=== PATIENT | female | born 1975 | race Caucasian/White ===

== ENCOUNTER 2023-03-01 11:47 | Emergency (ER) | payer BC, SELFPAY ==
[2023-03-01 11:58] VITALS: BP 153/94; PULSE 89; RESP 18; TEMP 36.8; O2SAT 94
--- NOTE | 2023-03-01 12:19 | PC.NURSE ---
pt arrived with aden catheter in place. pt states unknown when catheter was last changed. pt states she does not have home health and is unable to drive herself and has not been able to get to her appointments with her urologist. pt became upset when asked why she does not use home health pt donovanly states You guys are not listening to me, I cant drive myself to appointments . RN informed pt that home health will come directly to her home to help her with her care.
--- NOTE | 2023-03-01 12:22 | ED.ABDPAIN1 ---
HPI - Abdominal Pain General Chief Complaint: Urogenital-Female Stated Complaint: UTI SYMPTOMS Time Seen by Provider: 03/01/23 11:56 Source: patient Mode of arrival: Wheelchair Limitations: physical limitation History of Present Illness HPI narrative: this patient well known to us here for her ongoing problems and challenges with her urinary Alvares catheter system. She was told by her urologist to present to the emergency room for evaluation. She's undergone a number surgical procedures both at the [facility] in [place], [facility] ([facility]3] and since endoscopy and now she is under care of a urologist over in [facility]. She's not been running a fever, she's not had vomiting or diarrhea. From time to time her Alvares catheter falls out in the past, and to be replaced in the emergency room setting. Related Data Home Medications Medication Instructions Recorded Confirmed buprenorphine 8 mg-naloxone 2 mg 2.5 film sublingual Q24H 03/01/23 03/01/23 sublingual film bupropion HCl 150 mg 24 hr tablet, 150 mg PO DAILY 03/01/23 03/01/23 extended release cyclobenzaprine 10 mg tablet 10 mg PO Q8H 03/01/23 03/01/23 Allergies Allergy/AdvReac Type Severity Reaction Status Date / Time codeine Allergy Severe Verified 03/01/23 11:58 Penicillins Allergy Severe Anaphylaxis Verified 03/01/23 11:58 quetiapine [From Seroquel] Allergy Severe Seizure Verified 03/01/23 11:58 PFSH PFSH Social History Smoking status: Current every day smoker Exam Narrative Exam Narrative: awake alert good historian vital signs are normal. She looks very well does not appear ill or toxic or septic. This is a problem focused examination. Her abdominal area is not distended there is no guarding rebound or rigidity. Previous surgical incisions are noted. The nursing staff indicated that her arrival fully catheter was clogged did not appear to be in very good condition and was easily removed. We were able replace it with a nice new Alvares catheter and took a urine specimen from the new Alvares catheter for analysis. Screening lab work done because she says she feels thirsty. Her potassium was slightly low side but no other acute problems were noted on her lab Constitutional Vital Signs - 24 hr 03/01/23 11:58 Temperature 98.3 F Pulse Rate [Monitor] 89 Respiratory Rate 18 Blood Pressure [Left Arm] 153/94 H Pulse Oximetry 94 L Oxygen Delivery Method Room Air Course Vital Signs Vital signs: Vital Signs Temperature 98.3 F 03/01/23 11:58 Pulse Rate 89 03/01/23 11:58 Respiratory Rate 18 03/01/23 11:58 Blood Pressure 153/94 H 03/01/23 11:58 Pulse Oximetry 94 L 03/01/23 11:58 Oxygen Delivery Method Room Air 03/01/23 11:58 Temperature 98.3 F 03/01/23 11:58 Pulse Rate 89 03/01/23 11:58 Respiratory Rate 18 03/01/23 11:58 Blood Pressure 153/94 H 03/01/23 11:58 Pulse Oximetry 94 L 03/01/23 11:58 Oxygen Delivery Method Room Air 03/01/23 11:58 MDM - Abdominal Pain MDM Narrative Medical decision making narrative: patient here essentially for Alvares catheter change which is frequent for her. Her urine suggests early infection Maryanne will treat based on those findings and her history. Await urine cultures. Potassium will be given here in the Emergency Room. Lab Data Labs: Lab Results 03/01/23 03/01/23 03/01/23 Range/Units 12:11 12:29 12:33 WBC 11.2 H (4.0-11.0) 10^3/uL RBC 5.24 (4.20-5.40) 10^6/uL Hgb 15.8 (12.0-16.0) g/dL Hct 45.0 (36.0-48.0) % MCV 85.9 (81.0-99.0) fL MCH 30.2 (26.7-34.0) pg MCHC 35.1 (29.9-35.2) g/dL RDW 12.7 (11.0-15.0) % Plt Count 325 (150-450) 10^3/uL MPV 9.0 L (9.5-13.5) fL Neut % (Auto) 58.3 (43.0-75.0) % Lymph % (Auto) 33.0 (20.5-60.0) % [place] % (Auto) 4.9 (1.7-12.0) % Eos % (Auto) 2.8 (0.9-7.0) % Baso % (Auto) 0.7 (0.2-2.0) % Neut # (Auto) 6.5 (1.4-6.5) 10^3/uL Lymph # (Auto) 3.7 (1.2-3.8) 10^3/uL [place] # (Auto) 0.6 (0.3-0.8) 10^3/uL Eos # (Auto) 0.3 (0.0-0.7) 10^3/uL Baso # (Auto) 0.1 (0.0-0.1) 10^3/uL Abs Immat Gran (auto) 0.03 (0.00-0.03) 10^3/uL Imm/Tot Granulo (auto) 0.3 (0.0-0.5) % Sodium 136 (136-145) mmol/L Potassium 3.0 L (3.5-5.1) mmol/L Chloride 100 (98-107) mmol/L Carbon Dioxide 29.5 (21.0-32.0) mmol/L Anion Gap 9.5 BUN 8.0 (7.0-18.0) mg/dL Creatinine 0.80 (0.55-1.02) mg/dL Est GFR ( Amer) >60 (>=60) Est GFR (Non-Af Amer) >60 (>=60) BUN/Creatinine Ratio 10.0 Glucose 102 (74-106) mg/dL Calcium 9.0 (8.5-10.1) mg/dL Total Bilirubin 0.6 (0.2-1.0) mg/dL AST 15 (15-37) U/L ALT 27 (14-59) U/L Alkaline Phosphatase 213 H (46-116) U/L Total Protein 7.7 (6.4-8.2) g/dL Albumin 3.5 (3.4-5.0) g/dL Globulin 4.2 g/dL Albumin/Globulin Ratio 0.8 Urine Color Lt. yellow (YELLOW) Urine Clarity Clear (CLEAR) Urine pH 6.0 (5.0-9.0) Ur Specific [place] 1.010 (1.005-1.025) Urine Protein Negative (NEG/TRACE) mg/dL Urine Glucose (UA) Negative (NEGATIVE) mg/dL Urine Ketones Negative (NEGATIVE) mg/dL Urine Occult Blood Moderate A (NEGATIVE) Urine Nitrite Negative (NEGATIVE) Urine Bilirubin Negative (NEGATIVE) Urine Urobilinogen 1.0 (0.2-1.0) EU/dL Ur Leukocyte Esterase Moderate A (NEGATIVE) Urine RBC 5-10 A (0-2) #/HPF Urine WBC 20-50 A (NONE SEEN) #/HPF Ur Squamous Epith Cells Rare (NONE/RARE) #/LPF Urine Crystals None seen (None Seen) #/HPF Urine Bacteria Trace A (NONE SEEN) #/HPF Urine Casts None seen (NONE SEEN) #/LPF Urine Mucus None seen (NONE SEEN) Ur Culture Indicated? Yes Discharge Plan Discharge Chief Complaint: Urogenital-Female Clinical Impression: Urinary catheter (Alvares) change required Patient Disposition: Home, Self-Care Time of Disposition Decision: 13:07 Prescriptions / Home Meds: No Action bupropion HCl 150 mg tablet extended release 24 hr 150 mg PO DAILY buprenorphine-naloxone 8-2 mg film 2.5 film sublingual Q24H cyclobenzaprine 10 mg tablet 10 mg PO Q8H Instructions: Alvares Catheter Placement and Care (ED) Additional Instructions: relaxant Stand Alone Forms: Portal Instructions Referrals: Shaikh Obrien MD [Primary Care Provider] - 1 week
--- NOTE | 2023-03-01 12:28 | PC.NURSE ---
pt arrived to er with aden catheter in place. pt was unsure when aden was changed last. catheter tubing and drainage bag was full of sediment and pt was leaking urine around catheter. Aden catheter was changed on arrival and a urine sample was collected and sent to lab.
[2023-03-01 12:33] LABS: Bilirubin Urine NEGATIVE (NEGATIVE); Blood Urine MODERATE (NEGATIVE); Clarity Urine CLEAR (CLEAR); Color Urine LT. YELLOW (YELLOW); Glucose Urine UA NEGATIVE (NEGATIVE); Ketones Urine NEGATIVE (NEGATIVE); Leukocyte Esterase Urine MODERATE (NEGATIVE); Nitrite Urine NEGATIVE (NEGATIVE); Protein Urine NEGATIVE (NEG/TRACE); Urine Microscopic Indicated YES
[2023-03-01 12:34] LABS: WBC Urine 20-50 #/HPF (NONE SEEN)
[2023-03-01 12:35] LABS: Bacteria Urine TRACE #/HPF (NONE SEEN); Cast Seen? NONE SEEN #/LPF (NONE SEEN); Crystals Seen? None Seen #/HPF (None Seen); Mucus Urine NONE SEEN (NONE SEEN); Squamous Epithelial Cell Urine RARE #/LPF (NONE/RARE); Urine Culture Indicated YES
[2023-03-01 12:37] LABS: Basophils Absolute Auto 0.1 10^3/uL (0.0-0.1); Basophils Percent Auto 0.7 % (0.2-2.0); Eosinophils Absolute Auto 0.3 10^3/uL (0.0-0.7); Eosinophils Percent Auto 2.8 % (0.9-7.0); Hemoglobin 15.8 g/dL (12.0-16.0); Immature Granulocytes Abs Auto 0.03 10^3/uL (0.00-0.03); Immature Granulocytes Pct Auto 0.3 % (0.0-0.5); Lymphocytes Absolute Auto 3.7 10^3/uL (1.2-3.8); Mean Corpuscular HGB Conc 35.1 g/dL (29.9-35.2); Mean Corpuscular Hemoglobin 30.2 pg (26.7-34.0); Mean Corpuscular Volume 85.9 fL (81.0-99.0); Monocytes Absolute Auto 0.6 10^3/uL (0.3-0.8); Monocytes Percent Auto 4.9 % (1.7-12.0); Neutrophils Absolute Auto 6.5 10^3/uL (1.4-6.5); Neutrophils Percent Auto 58.3 % (43.0-75.0); Platelet Count 325 10^3/uL (150-450); Red Blood Count 5.24 10^6/uL (4.20-5.40); Red Cell Distribution Width 12.7 % (11.0-15.0); White Blood Count 11.2 10^3/uL (4.0-11.0)
[2023-03-01 12:55] LABS: Alanine Aminotransferase 27 U/L (14-59); Albumin Globulin Ratio 0.8; Albumin Level 3.5 g/dL (3.4-5.0); Alkaline Phosphatase 213 U/L (46-116); Anion Gap 9.5; Aspartate Amino Transferase 15 U/L (15-37); Bilirubin Total 0.6 mg/dL (0.2-1.0); Carbon Dioxide 29.5 mmol/L (21.0-32.0); Chloride 100 mmol/L (98-107); Estimated GFR (African America >60 (>=60); Estimated GFR (Non-African Ame >60 (>=60); Globulin 4.2 g/dL; Glucose 102 mg/dL (74-106); Sodium 136 mmol/L (136-145); Total Protein 7.7 g/dL (6.4-8.2)
[2023-03-01] MEDS: POTASSIUM CITRATE 10 MEQ ER TABLET 20 MEQ PO (13:38)
== END 2023-03-01 13:54 | disposition home or self-care (01) ==
PROVIDERS: Emergency Provider Emergency Medicine Emergency Medical Services; PCP Internal Medicine
DX: Z46.6 Encounter for fitting and adjustment of urinary device (principal); Z79.899 Other long term (current) drug therapy
CPT/HCPCS: 36415; 51702; 80053; 81003; 81015; 85025; 87086; 87150; 87186; 99284

== ENCOUNTER 2023-03-30 03:25 | Emergency (ER) | payer BC, SELFPAY ==
[2023-03-30 03:27] VITALS: BP 156/94; PULSE 97; RESP 16; TEMP 37.2; O2SAT 100; BMI 35.1
--- NOTE | 2023-03-30 03:53 | ED_ITS ---
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 Patient states she had a back surgery in 2008. Since then she has had urinary and bowel incontinence. She has an indwelling Alvares catheter which accidentally fell on this morning. She states in the last 3 days she has been thirsty and drinking a lot of fluids however her urinary output doesn't seem to be the same as usual. She was recently treated with Levaquin for a urinary tract infection. Culture demonstrates that it grew Levaquin sensitivity and pseudomonas. The mauricio ent denies any fever, or chills. She states she has generalized pain. She has chronic back pain has very poor dentition and she is having dental pain. She denies any throat pain, low edema or difficulty swallowing. She has bilateral pressure ulcers to her posterior thighs. Patient voices her frustration to the medical field states that she was hooked on opioids in the past and she is trying to the right now. She denies any suicide, homicide ideation. She denies any fall or trauma. She denies any chest pain, shortness of breath. She denies any nausea, vomiting, or diarrhea. She denies any abdominal pain. She denies any upper respiratory infection symptoms. Related Data Home Medications Medication Instructions Recorded Confirmed buprenorphine 8 mg-naloxone 2 mg 2.5 film sublingual Q24H 03/01/23 03/30/23 sublingual film bupropion HCl 150 mg 24 hr tablet, 150 mg PO DAILY 03/01/23 03/30/23 extended release cyclobenzaprine 10 mg tablet 10 mg PO Q8H 03/01/23 03/01/23 diazepam 5 mg tablet 5 mg PO Q8H PRN anxiety 03/30/23 03/30/23 furosemide 40 mg tablet 40 mg PO DAILY 03/30/23 03/30/23 gabapentin 800 mg tablet 800 mg PO TID 03/30/23 03/30/23 oxybutynin chloride 15 mg 15 mg PO DAILY 03/30/23 03/30/23 tablet,extended release 24 hr potassium bicarbonate-citric acid 20 meq PO BID 03/30/23 03/30/23 20 mEq effervescent tablet (Effer-K) promethazine 12.5 mg tablet 12.5 mg PO TID PRN nausea and 03/30/23 03/30/23 vomiting tizanidine 4 mg tablet 4 mg PO Q8H PRN muscle spasticity 03/30/23 03/30/23 zolpidem 12.5 mg tablet,extended 12.5 mg PO DAILY 03/30/23 03/30/23 release,multiphase Previous Rx's Medication Instructions Recorded levofloxacin 750 mg tablet 750 mg PO DAILY 7 days #7 tabs 03/30/23 Allergies Allergy/AdvReac Type Severity Reaction Status Date / Time codeine Allergy Severe Verified 03/30/23 03:34 Penicillins Allergy Severe Anaphylaxis Verified 03/30/23 03:34 quetiapine [From Seroquel] Allergy Severe Seizure Verified 03/30/23 03:34 Review of Systems ROS Status of ROS 10 or more systems reviewed and unremarkable except as noted in history and below [facility] Social History Smoking status: Current every day smoker Exam Narrative Exam Narrative: Nurses notes and vital signs reviewed and patient is not hypoxic. General: Nontoxic,chronic ill,and in no apparent distress. Skin: Warm, dry, mild pallor noted. Head: Normocephalic, atraumatic. Neck: Supple, non-tender. Eye: Pupils are equal, round and EOMI. No scleral icterus. Ears, Nose, Mouth, and Throat: TM clear, no posterior oropharynx erythema or nasal mucosal hypertrophy, uvula is mid-line Oral mucosa is dry, poor dentition Cardiovascular: Regular Rate and Rhythm without murmur, gallop or rub. Respiratory: No accessory muscle use or respiratory distress. Lungs are clear to auscultation, no wheezing, rales or rhonchi Chest Wall: no tenderness Back: No midline thoracic or lumbar vertebral tenderness. No CVA tenderness Musculoskeletal: Bilateral pressure sores to the posterior thighs. Small amount of erythema, no induration, or warmth. Bilateral lower extremity edema. Left lower extremity has pretibial erythema, and warmth. no calf or popliteal tenderness, +2 lower extremity edema/swelling GI: obese,Abdomen is soft, non-distended. Normal bowel sounds. No masses appreciated. No tenderness to palpation. No rebound, guarding, or rigidity noted. Neurological: A&O x4. No cranial nerve dysfunction observed. Psychiatric: Cooperative and interactive. tearful Constitutional Vital Signs, click to edit/add: Last Vital Signs Temp 98.9 F 03/30/23 06:28 Pulse 92 H 03/30/23 06:28 Resp 20 03/30/23 06:28 BP 138/70 H 03/30/23 06:28 Pulse Ox 99 03/30/23 06:28 O2 Del Method Room Air 03/30/23 06:28 Course Vital Signs Vital signs: Vital Signs Temperature 98.9 F 03/30/23 03:27 Pulse Rate 97 H 03/30/23 03:27 Respiratory Rate 16 03/30/23 03:27 Blood Pressure 156/94 H 03/30/23 03:27 Pulse Oximetry 100 03/30/23 03:27 Oxygen Delivery Method Room Air 03/30/23 03:27 Temperature 98.9 F 03/30/23 06:28 Pulse Rate 92 H 03/30/23 06:28 Respiratory Rate 20 03/30/23 06:28 Blood Pressure 138/70 H 03/30/23 06:28 Pulse Oximetry 99 03/30/23 06:28 Oxygen Delivery Method Room Air 03/30/23 06:28 MDM - Female Genitourinary MDM Narrative Medical decision making narrative: Patient given IV fluids and Levaquin. Alvares catheter was replaced with an 18 Sami. Patient was given morphine, and dental anesthesia. Labs studies were ordered and are pending. Patient will be signed out to Dr. david at the end of my shift awaiting labs, reevaluation, and disposition. Differential Diagnosis Differential diagnosis: Likely urinary tract infection Medical Records Attestation: I reviewed the patient's medical records. Lab Data Attestation: I reviewed the patient's lab results. Labs: Lab Results 03/30/23 03/30/23 Range/Units 04:45 05:10 WBC 13.8 H (4.0-11.0) 10^3/uL RBC 4.99 (4.20-5.40) 10^6/uL Hgb 15.0 (12.0-16.0) g/dL Hct 43.4 (36.0-48.0) % MCV 87.0 (81.0-99.0) fL MCH 30.1 (26.7-34.0) pg MCHC 34.6 (29.9-35.2) g/dL RDW 13.1 (11.0-15.0) % Plt Count 313 (150-450) 10^3/uL MPV 9.3 L (9.5-13.5) fL Neut % (Auto) 69.7 (43.0-75.0) % Lymph % (Auto) 22.2 (20.5-60.0) % [place] % (Auto) 5.3 (1.7-12.0) % Eos % (Auto) 2.0 (0.9-7.0) % Baso % (Auto) 0.5 (0.2-2.0) % Neut # (Auto) 9.6 H (1.4-6.5) 10^3/uL Lymph # (Auto) 3.1 (1.2-3.8) 10^3/uL [place] # (Auto) 0.7 (0.3-0.8) 10^3/uL Eos # (Auto) 0.3 (0.0-0.7) 10^3/uL Baso # (Auto) 0.1 (0.0-0.1) 10^3/uL Abs Immat Gran (auto) 0.04 H (0.00-0.03) 10^3/uL Imm/Tot Granulo (auto) 0.3 (0.0-0.5) % Sodium 139 (136-145) mmol/L Potassium 3.7 (3.5-5.1) mmol/L Chloride 102 (98-107) mmol/L Carbon Dioxide 28.0 (21.0-32.0) mmol/L Anion Gap 12.7 BUN 6.0 L (7.0-18.0) mg/dL Creatinine 0.72 (0.55-1.02) mg/dL Est GFR ( Amer) >60 (>=60) Est GFR (Non-Af Amer) >60 (>=60) BUN/Creatinine Ratio 8.3 Glucose 101 (74-106) mg/dL Calcium 8.8 (8.5-10.1) mg/dL Urine Color Lt. yellow (YELLOW) Urine Clarity Clear (CLEAR) Urine pH 6.0 (5.0-9.0) Ur Specific [place] 1.020 (1.005-1.025) Urine Protein 30 A (NEG/TRACE) mg/dL Urine Glucose (UA) Negative (NEGATIVE) mg/dL Urine Ketones Negative (NEGATIVE) mg/dL Urine Occult Blood Small A (NEGATIVE) Urine Nitrite Negative (NEGATIVE) Urine Bilirubin Negative (NEGATIVE) Urine Urobilinogen 1.0 (0.2-1.0) EU/dL Ur Leukocyte Esterase Large A (NEGATIVE) Urine RBC 0-2 (0-2) #/HPF Urine WBC 50-75 A (NONE SEEN) #/HPF Ur Squamous Epith Cells Moderate A (NONE/RARE) #/LPF Urine Crystals None seen (None Seen) #/HPF Urine Bacteria Large A (NONE SEEN) #/HPF Urine Casts None seen (NONE SEEN) #/LPF Urine Mucus None seen (NONE SEEN) Ur Culture Indicated? Yes Discharge Plan Discharge Chief Complaint: Urogenital-Female Clinical Impression: Urinary tract infection, Cellulitis, Urinary catheter (Alvares) change required Patient Disposition: Home, Self-Care Time of Disposition Decision: 07:15 Condition: Good Mode of Transportation: Private Vehicle Prescriptions / Home Meds: New levofloxacin 750 mg tablet 750 mg PO DAILY 7 Days Qty: 7 0RF No Action diazepam 5 mg tablet 5 mg PO Q8H PRN (Reason: anxiety) furosemide 40 mg tablet 40 mg PO DAILY gabapentin 800 mg tablet 800 mg PO TID oxybutynin chloride 15 mg tablet extended release 24hr 15 mg PO DAILY Effer-K 20 mEq tablet, effervescent 20 meq PO BID promethazine 12.5 mg tablet 12.5 mg PO TID PRN (Reason: nausea and vomiting) tizanidine 4 mg tablet 4 mg PO Q8H PRN (Reason: muscle spasticity) zolpidem 12.5 mg tablet,ext release multiphase 12.5 mg PO DAILY Rx Instructions: HS bupropion HCl 150 mg tablet extended release 24 hr 150 mg PO DAILY buprenorphine-naloxone 8-2 mg film 2.5 film sublingual Q24H cyclobenzaprine 10 mg tablet 10 mg PO Q8H Instructions: Alvares Catheter Placement and Care (ED), Catheter-associated Urinary Tract Infection (ED) Stand Alone Forms: Portal Instructions Referrals: Shaikh Obrien MD [Primary Care Provider] - 1 week Discharge Date/Time: 03/30/23 08:04
[2023-03-30 05:30] LABS: Bilirubin Urine NEGATIVE (NEGATIVE); Blood Urine SMALL (NEGATIVE); Clarity Urine CLEAR (CLEAR); Color Urine LT. YELLOW (YELLOW); Glucose Urine UA NEGATIVE (NEGATIVE); Ketones Urine NEGATIVE (NEGATIVE); Leukocyte Esterase Urine LARGE (NEGATIVE); Nitrite Urine NEGATIVE (NEGATIVE); Protein Urine 30 mg/dL (NEG/TRACE); Urine Microscopic Indicated YES
[2023-03-30 05:31] LABS: Basophils Absolute Auto 0.1 10^3/uL (0.0-0.1); Basophils Percent Auto 0.5 % (0.2-2.0); Eosinophils Absolute Auto 0.3 10^3/uL (0.0-0.7); Hematocrit 43.4 % (36.0-48.0); Immature Granulocytes Abs Auto 0.04 10^3/uL (0.00-0.03); Immature Granulocytes Pct Auto 0.3 % (0.0-0.5); Lymphocytes Absolute Auto 3.1 10^3/uL (1.2-3.8); Lymphocytes Percent Auto 22.2 % (20.5-60.0); Mean Corpuscular HGB Conc 34.6 g/dL (29.9-35.2); Mean Corpuscular Hemoglobin 30.1 pg (26.7-34.0); Mean Platelet Volume 9.3 fL (9.5-13.5); Monocytes Absolute Auto 0.7 10^3/uL (0.3-0.8); Monocytes Percent Auto 5.3 % (1.7-12.0); Neutrophils Absolute Auto 9.6 10^3/uL (1.4-6.5); Neutrophils Percent Auto 69.7 % (43.0-75.0); Platelet Count 313 10^3/uL (150-450); Red Blood Count 4.99 10^6/uL (4.20-5.40); Red Cell Distribution Width 13.1 % (11.0-15.0); White Blood Count 13.8 10^3/uL (4.0-11.0)
[2023-03-30 05:37] LABS: Anion Gap 12.7; BUN Creatinine Ratio 8.3; Calcium 8.8 mg/dL (8.5-10.1); Chloride 102 mmol/L (98-107); Estimated GFR (African America >60 (>=60); Estimated GFR (Non-African Ame >60 (>=60); Glucose 101 mg/dL (74-106); Potassium 3.7 mmol/L (3.5-5.1); Sodium 139 mmol/L (136-145)
[2023-03-30 05:38] LABS: Bacteria Urine LARGE #/HPF (NONE SEEN); Cast Seen? NONE SEEN #/LPF (NONE SEEN); Crystals Seen? None Seen #/HPF (None Seen); Mucus Urine NONE SEEN (NONE SEEN); RBC Urine 0-2 #/HPF (0-2); Squamous Epithelial Cell Urine MODERATE #/LPF (NONE/RARE); Urine Culture Indicated YES; WBC Urine 50-75 #/HPF (NONE SEEN)
[2023-03-30] MEDS: 0.9 % SODIUM CHLORIDE 1,000 ML 1000 ML IV (05:44)
[2023-03-30] MEDS: MORPHINE SULFATE 4 MG/ML VIAL IV (05:46)
[2023-03-30] MEDS: LEVOFLOXACIN IN DEXTROSE 5 % 750 MG/150 ML IV.SOLN 100 MG IV (05:46)
[2023-03-30 06:28] VITALS: BP 138/70; PULSE 92; RESP 20; TEMP 37.2; O2SAT 99
== END 2023-03-30 08:04 | disposition home or self-care (01) ==
PROVIDERS: Emergency Provider Emergency Medicine; PCP Internal Medicine
DX: T83.098A Other mechanical complication of other urinary catheter, initial encounter (principal); N39.0 Urinary tract infection, site not specified; L03.115 Cellulitis of right lower limb; L03.116 Cellulitis of left lower limb; Z79.899 Other long term (current) drug therapy; F17.210 Nicotine dependence, cigarettes, uncomplicated
CPT/HCPCS: 36415; 80048; 81003; 81015; 85025; 87040; 87086; 87150; 87186; 96374; 96375; 99284

== ENCOUNTER 2023-05-02 09:00 | Emergency (ER) | payer BC, SELFPAY ==
[2023-05-02 09:06] VITALS: BP 145/92; PULSE 86; RESP 16; TEMP 37.1; O2SAT 99; BMI 35.9
--- NOTE | 2023-05-02 09:09 | ED.FEMALEGU1 ---
HPI - Female Genitourinary General Chief complaint: Urogenital-Female Stated complaint: CATHETER CAME OUT Time Seen by Provider: 05/02/23 09:09 History of Present Illness HPI Narrative: Patient persist emergency department complaining of Alvares catheter coming out. Patient states this week she started noticing her urine cloudy and with the smell. She called her urologist to get the prescription for a urine sample and was told she had go to the office. The patient does not have an appointment on to May 12 in the meantime the catheter came off today so she came in for evaluation. Patient states she has 2 hips bed sores that she wants us to look at. Patient denies any fever, or chills. She denies any vomiting and states that she had nausea. She denies any abdominal pain. She states she has been working with her urologist to discuss his suprapubic catheter. Related Data Home Medications Medication Instructions Recorded Confirmed buprenorphine 8 mg-naloxone 2 mg 2.5 film sublingual Q24H 03/01/23 03/30/23 sublingual film bupropion HCl 150 mg 24 hr tablet, 150 mg PO DAILY 03/01/23 03/30/23 extended release cyclobenzaprine 10 mg tablet 10 mg PO Q8H 03/01/23 03/01/23 diazepam 5 mg tablet 5 mg PO Q8H PRN anxiety 03/30/23 03/30/23 furosemide 40 mg tablet 40 mg PO DAILY 03/30/23 03/30/23 gabapentin 800 mg tablet 800 mg PO TID 03/30/23 03/30/23 oxybutynin chloride 15 mg 15 mg PO DAILY 03/30/23 03/30/23 tablet,extended release 24 hr potassium bicarbonate-citric acid 20 meq PO BID 03/30/23 03/30/23 20 mEq effervescent tablet (Effer-K) promethazine 12.5 mg tablet 12.5 mg PO TID PRN nausea and 03/30/23 03/30/23 vomiting tizanidine 4 mg tablet 4 mg PO Q8H PRN muscle spasticity 03/30/23 03/30/23 zolpidem 12.5 mg tablet,extended 12.5 mg PO DAILY 03/30/23 03/30/23 release,multiphase Previous Rx's Medication Instructions Recorded levofloxacin 750 mg tablet 750 mg PO DAILY 7 days #7 tabs 03/30/23 Allergies Allergy/AdvReac Type Severity Reaction Status Date / Time codeine Allergy Severe Verified 05/02/23 09:16 Penicillins Allergy Severe Anaphylaxis Verified 05/02/23 09:16 quetiapine [From Seroquel] Allergy Severe Seizure Verified 05/02/23 09:16 Review of Systems ROS Status of ROS 10 or more systems reviewed and unremarkable except as noted in history and below [facility] Social History Smoking status: Current every day smoker Exam Narrative Exam Narrative: Nurses notes and vital signs reviewed and patient is not hypoxic. General: Nontoxic, Well-appearing and in no apparent distress. Skin: Warm, dry, no pallor noted. Quarter size ulcerations to bilateral dorsum of the hips. There is no exudate. No erythema noted. Head: Normocephalic, atraumatic. Neck: Supple, non-tender. Eye: Pupils are equal, round and EOMI. No scleral icterus. Ears, Nose, Mouth, and Throat: TM clear, no posterior oropharynx erythema or nasal mucosal hypertrophy, uvula is mid-line Oral mucosa is moist Cardiovascular: Regular Rate and Rhythm without murmur, gallop or rub. Respiratory: No accessory muscle use or respiratory distress. Lungs are clear to auscultation, no wheezing, rales or rhonchi Chest Wall: no tenderness Back: No midline thoracic or lumbar vertebral tenderness. No CVA tenderness Musculoskeletal: normal ROM, no calf or popliteal tenderness, no lower extremity edema/swelling GI: Abdomen is soft, non-distended. Normal bowel sounds. No tenderness to palpation. No rebound, guarding, or rigidity noted. Neurological: A&O x4. No cranial nerve dysfunction observed. wheelchair. Psychiatric: Cooperative and interactive. Normal mood and affect. Constitutional Vital Signs, click to edit/add: Last Vital Signs Temp 98.7 F 05/02/23 09:06 Pulse 86 05/02/23 09:06 Resp 16 05/02/23 09:06 BP 145/92 H 05/02/23 09:06 Pulse Ox 99 05/02/23 09:06 O2 Del Method Room Air 05/02/23 09:06 Course Vital Signs Vital signs: Vital Signs Temperature 98.7 F 05/02/23 09:06 Pulse Rate 86 05/02/23 09:06 Respiratory Rate 16 05/02/23 09:06 Blood Pressure 145/92 H 05/02/23 09:06 Pulse Oximetry 99 05/02/23 09:06 Oxygen Delivery Method Room Air 05/02/23 09:06 Temperature 98.7 F 05/02/23 09:06 Pulse Rate 86 05/02/23 09:06 Respiratory Rate 16 05/02/23 09:06 Blood Pressure 145/92 H 05/02/23 09:06 Pulse Oximetry 99 05/02/23 09:06 Oxygen Delivery Method Room Air 05/02/23 09:06 MDM - Female Genitourinary MDM Narrative Medical decision making narrative: Patient had a Alvares catheter reinserted. Patient has urinary incontinence chronically. It was no urine immediately returned with a Alvares catheter inserted. The patient stated she wanted to leave and would not wait for urinalysis results. Patient advised we will call her back with the results or we will call in an antibiotic if needed. Patient is not currently on any antibiotics. She is also advised to follow-up with wound care and primary care doctor. At this time the patient is without objective evidence of an acute process requiring hospitalization or inpatient management. The patient has remained hemodynamically stable. No additional indication for emergent studies at this time. I answered all questions. Discussed discharge instructions including standard anticipatory guidance and what should prompt a return to the emergency department, including if they get worse are not getting better or develops any new or concerning symptoms. I've given them specific time frame in which to follow-up, and who to follow-up with. The patient demonstrates understanding. Patient is nontoxic and stable for discharge with outpatient follow-up. This note was created with the assistance of a speech recognition program. Although the intention is to generate documents that actually reflects the content of the visit, no guarantees can be provided that every mistake has been identified and corrected by editing. Based on last month urinary culture the patient had Escherichia coli. We'll call if Bactrim D is to take twice a day ?10 days. Differential Diagnosis Differential diagnosis: Likely urinary tract infection and cystitis Medical Records Attestation: I reviewed the patient's medical records. Lab Data Attestation: I reviewed the patient's lab results. Labs: Lab Results 05/02/23 Range/Units 10:55 Urine Color Yellow (YELLOW) Urine Clarity Cloudy A (CLEAR) Urine pH 8.5 (5.0-9.0) Ur Specific [place] 1.020 (1.005-1.025) Urine Protein >=300 A (NEG/TRACE) mg/dL Urine Glucose (UA) Negative (NEGATIVE) mg/dL Urine Ketones Negative (NEGATIVE) mg/dL Urine Occult Blood Large A (NEGATIVE) Urine Nitrite Negative (NEGATIVE) Urine Bilirubin Negative (NEGATIVE) Urine Urobilinogen >=8.0 (0.2-1.0) EU/dL Ur Leukocyte Esterase Moderate A (NEGATIVE) Urine RBC 20-50 A (0-2) #/HPF Urine WBC 20-50 A (NONE SEEN) #/HPF Ur Squamous Epith Cells Few A (NONE/RARE) #/LPF Urine Crystals Not Reportable Urine Bacteria Small A (NONE SEEN) #/HPF Urine Casts Not Reportable Urine Mucus Moderate A (NONE SEEN) Ur Culture Indicated? Yes Discharge Plan Discharge Chief Complaint: Urogenital-Female Clinical Impression: Urinary catheter (Alvares) change required, Pressure ulcer Patient Disposition: Home, Self-Care Time of Disposition Decision: 10:49 Condition: Good Mode of Transportation: Private Vehicle Prescriptions / Home Meds: No Action diazepam 5 mg tablet 5 mg PO Q8H PRN (Reason: anxiety) furosemide 40 mg tablet 40 mg PO DAILY gabapentin 800 mg tablet 800 mg PO TID oxybutynin chloride 15 mg tablet extended release 24hr 15 mg PO DAILY Effer-K 20 mEq tablet, effervescent 20 meq PO BID promethazine 12.5 mg tablet 12.5 mg PO TID PRN (Reason: nausea and vomiting) tizanidine 4 mg tablet 4 mg PO Q8H PRN (Reason: muscle spasticity) zolpidem 12.5 mg tablet,ext release multiphase 12.5 mg PO DAILY Rx Instructions: HS levofloxacin 750 mg tablet 750 mg PO DAILY 7 Days Qty: 7 0RF bupropion HCl 150 mg tablet extended release 24 hr 150 mg PO DAILY buprenorphine-naloxone 8-2 mg film 2.5 film sublingual Q24H cyclobenzaprine 10 mg tablet 10 mg PO Q8H Instructions: Alvares Catheter Placement and Care (ED), Pressure Injury (ED) Stand Alone Forms: Portal Instructions Referrals: Shaikh Obrien MD [Primary Care Provider] - 1 week Discharge Date/Time: 05/02/23 11:20
[2023-05-02] MEDS: PROMETHAZINE HCL 25 MG TABLET PO (09:56)
--- NOTE | 2023-05-02 11:05 | PC.NURSE ---
Pt c/o chronic urinary catheter falling out this morning when she stood up. foul smelling urine. pt also has pressure wounds on her bilat buttock from chronic wheelchair use. no drainage noted. wound cx taken from site per dr chu
--- NOTE | 2023-05-02 11:09 | PC.NURSE ---
URINE COLLECTED AT THIS TIME
[2023-05-02 11:21] LABS: Bilirubin Urine NEGATIVE (NEGATIVE); Blood Urine LARGE (NEGATIVE); Color Urine YELLOW (YELLOW); Glucose Urine UA NEGATIVE (NEGATIVE); Ketones Urine NEGATIVE (NEGATIVE); Leukocyte Esterase Urine MODERATE (NEGATIVE); Nitrite Urine NEGATIVE (NEGATIVE); Protein Urine >=300 mg/dL (NEG/TRACE); Urobilinogen Urine >=8.0 EU/dL (0.2-1.0); pH Urine 8.5 (5.0-9.0)
[2023-05-02 11:37] LABS: Clarity Urine CLOUDY (CLEAR); Urine Microscopic Indicated YES
[2023-05-02 11:38] LABS: RBC Urine 20-50 #/HPF (0-2); WBC Urine 20-50 #/HPF (NONE SEEN)
[2023-05-02 11:39] LABS: Bacteria Urine SMALL #/HPF (NONE SEEN); Mucus Urine MODERATE (NONE SEEN); Squamous Epithelial Cell Urine FEW #/LPF (NONE/RARE)
[2023-05-02 11:40] LABS: Urine Culture Indicated YES
--- NOTE | 2023-05-02 14:03 | PC.NURSE ---
1200 - Bactrim DS prescription called into [facility] in [place] for patient -- verbal order by Dr Bray. Called pt to let her know to pick it up. Verbally understands.
== END 2023-05-02 11:20 | disposition home or self-care (01) ==
PROVIDERS: Emergency Provider Emergency Medicine; PCP Internal Medicine
DX: Z46.6 Encounter for fitting and adjustment of urinary device (principal); L89.229 Pressure ulcer of left hip, unspecified stage; L89.219 Pressure ulcer of right hip, unspecified stage; F17.210 Nicotine dependence, cigarettes, uncomplicated; Z79.899 Other long term (current) drug therapy
CPT/HCPCS: 81001; 87070; 87086; 87150; 87186; 99284

== ENCOUNTER 2023-05-27 23:28 | Emergency (ER) | payer BC, SELFPAY ==
[2023-05-27 23:30] VITALS: BP 105/62; PULSE 78; RESP 17; TEMP 36.7; O2SAT 98
--- NOTE | 2023-05-27 23:46 | XR_ITS ---
The [place] [id number] Patient Name: MORALES LEE MRN: [id number] date: 1975 Sex: F Assigned Patient Location: ER Current Patient Location: ED.MAIN Accession/Order Number: [id number] Exam Date: 05/27/2023 23:59 Report Date: 05/28/2023 00:42 At the request of: LALI BENITEZ Procedure: XR abdomen min 2V EXAMINATION: XR abdomen min 2V HISTORY: constipation COMPARISON: No relevant comparison available. FINDINGS: BOWEL GAS PATTERN: No abnormal dilation or deviation. No suspicious fluid levels. Moderate stool burden. CALCIFICATIONS: None suspicious. OTHER: Marked elevation of right hemidiaphragm, grossly stable. Mechanical fusion of thoracic and lumbar spine and sacroiliac joints. XR/XR abdomen min 2V IMPRESSION: 1. No acute or suspicious findings. Moderate stool burden. Electronically authenticated by: ENRIQUE LOWE Date: 05/28/2023 00:42
--- NOTE | 2023-05-27 23:47 | ED_ITS ---
HPI - Abdominal Pain General Chief Complaint: Abdominal Pain Stated Complaint: CONSTIPATION Time Seen by Provider: 05/27/23 23:43 Source: patient Mode of arrival: ambulance Limitations: no limitations History of Present Illness HPI narrative: patient state she had back surgery 2 years ago and since then she has loss control of her bowel and bladder. has lower extremity weakness which severely limits her walking. She has to wear depends. She feels like she has to have a BM but it is not coming out. No nausea or vomiting. Brought to the ER by [facility] Pertinent past history: Reports constipation Related Data Home Medications Medication Instructions Recorded Confirmed buprenorphine 8 mg-naloxone 2 mg 2.5 film sublingual Q24H 03/01/23 03/30/23 sublingual film bupropion HCl 150 mg 24 hr tablet, 150 mg PO DAILY 03/01/23 03/30/23 extended release cyclobenzaprine 10 mg tablet 10 mg PO Q8H 03/01/23 03/01/23 diazepam 5 mg tablet 5 mg PO Q8H PRN anxiety 03/30/23 03/30/23 furosemide 40 mg tablet 40 mg PO DAILY 03/30/23 03/30/23 gabapentin 800 mg tablet 800 mg PO TID 03/30/23 03/30/23 oxybutynin chloride 15 mg 15 mg PO DAILY 03/30/23 03/30/23 tablet,extended release 24 hr potassium bicarbonate-citric acid 20 meq PO BID 03/30/23 03/30/23 20 mEq effervescent tablet (Effer-K) promethazine 12.5 mg tablet 12.5 mg PO TID PRN nausea and 03/30/23 03/30/23 vomiting tizanidine 4 mg tablet 4 mg PO Q8H PRN muscle spasticity 03/30/23 03/30/23 zolpidem 12.5 mg tablet,extended 12.5 mg PO DAILY 03/30/23 03/30/23 release,multiphase Previous Rx's Medication Instructions Recorded levofloxacin 750 mg tablet 750 mg PO DAILY 7 days #7 tabs 03/30/23 Allergies Allergy/AdvReac Type Severity Reaction Status Date / Time codeine Allergy Severe Verified 05/02/23 09:16 Penicillins Allergy Severe Anaphylaxis Verified 05/02/23 09:16 quetiapine [From Seroquel] Allergy Severe Seizure Verified 05/02/23 09:16 Review of Systems ROS Status of ROS 10 or more systems reviewed and unremarkable except as noted in history and below [facility] Social History Smoking status: Current every day smoker Exam Constitutional Vital Signs, click to edit/add: Last Vital Signs Temp 98.0 F 05/27/23 23:30 Pulse 78 05/27/23 23:30 Resp 17 05/27/23 23:30 BP 105/62 05/27/23 23:30 Pulse Ox 98 05/27/23 23:30 O2 Del Method Room Air 05/27/23 23:30 Common normals: no apparent distress, oriented x3, no limitations and healthy appearing Eye Common normals: EOMs intact bilaterally and conjunctivae normal Chest Common normals: inspection of chest normal and palpation of chest normal Respiratory Common normals: normal respiratory effort Cardio Common normals: regular rate, regular rhythm, S1 normal heart sound and S2 normal heart sound GI Common normals: Normal to inspection, nondistended, normoactive bowel sounds present Extremity Common normals: normal to inspection and full ROM Neuro Common normals: oriented x3, CN's II-XII intact bilaterally, moves all extremities and no focal motor deficits Psych Appearance: grossly normal Course Vital Signs Vital signs: Vital Signs Temperature 98.0 F 05/27/23 23:30 Pulse Rate 78 05/27/23 23:30 Respiratory Rate 17 05/27/23 23:30 Blood Pressure 105/62 05/27/23 23:30 Pulse Oximetry 98 05/27/23 23:30 Oxygen Delivery Method Room Air 05/27/23 23:30 Temperature 98.0 F 05/27/23 23:30 Pulse Rate 78 05/27/23 23:30 Respiratory Rate 17 05/27/23 23:30 Blood Pressure 105/62 05/27/23 23:30 Pulse Oximetry 98 05/27/23 23:30 Oxygen Delivery Method Room Air 05/27/23 23:30 MDM - Abdominal Pain MDM Narrative Medical decision making narrative: patient presents with complaint of possible obstipation. Complaining of liquid stools. xray without findings of Obstipation and only moderate constipation. sigmoid on xray is empty. Patient informed there is no evidence she is obstipated. She then points to her left buttocks and states she feels boils or something there. I examined her buttocks with nursing present and no abnormalities. she then commented about left posterior rib cage pain. state she slid out of her wheelchair one week ago and injured this area. Exam finds her chest wall nontender. patient informed there are no acute findings at this time. she does have mod constipation per xray. Advised to follow up with her doctor next week for recheck Imaging Data Abdominal x-ray: Attestation: I have reviewed the pertinent imaging results. Radiologist's impression: the request of: LALI BENITEZ Procedure: XR abdomen min 2V EXAMINATION: XR abdomen min 2V HISTORY: constipation COMPARISON: No relevant comparison available. FINDINGS: BOWEL GAS PATTERN: No abnormal dilation or deviation. No suspicious fluid levels. Moderate stool burden. CALCIFICATIONS: None suspicious. OTHER: Marked elevation of right hemidiaphragm, grossly stable. Mechanical fusion of thoracic and lumbar spine and sacroiliac joints. IMPRESSION: 1. No acute or suspicious findings. Moderate stool burden. Electronically authenticated by: ENRIQUE LOWE Date: 05/28/2023 00:42 Discharge Plan Discharge Chief Complaint: Abdominal Pain Clinical Impression: Constipation Patient Disposition: Home, Self-Care Prescriptions / Home Meds: No Action diazepam 5 mg tablet 5 mg PO Q8H PRN (Reason: anxiety) furosemide 40 mg tablet 40 mg PO DAILY gabapentin 800 mg tablet 800 mg PO TID oxybutynin chloride 15 mg tablet extended release 24hr 15 mg PO DAILY Effer-K 20 mEq tablet, effervescent 20 meq PO BID promethazine 12.5 mg tablet 12.5 mg PO TID PRN (Reason: nausea and vomiting) tizanidine 4 mg tablet 4 mg PO Q8H PRN (Reason: muscle spasticity) zolpidem 12.5 mg tablet,ext release multiphase 12.5 mg PO DAILY Rx Instructions: HS levofloxacin 750 mg tablet 750 mg PO DAILY 7 Days Qty: 7 0RF bupropion HCl 150 mg tablet extended release 24 hr 150 mg PO DAILY buprenorphine-naloxone 8-2 mg film 2.5 film sublingual Q24H cyclobenzaprine 10 mg tablet 10 mg PO Q8H Instructions: Constipation (ED) Additional Instructions: follow up with Dr Obrien next week Stand Alone Forms: Portal Instructions Referrals: Shaikh Obrien MD [Primary Care Provider] - 1 week
== END 2023-05-28 01:51 | disposition home or self-care (01) ==
PROVIDERS: Emergency Provider Internal Medicine; PCP Internal Medicine
DX: K59.00 Constipation, unspecified (principal); Z79.899 Other long term (current) drug therapy; F17.210 Nicotine dependence, cigarettes, uncomplicated
CPT/HCPCS: 74019; 99283

== ENCOUNTER 2023-06-02 07:08 | Emergency (ER) | payer BC, SELFPAY ==
[2023-06-02 07:09] VITALS: BP 154/81; PULSE 82; RESP 16; TEMP 36.9; O2SAT 99; BMI 35.7
--- NOTE | 2023-06-02 07:24 | ED_ITS ---
HPI - Female Genitourinary General Chief complaint: Urogenital-Female Stated complaint: CATHETER FELL OUT Time Seen by Provider: 06/02/23 07:13 Source: patient Mode of arrival: ambulance Limitations: physical limitation History of Present Illness HPI Narrative: 48-year-old female presents because her Alvares catheter fell out. She has chronic indwelling Alvares catheter and this occurred just before coming into the [facility] merg[facility]. The balloon was still inflated and she didn't have any bleeding. She doesn't have much sensation in the perineum because of previous back surgery. No fever or vomiting. Related Data Home Medications Medication Instructions Recorded Confirmed buprenorphine 8 mg-naloxone 2 mg 2.5 film sublingual Q24H 03/01/23 03/30/23 sublingual film bupropion HCl 150 mg 24 hr tablet, 150 mg PO DAILY 03/01/23 03/30/23 extended release cyclobenzaprine 10 mg tablet 10 mg PO Q8H 03/01/23 03/01/23 diazepam 5 mg tablet 5 mg PO Q8H PRN anxiety 03/30/23 03/30/23 furosemide 40 mg tablet 40 mg PO DAILY 03/30/23 03/30/23 gabapentin 800 mg tablet 800 mg PO TID 03/30/23 03/30/23 oxybutynin chloride 15 mg 15 mg PO DAILY 03/30/23 03/30/23 tablet,extended release 24 hr potassium bicarbonate-citric acid 20 meq PO BID 03/30/23 03/30/23 20 mEq effervescent tablet (Effer-K) promethazine 12.5 mg tablet 12.5 mg PO TID PRN nausea and 03/30/23 03/30/23 vomiting tizanidine 4 mg tablet 4 mg PO Q8H PRN muscle spasticity 03/30/23 03/30/23 zolpidem 12.5 mg tablet,extended 12.5 mg PO DAILY 03/30/23 03/30/23 release,multiphase Previous Rx's Medication Instructions Recorded levofloxacin 750 mg tablet 750 mg PO DAILY 7 days #7 tabs 03/30/23 Allergies Allergy/AdvReac Type Severity Reaction Status Date / Time codeine Allergy Severe Verified 05/02/23 09:16 Penicillins Allergy Severe Anaphylaxis Verified 05/02/23 09:16 quetiapine [From Seroquel] Allergy Severe Seizure Verified 05/02/23 09:16 Review of Systems ROS Narrative A ten point review of systems is negative except as noted above. PFSH PFSH Social History Smoking status: Current every day smoker Exam Narrative Exam Narrative: Nurses note and vital signs reviewed and patient is not hypoxic. General: The patient appears well and in no apparent distress. Patient is resting comfortably on cart. Skin: Warm, dry, no pallor noted. There is no rash noted. Head: Normocephalic, atraumatic Eye: Normal conjunctiva, no drainage Ears, Nose, Mouth, and Throat: oral mucosa is moist. Nares patent. Cardiovascular: Regular Rate and Rhythm Respiratory: Patient is in no distress, no accessory muscle use Back: non-tender, no CVA tenderness bilaterally to percussion. GI: soft and nontender Musculoskeletal: The patient has no evidence of calf tenderness, no pitting edema, symmetrical pulses noted bilaterally Neurological: A&O, normal speech Psychiatric: Cooperative Constitutional Vital Signs, click to edit/add: Last Vital Signs Temp 98.4 F 06/02/23 07:09 Pulse 82 06/02/23 07:09 Resp 16 06/02/23 07:09 BP 154/81 H 06/02/23 07:09 Pulse Ox 99 06/02/23 07:09 O2 Del Method Room Air 06/02/23 07:09 Course Vital Signs Vital signs: Vital Signs Temperature 98.4 F 06/02/23 07:09 Pulse Rate 82 06/02/23 07:09 Respiratory Rate 16 06/02/23 07:09 Blood Pressure 154/81 H 06/02/23 07:09 Pulse Oximetry 99 06/02/23 07:09 Oxygen Delivery Method Room Air 06/02/23 07:09 Temperature 98.4 F 06/02/23 07:09 Pulse Rate 82 06/02/23 07:09 Respiratory Rate 16 06/02/23 07:09 Blood Pressure 154/81 H 06/02/23 07:09 Pulse Oximetry 99 06/02/23 07:09 Oxygen Delivery Method Room Air 06/02/23 07:09 MDM - Female Genitourinary MDM Narrative Medical decision making narrative: a new Alvares catheter is ordered and she'll be discharged. Discharge Plan Discharge Chief Complaint: Urogenital-Female Clinical Impression: Alvares catheter problem Patient Disposition: Home, Self-Care Time of Disposition Decision: 07:22 Condition: Good Mode of Transportation: Private Vehicle Prescriptions / Home Meds: No Action diazepam 5 mg tablet 5 mg PO Q8H PRN (Reason: anxiety) furosemide 40 mg tablet 40 mg PO DAILY gabapentin 800 mg tablet 800 mg PO TID oxybutynin chloride 15 mg tablet extended release 24hr 15 mg PO DAILY Effer-K 20 mEq tablet, effervescent 20 meq PO BID promethazine 12.5 mg tablet 12.5 mg PO TID PRN (Reason: nausea and vomiting) tizanidine 4 mg tablet 4 mg PO Q8H PRN (Reason: muscle spasticity) zolpidem 12.5 mg tablet,ext release multiphase 12.5 mg PO DAILY Rx Instructions: HS levofloxacin 750 mg tablet 750 mg PO DAILY 7 Days Qty: 7 0RF bupropion HCl 150 mg tablet extended release 24 hr 150 mg PO DAILY buprenorphine-naloxone 8-2 mg film 2.5 film sublingual Q24H cyclobenzaprine 10 mg tablet 10 mg PO Q8H Instructions: Alvares Catheter Placement and Care (ED), How to Change a Catheter Drainage Bag (DC) Stand Alone Forms: Portal Instructions Referrals: Shaikh Obrien MD [Primary Care Provider] - 1 week
--- NOTE | 2023-06-02 08:01 | PC.NURSE ---
pt states she got up to use restroom and catheter fell out. placed an 18fr aden at this time with 5ml of water in balloon. leg strap placed and linens changed.
== END 2023-06-02 08:20 | disposition home or self-care (01) ==
PROVIDERS: Emergency Provider Emergency Medicine; PCP Internal Medicine
DX: Z46.6 Encounter for fitting and adjustment of urinary device (principal); F17.210 Nicotine dependence, cigarettes, uncomplicated; Z79.899 Other long term (current) drug therapy
CPT/HCPCS: 99284

== ENCOUNTER 2023-06-08 03:23 | Emergency (ER) | payer BC, SELFPAY ==
[2023-06-08 03:27] VITALS: BP 152/89; PULSE 85; RESP 18; TEMP 36.9; O2SAT 96; BMI 37.4
--- NOTE | 2023-06-08 03:35 | CT_ITS ---
The [address] [address] Patient Name: MORALES LEE MRN: [id number] date: 1975 Sex: F Assigned Patient Location: ER Current Patient Location: ER Accession/Order Number: [id number] Exam Date: 06/08/2023 04:13 Report Date: 06/08/2023 05:10 At the request of: ROSANA COLUNGA Procedure: CT thoracic spine wo con EXAM: CT lumbar spine wo con, CT thoracic spine wo con, CT cervical spine wo con HISTORY: back pain COMPARISON: CT cervical spine 02/13/2019 CT abdomen pelvis 05/07/2022. TECHNIQUE: CT of the thoracic lumbar spine was acquired without IV contrast and submitted for interpretation. FINDINGS: Cervical spine: Mild straightening of the normal cervical lordotic curvature. Vertebral body heights are preserved. Postsurgical changes visualized secondary to ACDF at the C6-C7 level with solid osseous fusion along the disc spaces. Hardware appears intact without evidence for fracture or loosening. 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 The odontoid process is intact. No acute fractures are visualized. Posterior elements are intact. Prevertebral soft tissues appear unremarkable. Cervical spine alignment is maintained without significant spondylolisthesis. No CT evidence to suggest high-grade central canal narrowing within the cervical spine. Imaged lung ma are clear of consolidation/infiltrate. Thoracic spine: Extensive fusion hardware spanning the T5 level through the lumbosacral region. Hardware appears intact without evidence for fracture or loosening. Mild chronic appearing compression deformities of the T4, T5 and T6 superior endplates. The remainder of the vertebral body heights are preserved. No acute fractures are visualized. Posterior elements are intact. The thoracic spine alignment is maintained without significant spondylolisthesis. Multilevel degenerative disc disease visualized. Postsurgical changes visualized secondary to prior cholecystectomy. Lumbar spine: Extensive fusion hardware visualized throughout the lower thoracic and lumbosacral spine. The hardware appears intact without evidence for fracture or loosening. There is stable appearance of the multilevel chronic compression deformities visualized at the L1, L2, L3, L4 and L5 superior endplates. Mild compression deformity along the inferior endplate of T11. No acute fractures visualized. Lumbar spine alignment is maintained without significant spondylolisthesis. Slightly osteopenic bone density is visualized. Evaluation of the central canal is limited due to streak artifact from extensive hardware. CT/CT thoracic spine wo con IMPRESSION: 1. No acute fracture or traumatic malalignment of the cervical, thoracic and lumbar spine. 2. ACDF at the C6-C7 level without evidence for hardware complication. Extensive thoracolumbosacral fusion hardware spanning the T5-S1 levels without evidence for hardware complication. 3. Stable multilevel chronic compression deformities of the thoracic and lumbar spine. Electronically authenticated by: MADAN SAWYER Date: 06/08/2023 05:10
--- NOTE | 2023-06-08 03:35 | CT_ITS ---
The [address] [address] Patient Name: MORALES LEE MRN: [id number] date: 1975 Sex: F Assigned Patient Location: ER Current Patient Location: ER Accession/Order Number: [id number] Exam Date: 06/08/2023 04:13 Report Date: 06/08/2023 05:10 At the request of: ROSANA COLUNGA Procedure: CT lumbar spine wo con EXAM: CT lumbar spine wo con, CT thoracic spine wo con, CT cervical spine wo con HISTORY: back pain COMPARISON: CT cervical spine 02/13/2019 CT abdomen pelvis 05/07/2022. TECHNIQUE: CT of the thoracic lumbar spine was acquired without IV contrast and submitted for interpretation. FINDINGS: Cervical spine: Mild straightening of the normal cervical lordotic curvature. Vertebral body heights are preserved. Postsurgical changes visualized secondary to ACDF at the C6-C7 level with solid osseous fusion along the disc spaces. Hardware appears intact without evidence for fracture or loosening. 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 The odontoid process is intact. No acute fractures are visualized. Posterior elements are intact. Prevertebral soft tissues appear unremarkable. Cervical spine alignment is maintained without significant spondylolisthesis. No CT evidence to suggest high-grade central canal narrowing within the cervical spine. Imaged lung ma are clear of consolidation/infiltrate. Thoracic spine: Extensive fusion hardware spanning the T5 level through the lumbosacral region. Hardware appears intact without evidence for fracture or loosening. Mild chronic appearing compression deformities of the T4, T5 and T6 superior endplates. The remainder of the vertebral body heights are preserved. No acute fractures are visualized. Posterior elements are intact. The thoracic spine alignment is maintained without significant spondylolisthesis. Multilevel degenerative disc disease visualized. Postsurgical changes visualized secondary to prior cholecystectomy. Lumbar spine: Extensive fusion hardware visualized throughout the lower thoracic and lumbosacral spine. The hardware appears intact without evidence for fracture or loosening. There is stable appearance of the multilevel chronic compression deformities visualized at the L1, L2, L3, L4 and L5 superior endplates. Mild compression deformity along the inferior endplate of T11. No acute fractures visualized. Lumbar spine alignment is maintained without significant spondylolisthesis. Slightly osteopenic bone density is visualized. Evaluation of the central canal is limited due to streak artifact from extensive hardware. CT/CT lumbar spine wo con IMPRESSION: 1. No acute fracture or traumatic malalignment of the cervical, thoracic and lumbar spine. 2. ACDF at the C6-C7 level without evidence for hardware complication. Extensive thoracolumbosacral fusion hardware spanning the T5-S1 levels without evidence for hardware complication. 3. Stable multilevel chronic compression deformities of the thoracic and lumbar spine. Electronically authenticated by: MADAN SAWYER Date: 06/08/2023 05:10
--- NOTE | 2023-06-08 03:36 | CT_ITS ---
The [address] [address] Patient Name: MORALES LEE MRN: [id number] date: 1975 Sex: F Assigned Patient Location: ER Current Patient Location: ER Accession/Order Number: [id number] Exam Date: 06/08/2023 04:13 Report Date: 06/08/2023 05:10 At the request of: ROSANA COLUNGA Procedure: CT cervical spine wo con EXAM: CT lumbar spine wo con, CT thoracic spine wo con, CT cervical spine wo con HISTORY: back pain COMPARISON: CT cervical spine 02/13/2019 CT abdomen pelvis 05/07/2022. TECHNIQUE: CT of the thoracic lumbar spine was acquired without IV contrast and submitted for interpretation. FINDINGS: Cervical spine: Mild straightening of the normal cervical lordotic curvature. Vertebral body heights are preserved. Postsurgical changes visualized secondary to ACDF at the C6-C7 level with solid osseous fusion along the disc spaces. Hardware appears intact without evidence for fracture or loosening. 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 The odontoid process is intact. No acute fractures are visualized. Posterior elements are intact. Prevertebral soft tissues appear unremarkable. Cervical spine alignment is maintained without significant spondylolisthesis. No CT evidence to suggest high-grade central canal narrowing within the cervical spine. Imaged lung ma are clear of consolidation/infiltrate. Thoracic spine: Extensive fusion hardware spanning the T5 level through the lumbosacral region. Hardware appears intact without evidence for fracture or loosening. Mild chronic appearing compression deformities of the T4, T5 and T6 superior endplates. The remainder of the vertebral body heights are preserved. No acute fractures are visualized. Posterior elements are intact. The thoracic spine alignment is maintained without significant spondylolisthesis. Multilevel degenerative disc disease visualized. Postsurgical changes visualized secondary to prior cholecystectomy. Lumbar spine: Extensive fusion hardware visualized throughout the lower thoracic and lumbosacral spine. The hardware appears intact without evidence for fracture or loosening. There is stable appearance of the multilevel chronic compression deformities visualized at the L1, L2, L3, L4 and L5 superior endplates. Mild compression deformity along the inferior endplate of T11. No acute fractures visualized. Lumbar spine alignment is maintained without significant spondylolisthesis. Slightly osteopenic bone density is visualized. Evaluation of the central canal is limited due to streak artifact from extensive hardware. CT/CT cervical spine wo con IMPRESSION: 1. No acute fracture or traumatic malalignment of the cervical, thoracic and lumbar spine. 2. ACDF at the C6-C7 level without evidence for hardware complication. Extensive thoracolumbosacral fusion hardware spanning the T5-S1 levels without evidence for hardware complication. 3. Stable multilevel chronic compression deformities of the thoracic and lumbar spine. Electronically authenticated by: MADAN SAWYER Date: 06/08/2023 05:10
[2023-06-08] MEDS: ORPHENADRINE 60 MG/ 2 ML VIAL IM (03:52)
[2023-06-08] MEDS: KETOROLAC TROMETHAMINE 30 MG/ML VIAL IM (03:52)
--- NOTE | 2023-06-08 04:00 | PC.NURSE ---
Pt presents to ER via EMS for lower back pain Pt states she had a fall last week and has since been in a lot of pain Pt has chronic back pain and a chronic indwelling aden
--- NOTE | 2023-06-08 04:06 | ED.BACK1 ---
HPI - Back Pain/Injury General Chief Complaint: Back Pain/Injury Stated Complaint: BACK PAIN/FALL Time Seen by Provider: 06/08/23 03:27 Mode of arrival: ambulance Limitations: physical limitation History of Present Illness HPI Narrative: 48-year-old female well-known to this department with chronic back pain presents to the emergency department with chief complaint of back pain after a fall. She reports that she fell sometime a little over a week ago. She cannot recall the details of the fall. She has had pain in her upper and lower back ever since. She saw her primary care physician for this and was told to come to the emergency department if he gets any worse. Patient reports that the pain worsened tonight prompting her visit. She has baseline incontinence for which she has a Alvares catheter and baseline weakness and numbness in the lower extremities. These chronic deficits are from a surgery she reports she had in the past. She denies head injury. Patient reports that she is on Suboxone and used to have a little bit of a problem . Patient reports she didn't want to come to the emergency department tonight because I know how people treat me here . Related Data Home Medications Medication Instructions Recorded Confirmed buprenorphine 8 mg-naloxone 2 mg 2.5 film sublingual Q24H 03/01/23 03/30/23 sublingual film bupropion HCl 150 mg 24 hr tablet, 150 mg PO DAILY 03/01/23 03/30/23 extended release cyclobenzaprine 10 mg tablet 10 mg PO Q8H 03/01/23 03/01/23 diazepam 5 mg tablet 5 mg PO Q8H PRN anxiety 03/30/23 03/30/23 furosemide 40 mg tablet 40 mg PO DAILY 03/30/23 03/30/23 gabapentin 800 mg tablet 800 mg PO TID 03/30/23 03/30/23 oxybutynin chloride 15 mg 15 mg PO DAILY 03/30/23 03/30/23 tablet,extended release 24 hr potassium bicarbonate-citric acid 20 meq PO BID 03/30/23 03/30/23 20 mEq effervescent tablet (Effer-K) promethazine 12.5 mg tablet 12.5 mg PO TID PRN nausea and 03/30/23 03/30/23 vomiting tizanidine 4 mg tablet 4 mg PO Q8H PRN muscle spasticity 03/30/23 03/30/23 zolpidem 12.5 mg tablet,extended 12.5 mg PO DAILY 03/30/23 03/30/23 release,multiphase Previous Rx's Medication Instructions Recorded levofloxacin 750 mg tablet 750 mg PO DAILY 7 days #7 tabs 03/30/23 Allergies Allergy/AdvReac Type Severity Reaction Status Date / Time codeine Allergy Severe Verified 05/02/23 09:16 Penicillins Allergy Severe Anaphylaxis Verified 05/02/23 09:16 quetiapine [From Seroquel] Allergy Severe Seizure Verified 05/02/23 09:16 Review of Systems ROS Status of ROS 10 or more systems reviewed and unremarkable except as noted in history and below [facility] Social History Smoking status: Current some day smoker Exam Narrative Exam Narrative: VITALS: I have reviewed the triage vital signs. GENERAL: Unkempt-appearing adult female in no distress, emotionally labile. NEURO: Alert and oriented x3. Moves all extremities. Face is symmetric and expressive. 4/5 strength with hip flex/ext, knee flex/ext, plantar flexion/ dorsiflexion blt. Sensation is intact blt. EYES: PERRL. No scleral icterus or conjunctival injection. No discharge. HENT: Normocephalic, atraumatic. Hearing is grossly intact. Nares grossly patent and without discharge. Mucous membranes moist. NECK: No JVD. No midline cervical tenderness. Patient moves neck without restriction. CARDIO: Rhythm regular. Normal rate. No murmur, rub, or gallop. Pulses equal bilaterally in the upper and lower extremity. No lower extremity edema. PULM: Lungs clear to auscultation in all ma. No wheezes, rales, or rhonchi. No conversational dyspnea. No splinting, stridor, or accessory muscle use. GI/: Abdomen is soft and non-tender. Normoactive bowel sounds. Alvares cath in place. EXTREMITIES: Symmetric muscle bulk. No joint swelling. No clubbing, cyanosis, or deformity. SKIN: Warm and dry. Normal turgor. No rash or lesions appreciated. PSYCH: Emotionally labile, hostile. Constitutional Vital Signs, click to edit/add: Last Vital Signs Temp 98.5 F 06/08/23 03:27 Pulse 85 06/08/23 03:27 Resp 18 06/08/23 03:27 BP 152/89 H 06/08/23 03:27 Pulse Ox 96 06/08/23 03:27 O2 Del Method Room Air 06/08/23 03:27 Course Vital Signs Vital signs: Vital Signs Temperature 98.5 F 06/08/23 03:27 Pulse Rate 85 06/08/23 03:27 Respiratory Rate 18 06/08/23 03:27 Blood Pressure 152/89 H 06/08/23 03:27 Pulse Oximetry 96 06/08/23 03:27 Oxygen Delivery Method Room Air 06/08/23 03:27 Temperature 98.5 F 06/08/23 03:27 Pulse Rate 85 06/08/23 03:27 Respiratory Rate 18 06/08/23 03:27 Blood Pressure 152/89 H 06/08/23 03:27 Pulse Oximetry 96 06/08/23 03:27 Oxygen Delivery Method Room Air 06/08/23 03:27 MDM - Back Pain/Injury MDM Narrative Medical decision making narrative: 48-year-old female with chronic back pain well-known to this emergency Department to the emergency department with chief complaint back pain after a fall. Vital stable, the patient is afebrile. Her neurologic examination is at her stated baseline. CT head is cleared clinically. We'll obtain CT cervical, thoracic, lumbar spine given her continued pain. Norflex and Toradol ordered for her discomfort. Patient expressed dissatisfaction with my choice in medications for symptomatic relief. She did state to me that she has a history of narcotic abuse I do not believe that is appropriate to initiate narcotic therapy in this patient unless we find significant injury. CT imaging without acute findings. Patient appears to be at her baseline. She is well known to nursing staff who report this is her baseline. Discussed normal imaging with patient. I offered muscle relaxers, naproxen, Lidoderm patch. Patch declines stating those things don't work for her pain. Patient made several appeals to me to prescribe narcotic pain medications. I do not believe this is indicated for her chronic pain nor do I feel comfortable given her history of abuse. I discussed this with the patient and she was not pleased. She is persistent and manipulative. She did exhibit drug seeking behavior during today's encounter. Patient is referred back to her PCP and surgeon. Return precautions were discussed. Patient was discharged home. Medical Records Attestation: I reviewed the patient's medical records. Discharge Plan Discharge Chief Complaint: Back Pain/Injury Clinical Impression: Chronic back pain, Accidental fall, Drug-seeking behavior Patient Disposition: Home, Self-Care Time of Disposition Decision: 05:23 Condition: Good Mode of Transportation: Private Vehicle Prescriptions / Home Meds: No Action diazepam 5 mg tablet 5 mg PO Q8H PRN (Reason: anxiety) furosemide 40 mg tablet 40 mg PO DAILY gabapentin 800 mg tablet 800 mg PO TID oxybutynin chloride 15 mg tablet extended release 24hr 15 mg PO DAILY Effer-K 20 mEq tablet, effervescent 20 meq PO BID promethazine 12.5 mg tablet 12.5 mg PO TID PRN (Reason: nausea and vomiting) tizanidine 4 mg tablet 4 mg PO Q8H PRN (Reason: muscle spasticity) zolpidem 12.5 mg tablet,ext release multiphase 12.5 mg PO DAILY Rx Instructions: HS levofloxacin 750 mg tablet 750 mg PO DAILY 7 Days Qty: 7 0RF bupropion HCl 150 mg tablet extended release 24 hr 150 mg PO DAILY buprenorphine-naloxone 8-2 mg film 2.5 film sublingual Q24H cyclobenzaprine 10 mg tablet 10 mg PO Q8H Print Language: Yoruba Instructions: Chronic Back Pain (DC), Non-pharmacological Pain Management Therapies for Adults (ED) Stand Alone Forms: Portal Instructions Referrals: Shaikh Obrien MD [Primary Care Provider] - 1 week (Follows next week. Return to the Emergency Department with worsening of this. He should also call the office of her spine surgeon to discuss your pain. )
== END 2023-06-08 05:59 | disposition home or self-care (01) ==
PROVIDERS: Emergency Provider Student in an Organized Health Care Education/Training Program; PCP Internal Medicine
DX: M54.9 Dorsalgia, unspecified (principal); Z79.899 Other long term (current) drug therapy; F11.20 Opioid dependence, uncomplicated; F17.210 Nicotine dependence, cigarettes, uncomplicated; G89.29 Other chronic pain; Z76.5 Malingerer [conscious simulation]; S39.92XA Unspecified injury of lower back, initial encounter; W19.XXXA Unspecified fall, initial encounter; S29.9XXA Unspecified injury of thorax, initial encounter
CPT/HCPCS: 72125; 72128; 72131; 96372; 99285

== ENCOUNTER 2023-08-03 16:50 | Outpatient (REF) | payer BC, SELFPAY | END 2023-08-03 16:51 | disposition home or self-care (01) | LOC: LAB 16:50 | PROVIDERS: PCP Internal Medicine | DX: R32 Unspecified urinary incontinence (principal); R15.9 Full incontinence of feces | CPT/HCPCS: 87086; 87150; 87186 ==

== ENCOUNTER 2023-08-27 16:12 | Emergency (ER) | payer BC, SELFPAY ==
[2023-08-27 16:18] VITALS: PULSE 80; RESP 18; TEMP 36.6; O2SAT 95
--- OUTSIDE RECORDS SUMMARY | 2023-08-27 16:23 | XMS_ITS | CCD ---
Author Name Unknown Address [address] [place] [address] Organization [facility] Care Team Providers Care Corner Bead Operator Name Role Phone Required, No Pcp Unavailable Unavailable Lex Frederick Unavailable None, No PCP Unavailable Unavailable Unavailable Unavailable SHAIKH STEWARD Primary Care Physician Yony Aguirre Unavailable Unavailable Neurosurgery Unavailable Unavailable Dr. LEX FREDERICK Admitting Unava ilable Dr. LEX FREDERICK Attending Unava ilable Patient, Unavailable Referring Unavailable Dr. Yony Aguirre Attending Unavailable [facility]END[facility]A H Primary Care Unavailable PÉREZ PATINO Attending Unavailable PÉREZ PATINO Admitting Unavailable DR ABHINAV WEBB Attending Unavailabl e BIN, MENDOSA H Primary Care Unavailable DR ABHINAV WEBB Admitting UnavailDR ABHINAV Kc Consulting UnavailDR CLIF Cotton Admitting Unavailable DR CLIF HUTTON Consulting Unavailable [facility] Primary Care Unavailable DR CLIF HUTTON Attending Unavailable IVON AMARO Admitting Unavailable IVON AMARO Consulting Unavailable FAWWAD, MENDOSA H Primary Care Unavailable IVON AMARO Attending Unavailable LALI BENITEZ Admitting Unavailable LALI BENITEZ Consulting Unavailable FAWWAD, MENDOSA H Primary Care Unavailable LALI BENITEZ Attending Unavailable FAWWAD, MENDOSA H Primary Care Unavailable DANYA JENKINS Admitting Unavailable DANYA JENKINS Attending Unavailable FAWWAD, MENDOSA H Primary Care Unavailable LUE ., DANYA M Admitting Unavailable LUE ., DANYA M Consulting Unavailable LUE ., DANYA M Attending Unavailable REINECK, DR ABHINAV Livingston Attending Unavailabl e FA[facility], [facility] Primary Care Unavailable REINECK, DR ABHINAV Livingston Admitting Unavailabl e REINECK, DR ABHINAV Livingston Consulting Unavailabl e VETO ., IVON Admitting Unavailable VETO ., IVON Attending Unavailable [facility] Primary Care Unavailable DEBORAH NGUYEN Consulting Unavailable [facility] Primary Care Unavailable REINECK, DR ABHINAV Livingston Admitting Unavailabl e REINECK, DR ABHINAV Livingston Consulting Unavailabl e REINECK, DR ABHINAV Livingston Attending Unavailabl e HAY ., DR LOW Admitting Unavailable [facility] Primary Care Unavailable HAY ., DR LOW Attending Unavailable ZIEBER, DR ENRIQUE Santana Consulting Unavailable HAY ., DR LOW Consulting Unavailable LUE ., DANYA M Admitting Unavailable LUE ., DANYA M Attending Unavailable [facility] Primary Care Unavailable [facility] Primary Care Unavailable LUE ., DANYA M Admitting Unavailable LUE ., DANYA M Consulting Unavailable LUE ., DANYA M Attending Unavailable CANDICE MATTA Consulting Unava RACHEL Oconnor Consulting Unavailable DIAB ., KYRA Admitting Unavailable [facility] Primary Care Unavailable DIAB ., KYRA Attending Unavailable GRECHNY .BONITA Consulting Unavailabl e [facility] Primary Care Unavailable LUE ., DANYA M Admitting Unavailable LUE ., DANYA M Consulting Unavailable LUE ., DANYA M Attending Unavailable PAY ., DR RODRIGUEZ Admitting Unavailable PAY ., DR RODRIGUEZ Consulting Unavailable [facility] Primary Care Unavailable PAY ., DR RODRIGUEZ Attending Unavailable [facility] Primary Care Unavailable REINECK, DR ABHINAV Livingston Admitting Unavailabl e REINECK, DR ABHINAV Livingston Consulting Unavailabl e REINECK, DR ABHINAV Livingston Attending Unavailabl e KORIN STANLEY Consulting Unavailable [facility] Primary Care Unavailable Lue, Danya M. Attending Unavailable [facility] Primary Care Unavailable Lue, Danya M. Attending Unavailable FAWWAD, MENDOSA Primary Care Unavailable Lue, Danya M. Attending Unavailable [facility] Unavailable Danya Bingham Attending Unavailable [facility] Unavailable Danya Bingham Attending Unavailable [facility] Unavailable Danya Bingham Attending Unavailable [facility] Unavailable Danya Bingham Attending Unavailable Young [place]argrove Attending Unavailable [facility] Unavailable Dr. Lex Frederick Attending Unava ilable Allergies Allergy Classification Reported Allergen(s) Allergy Type Date of Onset Reaction(s) Facility Opioid Agonists (1 source) Codeine Drug Allergy Unknown [facility] Penicillins (antibiotic) (1 source) Penicillin Drug Allergy Unknown [facility] QUEtiapine (1 source) QUEtiapine Drug Allergy Unknown [facility] (20 sources) Codeine; Translations: [Codeine] Drug Allergy Hives, Unknown [facility] Work Phone: (20 sources) Penicillins; Translations: [Penicillins] Allergy to drug (finding) Hives, Unknown [facility] Work Phone: (8 sources) Promethazine; Translations: [promethazine] Drug Allergy [facility] (1 source) QUEtiapine Drug Allergy Seizures [facility] (2 sources) Codeine Drug Allergy 3 [facility] (3 sources) gabapentin; Translations: [Neurontin] Drug Allergy [facility] (1 source) Levamisole Drug Allergy [facility] (1 source) Morphine Drug Allergy 0 [facility] (2 sources) Penicillins Drug allergy (disorder) 3 [facility] (1 source) QUEtiapine Drug Allergy 3 [facility] Medications Current Medications Medication Drug Class(es) Dates Sig (Normalized) Sig (Original) acetaminophen 325 mg oral tablet (2 sources) Start: 01-01-2021 take 2 tablets by mouth every six hours acetaminophen 325 mg oral tablet ; 2 tab(s) orally every 6 hours, as needed while having post operative pain Quantity: 0 Refills: 0 Ordered: 01-Jan-2021 Ambrocio Izaguirre Start: 01-Jan-2021 Generic Substitution Allowed Ankle Foot Orthosis (1 source) Start: 09-23-2021 Ankle Foot Orthosis ; for foot drop Quantity: 2 Refills: 0 Ordered: 23-Sep-2021 Fidel Maciel Start: 23-Sep-2021 Status: Discontinued Generic Substitution Allowed Bilateral Prafos (1 source) Start: 09-24-2021 Bilateral Prafos ; - orthotics to fit- ICD 10: R26.0, M21.37, M62.81 Quantity: 1 Refills: 0 Ordered: 24-Sep-2021 Ambrocio Izaguirre Start: 24-Sep-2021 Generic Substitution Allowed calcium carbonate 1250 mg / cholecalciferol 200 unt oral tablet (2 sources) Vitamin D Start: 01-01-2021 take 1 tablet by mouth four times daily calcium-vitamin D 500 mg-200 intl units (5 mcg) oral tablet ; 1 tab(s) orally 4 times a day Quantity: 120 Refills: 0 Ordered: 01-Jan-2021 Ambrocio Izaguirre Start: 01-Jan-2021 Status: Discontinued Generic Substitution Allowed cephalexin 500 mg oral capsule (2 sources) Cephalosporin Antibacterial Start: 07-16-2022 take 1 capsule by mouth every twelve hours Keflex 500 mg Cap 500 mg = 1 cap(s), Oral, q12hr, # 2 cap(s), Refills(s) 0, [facility]acy: [facility][id number], 156, cm, 07/16/22 10:58:00 EST, Height/Length Dosing, 78, kg, 07/16/22 10:58:00 EST, Weight Dosing Start Date: 07/16/22 Status: Ordered ciprofloxacin 500 mg oral tablet (1 source) Quinolone Antimicrobial Start: 01-06-2022 End: 01-08-2022 take 1 tablet by mouth once daily Cipro 500 mg Tab 500 mg = 1 tab(s), Oral, Daily, Take 1 tab day prior to Cysto and 1 tab after Cysto completed, X 2 day(s), # 2 tab(s), Refills(s) 0, Pharmacy: [facility] [id number] [facility], 156, cm, 01/06/22 10:53:00 EDT, Height/Length Dosing, 78, kg, 01/06/22 10:53:00 EDT... Start Date: 01/06/22 Stop Date: 01/08/22 Status: Ordered diazePAM 5 mg oral tablet (20 sources) Benzodiazepine Start: 09-30-2021 take 1 tablet by mouth every eight hours as needed diazePAM 5 mg oral tablet ; 1 tab(s) orally every 8 hours, As needed, Anxiety Quantity: 0 Refills: 0 Ordered: 30-Sep-2021 Concetta Shi Start: 30-Sep-2021 Status: Discontinued Generic Substitution Allowed Start: 10-28-2020 Valium 10 MG O ral Tablet Quantity: 0 Refills: 0 Ordered: 28-Oct-2020 DO Start : 28-Oct-2020 Active Start: 01-05-2016 take 1 tablet by marlen th three times daily as needed for anxiety Valium 2 mg Tab 2 mg = 1 tab(s), Oral, TID, PRN for anxiety, Refills(s) 0 Start Date: 01/05/16 Status: Ordered Valium 10 mg ora l tablet ; 1 tab(s) oral Quantity: 0 Refills: 0 Ordered: 05-Dec-2020 Carole Mcdaniel Status: Discontinued Generic Substitution Allowed Valium ; 1 tab(s ) oral Quantity: 0 Refills: 0 Ordered: 05-Dec-2020 Carole Mcdaniel Status: Discontinued Generic Substitution Allowed diclofenac sodium 50 mg delayed release oral tablet (16 sources) Nonsteroidal Anti-inflammatory Drug Start: 01-01-2021 diclofenac sodium 50 mg oral delayed release tablet ; 1 tab(s) orally 3 times a day-DO NOT RESTART THIS MEDICATION UNTIL CLEARED BY DR. FREDERICK Quantity: 0 Refills: 0 Ordered: 01-Jan-2021 Ambrocio Izaguirre Start: 01-Jan-2021 Generic Substitution Allowed Start: 10-28-2020 Voltaren 1 % G EL Quantity: 0 Refills: 0 Ordered: 28-Oct-2020 DO Start : 28-Oct-2020 Active diclofenac topic al 1% topical gel ; 1 milena topical prn Quantity: 0 Refills: 0 Ordered: 12-Dec-2020 Carole Mcdaniel Status: Discontinued Generic Substitution Allowed Voltaren ; 1 tab (s) oral Quantity: 0 Refills: 0 Ordered: 05-Dec-2020 Carole Mcdaniel Status: Discontinued Generic Substitution Allowed docusate sodium 50 mg / sennosides, alf 8.6 mg oral tablet (2 sources) Start: 01-01-2021 take 2 tablets by mouth twice daily for pain sennosides-docusate 8.6 mg-50 mg oral tablet ; 2 tab(s) orally 2 times a day -Take while using oxycodone for post operative pain to prevent contipation Quantity: 30 Refills: 0 Ordered: 01-Jan-2021 Ambrocio Izaguirre Start: 01-Jan-2021 Generic Substitution Allowed Comments: Medication should be taken with plenty of water. Comment on above: Medication should be taken with plenty o f water. DULoxetine 30 mg delayed release oral capsule (2 sources) Serotonin and Norepinephrine Reuptake Inhibitor Start: 09-30-2021 take 1 capsule by mouth once daily DULoxetine 30 mg oral delayed release capsule ; 1 cap(s) orally once a day Quantity: 0 Refills: 0 Ordered: 30-Sep-2021 Concetta Shi Start: 30-Sep-2021 Status: Discontinued Generic Substitution Allowed furosemide 20 mg oral tablet (2 sources) Loop Diuretic take 2 tablets by mouth once daily as needed furosemide 20 mg oral tablet ; 2 tab(s) orally once a day, As Needed Quantity: 0 Refills: 0 Ordered: 15-Sep-2021 Enrique Egan Generic Substitution Allowed take 1 tablet by marlen once daily as needed furosemide 20 mg oral tablet ; 1 tab(s) orally once a day, As Needed Quantity: 0 Refills: 0 Ordered: 01-Jan-2021 Ambrocio Izaguirre Generic Substitution Allowed Geritol oral tablet (7 sources) Start: 10-30-2011 Geritol oral tablet 1 tab(s), Oral, Daily, 90 tab(s), Refill(s) 0 Start Date: 10/30/11 Status: Ordered hydroCHLOROthiazide 12.5 mg oral tablet (7 sources) Thiazide Diuretic Start: 01-05-2016 take 12.5 mg by mouth once daily hydrochlorothiazide 12.5 mg, Oral, Daily, Refills(s) 0 Start Date: 01/05/16 Status: Ordered LEFT AFO (1 source) Start: 09-23-2021 LEFT AFO ; -Orthotics to fitICD 10: M21.37 Quantity: 1 Refills: 0 Ordered: 23-Sep-2021 Ambrocio Izaguirre Start: 23-Sep-2021 Generic Substitution Allowed lidocaine 0.05 mg/mg medicated patch (15 sources) Antiarrhythmic, Amide Local Anesthetic Start: 01-01-2021 lidocaine 5% topical film ; Apply topically to affected area once a day, As Needed near surgical incision for incisional pain Quantity: 10 Refills: 0 Ordered: 01-Jan-2021 Ambrocio Izaguirre Start: 01-Jan-2021 Generic Substitution Allowed Start: 10-28-2020 Lipocaine 5 5 % External Cream Quantity: 0 Refills: 0 Ordered: 28-Oct-2020 DO Start : 28-Oct-2020 Active lidocaine cream ; 1 milena prn Quantity: 0 Refills: 0 Ordered: 05-Dec-2020 Carole Mcdaniel Status: Discontinued Generic Substitution Allowed 24 hr mirabegron 50 mg extended release oral tablet (4 sources) beta3-Adrenergic Agonist Start: 02-25-2022 take 1 tablet by mouth once daily mirabegron 50 mg oral tablet, extended release 50 mg = 1 tab(s), Oral, Daily, # 30 tab(s), Refills(s) 3, Pharmacy: [address], 156, cm, 02/04/22 15:47:00 EDT, Height/Length Dosing, 78, kg, 02/04/22 15:47:00 EDT, Weight Dosing Start Date: 02/25/22 Status: Ordered omeprazole 40 mg delayed release oral capsule (4 sources) Proton Pump Inhibitor Start: 01-06-2022 take 1 mg by mouth once daily omeprazole 40 mg Cap-DR mg cap(s), Oral, Daily, Refills(s) 0 Start Date: 01/06/22 Status: Ordered omeprazole 40 mg Cap-DR (3 sources) Start: 01-06-2022 take 1 mg by mouth once daily omeprazole 40 mg Cap-DR mg cap(s), Oral, Daily, Refills(s) 0 Start Date: 01/06/22 Status: Ordered 24 hr oxybutynin chloride 10 mg extended release oral tablet (4 sources) Cholinergic Muscarinic Antagonist Start: 10-04-2022 take 1 tablet by mouth once daily oxybutynin 10 mg ER Tab 10 mg = 1 tab(s), Oral, Daily, # 30 tab(s), Refills(s) 11, Pharmacy: [facility] #[id number], 156, cm, 07/16/22 10:58:00 EST, Height/Length Dosing, 78, kg, 07/16/22 10:58:00 EST, Weight Dosing Start Date: 10/04/22 Status: Ordered Start: 07-16-2022 take 1 tablet by marlen th once daily oxybutynin 10 mg ER Tab 10 mg = 1 tab(s), Oral, Daily, # 30 tab(s), Refills(s) 11, [facility]: [facility] #[id number], 156, cm, 07/16/22 10:58:00 EST, Height/Length Dosing, 78, kg, 07/16/22 10:58:00 EST, Weight Dosing Start Date: 07/16/22 Status: Ordered Start: 03-10-2022 take 1 tablet by marlen once daily oxybutynin 10 mg ER Tab 10 mg = 1 tab(s), Oral, Daily, # 30 tab(s), Refills(s) 3, [facility]: [facility] [facility], 156, cm, 02/04/22 15:47:00 EDT, Height/Length Dosing, 78, kg, 02/04/22 15:47:00 EDT, Weight Dosing Start Date: 03/10/22 Status: Ordered oxyCODONE hydrochloride 5 mg oral tablet (2 sources) Opioid Agonist Start: 01-01-2021 End: 01-07-2021 take 1 tablet by mouth every six hours as needed oxyCODONE 5 mg oral tablet ; 1 tab(s) orally every 6 hours, As Needed while having severe post operative painICD 10: G89.18PRN Reason: Pain - Mod (4-6) Quantity: 28 Refills: 0 Ordered: 01-Jan-2021 Ambrocio Izaguirre Start: 01-Jan-2021 End: 07-Jan-2021 Generic Substitution Allowed polyethylene glycol 3350 10088 mg powder for oral solution (2 sources) Osmotic Laxative Start: 09-30-2021 polyethylene glycol 3350 oral powder for reconstitution ; 17 gram(s) orally 3 times a day - available over the counter at any pharmacy Quantity: 0 Refills: 0 Ordered: 30-Sep-2021 Concetta Shi Start: 30-Sep-2021 Generic Substitution Allowed MiraLax oral pow marilu for reconstitution ; 1 orally once a day Quantity: 0 Refills: 0 Ordered: 15-Sep-2021 Enrique Egan Status: Discontinued Generic Substitution Allowed RIGHT AFO (1 source) Start: 09-23-2021 RIGHT AFO ; - Orthotics to fit- M21.37 Quantity: 1 Refills: 0 Ordered: 23-Sep-2021 Ambrocio Izaguirre Start: 23-Sep-2021 Generic Substitution Allowed tiZANidine 2 mg oral tablet (1 source) Central alpha-2 Adrenergic Agonist Start: 10-02-2021 take 1 tablet by mouth every eight hours tiZANidine 2 mg oral tablet ; 1 tab(s) orally every 8 hours, as needed for post operative muscle spasms Quantity: 30 Refills: 0 Ordered: 02-Oct-2021 Ambrocio Izaguirre Start: 02-Oct-2021 Generic Substitution Allowed 24 hr tolterodine tartrate 4 mg extended release oral capsule (1 source) Cholinergic Muscarinic Antagonist Start: 01-28-2022 take 1 capsule by mouth once daily tolterodine 4 mg Cap-ER 4 mg = 1 cap(s), Oral, Daily, # 30 cap(s), Refills(s) 0, Pharmacy: [address], 156, cm, 01/07/22 13:43:00 EDT, Height/Length Dosing, 78, kg, 01/06/22 10:53:00 EDT, Weight Dosing Start Date: 01/28/22 Status: Ordered zolpidem tartrate 10 mg oral tablet (20 sources) gamma-Aminobutyric Acid-ergic Agonist Start: 09-30-2021 take 1 tablet by mouth once at bedtime zolpidem 10 mg oral tablet ; 1 tab(s) orally once (at bedtime) Quantity: 0 Refills: 0 Ordered: 30-Sep-2021 Concetta Shi Start: 30-Sep-2021 Status: Discontinued Generic Substitution Allowed Start: 10-28-2020 Ambien CR 12.5 MG Oral Tablet Extended Release Quantity: 0 Refills: 0 Ordered: 28-Oct-2020 DO Start : 28-Oct-2020 Active Start: 01-05-2016 take 1 tablet by marlen th once daily at bedtime as needed for sleep Ambien CR 12.5 mg Tab-ER 12.5 mg = 1 tab(s), Oral, Once a day (at bedtime), PRN for sleep, Refills(s) 0 Start Date: 01/05/16 Status: Ordered Completed/Discontinued Medications Medication Drug Class(es) Dates Sig (Normalized) Sig (Original) betamethasone 1 mg/ml topical cream (13 sources) Corticosteroid Start: 10-28-2020 Betamethasone Valerate 0.1 % External Cream APPLY TO AFFECTED AREA TWICE DAILY NEEDED FOR ITCHING FOR NO MORETHAN 2 WEEKS CONSECUTIVELY Quantity: 1 Refills: 2 Ordered: 28-Oct-2020 DO Start : 28-Oct-2020 Active betamethasone to pical valerate 0.1% topical cream ; 1 milena topical prn Quantity: 0 Refills: 0 Ordered: 12-Dec-2020 Carole Mcdaniel Status: Discontinued Generic Substitution Allowed buprenorphine 8 mg / naloxone 2 mg sublingual film (17 sources) Partial Opioid Agonist, Opioid Antagonist Start: 10-28-2020 Suboxone 8-2 MG Sublingual Film Quantity: 0 Refills: 0 Ordered: 28-Oct-2020 DO Start : 28-Oct-2020 Active Start: 01-05-2016 Suboxone 8 mg- 2 mg sublingual film 2 EA, SubLingual, Daily, Refill(s) 0 Start Date: 01/05/16 Status: Ordered take 1 tablet under the tongue twice daily Suboxone 8 mg-2 mg sublingual tablet ; 1 tab(s) sublingual 2 times a day Quantity: 0 Refills: 0 Ordered: 30-Sep-2021 Concetta Shi Generic Substitution Allowed Suboxone 8 mg-2 mg sublingual tablet ; 1 tab(s) sublingual -Please discuss with prescriber about when to restart/transition back to this medication Quantity: 0 Refills: 0 Ordered: 01-Jan-2021 Ambrocio Izaguirre Generic Substitution Allowed chlorhexidine gluconate 40 mg/ml medicated liquid soap (11 sources) Start: 12-12-2020 Chlorhexidine Gluconate 4 % LIQD use as a preoperative shower Quantity: 1 Refills: 0 Ordered: 12-Dec-2020 Vanessa Khan Start : 12-Dec-2020 Active cyclobenzaprine hydrochloride 5 mg oral tablet (20 sources) Muscle Relaxant Start: 10-28-2020 Cyclobenzaprin e HCl - 5 MG Oral Tablet Quantity: 0 Refills: 0 Ordered: 28-Oct-2020 DO Start : 28-Oct-2020 Active Start: 01-05-2016 take 1 tablet by marlen th three times daily Flexeril 10 mg Tab 10 mg = 1 tab(s), Oral, TID, Refills(s) 0 Start Date: 01/05/16 Status: Ordered take 1 tablet by marlen once daily cyclobenzaprine 5 mg oral tablet ; 1 tab(s) oral once a day Quantity: 0 Refills: 0 Ordered: 05-Dec-2020 Carole Mcdaniel Status: Discontinued Generic Substitution Allowed gabapentin 800 mg oral tablet (20 sources) Anti-epileptic Agent Start: 10-02-2021 End: 10-31-2021 take 1 tablet by mouth three times daily for pain gabapentin 800 mg oral tablet ; 1 tab(s) oral 3 times a day-For post operative pain- 30 days supply- ICD 10: G89.19 Quantity: 90 Refills: 0 Ordered: 02-Oct-2021 Ambrocio Izaguirre Start: 02-Oct-2021 End: 31-Oct-2021 Generic Substitution Allowed Start: 10-28-2020 Gabapentin 800 MG Oral Tablet Quantity: 0 Refills: 0 Ordered: 28-Oct-2020 DO Start : 28-Oct-2020 Active Start: 01-05-2016 [facility] 2 capsules [facility] daily Neurontin 100 mg Cap 200 mg = 2 cap(s), Oral, TID, Refills(s) 0 Start Date: 01/05/16 Status: Ordered take 1 tablet by marlen three times daily gabapentin 800 mg oral tablet ; 1 tab(s) oral 3 times a day Quantity: 0 Refills: 0 Ordered: 12-Dec-2020 Carole Mcdaniel Generic Substitution Allowed lisinopril 20 mg oral tablet (20 sources) Angiotensin Converting Enzyme Inhibitor Start: 10-28-2020 Lisinopril 20 MG Ora l Tablet Quantity: 0 Refills: 0 Ordered: 28-Oct-2020 DO Start : 28-Oct-2020 Active Start: 01-05-2016 take 1 tablet by marlen th once daily lisinopril 10 mg Tab 10 mg = 1 tab(s), Oral, Daily, Refills(s) 0 Start Date: 01/05/16 Status: Ordered take 1 tablet by marlen th once daily lisinopril 20 mg oral tablet ; 1 tab(s) oral once a day Quantity: 0 Refills: 0 Ordered: 12-Dec-2020 Carole Mcdaniel Generic Substitution Allowed mupirocin 0.02 mg/mg topical ointment (11 sources) RNA Synthetase Inhibitor Antibacterial Start: 12-12-2020 Mupirocin 2 % External Ointment use intra nasally 3 days before surgery twice daily Quantity: 1 Refills: 0 Ordered: 12-Dec-2020 Vanessa Khan Start : 12-Dec-2020 Active 24 hr nicotine 0.583 mg/hr transdermal system (2 sources) Cholinergic Nicotinic Agonist Start: 01-01-2021 nicotine 14 mg/24 hr transdermal film, extended release ; 1 patch transdermally once a day Quantity: 30 Refills: 0 Ordered: 01-Jan-2021 Ambrocio Izaguirre Start: 01-Jan-2021 Status: Discontinued Generic Substitution Allowed Comments: Do not take this drug if you are .For external use only.It is very important that you take or use this exactly as directed. Do not skip doses or discontinue unless directed by your doctor.Remove old patch prior to applying a new patch. Comment on above: Do not take this love g if you are .For external use only.It is very important that you take or use this exactly as directed. Do not skip doses or discontinue unless directed by your doctor.Remove old patch prior to applying a new patch. nitrofurantoin, macrocrystals 25 mg / nitrofurantoin, monohydrate 75 mg oral capsule (1 source) Nitrofuran Antibacterial Start: 11-26-2022 Macrobid 100 mg Cap 100 mg = 1 cap(s), Oral, As Directed, Take 1 tab by mouth after catheter change then take second tab 12 hours later. Take with food., # 2 cap(s), Refills(s) 0, [facility]acy: [facility] #[id number], 156, cm, 11/26/22 8:15:00 EDT, Height/Length Dosing, 78, kg, ... Start Date: 11/26/22 Status: Ordered ondansetron 4 mg oral tablet (13 sources) Serotonin-3 Receptor Antagonist Start: 10-28-2020 Zofran 4 MG TABS Quantity: 0 Refills: 0 Ordered: 28-Oct-2020 DO Start : 28-Oct-2020 Active Zofran 4 mg oral tablet ; 1 tab(s) oral Quantity: 0 Refills: 0 Ordered: 05-Dec-2020 Carole Mcdaniel Status: Discontinued Generic Substitution Allowed polyethylene glycol 3350 507788 mg / potassium chloride 2970 mg / sodium bicarbonate 6740 mg / sodium chloride 5860 mg / sodium sulfate 83412 mg powder for oral solution (8 sources) Osmotic Laxative Start: 09-29-2021 PEG-3350/Elec trolytes 236 GM Oral Solution Reconstituted TAKE DIRECTED. Quantity: 1 Refills: 0 Ordered: 29-Sep-2021 Nasra Gautam MD Start : 29-Sep-2021 Active Prior to colonoscopy Problems Active Problems Problem Classification Problem Date Documented Da te Episodic/Chronic Allergic reactions (1 source) Allergy status to penicillin; Translations: [Allergy status to penicillin] Onset: 06-07-2022 Episodic Anxiety disorders (2 sources) Anxiety disorder, unspecified; Translations: [Post-traumatic stress disorder, unspecified] Onset: 10-02-2021 Chronic E Codes: Fall (1 source) Fall on same level, unspecified, initial encounter; Translations: [Fall on same level, unspecified, initial encounter] Onset: 06-07-2022 Episodic Esophageal disorders (1 source) Gastro-esophageal reflux disease without esophagitis; Translations: [Gastro-esophageal reflux disease without esophagitis] Onset: 10-02-2021 Chronic Essential hypertension (2 sources) Essential (primary) hypertension; Translations: [Essential (primary) hypertension] Onset: 06-07-2022 Chronic Gastroduodenal ulcer (except hemorrhage) (1 source) Peptic ulcer, site unspecified, unspecified as acute or chronic, without hemorrhage or perforation; Translations: [Peptic ulc, site unsp, unsp as ac or chr, w/o hemor or perf] Onset: 10-02-2021 Chronic Genitourinary symptoms and ill-defined conditions (20 sources) Unspecified urinary incontinence; Translations: [Incontinence without sensory awareness] Onset: 10-02-2021 Chronic Genitourinary symptoms and ill-defined conditions (20 sources) History of urinary tract infection; Translations: [Personal history of urinary (tract) infections] Onset: 01-06-2022 Episodic Joint disorders and dislocations; trauma-related (10 sources) Dislocation of lumbar facet joint; Translations: [Closed dislocation, lumbar vertebra] Episodic Mood disorders (8 sources) Depressive disorder; Translations: [Major depressive disorder, single episode, unspecified] Onset: 06-01-2022 02-21-2014 Chronic Mood disorders (2 sources) Mood disorders; Translations: [Depression, unspecified] Onset: 10-02-2021 Nausea and vomiting (3 sources) Nausea; Translations: [NAUSEA] Onset: 11-09-2022 Episodic Other acquired deformities (12 sources) Kyphosis of thoracic spine; Translations: [Kyphosis (acquired) (postural)] 12-27-2020 Chronic Other acquired deformities (20 sources) Acquired kyphosis; Translations: [Kyphosis (acquired) (postural)] Chronic Other acquired deformities (11 sources) Scoliosis of lumbar spine; Translations: [Scoliosis [and kyphoscoliosis], idiopathic] Chronic Other acquired deformities (10 sources) Kyphosis deformity of spine; Translations: [Kyphosis associated with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 ? You have back pain. ? Your catheter gets clogged. ? Your catheter starts to leak. ? Your urine looks cloudy. ? Your drainage bag or tubing looks dirty. ? You notice a bad smell when emptying your drainage bag. Get help right away if: ? You have a fever or chills. ? You have severe pain in your back or your lower abdomen. ? You have warmth, redness, swelling, or pain in the urethra area. ? You notice blood in your urine. ? Your catheter gets pulled out. Summary ? Do not pull on your catheter or try to remove it. ? Keep the drainage bag at or below the level of your bladder, but do not let the drainage bag or catheter tubing touch the floor. ? Wash your hands with soap and water before and after touching the catheter, tubing, or drainage bag. ? Contact your health care provider if you have a fever, chills, or any other signs of infection. This information is not intended to replace advice given to you by your health care provider. Make sure you discuss any questions you have with your health care provider. Document Released: 10/01/2017 Document Revised: 12/14/2019 Document Reviewed: 10/01/2017 Elsevier Patient Education ? 2019 Your.MD. [facility] Retail - Clinical Noteon Retail - Clinical Note [id number]:127 Normal [facility] Urology Office/Clinic Noteon 11-26-2022 Urology Office/Clinic Note Chief Complaint Cath change and discuss S/P tube placement HPI Staff Morales is a 47 y/o female here for a cath change and to discuss redoing her surgery. Previous DX: History of UTI, incontinence without sensory awareness. Dysuria: _at times Hematuria: _yes Abdominal pain: _denies Flank pain: _denies History of Present Illness Tests reviewed: op note. I have reviewed the previous health record information and history for this patient from Dr. Bingham. I have reviewed and verified the staff HPI to be accurate for this encounter. There have been no associated fever, chills, flank pain, or blood in the urine. Denies any urinary infections since last encounter. Review of Systems PHQ Score Initial Depression Screen Score: 0 ROS - Provider Constitutional: denies weight loss, denies hot flashes. Eyes: denies eye problems. Gastrointestinal: denies nausea, denies vomiting. Cardiovascular: denies chest pain or angina. Integumentary: no dryness Musculoskeletal: moderate musculoskeletal symptoms. ENMT: denies otolaryngeal symptoms. Respiratory: no shortness of breath. Heme/Lymph: denies easy bleeding tendency, denies easy bruising tendency. Psychiatric: no confusion, no anxiety. Genitourinary: See HPI. Physical Exam Vitals & Measurements HT: 61 in HT: 156 cm WT: 78 kg WT: 171.6 lb BMI: 32.05 General Appearance: alert , no acute distress, well nourished, well developed female. Disheveled. Wheelchair bound. Healing abd/lower extremity skin wounds. Poor dentition Genitourinary: bladder nonpalpable, no flank pain. 20Fr alvares to gravity with very concentrated yellow urine with debris. Calcified catheter tip. New 18 Vietnamese two-way Alvares catheter inserted without difficulty. 15cc in balloon. Widely patulous urethra with iatrogenic hypospadias. Leakage with irrigation. Assessment/Plan 1. Urinary incontinence without sensory awareness (N39.42: Incontinence without sensory awareness) -Pt states that she had worsening urinary incontinence since 2020 and complete urinary incontinence after back surgeries in September 2021. Discussed risks and benefits of suprapubic cath placement and that leakage would still occur given widely patent urethra secondary to traumatic alvares removals with balloon inflated. -Cysto/Uros 01/11/22 - Small bladder capacity and widely patent bladder neck with constant leakage throughout the evaluation. No pelvic floor contraction on physical exam. DLPP 28 cm H20 at volume 103 mL, no sensory awareness of leak. Patient unable to void. Detrusor pressure flat throughout filling and leaking phases with elevated abd pressures. Residual volumes 20 to 68 mL after leakage. -Cath exchanged 07/16/22 - 18 Fr, 15ml in balloon with return of clear yellow urine, strong odor. Prior alvares was calcified. -S/p cysto, SP aspiration, attempted SP tube placement 08/25/22. Due to concern of steep angle. potential position of catheter within bladder and potential for bowel injury, decision was made not to place the SP catheter. 18 Fr straight exchanged today without issue, 15ml in balloon with return of clear yellow urine, strong odor. The patient denies major complications since the last catheter change. There has been no blood in the urine and no evidence of fever, chills, or flank pain. The Alvares was changed in the office today with no difficulties, and flushes appropriately to ensure proper placement. Again, thorough conversation with patient regarding compliance (no show to prior cath exchanges and f/u appt), failure to manage bowels and inability to place SP tube previously. Again, discussed prior recommendations for referral to tertiary center given complex nature. She declined before. However today she is in agreement as I will not attempt to place SP tube again. Patient continues to have issues with bowels. Recommended referral to GI, but states her PCP is managing it. She has had difficulty for a long time. Follow up 1 month cath change or sooner if needed. Pt understands and agrees with plan. -Refer to [facility] for possible SP catheter placement and/or bladder neck closure, further mgmt of neurogenic, non compliant bladder with patent urethra -Order given for catheter drainage bags -Macrobid 100 mg x 2 tabs for cath exchange prophy today. Sent to [facility]. -Consider Bulkamid in future if still leaking after SPT, wants to avoid invasive procedures -Re-assess SNM in future if needed -High fluid intake to prevent catheter calcification 2. Intrinsic sphincter deficiency (ISD) (N36.42: Intrinsic sphincter deficiency (ISD)) Pelvic exam 07/16/22 - Widely patent bladder neck with constant leakage. -Consider Bulkamid in future if still leaking after SPT, wants to avoid invasive procedures 3. Incomplete bladder emptying (R33.9: Retention of urine, unspecified) Discussed SNM in the future, may not be candidate given scar tissue and hardware from back surgery to S1. -Re-assess SNM in future if needed -Cont alvares q4w exchange, SPT as ab (more content not included)... Normal [facility] Comment on above: Result Comment: Elec tronically Signed By: Zachery HARKINS, Danya Rhodes\.br\Date and Time Signed: 11/26/22 08:53 EDT\.br\Electronically Co-Signed By: Yari Barron\.br\Date and Time Co-Signed: 11/26/22 08:44 EDT ED Note-Physicianon 11-12-19 ED Note-Physician [id number]:127 Normal [facility] AMYLASEon 11-09-2022 Amylase [Catalytic activity/Vol] 14 U/L Critically low 25-115 [facility] Comment on above: Performed By: #### U MICRO, ERUR #### [facility] [address] [place] [address] Dr. Alfredo Lizama CBC AUTO DIFFon 11-09-2022 BASO # 0.1 103/ul Normal 0.0-0.1 [facility] Comment on above: Performed By: #### U MICRO, ERUR #### [facility] [address] [place] [address] Dr. Alfredo Lizama Basophils/100 WBC (Bld) 0.8 % Normal 0.2-2.0 [facility] Comment on above: Performed By: #### U MICRO, ERUR #### [facility] [address] [place] [address] Dr. Alfredo Lizama EO # 0.2 103/ul Normal 0.0-0.7 [facility] Comment on above: Performed By: #### U MICRO, ERUR #### [facility] [address] [place] [address] Dr. Alfredo Lizama Eosinophils/100 WBC (Bld) 2.5 % Normal 0.9-7.0 [facility] Comment on above: Performed By: #### U MICRO, ERUR #### [facility] [address] [place] [address] Dr. Alfredo Lizama Erythrocyte distribution width (RBC) [Ratio] 12.7 % Normal 11.0-15.0 [facility] Comment on above: Performed By: #### U MICRO, ERUR #### [facility] [address] [place] [address] Dr. Alfredo Lizama Hematocrit (Bld) [Volume fraction] 46.3 % Normal 36.0-48.0 [facility] Comment on above: Performed By: #### U MICRO, ERUR #### [facility] [address] [place] [address] Dr. Alfredo Lizama Hemoglobin (Bld) [Mass/Vol] 15.9 g/dL Normal 12.0-16.0 [facility] Comment on above: Performed By: #### U MICRO, ERUR #### [facility] [address] [place] [address] Dr. Alfredo Lizama IG # 0.02 10e3/ul Normal 0.00-0.03 [facility] Comment on above: Performed By: #### U MICRO, ERUR #### [facility] [address] [address] [address] Alfredo Lizama IG % 0.2 % Normal 0.0-0.5 [facility] Comment on above: Performed By: #### U MICRO, ERUR #### [facility] [address] [address] [address] Alfredo Lizama LYMPH # 2.6 103/ul Normal 1.2-3.8 [facility] Comment on above: Performed By: #### U MICRO, ERUR #### [facility] [address] [address] [address] Alfredo Lizama Lymphocytes/100 WBC (Bld) 31.3 % Normal 20.5-60.0 [facility] Comment on above: Performed By: #### U MICRO, ERUR #### [facility] [address] [place] [address] Dr. Alfredo Lizama MANUAL DIFF REQ NO Normal [facility] Comment on above: Performed By: #### U MICRO, ERUR #### [facility] [address] [place] [address] Dr. Alfredo Lizama MCH (RBC) [Entitic mass] 29.3 pg Normal 26.7-34.0 [facility] Comment on above: Performed By: #### U MICRO, ERUR #### [facility] [address] [place] [address] Dr. Alfredo Lizama MCHC (RBC) [Mass/Vol] 34.3 g/dL Normal 29.9-35.2 [facility] Comment on above: Performed By: #### U MICRO, ERUR #### [facility] [address] [address] [address] Alfredo Lizama MCV (RBC) [Entitic vol] 85.4 fL Normal 81.0-99.0 [facility] Comment on above: Performed By: #### U MICRO, ERUR #### [facility] [address] [address] [address] Alfredo Lizama MONO # 0.6 103/ul Normal 0.3-0.8 [facility] Comment on above: Performed By: #### U MICRO, ERUR #### [facility] [address] [address] [address] Alfredo Lizama Monocytes/100 WBC (Bld) 6.6 % Normal 1.7-12.0 [facility] Comment on above: Performed By: #### U MICRO, ERUR #### [facility] [address] [place] [address] Dr. Alfredo Lizama NEUT # 4.9 103/ul Normal 1.4-6.5 [facility] Comment on above: Performed By: #### U MICRO, ERUR #### [facility] [address] [place] [address] Dr. Alfredo Lizama Neutrophils/100 WBC (Bld) 58.6 % Normal 43.0-75.0 [facility] Comment on above: Performed By: #### U MICRO, ERUR #### [facility] [address] [place] [address] Dr. Alfredo Lizama Platelet mean volume (Bld) [Entitic vol] 9.5 fL Normal 9.5-13.5 [facility] Comment on above: Performed By: #### U MICRO, ERUR #### [facility] [address] [place] [address] Dr. Alfredo Lizama PLT 273 103/ul Normal 150-450 [facility] Comment on above: Performed By: #### U MICRO, ERUR #### [facility] [address] [place] [address] Dr. Alfredo Lizama RBC 5.42 106/ul Critically high 4.20-5.40 [facility] Comment on above: Performed By: #### U MICRO, ERUR #### [facility] [address] [place] [address] Dr. Alfredo Lizama WBC 8.4 103/ul Normal 4.0-11.0 [facility] Comment on above: Performed By: #### U MICRO, ERUR #### [facility] [address] [place] [address] Dr. Alfredo Lizama CULTURE URINEon 11-09-2022 CULTURE URINE Culture Observations : MODERATE GROWTH OF MIXED GENITAL ROSANNA. NO POTENTIAL PATHOGENS SEEN. Normal [facility] Comment on above: Performed By: #### U MICRO, ERUR #### [facility] [address] [address] [address] Alfredo SANDY URINE PROFILEon 3 Bilirubin Ql (U) Negative Normal NEGATIVE [facility] Comment on above: Performed By: #### U MICRO, ERUR #### [facility] [address] [address] [address] Alfredo Lizama Clarity (U) CLEAR Normal CLEAR [facility] Comment on above: Performed By: #### U MICRO, ERUR #### [facility] [address] [address] [address] Alfredo Lizama Color (U) LT. YELLOW Normal YELLOW [facility] Comment on above: Performed By: #### U MICRO, ERUR #### [facility] [address] [place] [address] Dr. Alfredo Lizama ERUAHD A micrscopic examina tion will be performed if indicated. Normal [facility] Comment on above: Performed By: #### U MICRO, ERUR #### [facility] [address] [place] [address] Dr. Alfredo Lizama Glucose Ql (U) Negative Normal NEGATIVE [facility] Comment on above: Performed By: #### U MICRO, ERUR #### [facility] [address] [address] [address] Alfredo Lizama Hemoglobin Ql (U) MODERATE Abnormal NEGATIVE [facility] Comment on above: Performed By: #### U MICRO, ERUR #### [facility] [address] [address] [address] Alfredo Lizama Ketones Ql (U) Negative Normal NEGATIVE [facility] Comment on above: Performed By: #### U MICRO, ERUR #### [facility] [address] [address] [address] Alfredo Lizama LEUKOCYTES LARGE Abnormal NEGATIVE [facility] Comment on above: Performed By: #### U MICRO, ERUR #### [facility] [address] [address] [address] Alfredo Lizama Nitrite Ql (U) Negative Normal NEGATIVE [facility] Comment on above: Performed By: #### U MICRO, ERUR #### [facility] [address] [place] [address] Dr. Alfredo Lizama pH (U) 7.0 [pH] Normal 5-9 [facility] Comment on above: Performed By: #### U MICRO, ERUR #### [facility] [address] [place] [address] Dr. Alfredo Lizama SPEC GRAVITY 1.015 Normal 1.005-<=1.0 25 [facility] Comment on above: Performed By: #### U MICRO, ERUR #### [facility] [address] [place] [address] Dr. Alfredo Lizama UA PROTEIN Negative Normal NEGATIVE/ TRACE [facility] Comment on above: Performed By: #### U MICRO, ERUR #### [facility] [address] [place] [address] Dr. Alfredo Lizama UR MICRO IND INDICATED Normal [facility] Comment on above: Performed By: #### U MICRO, ERUR #### [facility] [address] [place] [address] Dr. Alfredo Lizama Urobilinogen Qn (U) 0.2 {Tesha'U}/dL Normal 0.2 - 1. 0 [facility] Comment on above: Performed By: #### U MICRO, ERUR #### [facility] [address] [place] [address] Dr. Alfredo Lizama LIPASEon 11-09-2022 Lipase [Catalytic activity/Vol] 34.0 U/L Critically low 73.0-393.0 [facility] Comment on above: Performed By: #### U MICRO, ERUR #### [facility] [address] [place] [address] Dr. Alfredo Lizama PROF 14(COMP METB)on 023 Albumin [Mass/Vol] 4.0 g/dL Normal 3.4-5.0 [facility] Comment on above: Performed By: #### U MICRO, ERUR #### [facility] [address] [place] [address] Dr. Alfredo Lizama Albumin/Globulin [Mass ratio] 1.0 {ratio} Normal [facility] Comment on above: Performed By: #### U MICRO, ERUR #### [facility] [address] [address] [address] Alfredo Lizama ALP [Catalytic activity/Vol] 206 U/L Critically high 46-116 [facility] Comment on above: Performed By: #### U MICRO, ERUR #### [facility] [address] [address] [address] Alfredo Lizama ALT [Catalytic activity/Vol] 53 U/L Normal 14-59 [facility] Comment on above: Performed By: #### U MICRO, ERUR #### [facility] [address] [place] [address] Dr. Alfredo Lizama Anion gap [Moles/Vol] 14.5 mmol/L Normal [facility] Comment on above: Performed By: #### U MICRO, ERUR #### [facility] [address] [place] [address] Dr. Alfredo Lizama AST [Catalytic activity/Vol] 55 U/L Critically high 15-37 [facility] Comment on above: Performed By: #### U MICRO, ERUR #### [facility] [address] [place] [address] Dr. Alfredo Lizama Bilirubin [Mass/Vol] 0.7 mg/dL Normal 0.2-1.0 [facility] Comment on above: Performed By: #### U MICRO, ERUR #### [facility] [address] [place] [address] Dr. Alfredo Lizama Calcium [Mass/Vol] 9.0 mg/dL Normal 8.5-10.1 [facility] Comment on above: Performed By: #### U MICRO, ERUR #### [facility] [address] [place] [address] Dr. Alfredo Lizama Chloride [Moles/Vol] 100 mmol/L Normal 98-107 [facility] Comment on above: Performed By: #### U MICRO, ERUR #### [facility] [address] [place] [address] Dr. Alfredo Lizama CO2 [Moles/Vol] 28.3 mmol/L Normal 21.0-32.0 [facility] Comment on above: Performed By: #### U MICRO, ERUR #### [facility] [address] [address] [address] Alfredo Lizama Creatinine [Mass/Vol] 0.65 mg/dL Normal 0.55-1.02 [facility] Comment on above: Performed By: #### U MICRO, ERUR #### [facility] [address] [place] [address] Dr. Alfredo Lizama EGFR-AF [place] >60 Normal >=60 [facility] Comment on above: Performed By: #### U MICRO, ERUR #### [facility] [address] [place] [address] Dr. Alfredo Lizama EGFR-NON AF [place] >60 Normal >=60 [facility] Comment on above: Performed By: #### U MICRO, ERUR #### [facility] [address] [address] [address] Alfredo Lizama Globulin (S) [Mass/Vol] 3.9 g/dL Normal [facility] Comment on above: Performed By: #### U MICRO, ERUR #### [facility] [address] [address] [address] Alfredo Lizama Glucose [Mass/Vol] 134 mg/dL Critically high 74-106 [facility] Comment on above: Performed By: #### U MICRO, ERUR #### [facility] [address] [address] [address] Alfredo Lizama Potassium [Moles/Vol] 3.8 mmol/L Normal 3.5-5.1 [facility] Comment on above: Performed By: #### U MICRO, ERUR #### [facility] [address] [address] [address] Alfredo Lizama Protein [Mass/Vol] 7.9 g/dL Normal 6.4-8.2 [facility] Comment on above: Performed By: #### U MICRO, ERUR #### [facility] [address] [address] [address] Alfredo Lizama Sodium [Moles/Vol] 139 mmol/L Normal 136-145 [facility] Comment on above: Performed By: #### U MICRO, ERUR #### [facility] [address] [address] [address] Alfredo Lizama Urea nitrogen [Mass/Vol] 7.0 mg/dL Normal 7.0-18.0 [facility] Comment on above: Performed By: #### U MICRO, ERUR #### [facility] [address] [place] [address] Dr. Alfredo Lizama Urea nitrogen/Creatinine [Mass ratio] 10.7 mg/mg Normal [facility] Comment on above: Performed By: #### U MICRO, ERUR #### [facility] [address] [place] [address] Dr. Alfredo Lizama URINE MICROSCOPIC ONLYon BACTERIA TRACE Abnormal NONE SEEN [facility] Comment on above: Performed By: #### U MICRO, ERUR #### [facility] [address] [place] [address] Dr. Alfredo Lizama Bacteria identified Cx Nom (U) INDICATED Normal [facility] Comment on above: Performed By: #### U MICRO, ERUR #### [facility] [address] [place] [address] Dr. Alfredo Lizama CAST NONE SEEN Normal NONE SEEN [facility] Comment on above: Performed By: #### U MICRO, ERUR #### [facility] [address] [place] [address] Dr. Alfredo Lizama Crystals LM Nom (Urine sed) NONE SEEN Normal NONE SEEN [facility] Comment on above: Performed By: #### U MICRO, ERUR #### [facility] [address] [address] [address] Alfredo Lizama Epithelial cells LM Ql (Urine sed) FEW Abnormal NONE SEEN /RARE [facility] Comment on above: Performed By: #### U MICRO, ERUR #### [facility] [address] [place] [address] Dr. Alfredo Lizama MUCOUS NONE SEEN Normal NONE SEEN [facility] Comment on above: Performed By: #### U MICRO, ERUR #### [facility] [address] [place], [place] [address] Dr. Alfredo Lizama RBC 20-50 Abnormal 0-2 [facility] Comment on above: Performed By: #### U MICRO, ERUR #### [facility] [address] [place], [place] [address] Dr. Alfredo Lizama WBC 20-50 Abnormal NONE SEEN [facility] Comment on above: Performed By: #### U MICRO, ERUR #### [facility] [address] [address] [address] Alfredo Lizama XR ABD FLAT_UPon 11-09-2022 XR ABD FLAT_UP EXAMINATION: XR ABD FLAT_UP HISTORY: Nausea COMPARISON: No relevant comparison available. FINDINGS: BOWEL GAS PATTERN: Large amount of stool throughout the colon. No abnormal bowel dilation, suspicious fluid levels, or evidence of obstruction. FREE AIR: None. CALCIFICATIONS: None significant. BONES: Posterior mechanical fusion of the thoracic and lumbar spine. OTHER: Negative. IMPRESSION: 1. Large stool burden suggestive of constipation. No evidence of obstruction. Electronically authenticated by: ENRIQUE LOWE Date: 2022-11-09 11:06 Normal [facility] ED Note-Physicianon 11-06-19 ED Note-Physician [id number]:127 Normal [facility] Lab Reportson 11-05-2022 Lab Reports [id number]:127 Normal [facility] CULTURE URINEon 10-18-2022 CULTURE URINE Isolate 1 Staphylococcus aureus >100,000 cfu/mL of Isolate 2 Enterococcus faecalis >100,000 cfu/mL of ORGANISM 2 Enterococcus faecalis ANTIBIOTIC M.I.C RX STATUS Beta-Lactamase Neg NEG F Benzylpenicillin 1 S F Ampicillin <=2 S F Gentamicin High Level (synergy) SYN-S S F Streptomycin High Level (synergy) SYN-S S F Ciprofloxacin <=0.5 S F Levofloxacin 0.5 S F Quinupristin/Dalfopristin 2 R F Linezolid 2 S F Vancomycin <=0.5 S F Tetracycline >=16 R F Nitrofurantoin <=16 S F ORGANISM 1 Staphylococcus aureus ANTIBIOTIC M.I.C RX STATUS Beta-Lactamase Pos POS F Cefoxitin Screen Neg NEG F Benzylpenicillin >=0.5 R F Oxacillin <=0.25 S F Gentamicin <=0.5 S F Ciprofloxacin <=0.5 S F Levofloxacin 0.25 S F Moxifloxacin <=0.25 S F Inducible Clindamycin Resistance Neg NEG F Quinupristin/Dalfopristin <=0.25 S F Linezolid 2 S F Vancomycin 1 S F Tetracycline <=1 S F Nitrofurantoin <=16 S F Rifampicin <=0.5 S F Trimethoprim/Sulfamethoxazo le <=10 S F Normal [facility] Comment on above: Performed By: #### AUTUMN BREWER #### [facility] [address] [place] [address] Dr. Alfredo Lizama Retail - Clinical Noteon Retail - Clinical Note [id number]:127 Normal [facility] ER URINE PROFILEon 3 Bilirubin Ql (U) Negative Normal NEGATIVE [facility] Comment on above: Performed By: #### LINDA CHAVES #### [facility] [address] [place] [address] Dr. Alfredo Lizama Clarity (U) CLEAR Normal CLEAR [facility] Comment on above: Performed By: #### CHINMAY CHAVESRO #### [facility] [address] [place] [address] Dr. Alfredo Lizama Color (U) YELLOW Normal YELLOW [facility] Comment on above: Performed By: #### CHINMAY CHAVESRO #### [facility] [address] [place] [address] Dr. Alfredo RAYMUNDO A micrscopic examina tion will be performed if indicated. Normal [facility] Comment on above: Performed By: #### FER CHAVESICRO #### [facility] [address] [place] [address] Dr. Alfredo Lizama Glucose Ql (U) Negative Normal NEGATIVE [facility] Comment on above: Performed By: #### Jacque ESTRADA UMICRO #### [facility] [address] [place] [address] Dr. Alfredo Lizama Hemoglobin Ql (U) LARGE Abnormal NEGATIVE [facility] Comment on above: Performed By: #### Jacque ESTRADA UMICRO #### [facility] [address] [place] [address] Dr. Alfredo Lizama Ketones Ql (U) Negative Normal NEGATIVE [facility] Comment on above: Performed By: #### Jacque ESTRADA UMICRO #### [facility] [address] [place] [address] Dr. Alfredo Lizama LEUKOCYTES LARGE Abnormal NEGATIVE [facility] Comment on above: Performed By: #### Jacque ESTRADA UMICRO #### [facility] [address] [place] [address] Dr. Alfredo Lizama Nitrite Ql (U) Positive Abnormal NEGATIVE [facility] Comment on above: Performed By: #### Jacque ESTRADA UMICRO #### [facility] [address] [place] [address] Dr. Alfredo Lizama pH (U) 6.5 [pH] Normal 5-9 [facility] Comment on above: Performed By: #### Jacque ESTRADA UMICRO #### [facility] [address] [place] [address] Dr. Alfredo Lizama Protein (U) [Mass/Vol] 100 mg/dL Abnormal NEGATIVE/ TRACE [facility] Comment on above: Performed By: #### Jacque ESTRADA UMICRO #### [facility] [address] [place] [address] Dr. Alfredo Lizama SPEC GRAVITY 1.010 Normal 1.005-<=1.0 25 [facility] Comment on above: Performed By: #### FER CHAVESICRO #### [facility] [address] [place] [address] Dr. Alfredo Lizama UR MICRO IND INDICATED Normal [facility] Comment on above: Performed By: #### Jacque ESTRADA UMICRO #### [facility] [address] [place] [address] Dr. Alfredo Lizama Urobilinogen Qn (U) 1.0 {Tesha'U}/dL Normal 0.2 - 1. 0 [facility] Comment on above: Performed By: #### E RURLINDA #### [facility] [address] [place] [address] Dr. Alfredo Lizama URINE MICROSCOPIC ONLYon BACTERIA MODERATE Abnormal NONE SEEN [facility] Comment on above: Performed By: #### U MICRO, ERUR #### [facility] [address] [place] [address] Dr. Alfredo Lizama Bacteria identified Cx Nom (U) INDICATED Normal [facility] Comment on above: Performed By: #### U MICRO, ERUR #### [facility] [address] [place] [address] Dr. Alfredo Lizama CA OX CRYSTALS RARE Normal [facility] Comment on above: Performed By: #### U MICRO, ERUR #### [facility] [address] [place] [address] Dr. Alfredo Lizama CAST NONE SEEN Normal NONE SEEN [facility] Comment on above: Performed By: #### U MICRO, ERUR #### [facility] [address] [place] [address] Dr. Alfredo Lizama Crystals LM Nom (Urine sed) SEEN Abnormal NONE SEEN [facility] Comment on above: Performed By: #### U MICRO, ERUR #### [facility] [address] [place] [address] Dr. Alfredo Lizama Epithelial cells LM Ql (Urine sed) MODERATE Abnormal NONE SEEN /RARE [facility] Comment on above: Performed By: #### U MICRO, ERUR #### [facility] [address] [place] [address] Dr. Alfredo Lizama MUCOUS TRACE Abnormal NONE SEEN [facility] Comment on above: Performed By: #### U MICRO, ERUR #### [facility] [address] [place] [address] Dr. Alfredo Lizama RBC 20-50 Abnormal 0-2 [facility] Comment on above: Performed By: #### U MICRO, ERUR #### [facility] [address] [place], [place] [address] Dr. Alfredo Lizama WBC 50-75 Abnormal NONE SEEN [facility] Comment on above: Performed By: #### U MICRO, ERUR #### [facility] [address] [place], [place] [address] Dr. Alfredo Lizama Patient Educationon 09-23-19 Patient Education Urology Sacral Nerve Stimulator Implantation Sacral nerve stimulator implantation is a procedure to place a device under the skin. The device generates mild electrical impulses. It is placed permanently in the area of the upper buttocks. Wires are also inserted into the body so that electrical impulses generated by the device can be sent to the sacral nerves. The sacral nerves control several functions in the lower part of the body, including the passing of urine and stool. Sacral nerve stimulation can be used to treat disorders that make it hard to control urination and bowel movements. After the device is implanted, it can be used 24 hours a day. The stimulator will be programmed for you. Your health care provider will set how strong the pulses will be (intensity) and how often they occur (frequency). Before putting in the implant, a trial test will be done to make sure that the treatment will work. Tell a health care provider about: ? Any allergies you have. ? All medicines you are taking, including vitamins, herbs, eye drops, creams, and dnza-apw-wcbsmty medicines. ? Any problems you or family members have had with anesthetic medicines. ? Any blood disorders you have. ? Any surgeries you have had. ? Any medical conditions you have or have had. ? Whether you are or may be . What are the risks? Generally, this is a safe procedure. However, problems may occur, including: ? Infection. ? Bleeding. ? Uncomfortable sensations, such as a jolting or shocking feeling. ? Movement of the electrode away from the place where it was inserted (migration). ? Failure of the stimulator. ? Damage to other structures or organs, such as nerves near the spine. ? Allergic reactions to medicines or the device. What happens before the procedure? Staying hydrated Follow instructions from your health care provider about hydration, which may include: ? Up to 2 hours before the procedure ? you may continue to drink clear liquids, such as water, clear fruit juice, black coffee, and plain tea. Eating and drinking restrictions Follow instructions from your health care provider about eating and drinking, which may include: ? 8 hours before the procedure ? stop eating heavy meals or foods, such as meat, fried foods, or fatty foods. ? 6 hours before the procedure ? stop eating light meals or foods, such as toast or cereal. ? 6 hours before the procedure ? stop drinking milk or drinks that contain milk. ? 2 hours before the procedure ? stop drinking clear liquids. Medicines Ask your health care provider about: ? Changing or stopping your regular medicines. This is especially important if you are taking diabetes medicines or blood thinners. ? Taking medicines such as aspirin and ibuprofen. These medicines can thin your blood. Do not take these medicines unless your health care provider tells you to take them. ? Taking qvqz-zee-plcuegu medicines, vitamins, herbs, and supplements. General instructions ? Plan to have someone take you home from the hospital or clinic. ? If you will be going home right after the procedure, plan to have someone with you for 24 hours. ? Ask your health care provider what steps will be taken to help prevent infection. These may include: ? Removing hair at the surgery site. ? Washing skin with a germ-killing soap. ? Taking antibiotic medicine. What happens during the procedure? ? An IV will be inserted into one of your veins. ? You will be given one or more of the following: ? A medicine to help you relax (sedative). ? A medicine to numb the area (local anesthetic). ? A medicine to make you fall asleep (general anesthetic). ? Long needles will be inserted into your lower back. Your health care provider will use a type of X-ray (fluoroscopy) to guide the needles to the right spot. The needles will be guided to the place where the nerves exit the backbone. ? The position of the needles will be tested. If they are in the right spot, your toes or feet may move. You may feel a tingling in your legs. ? The electrodes will be inserted through the needles and into your body. ? The electrodes will be anchored in place close to your sacral nerves. ? Small incisions will be made under the skin in your upper buttocks. The sacral nerve stimulator device will be placed in this area. ? The ends of the electrodes that attach to the stimulator will be guided under your skin. They will extend from your sacral nerves, where they are anchored, to the stimulator device. They will then be attached to the device. ? Your health care provider will program the rate at which the nerve stimulator will deliver the electronic pulses. ? The incisions will be closed with stitches (sutures) or danya. ? A bandage (dressing) will be placed over the incision area. The procedure may vary among health care providers and hospitals. What happens (more content not included)... Normal [facility] Provider Letteron 09-09-2022 Provider Letter (Inserted Image. Shelly ble to display) September 09, 2022 MORALES LEE [address] [place] [address] MORALES LEE 1975 Dear Morales Lee , We have been trying to reach you with no success. It is important that you return our call upon receiving this letter. Also, at the time of your call, please provide us with your current information. Thank you for your prompt attention to this matter. Sincerely, [facility] [address] [address] [facility] Operative Reporton Operative Report [id number]:127 [facility] Lab Reportson 08-26-2022 Lab Reports [id number]:127 [facility] Covid-19 PCR (CVDTB)on 08-06 SARS-CoV-2 (COVID-19) RNA ADRIÁN+probe Ql (Unsp spec) Not detected Normal NOT DETECTED [facility] Comment on above: Result Comment: When diagnostic testing is negative, the possibility of a false negative should be considered in the context of a patient's recent exposures and the presence of clinical signs and symptoms consistent with SARS-CoV-2. This test is not yet approved or cleared by the [place] FDA. When there are no FDA-approved or cleared tests available, and other criteria are met, FDA can make tests available under an emergency access mechanism called an Emergency Use Authorization (EUA). The EUA for this test is supported by the Animal Behaviorist of Health and Human Service's declaration that circumstances exist to justify the emergency use of in vitro diagnostics for the detection and/or diagnosis of the virus that causes COVID-19. This EUA will remain in effect for the duration of the COVID-19 declaration justifying emergency of IVDs, unless it is terminated or revoked by the FDA (after which the test may no longer be used). Performed By: #### U MICRO, ERUR #### [facility] [address] [place] [address] Dr. Alfredo Lizama CBC AUTO DIFFon 08-24-2022 BASO # 0.1 103/ul Normal 0.0-0.1 [facility] Comment on above: Performed By: #### C BC #### [facility] [address] [place] [address] Dr. Alfredo Lizama Basophils/100 WBC (Bld) 0.8 % Normal 0.2-2.0 [facility] Comment on above: Performed By: #### C BC #### [facility] [address] [place] [address] Dr. Alfredo Lizama EO # 0.3 103/ul Normal 0.0-0.7 [facility] Comment on above: Performed By: #### C BC #### [facility] [address] [place] [address] Dr. Alfredo Lizama Eosinophils/100 WBC (Bld) 3.1 % Normal 0.9-7.0 [facility] Comment on above: Performed By: #### C BC #### [facility] [address] [place] [address] Dr. Alfredo Lizama Erythrocyte distribution width (RBC) [Ratio] 13.4 % Normal 11.0-15.0 [facility] Comment on above: Performed By: #### C BC #### [facility] [address] [place] [address] Dr. Alfredo Lizama Hematocrit (Bld) [Volume fraction] 47.2 % Normal 36.0-48.0 [facility] Comment on above: Performed By: #### C BC #### [facility] [address] [place] [address] Dr. Alfredo Lizama Hemoglobin (Bld) [Mass/Vol] 15.6 g/dL Normal 12.0-16.0 [facility] Comment on above: Performed By: #### C BC #### [facility] [address] [place] [address] Dr. Alfredo Lizama IG # 0.02 10e3/ul Normal 0.00-0.03 [facility] Comment on above: Performed By: #### C BC #### [facility] [address] [place] [address] Dr. Alfredo Lizama IG % 0.2 % Normal 0.0-0.5 [facility] Comment on above: Performed By: #### C BC #### [facility] [address] [place] [address] Dr. Alfredo Lizama LYMPH # 4.4 103/ul Critically high 1.2-3.8 [facility] Comment on above: Performed By: #### C BC #### [facility] [address] [place] [address] Dr. Alfredo Lizama Lymphocytes/100 WBC (Bld) 42.3 % Normal 20.5-60.0 [facility] Comment on above: Performed By: #### C BC #### [facility] [address] [place] [address] Dr. Alfredo Lizama MANUAL DIFF REQ NO Normal [facility] Comment on above: Performed By: #### C BC #### [facility] [address] [place] [address] Dr. Alfredo Lizama MCH (RBC) [Entitic mass] 28.8 pg Normal 26.7-34.0 [facility] Comment on above: Performed By: #### C BC #### [facility] [address] [place] [address] Dr. Alfredo Lizama MCHC (RBC) [Mass/Vol] 33.1 g/dL Normal 29.9-35.2 [facility] Comment on above: Performed By: #### C BC #### [facility] [address] [place], [place] [address] Dr. Alfredo Lizama MCV (RBC) [Entitic vol] 87.2 fL Normal 81.0-99.0 [facility] Comment on above: Performed By: #### C BC #### [facility] [address] [place] [address] Dr. Alfredo Lizama MONO # 0.6 103/ul Normal 0.3-0.8 [facility] Comment on above: Performed By: #### C BC #### [facility] [address] [place] [address] Dr. Alfredo Lizama Monocytes/100 WBC (Bld) 5.3 % Normal 1.7-12.0 [facility] Comment on above: Performed By: #### C BC #### [facility] [address] [place] [address] Dr. Alfredo Lizama NEUT # 5.0 103/ul Normal 1.4-6.5 [facility] Comment on above: Performed By: #### C BC #### [facility] [address] [place] [address] Dr. Alfredo Lizama Neutrophils/100 WBC (Bld) 48.3 % Normal 43.0-75.0 [facility] Comment on above: Performed By: #### C BC #### [facility] [address] [place] [address] Dr. Alfredo Lizama Platelet mean volume (Bld) [Entitic vol] 9.9 fL Normal 9.5-13.5 [facility] Comment on above: Performed By: #### C BC #### [facility] [address] [place] [address] Dr. Alfredo Lizama PLT 298 103/ul Normal 150-450 [facility] Comment on above: Performed By: #### C BC #### [facility] [address] [place] [address] Dr. Alfredo Lizama RBC 5.41 106/ul Critically high 4.20-5.40 [facility] Comment on above: Performed By: #### C BC #### [facility] [address] [place] [address] Dr. Alfredo Lizama WBC 10.3 103/ul Normal 4.0-11.0 [facility] Comment on above: Performed By: #### C BC #### [facility] [address] [place] [address] Dr. Alfredo Lizama PROF CHEM 8 (BAS METB)on Anion gap [Moles/Vol] 14.3 mmol/L Normal [facility] Comment on above: Performed By: #### U MICRO, ERUR #### [facility] [address] [place] [address] Dr. Alfredo Lizama Calcium [Mass/Vol] 9.1 mg/dL Normal 8.5-10.1 [facility] Comment on above: Performed By: #### U MICRO, ERUR #### [facility] [address] [place] [address] Dr. Alfredo Lizama Chloride [Moles/Vol] 99 mmol/L Normal 98-107 [facility] Comment on above: Performed By: #### U MICRO, ERUR #### [facility] [address] [place] [address] Dr. Alfredo Lizama CO2 [Moles/Vol] 29.0 mmol/L Normal 21.0-32.0 [facility] Comment on above: Performed By: #### U MICRO, ERUR #### [facility] [address] [place] [address] Dr. Alfredo Lizama Creatinine [Mass/Vol] 0.70 mg/dL Normal 0.55-1.02 [facility] Comment on above: Performed By: #### U MICRO, ERUR #### [facility] [address] [place] [address] Dr. Alfredo Lizama EGFR-AF [place] >60 Normal >=60 [facility] Comment on above: Performed By: #### U MICRO, ERUR #### [facility] [address] [place] [address] Dr. Alfredo Lizama EGFR-NON AF [place] >60 Normal >=60 [facility] Comment on above: Performed By: #### U MICRO, ERUR #### [facility] [address] [place] [address] Dr. Alfredo Lizama Glucose [Mass/Vol] 121 mg/dL Critically high 74-106 [facility] Comment on above: Performed By: #### U MICRO, ERUR #### [facility] [address] [address] [address] Alfredo Lizama Potassium [Moles/Vol] 3.3 mmol/L Critically low 3.5-5.1 [facility] Comment on above: Performed By: #### U MICRO, ERUR #### [facility] [address] [address] [address] Alfredo Lizama Sodium [Moles/Vol] 139 mmol/L Normal 136-145 [facility] Comment on above: Performed By: #### U MICRO, ERUR #### [facility] [address] [place] [address] Dr. Alfredo Lizama Urea nitrogen [Mass/Vol] 5.0 mg/dL Critically low 7.0-18.0 [facility] Comment on above: Performed By: #### U MICRO, ERUR #### [facility] [address] [place] [address] Dr. Alfredo Lizama Urea nitrogen/Creatinine [Mass ratio] 7.1 mg/mg Normal [facility] Comment on above: Performed By: #### U MICRO, ERUR #### [facility] [address] [place] [address] Dr. Alfredo Lizama PROTIMEon 08-24-2022 INR Coag (PPP) [Relative time] 0.99 {INR} Normal [facility] Comment on above: Performed By: #### P T, PTT #### [facility] [address] [place] [address] Dr. Alfredo Lizama INR GUIDELINES SEE BELOW Normal [facility] Comment on above: Result Comment: MARY JO RED INR: 2.0 - 3.0 CONDITIONS NOT LISTED BELOW 2.5 - 3.5 FOR PROSTHETIC HEART VALVE REPLACEMENT 2.5 - 3.5 RECURRENT THROMBOSIS Performed By: #### P T, PTT #### [facility] [address] [place] [address] Dr. Alfredo Lizama PT Coag (PPP) [Time] 10.7 s Normal 9.0-11.6 [facility] Comment on above: Performed By: #### P T, PTT #### [facility] [id number] Alfredo Lizama PTTon 08-24-2022 aPTT Coag (Bld) [Time] 31.7 s Normal 22.3-36.2 [facility] Comment on above: Performed By: #### P T, PTT #### [facility] [id number] Alfredo Lizama Physician Orderon 08-24-2022 Physician Order [id number]:127 Normal [facility] Retail - Clinical Noteon Retail - Clinical Note [id number]:127 Normal [facility] Patient Educationon 07-16-20 Patient Education Urology Urinary Incontinence Urinary incontinence refers to a condition in which a person is unable to control where and when to pass urine. A person with this condition will urinate when he or she does not mean to (involuntarily). What are the causes? This condition may be caused by: ? Medicines. ? Infections. ? Constipation. ? Overactive bladder muscles. ? Weak bladder muscles. ? Weak pelvic floor muscles. These muscles provide support for the bladder, intestine, and, in women, the uterus. ? Enlarged prostate in men. The prostate is a gland near the bladder. When it gets too big, it can pinch the urethra. With the urethra blocked, the bladder can weaken and lose the ability to empty properly. ? Surgery. ? Emotional factors, such as anxiety, stress, or post-traumatic stress disorder (PTSD). ? Pelvic organ prolapse. This happens in women when organs shift out of place and into the vagina. This shift can prevent the bladder and urethra from working properly. What increases the risk? The following factors may make you more likely to develop this condition: ? Older age. ? Obesity and physical inactivity. ? and childbirth. ? Menopause. ? Diseases that affect the nerves or spinal cord (neurological diseases). ? Long-term (chronic) coughing. This can increase pressure on the bladder and pelvic floor muscles. What are the signs or symptoms? Symptoms may vary depending on the type of urinary incontinence you have. They include: ? A sudden urge to urinate, but passing urine involuntarily before you can get to a bathroom (urge incontinence). ? Suddenly passing urine with any activity that forces urine to pass, such as coughing, laughing, exercise, or sneezing (stress incontinence). ? Needing to urinate often, but urinating only a small amount, or constantly dribbling urine (overflow incontinence). ? Urinating because you cannot get to the bathroom in time due to a physical disability, such as arthritis or injury, or communication and thinking problems, such as Alzheimer disease (functional incontinence). How is this diagnosed? This condition may be diagnosed based on: ? Your medical history. ? A physical exam. ? Tests, such as: ? Urine tests. ? X-rays of your kidney and bladder. ? Ultrasound. ? CT scan. ? Cystoscopy. In this procedure, a health care provider inserts a tube with a light and camera (cystoscope) through the urethra and into the bladder in order to check for problems. ? Urodynamic testing. These tests assess how well the bladder, urethra, and sphincter can store and release urine. There are different types of urodynamic tests, and they vary depending on what the test is measuring. To help diagnose your condition, your health care provider may recommend that you keep a log of when you urinate and how much you urinate. How is this treated? Treatment for this condition depends on the type of incontinence that you have and its cause. Treatment may include: ? Lifestyle changes, such as: ? Quitting smoking. ? Maintaining a healthy weight. ? Staying active. Try to get 150 minutes of moderate-intensity exercise every week. Ask your health care provider which activities are safe for you. ? Eating a healthy diet. ? Avoid high-fat foods, like fried foods. ? Avoid refined carbohydrates like white bread and white rice. ? Limit how much alcohol and caffeine you drink. ? Increase your fiber intake. Foods such as fresh fruits, vegetables, beans, and whole grains are healthy sources of fiber. ? Pelvic floor muscle exercises. ? Bladder training, such as lengthening the amount of time between bathroom breaks, or using the bathroom at regular intervals. ? Using techniques to suppress bladder urges. This can include distraction techniques or controlled breathing exercises. ? Medicines to relax the bladder muscles and prevent bladder spasms. ? Medicines to help slow or prevent the growth of a man's prostate. ? Botox injections. These can help relax the bladder muscles. ? Using pulses of electricity to help change bladder reflexes (electrical nerve stimulation). ? For women, using a certified medical transcriptionist to prevent urine leaks. This is a small, tampon-like, disposable device that is inserted into the urethra. ? Injecting collagen or carbon beads (bulking agents) into the urinary sphincter. These can help thicken tissue and close the bladder opening. ? Surgery. Follow these instructions at home: Lifestyle ? Limit alcohol and caffeine. These can fill your bladder quickly and irritate it. ? Keep yourself clean to help prevent odors and skin damage. Ask your doctor about special skin creams and cleansers that can protect the skin from urine. ? Consider wearing pads or adult diapers. Make sure to change them regularly, and always change them right after experiencing incontinence. General instructions ? Take ddkh-kqf-bebttzi and prescription medicines only as (more content not included)... Normal [facility] Pre-Certification Formon Pre-Certification Form [id number]:127 Normal [facility] Urology Office/Clinic Noteon 07-16-2022 Urology Office/Clinic Note Chief Complaint Pt is here to consult for S/P tube placement HPI Staff Morales is a 47 y/o female here to discuss S/P tube placement. Pt has not had her alvares cath replaced sine May. Dysuria: _denies Hematuria: _denies Abdominal pain: _denies Flank pain: _denies History of Present Illness Tests reviewed: ER records. I have reviewed the previous health record information and history for this patient from Dr. Bingham. I have reviewed and verified the staff HPI to be accurate for this encounter. There have been no associated fever, chills, flank pain, or blood in the urine. Denies any urinary infections since last encounter. Review of Systems ROS - Provider Constitutional: denies weight loss, denies hot flashes. Eyes: denies eye problems. Gastrointestinal: denies nausea, denies vomiting. Cardiovascular: denies chest pain or angina. Integumentary: no dryness Musculoskeletal: moderate musculoskeletal symptoms ENMT: denies otolaryngeal symptoms. Respiratory: no shortness of breath. Heme/Lymph: denies easy bleeding tendency, denies easy bruising tendency. Psychiatric: no confusion, no anxiety. Genitourinary: See HPI. Physical Exam Vitals & Measurements HT: 61 in HT: 156 cm WT: 78 kg WT: 171.6 lb BMI: 32.05 General Appearance: alert , no acute distress, well nourished, well developed female. Wheelchair bound but able to transfer self to exam table Genitourinary: bladder nonpalpable, no flank pain. Low transverse scar. Scattered skin ulcers on abd. Vaginal examination: Vaginal mucosa: There is no vaginal atrophy The urethra is widely patent, orthotopic. There are no masses or lesions. Excess vaginal tissue around urethra There is no urethral hypermobility and ELEAZAR is seen. She is able to correctly identify her pelvic muscles with coaching, weak recruitment but much improved from prior Stage 2 anterior prolapse with valsava (-1), No significant posterior/apical prolapse 18Fr [address] catheter in place without bag Assessment/Plan Pt is here with her . 1. Urinary incontinence without sensory awareness (N39.42: Incontinence without sensory awareness) Pt states that she had worsening urinary incontinence since 2020 and complete urinary incontinence after back surgeries in September 2021. Discussed risks and benefits of suprapubic cath placement and that leakage would still occur given widely patent urethra secondary to traumatic alvares removals with balloon inflated. Cystoscopy and urodynamics on 01/11/2022: Small bladder capacity and widely patent bladder neck with constant leakage throughout the evaluation. No pelvic floor contraction on physical exam. DLPP 28 cm H20 at volume 103 mL, no sensory awareness of leak. Patient unable to void. Detrusor pressure flat throughout filling and leaking phases with elevated abd pressures. Residual volumes 20 to 68 mL after leakage. Discussed and explained urodynamics results from 01/11/22 again. Pt has not had her alvares cath replaced since May. -18Fr exchanged today without issue, 15ml in balloon with return of clear yellow urine, strong odor. prior alvares was calcified Discussed risks and benefits of sacral neuromodulation, Bulkamid and SPT - understanding she will still leak with SPT given patent bladder neck, hoping this will heal. Consider Bulkamid in future if still leaking, wants to avoid invasive procedures Pt and 's wish is for her sxs to become resolved enough for her to be able to do PT. -Will proceed with suprapubic catheter placement under anesthesia. Risks/benefits discussed including bowel injury, bleeding, pain, infection, anesthesia risks. Window seen on CT AP -There has been no blood in the urine and no evidence of fever, chills, or flank pain. The Alvares was changed in the office today with no difficulties, and flushes appropriately to ensure proper placement. 18 Fr catheter placed with large leg bag and cath lock. -Refill for Oxybutynin sent to pharmacy. -Rx for prophylaxis Keflex 500mg q12hrs x 2 sent to pharmacy. -Pt reports having a bowel movement every 3-5 days. Pt takes Miralax and fiber. Recommended pt. to increase fluid intake for urinary calcification around catheter Ordered: Insertion of temp indwelling bladder cath (alvares) simple 64232 2. Intrinsic sphincter deficiency (ISD) (N36.42: Intrinsic sphincter deficiency (ISD)) Widely patent bladder neck with constant leakage, on exam today. Consider Bulkamid in future if still leaking after SPT, wants to avoid invasive procedures 3. Incomplete bladder emptying (R33.9: Retention of urine, unspecified) Discussed SNM in the future, may not be candidate given scar tissue and hardware from back surgery to S1. Will re-assess if needed in the future. Cont alvares q4w exchange SPT as above Orders: cephalexin, 500 mg = 1 cap(s), Oral, q12hr, # 2 cap(s), Refills(s) 0, [facility]acy: [facility] #[id number], 156, cm, 07/16/22 10:58:00 EST, Height/Length Dosing, 78, kg, 07/16/22 10:58:00 (more content not included)... Normal [facility] Comment on above: Result Comment: Elec tronically Signed By: Danya Bingham MD\.br\Date and Time Signed: 07/16/22 13:13 EST\.br\Electronically Co-Signed By: Yari Barron\.br\Date and Time Co-Signed: 07/16/22 12:16 EST Reminderson 07-06-2022 Reminders - From: Sandra Kessler To: EU - Recallnedra Bingham; Sandra Kessler; Sent: 03/26/2022 11:47:40 EDT Show up: 04/16/2022 11:47:00 EDT Subject: 4 week cath change Reminder/Recall schedule 4 week cath change at [facility]. alvares cath was changed at [facility] ER on 03/30/22, pt will be due 04/30/22 for next alvares cath change alvares was replaced on 04-08-22 at ER From: Nicole Kuo MA (EU - Recalls Zachery) To: EU - Clinical; Sent: 04/28/2022 15:01:31 EDT Show up: 04/28/2022 15:00:00 EDT Subject: RE: 4 week cath change Hey can you guys call her and get her scheduled for a cath change with [facility]? her catheter changes need to be done at [facility] because she needs lift/assistance. will schedule this faxed order/form to [facility] to be scheduled week of 05/10/22 per Jose at [facility] they have tried calling patient to schedule, no response. I tried calling patient today, no answer, unable to leave VM- phone just kept ringing. Patient had her catheter changed at [facility] on 05/07/22, due in 4 weeks unless s/p tube gets placed before then Order faxed to [facility] for patients cath change to be scheduled at [facility]. will track. From: Sandra Kessler To: EU - Vijay Bingham; Sent: 06/08/2022 08:26:14 EDT Show up: 06/08/2022 08:26:00 EDT Subject: RE: 4 week cath change other message in patient has upcoming appt 07-16-[address] Bingham, she still has not scheduled her cath change Normal [facility] Formson 06-08-2022 Forms [id number]:127 Normal [facility] Physician Orderon 06-08-2022 Physician Order [id number]:127 Normal [facility] BN SACRUM/COCCYX, MIN 2 VIEW Son 06-07-2022 BN SACRUM/COCCYX, MIN 2 VIEWS Patient Name: MORALES LEE STUDY: SPINE, LUMBOSACRAL; 2 OR 3 VIEWS; SACRUM/COCCYX, MIN 2 VIEWS; SPINE, THORACIC, 3 VIEWS; 06/07/2022 1:34 am INDICATION: history of fusion surgery with fall 1 month ago and worsening radicular pain and weakness . Radiographs requested to evaluate for hardware integrity. COMPARISON: Correlation with CT thoracolumbar spine 06/06/[address] lumbar spine 09/18/2021. Correlation with MRI thoracolumbar spine 09/20/2019. Thoracolumbar spine radiographs 09/08/2021. ACCESSION NUMBER(S): [id number]; [id number]; [id number] ORDERING CLINICIAN: CANDICE PEREZ FINDINGS: Three views of the thoracic spine, three views of the lumbosacral spine, and three views of the sacrum/coccyx were provided for interpretation, 9 images total. Partially visualized postsurgical changes are noted from posterior thoracic and lumbosacral spinal fusion of the visualized lumbar spine spanning from T5-S2. Postsurgical changes are seen from anterior spinal fusion of C6-7. Minimal amount of perihardware lucency is noted in an L3 pedicular screw on the cross-table lateral view, likely positional due to motion given only visualized in one view. No evidence of hardware fracture. Wedge-shaped compression deformities of L1 through L5, better characterized on prior CTs dating back to 09/18/2021. Surgical clips are noted projecting over the right upper quadrant. IMPRESSION: 1. Postsurgical changes from fusion of the thoracolumbosacral spine without definitive evidence of hardware failure. Minimal perihardware lucency noted of L3 pedicular screw is likely artifactual/positional given the finding is only visualized in one view and not visualized on most recent prior CT 06/06/2022. 2. Wedge-shaped compression deformities of L1 through L5, better characterized on prior CTs dating back to 09/18/2021. I personally reviewed the images/study and I agree with the findings as stated. Electronically signed by: GOMEZ JAMA MD Normal [facility] BN SPINE, LUMBOSACRAL; 2 OR 3 VIEWSon 06-07-2022 BN SPINE, LUMBOSACRAL; 2 OR 3 VIEWS Patient Name: MORALES LEE STUDY: SPINE, LUMBOSACRAL; 2 OR 3 VIEWS; SACRUM/COCCYX, MIN 2 VIEWS; SPINE, THORACIC, 3 VIEWS; 06/07/2022 1:34 am INDICATION: history of fusion surgery with fall 1 month ago and worsening radicular pain and weakness . Radiographs requested to evaluate for hardware integrity. COMPARISON: Correlation with CT thoracolumbar spine 06/06/[address] lumbar spine 09/18/2021. Correlation with MRI thoracolumbar spine 09/20/2019. Thoracolumbar spine radiographs 09/08/2021. ACCESSION NUMBER(S): [id number]; [id number]; [id number] ORDERING CLINICIAN: CANDICE PEREZ FINDINGS: Three views of the thoracic spine, three views of the lumbosacral spine, and three views of the sacrum/coccyx were provided for interpretation, 9 images total. Partially visualized postsurgical changes are noted from posterior thoracic and lumbosacral spinal fusion of the visualized lumbar spine spanning from T5-S2. Postsurgical changes are seen from anterior spinal fusion of C6-7. Minimal amount of perihardware lucency is noted in an L3 pedicular screw on the cross-table lateral view, likely positional due to motion given only visualized in one view. No evidence of hardware fracture. Wedge-shaped compression deformities of L1 through L5, better characterized on prior CTs dating back to 09/18/2021. Surgical clips are noted projecting over the right upper quadrant. IMPRESSION: 1. Postsurgical changes from fusion of the thoracolumbosacral spine without definitive evidence of hardware failure. Minimal perihardware lucency noted of L3 pedicular screw is likely artifactual/positional given the finding is only visualized in one view and not visualized on most recent prior CT 06/06/2022. 2. Wedge-shaped compression deformities of L1 through L5, better characterized on prior CTs dating back to 09/18/2021. I personally reviewed the images/study and I agree with the findings as stated. Electronically signed by: GOMEZ JAMA MD Normal [facility] BN SPINE, THORACIC, 3 VIEWSo n 06-07-2022 BN SPINE, THORACIC, 3 VIEWS Patient Name: MORALES LEE STUDY: SPINE, LUMBOSACRAL; 2 OR 3 VIEWS; SACRUM/COCCYX, MIN 2 VIEWS; SPINE, THORACIC, 3 VIEWS; 06/07/2022 1:34 am INDICATION: history of fusion surgery with fall 1 month ago and worsening radicular pain and weakness . Radiographs requested to evaluate for hardware integrity. COMPARISON: Correlation with CT thoracolumbar spine 06/06/[address] lumbar spine 09/18/2021. Correlation with MRI thoracolumbar spine 09/20/2019. Thoracolumbar spine radiographs 09/08/2021. ACCESSION NUMBER(S): [id number]; [id number]; [id number] ORDERING CLINICIAN: CANDICE PEREZ FINDINGS: Three views of the thoracic spine, three views of the lumbosacral spine, and three views of the sacrum/coccyx were provided for interpretation, 9 images total. Partially visualized postsurgical changes are noted from posterior thoracic and lumbosacral spinal fusion of the visualized lumbar spine spanning from T5-S2. Postsurgical changes are seen from anterior spinal fusion of C6-7. Minimal amount of perihardware lucency is noted in an L3 pedicular screw on the cross-table lateral view, likely positional due to motion given only visualized in one view. No evidence of hardware fracture. Wedge-shaped compression deformities of L1 through L5, better characterized on prior CTs dating back to 09/18/2021. Surgical clips are noted projecting over the right upper quadrant. IMPRESSION: 1. Postsurgical changes from fusion of the thoracolumbosacral spine without definitive evidence of hardware failure. Minimal perihardware lucency noted of L3 pedicular screw is likely artifactual/positional given the finding is only visualized in one view and not visualized on most recent prior CT 06/06/2022. 2. Wedge-shaped compression deformities of L1 through L5, better characterized on prior CTs dating back to 09/18/2021. I personally reviewed the images/study and I agree with the findings as stated. Electronically signed by: GOMEZ JAMA MD Normal [facility] CBC AND DIFFERENTIALon 06-07 % AUTOMATED IMMATURE GRAN 0.2 % Normal 0.0 - 0.9 [facility] Comment on above: Result Comment: Jaleesa ture Granulocyte Count (IG) includes promyelocytes, myelocytes and metamyelocytes but does not include bands. Percent differential counts (%) should be interpreted in the context of the absolute cell counts (cells/L). Performed By: #### R ENAL #### [facility] [address] [place] [address] Basophils (Bld) [#/Vol] 0.09 10*3/uL Normal 0.00 - 0.10 [facility] Comment on above: Performed By: #### R ENAL #### [facility] [address] [place] [address] Basophils/100 WBC (Bld) 1.0 % Normal 0.0 - 2.0 [facility] Comment on above: Performed By: #### R ENAL #### [facility] [address] [place] [address] Eosinophils (Bld) [#/Vol] 0.24 10*3/uL Normal 0.00 - 0.70 [facility] Comment on above: Performed By: #### R ENAL #### [facility] [address] [place] [address] Eosinophils/100 WBC (Bld) 2.6 % Normal 0.0 - 6.0 [facility] Comment on above: Performed By: #### R ENAL #### [facility] [address] [place] [address] Erythrocyte distribution width (RBC) [Ratio] 12.9 % Normal 11.5 - 14.5 [facility] Comment on above: Performed By: #### R ENAL #### [facility] [address] [place] [address] Hematocrit (Bld) [Volume fraction] 48.4 % High 36.0 - 46.0 [facility] Comment on above: Performed By: #### R ENAL #### [facility] [address] [place] [address] Hemoglobin (Bld) [Mass/Vol] 17.1 g/dL High 12.0 - 16.0 [facility] Comment on above: Performed By: #### R ENAL #### [facility] [address] [place] [address] Lymphocytes (Bld) [#/Vol] 2.93 10*3/uL Normal 1.20 - 4.80 [facility] Comment on above: Performed By: #### R ENAL #### [facility] [address] [place] [address] Lymphocytes/100 WBC (Bld) 31.9 % Normal 13.0 - 44.0 [facility] Comment on above: Performed By: #### R ENAL #### [facility] [address] [place] [address] MCHC (RBC) [Mass/Vol] 35.3 g/dL Normal 32.0 - 36.0 [facility] Comment on above: Performed By: #### R ENAL #### [facility] [address] [place] [address] MCV (RBC) [Entitic vol] 85 fL Normal 80 - 100 [facility] Comment on above: Performed By: #### R ENAL #### [facility] [address] [place] [address] Monocytes (Bld) [#/Vol] 0.36 10*3/uL Normal 0.10 - 1.00 [facility] Comment on above: Performed By: #### R ENAL #### [facility] [address] [place] [address] Monocytes/100 WBC (Bld) 3.9 % Normal 2.0 - 10.0 [facility] Comment on above: Performed By: #### R ENAL #### [facility] [address] [place] [address] Neutrophils (Bld) [#/Vol] 5.54 10*3/uL Normal 1.20 - 7.70 [facility] Comment on above: Performed By: #### R ENAL #### [facility] [address] [place] [address] Neutrophils/100 WBC (Bld) 60.4 % Normal 40.0 - 80.0 [facility] Comment on above: Performed By: #### R ENAL #### [facility] [address] [place] [address] NUCLEATED RBC 0.0 /100 WBC Normal 0.0-0.0 [facility] Comment on above: Performed By: #### R ENAL #### [facility] [address] [place] [address] Platelets (Bld) [#/Vol] 365 10*3/uL Normal 150 - 450 [facility] Comment on above: Performed By: #### R ENAL #### [facility] [address] [place] [address] RBC 5.69 x10E12/L High 4.00 - 5.20 [facility] Comment on above: Performed By: #### R ENAL #### [facility] [address] [place] [address] WBC (Bld) [#/Vol] 9.2 10*3/uL Normal 4.4 - 11.3 [facility] Comment on above: Performed By: #### R ENAL #### [facility] [address] [place] [address] COMPREHENSIVE PANELon 2021 Albumin [Mass/Vol] 4.6 g/dL Normal 3.4 - 5.0 [facility] Comment on above: Performed By: #### R ENAL #### [facility] [address] [place] [address] ALP [Catalytic activity/Vol] 192 U/L High 33 - 110 [facility] Comment on above: Performed By: #### R ENAL #### [facility] [address] [place] [address] ALT [Catalytic activity/Vol] 33 U/L Normal 7 - 45 [facility] Comment on above: Result Comment: Melly ents treated with Sulfasalazine may generate falsely decreased results for ALT. Performed By: #### R ENAL #### [facility] [address] [place] [address] Anion gap [Moles/Vol] 16 mmol/L Normal 10 - 20 [facility] Comment on above: Performed By: #### R ENAL #### [facility] [address] [place] [address] AST [Catalytic activity/Vol] 51 U/L High 9 - 39 [facility] Comment on above: Performed By: #### R ENAL #### [facility] [address] [place] [address] Bilirubin [Mass/Vol] 0.5 mg/dL Normal 0.0 - 1.2 [facility] Comment on above: Performed By: #### R ENAL #### [facility] [address] [place] [address] Calcium [Mass/Vol] 10.3 mg/dL Normal 8.6 - 10.6 [facility] Comment on above: Performed By: #### R ENAL #### [facility] [address] [place] [address] Chloride [Moles/Vol] 101 mmol/L Normal 98 - 107 [facility] Comment on above: Performed By: #### R ENAL #### [facility] [address] [place] [address] Creatinine [Mass/Vol] 0.61 mg/dL Normal 0.50 - 1.05 [facility] Comment on above: Performed By: #### R ENAL #### [facility] [address] [place] [address] eGFR FEMALE >90 Normal >90 [facility] Comment on above: Result Comment: CALC ULATIONS OF ESTIMATED GFR ARE PERFORMED USING THE 2020 CKD-EPI STUDY REFIT EQUATION WITHOUT THE RACE VARIABLE FOR THE IDMS-TRACEABLE CREATININE METHODS. https://jasn.asnjournals.org/content/early//ASN.4726491 988 Performed By: #### R ENAL #### [facility] [address] [place] [address] Glucose [Mass/Vol] 100 mg/dL High 74 - 99 [facility] Comment on above: Performed By: #### R ENAL #### [facility] [address] [place] [address] HCO3 (Bld) [Moles/Vol] 27 mmol/L Normal 21 - 32 [facility] Comment on above: Performed By: #### R ENAL #### [facility] [address] [place] [address] Potassium [Moles/Vol] 3.8 mmol/L Normal 3.5 - 5.3 [facility] Comment on above: Performed By: #### R ENAL #### [facility] [address] [place] [address] Protein [Mass/Vol] 8.2 g/dL Normal 6.4 - 8.2 [facility] Comment on above: Performed By: #### R ENAL #### [facility] [address] [place] [address] Sodium [Moles/Vol] 140 mmol/L Normal 136 - 145 [facility] Comment on above: Performed By: #### R ENAL #### [facility] [address] [place] [address] Urea nitrogen [Mass/Vol] 5 mg/dL Low 6 - 23 [facility] Comment on above: Performed By: #### R ENAL #### [facility] [address] [place] [address] Consult - Neuro-Surgeryon Consult - Neuro-Surgery Service: Service: Service: Surgery Consult: Consult requested by (Attending Name): ED Reason: radicular leg pain History of Present Illness: History Present Illness: HPI: Pt is a 47 yo F w/ h/o HTN, C6-7 ACDFF, T1 comp fx s/p T11-12 lami c/b worseing kyphosis 12/2020 s/p L1 transpedic decompression/SPOs/T5-L4 fusion, b/l ulnar neuorpathies p/w thoracic kyphosis, 09/16 BLE DVT US neg, 09/18 s/p extension of instrumentation to L5 to pelvis w/reduction of L4-5 dislocation, post op w/no dorsiflexion or toe wiggle, CT LS hardware in correct position, MRI TS/LS L4 stenosis, 09/21 s/p L4/5 lami, accessory kwame placement, 06/07 p/w 2mo radicular leg pain after fall. The patient's radiographic findings were personally reviewed and the following significant findings were identified: CT T/L spine: no acute fractures, hardware in posn T/L uprights: no hardware failure PMHx: as above PSHx: as above SHx: denies tobacco, etoh, prior opiate use FHx: non contributory ROS: 10 point ROS NEGATIVE other than per above HPI. Allergies: Seroquel: Seizure codeine: Unknown penicillin: Unknown Objective: Physical Exam by System: Constitutional: in no acute distress Eyes: OU 3R Head/Neck: atraumatic, normocephalic Respiratory/Thorax: airway intact, good chest expansion Cardiovascular: normal rate, regular rhythm Gastrointestinal: non-tender Neurological: NAD, A&Ox3 Cranial Nerves II-XII: PERRL, EOMI, Face symmetric, Facial SILT, Palate/Tongue midline and symmetric, shoulder shrugs symmetric, hearing intact to finger rubs bilaterally Motor: RUE D5, B5, T5, HG5, IO5 LUE D5, B5, T5, HG5, IO5 RLE HF 4+, KE4+, PF4-, DF3 LLE HF 4+, KE4+, PF3, DF4- Sensation: SILT throughout all extremities Psychological: mood appropriate Skin: Well perfused Assessment/Recommendations: Assessment: Pt is a 47 yo F w/ h/o HTN, C6-7 ACDFF, T1 comp fx s/p T11-12 lami c/b worseing kyphosis 12/2020 s/p L1 transpedic decompression/SPOs/T5-L4 fusion, b/l ulnar neuorpathies p/w thoracic kyphosis, 09/16 BLE DVT US neg, 09/18 s/p extension of instrumentation to L5 to pelvis w/reduction of L4-5 dislocation, post op w/no dorsiflexion or toe wiggle, CT LS hardware in correct position, MRI TS/LS L4 stenosis, 09/21 s/p L4/5 lami, accessory kwame placement, 06/07 p/w 2mo radicular leg pain after fall. Recs: CT T/L spine and uprights are reviewed and stable with no sign of hardware failure No additional imaging is needed. Dispo per ED Attestation: Note Completion: I am a: Resident/Fellow Attending AttestationI reviewed the resident/fellows documentation and discussed the patient with the resident/fellow. I agree with the resident/fellows medical decision making as documented in the note. Electronic Signatures: Fidel Maciel (Resident)) (Signed 07-Jun-2022 10:27) Authored: Service, History of Present Illness, Allergies, Objective, Assessment/Recommendations, Note Completion Perez Carlisle) (Signed 07-Jun-2022 11:22) Authored: Note Completion Co-Signer: Service, History of Present Illness, Allergies, Objective, Assessment/Recommendations, Note Completion Last Updated: 07-Jun-2022 11:22 by Perez Carlisle) Normal [facility] NR CT L-SPINE WO CONTRASTon 06-07-[address] L-SPINE WO CONTRAST Patient Name: MORALES LEE STUDY: CT T-SPINE WO CONTRAST; CT L-SPINE WO CONTRAST 06/06/2022 11:03 pm INDICATION: ok, Lie Flat: Yes COMPARISON: 09/20/2021 MRI and 09/18/2021 CT ACCESSION NUMBER(S): [id number]; [id number] ORDERING CLINICIAN: CANDICE PEREZ TECHNIQUE: Axial CT images of the thoracic and lumbar spine are obtained. Axial, coronal and sagittal reconstructions are provided for review. FINDINGS: Cervical Spine: Status prominent cervical lymph nodes, possibly reactive. No acute paraspinal soft tissue abnormality. Anterior cervical discectomy and fusion at C6-C7. Osseous spinal canal or neural foraminal stenosis. Minimal endplate osteophyte formation. Minimal disc height loss at C5-C6. Thoracic spine: Alignment: Thoracic alignment is within normal limits. Vertebrae/Disc Spaces: Status post anterior spinal fusion from the T5-lumbosacral posterior spinal fusion and laminectomy. The laminectomy postsurgical changes are below T7. There is minimal superior endplate height loss of T5 with associated sclerosis which appears similar to 12/24/2020 (allowing for differences in comparison between MRI and CT). There is slight lucency about the T5 pedicle screws suggesting a component of motion (coronal image 62 of 117). There is chronic T11 inferior endplate irregularity which is unchanged from 09/18/2021. There is no critical spinal canal stenosis. There is moderate left T11-T12 neural foraminal stenosis secondary to bulky fused facet joints and posterior disc osteophyte complex. The visualized thoracic posterior spinal fusion hardware is intact. Soft tissues: No acute soft tissue abnormality. There is dorsal paraspinal postsurgical scarring. Other findings: 0.3 cm pulmonary nodule at the medial right lung apex. Cholecystectomy. Small hiatal hernia. Lumbar spine: Beam hardening artifact related to spinal fusion hardware limits evaluation of the lumbar spine. Alignment: There is mild grade 1 anterolisthesis of T12 on L1. Slight focal kyphosis at T12-L1. slight spinal dextrocurvature is unchanged. Vertebrae/Disc Spaces: Chronic compression deformity of the L1 vertebral body with approximately 50% loss of anterior height. There are chronic superior endplate compression deformities of L1-L5 which are unchanged from 09/18/2021. Postsurgical changes related to thoracic-lumbosacral posterior spinal fusion extending from T5 through S2 and through the bilateral iliac bones. With pedicle screws and several vertical rods. Laminectomy postsurgical change at the lower thoracic spine extending to L2, and L4-L5. Minimal disc space narrowing. T12-L1: No spinal canal stenosis. There is spurring about the left T12-L1 neural foramen, likely contributing to moderate neural foraminal stenosis. L1-2: There is no significant central canal or neural foraminal stenosis. L2-3: There is no significant central canal or neural foraminal stenosis. L3-4: There is no significant central canal or neural foraminal stenosis. L4-5: There is no significant central canal or neural foraminal stenosis. L5-S1: No central canal stenosis. There is mild bilateral neural foraminal stenosis secondary to facet arthropathy and disc bulge. Prevertebral/Paraspinal Soft Tissues: Postsurgical change within the posterior paraspinal soft tissues. Other findings: The liver and spleen appear borderline enlarged, however are not completely included in the field of view. IMPRESSION: 1. No definite acute osseous abnormality. No high-grade osseous spinal canal or neural foraminal stenosis. Cmaa-ea-ealkuijm spinal canal and neural foraminal narrowing described in detail above. 2. Postsurgical changes related to T5-lumbosacral spinal fusion with intact visualized hardware. Metallic artifact obscures evaluation of the adjacent structures, particularly in the lumbar spine. Consider radiographic evaluation of the thoracic and lumbar spine to more completely evaluate hardware integrity. 3. Slight lucency about the T5 pedicle screws, likely secondary to motion. 4. Unchanged chronic collapse of L1 with approximately 50% loss of height. Unchanged superior endplate compression deformities of L2-L5. Unchanged chronic inferior endplate deformities of T11. Similar mild superior endplate deformities of T5. 5. The liver and spleen appear borderline enlarged, however are not completely included in the field of view. Electronically signed by: CELI MCNEIL, DO Normal [facility] NR CT T-SPINE WO CONTRASTon 06-07-[address] T-SPINE WO CONTRAST Patient Name: MORALES LEE STUDY: CT T-SPINE WO CONTRAST; CT L-SPINE WO CONTRAST 06/06/2022 11:03 pm INDICATION: ok, Lie Flat: Yes COMPARISON: 09/20/2021 MRI and 09/18/2021 CT ACCESSION NUMBER(S): [id number]; [id number] ORDERING CLINICIAN: CANDICE PEREZ TECHNIQUE: Axial CT images of the thoracic and lumbar spine are obtained. Axial, coronal and sagittal reconstructions are provided for review. FINDINGS: Cervical Spine: Status prominent cervical lymph nodes, possibly reactive. No acute paraspinal soft tissue abnormality. Anterior cervical discectomy and fusion at C6-C7. Osseous spinal canal or neural foraminal stenosis. Minimal endplate osteophyte formation. Minimal disc height loss at C5-C6. Thoracic spine: Alignment: Thoracic alignment is within normal limits. Vertebrae/Disc Spaces: Status post anterior spinal fusion from the T5-lumbosacral posterior spinal fusion and laminectomy. The laminectomy postsurgical changes are below T7. There is minimal superior endplate height loss of T5 with associated sclerosis which appears similar to 12/24/2020 (allowing for differences in comparison between MRI and CT). There is slight lucency about the T5 pedicle screws suggesting a component of motion (coronal image 62 of 117). There is chronic T11 inferior endplate irregularity which is unchanged from 09/18/2021. There is no critical spinal canal stenosis. There is moderate left T11-T12 neural foraminal stenosis secondary to bulky fused facet joints and posterior disc osteophyte complex. The visualized thoracic posterior spinal fusion hardware is intact. Soft tissues: No acute soft tissue abnormality. There is dorsal paraspinal postsurgical scarring. Other findings: 0.3 cm pulmonary nodule at the medial right lung apex. Cholecystectomy. Small hiatal hernia. Lumbar spine: Beam hardening artifact related to spinal fusion hardware limits evaluation of the lumbar spine. Alignment: There is mild grade 1 anterolisthesis of T12 on L1. Slight focal kyphosis at T12-L1. slight spinal dextrocurvature is unchanged. Vertebrae/Disc Spaces: Chronic compression deformity of the L1 vertebral body with approximately 50% loss of anterior height. There are chronic superior endplate compression deformities of L1-L5 which are unchanged from 09/18/2021. Postsurgical changes related to thoracic-lumbosacral posterior spinal fusion extending from T5 through S2 and through the bilateral iliac bones. With pedicle screws and several vertical rods. Laminectomy postsurgical change at the lower thoracic spine extending to L2, and L4-L5. Minimal disc space narrowing. T12-L1: No spinal canal stenosis. There is spurring about the left T12-L1 neural foramen, likely contributing to moderate neural foraminal stenosis. L1-2: There is no significant central canal or neural foraminal stenosis. L2-3: There is no significant central canal or neural foraminal stenosis. L3-4: There is no significant central canal or neural foraminal stenosis. L4-5: There is no significant central canal or neural foraminal stenosis. L5-S1: No central canal stenosis. There is mild bilateral neural foraminal stenosis secondary to facet arthropathy and disc bulge. Prevertebral/Paraspinal Soft Tissues: Postsurgical change within the posterior paraspinal soft tissues. Other findings: The liver and spleen appear borderline enlarged, however are not completely included in the field of view. IMPRESSION: 1. No definite acute osseous abnormality. No high-grade osseous spinal canal or neural foraminal stenosis. [id number] spinal canal and neural foraminal narrowing described in detail above. 2. Postsurgical changes related to T5-lumbosacral spinal fusion with intact visualized hardware. Metallic artifact obscures evaluation of the adjacent structures, particularly in the lumbar spine. Consider radiographic evaluation of the thoracic and lumbar spine to more completely evaluate hardware integrity. 3. Slight lucency about the T5 pedicle screws, likely secondary to motion. 4. Unchanged chronic collapse of L1 with approximately 50% loss of height. Unchanged superior endplate compression deformities of L2-L5. Unchanged chronic inferior endplate deformities of T11. Similar mild superior endplate deformities of T5. 5. The liver and spleen appear borderline enlarged, however are not completely included in the field of view. Electronically signed by: DO Andrei TOURE [facility] Provider Note - ED Care Diaz sitionon 06-07-2022 Provider Note - ED Care Transition ED Care Transition: Chart Review: ED NOTES ED NOTES: Received this patient in signout at 0700. Please see previous provider's note for detailed H&P. Briefly, this is a 47-year-old female being evaluated emergency department for back pain. Plan at the time of signout was to obtain MRI for worsening back pain and follow-up on neurosurgical recommendations Under my care neurosurgery determined that MRI was not needed at this time. Plan was for outpatient follow-up. Patient's pain was controlled and she was discharged from the emergency department in stable condition. Discussed with attending physician Arie Buchanan PGY-2 Emergency Medicine CLINICAL IMPRESSION Diagnosis/Annotation: ED Dx Name:Chronic back pain Code:M54.9 Disposition: discharged ATTESTATION Attestation: I saw and evaluated the patient. I personally obtained the schofield and critical portions of the history and physical exam or was physically present for schofield and critical portions performed by the resident/fellow. I reviewed the resident/fellows documentation and discussed the patient with the resident/fellow. I agree with the resident/fellows medical decision making as documented in the residents note CRITICAL CARE TIME Is this a critically ill patient: no Electronic Signatures: Arie Buchanan (Resident)) (Signed 09-Jun-2022 00:04) Authored: ED Notes, Clinical Impression, Attestation, Chart Review, Scores Yony Aguirre () (Signed 21-Jun-2022 06:18) Authored: Attestation, Chart Review Co-Signer: ED Notes, Clinical Impression, Attestation, Chart Review, Scores Last Updated: 21-Jun-2022 06:18 by Yony Aguirre () Normal [facility] Provider Note - ED v3on 10-0 Provider Note - ED v3 Provider Note: Chart Review: ED NOTES ED NOTES: The patient is a 47-year-old female past medical history of multiple back surgeries including lumbar spinal fusion who presented to the emergency department with acute on chronic worsening of her back pain. Since her surgeries in September the patient states that her back pain has been severe. She has been unable to ambulate during this time. She has also endorsing incontinence that is longstanding. She states that she has not been back to the hospital since her surgeries. She denies any fevers, chills, or saddle anesthesia. She has not had any recent instrumentation of the spine. The patient notes that her pain and immobility worsened after a ground-level fall approximately 1 month ago. Full 10 point review of systems is reviewed with the patient and is negative unless stated in HPI. Physical Exam: Appearance: Alert, oriented , cooperative, in no acute distress. Well nourished & well hydrated. Skin: Intact, dry skin, no lesions, rash, petechiae or purpura. Eyes: PERRLA, EOMs intact, Conjunctiva pink with no redness or exudates. Cornea & anterior chamber are clear, Eyelids without lesions. No scleral icterus. ENT: Hearing grossly intact. External auditory canals patent, tympanic membranes intact with visible landmarks. Nares patent, mucus membranes moist. Dentition without lesions. Pharynx clear, uvula midline. Neck: Supple, without meningismus. Thyroid not palpable. Trachea at midline. No lymphadenopathy. Pulmonary: Clear bilaterally with good chest wall excursion. No rales, rhonchi or wheezing. No accessory muscle use or stridor. Cardiac: Normal S1, S2 without murmur, rub, gallop or extrasystole. No JVD, Carotids without bruits. Abdomen: Soft, nontender, active bowel sounds. No palpable organomegaly. No rebound or guarding. No CVA tenderness. Genitourinary: Exam deferred. Musculoskeletal: There was midline T and L-spine tenderness to palpation without any deformities. Paraspinal muscle tenderness to palpation of the lumbar and thoracic spine as well. Positive straight leg raise test on the right. Neurological: Cranial nerves II through XII are grossly intact, finger-nose touch is normal, normal sensation, no weakness, no focal findings identified. Psychiatric: Appropriate mood and affect. MDM/ED course: The patient is a 47-year-old female past medical history of multiple back surgeries including lumbar and thoracic spinal fusion who presented with an acute on chronic worsening of low back pain and function after ground-level fall approximately 1 month ago. Her vital signs show mild hypertension otherwise normal. Her exam was remarkable for positive straight leg test on the right and some midline thoracic and lumbar tenderness to palpation without any noted deformities. Her pain was controlled and CTs of the lumbar and thoracic spine were ordered. This did not show any fractures or spinal cord compression. The hardware is not well visualized with CTs and so radiology advised plain films as well these were ordered and showed no abnormality with the hardware either. Neurosurgery was consulted who advised we order MRIs of the lumbar and thoracic spine which was ordered. These were still pending at the time my signout. She was signed out to incoming team providers in stable condition. This patient was discussed with Dr. Fritz who agrees with the clinical decision making Will MD [facility], PGY2 HISTORY OF PRESENTING ILLNESS MORALES is a 47 year old Female and was seen by me at 06-Jun-2022 19:43. Triage Information: Most recent Vital Sign Value Date Temp (F): 98.2 06-06-2022 19:04 Temp (C): 36.8 06-06-2022 19:04 Heart Rate (beats/min): 87 06-06-2022 19:04 Respirations (breaths/min): 18 06-06-2022 19:04 SpO2 (%): 97 06-06-2022 19:04 BP Systolic (mm Hg): 142 06-06-2022 19:04 BP Diastolic (mm Hg): 78 06-06-2022 19:04 PAST MEDICAL HISTORY ALLERGIES/INTOLERANCES: Allergy Allergen: Seroquel Type: Drug Reaction: Seizure Allergen: codeine Type: Drug Reaction: Unknown Allergen: penicillin Type: Drug Reaction: Unknown HEALTH HISTORY: No documented data. OUTPATIENT MEDICATIONS: Home Medications Review Status for Reconciliation: N/A Med Status: Patient Currently Takes Medications Drug Name: lisinopril 20 mg oral tablet Instructions: 1 tab(s) oral once a day Drug Name: acetaminophen 325 mg oral tablet Instructions: 2 tab(s) orally every 6 hours, as needed while having post operative pain Drug Name: furosemide 20 mg oral tablet Instructions: 2 tab(s) orally once a day, As Needed Drug Name: Valium 5 mg oral tablet Instructions: 1 tab(s) orally every 8 hours, As Needed Drug Name: LEFT AFO Instructions: -Orthotics to fit ICD 10: M21.37 Drug Name: RIGHT AFO Instructions: - Orthotics to fit - M21.37 (more content not included)... Normal [facility] Triage - EDon 06-06-2022 Triage - ED Quick Triage: Are You no Have You Given In The Last 6 Weeksno Are You Currently Breastfeedingno Chart Review: ARRIVAL INFORMATION Mode of Arrival: pedestrian CHIEF COMPLAINT MORALES LEE is a Female patient with a chief complaint of back pain. Other Complaints: patient has had recent falls over the past month post back surgery. has been having worsening numbness and tinging down her bilateral legs along with back pain Triage Date/Time: 06-Jun-2022 19:04 VIKRAM: 3 Vital Signs: Temperature: 98.2F ( 36.8C) Blood Pressure: 142/78 Mean: Heart Rate: 87 Respiratory Rate: 18 Pulse Oximetry: 97% on room air, no respiratory support. Height: 5 feet 2.00 inches. 157.4 CM Weight: 190.0 pounds. Calculated 86.2 kg. (stated) Calculated BMI (kg/m2): 34.793 Calculated BSA (m2) 1.94 [place] Coma Scale: Best Eye Response: (E4) spontaneous Best Motor Response: (M6) obeys commands Best Verbal Response: (V5) oriented Chris Score: 15 Mask applied: yes Patient has homicidal thoughts: no Risk Screens Suicide Risk Screen In the Past Month: Have you wished you were or wished you could go to sleep and not wake up no In the Past Month: Have you had any actual thoughts of killing yourself no In Your Lifetime: Have you ever done anything, started to do anything, or prepared to do anything to end your life no Gu Fall Scale Screening Has the patient fallen before (or is the patient in the ED as a result of a fall) has had a fall Does the patient have an impaired gait has impaired gait Is the patient cognitively impaired not cognitively impaired Gu Fall Scale History of falling (immediate or previous) yes (25) Secondary Diagnosis yes (15) Intravenous Therapy/ Heparin/Saline Lock no (0) Gait/Transferring weak (10) Ambulatory Aids crutches/walker/cane (15) Mental Status oriented to own ability (0) Gu Fall Risk Score: 65 Interventions: Gu Fall Interventions: HIGH INTERVENTIONS *Low and Moderate Interventions Plus: * supervised toileting at all times TRAVEL HISTORY Travel History Coronavirus Screening: no exposure or symptoms Travel Exposure History: NO travel to International locations in the past 30 days PAIN Pain Scale Used: MARCIAL Past Medical History: Past Medical History Reviewedyes Electronic Signatures: Meghan Chavez (EVARISTO) (Signed 06-Jun-2022 19:07) Entered: Risk Screens, Pain, Travel History, Chart Review, Scores, Past Medical History Authored: Quick Triage, Risk Screens, Pain, Travel History, Chart Review, Scores, Past Medical History Last Updated: 06-Jun-2022 19:07 by Meghan Chavez) Normal [facility] Physician Orderon 05-17-2022 Physician Order [id number]:127 Normal [facility] ED Note-Physicianon 05-11-20 ED Note-Physician [id number]#[id number]:127 Normal [facility] Lab Reportson 05-11-2022 Lab Reports [id number]:127 Normal [facility] RAD - CT Reporton 05-11-2022 RAD - CT Report [id number]:127 Normal [facility] CULTURE URINEon 05-10-2022 CULTURE URINE Isolate 1 Escherichia coli >100,000 cfu/mL of ORGANISM 1 Escherichia coli ANTIBIOTIC M.I.C RX STATUS Ampicillin <=2 S F Ampicillin/Sulbactam <=2 S F Piperacillin/Tazobactam <=4 S F Cefazolin <=4 S F Ceftazidime <=1 S F Ceftriaxone <=1 S F Ertapenem <=0.5 S F Imipenem <=0.25 S F Amikacin <=2 S F Gentamicin <=1 S F Tobramycin <=1 S F Ciprofloxacin >=4 R F Levofloxacin >=8 R F Nitrofurantoin <=16 S F Trimethoprim/Sulfamethoxazo le <=20 S F Normal [facility] Comment on above: Performed By: #### U MICRO, ERUR #### [facility] [address] [place] [address] Dr. Alfredo Lizama CBC AUTO DIFFon 05-07-2022 BASO # 0.1 103/ul Normal 0.0-0.1 [facility] Comment on above: Performed By: #### U MICRO, ERUR #### [facility] [address] [place] [address] Dr. Alfredo Lizama Basophils/100 WBC (Bld) 0.5 % Normal 0.2-2.0 [facility] Comment on above: Performed By: #### U MICRO, ERUR #### [facility] [address] [place] [address] Dr. Alfredo Lizama EO # 0.4 103/ul Normal 0.0-0.7 [facility] Comment on above: Performed By: #### U MICRO, ERUR #### [facility] [address] [place] [address] Dr. Alfredo Lizama Eosinophils/100 WBC (Bld) 3.5 % Normal 0.9-7.0 [facility] Comment on above: Performed By: #### U MICRO, ERUR #### [facility] [address] [place] [address] Dr. Alfredo Lizama Erythrocyte distribution width (RBC) [Ratio] 13.2 % Normal 11.0-15.0 [facility] Comment on above: Performed By: #### U MICRO, ERUR #### [facility] [address] [place] [address] Dr. Alfredo Lizama Hematocrit (Bld) [Volume fraction] 44.0 % Normal 36.0-48.0 [facility] Comment on above: Performed By: #### U MICRO, ERUR #### [facility] [address] [place] [address] Dr. Alfredo Lizama Hemoglobin (Bld) [Mass/Vol] 14.8 g/dL Normal 12.0-16.0 [facility] Comment on above: Performed By: #### U MICRO, ERUR #### [facility] [address] [place] [address] Dr. Alfredo Lizama IG # 0.03 10e3/ul Normal 0.00-0.03 [facility] Comment on above: Performed By: #### U MICRO, ERUR #### [facility] [address] [address] [address] Alfredo Lizama IG % 0.2 % Normal 0.0-0.5 [facility] Comment on above: Performed By: #### U MICRO, ERUR #### [facility] [address] [address] [address] Alfredo Lizama LYMPH # 3.8 103/ul Normal 1.2-3.8 [facility] Comment on above: Performed By: #### U MICRO, ERUR #### [facility] [address] [address] [address] Alfredo Lizama Lymphocytes/100 WBC (Bld) 31.3 % Normal 20.5-60.0 [facility] Comment on above: Performed By: #### U MICRO, ERUR #### [facility] [address] [address] [address] Alfredo Lizama MANUAL DIFF REQ NO Normal [facility] Comment on above: Performed By: #### U MICRO, ERUR #### [facility] [address] [address] [address] Alfredo Lizama MCH (RBC) [Entitic mass] 28.8 pg Normal 26.7-34.0 [facility] Comment on above: Performed By: #### U MICRO, ERUR #### [facility] [address] [address] [address] Alfredo Lizama MCHC (RBC) [Mass/Vol] 33.6 g/dL Normal 29.9-35.2 [facility] Comment on above: Performed By: #### U MICRO, ERUR #### [facility] [address] [address] [address] Alfredo Lizama MCV (RBC) [Entitic vol] 85.8 fL Normal 81.0-99.0 [facility] Comment on above: Performed By: #### U MICRO, ERUR #### [facility] [address] [address] [address] Alfredo Lizama MONO # 0.7 103/ul Normal 0.3-0.8 [facility] Comment on above: Performed By: #### U MICRO, ERUR #### [facility] [address] [address] [address] Alfredo Lizama Monocytes/100 WBC (Bld) 5.8 % Normal 1.7-12.0 [facility] Comment on above: Performed By: #### U MICRO, ERUR #### [facility] [address] [place] [address] Dr. Alfredo Lizama NEUT # 7.1 103/ul Critically high 1.4-6.5 [facility] Comment on above: Performed By: #### U MICRO, ERUR #### [facility] [address] [place] [address] Dr. Alfredo Lizama Neutrophils/100 WBC (Bld) 58.7 % Normal 43.0-75.0 [facility] Comment on above: Performed By: #### U MICRO, ERUR #### [facility] [address] [place] [address] Dr. Alfredo Lizama Platelet mean volume (Bld) [Entitic vol] 9.6 fL Normal 9.5-13.5 [facility] Comment on above: Performed By: #### U MICRO, ERUR #### [facility] [address] [place] [address] Dr. Alfredo Lizama PLT 269 103/ul Normal 150-450 [facility] Comment on above: Performed By: #### U MICRO, ERUR #### [facility] [address] [place] [address] Dr. Alfredo Lizama RBC 5.13 106/ul Normal 4.20-5.40 [facility] Comment on above: Performed By: #### U MICRO, ERUR #### [facility] [address] [place] [address] Dr. Alfredo Lizama WBC 12.2 103/ul Critically high 4.0-11.0 [facility] Comment on above: Performed By: #### U MICRO, ERUR #### [facility] [address] [place] [address] ABD/PELV W Paul 09-02-[address] ABD/PELV W CON EXAMINATION: CT ABD/ PELV W CON, 05/07/2022 12:31 PM EDT HISTORY: UNSPECIFIED ABDOMINAL PAIN COMPARISON: CT abdomen pelvis 11/30/2017 TECHNIQUE: CT of the abdomen, and pelvis was performed following administration of IV contrast. Delayed post contrasted sequences were also obtained through the pelvis. Oral contrast was not administered prior to the examination. Dose reduction techniques were achieved by using automated exposure control and/or adjustment of mA and/or kV according to patient size and/or use of iterative reconstruction technique. FINDINGS: Lung Bases: Elevation of the right hemidiaphragm. Liver: Normal. Biliary tree: Unchanged mild prominence of the central intrahepatic bile ducts and common bile duct at least in part relating to cholecystectomy status, grossly unchanged since 11/22/2017; there is unchanged abrupt although smooth tapering of the distal common bile duct at the papilla. Gallbladder: Cholecystectomy Spleen: Upper limits of normal in size, unchanged. Pancreas: Normal. Adrenal glands: Normal. Kidneys and ureters: Normal. Bladder: There is a Alvares catheter in place within the urinary bladder, the catheter tip appears to penetrate the posterolateral bladder wall on the right (image 64 series 6) with associated rather marked asymmetric bladder wall thickening in this region, and with perivesicular stranding, suggesting cystitis; there are few foci of intraluminal gas likely relating to catheterization. There are no findings of bladder leak on the delayed sequences. Reproductive organs: Hysterectomy. No suspicious adnexal mass. Gastrointestinal tract: Nondilated. No findings of acute appendicitis. Moderate colonic stool. Small hiatal hernia. Peritoneum/retroperitoneum: Trace free fluid in the pelvis with perivesicular inflammatory changes above. Vasculature: Patent. No abdominal aortic aneurysm. Lymph nodes: Normal. Abdominal wall: Procedure change about the anterior abdominal wall. Musculoskeletal: Degenerative change of the spine, with unchanged multilevel chronic compression deformities. Redemonstrated laminectomy changes and posterior fusion of the visualized thoracic through sacral spine. IMPRESSION: 1. Alvares catheter within the urinary bladder, the catheter tip appears to penetrate into the the posterolateral bladder wall on the right, with associated asymmetric bladder wall thickening and perivesicular stranding in this region suggesting cystitis. No bladder leak on the delayed sequences. 2. Unchanged prominence of the central intrahepatic bile ducts and common bile duct at least in part relating to cholecystectomy status, ampullary narrowing/stricture is not technically excluded; findings are stable since 11/22/2017. Electronically authenticated by: KORIN STANLEY Date: 2022-05-07 14:00 Normal [facility] ER URINE PROFILEon 2 Bilirubin Ql (U) Negative Normal NEGATIVE [facility] Comment on above: Performed By: #### U MICRO, ERUR #### [facility] [address] [address] [address] Alfredo Lizama Clarity (U) CLOUDY Abnormal CLEAR [facility] Comment on above: Performed By: #### U MICRO, ERUR #### [facility] [address] [address] [address] Alfredo Lizama Color (U) LT. YELLOW Normal YELLOW [facility] Comment on above: Performed By: #### U MICRO, ERUR #### [facility] [address] [place] [address] Dr. Alfredo Lizama ERUAHD A micrscopic examina tion will be performed if indicated. Normal [facility] Comment on above: Performed By: #### U MICRO, ERUR #### [facility] [address] [address] [address] Alfredo Lizama Glucose Ql (U) Negative Normal NEGATIVE [facility] Comment on above: Performed By: #### U MICRO, ERUR #### [facility] [address] [address] [address] Alfredo Lizama Hemoglobin Ql (U) LARGE Abnormal NEGATIVE [facility] Comment on above: Performed By: #### U MICRO, ERUR #### [facility] [address] [address] [address] Alfredo Lizama Ketones Ql (U) Negative Normal NEGATIVE [facility] Comment on above: Performed By: #### U MICRO, ERUR #### [facility] [address] [address] [address] Alfredo Lizama LEUKOCYTES MODERATE Abnormal NEGATIVE [facility] Comment on above: Performed By: #### U MICRO, ERUR #### [facility] [address] [place] [address] Dr. Alfredo Lizama Nitrite Ql (U) Positive Abnormal NEGATIVE [facility] Comment on above: Performed By: #### U MICRO, ERUR #### [facility] [address] [place] [address] Dr. Alfredo Lizama pH (U) 8.5 [pH] Normal 5-9 [facility] Comment on above: Performed By: #### U MICRO, ERUR #### [facility] [address] [place] [address] Dr. Alfredo Lizama Protein (U) [Mass/Vol] 100 mg/dL Abnormal NEGATIVE/ TRACE [facility] Comment on above: Performed By: #### U MICRO, ERUR #### [facility] [address] [place] [address] Dr. Alfredo Lizama SPEC GRAVITY 1.015 Normal 1.005-<=1.0 25 [facility] Comment on above: Performed By: #### U MICRO, ERUR #### [facility] [address] [place] [address] Dr. Alfredo Lizama UR MICRO IND INDICATED Normal [facility] Comment on above: Performed By: #### U MICRO, ERUR #### [facility] [address] [place] [address] Dr. Alfredo Lizama Urobilinogen Qn (U) 1.0 {Tesha'U}/dL Normal 0.2 - 1. 0 [facility] Comment on above: Performed By: #### U MICRO, ERUR #### [facility] [address] [place] [address] Dr. Alfredo Lizama PROF CHEM 8 (BAS METB)on Anion gap [Moles/Vol] 12.0 mmol/L Normal [facility] Comment on above: Performed By: #### U MICRO, ERUR #### [facility] [address] [place] [address] Dr. Alfredo Lizama Calcium [Mass/Vol] 8.6 mg/dL Normal 8.5-10.1 [facility] Comment on above: Performed By: #### U MICRO, ERUR #### [facility] [address] [place] [address] Dr. Alfredo Lizama Chloride [Moles/Vol] 101 mmol/L Normal 98-107 [facility] Comment on above: Performed By: #### U MICRO, ERUR #### [facility] [address] [address] [address] Alfredo Lizama CO2 [Moles/Vol] 28.0 mmol/L Normal 21.0-32.0 [facility] Comment on above: Performed By: #### U MICRO, ERUR #### [facility] [address] [address] [address] Alfredo Lizama Creatinine [Mass/Vol] 0.77 mg/dL Normal 0.55-1.02 [facility] Comment on above: Performed By: #### U MICRO, ERUR #### [facility] [address] [place] [address] Dr. Alfredo Lizama EGFR-AF [place] >60 Normal >=60 [facility] Comment on above: Performed By: #### U MICRO, ERUR #### [facility] [address] [place] [address] Dr. Alfredo Lizama EGFR-NON AF [place] >60 Normal >=60 [facility] Comment on above: Performed By: #### U MICRO, ERUR #### [facility] [address] [place] [address] Dr. Alfredo Lizama Glucose [Mass/Vol] 96 mg/dL Normal 74-106 [facility] Comment on above: Performed By: #### U MICRO, ERUR #### [facility] [address] [place] [address] Dr. Alfredo Lizama Potassium [Moles/Vol] 4.0 mmol/L Normal 3.5-5.1 [facility] Comment on above: Performed By: #### U MICRO, ERUR #### [facility] [address] [place] [address] Dr. Alfredo Lizama Sodium [Moles/Vol] 137 mmol/L Normal 136-145 [facility] Comment on above: Performed By: #### U MICRO, ERUR #### [facility] [address] [place] [address] Dr. Alfredo Lizama Urea nitrogen [Mass/Vol] 7.0 mg/dL Normal 7.0-18.0 [facility] Comment on above: Performed By: #### U MICRO, ERUR #### [facility] [address] [place] [address] Dr. Alfredo Lizama Urea nitrogen/Creatinine [Mass ratio] 9.1 mg/mg Normal [facility] Comment on above: Performed By: #### U MICRO, ERUR #### [facility] [address] [place] [address] Dr. Alfredo Lizama URINE MICROSCOPIC ONLYon BACTERIA MODERATE Abnormal NONE SEEN [facility] Comment on above: Performed By: #### U MICRO, ERUR #### [facility] [address] [place] [address] Dr. Alfredo Lizama Bacteria identified Cx Nom (U) INDICATED Normal [facility] Comment on above: Performed By: #### U MICRO, ERUR #### [facility] [address] [place] [address] Dr. Alfredo Lizama CAST NONE SEEN Normal NONE SEEN [facility] Comment on above: Performed By: #### U MICRO, ERUR #### [facility] [address] [place] [address] Dr. Alfredo Lizama Crystals LM Nom (Urine sed) NONE SEEN Normal NONE SEEN [facility] Comment on above: Performed By: #### U MICRO, ERUR #### [facility] [address] [place] [address] Dr. Alfredo Lizama Epithelial cells LM Ql (Urine sed) FEW Abnormal NONE SEEN /RARE [facility] Comment on above: Performed By: #### U MICRO, ERUR #### [facility] [address] [place] [address] Dr. Alfredo Lizama MUCOUS NONE SEEN Normal NONE SEEN [facility] Comment on above: Performed By: #### U MICRO, ERUR #### [facility] [address] [place] [address] Dr. Alfredo Lizama RBC 2-5 Abnormal 0-2 [facility] Comment on above: Performed By: #### U MICRO, ERUR #### [facility] [address] [place] [address] Dr. Alfredo Lizama WBC - Abnormal NONE SEEN [facility] Comment on above: Performed By: #### U MICRO, ERUR #### [facility] [address] [place], [place] [id number] Dr. Alfredo Lizama Formson 04-29-2022 Forms [id number]:127 Normal [facility] ED Note-Physicianon 04-14-20 22 ED Note-Physician [id number]:127 Normal [facility] CULTURE URINEon 04-10-2022 CULTURE URINE Isolate 1 Proteus mirabilis >100,000 cfu/mL of Isolate 2 Escherichia coli >100,000 cfu/mL of ORGANISM 1 Proteus mirabilis ANTIBIOTIC M.I.C RX STATUS Ampicillin <=2 S F Ampicillin/Sulbactam <=2 S F Piperacillin/Tazobactam <=4 S F Cefazolin <=4 S F Ceftazidime <=1 S F Ceftriaxone <=1 S F Ertapenem <=0.5 S F Imipenem 0.5 S F Amikacin <=2 S F Gentamicin <=1 S F Tobramycin <=1 S F Ciprofloxacin <=0.25 S F Levofloxacin <=0.12 S F Nitrofurantoin 64 R F Trimethoprim/Sulfamethoxazo le <=20 S F ORGANISM 2 Escherichia coli ANTIBIOTIC M.I.C RX STATUS Ampicillin <=2 S F Ampicillin/Sulbactam <=2 S F Piperacillin/Tazobactam <=4 S F Cefazolin <=4 S F Ceftazidime <=1 S F Ceftriaxone <=1 S F Ertapenem <=0.5 S F Imipenem <=0.25 S F Amikacin <=2 S F Gentamicin <=1 S F Tobramycin <=1 S F Ciprofloxacin <=0.25 S F Levofloxacin <=0.12 S F Nitrofurantoin <=16 S F Trimethoprim/Sulfamethoxazo le <=20 S F Normal [facility] Comment on above: Performed By: #### U MICRO, ERUR #### [facility] [address] [address] [address] Alfredo Lizama ER URINE PROFILEon 2 Bilirubin Ql (U) Negative Normal NEGATIVE [facility] Comment on above: Performed By: #### U MICRO, ERUR #### [facility] [address] [place] [address] Dr. Alfredo Lizama Clarity (U) CLOUDY Abnormal CLEAR [facility] Comment on above: Performed By: #### U MICRO, ERUR #### [facility] [address] [address] [address] Alfredo Lizama Color (U) YELLOW Normal YELLOW [facility] Comment on above: Performed By: #### U MICRO, ERUR #### [facility] [address] [place] [address] Dr. Alfredo Lizama ERUAHD A micrscopic examina tion will be performed if indicated. Normal [facility] Comment on above: Performed By: #### U MICRO, ERUR #### [facility] [address] [place] [address] Dr. Alfredo Lizama Glucose Ql (U) Negative Normal NEGATIVE [facility] Comment on above: Performed By: #### U MICRO, ERUR #### [facility] [address] [place] [address] Dr. Alfredo Lizama Hemoglobin Ql (U) SMALL Abnormal NEGATIVE [facility] Comment on above: Performed By: #### U MICRO, ERUR #### [facility] [address] [address] [address] Alfredo Lizama Ketones Ql (U) Negative Normal NEGATIVE [facility] Comment on above: Performed By: #### U MICRO, ERUR #### [facility] [address] [address] [address] Alfredo Lizama LEUKOCYTES LARGE Abnormal NEGATIVE [facility] Comment on above: Performed By: #### U MICRO, ERUR #### [facility] [address] [place] [address] Dr. Alfredo Lizama Nitrite Ql (U) Negative Normal NEGATIVE [facility] Comment on above: Performed By: #### U MICRO, ERUR #### [facility] [address] [place] [address] Dr. Alfredo Lizama pH (U) 7.0 [pH] Normal 5-9 [facility] Comment on above: Performed By: #### U MICRO, ERUR #### [facility] [address] [place] [address] Dr. Alfredo Lizama SPEC GRAVITY <=1.005 Abnormal 1.005-<=1.0 25 [facility] Comment on above: Performed By: #### U MICRO, ERUR #### [facility] [address] [place] [address] Dr. Alfredo Lizama UA PROTEIN Negative Normal NEGATIVE/ TRACE [facility] Comment on above: Performed By: #### U MICRO, ERUR #### [facility] [address] [place] [address] Dr. Alfredo Lizama UR MICRO IND INDICATED Normal [facility] Comment on above: Performed By: #### U MICRO, ERUR #### [facility] [address] [place] [address] Dr. Alfredo Lizama Urobilinogen Qn (U) 0.2 {Tesha'U}/dL Normal 0.2 - 1. 0 [facility] Comment on above: Performed By: #### U MICRO, ERUR #### [facility] [address] [place] [address] Dr. Alfredo Lizama URINE MICROSCOPIC ONLYon BACTERIA MODERATE Abnormal NONE SEEN [facility] Comment on above: Performed By: #### U MICRO, ERUR #### [facility] [address] [place] [address] Dr. Alfredo Lizama Bacteria identified Cx Nom (U) INDICATED Normal [facility] Comment on above: Performed By: #### U MICRO, ERUR #### [facility] [address] [place] [address] Dr. Alfredo Lizama CAST NONE SEEN Normal NONE SEEN [facility] Comment on above: Performed By: #### U MICRO, ERUR #### [facility] [address] [place] [address] Dr. Alfredo Lizama Crystals LM Nom (Urine sed) NONE SEEN Normal NONE SEEN [facility] Comment on above: Performed By: #### U MICRO, ERUR #### [facility] [address] [address] [address] Alfredo Lizama Epithelial cells LM Ql (Urine sed) FEW Abnormal NONE SEEN /RARE [facility] Comment on above: Performed By: #### U MICRO, ERUR #### [facility] [address] [address] [address] Alfredo Lizama MUCOUS NONE SEEN Normal NONE SEEN [facility] Comment on above: Performed By: #### U MICRO, ERUR #### [facility] [address] [address] Dr. Alfredo Lizama RBC 5-10 Abnormal 0-2 [facility] Comment on above: Performed By: #### U MICRO, ERUR #### [facility] [address] [place] [address] Dr. Alfredo Lizama WBC (U) [#/Vol] /uL Abnormal NONE SEEN [facility] Comment on above: Performed By: #### U MICRO, ERUR #### [facility] [address] [place] [address] Dr. Alfredo Lizama ED Note-Physicianon 04-05-20 ED Note-Physician [id number]:127 Normal [facility] Formson 03-26-2022 Forms [id number]:127 Normal [facility] Basic Metabolic Panelon 11-03 Calcium [Mass/Vol] 8.9 mg/dL Normal 8.2-10.[address] [facility] Comment on above: Performed By: #### C BC, CMP, PAB #### [facility] [address] [place] [address] [place] Chloride [Moles/Vol] 101 mmol/L Normal 95-114 [facility] Comment on above: Performed By: #### C BC, CMP, PAB #### [facility] [address] CO2 [Moles/Vol] 29.0 mmol/L Normal 22.0-30.0 [facility] Comment on above: Performed By: #### C DARIUS PATEL, PAB #### [address] Creatinine [Mass/Vol] 0.48 mg/dL Normal 0.44-1.03 [facility] Comment on above: Performed By: #### C DARIUS PATEL, PAB #### [address] Creatinine Clr Calc Pharmacy 150.29 [facility] Comment on above: Result Comment: PERF ORMED BY: [place] [address] PATHOLOGIST CLIENT ACCOUNT MANAGER HUY COX M.D. Performed By: #### C DARIUS PATEL, PAB #### [address] Estimated GFR ( July > 60 [facility] Comment on above: Result Comment: GFR estimated reference range: According to KDOQI guidelines, <60 ml/min/1.73m2 is sufficient to diagnose a patient with chronic kidney disease. Performed By: #### C DARIUS PATEL, PAB #### [address] Estimated GFR (Non- Am > 60 [facility] Comment on above: Performed By: #### C DARIUS PATEL, PAB #### [address] Glucose [Mass/Vol] 111 mg/dL High 70-[address] [facility] Comment on above: Result Comment: Nitro om Glucose Reference Range is dependent on time and content of last meal. Glucose of more than 200 mg/dL in a nonstressed, ambulatory subject supports the diagnosis of Diabetes Mellitus. ADA recommended reference range Performed By: #### C DARIUS PATEL, PAB #### [address] Potassium [Moles/Vol] 3.6 mmol/L Normal 3.5-5.1 [facility] Comment on above: Performed By: #### C BC, CMP, PAB #### [facility] [address] Sodium [Moles/Vol] 138 mmol/L Normal 136-[address] [facility] Comment on above: Performed By: #### C BC, CMP, PAB #### [facility] [address] Urea nitrogen [Mass/Vol] 10 mg/dL Normal 9-23 [facility] Comment on above: Performed By: #### C BC, CMP, PAB #### [facility] [address] Complete Blood Count Auto Di ffon 11-19-2021 Basophils (Bld) [#/Vol] 0.1 10*3/uL Normal 0.0-0.2 [facility] Comment on above: Result Comment: PERF ORMED BY: [place] [address] PATHOLOGIST CLIENT ACCOUNT MANAGER HUY COX M.D. Performed By: #### C BC, CMP, PAB #### [facility] [address] Basophils/100 WBC (Bld) 0.8 % Normal . [facility] Comment on above: Performed By: #### C BC, CMP, PAB #### [facility] [address] Eosinophils (Bld) [#/Vol] 0.4 10*3/uL Normal 0.0-0.45 [facility] Comment on above: Performed By: #### C BC, CMP, PAB #### [facility] [address] [place] [address] [place] Eosinophils/100 WBC (Bld) 5.8 % Normal . [facility] Comment on above: Performed By: #### C BC, CMP, PAB #### [facility] [address] Erythrocyte distribution width (RBC) [Ratio] 14.3 % Normal 11.9-15.3 [facility] Comment on above: Performed By: #### C BC, CMP, PAB #### [address] Hematocrit (Bld) [Volume fraction] 36.0 % Normal 34.0-46.4 [facility] Comment on above: Performed By: #### C BC, CMP, PAB #### [address] Hemoglobin (Bld) [Mass/Vol] 11.9 g/dL Normal 11.8-15.4 [facility] Comment on above: Performed By: #### C BC, CMP, PAB #### [address] Lymphocytes (Bld) [#/Vol] 2.7 10*3/uL Normal 1.00-4.8 [facility] Comment on above: Performed By: #### C BC, CMP, PAB #### [address] Lymphocytes/100 WBC (Bld) 37.6 % Normal . [facility] Comment on above: Performed By: #### C BC, CMP, PAB #### [address] MCH (RBC) [Entitic mass] 28.1 pg Normal 24.7-34.3 [facility] Comment on above: Performed By: #### C BC, CMP, PAB #### [address] MCV (RBC) [Entitic vol] 85.3 fL Normal 80-100 [facility] Comment on above: Performed By: #### C BC, CMP, PAB #### [address] Mean Corpuscular HGB Conc 32.9 g/dL Normal 32.0-35.0 [facility] Comment on above: Performed By: #### C BC, CMP, PAB #### [address] Monocytes (Bld) [#/Vol] 0.4 10*3/uL Normal 0.0-0.8 [facility] Comment on above: Performed By: #### C BC, CMP, PAB #### [facility] [address] [place] [address] [place] Monocytes/100 WBC (Bld) 5.2 % Normal . [facility] Comment on above: Performed By: #### C BC, CMP, PAB #### [facility] [address] [place] [address] [place] Neutrophils (Bld) [#/Vol] 3.7 10*3/uL Normal 1.8-7.7 [facility] Comment on above: Performed By: #### C BC, CMP, PAB #### [facility] [address] [place] [address] [place] Neutrophils/100 WBC (Bld) 50.6 % Normal . [facility] Comment on above: Performed By: #### C BC, CMP, PAB #### [facility] [address] [place] [address] [place] Nucleated RBC/100 WBC (Bld) [Ratio] 0.0 % Normal 0-0.5 [facility] Comment on above: Performed By: #### C BC, CMP, PAB #### [facility] [address] [place] [address] [place] Platelet mean volume (Bld) [Entitic vol] 7.6 fL Normal 6.3-10.7 [facility] Comment on above: Performed By: #### C BC, CMP, PAB #### [facility] [address] [place] [address] [place] Platelets (Bld) [#/Vol] 252 10*3/uL Normal 150-450 [facility] Comment on above: Performed By: #### C BC, CMP, PAB #### [facility] [address] [place] [address] [place] RBC (Bld) [#/Vol] 4.22 10*6/uL Normal 3.60-5.00 [facility] Comment on above: Performed By: #### C BC, CMP, PAB #### [facility] [address] [place] [address] [place] WBC (Bld) [#/Vol] 7.2 10*3/uL Normal 4.5-11.[address] [facility] Comment on above: Performed By: #### C BC, CMP, PAB #### [address] Ammoniaon 11-11-2021 Ammonia (P) [Moles/Vol] 26 umol/L Normal 11-35 [facility] Comment on above: Result Comment: PERF ORMED BY: [place] [address] PATHOLOGIST CLIENT ACCOUNT MANAGER HUY COX M.D. Performed By: #### C BC, CMP, PAB #### [address] Hepatic Panelon 11-11-2021 Albumin [Mass/Vol] 3.0 g/dL Low 3.2-5.[address] [facility] Comment on above: Performed By: #### C BC, CMP, PAB #### [address] Albumin/Globulin [Mass ratio] 1.0 {ratio} Normal [facility] Comment on above: Performed By: #### C BC, CMP, PAB #### [address] ALP [Catalytic activity/Vol] 187 U/L High 32-92 [facility] Comment on above: Result Comment: PERF ORMED BY: [place] [address] PATHOLOGIST CLIENT ACCOUNT MANAGER HUY COX M.D. Performed By: #### C BC, CMP, PAB #### [facility] [address] [place] [address] ALT [Catalytic activity/Vol] 54 U/L Normal 10-60 [facility] Comment on above: Performed By: #### C BC, CMP, PAB #### [address] AST [Catalytic activity/Vol] 39 U/L Normal 10-42 [facility] Comment on above: Performed By: #### C BC, CMP, PAB #### [address] Bilirubin [Mass/Vol] 0.3 mg/dL Normal 0.3-1.2 [facility] Comment on above: Performed By: #### C BC, CMP, PAB #### [address] Bilirubin,Indirect Not performed Normal [facility] Comment on above: Performed By: #### C BC, CMP, PAB #### [address] Bilirubin.indirect [Mass/Vol] mg/dL Normal 0.0-0.4 [facility] Comment on above: Performed By: #### C BC, CMP, PAB #### [address] Globulin (S) [Mass/Vol] 3.0 g/dL Normal [facility] Comment on above: Performed By: #### C BC, CMP, PAB #### [address] Protein [Mass/Vol] 6.0 g/dL Low 6.1-7.[address] [facility] Comment on above: Performed By: #### C BC, CMP, PAB #### [address] Hepatitis Acute Panelon 03-0 HBsAg Screen Negative Normal Negative [facility] Comment on above: Performed By: #### C BC, CMP, PAB #### [address] Hepatitis A Antibody IgM Negative Normal Negative [facility] Comment on above: Performed By: #### C BC, CMP, PAB #### [address] Hepatitis B Core Antibody IgM Negative Normal Negative [facility] Comment on above: Performed By: #### C BC, CMP, PAB #### [address] Hepatitis C Virus Antibody 0.2 Normal 0.0-0.9 [facility] Comment on above: Performed By: #### C JORGE, CMP, PAB #### [facility] [address] [place] [address] Interpretation Hepatitis C Normal . [facility] Comment on above: Result Comment: Nega tive Not infected with HCV, unless recent infection is suspected or other evidence exists to indicate HCV infection. Performed at: - [facility] [id number] Machine Cloth Examiner: Pedro Luis José PhD, Phone: [phone] PERFORMED BY: [place] [address] PATHOLOGIST CLIENT ACCOUNT MANAGER HUY COX M.D. Performed By: #### C JORGE, DARIUS, PAB #### [address] US liveron 11-11-2021 liver [facility] [place] [address] [place] [address] Ultrasound Report Signed Patient: Morales Lee MR#: [id number] : 1975 Acct:[id number] Age/Sex: 46 / F ADM Date: 10/29/21 Loc: Room: 2Q1520-1 Type: ADM IN Attending Dr: Richard Acevedo MD Ordering Provider: LIZBETH Arteaga Date of Service: 11/11/21 US/US liver: elevated LFTs Copies to: LIZBETH Arteaga MD Liver ultrasound HISTORY: Elevated LFTs. Prior cholecystectomy. COMPARISON:None Common duct measures 12mm. Prominence of the common bile duct likely secondary to cholecystectomy. Normal echogenicity of the liver parenchyma identified. No hepatic mass identified. No intrahepatic biliary ductal dilatation identified. No gallstones or gallbladder sludge identified. No gallbladder wall thickening is seen. No pericholecystic fluid is identified. Visualized portion of the pancreatic head and neck unremarkable. No visible mass or ductal dilatation of pancreas identified. Normal blood flow of the main portal vein is identified. The liver has a length of15.4 cm. No RIGHT hydronephrosis identified. US/US liver IMPRESSION: Prominence of the common bile duct likely secondary to cholecystectomy. No intrahepatic biliary ductal dilatation. No discrete hepatic mass. Impression dictated by: Alexandru Pond M.D.11/11/2021 10:23 AM Dictation Location: [place] [address] Tech: Ermelinda Diaz Transcribed By: [facility] 11/11/21 1023 Dictated By: Alexandru Pond DO 11/11/21 1018 Signed By: 11/11/21 1023 Normal [facility] Complete Blood Count Auto Di ffon 11-10-2021 Basophils (Bld) [#/Vol] 0.1 10*3/uL Normal 0.0-0.2 [facility] Comment on above: Result Comment: PERF ORMED BY: [place] [address] PATHOLOGIST CLIENT ACCOUNT MANAGER HUY COX M.D. Performed By: #### C BC #### [address] Basophils/100 WBC (Bld) 1.2 % Normal . [facility] Comment on above: Performed By: #### C BC #### [address] Eosinophils (Bld) [#/Vol] 0.3 10*3/uL Normal 0.0-0.45 [facility] Comment on above: Performed By: #### C BC #### [address] Eosinophils/100 WBC (Bld) 5.9 % Normal . [facility] Comment on above: Performed By: #### C BC #### [address] Erythrocyte distribution width (RBC) [Ratio] 14.2 % Normal 11.9-15.3 [facility] Comment on above: Performed By: #### C BC #### [address] Hematocrit (Bld) [Volume fraction] 37.1 % Normal 34.0-46.4 [facility] Comment on above: Performed By: #### C BC #### [address] Hemoglobin (Bld) [Mass/Vol] 12.3 g/dL Normal 11.8-15.4 [facility] Comment on above: Performed By: #### C BC #### [address] Lymphocytes (Bld) [#/Vol] 2.0 10*3/uL Normal 1.00-4.8 [facility] Comment on above: Performed By: #### C BC #### [address] Lymphocytes/100 WBC (Bld) 36.5 % Normal . [facility] Comment on above: Performed By: #### C BC #### [address] MCH (RBC) [Entitic mass] 28.6 pg Normal 24.7-34.3 [facility] Comment on above: Performed By: #### C BC #### [address] MCV (RBC) [Entitic vol] 86.5 fL Normal 80-100 [facility] Comment on above: Performed By: #### C BC #### [address] Mean Corpuscular HGB Conc 33.1 g/dL Normal 32.0-35.0 [facility] Comment on above: Performed By: #### C BC #### [address] Monocytes (Bld) [#/Vol] 0.3 10*3/uL Normal 0.0-0.8 [facility] Comment on above: Performed By: #### C BC #### [place] [address] [place] Monocytes/100 WBC (Bld) 5.3 % Normal . [facility] Comment on above: Performed By: #### C BC #### [place] [address] [place] Neutrophils (Bld) [#/Vol] 2.8 10*3/uL Normal 1.8-7.7 [facility] Comment on above: Performed By: #### C BC #### [facility] [address] [place] [address] [place] Neutrophils/100 WBC (Bld) 51.1 % Normal . [facility] Comment on above: Performed By: #### C BC #### [facility] [address] Nucleated RBC/100 WBC (Bld) [Ratio] 0.1 % Normal 0-0.5 [facility] Comment on above: Performed By: #### C BC #### [address] Platelet mean volume (Bld) [Entitic vol] 7.8 fL Normal 6.3-10.7 [facility] Comment on above: Performed By: #### C BC #### [address] Platelets (Bld) [#/Vol] 214 10*3/uL Normal 150-450 [facility] Comment on above: Performed By: #### C BC #### [address] RBC (Bld) [#/Vol] 4.28 10*6/uL Normal 3.60-5.00 [facility] Comment on above: Performed By: #### C BC #### [address] WBC (Bld) [#/Vol] 5.4 10*3/uL Normal 4.5-11.[address] [facility] Comment on above: Performed By: #### C BC #### [address] Comprehensive Metabolic Pane shree 11-10-2021 Albumin [Mass/Vol] 2.9 g/dL Low 3.2-5.[address] [facility] Comment on above: Performed By: #### C BC, CMP, PAB #### [address] [place] [address] [place] Albumin/Globulin [Mass ratio] 0.9 {ratio} Normal [facility] Comment on above: Performed By: #### C BC, CMP, PAB #### [address] ALP [Catalytic activity/Vol] 201 U/L High 32-92 [facility] Comment on above: Performed By: #### C BC, CMP, PAB #### [address] ALT [Catalytic activity/Vol] 67 U/L High 10-60 [facility] Comment on above: Performed By: #### C BC, CMP, PAB #### [address] AST [Catalytic activity/Vol] 66 U/L High 10-42 [facility] Comment on above: Performed By: #### C BC, CMP, PAB #### [address] Bilirubin [Mass/Vol] 0.4 mg/dL Normal 0.3-1.2 [facility] Comment on above: Performed By: #### C BC, CMP, PAB #### [address] Calcium [Mass/Vol] 8.7 mg/dL Normal 8.2-10.[address] [facility] Comment on above: Performed By: #### C BC, CMP, PAB #### [place] [address] [place] Chloride [Moles/Vol] 100 mmol/L Normal 95-114 [facility] Comment on above: Performed By: #### C BC, CMP, PAB #### [facility] [address] [place] [address] CO2 [Moles/Vol] 26.4 mmol/L Normal 22.0-30.0 [facility] Comment on above: Performed By: #### C BC, CMP, PAB #### [facility] [address] [place] [address] Creatinine [Mass/Vol] 0.50 mg/dL Normal 0.44-1.03 [facility] Comment on above: Performed By: #### C BC, CMP, PAB #### [facility] [address] Creatinine Clr Calc Pharmacy 142.11 [facility] Comment on above: Result Comment: PERF ORMED BY: [place] [address] PATHOLOGIST CLIENT ACCOUNT MANAGER HUY COX M.D. Performed By: #### C BC, CMP, PAB #### [address] Estimated GFR ( July > 60 [facility] Comment on above: Result Comment: GFR estimated reference range: According to KDOQI guidelines, <60 ml/min/1.73m2 is sufficient to diagnose a patient with chronic kidney disease. Performed By: #### C BC CMP, PAB #### [address] Estimated GFR (Non- Am > 60 [facility] Comment on above: Performed By: #### C BC, CMP, PAB #### [address] Globulin (S) [Mass/Vol] 3.1 g/dL [facility] Comment on above: Performed By: #### C BC CMP, PAB #### [address] Glucose [Mass/Vol] 110 mg/dL High 70-[address] [facility] Comment on above: Result Comment: Nitro Glucose Reference Range is dependent on time and content of last meal. Glucose of more than 200 mg/dL in a nonstressed, ambulatory subject supports the diagnosis of Diabetes Mellitus. ADA recommended reference range Performed By: #### C BC, CMP, PAB #### [address] Potassium [Moles/Vol] 4.0 mmol/L Normal 3.5-5.1 [facility] Comment on above: Performed By: #### C BC, CMP, PAB #### [facility] [address] [place] [id number] [place] Protein [Mass/Vol] 6.0 g/dL Low 6.1-7.[address] [facility] Comment on above: Performed By: #### C BC, CMP, PAB #### [facility] [address] [place] [address] [place] Sodium [Moles/Vol] 136 mmol/L Normal 136-[address] [facility] Comment on above: Performed By: #### C BC, CMP, PAB #### [facility] [address] [place] [address] [place] Urea nitrogen [Mass/Vol] 8 mg/dL Low 9-23 [facility] Comment on above: Performed By: #### C BC, CMP, PAB #### [facility] [address] [place] [address] [place] Dipstick and Microscopicon 0 11-10-2021 Appearance (U) Turbid Critically abnormal Clear [facility] Comment on above: Order Comment: Name Collection Type:: Alvares Catheter Performed By: #### C BC, CMP, PAB #### [facility] [address] [place] [address] [place] Bacteria,Urine 3+ High None Seen [facility] Comment on above: Order Comment: Name Collection Type:: Alvares Catheter Performed By: #### C BC, CMP, PAB #### [facility] [address] [place] [address] [place] Bilirubin,Urine Negative Normal Negative [facility] Comment on above: Order Comment: Name Collection Type:: Alvares Catheter Performed By: #### C BC, CMP, PAB #### [facility] [address] [place] [address] [place] Color (U) Yellow Normal Yellow [facility] Comment on above: Order Comment: Name Collection Type:: Alvares Catheter Performed By: #### C BC, CMP, PAB #### [facility] [address] [place] [address] [place] Glucose Ql (U) Normal Normal Normal [facility] Comment on above: Order Comment: Name Collection Type:: Alvares Catheter Performed By: #### C BC, CMP, PAB #### [facility] [address] [place] [address] [place] Hyaline Casts,Urine None Seen Normal 0-1 [facility] Comment on above: Order Comment: Name Collection Type:: Alvares Catheter Performed By: #### C BC, CMP, PAB #### [facility] [address] Ketones Ql (U) Negative Normal Negative [facility] Comment on above: Order Comment: Name Collection Type:: Alvares Catheter Performed By: #### C BC, CMP, PAB #### [address] Leukocyte esterase Test strip Ql (U) 3+ High Negative [facility] Comment on above: Order Comment: Name Collection Type:: Alvares Catheter Performed By: #### C BC, CMP, PAB #### [address] Nitrite,Urine Positive High Negative [facility] Comment on above: Order Comment: Name Collection Type:: Alvares Catheter Performed By: #### C BC, CMP, PAB #### [place] [address] [place] Occult Blood,Urine 2+ High Negative [facility] Comment on above: Order Comment: Name Collection Type:: Alvares Catheter Result Comment: PERF ORMED BY: [place] [address] PATHOLOGIST CLIENT ACCOUNT MANAGER HUY COX M.D. Performed By: #### C BC, CMP, PAB #### [facility] [address] [place] [address] Other Casts,Urine None Seen Normal None Seen [facility] Comment on above: Order Comment: Name Collection Type:: Alvares Catheter Result Comment: PERF ORMED BY: [place] [address] PATHOLOGIST CLIENT ACCOUNT MANAGER HUY COX M.D. Performed By: #### C BC, CMP, PAB #### [facility] [address] [place] [address] [place] pH (U) 8.5 [pH] Normal 5.0-9.0 [facility] Comment on above: Order Comment: Name Collection Type:: Alvares Catheter Performed By: #### C BC, CMP, PAB #### [address] Protein,Urine Negative Normal Negative [facility] Comment on above: Order Comment: Name Collection Type:: Alvares Catheter Performed By: #### C BC, CMP, PAB #### [place] [address] [place] RBC,Urine 1-2 Normal 0-4 [facility] Comment on above: Order Comment: Name Collection Type:: Alvares Catheter Performed By: #### C BC, CMP, PAB #### [address] Specificy Clyo,Urine 1.006 Normal 1.001-1.030 [facility] Comment on above: Order Comment: Name Collection Type:: Alvares Catheter Performed By: #### C BC, CMP, PAB #### [place] [address] [place] Squamous Epithelial Cell,Urine 3-4 High 0-2 [facility] Comment on above: Order Comment: Name Collection Type:: Alvares Catheter Performed By: #### C BC, CMP, PAB #### [address] Triple Phosphate Crystal,Urine 2+ Normal [facility] Comment on above: Order Comment: Name Collection Type:: Alvares Catheter Performed By: #### C BC, CMP, PAB #### [place] [address] [place] Urobilinogen,Urine Normal Normal Normal [facility] Comment on above: Order Comment: Name Collection Type:: Alvares Catheter Performed By: #### C BC, CMP, PAB #### [place] [address] [place] WBC,Urine 20-49 High 0-4 [facility] Comment on above: Order Comment: Name Collection Type:: Alvares Catheter Performed By: #### C BC, CMP, PAB #### [facility] [address] [place] [address] Urine Cultureon 11-10-2021 Bacteria identified Cx Nom (U) ORGANISM: Providencia rettgeri (O:PRORET) [place] Count >100,000 Aerobic JOSE Charge (NUC86) SUSCEPTIBILITY ORGANISM: O:PRORET ANTIBIOTIC INTERPRETATION JOSE Amikacin S <16 Ampicillin R >16 Ampicillin/Sulbactam R >16/8 Aztreonam IB <4 Cefazolin R >16 Cefepime S <2 Ceftazidime IB <1 Ceftazidime/Avibactam S <8 Ceftriaxone IB <1 Ciprofloxacin S <1 Ertapenem S <0.5 Gentamicin S <4 Levofloxacin S <2 Meropenem S <1 Nitrofurantoin R >64 Piperacillin/Tazobactam IB <16 Tetracycline S <4 Tigecycline S <2 Tobramycin S <4 Trimethoprim/Sulfamethoxazo le R >2/38 S = SUSCEPTIBLE I = INTERMEDIATE R = RESISTANT BLANK = DATA NOT AVAILABLE, OR DRUG NOT ADVISABLE OR TESTED R* = RESISTANCE DUE TO EXTENDED SPECTRUM BETA-LACTAMASES ESBL = EXTENDED SPECTRUM BETA-LACTAMASE TFG = THYMIDINE-DEPENDENT STRAIN ARETHA = BETA-LACTAMASE POSITIVE IB = INDUCIBLE BETA-LACTAMASE. APPEARS IN PLACE OF 'S' WITH SPECIES KNOWN TO POSSESS INDUCIBLE BETA-LACTAMASES. POTENTIALLY THEY MAY BECOME RESISTANT TO ALL B-LACTAM DRUGS. PERFORMED BY: [place] [address] PATHOLOGIST CLIENT ACCOUNT MANAGER HUY COX M.D. Normal [facility] Comment on above: Performed By: #### C BC, CMP, PAB #### [facility] [address] [place] [address] Basic Metabolic Panelon 03-0 Calcium [Mass/Vol] 8.7 mg/dL Normal 8.2-10.[address] [facility] Comment on above: Performed By: #### B MP, CBC #### [address] Chloride [Moles/Vol] 102 mmol/L Normal 95-114 [facility] Comment on above: Performed By: #### B MP, CBC #### [address] CO2 [Moles/Vol] 25.5 mmol/L Normal 22.0-30.0 [facility] Comment on above: Performed By: #### B MP, CBC #### [facility] [address] Creatinine [Mass/Vol] 0.71 mg/dL Normal 0.44-1.03 [facility] Comment on above: Performed By: #### B MP, CBC #### [address] Creatinine Clr Calc Pharmacy 100.08 [facility] Comment on above: Result Comment: PERF ORMED BY: [place] [address] PATHOLOGIST CLIENT ACCOUNT MANAGER HUY COX M.D. Performed By: #### B MP, CBC #### [address] Estimated GFR ( July > 60 [facility] Comment on above: Result Comment: GFR estimated reference range: According to KDOQI guidelines, <60 ml/min/1.73m2 is sufficient to diagnose a patient with chronic kidney disease. Performed By: #### B MP, CBC #### [facility] [address] [place] [address] Estimated GFR (Non- Am > 60 [facility] Comment on above: Performed By: #### B MP, CBC #### [facility] [address] [place] [address] [place] Glucose [Mass/Vol] 104 mg/dL High 70-[address] [facility] Comment on above: Result Comment: Nitro Glucose Reference Range is dependent on time and content of last meal. Glucose of more than 200 mg/dL in a nonstressed, ambulatory subject supports the diagnosis of Diabetes Mellitus. ADA recommended reference range Performed By: #### B MP, CBC #### [address] Potassium [Moles/Vol] 4.1 mmol/L Normal 3.5-5.1 [facility] Comment on above: Performed By: #### B MP, CBC #### [address] Sodium [Moles/Vol] 137 mmol/L Normal 136-[address] [facility] Comment on above: Performed By: #### B MP, CBC #### [address] Urea nitrogen [Mass/Vol] 10 mg/dL Normal 9-23 [facility] Comment on above: Performed By: #### B MP, CBC #### [address] Complete Blood Count Auto Di ffon 11-06-2021 Basophils (Bld) [#/Vol] 0.1 10*3/uL Normal 0.0-0.2 [facility] Comment on above: Result Comment: PERF ORMED BY: [place] [address] PATHOLOGIST CLIENT ACCOUNT MANAGER HUY COX M.D. Performed By: #### B MP, CBC #### [address] Basophils/100 WBC (Bld) 0.8 % Normal . [facility] Comment on above: Performed By: #### B MP, CBC #### [address] Eosinophils (Bld) [#/Vol] 0.4 10*3/uL Normal 0.0-0.45 [facility] Comment on above: Performed By: #### B MP, CBC #### [address] Eosinophils/100 WBC (Bld) 5.5 % Normal . [facility] Comment on above: Performed By: #### B MP, CBC #### [address] Erythrocyte distribution width (RBC) [Ratio] 14.2 % Normal 11.9-15.3 [facility] Comment on above: Performed By: #### B MP, CBC #### [address] Hematocrit (Bld) [Volume fraction] 36.0 % Normal 34.0-46.4 [facility] Comment on above: Performed By: #### B MP, CBC #### [address] Hemoglobin (Bld) [Mass/Vol] 12.0 g/dL Normal 11.8-15.4 [facility] Comment on above: Performed By: #### B MP, CBC #### [address] Lymphocytes (Bld) [#/Vol] 2.4 10*3/uL Normal 1.00-4.8 [facility] Comment on above: Performed By: #### B MP, CBC #### [address] Lymphocytes/100 WBC (Bld) 35.2 % Normal . [facility] Comment on above: Performed By: #### B MP, CBC #### [address] MCH (RBC) [Entitic mass] 28.9 pg Normal 24.7-34.3 [facility] Comment on above: Performed By: #### B MP, CBC #### [address] MCV (RBC) [Entitic vol] 86.4 fL Normal 80-100 [facility] Comment on above: Performed By: #### B MP, CBC #### [address] Mean Corpuscular HGB Conc 33.4 g/dL Normal 32.0-35.0 [facility] Comment on above: Performed By: #### B MP, CBC #### [address] Monocytes (Bld) [#/Vol] 0.3 10*3/uL Normal 0.0-0.8 [facility] Comment on above: Performed By: #### B MP, CBC #### [facility] [address] [place] [address] [place] Monocytes/100 WBC (Bld) 4.8 % Normal . [facility] Comment on above: Performed By: #### B MP, CBC #### [facility] [address] [place] [address] [place] Neutrophils (Bld) [#/Vol] 3.7 10*3/uL Normal 1.8-7.7 [facility] Comment on above: Performed By: #### B MP, CBC #### [facility] [address] Neutrophils/100 WBC (Bld) 53.7 % Normal . [facility] Comment on above: Performed By: #### B MP, CBC #### [facility] [address] [place] [address] [place] Nucleated RBC/100 WBC (Bld) [Ratio] 0.0 % Normal 0-0.5 [facility] Comment on above: Performed By: #### B MP, CBC #### [facility] [address] [place] [address] [place] Platelet mean volume (Bld) [Entitic vol] 8.2 fL Normal 6.3-10.7 [facility] Comment on above: Performed By: #### B MP, CBC #### [facility] [address] [place] [address] [place] Platelets (Bld) [#/Vol] 235 10*3/uL Normal 150-450 [facility] Comment on above: Performed By: #### B MP, CBC #### [facility] [address] [place] [address] [place] RBC (Bld) [#/Vol] 4.17 10*6/uL Normal 3.60-5.00 [facility] Comment on above: Performed By: #### B MP, CBC #### [facility] [address] [place] [address] [place] WBC (Bld) [#/Vol] 6.9 10*3/uL Normal 4.5-11.[address] [facility] Comment on above: Performed By: #### B MP, CBC #### [address] US venous duplex LE BIon US venous duplex LE BI [facility] [place] [address] [place] [address] Ultrasound Report Signed Patient: Morales Lee MR#: [id number] : 1975 Acct:[id number] Age/Sex: 46 / F ADM Date: 10/29/21 Loc: Room: [address] [place] [address] Type: ADM IN Attending Dr: Richard Acevedo MD Ordering Provider: Richard Acevedo MD Date of Service: 11/03/21 US/US venous duplex LE BI: SCI, c/o pain in BLE/calves feel tight Copies to: Richard Acevedo MD BILATERAL LOWER EXTREMITY VENOUS DUPLEX INDICATION: Bilateral lower extremity edema, pain and tenderness PROCEDURE: Color-flow duplex scanning is used to interrogate the deep venous system of the right and left lower extremities. The common femoral vein, femoral vein and popliteal vein show good compressibility with normal proximal and distal augmentation. The calf veins are compressible. US/US venous duplex LE BI IMPRESSION: NO EVIDENCE FOR DEEP VEIN THROMBOSIS OR PROXIMAL SUPERFICIAL THROMBOPHLEBITIS IN THE RIGHT OR LEFT LOWER EXTREMITY. Impression dictated by: Juan Carlos Neal MD11/04/2021 11:36 AM Dictation Location: [place] [address] Tech: Natalia Rivas Transcribed By: CORTNEY 11/04/21 1136 Dictated By: Juan Carlos Neal MD 11/04/21 1135 Signed By: 11/04/21 1136 Normal [facility] Complete Blood Count Auto Di ffon 10-30-2021 Basophils (Bld) [#/Vol] 0.0 10*3/uL Normal 0.0-0.2 [facility] Comment on above: Result Comment: PERF ORMED BY: [place] [address] PATHOLOGIST CLIENT ACCOUNT MANAGER JIANLAN SUN M.D. Performed By: #### C BC, CMP, PAB #### [facility] [address] [place] [id number] [place] Basophils/100 WBC (Bld) 0.6 % Normal . [facility] Comment on above: Performed By: #### C BC, CMP, PAB #### [facility] [address] [place] [address] [place] Eosinophils (Bld) [#/Vol] 0.4 10*3/uL Normal 0.0-0.45 [facility] Comment on above: Performed By: #### C BC, CMP, PAB #### [facility] [address] [place] [address] [place] Eosinophils/100 WBC (Bld) 4.9 % Normal . [facility] Comment on above: Performed By: #### C BC, CMP, PAB #### [facility] [address] [place] [address] [place] Erythrocyte distribution width (RBC) [Ratio] 14.3 % Normal 11.9-15.3 [facility] Comment on above: Performed By: #### C BC, CMP, PAB #### [facility] [address] [place] [address] [place] Hematocrit (Bld) [Volume fraction] 36.1 % Normal 34.0-46.4 [facility] Comment on above: Performed By: #### C BC, CMP, PAB #### [facility] [address] [place] [address] [place] Hemoglobin (Bld) [Mass/Vol] 12.1 g/dL Normal 11.8-15.4 [facility] Comment on above: Performed By: #### C BC, CMP, PAB #### [facility] [address] [place] [address] [place] Lymphocytes (Bld) [#/Vol] 2.8 10*3/uL Normal 1.00-4.8 [facility] Comment on above: Performed By: #### C BC, CMP, PAB #### [facility] [address] [place] [phone] [place] Lymphocytes/100 WBC (Bld) 39.0 % Normal . [facility] Comment on above: Performed By: #### C BC, CMP, PAB #### [facility] [address] MCH (RBC) [Entitic mass] 28.7 pg Normal 24.7-34.3 [facility] Comment on above: Performed By: #### C BC, CMP, PAB #### [facility] [address] MCV (RBC) [Entitic vol] 85.7 fL Normal 80-100 [facility] Comment on above: Performed By: #### C BC, CMP, PAB #### [facility] [address] Mean Corpuscular HGB Conc 33.4 g/dL Normal 32.0-35.0 [facility] Comment on above: Performed By: #### C BC, CMP, PAB #### [facility] [address] Monocytes (Bld) [#/Vol] 0.4 10*3/uL Normal 0.0-0.8 [facility] Comment on above: Performed By: #### C BC, CMP, PAB #### [address] Monocytes/100 WBC (Bld) 5.2 % Normal . [facility] Comment on above: Performed By: #### C BC, CMP, PAB #### [facility] [address] [place] [address] [place] Neutrophils (Bld) [#/Vol] 3.6 10*3/uL Normal 1.8-7.7 [facility] Comment on above: Performed By: #### C BC, CMP, PAB #### [place] [address] [place] Neutrophils/100 WBC (Bld) 50.3 % Normal . [facility] Comment on above: Performed By: #### C BC, CMP, PAB #### [address] Nucleated RBC/100 WBC (Bld) [Ratio] 0.0 % Normal 0-0.5 [facility] Comment on above: Performed By: #### C BC, CMP, PAB #### [facility] [address] Platelet mean volume (Bld) [Entitic vol] 8.1 fL Normal 6.3-10.7 [facility] Comment on above: Performed By: #### C BC, CMP, PAB #### [facility] [address] Platelets (Bld) [#/Vol] 261 10*3/uL Normal 150-450 [facility] Comment on above: Performed By: #### C BC, CMP, PAB #### [address] RBC (Bld) [#/Vol] 4.22 10*6/uL Normal 3.60-5.00 [facility] Comment on above: Performed By: #### C BC, CMP, PAB #### [address] WBC (Bld) [#/Vol] 7.2 10*3/uL Normal 4.5-11.[address] [facility] Comment on above: Performed By: #### C BC, CMP, PAB #### [address] Comprehensive Metabolic Pane shree 10-30-2021 Albumin [Mass/Vol] 2.8 g/dL Low 3.2-5.[address] [facility] Comment on above: Performed By: #### C BC, CMP, PAB #### [address] Albumin/Globulin [Mass ratio] 1.0 {ratio} Normal [facility] Comment on above: Performed By: #### C BC, CMP, PAB #### [address] ALP [Catalytic activity/Vol] 116 U/L High 32-92 [facility] Comment on above: Performed By: #### C BC, CMP, PAB #### [address] ALT [Catalytic activity/Vol] 20 U/L Normal 10-60 [facility] Comment on above: Performed By: #### C BC, CMP, PAB #### [facility] [address] AST [Catalytic activity/Vol] 22 U/L Normal 10-42 [facility] Comment on above: Performed By: #### C BC, CMP, PAB #### [facility] [address] Bilirubin [Mass/Vol] 0.5 mg/dL Normal 0.3-1.2 [facility] Comment on above: Performed By: #### C BC, CMP, PAB #### [facility] [address] Calcium [Mass/Vol] 8.7 mg/dL Normal 8.2-10.[address] [facility] Comment on above: Performed By: #### C BC, CMP, PAB #### [address] Chloride [Moles/Vol] 105 mmol/L Normal 95-114 [facility] Comment on above: Performed By: #### C BC, CMP, PAB #### [facility] [address] CO2 [Moles/Vol] 26.8 mmol/L Normal 22.0-30.0 [facility] Comment on above: Performed By: #### C BC, CMP, PAB #### [facility] [address] Creatinine [Mass/Vol] 0.51 mg/dL Normal 0.44-1.03 [facility] Comment on above: Performed By: #### C BC, CMP, PAB #### [facility] [address] [place] [address] [place] Creatinine Clr Calc Pharmacy 123.73 [facility] Comment on above: Performed By: #### C BC, CMP, PAB #### [facility] [address] [place] [address] [place] Estimated GFR ( July > 60 [facility] Comment on above: Result Comment: GFR estimated reference range: According to KDOQI guidelines, <60 ml/min/1.73m2 is sufficient to diagnose a patient with chronic kidney disease. Performed By: #### C DARIUS PATEL, PAB #### [address] Estimated GFR (Non- Am > 60 Normal [facility] Comment on above: Performed By: #### C DARIUS PATEL, PAB #### [address] Globulin (S) [Mass/Vol] 2.8 g/dL Normal [facility] Comment on above: Performed By: #### C DARIUS PATEL, PAB #### [address] Glucose [Mass/Vol] 115 mg/dL High 70-[address] [facility] Comment on above: Result Comment: Nitro om Glucose Reference Range is dependent on time and content of last meal. Glucose of more than 200 mg/dL in a nonstressed, ambulatory subject supports the diagnosis of Diabetes Mellitus. ADA recommended reference range Performed By: #### C DARIUS PATEL, PAB #### [address] Potassium [Moles/Vol] 3.7 mmol/L Normal 3.5-5.1 [facility] Comment on above: Performed By: #### C DARIUS PATEL, PAB #### [address] Protein [Mass/Vol] 5.6 g/dL Low 6.1-7.[address] [facility] Comment on above: Performed By: #### C DARIUS PATEL, PAB #### [address] Sodium [Moles/Vol] 140 mmol/L Normal 136-[address] [facility] Comment on above: Performed By: #### C JORGE CMP, PAB #### [facility] [address] Urea nitrogen [Mass/Vol] 7 mg/dL Low 9-23 [facility] Comment on above: Performed By: #### C BC, CMP, PAB #### [facility] [address] [place] [address] [place] Dipstick and Microscopicon 0 10-30-2021 Appearance (U) Clear Normal Clear [facility] Comment on above: Order Comment: Name Collection Type:: Voided Performed By: #### A DDONUAPLUS, CUU #### [place] [address] [place] Bacteria,Urine 4+ High None Seen [facility] Comment on above: Order Comment: Name Collection Type:: Voided Performed By: #### A DDONUAPLUS, CUU #### [place] [address] [place] Bilirubin,Urine Negative Normal Negative [facility] Comment on above: Order Comment: Name Collection Type:: Voided Performed By: #### A DDONUAPLUS, CUU #### [place] [address] [place] Color (U) Yellow Normal Yellow [facility] Comment on above: Order Comment: Name Collection Type:: Voided Performed By: #### A DDONUAPLUS, CUU #### [place] [address] [place] Glucose Ql (U) Normal Normal Normal [facility] Comment on above: Order Comment: Name Collection Type:: Voided Performed By: #### A DDONUAPLUS, CUU #### [place] [address] [place] Hyaline Casts,Urine 0-8 Normal 0-8 [facility] Comment on above: Order Comment: Name Collection Type:: Voided Result Comment: PERF ORMED BY: [place] [address] PATHOLOGIST CLIENT ACCOUNT MANAGER HUY COX M.D. Performed By: #### A DDONUAPLUS, CUU #### [place] [address] [place] Ketones Ql (U) Negative Normal Negative [facility] Comment on above: Order Comment: Name Collection Type:: Voided Performed By: #### A DDONUAPLUS, CUU #### [facility] [address] [place] [address] Leukocyte esterase Test strip Ql (U) 3+ High Negative [facility] Comment on above: Order Comment: Name Collection Type:: Voided Performed By: #### A DDONUAPLUS, CUU #### [place] [address] [place] Nitrite,Urine Positive High Negative [facility] Comment on above: Order Comment: Name Collection Type:: Voided Performed By: #### A DDONUAPLUS, CUU #### [address] Occult Blood,Urine Negative Normal Negative [facility] Comment on above: Order Comment: Name Collection Type:: Voided Result Comment: PERF ORMED BY: [place] [address] PATHOLOGIST CLIENT ACCOUNT MANAGER HUY COX M.D. Performed By: #### A DDONUAPLUS, CUU #### [address] pH (U) 5.5 [pH] Normal 5.0-9.0 [facility] Comment on above: Order Comment: Name Collection Type:: Voided Performed By: #### A DDONUAPLUS, CUU #### [place] [address] [place] Protein,Urine Negative Normal Negative [facility] Comment on above: Order Comment: Name Collection Type:: Voided Performed By: #### A DDONUAPLUS, CUU #### [place] [address] [place] RBC LM.HPF (Urine sed) [#/Area] 0 /[HPF] Normal 0-4 [facility] Comment on above: Order Comment: Name Collection Type:: Voided Performed By: #### A DDONUAPLUS, CUU #### [place] [address] [place] Specificy Clyo,Urine 1.012 Normal 1.001-1.030 [facility] Comment on above: Order Comment: Name Collection Type:: Voided Performed By: #### A DDONUAPLUS, CUU #### [address] Squamous Epithelial Cell,Urine 0-1 Normal 0-2 [facility] Comment on above: Order Comment: Name Collection Type:: Voided Performed By: #### A DDONUAPLUS, CUU #### [address] Urobilinogen,Urine Normal Normal Normal [facility] Comment on above: Order Comment: Name Collection Type:: Voided Performed By: #### A DDONUAPLUS, CUU #### [address] WBC,Urine 20-49 High 0-4 [facility] Comment on above: Order Comment: Name Collection Type:: Voided Performed By: #### A DDONUAPLUS, CUU #### [address] Prealbuminon 10-30-2021 Prealbumin [Mass/Vol] 13.1 mg/dL Low 18.0-38.0 [facility] Comment on above: Result Comment: PERF ORMED BY: [place] [address] PATHOLOGIST CLIENT ACCOUNT MANAGER HUY COX M.D. Performed By: #### C BC, CMP, PAB #### [address] Urine Cultureon 10-30-2021 Bacteria identified Cx Nom (U) ORGANISM: Escherichia coli (O:ESCCOL) [place] Count >100,000 Aerobic JOSE Charge (NUC86) SUSCEPTIBILITY ORGANISM: O:ESCCOL ANTIBIOTIC INTERPRETATION JOSE Amikacin S <16 Ampicillin S <8 Ampicillin/Sulbactam S <8/4 Aztreonam S <4 Cefazolin S <2 Cefepime S <2 Ceftazidime S <1 Ceftazidime/Avibactam S <8 Ceftriaxone S <1 Ciprofloxacin R >2 Ertapenem S <0.5 Gentamicin S <4 Levofloxacin R >4 Meropenem S <1 Nitrofurantoin S <32 Piperacillin/Tazobactam S <16 Tetracycline S <4 Tigecycline S <2 Tobramycin S <4 Trimethoprim/Sulfamethoxazo le S <38 S = SUSCEPTIBLE I = INTERMEDIATE R = RESISTANT BLANK = DATA NOT AVAILABLE, OR DRUG NOT ADVISABLE OR TESTED R* = RESISTANCE DUE TO EXTENDED SPECTRUM BETA-LACTAMASES ESBL = EXTENDED SPECTRUM BETA-LACTAMASE TFG = THYMIDINE-DEPENDENT STRAIN ARETHA = BETA-LACTAMASE POSITIVE IB = INDUCIBLE BETA-LACTAMASE. APPEARS IN PLACE OF 'S' WITH SPECIES KNOWN TO POSSESS INDUCIBLE BETA-LACTAMASES. POTENTIALLY THEY MAY BECOME RESISTANT TO ALL B-LACTAM DRUGS. PERFORMED BY: [place] [address] PATHOLOGIST CLIENT ACCOUNT MANAGER HUY COX M.D. Normal [facility] Comment on above: Performed By: #### A DDONUAPLUS, [facility] #### [address] [facility] SARS-CoV-2 (COVID-19) RNA ADRIÁN+probe Ql (Unsp spec) Negative Normal Negative [facility] Comment on above: Order Comment: Healt hcare Worker?: N Result Comment: Testing for SARS-CoV-2 by RT-PCR This test was developed and its performance characteristics determined by [employer]) and validated at the [facility]. This test has not been FDA cleared or approved. This test has been authorized by FDA under an Emergency Use Authorization (EUA). This test has been validated in accordance with the FDA's Guidance Document (Policy for Diagnostics Testing in Laboratories Certified to Perform High Complexity Testing under CLIA prior to Emergency Use Authorization for Coronavirus Disease-2019 during the Public Health Emergency) issued on December 06, 2019. This test is only authorized for the duration of time the declaration that circumstances exist justifying the authorization of the emergency use of in vitro diagnostic tests for detection of SARS-CoV-2 virus and/or diagnosis of COVID-19 infection under section 564(b)(1) of the Act, 21 U.S.C. 360bbb-3(b)(1), unless the authorization is terminated or revoked sooner. PERFORMED BY: [facility] [address] [place] [address] PATHOLOGIST CLIENT ACCOUNT MANAGER HUY COX M.D. Performed By: #### C OVID 19 [facility] #### [facility] [address] Clinical Event Note-Need for Hospital Bedon 10-02-2021 Clinical Event Note-Need for Hospital Bed Clinical Event: Clinical Event Note: TopicNeed for Hospital Bed Details Patient has medical condition that requires hospital bed in the post op period for frequent changes in body positioning not feasible in a standard bed to alleviate pain secondary to patients inability to lie flat from thoracic kyphosis, spinal stenosis of the lumbar region. Provider/Team Contact Info-Pager [phone] Electronic Signatures: Sharmin Guaman (ASSISTANT PROGRAM MANAGER-BROOM MAN) (Signed 02-Oct-2021 15:19) Authored: Clinical Event Note Last Updated: 02-Oct-2021 15:19 by Sharmin Guaman (ASSISTANT PROGRAM MANAGER-BROOM MAN) Normal [facility] Clinical Event Note-Need for wheel Chairon 10-02-2021 Clinical Event Note-Need for wheel Chair Clinical Event: Clinical Event Note: TopicNeed for wheel Chair Details Patient has need for wheel chair due to mobility limitation that impairs their ability to complete one or more mobility related ADL's. Cannot sufficiently use cane or walker. Can and will use wheel chair regularly within home, can self propel or has a career portals teacher to provide assistance. Provider/Team Contact Info-Pager [phone] Electronic Signatures: Sharmin Guaman (ASSISTANT PROGRAM MANAGER-BROOM MAN) (Signed 02-Oct-2021 15:27) Authored: Clinical Event Note Last Updated: 02-Oct-2021 15:27 by Sharmin Guaman (ASSISTANT PROGRAM MANAGER-BROOM MAN) Normal [facility] Daily Progress Note-Neurosur geryon 10-02-2021 Daily Progress Note-Neurosurgery Service: Neurosurgery Subjective Data: MORALES LEE is a 46 year old Female who is Hospital Day # 18 and POD #11 for posterior L4-L5 decompression;posterior L4-L5 arthrodesis. Objective Data: Objective Information: T PRBPSpO2 [id number]% Date/Time10/02 1: 1: 1: 1: 1:28 Range(36.2C - 37.6C ) (76 - 88 ) (14 - 18 ) (104 - 138 )/ (68 - 83 ) (93% - 97% ) Highest temp of 37.6 C was recorded at 10/01 16:06 Pain reported at 10/01 16:06: 0 = None ---- Intake and Output ----- Mn/Dy/Year TimeIntakeOutputNet Oct 02, 2021 6:00 am000 Oct 01, 2021 10:00 pm000 Oct 01, 2021 2:00 [id number] The Intake and Output Totals for the last 24 hours are: IntakeOutputNet [id number] Physical Exam by System: Neurological: A&Ox3 RUE D5, B5, T5, HG5, IO5 LUE D4+, B4+, T4+, HG4+, IO5 RLE HF 3, KE4-, PF1, DF0 LLE HF 4-, KE4-, PF2, DF1 incision c/d/i Recent Lab Results: Results: RFP: 09/27/2021 14:14 NA+ Cl- BUN / 137 98 6 / ----- Glucose 91 K+ HCO3- Creat \ 4.1 26 0.44 L \ Calcium : 8.5 LAnion Gap : 17 Albumin : 3.3 L Phos : 4.0 Assessment and Plan: Code Status: Code StatusFull Code Assessment: Pt is a 46 yo F w/ h/o HTN, C6-7 ACDFF, T1 comp fx s/p T11-12 lami c/b worseing kyphosis s/p 12/2020 L1 transpedic decompression/SPOs/T5-L4 fusion, b/l ulnar neuorpathies p/w thoracic kyphosis. 09/16 BLE DVT US negative 09/18 s/p extension of instrumentation to L5 to pelvis w/reduction of L4-5 dislocation, post op w/no dorsiflexion or toe wiggle, CT LS hardware in correct position 09/20 hypotensive w/ pt Hgb drop s/p 1u pRBC, incr to MRI TS/LS L4 stenosis 09/21 s/p L4/5 lami, accessory kwame placement 09/28 Prevena/drain dc'd 09/30 patient unable to be tolerate transfers to go home Plan: tele AFO Chronic pain recs COWS psych recs SCDs, SQH dispo home w/ HC when able Attestation: Note Completion: I am a: Resident/Fellow Attending AttestationI saw and evaluated the patient. I personally obtained the schofield and critical portions of the history and physical exam or was physically present for schofield and critical portions performed by the resident/fellow. I reviewed the resident/fellows documentation and discussed the patient with the resident/fellow. I agree with the resident/fellows medical decision making as documented in the note. I personally evaluated the patient [id number] Electronic Signatures: Kenneth Philippe (Resident)) (Signed 02-Oct-2021 06:52) Authored: Service, Subjective Data, Objective Data, Assessment and Plan, Note Completion Lex Frederick) (Signed 02-Oct-2021 15:16) Authored: Note Completion Co-Signer: Service, Subjective Data, Objective Data, Assessment and Plan, Note Completion Last Updated: 02-Oct-2021 15:16 by Lex Frederick) [facility] Clinical Event Note-Discharg e discussionon 10-01-2021 Clinical Event Note-Discharge discussion Clinical Event: Clinical Event Note: TopicDischarge discussion Details Extensive conversation held at bedside with Dr. Frederick (via the phone), patient and patient's , [place]. Patient given options to pursue Acute Rehab placement vs. Home with Home Health Care. Concerns regarding patient's mobility and PT/OT recommendations discussed. When given the options, decision made to pursue home health care. Both patient and express they feel patient will be safe at home and able to function in her home environment with [facility]. Ultimately, patient's allowed patient to make final decision regarding discharge. Will ensure HHC orders placed and hospital bed ordered. Will discuss with discharge team organizing transportation home given patient's post op pain and duration of trip. Electronic Signatures: Ambrocio Izaguirre (ASSISTANT PROGRAM MANAGER-BROOM MAN) (Signed 01-Oct-2021 17:11) Authored: Clinical Event Note Last Updated: 01-Oct-2021 17:11 by Ambrocio Izaguirre (ASSISTANT PROGRAM MANAGER-BROOM MAN) [facility] Clinical Event Note-Need for hospital bedon 10-01-2021 Clinical Event Note-Need for hospital bed Clinical Event: Clinical Event Note: TopicNeed for hospital bed Details Patient in need of hospital bed in the post op period secondary to pain impairing ability to lie flat from thoracic kyphosis, spinal stenosis of the lumbar region and post operative pain. Pain worsened when lying flat. Electronic Signatures: Ambrocio Izaguirre (ASSISTANT PROGRAM MANAGER-BROOM MAN) (Signed 01-Oct-2021 14:48) Authored: Clinical Event Note Last Updated: 01-Oct-2021 14:48 by Ambrocio Izaguirre (ASSISTANT PROGRAM MANAGER-BROOM MAN) [facility] Daily Progress Note-Neurosjudy leonidasgaurang 10-01-2021 Daily Progress Note-Neurosurgery Service: Neurosurgery Subjective Data: MORALES LEE is a 46 year old Female who is Hospital Day # 17 and POD #10 for posterior L4-L5 decompression;posterior L4-L5 arthrodesis. Objective Data: Objective Information: T PRBPSpO2 [id number]/7194% Date/Time10/01 0: 0: 0: 0:381 0:38 Range(35.6C - 36.8C ) (64 - 96 ) (16 - 19 ) (94 - 138 )/ (59 - 83 ) (92% - 94% ) Pain reported at 09/30 9:00: 2 = Mild ---- Intake and Output ----- Mn/Dy/Year TimeIntakeOutputNet Sep 29, 2021 10:00 [id number] Sep 29, 2021 2:00 [id number] Sep 29, 2021 6:00 am000 The Intake and Output Totals for the last 24 hours are: IntakeOutputNet 360nullnull Physical Exam by System: Neurological: A&Ox3 RUE D5, B5, T5, HG5, IO5 LUE D4+, B4+, T4+, HG4+, IO5 RLE HF 3, KE4-, PF1, DF0 LLE HF 4-, KE4-, PF2, DF1 increased sensation soles of feet Recent Lab Results: Results: RFP: 09/27/2021 14:14 NA+ Cl- BUN / 137 98 6 / ----- Glucose 91 K+ HCO3- Creat \ 4.1 26 0.44 L \ Calcium : 8.5 LAnion Gap : 17 Albumin : 3.3 L Phos : 4.0 Assessment and Plan: Code Status: Code StatusFull Code Assessment: Pt is a 46 yo F w/ h/o HTN, C6-7 ACDFF, T1 comp fx s/p T11-12 lami c/b worseing kyphosis s/p 12/2020 L1 transpedic decompression/SPOs/T5-L4 fusion, b/l ulnar neuorpathies p/w thoracic kyphosis. 09/16 BLE DVT US negative 09/18 s/p extension of instrumentation to L5 to pelvis w/reduction of L4-5 dislocation, post op w/no dorsiflexion or toe wiggle, CT LS hardware in correct position 09/20 hypotensive w/ pt Hgb drop s/p 1u pRBC, incr to MRI TS/LS L4 stenosis 09/21 s/p L4/5 lami, accessory kwame placement 09/28 Prevena/drain dc'd 09/30 patient unable to be tolerate transfers to go home Plan: tele AFO Chronic pain recs COWS psych recs SCDs, SQH PTOT re-eval this AM Attestation: Note Completion: I am a: Resident/Fellow Attending AttestationI reviewed the resident/fellows documentation and discussed the patient with the resident/fellow. I agree with the resident/fellows medical decision making as documented in the note. Electronic Signatures: Lex Frederick) (Signed 01-Oct-2021 10:29) Authored: Note Completion Co-Signer: Service, Subjective Data, Objective Data, Assessment and Plan, Note Completion Jaya Mosquera (Resident)) (Signed 01-Oct-2021 01:35) Authored: Service, Subjective Data, Objective Data, Assessment and Plan, Note Completion Last Updated: 01-Oct-2021 10:29 by Lex Frederick) [facility] Daily Progress Note-Neurosurgery This report has been cancelled. [facility] Daily Progress Note-Neurosur leonidasyon 09-30-2021 Daily Progress Note-Neurosurgery Service: Neurosurgery Subjective Data: MORALES LEE is a 46 year old Female who is Hospital Day # 15 and POD #8 for posterior L4-L5 decompression;posterior L4-L5 arthrodesis. Objective Data: Objective Information: T PRBPSpO2 [id number]/7393% Date/Time09/29 16: 16: 16: 16: 16:00 Range(36C - 36.7C ) (67 - 86 ) (17 - 20 ) (94 - 153 )/ (15 - 113 ) (93% - 98% ) Pain reported at 09/29 9:56: 5 = Moderate ---- Intake and Output ----- Mn/Dy/Year TimeIntakeOutputNet Sep 29, 2021 2:00 [id number] Sep 29, 2021 6:00 am000 Sep 28, 2021 10:00 [id number] The Intake and Output Totals for the last 24 hours are: IntakeOutputNet 360nullnull Physical Exam by System: Neurological: A&Ox3 RUE D5, B5, T5, HG5, IO5 LUE D4+, B4+, T4+, HG4+, IO5 RLE HF 3, KE4-, PF1, DF0 LLE HF 4-, KE4-, PF2, DF1 increased sensation soles of feet Recent Lab Results: Results: RFP: 09/27/2021 14:14 NA+ Cl- BUN / 137 98 6 / ----- Glucose 91 K+ HCO3- Creat \ 4.1 26 0.44 L \ Calcium : 8.5 LAnion Gap : 17 Albumin : 3.3 L Phos : 4.0 Assessment and Plan: Code Status: Code StatusFull Code Assessment: Pt is a 46 yo F w/ h/o HTN, C6-7 ACDFF, T1 comp fx s/p T11-12 lami c/b worseing kyphosis s/p 12/2020 L1 transpedic decompression/SPOs/T5-L4 fusion, b/l ulnar neuorpathies p/w thoracic kyphosis. 09/16 BLE DVT US negative 09/18 s/p extension of instrumentation to L5 to pelvis w/reduction of L4-5 dislocation, post op w/no dorsiflexion or toe wiggle, CT LS hardware in correct position 09/20 hypotensive w/ pt Hgb drop s/p 1u pRBC, incr to MRI TS/LS L4 stenosis 09/21 s/p L4/5 lami, accessory kwame placement 09/28 Prevena/drain dc'd Plan: tele AFO Chronic pain recs COWS psych recs SCDs, SQH PTOT-rehab Attestation: Note Completion: I am a: Resident/Fellow Attending AttestationI saw and evaluated the patient. I personally obtained the schofield and critical portions of the history and physical exam or was physically present for schofield and critical portions performed by the resident/fellow. I reviewed the resident/fellows documentation and discussed the patient with the resident/fellow. I agree with the resident/fellows medical decision making as documented in the note. I personally evaluated the patient [id number] Electronic Signatures: Lex Frederick) (Signed 30-Sep-2021 11:18) Authored: Note Completion Co-Signer: Service, Subjective Data, Objective Data, Assessment and Plan, Note Completion Jaya Mosquera (Resident)) (Signed 30-Sep-2021 03:18) Authored: Service, Subjective Data, Objective Data, Assessment and Plan, Note Completion Last Updated: 30-Sep-2021 11:18 by Lex Frederick) [facility] Ahek-zk-rlhbfixzl - co -tx /c OT to address multidiscipon 09-30-2021 Rehab Bdmu-el-bkpbsapcr - co-tx /c OT to address multidiscip Rehab: Info: Disciplinephysical physical therapy supervisor Mode of Treatmentphysical therapy; co-treatment; co-tx /c OT to address multidisciplinary functional needs and maximize pt's safety. Time IN12:15 Time OUT12:55 Total Treatment [id number] Patient in ... at end of sessionbed, 3 railings up; alarm off; not on at start of visit Communicated with ... at end of sessionbedside nurse Patient Effortgood Symptoms Noted During/After Treatmentfatigue Treatment Considerations/CommentsExte nsive discussion /c amongst WEB DEVELOPMENT MANAGER, OT, and pt regarding her current physical status and our recommendations. At this time, pt does express I just want to go home but mostly out of frustration /c d/c planning, and feeling that she is denied Rehab 2* PT/OT documentation stating pt had 1 refusal. OT and I were able to explain to pt that this was only a reflection of 1 day and not a full picture of her progress /c us, and it was likely the timing of when our documentation was sent to her insurance. We stated that all other PT/OT documentation reflect her participation and we have continuously recommended high-intensity PT post d/c daily. Pt states understanding of this. Patient Response to TreatmentPt expresses frustrations about the past few days but was apologetic and later emotional about events that lead up to her current status. Pt willing to participate /c therapy today, performing ADLs and transfers. Mobility/Tone: Bed Mobility Assessment/Interventionssup ine to sit; sit to supine; rolling right; rolling left; scooting/bridging Roll Left [place] (Bed Mobility)moderate assist (50% patient effort); 1 person assist; nonverbal cues (demo/gesture); verbal cues Roll Right [place] (Bed Mobility)moderate assist (50% patient effort); 1 person assist; nonverbal cues (demo/gesture); verbal cues Scoot/Bridge [place] (Bed Mobility)maximum assist (25% patient effort); 2 person assist; nonverbal cues (demo/gesture); verbal cues Rvtmav-df-Gma [place] (Bed Mobility)maximum assist (25% patient effort); 2 person assist; nonverbal cues (demo/gesture); verbal cues Oiq-wi-Vwumah [place] (Bed Mobility)maximum assist (25% patient effort); 2 person assist; nonverbal cues (demo/gesture); verbal cues Assistive Device (Bed Mobility)bed rails; draw sheet Comment, Bed MobilityPt showing improvement in her ability to roll, performing 50% of AROM to achieve full rolling position. Transfer Assessment/Interventionssit to stand transfer; stand to sit transfer Comment, TransfersToday's session, OT and I utilized Dinora Stand device to assist pt into full standing positions. Pt able to complete 2 rounds of standing: the first round for 5 minutes, the second round for ~10-12 minutes. While in standing, pt was able to achieve occasional clearance of bilateral knees from kneepads on the device and utilize bilateral quad muscles to assist in bilateral weight-bearing. Pt initially had diminished sensation in both of her feet during the first round, pt was able to find secure footing through most of the second round. Pt also attempted Knee flexion while secured in the device. Pt was only able to flex L knee x5 with assist/assistance and soon fatigued. Pt continued to maintain standing position but then unable to fully extend her hips and soon fatigued from standing altogether. Pt repositioned back to sitting EOB. Sit-Stand [place] (Transfers)dependent (less than 25% patient effort) Sit-Stand Assistive Device (Transfers)mechanical lift/aid Stand-Sit [place] (Transfers)dependent (less than 25% patient effort) Stand-Sit Assistive Device (Transfers)mechanical lift/aid Impairments Impacting Function (Mobility)endurance/activit y tolerance; strength; balance; coordination; postural/trunk control Outcomes Tools: Turning from your back to your side while in a flat bed without using bedrails a lot Moving from lying on your back to sitting on the side of a flat bed without using bedrailsa lot Moving to and from bed to chair (including a wheelchair)total Standing up from a chair using your arms (e.g. wheelchair or bedside chair) total To walk in hospital roomtotal Climbing 3-5 steps with railingtotal AM-PAC (PT) Total Score8 Short Term Goals: Bed Mobility: Date [id number] Bed Mobility: [place] Level Goalminimum assist (75% patients effort) Bed Mobility: Physical Assist Level Goal1-person assist, verbal cues Bed Mobility: Time Frame for Goal2 wks Transfer: Established [id number] Transfer: Transfer Type Ogjjoft-au-bcxxn/chair-to-b ed; aqe-mz-yrsne/uanud-id-icx Transfer: [place] Level Goalmoderate assist (50% patients effort) Transfer: Physical Assist Level Goal1-person assist; verbal cues Transfer: Assistive Device Goalrolling walker Transfer: Time Frame for Goal2 wks Gait: Established [id number] Gait: [place] Level Goalmoderate assist (50% patients (more content not included)... [facility] Rehab Note-occupational health nurse supervisor apy - co-tx with PT to maximizeon 09-30-2021 Rehab Note-occupational therapy - co-tx with PT to maximize Rehab: Info: Disciplineoccupational therapist Mode of Treatmentoccupational therapy; co-tx with PT to maximize pt's mobility and safety. Time IN12:15 Time OUT12:55 Total Treatment [id number] Patient in ... at end of sessionbed, 3 railings up; alarm off; not on at start of visit Communicated with ... at end of sessionbedside nurse Patient Effortgood Symptoms Noted During/After Treatmentfatigue Patient Response to TreatmentPt supine upon approach and agreeable to OT with encouragement. Pt cooperative and labile with tearfulness at times. Pt offered opportunities for OOB mobility and ADL engagement, was agreeable to bed mobility and toileting. Patient/Family/Caregiver Comments/ObservationsPt reported frustration with current functional status and misunderstanding of d/c and placement process. Pt stated she wants to go home due to frustration with misunderstandings. Following extensive education, encouragement, and reassurance pt stated understanding of importance of rehabilitation placement, need, and benefit. Line and TubesIV; purewick Mobility/Tone: Bed Mobility Assessment/Interventionsrol ling right; rolling left; scooting/bridging Roll Left [place] (Bed Mobility)moderate assist (50% patient effort); 1 person assist; nonverbal cues (demo/gesture); verbal cues Roll Right [place] (Bed Mobility)moderate assist (50% patient effort); 1 person assist; nonverbal cues (demo/gesture); verbal cues Scoot/Bridge [place] (Bed Mobility)maximum assist (25% patient effort); 2 person assist; nonverbal cues (demo/gesture); verbal cues; boost HOB via Trendelenburg position Assistive Device (Bed Mobility)bed rails; draw sheet Comment, Bed MobilityPt demonstrated improved ability to complete rolling in bed to facilitate toilet hygiene with increased trunk control and assist ot progress BLEs. Safety Issues Impacting Function (Mobility)insight into deficits/self awareness; awareness of need for assistance; judgment; problem solving; safety precaution awareness Impairments Impacting Function (Mobility)endurance/activit y tolerance; strength; balance; coordination; postural/trunk control; pain ADL: BADL Assessment/Interventiontoil eting; feeding; grooming; lower body dressing; upper body dressing; bathing [place] Level (Bathing)set up; verbal cues; moderate assist (50% patient effort); 1 person assist Comment (Bathing)anticipated due to impaired balance, strength, and pain. [place] Level (Upper Body Dressing)set up; verbal cues; moderate assist (50% patient effort) Comment (Upper Body Dressing)anticipated due to impaired balance, strength, and pain. [place] Level (Lower Body Dressing)don; socks; dependent (less than 25% patient effort) Position (Lower Body Dressing)supine [place] Level (Grooming)modified independence Comment (Grooming)Pt observed applying Orajel to gums, able to manage packaging, cap un/screwing, and application. [place] Level (Feeding)modified independence Comment (Feeding)Pt able to retrieve OJ cup from tray table at R side, bring to mouth, and drink appropriately. [place] Level (Toileting)dependent (less than 25% patient effort); purewick Comment (Toileting)Pt required Total A for toilet hygiene following urinary incontinence with rolling R/L in bed. Impairments, BADL Safety/Performancebalance; cognition; endurance/activity tolerance; strength; trunk/postural control Cognitive Impairments, BADL Safety/Performanceawareness , need for assistance; insight into deficits/self awareness; judgment; problem solving/reasoning Sensory: Comment, Pre/Post Treatment PainPt with facial and tooth pain, did not rate. Health: Observed Emotional Statecooperative Plan of Care Reviewed Withpatient Outcomes Tools: Putting on and taking off regular lower body clothinga lot Bathing (including washing, rinsing, drying)a lot Toileting, which includes using toilet, bedpan or urinaltotal Putting on and taking off regular upper body clothinga lot Taking care of personal grooming such as brushing teethnone Eating Mealsnone AM-PAC (OT) Total Score15 Short Term Goals: Bed Mobility: Date [id number] Bed Mobility: [place] Level Goalcontact guard Bed Mobility: Physical Assist Level Goalset-up, verbal cues Bed Mobility: Time Frame for Goal2 wks Transfer: Established Transfer: Transfer Type Muagwaa-pq-feuvq/chair-to-b ed; ozm-rf-rxgwy/tvppp-iy-olx; toilet Transfer: [place] Level Goalminimum assist (75% patients effort) Transfer: Physical Assist Level Goalset-up; verbal cues; 1-person assist Transfer: Assistive Device GoalLRD Transfer: Time Frame for Goal2 wks Balance: Established [id number] Balance: Goal DetailsPt will perform ADL while reaching outside MADDIE and returning self to midline >8 minutes with set-up assist, SBA, and minimal verbal cues for safety. Enrique (more content not included)... [facility] Daily Progress Note-Nuha stearns 09-29-2021 Daily Progress Note-Neurosurgery Service: Neurosurgery Subjective Data: MORALES LEE is a 46 year old Female who is Hospital Day # 14 and POD #7 for posterior L4-L5 decompression;posterior L4-L5 arthrodesis. Objective Data: Objective Information: T PRBPSpO2 [id number]/6993% Date/Time09/28 4: 8: 8: 8: 8:00 Range(36C - 36.6C ) (73 - 87 ) (15 - 22 ) (92 - 128 )/ (48 - 74 ) (92% - 99% ) As of 28-Sep-2021 08:00:00, patient is on 2 L/min of oxygen via nasal cannula. Pain reported at 09/28 8:00: 0 = None ---- Intake and Output ----- Mn/Dy/Year TimeIntakeOutputNet Sep 28, 2021 6:00 am000 Sep 27, 2021 10:00 [id number] Sep 27, 2021 2:00 [id number] The Intake and Output Totals for the last 24 hours are: IntakeOutputNet [id number] Physical Exam by System: Neurological: A&Ox3 RUE D5, B5, T5, HG5, IO5 LUE D4+, B4+, T4+, HG4+, IO5 RLE HF 3, KE4-, PF1, DF0 LLE HF 4-, KE4-, PF2, DF1 Recent Lab Results: Results: RFP: 09/27/2021 14:14 NA+ Cl- BUN / 137 98 6 / ----- Glucose 91 K+ HCO3- Creat \ 4.1 26 0.44 L \ Calcium : 8.5 LAnion Gap : 17 Albumin : 3.3 L Phos : 4.0 Assessment and Plan: Code Status: Code StatusFull Code Assessment: Pt is a 46 yo F w/ h/o HTN, C6-7 ACDFF, T1 comp fx s/p T11-12 lami c/b worseing kyphosis s/p 12/2020 L1 transpedic decompression/SPOs/T5-L4 fusion, b/l ulnar neuorpathies p/w thoracic kyphosis. 09/16 BLE DVT US negative 09/18 s/p extension of instrumentation to L5 to pelvis w/reduction of L4-5 dislocation, post op w/no dorsiflexion or toe wiggle, CT LS hardware in correct position 09/20 hypotensive w/ pt Hgb drop s/p 1u pRBC, incr to MRI TS/LS L4 stenosis 09/21 s/p L4/5 lami, accessory kwame placement 09/28 Prevena/drain dc'd Plan: tele AFO Chronic pain recs COWS psych recs alvares for retention SCDs, SQH PTOT-rehab Attestation: Note Completion: I am a: Resident/Fellow Attending AttestationI saw and evaluated the patient. I personally obtained the schofield and critical portions of the history and physical exam or was physically present for schofield and critical portions performed by the resident/fellow. I reviewed the resident/fellows documentation and discussed the patient with the resident/fellow. I agree with the resident/fellows medical decision making as documented in the note. I personally evaluated the patient [id number] Electronic Signatures: Lex Frederick) (Signed 29-Sep-2021 09:23) Authored: Note Completion Co-Signer: Service, Subjective Data, Objective Data, Assessment and Plan, Note Completion Jaya Mosquera (Resident)) (Signed 29-Sep-2021 03:01) Authored: Service, Subjective Data, Objective Data, Assessment and Plan, Note Completion Last Updated: 29-Sep-2021 09:23 by Lex Frederick) [facility] Ovie-tf-tfjtamzkk - co -tx /c OT to address multidiscipon 09-29-2021 Rehab Utdt-yz-yqvxylfzl - co-tx /c OT to address multidiscip Rehab: Info: Disciplinephysical physical therapy supervisor Mode of Treatmentphysical therapy; co-treatment; co-tx /c OT to address multidisciplinary functional needs and maximize pt's safety. Time IN14:30 Time OUT15:40 Total Treatment [id number] Patient in ... at end of sessionbed, 3 railings up; alarm off; not on at start of visit Communicated with ... at end of sessionbedside nurse Patient Effortexcellent Symptoms Noted During/After Treatmentfatigue Patient Response to TreatmentPt in good spirits today. Willing to participate and stating motivation to improve her function. She recounts the events that have gotten her to this point and ultimately states that she doesn't want to be like this , she wants to move again. Today, she still have various sensations /c (B)LE swelling and discomfort in her knees, but she was pleased /c the progress we made today. Mobility/Tone: Bed Mobility Assessment/Interventionsrol ling right; rolling left; scooting/bridging; supine to sit; sit to supine Roll Left [place] (Bed Mobility)maximum assist (25% patient effort); 2 person assist; verbal cues; nonverbal cues (demo/gesture) Roll Right [place] (Bed Mobility)maximum assist (25% patient effort); 2 person assist; verbal cues; nonverbal cues (demo/gesture) Scoot/Bridge [place] (Bed Mobility)maximum assist (25% patient effort); 2 person assist; nonverbal cues (demo/gesture); verbal cues Puyrtg-qp-Mfk [place] (Bed Mobility)maximum assist (25% patient effort); 2 person assist; nonverbal cues (demo/gesture); verbal cues Yod-kn-Uvwnnq [place] (Bed Mobility)verbal cues; nonverbal cues (demo/gesture); maximum assist (25% patient effort); 2 person assist Assistive Device (Bed Mobility)draw sheet; bed rails Comment, Bed MobilityOT and PT utilized series of rolling to don harness for Dinora Stand device. Transfer Assessment/Interventionssit to stand transfer; stand to sit transfer Comment, TransfersToday's session, OT and I utilized Dinora Stand device to assist pt into full standing positions. Pt able to complete 2 rounds of standing: the first round for 5 minutes, the second round for ~10-12 minutes. While in standing, pt was able to achieve occasional clearance of bilateral knees from kneepads on the device and utilize bilateral quad muscles to assist in bilateral weight-bearing. Pt initially had diminished sensation in both of her feet during the first round, pt was able to find secure footing through most of the second round. Pt also attempted Knee flexion while secured in the device. Pt was only able to flex L knee x5 with assist/assistance and soon fatigued. Pt continued to maintain standing position but then unable to fully extend her hips and soon fatigued from standing altogether. Pt repositioned back to sitting EOB. Sit-Stand [place] (Transfers)dependent (less than 25% patient effort) Sit-Stand Assistive Device (Transfers)mechanical lift/aid Stand-Sit [place] (Transfers)dependent (less than 25% patient effort) Stand-Sit Assistive Device (Transfers)mechanical lift/aid Impairments Impacting Function (Mobility)endurance/activit y tolerance; strength; balance; coordination; postural/trunk control Outcomes Tools: Turning from your back to your side while in a flat bed without using bedrails a lot Moving from lying on your back to sitting on the side of a flat bed without using bedrailsa lot Moving to and from bed to chair (including a wheelchair)total Standing up from a chair using your arms (e.g. wheelchair or bedside chair) total To walk in hospital roomtotal Climbing 3-5 steps with railingtotal AM-PAC (PT) Total Score8 Short Term Goals: Bed Mobility: Date [id number] Bed Mobility: [place] Level Goalminimum assist (75% patients effort) Bed Mobility: Physical Assist Level Goal1-person assist, verbal cues Bed Mobility: Time Frame for Goal2 wks Transfer: Established [id number] Transfer: Transfer Type Rsvdsih-us-ugfmb/chair-to-b ed; lmr-xx-aaulv/vhzuc-tu-xiz Transfer: [place] Level Goalmoderate assist (50% patients effort) Transfer: Physical Assist Level Goal1-person assist; verbal cues Transfer: Assistive Device Goalrolling walker Transfer: Time Frame for Goal2 wks Gait: Established [id number] Gait: [place] Level Goalmoderate assist (50% patients effort) Gait: Physical Assist Level1-person assist; verbal cues Gait: Assistive Device Goalrolling walker Gait: Distance Goal15 feet Gait: Time Frame for Goal2 wks Balance: Established [id number] Balance: Goal DetailsSitting EOB 20 minutes with 0-1 UE support, SBA for static sitting, CGA for dynamic. Standing 1 minute with FWW and CGA Education: Learnerpatient Topicrehab plan of care; discharge recommendations including destination and/or equipment Outcome Summary: Progress: Physical Therapyprogress towards functional goals is fair Outcome (more content not included)... [facility] Rehab Note-occupational health nurse supervisor apy - co-tx with PT to maximizeon 09-29-2021 Rehab Note-occupational therapy - co-tx with PT to maximize Rehab: Info: Disciplineoccupational therapist Mode of Treatmentoccupational therapy; co-tx with PT to maximize pt's mobility and safety. Time IN14:30 Time OUT15:40 Total Treatment [id number] Patient in ... at end of sessionbed, 3 railings up; alarm off; not on at start of visit Communicated with ... at end of sessionbedside nurse Patient Effortexcellent Symptoms Noted During/After Treatmentfatigue Patient Response to TreatmentPt supine upon approach and agreeable to OT. Pt cooperative and pleasant. Pt tolerated increased activity with bed mobility, EOB sitting, STS transfers and static standing with Faye Plus lift. Patient/Family/Caregiver Comments/ObservationsPt stated she was very happy that she could feel the sensation of her feet on the floor. Pt reported she was pleased with standing today. Line and TubesIV; telemetry; purewick Vision/Cognition: Affect/Mental Status (Cognitive)WFL Orientation Status (Cognition)oriented x 3 Cognitive Function (Cognitive)safety deficit; executive function deficit Executive Function Deficit (Cognition)moderate deficit; insight/awareness of deficits; self-monitoring/self-correc tion; problem solving/reasoning Safety Deficit (Cognitive)moderate deficit; decreased awareness; impaired insight into deficits; self-awareness impairment; need for assistance Cognitive Interventions (Cognitive)external compensatory strategy training; internal compensatory strategy training; environmental modifications; occupation/activity based interventions; process/task specific training; process modification; reasoning/problem solving interventions; sensory stimulation Able to Follow Commands (Receptive)follows multi-step commands; over 90% accuracy; repetition of directions required; verbal cues/prompting required Mobility/Tone: Bed Mobility Assessment/Interventionsrol ling right; rolling left; scooting/bridging; supine to sit; sit to supine Roll Left [place] (Bed Mobility)maximum assist (25% patient effort); 2 person assist; verbal cues; nonverbal cues (demo/gesture); multiple rolls to adjust harness Roll Right [place] (Bed Mobility)maximum assist (25% patient effort); 2 person assist; verbal cues; nonverbal cues (demo/gesture); multiple rolls to adjust harness Scoot/Bridge [place] (Bed Mobility)maximum assist (25% patient effort); 2 person assist; nonverbal cues (demo/gesture); verbal cues; boost HOB Xysyzl-gh-Nry [place] (Bed Mobility)maximum assist (25% patient effort); 2 person assist; nonverbal cues (demo/gesture); verbal cues Vpr-sn-Dxyksf [place] (Bed Mobility)verbal cues; nonverbal cues (demo/gesture); maximum assist (25% patient effort); 2 person assist Assistive Device (Bed Mobility)draw sheet; bed rails Transfer Assessment/Interventionssit to stand transfer; stand to sit transfer Sit-Stand [place] (Transfers)dependent (less than 25% patient effort) Sit-Stand Assistive Device (Transfers)mechanical lift/aid; Faye Plus Stand-Sit [place] (Transfers)dependent (less than 25% patient effort) Stand-Sit Assistive Device (Transfers)mechanical lift/aid; Faye Plus Safety Issues Impacting Function (Mobility)awareness of need for assistance; insight into deficits/self awareness Impairments Impacting Function (Mobility)endurance/activit y tolerance; strength; balance; coordination; postural/trunk control ADL: BADL Assessment/Interventiontoil eting; feeding; grooming; lower body dressing; upper body dressing; bathing [place] Level (Bathing)set up; verbal cues; moderate assist (50% patient effort); 1 person assist Comment (Bathing)anticipated due to impaired balance, strength, and pain. [place] Level (Upper Body Dressing)set up; verbal cues; moderate assist (50% patient effort) Comment (Upper Body Dressing)anticipated due to impaired balance, strength, and pain. [place] Level (Lower Body Dressing)don; socks; dependent (less than 25% patient effort) Position (Lower Body Dressing)supine [place] Level (Grooming)set up; contact guard Comment (Grooming)anticipated due to impaired balance, strength, and pain. [place] Level (Feeding)set up; modified independence Comment (Feeding)anticipated [place] Level (Toileting)dependent (less than 25% patient effort); purewick Impairments, BADL Safety/Performancebalance; cognition; endurance/activity tolerance; strength; trunk/postural control Cognitive Impairments, BADL Safety/Performanceawareness , need for assistance; insight into deficits/self awareness; judgment; problem solving/reasoning Motor: Sitting, Static (Balance)good balance SBA Sitting, Dynamic (Balance)fair balance CGA Pub-ic-Urccz (Balance)poor balance Total A via Faye Plus lift Standing, Static (Balance)poor balance Max A x1 - via Faye Plus Standing, Dynamic (Balance)unable to balance Balance ActivitiesPt sat EOB ~20 minutes throughout session primarily with SB (more content not included)... [facility] Clinical Event Note-Medical Assessmenton 09-28-2021 Clinical Event Note-Medical Assessment Clinical Event: Clinical Event Note: TopicMedical Assessment Details Patient with acute on chronic constipation; PE: Gen: A&Ox3 HEENT: Normocephalic, atraumatic, PERRL; CVS: RR, S1 S2; Pulm: CTAB, no wheeze; Abd: Soft, NT/ND, +BS; Ext: Trace edema x 4, no calf tenderness; Neurological: A&Ox3 RUE D5, B5, T5, HG5, IO5 LUE D4+, B4+, T4+, HG4+, IO5 RLE HF 3, KE4-, PF1, DF1 LLE HF 4-, KE4-, PF1, DF1 Integ: Warm, dry, incision intact, drain with serosang. fluid; Psych: Mood appropriate; 46 year old female, medical history of HTN, substance use on Suboxone therapy, chronic back pain s/p T5-L4 fusion and C6-7 ACDF, T1 compression fracture s/p T11-12 lami c/b worsening kyphosis s/p L1 transpedicular decompression/SPOs/T5-L4 fusion (12/2020), and b/l ulnar neuropathies presented 09/15/21 with worsening thoracic kyphosis. Patient reported she had a ground level fall 2-3 months after surgery then began experiencing left sided radicular pain that gradually worsened since fall. Patient was taken to the OR on 09/18/21 for an extension of instrumentation to L6 to pelvis with reduction of L4-6 dislocation. MRI on 09/20/21 showed interval development of L4 stenosis and patient was taken to the OR on 09/21/21 for a L4/5 laminectomy with accessory kwame placement. Constipation - Patient with 1 bm this am; - KUB improved from yesterday - GI following - Cont. Miralax PO TID scheduled - Cont. docusate/senna #2 tabs PO BID - Mineral oil enema alternating with tap water enema L4Dbail - Bisacodyl suppository QHS Daily - Monitor Urinary Retention - Resolved; patient voiding on own; Post-operative Pain - POD 7 from L4/5 laminectomy with accessory kwame placement and POD 10 from a extension of instrumentation from L6 to pelvis with reduction of L4-6 dislocation; Patient on Suboxone therapy that was held prior to admission and surgery. Patient followed outpatient by Dr. Matthias Stallings; Chronic pain consulted and followed; - Surgical drain discontinued today; - Patient resumed home Suboxone therapy 8/2 mg SL Q12H - Cont. acetaminophen 650 mg PO Q6H scheduled - Discontinue scheduled and PRN Oxycodone - Cont. Gabapentin 800 mg PO TID - Cont. Tizanidine 2 mg PO Q8H - Cont. lidoderm patch topical daily - Patient followed outpatient by Dr. Stallings, Chronic pain - Cont. Oscal with Vitamin D PO BID x 3 months - No NSAIDs x 3 months - F/U for wound check 10[facility]07[facility]21 [facility] 10[facility]15 [facility] - F/U with Dr. Frederick 11/03/21 at 1400, [place] - Patient fitted for PRAFO boots by orthotics Hx HTN - VS still mild hypotension - Cont. HOLD home Lisinopril 20 mg PO Daily - Cont. HOLD home Furosemide 20 mg 1-2 tablets PO PRN LE edema Hx Current Smoker - Patient advised on smoking cessation - Nicotine patch 14 mg Topical Daily DVT Prophylaxis - BLE Duplex on 09/16/21 negative for DVTs - Cont. Heparin 5000 units SC Q8H Disposition - PT/OT evaluated and recommended acute rehabilitation; - Discharge team following - Patient medically ready for discharge - GF updated Time spent on the assessment of patient, gathering and interpreting data, review of medical record/patient history, personally reviewing radiographic imaging and formulation of this note 45 minutes; Electronic Signatures: Concetta Shi (ASSISTANT PROGRAM MANAGER-BROOM MAN) (Signed 28-Sep-2021 14:31) Authored: Clinical Event Note Last Updated: 28-Sep-2021 14:31 by Concetta Shi (ASSISTANT PROGRAM MANAGER-BROOM MAN) [facility] Daily Progress Note-Gastroen terologyon 09-28-2021 Daily Progress Note-Gastroenterolog y Service: Gastroenterology Subjective Data: MORALES LEE is a 46 year old Female who is Hospital Day # 14 and POD #7 for posterior L4-L5 decompression;posterior L4-L5 arthrodesis. No events overnight. Had one bowel movement this am. Otherwise no complaints. Objective Data: Objective Information: T PRBPSpO2 [id number]% Date/Time09/28 4:001 8: 8:001 8:001 8:00 Range(36C - 36.6C ) (73 - 87 ) (15 - 22 ) (92 - 136 )/ (48 - 74 ) (92% - 99% ) As of 28-Sep-2021 08:00:00, patient is on 2 L/min of oxygen via nasal cannula. Pain reported at 09/27 22:00: 0 = None ---- Intake and Output ----- Mn/Dy/Year TimeIntakeOutputNet Sep 28, 2021 6:00 am000 Sep 27, 2021 10:00 [id number] Sep 27, 2021 2:00 [id number] The Intake and Output Totals for the last 24 hours are: IntakeOutputNet [id number] Physical Exam by System: Constitutional: Constitutional: A&Ox3, no acute distress Eyes: PERRL, EOMI, clear sclera Respiratory/Thorax: decreased BS bilat Cardiovascular: RRR Gastrointestinal: abd mildly distended, soft, non tender Psychological: Appropriate mood and behavior Skin: Warm and dry, no lesions, no rashes Medication: Medications: Continuous Medications ----- 1. Sodium Chloride 0.9% Infusion: 1000 mL IntraVenous Scheduled Medications ----- 1. Acetaminophen: 650 mg Oral Every 6 Hours 2. Bisacodyl Rectal: 10 mg Rectal Every Night 3. Buprenorphine 8 mg - Naloxone 2 mg SubLingual: 1 tablet(s) SubLingual Every 12 Hours 4. Calcium 500 mg - Vitamin D 200 Units: 1 tablet(s) Oral 2 Times a Day 5. Docusate 50 mg - Senna 8.6 m tablet(s) Oral 2 Times a Day 6. DULoxetine: 30 mg Oral Daily 7. Gabapentin: 800 mg Oral 3 Times a Day 8. Heparin SubCutaneous: 5000 unit(s) SubCutaneous Every 8 Hours 9. Lidocaine 5% TransDermal: 1 patch TransDermal Every 24 Hours 10. Nicotine 14 mg/ 24 hour TransDermal: 1 patch TransDermal Every 24 Hours 11. oxyCODONE Immediate Release: 5 mg Oral Every 6 Hours 12. Pantoprazole Injectable: 40 mg IntraVenous Push Every 24 Hours 13. Polyethylene Glycol: 17 gram(s) Oral 3 Times a Day 14. tiZANidine: 2 mg Oral Every 8 Hours 15. Zolpidem: 10 mg Oral At Bedtime PRN Medications ----- 1. Bisacodyl Rectal: 10 mg Rectal Daily 2. diazePAM (VALIUM): 5 mg Oral Every 8 Hours 3. Fleet Adult (Sodium Phosphate) Rectal: 1 enema Rectal Daily 4. Naloxone Injectable: 0.2 mg IntraVenous Push Once 5. Ondansetron Injectable: 4 mg IntraVenous Push Every 6 Hours 6. oxyCODONE Immediate Release: 10 mg Oral Every 4 Hours 7. oxyCODONE Immediate Release: 5 mg Oral Every 4 Hours 8. Promethazine IV Piggy Back: 25 mg IntraVenous Piggyback Every 6 Hours 9. Simethicone: 80 mg Oral 4 Times a Day After Meals Currently Suspended Medications ----- 1. Lisinopril: 20 mg Oral Daily Recent Lab Results: Results: RFP: 09/27/2021 14:14 NA+ Cl- BUN / 137 98 6 / ----- Glucose 91 K+ HCO3- Creat \ 4.1 26 0.44 L \ Calcium : 8.5 LAnion Gap : 17 Albumin : 3.3 L Phos : 4.0 Assessment and Plan: Code Status: Code StatusFull Code Assessment: 46 year old Female with hx of C6-7 ACDFF, T1 comp fx s/p T11-12 lami c/b worseing kyphosis s/p 12/2020 L1 transpedic decompression/SPOs/T5-L4 fusion, b/l ulnar neuorpathies p/w thoracic kyphosis now s/p extension of instrumentation to L5 to pelvis w/reduction of L4-5 dislocation on 09/18 and s/p L4/5 lami, accessory kwame placement n 09/21. GI is consulted for constipation. She does have clinical and radiographic signs of severe constipation, and has known chronic constipation based on history. Not showing signs of clinical obstruction given passing flatus. At this time, her constipation/ileus is likely multifactorial in setting of recent major surgery, chronic suboxone/post-op opioid needs, and immobilization. There are no alarm symptoms such as GI bleeding warranting urgent endoscopy at this time. Would benefit from conservative treatment with aggressive bowel regimen and ileus management. Recs: -continue scheduled miralax TID and doc/senna BID (please ensure patient taking as has refused dose previously) -recommend enema PRN (can alternate with tap water and mineral oil) and bisacodyl suppository Qpm (can switch to PRN enemas when patient is having regular bowel movements). -continue anti-emetics as needed (consider scheduling anti-emetics if needed) -avoid opioids/anti-cholinergics/C CB's -monitor electrolytes (especially K and Mg) and replete as needed -encourage ambulation as tolerated (if non-ambulatory, please turn in bed Q2-3 hours for mobilization) -if no BM's with above regimen, can consider Relistor injection given chronic opioid history, however recommend tr (more content not included)... [facility] Daily Progress Note-Neurosjudy stearns 09-28-2021 Daily Progress Note-Neurosurgery Service: Neurosurgery Subjective Data: MORALES LEE is a 46 year old Female who is Hospital Day # 14 and POD #7 for posterior L4-L5 decompression;posterior L4-L5 arthrodesis. Objective Data: Objective Information: T PRBPSpO2 [id number]% Date/Time09/28 4: 4: 4: 4: 4:00 Range(36C - 36.6C ) (72 - 87 ) (15 - 22 ) (92 - 153 )/ (48 - 113 ) (92% - 99% ) As of 27-Sep-2021 22:00:00, patient is on 2 L/min of oxygen via nasal cannula. Pain reported at 09/27 22:00: 0 = None ---- Intake and Output ----- Mn/Dy/Year TimeIntakeOutputNet Sep 26, 2021 10:00 [id number] Sep 26, 2021 2:00 [id number] The Intake and Output Totals for the last 24 hours are: IntakeOutputNet [id number] Physical Exam by System: Neurological: A&Ox3 RUE D5, B5, T5, HG5, IO5 LUE D4+, B4+, T4+, HG4+, IO5 RLE HF 3, KE4-, PF1, DF0 LLE HF 4-, KE4-, PF2, DF1 Recent Lab Results: Results: RFP: 09/27/2021 14:14 NA+ Cl- BUN / 137 98 6 / ----- Glucose 91 K+ HCO3- Creat \ 4.1 26 0.44 L \ Calcium : 8.5 LAnion Gap : 17 Albumin : 3.3 L Phos : 4.0 Assessment and Plan: Code Status: Code StatusFull Code Assessment: Pt is a 46 yo F w/ h/o HTN, C6-7 ACDFF, T1 comp fx s/p T11-12 lami c/b worseing kyphosis s/p 12/2020 L1 transpedic decompression/SPOs/T5-L4 fusion, b/l ulnar neuorpathies p/w thoracic kyphosis. 09/16 BLE DVT US negative 09/18 s/p extension of instrumentation to L5 to pelvis w/reduction of L4-5 dislocation, post op w/no dorsiflexion or toe wiggle, CT LS hardware in correct position 09/20 hypotensive w/ pt Hgb drop s/p 1u pRBC, incr to MRI TS/LS L4 stenosis 09/21 s/p L4/5 lami, accessory kwame placement 09/28 Prevena/drain dc'd Plan: tele AFO Chronic pain recs COWS psych recs alvares for retention SCDs, SQH PTOT-rehab Attestation: Note Completion: I am a: Resident/Fellow Attending AttestationI saw and evaluated the patient. I personally obtained the schofield and critical portions of the history and physical exam or was physically present for schofield and critical portions performed by the resident/fellow. I reviewed the resident/fellows documentation and discussed the patient with the resident/fellow. I agree with the resident/fellows medical decision making as documented in the note. I personally evaluated the patient [id number] Electronic Signatures: Fidel Maciel (Resident)) (Signed 28-Sep-2021 05:47) Authored: Service, Subjective Data, Objective Data, Assessment and Plan, Note Completion Lex Frederick) (Signed 28-Sep-2021 07:32) Authored: Note Completion Co-Signer: Service, Subjective Data, Objective Data, Assessment and Plan, Note Completion Last Updated: 28-Sep-2021 07:32 by Lex Frederick) [facility] RENAL FUNCTION PANELon 09-28 Albumin [Mass/Vol] 3.1 g/dL Low 3.4 - 5.0 [facility] Comment on above: Performed By: #### R ENAL ####[id number] [place] [address] Anion gap [Moles/Vol] 17 mmol/L Normal 10 - 20 [facility] Comment on above: Performed By: #### R ENAL ####[id number] [place] [address] Calcium [Mass/Vol] 8.4 mg/dL Low 8.6 - 10.6 [facility] Comment on above: Performed By: #### R ENAL ####[id number] [place] [address] Chloride [Moles/Vol] 102 mmol/L Normal 98 - 107 [facility] Comment on above: Performed By: #### R ENAL ####[id number] [place] [address] Creatinine [Mass/Vol] 0.47 mg/dL Low 0.50 - 1.05 [facility] Comment on above: Performed By: #### R ENAL ####[id number] [place] [address] eGFR FEMALE >90 Normal >90 [facility] Comment on above: Result Comment: CALC ULATIONS OF ESTIMATED GFR ARE PERFORMED USING THE 2020 CKD-EPI STUDY REFIT EQUATION WITHOUT THE RACE VARIABLE FOR THE IDMS-TRACEABLE CREATININE METHODS. https://jasn.asnjournals.org/content/early//ASN.8473798 988 Performed By: #### R ENAL ####[id number] [place] [address] Glucose [Mass/Vol] 74 mg/dL Normal 74 - 99 [facility] Comment on above: Performed By: #### R ENAL ####[id number] [place] [address] HCO3 (Bld) [Moles/Vol] 27 mmol/L Normal 21 - 32 [facility] Comment on above: Performed By: #### R ENAL ####[id number] [place] [address] Phosphate [Mass/Vol] 3.4 mg/dL Normal 2.5 - 4.9 [facility] Comment on above: Result Comment: The performance characteristics of phosphorus testing in heparinized plasma have been validated by the individual laboratory site where testing is performed. Testing on heparinized plasma is not approved by the FDA; however, such approval is not necessary. Performed By: #### R ENAL ####[id number] [place] [address] Potassium [Moles/Vol] 3.7 mmol/L Normal 3.5 - 5.3 [facility] Comment on above: Performed By: #### R ENAL ####[id number] [place] [address] Sodium [Moles/Vol] 142 mmol/L Normal 136 - 145 [facility] Comment on above: Performed By: #### R ENAL ####[id number] [place] [address] Urea nitrogen [Mass/Vol] 6 mg/dL Normal 6 - 23 [facility] Comment on above: Performed By: #### R ENAL ####[id number] [place] [address] Radiologyon 09-28-2021 XR Abdomen AP Normal [facility]-Gastroen terology-[place] [facility] Work Phone: Rehab Note-attemptedon 09-28 Rehab Note-attempted Rehab: Info: Disciplinephysical physical therapy supervisor Mode of Treatmentattempted Time IN15:30 Reason Treatment Not Performedpatient/family declined treatment, not feeling well Treatment Considerations/CommentsPt declined therapy at this time 2* increased fatigue, nausea. Pt stated NO! NO! NO! upon therapists arrival, even /c increased encouragement. Will reattempt as schedule allows. Short Term Goals: Bed Mobility: Date [id number] Bed Mobility: [place] Level Goalminimum assist (75% patients effort) Bed Mobility: Physical Assist Level Goal1-person assist, verbal cues Bed Mobility: Time Frame for Goal2 wks Transfer: Established [id number] Transfer: Transfer Type Jcklghw-tx-wxgyf/chair-to-b ed; akp-ve-pjhwy/jzbiv-yk-nqq Transfer: [place] Level Goalmoderate assist (50% patients effort) Transfer: Physical Assist Level Goal1-person assist; verbal cues Transfer: Assistive Device Goalrolling walker Transfer: Time Frame for Goal2 wks Gait: Established [id number] Gait: [place] Level Goalmoderate assist (50% patients effort) Gait: Physical Assist Level1-person assist; verbal cues Gait: Assistive Device Goalrolling walker Gait: Distance Goal15 feet Gait: Time Frame for Goal2 wks Balance: Established [id number] Balance: Goal DetailsSitting EOB 20 minutes with 0-1 UE support, SBA for static sitting, CGA for dynamic. Standing 1 minute with FWW and CGA Electronic Signatures: Yosi Campbell (WEB DEVELOPMENT MANAGER) (Signed 28-Sep-2021 15:32) Entered: Short Term Goals, Info Authored: Info, Short Term Goals Boone Broussard (PT) (Signed 01-Oct-2021 09:01) Co-Signer: Short Term Goals, Info Last Updated: 01-Oct-2021 09:01 by Boone Broussard (PT) [facility] Rehab Note-attempted Rehab: Info: Mode of Treatmentattempted Time IN15:00 Reason Treatment Not Performedpatient/family declined treatment; Pt labile upon approach, observed immediately forcefully closing eyes and shaking head stating no, no, no, no! Pt stated she had a hellacious weekend undergoing withdrawal. Pt stated she was extremely fatigued and sick. Pt continuously refused to participate in therapy despite encouragement and education. Electronic Signatures: Silvana Marshall (OT) (Signed 28-Sep-2021 15:28) Authored: Info Last Updated: 28-Sep-2021 15:28 by Silvana Marshall (OT) Normal [facility] Renal Function Panelon 09-28 Albumin BCP dye [Mass/Vol] 3.1 g/dL below low threshold 3.4 - 5.0 [facility] [facility] Work Phone: Anion gap [Moles/Vol] 17 mmol/L 10 - 20 [facility] [facility] Work Phone: Calcium [Mass/Vol] 8.4 mg/dL below low threshold 8.6 - 10.6 [facility] [facility] Work Phone: Chloride [Moles/Vol] 102 mmol/L 98 - 107 [facility] [facility] Work Phone: CO2 [Moles/Vol] 27 mmol/L 21 - 32 [facility] [facility] Work Phone: Creatinine [Mass/Vol] 0.47 mg/dL below low threshold See Below [facility] [facility] Work Phone: Comment on above: Reference Range: 0.5 0 - 1.05 Glucose [Mass/Vol] 74 mg/dL 74 - 99 [facility] [facility] Work Phone: Phosphate [Mass/Vol] 3.4 mg/dL 2.5 - 4.9 [facility] [facility] Work Phone: Comment on above: The performance arsalan acteristics of phosphorus testing in heparinized plasma have been validated by the individual laboratory site where testing is performed. Testing on heparinized plasma is not approved by the FDA; however, such approval is not necessary. Potassium [Moles/Vol] 3.7 mmol/L 3.5 - 5.3 [facility] [facility] Work Phone: Sodium [Moles/Vol] 142 mmol/L 136 - 145 [facility] [facility] Work Phone: Urea nitrogen [Mass/Vol] 6 mg/dL 6 - 23 [facility] [facility] Work Phone: Renal Function Panel >90 >90 [facility] [facility] Work Phone: Comment on above: CALCULATIONS OF IVY MATED GFR ARE PERFORMED USING THE 2020 CKD-EPI STUDY REFIT EQUATION WITHOUT THE RACE VARIABLE FOR THE IDMS-TRACEABLE CREATININE METHODS.https://jasn.asnjournals.org/content/early/ASN .0894410785 TH ABDOMEN AP VIEWon 022 ABDOMEN AP VIEW Patient Name: MORALES LEE STUDY: ABDOMEN AP VIEW; 09/28/2021 1:22 pm INDICATION: Abd. dist. . COMPARISON: 09/27/2021 abdominal radiograph. ACCESSION NUMBER(S): [id number] ORDERING CLINICIAN: CONCETTA SHI FINDINGS: Two AP supine views of the abdomen were provided. Midline danya overlie the abdomen. Nonobstructive bowel gas pattern with slightly improved gaseous prominence of the large bowel. Stomach appears less distended. Persistent fecal loading of the colon. Limited evaluation of pneumoperitoneum on supine imaging, however no gross evidence of free air is noted. Visualized lungs demonstrate bibasilar opacification with blunting of the right CP angle. Osseous structures demonstrate no acute bony changes. Redemonstration of posterolateral pedicle screw and kwame fixation of the thoracolumbar spine with screw fixation of the bilateral iliac bones. IMPRESSION: 1. Nonobstructive bowel gas pattern. Persistent moderate to severe colonic stool burden. 2. Postsurgical changes as above. 3. Partially visualized bibasilar opacities suggestive of atelectasis, with a suspected small right pleural effusion. I personally reviewed the images/study and I agree with the findings as stated. This study was interpreted at [facility], [place], [place]. Electronically signed by: TANIKA SUTTON MD [facility] Consult-Gastroenterologyon 0 09-27-2021 Consult-Gastroentero logy Service: Service: Gastroenterology Consult: Consult requested by (Attending Name): Dr. Ortega Reason: constipation History of Present Illness: HPI: MORALES LEE is a 46 year old Female with hx of C6-7 ACDFF, T1 comp fx s/p T11-12 lami c/b worseing kyphosis s/p 12/2020 L1 transpedic decompression/SPOs/T5-L4 fusion, b/l ulnar neuorpathies p/w thoracic kyphosis now s/p extension of instrumentation to L5 to pelvis w/reduction of L4-5 dislocation on 09/18 and s/p L4/5 lami, accessory kwame placement n 09/21. GI is consulted for constipation. Patient reports that her last BM was about 10 days ago before admission and her surgeries, and she has a known hx of chronic constipation going once every 7-10 days at home. She is on suboxone at home which she says is why her bowel habits are very altered. She does take miralax few times daily at home however still has very infrequent BM's at home. She denies any melena or hematochezia. Since admission, she has not had a BM either however is passing flatus. She does report feeling some abdominal distention and intermittent nausea and few episodes of bilious vomiting, and due to the n/v she has not been eating. KUB was done this morning showing no obstruction but large colonic stool burden. Of note, she has been on narcotics since admission for post-op pain including a dilaudid CORRESPONDENT. Has been on scheduled bowel regimen with miralax and doc/senna however per chart review patient has refused some doses. She does state she had a colonoscopy 10+ years ago at an OSH however does not remember the results. Also had an EGD at an OSH 10+ years ago and was found to have PUD and takes a PPI at home. Denies any family hx of colorectal cancer. PMH: as stated above PSH: as stated above Meds: reviewed in chart Allergies: reviewed in chart 12 point ROS negative except per above. Allergies: Seroquel: Seizure codeine: Unknown penicillin: Unknown Objective: Objective Information: T PRBPSpO2 [id number]% Date/Time09/27 4: 4: 4: 4:00 Range (76 - 82 ) (19 - 22 ) (119 - 162 )/ (65 - 101 ) (90% - 95% ) Physical Exam by System: Constitutional: A&Ox3, no acute distress Eyes: PERRL, EOMI, clear sclera Respiratory/Thorax: decreased BS bilat Cardiovascular: RRR Gastrointestinal: abd mildly distended, soft, non tender Psychological: Appropriate mood and behavior Skin: Warm and dry, no lesions, no rashes Medications: Medications: Continuous Medications ----- 1. Sodium Chloride 0.9% Infusion: 1000 mL IntraVenous Scheduled Medications ----- 1. Acetaminophen: 650 mg Oral Every 6 Hours 2. Buprenorphine 8 mg - Naloxone 2 mg SubLingual: 1 tablet(s) SubLingual Every 12 Hours 3. Calcium 500 mg - Vitamin D 200 Units: 1 tablet(s) Oral 2 Times a Day 4. Docusate 50 mg - Senna 8.6 m tablet(s) Oral 2 Times a Day 5. DULoxetine: 30 mg Oral Daily 6. Gabapentin: 800 mg Oral 3 Times a Day 7. Heparin SubCutaneous: 5000 unit(s) SubCutaneous Every 8 Hours 8. Lidocaine 5% TransDermal: 1 patch TransDermal Every 24 Hours 9. Magnesium Citrate Oral Liquid: 300 mL Oral Once 10. Nicotine 14 mg/ 24 hour TransDermal: 1 patch TransDermal Every 24 Hours 11. oxyCODONE Immediate Release: 5 mg Oral Every 6 Hours 12. Polyethylene Glycol: 17 gram(s) Oral 3 Times a Day 13. tiZANidine: 2 mg Oral Every 8 Hours 14. Zolpidem: 10 mg Oral At Bedtime PRN Medications ----- 1. Bisacodyl Rectal: 10 mg Rectal Daily 2. diazePAM (VALIUM): 5 mg Oral Every 8 Hours 3. Fleet Adult (Sodium Phosphate) Rectal: 1 enema Rectal Daily 4. Naloxone Injectable: 0.2 mg IntraVenous Push Once 5. Ondansetron Injectable: 4 mg IntraVenous Push Every 6 Hours 6. oxyCODONE Immediate Release: 10 mg Oral Every 4 Hours 7. oxyCODONE Immediate Release: 5 mg Oral Every 4 Hours 8. Promethazine IV Piggy Back: 25 mg IntraVenous Piggyback Every 6 Hours 9. Simethicone: 80 mg Oral 4 Times a Day After Meals Currently Suspended Medications ----- 1. Lisinopril: 20 mg Oral Daily Recent Lab Results: Results: I have reviewed these laboratory results: Renal Function Panel 24-Sep-2021 06:20:00 ResultValue Glucose, Serum 92 NA 143 K 3.9 CL 108 H Bicarbonate, Serum 29 Anion Gap, Serum 10 BUN 5 L CREAT 0.39 L GFR Female >90 Calcium, Serum 7.7 L Phosphorus, Serum 3.3 ALB 2.6 L Magnesium, Serum 24-Sep-2021 06:20:00 ResultValue Magnesium, Serum 1.71 Radiology Results: Results: Impression: 1. Nonobstructive bowel gas pattern with gaseous prominence of the stomach and large bowel. There is a large colonic stool burden, consistent with history of constipation. Xray Abdomen AP View [Sep 27 2021 7:43AM] Assessment: 46 year old Female with hx of C6-7 ACDFF, (more content not included)... Normal [facility] Daily Progress Note-Neurosur jinny 09-27-2021 Daily Progress Note-Neurosurgery Service: Neurosurgery Subjective Data: MORALES ELE is a 46 year old Female who is Hospital Day # 13 and POD #6 for posterior L4-L5 decompression;posterior L4-L5 arthrodesis. Objective Data: Objective Information: T PRBPSpO2 [id number]% Date/Time09/26 11:0809/27 4: 4: 4: 4:00 Range(37C - 37C ) (76 - 82 ) (19 - 24 ) (115 - 162 )/ (65 - 101 ) (90% - 95% ) As of 26-Sep-2021 11:08:00, patient is on 2 L/min of oxygen via nasal cannula. Highest temp of 37 C was recorded at 09/26 11:08 Pain reported at 09/26 21:00: 8 = Severe ---- Intake and Output ----- Mn/Dy/Year TimeIntakeOutputNet Sep 27, 2021 6:00 am000 Sep 26, 2021 10:00 [id number] Sep 26, 2021 2:00 [id number] The Intake and Output Totals for the last 24 hours are: IntakeOutputNet [id number] Physical Exam by System: Neurological: A&Ox3 RUE D5, B5, T5, HG5, IO5 LUE D4+, B4+, T4+, HG4+, IO5 RLE HF 3, KE4-, PF1, DF1 LLE HF 4-, KE4-, PF1, DF0 Recent Lab Results: Results: RFP: 09/24/2021 06:20 NA+ Cl- BUN / 143 108 H 5 L / ----- Glucose 92 K+ HCO3- Creat \ 3.9 29 0.39 L \ Calcium : 7.7 LAnion Gap : 10 Albumin : 2.6 L Phos : 3.3 Assessment and Plan: Code Status: Code StatusFull Code Assessment: Pt is a 46 yo F w/ h/o HTN, C6-7 ACDFF, T1 comp fx s/p T11-12 lami c/b worseing kyphosis s/p 12/2020 L1 transpedic decompression/SPOs/T5-L4 fusion, b/l ulnar neuorpathies p/w thoracic kyphosis. 09/16 BLE DVT US negative 09/18 s/p extension of instrumentation to L5 to pelvis w/reduction of L4-5 dislocation, post op w/no dorsiflexion or toe wiggle, CT LS hardware in correct position 09/20 hypotensive w/ pt Hgb drop s/p 1u pRBC, incr to MRI TS/LS L4 stenosis 09/21 s/p L4/5 lami, accessory kwame placement Plan: tele Drain/Prevena AFO Chronic pain recs COWS psych recs alvares for retention SCDs, SQH PTOT-rehab Attestation: Note Completion: I am a: Resident/Fellow Attending AttestationI saw and evaluated the patient. I personally obtained the schofield and critical portions of the history and physical exam or was physically present for schofield and critical portions performed by the resident/fellow. I reviewed the resident/fellows documentation and discussed the patient with the resident/fellow. I agree with the resident/fellows medical decision making as documented in the note. I personally evaluated the patient [id number] Electronic Signatures: Chaparro Umana (Resident)) (Signed 27-Sep-2021 06:11) Authored: Service, Subjective Data, Objective Data, Assessment and Plan, Note Completion Natalia Palacios) (Signed 08-Oct-2021 14:31) Authored: Note Completion Co-Signer: Service, Subjective Data, Objective Data, Assessment and Plan, Note Completion Last Updated: 08-Oct-2021 14:31 by Natalia Palacios) Normal [facility] MAGNESIUMon 09-27-2021 Magnesium [Mass/Vol] 1.80 mg/dL Normal 1.60 - 2.40 [facility] Comment on above: Performed By: #### C BC #### [facility] [address] [place] [address] Magnesium, Serumon Magnesium [Mass/Vol] 1.80 mg/dL See Below [facility] [facility] Work Phone: Comment on above: Reference Range: 1.6 0 - 2.40 RENAL FUNCTION PANELon 09-27 Albumin [Mass/Vol] 3.3 g/dL Low 3.4 - 5.0 [facility] Comment on above: Performed By: #### R ENAL #### [facility] [address] [place] [address] Anion gap [Moles/Vol] 17 mmol/L Normal 10 - 20 [facility] Comment on above: Performed By: #### R ENAL #### [facility] [address] [place] [address] Calcium [Mass/Vol] 8.5 mg/dL Low 8.6 - 10.6 [facility] Comment on above: Performed By: #### R ENAL #### [facility] [address] [place] [address] Chloride [Moles/Vol] 98 mmol/L Normal 98 - 107 [facility] Comment on above: Performed By: #### R ENAL #### [facility] [address] [place] [address] Creatinine [Mass/Vol] 0.44 mg/dL Low 0.50 - 1.05 [facility] Comment on above: Performed By: #### R ENAL #### [facility] [address] [place] [address] eGFR FEMALE >90 Normal >90 [facility] Comment on above: Result Comment: CALC ULATIONS OF ESTIMATED GFR ARE PERFORMED USING THE 2020 CKD-EPI STUDY REFIT EQUATION WITHOUT THE RACE VARIABLE FOR THE IDMS-TRACEABLE CREATININE METHODS. https://jasn.asnjournals.org/content/early/ASN.9019520 988 Performed By: #### R ENAL #### [facility] [address] [place] [address] Glucose [Mass/Vol] 91 mg/dL Normal 74 - 99 [facility] Comment on above: Performed By: #### R ENAL #### [facility] [address] [place] [address] HCO3 (Bld) [Moles/Vol] 26 mmol/L Normal 21 - 32 [facility] Comment on above: Performed By: #### R ENAL #### [facility] [address] [place] [address] Phosphate [Mass/Vol] 4.0 mg/dL Normal 2.5 - 4.9 [facility] Comment on above: Result Comment: The performance characteristics of phosphorus testing in heparinized plasma have been validated by the individual laboratory site where testing is performed. Testing on heparinized plasma is not approved by the FDA; however, such approval is not necessary. Performed By: #### R ENAL #### [facility] [address] [place] [address] Potassium [Moles/Vol] 4.1 mmol/L Normal 3.5 - 5.3 [facility] Comment on above: Performed By: #### R ENAL #### [facility] [address] [place] [address] Sodium [Moles/Vol] 137 mmol/L Normal 136 - 145 [facility] Comment on above: Performed By: #### R ENAL #### [facility] [address] [place] [address] Urea nitrogen [Mass/Vol] 6 mg/dL Normal - [facility] Comment on above: Performed By: #### R ENAL #### [facility] [address] [place] [address] Radiologyon 09-27-2021 XR Abdomen AP Normal [facility] [facility] Work Phone: Renal Function Panelon 09-27 Albumin BCP dye [Mass/Vol] 3.3 g/dL below low threshold 3.4 - 5.0 [facility] [facility] Work Phone: Anion gap [Moles/Vol] 17 mmol/L 10 - 20 [facility] [facility] [facility] Work Phone: Calcium [Mass/Vol] 8.5 mg/dL below low threshold 8.6 - 10.6 [facility] [facility] [facility] Work Phone: Chloride [Moles/Vol] 98 mmol/L 98 - 107 [facility] [facility] Work Phone: CO2 [Moles/Vol] 26 mmol/L 21 - 32 [facility] [facility] [facility] Work Phone: Creatinine [Mass/Vol] 0.44 mg/dL below low threshold See Below [facility] [facility] Work Phone: Comment on above: Reference Range: 0.5 0 - 1.05 Glucose [Mass/Vol] 91 mg/dL 74 - 99 [facility] [facility] Work Phone: Phosphate [Mass/Vol] 4.0 mg/dL 2.5 - 4.9 [facility] [facility] Work Phone: Comment on above: The performance arsalan acteristics of phosphorus testing in heparinized plasma have been validated by the individual laboratory site where testing is performed. Testing on heparinized plasma is not approved by the FDA; however, such approval is not necessary. Potassium [Moles/Vol] 4.1 mmol/L 3.5 - 5.3 [facility] [facility] [facility] Work Phone: Sodium [Moles/Vol] 137 mmol/L 136 - 145 [facility] [facility] Work Phone: Urea nitrogen [Mass/Vol] 6 mg/dL 6 - 23 [facility] [facility] Work Phone: Renal Function Panel >90 >90 [facility] [facility] Work Phone: Comment on above: CALCULATIONS OF IVY MATED GFR ARE PERFORMED USING THE 2020 CKD-EPI STUDY REFIT EQUATION WITHOUT THE RACE VARIABLE FOR THE IDMS-TRACEABLE CREATININE METHODS.https://jasn.asnjournals.org/content//ASN .1629111834 ABDOMEN AP VIEWon 022 ABDOMEN AP VIEW Patient Name: MORALES LEE STUDY: ABDOMEN AP VIEW; 09/27/2021 2:33 am INDICATION: vomiting, constipation . COMPARISON: None. ACCESSION NUMBER(S): [id number] ORDERING CLINICIAN: FIDEL MACIEL FINDINGS: 2 AP views of the abdomen and pelvis. There are midline skin danya acting over the abdomen. Nonobstructive bowel gas pattern. There is gaseous distension of the stomach and the ascending colon measuring up to 5.4 cm. There is a large colonic stool burden. Limited evaluation of pneumoperitoneum on supine imaging, however no gross evidence of free air is noted. Visualized lungs are clear. Osseous structures demonstrate no acute bony changes. There is posterolateral pedicle screw and kwame fixation of the thoracolumbar spine, with screw fixation of the bilateral sacral and iliac bones.. IMPRESSION: 1. Nonobstructive bowel gas pattern with gaseous prominence of the stomach and large bowel. There is a large colonic stool burden, consistent with history of constipation. I personally reviewed the images/study and I agree with the findings as stated. This study was interpreted at [place], [place]. Electronically signed by: DWIGHT MOY MD [facility] Daily Progress Note-Neurosur jinny 09-26-2021 Daily Progress Note-Neurosurgery Service: Neurosurgery Subjective Data: MORALES LEE is a 46 year old Female who is Hospital Day # 12 and POD #5 for posterior L4-L5 decompression;posterior L4-L5 arthrodesis. Objective Data: Objective Information: T PRBPSpO2 [id number]% Date/Time09/25 17: 12: 17: 17:08 Range (68 - 98 ) (21 - 23 ) (118 - 136 )/ (69 - 82 ) (92% - 99% ) Pain reported at 09/26 3:00: sleeping ---- Intake and Output ----- Mn/Dy/Year TimeIntakeOutputNet Sep 24, 2021 10:00 [id number] Sep 24, 2021 2:00 [id number] Sep 24, 2021 6:00 [id number] The Intake and Output Totals for the last 24 hours are: IntakeOutputNet [id number] Physical Exam by System: Neurological: A&Ox3 RUE D5, B5, T5, HG5, IO5 LUE D4+, B4+, T4+, HG4+, IO5 RLE HF 3, KE4-, PF1, DF1 LLE HF 4-, KE4-, PF1, DF0 Recent Lab Results: Results: RFP: 09/24/2021 06:20 NA+ Cl- BUN / 143 108 H 5 L / ----- Glucose 92 K+ HCO3- Creat \ 3.9 29 0.39 L \ Calcium : 7.7 LAnion Gap : 10 Albumin : 2.6 L Phos : 3.3 Assessment and Plan: Code Status: Code StatusFull Code Assessment: Pt is a 46 yo F w/ h/o HTN, C6-7 ACDFF, T1 comp fx s/p T11-12 lami c/b worseing kyphosis s/p 12/2020 L1 transpedic decompression/SPOs/T5-L4 fusion, b/l ulnar neuorpathies p/w thoracic kyphosis. 09/16 BLE DVT US negative 09/18 s/p extension of instrumentation to L5 to pelvis w/reduction of L4-5 dislocation, post op w/no dorsiflexion or toe wiggle, CT LS hardware in correct position 09/20 hypotensive w/ pt Hgb drop s/p 1u pRBC, incr to MRI TS/LS L4 stenosis 09/21 s/p L4/5 lami, accessory kwame placement Plan: tele Drain/Prevena AFO Chronic pain recs COWS psych recs alvares for retention SCDs, SQH PTOT-rehab Attestation: Note Completion: I am a: Resident/Fellow Attending AttestationI saw and evaluated the patient. I personally obtained the schofield and critical portions of the history and physical exam or was physically present for schofield and critical portions performed by the resident/fellow. I reviewed the resident/fellows documentation and discussed the patient with the resident/fellow. I agree with the resident/fellows medical decision making as documented in the note. I personally evaluated the patient [id number] Electronic Signatures: Jaya Mosquera (Resident)) (Signed 26-Sep-2021 07:08) Authored: Service, Subjective Data, Objective Data, Assessment and Plan, Note Completion Natalia Palacios) (Signed 08-Oct-2021 14:10) Authored: Note Completion Co-Signer: Service, Subjective Data, Objective Data, Assessment and Plan, Note Completion Last Updated: 08-Oct-2021 14:10 by Natalia Palacios) Normal [facility] Clinical Event Note-POD 4 / Abdominal assessmenton 09-25-2021 Clinical Event Note-POD 4 / Abdominal assessment Clinical Event: Clinical Event Note: TopicPOD 4 / Abdominal assessment Details Patient is POD 4 from a L4/5 laminectomy with accessory kwame placement and POD 7 from a extension of instrumentation from L6 to pelvis with reduction of L4-6 dislocation; PE: Gen: A&Ox3 HEENT: Normocephalic, atraumatic, PERRL; CVS: RR, S1 S2; Pulm: CTAB, no wheeze; Abd: Soft, NT/ND, +BS; Ext: Trace edema x 4, no calf tenderness; Neurological: A&Ox3 RUE D5, B5, T5, HG5, IO5 LUE D4+, B4+, T4+, HG4+, IO5 RLE HF 3, KE4-, PF1, DF1 LLE HF 4-, KE4-, PF1, DF1 Integ: Warm, dry, incision intact, drain with serosang. fluid; Psych: Mood appropriate; 46 year old female, medical history of HTN, substance use on Suboxone therapy, chronic back pain s/p T5-L4 fusion and C6-7 ACDF, T1 compression fracture s/p T11-12 lami c/b worsening kyphosis s/p L1 transpedicular decompression/SPOs/T5-L4 fusion (12/2020), and b/l ulnar neuropathies presented 09/15/21 with worsening thoracic kyphosis. Patient reported she had a ground level fall 2-3 months after surgery then began experiencing left sided radicular pain that gradually worsened since fall. Patient was taken to the OR on 09/18/21 for an extension of instrumentation to L6 to pelvis with reduction of L4-6 dislocation. MRI on 09/20/21 showed interval development of L4 stenosis and patient was taken to the OR on 09/21/21 for a L4/5 laminectomy with accessory kwame placement. Constipation - no bm noted in EMR for many days. Patient states since she is on Suboxone therapy at home she experiences chronic constipation and uses Miralax multiple times daily; - Abdominal exam benign, +BS, abdomen soft, NT/ND; - Start Miralax PO TID scheduled - Cont. docusate/senna #2 tabs PO BID - Monitor Urinary Retention - Patient straight cath. x 1 for 850 mL last evening - Bladder scan - Treat constipation Post-operative Pain - POD 4 from L4/5 laminectomy with accessory kwame placement and POD 7 from a extension of instrumentation from L6 to pelvis with reduction of L4-6 dislocation; Patient on Suboxone therapy that was held prior to admission and surgery. Patient followed outpatient by Dr. Matthias Stallings; Chronic pain consulted and followed; - Surgical drain with 160 mL / 10 mL output past 24H/8 hours -> discontinue prior to d/c - Cont. acetaminophen 650 mg PO Q6H scheduled - Cont. Oxycodone 5 mg PO Q6H scheduled - Cont. Oxycodone 5, 10 mg PO Q4H PRN Moderate to Severe Pain - Cont. Gabapentin 800 mg PO TID - Cont. Tizanidine 2 mg PO Q8H - Cont. lidoderm patch topical daily - Patient will follow up with Dr. Stallings to resume Suboxone therapy as an outpatient - Cont. Oscal with Vitamin D PO BID x 3 months - No NSAIDs x 3 months - F/U for wound check 10/07/21 at 10:15 am, [facility] 5th floor - F/U with Dr. Frederick 11/03/21 at 1400, [facility] - Patient fitted for PRAFO boots by orthotics Hx HTN - BP 122/69, HR 80 - Cont. HOLD home Lisinopril 20 mg PO Daily - Cont. HOLD home Furosemide 20 mg 1-2 tablets PO PRN LE edema Hx Current Smoker - Patient advised on smoking cessation - Nicotine patch 14 mg Topical Daily DVT Prophylaxis - BLE Duplex on 09/16/21 negative for DVTs - Cont. Heparin 5000 units SC Q8H Disposition - PT/OT evaluated and recommended acute rehabilitation; - Discharge team following - Patient medically ready for discharge - GF updated Time spent on the assessment of patient, gathering and interpreting data, review of medical record/patient history, personally reviewing radiographic imaging and formulation of this note 60 minutes of which 50% of time was at bedside educating and counseling patient's family as to diagnosis, plan of care. Electronic Signatures: Concetta Shi (ASSISTANT PROGRAM MANAGER-[employer]OOM [employer]) (Signed 25-Sep-2021 13:30) Authored: Clinical Event Note Last Updated: 25-Sep-2021 13:30 by Concetta Shi (ASSISTANT PROGRAM MANAGER-BROOM MAN) [facility] Daily Progress Note-Neurosjudy stearns 09-25-2021 Daily Progress Note-Neurosurgery Service: Neurosurgery Subjective Data: MORALES LEE is a 46 year old Female who is Hospital Day # 11 and POD #4 for posterior L4-L5 decompression;posterior L4-L5 arthrodesis. Objective Data: Objective Information: T PRBPSpO2 [id number]/6799% Date/Time09/24 16: 16: 16: 16:00 Range (68 - 78 ) (18 - 19 ) (102 - 117 )/ (57 - 73 ) (95% - 99% ) As of 24-Sep-2021 21:40:00, patient is on 2 L/min of oxygen via nasal cannula. Pain reported at 09/24 21:40: 8 = Severe ---- Intake and Output ----- Mn/Dy/Year TimeIntakeOutputNet Sep 23, 2021 10:00 [id number] Sep 23, 2021 6:00 [id number] The Intake and Output Totals for the last 24 hours are: IntakeOutputNet [id number] Physical Exam by System: Neurological: A&Ox3 RUE D5, B5, T5, HG5, IO5 LUE D4+, B4+, T4+, HG4+, IO5 RLE HF 3, KE4-, PF1, DF1 LLE HF 4-, KE4-, PF1, DF0 Recent Lab Results: Results: RFP: 09/24/2021 06:20 NA+ Cl- BUN / 143 108 H 5 L / ----- Glucose 92 K+ HCO3- Creat \ 3.9 29 0.39 L \ Calcium : 7.7 LAnion Gap : 10 Albumin : 2.6 L Phos : 3.3 Assessment and Plan: Code Status: Code StatusFull Code Assessment: Pt is a 46 yo F w/ h/o HTN, C6-7 ACDFF, T1 comp fx s/p T11-12 lami c/b worseing kyphosis s/p 12/2020 L1 transpedic decompression/SPOs/T5-L4 fusion, b/l ulnar neuorpathies p/w thoracic kyphosis. 09/16 BLE DVT US negative 09/18 s/p extension of instrumentation to L5 to pelvis w/reduction of L4-5 dislocation, post op w/no dorsiflexion or toe wiggle, CT LS hardware in correct position 09/20 hypotensive w/ pt Hgb drop s/p 1u pRBC, incr to MRI TS/LS L4 stenosis 09/21 s/p L4/5 lami, accessory kwame placement Plan: tele Drain/Prevena AFO Chronic pain recs COWS psych recs alvares for retention SCDs, SQH PTOT-rehab Attestation: Note Completion: I am a: Resident/Fellow Attending AttestationI saw and evaluated the patient. I personally obtained the schofield and critical portions of the history and physical exam or was physically present for schofield and critical portions performed by the resident/fellow. I reviewed the resident/fellows documentation and discussed the patient with the resident/fellow. I agree with the resident/fellows medical decision making as documented in the note. I personally evaluated the patient [id number] Electronic Signatures: Lex Frederick) (Signed 25-Sep-2021 11:57) Authored: Note Completion Co-Signer: Service, Subjective Data, Objective Data, Assessment and Plan, Note Completion Alfredo Hendrickson (Resident)) (Signed 25-Sep-2021 05:56) Authored: Service, Subjective Data, Objective Data, Assessment and Plan, Note Completion Last Updated: 25-Sep-2021 11:57 by Lex Frederick) [facility] Nnvt-oo-iphcpfenx - co -tx /c OT to address multidiscipon 09-25-2021 Rehab Jbdq-cc-yuywilafj - co-tx /c OT to address multidiscip Rehab: Info: Disciplinephysical physical therapy supervisor Mode of Treatmentphysical therapy; co-treatment; co-tx /c OT to address multidisciplinary functional needs and maximize pt's safety. Time IN15:05 Time OUT15:59 Total Treatment [id number] Patient in ... at end of sessionbed, 3 railings up; alarm off; not on at start of visit Communicated with ... at end of sessionbedside nurse Patient Effortexcellent Patient Response to TreatmentPt is very motivated and wanted to try to get to a chair today. She was able to get to standing /c therapy the other day. Today, pt felt she was more swollen particularly in her hands and her abdomen. She became tearful at the end of the session 2* inability to get to full standing after numerous attempts this date. Pt needed increased positive reinforcement this date, but was very appreciative of effort. Line and TubesIV; telemetry; Purewick catheter Mobility/Tone: Bed Mobility Assessment/Interventionssup ine to sit; sit to supine; scooting/bridging; rolling right; rolling left Roll Left [place] (Bed Mobility)maximum assist (25% patient effort); 2 person assist; verbal cues; nonverbal cues (demo/gesture) Roll Right [place] (Bed Mobility)maximum assist (25% patient effort); 2 person assist; verbal cues; nonverbal cues (demo/gesture) Scoot/Bridge [place] (Bed Mobility)maximum assist (25% patient effort); 2 person assist; nonverbal cues (demo/gesture); verbal cues Faelmw-hf-Wuz [place] (Bed Mobility)maximum assist (25% patient effort); 2 person assist; verbal cues; nonverbal cues (demo/gesture) Wna-ki-Wdwbpn [place] (Bed Mobility)maximum assist (25% patient effort); 2 person assist; nonverbal cues (demo/gesture); verbal cues Transfer Assessment/Interventionssit to stand transfer; stand to sit transfer Comment, Transfers3-4 attempts at standing. Each attempt, the pt was unable to get to full standing position and had little to 0 strength in (B)LEs to push down. On the final attempt, pt required 3 person assist but still was unable to get to full standing. Sit-Stand [place] (Transfers)maximum assist (25% patient effort); verbal cues; nonverbal cues (demo/gesture); 2-3 persona assist Sit-Stand Assistive Device (Transfers)walker, front-wheeled Stand-Sit [place] (Transfers)maximum assist (25% patient effort); nonverbal cues (demo/gesture); verbal cues; 2-3 persona assist Stand-Sit Assistive Device (Transfers)walker, front-wheeled Impairments Impacting Function (Mobility)strength; endurance/activity tolerance; coordination Sensory: Comment, Pre/Post Treatment PainPt notes pain in her buttocks and low back /c certain positions. No number given, but likely 10/10 TherEx: Therapeutic ExercisePt was able to maintain good sitting balance along EOB for ~30 minutes of the duration of therapy session today. She had good trunk stability and occasionally used (B)UEs on EOB to recenter to COG. Outcomes Tools: Turning from your back to your side while in a flat bed without using bedrails a lot Moving from lying on your back to sitting on the side of a flat bed without using bedrailsa lot Moving to and from bed to chair (including a wheelchair)total Standing up from a chair using your arms (e.g. wheelchair or bedside chair) total To walk in hospital roomtotal Climbing 3-5 steps with railingtotal AM-PAC (PT) Total Score8 Short Term Goals: Bed Mobility: Date [id number] Bed Mobility: [place] Level Goalminimum assist (75% patients effort) Bed Mobility: Physical Assist Level Goal1-person assist, verbal cues Bed Mobility: Time Frame for Goal2 wks Transfer: Established Transfer: Transfer Type Sonqbtq-tc-dlpzh/chair-to-b ed; mxp-kl-rbvqc/mvyfd-kx-kxu Transfer: [place] Level Goalmoderate assist (50% patients effort) Transfer: Physical Assist Level Goal1-person assist; verbal cues Transfer: Assistive Device Goalrolling walker Transfer: Time Frame for Goal2 wks Gait: Established Gait: [place] Level Goalmoderate assist (50% patients effort) Gait: Physical Assist Level1-person assist; verbal cues Gait: Assistive Device Goalrolling walker Gait: Distance Goal15 feet Gait: Time Frame for Goal2 wks Balance: Established Balance: Goal DetailsSitting EOB 20 minutes with 0-1 UE support, SBA for static sitting, CGA for dynamic. Standing 1 minute with FWW and CGA Outcome Summary: Progress: Physical Therapyprogress toward functional goals is gradual Electronic Signatures: Yosi Campbell (WEB DEVELOPMENT MANAGER) (Signed 25-Sep-2021 16:59) Entered: Outcome Summary, Short Term Goals, Sensory, TherEx, Outcomes Tools, Info, Mobility/Tone Authored: Short Term Goals, Outcome Summary, TherEx, Outcomes Tools, Info, Mobility/Tone, Sensory Boone Broussard (PT) (Signed 01-Oct-2021 09:01) Co-Signer: Outcome Summary, Short Term Goals, Sensory, TherEx (more content not included)... [facility] Rehab Note-occupational health nurse supervisor apy - Partial co-tx with PT to tue09-25-2021 Rehab Note-occupational therapy - Partial co-tx with PT to Rehab: Info: Disciplineoccupational therapist Mode of Treatmentoccupational therapy; Partial co-tx with PT to maximize pt's mobility and safety. Time IN15:03 Time OUT15:56 Total Treatment [id number] Patient in ... at end of sessionbed, 3 railings up; alarm on Communicated with ... at end of sessionbedside nurse Patient Effortadequate Symptoms Noted During/After Treatmentfatigue; increased pain Treatment Considerations/Commentsspin al precautions, log roll Patient Response to TreatmentPt supine upon approach and agreeable to OT. Pt cooperative and pleasant. Pt motivated this date attempt STS transfers to chair however unable to achieve. Line and TubesIV; telemetry; wound vac, DAVOL drain, external catheter Vision/Cognition: Affect/Mental Status (Cognitive)anxious Orientation Status (Cognition)oriented x 3 Cognitive Function (Cognitive)safety deficit; executive function deficit Executive Function Deficit (Cognition)moderate deficit; insight/awareness of deficits; self-monitoring/self-correc tion; problem solving/reasoning Safety Deficit (Cognitive)moderate deficit; decreased awareness; impaired insight into deficits; self-awareness impairment; need for assistance Cognitive Interventions (Cognitive)external compensatory strategy training; internal compensatory strategy training; environmental modifications; occupation/activity based interventions; process/task specific training; process modification; reasoning/problem solving interventions; sensory stimulation Able to Follow Commands (Receptive)follows multi-step commands; over 90% accuracy; verbal cues/prompting required; repetition of directions required; physical/tactile prompts required Mobility/Tone: Bed Mobility Assessment/Interventionsrol ling left; scooting/bridging; supine to sit; sit to supine; rolling right Roll Left [place] (Bed Mobility)Pt required assist to bend BLE at knees and to initiate turn at shoulders and hips, verbal cues for grasp on bed rail, technique, direction follow, and encouragement.; set up; verbal cues; maximum assist (25% patient effort); 2 person assist Roll Right [place] (Bed Mobility)Pt required assist to bend BLE at knees and to initiate turn at shoulders and hips, verbal cues for grasp on bed rail, technique, direction follow, and encouragement.; set up; verbal cues; maximum assist (25% patient effort); 2 person assist Scoot/Bridge [place] (Bed Mobility)boost HOB; set up; verbal cues; maximum assist (25% patient effort); 2 person assist Nrdwaq-gp-Szj [place] (Bed Mobility)HOB elevated; set up; verbal cues; maximum assist (25% patient effort); 2 person assist Yhp-zm-Tweafm [place] (Bed Mobility)HOB elevated; set up; verbal cues; maximum assist (25% patient effort); 2 person assist Assistive Device (Bed Mobility)bed rails; draw sheet Transfer Assessment/Interventionssit to stand transfer Sit-Stand [place] (Transfers)set up; verbal cues; maximum assist (25% patient effort); x 2-3 assist Safety Issues Impacting Function (Mobility)ability to follow commands; awareness of need for assistance; insight into deficits/self awareness; judgment; problem solving Impairments Impacting Function (Mobility)balance; cognition; endurance/activity tolerance; pain; strength; postural/trunk control ADL: BADL Assessment/Interventiontoil eting; feeding; grooming; lower body dressing; upper body dressing; bathing [place] Level (Bathing)set up; verbal cues; moderate assist (50% patient effort); 1 person assist Comment (Bathing)anticipated due to impaired balance, strength, and pain. [place] Level (Upper Body Dressing)set up; verbal cues; moderate assist (50% patient effort) Comment (Upper Body Dressing)anticipated due to impaired balance, strength, and pain. [place] Level (Lower Body Dressing)don; socks; dependent (less than 25% patient effort) Position (Lower Body Dressing)supine [place] Level (Grooming)set up; contact guard Comment (Grooming)anticipated due to impaired balance, strength, and pain. [place] Level (Feeding)set up; modified independence Comment (Feeding)anticipated [place] Level (Toileting)dependent (less than 25% patient effort); purewick Impairments, BADL Safety/Performancebalance; cognition; endurance/activity tolerance; strength; trunk/postural control Cognitive Impairments, BADL Safety/Performanceawareness , need for assistance; insight into deficits/self awareness; judgment; problem solving/reasoning Motor: Sitting, Static (Balance)good balance SBA Sitting, Dynamic (Balance)fair balance CGA Gca-ph-Tzfsh (Balance)poor balance Max A x 2-3 - attempted Standing, Static (Balance)unable to balance Standing, Dynamic (Balance)unable to balance Balance ActivitiesPt sat EOB ~30 minutes with SBA/CGA for safety. Pt demonstrated good sitting balance and trunk control. Pt attempted STS transfers 3x with (more content not included)... [facility] Daily Progress Note-Nuha stearns 09-24-2021 Daily Progress Note-Neurosurgery Service: Neurosurgery Subjective Data: MORALES LEE is a 46 year old Female who is Hospital Day # 10 and POD #3 for posterior L4-L5 decompression;posterior L4-L5 arthrodesis. Objective Data: Objective Information: T PRBPSpO2 [id number]/5499% Date/Time09/23 20:4809/23 20:4809/23 20:4809/23 20:4809/23 20:48 Range(35.5C - 36.1C ) (66 - 75 ) (16 - 19 ) (90 - 118 )/ (54 - 75 ) (98% - 99% ) As of 23-Sep-2021 22:43:00, patient is on 2 L/min of oxygen via nasal cannula. ---- Intake and Output ----- Mn/Dy/Year TimeIntakeOutputNet Sep 22, 2021 10:00 [id number] Sep 22, 2021 2:00 [id number] Sep 22, 2021 6:00 [id number] The Intake and Output Totals for the last 24 hours are: IntakeOutputNet [id number] Physical Exam by System: Neurological: A&Ox3 RUE D5, B5, T5, HG5, IO5 LUE D4+, B4+, T4+, HG4+, IO5 RLE HF 3, KE4-, PF1, DF0 LLE HF 4-, KE4-, PF1, DF0 Recent Lab Results: Results: CBC: 09/23/2021 12:45 \ Hgb / \ 10.4 L / WBC Plt 7.6 228 / Hct \ / 30.9 L \ RBC: 3.39 L MCV: 91 Neutrophil %: 57.2 RFP: 09/23/2021 05:13 NA+ Cl- BUN / 143 108 H 9 / ----- Glucose 87 K+ HCO3- Creat \ 3.6 29 0.39 L \ Calcium : 7.9 LAnion Gap : 10 Albumin : 2.7 L Phos : 2.7 Assessment and Plan: Code Status: Code StatusFull Code Assessment: Pt is a 46 yo F w/ h/o HTN, C6-7 ACDFF, T1 comp fx s/p T11- lami c/b worseing kyphosis s/p 12/2020 L1 transpedic decompression/SPOs/T5-L4 fusion, b/l ulnar neuorpathies p/w thoracic kyphosis. 09/16 BLE DVT US negative 09/18 s/p extension of instrumentation to L5 to pelvis w/reduction of L4-5 dislocation, post op w/no dorsiflexion or toe wiggle, CT LS hardware in correct position 09/20 hypotensive w/ pt Hgb drop s/p 1u pRBC, incr to MRI TS/LS L4 stenosis 09/21 s/p L4/5 lami, accessory kwame placement Plan: tele Drain/Prevena AFO script in chart; needs to talk to orthotics in AM Chronic pain recs- intra-op ketamine, meloxicam post-op, Suboxone as OP COWS psych recs alvares for retention SCD's, SQH PTOT- rehab Attestation: Note Completion: I am a: Resident/Fellow Attending AttestationI saw and evaluated the patient. I personally obtained the schofield and critical portions of the history and physical exam or was physically present for schofield and critical portions performed by the resident/fellow. I reviewed the resident/fellows documentation and discussed the patient with the resident/fellow. I agree with the resident/fellows medical decision making as documented in the note. I personally evaluated the patient [id number] Comments/ Additional Findings Doing well. Kyphotic posture and Back Pain from instability and traumatic chance fracture significantly improved as compared to preop. She developed weakness involving ankle PF/DF following yazidi of alignment from buckling of hypertrophic ligamentum flavum that required return to OR for L4/5 laminectomy and decompression but she still continues to weak in ankle PF/DF but reports improvement in sensation and have good strength elsewhere involving all muscle groups with 4 to 4+/5 strength in Hip F/E and Knee F/E. Discussed with her that she would likely need aggressive PT for her ankle weakness that may gradually improve with time considering that he stenosis was adequately decompressed and she has preserved sensation but would benefit from an AFO for ambulation and PT for now and watermaster if the weakness fails to improve over time. At this point she does not require any further surgical intervention. Regardless, she should be able to ambulate. She mentioned that she has not been able to stand upright despite an excellent correction of the previous thoracic kyphosis that she underwent last year in December with us due to likely significant bending at the hips and more so over the past several more so ever since she sustained distal L4 5 chance fracture with the instability. She essentially has been significantly limited in her activity of daily living and ambulation over the past several months and has been utilizing wheelchair often and ambulating minimally within her home using a cane and walker with a significantly bent forward posture and not being able to stand up straight whatsoever especially after the fall a few months back. She endorse that she has not been able to ambulate without assistance Of a a wheelchair or a walker and that too only for few steps whatsoever over the past several months especially after the fall or even more than a year. She did not followed up with me after the fall despite the fact that she was so symptomatic due to personal reasons. I reassured her that overall due to the improvement in the alignment and improvement in her excruciating back pain following the recent surgery, she should be ambulate to the (more content not included)... [facility] MAGNESIUMon 09-24-2021 Magnesium [Mass/Vol] 1.71 mg/dL Normal 1.60 - 2.40 [facility] Comment on above: Performed By: #### A FPA3 #### [facility] [id number] [place] [address] Magnesium, Serumon Magnesium [Mass/Vol] 1.71 mg/dL See Below [facility] astroen terology-[facility] 6 [facility] Work Phone: Comment on above: Reference Range: 1.6 0 - 2.40 RENAL FUNCTION PANELon 09-24 Albumin [Mass/Vol] 2.6 g/dL Low 3.4 - 5.0 [facility] Comment on above: Performed By: #### R ENAL ####[id number] [place] [address] Anion gap [Moles/Vol] 10 mmol/L Normal 10 - 20 [facility] Comment on above: Performed By: #### R ENAL ####[id number] [place] [address] Calcium [Mass/Vol] 7.7 mg/dL Low 8.6 - 10.6 [facility] Comment on above: Performed By: #### R ENAL ####[id number] [place] [address] Chloride [Moles/Vol] 108 mmol/L High 98 - 107 [facility] Comment on above: Performed By: #### R ENAL ####[id number] [place] [address] Creatinine [Mass/Vol] 0.39 mg/dL Low 0.50 - 1.05 [facility] Comment on above: Performed By: #### R ENAL ####[id number] [place] [address] eGFR FEMALE >90 Normal >90 [facility] Comment on above: Result Comment: CALC ULATIONS OF ESTIMATED GFR ARE PERFORMED USING THE 2020 CKD-EPI STUDY REFIT EQUATION WITHOUT THE RACE VARIABLE FOR THE IDMS-TRACEABLE CREATININE METHODS. https://jasn.asnjournals.org/content/early//ASN.1719382 988 Performed By: #### R ENAL ####[id number] [place] [address] Glucose [Mass/Vol] 92 mg/dL Normal 74 - 99 [facility] Comment on above: Performed By: #### R ENAL ####[id number] [place] [address] HCO3 (Bld) [Moles/Vol] 29 mmol/L Normal 21 - 32 [facility] Comment on above: Performed By: #### R ENAL ####[id number] [place] [address] Phosphate [Mass/Vol] 3.3 mg/dL Normal 2.5 - 4.9 [facility] Comment on above: Result Comment: The performance characteristics of phosphorus testing in heparinized plasma have been validated by the individual laboratory site where testing is performed. Testing on heparinized plasma is not approved by the FDA; however, such approval is not necessary. Performed By: #### R ENAL ####[id number] [place] [address] Potassium [Moles/Vol] 3.9 mmol/L Normal 3.5 - 5.3 [facility] Comment on above: Performed By: #### R ENAL ####[id number] [place] [address] Sodium [Moles/Vol] 143 mmol/L Normal 136 - 145 [facility] Comment on above: Performed By: #### R ENAL ####[id number] [place] [address] Urea nitrogen [Mass/Vol] 5 mg/dL Low 6 - 23 [facility] Comment on above: Performed By: #### R ENAL ####[id number] [place] [address] Rehab Note-attemptedon 09-24 Rehab Note-attempted Rehab: Info: Mode of Treatmentattempted Time IN15:00 Reason Treatment Not Performedpatient/family declined treatment; Pt declined participation in OT treatment stating she was on a very important call that she needed to take. Electronic Signatures: Silvana Marshall (OT) (Signed 24-Sep-2021 15:29) Authored: Info Last Updated: 24-Sep-2021 15:29 by Silvana Marshall (OT) [facility] Rehab Note-physical therapyo n 09-24-2021 Rehab Note-physical therapy Rehab: Info: Disciplinephysical therapist Mode of Treatmentattempted; physical therapy Time IN11:55 Reason Treatment Not Performedpatient/family declined treatment, not feeling well Patient Response to Treatment2 attempts. 11:55 Pt reporting not getting any rest and needing to sleep. Willing to have therapy try again later. 13:05 Pt reporting on important phone call and needs to stay on it. Electronic Signatures: Boone Broussard (PT) (Signed 24-Sep-2021 15:07) Authored: Info Last Updated: 24-Sep-2021 15:07 by Boone Broussard (PT) [facility] Renal Function Panelon 09-24 Albumin BCP dye [Mass/Vol] 2.6 g/dL below low threshold 3.4 - 5.0 [facility]astroen [facility]ology-[place] [facility] Work Phone: Anion gap [Moles/Vol] 10 mmol/L 10 - 20 [facility] [facility] Work Phone: Calcium [Mass/Vol] 7.7 mg/dL below low threshold 8.6 - 10.6 [facility] [facility] [facility] Work Phone: Chloride [Moles/Vol] 108 mmol/L above high threshold 98 - 107 [facility]-[place] [facility] [facility] Work Phone: CO2 [Moles/Vol] 29 mmol/L 21 - 32 [facility] en [facility]ology-[place] [facility] 6 I Work Phone: Creatinine [Mass/Vol] 0.39 mg/dL below low threshold See Below [facility]ology-[place] [facility] I Work Phone: Comment on above: Reference Range: 0.5 0 - 1.05 Glucose [Mass/Vol] 92 mg/dL 74 - 99 [facility]-Gas troen terology-[place] 6 I Work Phone: Phosphate [Mass/Vol] 3.3 mg/dL 2.5 - 4.9 [facility] astroen terology-[place] 6 I Work Phone: Comment on above: The performance arsalan acteristics of phosphorus testing in heparinized plasma have been validated by the individual laboratory site where testing is performed. Testing on heparinized plasma is not approved by the FDA; however, such approval is not necessary. Potassium [Moles/Vol] 3.9 mmol/L 3.5 - 5.3 [facility] [facility] [facility] Work Phone: Sodium [Moles/Vol] 143 mmol/L 136 - 145 [facility]ology-[place] [facility] [facility] I Work Phone: Urea nitrogen [Mass/Vol] 5 mg/dL below low threshold 6 - 23 [facility] [facility] [facility] I Work Phone: Renal Function Panel >90 >90 [facility] astroen terology-[place] [facility] [facility] I Work Phone: Comment on above: CALCULATIONS OF IVY MATED GFR ARE PERFORMED USING THE 2020 CKD-EPI STUDY REFIT EQUATION WITHOUT THE RACE VARIABLE FOR THE IDMS-TRACEABLE CREATININE METHODS.https://jasn.asnjournals.org/content//ASN .6667377577 CBCon 09-23-2021 Erythrocyte distribution width (RBC) [Ratio] 13.1 % Normal 11.5 - 14.5 [facility] Comment on above: Performed By: #### C BC ####[id number] [place] [address] Hematocrit (Bld) [Volume fraction] 30.5 % Low 36.0 - 46.0 [facility] Comment on above: Performed By: #### C BC ####[id number] [place] [address] Hemoglobin (Bld) [Mass/Vol] 9.9 g/dL Low 12.0 - 16.0 [facility] Center Comment on above: Performed By: #### C BC ####[id number] [place] [address] MCHC (RBC) [Mass/Vol] 32.5 g/dL Normal 32.0 - 36.0 [facility] Comment on above: Performed By: #### C BC ####[id number] [place] [address] MCV (RBC) [Entitic vol] 92 fL Normal 80 - 100 [facility] Comment on above: Performed By: #### C BC ####[id number] [place] [address] NUCLEATED RBC 0.0 /100 WBC Normal 0.0-0.0 [facility] Comment on above: Performed By: #### C BC ####[id number] [place] [address] Platelets (Bld) [#/Vol] 244 10*3/uL Normal 150 - 450 [facility] Comment on above: Performed By: #### C BC ####[id number] [place] [address] RBC 3.33 x10E12/L Low 4.00 - 5.20 [facility] Comment on above: Performed By: #### C BC ####[id number] [place] [address] WBC (Bld) [#/Vol] 8.6 10*3/uL Normal 4.4 - 11.3 [facility] Comment on above: Performed By: #### C BC ####[id number] [place] [address] CBC AND DIFFERENTIALon 09-23 % AUTOMATED IMMATURE GRAN 0.4 % Normal 0.0 - 0.9 [facility] Comment on above: Result Comment: Jaleesa ture Granulocyte Count (IG) includes promyelocytes, myelocytes and metamyelocytes but does not include bands. Percent differential counts (%) should be interpreted in the context of the absolute cell counts (cells/L). Performed By: #### C BC #### [facility] [id number] [place] [address] Basophils (Bld) [#/Vol] 0.03 10*3/uL Normal 0.00 - 0.10 [facility] Comment on above: Performed By: #### C BC #### [facility] [address] [place] [address] Basophils/100 WBC (Bld) 0.4 % Normal 0.0 - 2.0 [facility] Comment on above: Performed By: #### C BC #### [facility] [address] [place] [address] Eosinophils (Bld) [#/Vol] 0.27 10*3/uL Normal 0.00 - 0.70 [facility] Comment on above: Performed By: #### C BC #### [facility] [address] [place] [address] Eosinophils/100 WBC (Bld) 3.6 % Normal 0.0 - 6.0 [facility] Comment on above: Performed By: #### C BC #### [facility] [address] [place] [address] Erythrocyte distribution width (RBC) [Ratio] 13.2 % Normal 11.5 - 14.5 [facility] Comment on above: Performed By: #### C BC #### [facility] [address] [place] [address] Hematocrit (Bld) [Volume fraction] 30.9 % Low 36.0 - 46.0 [facility] Comment on above: Performed By: #### C BC #### [facility] [address] [place] [address] Hemoglobin (Bld) [Mass/Vol] 10.4 g/dL Low 12.0 - 16.0 [facility] Comment on above: Performed By: #### C BC #### [facility] [address] [place] [address] Lymphocytes (Bld) [#/Vol] 2.41 10*3/uL Normal 1.20 - 4.80 [facility] Comment on above: Performed By: #### C BC #### [facility] [address] [place] [address] Lymphocytes/100 WBC (Bld) 31.9 % Normal 13.0 - 44.0 [facility] Comment on above: Performed By: #### C BC #### [facility] [address] [place] [address] MCHC (RBC) [Mass/Vol] 33.7 g/dL Normal 32.0 - 36.0 [facility] Comment on above: Performed By: #### C BC #### [facility] [address] [place] [address] MCV (RBC) [Entitic vol] 91 fL Normal 80 - 100 [facility] Comment on above: Performed By: #### C BC #### [facility] [address] [place] [address] Monocytes (Bld) [#/Vol] 0.49 10*3/uL Normal 0.10 - 1.00 [facility] Comment on above: Performed By: #### C BC #### [facility] [address] [place] [address] Monocytes/100 WBC (Bld) 6.5 % Normal 2.0 - 10.0 [facility] Comment on above: Performed By: #### C BC #### [facility] [address] [place] [address] Neutrophils (Bld) [#/Vol] 4.32 10*3/uL Normal 1.20 - 7.70 [facility] Comment on above: Performed By: #### C BC #### [facility] [address] [place] [address] Neutrophils/100 WBC (Bld) 57.2 % Normal 40.0 - 80.0 [facility] Comment on above: Performed By: #### C BC #### [facility] [address] [place] [address] NUCLEATED RBC 0.0 /100 WBC Normal 0.0-0.0 [facility] Comment on above: Performed By: #### C BC #### [facility] [address] [place] [address] Platelets (Bld) [#/Vol] 228 10*3/uL Normal 150 - 450 [facility] Comment on above: Performed By: #### C BC #### [facility] [address] [place] [address] RBC 3.39 x10E12/L Low 4.00 - 5.20 [facility] Comment on above: Performed By: #### C BC #### [facility] [address] [place] [address] WBC (Bld) [#/Vol] 7.6 10*3/uL Normal 4.4 - 11.3 [facility] Comment on above: Performed By: #### C BC #### [facility] [address] [place] [address] Complete Blood Count + Diffe rentialon 01-19-2022 Basophils/100 WBC (Bld) 0.4 % 0.0 - 2.0 [facility] Work Phone: Erythrocyte distribution width (RBC) [Ratio] 13.2 % See Below [facility] Work Phone: Comment on above: Reference Range: 11. 5 - 14.5 Hematocrit (Bld) [Volume fraction] 30.9 % below low threshold See Below [facility] Work Phone: Comment on above: Reference Range: 36. 0 - 46.0 Hemoglobin (Bld) [Mass/Vol] 10.4 g/dL below low threshold See Below [facility] Work Phone: Comment on above: Reference Range: 12. 0 - 16.0 Lymphocytes/100 WBC (Bld) 31.9 % See Below [facility] Work Phone: Comment on above: Reference Range: 13. 0 - 44.0 MCHC (RBC) [Mass/Vol] 33.7 g/dL See Below [facility] Work Phone: Comment on above: Reference Range: 32. 0 - 36.0 MCV (RBC) [Entitic vol] 91 fL 80 - 100 [facility] Work Phone: Monocytes/100 WBC (Bld) 6.5 % 2.0 - 10.0 [facility] Work Phone: Neutrophils/100 WBC (Bld) 57.2 % See Below [facility] Work Phone: Comment on above: Reference Range: 40. 0 - 80.0 Platelets (Bld) [#/Vol] 228 10*3/uL 150 - 450 [facility] Work Phone: RBC (Bld) [#/Vol] 3.39 {x10E12/L} below low threshold See Below [facility] Work Phone: Comment on above: Reference Range: 4.0 0 - 5.20 WBC (Bld) [#/Vol] 7.6 10*3/uL 4.4 - 11.3 [facility] Work Phone: Complete Blood Count + Differential 0.03 {x10E9/L} See Below [facility] Work Phone: Comment on above: Reference Range: 0.0 0 - 0.10 Complete Blood Count + Differential 0.27 {x10E9/L} See Below [facility] Work Phone: Comment on above: Reference Range: 0.0 0 - 0.70 Complete Blood Count + Differential 0.49 {x10E9/L} See Below [facility] Work Phone: Comment on above: Reference Range: 0.1 0 - 1.00 Complete Blood Count + Differential 2.41 {x10E9/L} See Below [facility] Work Phone: Comment on above: Reference Range: 1.2 0 - 4.80 Complete Blood Count + Differential 4.32 {x10E9/L} See Below [facility] Work Phone: Comment on above: Reference Range: 1.2 0 - 7.70 Complete Blood Count + Differential 3.6 % 0.0 - 6.0 [facility] Work Phone: Complete Blood Count + Differential 0.4 % 0.0 - 0.9 [facility] Work Phone: Comment on above: Immature Granulocyte Count (IG) includes promyelocytes, myelocytes and metamyelocytes but does not include bands. Percent differential counts (%) should be interpreted in the context of the absolute cell counts (cells/L). Complete Blood Count + Differential 0.0 {/100_WBC} 0.0-0.0 [facility] Work Phone: Laboratory - Hematology and Cell countson 09-23-2021 Erythrocyte distribution width (RBC) [Ratio] 13.1 % See Below [facility] Work Phone: Comment on above: Reference Range: 11. 5 - 14.5 Hematocrit (Bld) [Volume fraction] 30.5 % below low threshold See Below [facility] Work Phone: Comment on above: Reference Range: 36. 0 - 46.0 Hemoglobin (Bld) [Mass/Vol] 9.9 g/dL below low threshold See Below [facility] Work Phone: Comment on above: Reference Range: 12. 0 - 16.0 MCHC (RBC) [Mass/Vol] 32.5 g/dL See Below [facility] Work Phone: Comment on above: Reference Range: 32. 0 - 36.0 MCV (RBC) [Entitic vol] 92 fL 80 - 100 [facility] Work Phone: Platelets (Bld) [#/Vol] 244 10*3/uL 150 - 450 [facility] Work Phone: RBC (Bld) [#/Vol] 3.33 {x10E12/L} below low threshold See Below [facility] Work Phone: Comment on above: Reference Range: 4.0 0 - 5.20 WBC (Bld) [#/Vol] 8.6 10*3/uL 4.4 - 11.3 [facility] Work Phone: MAGNESIUMon 09-23-2021 Magnesium [Mass/Vol] 1.68 mg/dL Normal 1.60 - 2.40 [facility] Comment on above: Performed By: #### C BC #### [facility] [address] [place] [address] Magnesium, Serumon Magnesium [Mass/Vol] 1.68 mg/dL See Below [facility] Work Phone: Comment on above: Reference Range: 1.6 0 - 2.40 No Panel Informationon 09-23 0.0 {/100_WBC} 0.0-0.0 [facility] Work Phone: Order Reconciliationon 09-23 Order Reconciliation Page 1 Discharge Reconciliation Document Reconciliation Type: Discharge requested on behalf of Ambrocio Izaguirre (Advanced Practice Nurse) done by Ambrocio Izaguirre ([facility]) Discharge - Partial Reconciliation: 23-Sep-2021 13:21 by: Ambrocio Izaguirre ([facility]) Discharge - Partial Reconciliation: 24-Sep-2021 10:12 by: Ambrocio Izaguirre ([facility]) Discharge - Partial Reconciliation: 30-Sep-2021 14:12 by: Concetta Shi ([facility]) Discharge - Partial Reconciliation: 30-Sep-2021 14:14 by: Concetta Shi ([facility]) Discharge - Reconciliation: 30-Sep-2021 14:24 by: Concetta Shi ([facility]) Discharge - Reset to Incomplete: 02-Oct-2021 15:36 by: Ambrocio Izaguirre ([facility]) Discharge - Reconciliation: 02-Oct-2021 15:40 by: Ambrocio Izaguirre ([facility]) Discharge - Reset to Incomplete: 02-Oct-2021 15:57 by: Ambrocio Izaguirre ([facility]) Discharge - Reconciliation: 02-Oct-2021 15:58 by: Ambrocio Izaguirre ([facility]) Home Medications EnteredHOME MEDICATIONS AT DISCHARGE DateReconciliation Comment/ Additional Information acetaminophen 325 mg oral tablet 2 tab(s) orally every 6 hours, as needed while having post operative pain 01-Jan-2021 11:35 acetaminophen 325 mg oral tablet 2 tab(s) orally every 6 hours, as needed while having post operative pain 01-Jan-2021 11:35 acetaminophen 325 mg oral tablet is continued as acetaminophen 325 mg oral tablet Ambien CR 12.5 mg oral tablet, extended release 1 tab(s) oral prn 12-Dec-2020 09:55 Ambien CR 12.5 mg oral tablet, extended release 1 tab(s) orally once a day (at bedtime), As Needed Discontinued; Copy/Discontinue Ambien CR 12.5 mg oral tablet, extended release is continued and modified Ankle Foot Orthosis for foot drop 23-Sep-2021 19:36 Discontinued; Discontinue from ORM Ankle Foot Orthosis is not required calcium-vitamin D 500 mg-200 intl units (5 mcg) oral tablet 1 tab(s) orally 4 times a day 01-Jan-2021 11:58 Discontinued; Discontinue from ORM calcium-vitamin D 500 mg-200 intl units (5 mcg) oral tablet is not required cyclobenzaprine 10 mg oral tablet 1 tab(s) oral 3 times a day, as needed for muscle spasms 01-Jan-2021 11:58 Discontinued; Discontinue from ORM cyclobenzaprine 10 mg oral tablet is not required cyclobenzaprine 10 mg oral tablet 1 tab(s) orally 3 times a day, As Needed 30-Sep-2021 14:19 EnteredInError diclofenac topical 1% topical gel 1 milena topical prn 12-Dec-2020 09:55 Discontinued; Discontinue from ORM diclofenac topical 1% topical gel is not required DULoxetine 30 mg oral delayed release capsule 1 cap(s) orally once a day 30-Sep-2021 14:19 DULoxetine 30 mg oral delayed release capsule 1 cap(s) orally once a day 30-Sep-2021 14:19 DULoxetine 30 mg oral delayed release capsule is continued as DULoxetine 30 mg oral delayed release capsule furosemide 20 mg oral tablet 2 tab(s) orally once a day, As Needed 15-Sep-2021 21:43 furosemide 20 mg oral tablet 2 tab(s) orally once a day, As Needed 15-Sep-2021 21:43 furosemide 20 mg oral tablet is continued as furosemide 20 mg oral tablet gabapentin 800 mg oral tablet 1 tab(s) oral 3 times a day 12-Dec-2020 09:55 gabapentin 800 mg oral tablet 1 tab(s) oral 3 times a day, -For post operative pain, - 30 days supply, - ICD 10: G89.19 02-Oct-2021 15:57 Discontinued; Copy/Discontinue Prescription is created for gabapentin 800 mg oral tablet lisinopril 20 mg oral tablet 1 tab(s) oral once a day 12-Dec-2020 09:55 lisinopril 20 mg oral tablet 1 tab(s) oral once a day 12-Dec-2020 09:55 lisinopril 20 mg oral tablet is continued as lisinopril 20 mg oral tablet MiraLax oral powder for reconstitution 1 orally once a day 15-Sep-2021 21:50 Discontinued; Discontinue from ORM MiraLax oral powder for reconstitution is not required nicotine 14 mg/24 hr transdermal film, extended release 1 patch transdermally once a day 01-Jan-2021 11:58 Discontinued; Discontinue from ORM nicotine 14 mg/24 hr transdermal film, extended release is not required Suboxone 8 mg-2 mg sublingual tablet 1 tab(s) sublingual , -Please discuss with prescriber about when to restart/transition back to this medication 01-Jan-2021 11:43 Suboxone 8 mg-2 mg sublingual tablet 1 tab(s) sublingual 2 times a day Discontinued; Copy/Discontinue Suboxone 8 mg-2 mg sublingual tablet is continued and modified Valium 5 mg oral tablet 1 tab(s) orally every 8 hours, As Needed 15-Sep-2021 21:46 Valium 5 mg oral tablet 1 tab(s) orally every 8 hours, As Needed 15-Sep-2021 21:46 Valium 5 mg oral tablet is continued as Valium 5 mg oral tablet Current OrdersDateHOME MEDICATIONS AT DISCHARGE DateReconciliation Comment/ Additional Information Acetaminophen Tablet (TYLENOL)DOSE = 650 mg Oral Every 6 Hours 21-Sep-2021 15:40 Acetaminophen is not required Benzocaine 20% Mucous Membrane Gel (ANBESOL, ORAJEL)DOSE = 1 application(s) Mucous Membrane 3 Times a Day 29-Sep-2021 10:56 Benzocaine 20% Mucous Membrane Gel is not required (more content not included)... Normal [facility] PATH REVIEW-IMMUNOHEMATOLOGY on 09-23-2021 PATH REV-IMMUNOHEMOTOL PETARNohemi Normal [facility] Comment on above: Result Comment: By h er/his signature above, the Pathologist listed as making the final interpretation certifies that she/he has personally reviewed this case. ANTIBODY DETECTION SCREEN IS POSITIVE. ANTIBODY IDENTIFICATION PANEL WAS PERFORMED. THE AUTOCONTROL IS NEGATIVE. ANTI-E(BIG E)IS IDENTIFIED. THE PATIENT'S RBC PHENOTYPE IS E(BIG E)-ANTIGEN NEGATIVE. THESE FINDINGS ARE CONSISTENT WITH A NEWLY IDENTIFIED ALLOANTIBODY ANTI-E. ALL OTHER COMMON CLINICALLY SIGNIFICANT ALLOANTIBODIES HAVE BEEN RULED OUT. FULL CROSSMATCHED E-ANTIGEN NEGATIVE DONOR RBC UNITS SHOULD BE SELECTED FOR TRANSFUSION FOR THIS PATIENT. Performed By: #### A FPA3 #### [facility] [address] [place] [address] RENAL FUNCTION PANELon 09-23 Albumin [Mass/Vol] 2.7 g/dL Low 3.4 - 5.0 [facility] Comment on above: Performed By: #### V FPA3 #### [facility] [address] [place] [address] Anion gap [Moles/Vol] 10 mmol/L Normal 10 - 20 [facility] Comment on above: Performed By: #### V FPA3 #### [facility] [address] [place] [address] Calcium [Mass/Vol] 7.9 mg/dL Low 8.6 - 10.6 [facility] Comment on above: Performed By: #### V FPA3 #### [facility] [address] [place] [address] Chloride [Moles/Vol] 108 mmol/L High 98 - 107 [facility] Comment on above: Performed By: #### V FPA3 #### [facility] [address] [place] [address] Creatinine [Mass/Vol] 0.39 mg/dL Low 0.50 - 1.05 [facility] Comment on above: Performed By: #### V FPA3 #### [facility] [address] [place] [address] eGFR FEMALE >90 Normal >90 [facility] Comment on above: Result Comment: CALC ULATIONS OF ESTIMATED GFR ARE PERFORMED USING THE 2020 CKD-EPI STUDY REFIT EQUATION WITHOUT THE RACE VARIABLE FOR THE IDMS-TRACEABLE CREATININE METHODS. https://jasn.asnjournals.org/content/early//ASN.7664726 988 Performed By: #### V FPA3 #### [place] [address] [place] [address] Glucose [Mass/Vol] 87 mg/dL Normal 74 - 99 [facility] Comment on above: Performed By: #### V FPA3 #### [facility] [address] [place] [address] HCO3 (Bld) [Moles/Vol] 29 mmol/L Normal 21 - 32 [facility] Comment on above: Performed By: #### V FPA3 #### [place] [address] [place] [address] Phosphate [Mass/Vol] 2.7 mg/dL Normal 2.5 - 4.9 [facility] Comment on above: Result Comment: The performance characteristics of phosphorus testing in heparinized plasma have been validated by the individual laboratory site where testing is performed. Testing on heparinized plasma is not approved by the FDA; however, such approval is not necessary. Performed By: #### V FPA3 #### [facility] [address] [place] [address] Potassium [Moles/Vol] 3.6 mmol/L Normal 3.5 - 5.3 [facility] Comment on above: Performed By: #### V FPA3 #### [facility] [address] [place] [address] Sodium [Moles/Vol] 143 mmol/L Normal 136 - 145 [facility] Comment on above: Performed By: #### V FPA3 #### [facility] [address] [place] [address] Urea nitrogen [Mass/Vol] 9 mg/dL Normal 6 - 23 [facility] Comment on above: Performed By: #### V FPA3 #### [facility] [address] [place] [address] Rehab Note-individual therap yon 09-23-2021 Rehab Note-individual therapy Rehab: Info: Disciplinephysical therapist Mode of Treatmentphysical therapy; individual therapy Time IN14:50 Time OUT15:29 Total Treatment [id number] Patient in ... at end of sessionbed, 3 railings up; alarm on Communicated with ... at end of sessionbedside nurse Patient Effortgood Symptoms Noted During/After Treatmentfatigue; increased pain Patient Response to TreatmentSupine. Pt labile and talking to RN about conversation with MD. Pt however, pleasant, cooperative, agreeable to PT. Able to progress today to full standing. Pt reporting burning sensation when LEs touched, but otherwise tolerated transfers and therapeutic activity well without fatigue, SOB nor dizziness. Line and TubesIV; triple lumen; telemetry; urethral catheter indwelling; DAVOL drain, wound vac O2 Deliverynasal cannula; 4L Vision/Cognition: Affect/Mental Status (Cognitive)sad/depressed affect Orientation Status (Cognition)oriented x 3 Able to Follow Commands (Receptive)follows multi-step commands; over 90% accuracy; verbal cues/prompting required Mobility/Tone: Bed Mobility Assessment/Interventionsrol ling left; scooting/bridging; supine to sit; sit to supine; rolling right Roll Left [place] (Bed Mobility)verbal cues; maximum assist (25% patient effort); 1 person assist Roll Right [place] (Bed Mobility)maximum assist (25% patient effort); verbal cues; 1 person assist Scoot/Bridge [place] (Bed Mobility)verbal cues; maximum assist (25% patient effort); 2 person assist; boost HOB Yukraq-ib-Hqc [place] (Bed Mobility)verbal cues; maximum assist (25% patient effort); 1 person assist Czq-pk-Oqroei [place] (Bed Mobility)set up; verbal cues; maximum assist (25% patient effort); 1 person assist Assistive Device (Bed Mobility)bed rails; draw sheet Transfer Assessment/Interventionssit to stand transfer; stand to sit transfer Sit-Stand [place] (Transfers)2 person assist; moderate assist (50% patient effort) Sit-Stand Assistive Device (Transfers)B arm-in-arm assist Stand-Sit [place] (Transfers)2 person assist; moderate assist (50% patient effort) Stand-Sit Assistive Device (Transfers)B arm-in-arm assist Impairments Impacting Function (Mobility)balance; cognition; endurance/activity tolerance; pain; strength; postural/trunk control; motor control Motor: Balance ActivitiesSitting EOB 15 minutes. Pt CGA for static sitting with 1 UE support, able to progress to SBA with 0 UE support for static sitting. Sensory: Pre-Treatment Pain Rating6/10 Post-Treatment Pain Rating6/10 Comment, Pre/Post Treatment PainBack. Pt appeared to still tolerate mobility well. RN aware and pt is on scheduled pain meds Health: Plan of Care Reviewed Withpatient TherEx: Therapeutic ExerciseSupine: AP, HS x10 AAROM, SAQ x10 Ind. Sitting EOB: LAQ x5 Outcomes Tools: Turning from your back to your side while in a flat bed without using bedrails a lot Moving from lying on your back to sitting on the side of a flat bed without using bedrailsa lot Moving to and from bed to chair (including a wheelchair)total Standing up from a chair using your arms (e.g. wheelchair or bedside chair)a lot To walk in hospital roomtotal Climbing 3-5 steps with railingtotal AM-PAC (PT) Total Score9 Education: Learnerpatient Barriers to Learningacuteness of illness barrier Methodverbal Outcome Evaluation1=partially meets; needs review Topicrehab plan of care; precautions; discharge recommendations including destination and/or equipment; fall prevention; positioning to decrease pain; activity modification to decrease pain Electronic Signatures: Boone Broussard (PT) (Signed 23-Sep-2021 15:50) Authored: Info, Vision/Cognition, Mobility/Tone, Motor, Sensory, Health, TherEx, Outcomes Tools, Education Last Updated: 23-Sep-2021 15:50 by Boone Broussard (PT) Normal [facility] Renal Function Panelon 09-23 Albumin BCP dye [Mass/Vol] 2.7 g/dL below low threshold 3.4 - 5.0 [facility] Work Phone: Anion gap [Moles/Vol] 10 mmol/L 10 - 20 [facility] Work Phone: Calcium [Mass/Vol] 7.9 mg/dL below low threshold 8.6 - 10.6 [facility] Work Phone: Chloride [Moles/Vol] 108 mmol/L above high threshold 98 - 107 [facility] Work Phone: CO2 [Moles/Vol] 29 mmol/L 21 - 32 [facility] Work Phone: Creatinine [Mass/Vol] 0.39 mg/dL below low threshold See Below [facility] Work Phone: Comment on above: Reference Range: 0.5 0 - 1.05 Glucose [Mass/Vol] 87 mg/dL 74 - 99 [facility] Work Phone: Phosphate [Mass/Vol] 2.7 mg/dL 2.5 - 4.9 [facility] Work Phone: Comment on above: The performance arsalan acteristics of phosphorus testing in heparinized plasma have been validated by the individual laboratory site where testing is performed. Testing on heparinized plasma is not approved by the FDA; however, such approval is not necessary. Potassium [Moles/Vol] 3.6 mmol/L 3.5 - 5.3 [facility] Work Phone: Sodium [Moles/Vol] 143 mmol/L 136 - 145 [facility] [facility] Work Phone: Urea nitrogen [Mass/Vol] 9 mg/dL 6 - 23 [facility] Work Phone: Renal Function Panel >90 >90 [facility] Work Phone: Comment on above: CALCULATIONS OF IVY MATED GFR ARE PERFORMED USING THE 2020 CKD-EPI STUDY REFIT EQUATION WITHOUT THE RACE VARIABLE FOR THE IDMS-TRACEABLE CREATININE METHODS.https://jasn.asnjournals.org/content/early//ASN .7053413461 ANTIBODY IDENT.on 09-22-2021 ANTIBODY IDENT. Anti-E Normal [facility] Comment on above: Performed By: #### V FPA3 #### [facility] [id number] [place] [address] CBCon 09-22-2021 Erythrocyte distribution width (RBC) [Ratio] 13.2 % Normal 11.5 - 14.5 [facility] Comment on above: Performed By: #### V FPA3 #### [facility] [address] [place] [address] Hematocrit (Bld) [Volume fraction] 30.6 % Low 36.0 - 46.0 [facility] Comment on above: Performed By: #### V FPA3 #### [facility] [id number] [place] [address] Hemoglobin (Bld) [Mass/Vol] 10.2 g/dL Low 12.0 - 16.0 [facility] Comment on above: Performed By: #### V FPA3 #### [facility] [address] [place] [address] MCHC (RBC) [Mass/Vol] 33.3 g/dL Normal 32.0 - 36.0 [facility] Comment on above: Performed By: #### V FPA3 #### [facility] [address] [place] [address] MCV (RBC) [Entitic vol] 91 fL Normal 80 - 100 [facility] Comment on above: Performed By: #### V FPA3 #### [facility] [address] [place] [address] NUCLEATED RBC 0.0 /100 WBC Normal 0.0-0.0 [facility] Comment on above: Performed By: #### V FPA3 #### [facility] [address] [place] [address] Platelets (Bld) [#/Vol] 215 10*3/uL Normal 150 - 450 [facility] Comment on above: Performed By: #### V FPA3 #### [facility] [address] [place] [address] RBC 3.37 x10E12/L Low 4.00 - 5.20 [facility] Comment on above: Performed By: #### V FPA3 #### [facility] [address] [place] [address] WBC (Bld) [#/Vol] 9.6 10*3/uL Normal 4.4 - 11.3 [facility] Comment on above: Performed By: #### V FPA3 #### [facility] [address] [place] [address] CBC AND DIFFERENTIALon 09-22 % AUTOMATED IMMATURE GRAN 0.4 % Normal 0.0 - 0.9 [facility] Comment on above: Result Comment: Jaleesa ture Granulocyte Count (IG) includes promyelocytes, myelocytes and metamyelocytes but does not include bands. Percent differential counts (%) should be interpreted in the context of the absolute cell counts (cells/L). Performed By: #### C BCDF ####[id number] [place] [address] Basophils (Bld) [#/Vol] 0.02 10*3/uL Normal 0.00 - 0.10 [facility] Comment on above: Performed By: #### C BCDF ####[id number] [place] [address] Basophils/100 WBC (Bld) 0.2 % Normal 0.0 - 2.0 [facility] Comment on above: Performed By: #### C BCDF ####[id number] [place] [address] Eosinophils (Bld) [#/Vol] 0.04 10*3/uL Normal 0.00 - 0.70 [facility] Comment on above: Performed By: #### C BCDF ####[id number] [place] [address] Eosinophils/100 WBC (Bld) 0.4 % Normal 0.0 - 6.0 [facility] Comment on above: Performed By: #### C BCDF ####[id number] [place] [address] Erythrocyte distribution width (RBC) [Ratio] 13.2 % Normal 11.5 - 14.5 [facility] Comment on above: Performed By: #### C BCDF ####[id number] [place] [address] Hematocrit (Bld) [Volume fraction] 30.6 % Low 36.0 - 46.0 [facility] Comment on above: Performed By: #### C BCDF ####[id number] [place] [address] Hemoglobin (Bld) [Mass/Vol] 10.3 g/dL Low 12.0 - 16.0 [facility] Comment on above: Performed By: #### C BCDF ####[id number] [place] [address] Lymphocytes (Bld) [#/Vol] 2.19 10*3/uL Normal 1.20 - 4.80 [facility] Comment on above: Performed By: #### C BCDF ####[id number] [place] [address] Lymphocytes/100 WBC (Bld) 19.9 % Normal 13.0 - 44.0 [facility] Comment on above: Performed By: #### C BCDF ####[id number] [place] [address] MCHC (RBC) [Mass/Vol] 33.7 g/dL Normal 32.0 - 36.0 [facility] Comment on above: Performed By: #### C BCDF ####[id number] [place] [address] MCV (RBC) [Entitic vol] 90 fL Normal 80 - 100 [facility] Comment on above: Performed By: #### C BCDF ####[id number] [place] [address] Monocytes (Bld) [#/Vol] 0.71 10*3/uL Normal 0.10 - 1.00 [facility] Comment on above: Performed By: #### C BCDF ####[id number] [place] [address] Monocytes/100 WBC (Bld) 6.5 % Normal 2.0 - 10.0 [facility] Comment on above: Performed By: #### C BCDF ####[id number] [place] [address] Neutrophils (Bld) [#/Vol] 7.98 10*3/uL High 1.20 - 7.70 [facility] Comment on above: Performed By: #### C BCDF ####[id number] [place] [address] Neutrophils/100 WBC (Bld) 72.6 % Normal 40.0 - 80.0 [facility] Comment on above: Performed By: #### C BCDF ####[id number] [place] [address] NUCLEATED RBC 0.0 /100 WBC Normal 0.0-0.0 [facility] Comment on above: Performed By: #### C BCDF ####[id number] [place] [address] Platelets (Bld) [#/Vol] 242 10*3/uL Normal 150 - 450 [facility] Comment on above: Performed By: #### C BCDF ####[id number] [place] [address] RBC 3.39 x10E12/L Low 4.00 - 5.20 [facility] Comment on above: Performed By: #### C BCDF ####[id number] [place] [address] WBC (Bld) [#/Vol] 11.0 10*3/uL Normal 4.4 - 11.3 [facility] Comment on above: Performed By: #### C BCDF ####[id number] [place] [address] Complete Blood Count + Diffe vidya 09-22-2021 Basophils/100 WBC (Bld) 0.2 % 0.0 - 2.0 [facility] Work Phone: Erythrocyte distribution width (RBC) [Ratio] 13.2 % See Below [facility] Work Phone: Comment on above: Reference Range: 11. 5 - 14.5 Hematocrit (Bld) [Volume fraction] 30.6 % below low threshold See Below [facility] Work Phone: Comment on above: Reference Range: 36. 0 - 46.0 Hemoglobin (Bld) [Mass/Vol] 10.3 g/dL below low threshold See Below [facility] Work Phone: Comment on above: Reference Range: 12. 0 - 16.0 Lymphocytes/100 WBC (Bld) 19.9 % See Below [facility] Work Phone: Comment on above: Reference Range: 13. 0 - 44.0 MCHC (RBC) [Mass/Vol] 33.7 g/dL See Below [facility] Work Phone: Comment on above: Reference Range: 32. 0 - 36.0 MCV (RBC) [Entitic vol] 90 fL 80 - 100 [facility] Work Phone: Monocytes/100 WBC (Bld) 6.5 % 2.0 - 10.0 [facility] Work Phone: Neutrophils/100 WBC (Bld) 72.6 % See Below [facility] Work Phone: Comment on above: Reference Range: 40. 0 - 80.0 Platelets (Bld) [#/Vol] 242 10*3/uL 150 - 450 [facility] Work Phone: RBC (Bld) [#/Vol] 3.39 {x10E12/L} below low threshold See Below [facility] Work Phone: Comment on above: Reference Range: 4.0 0 - 5.20 WBC (Bld) [#/Vol] 11.0 10*3/uL 4.4 - 11.3 [facility] Work Phone: Complete Blood Count + Differential 0.4 % 0.0 - 0.9 [facility] Work Phone: Comment on above: Immature Granulocyte Count (IG) includes promyelocytes, myelocytes and metamyelocytes but does not include bands. Percent differential counts (%) should be interpreted in the context of the absolute cell counts (cells/L). Complete Blood Count + Differential 0.0 {/100_WBC} 0.0-0.0 [facility] Work Phone: Complete Blood Count + Differential 0.02 {x10E9/L} See Below [facility] Work Phone: Comment on above: Reference Range: 0.0 0 - 0.10 Complete Blood Count + Differential 0.04 {x10E9/L} See Below [facility] Work Phone: Comment on above: Reference Range: 0.0 0 - 0.70 Complete Blood Count + Differential 0.71 {x10E9/L} See Below [facility] Work Phone: Comment on above: Reference Range: 0.1 0 - 1.00 Complete Blood Count + Differential 2.19 {x10E9/L} See Below [facility] Work Phone: Comment on above: Reference Range: 1.2 0 - 4.80 Complete Blood Count + Differential 7.98 {x10E9/L} above high threshold See Below [facility] Work Phone: Comment on above: Reference Range: 1.2 0 - 7.70 Cult, Urineon 09-22-2021 Bacteria identified Cx Nom (U) [facility] Work Phone: Daily Progress Note - Psychi atryon 09-22-2021 Daily Progress Note - Psychiatry Subjective Data: MORALES LEE is a 46 year old Female who is Hospital Day # 8. Pt seen lying in bed this morning, with at bedside. She is currently on CORRESPONDENT for pain, and reports being tired this morning following her surgery and being on the sedating medications. Report her mood is okay today, helped by her being here with her, though reports anxiety over the weekend regarding her procedures. Feels her medications are doing a good job of controlling her pain, and reports no issues with restarting Cymbalta after our last visit. States she is hoping to go to an inpatient rehab on discharge, as she felt home rehab did not sufficiently help after her surgery last year. Reports no other acute psychiatric concerns at this time. Objective: Objective Information: T PRBPSpO2 [id number]/5792% Date/Time09/22 0:001/ 8:001 8:001/18 8:001/18 8:00 Range(36.3C - 36.8C ) (63 - 83 ) (12 - 20 ) (69 - 93 )/ (41 - 58 ) (92% - 96% ) As of 21-Sep-2021 17:00:00, patient is on 4 L/min of oxygen via nasal cannula. Mental Status Exam: General: Awake, lying in bed, appropriately groomed and dressed in hospital gown. Appearance: Female, appears older than stated age. Attitude: Calm, somnolent. Behavior: Minimal eye contact, kept eyes closed for most of interview. Motor Activity: No psychomotor agitation or retardation noted. Does not appear restless. Gait not assessed. Speech: Quiet, but appropriate rate. Mood: Okay Affect: Mood congruent. Thought Process: Linear, organized, goal-directed. Thought Content: Does not endorse suicidal or homicidal ideation, no delusions elicited. Thought Perception: Does not endorse auditory or visual hallucinations, does not appear to be responding to hallucinatory stimuli. Cognition: Alert, oriented x3. No deficits noted. Adequate fund of knowledge. No deficit in recent and remote memory. No deficits in attention, concentration or language. Insight: Fair Judgment: Fair. Medications: Continuous Medications ----- 1. HYDROmorphone CORRESPONDENT 25 mg/ NaCL 0.9% 50 mL: 2.6 mg/hr IV CORRESPONDENT 2. Sodium Chloride 0.9% Infusion: 1000 mL IntraVenous Scheduled Medications ----- 1. Acetaminophen: 650 mg Oral Every 6 Hours 2. Calcium 500 mg - Vitamin D 200 Units: 1 tablet(s) Oral 4 Times a Day 3. ceFAZolin 2 gram/ D5W 100 mL Premix IVPB: 100 mL IntraVenous Piggyback Every 8 Hours 4. Docusate: 100 mg Oral 2 Times a Day 5. DULoxetine: 30 mg Oral Daily 6. Gabapentin: 800 mg Oral 3 Times a Day 7. Heparin SubCutaneous: 5000 unit(s) SubCutaneous Every 8 Hours 8. Lidocaine 5% TransDermal: 1 patch TransDermal Every 24 Hours 9. Nicotine 14 mg/ 24 hour TransDermal: 1 patch TransDermal Every 24 Hours 10. Nitrofurantoin Extended Release: 100 mg Oral Every 12 Hours 11. Sennosides: 2 tablet(s) Oral Daily 12. tiZANidine: 2 mg Oral Every 8 Hours 13. Zolpidem: 10 mg Oral At Bedtime PRN Medications ----- 1. Bisacodyl Rectal: 10 mg Rectal Daily 2. diazePAM (VALIUM): 5 mg Oral Every 8 Hours 3. Fleet Adult (Sodium Phosphate) Rectal: 1 enema Rectal Daily 4. Naloxone Injectable: 0.2 mg IntraVenous Push Once 5. Polyethylene Glycol: 17 gram(s) Oral Daily Currently Suspended Medications ----- 1. Lisinopril: 20 mg Oral Daily Recent Lab Results: Results: I have reviewed these laboratory results in Care: Complete Blood Count + Differential 22-Sep-2021 05:01:00 ResultValue White Blood Cell Count 11.0 Nucleated Erythrocyte Count 0.0 Red Blood Cell Count 3.39 L HGB 10.3 L HCT 30.6 L MCV 90 MCHC 33.7 PLT 242 RDW-CV 13.2 Neutrophil % 72.6 Immature Granulocytes % 0.4 Lymphocyte % 19.9 Monocyte % 6.5 Eosinophil % 0.4 Basophil % 0.2 Neutrophil Count 7.98 H Lymphocyte Count 2.19 Monocyte Count 0.71 Eosinophil Count 0.04 Basophil Count 0.02 Renal Function Panel 22-Sep-2021 05:01:00 ResultValue Glucose, Serum 93 NA 140 K 4.3 CL 105 Bicarbonate, Serum 29 Anion Gap, Serum 10 BUN 9 CREAT 0.49 L GFR Female >90 Calcium, Serum 7.8 L Phosphorus, Serum 2.4 L ALB 2.7 L Lactate, Level 22-Sep-2021 05:01:00 ResultValue Lactate, Level 0.8 . Assessment and Plan: Risk Assessment: Acute Risk of Harm to Self is Considered: low Acute Risk of Harm to Others is Considered: low Assessment: Patient is a 46 year old female with psychiatric history of depression, anxiety and opiate use disorder currently on suboxone (prescription) with medical hx HTN, C6-7 ACDF, T1 comp fracture s/p T11-12 lami c/b worsening kyphosis s/p 12/2020 L1 transpedic decompression/SPOs/T5-L4 fusion, b/l ulnar neuorpathies, chronic pain, thoracic kyphosis presents as direct admission for spinal surgery scheduled 09/18/21. Psychiatry consulted for concern for withdrawal from Suboxone (more content not included)... Normal [facility] Daily Progress Note-Nuha stearns 09-22-2021 Daily Progress Note-Neurosurgery Service: Neurosurgery Subjective Data: MORALES LEE Elena is a 46 year old Female who is Hospital Day # 8 and POD #1 for posterior L4-L5 decompression;posterior L4-L5 arthrodesis. Objective Data: Objective Information: T PRBPSpO2 [id number]/5895% Date/Time09/22 0:001 0:001 0:001 0:001 0:00 Range(36.2C - 36.8C ) (82 - 109 ) (12 - 20 ) (85 - 132 )/ (49 - 89 ) (94% - 100% ) As of 21-Sep-2021 17:00:00, patient is on 4 L/min of oxygen via nasal cannula. Pain reported at 09/21 16:33: 5 = Moderate ---- Intake and Output ----- Mn/Dy/Year TimeIntakeOutputNet Sep 20, 2021 10:00 [id number] Sep 20, 2021 6:00 [id number] The Intake and Output Totals for the last 24 hours are: IntakeOutputNet [id number] Physical Exam by System: Neurological: A&Ox3 RUE D5, B5, T5, HG5, IO5 LUE D4+, B4+, T4+, HG4+, IO5 RLE HF 3, KE4-, PF1, DF0 LLE HF 4-, KE4-, PF1, DF0 Recent Lab Results: Results: CBC: 09/21/2021 09:54 \ Hgb / \ 11.4 L / WBC Plt 14.6 H 269 / Hct \ / 34.5 L \ RBC: 3.81 L MCV: 91 Assessment and Plan: Code Status: Code StatusFull Code Assessment: Pt is a 46 yo F w/ h/o HTN, C6-7 ACDFF, T1 comp fx s/p T11-12 lami c/b worseing kyphosis s/p 12/2020 L1 transpedic decompression/SPOs/T5-L4 fusion, b/l ulnar neuorpathies p/w thoracic kyphosis. 09/16 BLE DVT US negative 09/18 s/p extension of instrumentation to L5 to pelvis w/reduction of L4-5 dislocation, post op w/no dorsiflexion or toe wiggle, CT LS hardware in correct position 09/20 hypotensive w/ pt Hgb drop s/p 1u pRBC, incr to MRI TS/LS L4 stenosis 09/21 s/p L4/5 lami, accessory kwame placement Plan: tele Chronic pain recs- intra-op ketamine, meloxicam post-op, CORRESPONDENT until good PT eval, Suboxone as OP COWS psych recs alvares for retention SCD's, SQH Attestation: Note Completion: I am a: Resident/Fellow Attending AttestationI saw and evaluated the patient. I personally obtained the schofield and critical portions of the history and physical exam or was physically present for schofield and critical portions performed by the resident/fellow. I reviewed the resident/fellows documentation and discussed the patient with the resident/fellow. I agree with the resident/fellows medical decision making as documented in the note. I personally evaluated the patient [id number] Electronic Signatures: Fidel Maciel (Resident)) (Signed 22-Sep-2021 00:35) Authored: Service, Subjective Data, Objective Data, Assessment and Plan, Note Completion Lex Frederick) (Signed 22-Sep-2021 10:31) Authored: Note Completion Co-Signer: Service, Subjective Data, Objective Data, Assessment and Plan, Note Completion Last Updated: 22-Sep-2021 10:31 by Lex Frederick) Normal [facility] Discharge [id number] 01-18-2 022 Discharge Profile2 Discharge Orders: Anticipated Discharge Date: Anticipated Discharge [id number] Problem List: Additional Dx: Spinal stenosis of lumbar region: Catalog Name: Spinal stenosis, lumbar region without neurogenic claudication Dislocation of lumbar facet joint: Catalog Name: Dislocation of unspecified lumbar vertebra, initial encounter Prelim Disch Dx: Thoracic kyphosis: Catalog Name: Unspecified kyphosis, thoracic region Significant Events: Surgical Procedure: Clinical Events This Visit, 21-Sep-2021, posterior L4-L5 decompression;posterior L4-L5 arthrodesis Surgical Procedure: Clinical Events This Visit, 18-Sep-2021, 1. Exploration of spinal fusion;2. Reduction of L4/5 dislocation;2. L5-pelvis instrumented fusion with posterolateral arthrodesis;4. Extension of instrumentation with multiple kwame construct and side connectors Hypertension (HTN): Past Medical History Hospital Providers: Provider RoleProvider Name Lex Min Vasu DNAR: Code Status at Discharge: Full Code Activity: activity as tolerated. May shower. May not drive. No pushing, pulling, or lifting objects greater than 10 pounds until follow-up visit. Weight-bearing Instructions: weight-bearing as tolerated. Diet: Dietregular Additional Orders: Additional Instructions -Do not take any over the counter or prescription NSAID medications for at least three months or until cleared by your Neurosurgeon. These medications include: Motrin, Ibuprofen, Advil, Aleve, Naproxen, Mobic etc.. This will allow for proper and adequate bone fusion. Please call your Neurosurgeon's office (Dr. Frederick [phone]) if you have any questions. -If you smoke or use products containing nicotine your are advised to stop. Nicotine may interfere with your bone fusion and hinder wound healing. - After discharge, please call your PCP to arrange staple removal. Removal of danya ok per Dr. Frederick after 10/07/2021 Neurosurgery: Patient Instructions: - Call 911 or go directly to the Emergency Room if you have ANY of the following symptoms: 1. Sudden weakness or numbness of the face, arm or leg, especially on one side of the body 2. Sudden difficulty speaking or understanding 3. Sudden trouble seeing in one or both eyes 4. Sudden trouble walking, dizziness, loss of balance or lack of coordination 5. Persistent one-sided headache 6. Loss of conscious or decreased conscious, fainting or seizures. - Always carry a current medication list with you and bring it to ALL healthcare Provider visits. - If you currently smoke or have smoked within the past 12 months, you are advised to stop smoking. Activity: Activity as tolerated. Slowly increase your activity level. You may feel fine but your body is still recovering and needs a balance of sleep and rest. It may take a month or two before you regain the energy you had before surgery. Pain or discomfort is a guide to cut back on your activity. No heavy lifting (more than 10 pounds), pulling or pushing activity until cleared by MD at follow-up appointment. You may shower immediately after discharge. DO NOT allow direct water spray on your incision. No tub soaking. DO NOT drive a car or RIDE a bicycle or motorcycle until cleared by MD at follow-up appointment. Driving or operating heavy machinery, lawnmowers or power tools while taking opiod/narcotic pain medications may impair your judgement. You may ride in a car with your seat belt on. May NOT return to school/work. Returning to work is judged on an individual basis. You may be off work from 2-8 weeks and this will be evaluated by the MD at the follow-up appointment.. Do NOT bend at waist or twist. Instead, bend at knees to grape picker objects. Wound Care: Inspect your incision daily for signs of infection: redness, swelling, drainage and foul discharge. Keep surgical incision open to air. DO NOT soak in a tub or swim until incision is completely healed. This may take approximately 4 weeks. DO NOT scrub or rub the incision. You may gently pat the incision. DO NOT pick off scabs, or old blood from the incision site. The incision should heal naturally on its own. No Lotions, creams, gels or powders. No hair products, conditioner, rubbing alcohol, hydrogen peroxide or ointments on or around your incision. There may be some tenderness, bruising and a small amount of swelling along the incision line. This will gradually go away over the next several weeks. Medication Instructions: If you were taking medications prior to your surgery and they are not listed on your discharge homegoing instructions medications list, consult your MD before you resume these medications. DO NOT resume taking blood thinning medications like Coumadin/Warfarin, Ibuprofen and Aspirin until cleared by your Neurosurgeon. Remember when taking Acetamin (more content not included)... Normal [facility] LACTATEon 09-22-2021 Lactate [Moles/Vol] 0.8 mmol/L Normal 0.4 - 2.0 [facility] Comment on above: Result Comment: Trina puncture immediately after or during the administration of Metamizole may lead to falsely low results. Testing should be performed immediately prior to Metamizole dosing. Performed By: #### C BC #### [facility] [id number] [place] [address] Laboratory - Hematology and Cell countson 09-22-2021 Erythrocyte distribution width (RBC) [Ratio] 13.2 % See Below [facility] Work Phone: Comment on above: Reference Range: 11. 5 - 14.5 Hematocrit (Bld) [Volume fraction] 30.6 % below low threshold See Below [facility] Work Phone: Comment on above: Reference Range: 36. 0 - 46.0 Hemoglobin (Bld) [Mass/Vol] 10.2 g/dL below low threshold See Below [facility] Work Phone: Comment on above: Reference Range: 12. 0 - 16.0 MCHC (RBC) [Mass/Vol] 33.3 g/dL See Below [facility] Work Phone: Comment on above: Reference Range: 32. 0 - 36.0 MCV (RBC) [Entitic vol] 91 fL 80 - 100 [facility] Work Phone: Platelets (Bld) [#/Vol] 215 10*3/uL 150 - 450 [facility] Work Phone: RBC (Bld) [#/Vol] 3.37 {x10E12/L} below low threshold See Below [facility] Work Phone: Comment on above: Reference Range: 4.0 0 - 5.20 WBC (Bld) [#/Vol] 9.6 10*3/uL 4.4 - 11.3 [facility] Work Phone: Lactate, Levelon 09-22-2021 Lactate [Moles/Vol] 0.8 mmol/L 0.4 - 2.0 [facility] Work Phone: Comment on above: Venipuncture immedia tely after or during the administration of Metamizole may lead to falsely low results. Testing should be performed immediately prior to Metamizole dosing. No Panel Informationon 09-22 0.0 {/100_WBC} 0.0-0.0 [facility] Work Phone: OT Evaluation v2-occupationa l therapy - co-eval with PT to mon 09-22-2021 OT Evaluation v2-occupational therapy - co-eval with PT to Rehab: Info: Mode of Treatmentoccupational therapy; co-eval with PT to maximize pt's mobility and safety. Time IN10:50 Time OUT11:40 Total Treatment [id number] Patient in ... at end of sessionbed, 3 railings up; alarm on Communicated with ... at end of sessionbedside nurse Patient Effortgood Symptoms Noted During/After Treatmentfatigue; increased pain Patient Profile Reviewedyes Onset of Illness/Injury or Date of [id number] Reason for Referral-09/18/21: s/p exploration of spinal fusion, reduction of L4/5 dislocation, L5-pelvis instrumented fusion with L4-pelvis posterolateral arthrodesis, extension of prior T6-L4 instrumentation with multiple kwame construct and side connectors. -09/21/21: s/p posterior L4-L5 decompression, posterior L4-L5 arthrodesis. Patient/Family/Caregiver Comments/ObservationsPt's spouse present throughout. Pt and spouse demonstrated some contention as spouse stated he wanted pt to attend skilled placement for rehab and pt wanted to be near spouse. General Observations of PatientPt supine upon approach and agreeable to OT with encouragement. Pt cooperative with depressed affect. Poor historian. Pt tolerated increased activity with bed mobility and EOB sitting. Pertinent History of Current Functional Caozsiw5 y/o with hx of HTN, C6-7 ACDF, T1 comp fracture s/p T11-12 lami c/b worsening kyphosis s/p 12/2020 L1 transpedic decompression/SPOs/T5-L4 fusion, b/l ulnar neuropathies, chronic pain, thoracic kyphosis. Hand Dominanceright Hearing Precautions/LimitationsWNL Precautions/Limitationsfall precautions; spinal precautions; log roll Developmental Statusindependent, age appropriate Ambulation Skills - Previous Level of FunctionPt reported utilizing walker at times. Per chart: pt IND at baseline. ADL Skills - Previous Level of Functionneeds assist; Pt reported she has decreased assist at home and goes several days without completing self-care tasks, stated she requires significant assist. Work/Leisure Activity - Previous Level of Functionneeds assist; Per chart: + drives occasionally, does not works, spouse is primary for IADLs. Living Arrangementshouse; ranch-style Lives Withspouse; Pt often babysits grandson. Home Accessibilitytub/shower is not walk in; first floor set up available Type of Equipment Currently In the Homerolling walker; shower chair Line and TubesIV; triple lumen; telemetry; urethral catheter indwelling; CORRESPONDENT pump, DAVOL drain, wound vac O2 Deliverynasal cannula; 4L Pre Treatment Patient Positionsupine Pre Treatment Blood Pressure Xcblyzjm75 mmHg Pre Treatment Diastolic (mm Hg)46 mmHg Pre Treatment Heart Rate (beats/min)67 Pre Treatment Respiratory Rate (breaths/min)19 Pre Treatment SpO2 (%)96 % Pre Treatment Oxygen Deliverysupplemental O2 Pre Treatment CommentsMAP 56 During Treatment Patient Positionsitting During Treatment Blood Pressure Qlhjkkyc09 mmHg During Treatment Diastolic (mm Hg)77 mmHg During Treatment Oxygen Deliverysupplemental O2 During Treatment CommentsMAP 84 Post Treatment Patient Positionsupine Post Treatment Blood Pressure SystolicImage has been removed. 72 Post Treatment Diastolic (mm Hg)36 mmHg Post Treatment Heart Rate (beats/min)104 Post Treatment Respiratory Rate (breaths/min)24 Post Treatment SpO2 (%)95 % Post Treatment Oxygen Deliverysupplemental O2 Post Treatment CommentsMAP 49 Vision/Cognition: Visual Impairment/LimitationsWFL Affect/Mental Status (Cognitive)sad/depressed affect Orientation Status (Cognition)oriented x 3 Cognitive Function (Cognitive)safety deficit; executive function deficit Executive Function Deficit (Cognition)moderate deficit; insight/awareness of deficits; self-monitoring/self-correc tion; problem solving/reasoning Safety Deficit (Cognitive)moderate deficit; decreased awareness; impaired insight into deficits; self-awareness impairment; need for assistance Cognitive Interventions (Cognitive)external compensatory strategy training; internal compensatory strategy training; environmental modifications; occupation/activity based interventions; process/task specific training; process modification; reasoning/problem solving interventions; sensory stimulation Able to Follow Commands (Receptive)follows multi-step commands; over 90% accuracy; verbal cues/prompting required; repetition of directions required; physical/tactile prompts required ROM: Upper Extremity: Range of Motionleft upper extremity ROM WFL; right upper extremity ROM WFL; stiffness noted at end range of shoulder flexion BUE. MMT: Upper Extremity: Manual Muscle Testing (MMT)BUE grossly >3/5 as observed through ROM screen and functional transfers/mobility. Mobility/Tone: Bed Mobility Assessment/Interventionsrol ling left; scooting/bridging; supine to sit; sit to supine Roll Left [place] (Bed Mobility)set up; verbal cues; 2 person assist; Pt required assist to bend BLE at (more content not included)... Normal [facility] PATH REVIEW-IMMUNOHEMATOLOGY on 09-22-2021 PATH REV-IMMUNOHEMOTOL ZURDO Normal [facility] Comment on above: Result Comment: By h er/his signature above, the Pathologist listed as making the final interpretation certifies that she/he has personally reviewed this case. ANTIBODY DETECTION SCREEN IS POSITIVE. ANTIBODY IDENTIFICATION PANEL WAS PERFORMED. THE AUTOCONTROL IS NEGATIVE. PREVIOUSLY IDENTIFIED ALLOANTIBODY ANTI-E (BIG E)IS REACTING. ALL OTHER COMMON CLINICALLY SIGNIFICANT ALLOANTIBODIES HAVE BEEN RULED OUT. FULL CROSSMATCHED E (BIG E)-ANTIGEN NEGATIVE DONOR RBC UNITS SHOULD BE SELECTED FOR TRANSFUSION FOR THIS PATIENT. Performed By: #### C #### [facility] [id number] [place] [address] PT Evaluation [id number] t - co-treatment with OT to maxion 09-22-2021 PT Evaluation [id number]-ma-elsqrbupf - co-treatment with OT to maxi Rehab: Info: Mode of Treatmentphysical therapy; co-treatment; co-treatment with OT to maximize safety, mobility and ADL participation Time IN10:50 Time OUT11:40 Total Treatment Hennzxt00 Patient in ... at end of sessionbed, 3 railings up; alarm on Communicated with ... at end of sessionbedside nurse Patient Effortgood Symptoms Noted During/After Treatmentfatigue; increased pain Patient Profile Reviewedyes Onset of Illness/Injury or Date of [id number] Reason for Referral-09/18/21: s/p exploration of spinal fusion, reduction of L4/5 dislocation, L5-pelvis instrumented fusion with L4-pelvis posterolateral arthrodesis, extension of prior T6-L4 instrumentation with multiple kwame construct and side connectors. -09/21/21: s/p posterior L4-L5 decompression, posterior L4-L5 arthrodesis. Patient/Family/Caregiver Comments/ObservationsDiscus sed low BPs with RN. Pt asymptomatic. RN ok with sitting pt EOB and closely monitoring BP and symptoms General Observations of PatientSupine. Flat affect and occasionally labile, but pleasant, cooperative, agreeable to PT. Able to sit EOB today and demonstrating good static sitting balance. Pertinent History of Current Functional ProblemHTN, C6-7 ACDF, T1 comp fracture s/p T11-12 lami c/b worsening kyphosis s/p 12/2020 L1 transpedic decompression/SPOs/T5-L4 fusion, b/l ulnar neuropathies, chronic pain, thoracic kyphosis. Precautions/Limitationsfall precautions; spinal precautions; log roll Ambulation Skills - Previous Level of Functionindependent needs device home ambulator Transfer Skills - Previous Level of Functionindependent; needs device ADL Skills - Previous Level of Functionneeds assist; Pt reports needing family assist secondary to pain Living Arrangementshouse; ranch-style Lives Withspouse Home Accessibilitytub/shower is not walk in; first floor set up available; 0 CIELO Type of Equipment Currently In the Homerolling walker; shower chair Line and TubesIV; triple lumen; telemetry; urethral catheter indwelling; CORRESPONDENT pump, DAVOL drain, wound vac O2 Deliverynasal cannula; 4L Pre Treatment Patient Positionsupine Pre Treatment Blood Pressure Nfpdarzo62 mmHg Pre Treatment Diastolic (mm Hg)46 mmHg Pre Treatment Heart Rate (beats/min)67 Pre Treatment SpO2 (%)96 % Pre Treatment Oxygen Deliverysupplemental O2 During Treatment Patient Positionsitting During Treatment Blood Pressure Nxvubtak86 mmHg During Treatment Diastolic (mm Hg)77 mmHg During Treatment Oxygen Deliverysupplemental O2 During Treatment CommentsPt denying dizziness Post Treatment Patient Positionsupine Post Treatment Blood Pressure SystolicImage has been removed. 72 Post Treatment Diastolic (mm Hg)36 mmHg Post Treatment Heart Rate (beats/min)104 Post Treatment Respiratory Rate (breaths/min)24 Post Treatment SpO2 (%)95 % Post Treatment Oxygen Deliverysupplemental O2 Vision/Cognition: Affect/Mental Status (Cognitive)sad/depressed affect Orientation Status (Cognition)oriented x 3 Able to Follow Commands (Receptive)follows multi-step commands; over 90% accuracy; verbal cues/prompting required; repetition of directions required; physical/tactile prompts required ROM: Lower Extremity: Range of Motionright lower extremity ROM WFL; left lower extremity ROM WFL MMT: Lower Extremity: Manual Muscle Testing (MMT)B hip 2/5, knee 3+/5, DF 1/5, PF 2/5 Mobility/Tone: Bed Mobility Assessment/Interventionsrol ling left; scooting/bridging; supine to sit; sit to supine; rolling right Roll Left [place] (Bed Mobility)verbal cues; 2 person assist; Pt required assist to bend BLE at knees and to initiate turn at shoulders and hips, verbal cues for grasp on bed rail, technique, direction follow, and encouragement.; maximum assist (25% patient effort) Roll Right [place] (Bed Mobility)2 person assist; maximum assist (25% patient effort); verbal cues Scoot/Bridge [place] (Bed Mobility)verbal cues; maximum assist (25% patient effort); 2 person assist; boost HOB Hprgwg-br-Ahn [place] (Bed Mobility)verbal cues; maximum assist (25% patient effort); 1 person assist Gkf-nr-Jpfind [place] (Bed Mobility)set up; verbal cues; maximum assist (25% patient effort); 1 person assist Assistive Device (Bed Mobility)bed rails; draw sheet Impairments Impacting Function (Mobility)balance; cognition; endurance/activity tolerance; pain; strength; postural/trunk control; motor control Motor: Sitting, Static (Balance)SBA Sitting, Dynamic (Balance)CGA Bqd-hu-Ffrcq (Balance)MADELIN this visit. Pt hypotensive Sensory: Pre-Treatment Pain Rating7/10 Post-Treatment Pain Rating7/10 Comment, Pre/Post Treatment PainPt reported pain throughout buttocks and back, utilized CORRESPONDENT pump as needed. Pain LimitationFunctional mobility limited due pain; ADLs/IADLs limited due to pain; Participation limited by pain; RN or team was notified of limitations due to p (more content not included)... Normal [facility] RENAL FUNCTION PANELon 09-22 Albumin [Mass/Vol] 2.7 g/dL Low 3.4 - 5.0 [facility] Comment on above: Performed By: #### C #### [facility] [address] [place] [address] Anion gap [Moles/Vol] 10 mmol/L Normal 10 - 20 [facility] Comment on above: Performed By: #### C BC #### [facility] [address] [place] [address] Calcium [Mass/Vol] 7.8 mg/dL Low 8.6 - 10.6 [facility] Comment on above: Performed By: #### C BC #### [facility] [address] [place] [address] Chloride [Moles/Vol] 105 mmol/L Normal 98 - 107 [facility] Comment on above: Performed By: #### C BC #### [facility] [address] [place] [address] Creatinine [Mass/Vol] 0.49 mg/dL Low 0.50 - 1.05 [facility] Comment on above: Performed By: #### C BC #### [facility] [address] [place] [address] eGFR FEMALE >90 Normal >90 [facility] Comment on above: Result Comment: CALC ULATIONS OF ESTIMATED GFR ARE PERFORMED USING THE 2020 CKD-EPI STUDY REFIT EQUATION WITHOUT THE RACE VARIABLE FOR THE IDMS-TRACEABLE CREATININE METHODS. https://jasn.asnjournals.org/content//ASN.1039578 988 Performed By: #### C BC #### [facility] [address] [place] [address] Glucose [Mass/Vol] 93 mg/dL Normal 74 - 99 [facility] Comment on above: Performed By: #### C BC #### [facility] [address] [place] [address] HCO3 (Bld) [Moles/Vol] 29 mmol/L Normal 21 - 32 [facility] Comment on above: Performed By: #### C BC #### [facility] [address] [place] [address] Phosphate [Mass/Vol] 2.4 mg/dL Low 2.5 - 4.9 [facility] Comment on above: Result Comment: The performance characteristics of phosphorus testing in heparinized plasma have been validated by the individual laboratory site where testing is performed. Testing on heparinized plasma is not approved by the FDA; however, such approval is not necessary. Performed By: #### C BC #### [facility] [address] [place] [address] Potassium [Moles/Vol] 4.3 mmol/L Normal 3.5 - 5.3 [facility] Comment on above: Performed By: #### C BC #### [facility] [address] [place] [address] Sodium [Moles/Vol] 140 mmol/L Normal 136 - 145 [facility] Comment on above: Performed By: #### C BC #### [facility] [address] [place] [address] Urea nitrogen [Mass/Vol] 9 mg/dL Normal 6 - 23 [facility] Comment on above: Performed By: #### C BC #### [facility] [address] [place] [address] Renal Function Panelon 09-22 Albumin BCP dye [Mass/Vol] 2.7 g/dL below low threshold 3.4 - 5.0 [facility] Work Phone: Anion gap [Moles/Vol] 10 mmol/L 10 - 20 [facility] Work Phone: Calcium [Mass/Vol] 7.8 mg/dL below low threshold 8.6 - 10.6 [facility] Work Phone: Chloride [Moles/Vol] 105 mmol/L 98 - 107 [facility] Work Phone: CO2 [Moles/Vol] 29 mmol/L 21 - 32 [facility] Work Phone: Creatinine [Mass/Vol] 0.49 mg/dL below low threshold See Below [facility] Work Phone: Comment on above: Reference Range: 0.5 0 - 1.05 Glucose [Mass/Vol] 93 mg/dL 74 - 99 [facility] Work Phone: Phosphate [Mass/Vol] 2.4 mg/dL below low threshold 2.5 - 4.9 [facility] Work Phone: Comment on above: The performance arsalan acteristics of phosphorus testing in heparinized plasma have been validated by the individual laboratory site where testing is performed. Testing on heparinized plasma is not approved by the FDA; however, such approval is not necessary. Potassium [Moles/Vol] 4.3 mmol/L 3.5 - 5.3 [facility] Work Phone: Sodium [Moles/Vol] 140 mmol/L 136 - 145 [facility] Work Phone: Urea nitrogen [Mass/Vol] 9 mg/dL 6 - 23 [facility] Work Phone: Renal Function Panel >90 >90 [facility] Work Phone: Comment on above: CALCULATIONS OF IVY MATED GFR ARE PERFORMED USING THE 2020 CKD-EPI STUDY REFIT EQUATION WITHOUT THE RACE VARIABLE FOR THE IDMS-TRACEABLE CREATININE METHODS.https://jasn.asnjournals.org/content/early//ASN .3513603943 UA MICROSCOPICon 09-22-2021 RBC 6 /HPF Abnormal 0-5 [facility] Comment on above: Performed By: #### C BC #### [facility] [address] [place] [address] SQUAMOUS EPITH. CELLS 1 /HPF Normal [facility] Comment on above: Performed By: #### C BC #### [facility] [address] [place] [address] WBC 8 /HPF Abnormal 0-5 [facility] Comment on above: Performed By: #### C BC #### [facility] [address] [place] [address] URINALYSIS WITH CULTURE IF I NDICATEDon 09-22-2021 Appearance (U) CLEAR Normal CLEAR [facility] Comment on above: Performed By: #### U ARFX ####[id number] [place] [address] Bilirubin Ql (U) Negative Normal NEGATIVE [facility] Comment on above: Performed By: #### U ARFX ####[id number] [place] [address] Color (U) SANDRA Normal STRAW,YELLO W [facility] Comment on above: Performed By: #### U ARFX ####[id number] [place] [address] Glucose Ql (U) Negative Normal NEGATIVE [facility] Comment on above: Performed By: #### U ARFX ####[id number] [place] [address] Hemoglobin Ql (U) Negative Normal NEGATIVE [facility] Comment on above: Performed By: #### U ARFX ####[id number] [place] [address] Ketones Ql (U) 20 (1+) Abnormal NEGATIVE [facility] Comment on above: Performed By: #### U ARFX ####[id number] [place] [address] Leukocyte esterase Test strip Ql (U) Negative Normal NEGATIVE [facility] Comment on above: Performed By: #### U ARFX ####[id number] [place] [address] Nitrite Ql (U) Negative Normal NEGATIVE [facility] Comment on above: Performed By: #### U ARFX ####[id number] [place] [address] pH (U) 5.0 [pH] Normal 5.0 - 8.0 [facility] Comment on above: Performed By: #### U ARFX ####[id number] [place] [address] Protein Ql (U) 30 (1+) Abnormal NEGATIVE [facility] Comment on above: Performed By: #### U ARFX ####[id number] [id number] Specific gravity (U) [Rel density] 1.040 High 1.005 - 1.035 [facility] Comment on above: Performed By: #### U ARFX ####[id number] [id number] Urobilinogen (U) [Mass/Vol] 2.0 mg/dL High 0.0 - 1.9 [facility] Comment on above: Result Comment: Due to a manufacturing issue, low positive urobilinogen results may be falsely positive. Correlate with urine bilirubin and additional clinical/laboratory findings to assess the risk of hemolytic anemia or liver disease. If clinically indicated, repeat testing with an alternate method is available by contacting the laboratory within 24 hours. . Some pigments and medications may cause a false positive urobilinogen. Performed By: #### U ARFX ####[id number] [id number] Lab Specimen Source Normal [facility] Comment on above: Performed By: #### U ARFX ####[id number] [id number] Performed By: #### C BC #### [facility] [address] [place] [id number] Color (U) SANDRA See Below [facility] Work Phone: Comment on above: SOURCE: Reference Ra nge: STRAW,YELLOW Glucose Ql (U) Negative NEGATIVE [facility] Work Phone: Ketones Ql (U) 20 (1+) Abnormal NEGATIVE [facility] Work Phone: Leukocyte esterase Test strip Ql (U) Negative NEGATIVE [facility] Work Phone: pH (U) 5.0 [pH] 5.0 - 8.0 [facility] Work Phone: Protein (U) [Mass/Vol] 30 (1+) Abnormal NEGATIVE [facility] Work Phone: RBC (U) [#/Vol] Negative NEGATIVE [facility] Work Phone: Specific gravity (U) [Rel density] 1.040 1 above high threshold See Below [facility] Work Phone: Comment on above: Reference Range: 1.0 05 - 1.035 URINALYSIS WITH CULTURE IF INDICATED 2.0 mg/dL above high threshold 0.0 - 1.9 [facility] Work Phone: Comment on above: Due to a manufacturi ng issue, low positive urobilinogen results may be falsely positive. Correlate with urine bilirubin and additional clinical/laboratory findings to assess the risk of hemolytic anemia or liver disease. If clinically indicated, repeat testing with an alternate method is available by contacting the laboratory within 24 hours..Some pigments and medications may cause a false positive urobilinogen. URINALYSIS WITH CULTURE IF INDICATED Negative NEGATIVE [facility] Work Phone: URINALYSIS WITH CULTURE IF INDICATED CLEAR CLEAR [facility] Work Phone: URINE CULTURE,BACTERIALon URINE CULTURE,BACTERIAL PATIENT: MORALES LEE LOCATION: [place] [id number] BILL#: [id number] : 71 AGE: SEX: F ORDERED BY: AMBROCIO IZAGUIRRE SOURCE: URINE COLLECTED: 09/22/21 12:59 ANTIBIOTICS AT [facility].: RECEIVED : 09/22/21 14:59 SITE: R E S U L T S URINE CULTURE,BACTERIAL FINAL 09/23/21 09:04 NO SIGNIFICANT GROWTH. Normal [facility] Comment on above: Performed By: #### C BC #### [facility] [address] [place] [address] Urinalysis, Microscopicon Urinalysis, Microscopic 1 {/HPF} [facility] Work Phone: Urinalysis, Microscopic 6 {/HPF} Abnormal 0-5 [facility] Work Phone: Urinalysis, Microscopic 8 {/HPF} Abnormal 0-5 [facility] Work Phone: Comment on above: SOURCE: CBCon 09-21-2021 Erythrocyte distribution width (RBC) [Ratio] 13.1 % Normal 11.5 - 14.5 [facility] Comment on above: Performed By: #### R ENAL #### [facility] [address] [place] [address] Hematocrit (Bld) [Volume fraction] 34.5 % Low 36.0 - 46.0 [facility] Comment on above: Performed By: #### R ENAL #### [facility] [address] [place] [address] Hemoglobin (Bld) [Mass/Vol] 11.4 g/dL Low 12.0 - 16.0 [facility] Comment on above: Performed By: #### R ENAL #### [facility] [address] [place] [address] MCHC (RBC) [Mass/Vol] 33.0 g/dL Normal 32.0 - 36.0 [facility] Comment on above: Performed By: #### R ENAL #### [facility] [address] [place] [address] MCV (RBC) [Entitic vol] 91 fL Normal 80 - 100 [facility] Comment on above: Performed By: #### R ENAL #### [facility] [address] [place] [address] NUCLEATED RBC 0.0 /100 WBC Normal 0.0-0.0 [facility] Comment on above: Performed By: #### R ENAL #### [facility] [address] [place] [address] Platelets (Bld) [#/Vol] 269 10*3/uL Normal 150 - 450 [facility] Comment on above: Performed By: #### R ENAL #### [facility] [address] [place] [address] RBC 3.81 x10E12/L Low 4.00 - 5.20 [facility] Comment on above: Performed By: #### R ENAL #### [facility] [address] [place] [address] WBC (Bld) [#/Vol] 14.6 10*3/uL High 4.4 - 11.3 [facility] Comment on above: Performed By: #### R ENAL #### [facility] [address] [place] [address] Erythrocyte distribution width (RBC) [Ratio] 13.2 % Normal 11.5 - 14.5 [facility] Comment on above: Performed By: #### R ENAL #### [facility] [address] [place] [address] Hematocrit (Bld) [Volume fraction] 35.8 % Low 36.0 - 46.0 [facility] Comment on above: Performed By: #### R ENAL #### [facility] [address] [place] [address] Hemoglobin (Bld) [Mass/Vol] 11.9 g/dL Low 12.0 - 16.0 [facility] Comment on above: Performed By: #### R ENAL #### [facility] [address] [place] [address] MCHC (RBC) [Mass/Vol] 33.2 g/dL Normal 32.0 - 36.0 [facility] Comment on above: Performed By: #### R ENAL #### [facility] [address] [place] [address] MCV (RBC) [Entitic vol] 91 fL Normal 80 - 100 [facility] Comment on above: Performed By: #### R ENAL #### [facility] [address] [place] [address] NUCLEATED RBC 0.0 /100 WBC Normal 0.0-0.0 [facility] Comment on above: Performed By: #### R ENAL #### [facility] [address] [place] [address] Platelets (Bld) [#/Vol] 215 10*3/uL Normal 150 - 450 [facility] Comment on above: Performed By: #### R ENAL #### [facility] [address] [place] [address] RBC 3.93 x10E12/L Low 4.00 - 5.20 [facility] Comment on above: Performed By: #### R ENAL #### [facility] [address] [place] [address] WBC (Bld) [#/Vol] 14.8 10*3/uL High 4.4 - 11.3 [facility] Comment on above: Performed By: #### R ENAL #### [facility] [address] [place] [address] Daily Progress Note-Nuha stearns 09-21-2021 Daily Progress Note-Neurosurgery Service: Neurosurgery Subjective Data: MORALES LEE is a 46 year old Female who is Hospital Day # 7 and POD #3 for 1. Exploration of spinal fusion;2. Reduction of L4/5 dislocation;2. L5-pelvis instrumented fusion with posterolateral arthrodesis;4. Extension of instrumentation with multiple kwame construct and side connectors. Objective Data: Objective Information: T PRBPSpO2 [id number]/8495% Date/Time09/20 15: 4: 4: 4: 4:00 Range(36.9C - 37.2C ) (82 - 109 ) (12 - 14 ) (80 - 132 )/ (51 - 84 ) (92% - 97% ) As of 20-Sep-2021 09:31:00, patient is on 2 L/min of oxygen via nasal cannula. Highest temp of 37.2 C was recorded at 09/20 15:00 Pain reported at 09/20 23:26: sleeping ---- Intake and Output ----- [facility] Sep 19, 2021 10:00 [id number] Sep 19, 2021 6:00 [id number] The Intake and Output Totals for the last 24 hours are: [facility] [id number] Physical Exam by System: Neurological: A&Ox3 RUE D5, B5, T5, HG5, IO5 LUE D4+, B4+, T4+, HG4+, IO5 RLE HF 3, KE4-, PF0, DF0 LLE HF 4-, KE4-, PF0, DF0 Recent Lab Results: Results: CBC: 09/21/2021 01:39 \ Hgb / \ 11.9 L / WBC Plt 14.8 H 215 / Hct \ / 35.8 L \ RBC: 3.93 L MCV: 91 Assessment and Plan: Code Status: Code StatusFull Code Assessment: Pt is a 46 yo F w/ h/o HTN, C6-7 ACDFF, T1 comp fx s/p T11-12 lami c/b worseing kyphosis s/p 12/2020 L1 transpedic decompression/SPOs/T5-L4 fusion, b/l ulnar neuorpathies p/w thoracic kyphosis. 09/16 BLE DVT US negative 09/18 s/p extension of instrumentation to L5 to pelvis w/reduction of L4-5 dislocation, post op w/no dorsiflexion or toe wiggle, CT LS hardware in correct position 09/20 hypotensive w/ pt Hgb drop s/p 1u pRBC, incr to MRI TS/LS L4 stenosis Plan: tele NPO after midnight OR today for L4-5 laminectomy Chronic pain recs- intra-op ketamine, meloxicam post-op, CORRESPONDENT until good PT eval, Suboxone as OP COWS psych recs alvares for retention SCD's, SQH Attestation: Note Completion: I am a: Resident/Fellow Attending AttestationI saw and evaluated the patient. I personally obtained the schofield and critical portions of the history and physical exam or was physically present for schofield and critical portions performed by the resident/fellow. I reviewed the resident/fellows documentation and discussed the patient with the resident/fellow. I agree with the resident/fellows medical decision making as documented in their note with the exception/addition of the following: I personally evaluated the patient [id number] Comments/ Additional Findings The patient has been having extreme difficulty obtaining an MRI and considering distal weakness that she developed with no obvious abnormality of the CT scan both before and after surgery and MRI under anesthesia had to be performed that was just completed this past midnight because of various hemodynamic issues the patient had throughout the day. I reviewed the MRI of the thoracolumbar spine that was done last midnight that showed presence of moderate to severe stenosis at L4-5 level secondary to inward buckling of the ligamentum flavum/chronic fibrosed tissue from the focal severe lumbar kyphosis that she had from facet dislocation. Her motor strength in the lower extremity seems to be about 4- to 4/5 bilaterally hip and knee extension with minimal flickering involving ankle plantarflexion and dorsiflexion and even though her proximal motor strength has improved over the past 2 days along with the distal sensation, she continues to be weak distally and in view of the presence of significant lumbar stenosis now secondary to inborn buckling of the ligamentum flavum from yazidi of for significant kyphotic malalignment spine I believe you she would benefit from lumbar decompression. There is no stenosis elsewhere of the lumbar spine and in the annulus of the thoracic spine that could be visualized though the evaluation of the thoracic spine was significantly limited secondary to artifact from the metallic implants. She may eventually require a CT myelogram for assessment of her spinal canal if you develop any signs or symptoms of thoracic myelopathy that at this point of time she does not seems to have any. 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 However I clearly mentioned to the patient that I cannot guarantee that her lower extremity strength would improve after surgery and she understands that and agreed to proceed with surgery. I mentioned that at this point of time we would only perform the L4-5 laminectomy without removing (more content not included)... Normal [facility] Laboratory - Blood bankon ABO group Nom (Bld) O [facility] [facility] Work Phone: Blood group antibody investigation (P/RBC) [Interp] Anti-E [facility] Work Phone: Blood group antibody screen Ql Positive [facility] Work Phone: Rh immune globulin screen (Bld) [Interp] Positive [facility] Work Phone: ABO group Nom (Bld) Canceled [facility] Work Phone: Comment on above: CALLED EVARISTO SPEARS, 09/21/2021 05:08 Blood group antibody screen Ql Canceled [facility] Work Phone: Comment on above: CALLED EVARISTO SPEARS, 09/21/2021 05:08 Rh immune globulin screen (Bld) [Interp] Canceled [facility] Work Phone: Comment on above: CALLED EVARISTO SPEARS, 09/21/2021 05:08 Laboratory - Hematology and Cell countson 09-21-2021 Erythrocyte distribution width (RBC) [Ratio] 13.1 % See Below [facility] Work Phone: Comment on above: Reference Range: 11. 5 - 14.5 Hematocrit (Bld) [Volume fraction] 34.5 % below low threshold See Below [facility] Work Phone: Comment on above: Reference Range: 36. 0 - 46.0 Hemoglobin (Bld) [Mass/Vol] 11.4 g/dL below low threshold See Below [facility] Work Phone: Comment on above: Reference Range: 12. 0 - 16.0 MCHC (RBC) [Mass/Vol] 33.0 g/dL See Below [facility] Work Phone: Comment on above: Reference Range: 32. 0 - 36.0 MCV (RBC) [Entitic vol] 91 fL 80 - 100 [facility] Work Phone: Platelets (Bld) [#/Vol] 269 10*3/uL 150 - 450 [facility] Work Phone: RBC (Bld) [#/Vol] 3.81 {x10E12/L} below low threshold See Below [facility] Work Phone: Comment on above: Reference Range: 4.0 0 - 5.20 WBC (Bld) [#/Vol] 14.6 10*3/uL above high threshold 4.4 - 11.3 [facility] Work Phone: Erythrocyte distribution width (RBC) [Ratio] 13.2 % See Below [facility] [facility] Work Phone: Comment on above: Reference Range: 11. 5 - 14.5 Hematocrit (Bld) [Volume fraction] 35.8 % below low threshold See Below [facility] Work Phone: Comment on above: Reference Range: 36. 0 - 46.0 Hemoglobin (Bld) [Mass/Vol] 11.9 g/dL below low threshold See Below [facility] [facility] Work Phone: Comment on above: Reference Range: 12. 0 - 16.0 MCHC (RBC) [Mass/Vol] 33.2 g/dL See Below [facility] [facility] Work Phone: Comment on above: Reference Range: 32. 0 - 36.0 MCV (RBC) [Entitic vol] 91 fL 80 - 100 [facility] Work Phone: Platelets (Bld) [#/Vol] 215 10*3/uL 150 - 450 [facility] [facility] Work Phone: RBC (Bld) [#/Vol] 3.93 {x10E12/L} below low threshold See Below [facility] Work Phone: Comment on above: Reference Range: 4.0 0 - 5.20 WBC (Bld) [#/Vol] 14.8 10*3/uL above high threshold 4.4 - 11.3 [facility] Work Phone: NR MRI L-SPINE WOon 09-21-19 22 NR MRI L-SPINE WO Patient Name: MORALES LEE STUDY: MRI T-SPINE WO; MRI L-SPINE WO; 09/20/2021 10:40 pm; 09/20/2021 10:42 pm INDICATION: postop foot weakness, Lie Flat: Yes, Pre Med: No . COMPARISON: MRI December 24, [address] of the lumbar spine September 18, 2021 ACCESSION NUMBER(S): [id number]; [id number] ORDERING CLINICIAN: DEVANTE STARKS TECHNIQUE: Sagittal axial T2 weighted images of the thoracic and lumbar spine were obtained. FINDINGS: There is marked artifact associated with the orthopedic hardware and the images are essentially nondiagnostic. Compared with December 11, 2020, there has been interval improvement of the alignment of the thoracolumbar spine. There is extensive artifact from orthopedic hardware extending from T5 through the sacrum. Evaluation of the cord and spinal canal is essentially nondiagnostic throughout the majority of the thoracic and lumbar spine. There is subtle disc bulging at T3-4. There is degenerative facet arthropathy and ligamentum flavum hypertrophy at L4-5 and L5-S1. There is also likely diffuse disc bulging or broad-based protrusion at L4-5 contributing to narrowing of the lateral recesses and marked mass effect on the thecal sac with severe central canal stenosis and crowding of nerve roots of the cauda equina. There are multi focal areas of consolidative change in the visualized aspects of the lungs. There is extensive soft tissue edema and fluid throughout the posterior paraspinous soft tissues of the thoracic and lumbar spine. Signal abnormalities IMPRESSION: Markedly limited evaluation of the thoracic and lumbar spine due to extensive artifact from orthopedic hardware extending from T5 through the sacrum. There does appear to be severe central canal stenosis at L4-5 due to facet and ligamentum flavum hypertrophy and probable disc protrusion. Please note S1 appears to be partially lumbarized and there is a diminutive disc space at S1-2. Electronically signed by: NATALIA WALL, DO Normal [facility] NR MRI T-SPINE WOon 09-21-19 NR MRI T-SPINE WO Patient Name: MORALES LEE STUDY: MRI T-SPINE WO; MRI L-SPINE WO; 09/20/2021 10:40 pm; 09/20/2021 10:42 pm INDICATION: postop foot weakness, Lie Flat: Yes, Pre Med: No . COMPARISON: MRI December 24, [address] of the lumbar spine September 18, 2021 ACCESSION NUMBER(S): [id number]; [id number] ORDERING CLINICIAN: DEVANTE STARKS TECHNIQUE: Sagittal axial T2 weighted images of the thoracic and lumbar spine were obtained. FINDINGS: There is marked artifact associated with the orthopedic hardware and the images are essentially nondiagnostic. Compared with December 11, 2020, there has been interval improvement of the alignment of the thoracolumbar spine. There is extensive artifact from orthopedic hardware extending from T5 through the sacrum. Evaluation of the cord and spinal canal is essentially nondiagnostic throughout the majority of the thoracic and lumbar spine. There is subtle disc bulging at T3-4. There is degenerative facet arthropathy and ligamentum flavum hypertrophy at L4-5 and L5-S1. There is also likely diffuse disc bulging or broad-based protrusion at L4-5 contributing to narrowing of the lateral recesses and marked mass effect on the thecal sac with severe central canal stenosis and crowding of nerve roots of the cauda equina. There are multi focal areas of consolidative change in the visualized aspects of the lungs. There is extensive soft tissue edema and fluid throughout the posterior paraspinous soft tissues of the thoracic and lumbar spine. Signal abnormalities IMPRESSION: Markedly limited evaluation of the thoracic and lumbar spine due to extensive artifact from orthopedic hardware extending from T5 through the sacrum. There does appear to be severe central canal stenosis at L4-5 due to facet and ligamentum flavum hypertrophy and probable disc protrusion. Please note S1 appears to be partially lumbarized and there is a diminutive disc space at S1-2. Electronically signed by: NATALIA WALL, Normal [facility] No Panel Informationon 09-21 0.0 {/100_WBC} 0.0-0.0 [facility] Work Phone: ORDER RECD [facility] Work Phone: 0.0 {/100_WBC} 0.0-0.0 [facility] Work Phone: Please click on the link to view the study images Normal [facility] Work Phone: Path Review Immunohematology on 09-21-2021 Path Review Immunohematology ZURDO [facility] Work Phone: Comment on above: By her/his signature above, the Pathologist listed as making the final interpretation certifies that she/he has personally reviewed this case. ANTIBODY DETECTION SCREEN IS POSITIVE.ANTIBODY IDENTIFICATION PANEL WAS PERFORMED.THE AUTOCONTROL IS NEGATIVE.PREVIOUSLY IDENTIFIED ALLOANTIBODYANTI-E (BIG E)IS REACTING.ALL OTHER COMMON CLINICALLY SIGNIFICANTALLOANTIBODIES HAVE BEEN RULED OUT.FULL CROSSMATCHED E (BIG E)-ANTIGEN NEGATIVE DONOR RBC UNITSSHOULD BE SELECTED FOR TRANSFUSION FOR THIS PATIENT. Preop Checkliston 09-21-2021 Preop Checklist Preop Checklist: Preop Checklist: Arrival [id number] Arrival Time11:00 Procedure Typere-exploration of spine Temperature C36.2 degrees C Temperature F97.1 degrees F Heart Rate91 beats per minute Respiratory Rate18 breath per minute Blood Pressure Pylwhvoj435 mm/Hg Blood Pressure Jsxdyacov14 mm/Hg COVID 19 Results in Last 7 daysNot Detected NPOyes ID Band On Patientpatient ID (name), allergy Consent Signedpending H&P Completeyes Anesthesia Assessment Completedpending EKG Performednot ordered Chest X-Ray Performednot ordered Preop Antibioticsnot ordered Type and Screen Resultedyes HCG Urine TestComplete SCD's Appliedsent to OR Denturesnot applicable Prostheticsnot applicable Hearing Aidsnot applicable Valuables Securednot applicable Skin Assessment: Skin Site(s) with Current Compromisenone Preop Education: Surgical Site Infection Preventionyes Language / Communication: Language / CommunicationEnglish Electronic Signatures: Linh Buchanan (RN) (Signed 21-Sep-2021 11:17) Authored: Preop Checklist Last Updated: 21-Sep-2021 11:17 by Linh Buchanan (RN) Normal [facility] REQUEST-LEUKOREDUCED RED ANJU LSon 09-21-2021 REQUEST-LEUKOREDUCED RED CELLS ORDER RECD Normal [facility] Comment on above: Performed By: #### A FPA3 #### [facility] [id number] [place] [id number] TYPE + SCREENon 09-21-2021 ABO TYPE O Normal [facility] Comment on above: Performed By: #### A FPA3 #### [facility] [address] [place] [id number] RH TYPE Positive Normal [facility] Comment on above: Performed By: #### A FPA3 #### [facility] [address] [place] [id number] ABO TYPE Canceled Normal [facility] Comment on above: Order Comment: VENECIA ESPINO, 09/21/2021 05:08TEST TYPE + SCREEN WAS CANCELLED, 09/21/2021 05:06 NO PHLEB ID ON TUBE. Result Comment: EULA ESPINO, 09/21/2021 05:08 Performed By: #### A FPA3 #### [facility] [address] [place] [id number] RH TYPE Canceled Normal [facility] Comment on above: Order Comment: VENECIA ESPINO, 09/21/2021 05:08TEST TYPE + SCREEN WAS CANCELLED, 09/21/2021 05:06 NO PHLEB ID ON TUBE. Result Comment: CALL ED RN AFSANEH ESPINO, 09/21/2021 05:08 Performed By: #### A FPA3 #### [facility] [address] [place] [address] CBCon 09-20-2021 Erythrocyte distribution width (RBC) [Ratio] 13.2 % Normal 11.5 - 14.5 [facility] Comment on above: Performed By: #### C BC #### [facility] [address] [place] [address] Hematocrit (Bld) [Volume fraction] 30.8 % Low 36.0 - 46.0 [facility] Comment on above: Performed By: #### C BC #### [facility] [address] [place] [address] Hemoglobin (Bld) [Mass/Vol] 9.8 g/dL Low 12.0 - 16.0 [facility] Comment on above: Performed By: #### C BC #### [facility] [address] [place] [address] MCHC (RBC) [Mass/Vol] 31.8 g/dL Low 32.0 - 36.0 [facility] Comment on above: Performed By: #### C BC #### [facility] [address] [place] [address] MCV (RBC) [Entitic vol] 93 fL Normal 80 - 100 [facility] Comment on above: Performed By: #### C BC #### [facility] [address] [place] [address] NUCLEATED RBC 0.0 /100 WBC Normal 0.0-0.0 [facility] Comment on above: Performed By: #### C BC #### [facility] [address] [place] [address] Platelets (Bld) [#/Vol] 224 10*3/uL Normal 150 - 450 [facility] Comment on above: Performed By: #### C BC #### [facility] [address] [place] [address] RBC 3.32 x10E12/L Low 4.00 - 5.20 [facility] Comment on above: Performed By: #### C BC #### [facility] [address] [place] [address] WBC (Bld) [#/Vol] 12.1 10*3/uL High 4.4 - 11.3 [facility] Comment on above: Performed By: #### C BC #### [facility] [address] [place] [address] Daily Progress Note-Neurosur leonidasyon 09-20-2021 Daily Progress Note-Neurosurgery Service: Neurosurgery Subjective Data: MORALES LEE is a 46 year old Female who is Hospital Day # 6 and POD #2 for 1. Exploration of spinal fusion;2. Reduction of L4/5 dislocation;2. L5-pelvis instrumented fusion with posterolateral arthrodesis;4. Extension of instrumentation with multiple kwame construct and side connectors. Objective Data: Objective Information: T PRBPSpO2 Value36.9778213/5095% Date/Time09/19 16: 1:341 16: 1:341 1:34 Range(36.7C - 36.7C ) (84 - 110 ) (18 - 18 ) (82 - 118 )/ (50 - 97 ) (94% - 97% ) As of 19-Sep-2021 08:00:00, patient is on 2 L/min of oxygen via nasal cannula. ---- Intake and Output ----- Mn/Dy/Year TimeIntakeOutputCount Includes [facility] Sep 18, 2021 10:00 [id number] The Intake and Output Totals for the last 24 hours are: IntakeOutputNet 1240nullnull Physical Exam by System: Neurological: A&Ox3 RUE D5, B5, T5, HG5, IO5 LUE D4+, B4+, T4+, HG4+, IO5 RLE HF 4+, KE4+, PF5, DF5 (pain limited) LLE HF 4-, KE4-, PF4, DF5 Recent Lab Results: Results: CBC: 09/19/2021 06:59 \ Hgb / \ 12.7 / WBC Plt 21.5 H 401 / Hct \ / 38.3 \ RBC: 4.28 MCV: 89 Neutrophil %: 80.1 RFP: 09/19/2021 06:59 NA+ Cl- BUN / 139 100 9 / ----- Glucose 82 K+ HCO3- Creat \ 4.5 26 0.60 \ Calcium : 8.3 LAnion Gap : 18 Albumin : 3.4 Phos : 2.8 Coagulation: 09/19/2021 06:59 PT / 11.5 / -------< INR < 1.0 PTT\ 29 \ Assessment and Plan: Code Status: Code StatusFull Code Assessment: Pt is a 46 yo F w/ h/o HTN, C6-7 ACDFF, T1 comp fx s/p T11-12 lami c/b worseing kyphosis s/p 12/2020 L1 transpedic decompression/SPOs/T5-L4 fusion, b/l ulnar neuorpathies p/w thoracic kyphosis. 09/16 BLE DVT US negative 09/18 s/p extension of instrumentation to L5 to pelvis w/reduction of L4-5 dislocation, post op w/no dorsiflexion or toe wiggle, CT LS hardware in correct position Plan: tele MRI L-spine w/ OOR anesthesia NPO since midnight chronic pain recs- intra-op ketamine, meloxicam post-op, CORRESPONDENT until good PT eval, Suboxone as OP COWS psych recs alvares for retention SCD's, SQH Attestation: Note Completion: I am a: Resident/Fellow Attending AttestationI reviewed the resident/fellows documentation and discussed the patient with the resident/fellow. I agree with the resident/fellows medical decision making as documented in the note. Electronic Signatures: Fidel Maciel (Resident)) (Signed 20-Sep-2021 02:09) Authored: Service, Subjective Data, Objective Data, Assessment and Plan, Note Completion Perez Carlisle) (Signed 21-Sep-2021 11:28) Authored: Note Completion Co-Signer: Service, Subjective Data, Objective Data, Assessment and Plan, Note Completion Last Updated: 21-Sep-2021 11:28 by Perez Carlisle) Normal [facility] Laboratory - Hematology and Cell countson 09-20-2021 Erythrocyte distribution width (RBC) [Ratio] 13.2 % See Below [facility] Work Phone: Comment on above: Reference Range: 11. 5 - 14.5 Hematocrit (Bld) [Volume fraction] 30.8 % below low threshold See Below [facility] [facility] [facility] Work Phone: Comment on above: Reference Range: 36. 0 - 46.0 Hemoglobin (Bld) [Mass/Vol] 9.8 g/dL below low threshold See Below [facility] [facility] Work Phone: Comment on above: Reference Range: 12. 0 - 16.0 MCHC (RBC) [Mass/Vol] 31.8 g/dL below low threshold See Below [facility] [facility] Work Phone: Comment on above: Reference Range: 32. 0 - 36.0 MCV (RBC) [Entitic vol] 93 fL 80 - 100 [facility] Work Phone: Platelets (Bld) [#/Vol] 224 10*3/uL 150 - 450 [facility] Work Phone: RBC (Bld) [#/Vol] 3.32 {x10E12/L} below low threshold See Below [facility] Work Phone: Comment on above: Reference Range: 4.0 0 - 5.20 WBC (Bld) [#/Vol] 12.1 10*3/uL above high threshold 4.4 - 11.3 [facility] Work Phone: MRI L Spine without Contrast on 09-20-2021 MR Lumbar spine WO contrast Normal [facility] Work Phone: MRI T Spine without Contrast on 09-20-2021 MR Thoracic spine WO contrast Normal [facility] Work Phone: No Panel Informationon 09-20 ORDER RECD [facility] Work Phone: 0.0 {/100_WBC} 0.0-0.0 [facility] [facility] Work Phone: OT Evaluation v2-occupationa l therapyon 09-20-2021 OT Evaluation v2-occupational therapy Rehab: Info: Mode of Treatmentoccupational therapy; attempted Time IN12:24 Evaluation Not PerformedOT orders received and chart reviewed. Patient hypotensive this date, significant drop in H/H. Per RN, patient to receive blood. RN asking therapy to hold this date. Electronic Signatures: Carole Carlos (OT) (Signed 20-Sep-2021 12:25) Authored: Info Last Updated: 20-Sep-2021 12:25 by Carole Carlos (OT) Normal [facility] PT Evaluation v2-attemptedon 09-20-2021 PT Evaluation v2-attempted Rehab: Info: Mode of Treatmentattempted Time IN12:00 Evaluation Not PerformedPer RN pt not appropriate for therapy, pt continues to have low BP and plan to receive blood, will hold and reattempt as appropriate Electronic Signatures: Kaykay Yoo (PT) (Signed 20-Sep-2021 12:42) Authored: Info Last Updated: 20-Sep-2021 12:42 by Kaykay Yoo (PT) Normal [facility] REQUEST-LEUKOREDUCED RED ANJU LSon 09-20-2021 REQUEST-LEUKOREDUCED RED CELLS ORDER RECD Normal [facility] Comment on above: Performed By: #### R ENAL #### [facility] [address] [place] [address] CBCon 09-19-2021 Erythrocyte distribution width (RBC) [Ratio] 12.4 % Normal 11.5 - 14.5 [facility] Comment on above: Performed By: #### R ENAL #### [facility] [address] [place] [address] Hematocrit (Bld) [Volume fraction] 38.3 % Normal 36.0 - 46.0 [facility] Comment on above: Performed By: #### R ENAL #### [facility] [address] [place] [address] Hemoglobin (Bld) [Mass/Vol] 13.4 g/dL Normal 12.0 - 16.0 [facility] [facility] Comment on above: Performed By: #### R ENAL #### [facility] [address] [place] [address] MCHC (RBC) [Mass/Vol] 35.0 g/dL Normal 32.0 - 36.0 [facility] Comment on above: Performed By: #### R ENAL #### [facility] [address] [place] [address] MCV (RBC) [Entitic vol] 85 fL Normal 80 - 100 [facility] Comment on above: Performed By: #### R ENAL #### [facility] [address] [place] [address] NUCLEATED RBC 0.0 /100 WBC Normal 0.0-0.0 [facility] Comment on above: Performed By: #### R ENAL #### [place] [id number] [place] [address] Platelets (Bld) [#/Vol] 326 10*3/uL Normal 150 - 450 [facility] Comment on above: Performed By: #### R ENAL #### [facility] [address] [place] [address] RBC 4.51 x10E12/L Normal 4.00 - 5.20 [facility] Comment on above: Performed By: #### R ENAL #### [facility] [address] [place] [address] WBC (Bld) [#/Vol] 20.5 10*3/uL High 4.4 - 11.3 [facility] Comment on above: Performed By: #### R ENAL #### [facility] [address] [place] [address] CBC AND DIFFERENTIALon 09-19 % AUTOMATED IMMATURE GRAN 0.6 % Normal 0.0 - 0.9 [facility] Comment on above: Result Comment: Jaleesa ture Granulocyte Count (IG) includes promyelocytes, myelocytes and metamyelocytes but does not include bands. Percent differential counts (%) should be interpreted in the context of the absolute cell counts (cells/L). Performed By: #### V FPA3 #### [facility] [address] [place] [address] Basophils (Bld) [#/Vol] 0.03 10*3/uL Normal 0.00 - 0.10 [facility] Comment on above: Performed By: #### V FPA3 #### [facility] [address] [place] [address] Basophils/100 WBC (Bld) 0.1 % Normal 0.0 - 2.0 [facility] Comment on above: Performed By: #### V FPA3 #### [facility] [address] [place] [address] Eosinophils (Bld) [#/Vol] 0.01 10*3/uL Normal 0.00 - 0.70 [facility] Comment on above: Performed By: #### V FPA3 #### [facility] [address] [place] [address] Eosinophils/100 WBC (Bld) 0.0 % Normal 0.0 - 6.0 [facility] Comment on above: Performed By: #### V FPA3 #### [facility] [address] [place] [address] Erythrocyte distribution width (RBC) [Ratio] 12.9 % Normal 11.5 - 14.5 [facility] Comment on above: Performed By: #### V FPA3 #### [facility] [address] [place] [address] Hematocrit (Bld) [Volume fraction] 38.3 % Normal 36.0 - 46.0 [facility] Comment on above: Performed By: #### V FPA3 #### [facility] [address] [place] [address] Hemoglobin (Bld) [Mass/Vol] 12.7 g/dL Normal 12.0 - 16.0 [facility] Comment on above: Performed By: #### V FPA3 #### [facility] [address] [place] [address] Lymphocytes (Bld) [#/Vol] 2.89 10*3/uL Normal 1.20 - 4.80 [facility] Comment on above: Performed By: #### V FPA3 #### [facility] [address] [place] [address] Lymphocytes/100 WBC (Bld) 13.5 % Normal 13.0 - 44.0 [facility] Comment on above: Performed By: #### V FPA3 #### [facility] [address] [place] [address] MCHC (RBC) [Mass/Vol] 33.2 g/dL Normal 32.0 - 36.0 [facility] Comment on above: Performed By: #### V FPA3 #### [facility] [address] [place] [address] MCV (RBC) [Entitic vol] 89 fL Normal 80 - 100 [facility] Comment on above: Performed By: #### V FPA3 #### [facility] [address] [place] [address] Monocytes (Bld) [#/Vol] 1.23 10*3/uL High 0.10 - 1.00 [facility] Comment on above: Performed By: #### V FPA3 #### [facility] [address] [place] [address] Monocytes/100 WBC (Bld) 5.7 % Normal 2.0 - 10.0 [facility] Comment on above: Performed By: #### V FPA3 #### [facility] [address] [place] [address] Neutrophils (Bld) [#/Vol] 17.16 10*3/uL High 1.20 - 7.70 [facility] Comment on above: Performed By: #### V FPA3 #### [facility] [address] [place] [address] Neutrophils/100 WBC (Bld) 80.1 % Normal 40.0 - 80.0 [facility] Comment on above: Performed By: #### V FPA3 #### [facility] [address] [place] [address] NUCLEATED RBC 0.0 /100 WBC Normal 0.0-0.0 [facility] Comment on above: Performed By: #### V FPA3 #### [facility] [address] [place] [address] Platelets (Bld) [#/Vol] 401 10*3/uL Normal 150 - 450 [facility] Comment on above: Performed By: #### V FPA3 #### [facility] [address] [place] [address] RBC 4.28 x10E12/L Normal 4.00 - 5.20 [facility] Comment on above: Performed By: #### V FPA3 #### [facility] [address] [place] [address] WBC (Bld) [#/Vol] 21.5 10*3/uL High 4.4 - 11.3 [facility] Comment on above: Performed By: #### V FPA3 #### [facility] [address] [place] [address] COAGULATION SCREENon 022 aPTT Coag (Bld) [Time] 29 s Normal 26 - 39 [facility] Comment on above: Result Comment: Note new reference range as of 08/04/2021 at 10:00am. Performed By: #### R ENAL #### [facility] [address] [place] [address] PT Coag (PPP) [Time] 11.5 s Normal 9.8 - 13.4 [facility] Comment on above: Result Comment: Note new reference range as of 08/04/2021 at 10:00am. Performed By: #### R ENAL #### [facility] [address] [place] [address] PT, INR 1.0 Normal 0.9 - 1.1 [facility] Comment on above: Performed By: #### R RASHAD #### [facility] [address] [place] [address] Complete Blood Count + Diffe vidya 09-19-2021 Basophils/100 WBC (Bld) 0.1 % 0.0 - 2.0 [facility] Work Phone: Erythrocyte distribution width (RBC) [Ratio] 12.9 % See Below [facility] Work Phone: Comment on above: Reference Range: 11. 5 - 14.5 Hematocrit (Bld) [Volume fraction] 38.3 % See Below [facility] Work Phone: Comment on above: Reference Range: 36. 0 - 46.0 Hemoglobin (Bld) [Mass/Vol] 12.7 g/dL See Below [facility] Work Phone: Comment on above: Reference Range: 12. 0 - 16.0 Lymphocytes/100 WBC (Bld) 13.5 % See Below [facility] Work Phone: Comment on above: Reference Range: 13. 0 - 44.0 MCHC (RBC) [Mass/Vol] 33.2 g/dL See Below [facility] Work Phone: Comment on above: Reference Range: 32. 0 - 36.0 MCV (RBC) [Entitic vol] 89 fL 80 - 100 [facility] Work Phone: Monocytes/100 WBC (Bld) 5.7 % 2.0 - 10.0 [facility] Work Phone: Neutrophils/100 WBC (Bld) 80.1 % See Below [facility] Work Phone: Comment on above: Reference Range: 40. 0 - 80.0 Platelets (Bld) [#/Vol] 401 10*3/uL 150 - 450 [facility] Work Phone: RBC (Bld) [#/Vol] 4.28 {x10E12/L} See Below [facility] Work Phone: Comment on above: Reference Range: 4.0 0 - 5.20 WBC (Bld) [#/Vol] 21.5 10*3/uL above high threshold 4.4 - 11.3 [facility] Work Phone: Complete Blood Count + Differential 0.0 % 0.0 - 6.0 [facility] Work Phone: Complete Blood Count + Differential 0.6 % 0.0 - 0.9 [facility] Work Phone: Comment on above: Immature Granulocyte Count (IG) includes promyelocytes, myelocytes and metamyelocytes but does not include bands. Percent differential counts (%) should be interpreted in the context of the absolute cell counts (cells/L). Complete Blood Count + Differential 0.0 {/100_WBC} 0.0-0.0 [facility] Work Phone: Complete Blood Count + Differential 0.03 {x10E9/L} See Below [facility] Work Phone: Comment on above: Reference Range: 0.0 0 - 0.10 Complete Blood Count + Differential 0.01 {x10E9/L} See Below [facility] Work Phone: Comment on above: Reference Range: 0.0 0 - 0.70 Complete Blood Count + Differential 1.23 {x10E9/L} above high threshold See Below [facility] Work Phone: Comment on above: Reference Range: 0.1 0 - 1.00 Complete Blood Count + Differential 2.89 {x10E9/L} See Below [facility] Work Phone: Comment on above: Reference Range: 1.2 0 - 4.80 Complete Blood Count + Differential 17.16 {x10E9/L} above high threshold See Below [facility] Work Phone: Comment on above: Reference Range: 1.2 0 - 7.70 Daily Progress Note-Nuha stearns 09-19-2021 Daily Progress Note-Neurosurgery Service: Neurosurgery Subjective Data: MORALES LEE is a 46 year old Female who is Hospital Day # 4 and POD #0 for 1. Exploration of spinal fusion;2. Reduction of L4/5 dislocation;2. L5-pelvis instrumented fusion with posterolateral arthrodesis;4. Extension of instrumentation with multiple kwame construct and side connectors. Objective Data: Objective Information: T PRBPSpO2 [id number]/8596% Date/Time09/18 17: 17: 17: 17: 17:40 Range(36.4C - 37C ) (71 - 85 ) (11 - 17 ) (84 - 117 )/ (43 - 85 ) (90% - 100% ) As of 18-Sep-2021 17:40:00, patient is on 4 L/min of oxygen via nasal cannula. Highest temp of 37 C was recorded at 09/18 0:00 Pain reported at 09/18 17:40: unable to assess; pt ad eisenberg when asked about pain ---- Intake and Output ----- Mn/Dy/Year TimeIntakeOutputNet Sep 17, 2021 10:00 [id number] The Intake and Output Totals for the last 24 hours are: IntakeOutputNet 1240nullnull Physical Exam by System: Neurological: A&Ox3 RUE D5, B5, T5, HG5, IO5 LUE D4+, B4+, T4+, HG4+, IO5 RLE HF 4+, KE4+, PF5, DF5 (pain limited) LLE HF 4-, KE4-, PF4, DF5 Recent Lab Results: Results: Recent Arterial Blood Gas Results 09/18/2021 11:48 [id number] 24 h range: ( 219 - 224 ) pH7.44 24 h range: ( 7.44 - 7.45 ) fNZ039 24 h range: ( 37 - 40 ) [id number] 24 h range: ( 100 - 100 ) Base Excess2.8 24 h range: ( 1.8 - 2.8 ) Tpltbyayjdn40.2 24 h range: ( 25.7 - 27.2 ) Assessment and Plan: Code Status: Code StatusFull Code Assessment: Pt is a 46 yo F w/ h/o HTN, C6-7 ACDFF, T1 comp fx s/p T11-12 lami c/b worseing kyphosis s/p 12/2020 L1 transpedic decompression/SPOs/T5-L4 fusion, b/l ulnar neuorpathies p/w thoracic kyphosis. 09/16 BLE DVT US negative 09/18 s/p extension of instrumentation to L5 to pelvis w/reduction of L4-5 dislocation, post op w/no dorsiflexion or toe wiggle, CT LS hardware in correct position Plan: tele chronic pain recs- intra-op ketamine, meloxicam post-op, Suboxone as OP COWS psych recs SCD's Attestation: Note Completion: I am a: Resident/Fellow Attending AttestationI saw and evaluated the patient. I personally obtained the schofield and critical portions of the history and physical exam or was physically present for schofeild and critical portions performed by the resident/fellow. I reviewed the resident/fellows documentation and discussed the patient with the resident/fellow. I agree with the resident/fellows medical decision making as documented in the note. I personally evaluated the patient [id number] Comments/ Additional Findings Patients postoperative CT scan looked a within normal limits with no evidence of any abnormal implants resulting in any foraminal or central canal compromised. Patient has been having weakness involving ankle plantar and Dorsiflexion with patchy numbness involving the foot and sole bilaterally in a non dermatomal distribution. She denied any obvious radicular pain in the LE and does not have any saddle anesthesia. She already has baseline urinary incontinence. She mentions her numbness has been improving after surgery . I discussed with her the various possible etiologies of her ankle DF/PF weakness, both surgical and non-surgical. She seems to be interested in waitful watching as she feels her sensory symptoms are improving. Unfortunately she has not been able to obtain any sort of advanced imaging in the form of CT scan or MRI right before the surgery that was ordered to rule out any underlying neural compression. At this point of time considering the fact that the post operative CT scan does not shows any obvious misplaced implants and no obvious bony canal occlusion with the she been continuing to be weak in her ankle planter and dorsiflexion primarily that cannot be explained by any other obvious etiology, we have been we have ordered an MRI but the patient has been not able to obtain that because of pain and does not wants to proceed with CT myelogram as an alternative MRI despite being told the necessity of it to rule out any nerve compression as a possibility of her weakness despite the fact that the spine is extremely well aligned as compared to before the surgery. We would try to obtain an MRI under anesthesia this point to rule out any stenosis involving the thoracic spine and lumbar spine to rule out any obvious stenosis that could be addressed by any further surgical intervention. I spoke with the patients in person regarding her clinical status and the further work up to decide if we can continue to watch her or she would require any surgical intervention. Electronic Signatures: Fidel Maciel (Resident)) (Signed 19-Sep-2021 02:50) Authored: Service, Subjective Data, Objective Data, Assessment and Plan, Note Completion Lex Frederick) (Signed 20-Sep-2021 11:58) Authored: Assessment an (more content not included)... Normal [facility] Laboratory - Coagulationon 0 09-19-2021 aPTT Coag (PPP) [Time] 29 s 26 - 39 [facility] Work Phone: Comment on above: Note new reference esther quiñones as of 08/04/2021 at 10:00am. INR Coag (PPP) [Relative time] 1.0 {INR} 0.9 - 1.1 [facility] Work Phone: PT Coag (PPP) [Time] 11.5 s 9.8 - 13.4 [facility] Work Phone: Comment on above: Note new reference r ishmael as of 08/04/2021 at 10:00am. MAGNESIUMon 09-19-2021 Magnesium [Mass/Vol] 1.59 mg/dL Low 1.60 - 2.40 [facility] Comment on above: Performed By: #### R ENAL #### [facility] [address] [place] [address] PT Evaluation v2-attemptedon 09-19-2021 PT Evaluation v2-attempted Rehab: Info: Mode of Treatmentattempted Time IN11:37 Time OUT11:50 Total Treatment [id number] Evaluation Not PerformedHistory obtained, BP assessed in supine 79/54mmHg, RN notified and redone with 71/51mmHg, will hold PT eval at this time and reattempt as medically appropriate Electronic Signatures: Kaykay Yoo (PT) (Signed 19-Sep-2021 12:14) Authored: Info Last Updated: 19-Sep-2021 12:14 by Kaykay Yoo (PT) Normal [facility] RENAL FUNCTION PANELon 09-19 Albumin [Mass/Vol] 3.4 g/dL Normal 3.4 - 5.0 [facility] Comment on above: Performed By: #### A FPA3 #### [facility] [address] [place] [address] Anion gap [Moles/Vol] 18 mmol/L Normal 10 - 20 [facility] Comment on above: Performed By: #### A FPA3 #### [facility] [address] [place] [address] Calcium [Mass/Vol] 8.3 mg/dL Low 8.6 - 10.6 [facility] Comment on above: Performed By: #### A FPA3 #### [facility] [address] [place] [address] Chloride [Moles/Vol] 100 mmol/L Normal 98 - 107 [facility] Comment on above: Performed By: #### A FPA3 #### [facility] [address] [place] [address] Creatinine [Mass/Vol] 0.60 mg/dL Normal 0.50 - 1.05 [facility] Comment on above: Performed By: #### A FPA3 #### [facility] [address] [place] [address] eGFR FEMALE >90 Normal >90 [facility] Comment on above: Result Comment: CALC ULATIONS OF ESTIMATED GFR ARE PERFORMED USING THE 2020 CKD-EPI STUDY REFIT EQUATION WITHOUT THE RACE VARIABLE FOR THE IDMS-TRACEABLE CREATININE METHODS. https://jasn.asnjournals.org/content/early/ASN.9622990 988 Performed By: #### A FPA3 #### [facility] [address] [place] [address] Glucose [Mass/Vol] 82 mg/dL Normal 74 - 99 [facility] Comment on above: Performed By: #### A FPA3 #### [facility] [address] [place] [address] HCO3 (Bld) [Moles/Vol] 26 mmol/L Normal 21 - 32 [facility] Comment on above: Performed By: #### A FPA3 #### [facility] [address] [place] [address] Phosphate [Mass/Vol] 2.8 mg/dL Normal 2.5 - 4.9 [facility] Comment on above: Result Comment: The performance characteristics of phosphorus testing in heparinized plasma have been validated by the individual laboratory site where testing is performed. Testing on heparinized plasma is not approved by the FDA; however, such approval is not necessary. Performed By: #### A FPA3 #### [facility] [address] [place] [address] Potassium [Moles/Vol] 4.5 mmol/L Normal 3.5 - 5.3 [facility] Comment on above: Performed By: #### A FPA3 #### [facility] [address] [place] [address] Sodium [Moles/Vol] 139 mmol/L Normal 136 - 145 [facility] Comment on above: Performed By: #### A FPA3 #### [facility] [address] [place] [address] Urea nitrogen [Mass/Vol] 9 mg/dL Normal 6 - 23 [facility] Comment on above: Performed By: #### A FPA3 #### [facility] [address] [place] [address] Albumin [Mass/Vol] 3.6 g/dL Normal 3.4 - 5.0 [facility] Comment on above: Performed By: #### R ENAL #### [facility] [address] [place] [address] Anion gap [Moles/Vol] 13 mmol/L Normal 10 - 20 [facility] Comment on above: Performed By: #### R ENAL #### [facility] [address] [place] [address] Calcium [Mass/Vol] 8.9 mg/dL Normal 8.6 - 10.6 [facility] Comment on above: Performed By: #### R ENAL #### [facility] [address] [place] [address] Chloride [Moles/Vol] 100 mmol/L Normal 98 - 107 [facility] Comment on above: Performed By: #### R ENAL #### [facility] [address] [place] [address] Creatinine [Mass/Vol] 0.51 mg/dL Normal 0.50 - 1.05 [facility] Comment on above: Performed By: #### R ENAL #### [facility] [address] [place] [address] eGFR FEMALE >90 Normal >90 [facility] Comment on above: Result Comment: CALC ULATIONS OF ESTIMATED GFR ARE PERFORMED USING THE 2020 CKD-EPI STUDY REFIT EQUATION WITHOUT THE RACE VARIABLE FOR THE IDMS-TRACEABLE CREATININE METHODS. https://jasn.asnjournals.org/content//ASN.5997942 988 Performed By: #### R ENAL #### [facility] [address] [place] [address] Glucose [Mass/Vol] 123 mg/dL High 74 - 99 [facility] Comment on above: Performed By: #### R ENAL #### [facility] [address] [place] [address] HCO3 (Bld) [Moles/Vol] 28 mmol/L Normal 21 - 32 [facility] Comment on above: Performed By: #### R ENAL #### [facility] [address] [place] [address] Phosphate [Mass/Vol] 2.8 mg/dL Normal 2.5 - 4.9 [facility] Comment on above: Result Comment: The performance characteristics of phosphorus testing in heparinized plasma have been validated by the individual laboratory site where testing is performed. Testing on heparinized plasma is not approved by the FDA; however, such approval is not necessary. Performed By: #### R ENAL #### [facility] [address] [place] [address] Potassium [Moles/Vol] 4.3 mmol/L Normal 3.5 - 5.3 [facility] Comment on above: Performed By: #### R ENAL #### [facility] [address] [place] [address] Sodium [Moles/Vol] 137 mmol/L Normal 136 - 145 [facility] Comment on above: Performed By: #### R ENAL #### [facility] [address] [place] [address] Urea nitrogen [Mass/Vol] 8 mg/dL Normal 6 - 23 [facility] Comment on above: Performed By: #### R ENAL #### [facility] [address] [place] [address] Renal Function Panelon 09-19 Albumin BCP dye [Mass/Vol] 3.4 g/dL 3.4 - 5.0 [facility] Work Phone: Anion gap [Moles/Vol] 18 mmol/L 10 - 20 [facility] Work Phone: Calcium [Mass/Vol] 8.3 mg/dL below low threshold 8.6 - 10.6 [facility] Work Phone: Chloride [Moles/Vol] 100 mmol/L 98 - 107 [facility] Work Phone: CO2 [Moles/Vol] 26 mmol/L 21 - 32 [facility] Work Phone: Creatinine [Mass/Vol] 0.60 mg/dL See Below [facility] Work Phone: Comment on above: Reference Range: 0.5 0 - 1.05 Glucose [Mass/Vol] 82 mg/dL 74 - 99 [facility] Work Phone: Phosphate [Mass/Vol] 2.8 mg/dL 2.5 - 4.9 [facility] Work Phone: Comment on above: The performance arsalan acteristics of phosphorus testing in heparinized plasma have been validated by the individual laboratory site where testing is performed. Testing on heparinized plasma is not approved by the FDA; however, such approval is not necessary. Potassium [Moles/Vol] 4.5 mmol/L 3.5 - 5.3 [facility] Work Phone: Sodium [Moles/Vol] 139 mmol/L 136 - 145 [facility] Work Phone: Urea nitrogen [Mass/Vol] 9 mg/dL 6 - 23 [facility] Work Phone: Renal Function Panel >90 >90 [facility] Work Phone: Comment on above: CALCULATIONS OF IVY MATED GFR ARE PERFORMED USING THE 2020 CKD-EPI STUDY REFIT EQUATION WITHOUT THE RACE VARIABLE FOR THE IDMS-TRACEABLE CREATININE METHODS.https://jasn.asnjournals.org/content/early/ASN .7339742630 ANTIBODY IDENT.on 09-18-2021 ANTIBODY IDENT. Anti-E Normal [facility] Comment on above: Performed By: #### A FPA3 #### [facility] [address] [place] [address] ARTERIAL FULL PANELon 2021 Anion gap [Moles/Vol] 5 mmol/L Low 10 - 25 [facility] Comment on above: Performed By: #### A FPA3 ####[id number] [place] [address] BASE EXCESS-BLOOD 2.8 mmol/L Normal -2.0 - 3.0 [facility] Comment on above: Performed By: #### A FPA3 ####[id number] [place] [address] BICARB, CALCULATED 27.2 mmol/L High 22.0 - 26.0 [facility] Comment on above: Performed By: #### A FPA3 ####[id number] [place] [address] CALCIUM,IONIZED 1.20 mmol/L Normal 1.10 - 1.33 [facility] Comment on above: Performed By: #### A FPA3 ####[id number] [place] [address] Chloride [Moles/Vol] 106 mmol/L Normal 98 - 107 [facility] Comment on above: Performed By: #### A FPA3 ####[id number] [place] [address] Glucose [Mass/Vol] 149 mg/dL High 74 - 99 [facility] Center Comment on above: Performed By: #### A FPA3 ####[id number] [place] [address] Hematocrit (Bld) [Volume fraction] 38.0 % Normal 36.0 - 46.0 [facility] Comment on above: Performed By: #### A FPA3 ####[id number] [place] [address] HGB,CALCULATED 12.9 g/dL Normal 12.0 - 16.0 [facility] Comment on above: Performed By: #### A FPA3 ####[id number] [place] [address] Lactate [Moles/Vol] 0.9 mmol/L Normal 0.4 - 2.0 [facility] Comment on above: Performed By: #### A FPA3 ####[id number] [place] [address] Oxygen (Bld) [Partial pressure] 219 mm[Hg] High 85 - 95 [facility] Comment on above: Performed By: #### A FPA3 ####[id number] [place] [address] PATIENT TEMPERATURE 37.0 degrees C Normal [facility] Comment on above: Result Comment: NOTE : PATIENT RESULTS ARE NOT CORRECTED FOR TEMPERATURE. Performed By: #### A FPA3 ####[id number] [place] [address] PCO2 40 mmHg Normal 38 - 42 [facility] Comment on above: Performed By: #### A FPA3 ####[id number] [place] [address] pH (Bld) 7.44 [pH] High 7.38 - 7.42 [facility] Comment on above: Performed By: #### A FPA3 ####[id number] [place] [address] Potassium [Moles/Vol] 4.4 mmol/L Normal 3.5 - 5.3 [facility] Comment on above: Performed By: #### A FPA3 ####[id number] [place] [address] SO2 100 % Normal 94 - 100 [facility] Comment on above: Performed By: #### A FPA3 ####[id number] [place] [address] Sodium [Moles/Vol] 134 mmol/L Low 136 - 145 [facility] Comment on above: Performed By: #### A FPA3 ####[id number] [place] [address] Anion gap [Moles/Vol] 7 mmol/L Low 10 - 25 [facility] Comment on above: Performed By: #### A FPA3 #### [facility] [address] [place] [address] BASE EXCESS-BLOOD 1.8 mmol/L Normal -2.0 - 3.0 [facility] Comment on above: Performed By: #### A FPA3 #### [facility] [address] [place] [address] BICARB, CALCULATED 25.7 mmol/L Normal 22.0 - 26.0 [facility] Comment on above: Performed By: #### A FPA3 #### [facility] [address] [place] [address] CALCIUM,IONIZED 1.20 mmol/L Normal 1.10 - 1.33 [facility] Comment on above: Performed By: #### A FPA3 #### [facility] [address] [place] [address] Chloride [Moles/Vol] 105 mmol/L Normal 98 - 107 [facility] Comment on above: Performed By: #### A FPA3 #### [facility] [address] [place] [address] Glucose [Mass/Vol] 174 mg/dL High 74 - 99 [facility] Comment on above: Performed By: #### A FPA3 #### [facility] [address] [place] [address] Hematocrit (Bld) [Volume fraction] 37.0 % Normal 36.0 - 46.0 [facility] Comment on above: Performed By: #### A FPA3 #### [facility] [address] [place] [address] HGB,CALCULATED 12.6 g/dL Normal 12.0 - 16.0 [facility] Comment on above: Performed By: #### A FPA3 #### [facility] [address] [place] [address] Lactate [Moles/Vol] 1.1 mmol/L Normal 0.4 - 2.0 [facility] Comment on above: Performed By: #### A FPA3 #### [facility] [address] [place] [address] Oxygen (Bld) [Partial pressure] 224 mm[Hg] High 85 - 95 [facility] Comment on above: Performed By: #### A FPA3 #### [facility] [address] [place] [address] PATIENT TEMPERATURE 37.0 degrees C Normal [facility] Comment on above: Result Comment: NOTE : PATIENT RESULTS ARE NOT CORRECTED FOR TEMPERATURE. Performed By: #### A FPA3 #### [facility] [address] [place] [address] PCO2 37 mmHg Low 38 - 42 [facility] Comment on above: Performed By: #### A FPA3 #### [facility] [address] [place] [address] pH (Bld) 7.45 [pH] High 7.38 - 7.42 [facility] Comment on above: Performed By: #### A FPA3 #### [facility] [address] [place] [address] Potassium [Moles/Vol] 3.9 mmol/L Normal 3.5 - 5.3 [facility] Comment on above: Performed By: #### A FPA3 #### [facility] [address] [place] [address] SO2 100 % Normal 94 - 100 [facility] Comment on above: Performed By: #### A FPA3 #### [facility] [address] [place] [address] Sodium [Moles/Vol] 134 mmol/L Low 136 - 145 [facility] Comment on above: Performed By: #### A FPA3 #### [facility] [address] [place] [address] CT L Spine without Contrasto n 09-18-2021 CT Lumbar spine limited WO contrast Normal [facility] Work Phone: Daily Progress Note-Anesthes iologyon 09-18-2021 Daily Progress Note-Anesthesiology Service: Anesthesiology Subjective Data: MORALES LEE is a 46 year old Female who is Hospital Day # 4 and POD #0 for 1. Exploration of spinal fusion;2. Reduction of L4/5 dislocation;2. L5-pelvis instrumented fusion with posterolateral arthrodesis;4. Extension of instrumentation with multiple kwame construct and side connectors. Objective Data: Objective Information: T PRBPSpO2 [id number]% Date/Time09/18 6:041 5: 5: 5: 5:56 Range(37C - 37C ) (71 - 85 ) (11 - 18 ) (80 - 99 )/ (43 - 58 ) (90% - 100% ) Highest temp of 37 C was recorded at 09/17 16:00 Pain reported at 09/18 7:10: 7 = Severe No sign of pneumothorax on CXR after central line placement. Catheter tip appropriately near RA in SVC. Recent Lab Results: Results: Recent Arterial Blood Gas Results 09/18/2021 11:48 [id number] 24 h range: ( 219 - 224 ) pH7.44 24 h range: ( 7.44 - 7.45 ) vVX974 24 h range: ( 37 - 40 ) [id number] 24 h range: ( 100 - 100 ) Base Excess2.8 24 h range: ( 1.8 - 2.8 ) Aptzluvmbgb44.2 24 h range: ( 25.7 - 27.2 ) Assessment and Plan: Code Status: Code StatusFull Code Electronic Signatures: Bryan Mora) (Signed 18-Sep-2021 14:47) Authored: Service, Subjective Data, Objective Data, Assessment and Plan, Note Completion Last Updated: 18-Sep-2021 14:47 by Bryan Mora) Normal [facility] Daily Progress Note-Neurosur jinny 09-18-2021 Daily Progress Note-Neurosurgery Service: Neurosurgery Subjective Data: MORALES LEE is a 46 year old Female who is Hospital Day # 4. Objective Data: Objective Information: T PRBPSpO2 [id number]/4391% Date/Time09/18 6: 5: 5: 5: 5:56 Range(36.6C - 37C ) (71 - 89 ) (11 - 19 ) (80 - 108 )/ (41 - 90 ) (90% - 100% ) As of 17-Sep-2021 12:00:00, patient is on 2 L/min of oxygen via nasal cannula. Highest temp of 37 C was recorded at 09/17 16:00 Pain reported at 09/17 22:05: 8 = Severe ---- Intake and Output ----- Mn/Dy/Year TimeIntakeOutputNet Sep 17, 2021 10:00 [id number] Sep 17, 2021 2:00 [id number] The Intake and Output Totals for the last 24 hours are: IntakeOutputNet [id number] Physical Exam by System: Neurological: A&Ox3 RUE D5, B5, T5, HG5, IO5 LUE D4+, B4+, T4+, HG4+, IO5 RLE HF 4+, KE4+, PF5, DF5 (pain limited) LLE HF 4-, KE4-, PF4, DF5 Recent Lab Results: Results: CBC: 09/16/2021 07:54 \ Hgb / \ 14.1 / WBC Plt 8.5 278 / Hct \ / 42.7 \ RBC: 4.70 MCV: 91 Neutrophil %: 53.3 RFP: 09/16/2021 07:54 NA+ Cl- BUN / 140 101 10 / ----- Glucose 88 K+ HCO3- Creat \ 3.7 29 0.63 \ Calcium : 8.9Anion Gap : 14 Albumin : 3.5 Phos : 3.4 Coagulation: 09/16/2021 07:54 PT / 11.6 / -------< INR < 1.0 PTT\ 31 \ Assessment and Plan: Code Status: Code StatusFull Code Assessment: Pt is a 46 yo F w/ h/o HTN, C6-7 ACDFF, T1 comp fx s/p T11-12 lami c/b worseing kyphosis s/p 12/2020 L1 transpedic decompression/SPOs/T5-L4 fusion, b/l ulnar neuorpathies p/w thoracic kyphosis. Plan: tele OR 09/19 MRI L spine w/o medicine recs- Ok to proceed chronic pain recs- intra-op ketamine, meloxicam post-op, Suboxone as OP COWS psych recs SCD's Attestation: Note Completion: I am a: Resident/Fellow Attending AttestationI saw and evaluated the patient. I personally obtained the schofield and critical portions of the history and physical exam or was physically present for schofield and critical portions performed by the resident/fellow. I reviewed the resident/fellows documentation and discussed the patient with the resident/fellow. I agree with the resident/fellows medical decision making as documented in the note. I personally evaluated the patient [id number] Electronic Signatures: Fidel Maciel (Resident)) (Signed 18-Sep-2021 06:55) Authored: Service, Subjective Data, Objective Data, Assessment and Plan, Note Completion Lex Frederick) (Signed 19-Sep-2021 10:18) Authored: Note Completion Co-Signer: Service, Subjective Data, Objective Data, Assessment and Plan, Note Completion Last Updated: 19-Sep-2021 10:18 by Lex Frederick) Normal [facility] Laboratory - Chemistry and C hemistry - challengeon 09-18-2021 Anion gap (Bld) [Moles/Vol] 5 mmol/L below low threshold 10 - 25 [facility] Work Phone: Calcium.ionized (Bld) [Moles/Vol] 1.20 mmol/L See Below [facility] Work Phone: Comment on above: Reference Range: 1.1 0 - 1.33 Chloride [Moles/Vol] 106 mmol/L 98 - 107 [facility] Work Phone: CO2 (Bld) [Partial pressure] 40 mm[Hg] 38 - 42 [facility] Work Phone: Glucose [Mass/Vol] 149 mg/dL above high threshold 74 - 99 [facility] Work Phone: HCO3 (Bld) [Moles/Vol] 27.2 mmol/L above high threshold See Below [facility] Work Phone: Comment on above: Reference Range: 22. 0 - 26.0 Lactate [Moles/Vol] 0.9 mmol/L 0.4 - 2.0 [facility] I Work Phone: Oxygen (Bld) [Partial pressure] 219 mm[Hg] above high threshold 85 - 95 [facility] Work Phone: pH (Bld) 7.44 [pH] above high threshold See Below [facility] Work Phone: Comment on above: Reference Range: 7.3 8 - 7.42 Potassium [Moles/Vol] 4.4 mmol/L 3.5 - 5.3 [facility] Work Phone: Sodium [Moles/Vol] 134 mmol/L below low threshold 136 - 145 [facility] Work Phone: Anion gap (Bld) [Moles/Vol] 7 mmol/L below low threshold 10 - 25 [facility] Work Phone: Calcium.ionized (Bld) [Moles/Vol] 1.20 mmol/L See Below [facility] Work Phone: Comment on above: Reference Range: 1.1 0 - 1.33 Chloride [Moles/Vol] 105 mmol/L 98 - 107 [facility] I Work Phone: CO2 (Bld) [Partial pressure] 37 mm[Hg] below low threshold 38 - 42 [facility] Work Phone: Glucose [Mass/Vol] 174 mg/dL above high threshold 74 - 99 [facility] Work Phone: HCO3 (Bld) [Moles/Vol] 25.7 mmol/L See Below [facility] Work Phone: Comment on above: Reference Range: 22. 0 - 26.0 Lactate [Moles/Vol] 1.1 mmol/L 0.4 - 2.0 [facility] Work Phone: Oxygen (Bld) [Partial pressure] 224 mm[Hg] above high threshold 85 - 95 [facility] Work Phone: pH (Bld) 7.45 [pH] above high threshold See Below [facility] Work Phone: Comment on above: Reference Range: 7.3 8 - 7.42 Potassium [Moles/Vol] 3.9 mmol/L 3.5 - 5.3 [facility] Work Phone: Sodium [Moles/Vol] 134 mmol/L below low threshold 136 - 145 [facility] Work Phone: Anion gap (Bld) [Moles/Vol] 6 mmol/L below low threshold 10 - 25 [facility] Work Phone: Calcium.ionized (Bld) [Moles/Vol] 1.17 mmol/L See Below [facility] Work Phone: Comment on above: Reference Range: 1.1 0 - 1.33 Chloride [Moles/Vol] 103 mmol/L 98 - 107 [facility] Work Phone: CO2 (BldV) [Partial pressure] 42 mm[Hg] 41 - 51 [facility] Work Phone: Glucose [Mass/Vol] 188 mg/dL above high threshold 74 - 99 [facility] Work Phone: HCO3 (Bld) [Moles/Vol] 28.5 mmol/L above high threshold See Below [facility] Work Phone: Comment on above: Reference Range: 22. 0 - 26.0 Lactate [Moles/Vol] 1.2 mmol/L 0.4 - 2.0 [facility] Work Phone: Oxygen (BldV) [Partial pressure] 56 mm[Hg] above high threshold 35 - 45 [facility] Work Phone: pH (BldV) 7.44 [pH] above high threshold See Below [facility] Work Phone: Comment on above: Reference Range: 7.3 3 - 7.43 Potassium [Moles/Vol] 4.1 mmol/L 3.5 - 5.3 [facility] Work Phone: Sodium [Moles/Vol] 133 mmol/L below low threshold 136 - 145 [facility] Work Phone: Laboratory - Hematology and Cell countson 09-18-2021 Erythrocyte distribution width (RBC) [Ratio] 12.4 % See Below [facility] Work Phone: Comment on above: Reference Range: 11. 5 - 14.5 Hematocrit (Bld) [Volume fraction] 38.3 % See Below [facility] Work Phone: Comment on above: Reference Range: 36. 0 - 46.0 Hemoglobin (Bld) [Mass/Vol] 13.4 g/dL See Below [facility] Work Phone: Comment on above: Reference Range: 12. 0 - 16.0 MCHC (RBC) [Mass/Vol] 35.0 g/dL See Below [facility] Work Phone: Comment on above: Reference Range: 32. 0 - 36.0 MCV (RBC) [Entitic vol] 85 fL 80 - 100 [facility] Work Phone: Platelets (Bld) [#/Vol] 326 10*3/uL 150 - 450 [facility] Work Phone: RBC (Bld) [#/Vol] 4.51 {x10E12/L} See Below [facility] Work Phone: Comment on above: Reference Range: 4.0 0 - 5.20 WBC (Bld) [#/Vol] 20.5 10*3/uL above high threshold 4.4 - 11.3 [facility] Work Phone: Hematocrit (Bld) [Volume fraction] 38.0 % See Below [facility] Work Phone: Comment on above: Reference Range: 36. 0 - 46.0 Hemoglobin (Bld) [Mass/Vol] 12.9 g/dL See Below [facility] Work Phone: Comment on above: Reference Range: 12. 0 - 16.0 Hematocrit (Bld) [Volume fraction] 37.0 % See Below [facility] Work Phone: Comment on above: Reference Range: 36. 0 - 46.0 Hemoglobin (Bld) [Mass/Vol] 12.6 g/dL See Below [facility] Work Phone: Comment on above: Reference Range: 12. 0 - 16.0 Hematocrit (Bld) [Volume fraction] 39.0 % See Below [facility] Work Phone: Comment on above: Reference Range: 36. 0 - 46.0 Hemoglobin (Bld) [Mass/Vol] 13.3 g/dL See Below [facility] Work Phone: Comment on above: Reference Range: 12. 0 - 16.0 Magnesium, Serumon 2 Magnesium [Mass/Vol] 1.59 mg/dL below low threshold See Below [facility] Work Phone: Comment on above: Reference Range: 1.6 0 - 2.[address] L-SPINE WO CONTRASTon 09-18-[address] L-SPINE WO CONTRAST Patient Name: MORALES LEE STUDY: CT L-SPINE WO CONTRAST 09/18/2021 7:32 pm INDICATION: difficulty dorsiflex bilaterally, Lie Flat: Yes COMPARISON: CT of the lumbar spine dated 10/07/2020. MRI dated 12/11/2020 ACCESSION NUMBER(S): [id number] ORDERING CLINICIAN: ANGELO JUAREZ TECHNIQUE: Thin cut axial CT images through the lumbar spine were obtained and reconstructed in the coronal and sagittal planes. FINDINGS: There are posterior laminectomies extending from the L1 level cranially through the visualized T10 level. There is new posterior-lateral orthopedic fixation hardware and pedicle screws extending from the S2 level cranially through the lumbar and visualized lower thoracic region be on the field of view at the T10 level. Caudally, orthopedic screws are identified extending into the posterolateral iliac bones bilaterally. There is scattered foci of air and intermediate attenuation scattered within the posterior paraspinal soft tissues surrounding the posterior-lateral orthopedic fixation hardware. The orthopedic hardware appears intact. There is again evidence of chronic collapse anterior wedging of the L1 vertebral body with mild retropulsion of the superior/posterior margin of the collapsed L1 vertebral body. There is additional more mild collapse of the superior endplates of the L2, L3, L4, and L5 vertebrae as well as a component of collapse and anterior wedging of the T11 and T12 vertebrae. The coronal reconstructed images demonstrate a mild dextrocurvature of the lumbar spine. There is again evidence of multilevel spondylosis within the lumbar and visualized lower thoracic region. Metallic artifact from the patient's orthopedic hardware limits evaluation of the soft tissues of the spinal canal. IMPRESSION: There are posterior laminectomies extending from the L1 level cranially through the visualized T10 level. There is new posterior-lateral orthopedic fixation hardware and pedicle screws extending from the S2 level cranially through the lumbar and visualized lower thoracic region be on the field of view at the T10 level. Caudally, orthopedic screws are identified extending into the posterolateral iliac bones bilaterally. There is scattered foci of air and intermediate attenuation scattered within the posterior paraspinal soft tissues surrounding the posterior-lateral orthopedic fixation hardware. The orthopedic hardware appears intact. There is again evidence of chronic collapse anterior wedging of the L1 vertebral body with mild retropulsion of the superior/posterior margin of the collapsed L1 vertebral body. There is additional more mild collapse of the superior endplates of the L2, L3, L4, and L5 vertebrae as well as a component of collapse and anterior wedging of the T11 and T12 vertebrae. The coronal reconstructed images demonstrate a mild dextrocurvature of the lumbar spine. There is again evidence of multilevel spondylosis within the lumbar and visualized lower thoracic region. Metallic artifact from the patient's orthopedic hardware limits evaluation of the soft tissues of the spinal canal. I personally reviewed the image(s) / study and the interpretation of Dr. Isai Bey MD. I agree with the findings as stated. This study was interpreted at [facility], [place], [place]. Electronically signed by: BOONE LAO MD Normal [facility] No Panel Informationon 09-18 0.0 {/100_WBC} 0.0-0.0 [facility] Work Phone: Please click on the link to view the study images Normal [facility] Work Phone: 2.8 mmol/L -2.0 - 3.0 [facility] Work Phone: 100 % 94 - 100 [facility] Work Phone: 37.0 {degrees_C} [facility] Work Phone: Comment on above: NOTE: PATIENT RESULT S ARE NOT CORRECTED FOR TEMPERATURE. 1.8 mmol/L -2.0 - 3.0 [facility] Work Phone: 100 % 94 - 100 [facility] Work Phone: 37.0 {degrees_C} [facility] Work Phone: Comment on above: NOTE: PATIENT RESULT S ARE NOT CORRECTED FOR TEMPERATURE. 3.9 mmol/L above high threshold -2.0 - 3.0 [facility] Work Phone: 91 % above high threshold 45 - 75 [facility] Work Phone: 37.0 {degrees_C} [facility] Work Phone: Comment on above: NOTE: PATIENT RESULT S ARE NOT CORRECTED FOR TEMPERATURE. Please click on the link to view the study images Normal [facility] Work Phone: Preop Checkliston 09-18-2021 Preop Checklist Preop Checklist: Preop Checklist: Temperature C37 degrees C Temperature F98.6 degrees F Heart Rate75 beats per minute Respiratory Rate15 breath per minute Blood Pressure Hbpdrilh68 mm/Hg Blood Pressure Nuroalcnv45 mm/Hg COVID 19 Results in Last 7 daysNot Detected NPOyes Type and Screen Resultedyes SCD's Appliedno Valuables Securedleft in patient room Respiratory Assessment: Respirationsregular Air Exchangeequal Neurological Assessment: Level of Consciousnessalert, oriented Able to Express Selfyes Age Appropriateyes Emotional Statuscalm Language / Communication: Language / CommunicationEnglish Electronic Signatures: Lian Zuleta (SANAZ) (Signed 18-Sep-2021 06:59) Authored: Preop Checklist Last Updated: 18-Sep-2021 06:59 by Lian Zuleta (SANAZ) Normal [facility] Radiologyon 09-18-2021 XR Chest Single view Normal [facility] Work Phone: Renal Function Panelon 09-18 Albumin BCP dye [Mass/Vol] 3.6 g/dL 3.4 - 5.0 [facility] Work Phone: Anion gap [Moles/Vol] 13 mmol/L 10 - 20 [facility] Work Phone: Calcium [Mass/Vol] 8.9 mg/dL 8.6 - 10.6 [facility] Work Phone: Chloride [Moles/Vol] 100 mmol/L 98 - 107 [facility] Work Phone: CO2 [Moles/Vol] 28 mmol/L 21 - 32 [facility] Work Phone: Creatinine [Mass/Vol] 0.51 mg/dL See Below [facility] Work Phone: Comment on above: Reference Range: 0.5 0 - 1.05 Glucose [Mass/Vol] 123 mg/dL above high threshold 74 - 99 [facility] Work Phone: Phosphate [Mass/Vol] 2.8 mg/dL 2.5 - 4.9 [facility] Work Phone: Comment on above: The performance arsalan acteristics of phosphorus testing in heparinized plasma have been validated by the individual laboratory site where testing is performed. Testing on heparinized plasma is not approved by the FDA; however, such approval is not necessary. Potassium [Moles/Vol] 4.3 mmol/L 3.5 - 5.3 [facility] Work Phone: Sodium [Moles/Vol] 137 mmol/L 136 - 145 [facility] Work Phone: Urea nitrogen [Mass/Vol] 8 mg/dL 6 - 23 [facility] Work Phone: Renal Function Panel >90 >90 [facility] Work Phone: Comment on above: CALCULATIONS OF IVY MATED GFR ARE PERFORMED USING THE 2020 CKD-EPI STUDY REFIT EQUATION WITHOUT THE RACE VARIABLE FOR THE IDMS-TRACEABLE CREATININE METHODS.https://jasn.asnjournals.org/content/early//ASN .9403087853 TH CHEST; 1 VIEWon 2 TH CHEST; 1 VIEW Patient Name: MORALES LEE STUDY: CHEST; 1 VIEW; 09/18/2021 2:38 pm INDICATION: s/p central line placement (right IJ double lumen) . COMPARISON: Radiograph dated 09/15/2021 ACCESSION NUMBER(S): [id number] ORDERING CLINICIAN: BRYAN MORA FINDINGS: Right IJ central venous catheter is projecting over mid to distal SV C. The cardiac silhouette size is unchanged. Unchanged elevated right hemidiaphragm. Mild bibasilar atelectasis. No sizable pleural effusion, marlo edema or pneumothorax. No acute osseous abnormality. Postsurgical changes status post posterior fusion of the thoracic and of the lumbar spine, partially imaged. There is also postsurgical changes in the cervical spine. IMPRESSION: 1. Medical appliances and postsurgical changes as described above. 2. Mild bibasilar atelectasis with no focal infiltrate, pleural effusion or pneumothorax. 3. Unchanged elevated right hemidiaphragm. Electronically signed by: LORELEI JOHNSTON MD Normal [facility] VENOUS FULL PANELon 09-18-19 22 Anion gap [Moles/Vol] 6 mmol/L Low 10 - 25 [facility] Comment on above: Performed By: #### V FPA3 #### [facility] [id number] [place] [address] BASE EXCESS-BLOOD 3.9 mmol/L High -2.0 - 3.0 [facility] Comment on above: Performed By: #### V FPA3 #### [facility] [address] [place] [address] BICARB, CALCULATED 28.5 mmol/L High 22.0 - 26.0 [facility] Comment on above: Performed By: #### V FPA3 #### [facility] [address] [place] [address] CALCIUM,IONIZED 1.17 mmol/L Normal 1.10 - 1.33 [facility] Comment on above: Performed By: #### V FPA3 #### [facility] [address] [place] [address] Chloride [Moles/Vol] 103 mmol/L Normal 98 - 107 [facility] Comment on above: Performed By: #### V FPA3 #### [facility] [address] [place] [address] Glucose [Mass/Vol] 188 mg/dL High 74 - 99 [facility] Comment on above: Performed By: #### V FPA3 #### [facility] [address] [place] [address] Hematocrit (Bld) [Volume fraction] 39.0 % Normal 36.0 - 46.0 [facility] Comment on above: Performed By: #### V FPA3 #### [facility] [address] [place] [address] HGB,CALCULATED 13.3 g/dL Normal 12.0 - 16.0 [facility] Comment on above: Performed By: #### V FPA3 #### [facility] [address] [place] [address] Lactate [Moles/Vol] 1.2 mmol/L Normal 0.4 - 2.0 [facility] Comment on above: Performed By: #### V FPA3 #### [facility] [address] [place] [address] Oxygen (Bld) [Partial pressure] 56 mm[Hg] High 35 - 45 [facility] Comment on above: Performed By: #### V FPA3 #### [facility] [address] [place] [address] PATIENT TEMPERATURE 37.0 degrees C Normal [facility] Comment on above: Result Comment: NOTE : PATIENT RESULTS ARE NOT CORRECTED FOR TEMPERATURE. Performed By: #### V FPA3 #### [facility] [address] [place] [address] PCO2 42 mmHg Normal 41 - 51 [facility] Comment on above: Performed By: #### V FPA3 #### [facility] [address] [place] [address] pH (Bld) 7.44 [pH] High 7.33 - 7.43 [facility] Comment on above: Performed By: #### V FPA3 #### [facility] [address] [place] [address] Potassium [Moles/Vol] 4.1 mmol/L Normal 3.5 - 5.3 [facility] Comment on above: Performed By: #### V FPA3 #### [facility] [address] [place] [address] SO2 91 % High 45 - 75 [facility] Comment on above: Performed By: #### V FPA3 #### [facility] [address] [place] [address] Sodium [Moles/Vol] 133 mmol/L Low 136 - 145 [facility] Comment on above: Performed By: #### V FPA3 #### [facility] [address] [place] [address] CORONAVIRUS 2019, SCREEN ASY MPTOMATICon 09-17-2021 SARS-CoV-2 (COVID-19) RNA ADRIÁN+probe Ql (Unsp spec) Not detected Normal Not Detected [facility] Comment on above: Result Comment: . This test has received FDA Emergency Use Authorization (EUA) and has been verified by [facility] ([facility]). This test is only authorized for the duration of time that circumstances exist to justify the authorization of the emergency use of in vitro diagnostic tests for the detection of SARS-CoV-2 virus and/or diagnosis of COVID-19 infection under section 564(b)(1) of the Act, 21 U.S.C. 360bbb-3(b)(1), unless the authorization is terminated or revoked sooner. [facility] is certified under CLIA-88 as qualified to perform high complexity testing. Testing is performed in the [facility] located at [address] [place] [address]. SARS-CoV-2/Flu/RSV Multiplex Test: Fact sheet for providers: https://www.fda.gov/media/903479/download Fact sheet for patients: https://www.fda.gov/media/609998/download Performed By: #### C OVSC ####[id number] [place] [address] Lab Specimen Source Nasal, Nasopharyngeal Normal [facility] Comment on above: Performed By: #### C OVSC ####[id number] [place] [address] Coronavirus 2019 RNA by PCR, Screening Asymptomticon 09-17-2021 Coronavirus 2019 RNA by PCR, Screening Asymptomtic Not detected Normal See Below [facility] Work Phone: Comment on above: SOURCE: Nasal, Nasop haryngealReference Range: Not Detected.This test has received FDA Emergency Use Authorization (EUA) and has been verified by [facility] ([facility]). This test is only authorized for the duration of time that circumstances exist to justify the authorization of the emergency use of in vitro diagnostic tests for the detection of SARS-CoV-2 virus and/or diagnosis of COVID-19 infection under section 564(b)(1) of the Act, 21 U.S.C. 360bbb-3(b)(1), unless the authorization is terminated or revoked sooner. [facility] is certified under CLIA-88 as qualified to perform high complexity testing. Testing is performed in the [facility] located at [address] [place] [address].SARS-CoV-2/Flu/RSV Multiplex Test: Fact sheet for providers: https://www.fda.gov/media/636333/downloadFact sheet for patients: https://www.fda.gov/media/758821/download Covid 19 Resultson 2 SARS-CoV-2 (COVID-19) RNA ADRIÁN+probe Ql (Unsp spec) NEGATIVE COVID-19 Test Coronaviruses are common world-wide and are the cause of many common colds. SARS-COV2 is a new coronavirus that began circulating worldwide in 2019 so we are calling it COVID-19. It has been estimated that four out of five patients with COVID-19 will recover at home without the need for medical attention. Symptoms of COVID-19 may include cough, fever, shortness of breath, loss of taste or smell and other flu-like symptoms including chills, sore muscles, sore throat, and headache. Severe illness is more common in older people and people with other health problems such as high blood pressure, obesity, and immune system problems. If the test is positive, you have COVID-19. You will be contacted by the ordering physicians office and instructed to remain on home isolation, in accordance with CDC guidelines. You may also be contacted by the [facility] to see if any of your close contacts may have been exposed to the virus and need to quarantine. If the test is negative, you likely do not have COVID-19 at this time, but you still may have a different illness that can spread to other people (like Influenza, or the Flu) and could still be at risk for getting COVID-19. We recommend that you stay away from other people to limit the spread of illness until your symptoms are improving and you are fever-free for 24 hours without the use of fever lowering medications such as acetaminophen or ibuprofen. No test is 100% accurate so if you are still concerned you may have COVID-19, talk to your doctor about the need to continue to stay away from others. Medicines Unless your provider told you not to use the following: Acetaminophen (Tylenol and others) is generally safe. Anti-inflammatory medications, such as Ibuprofen (Advil or Motrin) or Naproxen (Aleve) can also be used. Ufae-uhb-bvmkwef cough and cold medicines can be used according to the instructions on the package. Some qvxr-cqg-iyoifxw medicines also contain acetaminophen. Make sure you are not taking more than your recommended dose. For those not hospitalized, there is no specific treatment available for this illness. Antibiotics do not treat Coronaviruses. Follow-Up Follow up with your doctor by scheduling a virtual visit or consider follow-up at one of our urgent care fever clinics. If you are having difficulty breathing, or are very weak and having difficulty standing, this is a medical emergency. Call 911 or have someone take you to the nearest emergency room immediately. If possible, wear a facemask. Additional guidance from the CDC for patients who tested POSITIVE for COVID-19 How to isolate: Isolate yourself in a specific room at home and limit your contact with others. Use a separate bathroom from other members of the household, when possible. Leave home only to get essential medical care. Do not go to work, school or public areas. Avoid using public transportation, ride-sharing, or taxis. Restrict contact with pets and other animals. If you must care for your pet or be around animals while you are sick, wash your hands before and after your interaction and wear a facemask. Make sure that shared spaces in the home have good airflow, such as by an air conditioner or an opened window, weather permitting. Personal Hygiene Procedures: Wear a face mask when in the same room as other people or pets. If a face mask interferes with your breathing, others should wear a mask when sharing space with you. Frequent hand-washing: wash your hands with soap and water for at least 20 seconds. If soap and water are not available, use alcohol-based hand slab stripper. Avoid touching your eyes, nose, and mouth with unwashed hands. Household Hygiene Procedures: Avoid sharing personal household items such as dishes, glassware, cups, eating utensils, towels or bedding with other people or pets in your home. After use, these items should be washed with soap and hot water. Disinfect all high-touch surfaces every day with antibacterial cleaning solutions such as Lysol wipes, bleach, cleansers, etc. High-touch surfaces include tabletops, doorknobs, bathroom fixtures, toilets, phones, keyboards, tablets and bedside tables. Immediately clean any surfaces that may have blood, poop or body fluids on them, using antibacterial cleaning solutions such as Lysol wipes, bleach, cleansers, etc. If clothing or bedding come into contact with blood, poop or body fluids, they should be washed immediately. Follow the directions on the laundry detergent and clothing labels but hot water is recommended when possible. Stopping home isolation precautions: If possible, consult your doctor before stopping home isolation precautions. According to the CDC, you can discontinue home isolation precautions when you have met both of these criteria: Your fever and respiratory symptoms have been gone for 24 mariella (more content not included)... Normal [facility] Daily Progress Note - Psychi atryon 09-17-2021 Daily Progress Note - Psychiatry Subjective Data: MORALES LEE is a 46 year old Female who is Hospital Day # 3. Patient found lying in bed dressed in her hospital gown, with tray of food at bedside. Reports that she is feeling okay, anticipating her surgery tomorrow and wanting it over with. Endorses nausea and yawning, but denies vomiting and any other new complaints at this time. 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 She feels self-conscious about the appearance of her teeth, as people have associated this with illicit drug use in the past (which she denies ever using). Patient also expresses some disappointment at how much she believes staff have been fixating on her suboxone use, given that she has been on suboxone for 6 years and feels like it shouldn't be this big of a deal. Regarding her surgery tomorrow, patient is eager to review the plan with her anesthesiologist. Overall she states she has always been pleased with her care here, but she is nervous about post-op pain. She recalls her last surgery in December 2020, in which she was miserable due to pain but found it well-controlled on Dilaudid CORRESPONDENT and 5/10 mg oxycodone. Pt is interested in speaking to her anesthesia team further about her intra- and stuart-op pain management. During the interview, patient grows tearful as she recalls her history of opioid use and her grief surrounding the deaths of her mother, grandmother, and aunt. She recalls that her mother shortly after she first was prescribed Vicodin, and her pain escalated at that time, as did her use of pain medication. She felt that the cause of her pain was not being addressed, while she was receiving opioids like candy from her provider, which affected her mental state and prevented her from fully grieving her mother until she began her recovery process. She states her relationship with her grandmother (who raised her as a child) was also negatively affected, and she felt a tremendous amount of guilt when her grandmother passed, and when her aunt passed a few months afterward. Notably, her mother's birthday and her grandmother's date of are both in early September. Patient's is now her primary source of support. She has not been able to see him since her admission, as he has been working (cardoza at a [employer]), but she looks forward to his arrival tomorrow morning and his support during/after surgery. She also derives comfort from her spirituality and still considers herself blessed. Patient notes that her old PCP moved and she is satisfied with her new PCP, who has been managing her Cymbalta; she has a different provider and uses a different pharmacy for her suboxone. Objective: Objective Information: T PRBPSpO2 [id number]/9095% Date/Time09/17 4: 10: 10: 10: 10:00 Range(35.7C - 36.6C ) (81 - 89 ) (10 - 23 ) (73 - 117 )/ (43 - 90 ) (91% - 96% ) As of 17-Sep-2021 08:00:00, patient is on 3 L/min of oxygen via nasal cannula. Pain reported at 09/17 8:00: 8 = Severe ---- Intake and Output ----- Mn/Dy/Year TimeIntakeOutchristus st. [facility] Sep 17, 2021 6:00 [id number] Sep 16, 2021 2:00 [id number] The Intake and Output Totals for the last 24 hours are: IntakeOutputNet [id number] Mental Status Exam: General: Awake, lying in bed, appropriately groomed and dressed in hospital gown. Appearance: Female, appears older than stated age. Attitude: Calm, communicative, forthright. Behavior: Appropriate eye contact, intermittently tearful and yawning. Motor Activity: No psychomotor agitation or retardation noted. Does not appear restless. Gait not assessed. Speech: Regular rate, rhythm, volume and tone, spontaneous, fluent. Mood: Okay Affect: Full range, somewhat labile. Thought Process: Generally organized, linear, goal directed, however becomes tangential when describing her history. Associations are logical. Thought Content: Does not endorse suicidal or homicidal ideation, no delusions elicited. Thought Perception: Does not endorse auditory or visual hallucinations, does not appear to be responding to hallucinatory stimuli. Cognition: Alert, oriented x3. No deficits noted. Adequate fund of knowledge. No deficit in recent and remote memory. No deficits in attention, concentration or language. Insight: Fair Judgment: Fair. Medications: Continuous Medications ----- No continuous medications are active Scheduled Medications ----- 1. Acetaminophen: 650 mg Oral Every 6 Hours 2. Calcium 500 mg - Vitamin D 200 Units: 1 tablet(s) Oral 4 Times a Day 3. cefTRIAXone 1 gram/ Dextrose 5% IVPB Premixed Soln 50 mL: 50 mL IntraVenous Piggyback Every 24 Hours 4. Docusate: 100 mg Oral 2 Times a Day 5. Gabapentin: 800 mg Oral 3 Times a Da (more content not included)... Normal [facility] Daily Progress Note-Neurosur jinny 09-17-2021 Daily Progress Note-Neurosurgery Service: Neurosurgery Subjective Data: MORALES LEE is a 46 year old Female who is Hospital Day # 3. Objective Data: Objective Information: T PRBPSpO2 [id number]/4393% Date/Time09/16 18: 18:5409/16 18:5409/16 18: 18:54 Range(35.7C - 36.4C ) (81 - 91 ) (15 - 24 ) (87 - 118 )/ (43 - 84 ) (91% - 96% ) As of 16-Sep-2021 18:54:00, patient is on 2 L/min of oxygen via nasal cannula. Pain reported at 09/16 16:34: 10 = Severe ---- Intake and Output ----- Mn[facility]Dy/[facility]Out[facility] Sep 16, 2021 2:00 [id number] Physical Exam by System: Neurological: A&Ox3 RUE D5, B5, T5, HG5, IO5 LUE D4+, B4+, T4+, HG4+, IO5 RLE HF 4+, KE4+, PF5, DF5 (pain limited) LLE HF 4-, KE4-, PF4, DF5 Recent Lab Results: Results: CBC: 09/16/2021 07:54 \ Hgb / \ 14.1 / WBC Plt 8.5 278 / Hct \ / 42.7 \ RBC: 4.70 MCV: 91 Neutrophil %: 53.3 RFP: 09/16/2021 07:54 NA+ Cl- BUN / 140 101 10 / ----- Glucose 88 K+ HCO3- Creat \ 3.7 29 0.63 \ Calcium : 8.9Anion Gap : 14 Albumin : 3.5 Phos : 3.4 Coagulation: 09/16/2021 07:54 PT / 11.6 / -------< INR < 1.0 PTT\ 31 \ Assessment and Plan: Code Status: Code StatusFull Code Assessment: Pt is a 46 yo F w/ h/o HTN, C6-7 ACDFF, T1 comp fx s/p T11-12 lami c/b worseing kyphosis s/p 12/2020 L1 transpedic decompression/SPOs/T5-L4 fusion, b/l ulnar neuorpathies p/w thoracic kyphosis. Plan: OR 09/19 MRI L spine w/o medicine recs- Ok to proceed chronic pain recs- intra-op ketamine, meloxicam post-op, Suboxone as OP COWS psych recs SCD's, SQH Attestation: Note Completion: I am a: Resident/Fellow Attending AttestationI saw and evaluated the patient. I personally obtained the schofield and critical portions of the history and physical exam or was physically present for schofield and critical portions performed by the resident/fellow. I reviewed the resident/fellows documentation and discussed the patient with the resident/fellow. I agree with the resident/fellows medical decision making as documented in the note. I personally evaluated the patient [id number] Comments/ Additional Findings I again explained to the patient the necessity of surgery which is primarily to stabilize the spine to the presence of instability below the prior fusion due to the presence of a Type B2 AO type injury secondary to the fall. Strongly recommended appropriate weight reduction and smoking cessation. I have explained the surgical procedure in detail with expected duration and extent of recovery along risks of surgery that include, but is not limited to bleeding, infection, blood vessel injury or damage, loss of sensation, loss of bladder, bowel or sexual function, nerve injury/damage resulting in weakness/paralysis, malunion, nonunion, CSF leak, brachial plexus injury, peripheral vision blindness, injury to the abdominal contents, failure of implants/fusion, failure to relieve symptoms, recurrent disease, adjacent segment disease, need to reoperate for any reason and general anesthesia reaction such as stroke, coma, heart attack, delirium, confusion, as well as worsening of preexisted medical conditions and any other unforeseen event related or unrelated to the surgery. Electronic Signatures: Fidel Maciel (Resident)) (Signed 17-Sep-2021 02:05) Authored: Service, Subjective Data, Objective Data, Assessment and Plan, Note Completion Lex Frederick) (Signed 19-Sep-2021 10:16) Authored: Note Completion Co-Signer: Service, Subjective Data, Objective Data, Assessment and Plan, Note Completion Last Updated: 19-Sep-2021 10:16 by Lex Frederick) Normal [facility] HCG,URINEon 09-17-2021 Beta HCG ( test) Ql (U) Negative Normal Negative [facility] Comment on above: Performed By: #### A FPA3 #### [facility] [address] [place] [address] Laboratory - Blood bankon ABO group Nom (Bld) O [facility] Work Phone: Blood group antibody investigation (P/RBC) [Interp] Anti-E [facility] Work Phone: Blood group antibody screen Ql Positive [facility] Work Phone: Rh immune globulin screen (Bld) [Interp] Positive [facility] Work Phone: No Panel Informationon 09-17 ORDER RECD [facility] Work Phone: Path Review Immunohematology on 09-17-2021 Path Review Immunohematology LETA [facility] Work Phone: Comment on above: By her/his signature above, the Pathologist listed as making the final interpretation certifies that she/he has personally reviewed this case. ANTIBODY DETECTION SCREEN IS POSITIVE.ANTIBODY IDENTIFICATION PANEL WAS PERFORMED.THE AUTOCONTROL IS NEGATIVE.ANTI-E(BIG E)IS IDENTIFIED.THE PATIENT'S RBC PHENOTYPE IS E(BIG E)-ANTIGEN NEGATIVE.THESE FINDINGS ARE CONSISTENT WITH A NEWLY IDENTIFIEDALLOANTIBODY ANTI-E.ALL OTHER COMMON CLINICALLY SIGNIFICANTALLOANTIBODIES HAVE BEEN RULED OUT.FULL CROSSMATCHED E-ANTIGEN NEGATIVE DONOR RBC UNITSSHOULD BE SELECTED FOR TRANSFUSION FOR THIS PATIENT. REQUEST-LEUKOREDUCED RED ANJU LSon 09-17-2021 REQUEST-LEUKOREDUCED RED CELLS ORDER RECD Normal [facility] Comment on above: Performed By: #### O CUPROUS CHLORIDE HELPER #### [facility] [address] [place] [address] TYPE + SCREENon 09-17-2021 ABO TYPE O Normal [facility] Comment on above: Performed By: #### T +S #### [facility] [address] [place] [address] RH TYPE Positive Normal [facility] Comment on above: Performed By: #### T +S #### [facility] [address] [place] [address] Urine Teston 09-17 HCG ( test) Ql (U) Negative Negative [facility] Work Phone: BNPon 09-16-2021 Natriuretic peptide B (Bld) [Mass/Vol] 37 pg/mL Normal 0 - 99 [facility] Comment on above: Result Comment: . <1 00 pg/mL - Heart failure unlikely 100-299 pg/mL - Intermediate probability of acute heart . failure exacerbation. Correlate with clinical . context and patient history. >=300 pg/mL - Heart Failure likely. Correlate with clinical . context and patient history. Biotin interference may cause falsely decreased results. Patients taking a Biotin dose of up to 5 mg/day should refrain from taking Biotin for 24 hours before sample collection. Providers may contact their local laboratory for further information. Performed By: #### A FPA3 #### [facility] [address] [place] [address] CBC AND DIFFERENTIALon 09-16 % AUTOMATED IMMATURE GRAN 0.5 % Normal 0.0 - 0.9 [facility] Comment on above: Result Comment: Jaleesa ture Granulocyte Count (IG) includes promyelocytes, myelocytes and metamyelocytes but does not include bands. Percent differential counts (%) should be interpreted in the context of the absolute cell counts (cells/L). Performed By: #### C BCDF ####[id number] [place] [address] Basophils (Bld) [#/Vol] 0.04 10*3/uL Normal 0.00 - 0.10 [facility] Comment on above: Performed By: #### C BCDF ####[id number] [place] [address] Basophils/100 WBC (Bld) 0.5 % Normal 0.0 - 2.0 [facility] Comment on above: Performed By: #### C BCDF ####[id number] [place] [address] Eosinophils (Bld) [#/Vol] 0.26 10*3/uL Normal 0.00 - 0.70 [facility] Comment on above: Performed By: #### C BCDF ####[id number] [place] [address] Eosinophils/100 WBC (Bld) 3.0 % Normal 0.0 - 6.0 [facility] Comment on above: Performed By: #### C BCDF ####[id number] [place] [address] Erythrocyte distribution width (RBC) [Ratio] 13.0 % Normal 11.5 - 14.5 [facility] Comment on above: Performed By: #### C BCDF ####[id number] [place] [address] Hematocrit (Bld) [Volume fraction] 42.7 % Normal 36.0 - 46.0 [facility] Comment on above: Performed By: #### C BCDF ####[id number] [place] [address] Hemoglobin (Bld) [Mass/Vol] 14.1 g/dL Normal 12.0 - 16.0 [facility] Comment on above: Performed By: #### C BCDF ####[id number] [place] [address] Lymphocytes (Bld) [#/Vol] 3.17 10*3/uL Normal 1.20 - 4.80 [facility] Comment on above: Performed By: #### C BCDF ####[id number] [place] [address] Lymphocytes/100 WBC (Bld) 37.2 % Normal 13.0 - 44.0 [facility] Comment on above: Performed By: #### C BCDF ####[id number] [place] [address] MCHC (RBC) [Mass/Vol] 33.0 g/dL Normal 32.0 - 36.0 [facility] Comment on above: Performed By: #### C BCDF ####[id number] [place] [address] MCV (RBC) [Entitic vol] 91 fL Normal 80 - 100 [facility] Comment on above: Performed By: #### C BCDF ####[id number] [place] [address] Monocytes (Bld) [#/Vol] 0.47 10*3/uL Normal 0.10 - 1.00 [facility] Comment on above: Performed By: #### C BCDF ####[id number] [place] [address] Monocytes/100 WBC (Bld) 5.5 % Normal 2.0 - 10.0 [facility] Comment on above: Performed By: #### C BCDF ####[id number] [place] [address] Neutrophils (Bld) [#/Vol] 4.55 10*3/uL Normal 1.20 - 7.70 [facility] Comment on above: Performed By: #### C BCDF ####[id number] [place] [address] Neutrophils/100 WBC (Bld) 53.3 % Normal 40.0 - 80.0 [facility] Comment on above: Performed By: #### C BCDF ####[id number] [place] [address] NUCLEATED RBC 0.0 /100 WBC Normal 0.0-0.0 [facility] Comment on above: Performed By: #### C BCDF ####[id number] [place] [address] Platelets (Bld) [#/Vol] 278 10*3/uL Normal 150 - 450 [facility] Comment on above: Performed By: #### C BCDF ####[id number] [place] [address] RBC 4.70 x10E12/L Normal 4.00 - 5.20 [facility] Comment on above: Performed By: #### C BCDF ####[id number] [place] [address] WBC (Bld) [#/Vol] 8.5 10*3/uL Normal 4.4 - 11.3 [facility] Comment on above: Performed By: #### C BCDF ####[id number] [place] [address] COAGULATION SCREENon 022 aPTT Coag (Bld) [Time] 31 s Normal 26 - 39 [facility] Comment on above: Result Comment: Note new reference range as of 08/04/2021 at 10:00am. Performed By: #### V FPA3 #### [facility] [id number] [place] [address] PT Coag (PPP) [Time] 11.6 s Normal 9.8 - 13.4 [facility] Comment on above: Result Comment: Note new reference range as of 08/04/2021 at 10:00am. Performed By: #### V FPA3 #### [facility] [address] [place] [address] PT, INR 1.0 Normal 0.9 - 1.1 [facility] Comment on above: Performed By: #### V FPA3 #### [facility] [address] [place] [address] Clinical Event Note-ADMISSIO N CLARIFICATIONon 09-16-2021 Clinical Event Note-ADMISSION CLARIFICATION Clinical Event: Clinical Event Note: TopicADMISSION CLARIFICATION Details 47 yo female with Hx of depression, anxiety, chronic pain, opiate use disorder currently on suboxone (prescription), s/p C6-7 ACDF, T1 comp fracture s/p T11-12 lami c/b worseneing kyphosis s/p 12/2020 L1 transpedic decompression/SPOs/T5-L4 fusion who presented on 09/14 for scheduled surgery on 09/18 for worsening thoracic kyphosis. Needs medical clearance, Pain consult for stuart-operative and postop pain, Suboxone management and monitoring for withdrawal. Provider/Team Contact Info-Pager [phone] Electronic Signatures: Sharmin Guaman (ASSISTANT PROGRAM MANAGER-[employer]OOM [employer]) (Signed 16-Sep-2021 12:07) Authored: Clinical Event Note Last Updated: 16-Sep-2021 12:07 by Sharmin Guaman (ASSISTANT PROGRAM MANAGER-BROOM MAN) Normal [facility] Complete Blood Count + Diffe rentialon 09-16-2021 Basophils/100 WBC (Bld) 0.5 % 0.0 - 2.0 [facility] Work Phone: Erythrocyte distribution width (RBC) [Ratio] 13.0 % See Below [facility] Work Phone: Comment on above: Reference Range: 11. 5 - 14.5 Hematocrit (Bld) [Volume fraction] 42.7 % See Below [facility] Work Phone: Comment on above: Reference Range: 36. 0 - 46.0 Hemoglobin (Bld) [Mass/Vol] 14.1 g/dL See Below [facility] Work Phone: Comment on above: Reference Range: 12. 0 - 16.0 Lymphocytes/100 WBC (Bld) 37.2 % See Below [facility] Work Phone: Comment on above: Reference Range: 13. 0 - 44.0 MCHC (RBC) [Mass/Vol] 33.0 g/dL See Below [facility] Work Phone: Comment on above: Reference Range: 32. 0 - 36.0 MCV (RBC) [Entitic vol] 91 fL 80 - 100 [facility] Work Phone: Monocytes/100 WBC (Bld) 5.5 % 2.0 - 10.0 [facility] Work Phone: Neutrophils/100 WBC (Bld) 53.3 % See Below [facility] Work Phone: Comment on above: Reference Range: 40. 0 - 80.0 Platelets (Bld) [#/Vol] 278 10*3/uL 150 - 450 [facility] Work Phone: RBC (Bld) [#/Vol] 4.70 {x10E12/L} See Below [facility] Work Phone: Comment on above: Reference Range: 4.0 0 - 5.20 WBC (Bld) [#/Vol] 8.5 10*3/uL 4.4 - 11.3 [facility] Work Phone: Complete Blood Count + Differential 0.04 {x10E9/L} See Below [facility] Work Phone: Comment on above: Reference Range: 0.0 0 - 0.10 Complete Blood Count + Differential 0.26 {x10E9/L} See Below [facility] Work Phone: Comment on above: Reference Range: 0.0 0 - 0.70 Complete Blood Count + Differential 0.47 {x10E9/L} See Below [facility] Work Phone: Comment on above: Reference Range: 0.1 0 - 1.00 Complete Blood Count + Differential 3.17 {x10E9/L} See Below [facility] Work Phone: Comment on above: Reference Range: 1.2 0 - 4.80 Complete Blood Count + Differential 4.55 {x10E9/L} See Below [facility] Work Phone: Comment on above: Reference Range: 1.2 0 - 7.70 Complete Blood Count + Differential 3.0 % 0.0 - 6.0 [facility] Work Phone: Complete Blood Count + Differential 0.5 % 0.0 - 0.9 [facility] Work Phone: Comment on above: Immature Granulocyte Count (IG) includes promyelocytes, myelocytes and metamyelocytes but does not include bands. Percent differential counts (%) should be interpreted in the context of the absolute cell counts (cells/L). Complete Blood Count + Differential 0.0 {/100_WBC} 0.0-0.0 [facility] Work Phone: Consult-Painon 09-16-2021 Consult-Pain Service: Service: Pain Consult: Consult requested by (Attending Name): Dr. Frederick Reason: Perioperative Pain Management History of Present Illness: Admission Reason: Spine surgery HPI: Morales Lee is a 46-year-old female with a h/o C6-7 ACDF, T1 comp fx s/p T11-12 lami c/b worsening kyphosis s/p 12/2020 L1 transpedic decompression/SPOs/T5-L4 fusion, b/l ulnar neuropathies with chronic pain on Suboxone now with significant kyphotic deformity at the lumbosacral junction causing significant pain. She reports that she had a ground-level fall 2 to 3 months after surgery and has been experiencing left-sided back pain that radiates to the thigh foot. She is scheduled to undergo surgery on Tuesday and reports taking 8 mg of Suboxone twice daily. In addition to their Suboxone for chronic pain she also takes Flexeril 10 mg 3 times daily and gabapentin 800 3 times daily for the moderate leaf of her pain. We have been consulted for perioperative management of the patient's Suboxone prior to surgery as well as a perioperative pain management plan. Review Family/Social History and ROS: Social History: Alcohol Use: denies(1) Drug Use: opioid pain medications (1) Drug 2 Use: history of abuse marijuana (1) Constitutional: NEGATIVE: Fever Eyes: NEGATIVE: Blurry Vision ENMT: NEGATIVE: Nasal Discharge Respiratory: NEGATIVE: Dry Cough Cardiac: NEGATIVE: Chest Pain Gastrointestinal: NEGATIVE: Nausea Genitourinary: NEGATIVE: Discharge Musculoskeletal: POSITIVE: Pain, Stiffness; NEGATIVE: Weakness Neurological: NEGATIVE: Dizziness Skin: NEGATIVE: Mass Allergies: codeine: Unknown penicillin: Unknown Seroquel: Unknown Objective: Physical Exam by System: Constitutional: Pleasant, resting comfortably Eyes: EOMI Head/Neck: Normocephalic Respiratory/Thorax: No increased work of breathing Cardiovascular: NAD Gastrointestinal: nondistended, no guarding Musculoskeletal: Moving all extremities spontaneously TTP thoracic and lumbar midline, and lumbar paraspinal Negative straight leg bilaterally Extremities: No peripheral edema Neurological: Awake. Alert. Oriented Psychological: Appropriate mood and behavior Skin: Warm and dry Assessment: Morales Lee is a 46-year-old female with a h/o C6-7 ACDF, T1 comp fx s/p T11-12 lami c/b worsening kyphosis s/p 12/2020 L1 transpedic decompression/SPOs/T5-L4 fusion, b/l ulnar neuropathies chronic pain on suboxone, now with significant kyphotic deformity at the lumbosacral junction causing significant pain. She is scheduled to undergo surgery on Tuesday and we have been consulted for perioperative management of the patient's Suboxone prior to surgery as well as a perioperative pain management plan. She reports taking 8 mg of Suboxone twice daily, though has not been taking during her inpatient stay. In addition to their Suboxone for chronic pain she also takes Flexeril 10 mg 3 times daily and gabapentin 800 3 times daily for the moderate relief of her pain. Recommendations: - Change acetaminophen from PRN to 650mg q6h - Discontinue cyclobenzaprine - Start tizanidine 2mg TID - Continue oxycodone and gabapentin as currently prescribed - Communicate with anesthesia for day of surgery ketamine infusion itraoperatively - Start Celebrex 200mg BID postoperatively for no more than 10-14 days, switch to 100mg BID either on discharge or after 10-14 days. - Hold suboxone and coordinate with outpatient prescriber of suboxone to reinitiate therapy Attestation: Note Completion: I am a: Resident/Fellow Attending AttestationI saw and evaluated the patient. I personally obtained the schofield and critical portions of the history and physical exam or was physically present for schofield and critical portions performed by the resident/fellow. I reviewed the resident/fellows documentation and discussed the patient with the resident/fellow. I agree with the resident/fellows medical decision making as documented in the note. I personally evaluated the patient [id number] Electronic Signatures: Chidi Lamar (Fellow)) (Signed 16-Sep-2021 08:54) Authored: History of Present Illness, Review Family/Social History and ROS, Allergies Aaron Fernandes (Resident)) (Signed 16-Sep-2021 15:24) Authored: Service, History of Present Illness, Review Family/Social History and ROS, Objective, Assessment/Recommendations, Note Completion Chidi Dobbs () (Signed 16-Sep-2021 18:21) Authored: Assessment/Recommendations, Note Completion Co-Signer: Assessment/Recommendations, Note Completion Last Updated: 16-Sep-2021 18:21 by Chidi Dobbs () References: 1. Data Referenced From Consult - Psychiatry 15-Sep-2021 20:42 Normal [facility] Consult-Perioperative Medici neon 09-16-2021 Consult-Perioperativ e Medicine Service: Service: Perioperative Medicine Consult: Consult requested by (Attending Name): Lex Frederick Reason: preoperative risk stratification History of Present Illness: Admission Reason: pre-admit for planned neurosurgical intervention HPI: MORALES LEE is a 46 year old Female h/o HTN, C6-7 ACDF, T1 comp fx s/p T11-12 lami c/b worseneing kyphosis s/p L1 transpedic decompression/SPOs/T5-L4 fusion. Other history includes b/l ulnar neuorpathies & chronic pain on suboxone p/w thoracic kyphosis. Reports a ground level fall 2-3 month after her surgery. She has been experiencing left sided radicular pain radiating from her back over her anterolateral thigh to the bottom of her foot. She reports these symptoms have gradually worsened since the fall. She also has weakness on her left leg. She was seen by neurology in the outpatient setting who recommended she be admitted to the hospital for surgical evaluation. Perioperative medicine team was consulted for pre-op optimization/risk stratification. Full spine X-Ray (09/08/20): There is marked angulation with focal kyphosis and distraction at L4-L5 disc space concerning for instability PMH: -HTN -Chronic back pain s/p T5-L4 fusion and C6-C7 ACDF -Anxiety -Depression -Previous substance use disorder (on suboxone therapy) PSH: as above Allergies: reviewed and as listed in electronic health record Social history: + tobacco & marijuana, denies alcohol use, history of opiate use on Suboxone Family history: Not pertinent to current presentation Home Medications: Acetaminophen 325 mg as needed Ambien 12.5 mg ER Cyclobenzaprine 10 mg Furosemide 20 mg (takes 1-2 pills per day depending on swelling states she takes 2 pills 3-4x per week) Gabapentin 800 mg 3x daily Lisinopril 20 mg Suboxone 8mg-2mg sublingual Valium 5 mg prn Review Family/Social History and ROS: Social History: Alcohol Use: denies(1) Drug Use: opioid pain medications (1) Drug 2 Use: history of abuse marijuana (1) Constitutional: NEGATIVE: Fever, Chills, Weight Loss Eyes: NEGATIVE: Blurry Vision, Diploplia, Vision Loss/ Change ENMT: NEGATIVE: Nasal Congestion, Ear Pain, Throat Pain Respiratory: NEGATIVE: Dry Cough, Wheezing, Shortness of Breath Cardiac: POSITIVE: Palpitations; NEGATIVE: Chest Pain, Dyspnea on Exertion; COMMENTS: only with anxiety Gastrointestinal: NEGATIVE: Nausea, Vomiting, Abdominal Pain; COMMENTS: +fecal incontinence Genitourinary: POSITIVE: Frequency; NEGATIVE: Flank Pain, Hematuria; COMMENTS: + urinary incontinence Musculoskeletal: POSITIVE: Decreased ROM, Pain, Swelling, Stiffness, Weakness Neurological: NEGATIVE: Confusion, Headache, Seizures Psychiatric: POSITIVE: Anxiety; NEGATIVE: Sleep Changes, Suicidal Ideas Skin: NEGATIVE: Mass, Pruritus, Rash Endocrine: NEGATIVE: Sweat, Polyuria, Thirst Hematologic/Lymph: NEGATIVE: Anemia, Bruising, Petechiae Allergies: Seroquel: Unknown codeine: Unknown penicillin: Unknown Objective: Objective Information: T PRBPSpO2 [id number]/8491% Date/Time09/16 11:13112 12:4909/16 12:4909/16 12:4909/16 12:49 Range(36.3C - 36.4C ) (81 - 91 ) (15 - 24 ) (93 - 118 )/ (66 - 84 ) (91% - 96% ) As of 16-Sep-2021 12:49:00, patient is on 2 L/min of oxygen via nasal cannula. Pain reported at 09/16 11:26: 10 = Severe Physical Exam by System: Constitutional: No acute distress. Cooperative on exam. Overweight. Eyes: EOMI, clear sclera ENMT: dry mucous membranes; poor dentition Head/Neck: Neck supple, no apparent injury, thyroid without mass or tenderness, No JVD, trachea midline, no bruits Respiratory/Thorax: CTA b/l in upper lung ma. Diminished breath sounds in lower lung ma (R>L) Cardiovascular: RRR; no murmurs, rubs, or gallops. Normal S1 & S2. Gastrointestinal: Obese abdomen; nondistended; nontender to palpation x4 quadrants. + bowel sounds Musculoskeletal: Thoracic kyphosis. Decreased ROM of the thoracic and lumbar spine. 4/5 motor strength of the LLE (5/5 in all other extremities). Extremities: 1-2+ LE edema. Peripheral pulses intact and 2+ Neurological: No focal deficits. A&Ox3. Lymphatic: No significant lymphadenopathy Psychological: Anxious Skin: Warm and dry, no lesions, no rashes Medications: Medications: Continuous Medications ----- No continuous medications are active Scheduled Medications ----- 1. Calcium 500 mg - Vitamin D 200 Units: 1 tablet(s) Oral 4 Times a Day 2. Cyclobenzaprine: 10 mg Oral 3 Times a Day 3. Docusate: 100 mg Oral 2 Times a Day 4. Gabapentin: 800 mg Oral 3 Times a Day 5. Heparin SubCutaneous: 5000 unit(s) SubCutaneous Every 8 Hours 6. Lisinopril: 20 mg Oral Daily 7. Nicotine 14 mg/ 24 hour TransDermal: 1 patch TransDermal Every 24 Hours 8. Nitrofurantoin Extended Release: 100 mg (more content not included)... Normal [facility] Cult, Urineon 09-16-2021 Bacteria identified Cx Nom (U) Abnormal [facility] Work Phone: Daily Progress Note-Nuha stearns 09-16-2021 Daily Progress Note-Neurosurgery Service: Neurosurgery Subjective Data: MORALES LEE is a 46 year old Female who is Hospital Day # 3. Objective Data: Objective Information: T PRBPSpO2 [id number]/6693% Date/Time09/16 1: 4: 4: 4: 4:00 Range(36.3C - 36.3C ) (82 - 91 ) (15 - 24 ) (93 - 102 )/ (66 - 68 ) (93% - 93% ) Pain reported at 09/16 2:38: 10 = Severe Physical Exam by System: Neurological: A&Ox3 RUE D5, B5, T5, HG5, IO5 LUE D4+, B4+, T4+, HG4+, IO5 RLE HF 4+, KE4+, PF5, DF5 (pain limited) LLE HF 4-, KE4-, PF4, DF5 Assessment and Plan: Code Status: Code StatusFull Code Assessment: Pt is a 46 yo F w/ h/o HTN, C6-7 ACDFF, T1 comp fx s/p T11-12 lami c/b worseing kyphosis s/p 12/2020 L1 transpedic decompression/SPOs/T5-L4 fusion, b/l ulnar neuorpathies p/w thoracic kyphosis. Plan: OR 09/19 MRI L spine w/o medicine consult in AM chronic pain consult (suboxone) in AM COWS psych recs SCD's, [facility] Attestation: Note Completion: I am a: Resident/Fellow Attending AttestationI saw and evaluated the patient. I personally obtained the schofield and critical portions of the history and physical exam or was physically present for schofield and critical portions performed by the resident/fellow. I reviewed the resident/fellows documentation and discussed the patient with the resident/fellow. I agree with the resident/fellows medical decision making as documented in the note. I personally evaluated the patient [id number] Comments/ Additional Findings TO OR this Tuesday if medically optimized for T12 - Pelvis fusion and Instrumentation. Pain consult for management regrading Suboxone and pain control in the perioperative period. US LE MRI of the lumbar spine., Lex K Kasliwal, MD, [facility], FAANS Director - Minimally Invasive Spine Surgery [facility] [employer] of Neurological Surgery [facility] [employer] [place], [place] Electronic Signatures: Fidel Maciel (Resident)) (Signed 16-Sep-2021 04:33) Authored: Service, Subjective Data, Objective Data, Assessment and Plan, Note Completion Lex Frederick) (Signed 16-Sep-2021 10:22) Authored: Note Completion Co-Signer: Service, Subjective Data, Objective Data, Assessment and Plan, Note Completion Last Updated: 16-Sep-2021 10:22 by Lex Frederick) Normal [facility] EMR ADDONon 09-16-2021 ADDON CONFIRMATION REQUEST REC'D Normal [facility] Comment on above: Performed By: #### E MRAD ####NO LOCATION NEEDED Laboratory - Coagulationon 0 09-16-2021 aPTT Coag (PPP) [Time] 31 s 26 - 39 [facility] Work Phone: Comment on above: Note new reference r ishmael as of 08/04/2021 at 10:00am. INR Coag (PPP) [Relative time] 1.0 {INR} 0.9 - 1.1 [facility] Work Phone: PT Coag (PPP) [Time] 11.6 s 9.8 - 13.4 [facility] Work Phone: Comment on above: Note new reference r ishmael as of 08/04/2021 at 10:00am. No Panel Informationon 09-16 37 pg/mL 0 - 99 [facility] Work Phone: Comment on above: . <100 pg/mL - Heart failure -470 pg/mL - Intermediate probability of acute heart. failure exacerbation. Correlate with clinical. context and patient history. >=300 pg/mL - Heart Failure likely. Correlate with clinical. context and patient history. Biotin interference may cause falsely decreased results. Patients taking a Biotin dose of up to 5 mg/day should refrain from taking Biotin for 24 hours before sample collection. Providers may contact their local laboratory for further information. RENAL FUNCTION PANELon 09-16 Albumin [Mass/Vol] 3.5 g/dL Normal 3.4 - 5.0 [facility] Comment on above: Performed By: #### R ENAL #### [facility] [address] [place] [address] Anion gap [Moles/Vol] 14 mmol/L Normal 10 - 20 [facility] Comment on above: Performed By: #### R ENAL #### [facility] [address] [place] [address] Calcium [Mass/Vol] 8.9 mg/dL Normal 8.6 - 10.6 [facility] Comment on above: Performed By: #### R ENAL #### [facility] [address] [place] [address] Chloride [Moles/Vol] 101 mmol/L Normal 98 - 107 [facility] Comment on above: Performed By: #### R ENAL #### [facility] [address] [place] [address] Creatinine [Mass/Vol] 0.63 mg/dL Normal 0.50 - 1.05 [facility] Comment on above: Performed By: #### R ENAL #### [facility] [address] [place] [address] eGFR FEMALE >90 Normal >90 [facility] Comment on above: Result Comment: CALC ULATIONS OF ESTIMATED GFR ARE PERFORMED USING THE 2020 CKD-EPI STUDY REFIT EQUATION WITHOUT THE RACE VARIABLE FOR THE IDMS-TRACEABLE CREATININE METHODS. https://jasn.asnjournals.org/content//ASN.9476186 988 Performed By: #### R ENAL #### [facility] [address] [place] [address] Glucose [Mass/Vol] 88 mg/dL Normal 74 - 99 [facility] Comment on above: Performed By: #### R ENAL #### [facility] [address] [place] [address] HCO3 (Bld) [Moles/Vol] 29 mmol/L Normal 21 - 32 [facility] Comment on above: Performed By: #### R ENAL #### [facility] [address] [place] [address] Phosphate [Mass/Vol] 3.4 mg/dL Normal 2.5 - 4.9 [facility] Comment on above: Result Comment: The performance characteristics of phosphorus testing in heparinized plasma have been validated by the individual laboratory site where testing is performed. Testing on heparinized plasma is not approved by the FDA; however, such approval is not necessary. Performed By: #### R ENAL #### [facility] [address] [place] [address] Potassium [Moles/Vol] 3.7 mmol/L Normal 3.5 - 5.3 [facility] Comment on above: Performed By: #### R ENAL #### [facility] [address] [place] [address] Sodium [Moles/Vol] 140 mmol/L Normal 136 - 145 [facility] Comment on above: Performed By: #### R ENAL #### [facility] [address] [place] [address] Urea nitrogen [Mass/Vol] 10 mg/dL Normal 6 - 23 [facility] Comment on above: Performed By: #### R ENAL #### [facility] [address] [place] [address] Renal Function Panelon 09-16 Albumin BCP dye [Mass/Vol] 3.5 g/dL 3.4 - 5.0 [facility] Work Phone: Anion gap [Moles/Vol] 14 mmol/L 10 - 20 [facility] Work Phone: Calcium [Mass/Vol] 8.9 mg/dL 8.6 - 10.6 [facility] Work Phone: Chloride [Moles/Vol] 101 mmol/L 98 - 107 [facility] Work Phone: CO2 [Moles/Vol] 29 mmol/L 21 - 32 [facility] Work Phone: Creatinine [Mass/Vol] 0.63 mg/dL See Below [facility] Work Phone: Comment on above: Reference Range: 0.5 0 - 1.05 Glucose [Mass/Vol] 88 mg/dL 74 - 99 [facility] Work Phone: Phosphate [Mass/Vol] 3.4 mg/dL 2.5 - 4.9 [facility] Work Phone: Comment on above: The performance arsalan acteristics of phosphorus testing in heparinized plasma have been validated by the individual laboratory site where testing is performed. Testing on heparinized plasma is not approved by the FDA; however, such approval is not necessary. Potassium [Moles/Vol] 3.7 mmol/L 3.5 - 5.3 [facility] Work Phone: Sodium [Moles/Vol] 140 mmol/L 136 - 145 [facility] Work Phone: Urea nitrogen [Mass/Vol] 10 mg/dL 6 - 23 [facility] Work Phone: Renal Function Panel >90 >90 [facility] Work Phone: Comment on above: CALCULATIONS OF IVY MATED GFR ARE PERFORMED USING THE 2020 CKD-EPI STUDY REFIT EQUATION WITHOUT THE RACE VARIABLE FOR THE IDMS-TRACEABLE CREATININE METHODS.https://jasn.asnjournals.org/content//ASN .6298121127 UA MICROSCOPICon 09-16-2021 BACTERIA 2+ /HPF Abnormal [facility] Comment on above: Performed By: #### U AMIC ####[id number] [place] [address] Mucus Ql (Urine sed) 1+ /LPF Normal [facility] [facility] Comment on above: Performed By: #### U AMIC ####[id number] [place] [address] RBC 3 /HPF Normal 0-5 [facility] Comment on above: Performed By: #### U AMIC ####[id number] [place] [address] SQUAMOUS EPITH. CELLS 2 /HPF Normal [facility] Comment on above: Performed By: #### U AMIC ####[id number] [place] [address] WBC 115 /HPF Abnormal 0-5 [facility] Comment on above: Performed By: #### U AMIC ####[id number] [place] [address] URINALYSISon 09-16-2021 Appearance (U) HAZY Normal CLEAR [facility] Comment on above: Performed By: #### U A ####[id number] [place] [address] Bilirubin Ql (U) Negative Normal NEGATIVE [facility] Comment on above: Performed By: #### U A ####[id number] [place] [address] Color (U) YELLOW Normal STRAW,YELLO W [facility] Comment on above: Performed By: #### U A ####[id number] [place] [address] Glucose Ql (U) Negative Normal NEGATIVE [facility] Comment on above: Performed By: #### U A ####[id number] [place] [address] Hemoglobin Ql (U) Negative Normal NEGATIVE [facility] Comment on above: Performed By: #### U A ####[id number] [place] [address] Ketones Ql (U) Negative Normal NEGATIVE [facility] Comment on above: Performed By: #### U A ####[id number] [place] [address] Leukocyte esterase Test strip Ql (U) LARGE (3+) Abnormal NEGATIVE [facility] Comment on above: Performed By: #### U A ####[id number] [place] [address] Nitrite Ql (U) Positive Abnormal NEGATIVE [facility] Comment on above: Performed By: #### U A ####[id number] [place] [address] pH (U) 6.0 [pH] Normal 5.0 - 8.0 [facility] Comment on above: Performed By: #### U A ####[id number] [place] [address] Protein Ql (U) Negative Normal NEGATIVE [facility] Comment on above: Performed By: #### U A ####[id number] [place] [address] Specific gravity (U) [Rel density] 1.011 Normal 1.005 - 1.035 [facility] Comment on above: Performed By: #### U A ####[id number] [place] [address] Urobilinogen (U) [Mass/Vol] 2.0 mg/dL High 0.0 - 1.9 [facility] Comment on above: Result Comment: Due to a manufacturing issue, low positive urobilinogen results may be falsely positive. Correlate with urine bilirubin and additional clinical/laboratory findings to assess the risk of hemolytic anemia or liver disease. If clinically indicated, repeat testing with an alternate method is available by contacting the laboratory within 24 hours. . Some pigments and medications may cause a false positive urobilinogen. Performed By: #### U A ####[id number] [place] [address] URINE CULTURE,BACTERIALon URINE CULTURE,BACTERIAL PATIENT: MORALES LEE LOCATION: [facility]#: [id number] : 71 AGE: SEX: F ORDERED BY: TOSHA BORJA SOURCE: URINE COLLECTED: 09/16/21 08:42 ANTIBIOTICS AT [facility].: RECEIVED : 09/16/21 17:08 SITE: Esther Kerr U L T S URINE CULTURE,BACTERIAL FINAL 09/18/21 09:19 ISOLATE1 : Escherichia coli >100,000 CFU/ML Organism E coli Antibiotic BP INTRP Ampicillin S Ceftriaxone S Cefazolin S Ciprofloxacin R Nitrofurantoin S Gentamicin S Levofloxacin R Piperc/Tazobact S Trimeth/Sulfa S S=SUSCEPTIBLE I=INTERMEDIATE R=RESISTANT SDD=SUSCEPTIBLE DOSE DEPENDENT NS=NONSUSCEPTIBLE X=REPORTED IN ERROR Normal [facility] Comment on above: Performed By: #### A FPA3 #### [facility] [id number] [place] [address] Urinalysison 09-16-2021 Color (U) YELLOW See Below [facility] Work Phone: Comment on above: Reference Range: STR AW,YELLOW Glucose Ql (U) Negative NEGATIVE [facility] Work Phone: Ketones Ql (U) Negative NEGATIVE [facility] 6 I Work Phone: Leukocyte esterase Test strip Ql (U) LARGE (3+) Abnormal NEGATIVE [facility] Work Phone: pH (U) 6.0 [pH] 5.0 - 8.0 [facility] Work Phone: Protein (U) [Mass/Vol] Negative NEGATIVE [facility] I Work Phone: RBC (U) [#/Vol] Negative NEGATIVE [facility] en [facility] 6 I Work Phone: Specific gravity (U) [Rel density] 1.011 1 See Below [facility] 6 [facility] Work Phone: Comment on above: Reference Range: 1.0 05 - 1.035 Urinalysis Positive Abnormal NEGATIVE [facility] Work Phone: Urinalysis 2.0 mg/dL above high threshold 0.0 - 1.9 [facility] 6 I Work Phone: Comment on above: Due to a manufacturi ng issue, low positive urobilinogen results may be falsely positive. Correlate with urine bilirubin and additional clinical/laboratory findings to assess the risk of hemolytic anemia or liver disease. If clinically indicated, repeat testing with an alternate method is available by contacting the laboratory within 24 hours..Some pigments and medications may cause a false positive urobilinogen. Urinalysis Negative NEGATIVE [facility] 6 [facility] Work Phone: Urinalysis HAZY CLEAR [facility] 6 I Work Phone: Urinalysis, Microscopicon Urinalysis, Microscopic 1+ [facility] 6 I Work Phone: Urinalysis, Microscopic 2+ Abnormal [facility] Work Phone: Urinalysis, Microscopic 2 {/HPF} [facility] Work Phone: Urinalysis, Microscopic 3 {/HPF} 0-5 [facility] Work Phone: Urinalysis, Microscopic 115 {/HPF} Abnormal 0-5 [facility] Work Phone: VASC LAB Venous Duplex Ultra sound DVTon 09-16-2021 VAS LAB Venous Duplex Ultrasound DVT [place] [address] and Vascular Lab Report Lower Venous Duplex Ultrasound Patient Name: MORALES LEE Reading Physician: [id number] Arjun Romero MD, RPVI Study Date: 09/16/2021 Referring Physician: [id number] RAGSDALE MRN/PID: [id number] PCP: Accession/Order#: [id number] CC Report to: Date of : 1975 Technologist: Isai Burleson RVT Gender: F Technologist 2: Admission Status: Outpatient Location Performed: [facility] Diagnosis/ICD: M79.89-Left leg swelling; M79.89-Right leg swelling Procedure/CPT: 93667 Peripheral venous duplex scan for DVT complete-73858 CONCLUSIONS: Right Lower Venous: No evidence of acute deep vein thrombus visualized in the right lower extremity. Left Lower Venous: Negative for acute thrombus in the visulaized vessels. Posterior tibial and peroneal veins were visualized in segments due to swelling, therefore, can not rule out acute thrombus. Additional Findings: Imaging \EANDE\ Doppler Findings: Right Compressible Thrombus Flow Iliac Yes None Spontaneous/Phasic CFV Yes None Spontaneous/Phasic PFV Yes None FV Proximal Yes None Spontaneous/Phasic FV Mid Yes None FV Distal Yes None Popliteal Yes None Spontaneous/Phasic Peroneal Yes None PTV Yes None Left Compress Thrombus Flow Iliac Yes None Spontaneous/Phasic CFV Yes None Spontaneous/Phasic PFV Yes None FV Proximal Yes None Spontaneous/Phasic FV Mid Yes None FV Distal Yes None Popliteal Yes None Spontaneous/Phasic Peroneal Yes None PTV Yes None [id number] Arjun Romero MD, YOLIE Final Normal [facility] VAS LAB Venous Duplex Ultra sound for DVTon 09-16-2021 [facility] Venous Duplex Ultrasound for DVT [facility] Work Phone: No Panel Informationon 09-15 [email or web address]?Ret rieveTestByDateTime?Patient XY=[id number]&Date= 2&Time=19%3a14%3a23%3a00&Te stType=ECG&Site=1&OutputTyp e=PDF&Ext=PDF [facility] Work Phone: Normal sinus rhythm [facility] stro[facility] 6 I Work Phone: Abnormal [facility] Work Phone: [phone] [facility] Work Phone: [phone] [facility] Work Phone: [phone] [facility] Work Phone: [phone] [facility] Work Phone: [phone] [facility] Work Phone: 14 1 [facility] Work Phone: [phone] [facility] Work Phone: 40 1 [facility] Work Phone: [phone] 1 [facility] Work Phone: 396 1 [facility] Work Phone: 82 [phone] [facility] Work Phone: 150 1 [facility] Work Phone: 87 1 [facility] I Work Phone: [email or web address]?Ret [email or web address]?Patient YP=[id number]&Date= 2&Time=19%3a14%3a42%3a00&Te stType=ECG&Site=1&OutputTyp e=PDF&Ext=PDF [facility] Work Phone: [phone] [facility] Work Phone: [phone] [facility] Work Phone: [phone] [facility] Work Phone: 147 1 [facility] Work Phone: 222 1 [facility] Work Phone: 27 1 [facility] Work Phone: 31 1 [facility] Work Phone: 46 1 [facility] Work Phone: [phone] 1 [facility] Work Phone: [phone] [facility] Work Phone: Order Reconciliationon 09-15 Order Reconciliation Page 1 Admission Reconciliation Document Reconciliation Type: Admission requested on behalf of Concetta Shi (Advanced Practice Nurse) done by Concetta Shi ([facility]) Admission - Reconciliation: 15-Sep-2021 19:03 by: Fidel Maciel (Resident)) Admission - Reset to Incomplete: 15-Sep-2021 21:47 by: Fidel Maciel ( (Resident)) Admission - Reconciliation: 15-Sep-2021 21:49 by: Fidel Maciel ( (Resident)) Admission - Reset to Incomplete: 16-Sep-2021 00:41 by: Fidel Maciel ( (Resident)) Admission - Reconciliation: 16-Sep-2021 00:42 by: Fidel Maciel ( (Resident)) Admission - Reset to Incomplete: 30-Sep-2021 14:18 by: Concetta Shi ([facility]) Admission - Reconciliation: 30-Sep-2021 14:20 by: Concetta Shi ([facility]) Home MedicationsEnteredLast Dose TakenReconciled with current Order Reconciliation Comment/ Additional Information acetaminophen 325 mg oral tablet 2 tab(s) orally every 6 hours, as needed while having post operative [id number] Reviewed and Held Ambien CR 12.5 mg oral tablet, extended release 1 tab(s) oral [id number] Zolpidem Tablet (AMBIEN)DOSE = 10 mg Oral At BedtimeNotes from Pharmacy: Substitution For Zolpidem (Ambien CR) 12.5 mg at Bedtime Ambien CR 12.5 mg oral tablet, extended release continued as the inpatient order Zolpidem Ankle Foot Orthosis for foot [id number] Reviewed and Held betamethasone topical valerate 0.1% topical cream 1 milena topical prn 15-Sep-2021 EnteredInError Reviewed and Held Bilateral Prafos - orthotics to fit, - ICD 10: R26.0, M21.37, M62.81 30-Sep-2021 Reviewed and Held calcium-vitamin D 500 mg-200 intl units (5 mcg) oral tablet 1 tab(s) orally 4 times a [id number] Calcium 500 mg - Vitamin D 200 Units Tablet (OSCAL with D)DOSE = 1 tablet(s) Oral 4 Times a DayClinician Notes: Equivalent to Calcium 500 mg - Vitamin D 5 mcg calcium-vitamin D 500 mg-200 intl units (5 mcg) oral tablet continued as the inpatient order Calcium 500 mg - Vitamin D 200 Units cyclobenzaprine 10 mg oral tablet 1 tab(s) oral 3 times a day, as needed for muscle -[id number] Cyclobenzaprine Tablet (FLEXERIL)DOSE = 10 mg Oral 3 Times a Day cyclobenzaprine 10 mg oral tablet continued as the inpatient order Cyclobenzaprine cyclobenzaprine 10 mg oral tablet 1 tab(s) orally 3 times a day, As Needed 30-Sep-2021 Reviewed and Held diazePAM 5 mg oral tablet 1 tab(s) orally every 8 hours, As needed, Anxiety 30-Sep-2021 Reviewed and Held diclofenac sodium 50 mg oral delayed release tablet 1 tab(s) orally 3 times a day, -DO NOT RESTART THIS MEDICATION UNTIL CLEARED BY DR. FREDERICK 15-Sep-2021 EnteredInError Reviewed and Held diclofenac topical 1% topical gel 1 milena topical [id number] Reviewed and Held DULoxetine 30 mg oral delayed release capsule 1 cap(s) orally once a day 30-Sep-2021 Reviewed and Held DULoxetine 30 mg oral delayed release capsule 1 cap(s) orally once a day 30-Sep-2021 Reviewed and Held furosemide 20 mg oral tablet 1 tab(s) orally once a day, As Needed 15-Sep-2021 Discontinued; Copy / Discontinue Reviewed and Held furosemide 20 mg oral tablet 2 tab(s) orally once a day, As [id number] Reviewed and Held gabapentin 800 mg oral tablet 1 tab(s) oral 3 times a [id number] Gabapentin Capsule (NEURONTIN)DOSE = 800 mg Oral 3 Times a Day gabapentin 800 mg oral tablet continued as the inpatient order Gabapentin LEFT AFO -Orthotics to fit, ICD 10: M21.0993-Rts-6478 Reviewed and Held lidocaine 5% topical film Apply topically to affected area once a day, As Needed near surgical incision for incisional pain 15-Sep-2021 EnteredInError Reviewed and Held lisinopril 20 mg oral tablet 1 tab(s) oral once a [id number] Lisinopril Tablet (PRINIVIL, ZESTRIL)DOSE = 20 mg Oral Daily lisinopril 20 mg oral tablet continued as the inpatient order Lisinopril MiraLax oral powder for reconstitution 1 orally once a day 16-Sep-2021 Discontinued; Discontinue from ORM Reviewed and Held nicotine 14 mg/24 hr transdermal film, extended release 1 patch transdermally once a day 15-Sep-2021 Nicotine 14 mg/ 24 hour TransDermal Film, Extended Release (NICODERM)DOSE = 1 patch TransDermal Every 24 HoursNotes from Pharmacy: [facility] nicotine 14 mg/24 hr transdermal film, extended release continued as the inpatient order Nicotine 14 mg/ 24 hour TransDermal oxyCODONE 5 mg oral tablet 1 tab(s) orally every 6 hours, As Needed while having severe post operative pain, ICD 10: G89.18 15-Sep-2021 EnteredInError Reviewed and Held polyethylene glycol 3350 oral powder for reconstitution 17 gram(s) orally 3 times a day - available over the counter at any -[id number]-7787 Reviewed and Held RIGHT AFO - Orthotics to fit, - M21.5242-Csb-1177 Reviewed and Held sennosides-docusate 8.6 mg-50 mg oral tablet 2 tab(s) orally 2 times a day , -Take while using oxycodone for post operative pain to prevent contipation 15-Sep-19 (more content not included)... Normal [facility] Radiologyon 09-15-2021 XR Chest Single view Normal [facility] astroen [facility]ology[facility] 6 [facility] Work Phone: TH CHEST 1 VIEWon 09-15-2021 TH CHEST 1 VIEW Patient Name: MORALES LEE STUDY: CHEST 1 VIEW; 09/15/2021 7:21 pm INDICATION: pre-op . COMPARISON: 12/26/2020. ACCESSION NUMBER(S): [id number] ORDERING CLINICIAN: TOSHA ELDER FINDINGS: CARDIOMEDIASTINAL SILHOUETTE: Cardiomediastinal silhouette is normal in size and configuration. LUNGS: Lungs are clear of focal airspace disease or edema. No pneumothorax ABDOMEN: Elevation right hemidiaphragm again noted. BONES: Patient status post cervical spine fusion. IMPRESSION: 1. No active airspace disease. Elevation of the right hemidiaphragm and correlate with any concern for diaphragmatic dysfunction. 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 Raghav villarreal in the Neurosurgery Spine Clinic at the [facility]. She is a very pleasant 46-year-old female, who recently underwent a L1 Vertbrectomy and T6-L4 Fusion with me on 12/26/2020 and is status post 8 Months out from her surgery. Patient failure to follow-up after her danya were removed for personal reasons and is seeing us today finally about 8 months from her surgery and has significant her lower back pain and difficulty standing upright along with numbness involving the left lower extremity. She mentions that she fell few times and majority of the symptoms that she has now started following the same. She underwent a CT scan in April at an outside hospital and I recommended her to see me in person to obtain full spine films and clinical evaluation 2 following that but she could not follow-up right after that for personal and covid related reasons 2 At this point of time she cannot walk at all secondary to excruciating pain in her back that she has been having since she fell. 2 She continues to have urinary incontinence that she had even before the surgery and has been a chronic symptoms of hers. Constitutional: No fever or chills Respiratory: No shortness of breath or wheezing Musculoskeletal: see HPI above Neurologic: See HPI above GENERAL: no apparent distress EYES: No icterus; extraocular movements intact NEURO: Neurologically patient is awake alert and oriented X 3 No obvious cranial nerve deficit. Strength is 5/5 throughout all motor groups tested. No pronator drift Deep tendon reflexes are symmetric throughout. Gait : Patient cannot even stand upright for even few minutes secondary to significant pain and have a bent forward posture. Sensory examination is intact to touch and painful stimuli. AP and lateral x-rays in the sitting position due to difficulty doing an upright x-rays where evaluated personally and shows evidence of a prior T5-L4 instrumented fusion with no evidence of any instrumentation failure within the construct but there is evidence of focal kyphosis at L4-5 level right below the construct secondary to likely posterior ligamentous injury and jumped facet at that level suggestive of obvious instability. CT scan of the pelvis and lumbar spine done at an outside hospital on 04/24/2021 was also reviewed and shows well aligned spine with no evidence of any instrumentation failure. There is evidence of a slight perching of the facets at L4-5 level.but not as obvious as seen on the X rays done today. 2 Ms. LEE is a really nice 46-year-old lady who has had significant thoracic hyperkyphosis for which she underwent a multilevel osteotomies and a thoracolumbar instrumented fusion with me in December 2020. She did very well with upright films demonstrating remarkable correction of her thoracic kyphosis after the surgery. She did not followed up with surgery after staple removal and mentioned that she fell few times and when the last time I was able to talk to her she was recommended to follow-up and see me in person to determine the etiology of her fall and rule out any underlying pathology from that but for various personal reasons she was not able to follow-up with me. She comes today with severe pain and difficulty walking upright and left lower extremity numbness on top of her symptoms of urinary incontinence that is baseline. I reviewed the x-rays that were done today that shows the presence of obvious instability with focal L4-5 kyphosis likely due to disruption of posterior tension band and ligaments at L4-5 level possibly due to the falls that she sustained which was not very obvious on the CT scan that she underwent in April 2021. She has left lower extremity numbness but her motor strength is well preserved but due to the pain and instability she cannot walk and I did recommend her to avoid ambulating much and clearly avoid any further wall due to risk of a complete motor weakness in the bilateral lower extremities due to the instability at L4-5 level below the thoracolumbar construct that she has especially following a fall that can lead to worsening of her instability. 2 There is no obvious bony fracture and it looks like the majority of it is a soft tissue ligamentous injury with jumped facet at L4-5 level secondary to the trauma. I discussed with the patient and her the imaging findings and the various symptoms that she has and the various medical issues that she has including the fact that she has been on Suboxone but recommended surgery due to presence of obvious instability (more content not included)... Normal [facility] No Panel Informationon 09-08 Normal [facility] Work Phone: Please click on the link to view the study images Normal [facility] Work Phone: SPINE, ENTIRE THORACIC/LUMBA R, INCLUDE SKULL, CERVICAL ANSD SACRAL SPINE WHEN PERFORMED 2 OR 3 VIEWon 09-08-2021 SPINE, ENTIRE THORACIC/LUMBAR, INCLUDE SKULL, CERVICAL ANSD SACRAL SPINE WHEN PERFORMED 2 OR 3 VIEW Patient Name: MORALES LEE STUDY: SPINE, ENTIRE THORACIC/LUMBAR, INCLUDE SKULL, CERVICAL ANSD SACRAL SPINE WHEN PERFORMED 2 OR 3 VIEW INDICATION: L1 Vertbrectomy and T6-L4 Fusion. COMPARISON: None. ACCESSION NUMBER(S): [id number] ORDERING CLINICIAN: LEX FREDERICK FINDINGS: Fused PA and lateral images of spine were obtained utilizing individual PA and lateral images of the whole spine. Lungs are noted to be markedly hypoinflated with atelectatic changes in the bilateral lung bases. Status post L1 vertebrectomy and T6-L4 fusion. Hardware is intact without perihardware fractures or lucencies. There is advanced kyphosis of the thoracolumbar junction. There is chronic compression fracture of the L1 vertebral body with similar degree moderate anterior height loss. There is marked angulation and distraction at L4-5 disc space with focal kyphosis concerning for instability. Severe kyphosis noted of the thoracic spine. Multiple chronic compression fractures again noted. IMPRESSION: Marked angulation with focal kyphosis and distraction at L4-5 disc space concerning for instability. A yellow level alert message is sent to the referring provider at the time of interpretation. T6-L4 fusion without hardware complication. Advanced kyphosis of the thoracolumbar junction, although with interval improvement when compared with the preoperative radiographs. Chronic L1 vertebral body compression fracture with similar appearance. Electronically signed by: JOSEPH SALAZAR MD Normal [facility] Tobacco Screening.on Fall risk assessment b) One or more fall s in the last year -Nuha Doyle Work Phone: Tobacco use status [facility] a) Yes [employer]-Nuha Doyle Work Phone: Established Visit (Neurosurg ariana)on 05-05-2021 Established Visit (Neurosurgery) History of Present Illness I just had the pleasure of seeing Mrs. Raghav villarreal in the Neurosurgery Spine Clinic at the [facility]. She is a very pleasant 45 -year-old female, who recently underwent a L1 Vertbrectomy and T6-L4 Fusion with me on 12/26/2020 and is status post 4 Months out from her surgery. Today's visit was a virtual visit with the patient at her home and myself at [facility]. She mentions that overall she is doing okay as far as neurological status is concerned but she still continues to have back pain along with difficulty standing upright which was her primary complaint. She mentioned that she had fallen likely times or so and 1 of time where she fall off the bed. She underwent a CT scan of the lumbar spine recently and wanted to discuss the findings and update is about her clinical status. I reviewed the CT scans and mentioned her that overall does not shows any obvious evidence of instrumentation failure with a very tiny endplate fracture at the L4 vertebral level likely secondary to the fall. At this point of time I mention her that if she feels that she is not able to stand upright I may have to evaluate her clinically with full spine x-rays it may be possible that because of the falls that she had she might have injured her spine and I cannot rule out the possibility of instrumentation failure or bony fracture higher up in the thoracic spine where there is no recent imaging available that could be the cause of her continued kyphotic posture or if everything else is normal it could very well be related to the continued muscle weakness that she has due to chronic kyphotic deformity for which she underwent surgery. I emphasized to her that at this point of time she should schedule appointment to see me in person for me to comment further on her neurological status and overall posture and whether she would require any further surgical intervention or not or whether she would benefit from continued nonoperative treatment with physical therapy. She expressed understanding and would be scheduled to see me in the next few days or weeks. It was a pleasure to participate in Ms. LEE care. Lex Frederick MD, [facility], FAANS Director - Minimally Invasive Spine Surgery [facility] [employer] Opener of Neurological Surgery [facility] [employer] [place], [place] Some of this note was completed using [employer] voice recognition technology and sometimes the software misinterprets words. This may include unintended errors with respect to translation of words, typographical errors or grammar errors which may not have been identified prior to finalization of the chart note. Please take this into account when reading this note. Active Problems Problems At risk for obstructive sleep apnea (V49.89) (Z91.89) Compression fracture of L1 vertebra, sequela (905.1) (S32.010S) Gait disturbance (781.2) (R26.9) Lumbar pain (724.2) (M54.5) Preoperative clearance (V72.84) (Z01.818) Scoliosis of lumbar spine, unspecified scoliosis type (737.30) (M41.9) Spinal cord compression (336.9) (G95.20) Spinal deformity (756.10) (Q76.49) Spinal stenosis of thoracolumbar region (724.01) (M48.05) Thoracic kyphosis (737.10) (M40.204) Thoracic myelopathy (721.41) (M47.14) Thoracolumbar kyphosis (737.10) (M40.205) Past Medical History Problems History of drug abuse (305.93) (F19.11) History of neuromuscular disorder (V12.49) (Z86.69) Family History Mother Family history of Medical history unknown Father Family history of Medical history unknown Sibling Family history of Medical history unknown Social History Problems Current smoker (305.1) (F17.200) History of drug use (305.93) (Z87.898) Allergies Medication Codeine Hives;; Recorded By: Lucero Lowry; 10/28/2020 12:18:23 PM Penicillins Hives;; Recorded By: Lucero Lowry; 10/28/2020 12:18:23 PM Current Meds Medication NameInstruction Ambien CR 12.5 MG Oral Tablet Extended Release Betamethasone Valerate 0.1 % External CreamAPPLY TO AFFECTED AREA TWICE DAILY NEEDED FOR ITCHING FOR NO MORETHAN 2 WEEKS CONSECUTIVELY Chlorhexidine Gluconate 4 % LIQDuse as a preoperative shower Cyclobenzaprine HCl - 5 MG Oral Tablet Gabapentin 800 MG Oral Tablet Lipocaine 5 5 % External Cream Lisinopril 20 MG Oral Tablet Mupirocin 2 % External Ointmentuse intra nasally 3 days before surgery twice daily Suboxone 8-2 MG Sublingual Film Valium 10 MG Oral Tablet Voltaren 1 % External Gel Zofran 4 MG Oral Tablet Signatures Electronically signed by : Lex Frederick MD; May 05 2021 9:18PM EST (Author) Normal [employer] Established Visit (Neurosurg ariana)on 01-08-2021 Established Visit (Neurosurgery) Orders Spinal deformity Xray Spine, entire thoracic/lumbar, include skull, cervical and sacral spine when performed, 2 or 3 view; Status:Hold For - Scheduling,Retrospective By Protocol Authorization; Requested for:05Feb2021; Radiologist to Determine Optimal Study : Y What are the patient's signs and symptoms? : L1 Vertbrectomy and T6-L4 Fusion Chief Complaint POV History of Present Illness I just had the pleasure of seeing Mrs. Lee back in the Neurosurgery Spine Clinic at the [facility]. She is a very pleasant 45 -year-old female, who recently underwent a L1 Vertbrectomy and T6-L4 Fusion with ia on 12/26/2020 and is status post 2 weeks out from her surgery. Ms. LEE is doing well from her surgery. Her incision has been healing well. The danya were removed today. Alert and oriented No new neurological deficits. Motor strength baseline. There are no concerning neurological issues at this point.She has been back on suboxone that is being prescribed by her pain management physician who has been doing that for her even before the surgery. Overall she feels that she is able to stand up straighter and much better as compared to before the surgery though she continues to be in significant back pain which is not unexpected considering the major deformity surgery that she underwent and she is barely 2 weeks out from her surgery. At his point of time, we will see her back in clinic in 4 weeks from now for the 6 weeks follow up visit with an AP and lateral long cassette SCOLIOSIS FILMS. It was a pleasure to participate in Ms. LEE care. All questions were answered to the patients satisfaction and she explained understanding of the further treatment plan. Lex Frederick MD, [facility], FAANS Director - Minimally Invasive Spine Surgery [facility] [employer] Clamp Operator of Neurological Surgery [facility] [employer] [place], [place] Some of this note was completed using [employer] voice recognition technology and sometimes the software misinterprets words. This may include unintended errors with respect to translation of words, typographical errors or grammar errors which may not have been identified prior to finalization of the chart note. Please take this into account when reading this note. Active Problems Problems At risk for obstructive sleep apnea (V49.89) (Z91.89) Compression fracture of L1 vertebra, sequela (905.1) (S32.010S) Gait disturbance (781.2)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 is an acute change (in the absence of imaging). She started to yell at me that she is not asking for opioids. I again apologized and explained that I have made my recommendations and asked what more she is expecting of my services. The patient asked me to leave. She is now leaving [facility]. 3. Will sign off SUBJECTIVE CHIEF COMPLAINT: worsening of chronic neck and LUE pain HPI: Morales Lee a 44 year old female; pertinent PMH: fibromyalgia, major depressive disorder, chronic neck and back pain, opiate addiction; admitted 06/20/2019 for worsening of chronic neck pain and radiculopathy. I have been asked to evaluate her for acute on chronic neck pain; on suboxone. No imaging completed. Home Pain Medications: - Opioids: buprenorphine-naloxone 8-2mg 1 tab bid - Muscle Relaxants: tizanidine 4mg q8hr prn - Membrane Stabilizers: gabapentin 600mg tid Adverse Effects to Medications: allergy listed to codeine Aberrancy: h/o opioid abuse/addiction, now on suboxone PDMP website checked and validated. All prescriptions have been APPROPRIATELY filled. No suspicious activity was identified. 06/20/2019 by Evelyn Resendez APRN.BROOM MAN PAST MEDICAL HISTORY Diagnosis Date - Degenerative disc disease cervical AND lumbar - Fibromyalgia - major depressive disorder PAST SURGICAL HISTORY Procedure Laterality Date - APPENDECTOMY 1987 - CHOLECYSTECTOMY 2005 - LX REPAIR RECURRENT VENTRAL HERNIA 2006 with mesh - PAST SURGICAL HISTORY OF 2016 Cervivcal fusion - PAST SURGICAL HISTORY OF 2017 Thoracic surgery - PAST SURGICAL HISTORY OF Right ear construction - plastic surgery rejected - TOTAL ABDOM HYSTERECTOMY 2000 with BSO for endometriosis + abnormal eggs FAMILY HISTORY Problem Relation Age of Onset - Ischemic Heart Disease Mother 50 - other (narcotic addiction) Mother - Ischemic Heart Disease Maternal Grandmother - Ischemic Heart Disease Maternal Aunt - Heart disease Maternal Aunt - Diabetes Maternal Grandfather - Heart disease Maternal Aunt Social History Socioeconomic History Marital status: Spouse name: Not on file Number of children: Not on file Years of education: Not on file Highest education level: Not on file Occupational History Not on file Social Needs Financial resource strain: Not on file Food insecurity: Worry: Not on file Inability: Not on file Transportation needs: Medical: Not on file Non-medical: Not on file Tobacco Use Smoking status: Current Every Day Smoker Packs/day: 1.50 Years: 20.00 Pack years: 30 Smokeless tobacco: Never Used Substance and Sexual Activity Alcohol use: No Drug use: Not Currently Comment: Narcotics: methadone, oxycodone, vicodin. Currently vicodin, 10-15 pills per day. Sexual activity: Not on file Lifestyle Physical activity: Days per week: Not on file Minutes per session: Not on file Stress: Not on file Relationships Social connections: Talks on phone: Not on file Gets together: Not on file Attends faith service: Not on file Active member of club or organization: Not on file Attends meetings of clubs or organizations: Not on file Relationship status: Not on file Intimate partner violence: Fear of current or ex partner: Not on file Emotionally abused: Not on file Physically abused: Not on file Forced sexual activity: Not on file Other Topics Concerns: Not on file Social History Narrative Not on file Current Facility-Administered Medications Medication Dose Route Frequency - lisinopril 20 mg tab(s) (ZESTRIL, PRINIVIL) 20 mg ORAL DAILY - diazePAM 5 mg tab(s) (VALIUM) 5 mg ORAL TID PRN - gabapentin 600 mg cap(s) (NEURONTIN) 600 mg ORAL TID - furosemide 40 mg tab(s) (LASIX) 40 mg ORAL DAILY - zolpidem 5 mg tab(s) (AMBIEN) 5 mg ORAL HS PRN - tiZANidine 4 mg tab(s) (ZANAFLEX) 4 mg ORAL TID PRN - NaCl 0.9% 3-5 mL 3-5 mL INTRAVENOUS q 12 H - acetaminophen 650 mg tab(s) (TYLENOL) 650 mg ORAL q 6 H PRN - nicotine 21 mg/24 hr 1 Patch (NICODERM) 1 Patch TRANSDERMAL DAILY And - [START ON 06/21/2019] nicotine -- REMOVE patch OTHER DAILY And - nicotine - verify patch OTHER q 8 H - hydroCHLOROthiazide 12.5 mg tab(s) (HYDRODIURIL, ESIDRIX) 12.5 mg ORAL DAILY - ketorolac 15 mg injection (TORADOL) 15 mg INTRAVENOUS q 6 H PRN - lidocaine 5 % 1 Patch (LIDODERM) 1 Patch TRANSDERMAL DAILY And - lidocaine patch - REMOVE OTHER AT BEDTIME And - lidocaine - VERIFY PATCH OTHER q 8 H - methylPREDNISolone 4-8 mg tab(s) (MEDROL DOSE-PACK) 4-8 mg ORAL QID - [START ON 06/21/2019] methylPREDNISolone (MEDROL) tablet(s) 4-8 mg 4-8 mg ORAL QID - [START ON 06/22/2019] methylPREDNISolone (MEDROL) tablet(s) 4 mg 4 mg ORAL QID - [START ON 06/23/2019] methylPREDNISolone (MEDROL) tablet(s) 4 mg 4 mg ORAL TID w MEALS - [START ON 06/24/2019] methylPREDNISolone (MEDROL) tablet(s) 4 mg 4 mg ORAL BID w MEALS - [START ON 06/25/2019] methylPREDNISolone (MEDROL) tablet(s) 4 mg 4 mg ORAL DAILY WITH BREAKFAST - buprenorphine-nalOXone SL 8-2 mg 1 tablet (SUBOXONE) 1 tablet SUBLINGUAL BID ALLERGIES Allergen Reactions - Codeine Swelling - Penicillins Swelling - Phenergan [Prometha* Swelling REVIEW OF SYSTEMS: See admission HANDP OBJECTIVE: PHYSICAL EXAMINATION: BP 93/60 Pulse 71 Temp (Src) 97.6 (Oral) Resp 16 SpO2 91% O2 Therapy: Room Air General appearance: well appearing, alert and in no acute distress Neuro: sleeping, arouses to voice, oriented x 3 Musculoskeletal: severe cervical paraspinal muscle spasm and tenderness with palpation bilaterally, tenderness bilaterally to trapezius muscles, tenderness with palpation of left shoulder, increased pain with ROM of LUE; noted tenderness with palpation of thoracic and lumbar spine as well as bilateral paraspinal muscles throughout CV: RRR, S1/2 Pulm: CTAB; even, non-labored respirations GI/: soft, +BS Skin/Extremities: Edema- No LABS: CBC, Coags, BMP, Mg, Phos Recent Labs 06/20/19 0539 06/19/198 WBC 10.85 13.18* HB 16.8* 18.0* HCT 48.7* 52.6* PLT 334 370 NA -- 139 K -- 3.7 CHLOR -- 96* CO2 -- 29 BUN -- 7 CREAT -- 0.59 GLUC -- 114* CA -- 10.3* MG -- 2.0 IMAGING: XR scoliosis (06/12/2019) - Again seen is moderate L1 and mild T11, T12/L2 vertebral compression deformities. Mild superior endplate compression at L3. ?There is accentuation of thoracolumbar kyphosis. ?Postoperative changes noted at C6-C7 level with anterior fusion. ?Mild degenerative changes at multiple levels particularly in the lower cervical and upper lumbar spine.. ?No other significant abnormality. I would like to thank you for allowing [facility] to participate in the Morales Parker Raghav's care. SIGNATURE: Evelyn Resendez APRN.BROOM MAN PATIENT NAME: Morales Lee DATE: June 20, 2019 TIME: 8:24 AM PAGER/CONTACT #: [phone] ([id number] [id number]) [facility] CT BRAIN WO IVCONon 06-20-[address] BRAIN WO IVCON * * *Final Report* * * DATE OF EXAM: Jun 20 2019 1:31AM [facility] 0504 - CT BRAIN WO IVCON / PROCEDURE REASON: Numbness or tingling, paresthesia * * * * Physician Interpretation * * * * EXAMINATION: CT BRAIN WO IVCON CLINICAL HISTORY: Numbness or tingling, paresthesia TECHNIQUE: Serial axial images without IV contrast were obtained from the vertex to the foramen magnum. MQ: CTBWO_3 CT Dose-Length Product (DLP): 778 mGy*cm CT Dose Reduction Employed: No dose reduction techniques were required COMPARISON: None. RESULT: Post-operative change: None. Acute change: No evidence of an acute infarct or other acute parenchymal process. Hemorrhage: No evidence of acute intracranial hemorrhage. Mass Lesion / Mass Effect: There is no evidence of an intracranial mass or extraaxial fluid collection. No significant mass effect. Chronic change: None apparent. Parenchyma: There is no significant volume loss. The brain parenchyma is otherwise within normal limits for age. Ventricles: The ventricles are within normal limits of size and configuration for age. Paranasal sinuses and skull base: The visualized paranasal sinuses are grossly clear. The skull base and imaged soft tissues are unremarkable. IMPRESSION: No large cortical infarct or acute hemorrhage. Livestock Nutritionist: ADITYA Transcribe Date/Time: Jun 20 2019 1:33A Dictated by : DAVONTE MOY MD This examination was interpreted and the report reviewed and electronically signed by: DAVONTE MOY MD on Jun 20 2019 1:35AM EST [id number] [facility] ECG COMPLETEon 06-20-2019 ECG COMPLETE NAME : MORALES LEE PID : [id number] : 1975 Gender : Female Race : ORD : [id number] Procedure Date : Jun 19 2019 23:57:03 Edit Date : Jun 20 2019 07:51:18 Diagnosis:Sinus rhythm Normal ECG no STEMI 1200a Confirmed by MD ARREDONDO LISA ([id number]), deputy editor in chief FOREST WALTON ([id number]) on 06/20/2019 7:51:18 AM Ventricular Rate : 85 BPM Atrial Rate : 85 BPM P-R Interval : 137 ms QRS Duration : 91 ms Q-T Interval : 365 ms QTC Calculation(Bazett) : 434 ms [address] [employer] : 51 degrees [address] [employer] : -13 degrees T [employer] : 61 degrees Test Reason : Chest Pain Location : 302 : ED AVED-1 Overread By : MD CORBY,TRACY Edited By : FOREST WALTON Referred By : , Acquired by : [id number], [facility] ED NOTEon 06-20-2019 ED NOTE HNO ID: [id number] Author: Yuki Mckenzie) EVARISTO Cruz Service: ? Author Type: Registered Nurse Type: ED Notes Filed: 06/20/2019 1:40 AM Note Text: Patient got CT, it is still pending and Jessie BONITA said ok to transfer to [place] with out results pending. Patient agreeing and understanding of transfer. updated on POC and transfer via telephone. DM here to take patient at this time. Pain is not improved at time of transfer. [facility] ED NOTE HNO ID: [id number] Author: Yuki Cruz RN Service: ? Author Type: Registered Nurse Type: ED Notes Filed: 06/20/2019 1:15 AM Note Text: Clean catch urine specimen obtained and sent. [facility] ED NOTE HNO ID: [id number] Author: Yuki Cruz RN Service: ? Author Type: Registered Nurse Type: ED Notes Filed: 06/20/2019 1:58 AM Note Text: Heidi MESA at bed side. Patient continues to be very upset and is wanting to leave AMA. She feels that she has been here for an extended period of time with nothing accomplished. She had asked for pain relief and something for nausea for an extended period of time. She was requesting her Ceboxon and was told twice by Heidi and Dr. Arredondo we are unable to proscribe that in ED. Heidi at bed side explaining the POC and process at this time with getting transferred to another facility. [facility] ED NOTE HNO ID: [id number] Author: Yuki Cruz RN Service: ? Author Type: Registered Nurse Type: ED Notes Filed: 06/20/2019 3:28 AM Note Text: Patient stated Valium did not help. She continues to be in pain and upset. She wanted to speak with someone in charge and update on POC. Normal [facility] HISTORY PHYSICALon 9 HISTORY PHYSICAL HNO ID: [id number] Author: Talita Wesley RN Service: General Internal Medicine Author Type: Nurse Practitioner Type: HANDP Filed: 06/20/2019 5:01 AM Note Text: RAPID OBSERVATION UNIT HISTORY AND PHYSICAL EXAMINATION SERVICE DATE: 06/20/2019 SERVICE TIME: 2:58 AM PRIMARY CARE PHYSICIAN: No primary care provider on file. Subjective CHIEF COMPLAINT: Neck pain HPI: This is a 44 year old female with PMH of chronic neck pain with radiculopathy s/p cervical fusion 2016, depression, fibromyalgia, who presents with worsening neck pain and worsening radiculopathy s/s. Patient states her neck pain began in 2003. Was placed on methadone and vicodin at the time. When asked if she tried any alternative treatment or medication she stated no, my doctor just went straight to methadone and vicodin and told me I would never get addicted. Patient states she got addicted and required rehab. She states MRI at the time showed slight herniation in C6 and she was told she was not a surgical candidate. It wasn't until 2015 that she got a second opinion and she received a C6 cervical fusion d/t worsening BERGERON, radiculopathy, and pain at the time. She denies physical therapy in the past. Today she presents with worsening neck pain and worsening radiculopathy into left arm. Neck pain described as constant throbbing 7/10. She states numbness/tingling has worsened in intensity into left hand stating now its all of her fingers. 5 months ago it was only her 4th and 5th finger on her left hand. She states 5 months ago she experienced a fall and hit her head at this time. Patient also reports worsening left arm pain. Denies any new injury or recent fall. Pain in left arm described as rubber bands around my arm and feelings of tightness that is constant. Notices a decreased relief manager strength and weakness in left hand. She states her left palm sometimes changes colors to reddish purple with change in temperature to cold which is new. Denies change in RUE strength. When asked about RUE radiculopathy, she states she always has had numbness into right 4th and 5th finger for a few years now but lately I notice it more. Patient unable to identify if RUE radiculopathy has worsened. For pain patient takes Suboxone daily. Last dose taken this morning. Patient has also tried muscle relaxants and states Zanaflex works better. When asked what pain medicine has worked best in the past for her, patient states Dilaudid. Patient reports she takes Valium for anxiety but she has been out of this medication for 5 days. She has an appointment on for evaluation and refill of this medication. Current 1 / PPD for about 20 years. Denies history of stroke. History of seizures in 2009 from withdrawal. Seratonin levels were high in my brain. Currently not taking anti-seizure medications. Last seizure >5 years. Denies chest pain or SOB or palpitations. Denies history of blood clots. Denies recent change in hearing or vision. Denies dizziness.Denies recent change in vision or hearing. FUNCTIONAL STATUS: Independent PAST MEDICAL HISTORY Diagnosis Date - Degenerative disc disease cervical AND lumbar - Fibromyalgia - major depressive disorder PAST SURGICAL HISTORY Procedure Laterality Date - APPENDECTOMY 1987 - CHOLECYSTECTOMY 2005 - LX REPAIR RECURRENT VENTRAL HERNIA 2006 with mesh - PAST SURGICAL HISTORY OF 2016 Cervivcal fusion - PAST SURGICAL HISTORY OF 2017 Thoracic surgery - PAST SURGICAL HISTORY OF Right ear construction - plastic surgery rejected - TOTAL ABDOM HYSTERECTOMY 2000 with BSO for endometriosis + abnormal eggs FAMILY HISTORY Problem Relation Age of Onset - Ischemic Heart Disease Mother 50 - other (narcotic addiction) Mother - Ischemic Heart Disease Maternal Grandmother - Ischemic Heart Disease Maternal Aunt - Heart disease Maternal Aunt - Diabetes Maternal Grandfather - Heart disease Maternal Aunt Social History Tobacco Use - Smoking status: Current Every Day Smoker Packs/day: 1.50 Years: 20.00 Pack years: 30.00 - Smokeless tobacco: Never Used Substance Use Topics - Alcohol use: No - Drug use: Not Currently Comment: Narcotics: methadone, oxycodone, vicodin. Currently vicodin, 10-15 pills per day. Medications Prior to Admission: lisinopril-hydrochlorothiaz geraldine (PRINZIDE,ZESTORETIC) 20-12.5 mg per tablet Take 1 tablet by mouth once daily. Disp: Rfl: 3 06/19/2019 at Unknown time Zolpidem (AMBIEN CR) 12.5 mg CR tablet Take 12.5 mg by mouth. Disp: Rfl: 06/19/2019 at Unknown time diazePAM (VALIUM) 5 mg tablet Take 5 mg by mouth three times daily as needed. Disp: Rfl: 0 Unknown at Unknown time tiZANidine (ZANAFLEX) 4 mg tablet TAKE 1 TABLET BY MOUTH EVERY 8 HOURS NEEDED (not to exceed 3 (THREE) doses in 24 HOURS) Disp: Rfl: 0 06/19/2019 at Unknown time furosemide (LASIX) 40 mg tablet Take 40 mg by mouth once daily. Disp: Rfl: 2 06/19/2019 at Unknown time gabapentin (NEURONTIN) 600 mg tablet Take 600 mg by mouth three times daily. Disp: Rfl: 0 06/19/2019 at 0900 polyethylene glycol 3350 (MIRALAX, GLYCOLAX) 17 gram/dose powder mix 17 grams in EIGHT OUNCE of beverage and drink every 2 (TWO) days Disp: Rfl: 0 06/19/2019 at Unknown time ondansetron (ZOFRAN) 4 mg tablet Take 4 mg by mouth twice daily as needed. Disp: Rfl: 0 Unknown at Unknown time Buprenorphine-Naloxone (SUBOXONE) 8-2 mg SUBLINGUAL Film Dissolve under the tongue twice daily. Disp: Rfl: 0 06/19/2019 at 0900 cyclobenzaprine (FLEXERIL) 10 mg ORAL tablet Take 1 tablet by mouth every 8 hours as needed. FOR PAIN OR SPASMS Disp: Rfl: 0 Unknown at Unknown time omeprazole (PRILOSEC) 20 mg ORAL capsule Take 20 mg by mouth once daily. Daily prn Disp: Rfl: 0 Unknown at Unknown time Diclofenac Sodium 3 % gel Apply 1 application to affected area three times daily as needed. Disp: Rfl: Taking ALLERGIES Allergen Reactions - Codeine Swelling - Penicillins Swelling - Phenergan [Prometha* Swelling COMPLETE REVIEW OF SYSTEMS: GENERAL: Denies malaise, fevers, chills HEENT: Denies frequent or significant headaches, changes in hearing or vision. NECK: Denies pain and significant neck swelling RESPIRATORY: Denies cough, hemoptysis, wheezing or shortness of breath. Denies recent URI or sinus congestion. Current Smoker. CARDIOVASCULAR: Denies chest pain, pressure, palpitations, leg swelling. Denies hx of AL. GI: Denies nausea, vomiting, diarrhea, abdominal pain, epigastric pain + incontinence (chronic) : Denies dysuria, hematuria, odor, incontinence + frequency (chronic) MUSCULOSKELETAL: See HPI PSYCH: + anxiety HEMATOLOGY/LYMPHOLOGY: Denies prolonged bleeding, bruising easily. Negative for hx of CA. Denies anti-coagulant use. ENDOCRINE: Denies hx of DM NEURO: + headaches + numbness (chronic) +weakness in LUE, + hx seizures >5years ago Denies syncope, paralysis,Denies blurred vision or double vision. Denies tinnitus. Denies hx of CVA Objective PHYSICAL EXAM: Physical Exam Performed: GENERAL: Alert, cooperative +anxiety and mildly distress SKIN: Skin color, texture, turgor grossly normal. HEAD/SINUSES: No significant findings, face is symmetric. EYES: PERRLA, EOMI. Anicteric sclera EARS: External ears normal NOSE: Nares normal. No abnormal discharge. OROPHARYNX: Lips, mucosa, and tongue normal. NECK: No jugulovenous distention, Supple. BACK: Back symmetric, Normal curvature, No CVAT. LUNGS: Normal respiratory rate and rhythm, chest symmetric, no chest deformities noted, diaphragmatic excursion normal and lungs clear to auscultation. Negative for cough. CARDIAC: Normal S1 and S2; no rubs, murmurs, or gallops. ABDOMEN: Abdomen soft, non-tender, non-distended, BS normal. EXTREMITIES: No edema. No calf tenderness. MUSCULOSKELETAL: Cervical ROM flexion 40/50% Extension 30/60% Left rotation 40/80% < right rotation 40/80% Decreased left C5-C7 sensation. Left relief manager strength 2/5. Right relief manager strength 5/5. UE DTR intact and equal. NEURO: Cranial nerves II-XII intact, alert and oriented x 3. Negative for facial droop, arm drift, or abnormal speech. Muscle strength even b/l LE. LE DTR equal. PULSES: 2+ radial, 2+ dorsalis pedis BP 113/71 Pulse 81 Temp (Src) 97.4 (Oral) Resp 18 SpO2 93% O2 Therapy: Room Air DATA: Diagnostic tests reviewed for today's visit: Most recent labs and imaging results. Most recent EKG Assessment/Plan Active Problems: Neck Pain with Radiculopathy Assessment: -Acute on chronic -H/o C6 fusion 2016 -Left arm pain, numbness/tingling, and strength progressively after fall 5 months ago hitting head -Today pain feels worse described as tightness into left arm, weak left hand relief manager strength, and worsening severity of numbness/tingling -Afebrile with mild leukocytosis (13.18) without signs of infection and slightly elevated H/H Plan: -monitor in CDU with tele -routine V/S -resumed Zanaflex -Added tylenol and toradol for pain- holding narcotics at this time d/t patient history. Will re-evaluate. -lidoderm patch -regular diet -medrol dose pack -consider physical therapy outpatient -Pain management consult- does not have established at home -neurosurgery consult for further imaging recommendations, EMG testing, and management -repeat CBC monitor leukocytosis Opiate Addiction Assessment AND Plan: Was originally placed on vicodin and methadone for neck pain 2003. Has been to rehab 3 times. Patient okay with taking opioids. Patient states she takes Suboxone 8-2mg SL BID. Last dose yesterday morning. Verified dose with [facility]. Last fill 05/27 for 27 day supply. Needs confirmed with patient pharmacy. Patient uses [facility] in [place], [place]. Patient provided #[phone]. Will call in am to confirm dose. Nicotine Abuse Assessment AND Plan: Smokes 1 1/2 PPD for 20 years. Smoking cessation advised. Nicotine patch ordered. Medication and Non-Pharmacologic VTE Prophylaxis/Anticoagulants VTE Prophylaxis: VTE prophylaxis appropriate SIGNATURE: Talita Wesley APRN.CNP PATIENT NAME: Morales Lee DATE: June 20, 2019 TIME: 2:58 AM PAGER/CONTACT #: [facility] # [phone] [facility] NURSING PROGon 06-20-2019 NURSING PROG HNO ID: [id number] Author: Austyn (Rn) EVARISTO Berumen Service: Nursing Author Type: Registered Nurse Type: Nursing Progress Note Filed: 06/20/2019 3:10 PM Note Text: Nursing Progress Note Patient Name: Morales Lee Patient Location: [id number] 2 Daily Note:06/20/2019 -pt is upset regarding the care she is receiving and no one is taking care of her pain. She feels her history of addiction is causing the providers to not treat her pain. The patient is tearful during this conversation with this RN, replied with HEART. Sat next to patient and let her state her concerns. RN spoke with who is at bedside. -RN spoke with Dr. Martin regarding pt having concerns about her care and also that her pain is not being treated. He will talk with the patient as soon as possible. -after speaking with pain management pt would like to leave AMA. This note was completed by: AUSTYN BERUMEN RN [facility] NURSING PROG HNO ID: [id number] Author: Austyn Mckenzie) EVARISTO Berumen Service: Nursing Author Type: Registered Nurse Type: Nursing Progress Note Filed: 06/20/2019 8:10 AM Note Text: Nursing Progress Note Patient Name: Morales Lee Patient Location: [id number] 2 Daily Note:06/20/2019 -assumed care of patient, pt is requesting her suboxone. We have to call to verify dosage. -EVARISTO Acosta called pharmacy provided by night CHORAL DIRECTOR and the pharmacy does not open until 9am. We will call back to verify dose later. -Dr. Kwon called to speak with this RN, he will be in to see the patient later today. This note was completed by: AUSTYN BERUMEN RN [facility] NURSING PROG HNO ID: [id number] Author: Guadalupe Mckenzie) EVARISTO Herbert Service: ? Author Type: Registered Nurse Type: Nursing Progress Note Filed: 06/20/2019 4:33 AM Note Text: Nursing Progress Note Patient Name: Morales Lee Patient Location: [id number] 2 Daily Note:AANDO x 3. C/O left hand pain. States pain is a burning And describes a wilting feeling. Left hand sensitive to cold. States she wears a mitten at times. C/O numbness to left hand. Chronic numbness to 4th and 5th fingers. Also C/O neck and back pain. Safety maintained at this time, call light and personal belongings in reach, bed locked and lowered. Safety plan updated with pt. PT states no other needs at this time. This note was completed by: Guadalupe Herbert RN [facility] PROGRESSon 06-20-2019 PROGRESS HNO ID: [id number] Author: Sedrick Martin Service: General Internal Medicine Author Type: Physician Type: Progress Notes Filed: 06/20/2019 11:04 AM Note Text: INPATIENT PROGRESS NOTE SERVICE DATE: 06/20/2019 SERVICE TIME: 10:41 AM PRIMARY SERVICE: OSORIO Subjective CHIEF COMPLAINT: neck pain INTERVAL HPI: Continues to c/o severe neck pain; awaiting NS evaluation. Pt. Rx. Appropriately with analgesics and anti-inflammatory Rx., however continuing to ask for more opioid based Rx. For relief of her constant neck/lt. Arm pain. Discussed at length the current options and pending NS consults with pt. And , who understand and agree to wait for upcoming assessment. Current Facility-Administered Medications Medication Dose Route Frequency - lisinopril 20 mg tab(s) (ZESTRIL, PRINIVIL) 20 mg ORAL DAILY - diazePAM 5 mg tab(s) (VALIUM) 5 mg ORAL TID PRN - gabapentin 600 mg cap(s) (NEURONTIN) 600 mg ORAL TID - furosemide 40 mg tab(s) (LASIX) 40 mg ORAL DAILY - zolpidem 5 mg tab(s) (AMBIEN) 5 mg ORAL HS PRN - tiZANidine 4 mg tab(s) (ZANAFLEX) 4 mg ORAL TID PRN - NaCl 0.9% 3-5 mL 3-5 mL INTRAVENOUS q 12 H - acetaminophen 650 mg tab(s) (TYLENOL) 650 mg ORAL q 6 H PRN -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 06-07-2022 12:48-0400 SaO2% (BldA) [Mass fraction] 96 % No Pcp Required [facility] 06-07-2022 12:48-0400 Systolic blood pressure 148 mm[Hg] No Pcp Required [facility] 01-06-2022 10:51-0400 Blood Pressure Location NATALIA MANNING [facility] 01-06-2022 10:51-0400 Diastolic blood pressure 86 mm[Hg] NATALIA MANNING [facility] 01-06-2022 10:51-0400 Heart rate 86 /min NATALIA MANNING [facility] 01-06-2022 10:51-0400 Respiratory rate 16 /min NATALIA MANNING [facility] 01-06-2022 10:51-0400 Systolic blood pressure 132 mm[Hg] NATALIA MANNING [facility] 09-08-2021 14:15-0500 Body height 149.86 cm No PCP None [facility] Work Phone: 09-08-2021 14:15-0500 Body mass index (BMI) [Ratio] 36.96 kg/m2 No PCP None OK-Ntxqpeccxmky-[facility] Work Phone: 09-08-2021 14:15-0500 Body surface area Derived from formula 1.78 m2 No PCP None CK-Atgkbgumzecy-Ok [facility] Work Phone: 09-08-2021 14:15-0500 Body weight 83.01 kg No PCP None [facility] Work Phone: 09-08-2021 14:15-0500 Diastolic blood pressure 68 mm[Hg] No PCP None YR-Yxcjxtounyzc-Ie uja Work Phone: 09-08-2021 14:15-0500 Heart rate 96 /min No PCP None [facility] Work Phone: 09-08-2021 14:15-0500 Respiratory rate 16 /min No PCP None [facility] Work Phone: 09-08-2021 14:15-0500 Systolic blood pressure 115 mm[Hg] No PCP None YU-Cznvzlqndwes-Qq uja Work Phone: 09-08-2021 14:15-0500 0 1 No PCP None [facility] Work Phone: Comment on above: [facility] 01-01-2021 16:46-0400 Heart rate 111 /min No Pcp Required [facility] 01-01-2021 16:46-0400 SaO2% (BldA) [Mass fraction] 95 % No Pcp Required [facility] 01-01-2021 14:00-0400 Body temperature 96.8 [degF] No Pcp Required [facility] 01-01-2021 14:00-0400 Diastolic blood pressure 77 mm[Hg] No Pcp Required [facility] 01-01-2021 14:00-0400 Respiratory rate 18 /min No Pcp Required [facility] 01-01-2021 14:00-0400 Systolic blood pressure 114 mm[Hg] No Pcp Required [facility] Encounters Encounter Date Encounter Type Care Provider Facility Start: 06-02-[address] Lex Frederick Facility:[id number] Start: 01-15-2023 End: 01-15-2023 ambulatory LALI BENITEZ Facility:H1 Start: 01-13-2023 End: 01-13-2023 ambulatory IVON Rojas Facility:H1 Start: 12-31-2022 ambulatory SHAIKH BIN Facility: [facility] Start: 12-22-2022 End: 12-22-2022 ambulatory SHAIKH Shirley STEWARD Facility: Start: 12-08-2022 AUDIT No PCP None [facility] [facility] [address] [place] Work Phone: Start: 12-08-2022 Chart Update No PCP None [facility] [address] [place] Work Phone: Start: 11-26-2022 End: 11-27-2022 ambulatory MENDOSA FAWWAD Facility:[facility] Start: 11-26-2022 End: 11-26-2022 Patient encounter procedure Danya Bingham [facility] Start: 11-22-2022 ambulatory MENDOSA H FAWWAD Facilit y:H1 Start: 11-09-2022 End: 11-09-[address] DEVANTE ELIZONDO . Facility:H1 Start: 10-22-2022 ambulatory Young Hargrove Faci lity:[facility] Start: 10-15-2022 End: 10-15-2022 ambulatory KYRA DIAB . Facility:H1 Start: 09-24-2022 End: 09-25-2022 ambulatory MENDOSA FAWWAD Facility:[facility] Start: 09-24-2022 End: 09-24-2022 Patient encounter procedure Danya Bingham [facility] Start: 09-01-2022 Encounter for preprocedural laboratory examination DANYA BINGHAM . [facility] Start: 08-25-2022 End: 08-26-2022 ambulatory MENDOSA H FAWWAD Facility:H1 Start: 08-24-2022 End: 08-25-2022 ambulatory MENDOSA H FAWWAD Facility:H1 Start: 08-24-2022 End: 08-25-2022 Encounter for preprocedural laboratory examination MENDOSA H FAWWAD Facility:H1 Start: 08-21-2022 ambulatory MENDOSA H FAWWAD Facilit y:H1 Start: 07-28-2022 ambulatory MENDOSA FAWWAD Facility: CD:[id number] Start: 07-16-2022 End: 07-17-2022 ambulatory MENDOSA FAWWAD Facility:[facility] Start: 07-16-2022 End: 07-16-2022 Patient encounter procedure Danya Bingham [facility] Start: 06-06-2022 End: 06-07-2022 Emergency department patient visit Yony Aguirre [facility] Adult ED Blue 45 Start: 05-31-2022 End: 05-31-[address] ALEXANDRU SORIA . Facility:H1 Start: 05-19-2022 End: 05-20-2022 ambulatory SHAIKH BIN Facility:[facility] Start: 05-19-2022 End: 05-19-2022 Off-Site [facility] Start: 05-07-2022 End: 05-07-2022 ambulatory SHAIKH Shirley STEWARD Facility:H1 Start: 04-08-2022 End: 04-08-[address] ABHINAV WEBB Facility:H1 Start: 03-30-2022 End: 03-31-[address] CLIF HUTTON Facility:H1 Start: 03-07-2022 End: 03-07-[address] ABHINAV WEBB Facility:H1 Start: 03-06-2022 End: 03-06-2022 ambulatory SHAIKH Shirley STEWARD Facility:H1 Start: 02-21-2022 End: 02-21-2022 ambulatory IVON LAWS . Facility:H1 Start: 02-10-2022 ambulatory DANYA Rojas Facility: H1 Start: 02-04-2022 End: 02-04-2022 Off-Site Danya Bingham [facility] Start: 01-11-2022 Chart Update No PCP None [facility] [employer] [place] Work Phone: Start: 01-11-2022 End: 01-11-2022 Patient encounter procedure Danya Bingham [facility] Start: 01-07-2022 AUDIT No PCP None [facility] [place] [address] Work Phone: Start: 01-06-2022 End: 01-06-2022 Patient encounter procedure NATALIA MANNING [facility] [place] Start: 10-13-2021 AUDIT No PCP None [facility] Work Phone: Start: 09-29-2021 AUDIT No PCP None [facility]Gastroe [facility]terology-[facility] [facility] Work Phone: Start: 09-15-2021 End: 10-02-2021 Evaluation and management of inpatient Dr. LEX FREDERICK Facility:[facility] Start: 09-09-2021 AUDIT No PCP None [facility] Work Phone: Start: 09-08-2021 Office outpatient vi sit 40 minutes No PCP None ZB-Yzzjkwerqvtr-Gnwrw Work Phone: Start: 05-05-2021 Postop follow up vis it related to original px No PCP None [place]-Hohlakhctjms-[facility]WLG[facility] Work Phone: Start: 12-26-2020 End: 01-01-2021 Evaluation and management of inpatient Lex Frederick [facility] [id number] [id number] 01 Preoperative state No PCP None [facility] Work Phone: Procedures Date Procedure Procedure Detail Performing Clinician Start: 09-21-[address] EFRAIN FREDERICK Comment on above: Performed By: #### A FPA3 #### [facility] [address] [place] [address] Start: 09-21-[address] EFRAIN FREDERICK Comment on above: Order Comment: VENECIA ESPINO, 09/21/2021 05:08TEST TYPE + SCREEN WAS CANCELLED, 09/21/2021 05:06 NO PHLEB ID ON TUBE. Result Comment: CALL ED RN AFSANEH ESPINO, 09/21/2021 05:08 Performed By: #### A FPA3 #### [facility] [address] [place] [address] Start: 09-17-[address] EFRAIN FREDERICK Comment on above: Performed By: #### T +S #### [facility] [address] [place] [address] Start: 12-27-2020 End: 12-28-2020 Release Blood Product-Packed Red Blood Cells Devante Defta Start: 12-26-2020 Renal function 2000 panel - Serum or Plasma Nabil Awan Appendectomy NATALIA MANNING Cholecystectomy NATALIAYOVANY CHAMBERS Hernia NATALIA MANNING Hysterectomy NATALIA MANNING mylogr NATALIA MANNING Plan of Treatment Date Care Activity Detail Author Start: 11-03-2021 POV, Provider: Lex Frederick, Status: Pen, Time: 2:00 PM POV, Provider: Lex Frederick, Status: Pen, Time: 2:00 PM YQ-Vgfwhilauovcxekn-Ly l[place] 6 I Work Phone: Start: 10-07-2021 Admission to same day surgery center RNSTEPHANIEIT, Provider: NURSE VISIT ASHLEY 5TH,MGNEUROSURGERY, Status: Pen, Time: 10:15 AM BK-Rlxtuihkdhshpioe-Iw l[place] 6 I Work Phone: Start: [facility]-18-20[facility]: Lex [facility], Status: Pen, Time: 8:00 AM [facility]: Lex Frederick, Status: Pen, Time: 8:00 AM EP-Rwbpsqitufdv-Smetv Work Phone: Start: 01-08-2021 Patient encounter procedure Neurosurgery Miguel Start: 12-31-2020 End: 01-01-2022 [facility] Comment on above: please place at beds geraldine for drain removal Start: 12-26-2020 End: 12-27-2021 Naloxone Injectable 0.4 mg IntraVenous Push Once ; (NARCAN)DOSE = 0.2 mg IntraVenous Push Once, PRN patient is unarousable, and respiratory rate lessClinician Notes: HOLD CORRESPONDENT Infusion and notify H.O. immediately Start: 26-Dec-2020 End: 26-Dec-2021 Ordered: 26-Dec-2020 Nabil Awan Intent Comments: HOLD CORRESPONDENT Infusion and notify H.O. immediately [facility] Comment on above: HOLD CORRESPONDENT Infusion an d notify H.O. immediately Immunizations Immunization Date Immunization Notes Care Provider Delfino chu 02-22-2020 tetanus toxoid, redu luis diphtheria toxoid, and acellular pertussis vaccine, adsorbed Danya Sisijacque [facility] 12-05-2018 hepatitis A vaccine, adult dosage Danya Zachery [facility] Payers Date Payer Category Payer Unknown 1973 Unknown [id number] 2.16. [id number] 1973 Unknown [id number] .. [id number] 1973 Unknown [id number] 2.16.84 0.1.488485.3.579.2.593 1973 Unknown [id number] 2.16.84 0.1.177612.3.579.2.593 1973 Unknown [id number] 2.16.84 0.1.419904.3.579.2.593 1973 Unknown [id number] 2.16.84 0.1.089409.3.579.2.593 1973 Unknown [id number] 2.16.84 0.1.069666.3.579.2.593 1973 Unknown [id number] 2.16.84 0.1.492552.3.579.2.593 1973 Unknown [id number] 2.16.84 0.1.895594.3.579.2.593 1973 Unknown [id number] 2.16.84 0.1.231951.3.579.2.593 1973 Unknown [id number] 2.16.84 0.1.053822.3.579.2.593 1973 Unknown [id number] 2.16.84 0.1.357390.3.579.2.593 1973 Unknown [id number] 2.16.84 0.1.464127.3.579.2.593 1973 Unknown [id number] 2.16.84 0.1.849532.3.579.2.593 1973 Unknown [id number] 2.16.84 0.1.101338.3.579.2.593 1973 Unknown [id number] 2.16.84 0.1.089036.3.579.2.593 1973 Unknown [id number] 2.16.84 0.1.709855.3.579.2.593 1973 Unknown [id number] 2.16.84 0.1.076609.3.579.2.593 1973 Unknown [id number] 2.16.84 0.1.147843.3.579.2.593 1973 Unknown [id number] 2.16.8 40.1.423467.3.579.2.727 1973 Unknown [id number] 2.16.8 40.1.430818.3.579.2.727 1973 Unknown [id number] 2.16.8 40.1.121177.3.579.2.727 1973 Unknown [id number] 2.16.8 40.1.857486.3.579.2.727 1973 Unknown [id number] 2.16.8 40.1.582860.3.579.2.727 1973 Unknown [id number] 2.16.8 40.1.958759.3.579.2.727 1973 Unknown [id number] 2.16.8 40.1.964848.3.579.2.727 1973 Unknown [id number] 2.16.8 40.1.313879.3.579.2.1046 1959 Unknown [id number] Social History Date Type Detail Facility [facility] [place] Tobacco smoking consumption unknown [facility] History of drug use History of drug use M T-Rkxyljqdqxtc-BHAWP Work Phone: Start: 01-05-2016 Tobacco smoking status Smokes tobacco daily (finding) [facility] Comment on above: 1ppd 1ppd Sex Assigned At Female [facility] Medical Equipment Procedure Code Equipment Code Equipment Origin al Text Equipment Identifier Dates 2 EA, SubLingual , Daily, Refill(s) 0 Start: 01-05-2016 2 EA, SubLingual , Daily, Refill(s) 0 Start: 01-05-2016 2 EA, SubLingual , Daily, Refill(s) 0 Start: 01-05-2016 Functional Status Date Assessment Result Facility 11-26-2022 Functional Status N/A [facility] 07-16-2022 Functional Status N/A [facility] Functional observable [facility] Mental Status Date Assessment Result Facility 12-29-2020 Cognitive functi ons [id number] [facility] Clinical Notes 12-26-2020 to 11-26-2022 Note Date & Type Note Facility 11-26-2022 Hospital Discharg e instructions Patient Education 11/26/2022 08:43:35 Indwelling Urinary Catheter Insertion, Care After Indwelling Urinary Catheter Insertion, Care After This sheet gives you information about how to care for yourself after your procedure. Your health care provider may also give you more specific instructions. If you have problems or questions, contact your health care provider. What can I expect after the procedure? After the procedure, it is common to have: Slight discomfort around your urethra where the catheter enters your body. Follow these instructions at home: Keep the drainage bag at or below the level of your bladder. Doing this ensures that urine can only drain out, not back into your body. Secure the catheter tubing and drainage bag to your leg or thigh to keep it from moving. Check the catheter tubing regularly to make sure there are no kinks or blockages. Take showers daily to keep the catheter clean. Do not take a bath. Do not pull on your catheter or try to remove it. Disconnect the tubing and drainage bag as little as possible. Empty the drainage bag every 2 4 hours, or more often if needed. Do not let the bag get completely full. Wash your hands with soap and water before and after touching the catheter, tubing, or drainage bag. Do not let the drainage bag or catheter tubing touch the floor. Drink enough fluids to keep your urine clear or pale yellow, or as told by your health care provider. Contact a health care provider if: Urine stops flowing into the drainage bag. You feel pain or pressure in the bladder area. You have back pain. Your catheter gets clogged. Your catheter starts to leak. Your urine looks cloudy. Your drainage bag or tubing looks dirty. You notice a bad smell when emptying your drainage bag. Get help right away if: You have a fever or chills. You have severe pain in your back or your lower abdomen. You have warmth, redness, swelling, or pain in the urethra area. You notice blood in your urine. Your catheter gets pulled out. Summary Do not pull on your catheter or try to remove it. Keep the drainage bag at or below the level of your bladder, but do not let the drainage bag or catheter tubing touch the floor. Wash your hands with soap and water before and after touching the catheter, tubing, or drainage bag. Contact your health care provider if you have a fever, chills, or any other signs of infection. This information is not intended to replace advice given to you by your health care provider. Make sure you discuss any questions you have with your health care provider. Document Released: 10/01/2017 Document Revised: 12/14/2019 Document Reviewed: 10/01/2017 Elsevier Patient Education 2019 Your.MD. Follow Up Care 10/14/2022 11:11:52 With:Danya Bingham MD, URL, URO Address: When: Unknown [facility] 09-23-2022 Hospital Discharg e instructions Patient Education 09/23/2022 13:13:56 Sacral Nerve Stimulator Implantation Sacral Nerve Stimulator Implantation Sacral nerve stimulator implantation is a procedure to place a device under the skin. The device generates mild electrical impulses. It is placed permanently in the area of the upper buttocks. Wires are also inserted into the body so that electrical impulses generated by the device can be sent to the sacral nerves. The sacral nerves control several functions in the lower part of the body, including the passing of urine and stool. Sacral nerve stimulation can be used to treat disorders that make it hard to control urination and bowel movements. After the device is implanted, it can be used 24 hours a day. The stimulator will be programmed for you. Your health care provider will set how strong the pulses will be (intensity) and how often they occur (frequency). Before putting in the implant, a trial test will be done to make sure that the treatment will work. Tell a health care provider about: Any allergies you have. All medicines you are taking, including vitamins, herbs, eye drops, creams, and hfvz-ksq-rvcbgeb medicines. Any problems you or family members have had with anesthetic medicines. Any blood disorders you have. Any surgeries you have had. Any medical conditions you have or have had. Whether you are or may be . What are the risks? Generally, this is a safe procedure. However, problems may occur, including: Infection. Bleeding. Uncomfortable sensations, such as a jolting or shocking feeling. Movement of the electrode away from the place where it was inserted (migration). Failure of the stimulator. Damage to other structures or organs, such as nerves near the spine. Allergic reactions to medicines or the device. What happens before the procedure? Staying hydrated Follow instructions from your health care provider about hydration, which may include: Up to 2 hours before the procedure you may continue to drink clear liquids, such as water, clear fruit juice, black coffee, and plain tea. Eating and drinking restrictions Follow instructions from your health care provider about eating and drinking, which may include: 8 hours before the procedure stop eating heavy meals or foods, such as meat, fried foods, or fatty foods. 6 hours before the procedure stop eating light meals or foods, such as toast or cereal. 6 hours before the procedure stop drinking milk or drinks that contain milk. 2 hours before the procedure stop drinking clear liquids. Medicines Ask your health care provider about: Changing or stopping your regular medicines. This is especially important if you are taking diabetes medicines or blood thinners. Taking medicines such as aspirin and ibuprofen. These medicines can thin your blood. Do not take these medicines unless your health care provider tells you to take them. Taking wtvp-fwv-zvwrqxb medicines, vitamins, herbs, and supplements. General instructions Plan to have someone take you home from the hospital or clinic. If you will be going home right after the procedure, plan to have someone with you for 24 hours. Ask your health care provider what steps will be taken to help prevent infection. These may include: ?Removing hair at the surgery site. ?Washing skin with a germ-killing soap. ?Taking antibiotic medicine. What happens during the procedure? An IV will be inserted into one of your veins. You will be given one or more of the following: ?A medicine to help you relax (sedative). ?A medicine to numb the area (local anesthetic). ?A medicine to make you fall asleep (general anesthetic). Long needles will be inserted into your lower back. Your health care provider will use a type of X-ray (fluoroscopy) to guide the needles to the right spot. The needles will be guided to the place where the nerves exit the backbone. The position of the needles will be tested. If they are in the right spot, your toes or feet may move. You may feel a tingling in your legs. The electrodes will be inserted through the needles and into your body. The electrodes will be anchored in place close to your sacral nerves. Small incisions will be made under the skin in your upper buttocks. The sacral nerve stimulator device will be placed in this area. The ends of the electrodes that attach to the stimulator will be guided under your skin. They will extend from your sacral nerves, where they are anchored, to the stimulator device. They will then be attached to the device. Your health care provider will program the rate at which the nerve stimulator will deliver the electronic pulses. The incisions will be closed with stitches (sutures) or danya. A bandage (dressing) will be placed over the incision area. The procedure may vary among health care providers and hospitals. What happens after the procedure? Your blood pressure, heart rate, breathing rate, and blood oxygen level will be monitored until you leave the hospital or clinic. You may be given pain and antibiotic medicine as needed. You will be taught how to use and care for the device. Do not drive for 24 hours if you were given a sedative during your procedure. Summary Sacral nerve stimulator implantation is a procedure to implant a device under your skin that will generate mild electrical impulses. Wires are also inserted into your body so that electrical impulses generated by the device can be sent to the sacral nerves. The sacral nerves control several functions in the lower part of the body, including bladder and bowel functions. If you will be going home right after the procedure, plan to have someone with you for 24 hours. You will be taught how to use and care for the device. Do not drive for 24 hours if you were given a sedative during your procedure. This information is not intended to replace advice given to you by your health care provider. Make sure you discuss any questions you have with your health care provider. Document Released: 08/08/2013 Document Revised: 10/08/2019 Document Reviewed: 10/08/2019 [employer] Patient Education 2020 [employer] Follow Up Care 08/31/2022 10:49:10 With:Zachery HARKINS, CAROLEE Anderson, URO Address: When: Unknown [facility] 07-16-2022 Hospital Discharg e instructions Patient Education 07/16/2022 11:35:59 Urinary Incontinence Urinary Incontinence Urinary incontinence refers to a condition in which a person is unable to control where and when to pass urine. A person with this condition will urinate when he or she does not mean to (involuntarily). What are the causes? This condition may be caused by: Medicines. Infections. Constipation. Overactive bladder muscles. Weak bladder muscles. Weak pelvic floor muscles. These muscles provide support for the bladder, intestine, and, in women, the uterus. Enlarged prostate in men. The prostate is a gland near the bladder. When it gets too big, it can pinch the urethra. With the urethra blocked, the bladder can weaken and lose the ability to empty properly. Surgery. Emotional factors, such as anxiety, stress, or post-traumatic stress disorder (PTSD). Pelvic organ prolapse. This happens in women when organs shift out of place and into the vagina. This shift can prevent the bladder and urethra from working properly. What increases the risk? The following factors may make you more likely to develop this condition: Older age. Obesity and physical inactivity. and childbirth. Menopause. Diseases that affect the nerves or spinal cord (neurological diseases). Long-term (chronic) coughing. This can increase pressure on the bladder and pelvic floor muscles. What are the signs or symptoms? Symptoms may vary depending on the type of urinary incontinence you have. They include: A sudden urge to urinate, but passing urine involuntarily before you can get to a bathroom (urge incontinence). Suddenly passing urine with any activity that forces urine to pass, such as coughing, laughing, exercise, or sneezing (stress incontinence). Needing to urinate often, but urinating only a small amount, or constantly dribbling urine (overflow incontinence). Urinating because you cannot get to the bathroom in time due to a physical disability, such as arthritis or injury, or communication and thinking problems, such as Alzheimer disease (functional incontinence). How is this diagnosed? This condition may be diagnosed based on: Your medical history. A physical exam. Tests, such as: ?Urine tests. ?X-rays of your kidney and bladder. ?Ultrasound. ?CT scan. ?Cystoscopy. In this procedure, a health care provider inserts a tube with a light and camera (cystoscope) through the urethra and into the bladder in order to check for problems. ?Urodynamic testing. These tests assess how well the bladder, urethra, and sphincter can store and release urine. There are different types of urodynamic tests, and they vary depending on what the test is measuring. To help diagnose your condition, your health care provider may recommend that you keep a log of when you urinate and how much you urinate. How is this treated? Treatment for this condition depends on the type of incontinence that you have and its cause. Treatment may include: Lifestyle changes, such as: ?Quitting smoking. ?Maintaining a healthy weight. ?Staying active. Try to get 150 minutes of moderate-intensity exercise every week. Ask your health care provider which activities are safe for you. ?Eating a healthy diet. ?Avoid high-fat foods, like fried foods. ?Avoid refined carbohydrates like white bread and white rice. ?Limit how much alcohol and caffeine you drink. ?Increase your fiber intake. Foods such as fresh fruits, vegetables, beans, and whole grains are healthy sources of fiber. Pelvic floor muscle exercises. Bladder training, such as lengthening the amount of time between bathroom breaks, or using the bathroom at regular intervals. Using techniques to suppress bladder urges. This can include distraction techniques or controlled breathing exercises. Medicines to relax the bladder muscles and prevent bladder spasms. Medicines to help slow or prevent the growth of a man's prostate. Botox injections. These can help relax the bladder muscles. Using pulses of electricity to help change bladder reflexes (electrical nerve stimulation). For women, using a certified medical transcriptionist to prevent urine leaks. This is a small, tampon-like, disposable device that is inserted into the urethra. Injecting collagen or carbon beads (bulking agents) into the urinary sphincter. These can help thicken tissue and close the bladder opening. Surgery. Follow these instructions at home: Lifestyle Limit alcohol and caffeine. These can fill your bladder quickly and irritate it. Keep yourself clean to help prevent odors and skin damage. Ask your doctor about special skin creams and cleansers that can protect the skin from urine. Consider wearing pads or adult diapers. Make sure to change them regularly, and always change them right after experiencing incontinence. General instructions Take tmuj-xqp-pvnkthe and prescription medicines only as told by your health care provider. Use the bathroom about every 3 4 hours, even if you do not feel the need to urinate. Try to empty your bladder completely every time. After urinating, wait a minute. Then try to urinate again. Make sure you are in a relaxed position while urinating. If your incontinence is caused by nerve problems, keep a log of the medicines you take and the times you go to the bathroom. Keep all follow-up visits as told by your health care provider. This is important. Contact a health care provider if: You have pain that gets worse. Your incontinence gets worse. Get help right away if: You have a fever or chills. You are unable to urinate. You have redness in your groin area or down your legs. Summary Urinary incontinence refers to a condition in which a person is unable to control where and when to pass urine. This condition may be caused by medicines, infection, weak bladder muscles, weak pelvic floor muscles, enlargement of the prostate (in men), or surgery. The following factors increase your risk for developing this condition: older age, obesity, and childbirth, menopause, neurological diseases, and chronic coughing. There are several types of urinary incontinence. They include urge incontinence, stress incontinence, overflow incontinence, and functional incontinence. This condition is usually treated first with lifestyle and behavioral changes, such as quitting smoking, eating a healthier diet, and doing regular pelvic floor exercises. Other treatment options include medicines, bulking agents, medical devices, electrical nerve stimulation, or surgery. This information is not intended to replace advice given to you by your health care provider. Make sure you discuss any questions you have with your health care provider. Document Released: 09/29/2005 Document Revised: 09/01/2018 Document Reviewed: 12/01/2017 [employer] Patient Education 2020 [employer] Follow Up Care 06/15/2022 11:30:52 With:Zachery HARKINS, CAROLEE Anderson, URO Address: When: Unknown [facility] 02-04-2022 Hospital Discharg e instructions Patient Education 02/04/2022 16:23:14 Urinary Incontinence Urinary Incontinence Urinary incontinence refers to a condition in which a person is unable to control where and when to pass urine. A person with this condition will urinate when he or she does not mean to (involuntarily). What are the causes? This condition may be caused by: Medicines. Infections. Constipation. Overactive bladder muscles. Weak bladder muscles. Weak pelvic floor muscles. These muscles provide support for the bladder, intestine, and, in women, the uterus. Enlarged prostate in men. The prostate is a gland near the bladder. When it gets too big, it can pinch the urethra. With the urethra blocked, the bladder can weaken and lose the ability to empty properly. Surgery. Emotional factors, such as anxiety, stress, or post-traumatic stress disorder (PTSD). Pelvic organ prolapse. This happens in women when organs shift out of place and into the vagina. This shift can prevent the bladder and urethra from working properly. What increases the risk? The following factors may make you more likely to develop this condition: Older age. Obesity and physical inactivity. and childbirth. Menopause. Diseases that affect the nerves or spinal cord (neurological diseases). Long-term (chronic) coughing. This can increase pressure on the bladder and pelvic floor muscles. What are the signs or symptoms? Symptoms may vary depending on the type of urinary incontinence you have. They include: A sudden urge to urinate, but passing urine involuntarily before you can get to a bathroom (urge incontinence). Suddenly passing urine with any activity that forces urine to pass, such as coughing, laughing, exercise, or sneezing (stress incontinence). Needing to urinate often, but urinating only a small amount, or constantly dribbling urine (overflow incontinence). Urinating because you cannot get to the bathroom in time due to a physical disability, such as arthritis or injury, or communication and thinking problems, such as Alzheimer disease (functional incontinence). How is this diagnosed? This condition may be diagnosed based on: Your medical history. A physical exam. Tests, such as: ?Urine tests. ?X-rays of your kidney and bladder. ?Ultrasound. ?CT scan. ?Cystoscopy. In this procedure, a health care provider inserts a tube with a light and camera (cystoscope) through the urethra and into the bladder in order to check for problems. ?Urodynamic testing. These tests assess how well the bladder, urethra, and sphincter can store and release urine. There are different types of urodynamic tests, and they vary depending on what the test is measuring. To help diagnose your condition, your health care provider may recommend that you keep a log of when you urinate and how much you urinate. How is this treated? Treatment for this condition depends on the type of incontinence that you have and its cause. Treatment may include: Lifestyle changes, such as: ?Quitting smoking. ?Maintaining a healthy weight. ?Staying active. Try to get 150 minutes of moderate-intensity exercise every week. Ask your health care provider which activities are safe for you. ?Eating a healthy diet. ?Avoid high-fat foods, like fried foods. ?Avoid refined carbohydrates like white bread and white rice. ?Limit how much alcohol and caffeine you drink. ?Increase your fiber intake. Foods such as fresh fruits, vegetables, beans, and whole grains are healthy sources of fiber. Pelvic floor muscle exercises. Bladder training, such as lengthening the amount of time between bathroom breaks, or using the bathroom at regular intervals. Using techniques to suppress bladder urges. This can include distraction techniques or controlled breathing exercises. Medicines to relax the bladder muscles and prevent bladder spasms. Medicines to help slow or prevent the growth of a man's prostate. Botox injections. These can help relax the bladder muscles. Using pulses of electricity to help change bladder reflexes (electrical nerve stimulation). For women, using a certified medical transcriptionist to prevent urine leaks. This is a small, tampon-like, disposable device that is inserted into the urethra. Injecting collagen or carbon beads (bulking agents) into the urinary sphincter. These can help thicken tissue and close the bladder opening. Surgery. Follow these instructions at home: Lifestyle Limit alcohol and caffeine. These can fill your bladder quickly and irritate it. Keep yourself clean to help prevent odors and skin damage. Ask your doctor about special skin creams and cleansers that can protect the skin from urine. Consider wearing pads or adult diapers. Make sure to change them regularly, and always change them right after experiencing incontinence. General instructions Take znpt-ydc-kasqjjj and prescription medicines only as told by your health care provider. Use the bathroom about every 3 4 hours, even if you do not feel the need to urinate. Try to empty your bladder completely every time. After urinating, wait a minute. Then try to urinate again. Make sure you are in a relaxed position while urinating. If your incontinence is caused by nerve problems, keep a log of the medicines you take and the times you go to the bathroom. Keep all follow-up visits as told by your health care provider. This is important. Contact a health care provider if: You have pain that gets worse. Your incontinence gets worse. Get help right away if: You have a fever or chills. You are unable to urinate. You have redness in your groin area or down your legs. Summary Urinary incontinence refers to a condition in which a person is unable to control where and when to pass urine. This condition may be caused by medicines, infection, weak bladder muscles, weak pelvic floor muscles, enlargement of the prostate (in men), or surgery. The following factors increase your risk for developing this condition: older age, obesity, and childbirth, menopause, neurological diseases, and chronic coughing. There are several types of urinary incontinence. They include urge incontinence, stress incontinence, overflow incontinence, and functional incontinence. This condition is usually treated first with lifestyle and behavioral changes, such as quitting smoking, eating a healthier diet, and doing regular pelvic floor exercises. Other treatment options include medicines, bulking agents, medical devices, electrical nerve stimulation, or surgery. This information is not intended to replace advice given to you by your health care provider. Make sure you discuss any questions you have with your health care provider. Document Released: 09/29/2005 Document Revised: 09/01/2018 Document Reviewed: 12/01/2017 [employer] Patient Education 2020 [employer]. 02/04/2022 16:23:10 Calorie Counting for Weight Loss Calorie Counting for Weight Loss Calories are units of energy. Your body needs a certain amount of calories from food to keep you going throughout the day. When you eat more calories than your body needs, your body stores the extra calories as fat. When you eat fewer calories than your body needs, your body [place] fat to get the energy it needs. Calorie counting means keeping track of how many calories you eat and drink each day. Calorie counting can be helpful if you need to lose weight. If you make sure to eat fewer calories than your body needs, you should lose weight. Ask your health care provider what a healthy weight is for you. For calorie counting to work, you will need to eat the right number of calories in a day in order to lose a healthy amount of weight per week. A dietitian can help you determine how many calories you need in a day and will give you suggestions on how to reach your calorie goal. A healthy amount of weight to lose per week is usually 1 2 lb (0.5 0.9 kg). This usually means that your daily calorie intake should be reduced by 500 750 calories. Eating 1,200 1,500 calories per day can help most women lose weight. Eating 1,500 1,800 calories per day can help most men lose weight. What is my plan? My goal is to have calories per day. If I have this many calories per day, I should lose around pounds per week. What do I need to know about calorie counting? In order to meet your daily calorie goal, you will need to: Find out how many calories are in each food you would like to eat. Try to do this before you eat. Decide how much of the food you plan to eat. Write down what you ate and how many calories it had. Doing this is called keeping a food log. To successfully lose weight, it is important to balance calorie counting with a healthy lifestyle that includes regular activity. Aim for 150 minutes of moderate exercise (such as walking) or 75 minutes of vigorous exercise (such as running) each week. Where do I find calorie information? The number of calories in a food can be found on a Nutrition Facts label. If a food does not have a Nutrition Facts label, try to look up the calories online or ask your dietitian for help. Remember that calories are listed per serving. If you choose to have more than one serving of a food, you will have to multiply the calories per serving by the amount of servings you plan to eat. For example, the label on a package of bread might say that a serving size is 1 slice and that there are 90 calories in a serving. If you eat 1 slice, you will have eaten 90 calories. If you eat 2 slices, you will have eaten 180 calories. How do I keep a food log? Immediately after each meal, record the following information in your food log: What you ate. Don't forget to include toppings, sauces, and other extras on the food. How much you ate. This can be measured in cups, ounces, or number of items. How many calories each food and drink had. The total number of calories in the meal. Keep your food log near you, such as in a small notebook in your pocket, or use a mobile milena or website. Some programs will calculate calories for you and show you how many calories you have left for the day to meet your goal. What are some calorie counting tips? Use your calories on foods and drinks that will fill you up and not leave you hungry: ?Some examples of foods that fill you up are nuts and nut butters, vegetables, lean proteins, and high-fiber foods like whole grains. High-fiber foods are foods with more than 5 g fiber per serving. ?Drinks such as sodas, specialty coffee drinks, alcohol, and juices have a lot of calories, yet do not fill you up. Eat nutritious foods and avoid empty calories. Empty calories are calories you get from foods or beverages that do not have many vitamins or protein, such as candy, sweets, and soda. It is better to have a nutritious high-calorie food (such as an avocado) than a food with few nutrients (such as a bag of chips). Know how many calories are in the foods you eat most often. This will help you calculate calorie counts faster. Pay attention to calories in drinks. Low-calorie drinks include water and unsweetened drinks. Pay attention to nutrition labels for low fat or fat free foods. These foods sometimes have the same amount of calories or more calories than the full fat versions. They also often have added sugar, starch, or salt, to make up for flavor that was removed with the fat. Find a way of tracking calories that works for you. Get creative. Try different apps or programs if writing down calories does not work for you. What are some portion control tips? Know how many calories are in a serving. This will help you know how many servings of a certain food you can have. Use a measuring cup to measure serving sizes. You could also try weighing out portions on a kitchen scale. With time, you will be able to estimate serving sizes for some foods. Take some time to put servings of different foods on your favorite plates, bowls, and cups so you know what a serving looks like. Try not to eat straight from a bag or box. Doing this can lead to overeating. Put the amount you would like to eat in a cup or on a plate to make sure you are eating the right portion. Use smaller plates, glasses, and bowls to prevent overeating. Try not to multitask (for example, watch TV or use your computer) while eating. If it is time to eat, sit down at a table and enjoy your food. This will help you to know when you are full. It will also help you to be aware of what you are eating and how much you are eating. What are tips for following this plan? Reading food labels Check the calorie count compared to the serving size. The serving size may be smaller than what you are used to eating. Check the source of the calories. Make sure the food you are eating is high in vitamins and protein and low in saturated and trans fats. Shopping Read nutrition labels while you shop. This will help you make healthy decisions before you decide to purchase your food. Make a grocery list and stick to it. Cooking Try to cook your favorite foods in a healthier way. For example, try baking instead of frying. Use low-fat dairy products. Meal planning Use more fruits and vegetables. Half of your plate should be fruits and vegetables. Include lean proteins like poultry and fish. How do I count calories when eating out? Ask for smaller portion sizes. Consider sharing an entree and sides instead of getting your own entree. If you get your own entree, eat only half. Ask for a box at the beginning of your meal and put the rest of your entree in it so you are not tempted to eat it. If calories are listed on the menu, choose the lower calorie options. Choose dishes that include vegetables, fruits, whole grains, low-fat dairy products, and lean protein. Choose items that are boiled, broiled, grilled, or steamed. Stay away from items that are buttered, battered, fried, or served with cream sauce. Items labeled crispy are usually fried, unless stated otherwise. Choose water, low-fat milk, unsweetened iced tea, or other drinks without added sugar. If you want an alcoholic beverage, choose a lower calorie option such as a glass of wine or light beer. Ask for dressings, sauces, and syrups on the side. These are usually high in calories, so you should limit the amount you eat. If you want a salad, choose a garden salad and ask for grilled meats. Avoid extra toppings like maravilla, cheese, or fried items. Ask for the dressing on the side, or ask for olive oil and vinegar or lemon to use as dressing. Estimate how many servings of a food you are given. For example, a serving of cooked rice is cup or about the size of half a baseball. Knowing serving sizes will help you be aware of how much food you are eating at restaurants. The list below tells you how big or small some common portion sizes are based on everyday objects: ?1 oz 4 stacked dice. ?3 oz 1 deck of cards. ?1 tsp 1 . ?1 Tbsp a ping-pong ball. ?2 Tbsp 1 ping-pong ball. ? cup baseball. ?1 cup 1 baseball. Summary Calorie counting means keeping track of how many calories you eat and drink each day. If you eat fewer calories than your body needs, you should lose weight. A healthy amount of weight to lose per week is usually 1 2 lb (0.5 0.9 kg). This usually means reducing your daily calorie intake by 500 750 calories. The number of calories in a food can be found on a Nutrition Facts label. If a food does not have a Nutrition Facts label, try to look up the calories online or ask your dietitian for help. Use your calories on foods and drinks that will fill you up, and not on foods and drinks that will leave you hungry. Use smaller plates, glasses, and bowls to prevent overeating. This information is not intended to replace advice given to you by your health care provider. Make sure you discuss any questions you have with your health care provider. Document Released: 08/22/2006 Document Revised: 05/11/2019 Document Reviewed: 07/22/2017 [employer] Patient Education [employer]. Follow Up Care 02/04/2022 13:28:46 With:Danya Bingham MD, URL, URO Address: When: Unknown [facility] 01-11-2022 Evaluation + Plan note Extrac alexander from: Title:Urodynamic Evaluation * Author:Sonja Bingham MD Date:01/11/22 Patient: MORALES LEE Age: 46 years Sex: Female : 1975 Associated Diagnoses: None Author: Danya Bingham MD Procedure Urodynamic Evaluation procedure General results: Today's results 01/11/2022 9:49 EDT SN - CTm - Patient In Room Time 01/11/2022 9:48 01/11/2022 8:09 EDT SN - Proc - Anesthesia Type Local 01/11/2022 7:57 EDT Consent for Treatment Consent for Treatment . Urodynamic Evaluation findings Findings: post-void residual 68 ml, Detrusor leak point pressure 28 cm H2O, Unable to void. PVR 20 mL on straight cath Leaked throughout filling phase without awareness. Unable to start/stop voiding First filling: Leaked at 103 mL, at Pves 28 cmH20 (no sensory awareness of leak) EMG activity during leak. PDet flat during filling and leaking phases Second trial filling: Leaked 156 mL with a max flow rate of 6 mL/s, PDet max 0 Diagnosis: Intrinsic sphincter deficiency Acontractile detrusor . Impression and Plan Diagnosis Bowel and bladder incontinence ([id number] R32, Billing Diagnosis, Medical). Incontinence without sensory awareness (FCH23-NZ N39.42, Working, Medical). Diagnosis Bowel and bladder incontinence ([id number] R32, Billing Diagnosis, Medical). Incontinence without sensory awareness ([id number]-AF N39.42, Working, Medical). Addendum by Danya Bingham MD on January 11, 2022 10:23 EDT Post procedure diagnosis: Intrinsic sphincter deficiency, acontractile detrusor [facility]05-09-2022 Hospital Discharge instructions Patient Education 01/11/2022 10:22:42 EU - Cystoscopy Discharge Instructions (CUSTOM) Cystoscopy Voiding after the procedure: there may be some pain, burning, urgency, frequency and blood tinged urine following the procedure. These symptoms usually resolve within 2-5 days. Drink the amount of fluid it takes to keep the urine pink to yellow or clear in color. Drinking enough water and fluids will help to ease any discomfort after your procedure. If you are having problems that seem out of the ordinary, please call. If unable to contact your physician and you feel it is an emergency, go to the nearest emergency room or call 911 Diet you may resume your normal diet. Activity you may resume your normal activities Call if you have a fever over 100 degrees. Follow Up Care 01/06/2022 11:41:34 With:Danya Bingham Address: [facility] [address] [phone]- [phone] Business (1) When: Unknown Comments:Call for followup appointment in 2-3 weeks With:Danya Bingham Address:Unknown When: Unknown [facility]05-04-2022 Hospital Discharge instructions Patient Education 01/06/2022 10:27:52 Preventing Cervical Cancer Preventing Cervical Cancer Cervical cancer is cancer that grows on the cervix. The cervix is at the bottom of the uterus. It connects the uterus to the vagina. The uterus is where a baby develops during . Cancer occurs when cells become abnormal and start to grow out of control. Cervical cancer grows slowly and may not cause any symptoms at first. Over time, the cancer can grow deep into the cervix tissue and spread to other areas. If it is found early, cervical cancer can be treated effectively. You can also take steps to prevent this type of cancer. Most cases of cervical cancer are caused by an STI (sexually transmitted infection) called human papillomavirus (HPV). One way to reduce your risk of cervical cancer is to avoid infection with the HPV virus. You can do this by practicing safe sex and by getting the HPV vaccine. Getting regular Pap tests is also important because this can help identify changes in cells that could lead to cancer. Your chances of getting this disease can also be reduced by making certain lifestyle changes. How can I protect myself from cervical cancer? Preventing HPV infection Ask your health care provider about getting the HPV vaccine. If you are 26 years old or younger, you may need to get this vaccine, which is given in three doses over 6 months. This vaccine protects against the types of HPV that could cause cancer. Limit the number of people you have sex with. Also avoid having sex with people who have had many sex partners. Use a latex condom during sex. Getting Pap tests Get Pap tests regularly, starting at age 21. Talk with your health care provider about how often you need these tests. ?Most women who are 21?29 years of age should have a Pap test every 3 years. ?Most women who are 30?65 years of age should have a Pap test in combination with an HPV test every5 years. ?Women with a higher risk of cervical cancer, such as those with a weakened immune system or those who have been exposed to the drug diethylstilbestrol (KIMBERLEE), may need more frequent testing. Making other lifestyle changes Do not use any products that contain nicotine or tobacco, such as cigarettes and e-cigarettes. If you need help quitting, ask your health care provider. Eat at least 5 servings of fruits and vegetables every day. Lose weight if you are overweight. Why are these changes important? These changes and screening tests are designed to address the factors that are known to increase the risk of cervical cancer. Taking these steps is the best way to reduce your risk. Having regular Pap tests will help identify changes in cells that could lead to cancer. Steps can then be taken to prevent cancer from developing. These changes will also help find cervical cancer early. This type of cancer can be treated effectively if it is found early. It can be more dangerous and difficult to treat if cancer has grown deep into your cervix or has spread. In addition to making you less likely to get cervical cancer, these changes will also provide otherhealth benefits, such as the following: ?Practicing safe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 Female, appearing as stated age, dressed in hospital attire, disheveled, long graying hair. Patient had made attempts to eat dinner. Attitude: Calm, communicative, forthright. Behavior: Appropriate eye contact. Motor Activity: No psychomotor agitation or retardation noted. Patient not restless. Gait not assessed. Speech: Regular rate, rhythm, volume and tone, spontaneous, fluent. Mood: Euthymic Affect: Appropriate with full range. Thought Process: Organized, linear, goal directed. Associations are logical. Thought Content: Does not endorse suicidal or homicidal ideation, no delusions elicited. Thought Perception: Does not endorse auditory or visual hallucinations, does not appear to be responding to hallucinatory stimuli. Cognition: Alert, oriented x3. No deficits noted. Adequate fund of knowledge. No deficit in recent and remote memory. No deficits in attention, concentration or language. Insight: Good, as patient recognizes symptoms of illness and need for recommended treatments. Judgment: Fair to limited with respect to decisions regarding suboxone. Appears to generally be able to m (more content not included)...[facility]01-11-2022 NoteHistory of Present Illness: /Lactating: Are You no Are You Currently Breastfeedingno Service: Service: Surgery History Present Illness: HPI: The patient's medical chart was personally reviewed for portions of the history. HPI h/o HTN, C6-7 ACDF, T1 comp fx s/p T11-12 lami c/b worseneing kyphosis s/p 12/2020 L1 transpedic decompression/SPOs/T5-L4 fusion, b/l ulnar neuorpathies, chronic pain on suboxone p/w thoracic kyphosis Reports a ground level fall 2-3 month after her surgery. She has been experiencing left sided radicular pain radiating from her back over her anterolateral thigh to the bottom of her foot. She also has weakness on her left leg. Reports similar but less frequent radicular pain in her right leg. Denies taking any anti-platelet or anticoag meds. Imaging was personally reviewed and demonstrates the following: Lumbar xrays T5-L4 fusion w/ sig kyphotic deformity at lumbosacral junction Past medical history: as above Past surgical history: as above Home medications: reviewed and as listed in electronic health record Allergies: reviewed and as listed in electronic health record Social history: + tobacco, denies alcohol use, history of opiate use on Suboxone Family history: Not pertinent to current presentation 14 point ROS reviewed and negative except as per HPI. Allergies: codeine: Unknown penicillin: Unknown Seroquel: Unknown Medications Prior to Admission: Outpatient Meds have not been reviewed. Physical Exam by System: Constitutional: Obese habitat in no acute distress Eyes: [id number] Head/Neck: atraumatic, normocephalic Respiratory/Thorax: Airway intact, good chest expansion Cardiovascular: normal rate, regular rhythm, peripheral pulses 2+ Gastrointestinal: Non-tender Extremities: No peripheral edema Neurological: NAD, A&Ox3 Cranial Nerves II-XII: PERRL, EOMI, Face symmetric, Facial SILT, Palate/Tongue midline and symmetric, shoulder shrugs symmetric, hearing intact to finger rubs bilaterally Motor: RUE D5, B5, T5, HG5, IO5 LUE D4+, B4+, T4+, HG4+, IO5 RLE HF 4+, KE4+, PF5, DF5 (pain limited) LLE HF 4-, KE4-, PF4, DF5 no dysmetria on finger to nose, no pronator drift Sensation: SILT throughout all extremities DTRS: 1+ Throughout, No Hoffmans or Clonus Psychological: Mood appropriate Skin: Well perfused Assessment and Plan: Assessment: 46 year old with h/o HTN, C6-7 ACDFF, T1 comp fx s/p T11-12 lami c/b worseneing kyphosis s/p 12/2020 L1 transpedic decompression/SPOs/T5-L4 fusion, b/l ulnar neuorpathies p/w thoracic kyphosis Plan T4 floor plan for OR Tuesday med c/s in AM for preop clearance chronic pain c/s in AM for stuart-opeartive suboxone management psych consult COWS regular diet SCD's Attestation: Note Completion: I am a: Resident/Fellow Attending AttestationI saw and evaluated the patient. I personally obtained the schofield and critical portions of the history and physical exam or was physically present for schofield and critical portions performed by the resident/fellow. I reviewed the resident/fellows documentation and discussed the patient with the resident/fellow. I agree with the resident/fellows medical decision making as documented in the note. I personally evaluated the patient [id number] Electronic Signatures: Fidel Maciel (Resident)) (Signed 15-Sep-2021 22:53) Entered: History of Present Illness, Objective, Assessment and Plan, Note Completion Authored: History of Present Illness, Comorbidities, Allergies, Medications Prior to Admission, Objective, Assessment and Plan, Note Completion Lex Frederick) (Signed 16-Sep-2021 10:20) Authored: Note Completion Co-Signer: History of Present Illness, Comorbidities, Allergies, Medications Prior to Admission, Objective, Assessment and Plan, Note Completion Kermit Bashir (Resident)) (Signed 15-Sep-2021 19:24) Authored: History of Present Illness, Comorbidities, Allergies, Medications Prior to Admission, Objective, Assessment and Plan Last Updated: 16-Sep-2021 10:20 by Lex Frederick)[facility]04-23-2021 History of Present illness Narrative* I just had the pleasure of seeing Mrs. Raghav villarreal in the Neurosurgery Spine Clinic at the [facility]. She is a very pleasant 46-year-old female, who recently underwent a L1 Vertbrectomy and T6-L4 Fusion with me on 12/26/2020 and is status post 8 Months out from her surgery. * Patient failure to follow-up after her danya were removed for personal reasons and is seeing us today finally about 8 months from her surgery and has significant her lower back pain and difficulty standing upright along with numbness involving the left lower extremity. She mentions that she fell few times and majority of the symptoms that she has now started following the same. She underwent a CT scan in April at an outside hospital and I recommended her to see me following that but she could not follow-up right after that. * At this point of time she cannot walk at all secondary to excruciating pain in her back. * She continues to have urinary incontinence that she had even before the surgery and has been a chronic symptoms of hers. * Constitutional: No fever or chills * Respiratory: No shortness of breath or wheezing * Musculoskeletal: see HPI above * Neurologic: See HPI above * GENERAL: no apparent distress * EYES: No icterus; extraocular movements intact * NEURO: Neurologically patient is awake alert and oriented X 3 * No obvious cranial nerve deficit. * Strength is 5/5 throughout all motor groups tested. * No pronator drift * Deep tendon reflexes are symmetric throughout. * Gait : Patient cannot even stand upright for even few minutes secondary to significant pain and have a bent forward posture. * Sensory examination is intact to touch and painful stimuli. * AP and lateral x-rays in the sitting position due to difficulty doing an upright x-rays where evaluated personally and shows evidence of a prior T5-L4 instrumented fusion with no evidence of any instrumentation failure within the construct but there is evidence of focal kyphosis at L4-5 level rightbelow the construct secondary to likely posterior ligamentous injury and jumped facet at that levelsuggestive of obvious instability. * CT scan of the pelvis and lumbar spine done at an outside hospital on 04/24/2021 was also reviewed and shows well aligned spine with no evidence of any instrumentation failure. There is evidence of a slight perching of the facets at L4-5 level. * Ms. LEE is a really nice 46-year-old lady who has had significant thoracic hyperkyphosis for whichshe underwent a multilevel osteotomies and a thoracolumbar instrumented fusion with me in December 2020. She did very well with upright films demonstrating remarkable correction of her thoracic kyphosisafter the surgery. She did not followed up with surgery after staple removal and mentioned that shefell few times and when the last time I was able to talk to her she was recommended to follow-up and see me in person to determine the etiology of her fall and rule out any underlying pathology from that but for various personal reasons she was not able to follow-up with me. * She comes today with severe pain and difficulty walking upright and left lower extremity numbness on top of her symptoms of urinary incontinence that is baseline. * I reviewed the x-rays that were done today that shows the presence of obvious instability with focal L4-5 kyphosis likely due to disruption of posterior tension band and ligaments at L4-5 level possibly due to the falls that she sustained which was not very obvious on the CT scan that she underwentin April 2021. * She has left lower extremity numbness but her motor strength is well preserved but due to the pain and instability she cannot walk and I did recommend her to avoid ambulating much and clearly avoid any further wall due to risk of a complete motor weakness in the bilateral lower extremities due to the instability at L4-5 level below the thoracolumbar construct that she has. * There is no obvious bony fracture and it looks like the majority of it is a soft tissue ligamentousinjury with jumped facet at L4-5 level secondary to the trauma. * I discussed with the patient and her the imaging findings and the various symptoms that shehas and the various medical issues that she has including the fact that she has been on Suboxone but recommended surgery due to presence of obvious instability and the risk of complete weakness or par alysis if left untreated. Give him the option of admitting her right away through the ED for possible surgical intervention and stabilization but the patient mentioned that she would want some time to go over all the treatment options and the further course of treatment that I discussed with her before she would proceed with surgery even though she clearly mentioned that she would want to go ahead but but does not want to do it right away. I clearly discussed with her the risk and benefits of that as she would be at risk of motor deficits if there is unstable condition is treated conservatively even though this has been present for few months as she mentions that she has been having symptoms for a while now especially when she fell. * I mentioned that the surgery would consist of extending the fusion distally all the way up to the pelvis to correct the instability involving the spine due to the distal junctional failure secondary to ligamentous injury and jumped facet at L4-5. * I recommended revision surgery with T12-S1 instrumentation with fusion using cellular allograft andpelvic fixation. * I have explained the surgical procedure in detail with expected duration and extent of recovery along risks of surgery that include, but is not limited to bleeding, infection, blood vessel injury or damage,loss of sensation, loss of bladder, bowel or sexual function, nerve injury/damage resulting in weakness/paralysis, malunion, nonunion, CSF leak, brachial plexus injury, peripheral vision blindness, injury to the abdominal contents, failure of implants/fusion, failure to relieve symptoms, recurrent disease, adjacent segment disease, need to reoperate for any reason and general anesthesia reac tion such as stroke, coma, heart attack, delirium, confusion, as well as worsening of preexisted medical conditions and any other unforeseen complication related to unrelated to the spinal procedure per se. * A Shared decision was made to proceed with surgery after involving the patient and her family in the treatment decision-making process. They clearly expressed understanding of possible risks and benefits of surgery and the realistic expectations of surgery along with the fact that the goal of the burch rgery is to improve her overall functioning and quality of life and possible improvement or preventprogression of preexisting neurological deficits and not necessarily 100 % pain relief. The option of continued non-operative management was very clearly discussed as well with the associated risks and benefits and the patient but I clearly recommended against any continued nonoperative intervention due to presence of obvious unstable spinal condition with risk of complete paralysis involving thelower extremities. * The patient agreed to proceed for surgery but she did not want to proceed right away. We would schedule her for surgery in the next few days or so. Considering the various medical conditions that shehas and the urgency of requiring the preoperative clearance and the limitation to do that before adm ission due to the presence of unstable injury and she not being able to walk we will have to admit the patient few days before the surgery to complete her medical work-up including further imaging asnecessary. She would also have to be on Suboxone for about 3 to 5 days before the surgery and I mention her that she should discuss that with her pain management physician provide surgery prescription for the same. * It was a pleasure to participate in Ms. LEE care. * Lex Frederick MD, [facility], [facility] * Director - Minimally Invasive Spine Surgery * [facility] * Silk Opener of Neurological Surgery * [facility] [employer] * [place], [place] * Some of this note was completed using [place] [employer] voice recognition technology and sometimes the software misinterprets words. This may include unintended errors with respect to translation of words, typographical errors or grammar errors which may not have been identified prior to finalization of the chart note. Please take this into account when reading this note. AL-[id number]-[id number] Work Phone: [phone] Reason for referral (narrative)* Reason for Referral: Patient s/p posterior bilateral L1 transpedicular decompression, posterior T7-T8, T8-T9, T9-T10, T0-T11, T11-T12, T12-L1 hutton hernandez osteotomies, Posterior T5-L4 instrumentation and [facility] on 12/26 [facility] Future App[facility]ments Appointment Date:01/07/2022 11:00:00 AM Scheduled Provider: Location:[facility] Appointment Type:Urology CALL PAT FT Appointment Date:01/11/2022 08:00:00 AM Scheduled Provider: Location:[facility] Appointment Type:Urology FT Appointment Date:01/11/2022 09:00:00 AM Scheduled Provider: Location:[facility] Appointment Type:Urology FT [facility] evaluation + [facility]* Neurological: [id number] 5/5 except hg/io4+ble 5/5incision cdiHead/Neck: Ox3, awake, alertBUE 5 prox, HG/IO4+BLE HF/KE/DF/PF/EHL 5 [facility]* Constitutional: in no acute distressSkin: Well perfusedEyes: OU 3RHead/Neck: atraumatic, normocephal icRespiratory/Thorax: airway intact, good chest expansionCardiovascular: normal rate, regular rhythmGastrointestinal: non-tenderNeurological: NAD, [id number] Nerves II-XII: PERRL, EOMI, Face symmetric, Facial SILT, Palate/Tongue midline and symmetric, shoulder shrugs symmetric, hearing intact to finger rubs bilaterallyMotor: RUE D5, B5, T5, HG5, IO5LUE D5, B5, T5, HG5, IO5RLE HF 4+, KE4+, PF4-, DF3LLE HF 4+, KE4+, PF3, DF4-Sensation: SILT throughout all extremitiesPsychological: mood appropriate [facility] Narrative No data available for this section [facility] Discharge instructions* Activity:activity as tolerated. May shower. May not return to school/work until follow-up visit with Dr Frederick Instructions:. May not drive until follow-up visit. No pushing, pulling, or lifting objects greater than 10 pounds until follow-up visit. Weight-bearing Instructions: full weight bearing. * Additional Orders:Additional Instructions: -Do not take any over the counter or prescription NSAID medications for at least three months or until cleared by your Neurosurgeon. These medications include: Motrin, Ibuprofen, Advil, Aleve, Naproxen, Mobic etc.. This will allow for proper and adequate bone fusion. Please call your Neurosurgeon's office if you have any questions. -If you smoke or use products containing nicotine your are advised to stop. Nicotine may interfere with your bone fusion and hinder wound healing. * Call Provider If:Breathing faster than normal. Fever of 100.4 F (38 C) or higher. Chills. Drinking less than normal. Urinating less than normal, over 1 day. Acting very sleepy and difficult to awaken. Vomiting (throwing up) and not able to eat or drink for 12 hours. 3 or more loose, watery bowel movements in 24 hours (diarrhea). Any new concerning symptoms. * Home Care Face to Face Certification:Home Care Services Needed: yesSkilled Disciplines Ordered: RN/DEVELOPMENT COORDINATOR, PT, OTFace to Face Encounter Completed: yesDate of Encounter: [id number] Necessity for Homecare (based on clinical findings): Short term RN needed to monitor for s/s of patient decompensation post discharge, for education regarding changes to medication regimen, and for post operative wound check. PT/OT services needed for evaluation and treatment, establishment of home exercise regimen, and to provide adaptive devices as necessary. Homebound Status: homeboundHomebound Due to: Patient homebound related to exertional fatigue and pain impairing mobility in the postoperative period. Face to Face Completed and Home Care Orders Reviewed: I certify that this patient is under my care. I have reviewed the information included in the face to face and certify that the home care servicesordered are medically necessary for this patient. * - -Patient Instructions:- Call 911 or go directly to the Emergency Room if you have ANY of the following symptoms: 1. Sudden weakness or numbness of the face, arm or leg, especially on one side of the body 2. Sudden difficulty speaking or understanding 3. Sudden trouble seeing in one or both eyes 4. Sudden trouble walking, dizziness, loss of balance or lack of coordination 5. Persistent one-sidedheadache 6. Loss of conscious or decreased conscious, fainting or seizures. * Activity:Activity as tolerated. Increase your activity slowly. Walking is good exercise activity after surgery. Gradually increase the time and distance you walk each day. You may walk as much as is comfortable for you. Pain or discomfort is a guide to cut back on your activity. You may shower immediately after discharge. DO NOT allow direct water spray on your incision. You may ride in a car with your seat belt on. DO NOT participate in contact sports, yard work, or housework that requires bending or twisting at the waist. This includes: laundry, gardening, mowing lawns, vacuuming, ironing, washing dishes, & loading the dryer or disability coordinator until cleared by MD. * Wound Care:Inspect your incision daily for signs of infection: redness, swelling, drainage and fouldischarge. Keep surgical incision open to air. DO NOT soak in a tub or swim until incision is completely healed. This may take approximately 4 weeks. DO NOT scrub or rub the incision. You may gently pat the incision. DO NOT pick off scabs, or old blood from the incision site. The incision should heal naturally on its own. No Lotions, creams, gels or powders. No hair products, conditioner, rubbingalcohol, hydrogen peroxide or ointments on or around your incision. * Medication Instructions:If you were taking medications prior to your surgery and they are not listed on your discharge homegoing instructions medications list, consult your MD before you resume thesemedications. Remember when taking Acetaminophen to NOT exceed 1000 mg per dose or 4000 mg per day. Taking too much Acetaminophen at one time can damage your liver. Call MD if you have any questions about your medications. If you are taking a narcotic pain medication, check to make sure it does NOT contain acetaminophen before taking additional acetaminophen. To prevent constipation while taking narcotic pain medications, ensure that you drink plenty of water, eat fiber rich foods (a good sourceis fruit) and increase activity progressively. * Call Physician If:Call your Neurosurgeon immediately for any questions or concerns regarding the surgical incision. Call your MD or seek immediate medical attention if you experience any of the following symptoms: 1. Fever of 101.5 (38.5 C) or greater 2. Seizures 3. Nausea with vomiting 4. Double, b lurry or loss of vision 5. Confusion 6. Severe headaches that make you nauseous and vomit 7. Drainage or swelling around your incision 8. Trouble speaking 9. Loss of movement or weakness in your armsor legs 10. Trouble controlling your bowels or bladder 11. Fainting or passing out 12. Separation of the incision, or tearing of the incision line 13. Large fluid collection under or around the incision 14. Difficultly swallowing for Cervical patients 15. Swelling, pain, heat or redness in your legs and/or calves. * Follow-Up - Neurosurgeon:Physician/Dept/Service: PopeyeurgeDr Jake davilauled Date/Time: 08-Jan-2021 10:40Location: [facility], [address] [place], [place] Number: [phone]: 2 week postop/wound check visit; Bring Insurance Card and Photo ID [facility] No data available for this section [facility] progress note No data available for this section [facility] reason for referral (narrative) , urinary incontinence, neurogenic bladder, open bladder neck, possible SP tube placement Referred by: Zachery HARKINS, Danya Rhodes [facility] Summary Purpose Family History No Family History Records FoundUnknown Family Member Name Dates Details Medical history unknown: Mot her, Father, Sibling Status:Active Unknown Family Member Name Dates Details Medical history unknown: Mot her, Father, Sibling Status:Active Unknown Family Member Name Dates Details Medical history unknown: Mot her, Father, Sibling Status:Active Unknown Family Member Name Dates Details Medical history unknown: Mot her, Father, Sibling Status:Active Unknown Family Member Name Dates Details Medical history unknown: Mot her, Father, Sibling Status:Active Unknown Family Member Name Dates Details Medical history unknown: Mot her, Father, Sibling Status:Active Unknown Family Member Name Dates Details Medical history unknown: Mot her, Father, Sibling Status:Active Unknown Family Member Name Dates Details Medical history unknown: Mot her, Father, Sibling Status:Active Unknown Family Member Name Dates Details Medical history unknown: Mot her, Father, Sibling Status:Active Unknown Family Member Name Dates Details Medical history unknown: Mot her, Father, Sibling Status:Active Advance Directives No Advanced Directives Records FoundNo Advanced Directives Records FoundNo Advanced Directives Records FoundNo Advanced Directives Records FoundNo Advanced Directives Records FoundNo Advanced Directives Records FoundNo Advanced Directives Records FoundNo Advanced Directives Records FoundNo Advanced Directives Records FoundNo Advanced Directives Records FoundNo Advanced Directives Records Found Chief Complaint FUV Additional Source Comments INFORMATION SOURCE (unrecogn ized section and content) DATE CREATED AUTHOR 06/20/2019 [facility] DATE CREATED AUTHOR AUTHOR'S ORGANIZ ATION 06/20/2019 [facility] DATE CREATED AUTHOR AUTHOR'S ORGANIZ ATION 07/26/2019 [facility] DATE CREATED AUTHOR AUTHOR'S ORGANIZ ATION 12/29/2020 [facility] DATE CREATED AUTHOR AUTHOR'S ORGANIZ ATION 09/16/2021 [facility] DATE CREATED AUTHOR AUTHOR'S ORGANIZ ATION 11/25/2021 [facility] DATE CREATED AUTHOR AUTHOR'S ORGANIZ ATION 12/10/2021 [facility] DATE CREATED AUTHOR AUTHOR'S ORGANIZ ATION 08/06/2022 [facility] DATE CREATED AUTHOR AUTHOR'S ORGANIZ ATION 01/17/2023 [facility] DATE CREATED AUTHOR AUTHOR'S ORGANIZ ATION 03/13/2023 [facility] DATE CREATED AUTHOR AUTHOR'S ORGANIZ ATION 06/09/2023 [facility] <item><item> Privacy Markings (unrecogniz ed section and content) Section Author: Sharmin Eagle PROHIBITION ON REDISCLOSURE OF CONFIDENTIAL INFORMATION This notice accompanies a disclosure of information concerning a client made to you with the consent of such client. Section Author: Sharmin Eagle PROHIBITION ON REDISCLOSURE OF CONFIDENTIAL INFORMATION This notice accompanies a disclosure of information concerning a client made to you with the consent of such client. Care Team (unrecognized sect ion and content) Personnel Name: JATINDER STEWARDIKH Address: [address] [place] [address] Personnel Name: SHAIKH STEWARD Address: Address: [address] [place], [place] [address]HERSON Brynn [address] Personnel Name: SHAIKH STEWARD Address: Address: [address] [place], [place] [address] [address] Personnel Name: SHAIKH STEWARD Address: Address: [address] [place] [address] FOR RECORDS PERTAINING TO PATIENTS WHO ARE OR HAVE BEEN ENROLLED IN A CHEMICAL DEPENDENCY/SUBSTANCEABUSE PROGRAM, SOME INFORMATION MAY BE OMITTED. This clinical summary was aggregated from multiple sources. Caution should be exercised in using it in the provision of clinical care. This summary normalizes information from multiple sources, and as a consequence, information in this document may materially change the coding, format and clinical context of patient data. In addition, data may be omitted in some cases. CLINICAL DECISIONS SHOULD BE BASED ON THE PRIMARY CLINICAL RECORDS. [facility] [facility]. provides no warranty or guarantee of the accuracy or completeness of information in this document.
--- NOTE | 2023-08-27 16:26 | ED_ITS ---
HPI - Female Genitourinary General Chief complaint: Urogenital-Female Stated complaint: citlaly came out Time Seen by Provider: 08/27/23 16:16 Source: patient Mode of arrival: Wheelchair Limitations: no limitations History of Present Illness HPI Narrative: 48-year-old female presents because her Alvares catheter fell out and she needs a new one. Fell out late last night or early this morning. She doesn't have a spec [facility] physical complaints. No fever or vomiting. Related Data Home Medications Medication Instructions Recorded Confirmed buprenorphine 8 mg-naloxone 2 mg 2.5 film sublingual Q24H 03/01/23 03/30/23 sublingual film bupropion HCl 150 mg 24 hr tablet, 150 mg PO DAILY 03/01/23 03/30/23 extended release cyclobenzaprine 10 mg tablet 10 mg PO Q8H 03/01/23 03/01/23 diazepam 5 mg tablet 5 mg PO Q8H PRN anxiety 03/30/23 03/30/23 furosemide 40 mg tablet 40 mg PO DAILY 03/30/23 03/30/23 gabapentin 800 mg tablet 800 mg PO TID 03/30/23 03/30/23 oxybutynin chloride 15 mg 15 mg PO DAILY 03/30/23 03/30/23 tablet,extended release 24 hr potassium bicarbonate-citric acid 20 meq PO BID 03/30/23 03/30/23 20 mEq effervescent tablet (Effer-K) promethazine 12.5 mg tablet 12.5 mg PO TID PRN nausea and 03/30/23 03/30/23 vomiting tizanidine 4 mg tablet 4 mg PO Q8H PRN muscle spasticity 03/30/23 03/30/23 zolpidem 12.5 mg tablet,extended 12.5 mg PO DAILY 03/30/23 03/30/23 release,multiphase Previous Rx's Medication Instructions Recorded levofloxacin 750 mg tablet 750 mg PO DAILY 7 days #7 tabs 03/30/23 Allergies Allergy/AdvReac Type Severity Reaction Status Date / Time codeine Allergy Severe Verified 08/27/23 16:17 Penicillins Allergy Severe Anaphylaxis Verified 08/27/23 16:17 quetiapine [From Seroquel] Allergy Severe Seizure Verified 08/27/23 16:17 Review of Systems ROS Narrative A ten point review of systems is negative except as noted above. PFSH PFSH Social History Smoking status: Current some day smoker Exam Narrative Exam Narrative: Nurses note and vital signs reviewed and patient is not hypoxic. General: The patient appears well and in no apparent distress. Patient is resting comfortably on cart. Skin: Warm, dry, no pallor noted. There is no rash noted. the skin of her feet is dry and flaky. No drainage. Head: Normocephalic, atraumatic Eye: Normal conjunctiva, no drainage Ears, Nose, Mouth, and Throat: oral mucosa is moist. Nares patent. Cardiovascular: Regular Rate and Rhythm Respiratory: Patient is in no distress, no accessory muscle use, lungs are cl ear to auscultation, no wheezing, rales or rhonchi Back: non-tender GI: soft and nontender Musculoskeletal: The patient has no evidence of calf tenderness, no pitting edema, symmetrical pulses noted bilaterally Neurological: A&O, normal speech Psychiatric: Cooperative Constitutional Vital Signs, click to edit/add: Last Vital Signs Temp 98 F 08/27/23 16:18 Pulse 80 08/27/23 16:18 Resp 18 08/27/23 16:18 Pulse Ox 95 08/27/23 16:18 O2 Del Method Room Air 08/27/23 16:18 Course Vital Signs Vital signs: Vital Signs Temperature 98 F 08/27/23 16:18 Pulse Rate 80 08/27/23 16:18 Respiratory Rate 18 08/27/23 16:18 Pulse Oximetry 95 08/27/23 16:18 Oxygen Delivery Method Room Air 08/27/23 16:18 Temperature 98 F 08/27/23 16:18 Pulse Rate 80 08/27/23 16:18 Respiratory Rate 18 08/27/23 16:18 Pulse Oximetry 95 08/27/23 16:18 Oxygen Delivery Method Room Air 08/27/23 16:18 MDM - Female Genitourinary MDM Narrative Medical decision making narrative: Alvares catheter placed. She is able to be released. Differential Diagnosis Differential diagnosis: Likely other (Alvares catheter dislodgment) Discharge Plan Discharge Chief Complaint: Urogenital-Female Clinical Impression: Urinary catheter (Alvares) change required Patient Disposition: Home, Self-Care Time of Disposition Decision: 16:25 Condition: Good Mode of Transportation: Private Vehicle Prescriptions / Home Meds: No Action diazepam 5 mg tablet 5 mg PO Q8H PRN (Reason: anxiety) furosemide 40 mg tablet 40 mg PO DAILY gabapentin 800 mg tablet 800 mg PO TID oxybutynin chloride 15 mg tablet extended release 24hr 15 mg PO DAILY Effer-K 20 mEq tablet, effervescent 20 meq PO BID promethazine 12.5 mg tablet 12.5 mg PO TID PRN (Reason: nausea and vomiting) tizanidine 4 mg tablet 4 mg PO Q8H PRN (Reason: muscle spasticity) zolpidem 12.5 mg tablet,ext release multiphase 12.5 mg PO DAILY Rx Instructions: HS levofloxacin 750 mg tablet 750 mg PO DAILY 7 Days Qty: 7 0RF bupropion HCl 150 mg tablet extended release 24 hr 150 mg PO DAILY buprenorphine-naloxone 8-2 mg film 2.5 film sublingual Q24H cyclobenzaprine 10 mg tablet 10 mg PO Q8H Instructions: Alvares Catheter Placement and Care (ED) Stand Alone Forms: Portal Instructions Referrals: Shaikh Obrien MD [Primary Care Provider] - 1 week
== END 2023-08-27 17:16 | disposition home or self-care (01) ==
PROVIDERS: Emergency Provider Emergency Medicine; PCP Internal Medicine
DX: Z46.6 Encounter for fitting and adjustment of urinary device (principal); Z79.899 Other long term (current) drug therapy; F17.210 Nicotine dependence, cigarettes, uncomplicated
CPT/HCPCS: 51702; 99284

== ENCOUNTER 2023-09-05 22:10 | Emergency (ER) | payer BC, SELFPAY ==
--- OUTSIDE RECORDS SUMMARY | 2023-09-05 22:19 | XMS_ITS | CCD ---
Author Name Unknown Address [address] [place] [address] Organization [facility] Care Team Providers Care Foot Doctor Name Role Phone Required, No Pcp Unavailable Unavailable Lex Frederick Unavailable None, No PCP Unavailable Unavailable Unavailable Unavailable SHAIKH STEWARD Primary Care Physician Yony Aguirre Unavailable Unavailable Neurosurgery Unavailable Unavailable Dr. LEX FREDERICK Admitting Unava ilable Dr. LEX FREDERICK Attending Unava ilable Patient, Unavailable Referring Unavailable Dr. Yony Aguirre Attending [facility] Primary Care Unavailable PÉREZ PATINO Attending Unavailable PÉREZ PATINO Admitting Unavailable DR ABHINAV WEBB Attending Unavailabl e BIN, MENDOSA H Primary Care Unavailable DR ABHINAV WEBB Admitting UnavailDR ABHINAV Kc Consulting UnavailDR CLIF Cotton Admitting Unavailable DR CLIF HUTTON Consulting [facility] Primary Care Unavailable DR CLIF HUTTON Attending Unavailable IOVN AMARO Admitting Unavailable IVON AMARO Consulting Unavailable [...] DR ABHINAV Livingston Attending Unavailabl e [facility], [facility] Primary Care Unavailable REINECK, DR ABHINAV Livingston Admitting Unavailabl e REINECK, DR ABHINAV Livingston Consulting Unavailabl e VETO ., IVON Admitting Unavailable VETO ., IVON Attending Unavailable [facility] Primary Care Unavailable DEBORAH NGUYEN Consulting Unavailable [facility] Primary Care Unavailable REINECK, DR ABHINAV Livingston Admitting Unavailabl e REINECK, DR ABHINAV Livingston Consulting Unavailabl e REINECK, DR ABHINAV Livingston Attending Unavailabl e HAY ., DR LOW Admitting Unavailable [facility] Primary Care Unavailable HAY ., DR LOW Attending Unavailable ZIEBER, DR ENRIQUE Santana Consulting Unavailable HAY ., DR LOW Consulting Unavailable LUE ., DANYA M Admitting Unavailable LUE ., DANYA M Attending Unavailable [facility] Primary Care Unavailable [facility] Primary Care Unavailable LUE ., DANYA M Admitting Unavailable LUE ., DANYA M Consulting Unavailable LUE ., DANYA M Attending Unavailable CANDICE MATTA Consulting Unava RACHEL Oconnor Consulting Unavailable DIAB ., KYRA Admitting Unavailable [facility] Primary Care Unavailable DIAB ., KYRA Attending Unavailable GRECHNY .BONITA Consulting Unavailabl e [facility] Unavailable LUE ., DANYA M Admitting Unavailable LUE ., DANYA M Consulting Unavailable LUE ., DANYA M Attending Unavailable PAY ., DR RODRIGUEZ Admitting Unavailable PAY ., DR RODRIGUEZ Consulting Unavailable [facility] Primary Care Unavailable PAY ., DR RODRIGUEZ Attending Unavailable [facility] Primary Care Unavailable REINECK, DR ABHINAV Livingston Admitting Unavailabl e REINECK, DR ABHINAV Livingston Consulting Unavailabl e REINECK, DR ABHINAV Livingston Attending Unavailabl e KORIN STANLEY Consulting Unavailable [facility] Primary Care Unavailable Lue, Danya M. Attending Unavailable [facility] Primary Care Unavailable Lue, Danya M. Attending Unavailable [facility], MENDOSA Primary Care Unavailable Lue, Danya M. Attending Unavailable [facility] Unavailable Danya Bingham Attending Unavailable [facility] Unavailable Danya Bingham Attending Unavailable [facility] Unavailable Danya Bingham Attending Unavailable [facility] Unavailable Danya Bingham Attending Unavailable Young Hargrove Attending Unavailable [facility] Unavailable Dr. Lex Frederick Attending Unava ilable Allergies Allergy Classification Reported Allergen(s) Allergy Type Date of Onset Reaction(s) Facility Opioid Agonists (1 source) Codeine Drug Allergy Unknown [facility] Penicillins (antibiotic) (1 source) Penicillin Drug Allergy Unknown [facility] QUEtiapine (1 source) QUEtiapine Drug Allergy Unknown [facility] (20 sources) Codeine; Translations: [Codeine] Drug Allergy Hives, Unknown [facility] Work Phone: (20 sources) Penicillins; Translations: [Penicillins] Allergy to drug (finding) Hives, Unknown [facility] Work Phone: (8 sources) Promethazine; Translations: [promethazine] Drug Allergy [facility] (1 source) QUEtiapine Drug Allergy Seizures [facility] (2 sources) Codeine Drug Allergy 3 [facility] (3 sources) gabapentin; Translations: [Neurontin] Drug Allergy [facility] (1 source) Levamisole Drug Allergy [facility] (1 source) Morphine Drug Allergy 0 [facility] (2 sources) Penicillins Drug allergy (disorder) 3 [facility] (1 source) QUEtiapine Drug Allergy 3 [facility] Medications Current Medications Medication Drug Class(es) [...] 2 cap(s), Refills(s) 0, [facility]: [facility] #[id number], 156, cm, 07/16/22 10:58:00 EST, Height/Length Dosing, [...] day(s), # 2 tab(s), Refills(s) 0, Pharmacy: [place] [address] [facility], 156, cm, 01/06/22 10:53:00 EDT, Height/Length Dosing, [...] Allowed docusate sodium 50 mg / sennosides, half-way 8.6 mg oral tablet (2 sources) Start: [...] Daily, # 30 tab(s), Refills(s) 3, Pharmacy: [address], 156, cm, 02/04/22 15:47:00 EDT, Height/Length [...] Daily, # 30 tab(s), Refills(s) 11, [facility]: [facility] #[id number], 156, cm, 07/16/22 10:58:00 EST, Height/Length Dosing, 78, kg, 07/16/22 10:58:00 EST, Weight Dosing Start Date: 10/04/22 Status: Ordered Start: 07-16-2022 take 1 tablet by marlen th once daily oxybutynin 10 mg ER Tab 10 mg = 1 tab(s), Oral, Daily, # 30 tab(s), Refills(s) 11, [facility]: [facility] #[id number], 156, cm, 07/16/22 10:58:00 EST, Height/Length Dosing, 78, kg, 07/16/22 10:58:00 EST, Weight Dosing Start Date: 07/16/22 Status: Ordered Start: 03-10-2022 take 1 tablet by marlen once daily oxybutynin 10 mg ER Tab 10 mg = 1 tab(s), Oral, Daily, # 30 tab(s), Refills(s) 3, [facility]: [facility] [facility], 156, cm, 02/04/22 15:47:00 EDT, Height/Length Dosing, [...] 07-Jan-2021 Generic Substitution Allowed polyethylene glycol 3350 46076 mg powder for oral solution (2 sources) [...] Daily, # 30 cap(s), Refills(s) 0, Pharmacy: [address], 156, cm, 01/07/22 13:43:00 EDT, Height/Length [...] Active Start: 01-05-2016 take 2 capsules by [facility] three times daily Neurontin 100 mg Cap [...] # 2 cap(s), Refills(s) 0, [facility]: [facility] #[id number], 156, cm, 11/26/22 8:15:00 EDT, Height/Length Dosing, [...] Discontinued Generic Substitution Allowed polyethylene glycol 3350 244806 mg / potassium chloride 2970 mg / sodium bicarbonate 6740 mg / sodium chloride 5860 mg / sodium sulfate 98755 mg powder for oral solution (8 sources) [...] spine] Episodic Other aftercare (2 sources) Other fdc (current) drug therapy; Translations: [Other fdc (current) drug therapy] Onset: 06-07-2022 Episodic Other [...] Range Facility ED Note-Physicianon 03-14-20 ED Note-Physician [id number]#1.00CD:127 [facility] ED Note-Physicianon 01-23-20 ED Note-Physician [id number]#1.00CD:127 [facility] ED Note-Physician [id number]#1.00CD:127 Normal [facility] Lab Reportson 01-22-2023 Lab Reports [id number]#1.00CD:127 Normal [facility] Patient Correspondenceon Patient Correspondence [id number]#[id number]:127 Normal [facility] CULTURE URINEon 01-16-2023 CULTURE URINE Isolate 1 [...] F Nitrofurantoin <=16 S F Normal [facility] Comment on above: Performed By: #### U MICRO, ERUR #### [facility] [address] [place] [address] Dr. Alfredo Lizama CBC AUTO DIFFon 01-13-2023 BASO # 0.1 103/ul Normal 0.0-0.1 [facility] Comment on above: Performed By: #### U MICRO, ERUR #### [facility] [address] [address] [address] Alfredo Lizama Basophils/100 WBC (Bld) 0.7 % Normal 0.2-2.0 [facility] Comment on above: Performed By: #### U MICRO, ERUR #### [facility] [address] [address] [address] Alfredo Lizama EO # 0.3 103/ul Normal 0.0-0.7 [facility] Comment on above: Performed By: #### U MICRO, ERUR #### [facility] [address] [address] [address] Alfredo Lizama Eosinophils/100 WBC (Bld) 3.2 % Normal 0.9-7.0 [facility] Comment on above: Performed By: #### U MICRO, ERUR #### [facility] [address] [place] [address] Dr. Alfredo Lizama Erythrocyte distribution width (RBC) [Ratio] 13.0 % Normal 11.0-15.0 [facility] Comment on above: Performed By: #### U MICRO, ERUR #### [facility] [address] [place] [address] Dr. Alfredo Lizama Hematocrit (Bld) [Volume fraction] 43.2 % Normal 36.0-48.0 [facility] Comment on above: Performed By: #### U MICRO, ERUR #### [facility] [address] [place] [address] Dr. Alfredo Lizama Hemoglobin (Bld) [Mass/Vol] 14.1 g/dL Normal 12.0-16.0 [facility] Comment on above: Performed By: #### U MICRO, ERUR #### [facility] [address] [place] [address] Dr. Alfredo Lizama IG # 0.02 10e3/ul Normal 0.00-0.03 [facility] Comment on above: Performed By: #### U MICRO, ERUR #### [facility] [address] [place] [address] Dr. Alfredo Lizama IG % 0.2 % Normal 0.0-0.5 [facility] Comment on above: Performed By: #### U MICRO, ERUR #### [facility] [address] [place] [address] Dr. Alfredo Lizama LYMPH # 3.0 103/ul Normal 1.2-3.8 [facility] Comment on above: Performed By: #### U MICRO, ERUR #### [facility] [address] [place] [address] Dr. Alfredo Lizama Lymphocytes/100 WBC (Bld) 35.6 % Normal 20.5-60.0 [facility] Comment on above: Performed By: #### U MICRO, ERUR #### [facility] [address] [place] [address] Dr. Alfredo Lizama MANUAL DIFF REQ NO Normal [facility] Comment on above: Performed By: #### U MICRO, ERUR #### [facility] [address] [place] [address] Dr. Alfredo Lizama MCH (RBC) [Entitic mass] 29.4 pg Normal 26.7-34.0 [facility] Comment on above: Performed By: #### U MICRO, ERUR #### [facility] [address] [place] [address] Dr. Alfredo Lizama MCHC (RBC) [Mass/Vol] 32.6 g/dL Normal 29.9-35.2 [facility] Comment on above: Performed By: #### U MICRO, ERUR #### [facility] [address] [place] [address] Dr. Alfredo Lizama MCV (RBC) [Entitic vol] 90.0 fL Normal 81.0-99.0 [facility] Comment on above: Performed By: #### U MICRO, ERUR #### [facility] [address] [place] [address] Dr. Alfredo Lizama MONO # 0.4 103/ul Normal 0.3-0.8 [facility] Comment on above: Performed By: #### U MICRO, ERUR #### [facility] [address] [place] [address] Dr. Alfredo Lizama Monocytes/100 WBC (Bld) 4.8 % Normal 1.7-12.0 [facility] Comment on above: Performed By: #### U MICRO, ERUR #### [facility] [address] [place] [address] Dr. Alfredo Lizama NEUT # 4.7 103/ul Normal 1.4-6.5 [facility] Comment on above: Performed By: #### U MICRO, ERUR #### [facility] [address] [place] [address] Dr. Alfredo Lizama Neutrophils/100 WBC (Bld) 55.5 % Normal 43.0-75.0 [facility] Comment on above: Performed By: #### U MICRO, ERUR #### [facility] [address] [place] [address] Dr. Alfredo Lizama Platelet mean volume (Bld) [Entitic vol] 9.5 fL Normal 9.5-13.5 [facility] Comment on above: Performed By: #### U MICRO, ERUR #### [facility] [address] [place] [address] Dr. Aflredo Lizama PLT 267 103/ul Normal 150-450 [facility] Comment on above: Performed By: #### U MICRO, ERUR #### [facility] [address] [place] [address] Dr. Alfredo Lizama RBC 4.80 106/ul Normal 4.20-5.40 [facility] Comment on above: Performed By: #### U MICRO, ERUR #### [facility] [address] [place] [address] Dr. Alfredo Lizama WBC 8.5 103/ul Normal 4.0-11.0 [facility] Comment on above: Performed By: #### U MARCY, ERUR #### [facility] [address] [place] [address] Dr. Alfredo Lizama ER URINE PROFILEon 3 Bilirubin Ql (U) Negative Normal NEGATIVE [facility] Comment on above: Performed By: #### FER CHAVESICRO #### [facility] [address] [place] [address] Dr. Alfredo Lizama Clarity (U) CLOUDY Abnormal CLEAR [facility] Comment on above: Performed By: #### CHINMAY CHAVESRO #### [facility] [address] [place] [address] Dr. Alfredo Lizama Color (U) YELLOW Normal YELLOW [facility] Comment on above: Performed By: #### CHINMAY CHAVESRO #### [facility] [address] [place] [address] Dr. Alfredo LÓPEZD A micrscopic examina tion will be performed if indicated. Normal [facility] Comment on above: Performed By: #### FER CHAVESICRO #### [facility] [address] [place] [address] Dr. Alfredo Lizama Glucose Ql (U) Negative Normal NEGATIVE [facility] Comment on above: Performed By: #### Jacque ESTRADA UMICRO #### [facility] [address] [place] [address] Dr. Alfredo Lizama Hemoglobin Ql (U) MODERATE Abnormal NEGATIVE [facility] Comment on above: Performed By: #### E SEAN, UMICRO #### [facility] [address] [place] [address] Dr. Alfredo Lizama Ketones Ql (U) TRACE Abnormal NEGATIVE [facility] Comment on above: Performed By: #### Jacque ESTRADA UMICRO #### [facility] [address] [place] [address] Dr. Alfredo Lizama LEUKOCYTES SMALL Abnormal NEGATIVE [facility] Comment on above: Performed By: #### Jacque ESTRADA UMICRO #### [facility] [address] [place] [address] Dr. Alfredo Lizama Nitrite Ql (U) Negative Normal NEGATIVE [facility] Comment on above: Performed By: #### Jacque ESTRADA UMICRO #### [facility] [address] [place] [address] Dr. Alfredo Lizama pH (U) 8.0 [pH] Normal 5-9 [facility] Comment on above: Performed By: #### Jacque ESTRADA UMICRO #### [facility] [address] [place] [address] Dr. Alfredo Lizama Protein (U) [Mass/Vol] 100 mg/dL Abnormal NEGATIVE/ TRACE [facility] Comment on above: Performed By: #### Jacque ESTRADA UMICRO #### [facility] [address] [place] [address] Dr. Alfredo Lizama SPEC GRAVITY 1.015 Normal 1.005-<=1.0 25 [facility] Comment on above: Performed By: #### Jacque ESTRADA UMICRO #### [facility] [address] [place] [address] Dr. Alfredo Lizama UR MICRO IND INDICATED Normal [facility] Comment on above: Performed By: #### Jacque ESTRADA UMICRO #### [facility] [address] [place] [address] Dr. Alfredo Lizama Urobilinogen Qn (U) 1.0 {Tesha'U}/dL Normal 0.2 - 1. 0 [facility] Comment on above: Performed By: #### E RURFERICRO #### [facility] [address] [place] [address] Dr. Alfredo Lizama PROF CHEM 8 (BAS METB)on Anion gap [Moles/Vol] 8.4 mmol/L Normal [facility] Comment on above: Performed By: #### U MICRO, ERUR #### [facility] [address] [place] [address] Dr. Alfredo Lizama Calcium [Mass/Vol] 8.7 mg/dL Normal 8.5-10.1 [facility] Comment on above: Performed By: #### U MICRO, ERUR #### [facility] [address] [place] [address] Dr. Alfredo Lizama Chloride [Moles/Vol] 107 mmol/L Normal 98-107 [facility] Comment on above: Performed By: #### U MICRO, ERUR #### [facility] [address] [place] [address] Dr. Alfredo Lizama CO2 [Moles/Vol] 28.3 mmol/L Normal 21.0-32.0 [facility] Comment on above: Performed By: #### U MICRO, ERUR #### [facility] [address] [place] [address] Dr. Alfredo Lizama Creatinine [Mass/Vol] 0.70 mg/dL Normal 0.55-1.02 [facility] Comment on above: Performed By: #### U MICRO, ERUR #### [facility] [address] [place] [address] Dr. Alfredo Lizama EGFR-AF SAMOAN >60 Normal >=60 [facility] Comment on above: Performed By: #### U MICRO, ERUR #### [facility] [address] [place] [address] Dr. Alfredo Lizama EGFR-NON AF SAMOAN >60 Normal >=60 [facility] Comment on above: Performed By: #### U MICRO, ERUR #### [facility] [address] [place] [address] Dr. Alfredo Lizama Glucose [Mass/Vol] 97 mg/dL Normal 74-106 [facility] Comment on above: Performed By: #### U MICRO, ERUR #### [facility] [address] [place] [address] Dr. Alfredo Lizama Potassium [Moles/Vol] 3.7 mmol/L Normal 3.5-5.1 [facility] Comment on above: Performed By: #### U MICRO, ERUR #### [facility] [address] [place] [address] Dr. Alfredo Lizama Sodium [Moles/Vol] 140 mmol/L Normal 136-145 [facility] Comment on above: Performed By: #### U MICRO, ERUR #### [facility] [address] [place] [address] Dr. Alfredo Lizama Urea nitrogen [Mass/Vol] 7.0 mg/dL Normal 7.0-18.0 [facility] Comment on above: Performed By: #### U MICRO, ERUR #### [facility] [address] [place] [address] Dr. Alfredo Lizama Urea nitrogen/Creatinine [Mass ratio] 10.0 mg/mg Normal [facility] Comment on above: Performed By: #### U MICRO, ERUR #### [facility] [address] [place] [address] Dr. Alfredo Lizama URINE MICROSCOPIC ONLYon AMORPHOUS CRYSTALS FEW Normal [facility] Comment on above: Performed By: #### CHINMAY CHAVESRO #### [facility] [address] [place] [address] Dr. Alfredo Lizama BACTERIA LARGE Abnormal NONE SEEN [facility] Comment on above: Performed By: #### E SEAN UMICRO #### [facility] [address] [place] [address] Dr. Alfredo Lizama Bacteria identified Cx Nom (U) INDICATED Normal [facility] Comment on above: Performed By: #### Jacque ESTRADA UMICRO #### [facility] [address] [place] [address] Dr. Alfredo Lizama CAST NONE SEEN Normal NONE SEEN [facility] Comment on above: Performed By: #### Jacque ESTRADA UMICRO #### [facility] [address] [place] [address] Dr. Alfredo Lizama Crystals LM Nom (Urine sed) SEEN Abnormal NONE SEEN [facility] Comment on above: Performed By: #### Jacque ESTRADA UMICRO #### [facility] [address] [place] [address] Dr. Alfredo Lizama Epithelial cells LM Ql (Urine sed) RARE Normal NONE SEEN /RARE [facility] Comment on above: Performed By: #### Jacque ESTRADA UMICRO #### [facility] [address] [place] [address] Dr. Alfredo Lizama MUCOUS NONE SEEN Normal NONE SEEN [facility] Comment on above: Performed By: #### Jacque ESTRADA UMICRO #### [facility] [address] [place] [address] Dr. Alfredo Lizama RBC 2-5 Abnormal 0-2 [facility] Comment on above: Performed By: #### Jacque ESTRADA UMICRO #### [facility] [address] [place] [address] Dr. Alfredo Lizama TRIPLE PHOS CRYSTALS FEW Normal [facility] Comment on above: Performed By: #### Jacque ESTRADA UMICRO #### [facility] [address] [place] [address] Dr. Alfredo Lizama WBC 75-100 Abnormal NONE SEEN [facility] Comment on above: Performed By: #### Jacque ESTRADA UMICRO #### [facility] [address] [place] [address] Dr. Alfredo Lizama [facility] (Inserted Image. Shelly ble to display) January 10, 2023 MORALES LEE [address] [place] [address] MORALES LEE 1975 Dear Morales, I am corresponding with you by certified mail because of repeat non compliance. You missed your catheter exchange appointment on 12/31/22. It is recommended your Alvares catheter be exchanged every 4 weeks to prevent encrustation and infection. Also you were referred to Dr Zhang at [facility] for further evaluation regarding your [...] [facility] [address], [place] [address] Normal [facility] Lab Reportson 12-29-2022 Lab Reports [id number]#[id number]:127 Normal [facility] Lab Reports [id number]:127 Normal [facility] Lab Reports [id number]#1.00CD:127 Normal [facility] CULTURE URINEon 12-25-2022 CULTURE URINE Isolate 1 [...] Trimethoprim/Sulfamethoxazo le <=20 S F Normal [facility] Comment on above: Performed By: #### U MICRO, ERUR #### [facility] [address] [place] [address] Dr. Alfredo Lizama Retail - Clinical Noteon Retail - Clinical Note [id number]#[id number]:127 Normal [facility] Patient Educationon 11-27-19 23 Patient Education [...] Reviewed: 10/01/2017 Else[employer] Patient Education ? 2019 [place] [facility] Retail - Clinical Noteon Retail - Clinical Note [id number]:127 Normal [facility] Urology Office/Clinic Noteon 11-26-2022 Urology Office/Clinic Note [...] with debris. Calcified catheter tip. New 18 Trin[place] two-way Alvares catheter inserted without difficulty. 15cc [...] understands and agrees with plan. -Refer to [place] for possible SP catheter placement and/or bladder [...] as ab (more content not included)... Normal [facility] Comment on above: Result Comment: Elec tronically Signed By: Zachery HARKINS, Danya Rhodes\.br\Date and Time Signed: 11/26/22 08:53 EDT\.br\Electronically Co-Signed By: Yari Barron\.br\Date and Time Co-Signed: 11/26/22 08:44 EDT ED Note-Physicianon 11-12-19 ED Note-Physician [id number]:127 Normal [facility] AMYLASEon 11-09-2022 Amylase [Catalytic activity/Vol] 14 U/L Critically low 25-115 [facility] Comment on above: Performed By: #### U MICRO, ERUR #### [facility] [place] [facility] [address] [place] [address] Dr. Alfredo Lizama CBC AUTO DIFFon 11-09-2022 BASO # 0.1 103/ul Normal 0.0-0.1 [facility] Comment on above: Performed By: #### U MICRO, ERUR #### [facility] [place] [facility] [address] [place] [address] Dr. Alfredo Lizama Basophils/100 WBC (Bld) 0.8 % Normal 0.2-2.0 [facility] Comment on above: Performed By: #### U MICRO, ERUR #### [facility] [place] [facility] [address] [place] [address] Dr. Alfredo Lizama EO # 0.2 103/ul Normal 0.0-0.7 [facility] [place] [facility] Comment on above: Performed By: #### U MICRO, ERUR #### [facility] [place] [facility] [address] [place] [address] Dr. Alfredo Lizama Eosinophils/100 WBC (Bld) 2.5 % Normal 0.9-7.0 [facility] Comment on above: Performed By: #### U MICRO, ERUR #### [facility] [place] [facility] [address] [place] [address] Dr. Alfredo Lizama Erythrocyte distribution width (RBC) [Ratio] 12.7 % Normal 11.0-15.0 [facility] Comment on above: Performed By: #### U MICRO, ERUR #### [facility] [place] [facility] [address] [place] [address] Dr. Alfredo Lizama Hematocrit (Bld) [Volume fraction] 46.3 % Normal 36.0-48.0 [facility] Comment on above: Performed By: #### U MICRO, ERUR #### [facility] [place] [facility] [address] [place] [address] Dr. Alfredo Lizama Hemoglobin (Bld) [Mass/Vol] 15.9 g/dL Normal 12.0-16.0 [facility] [place] [facility] Comment on above: Performed By: #### U MICRO, ERUR #### [facility] [place] [facility] [address] [place] [address] Dr. Alfredo Lizama IG # 0.02 10e3/ul Normal 0.00-0.03 [facility] [place] [facility] Comment on above: Performed By: #### U MICRO, ERUR #### [facility] [place] [facility] [address] [address] [address] Alfredo Lizama IG % 0.2 % Normal 0.0-0.5 [facility] [place] [facility] Comment on above: Performed By: #### U MICRO, ERUR #### [facility] [place] [facility] [address] [address] [address] Alfredo Lizama LYMPH # 2.6 103/ul Normal 1.2-3.8 [facility] [place] [facility] Comment on above: Performed By: #### U MICRO, ERUR #### [facility] [place] [facility] [address] [address] [address] Alfredo Lizama Lymphocytes/100 WBC (Bld) 31.3 % Normal 20.5-60.0 [facility] Comment on above: Performed By: #### U MICRO, ERUR #### [facility] [place] [facility] [address] [place] [address] Dr. Alfredo Lizama MANUAL DIFF REQ NO Normal [facility] Comment on above: Performed By: #### U MICRO, ERUR #### [facility] [place] [facility] [address] [place] [address] Dr. Alfredo Lizama MCH (RBC) [Entitic mass] 29.3 pg Normal 26.7-34.0 [facility] Comment on above: Performed By: #### U MICRO, ERUR #### [facility] [place] [facility] [address] [place] [address] Dr. Alfredo Lizama MCHC (RBC) [Mass/Vol] 34.3 g/dL Normal 29.9-35.2 [facility] [place] [facility] Comment on above: Performed By: #### U MICRO, ERUR #### [facility] [place] [facility] [address] [address] [address] Alfredo Lizama MCV (RBC) [Entitic vol] 85.4 fL Normal 81.0-99.0 [facility] Comment on above: Performed By: #### U MICRO, ERUR #### [facility] [place] [facility] [address] [address] [address] Alfredo Lizama MONO # 0.6 103/ul Normal 0.3-0.8 [facility] Comment on above: Performed By: #### U MICRO, ERUR #### [facility] [place] [facility] [address] [address] [address] Alfredo Lizama Monocytes/100 WBC (Bld) 6.6 % Normal 1.7-12.0 [facility] Comment on above: Performed By: #### U MICRO, ERUR #### [facility] [place] [facility] [address] [place] [address] Dr. Alfredo Lizama NEUT # 4.9 103/ul Normal 1.4-6.5 [facility] Comment on above: Performed By: #### U MICRO, ERUR #### [facility] [place] [facility] [address] [place] [address] Dr. Alfredo Lizama Neutrophils/100 WBC (Bld) 58.6 % Normal 43.0-75.0 [facility] Comment on above: Performed By: #### U MICRO, ERUR #### [facility] [place] [facility] [address] [place] [address] Dr. Alfredo Lizama Platelet mean volume (Bld) [Entitic vol] 9.5 fL Normal 9.5-13.5 [facility] Comment on above: Performed By: #### U MICRO, ERUR #### [facility] [place] [facility] [address] [place] [address] Dr. Alfrdeo Lizama PLT 273 103/ul Normal 150-450 [facility] [place] [facility] Comment on above: Performed By: #### U MICRO, ERUR #### [facility] [place] [facility] [address] [place] [address] Dr. Alfredo Lizama RBC 5.42 106/ul Critically high 4.20-5.40 [facility] [place] [facility] Comment on above: Performed By: #### U MICRO, ERUR #### [facility] [place] [facility] [address] [place] [address] Dr. Alfredo Lizama WBC 8.4 103/ul Normal 4.0-11.0 [facility] [place] [facility] Comment on above: Performed By: #### U MICRO, ERUR #### [facility] [place] [facility] [address] [place] [address] Dr. Alfredo Lizama CULTURE URINEon 11-09-2022 CULTURE URINE Culture Observations : MODERATE GROWTH OF MIXED GENITAL ROSANNA. NO POTENTIAL PATHOGENS SEEN. Normal [facility] [place] [facility] Comment on above: Performed By: #### U MICRO, ERUR #### [facility] [place] [facility] [address] [address] [address] Alfredo SANDY URINE PROFILEon 3 Bilirubin Ql (U) Negative Normal NEGATIVE [facility] [place] [facility] Comment on above: Performed By: #### U MICRO, ERUR #### [facility] [place] [facility] [address] [address] [address] Alfredo Lizama Clarity (U) CLEAR Normal CLEAR [facility] [place] [facility] Comment on above: Performed By: #### U MICRO, ERUR #### [facility] [place] [facility] [address] [address] [address] Alfredo Lizama Color (U) LT. YELLOW Normal YELLOW [facility] [place] [facility] Comment on above: Performed By: #### U MICRO, ERUR #### [facility] [place] [facility] [address] [place] [address] Dr. Alfredo Lizama ERUAHD A micrscopic examina tion will be performed if indicated. Normal [facility] [place] [facility] Comment on above: Performed By: #### U MICRO, ERUR #### [facility] [place] [facility] [address] [place] [address] Dr. Alfredo Lizama Glucose Ql (U) Negative Normal NEGATIVE [facility] [place] [facility] Comment on above: Performed By: #### U MICRO, ERUR #### [facility] [place] [facility] [address] [address] [address] Alfredo Lizama Hemoglobin Ql (U) MODERATE Abnormal NEGATIVE [facility] [place] [facility] Comment on above: Performed By: #### U MICRO, ERUR #### [facility] [place] [facility] [address] [address] [address] Alfredo Lizama Ketones Ql (U) Negative Normal NEGATIVE [facility] Comment on above: Performed By: #### U MICRO, ERUR #### [facility] [place] [facility] [address] [address] [address] Alfredo Lizama LEUKOCYTES LARGE Abnormal NEGATIVE [facility] [place] [facility] Comment on above: Performed By: #### U MICRO, ERUR #### [facility] [place] [facility] [address] [address] [address] Alfredo Lizama Nitrite Ql (U) Negative Normal NEGATIVE [facility] Comment on above: Performed By: #### U MICRO, ERUR #### [facility] [place] [facility] [address] [place] [address] Dr. Alfrdeo Lizama pH (U) 7.0 [pH] Normal 5-9 [facility] Comment on above: Performed By: #### U MICRO, ERUR #### [facility] [place] [facility] [address] [place] [address] Dr. Alfredo Lizama SPEC GRAVITY 1.015 Normal 1.005-<=1.0 25 [facility] Comment on above: Performed By: #### U MICRO, ERUR #### [facility] [place] [facility] [address] [place] [address] Dr. Alfredo Lizama UA PROTEIN Negative Normal NEGATIVE/ TRACE [facility] Comment on above: Performed By: #### U MICRO, ERUR #### [facility] [place] [facility] [address] [place] [address] Dr. Alfredo Lizama UR MICRO IND INDICATED Normal [facility] Comment on above: Performed By: #### U MICRO, ERUR #### [facility] [place] [facility] [address] [place] [address] Dr. Alfredo Lizama Urobilinogen Qn (U) 0.2 {Tesha'U}/dL Normal 0.2 - 1. 0 [facility] Comment on above: Performed By: #### U MICRO, ERUR #### [facility] [place] [facility] [address] [place] [address] Dr. Alfredo Lizama LIPASEon 11-09-2022 Lipase [Catalytic activity/Vol] 34.0 U/L Critically low 73.0-393.0 [facility] Comment on above: Performed By: #### U MICRO, ERUR #### [facility] [place] [facility] [address] [place] [address] Dr. Alfredo Lizama PROF 14(COMP METB)on 023 Albumin [Mass/Vol] 4.0 g/dL Normal 3.4-5.0 [facility] Comment on above: Performed By: #### U MICRO, ERUR #### [facility] [place] [facility] [address] [place] [address] Dr. Alfredo Lizama Albumin/Globulin [Mass ratio] 1.0 {ratio} Normal [facility] Comment on above: Performed By: #### U MICRO, ERUR #### [facility] [place] [facility] [address] [address] [address] Alfredo Lizama ALP [Catalytic activity/Vol] 206 U/L Critically high 46-116 [facility] Comment on above: Performed By: #### U MICRO, ERUR #### [facility] [place] [facility] [address] [address] [address] Alfreod Lizama ALT [Catalytic activity/Vol] 53 U/L Normal 14-59 [facility] [place] [facility] Comment on above: Performed By: #### U MICRO, ERUR #### [facility] [place] [facility] [address] [place] [address] Dr. Alfredo Lizama Anion gap [Moles/Vol] 14.5 mmol/L Normal [facility] Comment on above: Performed By: #### U MICRO, ERUR #### [facility] [place] [facility] [address] [place] [address] Dr. Alfredo Lizama AST [Catalytic activity/Vol] 55 U/L Critically high 15-37 [facility] Comment on above: Performed By: #### U MICRO, ERUR #### [facility] [place] [facility] [address] [place] [address] Dr. Alfredo Lizama Bilirubin [Mass/Vol] 0.7 mg/dL Normal 0.2-1.0 [facility] Comment on above: Performed By: #### U MICRO, ERUR #### [facility] [place] [facility] [address] [place] [address] Dr. Alfredo Lizama Calcium [Mass/Vol] 9.0 mg/dL Normal 8.5-10.1 [facility] [place] [facility] Comment on above: Performed By: #### U MICRO, ERUR #### [facility] [place] [facility] [address] [place] [address] Dr. Alfredo Lizama Chloride [Moles/Vol] 100 mmol/L Normal 98-107 [facility] [place] [facility] Comment on above: Performed By: #### U MICRO, ERUR #### [facility] [place] [facility] [address] [place] [address] Dr. Alfredo Lizama CO2 [Moles/Vol] 28.3 mmol/L Normal 21.0-32.0 [facility] Comment on above: Performed By: #### U MICRO, ERUR #### [facility] [place] [facility] [address] [address] [address] Alfredo Lizama Creatinine [Mass/Vol] 0.65 mg/dL Normal 0.55-1.02 [facility] Comment on above: Performed By: #### U MICRO, ERUR #### [facility] [place] [facility] [address] [place] [address] Dr. Alfredo Lizama EGFR-AF SAMOAN >60 Normal >=60 [facility] Comment on above: Performed By: #### U MICRO, ERUR #### [facility] [place] [facility] [address] [place] [address] Dr. Alfredo Lizama EGFR-NON AF SAMOAN >60 Normal >=60 [facility] Comment on above: Performed By: #### U MICRO, ERUR #### [facility] [place] [facility] [address] [address] [address] Alfredo Lizama Globulin (S) [Mass/Vol] 3.9 g/dL Normal [facility] Comment on above: Performed By: #### U MICRO, ERUR #### [facility] [place] [facility] [address] [address] [address] Alfredo Lizama Glucose [Mass/Vol] 134 mg/dL Critically high 74-106 [facility] Comment on above: Performed By: #### U MICRO, ERUR #### [facility] [place] [facility] [address] [address] [address] Alfredo Lizama Potassium [Moles/Vol] 3.8 mmol/L Normal 3.5-5.1 [facility] Comment on above: Performed By: #### U MICRO, ERUR #### [facility] [place] [facility] [address] [address] [address] Alfredo Lizama Protein [Mass/Vol] 7.9 g/dL Normal 6.4-8.2 [facility] [place] [facility] Comment on above: Performed By: #### U MICRO, ERUR #### [facility] [place] [facility] [address] [address] [address] Alfredo Lizama Sodium [Moles/Vol] 139 mmol/L Normal 136-145 [facility] [place] [facility] Comment on above: Performed By: #### U MICRO, ERUR #### [facility] [place] [facility] [address] [address] [address] Alfredo Lizama Urea nitrogen [Mass/Vol] 7.0 mg/dL Normal 7.0-18.0 [facility] [place] [facility] Comment on above: Performed By: #### U MICRO, ERUR #### [facility] [place] [facility] [address] [place] [address] Dr. Alfredo Lizama Urea nitrogen/Creatinine [Mass ratio] 10.7 mg/mg Normal [facility] [place] [facility] Comment on above: Performed By: #### U MICRO, ERUR #### [facility] [place] [facility] [address] [place] [address] Dr. Alfredo Lizama URINE MICROSCOPIC ONLYon BACTERIA TRACE Abnormal NONE SEEN [facility] [place] [facility] Comment on above: Performed By: #### U MICRO, ERUR #### [facility] [place] [facility] [address] [place] [address] Dr. Alfredo Lizama Bacteria identified Cx Nom (U) INDICATED Normal [facility] [place] [facility] Comment on above: Performed By: #### U MICRO, ERUR #### [facility] [place] [facility] [address] [place] [address] Dr. Alfredo Lizama CAST NONE SEEN Normal NONE SEEN [facility] [place] [facility] Comment on above: Performed By: #### U MICRO, ERUR #### [facility] [place] [facility] [address] [place] [address] Dr. Alfredo Lizama Crystals LM Nom (Urine sed) NONE SEEN Normal NONE SEEN [facility] [place] [facility] Comment on above: Performed By: #### U MICRO, ERUR #### [facility] [place] [facility] [address] [address] [address] Alfredo Lizama Epithelial cells LM Ql (Urine sed) FEW Abnormal NONE SEEN /RARE [facility] [place] [facility] Comment on above: Performed By: #### U MICRO, ERUR #### [facility] [place] [facility] [address] [place] [address] Dr. Alfredo Lizama MUCOUS NONE SEEN Normal NONE SEEN [facility] Comment on above: Performed By: #### U MICRO, ERUR #### [facility] [place] [facility] [address], [place] [address] Dr. Alfredo Lizama RBC 20-50 Abnormal 0-2 [facility] [place] [facility] Comment on above: Performed By: #### U MICRO, ERUR #### [facility] [place] [facility] [address], [place] [address] Dr. Alfredo Lizama WBC 20-50 Abnormal NONE SEEN [facility] [place] [facility] Comment on above: Performed By: #### U MICRO, ERUR #### [facility] [place] [facility] [address] [address] [address] Alfredo Lizama XR ABD FLAT_UPon 11-09-2022 [...] ENRIQUE LOWE Date: 2022-11-09 11:06 Normal [facility] ED Note-Physicianon 11-06-19 ED Note-Physician [id number]:127 Normal [facility] Lab Reportson 11-05-2022 Lab Reports [id number]#[id number]:127 Normal [facility] CULTURE URINEon 10-18-2022 CULTURE URINE Isolate 1 [...] Trimethoprim/Sulfamethoxazo le <=10 S F Normal [facility] Comment on above: Performed By: #### AUTUMN BREWER #### [facility] [place] [facility] [address] [place] [address] Dr. Alfredo Lizama Retail - Clinical Noteon Retail - Clinical Note [id number]:127 Normal [facility] ER URINE PROFILEon 3 Bilirubin Ql (U) Negative Normal NEGATIVE [facility] Comment on above: Performed By: #### LINDA CHAVES #### [facility] [place] [facility] [address] [place] [address] Dr. Alfredo Lizama Clarity (U) CLEAR Normal CLEAR [facility] Comment on above: Performed By: #### CHINMAY CHAVESRO #### [facility] [place] [facility] [address] [place] [address] Dr. Alfredo Lizama Color (U) YELLOW Normal YELLOW [facility] Comment on above: Performed By: #### CHINMAY CHAVESRO #### [facility] [place] [facility] [address] [place] [address] Dr. Alfredo RAYMUNDO A micrscopic examina tion will be performed if indicated. Normal [facility] Comment on above: Performed By: #### FER CHAVESICRO #### [facility] [place] [facility] [address] [place] [address] Dr. Alfredo Lizama Glucose Ql (U) Negative Normal NEGATIVE [facility] Comment on above: Performed By: #### Jacque ESTRADA UMICRO #### [facility] [place] [facility] [address] [place] [address] Dr. Alfredo Lizama Hemoglobin Ql (U) LARGE Abnormal NEGATIVE [facility] Comment on above: Performed By: #### Jacque ESTRADA UMICRO #### [facility] [place] [facility] [address] [place] [address] Dr. Alfredo Lizama Ketones Ql (U) Negative Normal NEGATIVE [facility] Comment on above: Performed By: #### Jacque ESTRADA UMICRO #### [facility] [place] [facility] [address] [place] [address] Dr. Alfredo Lizama LEUKOCYTES LARGE Abnormal NEGATIVE [facility] Comment on above: Performed By: #### Jacque ESTRADA UMICRO #### [facility] [place] [facility] [address] [place] [address] Dr. Alfredo Lizama Nitrite Ql (U) Positive Abnormal NEGATIVE [facility] Comment on above: Performed By: #### Jacque ESTRADA UMICRO #### [facility] [place] [facility] [address] [place] [address] Dr. Alfredo Lizama pH (U) 6.5 [pH] Normal 5-9 [facility] [place] [facility] Comment on above: Performed By: #### Jacque ESTRADA UMICRO #### [facility] [place] [facility] [address] [place] [address] Dr. Alfredo Lizama Protein (U) [Mass/Vol] 100 mg/dL Abnormal NEGATIVE/ TRACE [facility] [place] [facility] Comment on above: Performed By: #### Jacque ESTRADA UMICRO #### [facility] [place] [facility] [address] [place] [address] Dr. Alfredo Lizama SPEC GRAVITY 1.010 Normal 1.005-<=1.0 25 [facility] Comment on above: Performed By: #### FER CHAVESICRO #### [facility] [place] [facility] [address] [place] [address] Dr. Alfredo Lizama UR MICRO IND INDICATED Normal [facility] [place] [facility] Comment on above: Performed By: #### Jacque ESTRADA UMICRO #### [facility] [place] [facility] [address] [place] [address] Dr. Alfredo Lizama Urobilinogen Qn (U) 1.0 {Tesha'U}/dL Normal 0.2 - 1. 0 [facility] [place] [facility] Comment on above: Performed By: #### E RURLINDA #### [facility] [place] [facility] [address] [place] [address] Dr. Alfredo Lizama URINE MICROSCOPIC ONLYon BACTERIA MODERATE Abnormal NONE SEEN [facility] [place] [facility] Comment on above: Performed By: #### U MICRO, ERUR #### [facility] [place] [facility] [address] [place] [address] Dr. Alfredo Lizama Bacteria identified Cx Nom (U) INDICATED Normal [facility] [place] [facility] Comment on above: Performed By: #### U MICRO, ERUR #### [facility] [place] [facility] [address] [place] [address] Dr. Alfredo Lizama CA OX CRYSTALS RARE Normal [facility] [place] [facility] Comment on above: Performed By: #### U MICRO, ERUR #### [facility] [place] [facility] [address] [place] [address] Dr. Alfredo Lizama CAST NONE SEEN Normal NONE SEEN [facility] [place] [facility] Comment on above: Performed By: #### U MICRO, ERUR #### [facility] [place] [facility] [address] [place] [address] Dr. Alfredo Lizama Crystals LM Nom (Urine sed) SEEN Abnormal NONE SEEN [facility] [place] [facility] Comment on above: Performed By: #### U MICRO, ERUR #### [facility] [place] [facility] [address] [place] [address] Dr. Alfredo Lizama Epithelial cells LM Ql (Urine sed) MODERATE Abnormal NONE SEEN /RARE [facility] [place] [facility] Comment on above: Performed By: #### U MICRO, ERUR #### [facility] [place] [facility] [address] [place] [address] Dr. Alfredo Lizama MUCOUS TRACE Abnormal NONE SEEN [facility] [place] [facility] Comment on above: Performed By: #### U MICRO, ERUR #### [facility] [place] [facility] [address] [place] [address] Dr. Alfredo Lizama RBC 20-50 Abnormal 0-2 [facility] [place] [facility] Comment on above: Performed By: #### U MICRO, ERUR #### [facility] [place] [facility] [address], [place] [address] Dr. Alfredo Lizama WBC 50-75 Abnormal NONE SEEN [facility] [place] [facility] Comment on above: Performed By: #### U MICRO, ERUR #### [facility] [place] [facility] [address], [place] [address] Dr. Alfredo Lizama Patient Educationon 09-23-19 Patient [...] including vitamins, herbs, eye drops, creams, and cybi-rmh-rrqnblb medicines. ? Any problems you or family [...] tells you to take them. ? Taking cipx-wuf-jdltpmf medicines, vitamins, herbs, and supplements. General instructions [...] What happens (more content not included)... Normal [facility] Provider Letteron 09-09-2022 Provider Letter (Inserted Image. Shelly ble to display) September 09, 2022 MORALES LEE [address] [place] [address] MORALES LEE 1975 Dear Morales Lee , We have been trying to reach you with no success. It is important that you return our call upon receiving this letter. Also, at the time of your call, please provide us with your current information. Thank you for your prompt attention to this matter. Sincerely, [facility] [address] [place] [address] [facility] Operative Reporton Operative Report [id number]:127 [facility] Lab Reportson 08-26-2022 Lab Reports [id number]:127 [facility] Covid-19 PCR (CVDTB)on 08-06 SARS-CoV-2 (COVID-19) RNA ADRIÁN+probe Ql (Unsp spec) Not detected Normal NOT DETECTED [facility] [place] [facility] Comment on above: Result Comment: When diagnostic [...] for this test is supported by the [employer] and Human Service's declaration that [...] Performed By: #### U MICRO, ERUR #### [facility] [place] [facility] [address] [place] [address] Dr. Alfredo Lizama CBC AUTO DIFFon 08-24-2022 BASO # 0.1 103/ul Normal 0.0-0.1 [facility] Comment on above: Performed By: #### C BC #### [facility] [place] [facility] [address] [place] [address] Dr. Alfredo Lizama Basophils/100 WBC (Bld) 0.8 % Normal 0.2-2.0 [facility] Comment on above: Performed By: #### C BC #### [facility] [address] [place] [address] Dr. Alfredo Lizama EO # 0.3 103/ul Normal 0.0-0.7 [facility] Comment on above: Performed By: #### C BC #### [facility] [address] [place] [address] Dr. Alfredo Lizama Eosinophils/100 WBC (Bld) 3.1 % Normal 0.9-7.0 [facility] Comment on above: Performed By: #### C BC #### [facility] [address] [place] [address] Dr. Alfredo Lizama Erythrocyte distribution width (RBC) [Ratio] 13.4 % Normal 11.0-15.0 [facility] Comment on above: Performed By: #### C BC #### [facility] [address] [place] [address] Dr. Alfredo Lizama Hematocrit (Bld) [Volume fraction] 47.2 % Normal 36.0-48.0 [facility] Comment on above: Performed By: #### C BC #### [facility] [address] [place] [address] Dr. Alfredo Lizama Hemoglobin (Bld) [Mass/Vol] 15.6 g/dL Normal 12.0-16.0 [facility] Comment on above: Performed By: #### C BC #### [facility] [address] [place] [address] Dr. Alfredo Lizama IG # 0.02 10e3/ul Normal 0.00-0.03 [facility] Comment on above: Performed By: #### C BC #### [facility] [address] [place] [address] Dr. Alfredo Lizama IG % 0.2 % Normal 0.0-0.5 [facility] Comment on above: Performed By: #### C BC #### [facility] [address] [place] [address] Dr. Alfredo Lizama LYMPH # 4.4 103/ul Critically high 1.2-3.8 [facility] Comment on above: Performed By: #### C BC #### [facility] [address] [place] [address] Dr. Alfredo Lizama Lymphocytes/100 WBC (Bld) 42.3 % Normal 20.5-60.0 [facility] Comment on above: Performed By: #### C BC #### [facility] [address] [place] [address] Dr. Alfredo Lizama MANUAL DIFF REQ NO Normal [facility] Comment on above: Performed By: #### C BC #### [facility] [address] [place] [address] Dr. Alfredo Lizama MCH (RBC) [Entitic mass] 28.8 pg Normal 26.7-34.0 [facility] Comment on above: Performed By: #### C BC #### [facility] [address] [place] [address] Dr. Alfredo Lizama MCHC (RBC) [Mass/Vol] 33.1 g/dL Normal 29.9-35.2 [facility] Comment on above: Performed By: #### C BC #### [facility] [address] [place], [place] [id number] Dr. Alfredo Lizama MCV (RBC) [Entitic vol] 87.2 fL Normal 81.0-99.0 [facility] Comment on above: Performed By: #### C BC #### [facility] [address] [place] [address] Dr. Alfredo Lizama MONO # 0.6 103/ul Normal 0.3-0.8 [facility] Comment on above: Performed By: #### C BC #### [facility] [address] [place] [address] Dr. Alfredo Lizama Monocytes/100 WBC (Bld) 5.3 % Normal 1.7-12.0 [facility] Comment on above: Performed By: #### C BC #### [facility] [address] [place] [address] Dr. Alfredo Lizama NEUT # 5.0 103/ul Normal 1.4-6.5 [facility] Comment on above: Performed By: #### C BC #### [facility] [address] [place] [address] Dr. Alfredo Lizama Neutrophils/100 WBC (Bld) 48.3 % Normal 43.0-75.0 [facility] Comment on above: Performed By: #### C BC #### [facility] [address] [place] [address] Dr. Alfredo Lizama Platelet mean volume (Bld) [Entitic vol] 9.9 fL Normal 9.5-13.5 [facility] Comment on above: Performed By: #### C BC #### [facility] [address] [place] [address] Dr. Alfredo Lizama PLT 298 103/ul Normal 150-450 [facility] Comment on above: Performed By: #### C BC #### [facility] [address] [place] [address] Dr. Alfredo Lizama RBC 5.41 106/ul Critically high 4.20-5.40 [facility] Comment on above: Performed By: #### C BC #### [facility] [address] [place] [address] Dr. Alfredo Lizama WBC 10.3 103/ul Normal 4.0-11.0 [facility] Comment on above: Performed By: #### C BC #### [facility] [address] [place] [address] Dr. Alfredo Lizama PROF CHEM 8 (BAS METB)on Anion gap [Moles/Vol] 14.3 mmol/L Normal [facility] Comment on above: Performed By: #### U MICRO, ERUR #### [facility] [address] [place] [address] Dr. Alfredo Lizama Calcium [Mass/Vol] 9.1 mg/dL Normal 8.5-10.1 [facility] Comment on above: Performed By: #### U MICRO, ERUR #### [facility] [address] [place] [address] Dr. Alfredo Lizama Chloride [Moles/Vol] 99 mmol/L Normal 98-107 [facility] Comment on above: Performed By: #### U MICRO, ERUR #### [facility] [address] [place] [address] Dr. Alfredo Lizama CO2 [Moles/Vol] 29.0 mmol/L Normal 21.0-32.0 [facility] Comment on above: Performed By: #### U MICRO, ERUR #### [facility] [address] [place] [address] Dr. Alfredo Lizama Creatinine [Mass/Vol] 0.70 mg/dL Normal 0.55-1.02 [facility] Comment on above: Performed By: #### U MICRO, ERUR #### [facility] [address] [place] [address] Dr. Alfredo Lizama EGFR-AF SAMOAN >60 Normal >=60 [facility] Comment on above: Performed By: #### U MICRO, ERUR #### [facility] [address] [place] [address] Dr. Alfredo Lizama EGFR-NON AF SAMOAN >60 Normal >=60 [facility] Comment on above: Performed By: #### U MICRO, ERUR #### [facility] [address] [place] [address] Dr. Alfredo Lizama Glucose [Mass/Vol] 121 mg/dL Critically high 74-106 [facility] Comment on above: Performed By: #### U MICRO, ERUR #### [facility] [address] [address] [address] Alfredo Lizama Potassium [Moles/Vol] 3.3 mmol/L Critically low 3.5-5.1 [facility] Comment on above: Performed By: #### U MICRO, ERUR #### [facility] [address] [address] [address] Alfredo Lizama Sodium [Moles/Vol] 139 mmol/L Normal 136-145 [facility] Comment on above: Performed By: #### U MICRO, ERUR #### [facility] [address] [place] [address] Dr. Alfredo Lizama Urea nitrogen [Mass/Vol] 5.0 mg/dL Critically low 7.0-18.0 [facility] Comment on above: Performed By: #### U MICRO, ERUR #### [facility] [address] [place] [address] Dr. Alfredo Lizama Urea nitrogen/Creatinine [Mass ratio] 7.1 mg/mg Normal [facility] Comment on above: Performed By: #### U MICRO, ERUR #### [facility] [address] [place] [address] Dr. Alfredo Lizama PROTIMEon 08-24-2022 INR Coag (PPP) [Relative time] 0.99 {INR} Normal [facility] Comment on above: Performed By: #### P T, PTT #### [facility] [address] [place] [address] Dr. Alfredo Lizama INR GUIDELINES SEE BELOW Normal [facility] Comment on above: Result Comment: MARY JO RED INR: 2.0 - 3.0 CONDITIONS NOT LISTED BELOW 2.5 - 3.5 FOR PROSTHETIC HEART VALVE REPLACEMENT 2.5 - 3.5 RECURRENT THROMBOSIS Performed By: #### P T, PTT #### [facility] [address] [place] [address] Dr. Alfredo Lizama PT Coag (PPP) [Time] 10.7 s Normal 9.0-11.6 [facility] Comment on above: Performed By: #### P T, PTT #### [facility] [id number] Alfredo Lizama PTTon 08-24-2022 aPTT Coag (Bld) [Time] 31.7 s Normal 22.3-36.2 [facility] Comment on above: Performed By: #### P T, PTT #### [facility] [id number] Alfredo Lizama Physician Orderon 08-24-2022 Physician Order [id number]#1.00CD:127 Normal [facility] Retail - Clinical Noteon Retail - Clinical Note [id number]#1.00CD:127 Normal [facility] Patient Educationon 07-16-20 Patient Education Urology Urinary [...] nerve stimulation). ? For women, using a medical device sales consultant to prevent urine leaks. This is a [...] after experiencing incontinence. General instructions ? Take ycwm-vrg-grkbmgz and prescription medicines only as (more content not included)... Normal [facility] Pre-Certification Formon Pre-Certification Form [id number]#1.00CD:127 Normal [facility] Urology Office/Clinic Noteon 07-16-2022 Urology Office/Clinic Note [...] of temp indwelling bladder cath (alvares) simple 49814 2. 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 Normal [facility] Comment on above: Result Comment: Elec tronically Signed By: Danya Bingham MD\.br\Date and Time Signed: 07/16/22 13:13 EST\.br\Electronically Co-Signed By: Yari Barron\.br\Date and Time Co-Signed: 07/16/22 12:16 EST Reminderson 07-06-2022 Reminders - From: Sandra Kessler To: EU - Recallnedra Bingham; Sandra Kessler; Sent: 03/26/2022 11:47:40 EDT Show up: 04/16/2022 11:47:00 EDT Subject: 4 week cath change Reminder/Recall schedule 4 week cath change at [facility]. alvares cath was changed at [facility] ER on 03/30/22, pt will be [...] catheter changes need to be done at [facility] because she needs lift/assistance. will schedule this faxed order/form to [facility] to be scheduled week of 05/10/22 per Jose at [facility] they have tried calling patient to schedule, no response. I tried calling patient today, no answer, unable to leave VM- phone just kept ringing. Patient had her catheter changed at [facility] on 05/07/22, due in 4 weeks unless s/p tube gets placed before then Order faxed to [facility] for patients cath change to be scheduled at [facility]. will track. From: Sandra Kessler To: EU - Vijay Bingham; Sent: 06/08/2022 08:26:14 EDT Show up: 06/08/2022 08:26:00 EDT Subject: RE: 4 week cath change other message in patient has upcoming appt 07-16-[address] Bingham, she still has not scheduled her cath change Normal [facility] Formson 06-08-2022 Forms [id number]#1.00CD:127 Normal [facility] Physician Orderon 06-08-2022 Physician Order [id number]#1.00CD:127 Normal [facility] BN SACRUM/COCCYX, MIN 2 VIEW Son 06-07-2022 [...] 09/20/2019. Thoracolumbar spine radiographs 09/08/2021. ACCESSION NUMBER(S): [id number]; [id number]; [id number] ORDERING CLINICIAN: CANDICE PEREZ FINDINGS: Three views [...] Electronically signed by: GOMEZ JAMA MD Normal [facility] BN SPINE, LUMBOSACRAL; 2 OR 3 VIEWSon [...] 09/20/2019. Thoracolumbar spine radiographs 09/08/2021. ACCESSION NUMBER(S): [id number]; [id number]; [id number] ORDERING CLINICIAN: CANDICE PEREZ FINDINGS: Three views [...] Electronically signed by: GOMEZ JAMA MD Normal [facility] BN SPINE, THORACIC, 3 VIEWSo n 06-07-2022 [...] 09/20/2019. Thoracolumbar spine radiographs 09/08/2021. ACCESSION NUMBER(S): [id number]; [id number]; [id number] ORDERING CLINICIAN: CANDICE PEREZ FINDINGS: Three views [...] Electronically signed by: GOMEZ JAMA MD Normal [facility] CBC AND DIFFERENTIALon 06-07 % AUTOMATED IMMATURE GRAN 0.2 % Normal 0.0 - 0.9 [facility] Comment on above: Result Comment: Jaleesa ture Granulocyte Count (IG) includes promyelocytes, myelocytes and metamyelocytes but does not include bands. Percent differential counts (%) should be interpreted in the context of the absolute cell counts (cells/L). Performed By: #### R ENAL #### [facility] [address] [place] [address] Basophils (Bld) [#/Vol] 0.09 10*3/uL Normal 0.00 - 0.10 [facility] Comment on above: Performed By: #### R ENAL #### [facility] [address] [place] [address] Basophils/100 WBC (Bld) 1.0 % Normal 0.0 - 2.0 [facility] Comment on above: Performed By: #### R ENAL #### [facility] [address] [place] [address] Eosinophils (Bld) [#/Vol] 0.24 10*3/uL Normal 0.00 - 0.70 [facility] Comment on above: Performed By: #### R ENAL #### [facility] [address] [place] [address] Eosinophils/100 WBC (Bld) 2.6 % Normal 0.0 - 6.0 [facility] Comment on above: Performed By: #### R ENAL #### [facility] [address] [place] [address] Erythrocyte distribution width (RBC) [Ratio] 12.9 % Normal 11.5 - 14.5 [facility] Comment on above: Performed By: #### R ENAL #### [facility] [address] [place] [address] Hematocrit (Bld) [Volume fraction] 48.4 % High 36.0 - 46.0 [facility] Comment on above: Performed By: #### R ENAL #### [facility] [address] [place] [address] Hemoglobin (Bld) [Mass/Vol] 17.1 g/dL High 12.0 - 16.0 [facility] Comment on above: Performed By: #### R ENAL #### [facility] [address] [place] [address] Lymphocytes (Bld) [#/Vol] 2.93 10*3/uL Normal 1.20 - 4.80 [facility] Comment on above: Performed By: #### R ENAL #### [facility] [address] [place] [address] Lymphocytes/100 WBC (Bld) 31.9 % Normal 13.0 - 44.0 [facility] Comment on above: Performed By: #### R ENAL #### [facility] [address] [place] [address] MCHC (RBC) [Mass/Vol] 35.3 g/dL Normal 32.0 - 36.0 [facility] Comment on above: Performed By: #### R ENAL #### [facility] [address] [place] [address] MCV (RBC) [Entitic vol] 85 fL Normal 80 - 100 [facility] Comment on above: Performed By: #### R ENAL #### [facility] [address] [place] [address] Monocytes (Bld) [#/Vol] 0.36 10*3/uL Normal 0.10 - 1.00 [facility] Comment on above: Performed By: #### R ENAL #### [facility] [address] [place] [address] Monocytes/100 WBC (Bld) 3.9 % Normal 2.0 - 10.0 [facility] Comment on above: Performed By: #### R ENAL #### [facility] [address] [place] [address] Neutrophils (Bld) [#/Vol] 5.54 10*3/uL Normal 1.20 - 7.70 [facility] Comment on above: Performed By: #### R ENAL #### [facility] [address] [place] [address] Neutrophils/100 WBC (Bld) 60.4 % Normal 40.0 - 80.0 [facility] Comment on above: Performed By: #### R ENAL #### [facility] [address] [place] [address] NUCLEATED RBC 0.0 /100 WBC Normal 0.0-0.0 [facility] Comment on above: Performed By: #### R ENAL #### [facility] [address] [place] [address] Platelets (Bld) [#/Vol] 365 10*3/uL Normal 150 - 450 [facility] Comment on above: Performed By: #### R ENAL #### [facility] [address] [place] [address] RBC 5.69 x10E12/L High 4.00 - 5.20 [facility] Comment on above: Performed By: #### R ENAL #### [facility] [address] [place] [address] WBC (Bld) [#/Vol] 9.2 10*3/uL Normal 4.4 - 11.3 [facility] Comment on above: Performed By: #### R ENAL #### [facility] [address] [place] [address] COMPREHENSIVE PANELon 2021 Albumin [Mass/Vol] 4.6 g/dL Normal 3.4 - 5.0 [facility] Comment on above: Performed By: #### R ENAL #### [facility] [address] [place] [address] ALP [Catalytic activity/Vol] 192 U/L High 33 - 110 [facility] Comment on above: Performed By: #### R ENAL #### [facility] [address] [place] [address] ALT [Catalytic activity/Vol] 33 U/L Normal 7 - 45 [facility] Comment on above: Result Comment: Melly ents treated with Sulfasalazine may generate falsely decreased results for ALT. Performed By: #### R ENAL #### [facility] [address] [place] [address] Anion gap [Moles/Vol] 16 mmol/L Normal 10 - 20 [facility] Comment on above: Performed By: #### R ENAL #### [facility] [address] [place] [address] AST [Catalytic activity/Vol] 51 U/L High 9 - 39 [facility] Comment on above: Performed By: #### R ENAL #### [facility] [address] [place] [address] Bilirubin [Mass/Vol] 0.5 mg/dL Normal 0.0 - 1.2 [facility] Comment on above: Performed By: #### R ENAL #### [facility] [address] [place] [address] Calcium [Mass/Vol] 10.3 mg/dL Normal 8.6 - 10.6 [facility] Comment on above: Performed By: #### R ENAL #### [facility] [address] [place] [address] Chloride [Moles/Vol] 101 mmol/L Normal 98 - 107 [facility] Comment on above: Performed By: #### R ENAL #### [facility] [address] [place] [address] Creatinine [Mass/Vol] 0.61 mg/dL Normal 0.50 - 1.05 [facility] Comment on above: Performed By: #### R ENAL #### [facility] [address] [place] [address] eGFR FEMALE >90 Normal >90 [facility] Comment on above: Result Comment: CALC ULATIONS OF ESTIMATED GFR ARE PERFORMED USING THE 2020 CKD-EPI STUDY REFIT EQUATION WITHOUT THE RACE VARIABLE FOR THE IDMS-TRACEABLE CREATININE METHODS. https://jasn.asnjournals.org/content/early//ASN.3540523 988 Performed By: #### R ENAL #### [facility] [address] [place] [address] Glucose [Mass/Vol] 100 mg/dL High 74 - 99 [facility] Comment on above: Performed By: #### R ENAL #### [facility] [address] [place] [address] HCO3 (Bld) [Moles/Vol] 27 mmol/L Normal 21 - 32 [facility] Comment on above: Performed By: #### R ENAL #### [facility] [address] [place] [address] Potassium [Moles/Vol] 3.8 mmol/L Normal 3.5 - 5.3 [facility] Comment on above: Performed By: #### R ENAL #### [facility] [address] [place] [address] Protein [Mass/Vol] 8.2 g/dL Normal 6.4 - 8.2 [facility] Comment on above: Performed By: #### R ENAL #### [facility] [address] [place] [address] Sodium [Moles/Vol] 140 mmol/L Normal 136 - 145 [facility] Comment on above: Performed By: #### R ENAL #### [facility] [address] [place] [address] Urea nitrogen [Mass/Vol] 5 mg/dL Low 6 - 23 [facility] Comment on above: Performed By: #### R ENAL #### [facility] [address] [place] [address] Consult - Neuro-Surgeryon Consult - Neuro-Surgery Service: [...] Updated: 07-Jun-2022 11:22 by Perez Carlisle) Normal [facility] NR CT L-SPINE WO CONTRASTon 06-07-[address] L-SPINE WO CONTRAST Patient Name: MORALES LEE STUDY: CT T-SPINE WO CONTRAST; CT L-SPINE WO CONTRAST 06/06/2022 11:03 pm INDICATION: ok, Lie Flat: Yes COMPARISON: 09/20/2021 MRI and 09/18/2021 CT ACCESSION NUMBER(S): [id number]; [id number] ORDERING CLINICIAN: CANDICE PEREZ TECHNIQUE: Axial CT [...] osseous spinal canal or neural foraminal stenosis. Ijtj-pu-tyigjsrz spinal canal and neural foraminal narrowing described [...] Electronically signed by: CELI MCNEIL, DO Normal [facility] NR CT T-SPINE WO CONTRASTon 06-07-[address] T-SPINE WO CONTRAST Patient Name: MORALES LEE STUDY: CT T-SPINE WO CONTRAST; CT L-SPINE WO CONTRAST 06/06/2022 11:03 pm INDICATION: ok, Lie Flat: Yes COMPARISON: 09/20/2021 MRI and 09/18/2021 CT ACCESSION NUMBER(S): [id number]; [id number] ORDERING CLINICIAN: CANDICE PEREZ TECHNIQUE: Axial CT [...] osseous spinal canal or neural foraminal stenosis. Papv-lb-fyrgqaym spinal canal and neural foraminal narrowing described [...] view. Electronically signed by: DO Andrei TOURE [facility] Provider Note - ED Care Diaz sitionon [...] 21-Jun-2022 06:18 by Yony Aguirre () Normal [facility] Provider Note - ED v3on 10-0 Provider [...] BMI (kg/m2): 34.793 Calculated BSA (m2) 1.94 Sigel Coma Scale: Best Eye Response: (E4) spontaneous [...] Updated: 06-Jun-2022 19:07 by Meghan Chavez) Normal [facility] Physician Orderon 05-17-2022 Physician Order [id number]#1.00CD:127 Normal [facility] ED Note-Physicianon 05-11-20 ED Note-Physician [id number]#1.00CD:127 Normal [facility] Lab Reportson 05-11-2022 Lab Reports [id number]#1.00CD:127 Normal [facility] RAD - CT Reporton 05-11-2022 RAD - CT Report [id number]#1.00CD:127 Normal [facility] CULTURE URINEon 05-10-2022 CULTURE URINE Isolate 1 [...] Trimethoprim/Sulfamethoxazo le <=20 S F Normal [facility] Comment on above: Performed By: #### U MICRO, ERUR #### [facility] [address] [place] [address] Dr. Alfredo Lizama CBC AUTO DIFFon 05-07-2022 BASO # 0.1 103/ul Normal 0.0-0.1 [facility] Comment on above: Performed By: #### U MICRO, ERUR #### [facility] [address] [place] [address] Dr. Alfredo Lizama Basophils/100 WBC (Bld) 0.5 % Normal 0.2-2.0 [facility] Comment on above: Performed By: #### U MICRO, ERUR #### [facility] [address] [place] [address] Dr. Alfredo Lizama EO # 0.4 103/ul Normal 0.0-0.7 [facility] Comment on above: Performed By: #### U MICRO, ERUR #### [facility] [address] [place] [address] Dr. Alfredo Lizama Eosinophils/100 WBC (Bld) 3.5 % Normal 0.9-7.0 [facility] Comment on above: Performed By: #### U MICRO, ERUR #### [facility] [address] [place] [address] Dr. Alfredo Lizama Erythrocyte distribution width (RBC) [Ratio] 13.2 % Normal 11.0-15.0 [facility] Comment on above: Performed By: #### U MICRO, ERUR #### [facility] [address] [place] [address] Dr. Alfredo Lizmaa Hematocrit (Bld) [Volume fraction] 44.0 % Normal 36.0-48.0 [facility] Comment on above: Performed By: #### U MICRO, ERUR #### [facility] [address] [place] [address] Dr. Alfredo Lizama Hemoglobin (Bld) [Mass/Vol] 14.8 g/dL Normal 12.0-16.0 [facility] Comment on above: Performed By: #### U MICRO, ERUR #### [facility] [address] [place] [address] Dr. Alfredo Lizama IG # 0.03 10e3/ul Normal 0.00-0.03 [facility] Comment on above: Performed By: #### U MICRO, ERUR #### [facility] [address] [address] [address] Alfredo Lizama IG % 0.2 % Normal 0.0-0.5 [facility] Comment on above: Performed By: #### U MICRO, ERUR #### [facility] [address] [address] [address] Alfredo Lizama LYMPH # 3.8 103/ul Normal 1.2-3.8 [facility] Comment on above: Performed By: #### U MICRO, ERUR #### [facility] [address] [address] [address] Alfredo Lizama Lymphocytes/100 WBC (Bld) 31.3 % Normal 20.5-60.0 [facility] Comment on above: Performed By: #### U MICRO, ERUR #### [facility] [address] [address] [address] Alfredo Lizama MANUAL DIFF REQ NO Normal [facility] Comment on above: Performed By: #### U MICRO, ERUR #### [facility] [address] [address] [address] Alfredo Lizama MCH (RBC) [Entitic mass] 28.8 pg Normal 26.7-34.0 [facility] Comment on above: Performed By: #### U MICRO, ERUR #### [facility] [address] [address] [address] Alfredo Lizama MCHC (RBC) [Mass/Vol] 33.6 g/dL Normal 29.9-35.2 [facility] Comment on above: Performed By: #### U MICRO, ERUR #### [facility] [address] [address] [address] Alfredo Lizama MCV (RBC) [Entitic vol] 85.8 fL Normal 81.0-99.0 [facility] Comment on above: Performed By: #### U MICRO, ERUR #### [facility] [address] [address] [address] Alfredo Lizama MONO # 0.7 103/ul Normal 0.3-0.8 [facility] Comment on above: Performed By: #### U MICRO, ERUR #### [facility] [address] [address] [address] Alfredo Lizama Monocytes/100 WBC (Bld) 5.8 % Normal 1.7-12.0 [facility] Comment on above: Performed By: #### U MICRO, ERUR #### [facility] [address] [place] [address] Dr. Alfredo Lizama NEUT # 7.1 103/ul Critically high 1.4-6.5 [facility] Comment on above: Performed By: #### U MICRO, ERUR #### [facility] [address] [place] [address] Dr. Alfredo Lizama Neutrophils/100 WBC (Bld) 58.7 % Normal 43.0-75.0 [facility] Comment on above: Performed By: #### U MICRO, ERUR #### [facility] [address] [place] [address] Dr. Alfredo Lizama Platelet mean volume (Bld) [Entitic vol] 9.6 fL Normal 9.5-13.5 [facility] Comment on above: Performed By: #### U MICRO, ERUR #### [facility] [address] [place] [address] Dr. Alfredo Lizama PLT 269 103/ul Normal 150-450 [facility] Comment on above: Performed By: #### U MICRO, ERUR #### [facility] [address] [place] [address] Dr. Alfredo Lizama RBC 5.13 106/ul Normal 4.20-5.40 [facility] Comment on above: Performed By: #### U MICRO, ERUR #### [facility] [address] [place] [address] Dr. Alfredo Lizama WBC 12.2 103/ul Critically high 4.0-11.0 [facility] Comment on above: Performed By: #### U MICRO, ERUR #### [facility] [address] [place] [address] ABD/PELV W Paul [...] KORIN STANLEY Date: 2022-05-07 14:00 Normal [facility] ER URINE PROFILEon 2 Bilirubin Ql (U) Negative Normal NEGATIVE [facility] Comment on above: Performed By: #### U MICRO, ERUR #### [facility] [address] [address] [address] Alfredo Lizama Clarity (U) CLOUDY Abnormal CLEAR [facility] Comment on above: Performed By: #### U MICRO, ERUR #### [facility] [address] [address] [address] Alfredo Lizama Color (U) LT. YELLOW Normal YELLOW [facility] Comment on above: Performed By: #### U MICRO, ERUR #### [facility] [address] [place] [address] Dr. Alfredo Lizama ERUAHD A micrscopic examina tion will be performed if indicated. Normal [facility] Comment on above: Performed By: #### U MICRO, ERUR #### [facility] [address] [address] [address] Alfredo Lizaam Glucose Ql (U) Negative Normal NEGATIVE [facility] Comment on above: Performed By: #### U MICRO, ERUR #### [facility] [address] [address] [address] Alfredo Lizama Hemoglobin Ql (U) LARGE Abnormal NEGATIVE [facility] Comment on above: Performed By: #### U MICRO, ERUR #### [facility] [address] [address] [address] Alfredo Lizama Ketones Ql (U) Negative Normal NEGATIVE [facility] Comment on above: Performed By: #### U MICRO, ERUR #### [facility] [address] [address] [address] Alfredo Lizama LEUKOCYTES MODERATE Abnormal NEGATIVE [facility] Comment on above: Performed By: #### U MICRO, ERUR #### [facility] [address] [place] [address] Dr. Alfredo Lizama Nitrite Ql (U) Positive Abnormal NEGATIVE [facility] Comment on above: Performed By: #### U MICRO, ERUR #### [facility] [address] [place] [address] Dr. Alfredo Lizama pH (U) 8.5 [pH] Normal 5-9 [facility] Comment on above: Performed By: #### U MICRO, ERUR #### [facility] [address] [place] [address] Dr. Alfredo Lizama Protein (U) [Mass/Vol] 100 mg/dL Abnormal NEGATIVE/ TRACE [facility] Comment on above: Performed By: #### U MICRO, ERUR #### [facility] [address] [place] [address] Dr. Alfredo Lizama SPEC GRAVITY 1.015 Normal 1.005-<=1.0 25 [facility] Comment on above: Performed By: #### U MICRO, ERUR #### [facility] [address] [place] [address] Dr. Alfredo Lizama UR MICRO IND INDICATED Normal [facility] Comment on above: Performed By: #### U MICRO, ERUR #### [facility] [address] [place] [address] Dr. Alfredo Lizama Urobilinogen Qn (U) 1.0 {Tesha'U}/dL Normal 0.2 - 1. 0 [facility] Comment on above: Performed By: #### U MICRO, ERUR #### [facility] [address] [place] [address] Dr. Alfredo Lizama PROF CHEM 8 (BAS METB)on Anion gap [Moles/Vol] 12.0 mmol/L Normal [facility] Comment on above: Performed By: #### U MICRO, ERUR #### [facility] [address] [place] [address] Dr. Alfredo Lizama Calcium [Mass/Vol] 8.6 mg/dL Normal 8.5-10.1 [facility] Comment on above: Performed By: #### U MICRO, ERUR #### [facility] [address] [place] [address] Dr. Alfredo Lizama Chloride [Moles/Vol] 101 mmol/L Normal 98-107 [facility] Comment on above: Performed By: #### U MICRO, ERUR #### [facility] [address] [address] [address] Alfredo Lizama CO2 [Moles/Vol] 28.0 mmol/L Normal 21.0-32.0 [facility] Comment on above: Performed By: #### U MICRO, ERUR #### [facility] [address] [address] [address] Alfredo Lizama Creatinine [Mass/Vol] 0.77 mg/dL Normal 0.55-1.02 [facility] Comment on above: Performed By: #### U MICRO, ERUR #### [facility] [address] [place] [address] Dr. Alfredo Lizama EGFR-AF SAMOAN >60 Normal >=60 [facility] Comment on above: Performed By: #### U MICRO, ERUR #### [facility] [address] [place] [address] Dr. Alfredo Lizama EGFR-NON AF SAMOAN >60 Normal >=60 [facility] Comment on above: Performed By: #### U MICRO, ERUR #### [facility] [address] [place] [address] Dr. Alfredo Lizama Glucose [Mass/Vol] 96 mg/dL Normal 74-106 [facility] Comment on above: Performed By: #### U MICRO, ERUR #### [facility] [address] [place] [address] Dr. Alfredo Lizama Potassium [Moles/Vol] 4.0 mmol/L Normal 3.5-5.1 [facility] Comment on above: Performed By: #### U MICRO, ERUR #### [facility] [address] [place] [address] Dr. Alfredo Lizama Sodium [Moles/Vol] 137 mmol/L Normal 136-145 [facility] Comment on above: Performed By: #### U MICRO, ERUR #### [facility] [address] [place] [address] Dr. Alfredo Lizama Urea nitrogen [Mass/Vol] 7.0 mg/dL Normal 7.0-18.0 [facility] Comment on above: Performed By: #### U MICRO, ERUR #### [facility] [address] [place] [address] Dr. Alfredo Lizama Urea nitrogen/Creatinine [Mass ratio] 9.1 mg/mg Normal [facility] Comment on above: Performed By: #### U MICRO, ERUR #### [facility] [address] [place] [address] Dr. Alfredo Lizama URINE MICROSCOPIC ONLYon BACTERIA MODERATE Abnormal NONE SEEN [facility] Comment on above: Performed By: #### U MICRO, ERUR #### [facility] [address] [place] [address] Dr. Alfredo Lizama Bacteria identified Cx Nom (U) INDICATED Normal [facility] Comment on above: Performed By: #### U MICRO, ERUR #### [facility] [address] [place] [address] Dr. Alfredo Lizama CAST NONE SEEN Normal NONE SEEN [facility] Comment on above: Performed By: #### U MICRO, ERUR #### [facility] [address] [place] [address] Dr. Alfredo Lizama Crystals LM Nom (Urine sed) NONE SEEN Normal NONE SEEN [facility] Comment on above: Performed By: #### U MICRO, ERUR #### [facility] [address] [place] [address] Dr. Alfredo Lizama Epithelial cells LM Ql (Urine sed) FEW Abnormal NONE SEEN /RARE [facility] Comment on above: Performed By: #### U MICRO, ERUR #### [facility] [address] [place] [address] Dr. Alfredo Lizama MUCOUS NONE SEEN Normal NONE SEEN [facility] Comment on above: Performed By: #### U MICRO, ERUR #### [facility] [address] [place] [address] Dr. Alfredo Lizama RBC 2-5 Abnormal 0-2 [facility] Comment on above: Performed By: #### U MICRO, ERUR #### [facility] [address] [place] [address] Dr. Alfredo Lizama WBC - Abnormal NONE SEEN [facility] Comment on above: Performed By: #### U MICRO, ERUR #### [facility] [address] [place], [place] [address] Dr. Alfredo Lizama Formson 04-29-2022 Forms [id number]:127 Normal [facility] ED Note-Physicianon 04-14-20 22 ED Note-Physician [id number]#[id number]:127 Normal [facility] CULTURE URINEon 04-10-2022 CULTURE URINE Isolate 1 [...] Trimethoprim/Sulfamethoxazo le <=20 S F Normal [facility] Comment on above: Performed By: #### U MICRO, ERUR #### [facility] [address] [address] [address] Alfredo Lizama ER URINE PROFILEon 2 Bilirubin Ql (U) Negative Normal NEGATIVE [facility] Comment on above: Performed By: #### U MICRO, ERUR #### [facility] [address] [place] [address] Dr. Alfredo Lizama Clarity (U) CLOUDY Abnormal CLEAR [facility] Comment on above: Performed By: #### U MICRO, ERUR #### [facility] [address] [address] [address] Alfredo Lizama Color (U) YELLOW Normal YELLOW [facility] Comment on above: Performed By: #### U MICRO, ERUR #### [facility] [address] [place] [address] Dr. Alfredo Lizama ERUAHD A micrscopic examina tion will be performed if indicated. Normal [facility] Comment on above: Performed By: #### U MICRO, ERUR #### [facility] [address] [place] [address] Dr. Alfredo Lizama Glucose Ql (U) Negative Normal NEGATIVE [facility] Comment on above: Performed By: #### U MICRO, ERUR #### [facility] [address] [place] [address] Dr. Alfredo Lizama Hemoglobin Ql (U) SMALL Abnormal NEGATIVE [facility] Comment on above: Performed By: #### U MICRO, ERUR #### [facility] [address] [address] [address] Alfredo Lizama Ketones Ql (U) Negative Normal NEGATIVE [facility] Comment on above: Performed By: #### U MICRO, ERUR #### [facility] [address] [address] [address] Alfredo Lizama LEUKOCYTES LARGE Abnormal NEGATIVE [facility] Comment on above: Performed By: #### U MICRO, ERUR #### [facility] [address] [place] [address] Dr. Alfredo Lizama Nitrite Ql (U) Negative Normal NEGATIVE [facility] Comment on above: Performed By: #### U MICRO, ERUR #### [facility] [address] [place] [address] Dr. Alfredo Lizama pH (U) 7.0 [pH] Normal 5-9 [facility] Comment on above: Performed By: #### U MICRO, ERUR #### [facility] [address] [place] [address] Dr. Alfredo Lizama SPEC GRAVITY <=1.005 Abnormal 1.005-<=1.0 25 [facility] Comment on above: Performed By: #### U MICRO, ERUR #### [facility] [address] [place] [address] Dr. Alfredo Lizama UA PROTEIN Negative Normal NEGATIVE/ TRACE [facility] Comment on above: Performed By: #### U MICRO, ERUR #### [facility] [address] [place] [address] Dr. Alfredo Lizama UR MICRO IND INDICATED Normal [facility] Comment on above: Performed By: #### U MICRO, ERUR #### [facility] [address] [place] [address] Dr. lAfredo Lizama Urobilinogen Qn (U) 0.2 {Tesha'U}/dL Normal 0.2 - 1. 0 [facility] Comment on above: Performed By: #### U MICRO, ERUR #### [facility] [address] [place] [address] Dr. Alfredo Lizama URINE MICROSCOPIC ONLYon BACTERIA MODERATE Abnormal NONE SEEN [facility] Comment on above: Performed By: #### U MICRO, ERUR #### [facility] [address] [place] [address] Dr. Alfredo Lizama Bacteria identified Cx Nom (U) INDICATED Normal [facility] Comment on above: Performed By: #### U MICRO, ERUR #### [facility] [address] [place] [address] Dr. Alfredo Lizama CAST NONE SEEN Normal NONE SEEN [facility] Comment on above: Performed By: #### U MICRO, ERUR #### [facility] [address] [place] [address] Dr. Alfredo Lizama Crystals LM Nom (Urine sed) NONE SEEN Normal NONE SEEN [facility] Comment on above: Performed By: #### U MICRO, ERUR #### [facility] [address] [address] [address] Alfredo Lizama Epithelial cells LM Ql (Urine sed) FEW Abnormal NONE SEEN /RARE [facility] Comment on above: Performed By: #### U MICRO, ERUR #### [facility] [address] [address] [address] Alfredo Lizama MUCOUS NONE SEEN Normal NONE SEEN [facility] Comment on above: Performed By: #### U MICRO, ERUR #### [facility] [address] [address] [address] Alfredo Lizama RBC 5-10 Abnormal 0-2 [facility] Comment on above: Performed By: #### U MICRO, ERUR #### [facility] [address] [place] [address] Dr. Alfredo Lizama WBC (U) [#/Vol] /uL Abnormal NONE SEEN [facility] Comment on above: Performed By: #### U MICRO, ERUR #### [facility] [address] [place] [address] Dr. Alfredo Lizama ED Note-Physicianon 04-05-20 ED Note-Physician [id number]:127 Normal [facility] Formson 03-26-2022 Forms [id number]#[id number]:127 Normal [facility] Basic Metabolic Panelon 11-03 Calcium [Mass/Vol] 8.9 mg/dL Normal 8.2-10.2 [facility] Comment on above: Performed By: #### C BC, CMP, PAB #### [facility] [address] [place] [address] [place] Chloride [Moles/Vol] 101 mmol/L Normal 95-114 [facility] Comment on above: Performed By: #### C BC, CMP, PAB #### [facility] [address] CO2 [Moles/Vol] 29.0 mmol/L Normal 22.0-30.0 [facility] Comment on above: Performed By: #### C DARIUS PATEL, PAB #### [address] Creatinine [Mass/Vol] 0.48 mg/dL Normal 0.44-1.03 [facility] Comment on above: Performed By: #### C DARIUS PATEL, PAB #### [address] Creatinine Clr Calc Pharmacy 150.29 [facility] Comment on above: Result Comment: PERF ORMED BY: [place] [address] PATHOLOGIST APPOINTMENT SPECIALIST HUY COX M.D. Performed By: #### C DARIUS PATEL, PAB #### [address] Estimated GFR ( July > 60 [facility] Comment on above: Result Comment: GFR estimated reference range: According to KDOQI guidelines, <60 ml/min/1.73m2 is sufficient to diagnose a patient with chronic kidney disease. Performed By: #### C DARIUS PATEL, PAB #### [address] Estimated GFR (Non- Am > 60 [facility] Comment on above: Performed By: #### C DARIUS PATEL, PAB #### [address] Glucose [Mass/Vol] 111 mg/dL High 70-100 [facility] Comment on above: Result Comment: [place] om Glucose Reference Range is dependent on time and content of last meal. Glucose of more than 200 mg/dL in a nonstressed, ambulatory subject supports the diagnosis of Diabetes Mellitus. ADA recommended reference range Performed By: #### C DARIUS PATEL, PAB #### [address] Potassium [Moles/Vol] 3.6 mmol/L Normal 3.5-5.1 [facility] Comment on above: Performed By: #### C BC, CMP, PAB #### [facility] [address] Sodium [Moles/Vol] 138 mmol/L Normal 136-146 [facility] Comment on above: Performed By: #### C BC, CMP, PAB #### [facility] [address] Urea nitrogen [Mass/Vol] 10 mg/dL Normal 9-23 [facility] Comment on above: Performed By: #### C BC, CMP, PAB #### [facility] [address] Complete Blood Count Auto Di ffon 11-19-2021 Basophils (Bld) [#/Vol] 0.1 10*3/uL Normal 0.0-0.2 [facility] Comment on above: Result Comment: PERF ORMED BY: [place] [address] PATHOLOGIST APPOINTMENT SPECIALIST HUY COX M.D. Performed By: #### C BC, CMP, PAB #### [facility] [address] Basophils/100 WBC (Bld) 0.8 % Normal . [facility] Comment on above: Performed By: #### C BC, CMP, PAB #### [facility] [address] Eosinophils (Bld) [#/Vol] 0.4 10*3/uL Normal 0.0-0.45 [facility] Comment on above: Performed By: #### C BC, CMP, PAB #### [facility] [address] [place] [address] [place] Eosinophils/100 WBC (Bld) 5.8 % Normal . [facility] Comment on above: Performed By: #### C BC, CMP, PAB #### [facility] [address] Erythrocyte distribution width (RBC) [Ratio] 14.3 % Normal 11.9-15.3 [facility] Comment on above: Performed By: #### C BC, CMP, PAB #### [address] Hematocrit (Bld) [Volume fraction] 36.0 % Normal 34.0-46.4 [facility] Comment on above: Performed By: #### C BC, CMP, PAB #### [address] Hemoglobin (Bld) [Mass/Vol] 11.9 g/dL Normal 11.8-15.4 [facility] Comment on above: Performed By: #### C BC, CMP, PAB #### [address] Lymphocytes (Bld) [#/Vol] 2.7 10*3/uL Normal 1.00-4.8 [facility] Comment on above: Performed By: #### C BC, CMP, PAB #### [address] Lymphocytes/100 WBC (Bld) 37.6 % Normal . [facility] Comment on above: Performed By: #### C BC, CMP, PAB #### [address] MCH (RBC) [Entitic mass] 28.1 pg Normal 24.7-34.3 [facility] Comment on above: Performed By: #### C BC, CMP, PAB #### [address] MCV (RBC) [Entitic vol] 85.3 fL Normal 80-100 [facility] Comment on above: Performed By: #### C BC, CMP, PAB #### [address] Mean Corpuscular HGB Conc 32.9 g/dL Normal 32.0-35.0 [facility] Comment on above: Performed By: #### C BC, CMP, PAB #### [address] Monocytes (Bld) [#/Vol] 0.4 10*3/uL Normal 0.0-0.8 [facility] Comment on above: Performed By: #### C BC, CMP, PAB #### [facility] [address] [place] [address] [place] Monocytes/100 WBC (Bld) 5.2 % Normal . [facility] Comment on above: Performed By: #### C BC, CMP, PAB #### [facility] [address] [place] [address] [place] Neutrophils (Bld) [#/Vol] 3.7 10*3/uL Normal 1.8-7.7 [facility] Comment on above: Performed By: #### C BC, CMP, PAB #### [facility] [address] [place] [address] [place] Neutrophils/100 WBC (Bld) 50.6 % Normal . [facility] Comment on above: Performed By: #### C BC, CMP, PAB #### [facility] [address] [place] [address] [place] Nucleated RBC/100 WBC (Bld) [Ratio] 0.0 % Normal 0-0.5 [facility] Comment on above: Performed By: #### C BC, CMP, PAB #### [facility] [address] [place] [address] [place] Platelet mean volume (Bld) [Entitic vol] 7.6 fL Normal 6.3-10.7 [facility] Comment on above: Performed By: #### C BC, CMP, PAB #### [facility] [address] [place] [address] [place] Platelets (Bld) [#/Vol] 252 10*3/uL Normal 150-450 [facility] Comment on above: Performed By: #### C BC, CMP, PAB #### [facility] [address] [place] [address] [place] RBC (Bld) [#/Vol] 4.22 10*6/uL Normal 3.60-5.00 [facility] Comment on above: Performed By: #### C BC, CMP, PAB #### [facility] [address] [place] [address] [place] WBC (Bld) [#/Vol] 7.2 10*3/uL Normal 4.5-11.0 [facility] Comment on above: Performed By: #### C BC, CMP, PAB #### [address] [place] 11-11-2021 Ammonia (P) [Moles/Vol] 26 umol/L Normal 11-35 [facility] Comment on above: Result Comment: PERF ORMED BY: [place] [address] PATHOLOGIST APPOINTMENT SPECIALIST HUY COX M.D. Performed By: #### C BC, CMP, PAB #### [address] Hepatic Panelon 11-11-2021 Albumin [Mass/Vol] 3.0 g/dL Low 3.2-5.5 [facility] Comment on above: Performed By: #### C BC, CMP, PAB #### [address] Albumin/Globulin [Mass ratio] 1.0 {ratio} Normal [facility] Comment on above: Performed By: #### C BC, CMP, PAB #### [address] ALP [Catalytic activity/Vol] 187 U/L High 32-92 [facility] Comment on above: Result Comment: PERF ORMED BY: [place] [address] PATHOLOGIST APPOINTMENT SPECIALIST HUY COX M.D. Performed By: #### C BC, CMP, PAB #### [facility] [address] [place] [address] ALT [Catalytic activity/Vol] 54 U/L Normal 10-60 [facility] Comment on above: Performed By: #### C BC, CMP, PAB #### [address] AST [Catalytic activity/Vol] 39 U/L Normal 10-42 [facility] Comment on above: Performed By: #### C BC, CMP, PAB #### [address] Bilirubin [Mass/Vol] 0.3 mg/dL Normal 0.3-1.2 [facility] Comment on above: Performed By: #### C BC, CMP, PAB #### [address] Bilirubin,Indirect Not performed Normal [facility] Comment on above: Performed By: #### C BC, CMP, PAB #### [address] Bilirubin.indirect [Mass/Vol] mg/dL Normal 0.0-0.4 [facility] Comment on above: Performed By: #### C BC, CMP, PAB #### [address] Globulin (S) [Mass/Vol] 3.0 g/dL Normal [facility] Comment on above: Performed By: #### C BC, CMP, PAB #### [address] Protein [Mass/Vol] 6.0 g/dL Low 6.1-7.9 [facility] Comment on above: Performed By: #### C BC, CMP, PAB #### [address] Hepatitis Acute Panelon 03-0 HBsAg Screen Negative Normal Negative [facility] Comment on above: Performed By: #### C BC, CMP, PAB #### [address] Hepatitis A Antibody IgM Negative Normal Negative [facility] Comment on above: Performed By: #### C BC, CMP, PAB #### [address] Hepatitis B Core Antibody IgM Negative Normal Negative [facility] Comment on above: Performed By: #### C BC, CMP, PAB #### [address] Hepatitis C Virus Antibody 0.2 Normal 0.0-0.9 [facility] Comment on above: Performed By: #### C JORGE, CMP, PAB #### [facility] [address] [place] [address] Interpretation Hepatitis C Normal . [facility] Comment on above: Result Comment: Nega tive Not infected with HCV, unless recent infection is suspected or other evidence exists to indicate HCV infection. Performed at: - [facility] [id number] Truck Mechanic: Pedro Luis José PhD, Phone: [phone] PERFORMED BY: [place] [address] PATHOLOGIST APPOINTMENT SPECIALIST HUY COX M.D. Performed By: #### C JORGE, DARIUS, PAB #### [address] US liveron 11-11-2021 liver [facility] [place] [address] [place] [address] Ultrasound Report Signed Patient: Morales Lee MR#: [id number] : 1975 Acct:[id number] Age/Sex: 46 / F ADM Date: 10/29/21 Loc: Room: 7W2461-8 Type: ADM IN Attending Dr: Richard Acevedo [...] Alexandru Pond M.D.11/11/2021 10:23 AM Dictation Location: [place] [address] Tech: Ermelinda Diaz Transcribed By: [facility] 11/11/21 1023 Dictated By: Alexandru Pond DO 11/11/21 1018 Signed By: 11/11/21 1023 Normal [facility] Complete Blood Count Auto Di ffon 11-10-2021 Basophils (Bld) [#/Vol] 0.1 10*3/uL Normal 0.0-0.2 [facility] Comment on above: Result Comment: PERF ORMED BY: [place] [address] PATHOLOGIST APPOINTMENT SPECIALIST HUY COX M.D. Performed By: #### C BC #### [address] Basophils/100 WBC (Bld) 1.2 % Normal . [facility] Comment on above: Performed By: #### C BC #### [address] Eosinophils (Bld) [#/Vol] 0.3 10*3/uL Normal 0.0-0.45 [facility] Comment on above: Performed By: #### C BC #### [address] Eosinophils/100 WBC (Bld) 5.9 % Normal . [facility] Comment on above: Performed By: #### C BC #### [address] Erythrocyte distribution width (RBC) [Ratio] 14.2 % Normal 11.9-15.3 [facility] Comment on above: Performed By: #### C BC #### [address] Hematocrit (Bld) [Volume fraction] 37.1 % Normal 34.0-46.4 [facility] Comment on above: Performed By: #### C BC #### [address] Hemoglobin (Bld) [Mass/Vol] 12.3 g/dL Normal 11.8-15.4 [facility] Comment on above: Performed By: #### C BC #### [address] Lymphocytes (Bld) [#/Vol] 2.0 10*3/uL Normal 1.00-4.8 [facility] Comment on above: Performed By: #### C BC #### [address] Lymphocytes/100 WBC (Bld) 36.5 % Normal . [facility] Comment on above: Performed By: #### C BC #### [address] MCH (RBC) [Entitic mass] 28.6 pg Normal 24.7-34.3 [facility] Comment on above: Performed By: #### C BC #### [address] MCV (RBC) [Entitic vol] 86.5 fL Normal 80-100 [facility] Comment on above: Performed By: #### C BC #### [address] Mean Corpuscular HGB Conc 33.1 g/dL Normal 32.0-35.0 [facility] Comment on above: Performed By: #### C BC #### [address] Monocytes (Bld) [#/Vol] 0.3 10*3/uL Normal 0.0-0.8 [facility] Comment on above: Performed By: #### C BC #### [place] [address] [place] Monocytes/100 WBC (Bld) 5.3 % Normal . [facility] Comment on above: Performed By: #### C BC #### [place] [address] [place] Neutrophils (Bld) [#/Vol] 2.8 10*3/uL Normal 1.8-7.7 [facility] Comment on above: Performed By: #### C BC #### [facility] [address] [place] [address] [place] Neutrophils/100 WBC (Bld) 51.1 % Normal . [facility] Comment on above: Performed By: #### C BC #### [facility] [address] Nucleated RBC/100 WBC (Bld) [Ratio] 0.1 % Normal 0-0.5 [facility] Comment on above: Performed By: #### C BC #### [address] Platelet mean volume (Bld) [Entitic vol] 7.8 fL Normal 6.3-10.7 [facility] Comment on above: Performed By: #### C BC #### [address] Platelets (Bld) [#/Vol] 214 10*3/uL Normal 150-450 [facility] Comment on above: Performed By: #### C BC #### [address] RBC (Bld) [#/Vol] 4.28 10*6/uL Normal 3.60-5.00 [facility] Comment on above: Performed By: #### C BC #### [address] WBC (Bld) [#/Vol] 5.4 10*3/uL Normal 4.5-11.0 [facility] Comment on above: Performed By: #### C BC #### [address] Comprehensive Metabolic Pane shree 11-10-2021 Albumin [Mass/Vol] 2.9 g/dL Low 3.2-5.5 [facility] Comment on above: Performed By: #### C BC, CMP, PAB #### [address] [place] [address] [place] Albumin/Globulin [Mass ratio] 0.9 {ratio} Normal [facility] Comment on above: Performed By: #### C BC, CMP, PAB #### [address] ALP [Catalytic activity/Vol] 201 U/L High 32-92 [facility] Comment on above: Performed By: #### C BC, CMP, PAB #### [address] ALT [Catalytic activity/Vol] 67 U/L High 10-60 [facility] Comment on above: Performed By: #### C BC, CMP, PAB #### [address] AST [Catalytic activity/Vol] 66 U/L High 10-42 [facility] Comment on above: Performed By: #### C BC, CMP, PAB #### [address] Bilirubin [Mass/Vol] 0.4 mg/dL Normal 0.3-1.2 [facility] Comment on above: Performed By: #### C BC, CMP, PAB #### [address] Calcium [Mass/Vol] 8.7 mg/dL Normal 8.2-10.2 [facility] Comment on above: Performed By: #### C BC, CMP, PAB #### [place] [address] [place] Chloride [Moles/Vol] 100 mmol/L Normal 95-114 [facility] Comment on above: Performed By: #### C BC, CMP, PAB #### [facility] [address] [place] [address] CO2 [Moles/Vol] 26.4 mmol/L Normal 22.0-30.0 [facility] Comment on above: Performed By: #### C BC, CMP, PAB #### [facility] [address] [place] [address] Creatinine [Mass/Vol] 0.50 mg/dL Normal 0.44-1.03 [facility] Comment on above: Performed By: #### C BC, CMP, PAB #### [facility] [address] Creatinine Clr Calc Pharmacy 142.11 [facility] Comment on above: Result Comment: PERF ORMED BY: [place] [address] PATHOLOGIST APPOINTMENT SPECIALIST HUY COX M.D. Performed By: #### C BC, CMP, PAB #### [address] Estimated GFR ( July > 60 [facility] Comment on above: Result Comment: GFR estimated reference range: According to KDOQI guidelines, <60 ml/min/1.73m2 is sufficient to diagnose a patient with chronic kidney disease. Performed By: #### C BC CMP, PAB #### [address] Estimated GFR (Non- Am > 60 [facility] Comment on above: Performed By: #### C BC, CMP, PAB #### [address] Globulin (S) [Mass/Vol] 3.1 g/dL [facility] Comment on above: Performed By: #### C BC CMP, PAB #### [address] Glucose [Mass/Vol] 110 mg/dL High 70-100 [facility] Comment on above: Result Comment: [place] Glucose Reference Range is dependent on time and content of last meal. Glucose of more than 200 mg/dL in a nonstressed, ambulatory subject supports the diagnosis of Diabetes Mellitus. ADA recommended reference range Performed By: #### C BC, CMP, PAB #### [address] Potassium [Moles/Vol] 4.0 mmol/L Normal 3.5-5.1 [facility] Comment on above: Performed By: #### C BC, CMP, PAB #### [facility] [address] [place] [id number] [place] Protein [Mass/Vol] 6.0 g/dL Low 6.1-7.9 [facility] Comment on above: Performed By: #### C BC, CMP, PAB #### [facility] [address] [place] [address] [place] Sodium [Moles/Vol] 136 mmol/L Normal 136-146 [facility] Comment on above: Performed By: #### C BC, CMP, PAB #### [facility] [address] [place] [address] [place] Urea nitrogen [Mass/Vol] 8 mg/dL Low 9-23 [facility] Comment on above: Performed By: #### C BC, CMP, PAB #### [facility] [address] [place] [address] [place] Dipstick and Microscopicon 0 11-10-2021 Appearance (U) Turbid Critically abnormal Clear [facility] Comment on above: Order Comment: Name Collection Type:: Alvares Catheter Performed By: #### C BC, CMP, PAB #### [facility] [address] [place] [address] [place] Bacteria,Urine 3+ High None Seen [facility] Comment on above: Order Comment: Name Collection Type:: Alvares Catheter Performed By: #### C BC, CMP, PAB #### [facility] [address] [place] [address] [place] Bilirubin,Urine Negative Normal Negative [facility] Comment on above: Order Comment: Name Collection Type:: Alvares Catheter Performed By: #### C BC, CMP, PAB #### [facility] [address] [place] [address] [place] Color (U) Yellow Normal Yellow [facility] Comment on above: Order Comment: Name Collection Type:: Alvares Catheter Performed By: #### C BC, CMP, PAB #### [facility] [address] [place] [address] [place] Glucose Ql (U) Normal Normal Normal [facility] Comment on above: Order Comment: Name Collection Type:: Alvares Catheter Performed By: #### C BC, CMP, PAB #### [facility] [address] [place] [address] [place] Hyaline Casts,Urine None Seen Normal 0-1 [facility] Comment on above: Order Comment: Name Collection Type:: Alvares Catheter Performed By: #### C BC, CMP, PAB #### [facility] [address] Ketones Ql (U) Negative Normal Negative [facility] Comment on above: Order Comment: Name Collection Type:: Alvares Catheter Performed By: #### C BC, CMP, PAB #### [address] Leukocyte esterase Test strip Ql (U) 3+ High Negative [facility] Comment on above: Order Comment: Name Collection Type:: Alvares Catheter Performed By: #### C BC, CMP, PAB #### [address] Nitrite,Urine Positive High Negative [facility] Comment on above: Order Comment: Name Collection Type:: Alvares Catheter Performed By: #### C BC, CMP, PAB #### [place] [address] [place] Occult Blood,Urine 2+ High Negative [facility] Comment on above: Order Comment: Name Collection Type:: Alvares Catheter Result Comment: PERF ORMED BY: [place] [address] PATHOLOGIST APPOINTMENT SPECIALIST HUY COX M.D. Performed By: #### C BC, CMP, PAB #### [facility] [address] [place] [address] Other Casts,Urine None Seen Normal None Seen [facility] Comment on above: Order Comment: Name Collection Type:: Alvares Catheter Result Comment: PERF ORMED BY: [place] [address] PATHOLOGIST APPOINTMENT SPECIALIST HUY COX M.D. Performed By: #### C BC, CMP, PAB #### [facility] [address] [place] [address] [place] pH (U) 8.5 [pH] Normal 5.0-9.0 [facility] Comment on above: Order Comment: Name Collection Type:: Alvares Catheter Performed By: #### C BC, CMP, PAB #### [address] Protein,Urine Negative Normal Negative [facility] Comment on above: Order Comment: Name Collection Type:: Alvares Catheter Performed By: #### C BC, CMP, PAB #### [place] [address] [place] RBC,Urine 1-2 Normal 0-4 [facility] Comment on above: Order Comment: Name Collection Type:: Alvares Catheter Performed By: #### C BC, CMP, PAB #### [address] Specificy [place],Urine 1.006 Normal 1.001-1.030 [facility] Comment on above: Order Comment: Name Collection Type:: Alvares Catheter Performed By: #### C BC, CMP, PAB #### [place] [address] [place] Squamous Epithelial Cell,Urine 3-4 High 0-2 [facility] Comment on above: Order Comment: Name Collection Type:: Alvares Catheter Performed By: #### C BC, CMP, PAB #### [address] Triple Phosphate Crystal,Urine 2+ Normal [facility] Comment on above: Order Comment: Name Collection Type:: Alvares Catheter Performed By: #### C BC, CMP, PAB #### [place] [address] [place] Urobilinogen,Urine Normal Normal Normal [facility] Comment on above: Order Comment: Name Collection Type:: Alvares Catheter Performed By: #### C BC, CMP, PAB #### [place] [address] [place] WBC,Urine 20-49 High 0-4 [facility] Comment on above: Order Comment: Name Collection Type:: Alvares Catheter Performed By: #### C BC, CMP, PAB #### [facility] [address] [place] [address] Urine Cultureon 11-10-2021 Bacteria identified Cx Nom (U) ORGANISM: Providencia rettgeri (O:PRORET) [place] Count >100,000 Aerobic JOSE Charge (NUC86) SUSCEPTIBILITY [...] RESISTANT TO ALL B-LACTAM DRUGS. PERFORMED BY: [place] [address] PATHOLOGIST APPOINTMENT SPECIALIST HUY COX M.D. Normal [facility] Comment on above: Performed By: #### C BC, CMP, PAB #### [facility] [address] [place] [address] Basic Metabolic Panelon 03-0 Calcium [Mass/Vol] 8.7 mg/dL Normal 8.2-10.2 [facility] Comment on above: Performed By: #### B MP, CBC #### [address] Chloride [Moles/Vol] 102 mmol/L Normal 95-114 [facility] Comment on above: Performed By: #### B MP, CBC #### [address] CO2 [Moles/Vol] 25.5 mmol/L Normal 22.0-30.0 [facility] Comment on above: Performed By: #### B MP, CBC #### [facility] [address] Creatinine [Mass/Vol] 0.71 mg/dL Normal 0.44-1.03 [facility] Comment on above: Performed By: #### B MP, CBC #### [address] Creatinine Clr Calc Pharmacy 100.08 [facility] Comment on above: Result Comment: PERF ORMED BY: [place] [address] PATHOLOGIST APPOINTMENT SPECIALIST HUY COX M.D. Performed By: #### B MP, CBC #### [address] Estimated GFR ( July > 60 [facility] Comment on above: Result Comment: GFR estimated reference range: According to KDOQI guidelines, <60 ml/min/1.73m2 is sufficient to diagnose a patient with chronic kidney disease. Performed By: #### B MP, CBC #### [facility] [address] [place] [address] Estimated GFR (Non- Am > 60 [facility] Comment on above: Performed By: #### B MP, CBC #### [facility] [address] [place] [address] [place] Glucose [Mass/Vol] 104 mg/dL High 70-100 [facility] Comment on above: Result Comment: [place] Glucose Reference Range is dependent on time and content of last meal. Glucose of more than 200 mg/dL in a nonstressed, ambulatory subject supports the diagnosis of Diabetes Mellitus. ADA recommended reference range Performed By: #### B MP, CBC #### [address] Potassium [Moles/Vol] 4.1 mmol/L Normal 3.5-5.1 [facility] Comment on above: Performed By: #### B MP, CBC #### [address] Sodium [Moles/Vol] 137 mmol/L Normal 136-146 [facility] Comment on above: Performed By: #### B MP, CBC #### [address] Urea nitrogen [Mass/Vol] 10 mg/dL Normal 9-23 [facility] Comment on above: Performed By: #### B MP, CBC #### [address] Complete Blood Count Auto Di ffon 11-06-2021 Basophils (Bld) [#/Vol] 0.1 10*3/uL Normal 0.0-0.2 [facility] Comment on above: Result Comment: PERF ORMED BY: [place] [address] PATHOLOGIST APPOINTMENT SPECIALIST HUY COX M.D. Performed By: #### B MP, CBC #### [address] Basophils/100 WBC (Bld) 0.8 % Normal . [facility] Comment on above: Performed By: #### B MP, CBC #### [address] Eosinophils (Bld) [#/Vol] 0.4 10*3/uL Normal 0.0-0.45 [facility] Comment on above: Performed By: #### B MP, CBC #### [address] Eosinophils/100 WBC (Bld) 5.5 % Normal . [facility] Comment on above: Performed By: #### B MP, CBC #### [address] Erythrocyte distribution width (RBC) [Ratio] 14.2 % Normal 11.9-15.3 [facility] Comment on above: Performed By: #### B MP, CBC #### [address] Hematocrit (Bld) [Volume fraction] 36.0 % Normal 34.0-46.4 [facility] Comment on above: Performed By: #### B MP, CBC #### [address] Hemoglobin (Bld) [Mass/Vol] 12.0 g/dL Normal 11.8-15.4 [facility] Comment on above: Performed By: #### B MP, CBC #### [address] Lymphocytes (Bld) [#/Vol] 2.4 10*3/uL Normal 1.00-4.8 [facility] Comment on above: Performed By: #### B MP, CBC #### [address] Lymphocytes/100 WBC (Bld) 35.2 % Normal . [facility] Comment on above: Performed By: #### B MP, CBC #### [address] MCH (RBC) [Entitic mass] 28.9 pg Normal 24.7-34.3 [facility] Comment on above: Performed By: #### B MP, CBC #### [address] MCV (RBC) [Entitic vol] 86.4 fL Normal 80-100 [facility] Comment on above: Performed By: #### B MP, CBC #### [address] Mean Corpuscular HGB Conc 33.4 g/dL Normal 32.0-35.0 [facility] Comment on above: Performed By: #### B MP, CBC #### [address] Monocytes (Bld) [#/Vol] 0.3 10*3/uL Normal 0.0-0.8 [facility] Comment on above: Performed By: #### B MP, CBC #### [facility] [address] [place] [address] [place] Monocytes/100 WBC (Bld) 4.8 % Normal . [facility] Comment on above: Performed By: #### B MP, CBC #### [facility] [address] [place] [address] [place] Neutrophils (Bld) [#/Vol] 3.7 10*3/uL Normal 1.8-7.7 [facility] Comment on above: Performed By: #### B MP, CBC #### [facility] [address] Neutrophils/100 WBC (Bld) 53.7 % Normal . [facility] Comment on above: Performed By: #### B MP, CBC #### [facility] [address] [place] [address] [place] Nucleated RBC/100 WBC (Bld) [Ratio] 0.0 % Normal 0-0.5 [facility] Comment on above: Performed By: #### B MP, CBC #### [facility] [address] [place] [address] [place] Platelet mean volume (Bld) [Entitic vol] 8.2 fL Normal 6.3-10.7 [facility] Comment on above: Performed By: #### B MP, CBC #### [facility] [address] [place] [address] [place] Platelets (Bld) [#/Vol] 235 10*3/uL Normal 150-450 [facility] Comment on above: Performed By: #### B MP, CBC #### [facility] [address] [place] [address] [place] RBC (Bld) [#/Vol] 4.17 10*6/uL Normal 3.60-5.00 [facility] Comment on above: Performed By: #### B MP, CBC #### [facility] [address] [place] [address] [place] WBC (Bld) [#/Vol] 6.9 10*3/uL Normal 4.5-11.0 [facility] Comment on above: Performed By: #### B MP, CBC #### [address] US venous duplex LE BIon US venous duplex LE BI [facility] [place] [address] [place] [address] Ultrasound Report Signed Patient: Morales Lee MR#: [id number] : 1975 Acct:[id number] Age/Sex: 46 / F ADM Date: 10/29/21 Loc: Room: [address] [place] [address] Type: ADM IN Attending Dr: Richard Acevedo [...] Carlos Neal MD11/04/2021 11:36 AM Dictation Location: [place] [address] Tech: Natalia Rivas Transcribed By: CORTNEY 11/04/21 1136 Dictated By: Juan Carlos Neal MD 11/04/21 1135 Signed By: 11/04/21 1136 Normal [facility] Complete Blood Count Auto Di ffon 10-30-2021 Basophils (Bld) [#/Vol] 0.0 10*3/uL Normal 0.0-0.2 [facility] Comment on above: Result Comment: PERF ORMED BY: [place] [address] PATHOLOGIST APPOINTMENT SPECIALIST JIANLAN SUN M.D. Performed By: #### C BC, CMP, PAB #### [facility] [address] [place] [id number] [place] Basophils/100 WBC (Bld) 0.6 % Normal . [facility] Comment on above: Performed By: #### C BC, CMP, PAB #### [facility] [address] [place] [address] [place] Eosinophils (Bld) [#/Vol] 0.4 10*3/uL Normal 0.0-0.45 [facility] Comment on above: Performed By: #### C BC, CMP, PAB #### [facility] [address] [place] [address] [place] Eosinophils/100 WBC (Bld) 4.9 % Normal . [facility] Comment on above: Performed By: #### C BC, CMP, PAB #### [facility] [address] [place] [address] [place] Erythrocyte distribution width (RBC) [Ratio] 14.3 % Normal 11.9-15.3 [facility] Comment on above: Performed By: #### C BC, CMP, PAB #### [facility] [address] [place] [address] [place] Hematocrit (Bld) [Volume fraction] 36.1 % Normal 34.0-46.4 [facility] Comment on above: Performed By: #### C BC, CMP, PAB #### [facility] [address] [place] [address] [place] Hemoglobin (Bld) [Mass/Vol] 12.1 g/dL Normal 11.8-15.4 [facility] Comment on above: Performed By: #### C BC, CMP, PAB #### [facility] [address] [place] [address] [place] Lymphocytes (Bld) [#/Vol] 2.8 10*3/uL Normal 1.00-4.8 [facility] Comment on above: Performed By: #### C BC, CMP, PAB #### [facility] [address] [place] [id number] [place] Lymphocytes/100 WBC (Bld) 39.0 % Normal . [facility] Comment on above: Performed By: #### C BC, CMP, PAB #### [facility] [address] MCH (RBC) [Entitic mass] 28.7 pg Normal 24.7-34.3 [facility] Comment on above: Performed By: #### C BC, CMP, PAB #### [facility] [address] MCV (RBC) [Entitic vol] 85.7 fL Normal 80-100 [facility] Comment on above: Performed By: #### C BC, CMP, PAB #### [facility] [address] Mean Corpuscular HGB Conc 33.4 g/dL Normal 32.0-35.0 [facility] Comment on above: Performed By: #### C BC, CMP, PAB #### [facility] [address] Monocytes (Bld) [#/Vol] 0.4 10*3/uL Normal 0.0-0.8 [facility] Comment on above: Performed By: #### C BC, CMP, PAB #### [address] Monocytes/100 WBC (Bld) 5.2 % Normal . [facility] Comment on above: Performed By: #### C BC, CMP, PAB #### [facility] [address] [place] [address] [place] Neutrophils (Bld) [#/Vol] 3.6 10*3/uL Normal 1.8-7.7 [facility] Comment on above: Performed By: #### C BC, CMP, PAB #### [place] [address] [place] Neutrophils/100 WBC (Bld) 50.3 % Normal . [facility] Comment on above: Performed By: #### C BC, CMP, PAB #### [address] Nucleated RBC/100 WBC (Bld) [Ratio] 0.0 % Normal 0-0.5 [facility] Comment on above: Performed By: #### C BC, CMP, PAB #### [facility] [address] Platelet mean volume (Bld) [Entitic vol] 8.1 fL Normal 6.3-10.7 [facility] Comment on above: Performed By: #### C BC, CMP, PAB #### [facility] [address] Platelets (Bld) [#/Vol] 261 10*3/uL Normal 150-450 [facility] Comment on above: Performed By: #### C BC, CMP, PAB #### [address] RBC (Bld) [#/Vol] 4.22 10*6/uL Normal 3.60-5.00 [facility] Comment on above: Performed By: #### C BC, CMP, PAB #### [address] WBC (Bld) [#/Vol] 7.2 10*3/uL Normal 4.5-11.0 [facility] Comment on above: Performed By: #### C BC, CMP, PAB #### [address] Comprehensive Metabolic Pane shree 10-30-2021 Albumin [Mass/Vol] 2.8 g/dL Low 3.2-5.5 [facility] Comment on above: Performed By: #### C BC, CMP, PAB #### [address] Albumin/Globulin [Mass ratio] 1.0 {ratio} Normal [facility] Comment on above: Performed By: #### C BC, CMP, PAB #### [address] ALP [Catalytic activity/Vol] 116 U/L High 32-92 [facility] Comment on above: Performed By: #### C BC, CMP, PAB #### [address] ALT [Catalytic activity/Vol] 20 U/L Normal 10-60 [facility] Comment on above: Performed By: #### C BC, CMP, PAB #### [facility] [address] AST [Catalytic activity/Vol] 22 U/L Normal 10-42 [facility] Comment on above: Performed By: #### C BC, CMP, PAB #### [facility] [address] Bilirubin [Mass/Vol] 0.5 mg/dL Normal 0.3-1.2 [facility] Comment on above: Performed By: #### C BC, CMP, PAB #### [facility] [address] Calcium [Mass/Vol] 8.7 mg/dL Normal 8.2-10.2 [facility] Comment on above: Performed By: #### C BC, CMP, PAB #### [address] Chloride [Moles/Vol] 105 mmol/L Normal 95-114 [facility] Comment on above: Performed By: #### C BC, CMP, PAB #### [facility] [address] CO2 [Moles/Vol] 26.8 mmol/L Normal 22.0-30.0 [facility] Comment on above: Performed By: #### C BC, CMP, PAB #### [facility] [address] Creatinine [Mass/Vol] 0.51 mg/dL Normal 0.44-1.03 [facility] Comment on above: Performed By: #### C BC, CMP, PAB #### [facility] [address] [place] [address] [place] Creatinine Clr Calc Pharmacy 123.73 [facility] Comment on above: Performed By: #### C BC, CMP, PAB #### [facility] [address] [place] [address] [place] Estimated GFR ( July > 60 [facility] Comment on above: Result Comment: GFR estimated reference range: According to KDOQI guidelines, <60 ml/min/1.73m2 is sufficient to diagnose a patient with chronic kidney disease. Performed By: #### C DARIUS PATEL, PAB #### [address] Estimated GFR (Non- Am > 60 Normal [facility] Comment on above: Performed By: #### C DARIUS PATEL, PAB #### [address] Globulin (S) [Mass/Vol] 2.8 g/dL Normal [facility] Comment on above: Performed By: #### C DARIUS PATEL, PAB #### [address] Glucose [Mass/Vol] 115 mg/dL High 70-100 [facility] Comment on above: Result Comment: [place] om Glucose Reference Range is dependent on time and content of last meal. Glucose of more than 200 mg/dL in a nonstressed, ambulatory subject supports the diagnosis of Diabetes Mellitus. ADA recommended reference range Performed By: #### C DARIUS PATEL, PAB #### [address] Potassium [Moles/Vol] 3.7 mmol/L Normal 3.5-5.1 [facility] Comment on above: Performed By: #### C DARIUS PATEL, PAB #### [address] Protein [Mass/Vol] 5.6 g/dL Low 6.1-7.9 [facility] Comment on above: Performed By: #### C DARIUS PATEL, PAB #### [address] Sodium [Moles/Vol] 140 mmol/L Normal 136-146 [facility] Comment on above: Performed By: #### C JORGE CMP, PAB #### [facility] [address] Urea nitrogen [Mass/Vol] 7 mg/dL Low 9-23 [facility] Comment on above: Performed By: #### C BC, CMP, PAB #### [facility] [address] [place] [address] [place] Dipstick and Microscopicon 0 10-30-2021 Appearance (U) Clear Normal Clear [facility] Comment on above: Order Comment: Name Collection Type:: Voided Performed By: #### A DDONUAPLUS, CUU #### [place] [address] [place] Bacteria,Urine 4+ High None Seen [facility] Comment on above: Order Comment: Name Collection Type:: Voided Performed By: #### A DDONUAPLUS, CUU #### [place] [address] [place] Bilirubin,Urine Negative Normal Negative [facility] Comment on above: Order Comment: Name Collection Type:: Voided Performed By: #### A DDONUAPLUS, CUU #### [place] [address] [place] Color (U) Yellow Normal Yellow [facility] Comment on above: Order Comment: Name Collection Type:: Voided Performed By: #### A DDONUAPLUS, CUU #### [place] [address] [place] Glucose Ql (U) Normal Normal Normal [facility] Comment on above: Order Comment: Name Collection Type:: Voided Performed By: #### A DDONUAPLUS, CUU #### [place] [address] [place] Hyaline Casts,Urine 0-8 Normal 0-8 [facility] Comment on above: Order Comment: Name Collection Type:: Voided Result Comment: PERF ORMED BY: [place] [address] PATHOLOGIST APPOINTMENT SPECIALIST HUY COX M.D. Performed By: #### A DDONUAPLUS, CUU #### [place] [address] [place] Ketones Ql (U) Negative Normal Negative [facility] Comment on above: Order Comment: Name Collection Type:: Voided Performed By: #### A DDONUAPLUS, CUU #### [facility] [address] [place] [address] Leukocyte esterase Test strip Ql (U) 3+ High Negative [facility] Comment on above: Order Comment: Name Collection Type:: Voided Performed By: #### A DDONUAPLUS, CUU #### [place] [address] [place] Nitrite,Urine Positive High Negative [facility] Comment on above: Order Comment: Name Collection Type:: Voided Performed By: #### A DDONUAPLUS, CUU #### [address] Occult Blood,Urine Negative Normal Negative [facility] Comment on above: Order Comment: Name Collection Type:: Voided Result Comment: PERF ORMED BY: [place] [address] PATHOLOGIST APPOINTMENT SPECIALIST HUY COX M.D. Performed By: #### A DDONUAPLUS, CUU #### [address] pH (U) 5.5 [pH] Normal 5.0-9.0 [facility] Comment on above: Order Comment: Name Collection Type:: Voided Performed By: #### A DDONUAPLUS, CUU #### [place] [address] [place] Protein,Urine Negative Normal Negative [facility] Comment on above: Order Comment: Name Collection Type:: Voided Performed By: #### A DDONUAPLUS, CUU #### [place] [address] [place] RBC LM.HPF (Urine sed) [#/Area] 0 /[HPF] Normal 0-4 [facility] Comment on above: Order Comment: Name Collection Type:: Voided Performed By: #### A DDONUAPLUS, CUU #### [place] [address] [place] Specificy [place],Urine 1.012 Normal 1.001-1.030 [facility] Comment on above: Order Comment: Name Collection Type:: Voided Performed By: #### A DDONUAPLUS, CUU #### [address] Squamous Epithelial Cell,Urine 0-1 Normal 0-2 [facility] Comment on above: Order Comment: Name Collection Type:: Voided Performed By: #### A DDONUAPLUS, CUU #### [address] Urobilinogen,Urine Normal Normal Normal [facility] Comment on above: Order Comment: Name Collection Type:: Voided Performed By: #### A DDONUAPLUS, CUU #### [address] WBC,Urine 20-49 High 0-4 [facility] Comment on above: Order Comment: Name Collection Type:: Voided Performed By: #### A DDONUAPLUS, CUU #### [address] Prealbuminon 10-30-2021 Prealbumin [Mass/Vol] 13.1 mg/dL Low 18.0-38.0 [facility] Comment on above: Result Comment: PERF ORMED BY: [place] [address] PATHOLOGIST APPOINTMENT SPECIALIST HUY COX M.D. Performed By: #### C BC, CMP, PAB #### [address] Urine Cultureon 10-30-2021 Bacteria identified Cx Nom (U) ORGANISM: Escherichia coli (O:ESCCOL) [place] Count >100,000 Aerobic JOSE Charge (NUC86) SUSCEPTIBILITY [...] RESISTANT TO ALL B-LACTAM DRUGS. PERFORMED BY: [place] [address] PATHOLOGIST APPOINTMENT SPECIALIST HUY COX M.D. Normal [facility] Comment on above: Performed By: #### A DDONUAPLUS, [facility] #### [address] [facility] SARS-CoV-2 (COVID-19) RNA ADRIÁN+probe Ql (Unsp spec) Negative Normal Negative [facility] Comment on above: Order Comment: Healt hcare Worker?: N Result Comment: Testing for SARS-CoV-2 by RT-PCR This test was developed and its performance characteristics determined by [employer] and validated at the [facility]. This test has not been FDA cleared [...] is terminated or revoked sooner. PERFORMED BY: [facility] [address] [place] [address] PATHOLOGIST APPOINTMENT SPECIALIST HUY COX M.D. Performed By: #### C OVID 19 [facility] #### [facility] [address] Clinical Event Note-Need for Hospital Bedon [...] of the lumbar region. Provider/Team Contact Info-Pager [id number] Electronic Signatures: Sharmin Guaman (ALUMINUM CAN COLLECTOR-GEODESIST) (Signed 02-Oct-2021 15:19) Authored: Clinical Event Note Last Updated: 02-Oct-2021 15:19 by Sharmin Guaman (ALUMINUM CAN COLLECTOR-GEODESIST) Normal [facility] Clinical Event Note-Need for wheel Chairon 10-02-2021 [...] home, can self propel or has a caregiver services home to provide assistance. Provider/Team Contact Info-Pager [phone] Electronic Signatures: Sharmin Guaman (ALUMINUM CAN COLLECTOR-GEODESIST) (Signed 02-Oct-2021 15:27) Authored: Clinical Event Note Last Updated: 02-Oct-2021 15:27 by Sharmin Guaman (ALUMINUM CAN COLLECTOR-GEODESIST) Normal [facility] Daily Progress Note-Neurosur geryon 10-02-2021 Daily Progress Note-Neurosurgery Service: Neurosurgery Subjective Data: MORALES LEE is a 46 year old Female who is Hospital Day # 18 and POD #11 for posterior L4-L5 decompression;posterior L4-L5 arthrodesis. Objective Data: Objective Information: T PRBPSpO2 [id number]/8397% Date/Time10/02 1: 1: 1: 1: 1:28 Range(36.2C [...] 2021 10:00 pm000 Oct 01, 2021 2:00 [id number] The Intake and Output Totals for the [...] the note. I personally evaluated the patient [id number] Electronic Signatures: Kenneth Philippe (Resident)) (Signed 02-Oct-2021 06:52) Authored: Service, Subjective Data, Objective Data, Assessment and Plan, Note Completion Lex Frederick) (Signed 02-Oct-2021 15:16) Authored: Note Completion Co-Signer: Service, Subjective Data, Objective Data, Assessment and Plan, Note Completion Last Updated: 02-Oct-2021 15:16 by Lex Frederick) [facility] Clinical Event Note-Discharg e discussionon 10-01-2021 [...] to function in her home environment with [facility]. Ultimately, patient's allowed patient to make final decision regarding discharge. Will ensure HHC orders placed and hospital bed ordered. Will discuss with discharge team organizing transportation home given patient's post op pain and duration of trip. Electronic Signatures: Ambrocio Izaguirre (ALUMINUM CAN COLLECTOR-GEODESIST) (Signed 01-Oct-2021 17:11) Authored: Clinical Event Note Last Updated: 01-Oct-2021 17:11 by Ambrocio Izaguirre (ALUMINUM CAN COLLECTOR-GEODESIST) Normal [facility] Clinical Event Note-Need for hospital bedon 10-01-2021 [...] when lying flat. Electronic Signatures: Ambrocio Izaguirre (ALUMINUM CAN COLLECTOR-GEODESIST) (Signed 01-Oct-2021 14:48) Authored: Clinical Event Note Last Updated: 01-Oct-2021 14:48 by Ambrocio Izaguirre (ALUMINUM CAN COLLECTOR-GEODESIST) Normal [facility] Daily Progress Note-Neurosjudy leonidasgaurang 10-01-2021 Daily Progress Note-Neurosurgery Service: Neurosurgery Subjective Data: MORALES LEE is a 46 year old Female who is Hospital Day # 17 and POD #10 for posterior L4-L5 decompression;posterior L4-L5 arthrodesis. Objective Data: Objective Information: T PRBPSpO2 [id number]/7194% Date/Time10/01 0: 0: 0: 0:381 0:38 Range(35.6C - 36.8C ) (64 - 96 ) (16 - 19 ) (94 - 138 )/ (59 - 83 ) (92% - 94% ) Pain reported at 09/30 9:00: 2 = Mild ---- Intake and Output ----- Mn/Dy/Year TimeIntakeOutputNet Sep 29, 2021 10:00 [id number] Sep 29, 2021 2:00 [id number] Sep 29, 2021 6:00 am000 The Intake [...] Updated: 01-Oct-2021 10:29 by Lex Frederick) Normal [facility] Daily Progress Note-Neurosurgery This report has been cancelled. Normal [facility] Daily Progress Note-Neurosur leonidasyon 09-30-2021 Daily Progress Note-Neurosurgery Service: Neurosurgery Subjective Data: MORALES LEE is a 46 year old Female who is Hospital Day # 15 and POD #8 for posterior L4-L5 decompression;posterior L4-L5 arthrodesis. Objective Data: Objective Information: T PRBPSpO2 [id number]/7393% Date/Time09/29 16: 16: 16: 16: 16:00 Range(36C - 36.7C ) (67 - 86 ) (17 - 20 ) (94 - 153 )/ (15 - 113 ) (93% - 98% ) Pain reported at 09/29 9:56: 5 = Moderate ---- Intake and Output ----- Mn/Dy/Year TimeIntakeOutputNet Sep 29, 2021 2:00 [id number] Sep 29, 2021 6:00 am000 Sep 28, 2021 10:00 [id number] The Intake and Output Totals for the [...] the note. I personally evaluated the patient [id number] Electronic Signatures: Lex Frederick) (Signed 30-Sep-2021 11:18) Authored: Note Completion Co-Signer: Service, Subjective Data, Objective Data, Assessment and Plan, Note Completion Jaya Mosquera (Resident)) (Signed 30-Sep-2021 03:18) Authored: Service, Subjective Data, Objective Data, Assessment and Plan, Note Completion Last Updated: 30-Sep-2021 11:18 by Lex Frederick) [facility] Rehab Tpfy-ny-ietibokuo - co -tx /c OT to address multidiscipon 09-30-2021 Rehab Iaca-yo-xsbjezpdb - co-tx /c OT to address multidiscip Rehab: Info: Disciplinephysical physical therapy technician Mode of Treatmentphysical therapy; co-treatment; co-tx /c OT to address multidisciplinary functional needs and maximize pt's safety. Time IN12:15 Time OUT12:55 Total Treatment [id number] Patient in ... at end of sessionbed, 3 railings up; alarm off; not on at start of visit Communicated with ... at end of sessionbedside nurse Patient Effortgood Symptoms Noted During/After Treatmentfatigue Treatment Considerations/CommentsExte nsive discussion /c amongst TELEPHONER, OT, and pt regarding her current physical [...] rolling right; rolling left; scooting/bridging Roll Left [place] (Bed Mobility)moderate assist (50% patient effort); 1 person assist; nonverbal cues (demo/gesture); verbal cues Roll Right [place] (Bed Mobility)moderate assist (50% patient effort); 1 person assist; nonverbal cues (demo/gesture); verbal cues Scoot/Bridge [place] (Bed Mobility)maximum assist (25% patient effort); 2 person assist; nonverbal cues (demo/gesture); verbal cues Ydfnoq-we-Yfg [place] (Bed Mobility)maximum assist (25% patient effort); 2 person assist; nonverbal cues (demo/gesture); verbal cues Fgx-cf-Qajldp [place] (Bed Mobility)maximum assist (25% patient effort); 2 [...] Pt repositioned back to sitting EOB. Sit-Stand [place] (Transfers)dependent (less than 25% patient effort) Sit-Stand Assistive Device (Transfers)mechanical lift/aid Stand-Sit [place] (Transfers)dependent (less than 25% patient effort) Stand-Sit [...] Score8 Short Term Goals: Bed Mobility: Date [id number] Bed Mobility: [place] Level Goalminimum assist (75% patients effort) Bed Mobility: Physical Assist Level Goal1-person assist, verbal cues Bed Mobility: Time Frame for Goal2 wks Transfer: Established [id number] Transfer: Transfer Type Pyppkks-mq-lebmj/chair-to-b ed; sgs-gg-agove/wulrb-wx-rtk Transfer: [place] Level Goalmoderate assist (50% patients effort) Transfer: Physical Assist Level Goal1-person assist; verbal cues Transfer: Assistive Device Goalrolling walker Transfer: Time Frame for Goal2 wks Gait: Established [id number] Gait: [place] Level Goalmoderate assist (50% patients (more content not included)... Normal [facility] Rehab Note-leather fitter apy - co-tx with PT to maximizeon 09-30-2021 Rehab Note-occupational therapy - co-tx with PT to maximize Rehab: Info: Disciplineoccupational therapist Mode of Treatmentoccupational therapy; co-tx with PT to maximize pt's mobility and safety. Time IN12:15 Time OUT12:55 Total Treatment [id number] Patient in ... at end of sessionbed, [...] ling right; rolling left; scooting/bridging Roll Left [place] (Bed Mobility)moderate assist (50% patient effort); 1 person assist; nonverbal cues (demo/gesture); verbal cues Roll Right [place] (Bed Mobility)moderate assist (50% patient effort); 1 person assist; nonverbal cues (demo/gesture); verbal cues Scoot/Bridge [place] (Bed Mobility)maximum assist (25% patient effort); 2 [...] lower body dressing; upper body dressing; bathing [place] Level (Bathing)set up; verbal cues; moderate assist (50% patient effort); 1 person assist Comment (Bathing)anticipated due to impaired balance, strength, and pain. [place] Level (Upper Body Dressing)set up; verbal cues; moderate assist (50% patient effort) Comment (Upper Body Dressing)anticipated due to impaired balance, strength, and pain. [place] Level (Lower Body Dressing)don; socks; dependent (less than 25% patient effort) Position (Lower Body Dressing)supine [place] Level (Grooming)modified independence Comment (Grooming)Pt observed applying Orajel to gums, able to manage packaging, cap un/screwing, and application. [place] Level (Feeding)modified independence Comment (Feeding)Pt able to retrieve OJ cup from tray table at R side, bring to mouth, and drink appropriately. [place] Level (Toileting)dependent (less than 25% patient effort); [...] Score15 Short Term Goals: Bed Mobility: Date [id number] Bed Mobility: [place] Level Goalcontact guard Bed Mobility: Physical Assist Level Goalset-up, verbal cues Bed Mobility: Time Frame for Goal2 wks Transfer: Established Transfer: Transfer Type Rnhdgaf-it-cdgtw/chair-to-b ed; wus-ec-vtmme/aumff-my-fnn; toilet Transfer: [place] Level Goalminimum assist (75% patients effort) Transfer: Physical Assist Level Goalset-up; verbal cues; 1-person assist Transfer: Assistive Device GoalLRD Transfer: Time Frame for Goal2 wks Balance: Established [id number] Balance: Goal DetailsPt will perform ADL while reaching outside MADDIE and returning self to midline >8 minutes with set-up assist, SBA, and minimal verbal cues for safety. Enrique (more content not included)... Normal [facility] Daily Progress Note-Nuha stearns 09-29-2021 Daily Progress Note-Neurosurgery Service: Neurosurgery Subjective Data: MORALES LEE is a 46 year old Female who is Hospital Day # 14 and POD #7 for posterior L4-L5 decompression;posterior L4-L5 arthrodesis. Objective Data: Objective Information: T PRBPSpO2 [id number]/[id number]% Date/Time09/28 4: 8: 8: 8: 8:00 Range(36C [...] 2021 6:00 am000 Sep 27, 2021 10:00 [id number] Sep 27, 2021 2:00 [id number] The Intake and Output Totals for the last 24 hours are: IntakeOutputNet [id number] Physical Exam by System: Neurological: A&Ox3 RUE [...] the note. I personally evaluated the patient [id number] Electronic Signatures: Lex Frederick) (Signed 29-Sep-2021 09:23) Authored: Note Completion Co-Signer: Service, Subjective Data, Objective Data, Assessment and Plan, Note Completion Jaya Mosquera (Resident)) (Signed 29-Sep-2021 03:01) Authored: Service, Subjective Data, Objective Data, Assessment and Plan, Note Completion Last Updated: 29-Sep-2021 09:23 by Lex Frederick) [facility] Rehab Dcww-cl-rvowlklbu - co -tx /c OT to address multidiscipon 09-29-2021 Rehab Vonb-qe-vfxheaccc - co-tx /c OT to address multidiscip Rehab: Info: Disciplinephysical physical therapy technician Mode of Treatmentphysical therapy; co-treatment; co-tx /c OT to address multidisciplinary functional needs and maximize pt's safety. Time IN14:30 Time OUT15:40 Total Treatment [id number] Patient in ... at end of sessionbed, [...] to sit; sit to supine Roll Left [place] (Bed Mobility)maximum assist (25% patient effort); 2 person assist; verbal cues; nonverbal cues (demo/gesture) Roll Right [place] (Bed Mobility)maximum assist (25% patient effort); 2 person assist; verbal cues; nonverbal cues (demo/gesture) Scoot/Bridge [place] (Bed Mobility)maximum assist (25% patient effort); 2 person assist; nonverbal cues (demo/gesture); verbal cues Mntblt-zu-Mog [place] (Bed Mobility)maximum assist (25% patient effort); 2 person assist; nonverbal cues (demo/gesture); verbal cues Ulq-sv-Wvhqbv [place] (Bed Mobility)verbal cues; nonverbal cues (demo/gesture); maximum [...] Pt repositioned back to sitting EOB. Sit-Stand [place] (Transfers)dependent (less than 25% patient effort) Sit-Stand Assistive Device (Transfers)mechanical lift/aid Stand-Sit [place] (Transfers)dependent (less than 25% patient effort) Stand-Sit [...] Score8 Short Term Goals: Bed Mobility: Date [id number] Bed Mobility: [place] Level Goalminimum assist (75% patients effort) Bed Mobility: Physical Assist Level Goal1-person assist, verbal cues Bed Mobility: Time Frame for Goal2 wks Transfer: Established [id number] Transfer: Transfer Type Jbqnogn-dy-vftfp/chair-to-b ed; fuq-dm-tyimk/ypgup-yc-zzg Transfer: [place] Level Goalmoderate assist (50% patients effort) Transfer: Physical Assist Level Goal1-person assist; verbal cues Transfer: Assistive Device Goalrolling walker Transfer: Time Frame for Goal2 wks Gait: Established [id number] Gait: [place] Level Goalmoderate assist (50% patients effort) Gait: Physical Assist Level1-person assist; verbal cues Gait: Assistive Device Goalrolling walker Gait: Distance Goal15 feet Gait: Time Frame for Goal2 wks Balance: Established [id number] Balance: Goal DetailsSitting EOB 20 minutes with 0-1 UE support, SBA for static sitting, CGA for dynamic. Standing 1 minute with FWW and CGA Education: Learnerpatient Topicrehab plan of care; discharge recommendations including destination and/or equipment Outcome Summary: Progress: Physical Therapyprogress towards functional goals is fair Outcome (more content not included)... Normal [facility] Rehab Note-leather fitter apy - co-tx with PT to maximizeon 09-29-2021 Rehab Note-occupational therapy - co-tx with PT to maximize Rehab: Info: Disciplineoccupational therapist Mode of Treatmentoccupational therapy; co-tx with PT to maximize pt's mobility and safety. Time IN14:30 Time OUT15:40 Total Treatment [id number] Patient in ... at end of sessionbed, [...] to sit; sit to supine Roll Left [place] (Bed Mobility)maximum assist (25% patient effort); 2 person assist; verbal cues; nonverbal cues (demo/gesture); multiple rolls to adjust harness Roll Right [place] (Bed Mobility)maximum assist (25% patient effort); 2 person assist; verbal cues; nonverbal cues (demo/gesture); multiple rolls to adjust harness Scoot/Bridge [place] (Bed Mobility)maximum assist (25% patient effort); 2 person assist; nonverbal cues (demo/gesture); verbal cues; boost HOB Vkufwc-sv-Syz [place] (Bed Mobility)maximum assist (25% patient effort); 2 person assist; nonverbal cues (demo/gesture); verbal cues Roq-ph-Rpaplz [place] (Bed Mobility)verbal cues; nonverbal cues (demo/gesture); maximum assist (25% patient effort); 2 person assist Assistive Device (Bed Mobility)draw sheet; bed rails Transfer Assessment/Interventionssit to stand transfer; stand to sit transfer Sit-Stand [place] (Transfers)dependent (less than 25% patient effort) Sit-Stand Assistive Device (Transfers)mechanical lift/aid; Faye Plus Stand-Sit [place] (Transfers)dependent (less than 25% patient effort) Stand-Sit Assistive Device (Transfers)mechanical lift/aid; Faye Plus Safety Issues Impacting Function (Mobility)awareness of need for assistance; insight into deficits/self awareness Impairments Impacting Function (Mobility)endurance/activit y tolerance; strength; balance; coordination; postural/trunk control ADL: BADL Assessment/Interventiontoil eting; feeding; grooming; lower body dressing; upper body dressing; bathing Seneca Level (Bathing)set up; verbal cues; moderate assist (50% patient effort); 1 person assist Comment (Bathing)anticipated due to impaired balance, strength, and pain. [place] Level (Upper Body Dressing)set up; verbal cues; moderate assist (50% patient effort) Comment (Upper Body Dressing)anticipated due to impaired balance, strength, and pain. [place] Level (Lower Body Dressing)don; socks; dependent (less than 25% patient effort) Position (Lower Body Dressing)supine Seneca Level (Grooming)set up; contact guard Comment (Grooming)anticipated due to impaired balance, strength, and pain. [place] Level (Feeding)set up; modified independence Comment (Feeding)anticipated Seneca Level (Toileting)dependent (less than 25% patient effort); purewick Impairments, BADL Safety/Performancebalance; cognition; endurance/activity tolerance; strength; trunk/postural control Cognitive Impairments, BADL Safety/Performanceawareness , need for assistance; insight into deficits/self awareness; judgment; problem solving/reasoning Motor: Sitting, Static (Balance)good balance SBA Sitting, Dynamic (Balance)fair balance CGA Abn-jz-Repov (Balance)poor balance Total A via Faye Plus lift Standing, Static (Balance)poor balance Max A x1 - via Faye Plus Standing, Dynamic (Balance)unable to balance Balance ActivitiesPt sat EOB ~20 minutes throughout session primarily with SB (more content not included)... Normal [facility] Clinical Event Note-Medical Assessmenton 09-28-2021 Clinical Event [...] oil enema alternating with tap water enema N9Lutmm - Bisacodyl suppository QHS Daily - Monitor [...] for wound check 10/07/21 at 10:15 am, [facility] 5[facility] - F/U with Dr. Frederick [...] this note 45 minutes; Electronic Signatures: Concetta Sih (ALUMINUM CAN COLLECTOR-GEODESIST) (Signed 28-Sep-2021 14:31) Authored: Clinical Event Note Last Updated: 28-Sep-2021 14:31 by Concetta Shi (ALUMINUM CAN COLLECTOR-GEODESIST) Normal [facility] Daily Progress Note-Gastroen terologyon 09-28-2021 Daily Progress Note-Gastroenterolog y Service: Gastroenterology Subjective Data: MORALES LEE is a 46 year old Female who is Hospital Day # 14 and POD #7 for posterior L4-L5 decompression;posterior L4-L5 arthrodesis. No events overnight. Had one bowel movement this am. Otherwise no complaints. Objective Data: Objective Information: T PRBPSpO2 [id number]/6993% Date/Time09/28 4:001 8: 8:001 8:001 8:00 Range(36C [...] 2021 6:00 am000 Sep 27, 2021 10:00 [id number] Sep 27, 2021 2:00 [id number] The Intake and Output Totals for the last 24 hours are: IntakeOutputNet [id number] Physical Exam by System: Constitutional: Constitutional: A&Ox3, [...] recommend tr (more content not included)... Normal [facility] Daily Progress Note-Neurosjudy stearns 09-28-2021 Daily Progress Note-Neurosurgery Service: Neurosurgery Subjective Data: MORALES LEE is a 46 year old Female who is Hospital Day # 14 and POD #7 for posterior L4-L5 decompression;posterior L4-L5 arthrodesis. Objective Data: Objective Information: T PRBPSpO2 [id number]/4893% Date/Time09/28 4: 4: 4: 4: 4:00 Range(36C - 36.6C ) (72 - 87 ) (15 - 22 ) (92 - 153 )/ (48 - 113 ) (92% - 99% ) As of 27-Sep-2021 22:00:00, patient is on 2 L/min of oxygen via nasal cannula. Pain reported at 09/27 22:00: 0 = None ---- Intake and Output ----- Mn/Dy/Year TimeIntakeOutputNet Sep 26, 2021 10:00 [id number] Sep 26, 2021 2:00 [id number] The Intake and Output Totals for the last 24 hours are: IntakeOutputNet [id number] Physical Exam by System: Neurological: A&Ox3 RUE [...] the note. I personally evaluated the patient [id number] Electronic Signatures: Fidel Maciel (Resident)) (Signed 28-Sep-2021 05:47) Authored: Service, Subjective Data, Objective Data, Assessment and Plan, Note Completion Lex Frederick) (Signed 28-Sep-2021 07:32) Authored: Note Completion Co-Signer: Service, Subjective Data, Objective Data, Assessment and Plan, Note Completion Last Updated: 28-Sep-2021 07:32 by Lex Frederick) Normal [facility] RENAL FUNCTION PANELon 09-28 Albumin [Mass/Vol] 3.1 g/dL Low 3.4 - 5.0 [facility] Comment on above: Performed By: #### R ENAL ####[id number] [place] [address] Anion gap [Moles/Vol] 17 mmol/L Normal 10 - 20 [facility] Comment on above: Performed By: #### R ENAL ####[id number] [place] [address] Calcium [Mass/Vol] 8.4 mg/dL Low 8.6 - 10.6 [facility] Comment on above: Performed By: #### R ENAL ####[id number] [place] [address] Chloride [Moles/Vol] 102 mmol/L Normal 98 - 107 [facility] Comment on above: Performed By: #### R ENAL ####[id number] [place] [address] Creatinine [Mass/Vol] 0.47 mg/dL Low 0.50 - 1.05 [facility] Comment on above: Performed By: #### R ENAL ####[id number] [place] [address] eGFR FEMALE >90 Normal >90 [facility] Comment on above: Result Comment: CALC ULATIONS OF ESTIMATED GFR ARE PERFORMED USING THE 2020 CKD-EPI STUDY REFIT EQUATION WITHOUT THE RACE VARIABLE FOR THE IDMS-TRACEABLE CREATININE METHODS. https://jasn.asnjournals.org/content/early//ASN.4415600 988 Performed By: #### R ENAL ####[id number] [place] [address] Glucose [Mass/Vol] 74 mg/dL Normal 74 - 99 [facility] Comment on above: Performed By: #### R ENAL ####[id number] [place] [address] HCO3 (Bld) [Moles/Vol] 27 mmol/L Normal 21 - 32 [facility] Comment on above: Performed By: #### R ENAL ####[id number] [place] [address] Phosphate [Mass/Vol] 3.4 mg/dL Normal 2.5 - 4.9 [facility] Comment on above: Result Comment: The performance characteristics of phosphorus testing in heparinized plasma have been validated by the individual laboratory site where testing is performed. Testing on heparinized plasma is not approved by the FDA; however, such approval is not necessary. Performed By: #### R ENAL ####[id number] [place] [address] Potassium [Moles/Vol] 3.7 mmol/L Normal 3.5 - 5.3 [facility] Comment on above: Performed By: #### R ENAL ####[id number] [place] [address] Sodium [Moles/Vol] 142 mmol/L Normal 136 - 145 [facility] Comment on above: Performed By: #### R ENAL ####[id number] [place] [address] Urea nitrogen [Mass/Vol] 6 mg/dL Normal 6 - 23 [facility] Comment on above: Performed By: #### R ENAL ####[id number] [place] [address] Radiologyon 09-28-2021 XR Abdomen AP Normal [facility] [facility] Work Phone: Rehab Note-attemptedon 09-28 Rehab Note-attempted Rehab: Info: Disciplinephysical physical therapy technician Mode of Treatmentattempted Time IN15:30 Reason Treatment Not Performedpatient/family declined treatment, not feeling well Treatment Considerations/CommentsPt declined therapy at this time 2* increased fatigue, nausea. Pt stated NO! NO! NO! upon therapists arrival, even /c increased encouragement. Will reattempt as schedule allows. Short Term Goals: Bed Mobility: Date [id number] Bed Mobility: [place] Level Goalminimum assist (75% patients effort) Bed Mobility: Physical Assist Level Goal1-person assist, verbal cues Bed Mobility: Time Frame for Goal2 wks Transfer: Established [id number]-2102 Transfer: Transfer Type Ewuytcu-pq-seois/chair-to-b ed; mxb-lw-gmhha/wbsxg-hf-jpe Transfer: [place] Level Goalmoderate assist (50% patients effort) Transfer: Physical Assist Level Goal1-person assist; verbal cues Transfer: Assistive Device Goalrolling walker Transfer: Time Frame for Goal2 wks Gait: Established [id number] Gait: [place] Level Goalmoderate assist (50% patients effort) Gait: Physical Assist Level1-person assist; verbal cues Gait: Assistive Device Goalrolling walker Gait: Distance Goal15 feet Gait: Time Frame for Goal2 wks Balance: Established [id number]-2160 Balance: Goal DetailsSitting EOB 20 minutes with 0-1 UE support, SBA for static sitting, CGA for dynamic. Standing 1 minute with FWW and CGA Electronic Signatures: Yosi aCmpbell (TELEPHONER) (Signed 28-Sep-2021 15:32) Entered: Short Term Goals, Info Authored: Info, Short Term Goals Boone Broussard (PT) (Signed 01-Oct-2021 09:01) Co-Signer: Short Term Goals, Info Last Updated: 01-Oct-2021 09:01 by Boone Broussard (PT) Normal [facility] Rehab Note-attempted Rehab: Info: Mode of Treatmentattempted [...] 28-Sep-2021 15:28 by Silvana Marshall (OT) Normal [facility] Renal Function Panelon 09-28 Albumin BCP dye [...] RACE VARIABLE FOR THE IDMS-TRACEABLE CREATININE METHODS.https://jasn.asnjournals.org/content/early/ASN .5885712071 TH ABDOMEN AP VIEWon 022 ABDOMEN AP VIEW Patient Name: MORALES LEE STUDY: ABDOMEN AP VIEW; 09/28/2021 1:22 pm INDICATION: Abd. dist. . COMPARISON: 09/27/2021 abdominal radiograph. ACCESSION NUMBER(S): [id number] ORDERING CLINICIAN: CONCETTA SHI FINDINGS: Two AP [...] as stated. This study was interpreted at [facility], [place], [place]. 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 Has been on scheduled bowel regimen with [...] penicillin: Unknown Objective: Objective Information: T PRBPSpO2 [id number]/76000% Date/Time09/27 4: 4: 4: 4:00 Range (76 [...] C6-7 ACDFF, (more content not included)... Normal [facility] Daily Progress Note-Neurosur jinny 09-27-2021 Daily Progress Note-Neurosurgery Service: Neurosurgery Subjective Data: MORALES LEE is a 46 year old Female who is Hospital Day # 13 and POD #6 for posterior L4-L5 decompression;posterior L4-L5 arthrodesis. Objective Data: Objective Information: T PRBPSpO2 [id number]/98258% Date/Time09/26 11:0809/27 4: 4: 4: 4:00 Range(37C [...] 2021 6:00 am000 Sep 26, 2021 10:00 [id number] Sep 26, 2021 2:00 [id number] The Intake and Output Totals for the last 24 hours are: IntakeOutputNet [id number] Physical Exam by System: Neurological: A&Ox3 RUE [...] the note. I personally evaluated the patient [id number] Electronic Signatures: Chaparro Umana (Resident)) (Signed 27-Sep-2021 06:11) Authored: Service, Subjective Data, Objective Data, Assessment and Plan, Note Completion Natalia Palacios) (Signed 08-Oct-2021 14:31) Authored: Note Completion Co-Signer: Service, Subjective Data, Objective Data, Assessment and Plan, Note Completion Last Updated: 08-Oct-2021 14:31 by Natalia Palacios) Normal [facility] MAGNESIUMon 09-27-2021 Magnesium [Mass/Vol] 1.80 mg/dL Normal 1.60 - 2.40 [facility] Comment on above: Performed By: #### C BC #### [facility] [id number] [place] [address] Magnesium, Serumon Magnesium [Mass/Vol] 1.80 mg/dL See Below [facility]-G astroen terology-[place] [facility] Work Phone: Comment on above: Reference Range: 1.6 0 - 2.40 RENAL FUNCTION PANELon 09-27 Albumin [Mass/Vol] 3.3 g/dL Low 3.4 - 5.0 [facility] Comment on above: Performed By: #### R ENAL #### [facility] [address] [place] [address] Anion gap [Moles/Vol] 17 mmol/L Normal 10 - 20 [facility] Comment on above: Performed By: #### R ENAL #### [facility] [address] [place] [address] Calcium [Mass/Vol] 8.5 mg/dL Low 8.6 - 10.6 [facility] Comment on above: Performed By: #### R ENAL #### [facility] [address] [place] [address] Chloride [Moles/Vol] 98 mmol/L Normal 98 - 107 [facility] Comment on above: Performed By: #### R ENAL #### [facility] [address] [place] [address] Creatinine [Mass/Vol] 0.44 mg/dL Low 0.50 - 1.05 [facility] Comment on above: Performed By: #### R ENAL #### [facility] [address] [place] [address] eGFR FEMALE >90 Normal >90 [facility] Comment on above: Result Comment: CALC ULATIONS OF ESTIMATED GFR ARE PERFORMED USING THE 2020 CKD-EPI STUDY REFIT EQUATION WITHOUT THE RACE VARIABLE FOR THE IDMS-TRACEABLE CREATININE METHODS. https://jasn.asnjournals.org/content/early/ASN.2993207 988 Performed By: #### R ENAL #### [facility] [address] [place] [address] Glucose [Mass/Vol] 91 mg/dL Normal 74 - 99 [facility] Comment on above: Performed By: #### R ENAL #### [facility] [address] [place] [address] HCO3 (Bld) [Moles/Vol] 26 mmol/L Normal 21 - 32 [facility] Comment on above: Performed By: #### R ENAL #### [facility] [address] [place] [address] Phosphate [Mass/Vol] 4.0 mg/dL Normal 2.5 - 4.9 [facility] Comment on above: Result Comment: The performance characteristics of phosphorus testing in heparinized plasma have been validated by the individual laboratory site where testing is performed. Testing on heparinized plasma is not approved by the FDA; however, such approval is not necessary. Performed By: #### R ENAL #### [facility] [address] [place] [address] Potassium [Moles/Vol] 4.1 mmol/L Normal 3.5 - 5.3 [facility] Comment on above: Performed By: #### R ENAL #### [facility] [address] [place] [address] Sodium [Moles/Vol] 137 mmol/L Normal 136 - 145 [facility] Comment on above: Performed By: #### R ENAL #### [facility] [address] [place] [address] Urea nitrogen [Mass/Vol] 6 mg/dL Normal - [facility] Comment on above: Performed By: #### R ENAL #### [facility] [address] [place] [address] Radiologyon 09-27-2021 XR Abdomen AP Normal MG-Gastroen [...] 137 mmol/L 136 - 145 [facility]-Gas troen terology-[place] [facility] [facility] Work Phone: Urea nitrogen [Mass/Vol] 6 mg/dL 6 - 23 [facility]en [facility]ology[facility] [facility] [facility] Work Phone: Renal Function Panel >90 >90 [facility]-G astroen terology-[place] [facility] I Work Phone: Comment on above: CALCULATIONS OF IVY MATED GFR ARE PERFORMED USING THE 2020 CKD-EPI STUDY REFIT EQUATION WITHOUT THE RACE VARIABLE FOR THE IDMS-TRACEABLE CREATININE METHODS.https://jasn.asnjournals.org/content//ASN .0418853792 ABDOMEN AP VIEWon 022 ABDOMEN AP VIEW Patient Name: MORALES LEE STUDY: ABDOMEN AP VIEW; 09/27/2021 2:33 am INDICATION: vomiting, constipation . COMPARISON: None. ACCESSION NUMBER(S): [id number] ORDERING CLINICIAN: FIDEL MACIEL FINDINGS: 2 AP [...] as stated. This study was interpreted at [place], [place]. Electronically signed by: DWIGHT MOY MD [facility] Daily Progress Note-Neurosur jinny 09-26-2021 Daily Progress Note-Neurosurgery Service: Neurosurgery Subjective Data: MORALES LEE is a 46 year old Female who is Hospital Day # 12 and POD #5 for posterior L4-L5 decompression;posterior L4-L5 arthrodesis. Objective Data: Objective Information: T PRBPSpO2 [id number]/8299% Date/Time09/25 17: 12: 17: 17:08 Range (68 - 98 ) (21 - 23 ) (118 - 136 )/ (69 - 82 ) (92% - 99% ) Pain reported at 09/26 3:00: sleeping ---- Intake and Output ----- Mn/Dy/Year TimeIntakeOutputNet Sep 24, 2021 10:00 [id number] Sep 24, 2021 2:00 [id number] Sep 24, 2021 6:00 [id number] The Intake and Output Totals for the last 24 hours are: IntakeOutputNet [id number] Physical Exam by System: Neurological: A&Ox3 RUE [...] the note. I personally evaluated the patient [id number] Electronic Signatures: Jaya Mosquera (Resident)) (Signed 26-Sep-2021 07:08) Authored: Service, Subjective Data, Objective Data, Assessment and Plan, Note Completion Natalia Palacios) (Signed 08-Oct-2021 14:10) Authored: Note Completion Co-Signer: Service, Subjective Data, Objective Data, Assessment and Plan, Note Completion Last Updated: 08-Oct-2021 14:10 by Natalia Palacios) Normal [facility] Clinical Event Note-POD 4 / Abdominal assessmenton [...] for wound check 10/07/21 at 10:15 am, [facility] 5th floor - F/U with Dr. Frederick 11/03/21 at 1400, [facility] - Patient fitted for PRAFO boots by [...] plan of care. Electronic Signatures: Concetta Shi (ALUMINUM CAN COLLECTOR-GEODESIST) (Signed 25-Sep-2021 13:30) Authored: Clinical Event Note Last Updated: 25-Sep-2021 13:30 by Concetta Shi (ALUMINUM CAN COLLECTOR-GEODESIST) Normal [facility] Daily Progress Note-Neurosjudy stearns 09-25-2021 Daily Progress Note-Neurosurgery Service: Neurosurgery Subjective Data: MORALES LEE is a 46 year old Female who is Hospital Day # 11 and POD #4 for posterior L4-L5 decompression;posterior L4-L5 arthrodesis. Objective Data: Objective Information: T PRBPSpO2 [id number]/6799% Date/Time09/24 16: 16: 16: 16:00 Range (68 - 78 ) (18 - 19 ) (102 - 117 )/ (57 - 73 ) (95% - 99% ) As of 24-Sep-2021 21:40:00, patient is on 2 L/min of oxygen via nasal cannula. Pain reported at 09/24 21:40: 8 = Severe ---- Intake and Output ----- Mn/Dy/Year TimeIntakeOutputNet Sep 23, 2021 10:00 [id number] Sep 23, 2021 6:00 [id number] The Intake and Output Totals for the last 24 hours are: IntakeOutputNet [id number] Physical Exam by System: Neurological: A&Ox3 RUE [...] the note. I personally evaluated the patient [id number] Electronic Signatures: Lex Frederick) (Signed 25-Sep-2021 11:57) Authored: Note Completion Co-Signer: Service, Subjective Data, Objective Data, Assessment and Plan, Note Completion Alfredo Hendrickson (Resident)) (Signed 25-Sep-2021 05:56) Authored: Service, Subjective Data, Objective Data, Assessment and Plan, Note Completion Last Updated: 25-Sep-2021 11:57 by Lex Frederick) [facility] Rehab Xmjn-ba-zvfezgfgc - co -tx /c OT to address multidiscipon 09-25-2021 Rehab Prhs-fp-gidikjkiq - co-tx /c OT to address multidiscip Rehab: Info: Disciplinephysical physical therapy technician Mode of Treatmentphysical therapy; co-treatment; co-tx /c OT to address multidisciplinary functional needs and maximize pt's safety. Time IN15:05 Time OUT15:59 Total Treatment [id number] Patient in ... at end of sessionbed, [...] scooting/bridging; rolling right; rolling left Roll Left [place] (Bed Mobility)maximum assist (25% patient effort); 2 person assist; verbal cues; nonverbal cues (demo/gesture) Roll Right [place] (Bed Mobility)maximum assist (25% patient effort); 2 person assist; verbal cues; nonverbal cues (demo/gesture) Scoot/Bridge [place] (Bed Mobility)maximum assist (25% patient effort); 2 person assist; nonverbal cues (demo/gesture); verbal cues Gyvuzf-vr-Fuy [place] (Bed Mobility)maximum assist (25% patient effort); 2 person assist; verbal cues; nonverbal cues (demo/gesture) Qjc-hu-Scbzqo [place] (Bed Mobility)maximum assist (25% patient effort); 2 [...] unable to get to full standing. Sit-Stand [place] (Transfers)maximum assist (25% patient effort); verbal cues; nonverbal cues (demo/gesture); 2-3 persona assist Sit-Stand Assistive Device (Transfers)walker, front-wheeled Stand-Sit [place] (Transfers)maximum assist (25% patient effort); nonverbal cues [...] Score8 Short Term Goals: Bed Mobility: Date [id number]-[id number] Bed Mobility: [place] Level Goalminimum assist (75% patients effort) Bed Mobility: Physical Assist Level Goal1-person assist, verbal cues Bed Mobility: Time Frame for Goal2 wks Transfer: Established Transfer: Transfer Type Jjnogdt-xp-nczwp/chair-to-b ed; thc-cv-xthbj/dctit-ed-yoo Transfer: [place] Level Goalmoderate assist (50% patients effort) Transfer: Physical Assist Level Goal1-person assist; verbal cues Transfer: Assistive Device Goalrolling walker Transfer: Time Frame for Goal2 wks Gait: Established Gait: [place]eca Level Goalmoderate assist (50% patients effort) Gait: [...] goals is gradual Electronic Signatures: Yosi Campbell (TELEPHONER) (Signed 25-Sep-2021 16:59) Entered: Outcome Summary, Short Term Goals, Sensory, TherEx, Outcomes Tools, Info, Mobility/Tone Authored: Short Term Goals, Outcome Summary, TherEx, Outcomes Tools, Info, Mobility/Tone, Sensory Boone Broussard (PT) (Signed 01-Oct-2021 09:01) Co-Signer: Outcome Summary, Short Term Goals, Sensory, TherEx (more content not included)... Normal [facility] Rehab Note-leather fitter apy - Partial co-tx with PT to tue09-25-2021 Rehab Note-occupational therapy - Partial co-tx with PT to Rehab: Info: Disciplineoccupational therapist Mode of Treatmentoccupational therapy; Partial co-tx with PT to maximize pt's mobility and safety. Time IN15:03 Time OUT15:56 Total Treatment [id number] Patient in ... at end of sessionbed, [...] sit to supine; rolling right Roll Left [place] (Bed Mobility)Pt required assist to bend BLE at knees and to initiate turn at shoulders and hips, verbal cues for grasp on bed rail, technique, direction follow, and encouragement.; set up; verbal cues; maximum assist (25% patient effort); 2 person assist Roll Right [place] (Bed Mobility)Pt required assist to bend BLE at knees and to initiate turn at shoulders and hips, verbal cues for grasp on bed rail, technique, direction follow, and encouragement.; set up; verbal cues; maximum assist (25% patient effort); 2 person assist Scoot/Bridge [place] (Bed Mobility)boost HOB; set up; verbal cues; maximum assist (25% patient effort); 2 person assist Fsfbaw-ny-Yzs [place] (Bed Mobility)HOB elevated; set up; verbal cues; maximum assist (25% patient effort); 2 person assist Lmf-kl-Cglozn [place] (Bed Mobility)HOB elevated; set up; verbal cues; maximum assist (25% patient effort); 2 person assist Assistive Device (Bed Mobility)bed rails; draw sheet Transfer Assessment/Interventionssit to stand transfer Sit-Stand [place] (Transfers)set up; verbal cues; maximum assist (25% patient effort); x 2-3 assist Safety Issues Impacting Function (Mobility)ability to follow commands; awareness of need for assistance; insight into deficits/self awareness; judgment; problem solving Impairments Impacting Function (Mobility)balance; cognition; endurance/activity tolerance; pain; strength; postural/trunk control ADL: BADL Assessment/Interventiontoil eting; feeding; grooming; lower body dressing; upper body dressing; bathing Seneca Level (Bathing)set up; verbal cues; moderate assist (50% patient effort); 1 person assist Comment (Bathing)anticipated due to impaired balance, strength, and pain. [place] Level (Upper Body Dressing)set up; verbal cues; moderate assist (50% patient effort) Comment (Upper Body Dressing)anticipated due to impaired balance, strength, and pain. [place] Level (Lower Body Dressing)don; socks; dependent (less than 25% patient effort) Position (Lower Body Dressing)supine [place] Level (Grooming)set up; contact guard Comment (Grooming)anticipated due to impaired balance, strength, and pain. [place] Level (Feeding)set up; modified independence Comment (Feeding)anticipated [place] Level (Toileting)dependent (less than 25% patient effort); purewick Impairments, BADL Safety/Performancebalance; cognition; endurance/activity tolerance; strength; trunk/postural control Cognitive Impairments, BADL Safety/Performanceawareness , need for assistance; insight into deficits/self awareness; judgment; problem solving/reasoning Motor: Sitting, Static (Balance)good balance SBA Sitting, Dynamic (Balance)fair balance CGA Icx-hp-Gnuqj (Balance)poor balance Max A x 2-3 - attempted Standing, Static (Balance)unable to balance Standing, Dynamic (Balance)unable to balance Balance ActivitiesPt sat EOB ~30 minutes with SBA/CGA for safety. Pt demonstrated good sitting balance and trunk control. Pt attempted STS transfers 3x with (more content not included)... Normal [facility] Daily Progress Note-Nuha stearns 09-24-2021 Daily Progress Note-Neurosurgery Service: Neurosurgery Subjective Data: MORALES LEE is a 46 year old Female who is Hospital Day # 10 and POD #3 for posterior L4-L5 decompression;posterior L4-L5 arthrodesis. Objective Data: Objective Information: T PRBPSpO2 [id number]% Date/Time09/23 20:4809/23 20:4809/23 20:4809/23 20:4809/23 20:48 Range(35.5C - 36.1C ) (66 - 75 ) (16 - 19 ) (90 - 118 )/ (54 - 75 ) (98% - 99% ) As of 23-Sep-2021 22:43:00, patient is on 2 L/min of oxygen via nasal cannula. ---- Intake and Output ----- Mn/Dy/Year TimeIntakeOutputNet Sep 22, 2021 10:00 [id number] Sep 22, 2021 2:00 [id number] Sep 22, 2021 6:00 [id number] The Intake and Output Totals for the last 24 hours are: IntakeOutputNet [id number] Physical Exam by System: Neurological: A&Ox3 RUE [...] the note. I personally evaluated the patient [id number] Comments/ Additional Findings Doing well. Kyphotic posture and Back Pain from instability and traumatic chance fracture significantly improved as compared to preop. 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 Normal [facility] MAGNESIUMon 09-24-2021 Magnesium [Mass/Vol] 1.71 mg/dL Normal 1.60 - 2.40 [facility] Comment on above: Performed By: #### A FPA3 #### [facility] [address] [place] [address] Magnesium, Serumon Magnesium [Mass/Vol] 1.71 mg/dL See Below MG-G astroen terology-Rosendo moura 6 [facility] Work Phone: Comment on above: Reference Range: 1.6 0 - 2.40 RENAL FUNCTION PANELon 09-24 Albumin [Mass/Vol] 2.6 g/dL Low 3.4 - 5.0 [facility] Comment on above: Performed By: #### R ENAL ####[id number] [place] [address] Anion gap [Moles/Vol] 10 mmol/L Normal 10 - 20 [facility] Comment on above: Performed By: #### R ENAL ####[id number] [place] [address] Calcium [Mass/Vol] 7.7 mg/dL Low 8.6 - 10.6 [facility] Comment on above: Performed By: #### R ENAL ####[id number] [place] [address] Chloride [Moles/Vol] 108 mmol/L High 98 - 107 [facility] Comment on above: Performed By: #### R ENAL ####[id number] [place] [address] Creatinine [Mass/Vol] 0.39 mg/dL Low 0.50 - 1.05 [facility] Comment on above: Performed By: #### R ENAL ####[id number] [place] [address] eGFR FEMALE >90 Normal >90 [facility] Comment on above: Result Comment: CALC ULATIONS OF ESTIMATED GFR ARE PERFORMED USING THE 2020 CKD-EPI STUDY REFIT EQUATION WITHOUT THE RACE VARIABLE FOR THE IDMS-TRACEABLE CREATININE METHODS. https://jasn.asnjournals.org/content/early//ASN.5626389 988 Performed By: #### R ENAL ####[id number] [place] [address] Glucose [Mass/Vol] 92 mg/dL Normal 74 - 99 [facility] Comment on above: Performed By: #### R ENAL ####[id number] [place] [address] HCO3 (Bld) [Moles/Vol] 29 mmol/L Normal 21 - 32 [facility] Comment on above: Performed By: #### R ENAL ####[id number] [place] [address] Phosphate [Mass/Vol] 3.3 mg/dL Normal 2.5 - 4.9 [facility] Comment on above: Result Comment: The performance characteristics of phosphorus testing in heparinized plasma have been validated by the individual laboratory site where testing is performed. Testing on heparinized plasma is not approved by the FDA; however, such approval is not necessary. Performed By: #### R ENAL ####[id number] [place] [address] Potassium [Moles/Vol] 3.9 mmol/L Normal 3.5 - 5.3 [facility] Comment on above: Performed By: #### R ENAL ####[id number] [place] [address] Sodium [Moles/Vol] 143 mmol/L Normal 136 - 145 [facility] Comment on above: Performed By: #### R ENAL ####[id number] [place] [address] Urea nitrogen [Mass/Vol] 5 mg/dL Low 6 - 23 [facility] Comment on above: Performed By: #### R ENAL ####[id number] [place] [address] Rehab Note-attemptedon 09-24 Rehab Note-attempted Rehab: Info: Mode of Treatmentattempted Time IN15:00 Reason Treatment Not Performedpatient/family declined treatment; Pt declined participation in OT treatment stating she was on a very important call that she needed to take. Electronic Signatures: Silvana Marshall (OT) (Signed 24-Sep-2021 15:29) Authored: Info Last Updated: 24-Sep-2021 15:29 by Silvana Marshall (OT) Normal [facility] Rehab Note-physical therapyo n 09-24-2021 Rehab Note-physical [...] 24-Sep-2021 15:07 by Boone Broussard (PT) Normal [facility] Renal Function Panelon 09-24 Albumin BCP dye [...] RACE VARIABLE FOR THE IDMS-TRACEABLE CREATININE METHODS.https://jasn.asnjournals.org/content//ASN .7757377848 CBCon 09-23-2021 Erythrocyte distribution width (RBC) [Ratio] 13.1 % Normal 11.5 - 14.5 [facility] Comment on above: Performed By: #### C BC ####[id number] [place] [address] Hematocrit (Bld) [Volume fraction] 30.5 % Low 36.0 - 46.0 [facility] Comment on above: Performed By: #### C BC ####[id number] [place] [address] Hemoglobin (Bld) [Mass/Vol] 9.9 g/dL Low 12.0 - 16.0 [facility] Comment on above: Performed By: #### C BC ####[id number] [place] [address] MCHC (RBC) [Mass/Vol] 32.5 g/dL Normal 32.0 - 36.0 [facility] Comment on above: Performed By: #### C BC ####[id number] [place] [address] MCV (RBC) [Entitic vol] 92 fL Normal 80 - 100 [facility] Comment on above: Performed By: #### C BC ####[id number] [place] [address] NUCLEATED RBC 0.0 /100 WBC Normal 0.0-0.0 [facility] Comment on above: Performed By: #### C BC ####[id number] [place] [address] Platelets (Bld) [#/Vol] 244 10*3/uL Normal 150 - 450 [facility] Comment on above: Performed By: #### C BC ####[id number] [place] [address] RBC 3.33 x10E12/L Low 4.00 - 5.20 [facility] Comment on above: Performed By: #### C BC ####[id number] [place] [address] WBC (Bld) [#/Vol] 8.6 10*3/uL Normal 4.4 - 11.3 [facility] Comment on above: Performed By: #### C BC ####[id number] [place] [address] CBC AND DIFFERENTIALon 09-23 % AUTOMATED IMMATURE GRAN 0.4 % Normal 0.0 - 0.9 [facility] Comment on above: Result Comment: Jaleesa ture Granulocyte Count (IG) includes promyelocytes, myelocytes and metamyelocytes but does not include bands. Percent differential counts (%) should be interpreted in the context of the absolute cell counts (cells/L). Performed By: #### C BC #### [facility] [address] [place] [address] Basophils (Bld) [#/Vol] 0.03 10*3/uL Normal 0.00 - 0.10 [facility] Comment on above: Performed By: #### C BC #### [facility] [address] [place] [address] Basophils/100 WBC (Bld) 0.4 % Normal 0.0 - 2.0 [facility] Comment on above: Performed By: #### C BC #### [facility] [address] [place] [address] Eosinophils (Bld) [#/Vol] 0.27 10*3/uL Normal 0.00 - 0.70 [facility] Comment on above: Performed By: #### C BC #### [facility] [address] [place] [address] Eosinophils/100 WBC (Bld) 3.6 % Normal 0.0 - 6.0 [facility] Comment on above: Performed By: #### C BC #### [facility] [address] [place] [address] Erythrocyte distribution width (RBC) [Ratio] 13.2 % Normal 11.5 - 14.5 [facility] Comment on above: Performed By: #### C BC #### [facility] [address] [place] [address] Hematocrit (Bld) [Volume fraction] 30.9 % Low 36.0 - 46.0 [facility] Comment on above: Performed By: #### C BC #### [facility] [address] [place] [address] Hemoglobin (Bld) [Mass/Vol] 10.4 g/dL Low 12.0 - 16.0 [facility] Comment on above: Performed By: #### C BC #### [facility] [address] [place] [address] Lymphocytes (Bld) [#/Vol] 2.41 10*3/uL Normal 1.20 - 4.80 [facility] Comment on above: Performed By: #### C BC #### [facility] [address] [place] [address] Lymphocytes/100 WBC (Bld) 31.9 % Normal 13.0 - 44.0 [facility] Comment on above: Performed By: #### C BC #### [facility] [address] [place] [address] MCHC (RBC) [Mass/Vol] 33.7 g/dL Normal 32.0 - 36.0 [facility] Comment on above: Performed By: #### C BC #### [facility] [address] [place] [address] MCV (RBC) [Entitic vol] 91 fL Normal 80 - 100 [facility] Comment on above: Performed By: #### C BC #### [facility] [address] [place] [address] Monocytes (Bld) [#/Vol] 0.49 10*3/uL Normal 0.10 - 1.00 [facility] Comment on above: Performed By: #### C BC #### [facility] [address] [place] [address] Monocytes/100 WBC (Bld) 6.5 % Normal 2.0 - 10.0 [facility] Comment on above: Performed By: #### C BC #### [facility] [address] [place] [address] Neutrophils (Bld) [#/Vol] 4.32 10*3/uL Normal 1.20 - 7.70 [facility] Comment on above: Performed By: #### C BC #### [facility] [address] [place] [address] Neutrophils/100 WBC (Bld) 57.2 % Normal 40.0 - 80.0 [facility] Comment on above: Performed By: #### C BC #### [facility] [address] [place] [address] NUCLEATED RBC 0.0 /100 WBC Normal 0.0-0.0 [facility] Comment on above: Performed By: #### C BC #### [facility] [address] [place] [address] Platelets (Bld) [#/Vol] 228 10*3/uL Normal 150 - 450 [facility] Comment on above: Performed By: #### C BC #### [facility] [address] [place] [address] RBC 3.39 x10E12/L Low 4.00 - 5.20 [facility] Comment on above: Performed By: #### C BC #### [facility] [address] [place] [address] WBC (Bld) [#/Vol] 7.6 10*3/uL Normal 4.4 - 11.3 [facility] Comment on above: Performed By: #### C BC #### [facility] [address] [place] [address] Complete Blood Count + Diffe rentialon 01-19-2022 [...] % below low threshold See Below MG-Gastroen terology-Rosedno lwell 6 I Work Phone: Comment on [...] [Mass/Vol] 1.68 mg/dL Normal 1.60 - 2.40 [facility] Comment on above: Performed By: #### C BC #### [facility] [address] [place] [address] Magnesium, Serumon Magnesium [Mass/Vol] 1.68 mg/dL See [...] (Advanced Practice Nurse) done by Ambrocio Izaguirre ([facility]) Discharge - Partial Reconciliation: 23-Sep-2021 13:21 by: Ambrocio Izaguirre ([facility]) Discharge - Partial Reconciliation: 24-Sep-2021 10:12 by: Ambrocio Izaguirre ([facility]) Discharge - Partial Reconciliation: 30-Sep-2021 14:12 by: Concetta Shi ([facility]) Discharge - Partial Reconciliation: 30-Sep-2021 14:14 by: Concetta Shi ([facility]) Discharge - Reconciliation: 30-Sep-2021 14:24 by: Concetta Shi ([facility]) Discharge - Reset to Incomplete: 02-Oct-2021 15:36 by: Ambrocio Izaguirre ([facility]) Discharge - Reconciliation: 02-Oct-2021 15:40 by: Ambrocio Izaguirre ([facility]) Discharge - Reset to Incomplete: 02-Oct-2021 15:57 by: Ambrocio Izaguirre ([facility]) Discharge - Reconciliation: 02-Oct-2021 15:58 by: Ambrocio Izaguirre ([facility]) Home Medications EnteredHOME MEDICATIONS AT DISCHARGE DateReconciliation [...] not required (more content not included)... Normal [facility] PATH REVIEW-IMMUNOHEMATOLOGY on 09-23-2021 PATH REV-IMMUNOHEMOTOL PETARNohemi Normal [facility] Comment on above: Result Comment: By h [...] PATIENT. Performed By: #### A FPA3 #### [facility] [address] [place] [address] RENAL FUNCTION PANELon 09-23 Albumin [Mass/Vol] 2.7 g/dL Low 3.4 - 5.0 [facility] Comment on above: Performed By: #### V FPA3 #### [facility] [address] [place] [address] Anion gap [Moles/Vol] 10 mmol/L Normal 10 - 20 [facility] Comment on above: Performed By: #### V FPA3 #### [facility] [address] [place] [address] Calcium [Mass/Vol] 7.9 mg/dL Low 8.6 - 10.6 [facility] Comment on above: Performed By: #### V FPA3 #### [facility] [address] [place] [address] Chloride [Moles/Vol] 108 mmol/L High 98 - 107 [facility] Comment on above: Performed By: #### V FPA3 #### [facility] [address] [place] [address] Creatinine [Mass/Vol] 0.39 mg/dL Low 0.50 - 1.05 [facility] Comment on above: Performed By: #### V FPA3 #### [facility] [address] [place] [address] eGFR FEMALE >90 Normal >90 [facility] Comment on above: Result Comment: CALC ULATIONS OF ESTIMATED GFR ARE PERFORMED USING THE 2020 CKD-EPI STUDY REFIT EQUATION WITHOUT THE RACE VARIABLE FOR THE IDMS-TRACEABLE CREATININE METHODS. https://jasn.asnjournals.org/content/early//ASN.9006209 988 Performed By: #### V FPA3 #### [facility] [address] [place] [address] Glucose [Mass/Vol] 87 mg/dL Normal 74 - 99 [facility] Comment on above: Performed By: #### V FPA3 #### [facility] [address] [place] [address] HCO3 (Bld) [Moles/Vol] 29 mmol/L Normal 21 - 32 [facility] Comment on above: Performed By: #### V FPA3 #### [facility] [address] [place] [address] Phosphate [Mass/Vol] 2.7 mg/dL Normal 2.5 - 4.9 [facility] Comment on above: Result Comment: The performance characteristics of phosphorus testing in heparinized plasma have been validated by the individual laboratory site where testing is performed. Testing on heparinized plasma is not approved by the FDA; however, such approval is not necessary. Performed By: #### V FPA3 #### [facility] [address] [place] [address] Potassium [Moles/Vol] 3.6 mmol/L Normal 3.5 - 5.3 [facility] Comment on above: Performed By: #### V FPA3 #### [facility] [address] [place] [address] Sodium [Moles/Vol] 143 mmol/L Normal 136 - 145 [facility] Comment on above: Performed By: #### V FPA3 #### [facility] [address] [place] [address] Urea nitrogen [Mass/Vol] 9 mg/dL Normal 6 - 23 [facility] Comment on above: Performed By: #### V FPA3 #### [facility] [address] [place] [address] Rehab Note-individual therap yon 09-23-2021 Rehab Note-individual therapy Rehab: Info: Disciplinephysical therapist Mode of Treatmentphysical therapy; individual therapy Time IN14:50 Time OUT15:29 Total Treatment [id number] Patient in ... at end of sessionbed, [...] sit to supine; rolling right Roll Left [place] (Bed Mobility)verbal cues; maximum assist (25% patient effort); 1 person assist Roll Right [place] (Bed Mobility)maximum assist (25% patient effort); verbal cues; 1 person assist Scoot/Bridge [place] (Bed Mobility)verbal cues; maximum assist (25% patient effort); 2 person assist; boost HOB Ccdijm-wm-Tjv [place] (Bed Mobility)verbal cues; maximum assist (25% patient effort); 1 person assist Air-ae-Kukbfr [place] (Bed Mobility)set up; verbal cues; maximum assist (25% patient effort); 1 person assist Assistive Device (Bed Mobility)bed rails; draw sheet Transfer Assessment/Interventionssit to stand transfer; stand to sit transfer Sit-Stand [place] (Transfers)2 person assist; moderate assist (50% patient effort) Sit-Stand Assistive Device (Transfers)B arm-in-arm assist Stand-Sit [place] (Transfers)2 person assist; moderate assist (50% patient [...] 23-Sep-2021 15:50 by Boone Broussard (PT) Normal [facility] Renal Function Panelon 09-23 Albumin BCP dye [...] above high threshold 98 - 107 MG-Gastroen terology-Rosnedo lwell 6 I Work Phone: CO2 [Moles/Vol] [...] RACE VARIABLE FOR THE IDMS-TRACEABLE CREATININE METHODS.https://jasn.asnjournals.org/content/early//ASN .[id number] ANTIBODY IDENT.on 09-22-2021 ANTIBODY IDENT. Anti-E Normal [facility] Comment on above: Performed By: #### V FPA3 #### [facility] [address] [place] [address] CBCon 09-22-2021 Erythrocyte distribution width (RBC) [Ratio] 13.2 % Normal 11.5 - 14.5 [facility] Comment on above: Performed By: #### V FPA3 #### [facility] [address] [place] [address] Hematocrit (Bld) [Volume fraction] 30.6 % Low 36.0 - 46.0 [facility] Comment on above: Performed By: #### V FPA3 #### [facility] [address] [place] [address] Hemoglobin (Bld) [Mass/Vol] 10.2 g/dL Low 12.0 - 16.0 [facility] Comment on above: Performed By: #### V FPA3 #### [facility] [address] [place] [address] MCHC (RBC) [Mass/Vol] 33.3 g/dL Normal 32.0 - 36.0 [facility] Comment on above: Performed By: #### V FPA3 #### [facility] [address] [place] [address] MCV (RBC) [Entitic vol] 91 fL Normal 80 - 100 [facility] Comment on above: Performed By: #### V FPA3 #### [facility] [address] [place] [address] NUCLEATED RBC 0.0 /100 WBC Normal 0.0-0.0 [facility] Comment on above: Performed By: #### V FPA3 #### [facility] [address] [place] [address] Platelets (Bld) [#/Vol] 215 10*3/uL Normal 150 - 450 [facility] Comment on above: Performed By: #### V FPA3 #### [facility] [address] [place] [address] RBC 3.37 x10E12/L Low 4.00 - 5.20 [facility] Comment on above: Performed By: #### V FPA3 #### [facility] [address] [place] [address] WBC (Bld) [#/Vol] 9.6 10*3/uL Normal 4.4 - 11.3 [facility] Comment on above: Performed By: #### V FPA3 #### [facility] [address] [place] [address] CBC AND DIFFERENTIALon 09-22 % AUTOMATED IMMATURE GRAN 0.4 % Normal 0.0 - 0.9 [facility] Comment on above: Result Comment: Jaleesa ture Granulocyte Count (IG) includes promyelocytes, myelocytes and metamyelocytes but does not include bands. Percent differential counts (%) should be interpreted in the context of the absolute cell counts (cells/L). Performed By: #### C BCDF ####[id number] [place] [address] Basophils (Bld) [#/Vol] 0.02 10*3/uL Normal 0.00 - 0.10 [facility] Comment on above: Performed By: #### C BCDF ####[id number] [place] [address] Basophils/100 WBC (Bld) 0.2 % Normal 0.0 - 2.0 [facility] Comment on above: Performed By: #### C BCDF ####[id number] [place] [address] Eosinophils (Bld) [#/Vol] 0.04 10*3/uL Normal 0.00 - 0.70 [facility] Comment on above: Performed By: #### C BCDF ####[id number] [place] [address] Eosinophils/100 WBC (Bld) 0.4 % Normal 0.0 - 6.0 [facility] Comment on above: Performed By: #### C BCDF ####[id number] [place] [address] Erythrocyte distribution width (RBC) [Ratio] 13.2 % Normal 11.5 - 14.5 [facility] Comment on above: Performed By: #### C BCDF ####[id number] [place] [address] Hematocrit (Bld) [Volume fraction] 30.6 % Low 36.0 - 46.0 [facility] Comment on above: Performed By: #### C BCDF ####[id number] [place] [address] Hemoglobin (Bld) [Mass/Vol] 10.3 g/dL Low 12.0 - 16.0 [facility] Comment on above: Performed By: #### C BCDF ####[id number] [place] [address] Lymphocytes (Bld) [#/Vol] 2.19 10*3/uL Normal 1.20 - 4.80 [facility] Comment on above: Performed By: #### C BCDF ####[id number] [place] [address] Lymphocytes/100 WBC (Bld) 19.9 % Normal 13.0 - 44.0 [facility] Comment on above: Performed By: #### C BCDF ####[id number] [place] [address] MCHC (RBC) [Mass/Vol] 33.7 g/dL Normal 32.0 - 36.0 [facility] Comment on above: Performed By: #### C BCDF ####[id number] [place] [address] MCV (RBC) [Entitic vol] 90 fL Normal 80 - 100 [facility] Comment on above: Performed By: #### C BCDF ####[id number] [place] [address] Monocytes (Bld) [#/Vol] 0.71 10*3/uL Normal 0.10 - 1.00 [facility] Comment on above: Performed By: #### C BCDF ####[id number] [place] [address] Monocytes/100 WBC (Bld) 6.5 % Normal 2.0 - 10.0 [facility] Comment on above: Performed By: #### C BCDF ####[id number] [place] [address] Neutrophils (Bld) [#/Vol] 7.98 10*3/uL High 1.20 - 7.70 [facility] Comment on above: Performed By: #### C BCDF ####[id number] [place] [address] Neutrophils/100 WBC (Bld) 72.6 % Normal 40.0 - 80.0 [facility] Comment on above: Performed By: #### C BCDF ####[id number] [place] [address] NUCLEATED RBC 0.0 /100 WBC Normal 0.0-0.0 [facility] Comment on above: Performed By: #### C BCDF ####[id number] [place] [address] Platelets (Bld) [#/Vol] 242 10*3/uL Normal 150 - 450 [facility] Comment on above: Performed By: #### C BCDF ####[id number] [place] [address] RBC 3.39 x10E12/L Low 4.00 - 5.20 [facility] Comment on above: Performed By: #### C BCDF ####[id number] [place] [address] WBC (Bld) [#/Vol] 11.0 10*3/uL Normal 4.4 - 11.3 [facility] Comment on above: Performed By: #### C BCDF ####[id number] [place] [address] Complete Blood Count + Diffe vidya 09-22-2021 [...] with at bedside. 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 Objective: Objective Information: T PRBPSpO2 [id number]/5792% Date/Time09/22 0:001/ 8:001 8:001/18 8:001/18 8:00 Range(36.3C [...] Fair. Medications: Continuous Medications ----- 1. HYDROmorphone DRONE SOFTWARE DEVELOPMENT ENGINEER 25 mg/ NaCL 0.9% 50 mL: 2.6 mg/hr IV DRONE SOFTWARE DEVELOPMENT ENGINEER 2. Sodium Chloride 0.9% Infusion: 1000 mL [...] from Suboxone (more content not included)... Normal [facility] Daily Progress Note-Nuha stearns 09-22-2021 Daily Progress Note-Neurosurgery Service: Neurosurgery Subjective Data: MORALES LEE Elena is a 46 year old Female who is Hospital Day # 8 and POD #1 for posterior L4-L5 decompression;posterior L4-L5 arthrodesis. Objective Data: Objective Information: T PRBPSpO2 [id number]/5895% Date/Time09/22 0:001 0:001 0:001 0:001 0:00 Range(36.2C - 36.8C ) (82 - 109 ) (12 - 20 ) (85 - 132 )/ (49 - 89 ) (94% - 100% ) As of 21-Sep-2021 17:00:00, patient is on 4 L/min of oxygen via nasal cannula. Pain reported at 09/21 16:33: 5 = Moderate ---- Intake and Output ----- Mn/Dy/Year TimeIntakeOutputNet Sep 20, 2021 10:00 [id number] Sep 20, 2021 6:00 [id number] The Intake and Output Totals for the last 24 hours are: IntakeOutputNet [id number] Physical Exam by System: Neurological: A&Ox3 RUE [...] Chronic pain recs- intra-op ketamine, meloxicam post-op, DRONE SOFTWARE DEVELOPMENT ENGINEER until good PT eval, Suboxone as OP [...] the note. I personally evaluated the patient [id number] Electronic Signatures: Fidel Maciel (Resident)) (Signed 22-Sep-2021 00:35) Authored: Service, Subjective Data, Objective Data, Assessment and Plan, Note Completion Lex Frederick) (Signed 22-Sep-2021 10:31) Authored: Note Completion Co-Signer: Service, Subjective Data, Objective Data, Assessment and Plan, Note Completion Last Updated: 22-Sep-2021 10:31 by Lex Frederick) Normal [facility] Discharge Gizxetd8qb 01-18-2 022 Discharge Profile2 Discharge Orders: Anticipated Discharge Date: Anticipated Discharge [id number] Problem List: Additional Dx: Spinal stenosis of [...] Please call your Neurosurgeon's office (Dr. Frederick [phone]) if you have any questions. -If you [...] or twist. Instead, bend at knees to product picker objects. Wound Care: Inspect your incision [...] taking Acetamin (more content not included)... Normal [facility] LACTATEon 09-22-2021 Lactate [Moles/Vol] 0.8 mmol/L Normal 0.4 - 2.0 [facility] Comment on above: Result Comment: Trina puncture immediately after or during the administration of Metamizole may lead to falsely low results. Testing should be performed immediately prior to Metamizole dosing. Performed By: #### C BC #### [facility] [address] [place] [address] Laboratory - Hematology and Cell countson 09-22-2021 [...] {/100_WBC} 0.0-0.0 [facility]-Gastroe n terology-Rosendo moura 6 [facility] Work Phone: OT Evaluation v2-occupationa l therapy - co-eval with PT to mon 09-22-2021 OT Evaluation v2-occupational therapy - co-eval with PT to Rehab: Info: Mode of Treatmentoccupational therapy; co-eval with PT to maximize pt's mobility and safety. Time IN10:50 Time OUT11:40 Total Treatment Njzmidg23 Patient in ... at end of sessionbed, 3 railings up; alarm on Communicated with ... at end of sessionbedside nurse Patient Effortgood Symptoms Noted During/After Treatmentfatigue; increased pain Patient Profile Reviewedyes Onset of Illness/Injury or Date of [id number] Reason for Referral-09/18/21: s/p exploration of spinal [...] EOB sitting. Pertinent History of Current Functional Ocjgmsm24 y/o with hx of HTN, C6-7 ACDF, [...] TubesIV; triple lumen; telemetry; urethral catheter indwelling; DRONE SOFTWARE DEVELOPMENT ENGINEER pump, DAVOL drain, wound vac O2 Deliverynasal cannula; 4L Pre Treatment Patient Positionsupine Pre Treatment Blood Pressure Pkbfalez77 mmHg Pre Treatment Diastolic (mm Hg)46 mmHg Pre Treatment Heart Rate (beats/min)67 Pre Treatment Respiratory Rate (breaths/min)19 Pre Treatment SpO2 (%)96 % Pre Treatment Oxygen Deliverysupplemental O2 Pre Treatment CommentsMAP 56 During Treatment Patient Positionsitting During Treatment Blood Pressure Irxqtzar72 mmHg During Treatment Diastolic (mm Hg)77 mmHg [...] to sit; sit to supine Roll Left [place] (Bed Mobility)set up; verbal cues; 2 person assist; Pt required assist to bend BLE at (more content not included)... Normal [facility] PATH REVIEW-IMMUNOHEMATOLOGY on 09-22-2021 PATH REV-IMMUNOHEMOTOL ZURDO Normal [facility] Comment on above: Result Comment: By h [...] THIS PATIENT. Performed By: #### C #### [facility] [address] [place] [address] PT Evaluation q0-jv-kzilqvpz t - co-treatment with OT to maxion 09-22-2021 PT Evaluation h6-pp-rysbynxol - co-treatment with OT to maxi Rehab: Info: Mode of Treatmentphysical therapy; co-treatment; co-treatment with OT to maximize safety, mobility and ADL participation Time IN10:50 Time OUT11:40 Total Treatment Aciukzb12 Patient in ... at end of sessionbed, 3 railings up; alarm on Communicated with ... at end of sessionbedside nurse Patient Effortgood Symptoms Noted During/After Treatmentfatigue; increased pain Patient Profile Reviewedyes Onset of Illness/Injury or Date of [id number]-Wha-3801 Reason for Referral-09/18/21: s/p exploration of spinal [...] TubesIV; triple lumen; telemetry; urethral catheter indwelling; DRONE SOFTWARE DEVELOPMENT ENGINEER pump, DAVOL drain, wound vac O2 Deliverynasal cannula; 4L Pre Treatment Patient Positionsupine Pre Treatment Blood Pressure Bgpfdnqk71 mmHg Pre Treatment Diastolic (mm Hg)46 mmHg Pre Treatment Heart Rate (beats/min)67 Pre Treatment SpO2 (%)96 % Pre Treatment Oxygen Deliverysupplemental O2 During Treatment Patient Positionsitting During Treatment Blood Pressure Nfkxkdqk86 mmHg During Treatment Diastolic (mm Hg)77 mmHg [...] sit to supine; rolling right Roll Left Seneca (Bed Mobility)verbal cues; 2 person assist; Pt required assist to bend BLE at knees and to initiate turn at shoulders and hips, verbal cues for grasp on bed rail, technique, direction follow, and encouragement.; maximum assist (25% patient effort) Roll Right Seneca (Bed Mobility)2 person assist; maximum assist (25% patient effort); verbal cues Scoot/Bridge Seneca (Bed Mobility)verbal cues; maximum assist (25% patient effort); 2 person assist; boost HOB Eayhzd-we-Pzw [place] (Bed Mobility)verbal cues; maximum assist (25% patient effort); 1 person assist Xgl-vb-Adxoje [place] (Bed Mobility)set up; verbal cues; maximum assist (25% patient effort); 1 person assist Assistive Device (Bed Mobility)bed rails; draw sheet Impairments Impacting Function (Mobility)balance; cognition; endurance/activity tolerance; pain; strength; postural/trunk control; motor control Motor: Sitting, Static (Balance)SBA Sitting, Dynamic (Balance)CGA Mnm-wa-Rsncd (Balance)MADELIN this visit. 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 Pain LimitationFunctional mobility limited due pain; ADLs/IADLs limited due to pain; Participation limited by pain; RN or team was notified of limitations due to p (more content not included)... Normal [facility] RENAL FUNCTION PANELon 09-22 Albumin [Mass/Vol] 2.7 g/dL Low 3.4 - 5.0 [facility] Comment on above: Performed By: #### C #### [facility] [address] [place] [address] Anion gap [Moles/Vol] 10 mmol/L Normal 10 - 20 [facility] Comment on above: Performed By: #### C BC #### [facility] [address] [place] [address] Calcium [Mass/Vol] 7.8 mg/dL Low 8.6 - 10.6 [facility] Comment on above: Performed By: #### C BC #### [facility] [address] [place] [address] Chloride [Moles/Vol] 105 mmol/L Normal 98 - 107 [facility] Comment on above: Performed By: #### C BC #### [facility] [address] [place] [address] Creatinine [Mass/Vol] 0.49 mg/dL Low 0.50 - 1.05 [facility] Comment on above: Performed By: #### C BC #### [facility] [address] [place] [address] eGFR FEMALE >90 Normal >90 [facility] Comment on above: Result Comment: CALC ULATIONS OF ESTIMATED GFR ARE PERFORMED USING THE 2020 CKD-EPI STUDY REFIT EQUATION WITHOUT THE RACE VARIABLE FOR THE IDMS-TRACEABLE CREATININE METHODS. https://jasn.asnjournals.org/content//ASN.4187209 988 Performed By: #### C BC #### [facility] [address] [place] [address] Glucose [Mass/Vol] 93 mg/dL Normal 74 - 99 [facility] Comment on above: Performed By: #### C BC #### [facility] [address] [place] [address] HCO3 (Bld) [Moles/Vol] 29 mmol/L Normal 21 - 32 [facility] Comment on above: Performed By: #### C BC #### [facility] [address] [place] [address] Phosphate [Mass/Vol] 2.4 mg/dL Low 2.5 - 4.9 [facility] Comment on above: Result Comment: The performance characteristics of phosphorus testing in heparinized plasma have been validated by the individual laboratory site where testing is performed. Testing on heparinized plasma is not approved by the FDA; however, such approval is not necessary. Performed By: #### C BC #### [facility] [address] [place] [address] Potassium [Moles/Vol] 4.3 mmol/L Normal 3.5 - 5.3 [facility] Comment on above: Performed By: #### C BC #### [facility] [address] [place] [address] Sodium [Moles/Vol] 140 mmol/L Normal 136 - 145 [facility] Comment on above: Performed By: #### C BC #### [facility] [address] [place] [address] Urea nitrogen [Mass/Vol] 9 mg/dL Normal 6 - 23 [facility] Comment on above: Performed By: #### C BC #### [facility] [address] [place] [address] Renal Function Panelon 09-22 Albumin BCP dye [...] 3.5 - 5.3 [facility]-Gastroen terology-Rosendo lwell 6 [facility] Work Phone: Sodium [Moles/Vol] 140 mmol/L 136 - 145 [facility]-Gas troen terology-Rosendo lwell 6 I Work Phone: Urea nitrogen [Mass/Vol] 9 mg/dL 6 - 23 [facility]astroen terology-Rosendo lwell 6 I Work Phone: Renal Function Panel >90 >90 [facility]-G astroen terology-Rosendo lwell 6 [facility] Work Phone: Comment on above: CALCULATIONS OF IVY MATED GFR ARE PERFORMED USING THE 2020 CKD-EPI STUDY REFIT EQUATION WITHOUT THE RACE VARIABLE FOR THE IDMS-TRACEABLE CREATININE METHODS.https://jasn.asnjournals.org/content/early//ASN .9612305112 UA MICROSCOPICon 09-22-2021 RBC 6 /HPF Abnormal 0-5 [facility] Comment on above: Performed By: #### C BC #### [facility] [address] [place] [address] SQUAMOUS EPITH. CELLS 1 /HPF Normal [facility] Comment on above: Performed By: #### C BC #### [facility] [address] [place] [address] WBC 8 /HPF Abnormal 0-5 [facility] Comment on above: Performed By: #### C BC #### [facility] [address] [place] [address] URINALYSIS WITH CULTURE IF I NDICATEDon 09-22-2021 Appearance (U) CLEAR Normal CLEAR [facility] Comment on above: Performed By: #### U ARFX ####[id number] [place] [address] Bilirubin Ql (U) Negative Normal NEGATIVE [facility] Comment on above: Performed By: #### U ARFX ####[id number] [place] [address] Color (U) SANDRA Normal STRAW,YELLO W [facility] Comment on above: Performed By: #### U ARFX ####[id number] [place] [address] Glucose Ql (U) Negative Normal NEGATIVE [facility] Comment on above: Performed By: #### U ARFX ####[id number] [place] [address] Hemoglobin Ql (U) Negative Normal NEGATIVE [facility] Comment on above: Performed By: #### U ARFX ####[id number] [place] [address] Ketones Ql (U) 20 (1+) Abnormal NEGATIVE [facility] Comment on above: Performed By: #### U ARFX ####[id number] [place] [address] Leukocyte esterase Test strip Ql (U) Negative Normal NEGATIVE [facility] Comment on above: Performed By: #### U ARFX ####[id number] [place] [address] Nitrite Ql (U) Negative Normal NEGATIVE [facility] Comment on above: Performed By: #### U ARFX ####[id number] [place] [address] pH (U) 5.0 [pH] Normal 5.0 - 8.0 [facility] Comment on above: Performed By: #### U ARFX ####[id number] [place] [address] Protein Ql (U) 30 (1+) Abnormal NEGATIVE [facility] Comment on above: Performed By: #### U ARFX ####[id number] [id number] Specific gravity (U) [Rel density] 1.040 High 1.005 - 1.035 [facility] Comment on above: Performed By: #### U ARFX ####[id number] [id number] Urobilinogen (U) [Mass/Vol] 2.0 mg/dL High 0.0 - 1.9 [facility] Comment on above: Result Comment: Due to [...] positive urobilinogen. Performed By: #### U ARFX ####[id number] [id number] Lab Specimen Source Normal [facility] Comment on above: Performed By: #### U ARFX ####[id number] [id number] Performed By: #### C BC #### [facility] [address] [place] [id number] Color (U) SANDRA See Below [facility]-Gastroen terology-Rosendo [...] CULTURE,BACTERIALon URINE CULTURE,BACTERIAL PATIENT: MORALES LEE LOCATION: [place] [id number] BILL#: [id number] : 71 AGE: SEX: F ORDERED BY: AMBROCIO IZAGUIRRE SOURCE: URINE COLLECTED: 09/22/21 12:59 ANTIBIOTICS AT [facility].: RECEIVED : 09/22/21 14:59 SITE: R E S U L T S URINE CULTURE,BACTERIAL FINAL 09/23/21 09:04 NO SIGNIFICANT GROWTH. Normal [facility] Comment on above: Performed By: #### C BC #### [facility] [address] [place] [address] Urinalysis, Microscopicon Urinalysis, Microscopic 1 {/HPF} [facility]-Gastroen terology-Rosendo lwell 6 [facility] Work Phone: Urinalysis, Microscopic 6 {/HPF} Abnormal 0-5 [facility]-Gastroen terology-Rosendo lwell 6 [facility] Work Phone: Urinalysis, Microscopic 8 {/HPF} Abnormal 0-5 [facility]-Gastroen terology-Rosendo lwell 6 [facility] Work Phone: Comment on above: SOURCE: CBCon 09-21-2021 Erythrocyte distribution width (RBC) [Ratio] 13.1 % Normal 11.5 - 14.5 [facility] Comment on above: Performed By: #### R ENAL #### [facility] [address] [place] [address] Hematocrit (Bld) [Volume fraction] 34.5 % Low 36.0 - 46.0 [facility] Comment on above: Performed By: #### R ENAL #### [facility] [address] [place] [address] Hemoglobin (Bld) [Mass/Vol] 11.4 g/dL Low 12.0 - 16.0 [facility] Comment on above: Performed By: #### R ENAL #### [facility] [address] [place] [address] MCHC (RBC) [Mass/Vol] 33.0 g/dL Normal 32.0 - 36.0 [facility] Comment on above: Performed By: #### R ENAL #### [facility] [address] [place] [address] MCV (RBC) [Entitic vol] 91 fL Normal 80 - 100 [facility] Comment on above: Performed By: #### R ENAL #### [facility] [address] [place] [address] NUCLEATED RBC 0.0 /100 WBC Normal 0.0-0.0 [facility] Comment on above: Performed By: #### R ENAL #### [facility] [address] [place] [address] Platelets (Bld) [#/Vol] 269 10*3/uL Normal 150 - 450 [facility] Comment on above: Performed By: #### R ENAL #### [facility] [address] [place] [address] RBC 3.81 x10E12/L Low 4.00 - 5.20 [facility] Comment on above: Performed By: #### R ENAL #### [facility] [address] [place] [address] WBC (Bld) [#/Vol] 14.6 10*3/uL High 4.4 - 11.3 [facility] Comment on above: Performed By: #### R ENAL #### [facility] [address] [place] [address] Erythrocyte distribution width (RBC) [Ratio] 13.2 % Normal 11.5 - 14.5 [facility] Comment on above: Performed By: #### R ENAL #### [facility] [address] [place] [address] Hematocrit (Bld) [Volume fraction] 35.8 % Low 36.0 - 46.0 [facility] Comment on above: Performed By: #### R ENAL #### [facility] [address] [place] [address] Hemoglobin (Bld) [Mass/Vol] 11.9 g/dL Low 12.0 - 16.0 [facility] Comment on above: Performed By: #### R ENAL #### [facility] [address] [place] [address] MCHC (RBC) [Mass/Vol] 33.2 g/dL Normal 32.0 - 36.0 [facility] Comment on above: Performed By: #### R ENAL #### [facility] [address] [place] [address] MCV (RBC) [Entitic vol] 91 fL Normal 80 - 100 [facility] Comment on above: Performed By: #### R ENAL #### [facility] [address] [place] [address] NUCLEATED RBC 0.0 /100 WBC Normal 0.0-0.0 [facility] Comment on above: Performed By: #### R ENAL #### [facility] [address] [place] [address] Platelets (Bld) [#/Vol] 215 10*3/uL Normal 150 - 450 [facility] Comment on above: Performed By: #### R ENAL #### [facility] [address] [place] [address] RBC 3.93 x10E12/L Low 4.00 - 5.20 [facility] Comment on above: Performed By: #### R ENAL #### [facility] [address] [place] [address] WBC (Bld) [#/Vol] 14.8 10*3/uL High 4.4 - 11.3 [facility] Comment on above: Performed By: #### R ENAL #### [facility] [address] [place] [address] Daily Progress Note-Nuha stearns 09-21-2021 Daily Progress Note-Neurosurgery Service: Neurosurgery Subjective Data: MORALES LEE is a 46 year old Female who is Hospital Day # 7 and POD #3 for 1. Exploration of spinal fusion;2. Reduction of L4/5 dislocation;2. L5-pelvis instrumented fusion with posterolateral arthrodesis;4. Extension of instrumentation with multiple kwame construct and side connectors. Objective Data: Objective Information: T PRBPSpO2 [id number]/8495% Date/Time09/20 15: 4: 4: 4: 4:00 Range(36.9C [...] sleeping ---- Intake and Output ----- Mn/Dy/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 Normal [facility] Laboratory - Blood bankon ABO group Nom [...] lumbar spine September 18, 2021 ACCESSION NUMBER(S): [id number]; [id number] ORDERING CLINICIAN: DEVANTE STARKS TECHNIQUE: Sagittal axial [...] Electronically signed by: NATALIA WALL, DO Normal [facility] NR MRI T-SPINE WOon 09-21-19 NR MRI T-SPINE WO Patient Name: MORALES LEE STUDY: MRI T-SPINE WO; MRI L-SPINE WO; 09/20/2021 10:40 pm; 09/20/2021 10:42 pm INDICATION: postop foot weakness, Lie Flat: Yes, Pre Med: No . COMPARISON: MRI December 24, [address] of the lumbar spine September 18, 2021 ACCESSION NUMBER(S): [id number]; [id number] ORDERING CLINICIAN: DEVANTE STARKS TECHNIQUE: Sagittal axial [...] S1-2. Electronically signed by: NATALIA WALL, Normal [facility] No Panel Informationon 09-21 0.0 {/100_WBC} 0.0-0.0 [...] Preop Checklist Preop Checklist: Preop Checklist: Arrival [id number] Arrival Time11:00 Procedure Typere-exploration of spine Temperature C36.2 degrees C Temperature F97.1 degrees F Heart Rate91 beats per minute Respiratory Rate18 breath per minute Blood Pressure Bgpzmkxx931 mm/Hg Blood Pressure Xfuuynflj55 mm/Hg COVID 19 Results in Last 7 [...] 21-Sep-2021 11:17 by Linh Buchanan (RN) Normal [facility] REQUEST-LEUKOREDUCED RED ANJU LSon 09-21-2021 REQUEST-LEUKOREDUCED RED CELLS ORDER RECD Normal [facility] Comment on above: Performed By: #### A FPA3 #### [facility] [address] [place] [id number] TYPE + SCREENon 09-21-2021 ABO TYPE O Normal [facility] Comment on above: Performed By: #### A FPA3 #### [facility] [address] [place] [id number] RH TYPE Positive Normal [facility] Comment on above: Performed By: #### A FPA3 #### [facility] [address] [place] [id number] ABO TYPE Canceled Normal [facility] Comment on above: Order Comment: VENECIA ESPINO, 09/21/2021 05:08TEST TYPE + SCREEN WAS CANCELLED, 09/21/2021 05:06 NO PHLEB ID ON TUBE. Result Comment: EULA ESPINO, 09/21/2021 05:08 Performed By: #### A FPA3 #### [facility] [address] [place] [id number] RH TYPE Canceled Normal [facility] Comment on above: Order Comment: VENECIA ESPINO, 09/21/2021 05:08TEST TYPE + SCREEN WAS CANCELLED, 09/21/2021 05:06 NO PHLEB ID ON TUBE. Result Comment: CALL ED RN AFSANEH ESPINO, 09/21/2021 05:08 Performed By: #### A FPA3 #### [facility] [address] [place] [address] CBCon 09-20-2021 Erythrocyte distribution width (RBC) [Ratio] 13.2 % Normal 11.5 - 14.5 [facility] Comment on above: Performed By: #### C BC #### [facility] [address] [place] [address] Hematocrit (Bld) [Volume fraction] 30.8 % Low 36.0 - 46.0 [facility] Comment on above: Performed By: #### C BC #### [facility] [address] [place] [address] Hemoglobin (Bld) [Mass/Vol] 9.8 g/dL Low 12.0 - 16.0 [facility] Comment on above: Performed By: #### C BC #### [facility] [address] [place] [address] MCHC (RBC) [Mass/Vol] 31.8 g/dL Low 32.0 - 36.0 [facility] Comment on above: Performed By: #### C BC #### [facility] [address] [place] [address] MCV (RBC) [Entitic vol] 93 fL Normal 80 - 100 [facility] Comment on above: Performed By: #### C BC #### [facility] [address] [place] [address] NUCLEATED RBC 0.0 /100 WBC Normal 0.0-0.0 [facility] Comment on above: Performed By: #### C BC #### [facility] [address] [place] [address] Platelets (Bld) [#/Vol] 224 10*3/uL Normal 150 - 450 [facility] Comment on above: Performed By: #### C BC #### [facility] [address] [place] [address] RBC 3.32 x10E12/L Low 4.00 - 5.20 [facility] Comment on above: Performed By: #### C BC #### [facility] [address] [place] [address] WBC (Bld) [#/Vol] 12.1 10*3/uL High 4.4 - 11.3 [facility] Comment on above: Performed By: #### C BC #### [facility] [address] [place] [address] Daily Progress Note-Neurosur leonidasyon 09-20-2021 Daily Progress Note-Neurosurgery Service: Neurosurgery Subjective Data: MORALES LEE is a 46 year old Female who is Hospital Day # 6 and POD #2 for 1. Exploration of spinal fusion;2. Reduction of L4/5 dislocation;2. L5-pelvis instrumented fusion with posterolateral arthrodesis;4. Extension of instrumentation with multiple kwame construct and side connectors. Objective Data: Objective Information: T PRBPSpO2 [id number]/5095% Date/Time09/19 16: 1:341 16: 1:341 1:34 Range(36.7C - 36.7C ) (84 - 110 ) (18 - 18 ) (82 - 118 )/ (50 - 97 ) (94% - 97% ) As of 19-Sep-2021 08:00:00, patient is on 2 L/min of oxygen via nasal cannula. 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, Suboxone as OP [...] Updated: 21-Sep-2021 11:28 by Perez Carlisle) Normal [facility] Laboratory - Hematology and Cell countson 09-20-2021 [...] 20-Sep-2021 12:25 by Carole Carlos (OT) Normal [facility] PT Evaluation v2-attemptedon 09-20-2021 PT Evaluation v2-attempted Rehab: Info: Mode of Treatmentattempted Time IN12:00 Evaluation Not PerformedPer RN pt not appropriate for therapy, pt continues to have low BP and plan to receive blood, will hold and reattempt as appropriate Electronic Signatures: Kaykay Yoo (PT) (Signed 20-Sep-2021 12:42) Authored: Info Last Updated: 20-Sep-2021 12:42 by Kaykay Yoo (PT) Normal [facility] REQUEST-LEUKOREDUCED RED ANJU LSon 09-20-2021 REQUEST-LEUKOREDUCED RED CELLS ORDER RECD Normal [facility] Comment on above: Performed By: #### R ENAL #### [facility] [address] [place] [address] CBCon 09-19-2021 Erythrocyte distribution width (RBC) [Ratio] 12.4 % Normal 11.5 - 14.5 [facility] Comment on above: Performed By: #### R ENAL #### [facility] [address] [place] [address] Hematocrit (Bld) [Volume fraction] 38.3 % Normal 36.0 - 46.0 [facility] Comment on above: Performed By: #### R ENAL #### [facility] [address] [place] [address] Hemoglobin (Bld) [Mass/Vol] 13.4 g/dL Normal 12.0 - 16.0 [facility] Comment on above: Performed By: #### R ENAL #### [facility] [address] [place] [address] MCHC (RBC) [Mass/Vol] 35.0 g/dL Normal 32.0 - 36.0 [facility] Comment on above: Performed By: #### R ENAL #### [facility] [address] [place] [address] MCV (RBC) [Entitic vol] 85 fL Normal 80 - 100 [facility] Comment on above: Performed By: #### R ENAL #### [facility] [address] [place] [address] NUCLEATED RBC 0.0 /100 WBC Normal 0.0-0.0 [facility] Comment on above: Performed By: #### R ENAL #### [place] [id number] [place] [address] Platelets (Bld) [#/Vol] 326 10*3/uL Normal 150 - 450 [facility] Comment on above: Performed By: #### R ENAL #### [facility] [address] [place] [address] RBC 4.51 x10E12/L Normal 4.00 - 5.20 [facility] Comment on above: Performed By: #### R ENAL #### [facility] [address] [place] [address] WBC (Bld) [#/Vol] 20.5 10*3/uL High 4.4 - 11.3 [facility] Comment on above: Performed By: #### R ENAL #### [facility] [address] [place] [address] CBC AND DIFFERENTIALon 09-19 % AUTOMATED IMMATURE GRAN 0.6 % Normal 0.0 - 0.9 [facility] Comment on above: Result Comment: Jaleesa ture Granulocyte Count (IG) includes promyelocytes, myelocytes and metamyelocytes but does not include bands. Percent differential counts (%) should be interpreted in the context of the absolute cell counts (cells/L). Performed By: #### V FPA3 #### [facility] [address] [place] [address] Basophils (Bld) [#/Vol] 0.03 10*3/uL Normal 0.00 - 0.10 [facility] Comment on above: Performed By: #### V FPA3 #### [facility] [address] [place] [address] Basophils/100 WBC (Bld) 0.1 % Normal 0.0 - 2.0 [facility] Comment on above: Performed By: #### V FPA3 #### [facility] [address] [place] [address] Eosinophils (Bld) [#/Vol] 0.01 10*3/uL Normal 0.00 - 0.70 [facility] Comment on above: Performed By: #### V FPA3 #### [facility] [address] [place] [address] Eosinophils/100 WBC (Bld) 0.0 % Normal 0.0 - 6.0 [facility] Comment on above: Performed By: #### V FPA3 #### [facility] [address] [place] [address] Erythrocyte distribution width (RBC) [Ratio] 12.9 % Normal 11.5 - 14.5 [facility] Comment on above: Performed By: #### V FPA3 #### [facility] [address] [place] [address] Hematocrit (Bld) [Volume fraction] 38.3 % Normal 36.0 - 46.0 [facility] Comment on above: Performed By: #### V FPA3 #### [facility] [address] [place] [address] Hemoglobin (Bld) [Mass/Vol] 12.7 g/dL Normal 12.0 - 16.0 [facility] Comment on above: Performed By: #### V FPA3 #### [facility] [address] [place] [address] Lymphocytes (Bld) [#/Vol] 2.89 10*3/uL Normal 1.20 - 4.80 [facility] Comment on above: Performed By: #### V FPA3 #### [facility] [address] [place] [address] Lymphocytes/100 WBC (Bld) 13.5 % Normal 13.0 - 44.0 [facility] Comment on above: Performed By: #### V FPA3 #### [facility] [address] [place] [address] MCHC (RBC) [Mass/Vol] 33.2 g/dL Normal 32.0 - 36.0 [facility] Comment on above: Performed By: #### V FPA3 #### [facility] [address] [place] [address] MCV (RBC) [Entitic vol] 89 fL Normal 80 - 100 [facility] Comment on above: Performed By: #### V FPA3 #### [facility] [address] [place] [address] Monocytes (Bld) [#/Vol] 1.23 10*3/uL High 0.10 - 1.00 [facility] Comment on above: Performed By: #### V FPA3 #### [facility] [address] [place] [address] Monocytes/100 WBC (Bld) 5.7 % Normal 2.0 - 10.0 [facility] Comment on above: Performed By: #### V FPA3 #### [facility] [address] [place] [address] Neutrophils (Bld) [#/Vol] 17.16 10*3/uL High 1.20 - 7.70 [facility] Comment on above: Performed By: #### V FPA3 #### [facility] [address] [place] [address] Neutrophils/100 WBC (Bld) 80.1 % Normal 40.0 - 80.0 [facility] Comment on above: Performed By: #### V FPA3 #### [facility] [address] [place] [address] NUCLEATED RBC 0.0 /100 WBC Normal 0.0-0.0 [facility] Comment on above: Performed By: #### V FPA3 #### [facility] [address] [place] [address] Platelets (Bld) [#/Vol] 401 10*3/uL Normal 150 - 450 [facility] Comment on above: Performed By: #### V FPA3 #### [facility] [address] [place] [address] RBC 4.28 x10E12/L Normal 4.00 - 5.20 [facility] Comment on above: Performed By: #### V FPA3 #### [facility] [address] [place] [address] WBC (Bld) [#/Vol] 21.5 10*3/uL High 4.4 - 11.3 [facility] Comment on above: Performed By: #### V FPA3 #### [facility] [address] [place] [address] COAGULATION SCREENon 022 aPTT Coag (Bld) [Time] 29 s Normal 26 - 39 [facility] Comment on above: Result Comment: Note new reference range as of 08/04/2021 at 10:00am. Performed By: #### R ENAL #### [facility] [address] [place] [address] PT Coag (PPP) [Time] 11.5 s Normal 9.8 - 13.4 [facility] Comment on above: Result Comment: Note new reference range as of 08/04/2021 at 10:00am. Performed By: #### R ENAL #### [facility] [address] [place] [address] PT, INR 1.0 Normal 0.9 - 1.1 [facility] Comment on above: Performed By: #### R RASHAD #### [facility] [address] [place] [address] Complete Blood Count + Diffe vidya 09-19-2021 [...] 0.6 % 0.0 - 0.9 [facility]-Gastroen [facility]ology-[facility] I Work Phone: Comment on above: [...] connectors. Objective Data: Objective Information: T PRBPSpO2 [id number]/8596% Date/Time09/18 17: 17: 17: 17: 17:40 Range(36.4C [...] ----- Mn/Dy/Year TimeIntakeOutputNet Sep 17, 2021 10:00 [id number] The Intake and Output Totals for the last 24 hours are: IntakeOutputNet [id number] Physical Exam by System: Neurological: A&Ox3 RUE D5, B5, T5, HG5, IO5 LUE D4+, B4+, T4+, HG4+, IO5 RLE HF 4+, KE4+, PF5, DF5 (pain limited) LLE HF 4-, KE4-, PF4, DF5 Recent Lab Results: Results: Recent Arterial Blood Gas Results 09/18/2021 11:48 [id number] 24 h range: ( 219 - 224 ) pH7.44 24 h range: ( 7.44 - 7.45 ) kWB917 24 h range: ( 37 - 40 ) BA2346 24 h range: ( 100 - 100 ) Base Excess2.8 24 h range: ( 1.8 - 2.8 ) Vuojzpxkxww52.2 24 h range: ( 25.7 - 27.2 [...] the note. I personally evaluated the patient [id number] Comments/ Additional Findings Patients postoperative CT scan [...] Assessment an (more content not included)... Normal [facility] Laboratory - Coagulationon 0 09-19-2021 aPTT Coag [...] [Mass/Vol] 1.59 mg/dL Low 1.60 - 2.40 [facility] Comment on above: Performed By: #### R ENAL #### [facility] [address] [place] [address] PT Evaluation v2-attemptedon 09-19-2021 PT Evaluation v2-attempted Rehab: Info: Mode of Treatmentattempted Time IN11:37 Time OUT11:50 Total Treatment [id number] Evaluation Not PerformedHistory obtained, BP assessed in supine 79/54mmHg, RN notified and redone with 71/51mmHg, will hold PT eval at this time and reattempt as medically appropriate Electronic Signatures: Kaykay Yoo (PT) (Signed 19-Sep-2021 12:14) Authored: Info Last Updated: 19-Sep-2021 12:14 by Kaykay Yoo (PT) Normal [facility] RENAL FUNCTION PANELon 09-19 Albumin [Mass/Vol] 3.4 g/dL Normal 3.4 - 5.0 [facility] Comment on above: Performed By: #### A FPA3 #### [facility] [address] [place] [address] Anion gap [Moles/Vol] 18 mmol/L Normal 10 - 20 [facility] Comment on above: Performed By: #### A FPA3 #### [facility] [address] [place] [address] Calcium [Mass/Vol] 8.3 mg/dL Low 8.6 - 10.6 [facility] Comment on above: Performed By: #### A FPA3 #### [facility] [address] [place] [address] Chloride [Moles/Vol] 100 mmol/L Normal 98 - 107 [facility] Comment on above: Performed By: #### A FPA3 #### [facility] [address] [place] [address] Creatinine [Mass/Vol] 0.60 mg/dL Normal 0.50 - 1.05 [facility] Comment on above: Performed By: #### A FPA3 #### [facility] [address] [place] [address] eGFR FEMALE >90 Normal >90 [facility] Comment on above: Result Comment: CALC ULATIONS OF ESTIMATED GFR ARE PERFORMED USING THE 2020 CKD-EPI STUDY REFIT EQUATION WITHOUT THE RACE VARIABLE FOR THE IDMS-TRACEABLE CREATININE METHODS. https://jasn.asnjournals.org/content/early/ASN.5240599 988 Performed By: #### A FPA3 #### [facility] [address] [place] [address] Glucose [Mass/Vol] 82 mg/dL Normal 74 - 99 [facility] Comment on above: Performed By: #### A FPA3 #### [facility] [address] [place] [address] HCO3 (Bld) [Moles/Vol] 26 mmol/L Normal 21 - 32 [facility] Comment on above: Performed By: #### A FPA3 #### [facility] [address] [place] [address] Phosphate [Mass/Vol] 2.8 mg/dL Normal 2.5 - 4.9 [facility] Comment on above: Result Comment: The performance characteristics of phosphorus testing in heparinized plasma have been validated by the individual laboratory site where testing is performed. Testing on heparinized plasma is not approved by the FDA; however, such approval is not necessary. Performed By: #### A FPA3 #### [facility] [address] [place] [address] Potassium [Moles/Vol] 4.5 mmol/L Normal 3.5 - 5.3 [facility] Comment on above: Performed By: #### A FPA3 #### [facility] [address] [place] [address] Sodium [Moles/Vol] 139 mmol/L Normal 136 - 145 [facility] Comment on above: Performed By: #### A FPA3 #### [facility] [address] [place] [address] Urea nitrogen [Mass/Vol] 9 mg/dL Normal 6 - 23 [facility] Comment on above: Performed By: #### A FPA3 #### [facility] [address] [place] [address] Albumin [Mass/Vol] 3.6 g/dL Normal 3.4 - 5.0 [facility] Comment on above: Performed By: #### R ENAL #### [facility] [address] [place] [address] Anion gap [Moles/Vol] 13 mmol/L Normal 10 - 20 [facility] Comment on above: Performed By: #### R ENAL #### [facility] [address] [place] [address] Calcium [Mass/Vol] 8.9 mg/dL Normal 8.6 - 10.6 [facility] Comment on above: Performed By: #### R ENAL #### [facility] [address] [place] [address] Chloride [Moles/Vol] 100 mmol/L Normal 98 - 107 [facility] Comment on above: Performed By: #### R ENAL #### [facility] [address] [place] [address] Creatinine [Mass/Vol] 0.51 mg/dL Normal 0.50 - 1.05 [facility] Comment on above: Performed By: #### R ENAL #### [facility] [address] [place] [address] eGFR FEMALE >90 Normal >90 [facility] Comment on above: Result Comment: CALC ULATIONS OF ESTIMATED GFR ARE PERFORMED USING THE 2020 CKD-EPI STUDY REFIT EQUATION WITHOUT THE RACE VARIABLE FOR THE IDMS-TRACEABLE CREATININE METHODS. https://jasn.asnjournals.org/content//ASN.4757314 988 Performed By: #### R ENAL #### [facility] [address] [place] [address] Glucose [Mass/Vol] 123 mg/dL High 74 - 99 [facility] Comment on above: Performed By: #### R ENAL #### [facility] [address] [place] [address] HCO3 (Bld) [Moles/Vol] 28 mmol/L Normal 21 - 32 [facility] Comment on above: Performed By: #### R ENAL #### [facility] [address] [place] [address] Phosphate [Mass/Vol] 2.8 mg/dL Normal 2.5 - 4.9 [facility] Comment on above: Result Comment: The performance characteristics of phosphorus testing in heparinized plasma have been validated by the individual laboratory site where testing is performed. Testing on heparinized plasma is not approved by the FDA; however, such approval is not necessary. Performed By: #### R ENAL #### [facility] [address] [place] [address] Potassium [Moles/Vol] 4.3 mmol/L Normal 3.5 - 5.3 [facility] Comment on above: Performed By: #### R ENAL #### [facility] [address] [place] [address] Sodium [Moles/Vol] 137 mmol/L Normal 136 - 145 [facility] Comment on above: Performed By: #### R ENAL #### [facility] [address] [place] [address] Urea nitrogen [Mass/Vol] 8 mg/dL Normal 6 - 23 [facility] Comment on above: Performed By: #### R ENAL #### [facility] [address] [place] [address] Renal Function Panelon 09-19 Albumin BCP dye [...] RACE VARIABLE FOR THE IDMS-TRACEABLE CREATININE METHODS.https://jasn.asnjournals.org/content/early/ASN .1651765404 ANTIBODY IDENT.on 09-18-2021 ANTIBODY IDENT. Anti-E Normal [facility] Comment on above: Performed By: #### A FPA3 #### [facility] [address] [place] [address] ARTERIAL FULL PANELon 2021 Anion gap [Moles/Vol] 5 mmol/L Low 10 - 25 [facility] Comment on above: Performed By: #### A FPA3 ####[id number] [place] [address] BASE EXCESS-BLOOD 2.8 mmol/L Normal -2.0 - 3.0 [facility] Comment on above: Performed By: #### A FPA3 ####[id number] [place] [address] BICARB, CALCULATED 27.2 mmol/L High 22.0 - 26.0 [facility] Comment on above: Performed By: #### A FPA3 ####[id number] [place] [address] CALCIUM,IONIZED 1.20 mmol/L Normal 1.10 - 1.33 [facility] Comment on above: Performed By: #### A FPA3 ####[id number] [place] [address] Chloride [Moles/Vol] 106 mmol/L Normal 98 - 107 [facility] Comment on above: Performed By: #### A FPA3 ####[id number] [place] [address] Glucose [Mass/Vol] 149 mg/dL High 74 - 99 [facility] Comment on above: Performed By: #### A FPA3 ####[id number] [place] [address] Hematocrit (Bld) [Volume fraction] 38.0 % Normal 36.0 - 46.0 [facility] Comment on above: Performed By: #### A FPA3 ####[id number] [place] [address] HGB,CALCULATED 12.9 g/dL Normal 12.0 - 16.0 [facility] Comment on above: Performed By: #### A FPA3 ####[id number] [place] [address] Lactate [Moles/Vol] 0.9 mmol/L Normal 0.4 - 2.0 [facility] Comment on above: Performed By: #### A FPA3 ####[id number] [place] [address] Oxygen (Bld) [Partial pressure] 219 mm[Hg] High 85 - 95 [facility] Comment on above: Performed By: #### A FPA3 ####[id number] [place] [address] PATIENT TEMPERATURE 37.0 degrees C Normal [facility] Comment on above: Result Comment: NOTE : PATIENT RESULTS ARE NOT CORRECTED FOR TEMPERATURE. Performed By: #### A FPA3 ####[id number] [place] [address] PCO2 40 mmHg Normal 38 - 42 [facility] Comment on above: Performed By: #### A FPA3 ####[id number] [place] [address] pH (Bld) 7.44 [pH] High 7.38 - 7.42 [facility] Comment on above: Performed By: #### A FPA3 ####[id number] [place] [address] Potassium [Moles/Vol] 4.4 mmol/L Normal 3.5 - 5.3 [facility] Comment on above: Performed By: #### A FPA3 ####[id number] [place] [address] SO2 100 % Normal 94 - 100 [facility] Comment on above: Performed By: #### A FPA3 ####[id number] [place] [address] Sodium [Moles/Vol] 134 mmol/L Low 136 - 145 [facility] Comment on above: Performed By: #### A FPA3 ####[id number] [place] [address] Anion gap [Moles/Vol] 7 mmol/L Low 10 - 25 [facility] Comment on above: Performed By: #### A FPA3 #### [facility] [address] [place] [address] BASE EXCESS-BLOOD 1.8 mmol/L Normal -2.0 - 3.0 [facility] Comment on above: Performed By: #### A FPA3 #### [facility] [address] [place] [address] BICARB, CALCULATED 25.7 mmol/L Normal 22.0 - 26.0 [facility] Comment on above: Performed By: #### A FPA3 #### [facility] [address] [place] [address] CALCIUM,IONIZED 1.20 mmol/L Normal 1.10 - 1.33 [facility] Comment on above: Performed By: #### A FPA3 #### [facility] [address] [place] [address] Chloride [Moles/Vol] 105 mmol/L Normal 98 - 107 [facility] Comment on above: Performed By: #### A FPA3 #### [facility] [address] [place] [address] Glucose [Mass/Vol] 174 mg/dL High 74 - 99 [facility] Comment on above: Performed By: #### A FPA3 #### [facility] [address] [place] [address] Hematocrit (Bld) [Volume fraction] 37.0 % Normal 36.0 - 46.0 [facility] Comment on above: Performed By: #### A FPA3 #### [facility] [address] [place] [address] HGB,CALCULATED 12.6 g/dL Normal 12.0 - 16.0 [facility] Comment on above: Performed By: #### A FPA3 #### [facility] [address] [place] [address] Lactate [Moles/Vol] 1.1 mmol/L Normal 0.4 - 2.0 [facility] Comment on above: Performed By: #### A FPA3 #### [facility] [address] [place] [address] Oxygen (Bld) [Partial pressure] 224 mm[Hg] High 85 - 95 [facility] Comment on above: Performed By: #### A FPA3 #### [facility] [address] [place] [address] PATIENT TEMPERATURE 37.0 degrees C Normal [facility] Comment on above: Result Comment: NOTE : PATIENT RESULTS ARE NOT CORRECTED FOR TEMPERATURE. Performed By: #### A FPA3 #### [facility] [address] [place] [address] PCO2 37 mmHg Low 38 - 42 [facility] Comment on above: Performed By: #### A FPA3 #### [facility] [address] [place] [address] pH (Bld) 7.45 [pH] High 7.38 - 7.42 [facility] Comment on above: Performed By: #### A FPA3 #### [facility] [address] [place] [address] Potassium [Moles/Vol] 3.9 mmol/L Normal 3.5 - 5.3 [facility] Comment on above: Performed By: #### A FPA3 #### [facility] [address] [place] [address] SO2 100 % Normal 94 - 100 [facility] Comment on above: Performed By: #### A FPA3 #### [facility] [address] [place] [address] Sodium [Moles/Vol] 134 mmol/L Low 136 - 145 [facility] Comment on above: Performed By: #### A FPA3 #### [facility] [address] [place] [address] CT L Spine without Contrasto n 09-18-2021 [...] connectors. Objective Data: Objective Information: T PRBPSpO2 [id number]/4391% Date/Time09/18 6:041 5: 5: 5: 5:56 Range(37C [...] Recent Arterial Blood Gas Results 09/18/2021 11:48 [id number] 24 h range: ( 219 - 224 ) pH7.44 24 h range: ( 7.44 - 7.45 ) dOS998 24 h range: ( 37 - 40 ) LG9959 24 h range: ( 100 - 100 ) Base Excess2.8 24 h range: ( 1.8 - 2.8 ) Lmlhjrqpqxr87.2 24 h range: ( 25.7 - 27.2 ) Assessment and Plan: Code Status: Code StatusFull Code Electronic Signatures: Bryan Mora) (Signed 18-Sep-2021 14:47) Authored: Service, Subjective Data, Objective Data, Assessment and Plan, Note Completion Last Updated: 18-Sep-2021 14:47 by Bryan Mora) Normal [facility] Daily Progress Note-Neurosur jinny 09-18-2021 Daily Progress Note-Neurosurgery Service: Neurosurgery Subjective Data: MORALES LEE is a 46 year old Female who is Hospital Day # 4. Objective Data: Objective Information: T PRBPSpO2 [id number]/4391% Date/Time09/18 6: 5: 5: 5: 5:56 Range(36.6C [...] ----- Mn/Dy/Year TimeIntakeOutputNet Sep 17, 2021 10:00 [id number] Sep 17, 2021 2:00 [id number] The Intake and Output Totals for the [...] the note. I personally evaluated the patient [id number] Electronic Signatures: Fidel Maciel (Resident)) (Signed 18-Sep-2021 06:55) Authored: Service, Subjective Data, Objective Data, Assessment and Plan, Note Completion Lex Frederick) (Signed 19-Sep-2021 10:18) Authored: Note Completion Co-Signer: Service, Subjective Data, Objective Data, Assessment and Plan, Note Completion Last Updated: 19-Sep-2021 10:18 by Lex Frederick) Normal [facility] Laboratory - Chemistry and C hemistry - [...] [Moles/Vol] 4.4 mmol/L 3.5 - 5.3 [facility]-Gastroen terology-Roesndo lwell 6 I Work Phone: Sodium [Moles/Vol] [...] dated 10/07/2020. MRI dated 12/11/2020 ACCESSION NUMBER(S): [id number] ORDERING CLINICIAN: ANGELO JUAREZ TECHNIQUE: Thin cut [...] as stated. This study was interpreted at [facility], [place], [place]. Electronically signed by: BOONE LAO MD Normal [facility] No Panel Informationon 09-18 0.0 {/100_WBC} 0.0-0.0 [...] Respiratory Rate15 breath per minute Blood Pressure Nbkzpler11 mm/Hg Blood Pressure Ozjqhnjbm26 mm/Hg COVID 19 Results in Last 7 [...] 18-Sep-2021 06:59 by Lian Zuleta (SANAZ) Normal [facility] Radiologyon 09-18-2021 XR Chest Single view Normal [...] >90 >90 [facility]-G astroen terology-Rosendo lwell 6 [facility] Work Phone: Comment on above: CALCULATIONS OF IVY MATED GFR ARE PERFORMED USING THE 2020 CKD-EPI STUDY REFIT EQUATION WITHOUT THE RACE VARIABLE FOR THE IDMS-TRACEABLE CREATININE METHODS.https://jasn.asnjournals.org/content/early//ASN .8382344696 TH CHEST; 1 VIEWon 2 TH CHEST; 1 VIEW Patient Name: MORALES LEE STUDY: CHEST; 1 VIEW; 09/18/2021 2:38 pm INDICATION: s/p central line placement (right IJ double lumen) . COMPARISON: Radiograph dated 09/15/2021 ACCESSION NUMBER(S): [id number] ORDERING CLINICIAN: BRYAN MORA FINDINGS: Right IJ [...] Electronically signed by: LORELEI JOHNSTON MD Normal [facility] VENOUS FULL PANELon 09-18-19 22 Anion gap [Moles/Vol] 6 mmol/L Low 10 - 25 [facility] Comment on above: Performed By: #### V FPA3 #### [facility] [address] [place] [address] BASE EXCESS-BLOOD 3.9 mmol/L High -2.0 - 3.0 [facility] Comment on above: Performed By: #### V FPA3 #### [facility] [address] [place] [address] BICARB, CALCULATED 28.5 mmol/L High 22.0 - 26.0 [facility] Comment on above: Performed By: #### V FPA3 #### [facility] [address] [place] [address] CALCIUM,IONIZED 1.17 mmol/L Normal 1.10 - 1.33 [facility] Comment on above: Performed By: #### V FPA3 #### [facility] [address] [place] [address] Chloride [Moles/Vol] 103 mmol/L Normal 98 - 107 [facility] Comment on above: Performed By: #### V FPA3 #### [facility] [address] [place] [address] Glucose [Mass/Vol] 188 mg/dL High 74 - 99 [facility] Comment on above: Performed By: #### V FPA3 #### [facility] [address] [place] [address] Hematocrit (Bld) [Volume fraction] 39.0 % Normal 36.0 - 46.0 [facility] Comment on above: Performed By: #### V FPA3 #### [facility] [address] [place] [address] HGB,CALCULATED 13.3 g/dL Normal 12.0 - 16.0 [facility] Comment on above: Performed By: #### V FPA3 #### [facility] [address] [place] [address] Lactate [Moles/Vol] 1.2 mmol/L Normal 0.4 - 2.0 [facility] Comment on above: Performed By: #### V FPA3 #### [facility] [address] [place] [address] Oxygen (Bld) [Partial pressure] 56 mm[Hg] High 35 - 45 [facility] Comment on above: Performed By: #### V FPA3 #### [facility] [address] [place] [address] PATIENT TEMPERATURE 37.0 degrees C Normal [facility] Comment on above: Result Comment: NOTE : PATIENT RESULTS ARE NOT CORRECTED FOR TEMPERATURE. Performed By: #### V FPA3 #### [facility] [address] [place] [address] PCO2 42 mmHg Normal 41 - 51 [facility] Comment on above: Performed By: #### V FPA3 #### [facility] [address] [place] [address] pH (Bld) 7.44 [pH] High 7.33 - 7.43 [facility] Comment on above: Performed By: #### V FPA3 #### [facility] [address] [place] [address] Potassium [Moles/Vol] 4.1 mmol/L Normal 3.5 - 5.3 [facility] Comment on above: Performed By: #### V FPA3 #### [facility] [address] [place] [address] SO2 91 % High 45 - 75 [facility] Comment on above: Performed By: #### V FPA3 #### [facility] [address] [place] [address] Sodium [Moles/Vol] 133 mmol/L Low 136 - 145 [facility] Comment on above: Performed By: #### V FPA3 #### [facility] [address] [place] [address] CORONAVIRUS 2019, SCREEN ASY MPTOMATICon 09-17-2021 SARS-CoV-2 (COVID-19) RNA ADRIÁN+probe Ql (Unsp spec) Not detected Normal Not Detected [facility] Comment on above: Result Comment: . This test has received FDA Emergency Use Authorization (EUA) and has been verified by [facility] ([facility]). This test is only authorized for the duration of time that circumstances exist to justify the authorization of the emergency use of in vitro diagnostic tests for the detection of SARS-CoV-2 virus and/or diagnosis of COVID-19 infection under section 564(b)(1) of the Act, 21 U.S.C. 360bbb-3(b)(1), unless the authorization is terminated or revoked sooner. [facility] is certified under CLIA-88 as qualified to perform high complexity testing. Testing is performed in the [facility] located at [address] [place] [address]. SARS-CoV-2/Flu/RSV Multiplex Test: Fact sheet for providers: https://www.fda.gov/media/678083/download Fact sheet for patients: https://www.fda.gov/media/949260/download Performed By: #### C OVSC ####[id number] [place] [address] Lab Specimen Source Nasal, Nasopharyngeal Normal [facility] Comment on above: Performed By: #### C OVSC ####[id number] [place] [address] Coronavirus 2019 RNA by PCR, Screening Asymptomticon 09-17-2021 Coronavirus 2019 RNA by PCR, Screening Asymptomtic Not detected Normal See Below [facility]astroen [facility]ology-[facility]endo lwell 6 [facility] Work Phone: Comment on above: SOURCE: Nasal, Nasop haryngealReference Range: Not Detected.This test has received FDA Emergency Use Authorization (EUA) and has been verified by [facility] ([facility]). This test is only authorized for the duration of time that circumstances exist to justify the authorization of the emergency use of in vitro diagnostic tests for the detection of SARS-CoV-2 virus and/or diagnosis of COVID-19 infection under section 564(b)(1) of the Act, 21 U.S.C. 360bbb-3(b)(1), unless the authorization is terminated or revoked sooner. [facility] is certified under CLIA-88 as qualified to perform high complexity testing. Testing is performed in the [facility] located at [address] [place] [address].SARS-CoV-2/Flu/RSV Multiplex Test: Fact sheet for providers: https://www.fda.gov/media/903849/downloadFact sheet for patients: https://www.fda.gov/media/720286/download Covid 19 Resultson 2 SARS-CoV-2 (COVID-19) RNA [...] You may also be contacted by the [facility] to see if any of your close [...] or Naproxen (Aleve) can also be used. Kglq-bst-yuzodbt cough and cold medicines can be used according to the instructions on the package. Some ghhp-fdv-rdileut medicines also contain acetaminophen. Make sure you [...] water are not available, use alcohol-based hand chemical engineering technician. Avoid touching your eyes, nose, and mouth [...] 24 mariella (more content not included)... 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 Pt is interested [...] he has been working (cardoza at a [employer]), but she looks forward to his arrival [...] her suboxone. Objective: Objective Information: T PRBPSpO2 Value36.72707467/9095% Date/Time09/17 4: 10: 10: 10: 10:00 Range(35.7C - 36.6C ) (81 - 89 ) (10 - 23 ) (73 - 117 )/ (43 - 90 ) (91% - 96% ) As of 17-Sep-2021 08:00:00, patient is on 3 L/min of oxygen via nasal cannula. Pain reported at 09/17 8:00: 8 = Severe ---- Intake and Output ----- Mn/Dy/Year TimeIntakeOutgila regional medical centerNet Sep 17, 2021 6:00 [id number] Sep 16, 2021 2:00 [id number] The Intake and Output Totals for the last 24 hours are: IntakeOutputNet [id number] Mental Status Exam: General: Awake, lying in [...] a Da (more content not included)... Normal [facility] Daily Progress Note-Neurosur jinny 09-17-2021 Daily Progress Note-Neurosurgery Service: Neurosurgery Subjective Data: MORALES LEE is a 46 year old Female who is Hospital Day # 3. Objective Data: Objective Information: T PRBPSpO2 Value35.6531128/4393% Date/Time09/16 18: 18:5409/16 18:5409/16 18: 18:54 Range(35.7C - 36.4C ) (81 - 91 ) (15 - 24 ) (87 - 118 )/ (43 - 84 ) (91% - 96% ) As of 16-Sep-2021 18:54:00, patient is on 2 L/min of oxygen via nasal cannula. Pain reported at 09/16 16:34: 10 = Severe ---- Intake and Output ----- Mn/Dy/Year TimeIntakeOutAtrium Health Sep 16, 2021 2:00 [id number] Physical Exam by System: Neurological: A&Ox3 RUE [...] the note. I personally evaluated the patient [id number] Comments/ Additional Findings I again explained to [...] Updated: 19-Sep-2021 10:16 by Lex Frederick) Normal [facility] HCG,URINEon 09-17-2021 Beta HCG ( test) Ql (U) Negative Normal Negative [facility] Comment on above: Performed By: #### A FPA3 #### [facility] [address] [place] [address] Laboratory - Blood bankon ABO group Nom [...] 09-17-2021 REQUEST-LEUKOREDUCED RED CELLS ORDER RECD Normal [facility] Comment on above: Performed By: #### O BUILDING INSULATION INSTALLER #### [facility] [address] [place] [address] TYPE + SCREENon 09-17-2021 ABO TYPE O Normal [facility] Comment on above: Performed By: #### T +S #### [facility] [address] [place] [address] RH TYPE Positive Normal [facility] Comment on above: Performed By: #### T +S #### [facility] [address] [place] [address] Urine Teston 09-17 HCG ( test) Ql (U) Negative Negative [facility]-Gastroen terology-[facility] lwell 6 I Work Phone: BNPon 09-16-2021 Natriuretic peptide B (Bld) [Mass/Vol] 37 pg/mL Normal 0 - 99 [facility] Comment on above: Result Comment: . <1 [...] information. Performed By: #### A FPA3 #### [facility] [address] [place] [address] CBC AND DIFFERENTIALon 09-16 % AUTOMATED IMMATURE GRAN 0.5 % Normal 0.0 - 0.9 [facility] Comment on above: Result Comment: Jaleesa ture Granulocyte Count (IG) includes promyelocytes, myelocytes and metamyelocytes but does not include bands. Percent differential counts (%) should be interpreted in the context of the absolute cell counts (cells/L). Performed By: #### C BCDF ####[id number] [place] [address] Basophils (Bld) [#/Vol] 0.04 10*3/uL Normal 0.00 - 0.10 [facility] Comment on above: Performed By: #### C BCDF ####[id number] [place] [address] Basophils/100 WBC (Bld) 0.5 % Normal 0.0 - 2.0 [facility] Comment on above: Performed By: #### C BCDF ####[id number] [place] [address] Eosinophils (Bld) [#/Vol] 0.26 10*3/uL Normal 0.00 - 0.70 [facility] Comment on above: Performed By: #### C BCDF ####[id number] [place] [address] Eosinophils/100 WBC (Bld) 3.0 % Normal 0.0 - 6.0 [facility] Comment on above: Performed By: #### C BCDF ####[id number] [place] [address] Erythrocyte distribution width (RBC) [Ratio] 13.0 % Normal 11.5 - 14.5 [facility] Comment on above: Performed By: #### C BCDF ####[id number] [place] [address] Hematocrit (Bld) [Volume fraction] 42.7 % Normal 36.0 - 46.0 [facility] Comment on above: Performed By: #### C BCDF ####[id number] [place] [address] Hemoglobin (Bld) [Mass/Vol] 14.1 g/dL Normal 12.0 - 16.0 [facility] Comment on above: Performed By: #### C BCDF ####[id number] [place] [address] Lymphocytes (Bld) [#/Vol] 3.17 10*3/uL Normal 1.20 - 4.80 [facility] Comment on above: Performed By: #### C BCDF ####[id number] [place] [address] Lymphocytes/100 WBC (Bld) 37.2 % Normal 13.0 - 44.0 [facility] Comment on above: Performed By: #### C BCDF ####[id number] [place] [address] MCHC (RBC) [Mass/Vol] 33.0 g/dL Normal 32.0 - 36.0 [facility] Comment on above: Performed By: #### C BCDF ####[id number] [place] [address] MCV (RBC) [Entitic vol] 91 fL Normal 80 - 100 [facility] Comment on above: Performed By: #### C BCDF ####[id number] [place] [address] Monocytes (Bld) [#/Vol] 0.47 10*3/uL Normal 0.10 - 1.00 [facility] Comment on above: Performed By: #### C BCDF ####[id number] [place] [address] Monocytes/100 WBC (Bld) 5.5 % Normal 2.0 - 10.0 [facility] Comment on above: Performed By: #### C BCDF ####[id number] [place] [address] Neutrophils (Bld) [#/Vol] 4.55 10*3/uL Normal 1.20 - 7.70 [facility] Comment on above: Performed By: #### C BCDF ####[id number] [place] [address] Neutrophils/100 WBC (Bld) 53.3 % Normal 40.0 - 80.0 [facility] Comment on above: Performed By: #### C BCDF ####[id number] [place] [address] NUCLEATED RBC 0.0 /100 WBC Normal 0.0-0.0 [facility] Comment on above: Performed By: #### C BCDF ####[id number] [place] [address] Platelets (Bld) [#/Vol] 278 10*3/uL Normal 150 - 450 [facility] Comment on above: Performed By: #### C BCDF ####[id number] [place] [address] RBC 4.70 x10E12/L Normal 4.00 - 5.20 [facility] Comment on above: Performed By: #### C BCDF ####[id number] [place] [address] WBC (Bld) [#/Vol] 8.5 10*3/uL Normal 4.4 - 11.3 [facility] Comment on above: Performed By: #### C BCDF ####[id number] [place] [address] COAGULATION SCREENon 022 aPTT Coag (Bld) [Time] 31 s Normal 26 - 39 [facility] Comment on above: Result Comment: Note new reference range as of 08/04/2021 at 10:00am. Performed By: #### V FPA3 #### [facility] [address] [place] [address] PT Coag (PPP) [Time] 11.6 s Normal 9.8 - 13.4 [facility] Comment on above: Result Comment: Note new reference range as of 08/04/2021 at 10:00am. Performed By: #### V FPA3 #### [facility] [address] [place] [address] PT, INR 1.0 Normal 0.9 - 1.1 [facility] Comment on above: Performed By: #### V FPA3 #### [facility] [address] [place] [address] Clinical Event Note-ADMISSIO N CLARIFICATIONon 09-16-2021 Clinical [...] and monitoring for withdrawal. Provider/Team Contact Info-Pager [phone] Electronic Signatures: Sharmin Guaman (ALUMINUM CAN COLLECTOR-GEODESIST) (Signed 16-Sep-2021 12:07) Authored: Clinical Event Note Last Updated: 16-Sep-2021 12:07 by Sharmin Guaman (ALUMINUM CAN COLLECTOR-GEODESIST) Normal [facility] Complete Blood Count + Diffe rentialon 09-16-2021 [...] the note. I personally evaluated the patient [id number] Electronic Signatures: Chidi Lamar (Fellow)) (Signed 16-Sep-2021 [...] From Consult - Psychiatry 15-Sep-2021 20:42 Normal [facility] Consult-Perioperative Medici neon 09-16-2021 Consult-Perioperativ e Medicine [...] penicillin: Unknown Objective: Objective Information: T PRBPSpO2 Value36.65336726/8491% Date/Time09/16 11:13112 12:4909/16 12:4909/16 12:4909/16 12:49 Range(36.3C [...] 100 mg (more content not included)... Normal [facility] Cult, Urineon 09-16-2021 Bacteria identified Cx Nom (U) Abnormal [facility]-Gastroen terology-Rosendo zeny 6 [facility] Work Phone: Daily Progress Note-Nuha stearns 09-16-2021 Daily Progress Note-Neurosurgery Service: Neurosurgery Subjective Data: MORALES LEE is a 46 year old Female who is Hospital Day # 3. Objective Data: Objective Information: T PRBPSpO2 Value36.7660119/6693% Date/Time09/16 1: 4: 4: 4: 4:00 Range(36.3C [...] (suboxone) in AM COWS psych recs SCD's, [facility] Attestation: Note Completion: I am a: Resident/Fellow [...] the note. I personally evaluated the patient [id number] Comments/ Additional Findings TO OR this Tuesday if medically optimized for T12 - Pelvis fusion and Instrumentation. Pain consult for management regrading Suboxone and pain control in the perioperative period. US LE MRI of the lumbar spine., Lex K Kasliwal, MD, [facility], FAANS Director - Minimally Invasive Spine Surgery [facility] Information Tech of Neurological Surgery [employer] [place], [place] Electronic Signatures: Fidel Maciel (Resident)) (Signed 16-Sep-2021 04:33) Authored: Service, Subjective Data, Objective Data, Assessment and Plan, Note Completion Lex Frederick) (Signed 16-Sep-2021 10:22) Authored: Note Completion Co-Signer: Service, Subjective Data, Objective Data, Assessment and Plan, Note Completion Last Updated: 16-Sep-2021 10:22 by Lex Frederick) Normal [facility] EMR ADDONon 09-16-2021 ADDON CONFIRMATION REQUEST REC'D Normal [facility] Comment on above: Performed By: #### [...] above: . <100 pg/mL - Heart failure [id number] pg/mL - Intermediate probability of acute heart. [...] [Mass/Vol] 3.5 g/dL Normal 3.4 - 5.0 [facility] Comment on above: Performed By: #### R ENAL #### [facility] [address] [place] [address] Anion gap [Moles/Vol] 14 mmol/L Normal 10 - 20 [facility] Comment on above: Performed By: #### R ENAL #### [facility] [address] [place] [address] Calcium [Mass/Vol] 8.9 mg/dL Normal 8.6 - 10.6 [facility] Comment on above: Performed By: #### R ENAL #### [facility] [address] [place] [address] Chloride [Moles/Vol] 101 mmol/L Normal 98 - 107 [facility] Comment on above: Performed By: #### R ENAL #### [facility] [address] [place] [address] Creatinine [Mass/Vol] 0.63 mg/dL Normal 0.50 - 1.05 [facility] Comment on above: Performed By: #### R ENAL #### [facility] [address] [place] [address] eGFR FEMALE >90 Normal >90 [facility] Comment on above: Result Comment: CALC ULATIONS OF ESTIMATED GFR ARE PERFORMED USING THE 2020 CKD-EPI STUDY REFIT EQUATION WITHOUT THE RACE VARIABLE FOR THE IDMS-TRACEABLE CREATININE METHODS. https://jasn.asnjournals.org/content//ASN.8110083 988 Performed By: #### R ENAL #### [facility] [address] [place] [address] Glucose [Mass/Vol] 88 mg/dL Normal 74 - 99 [facility] Comment on above: Performed By: #### R ENAL #### [facility] [address] [place] [address] HCO3 (Bld) [Moles/Vol] 29 mmol/L Normal 21 - 32 [facility] Comment on above: Performed By: #### R ENAL #### [facility] [address] [place] [address] Phosphate [Mass/Vol] 3.4 mg/dL Normal 2.5 - 4.9 [facility] Comment on above: Result Comment: The performance characteristics of phosphorus testing in heparinized plasma have been validated by the individual laboratory site where testing is performed. Testing on heparinized plasma is not approved by the FDA; however, such approval is not necessary. Performed By: #### R ENAL #### [facility] [address] [place] [address] Potassium [Moles/Vol] 3.7 mmol/L Normal 3.5 - 5.3 [facility] Comment on above: Performed By: #### R ENAL #### [facility] [address] [place] [address] Sodium [Moles/Vol] 140 mmol/L Normal 136 - 145 [facility] Comment on above: Performed By: #### R ENAL #### [facility] [address] [place] [address] Urea nitrogen [Mass/Vol] 10 mg/dL Normal 6 - 23 [facility] Comment on above: Performed By: #### R ENAL #### [facility] [address] [place] [address] Renal Function Panelon 09-16 Albumin BCP dye [...] RACE VARIABLE FOR THE IDMS-TRACEABLE CREATININE METHODS.[email or web address]//[email or web address] .[email or web address] UA MICROSCOPICon 09-16-2021 BACTERIA 2+ /HPF Abnormal [facility] Comment on above: Performed By: #### U AMIC ####[id number] [place] [address] Mucus Ql (Urine sed) 1+ /LPF Normal [facility] Comment on above: Performed By: #### U AMIC ####[id number] [place] [address] RBC 3 /HPF Normal 0-5 [facility] Comment on above: Performed By: #### U AMIC ####[id number] [place] [address] SQUAMOUS EPITH. CELLS 2 /HPF Normal [facility] Comment on above: Performed By: #### U AMIC ####[id number] [place] [address] WBC 115 /HPF Abnormal 0-5 [facility] Comment on above: Performed By: #### U AMIC ####[id number] [place] [address] URINALYSISon 09-16-2021 Appearance (U) HAZY Normal CLEAR [facility] Comment on above: Performed By: #### U A ####[id number] [place] [address] Bilirubin Ql (U) Negative Normal NEGATIVE [facility] Comment on above: Performed By: #### U A ####[id number] [place] [address] Color (U) YELLOW Normal STRAW,YELLO W [facility] Comment on above: Performed By: #### U A ####[id number] [place] [address] Glucose Ql (U) Negative Normal NEGATIVE [facility] Comment on above: Performed By: #### U A ####[id number] [place] [address] Hemoglobin Ql (U) Negative Normal NEGATIVE [facility] Comment on above: Performed By: #### U A ####[id number] [place] [address] Ketones Ql (U) Negative Normal NEGATIVE [facility] Comment on above: Performed By: #### U A ####[id number] [place] [address] Leukocyte esterase Test strip Ql (U) LARGE (3+) Abnormal NEGATIVE [facility] Comment on above: Performed By: #### U A ####[id number] [place] [address] Nitrite Ql (U) Positive Abnormal NEGATIVE [facility] Comment on above: Performed By: #### U A ####[id number] [place] [address] pH (U) 6.0 [pH] Normal 5.0 - 8.0 [facility] Comment on above: Performed By: #### U A ####[id number] [place] [address] Protein Ql (U) Negative Normal NEGATIVE [facility] Comment on above: Performed By: #### U A ####[id number] [place] [address] Specific gravity (U) [Rel density] 1.011 Normal 1.005 - 1.035 [facility] Comment on above: Performed By: #### U A ####[id number] [place] [address] Urobilinogen (U) [Mass/Vol] 2.0 mg/dL High 0.0 - 1.9 [facility] Comment on above: Result Comment: Due to [...] positive urobilinogen. Performed By: #### U A ####[id number] [place] [address] URINE CULTURE,BACTERIALon URINE CULTURE,BACTERIAL PATIENT: MORALES LEE LOCATION: [facility]#: [id number] : 71 AGE: SEX: F ORDERED BY: [...] DOSE DEPENDENT NS=NONSUSCEPTIBLE X=REPORTED IN ERROR Normal [facility] Comment on above: Performed By: #### A FPA3 #### [facility] [address] [place] [address] Urinalysison 09-16-2021 Color (U) YELLOW See Below [facility] Work Phone: Comment on above: Reference Range: STR AW,YELLOW Glucose Ql (U) Negative NEGATIVE [facility] Work Phone: Ketones Ql (U) Negative NEGATIVE [facility] I Work Phone: Leukocyte esterase Test strip Ql (U) LARGE (3+) Abnormal NEGATIVE [facility] Work Phone: pH (U) 6.0 [pH] 5.0 - 8.0 [facility] Work Phone: Protein (U) [Mass/Vol] Negative NEGATIVE [facility] Work Phone: RBC (U) [#/Vol] Negative NEGATIVE [facility] I Work Phone: Specific gravity (U) [Rel density] 1.011 1 See Below [facility] Work Phone: Comment on above: Reference Range: 1.0 05 - 1.035 Urinalysis Positive Abnormal NEGATIVE [facility] Work Phone: Urinalysis 2.0 mg/dL above high threshold 0.0 - 1.9 [facility] I Work Phone: Comment on above: [...] Urinalysis Negative NEGATIVE [facility] Work Phone: Urinalysis HAZY CLEAR [facility]en [...] 09-16-2021 VAS LAB Venous Duplex Ultrasound DVT [place] [address] and Vascular Lab Report Lower Venous Duplex Ultrasound Patient Name: MORALES LEE Reading Physician: [id number] Arjun Romero MD, RPVI Study Date: 09/16/2021 Referring Physician: [id number] RAGSDALE MRN/PID: [id number] PCP: Accession/Order#: [id number] CC Report to: Date of : 1975 Technologist: Isai Burleson RVT Gender: F Technologist 2: Admission Status: Outpatient Location Performed: [facility] Diagnosis/ICD: M79.89-Left leg swelling; M79.89-Right leg swelling Procedure/CPT: 78260 Peripheral venous duplex scan for DVT complete-94029 CONCLUSIONS: Right Lower Venous: No evidence of [...] Spontaneous/Phasic Peroneal Yes None PTV Yes None [id number] Arjun Romero MD, YOLIE Final Normal [facility] VAS LAB Venous Duplex Ultra sound for DVTon 09-16-2021 [facility] Venous Duplex Ultrasound for DVT [facility] Work Phone: No Panel Informationon 09-15 [email or web address]?Ret rieveTestByDateTime?Patient SQ=[id number]&Date= 2&Time=19%3a14%3a23%3a00&Te stType=ECG&Site=1&OutputTyp e=PDF&Ext=PDF [facility] Work Phone: Normal sinus rhythm [facility] I Work Phone: Abnormal [facility] Work Phone: [phone] [facility] Work Phone: [phone] [facility] Work Phone: [phone] [facility] Work Phone: [phone] [facility] Work Phone: [phone] [facility] Work Phone: 14 1 [facility] Work Phone: [phone] [facility] [...] I Work Phone: [email or web address]?Ret rieveTestByDateTime?Patient US=[id number]&Date= 2&Time=19%3a14%3a42%3a00&Te stType=ECG&Site=1&OutputTyp e=PDF&Ext=PDF [facility] [...] Phone: [phone] [facility] Work Phone: Order Reconciliationon 09-15 Order Reconciliation Page 1 Admission Reconciliation Document Reconciliation Type: Admission requested on behalf of Concetta Shi (Advanced Practice Nurse) done by Concetta Shi ([facility]) Admission - Reconciliation: 15-Sep-2021 19:03 by: Fidel Maciel (Resident)) Admission - Reset to Incomplete: 15-Sep-2021 21:47 by: Fidel Maciel ( (Resident)) Admission - Reconciliation: 15-Sep-2021 21:49 by: Fidel Maciel ( (Resident)) Admission - Reset to Incomplete: 16-Sep-2021 00:41 by: Fidel Maciel ( (Resident)) Admission - Reconciliation: 16-Sep-2021 00:42 by: Fidel Maciel ( (Resident)) Admission - Reset to Incomplete: 30-Sep-2021 14:18 by: Concetta Shi ([facility]) Admission - Reconciliation: 30-Sep-2021 14:20 by: Concetta Shi ([facility]) Home MedicationsEnteredLast Dose TakenReconciled with current Order Reconciliation Comment/ Additional Information acetaminophen 325 mg oral tablet 2 tab(s) orally every 6 hours, as needed while having post operative onqo89-Kjy-2462 Reviewed and Held Ambien CR 12.5 mg oral tablet, extended release 1 tab(s) oral kgl57-Iry-7786 Zolpidem Tablet (AMBIEN)DOSE = 10 mg Oral At BedtimeNotes from Pharmacy: Substitution For Zolpidem (Ambien CR) 12.5 mg at Bedtime Ambien CR 12.5 mg oral tablet, extended release continued as the inpatient order Zolpidem Ankle Foot Orthosis for foot darp84-Qte-9213 Reviewed and Held betamethasone topical valerate 0.1% topical cream 1 milena topical prn 15-Sep-2021 EnteredInError Reviewed and Held Bilateral Prafos - orthotics to fit, - ICD 10: R26.0, M21.37, M62.81 30-Sep-2021 Reviewed and Held calcium-vitamin D 500 mg-200 intl units (5 mcg) oral tablet 1 tab(s) orally 4 times a gzs12-Xsn-0014 Calcium 500 mg - Vitamin D 200 [...] times a day, as needed for muscle -Ewn-0328 Cyclobenzaprine Tablet (FLEXERIL)DOSE = 10 mg Oral [...] topical 1% topical gel 1 milena topical psp30-Faz-2057 Reviewed and Held DULoxetine 30 mg oral [...] 2 tab(s) orally once a day, As Lfyhrq97-Swv-5985 Reviewed and Held gabapentin 800 mg oral tablet 1 tab(s) oral 3 times a azt07-Hid-0691 Gabapentin Capsule (NEURONTIN)DOSE = 800 mg Oral 3 Times a Day gabapentin 800 mg oral tablet continued as the inpatient order Gabapentin LEFT AFO -Orthotics to fit, ICD 10: M21.7658-Hbu-8048 Reviewed and Held lidocaine 5% topical film Apply topically to affected area once a day, As Needed near surgical incision for incisional pain 15-Sep-2021 EnteredInError Reviewed and Held lisinopril 20 mg oral tablet 1 tab(s) oral once a gjv18-Xfa-9180 Lisinopril Tablet (PRINIVIL, ZESTRIL)DOSE = 20 mg [...] patch TransDermal Every 24 HoursNotes from Pharmacy: [facility] nicotine 14 mg/24 hr transdermal [...] - available over the counter at any mjewbxnm72-Zsw-5767 Reviewed and Held RIGHT AFO - Orthotics to fit, - M21.1666-Ncu-2752 Reviewed and Held sennosides-docusate 8.6 mg-50 mg oral tablet 2 tab(s) orally 2 times a day , -Take while using oxycodone for post operative pain to prevent contipation 15-Sep-19 (more content not included)... Normal [facility] Radiologyon 09-15-2021 XR Chest Single view Normal [facility] Work Phone: TH CHEST 1 VIEWon 09-15-2021 TH CHEST 1 VIEW Patient Name: MORALES LEE STUDY: CHEST 1 VIEW; 09/15/2021 7:21 pm INDICATION: pre-op . COMPARISON: 12/26/2020. ACCESSION NUMBER(S): [id number] ORDERING CLINICIAN: TOSHA ELDER FINDINGS: CARDIOMEDIASTINAL SILHOUETTE: [...] dysfunction. Electronically signed by: Esther PEDERSON MD [facility] Established Visit (Neurosurg ariana)on 09-08-2021 Established [...] in the Neurosurgery Spine Clinic at the [facility]. She is a very pleasant 46-year-old female, [...] obvious instability (more content not included)... Normal [employer] No Panel Informationon 09-08 Normal [facility]Neurosur samson-Miguel [...] and T6-L4 Fusion. COMPARISON: None. ACCESSION NUMBER(S): [id number] ORDERING CLINICIAN: LEX FREDERICK FINDINGS: Fused PA [...] Electronically signed by: JOSEPH SALAZAR MD Normal [facility] Tobacco Screening.on Fall risk assessment b) One or more fall s in the last year -Nuha Doyle Work Phone: Tobacco use status CPHS a) Yes [employer]-Nuha Doyle Work Phone: Established Visit (Neurosurg ariana)on 05-05-2021 Established Visit (Neurosurgery) History of Present Illness I just had the pleasure of seeing Mrs. Raghav villarreal in the Neurosurgery Spine Clinic at the [facility]. She is a very pleasant 45 -year-old female, who recently underwent a L1 Vertbrectomy and T6-L4 Fusion with me on 12/26/2020 and is status post 4 Months out from her surgery. Today's visit was a virtual visit with the patient at her home and myself at [facility]. She mentions that overall she is doing [...] in Ms. LEE care. Lex Frederick MD, [facility], FAANS Director - Minimally Invasive Spine Surgery [facility] Information Tech of Neurological Surgery [employer] [place], [place] Some of this note was completed using [employer] voice recognition technology and sometimes the software [...] May 05 2021 9:18PM EST (Author) Normal [facility] Established Visit (Neurosurg ariana)on 01-08-2021 Established Visit [...] in the Neurosurgery Spine Clinic at the [facility]. She is a very pleasant 45 -year-old female, who recently underwent a L1 Vertbrectomy and T6-L4 Fusion with nd on 12/26/2020 and is status post 2 [...] the further treatment plan. Lex Frederick MD, [facility], FAANS Director - Minimally Invasive Spine Surgery [facility] Ornamental Metal Worker Apprentice of Neurological Surgery [employer] [place], [place] Some of this note was completed using [employer] voice recognition technology and sometimes the software [...] Unspecified cord compression. COMPARISON: None. ACCESSION NUMBER(S): [id number] ORDERING CLINICIAN: LEX FREDERICK TECHNIQUE: Multiplanar and [...] spine. Electronically signed by: LENNY HAGER MD [facility] NR MRI L-SPINE WOon 12-12-19 21 NR MRI L-SPINE WO Patient Name: MORALES LEE STUDY: MRI L-SPINE WO; ; 12/11/2020 1:38 pm INDICATION: Lumbar Pain Scoliosis, unspecified Low back pain. COMPARISON: CT lumbar spine from 10/07/2020. MRI lumbar spine from 03/11/2016. ACCESSION NUMBER(S): [id number] ORDERING CLINICIAN: LEX FREDERICK TECHNIQUE: MRI of [...] multiple levels. This study was interpreted at [facility]. Electronically signed by: WESLEY CARBAJAL MD [facility] Initial Visit (Neurosurgery) on 10-28-2020 Initial Visit [...] Status:Resulted - Preliminary,Retrospective By Protocol Authorization; Done: [id number] 12:00AM Reason: Unspecified for Xray Spine, entire thoracic/lumbar, include skull, cervical and sacral spine when performed, 2 or 3 view Radiologist to Determine Optimal Study : Y What are the patient's signs and symptoms? : Lumbar Pain SocHx: Current smoker Tobacco Use Screening; Status:Complete; Done: [id number] Patient Discussion/Summary It was a pleasure to see Ms. LEE at the Neurosurgery Spine Clinic at [facility]. Ms. 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 She now has been having severe symptoms [...] evaluated by another spine surgeon at the [facility] who recommended urgent surgery for her on [...] even walk (more content not included)... Normal [facility] CNPNon 07-10-2019 CNPN Telephone (SPNMMN) MORALES LEE ([id number]) 1975 F Date Time Provider Department 07/10/19 DIXIE TEE [facility] During your visit today, we recorded [...] Order(s):CONSULT TO ORTHOPAEDIC SURGERY [19991006] Order #: [id number]: 1 Prescriptions as of 07/10/2019 Sig: LISINOPRIL [...] Status:Closed by DIXIE TEE MD on 07/10/19 [facility] CNOVon 07-09-2019 CNOV Office Visit (SPNSMN ) MORALES LEE ([id number]) 1975 F Date Time Provider Department 07/09/19 9:30 AM STEVENSON QUAN SPNSMN During your visit today, we recorded the following information about you: Pulse Respiration Blood pressure Weight 89/minute 18/minute 124/74 95.8 kg Height 1.499 m Stevenson Quan MD 07/09/2019 2:56 PM Signed SPINE SURGERY OUTPATIENT CONSULT SERVICE DATE: 07/09/2019 PCP: No primary care provider on file. REFERRING PROVIDER: Dixie Tee MD [address] [facility] [address] Consult requested for an opinion regarding the [...] file Gets together: Not on file Attends worship service: Not on file Active member of [...] with the patient or the patient?s personal dealer compliance representative. 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] Other Visit Diagnosis:Spinal stenosis of thoracic region [M48.04] Order(s):CT THORACIC SPINE WO IVCON [9863485] Order #: [id number] FUTURE Prescriptions as of 07/09/2019 Sig: LISINOPRIL [...] Status:Closed by STEVENSON QUAN MD on 07/09/19 [facility] OBSOLETEon 07-09-2019 OBSOLETE Procedure (EMGMN) MORALES LEE ([id number]) 1975 F Date Time Provider Department 07/09/19 [...] upper limb [G56.21] Order(s):EMG(NEURO/NI) [20101204] Order #: [id number]: 1 Prescriptions as of 07/09/2019 Sig: LISINOPRIL [...] by JHON EASON MD on 07/09/19 Normal [facility] PROGRESSon 07-09-2019 PROGRESS HNO ID: [id number] Author: Stevenson uQan Service: ? Author Type: Physician Type: Progress Notes Filed: 07/09/2019 2:56 PM Note Text: SPINE SURGERY OUTPATIENT CONSULT SERVICE DATE: 07/09/2019 PCP: No primary care provider on file. REFERRING PROVIDER: Dixie Tee MD [address] [facility] [address] Consult requested for an opinion regarding the [...] file Gets together: Not on file Attends worship service: Not on file Active member of [...] with the patient or the patient?s personal dealer compliance representative. The patient has elected to schedule [...] 09, 2019 TIME: 10:24 AM PAGER: Normal [facility] OT-XR DEXA BONE DENSITY IMPO RTon 07-06-2019 OT-XR DEXA BONE DENSITY IMPORT Images were obtained outside of [facility] [id number] Normal [facility] CASE MGT INIT [facility] 2018 CASE MGT INIT [facility] HNO ID: [id number] Author: Kimberly WilksRn) EVARISTO Dunaway Service: ? Author Type: Registered Nurse Type: Care Mgt Initial Assessment Filed: 06/20/2019 12:25 PM Note Text: CARE MANAGEMENT: ASSESSMENT AND DISCHARGE PLAN SERVICE DATE: 06/20/2019 SERVICE TIME: 12:21 PM PRIMARY CARE PHYSICIAN: No primary care provider on file. 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 No Advance Directive: Current Advance Directive: None Patient Service Associate Attempted to Assist with AD Completion: Yes [...] None Has the Patient Been in a Jail Facility in the Past 30 days? N/A SOCIAL: Living Arrangement: Home Lives With: Spouse Financial Resources: Disabled Primary Contact: Extended Emergency Contact Information Primary Emergency Contact: Lars Lee Address: [address] [place] [address] [facility] Mobile Relation: Spouse Supportive: Yes Other Important [...] 0 I feel financially burdened by my rct-un-uoyfij expenses for my prescription medication: Disagree completely [...] 20, 2019 TIME: 12:21 PM PAGER/CONTACT #: [phone] Normal [facility] CBCon 06-20-2019 Erythrocyte distribution width (RBC) [Ratio] 12.6 % Normal 11.5-15.0 [facility] Comment on above: Performed By: #### C BC #### [place] [phone] Hematocrit (Bld) [Volume fraction] 48.7 % High 36.0-46.0 [facility] Comment on above: Performed By: #### C BC #### [place] [phone] Hemoglobin (Bld) [Mass/Vol] 16.8 g/dL High 11.5-15.5 [facility] Comment on above: Performed By: #### C BC #### [place] [phone] MCH (RBC) [Entitic mass] 31.1 pG Normal 26.0-34.0 [facility] Comment on above: Performed By: #### C BC #### [place] [phone] MCHC (RBC) [Mass/Vol] 34.5 g/dL Normal 30.5-36.0 [facility] Comment on above: Performed By: #### C BC #### [place] [phone] MCV (RBC) [Entitic vol] 90.0 fL Normal 80.0-100.0 [facility] Comment on above: Performed By: #### C BC #### [place] [phone] Platelet mean volume (Bld) [Entitic vol] 10.6 fL Normal 9.0-12.7 [facility] Comment on above: Performed By: #### C BC #### [facility] [address] [place] [address] Platelets (Bld) [#/Vol] 334 10*3/uL Normal 150-400 [facility] Comment on above: Performed By: #### C BC #### [place] [address] RBC (Bld) [#/Vol] 5.41 10*6/uL High 3.90-5.20 [facility] Comment on above: Performed By: #### C BC #### [place] [address] WBC (Bld) [#/Vol] 10.85 10*3/uL Normal 3.70-11.00 [facility] Comment on above: Performed By: #### C BC #### [place] [address] CONSULTon 06-20-2019 CONSULT HNO ID: [id number] Author: Evelyn Resendez Service: Pain Management Author [...] [facility] Of note, pt has followed once in [...] me to leave. She is now leaving [place]. 3. Will sign off SUBJECTIVE CHIEF COMPLAINT: [...] activity was identified. 06/20/2019 by Evelyn Resendez APRN.GEODESIST PAST MEDICAL HISTORY Diagnosis Date - Degenerative [...] file Gets together: Not on file Attends worship service: Not on file Active member of [...] Morales Parker Raghav's care. SIGNATURE: Evelyn Resendez APRN.GEODESIST PATIENT NAME: Morales Lee DATE: June 20, 2019 TIME: 8:24 AM PAGER/CONTACT #: [phone] (M-F 8-5) [facility] BRAIN WO IVCONon 06-20-[address] BRAIN WO IVCON * * *Final Report* * * DATE OF EXAM: Jun 20 2019 1:31AM [facility] 0504 - CT BRAIN WO IVCON [...] No large cortical infarct or acute hemorrhage. Face Worker: ADITYA Transcribe Date/Time: Jun 20 2019 1:33A Dictated by : DAVONTE MOY MD This examination was interpreted and the report reviewed and electronically signed by: DAVONTE MOY MD on Jun 20 2019 1:35AM EST [id number] [facility] ECG COMPLETEon 06-20-2019 ECG COMPLETE NAME : MORALES LEE PID : [id number] : 1975 Gender : Female Race : ORD : [id number] Procedure Date : Jun 19 2019 23:57:03 Edit Date : Jun 20 2019 07:51:18 Diagnosis:Sinus rhythm Normal ECG no STEMI 1200a Confirmed by MD ARREDONDO LISA ([id number]), editorial specialist FOREST WALTON ([id number]) on 06/20/2019 7:51:18 AM Ventricular Rate : 85 BPM Atrial Rate : 85 BPM P-R Interval : 137 ms QRS Duration : 91 ms Q-T Interval : 365 ms QTC Calculation(Bazett) : 434 ms P Natoma : 51 degrees R Natoma : -13 degrees T Natoma : 61 degrees Test Reason : Chest Pain Location : 302 : ED AVED-1 Overread By : MD CORBY,TRACY Edited By : FOREST WALTON Referred By : , Acquired by : [id number], [facility] ED NOTEon 06-20-2019 ED NOTE HNO ID: [id number] Author: Yuki Mckenzie) EVARISTO Cruz Service: ? Author Type: Registered Nurse Type: ED Notes Filed: 06/20/2019 1:40 AM Note Text: Patient got CT, it is still pending and Jessie BONITA said ok to transfer to [place] with out results pending. Patient agreeing and understanding of transfer. updated on POC and transfer via telephone. DM here to take patient at this time. Pain is not improved at time of transfer. [facility] ED NOTE HNO ID: [id number] Author: Yuki Cruz RN Service: ? Author Type: Registered Nurse Type: ED Notes Filed: 06/20/2019 1:15 AM Note Text: Clean catch urine specimen obtained and sent. [facility] ED NOTE HNO ID: [id number] Author: Yuki Cruz RN Service: ? Author [...] time with getting transferred to another facility. [facility] ED NOTE HNO ID: [id number] Author: Yuki Cruz RN Service: ? Author Type: Registered Nurse Type: ED Notes Filed: 06/20/2019 3:28 AM Note Text: Patient stated Valium did not help. She continues to be in pain and upset. She wanted to speak with someone in charge and update on POC. Normal [facility] HISTORY PHYSICALon 9 HISTORY PHYSICAL HNO ID: [id number] Author: Talita Wesley RN Service: General Internal [...] tightness that is constant. Notices a decreased healthcare network consultant strength and weakness in left hand. She [...] pressure, palpitations, leg swelling. Denies hx of IN. GI: Denies nausea, vomiting, diarrhea, abdominal pain, [...] rotation 40/80% Decreased left C5-C7 sensation. Left healthcare network consultant strength 2/5. Right healthcare network consultant strength 5/5. UE DTR intact and equal. [...] tightness into left arm, weak left hand healthcare network consultant strength, and worsening severity of numbness/tingling -Afebrile [...] Needs confirmed with patient pharmacy. Patient uses [facility] in [place], [place]. Patient provided #[phone]. Will call in am to confirm dose. Nicotine Abuse Assessment AND Plan: Smokes 1 1/2 PPD for 20 years. Smoking cessation advised. Nicotine patch ordered. Medication and Non-Pharmacologic VTE Prophylaxis/Anticoagulants VTE Prophylaxis: VTE prophylaxis appropriate SIGNATURE: Talita Wesley APRN.CNP PATIENT NAME: Morales Lee DATE: June 20, 2019 TIME: 2:58 AM PAGER/CONTACT #: [facility] # [phone] [facility] NURSING PROGon 06-20-2019 NURSING PROG HNO ID: [id number] Author: Austyn (Rn) EVARISTO Berumen Service: Nursing Author Type: Registered Nurse Type: Nursing Progress Note Filed: 06/20/2019 3:10 PM Note Text: Nursing Progress Note Patient Name: Morales Lee Patient Location: [id number] 2 Daily Note:06/20/2019 -pt is upset regarding [...] note was completed by: AUSTYN BERUMEN RN [facility] NURSING PROG HNO ID: [id number] Author: Austyn Mckenzie) EVARISTO Berumen Service: Nursing Author Type: Registered Nurse Type: Nursing Progress Note Filed: 06/20/2019 8:10 AM Note Text: Nursing Progress Note Patient Name: Morales Lee Patient Location: [id number] 2 Daily Note:06/20/2019 -assumed care of patient, pt is requesting her suboxone. We have to call to verify dosage. -EVARISTO Acosta called pharmacy provided by night DIRECTOR DIGITAL and the pharmacy does not open until 9am. We will call back to verify dose later. -Dr. Kwon called to speak with this RN, he will be in to see the patient later today. This note was completed by: AUSTYN BERUMEN RN [facility] NURSING PROG HNO ID: [id number] Author: Guadalupe Mckenzie) EVARISTO Herbert Service: ? Author Type: Registered Nurse Type: Nursing Progress Note Filed: 06/20/2019 4:33 AM Note Text: Nursing Progress Note Patient Name: Morales Lee Patient Location: [id number] 2 Daily Note:AANDO x 3. C/O left [...] note was completed by: Guadalupe Herbert RN [facility] PROGRESSon 06-20-2019 PROGRESS HNO ID: [id number] Author: Sedrick Martin Service: General Internal Medicine [...] rales. Cor:RSR, no murmurs. 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 DATA: Diagnostic tests [...] Non-Pharmacologic VTE Prophylaxis/Anticoagulants 06/20/19399 pneumatic compression stockings (az,wy) 06/20/19399 activity - mobilize patient ([place]) VTE Prophylaxis: appropriate SIGNATURE: Sedrick Martin MD PATIENT NAME: Morales Lee DATE: June 20, 2019 TIME: 10:41 AM PAGER: Normal [facility] PROGRESS HNO ID: [id number] Author: Sedrick Martin Service: General Internal Medicine Author Type: Physician Type: Progress Notes Filed: 06/20/2019 8:25 AM Note Text: As per Pain Management Consult still pending, I was notified by Pain Management to resume the pt.' s home Suboxone dosage until pt. Seen later today. Normal [facility] Troponin Ton 06-20-2019 Troponin T.cardiac [Mass/Vol] ug/L Normal 0.000-0.029 [facility] Comment on above: Performed By: #### T NT #### [place] [id number] [place] [phone] Troponin T.cardiac [Mass/Vol] ug/L Normal 0.000-0.029 [facility] Comment on above: Performed By: #### T NT #### [place] [phone] Basic Metabolic Panlon 06-19 Anion gap [Moles/Vol] 14 mmol/L Normal 9-18 [facility] Calcium [Mass/Vol] 10.3 mg/dL High 8.5-10.2 [facility] Chloride [Moles/Vol] 96 mmol/L Low 97-105 [facility] CO2 [Moles/Vol] 29 mmol/L Normal 22-30 [facility] Creatinine [Mass/Vol] 0.59 mg/dL Normal 0.58-0.96 [facility] eGFR- Amer. >60 Normal [facility] GFR/1.73 sq M predicted among non-blacks MDRD (S/P/Bld) [Vol rate/Area] mL/min/{1.73_m2} Normal [facility] Comment on above: Result Comment: eGFR (Estimated [...] GFR. Glucose [Mass/Vol] 114 mg/dL High 74-99 [facility] Comment on above: Result Comment: The [place] Diabetes [employer] (ADA) provides guidance for cutoff [...] Standards of Medical Care in Diabetes 2016, [place] [employer]. Diabetes Care. 2016.39(Suppl 1). Potassium [Moles/Vol] 3.7 mmol/L Normal 3.7-5.1 [facility] Sodium [Moles/Vol] 139 mmol/L Normal 136-144 [facility] Urea nitrogen [Mass/Vol] 7 mg/dL Normal 7-21 [facility] CBC and Differentialon 06-19 Abs Baso 0.09 k/uL Normal <0.11 [facility] Abs [place] 0.61 k/uL Normal <0.87 [facility] Abs Neut 7.56 k/uL High 1.45-7.50 [facility] Absolute nRBC <0.01 Normal <0.01 [facility] Basophils/100 WBC (Bld) 0.7 % Normal [facility] DTYPE Auto Diff Normal [facility] Eosinophils (Bld) [#/Vol] 0.25 10*3/uL Normal <0.46 [facility] Eosinophils/100 WBC (Bld) 1.9 % Normal [facility] Erythrocyte distribution width (RBC) [Ratio] 12.0 % Normal 11.5-15.0 [facility] Hematocrit (Bld) [Volume fraction] 52.6 % High 36.0-46.0 [facility] Hemoglobin (Bld) [Mass/Vol] 18.0 g/dL High 11.5-15.5 [facility] Lymphocytes (Bld) [#/Vol] 4.67 10*3/uL High 1.00-4.00 [facility] Lymphocytes/100 WBC (Bld) 35.4 % Normal [facility] MCH (RBC) [Entitic mass] 30.0 pG Normal 26.0-34.0 [facility] MCHC (RBC) [Mass/Vol] 34.2 g/dL Normal 30.5-36.0 [facility] MCV (RBC) [Entitic vol] 87.7 fL Normal 80.0-100.0 [facility] Monocytes/100 WBC (Bld) 4.6 % Normal [facility] Neutrophils/100 WBC (Bld) 57.4 % Normal [facility] NRBCs 0.0 /100 WBC Normal 0 [facility] Platelet mean volume (Bld) [Entitic vol] 10.1 fL Normal 9.0-12.7 [facility] Platelets (Bld) [#/Vol] 370 10*3/uL Normal 150-400 [facility] RBC (Bld) [#/Vol] 6.00 10*6/uL High 3.90-5.20 [facility] WBC (Bld) [#/Vol] 13.18 10*3/uL High 3.70-11.00 [facility] ED NOTEon 06-19-2019 ED NOTE HNO ID: [id number] Author: Yuki (Evaristo) EVARISTO Cruz Service: ? Author Type: Registered Nurse Type: ED Notes Filed: 06/20/2019 3:27 AM Note Text: Patient has requested valium, she says that she takes it at home. Biago updated. Normal [facility] ED NOTE HNO ID: [id number] Author: Yuki Mckenzie) EVARISTO Cruz Service: ? Author Type: Registered Nurse Type: ED Notes Filed: 06/20/2019 3:27 AM Note Text: Patient is complaining of nausea. She is requesting her saboxon as well and Biago was updated on request. [facility] ED NOTE HNO ID: [id number] Author: Yuki WilksRn) EVARISTO Cruz Service: ? Author Type: Registered Nurse Type: ED Notes Filed: 06/19/2019 7:54 PM Note Text: Said that after her surgery in 2016 her left pinky and ring finger are numb but she said lately her other fingers on that hand have been getting numb as well. [facility] ED NOTE HNO ID: [id number] Author: Vanessa WilksRn) EVARISTO Ruiz Service: ? Author Type: Registered Nurse Type: ED Notes Filed: 06/19/2019 6:48 PM Note Text: Patient has chronic neck pain for three years. Saw spine doctor 06/12/2019 for the same had x rays. Denies any new injury. States pain goes into left arm. Arrived via wheelchair [facility] ED PROV NOTEon 06-19-2019 ED PROV NOTE HNO ID: [id number] Author: Tracy Arredondo Service: Emergency Medicine Author [...] light touch over bilateral lower extremities. 3/5 healthcare network consultant, bicep, tricep strength over LUE. Decreased sensation to light touch over left upper extremity in median, radial, and ulnar nerve distribution. 5/5 healthcare network consultant, bicep, tricep strength of R UE. Skin: [...] neurosurgical consult as previous notes from her principal bioinformatics specialist recommend obtaining EMG and possible further [...] a neurosurgical consult she warrants transfer to [facility] for further management of her condition. We have low suspicion for stroke at this time as pain appears to be radicular in nature and she has had worsening progression of her symptoms with documented notes from spine (Dr. Álvarez) suggesting this worsening pain and numbness. The GEODESIST, Talita, at [facility] recommended we obtain a CT brain and she must rule out any acute intercranial abnormality that may be contributing to the patient's symptoms. Therefore, this study was ordered and will be followed up by the night team especially if there is any acute intracranial abnormality. As long as there is no acute intracranial abnormality she will be transferred to [facility] for further evaluation and management of her condition. Patient voiced understanding was in agreement with the above plan. This patient's case was discussed with Dr. Arredondo who personally evaluated the patient supervised her care. The patient was TRANSFERRED to: [facility] Condition at time of disposition: stable SIGNATURE: NORMA Montgomery (Pa) 06/20/19 0026 Attending Note I have personally performed a face to face assessment of the patient and have reviewed the PA/TALENT PARTNER note. My schofield findings include: History is [...] of 5 strength left upper extremities in healthcare network consultant strength as well as biceps and triceps [...] worsening neck pain we will place her [facility] observation for cardiac rule out as well [...] and requested by the observation provider at [facility] as they were concerned about stroke. However I doubt this and did not feel this was necessary however it is currently pending and patient will be transferred to [facility] if this is unremarkable. Signature: Tracy Arredondo DO Date: 06/20/2019 Time: 12:26 AM Tracy Arredondo 06/20/19 0033 Normal [facility] Magnesiumon 06-19-2019 Magnesium [Mass/Vol] 2.0 mg/dL Normal 1.7-2.3 [facility] Troponin Ton 06-19-2019 Troponin T.cardiac [Mass/Vol] ug/L Normal 0.000-0.029 [facility] CNOVon 06-12-2019 CNOV Office Visit (SPNMMN ) MORALES LEE ([id number]) 1975 F Date Time Provider Department 06/12/19 [...] file Gets together: Not on file Attends worship service: Not on file Active member of [...] [Z98.890] Order(s):PATIENT PLACED ON SPINE CARE PATH [9137127] Order #: [id number]: 1 XR SCOLIOSIS PA STAND/LAT 2V [[id number]] Order #: [id number] FUTURE EMG(NEURO/NI) [[id number]] Order #: [id number]: 1 FUTURE CONSULT TO SPINE SURGERY [[id number]] Order #: [id number]: 1 FUTURE Prescriptions as of 06/12/2019 Sig: [...] encounter FLUOXETINE 20 MG CAPSULE >> Talita Raay Ma 06/12/2019 8:07 AM >> TALITA RAYA [...] Status:Closed by DIXIE TEE MD on 06/12/19 [facility] PROGRESSon 06-12-2019 PROGRESS HNO ID: [id number] Author: Zoey Aponte (RtRobert Montiel Service: Radiology Author Type: Laboratory Animal Care Veterinarian Type: Progress Notes Filed: 06/12/2019 10:10 AM [...] RT Daxa June 12, 2019 10:09 AM [facility] PROGRESS HNO ID: [id number] Author: Dixie Tee Service: ? Author Type: [...] file Gets together: Not on file Attends worship service: Not on file Active member of [...] healed incisions. Chest: symmetric expansion Data Review: [facility] records reviewed Care everywhere Lumbar CT scan-02/2019-report [...] June 12, 2019 TIME: 8:12 AM Normal [facility] XR SCOLIOSIS 2V PA STAND/LAT on 06-12-2019 [...] changes and multilevel compression deformities as described. Face Worker: PSCB Transcribe Date/Time: Jun 12 2019 4:36P Dictated by : CAROLINA MOJICA MD This examination was interpreted and the report reviewed and electronically signed by: CAROLINA MOJICA MD on Jun 12 2019 4:39PM EST [id number] Normal [facility] PROGRESSon 05-14-2019 PROGRESS HNO ID: [id number] Author: Laury Levin Service: ? Author Type: Physician Buildings And Grounds Superintendent Type: Progress Notes Filed: 05/14/2019 1:26 PM [...] to rule out cubital tunnel syndrome. Normal [facility] PROGRESSon 05-09-2019 PROGRESS HNO ID: [id number] Author: Kathia Kelly Service: ? Author Type: ? Type: Progress Notes Filed: 05/14/2019 1:26 PM Note Text: Patient name: Morales Lee Are you being referred by a [facility] Provider or Pain Management Provider at [facility]? No If answer is YES please schedule directly with surgeon, triage does not need to be completed. Is this a self-referral No If not, who is the Referring Provider: Dr. Hendricks/ [facility] MRI/CT/myelogram within 12 months: Yes If No , please refer to medical spine or PCP to complete above imaging, triage does not need to be completed Imaging viewable in Epic: No If not, please provide [phone] to fax in imaging reports for review. [...] will fax imaging report and op notes. [phone] Normal [facility] CT-CT C-SPINE WO CON IMPORTo n 02-13-2019 CT-CT C-SPINE WO CON IMPORT Images were obtained outside of [facility] [id number] Normal [facility] CT-CT L-SPINE WO CON IMPORTo n 02-13-2019 CT-CT L-SPINE WO CON IMPORT Images were obtained outside of [facility] [id number] Normal [facility] Vital Signs Date Time Vital Sign Value Performing Clinician Facility 06-07-2022 12:48-0400 Diastolic blood pressure 83 mm[Hg] No Pcp Required [facility] 06-07-2022 12:48-0400 Heart rate 67 /min No Pcp Required [facility] 06-07-2022 12:48-0400 Respiratory rate 16 /min No Pcp Required [facility] 06-07-2022 12:48-0400 SaO2% (BldA) [Mass fraction] 96 % No Pcp Required [facility] 06-07-2022 12:48-0400 Systolic blood pressure 148 mm[Hg] No Pcp Required [facility] 01-06-2022 10:51-0400 Blood Pressure Location NATALIA MANNING [facility] 01-06-2022 10:51-0400 Diastolic blood pressure 86 mm[Hg] NATALIA MANNING [facility] 01-06-2022 10:51-0400 Heart rate 86 /min NATALIA MANNING [facility] 01-06-2022 10:51-0400 Respiratory rate 16 /min NATALIA MANNING [facility] 01-06-2022 10:51-0400 Systolic blood pressure 132 mm[Hg] NATALIA MANNING [facility] 09-08-2021 14:15-0500 Body height 149.86 cm No PCP None [facility]-Neurosurgery- Ah uja Work Phone: 09-08-2021 14:15-0500 Body mass index (BMI) [Ratio] 36.96 kg/m2 No PCP None HJ-Fmzkrheerjtw-Uy uja Work Phone: 09-08-2021 14:15-0500 Body surface area Derived from formula 1.78 m2 No PCP None EN-Jlchevhbxcju-Jl uja Work Phone: 09-08-2021 14:15-0500 Body weight 83.01 kg No PCP None [facility]- [facility] Work Phone: 09-08-2021 14:15-0500 Diastolic blood pressure 68 mm[Hg] No PCP None QL-Sfygdeoabzss-Ig uja Work Phone: 09-08-2021 14:15-0500 Heart rate 96 /min No PCP None [facility]- [facility] Work Phone: 09-08-2021 14:15-0500 Respiratory rate 16 /min No PCP None [facility]Neurosurgery -Ah uja Work Phone: 09-08-2021 14:15-0500 Systolic blood pressure 115 mm[Hg] No PCP None JP-Farbhwxriuvl-Fs uja Work Phone: 09-08-2021 14:15-0500 0 1 No PCP None [facility]- Ah uja Work Phone: Comment on above: [facility] 01-01-2021 16:46-0400 Heart rate 111 /min No Pcp Required [facility] 01-01-2021 16:46-0400 SaO2% (BldA) [Mass fraction] 95 % No Pcp Required [facility] 01-01-2021 14:00-0400 Body temperature 96.8 [degF] No Pcp Required [facility] 01-01-2021 14:00-0400 Diastolic blood pressure 77 mm[Hg] No Pcp Required [facility] 01-01-2021 14:00-0400 Respiratory rate 18 /min No Pcp Required [facility] 01-01-2021 14:00-0400 Systolic blood pressure 114 mm[Hg] No Pcp Required [facility] Encounters Encounter Date Encounter Type Care Provider [...] encounter procedure Danya Bingham [facility] Start: 11-22-2022 ambulatory MENDOSA H FAWWAD Facilit y:[facility]1 Start: 11-09-2022 End: 11-09-[address] DEVANTE ELIZONDO . Facility:[facility] Start: 10-22-2022 ambulatory Young Hargrove Faci lity:SHAHZAD [place] Start: 10-15-2022 End: 10-15-2022 ambulatory KYRA DIAB . Facility:[facility] Start: 09-24-2022 End: 09-25-2022 ambulatory MENDOSA FAWWAD Facility:[facility] [place] Start: 09-24-2022 End: 09-24-2022 Patient encounter procedure Danya Bingham [facility] Start: 09-01-2022 Encounter for preprocedural laboratory examination DANYA BINGHAM . [facility] Start: 08-25-2022 End: 08-26-2022 ambulatory MENDOSA H FAWWAD Facility:[facility] Start: 08-24-2022 End: 08-25-2022 ambulatory MENDOSA H FAWWAD Facility:[facility] Start: 08-24-2022 End: 08-25-2022 Encounter for preprocedural laboratory examination MENDOSA H FAWWAD Facility:[facility] Start: 08-21-2022 ambulatory MENDOSA H FAWWAD Facilit y:H1 Start: 07-28-2022 ambulatory MENDOSA FAWWAD Facility: [id number] Start: 07-16-2022 End: 07-17-2022 ambulatory MENDOSA FAWWAD Facility:SHAHZ[facility] [place] Start: 07-16-2022 End: 07-16-2022 Patient encounter procedure Danya Bingham [facility] Start: 06-06-2022 End: 06-07-2022 Emergency department patient visit Yony Aguirre [facility] Adult ED Blue 45 Start: 05-31-2022 End: 05-31-[address] ALEXANDRU SORIA . Facility:[facility]1 Start: 05-19-2022 End: 05-20-2022 ambulatory SHAIKH BIN Facility:[facility] Start: 05-19-2022 End: 05-19-2022 [facility] Start: 05-07-2022 End: 05-07-2022 ambulatory SHAIKH Shirley [...] 02-04-2022 Off-Site Danya Bingham [facility] [place] Start: 01-11-2022 Chart Update No PCP None MG-Neurosu [facility] [place] Work Phone: Start: 01-11-2022 End: 01-11-2022 Patient encounter procedure Danya Bingham [facility] Start: 01-07-2022 AUDIT No PCP None MG-Neurosu rgery-[facility] [place] [address] Work Phone: Start: 01-06-2022 End: 01-06-2022 Patient encounter procedure NATALIA MANNING [facility] [place] Start: 10-13-2021 AUDIT No PCP None MG-Neurosu rgery-[facility] Work Phone: Start: 09-29-2021 AUDIT No PCP None MG-Gastroe nterology-[facility] [place] 6 [facility] Work Phone: Start: 09-15-2021 End: 10-02-2021 Evaluation and management of inpatient Dr. LEX FREDERICK Facility:[facility] Start: 09-09-2021 AUDIT No PCP None MG-Neurosu rgery-[facility]iguel Work Phone: Start: 09-08-2021 Office outpatient vi sit 40 minutes No PCP None EI-Gsrwmtvymhbr-Zxzgj Work Phone: Start: 05-05-2021 Postop follow up vis it related to original px No PCP None LX-Jzdftgbecezl-SQSGB Work Phone: Start: 12-26-2020 End: 01-01-2021 Evaluation and management of inpatient Lex Frederick [facility] [id number] Preoperative state No PCP None MG-Neuros urgery-[facility] Work Phone: Procedures Date Procedure Procedure Detail Performing Clinician Start: 09-21-[address] EFRAIN FREDERICK Comment on above: Performed By: #### A FPA3 #### [facility] [address] [place] [address] Start: 09-21-[address] EFRAIN FREDERICK Comment on above: Order Comment: VENECIA ESPINO, 09/21/2021 05:08TEST TYPE + SCREEN WAS CANCELLED, 09/21/2021 05:06 NO PHLEB ID ON TUBE. Result Comment: CALL ED RN AFSANEH ESPINO, 09/21/2021 05:08 Performed By: #### A FPA3 #### [facility] [address] [place] [address] Start: 09-17-[address] EFRAIN FREDERICK Comment on above: Performed By: #### T +S #### [facility] [address] [place] [address] Start: 12-27-2020 End: 12-28-2020 Release Blood Product-Packed [...] Lex Frederick, Status: Pen, Time: 2:00 PM NL-Joyowkaclmkwrgib-Xm lwell 6 I Work Phone: Start: 10-07-2021 Admission to [facility] RNSTEPHANIEIT, Provider: NURSE VISIT ASHLEY 5TH,MGNEUROSURGERY, Status: Pen, Time: 10:15 AM KH-Laxcbghmepblhnti-Kc lwell 6 I Work Phone: Start: 09-18-2021 [facility], Provider: Lex Frederick, Status: Pen, Time: 8:00 AM [facility], Provider: Lex Frederick, Status: Pen, Time: 8:00 AM TY-Enjbadfbknft-Eitsm Work Phone: Start: 01-08-2021 Patient encounter procedure Neurosurgery Miguel Start: 12-31-2020 End: 01-01-2022 [facility] Comment on above: please place at beds geraldine for drain removal Start: 12-26-2020 End: 12-27-2021 Naloxone Injectable 0.4 mg IntraVenous Push Once ; (NARCAN)DOSE = 0.2 mg IntraVenous Push Once, PRN patient is unarousable, and respiratory rate lessClinician Notes: 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 immediately Immunizations Immunization Date Immunization Notes Care Provider Delfino chu 02-22-2020 tetanus toxoid, redu luis diphtheria toxoid, and acellular pertussis vaccine, adsorbed Danya Sisijacque [facility] 12-05-2018 hepatitis A vaccine, adult dosage Danya Zachery [facility] Payers Date Payer Category Payer Unknown 1975 Unknown [id number] 2.16. [id number] 1975 Unknown [id number] .. [id number] 1975 Unknown [id number] 2.16.84 0.1.121127.3.579.2.593 1975 Unknown [id number] 2.16.84 0.1.839412.3.579.2.593 1975 Unknown [id number] 2.16.84 0.1.834808.3.579.2.593 1975 Unknown [id number] 2.16.84 0.1.174470.3.579.2.593 1975 Unknown [id number] 2.16.84 0.1.604535.3.579.2.593 1975 Unknown [id number] 2.16.84 0.1.849977.3.579.2.593 1975 Unknown [id number] 2.16.84 0.1.963103.3.579.2.593 1975 Unknown [id number] 2.16.84 0.1.270305.3.579.2.593 1975 Unknown [id number] 2.16.84 0.1.538274.3.579.2.593 1975 Unknown [id number] 2.16.84 0.1.728453.3.579.2.593 1975 Unknown [id number] 2.16.84 0.1.121830.3.579.2.593 1975 Unknown [id number] 2.16.84 0.1.264040.3.579.2.593 1975 Unknown [id number] 2.16.84 0.1.119635.3.579.2.593 1975 Unknown [id number] 2.16.84 0.1.033238.3.579.2.593 1975 Unknown [id number] 2.16.84 0.1.759473.3.579.2.593 1975 Unknown [id number] 2.16.84 0.1.037416.3.579.2.593 1975 Unknown [id number] 2.16.84 0.1.759328.3.579.2.593 1975 Unknown [id number] 2.16.8 40.1.281809.3.579.2.727 1975 Unknown [id number] 2.16.8 40.1.817713.3.579.2.727 1975 Unknown [id number] 2.16.8 40.1.391498.3.579.2.727 1975 Unknown [id number] 2.16.8 40.1.693774.3.579.2.727 1975 Unknown [id number] 2.16.8 40.1.214819.3.579.2.727 1975 Unknown [id number] 2.16.8 40.1.905567.3.579.2.727 1975 Unknown [id number] 2.16.8 40.1.661003.3.579.2.727 1975 Unknown [id number] 2.16.8 40.1.379287.3.579.2.1046 1959 Unknown [id number] Social History Date Type Detail Facility [facility] Tobacco smoking consumption unknown [facility] History of drug use History of drug use M K-Gfptyehrnqmw-MVKJG Work Phone: Start: 01-05-2016 Tobacco smoking status Smokes tobacco daily (finding) [facility] Comment on above: 1ppd 1ppd Sex Assigned At Female [facility] Medical Equipment Procedure Code Equipment Code Equipment Origin al Text Equipment Identifier Dates 2 EA, SubLingual , Daily, Refill(s) 0 Start: 01-05-2016 2 EA, SubLingual , Daily, Refill(s) 0 Start: 01-05-2016 2 EA, SubLingual , Daily, Refill(s) 0 Start: 01-05-2016 Functional Status Date Assessment Result Facility 11-26-2022 Functional Status N/A [facility] 07-16-2022 Functional Status N/A [facility] Functional observable [facility] Mental Status Date Assessment Result Facility 12-29-2020 Cognitive functi ons [id number] [facility] Clinical Notes 12-26-2020 to 11-26-2022 Note Date [...] Document Reviewed: 10/01/2017 Elsevier Patient Education 2019 [employer]. Follow Up Care 10/14/2022 11:11:52 With:Danya Bingham MD, URL, URO Address: When: Unknown [facility] 09-23-2022 Hospital Discharg e instructions [...] including vitamins, herbs, eye drops, creams, and hrlq-iok-azkwrao medicines. Any problems you or family members [...] provider tells you to take them. Taking mtcq-yff-ofrrqti medicines, vitamins, herbs, and supplements. General instructions [...] Document Reviewed: 10/08/2019 Elsevier Patient Education 2020 [employer] Follow Up Care 08/31/2022 10:49:10 With:Zachery HARKINS, CAROLEE [place], URO Address: When: Unknown [facility] 07-16-2022 Hospital Discharg e instructions Patient Education [...] (electrical nerve stimulation). For women, using a medical device sales consultant to prevent urine leaks. This is a [...] right after experiencing incontinence. General instructions Take aivp-qur-tieoezc and prescription medicines only as told by [...] 09/29/2005 Document Revised: 09/01/2018 Document Reviewed: 12/01/2017 [employer] Patient Education 2020 [employer] Follow Up Care 06/15/2022 11:30:52 With:Zachery HARKINS, CAROLEE [place], URO Address: When: Unknown [facility] 02-04-2022 Hospital Discharg e instructions Patient Education [...] (electrical nerve stimulation). For women, using a medical device sales consultant to prevent urine leaks. This is a [...] right after experiencing incontinence. General instructions Take mwtw-ifj-mctxbyb and prescription medicines only as told by [...] 09/29/2005 Document Revised: 09/01/2018 Document Reviewed: 12/01/2017 [employer] Patient Education 2020 [employer]. 02/04/2022 16:23:10 Calorie Counting for Weight Loss [...] 08/22/2006 Document Revised: 05/11/2019 Document Reviewed: 07/22/2017 [employer] Patient Education [employer]. Follow Up Care 02/04/2022 13:28:46 With:Danya Bingham MD, URL, URO Address: When: Unknown [facility] 01-11-2022 Evaluation + Plan note Extrac alexander [...] and Plan Diagnosis Bowel and bladder incontinence (AYR63-AJ R32, Billing Diagnosis, Medical). Incontinence without sensory awareness (EYP83-XY N39.42, Working, Medical). Diagnosis Bowel and bladder incontinence (LJI53-UE R32, Billing Diagnosis, Medical). Incontinence without sensory awareness (YHP16-VZ N39.42, Working, Medical). Addendum by Danya Bingham MD on January 11, 2022 10:23 EDT Post procedure diagnosis: Intrinsic sphincter deficiency, acontractile detrusor [facility]05-09-2022 Hospital Discharge instructions Patient Education 01/11/2022 [...] Up Care 01/06/2022 11:41:34 With:Danya Bingham Address: [facility] [address] [phone] Business (1) When: Unknown Comments:Call for followup appointment in 2-3 weeks With:Danya Bingham Address:Unknown When: Unknown [facility]05-04-2022 Hospital Discharge instructions Patient Education 01/06/2022 [...] clinics. Check with your local health department. [facility], where you would pay only what you can afford. To find one near you, check this website: [email or web address]/ [facility]. These are part of a [...] information Learn more about cervical cancer from: [place] [employer]: www.acog.org/Patients/FAQs/Cervical-Cancer [place] [employer]: www.cancer.org/cancer/cervicalcancer/ U.S. Centers for Disease [...] 09/05/2016 Document Revised: 09/23/2018 Document Reviewed: 04/19/2017 [employer] Patient Education 2020 [employer]. Follow Up Care 11/20/2021 10:16:51 With:NIGEL GREEN, NATALIA Santillan, URL Address: [address] 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 Instead, bend at knees to product picker objects (more content not included)...[facility]01-26-2022 NoteThis report has been cancelled.[facility]01-17-2022 NotePROCEDURE DETAILS Postoperative Diagnosis: lumbar stenosis Surgeon: Dr. Lex Frederick Resident/Fellow/Other Buildings And Grounds Superintendent: Chery Awan Procedure: posterior L4-L5 decompression posterior [...] Completion Last Updated: 22-Sep-2021 10:54 by Lex Frederick)[facility]01-17-2022 NoteHistory & Physical Reviewed: /Lactating: Are You [...] the note. I personally evaluated the patient [id number] Electronic Signatures: Lex Frederick) (Signed 21-Sep-2021 11:50) Authored: Note Completion Co-Signer: History & Physical Reviewed, ERAS, Consent, Note Completion Jaya Mosquera (Resident)) (Signed 21-Sep-2021 02:51) Authored: History & Physical Reviewed, ERAS, Consent, Note Completion Last Updated: 21-Sep-2021 11:50 by Lex Frederick) References: 1. Data Referenced From MRI Safety Screen v2 19-Sep-2021 19:00[facility]01-15-2022 NoteRehab: Info: Mode of Treatmentoccupational therapy; attempted; OT evaluation initiated with home set-up obtained (1st floor set up/ 0 step entry, lives with , tub shower with chair); Pt with low BP upon arrival 79/54. Second BP reading taken at 71/51. RN notified, further evaluation deferred at this time. OT to reattempt when pt medically appropriate. 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 Exploration of spinal [...] performed and the images transferred to the [employer] system for use in intraoperative image-guided computer-assisted [...] using the torque dri (more content not included)...[facility]01-14-2022 NoteThis report has been cancelled.[facility]01-14-2022 NoteHistory & Physical Reviewed: /Lactating: Are You [...] the note. I personally evaluated the patient [id number] Electronic Signatures: Fidel Maciel (Resident)) (Signed 17-Sep-2021 22:49) Authored: History & Physical Reviewed, ERAS, Consent, Note Completion Lex Frederick) (Signed 19-Sep-2021 10:17) Authored: Note Completion Co-Signer: History & Physical Reviewed, ERAS, Consent, Note Completion Last Updated: 19-Sep-2021 10:17 by Lex Frederick) References: 1. Data Referenced From MRI Safety Screen v2 17-Sep-2021 11:28[facility]01-11-2022 NoteReferral Information: Consult requested by (Attending Name): [...] be able to m (more content not included)...[facility]01-11-2022 NoteHistory of Present Illness: /Lactating: Are You [...] the note. I personally evaluated the patient [id number] Electronic Signatures: Fidel Maciel (Resident)) (Signed 15-Sep-2021 [...] Plan Last Updated: 16-Sep-2021 10:20 by Lex Frederick)[facility]04-23-2021 History of Present illness Narrative* I just had the pleasure of seeing Mrs. Raghav villarreal in the Neurosurgery Spine Clinic at the [facility]. She is a very pleasant 46-year-old female, [...] Ms. LEE care. * Lex Frederick MD, [facility], FAANS * Director - Minimally Invasive Spine Surgery * [facility] * Information Tech of Neurological Surgery * [employer] * [place], [place] * Some of this note was completed using [employer] voice recognition technology and sometimes the software misinterprets words. This may include unintended errors with respect to translation of words, typographical errors or grammar errors which may not have been identified prior to finalization of the chart note. Please take this into account when reading this note. [facility] Work Phone: [phone]) 639-519404-23-2021 Reason for referral (narrative)* Reason for Referral: Patient s/p posterior bilateral L1 transpedicular decompression, posterior T7-T8, T8-T9, T9-T10, T0-T11, T11-T12, T12-L1 hutton hernandez osteotomies, Posterior T5-L4 instrumentation and fusion on 12/26 [facility] Future Appointments Appointment Date:01/07/2022 11:00:00 AM Scheduled Provider: Location:[facility] Appointment Type:Urology CALL PAT FT Appointment Date:01/11/2022 08:00:00 AM Scheduled Provider: Location:[facility] Appointment Type:Urology FT Appointment Date:01/11/2022 09:00:00 AM Scheduled Provider: Location:[facility] Appointment Type:Urology FT [facility] + [facility]* Neurological: rzolxpl5lzw 5/5 except hg/io4+ble 5/5incision cdiHead/Neck: Ox3, awake, alertBUE 5 prox, HG/IO4+BLE HF/KE/DF/PF/EHL 5 [facility]* Constitutional: in no acute distressSkin: Well perfusedEyes: OU 3RHead/Neck: atraumatic, normocephal icRespiratory/Thorax: airway intact, good chest expansionCardiovascular: normal rate, regular rhythmGastrointestinal: non-tenderNeurological: NAD, A&Ut2Cxvalmf Nerves II-XII: PERRL, EOMI, Face symmetric, Facial SILT, Palate/Tongue midline and symmetric, shoulder shrugs symmetric, hearing intact to finger rubs bilaterallyMotor: RUE D5, B5, T5, HG5, IO5LUE D5, B5, T5, HG5, IO5RLE HF 4+, KE4+, PF4-, DF3LLE HF 4+, KE4+, PF3, DF4-Sensation: SILT throughout all extremitiesPsychological: mood appropriate [facility] Narrative No data available for this section [facility] Discharge instructions* Activity:activity as [...] Certification:Home Care Services Needed: yesSkilled Disciplines Ordered: RN/FIRE PROTECTION ENGINEER, PT, OTFace to Face Encounter Completed: yesDate of Encounter: [id number] Necessity for Homecare (based on clinical findings): [...] washing dishes, & loading the dryer or pulp grinder until cleared by MD. * Wound Care:Inspect [...] Neurosurgeon:Physician/Dept/Service: PopeyeurgeDr Jake davilauled Date/Time: 08-Jan-2021 10:40Location: [facility], [address] [place], [place] Number: [phone]: 2 week postop/wound check visit; Bring Insurance Card and Photo ID [facility] No data available for this section [facility] progress note No data available for this section [facility] reason for referral (narrative) , urinary incontinence, neurogenic bladder, open bladder neck, possible SP tube placement Referred by: Zachery HARKINS, Danya Rhodes [facility] Summary Purpose Family History No Family History [...] section and content) DATE CREATED AUTHOR 06/20/2019 [facility] DATE CREATED AUTHOR AUTHOR'S ORGANIZ ATION 06/20/2019 [facility] DATE CREATED AUTHOR AUTHOR'S ORGANIZ ATION 07/26/2019 [facility] DATE CREATED AUTHOR AUTHOR'S ORGANIZ ATION 12/29/2020 [facility] DATE CREATED AUTHOR AUTHOR'S ORGANIZ ATION 09/16/2021 [facility] DATE CREATED AUTHOR AUTHOR'S ORGANIZ ATION 11/25/2021 [facility] DATE CREATED AUTHOR AUTHOR'S ORGANIZ ATION 12/10/[address] [facility] DATE CREATED AUTHOR AUTHOR'S ORGANIZ ATION 08/06/2022 [facility] DATE CREATED AUTHOR AUTHOR'S ORGANIZ ATION 01/17/2023 [facility] DATE CREATED AUTHOR AUTHOR'S ORGANIZ ATION 03/13/2023 [facility] DATE CREATED AUTHOR AUTHOR'S ORGANIZ ATION 06/09/2023 [facility] <item><item> Privacy Markings (unrecogniz ed section and [...] and content) Personnel Name: JATINDER STEWARDIKH Address: [address] [place] [address] Personnel Name: SHAIKH STEWARD Address: Address: [address] [place], [place] [address]HERSON Brynn [address] Personnel Name: SHAIKH STEWARD Address: Address: [address] [place], [place] [address]nn [address] Personnel Name: SHAIKH STEWARD Address: Address: [address] [place] [address] FOR RECORDS PERTAINING TO PATIENTS WHO ARE [...] BE BASED ON THE PRIMARY CLINICAL RECORDS. [facility] provides no warranty or guarantee of the accuracy or completeness of information in this document.
[2023-09-05 22:25] VITALS: BP 138/86; PULSE 56; RESP 18; TEMP 37; O2SAT 96
--- NOTE | 2023-09-06 00:19 | ED.FEMALEGU1 ---
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 She also complained that she has a lump on her vaginal area near the buttocks. . Related Data Home Medications Medication Instructions Recorded Confirmed buprenorphine 8 mg-naloxone 2 mg 2.5 film sublingual Q24H 03/01/23 03/30/23 sublingual film bupropion HCl 150 mg 24 hr tablet, 150 mg PO DAILY 03/01/23 03/30/23 extended release cyclobenzaprine 10 mg tablet 10 mg PO Q8H 03/01/23 03/01/23 diazepam 5 mg tablet 5 mg PO Q8H PRN anxiety 03/30/23 03/30/23 furosemide 40 mg tablet 40 mg PO DAILY 03/30/23 03/30/23 gabapentin 800 mg tablet 800 mg PO TID 03/30/23 03/30/23 oxybutynin chloride 15 mg 15 mg PO DAILY 03/30/23 03/30/23 tablet,extended release 24 hr potassium bicarbonate-citric acid 20 meq PO BID 03/30/23 03/30/23 20 mEq effervescent tablet (Effer-K) promethazine 12.5 mg tablet 12.5 mg PO TID PRN nausea and 03/30/23 03/30/23 vomiting tizanidine 4 mg tablet 4 mg PO Q8H PRN muscle spasticity 03/30/23 03/30/23 zolpidem 12.5 mg tablet,extended 12.5 mg PO DAILY 03/30/23 03/30/23 release,multiphase Previous Rx's Medication Instructions Recorded levofloxacin 750 mg tablet 750 mg PO DAILY 7 days #7 tabs 03/30/23 Allergies Allergy/AdvReac Type Severity Reaction Status Date / Time codeine Allergy Severe Verified 09/05/23 22:33 Penicillins Allergy Severe Anaphylaxis Verified 09/05/23 22:33 quetiapine [From Seroquel] Allergy Severe Seizure Verified 09/05/23 22:33 PFSH PFSH Social History Smoking status: Current every day smoker Exam Narrative Exam Narrative: Nurses notes and vital signs reviewed and patient is not hypoxic. afebrile General: Well-appearing and in no apparent distress. Skin: Warm, dry, no pallor noted. Eye: Pupils are equal, round and EOMI. No scleral icterus. Cardiovascular: normal peripheral perfusion. Respiratory: No accessory muscle use or respiratory distress. Genital/buttocks: exam proctored by ED nurse Rosie - where the patient localizes the lump - bear the union of the right thigh and the right buttock - there is no abscess, ulcer or other lesion. Aden in place and draining urine. GI: Abdomen is soft, non-distended. Normal bowel sounds. No tenderness to palpation. No rebound, guarding, or rigidity noted. Neurological: A&O x4. No cranial nerve dysfunction observed. No truncal ataxia. Moves all extremities. Sensation intact. Psychiatric: Cooperative and interactive. Normal mood and affect. Constitutional Vital Signs, click to edit/add: Last Vital Signs Temp 98.6 F 09/05/23 22:25 Pulse 56 L 09/05/23 22:25 Resp 18 09/05/23 22:25 BP 138/86 09/05/23 22:25 Pulse Ox 96 09/05/23 22:25 O2 Del Method Room Air 09/05/23 22:25 Course Vital Signs Vital signs: Vital Signs Temperature 98.6 F 09/05/23 22:25 Pulse Rate 56 L 09/05/23 22:25 Respiratory Rate 18 09/05/23 22:25 Blood Pressure 138/86 09/05/23 22:25 Pulse Oximetry 96 09/05/23 22:25 Oxygen Delivery Method Room Air 09/05/23 22:25 Temperature 98.6 F 09/05/23 22:25 Pulse Rate 56 L 09/05/23 22:25 Respiratory Rate 18 09/05/23 22:25 Blood Pressure 138/86 09/05/23 22:25 Pulse Oximetry 96 09/05/23 22:25 Oxygen Delivery Method Room Air 09/05/23 22:25 MDM - Female Genitourinary MDM Narrative Medical decision making narrative: The ED nurse placed a new aden catheter - draining urine normally after placement. I then went and examined the patient with ED nurse Rosie assisting - no ulcer, abscess or other skin finding in the area in which the patient localizes the lump . She was instructed to have her caregivers continue to clean her daily - especially the pelvic/genital area which was particularly foul smelling. She can see Dr Obrien in follow up for any concerns. Discharge Plan Discharge Chief Complaint: Urogenital-Female Clinical Impression: Urinary catheter (Aden) change required Patient Disposition: Home, Self-Care Time of Disposition Decision: 00:30 Prescriptions / Home Meds: No Action diazepam 5 mg tablet 5 mg PO Q8H PRN (Reason: anxiety) furosemide 40 mg tablet 40 mg PO DAILY gabapentin 800 mg tablet 800 mg PO TID oxybutynin chloride 15 mg tablet extended release 24hr 15 mg PO DAILY Effer-K 20 mEq tablet, effervescent 20 meq PO BID promethazine 12.5 mg tablet 12.5 mg PO TID PRN (Reason: nausea and vomiting) tizanidine 4 mg tablet 4 mg PO Q8H PRN (Reason: muscle spasticity) zolpidem 12.5 mg tablet,ext release multiphase 12.5 mg PO DAILY Rx Instructions: HS levofloxacin 750 mg tablet 750 mg PO DAILY 7 Days Qty: 7 0RF bupropion HCl 150 mg tablet extended release 24 hr 150 mg PO DAILY buprenorphine-naloxone 8-2 mg film 2.5 film sublingual Q24H cyclobenzaprine 10 mg tablet 10 mg PO Q8H Instructions: Aden Catheter Placement and Care (ED) Stand Alone Forms: Portal Instructions Referrals: Shaikh Obrien MD [Primary Care Provider] - 1 week
[2023-09-06 00:51] VITALS: BP 99/62; PULSE 56; O2SAT 97
== END 2023-09-06 01:00 | disposition home or self-care (01) ==
PROVIDERS: Emergency Provider Emergency Medicine; PCP Internal Medicine
DX: Z46.6 Encounter for fitting and adjustment of urinary device (principal); Z79.899 Other long term (current) drug therapy; F17.210 Nicotine dependence, cigarettes, uncomplicated
CPT/HCPCS: 51702; 99284

== ENCOUNTER 2023-09-08 11:15 | Emergency (ER) | payer BC, SELFPAY ==
[2023-09-08 11:20] VITALS: BP 172/89; PULSE 91; RESP 16; TEMP 36.8; O2SAT 97; BMI 37.8
--- OUTSIDE RECORDS SUMMARY | 2023-09-08 11:24 | XMS_ITS | CCD ---
Author Name Unknown Address [address] [place] [address] Organization [facility] Care Team Providers Care Enterprise Systems Engineer Name Role Phone Required, No Pcp Unavailable Unavailable Lex Frederick Unavailable None, No PCP Unavailable Unavailable Unavailable Unavailable SHAIKH STEWARD Primary Care Physician [phone] Yony Aguirre Unavailable Unavailable Neurosurgery Unavailable Unavailable Dr. LEX FREDERICK Admitting Unava ilable Dr. LEX FREDERICK Attending Unava ilable Patient, Unavailable Referring Unavailable Dr. Yony Aguirre Attending Unavailable [facility] MENDOSA H Primary Care Unavailable PÉREZ PATINO Attending Unavailable PÉREZ PATINO Admitting Unavailable DR ABHINAV WEBB Attending Unavailabl e BIN, MENDOSA H Primary Care Unavailable DR ABHINAV WEBB Admitting UnavailDR ABHINAV Kc Consulting UnavailDR CLIF Cotton Admitting Unavailable DR CLIF HUTTON Consulting Unavailable [facility] MENDOSA H Primary Care Unavailable DR [...] DR ABHINAV Livingston Attending Unavailabl e [facility], [facility] Primary Care Unavailable REINECK, DR ABHINAV Livingston Admitting Unavailabl e REINECK, DR ABHINAV Livingston Consulting Unavailabl e VETO ., IVON Admitting Unavailable VETO ., IVON Attending Unavailable [facility] Primary Care Unavailable DEBORAH NGUYEN Consulting Unavailable [facility] Primary Care Unavailable REINECK, DR ABHINAV Livingston Admitting Unavailabl e REINECK, DR ABHINAV Livingston Consulting Unavailabl e REINECK, DR ABHINAV Livingston Attending Unavailabl e HAY ., DR LOW Admitting Unavailable [facility] Primary Care Unavailable HAY ., DR LOW Attending Unavailable ZIEBER, DR ENRIQUE Santana Consulting Unavailable HAY ., DR LOW Consulting Unavailable LUE ., DANYA M Admitting Unavailable LUE ., DANYA M Attending Unavailable [facility] Primary Care Unavailable [facility] Primary Care Unavailable LUE ., DANYA M Admitting Unavailable LUE ., DANYA M Consulting Unavailable LUE ., DANYA M Attending Unavailable CANDICE MATTA Consulting Unava RACHEL Oconnor Consulting Unavailable DIAB ., KYRA Admitting Unavailable [facility] Primary Care Unavailable DIAB ., KYRA Attending Unavailable GRECHNY .BONITA Consulting Unavailabl e [facility] Primary Care Unavailable LUE ., DANYA M Admitting Unavailable LUE ., DANYA M Consulting Unavailable LUE ., DANYA M Attending Unavailable PAY ., DR RODIRGUEZ Admitting Unavailable PAY ., DR RODRIGUEZ Consulting Unavailable [facility] Primary Care Unavailable PAY ., DR RODRIGUEZ Attending Unavailable [facility] Primary Care Unavailable REINECK, DR ABHINAV Livingston Admitting Unavailabl e REINECK, DR ABHINAV Livingston Consulting Unavailabl e REINECK, DR ABHINAV Livingston Attending Unavailabl e KORIN STANLEY Consulting Unavailable [facility] Primary Care Unavailable Lue, Danya M. Attending Unavailable [facility] Primary Care Unavailable Lue, Danya M. Attending Unavailable [facility], MENDOSA Primary Care Unavailable Lue, Danya M. Attending Unavailable [facility] Unavailable Danya Bingham Attending Unavailable [facility] Unavailable Danya Bingham Attending Unavailable [facility] Unavailable Danya Bingham Attending Unavailable [facility] Unavailable Danya Bingham Attending Unavailable Young Hargrove Attending Unavailable [facility] Unavailable Dr. Lex Frederick Attending Unava ilable Allergies Allergy Classification Reported Allergen(s) Allergy Type Date of Onset Reaction(s) Facility Opioid Agonists (1 source) Codeine Drug Allergy Unknown [facility] Penicillins (antibiotic) (1 source) Penicillin Drug Allergy Unknown [facility] QUEtiapine (1 source) QUEtiapine Drug Allergy Unknown [facility] (20 sources) Codeine; Translations: [Codeine] Drug Allergy Hives, Unknown MG-Neurosurger [facility] Work Phone: (20 sources) Penicillins; Translations: [Penicillins] Allergy to drug (finding) Hives, Unknown MG-Neurosurger [facility] Work Phone: (8 sources) Promethazine; Translations: [promethazine] Drug Allergy [facility] (1 source) QUEtiapine Drug Allergy Seizures [facility] (2 sources) Codeine Drug Allergy 3 [facility] (3 sources) gabapentin; Translations: [Neurontin] Drug Allergy [facility] (1 source) Levamisole Drug Allergy [facility] (1 source) Morphine Drug Allergy 0 [facility] (2 sources) Penicillins Drug allergy (disorder) 3 [facility] (1 source) QUEtiapine Drug Allergy 3 [facility] Medications Current Medications Medication Drug Class(es) [...] 2 cap(s), Refills(s) 0, [facility]: [id number], 156, cm, 07/16/22 10:58:00 EST, Height/Length Dosing, [...] day(s), # 2 tab(s), Refills(s) 0, Pharmacy: [place] [id number] [address] [facility], 156, cm, 01/06/22 10:53:00 EDT, Height/Length Dosing, 78, kg, 01/06/22 10:53:00 EDT... Start Date: 01/06/22 Stop Date: 01/08/22 Status: Ordered diazePAM 5 mg oral tablet (20 sources) Benzodiazepine Start: 09-30-2021 take 1 tablet by mouth every eight hours as needed diazePAM 5 mg oral tablet ; 1 tab(s) orally every 8 hours, As needed, Anxiety Quantity: 0 Refills: 0 Ordered: 30-Sep-2021 Concetat Shi Start: 30-Sep-2021 Status: Discontinued Generic Substitution [...] Allowed docusate sodium 50 mg / sennosides, penitentiary 8.6 mg oral tablet (2 sources) Start: [...] Daily, # 30 tab(s), Refills(s) 3, Pharmacy: [address], 156, cm, 02/04/22 15:47:00 EDT, Height/Length [...] Daily, # 30 tab(s), Refills(s) 11, [facility]: [facility] #[id number], 156, cm, 07/16/22 10:58:00 EST, Height/Length Dosing, 78, kg, 07/16/22 10:58:00 EST, Weight Dosing Start Date: 10/04/22 Status: Ordered Start: 07-16-2022 take 1 tablet by marlen th once daily oxybutynin 10 mg ER Tab 10 mg = 1 tab(s), Oral, Daily, # 30 tab(s), Refills(s) 11, [facility]: [facility] #[id number], 156, cm, 07/16/22 10:58:00 EST, Height/Length Dosing, 78, kg, 07/16/22 10:58:00 EST, Weight Dosing Start Date: 07/16/22 Status: Ordered Start: 03-10-2022 take 1 tablet by marlen once daily oxybutynin 10 mg ER Tab 10 mg = 1 tab(s), Oral, Daily, # 30 tab(s), Refills(s) 3, [facility]: [facility] [facility], 156, cm, 02/04/22 15:47:00 EDT, [...] 07-Jan-2021 Generic Substitution Allowed polyethylene glycol 3350 10737 mg powder for oral solution (2 sources) [...] Daily, # 30 cap(s), Refills(s) 0, Pharmacy: [address], 156, cm, 01/07/22 13:43:00 EDT, Height/Length [...] Active Start: 01-05-2016 take 2 capsules by [facility] three times daily Neurontin 100 mg Cap 200 mg = 2 cap(s), Oral, TID, Refills(s) 0 Start Date: 01/05/16 Status: Ordered take 1 tablet by marlen three times daily gabapentin 800 mg oral tablet ; 1 tab(s) oral 3 times a day Quantity: 0 Refills: 0 Ordered: 12-Dec-2020 Caorle Mcdaniel Generic Substitution Allowed lisinopril 20 mg [...] # 2 cap(s), Refills(s) 0, [facility]: [facility] #[id number], 156, cm, 11/26/22 8:15:00 EDT, Height/Length Dosing, [...] Discontinued Generic Substitution Allowed polyethylene glycol 3350 788462 mg / potassium chloride 2970 mg / sodium bicarbonate 6740 mg / sodium chloride 5860 mg / sodium sulfate 54783 mg powder for oral solution (8 sources) [...] Range Facility ED Note-Physicianon 03-14-20 ED Note-Physician [id number]#1.00CD:127 [facility] ED Note-Physicianon 01-23-20 ED Note-Physician [id number]#1.00CD:127 [facility] ED Note-Physician [id number]#1.00CD:127 Normal [facility] Lab Reportson 01-22-2023 Lab Reports [id number]#1.00CD:127 Normal [facility] Patient Correspondenceon Patient Correspondence [id number]#1.00CD:127 Normal [facility] CULTURE URINEon 01-16-2023 CULTURE URINE Isolate 1 [...] R F Nitrofurantoin <=16 S F Normal [facility] Comment on above: Performed By: #### U MICRO, ERUR #### [facility] [address] [place] [address] Dr. Alfredo Lizama CBC AUTO DIFFon 01-13-2023 BASO # 0.1 103/ul Normal 0.0-0.1 [facility] Comment on above: Performed By: #### U MICRO, ERUR #### [facility] [address] [address] [address] Alfredo Lizama Basophils/100 WBC (Bld) 0.7 % Normal 0.2-2.0 [facility] Comment on above: Performed By: #### U MICRO, ERUR #### [facility] [address] [address] [address] Alfredo Lizama EO # 0.3 103/ul Normal 0.0-0.7 [facility] Comment on above: Performed By: #### U MICRO, ERUR #### [facility] [address] [address] [address] Alfredo Lizama Eosinophils/100 WBC (Bld) 3.2 % Normal 0.9-7.0 [facility] Comment on above: Performed By: #### U MICRO, ERUR #### [facility] [address] [place] [address] Dr. Alfredo Lizama Erythrocyte distribution width (RBC) [Ratio] 13.0 % Normal 11.0-15.0 [facility] Comment on above: Performed By: #### U MICRO, ERUR #### [facility] [address] [place] [address] Dr. Alfredo Lizama Hematocrit (Bld) [Volume fraction] 43.2 % Normal 36.0-48.0 [facility] Comment on above: Performed By: #### U MICRO, ERUR #### [facility] [address] [place] [address] Dr. Alfredo Lizama Hemoglobin (Bld) [Mass/Vol] 14.1 g/dL Normal 12.0-16.0 [facility] Comment on above: Performed By: #### U MICRO, ERUR #### [facility] [address] [place] [address] Dr. Alfredo Lizama IG # 0.02 10e3/ul Normal 0.00-0.03 [facility] Comment on above: Performed By: #### U MICRO, ERUR #### [facility] [address] [place] [address] Dr. Alfredo Lizama IG % 0.2 % Normal 0.0-0.5 [facility] Comment on above: Performed By: #### U MICRO, ERUR #### [facility] [address] [place] [address] Dr. Alfredo Lizama LYMPH # 3.0 103/ul Normal 1.2-3.8 [facility] Comment on above: Performed By: #### U MICRO, ERUR #### [facility] [address] [place] [address] Dr. Alfredo Lizama Lymphocytes/100 WBC (Bld) 35.6 % Normal 20.5-60.0 [facility] Comment on above: Performed By: #### U MICRO, ERUR #### [facility] [address] [place] [address] Dr. Alfredo Lizama MANUAL DIFF REQ NO Normal [facility] Comment on above: Performed By: #### U MICRO, ERUR #### [facility] [address] [place] [address] Dr. Alfredo Lizama MCH (RBC) [Entitic mass] 29.4 pg Normal 26.7-34.0 [facility] Comment on above: Performed By: #### U MICRO, ERUR #### [facility] [address] [place] [address] Dr. Alfredo Lizama MCHC (RBC) [Mass/Vol] 32.6 g/dL Normal 29.9-35.2 [facility] Comment on above: Performed By: #### U MICRO, ERUR #### [facility] [address] [place] [address] Dr. Alfredo Lizama MCV (RBC) [Entitic vol] 90.0 fL Normal 81.0-99.0 [facility] Comment on above: Performed By: #### U MICRO, ERUR #### [facility] [address] [place] [address] Dr. Alfredo Lizama MONO # 0.4 103/ul Normal 0.3-0.8 [facility] Comment on above: Performed By: #### U MICRO, ERUR #### [facility] [address] [place] [address] Dr. Alfredo Lizama Monocytes/100 WBC (Bld) 4.8 % Normal 1.7-12.0 [facility] Comment on above: Performed By: #### U MICRO, ERUR #### [facility] [address] [place] [address] Dr. Alfredo Lizama NEUT # 4.7 103/ul Normal 1.4-6.5 [facility] Comment on above: Performed By: #### U MICRO, ERUR #### [facility] [address] [place] [address] Dr. Alfredo Lizama Neutrophils/100 WBC (Bld) 55.5 % Normal 43.0-75.0 [facility] Comment on above: Performed By: #### U MICRO, ERUR #### [facility] [address] [place] [address] Dr. Alfredo Lizama Platelet mean volume (Bld) [Entitic vol] 9.5 fL Normal 9.5-13.5 [facility] Comment on above: Performed By: #### U MICRO, ERUR #### [facility] [address] [place] [address] Dr. Alfredo Lizama PLT 267 103/ul Normal 150-450 [facility] Comment on above: Performed By: #### U MICRO, ERUR #### [facility] [address] [place] [address] Dr. Alfredo Lizama RBC 4.80 106/ul Normal 4.20-5.40 [facility] Comment on above: Performed By: #### U MICRO, ERUR #### [facility] [address] [place] [address] Dr. Alfredo Lizama WBC 8.5 103/ul Normal 4.0-11.0 [facility] Comment on above: Performed By: #### U MARCY, ERUR #### [facility] [address] [place] [address] Dr. Alfredo Lizama ER URINE PROFILEon 3 Bilirubin Ql (U) Negative Normal NEGATIVE [facility] Comment on above: Performed By: #### FER CHAVESICRO #### [facility] [address] [place] [address] Dr. Alfredo Lizama Clarity (U) CLOUDY Abnormal CLEAR [facility] Comment on above: Performed By: #### CHINMAY CHAVESRO #### [facility] [address] [place] [address] Dr. Alfredo Lizama Color (U) YELLOW Normal YELLOW [facility] Comment on above: Performed By: #### CHINMAY CHAVESRO #### [facility] [address] [place] [address] Dr. Alfredo LÓPEZD A micrscopic examina tion will be performed if indicated. Normal [facility] Comment on above: Performed By: #### FER CHAVESICRO #### [facility] [address] [place] [address] Dr. Alfredo Lizama Glucose Ql (U) Negative Normal NEGATIVE [facility] Comment on above: Performed By: #### Jacque ESTRADA UMICRO #### [facility] [address] [place] [address] Dr. Alfredo Lizama Hemoglobin Ql (U) MODERATE Abnormal NEGATIVE [facility] Comment on above: Performed By: #### E SEAN, UMICRO #### [facility] [address] [place] [address] Dr. Alfredo Lizama Ketones Ql (U) TRACE Abnormal NEGATIVE [facility] Comment on above: Performed By: #### Jacque ESTRADA UMICRO #### [facility] [address] [place] [address] Dr. Alfredo Lizama LEUKOCYTES SMALL Abnormal NEGATIVE [facility] Comment on above: Performed By: #### Jacque ESTRADA UMICRO #### [facility] [address] [place] [address] Dr. Alfredo Lizama Nitrite Ql (U) Negative Normal NEGATIVE [facility] Comment on above: Performed By: #### Jacque ESTRADA UMICRO #### [facility] [address] [place] [address] Dr. Alfredo Lizama pH (U) 8.0 [pH] Normal 5-9 [facility] Comment on above: Performed By: #### Jacque ESTRADA UMICRO #### [facility] [address] [place] [address] Dr. Alfredo Lizama Protein (U) [Mass/Vol] 100 mg/dL Abnormal NEGATIVE/ TRACE [facility] Comment on above: Performed By: #### Jacque ESTRADA UMICRO #### [facility] [address] [place] [address] Dr. Alfredo Lizama SPEC GRAVITY 1.015 Normal 1.005-<=1.0 25 [facility] Comment on above: Performed By: #### Jacque ESTRADA UMICRO #### [facility] [address] [place] [address] Dr. Alfredo Lizama UR MICRO IND INDICATED Normal [facility] Comment on above: Performed By: #### Jacque ESTRADA UMICRO #### [facility] [address] [place] [address] Dr. Alfredo Lizama Urobilinogen Qn (U) 1.0 {Tesha'U}/dL Normal 0.2 - 1. 0 [facility] Comment on above: Performed By: #### E RURFERICRO #### [facility] [address] [place] [address] Dr. Alfredo Lizama PROF CHEM 8 (BAS METB)on Anion gap [Moles/Vol] 8.4 mmol/L Normal [facility] Comment on above: Performed By: #### U MICRO, ERUR #### [facility] [address] [place] [address] Dr. Alfredo Lizama Calcium [Mass/Vol] 8.7 mg/dL Normal 8.5-10.1 [facility] Comment on above: Performed By: #### U MICRO, ERUR #### [facility] [address] [place] [address] Dr. Alfredo Lizama Chloride [Moles/Vol] 107 mmol/L Normal 98-107 [facility] Comment on above: Performed By: #### U MICRO, ERUR #### [facility] [address] [place] [address] Dr. Alfredo Lizama CO2 [Moles/Vol] 28.3 mmol/L Normal 21.0-32.0 [facility] Comment on above: Performed By: #### U MICRO, ERUR #### [facility] [address] [place] [address] Dr. Alfredo Lizama Creatinine [Mass/Vol] 0.70 mg/dL Normal 0.55-1.02 [facility] Comment on above: Performed By: #### U MICRO, ERUR #### [facility] [address] [place] [address] Dr. Alfredo Lizama EGFR-AF BOLIVIAN >60 Normal >=60 [facility] Comment on above: Performed By: #### U MICRO, ERUR #### [facility] [address] [place] [address] Dr. Alfredo Lizama EGFR-NON AF BOLIVIAN >60 Normal >=60 [facility] Comment on above: Performed By: #### U MICRO, ERUR #### [facility] [address] [place] [address] Dr. Alfredo Lizama Glucose [Mass/Vol] 97 mg/dL Normal 74-106 [facility] Comment on above: Performed By: #### U MICRO, ERUR #### [facility] [address] [place] [address] Dr. Alfredo Lizama Potassium [Moles/Vol] 3.7 mmol/L Normal 3.5-5.1 [facility] Comment on above: Performed By: #### U MICRO, ERUR #### [facility] [address] [place] [address] Dr. Alfredo Lizama Sodium [Moles/Vol] 140 mmol/L Normal 136-145 [facility] Comment on above: Performed By: #### U MICRO, ERUR #### [facility] [address] [place] [address] Dr. Alfredo Lizama Urea nitrogen [Mass/Vol] 7.0 mg/dL Normal 7.0-18.0 [facility] Comment on above: Performed By: #### U MICRO, ERUR #### [facility] [address] [place] [address] Dr. Alfredo Lizama Urea nitrogen/Creatinine [Mass ratio] 10.0 mg/mg Normal [facility] Comment on above: Performed By: #### U MICRO, ERUR #### [facility] [address] [place] [address] Dr. Alfredo Lizama URINE MICROSCOPIC ONLYon AMORPHOUS CRYSTALS FEW Normal [facility] Comment on above: Performed By: #### CHINMAY CHAVESRO #### [facility] [address] [place] [address] Dr. Alfredo Lizama BACTERIA LARGE Abnormal NONE SEEN [facility] Comment on above: Performed By: #### E SEAN UMICRO #### [facility] [address] [place] [address] Dr. Alfredo Lizama Bacteria identified Cx Nom (U) INDICATED Normal [facility] Comment on above: Performed By: #### Jacque ESTRADA UMICRO #### [facility] [address] [place] [address] Dr. Alfredo Lizama CAST NONE SEEN Normal NONE SEEN [facility] Comment on above: Performed By: #### Jacque ESTRADA UMICRO #### [facility] [address] [place] [address] Dr. Alfredo Lizama Crystals LM Nom (Urine sed) SEEN Abnormal NONE SEEN [facility] Comment on above: Performed By: #### Jacque ESTRADA UMICRO #### [facility] [address] [place] [address] Dr. Alfredo Lizama Epithelial cells LM Ql (Urine sed) RARE Normal NONE SEEN /RARE [facility] Comment on above: Performed By: #### Jacque ESTRADA UMICRO #### [facility] [address] [place] [address] Dr. Alfredo Lizama MUCOUS NONE SEEN Normal NONE SEEN [facility] Comment on above: Performed By: #### Jacque ESTRADA UMICRO #### [facility] [address] [place] [address] Dr. Alfredo Lizama RBC 2-5 Abnormal 0-2 [facility] Comment on above: Performed By: #### Jacque ESTRADA UMICRO #### [facility] [address] [place] [address] Dr. Alfredo Lizama TRIPLE PHOS CRYSTALS FEW Normal [facility] Comment on above: Performed By: #### Jacque ESTRADA UMICRO #### [facility] [address] [place] [address] Dr. Alfredo Lizama WBC 75-100 Abnormal NONE SEEN [facility] Comment on above: Performed By: #### Jacque ESTRADA UMICRO #### [facility] [address] [place] [address] Dr. Alfredo Lizama [facility] [place] [facility] (Inserted Image. Shelly ble to display) January 10, 2023 MORALES LEE [address] [place] [address] MORALES LEE 1975 Dear Morales, I am corresponding with you by certified mail because of repeat non compliance. You missed your catheter exchange appointment on 12/31/22. It is recommended your Alvares catheter be exchanged every 4 weeks to prevent encrustation and infection. Also you were referred to Dr Zhang at [facility] for further evaluation regarding your condition of [...] [facility] [address], [place] [address] Normal [facility] Lab Reportson 12-29-2022 Lab Reports [id number]#1.00CD:127 Normal [facility] Lab Reports [id number]#1.00CD:127 Normal [facility] Lab Reports [id number]#1.00CD:127 Normal [facility] CULTURE URINEon 12-25-2022 CULTURE URINE Isolate 1 [...] Trimethoprim/Sulfamethoxazo le <=20 S F Normal [facility] Comment on above: Performed By: #### U MICRO, ERUR #### [facility] [address] [place] [address] Dr. Alfredo Lizama Retail - Clinical Noteon Retail - Clinical Note [id number]#[id number]:127 Normal [facility] Patient Educationon 11-27-19 23 Patient [...] Reviewed: 10/01/2017 Elsevier Patient Education ? 2019 [employer]. [facility] Retail - Clinical Noteon Retail - Clinical Note [id number]:127 Normal [facility] Office/Clinic Noteon 11-26-2022 Urology Office/Clinic Note [...] with debris. Calcified catheter tip. New 18 Stateless two-way Alvares catheter inserted without difficulty. 15cc [...] understands and agrees with plan. -Refer to ID for possible SP catheter placement and/or bladder [...] as ab (more content not included)... Normal [facility] Comment on above: Result Comment: Elec tronically Signed By: Zachery HRAKINS, Danya Rhodes\.br\Date and Time Signed: 11/26/22 08:53 EDT\.br\Electronically Co-Signed By: Yari Barron\.br\Date and Time Co-Signed: 11/26/22 08:44 EDT ED Note-Physicianon 11-12-19 ED Note-Physician [id number]:127 Normal [facility] AMYLASEon 11-09-2022 Amylase [Catalytic activity/Vol] 14 U/L Critically low 25-115 [facility] Comment on above: Performed By: #### U MICRO, ERUR #### [facility] [address] [place] [address] Dr. Alfredo Lizama CBC AUTO DIFFon 11-09-2022 BASO # 0.1 103/ul Normal 0.0-0.1 [facility] Comment on above: Performed By: #### U MICRO, ERUR #### [facility] [address] [place] [address] Dr. Alfredo Lizama Basophils/100 WBC (Bld) 0.8 % Normal 0.2-2.0 [facility] Comment on above: Performed By: #### U MICRO, ERUR #### [facility] [address] [place] [address] Dr. Alfredo Lizama EO # 0.2 103/ul Normal 0.0-0.7 [facility] Comment on above: Performed By: #### U MICRO, ERUR #### [facility] [address] [place] [address] Dr. Alfredo Lizama Eosinophils/100 WBC (Bld) 2.5 % Normal 0.9-7.0 [facility] Comment on above: Performed By: #### U MICRO, ERUR #### [facility] [address] [place] [address] Dr. Alfredo Lizama Erythrocyte distribution width (RBC) [Ratio] 12.7 % Normal 11.0-15.0 [facility] Comment on above: Performed By: #### U MICRO, ERUR #### [facility] [address] [place] [address] Dr. Alfredo Lizama Hematocrit (Bld) [Volume fraction] 46.3 % Normal 36.0-48.0 [facility] Comment on above: Performed By: #### U MICRO, ERUR #### [facility] [address] [place] [address] Dr. Alfredo Lizama Hemoglobin (Bld) [Mass/Vol] 15.9 g/dL Normal 12.0-16.0 [facility] Comment on above: Performed By: #### U MICRO, ERUR #### [facility] [address] [place] [address] Dr. Alfredo Lizama IG # 0.02 10e3/ul Normal 0.00-0.03 [facility] Comment on above: Performed By: #### U MICRO, ERUR #### [facility] [address] [address] [address] Alfredo Lizama IG % 0.2 % Normal 0.0-0.5 [facility] Comment on above: Performed By: #### U MICRO, ERUR #### [facility] [address] [address] [address] Alfredo Lizama LYMPH # 2.6 103/ul Normal 1.2-3.8 [facility] Comment on above: Performed By: #### U MICRO, ERUR #### [facility] [address] [address] [address] Alfredo Lizama Lymphocytes/100 WBC (Bld) 31.3 % Normal 20.5-60.0 [facility] Comment on above: Performed By: #### U MICRO, ERUR #### [facility] [address] [place] [address] Dr. Alfredo Lizama MANUAL DIFF REQ NO Normal [facility] Comment on above: Performed By: #### U MICRO, ERUR #### [facility] [address] [place] [address] Dr. Alfredo Lizama MCH (RBC) [Entitic mass] 29.3 pg Normal 26.7-34.0 [facility] Comment on above: Performed By: #### U MICRO, ERUR #### [facility] [address] [place] [address] Dr. Alfredo Lizama MCHC (RBC) [Mass/Vol] 34.3 g/dL Normal 29.9-35.2 [facility] Comment on above: Performed By: #### U MICRO, ERUR #### [facility] [address] [address] [address] Alfredo Lizama MCV (RBC) [Entitic vol] 85.4 fL Normal 81.0-99.0 [facility] Comment on above: Performed By: #### U MICRO, ERUR #### [facility] [address] [address] [address] Alfredo Lizama MONO # 0.6 103/ul Normal 0.3-0.8 [facility] Comment on above: Performed By: #### U MICRO, ERUR #### [facility] [address] [address] [address] Alfredo Lizama Monocytes/100 WBC (Bld) 6.6 % Normal 1.7-12.0 [facility] Comment on above: Performed By: #### U MICRO, ERUR #### [facility] [address] [place] [address] Dr. Alfredo Lizama NEUT # 4.9 103/ul Normal 1.4-6.5 [facility] Comment on above: Performed By: #### U MICRO, ERUR #### [facility] [address] [place] [address] Dr. Alfredo Lizama Neutrophils/100 WBC (Bld) 58.6 % Normal 43.0-75.0 [facility] Comment on above: Performed By: #### U MICRO, ERUR #### [facility] [address] [place] [address] Dr. Alfredo Lizama Platelet mean volume (Bld) [Entitic vol] 9.5 fL Normal 9.5-13.5 [facility] Comment on above: Performed By: #### U MICRO, ERUR #### [facility] [address] [place] [address] Dr. Alfredo Lizama PLT 273 103/ul Normal 150-450 [facility] Comment on above: Performed By: #### U MICRO, ERUR #### [facility] [address] [place] [address] Dr. Alfredo Lizama RBC 5.42 106/ul Critically high 4.20-5.40 [facility] Comment on above: Performed By: #### U MICRO, ERUR #### [facility] [address] [place] [address] Dr. Alfredo Lizama WBC 8.4 103/ul Normal 4.0-11.0 [facility] Comment on above: Performed By: #### U MICRO, ERUR #### [facility] [address] [place] [address] Dr. Alfredo Lizama CULTURE URINEon 11-09-2022 CULTURE URINE Culture Observations : MODERATE GROWTH OF MIXED GENITAL ROSANNA. NO POTENTIAL PATHOGENS SEEN. Normal [facility] Comment on above: Performed By: #### U MICRO, ERUR #### [facility] [address] [address] [address] Alfredo SANDY URINE PROFILEon 3 Bilirubin Ql (U) Negative Normal NEGATIVE [facility] Comment on above: Performed By: #### U MICRO, ERUR #### [facility] [address] [address] [address] Alfredo Lizama Clarity (U) CLEAR Normal CLEAR [facility] Comment on above: Performed By: #### U MICRO, ERUR #### [facility] [address] [address] [address] Alfredo Lizama Color (U) LT. YELLOW Normal YELLOW [facility] Comment on above: Performed By: #### U MICRO, ERUR #### [facility] [address] [place] [address] Dr. Alfredo Lizama ERUAHD A micrscopic examina tion will be performed if indicated. Normal [facility] Comment on above: Performed By: #### U MICRO, ERUR #### [facility] [address] [place] [address] Dr. Alfredo Lizama Glucose Ql (U) Negative Normal NEGATIVE [facility] Comment on above: Performed By: #### U MICRO, ERUR #### [facility] [address] [address] [address] Alfredo Lizama Hemoglobin Ql (U) MODERATE Abnormal NEGATIVE [facility] Comment on above: Performed By: #### U MICRO, ERUR #### [facility] [address] [address] [address] Alfredo Lizama Ketones Ql (U) Negative Normal NEGATIVE [facility] Comment on above: Performed By: #### U MICRO, ERUR #### [facility] [address] [address] [address] Alfredo Lizama LEUKOCYTES LARGE Abnormal NEGATIVE [facility] Comment on above: Performed By: #### U MICRO, ERUR #### [facility] [address] [address] [address] Alfredo Lizama Nitrite Ql (U) Negative Normal NEGATIVE [facility] Comment on above: Performed By: #### U MICRO, ERUR #### [facility] [address] [place] [address] Dr. Alfredo Lizama pH (U) 7.0 [pH] Normal 5-9 [facility] Comment on above: Performed By: #### U MICRO, ERUR #### [facility] [address] [place] [address] Dr. Alfredo Lizama SPEC GRAVITY 1.015 Normal 1.005-<=1.0 25 [facility] Comment on above: Performed By: #### U MICRO, ERUR #### [facility] [address] [place] [address] Dr. Alfredo Lizama UA PROTEIN Negative Normal NEGATIVE/ TRACE [facility] Comment on above: Performed By: #### U MICRO, ERUR #### [facility] [address] [place] [address] Dr. Alfredo Lizama UR MICRO IND INDICATED Normal [facility] Comment on above: Performed By: #### U MICRO, ERUR #### [facility] [address] [place] [address] Dr. Alfredo Lizama Urobilinogen Qn (U) 0.2 {Tesha'U}/dL Normal 0.2 - 1. 0 [facility] Comment on above: Performed By: #### U MICRO, ERUR #### [facility] [address] [place] [address] Dr. Alfredo Lizama LIPASEon 11-09-2022 Lipase [Catalytic activity/Vol] 34.0 U/L Critically low 73.0-393.0 [facility] Comment on above: Performed By: #### U MICRO, ERUR #### [facility] [address] [place] [address] Dr. Alfredo Lizama PROF 14(COMP METB)on 023 Albumin [Mass/Vol] 4.0 g/dL Normal 3.4-5.0 [facility] Comment on above: Performed By: #### U MICRO, ERUR #### [facility] [address] [place] [address] Dr. Alfredo Lizama Albumin/Globulin [Mass ratio] 1.0 {ratio} Normal [facility] Comment on above: Performed By: #### U MICRO, ERUR #### [facility] [address] [address] [address] Alfredo Lizama ALP [Catalytic activity/Vol] 206 U/L Critically high 46-116 [facility] Comment on above: Performed By: #### U MICRO, ERUR #### [facility] [address] [address] [address] Alfredo Lizama ALT [Catalytic activity/Vol] 53 U/L Normal 14-59 [facility] Comment on above: Performed By: #### U MICRO, ERUR #### [facility] [address] [place] [address] Dr. Alfredo Lizama Anion gap [Moles/Vol] 14.5 mmol/L Normal [facility] Comment on above: Performed By: #### U MICRO, ERUR #### [facility] [address] [place] [address] Dr. Alfredo Lizama AST [Catalytic activity/Vol] 55 U/L Critically high 15-37 [facility] Comment on above: Performed By: #### U MICRO, ERUR #### [facility] [address] [place] [address] Dr. Alfredo Lizama Bilirubin [Mass/Vol] 0.7 mg/dL Normal 0.2-1.0 [facility] Comment on above: Performed By: #### U MICRO, ERUR #### [facility] [address] [place] [address] Dr. Alfredo Lizama Calcium [Mass/Vol] 9.0 mg/dL Normal 8.5-10.1 [facility] Comment on above: Performed By: #### U MICRO, ERUR #### [facility] [address] [place] [address] Dr. Alfredo Lizama Chloride [Moles/Vol] 100 mmol/L Normal 98-107 [facility] Comment on above: Performed By: #### U MICRO, ERUR #### [facility] [address] [place] [address] Dr. Alfredo Lizama CO2 [Moles/Vol] 28.3 mmol/L Normal 21.0-32.0 [facility] Comment on above: Performed By: #### U MICRO, ERUR #### [facility] [address] [address] [address] Alfredo Lizama Creatinine [Mass/Vol] 0.65 mg/dL Normal 0.55-1.02 [facility] Comment on above: Performed By: #### U MICRO, ERUR #### [facility] [address] [place] [address] Dr. Alfredo Lizama EGFR-AF BOLIVIAN >60 Normal >=60 [facility] Comment on above: Performed By: #### U MICRO, ERUR #### [facility] [address] [place] [address] Dr. Alfredo Lizama EGFR-NON AF BOLIVIAN >60 Normal >=60 [facility] Comment on above: Performed By: #### U MICRO, ERUR #### [facility] [address] [address] [address] Alfredo Lizama Globulin (S) [Mass/Vol] 3.9 g/dL Normal [facility] Comment on above: Performed By: #### U MICRO, ERUR #### [facility] [address] [address] [address] Alfredo Lizama Glucose [Mass/Vol] 134 mg/dL Critically high 74-106 [facility] Comment on above: Performed By: #### U MICRO, ERUR #### [facility] [address] [address] [address] Alfredo Lizama Potassium [Moles/Vol] 3.8 mmol/L Normal 3.5-5.1 [facility] Comment on above: Performed By: #### U MICRO, ERUR #### [facility] [address] [address] [address] Alfredo Lizama Protein [Mass/Vol] 7.9 g/dL Normal 6.4-8.2 [facility] Comment on above: Performed By: #### U MICRO, ERUR #### [facility] [address] [address] [address] Alfredo Lizama Sodium [Moles/Vol] 139 mmol/L Normal 136-145 [facility] Comment on above: Performed By: #### U MICRO, ERUR #### [facility] [address] [address] [address] Alfredo Lizama Urea nitrogen [Mass/Vol] 7.0 mg/dL Normal 7.0-18.0 [facility] Comment on above: Performed By: #### U MICRO, ERUR #### [facility] [address] [place] [address] Dr. Alfredo Lizama Urea nitrogen/Creatinine [Mass ratio] 10.7 mg/mg Normal [facility] Comment on above: Performed By: #### U MICRO, ERUR #### [facility] [address] [place] [address] Dr. Alfredo Lizama URINE MICROSCOPIC ONLYon BACTERIA TRACE Abnormal NONE SEEN [facility] Comment on above: Performed By: #### U MICRO, ERUR #### [facility] [address] [place] [address] Dr. Alfredo Lizama Bacteria identified Cx Nom (U) INDICATED Normal [facility] Comment on above: Performed By: #### U MICRO, ERUR #### [facility] [address] [place] [address] Dr. Alfredo Lizama CAST NONE SEEN Normal NONE SEEN [facility] Comment on above: Performed By: #### U MICRO, ERUR #### [facility] [address] [place] [address] Dr. Alfredo Lizama Crystals LM Nom (Urine sed) NONE SEEN Normal NONE SEEN [facility] Comment on above: Performed By: #### U MICRO, ERUR #### [facility] [address] [address] [address] Alfredo Lizama Epithelial cells LM Ql (Urine sed) FEW Abnormal NONE SEEN /RARE [facility] Comment on above: Performed By: #### U MICRO, ERUR #### [facility] [address] [place] [address] Dr. Alfredo Lizama MUCOUS NONE SEEN Normal NONE SEEN [facility] Comment on above: Performed By: #### U MICRO, ERUR #### [facility] [address] [place], [place] [address] Dr. Alfredo Lizama RBC 20-50 Abnormal 0-2 [facility] Comment on above: Performed By: #### U MICRO, ERUR #### [facility] [address] [place], [place] [address] Dr. Alfredo Lizama WBC 20-50 Abnormal NONE SEEN [facility] Comment on above: Performed By: #### U MICRO, ERUR #### [facility] [address] [address] [address] Alfredo Lizama XR ABD FLAT_UPon 11-09-2022 [...] by: ENRIQUE LOWE Date: 2022-11-09 11:06 Normal [facility] ED Note-Physicianon 11-06-19 ED Note-Physician [id number]:127 Normal [facility] Lab Reportson 11-05-2022 Lab Reports [id number]:127 Normal [facility] CULTURE URINEon 10-18-2022 CULTURE URINE Isolate 1 [...] F Trimethoprim/Sulfamethoxazo le <=10 S F Normal [facility] Comment on above: Performed By: #### AUTUMN BREWER #### [facility] [address] [place] [address] Dr. Alfredo Lizama Retail - Clinical Noteon Retail - Clinical Note [id number]:127 Normal [facility] ER URINE PROFILEon 3 Bilirubin Ql (U) Negative Normal NEGATIVE [facility] Comment on above: Performed By: #### LINDA CHAVES #### [facility] [address] [place] [address] Dr. Alfredo Lizama Clarity (U) CLEAR Normal CLEAR [facility] Comment on above: Performed By: #### CHINMAY CHAVESRO #### [facility] [address] [place] [address] Dr. Alfredo Lizama Color (U) YELLOW Normal YELLOW [facility] Comment on above: Performed By: #### CHINMAY CHAVESRO #### [facility] [address] [place] [address] Dr. Alfredo RAYMUNDO A micrscopic examina tion will be performed if indicated. Normal [facility] Comment on above: Performed By: #### FER CHAVESICRO #### [facility] [address] [place] [address] Dr. Alfredo Lizama Glucose Ql (U) Negative Normal NEGATIVE [facility] Comment on above: Performed By: #### Jacque ESTRADA UMICRO #### [facility] [address] [place] [address] Dr. Alfredo Lizama Hemoglobin Ql (U) LARGE Abnormal NEGATIVE [facility] Comment on above: Performed By: #### Jacque ESTRADA UMICRO #### [facility] [address] [place] [address] Dr. Alfredo Lizama Ketones Ql (U) Negative Normal NEGATIVE [facility] Comment on above: Performed By: #### Jacque ESTRADA UMICRO #### [facility] [address] [place] [address] Dr. Alfredo Lizama LEUKOCYTES LARGE Abnormal NEGATIVE [facility] Comment on above: Performed By: #### Jacque ESTRADA UMICRO #### [facility] [address] [place] [address] Dr. Alfredo Lizama Nitrite Ql (U) Positive Abnormal NEGATIVE [facility] Comment on above: Performed By: #### Jacque ESTRADA UMICRO #### [facility] [address] [place] [address] Dr. Alfredo Lizama pH (U) 6.5 [pH] Normal 5-9 [facility] Comment on above: Performed By: #### Jacque ESTRADA UMICRO #### [facility] [address] [place] [address] Dr. Alfredo Lizama Protein (U) [Mass/Vol] 100 mg/dL Abnormal NEGATIVE/ TRACE [facility] Comment on above: Performed By: #### Jacque ESTRADA UMICRO #### [facility] [address] [place] [address] Dr. Alfredo Lizama SPEC GRAVITY 1.010 Normal 1.005-<=1.0 25 [facility] Comment on above: Performed By: #### FER CHAVESICRO #### [facility] [address] [place] [address] Dr. Alfredo Lizama UR MICRO IND INDICATED Normal [facility] Comment on above: Performed By: #### Jacque ESTRADA UMICRO #### [facility] [address] [place] [address] Dr. Alfredo Lizama Urobilinogen Qn (U) 1.0 {Tesha'U}/dL Normal 0.2 - 1. 0 [facility] Comment on above: Performed By: #### E RURLINDA #### [facility] [address] [place] [address] Dr. Alfredo Lizama URINE MICROSCOPIC ONLYon BACTERIA MODERATE Abnormal NONE SEEN [facility] Comment on above: Performed By: #### U MICRO, ERUR #### [facility] [address] [place] [address] Dr. Alfredo Lizama Bacteria identified Cx Nom (U) INDICATED Normal [facility] Comment on above: Performed By: #### U MICRO, ERUR #### [facility] [address] [place] [address] Dr. Alfredo Lizama CA OX CRYSTALS RARE Normal [facility] Comment on above: Performed By: #### U MICRO, ERUR #### [facility] [address] [place] [address] Dr. Alfredo Lizama CAST NONE SEEN Normal NONE SEEN [facility] Comment on above: Performed By: #### U MICRO, ERUR #### [facility] [address] [place] [address] Dr. Alfredo Lizama Crystals LM Nom (Urine sed) SEEN Abnormal NONE SEEN [facility] Comment on above: Performed By: #### U MICRO, ERUR #### [facility] [address] [place] [address] Dr. Alfredo Lizama Epithelial cells LM Ql (Urine sed) MODERATE Abnormal NONE SEEN /RARE [facility] Comment on above: Performed By: #### U MICRO, ERUR #### [facility] [address] [place] [address] Dr. Alfredo Lizama MUCOUS TRACE Abnormal NONE SEEN [facility] Comment on above: Performed By: #### U MICRO, ERUR #### [facility] [address] [place] [address] Dr. Alfredo Lizama RBC 20-50 Abnormal 0-2 [facility] Comment on above: Performed By: #### U MICRO, ERUR #### [facility] [address] [place], [place] [address] Dr. Alfredo Lizama WBC 50-75 Abnormal NONE SEEN [facility] Comment on above: Performed By: #### U MICRO, ERUR #### [facility] [address] [place], [place] [address] Dr. Alfredo Lizama Patient Educationon 09-23-19 Patient [...] including vitamins, herbs, eye drops, creams, and hklo-pfz-dgdpfug medicines. ? Any problems you or family [...] tells you to take them. ? Taking pswd-cdh-vhbcgyn medicines, vitamins, herbs, and supplements. General instructions [...] What happens (more content not included)... Normal [facility] Provider Letteron 09-09-2022 Provider Letter (Inserted Image. Shelly ble to display) September 09, 2022 MORALES LEE [address] [place] [address] MORALES LEE 1975 Dear Morales Lee , We have been trying to reach you with no success. It is important that you return our call upon receiving this letter. Also, at the time of your call, please provide us with your current information. Thank you for your prompt attention to this matter. Sincerely, [facility] [address] [place] [address] [facility] Operative Reporton Operative Report [id number]:127 [facility] Lab Reportson 08-26-2022 Lab Reports [id number]:127 [facility] Covid-19 PCR (CVDTB)on 08-06 SARS-CoV-2 (COVID-19) RNA ADRIÁN+probe Ql (Unsp spec) Not detected Normal NOT DETECTED [facility] Comment on above: Result Comment: When diagnostic [...] for this test is supported by the [employer] Att[employer] of Health and Human Service's declaration that [...] Performed By: #### U MICRO, ERUR #### [facility] [address] [place] [address] Dr. Alfredo Lizama CBC AUTO DIFFon 08-24-2022 BASO # 0.1 103/ul Normal 0.0-0.1 [facility] Comment on above: Performed By: #### C BC #### [facility] [address] [place] [address] Dr. Alfredo Lizama Basophils/100 WBC (Bld) 0.8 % Normal 0.2-2.0 [facility] Comment on above: Performed By: #### C BC #### [facility] [address] [place] [address] Dr. Alfredo Lizama EO # 0.3 103/ul Normal 0.0-0.7 [facility] Comment on above: Performed By: #### C BC #### [facility] [address] [place] [address] Dr. Alfredo Lizama Eosinophils/100 WBC (Bld) 3.1 % Normal 0.9-7.0 [facility] Comment on above: Performed By: #### C BC #### [facility] [address] [place] [address] Dr. Alfredo Lizama Erythrocyte distribution width (RBC) [Ratio] 13.4 % Normal 11.0-15.0 [facility] Comment on above: Performed By: #### C BC #### [facility] [address] [place] [address] Dr. Alfredo Lizama Hematocrit (Bld) [Volume fraction] 47.2 % Normal 36.0-48.0 [facility] Comment on above: Performed By: #### C BC #### [facility] [address] [place] [address] Dr. Alfredo Lizama Hemoglobin (Bld) [Mass/Vol] 15.6 g/dL Normal 12.0-16.0 [facility] Comment on above: Performed By: #### C BC #### [facility] [address] [place] [address] Dr. Alfredo Lizama IG # 0.02 10e3/ul Normal 0.00-0.03 [facility] Comment on above: Performed By: #### C BC #### [facility] [address] [place] [address] Dr. Alfredo Lizama IG % 0.2 % Normal 0.0-0.5 [facility] Comment on above: Performed By: #### C BC #### [facility] [address] [place] [address] Dr. Alfredo Lizama LYMPH # 4.4 103/ul Critically high 1.2-3.8 [facility] Comment on above: Performed By: #### C BC #### [facility] [address] [place] [address] Dr. Alfreod Lizama Lymphocytes/100 WBC (Bld) 42.3 % Normal 20.5-60.0 [facility] Comment on above: Performed By: #### C BC #### [facility] [address] [place] [address] Dr. Alfredo Lizama MANUAL DIFF REQ NO Normal [facility] Comment on above: Performed By: #### C BC #### [facility] [address] [place] [address] Dr. Alfredo Lizama MCH (RBC) [Entitic mass] 28.8 pg Normal 26.7-34.0 [facility] Comment on above: Performed By: #### C BC #### [facility] [address] [place] [address] Dr. Alfredo Lizama MCHC (RBC) [Mass/Vol] 33.1 g/dL Normal 29.9-35.2 [facility] Comment on above: Performed By: #### C BC #### [facility] [address] [place], [place] [id number] Dr. Alfredo Lizama MCV (RBC) [Entitic vol] 87.2 fL Normal 81.0-99.0 [facility] Comment on above: Performed By: #### C BC #### [facility] [address] [place] [address] Dr. Alfredo Lizama MONO # 0.6 103/ul Normal 0.3-0.8 [facility] Comment on above: Performed By: #### C BC #### [facility] [address] [place] [address] Dr. Alfredo Lizama Monocytes/100 WBC (Bld) 5.3 % Normal 1.7-12.0 [facility] Comment on above: Performed By: #### C BC #### [facility] [address] [place] [address] Dr. Alfredo Lizama NEUT # 5.0 103/ul Normal 1.4-6.5 [facility] Comment on above: Performed By: #### C BC #### [facility] [address] [place] [address] Dr. Alfredo Lizama Neutrophils/100 WBC (Bld) 48.3 % Normal 43.0-75.0 [facility] Comment on above: Performed By: #### C BC #### [facility] [address] [place] [address] Dr. Alfredo Lizama Platelet mean volume (Bld) [Entitic vol] 9.9 fL Normal 9.5-13.5 [facility] Comment on above: Performed By: #### C BC #### [facility] [address] [place] [address] Dr. Alfredo Lizama PLT 298 103/ul Normal 150-450 [facility] Comment on above: Performed By: #### C BC #### [facility] [address] [place] [address] Dr. Alfredo Lizama RBC 5.41 106/ul Critically high 4.20-5.40 [facility] Comment on above: Performed By: #### C BC #### [facility] [address] [place] [address] Dr. Alfredo Lizama WBC 10.3 103/ul Normal 4.0-11.0 [facility] Comment on above: Performed By: #### C BC #### [facility] [address] [place] [address] Dr. Alfredo Lizama PROF CHEM 8 (BAS METB)on Anion gap [Moles/Vol] 14.3 mmol/L Normal [facility] Comment on above: Performed By: #### U MICRO, ERUR #### [facility] [address] [place] [address] Dr. Alfredo Lizama Calcium [Mass/Vol] 9.1 mg/dL Normal 8.5-10.1 [facility] Comment on above: Performed By: #### U MICRO, ERUR #### [facility] [address] [place] [address] Dr. Alfredo Lizama Chloride [Moles/Vol] 99 mmol/L Normal 98-107 [facility] Comment on above: Performed By: #### U MICRO, ERUR #### [facility] [address] [place] [address] Dr. Alfredo Lizama CO2 [Moles/Vol] 29.0 mmol/L Normal 21.0-32.0 [facility] Comment on above: Performed By: #### U MICRO, ERUR #### [facility] [address] [place] [address] Dr. Alfredo Lizama Creatinine [Mass/Vol] 0.70 mg/dL Normal 0.55-1.02 [facility] Comment on above: Performed By: #### U MICRO, ERUR #### [facility] [address] [place] [address] Dr. Alfredo Lizama EGFR-AF BOLIVIAN >60 Normal >=60 [facility] Comment on above: Performed By: #### U MICRO, ERUR #### [facility] [address] [place] [address] Dr. Alfredo Lizama EGFR-NON AF BOLIVIAN >60 Normal >=60 [facility] Comment on above: Performed By: #### U MICRO, ERUR #### [facility] [address] [place] [address] Dr. Alfredo Lizama Glucose [Mass/Vol] 121 mg/dL Critically high 74-106 [facility] Comment on above: Performed By: #### U MICRO, ERUR #### [facility] [address] [address] [address] Alfredo Lizama Potassium [Moles/Vol] 3.3 mmol/L Critically low 3.5-5.1 [facility] Comment on above: Performed By: #### U MICRO, ERUR #### [facility] [address] [address] [address] Alfredo Lizama Sodium [Moles/Vol] 139 mmol/L Normal 136-145 [facility] Comment on above: Performed By: #### U MICRO, ERUR #### [facility] [address] [place] [address] Dr. Alfredo Lizama Urea nitrogen [Mass/Vol] 5.0 mg/dL Critically low 7.0-18.0 [facility] Comment on above: Performed By: #### U MICRO, ERUR #### [facility] [address] [place] [address] Dr. Alfredo Lizama Urea nitrogen/Creatinine [Mass ratio] 7.1 mg/mg Normal [facility] Comment on above: Performed By: #### U MICRO, ERUR #### [facility] [address] [place] [address] Dr. Alfredo Lizama PROTIMEon 08-24-2022 INR Coag (PPP) [Relative time] 0.99 {INR} Normal [facility] Comment on above: Performed By: #### P T, PTT #### [facility] [address] [place] [address] Dr. Alfredo Lizama INR GUIDELINES SEE BELOW Normal [facility] Comment on above: Result Comment: MARY JO RED INR: 2.0 - 3.0 CONDITIONS NOT LISTED BELOW 2.5 - 3.5 FOR PROSTHETIC HEART VALVE REPLACEMENT 2.5 - 3.5 RECURRENT THROMBOSIS Performed By: #### P T, PTT #### [facility] [address] [place] [address] Dr. Alfredo Lizama PT Coag (PPP) [Time] 10.7 s Normal 9.0-11.6 [facility] Comment on above: Performed By: #### P T, PTT #### [facility] [id number] Alfredo Lizama PTTon 08-24-2022 aPTT Coag (Bld) [Time] 31.7 s Normal 22.3-36.2 [facility] Comment on above: Performed By: #### P T, PTT #### [facility] [id number] Alfredo Lizama Physician Orderon 08-24-2022 Physician Order [id number]#1.00CD:127 Normal [facility] - Clinical Noteon Retail - Clinical Note [id number]#1.00CD:127 Normal [facility] Patient Educationon 07-16-20 Patient Education Urology Urinary [...] stimulation). ? For women, using a medical artist to prevent urine leaks. This is a [...] after experiencing incontinence. General instructions ? Take fjdf-smj-fytjcgu and prescription medicines only as (more content not included)... Normal [facility] Pre-Certification Formon Pre-Certification Form [id number]#1.00CD:127 Normal [facility] Urology Office/Clinic Noteon 07-16-2022 Urology Office/Clinic Note [...] of temp indwelling bladder cath (alvares) simple 72282 2. 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 Normal [facility] Comment on above: Result Comment: Elec tronically Signed By: Danya Bingham MD\.br\Date and Time Signed: 07/16/22 13:13 EST\.br\Electronically Co-Signed By: Yari Barron\.br\Date and Time Co-Signed: 07/16/22 12:16 EST Reminderson 07-06-2022 Reminders - From: Sandra Kessler To: EU - Recallnedra Bingham; Sandra Kessler; Sent: 03/26/2022 11:47:40 EDT Show up: 04/16/2022 11:47:00 EDT Subject: 4 week cath change Reminder/Recall schedule 4 week cath change at [facility]. alvares cath was changed at [facility] ER on 03/30/22, pt will be [...] catheter changes need to be done at [facility] because she needs lift/assistance. will schedule this faxed order/form to [facility] to be scheduled week of 05/10/22 per Jose at [facility] they have tried calling patient to schedule, no response. I tried calling patient today, no answer, unable to leave VM- phone just kept ringing. Patient had her catheter changed at [facility] on 05/07/22, due in 4 weeks unless s/p tube gets placed before then Order faxed to [facility] for patients cath change to be scheduled at [facility]. will track. From: Sandra Kessler To: EU - Vijay Bingham; Sent: 06/08/2022 08:26:14 EDT Show up: 06/08/2022 08:26:00 EDT Subject: RE: 4 week cath change other message in patient has upcoming appt 07-16-[address] Bingham, she still has not scheduled her cath change Normal [facility] Formson 06-08-2022 Forms [id number]#1.00CD:127 Normal [facility] Physician Orderon 06-08-2022 Physician Order [id number]#1.00CD:127 Normal [facility] BN SACRUM/COCCYX, MIN 2 VIEW Son 06-07-2022 [...] 09/20/2019. Thoracolumbar spine radiographs 09/08/2021. ACCESSION NUMBER(S): [id number]; [id number]; [id number] ORDERING CLINICIAN: CANDICE PEREZ FINDINGS: Three views [...] Electronically signed by: GOMEZ JAMA MD Normal [facility] BN SPINE, LUMBOSACRAL; 2 OR 3 VIEWSon [...] 09/20/2019. Thoracolumbar spine radiographs 09/08/2021. ACCESSION NUMBER(S): [id number]; [id number]; [id number] ORDERING CLINICIAN: CANDICE PEREZ FINDINGS: Three views [...] Electronically signed by: GOMEZ JAMA MD Normal [facility] BN SPINE, THORACIC, 3 VIEWSo n 06-07-2022 [...] 09/20/2019. Thoracolumbar spine radiographs 09/08/2021. ACCESSION NUMBER(S): [id number]; [id number]; [id number] ORDERING CLINICIAN: CANDICE PEREZ FINDINGS: Three views [...] Electronically signed by: GOMEZ JAMA MD Normal [facility] CBC AND DIFFERENTIALon 06-07 % AUTOMATED IMMATURE GRAN 0.2 % Normal 0.0 - 0.9 [facility] Comment on above: Result Comment: Jaleesa ture Granulocyte Count (IG) includes promyelocytes, myelocytes and metamyelocytes but does not include bands. Percent differential counts (%) should be interpreted in the context of the absolute cell counts (cells/L). Performed By: #### R ENAL #### [facility] [address] [place] [address] Basophils (Bld) [#/Vol] 0.09 10*3/uL Normal 0.00 - 0.10 [facility] Comment on above: Performed By: #### R ENAL #### [facility] [address] [place] [address] Basophils/100 WBC (Bld) 1.0 % Normal 0.0 - 2.0 [facility] Comment on above: Performed By: #### R ENAL #### [facility] [address] [place] [address] Eosinophils (Bld) [#/Vol] 0.24 10*3/uL Normal 0.00 - 0.70 [facility] Comment on above: Performed By: #### R ENAL #### [facility] [address] [place] [address] Eosinophils/100 WBC (Bld) 2.6 % Normal 0.0 - 6.0 [facility] Comment on above: Performed By: #### R ENAL #### [facility] [address] [place] [address] Erythrocyte distribution width (RBC) [Ratio] 12.9 % Normal 11.5 - 14.5 [facility] Comment on above: Performed By: #### R ENAL #### [facility] [address] [place] [address] Hematocrit (Bld) [Volume fraction] 48.4 % High 36.0 - 46.0 [facility] Comment on above: Performed By: #### R ENAL #### [facility] [address] [place] [address] Hemoglobin (Bld) [Mass/Vol] 17.1 g/dL High 12.0 - 16.0 [facility] Comment on above: Performed By: #### R ENAL #### [facility] [address] [place] [address] Lymphocytes (Bld) [#/Vol] 2.93 10*3/uL Normal 1.20 - 4.80 [facility] Comment on above: Performed By: #### R ENAL #### [facility] [address] [place] [address] Lymphocytes/100 WBC (Bld) 31.9 % Normal 13.0 - 44.0 [facility] Comment on above: Performed By: #### R ENAL #### [facility] [address] [place] [address] MCHC (RBC) [Mass/Vol] 35.3 g/dL Normal 32.0 - 36.0 [facility] Comment on above: Performed By: #### R ENAL #### [facility] [address] [place] [address] MCV (RBC) [Entitic vol] 85 fL Normal 80 - 100 [facility] Comment on above: Performed By: #### R ENAL #### [facility] [address] [place] [address] Monocytes (Bld) [#/Vol] 0.36 10*3/uL Normal 0.10 - 1.00 [facility] Comment on above: Performed By: #### R ENAL #### [facility] [address] [place] [address] Monocytes/100 WBC (Bld) 3.9 % Normal 2.0 - 10.0 [facility] Comment on above: Performed By: #### R ENAL #### [facility] [address] [place] [address] Neutrophils (Bld) [#/Vol] 5.54 10*3/uL Normal 1.20 - 7.70 [facility] Comment on above: Performed By: #### R ENAL #### [facility] [address] [place] [address] Neutrophils/100 WBC (Bld) 60.4 % Normal 40.0 - 80.0 [facility] Comment on above: Performed By: #### R ENAL #### [facility] [address] [place] [address] NUCLEATED RBC 0.0 /100 WBC Normal 0.0-0.0 [facility] Comment on above: Performed By: #### R ENAL #### [facility] [address] [place] [address] Platelets (Bld) [#/Vol] 365 10*3/uL Normal 150 - 450 [facility] Comment on above: Performed By: #### R ENAL #### [facility] [address] [place] [address] RBC 5.69 x10E12/L High 4.00 - 5.20 [facility] Comment on above: Performed By: #### R ENAL #### [facility] [address] [place] [address] WBC (Bld) [#/Vol] 9.2 10*3/uL Normal 4.4 - 11.3 [facility] Comment on above: Performed By: #### R ENAL #### [facility] [address] [place] [address] COMPREHENSIVE PANELon 2021 Albumin [Mass/Vol] 4.6 g/dL Normal 3.4 - 5.0 [facility] Comment on above: Performed By: #### R ENAL #### [facility] [address] [place] [address] ALP [Catalytic activity/Vol] 192 U/L High 33 - 110 [facility] Comment on above: Performed By: #### R ENAL #### [facility] [address] [place] [address] ALT [Catalytic activity/Vol] 33 U/L Normal 7 - 45 [facility] Comment on above: Result Comment: Melly ents treated with Sulfasalazine may generate falsely decreased results for ALT. Performed By: #### R ENAL #### [facility] [address] [place] [address] Anion gap [Moles/Vol] 16 mmol/L Normal 10 - 20 [facility] Comment on above: Performed By: #### R ENAL #### [facility] [address] [place] [address] AST [Catalytic activity/Vol] 51 U/L High 9 - 39 [facility] Comment on above: Performed By: #### R ENAL #### [facility] [address] [place] [address] Bilirubin [Mass/Vol] 0.5 mg/dL Normal 0.0 - 1.2 [facility] Comment on above: Performed By: #### R ENAL #### [facility] [address] [place] [address] Calcium [Mass/Vol] 10.3 mg/dL Normal 8.6 - 10.6 [facility] Comment on above: Performed By: #### R ENAL #### [facility] [address] [place] [address] Chloride [Moles/Vol] 101 mmol/L Normal 98 - 107 [facility] Comment on above: Performed By: #### R ENAL #### [facility] [address] [place] [address] Creatinine [Mass/Vol] 0.61 mg/dL Normal 0.50 - 1.05 [facility] Comment on above: Performed By: #### R ENAL #### [facility] [address] [place] [address] eGFR FEMALE >90 Normal >90 [facility] Comment on above: Result Comment: CALC ULATIONS OF ESTIMATED GFR ARE PERFORMED USING THE 2020 CKD-EPI STUDY REFIT EQUATION WITHOUT THE RACE VARIABLE FOR THE IDMS-TRACEABLE CREATININE METHODS. https://jasn.asnjournals.org/content/early//ASN.4834936 988 Performed By: #### R ENAL #### [facility] [address] [place] [address] Glucose [Mass/Vol] 100 mg/dL High 74 - 99 [facility] Comment on above: Performed By: #### R ENAL #### [facility] [address] [place] [address] HCO3 (Bld) [Moles/Vol] 27 mmol/L Normal 21 - 32 [facility] Comment on above: Performed By: #### R ENAL #### [facility] [address] [place] [address] Potassium [Moles/Vol] 3.8 mmol/L Normal 3.5 - 5.3 [facility] Comment on above: Performed By: #### R ENAL #### [facility] [address] [place] [address] Protein [Mass/Vol] 8.2 g/dL Normal 6.4 - 8.2 [facility] Comment on above: Performed By: #### R ENAL #### [facility] [address] [place] [address] Sodium [Moles/Vol] 140 mmol/L Normal 136 - 145 [facility] Comment on above: Performed By: #### R ENAL #### [facility] [address] [place] [address] Urea nitrogen [Mass/Vol] 5 mg/dL Low 6 - 23 [facility] Comment on above: Performed By: #### R ENAL #### [facility] [address] [place] [address] Consult - Neuro-Surgeryon Consult - Neuro-Surgery Service: [...] Updated: 07-Jun-2022 11:22 by Perez Carlisle) Normal [facility] NR CT L-SPINE WO CONTRASTon 06-07-[address] L-SPINE WO CONTRAST Patient Name: MORALES LEE STUDY: CT T-SPINE WO CONTRAST; CT L-SPINE WO CONTRAST 06/06/2022 11:03 pm INDICATION: ok, Lie Flat: Yes COMPARISON: 09/20/2021 MRI and 09/18/2021 CT ACCESSION NUMBER(S): [id number]; [id number] ORDERING CLINICIAN: CANDICE PEREZ TECHNIQUE: Axial CT [...] osseous spinal canal or neural foraminal stenosis. Vehx-ue-grfyvkze spinal canal and neural foraminal narrowing described [...] Electronically signed by: CELI MCNEIL, DO Normal [facility] NR CT T-SPINE WO CONTRASTon 06-07-[address] T-SPINE WO CONTRAST Patient Name: MORALES LEE STUDY: CT T-SPINE WO CONTRAST; CT L-SPINE WO CONTRAST 06/06/2022 11:03 pm INDICATION: ok, Lie Flat: Yes COMPARISON: 09/20/2021 MRI and 09/18/2021 CT ACCESSION NUMBER(S): [id number]; [id number] ORDERING CLINICIAN: CANDICE PEREZ TECHNIQUE: Axial CT [...] osseous spinal canal or neural foraminal stenosis. Sznh-lt-rksadlhs spinal canal and neural foraminal narrowing described [...] view. Electronically signed by: DO Andrei TOURE [facility] Provider Note - ED Care Diaz sitionon [...] 21-Jun-2022 06:18 by Yony Aguirre () Normal [facility] Provider Note - ED v3on 10-0 Provider [...] BMI (kg/m2): 34.793 Calculated BSA (m2) 1.94 [place] Coma Scale: Best Eye Response: (E4) spontaneous [...] Updated: 06-Jun-2022 19:07 by Meghan Chavez) Normal [facility] Physician Orderon 05-17-2022 Physician Order [id number]#1.00CD:127 Normal [facility] ED Note-Physicianon 05-11-20 ED Note-Physician [id number]#1.00CD:127 Normal [facility] Lab Reportson 05-11-2022 Lab Reports [id number]#1.00CD:127 Normal [facility] RAD - CT Reporton 05-11-2022 RAD - CT Report [id number]#1.00CD:127 Normal [facility] CULTURE URINEon 05-10-2022 CULTURE URINE Isolate 1 [...] Trimethoprim/Sulfamethoxazo le <=20 S F Normal [facility] Comment on above: Performed By: #### U MICRO, ERUR #### [facility] [address] [place] [address] Dr. Alfredo Lizama CBC AUTO DIFFon 05-07-2022 BASO # 0.1 103/ul Normal 0.0-0.1 [facility] Comment on above: Performed By: #### U MICRO, ERUR #### [facility] [address] [place] [address] Dr. Alfredo Lizama Basophils/100 WBC (Bld) 0.5 % Normal 0.2-2.0 [facility] Comment on above: Performed By: #### U MICRO, ERUR #### [facility] [address] [place] [address] Dr. Alfredo Lizama EO # 0.4 103/ul Normal 0.0-0.7 [facility] Comment on above: Performed By: #### U MICRO, ERUR #### [facility] [address] [place] [address] Dr. Alfredo Lizama Eosinophils/100 WBC (Bld) 3.5 % Normal 0.9-7.0 [facility] Comment on above: Performed By: #### U MICRO, ERUR #### [facility] [address] [place] [address] Dr. Alfredo Lizama Erythrocyte distribution width (RBC) [Ratio] 13.2 % Normal 11.0-15.0 [facility] Comment on above: Performed By: #### U MICRO, ERUR #### [facility] [address] [place] [address] Dr. Alfredo Lizama Hematocrit (Bld) [Volume fraction] 44.0 % Normal 36.0-48.0 [facility] Comment on above: Performed By: #### U MICRO, ERUR #### [facility] [address] [place] [address] Dr. Alfredo Lizama Hemoglobin (Bld) [Mass/Vol] 14.8 g/dL Normal 12.0-16.0 [facility] Comment on above: Performed By: #### U MICRO, ERUR #### [facility] [address] [place] [address] Dr. Alfredo Lizama IG # 0.03 10e3/ul Normal 0.00-0.03 [facility] Comment on above: Performed By: #### U MICRO, ERUR #### [facility] [address] [address] [address] Alfredo Lizama IG % 0.2 % Normal 0.0-0.5 [facility] Comment on above: Performed By: #### U MICRO, ERUR #### [facility] [address] [address] [address] Alfredo Lizama LYMPH # 3.8 103/ul Normal 1.2-3.8 [facility] Comment on above: Performed By: #### U MICRO, ERUR #### [facility] [address] [address] [address] Alfredo Lizama Lymphocytes/100 WBC (Bld) 31.3 % Normal 20.5-60.0 [facility] Comment on above: Performed By: #### U MICRO, ERUR #### [facility] [address] [address] [address] Alfredo Lizama MANUAL DIFF REQ NO Normal [facility] Comment on above: Performed By: #### U MICRO, ERUR #### [facility] [address] [address] [address] Alfredo Lizama MCH (RBC) [Entitic mass] 28.8 pg Normal 26.7-34.0 [facility] Comment on above: Performed By: #### U MICRO, ERUR #### [facility] [address] [address] [address] Alfredo Lizama MCHC (RBC) [Mass/Vol] 33.6 g/dL Normal 29.9-35.2 [facility] Comment on above: Performed By: #### U MICRO, ERUR #### [facility] [address] [address] [address] Alfredo Lizama MCV (RBC) [Entitic vol] 85.8 fL Normal 81.0-99.0 [facility] Comment on above: Performed By: #### U MICRO, ERUR #### [facility] [address] [address] [address] Alfredo Lizama MONO # 0.7 103/ul Normal 0.3-0.8 [facility] Comment on above: Performed By: #### U MICRO, ERUR #### [facility] [address] [address] [address] Alfredo Lizama Monocytes/100 WBC (Bld) 5.8 % Normal 1.7-12.0 [facility] Comment on above: Performed By: #### U MICRO, ERUR #### [facility] [address] [place] [address] Dr. Alfredo Lizama NEUT # 7.1 103/ul Critically high 1.4-6.5 [facility] Comment on above: Performed By: #### U MICRO, ERUR #### [facility] [address] [place] [address] Dr. Alfredo Lizama Neutrophils/100 WBC (Bld) 58.7 % Normal 43.0-75.0 [facility] Comment on above: Performed By: #### U MICRO, ERUR #### [facility] [address] [place] [address] Dr. Alfredo Lizama Platelet mean volume (Bld) [Entitic vol] 9.6 fL Normal 9.5-13.5 [facility] Comment on above: Performed By: #### U MICRO, ERUR #### [facility] [address] [place] [address] Dr. Alfredo Lizama PLT 269 103/ul Normal 150-450 [facility] Comment on above: Performed By: #### U MICRO, ERUR #### [facility] [address] [place] [address] Dr. Alfredo Lizama RBC 5.13 106/ul Normal 4.20-5.40 [facility] Comment on above: Performed By: #### U MICRO, ERUR #### [facility] [address] [place] [address] Dr. Alfredo Lizama WBC 12.2 103/ul Critically high 4.0-11.0 [facility] Comment on above: Performed By: #### U MICRO, ERUR #### [facility] [address] [place] [address] ABD/PELV W Paul [...] KORIN STANLEY Date: 2022-05-07 14:00 Normal [facility] ER URINE PROFILEon 2 Bilirubin Ql (U) Negative Normal NEGATIVE [facility] Comment on above: Performed By: #### U MICRO, ERUR #### [facility] [address] [address] [address] Alfredo Lizama Clarity (U) CLOUDY Abnormal CLEAR [facility] Comment on above: Performed By: #### U MICRO, ERUR #### [facility] [address] [address] [address] lAfredo Lizama Color (U) LT. YELLOW Normal YELLOW [facility] Comment on above: Performed By: #### U MICRO, ERUR #### [facility] [address] [place] [address] Dr. Alfredo Lizama ERUAHD A micrscopic examina tion will be performed if indicated. Normal [facility] Comment on above: Performed By: #### U MICRO, ERUR #### [facility] [address] [address] [address] Alfredo Lizama Glucose Ql (U) Negative Normal NEGATIVE [facility] Comment on above: Performed By: #### U MICRO, ERUR #### [facility] [address] [address] [address] Alfredo Lizama Hemoglobin Ql (U) LARGE Abnormal NEGATIVE [facility] Comment on above: Performed By: #### U MICRO, ERUR #### [facility] [address] [address] [address] Alfredo Lizama Ketones Ql (U) Negative Normal NEGATIVE [facility] Comment on above: Performed By: #### U MICRO, ERUR #### [facility] [address] [address] [address] Alfredo Lizama LEUKOCYTES MODERATE Abnormal NEGATIVE [facility] Comment on above: Performed By: #### U MICRO, ERUR #### [facility] [address] [place] [address] Dr. Alfredo Lizama Nitrite Ql (U) Positive Abnormal NEGATIVE [facility] Comment on above: Performed By: #### U MICRO, ERUR #### [facility] [address] [place] [address] Dr. Alfredo Lizama pH (U) 8.5 [pH] Normal 5-9 [facility] Comment on above: Performed By: #### U MICRO, ERUR #### [facility] [address] [place] [address] Dr. Alfredo Lizama Protein (U) [Mass/Vol] 100 mg/dL Abnormal NEGATIVE/ TRACE [facility] Comment on above: Performed By: #### U MICRO, ERUR #### [facility] [address] [place] [address] Dr. Alfredo Lizama SPEC GRAVITY 1.015 Normal 1.005-<=1.0 25 [facility] Comment on above: Performed By: #### U MICRO, ERUR #### [facility] [address] [place] [address] Dr. Alfredo Lizama UR MICRO IND INDICATED Normal [facility] Comment on above: Performed By: #### U MICRO, ERUR #### [facility] [address] [place] [address] Dr. Alfredo Lizama Urobilinogen Qn (U) 1.0 {Tesha'U}/dL Normal 0.2 - 1. 0 [facility] Comment on above: Performed By: #### U MICRO, ERUR #### [facility] [address] [place] [address] Dr. Alfredo Lizama PROF CHEM 8 (BAS METB)on Anion gap [Moles/Vol] 12.0 mmol/L Normal [facility] Comment on above: Performed By: #### U MICRO, ERUR #### [facility] [address] [place] [address] Dr. Alfredo Lizama Calcium [Mass/Vol] 8.6 mg/dL Normal 8.5-10.1 [facility] Comment on above: Performed By: #### U MICRO, ERUR #### [facility] [address] [place] [address] Dr. Alfredo Lizama Chloride [Moles/Vol] 101 mmol/L Normal 98-107 [facility] Comment on above: Performed By: #### U MICRO, ERUR #### [facility] [address] [address] [address] Alfredo Lizama CO2 [Moles/Vol] 28.0 mmol/L Normal 21.0-32.0 [facility] Comment on above: Performed By: #### U MICRO, ERUR #### [facility] [address] [address] [address] Alfredo Lizama Creatinine [Mass/Vol] 0.77 mg/dL Normal 0.55-1.02 [facility] Comment on above: Performed By: #### U MICRO, ERUR #### [facility] [address] [place] [address] Dr. Alfredo Lizama EGFR-AF BOLIVIAN >60 Normal >=60 [facility] Comment on above: Performed By: #### U MICRO, ERUR #### [facility] [address] [place] [address] Dr. Alfredo Lizama EGFR-NON AF BOLIVIAN >60 Normal >=60 [facility] Comment on above: Performed By: #### U MICRO, ERUR #### [facility] [address] [place] [address] Dr. Alfredo Lizama Glucose [Mass/Vol] 96 mg/dL Normal 74-106 [facility] Comment on above: Performed By: #### U MICRO, ERUR #### [facility] [address] [place] [address] Dr. Alfredo Lizama Potassium [Moles/Vol] 4.0 mmol/L Normal 3.5-5.1 [facility] Comment on above: Performed By: #### U MICRO, ERUR #### [facility] [address] [place] [address] Dr. Alfredo Lizama Sodium [Moles/Vol] 137 mmol/L Normal 136-145 [facility] Comment on above: Performed By: #### U MICRO, ERUR #### [facility] [address] [place] [address] Dr. Alfredo Lizama Urea nitrogen [Mass/Vol] 7.0 mg/dL Normal 7.0-18.0 [facility] Comment on above: Performed By: #### U MICRO, ERUR #### [facility] [address] [place] [address] Dr. Alfredo Lizama Urea nitrogen/Creatinine [Mass ratio] 9.1 mg/mg Normal [facility] Comment on above: Performed By: #### U MICRO, ERUR #### [facility] [address] [place] [address] Dr. Alfredo Lizama URINE MICROSCOPIC ONLYon BACTERIA MODERATE Abnormal NONE SEEN [facility] Comment on above: Performed By: #### U MICRO, ERUR #### [facility] [address] [place] [address] Dr. Alfredo Lizama Bacteria identified Cx Nom (U) INDICATED Normal [facility] Comment on above: Performed By: #### U MICRO, ERUR #### [facility] [address] [place] [address] Dr. Alfredo Lizama CAST NONE SEEN Normal NONE SEEN [facility] Comment on above: Performed By: #### U MICRO, ERUR #### [facility] [address] [place] [address] Dr. Alfredo Lizama Crystals LM Nom (Urine sed) NONE SEEN Normal NONE SEEN [facility] Comment on above: Performed By: #### U MICRO, ERUR #### [facility] [address] [place] [address] Dr. Alfredo Lizama Epithelial cells LM Ql (Urine sed) FEW Abnormal NONE SEEN /RARE [facility] Comment on above: Performed By: #### U MICRO, ERUR #### [facility] [address] [place] [address] Dr. Alfredo Lizama MUCOUS NONE SEEN Normal NONE SEEN [facility] Comment on above: Performed By: #### U MICRO, ERUR #### [facility] [address] [place] [address] Dr. Alfredo Lizama RBC 2-5 Abnormal 0-2 [facility] Comment on above: Performed By: #### U MICRO, ERUR #### [facility] [address] [place] [address] Dr. Alfredo Lizama WBC - Abnormal NONE SEEN [facility] Comment on above: Performed By: #### U MICRO, ERUR #### [facility] [address] [place], [place] [id number] Dr. Alfredo Lizama Formson 04-29-2022 Forms [id number]:127 Normal [facility] ED Note-Physicianon 04-14-20 22 ED Note-Physician [id number]:127 Normal [facility] CULTURE URINEon 04-10-2022 CULTURE URINE Isolate 1 [...] Trimethoprim/Sulfamethoxazo le <=20 S F Normal [facility] Comment on above: Performed By: #### U MICRO, ERUR #### [facility] [address] [address] [address] Alfredo Lizama ER URINE PROFILEon 2 Bilirubin Ql (U) Negative Normal NEGATIVE [facility] Comment on above: Performed By: #### U MICRO, ERUR #### [facility] [address] [place] [address] Dr. Alfredo Lizama Clarity (U) CLOUDY Abnormal CLEAR [facility] Comment on above: Performed By: #### U MICRO, ERUR #### [facility] [address] [address] [address] Alfredo Lizama Color (U) YELLOW Normal YELLOW [facility] Comment on above: Performed By: #### U MICRO, ERUR #### [facility] [address] [place] [address] Dr. Alfredo Lizama ERUAHD A micrscopic examina tion will be performed if indicated. Normal [facility] Comment on above: Performed By: #### U MICRO, ERUR #### [facility] [address] [place] [address] Dr. Alfredo Lizama Glucose Ql (U) Negative Normal NEGATIVE [facility] Comment on above: Performed By: #### U MICRO, ERUR #### [facility] [address] [place] [address] Dr. Alfredo Lizama Hemoglobin Ql (U) SMALL Abnormal NEGATIVE [facility] Comment on above: Performed By: #### U MICRO, ERUR #### [facility] [address] [address] [address] Alfredo Lizama Ketones Ql (U) Negative Normal NEGATIVE [facility] Comment on above: Performed By: #### U MICRO, ERUR #### [facility] [address] [address] [address] Alfredo Lizama LEUKOCYTES LARGE Abnormal NEGATIVE [facility] Comment on above: Performed By: #### U MICRO, ERUR #### [facility] [address] [place] [address] Dr. Alfredo Lizama Nitrite Ql (U) Negative Normal NEGATIVE [facility] Comment on above: Performed By: #### U MICRO, ERUR #### [facility] [address] [place] [address] Dr. Alfredo Lizama pH (U) 7.0 [pH] Normal 5-9 [facility] Comment on above: Performed By: #### U MICRO, ERUR #### [facility] [address] [place] [address] Dr. Alfredo Lizama SPEC GRAVITY <=1.005 Abnormal 1.005-<=1.0 25 [facility] Comment on above: Performed By: #### U MICRO, ERUR #### [facility] [address] [place] [address] Dr. Alfredo Lizama UA PROTEIN Negative Normal NEGATIVE/ TRACE [facility] Comment on above: Performed By: #### U MICRO, ERUR #### [facility] [address] [place] [address] Dr. Alfredo Lizama UR MICRO IND INDICATED Normal [facility] Comment on above: Performed By: #### U MICRO, ERUR #### [facility] [address] [place] [address] Dr. Alfredo Lizama Urobilinogen Qn (U) 0.2 {Tesha'U}/dL Normal 0.2 - 1. 0 [facility] Comment on above: Performed By: #### U MICRO, ERUR #### [facility] [address] [place] [address] Dr. Alfredo Lizama URINE MICROSCOPIC ONLYon BACTERIA MODERATE Abnormal NONE SEEN [facility] Comment on above: Performed By: #### U MICRO, ERUR #### [facility] [address] [place] [address] Dr. Alfredo Lizama Bacteria identified Cx Nom (U) INDICATED Normal [facility] Comment on above: Performed By: #### U MICRO, ERUR #### [facility] [address] [place] [address] Dr. Alfredo Lizama CAST NONE SEEN Normal NONE SEEN [facility] Comment on above: Performed By: #### U MICRO, ERUR #### [facility] [address] [place] [address] Dr. Alfredo Lizama Crystals LM Nom (Urine sed) NONE SEEN Normal NONE SEEN [facility] Comment on above: Performed By: #### U MICRO, ERUR #### [facility] [address] [address] [address] Alfredo Lizama Epithelial cells LM Ql (Urine sed) FEW Abnormal NONE SEEN /RARE [facility] Comment on above: Performed By: #### U MICRO, ERUR #### [facility] [address] [address] [address] Alfredo Lizama MUCOUS NONE SEEN Normal NONE SEEN [facility] Comment on above: Performed By: #### U MICRO, ERUR #### [facility] [address] [address] [address] Alfredo Lizama RBC 5-10 Abnormal 0-2 [facility] Comment on above: Performed By: #### U MICRO, ERUR #### [facility] [address] [place] [address] Dr. Alfredo Lizama WBC (U) [#/Vol] /uL Abnormal NONE SEEN [facility] Comment on above: Performed By: #### U MICRO, ERUR #### [facility] [address] [place] [address] Dr. Alfredo Lizama ED Note-Physicianon 04-05-20 ED Note-Physician [id number]:127 Normal [facility] Formson 03-26-2022 Forms [id number]:127 Normal [facility] Basic Metabolic Panelon 11-03 Calcium [Mass/Vol] 8.9 mg/dL Normal 8.2-10.2 [facility] Comment on above: Performed By: #### C BC, CMP, PAB #### [facility] [address] [place] [address] [place] Chloride [Moles/Vol] 101 mmol/L Normal 95-114 [facility] Comment on above: Performed By: #### C BC, CMP, PAB #### [facility] [address] CO2 [Moles/Vol] 29.0 mmol/L Normal 22.0-30.0 [facility] Comment on above: Performed By: #### C DARIUS PATEL, PAB #### [address] Creatinine [Mass/Vol] 0.48 mg/dL Normal 0.44-1.03 [facility] Comment on above: Performed By: #### C DARIUS PATEL, PAB #### [address] Creatinine Clr Calc Pharmacy 150.29 [facility] Comment on above: Result Comment: PERF ORMED BY: [place] [address] PATHOLOGIST CROWN PERFORATOR OPERATOR HUY COX M.D. Performed By: #### C DARIUS PATEL, PAB #### [address] Estimated GFR ( July > 60 [facility] Comment on above: Result Comment: GFR estimated reference range: According to KDOQI guidelines, <60 ml/min/1.73m2 is sufficient to diagnose a patient with chronic kidney disease. Performed By: #### C DARIUS PATEL, PAB #### [address] Estimated GFR (Non- Am > 60 [facility] Comment on above: Performed By: #### C DARIUS PATEL, PAB #### [address] Glucose [Mass/Vol] 111 mg/dL High 70-100 [facility] Comment on above: Result Comment: [place] om Glucose Reference Range is dependent on time and content of last meal. Glucose of more than 200 mg/dL in a nonstressed, ambulatory subject supports the diagnosis of Diabetes Mellitus. ADA recommended reference range Performed By: #### C DARIUS PATEL, PAB #### [address] Potassium [Moles/Vol] 3.6 mmol/L Normal 3.5-5.1 [facility] Comment on above: Performed By: #### C BC, CMP, PAB #### [facility] [address] Sodium [Moles/Vol] 138 mmol/L Normal 136-146 [facility] Comment on above: Performed By: #### C BC, CMP, PAB #### [facility] [address] Urea nitrogen [Mass/Vol] 10 mg/dL Normal 9-23 [facility] Comment on above: Performed By: #### C BC, CMP, PAB #### [facility] [address] Complete Blood Count Auto Di ffon 11-19-2021 Basophils (Bld) [#/Vol] 0.1 10*3/uL Normal 0.0-0.2 [facility] Comment on above: Result Comment: PERF ORMED BY: [place] [address] PATHOLOGIST CROWN PERFORATOR OPERATOR HUY COX M.D. Performed By: #### C BC, CMP, PAB #### [facility] [address] Basophils/100 WBC (Bld) 0.8 % Normal . [facility] Comment on above: Performed By: #### C BC, CMP, PAB #### [facility] [address] Eosinophils (Bld) [#/Vol] 0.4 10*3/uL Normal 0.0-0.45 [facility] Comment on above: Performed By: #### C BC, CMP, PAB #### [facility] [address] [place] [address] [place] Eosinophils/100 WBC (Bld) 5.8 % Normal . [facility] Comment on above: Performed By: #### C BC, CMP, PAB #### [facility] [address] Erythrocyte distribution width (RBC) [Ratio] 14.3 % Normal 11.9-15.3 [facility] Comment on above: Performed By: #### C BC, CMP, PAB #### [address] Hematocrit (Bld) [Volume fraction] 36.0 % Normal 34.0-46.4 [facility] Comment on above: Performed By: #### C BC, CMP, PAB #### [address] Hemoglobin (Bld) [Mass/Vol] 11.9 g/dL Normal 11.8-15.4 [facility] Comment on above: Performed By: #### C BC, CMP, PAB #### [address] Lymphocytes (Bld) [#/Vol] 2.7 10*3/uL Normal 1.00-4.8 [facility] Comment on above: Performed By: #### C BC, CMP, PAB #### [address] Lymphocytes/100 WBC (Bld) 37.6 % Normal . [facility] Comment on above: Performed By: #### C BC, CMP, PAB #### [address] MCH (RBC) [Entitic mass] 28.1 pg Normal 24.7-34.3 [facility] Comment on above: Performed By: #### C BC, CMP, PAB #### [address] MCV (RBC) [Entitic vol] 85.3 fL Normal 80-100 [facility] Comment on above: Performed By: #### C BC, CMP, PAB #### [address] Mean Corpuscular HGB Conc 32.9 g/dL Normal 32.0-35.0 [facility] Comment on above: Performed By: #### C BC, CMP, PAB #### [address] Monocytes (Bld) [#/Vol] 0.4 10*3/uL Normal 0.0-0.8 [facility] Comment on above: Performed By: #### C BC, CMP, PAB #### [facility] [address] [place] [address] [place] Monocytes/100 WBC (Bld) 5.2 % Normal . [facility] Comment on above: Performed By: #### C BC, CMP, PAB #### [facility] [address] [place] [address] [place] Neutrophils (Bld) [#/Vol] 3.7 10*3/uL Normal 1.8-7.7 [facility] Comment on above: Performed By: #### C BC, CMP, PAB #### [facility] [address] [place] [address] [place] Neutrophils/100 WBC (Bld) 50.6 % Normal . [facility] Comment on above: Performed By: #### C BC, CMP, PAB #### [facility] [address] [place] [address] [place] Nucleated RBC/100 WBC (Bld) [Ratio] 0.0 % Normal 0-0.5 [facility] Comment on above: Performed By: #### C BC, CMP, PAB #### [facility] [address] [place] [address] [place] Platelet mean volume (Bld) [Entitic vol] 7.6 fL Normal 6.3-10.7 [facility] Comment on above: Performed By: #### C BC, CMP, PAB #### [facility] [address] [place], [place] [address] [place] Platelets (Bld) [#/Vol] 252 10*3/uL Normal 150-450 [facility] Comment on above: Performed By: #### C BC, CMP, PAB #### [facility] [address] [place] [address] [place] RBC (Bld) [#/Vol] 4.22 10*6/uL Normal 3.60-5.00 [facility] Comment on above: Performed By: #### C BC, CMP, PAB #### [facility] [address] [place] [address] [place] WBC (Bld) [#/Vol] 7.2 10*3/uL Normal 4.5-11.0 [facility] Comment on above: Performed By: #### C BC, CMP, PAB #### [address] Ammoniaon 11-11-2021 Ammonia (P) [Moles/Vol] 26 umol/L Normal 11-35 [facility] Comment on above: Result Comment: PERF ORMED BY: [place] [address] PATHOLOGIST CROWN PERFORATOR OPERATOR HUY COX M.D. Performed By: #### C BC, CMP, PAB #### [address] Hepatic Panelon 11-11-2021 Albumin [Mass/Vol] 3.0 g/dL Low 3.2-5.5 [facility] Comment on above: Performed By: #### C BC, CMP, PAB #### [address] Albumin/Globulin [Mass ratio] 1.0 {ratio} Normal [facility] Comment on above: Performed By: #### C BC, CMP, PAB #### [address] ALP [Catalytic activity/Vol] 187 U/L High 32-92 [facility] Comment on above: Result Comment: PERF ORMED BY: [place] [address] PATHOLOGIST CROWN PERFORATOR OPERATOR HUY COX M.D. Performed By: #### C BC, CMP, PAB #### [facility] [address] [place] [address] ALT [Catalytic activity/Vol] 54 U/L Normal 10-60 [facility] Comment on above: Performed By: #### C BC, CMP, PAB #### [address] AST [Catalytic activity/Vol] 39 U/L Normal 10-42 [facility] Comment on above: Performed By: #### C BC, CMP, PAB #### [address] Bilirubin [Mass/Vol] 0.3 mg/dL Normal 0.3-1.2 [facility] Comment on above: Performed By: #### C BC, CMP, PAB #### [address] Bilirubin,Indirect Not performed Normal [facility] Comment on above: Performed By: #### C BC, CMP, PAB #### [address] Bilirubin.indirect [Mass/Vol] mg/dL Normal 0.0-0.4 [facility] Comment on above: Performed By: #### C BC, CMP, PAB #### [address] Globulin (S) [Mass/Vol] 3.0 g/dL Normal [facility] Comment on above: Performed By: #### C BC, CMP, PAB #### [address] Protein [Mass/Vol] 6.0 g/dL Low 6.1-7.9 [facility] Comment on above: Performed By: #### C BC, CMP, PAB #### [address] Hepatitis Acute Panelon 03-0 HBsAg Screen Negative Normal Negative [facility] Comment on above: Performed By: #### C BC, CMP, PAB #### [address] Hepatitis A Antibody IgM Negative Normal Negative [facility] Comment on above: Performed By: #### C BC, CMP, PAB #### [address] Hepatitis B Core Antibody IgM Negative Normal Negative [facility] Comment on above: Performed By: #### C BC, CMP, PAB #### [address] Hepatitis C Virus Antibody 0.2 Normal 0.0-0.9 [facility] Comment on above: Performed By: #### C JORGE, CMP, PAB #### [facility] [address] [place] [address] Interpretation Hepatitis C Normal . [facility] Comment on above: Result Comment: Nega tive Not infected with HCV, unless recent infection is suspected or other evidence exists to indicate HCV infection. Performed at: - [facility] [id number] Professional Development Director: Pedro Luis José PhD, Phone: [phone] PERFORMED BY: [place] [address] PATHOLOGIST CROWN PERFORATOR OPERATOR HUY COX M.D. Performed By: #### C JORGE, DARIUS, PAB #### [address] US liveron 11-11-2021 liver [facility] [place] [address] [place] [address] Ultrasound Report Signed Patient: Morales Lee MR#: [id number] : 1975 Acct:[id number] Age/Sex: 46 / F ADM Date: 10/29/21 Loc: Room: 6L7597-4 Type: ADM IN Attending Dr: Richard Acevedo [...] Alexandru Pond M.D.11/11/2021 10:23 AM Dictation Location: [place] [address] Tech: Ermelinda Diaz Transcribed By: [facility] 11/11/21 1023 Dictated By: Alexandru Pond DO 11/11/21 1018 Signed By: 11/11/21 1023 Normal [facility] Complete Blood Count Auto Di ffon 11-10-2021 Basophils (Bld) [#/Vol] 0.1 10*3/uL Normal 0.0-0.2 [facility] Comment on above: Result Comment: PERF ORMED BY: [place] [address] PATHOLOGIST CROWN PERFORATOR OPERATOR HUY COX M.D. Performed By: #### C BC #### [address] Basophils/100 WBC (Bld) 1.2 % Normal . [facility] Comment on above: Performed By: #### C BC #### [address] Eosinophils (Bld) [#/Vol] 0.3 10*3/uL Normal 0.0-0.45 [facility] Comment on above: Performed By: #### C BC #### [address] Eosinophils/100 WBC (Bld) 5.9 % Normal . [facility] Comment on above: Performed By: #### C BC #### [address] Erythrocyte distribution width (RBC) [Ratio] 14.2 % Normal 11.9-15.3 [facility] Comment on above: Performed By: #### C BC #### [address] Hematocrit (Bld) [Volume fraction] 37.1 % Normal 34.0-46.4 [facility] Comment on above: Performed By: #### C BC #### [address] Hemoglobin (Bld) [Mass/Vol] 12.3 g/dL Normal 11.8-15.4 [facility] Comment on above: Performed By: #### C BC #### [address] Lymphocytes (Bld) [#/Vol] 2.0 10*3/uL Normal 1.00-4.8 [facility] Comment on above: Performed By: #### C BC #### [address] Lymphocytes/100 WBC (Bld) 36.5 % Normal . [facility] Comment on above: Performed By: #### C BC #### [address] MCH (RBC) [Entitic mass] 28.6 pg Normal 24.7-34.3 [facility] Comment on above: Performed By: #### C BC #### [address] MCV (RBC) [Entitic vol] 86.5 fL Normal 80-100 [facility] Comment on above: Performed By: #### C BC #### [address] Mean Corpuscular HGB Conc 33.1 g/dL Normal 32.0-35.0 [facility] Comment on above: Performed By: #### C BC #### [address] Monocytes (Bld) [#/Vol] 0.3 10*3/uL Normal 0.0-0.8 [facility] Comment on above: Performed By: #### C BC #### [place] [address] [place] Monocytes/100 WBC (Bld) 5.3 % Normal . [facility] Comment on above: Performed By: #### C BC #### [place] [address] [place] Neutrophils (Bld) [#/Vol] 2.8 10*3/uL Normal 1.8-7.7 [facility] Comment on above: Performed By: #### C BC #### [facility] [address] [place] [address] [place] Neutrophils/100 WBC (Bld) 51.1 % Normal . [facility] Comment on above: Performed By: #### C BC #### [facility] [address] Nucleated RBC/100 WBC (Bld) [Ratio] 0.1 % Normal 0-0.5 [facility] Comment on above: Performed By: #### C BC #### [address] Platelet mean volume (Bld) [Entitic vol] 7.8 fL Normal 6.3-10.7 [facility] Comment on above: Performed By: #### C BC #### [address] Platelets (Bld) [#/Vol] 214 10*3/uL Normal 150-450 [facility] Comment on above: Performed By: #### C BC #### [address] RBC (Bld) [#/Vol] 4.28 10*6/uL Normal 3.60-5.00 [facility] Comment on above: Performed By: #### C BC #### [address] WBC (Bld) [#/Vol] 5.4 10*3/uL Normal 4.5-11.0 [facility] Comment on above: Performed By: #### C BC #### [address] Comprehensive Metabolic Pane shree 11-10-2021 Albumin [Mass/Vol] 2.9 g/dL Low 3.2-5.5 [facility] Comment on above: Performed By: #### C BC, CMP, PAB #### [address] [place] [address] [place] Albumin/Globulin [Mass ratio] 0.9 {ratio} Normal [facility] Comment on above: Performed By: #### C BC, CMP, PAB #### [address] ALP [Catalytic activity/Vol] 201 U/L High 32-92 [facility] Comment on above: Performed By: #### C BC, CMP, PAB #### [address] ALT [Catalytic activity/Vol] 67 U/L High 10-60 [facility] Comment on above: Performed By: #### C BC, CMP, PAB #### [address] AST [Catalytic activity/Vol] 66 U/L High 10-42 [facility] Comment on above: Performed By: #### C BC, CMP, PAB #### [address] Bilirubin [Mass/Vol] 0.4 mg/dL Normal 0.3-1.2 [facility] Comment on above: Performed By: #### C BC, CMP, PAB #### [address] Calcium [Mass/Vol] 8.7 mg/dL Normal 8.2-10.2 [facility] Comment on above: Performed By: #### C BC, CMP, PAB #### [place] [address] [place] Chloride [Moles/Vol] 100 mmol/L Normal 95-114 [facility] Comment on above: Performed By: #### C BC, CMP, PAB #### [facility] [address] [place] [address] CO2 [Moles/Vol] 26.4 mmol/L Normal 22.0-30.0 [facility] Comment on above: Performed By: #### C BC, CMP, PAB #### [facility] [address] [place] [address] Creatinine [Mass/Vol] 0.50 mg/dL Normal 0.44-1.03 [facility] Comment on above: Performed By: #### C BC, CMP, PAB #### [facility] [address] Creatinine Clr Calc Pharmacy 142.11 [facility] Comment on above: Result Comment: PERF ORMED BY: [place] [address] PATHOLOGIST CROWN PERFORATOR OPERATOR HUY COX M.D. Performed By: #### C BC, CMP, PAB #### [address] Estimated GFR ( July > 60 [facility] Comment on above: Result Comment: GFR estimated reference range: According to KDOQI guidelines, <60 ml/min/1.73m2 is sufficient to diagnose a patient with chronic kidney disease. Performed By: #### C BC CMP, PAB #### [address] Estimated GFR (Non- Am > 60 [facility] Comment on above: Performed By: #### C BC, CMP, PAB #### [address] Globulin (S) [Mass/Vol] 3.1 g/dL [facility] Comment on above: Performed By: #### C BC CMP, PAB #### [address] Glucose [Mass/Vol] 110 mg/dL High 70-100 [facility] Comment on above: Result Comment: [place] Glucose Reference Range is dependent on time and content of last meal. Glucose of more than 200 mg/dL in a nonstressed, ambulatory subject supports the diagnosis of Diabetes Mellitus. ADA recommended reference range Performed By: #### C BC, CMP, PAB #### [address] Potassium [Moles/Vol] 4.0 mmol/L Normal 3.5-5.1 [facility] Comment on above: Performed By: #### C BC, CMP, PAB #### [facility] [address] [place] [id number] [place] Protein [Mass/Vol] 6.0 g/dL Low 6.1-7.9 [facility] Comment on above: Performed By: #### C BC, CMP, PAB #### [facility] [address] [place] [address] [place] Sodium [Moles/Vol] 136 mmol/L Normal 136-146 [facility] Comment on above: Performed By: #### C BC, CMP, PAB #### [facility] [address] [place] [address] [place] Urea nitrogen [Mass/Vol] 8 mg/dL Low 9-23 [facility] Comment on above: Performed By: #### C BC, CMP, PAB #### [facility] [address] [place] [address] [place] Dipstick and Microscopicon 0 11-10-2021 Appearance (U) Turbid Critically abnormal Clear [facility] Comment on above: Order Comment: Name Collection Type:: Alvares Catheter Performed By: #### C BC, CMP, PAB #### [facility] [address] [place] [address] [place] Bacteria,Urine 3+ High None Seen [facility] Comment on above: Order Comment: Name Collection Type:: Alvares Catheter Performed By: #### C BC, CMP, PAB #### [facility] [address] [place] [address] [place] Bilirubin,Urine Negative Normal Negative [facility] Comment on above: Order Comment: Name Collection Type:: Alvares Catheter Performed By: #### C BC, CMP, PAB #### [facility] [address] [place] [address] [place] Color (U) Yellow Normal Yellow [facility] Comment on above: Order Comment: Name Collection Type:: Alvares Catheter Performed By: #### C BC, CMP, PAB #### [facility] [address] [place] [address] [place] Glucose Ql (U) Normal Normal Normal [facility] Comment on above: Order Comment: Name Collection Type:: Alvares Catheter Performed By: #### C BC, CMP, PAB #### [facility] [address] [place] [address] [place] Hyaline Casts,Urine None Seen Normal 0-1 [facility] Comment on above: Order Comment: Name Collection Type:: Alvares Catheter Performed By: #### C BC, CMP, PAB #### [facility] [address] Ketones Ql (U) Negative Normal Negative [facility] Comment on above: Order Comment: Name Collection Type:: Alvares Catheter Performed By: #### C BC, CMP, PAB #### [address] Leukocyte esterase Test strip Ql (U) 3+ High Negative [facility] Comment on above: Order Comment: Name Collection Type:: Alvares Catheter Performed By: #### C BC, CMP, PAB #### [address] Nitrite,Urine Positive High Negative [facility] Comment on above: Order Comment: Name Collection Type:: Alvares Catheter Performed By: #### C BC, CMP, PAB #### [place] [address] [place] Occult Blood,Urine 2+ High Negative [facility] Comment on above: Order Comment: Name Collection Type:: Alvares Catheter Result Comment: PERF ORMED BY: [place] [address] PATHOLOGIST CROWN PERFORATOR OPERATOR HUY COX M.D. Performed By: #### C BC, CMP, PAB #### [facility] [address] [place] [address] Other Casts,Urine None Seen Normal None Seen [facility] Comment on above: Order Comment: Name Collection Type:: Alvares Catheter Result Comment: PERF ORMED BY: [place] [address] PATHOLOGIST CROWN PERFORATOR OPERATOR HUY COX M.D. Performed By: #### C BC, CMP, PAB #### [facility] [address] [place] [address] [place] pH (U) 8.5 [pH] Normal 5.0-9.0 [facility] Comment on above: Order Comment: Name Collection Type:: Alvares Catheter Performed By: #### C BC, CMP, PAB #### [address] Protein,Urine Negative Normal Negative [facility] Comment on above: Order Comment: Name Collection Type:: Alvares Catheter Performed By: #### C BC, CMP, PAB #### [place] [address] [place] RBC,Urine 1-2 Normal 0-4 [facility] Comment on above: Order Comment: Name Collection Type:: Alvares Catheter Performed By: #### C BC, CMP, PAB #### [address] Specificy [place],Urine 1.006 Normal 1.001-1.030 [facility] Comment on above: Order Comment: Name Collection Type:: Alvares Catheter Performed By: #### C BC, CMP, PAB #### [place] [address] [place] Squamous Epithelial Cell,Urine 3-4 High 0-2 [facility] Comment on above: Order Comment: Name Collection Type:: Alvares Catheter Performed By: #### C BC, CMP, PAB #### [address] Triple Phosphate Crystal,Urine 2+ Normal [facility] Comment on above: Order Comment: Name Collection Type:: Alvares Catheter Performed By: #### C BC, CMP, PAB #### [place] [address] [place] Urobilinogen,Urine Normal Normal Normal [facility] Comment on above: Order Comment: Name Collection Type:: Alvares Catheter Performed By: #### C BC, CMP, PAB #### [place] [address] [place] WBC,Urine 20-49 High 0-4 [facility] Comment on above: Order Comment: Name Collection Type:: Alvares Catheter Performed By: #### C BC, CMP, PAB #### [facility] [address] [place] [address] Urine Cultureon 11-10-2021 Bacteria identified Cx Nom (U) ORGANISM: Providencia rettgeri (O:PRORET) [place] Count >100,000 Aerobic JOSE Charge (NUC86) SUSCEPTIBILITY [...] RESISTANT TO ALL B-LACTAM DRUGS. PERFORMED BY: [place] [address] PATHOLOGIST CROWN PERFORATOR OPERATOR HUY COX M.D. Normal [facility] Comment on above: Performed By: #### C BC, CMP, PAB #### [facility] [address] [place] [address] Basic Metabolic Panelon 03-0 Calcium [Mass/Vol] 8.7 mg/dL Normal 8.2-10.2 [facility] Comment on above: Performed By: #### B MP, CBC #### [address] Chloride [Moles/Vol] 102 mmol/L Normal 95-114 [facility] Comment on above: Performed By: #### B MP, CBC #### [address] CO2 [Moles/Vol] 25.5 mmol/L Normal 22.0-30.0 [facility] Comment on above: Performed By: #### B MP, CBC #### [facility] [address] Creatinine [Mass/Vol] 0.71 mg/dL Normal 0.44-1.03 [facility] Comment on above: Performed By: #### B MP, CBC #### [address] Creatinine Clr Calc Pharmacy 100.08 [facility] Comment on above: Result Comment: PERF ORMED BY: [place] [address] PATHOLOGIST CROWN PERFORATOR OPERATOR HUY COX M.D. Performed By: #### B MP, CBC #### [address] Estimated GFR ( July > 60 [facility] Comment on above: Result Comment: GFR estimated reference range: According to KDOQI guidelines, <60 ml/min/1.73m2 is sufficient to diagnose a patient with chronic kidney disease. Performed By: #### B MP, CBC #### [facility] [address] [place] [address] Estimated GFR (Non- Am > 60 [facility] Comment on above: Performed By: #### B MP, CBC #### [facility] [address] [place] [address] [place] Glucose [Mass/Vol] 104 mg/dL High 70-100 [facility] Comment on above: Result Comment: [place] Glucose Reference Range is dependent on time and content of last meal. Glucose of more than 200 mg/dL in a nonstressed, ambulatory subject supports the diagnosis of Diabetes Mellitus. ADA recommended reference range Performed By: #### B MP, CBC #### [address] Potassium [Moles/Vol] 4.1 mmol/L Normal 3.5-5.1 [facility] Comment on above: Performed By: #### B MP, CBC #### [address] Sodium [Moles/Vol] 137 mmol/L Normal 136-146 [facility] Comment on above: Performed By: #### B MP, CBC #### [address] Urea nitrogen [Mass/Vol] 10 mg/dL Normal 9-23 [facility] Comment on above: Performed By: #### B MP, CBC #### [address] Complete Blood Count Auto Di ffon 11-06-2021 Basophils (Bld) [#/Vol] 0.1 10*3/uL Normal 0.0-0.2 [facility] Comment on above: Result Comment: PERF ORMED BY: [place] [address] PATHOLOGIST CROWN PERFORATOR OPERATOR HUY COX M.D. Performed By: #### B MP, CBC #### [address] Basophils/100 WBC (Bld) 0.8 % Normal . [facility] Comment on above: Performed By: #### B MP, CBC #### [address] Eosinophils (Bld) [#/Vol] 0.4 10*3/uL Normal 0.0-0.45 [facility] Comment on above: Performed By: #### B MP, CBC #### [address] Eosinophils/100 WBC (Bld) 5.5 % Normal . [facility] Comment on above: Performed By: #### B MP, CBC #### [address] Erythrocyte distribution width (RBC) [Ratio] 14.2 % Normal 11.9-15.3 [facility] Comment on above: Performed By: #### B MP, CBC #### [address] Hematocrit (Bld) [Volume fraction] 36.0 % Normal 34.0-46.4 [facility] Comment on above: Performed By: #### B MP, CBC #### [address] Hemoglobin (Bld) [Mass/Vol] 12.0 g/dL Normal 11.8-15.4 [facility] Comment on above: Performed By: #### B MP, CBC #### [address] Lymphocytes (Bld) [#/Vol] 2.4 10*3/uL Normal 1.00-4.8 [facility] Comment on above: Performed By: #### B MP, CBC #### [address] Lymphocytes/100 WBC (Bld) 35.2 % Normal . [facility] Comment on above: Performed By: #### B MP, CBC #### [address] MCH (RBC) [Entitic mass] 28.9 pg Normal 24.7-34.3 [facility] Comment on above: Performed By: #### B MP, CBC #### [address] MCV (RBC) [Entitic vol] 86.4 fL Normal 80-100 [facility] Comment on above: Performed By: #### B MP, CBC #### [address] Mean Corpuscular HGB Conc 33.4 g/dL Normal 32.0-35.0 [facility] Comment on above: Performed By: #### B MP, CBC #### [address] Monocytes (Bld) [#/Vol] 0.3 10*3/uL Normal 0.0-0.8 [facility] Comment on above: Performed By: #### B MP, CBC #### [facility] [address] [place] [address] [place] Monocytes/100 WBC (Bld) 4.8 % Normal . [facility] Comment on above: Performed By: #### B MP, CBC #### [facility] [address] [place] [address] [place] Neutrophils (Bld) [#/Vol] 3.7 10*3/uL Normal 1.8-7.7 [facility] Comment on above: Performed By: #### B MP, CBC #### [facility] [address] Neutrophils/100 WBC (Bld) 53.7 % Normal . [facility] Comment on above: Performed By: #### B MP, CBC #### [facility] [address] [place] [address] [place] Nucleated RBC/100 WBC (Bld) [Ratio] 0.0 % Normal 0-0.5 [facility] Comment on above: Performed By: #### B MP, CBC #### [facility] [address] [place] [address] [place] Platelet mean volume (Bld) [Entitic vol] 8.2 fL Normal 6.3-10.7 [facility] Comment on above: Performed By: #### B MP, CBC #### [facility] [address] [place] [address] [place] Platelets (Bld) [#/Vol] 235 10*3/uL Normal 150-450 [facility] Comment on above: Performed By: #### B MP, CBC #### [facility] [address] [place] [address] [place] RBC (Bld) [#/Vol] 4.17 10*6/uL Normal 3.60-5.00 [facility] Comment on above: Performed By: #### B MP, CBC #### [facility] [address] [place] [address] [place] WBC (Bld) [#/Vol] 6.9 10*3/uL Normal 4.5-11.0 [facility] Comment on above: Performed By: #### B MP, CBC #### [address] US venous duplex LE BIon US venous duplex LE BI [facility] [place] [address] [place] [address] Ultrasound Report Signed Patient: Morales Lee MR#: [id number] : 1975 Acct:[id number] Age/Sex: 46 / F ADM Date: 10/29/21 Loc: Room: [address] [place] [address] Type: ADM IN Attending Dr: Richard Acevedo [...] Carlos Neal MD11/04/2021 11:36 AM Dictation Location: [place] [address] Tech: Natalia Rivas Transcribed By: CORTNEY 11/04/21 1136 Dictated By: Juan Carlos Neal MD 11/04/21 1135 Signed By: 11/04/21 1136 Normal [facility] Complete Blood Count Auto Di ffon 10-30-2021 Basophils (Bld) [#/Vol] 0.0 10*3/uL Normal 0.0-0.2 [facility] Comment on above: Result Comment: PERF ORMED BY: [place] [address] PATHOLOGIST CROWN PERFORATOR OPERATOR JIANLAN SUN M.D. Performed By: #### C BC, CMP, PAB #### [facility] [address] [place] [id number] [place] Basophils/100 WBC (Bld) 0.6 % Normal . [facility] Comment on above: Performed By: #### C BC, CMP, PAB #### [facility] [address] [place] [address] [place] Eosinophils (Bld) [#/Vol] 0.4 10*3/uL Normal 0.0-0.45 [facility] Comment on above: Performed By: #### C BC, CMP, PAB #### [facility] [address] [place] [address] [place] Eosinophils/100 WBC (Bld) 4.9 % Normal . [facility] [facility] Comment on above: Performed By: #### C BC, CMP, PAB #### [facility] [address] [place] [address] [place] Erythrocyte distribution width (RBC) [Ratio] 14.3 % Normal 11.9-15.3 [facility] Comment on above: Performed By: #### C BC, CMP, PAB #### [facility] [address] [place] [address] [place] Hematocrit (Bld) [Volume fraction] 36.1 % Normal 34.0-46.4 [facility] Comment on above: Performed By: #### C BC, CMP, PAB #### [facility] [address] [place] [address] [place] Hemoglobin (Bld) [Mass/Vol] 12.1 g/dL Normal 11.8-15.4 [facility] Comment on above: Performed By: #### C BC, CMP, PAB #### [facility] [address] [place] [address] [place] Lymphocytes (Bld) [#/Vol] 2.8 10*3/uL Normal 1.00-4.8 [facility] Comment on above: Performed By: #### C BC, CMP, PAB #### [facility] [address] [place] [id number] [place] Lymphocytes/100 WBC (Bld) 39.0 % Normal . [facility] Comment on above: Performed By: #### C BC, CMP, PAB #### [facility] [address] MCH (RBC) [Entitic mass] 28.7 pg Normal 24.7-34.3 [facility] Comment on above: Performed By: #### C BC, CMP, PAB #### [facility] [address] MCV (RBC) [Entitic vol] 85.7 fL Normal 80-100 [facility] Comment on above: Performed By: #### C BC, CMP, PAB #### [facility] [address] Mean Corpuscular HGB Conc 33.4 g/dL Normal 32.0-35.0 [facility] Comment on above: Performed By: #### C BC, CMP, PAB #### [facility] [address] Monocytes (Bld) [#/Vol] 0.4 10*3/uL Normal 0.0-0.8 [facility] Comment on above: Performed By: #### C BC, CMP, PAB #### [address] Monocytes/100 WBC (Bld) 5.2 % Normal . [facility] Comment on above: Performed By: #### C BC, CMP, PAB #### [facility] [address] [place] [address] [place] Neutrophils (Bld) [#/Vol] 3.6 10*3/uL Normal 1.8-7.7 [facility] Comment on above: Performed By: #### C BC, CMP, PAB #### [place] [address] [place] Neutrophils/100 WBC (Bld) 50.3 % Normal . [facility] Comment on above: Performed By: #### C BC, CMP, PAB #### [address] Nucleated RBC/100 WBC (Bld) [Ratio] 0.0 % Normal 0-0.5 [facility] Comment on above: Performed By: #### C BC, CMP, PAB #### [facility] [address] Platelet mean volume (Bld) [Entitic vol] 8.1 fL Normal 6.3-10.7 [facility] Comment on above: Performed By: #### C BC, CMP, PAB #### [facility] [address] Platelets (Bld) [#/Vol] 261 10*3/uL Normal 150-450 [facility] Comment on above: Performed By: #### C BC, CMP, PAB #### [address] RBC (Bld) [#/Vol] 4.22 10*6/uL Normal 3.60-5.00 [facility] Comment on above: Performed By: #### C BC, CMP, PAB #### [address] WBC (Bld) [#/Vol] 7.2 10*3/uL Normal 4.5-11.0 [facility] Comment on above: Performed By: #### C BC, CMP, PAB #### [address] Comprehensive Metabolic Pane shree 10-30-2021 Albumin [Mass/Vol] 2.8 g/dL Low 3.2-5.5 [facility] Comment on above: Performed By: #### C BC, CMP, PAB #### [address] Albumin/Globulin [Mass ratio] 1.0 {ratio} Normal [facility] Comment on above: Performed By: #### C BC, CMP, PAB #### [address] ALP [Catalytic activity/Vol] 116 U/L High 32-92 [facility] Comment on above: Performed By: #### C BC, CMP, PAB #### [address] ALT [Catalytic activity/Vol] 20 U/L Normal 10-60 [facility] Comment on above: Performed By: #### C BC, CMP, PAB #### [facility] [address] AST [Catalytic activity/Vol] 22 U/L Normal 10-42 [facility] Comment on above: Performed By: #### C BC, CMP, PAB #### [facility] [address] Bilirubin [Mass/Vol] 0.5 mg/dL Normal 0.3-1.2 [facility] Comment on above: Performed By: #### C BC, CMP, PAB #### [facility] [address] Calcium [Mass/Vol] 8.7 mg/dL Normal 8.2-10.2 [facility] Comment on above: Performed By: #### C BC, CMP, PAB #### [address] Chloride [Moles/Vol] 105 mmol/L Normal 95-114 [facility] Comment on above: Performed By: #### C BC, CMP, PAB #### [facility] [address] CO2 [Moles/Vol] 26.8 mmol/L Normal 22.0-30.0 [facility] Comment on above: Performed By: #### C BC, CMP, PAB #### [facility] [address] Creatinine [Mass/Vol] 0.51 mg/dL Normal 0.44-1.03 [facility] Comment on above: Performed By: #### C BC, CMP, PAB #### [facility] [address] [place] [address] [place] Creatinine Clr Calc Pharmacy 123.73 [facility] Comment on above: Performed By: #### C BC, CMP, PAB #### [facility] [address] [place] [address] [place] Estimated GFR ( July > 60 [facility] Comment on above: Result Comment: GFR estimated reference range: According to KDOQI guidelines, <60 ml/min/1.73m2 is sufficient to diagnose a patient with chronic kidney disease. Performed By: #### C DARIUS PATEL, PAB #### [address] Estimated GFR (Non- Am > 60 Normal [facility] Comment on above: Performed By: #### C DARIUS PATEL, PAB #### [address] Globulin (S) [Mass/Vol] 2.8 g/dL Normal [facility] Comment on above: Performed By: #### C DARIUS PATEL, PAB #### [address] Glucose [Mass/Vol] 115 mg/dL High 70-100 [facility] Comment on above: Result Comment: [place] om Glucose Reference Range is dependent on time and content of last meal. Glucose of more than 200 mg/dL in a nonstressed, ambulatory subject supports the diagnosis of Diabetes Mellitus. ADA recommended reference range Performed By: #### C DARIUS PATEL, PAB #### [address] Potassium [Moles/Vol] 3.7 mmol/L Normal 3.5-5.1 [facility] Comment on above: Performed By: #### C DARIUS PATEL, PAB #### [address] Protein [Mass/Vol] 5.6 g/dL Low 6.1-7.9 [facility] Comment on above: Performed By: #### C DARIUS PATEL, PAB #### [address] Sodium [Moles/Vol] 140 mmol/L Normal 136-146 [facility] Comment on above: Performed By: #### C JORGE CMP, PAB #### [facility] [address] Urea nitrogen [Mass/Vol] 7 mg/dL Low 9-23 [facility] Comment on above: Performed By: #### C BC, CMP, PAB #### [facility] [address] [place] [address] [place] Dipstick and Microscopicon 0 10-30-2021 Appearance (U) Clear Normal Clear [facility] Comment on above: Order Comment: Name Collection Type:: Voided Performed By: #### A DDONUAPLUS, CUU #### [place] [address] [place] Bacteria,Urine 4+ High None Seen [facility] Comment on above: Order Comment: Name Collection Type:: Voided Performed By: #### A DDONUAPLUS, CUU #### [place] [address] [place] Bilirubin,Urine Negative Normal Negative [facility] Comment on above: Order Comment: Name Collection Type:: Voided Performed By: #### A DDONUAPLUS, CUU #### [place] [address] [place] Color (U) Yellow Normal Yellow [facility] Comment on above: Order Comment: Name Collection Type:: Voided Performed By: #### A DDONUAPLUS, CUU #### [place] [address] [place] Glucose Ql (U) Normal Normal Normal [facility] Comment on above: Order Comment: Name Collection Type:: Voided Performed By: #### A DDONUAPLUS, CUU #### [place] [address] [place] Hyaline Casts,Urine 0-8 Normal 0-8 [facility] Comment on above: Order Comment: Name Collection Type:: Voided Result Comment: PERF ORMED BY: [place] [address] PATHOLOGIST CROWN PERFORATOR OPERATOR HUY COX M.D. Performed By: #### A DDONUAPLUS, CUU #### [place] [address] [place] Ketones Ql (U) Negative Normal Negative [facility] Comment on above: Order Comment: Name Collection Type:: Voided Performed By: #### A DDONUAPLUS, CUU #### [facility] [address] [place] [address] Leukocyte esterase Test strip Ql (U) 3+ High Negative [facility] Comment on above: Order Comment: Name Collection Type:: Voided Performed By: #### A DDONUAPLUS, CUU #### [place] [address] [place] Nitrite,Urine Positive High Negative [facility] Comment on above: Order Comment: Name Collection Type:: Voided Performed By: #### A DDONUAPLUS, CUU #### [address] Occult Blood,Urine Negative Normal Negative [facility] Comment on above: Order Comment: Name Collection Type:: Voided Result Comment: PERF ORMED BY: [place] [address] PATHOLOGIST CROWN PERFORATOR OPERATOR HUY COX M.D. Performed By: #### A DDONUAPLUS, CUU #### [address] pH (U) 5.5 [pH] Normal 5.0-9.0 [facility] Comment on above: Order Comment: Name Collection Type:: Voided Performed By: #### A DDONUAPLUS, CUU #### [place] [address] [place] Protein,Urine Negative Normal Negative [facility] Comment on above: Order Comment: Name Collection Type:: Voided Performed By: #### A DDONUAPLUS, CUU #### [place] [address] [place] RBC LM.HPF (Urine sed) [#/Area] 0 /[HPF] Normal 0-4 [facility] Comment on above: Order Comment: Name Collection Type:: Voided Performed By: #### A DDONUAPLUS, CUU #### [place] [address] [place] Specificy [place],Urine 1.012 Normal 1.001-1.030 [facility] Comment on above: Order Comment: Name Collection Type:: Voided Performed By: #### A DDONUAPLUS, CUU #### [address] Squamous Epithelial Cell,Urine 0-1 Normal 0-2 [facility] Comment on above: Order Comment: Name Collection Type:: Voided Performed By: #### A DDONUAPLUS, CUU #### [address] Urobilinogen,Urine Normal Normal Normal [facility] Comment on above: Order Comment: Name Collection Type:: Voided Performed By: #### A DDONUAPLUS, CUU #### [address] WBC,Urine 20-49 High 0-4 [facility] Comment on above: Order Comment: Name Collection Type:: Voided Performed By: #### A DDONUAPLUS, CUU #### [address] Prealbuminon 10-30-2021 Prealbumin [Mass/Vol] 13.1 mg/dL Low 18.0-38.0 [facility] Comment on above: Result Comment: PERF ORMED BY: [place] [address] PATHOLOGIST CROWN PERFORATOR OPERATOR HUY COX M.D. Performed By: #### C BC, CMP, PAB #### [address] Urine Cultureon 10-30-2021 Bacteria identified Cx Nom (U) ORGANISM: Escherichia coli (O:ESCCOL) [place] Count >100,000 Aerobic JOSE Charge (NUC86) SUSCEPTIBILITY [...] RESISTANT TO ALL B-LACTAM DRUGS. PERFORMED BY: [place] [address] PATHOLOGIST CROWN PERFORATOR OPERATOR HUY COX M.D. Normal [facility] Comment on above: Performed By: #### A DDONUAPLUS, [facility] #### [address] [facility] SARS-CoV-2 (COVID-19) RNA ADRIÁN+probe Ql (Unsp spec) Negative Normal Negative [facility] Comment on above: Order Comment: Healt hcare Worker?: N Result Comment: Testing for SARS-CoV-2 by RT-PCR This test was developed and its performance characteristics determined by [employer] and validated at the [facility]. This test has not been FDA [...] is terminated or revoked sooner. PERFORMED BY: [facility] [address] [place] [address] PATHOLOGIST CROWN PERFORATOR OPERATOR HUY COX M.D. Performed By: #### C OVID 19 [facility] #### [facility] [address] Clinical Event Note-Need for Hospital Bedon [...] of the lumbar region. Provider/Team Contact Info-Pager [phone] Electronic Signatures: Sharmin Guaman (TRASH COLLECTOR SUPERVISOR-SENIOR COST ANALYST) (Signed 02-Oct-2021 15:19) Authored: Clinical Event Note Last Updated: 02-Oct-2021 15:19 by Sharmin Guaman (TRASH COLLECTOR SUPERVISOR-SENIOR COST ANALYST) Normal [facility] Clinical Event Note-Need for wheel Chairon 10-02-2021 [...] home, can self propel or has a reservoir caretaker to provide assistance. Provider/Team Contact Info-Pager [phone] Electronic Signatures: Sharmin Guaman (TRASH COLLECTOR SUPERVISOR-SENIOR COST ANALYST) (Signed 02-Oct-2021 15:27) Authored: Clinical Event Note Last Updated: 02-Oct-2021 15:27 by Sharmin Guaman (TRASH COLLECTOR SUPERVISOR-SENIOR COST ANALYST) Normal [facility] Daily Progress Note-Neurosur geryon 10-02-2021 Daily Progress Note-Neurosurgery Service: Neurosurgery Subjective Data: MORALES LEE is a 46 year old Female who is Hospital Day # 18 and POD #11 for posterior L4-L5 decompression;posterior L4-L5 arthrodesis. Objective Data: Objective Information: T PRBPSpO2 [id number]/8397% Date/Time10/02 1: 1: 1: 1: 1:28 Range(36.2C [...] 2021 10:00 pm000 Oct 01, 2021 2:00 [id number] The Intake and Output Totals for the [...] the note. I personally evaluated the patient [id number] Electronic Signatures: Kenneth Philippe (Resident)) (Signed 02-Oct-2021 06:52) Authored: Service, Subjective Data, Objective Data, Assessment and Plan, Note Completion Lex Frederick) (Signed 02-Oct-2021 15:16) Authored: Note Completion Co-Signer: Service, Subjective Data, Objective Data, Assessment and Plan, Note Completion Last Updated: 02-Oct-2021 15:16 by Lex Frederick) [facility] Clinical Event Note-Discharg e discussionon 10-01-2021 Clinical Event Note-Discharge discussion Clinical Event: Clinical Event Note: TopicDischarge discussion Details Extensive conversation held at bedside with Dr. Fredercik (via the phone), patient and patient's , [place]. Patient given options to pursue Acute Rehab placement vs. Home with Home Health Care. Concerns regarding patient's mobility and PT/OT recommendations discussed. When given the options, decision made to pursue home health care. Both patient and express they feel patient will be safe at home and able to function in her home environment with [facility]. Ultimately, patient's allowed patient to make final decision regarding discharge. Will ensure HHC orders placed and hospital bed ordered. Will discuss with discharge team organizing transportation home given patient's post op pain and duration of trip. Electronic Signatures: Ambrocio Izaguirre (TRASH COLLECTOR SUPERVISOR-SENIOR COST ANALYST) (Signed 01-Oct-2021 17:11) Authored: Clinical Event Note Last Updated: 01-Oct-2021 17:11 by Ambrocio Izaguirre (TRASH COLLECTOR SUPERVISOR-SENIOR COST ANALYST) Normal [facility] Clinical Event Note-Need for hospital bedon 10-01-2021 [...] when lying flat. Electronic Signatures: Ambrocio Izaguirre (TRASH COLLECTOR SUPERVISOR-SENIOR COST ANALYST) (Signed 01-Oct-2021 14:48) Authored: Clinical Event Note Last Updated: 01-Oct-2021 14:48 by Ambrocio Izaguirre (TRASH COLLECTOR SUPERVISOR-SENIOR COST ANALYST) Normal [facility] Daily Progress Note-Neurosjudy leonidasgaurang 10-01-2021 Daily Progress Note-Neurosurgery Service: Neurosurgery Subjective Data: MORALES LEE is a 46 year old Female who is Hospital Day # 17 and POD #10 for posterior L4-L5 decompression;posterior L4-L5 arthrodesis. Objective Data: Objective Information: T PRBPSpO2 [id number]/7194% Date/Time10/01 0: 0: 0: 0:381 0:38 Range(35.6C - 36.8C ) (64 - 96 ) (16 - 19 ) (94 - 138 )/ (59 - 83 ) (92% - 94% ) Pain reported at 09/30 9:00: 2 = Mild ---- Intake and Output ----- Mn/Dy/Year TimeIntakeOutputNet Sep 29, 2021 10:00 [id number] Sep 29, 2021 2:00 [id number] Sep 29, 2021 6:00 am000 The Intake [...] Updated: 01-Oct-2021 10:29 by Lex Frederick) Normal [facility] Daily Progress Note-Neurosurgery This report has been cancelled. Normal [facility] Daily Progress Note-Neurosur leonidasyon 09-30-2021 Daily Progress Note-Neurosurgery Service: Neurosurgery Subjective Data: MORALES LEE is a 46 year old Female who is Hospital Day # 15 and POD #8 for posterior L4-L5 decompression;posterior L4-L5 arthrodesis. Objective Data: Objective Information: T PRBPSpO2 [id number]/7393% Date/Time09/29 16: 16: 16: 16: 16:00 Range(36C - 36.7C ) (67 - 86 ) (17 - 20 ) (94 - 153 )/ (15 - 113 ) (93% - 98% ) Pain reported at 09/29 9:56: 5 = Moderate ---- Intake and Output ----- Mn/Dy/Year TimeIntakeOutputNet Sep 29, 2021 2:00 [id number] Sep 29, 2021 6:00 am000 Sep 28, 2021 10:00 [id number] The Intake and Output Totals for the [...] the note. I personally evaluated the patient [id number] Electronic Signatures: Lex Frederick) (Signed 30-Sep-2021 11:18) Authored: Note Completion Co-Signer: Service, Subjective Data, Objective Data, Assessment and Plan, Note Completion Jaya Mosquera (Resident)) (Signed 30-Sep-2021 03:18) Authored: Service, Subjective Data, Objective Data, Assessment and Plan, Note Completion Last Updated: 30-Sep-2021 11:18 by Lex Frederick) [facility] Vjza-ao-yfxqrvpvy - co -tx /c OT to address multidiscipon 09-30-2021 Rehab Buur-be-uhpjevpip - co-tx /c OT to address multidiscip Rehab: Info: Disciplinephysical art therapy specialist Mode of Treatmentphysical therapy; co-treatment; co-tx /c OT to address multidisciplinary functional needs and maximize pt's safety. Time IN12:15 Time OUT12:55 Total Treatment [id number] Patient in ... at end of sessionbed, 3 railings up; alarm off; not on at start of visit Communicated with ... at end of sessionbedside nurse Patient Effortgood Symptoms Noted During/After Treatmentfatigue Treatment Considerations/CommentsExte nsive discussion /c amongst ANIMATION DIRECTOR, OT, and pt regarding her current physical [...] rolling right; rolling left; scooting/bridging Roll Left Randall (Bed Mobility)moderate assist (50% patient effort); 1 person assist; nonverbal cues (demo/gesture); verbal cues Roll Right Randall (Bed Mobility)moderate assist (50% patient effort); 1 person assist; nonverbal cues (demo/gesture); verbal cues Scoot/Bridge Randall (Bed Mobility)maximum assist (25% patient effort); 2 person assist; nonverbal cues (demo/gesture); verbal cues Ewsilb-od-Dnk Randall (Bed Mobility)maximum assist (25% patient effort); 2 person assist; nonverbal cues (demo/gesture); verbal cues Rmh-yt-Vaaqzn Randall (Bed Mobility)maximum assist (25% patient effort); 2 [...] Pt repositioned back to sitting EOB. Sit-Stand Randall (Transfers)dependent (less than 25% patient effort) Sit-Stand Assistive Device (Transfers)mechanical lift/aid Stand-Sit Randall (Transfers)dependent (less than 25% patient effort) Stand-Sit [...] Score8 Short Term Goals: Bed Mobility: Date [id number] Bed Mobility: Randall Level Goalminimum assist (75% patients effort) Bed Mobility: Physical Assist Level Goal1-person assist, verbal cues Bed Mobility: Time Frame for Goal2 wks Transfer: Established [id number] Transfer: Transfer Type Dxywzlk-az-yqpaz/chair-to-b ed; jqh-pj-htkap/gszra-gh-cnk Transfer: Randall Level Goalmoderate assist (50% patients effort) Transfer: Physical Assist Level Goal1-person assist; verbal cues Transfer: Assistive Device Goalrolling walker Transfer: Time Frame for Goal2 wks Gait: Established [id number] Gait: Randall Level Goalmoderate assist (50% patients (more content not included)... Normal [facility] Rehab Note-occupational therapist rehab manager apy - co-tx with PT to maximizeon 09-30-2021 Rehab Note-occupational therapy - co-tx with PT to maximize Rehab: Info: Disciplineoccupational therapist Mode of Treatmentoccupational therapy; co-tx with PT to maximize pt's mobility and safety. Time IN12:15 Time OUT12:55 Total Treatment [id number] Patient in ... at end of sessionbed, [...] ling right; rolling left; scooting/bridging Roll Left Randall (Bed Mobility)moderate assist (50% patient effort); 1 person assist; nonverbal cues (demo/gesture); verbal cues Roll Right Randall (Bed Mobility)moderate assist (50% patient effort); 1 person assist; nonverbal cues (demo/gesture); verbal cues Scoot/Bridge Randall (Bed Mobility)maximum assist (25% patient effort); 2 [...] lower body dressing; upper body dressing; bathing Randall Level (Bathing)set up; verbal cues; moderate assist (50% patient effort); 1 person assist Comment (Bathing)anticipated due to impaired balance, strength, and pain. Randall Level (Upper Body Dressing)set up; verbal cues; moderate assist (50% patient effort) Comment (Upper Body Dressing)anticipated due to impaired balance, strength, and pain. [place] Level (Lower Body Dressing)don; socks; dependent (less than 25% patient effort) Position (Lower Body Dressing)supine Randall Level (Grooming)modified independence Comment (Grooming)Pt observed applying Orajel to gums, able to manage packaging, cap un/screwing, and application. Randall Level (Feeding)modified independence Comment (Feeding)Pt able to retrieve OJ cup from tray table at R side, bring to mouth, and drink appropriately. Randall Level (Toileting)dependent (less than 25% patient effort); [...] Score15 Short Term Goals: Bed Mobility: Date [id number] Bed Mobility: Randall Level Goalcontact guard Bed Mobility: Physical Assist Level Goalset-up, verbal cues Bed Mobility: Time Frame for Goal2 wks Transfer: Established Transfer: Transfer Type Oyogckm-cx-ymuun/chair-to-b ed; qmi-mo-ptkfa/dnbjv-wa-vvm; toilet Transfer: Randall Level Goalminimum assist (75% patients effort) Transfer: Physical Assist Level Goalset-up; verbal cues; 1-person assist Transfer: Assistive Device GoalLRD Transfer: Time Frame for Goal2 wks Balance: Established [id number] Balance: Goal DetailsPt will perform ADL while reaching outside MADDIE and returning self to midline >8 minutes with set-up assist, SBA, and minimal verbal cues for safety. Enrique (more content not included)... Normal [facility] Daily Progress Note-Nuha stearns 09-29-2021 Daily Progress Note-Neurosurgery Service: Neurosurgery Subjective Data: MORALES LEE is a 46 year old Female who is Hospital Day # 14 and POD #7 for posterior L4-L5 decompression;posterior L4-L5 arthrodesis. Objective Data: Objective Information: T PRBPSpO2 [id number]/[id number]% Date/Time09/28 4: 8: 8: 8: 8:00 Range(36C [...] 2021 6:00 am000 Sep 27, 2021 10:00 [id number] Sep 27, 2021 2:00 [id number] The Intake and Output Totals for the last 24 hours are: IntakeOutputNet [id number] Physical Exam by System: Neurological: A&Ox3 RUE [...] the note. I personally evaluated the patient [id number] Electronic Signatures: Lex Frederick) (Signed 29-Sep-2021 09:23) Authored: Note Completion Co-Signer: Service, Subjective Data, Objective Data, Assessment and Plan, Note Completion Jaya Mosquera (Resident)) (Signed 29-Sep-2021 03:01) Authored: Service, Subjective Data, Objective Data, Assessment and Plan, Note Completion Last Updated: 29-Sep-2021 09:23 by Lex Frederick) [facility] Pusm-lz-qgkdyikru - co -tx /c OT to address multidiscipon 09-29-2021 Rehab Ueot-pi-ujddgooxc - co-tx /c OT to address multidiscip Rehab: Info: Disciplinephysical art therapy specialist Mode of Treatmentphysical therapy; co-treatment; co-tx /c OT to address multidisciplinary functional needs and maximize pt's safety. Time IN14:30 Time OUT15:40 Total Treatment [id number] Patient in ... at end of sessionbed, [...] to sit; sit to supine Roll Left Randall (Bed Mobility)maximum assist (25% patient effort); 2 person assist; verbal cues; nonverbal cues (demo/gesture) Roll Right Randall (Bed Mobility)maximum assist (25% patient effort); 2 person assist; verbal cues; nonverbal cues (demo/gesture) Scoot/Bridge Randall (Bed Mobility)maximum assist (25% patient effort); 2 person assist; nonverbal cues (demo/gesture); verbal cues Stolbm-uv-Skv Randall (Bed Mobility)maximum assist (25% patient effort); 2 person assist; nonverbal cues (demo/gesture); verbal cues Ipn-km-Plhgce Randall (Bed Mobility)verbal cues; nonverbal cues (demo/gesture); maximum [...] Pt repositioned back to sitting EOB. Sit-Stand Randall (Transfers)dependent (less than 25% patient effort) Sit-Stand Assistive Device (Transfers)mechanical lift/aid Stand-Sit Randall (Transfers)dependent (less than 25% patient effort) Stand-Sit [...] Score8 Short Term Goals: Bed Mobility: Date [id number] Bed Mobility: Randall Level Goalminimum assist (75% patients effort) Bed Mobility: Physical Assist Level Goal1-person assist, verbal cues Bed Mobility: Time Frame for Goal2 wks Transfer: Established Iycj77-Ozs-6755 Transfer: Transfer Type Orpftte-tj-yblwk/chair-to-b ed; ewc-vm-cfaga/xwvkw-bg-jgl Transfer: Randall Level Goalmoderate assist (50% patients effort) Transfer: Physical Assist Level Goal1-person assist; verbal cues Transfer: Assistive Device Goalrolling walker Transfer: Time Frame for Goal2 wks Gait: Established [id number] Gait: Randall Level Goalmoderate assist (50% patients effort) Gait: Physical Assist Level1-person assist; verbal cues Gait: Assistive Device Goalrolling walker Gait: Distance Goal15 feet Gait: Time Frame for Goal2 wks Balance: Established Wajt72-Jga-4589 Balance: Goal DetailsSitting EOB 20 minutes with 0-1 UE support, SBA for static sitting, CGA for dynamic. Standing 1 minute with FWW and CGA Education: Learnerpatient Topicrehab plan of care; discharge recommendations including destination and/or equipment Outcome Summary: Progress: Physical Therapyprogress towards functional goals is fair Outcome (more content not included)... Normal [facility] Rehab Note-occupational therapist rehab manager apy - co-tx with PT to maximizeon 09-29-2021 Rehab Note-occupational therapy - co-tx with PT to maximize Rehab: Info: Disciplineoccupational therapist Mode of Treatmentoccupational therapy; co-tx with PT to maximize pt's mobility and safety. Time IN14:30 Time OUT15:40 Total Treatment [id number] Patient in ... at end of sessionbed, [...] to sit; sit to supine Roll Left Randall (Bed Mobility)maximum assist (25% patient effort); 2 person assist; verbal cues; nonverbal cues (demo/gesture); multiple rolls to adjust harness Roll Right Randall (Bed Mobility)maximum assist (25% patient effort); 2 person assist; verbal cues; nonverbal cues (demo/gesture); multiple rolls to adjust harness Scoot/Bridge Randall (Bed Mobility)maximum assist (25% patient effort); 2 person assist; nonverbal cues (demo/gesture); verbal cues; boost HOB Oxyutc-fa-Wkr Randall (Bed Mobility)maximum assist (25% patient effort); 2 person assist; nonverbal cues (demo/gesture); verbal cues Qlr-rc-Hlrgax Randall (Bed Mobility)verbal cues; nonverbal cues (demo/gesture); maximum assist (25% patient effort); 2 person assist Assistive Device (Bed Mobility)draw sheet; bed rails Transfer Assessment/Interventionssit to stand transfer; stand to sit transfer Sit-Stand Randall (Transfers)dependent (less than 25% patient effort) Sit-Stand Assistive Device (Transfers)mechanical lift/aid; Faye Plus Stand-Sit Randall (Transfers)dependent (less than 25% patient effort) Stand-Sit Assistive Device (Transfers)mechanical lift/aid; Faye Plus Safety Issues Impacting Function (Mobility)awareness of need for assistance; insight into deficits/self awareness Impairments Impacting Function (Mobility)endurance/activit y tolerance; strength; balance; coordination; postural/trunk control ADL: BADL Assessment/Interventiontoil eting; feeding; grooming; lower body dressing; upper body dressing; bathing Randall Level (Bathing)set up; verbal cues; moderate assist (50% patient effort); 1 person assist Comment (Bathing)anticipated due to impaired balance, strength, and pain. Randall Level (Upper Body Dressing)set up; verbal cues; moderate assist (50% patient effort) Comment (Upper Body Dressing)anticipated due to impaired balance, strength, and pain. Randall Level (Lower Body Dressing)don; socks; dependent (less than 25% patient effort) Position (Lower Body Dressing)supine Randall Level (Grooming)set up; contact guard Comment (Grooming)anticipated due to impaired balance, strength, and pain. Randall Level (Feeding)set up; modified independence Comment (Feeding)anticipated Randall Level (Toileting)dependent (less than 25% patient effort); purewick Impairments, BADL Safety/Performancebalance; cognition; endurance/activity tolerance; strength; trunk/postural control Cognitive Impairments, BADL Safety/Performanceawareness , need for assistance; insight into deficits/self awareness; judgment; problem solving/reasoning Motor: Sitting, Static (Balance)good balance SBA Sitting, Dynamic (Balance)fair balance CGA Cbb-jr-Vlqbn (Balance)poor balance Total A via Faye Plus lift Standing, Static (Balance)poor balance Max A x1 - via Faye Plus Standing, Dynamic (Balance)unable to balance Balance ActivitiesPt sat EOB ~20 minutes throughout session primarily with SB (more content not included)... Normal [facility] Clinical Event Note-Medical Assessmenton 09-28-2021 Clinical Event [...] oil enema alternating with tap water enema [id number] - Bisacodyl suppository QHS Daily - Monitor [...] for wound check 10/07/21 at 10:15 am[facility] - F/U with Dr. [...] note 45 minutes; Electronic Signatures: Concetta Shi (TRASH COLLECTOR SUPERVISOR-SENIOR COST ANALYST) (Signed 28-Sep-2021 14:31) Authored: Clinical Event Note Last Updated: 28-Sep-2021 14:31 by Concetta Shi (TRASH COLLECTOR SUPERVISOR-SENIOR COST ANALYST) Normal [facility] Daily Progress Note-Gastroen terologyon 09-28-2021 Daily Progress Note-Gastroenterolog y Service: Gastroenterology Subjective Data: MORALES LEE is a 46 year old Female who is Hospital Day # 14 and POD #7 for posterior L4-L5 decompression;posterior L4-L5 arthrodesis. No events overnight. Had one bowel movement this am. Otherwise no complaints. Objective Data: Objective Information: T PRBPSpO2 [id number]/6993% Date/Time09/28 4:001 8: 8:001 8:001 8:00 Range(36C [...] 2021 6:00 am000 Sep 27, 2021 10:00 [id number] Sep 27, 2021 2:00 [id number] The Intake and Output Totals for the last 24 hours are: IntakeOutputNet [id number] Physical Exam by System: Constitutional: Constitutional: A&Ox3, [...] recommend tr (more content not included)... Normal [facility] Daily Progress Note-Neurosjudy stearns 09-28-2021 Daily Progress Note-Neurosurgery Service: Neurosurgery Subjective Data: MORALES LEE is a 46 year old Female who is Hospital Day # 14 and POD #7 for posterior L4-L5 decompression;posterior L4-L5 arthrodesis. Objective Data: Objective Information: T PRBPSpO2 [id number]/4893% Date/Time09/28 4: 4: 4: 4: 4:00 Range(36C - 36.6C ) (72 - 87 ) (15 - 22 ) (92 - 153 )/ (48 - 113 ) (92% - 99% ) As of 27-Sep-2021 22:00:00, patient is on 2 L/min of oxygen via nasal cannula. Pain reported at 09/27 22:00: 0 = None ---- Intake and Output ----- Mn/Dy/Year TimeIntakeOutputNet Sep 26, 2021 10:00 [id number] Sep 26, 2021 2:00 [id number] The Intake and Output Totals for the last 24 hours are: IntakeOutputNet [id number] Physical Exam by System: Neurological: A&Ox3 RUE [...] the note. I personally evaluated the patient [id number] Electronic Signatures: Fidel Maciel (Resident)) (Signed 28-Sep-2021 05:47) Authored: Service, Subjective Data, Objective Data, Assessment and Plan, Note Completion Lex Frederick) (Signed 28-Sep-2021 07:32) Authored: Note Completion Co-Signer: Service, Subjective Data, Objective Data, Assessment and Plan, Note Completion Last Updated: 28-Sep-2021 07:32 by Lex Frederick) Normal [facility] RENAL FUNCTION PANELon 09-28 Albumin [Mass/Vol] 3.1 g/dL Low 3.4 - 5.0 [facility] Comment on above: Performed By: #### R ENAL ####[id number] [place] [address] Anion gap [Moles/Vol] 17 mmol/L Normal 10 - 20 [facility] Comment on above: Performed By: #### R ENAL ####[id number] [place] [address] Calcium [Mass/Vol] 8.4 mg/dL Low 8.6 - 10.6 [facility] Comment on above: Performed By: #### R ENAL ####[id number] [place] [address] Chloride [Moles/Vol] 102 mmol/L Normal 98 - 107 [facility] Comment on above: Performed By: #### R ENAL ####[id number] [place] [address] Creatinine [Mass/Vol] 0.47 mg/dL Low 0.50 - 1.05 [facility] Comment on above: Performed By: #### R ENAL ####[id number] [place] [address] eGFR FEMALE >90 Normal >90 [facility] Comment on above: Result Comment: CALC ULATIONS OF ESTIMATED GFR ARE PERFORMED USING THE 2020 CKD-EPI STUDY REFIT EQUATION WITHOUT THE RACE VARIABLE FOR THE IDMS-TRACEABLE CREATININE METHODS. https://jasn.asnjournals.org/content/early//ASN.0160144 988 Performed By: #### R ENAL ####[id number] [place] [address] Glucose [Mass/Vol] 74 mg/dL Normal 74 - 99 [facility] Comment on above: Performed By: #### R ENAL ####[id number] [place] [address] HCO3 (Bld) [Moles/Vol] 27 mmol/L Normal 21 - 32 [facility] Comment on above: Performed By: #### R ENAL ####[id number] [place] [address] Phosphate [Mass/Vol] 3.4 mg/dL Normal 2.5 - 4.9 [facility] Comment on above: Result Comment: The performance characteristics of phosphorus testing in heparinized plasma have been validated by the individual laboratory site where testing is performed. Testing on heparinized plasma is not approved by the FDA; however, such approval is not necessary. Performed By: #### R ENAL ####[id number] [place] [address] Potassium [Moles/Vol] 3.7 mmol/L Normal 3.5 - 5.3 [facility] Comment on above: Performed By: #### R ENAL ####[id number] [place] [address] Sodium [Moles/Vol] 142 mmol/L Normal 136 - 145 [facility] Comment on above: Performed By: #### R ENAL ####[id number] [place] [address] Urea nitrogen [Mass/Vol] 6 mg/dL Normal 6 - 23 [facility] Comment on above: Performed By: #### R ENAL ####[id number] [place] [address] Radiologyon 09-28-2021 XR Abdomen AP Normal [facility]astroen [facility]ology-[place] [facility] Work Phone: Rehab Note-attemptedon 09-28 Rehab Note-attempted Rehab: Info: Disciplinephysical art therapy specialist Mode of Treatmentattempted Time IN15:30 Reason Treatment Not Performedpatient/family declined treatment, not feeling well Treatment Considerations/CommentsPt declined therapy at this time 2* increased fatigue, nausea. Pt stated NO! NO! NO! upon therapists arrival, even /c increased encouragement. Will reattempt as schedule allows. Short Term Goals: Bed Mobility: Date [id number]-[id number] Bed Mobility: Randall Level Goalminimum assist (75% patients effort) Bed Mobility: Physical Assist Level Goal1-person assist, verbal cues Bed Mobility: Time Frame for Goal2 wks Transfer: Established [id number]-Ubg-7212 Transfer: Transfer Type Cynqskg-ig-ipvmd/chair-to-b ed; ajl-es-dkqzz/kwkvn-je-ddy Transfer: Randall Level Goalmoderate assist (50% patients effort) Transfer: Physical Assist Level Goal1-person assist; verbal cues Transfer: Assistive Device Goalrolling walker Transfer: Time Frame for Goal2 wks Gait: Established [id number]-[id number]-7070 Gait: Randall Level Goalmoderate assist (50% patients effort) Gait: Physical Assist Level1-person assist; verbal cues Gait: Assistive Device Goalrolling walker Gait: Distance Goal15 feet Gait: Time Frame for Goal2 wks Balance: Established Sjur93-Fys-7885 Balance: Goal DetailsSitting EOB 20 minutes with 0-1 UE support, SBA for static sitting, CGA for dynamic. Standing 1 minute with FWW and CGA Electronic Signatures: Yosi Campbell (ANIMATION DIRECTOR) (Signed 28-Sep-2021 15:32) Entered: Short Term Goals, Info Authored: Info, Short Term Goals Boone Broussard (PT) (Signed 01-Oct-2021 09:01) Co-Signer: Short Term Goals, Info Last Updated: 01-Oct-2021 09:01 by Boone Broussard (PT) Normal [facility] Rehab Note-attempted Rehab: Info: Mode of Treatmentattempted [...] 28-Sep-2021 15:28 by Silvana Marshall (OT) Normal [facility] Renal Function Panelon 09-28 Albumin BCP dye [...] RACE VARIABLE FOR THE IDMS-TRACEABLE CREATININE METHODS.https://jasn.asnjournals.org/content/early/ASN .4278776433 TH ABDOMEN AP VIEWon 022 ABDOMEN AP VIEW Patient Name: MORALES LEE STUDY: ABDOMEN AP VIEW; 09/28/2021 1:22 pm INDICATION: Abd. dist. . COMPARISON: 09/27/2021 abdominal radiograph. ACCESSION NUMBER(S): [id number] ORDERING CLINICIAN: CONCETTA SHI FINDINGS: Two AP [...] as stated. This study was interpreted at [facility], [place], [place]. 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 Has been on scheduled bowel regimen with [...] penicillin: Unknown Objective: Objective Information: T PRBPSpO2 [id number]/93787% Date/Time09/27 4: 4: 4: 4:00 Range (76 [...] C6-7 ACDFF, (more content not included)... Normal [facility] Daily Progress Note-Neurosur jinny 09-27-2021 Daily Progress Note-Neurosurgery Service: Neurosurgery Subjective Data: MORALES LEE is a 46 year old Female who is Hospital Day # 13 and POD #6 for posterior L4-L5 decompression;posterior L4-L5 arthrodesis. Objective Data: Objective Information: T PRBPSpO2 [id number]/41856% Date/Time09/26 11:0809/27 4: 4: 4: 4:00 Range(37C [...] 2021 6:00 am000 Sep 26, 2021 10:00 [id number] Sep 26, 2021 2:00 [id number] The Intake and Output Totals for the last 24 hours are: IntakeOutputNet [id number] Physical Exam by System: Neurological: A&Ox3 RUE [...] the note. I personally evaluated the patient [id number] Electronic Signatures: Chaparro Umana (Resident)) (Signed 27-Sep-2021 06:11) Authored: Service, Subjective Data, Objective Data, Assessment and Plan, Note Completion Natalia Palacios) (Signed 08-Oct-2021 14:31) Authored: Note Completion Co-Signer: Service, Subjective Data, Objective Data, Assessment and Plan, Note Completion Last Updated: 08-Oct-2021 14:31 by Natalia Palacios) Normal [facility] MAGNESIUMon 09-27-2021 Magnesium [Mass/Vol] 1.80 mg/dL Normal 1.60 - 2.40 [facility] Comment on above: Performed By: #### C BC #### [facility] [id number] [place] [address] Magnesium, Serumon Magnesium [Mass/Vol] 1.80 mg/dL See Below MG-G astroen terology-[place] [facility] Work Phone: Comment on above: Reference Range: 1.6 0 - 2.40 RENAL FUNCTION PANELon 09-27 Albumin [Mass/Vol] 3.3 g/dL Low 3.4 - 5.0 [facility] Comment on above: Performed By: #### R ENAL #### [facility] [address] [place] [address] Anion gap [Moles/Vol] 17 mmol/L Normal 10 - 20 [facility] Comment on above: Performed By: #### R ENAL #### [facility] [address] [place] [address] Calcium [Mass/Vol] 8.5 mg/dL Low 8.6 - 10.6 [facility] Comment on above: Performed By: #### R ENAL #### [facility] [address] [place] [address] Chloride [Moles/Vol] 98 mmol/L Normal 98 - 107 [facility] Comment on above: Performed By: #### R ENAL #### [facility] [address] [place] [address] Creatinine [Mass/Vol] 0.44 mg/dL Low 0.50 - 1.05 [facility] Comment on above: Performed By: #### R ENAL #### [facility] [address] [place] [address] eGFR FEMALE >90 Normal >90 [facility] Comment on above: Result Comment: CALC ULATIONS OF ESTIMATED GFR ARE PERFORMED USING THE 2020 CKD-EPI STUDY REFIT EQUATION WITHOUT THE RACE VARIABLE FOR THE IDMS-TRACEABLE CREATININE METHODS. https://jasn.asnjournals.org/content/early/ASN.6012802 988 Performed By: #### R ENAL #### [facility] [address] [place] [address] Glucose [Mass/Vol] 91 mg/dL Normal 74 - 99 [facility] Comment on above: Performed By: #### R ENAL #### [facility] [address] [place] [address] HCO3 (Bld) [Moles/Vol] 26 mmol/L Normal 21 - 32 [facility] Comment on above: Performed By: #### R ENAL #### [facility] [address] [place] [address] Phosphate [Mass/Vol] 4.0 mg/dL Normal 2.5 - 4.9 [facility] Comment on above: Result Comment: The performance characteristics of phosphorus testing in heparinized plasma have been validated by the individual laboratory site where testing is performed. Testing on heparinized plasma is not approved by the FDA; however, such approval is not necessary. Performed By: #### R ENAL #### [facility] [address] [place] [address] Potassium [Moles/Vol] 4.1 mmol/L Normal 3.5 - 5.3 [facility] Comment on above: Performed By: #### R ENAL #### [facility] [address] [place] [address] Sodium [Moles/Vol] 137 mmol/L Normal 136 - 145 [facility] Comment on above: Performed By: #### R ENAL #### [facility] [address] [place] [address] Urea nitrogen [Mass/Vol] 6 mg/dL Normal - [facility] Comment on above: Performed By: #### R ENAL #### [facility] [address] [place] [address] Radiologyon 09-27-2021 XR Abdomen AP Normal MG-Gastroen [...] RACE VARIABLE FOR THE IDMS-TRACEABLE CREATININE METHODS.https://jasn.asnjournals.org/content//ASN .1792769348 ABDOMEN AP VIEWon 022 ABDOMEN AP VIEW Patient Name: MORALES LEE STUDY: ABDOMEN AP VIEW; 09/27/2021 2:33 am INDICATION: vomiting, constipation . COMPARISON: None. ACCESSION NUMBER(S): [id number] ORDERING CLINICIAN: FIDEL MACIEL FINDINGS: 2 AP [...] as stated. This study was interpreted at [place], [place]. Electronically signed by: DWIGHT MOY MD [facility] Daily Progress Note-Neurosur jinny 09-26-2021 Daily Progress Note-Neurosurgery Service: Neurosurgery Subjective Data: MORALES LEE is a 46 year old Female who is Hospital Day # 12 and POD #5 for posterior L4-L5 decompression;posterior L4-L5 arthrodesis. Objective Data: Objective Information: T PRBPSpO2 [id number]/8299% Date/Time09/25 17: 12: 17: 17:08 Range (68 - 98 ) (21 - 23 ) (118 - 136 )/ (69 - 82 ) (92% - 99% ) Pain reported at 09/26 3:00: sleeping ---- Intake and Output ----- Mn/Dy/Year TimeIntakeOutputNet Sep 24, 2021 10:00 [id number] Sep 24, 2021 2:00 [id number] Sep 24, 2021 6:00 [id number] The Intake and Output Totals for the last 24 hours are: IntakeOutputNet [id number] Physical Exam by System: Neurological: A&Ox3 RUE [...] the note. I personally evaluated the patient [id number] Electronic Signatures: Jaya Mosquera (Resident)) (Signed 26-Sep-2021 07:08) Authored: Service, Subjective Data, Objective Data, Assessment and Plan, Note Completion Natalia Palacios) (Signed 08-Oct-2021 14:10) Authored: Note Completion Co-Signer: Service, Subjective Data, Objective Data, Assessment and Plan, Note Completion Last Updated: 08-Oct-2021 14:10 by Natalia Palacios) Normal [facility] Clinical Event Note-POD 4 / Abdominal assessmenton [...] for wound check 10/07/21 at 10:15 am, [facility] 5th floor - F/U with Dr. Frederick 11/03/21 at 1400, [facility] - Patient fitted for PRAFO boots by [...] plan of care. Electronic Signatures: Concetta Shi (TRASH COLLECTOR SUPERVISOR-SENIOR COST ANALYST) (Signed 25-Sep-2021 13:30) Authored: Clinical Event Note Last Updated: 25-Sep-2021 13:30 by Concetta Shi (TRASH COLLECTOR SUPERVISOR-SENIOR COST ANALYST) Normal [facility] Daily Progress Note-Neurosjudy stearns 09-25-2021 Daily Progress Note-Neurosurgery Service: Neurosurgery Subjective Data: MORALES LEE is a 46 year old Female who is Hospital Day # 11 and POD #4 for posterior L4-L5 decompression;posterior L4-L5 arthrodesis. Objective Data: Objective Information: T PRBPSpO2 [id number]/6799% Date/Time09/24 16: 16: 16: 16:00 Range (68 - 78 ) (18 - 19 ) (102 - 117 )/ (57 - 73 ) (95% - 99% ) As of 24-Sep-2021 21:40:00, patient is on 2 L/min of oxygen via nasal cannula. Pain reported at 09/24 21:40: 8 = Severe ---- Intake and Output ----- Mn/Dy/Year TimeIntakeOutputNet Sep 23, 2021 10:00 [id number] Sep 23, 2021 6:00 [id number] The Intake and Output Totals for the last 24 hours are: IntakeOutputNet [id number] Physical Exam by System: Neurological: A&Ox3 RUE [...] the note. I personally evaluated the patient [id number] Electronic Signatures: Lex Frederick) (Signed 25-Sep-2021 11:57) Authored: Note Completion Co-Signer: Service, Subjective Data, Objective Data, Assessment and Plan, Note Completion Alfredo Hendrickson (Resident)) (Signed 25-Sep-2021 05:56) Authored: Service, Subjective Data, Objective Data, Assessment and Plan, Note Completion Last Updated: 25-Sep-2021 11:57 by Lex Frederick) [facility] Vrez-dx-izcbrehyc - co -tx /c OT to address multidiscipon 09-25-2021 Rehab Ucsr-ou-uiilsnxnw - co-tx /c OT to address multidiscip Rehab: Info: Disciplinephysical art therapy specialist Mode of Treatmentphysical therapy; co-treatment; co-tx /c OT to address multidisciplinary functional needs and maximize pt's safety. Time IN15:05 Time OUT15:59 Total Treatment [id number] Patient in ... at end of sessionbed, [...] scooting/bridging; rolling right; rolling left Roll Left Randall (Bed Mobility)maximum assist (25% patient effort); 2 person assist; verbal cues; nonverbal cues (demo/gesture) Roll Right Randall (Bed Mobility)maximum assist (25% patient effort); 2 person assist; verbal cues; nonverbal cues (demo/gesture) Scoot/Bridge Randall (Bed Mobility)maximum assist (25% patient effort); 2 person assist; nonverbal cues (demo/gesture); verbal cues Noffdy-nr-Uaw Randall (Bed Mobility)maximum assist (25% patient effort); 2 person assist; verbal cues; nonverbal cues (demo/gesture) Tpn-kw-Ldrply Randall (Bed Mobility)maximum assist (25% patient effort); 2 [...] unable to get to full standing. Sit-Stand Randall (Transfers)maximum assist (25% patient effort); verbal cues; nonverbal cues (demo/gesture); 2-3 persona assist Sit-Stand Assistive Device (Transfers)walker, front-wheeled Stand-Sit Randall (Transfers)maximum assist (25% patient effort); nonverbal cues [...] Score8 Short Term Goals: Bed Mobility: Date Aqfjmbncpbx49-Kve-1182 Bed Mobility: Randall Level Goalminimum assist (75% patients effort) Bed Mobility: Physical Assist Level Goal1-person assist, verbal cues Bed Mobility: Time Frame for Goal2 wks Transfer: Established Transfer: Transfer Type Kostykv-jj-vacrc/chair-to-b ed; mvy-ko-urxvc/ieofv-zv-ltt Transfer: Randall Level Goalmoderate assist (50% patients effort) Transfer: Physical Assist Level Goal1-person assist; verbal cues Transfer: Assistive Device Goalrolling walker Transfer: Time Frame for Goal2 wks Gait: Established Gait: Randall Level Goalmoderate assist (50% patients effort) Gait: [...] goals is gradual Electronic Signatures: Yosi Campbell (ANIMATION DIRECTOR) (Signed 25-Sep-2021 16:59) Entered: Outcome Summary, Short Term Goals, Sensory, TherEx, Outcomes Tools, Info, Mobility/Tone Authored: Short Term Goals, Outcome Summary, TherEx, Outcomes Tools, Info, Mobility/Tone, Sensory Boone Broussard (PT) (Signed 01-Oct-2021 09:01) Co-Signer: Outcome Summary, Short Term Goals, Sensory, TherEx (more content not included)... Normal [facility] Rehab Note-occupational therapist rehab manager apy - Partial co-tx with PT to tue09-25-2021 Rehab Note-occupational therapy - Partial co-tx with PT to Rehab: Info: Disciplineoccupational therapist Mode of Treatmentoccupational therapy; Partial co-tx with PT to maximize pt's mobility and safety. Time IN15:03 Time OUT15:56 Total Treatment [id number] Patient in ... at end of sessionbed, [...] sit to supine; rolling right Roll Left Randall (Bed Mobility)Pt required assist to bend BLE at knees and to initiate turn at shoulders and hips, verbal cues for grasp on bed rail, technique, direction follow, and encouragement.; set up; verbal cues; maximum assist (25% patient effort); 2 person assist Roll Right Randall (Bed Mobility)Pt required assist to bend BLE at knees and to initiate turn at shoulders and hips, verbal cues for grasp on bed rail, technique, direction follow, and encouragement.; set up; verbal cues; maximum assist (25% patient effort); 2 person assist Scoot/Bridge Randall (Bed Mobility)boost HOB; set up; verbal cues; maximum assist (25% patient effort); 2 person assist Zahzaa-zh-Lbt Randall (Bed Mobility)HOB elevated; set up; verbal cues; maximum assist (25% patient effort); 2 person assist Btd-vf-Kxldqj Randall (Bed Mobility)HOB elevated; set up; verbal cues; maximum assist (25% patient effort); 2 person assist Assistive Device (Bed Mobility)bed rails; draw sheet Transfer Assessment/Interventionssit to stand transfer Sit-Stand Randall (Transfers)set up; verbal cues; maximum assist (25% patient effort); x 2-3 assist Safety Issues Impacting Function (Mobility)ability to follow commands; awareness of need for assistance; insight into deficits/self awareness; judgment; problem solving Impairments Impacting Function (Mobility)balance; cognition; endurance/activity tolerance; pain; strength; postural/trunk control ADL: BADL Assessment/Interventiontoil eting; feeding; grooming; lower body dressing; upper body dressing; bathing Randall Level (Bathing)set up; verbal cues; moderate assist (50% patient effort); 1 person assist Comment (Bathing)anticipated due to impaired balance, strength, and pain. Randall Level (Upper Body Dressing)set up; verbal cues; moderate assist (50% patient effort) Comment (Upper Body Dressing)anticipated due to impaired balance, strength, and pain. Randall Level (Lower Body Dressing)don; socks; dependent (less than 25% patient effort) Position (Lower Body Dressing)supine Randall Level (Grooming)set up; contact guard Comment (Grooming)anticipated due to impaired balance, strength, and pain. Randall Level (Feeding)set up; modified independence Comment (Feeding)anticipated Randall Level (Toileting)dependent (less than 25% patient effort); purewick Impairments, BADL Safety/Performancebalance; cognition; endurance/activity tolerance; strength; trunk/postural control Cognitive Impairments, BADL Safety/Performanceawareness , need for assistance; insight into deficits/self awareness; judgment; problem solving/reasoning Motor: Sitting, Static (Balance)good balance SBA Sitting, Dynamic (Balance)fair balance CGA Cpr-uv-Ezfkk (Balance)poor balance Max A x 2-3 - attempted Standing, Static (Balance)unable to balance Standing, Dynamic (Balance)unable to balance Balance ActivitiesPt sat EOB ~30 minutes with SBA/CGA for safety. Pt demonstrated good sitting balance and trunk control. Pt attempted STS transfers 3x with (more content not included)... Normal [facility] Daily Progress Note-Nuha stearns 09-24-2021 Daily Progress Note-Neurosurgery Service: Neurosurgery Subjective Data: MORALES LEE is a 46 year old Female who is Hospital Day # 10 and POD #3 for posterior L4-L5 decompression;posterior L4-L5 arthrodesis. Objective Data: Objective Information: T PRBPSpO2 [id number]% Date/Time09/23 20:4809/23 20:4809/23 20:4809/23 20:4809/23 20:48 Range(35.5C - 36.1C ) (66 - 75 ) (16 - 19 ) (90 - 118 )/ (54 - 75 ) (98% - 99% ) As of 23-Sep-2021 22:43:00, patient is on 2 L/min of oxygen via nasal cannula. ---- Intake and Output ----- Mn/Dy/Year TimeIntakeOutputNet Sep 22, 2021 10:00 [id number] Sep 22, 2021 2:00 [id number] Sep 22, 2021 6:00 [id number] The Intake and Output Totals for the last 24 hours are: IntakeOutputNet [id number] Physical Exam by System: Neurological: A&Ox3 RUE [...] the note. I personally evaluated the patient [id number] Comments/ Additional Findings Doing well. Kyphotic posture and Back Pain from instability and traumatic chance fracture significantly improved as compared to preop. 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 Normal [facility] MAGNESIUMon 09-24-2021 Magnesium [Mass/Vol] 1.71 mg/dL Normal 1.60 - 2.40 [facility] Comment on above: Performed By: #### A FPA3 #### [facility] [address] [place] [address] Magnesium, Serumon Magnesium [Mass/Vol] 1.71 mg/dL See Below MG-G astroen terology-Rosendo moura 6 [facility] Work Phone: Comment on above: Reference Range: 1.6 0 - 2.40 RENAL FUNCTION PANELon 09-24 Albumin [Mass/Vol] 2.6 g/dL Low 3.4 - 5.0 [facility] Comment on above: Performed By: #### R ENAL ####[id number] [place] [address] Anion gap [Moles/Vol] 10 mmol/L Normal 10 - 20 [facility] Comment on above: Performed By: #### R ENAL ####[id number] [place] [address] Calcium [Mass/Vol] 7.7 mg/dL Low 8.6 - 10.6 [facility] Comment on above: Performed By: #### R ENAL ####[id number] [place] [address] Chloride [Moles/Vol] 108 mmol/L High 98 - 107 [facility] Comment on above: Performed By: #### R ENAL ####[id number] [place] [address] Creatinine [Mass/Vol] 0.39 mg/dL Low 0.50 - 1.05 [facility] Comment on above: Performed By: #### R ENAL ####[id number] [place] [address] eGFR FEMALE >90 Normal >90 [facility] Comment on above: Result Comment: CALC ULATIONS OF ESTIMATED GFR ARE PERFORMED USING THE 2020 CKD-EPI STUDY REFIT EQUATION WITHOUT THE RACE VARIABLE FOR THE IDMS-TRACEABLE CREATININE METHODS. https://jasn.asnjournals.org/content/early//ASN.9552740 988 Performed By: #### R ENAL ####[id number] [place] [address] Glucose [Mass/Vol] 92 mg/dL Normal 74 - 99 [facility] Comment on above: Performed By: #### R ENAL ####[id number] [place] [address] HCO3 (Bld) [Moles/Vol] 29 mmol/L Normal 21 - 32 [facility] Comment on above: Performed By: #### R ENAL ####[id number] [place] [address] Phosphate [Mass/Vol] 3.3 mg/dL Normal 2.5 - 4.9 [facility] Comment on above: Result Comment: The performance characteristics of phosphorus testing in heparinized plasma have been validated by the individual laboratory site where testing is performed. Testing on heparinized plasma is not approved by the FDA; however, such approval is not necessary. Performed By: #### R ENAL ####[id number] [place] [address] Potassium [Moles/Vol] 3.9 mmol/L Normal 3.5 - 5.3 [facility] Comment on above: Performed By: #### R ENAL ####[id number] [place] [address] Sodium [Moles/Vol] 143 mmol/L Normal 136 - 145 [facility] Comment on above: Performed By: #### R ENAL ####[id number] [place] [address] Urea nitrogen [Mass/Vol] 5 mg/dL Low 6 - 23 [facility] Comment on above: Performed By: #### R ENAL ####[id number] [place] [address] Rehab Note-attemptedon 09-24 Rehab Note-attempted Rehab: Info: Mode of Treatmentattempted Time IN15:00 Reason Treatment Not Performedpatient/family declined treatment; Pt declined participation in OT treatment stating she was on a very important call that she needed to take. Electronic Signatures: Silvana Marshall (OT) (Signed 24-Sep-2021 15:29) Authored: Info Last Updated: 24-Sep-2021 15:29 by Silvana Marshall (OT) Normal [facility] Rehab Note-physical therapyo n 09-24-2021 Rehab Note-physical [...] 24-Sep-2021 15:07 by Boone Broussard (PT) Normal [facility] Renal Function Panelon 09-24 Albumin BCP dye [...] RACE VARIABLE FOR THE IDMS-TRACEABLE CREATININE METHODS.https://jasn.asnjournals.org/content//ASN .7227376361 CBCon 09-23-2021 Erythrocyte distribution width (RBC) [Ratio] 13.1 % Normal 11.5 - 14.5 [facility] Comment on above: Performed By: #### C BC ####[id number] [place] [address] Hematocrit (Bld) [Volume fraction] 30.5 % Low 36.0 - 46.0 [facility] Comment on above: Performed By: #### C BC ####[id number] [place] [address] Hemoglobin (Bld) [Mass/Vol] 9.9 g/dL Low 12.0 - 16.0 [facility] Comment on above: Performed By: #### C BC ####[id number] [place] [address] MCHC (RBC) [Mass/Vol] 32.5 g/dL Normal 32.0 - 36.0 [facility] Comment on above: Performed By: #### C BC ####[id number] [place] [address] MCV (RBC) [Entitic vol] 92 fL Normal 80 - 100 [facility] Comment on above: Performed By: #### C BC ####[id number] [place] [address] NUCLEATED RBC 0.0 /100 WBC Normal 0.0-0.0 [facility] Comment on above: Performed By: #### C BC ####[id number] [place] [address] Platelets (Bld) [#/Vol] 244 10*3/uL Normal 150 - 450 [facility] Comment on above: Performed By: #### C BC ####[id number] [place] [address] RBC 3.33 x10E12/L Low 4.00 - 5.20 [facility] Comment on above: Performed By: #### C BC ####[id number] [place] [address] WBC (Bld) [#/Vol] 8.6 10*3/uL Normal 4.4 - 11.3 [facility] Comment on above: Performed By: #### C BC ####[id number] [place] [address] CBC AND DIFFERENTIALon 09-23 % AUTOMATED IMMATURE GRAN 0.4 % Normal 0.0 - 0.9 [facility] Comment on above: Result Comment: Jaleesa ture Granulocyte Count (IG) includes promyelocytes, myelocytes and metamyelocytes but does not include bands. Percent differential counts (%) should be interpreted in the context of the absolute cell counts (cells/L). Performed By: #### C BC #### [facility] [address] [place] [address] Basophils (Bld) [#/Vol] 0.03 10*3/uL Normal 0.00 - 0.10 [facility] Comment on above: Performed By: #### C BC #### [facility] [address] [place] [address] Basophils/100 WBC (Bld) 0.4 % Normal 0.0 - 2.0 [facility] Comment on above: Performed By: #### C BC #### [facility] [address] [place] [address] Eosinophils (Bld) [#/Vol] 0.27 10*3/uL Normal 0.00 - 0.70 [facility] Comment on above: Performed By: #### C BC #### [facility] [address] [place] [address] Eosinophils/100 WBC (Bld) 3.6 % Normal 0.0 - 6.0 [facility] Comment on above: Performed By: #### C BC #### [facility] [address] [place] [address] Erythrocyte distribution width (RBC) [Ratio] 13.2 % Normal 11.5 - 14.5 [facility] Comment on above: Performed By: #### C BC #### [facility] [address] [place] [address] Hematocrit (Bld) [Volume fraction] 30.9 % Low 36.0 - 46.0 [facility] Comment on above: Performed By: #### C BC #### [facility] [address] [place] [address] Hemoglobin (Bld) [Mass/Vol] 10.4 g/dL Low 12.0 - 16.0 [facility] Comment on above: Performed By: #### C BC #### [facility] [address] [place] [address] Lymphocytes (Bld) [#/Vol] 2.41 10*3/uL Normal 1.20 - 4.80 [facility] Comment on above: Performed By: #### C BC #### [facility] [address] [place] [address] Lymphocytes/100 WBC (Bld) 31.9 % Normal 13.0 - 44.0 [facility] Comment on above: Performed By: #### C BC #### [facility] [address] [place] [address] MCHC (RBC) [Mass/Vol] 33.7 g/dL Normal 32.0 - 36.0 [facility] Comment on above: Performed By: #### C BC #### [facility] [address] [place] [address] MCV (RBC) [Entitic vol] 91 fL Normal 80 - 100 [facility] Comment on above: Performed By: #### C BC #### [facility] [address] [place] [address] Monocytes (Bld) [#/Vol] 0.49 10*3/uL Normal 0.10 - 1.00 [facility] Comment on above: Performed By: #### C BC #### [facility] [address] [place] [address] Monocytes/100 WBC (Bld) 6.5 % Normal 2.0 - 10.0 [facility] Comment on above: Performed By: #### C BC #### [facility] [address] [place] [address] Neutrophils (Bld) [#/Vol] 4.32 10*3/uL Normal 1.20 - 7.70 [facility] Comment on above: Performed By: #### C BC #### [facility] [address] [place] [address] Neutrophils/100 WBC (Bld) 57.2 % Normal 40.0 - 80.0 [facility] Comment on above: Performed By: #### C BC #### [facility] [address] [place] [address] NUCLEATED RBC 0.0 /100 WBC Normal 0.0-0.0 [facility] Comment on above: Performed By: #### C BC #### [facility] [address] [place] [address] Platelets (Bld) [#/Vol] 228 10*3/uL Normal 150 - 450 [facility] Comment on above: Performed By: #### C BC #### [facility] [address] [place] [address] RBC 3.39 x10E12/L Low 4.00 - 5.20 [facility] Comment on above: Performed By: #### C BC #### [facility] [address] [place] [address] WBC (Bld) [#/Vol] 7.6 10*3/uL Normal 4.4 - 11.3 [facility] Comment on above: Performed By: #### C BC #### [facility] [address] [place] [address] Complete Blood Count + Diffe rentialon 01-19-2022 [...] [Mass/Vol] 1.68 mg/dL Normal 1.60 - 2.40 [facility] Comment on above: Performed By: #### C BC #### [facility] [address] [place] [address] Magnesium, Serumon Magnesium [Mass/Vol] 1.68 mg/dL See [...] (Advanced Practice Nurse) done by Ambrocio Izaguirre ([facility]) Discharge - Partial Reconciliation: 23-Sep-2021 13:21 by: Ambrocio Izaguirre ([facility]) Discharge - Partial Reconciliation: 24-Sep-2021 10:12 by: Ambrocio Izaguirre ([facility]) Discharge - Partial Reconciliation: 30-Sep-2021 14:12 by: Concetta Shi ([facility]) Discharge - Partial Reconciliation: 30-Sep-2021 14:14 by: Concetta Shi ([facility]) Discharge - Reconciliation: 30-Sep-2021 14:24 by: Concetta Shi ([facility]) Discharge - Reset to Incomplete: 02-Oct-2021 15:36 by: Ambrocio Izaguirre ([facility]) Discharge - Reconciliation: 02-Oct-2021 15:40 by: Ambrocio Izaguirre ([facility]) Discharge - Reset to Incomplete: 02-Oct-2021 15:57 by: Ambrocio Izaguirre ([facility]) Discharge - Reconciliation: 02-Oct-2021 15:58 by: Ambrocio Izaguirre ([facility]) Home Medications EnteredHOME MEDICATIONS AT DISCHARGE DateReconciliation [...] not required (more content not included)... Normal [facility] PATH REVIEW-IMMUNOHEMATOLOGY on 09-23-2021 PATH REV-IMMUNOHEMOTOL PETARNohemi Normal [facility] Comment on above: Result Comment: By h [...] PATIENT. Performed By: #### A FPA3 #### [facility] [address] [place] [address] RENAL FUNCTION PANELon 09-23 Albumin [Mass/Vol] 2.7 g/dL Low 3.4 - 5.0 [facility] Comment on above: Performed By: #### V FPA3 #### [facility] [address] [place] [address] Anion gap [Moles/Vol] 10 mmol/L Normal 10 - 20 [facility] Comment on above: Performed By: #### V FPA3 #### [facility] [address] [place] [address] Calcium [Mass/Vol] 7.9 mg/dL Low 8.6 - 10.6 [facility] Comment on above: Performed By: #### V FPA3 #### [facility] [address] [place] [address] Chloride [Moles/Vol] 108 mmol/L High 98 - 107 [facility] Comment on above: Performed By: #### V FPA3 #### [facility] [address] [place] [address] Creatinine [Mass/Vol] 0.39 mg/dL Low 0.50 - 1.05 [facility] Comment on above: Performed By: #### V FPA3 #### [facility] [address] [place] [address] eGFR FEMALE >90 Normal >90 [facility] Comment on above: Result Comment: CALC ULATIONS OF ESTIMATED GFR ARE PERFORMED USING THE 2020 CKD-EPI STUDY REFIT EQUATION WITHOUT THE RACE VARIABLE FOR THE IDMS-TRACEABLE CREATININE METHODS. https://jasn.asnjournals.org/content/early//ASN.3186163 988 Performed By: #### V FPA3 #### [facility] [address] [place] [address] Glucose [Mass/Vol] 87 mg/dL Normal 74 - 99 [facility] Comment on above: Performed By: #### V FPA3 #### [facility] [address] [place] [address] HCO3 (Bld) [Moles/Vol] 29 mmol/L Normal 21 - 32 [facility] Comment on above: Performed By: #### V FPA3 #### [facility] [address] [place] [address] Phosphate [Mass/Vol] 2.7 mg/dL Normal 2.5 - 4.9 [facility] Comment on above: Result Comment: The performance characteristics of phosphorus testing in heparinized plasma have been validated by the individual laboratory site where testing is performed. Testing on heparinized plasma is not approved by the FDA; however, such approval is not necessary. Performed By: #### V FPA3 #### [facility] [address] [place] [address] Potassium [Moles/Vol] 3.6 mmol/L Normal 3.5 - 5.3 [facility] Comment on above: Performed By: #### V FPA3 #### [facility] [address] [place] [address] Sodium [Moles/Vol] 143 mmol/L Normal 136 - 145 [facility] Comment on above: Performed By: #### V FPA3 #### [facility] [address] [place] [address] Urea nitrogen [Mass/Vol] 9 mg/dL Normal 6 - 23 [facility] Comment on above: Performed By: #### V FPA3 #### [facility] [address] [place] [address] Rehab Note-individual therap yon 09-23-2021 Rehab Note-individual therapy Rehab: Info: Disciplinephysical therapist Mode of Treatmentphysical therapy; individual therapy Time IN14:50 Time OUT15:29 Total Treatment [id number] Patient in ... at end of sessionbed, [...] sit to supine; rolling right Roll Left Randall (Bed Mobility)verbal cues; maximum assist (25% patient effort); 1 person assist Roll Right Randall (Bed Mobility)maximum assist (25% patient effort); verbal cues; 1 person assist Scoot/Bridge Randall (Bed Mobility)verbal cues; maximum assist (25% patient effort); 2 person assist; boost HOB Bmblnr-eq-Ahb Randall (Bed Mobility)verbal cues; maximum assist (25% patient effort); 1 person assist Rgq-lf-Uktgun Randall (Bed Mobility)set up; verbal cues; maximum assist (25% patient effort); 1 person assist Assistive Device (Bed Mobility)bed rails; draw sheet Transfer Assessment/Interventionssit to stand transfer; stand to sit transfer Sit-Stand Randall (Transfers)2 person assist; moderate assist (50% patient effort) Sit-Stand Assistive Device (Transfers)B arm-in-arm assist Stand-Sit Randall (Transfers)2 person assist; moderate assist (50% patient [...] 23-Sep-2021 15:50 by Boone Broussard (PT) Normal [facility] Renal Function Panelon 09-23 Albumin BCP dye [...] RACE VARIABLE FOR THE IDMS-TRACEABLE CREATININE METHODS.https://jasn.asnjournals.org/content/early//ASN .0986485162 ANTIBODY IDENT.on 09-22-2021 ANTIBODY IDENT. Anti-E Normal [facility] Comment on above: Performed By: #### V FPA3 #### [facility] [address] [place] [address] CBCon 09-22-2021 Erythrocyte distribution width (RBC) [Ratio] 13.2 % Normal 11.5 - 14.5 [facility] Comment on above: Performed By: #### V FPA3 #### [facility] [address] [place] [address] Hematocrit (Bld) [Volume fraction] 30.6 % Low 36.0 - 46.0 [facility] Comment on above: Performed By: #### V FPA3 #### [facility] [address] [place] [address] Hemoglobin (Bld) [Mass/Vol] 10.2 g/dL Low 12.0 - 16.0 [facility] Comment on above: Performed By: #### V FPA3 #### [facility] [address] [place] [address] MCHC (RBC) [Mass/Vol] 33.3 g/dL Normal 32.0 - 36.0 [facility] Comment on above: Performed By: #### V FPA3 #### [facility] [address] [place] [address] MCV (RBC) [Entitic vol] 91 fL Normal 80 - 100 [facility] Comment on above: Performed By: #### V FPA3 #### [facility] [address] [place] [address] NUCLEATED RBC 0.0 /100 WBC Normal 0.0-0.0 [facility] Comment on above: Performed By: #### V FPA3 #### [facility] [address] [place] [address] Platelets (Bld) [#/Vol] 215 10*3/uL Normal 150 - 450 [facility] Comment on above: Performed By: #### V FPA3 #### [facility] [address] [place] [address] RBC 3.37 x10E12/L Low 4.00 - 5.20 [facility] Comment on above: Performed By: #### V FPA3 #### [facility] [address] [place] [address] WBC (Bld) [#/Vol] 9.6 10*3/uL Normal 4.4 - 11.3 [facility] Comment on above: Performed By: #### V FPA3 #### [facility] [address] [place] [address] CBC AND DIFFERENTIALon 09-22 % AUTOMATED IMMATURE GRAN 0.4 % Normal 0.0 - 0.9 [facility] Comment on above: Result Comment: Jaleesa ture Granulocyte Count (IG) includes promyelocytes, myelocytes and metamyelocytes but does not include bands. Percent differential counts (%) should be interpreted in the context of the absolute cell counts (cells/L). Performed By: #### C BCDF ####[id number] [place] [address] Basophils (Bld) [#/Vol] 0.02 10*3/uL Normal 0.00 - 0.10 [facility] Comment on above: Performed By: #### C BCDF ####[id number] [place] [address] Basophils/100 WBC (Bld) 0.2 % Normal 0.0 - 2.0 [facility] Comment on above: Performed By: #### C BCDF ####[id number] [place] [address] Eosinophils (Bld) [#/Vol] 0.04 10*3/uL Normal 0.00 - 0.70 [facility] Comment on above: Performed By: #### C BCDF ####[id number] [place] [address] Eosinophils/100 WBC (Bld) 0.4 % Normal 0.0 - 6.0 [facility] Comment on above: Performed By: #### C BCDF ####[id number] [place] [address] Erythrocyte distribution width (RBC) [Ratio] 13.2 % Normal 11.5 - 14.5 [facility] Comment on above: Performed By: #### C BCDF ####[id number] [place] [address] Hematocrit (Bld) [Volume fraction] 30.6 % Low 36.0 - 46.0 [facility] Comment on above: Performed By: #### C BCDF ####[id number] [place] [address] Hemoglobin (Bld) [Mass/Vol] 10.3 g/dL Low 12.0 - 16.0 [facility] Comment on above: Performed By: #### C BCDF ####[id number] [place] [address] Lymphocytes (Bld) [#/Vol] 2.19 10*3/uL Normal 1.20 - 4.80 [facility] Comment on above: Performed By: #### C BCDF ####[id number] [place] [address] Lymphocytes/100 WBC (Bld) 19.9 % Normal 13.0 - 44.0 [facility] Comment on above: Performed By: #### C BCDF ####[id number] [place] [address] MCHC (RBC) [Mass/Vol] 33.7 g/dL Normal 32.0 - 36.0 [facility] Comment on above: Performed By: #### C BCDF ####[id number] [place] [address] MCV (RBC) [Entitic vol] 90 fL Normal 80 - 100 [facility] Comment on above: Performed By: #### C BCDF ####[id number] [place] [address] Monocytes (Bld) [#/Vol] 0.71 10*3/uL Normal 0.10 - 1.00 [facility] Comment on above: Performed By: #### C BCDF ####[id number] [place] [address] Monocytes/100 WBC (Bld) 6.5 % Normal 2.0 - 10.0 [facility] Comment on above: Performed By: #### C BCDF ####[id number] [place] [address] Neutrophils (Bld) [#/Vol] 7.98 10*3/uL High 1.20 - 7.70 [facility] Comment on above: Performed By: #### C BCDF ####[id number] [place] [address] Neutrophils/100 WBC (Bld) 72.6 % Normal 40.0 - 80.0 [facility] Comment on above: Performed By: #### C BCDF ####[id number] [place] [address] NUCLEATED RBC 0.0 /100 WBC Normal 0.0-0.0 [facility] Comment on above: Performed By: #### C BCDF ####[id number] [place] [address] Platelets (Bld) [#/Vol] 242 10*3/uL Normal 150 - 450 [facility] Comment on above: Performed By: #### C BCDF ####[id number] [place] [address] RBC 3.39 x10E12/L Low 4.00 - 5.20 [facility] Comment on above: Performed By: #### C BCDF ####[id number] [place] [address] WBC (Bld) [#/Vol] 11.0 10*3/uL Normal 4.4 - 11.3 [facility] Comment on above: Performed By: #### C BCDF ####[id number] [place] [address] Complete Blood Count + Diffe vidya 09-22-2021 [...] with at bedside. She is currently on ACCOUNT CLERK for pain, and reports being tired this [...] this time. Objective: Objective Information: T PRBPSpO2 [id number]/5792% Date/Time09/22 0:001/ 8:001 8:001/18 8:001/18 8:00 Range(36.3C [...] Fair. Medications: Continuous Medications ----- 1. HYDROmorphone ACCOUNT CLERK 25 mg/ NaCL 0.9% 50 mL: 2.6 mg/hr IV ACCOUNT CLERK 2. Sodium Chloride 0.9% Infusion: 1000 mL [...] from Suboxone (more content not included)... Normal [facility] Daily Progress Note-Nuha stearns 09-22-2021 Daily Progress Note-Neurosurgery Service: Neurosurgery Subjective Data: MORALES LEE Elena is a 46 year old Female who is Hospital Day # 8 and POD #1 for posterior L4-L5 decompression;posterior L4-L5 arthrodesis. Objective Data: Objective Information: T PRBPSpO2 [id number]/5895% Date/Time09/22 0:001 0:001 0:001 0:001 0:00 Range(36.2C - 36.8C ) (82 - 109 ) (12 - 20 ) (85 - 132 )/ (49 - 89 ) (94% - 100% ) As of 21-Sep-2021 17:00:00, patient is on 4 L/min of oxygen via nasal cannula. Pain reported at 09/21 16:33: 5 = Moderate ---- Intake and Output ----- Mn/Dy/Year TimeIntakeOutputNet Sep 20, 2021 10:00 [id number] Sep 20, 2021 6:00 [id number] The Intake and Output Totals for the last 24 hours are: IntakeOutputNet [id number] Physical Exam by System: Neurological: A&Ox3 RUE [...] Chronic pain recs- intra-op ketamine, meloxicam post-op, ACCOUNT CLERK until good PT eval, Suboxone as OP [...] the note. I personally evaluated the patient [id number] Electronic Signatures: Fidel Maciel (Resident)) (Signed 22-Sep-2021 00:35) Authored: Service, Subjective Data, Objective Data, Assessment and Plan, Note Completion Lex Frederick) (Signed 22-Sep-2021 10:31) Authored: Note Completion Co-Signer: Service, Subjective Data, Objective Data, Assessment and Plan, Note Completion Last Updated: 22-Sep-2021 10:31 by Lex Frederick) Normal [facility] Discharge [id number] 01-18-2 022 Discharge Profile2 Discharge Orders: Anticipated Discharge Date: Anticipated Discharge [id number] Problem List: Additional Dx: Spinal stenosis of [...] Please call your Neurosurgeon's office (Dr. Frederick [phone]) if you have any questions. -If you [...] or twist. Instead, bend at knees to machine pecan picker objects. Wound Care: Inspect your incision [...] taking Acetamin (more content not included)... Normal [facility] LACTATEon 09-22-2021 Lactate [Moles/Vol] 0.8 mmol/L Normal 0.4 - 2.0 [facility] Comment on above: Result Comment: Trina puncture immediately after or during the administration of Metamizole may lead to falsely low results. Testing should be performed immediately prior to Metamizole dosing. Performed By: #### C BC #### [facility] [address] [place] [address] Laboratory - Hematology and Cell countson 09-22-2021 [...] safety. Time IN10:50 Time OUT11:40 Total Treatment [id number] Patient in ... at end of sessionbed, 3 railings up; alarm on Communicated with ... at end of sessionbedside nurse Patient Effortgood Symptoms Noted During/After Treatmentfatigue; increased pain Patient Profile Reviewedyes Onset of Illness/Injury or Date of [id number] Reason for Referral-09/18/21: s/p exploration of spinal [...] EOB sitting. Pertinent History of Current Functional [age]hhvyzf25 y/o with hx of HTN, C6-7 ACDF, [...] TubesIV; triple lumen; telemetry; urethral catheter indwelling; ACCOUNT CLERK pump, DAVOL drain, wound vac O2 Deliverynasal cannula; 4L Pre Treatment Patient Positionsupine Pre Treatment Blood Pressure Plcxrixo74 mmHg Pre Treatment Diastolic (mm Hg)46 mmHg Pre Treatment Heart Rate (beats/min)67 Pre Treatment Respiratory Rate (breaths/min)19 Pre Treatment SpO2 (%)96 % Pre Treatment Oxygen Deliverysupplemental O2 Pre Treatment CommentsMAP 56 During Treatment Patient Positionsitting During Treatment Blood Pressure Wpmlmxto89 mmHg During Treatment Diastolic (mm Hg)77 mmHg [...] to sit; sit to supine Roll Left Randall (Bed Mobility)set up; verbal cues; 2 person assist; Pt required assist to bend BLE at (more content not included)... Normal [facility] PATH REVIEW-IMMUNOHEMATOLOGY on 09-22-2021 PATH REV-IMMUNOHEMOTOL ZURDO Normal [facility] Comment on above: Result Comment: By h [...] THIS PATIENT. Performed By: #### C #### [facility] [address] [place] [address] PT Evaluation [id number] t - co-treatment with OT to maxion 09-22-2021 PT Evaluation [id number]-[id number] - co-treatment with OT to maxi Rehab: Info: Mode of Treatmentphysical therapy; co-treatment; co-treatment with OT to maximize safety, mobility and ADL participation Time IN10:50 Time OUT11:40 Total Treatment [id number] Patient in ... at end of sessionbed, 3 railings up; alarm on Communicated with ... at end of sessionbedside nurse Patient Effortgood Symptoms Noted During/After Treatmentfatigue; increased pain Patient Profile Reviewedyes Onset of Illness/Injury or Date of [id number] Reason for Referral-09/18/21: s/p exploration of spinal [...] TubesIV; triple lumen; telemetry; urethral catheter indwelling; ACCOUNT CLERK pump, DAVOL drain, wound vac O2 Deliverynasal cannula; 4L Pre Treatment Patient Positionsupine Pre Treatment Blood Pressure Khgnljlh98 mmHg Pre Treatment Diastolic (mm Hg)46 mmHg Pre Treatment Heart Rate (beats/min)67 Pre Treatment SpO2 (%)96 % Pre Treatment Oxygen Deliverysupplemental O2 During Treatment Patient Positionsitting During Treatment Blood Pressure Qhhypdlr17 mmHg During Treatment Diastolic (mm Hg)77 mmHg [...] sit to supine; rolling right Roll Left Randall (Bed Mobility)verbal cues; 2 person assist; Pt required assist to bend BLE at knees and to initiate turn at shoulders and hips, verbal cues for grasp on bed rail, technique, direction follow, and encouragement.; maximum assist (25% patient effort) Roll Right Randall (Bed Mobility)2 person assist; maximum assist (25% patient effort); verbal cues Scoot/Bridge Randall (Bed Mobility)verbal cues; maximum assist (25% patient effort); 2 person assist; boost HOB Rgxrhc-jc-Qil Randall (Bed Mobility)verbal cues; maximum assist (25% patient effort); 1 person assist Out-wd-Pxmuye Randall (Bed Mobility)set up; verbal cues; maximum assist (25% patient effort); 1 person assist Assistive Device (Bed Mobility)bed rails; draw sheet Impairments Impacting Function (Mobility)balance; cognition; endurance/activity tolerance; pain; strength; postural/trunk control; motor control Motor: Sitting, Static (Balance)SBA Sitting, Dynamic (Balance)CGA Rlu-gt-Rszoo (Balance)MADELIN this visit. Pt hypotensive Sensory: Pre-Treatment Pain Rating7/10 Post-Treatment Pain Rating7/10 Comment, Pre/Post Treatment PainPt reported pain throughout buttocks and back, utilized ACCOUNT CLERK pump as needed. Pain LimitationFunctional mobility limited due pain; ADLs/IADLs limited due to pain; Participation limited by pain; RN or team was notified of limitations due to p (more content not included)... Normal [facility] RENAL FUNCTION PANELon 09-22 Albumin [Mass/Vol] 2.7 g/dL Low 3.4 - 5.0 [facility] Comment on above: Performed By: #### C #### [facility] [address] [place] [address] Anion gap [Moles/Vol] 10 mmol/L Normal 10 - 20 [facility] Comment on above: Performed By: #### C BC #### [facility] [address] [place] [address] Calcium [Mass/Vol] 7.8 mg/dL Low 8.6 - 10.6 [facility] Comment on above: Performed By: #### C BC #### [facility] [address] [place] [address] Chloride [Moles/Vol] 105 mmol/L Normal 98 - 107 [facility] Comment on above: Performed By: #### C BC #### [facility] [address] [place] [address] Creatinine [Mass/Vol] 0.49 mg/dL Low 0.50 - 1.05 [facility] Comment on above: Performed By: #### C BC #### [facility] [address] [place] [address] eGFR FEMALE >90 Normal >90 [facility] Comment on above: Result Comment: CALC ULATIONS OF ESTIMATED GFR ARE PERFORMED USING THE 2020 CKD-EPI STUDY REFIT EQUATION WITHOUT THE RACE VARIABLE FOR THE IDMS-TRACEABLE CREATININE METHODS. https://jasn.asnjournals.org/content//ASN.3114042 988 Performed By: #### C BC #### [facility] [address] [place] [address] Glucose [Mass/Vol] 93 mg/dL Normal 74 - 99 [facility] Comment on above: Performed By: #### C BC #### [facility] [address] [place] [address] HCO3 (Bld) [Moles/Vol] 29 mmol/L Normal 21 - 32 [facility] Comment on above: Performed By: #### C BC #### [facility] [address] [place] [address] Phosphate [Mass/Vol] 2.4 mg/dL Low 2.5 - 4.9 [facility] Comment on above: Result Comment: The performance characteristics of phosphorus testing in heparinized plasma have been validated by the individual laboratory site where testing is performed. Testing on heparinized plasma is not approved by the FDA; however, such approval is not necessary. Performed By: #### C BC #### [facility] [address] [place] [address] Potassium [Moles/Vol] 4.3 mmol/L Normal 3.5 - 5.3 [facility] Comment on above: Performed By: #### C BC #### [facility] [address] [place] [address] Sodium [Moles/Vol] 140 mmol/L Normal 136 - 145 [facility] Comment on above: Performed By: #### C BC #### [facility] [address] [place] [address] Urea nitrogen [Mass/Vol] 9 mg/dL Normal 6 - 23 [facility] Comment on above: Performed By: #### C BC #### [facility] [address] [place] [address] Renal Function Panelon 09-22 Albumin BCP dye [...] RACE VARIABLE FOR THE IDMS-TRACEABLE CREATININE METHODS.https://jasn.asnjournals.org/content/early//ASN .8712557412 UA MICROSCOPICon 09-22-2021 RBC 6 /HPF Abnormal 0-5 [facility] Comment on above: Performed By: #### C BC #### [facility] [address] [place] [address] SQUAMOUS EPITH. CELLS 1 /HPF Normal [facility] Comment on above: Performed By: #### C BC #### [facility] [address] [place] [address] WBC 8 /HPF Abnormal 0-5 [facility] Comment on above: Performed By: #### C BC #### [facility] [address] [place] [address] URINALYSIS WITH CULTURE IF I NDICATEDon 09-22-2021 Appearance (U) CLEAR Normal CLEAR [facility] Comment on above: Performed By: #### U ARFX ####[id number] [place] [address] Bilirubin Ql (U) Negative Normal NEGATIVE [facility] Comment on above: Performed By: #### U ARFX ####[id number] [place] [address] Color (U) SANDRA Normal STRAW,YELLO W [facility] Comment on above: Performed By: #### U ARFX ####[id number] [place] [address] Glucose Ql (U) Negative Normal NEGATIVE [facility] Comment on above: Performed By: #### U ARFX ####[id number] [place] [address] Hemoglobin Ql (U) Negative Normal NEGATIVE [facility] Comment on above: Performed By: #### U ARFX ####[id number] [place] [address] Ketones Ql (U) 20 (1+) Abnormal NEGATIVE [facility] Comment on above: Performed By: #### U ARFX ####[id number] [place] [address] Leukocyte esterase Test strip Ql (U) Negative Normal NEGATIVE [facility] Comment on above: Performed By: #### U ARFX ####[id number] [place] [address] Nitrite Ql (U) Negative Normal NEGATIVE [facility] Comment on above: Performed By: #### U ARFX ####[id number] [place] [address] pH (U) 5.0 [pH] Normal 5.0 - 8.0 [facility] Comment on above: Performed By: #### U ARFX ####[id number] [place] [address] Protein Ql (U) 30 (1+) Abnormal NEGATIVE [facility] Comment on above: Performed By: #### U ARFX ####[id number] [id number] Specific gravity (U) [Rel density] 1.040 High 1.005 - 1.035 [facility] Comment on above: Performed By: #### U ARFX ####[id number] [id number] Urobilinogen (U) [Mass/Vol] 2.0 mg/dL High 0.0 - 1.9 [facility] Comment on above: Result Comment: Due to [...] positive urobilinogen. Performed By: #### U ARFX ####[id number] [id number] Lab Specimen Source Normal [facility] Comment on above: Performed By: #### U ARFX ####[id number] [id number] Performed By: #### C BC #### [facility] [address] [place] [id number] Color (U) SANDRA See Below MG-Gastroen terology-Rosendo [...] CULTURE,BACTERIALon URINE CULTURE,BACTERIAL PATIENT: MORALES LEE LOCATION: [place] [id number] BILL#: [id number] : 71 AGE: SEX: F ORDERED BY: AMBROCIO IZAGUIRRE SOURCE: URINE COLLECTED: 09/22/21 12:59 ANTIBIOTICS AT [facility].: RECEIVED : 09/22/21 14:59 SITE: R E S U L T S URINE CULTURE,BACTERIAL FINAL 09/23/21 09:04 NO SIGNIFICANT GROWTH. Normal [facility] Comment on above: Performed By: #### C BC #### [facility] [address] [place] [address] Urinalysis, Microscopicon Urinalysis, Microscopic 1 {/HPF} MG-Gastroen terology-Rosendo lwell 6 [facility] Work Phone: Urinalysis, Microscopic 6 {/HPF} Abnormal 0-5 MG-Gastroen terology-[facility]endo [facility] 6 [facility] Work Phone: Urinalysis, Microscopic 8 {/HPF} Abnormal 0-5 MG-Gastroen terology-[facility]endo [facility] 6 [facility] Work Phone: Comment on above: SOURCE: CBCon 09-21-2021 Erythrocyte distribution width (RBC) [Ratio] 13.1 % Normal 11.5 - 14.5 [facility] Comment on above: Performed By: #### R ENAL #### [facility] [address] [place] [address] Hematocrit (Bld) [Volume fraction] 34.5 % Low 36.0 - 46.0 [facility] Comment on above: Performed By: #### R ENAL #### [facility] [address] [place] [address] Hemoglobin (Bld) [Mass/Vol] 11.4 g/dL Low 12.0 - 16.0 [facility] Comment on above: Performed By: #### R ENAL #### [facility] [address] [place] [address] MCHC (RBC) [Mass/Vol] 33.0 g/dL Normal 32.0 - 36.0 [facility] Comment on above: Performed By: #### R ENAL #### [facility] [address] [place] [address] MCV (RBC) [Entitic vol] 91 fL Normal 80 - 100 [facility] Comment on above: Performed By: #### R ENAL #### [facility] [address] [place] [address] NUCLEATED RBC 0.0 /100 WBC Normal 0.0-0.0 [facility] Comment on above: Performed By: #### R ENAL #### [facility] [address] [place] [address] Platelets (Bld) [#/Vol] 269 10*3/uL Normal 150 - 450 [facility] Comment on above: Performed By: #### R ENAL #### [facility] [address] [place] [address] RBC 3.81 x10E12/L Low 4.00 - 5.20 [facility] Comment on above: Performed By: #### R ENAL #### [facility] [address] [place] [address] WBC (Bld) [#/Vol] 14.6 10*3/uL High 4.4 - 11.3 [facility] Comment on above: Performed By: #### R ENAL #### [facility] [address] [place] [address] Erythrocyte distribution width (RBC) [Ratio] 13.2 % Normal 11.5 - 14.5 [facility] Comment on above: Performed By: #### R ENAL #### [facility] [address] [place] [address] Hematocrit (Bld) [Volume fraction] 35.8 % Low 36.0 - 46.0 [facility] Comment on above: Performed By: #### R ENAL #### [facility] [address] [place] [address] Hemoglobin (Bld) [Mass/Vol] 11.9 g/dL Low 12.0 - 16.0 [facility] Comment on above: Performed By: #### R ENAL #### [facility] [address] [place] [address] MCHC (RBC) [Mass/Vol] 33.2 g/dL Normal 32.0 - 36.0 [facility] Comment on above: Performed By: #### R ENAL #### [facility] [address] [place] [address] MCV (RBC) [Entitic vol] 91 fL Normal 80 - 100 [facility] Comment on above: Performed By: #### R ENAL #### [facility] [address] [place] [address] NUCLEATED RBC 0.0 /100 WBC Normal 0.0-0.0 [facility] Comment on above: Performed By: #### R ENAL #### [facility] [address] [place] [address] Platelets (Bld) [#/Vol] 215 10*3/uL Normal 150 - 450 [facility] Comment on above: Performed By: #### R ENAL #### [facility] [address] [place] [address] RBC 3.93 x10E12/L Low 4.00 - 5.20 [facility] Comment on above: Performed By: #### R ENAL #### [facility] [address] [place] [address] WBC (Bld) [#/Vol] 14.8 10*3/uL High 4.4 - 11.3 [facility] Comment on above: Performed By: #### R ENAL #### [facility] [address] [place] [address] Daily Progress Note-Nuha stearns 09-21-2021 Daily Progress Note-Neurosurgery Service: Neurosurgery Subjective Data: MORALES LEE is a 46 year old Female who is Hospital Day # 7 and POD #3 for 1. Exploration of spinal fusion;2. Reduction of L4/5 dislocation;2. L5-pelvis instrumented fusion with posterolateral arthrodesis;4. Extension of instrumentation with multiple kwame construct and side connectors. Objective Data: Objective Information: T PRBPSpO2 [id number]/8495% Date/Time09/20 15: 4: 4: 4: 4:00 Range(36.9C [...] sleeping ---- Intake and Output ----- Mn/Dy/[facility] Sep 19, 2021 10:00 [id number] Sep 19, 2021 6:00 [id number] The Intake and Output Totals for the last 24 hours are: [facility] [id number] Physical Exam by System: Neurological: A&Ox3 RUE [...] Chronic pain recs- intra-op ketamine, meloxicam post-op, ACCOUNT CLERK until good PT eval, Suboxone as OP [...] the following: I personally evaluated the patient [id number] Comments/ Additional Findings The patient has been [...] 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 Normal [facility] Laboratory - Blood bankon ABO group Nom [...] lumbar spine September 18, 2021 ACCESSION NUMBER(S): [id number]; [id number] ORDERING CLINICIAN: DEVANTE STARKS TECHNIQUE: Sagittal axial [...] Electronically signed by: NATALIA WALL, DO Normal [facility] NR MRI T-SPINE WOon 09-21-19 NR MRI T-SPINE WO Patient Name: MORALES LEE STUDY: MRI T-SPINE WO; MRI L-SPINE WO; 09/20/2021 10:40 pm; 09/20/2021 10:42 pm INDICATION: postop foot weakness, Lie Flat: Yes, Pre Med: No . COMPARISON: MRI December 24, [address] of the lumbar spine September 18, 2021 ACCESSION NUMBER(S): [id number]; [id number] ORDERING CLINICIAN: DEVANTE STARKS TECHNIQUE: Sagittal axial [...] S1-2. Electronically signed by: NATALIA WALL, Normal [facility] No Panel Informationon 09-21 0.0 {/100_WBC} 0.0-0.0 [...] Preop Checklist Preop Checklist: Preop Checklist: Arrival [id number] Arrival Time11:00 Procedure Typere-exploration of spine Temperature C36.2 degrees C Temperature F97.1 degrees F Heart Rate91 beats per minute Respiratory Rate18 breath per minute Blood Pressure Jfrcqnku348 mm/Hg Blood Pressure Xymreapco64 mm/Hg COVID 19 Results in Last 7 [...] 21-Sep-2021 11:17 by Linh Buchanan (RN) Normal [facility] REQUEST-LEUKOREDUCED RED ANJU LSon 09-21-2021 REQUEST-LEUKOREDUCED RED CELLS ORDER RECD Normal [facility] Comment on above: Performed By: #### A FPA3 #### [facility] [address] [place] [id number] TYPE + SCREENon 09-21-2021 ABO TYPE O Normal [facility] Comment on above: Performed By: #### A FPA3 #### [facility] [address] [place] [id number] RH TYPE Positive Normal [facility] Comment on above: Performed By: #### A FPA3 #### [facility] [address] [place] [id number] ABO TYPE Canceled Normal [facility] Comment on above: Order Comment: VENECIA ESPINO, 09/21/2021 05:08TEST TYPE + SCREEN WAS CANCELLED, 09/21/2021 05:06 NO PHLEB ID ON TUBE. Result Comment: EULA ESPINO, 09/21/2021 05:08 Performed By: #### A FPA3 #### [facility] [address] [place] [id number] RH TYPE Canceled Normal [facility] Comment on above: Order Comment: VENECIA ESPINO, 09/21/2021 05:08TEST TYPE + SCREEN WAS CANCELLED, 09/21/2021 05:06 NO PHLEB ID ON TUBE. Result Comment: CALL ED RN AFSANEH ESPINO, 09/21/2021 05:08 Performed By: #### A FPA3 #### [facility] [address] [place] [address] CBCon 09-20-2021 Erythrocyte distribution width (RBC) [Ratio] 13.2 % Normal 11.5 - 14.5 [facility] Comment on above: Performed By: #### C BC #### [facility] [address] [place] [address] Hematocrit (Bld) [Volume fraction] 30.8 % Low 36.0 - 46.0 [facility] Comment on above: Performed By: #### C BC #### [facility] [address] [place] [address] Hemoglobin (Bld) [Mass/Vol] 9.8 g/dL Low 12.0 - 16.0 [facility] Comment on above: Performed By: #### C BC #### [facility] [address] [place] [address] MCHC (RBC) [Mass/Vol] 31.8 g/dL Low 32.0 - 36.0 [facility] Comment on above: Performed By: #### C BC #### [facility] [address] [place] [address] MCV (RBC) [Entitic vol] 93 fL Normal 80 - 100 [facility] Comment on above: Performed By: #### C BC #### [facility] [address] [place] [address] NUCLEATED RBC 0.0 /100 WBC Normal 0.0-0.0 [facility] Comment on above: Performed By: #### C BC #### [facility] [address] [place] [address] Platelets (Bld) [#/Vol] 224 10*3/uL Normal 150 - 450 [facility] Comment on above: Performed By: #### C BC #### [facility] [address] [place] [address] RBC 3.32 x10E12/L Low 4.00 - 5.20 [facility] Comment on above: Performed By: #### C BC #### [facility] [address] [place] [address] WBC (Bld) [#/Vol] 12.1 10*3/uL High 4.4 - 11.3 [facility] Comment on above: Performed By: #### C BC #### [facility] [address] [place] [address] Daily Progress Note-Neurosur leonidasyon 09-20-2021 Daily Progress Note-Neurosurgery Service: Neurosurgery Subjective Data: MORALES LEE is a 46 year old Female who is Hospital Day # 6 and POD #2 for 1. Exploration of spinal fusion;2. Reduction of L4/5 dislocation;2. L5-pelvis instrumented fusion with posterolateral arthrodesis;4. Extension of instrumentation with multiple kwame construct and side connectors. Objective Data: Objective Information: T PRBPSpO2 Value36.2121447/5095% Date/Time09/19 16: 1:341 16: 1:341 1:34 Range(36.7C - 36.7C ) (84 - 110 ) (18 - 18 ) (82 - 118 )/ (50 - 97 ) (94% - 97% ) As of 19-Sep-2021 08:00:00, patient is on 2 L/min of oxygen via nasal cannula. ---- Intake and Output ----- Mn/Dy/Year TimeIntakeOutputCaromont Health Sep 18, 2021 10:00 [id number] The Intake and Output Totals for the [...] chronic pain recs- intra-op ketamine, meloxicam post-op, ACCOUNT CLERK until good PT eval, Suboxone as OP [...] Updated: 21-Sep-2021 11:28 by Perez Carlisle) Normal [facility] Laboratory - Hematology and Cell countson 09-20-2021 [...] 20-Sep-2021 12:25 by Carole Carlos (OT) Normal [facility] PT Evaluation v2-attemptedon 09-20-2021 PT Evaluation v2-attempted Rehab: Info: Mode of Treatmentattempted Time IN12:00 Evaluation Not PerformedPer RN pt not appropriate for therapy, pt continues to have low BP and plan to receive blood, will hold and reattempt as appropriate Electronic Signatures: Kaykay Yoo (PT) (Signed 20-Sep-2021 12:42) Authored: Info Last Updated: 20-Sep-2021 12:42 by Kaykay Yoo (PT) Normal [facility] REQUEST-LEUKOREDUCED RED ANJU LSon 09-20-2021 REQUEST-LEUKOREDUCED RED CELLS ORDER RECD Normal [facility] Comment on above: Performed By: #### R ENAL #### [facility] [address] [place] [address] CBCon 09-19-2021 Erythrocyte distribution width (RBC) [Ratio] 12.4 % Normal 11.5 - 14.5 [facility] Comment on above: Performed By: #### R ENAL #### [facility] [address] [place] [address] Hematocrit (Bld) [Volume fraction] 38.3 % Normal 36.0 - 46.0 [facility] Comment on above: Performed By: #### R ENAL #### [facility] [address] [place] [address] Hemoglobin (Bld) [Mass/Vol] 13.4 g/dL Normal 12.0 - 16.0 [facility] Comment on above: Performed By: #### R ENAL #### [facility] [address] [place] [address] MCHC (RBC) [Mass/Vol] 35.0 g/dL Normal 32.0 - 36.0 [facility] Comment on above: Performed By: #### R ENAL #### [facility] [address] [place] [address] MCV (RBC) [Entitic vol] 85 fL Normal 80 - 100 [facility] Comment on above: Performed By: #### R ENAL #### [facility] [address] [place] [address] NUCLEATED RBC 0.0 /100 WBC Normal 0.0-0.0 [facility] Comment on above: Performed By: #### R ENAL #### [place] [id number] [place] [address] Platelets (Bld) [#/Vol] 326 10*3/uL Normal 150 - 450 [facility] Comment on above: Performed By: #### R ENAL #### [facility] [address] [place] [address] RBC 4.51 x10E12/L Normal 4.00 - 5.20 [facility] Comment on above: Performed By: #### R ENAL #### [facility] [address] [place] [address] WBC (Bld) [#/Vol] 20.5 10*3/uL High 4.4 - 11.3 [facility] Comment on above: Performed By: #### R ENAL #### [facility] [address] [place] [address] CBC AND DIFFERENTIALon 09-19 % AUTOMATED IMMATURE GRAN 0.6 % Normal 0.0 - 0.9 [facility] Comment on above: Result Comment: Jaleesa ture Granulocyte Count (IG) includes promyelocytes, myelocytes and metamyelocytes but does not include bands. Percent differential counts (%) should be interpreted in the context of the absolute cell counts (cells/L). Performed By: #### V FPA3 #### [facility] [address] [place] [address] Basophils (Bld) [#/Vol] 0.03 10*3/uL Normal 0.00 - 0.10 [facility] Comment on above: Performed By: #### V FPA3 #### [facility] [address] [place] [address] Basophils/100 WBC (Bld) 0.1 % Normal 0.0 - 2.0 [facility] Comment on above: Performed By: #### V FPA3 #### [facility] [address] [place] [address] Eosinophils (Bld) [#/Vol] 0.01 10*3/uL Normal 0.00 - 0.70 [facility] Comment on above: Performed By: #### V FPA3 #### [facility] [address] [place] [address] Eosinophils/100 WBC (Bld) 0.0 % Normal 0.0 - 6.0 [facility] Comment on above: Performed By: #### V FPA3 #### [facility] [address] [place] [address] Erythrocyte distribution width (RBC) [Ratio] 12.9 % Normal 11.5 - 14.5 [facility] Comment on above: Performed By: #### V FPA3 #### [facility] [address] [place] [address] Hematocrit (Bld) [Volume fraction] 38.3 % Normal 36.0 - 46.0 [facility] Comment on above: Performed By: #### V FPA3 #### [facility] [address] [place] [address] Hemoglobin (Bld) [Mass/Vol] 12.7 g/dL Normal 12.0 - 16.0 [facility] Comment on above: Performed By: #### V FPA3 #### [facility] [address] [place] [address] Lymphocytes (Bld) [#/Vol] 2.89 10*3/uL Normal 1.20 - 4.80 [facility] Comment on above: Performed By: #### V FPA3 #### [facility] [address] [place] [address] Lymphocytes/100 WBC (Bld) 13.5 % Normal 13.0 - 44.0 [facility] Comment on above: Performed By: #### V FPA3 #### [facility] [address] [place] [address] MCHC (RBC) [Mass/Vol] 33.2 g/dL Normal 32.0 - 36.0 [facility] Comment on above: Performed By: #### V FPA3 #### [facility] [address] [place] [address] MCV (RBC) [Entitic vol] 89 fL Normal 80 - 100 [facility] Comment on above: Performed By: #### V FPA3 #### [facility] [address] [place] [address] Monocytes (Bld) [#/Vol] 1.23 10*3/uL High 0.10 - 1.00 [facility] Comment on above: Performed By: #### V FPA3 #### [facility] [address] [place] [address] Monocytes/100 WBC (Bld) 5.7 % Normal 2.0 - 10.0 [facility] Comment on above: Performed By: #### V FPA3 #### [facility] [address] [place] [address] Neutrophils (Bld) [#/Vol] 17.16 10*3/uL High 1.20 - 7.70 [facility] Comment on above: Performed By: #### V FPA3 #### [facility] [address] [place] [address] Neutrophils/100 WBC (Bld) 80.1 % Normal 40.0 - 80.0 [facility] Comment on above: Performed By: #### V FPA3 #### [facility] [address] [place] [address] NUCLEATED RBC 0.0 /100 WBC Normal 0.0-0.0 [facility] Comment on above: Performed By: #### V FPA3 #### [facility] [address] [place] [address] Platelets (Bld) [#/Vol] 401 10*3/uL Normal 150 - 450 [facility] Comment on above: Performed By: #### V FPA3 #### [facility] [address] [place] [address] RBC 4.28 x10E12/L Normal 4.00 - 5.20 [facility] Comment on above: Performed By: #### V FPA3 #### [facility] [address] [place] [address] WBC (Bld) [#/Vol] 21.5 10*3/uL High 4.4 - 11.3 [facility] Comment on above: Performed By: #### V FPA3 #### [facility] [address] [place] [address] COAGULATION SCREENon 022 aPTT Coag (Bld) [Time] 29 s Normal 26 - 39 [facility] Comment on above: Result Comment: Note new reference range as of 08/04/2021 at 10:00am. Performed By: #### R ENAL #### [facility] [address] [place] [address] PT Coag (PPP) [Time] 11.5 s Normal 9.8 - 13.4 [facility] Comment on above: Result Comment: Note new reference range as of 08/04/2021 at 10:00am. Performed By: #### R ENAL #### [facility] [address] [place] [address] PT, INR 1.0 Normal 0.9 - 1.1 [facility] Comment on above: Performed By: #### R RASHAD #### [facility] [address] [place] [address] Complete Blood Count + Diffe vidya 09-19-2021 [...] 0.6 % 0.0 - 0.9 MG-Gastroen terology-[facility] I Work Phone: Comment on above: [...] connectors. Objective Data: Objective Information: T PRBPSpO2 Value36.25992766/8596% Date/Time09/18 17: 17: 17: 17: 17:40 Range(36.4C [...] ----- Mn/Dy/Year TimeIntakeOutputNet Sep 17, 2021 10:00 [id number] The Intake and Output Totals for the last 24 hours are: IntakeOutputNet [id number] Physical Exam by System: Neurological: A&Ox3 RUE D5, B5, T5, HG5, IO5 LUE D4+, B4+, T4+, HG4+, IO5 RLE HF 4+, KE4+, PF5, DF5 (pain limited) LLE HF 4-, KE4-, PF4, DF5 Recent Lab Results: Results: Recent Arterial Blood Gas Results 09/18/2021 11:48 [id number] 24 h range: ( 219 - 224 ) pH7.44 24 h range: ( 7.44 - 7.45 ) [id number] 24 h range: ( 37 - 40 ) WT8079 24 h range: ( 100 - 100 ) Base Excess2.8 24 h range: ( 1.8 - 2.8 ) Ppsvfhdvdwr38.2 24 h range: ( 25.7 - 27.2 [...] the note. I personally evaluated the patient [id number] Comments/ Additional Findings Patients postoperative CT scan [...] Assessment an (more content not included)... Normal [facility] Laboratory - Coagulationon 0 09-19-2021 aPTT Coag [...] [Mass/Vol] 1.59 mg/dL Low 1.60 - 2.40 [facility] Comment on above: Performed By: #### R ENAL #### [facility] [address] [place] [address] PT Evaluation v2-attemptedon 09-19-2021 PT Evaluation v2-attempted Rehab: Info: Mode of Treatmentattempted Time IN11:37 Time OUT11:50 Total Treatment [id number] Evaluation Not PerformedHistory obtained, BP assessed in supine 79/54mmHg, RN notified and redone with 71/51mmHg, will hold PT eval at this time and reattempt as medically appropriate Electronic Signatures: Kaykay Yoo (PT) (Signed 19-Sep-2021 12:14) Authored: Info Last Updated: 19-Sep-2021 12:14 by Kaykay Yoo (PT) Normal [facility] RENAL FUNCTION PANELon 09-19 Albumin [Mass/Vol] 3.4 g/dL Normal 3.4 - 5.0 [facility] Comment on above: Performed By: #### A FPA3 #### [facility] [address] [place] [address] Anion gap [Moles/Vol] 18 mmol/L Normal 10 - 20 [facility] Comment on above: Performed By: #### A FPA3 #### [facility] [address] [place] [address] Calcium [Mass/Vol] 8.3 mg/dL Low 8.6 - 10.6 [facility] Comment on above: Performed By: #### A FPA3 #### [facility] [address] [place] [address] Chloride [Moles/Vol] 100 mmol/L Normal 98 - 107 [facility] Comment on above: Performed By: #### A FPA3 #### [facility] [address] [place] [address] Creatinine [Mass/Vol] 0.60 mg/dL Normal 0.50 - 1.05 [facility] Comment on above: Performed By: #### A FPA3 #### [facility] [address] [place] [address] eGFR FEMALE >90 Normal >90 [facility] Comment on above: Result Comment: CALC ULATIONS OF ESTIMATED GFR ARE PERFORMED USING THE 2020 CKD-EPI STUDY REFIT EQUATION WITHOUT THE RACE VARIABLE FOR THE IDMS-TRACEABLE CREATININE METHODS. https://jasn.asnjournals.org/content/early/ASN.5614249 988 Performed By: #### A FPA3 #### [facility] [address] [place] [address] Glucose [Mass/Vol] 82 mg/dL Normal 74 - 99 [facility] Comment on above: Performed By: #### A FPA3 #### [facility] [address] [place] [address] HCO3 (Bld) [Moles/Vol] 26 mmol/L Normal 21 - 32 [facility] Comment on above: Performed By: #### A FPA3 #### [facility] [address] [place] [address] Phosphate [Mass/Vol] 2.8 mg/dL Normal 2.5 - 4.9 [facility] Comment on above: Result Comment: The performance characteristics of phosphorus testing in heparinized plasma have been validated by the individual laboratory site where testing is performed. Testing on heparinized plasma is not approved by the FDA; however, such approval is not necessary. Performed By: #### A FPA3 #### [facility] [address] [place] [address] Potassium [Moles/Vol] 4.5 mmol/L Normal 3.5 - 5.3 [facility] Comment on above: Performed By: #### A FPA3 #### [facility] [address] [place] [address] Sodium [Moles/Vol] 139 mmol/L Normal 136 - 145 [facility] Comment on above: Performed By: #### A FPA3 #### [facility] [address] [place] [address] Urea nitrogen [Mass/Vol] 9 mg/dL Normal 6 - 23 [facility] Comment on above: Performed By: #### A FPA3 #### [facility] [address] [place] [address] Albumin [Mass/Vol] 3.6 g/dL Normal 3.4 - 5.0 [facility] Comment on above: Performed By: #### R ENAL #### [facility] [address] [place] [address] Anion gap [Moles/Vol] 13 mmol/L Normal 10 - 20 [facility] Comment on above: Performed By: #### R ENAL #### [facility] [address] [place] [address] Calcium [Mass/Vol] 8.9 mg/dL Normal 8.6 - 10.6 [facility] Comment on above: Performed By: #### R ENAL #### [facility] [address] [place] [address] Chloride [Moles/Vol] 100 mmol/L Normal 98 - 107 [facility] Comment on above: Performed By: #### R ENAL #### [facility] [address] [place] [address] Creatinine [Mass/Vol] 0.51 mg/dL Normal 0.50 - 1.05 [facility] Comment on above: Performed By: #### R ENAL #### [facility] [address] [place] [address] eGFR FEMALE >90 Normal >90 [facility] Comment on above: Result Comment: CALC ULATIONS OF ESTIMATED GFR ARE PERFORMED USING THE 2020 CKD-EPI STUDY REFIT EQUATION WITHOUT THE RACE VARIABLE FOR THE IDMS-TRACEABLE CREATININE METHODS. https://jasn.asnjournals.org/content//ASN.5536850 988 Performed By: #### R ENAL #### [facility] [address] [place] [address] Glucose [Mass/Vol] 123 mg/dL High 74 - 99 [facility] Comment on above: Performed By: #### R ENAL #### [facility] [address] [place] [address] HCO3 (Bld) [Moles/Vol] 28 mmol/L Normal 21 - 32 [facility] Comment on above: Performed By: #### R ENAL #### [facility] [address] [place] [address] Phosphate [Mass/Vol] 2.8 mg/dL Normal 2.5 - 4.9 [facility] Comment on above: Result Comment: The performance characteristics of phosphorus testing in heparinized plasma have been validated by the individual laboratory site where testing is performed. Testing on heparinized plasma is not approved by the FDA; however, such approval is not necessary. Performed By: #### R ENAL #### [facility] [address] [place] [address] Potassium [Moles/Vol] 4.3 mmol/L Normal 3.5 - 5.3 [facility] Comment on above: Performed By: #### R ENAL #### [facility] [address] [place] [address] Sodium [Moles/Vol] 137 mmol/L Normal 136 - 145 [facility] Comment on above: Performed By: #### R ENAL #### [facility] [address] [place] [address] Urea nitrogen [Mass/Vol] 8 mg/dL Normal 6 - 23 [facility] Comment on above: Performed By: #### R ENAL #### [facility] [address] [place] [address] Renal Function Panelon 09-19 Albumin BCP dye [...] RACE VARIABLE FOR THE IDMS-TRACEABLE CREATININE METHODS.https://jasn.asnjournals.org/content/early/ASN .[id number] ANTIBODY IDENT.on 09-18-2021 ANTIBODY IDENT. Anti-E Normal [facility] Comment on above: Performed By: #### A FPA3 #### [facility] [address] [place] [address] ARTERIAL FULL PANELon 2021 Anion gap [Moles/Vol] 5 mmol/L Low 10 - 25 [facility] Comment on above: Performed By: #### A FPA3 ####[id number] [place] [address] BASE EXCESS-BLOOD 2.8 mmol/L Normal -2.0 - 3.0 [facility] Comment on above: Performed By: #### A FPA3 ####[id number] [place] [address] BICARB, CALCULATED 27.2 mmol/L High 22.0 - 26.0 [facility] Comment on above: Performed By: #### A FPA3 ####[id number] [place] [address] CALCIUM,IONIZED 1.20 mmol/L Normal 1.10 - 1.33 [facility] Comment on above: Performed By: #### A FPA3 ####[id number] [place] [address] Chloride [Moles/Vol] 106 mmol/L Normal 98 - 107 [facility] Comment on above: Performed By: #### A FPA3 ####[id number] [place] [address] Glucose [Mass/Vol] 149 mg/dL High 74 - 99 [facility] Comment on above: Performed By: #### A FPA3 ####[id number] [place] [address] Hematocrit (Bld) [Volume fraction] 38.0 % Normal 36.0 - 46.0 [facility] Comment on above: Performed By: #### A FPA3 ####[id number] [place] [address] HGB,CALCULATED 12.9 g/dL Normal 12.0 - 16.0 [facility] Comment on above: Performed By: #### A FPA3 ####[id number] [place] [address] Lactate [Moles/Vol] 0.9 mmol/L Normal 0.4 - 2.0 [facility] Comment on above: Performed By: #### A FPA3 ####[id number] [place] [address] Oxygen (Bld) [Partial pressure] 219 mm[Hg] High 85 - 95 [facility] Comment on above: Performed By: #### A FPA3 ####[id number] [place] [address] PATIENT TEMPERATURE 37.0 degrees C Normal [facility] Comment on above: Result Comment: NOTE : PATIENT RESULTS ARE NOT CORRECTED FOR TEMPERATURE. Performed By: #### A FPA3 ####[id number] [place] [address] PCO2 40 mmHg Normal 38 - 42 [facility] Comment on above: Performed By: #### A FPA3 ####[id number] [place] [address] pH (Bld) 7.44 [pH] High 7.38 - 7.42 [facility] Comment on above: Performed By: #### A FPA3 ####[id number] [place] [address] Potassium [Moles/Vol] 4.4 mmol/L Normal 3.5 - 5.3 [facility] Comment on above: Performed By: #### A FPA3 ####[id number] [place] [address] SO2 100 % Normal 94 - 100 [facility] Comment on above: Performed By: #### A FPA3 ####[id number] [place] [address] Sodium [Moles/Vol] 134 mmol/L Low 136 - 145 [facility] Comment on above: Performed By: #### A FPA3 ####[id number] [place] [address] Anion gap [Moles/Vol] 7 mmol/L Low 10 - 25 [facility] Comment on above: Performed By: #### A FPA3 #### [facility] [address] [place] [address] BASE EXCESS-BLOOD 1.8 mmol/L Normal -2.0 - 3.0 [facility] Comment on above: Performed By: #### A FPA3 #### [facility] [address] [place] [address] BICARB, CALCULATED 25.7 mmol/L Normal 22.0 - 26.0 [facility] Comment on above: Performed By: #### A FPA3 #### [facility] [address] [place] [address] CALCIUM,IONIZED 1.20 mmol/L Normal 1.10 - 1.33 [facility] Comment on above: Performed By: #### A FPA3 #### [facility] [address] [place] [address] Chloride [Moles/Vol] 105 mmol/L Normal 98 - 107 [facility] Comment on above: Performed By: #### A FPA3 #### [facility] [address] [place] [address] Glucose [Mass/Vol] 174 mg/dL High 74 - 99 [facility] Comment on above: Performed By: #### A FPA3 #### [facility] [address] [place] [address] Hematocrit (Bld) [Volume fraction] 37.0 % Normal 36.0 - 46.0 [facility] Comment on above: Performed By: #### A FPA3 #### [facility] [address] [place] [address] HGB,CALCULATED 12.6 g/dL Normal 12.0 - 16.0 [facility] Comment on above: Performed By: #### A FPA3 #### [facility] [address] [place] [address] Lactate [Moles/Vol] 1.1 mmol/L Normal 0.4 - 2.0 [facility] Comment on above: Performed By: #### A FPA3 #### [facility] [address] [place] [address] Oxygen (Bld) [Partial pressure] 224 mm[Hg] High 85 - 95 [facility] Comment on above: Performed By: #### A FPA3 #### [facility] [address] [place] [address] PATIENT TEMPERATURE 37.0 degrees C Normal [facility] Comment on above: Result Comment: NOTE : PATIENT RESULTS ARE NOT CORRECTED FOR TEMPERATURE. Performed By: #### A FPA3 #### [facility] [address] [place] [address] PCO2 37 mmHg Low 38 - 42 [facility] Comment on above: Performed By: #### A FPA3 #### [facility] [address] [place] [address] pH (Bld) 7.45 [pH] High 7.38 - 7.42 [facility] Comment on above: Performed By: #### A FPA3 #### [facility] [address] [place] [address] Potassium [Moles/Vol] 3.9 mmol/L Normal 3.5 - 5.3 [facility] Comment on above: Performed By: #### A FPA3 #### [facility] [address] [place] [address] SO2 100 % Normal 94 - 100 [facility] Comment on above: Performed By: #### A FPA3 #### [facility] [address] [place] [address] Sodium [Moles/Vol] 134 mmol/L Low 136 - 145 [facility] Comment on above: Performed By: #### A FPA3 #### [facility] [address] [place] [address] CT L Spine without Contrasto n 09-18-2021 [...] connectors. Objective Data: Objective Information: T PRBPSpO2 [id number]/4391% Date/Time09/18 6:041 5: 5: 5: 5:56 Range(37C [...] Recent Arterial Blood Gas Results 09/18/2021 11:48 [id number] 24 h range: ( 219 - 224 ) pH7.44 24 h range: ( 7.44 - 7.45 ) bTN738 24 h range: ( 37 - 40 ) [id number] 24 h range: ( 100 - 100 ) Base Excess2.8 24 h range: ( 1.8 - 2.8 ) Nhqpboblogl39.2 24 h range: ( 25.7 - 27.2 ) Assessment and Plan: Code Status: Code StatusFull Code Electronic Signatures: Bryan Mora) (Signed 18-Sep-2021 14:47) Authored: Service, Subjective Data, Objective Data, Assessment and Plan, Note Completion Last Updated: 18-Sep-2021 14:47 by Bryan Mora) Normal [facility] Daily Progress Note-Neurosur jinny 09-18-2021 Daily Progress Note-Neurosurgery Service: Neurosurgery Subjective Data: MORALES LEE is a 46 year old Female who is Hospital Day # 4. Objective Data: Objective Information: T PRBPSpO2 [id number]/4391% Date/Time09/18 6: 5: 5: 5: 5:56 Range(36.6C [...] ----- Mn/Dy/Year TimeIntakeOutputNet Sep 17, 2021 10:00 [id number] Sep 17, 2021 2:00 [id number] The Intake and Output Totals for the [...] the note. I personally evaluated the patient [id number] Electronic Signatures: Fidel Maciel (Resident)) (Signed 18-Sep-2021 06:55) Authored: Service, Subjective Data, Objective Data, Assessment and Plan, Note Completion Lex Frederick) (Signed 19-Sep-2021 10:18) Authored: Note Completion Co-Signer: Service, Subjective Data, Objective Data, Assessment and Plan, Note Completion Last Updated: 19-Sep-2021 10:18 by Lex Frederick) Normal [facility] Laboratory - Chemistry and C hemistry - [...] dated 10/07/2020. MRI dated 12/11/2020 ACCESSION NUMBER(S): [id number] ORDERING CLINICIAN: ANGELO JUAREZ TECHNIQUE: Thin cut [...] as stated. This study was interpreted at [facility], [place], [place]. Electronically signed by: BOONE LAO MD Normal [facility] No Panel Informationon 09-18 0.0 {/100_WBC} 0.0-0.0 [...] Respiratory Rate15 breath per minute Blood Pressure Rxbksqhx81 mm/Hg Blood Pressure Hlbbluedg10 mm/Hg COVID 19 Results in Last 7 [...] 18-Sep-2021 06:59 by Lian Zuleta (SANAZ) Normal [facility] Radiologyon 09-18-2021 XR Chest Single view Normal [...] RACE VARIABLE FOR THE IDMS-TRACEABLE CREATININE METHODS.https://jasn.asnjournals.org/content/early//ASN .[id number] TH CHEST; 1 VIEWon 2 TH CHEST; 1 VIEW Patient Name: MORALES LEE STUDY: CHEST; 1 VIEW; 09/18/2021 2:38 pm INDICATION: s/p central line placement (right IJ double lumen) . COMPARISON: Radiograph dated 09/15/2021 ACCESSION NUMBER(S): [id number] ORDERING CLINICIAN: BRYAN MORA FINDINGS: Right IJ [...] Electronically signed by: LORELEI JOHNSTON MD Normal [facility] VENOUS FULL PANELon 09-18-19 22 Anion gap [Moles/Vol] 6 mmol/L Low 10 - 25 [facility] Comment on above: Performed By: #### V FPA3 #### [facility] [address] [place] [address] BASE EXCESS-BLOOD 3.9 mmol/L High -2.0 - 3.0 [facility] Comment on above: Performed By: #### V FPA3 #### [facility] [address] [place] [address] BICARB, CALCULATED 28.5 mmol/L High 22.0 - 26.0 [facility] Comment on above: Performed By: #### V FPA3 #### [facility] [address] [place] [address] CALCIUM,IONIZED 1.17 mmol/L Normal 1.10 - 1.33 [facility] Comment on above: Performed By: #### V FPA3 #### [facility] [address] [place] [address] Chloride [Moles/Vol] 103 mmol/L Normal 98 - 107 [facility] Comment on above: Performed By: #### V FPA3 #### [facility] [address] [place] [address] Glucose [Mass/Vol] 188 mg/dL High 74 - 99 [facility] Comment on above: Performed By: #### V FPA3 #### [facility] [address] [place] [address] Hematocrit (Bld) [Volume fraction] 39.0 % Normal 36.0 - 46.0 [facility] Comment on above: Performed By: #### V FPA3 #### [facility] [address] [place] [address] HGB,CALCULATED 13.3 g/dL Normal 12.0 - 16.0 [facility] Comment on above: Performed By: #### V FPA3 #### [facility] [address] [place] [address] Lactate [Moles/Vol] 1.2 mmol/L Normal 0.4 - 2.0 [facility] Comment on above: Performed By: #### V FPA3 #### [facility] [address] [place] [address] Oxygen (Bld) [Partial pressure] 56 mm[Hg] High 35 - 45 [facility] Comment on above: Performed By: #### V FPA3 #### [facility] [address] [place] [address] PATIENT TEMPERATURE 37.0 degrees C Normal [facility] Comment on above: Result Comment: NOTE : PATIENT RESULTS ARE NOT CORRECTED FOR TEMPERATURE. Performed By: #### V FPA3 #### [facility] [address] [place] [address] PCO2 42 mmHg Normal 41 - 51 [facility] Comment on above: Performed By: #### V FPA3 #### [facility] [address] [place] [address] pH (Bld) 7.44 [pH] High 7.33 - 7.43 [facility] Comment on above: Performed By: #### V FPA3 #### [facility] [address] [place] [address] Potassium [Moles/Vol] 4.1 mmol/L Normal 3.5 - 5.3 [facility] Comment on above: Performed By: #### V FPA3 #### [facility] [address] [place] [address] SO2 91 % High 45 - 75 [facility] Comment on above: Performed By: #### V FPA3 #### [facility] [address] [place] [address] Sodium [Moles/Vol] 133 mmol/L Low 136 - 145 [facility] Comment on above: Performed By: #### V FPA3 #### [facility] [address] [place] [address] CORONAVIRUS 2019, SCREEN ASY MPTOMATICon 09-17-2021 SARS-CoV-2 (COVID-19) RNA ADRIÁN+probe Ql (Unsp spec) Not detected Normal Not Detected [facility] Comment on above: Result Comment: . This test has received FDA Emergency Use Authorization (EUA) and has been verified by [facility] ([facility]). This test is only authorized for the duration of time that circumstances exist to justify the authorization of the emergency use of in vitro diagnostic tests for the detection of SARS-CoV-2 virus and/or diagnosis of COVID-19 infection under section 564(b)(1) of the Act, 21 U.S.C. 360bbb-3(b)(1), unless the authorization is terminated or revoked sooner. [facility] is certified under CLIA-88 as qualified to perform high complexity testing. Testing is performed in the [facility] located at [address] [place] [address]. SARS-CoV-2/Flu/RSV Multiplex Test: Fact sheet for providers: https://www.fda.gov/media/915688/download Fact sheet for patients: https://www.fda.gov/media/995145/download Performed By: #### C OVSC ####[id number] [place] [address] Lab Specimen Source Nasal, Nasopharyngeal Normal [facility] Comment on above: Performed By: #### C OVSC ####[id number] [place] [address] Coronavirus 2019 RNA by PCR, Screening Asymptomticon 09-17-2021 Coronavirus 2019 RNA by PCR, Screening Asymptomtic Not detected Normal See Below [facility]-Gastroen terology-[facility] Work Phone: Comment on above: SOURCE: Nasal, Nasop haryngealReference Range: Not Detected.This test has received FDA Emergency Use Authorization (EUA) and has been verified by [facility] ([facility]). This test is only authorized for the duration of time that circumstances exist to justify the authorization of the emergency use of in vitro diagnostic tests for the detection of SARS-CoV-2 virus and/or diagnosis of COVID-19 infection under section 564(b)(1) of the Act, 21 U.S.C. 360bbb-3(b)(1), unless the authorization is terminated or revoked sooner. [facility] is certified under CLIA-88 as qualified to perform high complexity testing. Testing is performed in the [facility] located at [address] [place] [address].SARS-CoV-2/Flu/RSV Multiplex Test: Fact sheet for providers: https://www.fda.gov/media/050469/downloadFact sheet for patients: https://www.fda.gov/media/759092/download Covid 19 Resultson 2 SARS-CoV-2 (COVID-19) RNA [...] You may also be contacted by the [facility] to see if any of your close [...] or Naproxen (Aleve) can also be used. Jaea-laf-lzhzwfo cough and cold medicines can be used according to the instructions on the package. Some vfbh-cie-cllzffs medicines also contain acetaminophen. 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 Avoid touching your eyes, nose, and mouth [...] 24 mariella (more content not included)... Normal [facility] Daily Progress Note - Psychi atryon 09-17-2021 [...] pain but found it well-controlled on Dilaudid ACCOUNT CLERK and 5/10 mg oxycodone. Pt is interested [...] he has been working (cardoza at a [employer]), but she looks forward to his arrival [...] her suboxone. Objective: Objective Information: T PRBPSpO2 Value36.65154256/9095% Date/Time09/17 4: 10: 10: 10: 10:00 Range(35.7C - 36.6C ) (81 - 89 ) (10 - 23 ) (73 - 117 )/ (43 - 90 ) (91% - 96% ) As of 17-Sep-2021 08:00:00, patient is on 3 L/min of oxygen via nasal cannula. Pain reported at 09/17 8:00: 8 = Severe ---- Intake and Output ----- Mn/Dy/Year TimeIntakeOutunm [facility] Sep 17, 2021 6:00 [id number] Sep 16, 2021 2:00 [id number] The Intake and Output Totals for the last 24 hours are: IntakeOutputNet [id number] Mental Status Exam: General: Awake, lying in [...] a Da (more content not included)... Normal [facility] Daily Progress Note-Neurosur jinny 09-17-2021 Daily Progress Note-Neurosurgery Service: Neurosurgery Subjective Data: MORALES LEE is a 46 year old Female who is Hospital Day # 3. Objective Data: Objective Information: T PRBPSpO2 Value35.6804077/4393% Date/Time09/16 18: 18:5409/16 18:5409/16 18: 18:54 Range(35.7C - 36.4C ) (81 - 91 ) (15 - 24 ) (87 - 118 )/ (43 - 84 ) (91% - 96% ) As of 16-Sep-2021 18:54:00, patient is on 2 L/min of oxygen via nasal cannula. Pain reported at 09/16 16:34: 10 = Severe ---- Intake and Output ----- Mn/Dy/[facility] Sep 16, 2021 2:00 [id number] Physical Exam by System: Neurological: A&Ox3 RUE [...] the note. I personally evaluated the patient [id number] Comments/ Additional Findings I again explained to [...] Updated: 19-Sep-2021 10:16 by Lex Frederick) Normal [facility] HCG,URINEon 09-17-2021 Beta HCG ( test) Ql (U) Negative Normal Negative [facility] Comment on above: Performed By: #### A FPA3 #### [facility] [address] [place] [address] Laboratory - Blood bankon ABO group Nom [...] 09-17-2021 REQUEST-LEUKOREDUCED RED CELLS ORDER RECD Normal [facility] Comment on above: Performed By: #### O GROUP LEADER SEMICONDUCTOR PROCESSING #### [facility] [address] [place] [address] TYPE + SCREENon 09-17-2021 ABO TYPE O Normal [facility] Comment on above: Performed By: #### T +S #### [facility] [address] [place] [address] RH TYPE Positive Normal [facility] Comment on above: Performed By: #### T +S #### [facility] [address] [place] [address] Urine Teston 09-17 HCG ( test) Ql (U) Negative Negative [facility] 6 I Work Phone: BNPon 09-16-2021 Natriuretic peptide B (Bld) [Mass/Vol] 37 pg/mL Normal 0 - 99 [facility] Comment on above: Result Comment: . <1 [...] information. Performed By: #### A FPA3 #### [facility] [address] [place] [address] CBC AND DIFFERENTIALon 09-16 % AUTOMATED IMMATURE GRAN 0.5 % Normal 0.0 - 0.9 [facility] Comment on above: Result Comment: Jaleesa ture Granulocyte Count (IG) includes promyelocytes, myelocytes and metamyelocytes but does not include bands. Percent differential counts (%) should be interpreted in the context of the absolute cell counts (cells/L). Performed By: #### C BCDF ####[id number] [place] [address] Basophils (Bld) [#/Vol] 0.04 10*3/uL Normal 0.00 - 0.10 [facility] Comment on above: Performed By: #### C BCDF ####[id number] [place] [address] Basophils/100 WBC (Bld) 0.5 % Normal 0.0 - 2.0 [facility] Comment on above: Performed By: #### C BCDF ####[id number] [place] [address] Eosinophils (Bld) [#/Vol] 0.26 10*3/uL Normal 0.00 - 0.70 [facility] Comment on above: Performed By: #### C BCDF ####[id number] [place] [address] Eosinophils/100 WBC (Bld) 3.0 % Normal 0.0 - 6.0 [facility] Comment on above: Performed By: #### C BCDF ####[id number] [place] [address] Erythrocyte distribution width (RBC) [Ratio] 13.0 % Normal 11.5 - 14.5 [facility] Comment on above: Performed By: #### C BCDF ####[id number] [place] [address] Hematocrit (Bld) [Volume fraction] 42.7 % Normal 36.0 - 46.0 [facility] Comment on above: Performed By: #### C BCDF ####[id number] [place] [address] Hemoglobin (Bld) [Mass/Vol] 14.1 g/dL Normal 12.0 - 16.0 [facility] Comment on above: Performed By: #### C BCDF ####[id number] [place] [address] Lymphocytes (Bld) [#/Vol] 3.17 10*3/uL Normal 1.20 - 4.80 [facility] Comment on above: Performed By: #### C BCDF ####[id number] [place] [address] Lymphocytes/100 WBC (Bld) 37.2 % Normal 13.0 - 44.0 [facility] Comment on above: Performed By: #### C BCDF ####[id number] [place] [address] MCHC (RBC) [Mass/Vol] 33.0 g/dL Normal 32.0 - 36.0 [facility] Comment on above: Performed By: #### C BCDF ####[id number] [place] [address] MCV (RBC) [Entitic vol] 91 fL Normal 80 - 100 [facility] Comment on above: Performed By: #### C BCDF ####[id number] [place] [address] Monocytes (Bld) [#/Vol] 0.47 10*3/uL Normal 0.10 - 1.00 [facility] Comment on above: Performed By: #### C BCDF ####[id number] [place] [address] Monocytes/100 WBC (Bld) 5.5 % Normal 2.0 - 10.0 [facility] Comment on above: Performed By: #### C BCDF ####[id number] [place] [address] Neutrophils (Bld) [#/Vol] 4.55 10*3/uL Normal 1.20 - 7.70 [facility] Comment on above: Performed By: #### C BCDF ####[id number] [place] [address] Neutrophils/100 WBC (Bld) 53.3 % Normal 40.0 - 80.0 [facility] Comment on above: Performed By: #### C BCDF ####[id number] [place] [address] NUCLEATED RBC 0.0 /100 WBC Normal 0.0-0.0 [facility] Comment on above: Performed By: #### C BCDF ####[id number] [place] [address] Platelets (Bld) [#/Vol] 278 10*3/uL Normal 150 - 450 [facility] Comment on above: Performed By: #### C BCDF ####[id number] [place] [address] RBC 4.70 x10E12/L Normal 4.00 - 5.20 [facility] Comment on above: Performed By: #### C BCDF ####[id number] [place] [address] WBC (Bld) [#/Vol] 8.5 10*3/uL Normal 4.4 - 11.3 [facility] Comment on above: Performed By: #### C BCDF ####[id number] [place] [address] COAGULATION SCREENon 022 aPTT Coag (Bld) [Time] 31 s Normal 26 - 39 [facility] Comment on above: Result Comment: Note new reference range as of 08/04/2021 at 10:00am. Performed By: #### V FPA3 #### [facility] [address] [place] [address] PT Coag (PPP) [Time] 11.6 s Normal 9.8 - 13.4 [facility] Comment on above: Result Comment: Note new reference range as of 08/04/2021 at 10:00am. Performed By: #### V FPA3 #### [facility] [address] [place] [address] PT, INR 1.0 Normal 0.9 - 1.1 [facility] Comment on above: Performed By: #### V FPA3 #### [facility] [address] [place] [address] Clinical Event Note-ADMISSIO N CLARIFICATIONon 09-16-2021 Clinical [...] and monitoring for withdrawal. Provider/Team Contact Info-Pager [phone] Electronic Signatures: Sharmin Guaman (TRASH COLLECTOR SUPERVISOR-SENIOR COST ANALYST) (Signed 16-Sep-2021 12:07) Authored: Clinical Event Note Last Updated: 16-Sep-2021 12:07 by Sharmin Guaman (TRASH COLLECTOR SUPERVISOR-SENIOR COST ANALYST) Normal [facility] Complete Blood Count + Diffe rentialon 09-16-2021 [...] the note. I personally evaluated the patient [id number] Electronic Signatures: Chidi Lamar (Fellow)) (Signed 16-Sep-2021 [...] From Consult - Psychiatry 15-Sep-2021 20:42 Normal [facility] Consult-Perioperative Medici neon 09-16-2021 Consult-Perioperativ e Medicine [...] penicillin: Unknown Objective: Objective Information: T PRBPSpO2 Value36.42399300/8491% Date/Time09/16 11:13112 12:4909/16 12:4909/16 12:4909/16 12:49 Range(36.3C [...] 100 mg (more content not included)... Normal [facility] Cult, Urineon 09-16-2021 Bacteria identified Cx Nom (U) Abnormal [facility]-Gastroen terology-Rosendo zeny 6 [facility] Work Phone: Daily Progress Note-Nuha stearns 09-16-2021 Daily Progress Note-Neurosurgery Service: Neurosurgery Subjective Data: MORALES LEE is a 46 year old Female who is Hospital Day # 3. Objective Data: Objective Information: T PRBPSpO2 Value36.6215069/6693% Date/Time09/16 1: 4: 4: 4: 4:00 Range(36.3C [...] (suboxone) in AM COWS psych recs SCD's, [facility] Attestation: Note Completion: I [...] the note. I personally evaluated the patient [id number] Comments/ Additional Findings TO OR this Tuesday if medically optimized for T12 - Pelvis fusion and Instrumentation. Pain consult for management regrading Suboxone and pain control in the perioperative period. US LE MRI of the lumbar spine., Lex K Kasliwal, MD, [facility], FAANS Director - Minimally Invasive Spine Surgery [facility] Charge Loader of Neurological Surgery [facility] [employer] [place], [place] Electronic Signatures: Fidel Maciel (Resident)) (Signed 16-Sep-2021 04:33) Authored: Service, Subjective Data, Objective Data, Assessment and Plan, Note Completion Lex Frederick) (Signed 16-Sep-2021 10:22) Authored: Note Completion Co-Signer: Service, Subjective Data, Objective Data, Assessment and Plan, Note Completion Last Updated: 16-Sep-2021 10:22 by Lex Frederick) Normal [facility] EMR ADDONon 09-16-2021 ADDON CONFIRMATION REQUEST REC'D Normal [facility] Comment on above: Performed By: #### E [...] above: . <100 pg/mL - Heart failure [id number] pg/mL - Intermediate probability of acute heart. [...] [Mass/Vol] 3.5 g/dL Normal 3.4 - 5.0 [facility] Comment on above: Performed By: #### R ENAL #### [facility] [address] [place] [address] Anion gap [Moles/Vol] 14 mmol/L Normal 10 - 20 [facility] Comment on above: Performed By: #### R ENAL #### [facility] [address] [place] [address] Calcium [Mass/Vol] 8.9 mg/dL Normal 8.6 - 10.6 [facility] Comment on above: Performed By: #### R ENAL #### [facility] [address] [place] [address] Chloride [Moles/Vol] 101 mmol/L Normal 98 - 107 [facility] Comment on above: Performed By: #### R ENAL #### [facility] [address] [place] [address] Creatinine [Mass/Vol] 0.63 mg/dL Normal 0.50 - 1.05 [facility] Comment on above: Performed By: #### R ENAL #### [facility] [address] [place] [address] eGFR FEMALE >90 Normal >90 [facility] Comment on above: Result Comment: CALC ULATIONS OF ESTIMATED GFR ARE PERFORMED USING THE 2020 CKD-EPI STUDY REFIT EQUATION WITHOUT THE RACE VARIABLE FOR THE IDMS-TRACEABLE CREATININE METHODS. https://jasn.asnjournals.org/content//ASN.8890775 988 Performed By: #### R ENAL #### [facility] [address] [place] [address] Glucose [Mass/Vol] 88 mg/dL Normal 74 - 99 [facility] Comment on above: Performed By: #### R ENAL #### [facility] [address] [place] [address] HCO3 (Bld) [Moles/Vol] 29 mmol/L Normal 21 - 32 [facility] Comment on above: Performed By: #### R ENAL #### [facility] [address] [place] [address] Phosphate [Mass/Vol] 3.4 mg/dL Normal 2.5 - 4.9 [facility] Comment on above: Result Comment: The performance characteristics of phosphorus testing in heparinized plasma have been validated by the individual laboratory site where testing is performed. Testing on heparinized plasma is not approved by the FDA; however, such approval is not necessary. Performed By: #### R ENAL #### [facility] [address] [place] [address] Potassium [Moles/Vol] 3.7 mmol/L Normal 3.5 - 5.3 [facility] Comment on above: Performed By: #### R ENAL #### [facility] [address] [place] [address] Sodium [Moles/Vol] 140 mmol/L Normal 136 - 145 [facility] Comment on above: Performed By: #### R ENAL #### [facility] [address] [place] [address] Urea nitrogen [Mass/Vol] 10 mg/dL Normal 6 - 23 [facility] Comment on above: Performed By: #### R ENAL #### [facility] [address] [place] [address] Renal Function Panelon 09-16 Albumin BCP dye [...] 88 mg/dL 74 - 99 MG-Gas troen terology-Rosedno lwell 6 I Work Phone: Phosphate [Mass/Vol] [...] RACE VARIABLE FOR THE IDMS-TRACEABLE CREATININE METHODS.https://jasn.asnjournals.org/content//ASN .4066558059 UA MICROSCOPICon 09-16-2021 BACTERIA 2+ /HPF Abnormal [facility] Comment on above: Performed By: #### U AMIC ####[id number] [place] [address] Mucus Ql (Urine sed) 1+ /LPF Normal [facility] Comment on above: Performed By: #### U AMIC ####[id number] [place] [address] RBC 3 /HPF Normal 0-5 [facility] Comment on above: Performed By: #### U AMIC ####[id number] [place] [address] SQUAMOUS EPITH. CELLS 2 /HPF Normal [facility] Comment on above: Performed By: #### U AMIC ####[id number] [place] [address] WBC 115 /HPF Abnormal 0-5 [facility] Comment on above: Performed By: #### U AMIC ####[id number] [place] [address] URINALYSISon 09-16-2021 Appearance (U) HAZY Normal CLEAR [facility] Comment on above: Performed By: #### U A ####[id number] [place] [address] Bilirubin Ql (U) Negative Normal NEGATIVE [facility] Comment on above: Performed By: #### U A ####[id number] [place] [address] Color (U) YELLOW Normal STRAW,YELLO W [facility] Comment on above: Performed By: #### U A ####[id number] [place] [address] Glucose Ql (U) Negative Normal NEGATIVE [facility] Comment on above: Performed By: #### U A ####[id number] [place] [address] Hemoglobin Ql (U) Negative Normal NEGATIVE [facility] Comment on above: Performed By: #### U A ####[id number] [place] [address] Ketones Ql (U) Negative Normal NEGATIVE [facility] Comment on above: Performed By: #### U A ####[id number] [place] [address] Leukocyte esterase Test strip Ql (U) LARGE (3+) Abnormal NEGATIVE [facility] Comment on above: Performed By: #### U A ####[id number] [place] [address] Nitrite Ql (U) Positive Abnormal NEGATIVE [facility] Comment on above: Performed By: #### U A ####[id number] [place] [address] pH (U) 6.0 [pH] Normal 5.0 - 8.0 [facility] Comment on above: Performed By: #### U A ####[id number] [place] [address] Protein Ql (U) Negative Normal NEGATIVE [facility] Comment on above: Performed By: #### U A ####[id number] [place] [address] Specific gravity (U) [Rel density] 1.011 Normal 1.005 - 1.035 [facility] Comment on above: Performed By: #### U A ####[id number] [place] [address] Urobilinogen (U) [Mass/Vol] 2.0 mg/dL High 0.0 - 1.9 [facility] Comment on above: Result Comment: Due to [...] positive urobilinogen. Performed By: #### U A ####[id number] [place] [address] URINE CULTURE,BACTERIALon URINE CULTURE,BACTERIAL PATIENT: MORALES LEE LOCATION: [facility]#: [id number] : 71 AGE: SEX: F ORDERED BY: [...] DOSE DEPENDENT NS=NONSUSCEPTIBLE X=REPORTED IN ERROR Normal [facility] Comment on above: Performed By: #### A FPA3 #### [facility] [address] [place] [address] Urinalysison 09-16-2021 Color (U) YELLOW See Below MG-Gastroen terology-Rosendo [employer] [facility] Work Phone: Comment on above: Reference Range: STR AW,YELLOW Glucose Ql (U) Negative NEGATIVE MG-Gastroe n terology-Ros[facility] lwell 6 [facility] Work Phone: Ketones Ql (U) Negative NEGATIVE MG-Gastroe n terology-Rosendo [facility] 6 I Work Phone: Leukocyte esterase Test strip Ql (U) LARGE (3+) Abnormal NEGATIVE MG-Gastroen terology-Rosendo ell 6 I Work Phone: pH (U) 6.0 [pH] 5.0 - 8.0 MG-Gastroen terology-Rosendo lwell 6 I Work Phone: Protein (U) [Mass/Vol] Negative NEGATIVE MG-Gastroen terology-Rosendo ell 6 I Work Phone: RBC (U) [#/Vol] Negative NEGATIVE MG-Gastro en terology-Rosendo [facility] 6 I Work Phone: Specific gravity (U) [Rel density] 1.011 1 See Below MG-Gastroen terology-Rosendo [facility] 6 [facility] Work Phone: Comment on above: Reference Range: 1.0 05 - 1.035 Urinalysis Positive Abnormal NEGATIVE MG-Gastroen terology-Rosendo [facility] Work Phone: Urinalysis 2.0 mg/dL above high threshold 0.0 - 1.9 MG-Gastroen terology-Rosendo [facility] 6 I Work Phone: Comment on above: [...] 09-16-2021 VAS LAB Venous Duplex Ultrasound DVT [place] [address] and Vascular Lab Report Lower Venous Duplex Ultrasound Patient Name: MORALES LEE Reading Physician: [id number] Arjun Romero MD, RPVI Study Date: 09/16/2021 Referring Physician: [id number] RAGSDALE MRN/PID: [id number] PCP: Accession/Order#: [id number] CC Report to: Date of : 1975 Technologist: Isai Burleson RVT Gender: F Technologist 2: Admission Status: Outpatient Location Performed: [facility] Diagnosis/ICD: M79.89-Left leg swelling; M79.89-Right leg swelling Procedure/CPT: 42105 Peripheral venous duplex scan for DVT complete-10108 CONCLUSIONS: Right Lower Venous: No evidence of [...] Spontaneous/Phasic Peroneal Yes None PTV Yes None [id number] Arjun Romero MD, YOLIE Final Normal [facility] VAS LAB Venous Duplex Ultra sound for DVTon 09-16-2021 [facility] Venous Duplex Ultrasound for DVT MG-Gastroen terology-Rosendo lwell 6 I Work Phone: No Panel Informationon 09-15 [email or web address]?Ret rieveTestByDateTime?Patient XK=[id number]&Date= 2&Time=19%3a14%3a23%3a00&Te stType=ECG&Site=1&OutputTyp e=PDF&Ext=PDF MG-Gastroen terology-[facility] lwell 6 I Work Phone: Normal sinus rhythm MG-Ga stroen terology-Rosendo lwell 6 I Work Phone: Abnormal MG-Gastroen terology-Rosendo lwell 6 I Work Phone: [phone] MG-Gastroen terology-Rosendo lwell 6 I Work Phone: [phone] MG-Gastroen terology-Rosendo lwell 6 [facility] Work Phone: [phone] MG-Gastroen terology-Rosendo lwell 6 [facility] Work Phone: [phone] MG-Gastroen terology-Rosendo lwell 6 [facility] Work Phone: [phone] MG-Gastroen terology-Rosendo lwell 6 [facility] Work Phone: 14 1 MG-Gastroen terology-Rosendo lwell 6 [facility] Work Phone: [phone] MG-Gastroen terology-Rosendo lwell 6 [...] I Work Phone: [email or web address]?Ret rieveTestByDateTime?Patient AF=[id number]&Date= 2&Time=19%3a14%3a42%3a00&Te stType=ECG&Site=1&OutputTyp e=PDF&Ext=PDF MG-Gastroen terology-Rosendo lwell 6 [...] (Advanced Practice Nurse) done by Concetta Shi ([facility]) Admission - Reconciliation: 15-Sep-2021 19:03 by: Fidel Maciel (Resident)) Admission - Reset to Incomplete: 15-Sep-2021 21:47 by: Fidel Maciel ( (Resident)) Admission - Reconciliation: 15-Sep-2021 21:49 by: Fidel Maciel ( (Resident)) Admission - Reset to Incomplete: 16-Sep-2021 00:41 by: Fidel Maciel ( (Resident)) Admission - Reconciliation: 16-Sep-2021 00:42 by: Fidel Maciel ( (Resident)) Admission - Reset to Incomplete: 30-Sep-2021 14:18 by: Concetta Shi ([facility]) Admission - Reconciliation: 30-Sep-2021 14:20 by: Concetta Shi ([facility]) Home MedicationsEnteredLast Dose TakenReconciled with current Order Reconciliation Comment/ Additional Information acetaminophen 325 mg oral tablet 2 tab(s) orally every 6 hours, as needed while having post operative asin81-Emp-8486 Reviewed and Held Ambien CR 12.5 mg oral tablet, extended release 1 tab(s) oral lzs38-Use-1475 Zolpidem Tablet (AMBIEN)DOSE = 10 mg Oral At BedtimeNotes from Pharmacy: Substitution For Zolpidem (Ambien CR) 12.5 mg at Bedtime Ambien CR 12.5 mg oral tablet, extended release continued as the inpatient order Zolpidem Ankle Foot Orthosis for foot cmrb45-Zss-8359 Reviewed and Held betamethasone topical valerate 0.1% topical cream 1 milena topical prn 15-Sep-2021 EnteredInError Reviewed and Held Bilateral Prafos - orthotics to fit, - ICD 10: R26.0, M21.37, M62.81 30-Sep-2021 Reviewed and Held calcium-vitamin D 500 mg-200 intl units (5 mcg) oral tablet 1 tab(s) orally 4 times a bmt35-Ebm-4088 Calcium 500 mg - Vitamin D 200 [...] times a day, as needed for muscle puuwtq89-Fry-9917 Cyclobenzaprine Tablet (FLEXERIL)DOSE = 10 mg Oral [...] topical 1% topical gel 1 milena topical pbk73-Okz-7715 Reviewed and Held DULoxetine 30 mg oral [...] 2 tab(s) orally once a day, As Fqdlwe22-Pbn-1090 Reviewed and Held gabapentin 800 mg oral tablet 1 tab(s) oral 3 times a xqq55-Vdm-4464 Gabapentin Capsule (NEURONTIN)DOSE = 800 mg Oral 3 Times a Day gabapentin 800 mg oral tablet continued as the inpatient order Gabapentin LEFT AFO -Orthotics to fit, ICD 10: M21.3007-Zow-8203 Reviewed and Held lidocaine 5% topical film Apply topically to affected area once a day, As Needed near surgical incision for incisional pain 15-Sep-2021 EnteredInError Reviewed and Held lisinopril 20 mg oral tablet 1 tab(s) oral once a oqg55-Vxt-9258 Lisinopril Tablet (PRINIVIL, ZESTRIL)DOSE = 20 mg [...] patch TransDermal Every 24 HoursNotes from Pharmacy: [facility] nicotine 14 mg/24 hr transdermal film, [...] - available over the counter at any miszxtrr23-Ihg-0358 Reviewed and Held RIGHT AFO - Orthotics to fit, - M21.0792-Obg-6810 Reviewed and Held sennosides-docusate 8.6 mg-50 mg oral tablet 2 tab(s) orally 2 times a day , -Take while using oxycodone for post operative pain to prevent contipation 15-Sep-19 (more content not included)... Normal [facility] Radiologyon 09-15-2021 XR Chest Single view Normal MG-G astroen terology-Rosendo moura 6 [facility] Work Phone: TH CHEST 1 VIEWon 09-15-2021 TH CHEST 1 VIEW Patient Name: MORALES LEE STUDY: CHEST 1 VIEW; 09/15/2021 7:21 pm INDICATION: pre-op . COMPARISON: 12/26/2020. ACCESSION NUMBER(S): [id number] ORDERING CLINICIAN: TOSHA ELDER FINDINGS: CARDIOMEDIASTINAL SILHOUETTE: [...] dysfunction. Electronically signed by: Esther PEDERSON MD [facility] Established Visit (Neurosurg ariana)on 09-08-2021 Established Visit [...] in the Neurosurgery Spine Clinic at the [facility]. She is a very pleasant 46-year-old [...] obvious instability (more content not included)... Normal [employer] No Panel Informationon 09-08 Normal MG-Neurosur samson-Miguel [...] and T6-L4 Fusion. COMPARISON: None. ACCESSION NUMBER(S): [id number] ORDERING CLINICIAN: LEX FREDERICK FINDINGS: Fused PA [...] Electronically signed by: JOSEPH SALAZAR MD Normal [facility] Tobacco Screening.on Fall risk assessment b) One or more fall s in the last year -Nuha Doyle Work Phone: Tobacco use status CPHS a) Yes [employer]-Nuha Doyle Work Phone: Established Visit (Neurosurg ariana)on 05-05-2021 Established Visit (Neurosurgery) History of Present Illness I just had the pleasure of seeing Mrs. Raghav villarreal in the Neurosurgery Spine Clinic at the [facility]. She is a very pleasant 45 -year-old female, who recently underwent a L1 Vertbrectomy and T6-L4 Fusion with me on 12/26/2020 and is status post 4 Months out from her surgery. Today's visit was a virtual visit with the patient at her home and myself at [facility]. She mentions that overall she is [...] in Ms. LEE care. Lex Frederick MD, [facility], FAANS Director - Minimally Invasive Spine Surgery [facility] Charge Loader of Neurological Surgery [facility] [employer] [place], [place] Some of this note was completed using Sportistic voice recognition technology and sometimes the software [...] May 05 2021 9:18PM EST (Author) Normal [facility] Established Visit (Neurosurg ariana)on 01-08-2021 Established Visit [...] in the Neurosurgery Spine Clinic at the [facility]. She is a very pleasant 45 -year-old female, who recently underwent a L1 Vertbrectomy and T6-L4 Fusion with wy on 12/26/2020 and is status post 2 [...] the further treatment plan. Lex Frederick MD, [facility], FAANS Director - Minimally Invasive Spine Surgery [facility] Water Mechanic of Neurological Surgery [facility] [employer] [place], [place] Some of this note was completed using Sportistic voice recognition technology and sometimes the software [...] Unspecified cord compression. COMPARISON: None. ACCESSION NUMBER(S): [id number] ORDERING CLINICIAN: LEX FREDERICK TECHNIQUE: Multiplanar and [...] MRI lumbar spine from 03/11/2016. ACCESSION NUMBER(S): [id number] ORDERING CLINICIAN: LEX FREDERICK TECHNIQUE: MRI of [...] multiple levels. This study was interpreted at [facility]. Electronically signed by: WESLEY CARBAJAL MD [place] [...] Status:Resulted - Preliminary,Retrospective By Protocol Authorization; Done: [id number] 12:00AM Reason: Unspecified for Xray Spine, entire thoracic/lumbar, include skull, cervical and sacral spine when performed, 2 or 3 view Radiologist to Determine Optimal Study : Y What are the patient's signs and symptoms? : Lumbar Pain SocHx: Current smoker Tobacco Use Screening; Status:Complete; Done: [id number] Patient Discussion/Summary It was a pleasure to see Ms. LEE at the Neurosurgery Spine Clinic at [facility]. Ms. 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 She now has been having severe symptoms [...] evaluated by another spine surgeon at the [facility] who recommended urgent surgery for her [...] even walk (more content not included)... Normal Erydel CNPNon 07-10-2019 CNPN Telephone (SPNMMN) MORALES LEE ([id number]) 1975 F Date Time Provider Department 07/10/19 DIXIE TEE [facility] During your visit today, we recorded the [...] Order(s):CONSULT TO ORTHOPAEDIC SURGERY [[id number]] Order #: [id number]: 1 Prescriptions as of 07/10/2019 Sig: LISINOPRIL [...] Status:Closed by DIXIE TEE MD on 07/10/19 [facility] CNOVon 07-09-2019 CNOV Office Visit (SPNSMN ) MORALES LEE ([id number]) 1975 F Date Time Provider Department 07/09/19 9:30 AM STEVENSON QUAN SPNSMN During your visit today, we recorded the following information about you: Pulse Respiration Blood pressure Weight 89/minute 18/minute 124/74 95.8 kg Height 1.499 m Stevenson uQan MD 07/09/2019 2:56 PM Signed SPINE SURGERY OUTPATIENT CONSULT SERVICE DATE: 07/09/2019 PCP: No primary care provider on file. REFERRING PROVIDER: Dixie Tee MD [address] [facility] [address] Consult requested for an opinion regarding the [...] file Gets together: Not on file Attends hindu service: Not on file Active member of [...] with the patient or the patient?s personal off premise service representative. 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] Other Visit Diagnosis:Spinal stenosis of thoracic region [M48.04] Order(s):CT THORACIC SPINE WO IVCON [[id number]] Order #: [id number] FUTURE Prescriptions as of 07/09/2019 Sig: LISINOPRIL [...] Status:Closed by STEVENSON QUAN MD on 07/09/19 [facility] OBSOLETEon 07-09-2019 OBSOLETE Procedure (EMGMN) MORALES LEE ([id number]) 1975 F Date Time Provider Department 07/09/19 [...] upper limb [G56.21] Order(s):EMG(NEURO/NI) [[id number]] Order #: [id number]: 1 Prescriptions as of 07/09/2019 Sig: LISINOPRIL [...] by JHON EASON MD on 07/09/19 Normal [facility] PROGRESSon 07-09-2019 PROGRESS HNO ID: [id number] Author: Stevenson Quan Service: ? Author Type: Physician Type: Progress Notes Filed: 07/09/2019 2:56 PM Note Text: SPINE SURGERY OUTPATIENT CONSULT SERVICE DATE: 07/09/2019 PCP: No primary care provider on file. REFERRING PROVIDER: Dixie Tee MD [address] [facility] [address] Consult requested for an opinion regarding the [...] file Gets together: Not on file Attends hindu service: Not on file Active member of [...] with the patient or the patient?s personal off premise service representative. The patient has elected to schedule [...] 09, 2019 TIME: 10:24 AM PAGER: Normal [facility] OT-XR DEXA BONE DENSITY IMPO RTon 07-06-2019 OT-XR DEXA BONE DENSITY IMPORT Images were obtained outside of [facility] [id number] Normal [facility] CASE MGT INIT [facility] 2018 CASE MGT INIT [facility] HNO ID: [id number] Author: Kimberly WilksRn) EVARISTO Dunaway Service: ? Author Type: Registered Nurse Type: Care Mgt Initial Assessment Filed: 06/20/2019 12:25 PM Note Text: CARE MANAGEMENT: ASSESSMENT AND DISCHARGE PLAN SERVICE DATE: 06/20/2019 SERVICE TIME: 12:21 PM PRIMARY CARE PHYSICIAN: No primary care provider on file. 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 N/A SOCIAL: Living Arrangement: Home Lives With: Spouse Financial Resources: Disabled Primary Contact: Extended Emergency Contact Information Primary Emergency Contact: Lars Lee Address: [address] [place] [address] [facility] Mobile Relation: Spouse Supportive: Yes [...] 0 I feel financially burdened by my pdo-cg-rewrwx expenses for my prescription medication: Disagree completely [...] 20, 2019 TIME: 12:21 PM PAGER/CONTACT #: [phone] Normal [facility] CBCon 06-20-2019 Erythrocyte distribution width (RBC) [Ratio] 12.6 % Normal 11.5-15.0 [facility] Comment on above: Performed By: #### C BC #### [place] [phone] Hematocrit (Bld) [Volume fraction] 48.7 % High 36.0-46.0 [facility] Comment on above: Performed By: #### C BC #### [place] [phone] Hemoglobin (Bld) [Mass/Vol] 16.8 g/dL High 11.5-15.5 [facility] Comment on above: Performed By: #### C BC #### [place] [phone] MCH (RBC) [Entitic mass] 31.1 pG Normal 26.0-34.0 [facility] Comment on above: Performed By: #### C BC #### [place] [phone] MCHC (RBC) [Mass/Vol] 34.5 g/dL Normal 30.5-36.0 [facility] Comment on above: Performed By: #### C BC #### [place] [phone] MCV (RBC) [Entitic vol] 90.0 fL Normal 80.0-100.0 [facility] Comment on above: Performed By: #### C BC #### [place] [phone] Platelet mean volume (Bld) [Entitic vol] 10.6 fL Normal 9.0-12.7 [facility] Comment on above: Performed By: #### C BC #### [facility] [address] [place] [address] Platelets (Bld) [#/Vol] 334 10*3/uL Normal 150-400 [facility] Comment on above: Performed By: #### C BC #### [place] [id number] RBC (Bld) [#/Vol] 5.41 10*6/uL High 3.90-5.20 [facility] Comment on above: Performed By: #### C BC #### [place] [id number] WBC (Bld) [#/Vol] 10.85 10*3/uL Normal 3.70-11.00 [facility] Comment on above: Performed By: #### C BC #### [place] [id number] CONSULTon 06-20-2019 CONSULT HNO ID: [id number] Author: Evelyn Resendez Service: Pain Management Author [...] substances - including suboxone - from [facility]. Of note, pt has followed [...] me to leave. She is now leaving [place]. 3. Will sign off SUBJECTIVE CHIEF COMPLAINT: [...] activity was identified. 06/20/2019 by Evelyn Resendez APRN.SENIOR COST ANALYST PAST MEDICAL HISTORY Diagnosis Date - Degenerative [...] file Gets together: Not on file Attends hindu service: Not on file Active member of [...] Morales Parker Raghav's care. SIGNATURE: Evelyn Resendez APRN.SENIOR COST ANALYST PATIENT NAME: Morales Lee DATE: June 20, 2019 TIME: 8:24 AM PAGER/CONTACT #: [phone] (M-F [id number]) [facility] CT BRAIN WO IVCONon 06-20-[address] BRAIN WO IVCON * * *Final Report* * * DATE OF EXAM: Jun 20 2019 1:31AM [facility] 0504 - CT BRAIN WO IVCON / [...] No large cortical infarct or acute hemorrhage. Hire Car Driver: ADITYA Transcribe Date/Time: Jun 20 2019 1:33A Dictated by : DAVONTE MOY MD This examination was interpreted and the report reviewed and electronically signed by: DAVONTE MOY MD on Jun 20 2019 1:35AM EST [id number] [facility] ECG COMPLETEon 06-20-2019 ECG COMPLETE NAME : MORALES LEE PID : [id number] : 1975 Gender : Female Race : ORD : [id number] Procedure Date : Jun 19 2019 23:57:03 Edit Date : Jun 20 2019 07:51:18 Diagnosis:Sinus rhythm Normal ECG no STEMI 1200a Confirmed by MD ARREDONDO LISA ([id number]), greeting card editor FOREST WALTON ([id number]) on 06/20/2019 7:51:18 AM Ventricular Rate : 85 BPM Atrial Rate : 85 BPM P-R Interval : 137 ms QRS Duration : 91 ms Q-T Interval : 365 ms QTC Calculation(Bazett) : 434 ms P Henrietta : 51 degrees R Henrietta : -13 degrees T Henrietta : 61 degrees Test Reason : Chest Pain Location : 302 : ED AVED-1 Overread By : MD CORBY,TRACY Edited By : FOREST WALTON Referred By : , Acquired by : [id number], [facility] ED NOTEon 06-20-2019 ED NOTE HNO ID: [id number] Author: Yuki Mckenzie) EVARISTO Cruz Service: ? Author Type: Registered Nurse Type: ED Notes Filed: 06/20/2019 1:40 AM Note Text: Patient got CT, it is still pending and Jessie BONITA said ok to transfer to [facility] with out results pending. Patient agreeing and understanding of transfer. updated on POC and transfer via telephone. DM here to take patient at this time. Pain is not improved at time of transfer. [facility] ED NOTE HNO ID: [id number] Author: Yuki Cruz RN Service: ? Author Type: Registered Nurse Type: ED Notes Filed: 06/20/2019 1:15 AM Note Text: Clean catch urine specimen obtained and sent. [facility] ED NOTE HNO ID: [id number] Author: Yuki Cruz RN Service: ? Author [...] time with getting transferred to another facility. [facility] ED NOTE HNO ID: [id number] Author: Yuki Cruz RN Service: ? Author Type: Registered Nurse Type: ED Notes Filed: 06/20/2019 3:28 AM Note Text: Patient stated Valium did not help. She continues to be in pain and upset. She wanted to speak with someone in charge and update on POC. Normal [facility] HISTORY PHYSICALon 9 HISTORY PHYSICAL HNO ID: [id number] Author: Talita Wesley RN Service: General Internal [...] tightness that is constant. Notices a decreased education associate strength and weakness in left hand. She [...] pressure, palpitations, leg swelling. Denies hx of LA. GI: Denies nausea, vomiting, diarrhea, abdominal pain, [...] rotation 40/80% Decreased left C5-C7 sensation. Left education associate strength 2/5. Right education associate strength 5/5. UE DTR intact and equal. [...] tightness into left arm, weak left hand education associate strength, and worsening severity of numbness/tingling -Afebrile [...] Needs confirmed with patient pharmacy. Patient uses [facility] in [place], [place]. Patient provided #[phone]. Will call in am to confirm dose. Nicotine Abuse Assessment AND Plan: Smokes 1 1/2 PPD for 20 years. Smoking cessation advised. Nicotine patch ordered. Medication and Non-Pharmacologic VTE Prophylaxis/Anticoagulants VTE Prophylaxis: VTE prophylaxis appropriate SIGNATURE: Talita Wesley APRN.CNP PATIENT NAME: Morales Lee DATE: June 20, 2019 TIME: 2:58 AM PAGER/CONTACT #: [facility] # [phone] [facility] NURSING PROGon 06-20-2019 NURSING PROG HNO ID: [id number] Author: Austyn (Rn) EVARISTO Berumen Service: Nursing Author Type: Registered Nurse Type: Nursing Progress Note Filed: 06/20/2019 3:10 PM Note Text: Nursing Progress Note Patient Name: Morales Lee Patient Location: [id number] 2 Daily Note:06/20/2019 -pt is upset regarding [...] note was completed by: AUSTYN BERUMEN RN [facility] NURSING PROG HNO ID: [id number] Author: Austyn Mckenzie) EVARISTO Berumen Service: Nursing Author Type: Registered Nurse Type: Nursing Progress Note Filed: 06/20/2019 8:10 AM Note Text: Nursing Progress Note Patient Name: Morales Lee Patient Location: [id number] 2 Daily Note:06/20/2019 -assumed care of patient, pt is requesting her suboxone. We have to call to verify dosage. -EVARISTO Acosta called pharmacy provided by night INSULATION INSTALLER and the pharmacy does not open until 9am. We will call back to verify dose later. -Dr. Kwon called to speak with this RN, he will be in to see the patient later today. This note was completed by: AUSTYN BERUMEN RN [facility] NURSING PROG HNO ID: [id number] Author: Guadalupe Mckenzie) EVARISTO Herbert Service: ? Author Type: Registered Nurse Type: Nursing Progress Note Filed: 06/20/2019 4:33 AM Note Text: Nursing Progress Note Patient Name: Morales Lee Patient Location: [id number] 2 Daily Note:AANDO x 3. C/O left [...] note was completed by: Guadalupe Herbert RN [facility] PROGRESSon 06-20-2019 PROGRESS HNO ID: [id number] Author: Sedrick Martin Service: General Internal Medicine [...] Cor:RSR, no murmurs. 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 DATA: Diagnostic tests [...] Non-Pharmacologic VTE Prophylaxis/Anticoagulants 06/20/19399 pneumatic compression stockings ([place]) 06/20/19399 activity - mobilize patient ([place], [place]) VTE Prophylaxis: appropriate SIGNATURE: Sedrick Martin MD PATIENT NAME: Morales Lee DATE: June 20, 2019 TIME: 10:41 AM PAGER: Normal [facility] PROGRESS HNO ID: [id number] Author: Sedrick Martin Service: General Internal Medicine Author Type: Physician Type: Progress Notes Filed: 06/20/2019 8:25 AM Note Text: As per Pain Management Consult still pending, I was notified by Pain Management to resume the pt.' s home Suboxone dosage until pt. Seen later today. Normal [facility] Troponin Ton 06-20-2019 Troponin T.cardiac [Mass/Vol] ug/L Normal 0.000-0.029 [facility] Comment on above: Performed By: #### T NT #### [place] [phone] [place] [phone] Troponin T.cardiac [Mass/Vol] ug/L Normal 0.000-0.029 [facility] Comment on above: Performed By: #### T NT #### [place] [phone] Basic Metabolic Panlon 06-19 Anion gap [Moles/Vol] 14 mmol/L Normal 9-18 [facility] Calcium [Mass/Vol] 10.3 mg/dL High 8.5-10.2 [facility] Chloride [Moles/Vol] 96 mmol/L Low 97-105 [facility] CO2 [Moles/Vol] 29 mmol/L Normal 22-30 [facility] Creatinine [Mass/Vol] 0.59 mg/dL Normal 0.58-0.96 [facility] eGFR- Amer. >60 Normal [facility] GFR/1.73 sq M predicted among non-blacks MDRD (S/P/Bld) [Vol rate/Area] mL/min/{1.73_m2} Normal [facility] Comment on above: Result Comment: eGFR (Estimated [...] GFR. Glucose [Mass/Vol] 114 mg/dL High 74-99 [facility] Comment on above: Result Comment: The [place] [employer] (ADA) provides guidance for cutoff [...] Standards of Medical Care in Diabetes 2016, [place] [employer]. Diabetes Care. 2016.39(Suppl 1). Potassium [Moles/Vol] 3.7 mmol/L Normal 3.7-5.1 [facility] Sodium [Moles/Vol] 139 mmol/L Normal 136-144 [facility] Urea nitrogen [Mass/Vol] 7 mg/dL Normal 7-21 [facility] CBC and Differentialon 06-19 Abs Baso 0.09 k/uL Normal <0.11 [facility] Abs Oceana 0.61 k/uL Normal <0.87 [facility] Abs Neut 7.56 k/uL High 1.45-7.50 [facility] Absolute nRBC <0.01 Normal <0.01 [facility] Basophils/100 WBC (Bld) 0.7 % Normal [facility] DTYPE Auto Diff Normal [facility] Eosinophils (Bld) [#/Vol] 0.25 10*3/uL Normal <0.46 [facility] Eosinophils/100 WBC (Bld) 1.9 % Normal [facility] Erythrocyte distribution width (RBC) [Ratio] 12.0 % Normal 11.5-15.0 [facility] Hematocrit (Bld) [Volume fraction] 52.6 % High 36.0-46.0 [facility] Hemoglobin (Bld) [Mass/Vol] 18.0 g/dL High 11.5-15.5 [facility] Lymphocytes (Bld) [#/Vol] 4.67 10*3/uL High 1.00-4.00 [facility] Lymphocytes/100 WBC (Bld) 35.4 % Normal [facility] MCH (RBC) [Entitic mass] 30.0 pG Normal 26.0-34.0 [facility] MCHC (RBC) [Mass/Vol] 34.2 g/dL Normal 30.5-36.0 [facility] MCV (RBC) [Entitic vol] 87.7 fL Normal 80.0-100.0 [facility] Monocytes/100 WBC (Bld) 4.6 % Normal [facility] Neutrophils/100 WBC (Bld) 57.4 % Normal [facility] NRBCs 0.0 /100 WBC Normal 0 [facility] Platelet mean volume (Bld) [Entitic vol] 10.1 fL Normal 9.0-12.7 [facility] Platelets (Bld) [#/Vol] 370 10*3/uL Normal 150-400 [facility] RBC (Bld) [#/Vol] 6.00 10*6/uL High 3.90-5.20 [facility] WBC (Bld) [#/Vol] 13.18 10*3/uL High 3.70-11.00 [facility] ED NOTEon 06-19-2019 ED NOTE HNO ID: [id number] Author: Yuki (Evaristo) EVARISTO Cruz Service: ? Author Type: Registered Nurse Type: ED Notes Filed: 06/20/2019 3:27 AM Note Text: Patient has requested valium, she says that she takes it at home. Biago updated. Normal [facility] ED NOTE HNO ID: [id number] Author: Yuki Mckenzie) EVARISTO Cruz Service: ? Author Type: Registered Nurse Type: ED Notes Filed: 06/20/2019 3:27 AM Note Text: Patient is complaining of nausea. She is requesting her saboxon as well and Biago was updated on request. [facility] ED NOTE HNO ID: [id number] Author: Yuki WilksRn) EVARISTO Cruz Service: ? Author Type: Registered Nurse Type: ED Notes Filed: 06/19/2019 7:54 PM Note Text: Said that after her surgery in 2016 her left pinky and ring finger are numb but she said lately her other fingers on that hand have been getting numb as well. [facility] ED NOTE HNO ID: [id number] Author: Vanessa WilksRn) EVARISTO Ruiz Service: ? Author Type: Registered Nurse Type: ED Notes Filed: 06/19/2019 6:48 PM Note Text: Patient has chronic neck pain for three years. Saw spine doctor 06/12/2019 for the same had x rays. Denies any new injury. States pain goes into left arm. Arrived via wheelchair [facility] ED PROV NOTEon 06-19-2019 ED PROV NOTE HNO ID: [id number] Author: Tracy Arredondo Service: Emergency Medicine Author [...] light touch over bilateral lower extremities. 3/5 education associate, bicep, tricep strength over LUE. Decreased sensation to light touch over left upper extremity in median, radial, and ulnar nerve distribution. 5/5 education associate, bicep, tricep strength of R UE. Skin: [...] neurosurgical consult as previous notes from her extension specialist recommend obtaining EMG and possible further [...] a neurosurgical consult she warrants transfer to [facility] for further management of her condition. We have low suspicion for stroke at this time as pain appears to be radicular in nature and she has had worsening progression of her symptoms with documented notes from spine (Dr. Álvarez) suggesting this worsening pain and numbness. The SENIOR COST ANALYST, Talita, at [facility] recommended we obtain a CT brain and she must rule out any acute intercranial abnormality that may be contributing to the patient's symptoms. Therefore, this study was ordered and will be followed up by the night team especially if there is any acute intracranial abnormality. As long as there is no acute intracranial abnormality she will be transferred to [facility] for further evaluation and management of her condition. Patient voiced understanding was in agreement with the above plan. This patient's case was discussed with Dr. Arredondo who personally evaluated the patient supervised her care. The patient was TRANSFERRED to: [facility] Condition at time of disposition: stable SIGNATURE: NORMA Montgomery (Pa) 06/20/19 0026 Attending Note I have personally performed a face to face assessment of the patient and have reviewed the PA/SERVICENOW ADMINISTRATOR note. My schofield findings include: History is [...] of 5 strength left upper extremities in education associate strength as well as biceps and triceps [...] worsening neck pain we will place her [facility] observation for cardiac rule out as well [...] and requested by the observation provider at [facility] as they were concerned about stroke. However I doubt this and did not feel this was necessary however it is currently pending and patient will be transferred to [facility] if this is unremarkable. Signature: Tracy Arredondo DO Date: 06/20/2019 Time: 12:26 AM Tracy Arredondo 06/20/19 0033 Normal [facility] Magnesiumon 06-19-2019 Magnesium [Mass/Vol] 2.0 mg/dL Normal 1.7-2.3 [facility] Troponin Ton 06-19-2019 Troponin T.cardiac [Mass/Vol] ug/L Normal 0.000-0.029 [facility] CNOVon 06-12-2019 CNOV Office Visit (SPNMMN ) MORALES LEE ([id number]) 1975 F Date Time Provider Department 06/12/19 [...] file Gets together: Not on file Attends hindu service: Not on file Active member of [...] [Z98.890] Order(s):PATIENT PLACED ON SPINE CARE PATH [8100344] Order #: [id number]: 1 XR SCOLIOSIS PA STAND/LAT 2V [[id number]] Order #: [id number] FUTURE EMG(NEURO/NI) [[id number]] Order #: [id number]: 1 FUTURE CONSULT TO SPINE SURGERY [[id number]] Order #: [id number]: 1 FUTURE Prescriptions as of 06/12/2019 Sig: [...] Status:Closed by DIXIE TEE MD on 06/12/19 [facility] PROGRESSon 06-12-2019 PROGRESS HNO ID: [id number] Author: Zoey Aponte (RtRobert Montiel Service: Radiology Author Type: Long Goods Drier Type: Progress Notes Filed: 06/12/2019 10:10 AM [...] RT Daxa June 12, 2019 10:09 AM [facility] PROGRESS HNO ID: [id number] Author: Dixie Tee Service: ? Author Type: [...] file Gets together: Not on file Attends hindu service: Not on file Active member of [...] healed incisions. Chest: symmetric expansion Data Review: [facility] records reviewed Care everywhere Lumbar CT [...] call to confirm receipt and for results. Dxiie Tee MD The above plan and management options were discussed at length with patient. Patient is in agreement with the above and verbalized understanding. Patient instructed to call/seek urgent medical care with worsening of symptoms or change of neurological status. Patient provided with office contact. SIGNATURE: Dixie Tee MD PATIENT NAME: Morales Lee DATE: June 12, 2019 TIME: 8:12 AM Normal [facility] XR SCOLIOSIS 2V PA STAND/LAT on [...] changes and multilevel compression deformities as described. Hire Car Driver: PSCB Transcribe Date/Time: Jun 12 2019 4:36P Dictated by : CAROLINA MOJICA MD This examination was interpreted and the report reviewed and electronically signed by: CAROLINA MOJICA MD on Jun 12 2019 4:39PM EST [id number] Normal [facility] PROGRESSon 05-14-2019 PROGRESS HNO ID: [id number] Author: Laury Levin Service: ? Author Type: Physician It Project Manager Type: Progress Notes Filed: 05/14/2019 1:26 PM [...] to rule out cubital tunnel syndrome. Normal [facility] PROGRESSon 05-09-2019 PROGRESS HNO ID: [id number] Author: Kathia Kelly Service: ? Author Type: ? Type: Progress Notes Filed: 05/14/2019 1:26 PM Note Text: Patient name: Morales Lee Are you being referred by a [facility] Provider or Pain Management Provider at [facility]? No If answer is YES please schedule directly with surgeon, triage does not need to be completed. Is this a self-referral No If not, who is the Referring Provider: Dr. Hendricks/ [facility] MRI/CT/myelogram within 12 months: Yes If No , please refer to medical spine or PCP to complete above imaging, triage does not need to be completed Imaging viewable in Epic: No If not, please provide [phone] to fax in imaging reports for review. [...] will fax imaging report and op notes. [phone] Normal [facility] CT-CT C-SPINE WO CON IMPORTo n 02-13-2019 CT-CT C-SPINE WO CON IMPORT Images were obtained outside of [facility] [id number] Normal [facility] CT-CT L-SPINE WO CON IMPORTo n 02-13-2019 CT-CT L-SPINE WO CON IMPORT Images were obtained outside of [facility] [id number] Normal [facility] Vital Signs Date Time Vital Sign Value Performing Clinician Facility 06-07-2022 12:48-0400 Diastolic blood pressure 83 mm[Hg] No Pcp Required [facility] 06-07-2022 12:48-0400 Heart rate 67 /min No Pcp Required [facility] 06-07-2022 12:48-0400 Respiratory rate 16 /min No Pcp Required [facility] 06-07-2022 12:48-0400 SaO2% (BldA) [Mass fraction] 96 % No Pcp Required [facility] 06-07-2022 12:48-0400 Systolic blood pressure 148 mm[Hg] No Pcp Required [facility] 01-06-2022 10:51-0400 Blood Pressure Location NATALIA MANNING [facility] 01-06-2022 10:51-0400 Diastolic blood pressure 86 mm[Hg] NATALIA MANNING [facility] 01-06-2022 10:51-0400 Heart rate 86 /min NATALIA MANNING [facility] 01-06-2022 10:51-0400 Respiratory rate 16 /min NATALAI MANNING [facility] 01-06-2022 10:51-0400 Systolic blood pressure 132 mm[Hg] NATALIA MANNING [facility] 09-08-2021 14:15-0500 Body height 149.86 cm No PCP None [facility] Work Phone: 09-08-2021 14:15-0500 Body mass index (BMI) [Ratio] 36.96 kg/m2 No PCP None [facility]Cqiuledzintp[facility]Qf [facility] Work Phone: 09-08-2021 14:15-0500 Body surface area Derived from formula 1.78 m2 No PCP None JW[facility]Ruuazjyxelyx[facility]Ba [facility] Work Phone: 09-08-2021 14:15-0500 Body weight 83.01 kg No PCP None [facility] Work Phone: 09-08-2021 14:15-0500 Diastolic blood pressure 68 mm[Hg] No PCP None IM-Huhjoxspogvv-Xq [facility] Work Phone: 09-08-2021 14:15-0500 Heart rate 96 /min No PCP None [facility] Work Phone: 09-08-2021 14:15-0500 Respiratory rate 16 /min No PCP None [facility] Work Phone: 09-08-2021 14:15-0500 Systolic blood pressure 115 mm[Hg] No PCP None RT-Viatcysvtwnd-Rl uja Work Phone: 09-08-2021 14:15-0500 0 1 No PCP None [facility] Work Phone: Comment on above: [facility] 01-01-2021 16:46-0400 Heart rate 111 /min No Pcp Required [facility] 01-01-2021 16:46-0400 SaO2% (BldA) [Mass fraction] 95 % No Pcp Required [facility] 01-01-2021 14:00-0400 Body temperature 96.8 [degF] No Pcp Required [facility] 01-01-2021 14:00-0400 Diastolic blood pressure 77 mm[Hg] No Pcp Required [facility] 01-01-2021 14:00-0400 Respiratory rate 18 /min No Pcp Required [facility] 01-01-2021 14:00-0400 Systolic blood pressure 114 mm[Hg] No Pcp Required [facility] Encounters Encounter Date Encounter Type Care Provider [...] encounter procedure Danya Bingham [facility] Start: 11-22-2022 ambulatory MENDOSA H FAWWAD Facilit y:[facility] Start: 11-09-2022 End: 11-09-[address] DEVANTE ELIZONDO . Facility:[facility] Start: 10-22-2022 ambulatory Young Hargrove Faci lity:SHAHZAD Hurtado Start: 10-15-2022 End: 10-15-2022 ambulatory KYRA DIAB . Facility:[facility] Start: 09-24-2022 End: 09-25-2022 ambulatory MENDOSA FAWWAD Facility:[facility] Start: 09-24-2022 End: 09-24-2022 Patient encounter procedure Danya B[facility] [facility] Start: 09-01-2022 Encounter for preprocedural laboratory examination DANYA BINGHAM . [facility] Start: 08-25-2022 End: 08-26-2022 ambulatory MENDOSA H FAWWAD Facility:H1 Start: 08-24-2022 End: 08-25-2022 ambulatory MENDOSA H FAWWAD Facility:H1 Start: 08-24-2022 End: 08-25-2022 Encounter for preprocedural laboratory examination MENDOSA H FAWWAD Facility:H1 Start: 08-21-2022 ambulatory MENDOSA H FAWWAD Facilit y:H1 Start: 07-28-2022 ambulatory MENDOSA FAWWAD Facility: CD:[id number] Start: 07-16-2022 End: 07-17-2022 ambulatory MENDOSA FAWWAD Facility:SHAHZAD [facility] Start: 07-16-2022 End: 07-16-2022 Patient encounter procedure Danya Bingham [facility] Start: 06-06-2022 End: 06-07-2022 Emergency department patient visit Yony Aguirre [facility] Adult ED Blue 45 Start: 05-31-2022 End: 05-31-[address] ALEXANDRU SORIA . Facility:H1 Start: 05-19-2022 End: 05-20-2022 ambulatory SHAIKH BIN Facility:[facility] Start: 05-19-2022 End: 05-19-2022 [facility]-Site [facility] Start: 05-07-2022 End: 05-07-2022 ambulatory SHAIKH [...] 02-04-2022 Off-Site Danya Bingham [facility] Start: 01-11-2022 Chart Update No PCP None [facility] [place] Work Phone: Start: 01-11-2022 End: 01-11-2022 Patient encounter procedure Danya Bingham [facility] Start: 01-07-2022 AUDIT No PCP None MG-Neurosu rgery-[facility] [place] [address] Work Phone: Start: 01-06-2022 End: 01-06-2022 Patient encounter procedure NATALIA MANNING [facility] [place] Start: 10-13-2021 AUDIT No PCP None MG-Neurosu rgery-Miguel Work Phone: Start: 09-29-2021 AUDIT No PCP None MG-Gastroe nterology-B ol[facility] 6 [facility] Work Phone: Start: 09-15-2021 End: 10-02-2021 Evaluation and management of inpatient Dr. LEX FREDERICK Facility:[facility] Start: 09-09-2021 AUDIT No PCP None MG-Neurosu rgery-Miguel Work Phone: Start: 09-08-2021 Office outpatient vi sit 40 minutes No PCP None YH-Eqxtfuemlpxw-Cjqzj Work Phone: Start: 05-05-2021 Postop follow up vis it related to original px No PCP None TY-Dpjmgetvprab-ZNLXP Work Phone: Start: 12-26-2020 End: 01-01-2021 Evaluation and management of inpatient Lex Frederick [facility] [id number] Preoperative state No PCP None MG-Neuros urgery-[facility] Work Phone: Procedures Date Procedure Procedure Detail Performing Clinician Start: 09-21-[address] EFRAIN FREDERICK Comment on above: Performed By: #### A FPA3 #### [facility] [address] [place] [address] Start: 09-21-[address] EFRAIN FREDERICK Comment on above: Order Comment: VENECIA ESPINO, 09/21/2021 05:08TEST TYPE + SCREEN WAS CANCELLED, 09/21/2021 05:06 NO PHLEB ID ON TUBE. Result Comment: CALL ED RN AFSANEH ESPINO, 09/21/2021 05:08 Performed By: #### A FPA3 #### [facility] [address] [place] [address] Start: 09-17-[address] EFRAIN FREDERICK Comment on above: Performed By: #### T +S #### [facility] [address] [place] [address] Start: 12-27-2020 End: 12-28-2020 Release Blood Product-Packed [...] Lex Frederick, Status: Pen, Time: 2:00 PM QC-Qdqdnnswabgmgwjy-Ls lwell 6 I Work Phone: Start: 10-07-2021 Admission to [facility] RNSTEPHANIEIT, Provider: NURSE VISIT ASHLEY 5TH,MGNEUROSURGERY, Status: Pen, Time: 10:15 AM CV-Bqevqpwtfjbdhyct-Lq lwell 6 I Work Phone: Start: 09-18-2021 [facility], Provider: Lex Frederick, Status: Pen, Time: 8:00 AM [facility], Provider: Lex Frederick, Status: Pen, Time: 8:00 AM BK-Esalauduuegc-Tijni Work Phone: Start: 01-08-2021 Patient encounter procedure Neurosurgery Miguel Start: 12-31-2020 End: 01-01-2022 [facility] Comment on above: please place at beds geraldine for drain removal Start: 12-26-2020 End: 12-27-2021 Naloxone Injectable 0.4 mg IntraVenous Push Once ; (NARCAN)DOSE = 0.2 mg IntraVenous Push Once, PRN patient is unarousable, and respiratory rate lessClinician Notes: HOLD ACCOUNT CLERK Infusion and notify H.O. immediately Start: 26-Dec-2020 End: 26-Dec-2021 Ordered: 26-Dec-2020 Nabil Awan Intent Comments: HOLD ACCOUNT CLERK Infusion and notify H.O. immediately [facility] Comment on above: HOLD ACCOUNT CLERK Infusion an d notify H.O. immediately Immunizations Immunization Date Immunization Notes Care Provider Delfino chu 02-22-2020 tetanus toxoid, redu luis diphtheria toxoid, and acellular pertussis vaccine, adsorbed Danya Sisijacque [facility] 12-05-2018 hepatitis A vaccine, adult dosage Danya Zachery [facility] Payers Date Payer Category Payer Unknown 1973 Unknown [id number] 2.16. [id number] 1973 Unknown [id number] .. [id number] 1973 Unknown [id number] 2.16.84 0.1.935057.3.579.2.593 1973 Unknown [id number] 2.16.84 0.1.682499.3.579.2.593 1973 Unknown [id number] 2.16.84 0.1.569435.3.579.2.593 1973 Unknown [id number] 2.16.84 0.1.358094.3.579.2.593 1973 Unknown [id number] 2.16.84 0.1.024545.3.579.2.593 1973 Unknown [id number] 2.16.84 0.1.016594.3.579.2.593 1973 Unknown [id number] 2.16.84 0.1.146497.3.579.2.593 1973 Unknown [id number] 2.16.84 0.1.245458.3.579.2.593 1973 Unknown [id number] 2.16.84 0.1.746880.3.579.2.593 1973 Unknown [id number] 2.16.84 0.1.427884.3.579.2.593 1973 Unknown [id number] 2.16.84 0.1.128480.3.579.2.593 1973 Unknown [id number] 2.16.84 0.1.709527.3.579.2.593 1973 Unknown [id number] 2.16.84 0.1.114793.3.579.2.593 1973 Unknown [id number] 2.16.84 0.1.943256.3.579.2.593 1973 Unknown [id number] 2.16.84 0.1.576959.3.579.2.593 1973 Unknown [id number] 2.16.84 0.1.009093.3.579.2.593 1973 Unknown [id number] 2.16.84 0.1.645039.3.579.2.593 1973 Unknown [id number] 2.16.8 40.1.515288.3.579.2.727 1973 Unknown [id number] 2.16.8 40.1.314847.3.579.2.727 1973 Unknown [id number] 2.16.8 40.1.991760.3.579.2.727 1973 Unknown [id number] 2.16.8 40.1.303644.3.579.2.727 1973 Unknown [id number] 2.16.8 40.1.403130.3.579.2.727 1973 Unknown [id number] 2.16.8 40.1.346140.3.579.2.727 1973 Unknown [id number] 2.16.8 40.1.794260.3.579.2.727 1973 Unknown [id number] 2.16.8 40.1.617130.3.579.2.1046 1959 Unknown [id number] Social History Date Type Detail Facility [facility] Tobacco smoking consumption unknown [facility] History of drug use History of drug use M F-Mofktrmmqlul-BVIMY Work Phone: Start: 01-05-2016 Tobacco smoking status Smokes tobacco daily (finding) [facility] Comment on above: 1ppd 1ppd Sex Assigned At Female [facility] Medical Equipment Procedure Code Equipment Code Equipment Origin al Text Equipment Identifier Dates 2 EA, SubLingual , Daily, Refill(s) 0 Start: 01-05-2016 2 EA, SubLingual , Daily, Refill(s) 0 Start: 01-05-2016 2 EA, SubLingual , Daily, Refill(s) 0 Start: 01-05-2016 Functional Status Date Assessment Result Facility 11-26-2022 Functional Status N/A [facility] 07-16-2022 Functional Status N/A [facility] Functional observable [facility] Mental Status Date Assessment Result Facility 12-29-2020 Cognitive functi ons [id number] [facility] Clinical Notes 12-26-2020 to 11-26-2022 Note Date [...] Document Reviewed: 10/01/2017 Elsevier Patient Education 2019 [employer]. Follow Up Care 10/14/2022 11:11:52 With:Danya Bingham MD, URL, URO Address: When: Unknown [facility] 09-23-2022 Hospital Discharg e instructions [...] including vitamins, herbs, eye drops, creams, and yous-guq-wggolht medicines. Any problems you or family members [...] provider tells you to take them. Taking ogub-zaz-rajajig medicines, vitamins, herbs, and supplements. General instructions [...] Document Reviewed: 10/08/2019 Elsevier Patient Education 2020 [employer] Follow Up Care 08/31/2022 10:49:10 With:Zachery HARKINS, CAROLEE Anderson, URO Address: When: Unknown [facility] 07-16-2022 Hospital Discharg e instructions Patient [...] nerve stimulation). For women, using a medical artist to prevent urine leaks. This is a [...] right after experiencing incontinence. General instructions Take ovoh-tzd-xcrveyp and prescription medicines only as told by [...] 09/29/2005 Document Revised: 09/01/2018 Document Reviewed: 12/01/2017 [employer] Patient Education 2020 [employer] Follow Up Care 06/15/2022 11:30:52 With:Zachery HARKINS, CAROLEE Anderson, URO Address: When: Unknown [facility] 02-04-2022 Hospital Discharg e instructions Patient [...] nerve stimulation). For women, using a medical artist to prevent urine leaks. This is a [...] right after experiencing incontinence. General instructions Take ertq-fej-hnabpbj and prescription medicines only as told by [...] 09/29/2005 Document Revised: 09/01/2018 Document Reviewed: 12/01/2017 [employer] Patient Education 2020 [employer]. 02/04/2022 16:23:10 Calorie Counting for Weight Loss [...] 08/22/2006 Document Revised: 05/11/2019 Document Reviewed: 07/22/2017 [employer] Patient Education [employer]. Follow Up Care 02/04/2022 13:28:46 With:Danya Bingham MD, URL, URO Address: When: Unknown [facility] 01-11-2022 Evaluation + Plan note Extrac [...] and Plan Diagnosis Bowel and bladder incontinence (HLX80-JB R32, Billing Diagnosis, Medical). Incontinence without sensory awareness (HIG58-JT N39.42, Working, Medical). Diagnosis Bowel and bladder incontinence (XFT95-DB R32, Billing Diagnosis, Medical). Incontinence without sensory awareness (UPJ45-WL N39.42, Working, Medical). Addendum by Danya Bingham MD on January 11, 2022 10:23 EDT Post procedure diagnosis: Intrinsic sphincter deficiency, acontractile detrusor [facility]05-09-2022 Hospital Discharge instructions Patient Education 01/11/2022 [...] Up Care 01/06/2022 11:41:34 With:Danya Bingham Address: [facility] [address] [address]- [phone] Business (1) When: Unknown Comments:Call for followup appointment in 2-3 weeks With:Danya Bingham Address:Unknown When: Unknown [facility]05-04-2022 Hospital Discharge instructions Patient Education 01/06/2022 [...] clinics. Check with your local health department. [facility], where you would pay only what you can afford. To find one near you, check this website: [email or web address] [facility]. These are part of [...] information Learn more about cervical cancer from: [employer]: www.acog.org/Patients/FAQs/Cervical-Cancer [employer]: www.cancer.org/cancer/cervicalcancer/ U.S. Centers for Disease [...] 09/05/2016 Document Revised: 09/23/2018 Document Reviewed: 04/19/2017 [employer] Patient Education 2020 [employer]. Follow Up Care 11/20/2021 10:16:51 With:NIGEL GREEN, NATALIA Santillan, URL Address: 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 Instead, bend at knees to machine pecan picker objects (more content not included)...[facility]01-26-2022 NoteThis report has been cancelled.[facility]01-17-2022 NotePROCEDURE DETAILS Postoperative Diagnosis: lumbar stenosis Surgeon: Dr. Lex Frederick Resident/Fellow/Other It Project Manager: Chery Awan Procedure: posterior L4-L5 decompression posterior [...] Completion Last Updated: 22-Sep-2021 10:54 by Lex Frederick)[facility]01-17-2022 NoteHistory & Physical Reviewed: /Lactating: Are You [...] the note. I personally evaluated the patient [id number] Electronic Signatures: Lex Frederick) (Signed 21-Sep-2021 11:50) Authored: Note Completion Co-Signer: History & Physical Reviewed, ERAS, Consent, Note Completion Jaya Mosquera (Resident)) (Signed 21-Sep-2021 02:51) Authored: History & Physical Reviewed, ERAS, Consent, Note Completion Last Updated: 21-Sep-2021 11:50 by Lex Frederick) References: 1. Data Referenced From MRI Safety Screen v2 19-Sep-2021 19:00[facility]01-15-2022 NoteRehab: Info: Mode of Treatmentoccupational therapy; attempted; OT evaluation initiated with home set-up obtained (1st floor set up/ 0 step entry, lives with , tub shower with chair); Pt with low BP upon arrival 79/54. Second BP reading taken at 71/51. RN notified, further evaluation deferred at this time. OT to reattempt when pt medically appropriate. 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 Exploration of spinal [...] performed and the images transferred to the Gainspeed system for use in intraoperative image-guided computer-assisted [...] using the torque dri (more content not included)...[facility]01-14-2022 NoteThis report has been cancelled.[facility]01-14-2022 NoteHistory & Physical Reviewed: /Lactating: Are You [...] the note. I personally evaluated the patient [id number] Electronic Signatures: Fidel Maciel (Resident)) (Signed 17-Sep-2021 22:49) Authored: History & Physical Reviewed, ERAS, Consent, Note Completion Lex Frederick) (Signed 19-Sep-2021 10:17) Authored: Note Completion Co-Signer: History & Physical Reviewed, ERAS, Consent, Note Completion Last Updated: 19-Sep-2021 10:17 by Lex Frederick) References: 1. Data Referenced From MRI Safety Screen v2 17-Sep-2021 11:28[facility]01-11-2022 NoteReferral Information: Consult requested by (Attending Name): [...] be able to m (more content not included)...[facility]01-11-2022 NoteHistory of Present Illness: /Lactating: Are You [...] the note. I personally evaluated the patient [id number] Electronic Signatures: Fidel Maciel (Resident)) (Signed 15-Sep-2021 [...] Plan Last Updated: 16-Sep-2021 10:20 by Lex Frederick)[facility]04-23-2021 History of Present illness Narrative* I just had the pleasure of seeing Mrs. Raghav villarreal in the Neurosurgery Spine Clinic at the [facility]. She is a very pleasant 46-year-old [...] Ms. LEE care. * Lex Frederick MD, [facility], [facility] * Director - Minimally Invasive Spine Surgery * [facility] * Charge Loader of Neurological Surgery * [facility] [employer] * [place], [place] * Some of this note was completed using [employer]istic voice recognition technology and sometimes the software misinterprets words. This may include unintended errors with respect to translation of words, typographical errors or grammar errors which may not have been identified prior to finalization of the chart note. Please take this into account when reading this note. BU-Cjjjxhfwvxpn-Hmtwj Work Phone: [phone] Reason for referral (narrative)* Reason for Referral: Patient s/p posterior bilateral L1 transpedicular decompression, posterior T7-T8, T8-T9, T9-T10, T0-T11, T11-T12, T12-L1 hutton hernandez osteotomies, Posterior T5-L4 instrumentation and fusion on 12/26 [facility] Future Appointments Appointment Date:01/07/2022 11:00:00 AM Scheduled Provider: Location:[facility] Appointment Type:Urology CALL PAT FT Appointment Date:01/11/2022 08:00:00 AM Scheduled Provider: Location:[facility] Appointment Type:Urology FT Appointment Date:01/11/2022 09:00:00 AM Scheduled Provider: Location:[facility] Appointment Type:Urology FT [facility] evaluation + Plan [facility] Evaluation note* Neurological: mlayscx4htt 5/5 except hg/io4+ble 5/5incision cdiHead/Neck: Ox3, awake, alertBUE 5 prox, HG/IO4+BLE HF/KE/DF/PF/EHL 5 [facility]* Constitutional: in no acute distressSkin: Well perfusedEyes: OU 3RHead/Neck: atraumatic, normocephal icRespiratory/Thorax: airway intact, good chest expansionCardiovascular: normal rate, regular rhythmGastrointestinal: non-tenderNeurological: NAD, A&Ni9Kngbxor Nerves II-XII: PERRL, EOMI, Face symmetric, Facial SILT, Palate/Tongue midline and symmetric, shoulder shrugs symmetric, hearing intact to finger rubs bilaterallyMotor: RUE D5, B5, T5, HG5, IO5LUE D5, B5, T5, HG5, IO5RLE HF 4+, KE4+, PF4-, DF3LLE HF 4+, KE4+, PF3, DF4-Sensation: SILT throughout all extremitiesPsychological: mood appropriate [facility] Narrative No data available for this section [facility] Discharge instructions* Activity:activity as [...] Certification:Home Care Services Needed: yesSkilled Disciplines Ordered: RN/SURGICAL BRACE MAKER, PT, OTFace to Face Encounter Completed: yesDate of Encounter: [id number] Necessity for Homecare (based on clinical findings): [...] washing dishes, & loading the dryer or base cloth inspector until cleared by MD. * Wound Care:Inspect [...] Neurosurgeon:Physician/Dept/Service: PopeyeurgeDr Jake davilauled Date/Time: 08-Jan-2021 10:40Location[facility] [address] [place], [place]: [phone]: 2 week postop/wound check visit; Bring Insurance Card and Photo ID [facility] Dis[facility] instructions No data available for this section [facility] progress note No data available for this section [facility] reason for referral (narrative) , urinary incontinence, neurogenic bladder, open bladder neck, possible SP tube placement Referred by: Zachery HARKINS, Danya Rhodes [facility] Summary Purpose Family History No Family [...] section and content) DATE CREATED AUTHOR 06/20/2019 [facility] DATE CREATED AUTHOR AUTHOR'S ORGANIZ ATION 06/20/2019 [facility] DATE CREATED AUTHOR AUTHOR'S ORGANIZ ATION 07/26/2019 [facility] DATE CREATED AUTHOR AUTHOR'S ORGANIZ ATION 12/29/2020 [facility] DATE CREATED AUTHOR AUTHOR'S ORGANIZ ATION 09/16/2021 [employer] DATE CREATED AUTHOR AUTHOR'S ORGANIZ ATION 11/25/2021 [facility] DATE CREATED AUTHOR AUTHOR'S ORGANIZ ATION 12/10/2021 [facility] DATE CREATED AUTHOR AUTHOR'S ORGANIZ ATION 08/06/2022 [facility] DATE CREATED AUTHOR AUTHOR'S ORGANIZ ATION 01/17/2023 [facility] DATE CREATED AUTHOR AUTHOR'S ORGANIZ ATION 03/13/2023 [facility] DATE CREATED AUTHOR AUTHOR'S ORGANIZ ATION 06/09/2023 [facility] <item><item> Privacy Markings (unrecogniz ed section and [...] and content) Personnel Name: JATINDER STEWARDIKH Address: [address] [place] [address] Personnel Name: SHAIKH STEWARD Address: Address: [address] [place], [place] [address]HERSON Brynn [address] Personnel Name: SHAIKH STEWARD Address: Address: [address] [place], [place] [address] [address] Personnel Name: SHAIKH STEWARD Address: Address: [address] [place] [address] FOR RECORDS PERTAINING TO PATIENTS WHO ARE [...] BE BASED ON THE PRIMARY CLINICAL RECORDS. [facility] [employer] [facility]. provides no warranty or guarantee of the accuracy or completeness of information in this document.
--- NOTE | 2023-09-08 11:42 | ED_ITS ---
HPI - Female Genitourinary General Chief complaint: Urogenital-Female Stated complaint: UROGENITAL-FEMALE Time Seen by Provider: 09/08/23 11:19 Source: patient Mode of arrival: Wheelchair Limitations: no limitations History of Present Illness HPI Narrative: 48-year-old female presents because her Alvares catheter fell out. She does not happen but it happens frequently. She's had a catheter for about two years and s ees a urologist. She's also had a strong ammonia smell to her urine as well. No fever or vomiting. The catheter fell out today. Related Data Home Medications Medication Instructions Recorded Confirmed buprenorphine 8 mg-naloxone 2 mg 2.5 film sublingual Q24H 03/01/23 03/30/23 sublingual film bupropion HCl 150 mg 24 hr tablet, 150 mg PO DAILY 03/01/23 03/30/23 extended release cyclobenzaprine 10 mg tablet 10 mg PO Q8H 03/01/23 03/01/23 diazepam 5 mg tablet 5 mg PO Q8H PRN anxiety 03/30/23 03/30/23 furosemide 40 mg tablet 40 mg PO DAILY 03/30/23 03/30/23 gabapentin 800 mg tablet 800 mg PO TID 03/30/23 03/30/23 oxybutynin chloride 15 mg 15 mg PO DAILY 03/30/23 03/30/23 tablet,extended release 24 hr potassium bicarbonate-citric acid 20 meq PO BID 03/30/23 03/30/23 20 mEq effervescent tablet (Effer-K) promethazine 12.5 mg tablet 12.5 mg PO TID PRN nausea and 03/30/23 03/30/23 vomiting tizanidine 4 mg tablet 4 mg PO Q8H PRN muscle spasticity 03/30/23 03/30/23 zolpidem 12.5 mg tablet,extended 12.5 mg PO DAILY 03/30/23 03/30/23 release,multiphase Previous Rx's Medication Instructions Recorded levofloxacin 750 mg tablet 750 mg PO DAILY 7 days #7 tabs 03/30/23 cephalexin 500 mg capsule 500 mg PO QID 10 days #40 caps 09/08/23 Allergies Allergy/AdvReac Type Severity Reaction Status Date / Time codeine Allergy Severe Verified 09/08/23 11:22 Penicillins Allergy Severe Anaphylaxis Verified 09/08/23 11:22 quetiapine [From Seroquel] Allergy Severe Seizure Verified 09/08/23 11:22 Review of Systems ROS Narrative A ten point review of systems is negative except as noted above. PFSH PFSH Social History Smoking status: Current every day smoker Exam Narrative Exam Narrative: Nurses note and vital signs reviewed and patient is not hypoxic. General: The patient appears well and in no apparent distress. Patient is tearful at times. Skin: Warm, dry, no pallor noted. There is no rash noted. Head: Normocephalic, atraumatic Eye: Normal conjunctiva, no drainage Ears, Nose, Mouth, and Throat: oral mucosa is moist. Nares patent. Cardiovascular: Regular Rate and Rhythm Respiratory: Patient is in no distress, no accessory muscle use GI: nontender Musculoskeletal: The patient has no evidence of calf tenderness, no pitting edema, symmetrical pulses noted bilaterally Neurological: A&O x4, normal speech Psychiatric: Cooperative Constitutional Vital Signs, click to edit/add: Last Vital Signs Temp 98.2 F 09/08/23 11:20 Pulse 91 H 09/08/23 11:20 Resp 16 09/08/23 11:20 BP 172/89 H 09/08/23 11:20 Pulse Ox 97 09/08/23 11:20 O2 Del Method Room Air 09/08/23 11:20 Course Vital Signs Vital signs: Vital Signs Temperature 98.2 F 09/08/23 11:20 Pulse Rate 91 H 09/08/23 11:20 Respiratory Rate 16 09/08/23 11:20 Blood Pressure 172/89 H 09/08/23 11:20 Pulse Oximetry 97 09/08/23 11:20 Oxygen Delivery Method Room Air 09/08/23 11:20 Temperature 98.2 F 09/08/23 11:20 Pulse Rate 91 H 09/08/23 11:20 Respiratory Rate 16 09/08/23 11:20 Blood Pressure 172/89 H 09/08/23 11:20 Pulse Oximetry 97 09/08/23 11:20 Oxygen Delivery Method Room Air 09/08/23 11:20 MDM - Female Genitourinary MDM Narrative Medical decision making narrative: catheter is replaced. Urine culture ordered and she was prescribed Keflex. Findings are discussed with the patient. Differential Diagnosis Differential diagnosis: Likely urinary tract infection and other (Alvares catheter problem) Discharge Plan Discharge Chief Complaint: Urogenital-Female Clinical Impression: Urinary catheter (Alvares) change required Patient Disposition: Home, Self-Care Time of Disposition Decision: 11:41 Condition: Good Mode of Transportation: Private Vehicle Prescriptions / Home Meds: New cephalexin 500 mg capsule 500 mg PO QID 10 Days Qty: 40 0RF No Action diazepam 5 mg tablet 5 mg PO Q8H PRN (Reason: anxiety) furosemide 40 mg tablet 40 mg PO DAILY gabapentin 800 mg tablet 800 mg PO TID oxybutynin chloride 15 mg tablet extended release 24hr 15 mg PO DAILY Effer-K 20 mEq tablet, effervescent 20 meq PO BID promethazine 12.5 mg tablet 12.5 mg PO TID PRN (Reason: nausea and vomiting) tizanidine 4 mg tablet 4 mg PO Q8H PRN (Reason: muscle spasticity) zolpidem 12.5 mg tablet,ext release multiphase 12.5 mg PO DAILY Rx Instructions: HS levofloxacin 750 mg tablet 750 mg PO DAILY 7 Days Qty: 7 0RF bupropion HCl 150 mg tablet extended release 24 hr 150 mg PO DAILY buprenorphine-naloxone 8-2 mg film 2.5 film sublingual Q24H cyclobenzaprine 10 mg tablet 10 mg PO Q8H Stand Alone Forms: Portal Instructions Referrals: Shaikh Obrien MD [Primary Care Provider] - 1 week
--- NOTE | 2023-09-11 15:25 | PC.NURSE ---
09/11/23 1525 called pt updated on ua c+s explaining if continues with s/sx follow up with pcp for possible iv atb. per Fay [facility], pt upset and hung up phone on functional tester typewriters. Cirilo Grider RN
== END 2023-09-08 12:20 | disposition home or self-care (01) ==
PROVIDERS: Emergency Provider Emergency Medicine; PCP Internal Medicine
DX: Z46.6 Encounter for fitting and adjustment of urinary device (principal); R82.90 Unspecified abnormal findings in urine; Z79.899 Other long term (current) drug therapy; F17.210 Nicotine dependence, cigarettes, uncomplicated
CPT/HCPCS: 51702; 87086; 87150; 87186; 99284

== ENCOUNTER 2023-10-19 17:58 | Emergency (ER) | payer BC, SELFPAY ==
[2023-10-19 18:05] VITALS: BP 134/87; PULSE 79; RESP 14; TEMP 36.7; O2SAT 96; BMI 37.5
--- NOTE | 2023-10-19 18:07 | ED.FEMALEGU1 ---
HPI - Female Genitourinary General Chief complaint: Urogenital-Female Stated complaint: [employer] Problems Time Seen by Provider: 10/19/23 18:04 History of Present Illness HPI Narrative: 48-year-old female who has a chronic indwelling Alvares catheter presents because that catheter fell out. She states the balloon was still inflated. This is a frequent occurrence for this patient. No bleeding. This happened just before coming in to the emergency department. Related Data Home Medications Medication Instructions Recorded Confirmed buprenorphine 8 mg-naloxone 2 mg 2.5 film sublingual Q24H 03/01/23 03/30/23 sublingual film bupropion HCl 150 mg 24 hr tablet, 150 mg PO DAILY 03/01/23 03/30/23 extended release cyclobenzaprine 10 mg tablet 10 mg PO Q8H 03/01/23 03/01/23 diazepam 5 mg tablet 5 mg PO Q8H PRN anxiety 03/30/23 03/30/23 furosemide 40 mg tablet 40 mg PO DAILY 03/30/23 03/30/23 gabapentin 800 mg tablet 800 mg PO TID 03/30/23 03/30/23 oxybutynin chloride 15 mg 15 mg PO DAILY 03/30/23 03/30/23 tablet,extended release 24 hr potassium bicarbonate-citric acid 20 meq PO BID 03/30/23 03/30/23 20 mEq effervescent tablet (Effer-K) promethazine 12.5 mg tablet 12.5 mg PO TID PRN nausea and 03/30/23 03/30/23 vomiting tizanidine 4 mg tablet 4 mg PO Q8H PRN muscle spasticity 03/30/23 03/30/23 zolpidem 12.5 mg tablet,extended 12.5 mg PO DAILY 03/30/23 03/30/23 release,multiphase Previous Rx's Medication Instructions Recorded levofloxacin 750 mg tablet 750 mg PO DAILY 7 days #7 tabs 03/30/23 cephalexin 500 mg capsule 500 mg PO QID 10 days #40 caps 09/08/23 Allergies Allergy/AdvReac Type Severity Reaction Status Date / Time codeine Allergy Severe Verified 09/08/23 11:22 Penicillins Allergy Severe Anaphylaxis Verified 09/08/23 11:22 quetiapine [From Seroquel] Allergy Severe Seizure Verified 09/08/23 11:22 Review of Systems ROS Narrative A ten point review of systems is negative except as noted above. PFSH PFSH Social History Smoking status: Current every day smoker Exam Narrative Exam Narrative: Nurses note and vital signs reviewed and patient is not hypoxic. General: The patient appears well and in no apparent distress. Patient is resting comfortably on cart. Skin: Warm, dry, no pallor noted. There is no rash noted. Head: Normocephalic, atraumatic Eye: Normal conjunctiva, no drainage Ears, Nose, Mouth, and Throat: oral mucosa is moist. Nares patent. Cardiovascular: Regular Rate and Rhythm Respiratory: Patient is in no distress, no accessory muscle use GI: Soft and nontender Musculoskeletal: The patient has no evidence of calf tenderness, no pitting edema, symmetrical pulses noted bilaterally Neurological: A&O, normal speech Psychiatric: Cooperative Constitutional Vital Signs, click to edit/add: Last Vital Signs Temp 98.0 F 10/19/23 18:05 Pulse 79 10/19/23 18:05 Resp 14 10/19/23 18:05 BP 134/87 10/19/23 18:05 Pulse Ox 96 10/19/23 18:05 O2 Del Method Room Air 10/19/23 18:05 Course Vital Signs Vital signs: Vital Signs Temperature 98.0 F 10/19/23 18:05 Pulse Rate 79 10/19/23 18:05 Respiratory Rate 14 10/19/23 18:05 Blood Pressure 134/87 10/19/23 18:05 Pulse Oximetry 96 10/19/23 18:05 Oxygen Delivery Method Room Air 10/19/23 18:05 Temperature 98.0 F 10/19/23 18:05 Pulse Rate 79 10/19/23 18:05 Respiratory Rate 14 10/19/23 18:05 Blood Pressure 134/87 10/19/23 18:05 Pulse Oximetry 96 10/19/23 18:05 Oxygen Delivery Method Room Air 10/19/23 18:05 MDM - Female Genitourinary MDM Narrative Medical decision making narrative: Alvares catheter is placed by nursing staff and is functioning and she is able to be discharged. Differential Diagnosis Differential diagnosis: Likely other (Alvares catheter problem) Discharge Plan Discharge Chief Complaint: Urogenital-Female Clinical Impression: Urinary catheter (Alvares) change required Patient Disposition: Home, Self-Care Time of Disposition Decision: 18:07 Condition: Good Mode of Transportation: Private Vehicle Prescriptions / Home Meds: No Action diazepam 5 mg tablet 5 mg PO Q8H PRN (Reason: anxiety) furosemide 40 mg tablet 40 mg PO DAILY gabapentin 800 mg tablet 800 mg PO TID oxybutynin chloride 15 mg tablet extended release 24hr 15 mg PO DAILY Effer-K 20 mEq tablet, effervescent 20 meq PO BID promethazine 12.5 mg tablet 12.5 mg PO TID PRN (Reason: nausea and vomiting) tizanidine 4 mg tablet 4 mg PO Q8H PRN (Reason: muscle spasticity) zolpidem 12.5 mg tablet,ext release multiphase 12.5 mg PO DAILY Rx Instructions: HS levofloxacin 750 mg tablet 750 mg PO DAILY 7 Days Qty: 7 0RF bupropion HCl 150 mg tablet extended release 24 hr 150 mg PO DAILY buprenorphine-naloxone 8-2 mg film 2.5 film sublingual Q24H cyclobenzaprine 10 mg tablet 10 mg PO Q8H cephalexin 500 mg capsule 500 mg PO QID 10 Days Qty: 40 0RF Instructions: Alvares Catheter Placement and Care (ED) Stand Alone Forms: Portal Instructions Referrals: Shaikh Obrien MD [Primary Care Provider] - 1 week
--- OUTSIDE RECORDS SUMMARY | 2023-10-19 18:09 | XMS_ITS | CCD ---
Author Name Unknown Address [address] [place] [address] Organization [facility] Care Team Providers Care Rigger Supervisor Name Role Phone Required, No Pcp Unavailable Unavailable Lex Frederick Unavailable None, No PCP Unavailable Unavailable Unavailable Unavailable SHAIKH OBRIEN Primary Care Physician Yony Aguirre Unavailable Unavailable Neurosurgery Unavailable Unavailable Dr. LEX FREDERICK Admitting Unava ilable Dr. LEX FREDERICK Attending Unava ilable Patient, Unavailable Referring Unavailable Dr. Yony Aguirre Attending Unavailable FAWWAD, MENDOSA H Primary Care Unavailable PÉREZ PATINO Attending Unavailable PÉREZ PATINO Admitting Unavailable JON, DR ABHINAV Livignston Attending Unavailabl e FAWWAD, MENDOSA H Primary Care Unavailable JON, DR ABHINAV Livingston Admitting Unavailabl jacque WEBB, DR ABHINAV Livingston Consulting UnavailDR CLIF Cotton Admitting Unavailable DR CLIF HUTTON Consulting Unavailable FAWWAD, MENDOSA H Primary Care Unavailable URIAH, DR CLIF Santana Attending Unavailable IVON AMARO Admitting Unavailable IVON AMARO Consulting Unavailable FAWWAD, MENDOSA H Primary Care Unavailable IVON AMARO Attending Unavailable LALI BENITEZ Admitting Unavailable LALI BENITEZ Consulting Unavailable FAWWAD, MENDOSA H Primary Care Unavailable LALI BENITEZ Attending Unavailable FAWWAD, MENDOSA H Primary Care Unavailable LUE . DANYA M Admitting Unavailable LUE . DANYA M Attending Unavailable FAWWAD, MENDOSA H Primary Care Unavailable LUE ., DANYA M Admitting Unavailable LUE ., DANYA M Consulting Unavailable LUE ., DANYA M Attending Unavailable JON, DR ABHINAV Livingston Attending [facility]availabl e [facility] Unavailable REINECK, DR ABHINAV Livingston Admitting Unavailabl e REINECK, DR ABHINAV [place] Consulting Unavailabl e VETO ., IVON Admitting Unavailable VETO ., IVON Attending Unavailable [facility] Primary Care Unavailable PATRICK, DEBORAH Aponte Consulting Unavailable [facility] Primary Care Unavailable REINMAXINE, DR ABHINAV Livingston Admitting Unavailabl e REINECK, DR ABHINAV [place] Consulting Unavailabl e REINECK, DR ABHINAV [place] Attending Unavailabl e HAY ., DR LOW Admitting Unavailable [facility] Primary Care Unavailable HAY ., DR LOW Attending Unavailable ZIEBER, DR ENRIQUE Santana Consulting Unavailable HAY ., DR LOW Consulting Unavailable LUE ., DANYA M Admitting Unavailable LUE ., DANYA M Attending Unavailable [facility] Primary Care Unavailable [facility] Primary Care Unavailable LUE ., DANYA M Admitting Unavailable LUE ., DANYA M Consulting Unavailable LUE ., DANYA M Attending Unavailable CANDICE MATTA Consulting Unava ilable RACHEL CORREA Consulting Unavailable DIAB ., KYRA Admitting Unavailable [facility] Primary Care Unavailable DIAB ., KYRA Attending Unavailable GRECHNY ., BONITA HULL Consulting Unavailabl e [facility] Unavailable LUE ., DANYA M Admitting Unavailable LUE ., DANYA M Consulting Unavailable LUE ., DANYA M Attending Unavailable PAY ., DR RODRIGUEZ Admitting Unavailable PAY ., DR RODRIGUEZ Consulting Unavailable [facility] Primary Care Unavailable PAY ., DR RODRIGUEZ Attending Unavailable [facility] Primary Care Unavailable JON, DR ABHINAV Livingston Admitting Unavailabl e JON, DR ABHINAV [place] Consulting Unavailabl e JON, DR ABHINAV [place] Attending Unavailabl e KORIN STANLEY Consulting Unavailable [facility] Primary Care Unavailable Lue, Danya M. Attending Unavailable [facility] Primary Care Unavailable Lue, Danya M. Attending Unavailable [facility] Primary Care Unavailable Lue, Danya M. Attending Unavailable [facility] Care Unavailable Danya Bingham Attending Unavailable MICAH [facility] Unavailable Danya Bingham Attending Unavailable MICAH [facility] Unavailable Danya Bingham Attending Unavailable MICAH [facility] Unavailable Danya Bingham Attending Unavailable Young Hargrove Attending Unavailable MICAH [facility] Primary [facility] Unavailable Dr. Lex Frederick Attending [facility] Allergies Allergy Classification Reported Allergen(s) Allergy Type Date of Onset Reaction(s) Facility Opioid Agonists (1 source) Codeine Drug Allergy Unknown [facility] Penicillins (antibiotic) (1 source) Penicillin Drug Allergy Unknown [facility] QUEtiapine (1 source) QUEtiapine Drug Allergy Unknown [facility] (20 sources) Codeine; Translations: [Codeine] Drug Allergy 3 Hives [facility]: (20 sources) Penicillins; Translations: [Penicillins] Allergy to drug (finding) Hives, Unknown MG-Neurosurger [facility] Work Phone: (8 sources) Promethazine; Translations: [promethazine] Drug Allergy [facility] (1 source) QUEtiapine Drug Allergy Seizures [facility] (2 sources) Codeine Drug Allergy 3 The [...] [facility] (1 source) Penicillins Drug Allergy 3 Hives, GI intolerance [facility] (1 source) QUEtiapine Drug Allergy 3 Unknown [facility] Medications Current Medications Medication Drug Class(es) Dates [...] Ambrocio Izaguirre Start: 24-Sep-2021 Generic Substitution Allowed 24 hr buPROPion hydrochloride 150 mg extended release oral tablet (1 source) Aminoketone take 1 tablet by mouth every twenty-four hours in the morning buPROPion XL (Wellbutrin XL) 150 MG 24 hr tablet Take 1 tablet by mouth in the morning. Do not crush, chew, or split. . 0 Active calcium carbonate 1250 mg / cholecalciferol 200 [...] q12hr, # 2 cap(s), Refills(s) 0, [facility]: [id number], 156, cm, 07/16/22 10:58:00 EST, Height/Length Dosing, [...] day(s), # 2 tab(s), Refills(s) 0, Pharmacy: [address], 156, cm, 01/06/22 10:53:00 EDT, Height/Length Dosing, 78, kg, 01/06/22 10:53:00 EDT... Start Date: 01/06/22 Stop Date: 01/08/22 Status: Ordered diazePAM 5 mg oral tablet (20 sources) Benzodiazepine Start: 10-10-2023 End: 12-09-2023 take 1 tablet by mouth in the morning for pain, then take 1 tablet by mouth in the evening for pain, then take 1 tablet by mouth at bedtime for pain diazePAM (Valium) 5 MG tablet Indications: Chronic low back pain, unspecified back pain laterality, unspecified whether sciatica present Take 1 tablet (5 mg) by mouth in the morning and 1 tablet (5 mg) in the evening and 1 tablet (5 mg) before bedtime. For back pain/muscle spasm. 90 tablet 1 10/10/2023 12/09/2023 Active Start: 09-30-2021 End: 10-10-2023 take 1 tablet by mouth every eight [...] Start: 01-05-2016 take 1 tablet by marlen three times daily as needed for anxiety [...] sodium 50 mg delayed release oral tablet (17 sources) Nonsteroidal Anti-inflammatory Drug Start: 01-01-2021 diclofenac sodium 50 mg oral delayed release tablet ; 1 tab(s) orally 3 times a day-DO NOT RESTART THIS MEDICATION UNTIL CLEARED BY DR. FREDERICK Quantity: 0 Refills: 0 Ordered: 01-Jan-2021 Ambrocio Izaguirre Start: 01-Jan-2021 Generic Substitution Allowed Start: 10-28-2020 Voltaren 1 % G EL Quantity: 0 Refills: 0 Ordered: 28-Oct-2020 DO Start : 28-Oct-2020 Active diclofenac sodiu m (Voltaren Arthritis Pain) 1 % gel Apply 2 g topically in the morning and 2 g in the evening and 2 g before bedtime. externally. 0 Active diclofenac topic al 1% topical gel ; 1 milena topical prn Quantity: 0 Refills: 0 Ordered: 12-Dec-2020 Carole Mcdaniel Status: Discontinued Generic Substitution Allowed Voltaren ; 1 tab (s) oral Quantity: 0 Refills: 0 Ordered: 05-Dec-2020 Carole Mcdaniel Status: Discontinued Generic Substitution Allowed docusate sodium 50 mg / sennosides, prison 8.6 mg oral tablet (2 sources) Start: [...] taken with plenty o f water. DULoxetine 60 mg delayed release oral capsule (3 sources) Serotonin and Norepinephrine Reuptake Inhibitor Start: 07-20-2023 take 1 capsule by mouth in the morning DULoxetine (Cymbalta) [address] capsule Take 1 capsule by mouth in the morning. 0 07/20/2023 Active Start: 09-30-2021 take 1 capsule by mo [facility] once daily DULoxetine 30 mg oral delayed release capsule ; 1 cap(s) orally once a day Quantity: 0 Refills: 0 Ordered: 30-Sep-2021 Concetta Shi Start: 30-Sep-2021 Status: Discontinued Generic Substitution Allowed FLUoxetine 20 mg oral capsule (1 source) Serotonin Reuptake Inhibitor Start: 11-07-2022 take 1 capsule by mouth in the morning FLUoxetine (PROzac) 20 MG capsule Take 1 capsule by mouth in the morning. 0 11/07/2022 Active furosemide 40 mg oral tablet (3 sources) Loop Diuretic take 1 tablet by mouth every twenty-four hours as needed Lasix 40 MG tablet Take 1 tablet by mouth Daily as needed Leg edema 0 Active take 2 tablets by mo [facility] once daily as needed furosemide 20 mg oral tablet ; 2 tab(s) orally once a day, As Needed Quantity: 0 Refills: 0 Ordered: 15-Sep-2021 Enrique Egan Generic Substitution Allowed take 1 tablet by [facility] once daily as needed furosemide 20 mg oral tablet ; 1 tab(s) orally once a day, As Needed Quantity: 0 Refills: 0 Ordered: 01-Jan-2021 Ambrocio Izaguirre Generic Substitution Allowed gabapentin 800 mg oral tablet (20 sources) Anti-epileptic Agent Start: 09-22-2023 End: 12-21-2023 take 1 tablet by mouth in the morning, then take 1 tablet by mouth in the evening, then take 1 tablet by mouth at bedtime gabapentin (Neurontin) 800 MG tablet Indications: Chronic bilateral low back pain without sciatica Take 1 tablet (800 mg) by mouth in the morning and 1 tablet (800 mg) in the evening and 1 tablet (800 mg) before bedtime. 90 tablet 2 09/22/2023 12/21/2023 Active Start: 10-02-2021 End: 10-31-2021 take 1 tablet [...] Active Start: 01-05-2016 take 2 capsules by m out three times daily Neurontin 100 mg Cap 200 mg = 2 cap(s), Oral, TID, Refills(s) 0 Start Date: 01/05/16 Status: Ordered take 1 tablet by marlen three times daily gabapentin 800 mg oral tablet ; 1 tab(s) oral 3 times a day Quantity: 0 Refills: 0 Ordered: 12-Dec-2020 Carole Mcdaniel Generic Substitution Allowed Geritol oral tablet (7 [...] tab(s), Refills(s) 3, [facility]: [facility] [facility], 156, cm, 02/04/22 15:47:00 EDT, Height/Length Dosing, 78, kg, 02/04/22 15:47:00 EDT, Weight Dosing Start Date: 02/25/22 Status: Ordered nystatin 100 unt/mg topical powder (1 source) Polyene Antifungal Start: 03-07-2023 Nyamyc 020742 UNIT/GM powder Apply 1 application topically in the morning and 1 application in the evening and 1 application before bedtime. To affected area. 0 03/07/2023 Active omeprazole 40 mg delayed release oral capsule [...] # 30 tab(s), Refills(s) 11, [facility]: [facility] #[id number], 156, cm, 07/16/22 10:58:00 EST, Height/Length Dosing, 78, kg, 07/16/22 10:58:00 EST, Weight Dosing Start Date: 10/04/22 Status: Ordered Start: 07-16-2022 take 1 tablet by marlen once daily oxybutynin 10 mg ER Tab 10 mg = 1 tab(s), Oral, Daily, # 30 tab(s), Refills(s) 11, Pharmacy: [facility] #[id number], 156, cm, 07/16/22 10:58:00 EST, Height/Length Dosing, 78, kg, 07/16/22 10:58:00 EST, Weight Dosing Start Date: 07/16/22 Status: Ordered Start: 03-10-2022 take 1 tablet by [facility] once daily oxybutynin 10 mg ER Tab 10 mg = 1 tab(s), Oral, Daily, # 30 tab(s), Refills(s) 3, [facility]: [facility] [facility], 156, cm, 02/04/22 15:47:00 EDT, Height/Length [...] 07-Jan-2021 Generic Substitution Allowed polyethylene glycol 3350 54244 mg powder for oral solution (2 sources) [...] Enrique Egan Status: Discontinued Generic Substitution Allowed promethazine hydrochloride 12.5 mg oral tablet (2 sources) Phenothiazine Start: 06-27-2023 End: 10-12-2023 take 1 tablet by mouth every eight hours as needed for nausea and vomiting and nausea and nausea promethazine (Phenergan) 12.5 MG tablet Indications: Nausea in adult Take 1 tablet (12.5 mg) by mouth every 8 (eight) hours if needed for nausea or vomiting 30 tablet 1 10/12/2023 Active psyllium 3400 mg powder for oral suspension (1 source) psyllium (Metamucil) 28 % packet Take 1 packet by mouth in the morning. Mix and drink with at least 8 ounces of water or juice.. 0 Active RIGHT AFO (1 source) Start: 09-23-2021 RIGHT AFO ; - Orthotics to fit- M21.37 Quantity: 1 Refills: 0 Ordered: 23-Sep-2021 Ambrocio Izaguirre Start: 23-Sep-2021 Generic Substitution Allowed tiZANidine 4 mg oral tablet (2 sources) Central alpha-2 Adrenergic Agonist Start: 09-22-2023 End: 12-21-2023 take 1 tablet by mouth every eight hours for muscle spasms tiZANidine (Zanaflex) 4 MG tablet Indications: Chronic bilateral low back pain without sciatica Take 1 tablet (4 mg) by mouth every 8 (eight) hours if needed for muscle spasms 270 tablet 0 09/22/2023 12/21/2023 Active Start: 10-02-2021 take 1 tablet by marlen th every eight hours tiZANidine 2 mg oral [...] Daily, # 30 cap(s), Refills(s) 0, [facility] [address], 156, cm, 01/07/22 13:43:00 EDT, Height/Length Dosing, 78, kg, 01/06/22 10:53:00 EDT, Weight Dosing Start Date: 01/28/22 Status: Ordered zolpidem tartrate 12.5 mg extended release oral tablet (20 sources) gamma-Aminobutyri c Acid-ergic Agonist Start: 08-12-2023 End: 11-10-2023 take 1 tablet by mouth at bedtime zolpidem CR (Ambien CR) 12.5 MG ER tablet Indications: Psychophysiological insomnia Take 1 tablet (12.5 mg) by mouth at bedtime 30 tablet 2 08/12/2023 11/10/2023 Active Start: 09-30-2021 take 1 tablet by marlen th once at bedtime zolpidem 10 mg oral [...] 1 tablet by marlen th once daily cyclobenzaprine 5 mg oral tablet ; 1 tab(s) oral once a day Quantity: 0 Refills: 0 Ordered: 05-Dec-2020 Carole Mcdaniel Status: Discontinued Generic Substitution Allowed lisinopril 20 mg oral [...] take 1 tablet by marlen once daily lisinopril 20 mg oral tablet [...] food., # 2 cap(s), Refills(s) 0, Pharmacy: [facility] #[id number], 156, cm, 11/26/22 8:15:00 EDT, Height/Length Dosing, [...] Discontinued Generic Substitution Allowed polyethylene glycol 3350 308071 mg / potassium chloride 2970 mg / sodium bicarbonate 6740 mg / sodium chloride 5860 mg / sodium sulfate 78866 mg powder for oral solution (8 sources) [...] [Depression, unspecified] Onset: 10-02-2021 Nausea and vomiting (4 sources) Nausea; Translations: [Nausea] Onset: 11-09-2022 Episodic Other acquired deformities (12 [...] spine] Episodic Other aftercare (2 sources) Other m[facility]p (current) drug therapy; Translations: [Other m[facility]p (current) drug therapy] Onset: 06-07-2022 Episodic Other [...] Range Facility ED Note-Physicianon 03-14-20 ED Note-Physician [id number]#1.00CD:127 [facility] ED Note-Physicianon 01-23-20 ED Note-Physician [id number]#1.00CD:127 [facility] ED Note-Physician [id number]#1.00CD:127 [facility] Lab Reportson 01-22-2023 Lab Reports [id number]#[id number]:127 Normal [facility] Patient Correspondenceon Patient Correspondence [id number]#[id number]:127 Normal [facility] CULTURE URINEon 01-16-2023 CULTURE URINE Isolate 1 [...] R F Nitrofurantoin <=16 S F Normal [facility] Comment on above: Performed By: #### U MICRO, ERUR #### [facility] [address] [place] [address] Dr. Alfredo Lizama CBC AUTO DIFFon 01-13-2023 BASO # 0.1 103/ul Normal 0.0-0.1 [facility] Comment on above: Performed By: #### U MICRO, ERUR #### [facility] [address] [address] [address] Alfredo Lizama Basophils/100 WBC (Bld) 0.7 % Normal 0.2-2.0 [facility] Comment on above: Performed By: #### U MICRO, ERUR #### [facility] [address] [address] [address] Alfredo Lizama EO # 0.3 103/ul Normal 0.0-0.7 [facility] Comment on above: Performed By: #### U MICRO, ERUR #### [facility] [address] [place] [address] Dr. Alfredo Lizama Eosinophils/100 WBC (Bld) 3.2 % Normal 0.9-7.0 [facility] Comment on above: Performed By: #### U MICRO, ERUR #### [facility] [address] [place] [address] Dr. Alfredo Lizama Erythrocyte distribution width (RBC) [Ratio] 13.0 % Normal 11.0-15.0 [facility] Comment on above: Performed By: #### U MICRO, ERUR #### [facility] [address] [place] [address] Dr. Alfredo Lizama Hematocrit (Bld) [Volume fraction] 43.2 % Normal 36.0-48.0 [facility] Comment on above: Performed By: #### U MICRO, ERUR #### [facility] [address] [place] [address] Dr. Alfredo Lizama Hemoglobin (Bld) [Mass/Vol] 14.1 g/dL Normal 12.0-16.0 [facility] Comment on above: Performed By: #### U MICRO, ERUR #### [facility] [address] [place] [address] Dr. Alfredo Lizama IG # 0.02 10e3/ul Normal 0.00-0.03 [facility] Comment on above: Performed By: #### U MICRO, ERUR #### [facility] [address] [place] [address] Dr. Alfredo Lizama IG % 0.2 % Normal 0.0-0.5 [facility] Comment on above: Performed By: #### U MICRO, ERUR #### [facility] [address] [place] [address] Dr. Alfredo Lizama LYMPH # 3.0 103/ul Normal 1.2-3.8 [facility] Comment on above: Performed By: #### U MICRO, ERUR #### [facility] [address] [place] [address] Dr. Alfredo Lizama Lymphocytes/100 WBC (Bld) 35.6 % Normal 20.5-60.0 [facility] Comment on above: Performed By: #### U MICRO, ERUR #### [facility] [address] [place] [address] Dr. Alfredo Lizama MANUAL DIFF REQ NO Normal [facility] Comment on above: Performed By: #### U MICRO, ERUR #### [facility] [address] [place] [address] Dr. Alfredo Lizama MCH (RBC) [Entitic mass] 29.4 pg Normal 26.7-34.0 [facility] Comment on above: Performed By: #### U MICRO, ERUR #### [facility] [address] [place] [address] Dr. Alfredo Lizama MCHC (RBC) [Mass/Vol] 32.6 g/dL Normal 29.9-35.2 [facility] Comment on above: Performed By: #### U MICRO, ERUR #### [facility] [address] [place] [address] Dr. Alfredo Lizama MCV (RBC) [Entitic vol] 90.0 fL Normal 81.0-99.0 [facility] Comment on above: Performed By: #### U MICRO, ERUR #### [facility] [address] [place] [address] Dr. Alfredo Lizama MONO # 0.4 103/ul Normal 0.3-0.8 [facility] Comment on above: Performed By: #### U MICRO, ERUR #### [facility] [address] [place] [address] Dr. Alfredo Lizama Monocytes/100 WBC (Bld) 4.8 % Normal 1.7-12.0 [facility] Comment on above: Performed By: #### U MICRO, ERUR #### [facility] [address] [place] [address] Dr. Alfredo Lizama NEUT # 4.7 103/ul Normal 1.4-6.5 [facility] Comment on above: Performed By: #### U MICRO, ERUR #### [facility] [address] [place] [address] Dr. Alfredo Lizama Neutrophils/100 WBC (Bld) 55.5 % Normal 43.0-75.0 [facility] Comment on above: Performed By: #### U MICRO, ERUR #### [facility] [address] [place] [address] Dr. Alfredo Lizama Platelet mean volume (Bld) [Entitic vol] 9.5 fL Normal 9.5-13.5 [facility] Comment on above: Performed By: #### U MICRO, ERUR #### [facility] [address] [place] [address] Dr. Alfredo Lizama PLT 267 103/ul Normal 150-450 [facility] Comment on above: Performed By: #### U MICRO, ERUR #### [facility] [address] [place] [address] Dr. Alfredo Lizama RBC 4.80 106/ul Normal 4.20-5.40 [facility] Comment on above: Performed By: #### U MICRO, ERUR #### [facility] [address] [place] [address] Dr. Alfredo Lizama WBC 8.5 103/ul Normal 4.0-11.0 [facility] Comment on above: Performed By: #### U MICRO, ERUR #### [facility] [address] [place] [address] Dr. Alfredo Lizama ER URINE PROFILEon 3 Bilirubin Ql (U) Negative Normal NEGATIVE [facility] Comment on above: Performed By: #### Jacque ESTRADA UMICRO #### [facility] [address] [place] [address] Dr. Alfredo Lizama Clarity (U) CLOUDY Abnormal CLEAR [facility] Comment on above: Performed By: #### Jacque ESTRADA UMICRO #### [facility] [address] [place] [address] Dr. Alfredo Lizama Color (U) YELLOW Normal YELLOW [facility] Comment on above: Performed By: #### Jacque ESTRADA UMICRO #### [facility] [address] [place] [address] Dr. Alfredo LÓPEZD A micrscopic examina tion will be performed if indicated. Normal [facility] Comment on above: Performed By: #### Jacque ESTRADA UMICRO #### [facility] [address] [place] [address] Dr. Alferdo Lizama Glucose Ql (U) Negative Normal NEGATIVE [facility] Comment on above: Performed By: #### Jacque ESTRADA UMICRO #### [facility] [address] [place] [address] Dr. Alfredo Lizama Hemoglobin Ql (U) MODERATE Abnormal NEGATIVE [facility] Comment on above: Performed By: #### E RUR, UMICRO #### [facility] [address] [place] [address] Dr. Alfredo Lizama Ketones Ql (U) TRACE Abnormal NEGATIVE [facility] Comment on above: Performed By: #### E RUR, UMICRO #### [facility] [address] [place] [address] Dr. Alfredo Lizama LEUKOCYTES SMALL Abnormal NEGATIVE [facility] Comment on above: Performed By: #### E LONAR, UMICRO #### [facility] [address] [place] [address] Dr. Alfredo Lizama Nitrite Ql (U) Negative Normal NEGATIVE [facility] Comment on above: Performed By: #### E SEAN, UMICRO #### [facility] [address] [place] [address] Dr. Alfredo Lizmaa pH (U) 8.0 [pH] Normal 5-9 [facility] Comment on above: Performed By: #### Jacque ESTRADA, UMICRO #### [facility] [address] [place] [address] Dr. Alfredo Lizama Protein (U) [Mass/Vol] 100 mg/dL Abnormal NEGATIVE/ TRACE [facility] Comment on above: Performed By: #### Jacque ESTRADA, UMICRO #### [facility] [address] [place] [address] Dr. Alfredo Lizama SPEC GRAVITY 1.015 Normal 1.005-<=1.0 25 [facility] [facility] Comment on above: Performed By: #### E SEAN, UMICRO #### [facility] [address] [place] [address] Dr. Alfredo Lizama UR MICRO IND INDICATED Normal [facility] Comment on above: Performed By: #### E SEAN, UMICRO #### [facility] [address] [place] [address] Dr. Alfredo Lizama Urobilinogen Qn (U) 1.0 {Tesha'U}/dL Normal 0.2 - 1. 0 [facility] Comment on above: Performed By: #### E RURLINDA #### [facility] [address] [address] [address] Alfredo Lizama PROF CHEM 8 (BAS METB)on Anion gap [Moles/Vol] 8.4 mmol/L Normal [facility] Comment on above: Performed By: #### U MICRO, ERUR #### [facility] [address] [place] [address] Dr. Alfredo Lizama Calcium [Mass/Vol] 8.7 mg/dL Normal 8.5-10.1 [facility] Comment on above: Performed By: #### U MICRO, ERUR #### [facility] [address] [place] [address] Dr. Alfredo Lizama Chloride [Moles/Vol] 107 mmol/L Normal 98-107 [facility] Comment on above: Performed By: #### U MICRO, ERUR #### [facility] [address] [place] [address] Dr. Alfredo Lizama CO2 [Moles/Vol] 28.3 mmol/L Normal 21.0-32.0 [facility] Comment on above: Performed By: #### U MICRO, ERUR #### [facility] [address] [address] [address] Alfredo Lizama Creatinine [Mass/Vol] 0.70 mg/dL Normal 0.55-1.02 [facility] Comment on above: Performed By: #### U MICRO, ERUR #### [facility] [address] [address] [address] Alfredo Lizama EGFR-AF VINCENTIAN >60 Normal >=60 [facility] Comment on above: Performed By: #### U MICRO, ERUR #### [facility] [address] [place] [address] Dr. Alfredo Lizama EGFR-NON AF VINCENTIAN >60 Normal >=60 [facility] Comment on above: Performed By: #### U MICRO, ERUR #### [facility] [address] [place] [address] Dr. Alfredo Lizama Glucose [Mass/Vol] 97 mg/dL Normal 74-106 [facility] Comment on above: Performed By: #### U MICRO, ERUR #### [facility] [address] [place] [address] Dr. Alfredo Lizama Potassium [Moles/Vol] 3.7 mmol/L Normal 3.5-5.1 [facility] Comment on above: Performed By: #### U MICRO, ERUR #### [facility] [address] [place] [address] Dr. Alfredo Lizama Sodium [Moles/Vol] 140 mmol/L Normal 136-145 [facility] Comment on above: Performed By: #### U MICRO, ERUR #### [facility] [address] [place] [address] Dr. Alfredo Lizama Urea nitrogen [Mass/Vol] 7.0 mg/dL Normal 7.0-18.0 [facility] Comment on above: Performed By: #### U MICRO, ERUR #### [facility] [address] [place] [address] Dr. Alfredo Lizama Urea nitrogen/Creatinine [Mass ratio] 10.0 mg/mg Normal [facility] Comment on above: Performed By: #### U MICRO, ERUR #### [facility] [address] [place] [address] Dr. Alfredo Lizama URINE MICROSCOPIC ONLYon AMORPHOUS CRYSTALS FEW Normal [facility] Comment on above: Performed By: #### Jacque ESTRADA UMICRO #### [facility] [address] [place] [address] Dr. Alfredo Lizama BACTERIA LARGE Abnormal NONE SEEN [facility] Comment on above: Performed By: #### E RUR UMICRO #### [facility] [address] [place] [address] Dr. Alfredo Lizama Bacteria identified Cx Nom (U) INDICATED Normal [facility] Comment on above: Performed By: #### E RUR UMICRO #### [facility] [address] [place] [address] Dr. Alfredo Lizama CAST NONE SEEN Normal NONE SEEN [facility] Comment on above: Performed By: #### E SEAN UMICRO #### [facility] [address] [address] [address] Alfredo Lizama Crystals LM Nom (Urine sed) SEEN Abnormal NONE SEEN [facility] Comment on above: Performed By: #### E RUR, UMICRO #### [facility] [address] [address] [address] Alfredo Lizama Epithelial cells LM Ql (Urine sed) RARE Normal NONE SEEN /RARE [facility] Comment on above: Performed By: #### E RUR, UMICRO #### [facility] [address] [address] [address] Alfredo Lizama MUCOUS NONE SEEN Normal NONE SEEN [facility] Comment on above: Performed By: #### E RUR, UMICRO #### [facility] [address] [place] [address] Dr. Alfredo Lizama RBC 2-5 Abnormal 0-2 [facility] Comment on above: Performed By: #### E SEAN, UMICRO #### [facility] [address] [place] [address] Dr. Alfredo Lizama TRIPLE PHOS CRYSTALS FEW Normal [facility] Comment on above: Performed By: #### E LONAR, UMICRO #### [facility] [address] [place] [address] Dr. Alfredo Lizama WBC 75-100 Abnormal NONE SEEN [facility] Comment on above: Performed By: #### E SEAN, UMICRO #### [facility] [address] [place] [address] Dr. Alfredo Lizama [facility] (Inserted Image. Shelly ble to display) January 10, 2023 MORALES LEE [address] [place] [address] MORALES LEE 1975 Dear Morales, I am corresponding with you by certified mail because of repeat non compliance. You missed your catheter exchange appointment on 12/31/22. It is recommended your Alvares catheter be exchanged every 4 weeks to prevent encrustation and infection. Also you were referred to Dr Zhang at [facility] for further evaluation regarding your condition [...] Dr. Danya Bingham MD [facility] [address], [place] [address] Normal [facility] Lab Reportson 12-29-2022 Lab Reports [id number]:127 Normal [facility] Lab Reports [id number]:127 Normal [facility] Lab Reports [id number]:127 Normal [facility] CULTURE URINEon 12-25-2022 CULTURE URINE Isolate 1 [...] ERUR #### [facility] [address] [place] [address] Dr. Alfredo Lizama Retail - Clinical Noteon Retail - Clinical Note [id number]:127 Normal [facility] Patient Educationon 11-27-19 23 Patient Education Urology [...] Reviewed: 10/01/2017 Else[employer] Patient Education ? 2019 [employer]. Normal [facility] Retail - Clinical Noteon Retail - Clinical Note [id number]:127 Normal [facility] Urology Office/Clinic Noteon 11-26-2022 Urology Office/Clinic Note [...] with debris. Calcified catheter tip. New 18 Swedish two-way Alvares catheter inserted without difficulty. 15cc [...] understands and agrees with plan. -Refer to NH for possible SP catheter placement and/or bladder [...] as ab (more content not included)... Normal [facility] Comment on above: Result Comment: Elec tronically Signed By: Zachery HARKINS, Danya Rhodes\.br\Date and Time Signed: 11/26/22 08:53 EDT\.br\Electronically Co-Signed By: Yari Barron\.br\Date and Time Co-Signed: 11/26/22 08:44 EDT ED Note-Physicianon 11-12-19 ED Note-Physician [id number]#1.00CD:127 Normal [facility] AMYLASEon 11-09-2022 Amylase [Catalytic activity/Vol] 14 U/L Critically low 25-115 [facility] Comment on above: Performed By: #### U MICRO, ERUR #### [facility] [address] [address] [address] Alfredo Lizama CBC AUTO DIFFon 11-09-2022 BASO # 0.1 103/ul Normal 0.0-0.1 [facility] Comment on above: Performed By: #### U MICRO, ERUR #### [facility] [address] [address] [address] Alferdo Lizama Basophils/100 WBC (Bld) 0.8 % Normal 0.2-2.0 [facility] Comment on above: Performed By: #### U MICRO, ERUR #### [facility] [address] [place] [address] Dr. Alfredo Lizama EO # 0.2 103/ul Normal 0.0-0.7 [facility] Comment on above: Performed By: #### U MICRO, ERUR #### [facility] [address] [place] [address] Dr. Alfredo Lizama Eosinophils/100 WBC (Bld) 2.5 % Normal 0.9-7.0 [facility] Comment on above: Performed By: #### U MICRO, ERUR #### [facility] [address] [place] [address] Dr. Alfredo Lizama Erythrocyte distribution width (RBC) [Ratio] 12.7 % Normal 11.0-15.0 [facility] Comment on above: Performed By: #### U MICRO, ERUR #### [facility] [address] [place] [address] Dr. Alfredo Lizama Hematocrit (Bld) [Volume fraction] 46.3 % Normal 36.0-48.0 [facility] Comment on above: Performed By: #### U MICRO, ERUR #### [facility] [address] [place] [address] Dr. Alfredo Lizama Hemoglobin (Bld) [Mass/Vol] 15.9 g/dL Normal 12.0-16.0 [facility] Comment on above: Performed By: #### U MICRO, ERUR #### [facility] [address] [place] [address] Dr. Alfredo Lizama IG # 0.02 10e3/ul Normal 0.00-0.03 [facility] Comment on above: Performed By: #### U MICRO, ERUR #### [facility] [address] [place] [address] Dr. Alfredo Lizama IG % 0.2 % Normal 0.0-0.5 [facility] Comment on above: Performed By: #### U MICRO, ERUR #### [facility] [address] [address] [address] Alfredo Lizama LYMPH # 2.6 103/ul Normal 1.2-3.8 [facility] Comment on above: Performed By: #### U MICRO, ERUR #### [facility] [address] [address] [address] Alfredo Lizama Lymphocytes/100 WBC (Bld) 31.3 % Normal 20.5-60.0 [facility] Comment on above: Performed By: #### U MICRO, ERUR #### [facility] [address] [address] [address] Alfredo Lizama MANUAL DIFF REQ NO Normal [facility] Comment on above: Performed By: #### U MICRO, ERUR #### [facility] [address] [place] [address] Dr. Alfredo Lizama MCH (RBC) [Entitic mass] 29.3 pg Normal 26.7-34.0 [facility] Comment on above: Performed By: #### U MICRO, ERUR #### [facility] [address] [place] [address] Dr. Alfredo Lizama MCHC (RBC) [Mass/Vol] 34.3 g/dL Normal 29.9-35.2 [facility] Comment on above: Performed By: #### U MICRO, ERUR #### [facility] [address] [place] [address] Dr. Alfredo Lizama MCV (RBC) [Entitic vol] 85.4 fL Normal 81.0-99.0 [facility] Comment on above: Performed By: #### U MICRO, ERUR #### [facility] [address] [place] [address] Dr. Alfredo Lizama MONO # 0.6 103/ul Normal 0.3-0.8 [facility] Comment on above: Performed By: #### U MICRO, ERUR #### [facility] [address] [place] [address] Dr. Alfredo Lizama Monocytes/100 WBC (Bld) 6.6 % Normal 1.7-12.0 [facility] Comment on above: Performed By: #### U MICRO, ERUR #### [facility] [address] [address] [address] Alfredo Lizama NEUT # 4.9 103/ul Normal 1.4-6.5 [facility] Comment on above: Performed By: #### U MICRO, ERUR #### [facility] [address] [address] [address] Alfredo Lizama Neutrophils/100 WBC (Bld) 58.6 % Normal 43.0-75.0 [facility] Comment on above: Performed By: #### U MICRO, ERUR #### [facility] [address] [address] [address] Alfredo Lizama Platelet mean volume (Bld) [Entitic vol] 9.5 fL Normal 9.5-13.5 [facility] Comment on above: Performed By: #### U MICRO, ERUR #### [facility] [address] [place] [address] Dr. Alfredo Lizama PLT 273 103/ul Normal 150-450 [facility] Comment on above: Performed By: #### U MICRO, ERUR #### [facility] [address] [address] [address] Alfredo Lizama RBC 5.42 106/ul Critically high 4.20-5.40 [facility] Comment on above: Performed By: #### U MICRO, ERUR #### [facility] [address] [address] [address] Alfredo Lizama WBC 8.4 103/ul Normal 4.0-11.0 [facility] Comment on above: Performed By: #### U MICRO, ERUR #### [facility] [address] [address] [address] Alfredo Lizama CULTURE URINEon 11-09-2022 CULTURE URINE Culture Observations : MODERATE GROWTH OF MIXED GENITAL ROSANNA. NO POTENTIAL PATHOGENS SEEN. Normal [facility] Comment on above: Performed By: #### U MICRO, ERUR #### [facility] [address] [address] [address] Alfredo Lizama ER URINE PROFILEon 3 Bilirubin Ql (U) Negative Normal NEGATIVE [facility] Comment on above: Performed By: #### U MICRO, ERUR #### [facility] [address] [address] [address] Alfredo Lizama Clarity (U) CLEAR Normal CLEAR [facility] Comment on above: Performed By: #### U MICRO, ERUR #### [facility] [address] [address] [address] Alfredo Lizama Color (U) LT. YELLOW Normal YELLOW [facility] Comment on above: Performed By: #### U MICRO, ERUR #### [facility] [address] [address] [address] Alfredo Lizama ERUAHD A micrscopic examina tion will be performed if indicated. Normal [facility] Comment on above: Performed By: #### U MICRO, ERUR #### [facility] [address] [place] [address] Dr. Alfredo Lizama Glucose Ql (U) Negative Normal NEGATIVE [facility] Comment on above: Performed By: #### U MICRO, ERUR #### [facility] [address] [address] [address] Alfredo Lizama Hemoglobin Ql (U) MODERATE Abnormal NEGATIVE [facility] Comment on above: Performed By: #### U MICRO, ERUR #### [facility] [address] [place] [address] Dr. Alfredo Lizama Ketones Ql (U) Negative Normal NEGATIVE [facility] Comment on above: Performed By: #### U MICRO, ERUR #### [facility] [address] [address] [address] Alfredo Lizama LEUKOCYTES LARGE Abnormal NEGATIVE [facility] Comment on above: Performed By: #### U MICRO, ERUR #### [facility] [address] [address] [address] Alfredo Lizama Nitrite Ql (U) Negative Normal NEGATIVE [facility] Comment on above: Performed By: #### U MICRO, ERUR #### [facility] [address] [place] [address] Dr. Alfredo Lizama pH (U) 7.0 [pH] Normal 5-9 [facility] Comment on above: Performed By: #### U MICRO, ERUR #### [facility] [address] [place] [address] Dr. Alfredo Lizama SPEC GRAVITY 1.015 Normal 1.005-<=1.0 25 [facility] Comment on above: Performed By: #### U MICRO, ERUR #### [facility] [address] [place] [address] Dr. Alfredo Lizama UA PROTEIN Negative Normal NEGATIVE/ TRACE [facility] Comment on above: Performed By: #### U MICRO, ERUR #### [facility] [address] [place] [address] Dr. Alfredo Lizama UR MICRO IND INDICATED Normal [facility] Comment on above: Performed By: #### U MICRO, ERUR #### [facility] [address] [place] [address] Dr. Alfredo Lizama Urobilinogen Qn (U) 0.2 {Tesha'U}/dL Normal 0.2 - 1. 0 [facility] Comment on above: Performed By: #### U MICRO, ERUR #### [facility] [address] [place] [address] Dr. Alfredo Lizama LIPASEon 11-09-2022 Lipase [Catalytic activity/Vol] 34.0 U/L Critically low 73.0-393.0 [facility] Comment on above: Performed By: #### U MICRO, ERUR #### [facility] [address] [place] [address] Dr. Alfredo Lizama PROF 14(COMP METB)on 023 Albumin [Mass/Vol] 4.0 g/dL Normal 3.4-5.0 [facility] Comment on above: Performed By: #### U MICRO, ERUR #### [facility] [address] [place] [address] Dr. Alfredo Lizama Albumin/Globulin [Mass ratio] 1.0 {ratio} Normal [facility] Comment on above: Performed By: #### U MICRO, ERUR #### [facility] [address] [place] [address] Dr. Alfredo Lizama ALP [Catalytic activity/Vol] 206 U/L Critically high 46-116 [facility] Comment on above: Performed By: #### U MICRO, ERUR #### [facility] [address] [address] [address] Alfredo Lizama ALT [Catalytic activity/Vol] 53 U/L Normal 14-59 [facility] Comment on above: Performed By: #### U MICRO, ERUR #### [facility] [address] [address] [address] Alfredo Lizama Anion gap [Moles/Vol] 14.5 mmol/L Normal [facility] Comment on above: Performed By: #### U MICRO, ERUR #### [facility] [address] [address] [address] Alfredo Lizama AST [Catalytic activity/Vol] 55 U/L Critically high 15-37 [facility] Comment on above: Performed By: #### U MICRO, ERUR #### [facility] [address] [address] [address] Alfredo Lizama Bilirubin [Mass/Vol] 0.7 mg/dL Normal 0.2-1.0 [facility] Comment on above: Performed By: #### U MICRO, ERUR #### [facility] [address] [place] [address] Dr. Alfredo Lizama Calcium [Mass/Vol] 9.0 mg/dL Normal 8.5-10.1 [facility] Comment on above: Performed By: #### U MICRO, ERUR #### [facility] [address] [address] [address] Alfredo Lizama Chloride [Moles/Vol] 100 mmol/L Normal 98-107 [facility] Comment on above: Performed By: #### U MICRO, ERUR #### [facility] [address] [address] [address] Alfredo Lizama CO2 [Moles/Vol] 28.3 mmol/L Normal 21.0-32.0 [facility] Comment on above: Performed By: #### U MICRO, ERUR #### [facility] [address] [place] [address] Dr. Alfredo Lizama Creatinine [Mass/Vol] 0.65 mg/dL Normal 0.55-1.02 [facility] Comment on above: Performed By: #### U MICRO, ERUR #### [facility] [address] [place] [address] Dr. Alfredo Lizama EGFR-AF VINCENTIAN >60 Normal >=60 [facility] Comment on above: Performed By: #### U MICRO, ERUR #### [facility] [address] [address] [address] Alfredo Lizama EGFR-NON AF VINCENTIAN >60 Normal >=60 [facility] Comment on above: Performed By: #### U MICRO, ERUR #### [facility] [address] [place] [address] Dr. Alfredo Lizama Globulin (S) [Mass/Vol] 3.9 g/dL Normal [facility] Comment on above: Performed By: #### U MICRO, ERUR #### [facility] [address] [place] [address] Dr. Alfredo Lizama Glucose [Mass/Vol] 134 mg/dL Critically high 74-[address] [facility] Comment on above: Performed By: #### U MICRO, ERUR #### [facility] [address] [place] [address] Dr. Alfredo Lizama Potassium [Moles/Vol] 3.8 mmol/L Normal 3.5-5.1 [facility] Comment on above: Performed By: #### U MICRO, ERUR #### [facility] [address] [place] [address] Dr. Alfredo Lizama Protein [Mass/Vol] 7.9 g/dL Normal 6.4-8.2 [facility] Comment on above: Performed By: #### U MICRO, ERUR #### [facility] [address] [place] [address] Dr. Alfreod Lizama Sodium [Moles/Vol] 139 mmol/L Normal 136-145 [facility] Comment on above: Performed By: #### U MICRO, ERUR #### [facility] [address] [place] [address] Dr. Alfredo Lizama Urea nitrogen [Mass/Vol] 7.0 mg/dL Normal 7.0-18.0 [facility] Comment on above: Performed By: #### U MICRO, ERUR #### [facility] [address] [place] [address] Dr. Alfredo Lizama Urea nitrogen/Creatinine [Mass ratio] 10.7 mg/mg Normal [facility] Comment on above: Performed By: #### U MICRO, ERUR #### [facility] [address] [address] [address] Alfredo Lizama URINE MICROSCOPIC ONLYon BACTERIA TRACE Abnormal NONE SEEN [facility] Comment on above: Performed By: #### U MICRO, ERUR #### [facility] [address] [place] [address] Dr. Alfredo Lizama Bacteria identified Cx Nom (U) INDICATED Normal [facility] Comment on above: Performed By: #### U MICRO, ERUR #### [facility] [address] [place] [address] Dr. Alfredo Lizama CAST NONE SEEN Normal NONE SEEN [facility] Comment on above: Performed By: #### U MICRO, ERUR #### [facility] [address] [place] [address] Dr. Alfredo Lizama Crystals LM Nom (Urine sed) NONE SEEN Normal NONE SEEN [facility] Comment on above: Performed By: #### U MICRO, ERUR #### [facility] [address] [place] [address] Dr. Alfredo Lizama Epithelial cells LM Ql (Urine sed) FEW Abnormal NONE SEEN /RARE [facility] Comment on above: Performed By: #### U MICRO, ERUR #### [facility] [address] [place] [address] Dr. Alfredo Lizama MUCOUS NONE SEEN Normal NONE SEEN [facility] Comment on above: Performed By: #### U MICRO, ERUR #### [facility] [address] [place] [address] Dr. Alfredo Lizama RBC 20-50 Abnormal 0-2 [facility] Comment on above: Performed By: #### U MICRO, ERUR #### [facility] [address] [place], [place] [address] Dr. Alfredo Lizama WBC 20-50 Abnormal NONE SEEN [facility] [facility] Comment on above: Performed By: #### U MICRO, ERUR #### [facility] [id number] Alfredo Lizama XR ABD FLAT_UPon 11-09-2022 [...] by: ENRIQUE LOWE Date: 2022-11-09 11:06 Normal [facility] ED Note-Physicianon 11-06-19 ED Note-Physician [id number]:127 Normal [facility] Lab Reportson 11-05-2022 Lab Reports [id number]:127 Normal [facility] CULTURE URINEon 10-18-2022 CULTURE URINE Isolate 1 [...] F Trimethoprim/Sulfamethoxazo le <=10 S F Normal [facility] Comment on above: Performed By: #### U MICRO ERUR #### [facility] [address] [place] [address] Dr. Alfredo Lizama Retail - Clinical Noteon Retail - Clinical Note [id number]:127 Normal [facility] ER URINE PROFILEon 3 Bilirubin Ql (U) Negative Normal NEGATIVE [facility] Comment on above: Performed By: #### Jacque ESTRADA UMICRO #### [facility] [address] [place] [address] Dr. Alfredo Lizama Clarity (U) CLEAR Normal CLEAR [facility] Comment on above: Performed By: #### Jacque ESTRADA UMICRO #### [facility] [address] [place] [address] Dr. Alfredo Lizama Color (U) YELLOW Normal YELLOW [facility] Comment on above: Performed By: #### Jacque ESTRADA UMICRO #### [facility] [address] [place] [address] Dr. Alfredo BESTAHDane A micrscopic examina tion will be performed if indicated. Normal [facility] Comment on above: Performed By: #### Jacque ESTRADA UMICRO #### [facility] [address] [place] [address] Dr. Alfredo Lizama Glucose Ql (U) Negative Normal NEGATIVE [facility] Comment on above: Performed By: #### Jacque ESTRADA UMICRO #### [facility] [address] [place] [address] Dr. Alfredo Lizama Hemoglobin Ql (U) LARGE Abnormal NEGATIVE [facility] Comment on above: Performed By: #### FER CHAVESICRO #### [facility] [address] [place] [address] Dr. Alfredo Lizama Ketones Ql (U) Negative Normal NEGATIVE [facility] Comment on above: Performed By: #### Jacque ESTRADA UMICRO #### [facility] [address] [place] [address] Dr. Alfredo Lizama LEUKOCYTES LARGE Abnormal NEGATIVE [facility] Comment on above: Performed By: #### Jacque ESTRADA UMICRO #### [facility] [address] [place] [address] Dr. Alfredo Lizama Nitrite Ql (U) Positive Abnormal NEGATIVE [facility] Comment on above: Performed By: #### CHINMAY HCAVESRO #### [facility] [address] [place] [address] Dr. Alfredo Lizama pH (U) 6.5 [pH] Normal 5-9 [facility] Comment on above: Performed By: #### CHINMAY CHAVESRO #### [facility] [address] [place] [address] Dr. Alfredo Lizama Protein (U) [Mass/Vol] 100 mg/dL Abnormal NEGATIVE/ TRACE [facility] Comment on above: Performed By: #### CHINMAY CHAVESRO #### [facility] [address] [place] [address] Dr. Alfredo Lizama SPEC GRAVITY 1.010 Normal 1.005-<=1.[address] [place] [address] Comment on above: Performed By: #### Jacque ESTRADA UMICRO #### [facility] [address] [place] [address] Dr. Alfredo Lizama UR MICRO IND INDICATED Normal [facility] Comment on above: Performed By: #### FER CHAVESICRO #### [facility] [address] [place] [address] Dr. Alfredo Lizama Urobilinogen Qn (U) 1.0 {Tesha'U}/dL Normal 0.2 - 1. 0 [facility] Comment on above: Performed By: #### LINDA CHAVES #### [facility] [address] [address] [address] Alfredo Lizama URINE MICROSCOPIC ONLYon BACTERIA MODERATE Abnormal NONE SEEN [facility] Comment on above: Performed By: #### U MICRO, ERUR #### [facility] [address] [address] [address] Alfredo Lizama Bacteria identified Cx Nom (U) INDICATED Normal [facility] Comment on above: Performed By: #### U MICRO, ERUR #### [facility] [address] [place] [address] Dr. Alfredo Lizama CA OX CRYSTALS RARE Normal [facility] Comment on above: Performed By: #### U MICRO, ERUR #### [facility] [address] [place] [address] Dr. Alfredo Lizama CAST NONE SEEN Normal NONE SEEN [facility] Comment on above: Performed By: #### U MICRO, ERUR #### [facility] [address] [address] [address] Alfredo Lizama Crystals LM Nom (Urine sed) SEEN Abnormal NONE SEEN [facility] Comment on above: Performed By: #### U MICRO, ERUR #### [facility] [address] [place] [address] Dr. Alfredo Lizama Epithelial cells LM Ql (Urine sed) MODERATE Abnormal NONE SEEN /RARE [facility] Comment on above: Performed By: #### U MICRO, ERUR #### [facility] [address] [place] [address] Dr. Alfredo Lizama MUCOUS TRACE Abnormal NONE SEEN [facility] Comment on above: Performed By: #### U MICRO, ERUR #### [facility] [address] [address] [address] Alfredo Lizama RBC 20-50 Abnormal 0-2 [facility] Comment on above: Performed By: #### U MICRO, ERUR #### [facility] [address] [place] [address] Dr. Alfredo Lizama WBC 50-75 Abnormal NONE SEEN [facility] Comment on above: Performed By: #### U MICRO, ERUR #### [facility] [address] [address] [address] Alfredo Lizama Patient Educationon 09-23-19 Patient [...] including vitamins, herbs, eye drops, creams, and urit-vez-tacubsn medicines. ? Any problems you or family [...] tells you to take them. ? Taking zvjd-qkk-tuhqtud medicines, vitamins, herbs, and supplements. General instructions [...] What happens (more content not included)... Normal [facility] Provider Letteron 09-09-2022 Provider Letter (Inserted Image. Shelly ble to display) September 09, 2022 MORALES LEE [address] [place] [address] MORALES LEE 1975 Dear Morales Lee , We have been trying to reach you with no success. It is important that you return our call upon receiving this letter. Also, at the time of your call, please provide us with your current information. Thank you for your prompt attention to this matter. Sincerely, [facility] [address] [address] [facility] Operative Reporton Operative Report [id number]:127 Normal [facility] Lab Reportson 08-26-2022 Lab Reports [id number]#1.00CD:127 [facility]-06 SARS-CoV-2 (COVID-19) RNA ADRIÁN+probe Ql (Unsp [...] for this test is supported by the [place] of Health and Human Service's declaration that [...] ERUR #### [facility] [address] [place] [address] Dr. Alfredo Lizama CBC AUTO DIFFon 08-24-2022 BASO # 0.1 103/ul Normal 0.0-0.1 [facility] Comment on above: Performed By: #### C BC #### [facility] [address] [place] [address] Dr. Alfredo Lizama Basophils/100 WBC (Bld) 0.8 % Normal 0.2-2.0 [facility] Comment on above: Performed By: #### C BC #### [facility] [address] [place] [address] Dr. Alfredo Lizama EO # 0.3 103/ul Normal 0.0-0.7 [facility] Comment on above: Performed By: #### C BC #### [facility] [address] [place] [address] Dr. Alfredo Lizama Eosinophils/100 WBC (Bld) 3.1 % Normal 0.9-7.0 [facility] Comment on above: Performed By: #### C BC #### [facility] [address] [place] [address] Dr. Alfredo Lizama Erythrocyte distribution width (RBC) [Ratio] 13.4 % Normal 11.0-15.0 [facility] Comment on above: Performed By: #### C BC #### [facility] [address] [place] [address] Dr. Alfredo Lizama Hematocrit (Bld) [Volume fraction] 47.2 % Normal 36.0-48.0 [facility] Comment on above: Performed By: #### C BC #### [facility] [address] [place] [address] Dr. Alfredo Lizama Hemoglobin (Bld) [Mass/Vol] 15.6 g/dL Normal 12.0-16.0 [facility] Comment on above: Performed By: #### C BC #### [facility] [address] [place] [address] Dr. Alfredo Lizama IG # 0.02 10e3/ul Normal 0.00-0.03 [facility] Comment on above: Performed By: #### C BC #### [facility] [address] [place] [address] Dr. Alfredo Lizama IG % 0.2 % Normal 0.0-0.5 [facility] Comment on above: Performed By: #### C BC #### [facility] [address] [place] [address] Dr. Alfredo Lizama LYMPH # 4.4 103/ul Critically high 1.2-3.8 [facility] Comment on above: Performed By: #### C BC #### [facility] [address] [place] [address] Dr. Alfredo Lizama Lymphocytes/100 WBC (Bld) 42.3 % Normal 20.5-60.0 [facility] Comment on above: Performed By: #### C BC #### [facility] [address] [place] [address] Dr. Alfredo Lizama MANUAL DIFF REQ NO Normal [facility] Comment on above: Performed By: #### C BC #### [facility] [address] [place] [address] Dr. Alfredo Lizama MCH (RBC) [Entitic mass] 28.8 pg Normal 26.7-34.0 [facility] Comment on above: Performed By: #### C BC #### [facility] [address] [place] [address] Dr. Alfredo Lizama MCHC (RBC) [Mass/Vol] 33.1 g/dL Normal 29.9-35.2 [facility] Comment on above: Performed By: #### C BC #### [facility] [address] [place] [address] Dr. Alfredo Lizama MCV (RBC) [Entitic vol] 87.2 fL Normal 81.0-99.0 [facility] Comment on above: Performed By: #### C BC #### [facility] [address] [place] [address] Dr. Alfredo Lizama MONO # 0.6 103/ul Normal 0.3-0.8 [facility] Comment on above: Performed By: #### C BC #### [facility] [address] [place] [address] Dr. Alfredo Lizama Monocytes/100 WBC (Bld) 5.3 % Normal 1.7-12.0 [facility] Comment on above: Performed By: #### C BC #### [facility] [address] [place] [address] Dr. Alfredo Lizama NEUT # 5.0 103/ul Normal 1.4-6.5 [facility] Comment on above: Performed By: #### C BC #### [facility] [address] [place] [address] Dr. Alfredo Lizama Neutrophils/100 WBC (Bld) 48.3 % Normal 43.0-75.0 [facility] Comment on above: Performed By: #### C BC #### [facility] [address] [place] [address] Dr. Alfredo Lizama Platelet mean volume (Bld) [Entitic vol] 9.9 fL Normal 9.5-13.5 [facility] Comment on above: Performed By: #### C BC #### [facility] [address] [place] [address] Dr. Alfredo Lizama PLT 298 103/ul Normal 150-450 [facility] Comment on above: Performed By: #### C BC #### [facility] [address] [place] [address] Dr. Alfredo Lizama RBC 5.41 106/ul Critically high 4.20-5.40 [facility] Comment on above: Performed By: #### C BC #### [facility] [address] [place] [address] Dr. Alfredo Lizama WBC 10.3 103/ul Normal 4.0-11.0 [facility] Comment on above: Performed By: #### C BC #### [facility] [address] [place] [address] Dr. Alfredo Lizama PROF CHEM 8 (BAS METB)on Anion gap [Moles/Vol] 14.3 mmol/L Normal [facility] Comment on above: Performed By: #### U MICRO, ERUR #### [facility] [address] [place] [address] Dr. Alfredo Lizama Calcium [Mass/Vol] 9.1 mg/dL Normal 8.5-10.1 [facility] Comment on above: Performed By: #### U MICRO, ERUR #### [facility] [address] [place] [address] Dr. Alfredo Lizama Chloride [Moles/Vol] 99 mmol/L Normal 98-107 [facility] Comment on above: Performed By: #### U MICRO, ERUR #### [facility] [address] [place] [address] Dr. Alfredo Lizama CO2 [Moles/Vol] 29.0 mmol/L Normal 21.0-32.0 [facility] Comment on above: Performed By: #### U MICRO, ERUR #### [facility] [address] [place] [address] Dr. Alfredo Lizama Creatinine [Mass/Vol] 0.70 mg/dL Normal 0.55-1.02 [facility] Comment on above: Performed By: #### U MICRO, ERUR #### [facility] [address] [place] [address] Dr. Alfredo Lizama EGFR-AF VINCENTIAN >60 Normal >=60 [facility] Comment on above: Performed By: #### U MICRO, ERUR #### [facility] [address] [place] [address] Dr. Alfredo Lizama EGFR-NON AF VINCENTIAN >60 Normal >=60 [facility] Comment on above: Performed By: #### U MICRO, ERUR #### [facility] [address] [place] [address] Dr. Alfredo Lizama Glucose [Mass/Vol] 121 mg/dL Critically high 74-[address] [facility] Comment on above: Performed By: #### U MICRO, ERUR #### [facility] [address] [place] [address] Dr. Alfredo Lizama Potassium [Moles/Vol] 3.3 mmol/L Critically low 3.5-5.1 [facility] Comment on above: Performed By: #### U MICRO, ERUR #### [facility] [address] [place] [address] Dr. Alfredo Lizama Sodium [Moles/Vol] 139 mmol/L Normal 136-145 [facility] Comment on above: Performed By: #### U MICRO, ERUR #### [facility] [address] [place] [address] Dr. Alfredo Lizama Urea nitrogen [Mass/Vol] 5.0 mg/dL Critically low 7.0-18.0 [facility] Comment on above: Performed By: #### U MICRO, ERUR #### [facility] [address] [place] [address] Dr. Alfredo Lizama Urea nitrogen/Creatinine [Mass ratio] 7.1 mg/mg Normal [facility] Comment on above: Performed By: #### U MICRO, ERUR #### [facility] [address] [place] [address] Dr. Alfredo Lizama PROTIMEon 08-24-2022 INR Coag (PPP) [Relative time] 0.99 {INR} Normal [facility] Comment on above: Performed By: #### P T, PTT #### [facility] [address] [place] [address] Dr. Alfredo Lizama INR GUIDELINES SEE BELOW Normal [facility] Comment on above: Result Comment: MARY JO RED INR: 2.0 - 3.0 CONDITIONS NOT LISTED BELOW 2.5 - 3.5 FOR PROSTHETIC HEART VALVE REPLACEMENT 2.5 - 3.5 RECURRENT THROMBOSIS Performed By: #### P T, PTT #### [facility] [address] [place] [address] Dr. Alfredo Lizama PT Coag (PPP) [Time] 10.7 s Normal 9.0-11.6 [facility] Comment on above: Performed By: #### P T, PTT #### [facility] [address] [place] [address] Dr. Alfredo Lizama PTTon 08-24-2022 aPTT Coag (Bld) [Time] 31.7 s Normal 22.3-36.2 [facility] Comment on above: Performed By: #### P T, PTT #### [facility] [address] [place] [address] Alfredo Lizama Physician Orderon 08-24-2022 Physician Order [id number]#1.00CD:127 Normal [facility] Retail - Clinical Noteon Retail - Clinical Note [id number]#1.00CD:127 Normal [facility] Patient Educationon 07-16-20 Patient Education Urology Urinary [...] stimulation). ? For women, using a medical interpreter to prevent urine leaks. This is a [...] after experiencing incontinence. General instructions ? Take baqy-brd-azcmuyj and prescription medicines only as (more content not included)... Normal [facility] Pre-Certification Formon Pre-Certification Form [id number]#[id number]:127 Normal [facility] Urology Office/Clinic Noteon 07-16-2022 Urology Office/Clinic Note [...] of temp indwelling bladder cath (alvares) simple 66988 2. 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 Normal [facility] Comment on above: Result Comment: Elec tronically Signed By: Danya Bingham MD\.br\Date and Time Signed: 07/16/22 13:13 EST\.br\Electronically Co-Signed By: Yari Barron\.br\Date and Time Co-Signed: 07/16/22 12:16 EST Reminderson 07-06-2022 Reminders - From: Sandra Kessler To: EU - Recalls Zachery; Sandra Kessler; Sent: 03/26/2022 11:47:40 EDT Show up: 04/16/2022 11:47:00 EDT Subject: 4 week cath change Reminder/Recall schedule 4 week cath change at [facility]. alvares cath was changed at [facility] ER on 03/30/22, pt will be due 04/30/22 for next alvares cath change alvares was replaced on 04-08-22 at ER From: Nicole Kuo MA (SHAHZAD - Vijay Bingham) To: EU - Clinical; Sent: 04/28/2022 15:01:31 EDT Show up: 04/28/2022 15:00:00 EDT Subject: RE: 4 week cath change Hey can you guys call her and get her scheduled for a cath change with [facility] or [facility]? her catheter changes need to be done at [facility] because she needs lift/assistance. will schedule this faxed order/form to [facility] to be scheduled week of 05/10/22 per Jose at [facility] they have tried calling patient to schedule, no response. I tried calling patient today, no answer, unable to leave VM- phone just kept ringing. Patient had her catheter changed at [facility] ER on 05/07/22, due in 4 weeks unless s/p tube gets placed before then Order faxed to [facility] for patients cath change to be scheduled at [facility]. will track. From: Sandra Kesslre To: SHAHZAD Bingham; Sent: 06/08/2022 08:26:14 EDT Show up: 06/08/2022 08:26:00 EDT Subject: RE: 4 week cath change other message in patient has upcoming appt 07-16-[address] Bingham, she still has not scheduled her cath change Normal [facility] Formson 06-08-2022 Forms [id number]#[id number]:127 Normal [facility] Physician Orderon 06-08-2022 Physician Order [id number]#1.00CD:127 Normal [facility] BN SACRUM/COCCYX, MIN 2 VIEW Son 06-07-2022 [...] 09/20/2019. Thoracolumbar spine radiographs 09/08/2021. ACCESSION NUMBER(S): [id number]; [id number]; [id number] ORDERING CLINICIAN: CANDICE PEREZ FINDINGS: Three views [...] Electronically signed by: GOMEZ JAMA MD Normal [facility] BN SPINE, LUMBOSACRAL; 2 OR 3 VIEWSon [...] 09/20/2019. Thoracolumbar spine radiographs 09/08/2021. ACCESSION NUMBER(S): [id number]; [id number]; [id number] ORDERING CLINICIAN: CANDICE PEREZ FINDINGS: Three views [...] stated. Electronically signed by: GOMEZ JAMA MD [facility] BN SPINE, THORACIC, 3 VIEWSo n [...] 09/20/2019. Thoracolumbar spine radiographs 09/08/2021. ACCESSION NUMBER(S): [id number]; [id number]; [id number] ORDERING CLINICIAN: CANDICE PEREZ FINDINGS: Three views [...] Electronically signed by: GOMEZ JAMA MD Normal [facility] CBC AND DIFFERENTIALon 06-07 % AUTOMATED IMMATURE GRAN 0.2 % Normal 0.0 - 0.9 [facility] Comment on above: Result Comment: Jaleesa ture Granulocyte Count (IG) includes promyelocytes, myelocytes and metamyelocytes but does not include bands. Percent differential counts (%) should be interpreted in the context of the absolute cell counts (cells/L). Performed By: #### R ENAL #### [facility] [address] [place] [address] Basophils (Bld) [#/Vol] 0.09 10*3/uL Normal 0.00 - 0.10 [facility] Comment on above: Performed By: #### R ENAL #### [facility] [address] [place] [address] Basophils/100 WBC (Bld) 1.0 % Normal 0.0 - 2.0 [facility] Comment on above: Performed By: #### R ENAL #### [facility] [address] [place] [address] Eosinophils (Bld) [#/Vol] 0.24 10*3/uL Normal 0.00 - 0.70 [facility] Comment on above: Performed By: #### R ENAL #### [facility] [address] [place] [address] Eosinophils/100 WBC (Bld) 2.6 % Normal 0.0 - 6.0 [facility] Comment on above: Performed By: #### R ENAL #### [facility] [address] [place] [address] Erythrocyte distribution width (RBC) [Ratio] 12.9 % Normal 11.5 - 14.5 [facility] Comment on above: Performed By: #### R ENAL #### [facility] [address] [place] [address] Hematocrit (Bld) [Volume fraction] 48.4 % High 36.0 - 46.0 [facility] Comment on above: Performed By: #### R ENAL #### [facility] [address] [place] [address] Hemoglobin (Bld) [Mass/Vol] 17.1 g/dL High 12.0 - 16.0 [facility] Comment on above: Performed By: #### R ENAL #### [facility] [address] [place] [address] Lymphocytes (Bld) [#/Vol] 2.93 10*3/uL Normal 1.20 - 4.80 [facility] Comment on above: Performed By: #### R ENAL #### [facility] [address] [place] [address] Lymphocytes/100 WBC (Bld) 31.9 % Normal 13.0 - 44.0 [facility] Comment on above: Performed By: #### R ENAL #### [facility] [address] [place] [address] MCHC (RBC) [Mass/Vol] 35.3 g/dL Normal 32.0 - 36.0 [facility] Comment on above: Performed By: #### R ENAL #### [facility] [address] [place] [address] MCV (RBC) [Entitic vol] 85 fL Normal 80 - 100 [facility] Comment on above: Performed By: #### R ENAL #### [facility] [address] [place] [address] Monocytes (Bld) [#/Vol] 0.36 10*3/uL Normal 0.10 - 1.00 [facility] Comment on above: Performed By: #### R ENAL #### [facility] [address] [place] [address] Monocytes/100 WBC (Bld) 3.9 % Normal 2.0 - 10.0 [facility] Comment on above: Performed By: #### R ENAL #### [facility] [address] [place] [address] Neutrophils (Bld) [#/Vol] 5.54 10*3/uL Normal 1.20 - 7.70 [facility] Comment on above: Performed By: #### R ENAL #### [facility] [address] [place] [address] Neutrophils/100 WBC (Bld) 60.4 % Normal 40.0 - 80.0 [facility] Comment on above: Performed By: #### R ENAL #### [facility] [address] [place] [address] NUCLEATED RBC 0.0 /100 WBC Normal 0.0-0.0 [facility] Comment on above: Performed By: #### R ENAL #### [facility] [address] [place] [address] Platelets (Bld) [#/Vol] 365 10*3/uL Normal 150 - 450 [facility] Comment on above: Performed By: #### R ENAL #### [facility] [address] [place] [address] RBC 5.69 x10E12/L High 4.00 - 5.20 [facility] Comment on above: Performed By: #### R ENAL #### [facility] [address] [place] [address] WBC (Bld) [#/Vol] 9.2 10*3/uL Normal 4.4 - 11.3 [facility] Comment on above: Performed By: #### R ENAL #### [facility] [address] [place] [address] COMPREHENSIVE PANELon 2021 Albumin [Mass/Vol] 4.6 g/dL Normal 3.4 - 5.0 [facility] Comment on above: Performed By: #### R ENAL #### [facility] [address] [place] [address] ALP [Catalytic activity/Vol] 192 U/L High 33 - 110 [facility] Comment on above: Performed By: #### R ENAL #### [facility] [address] [place] [address] ALT [Catalytic activity/Vol] 33 U/L Normal 7 - 45 [facility] Comment on above: Result Comment: Melly ents treated with Sulfasalazine may generate falsely decreased results for ALT. Performed By: #### R ENAL #### [facility] [address] [place] [address] Anion gap [Moles/Vol] 16 mmol/L Normal 10 - 20 [facility] Comment on above: Performed By: #### R ENAL #### [facility] [address] [place] [address] AST [Catalytic activity/Vol] 51 U/L High 9 - 39 [facility] Comment on above: Performed By: #### R ENAL #### [facility] [address] [place] [address] Bilirubin [Mass/Vol] 0.5 mg/dL Normal 0.0 - 1.2 [facility] Comment on above: Performed By: #### R ENAL #### [place] [address] [place] [address] Calcium [Mass/Vol] 10.3 mg/dL Normal 8.6 - 10.6 [facility] Comment on above: Performed By: #### R ENAL #### [place] [address] [place] [address] Chloride [Moles/Vol] 101 mmol/L Normal 98 - 107 [facility] Comment on above: Performed By: #### R ENAL #### [place] [address] [place] [address] Creatinine [Mass/Vol] 0.61 mg/dL Normal 0.50 - 1.05 [facility] Comment on above: Performed By: #### R ENAL #### [facility] [address] [place] [address] eGFR FEMALE >90 Normal >90 [facility] Comment on above: Result Comment: CALC ULATIONS OF ESTIMATED GFR ARE PERFORMED USING THE 2020 CKD-EPI STUDY REFIT EQUATION WITHOUT THE RACE VARIABLE FOR THE IDMS-TRACEABLE CREATININE METHODS. https://jasn.asnjournals.org/content//ASN.8270283 988 Performed By: #### R ENAL #### [facility] [address] [place] [address] Glucose [Mass/Vol] 100 mg/dL High 74 - 99 [facility] Comment on above: Performed By: #### R ENAL #### [facility] [address] [place] [address] HCO3 (Bld) [Moles/Vol] 27 mmol/L Normal 21 - 32 [facility] Comment on above: Performed By: #### R ENAL #### [facility] [address] [place] [address] Potassium [Moles/Vol] 3.8 mmol/L Normal 3.5 - 5.3 [facility] Comment on above: Performed By: #### R ENAL #### [facility] [address] [place] [address] Protein [Mass/Vol] 8.2 g/dL Normal 6.4 - 8.2 [facility] Comment on above: Performed By: #### R ENAL #### [place] [address] [place] [address] Sodium [Moles/Vol] 140 mmol/L Normal 136 - 145 [facility] Comment on above: Performed By: #### R ENAL #### [facility] [address] [place] [address] Urea nitrogen [Mass/Vol] 5 mg/dL Low 6 - 23 [facility] Comment on above: Performed By: #### R ENAL #### [facility] [address] [place] [address] Consult - Neuro-Surgeryon Consult - Neuro-Surgery Service: [...] Updated: 07-Jun-2022 11:22 by Perez Carlisle) Normal [facility] NR CT L-SPINE WO CONTRASTon 06-07-[address] L-SPINE WO CONTRAST Patient Name: MORALES LEE STUDY: CT T-SPINE WO CONTRAST; CT L-SPINE WO CONTRAST 06/06/2022 11:03 pm INDICATION: ok, Lie Flat: Yes COMPARISON: 09/20/2021 MRI and 09/18/2021 CT ACCESSION NUMBER(S): [id number]; [id number] ORDERING CLINICIAN: CANDICE PEREZ TECHNIQUE: Axial CT [...] osseous spinal canal or neural foraminal stenosis. [id number] spinal canal and neural foraminal narrowing described [...] Electronically signed by: CELI MCNEIL, DO Normal [facility] NR CT T-SPINE WO CONTRASTon 06-07-[address] T-SPINE WO CONTRAST Patient Name: MORALES LEE STUDY: CT T-SPINE WO CONTRAST; CT L-SPINE WO CONTRAST 06/06/2022 11:03 pm INDICATION: ok, Lie Flat: Yes COMPARISON: 09/20/2021 MRI and 09/18/2021 CT ACCESSION NUMBER(S): [id number]; [id number] ORDERING CLINICIAN: CANDICE PEREZ TECHNIQUE: Axial CT [...] osseous spinal canal or neural foraminal stenosis. [id number] spinal canal and neural foraminal narrowing described [...] view. Electronically signed by: DO Andrei TOURE [facility] Provider Note - ED Care Diaz cassiegiovanni 06-07-2022 Provider Note - ED Care Transition [...] ill patient: no Electronic Signatures: Arie Buchanan ( (Resident)) (Signed 09-Jun-2022 00:04) Authored: ED Notes, Clinical Impression, Attestation, Chart Review, Scores Yony Aguirre () (Signed 21-Jun-2022 06:18) Authored: Attestation, Chart Review Co-Signer: ED Notes, Clinical Impression, Attestation, Chart Review, Scores Last Updated: 21-Jun-2022 06:18 by Yony Aguirre () [facility] Provider Note - ED v3on 10-0 [...] - M21.37 (more content not included)... Normal [facility] Triage - EDon 06-06-2022 Triage - ED [...] BMI (kg/m2): 34.793 Calculated BSA (m2) 1.94 Chris Coma Scale: Best Eye Response: (E4) spontaneous Best Motor Response: (M6) obeys commands Best Verbal Response: (V5) oriented [place] Score: 15 Mask applied: yes Patient has [...] Past Medical History Reviewedyes Electronic Signatures: Meghan Chavez) (Signed 06-Jun-2022 19:07) Entered: Risk Screens, Pain, Travel History, Chart Review, Scores, Past Medical History Authored: Quick Triage, Risk Screens, Pain, Travel History, Chart Review, Scores, Past Medical History Last Updated: 06-Jun-2022 19:07 by Meghan ChavezRN) Normal [facility] Physician Orderon 05-17-2022 Physician Order [id number]:127 Normal [facility] ED Note-Physicianon 05-11-20 ED Note-Physician [id number]#1.00CD:127 Normal [facility] Lab Reportson 05-11-2022 Lab Reports [id number]#[id number]:127 Normal [facility] RAD - CT Reporton 05-11-2022 RAD - CT Report [id number]:127 Normal [facility] CULTURE URINEon 05-10-2022 CULTURE URINE Isolate 1 [...] F Trimethoprim/Sulfamethoxazo le <=20 S F Normal [facility] Comment on above: Performed By: #### U MICRO, ERUR #### [facility] [place] [facility] [address] [place], [place] [address] Dr. Alfredo Lizama CBC AUTO DIFFon 05-07-2022 BASO # 0.1 103/ul Normal 0.0-0.1 [facility] Comment on above: Performed By: #### U MICRO, ERUR #### [facility] [place] [facility] [address] [place] [address] Dr. Alfredo Lizama Basophils/100 WBC (Bld) 0.5 % Normal 0.2-2.0 [facility] [place] [facility] Comment on above: Performed By: #### U MICRO, ERUR #### [facility] [place] [facility] [address] [place] [address] Dr. Alfredo Lizama EO # 0.4 103/ul Normal 0.0-0.7 [facility] [place] [facility] Comment on above: Performed By: #### U MICRO, ERUR #### [facility] [place] [facility] [address] [place] [address] Dr. Alfredo Lizama Eosinophils/100 WBC (Bld) 3.5 % Normal 0.9-7.0 [facility] [place] [facility] Comment on above: Performed By: #### U MICRO, ERUR #### [facility] [place] [facility] [address] [place] [address] Dr. Alfredo Lizama Erythrocyte distribution width (RBC) [Ratio] 13.2 % Normal 11.0-15.0 [facility] [place] [facility] Comment on above: Performed By: #### U MICRO, ERUR #### [facility] [place] [facility] [address] [place] [address] Dr. Alfredo Lizama Hematocrit (Bld) [Volume fraction] 44.0 % Normal 36.0-48.0 [facility] Comment on above: Performed By: #### U MICRO, ERUR #### [facility] [place] [facility] [address] [place] [address] Dr. Alfredo Lizama Hemoglobin (Bld) [Mass/Vol] 14.8 g/dL Normal 12.0-16.0 [facility] [place] [facility] Comment on above: Performed By: #### U MICRO, ERUR #### [facility] [place] [facility] [address] [place] [address] Dr. Alfredo Lizama IG # 0.03 10e3/ul Normal 0.00-0.03 [facility] [place] [facility] Comment on above: Performed By: #### U MICRO, ERUR #### [facility] [place] [facility] [address] [place] [address] Dr. Alfredo Lizama IG % 0.2 % Normal 0.0-0.5 [facility] [place] [facility] Comment on above: Performed By: #### U MICRO, ERUR #### [facility] [place] [facility] [address] [place] [address] [address] Alfredo Lizama LYMPH # 3.8 103/ul Normal 1.2-3.8 [facility] Comment on above: Performed By: #### U MICRO, ERUR #### [facility] [place] [facility] [address] [place] [address] Dr. Alfredo Lizama Lymphocytes/100 WBC (Bld) 31.3 % Normal 20.5-60.0 [facility] Comment on above: Performed By: #### U MICRO, ERUR #### [facility] [place] [facility] [address] [place] [address] Dr. Alfredo Lizama MANUAL DIFF REQ NO Normal [facility] Comment on above: Performed By: #### U MICRO, ERUR #### [facility] [place] [facility] [address] [place] [address] Dr. Alfredo Lizama MCH (RBC) [Entitic mass] 28.8 pg Normal 26.7-34.0 [facility] Comment on above: Performed By: #### U MICRO, ERUR #### [facility] [place] [facility] [address] [place] [address] Dr. Alfredo Lizama MCHC (RBC) [Mass/Vol] 33.6 g/dL Normal 29.9-35.2 [facility] Comment on above: Performed By: #### U MICRO, ERUR #### [facility] [place] [facility] [address] [place] [address] Dr. Alfredo Lizama MCV (RBC) [Entitic vol] 85.8 fL Normal 81.0-99.0 [facility] Comment on above: Performed By: #### U MICRO, ERUR #### [facility] [place] [facility] [address] [place] [address] Dr. Alfredo Lizama MONO # 0.7 103/ul Normal 0.3-0.8 [facility] [place] [facility] Comment on above: Performed By: #### U MICRO, ERUR #### [facility] [place] [facility] [address] [place] [address] Dr. Alfredo Lizama Monocytes/100 WBC (Bld) 5.8 % Normal 1.7-12.0 [facility] Comment on above: Performed By: #### U MICRO, ERUR #### [facility] [place] [facility] [address] [address] [address] Alfredo Lizama NEUT # 7.1 103/ul Critically high 1.4-6.5 [facility] Comment on above: Performed By: #### U MICRO, ERUR #### [facility] [place] [facility] [address] [place] [address] Dr. Alfredo Lizama Neutrophils/100 WBC (Bld) 58.7 % Normal 43.0-75.0 [facility] Comment on above: Performed By: #### U MICRO, ERUR #### [facility] [place] [facility] [address] [place] [address] Dr. Alfredo Lizama Platelet mean volume (Bld) [Entitic vol] 9.6 fL Normal 9.5-13.5 [facility] Comment on above: Performed By: #### U MICRO, ERUR #### [facility] [place] [facility] [address] [place] [address] Dr. Alfredo Lizama PLT 269 103/ul Normal 150-450 [facility] [place] [facility] Comment on above: Performed By: #### U MICRO, ERUR #### [facility] [place] [facility] [address] [place] [address] Dr. Alfredo Lizama RBC 5.13 106/ul Normal 4.20-5.40 [facility] Comment on above: Performed By: #### U MICRO, ERUR #### [facility] [place] [facility] [address] [place] [address] Dr. Alfredo Lizama WBC 12.2 103/ul Critically high 4.0-11.0 [facility] Comment on above: Performed By: #### U MICRO, ERUR #### [facility] [place] [facility] [address] [place] [address] ABD/PELV W CONon 05-07-20 CT ABD/PELV W CON EXAMINATION: CT ABD/ [...] 2 Bilirubin Ql (U) Negative Normal NEGATIVE [facility] Comment on above: Performed By: #### U MICRO, ERUR #### [facility] [place] [facility] [address] [address] [address] Alfredo Lizama Clarity (U) CLOUDY Abnormal CLEAR [facility] [place] [facility] Comment on above: Performed By: #### U MICRO, ERUR #### [facility] [place] [facility] [address] [address] [address] lAfredo Lizama Color (U) LT. YELLOW Normal YELLOW [facility] Comment on above: Performed By: #### U MICRO, ERUR #### [facility] [place] [facility] [address] [address] [address] Alfredo Lizama ERUAHD A micrscopic examina tion will be performed if indicated. Normal [facility] [place] [facility] Comment on above: Performed By: #### U MICRO, ERUR #### [facility] [place] [facility] [address] [place] [address] Dr. Alfredo Lizama Glucose Ql (U) Negative Normal NEGATIVE [facility] Comment on above: Performed By: #### U MICRO, ERUR #### [facility] [place] [facility] [address] [address] [address] Alfredo Lizama Hemoglobin Ql (U) LARGE Abnormal NEGATIVE [facility] Comment on above: Performed By: #### U MICRO, ERUR #### [facility] [place] [facility] [address] [address] [address] Alfredo Lizama Ketones Ql (U) Negative Normal NEGATIVE [facility] Comment on above: Performed By: #### U MICRO, ERUR #### [facility] [place] [facility] [address] [address] [address] Alfredo Lizama LEUKOCYTES MODERATE Abnormal NEGATIVE [facility] [place] [facility] Comment on above: Performed By: #### U MICRO, ERUR #### [facility] [place] [facility] [address] [address] [address] Alfredo Lizama Nitrite Ql (U) Positive Abnormal NEGATIVE [facility] Comment on above: Performed By: #### U MICRO, ERUR #### [facility] [place] [facility] [address] [address] [address] Alfredo Lizama pH (U) 8.5 [pH] Normal 5-9 [facility] [place] [facility] Comment on above: Performed By: #### U MICRO, ERUR #### [facility] [place] [facility] [address] [address] [address] Alfredo Lizama Protein (U) [Mass/Vol] 100 mg/dL Abnormal NEGATIVE/ TRACE [facility] Comment on above: Performed By: #### U MICRO, ERUR #### [facility] [place] [facility] [address] [place] [address] Dr. Alfredo Lizama SPEC GRAVITY 1.015 Normal 1.005-<=1.0 25 [facility] Comment on above: Performed By: #### U MICRO, ERUR #### [facility] [place] [facility] [address] [address] [address] Alfredo Lizama UR MICRO IND INDICATED Normal [facility] Comment on above: Performed By: #### U MICRO, ERUR #### [facility] [place] [facility] [address] [place] [address] Dr. Alfredo Lizama Urobilinogen Qn (U) 1.0 {Tesha'U}/dL Normal 0.2 - 1. 0 [facility] Comment on above: Performed By: #### U MICRO, ERUR #### [facility] [place] [facility] [address] [place] [address] Dr. Alfredo Lizama PROF CHEM 8 (BAS METB)on Anion gap [Moles/Vol] 12.0 mmol/L Normal [facility] Comment on above: Performed By: #### U MICRO, ERUR #### [facility] [place] [facility] [address] [place] [address] Dr. Alfredo Lizama Calcium [Mass/Vol] 8.6 mg/dL Normal 8.5-10.1 [facility] [place] [facility] Comment on above: Performed By: #### U MICRO, ERUR #### [facility] [place] [facility] [address] [place] [address] Dr. Alfredo Lizama Chloride [Moles/Vol] 101 mmol/L Normal 98-107 [facility] [place] [facility] Comment on above: Performed By: #### U MICRO, ERUR #### [facility] [place] [facility] [address] [place] [address] Dr. Alfredo Lizama CO2 [Moles/Vol] 28.0 mmol/L Normal 21.0-32.0 [facility] Comment on above: Performed By: #### U MICRO, ERUR #### [facility] [place] [facility] [address] [place] [address] Dr. Alfredo Lizama Creatinine [Mass/Vol] 0.77 mg/dL Normal 0.55-1.02 [facility] [place] [facility] Comment on above: Performed By: #### U MICRO, ERUR #### [facility] [place] [facility] [address] [address] [address] Alfredo Lizama EGFR-AF VINCENTIAN >60 Normal >=60 [facility] [place] [facility] Comment on above: Performed By: #### U MICRO, ERUR #### [facility] [place] [facility] [address] [place] [address] Dr. Alfredo Lizama EGFR-NON AF VINCENTIAN >60 Normal >=60 [facility] Comment on above: Performed By: #### U MICRO, ERUR #### [facility] [place] [facility] [address] [place] [address] Dr. Alfredo Lizama Glucose [Mass/Vol] 96 mg/dL Normal 74-106 [facility] [place] [facility] Comment on above: Performed By: #### U MICRO, ERUR #### [facility] [place] [facility] [address] [place] [address] Dr. Alfredo Lizama Potassium [Moles/Vol] 4.0 mmol/L Normal 3.5-5.1 [facility] [place] [facility] Comment on above: Performed By: #### U MICRO, ERUR #### [facility] [place] [facility] [address] [place] [address] Dr. Alfredo Lizama Sodium [Moles/Vol] 137 mmol/L Normal 136-145 [facility] [place] [facility] Comment on above: Performed By: #### U MICRO, ERUR #### [facility] [place] [facility] [address] [place] [address] Dr. Alfreod Lizama Urea nitrogen [Mass/Vol] 7.0 mg/dL Normal 7.0-18.0 [facility] Comment on above: Performed By: #### U MICRO, ERUR #### [facility] [place] [facility] [address] [place] [address] Dr. Alfredo Lizama Urea nitrogen/Creatinine [Mass ratio] 9.1 mg/mg Normal [facility] [place] [facility] Comment on above: Performed By: #### U MICRO, ERUR #### [facility] [place] [facility] [address] [address] [address] Alfredo Lizama URINE MICROSCOPIC ONLYon BACTERIA MODERATE Abnormal NONE SEEN [facility] [place] [facility] Comment on above: Performed By: #### U MICRO, ERUR #### [facility] [place] [facility] [address] [place] [address] Dr. Alfredo Lizama Bacteria identified Cx Nom (U) INDICATED Normal [facility] [place] [facility] Comment on above: Performed By: #### U MICRO, ERUR #### [facility] [place] [facility] [address] [place] [address] Dr. Alfredo Lizama CAST NONE SEEN Normal NONE SEEN [facility] [place] [facility] Comment on above: Performed By: #### U MICRO, ERUR #### [facility] [place] [facility] [address] [place] [address] Dr. Alfredo Lizama Crystals LM Nom (Urine sed) NONE SEEN Normal NONE SEEN [facility] [place] [facility] Comment on above: Performed By: #### U MICRO, ERUR #### [facility] [place] [facility] [address] [place] [address] Dr. Alfredo Lizama Epithelial cells LM Ql (Urine sed) FEW Abnormal NONE SEEN /RARE [facility] [place] [facility] Comment on above: Performed By: #### U MICRO, ERUR #### [facility] [place] [facility] [address] [place] [address] Dr. Alfredo Lizama MUCOUS NONE SEEN Normal NONE SEEN [facility] [place] [facility] Comment on above: Performed By: #### U MICRO, ERUR #### [facility] [place] [facility] [address] [place] [address] Dr. Alfredo Lizama RBC 2-5 Abnormal 0-2 [facility] [place] [facility] Comment on above: Performed By: #### U MICRO, ERUR #### [facility] [place] [facility] [address] [place] [address] Dr. Alfredo Lizama WBC 10-20 Abnormal NONE SEEN [facility] [place] [facility] Comment on above: Performed By: #### U MICRO, ERUR #### [facility] [place] [facility] [address] [place] [address] Dr. Alfredo Lizama Formson 04-29-2022 Forms [id number]:127 Normal [facility] ED Note-Physicianon 04-14-20 ED Note-Physician [id number]:127 Normal [facility] CULTURE URINEon 04-10-2022 CULTURE URINE Isolate 1 [...] ERUR #### [facility] [place] [facility] [address] [place] [address] Dr. Alfredo Lizama ER URINE PROFILEon 2 Bilirubin Ql (U) Negative Normal NEGATIVE [facility] Comment on above: Performed By: #### U MICRO, ERUR #### [facility] [place] [facility] [address] [address] [address] Alfredo Lizama Clarity (U) CLOUDY Abnormal CLEAR [facility] [place] [facility] Comment on above: Performed By: #### U MICRO, ERUR #### [facility] [place] [facility] [address] [address] [address] Alfredo Lizama Color (U) YELLOW Normal YELLOW [facility] [place] [facility] Comment on above: Performed By: #### U MICRO, ERUR #### [facility] [place] [facility] [address] [address] [address] Alfredo Lizama ERUAHD A micrscopic examina tion will be performed if indicated. Normal [facility] [place] [facility] Comment on above: Performed By: #### U MICRO, ERUR #### [facility] [place] [facility] [address] [place] [address] Dr. Alfredo Lizama Glucose Ql (U) Negative Normal NEGATIVE [facility] [place] [facility] Comment on above: Performed By: #### U MICRO, ERUR #### [facility] [place] [facility] [address] [address] [address] Alfredo Lizama Hemoglobin Ql (U) SMALL Abnormal NEGATIVE [facility] Comment on above: Performed By: #### U MICRO, ERUR #### [facility] [place] [facility] [address] [place] [address] Dr. Alfredo Lizama Ketones Ql (U) Negative Normal NEGATIVE [facility] Comment on above: Performed By: #### U MICRO, ERUR #### [facility] [address] [address] [address] Alfredo Lizama LEUKOCYTES LARGE Abnormal NEGATIVE [facility] Comment on above: Performed By: #### U MICRO, ERUR #### [facility] [address] [address] [address] Alfredo Lizama Nitrite Ql (U) Negative Normal NEGATIVE [facility] Comment on above: Performed By: #### U MICRO, ERUR #### [facility] [address] [place] [address] Dr. Alfredo Lizama pH (U) 7.0 [pH] Normal 5-9 [facility] Comment on above: Performed By: #### U MICRO, ERUR #### [facility] [address] [place] [address] Dr. Alfredo Lizama SPEC GRAVITY <=1.005 Abnormal 1.005-<=1.0 25 [facility] Comment on above: Performed By: #### U MICRO, ERUR #### [facility] [address] [place] [address] Dr. Alfredo Lizama UA PROTEIN Negative Normal NEGATIVE/ TRACE [facility] Comment on above: Performed By: #### U MICRO, ERUR #### [facility] [address] [place] [address] Dr. Alfredo Lizama UR MICRO IND INDICATED Normal [facility] Comment on above: Performed By: #### U MICRO, ERUR #### [facility] [address] [place] [address] Dr. Alfredo Lizama Urobilinogen Qn (U) 0.2 {Tesha'U}/dL Normal 0.2 - 1. 0 [facility] Comment on above: Performed By: #### U MICRO, ERUR #### [facility] [address] [place] [address] Dr. Alfredo Lizama URINE MICROSCOPIC ONLYon BACTERIA MODERATE Abnormal NONE SEEN [facility] Comment on above: Performed By: #### U MICRO, ERUR #### [facility] [address] [place] [address] Dr. Alfredo Lizama Bacteria identified Cx Nom (U) INDICATED Normal [facility] Comment on above: Performed By: #### U MICRO, ERUR #### [facility] [address] [place] [address] Dr. Alfredo Lizama CAST NONE SEEN Normal NONE SEEN [facility] Comment on above: Performed By: #### U MICRO, ERUR #### [facility] [address] [place] [address] Dr. Alfredo Lizama Crystals LM Nom (Urine sed) NONE SEEN Normal NONE SEEN [facility] Comment on above: Performed By: #### U MICRO, ERUR #### [facility] [address] [place] [address] Dr. Alfredo Lizama Epithelial cells LM Ql (Urine sed) FEW Abnormal NONE SEEN /RARE [facility] Comment on above: Performed By: #### U MICRO, ERUR #### [facility] [address] [address] [address] Alfredo Lizama MUCOUS NONE SEEN Normal NONE SEEN [facility] Comment on above: Performed By: #### U MICRO, ERUR #### [facility] [address] [address] [address] Alfredo Lizama RBC 5-10 Abnormal 0-2 [facility] Comment on above: Performed By: #### U MICRO, ERUR #### [facility] [address] [address] [address] Alfredo Lizama WBC (U) [#/Vol] /uL Abnormal NONE SEEN [facility] Comment on above: Performed By: #### U MICRO, ERUR #### [facility] [address] [address] [address] Alfredo Lizama ED Note-Physicianon 04-05-20 ED Note-Physician [id number]:127 Normal [facility] Formson 03-26-2022 Forms [id number]:127 Normal [facility] Basic Metabolic Panelon 11-03 Calcium [Mass/Vol] 8.9 mg/dL Normal 8.2-10.2 [facility] Comment on above: Performed By: #### C BC, CMP, PAB #### [facility] [address] [place] [address] [place] Chloride [Moles/Vol] 101 mmol/L Normal 95-114 [facility] Comment on above: Performed By: #### C BC, CMP, PAB #### [facility] [address] [place] [address] [place] CO2 [Moles/Vol] 29.0 mmol/L Normal 22.0-30.0 [facility] Comment on above: Performed By: #### C BC, CMP, PAB #### [facility] [address] Creatinine [Mass/Vol] 0.48 mg/dL Normal 0.44-1.03 [facility] Comment on above: Performed By: #### C DARIUS PATEL, PAB #### [address] Creatinine Clr Calc Pharmacy 150.29 Normal [facility] Comment on above: Result Comment: PERF ORMED BY: [place] [address] PATHOLOGIST LIVESTOCK INSPECTOR HUY COX M.D. Performed By: #### C DARIUS PATEL, PAB #### [address] Estimated GFR ( July > 60 [facility] Comment on above: Result Comment: GFR estimated reference range: According to KDOQI guidelines, <60 ml/min/1.73m2 is sufficient to diagnose a patient with chronic kidney disease. Performed By: #### C DARIUS PATEL, PAB #### [address] Estimated GFR (Non- Am > 60 Normal [facility] Comment on above: Performed By: #### C DARIUS PATEL, PAB #### [address] Glucose [Mass/Vol] 111 mg/dL High 70-100 [facility] Comment on above: Result Comment: [facility] Glucose Reference Range is dependent on time and content of last meal. Glucose of more than 200 mg/dL in a nonstressed, ambulatory subject supports the diagnosis of Diabetes Mellitus. ADA recommended reference range Performed By: #### C DARIUS PATEL, PAB #### [address] Potassium [Moles/Vol] 3.6 mmol/L Normal 3.5-5.1 [facility] Comment on above: Performed By: #### C DARIUS PATEL, PAB #### [address] Sodium [Moles/Vol] 138 mmol/L Normal 136-146 [facility] Comment on above: Performed By: #### C BC, CMP, PAB #### [facility] [address] Urea nitrogen [Mass/Vol] 10 mg/dL Normal 9- [facility] Comment on above: Performed By: #### C BC, CMP, PAB #### [facility] [address] Complete Blood Count Auto Di ffon 11-19-2021 Basophils (Bld) [#/Vol] 0.1 10*3/uL Normal 0.0-0.2 [facility] Comment on above: Result Comment: PERF ORMED BY: [place] [address] PATHOLOGIST LIVESTOCK INSPECTOR HUY COX M.D. Performed By: #### C BC, CMP, PAB #### [address] Basophils/100 WBC (Bld) 0.8 % Normal . [facility] Comment on above: Performed By: #### C BC, CMP, PAB #### [facility] [address] [place] [address] [place] Eosinophils (Bld) [#/Vol] 0.4 10*3/uL Normal 0.0-0.45 [facility] Comment on above: Performed By: #### C BC, CMP, PAB #### [place] [address] [place] Eosinophils/100 WBC (Bld) 5.8 % Normal . [facility] Comment on above: Performed By: #### C BC, CMP, PAB #### [facility] [address] Erythrocyte distribution width (RBC) [Ratio] 14.3 % Normal 11.9-15.3 [facility] Comment on above: Performed By: #### C BC, CMP, PAB #### [facility] [address] Hematocrit (Bld) [Volume fraction] 36.0 % Normal 34.0-46.4 [facility] Comment on above: Performed By: #### C BC, CMP, PAB #### [facility] [address] [place] [address] [place] Hemoglobin (Bld) [Mass/Vol] 11.9 g/dL Normal 11.8-15.4 [facility] Comment on above: Performed By: #### C BC, CMP, PAB #### [facility] [address] Lymphocytes (Bld) [#/Vol] 2.7 10*3/uL Normal 1.00-4.8 [facility] Comment on above: Performed By: #### C BC, CMP, PAB #### [facility] [address] Lymphocytes/100 WBC (Bld) 37.6 % Normal . [facility] Comment on above: Performed By: #### C BC, CMP, PAB #### [facility] [address] MCH (RBC) [Entitic mass] 28.1 pg Normal 24.7-34.3 [facility] Comment on above: Performed By: #### C BC, CMP, PAB #### [facility] [address] [place] [address] [place] MCV (RBC) [Entitic vol] 85.3 fL Normal 80-100 [facility] Comment on above: Performed By: #### C BC, CMP, PAB #### [facility] [address] Mean Corpuscular HGB Conc 32.9 g/dL Normal 32.0-35.0 [facility] Comment on above: Performed By: #### C BC, CMP, PAB #### [facility] [address] [place] [address] [place] Monocytes (Bld) [#/Vol] 0.4 10*3/uL Normal 0.0-0.8 [facility] Comment on above: Performed By: #### C BC, CMP, PAB #### [facility] [address] [place] [address] [place] Monocytes/100 WBC (Bld) 5.2 % Normal . [facility] Comment on above: Performed By: #### C BC, CMP, PAB #### [facility] [address] [place] [address] [place] Neutrophils (Bld) [#/Vol] 3.7 10*3/uL Normal 1.8-7.7 [facility] Comment on above: Performed By: #### C BC, CMP, PAB #### [facility] [address] Neutrophils/100 WBC (Bld) 50.6 % Normal . [facility] Comment on above: Performed By: #### C BC, CMP, PAB #### [facility] [address] Nucleated RBC/100 WBC (Bld) [Ratio] 0.0 % Normal 0-0.5 [facility] Comment on above: Performed By: #### C BC, CMP, PAB #### [facility] [address] Platelet mean volume (Bld) [Entitic vol] 7.6 fL Normal 6.3-10.7 [facility] Comment on above: Performed By: #### C BC, CMP, PAB #### [facility] [address] [place] [address] [place] Platelets (Bld) [#/Vol] 252 10*3/uL Normal 150-450 [facility] Comment on above: Performed By: #### C BC, CMP, PAB #### [facility] [address] [place] [address] [place] RBC (Bld) [#/Vol] 4.22 10*6/uL Normal 3.60-5.00 [facility] Comment on above: Performed By: #### C BC, CMP, PAB #### [facility] [address] [place] [address] [place] WBC (Bld) [#/Vol] 7.2 10*3/uL Normal 4.5-11.0 [facility] Comment on above: Performed By: #### C BC, CMP, PAB #### [place] [address] [place] Ammoniaon 11-11-2021 Ammonia (P) [Moles/Vol] 26 umol/L Normal 11-35 [facility] Comment on above: Result Comment: PERF ORMED BY: [place] [address] PATHOLOGIST LIVESTOCK INSPECTOR HUY COX M.D. Performed By: #### C BC, CMP, PAB #### [facility] [address] [place] [address] Hepatic Panelon 11-11-2021 Albumin [Mass/Vol] 3.0 g/dL Low 3.2-5.5 [facility] Comment on above: Performed By: #### C BC, CMP, PAB #### [address] Albumin/Globulin [Mass ratio] 1.0 {ratio} Normal [facility] Comment on above: Performed By: #### C BC, CMP, PAB #### [address] ALP [Catalytic activity/Vol] 187 U/L High 32-92 [facility] Comment on above: Result Comment: PERF ORMED BY: [place] [address] PATHOLOGIST LIVESTOCK INSPECTOR HUY COX M.D. Performed By: #### C BC, CMP, PAB #### [address] ALT [Catalytic activity/Vol] 54 U/L Normal 10-60 [facility] Comment on above: Performed By: #### C BC, CMP, PAB #### [address] AST [Catalytic activity/Vol] 39 U/L Normal 10-42 [facility] Comment on above: Performed By: #### C BC, CMP, PAB #### [address] Bilirubin [Mass/Vol] 0.3 mg/dL Normal 0.3-1.2 [facility] Comment on above: Performed By: #### C BC, CMP, PAB #### [facility] [address] Bilirubin,Indirect Not performed Normal [facility] Comment on above: Performed By: #### C BC, CMP, PAB #### [facility] [address] Bilirubin.indirect [Mass/Vol] mg/dL Normal 0.0-0.4 [facility] Comment on above: Performed By: #### C BC, CMP, PAB #### [facility] [address] [place] [address] Globulin (S) [Mass/Vol] 3.0 g/dL Normal [facility] Comment on above: Performed By: #### C BC, CMP, PAB #### [address] Protein [Mass/Vol] 6.0 g/dL Low 6.1-7.9 [facility] Comment on above: Performed By: #### C BC, CMP, PAB #### [address] Hepatitis Acute Panelon 03-0 HBsAg Screen Negative Normal Negative [facility] Comment on above: Performed By: #### C BC, CMP, PAB #### [address] Hepatitis A Antibody IgM Negative Normal Negative [facility] Comment on above: Performed By: #### C BC, CMP, PAB #### [facility] [address] [place] [address] Hepatitis B Core Antibody IgM Negative Normal Negative [facility] Comment on above: Performed By: #### C BC, CMP, PAB #### [facility] [address] [place] [address] Hepatitis C Virus Antibody 0.2 Normal 0.0-0.9 [facility] Comment on above: Performed By: #### C BC, CMP, PAB #### [facility] [address] [place] [address] Interpretation Hepatitis C Normal . [facility] Comment on above: Result Comment: Nega tive Not infected with HCV, unless recent infection is suspected or other evidence exists to indicate HCV infection. Performed at: - [facility] [address] [id number] [employer] Salesperson: Pedro Luis José PhD, Phone: [phone] PERFORMED BY: [place] [address] PATHOLOGIST LIVESTOCK INSPECTOR HUY COX M.D. Performed By: #### C BC, CMP, PAB #### [address] [place] liveron 11-11-2021 liver [facility] [place] [address] [place] [address] Ultrasound Report Signed Patient: Morales Lee MR#: [id number] : 1975 Acct:[id number] Age/Sex: 46 / F ADM Date: 10/29/21 Loc: Room: [address] [place] [address] Type: ADM IN Attending Dr: Richard Acevedo [...] Alexandru Pond M.D.11/11/2021 10:23 AM Dictation Location: [address] [address] Tech: Ermelinda Diaz Transcribed By: PWS 11/11/21 1023 Dictated By: Alexandru Pond DO 11/11/21 1018 Signed By: 11/11/21 1023 Normal [facility] Complete Blood Count Auto Di ffon 11-10-2021 Basophils (Bld) [#/Vol] 0.1 10*3/uL Normal 0.0-0.2 [facility] Comment on above: Result Comment: PERF ORMED BY: [place] [address] PATHOLOGIST LIVESTOCK INSPECTOR HUY COX M.D. Performed By: #### C BC #### [address] Basophils/100 WBC (Bld) 1.2 % Normal . [facility] Comment on above: Performed By: #### C BC #### [address] Eosinophils (Bld) [#/Vol] 0.3 10*3/uL Normal 0.0-0.45 [facility] Comment on above: Performed By: #### C BC #### [address] Eosinophils/100 WBC (Bld) 5.9 % Normal . [facility] Comment on above: Performed By: #### C BC #### [address] Erythrocyte distribution width (RBC) [Ratio] 14.2 % Normal 11.9-15.3 [facility] Comment on above: Performed By: #### C BC #### [address] Hematocrit (Bld) [Volume fraction] 37.1 % Normal 34.0-46.4 [facility] Comment on above: Performed By: #### C BC #### [address] Hemoglobin (Bld) [Mass/Vol] 12.3 g/dL Normal 11.8-15.4 [facility] Comment on above: Performed By: #### C BC #### [address] Lymphocytes (Bld) [#/Vol] 2.0 10*3/uL Normal 1.00-4.8 [facility] Comment on above: Performed By: #### C BC #### [address] Lymphocytes/100 WBC (Bld) 36.5 % Normal . [facility] Comment on above: Performed By: #### C BC #### [address] MCH (RBC) [Entitic mass] 28.6 pg Normal 24.7-34.3 [facility] Comment on above: Performed By: #### C BC #### [address] MCV (RBC) [Entitic vol] 86.5 fL Normal 80-100 [facility] Comment on above: Performed By: #### C BC #### [address] Mean Corpuscular HGB Conc 33.1 g/dL Normal 32.0-35.0 [facility] Comment on above: Performed By: #### C BC #### [address] Monocytes (Bld) [#/Vol] 0.3 10*3/uL Normal 0.0-0.8 [facility] Comment on above: Performed By: #### C BC #### [address] Monocytes/100 WBC (Bld) 5.3 % Normal . [facility] Comment on above: Performed By: #### C BC #### [place] [address] [place] Neutrophils (Bld) [#/Vol] 2.8 10*3/uL Normal 1.8-7.7 [facility] Comment on above: Performed By: #### C BC #### [place] [address] [place] Neutrophils/100 WBC (Bld) 51.1 % Normal . [facility] Comment on above: Performed By: #### C BC #### [address] Nucleated RBC/100 WBC (Bld) [Ratio] 0.1 % Normal 0-0.5 [facility] Comment on above: Performed By: #### C BC #### [address] Platelet mean volume (Bld) [Entitic vol] 7.8 fL Normal 6.3-10.7 [facility] Comment on above: Performed By: #### C BC #### [address] Platelets (Bld) [#/Vol] 214 10*3/uL Normal 150-450 [facility] Comment on above: Performed By: #### C BC #### [address] RBC (Bld) [#/Vol] 4.28 10*6/uL Normal 3.60-5.00 [facility] Comment on above: Performed By: #### C BC #### [address] WBC (Bld) [#/Vol] 5.4 10*3/uL Normal 4.5-11.0 [facility] Comment on above: Performed By: #### C BC #### [address] Comprehensive Metabolic Pane shree 11-10-2021 Albumin [Mass/Vol] 2.9 g/dL Low 3.2-5.5 [facility] Comment on above: Performed By: #### C BC, CMP, PAB #### [address] Albumin/Globulin [Mass ratio] 0.9 {ratio} Normal [facility] Comment on above: Performed By: #### C BC, CMP, PAB #### [address] ALP [Catalytic activity/Vol] 201 U/L High 32-92 [facility] Comment on above: Performed By: #### C BC, CMP, PAB #### [facility] [address] [id number] [facility] ALT [Catalytic activity/Vol] 67 U/L High 10-60 [facility] Comment on above: Performed By: #### C BC, CMP, PAB #### [facility] [address] [id number] [facility] AST [Catalytic activity/Vol] 66 U/L High 10-42 [facility] Comment on above: Performed By: #### C BC, CMP, PAB #### [facility] [address] [id number] [facility] Bilirubin [Mass/Vol] 0.4 mg/dL Normal 0.3-1.2 [facility] Comment on above: Performed By: #### C BC, CMP, PAB #### [facility] [address] Calcium [Mass/Vol] 8.7 mg/dL Normal 8.2-10.2 [facility] Comment on above: Performed By: #### C BC, CMP, PAB #### [facility] [address] [place] [address] [place] Chloride [Moles/Vol] 100 mmol/L Normal 95-114 [facility] Comment on above: Performed By: #### C BC, CMP, PAB #### [facility] [address] [place] [address] [place] CO2 [Moles/Vol] 26.4 mmol/L Normal 22.0-30.0 [facility] Comment on above: Performed By: #### C BC, CMP, PAB #### [facility] [address] [id number] [place] Creatinine [Mass/Vol] 0.50 mg/dL Normal 0.44-1.03 [facility] Comment on above: Performed By: #### C BC, CMP, PAB #### [facility] [address] [id number] [place] Creatinine Clr Calc Pharmacy 142.11 Normal [facility] Comment on above: Result Comment: PERF ORMED BY: [place] [address] PATHOLOGIST LIVESTOCK INSPECTOR HUY COX M.D. Performed By: #### C BC, CMP, PAB #### [facility] [address] Estimated GFR ( July > 60 [facility] Comment on above: Result Comment: GFR estimated reference range: According to KDOQI guidelines, <60 ml/min/1.73m2 is sufficient to diagnose a patient with chronic kidney disease. Performed By: #### C BC, CMP, PAB #### [facility] [address] Estimated GFR (Non- Am > 60 [facility] Comment on above: Performed By: #### C BC, CMP, PAB #### [address] Globulin (S) [Mass/Vol] 3.1 g/dL [facility] Comment on above: Performed By: #### C BC, CMP, PAB #### [facility] [address] Glucose [Mass/Vol] 110 mg/dL High 70-100 [facility] Comment on above: Result Comment: [facility] Glucose Reference Range is dependent on time and content of last meal. Glucose of more than 200 mg/dL in a nonstressed, ambulatory subject supports the diagnosis of Diabetes Mellitus. ADA recommended reference range Performed By: #### C BC, CMP, PAB #### [address] Potassium [Moles/Vol] 4.0 mmol/L Normal 3.5-5.1 [facility] Comment on above: Performed By: #### C BC, CMP, PAB #### [facility] [address] Protein [Mass/Vol] 6.0 g/dL Low 6.1-7.9 [facility] Comment on above: Performed By: #### C BC, CMP, PAB #### [facility] [address] [id number] [place] Sodium [Moles/Vol] 136 mmol/L Normal 136-146 [facility] Comment on above: Performed By: #### C BC, CMP, PAB #### [facility] [address] [id number] [place] Urea nitrogen [Mass/Vol] 8 mg/dL Low 9-23 [facility] Comment on above: Performed By: #### C BC, CMP, PAB #### [facility] [address] [place] [address] [place] Dipstick and Microscopicon 0 11-10-2021 Appearance (U) Turbid Critically abnormal Clear [facility] Comment on above: Order Comment: Name Collection Type:: Alvares Catheter Performed By: #### C BC, CMP, PAB #### [facility] [address] [place] [address] [place] Bacteria,Urine 3+ High None Seen [facility] Comment on above: Order Comment: Name Collection Type:: Alvares Catheter Performed By: #### C BC, CMP, PAB #### [facility] [address] [place] [address] [place] Bilirubin,Urine Negative Normal Negative [facility] Comment on above: Order Comment: Name Collection Type:: Alvares Catheter Performed By: #### C BC, CMP, PAB #### [facility] [address] [place] [id number] [place] Color (U) Yellow Normal Yellow [facility] Comment on above: Order Comment: Name Collection Type:: Alvares Catheter Performed By: #### C BC, CMP, PAB #### [facility] [address] [place] [id number] [place] Glucose Ql (U) Normal Normal Normal [facility] Comment on above: Order Comment: Name Collection Type:: Alvares Catheter Performed By: #### C BC, CMP, PAB #### [facility] [address] [place] [address] [place] Hyaline Casts,Urine None Seen Normal 0-1 [facility] Comment on above: Order Comment: Name Collection Type:: Alvares Catheter Performed By: #### C BC, CMP, PAB #### [facility] [address] [place] [address] [place] Ketones Ql (U) Negative Normal Negative [facility] Comment on above: Order Comment: Name Collection Type:: Alvares Catheter Performed By: #### C BC, CMP, PAB #### [facility] [address] Leukocyte esterase Test strip Ql (U) 3+ High Negative [facility] Comment on above: Order Comment: Name Collection Type:: Alvares Catheter Performed By: #### C BC, CMP, PAB #### [address] Nitrite,Urine Positive High Negative [facility] Comment on above: Order Comment: Name Collection Type:: Alvares Catheter Performed By: #### C BC, CMP, PAB #### [address] Occult Blood,Urine 2+ High Negative [facility] Comment on above: Order Comment: Name Collection Type:: Alvares Catheter Result Comment: PERF ORMED BY: [place] [address] PATHOLOGIST LIVESTOCK INSPECTOR HUY COX M.D. Performed By: #### C BC, CMP, PAB #### [address] Other Casts,Urine None Seen Normal None Seen [facility] Comment on above: Order Comment: Name Collection Type:: Alvares Catheter Result Comment: PERF ORMED BY: [place] [address] PATHOLOGIST LIVESTOCK INSPECTOR HUY COX M.D. Performed By: #### C BC, CMP, PAB #### [facility] [address] [place] [address] [place] pH (U) 8.5 [pH] Normal 5.0-9.0 [facility] Comment on above: Order Comment: Name Collection Type:: Alvares Catheter Performed By: #### C BC, CMP, PAB #### [facility] [address] [place] [address] [place] Protein,Urine Negative Normal Negative [facility] Comment on above: Order Comment: Name Collection Type:: Alvares Catheter Performed By: #### C BC, CMP, PAB #### [facility] [address] [place] [address] RBC,Urine 1-2 Normal 0-4 [facility] Comment on above: Order Comment: Name Collection Type:: Alvares Catheter Performed By: #### C BC, CMP, PAB #### [address] Specificy [place],Urine 1.006 Normal 1.001-1.030 [facility] Comment on above: Order Comment: Name Collection Type:: Alvares Catheter Performed By: #### C BC, CMP, PAB #### [address] Squamous Epithelial Cell,Urine 3-4 High 0-2 [facility] Comment on above: Order Comment: Name Collection Type:: Alvares Catheter Performed By: #### C BC, CMP, PAB #### [address] Triple Phosphate Crystal,Urine 2+ Normal [facility] Comment on above: Order Comment: Name Collection Type:: Alvares Catheter Performed By: #### C BC, CMP, PAB #### [address] Urobilinogen,Urine Normal Normal Normal [facility] Comment on above: Order Comment: Name Collection Type:: Alvares Catheter Performed By: #### C BC, CMP, PAB #### [facility] [address] [place] [address] [place] WBC,Urine 20-49 High 0-4 [facility] Comment on above: Order Comment: Name Collection Type:: Alvares Catheter Performed By: #### C BC, CMP, PAB #### [facility] [address] [place] [address] Urine Cultureon 11-10-2021 Bacteria identified Cx Nom (U) ORGANISM: Providencia rettgeri (O:PRORET) [place] Count >100,000 Aerobic JOSE Charge (NUC86) SUSCEPTIBILITY [...] <2 Tobramycin S <4 Trimethoprim/Sulfamethoxazo le R >38 S = SUSCEPTIBLE I = INTERMEDIATE R [...] RESISTANT TO ALL B-LACTAM DRUGS. PERFORMED BY: [place] [address] PATHOLOGIST LIVESTOCK INSPECTOR HUY COX M.D. [facility] Comment on above: Performed By: #### C BC, CMP, PAB #### [address] Basic Metabolic Panelon 03-0 Calcium [Mass/Vol] 8.7 mg/dL Normal 8.2-10.2 [facility] Comment on above: Performed By: #### B MP, CBC #### [place] [address] [place] Chloride [Moles/Vol] 102 mmol/L Normal 95-114 [facility] Comment on above: Performed By: #### B MP, CBC #### [place] [address] [place] CO2 [Moles/Vol] 25.5 mmol/L Normal 22.0-30.0 [facility] Comment on above: Performed By: #### B MP, CBC #### [address] Creatinine [Mass/Vol] 0.71 mg/dL Normal 0.44-1.03 [facility] Comment on above: Performed By: #### B MP, CBC #### [address] Creatinine Clr Calc Pharmacy 100.08 [facility] Comment on above: Result Comment: PERF ORMED BY: [place] [address] PATHOLOGIST LIVESTOCK INSPECTOR HUY COX M.D. Performed By: #### B MP, CBC #### [address] Estimated GFR ( July > 60 [facility] Comment on above: Result Comment: GFR estimated reference range: According to KDOQI guidelines, <60 ml/min/1.73m2 is sufficient to diagnose a patient with chronic kidney disease. Performed By: #### B MP, CBC #### [address] Estimated GFR (Non- Am > 60 [facility] Comment on above: Performed By: #### B MP, CBC #### [address] Glucose [Mass/Vol] 104 mg/dL High 70-100 [facility] Comment on above: Result Comment: [facility] Glucose Reference Range is dependent on time and content of last meal. Glucose of more than 200 mg/dL in a nonstressed, ambulatory subject supports the diagnosis of Diabetes Mellitus. ADA recommended reference range Performed By: #### B MP, CBC #### [address] Potassium [Moles/Vol] 4.1 mmol/L Normal 3.5-5.1 [facility] Comment on above: Performed By: #### B MP, CBC #### [address] Sodium [Moles/Vol] 137 mmol/L Normal 136-146 [facility] Comment on above: Performed By: #### B MP, CBC #### [address] Urea nitrogen [Mass/Vol] 10 mg/dL Normal 9-23 [facility] Comment on above: Performed By: #### B MP, CBC #### [address] Complete Blood Count Auto Di ffon 11-06-2021 Basophils (Bld) [#/Vol] 0.1 10*3/uL Normal 0.0-0.2 [facility] Comment on above: Result Comment: PERF ORMED BY: [place] [address] PATHOLOGIST LIVESTOCK INSPECTOR HUY COX M.D. Performed By: #### B MP, CBC #### [address] Basophils/100 WBC (Bld) 0.8 % Normal . [facility] Comment on above: Performed By: #### B MP, CBC #### [address] Eosinophils (Bld) [#/Vol] 0.4 10*3/uL Normal 0.0-0.45 [facility] Comment on above: Performed By: #### B MP, CBC #### [address] Eosinophils/100 WBC (Bld) 5.5 % Normal . [facility] Comment on above: Performed By: #### B MP, CBC #### [address] Erythrocyte distribution width (RBC) [Ratio] 14.2 % Normal 11.9-15.3 [facility] Comment on above: Performed By: #### B MP, CBC #### [address] Hematocrit (Bld) [Volume fraction] 36.0 % Normal 34.0-46.4 [facility] Comment on above: Performed By: #### B MP, CBC #### [facility] [address] Hemoglobin (Bld) [Mass/Vol] 12.0 g/dL Normal 11.8-15.4 [facility] Comment on above: Performed By: #### B MP, CBC #### [facility] [address] Lymphocytes (Bld) [#/Vol] 2.4 10*3/uL Normal 1.00-4.8 [facility] Comment on above: Performed By: #### B MP, CBC #### [address] Lymphocytes/100 WBC (Bld) 35.2 % Normal . [facility] Comment on above: Performed By: #### B MP, CBC #### [address] MCH (RBC) [Entitic mass] 28.9 pg Normal 24.7-34.3 [facility] Comment on above: Performed By: #### B MP, CBC #### [address] MCV (RBC) [Entitic vol] 86.4 fL Normal 80-100 [facility] Comment on above: Performed By: #### B MP, CBC #### [address] Mean Corpuscular HGB Conc 33.4 g/dL Normal 32.0-35.0 [facility] Comment on above: Performed By: #### B MP, CBC #### [place] [address] [place] Monocytes (Bld) [#/Vol] 0.3 10*3/uL Normal 0.0-0.8 [facility] Comment on above: Performed By: #### B MP, CBC #### [place] [address] [place] Monocytes/100 WBC (Bld) 4.8 % Normal . [facility] Comment on above: Performed By: #### B MP, CBC #### [facility] [address] [place] [address] [place] Neutrophils (Bld) [#/Vol] 3.7 10*3/uL Normal 1.8-7.7 [facility] Comment on above: Performed By: #### B MP, CBC #### [facility] [address] [place] [address] [place] Neutrophils/100 WBC (Bld) 53.7 % Normal . [facility] Comment on above: Performed By: #### B MP, CBC #### [facility] [address] [place] [address] [place] Nucleated RBC/100 WBC (Bld) [Ratio] 0.0 % Normal 0-0.5 [facility] Comment on above: Performed By: #### B MP, CBC #### [facility] [address] [place] [address] [place] Platelet mean volume (Bld) [Entitic vol] 8.2 fL Normal 6.3-10.7 [facility] Comment on above: Performed By: #### B MP, CBC #### [facility] [address] [place] [address] [place] Platelets (Bld) [#/Vol] 235 10*3/uL Normal 150-450 [facility] Comment on above: Performed By: #### B MP, CBC #### [facility] [address] [place] [address] [place] RBC (Bld) [#/Vol] 4.17 10*6/uL Normal 3.60-5.00 [facility] Comment on above: Performed By: #### B MP, CBC #### [facility] [address] [place] [address] [place] WBC (Bld) [#/Vol] 6.9 10*3/uL Normal 4.5-11.0 [facility] Comment on above: Performed By: #### B MP, CBC #### [facility] [address] [place] [address] [place] US venous duplex LE BIon US venous duplex LE BI [facility] [address] [place] [address] Ultrasound Report Signed Patient: Morales Lee MR#: [id number] : 1975 Acct:[id number] Age/Sex: 46 / F ADM Date: 10/29/21 Loc: Room: [address] [place] [address] Type: ADM IN Attending Dr: Richard Acevedo [...] Carlos Neal MD11/04/2021 11:36 AM Dictation Location: [place] [address] Tech: Natalia Rivas Transcribed By: CORTNEY 11/04/21 1136 Dictated By: Juan Carlos Neal MD 11/04/21 1135 Signed By: 11/04/21 1136 Normal [facility] Complete Blood Count Auto Di ffon 10-30-2021 Basophils (Bld) [#/Vol] 0.0 10*3/uL Normal 0.0-0.2 [facility] Comment on above: Result Comment: PERF ORMED BY: [place] [address] PATHOLOGIST LIVESTOCK INSPECTOR HUY COX M.D. Performed By: #### C DARIUS PATEL, PAB #### [address] Basophils/100 WBC (Bld) 0.6 % Normal . [facility] Comment on above: Performed By: #### C JORGE, CMP, PAB #### [facility] [address] [place] [address] [place] Eosinophils (Bld) [#/Vol] 0.4 10*3/uL Normal 0.0-0.45 [facility] Comment on above: Performed By: #### C BC, CMP, PAB #### [facility] [address] Eosinophils/100 WBC (Bld) 4.9 % Normal . [facility] Comment on above: Performed By: #### C BC, CMP, PAB #### [address] Erythrocyte distribution width (RBC) [Ratio] 14.3 % Normal 11.9-15.3 [facility] Comment on above: Performed By: #### C BC, CMP, PAB #### [address] Hematocrit (Bld) [Volume fraction] 36.1 % Normal 34.0-46.4 [facility] Comment on above: Performed By: #### C BC, CMP, PAB #### [address] Hemoglobin (Bld) [Mass/Vol] 12.1 g/dL Normal 11.8-15.4 [facility] Comment on above: Performed By: #### C BC, CMP, PAB #### [place] [address] [place] Lymphocytes (Bld) [#/Vol] 2.8 10*3/uL Normal 1.00-4.8 [facility] Comment on above: Performed By: #### C BC, CMP, PAB #### [place] [address] [place] Lymphocytes/100 WBC (Bld) 39.0 % Normal . [facility] Comment on above: Performed By: #### C BC, CMP, PAB #### [address] MCH (RBC) [Entitic mass] 28.7 pg Normal 24.7-34.3 [facility] Comment on above: Performed By: #### C BC, CMP, PAB #### [facility] [address] MCV (RBC) [Entitic vol] 85.7 fL Normal 80-100 [facility] Comment on above: Performed By: #### C BC, CMP, PAB #### [facility] [address] Mean Corpuscular HGB Conc 33.4 g/dL Normal 32.0-35.0 [facility] Comment on above: Performed By: #### C BC, CMP, PAB #### [facility] [address] Monocytes (Bld) [#/Vol] 0.4 10*3/uL Normal 0.0-0.8 [facility] Comment on above: Performed By: #### C BC, CMP, PAB #### [facility] [address] Monocytes/100 WBC (Bld) 5.2 % Normal . [facility] Comment on above: Performed By: #### C BC, CMP, PAB #### [facility] [address] [place] [address] [place] Neutrophils (Bld) [#/Vol] 3.6 10*3/uL Normal 1.8-7.7 [facility] Comment on above: Performed By: #### C BC, CMP, PAB #### [facility] [address] [place] [address] [place] Neutrophils/100 WBC (Bld) 50.3 % Normal . [facility] Comment on above: Performed By: #### C BC, CMP, PAB #### [facility] [address] [place] [address] [place] Nucleated RBC/100 WBC (Bld) [Ratio] 0.0 % Normal 0-0.5 [facility] Comment on above: Performed By: #### C BC, CMP, PAB #### [facility] [address] Platelet mean volume (Bld) [Entitic vol] 8.1 fL Normal 6.3-10.7 [facility] Comment on above: Performed By: #### C BC, CMP, PAB #### [facility] [address] Platelets (Bld) [#/Vol] 261 10*3/uL Normal 150-450 [facility] Comment on above: Performed By: #### C BC, CMP, PAB #### [address] RBC (Bld) [#/Vol] 4.22 10*6/uL Normal 3.60-5.00 [facility] Comment on above: Performed By: #### C BC, CMP, PAB #### [address] WBC (Bld) [#/Vol] 7.2 10*3/uL Normal 4.5-11.0 [facility] Comment on above: Performed By: #### C BC, CMP, PAB #### [address] Comprehensive Metabolic Pane shree 10-30-2021 Albumin [Mass/Vol] 2.8 g/dL Low 3.2-5.5 [facility] Comment on above: Performed By: #### C BC, CMP, PAB #### [address] Albumin/Globulin [Mass ratio] 1.0 {ratio} Normal [facility] Comment on above: Performed By: #### C BC, CMP, PAB #### [address] ALP [Catalytic activity/Vol] 116 U/L High 32-92 [facility] Comment on above: Performed By: #### C BC, CMP, PAB #### [address] ALT [Catalytic activity/Vol] 20 U/L Normal 10-60 [facility] Comment on above: Performed By: #### C BC, CMP, PAB #### [address] AST [Catalytic activity/Vol] 22 U/L Normal 10-42 [facility] Comment on above: Performed By: #### C BC, CMP, PAB #### [facility] [address] Bilirubin [Mass/Vol] 0.5 mg/dL Normal 0.3-1.2 [facility] Comment on above: Performed By: #### C BC, CMP, PAB #### [facility] [address] Calcium [Mass/Vol] 8.7 mg/dL Normal 8.2-10.2 [facility] Comment on above: Performed By: #### C BC, CMP, PAB #### [address] Chloride [Moles/Vol] 105 mmol/L Normal 95-114 [facility] Comment on above: Performed By: #### C BC, CMP, PAB #### [address] CO2 [Moles/Vol] 26.8 mmol/L Normal 22.0-30.0 [facility] Comment on above: Performed By: #### C BC, CMP, PAB #### [address] Creatinine [Mass/Vol] 0.51 mg/dL Normal 0.44-1.03 [facility] Comment on above: Performed By: #### C BC, CMP, PAB #### [facility] [address] [place] [address] [place] Creatinine Clr Calc Pharmacy 123.73 [facility] Comment on above: Performed By: #### C BC, CMP, PAB #### [address] Estimated GFR ( July > 60 [facility] Comment on above: Result Comment: GFR estimated reference range: According to KDOQI guidelines, <60 ml/min/1.73m2 is sufficient to diagnose a patient with chronic kidney disease. Performed By: #### C BC, CMP, PAB #### [place] [id number] [place] Estimated GFR (Non- Am > 60 Normal [facility] Comment on above: Performed By: #### C BC, CMP, PAB #### [facility] [address] Globulin (S) [Mass/Vol] 2.8 g/dL Normal [facility] Comment on above: Performed By: #### C BC, CMP, PAB #### [address] Glucose [Mass/Vol] 115 mg/dL High 70-100 [facility] Comment on above: Result Comment: [facility] Glucose Reference Range is dependent on time and content of last meal. Glucose of more than 200 mg/dL in a nonstressed, ambulatory subject supports the diagnosis of Diabetes Mellitus. ADA recommended reference range Performed By: #### C BC, CMP, PAB #### [address] Potassium [Moles/Vol] 3.7 mmol/L Normal 3.5-5.1 [facility] Comment on above: Performed By: #### C BC, CMP, PAB #### [address] Protein [Mass/Vol] 5.6 g/dL Low 6.1-7.9 [facility] Comment on above: Performed By: #### C BC, CMP, PAB #### [address] Sodium [Moles/Vol] 140 mmol/L Normal 136-146 [facility] Comment on above: Performed By: #### C BC, CMP, PAB #### [facility] [address] [place] [address] Urea nitrogen [Mass/Vol] 7 mg/dL Low 9-23 [facility] Comment on above: Performed By: #### C BC, CMP, PAB #### [place] [address] [place] Dipstick and Microscopicon 0 10-30-2021 Appearance (U) Clear Normal Clear [facility] Comment on above: Order Comment: Name Collection Type:: Voided Performed By: #### A DDONUAPLUS, CUU #### [facility] [address] [place] [address] [place] Bacteria,Urine 4+ High None Seen [facility] Comment on above: Order Comment: Name Collection Type:: Voided Performed By: #### A DDONUAPLUS, CUU #### [facility] [address] [place] [address] [place] Bilirubin,Urine Negative Normal Negative [facility] Comment on above: Order Comment: Name Collection Type:: Voided Performed By: #### A DDONUAPLUS, CUU #### [place] [address] [place] Color (U) Yellow Normal Yellow [facility] Comment on above: Order Comment: Name Collection Type:: Voided Performed By: #### A DDONUAPLUS, CUU #### [facility] [address] [place] [address] [place] Glucose Ql (U) Normal Normal Normal [facility] Comment on above: Order Comment: Name Collection Type:: Voided Performed By: #### A DDONUAPLUS, CUU #### [place] [address] [place] Hyaline Casts,Urine 0-8 Normal 0-8 [facility] Comment on above: Order Comment: Name Collection Type:: Voided Result Comment: PERF ORMED BY: [place] [address] PATHOLOGIST LIVESTOCK INSPECTOR HUY COX M.D. Performed By: #### A DDONUAPLUS, CUU #### [facility] [address] [place] [address] [place] Ketones Ql (U) Negative Normal Negative [facility] Comment on above: Order Comment: Name Collection Type:: Voided Performed By: #### A DDONUAPLUS, CUU #### [facility] [address] [place] [address] [place] Leukocyte esterase Test strip Ql (U) 3+ High Negative [facility] Comment on above: Order Comment: Name Collection Type:: Voided Performed By: #### A DDONUAPLUS, CUU #### [place] [address] [place] Nitrite,Urine Positive High Negative [facility] Comment on above: Order Comment: Name Collection Type:: Voided Performed By: #### A DDONUAPLUS, CUU #### [place] [address] [place] Occult Blood,Urine Negative Normal Negative [facility] Comment on above: Order Comment: Name Collection Type:: Voided Result Comment: PERF ORMED BY: [place] [address] PATHOLOGIST LIVESTOCK INSPECTOR HUY COX M.D. Performed By: #### A DDONUAPLUS, CUU #### [address] pH (U) 5.5 [pH] Normal 5.0-9.0 [facility] Comment on above: Order Comment: Name Collection Type:: Voided Performed By: #### A DDONUAPLUS, CUU #### [place] [address] [place] Protein,Urine Negative Normal Negative [facility] Comment on above: Order Comment: Name Collection Type:: Voided Performed By: #### A DDONUAPLUS, CUU #### [place] [address] [place] RBC LM.HPF (Urine sed) [#/Area] 0 /[HPF] Normal 0-4 [facility] Comment on above: Order Comment: Name Collection Type:: Voided Performed By: #### A DDONUAPLUS, CUU #### [place] [address] [place] Specificy [place],Urine 1.012 Normal 1.001-1.030 [facility] Comment on above: Order Comment: Name Collection Type:: Voided Performed By: #### A DDONUAPLUS, CUU #### [place] [address] [place] Squamous Epithelial Cell,Urine 0-1 Normal 0-2 [facility] Comment on above: Order Comment: Name Collection Type:: Voided Performed By: #### A DDONUAPLUS, CUU #### [facility] [address] [place] [address] Urobilinogen,Urine Normal Normal Normal [facility] Comment on above: Order Comment: Name Collection Type:: Voided Performed By: #### A DDONUAPLUS, CUU #### [address] WBC,Urine 20-49 High 0-4 [facility] Comment on above: Order Comment: Name Collection Type:: Voided Performed By: #### A DDONUAPLUS, CUU #### [address] Prealbuminon 10-30-2021 Prealbumin [Mass/Vol] 13.1 mg/dL Low 18.0-38.0 [facility] Comment on above: Result Comment: PERF ORMED BY: [place] [address] PATHOLOGIST LIVESTOCK INSPECTOR HUY COX M.D. Performed By: #### C BC, CMP, PAB #### [address] Urine Cultureon 10-30-2021 Bacteria identified Cx Nom (U) ORGANISM: Escherichia coli (O:ESCCOL) [place] Count >100,000 Aerobic JOSE Charge (NUC86) SUSCEPTIBILITY [...] <2 Tobramycin S <4 Trimethoprim/Sulfamethoxazo le S </38 S = SUSCEPTIBLE I = INTERMEDIATE R [...] RESISTANT TO ALL B-LACTAM DRUGS. PERFORMED BY: [place] [address] PATHOLOGIST LIVESTOCK INSPECTOR HUY COX M.D. Normal [facility] Comment on above: Performed By: #### A FLAVIO, RUBIU #### [address] COVID-19 FRon 10-29-2021 SARS-CoV-2 (COVID-19) RNA ADRIÁN+probe Ql (Unsp spec) Negative Normal Negative [facility] Comment on above: Order Comment: Healt hcare Worker?: N Result Comment: Testing for SARS-CoV-2 by RT-PCR This test was developed and its performance characteristics determined by [employer] and validated at the [facility]. This test has not been [...] is terminated or revoked sooner. PERFORMED BY: [address] [place] [address] PATHOLOGIST LIVESTOCK INSPECTOR HUY COX M.D. Performed By: #### C OVID 19 [facility] #### [place] [id number] [facility] Clinical Event Note-Need for Hospital Bedon 10-02-2021 [...] of the lumbar region. Provider/Team Contact Info-Pager [phone] Electronic Signatures: Sharmin Guaman (AUTOMATED MANUFACTURING INSTRUCTOR-SHELLFISH DREDGE OPERATOR) (Signed 02-Oct-2021 15:19) Authored: Clinical Event Note Last Updated: 02-Oct-2021 15:19 by Sharmin Guaman (AUTOMATED MANUFACTURING INSTRUCTOR-SHELLFISH DREDGE OPERATOR) Normal [facility] Clinical Event Note-Need for wheel Chairon 10-02-2021 [...] home, can self propel or has a managed care specialist to provide assistance. Provider/Team Contact Info-Pager [phone] Electronic Signatures: Sharmin Guaman (AUTOMATED MANUFACTURING INSTRUCTOR-SHELLFISH DREDGE OPERATOR) (Signed 02-Oct-2021 15:27) Authored: Clinical Event Note Last Updated: 02-Oct-2021 15:27 by Sharmin Guaman (AUTOMATED MANUFACTURING INSTRUCTOR-SHELLFISH DREDGE OPERATOR) Normal [facility] Daily Progress Note-Neurosur geryon 10-02-2021 Daily Progress Note-Neurosurgery Service: Neurosurgery Subjective Data: MORALES LEE is a 46 year old Female who is Hospital Day # 18 and POD #11 for posterior L4-L5 decompression;posterior L4-L5 arthrodesis. Objective Data: Objective Information: T PRBPSpO2 [id number]% Date/Time10/02 1: 1: 1: 1:281/28 1:28 Range(36.2C - 37.6C ) (76 - [...] 2021 10:00 pm000 Oct 01, 2021 2:00 [id number] The Intake and Output Totals for the [...] the note. I personally evaluated the patient [id number] Electronic Signatures: Kenneth Philippe (Resident)) (Signed 02-Oct-2021 06:52) Authored: Service, Subjective Data, Objective Data, Assessment and Plan, Note Completion Lex Frederick) (Signed 02-Oct-2021 15:16) Authored: Note Completion Co-Signer: Service, Subjective Data, Objective Data, Assessment and Plan, Note Completion Last Updated: 02-Oct-2021 15:16 by Lex Frederick) [facility] Clinical Event Note-Discharg e discussionon 10-01-2021 [...] to function in her home environment with HHC. Ultimately, patient's allowed patient to make final decision regarding discharge. Will ensure HHC orders placed and hospital bed ordered. Will discuss with discharge team organizing transportation home given patient's post op pain and duration of trip. Electronic Signatures: Ambrocio Izaguirre (AUTOMATED MANUFACTURING INSTRUCTOR-SHELLFISH DREDGE OPERATOR) (Signed 01-Oct-2021 17:11) Authored: Clinical Event Note Last Updated: 01-Oct-2021 17:11 by Ambrocio Izaguirre (AUTOMATED MANUFACTURING INSTRUCTOR-SHELLFISH DREDGE OPERATOR) [facility] Clinical Event Note-Need for hospital bedon 10-01-2021 [...] when lying flat. Electronic Signatures: Ambrocio Izaguirre (AUTOMATED MANUFACTURING INSTRUCTOR-SHELLFISH DREDGE OPERATOR) (Signed 01-Oct-2021 14:48) Authored: Clinical Event Note Last Updated: 01-Oct-2021 14:48 by Ambrocio Izaguirre (AUTOMATED MANUFACTURING INSTRUCTOR-SHELLFISH DREDGE OPERATOR) Normal [facility] Daily Progress Note-Neurosjudy leonidasgaurang 10-01-2021 Daily Progress Note-Neurosurgery Service: Neurosurgery Subjective Data: MORALES LEE is a 46 year old Female who is Hospital Day # 17 and POD #10 for posterior L4-L5 decompression;posterior L4-L5 arthrodesis. Objective Data: Objective Information: T PRBPSpO2 [id number]/7194% Date/Time10/01 0:381 0:381 0:381 0:381 0:38 Range(35.6C - 36.8C ) (64 - 96 ) (16 - 19 ) (94 - 138 )/ (59 - 83 ) (92% - 94% ) Pain reported at 09/30 9:00: 2 = Mild ---- Intake and Output ----- Mn/Dy/Year TimeIntakeOutputNet Sep 29, 2021 10:00 [id number] Sep 29, 2021 2:00 [id number] Sep 29, 2021 6:00 am000 The Intake [...] Updated: 01-Oct-2021 10:29 by Lex Frederick) Normal [facility] Daily Progress Note-Neurosurgery This report has been cancelled. [facility] Daily Progress Note-Neurosjudy stearns 09-30-2021 Daily Progress Note-Neurosurgery Service: Neurosurgery Subjective Data: MORALES LEE is a 46 year old Female who is Hospital Day # 15 and POD #8 for posterior L4-L5 decompression;posterior L4-L5 arthrodesis. Objective Data: Objective Information: T PRBPSpO2 [id number]/7393% Date/Time09/29 16: 16: 16: 16: 16:00 Range(36C - 36.7C ) (67 - 86 ) (17 - 20 ) (94 - 153 )/ (15 - 113 ) (93% - 98% ) Pain reported at 09/29 9:56: 5 = Moderate ---- Intake and Output ----- Mn/Dy/Year TimeIntakeOutputNet Sep 29, 2021 2:00 [id number] Sep 29, 2021 6:00 am000 Sep 28, 2021 10:00 [id number] The Intake and Output Totals for the [...] the note. I personally evaluated the patient [id number] Electronic Signatures: Lex Frederick) (Signed 30-Sep-2021 11:18) Authored: Note Completion Co-Signer: Service, Subjective Data, Objective Data, Assessment and Plan, Note Completion Jaya Mosquera (Resident)) (Signed 30-Sep-2021 03:18) Authored: Service, Subjective Data, Objective Data, Assessment and Plan, Note Completion Last Updated: 30-Sep-2021 11:18 by Lex Frederick) [facility] Rehab Shhe-qk-guwerxyvs - co -tx /c OT to address multidiscipon 09-30-2021 Rehab Gdsh-pk-dkvfawfea - co-tx /c OT to address multidiscip Rehab: Info: Disciplinephysical occupational therapy assist Mode of Treatmentphysical therapy; co-treatment; co-tx /c OT to address multidisciplinary functional needs and maximize pt's safety. Time IN12:15 Time OUT12:55 Total Treatment [id number] Patient in ... at end of sessionbed, 3 railings up; alarm off; not on at start of visit Communicated with ... at end of sessionbedside nurse Patient Effortgood Symptoms Noted During/After Treatmentfatigue Treatment Considerations/CommentsExte nsive discussion /c amongst OUTSIDE DELIVERER, OT, and pt regarding her current physical [...] rolling right; rolling left; scooting/bridging Roll Left [place] (Bed Mobility)moderate assist (50% patient effort); 1 person assist; nonverbal cues (demo/gesture); verbal cues Roll Right [place] (Bed Mobility)moderate assist (50% patient effort); 1 person assist; nonverbal cues (demo/gesture); verbal cues Scoot/Bridge [place] (Bed Mobility)maximum assist (25% patient effort); 2 person assist; nonverbal cues (demo/gesture); verbal cues Namigx-qu-Lld [place] (Bed Mobility)maximum assist (25% patient effort); 2 person assist; nonverbal cues (demo/gesture); verbal cues Ycz-fn-Rqsogp [place] (Bed Mobility)maximum assist (25% patient effort); 2 person assist; nonverbal cues (demo/gesture); verbal cues Assistive Device (Bed Mobility)bed rails; draw sheet Comment, Bed MobilityPt showing improvement in her ability to roll, performing 50% of AROM to achieve full rolling position. Transfer Assessment/Interventionssit to stand transfer; stand to sit transfer Comment, TransfersToday's session, OT and I utilized [place] Stand device to assist pt into full [...] Pt repositioned back to sitting EOB. Sit-Stand [place] (Transfers)dependent (less than 25% patient effort) Sit-Stand Assistive Device (Transfers)mechanical lift/aid Stand-Sit [place] (Transfers)dependent (less than 25% patient effort) Stand-Sit [...] Score8 Short Term Goals: Bed Mobility: Date Mldnhotcpab71-Ika-7602 Bed Mobility: [place] Level Goalminimum assist (75% patients effort) Bed Mobility: Physical Assist Level Goal1-person assist, verbal cues Bed Mobility: Time Frame for Goal2 wks Transfer: Established [id number]-Ary-1746 Transfer: Transfer Type Asujkmd-gb-sspvq/chair-to-b ed; ehb-ah-tokxv/mnnaw-lw-nal Transfer: [place] Level Goalmoderate assist (50% patients effort) Transfer: Physical Assist Level Goal1-person assist; verbal cues Transfer: Assistive Device Goalrolling walker Transfer: Time Frame for Goal2 wks Gait: Established [id number]-2087 Gait: [place] Level Goalmoderate assist (50% patients (more content not included)... [facility] Rehab Note-occupational medicine officer apy - co-tx with PT to maximizeon 09-30-2021 Rehab Note-occupational therapy - co-tx with PT to maximize Rehab: Info: Disciplineoccupational therapist Mode of Treatmentoccupational therapy; co-tx with PT to maximize pt's mobility and safety. Time IN12:15 Time OUT12:55 Total Treatment [id number] Patient in ... at end of sessionbed, [...] ling right; rolling left; scooting/bridging Roll Left [place] (Bed Mobility)moderate assist (50% patient effort); 1 person assist; nonverbal cues (demo/gesture); verbal cues Roll Right [place] (Bed Mobility)moderate assist (50% patient effort); 1 person assist; nonverbal cues (demo/gesture); verbal cues Scoot/Bridge [place] (Bed Mobility)maximum assist (25% patient effort); 2 [...] lower body dressing; upper body dressing; bathing [place] Level (Bathing)set up; verbal cues; moderate assist (50% patient effort); 1 person assist Comment (Bathing)anticipated due to impaired balance, strength, and pain. [place] Level (Upper Body Dressing)set up; verbal cues; moderate assist (50% patient effort) Comment (Upper Body Dressing)anticipated due to impaired balance, strength, and pain. [place] Level (Lower Body Dressing)don; socks; dependent (less than 25% patient effort) Position (Lower Body Dressing)supine [place] Level (Grooming)modified independence Comment (Grooming)Pt observed applying Orajel to gums, able to manage packaging, cap un/screwing, and application. [place] Level (Feeding)modified independence Comment (Feeding)Pt able to retrieve OJ cup from tray table at R side, bring to mouth, and drink appropriately. [place] Level (Toileting)dependent (less than 25% patient effort); [...] Score15 Short Term Goals: Bed Mobility: Date Fyhkfdbezti00-Iso-8938 Bed Mobility: [place] Level Goalcontact guard Bed Mobility: Physical Assist Level Goalset-up, verbal cues Bed Mobility: Time Frame for Goal2 wks Transfer: Established [id number]-Zyl-3888 Transfer: Transfer Type Wvukrjr-xh-smejp/chair-to-b ed; ybw-kl-kflan/eoihd-tj-dvi; toilet Transfer: [place] Level Goalminimum assist (75% patients effort) Transfer: Physical Assist Level Goalset-up; verbal cues; 1-person assist Transfer: Assistive Device GoalLRD Transfer: Time Frame for Goal2 wks Balance: Established [id number]-Ucx-4835 Balance: Goal DetailsPt will perform ADL while reaching outside MADDIE and returning self to midline >8 minutes with set-up assist, SBA, and minimal verbal cues for safety. Enrique (more content not included)... [facility] Daily Progress Note-Neurosur leonidasyon 09-29-2021 Daily Progress Note-Neurosurgery Service: Neurosurgery Subjective Data: MORALES LEE is a 46 year old Female who is Hospital Day # 14 and POD #7 for posterior L4-L5 decompression;posterior L4-L5 arthrodesis. Objective Data: Objective Information: T PRBPSpO2 [id number]/6993% Date/Time09/28 4: 8: 8: 8: 8:00 Range(36C [...] 2021 6:00 am000 Sep 27, 2021 10:00 [id number] Sep 27, 2021 2:00 [id number] The Intake and Output Totals for the last 24 hours are: IntakeOutputNet [id number] Physical Exam by System: Neurological: A&Ox3 RUE [...] the note. I personally evaluated the patient [id number] Electronic Signatures: Lex Frederick) (Signed 29-Sep-2021 09:23) Authored: Note Completion Co-Signer: Service, Subjective Data, Objective Data, Assessment and Plan, Note Completion Jaya Mosquera (Resident)) (Signed 29-Sep-2021 03:01) Authored: Service, Subjective Data, Objective Data, Assessment and Plan, Note Completion Last Updated: 29-Sep-2021 09:23 by Lex Frederick) [facility] Rehab Ksiq-ht-dlcgupdfy - co -tx /c OT to address multidiscipon 09-29-2021 Rehab Bpvu-ee-wlgdazpck - co-tx /c OT to address multidiscip Rehab: Info: Disciplinephysical occupational therapy assist Mode of Treatmentphysical therapy; co-treatment; co-tx /c OT to address multidisciplinary functional needs and maximize pt's safety. Time IN14:30 Time OUT15:40 Total Treatment [id number] Patient in ... at end of sessionbed, [...] to sit; sit to supine Roll Left [place] (Bed Mobility)maximum assist (25% patient effort); 2 person assist; verbal cues; nonverbal cues (demo/gesture) Roll Right [place] (Bed Mobility)maximum assist (25% patient effort); 2 person assist; verbal cues; nonverbal cues (demo/gesture) Scoot/Bridge [place] (Bed Mobility)maximum assist (25% patient effort); 2 person assist; nonverbal cues (demo/gesture); verbal cues Nveckn-yg-Mcm [place] (Bed Mobility)maximum assist (25% patient effort); 2 person assist; nonverbal cues (demo/gesture); verbal cues Iny-oi-Emvite [place] (Bed Mobility)verbal cues; nonverbal cues (demo/gesture); maximum [...] Pt repositioned back to sitting EOB. Sit-Stand [place] (Transfers)dependent (less than 25% patient effort) Sit-Stand Assistive Device (Transfers)mechanical lift/aid Stand-Sit [place] (Transfers)dependent (less than 25% patient effort) Stand-Sit [...] Score8 Short Term Goals: Bed Mobility: Date Wpkpaxihxkv84-Dnl-0254 Bed Mobility: [place] Level Goalminimum assist (75% patients effort) Bed Mobility: Physical Assist Level Goal1-person assist, verbal cues Bed Mobility: Time Frame for Goal2 wks Transfer: Established Ciqw09-Lio-1873 Transfer: Transfer Type Sycgkom-uo-zluwq/chair-to-b ed; wur-xf-cjads/janga-xv-plo Transfer: [place] Level Goalmoderate assist (50% patients effort) Transfer: Physical Assist Level Goal1-person assist; verbal cues Transfer: Assistive Device Goalrolling walker Transfer: Time Frame for Goal2 wks Gait: Established Wzxt77-Usy-4744 Gait: [place] Level Goalmoderate assist (50% patients effort) Gait: Physical Assist Level1-person assist; verbal cues Gait: Assistive Device Goalrolling walker Gait: Distance Goal15 feet Gait: Time Frame for Goal2 wks Balance: Established Atcp42-Bie-7911 Balance: Goal DetailsSitting EOB 20 minutes with 0-1 UE support, SBA for static sitting, CGA for dynamic. Standing 1 minute with FWW and CGA Education: Learnerpatient Topicrehab plan of care; discharge recommendations including destination and/or equipment Outcome Summary: Progress: Physical Therapyprogress towards functional goals is fair Outcome (more content not included)... [facility] Rehab Note-occupational medicine officer apy - co-tx with PT to maximizeon 09-29-2021 Rehab Note-occupational therapy - co-tx with PT to maximize Rehab: Info: Disciplineoccupational therapist Mode of Treatmentoccupational therapy; co-tx with PT to maximize pt's mobility and safety. Time IN14:30 Time OUT15:40 Total Treatment [id number] Patient in ... at end of sessionbed, [...] to sit; sit to supine Roll Left [place] (Bed Mobility)maximum assist (25% patient effort); 2 person assist; verbal cues; nonverbal cues (demo/gesture); multiple rolls to adjust harness Roll Right [place] (Bed Mobility)maximum assist (25% patient effort); 2 person assist; verbal cues; nonverbal cues (demo/gesture); multiple rolls to adjust harness Scoot/Bridge [place] (Bed Mobility)maximum assist (25% patient effort); 2 person assist; nonverbal cues (demo/gesture); verbal cues; boost HOB Ccfocy-ey-Pgx [place] (Bed Mobility)maximum assist (25% patient effort); 2 person assist; nonverbal cues (demo/gesture); verbal cues Jxm-tn-Lcufky [place] (Bed Mobility)verbal cues; nonverbal cues (demo/gesture); maximum assist (25% patient effort); 2 person assist Assistive Device (Bed Mobility)draw sheet; bed rails Transfer Assessment/Interventionssit to stand transfer; stand to sit transfer Sit-Stand [place] (Transfers)dependent (less than 25% patient effort) Sit-Stand Assistive Device (Transfers)mechanical lift/aid; Faye Plus Stand-Sit [place] (Transfers)dependent (less than 25% patient effort) Stand-Sit Assistive Device (Transfers)mechanical lift/aid; [place] Plus Safety Issues Impacting Function (Mobility)awareness of need for assistance; insight into deficits/self awareness Impairments Impacting Function (Mobility)endurance/activit y tolerance; strength; balance; coordination; postural/trunk control ADL: BADL Assessment/Interventiontoil eting; feeding; grooming; lower body dressing; upper body dressing; bathing [place] Level (Bathing)set up; verbal cues; moderate assist (50% patient effort); 1 person assist Comment (Bathing)anticipated due to impaired balance, strength, and pain. [place] Level (Upper Body Dressing)set up; verbal cues; moderate assist (50% patient effort) Comment (Upper Body Dressing)anticipated due to impaired balance, strength, and pain. [place] Level (Lower Body Dressing)don; socks; dependent (less than 25% patient effort) Position (Lower Body Dressing)supine [place] Level (Grooming)set up; contact guard Comment (Grooming)anticipated due to impaired balance, strength, and pain. [place] Level (Feeding)set up; modified independence Comment (Feeding)anticipated [place] Level (Toileting)dependent (less than 25% patient effort); purewick Impairments, BADL Safety/Performancebalance; cognition; endurance/activity tolerance; strength; trunk/postural control Cognitive Impairments, BADL Safety/Performanceawareness , need for assistance; insight into deficits/self awareness; judgment; problem solving/reasoning Motor: Sitting, Static (Balance)good balance SBA Sitting, Dynamic (Balance)fair balance CGA Dmx-gk-Ipyqb (Balance)poor balance Total A via F[place] Plus lift Standing, Static (Balance)poor balance Max A x1 - via [place] Plus Standing, Dynamic (Balance)unable to balance Balance ActivitiesPt sat EOB ~20 minutes throughout session primarily with SB (more content not included)... Normal [facility] Clinical Event Note-Medical Assessmenton 09-28-2021 Clinical Event [...] oil enema alternating with tap water enema [id number] - Bisacodyl suppository QHS Daily - Monitor [...] for wound check 10/07/21 at 10:15 am, [facility] 5th floor - F/U [...] note 45 minutes; Electronic Signatures: Concetta Shi (AUTOMATED MANUFACTURING INSTRUCTOR-SHELLFISH DREDGE OPERATOR) (Signed 28-Sep-2021 14:31) Authored: Clinical Event Note Last Updated: 28-Sep-2021 14:31 by Concetta Shi (AUTOMATED MANUFACTURING INSTRUCTOR-SHELLFISH DREDGE OPERATOR) [facility] Daily Progress Note-Gastroen terologyon 09-28-2021 Daily Progress Note-Gastroenterolog y Service: Gastroenterology Subjective Data: MORALES LEE is a 46 year old Female who is Hospital Day # 14 and POD #7 for posterior L4-L5 decompression;posterior L4-L5 arthrodesis. No events overnight. Had one bowel movement this am. Otherwise no complaints. Objective Data: Objective Information: T PRBPSpO2 [id number]/6993% Date/Time09/28 4:001 8:001 8:001 8:001 8:00 Range(36C - 36.6C ) [...] 2021 6:00 am000 Sep 27, 2021 10:00 [id number] Sep 27, 2021 2:00 [id number] The Intake and Output Totals for the last 24 hours are: IntakeOutputNet [id number] Physical Exam by System: Constitutional: Constitutional: A&Ox3, [...] recommend tr (more content not included)... [facility] Daily Progress Note-Nuha leonidasguarang 09-28-2021 Daily Progress Note-Neurosurgery Service: Neurosurgery Subjective Data: MORALES LEE is a 46 year old Female who is Hospital Day # 14 and POD #7 for posterior L4-L5 decompression;posterior L4-L5 arthrodesis. Objective Data: Objective Information: T PRBPSpO2 [id number]/4893% Date/Time09/28 4: 4: 4: 4: 4:00 Range(36C - 36.6C ) (72 - 87 ) (15 - 22 ) (92 - 153 )/ (48 - 113 ) (92% - 99% ) As of 27-Sep-2021 22:00:00, patient is on 2 L/min of oxygen via nasal cannula. Pain reported at 09/27 22:00: 0 = None ---- Intake and Output ----- Mn/Dy/Year TimeIntakeOutputNet Sep 26, 2021 10:00 [id number] Sep 26, 2021 2:00 [id number] The Intake and Output Totals for the last 24 hours are: IntakeOutputNet [id number] Physical Exam by System: Neurological: A&Ox3 RUE [...] the note. I personally evaluated the patient [id number] Electronic Signatures: Fidel Maciel (Resident)) (Signed 28-Sep-2021 05:47) Authored: Service, Subjective Data, Objective Data, Assessment and Plan, Note Completion Lex Frederick) (Signed 28-Sep-2021 07:32) Authored: Note Completion Co-Signer: Service, Subjective Data, Objective Data, Assessment and Plan, Note Completion Last Updated: 28-Sep-2021 07:32 by Lex Frederick) [facility] RENAL FUNCTION PANELon 09-28 Albumin [Mass/Vol] 3.1 g/dL Low 3.4 - 5.0 [facility] Comment on above: Performed By: #### R ENAL ####[id number] [place] [address] Anion gap [Moles/Vol] 17 mmol/L Normal 10 - 20 [facility] Comment on above: Performed By: #### R ENAL ####[id number] [place] [address] Calcium [Mass/Vol] 8.4 mg/dL Low 8.6 - 10.6 [facility] Comment on above: Performed By: #### R ENAL ####[id number] [place] [address] Chloride [Moles/Vol] 102 mmol/L Normal 98 - 107 [facility] Comment on above: Performed By: #### R ENAL ####[id number] [place] [address] Creatinine [Mass/Vol] 0.47 mg/dL Low 0.50 - 1.05 [facility] Comment on above: Performed By: #### R ENAL ####[id number] [place] [address] eGFR FEMALE >90 Normal >90 [facility] Comment on above: Result Comment: CALC ULATIONS OF ESTIMATED GFR ARE PERFORMED USING THE 2020 CKD-EPI STUDY REFIT EQUATION WITHOUT THE RACE VARIABLE FOR THE IDMS-TRACEABLE CREATININE METHODS. https://jasn.asnjournals.org/content/early//ASN.3551776 988 Performed By: #### R ENAL ####[id number] [place] [address] Glucose [Mass/Vol] 74 mg/dL Normal 74 - 99 [facility] Comment on above: Performed By: #### R ENAL ####[id number] [place] [address] HCO3 (Bld) [Moles/Vol] 27 mmol/L Normal 21 - 32 [facility] Comment on above: Performed By: #### R ENAL ####[id number] [place] [address] Phosphate [Mass/Vol] 3.4 mg/dL Normal 2.5 - 4.9 [facility] Comment on above: Result Comment: The performance characteristics of phosphorus testing in heparinized plasma have been validated by the individual laboratory site where testing is performed. Testing on heparinized plasma is not approved by the FDA; however, such approval is not necessary. Performed By: #### R ENAL ####[id number] [place] [address] Potassium [Moles/Vol] 3.7 mmol/L Normal 3.5 - 5.3 [facility] Comment on above: Performed By: #### R ENAL ####[id number] [place] [address] Sodium [Moles/Vol] 142 mmol/L Normal 136 - 145 [facility] Comment on above: Performed By: #### R ENAL ####[id number] [place] [address] Urea nitrogen [Mass/Vol] 6 mg/dL Normal 6 - 23 [facility] Comment on above: Performed By: #### R ENAL ####[id number] [place] [address] Radiologyon 09-28-2021 XR Abdomen AP Normal [facility] [facility] I Work Phone: Rehab Note-attemptedon 09-28 Rehab Note-attempted Rehab: Info: Disciplinephysical occupational therapy assist Mode of Treatmentattempted Time IN15:30 Reason Treatment Not Performedpatient/family declined treatment, not feeling well Treatment Considerations/CommentsPt declined therapy at this time 2* increased fatigue, nausea. Pt stated NO! NO! NO! upon therapists arrival, even /c increased encouragement. Will reattempt as schedule allows. Short Term Goals: Bed Mobility: Date [id number]-Zbs-7163 Bed Mobility: [place] Level Goalminimum assist (75% patients effort) Bed Mobility: Physical Assist Level Goal1-person assist, verbal cues Bed Mobility: Time Frame for Goal2 wks Transfer: Established [id number]-Gki-9325 Transfer: Transfer Type Eciowgo-ti-goxjn/chair-to-b ed; iez-it-vtjhe/srfun-dj-uee Transfer: [place] Level Goalmoderate assist (50% patients effort) Transfer: Physical Assist Level Goal1-person assist; verbal cues Transfer: Assistive Device Goalrolling walker Transfer: Time Frame for Goal2 wks Gait: Established [id number]-Kcb-6386 Gait: [place] Level Goalmoderate assist (50% patients effort) Gait: Physical Assist Level1-person assist; verbal cues Gait: Assistive Device Goalrolling walker Gait: Distance Goal15 feet Gait: Time Frame for Goal2 wks Balance: Established [id number]-Pgw-9218 Balance: Goal DetailsSitting EOB 20 minutes with 0-1 UE support, SBA for static sitting, CGA for dynamic. Standing 1 minute with FWW and CGA Electronic Signatures: Yosi Campbell (OUTSIDE DELIVERER) (Signed 28-Sep-2021 15:32) Entered: Short Term Goals, Info Authored: Info, Short Term Goals Boone Broussard (PT) (Signed 01-Oct-2021 09:01) Co-Signer: Short Term Goals, Info Last Updated: 01-Oct-2021 09:01 by Boone Broussard (PT) Normal [facility] Rehab Note-attempted Rehab: Info: Mode of Treatmentattempted [...] 28-Sep-2021 15:28 by Silvana Marshall (OT) Normal [facility] Renal Function Panelon 09-28 Albumin BCP dye [Mass/Vol] 3.1 g/dL below low threshold 3.4 - 5.0 [facility] [facility] Work Phone: Anion gap [Moles/Vol] 17 mmol/L 10 - 20 [facility] [facility] Work Phone: Calcium [Mass/Vol] 8.4 mg/dL below low threshold 8.6 - 10.6 [facility] [facility] I Work Phone: Chloride [Moles/Vol] 102 mmol/L 98 [...] lwell 6 I Work Phone: Sodium [Moles/Vol] 142 mmol/L 136 - 145 [facility]-Gas troen terology-[place] [facility] I Work Phone: Urea nitrogen [Mass/Vol] 6 mg/dL 6 - 23 [facility] [facility] I Work Phone: Renal Function Panel >90 >90 [facility] astroen terology-[place] [facility] Work Phone: Comment on above: CALCULATIONS OF IVY MATED GFR ARE PERFORMED USING THE 2020 CKD-EPI STUDY REFIT EQUATION WITHOUT THE RACE VARIABLE FOR THE IDMS-TRACEABLE CREATININE METHODS.https://jasn.asnjournals.org/content/early/ASN .0002103814 TH ABDOMEN AP VIEWon 022 TH ABDOMEN AP VIEW Patient Name: MORALES LEE STUDY: ABDOMEN AP VIEW; 09/28/2021 1:22 pm INDICATION: Abd. dist. . COMPARISON: 09/27/2021 abdominal radiograph. ACCESSION NUMBER(S): [id number] ORDERING CLINICIAN: CONCETTA SHI FINDINGS: Two AP [...] as stated. This study was interpreted at [facility], [place], [place]. Electronically signed by: TANIKA SUTTON MD [facility] Consult-Gastroenterologyon 0 09-27-2021 Consult-Gastroentero logy Service: [...] admission for post-op pain including a dilaudid OIL AND GAS RECRUITER. Has been on scheduled bowel regimen with [...] penicillin: Unknown Objective: Objective Information: T PRBPSpO2 [id number]% Date/Time09/27 4: 4: 4: 4:00 Range (76 [...] C6-7 ACDFF, (more content not included)... Normal [facility] Daily Progress Note-Neurosur geryon 09-27-2021 Daily Progress Note-Neurosurgery Service: Neurosurgery Subjective Data: MORALES LEE is a 46 year old Female who is Hospital Day # 13 and POD #6 for posterior L4-L5 decompression;posterior L4-L5 arthrodesis. Objective Data: Objective Information: T PRBPSpO2 [id number]/43374% Date/Time09/26 11:0809/27 4: 4: 4: 4:00 Range(37C [...] 2021 6:00 am000 Sep 26, 2021 10:00 [id number] Sep 26, 2021 2:00 [id number] The Intake and Output Totals for the last 24 hours are: IntakeOutputNet [id number] Physical Exam by System: Neurological: A&Ox3 RUE [...] the note. I personally evaluated the patient [id number] Electronic Signatures: Chaparro Umana (Resident)) (Signed 27-Sep-2021 06:11) Authored: Service, Subjective Data, Objective Data, Assessment and Plan, Note Completion Natalia Palacios) (Signed 08-Oct-2021 14:31) Authored: Note Completion Co-Signer: Service, Subjective Data, Objective Data, Assessment and Plan, Note Completion Last Updated: 08-Oct-2021 14:31 by Natalia Palacios) Normal [facility] MAGNESIUMon 09-27-2021 Magnesium [Mass/Vol] 1.80 mg/dL Normal 1.60 - 2.40 [facility] Comment on above: Performed By: #### C BC #### [facility] [address] [place] [address] Magnesium, Serumon 2 Magnesium [Mass/Vol] 1.80 mg/dL See Below MG-G astroen terology-Rosendo gretaell 6 [facility] Work Phone: Comment on above: Reference Range: 1.6 0 - 2.40 RENAL FUNCTION PANELon 09-27 Albumin [Mass/Vol] 3.3 g/dL Low 3.4 - 5.0 [facility] Comment on above: Performed By: #### R ENAL #### [facility] [address] [place] [address] Anion gap [Moles/Vol] 17 mmol/L Normal 10 - 20 [facility] Comment on above: Performed By: #### R ENAL #### [facility] [address] [place] [address] Calcium [Mass/Vol] 8.5 mg/dL Low 8.6 - 10.6 [facility] Comment on above: Performed By: #### R ENAL #### [facility] [address] [place] [address] Chloride [Moles/Vol] 98 mmol/L Normal 98 - 107 [facility] Comment on above: Performed By: #### R ENAL #### [facility] [address] [place] [address] Creatinine [Mass/Vol] 0.44 mg/dL Low 0.50 - 1.05 [facility] Comment on above: Performed By: #### R ENAL #### [facility] [address] [place] [address] eGFR FEMALE >90 Normal >90 [facility] Comment on above: Result Comment: CALC ULATIONS OF ESTIMATED GFR ARE PERFORMED USING THE 2020 CKD-EPI STUDY REFIT EQUATION WITHOUT THE RACE VARIABLE FOR THE IDMS-TRACEABLE CREATININE METHODS. https://jasn.asnjournals.org/content/early/ASN.6005730 988 Performed By: #### R ENAL #### [facility] [address] [place] [address] Glucose [Mass/Vol] 91 mg/dL Normal 74 - 99 [facility] Comment on above: Performed By: #### R ENAL #### [facility] [address] [place] [address] HCO3 (Bld) [Moles/Vol] 26 mmol/L Normal 21 - 32 [facility] Comment on above: Performed By: #### R ENAL #### [facility] [address] [place] [address] Phosphate [Mass/Vol] 4.0 mg/dL Normal 2.5 - 4.9 [facility] Comment on above: Result Comment: The performance characteristics of phosphorus testing in heparinized plasma have been validated by the individual laboratory site where testing is performed. Testing on heparinized plasma is not approved by the FDA; however, such approval is not necessary. Performed By: #### R ENAL #### [facility] [address] [place] [address] Potassium [Moles/Vol] 4.1 mmol/L Normal 3.5 - 5.3 [facility] Comment on above: Performed By: #### R ENAL #### [facility] [address] [place] [address] Sodium [Moles/Vol] 137 mmol/L Normal 136 - 145 [facility] Comment on above: Performed By: #### R ENAL #### [facility] [address] [place] [address] Urea nitrogen [Mass/Vol] 6 mg/dL Normal 6 - 23 [facility] Comment on above: Performed By: #### R ENAL #### [facility] [address] [place] [address] Radiologyon 01-23-2022 XR Abdomen AP Normal [facility]-Gastroen terology-Rosendo lwell [...] RACE VARIABLE FOR THE IDMS-TRACEABLE CREATININE METHODS.https://jasn.asnjournals.org/content/early//ASN .4671801036 ABDOMEN AP VIEWon 022 ABDOMEN AP VIEW Patient Name: MORALES LEE STUDY: ABDOMEN AP VIEW; 09/27/2021 2:33 am INDICATION: vomiting, constipation . COMPARISON: None. ACCESSION NUMBER(S): [id number] ORDERING CLINICIAN: FIDEL MACIEL FINDINGS: 2 AP [...] as stated. This study was interpreted at [facility], [place], [place]. Electronically signed by: DWIGHT MOY MD [facility] Daily Progress Note-Nuha stearns 09-26-2021 Daily Progress Note-Neurosurgery Service: Neurosurgery Subjective Data: MORALES LEE is a 46 year old Female who is Hospital Day # 12 and POD #5 for posterior L4-L5 decompression;posterior L4-L5 arthrodesis. Objective Data: Objective Information: T PRBPSpO2 [id number]/8299% Date/Time09/25 17: 12:001 17: 17:08 Range (68 - 98 ) (21 - 23 ) (118 - 136 )/ (69 - 82 ) (92% - 99% ) Pain reported at 09/26 3:00: sleeping ---- Intake and Output ----- Mn/Dy/Year TimeIntakeOutputNet Sep 24, 2021 10:00 [id number] Sep 24, 2021 2:00 [id number] Sep 24, 2021 6:00 [id number] The Intake and Output Totals for the last 24 hours are: IntakeOutputNet [id number] Physical Exam by System: Neurological: A&Ox3 RUE [...] the note. I personally evaluated the patient [id number] Electronic Signatures: Jaya Mosquera (Resident)) (Signed 26-Sep-2021 07:08) Authored: Service, Subjective Data, Objective Data, Assessment and Plan, Note Completion Natalia Palacios) (Signed 08-Oct-2021 14:10) Authored: Note Completion Co-Signer: Service, Subjective Data, Objective Data, Assessment and Plan, Note Completion Last Updated: 08-Oct-2021 14:10 by Natalia Palacios) Normal [facility] Clinical Event Note-POD 4 / Abdominal assessmenton [...] for wound check 10/07/21 at 10:15 am, [facility] 5th floor - F/U [...] plan of care. Electronic Signatures: Concetta Shi (AUTOMATED MANUFACTURING INSTRUCTOR-SHELLFISH DREDGE OPERATOR) (Signed 25-Sep-2021 13:30) Authored: Clinical Event Note Last Updated: 25-Sep-2021 13:30 by Concetta Shi (AUTOMATED MANUFACTURING INSTRUCTOR-SHELLFISH DREDGE OPERATOR) Normal [facility] Daily Progress Note-Nuha stearns 09-25-2021 Daily Progress Note-Neurosurgery Service: Neurosurgery Subjective Data: MORALES LEE is a 46 year old Female who is Hospital Day # 11 and POD #4 for posterior L4-L5 decompression;posterior L4-L5 arthrodesis. Objective Data: Objective Information: T PRBPSpO2 [id number]/6799% Date/Time09/24 16: 16: 16: 16:00 Range (68 - 78 ) (18 - 19 ) (102 - 117 )/ (57 - 73 ) (95% - 99% ) As of 24-Sep-2021 21:40:00, patient is on 2 L/min of oxygen via nasal cannula. Pain reported at 09/24 21:40: 8 = Severe ---- Intake and Output ----- Mn/Dy/Year TimeIntakeOutputNet Sep 23, 2021 10:00 [id number] Sep 23, 2021 6:00 [id number] The Intake and Output Totals for the last 24 hours are: [facility] [id number] Physical Exam by System: Neurological: A&Ox3 RUE [...] the note. I personally evaluated the patient [id number] Electronic Signatures: Lex Frederick) (Signed 25-Sep-2021 11:57) Authored: Note Completion Co-Signer: Service, Subjective Data, Objective Data, Assessment and Plan, Note Completion Alfredo Hendrickson (Resident)) (Signed 25-Sep-2021 05:56) Authored: Service, Subjective Data, Objective Data, Assessment and Plan, Note Completion Last Updated: 25-Sep-2021 11:57 by Lex Frederick) [facility] Rehab Boaz-ms-pavijuuql - co -tx /c OT to address multidiscipon 09-25-2021 Rehab Ygzp-tw-lapdqjkqy - co-tx /c OT to address multidiscip Rehab: Info: Disciplinephysical occupational therapy assist Mode of Treatmentphysical therapy; co-treatment; co-tx /c OT to address multidisciplinary functional needs and maximize pt's safety. Time IN15:05 Time OUT15:59 Total Treatment [id number] Patient in ... at end of sessionbed, [...] scooting/bridging; rolling right; rolling left Roll Left [place] (Bed Mobility)maximum assist (25% patient effort); 2 person assist; verbal cues; nonverbal cues (demo/gesture) Roll Right [place] (Bed Mobility)maximum assist (25% patient effort); 2 person assist; verbal cues; nonverbal cues (demo/gesture) Scoot/Bridge [place] (Bed Mobility)maximum assist (25% patient effort); 2 person assist; nonverbal cues (demo/gesture); verbal cues Zdxovt-qq-Lex [place] (Bed Mobility)maximum assist (25% patient effort); 2 person assist; verbal cues; nonverbal cues (demo/gesture) Jvr-yd-Bjtcjg [place] (Bed Mobility)maximum assist (25% patient effort); 2 [...] unable to get to full standing. Sit-Stand [place] (Transfers)maximum assist (25% patient effort); verbal cues; nonverbal cues (demo/gesture); 2-3 persona assist Sit-Stand Assistive Device (Transfers)walker, front-wheeled Stand-Sit [place] (Transfers)maximum assist (25% patient effort); nonverbal cues [...] Score8 Short Term Goals: Bed Mobility: Date [id number] Bed Mobility: [place] Level Goalminimum assist (75% patients effort) Bed Mobility: Physical Assist Level Goal1-person assist, verbal cues Bed Mobility: Time Frame for Goal2 wks Transfer: Established Transfer: Transfer Type Nlnrobk-ii-wovay/chair-to-b ed; eqh-lc-qrxgr/wzoxc-lq-yyi Transfer: [place] Level Goalmoderate assist (50% patients effort) Transfer: Physical Assist Level Goal1-person assist; verbal cues Transfer: Assistive Device Goalrolling walker Transfer: Time Frame for Goal2 wks Gait: Established [id number] Gait: [place] Level Goalmoderate assist (50% patients effort) Gait: [...] goals is gradual Electronic Signatures: Yosi Campbell (OUTSIDE DELIVERER) (Signed 25-Sep-2021 16:59) Entered: Outcome Summary, Short Term Goals, Sensory, TherEx, Outcomes Tools, Info, Mobility/Tone Authored: Short Term Goals, Outcome Summary, TherEx, Outcomes Tools, Info, Mobility/Tone, Sensory Boone Broussard (PT) (Signed 01-Oct-2021 09:01) Co-Signer: Outcome Summary, Short Term Goals, Sensory, TherEx (more content not included)... Normal [facility] Rehab Note-occupational medicine officer apy - Partial co-tx with PT to tue09-25-2021 Rehab Note-occupational therapy - Partial co-tx with PT to Rehab: Info: Disciplineoccupational therapist Mode of Treatmentoccupational therapy; Partial co-tx with PT to maximize pt's mobility and safety. Time IN15:03 Time OUT15:56 Total Treatment [id number] Patient in ... at end of sessionbed, [...] sit to supine; rolling right Roll Left [place] (Bed Mobility)Pt required assist to bend BLE at knees and to initiate turn at shoulders and hips, verbal cues for grasp on bed rail, technique, direction follow, and encouragement.; set up; verbal cues; maximum assist (25% patient effort); 2 person assist Roll Right [place] (Bed Mobility)Pt required assist to bend BLE at knees and to initiate turn at shoulders and hips, verbal cues for grasp on bed rail, technique, direction follow, and encouragement.; set up; verbal cues; maximum assist (25% patient effort); 2 person assist Scoot/Bridge [place] (Bed Mobility)boost HOB; set up; verbal cues; maximum assist (25% patient effort); 2 person assist Gcgzri-dt-Lly [place] (Bed Mobility)HOB elevated; set up; verbal cues; maximum assist (25% patient effort); 2 person assist Kpc-ek-Qijfpt [place] (Bed Mobility)HOB elevated; set up; verbal cues; maximum assist (25% patient effort); 2 person assist Assistive Device (Bed Mobility)bed rails; draw sheet Transfer Assessment/Interventionssit to stand transfer Sit-Stand [place] (Transfers)set up; verbal cues; maximum assist (25% patient effort); x 2-3 assist Safety Issues Impacting Function (Mobility)ability to follow commands; awareness of need for assistance; insight into deficits/self awareness; judgment; problem solving Impairments Impacting Function (Mobility)balance; cognition; endurance/activity tolerance; pain; strength; postural/trunk control ADL: BADL Assessment/Interventiontoil eting; feeding; grooming; lower body dressing; upper body dressing; bathing [place] Level (Bathing)set up; verbal cues; moderate assist (50% patient effort); 1 person assist Comment (Bathing)anticipated due to impaired balance, strength, and pain. [place] Level (Upper Body Dressing)set up; verbal cues; moderate assist (50% patient effort) Comment (Upper Body Dressing)anticipated due to impaired balance, strength, and pain. [place] Level (Lower Body Dressing)don; socks; dependent (less than 25% patient effort) Position (Lower Body Dressing)supine [place] Level (Grooming)set up; contact guard Comment (Grooming)anticipated due to impaired balance, strength, and pain. [place] Level (Feeding)set up; modified independence Comment (Feeding)anticipated [place] Level (Toileting)dependent (less than 25% patient effort); purewick Impairments, BADL Safety/Performancebalance; cognition; endurance/activity tolerance; strength; trunk/postural control Cognitive Impairments, BADL Safety/Performanceawareness , need for assistance; insight into deficits/self awareness; judgment; problem solving/reasoning Motor: Sitting, Static (Balance)good balance SBA Sitting, Dynamic (Balance)fair balance CGA [place]hy[place] (Balance)poor balance Max A x 2-3 - attempted Standing, Static (Balance)unable to balance Standing, Dynamic (Balance)unable to balance Balance ActivitiesPt sat EOB ~30 minutes with SBA/CGA for safety. Pt demonstrated good sitting balance and trunk control. Pt attempted STS transfers 3x with (more content not included)... Normal [facility] Daily Progress Note-Nuha stearns 09-24-2021 Daily Progress Note-Neurosurgery Service: Neurosurgery Subjective Data: MORALES LEE is a 46 year old Female who is Hospital Day # 10 and POD #3 for posterior L4-L5 decompression;posterior L4-L5 arthrodesis. Objective Data: Objective Information: T PRBPSpO2 [id number]/5499% Date/Time09/23 20:4809/23 20:4809/23 20:4809/23 20:4809/23 20:48 Range(35.5C - 36.1C ) (66 - 75 ) (16 - 19 ) (90 - 118 )/ (54 - 75 ) (98% - 99% ) As of 23-Sep-2021 22:43:00, patient is on 2 L/min of oxygen via nasal cannula. ---- Intake and Output ----- Mn/Dy/[facility] Sep 22, 2021 10:00 [id number] Sep 22, 2021 2:00 [id number] Sep 22, 2021 6:00 [id number] The Intake and Output Totals for the last 24 hours are: [facility]Out[facility] [id number] Physical Exam by System: Neurological: A&Ox3 RUE [...] the note. I personally evaluated the patient [id number] Comments/ Additional Findings Doing well. Kyphotic posture and Back Pain from instability and traumatic chance fracture significantly improved as compared to preop. She developed weakness involving ankle PF/DF following voodoo of alignment from buckling of hypertrophic ligamentum [...] for ambulation and PT for now and financial retirement plan specialist if the weakness fails to improve over [...] to the (more content not included)... Normal [facility] MAGNESIUMon 09-24-2021 Magnesium [Mass/Vol] 1.71 mg/dL Normal 1.60 - 2.40 [facility] Comment on above: Performed By: #### A FPA3 #### [facility] [address] [place] [address] Magnesium, Serumon Magnesium [Mass/Vol] 1.71 mg/dL See Below MG-G astroen terology-Rosendo moura 6 [facility] Work Phone: Comment on above: Reference Range: 1.6 0 - 2.40 RENAL FUNCTION PANELon 09-24 Albumin [Mass/Vol] 2.6 g/dL Low 3.4 - 5.0 [facility] Comment on above: Performed By: #### R ENAL ####[id number] [place] [address] Anion gap [Moles/Vol] 10 mmol/L Normal 10 - 20 [facility] Comment on above: Performed By: #### R ENAL ####[id number] [place] [address] Calcium [Mass/Vol] 7.7 mg/dL Low 8.6 - 10.6 [facility] Comment on above: Performed By: #### R ENAL ####[id number] [place] [address] Chloride [Moles/Vol] 108 mmol/L High 98 - 107 [facility] Comment on above: Performed By: #### R ENAL ####[id number] [place] [address] Creatinine [Mass/Vol] 0.39 mg/dL Low 0.50 - 1.05 [facility] Comment on above: Performed By: #### R ENAL ####[id number] [place] [address] eGFR FEMALE >90 Normal >90 [facility] Comment on above: Result Comment: CALC ULATIONS OF ESTIMATED GFR ARE PERFORMED USING THE 2020 CKD-EPI STUDY REFIT EQUATION WITHOUT THE RACE VARIABLE FOR THE IDMS-TRACEABLE CREATININE METHODS. https://jasn.asnjournals.org/content/early/ASN.9583966 988 Performed By: #### R ENAL ####[id number] [place] [address] Glucose [Mass/Vol] 92 mg/dL Normal 74 - 99 [facility] Comment on above: Performed By: #### R ENAL ####[id number] [place] [address] HCO3 (Bld) [Moles/Vol] 29 mmol/L Normal 21 - 32 [facility] Comment on above: Performed By: #### R ENAL ####[id number] [place] [address] Phosphate [Mass/Vol] 3.3 mg/dL Normal 2.5 - 4.9 [facility] Comment on above: Result Comment: The performance characteristics of phosphorus testing in heparinized plasma have been validated by the individual laboratory site where testing is performed. Testing on heparinized plasma is not approved by the FDA; however, such approval is not necessary. Performed By: #### R ENAL ####[id number] [place] [address] Potassium [Moles/Vol] 3.9 mmol/L Normal 3.5 - 5.3 [facility] Comment on above: Performed By: #### R ENAL ####[id number] [place] [address] Sodium [Moles/Vol] 143 mmol/L Normal 136 - 145 [facility] Comment on above: Performed By: #### R ENAL ####[id number] [place] [address] Urea nitrogen [Mass/Vol] 5 mg/dL Low 6 - 23 [facility] Comment on above: Performed By: #### R ENAL ####[id number] [place] [address] Rehab Note-attemptedon 09-24 Rehab Note-attempted Rehab: Info: Mode of Treatmentattempted Time IN15:00 Reason Treatment Not Performedpatient/family declined treatment; Pt declined participation in OT treatment stating she was on a very important call that she needed to take. Electronic Signatures: Silvana Marshall (OT) (Signed 24-Sep-2021 15:29) Authored: Info Last Updated: 24-Sep-2021 15:29 by Silvana Marshall (OT) Normal [facility] Rehab Note-physical therapyo n 09-24-2021 Rehab Note-physical [...] 24-Sep-2021 15:07 by Boone Broussard (PT) Normal [facility] Renal Function Panelon 09-24 Albumin BCP dye [Mass/Vol] 2.6 g/dL below low threshold 3.4 - 5.0 MG-Gastroen terology-Rosendo lwell 6 I Work Phone: Anion gap [Moles/Vol] 10 mmol/L 10 - 20 [facility]-Gastroen terology-Rosendo lwell 6 I Work Phone: Calcium [Mass/Vol] 7.7 mg/dL below [...] Phone: Renal Function Panel >90 >90 MG-G tiffany carcamo-Rosendo moura 6 [facility] Work Phone: Comment on above: CALCULATIONS OF IVY MATED GFR ARE PERFORMED USING THE 2020 CKD-EPI STUDY REFIT EQUATION WITHOUT THE RACE VARIABLE FOR THE IDMS-TRACEABLE CREATININE METHODS.https://jasn.asnjournals.org/content//ASN .4308464122 CBCon 09-23-2021 Erythrocyte distribution width (RBC) [Ratio] 13.1 % Normal 11.5 - 14.5 [facility] Comment on above: Performed By: #### C BC ####[id number] [place] [address] Hematocrit (Bld) [Volume fraction] 30.5 % Low 36.0 - 46.0 [facility] Comment on above: Performed By: #### C BC ####[id number] [place] [address] Hemoglobin (Bld) [Mass/Vol] 9.9 g/dL Low 12.0 - 16.0 [facility] Comment on above: Performed By: #### C BC ####[id number] [place] [address] MCHC (RBC) [Mass/Vol] 32.5 g/dL Normal 32.0 - 36.0 [facility] Comment on above: Performed By: #### C BC ####[id number] [place] [address] MCV (RBC) [Entitic vol] 92 fL Normal 80 - 100 [facility] Comment on above: Performed By: #### C BC ####[id number] [place] [address] NUCLEATED RBC 0.0 /100 WBC Normal 0.0-0.0 [facility] Comment on above: Performed By: #### C BC ####[id number] [place] [address] Platelets (Bld) [#/Vol] 244 10*3/uL Normal 150 - 450 [facility] Comment on above: Performed By: #### C BC ####[id number] [place] [address] RBC 3.33 x10E12/L Low 4.00 - 5.20 [facility] Comment on above: Performed By: #### C BC ####[id number] [place] [address] WBC (Bld) [#/Vol] 8.6 10*3/uL Normal 4.4 - 11.3 [facility] Comment on above: Performed By: #### C BC ####[id number] [place] [address] CBC AND DIFFERENTIALon 09-23 % AUTOMATED IMMATURE GRAN 0.4 % Normal 0.0 - 0.9 [facility] Comment on above: Result Comment: Jaleesa ture Granulocyte Count (IG) includes promyelocytes, myelocytes and metamyelocytes but does not include bands. Percent differential counts (%) should be interpreted in the context of the absolute cell counts (cells/L). Performed By: #### C BC #### [facility] [address] [place] [address] Basophils (Bld) [#/Vol] 0.03 10*3/uL Normal 0.00 - 0.10 [facility] Comment on above: Performed By: #### C BC #### [facility] [address] [place] [address] Basophils/100 WBC (Bld) 0.4 % Normal 0.0 - 2.0 [facility] Comment on above: Performed By: #### C BC #### [facility] [address] [place] [address] Eosinophils (Bld) [#/Vol] 0.27 10*3/uL Normal 0.00 - 0.70 [facility] Comment on above: Performed By: #### C BC #### [facility] [address] [place] [address] Eosinophils/100 WBC (Bld) 3.6 % Normal 0.0 - 6.0 [facility] Comment on above: Performed By: #### C BC #### [facility] [address] [place] [address] Erythrocyte distribution width (RBC) [Ratio] 13.2 % Normal 11.5 - 14.5 [facility] Comment on above: Performed By: #### C BC #### [facility] [address] [place] [address] Hematocrit (Bld) [Volume fraction] 30.9 % Low 36.0 - 46.0 [facility] Comment on above: Performed By: #### C BC #### [facility] [address] [place] [address] Hemoglobin (Bld) [Mass/Vol] 10.4 g/dL Low 12.0 - 16.0 [facility] Comment on above: Performed By: #### C BC #### [facility] [address] [place] [address] Lymphocytes (Bld) [#/Vol] 2.41 10*3/uL Normal 1.20 - 4.80 [facility] Comment on above: Performed By: #### C BC #### [facility] [address] [place] [address] Lymphocytes/100 WBC (Bld) 31.9 % Normal 13.0 - 44.0 [facility] Comment on above: Performed By: #### C BC #### [facility] [address] [place] [address] MCHC (RBC) [Mass/Vol] 33.7 g/dL Normal 32.0 - 36.0 [facility] Comment on above: Performed By: #### C BC #### [facility] [address] [place] [address] MCV (RBC) [Entitic vol] 91 fL Normal 80 - 100 [facility] Comment on above: Performed By: #### C BC #### [facility] [address] [place] [address] Monocytes (Bld) [#/Vol] 0.49 10*3/uL Normal 0.10 - 1.00 [facility] Comment on above: Performed By: #### C BC #### [facility] [address] [place] [address] Monocytes/100 WBC (Bld) 6.5 % Normal 2.0 - 10.0 [facility] Comment on above: Performed By: #### C BC #### [facility] [address] [place] [address] Neutrophils (Bld) [#/Vol] 4.32 10*3/uL Normal 1.20 - 7.70 [facility] Comment on above: Performed By: #### C BC #### [facility] [address] [place] [address] Neutrophils/100 WBC (Bld) 57.2 % Normal 40.0 - 80.0 [facility] Comment on above: Performed By: #### C BC #### [facility] [address] [place] [address] NUCLEATED RBC 0.0 /100 WBC Normal 0.0-0.0 [facility] Comment on above: Performed By: #### C BC #### [facility] [address] [place] [address] Platelets (Bld) [#/Vol] 228 10*3/uL Normal 150 - 450 [facility] Comment on above: Performed By: #### C BC #### [facility] [address] [place] [address] RBC 3.39 x10E12/L Low 4.00 - 5.20 [facility] Comment on above: Performed By: #### C BC #### [facility] [address] [place] [address] WBC (Bld) [#/Vol] 7.6 10*3/uL Normal 4.4 - 11.3 [facility] Comment on above: Performed By: #### C BC #### [facility] [address] [place] [address] Complete Blood Count + Diffe vidya 09-23-2021 Basophils/100 WBC (Bld) 0.4 % 0.0 - 2.0 [facility] I Work Phone: Erythrocyte distribution width (RBC) [Ratio] 13.2 % See Below [facility] 6 I [...] 10*3/uL 4.4 - 11.3 [facility] 6 [facility] Work Phone: Complete Blood Count + Differential 0.03 {x10E9/L} See Below [facility] gretaell 6 [facility] Work Phone: Comment on above: Reference Range: 0.0 0 - 0.10 Complete Blood Count + Differential 0.27 {x10E9/L} See Below [facility] ell 6 [facility] Work Phone: Comment on above: Reference Range: 0.0 0 - 0.70 Complete Blood Count + Differential 0.49 {x10E9/L} See Below [facility]ology-[facility] 6 [facility] Work Phone: Comment on above: Reference Range: 0.1 0 - 1.00 Complete Blood Count + Differential 2.41 {x10E9/L} See Below [facility] 6 [facility] Work Phone: Comment on above: Reference Range: 1.2 0 - 4.80 Complete Blood Count + Differential 4.32 {x10E9/L} See Below [facility] ell 6 [facility] Work Phone: Comment on above: Reference Range: 1.2 0 - 7.70 Complete Blood Count + Differential 3.6 % 0.0 - 6.0 [facility] 6 [facility] Work Phone: Complete Blood Count + Differential 0.4 % 0.0 - 0.9 [facility] 6 [facility] Work Phone: Comment on above: Immature Granulocyte [...] 10*3/uL 4.4 - 11.3 [facility] tro[facility] ell 6 I Work Phone: MAGNESIUMon 09-23-2021 Magnesium [Mass/Vol] 1.68 mg/dL Normal 1.60 - 2.40 [facility] Comment on above: Performed By: #### C #### [facility] [address] [place] [address] Magnesium, Serumon Magnesium [Mass/Vol] 1.68 mg/dL See Below [facility]G astroen terology-[facility] 6 [facility] Work Phone: Comment on above: Reference Range: 1.6 0 - 2.40 No Panel Informationon 09-23 0.0 {/100_WBC} 0.0-0.0 [facility]astroe n [facility] 6 [facility] Work Phone: Order Reconciliationon 09-23 Order Reconciliation Page 1 Discharge Reconciliation Document Reconciliation Type: Discharge requested on behalf of Ambrocio Izaguirre (Advanced Practice Nurse) done by Ambrocio Izaguirre ([facility]) Discharge - Partial Reconciliation: 23-Sep-2021 13:21 by: Ambrocio Izaguirre ([facility]) Discharge - Partial Reconciliation: 24-Sep-2021 10:12 by: Ambrocio Izaguirre ([facility]) Discharge - Partial Reconciliation: 30-Sep-2021 14:12 by: Concetta Shi ([facility]) Discharge - Partial Reconciliation: 30-Sep-2021 14:14 by: Concetta Shi ([facility]) Discharge - Reconciliation: 30-Sep-2021 14:24 by: Concetta Shi ([facility]) Discharge - Reset to Incomplete: 02-Oct-2021 15:36 by: Ambrocio Izaguirre ([facility]) Discharge - Reconciliation: 02-Oct-2021 15:40 by: Ambrocio Izaguirre ([facility]) Discharge - Reset to Incomplete: 02-Oct-2021 15:57 by: Ambrocio Izaguirre ([facility]) Discharge - Reconciliation: 02-Oct-2021 15:58 by: Ambrocio Izaguirre ([facility]) Home Medications EnteredHOME MEDICATIONS AT DISCHARGE DateReconciliation [...] not required (more content not included)... Normal [facility] PATH REVIEW-IMMUNOHEMATOLOGY on 09-23-2021 PATH REV-IMMUNOHEMOTOL LTEA Normal [facility] Comment on above: Result Comment: By h [...] PATIENT. Performed By: #### A FPA3 #### [facility] [address] [place] [address] RENAL FUNCTION PANELon 09-23 Albumin [Mass/Vol] 2.7 g/dL Low 3.4 - 5.0 [facility] Comment on above: Performed By: #### V FPA3 #### [facility] [address] [place] [address] Anion gap [Moles/Vol] 10 mmol/L Normal 10 - 20 [facility] Comment on above: Performed By: #### V FPA3 #### [facility] [address] [place] [address] Calcium [Mass/Vol] 7.9 mg/dL Low 8.6 - 10.6 [facility] Comment on above: Performed By: #### V FPA3 #### [facility] [address] [place] [address] Chloride [Moles/Vol] 108 mmol/L High 98 - 107 [facility] Comment on above: Performed By: #### V FPA3 #### [facility] [address] [place] [address] Creatinine [Mass/Vol] 0.39 mg/dL Low 0.50 - 1.05 [facility] Comment on above: Performed By: #### V FPA3 #### [facility] [address] [place] [address] eGFR FEMALE >90 Normal >90 [facility] Comment on above: Result Comment: CALC ULATIONS OF ESTIMATED GFR ARE PERFORMED USING THE 2020 CKD-EPI STUDY REFIT EQUATION WITHOUT THE RACE VARIABLE FOR THE IDMS-TRACEABLE CREATININE METHODS. https://jasn.asnjournals.org/content/early//ASN.3569409 988 Performed By: #### V FPA3 #### [facility] [address] [place] [address] Glucose [Mass/Vol] 87 mg/dL Normal 74 - 99 [facility] Comment on above: Performed By: #### V FPA3 #### [place] [address] [place] [address] HCO3 (Bld) [Moles/Vol] 29 mmol/L Normal 21 - 32 [facility] Comment on above: Performed By: #### V FPA3 #### [facility] [address] [place] [address] Phosphate [Mass/Vol] 2.7 mg/dL Normal 2.5 - 4.9 [facility] Comment on above: Result Comment: The performance characteristics of phosphorus testing in heparinized plasma have been validated by the individual laboratory site where testing is performed. Testing on heparinized plasma is not approved by the FDA; however, such approval is not necessary. Performed By: #### V FPA3 #### [facility] [address] [place] [address] Potassium [Moles/Vol] 3.6 mmol/L Normal 3.5 - 5.3 [facility] Comment on above: Performed By: #### V FPA3 #### [facility] [address] [place] [address] Sodium [Moles/Vol] 143 mmol/L Normal 136 - 145 [facility] Comment on above: Performed By: #### V FPA3 #### [facility] [address] [place] [address] Urea nitrogen [Mass/Vol] 9 mg/dL Normal 6 - 23 [facility] Comment on above: Performed By: #### V FPA3 #### [facility] [address] [place] [address] Rehab Note-individual therap yon 09-23-2021 Rehab Note-individual therapy Rehab: Info: Disciplinephysical therapist Mode of Treatmentphysical therapy; individual therapy Time IN14:50 Time OUT15:29 Total Treatment [id number] Patient in ... at end of sessionbed, [...] sit to supine; rolling right Roll Left [place] (Bed Mobility)verbal cues; maximum assist (25% patient effort); 1 person assist Roll Right [place] (Bed Mobility)maximum assist (25% patient effort); verbal cues; 1 person assist Scoot/Bridge [place] (Bed Mobility)verbal cues; maximum assist (25% patient effort); 2 person assist; boost HOB Iimmbw-lg-Txy [place] (Bed Mobility)verbal cues; maximum assist (25% patient effort); 1 person assist Sel-ys-Psjasb [place] (Bed Mobility)set up; verbal cues; maximum assist (25% patient effort); 1 person assist Assistive Device (Bed Mobility)bed rails; draw sheet Transfer Assessment/Interventionssit to stand transfer; stand to sit transfer Sit-Stand [place] (Transfers)2 person assist; moderate assist (50% patient effort) Sit-Stand Assistive Device (Transfers)B arm-in-arm assist Stand-Sit [place] (Transfers)2 person assist; moderate assist (50% patient [...] 23-Sep-2021 15:50 by Boone Broussard (PT) Normal [facility] Renal Function Panelon 09-23 Albumin BCP dye [...] RACE VARIABLE FOR THE IDMS-TRACEABLE CREATININE METHODS.https://jasn.asnjournals.org/content/early/ASN .5070869318 ANTIBODY IDENT.on 09-22-2021 ANTIBODY IDENT. Anti-E Normal [facility] Comment on above: Performed By: #### V FPA3 #### [facility] [address] [place] [address] CBCon 09-22-2021 Erythrocyte distribution width (RBC) [Ratio] 13.2 % Normal 11.5 - 14.5 [facility] Comment on above: Performed By: #### V FPA3 #### [facility] [address] [place] [address] Hematocrit (Bld) [Volume fraction] 30.6 % Low 36.0 - 46.0 [facility] Comment on above: Performed By: #### V FPA3 #### [facility] [address] [place] [address] Hemoglobin (Bld) [Mass/Vol] 10.2 g/dL Low 12.0 - 16.0 [facility] Comment on above: Performed By: #### V FPA3 #### [facility] [address] [place] [address] MCHC (RBC) [Mass/Vol] 33.3 g/dL Normal 32.0 - 36.0 [facility] Comment on above: Performed By: #### V FPA3 #### [facility] [address] [place] [address] MCV (RBC) [Entitic vol] 91 fL Normal 80 - 100 [facility] Comment on above: Performed By: #### V FPA3 #### [facility] [address] [place] [address] NUCLEATED RBC 0.0 /100 WBC Normal 0.0-0.0 [facility] Comment on above: Performed By: #### V FPA3 #### [facility] [address] [place] [address] Platelets (Bld) [#/Vol] 215 10*3/uL Normal 150 - 450 [facility] Comment on above: Performed By: #### V FPA3 #### [facility] [address] [place] [address] RBC 3.37 x10E12/L Low 4.00 - 5.20 [facility] Comment on above: Performed By: #### V FPA3 #### [facility] [address] [place] [address] WBC (Bld) [#/Vol] 9.6 10*3/uL Normal 4.4 - 11.3 [facility] Comment on above: Performed By: #### V FPA3 #### [facility] [address] [place] [address] CBC AND DIFFERENTIALon 09-22 % AUTOMATED IMMATURE GRAN 0.4 % Normal 0.0 - 0.9 [facility] Comment on above: Result Comment: Jaleesa ture Granulocyte Count (IG) includes promyelocytes, myelocytes and metamyelocytes but does not include bands. Percent differential counts (%) should be interpreted in the context of the absolute cell counts (cells/L). Performed By: #### C BCDF ####[id number] [place] [address] Basophils (Bld) [#/Vol] 0.02 10*3/uL Normal 0.00 - 0.10 [facility] Comment on above: Performed By: #### C BCDF ####[id number] [place] [address] Basophils/100 WBC (Bld) 0.2 % Normal 0.0 - 2.0 [facility] Comment on above: Performed By: #### C BCDF ####[id number] [place] [address] Eosinophils (Bld) [#/Vol] 0.04 10*3/uL Normal 0.00 - 0.70 [facility] Comment on above: Performed By: #### C BCDF ####[id number] [place] [address] Eosinophils/100 WBC (Bld) 0.4 % Normal 0.0 - 6.0 [facility] Comment on above: Performed By: #### C BCDF ####[id number] [place] [address] Erythrocyte distribution width (RBC) [Ratio] 13.2 % Normal 11.5 - 14.5 [facility] Comment on above: Performed By: #### C BCDF ####[id number] [place] [address] Hematocrit (Bld) [Volume fraction] 30.6 % Low 36.0 - 46.0 [facility] Comment on above: Performed By: #### C BCDF ####[id number] [place] [address] Hemoglobin (Bld) [Mass/Vol] 10.3 g/dL Low 12.0 - 16.0 [facility] Comment on above: Performed By: #### C BCDF ####[id number] [place] [address] Lymphocytes (Bld) [#/Vol] 2.19 10*3/uL Normal 1.20 - 4.80 [facility] Comment on above: Performed By: #### C BCDF ####[id number] [place] [address] Lymphocytes/100 WBC (Bld) 19.9 % Normal 13.0 - 44.0 [facility] Comment on above: Performed By: #### C BCDF ####[id number] [place] [address] MCHC (RBC) [Mass/Vol] 33.7 g/dL Normal 32.0 - 36.0 [facility] Comment on above: Performed By: #### C BCDF ####[id number] [place] [address] MCV (RBC) [Entitic vol] 90 fL Normal 80 - 100 [facility] Comment on above: Performed By: #### C BCDF ####[id number] [place] [address] Monocytes (Bld) [#/Vol] 0.71 10*3/uL Normal 0.10 - 1.00 [facility] Comment on above: Performed By: #### C BCDF ####[id number] [place] [address] Monocytes/100 WBC (Bld) 6.5 % Normal 2.0 - 10.0 [facility] Comment on above: Performed By: #### C BCDF ####[id number] [place] [address] Neutrophils (Bld) [#/Vol] 7.98 10*3/uL High 1.20 - 7.70 [facility] Comment on above: Performed By: #### C BCDF ####[id number] [place] [address] Neutrophils/100 WBC (Bld) 72.6 % Normal 40.0 - 80.0 [facility] Comment on above: Performed By: #### C BCDF ####[id number] [place] [address] NUCLEATED RBC 0.0 /100 WBC Normal 0.0-0.0 [facility] Comment on above: Performed By: #### C BCDF ####[id number] [place] [address] Platelets (Bld) [#/Vol] 242 10*3/uL Normal 150 - 450 [facility] Comment on above: Performed By: #### C BCDF ####[id number] [place] [address] RBC 3.39 x10E12/L Low 4.00 - 5.20 [facility] Comment on above: Performed By: #### C BCDF ####[id number] [place] [address] WBC (Bld) [#/Vol] 11.0 10*3/uL Normal 4.4 - 11.3 [facility] Comment on above: Performed By: #### C BCDF ####[id number] [place] [address] Complete Blood Count + Diffe rentialon 09-22-2021 Basophils/100 WBC (Bld) 0.2 % 0.0 [...] 6 I Work Phone: Neutrophils/100 WBC (Bld) 72.6 % See Below [facility] I Work Phone: Comment on above: Reference Range: 40. 0 - 80.0 Platelets (Bld) [#/Vol] 242 10*3/uL 150 - 450 [facility] 6 I Work Phone: RBC (Bld) [#/Vol] 3.39 {x10E12/L} below low threshold See Below [facility] 6 I Work Phone: Comment on above: Reference Range: 4.0 0 - 5.20 WBC (Bld) [#/Vol] 11.0 10*3/uL 4.4 - 11.3 [facility] stroen [facility] 6 I Work Phone: Complete [...] 0.0 {/100_WBC} 0.0-0.0 [facility] 6 [facility] Work Phone: Complete Blood Count + Differential 0.02 {x10E9/L} See Below [facility] 6 [facility] Work Phone: Comment on above: Reference Range: 0.0 0 - 0.10 Complete Blood Count + Differential 0.04 {x10E9/L} See Below [facility] 6 [facility] Work Phone: Comment on above: Reference Range: 0.0 0 - 0.70 Complete Blood Count + Differential 0.71 {x10E9/L} See Below [facility] 6 [...] Cx Nom (U) [facility] Work Phone: Daily Progress Note - Psychi atryon 09-22-2021 Daily Progress Note - Psychiatry Subjective Data: MORALES LEE is a 46 year old Female who is Hospital Day # 8. Pt seen lying in bed this morning, with at bedside. She is currently on OIL AND GAS RECRUITER for pain, and reports being tired this [...] this time. Objective: Objective Information: T PRBPSpO2 [id number]/5792% Date/Time09/22 0:001/18 8: 8:001 8:001/18 8:00 Range(36.3C - 36.8C ) (63 [...] Fair. Medications: Continuous Medications ----- 1. HYDROmorphone OIL AND GAS RECRUITER 25 mg/ NaCL 0.9% 50 mL: 2.6 mg/hr IV OIL AND GAS RECRUITER 2. Sodium Chloride 0.9% Infusion: 1000 mL [...] from Suboxone (more content not included)... Normal [facility] Daily Progress Note-Nuha stearns 09-22-2021 Daily Progress Note-Neurosurgery Service: Neurosurgery Subjective Data: MORALES LEE is a 46 year old Female who is Hospital Day # 8 and POD #1 for posterior L4-L5 decompression;posterior L4-L5 arthrodesis. Objective Data: Objective Information: T PRBPSpO2 [id number]/5895% Date/Time09/22 0:001 0:001/18 0:001/18 0:001/18 0:00 Range(36.2C - 36.8C ) (82 - 109 ) (12 - 20 ) (85 - 132 )/ (49 - 89 ) (94% - 100% ) As of 21-Sep-2021 17:00:00, patient is on 4 L/min of oxygen via nasal cannula. Pain reported at 09/21 16:33: 5 = Moderate ---- Intake and Output ----- Mn/Dy/Year TimeIntakeOutputNet Sep 20, 2021 10:00 [id number] Sep 20, 2021 6:00 [id number] The Intake and Output Totals for the last 24 hours are: IntakeOutputNet [id number] Physical Exam by System: Neurological: A&Ox3 RUE [...] Chronic pain recs- intra-op ketamine, meloxicam post-op, OIL AND GAS RECRUITER until good PT eval, Suboxone as OP COWS psych recs alvares for retention SCD's, SQH Attestation: Note Completion: I am a: Resident/Fellow Attending AttestationI saw and evaluated the patient. I personally obtained the schofield and critical portions of the history and physical exam or was physically present for cshofield and critical portions performed by the resident/fellow. I reviewed the resident/fellows documentation and discussed the patient with the resident/fellow. I agree with the resident/fellows medical decision making as documented in the note. I personally evaluated the patient [id number] Electronic Signatures: Fidel Maciel (Resident)) (Signed 22-Sep-2021 00:35) Authored: Service, Subjective Data, Objective Data, Assessment and Plan, Note Completion Lex Frederick) (Signed 22-Sep-2021 10:31) Authored: Note Completion Co-Signer: Service, Subjective Data, Objective Data, Assessment and Plan, Note Completion Last Updated: 22-Sep-2021 10:31 by Lex Frederick) Normal [facility] Discharge [id number] -18-2 022 Discharge Profile2 Discharge Orders: Anticipated Discharge Date: Anticipated Discharge [id number] Problem List: Additional Dx: Spinal stenosis of [...] Please call your Neurosurgeon's office (Dr. Frederick [phone]) if you have any questions. -If you [...] or twist. Instead, bend at knees to cloth picker objects. Wound Care: Inspect your incision [...] taking Acetamin (more content not included)... Normal [facility] LACTATEon 09-22-2021 Lactate [Moles/Vol] 0.8 mmol/L Normal 0.4 - 2.0 [facility] Comment on above: Result Comment: Trina puncture immediately after or during the administration of Metamizole may lead to falsely low results. Testing should be performed immediately prior to Metamizole dosing. Performed By: #### C BC #### [facility] [address] [place] [address] Laboratory - Hematology and Cell countson 09-22-2021 Erythrocyte distribution width (RBC) [Ratio] 13.2 % See Below [facility] [employer] Work Phone: Comment on above: Reference Range: 11. 5 - 14.5 Hematocrit (Bld) [Volume fraction] 30.6 % below low threshold See Below [facility] Work Phone: Comment on above: Reference Range: [...] 09-22 0.0 {/100_WBC} 0.0-0.0 [facility]roe n [facility]-[place] 6 I Work Phone: OT Evaluation v2-occupationa l therapy - co-eval with PT to mon 09-22-2021 OT Evaluation v2-occupational therapy - co-eval with PT to Rehab: Info: Mode of Treatmentoccupational therapy; co-eval with PT to maximize pt's mobility and safety. Time IN10:50 Time OUT11:40 Total Treatment [id number] Patient in ... at end of sessionbed, 3 railings up; alarm on Communicated with ... at end of sessionbedside nurse Patient Effortgood Symptoms Noted During/After Treatmentfatigue; increased pain Patient Profile Reviewedyes Onset of Illness/Injury or Date of [id number] Reason for Referral-09/18/21: s/p exploration of spinal [...] EOB sitting. Pertinent History of Current Functional Plskjww22 y/o with hx of HTN, C6-7 ACDF, [...] TubesIV; triple lumen; telemetry; urethral catheter indwelling; OIL AND GAS RECRUITER pump, DAVOL drain, wound vac O2 Deliverynasal cannula; 4L Pre Treatment Patient Positionsupine Pre Treatment Blood Pressure Lxtmamae52 mmHg Pre Treatment Diastolic (mm Hg)46 mmHg Pre Treatment Heart Rate (beats/min)67 Pre Treatment Respiratory Rate (breaths/min)19 Pre Treatment SpO2 (%)96 % Pre Treatment Oxygen Deliverysupplemental O2 Pre Treatment CommentsMAP 56 During Treatment Patient Positionsitting During Treatment Blood Pressure Udbzrjiy82 mmHg During Treatment Diastolic (mm Hg)77 mmHg [...] to sit; sit to supine Roll Left [place] (Bed Mobility)set up; verbal cues; 2 person assist; Pt required assist to bend BLE at (more content not included)... Normal [facility] PATH REVIEW-IMMUNOHEMATOLOGY on 09-22-2021 PATH REV-IMMUNOHEMOTOL ZURDO Normal [facility] Comment on above: Result Comment: By h [...] THIS PATIENT. Performed By: #### C #### [facility] [address] [place] [address] PT Evaluation f9-vs-prbnurvu t - co-treatment with OT to maxion 09-22-2021 PT Evaluation [id number] - co-treatment with OT to maxi Rehab: Info: Mode of Treatmentphysical therapy; co-treatment; co-treatment with OT to maximize safety, mobility and ADL participation Time IN10:50 Time OUT11:40 Total Treatment [id number] Patient in ... at end of sessionbed, 3 railings up; alarm on Communicated with ... at end of sessionbedside nurse Patient Effortgood Symptoms Noted During/After Treatmentfatigue; increased pain Patient Profile Reviewedyes Onset of Illness/Injury or Date of [id number] Reason for Referral-09/18/21: s/p exploration of spinal [...] TubesIV; triple lumen; telemetry; urethral catheter indwelling; OIL AND GAS RECRUITER pump, DAVOL drain, wound vac O2 Deliverynasal cannula; 4L Pre Treatment Patient Positionsupine Pre Treatment Blood Pressure Nfjzwsbq97 mmHg Pre Treatment Diastolic (mm Hg)46 mmHg Pre Treatment Heart Rate (beats/min)67 Pre Treatment SpO2 (%)96 % Pre Treatment Oxygen Deliverysupplemental O2 During Treatment Patient Positionsitting During Treatment Blood Pressure Snaphlpr58 mmHg During Treatment Diastolic (mm Hg)77 mmHg [...] sit to supine; rolling right Roll Left [place] (Bed Mobility)verbal cues; 2 person assist; Pt required assist to bend BLE at knees and to initiate turn at shoulders and hips, verbal cues for grasp on bed rail, technique, direction follow, and encouragement.; maximum assist (25% patient effort) Roll Right [place] (Bed Mobility)2 person assist; maximum assist (25% patient effort); verbal cues Scoot/Bridge [place] (Bed Mobility)verbal cues; maximum assist (25% patient effort); 2 person assist; boost HOB Mqhahg-pa-Ddm [place] (Bed Mobility)verbal cues; maximum assist (25% patient effort); 1 person assist Bnq-hl-Jnujby [place] (Bed Mobility)set up; verbal cues; maximum assist (25% patient effort); 1 person assist Assistive Device (Bed Mobility)bed rails; draw sheet Impairments Impacting Function (Mobility)balance; cognition; endurance/activity tolerance; pain; strength; postural/trunk control; motor control Motor: Sitting, Static (Balance)SBA Sitting, Dynamic (Balance)CGA Nla-hi-Uxuak (Balance)MADELIN this visit. Pt hypotensive Sensory: Pre-Treatment Pain Rating7/10 Post-Treatment Pain Rating7/10 Comment, Pre/Post Treatment PainPt reported pain throughout buttocks and back, utilized OIL AND GAS RECRUITER pump as needed. Pain LimitationFunctional mobility limited due pain; ADLs/IADLs limited due to pain; Participation limited by pain; RN or team was notified of limitations due to p (more content not included)... Normal [facility] RENAL FUNCTION PANELon 09-22 Albumin [Mass/Vol] 2.7 g/dL Low 3.4 - 5.0 [facility] Comment on above: Performed By: #### C BC #### [facility] [address] [place] [address] Anion gap [Moles/Vol] 10 mmol/L Normal 10 - 20 [facility] Comment on above: Performed By: #### C BC #### [facility] [address] [place] [address] Calcium [Mass/Vol] 7.8 mg/dL Low 8.6 - 10.6 [facility] Comment on above: Performed By: #### C BC #### [facility] [address] [place] [address] Chloride [Moles/Vol] 105 mmol/L Normal 98 - 107 [facility] Comment on above: Performed By: #### C BC #### [facility] [address] [place] [address] Creatinine [Mass/Vol] 0.49 mg/dL Low 0.50 - 1.05 [facility] Comment on above: Performed By: #### C BC #### [facility] [address] [place] [address] eGFR FEMALE >90 Normal >90 [facility] Comment on above: Result Comment: CALC ULATIONS OF ESTIMATED GFR ARE PERFORMED USING THE 2020 CKD-EPI STUDY REFIT EQUATION WITHOUT THE RACE VARIABLE FOR THE IDMS-TRACEABLE CREATININE METHODS. https://jasn.asnjournals.org/content/early//ASN.8466316 988 Performed By: #### C BC #### [facility] [address] [place] [address] Glucose [Mass/Vol] 93 mg/dL Normal 74 - 99 [facility] Comment on above: Performed By: #### C BC #### [facility] [address] [place] [address] HCO3 (Bld) [Moles/Vol] 29 mmol/L Normal 21 - 32 [facility] Comment on above: Performed By: #### C BC #### [facility] [address] [place] [address] Phosphate [Mass/Vol] 2.4 mg/dL Low 2.5 - 4.9 [facility] Comment on above: Result Comment: The performance characteristics of phosphorus testing in heparinized plasma have been validated by the individual laboratory site where testing is performed. Testing on heparinized plasma is not approved by the FDA; however, such approval is not necessary. Performed By: #### C BC #### [facility] [address] [place] [address] Potassium [Moles/Vol] 4.3 mmol/L Normal 3.5 - 5.3 [facility] Comment on above: Performed By: #### C BC #### [facility] [address] [place] [address] Sodium [Moles/Vol] 140 mmol/L Normal 136 - 145 [facility] Comment on above: Performed By: #### C BC #### [facility] [address] [place] [address] Urea nitrogen [Mass/Vol] 9 mg/dL Normal 6 - 23 [facility] Comment on above: Performed By: #### C BC #### [facility] [address] [place] [address] Renal Function Panelon 09-22 Albumin BCP dye [...] >90 >90 [facility]-G astroen terology-[place] 6 [facility] Work Phone: Comment on above: CALCULATIONS OF IVY MATED GFR ARE PERFORMED USING THE 2020 CKD-EPI STUDY REFIT EQUATION WITHOUT THE RACE VARIABLE FOR THE IDMS-TRACEABLE CREATININE METHODS.https://jasn.asnjournals.org/content/early/ASN .0375460167 UA MICROSCOPICon 09-22-2021 RBC 6 /HPF Abnormal 0-5 [facility] Comment on above: Performed By: #### C BC #### [facility] [address] [place] [address] SQUAMOUS EPITH. CELLS 1 /HPF Normal [facility] Comment on above: Performed By: #### C BC #### [facility] [address] [place] [address] WBC 8 /HPF Abnormal 0-5 [facility] Comment on above: Performed By: #### C BC #### [facility] [address] [place] [address] URINALYSIS WITH CULTURE IF I NDICATEDon 01-18-2022 Appearance (U) CLEAR Normal CLEAR [facility] Comment on above: Performed By: #### U ARFX ####[id number] [place] [address] Bilirubin Ql (U) Negative Normal NEGATIVE [facility] Comment on above: Performed By: #### U ARFX ####[id number] [place] [address] Color (U) SANDRA Normal STRAW,YELLO W [facility] Comment on above: Performed By: #### U ARFX ####[id number] [place] [address] Glucose Ql (U) Negative Normal NEGATIVE [facility] Comment on above: Performed By: #### U ARFX ####[id number] [place] [address] Hemoglobin Ql (U) Negative Normal NEGATIVE [facility] Comment on above: Performed By: #### U ARFX ####[id number] [place] [address] Ketones Ql (U) 20 (1+) Abnormal NEGATIVE [facility] Comment on above: Performed By: #### U ARFX ####[id number] [place] [address] Leukocyte esterase Test strip Ql (U) Negative Normal NEGATIVE [facility] Comment on above: Performed By: #### U ARFX ####[id number] [place] [address] Nitrite Ql (U) Negative Normal NEGATIVE [facility] Comment on above: Performed By: #### U ARFX ####[id number] [place] [address] pH (U) 5.0 [pH] Normal 5.0 - 8.0 [facility] Comment on above: Performed By: #### U ARFX ####[id number] [place] [address] Protein Ql (U) 30 (1+) Abnormal NEGATIVE [facility] Comment on above: Performed By: #### U ARFX ####[id number] [place] [address] Specific gravity (U) [Rel density] 1.040 High 1.005 - 1.035 [facility] Comment on above: Performed By: #### U ARFX ####[id number] [id number] Urobilinogen (U) [Mass/Vol] 2.0 mg/dL High 0.0 - 1.9 [facility] Comment on above: Result Comment: Due to [...] positive urobilinogen. Performed By: #### U ARFX ####[id number] [place] [address] Lab Specimen Source Normal [facility] Comment on above: Performed By: #### U ARFX ####[id number] [place] [address] Performed By: #### C BC #### [facility] [address] [place] [address] Color (U) SANDRA See Below MG-Gastroen terology-Rosendo [...] 6 I Work Phone: Protein (U) [Mass/Vol] 30 (1+) Abnormal NEGATIVE [facility] 6 I Work Phone: RBC (U) [#/Vol] Negative NEGATIVE MG-Gastro en terology-[place] 6 [facility] Work Phone: Specific gravity (U) [Rel density] 1.040 1 above high threshold See Below [facility]-Gastroen terology-[place] 6 [facility] Work Phone: Comment on above: Reference Range: 1.0 05 - 1.035 URINALYSIS WITH CULTURE IF INDICATED 2.0 mg/dL above high threshold 0.0 - 1.9 [facility]ology[facility] [facility] [facility] Work Phone: Comment on above: Due to [...] CULTURE,BACTERIALon URINE CULTURE,BACTERIAL PATIENT: MORALES LEE LOCATION: [place] [address] BILL#: [id number] : 71 AGE: SEX: F ORDERED BY: AMBROCIO IZAGUIRRE SOURCE: URINE COLLECTED: 09/22/21 12:59 ANTIBIOTICS AT [facility].: RECEIVED : 09/22/21 14:59 SITE: R E S U L T S URINE CULTURE,BACTERIAL FINAL 09/23/21 09:04 NO SIGNIFICANT GROWTH. Normal [facility] Comment on above: Performed By: #### C BC #### [facility] [address] [place] [address] Urinalysis, Microscopicon Urinalysis, Microscopic 1 {/HPF} [facility]-Gastroen terology-[place] 6 [facility] Work Phone: Urinalysis, Microscopic 6 {/HPF} Abnormal 0-5 [facility]astroen [facility]ology-[place] [facility] 6 [facility] Work Phone: Urinalysis, Microscopic 8 {/HPF} Abnormal 0-5 [facility]astroen [facility]ology-[place] [facility] 6 I Work Phone: Comment on above: SOURCE: CBCon 09-21-2021 Erythrocyte distribution width (RBC) [Ratio] 13.1 % Normal 11.5 - 14.5 [facility] Comment on above: Performed By: #### R ENAL #### [facility] [address] [place] [address] Hematocrit (Bld) [Volume fraction] 34.5 % Low 36.0 - 46.0 [facility] Comment on above: Performed By: #### R ENAL #### [facility] [address] [place] [address] Hemoglobin (Bld) [Mass/Vol] 11.4 g/dL Low 12.0 - 16.0 [facility] Comment on above: Performed By: #### R ENAL #### [facility] [address] [place] [address] MCHC (RBC) [Mass/Vol] 33.0 g/dL Normal 32.0 - 36.0 [facility] Comment on above: Performed By: #### R ENAL #### [facility] [address] [place] [address] MCV (RBC) [Entitic vol] 91 fL Normal 80 - 100 [facility] Comment on above: Performed By: #### R ENAL #### [facility] [address] [place] [address] NUCLEATED RBC 0.0 /100 WBC Normal 0.0-0.0 [facility] Comment on above: Performed By: #### R ENAL #### [facility] [address] [place] [address] Platelets (Bld) [#/Vol] 269 10*3/uL Normal 150 - 450 [facility] Comment on above: Performed By: #### R ENAL #### [facility] [address] [place] [address] RBC 3.81 x10E12/L Low 4.00 - 5.20 [facility] Comment on above: Performed By: #### R ENAL #### [facility] [address] [place] [address] WBC (Bld) [#/Vol] 14.6 10*3/uL High 4.4 - 11.3 [facility] Comment on above: Performed By: #### R ENAL #### [facility] [address] [place] [address] Erythrocyte distribution width (RBC) [Ratio] 13.2 % Normal 11.5 - 14.5 [facility] Comment on above: Performed By: #### R ENAL #### [facility] [address] [place] [address] Hematocrit (Bld) [Volume fraction] 35.8 % Low 36.0 - 46.0 [facility] Comment on above: Performed By: #### R ENAL #### [facility] [address] [place] [address] Hemoglobin (Bld) [Mass/Vol] 11.9 g/dL Low 12.0 - 16.0 [facility] Comment on above: Performed By: #### R ENAL #### [facility] [address] [place] [address] MCHC (RBC) [Mass/Vol] 33.2 g/dL Normal 32.0 - 36.0 [facility] Comment on above: Performed By: #### R ENAL #### [facility] [address] [place] [address] MCV (RBC) [Entitic vol] 91 fL Normal 80 - 100 [facility] Comment on above: Performed By: #### R ENAL #### [facility] [address] [place] [address] NUCLEATED RBC 0.0 /100 WBC Normal 0.0-0.0 [facility] Comment on above: Performed By: #### R ENAL #### [facility] [address] [place] [address] Platelets (Bld) [#/Vol] 215 10*3/uL Normal 150 - 450 [facility] Comment on above: Performed By: #### R ENAL #### [facility] [address] [place] [address] RBC 3.93 x10E12/L Low 4.00 - 5.20 [facility] Comment on above: Performed By: #### R ENAL #### [facility] [address] [place] [address] WBC (Bld) [#/Vol] 14.8 10*3/uL High 4.4 - 11.3 [facility] Comment on above: Performed By: #### R ENAL #### [facility] [address] [place] [address] Daily Progress Note-Nuha stearns 09-21-2021 Daily Progress Note-Neurosurgery Service: Neurosurgery Subjective Data: MORALES LEE is a 46 year old Female who is Hospital Day # 7 and POD #3 for 1. Exploration of spinal fusion;2. Reduction of L4/5 dislocation;2. L5-pelvis instrumented fusion with posterolateral arthrodesis;4. Extension of instrumentation with multiple kwame construct and side connectors. Objective Data: Objective Information: T PRBPSpO2 [id number]/8495% Date/Time09/20 15: 4: 4: 4: 4:00 Range(36.9C [...] Intake and Output ----- Mn/Dy/Year TimeIntakeOutputNet Sep 19, 2021 10:00 [id number] Sep 19, 2021 6:00 [id number] The Intake and Output Totals for the last 24 hours are: IntakeOutputNet [id number] Physical Exam by System: Neurological: A&Ox3 RUE [...] Chronic pain recs- intra-op ketamine, meloxicam post-op, OIL AND GAS RECRUITER until good PT eval, Suboxone as OP [...] the following: I personally evaluated the patient [id number] Comments/ Additional Findings The patient has been [...] 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 Normal [facility] Laboratory - Blood bankon ABO group Nom (Bld) O MG-Ga stroen Headroom 6 [facility] Work Phone: Blood group antibody investigation (P/RBC) [Interp] Anti-E [facility] Work Phone: Blood group antibody screen Ql Positive [facility]-Gastroen terology-[place] 6 [facility] Work Phone: Rh immune globulin screen (Bld) [Interp] Positive [facility]astroen terology-[place] 6 [facility] Work Phone: ABO group Nom (Bld) Canceled MG-Ga stroen terology-[place] 6 [facility] Work Phone: Comment on above: CALLED MERA SPEARS, 09/21/2021 05:08 Blood group antibody screen Ql Canceled [facility]astroen [facility]ology-[place] 6 [facility] Work Phone: Comment on above: CALLED MERA SPEARS, 09/21/2021 05:08 Rh immune globulin screen (Bld) [Interp] Canceled [facility]astroen terology-[place] [facility] 6 [facility] Work Phone: Comment on above: CALLED MERA SPEARS, 09/21/2021 05:08 Laboratory - Hematology and [...] [facility]-Gastroen terology-[place] 6 [facility] Work Phone: Platelets (Bld) [#/Vol] 269 10*3/uL 150 - 450 [facility]astroen [facility]ology-[place] [facility] 6 [facility] Work Phone: RBC (Bld) [#/Vol] 3.81 {x10E12/L} [...] [facility]-Gastroen terology-[place] [facility] 6 [facility] Work Phone: Platelets (Bld) [#/Vol] 215 10*3/uL 150 - 450 [facility]astroen terology-[place] [facility] 6 [facility] Work Phone: RBC (Bld) [#/Vol] 3.93 {x10E12/L} below low threshold See Below [facility]-Gastroen terology-[place] 6 [facility] Work Phone: Comment on above: Reference Range: 4.0 0 - 5.20 WBC (Bld) [#/Vol] 14.8 10*3/uL above high threshold 4.4 - 11.3 [facility]astroen terology-[place] [facility] 6 I Work Phone: NR MRI L-SPINE WOon 09-21-19 22 NR MRI L-SPINE WO Patient Name: MORALES LEE STUDY: MRI T-SPINE WO; MRI L-SPINE WO; 09/20/2021 10:40 pm; 09/20/2021 10:42 pm INDICATION: postop foot weakness, Lie Flat: Yes, Pre Med: No . COMPARISON: MRI December 24, [address] of the lumbar spine September 18, 2021 ACCESSION NUMBER(S): [id number]; [id number] ORDERING CLINICIAN: DEVANTE STARKS TECHNIQUE: Sagittal axial [...] Electronically signed by: NATALIA WALL, DO Normal [facility] NR MRI T-SPINE WOon 09-21-19 22 NR MRI T-SPINE WO Patient Name: MORALES LEE STUDY: MRI T-SPINE WO; MRI L-SPINE WO; 09/20/2021 10:40 pm; 09/20/2021 10:42 pm INDICATION: postop foot weakness, Lie Flat: Yes, Pre Med: No . COMPARISON: MRI December 24, [address] of the lumbar spine September 18, 2021 ACCESSION NUMBER(S): [id number]; [id number] ORDERING CLINICIAN: DEVANTE STARKS TECHNIQUE: Sagittal axial [...] space at S1-2. Electronically signed by: NATALIA WALL DO Normal [facility] No Panel Informationon 09-21 0.0 {/100_WBC} 0.0-0.0 MG-Gastroe n terology-[place] 6 I Work Phone: ORDER RECD [facility]-Gastroen terology-[place] 6 [facility] Work Phone: 0.0 {/100_WBC} 0.0-0.0 MG-Gastroe n terology-[place] 6 I Work Phone: Please click on the link to view the study images Normal [facility] 6 I Work Phone: Path Review Immunohematology on 09-21-2021 Path Review Immunohematology ZURDO [facility]-Gastroen terology-[place] 6 I Work Phone: Comment on above: By her/his [...] Preop Checklist Preop Checklist: Preop Checklist: Arrival [id number] Arrival Time11:00 Procedure Typere-exploration of spine Temperature C36.2 degrees C Temperature F97.1 degrees F Heart Rate91 beats per minute Respiratory Rate18 breath per minute Blood Pressure Pggxcsic221 mm/Hg Blood Pressure Gcjgphynm70 mm/Hg COVID 19 Results in Last 7 [...] 21-Sep-2021 11:17 by Linh Buchanan (RN) Normal [facility] REQUEST-LEUKOREDUCED RED ANJU LSon 09-21-2021 REQUEST-LEUKOREDUCED RED CELLS ORDER RECD Normal [facility] Comment on above: Performed By: #### A FPA3 #### [facility] [address] [place] [address] TYPE + SCREENon 09-21-2021 ABO TYPE O Normal [facility] Comment on above: Performed By: #### A FPA3 #### [facility] [address] [place] [address] RH TYPE Positive Normal [facility] Comment on above: Performed By: #### A FPA3 #### [facility] [address] [place] [address] ABO TYPE Canceled Normal [facility] Comment on above: Order Comment: VENECIA ESPINO, 09/21/2021 05:08TEST TYPE + SCREEN WAS CANCELLED, 09/21/2021 05:06 NO PHLEB ID ON TUBE. Result Comment: CALL ED MERA ESPINO, 09/21/2021 05:08 Performed By: #### A FPA3 #### [facility] [address] [place] [id number] RH TYPE Canceled Normal [facility] Comment on above: Order Comment: VENECIA ESPINO, 09/21/2021 05:08TEST TYPE + SCREEN WAS CANCELLED, 09/21/2021 05:06 NO PHLEB ID ON TUBE. Result Comment: CALL NERY ESPINO, 09/21/2021 05:08 Performed By: #### A FPA3 #### [facility] [address] [place] [id number] CBCon 09-20-2021 Erythrocyte distribution width (RBC) [Ratio] 13.2 % Normal 11.5 - 14.5 [facility] Comment on above: Performed By: #### C BC #### [facility] [address] [place] [address] Hematocrit (Bld) [Volume fraction] 30.8 % Low 36.0 - 46.0 [facility] Comment on above: Performed By: #### C BC #### [facility] [address] [place] [address] Hemoglobin (Bld) [Mass/Vol] 9.8 g/dL Low 12.0 - 16.0 [facility] Comment on above: Performed By: #### C BC #### [facility] [address] [place] [address] MCHC (RBC) [Mass/Vol] 31.8 g/dL Low 32.0 - 36.0 [facility] Comment on above: Performed By: #### C BC #### [facility] [address] [place] [address] MCV (RBC) [Entitic vol] 93 fL Normal 80 - 100 [facility] Comment on above: Performed By: #### C BC #### [facility] [address] [place] [address] NUCLEATED RBC 0.0 /100 WBC Normal 0.0-0.0 [facility] Comment on above: Performed By: #### C BC #### [facility] [address] [place] [address] Platelets (Bld) [#/Vol] 224 10*3/uL Normal 150 - 450 [facility] Comment on above: Performed By: #### C BC #### [facility] [address] [place] [address] RBC 3.32 x10E12/L Low 4.00 - 5.20 [facility] Comment on above: Performed By: #### C BC #### [facility] [address] [place] [address] WBC (Bld) [#/Vol] 12.1 10*3/uL High 4.4 - 11.3 [facility] Comment on above: Performed By: #### C #### [facility] [address] [place] [address] Daily Progress Note-Neurosjudy leonidasgaurang 09-20-2021 Daily Progress Note-Neurosurgery Service: Neurosurgery Subjective Data: MORALES LEE is a 46 year old Female who is Hospital Day # 6 and POD #2 for 1. Exploration of spinal fusion;2. Reduction of L4/5 dislocation;2. L5-pelvis instrumented fusion with posterolateral arthrodesis;4. Extension of instrumentation with multiple kwame construct and side connectors. Objective Data: Objective Information: T PRBPSpO2 [id number]/5095% Date/Time09/19 16: 1: 16: 1: 1:34 Range(36.7C - 36.7C ) (84 - 110 ) (18 - 18 ) (82 - 118 )/ (50 - 97 ) (94% - 97% ) As of 19-Sep-2021 08:00:00, patient is on 2 L/min of oxygen via nasal cannula. ---- Intake and Output ----- Mn/Dy/Year TimeIntakeOutputNet Sep 18, 2021 10:00 [id number] The Intake and Output Totals for the [...] chronic pain recs- intra-op ketamine, meloxicam post-op, OIL AND GAS RECRUITER until good PT eval, Suboxone as OP [...] Updated: 21-Sep-2021 11:28 by Perez Carlisle) Normal [facility] Laboratory - Hematology and Cell countson 09-20-2021 [...] terology-[place] [facility] 6 I Work Phone: MRI T Spine without Contrast on 09-20-2021 MR Thoracic spine WO contrast Normal [facility]astroen terology-[place] [facility] 6 I Work Phone: No Panel Informationon 09-20 ORDER RECD [facility]-Gastroen terology-[place] [facility] 6 [facility] Work Phone: 0.0 {/100_WBC} 0.0-0.0 MG-Gastroe n terology-[place] [facility] 6 [facility] Work Phone: OT Evaluation v2-occupationa l therapyon [...] 20-Sep-2021 12:25 by Carole Carlos (OT) Normal [facility] PT Evaluation v2-attemptedon 09-20-2021 PT Evaluation v2-attempted Rehab: Info: Mode of Treatmentattempted Time IN12:00 Evaluation Not PerformedPer RN pt not appropriate for therapy, pt continues to have low BP and plan to receive blood, will hold and reattempt as appropriate Electronic Signatures: Kaykay Yoo (PT) (Signed 20-Sep-2021 12:42) Authored: Info Last Updated: 20-Sep-2021 12:42 by Kaykay Yoo (PT) Normal [facility] REQUEST-LEUKOREDUCED RED ANJU LSon 09-20-2021 REQUEST-LEUKOREDUCED RED CELLS ORDER RECD Normal [facility] Comment on above: Performed By: #### R ENAL #### [facility] [address] [place] [address] CBCon 09-19-2021 Erythrocyte distribution width (RBC) [Ratio] 12.4 % Normal 11.5 - 14.5 [facility] Comment on above: Performed By: #### R ENAL #### [facility] [address] [place] [address] Hematocrit (Bld) [Volume fraction] 38.3 % Normal 36.0 - 46.0 [facility] Comment on above: Performed By: #### R ENAL #### [facility] [address] [place] [address] Hemoglobin (Bld) [Mass/Vol] 13.4 g/dL Normal 12.0 - 16.0 [facility] Comment on above: Performed By: #### R ENAL #### [facility] [address] [place] [address] MCHC (RBC) [Mass/Vol] 35.0 g/dL Normal 32.0 - 36.0 [facility] Comment on above: Performed By: #### R ENAL #### [facility] [address] [place] [address] MCV (RBC) [Entitic vol] 85 fL Normal 80 - 100 [facility] Comment on above: Performed By: #### R ENAL #### [facility] [address] [place] [address] NUCLEATED RBC 0.0 /100 WBC Normal 0.0-0.0 [facility] Comment on above: Performed By: #### R ENAL #### [facility] [address] [place] [address] Platelets (Bld) [#/Vol] 326 10*3/uL Normal 150 - 450 [facility] Comment on above: Performed By: #### R ENAL #### [facility] [address] [place] [address] RBC 4.51 x10E12/L Normal 4.00 - 5.20 [facility] Comment on above: Performed By: #### R ENAL #### [facility] [address] [place] [address] WBC (Bld) [#/Vol] 20.5 10*3/uL High 4.4 - 11.3 [facility] Comment on above: Performed By: #### R ENAL #### [facility] [address] [place] [address] CBC AND DIFFERENTIALon 09-19 % AUTOMATED IMMATURE GRAN 0.6 % Normal 0.0 - 0.9 [facility] Comment on above: Result Comment: Jaleesa ture Granulocyte Count (IG) includes promyelocytes, myelocytes and metamyelocytes but does not include bands. Percent differential counts (%) should be interpreted in the context of the absolute cell counts (cells/L). Performed By: #### V FPA3 #### [facility] [address] [place] [address] Basophils (Bld) [#/Vol] 0.03 10*3/uL Normal 0.00 - 0.10 [facility] Comment on above: Performed By: #### V FPA3 #### [facility] [address] [place] [address] Basophils/100 WBC (Bld) 0.1 % Normal 0.0 - 2.0 [facility] Comment on above: Performed By: #### V FPA3 #### [facility] [address] [place] [address] Eosinophils (Bld) [#/Vol] 0.01 10*3/uL Normal 0.00 - 0.70 [facility] Comment on above: Performed By: #### V FPA3 #### [facility] [address] [place] [address] Eosinophils/100 WBC (Bld) 0.0 % Normal 0.0 - 6.0 [facility] Comment on above: Performed By: #### V FPA3 #### [facility] [address] [place] [address] Erythrocyte distribution width (RBC) [Ratio] 12.9 % Normal 11.5 - 14.5 [facility] Comment on above: Performed By: #### V FPA3 #### [facility] [address] [place] [address] Hematocrit (Bld) [Volume fraction] 38.3 % Normal 36.0 - 46.0 [facility] Comment on above: Performed By: #### V FPA3 #### [facility] [address] [place] [address] Hemoglobin (Bld) [Mass/Vol] 12.7 g/dL Normal 12.0 - 16.0 [facility] Comment on above: Performed By: #### V FPA3 #### [facility] [address] [place] [address] Lymphocytes (Bld) [#/Vol] 2.89 10*3/uL Normal 1.20 - 4.80 [facility] Comment on above: Performed By: #### V FPA3 #### [facility] [address] [place] [address] Lymphocytes/100 WBC (Bld) 13.5 % Normal 13.0 - 44.0 [facility] Comment on above: Performed By: #### V FPA3 #### [facility] [address] [place] [address] MCHC (RBC) [Mass/Vol] 33.2 g/dL Normal 32.0 - 36.0 [facility] Comment on above: Performed By: #### V FPA3 #### [facility] [address] [place] [address] MCV (RBC) [Entitic vol] 89 fL Normal 80 - 100 [facility] Comment on above: Performed By: #### V FPA3 #### [facility] [address] [place] [address] Monocytes (Bld) [#/Vol] 1.23 10*3/uL High 0.10 - 1.00 [facility] Comment on above: Performed By: #### V FPA3 #### [facility] [address] [place] [address] Monocytes/100 WBC (Bld) 5.7 % Normal 2.0 - 10.0 [facility] Comment on above: Performed By: #### V FPA3 #### [facility] [address] [place] [address] Neutrophils (Bld) [#/Vol] 17.16 10*3/uL High 1.20 - 7.70 [facility] Comment on above: Performed By: #### V FPA3 #### [facility] [address] [place] [address] Neutrophils/100 WBC (Bld) 80.1 % Normal 40.0 - 80.0 [facility] Comment on above: Performed By: #### V FPA3 #### [facility] [address] [place] [address] NUCLEATED RBC 0.0 /100 WBC Normal 0.0-0.0 [facility] Comment on above: Performed By: #### V FPA3 #### [facility] [address] [place] [address] Platelets (Bld) [#/Vol] 401 10*3/uL Normal 150 - 450 [facility] Comment on above: Performed By: #### V FPA3 #### [facility] [address] [place] [address] RBC 4.28 x10E12/L Normal 4.00 - 5.20 [facility] Comment on above: Performed By: #### V FPA3 #### [facility] [address] [place] [address] WBC (Bld) [#/Vol] 21.5 10*3/uL High 4.4 - 11.3 [facility] Comment on above: Performed By: #### V FPA3 #### [facility] [address] [place] [address] COAGULATION SCREENon 022 aPTT Coag (Bld) [Time] 29 s Normal 26 - 39 [facility] Comment on above: Result Comment: Note new reference range as of 08/04/2021 at 10:00am. Performed By: #### R ENAL #### [facility] [address] [place] [address] PT Coag (PPP) [Time] 11.5 s Normal 9.8 - 13.4 [facility] Comment on above: Result Comment: Note new reference range as of 08/04/2021 at 10:00am. Performed By: #### R ENAL #### [facility] [address] [place] [address] PT, INR 1.0 Normal 0.9 - 1.1 [facility] Comment on above: Performed By: #### R ENAL #### [facility] [address] [place] [address] Complete Blood Count + Diffjacque dasilva 09-19-2021 Basophils/100 WBC (Bld) 0.1 % 0.0 [...] (Bld) 80.1 % See Below [facility] [...] 0.6 % 0.0 - 0.9 [facility] I Work Phone: Comment on above: Immature Granulocyte Count (IG) includes promyelocytes, myelocytes and metamyelocytes but does not include bands. Percent differential counts (%) should be interpreted in the context of the absolute cell counts (cells/L). Complete Blood Count + Differential 0.0 {/100_WBC} 0.0-0.0 [facility] 6 [facility] Work Phone: Complete Blood Count + Differential 0.03 {x10E9/L} See Below [facility] I Work Phone: Comment on above: Reference Range: 0.0 0 - 0.10 Complete Blood Count + Differential 0.01 {x10E9/L} See Below [facility] I Work Phone: Comment on above: Reference Range: 0.0 0 - 0.70 Complete Blood Count + Differential 1.23 {x10E9/L} above high threshold See Below [facility] I [...] Range: 1.2 0 - 7.70 Daily Progress Note-Neurosur geryon 09-19-2021 Daily Progress Note-Neurosurgery Service: Neurosurgery Subjective Data: MORALES LEE is a 46 year old Female who is Hospital Day # 4 and POD #0 for 1. Exploration of spinal fusion;2. Reduction of L4/5 dislocation;2. L5-pelvis instrumented fusion with posterolateral arthrodesis;4. Extension of instrumentation with multiple kwame construct and side connectors. Objective Data: Objective Information: T PRBPSpO2 [id number]/8596% Date/Time09/18 17: 17: 17: 17: 17:40 Range(36.4C [...] ----- Mn/Dy/Year TimeIntakeOutputNet Sep 17, 2021 10:00 [id number] The Intake and Output Totals for the last 24 hours are: IntakeOutputNet [id number] Physical Exam by System: Neurological: A&Ox3 RUE D5, B5, T5, HG5, IO5 LUE D4+, B4+, T4+, HG4+, IO5 RLE HF 4+, KE4+, PF5, DF5 (pain limited) LLE HF 4-, KE4-, PF4, DF5 Recent Lab Results: Results: Recent Arterial Blood Gas Results 09/18/2021 11:48 [id number] 24 h range: ( 219 - 224 ) pH7.44 24 h range: ( 7.44 - 7.45 ) iMC483 24 h range: ( 37 - 40 ) KP6412 24 h range: ( 100 - 100 ) Base Excess2.8 24 h range: ( 1.8 - 2.8 ) Zeucniohtny64.2 24 h range: ( 25.7 - 27.2 [...] the note. I personally evaluated the patient [id number] Comments/ Additional Findings Patients postoperative CT scan [...] Assessment an (more content not included)... Normal [facility] Laboratory - Coagulationon 0 09-19-2021 aPTT Coag [...] - 13.4 [facility] 6 [facility] Work Phone: Comment on above: Note new reference r ishmael as of 08/04/2021 at 10:00am. MAGNESIUMon 09-19-2021 Magnesium [Mass/Vol] 1.59 mg/dL Low 1.60 - 2.40 [facility] Comment on above: Performed By: #### R ENAL #### [facility] [address] [place] [address] PT Evaluation v2-attemptedon 09-19-2021 PT Evaluation v2-attempted Rehab: Info: Mode of Treatmentattempted Time IN11:37 Time OUT11:50 Total Treatment [id number] Evaluation Not PerformedHistory obtained, BP assessed in supine 79/54mmHg, RN notified and redone with 71/51mmHg, will hold PT eval at this time and reattempt as medically appropriate Electronic Signatures: Kaykay Yoo (PT) (Signed 19-Sep-2021 12:14) Authored: Info Last Updated: 19-Sep-2021 12:14 by Kaykay Yoo (PT) Normal [facility] RENAL FUNCTION PANELon 09-19 Albumin [Mass/Vol] 3.4 g/dL Normal 3.4 - 5.0 [facility] Comment on above: Performed By: #### A FPA3 #### [facility] [address] [place] [address] Anion gap [Moles/Vol] 18 mmol/L Normal 10 - 20 [facility] Comment on above: Performed By: #### A FPA3 #### [facility] [address] [place] [address] Calcium [Mass/Vol] 8.3 mg/dL Low 8.6 - 10.6 [facility] Comment on above: Performed By: #### A FPA3 #### [facility] [address] [place] [address] Chloride [Moles/Vol] 100 mmol/L Normal 98 - 107 [facility] Comment on above: Performed By: #### A FPA3 #### [facility] [address] [place] [address] Creatinine [Mass/Vol] 0.60 mg/dL Normal 0.50 - 1.05 [facility] Comment on above: Performed By: #### A FPA3 #### [facility] [address] [place] [address] eGFR FEMALE >90 Normal >90 [facility] Comment on above: Result Comment: CALC ULATIONS OF ESTIMATED GFR ARE PERFORMED USING THE 2020 CKD-EPI STUDY REFIT EQUATION WITHOUT THE RACE VARIABLE FOR THE IDMS-TRACEABLE CREATININE METHODS. https://jasn.asnjournals.org/content/early//ASN.5793096 988 Performed By: #### A FPA3 #### [facility] [address] [place] [address] Glucose [Mass/Vol] 82 mg/dL Normal 74 - 99 [facility] Comment on above: Performed By: #### A FPA3 #### [facility] [address] [place] [address] HCO3 (Bld) [Moles/Vol] 26 mmol/L Normal 21 - 32 [facility] Comment on above: Performed By: #### A FPA3 #### [facility] [address] [place] [address] Phosphate [Mass/Vol] 2.8 mg/dL Normal 2.5 - 4.9 [facility] Comment on above: Result Comment: The performance characteristics of phosphorus testing in heparinized plasma have been validated by the individual laboratory site where testing is performed. Testing on heparinized plasma is not approved by the FDA; however, such approval is not necessary. Performed By: #### A FPA3 #### [facility] [address] [place] [address] Potassium [Moles/Vol] 4.5 mmol/L Normal 3.5 - 5.3 [facility] Comment on above: Performed By: #### A FPA3 #### [facility] [address] [place] [address] Sodium [Moles/Vol] 139 mmol/L Normal 136 - 145 [facility] Comment on above: Performed By: #### A FPA3 #### [facility] [address] [place] [address] Urea nitrogen [Mass/Vol] 9 mg/dL Normal 6 - 23 [facility] Comment on above: Performed By: #### A FPA3 #### [facility] [address] [place] [address] Albumin [Mass/Vol] 3.6 g/dL Normal 3.4 - 5.0 [facility] Comment on above: Performed By: #### R ENAL #### [facility] [address] [place] [address] Anion gap [Moles/Vol] 13 mmol/L Normal 10 - 20 [facility] Comment on above: Performed By: #### R ENAL #### [facility] [address] [place] [address] Calcium [Mass/Vol] 8.9 mg/dL Normal 8.6 - 10.6 [facility] Comment on above: Performed By: #### R ENAL #### [facility] [address] [place] [address] Chloride [Moles/Vol] 100 mmol/L Normal 98 - 107 [facility] Comment on above: Performed By: #### R ENAL #### [facility] [address] [place] [address] Creatinine [Mass/Vol] 0.51 mg/dL Normal 0.50 - 1.05 [facility] Comment on above: Performed By: #### R ENAL #### [facility] [address] [place] [address] eGFR FEMALE >90 Normal >90 [facility] Comment on above: Result Comment: CALC ULATIONS OF ESTIMATED GFR ARE PERFORMED USING THE 2020 CKD-EPI STUDY REFIT EQUATION WITHOUT THE RACE VARIABLE FOR THE IDMS-TRACEABLE CREATININE METHODS. https://jasn.asnjournals.org/content/early/ASN.4190771 988 Performed By: #### R ENAL #### [facility] [address] [place] [address] Glucose [Mass/Vol] 123 mg/dL High 74 - 99 [facility] Comment on above: Performed By: #### R ENAL #### [facility] [address] [place] [address] HCO3 (Bld) [Moles/Vol] 28 mmol/L Normal 21 - 32 [facility] Comment on above: Performed By: #### R ENAL #### [facility] [address] [place] [address] Phosphate [Mass/Vol] 2.8 mg/dL Normal 2.5 - 4.9 [facility] Comment on above: Result Comment: The performance characteristics of phosphorus testing in heparinized plasma have been validated by the individual laboratory site where testing is performed. Testing on heparinized plasma is not approved by the FDA; however, such approval is not necessary. Performed By: #### R ENAL #### [facility] [address] [place] [address] Potassium [Moles/Vol] 4.3 mmol/L Normal 3.5 - 5.3 [facility] Comment on above: Performed By: #### R ENAL #### [facility] [address] [place] [address] Sodium [Moles/Vol] 137 mmol/L Normal 136 - 145 [facility] Comment on above: Performed By: #### R ENAL #### [facility] [address] [place] [address] Urea nitrogen [Mass/Vol] 8 mg/dL Normal 6 - 23 [facility] Comment on above: Performed By: #### R ENAL #### [facility] [address] [place] [address] Renal Function Panelon 09-19 Albumin BCP dye [Mass/Vol] 3.4 g/dL 3.4 - 5.0 [facility] I Work Phone: Anion gap [Moles/Vol] 18 mmol/L 10 - 20 [facility] I Work Phone: Calcium [Mass/Vol] 8.3 mg/dL below [...] - 4.9 [facility] [facility] 6 [facility] Work Phone: Comment on above: The performance arsalan acteristics of phosphorus testing in heparinized plasma have been validated by the individual laboratory site where testing is performed. Testing on heparinized plasma is not approved by the FDA; however, such approval is not necessary. Potassium [Moles/Vol] 4.5 mmol/L 3.5 - 5.3 [facility] 6 [facility] Work Phone: Sodium [Moles/Vol] 139 mmol/L 136 - 145 [facility] troen terology[facility] [facility] 6 [facility] Work Phone: Urea nitrogen [Mass/Vol] 9 mg/dL 6 - 23 [facility] I Work Phone: Renal Function Panel >90 >90 [facility] 6 [facility] Work Phone: Comment on above: CALCULATIONS OF IVY MATED GFR ARE PERFORMED USING THE 2020 CKD-EPI STUDY REFIT EQUATION WITHOUT THE RACE VARIABLE FOR THE IDMS-TRACEABLE CREATININE METHODS.https://jasn.asnjournals.org/content//ASN .8060169855 ANTIBODY IDENT.on 09-18-2021 ANTIBODY IDENT. Anti-E Normal [facility] Comment on above: Performed By: #### A FPA3 #### [facility] [address] [place] [address] ARTERIAL FULL PANELon 2021 Anion gap [Moles/Vol] 5 mmol/L Low 10 - 25 [facility] Comment on above: Performed By: #### A FPA3 ####[id number] [place] [address] BASE EXCESS-BLOOD 2.8 mmol/L Normal -2.0 - 3.0 [facility] Comment on above: Performed By: #### A FPA3 ####[id number] [place] [address] BICARB, CALCULATED 27.2 mmol/L High 22.0 - 26.0 [facility] Comment on above: Performed By: #### A FPA3 ####[id number] [place] [address] CALCIUM,IONIZED 1.20 mmol/L Normal 1.10 - 1.33 [facility] Comment on above: Performed By: #### A FPA3 ####[id number] [place] [address] Chloride [Moles/Vol] 106 mmol/L Normal 98 - 107 [facility] Comment on above: Performed By: #### A FPA3 ####[id number] [place] [address] Glucose [Mass/Vol] 149 mg/dL High 74 - 99 [facility] Comment on above: Performed By: #### A FPA3 ####[id number] [place] [address] Hematocrit (Bld) [Volume fraction] 38.0 % Normal 36.0 - 46.0 [facility] Comment on above: Performed By: #### A FPA3 ####[id number] [place] [address] HGB,CALCULATED 12.9 g/dL Normal 12.0 - 16.0 [facility] Comment on above: Performed By: #### A FPA3 ####[id number] [place] [address] Lactate [Moles/Vol] 0.9 mmol/L Normal 0.4 - 2.0 [facility] Comment on above: Performed By: #### A FPA3 ####[id number] [place] [address] Oxygen (Bld) [Partial pressure] 219 mm[Hg] High 85 - 95 [facility] Comment on above: Performed By: #### A FPA3 ####[id number] [place] [address] PATIENT TEMPERATURE 37.0 degrees C Normal [facility] Comment on above: Result Comment: NOTE : PATIENT RESULTS ARE NOT CORRECTED FOR TEMPERATURE. Performed By: #### A FPA3 ####[id number] [place] [address] PCO2 40 mmHg Normal 38 - 42 [facility] Comment on above: Performed By: #### A FPA3 ####[id number] [place] [address] pH (Bld) 7.44 [pH] High 7.38 - 7.42 [facility] Comment on above: Performed By: #### A FPA3 ####[id number] [place] [address] Potassium [Moles/Vol] 4.4 mmol/L Normal 3.5 - 5.3 [facility] Comment on above: Performed By: #### A FPA3 ####[id number] [place] [address] SO2 100 % Normal 94 - 100 [facility] Comment on above: Performed By: #### A FPA3 ####[id number] [place] [address] Sodium [Moles/Vol] 134 mmol/L Low 136 - 145 [facility] Comment on above: Performed By: #### A FPA3 ####[id number] [place] [address] Anion gap [Moles/Vol] 7 mmol/L Low 10 - 25 [facility] Comment on above: Performed By: #### A FPA3 #### [facility] [address] [place] [address] BASE EXCESS-BLOOD 1.8 mmol/L Normal -2.0 - 3.0 [facility] Comment on above: Performed By: #### A FPA3 #### [facility] [address] [place] [address] BICARB, CALCULATED 25.7 mmol/L Normal 22.0 - 26.0 [facility] Comment on above: Performed By: #### A FPA3 #### [facility] [address] [place] [address] CALCIUM,IONIZED 1.20 mmol/L Normal 1.10 - 1.33 [facility] Comment on above: Performed By: #### A FPA3 #### [facility] [address] [place] [address] Chloride [Moles/Vol] 105 mmol/L Normal 98 - 107 [facility] Comment on above: Performed By: #### A FPA3 #### [facility] [address] [place] [address] Glucose [Mass/Vol] 174 mg/dL High 74 - 99 [facility] Comment on above: Performed By: #### A FPA3 #### [facility] [address] [place] [address] Hematocrit (Bld) [Volume fraction] 37.0 % Normal 36.0 - 46.0 [facility] Comment on above: Performed By: #### A FPA3 #### [facility] [address] [place] [address] HGB,CALCULATED 12.6 g/dL Normal 12.0 - 16.0 [facility] Comment on above: Performed By: #### A FPA3 #### [facility] [address] [place] [address] Lactate [Moles/Vol] 1.1 mmol/L Normal 0.4 - 2.0 [facility] Comment on above: Performed By: #### A FPA3 #### [facility] [address] [place] [address] Oxygen (Bld) [Partial pressure] 224 mm[Hg] High 85 - 95 [facility] Comment on above: Performed By: #### A FPA3 #### [facility] [address] [place] [address] PATIENT TEMPERATURE 37.0 degrees C Normal [facility] Comment on above: Result Comment: NOTE : PATIENT RESULTS ARE NOT CORRECTED FOR TEMPERATURE. Performed By: #### A FPA3 #### [facility] [address] [place] [address] PCO2 37 mmHg Low 38 - 42 [facility] Comment on above: Performed By: #### A FPA3 #### [facility] [address] [place] [address] pH (Bld) 7.45 [pH] High 7.38 - 7.42 [facility] Comment on above: Performed By: #### A FPA3 #### [facility] [address] [place] [address] Potassium [Moles/Vol] 3.9 mmol/L Normal 3.5 - 5.3 [facility] Comment on above: Performed By: #### A FPA3 #### [facility] [address] [place] [address] SO2 100 % Normal 94 - 100 [facility] Comment on above: Performed By: #### A FPA3 #### [facility] [address] [place] [address] Sodium [Moles/Vol] 134 mmol/L Low 136 - 145 [facility] Comment on above: Performed By: #### A FPA3 #### [facility] [address] [place] [address] CT L Spine without Contrasto n 09-18-2021 CT Lumbar spine limited WO contrast Normal [facility] I Work Phone: Daily Progress Note-Anesthes [...] connectors. Objective Data: Objective Information: T PRBPSpO2 [id number]/4391% Date/Time09/18 6: 5: 5: 5: 5:56 Range(37C - 37C [...] Recent Arterial Blood Gas Results 09/18/2021 11:48 [id number] 24 h range: ( 219 - 224 ) pH7.44 24 h range: ( 7.44 - 7.45 ) bND723 24 h range: ( 37 - 40 ) DN0262 24 h range: ( 100 - 100 ) Base Excess2.8 24 h range: ( 1.8 - 2.8 ) Staigyjvqay16.2 24 h range: ( 25.7 - 27.2 ) Assessment and Plan: Code Status: Code StatusFull Code Electronic Signatures: Bryan Mora) (Signed 18-Sep-2021 14:47) Authored: Service, Subjective Data, Objective Data, Assessment and Plan, Note Completion Last Updated: 18-Sep-2021 14:47 by Bryan Mora) [facility] Daily Progress Note-Neurosjudy stearns 09-18-2021 Daily Progress Note-Neurosurgery Service: Neurosurgery Subjective Data: MORALES LEE is a 46 year old Female who is Hospital Day # 4. Objective Data: Objective Information: T PRBPSpO2 [id number]/4391% Date/Time09/18 6: 5: 5: 5: 5:56 Range(36.6C [...] Severe ---- Intake and Output ----- Mn/Dy/[facility]Out[facility] Sep 17, 2021 10:00 [id number] Sep 17, 2021 2:00 [id number] The Intake and Output Totals for the [...] the note. I personally evaluated the patient [id number] Electronic Signatures: Fidel Maciel (Resident)) (Signed 18-Sep-2021 06:55) Authored: Service, Subjective Data, Objective Data, Assessment and Plan, Note Completion Lex Frederick) (Signed 19-Sep-2021 10:18) Authored: Note Completion Co-Signer: Service, Subjective Data, Objective Data, Assessment and Plan, Note Completion Last Updated: 19-Sep-2021 10:18 by Lex Frederick) Normal [facility] Laboratory - Chemistry and C hemistry - [...] terology-[place] [facility] Work Phone: CO2 (Bld) [Partial pressure] 40 mm[Hg] 38 - 42 [facility]-Gastroen terology-[place] [facility] Work Phone: Glucose [Mass/Vol] 149 mg/dL above [...] 6 I Work Phone: HCO3 (Bld) [Moles/Vol] 25.7 mmol/L [...] I Work Phone: Anion gap (Bld) [Moles/Vol] 6 mmol/L below low threshold 10 - 25 [facility]-Gastroen terology-[place] 6 I Work Phone: Calcium.ionized (Bld) [Moles/Vol] 1.17 mmol/L See Below [facility]-Gastroen terology-[place] 6 I Work Phone: Comment on above: Reference Range: 1.1 0 - 1.33 Chloride [Moles/Vol] 103 mmol/L 98 - 107 MG-G astroen terology-[place] [facility] Work Phone: CO2 (BldV) [Partial pressure] 42 mm[Hg] 41 - 51 [facility]-Gastroen terology-[place] [facility] Work Phone: Glucose [Mass/Vol] 188 mg/dL above high threshold 74 - 99 [facility]-Gastroen terology-[place] [facility] Work Phone: HCO3 (Bld) [Moles/Vol] 28.5 mmol/L [...] Range: 12. 0 - 16.0 Magnesium, Serumon Magnesium [Mass/Vol] 1.59 mg/dL below low threshold [...] dated 10/07/2020. MRI dated 12/11/2020 ACCESSION NUMBER(S): [id number] ORDERING CLINICIAN: ANGELO JUAREZ TECHNIQUE: Thin cut [...] as stated. This study was interpreted at [place], [place]. Electronically signed by: BOONE LAO MD Normal [facility] No Panel Informationon 09-18 0.0 {/100_WBC} 0.0-0.0 [...] Respiratory Rate15 breath per minute Blood Pressure [id number] mm/Hg Blood Pressure [id number] mm/Hg COVID 19 Results in Last 7 [...] 18-Sep-2021 06:59 by Lian Zuleta (SANAZ) Normal [facility] Radiologyon 09-18-2021 XR Chest Single view Normal [facility] astroen terology-[place] [facility] Work Phone: Renal Function Panelon 09-18 Albumin BCP dye [Mass/Vol] 3.6 g/dL 3.4 - 5.0 [facility]-Gastroen terology-[place] [facility] Work Phone: Anion gap [Moles/Vol] 13 mmol/L 10 - 20 [facility]-Gastroen terology-[place] 6 [facility] Work Phone: Calcium [Mass/Vol] 8.9 mg/dL 8.6 - 10.6 MG-Gas troen terology-[place] 6 [facility] Work Phone: Chloride [Moles/Vol] 100 mmol/L 98 - 107 MG-G astroen terology-[place] 6 [facility] Work Phone: CO2 [Moles/Vol] 28 mmol/L 21 - 32 MG-Gastro en terology-[place] 6 [facility] Work Phone: Creatinine [Mass/Vol] 0.51 mg/dL See Below [facility]-Gastroen terology-[place] [facility] Work Phone: Comment on above: Reference Range: 0.5 0 - 1.05 Glucose [Mass/Vol] 123 mg/dL above high threshold 74 - 99 [facility]astroen [facility]ology[facility] [facility] Work Phone: Phosphate [Mass/Vol] 2.8 mg/dL 2.5 - 4.9 MG-G astroen terology-[place] [facility] Work Phone: Comment on above: The performance [...] RACE VARIABLE FOR THE IDMS-TRACEABLE CREATININE METHODS.https://jasn.asnjournals.org/content/early//ASN .3634323380 TH CHEST; 1 VIEWon 2 TH CHEST; 1 VIEW Patient Name: MORALES LEE STUDY: CHEST; 1 VIEW; 09/18/2021 2:38 pm INDICATION: s/p central line placement (right IJ double lumen) . COMPARISON: Radiograph dated 09/15/2021 ACCESSION NUMBER(S): [id number] ORDERING CLINICIAN: BRYAN MORA FINDINGS: Right IJ [...] Electronically signed by: LORELEI JOHNSTON MD Normal [facility] VENOUS FULL PANELon 09-18-19 Anion gap [Moles/Vol] 6 mmol/L Low 10 - 25 [facility] Comment on above: Performed By: #### V FPA3 #### [facility] [address] [place] [address] BASE EXCESS-BLOOD 3.9 mmol/L High -2.0 - 3.0 [facility] Comment on above: Performed By: #### V FPA3 #### [facility] [address] [place] [address] BICARB, CALCULATED 28.5 mmol/L High 22.0 - 26.0 [facility] Comment on above: Performed By: #### V FPA3 #### [facility] [address] [place] [address] CALCIUM,IONIZED 1.17 mmol/L Normal 1.10 - 1.33 [facility] Comment on above: Performed By: #### V FPA3 #### [facility] [address] [place] [address] Chloride [Moles/Vol] 103 mmol/L Normal 98 - 107 [facility] Comment on above: Performed By: #### V FPA3 #### [facility] [address] [place] [address] Glucose [Mass/Vol] 188 mg/dL High 74 - 99 [facility] Comment on above: Performed By: #### V FPA3 #### [facility] [address] [place] [address] Hematocrit (Bld) [Volume fraction] 39.0 % Normal 36.0 - 46.0 [facility] Comment on above: Performed By: #### V FPA3 #### [facility] [address] [place] [address] HGB,CALCULATED 13.3 g/dL Normal 12.0 - 16.0 [facility] Comment on above: Performed By: #### V FPA3 #### [facility] [address] [place] [address] Lactate [Moles/Vol] 1.2 mmol/L Normal 0.4 - 2.0 [facility] Comment on above: Performed By: #### V FPA3 #### [facility] [address] [place] [address] Oxygen (Bld) [Partial pressure] 56 mm[Hg] High 35 - 45 [facility] Comment on above: Performed By: #### V FPA3 #### [facility] [address] [place] [address] PATIENT TEMPERATURE 37.0 degrees C Normal [facility] Comment on above: Result Comment: NOTE : PATIENT RESULTS ARE NOT CORRECTED FOR TEMPERATURE. Performed By: #### V FPA3 #### [facility] [address] [place] [address] PCO2 42 mmHg Normal 41 - 51 [facility] Comment on above: Performed By: #### V FPA3 #### [facility] [address] [place] [address] pH (Bld) 7.44 [pH] High 7.33 - 7.43 [facility] Comment on above: Performed By: #### V FPA3 #### [facility] [address] [place] [address] Potassium [Moles/Vol] 4.1 mmol/L Normal 3.5 - 5.3 [facility] Comment on above: Performed By: #### V FPA3 #### [facility] [address] [place] [address] SO2 91 % High 45 - 75 [facility] Comment on above: Performed By: #### V FPA3 #### [facility] [address] [place] [address] Sodium [Moles/Vol] 133 mmol/L Low 136 - 145 [facility] Comment on above: Performed By: #### V FPA3 #### [facility] [address] [place] [address] CORONAVIRUS 2019, SCREEN ASY MPTOMATICon 09-17-2021 SARS-CoV-2 (COVID-19) RNA ADRIÁN+probe Ql (Unsp spec) Not detected Normal Not Detected [facility] Comment on above: Result Comment: . This test has received FDA Emergency Use Authorization (EUA) and has been verified by [facility] ([facility]). This test is only authorized for the duration of time that circumstances exist to justify the authorization of the emergency use of in vitro diagnostic tests for the detection of SARS-CoV-2 virus and/or diagnosis of COVID-19 infection under section 564(b)(1) of the Act, 21 U.S.C. 360bbb-3(b)(1), unless the authorization is terminated or revoked sooner. [facility] is certified under CLIA-88 as qualified to perform high complexity testing. Testing is performed in the [facility] located at [address] [place] [address]. SARS-CoV-2/Flu/RSV Multiplex Test: Fact sheet for providers: https://www.fda.gov/media/154603/download Fact sheet for patients: https://www.fda.gov/media/090710/download Performed By: #### C OVSC ####[id number] [place] [address] Lab Specimen Source Nasal, Nasopharyngeal Normal [facility] Comment on above: Performed By: #### C OVSC ####[id number] [place] [address] Coronavirus 2019 RNA by PCR, Screening Asymptomticon 09-17-2021 Coronavirus 2019 RNA by PCR, Screening Asymptomtic Not detected Normal See Below -Gastroen terology-[place] 6 [facility] Work Phone: Comment on above: SOURCE: Nasal, Nasop haryngealReference Range: Not Detected.This test has received FDA Emergency Use Authorization (EUA) and has been verified by [facility] ([facility]). This test is only authorized for the duration of time that circumstances exist to justify the authorization of the emergency use of in vitro diagnostic tests for the detection of SARS-CoV-2 virus and/or diagnosis of COVID-19 infection under section 564(b)(1) of the Act, 21 U.S.C. 360bbb-3(b)(1), unless the authorization is terminated or revoked sooner. [facility] is certified under CLIA-88 as qualified to perform high complexity testing. Testing is performed in the [facility] located at [address] [place] [address].SARS-CoV-2/Flu/RSV Multiplex Test: Fact sheet for providers: https://www.fda.gov/media/459335/downloadFact sheet for patients: https://www.fda.gov/media/285797/download Covid 19 Resultson 2 SARS-CoV-2 (COVID-19) RNA [...] You may also be contacted by the [place] Department of Health to see if any of your close [...] or Naproxen (Aleve) can also be used. Npuj-wmf-umeddav cough and cold medicines can be used according to the instructions on the package. Some kxlm-wvm-efclgil medicines also contain acetaminophen. Make sure you [...] water are not available, use alcohol-based hand latexer. Avoid touching your eyes, nose, and mouth [...] 24 mariella (more content not included)... Normal [facility] Daily Progress Note - Psychi atryon 09-17-2021 [...] pain but found it well-controlled on Dilaudid OIL AND GAS RECRUITER and 5/10 mg oxycodone. Pt is interested [...] he has been working (cardoza at a [employer]), but she looks forward to his arrival [...] her suboxone. Objective: Objective Information: T PRBPSpO2 Value36.72009810/9095% Date/Time09/17 4: 10: 10: 10: 10:00 Range(35.7C - 36.6C ) (81 - 89 ) (10 - 23 ) (73 - 117 )/ (43 - 90 ) (91% - 96% ) As of 17-Sep-2021 08:00:00, patient is on 3 L/min of oxygen via nasal cannula. Pain reported at 09/17 8:00: 8 = Severe ---- Intake and Output ----- Mn/Dy/Year TimeIntakeOutputNet Sep 17, 2021 6:00 [id number] Sep 16, 2021 2:00 [id number] The Intake and Output Totals for the last 24 hours are: IntakeOutputNet [id number] Mental Status Exam: General: Awake, lying in [...] a Da (more content not included)... Normal [facility] Daily Progress Note-Neurosur jinny 09-17-2021 Daily Progress Note-Neurosurgery Service: Neurosurgery Subjective Data: MORALES LEE is a 46 year old Female who is Hospital Day # 3. Objective Data: Objective Information: T PRBPSpO2 Value35.7347189/4393% Date/Time09/16 18:5409/16 18:5409/16 18:5409/16 18:5409/16 18:54 Range(35.7C - 36.4C ) (81 - 91 ) (15 - 24 ) (87 - 118 )/ (43 - 84 ) (91% - 96% ) As of 16-Sep-2021 18:54:00, patient is on 2 L/min of oxygen via nasal cannula. Pain reported at 09/16 16:34: 10 = Severe ---- Intake and Output ----- Mn/Dy/Year TimeIntakeOutputNet Sep 16, 2021 2:00 [id number] Physical Exam by System: Neurological: A&Ox3 RUE [...] the note. I personally evaluated the patient [id number] Comments/ Additional Findings I again explained to [...] Updated: 19-Sep-2021 10:16 by Lex Frederick) Normal [facility] HCG,URINEon 09-17-2021 Beta HCG ( test) Ql (U) Negative Normal Negative [facility] Comment on above: Performed By: #### A FPA3 #### [facility] [address] [place] [address] Laboratory - Blood bankon ABO group Nom (Bld) O MG-Ga stroen terology-[place] 6 I Work Phone: Blood group antibody investigation (P/RBC) [Interp] Anti-E [facility]-Gastroen terology-[place] 6 I Work Phone: Blood group antibody screen Ql Positive [facility]-Gastroen terology-[place] 6 I Work Phone: Rh immune globulin screen (Bld) [Interp] Positive [facility]ology-[place] 6 I Work Phone: No Panel Informationon 09-17 ORDER RECD [facility]-Gastroen terology-[place] 6 I Work Phone: Path Review Immunohematology on 09-17-2021 Path Review Immunohematology LETA [facility]astroen terology-[place] 6 I Work Phone: Comment on above: By her/his [...] 09-17-2021 REQUEST-LEUKOREDUCED RED CELLS ORDER RECD Normal [facility] Comment on above: Performed By: #### O TAXATION ECONOMIST #### [facility] [address] [place] [address] TYPE + SCREENon 09-17-2021 ABO TYPE O Normal [facility] Comment on above: Performed By: #### T +S #### [facility] [address] [place] [address] RH TYPE Positive Normal [facility] Comment on above: Performed By: #### T +S #### [facility] [address] [place] [address] Urine Teston 09-17 HCG ( test) Ql (U) Negative Negative [facility]-Gastroen terology-[place] 6 [facility] Work Phone: BNPon 09-16-2021 Natriuretic peptide B (Bld) [Mass/Vol] 37 pg/mL Normal 0 - 99 [facility] Comment on above: Result Comment: . <1 [...] information. Performed By: #### A FPA3 #### [facility] [address] [place] [address] CBC AND DIFFERENTIALon 09-16 % AUTOMATED IMMATURE GRAN 0.5 % Normal 0.0 - 0.9 [facility] Comment on above: Result Comment: Jaleesa ture Granulocyte Count (IG) includes promyelocytes, myelocytes and metamyelocytes but does not include bands. Percent differential counts (%) should be interpreted in the context of the absolute cell counts (cells/L). Performed By: #### C BCDF ####[id number] [place] [address] Basophils (Bld) [#/Vol] 0.04 10*3/uL Normal 0.00 - 0.10 [facility] Comment on above: Performed By: #### C BCDF ####[id number] [place] [address] Basophils/100 WBC (Bld) 0.5 % Normal 0.0 - 2.0 [facility] Comment on above: Performed By: #### C BCDF ####[id number] [place] [address] Eosinophils (Bld) [#/Vol] 0.26 10*3/uL Normal 0.00 - 0.70 [facility] Comment on above: Performed By: #### C BCDF ####[id number] [place] [address] Eosinophils/100 WBC (Bld) 3.0 % Normal 0.0 - 6.0 [facility] Comment on above: Performed By: #### C BCDF ####[id number] [place] [address] Erythrocyte distribution width (RBC) [Ratio] 13.0 % Normal 11.5 - 14.5 [facility] Comment on above: Performed By: #### C BCDF ####[id number] [place] [address] Hematocrit (Bld) [Volume fraction] 42.7 % Normal 36.0 - 46.0 [facility] Comment on above: Performed By: #### C BCDF ####[id number] [place] [address] Hemoglobin (Bld) [Mass/Vol] 14.1 g/dL Normal 12.0 - 16.0 [facility] Comment on above: Performed By: #### C BCDF ####[id number] [place] [address] Lymphocytes (Bld) [#/Vol] 3.17 10*3/uL Normal 1.20 - 4.80 [facility] Comment on above: Performed By: #### C BCDF ####[id number] [place] [address] Lymphocytes/100 WBC (Bld) 37.2 % Normal 13.0 - 44.0 [facility] Comment on above: Performed By: #### C BCDF ####[id number] [place] [address] MCHC (RBC) [Mass/Vol] 33.0 g/dL Normal 32.0 - 36.0 [facility] Comment on above: Performed By: #### C BCDF ####[id number] [place] [address] MCV (RBC) [Entitic vol] 91 fL Normal 80 - 100 [facility] Comment on above: Performed By: #### C BCDF ####[id number] [place] [address] Monocytes (Bld) [#/Vol] 0.47 10*3/uL Normal 0.10 - 1.00 [facility] Comment on above: Performed By: #### C BCDF ####[id number] [place] [address] Monocytes/100 WBC (Bld) 5.5 % Normal 2.0 - 10.0 [facility] Comment on above: Performed By: #### C BCDF ####[id number] [place] [address] Neutrophils (Bld) [#/Vol] 4.55 10*3/uL Normal 1.20 - 7.70 [facility] Comment on above: Performed By: #### C BCDF ####[id number] [place] [address] Neutrophils/100 WBC (Bld) 53.3 % Normal 40.0 - 80.0 [facility] Comment on above: Performed By: #### C BCDF ####[id number] [place] [address] NUCLEATED RBC 0.0 /100 WBC Normal 0.0-0.0 [facility] Comment on above: Performed By: #### C BCDF ####[id number] [place] [address] Platelets (Bld) [#/Vol] 278 10*3/uL Normal 150 - 450 [facility] Comment on above: Performed By: #### C BCDF ####[id number] [place] [address] RBC 4.70 x10E12/L Normal 4.00 - 5.20 [facility] Comment on above: Performed By: #### C BCDF ####[id number] [place] [address] WBC (Bld) [#/Vol] 8.5 10*3/uL Normal 4.4 - 11.3 [facility] Comment on above: Performed By: #### C BCDF ####[id number] [place] [address] COAGULATION SCREENon 022 aPTT Coag (Bld) [Time] 31 s Normal 26 - 39 [facility] Comment on above: Result Comment: Note new reference range as of 08/04/2021 at 10:00am. Performed By: #### V FPA3 #### [facility] [address] [place] [address] PT Coag (PPP) [Time] 11.6 s Normal 9.8 - 13.4 [facility] Comment on above: Result Comment: Note new reference range as of 08/04/2021 at 10:00am. Performed By: #### V FPA3 #### [facility] [address] [place] [address] PT, INR 1.0 Normal 0.9 - 1.1 [facility] Comment on above: Performed By: #### V FPA3 #### [facility] [address] [place] [address] Clinical Event Note-ADMISSIO N CLARIFICATIONon 09-16-2021 Clinical [...] and monitoring for withdrawal. Provider/Team Contact Info-Pager [phone] Electronic Signatures: Doerfler, Sharmin (AUTOMATED MANUFACTURING INSTRUCTOR-SHELLFISH DREDGE OPERATOR) (Signed 16-Sep-2021 12:07) Authored: Clinical Event Note Last Updated: 16-Sep-2021 12:07 by Sharmin Guaman (AUTOMATED MANUFACTURING INSTRUCTOR-SHELLFISH DREDGE OPERATOR) Normal [facility] Complete Blood Count + Diffe dedetialon 09-16-2021 Basophils/100 WBC (Bld) 0.5 % 0.0 - 2.0 [facility]astroen [facility]ology[facility] [facility] Work Phone: Erythrocyte distribution width (RBC) [Ratio] [...] 6 [facility] Work Phone: Monocytes/100 WBC (Bld) 5.5 % 2.0 - 10.0 [facility]-Gastroen terology-[place] 6 [facility] Work Phone: Neutrophils/100 WBC (Bld) 53.3 % [...] - 11.3 MG-Gas troen terology-[place] 6 [facility] Work Phone: Complete Blood Count + Differential 0.04 {x10E9/L} See Below MG-Gastroen terology-[place] 6 I Work Phone: Comment on above: Reference Range: 0.0 0 - 0.10 Complete Blood Count + Differential 0.26 {x10E9/L} See Below MG-Gastroen terology-[place] ell 6 [...] 0.0 - 0.9 [facility]-Gastroen terology-[place] 6 [facility] Work Phone: Comment on above: Immature Granulocyte Count (IG) includes promyelocytes, myelocytes and metamyelocytes but does not include bands. Percent differential counts (%) should be interpreted in the context of the absolute cell counts (cells/L). Complete Blood Count + Differential 0.0 {/100_WBC} 0.0-0.0 [facility]-Gastroen terology-[place] 6 I Work Phone: Consult-Painon 09-16-2021 Consult-Pain [...] the note. I personally evaluated the patient [id number] Electronic Signatures: Chidi Lamar (Fellow)) (Signed 16-Sep-2021 08:54) Authored: History of Present Illness, Review Family/Social History and ROS, Allergies Aaron Fernandes (Resident)) (Signed 16-Sep-2021 15:24) Authored: Service, History of Present Illness, Review Family/Social History and ROS, Objective, Assessment/Recommendations, Note Completion Chidi Dobbs) (Signed 16-Sep-2021 18:21) Authored: Assessment/Recommendations, Note Completion Co-Signer: Assessment/Recommendations, Note Completion Last Updated: 16-Sep-2021 18:21 by Chidi Dobbs () References: 1. Data Referenced From Consult - Psychiatry 15-Sep-2021 20:42 Normal [facility] Consult-Perioperative Medici neon 09-16-2021 Consult-Perioperativ e Medicine [...] penicillin: Unknown Objective: Objective Information: T PRBPSpO2 Value36.51068939/8491% Date/Time09/16 11:13112 12:4909/16 12:4909/16 12:4909/16 12:49 Range(36.3C [...] 100 mg (more content not included)... Normal [facility] Cult, Urineon 09-16-2021 Bacteria identified Cx Nom (U) Abnormal MG-Gastroen terology-[facility] moura 6 [facility] Work Phone: Daily Progress Note-Neurosur jinny 09-16-2021 Daily Progress Note-Neurosurgery Service: Neurosurgery Subjective Data: MORALES LEE is a 46 year old Female who is Hospital Day # 3. Objective Data: Objective Information: T PRBPSpO2 Value36.1824467/6693% Date/Time09/16 1:411 4: 4: 4: 4:00 Range(36.3C - 36.3C [...] (suboxone) in AM COWS psych recs SCD's, SQH Attestation: Note [...] the note. I personally evaluated the patient [id number] Comments/ Additional Findings TO OR this Tuesday if medically optimized for T12 - Pelvis fusion and Instrumentation. Pain consult for management regrading Suboxone and pain control in the perioperative period. US LE MRI of the lumbar spine., Lex Frederick MD, [facility], FAANS Director - Minimally Invasive Spine Surgery [facility] Switch Operator of Neurological Surgery [facility] [employer] [place], [place] Electronic Signatures: Fidel Maciel (Resident)) (Signed 16-Sep-2021 04:33) Authored: Service, Subjective Data, Objective Data, Assessment and Plan, Note Completion Lex Frederick) (Signed 16-Sep-2021 10:22) Authored: Note Completion Co-Signer: Service, Subjective Data, Objective Data, Assessment and Plan, Note Completion Last Updated: 16-Sep-2021 10:22 by Lex Frederick) Normal [facility] EMR ADDONon 09-16-2021 ADDON CONFIRMATION REQUEST REC'D Normal [facility] Comment on above: Performed By: #### E MRAD ####NO LOCATION NEEDED Laboratory - Coagulationon 0 09-16-2021 aPTT Coag (PPP) [Time] 31 s 26 - 39 [facility] [facility] I Work Phone: Comment on above: Note new reference r ishmael as of 08/04/2021 at 10:00am. INR Coag (PPP) [Relative time] 1.0 {INR} 0.9 - 1.1 [facility] [facility] 6 I Work Phone: PT Coag (PPP) [Time] 11.6 s 9.8 - 13.4 MG-G astroen terology-[place] 6 I Work Phone: Comment on above: Note new reference r ishmael as of 08/04/2021 at 10:00am. No Panel Informationon 09-16 37 pg/mL 0 - 99 [facility]astro[facility]ology[facility] [facility] 6 I Work Phone: Comment on above: . <100 pg/mL - Heart failure [id number] pg/mL - Intermediate probability of acute heart. [...] [Mass/Vol] 3.5 g/dL Normal 3.4 - 5.0 [facility] Comment on above: Performed By: #### R ENAL #### [facility] [address] [place] [address] Anion gap [Moles/Vol] 14 mmol/L Normal 10 - 20 [facility] Comment on above: Performed By: #### R ENAL #### [facility] [address] [place] [address] Calcium [Mass/Vol] 8.9 mg/dL Normal 8.6 - 10.6 [facility] Comment on above: Performed By: #### R ENAL #### [facility] [address] [place] [address] Chloride [Moles/Vol] 101 mmol/L Normal 98 - 107 [facility] Comment on above: Performed By: #### R ENAL #### [facility] [address] [place] [address] Creatinine [Mass/Vol] 0.63 mg/dL Normal 0.50 - 1.05 [facility] Comment on above: Performed By: #### R ENAL #### [facility] [facility] [address] [place] [address] eGFR FEMALE >90 Normal >90 [facility] Comment on above: Result Comment: CALC ULATIONS OF ESTIMATED GFR ARE PERFORMED USING THE 2020 CKD-EPI STUDY REFIT EQUATION WITHOUT THE RACE VARIABLE FOR THE IDMS-TRACEABLE CREATININE METHODS. https://jasn.asnjournals.org/content//ASN.5979448 988 Performed By: #### R ENAL #### [facility] [address] [place] [address] Glucose [Mass/Vol] 88 mg/dL Normal 74 - 99 [facility] Comment on above: Performed By: #### R ENAL #### [facility] [address] [place] [address] HCO3 (Bld) [Moles/Vol] 29 mmol/L Normal 21 - 32 [facility] Comment on above: Performed By: #### R ENAL #### [facility] [address] [place] [address] Phosphate [Mass/Vol] 3.4 mg/dL Normal 2.5 - 4.9 [facility] Comment on above: Result Comment: The performance characteristics of phosphorus testing in heparinized plasma have been validated by the individual laboratory site where testing is performed. Testing on heparinized plasma is not approved by the FDA; however, such approval is not necessary. Performed By: #### R ENAL #### [facility] [address] [place] [address] Potassium [Moles/Vol] 3.7 mmol/L Normal 3.5 - 5.3 [facility] Comment on above: Performed By: #### R ENAL #### [facility] [address] [place] [address] Sodium [Moles/Vol] 140 mmol/L Normal 136 - 145 [facility] Comment on above: Performed By: #### R ENAL #### [facility] [address] [place] [address] Urea nitrogen [Mass/Vol] 10 mg/dL Normal 6 - 23 [facility] Comment on above: Performed By: #### R ENAL #### [facility] [address] [place] [address] Renal Function Panelon 09-16 Albumin BCP dye [...] RACE VARIABLE FOR THE IDMS-TRACEABLE CREATININE METHODS.https://jasn.asnjournals.org/content/early/ASN .0190476966 UA MICROSCOPICon 09-16-2021 BACTERIA 2+ /HPF Abnormal [facility] Comment on above: Performed By: #### U AMIC ####[id number] [place] [address] Mucus Ql (Urine sed) 1+ /LPF Normal [facility] Comment on above: Performed By: #### U AMIC ####[id number] [place] [address] RBC 3 /HPF Normal 0-5 [facility] Comment on above: Performed By: #### U AMIC ####[id number] [place] [address] SQUAMOUS EPITH. CELLS 2 /HPF Normal [facility] Comment on above: Performed By: #### U AMIC ####[id number] [place] [address] WBC 115 /HPF Abnormal 0-5 [facility] Comment on above: Performed By: #### U AMIC ####[id number] [place] [address] URINALYSISon 09-16-2021 Appearance (U) HAZY Normal CLEAR [facility] Comment on above: Performed By: #### U A ####[id number] [place] [address] Bilirubin Ql (U) Negative Normal NEGATIVE [facility] Comment on above: Performed By: #### U A ####[id number] [place] [address] Color (U) YELLOW Normal STRAW,YELLO W [facility] Comment on above: Performed By: #### U A ####[id number] [place] [address] Glucose Ql (U) Negative Normal NEGATIVE [facility] Comment on above: Performed By: #### U A ####[id number] [place] [address] Hemoglobin Ql (U) Negative Normal NEGATIVE [facility] Comment on above: Performed By: #### U A ####[id number] [place] [address] Ketones Ql (U) Negative Normal NEGATIVE [facility] Comment on above: Performed By: #### U A ####[id number] [place] [address] Leukocyte esterase Test strip Ql (U) LARGE (3+) Abnormal NEGATIVE [facility] Comment on above: Performed By: #### U A ####[id number] [place] [address] Nitrite Ql (U) Positive Abnormal NEGATIVE [facility] Comment on above: Performed By: #### U A ####[id number] [place] [address] pH (U) 6.0 [pH] Normal 5.0 - 8.0 [facility] Comment on above: Performed By: #### U A ####[id number] [place] [address] Protein Ql (U) Negative Normal NEGATIVE [facility] Comment on above: Performed By: #### U A ####[id number] [place] [address] Specific gravity (U) [Rel density] 1.011 Normal 1.005 - 1.035 [facility] Comment on above: Performed By: #### U A ####[id number] [place] [address] Urobilinogen (U) [Mass/Vol] 2.0 mg/dL High 0.0 - 1.9 [facility] Comment on above: Result Comment: Due to [...] positive urobilinogen. Performed By: #### U A ####[id number] [place] [address] URINE CULTURE,BACTERIALon URINE CULTURE,BACTERIAL PATIENT: MORALES LEE LOCATION: [facility]#: [id number] : 71 AGE: SEX: F ORDERED BY: TOSHA BORJA SOURCE: URINE COLLECTED: 09/16/21 08:42 ANTIBIOTICS AT [facility].: RECEIVED : 09/16/21 17:08 SITE: R E S U L T S URINE CULTURE,BACTERIAL FINAL 09/18/21 09:19 ISOLATE1 : Escherichia coli >100,000 CFU/ML Organism E coli Antibiotic BP INTRP Ampicillin S Ceftriaxone S Cefazolin S Ciprofloxacin R Nitrofurantoin S Gentamicin S Levofloxacin R Piperc/Tazobact S Trimeth/Sulfa S S=SUSCEPTIBLE I=INTERMEDIATE R=RESISTANT SDD=SUSCEPTIBLE DOSE DEPENDENT NS=NONSUSCEPTIBLE X=REPORTED IN ERROR Normal [facility] Comment on above: Performed By: #### A FPA3 #### [facility] [address] [place] [address] Urinalysison 09-16-2021 Color (U) YELLOW See Below [facility] Work Phone: Comment on above: Reference Range: STR AW,YELLOW Glucose Ql (U) Negative NEGATIVE [facility] Work Phone: Ketones Ql (U) Negative NEGATIVE [facility] Work Phone: Leukocyte esterase Test strip Ql (U) LARGE (3+) Abnormal NEGATIVE [facility] Work Phone: pH (U) 6.0 [pH] 5.0 - 8.0 [facility] Work Phone: Protein (U) [Mass/Vol] Negative NEGATIVE [facility] Work Phone: RBC (U) [#/Vol] Negative NEGATIVE [facility] Work Phone: Specific gravity (U) [Rel density] 1.011 1 See Below [facility] Work Phone: Comment on above: Reference Range: 1.0 05 - 1.035 Urinalysis Positive Abnormal NEGATIVE [facility] Work Phone: Urinalysis 2.0 mg/dL above high threshold 0.0 - 1.9 [facility] [address] Work Phone: Comment on above: Due to [...] Urinalysis Negative NEGATIVE [facility] Work Phone: Urinalysis HAZY CLEAR [facility] I Work Phone: Urinalysis, Microscopicon Urinalysis, Microscopic 1+ [facility] Work Phone: Urinalysis, Microscopic 2+ Abnormal [facility] Work Phone: Urinalysis, Microscopic 2 {/HPF} [facility] Work Phone: Urinalysis, Microscopic 3 {/HPF} 0-5 [facility] Work Phone: Urinalysis, Microscopic 115 {/HPF} Abnormal 0-5 [facility] Work Phone: VASC LAB Venous Duplex Ultra sound DVTon 09-16-2021 VASC LAB Venous Duplex Ultrasound DVT [place] [address] and Vascular Lab Report Lower Venous Duplex Ultrasound Patient Name: MORALES LEE Reading Physician: [id number] YOLIE Clements MD Study Date: 09/16/2021 Referring Physician: [id number] RAGSDALE MRN/PID: [id number] PCP: Accession/Order#: [id number] CC Report to: Date of : 1975 Technologist: Isai Burleson RVT Gender: F Technologist 2: Admission Status: Outpatient Location Performed: [facility] Diagnosis/ICD: M79.89-Left leg swelling; M79.89-Right leg swelling Procedure/CPT: 15412 Peripheral venous duplex scan for DVT complete-40087 CONCLUSIONS: Right Lower Venous: No evidence of [...] Spontaneous/Phasic Peroneal Yes None PTV Yes None [id number] YOLIE Clements MD Final Normal [facility] VAS LAB Venous Duplex Ultra sound for DVTon 09-16-2021 [facility] Venous Duplex Ultrasound for DVT [facility] Work Phone: No Panel Informationon 09-15 [email or web address]?Ret rieveTestByDateTime?Patient RC=[id number]&Date= 2&Time=19%3a14%3a23%3a00&Te stType=ECG&Site=1&OutputTyp e=PDF&Ext=PDF [facility] Work Phone: Normal sinus rhythm [facility] Work Phone: Abnormal [facility] Work Phone: 448 1 [facility] Work Phone: 422 1 [facility] Work Phone: 186 1 [facility] Work Phone: 149 1 [facility] Work Phone: 224 1 [facility] Work Phone: 14 1 [facility] Work Phone: 26 1 [facility] [...] lwell 6 I Work Phone: [email or web address]?Ret rieveTestByDateTime?Patient IW=[id number]&Date= 2&Time=19%3a14%3a42%3a00&Te stType=ECG&Site=1&OutputTyp e=PDF&Ext=PDF [facility] Work Phone: 446 1 [facility] Work Phone: 420 1 [facility] Work Phone: 189 1 [facility] Work Phone: 147 1 [facility] Work Phone: 222 1 [facility] Work Phone: 27 1 [facility] Work Phone: 31 1 [facility] Work Phone: 46 1 [facility] Work Phone: 473 1 [facility] Work Phone: 86 1 [facility] Work Phone: Order Reconciliationon 09-15 Order Reconciliation Page 1 Admission Reconciliation Document Reconciliation Type: Admission requested on behalf of Concetta Shi (Advanced Practice Nurse) done by Concetta Shi ([facility]) Admission - Reconciliation: 15-Sep-2021 19:03 by: Fidel Maciel ( (Resident)) Admission - Reset to Incomplete: 15-Sep-2021 21:47 by: Fidel Maciel ( (Resident)) Admission - Reconciliation: 15-Sep-2021 21:49 by: Fidel Maciel ( (Resident)) Admission - Reset to Incomplete: 16-Sep-2021 00:41 by: Fidel Maciel ( (Resident)) Admission - Reconciliation: 16-Sep-2021 00:42 by: Fidel Maciel ( (Resident)) Admission - Reset to Incomplete: 30-Sep-2021 14:18 by: Concetta Shi ([facility]) Admission - Reconciliation: 30-Sep-2021 14:20 by: Concetta Shi ([facility]) Home MedicationsEnteredLast Dose TakenReconciled with current Order Reconciliation Comment/ Additional Information acetaminophen 325 mg oral tablet 2 tab(s) orally every 6 hours, as needed while having post operative [id number] Reviewed and Held Ambien CR 12.5 mg oral tablet, extended release 1 tab(s) oral yyh28-Piy-4285 Zolpidem Tablet (AMBIEN)DOSE = 10 mg Oral At BedtimeNotes from Pharmacy: Substitution For Zolpidem (Ambien CR) 12.5 mg at Bedtime Ambien CR 12.5 mg oral tablet, extended release continued as the inpatient order Zolpidem Ankle Foot Orthosis for foot oyqs69-Oin-7436 Reviewed and Held betamethasone topical valerate 0.1% topical cream 1 milena topical prn 15-Sep-2021 EnteredInError Reviewed and Held Bilateral Prafos - orthotics to fit, - ICD 10: R26.0, M21.37, M62.81 30-Sep-2021 Reviewed and Held calcium-vitamin D 500 mg-200 intl units (5 mcg) oral tablet 1 tab(s) orally 4 times a kek29-Eqt-4389 Calcium 500 mg - Vitamin D 200 [...] times a day, as needed for muscle atgbyl40-Lfa-7843 Cyclobenzaprine Tablet (FLEXERIL)DOSE = 10 mg Oral [...] topical 1% topical gel 1 milena topical fay04-Clo-2408 Reviewed and Held DULoxetine 30 mg oral [...] 2 tab(s) orally once a day, As Nlnbik06-Pfp-2463 Reviewed and Held gabapentin 800 mg oral tablet 1 tab(s) oral 3 times a vkk48-Hef-1492 Gabapentin Capsule (NEURONTIN)DOSE = 800 mg Oral 3 Times a Day gabapentin 800 mg oral tablet continued as the inpatient order Gabapentin LEFT AFO -Orthotics to fit, ICD 10: M21.1065-Pyd-3798 Reviewed and Held lidocaine 5% topical film Apply topically to affected area once a day, As Needed near surgical incision for incisional pain 15-Sep-2021 EnteredInError Reviewed and Held lisinopril 20 mg oral tablet 1 tab(s) oral once a bsq53-Nse-6643 Lisinopril Tablet (PRINIVIL, ZESTRIL)DOSE = 20 mg [...] patch TransDermal Every 24 HoursNotes from Pharmacy: RA nicotine 14 mg/24 hr transdermal film, extended [...] - available over the counter at any rgjosjbm56-Tbz-8418 Reviewed and Held RIGHT AFO - Orthotics to fit, - M21.4545-Brm-5498 Reviewed and Held sennosides-docusate 8.6 mg-50 mg oral tablet 2 tab(s) orally 2 times a day , -Take while using oxycodone for post operative pain to prevent contipation 15-Sep-19 (more content not included)... Normal [facility] Radiologyon 09-15-2021 XR Chest Single view Normal [facility] Work Phone: TH CHEST 1 VIEWon 09-15-2021 TH CHEST 1 VIEW Patient Name: MORALES LEE STUDY: CHEST 1 VIEW; 09/15/2021 7:21 pm INDICATION: pre-op . COMPARISON: 12/26/2020. ACCESSION NUMBER(S): [id number] ORDERING CLINICIAN: TOSHA BORJA FINDINGS: CARDIOMEDIASTINAL SILHOUETTE: Cardiomediastinal silhouette is normal in size and configuration. LUNGS: Lungs are clear of focal airspace disease or edema. No pneumothorax ABDOMEN: Elevation right hemidiaphragm again noted. BONES: Patient status post cervical spine fusion. IMPRESSION: 1. No active airspace disease. Elevation of the right hemidiaphragm and correlate with any concern for diaphragmatic dysfunction. 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 Jesus villarreal in the Neurosurgery Spine Clinic at the [facility]. She is a very pleasant 46-year-old [...] obvious instability (more content not included)... Normal [facility] No Panel Informationon 09-08 Normal [facility] Work Phone: Please click on the link to view the study images Normal [facility] Work Phone: SPINE, ENTIRE THORACIC/LUMBA R, INCLUDE [...] and T6-L4 Fusion. COMPARISON: None. ACCESSION NUMBER(S): [id number] ORDERING CLINICIAN: LEX FREDERICK FINDINGS: Fused PA [...] Electronically signed by: JOSEPH SALAZAR MD Normal [facility] Tobacco Screening.on 022 Fall risk assessment b) One or more fall s in the last year -Nuha Doyle Work Phone: Tobacco use status CPHS a) Yes -Nuha Doyle Work Phone: Established Visit (Neurosurg ariana)on 05-05-2021 Established Visit (Neurosurgery) History of Present Illness I just had the pleasure of seeing Mrs. Jesus villarreal in the Neurosurgery Spine Clinic at the [facility]. She is a very pleasant 45 -year-old female, who recently underwent a L1 Vertbrectomy and T6-L4 Fusion with me on 12/26/2020 and is status post 4 Months out from her surgery. Today's visit was a virtual visit with the patient at her home and myself at [facility]. She mentions that overall she [...] was a pleasure to participate in Ms. JESUS hollis. Lex Frederick MD, [facility], FAANS Director - Minimally Invasive Spine Surgery [facility] Tower Switch Operator of Neurological Surgery [facility] [employer] [place], [place] Some of this note was completed using [employer] voice recognition technology and sometimes the software [...] May 05 2021 9:18PM EST (Author) Normal [facility] Established Visit (Neurosurg ariana)on 01-08-2021 Established Visit [...] in the Neurosurgery Spine Clinic at the [facility]. She is a very pleasant 45 -year-old female, who recently underwent a L1 Vertbrectomy and T6-L4 Fusion with ga on 12/26/2020 and is status post 2 [...] the further treatment plan. Lex Frederick MD, [facility], FAANS Director - Minimally Invasive Spine Surgery [facility] Greeter Guest Services of Neurological Surgery [facility] [employer] [place], [place] Some of this note was completed using NLP Log[employer] voice recognition technology and sometimes the software [...] 10/28/2020 12:18:23 PM Penicillins Hives;; Recorded By: Lcuero Lowry; 10/28/2020 12:18:23 PM Current Meds Medication [...] Unspecified cord compression. COMPARISON: None. ACCESSION NUMBER(S): [id number] ORDERING CLINICIAN: LEX FREDERICK TECHNIQUE: Multiplanar and [...] spine. Electronically signed by: LENNY HAGER MD [facility] NR MRI L-SPINE WOon 12-12-19 NR MRI L-SPINE WO Patient Name: MORALES LEE STUDY: MRI L-SPINE WO; ; 12/11/2020 1:38 pm INDICATION: Lumbar Pain Scoliosis, unspecified Low back pain. COMPARISON: CT lumbar spine from 10/07/2020. MRI lumbar spine from 03/11/2016. ACCESSION NUMBER(S): [id number] ORDERING CLINICIAN: LEX FREDERICK TECHNIQUE: MRI of [...] multiple levels. This study was interpreted at [facility]. Electronically signed by: WESLEY CARBAJAL MD [facility] Initial Visit (Neurosurgery) on 10-28-2020 Initial Visit [...] Status:Resulted - Preliminary,Retrospective By Protocol Authorization; Done: [id number] 12:00AM Reason: Unspecified for Xray Spine, entire thoracic/lumbar, include skull, cervical and sacral spine when performed, 2 or 3 view Radiologist to Determine Optimal Study : Y What are the patient's signs and symptoms? : Lumbar Pain SocHx: Current smoker Tobacco Use Screening; Status:Complete; Done: 28Oct2020 Patient Discussion/Summary It was a pleasure to see Ms. LEE at the Neurosurgery Spine Clinic at [facility]. Ms. LEE is a really [...] and thoracic kyphosis few years back in [place]. She now has been having severe symptoms [...] evaluated by another spine surgeon at the [facility] who recommended urgent surgery for her [...] even walk (more content not included)... Normal Patient Engagement Systems Mary Kate 07-10-2019 [place] Telephone (SPNMMN) MORALES LEE ([id number]) 1975 F Date Time Provider Department 07/10/19 DIXIE TEE SPNMMN During your visit today, [...] Order(s):CONSULT TO ORTHOPAEDIC SURGERY [[id number]] Order #: [id number]: 1 Prescriptions as of 07/10/2019 Sig: LISINOPRIL [...] Status:Closed by DIXIE TEE MD on 07/10/[address] [facility] CNOVgiovanni 07-09-2019 CNOV Office Visit (SPNSMN ) MORALES [id number]) 1975 F Date Time Provider Department 07/09/19 9:30 AM STEVENSON QUAN SPNSMN During your visit today, we recorded the following information about you: Pulse Respiration Blood pressure Weight 89/minute 18/minute 124/74 95.8 kg Height 1.499 m Stevenson Quan MD 07/09/2019 2:56 PM Signed SPINE SURGERY OUTPATIENT CONSULT SERVICE DATE: 07/09/2019 PCP: No primary care provider on file. REFERRING PROVIDER: Dixie Tee MD [address] [facility] [address] Consult requested for an opinion regarding the [...] file Gets together: Not on file Attends episcopalian service: Not on file Active member of [...] with the patient or the patient?s personal product representative. The patient has elected to schedule [...] 10:24 AM PAGER: Referring Provider: DIXIE TEE [[id number]] Allergies As of Date: 07/09/2019 Noted Allergy Reaction CODEINE 10/24/2010 7 - Swelling PENICILLINS 10/24/2010 7 - Swelling PHENERGAN (PROMETHAZINE HCL) 10/24/2010 7 - Swelling Date Reviewed: 07/09/2019 Reviewed by: Kirstin Yang) VIDYA Godoy - Fully Assessed Reason for Visit: New Patient [172] Primary Visit Diagnosis:Sagittal plane imbalance [M43.8X9] Other Visit Diagnosis:Spinal stenosis of thoracic region [M48.04] Order(s):CT THORACIC SPINE WO IVCON [[id number]] Order #: [id number] FUTURE Prescriptions as of 07/09/2019 Sig: LISINOPRIL [...] Status:Closed by STEVENSON QUAN MD on 07/09/[address] [facility] OBSOLETEon 07-09-2019 OBSOLETE Procedure (EMGMN) MORALES LEE ([id number]) 1975 F Date Time Provider Department 07/09/19 7:45 AM EMG 1 NEUR MAIN EMGMN During your visit today, we recorded the following information about you: Referring Provider: DIXIE TEE [[id number]] Allergies As of Date: 07/09/2019 Noted Allergy Reaction CODEINE 10/24/2010 7 - Swelling PENICILLINS 10/24/2010 7 - Swelling PHENERGAN (PROMETHAZINE HCL) 10/24/2010 7 - Swelling Date Reviewed: 06/20/2019 Reviewed by: Austyn Mckenzie) MERA Berumen - Fully Assessed Reason for Visit: EMG [2012] Visit Diagnoses:Scoliosis (and kyphoscoliosis), idiopathic [M41.20] Compression fracture of thoracic vertebra, initial encounter, unspecified thoracic vertebral level (HCC) [S22.000A] H/O cervical spine surgery [Z98.890] Lesion of ulnar nerve, left upper limb [G56.22] Lesion of ulnar nerve, right upper limb [G56.21] Order(s):EMG(NEURO/NI) [[id number]] Order #: [id number]: 1 Prescriptions as of 07/09/2019 Sig: LISINOPRIL [...] Status:Closed by JHON EASON MD on 07/09/[address] [facility] PROGRESSon 07-09-2019 PROGRESS HNO ID: [id number] Author: Stevenson Quan Service: ? Author Type: Physician Type: Progress Notes Filed: 07/09/2019 2:56 PM Note Text: SPINE SURGERY OUTPATIENT CONSULT SERVICE DATE: 07/09/2019 PCP: No primary care provider on file. REFERRING PROVIDER: Dixie Tee MD [address] [facility] [address] Consult requested for an opinion regarding the [...] PREVIOUS SPINAL SURGERY: SURGERY #1: C5-C6 fusion 2015 Pre-Op: Headaches and LUE pain Post-Op: Resolved. [...] file Gets together: Not on file Attends episcopalian service: Not on file Active member of [...] with the patient or the patient?s personal product representative. The patient has elected to schedule [...] 09, 2019 TIME: 10:24 AM PAGER: Normal [facility] OT-XR DEXA BONE DENSITY IMPO RTon 07-06-2019 OT-XR DEXA BONE DENSITY IMPORT Images were obtained outside of [facility] [id number] Normal [facility] CASE MGT INIT ASSESon [address] [facility] HNO ID: [id number] Author: Kimberly (Rn) MERA Dunaway Service: ? Author Type: Registered Nurse Type: Care Mgt Initial Assessment Filed: 06/20/2019 12:25 PM Note Text: CARE MANAGEMENT: ASSESSMENT AND DISCHARGE PLAN SERVICE DATE: 06/20/2019 SERVICE TIME: 12:21 PM PRIMARY CARE PHYSICIAN: No primary care provider on file. Phone: None ADMISSION STATUS: Observation Needs Prior to Discharge: To Be Determined MEDICAL: Patient/Section Weaver Stated Goals: To have reduction in pain To have reduction in symptoms Health Insurance: BLUE CARD PPO Health Issues Impacting Discharge Plan: Chronic neck pain Last Discharge Date: 06/20/19 Is this Within the Past 30 days? No Advance Directive: Current Advance Directive: None Regional Account Executive Attempted to Assist with AD Completion: Yes [...] None Has the Patient Been in a Custodial Facility in the Past 30 days? N/A SOCIAL: Living Arrangement: Home Lives With: Spouse Financial Resources: Disabled Primary Contact: Extended Emergency Contact Information Primary Emergency Contact: JesusLars [address] [place] [address] [facility] Mobile Relation: Spouse Supportive: Yes Other [...] 0 I feel financially burdened by my [id number] expenses for my prescription medication: Disagree completely [...] with . Does not utilize any DME, mcfp or community resources. Has d/c transportation via . Anticipate transitional care plan of home, no skilled needs identified at this time. TCC will remain available to assist as needed with transition planning. SIGNATURE: Kimberly Dunaway RN PATIENT NAME: Mroales Lee DATE: June 20, 2019 TIME: 12:21 PM PAGER/CONTACT #: [phone] Normal [facility] CBCon 06-20-2019 Erythrocyte distribution width (RBC) [Ratio] 12.6 % Normal 11.5-15.0 [facility] Comment on above: Performed By: #### C BC #### [place] [phone] Hematocrit (Bld) [Volume fraction] 48.7 % High 36.0-46.0 [facility] Comment on above: Performed By: #### C BC #### [place] [phone] Hemoglobin (Bld) [Mass/Vol] 16.8 g/dL High 11.5-15.5 [facility] Comment on above: Performed By: #### C BC #### [place] [phone] MCH (RBC) [Entitic mass] 31.1 pG Normal 26.0-34.0 [facility] Comment on above: Performed By: #### C BC #### [place] [phone] MCHC (RBC) [Mass/Vol] 34.5 g/dL Normal 30.5-36.0 [facility] Comment on above: Performed By: #### C BC #### [place] [phone] MCV (RBC) [Entitic vol] 90.0 fL Normal 80.0-100.0 [facility] Comment on above: Performed By: #### C BC #### [place] [phone] Platelet mean volume (Bld) [Entitic vol] 10.6 fL Normal 9.0-12.7 [facility] Comment on above: Performed By: #### C BC #### [place] [phone] Platelets (Bld) [#/Vol] 334 10*3/uL Normal 150-400 [facility] Comment on above: Performed By: #### C BC #### [facility] [address] [place] [address] RBC (Bld) [#/Vol] 5.41 10*6/uL High 3.90-5.20 [facility] Comment on above: Performed By: #### C BC #### [facility] [address] [place] [phone] WBC (Bld) [#/Vol] 10.85 10*3/uL Normal 3.70-11.00 [facility] Comment on above: Performed By: #### C BC #### [place] [id number] [place] [address] CONSULTon 06-20-2019 CONSULT HNO ID: [id number] Author: Evelyn Resendez Service: Pain Management Author [...] controlled substances - including suboxone - from [facility]. Of note, pt has followed once in [...] me to leave. She is now leaving [place]. 3. Will sign off SUBJECTIVE CHIEF COMPLAINT: worsening of chronic neck and LUE pain HPI: Morales Parker Jesus a 44 year old female; pertinent PMH: [...] activity was identified. 06/20/2019 by Evelyn Resendez APRN.SHELLFISH DREDGE OPERATOR PAST MEDICAL HISTORY Diagnosis Date - Degenerative [...] file Gets together: Not on file Attends episcopalian service: Not on file Active member of [...] BMP, Mg, Phos Recent Labs 06/20/19 0539 06/19/192037 WBC 10.85 13.18* HB 16.8* 18.0* HCT [...] Management Center to participate in the Morales Lee's care. SIGNATURE: Evelyn Resendez APRN.ROSENDO PATIENT NAME: Morales Lee DATE: June 20, 2019 TIME: 8:24 AM PAGER/CONTACT #: [phone] (M-F [id number]) Normal [facility] CT BRAIN WO IVCONon 06-20-[address] BRAIN WO IVCON * * *Final Report* * * DATE OF EXAM: Jun 20 2019 1:31AM [facility] 0504 - CT BRAIN WO IVCON [...] No large cortical infarct or acute hemorrhage. Manual Training Teacher: PSCB Transcribe Date/Time: Jun 20 2019 1:33A Dictated by : DAVONTE MOY MD This examination was interpreted and the report reviewed and electronically signed by: DAVONTE MOY MD on Jun 20 2019 1:35AM EST [id number] Normal [facility] ECG COMPLETEon 06-20-2019 ECG COMPLETE NAME : MORALSE LEE PID : [id number] : 1975 Gender : Female Race : ORD : [id number] Procedure Date : Jun 19 2019 23:57:03 Edit Date : Jun 20 2019 07:51:18 Diagnosis:Sinus rhythm Normal ECG no STEMI 1200a Confirmed by MD ARREDONDO LISA ([id number]), communications editor FOREST WALTON ([id number]) on 06/20/2019 7:51:18 AM Ventricular Rate : 85 BPM Atrial Rate : 85 BPM P-R Interval : 137 ms QRS Duration : 91 ms Q-T Interval : 365 ms QTC Calculation(Bazett) : 434 ms P [place] : 51 degrees R [place] : -13 degrees T [place] : 61 degrees Test Reason : Chest Pain Location : 302 : ED AVED-1 Overread By : MD ARREDONDO LISA Edited By : FOREST WALTON Referred By : , Acquired by : [id number], [facility] ED NOTEon 06-20-2019 ED NOTE HNO ID: [id number] Author: Yuki Mckenzie) MERA Cruz Service: ? Author Type: Registered Nurse Type: ED Notes Filed: 06/20/2019 1:40 AM Note Text: Patient got CT, it is still pending and Jessie BONITA said ok to transfer to [place] with out results pending. Patient agreeing and understanding of transfer. updated on POC and transfer via telephone. DM here to take patient at this time. Pain is not improved at time of transfer. [facility] ED NOTE HNO ID: [id number] Author: Yuki Mckenzie) MERA Cruz Service: ? Author Type: Registered Nurse Type: ED Notes Filed: 06/20/2019 1:15 AM Note Text: Clean catch urine specimen obtained and sent. [facility] ED NOTE HNO ID: [id number] Author: Yuki Mckenzie) MERA Cruz Service: ? Author Type: Registered Nurse [...] time with getting transferred to another facility. [facility] ED NOTE HNO ID: [id number] Author: Yuki Mckenzie) MERA Cruz Service: ? Author Type: Registered Nurse Type: ED Notes Filed: 06/20/2019 3:28 AM Note Text: Patient stated Valium did not help. She continues to be in pain and upset. She wanted to speak with someone in charge and update on POC. [facility] HISTORY PHYSICALon HISTORY PHYSICAL HNO ID: [id number] Author: Talita Wesley RN Service: General Internal [...] tightness that is constant. 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 She [...] and refill of this medication. Current 1 /2 PPD for about 20 years. Denies history [...] pressure, palpitations, leg swelling. Denies hx of PR. GI: Denies nausea, vomiting, diarrhea, abdominal pain, [...] rotation 40/80% Decreased left C5-C7 sensation. Left arson and bomb investigator strength 2/5. Right arson and bomb investigator strength 5/5. UE DTR intact and equal. [...] Assessment: -Acute on chronic -H/o C6 fusion 2015 -Left arm pain, numbness/tingling, and strength progressively after fall 5 months ago hitting head -Today pain feels worse described as tightness into left arm, weak left hand arson and bomb investigator strength, and worsening severity of numbness/tingling -Afebrile [...] Needs confirmed with patient pharmacy. Patient uses [facility] in [place], [place]. Patient provided #[phone]. Will call in am to confirm dose. Nicotine Abuse Assessment AND Plan: Smokes 1 1/2 PPD for 20 years. Smoking cessation advised. Nicotine patch ordered. Medication and Non-Pharmacologic VTE Prophylaxis/Anticoagulants VTE Prophylaxis: VTE prophylaxis appropriate SIGNATURE: Talita Wesley APRN.CNP PATIENT NAME: Morales Lee DATE: June 20, 2019 TIME: 2:58 AM PAGER/CONTACT #: [facility] # [phone] [facility] NURSING PROGon 06-20-2019 NURSING PROG HNO ID: [id number] Author: Austyn WilksRn) MERA Berumen Service: Nursing Author Type: Registered Nurse Type: Nursing Progress Note Filed: 06/20/2019 3:10 PM Note Text: Nursing Progress Note Patient Name: Morales Lee Patient Location: [id number] 2 Daily Note:06/20/2019 -pt is upset regarding [...] note was completed by: AUSTYN BERUMEN RN [facility] NURSING PROG HNO ID: [id number] Author: Austyn WilksRn) MERA Berumen Service: Nursing Author Type: Registered Nurse Type: Nursing Progress Note Filed: 06/20/2019 8:10 AM Note Text: Nursing Progress Note Patient Name: Morales Lee Patient Location: [id number] 2 Daily Note:06/20/2019 -assumed care of patient, pt is requesting her suboxone. We have to call to verify dosage. -MERA Acosta called pharmacy provided by night RECORDING STUDIO INTERN and the pharmacy does not open until 9am. We will call back to verify dose later. -Dr. Kwon called to speak with this RN, he will be in to see the patient later today. This note was completed by: AUSTYN BERUMEN RN [facility] NURSING PROG HNO ID: [id number] Author: Guadalupe WilksRn) MERA Herbert Service: ? Author Type: Registered Nurse Type: Nursing Progress Note Filed: 06/20/2019 4:33 AM Note Text: Nursing Progress Note Patient Name: Morales Lee Patient Location: [id number] 2 Daily Note:DACIAO x 3. C/O left hand pain. States [...] note was completed by: Guadalupe Herbert RN [facility] PROGRESSon 06-20-2019 PROGRESS HNO ID: [id number] Author: Sedrick Martin Service: General Internal Medicine [...] rales. Cor:RSR, no murmurs. 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 DATA: Diagnostic tests [...] problems. * Medication and Non-Pharmacologic VTE Prophylaxis/Anticoagulants 06/20/19 0400 pneumatic compression stockings (fl,oh) 06/20/19 0400 activity - mobilize patient ([place], [place]) VTE Prophylaxis: appropriate SIGNATURE: Sedrick Martin MD PATIENT NAME: Morales Lee DATE: June 20, 2019 TIME: 10:41 AM PAGER: [facility] PROGRESS HNO ID: [id number] Author: Sedrick Martin Service: General Internal Medicine Author Type: Physician Type: Progress Notes Filed: 06/20/2019 8:25 AM Note Text: As per Pain Management Consult still pending, I was notified by Pain Management to resume the pt.' s home Suboxone dosage until pt. Seen later today. Normal [facility] Troponin Ton 06-20-2019 Troponin T.cardiac [Mass/Vol] ug/L Normal 0.000-0.029 [facility] Comment on above: Performed By: #### T NT #### [facility] [address] [place] [address] Troponin T.cardiac [Mass/Vol] ug/L Normal 0.000-0.029 [facility] Comment on above: Performed By: #### T NT #### [place] [id number] [place] [address] Basic Metabolic Panlon 06-19 Anion gap [Moles/Vol] 14 mmol/L Normal 9-18 [facility] Calcium [Mass/Vol] 10.3 mg/dL High 8.5-10.2 [facility] Chloride [Moles/Vol] 96 mmol/L Low 97-105 [facility] CO2 [Moles/Vol] 29 mmol/L Normal 22-30 [facility] Creatinine [Mass/Vol] 0.59 mg/dL Normal 0.58-0.96 [facility] eGFR- Amer. >60 Normal [facility] GFR/1.73 sq M predicted among non-blacks MDRD (S/P/Bld) [Vol rate/Area] mL/min/{1.73_m2} Normal [facility] Comment on above: Result Comment: eGFR [...] GFR. Glucose [Mass/Vol] 114 mg/dL High 74-99 [facility] Comment on above: Result Comment: The [place] Diabetes Association (ADA) provides guidance for cutoff [...] Standards of Medical Care in Diabetes 2016, [place] [employer] Association. Diabetes Care. 2016.39(Suppl 1). Potassium [Moles/Vol] 3.7 mmol/L Normal 3.7-5.1 [facility] Sodium [Moles/Vol] 139 mmol/L Normal 136-144 [facility] Urea nitrogen [Mass/Vol] 7 mg/dL Normal 7-21 [facility] CBC and Differentialon 06-19 Abs Baso 0.09 k/uL Normal <0.11 [facility] Abs Evangeline 0.61 k/uL Normal <0.87 [facility] Abs Neut 7.56 k/uL High 1.45-7.50 [facility] Absolute nRBC <0.01 Normal <0.01 [facility] Basophils/100 WBC (Bld) 0.7 % Normal [facility] DTYPE Auto Diff Normal [facility] Eosinophils (Bld) [#/Vol] 0.25 10*3/uL Normal <0.46 [facility] Eosinophils/100 WBC (Bld) 1.9 % Normal [facility] Erythrocyte distribution width (RBC) [Ratio] 12.0 % Normal 11.5-15.0 [facility] Hematocrit (Bld) [Volume fraction] 52.6 % High 36.0-46.0 [facility] Hemoglobin (Bld) [Mass/Vol] 18.0 g/dL High 11.5-15.5 [facility] Lymphocytes (Bld) [#/Vol] 4.67 10*3/uL High 1.00-4.00 [facility] Lymphocytes/100 WBC (Bld) 35.4 % Normal [facility] MCH (RBC) [Entitic mass] 30.0 pG Normal 26.0-34.0 [facility] MCHC (RBC) [Mass/Vol] 34.2 g/dL Normal 30.5-36.0 [facility] MCV (RBC) [Entitic vol] 87.7 fL Normal 80.0-100.0 [facility] Monocytes/100 WBC (Bld) 4.6 % Normal [facility] Neutrophils/100 WBC (Bld) 57.4 % Normal [facility] NRBCs 0.0 /100 WBC Normal 0 [facility] Platelet mean volume (Bld) [Entitic vol] 10.1 fL Normal 9.0-12.7 [facility] Platelets (Bld) [#/Vol] 370 10*3/uL Normal 150-400 [facility] RBC (Bld) [#/Vol] 6.00 10*6/uL High 3.90-5.20 [facility] WBC (Bld) [#/Vol] 13.18 10*3/uL High 3.70-11.00 [facility] ED NOTEon 06-19-2019 ED NOTE HNO ID: [id number] Author: Yuki Mckenzie) MERA Cruz Service: ? Author Type: Registered Nurse Type: ED Notes Filed: 06/20/2019 3:27 AM Note Text: Patient has requested valium, she says that she takes it at home. Biago updated. [facility] ED NOTE HNO ID: [id number] Author: Yuki Mckenzie) MERA Cruz Service: ? Author Type: Registered Nurse Type: ED Notes Filed: 06/20/2019 3:27 AM Note Text: Patient is complaining of nausea. She is requesting her saboxon as well and Biago was updated on request. [facility] ED NOTE HNO ID: [id number] Author: Yuki Mckenzie) MERA Cruz Service: ? Author Type: Registered Nurse Type: ED Notes Filed: 06/19/2019 7:54 PM Note Text: Said that after her surgery in 2016 her left pinky and ring finger are numb but she said lately her other fingers on that hand have been getting numb as well. [facility] ED NOTE HNO ID: [id number] Author: Vanessa (Rn) MERA Ruiz Service: ? Author Type: Registered Nurse Type: ED Notes Filed: 06/19/2019 6:48 PM Note Text: Patient has chronic neck pain for three years. Saw spine doctor 06/12/2019 for the same had x rays. Denies any new injury. States pain goes into left arm. Arrived via wheelchair [facility] ED PROV NOTEon 06-19-2019 ED PROV NOTE HNO ID: [id number] Author: Tracy Arredondo Service: Emergency Medicine Author [...] light touch over bilateral lower extremities. 3/5 arson and bomb investigator, bicep, tricep strength over LUE. Decreased sensation to light touch over left upper extremity in median, radial, and ulnar nerve distribution. 5/5 arson and bomb investigator, bicep, tricep strength of R UE. Skin: [...] consult as previous notes from her oncology specialist recommend obtaining EMG and possible further [...] a neurosurgical consult she warrants transfer to [facility] for further management of her condition. We have low suspicion for stroke at this time as pain appears to be radicular in nature and she has had worsening progression of her symptoms with documented notes from spine (Dr. Álvarez) suggesting this worsening pain and numbness. The SHELLFISH DREDGE OPERATOR, Talita, at [facility] recommended we obtain a CT brain and she must rule out any acute intercranial abnormality that may be contributing to the patient's symptoms. Therefore, this study was ordered and will be followed up by the night team especially if there is any acute intracranial abnormality. As long as there is no acute intracranial abnormality she will be transferred to [facility] for further evaluation and management of her condition. Patient voiced understanding was in agreement with the above plan. This patient's case was discussed with Dr. Arredondo who personally evaluated the patient supervised her care. The patient was TRANSFERRED to: [facility] Condition at time of disposition: stable SIGNATURE: NORMA Montgomery (Pa) 06/20/19 0026 Attending Note I have personally performed a face to face assessment of the patient and have reviewed the PA/PHONE OPERATOR note. My schofield findings include: History [...] of 5 strength left upper extremities in arson and bomb investigator strength as well as biceps and triceps [...] worsening neck pain we will place her [place] observation for cardiac rule out as well [...] and requested by the observation provider at [place] as they were concerned about stroke. However I doubt this and did not feel this was necessary however it is currently pending and patient will be transferred to [place] if this is unremarkable. Signature: Tracy Arredondo DO Date: 06/20/2019 Time: 12:26 AM Tracy Arredondo 06/20/19 0033 Normal [facility] Magnesiumon 06-19-2019 Magnesium [Mass/Vol] 2.0 mg/dL Normal 1.7-2.3 [facility] Troponin Ton 06-19-2019 Troponin T.cardiac [Mass/Vol] ug/L Normal 0.000-0.029 [facility] CNOVon 06-12-2019 CNOV Office Visit (SPNMMN ) MORALES LEE ([id number]) 1975 F Date Time Provider Department 06/12/19 8:00 AM DIXIE TEE SPKSMN During your visit today, we recorded the [...] file Gets together: Not on file Attends episcopalian service: Not on file Active member of [...] healed incisions. Chest: symmetric expansion Data Review: CC records reviewed Care everywhere Lumbar CT scan-02/2019-report [...] [Z98.890] Order(s):PATIENT PLACED ON SPINE CARE PATH [5310250] Order #: [id number]: 1 XR SCOLIOSIS PA STAND/LAT 2V [0240351] Order #: [id number] FUTURE EMG(NEURO/NI) [[id number]] Order #: [id number]: 1 FUTURE CONSULT TO SPINE SURGERY [[id number]] Order #: [id number]: 1 FUTURE Prescriptions as of 06/12/2019 Sig: [...] Talita Raya Ma 06/12/2019 8:08 AM >> TALITA RAYA MA Jun 12, 2019 8:08 AM Not taking [...] Status:Closed by DIXIE TEE MD on 06/12/[address] [facility] PROGRESSon 06-12-2019 PROGRESS HNO ID: [id number] Author: Zoey Aponte (Rt) Robert Trejo Service: Radiology Author Type: Acquisitions Librarian Type: Progress Notes Filed: 06/12/2019 10:10 AM [...] RT Daxa June 12, 2019 10:[address] [facility] PROGRESS HNO ID: [id number] Author: Dixie Tee Service: ? Author Type: Physician Type: Progress Notes Filed: 06/12/2019 9:41 AM Note Text: Spine Care Path: Initial Exam CC: scoliosis, diffuse spine pain SUBJECTIVE HISTORY OF PRESENT ILLNESS: Morales Lee is a 44 year old female who presents with a chief complaint of diffuse pain and scoliosis and is seen at her request. Patient notes developed neck pain 2004-was on vicodin and then methadone. Notes developed [...] file Gets together: Not on file Attends episcopalian service: Not on file Active member of [...] foraminal or central canal stenosis. Lumbar MRI 2015-per report-no images-in care everywhere: 'There are compression [...] June 12, 2019 TIME: 8:12 AM Normal [facility] XR SCOLIOSIS 2V PA STAND/LAT on [...] changes and multilevel compression deformities as described. Manual Training Teacher: ADITYA Transcribe Date/Time: Jun 12 2019 4:36P Dictated by : CAROLINA MOJICA MD This examination was interpreted and the report reviewed and electronically signed by: CAROLINA MOJICA MD on Jun 12 2019 4:39PM EST [id number] Normal [facility] PROGRESSon 05-14-2019 PROGRESS HNO ID: [id number] Author: Laury Levin Service: ? Author Type: Physician Geographic Information Systems Director Type: Progress Notes Filed: 05/14/2019 1:26 PM [...] to rule out cubital tunnel syndrome. Normal [facility] PROGRESSon 05-09-2019 PROGRESS HNO ID: [id number] Author: Kathia Kelly Service: ? Author Type: ? Type: Progress Notes Filed: 05/14/2019 1:26 PM Note Text: Patient name: Morales Lee Are you being referred by a [facility] Provider or Pain Management Provider at [facility]? No If answer is YES please schedule directly with surgeon, triage does not need to be completed. Is this a self-referral No If not, who is the Referring Provider: Dr. Hendricks/ [facility] MRI/CT/myelogram within 12 months: Yes If No , please refer to medical spine or PCP to complete above imaging, triage does not need to be completed Imaging viewable in Epic: No If not, please provide [phone] to fax in imaging reports for review. [...] will fax imaging report and op notes. [phone] Normal [facility] CT-CT C-SPINE WO CON IMPORTo n 02-13-2019 CT-CT C-SPINE WO CON IMPORT Images were obtained outside of [facility] [id number] Normal [facility] CT-CT L-SPINE WO CON IMPORTo n 02-13-2019 CT-CT L-SPINE WO CON IMPORT Images were obtained outside of [facility] [id number] Normal [facility] Vital Signs Date Time Vital Sign Value Performing Clinician Facility 06-07-2022 12:48-0400 Diastolic blood pressure 83 mm[Hg] No Pcp Required [facility] 06-07-2022 12:48-0400 Heart rate 67 /min No Pcp Required [facility] 06-07-2022 12:48-0400 Respiratory rate 16 /min No Pcp Required [facility] 06-07-2022 12:48-0400 SaO2% (BldA) [Mass fraction] 96 % No Pcp Required [facility] 06-07-2022 12:48-0400 Systolic blood pressure 148 mm[Hg] No Pcp Required [facility] 01-06-2022 10:51-0400 Blood Pressure Location NATALIA MANNING [facility] 01-06-2022 10:51-0400 Diastolic blood pressure 86 mm[Hg] NATALIA MANNING [facility] 01-06-2022 10:51-0400 Heart rate 86 /min NATALIA MANNING [facility] 01-06-2022 10:51-0400 Respiratory rate 16 /min NATALIA MANNING [facility] 01-06-2022 10:51-0400 Systolic blood pressure 132 mm[Hg] NATALIA MANNING [facility] 09-08-2021 14:15-0500 Body height 149.86 cm No PCP None [facility] Work Phone: 09-08-2021 14:15-0500 Body mass index (BMI) [Ratio] 36.96 kg/m2 No PCP None [facility] Work Phone: 09-08-2021 14:15-0500 Body surface area Derived from formula 1.78 m2 No PCP None [facility]em[facility]c [facility] Work Phone: 09-08-2021 14:15-0500 Body weight 83.01 kg No PCP None [facility] Work Phone: 09-08-2021 14:15-0500 Diastolic blood pressure 68 mm[Hg] No PCP None [facility]Gfq[facility]idmi[facility]Td [facility] Work Phone: 09-08-2021 14:15-0500 Heart rate 96 /min No PCP None [facility] Work Phone: 09-08-2021 14:15-0500 Respiratory rate 16 /min No PCP None [facility] Work Phone: 09-08-2021 14:15-0500 Systolic blood pressure 115 mm[Hg] No PCP None IP-Pzwdratvfohs-Px [facility] Work Phone: 09-08-2021 14:15-0500 0 1 No PCP None [facility] Work Phone: Comment on above: [facility] 01-01-2021 16:46-0400 Heart rate 111 /min No Pcp Required [facility] 01-01-2021 16:46-0400 SaO2% (BldA) [Mass fraction] 95 % No Pcp Required [facility] 01-01-2021 14:00-0400 Body temperature 96.8 [degF] No Pcp Required [facility] 01-01-2021 14:00-0400 Diastolic blood pressure 77 mm[Hg] No Pcp Required [facility] 01-01-2021 14:00-0400 Respiratory rate 18 /min No Pcp Required [facility] 01-01-2021 14:00-0400 Systolic blood pressure 114 mm[Hg] No Pcp Required [facility] Encounters Encounter Date Encounter Type Care Provider Facility Start: 10-10-2023 Orders Only Shaikh Micah HARKINS Work Phone: [facility] Comment on above: Chronic low back hina n, unspecified back pain laterality, unspecified whether sciatica present (Primary Dx); Nausea in adult Start: 06-02-[address] Lex Frederick Facility:[id number] Start: 01-15-2023 End: 01-15-2023 ambulatory LALI BENITEZ Facility:[facility] Start: 01-13-2023 End: 01-13-2023 ambulatory IVON LAWS . Facility:[facility] Start: 12-31-2022 ambulatory SHAIKH MICAH Facility: [facility] Start: 12-22-2022 End: 12-22-2022 ambulatory SHAIKH Shirley OBRIEN Facility: Start: 12-08-2022 AUDIT No PCP None [facility] [address] [place] Work Phone: Start: 12-08-2022 Chart Update No PCP None [facility] [address] [place] Work Phone: Start: 11-26-2022 End: 11-27-2022 ambulatory MENODSA FAWWAD Facility:[facility] Start: 11-26-2022 End: 11-26-2022 Patient encounter procedure Danya Bingham [facility] Start: 11-22-2022 ambulatory MENDOSA H FAWWAD Facilit y:[facility]1 Start: 11-09-2022 End: 11-09-[address] DEVANTE ELIZONDO . Facility:[facility] Start: 10-22-2022 ambulatory Young Hargrove Faci lity:[facility] Start: 10-15-2022 End: 10-15-2022 ambulatory KYRA DIAB . Facility:[facility] Start: 09-24-2022 End: 09-25-2022 ambulatory MENDOSA FAWWAD [place] Start: 09-24-2022 End: 09-24-2022 Patient encounter procedure Danya Bingham [facility] Start: 09-01-2022 Encounter for preprocedural laboratory examination DANYA BINGHAM . [facility] Start: 08-25-2022 End: 08-26-2022 ambulatory MENDOSA H FAWWAD Facility:H1 Start: 08-24-2022 End: 08-25-2022 ambulatory MENDOSA H FAWWAD Facility:[facility]1 Start: 08-24-2022 End: 08-25-2022 Encounter for preprocedural laboratory examination MENDOSA H FAWWAD Facility:[facility]1 Start: 08-21-2022 ambulatory MENDOSA H FAWWAD Facilit y:H1 Start: 07-28-2022 ambulatory MENDOSA FAWWAD Facility: CD:[id number] Start: 07-16-2022 End: 07-17-2022 ambulatory MENDOSA FAWWAD Facility[place] Start: 07-16-2022 End: 07-16-2022 Patient encounter procedure Danya Bingham [facility] [place] Start: 06-06-2022 End: 06-07-2022 Emergency department patient visit Yony Aguirre [facility] Adult ED Blue 45 Start: 05-31-2022 End: 05-31-[address] ALEXANDRU SORIA . Facility:[facility]1 Start: 05-19-2022 End: 05-20-2022 ambulatory SHAIKH MICAH Facility:[facility] Start: 05-19-2022 End: 05-19-2022 Off-Site [facility] Start: 05-07-2022 End: 05-07-2022 ambulatory SHAIKH Shirley OBRIEN Facility:[facility]1 Start: 04-08-2022 End: 04-08-[address] ABHINAV WEBB Facility:[facility]1 Start: 03-30-2022 End: 03-31-[address] CLIF HUTTON Facility:[facility]1 Start: 03-07-2022 End: 03-07-[address] ABHINAV WEBB Facility:[facility]1 Start: 03-06-2022 End: 03-06-2022 ambulatory SHAIKH Shirley OBRIEN Facility:[facility]1 Start: 02-21-2022 End: 02-21-2022 ambulatory IVON LAWS . Facility:[facility]1 Start: 02-10-2022 ambulatory DANYA Rojas Facility: [facility] Start: 02-04-2022 End: 02-04-2022 Off-Site Danya Bingham [facility] [place] Start: 01-11-2022 Chart Update No PCP None MG-Neurosu [facility] [place] Work Phone: Start: 01-11-2022 End: 01-11-2022 Patient encounter procedure Danya Bingham [facility] Start: 01-07-2022 AUDIT No PCP None MG-Neurosu rgery-[facility] [place] [address] Work Phone: Start: 01-06-2022 End: 01-06-2022 Patient encounter procedure NATALIA MANNING [facility] [place] Start: 10-13-2021 AUDIT No PCP None MG-Neurosu rgery-Miguel Work Phone: Start: 09-29-2021 AUDIT No PCP None MG-Gastroe nterology-B [facility] 6 [facility] Work Phone: Start: 09-15-2021 End: 10-02-2021 Evaluation and management of inpatient Dr. LEX FREDERICK Facility:[facility] Start: 09-09-2021 AUDIT No PCP None MG-Neurosu rgery-Miguel Work Phone: Start: 09-08-2021 Office outpatient vi sit 40 minutes No PCP None UG-Fwapmazjwyyt-Tvjkc Work Phone: Start: 05-05-2021 Postop follow up vis it related to original px No PCP None DH-Pklcgfmtdzus-DNJMW Work Phone: Start: 12-26-2020 End: 01-01-2021 Evaluation and management of inpatient Lex Frederick [facility] [id number] Rm [id number] Preoperative state No PCP None MG-Neuros urgery-[facility] Work Phone: Procedures Date Procedure Procedure Detail Performing Clinician Start: 09-21-[address] EFRAIN FREDERICK Comment on above: Performed By: #### A FPA3 #### [facility] [address] [place] [address] Start: 09-21-[address] EFRAIN FREDERICK Comment on above: Order Comment: VENECIA ESPINO, 09/21/2021 05:08TEST TYPE + SCREEN WAS CANCELLED, 09/21/2021 05:06 NO PHLEB ID ON TUBE. Result Comment: CALL ED RN AFSANEH ESPINO, 09/21/2021 05:08 Performed By: #### A FPA3 #### [facility] [address] [place] [address] Start: 09-17-[address] EFRAIN FREDERICK Comment on above: Performed By: #### T +S #### [facility] [address] [place] [address] Start: 12-27-2020 End: 12-28-2020 Release Blood Product-Packed Red Blood Cells Devante Defta Start: 12-26-2020 Renal function 2000 panel - Serum or Plasma Nabil Awan Appendectomy NATALIAYOVANY MANNING Cholecystectomy NATALIA PER TRISH Hernia NATALIA NIGEL Hysterectomy NATALIAYOVANY MANNING mylogr NATALIA NIGEL Plan of Treatment Date Care Activity Detail Author Start: 10-17-2023 End: 10-17-2023 Patient encounter procedure 10/17/2023 6:30 PM EST Office Visit [facility] [address] [place] [id number] Shaikh Obrien MD [address] [place] [address] [facility] Start: 05-06-2023 Influenza vaccination Influenza Vacc ine (#1) [facility] Start: 11-03-2021 POV, Provider: Lex Frederick, Status: Pen, Time: 2:00 PM POV, Provider: Lex Frederick, Status: Pen, Time: 2:00 PM QX-Vlanuneclafeyqxx-Zo lwell 6 [facility] Work Phone: Start: 10-07-2021 Admission to [facility] RNSTEPHANIEIT, Provider: NURSE VISIT [facility] 5[facility],MGNEUROSURGERY, Status: Pen, Time: 10:15 AM AP-Cgrvmkvdwhkvknfw-Pq lwell 6 [facility] Work Phone: Start: 09-18-2021 [facility]: Lex Frederick, Status: Pen, Time: 8:00 AM [facility] Provider: Lex Frederick, Status: Pen, Time: 8:00 AM FP-Ckymnwkubhpi-Lmfyn Work Phone: Start: 01-08-2021 Patient encounter procedure Neurosurgery Miguel Start: 12-31-2020 End: 01-01-2022 [facility] Comment on above: please place at beds geraldine for drain removal Start: 12-26-2020 End: 12-27-2021 Naloxone Injectable 0.4 mg IntraVenous Push Once ; (NARCAN)DOSE = 0.2 mg IntraVenous Push Once, PRN patient is unarousable, and respiratory rate lessClinician Notes: HOLD OIL AND GAS RECRUITER Infusion and notify H.O. immediately Start: 26-Dec-2020 End: 26-Dec-2021 Ordered: 26-Dec-2020 Nabil Awan Intent Comments: HOLD OIL AND GAS RECRUITER Infusion and notify H.O. immediately [facility] Comment on above: HOLD OIL AND GAS RECRUITER Infusion an d notify H.O. immediately Start: 2013 Screening for malignant neoplasm of breast Mammogram [facility] Start: 2003 Screening for malignant neoplasm of cervix [facility] Start: 1994 Screening for malignant neoplasm of cervix Pap Smear [facility] Start: 1973 Screening for malignant neoplasm of colon [facility] Immunizations Immunization Date Immunization Notes Care Provider Delfino chu 02-22-2020 tetanus toxoid, redu luis diphtheria toxoid, and acellular pertussis vaccine, adsorbed Danya Bingham [facility] 12-05-2018 hepatitis A vaccine, adult dosage Danya Bingham [facility] Payers Date Payer Category Payer Unknown 1973 Unknown [id number] 2.16. [id number] 1973 Unknown [id number] 2.16. 840.1.931356.3.579.2.356 1973 Unknown [id number] 2.16.84 0.1.441338.3.579.2.593 1973 Unknown [id number] 2.16.84 0.1.618151.3.579.2.593 1973 Unknown [id number] 2.16.84 0.1.418367.3.579.2.593 1973 Unknown [id number] 2.16.84 0.1.010120.3.579.2.593 1973 Unknown [id number] 2.16.84 0.1.651275.3.579.2.593 1973 Unknown [id number] 2.16.84 0.1.571691.3.579.2.593 1973 Unknown [id number] 2.16.84 0.1.951216.3.579.2.593 1973 Unknown [id number] 2.16.84 0.1.406040.3.579.2.593 1973 Unknown [id number] 2.16.84 0.1.259224.3.579.2.593 1973 Unknown [id number] 2.16.84 0.1.414546.3.579.2.593 1973 Unknown [id number] 2.16.84 0.1.255392.3.579.2.593 1973 Unknown [id number] 2.16.84 0.1.266067.3.579.2.593 1973 Unknown [id number] 2.16.84 0.1.567786.3.579.2.593 1973 Unknown [id number] 2.16.84 0.1.452793.3.579.2.593 1973 Unknown [id number] 2.16.84 0.1.481571.3.579.2.593 1973 Unknown [id number] 2.16.84 0.1.020312.3.579.2.593 1973 Unknown [id number] 2.16.84 0.1.311670.3.579.2.593 1973 Unknown [id number] 2.16.8 40.1.157610.3.579.2.727 1973 Unknown [id number] 2.16.8 40.1.238919.3.579.2.727 1973 Unknown [id number] 2.16.8 40.1.837140.3.579.2.727 1973 Unknown [id number] 2.16.8 40.1.180549.3.579.2.727 1973 Unknown [id number] 2.16.8 40.1.363563.3.579.2.727 1973 Unknown [id number] 2.16.8 40.1.516757.3.579.2.727 1973 Unknown [id number] 2.16.8 40.1.264337.3.579.2.727 1973 Unknown [id number] 2.16.8 40.1.065010.3.579.2.1046 1959 Unknown [id number] Social History Date Type Detail Facility [facility] Tobacco smoking consumption unknown [facility] Start: 08-01-2023 End: 08-08-2023 History of drug use History of drug use JY-Arijnzrrniur-OYJY C Work Phone: Start: 01-05-2016 End: 08-01-2023 Tobacco smoking status Smokes tobacco daily (finding) [facility] Comment on above: 1ppd 1ppd Start: 08-08-2023 Sex Assigned At Female [facility] History of tobacco use Cigarette Smoker [facility] Start: 08-08-2023 Alcohol intake Lifetime non-d prasanna (finding) [facility] Start: 1975 Sex Assigned At Not on file N [facility] Medical Equipment Procedure Code Equipment Code Equipment Origin al Text Equipment Identifier Dates 2 EA, SubLingual , Daily, Refill(s) 0 Start: 01-05-2016 2 EA, SubLingual , Daily, Refill(s) 0 Start: 01-05-2016 2 EA, SubLingual , Daily, Refill(s) 0 Start: 01-05-2016 Functional Status Date Assessment Result Facility 11-26-2022 Functional Status N/A [facility] 07-16-2022 Functional Status N/A [facility] Functional observable [facility] Mental Status Date Assessment Result Facility 12-29-2020 Cognitive functi ons [id number] [facility] Clinical Notes 12-26-2020 to 11-26-2022 Note Date [...] 12/14/2019 Document Reviewed: 10/01/2017 Elsevier Patient Education 2020 [employer] Follow Up Care 10/14/2022 11:11:52 With:Zachery HARKINS, CAROLEE Anderson, URO Address: When: Unknown [facility] 09-23-2022 Hospital Discharg e instructions Patient Education [...] including vitamins, herbs, eye drops, creams, and wuje-zxt-ktgzgsz medicines. Any problems you or family members [...] provider tells you to take them. Taking itnt-iul-pbqdtck medicines, vitamins, herbs, and supplements. General instructions [...] 08/08/2013 Document Revised: 10/08/2019 Document Reviewed: 10/08/2019 [employer] Patient Education 2019 [employer]. Follow Up Care 08/31/2022 10:49:10 With:Zachery HARKINS, CAROLEE Anderson, URO Address: When: Unknown [facility] [place] 07-16-2022 Hospital Discharg e instructions Patient Education [...] nerve stimulation). For women, using a medical interpreter to prevent urine leaks. This is a [...] right after experiencing incontinence. General instructions Take aeli-ztl-skovzww and prescription medicines only as told by [...] 09/29/2005 Document Revised: 09/01/2018 Document Reviewed: 12/01/2017 [employer] Patient Education 2019 [employer]. Follow Up Care 06/15/2022 11:30:52 With:Danya Bingham MD, URL, URO Address: When: Unknown [facility] [place] 02-04-2022 Hospital Discharg e instructions Patient Education [...] nerve stimulation). For women, using a medical interpreter to prevent urine leaks. This is a [...] right after experiencing incontinence. General instructions Take csgs-ixo-uqeohwp and prescription medicines only as told by [...] 09/29/2005 Document Revised: 09/01/2018 Document Reviewed: 12/01/2017 [employer] Patient Education 2020 [employer]. 02/04/2022 16:23:10 Calorie Counting for Weight Loss [...] 08/22/2006 Document Revised: 05/11/2019 Document Reviewed: 07/22/2017 [employer] Patient Education 2019 [employer]. Follow Up Care 02/04/2022 13:28:46 With:Danya Bingham MD, URL, URO Address: When: Unknown [facility] 01-11-2022 Evaluation + Plan note Extrac alexander [...] and Plan Diagnosis Bowel and bladder incontinence (BBB60-SM R32, Billing Diagnosis, Medical). Incontinence without sensory awareness (RIE14-SU N39.42, Working, Medical). Diagnosis Bowel and bladder incontinence (ODM90-OO R32, Billing Diagnosis, Medical). Incontinence without sensory awareness (SOR97-PC N39.42, Working, Medical). Addendum by Danya Bingham MD on January 11, 2022 10:23 EDT Post procedure diagnosis: Intrinsic sphincter deficiency, acontractile detrusor [facility]05-09-2022 Hospital Discharge instructions Patient Education 01/11/2022 [...] Up Care 01/06/2022 11:41:34 With:Danya Bingham Address: [address] [phone] Business (1) When: Unknown Comments:Call for followup appointment in 2-3 weeks With:Danya Bingham Address:Unknown When: Unknown [facility]05-04-2022 Hospital Discharge instructions Patient Education 01/06/2022 [...] program. Other places that provide vaccinations include: [facility] health clinics. Check with your local health department. [facility], where you would pay only what you can afford. To find one near you, check this website: [email or web address]/gsof-[email or web address]-[email or web address]/ [facility]. These are part of a program for [...] information Learn more about cervical cancer from: [employer]: www.acog.org/Patients/FAQs/Cervical-Cancer [employer]: www.cancer.org/cancer/cervicalcancer/ U.S. Centers for Disease [...] 09/05/2016 Document Revised: 09/23/2018 Document Reviewed: 04/19/2017 [employer] Patient Education 2020 [employer] Follow Up Care 11/20/2021 10:16:51 With:NATALIA MANNING PA-C, URL Address: [address] [place] [address] When:01/13/2022 [facility] 01-28-2022 NoteSend Summary: Discharge Summary Providers: Provider RoleProvider Name AttendingLex Frederick Note Recipients: Lex Frederick MD Discharge: Summary: [...] Care - New Vital Signs: T PRBPSpO2 [id number]/6394% Date/Time10/02 8: 8: 8: 8: 8:00 Range(36.1C [...] placement 09/23 Patient transitioned from post op OIL AND GAS RECRUITER to oral pain regimen 09/24 Fitted for [...] discharge; ok for danya to be removed 2/2. PT/OT evaluated. Patient was discharged to home [...] or twist. Instead, bend at knees to cloth picker objects (more content not included)...[facility]01-26-2022 NoteThis report has been cancelled.[facility]01-17-2022 NotePROCEDURE DETAILS Postoperative Diagnosis: lumbar stenosis Surgeon: Dr. Lex Frederick Resident/Fellow/Other Geographic Information Systems Director: Chery Awan Procedure: posterior L4-L5 decompression posterior [...] Completion Last Updated: 22-Sep-2021 10:54 by Lex Frederick)[facility]01-17-2022 NoteHistory & Physical Reviewed: /Lactating: Are You [...] the note. I personally evaluated the patient [id number] Electronic Signatures: Lex Frederick) (Signed 21-Sep-2021 11:50) Authored: Note Completion Co-Signer: History & Physical Reviewed, ERAS, Consent, Note Completion Jaya Mosquera (Resident)) (Signed 21-Sep-2021 02:51) Authored: History & Physical Reviewed, ERAS, Consent, Note Completion Last Updated: 21-Sep-2021 11:50 by Lex Frederick) References: 1. Data Referenced From MRI Safety Screen v2 19-Sep-2021 19:00[facility]01-15-2022 NoteRehab: Info: Mode of Treatmentoccupational therapy; attempted; OT evaluation initiated with home set-up obtained (1st floor set up/ 0 step entry, lives with , tub shower with chair); Pt with low BP upon arrival 79/54. Second BP reading taken at 71/51. RN notified, further evaluation deferred at this time. OT to reattempt when pt medically appropriate. 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 Exploration of spinal [...] performed and the images transferred to the [employer] system for use in intraoperative image-guided computer-assisted [...] using the torque dri (more content not included)...[facility]01-14-2022 NoteThis report has been cancelled.[facility]01-14-2022 NoteHistory & Physical Reviewed: /Lactating: Are You [...] the note. I personally evaluated the patient [id number] Electronic Signatures: Fidel Maciel (Resident)) (Signed 17-Sep-2021 22:49) Authored: History & Physical Reviewed, ERAS, Consent, Note Completion Lex Frederick) (Signed 19-Sep-2021 10:17) Authored: Note Completion Co-Signer: History & Physical Reviewed, ERAS, Consent, Note Completion Last Updated: 19-Sep-2021 10:17 by Lex Frederick) References: 1. Data Referenced From MRI Safety Screen v2 17-Sep-2021 11:28[facility]01-11-2022 NoteReferral Information: Consult requested by (Attending Name): [...] be able to m (more content not included)...[facility]01-11-2022 NoteHistory of Present Illness: /Lactating: Are You [...] the note. I personally evaluated the patient [id number] Electronic Signatures: Fidel Maciel (Resident)) (Signed 15-Sep-2021 [...] Plan Last Updated: 16-Sep-2021 10:20 by Lex Frederick)[facility]04-23-2021 History of Present illness Narrative* I just had the pleasure of seeing Mrs. Jesus villarreal in the Neurosurgery Spine Clinic at the [facility]. She is a very pleasant 46-year-old [...] was a pleasure to participate in Ms. JESUS hollis. * Lex Frederick MD, [facility], [facility] * Director - Minimally Invasive Spine Surgery * [facility] * Tower Switch Operator of Neurological Surgery * [facility] [employer] * [place], [place] * Some of this note was completed using [employer] voice recognition technology and sometimes the software misinterprets words. This may include unintended errors with respect to translation of words, typographical errors or grammar errors which may not have been identified prior to finalization of the chart note. Please take this into account when reading this note. BZ-Vvpusjfkdcwn-Ouxie Work Phone: [phone]) 173-264304-23-2021 Reason for referral (narrative)* Reason for Referral: Patient s/p posterior bilateral L1 transpedicular decompression, posterior T7-T8, T8-T9, T9-T10, T0-T11, T11-T12, T12-L1 hutton hernandez osteotomies, Posterior T5-L4 instrumentation and fusion on 12/26 [facility] Future Appointments Appointment Date:01/07/2022 11:00:00 AM Scheduled Provider: Location:[facility] Appointment Type:Urology CALL PAT FT Appointment Date:01/11/2022 08:00:00 AM Scheduled Provider: Location:[facility] Appointment Type:Urology FT Appointment Date:01/11/2022 09:00:00 AM Scheduled Provider: Location:[facility] Appointment Type:Urology FT [facility] evaluation + [facility] note* Neurological: ooelvjh4uwq 5/5 except hg/io4+ble 5/5incision cdiHead/Neck: Ox3, awake, alertBUE 5 prox, HG/IO4+BLE HF/KE/DF/PF/EHL 5 [facility]* Constitutional: in no acute distressSkin: Well perfusedEyes: OU 3RHead/Neck: atraumatic, normocephal icRespiratory/Thorax: airway intact, good chest expansionCardiovascular: normal rate, regular rhythmGastrointestinal: non-tenderNeurological: NAD, A&Xn1Flyimak Nerves II-XII: PERRL, EOMI, Face symmetric, Facial SILT, Palate/Tongue midline and symmetric, shoulder shrugs symmetric, hearing intact to finger rubs bilaterallyMotor: RUE D5, B5, T5, HG5, IO5LUE D5, B5, T5, HG5, IO5RLE HF 4+, KE4+, PF4-, DF3LLE HF 4+, KE4+, PF3, DF4-Sensation: SILT throughout all extremitiesPsychological: mood appropriate [facility]* Diagnosis Chronic low back pain, unspecified back pain laterality, unspecified whether sciatica present- Primary Nausea in adult documented in [facility] N[facility]ative No data available for this section [facility] [place] [facility] Discharge instructions* Activity:activity as tolerated. May [...] Certification:Home Care Services Needed: yesSkilled Disciplines Ordered: RN/STRUCTURAL STEEL ENGINEER, PT, OTFace to Face Encounter Completed: yesDate of Encounter: [id number] Necessity for Homecare (based on clinical findings): [...] washing dishes, & loading the dryer or broth setter until cleared by MD. * Wound Care:Inspect [...] legs and/or calves. * Follow-Up - Neurosurgeon:Physician/Dept/Service: NeurosurgeonDr Josephuled Date/Time: 08-Jan-2021 10:40Location: [facility], [facility] [address] [place], [place] Number: [phone]: 2 week postop/wound check visit; Bring Insurance Card and Photo ID [facility] No data available for this section [facility] progress note No data available for this section [facility] reason for referral (narrative) , urinary incontinence, neurogenic bladder, open bladder neck, possible SP tube placement Referred by: Zachery HARKINS, Danya Rhodes [facility] Summary Purpose Family History Unknown Family Member Name Dates Details Medical [...] section and content) DATE CREATED AUTHOR 06/20/2019 [facility] DATE CREATED AUTHOR AUTHOR'S ORGANIZ ATION 06/20/2019 [facility] DATE CREATED AUTHOR AUTHOR'S ORGANIZ ATION 07/26/2019 [facility] DATE CREATED AUTHOR AUTHOR'S ORGANIZ ATION 12/29/2020 [facility] DATE CREATED AUTHOR AUTHOR'S ORGANIZ ATION 09/16/2021 [employer] DATE CREATED AUTHOR AUTHOR'S ORGANIZ ATION 11/25/2021 [facility] DATE CREATED AUTHOR AUTHOR'S ORGANIZ ATION 12/10/2021 [facility] DATE CREATED AUTHOR AUTHOR'S ORGANIZ ATION 08/06/2022 [facility] DATE CREATED AUTHOR AUTHOR'S ORGANIZ ATION 01/17/2023 [facility] DATE CREATED AUTHOR AUTHOR'S ORGANIZ ATION 03/13/2023 Eugenio Martinez [facility] DATE CREATED AUTHOR AUTHOR'S ORGANIZ ATION 06/09/2023 [facility] <item><item> Privacy Markings (unrecogniz ed section and [...] Care Team (unrecognized sect ion and content) Rigger Supervisor Relationship Specialty Start Date End Date Shaikh Obrien MD PCP - General Internal Medicine 08/05/23 FOR RECORDS PERTAINING TO PATIENTS WHO ARE [...] BE BASED ON THE PRIMARY CLINICAL RECORDS. [employer] provides no warranty or guarantee of the accuracy or completeness of information in this document.
--- NOTE | 2023-10-19 18:41 | PC.NURSE ---
Pt here as catheter has fell out. Catheter replaced with a 18 f catheter . 20 mls placed in balloon as instructed. Pt tolerated procedure well. Catheter draining clear yellow urine.
== END 2023-10-19 18:50 | disposition home or self-care (01) ==
PROVIDERS: Emergency Provider Emergency Medicine; PCP Internal Medicine
DX: Z46.6 Encounter for fitting and adjustment of urinary device (principal); Z79.899 Other long term (current) drug therapy; F17.210 Nicotine dependence, cigarettes, uncomplicated
CPT/HCPCS: 51702; 99284

== ENCOUNTER 2023-11-21 08:39 | Emergency (ER) | payer BC, SELFPAY ==
[2023-11-21] VITALS (38 sets, daily range): BP systolic 127–210; BP diastolic 75–139; PULSE 81–96; RESP 18–118; TEMP 36.5; O2SAT 87–99; BMI 29.5
--- OUTSIDE RECORDS SUMMARY | 2023-11-21 09:15 | XMS_ITS | CCD ---
Author Name Unknown Address [address] [place] [address] Organization [facility] Care Team Providers Care Engineer Technical Staff Name Role Phone Required, No Pcp Unavailable Unavailable Lex Frederick Unavailable None, No PCP Unavailable Unavailable Unavailable Unavailable SHAIKH OBRIEN Primary Care Physician [phone] Yony Aguirre Unavailable Unavailable Neurosurgery Unavailable Unavailable Dr. LEX FREDERICK Admitting Unava ilable Dr. LEX FREDERICK Attending Unava ilable Patient, Unavailable Referring Unavailable Dr. Yony Aguirre Attending Unavailable FAWWAD, MENDOSA H Primary Care Unavailable PÉREZ PATINO Attending Unavailable PÉREZ PATINO Admitting Unavailable JON, DR ABHINAV Livingston Attending Unavailabl e FAWWAD, MENDOSA H Primary [...] JON, DR ABHINAV Livingston Attending [facility] Unavailable REINECK, DR ABHINAV Livingston Admitting Unavailabl e REINECK, DR ABHINAV Livingston Consulting Unavailabl e VETO ., IVON Admitting Unavailable VETO ., IVON Attending Unavailable [facility] Primary Care Unavailable PATRICK, DEBORAH Aponte Consulting Unavailable [facility] Primary Care Unavailable REINMAXINE, DR ABHINAV Livingston Admitting Unavailabl e REINECK, DR ABHINAV Livingston Consulting Unavailabl e REINECK, DR ABHINAV Livingston Attending Unavailabl e HAY ., DR LOW Admitting Unavailable [facility] Primary Care Unavailable HAY ., DR LOW Attending Unavailable ZIEBER, DR ENRIQUE Santana Consulting Unavailable HAY ., DR LOW Consulting Unavailable LUE ., DANYA M Admitting Unavailable LUE ., DANYA M Attending Unavailable [facility] Primary Care Unavailable [facility] Primary Care Unavailable LUE ., DANYA M Admitting Unavailable LUE ., DANYA M Consulting Unavailable LUE ., DANYA M Attending Unavailable CANDICE MATTA Consulting Unava ilable RACHEL CORREA Consulting Unavailable DIAB ., KYRA Admitting Unavailable [facility] Primary Care Unavailable DIAB ., KYRA Attending Unavailable GRECHNY ., BONITA HULL Consulting Unavailabl e [facility] Primary Care Unavailable LUE ., DANYA M Admitting Unavailable LUE ., DANYA M Consulting Unavailable LUE ., DANYA M Attending Unavailable PAY ., DR RODRIGUEZ Admitting Unavailable PAY ., DR RODRIGUEZ Consulting Unavailable [facility] Primary Care Unavailable PAY ., DR RODRIGUEZ Attending Unavailable [facility] Primary Care Unavailable JON, DR ABHINAV Livingston Admitting Unavailabl e JON, DR ABHINAV Livingston Consulting Unavailabl e JON, DR ABHINAV Livingston Attending Unavailabl e KORIN STANLEY Consulting Unavailable [facility] Primary Care Unavailable Lue, Danya M. Attending Unavailable [facility] Primary Care Unavailable Lue, Danya M. Attending Unavailable [facility] Primary Care Unavailable Lue, Danya M. Attending Unavailable [facility] Care Unavailable Danya Bingham Attending Unavailable MICAH [facility] Unavailable Danya Bingham Attending Unavailable MICAH [facility] Unavailable Danya Bingham Attending Unavailable MICAH [facility] Unavailable Danya Bingham Attending Unavailable Young Hargrove Attending Unavailable MICAH [facility] Primary [facility] Unavailable Dr. Lex Frederick Attending [facility] Provider Allergies Allergy Classification Reported Allergen(s) Allergy Type Date of Onset Reaction(s) Facility Opioid Agonists (1 source) Codeine Drug Allergy Unknown [facility] Penicillins (antibiotic) (1 source) Penicillin Drug Allergy Unknown [facility] QUEtiapine (1 source) QUEtiapine Drug Allergy Unknown [facility] (20 sources) Codeine; Translations: [Codeine] Drug Allergy 3 [facility] (20 sources) Penicillins; Translations: [Penicillins] Allergy to drug (finding) Hives, Unknown [facility] Work Phone: (8 sources) Promethazine; Translations: [promethazine] Drug Allergy [facility] (1 source) QUEtiapine Drug Allergy Seizures [facility] (2 sources) Codeine Drug Allergy 3 [facility] Repository (3 sources) gabapentin; Translations: [Neurontin] Drug Allergy [facility] (1 source) Levamisole Drug Allergy [facility] (1 source) Morphine Drug Allergy 0 [facility] (2 sources) Penicillins Drug allergy (disorder) 3 [facility] (1 source) QUEtiapine Drug Allergy 3 [facility] (1 source) Penicillins Drug Allergy 3 Hives, GI intolerance [facility] (1 source) QUEtiapine Drug Allergy 3 Unknown [...] q12hr, # 2 cap(s), Refills(s) 0, [id number], 156, cm, 07/16/22 10:58:00 EST, Height/Length Dosing, [...] day(s), # 2 tab(s), Refills(s) 0, Pharmacy: [address], 156, cm, 01/06/22 10:53:00 EDT, Height/Length [...] oral Quantity: 0 Refills: 0 Ordered: 05-Dec-2020 Caorle Mcdaniel Status: Discontinued Generic Substitution Allowed docusate sodium 50 mg / sennosides, [facility] living 8.6 mg oral tablet (2 sources) Start: [...] 09-30-2021 take 1 capsule by mo [facility] once daily DULoxetine 30 mg oral delayed [...] Active take 2 tablets by mo [facility] once daily as needed furosemide 20 mg oral tablet ; 2 tab(s) orally once a day, As Needed Quantity: 0 Refills: 0 Ordered: 15-Sep-2021 Enrique Egan Generic Substitution Allowed take 1 tablet by [facility] once daily as needed furosemide 20 mg [...] prn Quantity: 0 Refills: 0 Ordered: 05-Dec-2020 aCrole Mcdaniel Status: Discontinued Generic Substitution Allowed 24 hr mirabegron 50 mg extended release oral tablet (4 sources) beta3-Adrenergic Agonist Start: 02-25-2022 take 1 tablet by mouth once daily mirabegron 50 mg oral tablet, extended release 50 mg = 1 tab(s), Oral, Daily, # 30 tab(s), Refills(s) 3, [facility]: [facility] [facility], 156, cm, 02/04/22 15:47:00 EDT, Height/Length Dosing, 78, kg, 02/04/22 15:47:00 EDT, Weight Dosing Start Date: 02/25/22 Status: Ordered nystatin 100 unt/mg topical powder (1 source) Polyene Antifungal Start: 03-07-2023 Nyamyc 119373 UNIT/GM powder Apply 1 application topically in [...] 30 tab(s), Refills(s) 11, [facility]: [facility] #[id number], 156, cm, 07/16/22 10:58:00 EST, Height/Length Dosing, 78, kg, 07/16/22 10:58:00 EST, Weight Dosing Start Date: 10/04/22 Status: Ordered Start: 07-16-2022 take 1 tablet by marlen once daily oxybutynin 10 mg ER Tab 10 mg = 1 tab(s), Oral, Daily, # 30 tab(s), Refills(s) 11, [facility]acy: [facility] #[id number], 156, cm, 07/16/22 10:58:00 EST, Height/Length Dosing, 78, kg, 07/16/22 10:58:00 EST, Weight Dosing Start Date: 07/16/22 Status: Ordered Start: 03-10-2022 take 1 tablet by [facility] once daily oxybutynin 10 mg ER Tab 10 mg = 1 tab(s), Oral, Daily, # 30 tab(s), Refills(s) 3, [facility] [facility], 156, cm, 02/04/22 15:47:00 EDT, [...] 07-Jan-2021 Generic Substitution Allowed polyethylene glycol 3350 13405 mg powder for oral solution (2 sources) [...] Daily, # 30 cap(s), Refills(s) 0, [facility] [address], 156, cm, 01/07/22 13:43:00 EDT, Height/Length [...] food., # 2 cap(s), Refills(s) 0, Pharmacy: [facility] #[id number], 156, cm, 11/26/22 8:15:00 EDT, Height/Length Dosing, [...] Discontinued Generic Substitution Allowed polyethylene glycol 3350 886274 mg / potassium chloride 2970 mg / sodium bicarbonate 6740 mg / sodium chloride 5860 mg / sodium sulfate 18560 mg powder for oral solution (8 sources) [...] spine] Episodic Other aftercare (2 sources) Other terminal operator (current) drug therapy; Translations: [Other terminal operator (current) drug therapy] Onset: 06-07-2022 Episodic Other [...] Range Facility ED Note-Physicianon 03-14-20 ED Note-Physician [id number]#[id number]:127 [facility] ED Note-Physicianon 01-23-20 ED Note-Physician [id number]#1.00CD:127 [facility] ED Note-Physician [id number]#1.00CD:127 [facility] Lab Reportson 01-22-2023 Lab Reports [id number]#1.00CD:[address] [facility] Patient Correspondenceon Patient Correspondence [id number]#[id number]:[address] [facility] CULTURE URINEon 01-16-2023 CULTURE URINE Isolate 1 [...] R F Nitrofurantoin <=16 S F Normal [facility] Comment on above: Performed By: #### U MICRO, ERUR #### [facility] [address] [place] [address] Dr. Alfredo Lizama CBC AUTO DIFFon 01-13-2023 BASO # 0.1 103/ul Normal 0.0-0.1 [facility] Comment on above: Performed By: #### U MICRO, ERUR #### [facility] [address] [address] [address] Alfredo Lizama Basophils/100 WBC (Bld) 0.7 % Normal 0.2-2.0 [facility] Comment on above: Performed By: #### U MICRO, ERUR #### [facility] [address] [address] [address] Alfredo Lizama EO # 0.3 103/ul Normal 0.0-0.7 [facility] Comment on above: Performed By: #### U MICRO, ERUR #### [facility] [address] [place] [address] Dr. Alfredo Lizama Eosinophils/100 WBC (Bld) 3.2 % Normal 0.9-7.0 [facility] Comment on above: Performed By: #### U MICRO, ERUR #### [facility] [address] [place] [address] Dr. Alfredo Lizama Erythrocyte distribution width (RBC) [Ratio] 13.0 % Normal 11.0-15.0 [facility] Comment on above: Performed By: #### U MICRO, ERUR #### [facility] [address] [place] [address] Dr. Alfredo Lizama Hematocrit (Bld) [Volume fraction] 43.2 % Normal 36.0-48.0 [facility] Comment on above: Performed By: #### U MICRO, ERUR #### [facility] [address] [place] [address] Dr. Alfredo Lizama Hemoglobin (Bld) [Mass/Vol] 14.1 g/dL Normal 12.0-16.0 [facility] Comment on above: Performed By: #### U MICRO, ERUR #### [facility] [address] [place] [address] Dr. Alfredo Lizama IG # 0.02 10e3/ul Normal 0.00-0.03 [facility] Comment on above: Performed By: #### U MICRO, ERUR #### [facility] [address] [place] [address] Dr. Alfredo Lizama IG % 0.2 % Normal 0.0-0.5 [facility] Comment on above: Performed By: #### U MICRO, ERUR #### [facility] [address] [place] [address] Dr. Alfredo Lizama LYMPH # 3.0 103/ul Normal 1.2-3.8 [facility] Comment on above: Performed By: #### U MICRO, ERUR #### [facility] [address] [place] [address] Dr. Alfredo Lizama Lymphocytes/100 WBC (Bld) 35.6 % Normal 20.5-60.0 [facility] Comment on above: Performed By: #### U MICRO, ERUR #### [facility] [address] [place] [address] Dr. Alfredo Lizama MANUAL DIFF REQ NO Normal [facility] Comment on above: Performed By: #### U MICRO, ERUR #### [facility] [address] [place] [address] Dr. Alfredo Lizama MCH (RBC) [Entitic mass] 29.4 pg Normal 26.7-34.0 [facility] Comment on above: Performed By: #### U MICRO, ERUR #### [facility] [address] [place] [address] Dr. Alfredo Lizama MCHC (RBC) [Mass/Vol] 32.6 g/dL Normal 29.9-35.2 [facility] Comment on above: Performed By: #### U MICRO, ERUR #### [facility] [address] [place] [address] Dr. Alfredo Lizama MCV (RBC) [Entitic vol] 90.0 fL Normal 81.0-99.0 [facility] Comment on above: Performed By: #### U MICRO, ERUR #### [facility] [address] [place] [address] Dr. Alfredo Lizama MONO # 0.4 103/ul Normal 0.3-0.8 [facility] Comment on above: Performed By: #### U MICRO, ERUR #### [facility] [address] [place] [address] Dr. Alfredo Lizama Monocytes/100 WBC (Bld) 4.8 % Normal 1.7-12.0 [facility] Comment on above: Performed By: #### U MICRO, ERUR #### [facility] [address] [place] [address] Dr. Alfredo Lizama NEUT # 4.7 103/ul Normal 1.4-6.5 [facility] Comment on above: Performed By: #### U MICRO, ERUR #### [facility] [address] [place] [address] Dr. Alfredo Lizama Neutrophils/100 WBC (Bld) 55.5 % Normal 43.0-75.0 [facility] Comment on above: Performed By: #### U MICRO, ERUR #### [facility] [address] [place] [address] Dr. Alfredo Lizama Platelet mean volume (Bld) [Entitic vol] 9.5 fL Normal 9.5-13.5 [facility] Comment on above: Performed By: #### U MICRO, ERUR #### [facility] [address] [place] [address] Dr. Alfredo Lizama PLT 267 103/ul Normal 150-450 [facility] Comment on above: Performed By: #### U MICRO, ERUR #### [facility] [address] [place] [address] Dr. Alfredo Lizama RBC 4.80 106/ul Normal 4.20-5.40 [facility] Comment on above: Performed By: #### U MICRO, ERUR #### [facility] [address] [place] [address] Dr. Alfredo Lizama WBC 8.5 103/ul Normal 4.0-11.0 [facility] Comment on above: Performed By: #### U MICRO, ERUR #### [facility] [address] [place] [address] Dr. Alfredo Lizama ER URINE PROFILEon 3 Bilirubin Ql (U) Negative Normal NEGATIVE [facility] Comment on above: Performed By: #### Jacque ESTRADA UMICRO #### [facility] [address] [place] [address] Dr. Alfredo Lizama Clarity (U) CLOUDY Abnormal CLEAR [facility] Comment on above: Performed By: #### Jacque ESTRADA UMICRO #### [facility] [address] [place] [address] Dr. Alfredo Lizama Color (U) YELLOW Normal YELLOW [facility] Comment on above: Performed By: #### Jacque ESTRADA UMICRO #### [facility] [address] [place] [address] Dr. Alfredo LÓPEZD A micrscopic examina tion will be performed if indicated. Normal [facility] Comment on above: Performed By: #### Jacque ESTRADA UMICRO #### [facility] [address] [place] [address] Dr. Alfredo Lizama Glucose Ql (U) Negative Normal NEGATIVE [facility] Comment on above: Performed By: #### Jacque ESTRADA UMICRO #### [facility] [address] [place] [address] Dr. Alfredo Lizama Hemoglobin Ql (U) MODERATE Abnormal NEGATIVE [facility] Comment on above: Performed By: #### E RUR, UMICRO #### [facility] [address] [place] [address] Dr. Alfredo Lizama Ketones Ql (U) TRACE Abnormal NEGATIVE [facility] Comment on above: Performed By: #### E RUR, UMICRO #### [facility] [address] [place] [address] Dr. Alfredo Lizama LEUKOCYTES SMALL Abnormal NEGATIVE [facility] Comment on above: Performed By: #### E LONAR, UMICRO #### [facility] [address] [place] [address] Dr. Alfredo Lizama Nitrite Ql (U) Negative Normal NEGATIVE [facility] Comment on above: Performed By: #### E SEAN, UMICRO #### [facility] [address] [place] [address] Dr. Alfredo Lizama pH (U) 8.0 [pH] Normal 5-9 [facility] Comment on above: Performed By: #### Jacque ESTRADA, UMICRO #### [facility] [address] [place] [address] Dr. Alfredo Lizama Protein (U) [Mass/Vol] 100 mg/dL Abnormal NEGATIVE/ TRACE [facility] Comment on above: Performed By: #### Jacque ESTRADA, UMICRO #### [facility] [address] [place] [address] Dr. Alfredo Lizama SPEC GRAVITY 1.015 Normal 1.005-<=1.0 25 [facility] Comment on above: Performed By: #### E SEAN, UMICRO #### [facility] [address] [place] [address] Dr. Alfredo Lizama UR MICRO IND INDICATED Normal [facility] Comment on above: Performed By: #### E SEAN, UMICRO #### [facility] [address] [place] [address] Dr. Alfredo Lizama Urobilinogen Qn (U) 1.0 {Tesha'U}/dL Normal 0.2 - 1. 0 [facility] Comment on above: Performed By: #### E RURLINDA #### [facility] [address] [address] [address] Alfredo Lizama PROF CHEM 8 (BAS METB)on Anion gap [Moles/Vol] 8.4 mmol/L Normal [facility] Comment on above: Performed By: #### U MICRO, ERUR #### [facility] [address] [place] [address] Dr. Alfredo Lizama Calcium [Mass/Vol] 8.7 mg/dL Normal 8.5-10.1 [facility] Comment on above: Performed By: #### U MICRO, ERUR #### [facility] [address] [place] [address] Dr. Alfredo Lizama Chloride [Moles/Vol] 107 mmol/L Normal 98-107 [facility] Comment on above: Performed By: #### U MICRO, ERUR #### [facility] [address] [place] [address] Dr. Alfredo Lizama CO2 [Moles/Vol] 28.3 mmol/L Normal 21.0-32.0 [facility] Comment on above: Performed By: #### U MICRO, ERUR #### [facility] [address] [address] [address] Alfredo Lizama Creatinine [Mass/Vol] 0.70 mg/dL Normal 0.55-1.02 [facility] Comment on above: Performed By: #### U MICRO, ERUR #### [facility] [address] [address] [address] Alfredo Lizama EGFR-AF STATELESS >60 Normal >=60 [facility] Comment on above: Performed By: #### U MICRO, ERUR #### [facility] [address] [place] [address] Dr. Alfredo Lizama EGFR-NON AF STATELESS >60 Normal >=60 [facility] Comment on above: Performed By: #### U MICRO, ERUR #### [facility] [address] [place] [address] Dr. Alfredo Lizama Glucose [Mass/Vol] 97 mg/dL Normal 74-106 [facility] Comment on above: Performed By: #### U MICRO, ERUR #### [facility] [address] [place] [address] Dr. Alfredo Lizama Potassium [Moles/Vol] 3.7 mmol/L Normal 3.5-5.1 [facility] Comment on above: Performed By: #### U MICRO, ERUR #### [facility] [address] [place] [address] Dr. Alfredo Lizama Sodium [Moles/Vol] 140 mmol/L Normal 136-145 [facility] Comment on above: Performed By: #### U MICRO, ERUR #### [facility] [address] [place] [address] Dr. Alfredo Lizama Urea nitrogen [Mass/Vol] 7.0 mg/dL Normal 7.0-18.0 [facility] Comment on above: Performed By: #### U MICRO, ERUR #### [facility] [address] [place] [address] Dr. Alfredo Lizama Urea nitrogen/Creatinine [Mass ratio] 10.0 mg/mg Normal [facility] Comment on above: Performed By: #### U MICRO, ERUR #### [facility] [address] [place] [address] Dr. Alfredo Lizama URINE MICROSCOPIC ONLYon AMORPHOUS CRYSTALS FEW Normal [facility] Comment on above: Performed By: #### Jacque ESTRADA UMICRO #### [facility] [address] [place] [address] Dr. Alfredo Lizama BACTERIA LARGE Abnormal NONE SEEN [facility] Comment on above: Performed By: #### E RUR UMICRO #### [facility] [address] [place] [address] Dr. Alfredo Lizama Bacteria identified Cx Nom (U) INDICATED Normal [facility] Comment on above: Performed By: #### E RUR UMICRO #### [facility] [address] [place] [address] Dr. Alfredo Lizama CAST NONE SEEN Normal NONE SEEN [facility] Comment on above: Performed By: #### E SEAN UMICRO #### [facility] [address] [address] [address] Alfredo Lizama Crystals LM Nom (Urine sed) SEEN Abnormal NONE SEEN [facility] Comment on above: Performed By: #### E RUR, UMICRO #### [facility] [address] [address] [address] Alfredo Lizama Epithelial cells LM Ql (Urine sed) RARE Normal NONE SEEN /RARE [facility] Comment on above: Performed By: #### E RUR, UMICRO #### [facility] [address] [address] [address] Alfredo Lizama MUCOUS NONE SEEN Normal NONE SEEN [facility] Comment on above: Performed By: #### E RUR, UMICRO #### [facility] [address] [place] [address] Dr. Alfredo Lizama RBC 2-5 Abnormal 0-2 [facility] Comment on above: Performed By: #### E SEAN, UMICRO #### [facility] [address] [place] [address] Dr. Alfredo Lizama TRIPLE PHOS CRYSTALS FEW Normal [facility] Comment on above: Performed By: #### E LONAR, UMICRO #### [facility] [address] [place] [address] Dr. Alfredo Lizama WBC 75-100 Abnormal NONE SEEN [facility] Comment on above: Performed By: #### E SEAN, UMICRO #### [facility] [address] [place] [address] Dr. Alfredo Lizama [facility] [place] [facility]Inserted Image. Shelly ble to display) January 10, 2023 MORALES LEE [address] [place] [address] MORALES LEE 1975 Dear Morales, I am corresponding with you by certified mail because of repeat non compliance. You missed your catheter exchange appointment on 12/31/22. It is recommended your Alvares catheter be exchanged every 4 weeks to prevent encrustation and infection. Also you were referred to Dr Zhang at [facility] for further evaluation regarding your condition [...] Dr. Danya Bingham MD [facility] [address], [place] [address] [facility] Lab Reportson 12-29-2022 Lab Reports [id number]#[id number]:[address] [facility] Lab Reports [id number]#[id number]:[address] [facility] Lab Reports [id number]#[id number]:[address] [facility] CULTURE URINEon 12-25-2022 CULTURE URINE Isolate 1 [...] Trimethoprim/Sulfamethoxazo le <=20 S F Normal [facility] Comment on above: Performed By: #### U MICRO, ERUR #### [facility] [address] [place] [address] Dr. Alfredo Lizama Retail - Clinical Noteon Retail - Clinical Note [id number]#[id number]:[address] [facility] Patient Educationon 11-27-19 23 Patient Education Urology [...] Reviewed: 10/01/2017 Elsevier Patient Education ? [address] [facility] Retail - Clinical Noteon Retail - Clinical Note [id number]:[address] [facility] Urology Office/Clinic Noteon 11-26-2022 Urology Office/Clinic Note [...] with debris. Calcified catheter tip. New 18 Welsh two-way Alvares catheter inserted without difficulty. 15cc [...] understands and agrees with plan. -Refer to [place] for possible SP catheter placement and/or bladder [...] as ab (more content not included)... Normal [facility] Comment on above: Result Comment: Elec tronically Signed By: Zachery HARKINS, Danya Rhodes\.br\Date and Time Signed: 11/26/22 08:53 EDT\.br\Electronically Co-Signed By: Yari Barron\.br\Date and Time Co-Signed: 11/26/22 08:44 EDT ED Note-Physicianon 11-12-19 ED Note-Physician [id number]:[address] [facility] AMYLASEon 11-09-2022 Amylase [Catalytic activity/Vol] 14 U/L Critically low 25-115 [facility] Comment on above: Performed By: #### U MICRO, ERUR #### [facility] [address] [address] [address] Alfredo Lizama CBC AUTO DIFFon 11-09-2022 BASO # 0.1 103/ul Normal 0.0-0.1 [facility] Comment on above: Performed By: #### U MICRO, ERUR #### [facility] [address] [address] [address] Alfredo Lizama Basophils/100 WBC (Bld) 0.8 % Normal 0.2-2.0 [facility] Comment on above: Performed By: #### U MICRO, ERUR #### [facility] [address] [place] [address] Dr. Alfredo Lizama EO # 0.2 103/ul Normal 0.0-0.7 [facility] Comment on above: Performed By: #### U MICRO, ERUR #### [facility] [address] [place] [address] Dr. Alfredo Lizama Eosinophils/100 WBC (Bld) 2.5 % Normal 0.9-7.0 [facility] Comment on above: Performed By: #### U MICRO, ERUR #### [facility] [address] [place] [address] Dr. Alfredo Lizama Erythrocyte distribution width (RBC) [Ratio] 12.7 % Normal 11.0-15.0 [facility] Comment on above: Performed By: #### U MICRO, ERUR #### [facility] [address] [place] [address] Dr. Alfredo Lizama Hematocrit (Bld) [Volume fraction] 46.3 % Normal 36.0-48.0 [facility] Comment on above: Performed By: #### U MICRO, ERUR #### [facility] [address] [place] [address] Dr. Alfredo Lizama Hemoglobin (Bld) [Mass/Vol] 15.9 g/dL Normal 12.0-16.0 [facility] Comment on above: Performed By: #### U MICRO, ERUR #### [facility] [address] [place] [address] Dr. Alfredo Lizama IG # 0.02 10e3/ul Normal 0.00-0.03 [facility] Comment on above: Performed By: #### U MICRO, ERUR #### [facility] [address] [place] [address] Dr. Alfredo Lizama IG % 0.2 % Normal 0.0-0.5 [facility] Comment on above: Performed By: #### U MICRO, ERUR #### [facility] [address] [address] [address] Alfredo Lizama LYMPH # 2.6 103/ul Normal 1.2-3.8 [facility] Comment on above: Performed By: #### U MICRO, ERUR #### [facility] [address] [address] [address] Alfredo Lizama Lymphocytes/100 WBC (Bld) 31.3 % Normal 20.5-60.0 [facility] Comment on above: Performed By: #### U MICRO, ERUR #### [facility] [address] [address] [address] Alfredo Lizama MANUAL DIFF REQ NO Normal [facility] Comment on above: Performed By: #### U MICRO, ERUR #### [facility] [address] [place] [address] Dr. Alfredo Lizama MCH (RBC) [Entitic mass] 29.3 pg Normal 26.7-34.0 [facility] Comment on above: Performed By: #### U MICRO, ERUR #### [facility] [address] [place] [address] Dr. Alfredo Lizama MCHC (RBC) [Mass/Vol] 34.3 g/dL Normal 29.9-35.2 [facility] Comment on above: Performed By: #### U MICRO, ERUR #### [facility] [address] [place] [address] Dr. Alfredo Lizama MCV (RBC) [Entitic vol] 85.4 fL Normal 81.0-99.0 [facility] Comment on above: Performed By: #### U MICRO, ERUR #### [facility] [address] [place] [address] Dr. Alfredo Lizama MONO # 0.6 103/ul Normal 0.3-0.8 [facility] Comment on above: Performed By: #### U MICRO, ERUR #### [facility] [address] [place] [address] Dr. Alfredo Lizama Monocytes/100 WBC (Bld) 6.6 % Normal 1.7-12.0 [facility] Comment on above: Performed By: #### U MICRO, ERUR #### [facility] [address] [address] [address] Alfredo Lizama NEUT # 4.9 103/ul Normal 1.4-6.5 [facility] Comment on above: Performed By: #### U MICRO, ERUR #### [facility] [address] [address] [address] Alfredo Lizama Neutrophils/100 WBC (Bld) 58.6 % Normal 43.0-75.0 [facility] Comment on above: Performed By: #### U MICRO, ERUR #### [facility] [address] [address] [address] Alfredo Lizama Platelet mean volume (Bld) [Entitic vol] 9.5 fL Normal 9.5-13.5 [facility] Comment on above: Performed By: #### U MICRO, ERUR #### [facility] [address] [place] [address] Dr. Alfredo Lizama PLT 273 103/ul Normal 150-450 [facility] Comment on above: Performed By: #### U MICRO, ERUR #### [facility] [address] [address] [address] Alfredo Lizama RBC 5.42 106/ul Critically high 4.20-5.40 [facility] Comment on above: Performed By: #### U MICRO, ERUR #### [facility] [address] [address] [address] Alfredo Lizama WBC 8.4 103/ul Normal 4.0-11.0 [facility] Comment on above: Performed By: #### U MICRO, ERUR #### [facility] [address] [address] [address] Alfredo Lizama CULTURE URINEon 11-09-2022 CULTURE URINE Culture Observations : MODERATE GROWTH OF MIXED GENITAL ROSANNA. NO POTENTIAL PATHOGENS SEEN. Normal [facility] Comment on above: Performed By: #### U MICRO, ERUR #### [facility] [address] [address] [address] Alfredo Lizama ER URINE PROFILEon 3 Bilirubin Ql (U) Negative Normal NEGATIVE [facility] Comment on above: Performed By: #### U MICRO, ERUR #### [facility] [address] [address] [address] Alfredo Lizama Clarity (U) CLEAR Normal CLEAR [facility] Comment on above: Performed By: #### U MICRO, ERUR #### [facility] [address] [address] [address] Alfredo Lizama Color (U) LT. YELLOW Normal YELLOW [facility] Comment on above: Performed By: #### U MICRO, ERUR #### [facility] [address] [address] [address] Alfredo Lizama ERUAHD A micrscopic examina tion will be performed if indicated. Normal [facility] Comment on above: Performed By: #### U MICRO, ERUR #### [facility] [address] [place] [address] Dr. Alfredo Lizama Glucose Ql (U) Negative Normal NEGATIVE [facility] Comment on above: Performed By: #### U MICRO, ERUR #### [facility] [address] [address] [address] Alfredo Lizama Hemoglobin Ql (U) MODERATE Abnormal NEGATIVE [facility] Comment on above: Performed By: #### U MICRO, ERUR #### [facility] [address] [place] [address] Dr. Alfredo Lizama Ketones Ql (U) Negative Normal NEGATIVE [facility] Comment on above: Performed By: #### U MICRO, ERUR #### [facility] [address] [address] [address] Alfredo Lizama LEUKOCYTES LARGE Abnormal NEGATIVE [facility] Comment on above: Performed By: #### U MICRO, ERUR #### [facility] [address] [address] [address] Alfredo Lizama Nitrite Ql (U) Negative Normal NEGATIVE [facility] Comment on above: Performed By: #### U MICRO, ERUR #### [facility] [address] [place] [address] Dr. Alfredo Lizama pH (U) 7.0 [pH] Normal 5-9 [facility] Comment on above: Performed By: #### U MICRO, ERUR #### [facility] [address] [place] [address] Dr. Alfredo Lizama SPEC GRAVITY 1.015 Normal 1.005-<=1.0 25 [facility] Comment on above: Performed By: #### U MICRO, ERUR #### [facility] [address] [place] [address] Dr. Alfredo Lizama UA PROTEIN Negative Normal NEGATIVE/ TRACE [facility] Comment on above: Performed By: #### U MICRO, ERUR #### [facility] [address] [place] [address] Dr. Alfredo Lizama UR MICRO IND INDICATED Normal [facility] Comment on above: Performed By: #### U MICRO, ERUR #### [facility] [address] [place] [address] Dr. Alfredo Lizama Urobilinogen Qn (U) 0.2 {Tesha'U}/dL Normal 0.2 - 1. 0 [facility] Comment on above: Performed By: #### U MICRO, ERUR #### [facility] [address] [place] [address] Dr. Alfredo Lizama LIPASEon 11-09-2022 Lipase [Catalytic activity/Vol] 34.0 U/L Critically low 73.0-393.0 [facility] Comment on above: Performed By: #### U MICRO, ERUR #### [facility] [address] [place] [address] Dr. Alfredo Lizama PROF 14(COMP METB)on 023 Albumin [Mass/Vol] 4.0 g/dL Normal 3.4-5.0 [facility] Comment on above: Performed By: #### U MICRO, ERUR #### [facility] [address] [place] [address] Dr. Alfredo Lizama Albumin/Globulin [Mass ratio] 1.0 {ratio} Normal [facility] Comment on above: Performed By: #### U MICRO, ERUR #### [facility] [address] [place] [address] Dr. Alfredo Lizama ALP [Catalytic activity/Vol] 206 U/L Critically high 46-116 [facility] Comment on above: Performed By: #### U MICRO, ERUR #### [facility] [address] [address] [address] Alfredo Lizama ALT [Catalytic activity/Vol] 53 U/L Normal 14-59 [facility] Comment on above: Performed By: #### U MICRO, ERUR #### [facility] [address] [address] [address] Alfredo Lizama Anion gap [Moles/Vol] 14.5 mmol/L Normal [facility] Comment on above: Performed By: #### U MICRO, ERUR #### [facility] [address] [address] [address] Alfredo Lizama AST [Catalytic activity/Vol] 55 U/L Critically high 15-37 [facility] Comment on above: Performed By: #### U MICRO, ERUR #### [facility] [address] [address] [address] Alfredo Lizama Bilirubin [Mass/Vol] 0.7 mg/dL Normal 0.2-1.0 [facility] Comment on above: Performed By: #### U MICRO, ERUR #### [facility] [address] [place] [address] Dr. Alfredo Lizama Calcium [Mass/Vol] 9.0 mg/dL Normal 8.5-10.1 [facility] Comment on above: Performed By: #### U MICRO, ERUR #### [facility] [address] [address] [address] Alfredo Lizama Chloride [Moles/Vol] 100 mmol/L Normal 98-107 [facility] Comment on above: Performed By: #### U MICRO, ERUR #### [facility] [address] [address] [address] Alfredo Lizama CO2 [Moles/Vol] 28.3 mmol/L Normal 21.0-32.0 [facility] Comment on above: Performed By: #### U MICRO, ERUR #### [facility] [address] [place] [address] Dr. Alfredo Lizama Creatinine [Mass/Vol] 0.65 mg/dL Normal 0.55-1.02 [facility] Comment on above: Performed By: #### U MICRO, ERUR #### [facility] [address] [place] [address] Dr. Alfredo Lizama EGFR-AF STATELESS >60 Normal >=60 [facility] Comment on above: Performed By: #### U MICRO, ERUR #### [facility] [address] [address] [address] Alfredo Lizama EGFR-NON AF STATELESS >60 Normal >=60 [facility] Comment on above: Performed By: #### U MICRO, ERUR #### [facility] [address] [place] [address] Dr. Alfredo Lizama Globulin (S) [Mass/Vol] 3.9 g/dL Normal [facility] Comment on above: Performed By: #### U MICRO, ERUR #### [facility] [address] [place] [address] Dr. Alfredo Lizama Glucose [Mass/Vol] 134 mg/dL Critically high 74-106 [facility] Comment on above: Performed By: #### U MICRO, ERUR #### [facility] [address] [place] [address] Dr. Alfredo Lizama Potassium [Moles/Vol] 3.8 mmol/L Normal 3.5-5.1 [facility] Comment on above: Performed By: #### U MICRO, ERUR #### [facility] [address] [place] [address] Dr. Alfredo Lizama Protein [Mass/Vol] 7.9 g/dL Normal 6.4-8.2 [facility] Comment on above: Performed By: #### U MICRO, ERUR #### [facility] [address] [place] [address] Dr. Alfredo Lizama Sodium [Moles/Vol] 139 mmol/L Normal 136-145 [facility] Comment on above: Performed By: #### U MICRO, ERUR #### [facility] [address] [place] [address] Dr. Alfredo Lizama Urea nitrogen [Mass/Vol] 7.0 mg/dL Normal 7.0-18.0 [facility] Comment on above: Performed By: #### U MICRO, ERUR #### [facility] [address] [place] [address] Dr. Alfredo Lizama Urea nitrogen/Creatinine [Mass ratio] 10.7 mg/mg Normal [facility] Comment on above: Performed By: #### U MICRO, ERUR #### [facility] [address] [address] [address] Alfredo Lizama URINE MICROSCOPIC ONLYon BACTERIA TRACE Abnormal NONE SEEN [facility] Comment on above: Performed By: #### U MICRO, ERUR #### [facility] [address] [place] [address] Dr. Alfredo Lizama Bacteria identified Cx Nom (U) INDICATED Normal [facility] Comment on above: Performed By: #### U MICRO, ERUR #### [facility] [address] [place] [address] Dr. Alfredo Lizama CAST NONE SEEN Normal NONE SEEN [facility] Comment on above: Performed By: #### U MICRO, ERUR #### [facility] [address] [place] [address] Dr. Alfredo Lizama Crystals LM Nom (Urine sed) NONE SEEN Normal NONE SEEN [facility] Comment on above: Performed By: #### U MICRO, ERUR #### [facility] [address] [place] [address] Dr. Alfredo Lizama Epithelial cells LM Ql (Urine sed) FEW Abnormal NONE SEEN /RARE [facility] Comment on above: Performed By: #### U MICRO, ERUR #### [facility] [address] [place] [address] Dr. Alfredo Lizama MUCOUS NONE SEEN Normal NONE SEEN [facility] Comment on above: Performed By: #### U MICRO, ERUR #### [facility] [address] [place] [address] Dr. Alfredo Lizama RBC 20-50 Abnormal 0-2 [facility] Comment on above: Performed By: #### U MICRO, ERUR #### [facility] [address] [place], [place] [address] Dr. Alfredo Lizama WBC 20-50 Abnormal NONE SEEN [facility] Comment on above: Performed By: #### U MICRO, ERUR #### [facility] [id number] Alfredo Lizama XR ABD FLAT_UPon 11-09-2022 [...] ENRIQUE LOWE Date: 2022-11-09 11:06 Normal [facility] ED Note-Physicianon 11-06-19 ED Note-Physician [id number]:[address] [facility] Lab Reportson 11-05-2022 Lab Reports [id number]:[address] [facility] CULTURE URINEon 10-18-2022 CULTURE URINE Isolate 1 [...] Trimethoprim/Sulfamethoxazo le <=10 S F Normal [facility] Comment on above: Performed By: #### U MICRO ERUR #### [facility] [address] [place] [address] Dr. Alfredo Lizama Retail - Clinical Noteon Retail - Clinical Note [id number]:[address] [facility] ER URINE PROFILEon 3 Bilirubin Ql (U) Negative Normal NEGATIVE [facility] Comment on above: Performed By: #### Jacque ESTRADA UMICRO #### [facility] [address] [place] [address] Dr. Alfredo Lizama Clarity (U) CLEAR Normal CLEAR [facility] Comment on above: Performed By: #### Jacque ESTRADA UMICRO #### [facility] [address] [place] [address] Dr. Alfredo Lizama Color (U) YELLOW Normal YELLOW [facility] Comment on above: Performed By: #### Jacque ESTRADA UMICRO #### [facility] [address] [place] [address] Dr. Alfredo BESTAHDane A micrscopic examina tion will be performed if indicated. Normal [facility] Comment on above: Performed By: #### Jacque ESTRADA UMICRO #### [facility] [address] [place] [address] Dr. Alfredo Lizama Glucose Ql (U) Negative Normal NEGATIVE [facility] Comment on above: Performed By: #### Jacque ESTRADA UMICRO #### [facility] [address] [place] [address] Dr. Alfredo Lizama Hemoglobin Ql (U) LARGE Abnormal NEGATIVE [facility] Comment on above: Performed By: #### FER CHAVESICRO #### [facility] [address] [place] [address] Dr. Alfredo Lizama Ketones Ql (U) Negative Normal NEGATIVE [facility] Comment on above: Performed By: #### Jacque ESTRADA UMICRO #### [facility] [address] [place] [address] Dr. Alfredo Lizama LEUKOCYTES LARGE Abnormal NEGATIVE [facility] Comment on above: Performed By: #### Jacque ESTRADA UMICRO #### [facility] [address] [place] [address] Dr. Alfredo Lizama Nitrite Ql (U) Positive Abnormal NEGATIVE [facility] Comment on above: Performed By: #### CHINMAY CHAVESRO #### [facility] [address] [place] [address] Dr. Alfredo Lizama pH (U) 6.5 [pH] Normal 5-9 [facility] Comment on above: Performed By: #### CHINMAY CHAVESRO #### [facility] [address] [place] [address] Dr. Alfredo Lizama Protein (U) [Mass/Vol] 100 mg/dL Abnormal NEGATIVE/ TRACE [facility] Comment on above: Performed By: #### CHINMAY CHAVESRO #### [facility] [address] [place] [address] Dr. Alfredo Lizama SPEC GRAVITY 1.010 Normal 1.005-<=1.[address] [place] [address] Comment on above: Performed By: #### Jacque ESTRADA UMICRO #### [facility] [address] [place] [address] Dr. Alfredo Lizama UR MICRO IND INDICATED Normal [facility] Comment on above: Performed By: #### FER CHAVESICRO #### [facility] [address] [place] [address] Dr. Alfredo Lizama Urobilinogen Qn (U) 1.0 {Tesha'U}/dL Normal 0.2 - 1. 0 [facility] Comment on above: Performed By: #### LINDA CHAVES #### [facility] [address] [address] [address] Alfredo Lizama URINE MICROSCOPIC ONLYon BACTERIA MODERATE Abnormal NONE SEEN [facility] Comment on above: Performed By: #### U MICRO, ERUR #### [facility] [address] [address] [address] Alfredo Lizama Bacteria identified Cx Nom (U) INDICATED Normal [facility] Comment on above: Performed By: #### U MICRO, ERUR #### [facility] [address] [place] [address] Dr. Alfredo Lizama CA OX CRYSTALS RARE Normal [facility] Comment on above: Performed By: #### U MICRO, ERUR #### [facility] [address] [place] [address] Dr. Alfredo Lizama CAST NONE SEEN Normal NONE SEEN [facility] Comment on above: Performed By: #### U MICRO, ERUR #### [facility] [address] [address] [address] Alfredo Lizama Crystals LM Nom (Urine sed) SEEN Abnormal NONE SEEN [facility] Comment on above: Performed By: #### U MICRO, ERUR #### [facility] [address] [place] [address] Dr. Alfredo Lizama Epithelial cells LM Ql (Urine sed) MODERATE Abnormal NONE SEEN /RARE [facility] Comment on above: Performed By: #### U MICRO, ERUR #### [facility] [address] [place] [address] Dr. Alfredo Lizama MUCOUS TRACE Abnormal NONE SEEN [facility] Comment on above: Performed By: #### U MICRO, ERUR #### [facility] [address] [address] [address] Alfredo Lizama RBC 20-50 Abnormal 0-2 [facility] Comment on above: Performed By: #### U MICRO, ERUR #### [facility] [address] [place] [address] Dr. Alfredo Lizama WBC 50-75 Abnormal NONE SEEN [facility] Comment on above: Performed By: #### U MICRO, ERUR #### [facility] [address] [address] [address] Alfredo Lizama Patient Educationon 09-23-19 Patient [...] including vitamins, herbs, eye drops, creams, and kbgm-byx-[id number] medicines. ? Any problems you or family [...] tells you to take them. ? Taking llrh-tmk-svzrcan medicines, vitamins, herbs, and supplements. General instructions [...] What happens (more content not included)... Normal [facility] Provider Letteron 09-09-2022 Provider Letter (Inserted Image. Shelly ble to display) September 09, 2022 MORALES LEE [address] [place] [address] MORALES LEE 1975 Dear Morales Lee , We have been trying to reach you with no success. It is important that you return our call upon receiving this letter. Also, at the time of your call, please provide us with your current information. Thank you for your prompt attention to this matter. Sincerely, [facility] [address] [place] [address] [facility] Operative Reporton Operative Report [id number]:[address] [facility] Lab Reportson 08-26-2022 Lab Reports [id number]:127 [facility] Covid-19 PCR ([facility]on 08-06 SARS-CoV-2 (COVID-19) RNA ADRIÁN+probe Ql (Unsp spec) Not detected Normal NOT DETECTED [facility] Comment on above: Result Comment: When [...] for this test is supported by the [employer] of Health and Human Service's declaration that [...] Performed By: #### U MICRO, ERUR #### [facility] [address] [place] [address] Dr. Alfredo Lizama CBC AUTO DIFFon 08-24-2022 BASO # 0.1 103/ul Normal 0.0-0.1 [facility] Comment on above: Performed By: #### C BC #### [facility] [address] [place] [address] Dr. Alfredo Lizama Basophils/100 WBC (Bld) 0.8 % Normal 0.2-2.0 [facility] [facility] Comment on above: Performed By: #### C BC #### [facility] [address] [place] [address] Dr. Alfredo Lizama EO # 0.3 103/ul Normal 0.0-0.7 [facility] Comment on above: Performed By: #### C BC #### [facility] [address] [place] [address] Dr. Alfredo Lizama Eosinophils/100 WBC (Bld) 3.1 % Normal 0.9-7.0 [facility] Comment on above: Performed By: #### C BC #### [facility] [address] [place] [address] Dr. Alfredo Lizama Erythrocyte distribution width (RBC) [Ratio] 13.4 % Normal 11.0-15.0 [facility] Comment on above: Performed By: #### C BC #### [facility] [address] [place] [address] Dr. Alfredo Lizama Hematocrit (Bld) [Volume fraction] 47.2 % Normal 36.0-48.0 [facility] Comment on above: Performed By: #### C BC #### [facility] [address] [place] [address] Dr. Alfredo Lizama Hemoglobin (Bld) [Mass/Vol] 15.6 g/dL Normal 12.0-16.0 [facility] Comment on above: Performed By: #### C BC #### [facility] [address] [place] [address] Dr. Alfredo Lizama IG # 0.02 10e3/ul Normal 0.00-0.03 [facility] Comment on above: Performed By: #### C BC #### [facility] [address] [place] [address] Dr. Alfredo Lizama IG % 0.2 % Normal 0.0-0.5 [facility] Comment on above: Performed By: #### C BC #### [facility] [address] [place] [address] Dr. Alfredo Lizama LYMPH # 4.4 103/ul Critically high 1.2-3.8 [facility] Comment on above: Performed By: #### C BC #### [facility] [address] [place] [address] Dr. Alfredo Lizama Lymphocytes/100 WBC (Bld) 42.3 % Normal 20.5-60.0 [facility] Comment on above: Performed By: #### C BC #### [facility] [address] [place] [address] Dr. Alfredo Lizama MANUAL DIFF REQ NO Normal [facility] Comment on above: Performed By: #### C BC #### [facility] [address] [place] [address] Dr. Alfredo Lizama MCH (RBC) [Entitic mass] 28.8 pg Normal 26.7-34.0 [facility] Comment on above: Performed By: #### C BC #### [facility] [address] [place] [address] Dr. Alfredo Lizama MCHC (RBC) [Mass/Vol] 33.1 g/dL Normal 29.9-35.2 [facility] Comment on above: Performed By: #### C BC #### [facility] [address] [place] [address] Dr. Alfredo Lizama MCV (RBC) [Entitic vol] 87.2 fL Normal 81.0-99.0 [facility] Comment on above: Performed By: #### C BC #### [facility] [address] [place] [address] Dr. Alfredo Lizama MONO # 0.6 103/ul Normal 0.3-0.8 [facility] Comment on above: Performed By: #### C BC #### [facility] [address] [place] [address] Dr. Alfredo Lizama Monocytes/100 WBC (Bld) 5.3 % Normal 1.7-12.0 [facility] Comment on above: Performed By: #### C BC #### [facility] [address] [place] [address] Dr. Alfredo Lizama NEUT # 5.0 103/ul Normal 1.4-6.5 [facility] Comment on above: Performed By: #### C BC #### [facility] [address] [place] [address] Dr. Alfredo Lizama Neutrophils/100 WBC (Bld) 48.3 % Normal 43.0-75.0 [facility] Comment on above: Performed By: #### C BC #### [facility] [address] [place] [address] Dr. Alfredo Lizama Platelet mean volume (Bld) [Entitic vol] 9.9 fL Normal 9.5-13.5 [facility] Comment on above: Performed By: #### C BC #### [facility] [address] [place] [address] Dr. Alfredo Lizama PLT 298 103/ul Normal 150-450 [facility] Comment on above: Performed By: #### C BC #### [facility] [address] [place] [address] Dr. Alfredo Lizama RBC 5.41 106/ul Critically high 4.20-5.40 [facility] Comment on above: Performed By: #### C BC #### [facility] [address] [place] [address] Dr. Alfredo Lizama WBC 10.3 103/ul Normal 4.0-11.0 [facility] Comment on above: Performed By: #### C BC #### [facility] [address] [place] [address] Dr. Alfredo Lizama PROF CHEM 8 (BAS METB)on Anion gap [Moles/Vol] 14.3 mmol/L Normal [facility] Comment on above: Performed By: #### U MICRO, ERUR #### [facility] [address] [place] [address] Dr. Alfredo Lizama Calcium [Mass/Vol] 9.1 mg/dL Normal 8.5-10.1 [facility] Comment on above: Performed By: #### U MICRO, ERUR #### [facility] [address] [place] [address] Dr. Alfredo Lizama Chloride [Moles/Vol] 99 mmol/L Normal 98-107 [facility] Comment on above: Performed By: #### U MICRO, ERUR #### [facility] [address] [place] [address] Dr. Alfredo Lizama CO2 [Moles/Vol] 29.0 mmol/L Normal 21.0-32.0 [facility] Comment on above: Performed By: #### U MICRO, ERUR #### [facility] [address] [place] [address] Dr. Alfredo Lizama Creatinine [Mass/Vol] 0.70 mg/dL Normal 0.55-1.02 [facility] Comment on above: Performed By: #### U MICRO, ERUR #### [facility] [address] [place] [address] Dr. Alfredo Lizama EGFR-AF STATELESS >60 Normal >=60 [facility] Comment on above: Performed By: #### U MICRO, ERUR #### [facility] [address] [place] [address] Dr. Alfredo Lizama EGFR-NON AF STATELESS >60 Normal >=60 [facility] Comment on above: Performed By: #### U MICRO, ERUR #### [facility] [address] [place] [address] Dr. Alfredo Lizama Glucose [Mass/Vol] 121 mg/dL Critically high 74-106 T [facility] Comment on above: Performed By: #### U MICRO, ERUR #### [facility] [address] [place] [address] Dr. Alfredo Lizama Potassium [Moles/Vol] 3.3 mmol/L Critically low 3.5-5.1 [facility] Comment on above: Performed By: #### U MICRO, ERUR #### [facility] [address] [place] [address] Dr. Alfredo Lizama Sodium [Moles/Vol] 139 mmol/L Normal 136-145 [facility] Comment on above: Performed By: #### U MICRO, ERUR #### [facility] [address] [place] [address] Dr. Alfredo Lizama Urea nitrogen [Mass/Vol] 5.0 mg/dL Critically low 7.0-18.0 [facility] Comment on above: Performed By: #### U MICRO, ERUR #### [facility] [address] [place] [address] Dr. Alfredo Lizama Urea nitrogen/Creatinine [Mass ratio] 7.1 mg/mg Normal [facility] Comment on above: Performed By: #### U MICRO, ERUR #### [facility] [address] [place] [address] Dr. Alfredo Lizama PROTIMEon 08-24-2022 INR Coag (PPP) [Relative time] 0.99 {INR} Normal [facility] Comment on above: Performed By: #### P T, PTT #### [facility] [address] [place] [address] Dr. Alfredo Lizama INR GUIDELINES SEE BELOW Normal [facility] Comment on above: Result Comment: MARY JO RED INR: 2.0 - 3.0 CONDITIONS NOT LISTED BELOW 2.5 - 3.5 FOR PROSTHETIC HEART VALVE REPLACEMENT 2.5 - 3.5 RECURRENT THROMBOSIS Performed By: #### P T, PTT #### [facility] [address] [place] [address] Dr. Alfredo Lizama PT Coag (PPP) [Time] 10.7 s Normal 9.0-11.6 [facility] Comment on above: Performed By: #### P T, PTT #### [facility] [address] [place] [address] Dr. Alfredo Lizama PTTon 08-24-2022 aPTT Coag (Bld) [Time] 31.7 s Normal 22.3-36.2 [facility] Comment on above: Performed By: #### P T, PTT #### [facility] [address] [place] [address] [address] Alfredo Lizama Physician Orderon 08-24-2022 Physician Order [id number]#1.00CD:[address] [facility] Retail - Clinical Noteon Retail - Clinical Note [id number]#1.00CD:[address] [facility] Patient Educationon 07-16-20 Patient Education Urology Urinary [...] nerve stimulation). ? For women, using a regional medical director to prevent urine leaks. This is a [...] after experiencing incontinence. General instructions ? Take snia-ftx-cnumpfb and prescription medicines only as (more content not included)... Normal [facility] Pre-Certification Formon Pre-Certification Form [id number]#1.00CD:[address] [facility] Urology Office/Clinic Noteon 07-16-2022 Urology Office/Clinic Note [...] of temp indwelling bladder cath (alvares) simple 49081 2. 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 Normal [facility] Comment on above: Result Comment: Elec tronically Signed By: Danya Bingham MD\.br\Date and Time Signed: 07/16/22 13:13 EST\.br\Electronically Co-Signed By: Yari Barron\.br\Date and Time Co-Signed: 07/16/22 12:16 EST Reminderson 07-06-2022 Reminders - From: Sandra Kessler To: EU - Recalls Zachery; Sandra Kessler; Sent: 03/26/2022 11:47:40 EDT Show up: 04/16/2022 11:47:00 EDT Subject: 4 week cath change Reminder/Recall schedule 4 week cath change at [facility]. alvares cath was changed at [facility] on 03/30/22, pt will be [...] catheter changes need to be done at [facility] [address] because she needs lift/assistance. will schedule this faxed order/form to [facility] [address] to be scheduled week of 05/10/22 per Jose at [facility] they have tried calling patient to schedule, no response. I tried calling patient today, no answer, unable to leave VM- phone just kept ringing. Patient had her catheter changed at [facility] on 05/07/22, due in 4 weeks unless s/p tube gets placed before then Order faxed to [facility] for patients cath change to be scheduled at [facility]. will track. From: Sandra Kessler To: SHAHZAD Bingham; Sent: 06/08/2022 08:26:14 EDT Show up: 06/08/2022 08:26:00 EDT Subject: RE: 4 week cath change other message in patient has upcoming appt 07-16-[address] Bingham, she still has not scheduled her cath change Normal [facility] Formson 06-08-2022 Forms [id number]#1.00CD:[address] [facility] Physician Orderon 06-08-2022 Physician Order [id number]#1.00CD:[address] [facility] BN SACRUM/COCCYX, MIN 2 VIEW Son 06-07-2022 [...] 09/20/2019. Thoracolumbar spine radiographs 09/08/2021. ACCESSION NUMBER(S): [id number]; [id number]; [id number] ORDERING CLINICIAN: CANDICE PEREZ FINDINGS: Three views [...] Electronically signed by: GOMEZ JAMA MD Normal [facility] BN SPINE, LUMBOSACRAL; 2 OR 3 [...] 09/20/2019. Thoracolumbar spine radiographs 09/08/2021. ACCESSION NUMBER(S): [id number]; [id number]; [id number] ORDERING CLINICIAN: CANDICE PEREZ FINDINGS: Three views [...] stated. Electronically signed by: GOMEZ JAMA MD [facility] BN SPINE, THORACIC, 3 VIEWSo n 06-07-2022 [...] 09/20/2019. Thoracolumbar spine radiographs 09/08/2021. ACCESSION NUMBER(S): [id number]; [id number]; [id number] ORDERING CLINICIAN: CANDICE PEREZ FINDINGS: Three views [...] Electronically signed by: GOMEZ JAMA MD Normal [facility] CBC AND DIFFERENTIALon 06-07 % AUTOMATED IMMATURE GRAN 0.2 % Normal 0.0 - 0.9 [facility] Comment on above: Result Comment: Jaleesa ture Granulocyte Count (IG) includes promyelocytes, myelocytes and metamyelocytes but does not include bands. Percent differential counts (%) should be interpreted in the context of the absolute cell counts (cells/L). Performed By: #### R ENAL #### [facility] [address] [place] [address] Basophils (Bld) [#/Vol] 0.09 10*3/uL Normal 0.00 - 0.10 [facility] Comment on above: Performed By: #### R ENAL #### [facility] [address] [place] [address] Basophils/100 WBC (Bld) 1.0 % Normal 0.0 - 2.0 [facility] Comment on above: Performed By: #### R ENAL #### [facility] [address] [place] [address] Eosinophils (Bld) [#/Vol] 0.24 10*3/uL Normal 0.00 - 0.70 [facility] Comment on above: Performed By: #### R ENAL #### [facility] [address] [place] [address] Eosinophils/100 WBC (Bld) 2.6 % Normal 0.0 - 6.0 [facility] Comment on above: Performed By: #### R ENAL #### [facility] [address] [place] [address] Erythrocyte distribution width (RBC) [Ratio] 12.9 % Normal 11.5 - 14.5 [facility] Comment on above: Performed By: #### R ENAL #### [facility] [address] [place] [address] Hematocrit (Bld) [Volume fraction] 48.4 % High 36.0 - 46.0 [facility] Comment on above: Performed By: #### R ENAL #### [facility] [address] [place] [address] Hemoglobin (Bld) [Mass/Vol] 17.1 g/dL High 12.0 - 16.0 [facility] Comment on above: Performed By: #### R ENAL #### [facility] [address] [place] [address] Lymphocytes (Bld) [#/Vol] 2.93 10*3/uL Normal 1.20 - 4.80 [facility] Comment on above: Performed By: #### R ENAL #### [facility] [address] [place] [address] Lymphocytes/100 WBC (Bld) 31.9 % Normal 13.0 - 44.0 [facility] Comment on above: Performed By: #### R ENAL #### [facility] [address] [place] [address] MCHC (RBC) [Mass/Vol] 35.3 g/dL Normal 32.0 - 36.0 [facility] Comment on above: Performed By: #### R ENAL #### [facility] [address] [place] [address] MCV (RBC) [Entitic vol] 85 fL Normal 80 - 100 [facility] Comment on above: Performed By: #### R ENAL #### [facility] [address] [place] [address] Monocytes (Bld) [#/Vol] 0.36 10*3/uL Normal 0.10 - 1.00 [facility] Comment on above: Performed By: #### R ENAL #### [facility] [address] [place] [address] Monocytes/100 WBC (Bld) 3.9 % Normal 2.0 - 10.0 [facility] Comment on above: Performed By: #### R ENAL #### [facility] [address] [place] [address] Neutrophils (Bld) [#/Vol] 5.54 10*3/uL Normal 1.20 - 7.70 [facility] Comment on above: Performed By: #### R ENAL #### [facility] [address] [place] [address] Neutrophils/100 WBC (Bld) 60.4 % Normal 40.0 - 80.0 [facility] Comment on above: Performed By: #### R ENAL #### [facility] [address] [place] [address] NUCLEATED RBC 0.0 /100 WBC Normal 0.0-0.0 [facility] Comment on above: Performed By: #### R ENAL #### [facility] [address] [place] [address] Platelets (Bld) [#/Vol] 365 10*3/uL Normal 150 - 450 [facility] Comment on above: Performed By: #### R ENAL #### [facility] [address] [place] [address] RBC 5.69 x10E12/L High 4.00 - 5.20 [facility] Comment on above: Performed By: #### R ENAL #### [facility] [address] [place] [address] WBC (Bld) [#/Vol] 9.2 10*3/uL Normal 4.4 - 11.3 [facility] Comment on above: Performed By: #### R ENAL #### [facility] [address] [place] [address] COMPREHENSIVE PANELon 2021 Albumin [Mass/Vol] 4.6 g/dL Normal 3.4 - 5.0 [facility] Comment on above: Performed By: #### R ENAL #### [facility] [address] [place] [address] ALP [Catalytic activity/Vol] 192 U/L High 33 - 110 [facility] Comment on above: Performed By: #### R ENAL #### [facility] [address] [place] [address] ALT [Catalytic activity/Vol] 33 U/L Normal 7 - 45 [facility] Comment on above: Result Comment: Melly ents treated with Sulfasalazine may generate falsely decreased results for ALT. Performed By: #### R ENAL #### [facility] [address] [place] [address] Anion gap [Moles/Vol] 16 mmol/L Normal 10 - 20 [facility] Comment on above: Performed By: #### R ENAL #### [facility] [address] [place] [address] AST [Catalytic activity/Vol] 51 U/L High 9 - 39 [facility] Comment on above: Performed By: #### R ENAL #### [facility] [address] [place] [address] Bilirubin [Mass/Vol] 0.5 mg/dL Normal 0.0 - 1.2 [facility] Comment on above: Performed By: #### R ENAL #### [place] [address] [place] [address] Calcium [Mass/Vol] 10.3 mg/dL Normal 8.6 - 10.6 [facility] Comment on above: Performed By: #### R ENAL #### [place] [address] [place] [address] Chloride [Moles/Vol] 101 mmol/L Normal 98 - 107 [facility] Comment on above: Performed By: #### R ENAL #### [place] [address] [place] [address] Creatinine [Mass/Vol] 0.61 mg/dL Normal 0.50 - 1.05 [facility] Comment on above: Performed By: #### R ENAL #### [facility] [address] [place] [address] eGFR FEMALE >90 Normal >90 [facility] Comment on above: Result Comment: CALC ULATIONS OF ESTIMATED GFR ARE PERFORMED USING THE 2020 CKD-EPI STUDY REFIT EQUATION WITHOUT THE RACE VARIABLE FOR THE IDMS-TRACEABLE CREATININE METHODS. https://jasn.asnjournals.org/content//ASN.7799017 988 Performed By: #### R ENAL #### [facility] [address] [place] [address] Glucose [Mass/Vol] 100 mg/dL High 74 - 99 [facility] Comment on above: Performed By: #### R ENAL #### [facility] [address] [place] [address] HCO3 (Bld) [Moles/Vol] 27 mmol/L Normal 21 - 32 [facility] Comment on above: Performed By: #### R ENAL #### [facility] [address] [place] [address] Potassium [Moles/Vol] 3.8 mmol/L Normal 3.5 - 5.3 [facility] Comment on above: Performed By: #### R ENAL #### [facility] [address] [place] [address] Protein [Mass/Vol] 8.2 g/dL Normal 6.4 - 8.2 [facility] Comment on above: Performed By: #### R ENAL #### [place] [address] [place] [address] Sodium [Moles/Vol] 140 mmol/L Normal 136 - 145 [facility] Comment on above: Performed By: #### R ENAL #### [facility] [address] [place] [address] Urea nitrogen [Mass/Vol] 5 mg/dL Low 6 - 23 [facility] Comment on above: Performed By: #### R ENAL #### [facility] [address] [place] [address] Consult - Neuro-Surgeryon Consult - Neuro-Surgery Service: [...] Updated: 07-Jun-2022 11:22 by Perez Carlisle) Normal [facility] NR CT L-SPINE WO CONTRASTon 06-07-[address] L-SPINE WO CONTRAST Patient Name: MORALES LEE STUDY: CT T-SPINE WO CONTRAST; CT L-SPINE WO CONTRAST 06/06/2022 11:03 pm INDICATION: ok, Lie Flat: Yes COMPARISON: 09/20/2021 MRI and 09/18/2021 CT ACCESSION NUMBER(S): [id number]; [id number] ORDERING CLINICIAN: CANDICE PEREZ TECHNIQUE: Axial CT [...] osseous spinal canal or neural foraminal stenosis. Mdhg-aq-kgxvagiw spinal canal and neural foraminal narrowing described [...] Electronically signed by: CELI MCNEIL, DO Normal [facility] NR CT T-SPINE WO CONTRASTon 06-07-[address] T-SPINE WO CONTRAST Patient Name: MORALES LEE STUDY: CT T-SPINE WO CONTRAST; CT L-SPINE WO CONTRAST 06/06/2022 11:03 pm INDICATION: ok, Lie Flat: Yes COMPARISON: 09/20/2021 MRI and 09/18/2021 CT ACCESSION NUMBER(S): [id number]; [id number] ORDERING CLINICIAN: CANDICE PEREZ TECHNIQUE: Axial CT [...] osseous spinal canal or neural foraminal stenosis. Sopr-gn-gaiskupj spinal canal and neural foraminal narrowing described [...] view. Electronically signed by: DO Andrei TOURE [facility] Provider Note - ED Care Diaz cassiegiovanni [...] Updated: 21-Jun-2022 06:18 by Yony Aguirre () [facility] Provider Note - ED v3on 10-0 Provider [...] - M21.37 (more content not included)... Normal [facility] Triage - EDon 06-06-2022 Triage - ED [...] Updated: 06-Jun-2022 19:07 by Meghan ChavezRN) Normal [facility] Physician Orderon 05-17-2022 Physician Order [id number]#1.00CD:[address] [facility] ED Note-Physicianon 05-11-20 ED Note-Physician [id number]#1.00CD:[address] [facility] Lab Reportson 05-11-2022 Lab Reports [id number]#1.00CD:[address] [facility] RAD - CT Reporton 05-11-2022 RAD - CT Report [id number]#1.00CD:[address] [facility] CULTURE URINEon 05-10-2022 CULTURE URINE Isolate 1 [...] F Trimethoprim/Sulfamethoxazo le <=20 S F Normal [facility] Comment on above: Performed By: #### U MICRO, ERUR #### [facility] [address] [place], [place] [address] Dr. Alfredo Lizama CBC AUTO DIFFon 05-07-2022 BASO # 0.1 103/ul Normal 0.0-0.1 [facility] Comment on above: Performed By: #### U MICRO, ERUR #### [facility] [address] [place] [address] Dr. Alfredo Lizama Basophils/100 WBC (Bld) 0.5 % Normal 0.2-2.0 [facility] Comment on above: Performed By: #### U MICRO, ERUR #### [facility] [address] [place] [address] Dr. Alfredo Lizama EO # 0.4 103/ul Normal 0.0-0.7 [facility] Comment on above: Performed By: #### U MICRO, ERUR #### [facility] [address] [place] [address] Dr. Alfredo Lizama Eosinophils/100 WBC (Bld) 3.5 % Normal 0.9-7.0 [facility] Comment on above: Performed By: #### U MICRO, ERUR #### [facility] [address] [place] [address] Dr. Alfredo Lizama Erythrocyte distribution width (RBC) [Ratio] 13.2 % Normal 11.0-15.0 [facility] Comment on above: Performed By: #### U MICRO, ERUR #### [facility] [address] [place] [address] Dr. Alfredo Lizama Hematocrit (Bld) [Volume fraction] 44.0 % Normal 36.0-48.0 [facility] Comment on above: Performed By: #### U MICRO, ERUR #### [facility] [address] [place] [address] Dr. Alfredo Lizama Hemoglobin (Bld) [Mass/Vol] 14.8 g/dL Normal 12.0-16.0 [facility] Comment on above: Performed By: #### U MICRO, ERUR #### [facility] [address] [place] [address] Dr. Alfredo Lizama IG # 0.03 10e3/ul Normal 0.00-0.03 [facility] Comment on above: Performed By: #### U MICRO, ERUR #### [facility] [address] [place] [address] Dr. Alfredo Lizama IG % 0.2 % Normal 0.0-0.5 [facility] Comment on above: Performed By: #### U MICRO, ERUR #### [facility] [address] [address] [address] Alfredo Lizama LYMPH # 3.8 103/ul Normal 1.2-3.8 [facility] Comment on above: Performed By: #### U MICRO, ERUR #### [facility] [address] [place] [address] Dr. Alfredo Lizama Lymphocytes/100 WBC (Bld) 31.3 % Normal 20.5-60.0 [facility] Comment on above: Performed By: #### U MICRO, ERUR #### [facility] [address] [place] [address] Dr. Alfredo Lizama MANUAL DIFF REQ NO Normal [facility] Comment on above: Performed By: #### U MICRO, ERUR #### [facility] [address] [place] [address] Dr. Alfredo Lizama MCH (RBC) [Entitic mass] 28.8 pg Normal 26.7-34.0 [facility] Comment on above: Performed By: #### U MICRO, ERUR #### [facility] [address] [place] [address] Dr. Alfredo Lizama MCHC (RBC) [Mass/Vol] 33.6 g/dL Normal 29.9-35.2 [facility] Comment on above: Performed By: #### U MICRO, ERUR #### [facility] [address] [place] [address] Dr. Alfredo Lizama MCV (RBC) [Entitic vol] 85.8 fL Normal 81.0-99.0 [facility] Comment on above: Performed By: #### U MICRO, ERUR #### [facility] [address] [place] [address] Dr. Alfredo Lizama MONO # 0.7 103/ul Normal 0.3-0.8 [facility] Comment on above: Performed By: #### U MICRO, ERUR #### [facility] [address] [place] [address] Dr. Alfredo Lizama Monocytes/100 WBC (Bld) 5.8 % Normal 1.7-12.0 [facility] Comment on above: Performed By: #### U MICRO, ERUR #### [facility] [address] [address] [address] Alfredo Lizama NEUT # 7.1 103/ul Critically high 1.4-6.5 [facility] Comment on above: Performed By: #### U MICRO, ERUR #### [facility] [address] [place] [address] Dr. Alfredo Lizama Neutrophils/100 WBC (Bld) 58.7 % Normal 43.0-75.0 [facility] Comment on above: Performed By: #### U MICRO, ERUR #### [facility] [address] [place] [address] Dr. Alfredo Lizama Platelet mean volume (Bld) [Entitic vol] 9.6 fL Normal 9.5-13.5 [facility] Comment on above: Performed By: #### U MICRO, ERUR #### [facility] [address] [place] [address] Dr. Alfredo Lizama PLT 269 103/ul Normal 150-450 [facility] Comment on above: Performed By: #### U MICRO, ERUR #### [facility] [address] [place] [address] Dr. Alfredo Lizama RBC 5.13 106/ul Normal 4.20-5.40 [facility] Comment on above: Performed By: #### U MICRO, ERUR #### [facility] [address] [place] [address] Dr. Alfredo Lizama WBC 12.2 103/ul Critically high 4.0-11.0 [facility] Comment on above: Performed By: #### U MICRO, ERUR #### [facility] [address] [place] [address] ABD/PELV W CONon [...] KORIN STANLEY Date: 2022-05-07 14:00 Normal [facility] ER URINE PROFILEon 2 Bilirubin Ql (U) Negative Normal NEGATIVE [facility] Comment on above: Performed By: #### U MICRO, ERUR #### [facility] [address] [address] [address] Alfredo Lizama Clarity (U) CLOUDY Abnormal CLEAR [facility] Comment on above: Performed By: #### U MICRO, ERUR #### [facility] [address] [address] [address] Alfredo Lizama Color (U) LT. YELLOW Normal YELLOW [facility] Comment on above: Performed By: #### U MICRO, ERUR #### [facility] [address] [address] [address] Alfredo Lizama ERUAHD A micrscopic examina tion will be performed if indicated. Normal [facility] Comment on above: Performed By: #### U MICRO, ERUR #### [facility] [address] [place] [address] Dr. Alfredo Lizama Glucose Ql (U) Negative Normal NEGATIVE [facility] Comment on above: Performed By: #### U MICRO, ERUR #### [facility] [address] [address] [address] Alfredo Lizama Hemoglobin Ql (U) LARGE Abnormal NEGATIVE [facility] Comment on above: Performed By: #### U MICRO, ERUR #### [facility] [address] [address] [address] Alfredo Lizama Ketones Ql (U) Negative Normal NEGATIVE [facility] Comment on above: Performed By: #### U MICRO, ERUR #### [facility] [address] [address] [address] Alfredo Lizama LEUKOCYTES MODERATE Abnormal NEGATIVE [facility] Comment on above: Performed By: #### U MICRO, ERUR #### [facility] [address] [address] [address] Alfredo Lizama Nitrite Ql (U) Positive Abnormal NEGATIVE [facility] Comment on above: Performed By: #### U MICRO, ERUR #### [facility] [address] [address] [address] Alfredo Lizama pH (U) 8.5 [pH] Normal 5-9 [facility] Comment on above: Performed By: #### U MICRO, ERUR #### [facility] [address] [address] [address] Alfredo Lizama Protein (U) [Mass/Vol] 100 mg/dL Abnormal NEGATIVE/ TRACE [facility] Comment on above: Performed By: #### U MICRO, ERUR #### [facility] [address] [place] [address] Dr. Alfredo Lizama SPEC GRAVITY 1.015 Normal 1.005-<=1.0 25 [facility] Comment on above: Performed By: #### U MICRO, ERUR #### [facility] [address] [address] [address] Alfredo Lizama UR MICRO IND INDICATED Normal [facility] Comment on above: Performed By: #### U MICRO, ERUR #### [facility] [address] [place] [address] Dr. Alfredo Lizama Urobilinogen Qn (U) 1.0 {Tesha'U}/dL Normal 0.2 - 1. 0 [facility] Comment on above: Performed By: #### U MICRO, ERUR #### [facility] [address] [place] [address] Dr. Alfredo Lizama PROF CHEM 8 (BAS METB)on Anion gap [Moles/Vol] 12.0 mmol/L Normal [facility] Comment on above: Performed By: #### U MICRO, ERUR #### [facility] [address] [place] [address] Dr. Alfredo Lizama Calcium [Mass/Vol] 8.6 mg/dL Normal 8.5-10.1 [facility] Comment on above: Performed By: #### U MICRO, ERUR #### [facility] [address] [place] [address] Dr. Alfredo Lizama Chloride [Moles/Vol] 101 mmol/L Normal 98-107 [facility] Comment on above: Performed By: #### U MICRO, ERUR #### [facility] [address] [place] [address] Dr. Alfredo Lizama CO2 [Moles/Vol] 28.0 mmol/L Normal 21.0-32.0 [facility] Comment on above: Performed By: #### U MICRO, ERUR #### [facility] [address] [place] [address] Dr. Alfredo Lizama Creatinine [Mass/Vol] 0.77 mg/dL Normal 0.55-1.02 [facility] Comment on above: Performed By: #### U MICRO, ERUR #### [facility] [address] [address] [address] Alfredo Lizama EGFR-AF STATELESS >60 Normal >=60 [facility] Comment on above: Performed By: #### U MICRO, ERUR #### [facility] [address] [place] [address] Dr. Alfredo Lizama EGFR-NON AF STATELESS >60 Normal >=60 [facility] Comment on above: Performed By: #### U MICRO, ERUR #### [facility] [address] [place] [address] Dr. Alfredo Lizama Glucose [Mass/Vol] 96 mg/dL Normal 74-106 [facility] Comment on above: Performed By: #### U MICRO, ERUR #### [facility] [address] [place] [address] Dr. Alfredo Lizama Potassium [Moles/Vol] 4.0 mmol/L Normal 3.5-5.1 [facility] Comment on above: Performed By: #### U MICRO, ERUR #### [facility] [address] [place] [address] Dr. Alfredo Lizama Sodium [Moles/Vol] 137 mmol/L Normal 136-145 [facility] Comment on above: Performed By: #### U MICRO, ERUR #### [facility] [address] [place] [address] Dr. Alfredo Lizama Urea nitrogen [Mass/Vol] 7.0 mg/dL Normal 7.0-18.0 [facility] Comment on above: Performed By: #### U MICRO, ERUR #### [facility] [address] [place] [address] Dr. Alfredo Lizama Urea nitrogen/Creatinine [Mass ratio] 9.1 mg/mg Normal [facility] Comment on above: Performed By: #### U MICRO, ERUR #### [facility] [address] [address] [address] Alfredo Lizama URINE MICROSCOPIC ONLYon BACTERIA MODERATE Abnormal NONE SEEN [facility] Comment on above: Performed By: #### U MICRO, ERUR #### [facility] [address] [place] [address] Dr. Alfredo Lizama Bacteria identified Cx Nom (U) INDICATED Normal [facility] Comment on above: Performed By: #### U MICRO, ERUR #### [facility] [address] [place] [address] Dr. Alfredo Lizama CAST NONE SEEN Normal NONE SEEN [facility] Comment on above: Performed By: #### U MICRO, ERUR #### [facility] [address] [place] [address] Dr. Alfredo Lizama Crystals LM Nom (Urine sed) NONE SEEN Normal NONE SEEN [facility] Comment on above: Performed By: #### U MICRO, ERUR #### [facility] [address] [place] [address] Dr. Alfredo Lizama Epithelial cells LM Ql (Urine sed) FEW Abnormal NONE SEEN /RARE [facility] Comment on above: Performed By: #### U MICRO, ERUR #### [facility] [address] [place] [address] Dr. Alfredo Lizama MUCOUS NONE SEEN Normal NONE SEEN [facility] Comment on above: Performed By: #### U MICRO, ERUR #### [facility] [address] [place] [address] Dr. Alfredo Lizama RBC 2-5 Abnormal 0-2 [facility] Comment on above: Performed By: #### U MICRO, ERUR #### [facility] [address] [place] [address] Dr. Alfredo Lizama WBC 10-20 Abnormal NONE SEEN [facility] Comment on above: Performed By: #### U MICRO, ERUR #### [facility] [address] [place] [address] Dr. Alfredo Lizama Formson 04-29-2022 Forms [id number]:[address] [facility] ED Note-Physicianon 04-14-20 ED Note-Physician [id number]:[address] [facility] CULTURE URINEon 04-10-2022 CULTURE URINE Isolate 1 [...] Trimethoprim/Sulfamethoxazo le <=20 S F Normal [facility] Comment on above: Performed By: #### U MICRO, ERUR #### [facility] [address] [place] [address] Dr. Alfredo Lizama ER URINE PROFILEon 2 Bilirubin Ql (U) Negative Normal NEGATIVE [facility] Comment on above: Performed By: #### U MICRO, ERUR #### [facility] [address] [address] [address] Alfredo Lizama Clarity (U) CLOUDY Abnormal CLEAR [facility] Comment on above: Performed By: #### U MICRO, ERUR #### [facility] [address] [address] [address] Alfredo Lizama Color (U) YELLOW Normal YELLOW [facility] Comment on above: Performed By: #### U MICRO, ERUR #### [facility] [address] [address] [address] Alfredo Lizama ERUAHD A micrscopic examina tion will be performed if indicated. Normal [facility] Comment on above: Performed By: #### U MICRO, ERUR #### [facility] [address] [place] [address] Dr. Alfredo Lizama Glucose Ql (U) Negative Normal NEGATIVE [facility] Comment on above: Performed By: #### U MICRO, ERUR #### [facility] [address] [address] [address] Alfredo Lizama Hemoglobin Ql (U) SMALL Abnormal NEGATIVE [facility] Comment on above: Performed By: #### U MICRO, ERUR #### [facility] [address] [place] [address] Dr. Alfredo Lizama Ketones Ql (U) Negative Normal NEGATIVE [facility] Comment on above: Performed By: #### U MICRO, ERUR #### [facility] [address] [address] [address] Alfredo Lizama LEUKOCYTES LARGE Abnormal NEGATIVE [facility] Comment on above: Performed By: #### U MICRO, ERUR #### [facility] [address] [address] [address] Alfredo Lizama Nitrite Ql (U) Negative Normal NEGATIVE [facility] Comment on above: Performed By: #### U MICRO, ERUR #### [facility] [address] [place] [address] Dr. Alfredo Lizama pH (U) 7.0 [pH] Normal 5-9 [facility] Comment on above: Performed By: #### U MICRO, ERUR #### [facility] [address] [place] [address] Dr. Alfredo Lizama SPEC GRAVITY <=1.005 Abnormal 1.005-<=1.0 25 [facility] Comment on above: Performed By: #### U MICRO, ERUR #### [facility] [address] [place] [address] Dr. Alfredo Lizama UA PROTEIN Negative Normal NEGATIVE/ TRACE [facility] Comment on above: Performed By: #### U MICRO, ERUR #### [facility] [address] [place] [address] Dr. Alfredo Lizama UR MICRO IND INDICATED Normal [facility] Comment on above: Performed By: #### U MICRO, ERUR #### [facility] [address] [place] [address] Dr. Alfredo Lizama Urobilinogen Qn (U) 0.2 {Tesha'U}/dL Normal 0.2 - 1. 0 [facility] Comment on above: Performed By: #### U MICRO, ERUR #### [facility] [address] [place] [address] Dr. Alfredo Lizama URINE MICROSCOPIC ONLYon BACTERIA MODERATE Abnormal NONE SEEN [facility] Comment on above: Performed By: #### U MICRO, ERUR #### [facility] [address] [place] [address] Dr. Alfredo Lizama Bacteria identified Cx Nom (U) INDICATED Normal [facility] Comment on above: Performed By: #### U MICRO, ERUR #### [facility] [address] [place] [address] Dr. Alfredo Lizama CAST NONE SEEN Normal NONE SEEN [facility] Comment on above: Performed By: #### U MICRO, ERUR #### [facility] [address] [place] [address] Dr. Alfredo Lizama Crystals LM Nom (Urine sed) NONE SEEN Normal NONE SEEN [facility] Comment on above: Performed By: #### U MICRO, ERUR #### [facility] [address] [place] [address] Dr. Alfredo Lizama Epithelial cells LM Ql (Urine sed) FEW Abnormal NONE SEEN /RARE [facility] Comment on above: Performed By: #### U MICRO, ERUR #### [facility] [address] [address] [address] Alfredo Lizama MUCOUS NONE SEEN Normal NONE SEEN [facility] Comment on above: Performed By: #### U MICRO, ERUR #### [facility] [address] [address] [address] Alfredo Lizama RBC 5-10 Abnormal 0-2 [facility] Comment on above: Performed By: #### U MICRO, ERUR #### [facility] [address] [address] [address] Alfredo Lizama WBC (U) [#/Vol] /uL Abnormal NONE SEEN [facility] Comment on above: Performed By: #### U MICRO, ERUR #### [facility] [address] [address] [address] Alfredo Lizama ED Note-Physicianon 04-05-20 ED Note-Physician [id number]:[address] [facility] Formson 03-26-2022 Forms [id number]:[address] [facility] Basic Metabolic Panelon 11-03 Calcium [Mass/Vol] 8.9 mg/dL Normal 8.2-10.2 [facility] Comment on above: Performed By: #### C BC, CMP, PAB #### [facility] [address] [place] [address] [place] Chloride [Moles/Vol] 101 mmol/L Normal 95-114 [facility] Comment on above: Performed By: #### C BC, CMP, PAB #### [facility] [address] [place] [address] [place] CO2 [Moles/Vol] 29.0 mmol/L Normal 22.0-30.0 [facility] Comment on above: Performed By: #### C BC, CMP, PAB #### [facility] [address] Creatinine [Mass/Vol] 0.48 mg/dL Normal 0.44-1.03 [facility] Comment on above: Performed By: #### C DARIUS PATEL, PAB #### [address] Creatinine Clr Calc Pharmacy 150.29 Normal [facility] Comment on above: Result Comment: PERF ORMED BY: [place] [address] PATHOLOGIST [employer]GER HUY COX M.D. Performed By: #### C DARIUS PATEL, PAB #### [address] Estimated GFR ( July > 60 [facility] Comment on above: Result Comment: GFR estimated reference range: According to KDOQI guidelines, <60 ml/min/1.73m2 is sufficient to diagnose a patient with chronic kidney disease. Performed By: #### C DARIUS PATEL, PAB #### [address] Estimated GFR (Non- Am > 60 Normal [facility] Comment on above: Performed By: #### C DARIUS PATEL, PAB #### [address] Glucose [Mass/Vol] 111 mg/dL High 70-100 [facility] Comment on above: Result Comment: [place] Glucose Reference Range is dependent on time and content of last meal. Glucose of more than 200 mg/dL in a nonstressed, ambulatory subject supports the diagnosis of Diabetes Mellitus. ADA recommended reference range Performed By: #### C DARIUS PATEL, PAB #### [address] Potassium [Moles/Vol] 3.6 mmol/L Normal 3.5-5.1 [facility] Comment on above: Performed By: #### C DARIUS PATEL, PAB #### [address] Sodium [Moles/Vol] 138 mmol/L Normal 136-146 [facility] Comment on above: Performed By: #### C BC, CMP, PAB #### [facility] [address] Urea nitrogen [Mass/Vol] 10 mg/dL Normal 9- [facility] Comment on above: Performed By: #### C BC, CMP, PAB #### [facility] [address] Complete Blood Count Auto Di ffon 11-19-2021 Basophils (Bld) [#/Vol] 0.1 10*3/uL Normal 0.0-0.2 [facility] Comment on above: Result Comment: PERF ORMED BY: [place] [address] PATHOLOGIST [employer] MANAGER HUY COX M.D. Performed By: #### C BC, CMP, PAB #### [address] Basophils/100 WBC (Bld) 0.8 % Normal . [facility] Comment on above: Performed By: #### C BC, CMP, PAB #### [facility] [address] [place] [address] [place] Eosinophils (Bld) [#/Vol] 0.4 10*3/uL Normal 0.0-0.45 [facility] Comment on above: Performed By: #### C BC, CMP, PAB #### [place] [address] [place] Eosinophils/100 WBC (Bld) 5.8 % Normal . [facility] Comment on above: Performed By: #### C BC, CMP, PAB #### [facility] [address] Erythrocyte distribution width (RBC) [Ratio] 14.3 % Normal 11.9-15.3 [facility] Comment on above: Performed By: #### C BC, CMP, PAB #### [facility] [address] Hematocrit (Bld) [Volume fraction] 36.0 % Normal 34.0-46.4 [facility] Comment on above: Performed By: #### C BC, CMP, PAB #### [facility] [address] [place] [address] [place] Hemoglobin (Bld) [Mass/Vol] 11.9 g/dL Normal 11.8-15.4 [facility] Comment on above: Performed By: #### C BC, CMP, PAB #### [facility] [address] Lymphocytes (Bld) [#/Vol] 2.7 10*3/uL Normal 1.00-4.8 [facility] Comment on above: Performed By: #### C BC, CMP, PAB #### [facility] [address] Lymphocytes/100 WBC (Bld) 37.6 % Normal . [facility] Comment on above: Performed By: #### C BC, CMP, PAB #### [facility] [address] MCH (RBC) [Entitic mass] 28.1 pg Normal 24.7-34.3 [facility] Comment on above: Performed By: #### C BC, CMP, PAB #### [facility] [address] [place] [address] [place] MCV (RBC) [Entitic vol] 85.3 fL Normal 80-100 [facility] Comment on above: Performed By: #### C BC, CMP, PAB #### [facility] [address] Mean Corpuscular HGB Conc 32.9 g/dL Normal 32.0-35.0 [facility] Comment on above: Performed By: #### C BC, CMP, PAB #### [facility] [address] [place] [address] [place] Monocytes (Bld) [#/Vol] 0.4 10*3/uL Normal 0.0-0.8 [facility] Comment on above: Performed By: #### C BC, CMP, PAB #### [facility] [address] [place] [address] [place] Monocytes/100 WBC (Bld) 5.2 % Normal . [facility] Comment on above: Performed By: #### C BC, CMP, PAB #### [facility] [address] [place] [address] [place] Neutrophils (Bld) [#/Vol] 3.7 10*3/uL Normal 1.8-7.7 [facility] Comment on above: Performed By: #### C BC, CMP, PAB #### [facility] [address] Neutrophils/100 WBC (Bld) 50.6 % Normal . [facility] Comment on above: Performed By: #### C BC, CMP, PAB #### [facility] [address] Nucleated RBC/100 WBC (Bld) [Ratio] 0.0 % Normal 0-0.5 [facility] Comment on above: Performed By: #### C BC, CMP, PAB #### [facility] [address] Platelet mean volume (Bld) [Entitic vol] 7.6 fL Normal 6.3-10.7 [facility] Comment on above: Performed By: #### C BC, CMP, PAB #### [facility] [address] [place] [address] [place] Platelets (Bld) [#/Vol] 252 10*3/uL Normal 150-450 [facility] Comment on above: Performed By: #### C BC, CMP, PAB #### [facility] [address] [place] [address] [place] RBC (Bld) [#/Vol] 4.22 10*6/uL Normal 3.60-5.00 [facility] Comment on above: Performed By: #### C BC, CMP, PAB #### [facility] [address] [place] [address] [place] WBC (Bld) [#/Vol] 7.2 10*3/uL Normal 4.5-11.0 [facility] Comment on above: Performed By: #### C BC, CMP, PAB #### [place] [address] [place] Ammoniaon 11-11-2021 Ammonia (P) [Moles/Vol] 26 umol/L Normal 11-35 [facility] Comment on above: Result Comment: PERF ORMED BY: [place] [address] PATHOLOGIST [employer]GER HUY COX M.D. Performed By: #### C BC, CMP, PAB #### [facility] [address] [place] [address] Hepatic Panelon 11-11-2021 Albumin [Mass/Vol] 3.0 g/dL Low 3.2-5.5 [facility] Comment on above: Performed By: #### C BC, CMP, PAB #### [address] Albumin/Globulin [Mass ratio] 1.0 {ratio} Normal [facility] Comment on above: Performed By: #### C BC, CMP, PAB #### [address] ALP [Catalytic activity/Vol] 187 U/L High 32-92 [facility] Comment on above: Result Comment: PERF ORMED BY: [place] [address] PATHOLOGIST [employer]IOR FINANCE MANAGER HUY COX M.D. Performed By: #### C BC, CMP, PAB #### [address] ALT [Catalytic activity/Vol] 54 U/L Normal 10-60 [facility] Comment on above: Performed By: #### C BC, CMP, PAB #### [address] AST [Catalytic activity/Vol] 39 U/L Normal 10-42 [facility] Comment on above: Performed By: #### C BC, CMP, PAB #### [address] Bilirubin [Mass/Vol] 0.3 mg/dL Normal 0.3-1.2 [facility] Comment on above: Performed By: #### C BC, CMP, PAB #### [facility] [address] Bilirubin,Indirect Not performed Normal [facility] Comment on above: Performed By: #### C BC, CMP, PAB #### [facility] [address] Bilirubin.indirect [Mass/Vol] mg/dL Normal 0.0-0.4 [facility] Comment on above: Performed By: #### C BC, CMP, PAB #### [facility] [address] [place] [address] Globulin (S) [Mass/Vol] 3.0 g/dL Normal [facility] Comment on above: Performed By: #### C BC, CMP, PAB #### [address] Protein [Mass/Vol] 6.0 g/dL Low 6.1-7.9 [facility] Comment on above: Performed By: #### C BC, CMP, PAB #### [address] Hepatitis Acute Panelon 03-0 HBsAg Screen Negative Normal Negative [facility] Comment on above: Performed By: #### C BC, CMP, PAB #### [address] Hepatitis A Antibody IgM Negative Normal Negative [facility] Comment on above: Performed By: #### C BC, CMP, PAB #### [facility] [address] [place] [address] Hepatitis B Core Antibody IgM Negative Normal Negative [facility] Comment on above: Performed By: #### C BC, CMP, PAB #### [facility] [address] [place] [address] Hepatitis C Virus Antibody 0.2 Normal 0.0-0.9 [facility] Comment on above: Performed By: #### C BC, CMP, PAB #### [facility] [address] [place] [address] Interpretation Hepatitis C Normal . [facility] Comment on above: Result Comment: Nega tive Not infected with HCV, unless recent infection is suspected or other evidence exists to indicate HCV infection. Performed at: - [facility] [address] [id number] Barrel Assembler: Pedro Luis José PhD, Phone: [phone] PERFORMED BY: [place] [address] PATHOLOGIST SENIOR FINANCE MANAGER HUY COX M.D. Performed By: #### C BC, CMP, PAB #### [address] US liveron 11-11-2021 liver [facility] Main [place] [address] [place] [address] Ultrasound Report Signed Patient: Morales Lee MR#: [id number] : 1975 Acct:[id number] Age/Sex: 46 / F ADM Date: 10/29/21 Loc: Room: [address] [place] [address] Type: ADM IN Attending Dr: Richard Acevedo [...] Alexandru Pond M.D.11/11/2021 10:23 AM Dictation Location: [place] [address] Tech: Ermelinda Diaz Transcribed By: PWS 11/11/21 1023 Dictated By: Alexandru Pond DO 11/11/21 1018 Signed By: 11/11/21 1023 Normal [facility] Complete Blood Count Auto Di ffon 11-10-2021 Basophils (Bld) [#/Vol] 0.1 10*3/uL Normal 0.0-0.2 [facility] Comment on above: Result Comment: PERF ORMED BY: [place] [address] PATHOLOGIST SENIOR FINANCE MANAGER HUY COX M.D. Performed By: #### C BC #### [address] Basophils/100 WBC (Bld) 1.2 % Normal . [facility] Comment on above: Performed By: #### C BC #### [address] Eosinophils (Bld) [#/Vol] 0.3 10*3/uL Normal 0.0-0.45 [facility] Comment on above: Performed By: #### C BC #### [address] Eosinophils/100 WBC (Bld) 5.9 % Normal . [facility] Comment on above: Performed By: #### C BC #### [address] Erythrocyte distribution width (RBC) [Ratio] 14.2 % Normal 11.9-15.3 [facility] Comment on above: Performed By: #### C BC #### [address] Hematocrit (Bld) [Volume fraction] 37.1 % Normal 34.0-46.4 [facility] Comment on above: Performed By: #### C BC #### [address] Hemoglobin (Bld) [Mass/Vol] 12.3 g/dL Normal 11.8-15.4 [facility] Comment on above: Performed By: #### C BC #### [address] Lymphocytes (Bld) [#/Vol] 2.0 10*3/uL Normal 1.00-4.8 [facility] Comment on above: Performed By: #### C BC #### [address] Lymphocytes/100 WBC (Bld) 36.5 % Normal . [facility] Comment on above: Performed By: #### C BC #### [address] MCH (RBC) [Entitic mass] 28.6 pg Normal 24.7-34.3 [facility] Comment on above: Performed By: #### C BC #### [address] MCV (RBC) [Entitic vol] 86.5 fL Normal 80-100 [facility] Comment on above: Performed By: #### C BC #### [address] Mean Corpuscular HGB Conc 33.1 g/dL Normal 32.0-35.0 [facility] Comment on above: Performed By: #### C BC #### [address] Monocytes (Bld) [#/Vol] 0.3 10*3/uL Normal 0.0-0.8 [facility] Comment on above: Performed By: #### C BC #### [address] Monocytes/100 WBC (Bld) 5.3 % Normal . [facility] Comment on above: Performed By: #### C BC #### [place] [address] [place] Neutrophils (Bld) [#/Vol] 2.8 10*3/uL Normal 1.8-7.7 [facility] Comment on above: Performed By: #### C BC #### [place] [address] [place] Neutrophils/100 WBC (Bld) 51.1 % Normal . [facility] Comment on above: Performed By: #### C BC #### [address] Nucleated RBC/100 WBC (Bld) [Ratio] 0.1 % Normal 0-0.5 [facility] Comment on above: Performed By: #### C BC #### [address] Platelet mean volume (Bld) [Entitic vol] 7.8 fL Normal 6.3-10.7 [facility] Comment on above: Performed By: #### C BC #### [address] Platelets (Bld) [#/Vol] 214 10*3/uL Normal 150-450 [facility] Comment on above: Performed By: #### C BC #### [address] RBC (Bld) [#/Vol] 4.28 10*6/uL Normal 3.60-5.00 [facility] Comment on above: Performed By: #### C BC #### [address] WBC (Bld) [#/Vol] 5.4 10*3/uL Normal 4.5-11.0 [facility] Comment on above: Performed By: #### C BC #### [address] Comprehensive Metabolic Pane shree 11-10-2021 Albumin [Mass/Vol] 2.9 g/dL Low 3.2-5.5 [facility] Comment on above: Performed By: #### C BC, CMP, PAB #### [address] Albumin/Globulin [Mass ratio] 0.9 {ratio} Normal [facility] Comment on above: Performed By: #### C BC, CMP, PAB #### [address] ALP [Catalytic activity/Vol] 201 U/L High 32-92 [facility] Comment on above: Performed By: #### C BC, CMP, PAB #### [facility] [address] [place] [id number] [facility] ALT [Catalytic activity/Vol] 67 U/L High 10-60 [facility] Comment on above: Performed By: #### C BC, CMP, PAB #### [facility] [address] [place] [phone] [facility] AST [Catalytic activity/Vol] 66 U/L High 10-42 [facility] Comment on above: Performed By: #### C BC, CMP, PAB #### [facility] [address] [place] [phone] [facility] Bilirubin [Mass/Vol] 0.4 mg/dL Normal 0.3-1.2 [facility] Comment on above: Performed By: #### C BC, CMP, PAB #### [facility] [address] Calcium [Mass/Vol] 8.7 mg/dL Normal 8.2-10.2 [facility] Comment on above: Performed By: #### C BC, CMP, PAB #### [facility] [address] [place] [address] [place] Chloride [Moles/Vol] 100 mmol/L Normal 95-114 [facility] Comment on above: Performed By: #### C BC, CMP, PAB #### [facility] [address] [place] [address] [place] CO2 [Moles/Vol] 26.4 mmol/L Normal 22.0-30.0 [facility] Comment on above: Performed By: #### C BC, CMP, PAB #### [facility] [address] [place] [phone] [place] Creatinine [Mass/Vol] 0.50 mg/dL Normal 0.44-1.03 [facility] Comment on above: Performed By: #### C BC, CMP, PAB #### [facility] [address] [place] [phone] [place] Creatinine Clr Calc Pharmacy 142.11 Normal [facility] Comment on above: Result Comment: PERF ORMED BY: [place] [address] PATHOLOGIST SENIOR FINANCE MANAGER HUY COX M.D. Performed By: #### C BC, CMP, PAB #### [facility] [address] Estimated GFR ( July > 60 [facility] Comment on above: Result Comment: GFR estimated reference range: According to KDOQI guidelines, <60 ml/min/1.73m2 is sufficient to diagnose a patient with chronic kidney disease. Performed By: #### C BC, CMP, PAB #### [facility] [address] Estimated GFR (Non- Am > 60 [facility] Comment on above: Performed By: #### C BC, CMP, PAB #### [address] Globulin (S) [Mass/Vol] 3.1 g/dL [facility] Comment on above: Performed By: #### C BC, CMP, PAB #### [facility] [address] Glucose [Mass/Vol] 110 mg/dL High 70-100 [facility] Comment on above: Result Comment: [place] Glucose Reference Range is dependent on time and content of last meal. Glucose of more than 200 mg/dL in a nonstressed, ambulatory subject supports the diagnosis of Diabetes Mellitus. ADA recommended reference range Performed By: #### C BC, CMP, PAB #### [address] Potassium [Moles/Vol] 4.0 mmol/L Normal 3.5-5.1 [facility] Comment on above: Performed By: #### C BC, CMP, PAB #### [facility] [address] Protein [Mass/Vol] 6.0 g/dL Low 6.1-7.9 [facility] Comment on above: Performed By: #### C BC, CMP, PAB #### [facility] [address] [place] [phone] [place] Sodium [Moles/Vol] 136 mmol/L Normal 136-146 [facility] Comment on above: Performed By: #### C BC, CMP, PAB #### [facility] [address] [place] [phone] [place] Urea nitrogen [Mass/Vol] 8 mg/dL Low 9-23 [facility] Comment on above: Performed By: #### C BC, CMP, PAB #### [facility] [address] [place] [address] [place] Dipstick and Microscopicon 0 11-10-2021 Appearance (U) Turbid Critically abnormal Clear [facility] Comment on above: Order Comment: Name Collection Type:: Alvares Catheter Performed By: #### C BC, CMP, PAB #### [facility] [address] [place] [address] [place] Bacteria,Urine 3+ High None Seen [facility] Comment on above: Order Comment: Name Collection Type:: Alvares Catheter Performed By: #### C BC, CMP, PAB #### [facility] [address] [place] [address] [place] Bilirubin,Urine Negative Normal Negative [facility] Comment on above: Order Comment: Name Collection Type:: Alvares Catheter Performed By: #### C BC, CMP, PAB #### [facility] [address] [place] [phone] [place] Color (U) Yellow Normal Yellow [facility] Comment on above: Order Comment: Name Collection Type:: Alvares Catheter Performed By: #### C BC, CMP, PAB #### [facility] [address] [place] [phone] [place] Glucose Ql (U) Normal Normal Normal [facility] Comment on above: Order Comment: Name Collection Type:: Alvares Catheter Performed By: #### C BC, CMP, PAB #### [facility] [address] [place] [address] [place] Hyaline Casts,Urine None Seen Normal 0-1 [facility] Comment on above: Order Comment: Name Collection Type:: Alvares Catheter Performed By: #### C BC, CMP, PAB #### [facility] [address] [place] [address] [place] Ketones Ql (U) Negative Normal Negative [facility] Comment on above: Order Comment: Name Collection Type:: Alvares Catheter Performed By: #### C BC, CMP, PAB #### [facility] [address] Leukocyte esterase Test strip Ql (U) 3+ High Negative [facility] Comment on above: Order Comment: Name Collection Type:: Alvares Catheter Performed By: #### C BC, CMP, PAB #### [address] Nitrite,Urine Positive High Negative [facility] Comment on above: Order Comment: Name Collection Type:: Alvares Catheter Performed By: #### C BC, CMP, PAB #### [address] Occult Blood,Urine 2+ High Negative [facility] Comment on above: Order Comment: Name Collection Type:: Alvares Catheter Result Comment: PERF ORMED BY: [place] [address] PATHOLOGIST SENIOR FINANCE MANAGER HUY COX M.D. Performed By: #### C BC, CMP, PAB #### [address] Other Casts,Urine None Seen Normal None Seen [facility] Comment on above: Order Comment: Name Collection Type:: Alvares Catheter Result Comment: PERF ORMED BY: [place] [address] PATHOLOGIST SENIOR FINANCE MANAGER HUY COX M.D. Performed By: #### C BC, CMP, PAB #### [facility] [address] [place] [address] [place] pH (U) 8.5 [pH] Normal 5.0-9.0 [facility] Comment on above: Order Comment: Name Collection Type:: Alvares Catheter Performed By: #### C BC, CMP, PAB #### [facility] [address] [place] [address] [place] Protein,Urine Negative Normal Negative [facility] Comment on above: Order Comment: Name Collection Type:: Alvares Catheter Performed By: #### C BC, CMP, PAB #### [facility] [address] [place] [address] RBC,Urine 1-2 Normal 0-4 [facility] Comment on above: Order Comment: Name Collection Type:: Alvares Catheter Performed By: #### C BC, CMP, PAB #### [address] Specificy [place],Urine 1.006 Normal 1.001-1.030 [facility] Comment on above: Order Comment: Name Collection Type:: Alvares Catheter Performed By: #### C BC, CMP, PAB #### [address] Squamous Epithelial Cell,Urine 3-4 High 0-2 [facility] Comment on above: Order Comment: Name Collection Type:: Alvares Catheter Performed By: #### C BC, CMP, PAB #### [address] Triple Phosphate Crystal,Urine 2+ Normal [facility] Comment on above: Order Comment: Name Collection Type:: Alvares Catheter Performed By: #### C BC, CMP, PAB #### [address] Urobilinogen,Urine Normal Normal Normal [facility] Comment on above: Order Comment: Name Collection Type:: Alvares Catheter Performed By: #### C BC, CMP, PAB #### [facility] [address] [place] [address] [place] WBC,Urine 20-49 High 0-4 [facility] Comment on above: Order Comment: Name Collection Type:: Alavres Catheter Performed By: #### C BC, CMP, PAB #### [facility] [address] [place] [address] Urine Cultureon 11-10-2021 Bacteria identified Cx Nom (U) ORGANISM: Providencia rettgeri (O:PRORET) [place] Count >100,000 Aerobic JOSE Charge (NUC86) SUSCEPTIBILITY [...] RESISTANT TO ALL B-LACTAM DRUGS. PERFORMED BY: [place] [address] PATHOLOGIST SENIOR FINANCE MANAGER HUY COX M.D. [facility] Comment on above: Performed By: #### C BC, CMP, PAB #### [address] Basic Metabolic Panelon 03-0 Calcium [Mass/Vol] 8.7 mg/dL Normal 8.2-10.2 [facility] Comment on above: Performed By: #### B MP, CBC #### [place] [address] [place] Chloride [Moles/Vol] 102 mmol/L Normal 95-114 [facility] Comment on above: Performed By: #### B MP, CBC #### [place] [address] [place] CO2 [Moles/Vol] 25.5 mmol/L Normal 22.0-30.0 [facility] Comment on above: Performed By: #### B MP, CBC #### [address] Creatinine [Mass/Vol] 0.71 mg/dL Normal 0.44-1.03 [facility] Comment on above: Performed By: #### B MP, CBC #### [address] Creatinine Clr Calc Pharmacy 100.08 [facility] Comment on above: Result Comment: PERF ORMED BY: [place] [address] PATHOLOGIST SENIOR FINANCE MANAGER HUY COX M.D. Performed By: #### B MP, CBC #### [address] Estimated GFR ( July > 60 [facility] Comment on above: Result Comment: GFR estimated reference range: According to KDOQI guidelines, <60 ml/min/1.73m2 is sufficient to diagnose a patient with chronic kidney disease. Performed By: #### B MP, CBC #### [address] Estimated GFR (Non- Am > 60 [facility] Comment on above: Performed By: #### B MP, CBC #### [address] Glucose [Mass/Vol] 104 mg/dL High 70-100 [facility] Comment on above: Result Comment: [place] Glucose Reference Range is dependent on time and content of last meal. Glucose of more than 200 mg/dL in a nonstressed, ambulatory subject supports the diagnosis of Diabetes Mellitus. ADA recommended reference range Performed By: #### B MP, CBC #### [address] Potassium [Moles/Vol] 4.1 mmol/L Normal 3.5-5.1 [facility] Comment on above: Performed By: #### B MP, CBC #### [address] Sodium [Moles/Vol] 137 mmol/L Normal 136-146 [facility] Comment on above: Performed By: #### B MP, CBC #### [address] Urea nitrogen [Mass/Vol] 10 mg/dL Normal 9-23 [facility] Comment on above: Performed By: #### B MP, CBC #### [address] Complete Blood Count Auto Di ffon 11-06-2021 Basophils (Bld) [#/Vol] 0.1 10*3/uL Normal 0.0-0.2 [facility] Comment on above: Result Comment: PERF ORMED BY: [place] [address] PATHOLOGIST SENIOR FINANCE MANAGER HUY COX M.D. Performed By: #### B MP, CBC #### [address] Basophils/100 WBC (Bld) 0.8 % Normal . [facility] Comment on above: Performed By: #### B MP, CBC #### [address] Eosinophils (Bld) [#/Vol] 0.4 10*3/uL Normal 0.0-0.45 [facility] Comment on above: Performed By: #### B MP, CBC #### [address] Eosinophils/100 WBC (Bld) 5.5 % Normal . [facility] Comment on above: Performed By: #### B MP, CBC #### [address] Erythrocyte distribution width (RBC) [Ratio] 14.2 % Normal 11.9-15.3 [facility] Comment on above: Performed By: #### B MP, CBC #### [address] Hematocrit (Bld) [Volume fraction] 36.0 % Normal 34.0-46.4 [facility] Comment on above: Performed By: #### B MP, CBC #### [facility] [address] Hemoglobin (Bld) [Mass/Vol] 12.0 g/dL Normal 11.8-15.4 [facility] Comment on above: Performed By: #### B MP, CBC #### [facility] [address] Lymphocytes (Bld) [#/Vol] 2.4 10*3/uL Normal 1.00-4.8 [facility] Comment on above: Performed By: #### B MP, CBC #### [address] Lymphocytes/100 WBC (Bld) 35.2 % Normal . [facility] Comment on above: Performed By: #### B MP, CBC #### [address] MCH (RBC) [Entitic mass] 28.9 pg Normal 24.7-34.3 [facility] Comment on above: Performed By: #### B MP, CBC #### [address] MCV (RBC) [Entitic vol] 86.4 fL Normal 80-100 [facility] Comment on above: Performed By: #### B MP, CBC #### [address] Mean Corpuscular HGB Conc 33.4 g/dL Normal 32.0-35.0 [facility] Comment on above: Performed By: #### B MP, CBC #### [place] [address] [place] Monocytes (Bld) [#/Vol] 0.3 10*3/uL Normal 0.0-0.8 [facility] Comment on above: Performed By: #### B MP, CBC #### [place] [address] [place] Monocytes/100 WBC (Bld) 4.8 % Normal . [facility] Comment on above: Performed By: #### B MP, CBC #### [facility] [address] [place] [address] [place] Neutrophils (Bld) [#/Vol] 3.7 10*3/uL Normal 1.8-7.7 [facility] Comment on above: Performed By: #### B MP, CBC #### [facility] [address] [place] [address] [place] Neutrophils/100 WBC (Bld) 53.7 % Normal . [facility] Comment on above: Performed By: #### B MP, CBC #### [facility] [address] [place] [address] [place] Nucleated RBC/100 WBC (Bld) [Ratio] 0.0 % Normal 0-0.5 [facility] Comment on above: Performed By: #### B MP, CBC #### [facility] [address] [place] [address] [place] Platelet mean volume (Bld) [Entitic vol] 8.2 fL Normal 6.3-10.7 [facility] Comment on above: Performed By: #### B MP, CBC #### [facility] [address] [place] [address] [place] Platelets (Bld) [#/Vol] 235 10*3/uL Normal 150-450 [facility] Comment on above: Performed By: #### B MP, CBC #### [facility] [address] [place] [address] [place] RBC (Bld) [#/Vol] 4.17 10*6/uL Normal 3.60-5.00 [facility] Comment on above: Performed By: #### B MP, CBC #### [facility] [address] [place] [address] [place] WBC (Bld) [#/Vol] 6.9 10*3/uL Normal 4.5-11.0 [facility] Comment on above: Performed By: #### B MP, CBC #### [facility] [address] [place] [address] [place] US venous duplex LE BIon US venous duplex LE BI [facility] Main [place] [address] [place] [address] Ultrasound Report Signed Patient: Morales Lee MR#: [id number] : 1975 Acct:[id number] Age/Sex: 46 / F ADM Date: 10/29/21 Loc: Room: [address] [place] [address] Type: ADM IN Attending Dr: Richard Acevedo [...] Carlos Neal MD11/04/2021 11:36 AM Dictation Location: [place] [address] Tech: Natalia Rivas Transcribed By: CORTNEY 11/04/21 1136 Dictated By: Juan Carlos Neal MD 11/04/21 1135 Signed By: 11/04/21 1136 Normal [facility] Complete Blood Count Auto Di ffon 10-30-2021 Basophils (Bld) [#/Vol] 0.0 10*3/uL Normal 0.0-0.2 [facility] Comment on above: Result Comment: PERF ORMED BY: [place] [address] PATHOLOGIST SENIOR FINANCE MANAGER HUY COX M.D. Performed By: #### C DARIUS PATEL, PAB #### [address] Basophils/100 WBC (Bld) 0.6 % Normal . [facility] Comment on above: Performed By: #### C JORGE, CMP, PAB #### [facility] [address] [place] [address] [place] Eosinophils (Bld) [#/Vol] 0.4 10*3/uL Normal 0.0-0.45 [facility] Comment on above: Performed By: #### C BC, CMP, PAB #### [facility] [address] Eosinophils/100 WBC (Bld) 4.9 % Normal . [facility] Comment on above: Performed By: #### C BC, CMP, PAB #### [address] Erythrocyte distribution width (RBC) [Ratio] 14.3 % Normal 11.9-15.3 [facility] Comment on above: Performed By: #### C BC, CMP, PAB #### [address] Hematocrit (Bld) [Volume fraction] 36.1 % Normal 34.0-46.4 [facility] Comment on above: Performed By: #### C BC, CMP, PAB #### [address] Hemoglobin (Bld) [Mass/Vol] 12.1 g/dL Normal 11.8-15.4 [facility] Comment on above: Performed By: #### C BC, CMP, PAB #### [place] [address] [place] Lymphocytes (Bld) [#/Vol] 2.8 10*3/uL Normal 1.00-4.8 [facility] Comment on above: Performed By: #### C BC, CMP, PAB #### [place] [address] [place] Lymphocytes/100 WBC (Bld) 39.0 % Normal . [facility] Comment on above: Performed By: #### C BC, CMP, PAB #### [address] MCH (RBC) [Entitic mass] 28.7 pg Normal 24.7-34.3 [facility] Comment on above: Performed By: #### C BC, CMP, PAB #### [facility] [address] MCV (RBC) [Entitic vol] 85.7 fL Normal 80-100 [facility] Comment on above: Performed By: #### C BC, CMP, PAB #### [facility] [address] Mean Corpuscular HGB Conc 33.4 g/dL Normal 32.0-35.0 [facility] Comment on above: Performed By: #### C BC, CMP, PAB #### [facility] [address] Monocytes (Bld) [#/Vol] 0.4 10*3/uL Normal 0.0-0.8 [facility] Comment on above: Performed By: #### C BC, CMP, PAB #### [facility] [address] Monocytes/100 WBC (Bld) 5.2 % Normal . [facility] Comment on above: Performed By: #### C BC, CMP, PAB #### [facility] [address] [place] [address] [place] Neutrophils (Bld) [#/Vol] 3.6 10*3/uL Normal 1.8-7.7 [facility] Comment on above: Performed By: #### C BC, CMP, PAB #### [facility] [address] [place] [address] [place] Neutrophils/100 WBC (Bld) 50.3 % Normal . [facility] Comment on above: Performed By: #### C BC, CMP, PAB #### [facility] [address] [place] [address] [place] Nucleated RBC/100 WBC (Bld) [Ratio] 0.0 % Normal 0-0.5 [facility] Comment on above: Performed By: #### C BC, CMP, PAB #### [facility] [address] Platelet mean volume (Bld) [Entitic vol] 8.1 fL Normal 6.3-10.7 [facility] Comment on above: Performed By: #### C BC, CMP, PAB #### [facility] [address] Platelets (Bld) [#/Vol] 261 10*3/uL Normal 150-450 [facility] Comment on above: Performed By: #### C BC, CMP, PAB #### [address] RBC (Bld) [#/Vol] 4.22 10*6/uL Normal 3.60-5.00 [facility] Comment on above: Performed By: #### C BC, CMP, PAB #### [address] WBC (Bld) [#/Vol] 7.2 10*3/uL Normal 4.5-11.0 [facility] Comment on above: Performed By: #### C BC, CMP, PAB #### [address] Comprehensive Metabolic Pane shree 10-30-2021 Albumin [Mass/Vol] 2.8 g/dL Low 3.2-5.5 [facility] Comment on above: Performed By: #### C BC, CMP, PAB #### [address] Albumin/Globulin [Mass ratio] 1.0 {ratio} Normal [facility] Comment on above: Performed By: #### C BC, CMP, PAB #### [address] ALP [Catalytic activity/Vol] 116 U/L High 32-92 [facility] Comment on above: Performed By: #### C BC, CMP, PAB #### [address] ALT [Catalytic activity/Vol] 20 U/L Normal 10-60 [facility] Comment on above: Performed By: #### C BC, CMP, PAB #### [address] AST [Catalytic activity/Vol] 22 U/L Normal 10-42 [facility] Comment on above: Performed By: #### C BC, CMP, PAB #### [facility] [address] Bilirubin [Mass/Vol] 0.5 mg/dL Normal 0.3-1.2 [facility] Comment on above: Performed By: #### C BC, CMP, PAB #### [facility] [address] Calcium [Mass/Vol] 8.7 mg/dL Normal 8.2-10.2 [facility] Comment on above: Performed By: #### C BC, CMP, PAB #### [address] Chloride [Moles/Vol] 105 mmol/L Normal 95-114 [facility] Comment on above: Performed By: #### C BC, CMP, PAB #### [address] CO2 [Moles/Vol] 26.8 mmol/L Normal 22.0-30.0 [facility] Comment on above: Performed By: #### C BC, CMP, PAB #### [address] Creatinine [Mass/Vol] 0.51 mg/dL Normal 0.44-1.03 [facility] Comment on above: Performed By: #### C BC, CMP, PAB #### [facility] [address] [place] [address] [place] Creatinine Clr Calc Pharmacy 123.73 [facility] Comment on above: Performed By: #### C BC, CMP, PAB #### [address] Estimated GFR ( Juyl > 60 [facility] Comment on above: Result Comment: GFR estimated reference range: According to KDOQI guidelines, <60 ml/min/1.73m2 is sufficient to diagnose a patient with chronic kidney disease. Performed By: #### C BC, CMP, PAB #### [place] [id number] [place] Estimated GFR (Non- Am > 60 Normal [facility] Comment on above: Performed By: #### C BC, CMP, PAB #### [facility] [address] Globulin (S) [Mass/Vol] 2.8 g/dL Normal [facility] Comment on above: Performed By: #### C BC, CMP, PAB #### [address] Glucose [Mass/Vol] 115 mg/dL High 70-100 [facility] Comment on above: Result Comment: [facility] Glucose Reference Range is dependent on time and content of last meal. Glucose of more than 200 mg/dL in a nonstressed, ambulatory subject supports the diagnosis of Diabetes Mellitus. ADA recommended reference range Performed By: #### C BC, CMP, PAB #### [address] Potassium [Moles/Vol] 3.7 mmol/L Normal 3.5-5.1 [facility] Comment on above: Performed By: #### C BC, CMP, PAB #### [address] Protein [Mass/Vol] 5.6 g/dL Low 6.1-7.9 [facility] Comment on above: Performed By: #### C BC, CMP, PAB #### [address] Sodium [Moles/Vol] 140 mmol/L Normal 136-146 [facility] Comment on above: Performed By: #### C BC, CMP, PAB #### [facility] [address] [place] [address] Urea nitrogen [Mass/Vol] 7 mg/dL Low 9-23 [facility] Comment on above: Performed By: #### C BC, CMP, PAB #### [place] [address] [place] Dipstick and Microscopicon 0 10-30-2021 Appearance (U) Clear Normal Clear [facility] Comment on above: Order Comment: Name Collection Type:: Voided Performed By: #### A DDONUAPLUS, CUU #### [facility] [address] [place] [address] [place] Bacteria,Urine 4+ High None Seen [facility] Comment on above: Order Comment: Name Collection Type:: Voided Performed By: #### A DDONUAPLUS, CUU #### [facility] [address] [place] [address] [place] Bilirubin,Urine Negative Normal Negative [facility] Comment on above: Order Comment: Name Collection Type:: Voided Performed By: #### A DDONUAPLUS, CUU #### [place] [address] [place] Color (U) Yellow Normal Yellow [facility] Comment on above: Order Comment: Name Collection Type:: Voided Performed By: #### A DDONUAPLUS, CUU #### [facility] [address] [place] [address] [place] Glucose Ql (U) Normal Normal Normal [facility] Comment on above: Order Comment: Name Collection Type:: Voided Performed By: #### A DDONUAPLUS, CUU #### [place] [address] [place] Hyaline Casts,Urine 0-8 Normal 0-8 [facility] Comment on above: Order Comment: Name Collection Type:: Voided Result Comment: PERF ORMED BY: [place] [address] PATHOLOGIST SENIOR FINANCE MANAGER HUY COX M.D. Performed By: #### A DDONUAPLUS, CUU #### [facility] [address] [place] [address] [place] Ketones Ql (U) Negative Normal Negative [facility] Comment on above: Order Comment: Name Collection Type:: Voided Performed By: #### A DDONUAPLUS, CUU #### [facility] [address] [place] [address] [place] Leukocyte esterase Test strip Ql (U) 3+ High Negative [facility] Comment on above: Order Comment: Name Collection Type:: Voided Performed By: #### A DDONUAPLUS, CUU #### [place] [address] [place] Nitrite,Urine Positive High Negative [facility] Comment on above: Order Comment: Name Collection Type:: Voided Performed By: #### A DDONUAPLUS, CUU #### [place] [address] [place] Occult Blood,Urine Negative Normal Negative [facility] Comment on above: Order Comment: Name Collection Type:: Voided Result Comment: PERF ORMED BY: [place] [address] PATHOLOGIST SENIOR FINANCE MANAGER HUY COX M.D. Performed By: #### A DDONUAPLUS, CUU #### [address] pH (U) 5.5 [pH] Normal 5.0-9.0 [facility] Comment on above: Order Comment: Name Collection Type:: Voided Performed By: #### A DDONUAPLUS, CUU #### [place] [address] [place] Protein,Urine Negative Normal Negative [facility] Comment on above: Order Comment: Name Collection Type:: Voided Performed By: #### A DDONUAPLUS, CUU #### [place] [address] [place] RBC LM.HPF (Urine sed) [#/Area] 0 /[HPF] Normal 0-4 [facility] Comment on above: Order Comment: Name Collection Type:: Voided Performed By: #### A DDONUAPLUS, CUU #### [place] [address] [place] Specificy [place],Urine 1.012 Normal 1.001-1.030 [facility] Comment on above: Order Comment: Name Collection Type:: Voided Performed By: #### A DDONUAPLUS, CUU #### [place] [address] [place] Squamous Epithelial Cell,Urine 0-1 Normal 0-2 [facility] Comment on above: Order Comment: Name Collection Type:: Voided Performed By: #### A DDONUAPLUS, CUU #### [facility] [address] [place] [address] Urobilinogen,Urine Normal Normal Normal [facility] Comment on above: Order Comment: Name Collection Type:: Voided Performed By: #### A DDONUAPLUS, CUU #### [address] WBC,Urine 20-49 High 0-4 [facility] Comment on above: Order Comment: Name Collection Type:: Voided Performed By: #### A DDONUAPLUS, CUU #### [address] Prealbuminon 10-30-2021 Prealbumin [Mass/Vol] 13.1 mg/dL Low 18.0-38.0 [facility] Comment on above: Result Comment: PERF ORMED BY: [place] [address] PATHOLOGIST SENIOR FINANCE MANAGER HUY COX M.D. Performed By: #### C BC, CMP, PAB #### [address] Urine Cultureon 10-30-2021 Bacteria identified Cx Nom (U) ORGANISM: Escherichia coli (O:ESCCOL) [place] Count >100,000 Aerobic JOSE Charge (NUC86) SUSCEPTIBILITY [...] RESISTANT TO ALL B-LACTAM DRUGS. PERFORMED BY: [place] [address] PATHOLOGIST SENIOR FINANCE MANAGER HUY COX M.D. Normal [facility] Comment on above: Performed By: #### A FLAVIO, RUBIU #### [address] COVID-19 FRon 10-29-2021 SARS-CoV-2 (COVID-19) RNA ADRIÁN+probe Ql (Unsp spec) Negative Normal Negative [facility] Comment on above: Order Comment: Healt hcare Worker?: N Result Comment: Testing for SARS-CoV-2 by RT-PCR This test was developed and its performance characteristics determined by [employer] and validated at the [facility]. This test has not been [...] is terminated or revoked sooner. PERFORMED BY: [address] [place] [address] PATHOLOGIST SENIOR FINANCE MANAGER HUY COX M.D. Performed By: #### C OVID 19 [facility] #### [place] [id number] [facility] Clinical Event Note-Need for Hospital Bedon 10-02-2021 [...] of the lumbar region. Provider/Team Contact Info-Pager [phone] Electronic Signatures: Sharmin Guaman (MAINFRAME DEVELOPER-TALENT ACQUISITION CONSULTANT) (Signed 02-Oct-2021 15:19) Authored: Clinical Event Note Last Updated: 02-Oct-2021 15:19 by Sharmin Guaman (MAINFRAME DEVELOPER-TALENT ACQUISITION CONSULTANT) Normal [facility] Clinical Event Note-Need for wheel Chairon [...] home, can self propel or has a urgent care physician assistant to provide assistance. Provider/Team Contact Info-Pager [phone] Electronic Signatures: Sharmin Guaman (MAINFRAME DEVELOPER-TALENT ACQUISITION CONSULTANT) (Signed 02-Oct-2021 15:27) Authored: Clinical Event Note Last Updated: 02-Oct-2021 15:27 by Sharmin Guaman (MAINFRAME DEVELOPER-TALENT ACQUISITION CONSULTANT) Normal [facility] Daily Progress Note-Neurosur geryon 10-02-2021 Daily Progress Note-Neurosurgery Service: Neurosurgery Subjective Data: MORALES LEE is a 46 year old Female who is Hospital Day # 18 and POD #11 for posterior L4-L5 decompression;posterior L4-L5 arthrodesis. Objective Data: Objective Information: T PRBPSpO2 [id number]/8397% Date/Time10/02 1: 1: 1: 1:281/28 1:28 Range(36.2C [...] 2021 10:00 pm000 Oct 01, 2021 2:00 [id number] The Intake and Output Totals for the [...] the note. I personally evaluated the patient [id number] Electronic Signatures: Kenneth Philippe (Resident)) (Signed 02-Oct-2021 06:52) Authored: Service, Subjective Data, Objective Data, Assessment and Plan, Note Completion Lex Frederick) (Signed 02-Oct-2021 15:16) Authored: Note Completion Co-Signer: Service, Subjective Data, Objective Data, Assessment and Plan, Note Completion Last Updated: 02-Oct-2021 15:16 by Lex Frederick) [facility] Clinical Event Note-Discharg e discussionon 10-01-2021 Clinical [...] duration of trip. Electronic Signatures: Ambrocio Izaguirre (MAINFRAME DEVELOPER-TALENT ACQUISITION CONSULTANT) (Signed 01-Oct-2021 17:11) Authored: Clinical Event Note Last Updated: 01-Oct-2021 17:11 by Ambrocio Izaguirre (MAINFRAME DEVELOPER-TALENT ACQUISITION CONSULTANT) Normal [facility] Clinical Event Note-Need for hospital bedon [...] when lying flat. Electronic Signatures: Ambrocio Izaguirre (MAINFRAME DEVELOPER-TALENT ACQUISITION CONSULTANT) (Signed 01-Oct-2021 14:48) Authored: Clinical Event Note Last Updated: 01-Oct-2021 14:48 by Ambrocio Izaguirre (MAINFRAME DEVELOPER-TALENT ACQUISITION CONSULTANT) Normal [facility] Daily Progress Note-Neurosjudy leonidasgaurang 10-01-2021 Daily Progress Note-Neurosurgery Service: Neurosurgery Subjective Data: MORALES LEE is a 46 year old Female who is Hospital Day # 17 and POD #10 for posterior L4-L5 decompression;posterior L4-L5 arthrodesis. Objective Data: Objective Information: T PRBPSpO2 [id number]/7194% Date/Time10/01 0:381 0:381 0:381 0:381 0:38 Range(35.6C - 36.8C ) (64 - 96 ) (16 - 19 ) (94 - 138 )/ (59 - 83 ) (92% - 94% ) Pain reported at 09/30 9:00: 2 = Mild ---- Intake and Output ----- Mn/Dy/Year TimeIntakeOutputNet Sep 29, 2021 10:00 [id number] Sep 29, 2021 2:00 [id number] Sep 29, 2021 6:00 am000 The Intake [...] Updated: 01-Oct-2021 10:29 by Lex Frederick) Normal [facility] Daily Progress Note-Neurosurgery This report has been cancelled. Normal [facility] Daily Progress Note-Neurosjudy stearns 09-30-2021 Daily Progress Note-Neurosurgery Service: Neurosurgery Subjective Data: MORALES LEE is a 46 year old Female who is Hospital Day # 15 and POD #8 for posterior L4-L5 decompression;posterior L4-L5 arthrodesis. Objective Data: Objective Information: T PRBPSpO2 [id number]/7393% Date/Time09/29 16: 16: 16: 16: 16:00 Range(36C - 36.7C ) (67 - 86 ) (17 - 20 ) (94 - 153 )/ (15 - 113 ) (93% - 98% ) Pain reported at 09/29 9:56: 5 = Moderate ---- Intake and Output ----- Mn/Dy/Year TimeIntakeOutputNet Sep 29, 2021 2:00 [id number] Sep 29, 2021 6:00 am000 Sep 28, 2021 10:00 [id number] The Intake and Output Totals for the [...] the note. I personally evaluated the patient [id number] Electronic Signatures: Lex Frederick) (Signed 30-Sep-2021 11:18) Authored: Note Completion Co-Signer: Service, Subjective Data, Objective Data, Assessment and Plan, Note Completion Jaya Mosquera (Resident)) (Signed 30-Sep-2021 03:18) Authored: Service, Subjective Data, Objective Data, Assessment and Plan, Note Completion Last Updated: 30-Sep-2021 11:18 by Lex Frederick) [facility] Rehab Ocri-ov-exqkgknxi - co -tx /c OT to address multidiscipon 09-30-2021 Rehab Zrfx-wk-nwrbispia - co-tx /c OT to address multidiscip Rehab: Info: Disciplinephysical occupational therapy teacher Mode of Treatmentphysical therapy; co-treatment; co-tx /c OT to address multidisciplinary functional needs and maximize pt's safety. Time IN12:15 Time OUT12:55 Total Treatment [id number] Patient in ... at end of sessionbed, 3 railings up; alarm off; not on at start of visit Communicated with ... at end of sessionbedside nurse Patient Effortgood Symptoms Noted During/After Treatmentfatigue Treatment Considerations/CommentsExte nsive discussion /c amongst FITNESS AND WELLNESS DIRECTOR, OT, and pt regarding her current [...] rolling right; rolling left; scooting/bridging Roll Left Robertson (Bed Mobility)moderate assist (50% patient effort); 1 person assist; nonverbal cues (demo/gesture); verbal cues Roll Right Robertson (Bed Mobility)moderate assist (50% patient effort); 1 person assist; nonverbal cues (demo/gesture); verbal cues Scoot/Bridge Robertson (Bed Mobility)maximum assist (25% patient effort); 2 person assist; nonverbal cues (demo/gesture); verbal cues Bjizpu-ej-Nno Robertson (Bed Mobility)maximum assist (25% patient effort); 2 person assist; nonverbal cues (demo/gesture); verbal cues Mow-td-Ruiqjy Robertson (Bed Mobility)maximum assist (25% patient effort); 2 person assist; nonverbal cues (demo/gesture); verbal cues Assistive Device (Bed Mobility)bed rails; draw sheet Comment, Bed MobilityPt showing improvement in her ability to roll, performing 50% of AROM to achieve full rolling position. Transfer Assessment/Interventionssit to stand transfer; stand to sit transfer Comment, TransfersToday's session, OT and I utilized [employer] Stand device to assist pt into full [...] Pt repositioned back to sitting EOB. Sit-Stand Robertson (Transfers)dependent (less than 25% patient effort) Sit-Stand Assistive Device (Transfers)mechanical lift/aid Stand-Sit [place] (Transfers)dependent (less than 25% patient effort) Stand-Sit [...] Score8 Short Term Goals: Bed Mobility: Date [id number] Bed Mobility: Robertson Level Goalminimum assist (75% patients effort) Bed Mobility: Physical Assist Level Goal1-person assist, verbal cues Bed Mobility: Time Frame for Goal2 wks Transfer: Established [id number] Transfer: Transfer Type Kdblyxl-yc-xnsiq/chair-to-b ed; dfh-ts-sgomf/gwull-li-ans Transfer: Robertson Level Goalmoderate assist (50% patients effort) Transfer: Physical Assist Level Goal1-person assist; verbal cues Transfer: Assistive Device Goalrolling walker Transfer: Time Frame for Goal2 wks Gait: Established [id number] Gait: Robertson Level Goalmoderate assist (50% patients (more content not included)... [facility] Rehab Note-occupational therapy teacher apy - co-tx with PT to maximizeon 09-30-2021 Rehab Note-occupational therapy - co-tx with PT to maximize Rehab: Info: Disciplineoccupational therapist Mode of Treatmentoccupational therapy; co-tx with PT to maximize pt's mobility and safety. Time IN12:15 Time OUT12:55 Total Treatment [id number] Patient in ... at end of sessionbed, [...] ling right; rolling left; scooting/bridging Roll Left [place] (Bed Mobility)moderate assist (50% patient effort); 1 person assist; nonverbal cues (demo/gesture); verbal cues Roll Right [place] (Bed Mobility)moderate assist (50% patient effort); 1 person assist; nonverbal cues (demo/gesture); verbal cues Scoot/Bridge [place] (Bed Mobility)maximum assist (25% patient effort); 2 [...] lower body dressing; upper body dressing; bathing Robertson Level (Bathing)set up; verbal cues; moderate assist (50% patient effort); 1 person assist Comment (Bathing)anticipated due to impaired balance, strength, and pain. Robertson Level (Upper Body Dressing)set up; verbal cues; moderate assist (50% patient effort) Comment (Upper Body Dressing)anticipated due to impaired balance, strength, and pain. [place] Level (Lower Body Dressing)don; socks; dependent (less than 25% patient effort) Position (Lower Body Dressing)supine Robertson Level (Grooming)modified independence Comment (Grooming)Pt observed applying Orajel to gums, able to manage packaging, cap un/screwing, and application. Robertson Level (Feeding)modified independence Comment (Feeding)Pt able to retrieve OJ cup from tray table at R side, bring to mouth, and drink appropriately. [place] Level (Toileting)dependent (less than 25% patient effort); [...] Score15 Short Term Goals: Bed Mobility: Date [id number] Bed Mobility: [place] Level Goalcontact guard Bed Mobility: Physical Assist Level Goalset-up, verbal cues Bed Mobility: Time Frame for Goal2 wks Transfer: Established [id number] Transfer: Transfer Type Iblifrc-wl-suqvs/chair-to-b ed; bpy-wp-bcstg/jnzcg-cx-rjx; toilet Transfer: [place] Level Goalminimum assist (75% patients effort) Transfer: Physical Assist Level Goalset-up; verbal cues; 1-person assist Transfer: Assistive Device GoalLRD Transfer: Time Frame for Goal2 wks Balance: Established [id number] Balance: Goal DetailsPt will perform ADL while reaching outside MADDIE and returning self to midline >8 minutes with set-up assist, SBA, and minimal verbal cues for safety. Enrique (more content not included)... [facility] Daily Progress Note-Neurosur leonidasyon 09-29-2021 Daily Progress Note-Neurosurgery Service: Neurosurgery Subjective Data: MORALES LEE is a 46 year old Female who is Hospital Day # 14 and POD #7 for posterior L4-L5 decompression;posterior L4-L5 arthrodesis. Objective Data: Objective Information: T PRBPSpO2 [id number]% Date/Time09/28 4: 8: 8: 8: 8:00 Range(36C [...] 2021 6:00 am000 Sep 27, 2021 10:00 [id number] Sep 27, 2021 2:00 [id number] The Intake and Output Totals for the last 24 hours are: IntakeOutputNet [id number] Physical Exam by System: Neurological: A&Ox3 RUE [...] the note. I personally evaluated the patient [id number] Electronic Signatures: Lex Frederick) (Signed 29-Sep-2021 09:23) Authored: Note Completion Co-Signer: Service, Subjective Data, Objective Data, Assessment and Plan, Note Completion Jaya Mosquera (Resident)) (Signed 29-Sep-2021 03:01) Authored: Service, Subjective Data, Objective Data, Assessment and Plan, Note Completion Last Updated: 29-Sep-2021 09:23 by Lex Frederick) [facility] Rehab Nwdi-zr-zzzatjkfl - co -tx /c OT to address multidiscipon 09-29-2021 Rehab Brhc-cv-rdoqcsztr - co-tx /c OT to address multidiscip Rehab: Info: Disciplinephysical occupational therapy teacher Mode of Treatmentphysical therapy; co-treatment; co-tx /c OT to address multidisciplinary functional needs and maximize pt's safety. Time IN14:30 Time OUT15:40 Total Treatment [id number] Patient in ... at end of sessionbed, [...] to sit; sit to supine Roll Left Robertson (Bed Mobility)maximum assist (25% patient effort); 2 person assist; verbal cues; nonverbal cues (demo/gesture) Roll Right Robertson (Bed Mobility)maximum assist (25% patient effort); 2 person assist; verbal cues; nonverbal cues (demo/gesture) Scoot/Bridge Robertson (Bed Mobility)maximum assist (25% patient effort); 2 person assist; nonverbal cues (demo/gesture); verbal cues Fmgicf-nu-Ysp Robertson (Bed Mobility)maximum assist (25% patient effort); 2 person assist; nonverbal cues (demo/gesture); verbal cues Ctl-mx-Msjvry Robertson (Bed Mobility)verbal cues; nonverbal cues (demo/gesture); maximum [...] Pt repositioned back to sitting EOB. Sit-Stand [place] (Transfers)dependent (less than 25% patient effort) Sit-Stand Assistive Device (Transfers)mechanical lift/aid Stand-Sit [place] (Transfers)dependent (less than 25% patient effort) Stand-Sit [...] Score8 Short Term Goals: Bed Mobility: Date [id number] Bed Mobility: Robertson Level Goalminimum assist (75% patients effort) Bed Mobility: Physical Assist Level Goal1-person assist, verbal cues Bed Mobility: Time Frame for Goal2 wks Transfer: Established [id number] Transfer: Transfer Type Fwmiylu-kd-ezyvc/chair-to-b ed; gir-wd-nihuh/qzykw-ot-ewk Transfer: Robertson Level Goalmoderate assist (50% patients effort) Transfer: Physical Assist Level Goal1-person assist; verbal cues Transfer: Assistive Device Goalrolling walker Transfer: Time Frame for Goal2 wks Gait: Established [id number] Gait: Robertson Level Goalmoderate assist (50% patients effort) Gait: Physical Assist Level1-person assist; verbal cues Gait: Assistive Device Goalrolling walker Gait: Distance Goal15 feet Gait: Time Frame for Goal2 wks Balance: Established [id number] Balance: Goal DetailsSitting EOB 20 minutes with 0-1 UE support, SBA for static sitting, CGA for dynamic. Standing 1 minute with FWW and CGA Education: Learnerpatient Topicrehab plan of care; discharge recommendations including destination and/or equipment Outcome Summary: Progress: Physical Therapyprogress towards functional goals is fair Outcome (more content not included)... [facility] Rehab Note-occupational therapy teacher apy - co-tx with PT to maximizeon 09-29-2021 Rehab Note-occupational therapy - co-tx with PT to maximize Rehab: Info: Disciplineoccupational therapist Mode of Treatmentoccupational therapy; co-tx with PT to maximize pt's mobility and safety. Time IN14:30 Time OUT15:40 Total Treatment [id number] Patient in ... at end of sessionbed, [...] to sit; sit to supine Roll Left [place] (Bed Mobility)maximum assist (25% patient effort); 2 person assist; verbal cues; nonverbal cues (demo/gesture); multiple rolls to adjust harness Roll Right Robertson (Bed Mobility)maximum assist (25% patient effort); 2 person assist; verbal cues; nonverbal cues (demo/gesture); multiple rolls to adjust harness Scoot/Bridge Robertson (Bed Mobility)maximum assist (25% patient effort); 2 person assist; nonverbal cues (demo/gesture); verbal cues; boost HOB Jpfnuc-bh-Itz Robertson (Bed Mobility)maximum assist (25% patient effort); 2 person assist; nonverbal cues (demo/gesture); verbal cues Mwm-qh-Rkdcld Robertson (Bed Mobility)verbal cues; nonverbal cues (demo/gesture); maximum assist (25% patient effort); 2 person assist Assistive Device (Bed Mobility)draw sheet; bed rails Transfer Assessment/Interventionssit to stand transfer; stand to sit transfer Sit-Stand Robertson (Transfers)dependent (less than 25% patient effort) Sit-Stand Assistive Device (Transfers)mechanical lift/aid; Faye Plus Stand-Sit Robertson (Transfers)dependent (less than 25% patient effort) Stand-Sit Assistive Device (Transfers)mechanical lift/aid; Faye Plus Safety Issues Impacting Function (Mobility)awareness of need for assistance; insight into deficits/self awareness Impairments Impacting Function (Mobility)endurance/activit y tolerance; strength; balance; coordination; postural/trunk control ADL: BADL Assessment/Interventiontoil eting; feeding; grooming; lower body dressing; upper body dressing; bathing Robertson Level (Bathing)set up; verbal cues; moderate assist (50% patient effort); 1 person assist Comment (Bathing)anticipated due to impaired balance, strength, and pain. Robertson Level (Upper Body Dressing)set up; verbal cues; moderate assist (50% patient effort) Comment (Upper Body Dressing)anticipated due to impaired balance, strength, and pain. Robertson Level (Lower Body Dressing)don; socks; dependent (less than 25% patient effort) Position (Lower Body Dressing)supine Robertson Level (Grooming)set up; contact guard Comment (Grooming)anticipated due to impaired balance, strength, and pain. Robertson Level (Feeding)set up; modified independence Comment (Feeding)anticipated Robertson Level (Toileting)dependent (less than 25% patient effort); purewick Impairments, BADL Safety/Performancebalance; cognition; endurance/activity tolerance; strength; trunk/postural control Cognitive Impairments, BADL Safety/Performanceawareness , need for assistance; insight into deficits/self awareness; judgment; problem solving/reasoning Motor: Sitting, Static (Balance)good balance SBA Sitting, Dynamic (Balance)fair balance CGA Idz-dh-Sozmf (Balance)poor balance Total A via Faye Plus lift Standing, Static (Balance)poor balance Max A x1 - via Faye Plus Standing, Dynamic (Balance)unable to balance Balance ActivitiesPt sat EOB ~20 minutes throughout session primarily with SB (more content not included)... Normal [facility] Clinical Event Note-Medical Assessmenton 09-28-2021 Clinical [...] oil enema alternating with tap water enema S2Lmgxy - Bisacodyl suppository QHS Daily - Monitor [...] note 45 minutes; Electronic Signatures: Concetta Shi (MAINFRAME DEVELOPER-TALENT ACQUISITION CONSULTANT) (Signed 28-Sep-2021 14:31) Authored: Clinical Event Note Last Updated: 28-Sep-2021 14:31 by Concetta Shi (MAINFRAME DEVELOPER-TALENT ACQUISITION CONSULTANT) Normal [facility] Daily Progress Note-Gastroen terologyon 09-28-2021 Daily Progress Note-Gastroenterolog y Service: Gastroenterology Subjective Data: MORALES LEE is a 46 year old Female who is Hospital Day # 14 and POD #7 for posterior L4-L5 decompression;posterior L4-L5 arthrodesis. No events overnight. Had one bowel movement this am. Otherwise no complaints. Objective Data: Objective Information: T PRBPSpO2 [id number]/6993% Date/Time09/28 4:001 8:001 8:001 8:001 8:00 Range(36C [...] 2021 6:00 am000 Sep 27, 2021 10:00 [id number] Sep 27, 2021 2:00 [id number] The Intake and Output Totals for the last 24 hours are: IntakeOutputNet [id number] Physical Exam by System: Constitutional: Constitutional: A&Ox3, [...] recommend tr (more content not included)... Normal [facility] Daily Progress Note-Nuha leonidasgaurang 09-28-2021 Daily Progress Note-Neurosurgery Service: Neurosurgery Subjective Data: MORALES LEE is a 46 year old Female who is Hospital Day # 14 and POD #7 for posterior L4-L5 decompression;posterior L4-L5 arthrodesis. Objective Data: Objective Information: T PRBPSpO2 [id number]/4893% Date/Time09/28 4: 4: 4: 4: 4:00 Range(36C - 36.6C ) (72 - 87 ) (15 - 22 ) (92 - 153 )/ (48 - 113 ) (92% - 99% ) As of 27-Sep-2021 22:00:00, patient is on 2 L/min of oxygen via nasal cannula. Pain reported at 09/27 22:00: 0 = None ---- Intake and Output ----- Mn/Dy/Year TimeIntakeOutputNet Sep 26, 2021 10:00 [id number] Sep 26, 2021 2:00 [id number] The Intake and Output Totals for the last 24 hours are: IntakeOutputNet [id number] Physical Exam by System: Neurological: A&Ox3 RUE [...] the note. I personally evaluated the patient [id number] Electronic Signatures: Fidel Maciel (Resident)) (Signed 28-Sep-2021 05:47) Authored: Service, Subjective Data, Objective Data, Assessment and Plan, Note Completion Lex Frederick) (Signed 28-Sep-2021 07:32) Authored: Note Completion Co-Signer: Service, Subjective Data, Objective Data, Assessment and Plan, Note Completion Last Updated: 28-Sep-2021 07:32 by Lex Frederick) Normal [facility] RENAL FUNCTION PANELon 09-28 Albumin [Mass/Vol] 3.1 g/dL Low 3.4 - 5.0 [facility] Comment on above: Performed By: #### R ENAL ####[id number] [place] [address] Anion gap [Moles/Vol] 17 mmol/L Normal 10 - 20 [facility] Comment on above: Performed By: #### R ENAL ####[id number] [place] [address] Calcium [Mass/Vol] 8.4 mg/dL Low 8.6 - 10.6 [facility] Comment on above: Performed By: #### R ENAL ####[id number] [place] [address] Chloride [Moles/Vol] 102 mmol/L Normal 98 - 107 [facility] Comment on above: Performed By: #### R ENAL ####[id number] [place] [address] Creatinine [Mass/Vol] 0.47 mg/dL Low 0.50 - 1.05 [facility] Comment on above: Performed By: #### R ENAL ####[id number] [place] [address] eGFR FEMALE >90 Normal >90 [facility] Comment on above: Result Comment: CALC ULATIONS OF ESTIMATED GFR ARE PERFORMED USING THE 2020 CKD-EPI STUDY REFIT EQUATION WITHOUT THE RACE VARIABLE FOR THE IDMS-TRACEABLE CREATININE METHODS. https://jasn.asnjournals.org/content/early//ASN.3208979 988 Performed By: #### R ENAL ####[id number] [place] [address] Glucose [Mass/Vol] 74 mg/dL Normal 74 - 99 [facility] Comment on above: Performed By: #### R ENAL ####[id number] [place] [address] HCO3 (Bld) [Moles/Vol] 27 mmol/L Normal 21 - 32 [facility] Comment on above: Performed By: #### R ENAL ####[id number] [place] [address] Phosphate [Mass/Vol] 3.4 mg/dL Normal 2.5 - 4.9 [facility] Comment on above: Result Comment: The performance characteristics of phosphorus testing in heparinized plasma have been validated by the individual laboratory site where testing is performed. Testing on heparinized plasma is not approved by the FDA; however, such approval is not necessary. Performed By: #### R ENAL ####[id number] [place] [address] Potassium [Moles/Vol] 3.7 mmol/L Normal 3.5 - 5.3 [facility] Comment on above: Performed By: #### R ENAL ####[id number] [place] [address] Sodium [Moles/Vol] 142 mmol/L Normal 136 - 145 [facility] Comment on above: Performed By: #### R ENAL ####[id number] [place] [address] Urea nitrogen [Mass/Vol] 6 mg/dL Normal 6 - 23 [facility] Comment on above: Performed By: #### R ENAL ####[id number] [place] [address] Radiologyon 09-28-2021 XR Abdomen AP Normal [facility]-Gastroen terology-[place] 6 I Work Phone: Rehab Note-attemptedon 09-28 Rehab Note-attempted Rehab: 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 Pt stated NO! NO! NO! upon therapists arrival, even /c increased encouragement. Will reattempt as schedule allows. Short Term Goals: Bed Mobility: Date [id number] Bed Mobility: Robertson Level Goalminimum assist (75% patients effort) Bed Mobility: Physical Assist Level Goal1-person assist, verbal cues Bed Mobility: Time Frame for Goal2 wks Transfer: Established [id number]-2816 Transfer: Transfer Type Qjjvgvq-eu-ahppt/chair-to-b ed; vlq-we-vqlxo/exlss-yo-jtk Transfer: Robertson Level Goalmoderate assist (50% patients effort) Transfer: Physical Assist Level Goal1-person assist; verbal cues Transfer: Assistive Device Goalrolling walker Transfer: Time Frame for Goal2 wks Gait: Established [id number] Gait: Robertson Level Goalmoderate assist (50% patients effort) Gait: Physical Assist Level1-person assist; verbal cues Gait: Assistive Device Goalrolling walker Gait: Distance Goal15 feet Gait: Time Frame for Goal2 wks Balance: Established [id number] Balance: Goal DetailsSitting EOB 20 minutes with 0-1 UE support, SBA for static sitting, CGA for dynamic. Standing 1 minute with FWW and CGA Electronic Signatures: Yosi Campbell (FITNESS AND WELLNESS DIRECTOR) (Signed 28-Sep-2021 15:32) Entered: Short Term Goals, Info Authored: Info, Short Term Goals Boone Broussard (PT) (Signed 01-Oct-2021 09:01) Co-Signer: Short Term Goals, Info Last Updated: 01-Oct-2021 09:01 by Boone Broussard (PT) Normal [facility] Rehab Note-attempted Rehab: Info: Mode of [...] 28-Sep-2021 15:28 by Silvana Marshall (OT) Normal [facility] Renal Function Panelon 09-28 Albumin BCP [...] >90 >90 MG-G astroen terology-[place] [facility] Work Phone: Comment on above: CALCULATIONS OF IVY MATED GFR ARE PERFORMED USING THE 2020 CKD-EPI STUDY REFIT EQUATION WITHOUT THE RACE VARIABLE FOR THE IDMS-TRACEABLE CREATININE METHODS.https://jasn.asnjournals.org/content/early/ASN .0895965814 TH ABDOMEN AP VIEWon 022 TH ABDOMEN AP VIEW Patient Name: MORALES LEE STUDY: ABDOMEN AP VIEW; 09/28/2021 1:22 pm INDICATION: Abd. dist. . COMPARISON: 09/27/2021 abdominal radiograph. ACCESSION NUMBER(S): [id number] ORDERING CLINICIAN: CONCETTA SHI FINDINGS: Two AP [...] as stated. This study was interpreted at [facility], [place], [place]. 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 Has been on scheduled bowel regimen with [...] penicillin: Unknown Objective: Objective Information: T PRBPSpO2 [id number]% Date/Time09/27 4: 4: 4: 4:00 Range (76 [...] C6-7 ACDFF, (more content not included)... Normal [facility] Daily Progress Note-Neurosur geryon 09-27-2021 Daily Progress Note-Neurosurgery Service: Neurosurgery Subjective Data: MORALES LEE is a 46 year old Female who is Hospital Day # 13 and POD #6 for posterior L4-L5 decompression;posterior L4-L5 arthrodesis. Objective Data: Objective Information: T PRBPSpO2 [id number]/73038% Date/Time09/26 11:0809/27 4: 4: 4: 4:00 Range(37C [...] 2021 6:00 am000 Sep 26, 2021 10:00 [id number] Sep 26, 2021 2:00 [id number] The Intake and Output Totals for the last 24 hours are: IntakeOutputNet [id number] Physical Exam by System: Neurological: A&Ox3 RUE [...] the note. I personally evaluated the patient [id number] Electronic Signatures: Chaparro Umana (Resident)) (Signed 27-Sep-2021 06:11) Authored: Service, Subjective Data, Objective Data, Assessment and Plan, Note Completion Natalia Palacios) (Signed 08-Oct-2021 14:31) Authored: Note Completion Co-Signer: Service, Subjective Data, Objective Data, Assessment and Plan, Note Completion Last Updated: 08-Oct-2021 14:31 by Natalia Palacios) Normal [facility] MAGNESIUMon 09-27-2021 Magnesium [Mass/Vol] 1.80 mg/dL Normal 1.60 - 2.40 [facility] Comment on above: Performed By: #### C BC #### [facility] [id number] [place] [address] Magnesium, Serumon 2 Magnesium [Mass/Vol] 1.80 mg/dL See Below MG-G astroen terology-[facility] 6 [facility] Work Phone: Comment on above: Reference Range: 1.6 0 - 2.40 RENAL FUNCTION PANELon 09-27 Albumin [Mass/Vol] 3.3 g/dL Low 3.4 - 5.0 [facility] Comment on above: Performed By: #### R ENAL #### [facility] [address] [place] [address] Anion gap [Moles/Vol] 17 mmol/L Normal 10 - 20 [facility] Comment on above: Performed By: #### R ENAL #### [facility] [id number] [place] [address] Calcium [Mass/Vol] 8.5 mg/dL Low 8.6 - 10.6 [facility] Comment on above: Performed By: #### R ENAL #### [facility] [address] [place] [address] Chloride [Moles/Vol] 98 mmol/L Normal 98 - 107 [facility] Comment on above: Performed By: #### R ENAL #### [facility] [address] [place] [address] Creatinine [Mass/Vol] 0.44 mg/dL Low 0.50 - 1.05 [facility] Comment on above: Performed By: #### R ENAL #### [facility] [address] [place] [address] eGFR FEMALE >90 Normal >90 [facility] Comment on above: Result Comment: CALC ULATIONS OF ESTIMATED GFR ARE PERFORMED USING THE 2020 CKD-EPI STUDY REFIT EQUATION WITHOUT THE RACE VARIABLE FOR THE IDMS-TRACEABLE CREATININE METHODS. https://jasn.asnjournals.org/content/early/ASN.5480384 988 Performed By: #### R ENAL #### [facility] [address] [place] [address] Glucose [Mass/Vol] 91 mg/dL Normal 74 - 99 [facility] Comment on above: Performed By: #### R ENAL #### [facility] [address] [place] [address] HCO3 (Bld) [Moles/Vol] 26 mmol/L Normal 21 - 32 [facility] Comment on above: Performed By: #### R ENAL #### [facility] [address] [place] [address] Phosphate [Mass/Vol] 4.0 mg/dL Normal 2.5 - 4.9 [facility] Comment on above: Result Comment: The performance characteristics of phosphorus testing in heparinized plasma have been validated by the individual laboratory site where testing is performed. Testing on heparinized plasma is not approved by the FDA; however, such approval is not necessary. Performed By: #### R ENAL #### [facility] [address] [place] [address] Potassium [Moles/Vol] 4.1 mmol/L Normal 3.5 - 5.3 [facility] Comment on above: Performed By: #### R ENAL #### [facility] [address] [place] [address] Sodium [Moles/Vol] 137 mmol/L Normal 136 - 145 [facility] Comment on above: Performed By: #### R ENAL #### [facility] [address] [place] [address] Urea nitrogen [Mass/Vol] 6 mg/dL Normal 6 - 23 [facility] Comment on above: Performed By: #### R ENAL #### [facility] [address] [place] [address] Radiologyon 01-23-2022 XR Abdomen AP Normal MG-Gastroen [...] RACE VARIABLE FOR THE IDMS-TRACEABLE CREATININE METHODS.https://jasn.asnjournals.org/content/early//ASN .4435406926 ABDOMEN AP VIEWon 022 ABDOMEN AP VIEW Patient Name: MORALES LEE STUDY: ABDOMEN AP VIEW; 09/27/2021 2:33 am INDICATION: vomiting, constipation . COMPARISON: None. ACCESSION NUMBER(S): [id number] ORDERING CLINICIAN: FIDEL MACIEL FINDINGS: 2 AP [...] as stated. This study was interpreted at [facility], [place], [place]. Electronically signed by: DWIGHT MOY MD [facility] Daily Progress Note-Nuha stearns 09-26-2021 Daily Progress Note-Neurosurgery Service: Neurosurgery Subjective Data: MORALES LEE is a 46 year old Female who is Hospital Day # 12 and POD #5 for posterior L4-L5 decompression;posterior L4-L5 arthrodesis. Objective Data: Objective Information: T PRBPSpO2 [id number]/8299% Date/Time09/25 17: 12:001 17: 17:08 Range (68 - 98 ) (21 - 23 ) (118 - 136 )/ (69 - 82 ) (92% - 99% ) Pain reported at 09/26 3:00: sleeping ---- Intake and Output ----- Mn/Dy/Year TimeIntakeOutputNet Sep 24, 2021 10:00 [id number] Sep 24, 2021 2:00 [id number] Sep 24, 2021 6:00 [id number] The Intake and Output Totals for the last 24 hours are: IntakeOutputNet [id number] Physical Exam by System: Neurological: A&Ox3 RUE [...] the note. I personally evaluated the patient [id number] Electronic Signatures: Jaya Mosquera (Resident)) (Signed 26-Sep-2021 07:08) Authored: Service, Subjective Data, Objective Data, Assessment and Plan, Note Completion Natalia Palacios) (Signed 08-Oct-2021 14:10) Authored: Note Completion Co-Signer: Service, Subjective Data, Objective Data, Assessment and Plan, Note Completion Last Updated: 08-Oct-2021 14:10 by Natalia Palacios) Normal [facility] Clinical Event Note-POD 4 / Abdominal [...] plan of care. Electronic Signatures: Concetta Shi (MAINFRAME DEVELOPER-TALENT ACQUISITION CONSULTANT) (Signed 25-Sep-2021 13:30) Authored: Clinical Event Note Last Updated: 25-Sep-2021 13:30 by Concetta Shi (MAINFRAME DEVELOPER-TALENT ACQUISITION CONSULTANT) Normal [facility] Daily Progress Note-Nuha stearns 09-25-2021 Daily Progress Note-Neurosurgery Service: Neurosurgery Subjective Data: MORALES LEE is a 46 year old Female who is Hospital Day # 11 and POD #4 for posterior L4-L5 decompression;posterior L4-L5 arthrodesis. Objective Data: Objective Information: T PRBPSpO2 [id number]/6799% Date/Time09/24 16: 16: 16: 16:00 Range (68 - 78 ) (18 - 19 ) (102 - 117 )/ (57 - 73 ) (95% - 99% ) As of 24-Sep-2021 21:40:00, patient is on 2 L/min of oxygen via nasal cannula. Pain reported at 09/24 21:40: 8 = Severe ---- Intake and Output ----- Mn/Dy/Year TimeIntakeOutputNet Sep 23, 2021 10:00 [id number] Sep 23, 2021 6:00 [id number] The Intake and Output Totals for the last 24 hours are: [id number] Physical Exam by System: Neurological: A&Ox3 RUE [...] the note. I personally evaluated the patient [id number] Electronic Signatures: Lex Frederick) (Signed 25-Sep-2021 11:57) Authored: Note Completion Co-Signer: Service, Subjective Data, Objective Data, Assessment and Plan, Note Completion Alfredo Hendrickson (Resident)) (Signed 25-Sep-2021 05:56) Authored: Service, Subjective Data, Objective Data, Assessment and Plan, Note Completion Last Updated: 25-Sep-2021 11:57 by Lex Frederick) [facility] Rehab Hocl-ah-ijyvwzvqu - co -tx /c OT to address multidiscipon 09-25-2021 Rehab Zbob-mr-byzeislee - co-tx /c OT to address multidiscip Rehab: Info: Disciplinephysical occupational therapy teacher Mode of Treatmentphysical therapy; co-treatment; co-tx /c OT to address multidisciplinary functional needs and maximize pt's safety. Time IN15:05 Time OUT15:59 Total Treatment [id number] Patient in ... at end of sessionbed, [...] scooting/bridging; rolling right; rolling left Roll Left Robertson (Bed Mobility)maximum assist (25% patient effort); 2 person assist; verbal cues; nonverbal cues (demo/gesture) Roll Right Robertson (Bed Mobility)maximum assist (25% patient effort); 2 person assist; verbal cues; nonverbal cues (demo/gesture) Scoot/Bridge Robertson (Bed Mobility)maximum assist (25% patient effort); 2 person assist; nonverbal cues (demo/gesture); verbal cues Wxmlxl-pz-Gsb Robertson (Bed Mobility)maximum assist (25% patient effort); 2 person assist; verbal cues; nonverbal cues (demo/gesture) Itp-gb-Ljtyfx Robertson (Bed Mobility)maximum assist (25% patient effort); 2 [...] unable to get to full standing. Sit-Stand Robertson (Transfers)maximum assist (25% patient effort); verbal cues; nonverbal cues (demo/gesture); 2-3 persona assist Sit-Stand Assistive Device (Transfers)walker, front-wheeled Stand-Sit Robertson (Transfers)maximum assist (25% patient effort); nonverbal cues [...] Score8 Short Term Goals: Bed Mobility: Date [id number]-7198 Bed Mobility: Robertson Level Goalminimum assist (75% patients effort) Bed Mobility: Physical Assist Level Goal1-person assist, verbal cues Bed Mobility: Time Frame for Goal2 wks Transfer: Established Transfer: Transfer Type Vjsvmkz-ly-mdfwj/chair-to-b ed; xmk-qc-viyqd/yfupq-eo-die Transfer: Robertson Level Goalmoderate assist (50% patients effort) Transfer: Physical Assist Level Goal1-person assist; verbal cues Transfer: Assistive Device Goalrolling walker Transfer: Time Frame for Goal2 wks Gait: Established [id number] Gait: Robertson Level Goalmoderate assist (50% patients effort) Gait: [...] goals is gradual Electronic Signatures: Yosi Campbell (FITNESS AND WELLNESS DIRECTOR) (Signed 25-Sep-2021 16:59) Entered: Outcome Summary, Short Term Goals, Sensory, TherEx, Outcomes Tools, Info, Mobility/Tone Authored: Short Term Goals, Outcome Summary, TherEx, Outcomes Tools, Info, Mobility/Tone, Sensory Boone Broussard (PT) (Signed 01-Oct-2021 09:01) Co-Signer: Outcome Summary, Short Term Goals, Sensory, TherEx (more content not included)... Normal [facility] Rehab Note-occupational therapy teacher apy - Partial co-tx with PT to tue09-25-2021 Rehab Note-occupational therapy - Partial co-tx with PT to Rehab: Info: Disciplineoccupational therapist Mode of Treatmentoccupational therapy; Partial co-tx with PT to maximize pt's mobility and safety. Time IN15:03 Time OUT15:56 Total Treatment [id number] Patient in ... at end of sessionbed, [...] sit to supine; rolling right Roll Left Robertson (Bed Mobility)Pt required assist to bend BLE at knees and to initiate turn at shoulders and hips, verbal cues for grasp on bed rail, technique, direction follow, and encouragement.; set up; verbal cues; maximum assist (25% patient effort); 2 person assist Roll Right Robertson (Bed Mobility)Pt required assist to bend BLE at knees and to initiate turn at shoulders and hips, verbal cues for grasp on bed rail, technique, direction follow, and encouragement.; set up; verbal cues; maximum assist (25% patient effort); 2 person assist Scoot/Bridge Robertson (Bed Mobility)boost HOB; set up; verbal cues; maximum assist (25% patient effort); 2 person assist Sabrwx-mr-Rgh Robertson (Bed Mobility)HOB elevated; set up; verbal cues; maximum assist (25% patient effort); 2 person assist Kgd-ch-Kzhfof Robertson (Bed Mobility)HOB elevated; set up; verbal cues; maximum assist (25% patient effort); 2 person assist Assistive Device (Bed Mobility)bed rails; draw sheet Transfer Assessment/Interventionssit to stand transfer Sit-Stand Robertson (Transfers)set up; verbal cues; maximum assist (25% patient effort); x 2-3 assist Safety Issues Impacting Function (Mobility)ability to follow commands; awareness of need for assistance; insight into deficits/self awareness; judgment; problem solving Impairments Impacting Function (Mobility)balance; cognition; endurance/activity tolerance; pain; strength; postural/trunk control ADL: BADL Assessment/Interventiontoil eting; feeding; grooming; lower body dressing; upper body dressing; bathing Robertson Level (Bathing)set up; verbal cues; moderate assist (50% patient effort); 1 person assist Comment (Bathing)anticipated due to impaired balance, strength, and pain. Robertson Level (Upper Body Dressing)set up; verbal cues; moderate assist (50% patient effort) Comment (Upper Body Dressing)anticipated due to impaired balance, strength, and pain. Robertson Level (Lower Body Dressing)don; socks; dependent (less than 25% patient effort) Position (Lower Body Dressing)supine Robertson Level (Grooming)set up; contact guard Comment (Grooming)anticipated due to impaired balance, strength, and pain. Robertson Level (Feeding)set up; modified independence Comment (Feeding)anticipated Robertson Level (Toileting)dependent (less than 25% patient effort); purewick Impairments, BADL Safety/Performancebalance; cognition; endurance/activity tolerance; strength; trunk/postural control Cognitive Impairments, BADL Safety/Performanceawareness , need for assistance; insight into deficits/self awareness; judgment; problem solving/reasoning Motor: Sitting, Static (Balance)good balance SBA Sitting, Dynamic (Balance)fair balance CGA Fdp-nz-Qomeh (Balance)poor balance Max A x 2-3 - attempted Standing, Static (Balance)unable to balance Standing, Dynamic (Balance)unable to balance Balance ActivitiesPt sat EOB ~30 minutes with SBA/CGA for safety. Pt demonstrated good sitting balance and trunk control. Pt attempted STS transfers 3x with (more content not included)... Normal [facility] Daily Progress Note-Nuha stearns 09-24-2021 Daily Progress Note-Neurosurgery Service: Neurosurgery Subjective Data: MORALES LEE is a 46 year old Female who is Hospital Day # 10 and POD #3 for posterior L4-L5 decompression;posterior L4-L5 arthrodesis. Objective Data: Objective Information: T PRBPSpO2 [id number]% Date/Time09/23 20:4809/23 20:4809/23 20:4809/23 20:4809/23 20:48 Range(35.5C - 36.1C ) (66 - 75 ) (16 - 19 ) (90 - 118 )/ (54 - 75 ) (98% - 99% ) As of 23-Sep-2021 22:43:00, patient is on 2 L/min of oxygen via nasal cannula. ---- Intake and Output ----- [facility], 2021 10:00 [id number] Sep 22, 2021 2:00 [id number] Sep 22, 2021 6:00 [id number] The Intake and Output Totals for the last 24 hours are: [facility] [id number] Physical Exam by System: Neurological: A&Ox3 RUE [...] the note. I personally evaluated the patient [id number] Comments/ Additional Findings Doing well. Kyphotic posture and Back Pain from instability and traumatic chance fracture significantly improved as compared to preop. She developed weakness involving ankle PF/DF following mu-ism of alignment from buckling of hypertrophic ligamentum [...] for ambulation and PT for now and skilled nursing if the weakness fails to improve over [...] to the (more content not included)... Normal [facility] MAGNESIUMon 09-24-2021 Magnesium [Mass/Vol] 1.71 mg/dL Normal 1.60 - 2.40 [facility] Comment on above: Performed By: #### A FPA3 #### [facility] [id number] [place] [address] Magnesium, Serumon Magnesium [Mass/Vol] 1.71 mg/dL See Below MG-G astroen terology-Rosendo moura 6 [facility] Work Phone: Comment on above: Reference Range: 1.6 0 - 2.40 RENAL FUNCTION PANELon 09-24 Albumin [Mass/Vol] 2.6 g/dL Low 3.4 - 5.0 [facility] Comment on above: Performed By: #### R ENAL ####[id number] [place] [address] Anion gap [Moles/Vol] 10 mmol/L Normal 10 - 20 [facility] Comment on above: Performed By: #### R ENAL ####[id number] [place] [address] Calcium [Mass/Vol] 7.7 mg/dL Low 8.6 - 10.6 [facility] Comment on above: Performed By: #### R ENAL ####[id number] [place] [address] Chloride [Moles/Vol] 108 mmol/L High 98 - 107 [facility] Comment on above: Performed By: #### R ENAL ####[id number] [place] [address] Creatinine [Mass/Vol] 0.39 mg/dL Low 0.50 - 1.05 [facility] Comment on above: Performed By: #### R ENAL ####[id number] [place] [address] eGFR FEMALE >90 Normal >90 [facility] Comment on above: Result Comment: CALC ULATIONS OF ESTIMATED GFR ARE PERFORMED USING THE 2020 CKD-EPI STUDY REFIT EQUATION WITHOUT THE RACE VARIABLE FOR THE IDMS-TRACEABLE CREATININE METHODS. https://jasn.asnjournals.org/content/early/ASN.1795925 988 Performed By: #### R ENAL ####[id number] [place] [address] Glucose [Mass/Vol] 92 mg/dL Normal 74 - 99 [facility] Comment on above: Performed By: #### R ENAL ####[id number] [place] [address] HCO3 (Bld) [Moles/Vol] 29 mmol/L Normal 21 - 32 [facility] Comment on above: Performed By: #### R ENAL ####[id number] [place] [address] Phosphate [Mass/Vol] 3.3 mg/dL Normal 2.5 - 4.9 [facility] Comment on above: Result Comment: The performance characteristics of phosphorus testing in heparinized plasma have been validated by the individual laboratory site where testing is performed. Testing on heparinized plasma is not approved by the FDA; however, such approval is not necessary. Performed By: #### R ENAL ####[id number] [place] [address] Potassium [Moles/Vol] 3.9 mmol/L Normal 3.5 - 5.3 [facility] Comment on above: Performed By: #### R ENAL ####[id number] [place] [address] Sodium [Moles/Vol] 143 mmol/L Normal 136 - 145 [facility] Comment on above: Performed By: #### R ENAL ####[id number] [place] [address] Urea nitrogen [Mass/Vol] 5 mg/dL Low 6 - 23 [facility] Comment on above: Performed By: #### R ENAL ####[id number] [place] [address] Rehab Note-attemptedon 09-24 Rehab Note-attempted Rehab: Info: Mode of Treatmentattempted Time IN15:00 Reason Treatment Not Performedpatient/family declined treatment; Pt declined participation in OT treatment stating she was on a very important call that she needed to take. Electronic Signatures: Silvana Marshall (OT) (Signed 24-Sep-2021 15:29) Authored: Info Last Updated: 24-Sep-2021 15:29 by Silvana Marshall (OT) Normal [facility] Rehab Note-physical therapyo n 09-24-2021 Rehab [...] 24-Sep-2021 15:07 by Boone Broussard (PT) Normal [facility] Renal Function Panelon 09-24 Albumin BCP [...] >90 >90 MG-G tiffany carcamo-Rosendo moura 6 [facility] Work Phone: Comment on above: CALCULATIONS OF IVY MATED GFR ARE PERFORMED USING THE 2020 CKD-EPI STUDY REFIT EQUATION WITHOUT THE RACE VARIABLE FOR THE IDMS-TRACEABLE CREATININE METHODS.https://jasn.asnjournals.org/content//ASN .4100056869 CBCon 09-23-2021 Erythrocyte distribution width (RBC) [Ratio] 13.1 % Normal 11.5 - 14.5 [facility] Comment on above: Performed By: #### C BC ####[id number] [place] [address] Hematocrit (Bld) [Volume fraction] 30.5 % Low 36.0 - 46.0 [facility] Comment on above: Performed By: #### C BC ####[id number] [place] [address] Hemoglobin (Bld) [Mass/Vol] 9.9 g/dL Low 12.0 - 16.0 [facility] Comment on above: Performed By: #### C BC ####[id number] [place] [address] MCHC (RBC) [Mass/Vol] 32.5 g/dL Normal 32.0 - 36.0 [facility] Comment on above: Performed By: #### C BC ####[id number] [place] [address] MCV (RBC) [Entitic vol] 92 fL Normal 80 - 100 [facility] Comment on above: Performed By: #### C BC ####[id number] [place] [address] NUCLEATED RBC 0.0 /100 WBC Normal 0.0-0.0 [facility] Comment on above: Performed By: #### C BC ####[id number] [place] [address] Platelets (Bld) [#/Vol] 244 10*3/uL Normal 150 - 450 [facility] Comment on above: Performed By: #### C BC ####[id number] [place] [address] RBC 3.33 x10E12/L Low 4.00 - 5.20 [facility] Comment on above: Performed By: #### C BC ####[id number] [place] [address] WBC (Bld) [#/Vol] 8.6 10*3/uL Normal 4.4 - 11.3 [facility] Comment on above: Performed By: #### C BC ####[id number] [place] [address] CBC AND DIFFERENTIALon 09-23 % AUTOMATED IMMATURE GRAN 0.4 % Normal 0.0 - 0.9 [facility] Comment on above: Result Comment: Jaleesa ture Granulocyte Count (IG) includes promyelocytes, myelocytes and metamyelocytes but does not include bands. Percent differential counts (%) should be interpreted in the context of the absolute cell counts (cells/L). Performed By: #### C BC #### [facility] [address] [place] [address] Basophils (Bld) [#/Vol] 0.03 10*3/uL Normal 0.00 - 0.10 [facility] Comment on above: Performed By: #### C BC #### [facility] [address] [place] [address] Basophils/100 WBC (Bld) 0.4 % Normal 0.0 - 2.0 [facility] Comment on above: Performed By: #### C BC #### [facility] [address] [place] [address] Eosinophils (Bld) [#/Vol] 0.27 10*3/uL Normal 0.00 - 0.70 [facility] Comment on above: Performed By: #### C BC #### [facility] [address] [place] [address] Eosinophils/100 WBC (Bld) 3.6 % Normal 0.0 - 6.0 [facility] Comment on above: Performed By: #### C BC #### [facility] [address] [place] [address] Erythrocyte distribution width (RBC) [Ratio] 13.2 % Normal 11.5 - 14.5 [facility] Comment on above: Performed By: #### C BC #### [facility] [address] [place] [address] Hematocrit (Bld) [Volume fraction] 30.9 % Low 36.0 - 46.0 [facility] Comment on above: Performed By: #### C BC #### [facility] [address] [place] [address] Hemoglobin (Bld) [Mass/Vol] 10.4 g/dL Low 12.0 - 16.0 [facility] Comment on above: Performed By: #### C BC #### [facility] [address] [place] [address] Lymphocytes (Bld) [#/Vol] 2.41 10*3/uL Normal 1.20 - 4.80 [facility] Comment on above: Performed By: #### C BC #### [facility] [address] [place] [address] Lymphocytes/100 WBC (Bld) 31.9 % Normal 13.0 - 44.0 [facility] Comment on above: Performed By: #### C BC #### [facility] [address] [place] [address] MCHC (RBC) [Mass/Vol] 33.7 g/dL Normal 32.0 - 36.0 [facility] Comment on above: Performed By: #### C BC #### [facility] [address] [place] [address] MCV (RBC) [Entitic vol] 91 fL Normal 80 - 100 [facility] Comment on above: Performed By: #### C BC #### [facility] [address] [place] [address] Monocytes (Bld) [#/Vol] 0.49 10*3/uL Normal 0.10 - 1.00 [facility] Comment on above: Performed By: #### C BC #### [facility] [address] [place] [address] Monocytes/100 WBC (Bld) 6.5 % Normal 2.0 - 10.0 [facility] Comment on above: Performed By: #### C BC #### [facility] [address] [place] [address] Neutrophils (Bld) [#/Vol] 4.32 10*3/uL Normal 1.20 - 7.70 [facility] Comment on above: Performed By: #### C BC #### [facility] [address] [place] [address] Neutrophils/100 WBC (Bld) 57.2 % Normal 40.0 - 80.0 [facility] Comment on above: Performed By: #### C BC #### [facility] [address] [place] [address] NUCLEATED RBC 0.0 /100 WBC Normal 0.0-0.0 [facility] Comment on above: Performed By: #### C BC #### [facility] [address] [place] [address] Platelets (Bld) [#/Vol] 228 10*3/uL Normal 150 - 450 [facility] Comment on above: Performed By: #### C BC #### [facility] [address] [place] [address] RBC 3.39 x10E12/L Low 4.00 - 5.20 [facility] Comment on above: Performed By: #### C BC #### [facility] [address] [place] [address] WBC (Bld) [#/Vol] 7.6 10*3/uL Normal 4.4 - 11.3 [facility] Comment on above: Performed By: #### C BC #### [facility] [address] [place] [address] Complete Blood Count + Diffe vidya 09-23-2021 [...] - 11.3 MG-Gas troen terology-Rosendo ell 6 [facility] Work Phone: Complete Blood Count + Differential 0.03 {x10E9/L} See Below MG-Gastroen terology-Rosendo gretaell 6 [facility] Work Phone: Comment on above: Reference Range: 0.0 0 - 0.10 Complete Blood Count + Differential 0.27 {x10E9/L} See Below MG-Gastroen terology-Rosendo ell 6 [facility] Work Phone: Comment on above: Reference Range: 0.0 0 - 0.70 Complete Blood Count + Differential 0.49 {x10E9/L} See Below MG-Gastroen terology-Rosendo [facility] 6 [facility] Work Phone: Comment on above: Reference Range: 0.1 0 - 1.00 Complete Blood Count + Differential 2.41 {x10E9/L} See Below MG-Gastroen terology-Rosendo [facility] 6 [facility] Work Phone: Comment on above: Reference Range: 1.2 0 - 4.80 Complete Blood Count + Differential 4.32 {x10E9/L} See Below MG-Gastroen terology-Rosendo ell 6 [facility] Work Phone: Comment on above: Reference Range: 1.2 0 - 7.70 Complete Blood Count + Differential 3.6 % 0.0 - 6.0 MG-Gastroen terology-Rosendo lwell 6 [facility] Work Phone: Complete Blood Count + Differential 0.4 % 0.0 - 0.9 MG-Gastroen terology-Rosendo lwell 6 [facility] Work Phone: Comment on above: Immature [...] on above: Performed By: #### C #### [facility] [address] [place] [address] Magnesium, Serumon Magnesium [Mass/Vol] 1.68 mg/dL See [...] (Advanced Practice Nurse) done by Ambrocio Izaguirre ([facility]) Discharge - Partial Reconciliation: 23-Sep-2021 13:21 by: Ambrocio Izaguirre ([facility]) Discharge - Partial Reconciliation: 24-Sep-2021 10:12 by: Ambrocio Izaguirre ([facility]) Discharge - Partial Reconciliation: 30-Sep-2021 14:12 by: Concetta Shi ([facility]) Discharge - Partial Reconciliation: 30-Sep-2021 14:14 by: Concetta Shi ([facility]) Discharge - Reconciliation: 30-Sep-2021 14:24 by: Concetta Shi ([facility]) Discharge - Reset to Incomplete: 02-Oct-2021 15:36 by: Ambrocio Izaguirre ([facility]) Discharge - Reconciliation: 02-Oct-2021 15:40 by: Ambrocio Izaguirre ([facility]) Discharge - Reset to Incomplete: 02-Oct-2021 15:57 by: Ambrocio Izaguirre ([facility]) Discharge - Reconciliation: 02-Oct-2021 15:58 by: Ambrocio Izaguirre ([facility]) Home Medications EnteredHOME MEDICATIONS AT DISCHARGE DateReconciliation [...] not required (more content not included)... Normal [facility] PATH REVIEW-IMMUNOHEMATOLOGY on 09-23-2021 PATH REV-IMMUNOHEMOTOL LETA Normal [facility] Comment on above: Result Comment: By [...] PATIENT. Performed By: #### A FPA3 #### [facility] [address] [place] [address] RENAL FUNCTION PANELon 09-23 Albumin [Mass/Vol] 2.7 g/dL Low 3.4 - 5.0 [facility] Comment on above: Performed By: #### V FPA3 #### [facility] [address] [place] [address] Anion gap [Moles/Vol] 10 mmol/L Normal 10 - 20 [facility] Comment on above: Performed By: #### V FPA3 #### [facility] [address] [place] [address] Calcium [Mass/Vol] 7.9 mg/dL Low 8.6 - 10.6 [facility] Comment on above: Performed By: #### V FPA3 #### [facility] [address] [place] [address] Chloride [Moles/Vol] 108 mmol/L High 98 - 107 [facility] Comment on above: Performed By: #### V FPA3 #### [facility] [address] [place] [address] Creatinine [Mass/Vol] 0.39 mg/dL Low 0.50 - 1.05 [facility] Comment on above: Performed By: #### V FPA3 #### [facility] [address] [place] [address] eGFR FEMALE >90 Normal >90 [facility] Comment on above: Result Comment: CALC ULATIONS OF ESTIMATED GFR ARE PERFORMED USING THE 2020 CKD-EPI STUDY REFIT EQUATION WITHOUT THE RACE VARIABLE FOR THE IDMS-TRACEABLE CREATININE METHODS. https://jasn.asnjournals.org/content/early//ASN.7827228 988 Performed By: #### V FPA3 #### [facility] [address] [place] [address] Glucose [Mass/Vol] 87 mg/dL Normal 74 - 99 [facility] Comment on above: Performed By: #### V FPA3 #### [place] [address] [place] [address] HCO3 (Bld) [Moles/Vol] 29 mmol/L Normal 21 - 32 [facility] Comment on above: Performed By: #### V FPA3 #### [facility] [address] [place] [address] Phosphate [Mass/Vol] 2.7 mg/dL Normal 2.5 - 4.9 [facility] Comment on above: Result Comment: The performance characteristics of phosphorus testing in heparinized plasma have been validated by the individual laboratory site where testing is performed. Testing on heparinized plasma is not approved by the FDA; however, such approval is not necessary. Performed By: #### V FPA3 #### [facility] [address] [place] [address] Potassium [Moles/Vol] 3.6 mmol/L Normal 3.5 - 5.3 [facility] Comment on above: Performed By: #### V FPA3 #### [facility] [address] [place] [address] Sodium [Moles/Vol] 143 mmol/L Normal 136 - 145 [facility] Comment on above: Performed By: #### V FPA3 #### [facility] [address] [place] [address] Urea nitrogen [Mass/Vol] 9 mg/dL Normal 6 - 23 [facility] Comment on above: Performed By: #### V FPA3 #### [facility] [address] [place] [address] Rehab Note-individual therap yon 09-23-2021 Rehab Note-individual therapy Rehab: Info: Disciplinephysical therapist Mode of Treatmentphysical therapy; individual therapy Time IN14:50 Time OUT15:29 Total Treatment [id number] Patient in ... at end of sessionbed, [...] sit to supine; rolling right Roll Left Robertson (Bed Mobility)verbal cues; maximum assist (25% patient effort); 1 person assist Roll Right Robertson (Bed Mobility)maximum assist (25% patient effort); verbal cues; 1 person assist Scoot/Bridge Robertson (Bed Mobility)verbal cues; maximum assist (25% patient effort); 2 person assist; boost HOB Zyfbvw-ku-Ver Robertson (Bed Mobility)verbal cues; maximum assist (25% patient effort); 1 person assist Wfq-cl-Jtrlmr Robertson (Bed Mobility)set up; verbal cues; maximum assist (25% patient effort); 1 person assist Assistive Device (Bed Mobility)bed rails; draw sheet Transfer Assessment/Interventionssit to stand transfer; stand to sit transfer Sit-Stand Robertson (Transfers)2 person assist; moderate assist (50% patient effort) Sit-Stand Assistive Device (Transfers)B arm-in-arm assist Stand-Sit Robertson (Transfers)2 person assist; moderate assist (50% patient [...] 23-Sep-2021 15:50 by Boone Broussard (PT) Normal [facility] Renal Function Panelon 09-23 Albumin BCP [...] RACE VARIABLE FOR THE IDMS-TRACEABLE CREATININE METHODS.https://jasn.asnjournals.org/content/early/ASN .3903412753 ANTIBODY IDENT.on 09-22-2021 ANTIBODY IDENT. Anti-E Normal [facility] Comment on above: Performed By: #### V FPA3 #### [facility] [address] [place] [address] CBCon 09-22-2021 Erythrocyte distribution width (RBC) [Ratio] 13.2 % Normal 11.5 - 14.5 [facility] Comment on above: Performed By: #### V FPA3 #### [facility] [address] [place] [address] Hematocrit (Bld) [Volume fraction] 30.6 % Low 36.0 - 46.0 [facility] Comment on above: Performed By: #### V FPA3 #### [facility] [address] [place] [address] Hemoglobin (Bld) [Mass/Vol] 10.2 g/dL Low 12.0 - 16.0 [facility] Comment on above: Performed By: #### V FPA3 #### [facility] [address] [place] [address] MCHC (RBC) [Mass/Vol] 33.3 g/dL Normal 32.0 - 36.0 [facility] Comment on above: Performed By: #### V FPA3 #### [facility] [address] [place] [address] MCV (RBC) [Entitic vol] 91 fL Normal 80 - 100 [facility] Comment on above: Performed By: #### V FPA3 #### [facility] [address] [place] [address] NUCLEATED RBC 0.0 /100 WBC Normal 0.0-0.0 [facility] Comment on above: Performed By: #### V FPA3 #### [facility] [address] [place] [address] Platelets (Bld) [#/Vol] 215 10*3/uL Normal 150 - 450 [facility] Comment on above: Performed By: #### V FPA3 #### [facility] [address] [place] [address] RBC 3.37 x10E12/L Low 4.00 - 5.20 [facility] Comment on above: Performed By: #### V FPA3 #### [facility] [address] [place] [address] WBC (Bld) [#/Vol] 9.6 10*3/uL Normal 4.4 - 11.3 [facility] Comment on above: Performed By: #### V FPA3 #### [facility] [address] [place] [address] CBC AND DIFFERENTIALon 09-22 % AUTOMATED IMMATURE GRAN 0.4 % Normal 0.0 - 0.9 [facility] Comment on above: Result Comment: Jaleesa ture Granulocyte Count (IG) includes promyelocytes, myelocytes and metamyelocytes but does not include bands. Percent differential counts (%) should be interpreted in the context of the absolute cell counts (cells/L). Performed By: #### C BCDF ####[id number] [place] [address] Basophils (Bld) [#/Vol] 0.02 10*3/uL Normal 0.00 - 0.10 [facility] Comment on above: Performed By: #### C BCDF ####[id number] [place] [address] Basophils/100 WBC (Bld) 0.2 % Normal 0.0 - 2.0 [facility] Comment on above: Performed By: #### C BCDF ####[id number] [place] [address] Eosinophils (Bld) [#/Vol] 0.04 10*3/uL Normal 0.00 - 0.70 [facility] Comment on above: Performed By: #### C BCDF ####[id number] [place] [address] Eosinophils/100 WBC (Bld) 0.4 % Normal 0.0 - 6.0 [facility] Comment on above: Performed By: #### C BCDF ####[id number] [place] [address] Erythrocyte distribution width (RBC) [Ratio] 13.2 % Normal 11.5 - 14.5 [facility] Comment on above: Performed By: #### C BCDF ####[id number] [place] [address] Hematocrit (Bld) [Volume fraction] 30.6 % Low 36.0 - 46.0 [facility] Comment on above: Performed By: #### C BCDF ####[id number] [place] [address] Hemoglobin (Bld) [Mass/Vol] 10.3 g/dL Low 12.0 - 16.0 [facility] Comment on above: Performed By: #### C BCDF ####[id number] [place] [address] Lymphocytes (Bld) [#/Vol] 2.19 10*3/uL Normal 1.20 - 4.80 [facility] Comment on above: Performed By: #### C BCDF ####[id number] [place] [address] Lymphocytes/100 WBC (Bld) 19.9 % Normal 13.0 - 44.0 [facility] Comment on above: Performed By: #### C BCDF ####[id number] [place] [address] MCHC (RBC) [Mass/Vol] 33.7 g/dL Normal 32.0 - 36.0 [facility] Comment on above: Performed By: #### C BCDF ####[id number] [place] [address] MCV (RBC) [Entitic vol] 90 fL Normal 80 - 100 [facility] Comment on above: Performed By: #### C BCDF ####[id number] [place] [address] Monocytes (Bld) [#/Vol] 0.71 10*3/uL Normal 0.10 - 1.00 [facility] Comment on above: Performed By: #### C BCDF ####[id number] [place] [address] Monocytes/100 WBC (Bld) 6.5 % Normal 2.0 - 10.0 [facility] Comment on above: Performed By: #### C BCDF ####[id number] [place] [address] Neutrophils (Bld) [#/Vol] 7.98 10*3/uL High 1.20 - 7.70 [facility] Comment on above: Performed By: #### C BCDF ####[id number] [place] [address] Neutrophils/100 WBC (Bld) 72.6 % Normal 40.0 - 80.0 [facility] Comment on above: Performed By: #### C BCDF ####[id number] [place] [address] NUCLEATED RBC 0.0 /100 WBC Normal 0.0-0.0 [facility] Comment on above: Performed By: #### C BCDF ####[id number] [place] [address] Platelets (Bld) [#/Vol] 242 10*3/uL Normal 150 - 450 [facility] Comment on above: Performed By: #### C BCDF ####[id number] [place] [address] RBC 3.39 x10E12/L Low 4.00 - 5.20 [facility] Comment on above: Performed By: #### C BCDF ####[id number] [place] [address] WBC (Bld) [#/Vol] 11.0 10*3/uL Normal 4.4 - 11.3 [facility] Comment on above: Performed By: #### C BCDF ####[id number] [place] [address] Complete Blood Count + Diffe rentialon 09-22-2021 [...] 0.0 {/100_WBC} 0.0-0.0 [facility]-Gastroen terology-[facility] [place] 6 [facility] Work Phone: Complete Blood Count + Differential 0.02 {x10E9/L} See Below MG-Gastroen terology-[facility] 6 [facility] Work Phone: Comment on above: Reference Range: 0.0 0 - 0.10 Complete Blood Count + Differential 0.04 {x10E9/L} See Below MG-Gastroen terology-[facility] 6 [facility] Work Phone: Comment on above: Reference [...] with at bedside. She is currently on PARTY HOST for pain, and reports being tired this [...] this time. Objective: Objective Information: T PRBPSpO2 [id number]/5792% Date/Time09/22 0:001/18 8: 8:001 8:001/18 8:00 Range(36.3C [...] Fair. Medications: Continuous Medications ----- 1. HYDROmorphone PARTY HOST 25 mg/ NaCL 0.9% 50 mL: 2.6 mg/hr IV PARTY HOST 2. Sodium Chloride 0.9% Infusion: 1000 mL [...] from Suboxone (more content not included)... Normal [facility] Daily Progress Note-Nuha stearns 09-22-2021 Daily Progress Note-Neurosurgery Service: Neurosurgery Subjective Data: MORALES LEE is a 46 year old Female who is Hospital Day # 8 and POD #1 for posterior L4-L5 decompression;posterior L4-L5 arthrodesis. Objective Data: Objective Information: T PRBPSpO2 [id number]/5895% Date/Time09/22 0:001 0:001/18 0:001/18 0:001/18 0:00 Range(36.2C - 36.8C ) (82 - 109 ) (12 - 20 ) (85 - 132 )/ (49 - 89 ) (94% - 100% ) As of 21-Sep-2021 17:00:00, patient is on 4 L/min of oxygen via nasal cannula. Pain reported at 09/21 16:33: 5 = Moderate ---- Intake and Output ----- Mn/Dy/Year TimeIntakeOutputNet Sep 20, 2021 10:00 [id number] Sep 20, 2021 6:00 [id number] The Intake and Output Totals for the last 24 hours are: IntakeOutputNet [id number] Physical Exam by System: Neurological: A&Ox3 RUE [...] Chronic pain recs- intra-op ketamine, meloxicam post-op, PARTY HOST until good PT eval, Suboxone as OP [...] the note. I personally evaluated the patient [id number] Electronic Signatures: Fidel Maciel (Resident)) (Signed 22-Sep-2021 00:35) Authored: Service, Subjective Data, Objective Data, Assessment and Plan, Note Completion Lex Frederick) (Signed 22-Sep-2021 10:31) Authored: Note Completion Co-Signer: Service, Subjective Data, Objective Data, Assessment and Plan, Note Completion Last Updated: 22-Sep-2021 10:31 by Lex Frederick) Normal [facility] Discharge [id number] -18-2 022 Discharge Profile2 Discharge Orders: Anticipated Discharge Date: Anticipated Discharge [id number] Problem List: Additional Dx: Spinal stenosis of [...] Please call your Neurosurgeon's office (Dr. Frederick [phone]) if you have any questions. -If you [...] or twist. Instead, bend at knees to pickle cutter objects. Wound Care: Inspect your incision daily [...] taking Acetamin (more content not included)... Normal [facility] LACTATEon 09-22-2021 Lactate [Moles/Vol] 0.8 mmol/L Normal 0.4 - 2.0 [facility] Comment on above: Result Comment: Trina puncture immediately after or during the administration of Metamizole may lead to falsely low results. Testing should be performed immediately prior to Metamizole dosing. Performed By: #### C BC #### [facility] [address] [place] [address] Laboratory - Hematology and Cell countson 09-22-2021 Erythrocyte distribution width (RBC) [Ratio] 13.2 % See Below MG-Gastroen terology-Rosendo [employer] Work Phone: Comment on above: Reference Range: 11. 5 - 14.5 Hematocrit (Bld) [Volume fraction] 30.6 % below low threshold See Below MG-Gastroen terology-Rosendo [email or web address] Work Phone: Comment on above: Reference Range: [...] safety. Time IN10:50 Time OUT11:40 Total Treatment [id number] Patient in ... at end of sessionbed, 3 railings up; alarm on Communicated with ... at end of sessionbedside nurse Patient Effortgood Symptoms Noted During/After Treatmentfatigue; increased pain Patient Profile Reviewedyes Onset of Illness/Injury or Date of [id number]-Jph-0653 Reason for Referral-09/18/21: s/p exploration of spinal [...] EOB sitting. Pertinent History of Current Functional Qtspdat62 y/o with hx of HTN, C6-7 ACDF, [...] TubesIV; triple lumen; telemetry; urethral catheter indwelling; PARTY HOST pump, DAVOL drain, wound vac O2 Deliverynasal cannula; 4L Pre Treatment Patient Positionsupine Pre Treatment Blood Pressure Siwzzwdk85 mmHg Pre Treatment Diastolic (mm Hg)46 mmHg Pre Treatment Heart Rate (beats/min)67 Pre Treatment Respiratory Rate (breaths/min)19 Pre Treatment SpO2 (%)96 % Pre Treatment Oxygen Deliverysupplemental O2 Pre Treatment CommentsMAP 56 During Treatment Patient Positionsitting During Treatment Blood Pressure Keygpmxx10 mmHg During Treatment Diastolic (mm Hg)77 mmHg [...] to sit; sit to supine Roll Left Robertson (Bed Mobility)set up; verbal cues; 2 person assist; Pt required assist to bend BLE at (more content not included)... Normal [facility] PATH REVIEW-IMMUNOHEMATOLOGY on 09-22-2021 PATH REV-IMMUNOHEMOTOL ZURDO Normal [facility] Comment on above: Result Comment: By [...] THIS PATIENT. Performed By: #### C #### [facility] [address] [place] [address] PT Evaluation v6-cd-qdltcsyc t - co-treatment with OT to maxion 09-22-2021 PT Evaluation k4-qe-gjpjakbte - co-treatment with OT to maxi Rehab: Info: Mode of Treatmentphysical therapy; co-treatment; co-treatment with OT to maximize safety, mobility and ADL participation Time IN10:50 Time OUT11:40 Total Treatment Lrprfed89 Patient in ... at end of sessionbed, 3 railings up; alarm on Communicated with ... at end of sessionbedside nurse Patient Effortgood Symptoms Noted During/After Treatmentfatigue; increased pain Patient Profile Reviewedyes Onset of Illness/Injury or Date of Rjfxsgs31-Hqb-0654 Reason for Referral-09/18/21: s/p exploration of spinal [...] TubesIV; triple lumen; telemetry; urethral catheter indwelling; PARTY HOST pump, DAVOL drain, wound vac O2 Deliverynasal cannula; 4L Pre Treatment Patient Positionsupine Pre Treatment Blood Pressure Hgqymjti25 mmHg Pre Treatment Diastolic (mm Hg)46 mmHg Pre Treatment Heart Rate (beats/min)67 Pre Treatment SpO2 (%)96 % Pre Treatment Oxygen Deliverysupplemental O2 During Treatment Patient Positionsitting During Treatment Blood Pressure Qjrsqazb80 mmHg During Treatment Diastolic (mm Hg)77 mmHg [...] sit to supine; rolling right Roll Left Robertson (Bed Mobility)verbal cues; 2 person assist; Pt required assist to bend BLE at knees and to initiate turn at shoulders and hips, verbal cues for grasp on bed rail, technique, direction follow, and encouragement.; maximum assist (25% patient effort) Roll Right Robertson (Bed Mobility)2 person assist; maximum assist (25% patient effort); verbal cues Scoot/Bridge Robertson (Bed Mobility)verbal cues; maximum assist (25% patient effort); 2 person assist; boost HOB Wjnedb-tw-Emp Robertson (Bed Mobility)verbal cues; maximum assist (25% patient effort); 1 person assist Pjn-wc-Jdltac Robertson (Bed Mobility)set up; verbal cues; maximum assist (25% patient effort); 1 person assist Assistive Device (Bed Mobility)bed rails; draw sheet Impairments Impacting Function (Mobility)balance; cognition; endurance/activity tolerance; pain; strength; postural/trunk control; motor control Motor: Sitting, Static (Balance)SBA Sitting, Dynamic (Balance)CGA Rap-za-Csrus (Balance)MADELIN this visit. Pt hypotensive Sensory: Pre-Treatment Pain Rating7/10 Post-Treatment Pain Rating7/10 Comment, Pre/Post Treatment PainPt reported pain throughout buttocks and back, utilized PARTY HOST pump as needed. Pain LimitationFunctional mobility limited due pain; ADLs/IADLs limited due to pain; Participation limited by pain; RN or team was notified of limitations due to p (more content not included)... Normal [facility] RENAL FUNCTION PANELon 09-22 Albumin [Mass/Vol] 2.7 g/dL Low 3.4 - 5.0 [facility] Comment on above: Performed By: #### C BC #### [facility] [address] [place] [address] Anion gap [Moles/Vol] 10 mmol/L Normal 10 - 20 [facility] Comment on above: Performed By: #### C BC #### [facility] [address] [place] [address] Calcium [Mass/Vol] 7.8 mg/dL Low 8.6 - 10.6 [facility] Comment on above: Performed By: #### C BC #### [facility] [address] [place] [address] Chloride [Moles/Vol] 105 mmol/L Normal 98 - 107 [facility] Comment on above: Performed By: #### C BC #### [facility] [address] [place] [address] Creatinine [Mass/Vol] 0.49 mg/dL Low 0.50 - 1.05 [facility] Comment on above: Performed By: #### C BC #### [facility] [address] [place] [address] eGFR FEMALE >90 Normal >90 [facility] Comment on above: Result Comment: CALC ULATIONS OF ESTIMATED GFR ARE PERFORMED USING THE 2020 CKD-EPI STUDY REFIT EQUATION WITHOUT THE RACE VARIABLE FOR THE IDMS-TRACEABLE CREATININE METHODS. https://jasn.asnjournals.org/content/early//ASN.6825627 988 Performed By: #### C BC #### [facility] [address] [place] [address] Glucose [Mass/Vol] 93 mg/dL Normal 74 - 99 [facility] Comment on above: Performed By: #### C BC #### [facility] [address] [place] [address] HCO3 (Bld) [Moles/Vol] 29 mmol/L Normal 21 - 32 [facility] Comment on above: Performed By: #### C BC #### [facility] [address] [place] [address] Phosphate [Mass/Vol] 2.4 mg/dL Low 2.5 - 4.9 [facility] Comment on above: Result Comment: The performance characteristics of phosphorus testing in heparinized plasma have been validated by the individual laboratory site where testing is performed. Testing on heparinized plasma is not approved by the FDA; however, such approval is not necessary. Performed By: #### C BC #### [facility] [address] [place] [address] Potassium [Moles/Vol] 4.3 mmol/L Normal 3.5 - 5.3 [facility] Comment on above: Performed By: #### C BC #### [facility] [address] [place] [address] Sodium [Moles/Vol] 140 mmol/L Normal 136 - 145 [facility] Comment on above: Performed By: #### C BC #### [facility] [address] [place] [address] Urea nitrogen [Mass/Vol] 9 mg/dL Normal 6 - 23 [facility] Comment on above: Performed By: #### C BC #### [facility] [address] [place] [address] Renal Function Panelon 09-22 Albumin BCP dye [...] >90 >90 MG-G astroen terology-Rosendo [place]well 6 [facility] Work Phone: Comment on above: CALCULATIONS OF IVY MATED GFR ARE PERFORMED USING THE 2020 CKD-EPI STUDY REFIT EQUATION WITHOUT THE RACE VARIABLE FOR THE IDMS-TRACEABLE CREATININE METHODS.https://jasn.asnjournals.org/content/early/ASN .3291346418 UA MICROSCOPICon 09-22-2021 RBC 6 /HPF Abnormal 0-5 [facility] Comment on above: Performed By: #### C BC #### [facility] [address] [place] [address] SQUAMOUS EPITH. CELLS 1 /HPF Normal [facility] Comment on above: Performed By: #### C BC #### [facility] [address] [place] [address] WBC 8 /HPF Abnormal 0-5 [facility] Comment on above: Performed By: #### C BC #### [facility] [address] [place] [address] URINALYSIS WITH CULTURE IF I NDICATEDon 01-18-2022 Appearance (U) CLEAR Normal CLEAR [facility] Comment on above: Performed By: #### U ARFX ####[id number] [place] [address] Bilirubin Ql (U) Negative Normal NEGATIVE [facility] Comment on above: Performed By: #### U ARFX ####[id number] [place] [address] Color (U) SANDRA Normal STRAW,YELLO W [facility] Comment on above: Performed By: #### U ARFX ####[id number] [place] [address] Glucose Ql (U) Negative Normal NEGATIVE [facility] Comment on above: Performed By: #### U ARFX ####[id number] [place] [address] Hemoglobin Ql (U) Negative Normal NEGATIVE [facility] Comment on above: Performed By: #### U ARFX ####[id number] [place] [address] Ketones Ql (U) 20 (1+) Abnormal NEGATIVE [facility] Comment on above: Performed By: #### U ARFX ####[id number] [place] [address] Leukocyte esterase Test strip Ql (U) Negative Normal NEGATIVE [facility] Comment on above: Performed By: #### U ARFX ####[id number] [place] [address] Nitrite Ql (U) Negative Normal NEGATIVE [facility] Comment on above: Performed By: #### U ARFX ####[id number] [place] [address] pH (U) 5.0 [pH] Normal 5.0 - 8.0 [facility] Comment on above: Performed By: #### U ARFX ####[id number] [place] [address] Protein Ql (U) 30 (1+) Abnormal NEGATIVE [facility] Comment on above: Performed By: #### U ARFX ####[id number] [place] [address] Specific gravity (U) [Rel density] 1.040 High 1.005 - 1.035 [facility] Comment on above: Performed By: #### U ARFX ####[id number] [address] Urobilinogen (U) [Mass/Vol] 2.0 mg/dL High 0.0 - 1.9 [facility] Comment on above: Result Comment: Due [...] positive urobilinogen. Performed By: #### U ARFX ####[id number] [place] [address] Lab Specimen Source Normal [facility] Comment on above: Performed By: #### U ARFX ####[id number] [place] [address] Performed By: #### C BC #### [facility] [address] [place] [address] Color (U) SANDRA See Below MG-Gastroen terology-Rosendo [...] CULTURE,BACTERIALon URINE CULTURE,BACTERIAL PATIENT: MORALES LEE LOCATION: [place] [address] BILL#: [id number] : 71 AGE: SEX: F ORDERED BY: AMBROCIO IZAGUIRRE SOURCE: URINE COLLECTED: 09/22/21 12:59 ANTIBIOTICS AT [facility].: RECEIVED : 09/22/21 14:59 SITE: R E S U L T S URINE CULTURE,BACTERIAL FINAL 09/23/21 09:04 NO SIGNIFICANT GROWTH. Normal [facility] Comment on above: Performed By: #### C BC #### [facility] [address] [place] [address] Urinalysis, Microscopicon Urinalysis, Microscopic 1 {/HPF} MG-Gastroen terology-Rosendo [facility]well 6 [facility] Work Phone: Urinalysis, Microscopic 6 {/HPF} Abnormal 0-5 MG-Gastroen terology-[facility]endo [facility]well 6 [facility] Work Phone: Urinalysis, Microscopic 8 {/HPF} Abnormal 0-5 MG-Gastroen terology-[facility]endo [facility]well 6 I Work Phone: Comment on above: SOURCE: CBCon 09-21-2021 Erythrocyte distribution width (RBC) [Ratio] 13.1 % Normal 11.5 - 14.5 [facility] Comment on above: Performed By: #### R ENAL #### [facility] [address] [place] [address] Hematocrit (Bld) [Volume fraction] 34.5 % Low 36.0 - 46.0 [facility] Comment on above: Performed By: #### R ENAL #### [facility] [address] [place] [address] Hemoglobin (Bld) [Mass/Vol] 11.4 g/dL Low 12.0 - 16.0 [facility] Comment on above: Performed By: #### R ENAL #### [facility] [address] [place] [address] MCHC (RBC) [Mass/Vol] 33.0 g/dL Normal 32.0 - 36.0 [facility] Comment on above: Performed By: #### R ENAL #### [facility] [address] [place] [address] MCV (RBC) [Entitic vol] 91 fL Normal 80 - 100 [facility] Comment on above: Performed By: #### R ENAL #### [facility] [address] [place] [address] NUCLEATED RBC 0.0 /100 WBC Normal 0.0-0.0 [facility] Comment on above: Performed By: #### R ENAL #### [facility] [address] [place] [address] Platelets (Bld) [#/Vol] 269 10*3/uL Normal 150 - 450 [facility] Comment on above: Performed By: #### R ENAL #### [facility] [address] [place] [address] RBC 3.81 x10E12/L Low 4.00 - 5.20 [facility] Comment on above: Performed By: #### R ENAL #### [facility] [address] [place] [address] WBC (Bld) [#/Vol] 14.6 10*3/uL High 4.4 - 11.3 [facility] Comment on above: Performed By: #### R ENAL #### [facility] [address] [place] [address] Erythrocyte distribution width (RBC) [Ratio] 13.2 % Normal 11.5 - 14.5 [facility] Comment on above: Performed By: #### R ENAL #### [facility] [address] [place] [address] Hematocrit (Bld) [Volume fraction] 35.8 % Low 36.0 - 46.0 [facility] Comment on above: Performed By: #### R ENAL #### [facility] [address] [place] [address] Hemoglobin (Bld) [Mass/Vol] 11.9 g/dL Low 12.0 - 16.0 [facility] Comment on above: Performed By: #### R ENAL #### [facility] [address] [place] [address] MCHC (RBC) [Mass/Vol] 33.2 g/dL Normal 32.0 - 36.0 [facility] Comment on above: Performed By: #### R ENAL #### [facility] [address] [place] [address] MCV (RBC) [Entitic vol] 91 fL Normal 80 - 100 [facility] Comment on above: Performed By: #### R ENAL #### [facility] [address] [place] [address] NUCLEATED RBC 0.0 /100 WBC Normal 0.0-0.0 [facility] Comment on above: Performed By: #### R ENAL #### [facility] [address] [place] [address] Platelets (Bld) [#/Vol] 215 10*3/uL Normal 150 - 450 [facility] Comment on above: Performed By: #### R ENAL #### [facility] [address] [place] [address] RBC 3.93 x10E12/L Low 4.00 - 5.20 [facility] Comment on above: Performed By: #### R ENAL #### [facility] [address] [place] [address] WBC (Bld) [#/Vol] 14.8 10*3/uL High 4.4 - 11.3 [facility] Comment on above: Performed By: #### R ENAL #### [facility] [address] [place] [address] Daily Progress Note-Nuha stearns 09-21-2021 Daily Progress Note-Neurosurgery Service: Neurosurgery Subjective Data: MORALES LEE is a 46 year old Female who is Hospital Day # 7 and POD #3 for 1. Exploration of spinal fusion;2. Reduction of L4/5 dislocation;2. L5-pelvis instrumented fusion with posterolateral arthrodesis;4. Extension of instrumentation with multiple kwame construct and side connectors. Objective Data: Objective Information: T PRBPSpO2 Value37.210838420/8495% Date/Time09/20 15: 4: 4: 4: 4:00 Range(36.9C [...] ----- Mn/Dy/Year TimeIntakeOutputNet Sep 19, 2021 10:00 [id number] Sep 19, 2021 6:00 [id number] The Intake and Output Totals for the last 24 hours are: IntakeOutputNet [id number] Physical Exam by System: Neurological: A&Ox3 RUE [...] Chronic pain recs- intra-op ketamine, meloxicam post-op, PARTY HOST until good PT eval, Suboxone as OP [...] the following: I personally evaluated the patient [id number] Comments/ Additional Findings The patient has been [...] inborn buckling of the ligamentum flavum from mu-ism of for significant kyphotic malalignment spine I [...] MRI was performed and with the patient septic cleaner the medical necessity of considering lumbar laminectomy [...] without removing (more content not included)... Normal [facility] Laboratory - Blood bankon ABO group Nom (Bld) O MG-Ga stroen [employer] 6 [facility] Work Phone: Blood group antibody investigation (P/RBC) [Interp] Anti-E [facility] Work Phone: Blood group [...] g/dL below low threshold See Below MG-Gastroen terology-Orsendo [facility]well 6 [facility] Work Phone: Comment on [...] threshold See Below MG-Gastroen terology-Rosendo [place]well 6 [employer] Work Phone: Comment on above: Reference Range: [...] lumbar spine September 18, 2021 ACCESSION NUMBER(S): [id number]; [id number] ORDERING CLINICIAN: DEVANTE STARKS TECHNIQUE: Sagittal axial [...] Electronically signed by: NATALIA WALL, DO Normal [facility] NR MRI T-SPINE WOon 09-21-19 22 NR MRI T-SPINE WO Patient Name: MORALES LEE STUDY: MRI T-SPINE WO; MRI L-SPINE WO; 09/20/2021 10:40 pm; 09/20/2021 10:42 pm INDICATION: postop foot weakness, Lie Flat: Yes, Pre Med: No . COMPARISON: MRI December 24, [address] of the lumbar spine September 18, 2021 ACCESSION NUMBER(S): [id number]; [id number] ORDERING CLINICIAN: DEVANTE STARKS TECHNIQUE: Sagittal axial [...] Electronically signed by: NATALIA WALL DO Normal [facility] No Panel Informationon 09-21 0.0 {/100_WBC} [...] Preop Checklist Preop Checklist: Preop Checklist: Arrival [id number] Arrival Time11:00 Procedure Typere-exploration of spine Temperature C36.2 degrees C Temperature F97.1 degrees F Heart Rate91 beats per minute Respiratory Rate18 breath per minute Blood Pressure Mqchsgzt726 mm/Hg Blood Pressure Oliuiqlej52 mm/Hg COVID 19 Results in Last 7 [...] 21-Sep-2021 11:17 by Linh Buchanan (RN) Normal [facility] REQUEST-LEUKOREDUCED RED ANJU LSon 09-21-2021 REQUEST-LEUKOREDUCED RED CELLS ORDER RECD Normal [facility] Comment on above: Performed By: #### A FPA3 #### [facility] [address] [place] [address] TYPE + SCREENon 09-21-2021 ABO TYPE O Normal [facility] Comment on above: Performed By: #### A FPA3 #### [facility] [address] [place] [address] RH TYPE Positive Normal [facility] Comment on above: Performed By: #### A FPA3 #### [facility] [address] [place] [address] ABO TYPE Canceled Normal [facility] Comment on above: Order Comment: VENECIA ESPINO, 09/21/2021 05:08TEST TYPE + SCREEN WAS CANCELLED, 09/21/2021 05:06 NO PHLEB ID ON TUBE. Result Comment: CALL ED MERA ESPINO, 09/21/2021 05:08 Performed By: #### A FPA3 #### [facility] [address] [place] [id number] RH TYPE Canceled Normal [facility] Comment on above: Order Comment: VENECIA ESPINO, 09/21/2021 05:08TEST TYPE + SCREEN WAS CANCELLED, 09/21/2021 05:06 NO PHLEB ID ON TUBE. Result Comment: CALL NERY ESPINO, 09/21/2021 05:08 Performed By: #### A FPA3 #### [facility] [address] [place] [id number] CBCon 09-20-2021 Erythrocyte distribution width (RBC) [Ratio] 13.2 % Normal 11.5 - 14.5 [facility] Comment on above: Performed By: #### C BC #### [facility] [address] [place] [address] Hematocrit (Bld) [Volume fraction] 30.8 % Low 36.0 - 46.0 [facility] Comment on above: Performed By: #### C BC #### [facility] [address] [place] [address] Hemoglobin (Bld) [Mass/Vol] 9.8 g/dL Low 12.0 - 16.0 [facility] Comment on above: Performed By: #### C BC #### [facility] [address] [place] [address] MCHC (RBC) [Mass/Vol] 31.8 g/dL Low 32.0 - 36.0 [facility] Comment on above: Performed By: #### C BC #### [facility] [address] [place] [address] MCV (RBC) [Entitic vol] 93 fL Normal 80 - 100 [facility] Comment on above: Performed By: #### C BC #### [facility] [address] [place] [address] NUCLEATED RBC 0.0 /100 WBC Normal 0.0-0.0 [facility] Comment on above: Performed By: #### C BC #### [facility] [address] [place] [address] Platelets (Bld) [#/Vol] 224 10*3/uL Normal 150 - 450 [facility] Comment on above: Performed By: #### C BC #### [facility] [address] [place] [address] RBC 3.32 x10E12/L Low 4.00 - 5.20 [facility] Comment on above: Performed By: #### C BC #### [facility] [address] [place] [address] WBC (Bld) [#/Vol] 12.1 10*3/uL High 4.4 - 11.3 [facility] Comment on above: Performed By: #### C #### [facility] [address] [place] [address] Daily Progress Note-Neurosjudy leonidasgaurang 09-20-2021 Daily Progress Note-Neurosurgery Service: Neurosurgery Subjective Data: MORALES LEE is a 46 year old Female who is Hospital Day # 6 and POD #2 for 1. Exploration of spinal fusion;2. Reduction of L4/5 dislocation;2. L5-pelvis instrumented fusion with posterolateral arthrodesis;4. Extension of instrumentation with multiple kwame construct and side connectors. Objective Data: Objective Information: T PRBPSpO2 [id number]/5095% Date/Time09/19 16: 1: 16: 1: 1:34 Range(36.7C - 36.7C ) (84 - 110 ) (18 - 18 ) (82 - 118 )/ (50 - 97 ) (94% - 97% ) As of 19-Sep-2021 08:00:00, patient is on 2 L/min of oxygen via nasal cannula. ---- Intake and Output ----- Mn/Dy/Year TimeIntakeOutputNet Sep 18, 2021 10:00 [id number] The Intake and Output Totals for the [...] chronic pain recs- intra-op ketamine, meloxicam post-op, PARTY HOST until good PT eval, Suboxone as OP [...] Updated: 21-Sep-2021 11:28 by Perez Carlisle) Normal [facility] Laboratory - Hematology and Cell countson [...] 20-Sep-2021 12:25 by Carole Carlos (OT) Normal [facility] PT Evaluation v2-attemptedon 09-20-2021 PT Evaluation v2-attempted Rehab: Info: Mode of Treatmentattempted Time IN12:00 Evaluation Not PerformedPer RN pt not appropriate for therapy, pt continues to have low BP and plan to receive blood, will hold and reattempt as appropriate Electronic Signatures: Kaykay Yoo (PT) (Signed 20-Sep-2021 12:42) Authored: Info Last Updated: 20-Sep-2021 12:42 by Kaykay Yoo (PT) Normal [facility] REQUEST-LEUKOREDUCED RED ANJU LSon 09-20-2021 REQUEST-LEUKOREDUCED RED CELLS ORDER RECD Normal [facility] Comment on above: Performed By: #### R ENAL #### [facility] [address] [place] [address] CBCon 09-19-2021 Erythrocyte distribution width (RBC) [Ratio] 12.4 % Normal 11.5 - 14.5 [facility] Comment on above: Performed By: #### R ENAL #### [facility] [address] [place] [address] Hematocrit (Bld) [Volume fraction] 38.3 % Normal 36.0 - 46.0 [facility] Comment on above: Performed By: #### R ENAL #### [facility] [address] [place] [address] Hemoglobin (Bld) [Mass/Vol] 13.4 g/dL Normal 12.0 - 16.0 [facility] Comment on above: Performed By: #### R ENAL #### [facility] [address] [place] [address] MCHC (RBC) [Mass/Vol] 35.0 g/dL Normal 32.0 - 36.0 [facility] Comment on above: Performed By: #### R ENAL #### [facility] [address] [place] [address] MCV (RBC) [Entitic vol] 85 fL Normal 80 - 100 [facility] Comment on above: Performed By: #### R ENAL #### [facility] [address] [place] [address] NUCLEATED RBC 0.0 /100 WBC Normal 0.0-0.0 [facility] Comment on above: Performed By: #### R ENAL #### [facility] [address] [place] [address] Platelets (Bld) [#/Vol] 326 10*3/uL Normal 150 - 450 [facility] Comment on above: Performed By: #### R ENAL #### [facility] [address] [place] [address] RBC 4.51 x10E12/L Normal 4.00 - 5.20 [facility] Comment on above: Performed By: #### R ENAL #### [facility] [address] [place] [address] WBC (Bld) [#/Vol] 20.5 10*3/uL High 4.4 - 11.3 [facility] Comment on above: Performed By: #### R ENAL #### [facility] [address] [place] [address] CBC AND DIFFERENTIALon 09-19 % AUTOMATED IMMATURE GRAN 0.6 % Normal 0.0 - 0.9 [facility] Comment on above: Result Comment: Jaleesa ture Granulocyte Count (IG) includes promyelocytes, myelocytes and metamyelocytes but does not include bands. Percent differential counts (%) should be interpreted in the context of the absolute cell counts (cells/L). Performed By: #### V FPA3 #### [facility] [address] [place] [address] Basophils (Bld) [#/Vol] 0.03 10*3/uL Normal 0.00 - 0.10 [facility] Comment on above: Performed By: #### V FPA3 #### [facility] [address] [place] [address] Basophils/100 WBC (Bld) 0.1 % Normal 0.0 - 2.0 [facility] Comment on above: Performed By: #### V FPA3 #### [facility] [address] [place] [address] Eosinophils (Bld) [#/Vol] 0.01 10*3/uL Normal 0.00 - 0.70 [facility] Comment on above: Performed By: #### V FPA3 #### [facility] [address] [place] [address] Eosinophils/100 WBC (Bld) 0.0 % Normal 0.0 - 6.0 [facility] Comment on above: Performed By: #### V FPA3 #### [facility] [address] [place] [address] Erythrocyte distribution width (RBC) [Ratio] 12.9 % Normal 11.5 - 14.5 [facility] Comment on above: Performed By: #### V FPA3 #### [facility] [address] [place] [address] Hematocrit (Bld) [Volume fraction] 38.3 % Normal 36.0 - 46.0 [facility] Comment on above: Performed By: #### V FPA3 #### [facility] [address] [place] [address] Hemoglobin (Bld) [Mass/Vol] 12.7 g/dL Normal 12.0 - 16.0 [facility] Comment on above: Performed By: #### V FPA3 #### [facility] [address] [place] [address] Lymphocytes (Bld) [#/Vol] 2.89 10*3/uL Normal 1.20 - 4.80 [facility] Comment on above: Performed By: #### V FPA3 #### [facility] [address] [place] [address] Lymphocytes/100 WBC (Bld) 13.5 % Normal 13.0 - 44.0 [facility] Comment on above: Performed By: #### V FPA3 #### [facility] [address] [place] [address] MCHC (RBC) [Mass/Vol] 33.2 g/dL Normal 32.0 - 36.0 [facility] Comment on above: Performed By: #### V FPA3 #### [facility] [address] [place] [address] MCV (RBC) [Entitic vol] 89 fL Normal 80 - 100 [facility] Comment on above: Performed By: #### V FPA3 #### [facility] [address] [place] [address] Monocytes (Bld) [#/Vol] 1.23 10*3/uL High 0.10 - 1.00 [facility] Comment on above: Performed By: #### V FPA3 #### [facility] [address] [place] [address] Monocytes/100 WBC (Bld) 5.7 % Normal 2.0 - 10.0 [facility] Comment on above: Performed By: #### V FPA3 #### [facility] [address] [place] [address] Neutrophils (Bld) [#/Vol] 17.16 10*3/uL High 1.20 - 7.70 [facility] Comment on above: Performed By: #### V FPA3 #### [facility] [address] [place] [address] Neutrophils/100 WBC (Bld) 80.1 % Normal 40.0 - 80.0 [facility] Comment on above: Performed By: #### V FPA3 #### [facility] [address] [place] [address] NUCLEATED RBC 0.0 /100 WBC Normal 0.0-0.0 [facility] Comment on above: Performed By: #### V FPA3 #### [facility] [address] [place] [address] Platelets (Bld) [#/Vol] 401 10*3/uL Normal 150 - 450 [facility] Comment on above: Performed By: #### V FPA3 #### [facility] [address] [place] [address] RBC 4.28 x10E12/L Normal 4.00 - 5.20 [facility] Comment on above: Performed By: #### V FPA3 #### [facility] [address] [place] [address] WBC (Bld) [#/Vol] 21.5 10*3/uL High 4.4 - 11.3 [facility] Comment on above: Performed By: #### V FPA3 #### [facility] [address] [place] [address] COAGULATION SCREENon 022 aPTT Coag (Bld) [Time] 29 s Normal 26 - 39 [facility] Comment on above: Result Comment: Note new reference range as of 08/04/2021 at 10:00am. Performed By: #### R ENAL #### [facility] [address] [place] [address] PT Coag (PPP) [Time] 11.5 s Normal 9.8 - 13.4 [facility] Comment on above: Result Comment: Note new reference range as of 08/04/2021 at 10:00am. Performed By: #### R ENAL #### [facility] [address] [place] [address] PT, INR 1.0 Normal 0.9 - 1.1 [facility] Comment on above: Performed By: #### R ENAL #### [facility] [address] [place] [address] Complete Blood Count + Diffjacque dasilva 09-19-2021 [...] 0.0 {/100_WBC} 0.0-0.0 MG-Gastroen terology-Rosendo [place] 6 [facility] Work Phone: Complete Blood Count + [...] connectors. Objective Data: Objective Information: T PRBPSpO2 [id number]/8596% Date/Time09/18 17: 17: 17: 17: 17:40 Range(36.4C [...] ----- Mn/Dy/Year TimeIntakeOutputNet Sep 17, 2021 10:00 [id number] The Intake and Output Totals for the last 24 hours are: IntakeOutputNet [id number] Physical Exam by System: Neurological: A&Ox3 RUE D5, B5, T5, HG5, IO5 LUE D4+, B4+, T4+, HG4+, IO5 RLE HF 4+, KE4+, PF5, DF5 (pain limited) LLE HF 4-, KE4-, PF4, DF5 Recent Lab Results: Results: Recent Arterial Blood Gas Results 09/18/2021 11:48 [id number] 24 h range: ( 219 - 224 ) pH7.44 24 h range: ( 7.44 - 7.45 ) jID030 24 h range: ( 37 - 40 ) [id number] 24 h range: ( 100 - 100 ) Base Excess2.8 24 h range: ( 1.8 - 2.8 ) Mxzwriddbst51.2 24 h range: ( 25.7 - 27.2 [...] the note. I personally evaluated the patient [id number] Comments/ Additional Findings Patients postoperative CT scan [...] Assessment an (more content not included)... Normal [facility] - Coagulationon 0 09-19-2021 aPTT [...] - 13.4 MG-G astroen terology-Rosendo lwell 6 [facility] Work Phone: Comment on above: Note new reference r ishmael as of 08/04/2021 at 10:00am. MAGNESIUMon 09-19-2021 Magnesium [Mass/Vol] 1.59 mg/dL Low 1.60 - 2.40 [facility] Comment on above: Performed By: #### R ENAL #### [facility] [address] [place] [address] PT Evaluation v2-attemptedon 09-19-2021 PT Evaluation v2-attempted Rehab: Info: Mode of Treatmentattempted Time IN11:37 Time OUT11:50 Total Treatment [id number] Evaluation Not PerformedHistory obtained, BP assessed in supine 79/54mmHg, RN notified and redone with 71/51mmHg, will hold PT eval at this time and reattempt as medically appropriate Electronic Signatures: Kaykay Yoo (PT) (Signed 19-Sep-2021 12:14) Authored: Info Last Updated: 19-Sep-2021 12:14 by Kaykay Yoo (PT) Normal [facility] RENAL FUNCTION PANELon 09-19 Albumin [Mass/Vol] 3.4 g/dL Normal 3.4 - 5.0 [facility] Comment on above: Performed By: #### A FPA3 #### [facility] [address] [place] [address] Anion gap [Moles/Vol] 18 mmol/L Normal 10 - 20 [facility] Comment on above: Performed By: #### A FPA3 #### [facility] [address] [place] [address] Calcium [Mass/Vol] 8.3 mg/dL Low 8.6 - 10.6 [facility] Comment on above: Performed By: #### A FPA3 #### [facility] [address] [place] [address] Chloride [Moles/Vol] 100 mmol/L Normal 98 - 107 [facility] Comment on above: Performed By: #### A FPA3 #### [facility] [address] [place] [address] Creatinine [Mass/Vol] 0.60 mg/dL Normal 0.50 - 1.05 [facility] Comment on above: Performed By: #### A FPA3 #### [facility] [address] [place] [address] eGFR FEMALE >90 Normal >90 [facility] Comment on above: Result Comment: CALC ULATIONS OF ESTIMATED GFR ARE PERFORMED USING THE 2020 CKD-EPI STUDY REFIT EQUATION WITHOUT THE RACE VARIABLE FOR THE IDMS-TRACEABLE CREATININE METHODS. https://jasn.asnjournals.org/content/early//ASN.5977915 988 Performed By: #### A FPA3 #### [facility] [address] [place] [address] Glucose [Mass/Vol] 82 mg/dL Normal 74 - 99 [facility] Comment on above: Performed By: #### A FPA3 #### [place] [address] [place] [address] HCO3 (Bld) [Moles/Vol] 26 mmol/L Normal 21 - 32 [facility] Comment on above: Performed By: #### A FPA3 #### [facility] [address] [place] [address] Phosphate [Mass/Vol] 2.8 mg/dL Normal 2.5 - 4.9 [facility] Comment on above: Result Comment: The performance characteristics of phosphorus testing in heparinized plasma have been validated by the individual laboratory site where testing is performed. Testing on heparinized plasma is not approved by the FDA; however, such approval is not necessary. Performed By: #### A FPA3 #### [facility] [address] [place] [address] Potassium [Moles/Vol] 4.5 mmol/L Normal 3.5 - 5.3 [facility] Comment on above: Performed By: #### A FPA3 #### [facility] [address] [place] [address] Sodium [Moles/Vol] 139 mmol/L Normal 136 - 145 [facility] Comment on above: Performed By: #### A FPA3 #### [facility] [address] [place] [address] Urea nitrogen [Mass/Vol] 9 mg/dL Normal 6 - 23 [facility] Comment on above: Performed By: #### A FPA3 #### [facility] [address] [place] [address] Albumin [Mass/Vol] 3.6 g/dL Normal 3.4 - 5.0 [facility] Comment on above: Performed By: #### R ENAL #### [facility] [address] [place] [address] Anion gap [Moles/Vol] 13 mmol/L Normal 10 - 20 [facility] Comment on above: Performed By: #### R ENAL #### [facility] [address] [place] [address] Calcium [Mass/Vol] 8.9 mg/dL Normal 8.6 - 10.6 [facility] Comment on above: Performed By: #### R ENAL #### [facility] [address] [place] [address] Chloride [Moles/Vol] 100 mmol/L Normal 98 - 107 [facility] Comment on above: Performed By: #### R ENAL #### [facility] [address] [place] [address] Creatinine [Mass/Vol] 0.51 mg/dL Normal 0.50 - 1.05 [facility] Comment on above: Performed By: #### R ENAL #### [facility] [address] [place] [address] eGFR FEMALE >90 Normal >90 [facility] Comment on above: Result Comment: CALC ULATIONS OF ESTIMATED GFR ARE PERFORMED USING THE 2020 CKD-EPI STUDY REFIT EQUATION WITHOUT THE RACE VARIABLE FOR THE IDMS-TRACEABLE CREATININE METHODS. https://jasn.asnjournals.org/content/early/ASN.7696596 988 Performed By: #### R ENAL #### [facility] [address] [place] [address] Glucose [Mass/Vol] 123 mg/dL High 74 - 99 [facility] Comment on above: Performed By: #### R ENAL #### [facility] [address] [place] [address] HCO3 (Bld) [Moles/Vol] 28 mmol/L Normal 21 - 32 [facility] Comment on above: Performed By: #### R ENAL #### [facility] [address] [place] [address] Phosphate [Mass/Vol] 2.8 mg/dL Normal 2.5 - 4.9 [facility] Comment on above: Result Comment: The performance characteristics of phosphorus testing in heparinized plasma have been validated by the individual laboratory site where testing is performed. Testing on heparinized plasma is not approved by the FDA; however, such approval is not necessary. Performed By: #### R ENAL #### [facility] [address] [place] [address] Potassium [Moles/Vol] 4.3 mmol/L Normal 3.5 - 5.3 [facility] Comment on above: Performed By: #### R ENAL #### [facility] [address] [place] [address] Sodium [Moles/Vol] 137 mmol/L Normal 136 - 145 [facility] Comment on above: Performed By: #### R ENAL #### [facility] [address] [place] [address] Urea nitrogen [Mass/Vol] 8 mg/dL Normal 6 - 23 [facility] Comment on above: Performed By: #### R ENAL #### [facility] [address] [place] [address] Renal Function Panelon 09-19 Albumin BCP dye [...] - 4.9 MG-G astroen terology-[place]well 6 [facility] Work Phone: Comment on above: The performance arsalan acteristics of phosphorus testing in heparinized plasma have been validated by the individual laboratory site where testing is performed. Testing on heparinized plasma is not approved by the FDA; however, such approval is not necessary. Potassium [Moles/Vol] 4.5 mmol/L 3.5 - 5.3 MG-Gastroen terology-[place]endo [place]well 6 [facility] Work Phone: Sodium [Moles/Vol] 139 mmol/L 136 - 145 MG-Gas troen terology-[place]endo [place]well 6 [facility] Work Phone: Urea nitrogen [Mass/Vol] 9 mg/dL 6 - 23 MG-Gastroen terology-[place] 6 I Work Phone: Renal Function Panel >90 >90 MG-G astroen terology-[place] 6 [facility] Work Phone: Comment on above: CALCULATIONS OF IVY MATED GFR ARE PERFORMED USING THE 2020 CKD-EPI STUDY REFIT EQUATION WITHOUT THE RACE VARIABLE FOR THE IDMS-TRACEABLE CREATININE METHODS.https://jasn.asnjournals.org/content//ASN .6235636416 ANTIBODY IDENT.on 09-18-2021 ANTIBODY IDENT. Anti-E Normal [facility] Comment on above: Performed By: #### A FPA3 #### [facility] [address] [place] [address] ARTERIAL FULL PANELon 2021 Anion gap [Moles/Vol] 5 mmol/L Low 10 - 25 [facility] Comment on above: Performed By: #### A FPA3 ####[id number] [place] [address] BASE EXCESS-BLOOD 2.8 mmol/L Normal -2.0 - 3.0 [facility] Comment on above: Performed By: #### A FPA3 ####[id number] [place] [address] BICARB, CALCULATED 27.2 mmol/L High 22.0 - 26.0 [facility] Comment on above: Performed By: #### A FPA3 ####[id number] [place] [address] CALCIUM,IONIZED 1.20 mmol/L Normal 1.10 - 1.33 [facility] Comment on above: Performed By: #### A FPA3 ####[id number] [place] [address] Chloride [Moles/Vol] 106 mmol/L Normal 98 - 107 [facility] Comment on above: Performed By: #### A FPA3 ####[id number] [place] [address] Glucose [Mass/Vol] 149 mg/dL High 74 - 99 [facility] Comment on above: Performed By: #### A FPA3 ####[id number] [place] [address] Hematocrit (Bld) [Volume fraction] 38.0 % Normal 36.0 - 46.0 [facility] Comment on above: Performed By: #### A FPA3 ####[id number] [place] [address] HGB,CALCULATED 12.9 g/dL Normal 12.0 - 16.0 [facility] Comment on above: Performed By: #### A FPA3 ####[id number] [place] [address] Lactate [Moles/Vol] 0.9 mmol/L Normal 0.4 - 2.0 [facility] Comment on above: Performed By: #### A FPA3 ####[id number] [place] [address] Oxygen (Bld) [Partial pressure] 219 mm[Hg] High 85 - 95 [facility] Comment on above: Performed By: #### A FPA3 ####[id number] [place] [address] PATIENT TEMPERATURE 37.0 degrees C Normal [facility] Comment on above: Result Comment: NOTE : PATIENT RESULTS ARE NOT CORRECTED FOR TEMPERATURE. Performed By: #### A FPA3 ####[id number] [place] [address] PCO2 40 mmHg Normal 38 - 42 [facility] Comment on above: Performed By: #### A FPA3 ####[id number] [place] [address] pH (Bld) 7.44 [pH] High 7.38 - 7.42 [facility] Comment on above: Performed By: #### A FPA3 ####[id number] [place] [address] Potassium [Moles/Vol] 4.4 mmol/L Normal 3.5 - 5.3 [facility] Comment on above: Performed By: #### A FPA3 ####[id number] [place] [address] SO2 100 % Normal 94 - 100 [facility] Comment on above: Performed By: #### A FPA3 ####[id number] [place] [address] Sodium [Moles/Vol] 134 mmol/L Low 136 - 145 [facility] Comment on above: Performed By: #### A FPA3 ####[id number] [place] [address] Anion gap [Moles/Vol] 7 mmol/L Low 10 - 25 [facility] Comment on above: Performed By: #### A FPA3 #### [facility] [address] [place] [address] BASE EXCESS-BLOOD 1.8 mmol/L Normal -2.0 - 3.0 [facility] Comment on above: Performed By: #### A FPA3 #### [facility] [address] [place] [address] BICARB, CALCULATED 25.7 mmol/L Normal 22.0 - 26.0 [facility] Comment on above: Performed By: #### A FPA3 #### [facility] [id number] [place] [address] CALCIUM,IONIZED 1.20 mmol/L Normal 1.10 - 1.33 [facility] Comment on above: Performed By: #### A FPA3 #### [facility] [address] [place] [address] Chloride [Moles/Vol] 105 mmol/L Normal 98 - 107 [facility] Comment on above: Performed By: #### A FPA3 #### [facility] [address] [place] [address] Glucose [Mass/Vol] 174 mg/dL High 74 - 99 [facility] Comment on above: Performed By: #### A FPA3 #### [facility] [address] [place] [address] Hematocrit (Bld) [Volume fraction] 37.0 % Normal 36.0 - 46.0 [facility] Comment on above: Performed By: #### A FPA3 #### [facility] [facility] [address] [place] [address] HGB,CALCULATED 12.6 g/dL Normal 12.0 - 16.0 [facility] Comment on above: Performed By: #### A FPA3 #### [facility] [address] [place] [address] Lactate [Moles/Vol] 1.1 mmol/L Normal 0.4 - 2.0 [facility] Comment on above: Performed By: #### A FPA3 #### [facility] [address] [place] [address] Oxygen (Bld) [Partial pressure] 224 mm[Hg] High 85 - 95 [facility] Comment on above: Performed By: #### A FPA3 #### [facility] [address] [place] [address] PATIENT TEMPERATURE 37.0 degrees C Normal [facility] Comment on above: Result Comment: NOTE : PATIENT RESULTS ARE NOT CORRECTED FOR TEMPERATURE. Performed By: #### A FPA3 #### [facility] [address] [place] [address] PCO2 37 mmHg Low 38 - 42 [facility] Comment on above: Performed By: #### A FPA3 #### [facility] [address] [place] [address] pH (Bld) 7.45 [pH] High 7.38 - 7.42 [facility] Comment on above: Performed By: #### A FPA3 #### [facility] [address] [place] [address] Potassium [Moles/Vol] 3.9 mmol/L Normal 3.5 - 5.3 [facility] Comment on above: Performed By: #### A FPA3 #### [facility] [address] [place] [address] SO2 100 % Normal 94 - 100 [facility] Comment on above: Performed By: #### A FPA3 #### [facility] [address] [place] [address] Sodium [Moles/Vol] 134 mmol/L Low 136 - 145 [facility] Comment on above: Performed By: #### A FPA3 #### [facility] [address] [place] [address] CT L Spine without Contrasto n 09-18-2021 [...] connectors. Objective Data: Objective Information: T PRBPSpO2 [id number]/4391% Date/Time09/18 6: 5: 5: 5: 5:56 Range(37C [...] Recent Arterial Blood Gas Results 09/18/2021 11:48 [id number] 24 h range: ( 219 - 224 ) pH7.44 24 h range: ( 7.44 - 7.45 ) pJG595 24 h range: ( 37 - 40 ) RJ0305 24 h range: ( 100 - 100 ) Base Excess2.8 24 h range: ( 1.8 - 2.8 ) Lbxoxrghxqu23.2 24 h range: ( 25.7 - 27.2 ) Assessment and Plan: Code Status: Code StatusFull Code Electronic Signatures: Bryan Mora) (Signed 18-Sep-2021 14:47) Authored: Service, Subjective Data, Objective Data, Assessment and Plan, Note Completion Last Updated: 18-Sep-2021 14:47 by Bryan Mora) [facility] Daily Progress Note-Neurosjudy stearns 09-18-2021 Daily Progress Note-Neurosurgery Service: Neurosurgery Subjective Data: MORALES LEE is a 46 year old Female who is Hospital Day # 4. Objective Data: Objective Information: T PRBPSpO2 [id number]/4391% Date/Time09/18 6: 5: 5: 5: 5:56 Range(36.6C [...] Severe ---- Intake and Output ----- Mn/Dy[facility] Sep 17, 2021 10:00 [id number] Sep 17, 2021 2:00 [id number] The Intake and Output Totals for the [...] the note. I personally evaluated the patient [id number] Electronic Signatures: Fidel Maciel (Resident)) (Signed 18-Sep-2021 06:55) Authored: Service, Subjective Data, Objective Data, Assessment and Plan, Note Completion Lex Frederick) (Signed 19-Sep-2021 10:18) Authored: Note Completion Co-Signer: Service, Subjective Data, Objective Data, Assessment and Plan, Note Completion Last Updated: 19-Sep-2021 10:18 by Lex Frederick) Normal [facility] Laboratory - Chemistry and C hemistry [...] dated 10/07/2020. MRI dated 12/11/2020 ACCESSION NUMBER(S): [id number] ORDERING CLINICIAN: ANGELO JUAREZ TECHNIQUE: Thin cut [...] as stated. This study was interpreted at [place], [place]. Electronically signed by: BOONE LAO MD Normal [facility] No Panel Informationon 09-18 0.0 {/100_WBC} [...] Respiratory Rate15 breath per minute Blood Pressure Nbzuwwel63 mm/Hg Blood Pressure Ifjhfqhuf93 mm/Hg COVID 19 Results in Last 7 [...] 18-Sep-2021 06:59 by Lian Zuleta (SANAZ) Normal [facility] Radiologyon 09-18-2021 XR Chest Single view [...] RACE VARIABLE FOR THE IDMS-TRACEABLE CREATININE METHODS.https://jasn.asnjournals.org/content/early//ASN .9493326997 TH CHEST; 1 VIEWon 2 TH CHEST; 1 VIEW Patient Name: MORALES LEE STUDY: CHEST; 1 VIEW; 09/18/2021 2:38 pm INDICATION: s/p central line placement (right IJ double lumen) . COMPARISON: Radiograph dated 09/15/2021 ACCESSION NUMBER(S): [id number] ORDERING CLINICIAN: BRYAN MORA FINDINGS: Right IJ [...] Electronically signed by: LORELEI JOHNSTON MD Normal [facility] VENOUS FULL PANELon 09-18-19 Anion gap [Moles/Vol] 6 mmol/L Low 10 - 25 [facility] Comment on above: Performed By: #### V FPA3 #### [facility] [address] [place] [address] BASE EXCESS-BLOOD 3.9 mmol/L High -2.0 - 3.0 [facility] Comment on above: Performed By: #### V FPA3 #### [facility] [address] [place] [address] BICARB, CALCULATED 28.5 mmol/L High 22.0 - 26.0 [facility] Comment on above: Performed By: #### V FPA3 #### [facility] [address] [place] [address] CALCIUM,IONIZED 1.17 mmol/L Normal 1.10 - 1.33 [facility] Comment on above: Performed By: #### V FPA3 #### [facility] [address] [place] [address] Chloride [Moles/Vol] 103 mmol/L Normal 98 - 107 [facility] Comment on above: Performed By: #### V FPA3 #### [facility] [address] [place] [address] Glucose [Mass/Vol] 188 mg/dL High 74 - 99 [facility] Comment on above: Performed By: #### V FPA3 #### [facility] [address] [place] [address] Hematocrit (Bld) [Volume fraction] 39.0 % Normal 36.0 - 46.0 [facility] Comment on above: Performed By: #### V FPA3 #### [facility] [address] [place] [address] HGB,CALCULATED 13.3 g/dL Normal 12.0 - 16.0 [facility] Comment on above: Performed By: #### V FPA3 #### [facility] [address] [place] [address] Lactate [Moles/Vol] 1.2 mmol/L Normal 0.4 - 2.0 [facility] Comment on above: Performed By: #### V FPA3 #### [facility] [address] [place] [address] Oxygen (Bld) [Partial pressure] 56 mm[Hg] High 35 - 45 [facility] Comment on above: Performed By: #### V FPA3 #### [facility] [address] [place] [address] PATIENT TEMPERATURE 37.0 degrees C Normal [facility] Comment on above: Result Comment: NOTE : PATIENT RESULTS ARE NOT CORRECTED FOR TEMPERATURE. Performed By: #### V FPA3 #### [facility] [address] [place] [address] PCO2 42 mmHg Normal 41 - 51 [facility] Comment on above: Performed By: #### V FPA3 #### [facility] [address] [place] [address] pH (Bld) 7.44 [pH] High 7.33 - 7.43 [facility] Comment on above: Performed By: #### V FPA3 #### [facility] [address] [place] [address] Potassium [Moles/Vol] 4.1 mmol/L Normal 3.5 - 5.3 [facility] Comment on above: Performed By: #### V FPA3 #### [facility] [address] [place] [address] SO2 91 % High 45 - 75 [facility] Comment on above: Performed By: #### V FPA3 #### [facility] [address] [place] [address] Sodium [Moles/Vol] 133 mmol/L Low 136 - 145 [facility] Comment on above: Performed By: #### V FPA3 #### [facility] [address] [place] [address] CORONAVIRUS 2019, SCREEN ASY MPTOMATICon 09-17-2021 SARS-CoV-2 (COVID-19) RNA ADRIÁN+probe Ql (Unsp spec) Not detected Normal Not Detected [facility] Comment on above: Result Comment: . This test has received FDA Emergency Use Authorization (EUA) and has been verified by [facility] ([facility]). This test is only authorized for the duration of time that circumstances exist to justify the authorization of the emergency use of in vitro diagnostic tests for the detection of SARS-CoV-2 virus and/or diagnosis of COVID-19 infection under section 564(b)(1) of the Act, 21 U.S.C. 360bbb-3(b)(1), unless the authorization is terminated or revoked sooner. [facility] is certified under CLIA-88 as qualified to perform high complexity testing. Testing is performed in the [facility] located at [address] [place] [address]. SARS-CoV-2/Flu/RSV Multiplex Test: Fact sheet for providers: https://www.fda.gov/media/877277/download Fact sheet for patients: https://www.fda.gov/media/566740/download Performed By: #### C OVSC ####[id number] [place] [address] Lab Specimen Source Nasal, Nasopharyngeal Normal [facility] Comment on above: Performed By: #### C OVSC ####[id number] [place] [address] Coronavirus 2019 RNA by PCR, Screening Asymptomticon 09-17-2021 Coronavirus 2019 RNA by PCR, Screening Asymptomtic Not detected Normal See Below -Gastroen terology-Rosendo gretaell 6 [facility] Work Phone: Comment on above: SOURCE: Nasal, Nasop haryngealReference Range: Not Detected.This test has received FDA Emergency Use Authorization (EUA) and has been verified by [facility] ([facility]). This test is only authorized for the duration of time that circumstances exist to justify the authorization of the emergency use of in vitro diagnostic tests for the detection of SARS-CoV-2 virus and/or diagnosis of COVID-19 infection under section 564(b)(1) of the Act, 21 U.S.C. 360bbb-3(b)(1), unless the authorization is terminated or revoked sooner. [facility] is certified under CLIA-88 as qualified to perform high complexity testing. Testing is performed in the [facility] located at [address] [place] [address].SARS-CoV-2/Flu/RSV Multiplex Test: Fact sheet for providers: https://www.fda.gov/media/935856/downloadFact sheet for patients: https://www.fda.gov/media/962521/download Covid 19 Resultson 2 SARS-CoV-2 (COVID-19) RNA [...] You may also be contacted by the [place] Department of Health to see if any [...] or Naproxen (Aleve) can also be used. Qwlh-mzl-qgoridf cough and cold medicines can be used according to the instructions on the package. Some eoqn-mbi-kccmkgt medicines also contain acetaminophen. Make sure you [...] water are not available, use alcohol-based hand inside sales. Avoid touching your eyes, nose, and mouth [...] 24 mariella (more content not included)... Normal [facility] Daily Progress Note - Psychi atryon [...] pain but found it well-controlled on Dilaudid PARTY HOST and 5/10 mg oxycodone. Pt is interested [...] he has been working (cardoza at a [employer]), but she looks forward to his arrival [...] her suboxone. Objective: Objective Information: T PRBPSpO2 Value36.44517522/9095% Date/Time09/17 4: 10: 10: 10: 10:00 Range(35.7C - 36.6C ) (81 - 89 ) (10 - 23 ) (73 - 117 )/ (43 - 90 ) (91% - 96% ) As of 17-Sep-2021 08:00:00, patient is on 3 L/min of oxygen via nasal cannula. Pain reported at 09/17 8:00: 8 = Severe ---- Intake and Output ----- Mn/Dy/Year TimeIntakeOutputNet Sep 17, 2021 6:00 [id number] Sep 16, 2021 2:00 [id number] The Intake and Output Totals for the last 24 hours are: IntakeOutputNet [id number] Mental Status Exam: General: Awake, lying in [...] a Da (more content not included)... Normal [facility] Daily Progress Note-Neurosur jinny 09-17-2021 Daily Progress Note-Neurosurgery Service: Neurosurgery Subjective Data: MORALES LEE is a 46 year old Female who is Hospital Day # 3. Objective Data: Objective Information: T PRBPSpO2 Value35.2066892/4393% Date/Time09/16 18:5409/16 18:5409/16 18:5409/16 18:5409/16 18:54 Range(35.7C - 36.4C ) (81 - 91 ) (15 - 24 ) (87 - 118 )/ (43 - 84 ) (91% - 96% ) As of 16-Sep-2021 18:54:00, patient is on 2 L/min of oxygen via nasal cannula. Pain reported at 09/16 16:34: 10 = Severe ---- Intake and Output ----- Mn/Dy/Year TimeIntakeOutputNet Sep 16, 2021 2:00 [id number] Physical Exam by System: Neurological: A&Ox3 RUE [...] the note. I personally evaluated the patient [id number] Comments/ Additional Findings I again explained to [...] Updated: 19-Sep-2021 10:16 by Lex Frederick) Normal [facility] HCG,URINEon 09-17-2021 Beta HCG ( test) Ql (U) Negative Normal Negative [facility] Comment on above: Performed By: #### A FPA3 #### [facility] [address] [place] [address] Laboratory - Blood bankon ABO group Nom [...] 09-17-2021 REQUEST-LEUKOREDUCED RED CELLS ORDER RECD Normal [facility] Comment on above: Performed By: #### O SERVICE COUNSELOR #### [facility] [address] [place] [address] TYPE + SCREENon 09-17-2021 ABO TYPE O Normal [facility] Comment on above: Performed By: #### T +S #### [facility] [address] [place] [address] RH TYPE Positive Normal [facility] Comment on above: Performed By: #### T +S #### [facility] [address] [place] [address] Urine Teston 09-17 HCG ( test) Ql (U) Negative Negative MG-Gastroen terology-Rosendo lwell 6 [facility] Work Phone: BNPon 09-16-2021 Natriuretic peptide B (Bld) [Mass/Vol] 37 pg/mL Normal 0 - 99 [facility] Comment on above: Result Comment: . [...] information. Performed By: #### A FPA3 #### [facility] [address] [place] [address] CBC AND DIFFERENTIALon 09-16 % AUTOMATED IMMATURE GRAN 0.5 % Normal 0.0 - 0.9 [facility] Comment on above: Result Comment: Jaleesa ture Granulocyte Count (IG) includes promyelocytes, myelocytes and metamyelocytes but does not include bands. Percent differential counts (%) should be interpreted in the context of the absolute cell counts (cells/L). Performed By: #### C BCDF ####[id number] [place] [address] Basophils (Bld) [#/Vol] 0.04 10*3/uL Normal 0.00 - 0.10 [facility] Comment on above: Performed By: #### C BCDF ####[id number] [place] [address] Basophils/100 WBC (Bld) 0.5 % Normal 0.0 - 2.0 [facility] Comment on above: Performed By: #### C BCDF ####[id number] [place] [address] Eosinophils (Bld) [#/Vol] 0.26 10*3/uL Normal 0.00 - 0.70 [facility] Comment on above: Performed By: #### C BCDF ####[id number] [place] [address] Eosinophils/100 WBC (Bld) 3.0 % Normal 0.0 - 6.0 [facility] Comment on above: Performed By: #### C BCDF ####[id number] [place] [address] Erythrocyte distribution width (RBC) [Ratio] 13.0 % Normal 11.5 - 14.5 [facility] Comment on above: Performed By: #### C BCDF ####[id number] [place] [address] Hematocrit (Bld) [Volume fraction] 42.7 % Normal 36.0 - 46.0 [facility] Comment on above: Performed By: #### C BCDF ####[id number] [place] [address] Hemoglobin (Bld) [Mass/Vol] 14.1 g/dL Normal 12.0 - 16.0 [facility] Comment on above: Performed By: #### C BCDF ####[id number] [place] [address] Lymphocytes (Bld) [#/Vol] 3.17 10*3/uL Normal 1.20 - 4.80 [facility] Comment on above: Performed By: #### C BCDF ####[id number] [place] [address] Lymphocytes/100 WBC (Bld) 37.2 % Normal 13.0 - 44.0 [facility] Comment on above: Performed By: #### C BCDF ####[id number] [place] [address] MCHC (RBC) [Mass/Vol] 33.0 g/dL Normal 32.0 - 36.0 [facility] Comment on above: Performed By: #### C BCDF ####[id number] [place] [address] MCV (RBC) [Entitic vol] 91 fL Normal 80 - 100 [facility] Comment on above: Performed By: #### C BCDF ####[id number] [place] [address] Monocytes (Bld) [#/Vol] 0.47 10*3/uL Normal 0.10 - 1.00 [facility] Comment on above: Performed By: #### C BCDF ####[id number] [place] [address] Monocytes/100 WBC (Bld) 5.5 % Normal 2.0 - 10.0 [facility] Comment on above: Performed By: #### C BCDF ####[id number] [place] [address] Neutrophils (Bld) [#/Vol] 4.55 10*3/uL Normal 1.20 - 7.70 [facility] Comment on above: Performed By: #### C BCDF ####[id number] [place] [address] Neutrophils/100 WBC (Bld) 53.3 % Normal 40.0 - 80.0 [facility] Comment on above: Performed By: #### C BCDF ####[id number] [place] [address] NUCLEATED RBC 0.0 /100 WBC Normal 0.0-0.0 [facility] Comment on above: Performed By: #### C BCDF ####[id number] [place] [address] Platelets (Bld) [#/Vol] 278 10*3/uL Normal 150 - 450 [facility] Comment on above: Performed By: #### C BCDF ####[id number] [place] [address] RBC 4.70 x10E12/L Normal 4.00 - 5.20 [facility] Comment on above: Performed By: #### C BCDF ####[id number] [place] [address] WBC (Bld) [#/Vol] 8.5 10*3/uL Normal 4.4 - 11.3 [facility] Comment on above: Performed By: #### C BCDF ####[id number] [place] [address] COAGULATION SCREENon 022 aPTT Coag (Bld) [Time] 31 s Normal 26 - 39 [facility] Comment on above: Result Comment: Note new reference range as of 08/04/2021 at 10:00am. Performed By: #### V FPA3 #### [facility] [address] [place] [address] PT Coag (PPP) [Time] 11.6 s Normal 9.8 - 13.4 [facility] Comment on above: Result Comment: Note new reference range as of 08/04/2021 at 10:00am. Performed By: #### V FPA3 #### [facility] [address] [place] [address] PT, INR 1.0 Normal 0.9 - 1.1 [facility] Comment on above: Performed By: #### V FPA3 #### [facility] [address] [place] [address] Clinical Event Note-ADMISSIO N CLARIFICATIONon 09-16-2021 Clinical [...] and monitoring for withdrawal. Provider/Team Contact Info-Pager [phone] Electronic Signatures: Doerfler, Sharmin (MAINFRAME DEVELOPER-TALENT ACQUISITION CONSULTANT) (Signed 16-Sep-2021 12:07) Authored: Clinical Event Note Last Updated: 16-Sep-2021 12:07 by Sharmin Guaman (MAINFRAME DEVELOPER-TALENT ACQUISITION CONSULTANT) Normal [facility] Complete Blood Count + Diffe dedetialon 09-16-2021 [...] - 11.3 MG-Gas troen terology-Rosendo lwell 6 [facility] Work Phone: Complete Blood Count + [...] the note. I personally evaluated the patient [id number] Electronic Signatures: Chidi Lamar (Fellow)) (Signed 16-Sep-2021 [...] From Consult - Psychiatry 15-Sep-2021 20:42 Normal [facility] Consult-Perioperative Medici neon 09-16-2021 Consult-Perioperativ e [...] penicillin: Unknown Objective: Objective Information: T PRBPSpO2 Value36.04747338/8491% Date/Time09/16 11:13112 12:4909/16 12:4909/16 12:4909/16 12:49 Range(36.3C [...] 100 mg (more content not included)... Normal [facility] Cult, Urineon 09-16-2021 Bacteria identified Cx Nom (U) Abnormal MG-Gastroen terology-Rosendo moura 6 [facility] Work Phone: Daily Progress Note-Neurosur jinny 09-16-2021 Daily Progress Note-Neurosurgery Service: Neurosurgery Subjective Data: MORALES LEE is a 46 year old Female who is Hospital Day # 3. Objective Data: Objective Information: T PRBPSpO2 Value36.4626765/6693% Date/Time09/16 1:411 4: 4: 4: 4:00 Range(36.3C [...] the note. I personally evaluated the patient [id number] Comments/ Additional Findings TO OR this Tuesday if medically optimized for T12 - Pelvis fusion and Instrumentation. Pain consult for management regrading Suboxone and pain control in the perioperative period. US LE MRI of the lumbar spine., Lex Frederick MD, [facility], FAANS Director - Minimally Invasive Spine Surgery [facility] Java Security Engineer of Neurological Surgery [facility] [employer] [place], [place] Electronic Signatures: Fidel Maciel (Resident)) (Signed 16-Sep-2021 04:33) Authored: Service, Subjective Data, Objective Data, Assessment and Plan, Note Completion Lex Frederick) (Signed 16-Sep-2021 10:22) Authored: Note Completion Co-Signer: Service, Subjective Data, Objective Data, Assessment and Plan, Note Completion Last Updated: 16-Sep-2021 10:22 by Lex Frederick) Normal [facility] EMR ADDONon 09-16-2021 ADDON CONFIRMATION REQUEST REC'D Normal [facility] Comment on above: Performed By: #### [...] above: . <100 pg/mL - Heart failure [id number] pg/mL - Intermediate probability of acute heart. [...] [Mass/Vol] 3.5 g/dL Normal 3.4 - 5.0 [facility] Comment on above: Performed By: #### R ENAL #### [facility] [address] [place] [address] Anion gap [Moles/Vol] 14 mmol/L Normal 10 - 20 [facility] Comment on above: Performed By: #### R ENAL #### [facility] [address] [place] [address] Calcium [Mass/Vol] 8.9 mg/dL Normal 8.6 - 10.6 [facility] Comment on above: Performed By: #### R ENAL #### [facility] [address] [place] [address] Chloride [Moles/Vol] 101 mmol/L Normal 98 - 107 [facility] Comment on above: Performed By: #### R ENAL #### [facility] [address] [place] [address] Creatinine [Mass/Vol] 0.63 mg/dL Normal 0.50 - 1.05 [facility] Comment on above: Performed By: #### R ENAL #### [facility] [address] [place] [address] eGFR FEMALE >90 Normal >90 [facility] Comment on above: Result Comment: CALC ULATIONS OF ESTIMATED GFR ARE PERFORMED USING THE 2020 CKD-EPI STUDY REFIT EQUATION WITHOUT THE RACE VARIABLE FOR THE IDMS-TRACEABLE CREATININE METHODS. https://jasn.asnjournals.org/content//ASN.6562938 988 Performed By: #### R ENAL #### [facility] [address] [place] [address] Glucose [Mass/Vol] 88 mg/dL Normal 74 - 99 [facility] Comment on above: Performed By: #### R ENAL #### [facility] [address] [place] [address] HCO3 (Bld) [Moles/Vol] 29 mmol/L Normal 21 - 32 [facility] Comment on above: Performed By: #### R ENAL #### [facility] [address] [place] [address] Phosphate [Mass/Vol] 3.4 mg/dL Normal 2.5 - 4.9 [facility] Comment on above: Result Comment: The performance characteristics of phosphorus testing in heparinized plasma have been validated by the individual laboratory site where testing is performed. Testing on heparinized plasma is not approved by the FDA; however, such approval is not necessary. Performed By: #### R ENAL #### [facility] [address] [place] [address] Potassium [Moles/Vol] 3.7 mmol/L Normal 3.5 - 5.3 [facility] Comment on above: Performed By: #### R ENAL #### [facility] [address] [place] [address] Sodium [Moles/Vol] 140 mmol/L Normal 136 - 145 [facility] Comment on above: Performed By: #### R ENAL #### [facility] [address] [place] [address] Urea nitrogen [Mass/Vol] 10 mg/dL Normal 6 - 23 [facility] Comment on above: Performed By: #### R ENAL #### [facility] [address] [place] [address] Renal Function Panelon 09-16 Albumin BCP dye [...] RACE VARIABLE FOR THE IDMS-TRACEABLE CREATININE METHODS.https://jasn.asnjournals.org/content/early/ASN .8270696201 UA MICROSCOPICon 09-16-2021 BACTERIA 2+ /HPF Abnormal [facility] Comment on above: Performed By: #### U AMIC ####[id number] [place] [address] Mucus Ql (Urine sed) 1+ /LPF Normal [facility] Comment on above: Performed By: #### U AMIC ####[id number] [place] [address] RBC 3 /HPF Normal 0-5 [facility] Comment on above: Performed By: #### U AMIC ####[id number] [place] [address] SQUAMOUS EPITH. CELLS 2 /HPF Normal [facility] Comment on above: Performed By: #### U AMIC ####[id number] [place] [address] WBC 115 /HPF Abnormal 0-5 [facility] Comment on above: Performed By: #### U AMIC ####[id number] [place] [address] URINALYSISon 09-16-2021 Appearance (U) HAZY Normal CLEAR [facility] Comment on above: Performed By: #### U A ####[id number] [place] [address] Bilirubin Ql (U) Negative Normal NEGATIVE [facility] Comment on above: Performed By: #### U A ####[id number] [place] [address] Color (U) YELLOW Normal STRAW,YELLO W [facility] Comment on above: Performed By: #### U A ####[id number] [place] [address] Glucose Ql (U) Negative Normal NEGATIVE [facility] Comment on above: Performed By: #### U A ####[id number] [place] [address] Hemoglobin Ql (U) Negative Normal NEGATIVE [facility] Comment on above: Performed By: #### U A ####[id number] [place] [address] Ketones Ql (U) Negative Normal NEGATIVE [facility] Comment on above: Performed By: #### U A ####[id number] [place] [address] Leukocyte esterase Test strip Ql (U) LARGE (3+) Abnormal NEGATIVE [facility] Comment on above: Performed By: #### U A ####[id number] [place] [address] Nitrite Ql (U) Positive Abnormal NEGATIVE [facility] Comment on above: Performed By: #### U A ####[id number] [place] [address] pH (U) 6.0 [pH] Normal 5.0 - 8.0 [facility] Comment on above: Performed By: #### U A ####[id number] [place] [address] Protein Ql (U) Negative Normal NEGATIVE [facility] Comment on above: Performed By: #### U A ####[id number] [place] [address] Specific gravity (U) [Rel density] 1.011 Normal 1.005 - 1.035 [facility] Comment on above: Performed By: #### U A ####[id number] [place] [address] Urobilinogen (U) [Mass/Vol] 2.0 mg/dL High 0.0 - 1.9 [facility] Comment on above: Result Comment: Due [...] positive urobilinogen. Performed By: #### U A ####[id number] [place] [address] URINE CULTURE,BACTERIALon URINE CULTURE,BACTERIAL PATIENT: MORALES LEE LOCATION: [facility]#: [id number] : 71 AGE: SEX: F ORDERED BY: [...] DOSE DEPENDENT NS=NONSUSCEPTIBLE X=REPORTED IN ERROR Normal [facility] Comment on above: Performed By: #### A FPA3 #### [facility] [address] [place] [address] Urinalysison 09-16-2021 Color (U) YELLOW See Below [...] terology-[facility] Work Phone: Urinalysis 2.0 mg/dL above high threshold 0.0 - 1.9 [facility]astro[facility]ology-[facility] [address] Work Phone: Comment on above: Due [...] Urinalysis, Microscopic 1+ [facility]astro[facility]ology-[place] 6 [facility] Work Phone: Urinalysis, Microscopic 2+ Abnormal [facility]ology[facility] Work Phone: Urinalysis, Microscopic 2 {/HPF} [facility]astroen [facility]ology-[facility] [address] 6 [facility] Work Phone: Urinalysis, Microscopic 3 {/HPF} 0-5 [facility]astroen terology-[place] 6 [facility] Work Phone: Urinalysis, Microscopic 115 {/HPF} Abnormal 0-5 [facility]astroen terology-[facility] [place] 6 [facility] Work Phone: VASC LAB Venous Duplex Ultra sound DVTon 09-16-2021 VASC LAB Venous Duplex Ultrasound DVT [place] [address] and Vascular Lab Report Lower Venous Duplex Ultrasound Patient Name: MORALES LEE Reading Physician: [id number] YOLIE Clements MD Study Date: 09/16/2021 Referring Physician: [id number] RAGSDALE MRN/PID: [id number] PCP: Accession/Order#: [id number] CC Report to: Date of : 1975 Technologist: Isai Burleson RVT Gender: F Technologist 2: Admission Status: Outpatient Location Performed: [facility] Diagnosis/ICD: M79.89-Left leg swelling; M79.89-Right leg swelling Procedure/CPT: 69200 Peripheral venous duplex scan for DVT complete-89115 CONCLUSIONS: Right Lower Venous: No evidence of [...] Spontaneous/Phasic Peroneal Yes None PTV Yes None [id number] YOLIE Clements MD Final Normal [facility] VAS LAB Venous Duplex Ultra sound for DVTon 09-16-2021 [facility] LAB Venous Duplex Ultrasound for DVT [facility]astroen terology-[place] [facility] Work Phone: No Panel Informationon 09-15 [email or web address]?Ret rieveTestByDateTime?Patient DS=[id number]&Date= 2&Time=19%3a14%3a23%3a00&Te stType=ECG&Site=1&OutputTyp e=PDF&Ext=PDF [facility]astroen terology-[facility] [place] 6 [...] I Work Phone: [email or web address]?Ret rieveTestByDateTime?Patient LU=[id number]&Date= 2&Time=19%3a14%3a42%3a00&Te stType=ECG&Site=1&OutputTyp e=PDF&Ext=PDF [facility]astroen terology-[place] 6 [facility] Work Phone: [phone] [facility]astroen terology-[facility] [...] (Advanced Practice Nurse) done by Concetta Shi ([facility]) Admission - Reconciliation: 15-Sep-2021 19:03 by: Fidel [...] to Incomplete: 30-Sep-2021 14:18 by: Concetta Shi ([facility]) Admission - Reconciliation: 30-Sep-2021 14:20 by: Concetta Shi ([facility]) Home MedicationsEnteredLast Dose TakenReconciled with current Order Reconciliation Comment/ Additional Information acetaminophen 325 mg oral tablet 2 tab(s) orally every 6 hours, as needed while having post operative mgni33-Ctm-3368 Reviewed and Held Ambien CR 12.5 mg oral tablet, extended release 1 tab(s) oral hud97-Dvk-3625 Zolpidem Tablet (AMBIEN)DOSE = 10 mg Oral At BedtimeNotes from Pharmacy: Substitution For Zolpidem (Ambien CR) 12.5 mg at Bedtime Ambien CR 12.5 mg oral tablet, extended release continued as the inpatient order Zolpidem Ankle Foot Orthosis for foot gqpm34-Ral-6923 Reviewed and Held betamethasone topical valerate 0.1% topical cream 1 milena topical prn 15-Sep-2021 EnteredInError Reviewed and Held Bilateral Prafos - orthotics to fit, - ICD 10: R26.0, M21.37, M62.81 30-Sep-2021 Reviewed and Held calcium-vitamin D 500 mg-200 intl units (5 mcg) oral tablet 1 tab(s) orally 4 times a cxu83-Vvf-6828 Calcium 500 mg - Vitamin D 200 [...] times a day, as needed for muscle -Shs-9578 Cyclobenzaprine Tablet (FLEXERIL)DOSE = 10 mg Oral [...] topical 1% topical gel 1 milena topical ghy16-Trj-6291 Reviewed and Held DULoxetine 30 mg oral [...] 2 tab(s) orally once a day, As Nlhmfx57-Smq-2600 Reviewed and Held gabapentin 800 mg oral tablet 1 tab(s) oral 3 times a rzo07-Pin-3942 Gabapentin Capsule (NEURONTIN)DOSE = 800 mg Oral 3 Times a Day gabapentin 800 mg oral tablet continued as the inpatient order Gabapentin LEFT AFO -Orthotics to fit, ICD 10: M21.5150-Clr-9640 Reviewed and Held lidocaine 5% topical film Apply topically to affected area once a day, As Needed near surgical incision for incisional pain 15-Sep-2021 EnteredInError Reviewed and Held lisinopril 20 mg oral tablet 1 tab(s) oral once a dpz28-Fhr-6539 Lisinopril Tablet (PRINIVIL, ZESTRIL)DOSE = 20 mg [...] - available over the counter at any dtnsjodc47-Ole-0199 Reviewed and Held RIGHT AFO - Orthotics to fit, - M21.1024-Cqt-8438 Reviewed and Held sennosides-docusate 8.6 mg-50 mg oral tablet 2 tab(s) orally 2 times a day , -Take while using oxycodone for post operative pain to prevent contipation 15-Sep-19 (more content not included)... Normal [facility] Radiologyon 09-15-2021 XR Chest Single view Normal [facility]-G astroen terology-[facility] moura 6 [facility] Work Phone: TH CHEST 1 VIEWon 09-15-2021 TH CHEST 1 VIEW Patient Name: MORALES LEE STUDY: CHEST 1 VIEW; 09/15/2021 7:21 pm INDICATION: pre-op . COMPARISON: 12/26/2020. ACCESSION NUMBER(S): [id number] ORDERING CLINICIAN: TOSHA BORJA FINDINGS: CARDIOMEDIASTINAL SILHOUETTE: [...] dysfunction. Electronically signed by: Esther PEDERSON MD [facility] Established Visit (Neurosurg ariana)on 09-08-2021 Established Visit [...] in the Neurosurgery Spine Clinic at the [facility]. She is a very pleasant 46-year-old [...] and T6-L4 Fusion. COMPARISON: None. ACCESSION NUMBER(S): [id number] ORDERING CLINICIAN: LEX FREDERICK FINDINGS: Fused PA [...] signed by: JOSEPH SALAZAR MD Normal [facility] Tobacco Screening.on 022 Fall risk assessment b) One or more fall s in the last year -Nuha Doyle Work Phone: Tobacco use status [facility]PHS a) Yes -Nuha Doyle Work Phone: Established Visit (Neurosurg ariana)on 05-05-2021 Established Visit (Neurosurgery) History of Present Illness I just had the pleasure of seeing Mrs. Jesus villarreal in the Neurosurgery Spine Clinic at the [facility]. She is a very pleasant 45 -year-old female, who recently underwent a L1 Vertbrectomy and T6-L4 Fusion with me on 12/26/2020 and is status post 4 Months out from her surgery. Today's visit was a virtual visit with the patient at her home and myself at [facility]. She mentions that overall she is [...] in Ms. JESUS hollis. Lex Frederick MD, [facility], FAANS Director - Minimally Invasive Spine Surgery [facility] Java Security Engineer of Neurological Surgery [facility] [employer] [place], [place] Some of this note was completed using iCrossing voice recognition technology and sometimes the software [...] in the Neurosurgery Spine Clinic at the [facility]. She is a very pleasant 45 -year-old female, who recently underwent a L1 Vertbrectomy and T6-L4 Fusion with ar on 12/26/2020 and is status post 2 [...] the further treatment plan. Lex Frederick MD, [facility], FAANS Director - Minimally Invasive Spine Surgery [facility] Manager Banquet of Neurological Surgery [facility] [employer] [place], [place] Some of this note was completed using iCrossing voice recognition technology and sometimes the software [...] Unspecified cord compression. COMPARISON: None. ACCESSION NUMBER(S): [id number] ORDERING CLINICIAN: LEX FREDERICK TECHNIQUE: Multiplanar and [...] spine. Electronically signed by: LENNY HAGER MD [facility] NR MRI L-SPINE WOon 12-12-19 NR MRI L-SPINE WO Patient Name: MORALES LEE STUDY: MRI L-SPINE WO; ; 12/11/2020 1:38 pm INDICATION: Lumbar Pain Scoliosis, unspecified Low back pain. COMPARISON: CT lumbar spine from 10/07/2020. MRI lumbar spine from 03/11/2016. ACCESSION NUMBER(S): [id number] ORDERING CLINICIAN: LEX FREDERICK TECHNIQUE: MRI of [...] multiple levels. This study was interpreted at [facility]. Electronically signed by: WESLEY CARBAJAL MD [facility] Initial Visit (Neurosurgery) on 10-28-2020 Initial [...] Status:Resulted - Preliminary,Retrospective By Protocol Authorization; Done: [id number] 12:00AM Reason: Unspecified for Xray Spine, entire thoracic/lumbar, include skull, cervical and sacral spine when performed, 2 or 3 view Radiologist to Determine Optimal Study : Y What are the patient's signs and symptoms? : Lumbar Pain SocHx: Current smoker Tobacco Use Screening; Status:Complete; Done: 28Oct2020 Patient Discussion/Summary It was a pleasure to see Ms. LEE at the Neurosurgery Spine Clinic at [facility]. Ms. 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 She now has been having severe symptoms [...] evaluated by another spine surgeon at the [facility] who recommended urgent surgery for her [...] even walk (more content not included)... Normal [facility] 07-10-2019 [place] Telephone (SPNMMN) MORALES LEE ([id number]) 1975 F Date Time Provider Department 07/10/19 [...] Order(s):CONSULT TO ORTHOPAEDIC SURGERY [[id number]] Order #: [id number]: 1 Prescriptions as of 07/10/2019 Sig: LISINOPRIL [...] Status:Closed by DIXIE TEE MD on 07/10/19 [facility] CNOVgiovanni 07-09-2019 CNOV Office Visit (SPNSMN ) MORALES [id number]) 1975 F Date Time Provider Department 07/09/19 9:30 AM STEVENSON QUAN SPNSMN During your visit today, we recorded the following information about you: Pulse Respiration Blood pressure Weight 89/minute 18/minute 124/74 95.8 kg Height 1.499 m Stevenson Quan MD 07/09/2019 2:56 PM Signed SPINE SURGERY OUTPATIENT CONSULT SERVICE DATE: 07/09/2019 PCP: No primary care provider on file. REFERRING PROVIDER: Dixie Tee MD [address] [facility] [address] Consult requested for an opinion regarding the [...] file Gets together: Not on file Attends yazidism service: Not on file Active member of [...] with the patient or the patient?s personal contact representative. 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] Other Visit Diagnosis:Spinal stenosis of thoracic region [M48.04] Order(s):CT THORACIC SPINE WO IVCON [[id number]] Order #: [id number] FUTURE Prescriptions as of 07/09/2019 Sig: LISINOPRIL [...] Status:Closed by STEVENSON QUAN MD on 07/09/19 [facility] OBSOLETEon 07-09-2019 OBSOLETE Procedure (EMGMN) MORALES LEE ([id number]) 1975 F Date Time Provider Department 07/09/19 [...] upper limb [G56.21] Order(s):EMG(NEURO/NI) [[id number]] Order #: [id number]: 1 Prescriptions as of 07/09/2019 Sig: LISINOPRIL [...] Status:Closed by JHON EASON MD on 07/09/19 [facility] PROGRESSon 07-09-2019 PROGRESS HNO ID: [id number] Author: Stevenson Quan Service: ? Author Type: Physician Type: Progress Notes Filed: 07/09/2019 2:56 PM Note Text: SPINE SURGERY OUTPATIENT CONSULT SERVICE DATE: 07/09/2019 PCP: No primary care provider on file. REFERRING PROVIDER: Dixie Tee MD [address] [facility] [address] Consult requested for an opinion regarding the [...] file Gets together: Not on file Attends yazidism service: Not on file Active member of [...] with the patient or the patient?s personal contact representative. The patient has elected to schedule [...] 09, 2019 TIME: 10:24 AM PAGER: Normal [facility] OT-XR DEXA BONE DENSITY IMPO RTon 07-06-2019 OT-XR DEXA BONE DENSITY IMPORT Images were obtained outside of [facility] [id number] Normal [facility] CASE MGT INIT ASSESon 2018 CASE MGT INIT [facility] HNO ID: [id number] Author: Kimberly (Rn) MERA Dunaway Service: ? Author Type: Registered Nurse Type: Care Mgt Initial Assessment Filed: 06/20/2019 12:25 PM Note Text: CARE MANAGEMENT: ASSESSMENT AND DISCHARGE PLAN SERVICE DATE: 06/20/2019 SERVICE TIME: 12:21 PM PRIMARY CARE PHYSICIAN: No primary care provider on file. Phone: None ADMISSION STATUS: Observation Needs Prior to Discharge: To Be Determined MEDICAL: Patient/Hat Block Bench Hand Stated Goals: To have reduction in pain To have reduction in symptoms Health Insurance: BLUE CARD PPO Health Issues Impacting Discharge Plan: Chronic neck pain Last Discharge Date: 06/20/19 Is this Within the Past 30 days? No Advance Directive: Current Advance Directive: None Racecourse Barrier Attendant Attempted to Assist with AD Completion: Yes [...] None Has the Patient Been in a Usp Facility in the Past 30 days? N/A SOCIAL: Living Arrangement: Home Lives With: Spouse Financial Resources: Disabled Primary Contact: Extended Emergency Contact Information Primary Emergency Contact: JesusLars Address: [address] [place] [address] [facility] Mobile Relation: Spouse Supportive: Yes Other Important [...] 0 I feel financially burdened by my ytl-pm-xfnknp expenses for my prescription medication: Disagree completely [...] with . Does not utilize any DME, senior living or community resources. Has d/c transportation via . Anticipate transitional care plan of home, no skilled needs identified at this time. TCC will remain available to assist as needed with transition planning. SIGNATURE: Kimberly Dunaway RN PATIENT NAME: Morales Lee DATE: June 20, 2019 TIME: 12:21 PM PAGER/CONTACT #: [phone] Normal [facility] CBCon 06-20-2019 Erythrocyte distribution width (RBC) [Ratio] 12.6 % Normal 11.5-15.0 [facility] Comment on above: Performed By: #### C BC #### [place] [phone] Hematocrit (Bld) [Volume fraction] 48.7 % High 36.0-46.0 [facility] Comment on above: Performed By: #### C BC #### [place] [phone] Hemoglobin (Bld) [Mass/Vol] 16.8 g/dL High 11.5-15.5 [facility] Comment on above: Performed By: #### C BC #### [place] [phone] MCH (RBC) [Entitic mass] 31.1 pG Normal 26.0-34.0 [facility] Comment on above: Performed By: #### C BC #### [place] [phone] MCHC (RBC) [Mass/Vol] 34.5 g/dL Normal 30.5-36.0 [facility] Comment on above: Performed By: #### C BC #### [place] [phone] MCV (RBC) [Entitic vol] 90.0 fL Normal 80.0-100.0 [facility] Comment on above: Performed By: #### C BC #### [place] [phone] Platelet mean volume (Bld) [Entitic vol] 10.6 fL Normal 9.0-12.7 [facility] Comment on above: Performed By: #### C BC #### [place] [phone] Platelets (Bld) [#/Vol] 334 10*3/uL Normal 150-400 [facility] Comment on above: Performed By: #### C BC #### [facility] [address] [place] [address] RBC (Bld) [#/Vol] 5.41 10*6/uL High 3.90-5.20 [facility] Comment on above: Performed By: #### C BC #### [facility] [address] [place] [phone] WBC (Bld) [#/Vol] 10.85 10*3/uL Normal 3.70-11.00 [facility] Comment on above: Performed By: #### C BC #### [place] [id number] [place] [address] CONSULTon 06-20-2019 CONSULT HNO ID: [id number] Author: Evelyn Resendez Service: Pain Management Author [...] controlled substances - including suboxone - from [facility]. Of note, pt has followed once in [...] me to leave. She is now leaving [place]. 3. Will sign off SUBJECTIVE CHIEF COMPLAINT: [...] activity was identified. 06/20/2019 by Evelyn Resendez APRN.TALENT ACQUISITION CONSULTANT PAST MEDICAL HISTORY Diagnosis Date - Degenerative [...] file Gets together: Not on file Attends yazidism service: Not on file Active member of [...] Pain Management Center to participate in the oMrales Lee's care. SIGNATURE: Evelyn Resendez APRN.ROSENDO PATIENT NAME: Morales Lee DATE: June 20, 2019 TIME: 8:24 AM PAGER/CONTACT #: [phone] (M-F 8-5) Normal [facility] CT BRAIN WO IVCONon 06-20-[address] BRAIN WO IVCON * * *Final Report* * * DATE OF EXAM: Jun 20 2019 1:31AM [facility] 0504 - CT BRAIN WO IVCON / [...] No large cortical infarct or acute hemorrhage. Dietary Server: PSCB Transcribe Date/Time: Jun 20 2019 1:33A Dictated by : DAVONTE MOY MD This examination was interpreted and the report reviewed and electronically signed by: DAVONTE MOY MD on Jun 20 2019 1:35AM EST [id number] Normal [facility] ECG COMPLETEon 06-20-2019 ECG COMPLETE NAME : MORALES LEE PID : [id number] : 1975 Gender : Female Race : ORD : [id number] Procedure Date : Jun 19 2019 23:57:03 [...] ms QTC Calculation(Bazett) : [address] : [address] : -[address] : 61 degrees Test Reason : Chest Pain Location : 302 : ED AVED-1 Overread By : MD ARREDONDO LISA Edited By : FOREST WALTON Referred By : , Acquired by : [id number], [facility] ED NOTEon 06-20-2019 ED NOTE HNO ID: [id number] Author: Yuki Mckenzie) MERA Cruz Service: ? Author Type: Registered Nurse Type: ED Notes Filed: 06/20/2019 1:40 AM Note Text: Patient got CT, it is still pending and Jessie BONITA said ok to transfer to [facility] with out results pending. Patient agreeing and understanding of transfer. updated on POC and transfer via telephone. DM here to take patient at this time. Pain is not improved at time of transfer. [facility] ED NOTE HNO ID: [id number] Author: Yuki Mckenzie) MERA Cruz Service: ? Author Type: Registered Nurse Type: ED Notes Filed: 06/20/2019 1:15 AM Note Text: Clean catch urine specimen obtained and sent. [facility] ED NOTE HNO ID: [id number] Author: Yuki Mckenzie) MERA Cruz Service: ? [...] time with getting transferred to another facility. [facility] ED NOTE HNO ID: [id number] Author: Yuki Mckenzie) MERA Cruz Service: ? Author Type: Registered Nurse Type: ED Notes Filed: 06/20/2019 3:28 AM Note Text: Patient stated Valium did not help. She continues to be in pain and upset. She wanted to speak with someone in charge and update on POC. [facility] HISTORY PHYSICALon HISTORY PHYSICAL HNO ID: [id number] Author: Talita Wesley RN Service: General Internal [...] tightness that is constant. Notices a decreased server software engineer strength and weakness in left hand. She [...] rotation 40/80% Decreased left C5-C7 sensation. Left server software engineer strength 2/5. Right server software engineer strength 5/5. UE DTR intact and equal. [...] tightness into left arm, weak left hand server software engineer strength, and worsening severity of numbness/tingling -Afebrile [...] confirmed with patient pharmacy. Patient uses [facility] in [place], [place]. Patient provided #[phone]. Will call in am to confirm dose. Nicotine Abuse Assessment AND Plan: Smokes 1 1/2 PPD for 20 years. Smoking cessation advised. Nicotine patch ordered. Medication and Non-Pharmacologic VTE Prophylaxis/Anticoagulants VTE Prophylaxis: VTE prophylaxis appropriate SIGNATURE: Talita Wesley APRN.CNP PATIENT NAME: Morales Lee DATE: June 20, 2019 TIME: 2:58 AM PAGER/CONTACT #: [facility] # [phone] [facility] NURSING PROGon 06-20-2019 NURSING PROG HNO ID: [id number] Author: Austyn WilksRn) MERA Berumen Service: Nursing Author Type: Registered Nurse Type: Nursing Progress Note Filed: 06/20/2019 3:10 PM Note Text: Nursing Progress Note Patient Name: Morales Lee Patient Location: [id number]-[id number] 2 Daily Note:06/20/2019 -pt is upset regarding [...] note was completed by: AUSTYN BERUMEN RN [facility] NURSING PROG HNO ID: [id number] Author: Austyn WilksRn) MERA Berumen Service: Nursing Author Type: Registered Nurse Type: Nursing Progress Note Filed: 06/20/2019 8:10 AM Note Text: Nursing Progress Note Patient Name: Morales Lee Patient Location: [id number]/[id number] 2 Daily Note:06/20/2019 -assumed care of patient, pt is requesting her suboxone. We have to call to verify dosage. -MERA Acosta called pharmacy provided by night PROFESSIONAL FEE CODER and the pharmacy does not open until 9am. We will call back to verify dose later. -Dr. Kwon called to speak with this RN, he will be in to see the patient later today. This note was completed by: AUSTYN BERUMEN RN [facility] NURSING PROG HNO ID: [id number] Author: Guadalupe WilksRn) MERA Herbert Service: ? Author Type: Registered Nurse Type: Nursing Progress Note Filed: 06/20/2019 4:33 AM Note Text: Nursing Progress Note Patient Name: Morales Lee Patient Location: [id number] 2 Daily Note:DACIAO x 3. C/O left [...] note was completed by: Guadalupe Herbert RN [facility] PROGRESSon 06-20-2019 PROGRESS HNO ID: [id number] Author: Sedrick Martin Service: General Internal Medicine [...] rales. Cor:RSR, no murmurs. 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 DATA: Diagnostic tests [...] (fl,oh) 06/20/19 0400 activity - mobilize patient ([place]) VTE Prophylaxis: appropriate SIGNATURE: Sedrick Martin MD PATIENT NAME: Morales Lee DATE: June 20, 2019 TIME: 10:41 AM PAGER: [facility] PROGRESS HNO ID: [id number] Author: Sedrick Martin Service: General Internal Medicine Author Type: Physician Type: Progress Notes Filed: 06/20/2019 8:25 AM Note Text: As per Pain Management Consult still pending, I was notified by Pain Management to resume the pt.' s home Suboxone dosage until pt. Seen later today. Normal [facility] Troponin Ton 06-20-2019 Troponin T.cardiac [Mass/Vol] ug/L Normal 0.000-0.029 [facility] Comment on above: Performed By: #### T NT #### [facility] [address] [place] [address] Troponin T.cardiac [Mass/Vol] ug/L Normal 0.000-0.029 [facility] Comment on above: Performed By: #### T NT #### [id number] [place] [address] Basic Metabolic Panlon 06-19 Anion gap [Moles/Vol] 14 mmol/L Normal 9-18 [facility] Calcium [Mass/Vol] 10.3 mg/dL High 8.5-10.2 [facility] Chloride [Moles/Vol] 96 mmol/L Low 97-105 [facility] CO2 [Moles/Vol] 29 mmol/L Normal 22-30 [facility] Creatinine [Mass/Vol] 0.59 mg/dL Normal 0.58-0.96 [facility] eGFR- Amer. >[address] [facility] GFR/1.73 sq M predicted among non-blacks MDRD (S/P/Bld) [Vol rate/Area] mL/min/{1.73_m2} Normal [facility] Comment on above: Result Comment: eGFR [...] GFR. Glucose [Mass/Vol] 114 mg/dL High 74-99 [facility] Comment on above: Result Comment: The [place] Diabetes Association (ADA) provides guidance for cutoff [...] Standards of Medical Care in Diabetes 2016, [place] Diabetes Association. Diabetes Care. 2016.39(Suppl 1). Potassium [Moles/Vol] 3.7 mmol/L Normal 3.7-5.1 [facility] Sodium [Moles/Vol] 139 mmol/L Normal 136-144 [facility] Urea nitrogen [Mass/Vol] 7 mg/dL Normal 7-21 [facility] CBC and Differentialon 06-19 Abs Baso 0.09 k/uL Normal <0.11 [facility] Abs [place] 0.61 k/uL Normal <0.87 [facility] Abs Neut 7.56 k/uL High 1.45-7.50 [facility] Absolute nRBC <0.01 Normal <0.01 [facility] Basophils/100 WBC (Bld) 0.7 % Normal [facility] DTYPE Auto Diff Normal [facility] Eosinophils (Bld) [#/Vol] 0.25 10*3/uL Normal <0.46 [facility] Eosinophils/100 WBC (Bld) 1.9 % Normal [facility] Erythrocyte distribution width (RBC) [Ratio] 12.0 % Normal 11.5-15.0 [facility] Hematocrit (Bld) [Volume fraction] 52.6 % High 36.0-46.0 [facility] Hemoglobin (Bld) [Mass/Vol] 18.0 g/dL High 11.5-15.5 [facility] Lymphocytes (Bld) [#/Vol] 4.67 10*3/uL High 1.00-4.00 [facility] Lymphocytes/100 WBC (Bld) 35.4 % Normal [facility] MCH (RBC) [Entitic mass] 30.0 pG Normal 26.0-34.0 [facility] MCHC (RBC) [Mass/Vol] 34.2 g/dL Normal 30.5-36.0 [facility] MCV (RBC) [Entitic vol] 87.7 fL Normal 80.0-100.0 [facility] Monocytes/100 WBC (Bld) 4.6 % Normal [facility] Neutrophils/100 WBC (Bld) 57.4 % Normal [facility] NRBCs 0.0 /[address] [facility] Platelet mean volume (Bld) [Entitic vol] 10.1 fL Normal 9.0-12.7 [facility] Platelets (Bld) [#/Vol] 370 10*3/uL Normal 150-400 [facility] RBC (Bld) [#/Vol] 6.00 10*6/uL High 3.90-5.20 [facility] WBC (Bld) [#/Vol] 13.18 10*3/uL High 3.70-11.00 [facility] ED NOTEon 06-19-2019 ED NOTE HNO ID: [id number] Author: Yuki Mckenzie) MERA Cruz Service: ? Author Type: Registered Nurse Type: ED Notes Filed: 06/20/2019 3:27 AM Note Text: Patient has requested valium, she says that she takes it at home. Biago updated. [facility] ED NOTE HNO ID: [id number] Author: Yuki Mckenzie) MERA Cruz Service: ? Author Type: Registered Nurse Type: ED Notes Filed: 06/20/2019 3:27 AM Note Text: Patient is complaining of nausea. She is requesting her saboxon as well and Biago was updated on request. [facility] ED NOTE HNO ID: [id number] Author: Yuki Mckenzie) MERA Cruz Service: ? Author Type: Registered Nurse Type: ED Notes Filed: 06/19/2019 7:54 PM Note Text: Said that after her surgery in 2016 her left pinky and ring finger are numb but she said lately her other fingers on that hand have been getting numb as well. [facility] ED NOTE HNO ID: [id number] Author: Vanessa (Rn) MERA Ruiz Service: ? Author Type: Registered Nurse Type: ED Notes Filed: 06/19/2019 6:48 PM Note Text: Patient has chronic neck pain for three years. Saw spine doctor 06/12/2019 for the same had x rays. Denies any new injury. States pain goes into left arm. Arrived via wheelchair [facility] ED PROV NOTEon 06-19-2019 ED PROV NOTE HNO ID: [id number] Author: Tracy Arredondo Service: Emergency Medicine Author [...] light touch over bilateral lower extremities. 3/5 server software engineer, bicep, tricep strength over LUE. Decreased sensation to light touch over left upper extremity in median, radial, and ulnar nerve distribution. 5/5 server software engineer, bicep, tricep strength of R UE. Skin: [...] neurosurgical consult as previous notes from her systems software specialist recommend obtaining EMG and possible further [...] a neurosurgical consult she warrants transfer to [facility] for further management of her condition. We have low suspicion for stroke at this time as pain appears to be radicular in nature and she has had worsening progression of her symptoms with documented notes from spine (Dr. Álvarez) suggesting this worsening pain and numbness. The TALENT ACQUISITION CONSULTANT, Talita, at [facility] recommended we obtain a CT brain and she must rule out any acute intercranial abnormality that may be contributing to the patient's symptoms. Therefore, this study was ordered and will be followed up by the night team especially if there is any acute intracranial abnormality. As long as there is no acute intracranial abnormality she will be transferred to [facility] for further evaluation and management of her condition. Patient voiced understanding was in agreement with the above plan. This patient's case was discussed with Dr. Arredondo who personally evaluated the patient supervised her care. The patient was TRANSFERRED to: [facility] Condition at time of disposition: stable SIGNATURE: NORMA Montgomery (Pa) 06/20/19 0026 Attending Note I have personally performed a face to face assessment of the patient and have reviewed the PA/WELFARE SPECIALIST note. My schofield findings include: History is [...] of 5 strength left upper extremities in server software engineer strength as well as biceps and triceps [...] worsening neck pain we will place her [facility] observation for cardiac rule out as well [...] and requested by the observation provider at [facility] as they were concerned about stroke. However I doubt this and did not feel this was necessary however it is currently pending and patient will be transferred to [facility] if this is unremarkable. Signature: Tracy Arredondo DO Date: 06/20/2019 Time: 12:26 AM Tracy Arredondo 06/20/[address] [facility] Magnesiumon 06-19-2019 Magnesium [Mass/Vol] 2.0 mg/dL Normal 1.7-2.3 [facility] Troponin Ton 06-19-2019 Troponin T.cardiac [Mass/Vol] ug/L Normal 0.000-0.029 [facility] CNOVon 06-12-2019 CNOV Office Visit (SPNMMN ) MORALES LEE ([id number]) 1975 F Date Time Provider Department 06/12/19 [...] file Gets together: Not on file Attends yazidism service: Not on file Active member of [...] [Z98.890] Order(s):PATIENT PLACED ON SPINE CARE PATH [2307711] Order #: [id number]: 1 XR SCOLIOSIS PA STAND/LAT 2V [[id number]] Order #: [id number] FUTURE EMG(NEURO/NI) [[id number]] Order #: [id number]: 1 FUTURE CONSULT TO SPINE SURGERY [[id number]] Order #: [id number]: 1 FUTURE Prescriptions as of 06/12/2019 Sig: [...] Status:Closed by DIXIE TEE MD on 06/12/19 [facility] PROGRESSon 06-12-2019 PROGRESS HNO ID: [id number] Author: Zoey Aponte (Rt) Robert Trejo Service: Radiology Author Type: Business Center Representative Type: Progress Notes Filed: 06/12/2019 10:10 AM [...] RT Daxa June 12, 2019 10:09 AM [facility] PROGRESS HNO ID: [id number] Author: Dixie Tee Service: ? Author Type: [...] file Gets together: Not on file Attends yazidism service: Not on file Active member of [...] June 12, 2019 TIME: 8:[address] [facility] XR SCOLIOSIS 2V PA STAND/LAT on [...] changes and multilevel compression deformities as described. Dietary Server: ADITYA Transcribe Date/Time: Jun 12 2019 4:36P Dictated by : CAROLINA MOJICA MD This examination was interpreted and the report reviewed and electronically signed by: CAROLINA MOJICA MD on Jun 12 2019 4:39PM EST [id number] Normal [facility] PROGRESSon 05-14-2019 PROGRESS HNO ID: [id number] Author: Laury Levin Service: ? Author Type: Physician Police Superintendent Type: Progress Notes Filed: 05/14/2019 1:26 [...] to rule out cubital tunnel syndrome. Normal [facility] PROGRESSon 05-09-2019 PROGRESS HNO ID: [id number] Author: Kathia Kelly Service: ? Author Type: ? Type: Progress Notes Filed: 05/14/2019 1:26 PM Note Text: Patient name: Morales Lee Are you being referred by a [facility] Provider or Pain Management Provider at [facility]? No If answer is YES please schedule directly with surgeon, triage does not need to be completed. Is this a self-referral No If not, who is the Referring Provider: [facility]. Hendricks/ [facility] MRI/CT/myelogram within 12 months: Yes If No , please refer to medical spine or PCP to complete above imaging, triage does not need to be completed Imaging viewable in Epic: No If not, please provide [phone] to fax in imaging reports for review. [...] will fax imaging report and op notes. [phone] [facility] CT-CT C-SPINE WO CON IMPORTo n 02-13-2019 CT-CT C-SPINE WO CON IMPORT Images were obtained outside of [facility] [id number] Normal [facility] CT-CT L-SPINE WO CON IMPORTo n 02-13-2019 CT-CT L-SPINE WO CON IMPORT Images were obtained outside of [facility] [id number] Normal [facility] Vital Signs Date Time Vital Sign Value Performing Clinician Facility 06-07-2022 12:48-0400 Diastolic blood pressure 83 mm[Hg] No Pcp Required [facility] 06-07-2022 12:48-0400 Heart rate 67 /min No Pcp Required [facility] 06-07-2022 12:48-0400 Respiratory rate 16 /min No Pcp Required [facility] 06-07-2022 12:48-0400 SaO2% (BldA) [Mass fraction] 96 % No Pcp Required [facility] 06-07-2022 12:48-0400 Systolic blood pressure 148 mm[Hg] No Pcp Required [facility] 01-06-2022 10:51-0400 Blood Pressure Location NATALIA MANNING [facility] 01-06-2022 10:51-0400 Diastolic blood pressure 86 mm[Hg] NATALIA MANNING [facility] 01-06-2022 10:51-0400 Heart rate 86 /min NATALIA MANNING [facility] 01-06-2022 10:51-0400 Respiratory rate 16 /min NATALIA MANNING [facility] 01-06-2022 10:51-0400 Systolic blood pressure 132 mm[Hg] NATALIA MANNING [facility] 09-08-2021 14:15-0500 Body height 149.86 cm No PCP None [facility]-Neurosurgery- Ah [facility] Work Phone: 09-08-2021 14:15-0500 Body mass index (BMI) [Ratio] 36.96 kg/m2 No PCP None KE-Jhucgxdzzcxq-We uja Work Phone: 09-08-2021 14:15-0500 Body surface area Derived from formula 1.78 m2 No PCP None KQ-Plmdtkrrfnnp-Ad uja Work Phone: 09-08-2021 14:15-0500 Body weight 83.01 kg No PCP None [facility]Neurosurgery- [facility] Work Phone: 09-08-2021 14:15-0500 Diastolic blood pressure 68 mm[Hg] No PCP None SK-Wcizvahkszco-Za uja Work Phone: 09-08-2021 14:15-0500 Heart rate 96 /min No PCP None [facility]- [facility] Work Phone: 09-08-2021 14:15-0500 Respiratory rate 16 /min No PCP None [facility]Neurosurgery -Ah [facility] Work Phone: 09-08-2021 14:15-0500 Systolic blood pressure 115 mm[Hg] No PCP None VY-Isvtxkximlbc-Tc uja Work Phone: 09-08-2021 14:15-0500 0 1 No PCP None [facility]Neurosurgery- Ah [facility] Work Phone: Comment on above: [facility] 01-01-2021 16:46-0400 Heart rate 111 /min No Pcp Required [facility] 01-01-2021 16:46-0400 SaO2% (BldA) [Mass fraction] 95 % No Pcp Required [facility] 01-01-2021 14:00-0400 Body temperature 96.8 [degF] No Pcp Required [facility] 01-01-2021 14:00-0400 Diastolic blood pressure 77 mm[Hg] No Pcp Required [facility] 01-01-2021 14:00-0400 Respiratory rate 18 /min No Pcp Required [facility] 01-01-2021 14:00-0400 Systolic blood pressure 114 mm[Hg] No Pcp Required [facility] Encounters Encounter Date Encounter Type Care [...] procedure Danya Bingham [facility] Start: 11-22-2022 ambulatory MENDOSA H FAWWAD Facilit y:H1 Start: 11-09-2022 End: 11-09-[address] DEVANTE ELIZONDO . Facility:[facility]1 Start: 10-22-2022 ambulatory Young [place] Faci lity:SHAHZAD [place] Start: 10-15-2022 End: 10-15-2022 ambulatory KYRA DIAB . Facility:H1 Start: 09-24-2022 End: 09-25-2022 ambulatory MENDOSA FAWWAD Facility:[facility] [place] Start: 09-24-2022 End: 09-24-2022 Patient encounter procedure Danya Bingham [facility] Start: 09-01-2022 Encounter for preprocedural laboratory examination DANYA BINGHAM . [facility] Start: 08-25-2022 End: 08-26-2022 ambulatory MENDOSA H FAWWAD Facility:H1 Start: 08-24-2022 End: 08-25-2022 ambulatory MENDOSA H FAWWAD Facility:H1 Start: 08-24-2022 End: 08-25-2022 Encounter for preprocedural laboratory examination MENDOSA H FAWWAD Facility:H1 Start: 08-21-2022 ambulatory MENDOSA H FAWWAD Facilit y:H1 Start: 07-28-2022 ambulatory MENDOSA FAWWAD Facility: CD:[id number] Start: 07-16-2022 End: 07-17-2022 ambulatory MENDOSA FAWWAD Facility:SHAHZAD [place] Start: 07-16-2022 End: 07-16-2022 Patient encounter procedure Danya Bingham [facility] [place] Start: 06-06-2022 End: 06-07-2022 Emergency department patient visit Yony Aguirre [facility] Adult ED [facility] 45 Start: 05-31-2022 End: 05-31-[address] ALEXANDRU SORIA . Facility:H1 Start: 05-19-2022 End: 05-20-2022 ambulatory SHAIKH MICAH Facility:[facility] Start: 05-19-2022 End: 05-19-2022 Off-Site [facility] Bingham [facility] Start: 05-07-2022 End: 05-07-2022 ambulatory SHAIKH [...] 02-04-2022 Off-Site Danya Bingham [facility] [place] Start: 01-11-2022 Chart Update No PCP None MG-Neurosu [facility] [place] Work Phone: Start: 01-11-2022 End: 01-11-2022 Patient encounter procedure Danya Bingham [facility] Start: 01-07-2022 AUDIT No PCP None MG-Neurosu rgery-[facility] [place] [address] Work Phone: Start: 01-06-2022 End: 01-06-2022 Patient encounter procedure NATALIA MANNING [facility] [place] Start: 10-13-2021 AUDIT No PCP None MG-Neurosu rgery-Miguel Work Phone: Start: 09-29-2021 AUDIT No PCP None MG-Gastroe nterology-[facility] [place] 6 [facility] Work Phone: Start: 09-15-2021 End: 10-02-2021 Evaluation and management of inpatient Dr. LEX FREDERICK Facility:[facility] Start: 09-09-2021 AUDIT No PCP None MG-Neurosu rgery-Miguel Work Phone: Start: 09-08-2021 Office outpatient vi sit 40 minutes No PCP None NM-Ocpuqinqfaar-Gnefe Work Phone: Start: 05-05-2021 Postop follow up vis it related to original px No PCP None KU-Tqsvrjpvisuw-WAVQQ Work Phone: Start: 12-26-2020 End: 01-01-2021 Evaluation and management of inpatient Lex Frederick [facility] [id number] [id number] Preoperative state No PCP None MG-Neuros urgery-[facility] Work Phone: Procedures Date Procedure Procedure Detail Performing Clinician Start: 09-21-[address] EFRAIN FREDERICK Comment on above: Performed By: #### A FPA3 #### [facility] [address] [place] [address] Start: 09-21-[address] EFRAIN FREDERICK Comment on above: Order Comment: VENECIA ESPINO, 09/21/2021 05:08TEST TYPE + SCREEN WAS CANCELLED, 09/21/2021 05:06 NO PHLEB ID ON TUBE. Result Comment: CALL ED RN AFSANEH ESPINO, 09/21/2021 05:08 Performed By: #### A FPA3 #### [facility] [address] [place] [address] Start: 09-17-[address] EFRAIN FREDERICK Comment on above: Performed By: #### T +S #### [facility] [address] [place] [address] Start: 12-27-2020 End: 12-28-2020 Release Blood Product-Packed Red Blood Cells Devante Defta Start: 12-26-2020 Renal function 2000 panel - Serum or Plasma Nabil Awan Appendectomy NATALIAYOVANY MANNING Cholecystectomy NATALIA PER TRISH Hernia NATALIA NIGEL Hysterectomy NATALIAYOVANY MANNING mylogr NATALIA NIGEL Plan of Treatment Date Care Activity Detail Author Start: 10-17-2023 End: 10-17-2023 Patient encounter procedure 10/17/2023 6:30 PM EST Office Visit [facility] [address] [place] [id number] Shaikh Obrien MD [address] [place] [address] [facility] Start: 05-06-2023 Influenza vaccination Influenza Vacc ine (#1) [facility] Start: 11-03-2021 POV, Provider: Lex Frederick, Status: Pen, Time: 2:00 PM POV, Provider: Lex Frederick, Status: Pen, Time: 2:00 PM DU-Nttydepiofsniecg-Bc [place] 6 [facility] Work Phone: Start: 10-07-2021 Admission to [facility] RNSTEPHANIEIT, Provider: NURSE VISIT [facility] [address],MGNEUROSURGERY, Status: Pen, Time: 10:15 AM ED-Achjwkqxctsrdbqg-Eu [facility] 6 [facility] Work Phone: Start: 09-18-2021 [facility] Provider: Lex Frederick, Status: Pen, Time: 8:00 AM [facility] Provider: Lex Frederick, Status: Pen, Time: 8:00 AM HM-Gdhxsgsrjxwt-Dtndb Work Phone: Start: 01-08-2021 Patient encounter procedure Neurosurgery Miguel Start: 12-31-2020 End: 01-01-2022 [facility] Comment on above: please place at beds geraldine for drain removal Start: 12-26-2020 End: 12-27-2021 Naloxone Injectable 0.4 mg IntraVenous Push Once ; (NARCAN)DOSE = 0.2 mg IntraVenous Push Once, PRN patient is unarousable, and respiratory rate lessClinician Notes: HOLD PARTY HOST Infusion and notify H.O. immediately Start: 26-Dec-2020 End: 26-Dec-2021 Ordered: 26-Dec-2020 Nabil Awan Intent Comments: HOLD PARTY HOST Infusion and notify H.O. immediately [facility] Comment on above: HOLD PARTY HOST Infusion an d notify H.O. immediately Start: 2013 Screening for malignant neoplasm of breast Mammogram [facility] Start: 2003 Screening for malignant neoplasm of cervix [facility] Start: 1994 Screening for malignant neoplasm of cervix Pap Smear [facility] Start: 1973 Screening for malignant neoplasm of colon [facility] Immunizations Immunization Date Immunization Notes Care Provider Delfino chu 02-22-2020 tetanus toxoid, redu luis diphtheria toxoid, and acellular pertussis vaccine, adsorbed Danya Bingham [facility] 12-05-2018 hepatitis A vaccine, adult dosage Danya Bingham [facility] Payers Date Payer Category Payer Unknown 1975 Unknown [id number] 2.16. [id number] 1975 Unknown [id number] 2.16. 840.1.993766.3.579.2.356 1975 Unknown [id number] 2.16.84 0.1.271842.3.579.2.593 1975 Unknown [id number] 2.16.84 0.1.947366.3.579.2.593 1975 Unknown [id number] 2.16.84 0.1.896894.3.579.2.593 1975 Unknown [id number] 2.16.84 0.1.095022.3.579.2.593 1975 Unknown [id number] 2.16.84 0.1.536993.3.579.2.593 1975 Unknown [id number] 2.16.84 0.1.925322.3.579.2.593 1975 Unknown [id number] 2.16.84 0.1.061538.3.579.2.593 1975 Unknown [id number] 2.16.84 0.1.518487.3.579.2.593 1975 Unknown [id number] 2.16.84 0.1.387012.3.579.2.593 1975 Unknown [id number] 2.16.84 0.1.511732.3.579.2.593 1975 Unknown [id number] 2.16.84 0.1.084595.3.579.2.593 1975 Unknown [id number] 2.16.84 0.1.089019.3.579.2.593 1975 Unknown [id number] 2.16.84 0.1.619656.3.579.2.593 1975 Unknown [id number] 2.16.84 0.1.972317.3.579.2.593 1975 Unknown [id number] 2.16.84 0.1.629748.3.579.2.593 1975 Unknown [id number] 2.16.84 0.1.100373.3.579.2.593 1975 Unknown [id number] 2.16.84 0.1.940626.3.579.2.593 1975 Unknown [id number] 2.16.8 40.1.436815.3.579.2.727 1975 Unknown [id number] 2.16.8 40.1.418709.3.579.2.727 1975 Unknown [id number] 2.16.8 40.1.553033.3.579.2.727 1975 Unknown [id number] 2.16.8 40.1.978177.3.579.2.727 1975 Unknown [id number] 2.16.8 40.1.360527.3.579.2.727 1975 Unknown [id number] 2.16.8 40.1.711555.3.579.2.727 1975 Unknown [id number] 2.16.8 40.1.659631.3.579.2.727 1975 Unknown [id number] 2.16.8 40.1.521114.3.579.2.1046 1959 Unknown [id number] Social History Date Type Detail Facility [facility] Tobacco smoking consumption unknown [facility] Start: 08-01-2023 End: 08-08-2023 History of drug use History of drug use XS-Aobgvwxzvywb-IOVR C Work Phone: Start: 01-05-2016 End: 08-01-2023 Tobacco smoking status Smokes tobacco daily (finding) [facility] Comment on above: 1ppd 1ppd Start: 08-08-2023 Sex Assigned At Female [facility] History of tobacco use Cigarette Smoker [facility] Start: 08-08-2023 Alcohol intake Lifetime non-d prasanna (finding) [facility] Start: 1975 Sex Assigned At Not on file N [facility] Healthcare Medical Equipment Procedure Code Equipment Code Equipment Origin al Text Equipment Identifier Dates 2 EA, SubLingual , Daily, Refill(s) 0 Start: 01-05-2016 2 EA, SubLingual , Daily, Refill(s) 0 Start: 01-05-2016 2 EA, SubLingual , Daily, Refill(s) 0 Start: 01-05-2016 Functional Status Date Assessment Result Facility 11-26-2022 Functional Status N/A [facility] 07-16-2022 Functional Status N/A [facility] Functional observable [facility] Mental Status Date Assessment Result Facility 12-29-2020 Cognitive functi ons [id number] [facility] Clinical Notes 12-26-2020 to 11-26-2022 Note [...] Document Reviewed: 10/01/2017 Elsevier Patient Education 2020 [employer] Follow Up Care 10/14/2022 11:11:52 With:Zachery HARKINS, CAROLEE Anderson, URO Address: When: Unknown [facility] 09-23-2022 Hospital Discharg e instructions Patient Education [...] including vitamins, herbs, eye drops, creams, and gbpi-jni-ajsfiml medicines. Any problems you or family members [...] provider tells you to take them. Taking dtkb-obb-gphuigq medicines, vitamins, herbs, and supplements. General instructions [...] 08/08/2013 Document Revised: 10/08/2019 Document Reviewed: 10/08/2019 [employer] Patient Education 2019 [employer]. Follow Up Care 08/31/2022 10:49:10 With:Zachery HARKINS, CAROLEE Anderson, URO Address: When: Unknown [facility] [place] 07-16-2022 Hospital Discharg e instructions [...] (electrical nerve stimulation). For women, using a regional medical director to prevent urine leaks. This is a [...] right after experiencing incontinence. General instructions Take fisv-gvb-jmnlbpk and prescription medicines only as told by [...] 09/29/2005 Document Revised: 09/01/2018 Document Reviewed: 12/01/2017 [employer] Patient Education 2019 [employer]in. Follow Up Care 06/15/2022 11:30:52 With:Danya Bingham MD, URL, URO Address: When: Unknown [facility] [place] 02-04-2022 Hospital Discharg e instructions [...] (electrical nerve stimulation). For women, using a regional medical director to prevent urine leaks. This is a [...] right after experiencing incontinence. General instructions Take zppl-tpp-xxmokwl and prescription medicines only as told by [...] 09/29/2005 Document Revised: 09/01/2018 Document Reviewed: 12/01/2017 [employer] Patient Education 2020 Retrophin. 02/04/2022 16:23:10 Calorie Counting for Weight Loss [...] 08/22/2006 Document Revised: 05/11/2019 Document Reviewed: 07/22/2017 [employer] Patient Education 2019 Retrophin. Follow Up Care 02/04/2022 13:28:46 With:Danya Bingham MD, URL, URO Address: When: Unknown [facility] 01-11-2022 Evaluation + Plan note Extrac [...] and Plan Diagnosis Bowel and bladder incontinence (PEK55-OI R32, Billing Diagnosis, Medical). Incontinence without sensory awareness (HNZ69-LU N39.42, Working, Medical). Diagnosis Bowel and bladder incontinence (INE28-KQ R32, Billing Diagnosis, Medical). Incontinence without sensory awareness (TXN41-BG N39.42, Working, Medical). Addendum by Danya Bingham MD on January 11, 2022 10:23 EDT Post procedure diagnosis: Intrinsic sphincter deficiency, acontractile detrusor [facility]05-09-2022 Hospital Discharge instructions Patient Education 01/11/2022 10:22:42 [...] 01/06/2022 11:41:34 With:Danya Bingham Address: [address] [phone] Business (1) When: Unknown Comments:Call for followup appointment in 2-3 weeks With:Danya Bingham Address:Unknown When: Unknown [facility]05-04-2022 Hospital Discharge instructions Patient Education 01/06/2022 10:27:52 [...] program. Other places that provide vaccinations include: [facility] health clinics. Check with your local health department. [facility], where you would pay only what you can afford. To find one near you, check this website: www.[email or web address].org/norq-fo-mtof/ [facility]. These are part of a program [...] information Learn more about cervical cancer from: [employer]: www.acog.org/Patients/FAQs/Cervical-Cancer [employer]: www.cancer.org/cancer/cervicalcancer/ U.S. Centers for Disease [...] 09/05/2016 Document Revised: 09/23/2018 Document Reviewed: 04/19/2017 [employer] Patient Education 2020 [employer] Follow Up Care 11/20/2021 10:16:51 With:NATALIA MANNING PA-C, URL Address: [address] [place] [address] When:01/13/2022 [facility] 01-28-2022 NoteSend Summary: Discharge Summary Providers: [...] Care - New Vital Signs: T PRBPSpO2 [id number]/[id number]% Date/Time10/02 8: 8: 8: 8: 8:00 Range(36.1C [...] placement 09/23 Patient transitioned from post op PARTY HOST to oral pain regimen 09/24 Fitted for [...] or twist. Instead, bend at knees to pickle cutter objects (more content not included)...[facility]01-26-2022 NoteThis report has been cancelled.[facility]01-17-2022 NotePROCEDURE DETAILS Postoperative Diagnosis: lumbar stenosis Surgeon: Dr. Lex Frederick Resident/Fellow/Other Police Superintendent: Chery Awan Procedure: posterior L4-L5 decompression [...] Completion Last Updated: 22-Sep-2021 10:54 by Lex Frederick)[facility]01-17-2022 NoteHistory & Physical Reviewed: /Lactating: Are [...] the note. I personally evaluated the patient [id number] Electronic Signatures: Lex Frederick) (Signed 21-Sep-2021 11:50) Authored: Note Completion Co-Signer: History & Physical Reviewed, ERAS, Consent, Note Completion Jaya Mosquera (Resident)) (Signed 21-Sep-2021 02:51) Authored: History & Physical Reviewed, ERAS, Consent, Note Completion Last Updated: 21-Sep-2021 11:50 by Lex Frederick) References: 1. Data Referenced From MRI Safety Screen v2 19-Sep-2021 19:00[facility]01-15-2022 NoteRehab: Info: Mode of Treatmentoccupational therapy; attempted; OT evaluation initiated with home set-up obtained (1st floor set up/ 0 step entry, lives with , tub shower with chair); Pt with low BP upon arrival 79/54. Second BP reading taken at 71/51. RN notified, further evaluation deferred at this time. OT to reattempt when pt medically appropriate. 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 Exploration of [...] performed and the images transferred to the [employer] ([employer]) system for use in intraoperative image-guided computer-assisted [...] using the torque dri (more content not included)...[facility]01-14-2022 NoteThis report has been cancelled.[facility]01-14-2022 NoteHistory & Physical Reviewed: /Lactating: Are [...] the note. I personally evaluated the patient [id number] Electronic Signatures: Fidel Maciel (Resident)) (Signed 17-Sep-2021 22:49) Authored: History & Physical Reviewed, ERAS, Consent, Note Completion Lex Frederick) (Signed 19-Sep-2021 10:17) Authored: Note Completion Co-Signer: History & Physical Reviewed, ERAS, Consent, Note Completion Last Updated: 19-Sep-2021 10:17 by Lex Frederick) References: 1. Data Referenced From MRI Safety Screen v2 17-Sep-2021 11:28[facility]01-11-2022 NoteReferral Information: Consult requested by (Attending [...] be able to m (more content not included)...[facility]01-11-2022 NoteHistory of Present Illness: /Lactating: Are [...] the note. I personally evaluated the patient [id number] Electronic Signatures: Fidel Maciel (Resident)) (Signed 15-Sep-2021 [...] Plan Last Updated: 16-Sep-2021 10:20 by Lex Frederick)[facility]04-23-2021 History of Present illness Narrative* I just had the pleasure of seeing Mrs. Jesus villarreal in the Neurosurgery Spine Clinic at the [facility]. She is a very pleasant 46-year-old [...] Ms. JESUS hollis. * Lex Frederick MD, [facility], [facility] * Director - Minimally Invasive Spine Surgery * [facility] * Java Security Engineer of Neurological Surgery * [facility] [employer] [facility] [employer] * [place], [place] * Some of this note was completed using [employer] voice recognition technology and sometimes the software misinterprets words. This may include unintended errors with respect to translation of words, typographical errors or grammar errors which may not have been identified prior to finalization of the chart note. Please take this into account when reading this note. XR-Lgtwkfblfxxu-Jgvus Work Phone: [phone] [phone] Reason for referral (narrative)* Reason for Referral: Patient s/p posterior bilateral L1 transpedicular decompression, posterior T7-T8, T8-T9, T9-T10, T0-T11, T11-T12, T12-L1 hutton hernandez osteotomies, Posterior T5-L4 instrumentation and fusion on 12/26 [facility] Future Appointments Appointment Date:01/07/2022 11:00:00 AM Scheduled Provider: Location:[facility] Appointment Type:Urology CALL PAT FT Appointment Date:01/11/2022 08:00:00 AM Scheduled Provider: Location:[facility] Appointment Type:Urology FT Appointment Date:01/11/2022 09:00:00 AM Scheduled Provider: Location:[facility] Appointment Type:Urology FT [facility] + [facility]* Neurological: [id number] 5/5 except hg/io4+ble 5/5incision cdiHead/Neck: Ox3, awake, alertBUE 5 prox, HG/IO4+BLE HF/KE/DF/PF/EHL 5 [facility]* Constitutional: in no acute distressSkin: Well perfusedEyes: OU 3RHead/Neck: atraumatic, normocephal icRespiratory/Thorax: airway intact, good chest expansionCardiovascular: normal rate, regular rhythmGastrointestinal: non-tenderNeurological: NAD, A&[id number] Nerves II-XII: PERRL, EOMI, Face symmetric, Facial SILT, Palate/Tongue midline and symmetric, shoulder shrugs symmetric, hearing intact to finger rubs bilaterallyMotor: RUE D5, B5, T5, HG5, IO5LUE D5, B5, T5, HG5, IO5RLE HF 4+, KE4+, PF4-, DF3LLE HF 4+, KE4+, PF3, DF4-Sensation: SILT throughout all extremitiesPsychological: mood appropriate [facility]* Diagnosis Chronic low back pain, unspecified back pain laterality, unspecified whether sciatica present- Primary Nausea in adult [facility] N[facility] No data available for this section [facility] Discharge instructions* Activity:activity as [...] Certification:Home Care Services Needed: yesSkilled Disciplines Ordered: RN/MANAGER FIELD SERVICE, PT, OTFace to Face Encounter Completed: yesDate of Encounter: [id number] Necessity for Homecare (based on clinical findings): [...] washing dishes, & loading the dryer or lead burner until cleared by MD. * Wound Care:Inspect [...] Neurosurgeon:Physician/Dept/Service: NeurosurgeonDr Josephuled Date/Time: 08-Jan-2021 10:40Location: [facility], [facility] [address] [place], [place] Number: [phone]: 2 week postop/wound check visit; Bring Insurance Card and Photo ID [facility] No data available for this section [facility] progress note No data available for this section [facility] reason for referral (narrative) , urinary incontinence, neurogenic bladder, open bladder neck, possible SP tube placement Referred by: Zachery HARKINS, Danya Rhodes [facility] [place] Summary Purpose Family History Unknown [...] section and content) DATE CREATED AUTHOR 06/20/2019 [facility] DATE CREATED AUTHOR AUTHOR'S ORGANIZ ATION [facility]/20/[facility] DATE CREATED AUTHOR AUTHOR'S ORGANIZ ATION 07/26/2019 [facility] DATE CREATED AUTHOR AUTHOR'S ORGANIZ ATION 12/29/2020 [facility] DATE CREATED AUTHOR AUTHOR'S ORGANIZ ATION 09/16/2021 [facility] DATE CREATED AUTHOR AUTHOR'S ORGANIZ ATION 11/25/2021 [facility] DATE CREATED AUTHOR AUTHOR'S ORGANIZ ATION 12/10/2021 [facility] DATE CREATED AUTHOR AUTHOR'S ORGANIZ ATION 08/06/2022 [facility] DATE CREATED AUTHOR AUTHOR'S ORGANIZ ATION 01/17/2023 [facility] DATE CREATED AUTHOR AUTHOR'S ORGANIZ ATION 03/13/2023 Eugenio Martinez [facility] DATE CREATED AUTHOR AUTHOR'S ORGANIZ ATION 06/09/2023 [facility] <item><item> Privacy Markings (unrecogniz ed section [...] Care Team (unrecognized sect ion and content) Engineer Technical Staff Relationship Specialty Start Date End Date Shaikh [...] BE BASED ON THE PRIMARY CLINICAL RECORDS. [employer] provides no warranty or guarantee of the accuracy or completeness of information in this document.
--- NOTE | 2023-11-21 09:17 | ED.GENADUL1 ---
HPI - General Adult General Chief complaint: Nausea/Vomiting/Diarrhea Stated complaint: VOMITING , ABDOMINAL PAIN Time Seen by Provider: 11/21/23 09:14 Source: patient Mode of arrival: walk-in Limitations: no limitations History of Present Illness HPI narrative: Patient is a 48yo with multiple complaints. Patient is complaining of nausea and vomiting and abdominal discomfort midepigastric discomfort last night and this morning. Patient has indwelling Alvares catheter. Patient hygiene is poor, patient smells of urine as well. There is sediment noted in patient's Alvares catheter. Patient goes to a urologist in [place] monthly to have her Alvares catheter changed and for reevaluation of other urology: Needs. Patient is due to go to [place] tomorrow to have her Alvares catheter changed. Patient has no fever or chills. Patient has no chest pain, shortness of breath, no other acute complaints. All systems are negative except as noted/marked. All systems reviewed and otherwise negative. Nurses note and vital signs reviewed and patient is not hypoxic. General: The patient appears well and in no apparent distress. Patient is resting comfortably on cart. Patient is not toxic, lethargic, or listless Skin: Warm, dry, no pallor noted. There is no rash noted. No petechiae, purpura. Head: Normocephalic, atraumatic Eye: Normal conjunctiva, no drainage, EOMI. PERRL Ears, Nose, Mouth, and Throat: oral mucosa is slightly dry. Patient has extremely poor dental hygiene, missing multiple teeth, multiple eroded teeth and dental caries, no signs of acute intraoral infection, mucous membranes slightly dry Nares patent. Mouth without vesicles. Cardiovascular: Regular Rate and Rhythm, no murmur, gallop, rub Respiratory: Patient is in no distress, no accessory muscle use, lungs are clear to auscultation, no wheezing, rales or rhonchi Back: non-tender, no CVA tenderness bilaterally to percussion. No CT LS midline pain GI: Obese, mild to moderate midepigastric tenderness to palpation, mild upper quadrant minimal discomfort, no peritoneal signs, no flank pain bilateral, no rash, patient does have indwelling Alvares catheter, mild suprapubic tenderness to palpation, otherwise no tenderness to palpation, no masses appreciated. No rebound, guarding, or rigidity noted. No distention Musculoskeletal: Patient has full range of motion of all of the extremities, no motor, sensory, or focal neurological deficits Neurological: A&O x4, normal speech Psychiatric: Cooperative Related Data Home Medications Medication Instructions Recorded Confirmed buprenorphine 8 mg-naloxone 2 mg 2.5 film sublingual Q24H 03/01/23 03/30/23 sublingual film bupropion HCl 150 mg 24 hr tablet, 150 mg PO DAILY 03/01/23 03/30/23 extended release cyclobenzaprine 10 mg tablet 10 mg PO Q8H 03/01/23 03/01/23 diazepam 5 mg tablet 5 mg PO Q8H PRN anxiety 03/30/23 03/30/23 furosemide 40 mg tablet 40 mg PO DAILY 03/30/23 03/30/23 gabapentin 800 mg tablet 800 mg PO TID 03/30/23 03/30/23 oxybutynin chloride 15 mg 15 mg PO DAILY 03/30/23 03/30/23 tablet,extended release 24 hr potassium bicarbonate-citric acid 20 meq PO BID 03/30/23 03/30/23 20 mEq effervescent tablet (Effer-K) promethazine 12.5 mg tablet 12.5 mg PO TID PRN nausea and 03/30/23 03/30/23 vomiting tizanidine 4 mg tablet 4 mg PO Q8H PRN muscle spasticity 03/30/23 03/30/23 zolpidem 12.5 mg tablet,extended 12.5 mg PO DAILY 03/30/23 03/30/23 release,multiphase Previous Rx's Medication Instructions Recorded levofloxacin 750 mg tablet 750 mg PO DAILY 7 days #7 tabs 03/30/23 cephalexin 500 mg capsule 500 mg PO QID 10 days #40 caps 09/08/23 cephalexin 500 mg capsule 500 mg PO Q12H 10 days #20 caps 11/21/23 ondansetron 4 mg disintegrating 4 mg PO Q4H PRN nausea and 11/21/23 tablet vomiting 3 days #6 tabs promethazine 25 mg tablet 25 mg PO BID PRN nausea and 11/21/23 vomiting #7 tabs Allergies Allergy/AdvReac Type Severity Reaction Status Date / Time codeine Allergy Severe Verified 09/08/23 11:22 Penicillins Allergy Severe Anaphylaxis Verified 09/08/23 11:22 quetiapine [From Seroquel] Allergy Severe Seizure Verified 09/08/23 11:22 [facility] Social History Smoking status: Current every day smoker Exam Constitutional Vital Signs, click to edit/add: Last Vital Signs Temp 97.7 F 11/21/23 08:43 Pulse 96 H 11/21/23 12:34 Resp 18 11/21/23 12:34 BP 127/75 11/21/23 12:34 Pulse Ox 95 11/21/23 12:34 Course Vital Signs Vital signs: Vital Signs Temperature 97.7 F 11/21/23 08:43 Pulse Rate 87 11/21/23 08:43 Respiratory Rate 118 H 11/21/23 08:43 Blood Pressure 146/94 H 11/21/23 08:43 Pulse Oximetry 99 11/21/23 08:43 Temperature 97.7 F 11/21/23 08:43 Pulse Rate 96 H 11/21/23 12:34 Respiratory Rate 18 11/21/23 12:34 Blood Pressure 127/75 11/21/23 12:34 Pulse Oximetry 95 11/21/23 12:34 Medical Decision Making MDM Narrative Medical decision making narrative: Patient feels better after IV fluids, patient's initially giving Zofran which did help with nausea but was returning. Patient was then given a dose of IV Compazine. Patient has evidence of urinary tract infection, she was given 1 g of IV Rocephin. [facility]. Patient feels better, patient will see the urologist tomorrow for Alvares catheter change and be reevaluated for other urology on these. Patient is aware of UTI. No questions at discharge Lab Data Lab results reviewed: Yes I reviewed the patient's lab results Labs: Lab Results 11/21/23 11/21/23 Range/Units 09:49 10:30 WBC 11.9 H (4.0-11.0) 10^3/uL RBC 5.64 H (4.20-5.40) 10^6/uL Hgb 16.7 H (12.0-16.0) g/dL Hct 50.2 H (36.0-48.0) % MCV 89.0 (81.0-99.0) fL MCH 29.6 (26.7-34.0) pg MCHC 33.3 (29.9-35.2) g/dL RDW 12.1 (11.0-15.0) % Plt Count 274 (150-450) 10^3/uL MPV 9.7 (9.5-13.5) fL Neut % (Auto) 84.3 H (43.0-75.0) % Lymph % (Auto) 13.6 L (20.5-60.0) % [place] % (Auto) 1.2 L (1.7-12.0) % Eos % (Auto) 0.2 L (0.9-7.0) % Baso % (Auto) 0.4 (0.2-2.0) % Neut # (Auto) 10.0 H (1.4-6.5) 10^3/uL Lymph # (Auto) 1.6 (1.2-3.8) 10^3/uL [place] # (Auto) 0.1 L (0.3-0.8) 10^3/uL Eos # (Auto) 0.0 (0.0-0.7) 10^3/uL Baso # (Auto) 0.1 (0.0-0.1) 10^3/uL Abs Immat Gran (auto) 0.03 (0.00-0.03) 10^3/uL Imm/Tot Granulo (auto) 0.3 (0.0-0.5) % Sodium 140 (136-145) mmol/L Potassium 3.8 (3.5-5.1) mmol/L Chloride 101 (98-107) mmol/L Carbon Dioxide 27.6 (21.0-32.0) mmol/L Anion Gap 15.2 BUN 8.0 (7.0-18.0) mg/dL Creatinine 0.74 (0.55-1.02) mg/dL Est GFR ( Amer) >60 (>=60) Est GFR (Non-Af Amer) >60 (>=60) BUN/Creatinine Ratio 10.8 Glucose 140 H (74-106) mg/dL Calcium 9.2 (8.5-10.1) mg/dL Magnesium 2.0 (1.8-2.4) mg/dL Total Bilirubin 0.4 (0.2-1.0) mg/dL AST 23 (15-37) U/L ALT 28 (14-59) U/L Alkaline Phosphatase 224 H (46-116) U/L Total Protein 8.2 (6.4-8.2) g/dL Albumin 3.6 (3.4-5.0) g/dL Globulin 4.6 g/dL Albumin/Globulin Ratio 0.8 Lipase <10.0 L (16.0-77.0) U/L Urine Color Lt. yellow (YELLOW) Urine Clarity Clear (CLEAR) Urine pH 8.5 (5.0-9.0) Ur Specific [place] 1.020 (1.005-1.025) Urine Protein 100 A (NEG/TRACE) mg/dL Urine Glucose (UA) Negative (NEGATIVE) mg/dL Urine Ketones Trace A (NEGATIVE) mg/dL Urine Occult Blood Large A (NEGATIVE) Urine Nitrite Positive A (NEGATIVE) Urine Bilirubin Negative (NEGATIVE) Urine Urobilinogen 1.0 (0.2-1.0) EU/dL Ur Leukocyte Esterase Moderate A (NEGATIVE) Urine RBC 20-50 A (0-2) #/HPF Urine WBC 10-20 A (NONE SEEN) #/HPF Ur Squamous Epith Cells Rare (NONE/RARE) #/LPF Urine Crystals Seen A (None Seen) #/HPF Triple Phos Crystals Few Amorphous Sediment Moderate Urine Bacteria Large A (NONE SEEN) #/HPF Urine Casts None seen (NONE SEEN) #/LPF Urine Mucus None seen (NONE SEEN) Ur Culture Indicated? Already ordered Discharge Plan Discharge Stand Alone Forms: Portal Instructions Chief Complaint: Nausea/Vomiting/Diarrhea Clinical Impression: Urinary tract infection, Indwelling Alvares catheter present, Gastritis, Nausea & vomiting Patient Disposition: Home, Self-Care Time of Disposition Decision: 12:48 Condition: Fair Prescriptions / Home Meds: New cephalexin 500 mg capsule 500 mg PO Q12H 10 Days Qty: 20 0RF promethazine 25 mg tablet 25 mg PO BID PRN (Reason: nausea and vomiting) Qty: 7 0RF ondansetron 4 mg tablet,disintegrating 4 mg PO Q4H PRN (Reason: nausea and vomiting) 3 Days Qty: 6 0RF No Action diazepam 5 mg tablet 5 mg PO Q8H PRN (Reason: anxiety) furosemide 40 mg tablet 40 mg PO DAILY gabapentin 800 mg tablet 800 mg PO TID oxybutynin chloride 15 mg tablet extended release 24hr 15 mg PO DAILY Effer-K 20 mEq tablet, effervescent 20 meq PO BID promethazine 12.5 mg tablet 12.5 mg PO TID PRN (Reason: nausea and vomiting) tizanidine 4 mg tablet 4 mg PO Q8H PRN (Reason: muscle spasticity) zolpidem 12.5 mg tablet,ext release multiphase 12.5 mg PO DAILY Rx Instructions: HS levofloxacin 750 mg tablet 750 mg PO DAILY 7 Days Qty: 7 0RF bupropion HCl 150 mg tablet extended release 24 hr 150 mg PO DAILY buprenorphine-naloxone 8-2 mg film 2.5 film sublingual Q24H cyclobenzaprine 10 mg tablet 10 mg PO Q8H cephalexin 500 mg capsule 500 mg PO QID 10 Days Qty: 40 0RF Instructions: Gastritis (ED), Urinary Tract Infection in Women (ED), Acute Nausea and Vomiting (ED) Additional Instructions: See your urologist tomorrow at your scheduled appointment, Dr. Maurice for your Alvares catheter change and reevaluation. You have evidence of a significant urinary tract infection today, you have been given 1 g of Rocephin in the ER along with 1 L of IV fluid. Urine culture is pending, we are placing you on 10 days of Keflex until urine cultures come back, trying to pick different antibiotics than you have been on in the past so that we do not increase resistance. Start using antacid medication daily, use Maalox or Mylanta if needed for acute gastritis flareups. Increase fluids Referrals: Shaikh Obrien MD [Primary Care Provider] - 1 week
[2023-11-21] MEDS: 0.9 % SODIUM CHLORIDE 1,000 ML 999 ML IV (09:40)
[2023-11-21] MEDS: lidocaine HCL 15 ML, MAG HYDROX/ALUMINUM HYD/SIMETH 30 ML, HYOSCYAMINE SULFATE 0.25 MG PO (09:41)
[2023-11-21] MEDS: KETOROLAC TROMETHAMINE 30 MG/ML VIAL 15 MG IVP (09:41)
[2023-11-21] MEDS: FAMOTIDINE/PF 20 MG/2 ML VIAL IV (09:41)
[2023-11-21] MEDS: ONDANSETRON PF 4 MG/2 ML VIAL IV (09:41)
[2023-11-21 10:03] LABS: Basophils Absolute Auto 0.1 10^3/uL (0.0-0.1); Basophils Percent Auto 0.4 % (0.2-2.0); Eosinophils Percent Auto 0.2 % (0.9-7.0); Hematocrit 50.2 % (36.0-48.0); Hemoglobin 16.7 g/dL (12.0-16.0); Immature Granulocytes Abs Auto 0.03 10^3/uL (0.00-0.03); Immature Granulocytes Pct Auto 0.3 % (0.0-0.5); Lymphocytes Absolute Auto 1.6 10^3/uL (1.2-3.8); Lymphocytes Percent Auto 13.6 % (20.5-60.0); Mean Corpuscular HGB Conc 33.3 g/dL (29.9-35.2); Mean Corpuscular Hemoglobin 29.6 pg (26.7-34.0); Mean Platelet Volume 9.7 fL (9.5-13.5); Monocytes Absolute Auto 0.1 10^3/uL (0.3-0.8); Monocytes Percent Auto 1.2 % (1.7-12.0); Neutrophils Percent Auto 84.3 % (43.0-75.0); Platelet Count 274 10^3/uL (150-450); Red Blood Count 5.64 10^6/uL (4.20-5.40); Red Cell Distribution Width 12.1 % (11.0-15.0); White Blood Count 11.9 10^3/uL (4.0-11.0)
[2023-11-21 10:16] LABS: Lipase <10.0 U/L (16.0-77.0)
[2023-11-21 10:20] LABS: Alanine Aminotransferase 28 U/L (14-59); Albumin Globulin Ratio 0.8; Albumin Level 3.6 g/dL (3.4-5.0); Alkaline Phosphatase 224 U/L (46-116); Anion Gap 15.2; Aspartate Amino Transferase 23 U/L (15-37); BUN Creatinine Ratio 10.8; Bilirubin Total 0.4 mg/dL (0.2-1.0); Calcium 9.2 mg/dL (8.5-10.1); Carbon Dioxide 27.6 mmol/L (21.0-32.0); Chloride 101 mmol/L (98-107); Estimated GFR (African America >60 (>=60); Estimated GFR (Non-African Ame >60 (>=60); Globulin 4.6 g/dL; Glucose 140 mg/dL (74-106); Potassium 3.8 mmol/L (3.5-5.1); Sodium 140 mmol/L (136-145); Total Protein 8.2 g/dL (6.4-8.2)
[2023-11-21] MEDS: PROCHLORPERAZINE 10 MG/2 ML VIAL IV (10:23)
[2023-11-21 10:54] LABS: Bilirubin Urine NEGATIVE (NEGATIVE); Blood Urine LARGE (NEGATIVE); Clarity Urine CLEAR (CLEAR); Color Urine LT. YELLOW (YELLOW); Glucose Urine UA NEGATIVE (NEGATIVE); Ketones Urine TRACE mg/dL (NEGATIVE); Leukocyte Esterase Urine MODERATE (NEGATIVE); Nitrite Urine POSITIVE (NEGATIVE); Protein Urine 100 mg/dL (NEG/TRACE); pH Urine 8.5 (5.0-9.0)
[2023-11-21 11:05] LABS: Bacteria Urine LARGE #/HPF (NONE SEEN); Cast Seen? NONE SEEN #/LPF (NONE SEEN); Crystals Seen? Seen #/HPF (None Seen); Mucus Urine NONE SEEN (NONE SEEN); Triple Phosphate Crystal Urine FEW
[2023-11-21 11:06] LABS: Amorphous Sediment Urine MODERATE; RBC Urine 20-50 #/HPF (0-2); Squamous Epithelial Cell Urine RARE #/LPF (NONE/RARE)
[2023-11-21 11:07] LABS: Urine Culture Indicated ALREADY ORDERED
[2023-11-21] MEDS: CEFTRIAXONE 1,000 MG in 0.9 % SODIUM CHLORIDE 50 ML 100 MG IV (12:24)
== END 2023-11-21 13:21 | disposition home or self-care (01) ==
PROVIDERS: Emergency Provider Emergency Medicine; PCP Internal Medicine
DX: N39.0 Urinary tract infection, site not specified (principal); K29.70 Gastritis, unspecified, without bleeding; R11.2 Nausea with vomiting, unspecified; Z96.0 Presence of urogenital implants; E66.9 Obesity, unspecified; Z79.899 Other long term (current) drug therapy; F17.210 Nicotine dependence, cigarettes, uncomplicated; Z68.29 Body mass index [BMI] 29.0-29.9, adult
CPT/HCPCS: 36415; 80053; 81001; 83690; 83735; 85025; 87086; 87150; 87186; 96374; 96375; 99284

== ENCOUNTER 2023-12-26 08:00 | Emergency (ER) | payer BC, SELFPAY ==
[2023-12-26 08:07] VITALS: BP 90/60; PULSE 70; TEMP 36.7; O2SAT 95; BMI 34.8
--- NOTE | 2023-12-26 09:00 | ED_ITS ---
HPI HPI - General Adult General Chief complaint: Recheck/Abnormal Lab/Rx Stated complaint: CATH ISSUE Time Seen by Provider: 12/26/23 08:08 Source: patient Mode of arrival: walk-in Limitations: no limitations History of Present Illness HPI narrative: 48-year-old female to the emergency department with chief complaint of catheter dislodgment. She reports that she is having trouble bowel movement and Accidentally pushed out her Alvares catheter. She has no other complaints at this time. She denies any pain or bleeding. Related Data Home Medications ?Medication ?Instructions ?Recorded ?Confirmed buprenorphine 8 mg-naloxone 2 mg 2.5 film sublingual Q24H 03/01/23 03/30/23 sublingual film bupropion HCl 150 mg 24 hr tablet, 150 mg PO DAILY 03/01/23 03/30/23 extended release cyclobenzaprine 10 mg tablet 10 mg PO Q8H 03/01/23 03/01/23 diazepam 5 mg tablet 5 mg PO Q8H PRN anxiety 03/30/23 03/30/23 furosemide 40 mg tablet 40 mg PO DAILY 03/30/23 03/30/23 gabapentin 800 mg tablet 800 mg PO TID 03/30/23 03/30/23 oxybutynin chloride 15 mg 15 mg PO DAILY 03/30/23 03/30/23 tablet,extended release 24 hr potassium bicarbonate-citric acid 20 meq PO BID 03/30/23 03/30/23 20 mEq effervescent tablet (Effer-K) promethazine 12.5 mg tablet 12.5 mg PO TID PRN nausea and 03/30/23 03/30/23 vomiting tizanidine 4 mg tablet 4 mg PO Q8H PRN muscle spasticity 03/30/23 03/30/23 zolpidem 12.5 mg tablet,extended 12.5 mg PO DAILY 03/30/23 03/30/23 release,multiphase Previous Rx's ?Medication ?Instructions ?Recorded levofloxacin 750 mg tablet 750 mg PO DAILY 7 days #7 tabs 03/30/23 cephalexin 500 mg capsule 500 mg PO QID 10 days #40 caps 09/08/23 cephalexin 500 mg capsule 500 mg PO Q12H 10 days #20 caps 11/21/23 ondansetron 4 mg disintegrating 4 mg PO Q4H PRN nausea and 11/21/23 tablet vomiting 3 days #6 tabs promethazine 25 mg tablet 25 mg PO BID PRN nausea and 11/21/23 vomiting #7 tabs fosfomycin tromethamine 3 gram 3 g PO Q3D 3 doses #1 ea 12/26/23 oral packet Allergies Allergy/AdvReac Type Severity Reaction Status Date / Time codeine Allergy Severe Verified 09/08/23 11:22 Penicillins Allergy Severe Anaphylaxis Verified 09/08/23 11:22 quetiapine [From Seroquel] Allergy Severe Seizure Verified 09/08/23 11:22 Opioid HPI Opioid Management Most Recent Opioid Data: Last Pain Scale 8 11/21/23 09:41 Review of Systems ROS Status of ROS 10 or more systems reviewed and unremark able except as noted in history and below PFSH [facility] Social History Smoking status: Current every day smoker Exam Narrative Exam Narrative: VITALS: I have reviewed the triage vital signs. GENERAL: Unkempt adult female in no distress NEURO: Alert and oriented. Moves all extremities. Face is symmetric and expressive. EYES: PERRL. No scleral icterus or conjunctival injection. No discharge. HENT: Normocephalic, atraumatic. Hearing is grossly intact. Nares grossly patent and without discharge. Mucous membranes moist. NECK: No JVD. Patient moves neck without restriction. GI/: Abdomen is soft and non-tender. Normoactive bowel sounds. EXTREMITIES: Symmetric muscle bulk. No joint swelling. No clubbing, cyanosis, or deformity. SKIN: Warm and dry. Normal turgor. No rash or lesions appreciated. PSYCH: Mood, affect, and interaction is appropriate to the setting. Constitutional Vital Signs, click to edit/add: Last Vital Signs Temp 98.0 F 12/26/23 08:07 Pulse 70 12/26/23 08:07 Resp 18 12/26/23 08:07 BP 90/60 12/26/23 08:07 Pulse Ox 95 12/26/23 08:07 O2 Del Method Room Air 12/26/23 08:07 Course Vital Signs Vital signs: Vital Signs Temperature 98.0 F 12/26/23 08:07 Pulse Rate 70 12/26/23 08:07 Respiratory Rate 18 12/26/23 08:07 Blood Pressure 90/60 12/26/23 08:07 Pulse Oximetry 95 12/26/23 08:07 Oxygen Delivery Method Room Air 12/26/23 08:07 Temperature 98.0 F 12/26/23 08:07 Pulse Rate 70 12/26/23 08:07 Respiratory Rate 18 12/26/23 08:07 Blood Pressure 90/60 12/26/23 08:07 Pulse Oximetry 95 12/26/23 08:07 Oxygen Delivery Method Room Air 12/26/23 08:07 Medical Decision Making MDM Narrative Medical decision making narrative: 48-year-old female to the emergency department with chief complaint of Alvares catheter dislodgment. Vital stable, the patient is afebrile. Nursing staff is able to easily replaced her Alvares catheter. We'll obtain a urinalysis. I did review her previous microbiology results And she grew to very resistant organisms. There is no antibiotic to cover these. Fosfomycin ?3 as prescribed. Medical Records Medical records reviewed: Yes I reviewed the patient's medical records Lab Data Lab results reviewed: Yes I reviewed the patient's lab results Labs: Lab Results 12/26/23 Range/Units 08:50 Urine Color Yellow (YELLOW) Urine Clarity Slightly cloudy A (CLEAR) Urine pH 5.5 (5.0-9.0) Ur Specific [place] 1.025 (1.005-1.025) Urine Protein Trace (NEG/TRACE) mg/dL Urine Glucose (UA) Negative (NEGATIVE) mg/dL Urine Ketones Negative (NEGATIVE) mg/dL Urine Occult Blood Large A (NEGATIVE) Urine Nitrite Negative (NEGATIVE) Urine Bilirubin Negative (NEGATIVE) Urine Urobilinogen 1.0 (0.2-1.0) EU/dL Ur Leukocyte Esterase Small A (NEGATIVE) Urine RBC 5-10 A (0-2) #/HPF Urine WBC 50-75 A (NONE SEEN) #/HPF Ur Squamous Epith Cells Few A (NONE/RARE) #/LPF Urine Bacteria Moderate A (NONE SEEN) #/HPF Urine Mucus Small A (NONE SEEN) Ur Culture Indicated? Yes Discharge Plan Discharge Stand Alone Forms: Portal Instructions Chief Complaint: Recheck/Abnormal Lab/Rx Clinical Impression: UTI (urinary tract infection), Indwelling Alvares catheter present, Urinary catheter (Alvares) change required Patient Disposition: Home, Self-Care Time of Disposition Decision: 09:37 Condition: Good Mode of Transportation: Private Vehicle Prescriptions / Home Meds: New fosfomycin tromethamine 3 gram packet 3 g PO Q3D Qty: 1 0RF No Action diazepam 5 mg tablet 5 mg PO Q8H PRN (Reason: anxiety) furosemide 40 mg tablet 40 mg PO DAILY gabapentin 800 mg tablet 800 mg PO TID oxybutynin chloride 15 mg tablet extended release 24hr 15 mg PO DAILY Effer-K 20 mEq tablet, effervescent 20 meq PO BID promethazine 12.5 mg tablet 12.5 mg PO TID PRN (Reason: nausea and vomiting) tizanidine 4 mg tablet 4 mg PO Q8H PRN (Reason: muscle spasticity) zolpidem 12.5 mg tablet,ext release multiphase 12.5 mg PO DAILY Rx Instructions: HS levofloxacin 750 mg tablet 750 mg PO DAILY 7 Days Qty: 7 0RF bupropion HCl 150 mg tablet extended release 24 hr 150 mg PO DAILY buprenorphine-naloxone 8-2 mg film 2.5 film sublingual Q24H cyclobenzaprine 10 mg tablet 10 mg PO Q8H cephalexin 500 mg capsule 500 mg PO QID 10 Days Qty: 40 0RF cephalexin 500 mg capsule 500 mg PO Q12H 10 Days Qty: 20 0RF promethazine 25 mg tablet 25 mg PO BID PRN (Reason: nausea and vomiting) Qty: 7 0RF ondansetron 4 mg tablet,disintegrating 4 mg PO Q4H PRN (Reason: nausea and vomiting) 3 Days Qty: 6 0RF Print Language: Yakut Instructions: Urinary Tract Infection in Women (ED) Referrals: Shaikh Obrien MD [Primary Care Provider] - 1 week
[2023-12-26 09:03] LABS: Bilirubin Urine NEGATIVE (NEGATIVE); Blood Urine LARGE (NEGATIVE); Color Urine YELLOW (YELLOW); Glucose Urine UA NEGATIVE (NEGATIVE); Ketones Urine NEGATIVE (NEGATIVE); Leukocyte Esterase Urine SMALL (NEGATIVE); Nitrite Urine NEGATIVE (NEGATIVE); Protein Urine TRACE mg/dL (NEG/TRACE); Specific Gravity Urine 1.025 (1.005-1.025); pH Urine 5.5 (5.0-9.0)
[2023-12-26 09:10] LABS: Clarity Urine SLIGHTLY CLOUDY (CLEAR)
[2023-12-26 09:12] LABS: Urine Microscopic Indicated YES
[2023-12-26 09:13] LABS: Bacteria Urine MODERATE #/HPF (NONE SEEN); WBC Urine 50-75 #/HPF (NONE SEEN)
[2023-12-26 09:14] LABS: Mucus Urine SMALL (NONE SEEN); Squamous Epithelial Cell Urine FEW #/LPF (NONE/RARE)
[2023-12-26 09:15] LABS: Urine Culture Indicated YES
== END 2023-12-26 09:48 | disposition home or self-care (01) ==
PROVIDERS: Emergency Provider Student in an Organized Health Care Education/Training Program; PCP Internal Medicine
DX: Z46.6 Encounter for fitting and adjustment of urinary device (principal); N39.0 Urinary tract infection, site not specified; F17.210 Nicotine dependence, cigarettes, uncomplicated; Z79.899 Other long term (current) drug therapy
CPT/HCPCS: 81001; 87086; 99284

== ENCOUNTER 2024-01-07 22:03 | Emergency (ER) | payer BC, SELFPAY ==
--- OUTSIDE RECORDS SUMMARY | 2024-01-07 22:10 | XMS_ITS | CCD ---
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 LEX FREDERICK Admitting Unava ilable OTONIEL, Dr. LEX DE LOS SANTOS Attending Unava ilable Patient, Unavailable Referring Unavailable Timothy, Dr. Bhakta Attending Unavailable [facility] Primary Care Unavailable PÉREZ PATINO Attending Unavailable PÉREZ PATINO Admitting Unavailable JON, DR ABHINAV Livingston Attending Unavailabl e FAWWAD, MENDOSA H Primary Care Unavailable JON, DR ABHINAV Livingston Admitting Unavailabl jacque WEBB, DR ABHINAV Livingston Consulting Unavailrenee HUTTON, DR CLIF Santana Admitting Unavailable URIAH, DR CLIF Santana Consulting Unavailable [facility] Primary Care Unavailable URIAH, DR CLIF Santana Attending Unavailable IVON AMARO Admitting Unavailable IVON AMARO Consulting Unavailable FAWMID, MENDOSA H Primary Care Unavailable IVON AMARO Attending Unavailable LALI BENITEZ Admitting Unavailable LALI BENITEZ Consulting Unavailable FAWMID, MENDOSA H Primary Care Unavailable LALI BENITEZ Attending Unavailable FAWWAD, MENDOSA H Primary Care Unavailable LUE ., DANYA M Admitting Unavailable LUE . DANYA M Attending Unavailable FAWMID, MENDOSA H Primary Care Unavailable LUE ., DANYA M Admitting Unavailable LUE ., DANYA M Consulting Unavailable LUE ., DANYA M Attending Unavailable JON, DR ABHINAV Livingston Attending Unavailabl e [facility] Primary Care Unavailable JON, DR ABHINAV Livingston Admitting Unavailabl e REINECK, DR ABHINAV Livingston Consulting Unavailabl e VETO ., IVON Admitting Unavailable VETO ., IVON Attending Unavailable [facility] Primary Care Unavailable PATRICKDEBORAH SHARIF Consulting Unavailable [facility] Primary Care Unavailable REINMAXINE, DR ABHINAV Livingston Admitting Unavailabl e REINECK, DR ABHINAV Livingston Consulting Unavailabl e REINECK, DR ABHINAV Livingston Attending Unavailabl e HAY ., DR LOW Admitting Unavailable [facility] Primary Care Unavailable HAY ., DR LOW Attending Unavailable ZIEBER, DR ENRIQUE Santana Consulting Unavailable HAY ., DR LOW Consulting Unavailable LUE ., DANYA Aponte Admitting Unavailable LUE ., DANYA Aponte Attending Unavailable [facility] Primary Care Unavailable [facility] Primary Care Unavailable LUE ., DANYA M Admitting Unavailable LUE ., DANYA Aponte Consulting Unavailable LUE ., DANYA Aponte Attending Unavailable CANDICE MATTA Consulting Unava ilRACHEL Kirk Consulting Unavailable DIAB ., KYRA Admitting Unavailable [facility] Primary Care Unavailable DIAB ., KYRA Attending Unavailable GRECHNY .BONITA Consulting Unavailabl e [facility] Primary Care Unavailable LUE ., DANYA M Admitting Unavailable LUE ., DANYA Aponte Consulting Unavailable LUE ., DANYA Aponte Attending Unavailable PAY ., DR RODRIGUEZ Admitting Unavailable PAY ., DR RODRIGUEZ Consulting Unavailable [facility] Primary Care Unavailable PAY ., DR RODRIGUEZ Attending Unavailable [facility] Primary Care Unavailable JON, DR ABHINAV Livingston Admitting Unavailabl e JON, DR ABHINAV Livingston Consulting Unavailabl e JON, DR ABHINAV Livingston Attending Unavailabl KORIN Mccarthy Consulting Unavailable Otoniel, Dr. Lex De Los Santos Attending Unava ilcourtney Obrien MD, [facility] Care Provider [facility] Primary [facility] Unavailable LueDanya. Attending Unavailable Allergies Allergy Classification Reported Allergen(s) Allergy Type Date of Onset Reaction(s) Facility Opioid Agonists (1 source) Codeine Drug Allergy Unknown [facility] Penicillins (antibiotic) (1 source) Penicillin Drug Allergy Unknown [facility] QUEtiapine (1 source) QUEtiapine Drug Allergy Unknown [facility] (20 sources) Codeine; Translations: [Codeine] Drug Allergy 3 Hives [facility] Work Phone: (20 sources) Penicillins; Translations: [Penicillins] Allergy to drug (finding) Hives, Unknown [facility] Work Phone: (8 sources) Promethazine; Translations: [promethazine] Drug Allergy [facility] (1 source) QUEtiapine Drug Allergy Seizures [facility] (2 sources) Codeine Drug Allergy 3 The [facility] Repository (3 sources) gabapentin; Translations: [Neurontin] Drug Allergy [facility] Rep[facility] (1 source) Levamisole Drug Allergy [facility] (1 source) Morphine Drug Allergy 0 [facility] (2 sources) Penicillins Drug allergy (disorder) 3 The [facility] (1 source) QUEtiapine Drug Allergy 3 The [facility] (1 source) Penicillins Drug Allergy 3 Hives, GI intolerance [facility] Healthcare (1 source) QUEtiapine Drug Allergy 3 Unknown [facility] Medications Current Medications Medication Drug Class(es) [...] 2 cap(s), Refills(s) 0, [facility]: [id number], 156, cm, 07/16/22 10:58:00 EST, Height/Length Dosing, [...] day(s), # 2 tab(s), Refills(s) 0, [facility] [facility], 156, cm, 01/06/22 10:53:00 EDT, Height/Length [...] Allowed docusate sodium 50 mg / sennosides, shelter 8.6 mg oral tablet (2 sources) Start: [...] Active Start: 09-30-2021 take 1 capsule by [facility] once daily DULoxetine 30 mg oral delayed [...] 0 Active take 2 tablets by mo uth once daily as needed furosemide 20 mg oral tablet ; 2 tab(s) orally once a day, As Needed Quantity: 0 Refills: 0 Ordered: 15-Sep-2021 Enrique Egan Generic Substitution Allowed take 1 tablet by marlen th once daily as needed furosemide 20 mg [...] Start: 01-05-2016 take 2 capsules by m outh three times daily Neurontin 100 mg Cap 200 mg = 2 cap(s), Oral, TID, Refills(s) 0 Start Date: 01/05/16 Status: Ordered take 1 tablet by [facility] three times daily gabapentin 800 mg oral [...] Daily, # 30 tab(s), Refills(s) 3, Pharmacy: [address], 156, cm, 02/04/22 15:47:00 EDT, Height/Length Dosing, 78, kg, 02/04/22 15:47:00 EDT, Weight Dosing Start Date: 02/25/22 Status: Ordered nystatin 100 unt/mg topical powder (1 source) Polyene Antifungal Start: 03-07-2023 Nyamyc 695550 UNIT/GM powder Apply 1 application topically in [...] Daily, # 30 tab(s), Refills(s) 11, [facility]: [id number], 156, cm, 07/16/22 10:58:00 EST, Height/Length Dosing, 78, kg, 07/16/22 10:58:00 EST, Weight Dosing Start Date: 10/04/22 Status: Ordered Start: 07-16-2022 take 1 tablet by marlen th once daily oxybutynin 10 mg ER Tab 10 mg = 1 tab(s), Oral, Daily, # 30 tab(s), Refills(s) 11, Pharmacy: [id number], 156, cm, 07/16/22 10:58:00 EST, Height/Length Dosing, 78, kg, 07/16/22 10:58:00 EST, Weight Dosing Start Date: 07/16/22 Status: Ordered Start: 03-10-2022 take 1 tablet by marlen th once daily oxybutynin 10 mg ER Tab 10 mg = 1 tab(s), Oral, Daily, # 30 tab(s), Refills(s) 3, Pharmacy: [facility] [address] [facility], 156, cm, 02/04/22 15:47:00 EDT, Height/Length [...] 07-Jan-2021 Generic Substitution Allowed polyethylene glycol 3350 84410 mg powder for oral solution (2 sources) [...] Daily, # 30 cap(s), Refills(s) 0, Pharmacy: [address], 156, cm, 01/07/22 13:43:00 EDT, Height/Length [...] 2 cap(s), Refills(s) 0, [facility]: [id number], 156, cm, 11/26/22 8:15:00 EDT, Height/Length Dosing, 78, kg, 03/... Start Date: 11/26/22 Status: Ordered ondansetron 4 mg oral tablet (13 sources) Serotonin-3 Receptor Antagonist Start: 10-28-2020 Zofran 4 MG TABS Quantity: 0 Refills: 0 Ordered: 28-Oct-2020 DO Start : 28-Oct-2020 Active Zofran 4 mg oral tablet ; 1 tab(s) oral Quantity: 0 Refills: 0 Ordered: 05-Dec-2020 Carole Mcdaniel Status: Discontinued Generic Substitution Allowed polyethylene glycol 3350 812244 mg / potassium chloride 2970 mg / sodium bicarbonate 6740 mg / sodium chloride 5860 mg / sodium sulfate 50711 mg powder for oral solution (8 sources) [...] spine] Episodic Other aftercare (2 sources) Other longterm (current) drug therapy; Translations: [Other longterm (current) drug therapy] Onset: 06-07-2022 Episodic Other [...] Test Name Value Interpretation Reference Range Facility Outside Recordson 12-28-2023 Outside Records [id number]#[id number] [facility] Physician Orderon 12-14-2023 Physician Order [id number]#1.00TIFF [facility] ED Note-Physicianon 03-14-20 ED Note-Physician [id number]#[id number]:127 [facility] ED Note-Physicianon 01-23-20 ED Note-Physician [id number]#1.00CD:127 [facility] ED Note-Physician [id number]#1.00CD:127 [facility] Lab Reportson 01-22-2023 Lab Reports [id number]#[id number]:127 [facility] Patient Correspondenceon Patient Correspondence [id number]#[id number]:127 [facility] CULTURE URINEon 01-16-2023 CULTURE URINE Isolate 1 [...] R F Nitrofurantoin <=16 S F Normal [facility] Comment on above: Performed By: #### U MICRO, ERUR #### [facility] [address] [place] [address] Dr. Alfredo Lizama CBC AUTO DIFFon 01-13-2023 BASO # 0.1 103/ul Normal 0.0-0.1 [facility] Comment on above: Performed By: #### U MICRO, ERUR #### [facility] [address] [place] [address] Dr. Alfredo Lizama Basophils/100 WBC (Bld) 0.7 % Normal 0.2-2.0 [facility] Comment on above: Performed By: #### U MICRO, ERUR #### [facility] [address] [place] [address] Dr. Alfredo Lizama EO # 0.3 103/ul Normal 0.0-0.7 [facility] Comment on above: Performed By: #### U MICRO, ERUR #### [facility] [address] [place] [address] Dr. Alfredo Lizama Eosinophils/100 WBC (Bld) 3.2 % Normal 0.9-7.0 [facility] Comment on above: Performed By: #### U MICRO, ERUR #### [facility] [address] [place] [address] Dr. Alfredo Lizama Erythrocyte distribution width (RBC) [Ratio] 13.0 % Normal 11.0-15.0 [facility] Comment on above: Performed By: #### U MICRO, ERUR #### [facility] [address] [place] [address] Dr. Alfredo Lizama Hematocrit (Bld) [Volume fraction] 43.2 % Normal 36.0-48.0 [facility] Comment on above: Performed By: #### U MICRO, ERUR #### [facility] [address] [place] [address] Dr. Alfredo Lizama Hemoglobin (Bld) [Mass/Vol] 14.1 g/dL Normal 12.0-16.0 [facility] Comment on above: Performed By: #### U MICRO, ERUR #### [facility] [address] [place] [address] Dr. Alfredo Lizama IG # 0.02 10e3/ul Normal 0.00-0.03 [facility] Comment on above: Performed By: #### U MICRO, ERUR #### [facility] [address] [place] [address] Dr. Alfredo Lizama IG % 0.2 % Normal 0.0-0.5 [facility] Comment on above: Performed By: #### U MICRO, ERUR #### [facility] [address] [place] [address] Dr. Alfredo Lizama LYMPH # 3.0 103/ul Normal 1.2-3.8 The [facility] Comment on above: Performed By: #### U MICRO, ERUR #### [facility] [address] [place] [address] Dr. Alfredo Lizama Lymphocytes/100 WBC (Bld) 35.6 % Normal 20.5-60.0 [facility] Comment on above: Performed By: #### U MICRO, ERUR #### [facility] [address] [place] [address] Dr. Alfredo Lizama MANUAL DIFF REQ NO Normal The [facility] Comment on above: Performed By: #### U MICRO, ERUR #### [facility] [address] [place] [address] Dr. Alfredo Lizama MCH (RBC) [Entitic mass] 29.4 pg Normal 26.7-34.0 [facility] Comment on above: Performed By: #### U MICRO, ERUR #### [facility] [address] [place] [address] Dr. Alfredo Lizama MCHC (RBC) [Mass/Vol] 32.6 g/dL Normal 29.9-35.2 The [facility] Comment on above: Performed By: #### U MICRO, ERUR #### [facility] [address] [address] [address] Alfredo Lizama MCV (RBC) [Entitic vol] 90.0 fL Normal 81.0-99.0 [facility] Comment on above: Performed By: #### U MICRO, ERUR #### [facility] [address] [place] [address] Dr. Alfredo Lizama MONO # 0.4 103/ul Normal 0.3-0.8 [facility] Comment on above: Performed By: #### U MICRO, ERUR #### [facility] [address] [place] [address] Dr. Alfredo Lizama Monocytes/100 WBC (Bld) 4.8 % Normal 1.7-12.0 [facility] Comment on above: Performed By: #### U MICRO, ERUR #### [facility] [address] [place] [address] Dr. Alfredo Lizama NEUT # 4.7 103/ul Normal 1.4-6.5 The [facility] Comment on above: Performed By: #### U MICRO, ERUR #### [facility] [address] [place] [address] Dr. Alfredo Lizama Neutrophils/100 WBC (Bld) 55.5 % Normal 43.0-75.0 [facility] Comment on above: Performed By: #### U MICRO, ERUR #### [facility] [address] [place] [address] Dr. Alfredo Lizama Platelet mean volume (Bld) [Entitic vol] 9.5 fL Normal 9.5-13.5 The [facility] Comment on above: Performed By: #### U MICRO, ERUR #### [facility] [address] [place] [address] Dr. Alfredo Lizama PLT 267 103/ul Normal 150-450 [facility] Comment on above: Performed By: #### U MICRO, ERUR #### [facility] [address] [place] [address] Dr. Alfredo Lizama RBC 4.80 106/ul Normal 4.20-5.40 The [facility] Comment on above: Performed By: #### U MICRO, ERUR #### [facility] [address] [place] [address] Dr. Alfredo Lizama WBC 8.5 103/ul Normal 4.0-11.0 [facility] Comment on above: Performed By: #### U MICRO, ERUR #### [facility] [address] [place] [address] Dr. Alfredo Lizama ER URINE PROFILEon 3 Bilirubin Ql (U) Negative Normal NEGATIVE The [facility] Comment on above: Performed By: #### Jacque ESTRADA UMICRO #### [facility] [address] [place] [address] Dr. Alfredo Lizama Clarity (U) CLOUDY Abnormal CLEAR [facility] Comment on above: Performed By: #### Jacque ESTRADA UMICRO #### [facility] [address] [place] [address] Dr. Alrfedo Lizama Color (U) YELLOW Normal YELLOW The [facility] Comment on above: Performed By: #### Jaqcue ESTRADA UMICRO #### [facility] [address] [place] [address] Dr. Alfredo RAYMUNDO A micrscopic examina tion will be performed if indicated. Normal The [facility] Comment on above: Performed By: #### E SEAN UMICRO #### [facility] [address] [place] [address] Dr. Alfredo Lizama Glucose Ql (U) Negative Normal NEGATIVE The [facility] Comment on above: Performed By: #### Jacque ESTRADA UMICRO #### [facility] [address] [place] [address] Dr. Alfredo Lizama Hemoglobin Ql (U) MODERATE Abnormal NEGATIVE The [facility] Comment on above: Performed By: #### Jacque ESTRADA UMICRO #### [facility] [address] [place] [address] Dr. Alfredo Lizama Ketones Ql (U) TRACE Abnormal NEGATIVE [facility] Comment on above: Performed By: #### Jacque ESTRADA, UMICRO #### [facility] [address] [place] [address] Dr. Alfredo Lizama LEUKOCYTES SMALL Abnormal NEGATIVE The [facility] Comment on above: Performed By: #### Jacque ESTRADA, UMICRO #### [facility] [address] [place] [address] Dr. Alfredo Lizama Nitrite Ql (U) Negative Normal NEGATIVE [facility] Comment on above: Performed By: #### Jacque ESTRADA, UMICRO #### [facility] [address] [place] [address] Dr. Alfredo Lizama pH (U) 8.0 [pH] Normal 5-9 [facility] Comment on above: Performed By: #### Jacque ESTRADA, UMICRO #### [facility] [address] [place] [address] Dr. Alfredo Lizama Protein (U) [Mass/Vol] 100 mg/dL Abnormal NEGATIVE/ TRACE [facility] Comment on above: Performed By: #### Jacque ESTRADA, UMICRO #### [facility] [address] [place] [address] Dr. Alfredo Lizama SPEC GRAVITY 1.015 Normal 1.005-<=1.0 25 [facility] Comment on above: Performed By: #### Jacque ESTRADA, UMICRO #### [facility] [address] [place] [address] Dr. Alfredo Lizama UR MICRO IND INDICATED Normal The [facility] Comment on above: Performed By: #### Jacque ESTRADA, UMICRO #### [facility] [address] [place] [address] Dr. Alfredo Lizama Urobilinogen Qn (U) 1.0 {Tesha'U}/dL Normal 0.2 - 1. 0 The [facility] Comment on above: Performed By: #### Jacque ESTRADA, UMICRO #### [facility] [address] [place] [address] Dr. Alfredo Lizama PROF CHEM 8 (BAS METB)on Anion gap [Moles/Vol] 8.4 mmol/L Normal [facility] Comment on above: Performed By: #### U MICRO, ERUR #### [facility] [address] [place] [address] Dr. Alfredo Lizama Calcium [Mass/Vol] 8.7 mg/dL Normal 8.5-10.1 [facility] Comment on above: Performed By: #### U MICRO, ERUR #### [facility] [address] [place] [address] Dr. Alfredo Lizama Chloride [Moles/Vol] 107 mmol/L Normal 98-107 The [facility] Comment on above: Performed By: #### U MICRO, ERUR #### [facility] [address] [place] [address] Dr. Alfredo Lizama CO2 [Moles/Vol] 28.3 mmol/L Normal 21.0-32.0 The [facility] Comment on above: Performed By: #### U MICRO, ERUR #### [facility] [address] [place] [address] Dr. Alfredo Lizama Creatinine [Mass/Vol] 0.70 mg/dL Normal 0.55-1.02 The [facility] Comment on above: Performed By: #### U MICRO, ERUR #### [facility] [address] [place] [address] Dr. Alfredo Lizama EGFR-AF TRINIDADIAN >60 Normal >=60 The [facility] Comment on above: Performed By: #### U MICRO, ERUR #### [facility] [address] [place] [address] Dr. Alfredo Lizama EGFR-NON AF TRINIDADIAN >60 Normal >=60 The [facility] Comment on above: Performed By: #### U MICRO, ERUR #### [facility] [address] [place] [address] Dr. Alfredo Lizama Glucose [Mass/Vol] 97 mg/dL Normal 74-106 The [facility] Comment on above: Performed By: #### U MICRO, ERUR #### [facility] [address] [place] [address] Dr. Alfredo Lizama Potassium [Moles/Vol] 3.7 mmol/L Normal 3.5-5.1 The [facility] Comment on above: Performed By: #### U MICRO, ERUR #### [facility] [address] [place] [address] Dr. Alfredo Lizama Sodium [Moles/Vol] 140 mmol/L Normal 136-145 The [facility] Comment on above: Performed By: #### U MICRO, ERUR #### [facility] [address] [place] [address] Dr. Alfredo Lizama Urea nitrogen [Mass/Vol] 7.0 mg/dL Normal 7.0-18.0 [facility] Comment on above: Performed By: #### U MICRO, ERUR #### [facility] [address] [place] [address] Dr. Alfredo Lizama Urea nitrogen/Creatinine [Mass ratio] 10.0 mg/mg Normal [facility] Comment on above: Performed By: #### U MICRO, ERUR #### [facility] [address] [place] [address] Dr. Alfredo Lizama URINE MICROSCOPIC ONLYon AMORPHOUS CRYSTALS FEW Normal The [facility] Comment on above: Performed By: #### Jacque RUEsther UMICRO #### [facility] [address] [place] [address] Dr. Alfredo Lizama BACTERIA LARGE Abnormal NONE SEEN [facility] Comment on above: Performed By: #### E RUR UMICRO #### [facility] [address] [place] [address] Dr. Alfredo Lizama Bacteria identified Cx Nom (U) INDICATED Normal The [facility] Comment on above: Performed By: #### E RUR UMICRO #### [facility] [address] [place] [address] Dr. Alfredo Lizama CAST NONE SEEN Normal NONE SEEN The [facility] Comment on above: Performed By: #### E RUR UMICRO #### [facility] [address] [place] [address] Dr. Alfredo Lizama Crystals LM Nom (Urine sed) SEEN Abnormal NONE SEEN [facility] Comment on above: Performed By: #### E RUR UMICRO #### [facility] [address] [address] [address] Alfredo Lizama Epithelial cells LM Ql (Urine sed) RARE Normal NONE SEEN /RARE The [facility] Comment on above: Performed By: #### E RUR, UMICRO #### [facility] [address] [address] [address] Alfredo Lizama MUCOUS NONE SEEN Normal NONE SEEN The [facility] Comment on above: Performed By: #### E RUR, UMICRO #### [facility] [address] [address] [address] Alfredo Lizama RBC 2-5 Abnormal 0-2 The [facility] Comment on above: Performed By: #### E SEAN UMICRO #### [facility] [address] [place] [id number] Dr. Alfredo Lizama TRIPLE PHOS CRYSTALS FEW Normal The [facility] Comment on above: Performed By: #### E SEAN UMICRO #### [facility] [address] [address] [address] Alfredo Lizama WBC 75-100 Abnormal NONE SEEN The [facility] Comment on above: Performed By: #### E SEAN UMICRO #### [facility] [address] [place] [address] Dr. Alfredo Lizama [facility] Patient Letter [facility] (Inserted Image. Shelly ble to display) January 10, 2023 MORALES LEE [id number] [place] [address] MORALES LEE 1975 Dear Morales, I am corresponding with you by certified mail because of repeat non compliance. You missed your catheter exchange appointment on 12/31/22. It is recommended your Alvares catheter be exchanged every 4 weeks to prevent encrustation and infection. Also you were referred to Dr Zhang at [facility] for further evaluation regarding [...] [facility] [address], [place] [address] [facility] CULTURE URINEon 12-25-2022 CULTURE URINE Isolate 1 [...] F Trimethoprim/Sulfamethoxazo le <=20 S F Normal [facility] Comment on above: Performed By: #### U MICRO, ERUR #### [facility] [address] [address] [address] Alfredo Lizama AMYLASEon 11-09-2022 Amylase [Catalytic activity/Vol] 14 U/L Critically low 25-115 [facility] Comment on above: Performed By: #### U MICRO, ERUR #### [facility] [address] [address] [address] Alfredo Lizama CBC AUTO DIFFon 11-09-2022 BASO # 0.1 103/ul Normal 0.0-0.1 [facility] Comment on above: Performed By: #### U MICRO, ERUR #### [facility] [address] [address] [address] Alfredo Lizama Basophils/100 WBC (Bld) 0.8 % Normal 0.2-2.0 [facility] Comment on above: Performed By: #### U MICRO, ERUR #### [facility] [address] [address] [address] Alfredo Lizama EO # 0.2 103/ul Normal 0.0-0.7 [facility] Comment on above: Performed By: #### U MICRO, ERUR #### [facility] [address] [place] [address] Dr. Alfredo Lizama Eosinophils/100 WBC (Bld) 2.5 % Normal 0.9-7.0 [facility] Comment on above: Performed By: #### U MICRO, ERUR #### [facility] [address] [place] [address] Dr. Alfredo Lizama Erythrocyte distribution width (RBC) [Ratio] 12.7 % Normal 11.0-15.0 [facility] Comment on above: Performed By: #### U MICRO, ERUR #### [facility] [address] [place] [address] Dr. Alfredo Lizama Hematocrit (Bld) [Volume fraction] 46.3 % Normal 36.0-48.0 [facility] Comment on above: Performed By: #### U MICRO, ERUR #### [facility] [address] [place] [address] Dr. Alfredo Lizama Hemoglobin (Bld) [Mass/Vol] 15.9 g/dL Normal 12.0-16.0 [facility] Comment on above: Performed By: #### U MICRO, ERUR #### [facility] [address] [place] [address] Dr. Alfredo Lizama IG # 0.02 10e3/ul Normal 0.00-0.03 The [facility] Comment on above: Performed By: #### U MICRO, ERUR #### [facility] [address] [place] [address] Dr. Alfredo Lizama IG % 0.2 % Normal 0.0-0.5 The [facility] Comment on above: Performed By: #### U MICRO, ERUR #### [facility] [address] [place] [address] Dr. Alfredo Lizama LYMPH # 2.6 103/ul Normal 1.2-3.8 The [facility] Comment on above: Performed By: #### U MICRO, ERUR #### [facility] [address] [place] [address] Dr. Alfredo Lizama Lymphocytes/100 WBC (Bld) 31.3 % Normal 20.5-60.0 [facility] Comment on above: Performed By: #### U MICRO, ERUR #### [facility] [address] [place] [address] Dr. Alfredo Lizama MANUAL DIFF REQ NO Normal The [facility] Comment on above: Performed By: #### U MICRO, ERUR #### [facility] [address] [place] [address] Dr. Alfredo Lizama MCH (RBC) [Entitic mass] 29.3 pg Normal 26.7-34.0 The [facility] Comment on above: Performed By: #### U MICRO, ERUR #### [facility] [address] [place] [address] Dr. Alfredo Lizama MCHC (RBC) [Mass/Vol] 34.3 g/dL Normal 29.9-35.2 The [facility] Comment on above: Performed By: #### U MICRO, ERUR #### [facility] [address] [place] [address] Dr. Alfredo Lizama MCV (RBC) [Entitic vol] 85.4 fL Normal 81.0-99.0 The [facility] Comment on above: Performed By: #### U MICRO, ERUR #### [facility] [address] [place] [address] Dr. Alfredo Lizama MONO # 0.6 103/ul Normal 0.3-0.8 The [facility] Comment on above: Performed By: #### U MICRO, ERUR #### [facility] [address] [place] [address] Dr. Alfredo Lizama Monocytes/100 WBC (Bld) 6.6 % Normal 1.7-12.0 The [facility] Comment on above: Performed By: #### U MICRO, ERUR #### [facility] [address] [place] [address] Dr. Alfredo Lizama NEUT # 4.9 103/ul Normal 1.4-6.5 The [facility] Comment on above: Performed By: #### U MICRO, ERUR #### [facility] [address] [address] [address] Alfredo Lizama Neutrophils/100 WBC (Bld) 58.6 % Normal 43.0-75.0 The [facility] Comment on above: Performed By: #### U MICRO, ERUR #### [facility] [address] [place] [address] Dr. Alfredo Lizama Platelet mean volume (Bld) [Entitic vol] 9.5 fL Normal 9.5-13.5 The [facility] Comment on above: Performed By: #### U MICRO, ERUR #### [facility] [address] [address] [address] Alfredo Lizama PLT 273 103/ul Normal 150-450 The [facility] Comment on above: Performed By: #### U MICRO, ERUR #### [facility] [address] [place] [address] Dr. Alfredo Lizama RBC 5.42 106/ul Critically high 4.20-5.40 The [facility] Comment on above: Performed By: #### U MICRO, ERUR #### [facility] [address] [place] [address] Dr. Alfredo Lizama WBC 8.4 103/ul Normal 4.0-11.0 The [facility] Comment on above: Performed By: #### U MICRO, ERUR #### [facility] [address] [place] [address] Dr. Alfredo Lizama CULTURE URINEon 11-09-2022 CULTURE URINE Culture Observations : MODERATE GROWTH OF MIXED GENITAL ROSANNA. NO POTENTIAL PATHOGENS SEEN. Normal The [facility] Comment on above: Performed By: #### U MICRO, ERUR #### [facility] [address] [place] [address] Dr. Alfredo Lizama ER URINE PROFILEon 3 Bilirubin Ql (U) Negative Normal NEGATIVE The [facility] Comment on above: Performed By: #### U MICRO, ERUR #### [facility] [address] [place] [address] Dr. Alfredo Lizama Clarity (U) CLEAR Normal CLEAR The [facility] Comment on above: Performed By: #### U MICRO, ERUR #### [facility] [address] [address] [address] Alfredo Lizama Color (U) LT. YELLOW Normal YELLOW The [facility] Comment on above: Performed By: #### U MICRO, ERUR #### [facility] [address] [address] [address] Alfredo LÓPEZD A micrscopic examina tion will be performed if indicated. Normal The [facility] Comment on above: Performed By: #### U MICRO, ERUR #### [facility] [address] [address] [address] Alfredo Lizama Glucose Ql (U) Negative Normal NEGATIVE The [facility] Comment on above: Performed By: #### U MICRO, ERUR #### [facility] [address] [place] [address] Dr. Alfredo Lizama Hemoglobin Ql (U) MODERATE Abnormal NEGATIVE The [facility] Comment on above: Performed By: #### U MICRO, ERUR #### [facility] [address] [place] [address] Dr. Alfredo Lizama Ketones Ql (U) Negative Normal NEGATIVE The [facility] Comment on above: Performed By: #### U MICRO, ERUR #### [facility] [address] [place] [address] Dr. Alfredo Lizama LEUKOCYTES LARGE Abnormal NEGATIVE The [facility] Comment on above: Performed By: #### U MICRO, ERUR #### [facility] [address] [place] [address] Dr. Alfredo Lizama Nitrite Ql (U) Negative Normal NEGATIVE The [facility] Comment on above: Performed By: #### U MICRO, ERUR #### [facility] [address] [address] [address] Alfredo Lizama pH (U) 7.0 [pH] Normal 5-9 The [facility] Comment on above: Performed By: #### U MICRO, ERUR #### [facility] [address] [place] [address] Dr. Alfredo Lizama SPEC GRAVITY 1.015 Normal 1.005-<=1.0 25 [facility] Comment on above: Performed By: #### U MICRO, ERUR #### [facility] [address] [place] [address] Dr. Alfredo Lizama UA PROTEIN Negative Normal NEGATIVE/ TRACE The [facility] Comment on above: Performed By: #### U MICRO, ERUR #### [facility] [address] [place] [address] Dr. Alfredo Lizama UR MICRO IND INDICATED Normal The [facility] Comment on above: Performed By: #### U MICRO, ERUR #### [facility] [address] [address] [address] Alfredo Lizama Urobilinogen Qn (U) 0.2 {Tesha'U}/dL Normal 0.2 - 1. 0 The [facility] Comment on above: Performed By: #### U MICRO, ERUR #### [facility] [address] [place] [address] Dr. Alfredo Lizama LIPASEon 11-09-2022 Lipase [Catalytic activity/Vol] 34.0 U/L Critically low 73.0-393.0 The [facility] Comment on above: Performed By: #### U MICRO, ERUR #### [facility] [address] [place] [address] Dr. Alfredo Lizama PROF 14(COMP METB)on 023 Albumin [Mass/Vol] 4.0 g/dL Normal 3.4-5.0 [facility] Comment on above: Performed By: #### U MICRO, ERUR #### [facility] [address] [place] [address] Dr. Alfredo Lizama Albumin/Globulin [Mass ratio] 1.0 {ratio} Normal The [facility] Comment on above: Performed By: #### U MICRO, ERUR #### [facility] [address] [place] [address] Dr. Alfredo Lizama ALP [Catalytic activity/Vol] 206 U/L Critically high 46-116 The [facility] Comment on above: Performed By: #### U MICRO, ERUR #### [facility] [address] [place] [address] Dr. Alfredo Lizama ALT [Catalytic activity/Vol] 53 U/L Normal 14-59 The [facility] Comment on above: Performed By: #### U MICRO, ERUR #### [facility] [address] [address] [address] Alfredo Lizama Anion gap [Moles/Vol] 14.5 mmol/L Normal The [facility] Comment on above: Performed By: #### U MICRO, ERUR #### [facility] [address] [address] [address] Alfredo Lizama AST [Catalytic activity/Vol] 55 U/L Critically high 15-37 [facility] Comment on above: Performed By: #### U MICRO, ERUR #### [facility] [address] [address] [address] Alfredo Lizama Bilirubin [Mass/Vol] 0.7 mg/dL Normal 0.2-1.0 [facility] Comment on above: Performed By: #### U MICRO, ERUR #### [facility] [address] [address] [address] Alfredo Lizama Calcium [Mass/Vol] 9.0 mg/dL Normal 8.5-10.1 [facility] Comment on above: Performed By: #### U MICRO, ERUR #### [facility] [address] [address] [address] Alfredo Lizama Chloride [Moles/Vol] 100 mmol/L Normal 98-107 The [facility] Comment on above: Performed By: #### U MICRO, ERUR #### [facility] [address] [address] [address] Alfredo Lizama CO2 [Moles/Vol] 28.3 mmol/L Normal 21.0-32.0 The [facility] Comment on above: Performed By: #### U MICRO, ERUR #### [facility] [address] [address] [address] Alfredo Lizama Creatinine [Mass/Vol] 0.65 mg/dL Normal 0.55-1.02 The [facility] Comment on above: Performed By: #### U MICRO, ERUR #### [facility] [address] [address] [address] Alfredo Lizama EGFR-AF TRINIDADIAN >60 Normal >=60 [facility] Comment on above: Performed By: #### U MICRO, ERUR #### [facility] [address] [address] [address] Alfredo Lizama EGFR-NON AF TRINIDADIAN >60 Normal >=60 [facility] Comment on above: Performed By: #### U MICRO, ERUR #### [facility] [address] [address] [address] Alfredo Lizama Globulin (S) [Mass/Vol] 3.9 g/dL Normal [facility] Comment on above: Performed By: #### U MICRO, ERUR #### [facility] [address] [address] [address] Alfredo Lizama Glucose [Mass/Vol] 134 mg/dL Critically high 74-106 [facility] Comment on above: Performed By: #### U MICRO, ERUR #### [facility] [address] [address] [address] Alfredo Lizama Potassium [Moles/Vol] 3.8 mmol/L Normal 3.5-5.1 [facility] Comment on above: Performed By: #### U MICRO, ERUR #### [facility] [address] [address] [address] Alfredo Lizama Protein [Mass/Vol] 7.9 g/dL Normal 6.4-8.2 [facility] Comment on above: Performed By: #### U MICRO, ERUR #### [facility] [address] [address] [address] Alfredo Lizama Sodium [Moles/Vol] 139 mmol/L Normal 136-145 [facility] Comment on above: Performed By: #### U MICRO, ERUR #### [facility] [address] [address] [address] Alfredo Lizama Urea nitrogen [Mass/Vol] 7.0 mg/dL Normal 7.0-18.0 [facility] Comment on above: Performed By: #### U MICRO, ERUR #### [facility] [address] [address] [address] Alfredo Lizama Urea nitrogen/Creatinine [Mass ratio] 10.7 mg/mg Normal The [facility] Comment on above: Performed By: #### U MICRO, ERUR #### [facility] [address] [place] [address] Dr. Alfredo Lizama URINE MICROSCOPIC ONLYon BACTERIA TRACE Abnormal NONE SEEN The [facility] Comment on above: Performed By: #### U MICRO, ERUR #### [facility] [address] [place] [address] Dr. Alfredo Lizama Bacteria identified Cx Nom (U) INDICATED Normal The [facility] Comment on above: Performed By: #### U MICRO, ERUR #### [facility] [address] [place] [address] Dr. Alfredo Lizama CAST NONE SEEN Normal NONE SEEN [facility] Comment on above: Performed By: #### U MICRO, ERUR #### [facility] [address] [place] [address] Dr. Alfredo Lizama Crystals LM Nom (Urine sed) NONE SEEN Normal NONE SEEN The [facility] Comment on above: Performed By: #### U MICRO, ERUR #### [facility] [address] [place] [address] Dr. Alfredo Lizama Epithelial cells LM Ql (Urine sed) FEW Abnormal NONE SEEN /RARE The [facility] Comment on above: Performed By: #### U MICRO, ERUR #### [facility] [address] [place] [address] Dr. Alfredo Lizama MUCOUS NONE SEEN Normal NONE SEEN The [facility] Comment on above: Performed By: #### U MICRO, ERUR #### [facility] [address] [place] [address] Dr. Alfredo Lizama RBC 20-50 Abnormal 0-2 The [facility] Comment on above: Performed By: #### U MICRO, ERUR #### [facility] [address] [place] [address] Dr. Alfredo Lizama WBC 20-50 Abnormal NONE SEEN The [facility] Comment on above: Performed By: #### U MICRO, ERUR #### [facility] [address] [place] [address] Dr. Alfredo Lizama XR ABD FLAT_UPon 11-09-2022 [...] by: ENRIQUE LOWE Date: 2022-11-09 11:06 Normal [facility] CULTURE URINEon 10-18-2022 CULTURE URINE Isolate [...] Trimethoprim/Sulfamethoxazo le <=10 S F Normal The [facility] Comment on above: Performed By: #### U MICRO, ERUR #### [facility] [address] [place] [address] Dr. Alfredo Lizama ER URINE PROFILEon 3 Bilirubin Ql (U) Negative Normal NEGATIVE [facility] Comment on above: Performed By: #### E RUR, UMICRO #### [facility] [address] [place] [address] Dr. Alfredo Lizama Clarity (U) CLEAR Normal CLEAR The [facility] Comment on above: Performed By: #### CHINMAY CHAVESRO #### [facility] [address] [place] [address] Dr. Alfredo Lizama Color (U) YELLOW Normal YELLOW The [facility] Comment on above: Performed By: #### CHINMAY CHAVESRO #### [facility] [address] [place] [address] Dr. Alfredo Lizama ERUAHD A micrscopic examina tion will be performed if indicated. Normal The [facility] Comment on above: Performed By: #### CHINMAY CHAVESRO #### [facility] [address] [place] [address] Dr. Alfredo Lizama Glucose Ql (U) Negative Normal NEGATIVE The [facility] Comment on above: Performed By: #### CHINMAY CHAVESRO #### [facility] [address] [place] [address] Dr. Alfredo Lizama Hemoglobin Ql (U) LARGE Abnormal NEGATIVE [facility] Comment on above: Performed By: #### CHINMAY CHAVESRO #### [facility] [address] [place] [address] Dr. Alfredo Lizama Ketones Ql (U) Negative Normal NEGATIVE The [facility] Comment on above: Performed By: #### CHINMAY CHAVESRO #### [facility] [address] [place] [address] Dr. Alfredo Lizama LEUKOCYTES LARGE Abnormal NEGATIVE The [facility] Comment on above: Performed By: #### CHINMAY CHAVESRO #### [facility] [address] [place] [address] Dr. Alfredo Lizama Nitrite Ql (U) Positive Abnormal NEGATIVE The [facility] Comment on above: Performed By: #### CHINMAY CHAVESRO #### [facility] [address] [place] [address] Dr. Alfredo Lizama pH (U) 6.5 [pH] Normal 5-9 The [facility] Comment on above: Performed By: #### E SEAN, UMICRO #### [facility] [address] [place] [address] Dr. Alfredo Lizama Protein (U) [Mass/Vol] 100 mg/dL Abnormal NEGATIVE/ TRACE The [facility] Comment on above: Performed By: #### E RUEsther, UMICRO #### [facility] [address] [place] [address] Dr. Alfredo Lizama SPEC GRAVITY 1.010 Normal 1.005-<=1.0 25 [facility] Comment on above: Performed By: #### E RUEsther, UMICRO #### [facility] [address] [place] [address] Dr. Alfredo Lizama UR MICRO IND INDICATED Normal [facility] Comment on above: Performed By: #### E SEAN UMICRO #### [facility] [address] [place] [address] Dr. Alfredo Lizama Urobilinogen Qn (U) 1.0 {Tesha'U}/dL Normal 0.2 - 1. 0 [facility] Comment on above: Performed By: #### Jacque ESTRADA UMICRO #### [facility] [address] [place] [address] Dr. Alfredo Lizama URINE MICROSCOPIC ONLYon BACTERIA MODERATE Abnormal NONE SEEN The [facility] Comment on above: Performed By: #### U MICRO, ERUR #### [facility] [address] [place] [address] Dr. Alfredo Lizama Bacteria identified Cx Nom (U) INDICATED Normal The [facility] Comment on above: Performed By: #### U MICRO, ERUR #### [facility] [address] [place] [address] Dr. Alfredo Lizama CA OX CRYSTALS RARE Normal The [facility] Comment on above: Performed By: #### U MICRO, ERUR #### [facility] [address] [place] [address] Dr. Alfredo Lizama CAST NONE SEEN Normal NONE SEEN [facility] Comment on above: Performed By: #### U MICRO, ERUR #### [facility] [address] [place] [address] Dr. Alfredo Lizama Crystals LM Nom (Urine sed) SEEN Abnormal NONE SEEN The [facility] Comment on above: Performed By: #### U MICRO, ERUR #### [facility] [address] [place] [address] Dr. Alfredo Lizama Epithelial cells LM Ql (Urine sed) MODERATE Abnormal NONE SEEN /RARE The [facility] Comment on above: Performed By: #### U MICRO, ERUR #### [facility] [address] [place] [address] Dr. Alfredo Lizama MUCOUS TRACE Abnormal NONE SEEN The [facility] Comment on above: Performed By: #### U MICRO, ERUR #### [facility] [address] [place] [address] Dr. Alfredo Lizama RBC 20-50 Abnormal 0-2 The [facility] Comment on above: Performed By: #### U MICRO, ERUR #### [facility] [address] [place] [address] Dr. Alfredo Lizama WBC 50-75 Abnormal NONE SEEN The [facility] Comment on above: Performed By: #### U MICRO, ERUR #### [facility] [address] [place] [address] Dr. Alfredo Lizama Covid-19 PCR ([facility])on 08-06 SARS-CoV-2 (COVID-19) RNA ADRIÁN+probe Ql (Unsp spec) Not detected Normal NOT DETECTED [facility] Comment on above: Result Comment: When diagnostic [...] for this test is supported by the Jacquard Fixer of Health and Human Service's declaration that [...] Performed By: #### U MICRO, ERUR #### [facility] [address] [address] [address] Alfredo Lizama CBC AUTO DIFFon 08-24-2022 BASO # 0.1 103/ul Normal 0.0-0.1 [facility] Comment on above: Performed By: #### C BC #### [facility] [address] [place] [address] Dr. Alfredo Lizama Basophils/100 WBC (Bld) 0.8 % Normal 0.2-2.0 [facility] Comment on above: Performed By: #### C BC #### [facility] [address] [place] [address] Dr. Alfredo Lizama EO # 0.3 103/ul Normal 0.0-0.7 [facility] Comment on above: Performed By: #### C BC #### [facility] [address] [place] [address] Dr. Alfredo Lizama Eosinophils/100 WBC (Bld) 3.1 % Normal 0.9-7.0 [facility] Comment on above: Performed By: #### C BC #### [facility] [address] [place] [address] Dr. Alfredo Lizama Erythrocyte distribution width (RBC) [Ratio] 13.4 % Normal 11.0-15.0 [facility] Comment on above: Performed By: #### C BC #### [facility] [address] [place] [address] Dr. Alfredo Lizama Hematocrit (Bld) [Volume fraction] 47.2 % Normal 36.0-48.0 [facility] Comment on above: Performed By: #### C BC #### [facility] [address] [place] [address] Dr. Alfredo Lizama Hemoglobin (Bld) [Mass/Vol] 15.6 g/dL Normal 12.0-16.0 [facility] Comment on above: Performed By: #### C BC #### [facility] [address] [place] [address] Dr. Alfredo Lizama IG # 0.02 10e3/ul Normal 0.00-0.03 [facility] Comment on above: Performed By: #### C BC #### [facility] [address] [place] [address] Dr. Alfredo Lizama IG % 0.2 % Normal 0.0-0.5 [facility] Comment on above: Performed By: #### C BC #### [facility] [address] [place] [address] Dr. Alfredo Lizama LYMPH # 4.4 103/ul Critically high 1.2-3.8 [facility] Comment on above: Performed By: #### C BC #### [facility] [address] [place] [address] Dr. Alfredo Lizama Lymphocytes/100 WBC (Bld) 42.3 % Normal 20.5-60.0 [facility] Comment on above: Performed By: #### C BC #### [facility] [address] [place] [address] Dr. Alfredo Lizama MANUAL DIFF REQ NO Normal [facility] Comment on above: Performed By: #### C BC #### [facility] [address] [place] [address] Dr. Alfredo Lizama MCH (RBC) [Entitic mass] 28.8 pg Normal 26.7-34.0 [facility] Comment on above: Performed By: #### C BC #### [facility] [address] [place] [address] Dr. Alfredo Lizama MCHC (RBC) [Mass/Vol] 33.1 g/dL Normal 29.9-35.2 [facility] Comment on above: Performed By: #### C BC #### [facility] [address] [place] [address] Dr. Alfredo Lizama MCV (RBC) [Entitic vol] 87.2 fL Normal 81.0-99.0 [facility] Comment on above: Performed By: #### C BC #### [facility] [address] [address] [address] Alfredo Lizama MONO # 0.6 103/ul Normal 0.3-0.8 [facility] Comment on above: Performed By: #### C BC #### [facility] [address] [place] [address] Dr. Alfredo Lizama Monocytes/100 WBC (Bld) 5.3 % Normal 1.7-12.0 [facility] Comment on above: Performed By: #### C BC #### [facility] [address] [place] [address] Dr. Alfredo Lizama NEUT # 5.0 103/ul Normal 1.4-6.5 [facility] Comment on above: Performed By: #### C BC #### [facility] [address] [place] [address] Dr. Alfredo Lizama Neutrophils/100 WBC (Bld) 48.3 % Normal 43.0-75.0 [facility] Comment on above: Performed By: #### C BC #### [facility] [address] [place] [address] Dr. Alfredo Lizama Platelet mean volume (Bld) [Entitic vol] 9.9 fL Normal 9.5-13.5 [facility] Comment on above: Performed By: #### C BC #### [facility] [address] [place] [address] Dr. Alfredo Lizama PLT 298 103/ul Normal 150-450 [facility] Comment on above: Performed By: #### C BC #### [facility] [address] [place] [address] Dr. Alfredo Lizama RBC 5.41 106/ul Critically high 4.20-5.40 [facility] Comment on above: Performed By: #### C BC #### [facility] [address] [place] [address] Dr. Alfredo Lizama WBC 10.3 103/ul Normal 4.0-11.0 [facility] Comment on above: Performed By: #### C BC #### [facility] [address] [place] [address] Dr. Alfredo Lizama PROF CHEM 8 (BAS METB)on Anion gap [Moles/Vol] 14.3 mmol/L Normal [facility] Comment on above: Performed By: #### U MICRO, ERUR #### [facility] [address] [place] [address] Dr. Alfredo Lizama Calcium [Mass/Vol] 9.1 mg/dL Normal 8.5-10.1 [facility] Comment on above: Performed By: #### U MICRO, ERUR #### [facility] [address] [place] [address] Dr. Alfredo Lizama Chloride [Moles/Vol] 99 mmol/L Normal 98-107 [facility] Comment on above: Performed By: #### U MICRO, ERUR #### [facility] [address] [place] [address] Dr. Alfredo Lizama CO2 [Moles/Vol] 29.0 mmol/L Normal 21.0-32.0 [facility] Comment on above: Performed By: #### U MICRO, ERUR #### [facility] [address] [place] [address] Dr. Alfredo Lizama Creatinine [Mass/Vol] 0.70 mg/dL Normal 0.55-1.02 [facility] Comment on above: Performed By: #### U MICRO, ERUR #### [facility] [address] [place] [address] Dr. Alfredo Lizama EGFR-AF TRINIDADIAN >60 Normal >=60 [facility] Comment on above: Performed By: #### U MICRO, ERUR #### [facility] [address] [place] [address] Dr. Alfredo Lizama EGFR-NON AF TRINIDADIAN >60 Normal >=60 [facility] Comment on above: Performed By: #### U MICRO, ERUR #### [facility] [address] [place] [address] Dr. Alfredo Lizama Glucose [Mass/Vol] 121 mg/dL Critically high 74-106 [facility] Comment on above: Performed By: #### U MICRO, ERUR #### [facility] [address] [place] [address] Dr. Alfredo Lizama Potassium [Moles/Vol] 3.3 mmol/L Critically low 3.5-5.1 [facility] Comment on above: Performed By: #### U MICRO, ERUR #### [facility] [address] [place] [address] Dr. Alfredo Lizama Sodium [Moles/Vol] 139 mmol/L Normal 136-145 [facility] Comment on above: Performed By: #### U MICRO, ERUR #### [facility] [address] [place] [address] Dr. Alfredo Lizama Urea nitrogen [Mass/Vol] 5.0 mg/dL Critically low 7.0-18.0 [facility] Comment on above: Performed By: #### U MICRO, ERUR #### [facility] [address] [place] [address] Dr. Alfredo Lizama Urea nitrogen/Creatinine [Mass ratio] 7.1 mg/mg Normal [facility] Comment on above: Performed By: #### U MICRO, ERUR #### [facility] [address] [place] [address] Dr. Alfredo Lizama PROTIMEon 08-24-2022 INR Coag (PPP) [Relative time] 0.99 {INR} Normal [facility] Comment on above: Performed By: #### P T, PTT #### [facility] [address] [place] [address] Dr. Alfredo Lizama INR GUIDELINES SEE BELOW Normal [facility] Comment on above: Result Comment: MARY JO RED INR: 2.0 - 3.0 CONDITIONS NOT LISTED BELOW 2.5 - 3.5 FOR PROSTHETIC HEART VALVE REPLACEMENT 2.5 - 3.5 RECURRENT THROMBOSIS Performed By: #### P T, PTT #### [facility] [address] [place] [address] Dr. Alfredo Lizama PT Coag (PPP) [Time] 10.7 s Normal 9.0-11.6 [facility] Comment on above: Performed By: #### P T, PTT #### [facility] [address] [place] [address] Dr. Alfredo Lizama PTTon 08-24-2022 aPTT Coag (Bld) [Time] 31.7 s Normal 22.3-36.2 [facility] Comment on above: Performed By: #### P T, PTT #### [facility] [address] [address] [address] Alfredo Lizama BN SACRUM/COCCYX, MIN 2 VIEW Son 06-07-2022 [...] 09/20/2019. Thoracolumbar spine radiographs 09/08/2021. ACCESSION NUMBER(S): [id number]; [id number]; [id number] ORDERING CLINICIAN: CANDICE PEREZ FINDINGS: Three views [...] stated. Electronically signed by: GOMEZ JAMA MD [facility] BN SPINE, LUMBOSACRAL; 2 OR 3 [...] 09/20/2019. Thoracolumbar spine radiographs 09/08/2021. ACCESSION NUMBER(S): [id number]; [id number]; [id number] ORDERING CLINICIAN: CANDICE PEREZ FINDINGS: Three views [...] Electronically signed by: GOMEZ JAMA MD Normal [facility] BN SPINE, THORACIC, 3 VIEWSo n [...] 09/20/2019. Thoracolumbar spine radiographs 09/08/2021. ACCESSION NUMBER(S): [id number]; [id number]; [id number] ORDERING CLINICIAN: CANDICE PEREZ FINDINGS: Three views [...] Electronically signed by: GOMEZ JAMA MD Normal [facility] CBC AND DIFFERENTIALon 06-07 % AUTOMATED IMMATURE GRAN 0.2 % Normal 0.0 - 0.9 [facility] Comment on above: Result Comment: Jaleesa ture Granulocyte Count (IG) includes promyelocytes, myelocytes and metamyelocytes but does not include bands. Percent differential counts (%) should be interpreted in the context of the absolute cell counts (cells/L). Performed By: #### R ENAL #### [facility] [address] [place] [address] Basophils (Bld) [#/Vol] 0.09 10*3/uL Normal 0.00 - 0.10 [facility] Comment on above: Performed By: #### R ENAL #### [facility] [address] [place] [address] Basophils/100 WBC (Bld) 1.0 % Normal 0.0 - 2.0 [facility] Comment on above: Performed By: #### R ENAL #### [facility] [address] [place] [address] Eosinophils (Bld) [#/Vol] 0.24 10*3/uL Normal 0.00 - 0.70 [facility] Comment on above: Performed By: #### R ENAL #### [facility] [address] [place] [address] Eosinophils/100 WBC (Bld) 2.6 % Normal 0.0 - 6.0 [facility] Comment on above: Performed By: #### R ENAL #### [facility] [address] [place] [address] Erythrocyte distribution width (RBC) [Ratio] 12.9 % Normal 11.5 - 14.5 [facility] Comment on above: Performed By: #### R ENAL #### [facility] [address] [place] [address] Hematocrit (Bld) [Volume fraction] 48.4 % High 36.0 - 46.0 [facility] Comment on above: Performed By: #### R ENAL #### [facility] [address] [place] [address] Hemoglobin (Bld) [Mass/Vol] 17.1 g/dL High 12.0 - 16.0 [facility] Comment on above: Performed By: #### R ENAL #### [facility] [address] [place] [address] Lymphocytes (Bld) [#/Vol] 2.93 10*3/uL Normal 1.20 - 4.80 [facility] Comment on above: Performed By: #### R ENAL #### [facility] [address] [place] [address] Lymphocytes/100 WBC (Bld) 31.9 % Normal 13.0 - 44.0 [facility] Comment on above: Performed By: #### R ENAL #### [facility] [address] [place] [address] MCHC (RBC) [Mass/Vol] 35.3 g/dL Normal 32.0 - 36.0 [facility] Comment on above: Performed By: #### R ENAL #### [facility] [address] [place] [address] MCV (RBC) [Entitic vol] 85 fL Normal 80 - 100 [facility] Comment on above: Performed By: #### R ENAL #### [facility] [address] [place] [address] Monocytes (Bld) [#/Vol] 0.36 10*3/uL Normal 0.10 - 1.00 [facility] Comment on above: Performed By: #### R ENAL #### [facility] [address] [place] [address] Monocytes/100 WBC (Bld) 3.9 % Normal 2.0 - 10.0 [facility] Comment on above: Performed By: #### R ENAL #### [facility] [address] [place] [address] Neutrophils (Bld) [#/Vol] 5.54 10*3/uL Normal 1.20 - 7.70 [facility] Comment on above: Performed By: #### R ENAL #### [facility] [address] [place] [address] Neutrophils/100 WBC (Bld) 60.4 % Normal 40.0 - 80.0 [facility] Comment on above: Performed By: #### R ENAL #### [facility] [address] [place] [address] NUCLEATED RBC 0.0 /100 WBC Normal 0.0-0.0 [facility] Comment on above: Performed By: #### R ENAL #### [facility] [address] [place] [address] Platelets (Bld) [#/Vol] 365 10*3/uL Normal 150 - 450 [facility] Comment on above: Performed By: #### R ENAL #### [facility] [address] [place] [address] RBC 5.69 x10E12/L High 4.00 - 5.20 [facility] Comment on above: Performed By: #### R ENAL #### [facility] [address] [place] [address] WBC (Bld) [#/Vol] 9.2 10*3/uL Normal 4.4 - 11.3 [facility] Comment on above: Performed By: #### R ENAL #### [facility] [address] [place] [address] COMPREHENSIVE PANELon 2021 Albumin [Mass/Vol] 4.6 g/dL Normal 3.4 - 5.0 [facility] Comment on above: Performed By: #### R ENAL #### [facility] [address] [place] [address] ALP [Catalytic activity/Vol] 192 U/L High 33 - 110 [facility] Comment on above: Performed By: #### R ENAL #### [facility] [address] [place] [address] ALT [Catalytic activity/Vol] 33 U/L Normal 7 - 45 [facility] Comment on above: Result Comment: Melly ents treated with Sulfasalazine may generate falsely decreased results for ALT. Performed By: #### R ENAL #### [facility] [address] [place] [address] Anion gap [Moles/Vol] 16 mmol/L Normal 10 - 20 [facility] Comment on above: Performed By: #### R ENAL #### [facility] [address] [place] [address] AST [Catalytic activity/Vol] 51 U/L High 9 - 39 [facility] Comment on above: Performed By: #### R ENAL #### [facility] [address] [place] [address] Bilirubin [Mass/Vol] 0.5 mg/dL Normal 0.0 - 1.2 [facility] Comment on above: Performed By: #### R ENAL #### [facility] [address] [place] [address] Calcium [Mass/Vol] 10.3 mg/dL Normal 8.6 - 10.6 [facility] Comment on above: Performed By: #### R ENAL #### [facility] [address] [place] [address] Chloride [Moles/Vol] 101 mmol/L Normal 98 - 107 [facility] Comment on above: Performed By: #### R ENAL #### [facility] [address] [place] [address] Creatinine [Mass/Vol] 0.61 mg/dL Normal 0.50 - 1.05 [facility] Comment on above: Performed By: #### R ENAL #### [facility] [address] [place] [address] eGFR FEMALE >90 Normal >90 [facility] Comment on above: Result Comment: CALC ULATIONS OF ESTIMATED GFR ARE PERFORMED USING THE 2020 CKD-EPI STUDY REFIT EQUATION WITHOUT THE RACE VARIABLE FOR THE IDMS-TRACEABLE CREATININE METHODS. https://jasn.asnjournals.org/content//ASN.2916403 988 Performed By: #### R ENAL #### [facility] [address] [place] [address] Glucose [Mass/Vol] 100 mg/dL High 74 - 99 [facility] Comment on above: Performed By: #### R ENAL #### [facility] [address] [place] [address] HCO3 (Bld) [Moles/Vol] 27 mmol/L Normal 21 - 32 [facility] Comment on above: Performed By: #### R ENAL #### [facility] [address] [place] [address] Potassium [Moles/Vol] 3.8 mmol/L Normal 3.5 - 5.3 [facility] Comment on above: Performed By: #### R ENAL #### [facility] [address] [place] [address] Protein [Mass/Vol] 8.2 g/dL Normal 6.4 - 8.2 [facility] Comment on above: Performed By: #### R ENAL #### [facility] [address] [place] [address] Sodium [Moles/Vol] 140 mmol/L Normal 136 - 145 [facility] Comment on above: Performed By: #### R ENAL #### [facility] [address] [place] [address] Urea nitrogen [Mass/Vol] 5 mg/dL Low 6 - 23 [facility] Comment on above: Performed By: #### R ENAL #### [facility] [address] [place] [address] Consult - Neuro-Surgeryon Consult - Neuro-Surgery Service: [...] Updated: 07-Jun-2022 11:22 by Perez Carlisle) Normal [facility] NR CT L-SPINE WO CONTRASTon 06-07-[address] L-SPINE WO CONTRAST Patient Name: MORALES LEE STUDY: CT T-SPINE WO CONTRAST; CT L-SPINE WO CONTRAST 06/06/2022 11:03 pm INDICATION: ok, Lie Flat: Yes COMPARISON: 09/20/2021 MRI and 09/18/2021 CT ACCESSION NUMBER(S): [id number]; [id number] ORDERING CLINICIAN: CANDICE PEREZ TECHNIQUE: Axial CT [...] osseous spinal canal or neural foraminal stenosis. [id number] spinal canal and neural foraminal narrowing described [...] Electronically signed by: CELI MCNEIL, DO Normal [facility] NR CT T-SPINE WO CONTRASTon 06-07-[address] T-SPINE WO CONTRAST Patient Name: MORALES LEE STUDY: CT T-SPINE WO CONTRAST; CT L-SPINE WO CONTRAST 06/06/2022 11:03 pm INDICATION: ok, Lie Flat: Yes COMPARISON: 09/20/2021 MRI and 09/18/2021 CT ACCESSION NUMBER(S): [id number]; [id number] ORDERING CLINICIAN: CANDICE PEREZ TECHNIQUE: Axial CT [...] osseous spinal canal or neural foraminal stenosis. [id number] spinal canal and neural foraminal narrowing described [...] field of view. Electronically signed by: CELI MCNEIL DO Normal [facility] Provider Note - ED Care Diaz [...] 21-Jun-2022 06:18 by Yony Aguirre () Normal [facility] Provider Note - ED v3on 10-0 [...] - M21.37 (more content not included)... Normal [facility] Triage - EDon 06-06-2022 Triage - [...] BMI (kg/m2): 34.793 Calculated BSA (m2) 1.94 Pierpont Coma Scale: Best Eye Response: (E4) spontaneous Best Motor Response: (M6) obeys commands Best Verbal Response: (V5) oriented Pierpont Score: 15 Mask applied: yes Patient has [...] Medical History Reviewedyes Electronic Signatures: Meghan Chavez (RN) (Signed 06-Jun-2022 19:07) Entered: Risk Screens, Pain, Travel History, Chart Review, Scores, Past Medical History Authored: Quick Triage, Risk Screens, Pain, Travel History, Chart Review, Scores, Past Medical History Last Updated: 06-Jun-2022 19:07 by Meghan Chavez (MERA) Normal [facility] CULTURE URINEon 05-10-2022 CULTURE URINE Isolate [...] Trimethoprim/Sulfamethoxazo le <=20 S F Normal [facility] Comment on above: Performed By: #### U MICRO, ERUR #### [facility] [address] [place] [address] Dr. Alfredo Lizama CBC AUTO DIFFon 05-07-2022 BASO # 0.1 103/ul Normal 0.0-0.1 [facility] Comment on above: Performed By: #### U MICRO, ERUR #### [facility] [address] [place] [address] Dr. Alfredo Lizama Basophils/100 WBC (Bld) 0.5 % Normal 0.2-2.0 [facility] Comment on above: Performed By: #### U MICRO, ERUR #### [facility] [address] [place] [address] Dr. Alfredo Lizama EO # 0.4 103/ul Normal 0.0-0.7 [facility] Comment on above: Performed By: #### U MICRO, ERUR #### [facility] [address] [place] [address] Dr. Alfredo Lizama Eosinophils/100 WBC (Bld) 3.5 % Normal 0.9-7.0 [facility] Comment on above: Performed By: #### U MICRO, ERUR #### [facility] [address] [place] [address] Dr. Alfredo Lizama Erythrocyte distribution width (RBC) [Ratio] 13.2 % Normal 11.0-15.0 [facility] Comment on above: Performed By: #### U MICRO, ERUR #### [facility] [address] [place] [address] Dr. Alfredo Lizama Hematocrit (Bld) [Volume fraction] 44.0 % Normal 36.0-48.0 [facility] Comment on above: Performed By: #### U MICRO, ERUR #### [facility] [address] [place] [address] Dr. Alfredo Lizama Hemoglobin (Bld) [Mass/Vol] 14.8 g/dL Normal 12.0-16.0 [facility] Comment on above: Performed By: #### U MICRO, ERUR #### [facility] [address] [place] [address] Dr. Alfredo Lizama IG # 0.03 10e3/ul Normal 0.00-0.03 [facility] Comment on above: Performed By: #### U MICRO, ERUR #### [facility] [address] [place] [address] Dr. Alfredo Lizama IG % 0.2 % Normal 0.0-0.5 [facility] Comment on above: Performed By: #### U MICRO, ERUR #### [facility] [address] [place] [address] Dr. Alfredo Lizama LYMPH # 3.8 103/ul Normal 1.2-3.8 [facility] Comment on above: Performed By: #### U MICRO, ERUR #### [facility] [address] [place] [address] Dr. Alfredo Lizama Lymphocytes/100 WBC (Bld) 31.3 % Normal 20.5-60.0 [facility] Comment on above: Performed By: #### U MICRO, ERUR #### [facility] [address] [address] [address] Alfredo Lizama MANUAL DIFF REQ NO Normal [facility] Comment on above: Performed By: #### U MICRO, ERUR #### [facility] [address] [place] [address] Dr. Alfredo Lizama MCH (RBC) [Entitic mass] 28.8 pg Normal 26.7-34.0 [facility] Comment on above: Performed By: #### U MICRO, ERUR #### [facility] [address] [place] [address] Dr. Alfredo Lizama MCHC (RBC) [Mass/Vol] 33.6 g/dL Normal 29.9-35.2 [facility] Comment on above: Performed By: #### U MICRO, ERUR #### [facility] [address] [place] [address] Dr. Alfredo Lizama MCV (RBC) [Entitic vol] 85.8 fL Normal 81.0-99.0 [facility] Comment on above: Performed By: #### U MICRO, ERUR #### [facility] [address] [place] [address] Dr. Alfredo Lizama MONO # 0.7 103/ul Normal 0.3-0.8 [facility] Comment on above: Performed By: #### U MICRO, ERUR #### [facility] [address] [place] [address] Dr. Alfredo Lizama Monocytes/100 WBC (Bld) 5.8 % Normal 1.7-12.0 [facility] Comment on above: Performed By: #### U MICRO, ERUR #### [facility] [address] [place] [address] Dr. Alfredo Lizama NEUT # 7.1 103/ul Critically high 1.4-6.5 [facility] Comment on above: Performed By: #### U MICRO, ERUR #### [facility] [address] [place] [address] Dr. Alfredo Lizama Neutrophils/100 WBC (Bld) 58.7 % Normal 43.0-75.0 [facility] Comment on above: Performed By: #### U MICRO, ERUR #### [facility] [address] [address] [address] Aflredo Lizama Platelet mean volume (Bld) [Entitic vol] 9.6 fL Normal 9.5-13.5 [facility] Comment on above: Performed By: #### U MICRO, ERUR #### [facility] [address] [address] [address] Alfredo Lizama PLT 269 103/ul Normal 150-450 [facility] Comment on above: Performed By: #### U MICRO, ERUR #### [facility] [address] [address] [address] Alfredo Lizama RBC 5.13 106/ul Normal 4.20-5.40 [facility] Comment on above: Performed By: #### U MICRO, ERUR #### [facility] [address] [address] [address] Alfredo Lizama WBC 12.2 103/ul Critically high 4.0-11.0 [facility] Comment on above: Performed By: #### U MICRO, ERUR #### [facility] [address] [address] ABD/PELV W CONon [...] KORIN STANLEY Date: 2022-05-07 14:00 Normal The [facility] URINE PROFILEon 2 Bilirubin Ql (U) Negative Normal NEGATIVE The [facility] Comment on above: Performed By: #### U MICRO, ERUR #### [facility] [address] [address] [address] Alfredo Lizama Clarity (U) CLOUDY Abnormal CLEAR The [facility] Comment on above: Performed By: #### U MICRO, ERUR #### [facility] [address] [place], [place] [address] Dr. Alfredo Lizama Color (U) LT. YELLOW Normal YELLOW The [facility] Comment on above: Performed By: #### U MICRO, ERUR #### [facility] [address] [address] [address] Alfredo RAYMUNDO A micrscopic examina tion will be performed if indicated. Normal The [facility] Comment on above: Performed By: #### U MICRO, ERUR #### [facility] [address] [address] [address] Alfredo Lizama Glucose Ql (U) Negative Normal NEGATIVE The [facility] Comment on above: Performed By: #### U MICRO, ERUR #### [facility] [address] [address] [address] Alfredo Lizama Hemoglobin Ql (U) LARGE Abnormal NEGATIVE The [facility] Comment on above: Performed By: #### U MICRO, ERUR #### [facility] [address] [address] [address] Alfredo Lizama Ketones Ql (U) Negative Normal NEGATIVE The [facility] Comment on above: Performed By: #### U MICRO, ERUR #### [facility] [address] [address] [address] Alfredo Lizama LEUKOCYTES MODERATE Abnormal NEGATIVE The [facility] Comment on above: Performed By: #### U MICRO, ERUR #### [facility] [address] [address] [address] Alfredo Lizama Nitrite Ql (U) Positive Abnormal NEGATIVE The [facility] Comment on above: Performed By: #### U MICRO, ERUR #### [facility] [address] [address] [address] Alfredo Lizama pH (U) 8.5 [pH] Normal 5-9 The [facility] Comment on above: Performed By: #### U MICRO, ERUR #### [facility] [address] [address] [address] Alfredo Lizama Protein (U) [Mass/Vol] 100 mg/dL Abnormal NEGATIVE/ TRACE The [facility] Comment on above: Performed By: #### U MICRO, ERUR #### [facility] [address] [address] [address] Alfredo Lizama SPEC GRAVITY 1.015 Normal 1.005-<=1.0 25 The [facility] Comment on above: Performed By: #### U MICRO, ERUR #### [facility] [address] [address] [address] Alfredo Lizama UR MICRO IND INDICATED Normal [facility] Comment on above: Performed By: #### U MICRO, ERUR #### [facility] [address] [place] [address] Dr. Alfredo Lizama Urobilinogen Qn (U) 1.0 {Tesha'U}/dL Normal 0.2 - 1. 0 The [facility] Comment on above: Performed By: #### U MICRO, ERUR #### [facility] [address] [place] [address] Dr. Alfredo Lizama PROF CHEM 8 (BAS METB)on Anion gap [Moles/Vol] 12.0 mmol/L Normal [facility] Comment on above: Performed By: #### U MICRO, ERUR #### [facility] [address] [place] [address] Dr. Alfredo Lizama Calcium [Mass/Vol] 8.6 mg/dL Normal 8.5-10.1 The [facility] Comment on above: Performed By: #### U MICRO, ERUR #### [facility] [address] [place] [address] Dr. Alfredo Lizama Chloride [Moles/Vol] 101 mmol/L Normal 98-107 The [facility] Comment on above: Performed By: #### U MICRO, ERUR #### [facility] [address] [place] [address] Dr. Alfredo Lizama CO2 [Moles/Vol] 28.0 mmol/L Normal 21.0-32.0 The [facility] Comment on above: Performed By: #### U MICRO, ERUR #### [facility] [address] [place] [address] Dr. Alfredo Lizama Creatinine [Mass/Vol] 0.77 mg/dL Normal 0.55-1.02 [facility] Comment on above: Performed By: #### U MICRO, ERUR #### [facility] [address] [place] [address] Dr. Alfredo Lizama EGFR-AF TRINIDADIAN >60 Normal >=60 The [facility] Comment on above: Performed By: #### U MICRO, ERUR #### [facility] [address] [address] [address] Alfredo Lizama EGFR-NON AF TRINIDADIAN >60 Normal >=60 [facility] Comment on above: Performed By: #### U MICRO, ERUR #### [facility] [address] [address] [address] Alfredo Lizama Glucose [Mass/Vol] 96 mg/dL Normal 74-106 [facility] Comment on above: Performed By: #### U MICRO, ERUR #### [facility] [address] [address] [address] Alfredo Lizama Potassium [Moles/Vol] 4.0 mmol/L Normal 3.5-5.1 [facility] Comment on above: Performed By: #### U MICRO, ERUR #### [facility] [address] [place] [address] Dr. Alfredo Lizama Sodium [Moles/Vol] 137 mmol/L Normal 136-145 [facility] Comment on above: Performed By: #### U MICRO, ERUR #### [facility] [address] [place] [address] Dr. Alfredo Lizama Urea nitrogen [Mass/Vol] 7.0 mg/dL Normal 7.0-18.0 [facility] Comment on above: Performed By: #### U MICRO, ERUR #### [facility] [address] [place] [address] Dr. Alfredo Lizama Urea nitrogen/Creatinine [Mass ratio] 9.1 mg/mg Normal The [facility] Comment on above: Performed By: #### U MICRO, ERUR #### [facility] [address] [place] [address] Dr. Alfredo Lizama URINE MICROSCOPIC ONLYon BACTERIA MODERATE Abnormal NONE SEEN The [facility] Comment on above: Performed By: #### U MICRO, ERUR #### [facility] [address] [place] [address] Dr. Alfredo Lizama Bacteria identified Cx Nom (U) INDICATED Normal The [facility] Comment on above: Performed By: #### U MICRO, ERUR #### [facility] [address] [place] [address] Dr. Alfredo Lizama CAST NONE SEEN Normal NONE SEEN The [facility] Comment on above: Performed By: #### U MICRO, ERUR #### [facility] [address] [place] [address] Dr. Alfredo Lizama Crystals LM Nom (Urine sed) NONE SEEN Normal NONE SEEN The [facility] Comment on above: Performed By: #### U MICRO, ERUR #### [facility] [address] [place] [address] Dr. Alfredo Lizama Epithelial cells LM Ql (Urine sed) FEW Abnormal NONE SEEN /RARE The [facility] Comment on above: Performed By: #### U MICRO, ERUR #### [facility] [address] [place] [address] Dr. Alfredo Lizama MUCOUS NONE SEEN Normal NONE SEEN The [facility] Comment on above: Performed By: #### U MICRO, ERUR #### [facility] [address] [place] [address] Dr. Alfredo Lizama RBC 2-5 Abnormal 0-2 The [facility] Comment on above: Performed By: #### U MICRO, ERUR #### [facility] [address] [place] [address] Dr. Alfredo Lizama WBC 10-20 Abnormal NONE SEEN The [facility] Comment on above: Performed By: #### U MICRO, ERUR #### [facility] [address] [place] [address] Dr. Alfredo Lizama CULTURE URINEon 04-10-2022 CULTURE URINE Isolate 1 [...] Trimethoprim/Sulfamethoxazo le <=20 S F Normal The [facility] Comment on above: Performed By: #### U MICRO, ERUR #### [facility] [address] [place] [address] Dr. Alfredo Lizama ER URINE PROFILEon 2 Bilirubin Ql (U) Negative Normal NEGATIVE [facility] Comment on above: Performed By: #### U MICRO, ERUR #### [facility] [address] [place] [address] Dr. Alfredo Lizama Clarity (U) CLOUDY Abnormal CLEAR [facility] Comment on above: Performed By: #### U MICRO, ERUR #### [facility] [address] [place] [address] Dr. Alfredo Lizama Color (U) YELLOW Normal YELLOW The [facility] Comment on above: Performed By: #### U MICRO, ERUR #### [facility] [address] [place] [address] Dr. Alfredo Lizama ERUBYROND A micrscopic examina tion will be performed if indicated. Normal The [facility] Comment on above: Performed By: #### U MICRO, ERUR #### [facility] [address] [place] [address] Dr. Alfredo Lizama Glucose Ql (U) Negative Normal NEGATIVE [facility] Comment on above: Performed By: #### U MICRO, ERUR #### [facility] [address] [place] [address] Dr. Alfredo Lizama Hemoglobin Ql (U) SMALL Abnormal NEGATIVE [facility] Comment on above: Performed By: #### U MICRO, ERUR #### [facility] [address] [place] [address] Dr. Alfredo Lizama Ketones Ql (U) Negative Normal NEGATIVE [facility] Comment on above: Performed By: #### U MICRO, ERUR #### [facility] [address] [place] [address] Dr. Alfredo Lizama LEUKOCYTES LARGE Abnormal NEGATIVE [facility] Comment on above: Performed By: #### U MICRO, ERUR #### [facility] [address] [place] [address] Dr. Alfredo Lizama Nitrite Ql (U) Negative Normal NEGATIVE [facility] Comment on above: Performed By: #### U MICRO, ERUR #### [facility] [address] [place] [address] Dr. Alfredo Lizama pH (U) 7.0 [pH] Normal 5-9 The [facility] Comment on above: Performed By: #### U MICRO, ERUR #### [facility] [address] [place] [address] Dr. Alfredo Lizama SPEC GRAVITY <=1.005 Abnormal 1.005-<=1.0 25 [facility] Comment on above: Performed By: #### U MICRO, ERUR #### [facility] [address] [place] [address] Dr. Alfredo Lizama UA PROTEIN Negative Normal NEGATIVE/ TRACE The [facility] Comment on above: Performed By: #### U MICRO, ERUR #### [facility] [address] [address] [address] Alfredo Lizama UR MICRO IND INDICATED Normal The [facility] Comment on above: Performed By: #### U MICRO, ERUR #### [facility] [address] [place] [address] Dr. Alfredo Lizama Urobilinogen Qn (U) 0.2 {Tesha'U}/dL Normal 0.2 - 1. 0 The [facility] Comment on above: Performed By: #### U MICRO, ERUR #### [facility] [address] [place] [address] Dr. Alfredo Lizama URINE MICROSCOPIC ONLYon BACTERIA MODERATE Abnormal NONE SEEN The [facility] Comment on above: Performed By: #### U MICRO, ERUR #### [facility] [address] [place] [address] Dr. Alfredo Lizama Bacteria identified Cx Nom (U) INDICATED Normal The [facility] Comment on above: Performed By: #### U MICRO, ERUR #### [facility] [address] [place] [address] Dr. Alfredo Lizama CAST NONE SEEN Normal NONE SEEN The [facility] Comment on above: Performed By: #### U MICRO, ERUR #### [facility] [address] [place] [address] Dr. Alfredo Lizama Crystals LM Nom (Urine sed) NONE SEEN Normal NONE SEEN The [facility] Comment on above: Performed By: #### U MICRO, ERUR #### [facility] [address] [place] [address] Dr. Alfredo Lizama Epithelial cells LM Ql (Urine sed) FEW Abnormal NONE SEEN /RARE The [facility] Comment on above: Performed By: #### U MICRO, ERUR #### [facility] [address] [place] [address] Dr. Alfredo Lizama MUCOUS NONE SEEN Normal NONE SEEN The [facility] Comment on above: Performed By: #### U MICRO, ERUR #### [facility] [address] [place] [address] Dr. Alfredo Lizama RBC 5-10 Abnormal 0-2 The [facility] Comment on above: Performed By: #### U MICRO, ERUR #### [facility] [address] [place] [address] Dr. Alfredo Lizama WBC (U) [#/Vol] /uL Abnormal NONE SEEN The [facility] Comment on above: Performed By: #### U MICRO, ERUR #### [facility] [address] [place] [address] Dr. Alfredo Lizama Basic Metabolic Panelon - Calcium [Mass/Vol] 8.9 mg/dL Normal 8.2-10.2 [facility] Comment on above: Performed By: #### C BC, CMP, PAB #### [facility] [address] Chloride [Moles/Vol] 101 mmol/L Normal 95-114 [facility] Comment on above: Performed By: #### C BC, CMP, PAB #### [facility] [address] CO2 [Moles/Vol] 29.0 mmol/L Normal 22.0-30.0 [facility] Comment on above: Performed By: #### C BC, CMP, PAB #### [address] Creatinine [Mass/Vol] 0.48 mg/dL Normal 0.44-1.03 [facility] Comment on above: Performed By: #### C BC, CMP, PAB #### [place] [address] [place] Creatinine Clr Calc Pharmacy 150.29 [facility] Comment on above: Result Comment: PERF ORMED BY: [place] [address] PATHOLOGIST [employer] SUPERVISOR HUY COX M.D. Performed By: #### C BC, CMP, PAB #### [address] Estimated GFR ( July > 60 [facility] Comment on above: Result Comment: GFR estimated reference range: According to KDOQI guidelines, <60 ml/min/1.73m2 is sufficient to diagnose a patient with chronic kidney disease. Performed By: #### C BC, CMP, PAB #### [address] Estimated GFR (Non- Am > 60 [facility] Comment on above: Performed By: #### C BC, CMP, PAB #### [place] [address] [place] Glucose [Mass/Vol] 111 mg/dL High 70-100 [facility] Comment on above: Result Comment: [place] Glucose Reference Range is dependent on time and content of last meal. Glucose of more than 200 mg/dL in a nonstressed, ambulatory subject supports the diagnosis of Diabetes Mellitus. ADA recommended reference range Performed By: #### C BC, CMP, PAB #### [facility] [address] Potassium [Moles/Vol] 3.6 mmol/L Normal 3.5-5.1 [facility] Comment on above: Performed By: #### C BC, CMP, PAB #### [facility] [address] Sodium [Moles/Vol] 138 mmol/L Normal 136-146 [facility] Comment on above: Performed By: #### C BC, CMP, PAB #### [facility] [address] Urea nitrogen [Mass/Vol] 10 mg/dL Normal 9-23 [facility] Comment on above: Performed By: #### C BC, CMP, PAB #### [facility] [address] Complete Blood Count Auto Di ffon 11-19-2021 Basophils (Bld) [#/Vol] 0.1 10*3/uL Normal 0.0-0.2 [facility] Comment on above: Result Comment: PERF ORMED BY: [place] [address] PATHOLOGIST [employer] SUPERVISOR HUY COX M.D. Performed By: #### C BC, CMP, PAB #### [facility] [address] [place] [address] [place] Basophils/100 WBC (Bld) 0.8 % Normal . [facility] Comment on above: Performed By: #### C BC, CMP, PAB #### [facility] [address] [place] [address] [place] Eosinophils (Bld) [#/Vol] 0.4 10*3/uL Normal 0.0-0.45 [facility] Comment on above: Performed By: #### C BC, CMP, PAB #### [facility] [address] [place] [address] [place] Eosinophils/100 WBC (Bld) 5.8 % Normal . [facility] Comment on above: Performed By: #### C BC, CMP, PAB #### [facility] [address] Erythrocyte distribution width (RBC) [Ratio] 14.3 % Normal 11.9-15.3 [facility] Comment on above: Performed By: #### C BC, CMP, PAB #### [facility] [address] Hematocrit (Bld) [Volume fraction] 36.0 % Normal 34.0-46.4 [facility] Comment on above: Performed By: #### C BC, CMP, PAB #### [facility] [address] Hemoglobin (Bld) [Mass/Vol] 11.9 g/dL Normal 11.8-15.4 [facility] Comment on above: Performed By: #### C BC, CMP, PAB #### [facility] [address] [place] [address] [place] Lymphocytes (Bld) [#/Vol] 2.7 10*3/uL Normal 1.00-4.8 [facility] Comment on above: Performed By: #### C BC, CMP, PAB #### [facility] [address] [place] [address] [place] Lymphocytes/100 WBC (Bld) 37.6 % Normal . [facility] Comment on above: Performed By: #### C BC, CMP, PAB #### [facility] [address] [place] [address] [place] MCH (RBC) [Entitic mass] 28.1 pg Normal 24.7-34.3 [facility] Comment on above: Performed By: #### C BC, CMP, PAB #### [facility] [address] [place] [address] [place] MCV (RBC) [Entitic vol] 85.3 fL Normal 80-100 [facility] Comment on above: Performed By: #### C BC, CMP, PAB #### [facility] [address] Mean Corpuscular HGB Conc 32.9 g/dL Normal 32.0-35.0 [facility] Comment on above: Performed By: #### C BC, CMP, PAB #### [facility] [address] [place] [address] [place] Monocytes (Bld) [#/Vol] 0.4 10*3/uL Normal 0.0-0.8 [facility] Comment on above: Performed By: #### C BC, CMP, PAB #### [facility] [address] Monocytes/100 WBC (Bld) 5.2 % Normal . [facility] Comment on above: Performed By: #### C BC, CMP, PAB #### [facility] [address] Neutrophils (Bld) [#/Vol] 3.7 10*3/uL Normal 1.8-7.7 [facility] Comment on above: Performed By: #### C BC, CMP, PAB #### [facility] [address] Neutrophils/100 WBC (Bld) 50.6 % Normal . [facility] Comment on above: Performed By: #### C BC, CMP, PAB #### [facility] [address] [place] [address] [place] Nucleated RBC/100 WBC (Bld) [Ratio] 0.0 % Normal 0-0.5 [facility] Comment on above: Performed By: #### C BC, CMP, PAB #### [facility] [address] [place] [address] [place] Platelet mean volume (Bld) [Entitic vol] 7.6 fL Normal 6.3-10.7 [facility] Comment on above: Performed By: #### C BC, CMP, PAB #### [facility] [address] [place] [address] [place] Platelets (Bld) [#/Vol] 252 10*3/uL Normal 150-450 [facility] Comment on above: Performed By: #### C BC, CMP, PAB #### [facility] [address] [place] [address] RBC (Bld) [#/Vol] 4.22 10*6/uL Normal 3.60-5.00 [facility] Comment on above: Performed By: #### C BC, CMP, PAB #### [address] WBC (Bld) [#/Vol] 7.2 10*3/uL Normal 4.5-11.0 [facility] Comment on above: Performed By: #### C BC, CMP, PAB #### [address] Ammoniaon 11-11-2021 Ammonia (P) [Moles/Vol] 26 umol/L Normal 11-35 [facility] Comment on above: Result Comment: PERF ORMED BY: [place] [address] PATHOLOGIST [employer] SUPERVISOR HUY COX M.D. Performed By: #### C BC, CMP, PAB #### [address] Hepatic Panelon 11-11-2021 Albumin [Mass/Vol] 3.0 g/dL Low 3.2-5.5 [facility] Comment on above: Performed By: #### C BC, CMP, PAB #### [address] Albumin/Globulin [Mass ratio] 1.0 {ratio} Normal [facility] Comment on above: Performed By: #### C BC, CMP, PAB #### [address] ALP [Catalytic activity/Vol] 187 U/L High 32-92 [facility] Comment on above: Result Comment: PERF ORMED BY: [place] [address] PATHOLOGIST [employer] SUPERVISOR HUY COX M.D. Performed By: #### C BC, CMP, PAB #### [facility] [address] ALT [Catalytic activity/Vol] 54 U/L Normal 10-60 [facility] Comment on above: Performed By: #### C BC, CMP, PAB #### [facility] [address] [place] [id number] [facility] AST [Catalytic activity/Vol] 39 U/L Normal 10-42 [facility] Comment on above: Performed By: #### C BC, CMP, PAB #### [facility] [address] [place] [id number] [facility] Bilirubin [Mass/Vol] 0.3 mg/dL Normal 0.3-1.2 [facility] Comment on above: Performed By: #### C BC, CMP, PAB #### [facility] [address] Bilirubin,Indirect Not performed Normal [facility] Comment on above: Performed By: #### C BC, CMP, PAB #### [address] Bilirubin.indirect [Mass/Vol] mg/dL Normal 0.0-0.4 [facility] Comment on above: Performed By: #### C BC, CMP, PAB #### [address] Globulin (S) [Mass/Vol] 3.0 g/dL Normal [facility] Comment on above: Performed By: #### C BC, CMP, PAB #### [facility] [address] [place] [address] Protein [Mass/Vol] 6.0 g/dL Low 6.1-7.9 [facility] Comment on above: Performed By: #### C BC, CMP, PAB #### [facility] [address] [place] [address] Hepatitis Acute Panelon 03-0 HBsAg Screen Negative Normal Negative [facility] Comment on above: Performed By: #### C BC, CMP, PAB #### [address] Hepatitis A Antibody IgM Negative Normal Negative [facility] Comment on above: Performed By: #### C BC, CMP, PAB #### [address] Hepatitis B Core Antibody IgM Negative Normal Negative [facility] Comment on above: Performed By: #### C BC, CMP, PAB #### [address] Hepatitis C Virus Antibody 0.2 Normal 0.0-0.9 [facility] Comment on above: Performed By: #### C BC, CMP, PAB #### [address] Interpretation Hepatitis C Normal . [facility] Comment on above: Result Comment: Nega tive Not infected with HCV, unless recent infection is suspected or other evidence exists to indicate HCV infection. Performed at: - [facility] [place] [id number] Spindle Tester: Pedro Luis José PhD, Phone: [phone] PERFORMED BY: [place] [address] PATHOLOGIST LINEN ROOM SUPERVISOR HUY COX M.D. Performed By: #### C BC, CMP, PAB #### [address] US liveron 11-11-2021 liver [facility] Main [place] [address] [place] [address] Ultrasound Report Signed Patient: Morales Lee MR#: [id number] : 1975 Acct:[id number] Age/Sex: 46 / F ADM Date: 10/29/21 Loc: Room: [address] [place] [address] Type: ADM IN Attending Dr: Richard Acevedo [...] Alexandru Pond M.D.11/11/2021 10:23 AM Dictation Location: [place] [address] Tech: Ermelinda Diaz Transcribed By: CORTNEY 11/11/21 1023 Dictated By: Alexandru Pond DO 11/11/21 1018 Signed By: 11/11/21 1023 Normal [facility] Complete Blood Count Auto Di ffon 11-10-2021 Basophils (Bld) [#/Vol] 0.1 10*3/uL Normal 0.0-0.2 [facility] Comment on above: Result Comment: PERF ORMED BY: [place] [address] PATHOLOGIST LINEN ROOM SUPERVISOR HUY COX M.D. Performed By: #### C BC #### [facility] [address] [place] [address] [place] Basophils/100 WBC (Bld) 1.2 % Normal . [facility] Comment on above: Performed By: #### C BC #### [facility] [address] [place] [address] [place] Eosinophils (Bld) [#/Vol] 0.3 10*3/uL Normal 0.0-0.45 [facility] Comment on above: Performed By: #### C BC #### [place] [address] [place] Eosinophils/100 WBC (Bld) 5.9 % Normal . [facility] Comment on above: Performed By: #### C BC #### [facility] [address] Erythrocyte distribution width (RBC) [Ratio] 14.2 % Normal 11.9-15.3 [facility] Comment on above: Performed By: #### C BC #### [facility] [address] Hematocrit (Bld) [Volume fraction] 37.1 % Normal 34.0-46.4 [facility] Comment on above: Performed By: #### C BC #### [address] Hemoglobin (Bld) [Mass/Vol] 12.3 g/dL Normal 11.8-15.4 [facility] Comment on above: Performed By: #### C BC #### [address] Lymphocytes (Bld) [#/Vol] 2.0 10*3/uL Normal 1.00-4.8 [facility] Comment on above: Performed By: #### C BC #### [address] Lymphocytes/100 WBC (Bld) 36.5 % Normal . [facility] Comment on above: Performed By: #### C BC #### [address] MCH (RBC) [Entitic mass] 28.6 pg Normal 24.7-34.3 [facility] Comment on above: Performed By: #### C BC #### [address] MCV (RBC) [Entitic vol] 86.5 fL Normal 80-100 [facility] Comment on above: Performed By: #### C BC #### [address] Mean Corpuscular HGB Conc 33.1 g/dL Normal 32.0-35.0 [facility] Comment on above: Performed By: #### C BC #### [address] Monocytes (Bld) [#/Vol] 0.3 10*3/uL Normal 0.0-0.8 [facility] Comment on above: Performed By: #### C BC #### [facility] [address] Monocytes/100 WBC (Bld) 5.3 % Normal . [facility] Comment on above: Performed By: #### C BC #### [facility] [address] Neutrophils (Bld) [#/Vol] 2.8 10*3/uL Normal 1.8-7.7 [facility] Comment on above: Performed By: #### C BC #### [address] Neutrophils/100 WBC (Bld) 51.1 % Normal . [facility] Comment on above: Performed By: #### C BC #### [address] Nucleated RBC/100 WBC (Bld) [Ratio] 0.1 % Normal 0-0.5 [facility] Comment on above: Performed By: #### C BC #### [address] Platelet mean volume (Bld) [Entitic vol] 7.8 fL Normal 6.3-10.7 [facility] Comment on above: Performed By: #### C BC #### [place] [address] [place] Platelets (Bld) [#/Vol] 214 10*3/uL Normal 150-450 [facility] Comment on above: Performed By: #### C BC #### [place] [address] [place] RBC (Bld) [#/Vol] 4.28 10*6/uL Normal 3.60-5.00 [facility] Comment on above: Performed By: #### C BC #### [place] [address] [place] WBC (Bld) [#/Vol] 5.4 10*3/uL Normal 4.5-11.0 [facility] Comment on above: Performed By: #### C BC #### [address] Comprehensive Metabolic Pane shree 11-10-2021 Albumin [Mass/Vol] 2.9 g/dL Low 3.2-5.5 [facility] Comment on above: Performed By: #### C BC, CMP, PAB #### [address] Albumin/Globulin [Mass ratio] 0.9 {ratio} Normal [facility] Comment on above: Performed By: #### C BC, CMP, PAB #### [address] ALP [Catalytic activity/Vol] 201 U/L High 32-92 [facility] Comment on above: Performed By: #### C BC, CMP, PAB #### [address] ALT [Catalytic activity/Vol] 67 U/L High 10-60 [facility] Comment on above: Performed By: #### C BC, CMP, PAB #### [address] AST [Catalytic activity/Vol] 66 U/L High 10-42 [facility] Comment on above: Performed By: #### C BC, CMP, PAB #### [place] [address] [place] Bilirubin [Mass/Vol] 0.4 mg/dL Normal 0.3-1.2 [facility] Comment on above: Performed By: #### C BC, CMP, PAB #### [facility] [address] [place] [address] [place] Calcium [Mass/Vol] 8.7 mg/dL Normal 8.2-10.2 [facility] Comment on above: Performed By: #### C BC, CMP, PAB #### [place] [address] [place] Chloride [Moles/Vol] 100 mmol/L Normal 95-114 [facility] Comment on above: Performed By: #### C BC, CMP, PAB #### [facility] [address] CO2 [Moles/Vol] 26.4 mmol/L Normal 22.0-30.0 [facility] Comment on above: Performed By: #### C BC, CMP, PAB #### [facility] [address] Creatinine [Mass/Vol] 0.50 mg/dL Normal 0.44-1.03 [facility] Comment on above: Performed By: #### C BC, CMP, PAB #### [address] Creatinine Clr Calc Pharmacy 142.11 [facility] Comment on above: Result Comment: PERF ORMED BY: [place] [address] PATHOLOGIST LINEN ROOM SUPERVISOR HUY COX M.D. Performed By: #### C BC, CMP, PAB #### [address] Estimated GFR ( July > 60 [facility] Comment on above: Result Comment: GFR estimated reference range: According to KDOQI guidelines, <60 ml/min/1.73m2 is sufficient to diagnose a patient with chronic kidney disease. Performed By: #### C BC, CMP, PAB #### [facility] [address] [place] [address] Estimated GFR (Non- Am > 60 [facility] Comment on above: Performed By: #### C BC, CMP, PAB #### [facility] [address] [place] [address] [place] Globulin (S) [Mass/Vol] 3.1 g/dL [facility] Comment on above: Performed By: #### C BC, CMP, PAB #### [facility] [address] [place] [address] [place] Glucose [Mass/Vol] 110 mg/dL High 70-100 [facility] Comment on above: Result Comment: [facility] Glucose Reference Range is dependent on time and content of last meal. Glucose of more than 200 mg/dL in a nonstressed, ambulatory subject supports the diagnosis of Diabetes Mellitus. ADA recommended reference range Performed By: #### C DARIUS PATEL, PAB #### [facility] [address] [place] [id number] [facility] Potassium [Moles/Vol] 4.0 mmol/L Normal 3.5-5.1 [facility] Comment on above: Performed By: #### C DARIUS PATEL, PAB #### [facility] [address] [place] [address] [place] Protein [Mass/Vol] 6.0 g/dL Low 6.1-7.9 [facility] Comment on above: Performed By: #### C DARIUS PATEL, PAB #### [facility] [address] Sodium [Moles/Vol] 136 mmol/L Normal 136-146 [facility] Comment on above: Performed By: #### C DARIUS PATEL, PAB #### [facility] [address] [place] [id number] [place] Urea nitrogen [Mass/Vol] 8 mg/dL Low 9-23 [facility] Comment on above: Performed By: #### C DARIUS PATEL, PAB #### [facility] [address] [place] [id number] [place] Dipstick and Microscopicon 0 11-10-2021 Appearance (U) Turbid Critically abnormal Clear [facility] Comment on above: Order Comment: Name Collection Type:: Alvares Catheter Performed By: #### C JORGE CMP, PAB #### [facility] [address] [place] [id number] [place] Bacteria,Urine 3+ High None Seen [facility] Comment on above: Order Comment: Name Collection Type:: Alvares Catheter Performed By: #### C DARIUS PATEL, PAB #### [facility] [address] [place] [id number] [place] Bilirubin,Urine Negative Normal Negative [facility] Comment on above: Order Comment: Name Collection Type:: Alvares Catheter Performed By: #### C BC, CMP, PAB #### [facility] [address] [place] [address] [place] Color (U) Yellow Normal Yellow [facility] Comment on above: Order Comment: Name Collection Type:: Alvares Catheter Performed By: #### C BC, CMP, PAB #### [facility] [address] [place] [id number] [place] Glucose Ql (U) Normal Normal Normal [facility] Comment on above: Order Comment: Name Collection Type:: Alvares Catheter Performed By: #### C BC, CMP, PAB #### [facility] [address] [place] [address] [place] Hyaline Casts,Urine None Seen Normal 0-1 [facility] Comment on above: Order Comment: Name Collection Type:: Alvares Catheter Performed By: #### C BC, CMP, PAB #### [facility] [address] [place] [address] [place] Ketones Ql (U) Negative Normal Negative [facility] Comment on above: Order Comment: Name Collection Type:: Alvares Catheter Performed By: #### C BC, CMP, PAB #### [facility] [address] [place] [address] [place] Leukocyte esterase Test strip Ql (U) 3+ High Negative [facility] Comment on above: Order Comment: Name Collection Type:: Alvares Catheter Performed By: #### C BC, CMP, PAB #### [facility] [address] [place] [address] [place] Nitrite,Urine Positive High Negative [facility] Comment on above: Order Comment: Name Collection Type:: Alvares Catheter Performed By: #### C BC, CMP, PAB #### [facility] [address] [place] [address] [place] Occult Blood,Urine 2+ High Negative [facility] Comment on above: Order Comment: Name Collection Type:: Alvares Catheter Result Comment: PERF ORMED BY: [place] [address] PATHOLOGIST LINEN ROOM SUPERVISOR HUY COX M.D. Performed By: #### C BC, CMP, PAB #### [facility] [address] [place] [address] Other Casts,Urine None Seen Normal None Seen [facility] Comment on above: Order Comment: Name Collection Type:: Alvares Catheter Result Comment: PERF ORMED BY: [place] [address] PATHOLOGIST LINEN ROOM SUPERVISOR HUY COX M.D. Performed By: #### C BC, CMP, PAB #### [address] pH (U) 8.5 [pH] Normal 5.0-9.0 [facility] Comment on above: Order Comment: Name Collection Type:: Alvares Catheter Performed By: #### C BC, CMP, PAB #### [address] Protein,Urine Negative Normal Negative [facility] Comment on above: Order Comment: Name Collection Type:: Alvares Catheter Performed By: #### C BC, CMP, PAB #### [address] RBC,Urine 1-2 Normal 0-4 [facility] Comment on above: Order Comment: Name Collection Type:: Alvares Catheter Performed By: #### C BC, CMP, PAB #### [address] Specificy [place],Urine 1.006 Normal 1.001-1.030 [facility] Comment on above: Order Comment: Name Collection Type:: Alvares Catheter Performed By: #### C BC, CMP, PAB #### [place] [address] [place] Squamous Epithelial Cell,Urine 3-4 High 0-2 [facility] Comment on above: Order Comment: Name Collection Type:: Alvares Catheter Performed By: #### C BC, CMP, PAB #### [address] Triple Phosphate Crystal,Urine 2+ Normal [facility] Comment on above: Order Comment: Name Collection Type:: Alvares Catheter Performed By: #### C BC, CMP, PAB #### [address] [place] [address] [place] Urobilinogen,Urine Normal Normal Normal [facility] Comment on above: Order Comment: Name Collection Type:: Alvares Catheter Performed By: #### C JORGE, DARIUS, PAB #### [facility] [address] [place] [id number] [facility] WBC,Urine 20-49 High 0-4 [facility] Comment on above: Order Comment: Name Collection Type:: Alvares Catheter Performed By: #### C JORGE, DARIUS, PAB #### [facility] [address] [place] [id number] [facility] Urine Cultureon 11-10-2021 Bacteria identified Cx Nom (U) ORGANISM: Providencia rettgeri (O:PRORET) [place] Count >100,000 Aerobic JOSE Charge (NUC86) SUSCEPTIBILITY [...] RESISTANT TO ALL B-LACTAM DRUGS. PERFORMED BY: [place] [address] PATHOLOGIST LINEN ROOM SUPERVISOR HUY COX M.D. [facility] Comment on above: Performed By: #### C BC, CMP, PAB #### [address] Basic Metabolic Panelon 03-0 Calcium [Mass/Vol] 8.7 mg/dL Normal 8.2-10.2 [facility] Comment on above: Performed By: #### B MP, CBC #### [facility] [address] Chloride [Moles/Vol] 102 mmol/L Normal 95-114 [facility] Comment on above: Performed By: #### B MP, CBC #### [address] CO2 [Moles/Vol] 25.5 mmol/L Normal 22.0-30.0 [facility] Comment on above: Performed By: #### B MP, CBC #### [address] Creatinine [Mass/Vol] 0.71 mg/dL Normal 0.44-1.03 [facility] Comment on above: Performed By: #### B MP, CBC #### [address] Creatinine Clr Calc Pharmacy 100.08 [facility] Comment on above: Result Comment: PERF ORMED BY: [place] [address] PATHOLOGIST LINEN ROOM SUPERVISOR HUY COX M.D. Performed By: #### B MP, CBC #### [address] Estimated GFR ( July > 60 [facility] Comment on above: Result Comment: GFR estimated reference range: According to KDOQI guidelines, <60 ml/min/1.73m2 is sufficient to diagnose a patient with chronic kidney disease. Performed By: #### B MP, CBC #### [address] Estimated GFR (Non- Am > 60 [facility] Comment on above: Performed By: #### B MP, CBC #### [address] Glucose [Mass/Vol] 104 mg/dL High 70-100 [facility] Comment on above: Result Comment: [place] Glucose Reference Range is dependent on time and content of last meal. Glucose of more than 200 mg/dL in a nonstressed, ambulatory subject supports the diagnosis of Diabetes Mellitus. ADA recommended reference range Performed By: #### B MP, CBC #### [address] Potassium [Moles/Vol] 4.1 mmol/L Normal 3.5-5.1 [facility] Comment on above: Performed By: #### B MP, CBC #### [address] Sodium [Moles/Vol] 137 mmol/L Normal 136-146 [facility] Comment on above: Performed By: #### B MP, CBC #### [address] Urea nitrogen [Mass/Vol] 10 mg/dL Normal 9-23 [facility] Comment on above: Performed By: #### B MP, CBC #### [address] Complete Blood Count Auto Di ffon 11-06-2021 Basophils (Bld) [#/Vol] 0.1 10*3/uL Normal 0.0-0.2 [facility] Comment on above: Result Comment: PERF ORMED BY: [place] [address] PATHOLOGIST LINEN ROOM SUPERVISOR HUY COX M.D. Performed By: #### B MP, CBC #### [place] [address] [place] Basophils/100 WBC (Bld) 0.8 % Normal . [facility] Comment on above: Performed By: #### B MP, CBC #### [place] [address] [place] Eosinophils (Bld) [#/Vol] 0.4 10*3/uL Normal 0.0-0.45 [facility] Comment on above: Performed By: #### B MP, CBC #### [address] Eosinophils/100 WBC (Bld) 5.5 % Normal . [facility] Comment on above: Performed By: #### B MP, CBC #### [address] Erythrocyte distribution width (RBC) [Ratio] 14.2 % Normal 11.9-15.3 [facility] Comment on above: Performed By: #### B MP, CBC #### [address] Hematocrit (Bld) [Volume fraction] 36.0 % Normal 34.0-46.4 [facility] Comment on above: Performed By: #### B MP, CBC #### [address] Hemoglobin (Bld) [Mass/Vol] 12.0 g/dL Normal 11.8-15.4 [facility] Comment on above: Performed By: #### B MP, CBC #### [address] Lymphocytes (Bld) [#/Vol] 2.4 10*3/uL Normal 1.00-4.8 [facility] Comment on above: Performed By: #### B MP, CBC #### [address] Lymphocytes/100 WBC (Bld) 35.2 % Normal . [facility] Comment on above: Performed By: #### B MP, CBC #### [address] MCH (RBC) [Entitic mass] 28.9 pg Normal 24.7-34.3 [facility] Comment on above: Performed By: #### B MP, CBC #### [address] MCV (RBC) [Entitic vol] 86.4 fL Normal 80-100 [facility] Comment on above: Performed By: #### B MP, CBC #### [facility] [address] Mean Corpuscular HGB Conc 33.4 g/dL Normal 32.0-35.0 [facility] Comment on above: Performed By: #### B MP, CBC #### [facility] [address] [place] [address] [place] Monocytes (Bld) [#/Vol] 0.3 10*3/uL Normal 0.0-0.8 [facility] Comment on above: Performed By: #### B MP, CBC #### [facility] [address] Monocytes/100 WBC (Bld) 4.8 % Normal . [facility] Comment on above: Performed By: #### B MP, CBC #### [facility] [address] Neutrophils (Bld) [#/Vol] 3.7 10*3/uL Normal 1.8-7.7 [facility] Comment on above: Performed By: #### B MP, CBC #### [facility] [address] Neutrophils/100 WBC (Bld) 53.7 % Normal . [facility] Comment on above: Performed By: #### B MP, CBC #### [facility] [address] [place] [address] [place] Nucleated RBC/100 WBC (Bld) [Ratio] 0.0 % Normal 0-0.5 [facility] Comment on above: Performed By: #### B MP, CBC #### [facility] [address] [place] [address] [place] Platelet mean volume (Bld) [Entitic vol] 8.2 fL Normal 6.3-10.7 [facility] Comment on above: Performed By: #### B MP, CBC #### [facility] [address] [place] [address] [place] Platelets (Bld) [#/Vol] 235 10*3/uL Normal 150-450 [facility] Comment on above: Performed By: #### B MP, CBC #### [facility] [address] RBC (Bld) [#/Vol] 4.17 10*6/uL Normal 3.60-5.00 [facility] Comment on above: Performed By: #### B MP, CBC #### [facility] [address] WBC (Bld) [#/Vol] 6.9 10*3/uL Normal 4.5-11.0 [facility] Comment on above: Performed By: #### B MP, CBC #### [facility] [address] US venous duplex LE BIon US venous duplex LE BI [facility] Main [place] [address] [place] [address] Ultrasound Report Signed Patient: Morales Lee MR#: [id number] : 1975 Acct:[id number] Age/Sex: 46 / F ADM Date: 10/29/21 Loc: Room: 2B8273-8 Type: ADM IN Attending Dr: Richard Acevedo [...] Carlos Neal MD11/04/2021 11:36 AM Dictation Location: [place] [address] Tech: Natalia Rivas Transcribed By: CORTNEY 11/04/21 1136 Dictated By: Juan Carlos Neal MD 11/04/21 1135 Signed By: 11/04/21 1136 Normal [facility] Complete Blood Count Auto Di ffon 10-30-2021 Basophils (Bld) [#/Vol] 0.0 10*3/uL Normal 0.0-0.2 [facility] Comment on above: Result Comment: PERF ORMED BY: [place] [address] PATHOLOGIST LINEN ROOM SUPERVISOR HUY COX M.D. Performed By: #### C BC, CMP, PAB #### [facility] [address] Basophils/100 WBC (Bld) 0.6 % Normal . [facility] Comment on above: Performed By: #### C BC, CMP, PAB #### [facility] [address] Eosinophils (Bld) [#/Vol] 0.4 10*3/uL Normal 0.0-0.45 [facility] Comment on above: Performed By: #### C BC, CMP, PAB #### [facility] [address] [place] [address] [place] Eosinophils/100 WBC (Bld) 4.9 % Normal . [facility] Comment on above: Performed By: #### C BC, CMP, PAB #### [facility] [address] [place] [address] [place] Erythrocyte distribution width (RBC) [Ratio] 14.3 % Normal 11.9-15.3 [facility] Comment on above: Performed By: #### C BC, CMP, PAB #### [facility] [address] [place] [address] [place] Hematocrit (Bld) [Volume fraction] 36.1 % Normal 34.0-46.4 [facility] Comment on above: Performed By: #### C BC, CMP, PAB #### [facility] [facility] [address] [place] [address] Hemoglobin (Bld) [Mass/Vol] 12.1 g/dL Normal 11.8-15.4 [facility] Comment on above: Performed By: #### C BC, CMP, PAB #### [facility] [address] [place] [address] [place] Lymphocytes (Bld) [#/Vol] 2.8 10*3/uL Normal 1.00-4.8 [facility] Comment on above: Performed By: #### C BC, CMP, PAB #### [facility] [address] [place] [address] [place] Lymphocytes/100 WBC (Bld) 39.0 % Normal . [facility] Comment on above: Performed By: #### C BC, CMP, PAB #### [facility] [address] MCH (RBC) [Entitic mass] 28.7 pg Normal 24.7-34.3 [facility] Comment on above: Performed By: #### C BC, CMP, PAB #### [facility] [address] MCV (RBC) [Entitic vol] 85.7 fL Normal 80-100 [facility] Comment on above: Performed By: #### C BC, CMP, PAB #### [facility] [address] Mean Corpuscular HGB Conc 33.4 g/dL Normal 32.0-35.0 [facility] Comment on above: Performed By: #### C BC, CMP, PAB #### [facility] [address] [place] [address] [place] Monocytes (Bld) [#/Vol] 0.4 10*3/uL Normal 0.0-0.8 [facility] Comment on above: Performed By: #### C BC, CMP, PAB #### [facility] [address] [place] [address] [place] Monocytes/100 WBC (Bld) 5.2 % Normal . [facility] Comment on above: Performed By: #### C BC, CMP, PAB #### [facility] [address] [place] [address] [place] Neutrophils (Bld) [#/Vol] 3.6 10*3/uL Normal 1.8-7.7 [facility] Comment on above: Performed By: #### C BC, CMP, PAB #### [address] Neutrophils/100 WBC (Bld) 50.3 % Normal . [facility] Comment on above: Performed By: #### C BC, CMP, PAB #### [facility] [address] Nucleated RBC/100 WBC (Bld) [Ratio] 0.0 % Normal 0-0.5 [facility] Comment on above: Performed By: #### C BC, CMP, PAB #### [address] Platelet mean volume (Bld) [Entitic vol] 8.1 fL Normal 6.3-10.7 [facility] Comment on above: Performed By: #### C BC, CMP, PAB #### [address] Platelets (Bld) [#/Vol] 261 10*3/uL Normal 150-450 [facility] Comment on above: Performed By: #### C BC, CMP, PAB #### [address] RBC (Bld) [#/Vol] 4.22 10*6/uL Normal 3.60-5.00 [facility] Comment on above: Performed By: #### C BC, CMP, PAB #### [address] WBC (Bld) [#/Vol] 7.2 10*3/uL Normal 4.5-11.0 [facility] Comment on above: Performed By: #### C BC, CMP, PAB #### [address] Comprehensive Metabolic Pane shree 10-30-2021 Albumin [Mass/Vol] 2.8 g/dL Low 3.2-5.5 [facility] Comment on above: Performed By: #### C BC, CMP, PAB #### [address] [place] [address] [place] Albumin/Globulin [Mass ratio] 1.0 {ratio} Normal [facility] Comment on above: Performed By: #### C BC, CMP, PAB #### [address] ALP [Catalytic activity/Vol] 116 U/L High 32-92 [facility] Comment on above: Performed By: #### C BC, CMP, PAB #### [address] ALT [Catalytic activity/Vol] 20 U/L Normal 10-60 [facility] Comment on above: Performed By: #### C BC, CMP, PAB #### [address] AST [Catalytic activity/Vol] 22 U/L Normal 10-42 [facility] Comment on above: Performed By: #### C BC, CMP, PAB #### [address] Bilirubin [Mass/Vol] 0.5 mg/dL Normal 0.3-1.2 [facility] Comment on above: Performed By: #### C BC, CMP, PAB #### [address] Calcium [Mass/Vol] 8.7 mg/dL Normal 8.2-10.2 [facility] Comment on above: Performed By: #### C BC, CMP, PAB #### [address] Chloride [Moles/Vol] 105 mmol/L Normal 95-114 [facility] Comment on above: Performed By: #### C BC, CMP, PAB #### [facility] [address] [place] [address] CO2 [Moles/Vol] 26.8 mmol/L Normal 22.0-30.0 [facility] Comment on above: Performed By: #### C BC, CMP, PAB #### [facility] [address] [place] [address] Creatinine [Mass/Vol] 0.51 mg/dL Normal 0.44-1.03 [facility] Comment on above: Performed By: #### C DARIUS PATEL, PAB #### [facility] [address] Creatinine Clr Calc Pharmacy 123.73 [facility] Comment on above: Performed By: #### C DARIUS PATEL, PAB #### [facility] [address] Estimated GFR ( July > 60 [facility] Comment on above: Result Comment: GFR estimated reference range: According to KDOQI guidelines, <60 ml/min/1.73m2 is sufficient to diagnose a patient with chronic kidney disease. Performed By: #### C DARIUS PATEL, PAB #### [facility] [address] Estimated GFR (Non- Am > 60 [facility] Comment on above: Performed By: #### C DARIUS PATEL, PAB #### [address] Globulin (S) [Mass/Vol] 2.8 g/dL [facility] Comment on above: Performed By: #### C DARIUS PATEL, PAB #### [address] Glucose [Mass/Vol] 115 mg/dL High 70-100 [facility] Comment on above: Result Comment: [place] Glucose Reference Range is dependent on time and content of last meal. Glucose of more than 200 mg/dL in a nonstressed, ambulatory subject supports the diagnosis of Diabetes Mellitus. ADA recommended reference range Performed By: #### C DARIUS PATEL, PAB #### [facility] [address] Potassium [Moles/Vol] 3.7 mmol/L Normal 3.5-5.1 [facility] Comment on above: Performed By: #### C DARIUS PATEL, PAB #### [facility] [address] Protein [Mass/Vol] 5.6 g/dL Low 6.1-7.9 [facility] Comment on above: Performed By: #### C BC, CMP, PAB #### [facility] [address] [place] [address] [place] Sodium [Moles/Vol] 140 mmol/L Normal 136-146 [facility] Comment on above: Performed By: #### C BC, CMP, PAB #### [facility] [address] [place] [address] [place] Urea nitrogen [Mass/Vol] 7 mg/dL Low 9- [facility] Comment on above: Performed By: #### C BC, CMP, PAB #### [facility] [address] [place] [address] [place] Dipstick and Microscopicon 0 10-30-2021 Appearance (U) Clear Normal Clear [facility] Comment on above: Order Comment: Name Collection Type:: Voided Performed By: #### A DDONUAPLUS, CUU #### [place] [address] [place] Bacteria,Urine 4+ High None Seen [facility] Comment on above: Order Comment: Name Collection Type:: Voided Performed By: #### A DDONUAPLUS, CUU #### [place] [address] [place] Bilirubin,Urine Negative Normal Negative [facility] Comment on above: Order Comment: Name Collection Type:: Voided Performed By: #### A DDONUAPLUS, CUU #### [facility] [address] [place] [address] [place] Color (U) Yellow Normal Yellow [facility] Comment on above: Order Comment: Name Collection Type:: Voided Performed By: #### A DDONUAPLUS, CUU #### [facility] [address] [place] [address] [place] Glucose Ql (U) Normal Normal Normal [facility] Comment on above: Order Comment: Name Collection Type:: Voided Performed By: #### A DDONUAPLUS, CUU #### [facility] [address] [place] [address] [place] Hyaline Casts,Urine 0-8 Normal 0-8 [facility] Comment on above: Order Comment: Name Collection Type:: Voided Result Comment: PERF ORMED BY: [place] [address] PATHOLOGIST LINEN ROOM SUPERVISOR HUY COX M.D. Performed By: #### A DDONUAPLUS, CUU #### [place] [address] [place] Ketones Ql (U) Negative Normal Negative [facility] Comment on above: Order Comment: Name Collection Type:: Voided Performed By: #### A DDONUAPLUS, CUU #### [address] Leukocyte esterase Test strip Ql (U) 3+ High Negative [facility] Comment on above: Order Comment: Name Collection Type:: Voided Performed By: #### A DDONUAPLUS, CUU #### [place] [address] [place] Nitrite,Urine Positive High Negative [facility] Comment on above: Order Comment: Name Collection Type:: Voided Performed By: #### A DDONUAPLUS, CUU #### [place] [address] [place] Occult Blood,Urine Negative Normal Negative [facility] Comment on above: Order Comment: Name Collection Type:: Voided Result Comment: PERF ORMED BY: [place] [address] PATHOLOGIST LINEN ROOM SUPERVISOR HUY COX M.D. Performed By: #### A DDONUAPLUS, CUU #### [place] [address] [place] pH (U) 5.5 [pH] Normal 5.0-9.0 [facility] Comment on above: Order Comment: Name Collection Type:: Voided Performed By: #### A DDONUAPLUS, CUU #### [place] [address] [place] Protein,Urine Negative Normal Negative [facility] Comment on above: Order Comment: Name Collection Type:: Voided Performed By: #### A DDONUAPLUS, CUU #### [address] RBC LM.HPF (Urine sed) [#/Area] 0 /[HPF] Normal 0-4 [facility] Comment on above: Order Comment: Name Collection Type:: Voided Performed By: #### A DDONUAPLUS, CUU #### [address] Specificy [place],Urine 1.012 Normal 1.001-1.030 [facility] Comment on above: Order Comment: Name Collection Type:: Voided Performed By: #### A DDONUAPLUS, CUU #### [address] Squamous Epithelial Cell,Urine 0-1 Normal 0-2 [facility] Comment on above: Order Comment: Name Collection Type:: Voided Performed By: #### A DDONUAPLUS, CUU #### [address] Urobilinogen,Urine Normal Normal Normal [facility] Comment on above: Order Comment: Name Collection Type:: Voided Performed By: #### A DDONUAPLUS, CUU #### [address] WBC,Urine 20-49 High 0-4 [facility] Comment on above: Order Comment: Name Collection Type:: Voided Performed By: #### A DDONUAPLUS, CUU #### [address] Prealbuminon 10-30-2021 Prealbumin [Mass/Vol] 13.1 mg/dL Low 18.0-38.0 [facility] Comment on above: Result Comment: PERF ORMED BY: [place] [address] PATHOLOGIST LINEN ROOM SUPERVISOR HUY COX M.D. Performed By: #### C BC, CMP, PAB #### [address] Urine Cultureon 10-30-2021 Bacteria identified Cx Nom (U) ORGANISM: Escherichia coli (O:ESCCOL) [place] Count >100,000 Aerobic JOSE Charge (NUC86) SUSCEPTIBILITY [...] <2 Tobramycin S <4 Trimethoprim/Sulfamethoxazo le S <2/38 S = SUSCEPTIBLE I = INTERMEDIATE R [...] RESISTANT TO ALL B-LACTAM DRUGS. PERFORMED BY: [place] [address] PATHOLOGIST LINEN ROOM SUPERVISOR HUY COX M.D. Normal [facility] Comment on above: Performed By: #### A DDONUAPLUS, SERENA #### [facility] [address] [place] [address] [place] [facility] SARS-CoV-2 (COVID-19) RNA ADRIÁN+probe Ql (Unsp spec) Negative Normal Negative [facility] Comment on above: Order Comment: Healt hcare Worker?: N Result Comment: Testing for SARS-CoV-2 by RT-PCR This test was developed and its performance characteristics determined by [employer], [employer] and validated at the [facility]. This test has not been FDA [...] is terminated or revoked sooner. PERFORMED BY: [place] [address] PATHOLOGIST LINEN ROOM SUPERVISOR HUY COX M.D. Performed By: #### C OVID 19 [facility] #### [address] Clinical Event Note-Need for Hospital Bedon [...] of the lumbar region. Provider/Team Contact Info-Pager [phone] Electronic Signatures: Sharmin Guaman ([employer] CONSULTANT-FINAL INSPECTOR MOVEMENT ASSEMBLY) (Signed 02-Oct-2021 15:19) Authored: Clinical Event Note Last Updated: 02-Oct-2021 15:19 by Sharmin Guaman ([employer] D[employer] CONSULTANT-FINAL INSPECTOR MOVEMENT ASSEMBLY) [facility] Clinical Event Note-Need for wheel Chairon [...] can self propel or has a career development engineer to provide assistance. Provider/Team Contact Info-Pager [phone] Electronic Signatures: Sharmin Guaman ([employer] D[employer]NAM[employer] CONSULTANT-FINAL INSPECTOR MOVEMENT ASSEMBLY) (Signed 02-Oct-2021 15:27) Authored: Clinical Event Note Last Updated: 02-Oct-2021 15:27 by Sharmin Guaman ([employer] D[employer]NAM[employer] CONSULTANT-FINAL INSPECTOR MOVEMENT ASSEMBLY) [facility] Daily Progress Note-Nuha stearns 10-02-2021 Daily Progress Note-Neurosurgery Service: Neurosurgery Subjective Data: MORALES LEE is a 46 year old Female who is Hospital Day # 18 and POD #11 for posterior L4-L5 decompression;posterior L4-L5 arthrodesis. Objective Data: Objective Information: T PRBPSpO2 [id number]/8397% Date/Time10/02: 1: 1: 1: 1: Range(36.2C - 37.6C ) (76 - 88 ) (14 - 18 ) (104 - 138 )/ (68 - 83 ) (93% - 97% ) Highest temp of 37.6 C was recorded at 10/01 16:06 Pain reported at 10/01 16:06: 0 = None ---- Intake and Output ----- Mn/Dy/Year TimeIntakeOutputNet Oct 02, 2021 6:00 am000 Oct 01, 2021 10:00 pm000 Oct 01, 2021 2:00 [id number] The Intake and Output Totals for the [...] the note. I personally evaluated the patient [id number] Electronic Signatures: Kenneth Philippe (Resident)) (Signed 02-Oct-2021 06:52) Authored: Service, Subjective Data, Objective Data, Assessment and Plan, Note Completion Lex Frederick) (Signed 02-Oct-2021 15:16) Authored: Note Completion Co-Signer: Service, Subjective Data, Objective Data, Assessment and Plan, Note Completion Last Updated: 02-Oct-2021 15:16 by Lex Frederick) [facility] Clinical Event Note-Discharg e discussionon 10-01-2021 [...] duration of trip. Electronic Signatures: Ambrocio Izaguirre ([employer] D[employer] CONSULTANT-FINAL INSPECTOR MOVEMENT ASSEMBLY) (Signed 01-Oct-2021 17:11) Authored: Clinical Event Note Last Updated: 01-Oct-2021 17:11 by Ambrocio Izaguirre ([employer] D[employer] CONSULTANT-FINAL INSPECTOR MOVEMENT ASSEMBLY) [facility] Clinical Event Note-Need for hospital bedon [...] when lying flat. Electronic Signatures: Ambrocio Izaguirre ([employer] D[employer] CONSULTANT-FINAL INSPECTOR MOVEMENT ASSEMBLY) (Signed 01-Oct-2021 14:48) Authored: Clinical Event Note Last Updated: 01-Oct-2021 14:48 by Ambrocio Izaguirre ([employer] DYNAM[employer] CONSULTANT-FINAL INSPECTOR MOVEMENT ASSEMBLY) [facility] Daily Progress Note-Nuha stearns 10-01-2021 Daily Progress Note-Neurosurgery Service: Neurosurgery Subjective Data: MORALES LEE is a 46 year old Female who is Hospital Day # 17 and POD #10 for posterior L4-L5 decompression;posterior L4-L5 arthrodesis. Objective Data: Objective Information: T PRBPSpO2 [id number]/7194% Date/Time10/01 0: 0: 0: 0: 0:38 Range(35.6C - 36.8C ) (64 - 96 ) (16 - 19 ) (94 - 138 )/ (59 - 83 ) (92% - 94% ) Pain reported at 09/30 9:00: 2 = Mild ---- Intake and Output ----- Mn/Dy/Year TimeIntakeOutputNet Sep 29, 2021 10:00 [id number] Sep 29, 2021 2:00 [id number] Sep 29, 2021 6:00 am000 The Intake [...] documented in the note. Electronic Signatures: Lex Frederick () (Signed 01-Oct-2021 10:29) Authored: Note Completion Co-Signer: Service, Subjective Data, Objective Data, Assessment and Plan, Note Completion Jaya Mosquera ( (Resident)) (Signed 01-Oct-2021 01:35) Authored: Service, Subjective Data, Objective Data, Assessment and Plan, Note Completion Last Updated: 01-Oct-2021 10:29 by Lex Frederick () [facility] Daily Progress Note-Neurosurgery This report has been cancelled. [facility] Daily Progress Note-Neurosur leonidasgaurang 09-30-2021 Daily Progress Note-Neurosurgery Service: Neurosurgery Subjective Data: MORALES LEE is a 46 year old Female who is Hospital Day # 15 and POD #8 for posterior L4-L5 decompression;posterior L4-L5 arthrodesis. Objective Data: Objective Information: T PRBPSpO2 [id number]/7393% Date/Time09/29 16: 16: 16: 16: 16:00 Range(36C - 36.7C ) (67 - 86 ) (17 - 20 ) (94 - 153 )/ (15 - 113 ) (93% - 98% ) Pain reported at 09/29 9:56: 5 = Moderate ---- Intake and Output ----- Mn/Dy/Year TimeIntakeOutputNet Sep 29, 2021 2:00 [id number] Sep 29, 2021 6:00 am000 Sep 28, 2021 10:00 [id number] The Intake and Output Totals for the [...] the note. I personally evaluated the patient [id number] Electronic Signatures: Lex Frederick) (Signed 26-Benjamin-2022 11:18) Authored: Note Completion Co-Signer: Service, Subjective Data, Objective Data, Assessment and Plan, Note Completion Jaya Mosquera (Resident)) (Signed 30-Sep-2021 03:18) Authored: Service, Subjective Data, Objective Data, Assessment and Plan, Note Completion Last Updated: 30-Sep-2021 11:18 by Lex Frederick) [facility] Rehab Amex-fo-snfzeemzh - co -tx /c OT to address multidiscipon 09-30-2021 Rehab Gynv-hg-biefkzhmf - co-tx /c OT to address multidiscip Rehab: Info: Disciplinephysical occupational therapy co director Mode of Treatmentphysical therapy; co-treatment; co-tx /c OT to address multidisciplinary functional needs and maximize pt's safety. Time IN12:15 Time OUT12:55 Total Treatment [id number] Patient in ... at end of sessionbed, 3 railings up; alarm off; not on at start of visit Communicated with ... at end of sessionbedside nurse Patient Effortgood Symptoms Noted During/After Treatmentfatigue Treatment Considerations/CommentsExte nsive discussion /c amongst MEDICAL AUDITOR, OT, and pt regarding her current physical [...] rolling right; rolling left; scooting/bridging Roll Left [place] (Bed Mobility)moderate assist (50% patient effort); 1 person assist; nonverbal cues (demo/gesture); verbal cues Roll Right [place] (Bed Mobility)moderate assist (50% patient effort); 1 person assist; nonverbal cues (demo/gesture); verbal cues Scoot/Bridge [place] (Bed Mobility)maximum assist (25% patient effort); 2 person assist; nonverbal cues (demo/gesture); verbal cues Lewkcu-mc-Dch [place] (Bed Mobility)maximum assist (25% patient effort); 2 person assist; nonverbal cues (demo/gesture); verbal cues Kkq-by-Egaqwi [place] (Bed Mobility)maximum assist (25% patient effort); 2 person assist; nonverbal cues (demo/gesture); verbal cues Assistive Device (Bed Mobility)bed rails; draw sheet Comment, Bed MobilityPt showing improvement in her ability to roll, performing 50% of AROM to achieve full rolling position. Transfer Assessment/Interventionssit to stand transfer; stand to sit transfer Comment, TransfersToday's session, OT and I utilized Reachpod - [employer] Bilisim Stand device to assist pt into full [...] Pt repositioned back to sitting EOB. Sit-Stand [place] (Transfers)dependent (less than 25% patient effort) Sit-Stand Assistive Device (Transfers)mechanical lift/aid Stand-Sit [place] (Transfers)dependent (less than 25% patient effort) Stand-Sit [...] Score8 Short Term Goals: Bed Mobility: Date [id number] Bed Mobility: [place] Level Goalminimum assist (75% patients effort) Bed Mobility: Physical Assist Level Goal1-person assist, verbal cues Bed Mobility: Time Frame for Goal2 wks Transfer: Established [id number] Transfer: Transfer Type Mpocpxq-nf-rmnwl/chair-to-b ed; sml-ma-nhrkn/stsws-uu-uss Transfer: [place] Level Goalmoderate assist (50% patients effort) Transfer: Physical Assist Level Goal1-person assist; verbal cues Transfer: Assistive Device Goalrolling walker Transfer: Time Frame for Goal2 wks Gait: Established Gait: [place] Level Goalmoderate assist (50% patients (more content not included)... [facility] Rehab Note-occupational health professional apy - co-tx with PT to maximizeon 09-30-2021 Rehab Note-occupational therapy - co-tx with PT to maximize Rehab: Info: Disciplineoccupational therapist Mode of Treatmentoccupational therapy; co-tx with PT to maximize pt's mobility and safety. Time IN12:15 Time OUT12:55 Total Treatment [id number] Patient in ... at end of sessionbed, [...] ling right; rolling left; scooting/bridging Roll Left [place] (Bed Mobility)moderate assist (50% patient effort); 1 person assist; nonverbal cues (demo/gesture); verbal cues Roll Right [place] (Bed Mobility)moderate assist (50% patient effort); 1 person assist; nonverbal cues (demo/gesture); verbal cues Scoot/Bridge [place] (Bed Mobility)maximum assist (25% patient effort); 2 [...] lower body dressing; upper body dressing; bathing [place] Level (Bathing)set up; verbal cues; moderate assist (50% patient effort); 1 person assist Comment (Bathing)anticipated due to impaired balance, strength, and pain. [place] Level (Upper Body Dressing)set up; verbal cues; moderate assist (50% patient effort) Comment (Upper Body Dressing)anticipated due to impaired balance, strength, and pain. [place] Level (Lower Body Dressing)don; socks; dependent (less than 25% patient effort) Position (Lower Body Dressing)supine [place] Level (Grooming)modified independence Comment (Grooming)Pt observed applying Orajel to gums, able to manage packaging, cap un/screwing, and application. [place] Level (Feeding)modified independence Comment (Feeding)Pt able to retrieve OJ cup from tray table at R side, bring to mouth, and drink appropriately. [place] Level (Toileting)dependent (less than 25% patient effort); [...] Score15 Short Term Goals: Bed Mobility: Date [id number] Bed Mobility: [place] Level Goalcontact guard Bed Mobility: Physical Assist Level Goalset-up, verbal cues Bed Mobility: Time Frame for Goal2 wks Transfer: Established [id number] Transfer: Transfer Type Dbohsan-yb-itszx/chair-to-b ed; fpg-fs-ofzaz/pxtcd-zx-zrw; toilet Transfer: [place] Level Goalminimum assist (75% patients effort) Transfer: Physical Assist Level Goalset-up; verbal cues; 1-person assist Transfer: Assistive Device GoalLRD Transfer: Time Frame for Goal2 wks Balance: Established [id number] Balance: Goal DetailsPt will perform ADL while reaching outside MADDIE and returning self to midline >8 minutes with set-up assist, SBA, and minimal verbal cues for safety. Enrique (more content not included)... [facility] Daily Progress Note-Nuha stearns 09-29-2021 Daily Progress Note-Neurosurgery Service: Neurosurgery Subjective Data: MORALES LEE is a 46 year old Female who is Hospital Day # 14 and POD #7 for posterior L4-L5 decompression;posterior L4-L5 arthrodesis. Objective Data: Objective Information: T PRBPSpO2 [id number]/[id number]% Date/Time09/28 4: 8: 8: 8: 8:00 Range(36C [...] 2021 6:00 am000 Sep 27, 2021 10:00 [id number] Sep 27, 2021 2:00 [id number] The Intake and Output Totals for the last 24 hours are: IntakeOutputNet [id number] Physical Exam by System: Neurological: A&Ox3 RUE [...] the note. I personally evaluated the patient [id number] Electronic Signatures: Lex Frederick) (Signed 29-Sep-2021 09:23) Authored: Note Completion Co-Signer: Service, Subjective Data, Objective Data, Assessment and Plan, Note Completion Jaya Mosquera (Resident)) (Signed 29-Sep-2021 03:01) Authored: Service, Subjective Data, Objective Data, Assessment and Plan, Note Completion Last Updated: 29-Sep-2021 09:23 by Lex Frederick) [facility] Rehab Dtjh-uf-xhxxexcwv - co -tx /c OT to address multidiscipon 09-29-2021 Rehab Mmau-ew-trkbblisa - co-tx /c OT to address multidiscip Rehab: Info: Disciplinephysical occupational therapy co director Mode of Treatmentphysical therapy; co-treatment; co-tx /c OT to address multidisciplinary functional needs and maximize pt's safety. Time IN14:30 Time OUT15:40 Total Treatment [id number] Patient in ... at end of sessionbed, [...] to sit; sit to supine Roll Left [place] (Bed Mobility)maximum assist (25% patient effort); 2 person assist; verbal cues; nonverbal cues (demo/gesture) Roll Right [place] (Bed Mobility)maximum assist (25% patient effort); 2 person assist; verbal cues; nonverbal cues (demo/gesture) Scoot/Bridge [place] (Bed Mobility)maximum assist (25% patient effort); 2 person assist; nonverbal cues (demo/gesture); verbal cues Anrdpv-ki-Nvh [place] (Bed Mobility)maximum assist (25% patient effort); 2 person assist; nonverbal cues (demo/gesture); verbal cues Noo-ew-Rrfjvf [place] (Bed Mobility)verbal cues; nonverbal cues (demo/gesture); maximum [...] Pt repositioned back to sitting EOB. Sit-Stand [place] (Transfers)dependent (less than 25% patient effort) Sit-Stand Assistive Device (Transfers)mechanical lift/aid Stand-Sit [place] (Transfers)dependent (less than 25% patient effort) Stand-Sit [...] Score8 Short Term Goals: Bed Mobility: Date [id number] Bed Mobility: [place] Level Goalminimum assist (75% patients effort) Bed Mobility: Physical Assist Level Goal1-person assist, verbal cues Bed Mobility: Time Frame for Goal2 wks Transfer: Established Transfer: Transfer Type Mplqvej-aa-ubayf/chair-to-b ed; kgh-wd-uxfsu/umovz-gx-sxo Transfer: [place] Level Goalmoderate assist (50% patients effort) Transfer: Physical Assist Level Goal1-person assist; verbal cues Transfer: Assistive Device Goalrolling walker Transfer: Time Frame for Goal2 wks Gait: Established Gait: [place] Level Goalmoderate assist (50% patients effort) Gait: [...] fair Outcome (more content not included)... [facility] Rehab Note-occupational health professional apy - co-tx with PT to maximizeon 09-29-2021 Rehab Note-occupational therapy - co-tx with PT to maximize Rehab: Info: Disciplineoccupational therapist Mode of Treatmentoccupational therapy; co-tx with PT to maximize pt's mobility and safety. Time IN14:30 Time OUT15:40 Total Treatment [id number] Patient in ... at end of sessionbed, [...] to sit; sit to supine Roll Left [place] (Bed Mobility)maximum assist (25% patient effort); 2 person assist; verbal cues; nonverbal cues (demo/gesture); multiple rolls to adjust harness Roll Right [place] (Bed Mobility)maximum assist (25% patient effort); 2 person assist; verbal cues; nonverbal cues (demo/gesture); multiple rolls to adjust harness Scoot/Bridge [place] (Bed Mobility)maximum assist (25% patient effort); 2 person assist; nonverbal cues (demo/gesture); verbal cues; boost HOB Axauyl-lr-Ttb [place] (Bed Mobility)maximum assist (25% patient effort); 2 person assist; nonverbal cues (demo/gesture); verbal cues Ojo-tb-Xofhxa [place] (Bed Mobility)verbal cues; nonverbal cues (demo/gesture); maximum assist (25% patient effort); 2 person assist Assistive Device (Bed Mobility)draw sheet; bed rails Transfer Assessment/Interventionssit to stand transfer; stand to sit transfer Sit-Stand [place] (Transfers)dependent (less than 25% patient effort) Sit-Stand Assistive Device (Transfers)mechanical lift/aid; Faye Plus Stand-Sit [place] (Transfers)dependent (less than 25% patient effort) Stand-Sit Assistive Device (Transfers)mechanical lift/aid; Faye Plus Safety Issues Impacting Function (Mobility)awareness of need for assistance; insight into deficits/self awareness Impairments Impacting Function (Mobility)endurance/activit y tolerance; strength; balance; coordination; postural/trunk control ADL: BADL Assessment/Interventiontoil eting; feeding; grooming; lower body dressing; upper body dressing; bathing [place] Level (Bathing)set up; verbal cues; moderate assist (50% patient effort); 1 person assist Comment (Bathing)anticipated due to impaired balance, strength, and pain. [place] Level (Upper Body Dressing)set up; verbal cues; moderate assist (50% patient effort) Comment (Upper Body Dressing)anticipated due to impaired balance, strength, and pain. [place] Level (Lower Body Dressing)don; socks; dependent (less than 25% patient effort) Position (Lower Body Dressing)supine [place] Level (Grooming)set up; contact guard Comment (Grooming)anticipated due to impaired balance, strength, and pain. [place] Level (Feeding)set up; modified independence Comment (Feeding)anticipated [place] Level (Toileting)dependent (less than 25% patient effort); purewick Impairments, BADL Safety/Performancebalance; cognition; endurance/activity tolerance; strength; trunk/postural control Cognitive Impairments, BADL Safety/Performanceawareness , need for assistance; insight into deficits/self awareness; judgment; problem solving/reasoning Motor: Sitting, Static (Balance)good balance SBA Sitting, Dynamic (Balance)fair balance CGA Gzk-im-Wwssm (Balance)poor balance Total A via Faye Plus lift Standing, Static (Balance)poor balance Max A x1 - via Faye Plus Standing, Dynamic (Balance)unable to balance Balance ActivitiesPt sat EOB ~20 minutes throughout session primarily with SB (more content not included)... [facility] Clinical Event Note-Medical Assessmenton 09-28-2021 Clinical [...] oil enema alternating with tap water enema [id number] - Bisacodyl suppository QHS Daily - Monitor [...] for wound check 10/07/21 at 10:15 am, [facility] 5th floor - F/U with Dr. [...] note 45 minutes; Electronic Signatures: Concetta Shi ([employer]CROS[employer] DYNAMICS CONSULTANT-FINAL INSPECTOR MOVEMENT ASSEMBLY) (Signed 28-Sep-2021 14:31) Authored: Clinical Event Note Last Updated: 28-Sep-2021 14:31 by Concetta Shi ([employer] DYNAMICS CONSULTANT-FINAL INSPECTOR MOVEMENT ASSEMBLY) [facility] Daily Progress Note-Gastroen terologyon 09-28-2021 Daily Progress Note-Gastroenterolog y Service: Gastroenterology Subjective Data: MORALES LEE is a 46 year old Female who is Hospital Day # 14 and POD #7 for posterior L4-L5 decompression;posterior L4-L5 arthrodesis. No events overnight. Had one bowel movement this am. Otherwise no complaints. Objective Data: Objective Information: T PRBPSpO2 [id number]/6993% Date/Time09/28 4: 8: 8: 8: 8:00 Range(36C - 36.6C ) (73 - 87 ) (15 - 22 ) (92 - 136 )/ (48 - 74 ) (92% - 99% ) As of 28-Sep-2021 08:00:00, patient is on 2 L/min of oxygen via nasal cannula. Pain reported at 09/27 22:00: 0 = None ---- Intake and Output ----- Mn[facility] Sep 28, 2021 6:00 am000 Sep 27, 2021 10:00 [id number] Sep 27, 2021 2:00 [id number] The Intake and Output Totals for the last 24 hours are: IntakeOutputNet [id number] Physical Exam by System: Constitutional: Constitutional: A&Ox3, [...] recommend tr (more content not included)... [facility] Daily Progress Note-Nuha stearns 09-28-2021 Daily Progress Note-Neurosurgery Service: Neurosurgery Subjective Data: MORALES LEE is a 46 year old Female who is Hospital Day # 14 and POD #7 for posterior L4-L5 decompression;posterior L4-L5 arthrodesis. Objective Data: Objective Information: T PRBPSpO2 [id number]/4893% Date/Time09/28 4: 4: 4: 4:001 4:00 Range(36C - 36.6C ) (72 - 87 ) (15 - 22 ) (92 - 153 )/ (48 - 113 ) (92% - 99% ) As of 27-Sep-2021 22:00:00, patient is on 2 L/min of oxygen via nasal cannula. Pain reported at 09/27 22:00: 0 = None ---- Intake and Output ----- Mn/Dy/Year TimeIntakeOutputNet Sep 26, 2021 10:00 [id number] Sep 26, 2021 2:00 [id number] The Intake and Output Totals for the last 24 hours are: IntakeOutputNet [id number] Physical Exam by System: Neurological: A&Ox3 RUE [...] the note. I personally evaluated the patient [id number] Electronic Signatures: Fidel Maciel (Resident)) (Signed 28-Sep-2021 05:47) Authored: Service, Subjective Data, Objective Data, Assessment and Plan, Note Completion Lex Frederick) (Signed 28-Sep-2021 07:32) Authored: Note Completion Co-Signer: Service, Subjective Data, Objective Data, Assessment and Plan, Note Completion Last Updated: 28-Sep-2021 07:32 by Lex Frederick) [facility] RENAL FUNCTION PANELon 09-28 Albumin [Mass/Vol] 3.1 g/dL Low 3.4 - 5.0 [facility] Comment on above: Performed By: #### R ENAL ####[id number] [place] [address] Anion gap [Moles/Vol] 17 mmol/L Normal 10 - 20 [facility] Comment on above: Performed By: #### R ENAL ####[id number] [place] [address] Calcium [Mass/Vol] 8.4 mg/dL Low 8.6 - 10.6 [facility] Comment on above: Performed By: #### R ENAL ####[id number] [place] [address] Chloride [Moles/Vol] 102 mmol/L Normal 98 - 107 [facility] Comment on above: Performed By: #### R ENAL ####[id number] [place] [address] Creatinine [Mass/Vol] 0.47 mg/dL Low 0.50 - 1.05 [facility] Comment on above: Performed By: #### R ENAL ####[id number] [place] [address] eGFR FEMALE >90 Normal >90 [facility] Comment on above: Result Comment: CALC ULATIONS OF ESTIMATED GFR ARE PERFORMED USING THE 2020 CKD-EPI STUDY REFIT EQUATION WITHOUT THE RACE VARIABLE FOR THE IDMS-TRACEABLE CREATININE METHODS. https://jasn.asnjournals.org/content/early/ASN.2386962 988 Performed By: #### R ENAL ####[id number] [place] [address] Glucose [Mass/Vol] 74 mg/dL Normal 74 - 99 [facility] Comment on above: Performed By: #### R ENAL ####[id number] [place] [address] HCO3 (Bld) [Moles/Vol] 27 mmol/L Normal 21 - 32 [facility] Comment on above: Performed By: #### R ENAL ####[id number] [place] [address] Phosphate [Mass/Vol] 3.4 mg/dL Normal 2.5 - 4.9 [facility] Comment on above: Result Comment: The performance characteristics of phosphorus testing in heparinized plasma have been validated by the individual laboratory site where testing is performed. Testing on heparinized plasma is not approved by the FDA; however, such approval is not necessary. Performed By: #### R ENAL ####[id number] [place] [address] Potassium [Moles/Vol] 3.7 mmol/L Normal 3.5 - 5.3 [facility] Comment on above: Performed By: #### R ENAL ####[id number] [place] [address] Sodium [Moles/Vol] 142 mmol/L Normal 136 - 145 [facility] Comment on above: Performed By: #### R ENAL ####[id number] [place] [address] Urea nitrogen [Mass/Vol] 6 mg/dL Normal 6 - 23 [facility] Comment on above: Performed By: #### R ENAL ####[id number] [place] [address] Radiologyon 09-28-2021 XR Abdomen AP Normal [facility]-Gastroen terology-[facility] Work Phone: Rehab Note-attemptedon 09-28 Rehab Note-attempted Rehab: Info: Disciplinephysical occupational therapy co director Mode of Treatmentattempted Time IN15:30 Reason Treatment Not Performedpatient/family declined treatment, not feeling well Treatment Considerations/CommentsPt declined therapy at this time 2* increased fatigue, nausea. Pt stated NO! NO! NO! upon therapists arrival, even /c increased encouragement. Will reattempt as schedule allows. Short Term Goals: Bed Mobility: Date [id number] Bed Mobility: [place] Level Goalminimum assist (75% patients effort) Bed Mobility: Physical Assist Level Goal1-person assist, verbal cues Bed Mobility: Time Frame for Goal2 wks Transfer: Established [id number] Transfer: Transfer Type Cuonjms-hp-vdlfw/chair-to-b ed; yxf-vb-vzelf/yslvf-de-uga Transfer: [place] Level Goalmoderate assist (50% patients effort) Transfer: Physical Assist Level Goal1-person assist; verbal cues Transfer: Assistive Device Goalrolling walker Transfer: Time Frame for Goal2 wks Gait: Established Gait: [place] Level Goalmoderate assist (50% patients effort) Gait: Physical Assist Level1-person assist; verbal cues Gait: Assistive Device Goalrolling walker Gait: Distance Goal15 feet Gait: Time Frame for Goal2 wks Balance: Established [id number] Balance: Goal DetailsSitting EOB 20 minutes with 0-1 UE support, SBA for static sitting, CGA for dynamic. Standing 1 minute with FWW and CGA Electronic Signatures: Yosi Campbell (MEDICAL AUDITOR) (Signed 28-Sep-2021 15:32) Entered: Short Term Goals, Info Authored: Info, Short Term Goals Boone Broussard (PT) (Signed 01-Oct-2021 09:01) Co-Signer: Short Term Goals, Info Last Updated: 01-Oct-2021 09:01 by Boone Broussard (PT) [facility] Rehab Note-attempted Rehab: Info: Mode of [...] 28-Sep-2021 15:28 by Silvana Marshall (OT) [facility] Renal Function Panelon 09-28 Albumin BCP [...] lwell [facility] Work Phone: CO2 [Moles/Vol] 27 mmol/L 21 - 32 MG-Gastro en terology-[place] [facility] Work Phone: Creatinine [Mass/Vol] 0.47 mg/dL below low threshold See Below [facility]-Gastroen terology-[place] [facility] Work Phone: Comment on above: Reference Range: 0.5 0 - 1.05 Glucose [Mass/Vol] 74 mg/dL 74 - 99 MG-Gas troen terology-[place] [facility] Work Phone: Phosphate [Mass/Vol] 3.4 mg/dL 2.5 [...] RACE VARIABLE FOR THE IDMS-TRACEABLE CREATININE METHODS.https://jasn.asnjournals.org/content/early//ASN .6744898095 ABDOMEN AP VIEWon 022 ABDOMEN AP VIEW Patient Name: MORALES LEE STUDY: ABDOMEN AP VIEW; 09/28/2021 1:22 pm INDICATION: Abd. dist. . COMPARISON: 09/27/2021 abdominal radiograph. ACCESSION NUMBER(S): [id number] ORDERING CLINICIAN: CONCETTA SHI FINDINGS: Two AP [...] as stated. This study was interpreted at [facility], [place], [place]. Electronically signed by: TANIKA SUTTON MD [facility] Consult-Gastroenterologyon 0 09-27-2021 Consult-Gastroentero logy Service: [...] admission for post-op pain including a dilaudid MANAGER PAID. Has been on scheduled bowel regimen with [...] penicillin: Unknown Objective: Objective Information: T PRBPSpO2 [id number]/[id number]% Date/Time1/23 4: 4: 4: 4:00 Range (76 - [...] C6-7 ACDFF, (more content not included)... [facility] Daily Progress Note-Nuha stearns 09-27-2021 Daily Progress Note-Neurosurgery Service: Neurosurgery Subjective Data: MORALES LEE is a 46 year old Female who is Hospital Day # 13 and POD #6 for posterior L4-L5 decompression;posterior L4-L5 arthrodesis. Objective Data: Objective Information: T PRBPSpO2 [id number]/[id number]% Date/Time09/26 11:081/23 4: 4: 4: 4:00 Range(37C - 37C [...] 2021 6:00 am000 Sep 26, 2021 10:00 [id number] Sep 26, 2021 2:00 [id number] The Intake and Output Totals for the last 24 hours are: IntakeOutputNet [id number] Physical Exam by System: Neurological: A&Ox3 RUE [...] the note. I personally evaluated the patient [id number] Electronic Signatures: Chaparro Umana (Resident)) (Signed 27-Sep-2021 06:11) Authored: Service, Subjective Data, Objective Data, Assessment and Plan, Note Completion Natalia Palacios) (Signed 08-Oct-2021 14:31) Authored: Note Completion Co-Signer: Service, Subjective Data, Objective Data, Assessment and Plan, Note Completion Last Updated: 08-Oct-2021 14:31 by Natalia Palacios) [facility] MAGNESIUMon 09-27-2021 Magnesium [Mass/Vol] 1.80 mg/dL Normal 1.60 - 2.40 [facility] Comment on above: Performed By: #### C BC #### [facility] [address] [place] [address] Magnesium, Serumon Magnesium [Mass/Vol] 1.80 mg/dL See Below MG-G astroen terology-[facility] 6 [facility] Work Phone: Comment on above: Reference Range: 1.6 0 - 2.40 RENAL FUNCTION PANELon 09-27 Albumin [Mass/Vol] 3.3 g/dL Low 3.4 - 5.0 [facility] Comment on above: Performed By: #### R ENAL #### [facility] [address] [place] [address] Anion gap [Moles/Vol] 17 mmol/L Normal 10 - 20 [facility] Comment on above: Performed By: #### R ENAL #### [facility] [address] [place] [address] Calcium [Mass/Vol] 8.5 mg/dL Low 8.6 - 10.6 [facility] Comment on above: Performed By: #### R ENAL #### [facility] [address] [place] [address] Chloride [Moles/Vol] 98 mmol/L Normal 98 - 107 [facility] Comment on above: Performed By: #### R ENAL #### [facility] [address] [place] [address] Creatinine [Mass/Vol] 0.44 mg/dL Low 0.50 - 1.05 [facility] Comment on above: Performed By: #### R ENAL #### [facility] [address] [place] [address] eGFR FEMALE >90 Normal >90 [facility] Comment on above: Result Comment: CALC ULATIONS OF ESTIMATED GFR ARE PERFORMED USING THE 2020 CKD-EPI STUDY REFIT EQUATION WITHOUT THE RACE VARIABLE FOR THE IDMS-TRACEABLE CREATININE METHODS. https://jasn.asnjournals.org/content/early/ASN.8857469 988 Performed By: #### R ENAL #### [facility] [address] [place] [address] Glucose [Mass/Vol] 91 mg/dL Normal 74 - 99 [facility] Comment on above: Performed By: #### R ENAL #### [facility] [address] [place] [address] HCO3 (Bld) [Moles/Vol] 26 mmol/L Normal 21 - 32 [facility] Comment on above: Performed By: #### R ENAL #### [place] [address] [place] [address] Phosphate [Mass/Vol] 4.0 mg/dL Normal 2.5 - 4.9 [facility] Comment on above: Result Comment: The performance characteristics of phosphorus testing in heparinized plasma have been validated by the individual laboratory site where testing is performed. Testing on heparinized plasma is not approved by the FDA; however, such approval is not necessary. Performed By: #### R ENAL #### [facility] [address] [place] [address] Potassium [Moles/Vol] 4.1 mmol/L Normal 3.5 - 5.3 [facility] Comment on above: Performed By: #### R ENAL #### [facility] [address] [place] [address] Sodium [Moles/Vol] 137 mmol/L Normal 136 - 145 [facility] Comment on above: Performed By: #### R ENAL #### [facility] [address] [place] [address] Urea nitrogen [Mass/Vol] 6 mg/dL Normal 6 - 23 [facility] Comment on above: Performed By: #### R ENAL #### [facility] [address] [place] [address] Radiologyon 09-27-2021 XR Abdomen AP Normal MG-Gastroen [...] - 99 MG-Gas troen terology-[place] 6 [facility] Work Phone: Phosphate [Mass/Vol] 4.0 mg/dL 2.5 - 4.9 MG-G astroen terology-[place] 6 [facility] Work Phone: Comment on above: The performance arsalan acteristics of phosphorus testing in heparinized plasma have been validated by the individual laboratory site where testing is performed. Testing on heparinized plasma is not approved by the FDA; however, such approval is not necessary. Potassium [Moles/Vol] 4.1 mmol/L 3.5 - 5.3 MG-Gastroen terology-[place] 6 [facility] Work Phone: Sodium [Moles/Vol] 137 mmol/L 136 - 145 MG-Gas troen terology-[place] 6 [facility] Work Phone: Urea nitrogen [Mass/Vol] 6 mg/dL 6 - 23 MG-Gastroen terology-[place] 6 [facility] Work Phone: Renal Function Panel >90 >90 MG-G astroen terology-[place] 6 [facility] Work Phone: Comment on above: CALCULATIONS OF IVY MATED GFR ARE PERFORMED USING THE 2020 CKD-EPI STUDY REFIT EQUATION WITHOUT THE RACE VARIABLE FOR THE IDMS-TRACEABLE CREATININE METHODS.https://jasn.asnjournals.org/content//ASN .3696503641 ABDOMEN AP VIEWon 022 ABDOMEN AP VIEW Patient Name: MORALES LEE STUDY: ABDOMEN AP VIEW; 09/27/2021 2:33 am INDICATION: vomiting, constipation . COMPARISON: None. ACCESSION NUMBER(S): [id number] ORDERING CLINICIAN: FIDEL MACIEL FINDINGS: 2 AP [...] as stated. This study was interpreted at [facility], [place], [place]. Electronically signed by: DWIGHT MOY MD [facility] Daily Progress Note-Neurosjudy leonidasgaurang 09-26-2021 Daily Progress Note-Neurosurgery Service: Neurosurgery Subjective Data: MORALES LEE is a 46 year old Female who is Hospital Day # 12 and POD #5 for posterior L4-L5 decompression;posterior L4-L5 arthrodesis. Objective Data: Objective Information: T PRBPSpO2 [id number]/8299% Date/Time09/25 17: 12:001 17: 17:08 Range (68 - 98 ) (21 - 23 ) (118 - 136 )/ (69 - 82 ) (92% - 99% ) Pain reported at 09/26 3:00: sleeping ---- Intake and Output ----- Mn/Dy/Year TimeIntakeOutputNet Sep 24, 2021 10:00 [id number] Sep 24, 2021 2:00 [id number] Sep 24, 2021 6:00 [id number] The Intake and Output Totals for the last 24 hours are: IntakeOutputNet [id number] Physical Exam by System: Neurological: A&Ox3 RUE [...] the note. I personally evaluated the patient [id number] Electronic Signatures: Jaya Mosquera (Resident)) (Signed 26-Sep-2021 07:08) Authored: Service, Subjective Data, Objective Data, Assessment and Plan, Note Completion Natalia Palacios) (Signed 08-Oct-2021 14:10) Authored: Note Completion Co-Signer: Service, Subjective Data, Objective Data, Assessment and Plan, Note Completion Last Updated: 08-Oct-2021 14:10 by Natalia Palacios) [facility] Clinical Event Note-POD 4 / Abdominal [...] for wound check 10/07/21 at 10:15 am, [facility] 5th floor - F/U with Dr. Frederick 11/03/21 at 1400, [place] - Patient fitted for PRAFO boots by [...] plan of care. Electronic Signatures: Concetta Shi (MICROS[employer]FT DYNAMICS CONSULTANT-FINAL INSPECTOR MOVEMENT ASSEMBLY) (Signed 25-Sep-2021 13:30) Authored: Clinical Event Note Last Updated: 25-Sep-2021 13:30 by Concetta Shi ([employer]OS[employer] DYNAMICS CONSULTANT-FINAL INSPECTOR MOVEMENT ASSEMBLY) [facility] Daily Progress Note-Nuha stearns 09-25-2021 Daily Progress Note-Neurosurgery Service: Neurosurgery Subjective Data: MORALES LEE is a 46 year old Female who is Hospital Day # 11 and POD #4 for posterior L4-L5 decompression;posterior L4-L5 arthrodesis. Objective Data: Objective Information: T PRBPSpO2 [id number]/6799% Date/Time09/24 16: 16: 16: 16:00 Range (68 - 78 ) (18 - 19 ) (102 - 117 )/ (57 - 73 ) (95% - 99% ) As of 24-Sep-2021 21:40:00, patient is on 2 L/min of oxygen via nasal cannula. Pain reported at 09/24 21:40: 8 = Severe ---- Intake and Output ----- Mn/Dy/Year TimeIntakeOutputNet Sep 23, 2021 10:00 [id number] Sep 23, 2021 6:00 [id number] The Intake and Output Totals for the last 24 hours are: IntakeOutputNet [id number] Physical Exam by System: Neurological: A&Ox3 RUE [...] the note. I personally evaluated the patient [id number] Electronic Signatures: Lex Frederick) (Signed 25-Sep-2021 11:57) Authored: Note Completion Co-Signer: Service, Subjective Data, Objective Data, Assessment and Plan, Note Completion Alfredo Hendrickson (Resident)) (Signed 25-Sep-2021 05:56) Authored: Service, Subjective Data, Objective Data, Assessment and Plan, Note Completion Last Updated: 25-Sep-2021 11:57 by Lex Frederick) [facility] Rehab Rvjg-mk-rgnmznzzh - co -tx /c OT to address multidiscipon 09-25-2021 Rehab Xaca-yd-ahgcxlgat - co-tx /c OT to address multidiscip Rehab: Info: Disciplinephysical occupational therapy co director Mode of Treatmentphysical therapy; co-treatment; co-tx /c OT to address multidisciplinary functional needs and maximize pt's safety. Time IN15:05 Time OUT15:59 Total Treatment [id number] Patient in ... at end of sessionbed, [...] scooting/bridging; rolling right; rolling left Roll Left [place] (Bed Mobility)maximum assist (25% patient effort); 2 person assist; verbal cues; nonverbal cues (demo/gesture) Roll Right [place] (Bed Mobility)maximum assist (25% patient effort); 2 person assist; verbal cues; nonverbal cues (demo/gesture) Scoot/Bridge [place] (Bed Mobility)maximum assist (25% patient effort); 2 person assist; nonverbal cues (demo/gesture); verbal cues Lsuzii-fu-Bpo [place] (Bed Mobility)maximum assist (25% patient effort); 2 person assist; verbal cues; nonverbal cues (demo/gesture) Puo-xh-Hdsuwu [place] (Bed Mobility)maximum assist (25% patient effort); 2 [...] unable to get to full standing. Sit-Stand [place] (Transfers)maximum assist (25% patient effort); verbal cues; nonverbal cues (demo/gesture); 2-3 persona assist Sit-Stand Assistive Device (Transfers)walker, front-wheeled Stand-Sit [place] (Transfers)maximum assist (25% patient effort); nonverbal cues [...] Score8 Short Term Goals: Bed Mobility: Date [id number] Bed Mobility: [place] Level Goalminimum assist (75% patients effort) Bed Mobility: Physical Assist Level Goal1-person assist, verbal cues Bed Mobility: Time Frame for Goal2 wks Transfer: Established Transfer: Transfer Type Wwclcsi-ig-gagzj/chair-to-b ed; uhv-jt-xjxhj/fhvmk-dr-mbz Transfer: [place] Level Goalmoderate assist (50% patients effort) Transfer: Physical Assist Level Goal1-person assist; verbal cues Transfer: Assistive Device Goalrolling walker Transfer: Time Frame for Goal2 wks Gait: Established Gait: [place] Level Goalmoderate assist (50% patients effort) Gait: [...] goals is gradual Electronic Signatures: Yosi Campbell (MEDICAL AUDITOR) (Signed 25-Sep-2021 16:59) Entered: Outcome Summary, Short Term Goals, Sensory, TherEx, Outcomes Tools, Info, Mobility/Tone Authored: Short Term Goals, Outcome Summary, TherEx, Outcomes Tools, Info, Mobility/Tone, Sensory Boone Broussard (PT) (Signed 01-Oct-2021 09:01) Co-Signer: Outcome Summary, Short Term Goals, Sensory, TherEx (more content not included)... Normal [facility] Rehab Note-occupational health professional apy - Partial co-tx with PT to tue09-25-2021 Rehab Note-occupational therapy - Partial co-tx with PT to Rehab: Info: Disciplineoccupational therapist Mode of Treatmentoccupational therapy; Partial co-tx with PT to maximize pt's mobility and safety. Time IN15:03 Time OUT15:56 Total Treatment [id number] Patient in ... at end of sessionbed, [...] sit to supine; rolling right Roll Left [place] (Bed Mobility)Pt required assist to bend BLE at knees and to initiate turn at shoulders and hips, verbal cues for grasp on bed rail, technique, direction follow, and encouragement.; set up; verbal cues; maximum assist (25% patient effort); 2 person assist Roll Right [place] (Bed Mobility)Pt required assist to bend BLE at knees and to initiate turn at shoulders and hips, verbal cues for grasp on bed rail, technique, direction follow, and encouragement.; set up; verbal cues; maximum assist (25% patient effort); 2 person assist Scoot/Bridge [place] (Bed Mobility)boost HOB; set up; verbal cues; maximum assist (25% patient effort); 2 person assist Hzkjai-if-Ngt [place] (Bed Mobility)HOB elevated; set up; verbal cues; maximum assist (25% patient effort); 2 person assist Lnx-jp-Ufdvfz [place] (Bed Mobility)HOB elevated; set up; verbal cues; maximum assist (25% patient effort); 2 person assist Assistive Device (Bed Mobility)bed rails; draw sheet Transfer Assessment/Interventionssit to stand transfer Sit-Stand [place] (Transfers)set up; verbal cues; maximum assist (25% patient effort); x 2-3 assist Safety Issues Impacting Function (Mobility)ability to follow commands; awareness of need for assistance; insight into deficits/self awareness; judgment; problem solving Impairments Impacting Function (Mobility)balance; cognition; endurance/activity tolerance; pain; strength; postural/trunk control ADL: BADL Assessment/Interventiontoil eting; feeding; grooming; lower body dressing; upper body dressing; bathing [place] Level (Bathing)set up; verbal cues; moderate assist (50% patient effort); 1 person assist Comment (Bathing)anticipated due to impaired balance, strength, and pain. [place] Level (Upper Body Dressing)set up; verbal cues; moderate assist (50% patient effort) Comment (Upper Body Dressing)anticipated due to impaired balance, strength, and pain. [place] Level (Lower Body Dressing)don; socks; dependent (less than 25% patient effort) Position (Lower Body Dressing)supine [place] Level (Grooming)set up; contact guard Comment (Grooming)anticipated due to impaired balance, strength, and pain. [place] Level (Feeding)set up; modified independence Comment (Feeding)anticipated [place] Level (Toileting)dependent (less than 25% patient effort); purewick Impairments, BADL Safety/Performancebalance; cognition; endurance/activity tolerance; strength; trunk/postural control Cognitive Impairments, BADL Safety/Performanceawareness , need for assistance; insight into deficits/self awareness; judgment; problem solving/reasoning Motor: Sitting, Static (Balance)good balance SBA Sitting, Dynamic (Balance)fair balance CGA Ver-if-Ylntb (Balance)poor balance Max A x 2-3 - attempted Standing, Static (Balance)unable to balance Standing, Dynamic (Balance)unable to balance Balance ActivitiesPt sat EOB ~30 minutes with SBA/CGA for safety. Pt demonstrated good sitting balance and trunk control. Pt attempted STS transfers 3x with (more content not included)... Normal [facility] Daily Progress Note-Neurosur leonidasgaurang 09-24-2021 Daily Progress Note-Neurosurgery Service: Neurosurgery Subjective Data: MORALES LEE is a 46 year old Female who is Hospital Day # 10 and POD #3 for posterior L4-L5 decompression;posterior L4-L5 arthrodesis. Objective Data: Objective Information: T PRBPSpO2 [id number]% Date/Time09/23 20:4809/23 20:4809/23 20:4809/23 20:4809/23 20:48 Range(35.5C - 36.1C ) (66 - 75 ) (16 - 19 ) (90 - 118 )/ (54 - 75 ) (98% - 99% ) As of 23-Sep-2021 22:43:00, patient is on 2 L/min of oxygen via nasal cannula. ---- Intake and Output ----- Mn/Dy/[facility]Int[facility]Output[facility] Sep 22, 2021 10:00 [id number] Sep 22, 2021 2:00 [id number] Sep 22, 2021 6:00 [id number] The Intake and Output Totals for the last 24 hours are: IntakeOutputNet [id number] Physical Exam by System: Neurological: A&Ox3 RUE [...] the note. I personally evaluated the patient [id number] Comments/ Additional Findings Doing well. Kyphotic posture and Back Pain from instability and traumatic chance fracture significantly improved as compared to preop. She developed weakness involving ankle PF/DF following taoist of alignment from buckling of hypertrophic ligamentum [...] for ambulation and PT for now and terminal computer operator if the weakness fails to improve [...] to the (more content not included)... Normal [facility] MAGNESIUMon 09-24-2021 Magnesium [Mass/Vol] 1.71 mg/dL Normal 1.60 - 2.40 [facility] Comment on above: Performed By: #### A FPA3 #### [facility] [id number] [place] [address] Magnesium, Serumon Magnesium [Mass/Vol] 1.71 mg/dL See Below MG-G tiffany carcamo-Rosendo moura 6 [facility] Work Phone: Comment on above: Reference Range: 1.6 0 - 2.40 RENAL FUNCTION PANELon 09-24 Albumin [Mass/Vol] 2.6 g/dL Low 3.4 - 5.0 [facility] Comment on above: Performed By: #### R ENAL ####[id number] [place] [address] Anion gap [Moles/Vol] 10 mmol/L Normal 10 - 20 [facility] Comment on above: Performed By: #### R ENAL ####[id number] [place] [address] Calcium [Mass/Vol] 7.7 mg/dL Low 8.6 - 10.6 [facility] Comment on above: Performed By: #### R ENAL ####[id number] [place] [address] Chloride [Moles/Vol] 108 mmol/L High 98 - 107 [facility] Comment on above: Performed By: #### R ENAL ####[id number] [place] [address] Creatinine [Mass/Vol] 0.39 mg/dL Low 0.50 - 1.05 [facility] Comment on above: Performed By: #### R ENAL ####[id number] [place] [address] eGFR FEMALE >90 Normal >90 [facility] Comment on above: Result Comment: CALC ULATIONS OF ESTIMATED GFR ARE PERFORMED USING THE 2020 CKD-EPI STUDY REFIT EQUATION WITHOUT THE RACE VARIABLE FOR THE IDMS-TRACEABLE CREATININE METHODS. https://jasn.asnjournals.org/content/early/ASN.1532106 988 Performed By: #### R ENAL ####[id number] [place] [address] Glucose [Mass/Vol] 92 mg/dL Normal 74 - 99 [facility] Comment on above: Performed By: #### R ENAL ####[id number] [place] [address] HCO3 (Bld) [Moles/Vol] 29 mmol/L Normal 21 - 32 [facility] Comment on above: Performed By: #### R ENAL ####[id number] [place] [address] Phosphate [Mass/Vol] 3.3 mg/dL Normal 2.5 - 4.9 [facility] Comment on above: Result Comment: The performance characteristics of phosphorus testing in heparinized plasma have been validated by the individual laboratory site where testing is performed. Testing on heparinized plasma is not approved by the FDA; however, such approval is not necessary. Performed By: #### R ENAL ####[id number] [place] [address] Potassium [Moles/Vol] 3.9 mmol/L Normal 3.5 - 5.3 [facility] Comment on above: Performed By: #### R ENAL ####[id number] [place] [address] Sodium [Moles/Vol] 143 mmol/L Normal 136 - 145 [facility] Comment on above: Performed By: #### R ENAL ####[id number] [place] [address] Urea nitrogen [Mass/Vol] 5 mg/dL Low 6 - 23 [facility] Comment on above: Performed By: #### R ENAL ####[id number] [place] [address] Rehab Note-attemptedon 09-24 Rehab Note-attempted Rehab: Info: Mode of Treatmentattempted Time IN15:00 Reason Treatment Not Performedpatient/family declined treatment; Pt declined participation in OT treatment stating she was on a very important call that she needed to take. Electronic Signatures: Silvana Marshall (OT) (Signed 24-Sep-2021 15:29) Authored: Info Last Updated: 24-Sep-2021 15:29 by Silvana Marshall (OT) Normal [facility] Rehab Note-physical therapyo n 09-24-2021 Rehab [...] 24-Sep-2021 15:07 by Boone Broussard (PT) Normal [facility] Renal Function Panelon 09-24 Albumin BCP [...] lwell 6 [facility] Work Phone: Creatinine [Mass/Vol] 0.39 mg/dL below low threshold See Below MG-Gastroen terology-Rosendo [facility]well 6 [facility] Work Phone: Comment on above: Reference Range: 0.5 0 - 1.05 Glucose [Mass/Vol] 92 mg/dL 74 - 99 MG-Gas troen terology-Rosendo [place] 6 [facility] Work Phone: Phosphate [Mass/Vol] 3.3 mg/dL 2.5 - 4.9 MG-G astroen terology-Rosendo lwell 6 [facility] Work Phone: Comment on above: The performance arsalan acteristics of phosphorus testing in heparinized plasma have been validated by the individual laboratory site where testing is performed. Testing on heparinized plasma is not approved by the FDA; however, such approval is not necessary. Potassium [Moles/Vol] 3.9 mmol/L 3.5 - 5.3 MG-Gastroen terology-Rosendo lwell 6 [facility] Work Phone: Sodium [Moles/Vol] 143 mmol/L 136 - 145 MG-Gas troen terology-Rosendo lwell 6 [facility] Work Phone: Urea nitrogen [Mass/Vol] 5 mg/dL below low threshold 6 - 23 MG-Gastroen terology-Rosendo [place]well 6 [facility] Work Phone: Renal Function Panel >90 >90 MG-G astroen terology-Rosendo [place]well 6 [facility] Work Phone: Comment on above: CALCULATIONS OF IVY MATED GFR ARE PERFORMED USING THE 2020 CKD-EPI STUDY REFIT EQUATION WITHOUT THE RACE VARIABLE FOR THE IDMS-TRACEABLE CREATININE METHODS.https://jasn.asnjournals.org/content//ASN .8452357938 CBCon 09-23-2021 Erythrocyte distribution width (RBC) [Ratio] 13.1 % Normal 11.5 - 14.5 [facility] Comment on above: Performed By: #### C BC ####[id number] [place] [address] Hematocrit (Bld) [Volume fraction] 30.5 % Low 36.0 - 46.0 [facility] Comment on above: Performed By: #### C BC ####[id number] [place] [address] Hemoglobin (Bld) [Mass/Vol] 9.9 g/dL Low 12.0 - 16.0 [facility] Comment on above: Performed By: #### C BC ####[id number] [place] [address] MCHC (RBC) [Mass/Vol] 32.5 g/dL Normal 32.0 - 36.0 [facility] Comment on above: Performed By: #### C BC ####[id number] [place] [address] MCV (RBC) [Entitic vol] 92 fL Normal 80 - 100 [facility] Comment on above: Performed By: #### C BC ####[id number] [place] [address] NUCLEATED RBC 0.0 /100 WBC Normal 0.0-0.0 [facility] Comment on above: Performed By: #### C BC ####[id number] [place] [address] Platelets (Bld) [#/Vol] 244 10*3/uL Normal 150 - 450 [facility] Comment on above: Performed By: #### C BC ####[id number] [place] [address] RBC 3.33 x10E12/L Low 4.00 - 5.20 [facility] Comment on above: Performed By: #### C BC ####[id number] [place] [address] WBC (Bld) [#/Vol] 8.6 10*3/uL Normal 4.4 - 11.3 [facility] Comment on above: Performed By: #### C BC ####[id number] [place] [address] CBC AND DIFFERENTIALon 09-23 % AUTOMATED IMMATURE GRAN 0.4 % Normal 0.0 - 0.9 [facility] Comment on above: Result Comment: Jaleesa ture Granulocyte Count (IG) includes promyelocytes, myelocytes and metamyelocytes but does not include bands. Percent differential counts (%) should be interpreted in the context of the absolute cell counts (cells/L). Performed By: #### C BC #### [facility] [id number] [place] [address] Basophils (Bld) [#/Vol] 0.03 10*3/uL Normal 0.00 - 0.10 [facility] Comment on above: Performed By: #### C BC #### [facility] [address] [place] [address] Basophils/100 WBC (Bld) 0.4 % Normal 0.0 - 2.0 [facility] Comment on above: Performed By: #### C BC #### [facility] [address] [place] [address] Eosinophils (Bld) [#/Vol] 0.27 10*3/uL Normal 0.00 - 0.70 [facility] Comment on above: Performed By: #### C BC #### [facility] [address] [place] [address] Eosinophils/100 WBC (Bld) 3.6 % Normal 0.0 - 6.0 [facility] Comment on above: Performed By: #### C BC #### [facility] [address] [place] [address] Erythrocyte distribution width (RBC) [Ratio] 13.2 % Normal 11.5 - 14.5 [facility] Comment on above: Performed By: #### C BC #### [facility] [address] [place] [address] Hematocrit (Bld) [Volume fraction] 30.9 % Low 36.0 - 46.0 [facility] Comment on above: Performed By: #### C BC #### [facility] [address] [place] [address] Hemoglobin (Bld) [Mass/Vol] 10.4 g/dL Low 12.0 - 16.0 [facility] Comment on above: Performed By: #### C BC #### [facility] [address] [place] [address] Lymphocytes (Bld) [#/Vol] 2.41 10*3/uL Normal 1.20 - 4.80 [facility] Comment on above: Performed By: #### C BC #### [facility] [address] [place] [address] Lymphocytes/100 WBC (Bld) 31.9 % Normal 13.0 - 44.0 [facility] Comment on above: Performed By: #### C BC #### [facility] [address] [place] [address] MCHC (RBC) [Mass/Vol] 33.7 g/dL Normal 32.0 - 36.0 [facility] Comment on above: Performed By: #### C BC #### [facility] [address] [place] [address] MCV (RBC) [Entitic vol] 91 fL Normal 80 - 100 [facility] Comment on above: Performed By: #### C BC #### [facility] [address] [place] [address] Monocytes (Bld) [#/Vol] 0.49 10*3/uL Normal 0.10 - 1.00 [facility] Comment on above: Performed By: #### C BC #### [facility] [address] [place] [address] Monocytes/100 WBC (Bld) 6.5 % Normal 2.0 - 10.0 [facility] Comment on above: Performed By: #### C BC #### [facility] [address] [place] [address] Neutrophils (Bld) [#/Vol] 4.32 10*3/uL Normal 1.20 - 7.70 [facility] Comment on above: Performed By: #### C BC #### [facility] [address] [place] [address] Neutrophils/100 WBC (Bld) 57.2 % Normal 40.0 - 80.0 [facility] Comment on above: Performed By: #### C BC #### [facility] [address] [place] [address] NUCLEATED RBC 0.0 /100 WBC Normal 0.0-0.0 [facility] Comment on above: Performed By: #### C BC #### [facility] [address] [place] [address] Platelets (Bld) [#/Vol] 228 10*3/uL Normal 150 - 450 [facility] Comment on above: Performed By: #### C BC #### [facility] [address] [place] [address] RBC 3.39 x10E12/L Low 4.00 - 5.20 [facility] Comment on above: Performed By: #### C BC #### [facility] [address] [place] [address] WBC (Bld) [#/Vol] 7.6 10*3/uL Normal 4.4 - 11.3 [facility] Comment on above: Performed By: #### C BC #### [facility] [address] [place] [address] Complete Blood Count + Diffe sonjaon 09-23-2021 Basophils/100 WBC (Bld) 0.4 % 0.0 [...] Differential 4.32 {x10E9/L} See Below MG-Gastroen terology-Ros[facility] 6 I Work Phone: Comment on above: Reference Range: 1.2 0 - 7.70 Complete Blood Count + Differential 3.6 % 0.0 - 6.0 MG-Gastroen terology-[facility] 6 I Work Phone: Complete Blood Count + Differential 0.4 % 0.0 - 0.9 [facility] 6 [facility] Work Phone: Comment on above: Immature Granulocyte Count (IG) includes promyelocytes, myelocytes and metamyelocytes but does not include bands. Percent differential counts (%) should be interpreted in the context of the absolute cell counts (cells/L). Complete Blood Count + Differential 0.0 {/100_WBC} 0.0-0.0 [facility] 6 [facility] Work Phone: Laboratory - Hematology and Cell countson 09-23-2021 Erythrocyte distribution width (RBC) [Ratio] 13.1 % See Below -[facility] 6 [facility] Work Phone: Comment on above: Reference Range: 11. 5 - 14.5 Hematocrit (Bld) [Volume fraction] 30.5 % below low threshold See Below [facility] 6 [facility] Work Phone: Comment on above: Reference Range: 36. 0 - 46.0 Hemoglobin (Bld) [Mass/Vol] 9.9 g/dL below low threshold See Below [facility] Work Phone: Comment on above: Reference Range: 12. 0 - 16.0 MCHC (RBC) [Mass/Vol] 32.5 g/dL See Below MG-Gastroen terology-Ros[facility] ell 6 [facility] Work Phone: Comment on above: Reference Range: 32. 0 - 36.0 MCV (RBC) [Entitic vol] 92 fL 80 - 100 MG-Gastroen terology-Rosendo ell 6 [facility] Work Phone: Platelets (Bld) [#/Vol] 244 10*3/uL 150 - 450 MG-Gastroen terology-[place]endo [place] 6 I Work Phone: RBC (Bld) [#/Vol] 3.33 {x10E12/L} below low threshold See Below MG-Gastroen terology-Rosendo [place]well 6 [facility] Work Phone: Comment on above: Reference Range: 4.0 0 - 5.20 WBC (Bld) [#/Vol] 8.6 10*3/uL 4.4 - 11.3 MG-Gas troen terology-[place]endo [place] 6 I Work Phone: MAGNESIUMon 09-23-2021 Magnesium [Mass/Vol] 1.68 mg/dL Normal 1.60 - 2.40 [facility] Comment on above: Performed By: #### C BC #### [facility] [address] [place] [address] Magnesium, Serumon Magnesium [Mass/Vol] 1.68 mg/dL See Below MG-G astroen terology-[place]endo [place] 6 I Work Phone: Comment on above: Reference Range: 1.6 0 - 2.40 No Panel Informationon 09-23 0.0 {/100_WBC} 0.0-0.0 MG-Gastroe n terology-[place] 6 I Work Phone: Order Reconciliationon 09-23 Order Reconciliation Page 1 Discharge Reconciliation Document Reconciliation Type: Discharge requested on behalf of Ambrocio Izaguirre (Advanced Practice Nurse) done by Ambrocio Izaguirre ([facility]) Discharge - Partial Reconciliation: 23-Sep-2021 13:21 by: Ambrocio Izaguirre ([facility]) Discharge - Partial Reconciliation: 24-Sep-2021 10:12 by: Ambrocio Izaguirre ([facility]) Discharge - Partial Reconciliation: 30-Sep-2021 14:12 by: Concetta Shi ([facility]) Discharge - Partial Reconciliation: 30-Sep-2021 14:14 by: Concetta Shi ([facility]) Discharge - Reconciliation: 30-Sep-2021 14:24 by: Concetta Shi ([facility]) Discharge - Reset to Incomplete: 02-Oct-2021 15:36 by: Ambrocio Izaguirre ([facility]) Discharge - Reconciliation: 02-Oct-2021 15:40 by: Ambrocio Izaguirre ([facility]) Discharge - Reset to Incomplete: 02-Oct-2021 15:57 by: Ambrocio Izaguirre ([facility]) Discharge - Reconciliation: 02-Oct-2021 15:58 by: Ambrocio Izaguirre ([facility]) Home Medications EnteredHOME MEDICATIONS AT [...] not required (more content not included)... Normal [facility] PATH REVIEW-IMMUNOHEMATOLOGY on 09-23-2021 PATH REV-IMMUNOHEMOTOL LETA Normal [facility] Comment on above: Result Comment: By [...] PATIENT. Performed By: #### A FPA3 #### [facility] [address] [place] [address] RENAL FUNCTION PANELon 09-23 Albumin [Mass/Vol] 2.7 g/dL Low 3.4 - 5.0 [facility] Comment on above: Performed By: #### V FPA3 #### [facility] [address] [place] [address] Anion gap [Moles/Vol] 10 mmol/L Normal 10 - 20 [facility] Comment on above: Performed By: #### V FPA3 #### [facility] [address] [place] [address] Calcium [Mass/Vol] 7.9 mg/dL Low 8.6 - 10.6 [facility] Comment on above: Performed By: #### V FPA3 #### [facility] [address] [place] [address] Chloride [Moles/Vol] 108 mmol/L High 98 - 107 [facility] Comment on above: Performed By: #### V FPA3 #### [facility] [address] [place] [address] Creatinine [Mass/Vol] 0.39 mg/dL Low 0.50 - 1.05 [facility] Comment on above: Performed By: #### V FPA3 #### [facility] [address] [place] [address] eGFR FEMALE >90 Normal >90 [facility] Comment on above: Result Comment: CALC ULATIONS OF ESTIMATED GFR ARE PERFORMED USING THE 2020 CKD-EPI STUDY REFIT EQUATION WITHOUT THE RACE VARIABLE FOR THE IDMS-TRACEABLE CREATININE METHODS. https://jasn.asnjournals.org/content/early/ASN.3802345 988 Performed By: #### V FPA3 #### [facility] [address] [place] [address] Glucose [Mass/Vol] 87 mg/dL Normal 74 - 99 [facility] Comment on above: Performed By: #### V FPA3 #### [facility] [address] [place] [address] HCO3 (Bld) [Moles/Vol] 29 mmol/L Normal 21 - 32 [facility] Comment on above: Performed By: #### V FPA3 #### [facility] [address] [place] [address] Phosphate [Mass/Vol] 2.7 mg/dL Normal 2.5 - 4.9 [facility] Comment on above: Result Comment: The performance characteristics of phosphorus testing in heparinized plasma have been validated by the individual laboratory site where testing is performed. Testing on heparinized plasma is not approved by the FDA; however, such approval is not necessary. Performed By: #### V FPA3 #### [facility] [address] [place] [address] Potassium [Moles/Vol] 3.6 mmol/L Normal 3.5 - 5.3 [facility] Comment on above: Performed By: #### V FPA3 #### [facility] [address] [place] [address] Sodium [Moles/Vol] 143 mmol/L Normal 136 - 145 [facility] Comment on above: Performed By: #### V FPA3 #### [facility] [address] [place] [address] Urea nitrogen [Mass/Vol] 9 mg/dL Normal 6 - 23 [facility] Comment on above: Performed By: #### V FPA3 #### [facility] [address] [place] [address] Rehab Note-individual therap yon 09-23-2021 Rehab Note-individual therapy Rehab: Info: Disciplinephysical therapist Mode of Treatmentphysical therapy; individual therapy Time IN14:50 Time OUT15:29 Total Treatment [id number] Patient in ... at end of sessionbed, [...] sit to supine; rolling right Roll Left [place] (Bed Mobility)verbal cues; maximum assist (25% patient effort); 1 person assist Roll Right [place] (Bed Mobility)maximum assist (25% patient effort); verbal cues; 1 person assist Scoot/Bridge [place] (Bed Mobility)verbal cues; maximum assist (25% patient effort); 2 person assist; boost HOB Nrozlp-qu-Wau [place] (Bed Mobility)verbal cues; maximum assist (25% patient effort); 1 person assist Ujk-fu-Napmpl [place] (Bed Mobility)set up; verbal cues; maximum assist (25% patient effort); 1 person assist Assistive Device (Bed Mobility)bed rails; draw sheet Transfer Assessment/Interventionssit to stand transfer; stand to sit transfer Sit-Stand [place] (Transfers)2 person assist; moderate assist (50% patient effort) Sit-Stand Assistive Device (Transfers)B arm-in-arm assist Stand-Sit [place] (Transfers)2 person assist; moderate assist (50% patient [...] aware and pt is on scheduled pain [facility]: Plan of Care Reviewed Withpatient TherEx: Therapeutic [...] 23-Sep-2021 15:50 by Boone Broussard (PT) Normal [facility] Renal Function Panelon 09-23 Albumin BCP dye [Mass/Vol] 2.7 g/dL below low threshold 3.4 - 5.0 [facility] Work Phone: Anion gap [Moles/Vol] 10 mmol/L 10 - 20 [facility] I Work Phone: Calcium [Mass/Vol] 7.9 mg/dL below [...] >90 >90 [facility]en [facility] 6 [facility] Work Phone: Comment on above: CALCULATIONS OF IVY MATED GFR ARE PERFORMED USING THE 2020 CKD-EPI STUDY REFIT EQUATION WITHOUT THE RACE VARIABLE FOR THE IDMS-TRACEABLE CREATININE METHODS.https://jasn.asnjournals.org/content/early//ASN .6969444364 ANTIBODY IDENT.on 09-22-2021 ANTIBODY IDENT. Anti-E Normal [facility] Comment on above: Performed By: #### V FPA3 #### [facility] [address] [place] [address] CBCon 09-22-2021 Erythrocyte distribution width (RBC) [Ratio] 13.2 % Normal 11.5 - 14.5 [facility] Comment on above: Performed By: #### V FPA3 #### [facility] [address] [place] [address] Hematocrit (Bld) [Volume fraction] 30.6 % Low 36.0 - 46.0 [facility] Comment on above: Performed By: #### V FPA3 #### [facility] [address] [place] [address] Hemoglobin (Bld) [Mass/Vol] 10.2 g/dL Low 12.0 - 16.0 [facility] Comment on above: Performed By: #### V FPA3 #### [facility] [address] [place] [address] MCHC (RBC) [Mass/Vol] 33.3 g/dL Normal 32.0 - 36.0 [facility] Comment on above: Performed By: #### V FPA3 #### [facility] [address] [place] [address] MCV (RBC) [Entitic vol] 91 fL Normal 80 - 100 [facility] Comment on above: Performed By: #### V FPA3 #### [facility] [address] [place] [address] NUCLEATED RBC 0.0 /100 WBC Normal 0.0-0.0 [facility] Comment on above: Performed By: #### V FPA3 #### [facility] [address] [place] [address] Platelets (Bld) [#/Vol] 215 10*3/uL Normal 150 - 450 [facility] Comment on above: Performed By: #### V FPA3 #### [facility] [address] [place] [address] RBC 3.37 x10E12/L Low 4.00 - 5.20 [facility] Comment on above: Performed By: #### V FPA3 #### [facility] [address] [place] [address] WBC (Bld) [#/Vol] 9.6 10*3/uL Normal 4.4 - 11.3 [facility] Comment on above: Performed By: #### V FPA3 #### [facility] [address] [place] [address] CBC AND DIFFERENTIALon 09-22 % AUTOMATED IMMATURE GRAN 0.4 % Normal 0.0 - 0.9 [facility] Comment on above: Result Comment: Jaleesa ture Granulocyte Count (IG) includes promyelocytes, myelocytes and metamyelocytes but does not include bands. Percent differential counts (%) should be interpreted in the context of the absolute cell counts (cells/L). Performed By: #### C BCDF ####[id number] [place] [address] Basophils (Bld) [#/Vol] 0.02 10*3/uL Normal 0.00 - 0.10 [facility] Comment on above: Performed By: #### C BCDF ####[id number] [place] [address] Basophils/100 WBC (Bld) 0.2 % Normal 0.0 - 2.0 [facility] Comment on above: Performed By: #### C BCDF ####[id number] [place] [address] Eosinophils (Bld) [#/Vol] 0.04 10*3/uL Normal 0.00 - 0.70 [facility] Comment on above: Performed By: #### C BCDF ####[id number] [place] [address] Eosinophils/100 WBC (Bld) 0.4 % Normal 0.0 - 6.0 [facility] Comment on above: Performed By: #### C BCDF ####[id number] [place] [address] Erythrocyte distribution width (RBC) [Ratio] 13.2 % Normal 11.5 - 14.5 [facility] Comment on above: Performed By: #### C BCDF ####[id number] [place] [address] Hematocrit (Bld) [Volume fraction] 30.6 % Low 36.0 - 46.0 [facility] Comment on above: Performed By: #### C BCDF ####[id number] [place] [address] Hemoglobin (Bld) [Mass/Vol] 10.3 g/dL Low 12.0 - 16.0 [facility] Comment on above: Performed By: #### C BCDF ####[id number] [place] [address] Lymphocytes (Bld) [#/Vol] 2.19 10*3/uL Normal 1.20 - 4.80 [facility] Comment on above: Performed By: #### C BCDF ####[id number] [place] [address] Lymphocytes/100 WBC (Bld) 19.9 % Normal 13.0 - 44.0 [facility] Comment on above: Performed By: #### C BCDF ####[id number] [place] [address] MCHC (RBC) [Mass/Vol] 33.7 g/dL Normal 32.0 - 36.0 [facility] Comment on above: Performed By: #### C BCDF ####[id number] [place] [address] MCV (RBC) [Entitic vol] 90 fL Normal 80 - 100 [facility] Comment on above: Performed By: #### C BCDF ####[id number] [place] [address] Monocytes (Bld) [#/Vol] 0.71 10*3/uL Normal 0.10 - 1.00 [facility] Comment on above: Performed By: #### C BCDF ####[id number] [place] [address] Monocytes/100 WBC (Bld) 6.5 % Normal 2.0 - 10.0 [facility] Comment on above: Performed By: #### C BCDF ####[id number] [place] [address] Neutrophils (Bld) [#/Vol] 7.98 10*3/uL High 1.20 - 7.70 [facility] Comment on above: Performed By: #### C BCDF ####[id number] [place] [address] Neutrophils/100 WBC (Bld) 72.6 % Normal 40.0 - 80.0 [facility] Comment on above: Performed By: #### C BCDF ####[id number] [place] [address] NUCLEATED RBC 0.0 /100 WBC Normal 0.0-0.0 [facility] Comment on above: Performed By: #### C BCDF ####[id number] [place] [address] Platelets (Bld) [#/Vol] 242 10*3/uL Normal 150 - 450 [facility] Comment on above: Performed By: #### C BCDF ####[id number] [place] [address] RBC 3.39 x10E12/L Low 4.00 - 5.20 [facility] Comment on above: Performed By: #### C BCDF ####[id number] [place] [address] WBC (Bld) [#/Vol] 11.0 10*3/uL Normal 4.4 - 11.3 [facility] Comment on above: Performed By: #### C BCDF ####[id number] [place] [address] Complete Blood Count + Diffe rentialon 09-22-2021 Basophils/100 WBC (Bld) 0.2 % 0.0 - 2.0 [facility] Work Phone: Erythrocyte distribution width (RBC) [Ratio] 13.2 % See Below [facility] Work Phone: Comment on above: Reference Range: 11. 5 - 14.5 Hematocrit (Bld) [Volume fraction] 30.6 % below low threshold See Below [facility] [facility] Work Phone: Comment on above: Reference Range: 36. 0 - 46.0 Hemoglobin (Bld) [Mass/Vol] 10.3 g/dL below low threshold See Below [facility] [facility] Work Phone: Comment on above: Reference Range: 12. 0 - 16.0 Lymphocytes/100 WBC (Bld) 19.9 % See Below [facility] [facility] Work Phone: Comment on above: Reference Range: 13. 0 - 44.0 MCHC (RBC) [Mass/Vol] 33.7 g/dL See Below [facility] [facility] Work Phone: Comment on above: Reference [...] 0.4 % 0.0 - 0.9 [facility] I Work Phone: Comment on above: [...] Cx Nom (U) [facility] Work Phone: Daily Progress Note - Psychi atryon 09-22-2021 Daily Progress Note - Psychiatry Subjective Data: MORALES LEE is a 46 year old Female who is Hospital Day # 8. Pt seen lying in bed this morning, with at bedside. She is currently on MANAGER PAID for pain, and reports being tired this [...] this time. Objective: Objective Information: T PRBPSpO2 [id number]/5792% Date/Time09/22 0:001 8: 8:001 8:001/18 8:00 Range(36.3C - 36.8C [...] Fair. Medications: Continuous Medications ----- 1. HYDROmorphone MANAGER PAID 25 mg/ NaCL 0.9% 50 mL: 2.6 mg/hr IV MANAGER PAID 2. Sodium Chloride 0.9% Infusion: 1000 mL [...] I have reviewed these laboratory results [facility]: Complete Blood Count + Differential 22-Sep-2021 05:01:00 [...] from Suboxone (more content not included)... Normal [facility] Daily Progress Note-Neurosjudy stearns 09-22-2021 Daily Progress Note-Neurosurgery Service: Neurosurgery Subjective Data: MORALES LEE is a 46 year old Female who is Hospital Day # 8 and POD #1 for posterior L4-L5 decompression;posterior L4-L5 arthrodesis. Objective Data: Objective Information: T PRBPSpO2 [id number]/5895% Date/Time09/22 0:001 0:001 0:001 0:001/ 0:00 Range(36.2C - 36.8C ) (82 - 109 ) (12 - 20 ) (85 - 132 )/ (49 - 89 ) (94% - 100% ) As of 21-Sep-2021 17:00:00, patient is on 4 L/min of oxygen via nasal cannula. Pain reported at 09/21 16:33: 5 = Moderate ---- Intake and Output ----- Mn/Dy/Year TimeIntakeOutputNet Sep 20, 2021 10:00 [id number] Sep 20, 2021 6:00 [id number] The Intake and Output Totals for the last 24 hours are: IntakeOutputNet [id number] Physical Exam by System: Neurological: A&Ox3 RUE [...] Chronic pain recs- intra-op ketamine, meloxicam post-op, MANAGER PAID until good PT eval, Suboxone as OP [...] the note. I personally evaluated the patient [id number] Electronic Signatures: Fidel Maciel (Resident)) (Signed 22-Sep-2021 00:35) Authored: Service, Subjective Data, Objective Data, Assessment and Plan, Note Completion Lex Frederick) (Signed 22-Sep-2021 10:31) Authored: Note Completion Co-Signer: Service, Subjective Data, Objective Data, Assessment and Plan, Note Completion Last Updated: 22-Sep-2021 10:31 by Lex Frederick) Normal [facility] Discharge [id number] 022 Discharge Profile2 Discharge Orders: Anticipated Discharge Date: Anticipated Discharge [id number] Problem List: Additional Dx: Spinal stenosis of [...] Please call your Neurosurgeon's office (Dr. Frederick [phone]) if you have any questions. -If you [...] or twist. Instead, bend at knees to order picker objects. Wound Care: Inspect your incision [...] taking Acetamin (more content not included)... Normal [facility] LACTATEon 09-22-2021 Lactate [Moles/Vol] 0.8 mmol/L Normal 0.4 - 2.0 [facility] Comment on above: Result Comment: Trina puncture immediately after or during the administration of Metamizole may lead to falsely low results. Testing should be performed immediately prior to Metamizole dosing. Performed By: #### C BC #### [facility] [address] [place] [address] Laboratory - Hematology and Cell countson 09-22-2021 [...] g/dL See Below [facility] [facility] Work Phone: Comment on above: Reference [...] troen terology[facility] [facility] Work Phone: Lactate, Levelon 09-22-2021 Lactate [Moles/Vol] 0.8 mmol/L 0.4 - 2.0 [facility] [facility] [facility] Work Phone: Comment on above: Venipuncture immedia [...] safety. Time IN10:50 Time OUT11:40 Total Treatment [id number] Patient in ... at end of sessionbed, 3 railings up; alarm on Communicated with ... at end of sessionbedside nurse Patient Effortgood Symptoms Noted During/After Treatmentfatigue; increased pain Patient Profile Reviewedyes Onset of Illness/Injury or Date of [id number] Reason for Referral-09/18/21: s/p exploration of spinal [...] EOB sitting. Pertinent History of Current Functional [id number] y/o with hx of HTN, C6-7 ACDF, [...] TubesIV; triple lumen; telemetry; urethral catheter indwelling; MANAGER PAID pump, DAVOL drain, wound vac O2 Deliverynasal cannula; 4L Pre Treatment Patient Positionsupine Pre Treatment Blood Pressure Salsbhut75 mmHg Pre Treatment Diastolic (mm Hg)46 mmHg Pre Treatment Heart Rate (beats/min)67 Pre Treatment Respiratory Rate (breaths/min)19 Pre Treatment SpO2 (%)96 % Pre Treatment Oxygen Deliverysupplemental O2 Pre Treatment CommentsMAP 56 During Treatment Patient Positionsitting During Treatment Blood Pressure Iotzvtof30 mmHg During Treatment Diastolic (mm Hg)77 mmHg [...] to sit; sit to supine Roll Left [place] (Bed Mobility)set up; verbal cues; 2 person assist; Pt required assist to bend BLE at (more content not included)... Normal [facility] PATH REVIEW-IMMUNOHEMATOLOGY on 09-22-2021 PATH REV-IMMUNOHEMOTOL ZURDO Normal [facility] Comment on above: Result Comment: By [...] THIS PATIENT. Performed By: #### C #### [facility] [address] [place] [address] PT Evaluation [id number]-yw-[id number] t - co-treatment with OT to maxion 09-22-2021 PT Evaluation [id number]-rz-[id number] - co-treatment with OT to maxi Rehab: Info: Mode of Treatmentphysical therapy; co-treatment; co-treatment with OT to maximize safety, mobility and ADL participation Time IN10:50 Time OUT11:40 Total Treatment [id number] Patient in ... at end of sessionbed, 3 railings up; alarm on Communicated with ... at end of sessionbedside nurse Patient Effortgood Symptoms Noted During/After Treatmentfatigue; increased pain Patient Profile Reviewedyes Onset of Illness/Injury or Date of [id number] Reason for Referral-09/18/21: s/p exploration of spinal [...] TubesIV; triple lumen; telemetry; urethral catheter indwelling; MANAGER PAID pump, DAVOL drain, wound vac O2 Deliverynasal cannula; 4L Pre Treatment Patient Positionsupine Pre Treatment Blood Pressure Koesngdm11 mmHg Pre Treatment Diastolic (mm Hg)46 mmHg Pre Treatment Heart Rate (beats/min)67 Pre Treatment SpO2 (%)96 % Pre Treatment Oxygen Deliverysupplemental O2 During Treatment Patient Positionsitting During Treatment Blood Pressure Gvogbvch59 mmHg During Treatment Diastolic (mm Hg)77 mmHg [...] sit to supine; rolling right Roll Left [place] (Bed Mobility)verbal cues; 2 person assist; Pt required assist to bend BLE at knees and to initiate turn at shoulders and hips, verbal cues for grasp on bed rail, technique, direction follow, and encouragement.; maximum assist (25% patient effort) Roll Right [place] (Bed Mobility)2 person assist; maximum assist (25% patient effort); verbal cues Scoot/Bridge [place] (Bed Mobility)verbal cues; maximum assist (25% patient effort); 2 person assist; boost HOB Lkaeqd-gk-Hgh [place] (Bed Mobility)verbal cues; maximum assist (25% patient effort); 1 person assist Bzj-nd-Wbspym [place] (Bed Mobility)set up; verbal cues; maximum assist (25% patient effort); 1 person assist Assistive Device (Bed Mobility)bed rails; draw sheet Impairments Impacting Function (Mobility)balance; cognition; endurance/activity tolerance; pain; strength; postural/trunk control; motor control Motor: Sitting, Static (Balance)SBA Sitting, Dynamic (Balance)CGA Koq-an-Rhbzq (Balance)MADELIN this visit. Pt hypotensive Sensory: Pre-Treatment Pain Rating7/10 Post-Treatment Pain Rating7/10 Comment, Pre/Post Treatment PainPt reported pain throughout buttocks and back, utilized MANAGER PAID pump as needed. Pain LimitationFunctional mobility limited due pain; ADLs/IADLs limited due to pain; Participation limited by pain; RN or team was notified of limitations due to p (more content not included)... Normal [facility] RENAL FUNCTION PANELon 09-22 Albumin [Mass/Vol] 2.7 g/dL Low 3.4 - 5.0 [facility] Comment on above: Performed By: #### C BC #### [facility] [address] [place] [address] Anion gap [Moles/Vol] 10 mmol/L Normal 10 - 20 [facility] Comment on above: Performed By: #### C BC #### [facility] [address] [place] [address] Calcium [Mass/Vol] 7.8 mg/dL Low 8.6 - 10.6 [facility] Comment on above: Performed By: #### C BC #### [facility] [address] [place] [address] Chloride [Moles/Vol] 105 mmol/L Normal 98 - 107 [facility] Comment on above: Performed By: #### C BC #### [facility] [address] [place] [address] Creatinine [Mass/Vol] 0.49 mg/dL Low 0.50 - 1.05 [facility] Comment on above: Performed By: #### C BC #### [facility] [address] [place] [address] eGFR FEMALE >90 Normal >90 [facility] Comment on above: Result Comment: CALC ULATIONS OF ESTIMATED GFR ARE PERFORMED USING THE 2020 CKD-EPI STUDY REFIT EQUATION WITHOUT THE RACE VARIABLE FOR THE IDMS-TRACEABLE CREATININE METHODS. https://jasn.asnjournals.org/content/early/ASN.6923274 988 Performed By: #### C BC #### [facility] [address] [place] [address] Glucose [Mass/Vol] 93 mg/dL Normal 74 - 99 [facility] Comment on above: Performed By: #### C BC #### [facility] [address] [place] [address] HCO3 (Bld) [Moles/Vol] 29 mmol/L Normal 21 - 32 [facility] Comment on above: Performed By: #### C BC #### [facility] [address] [place] [address] Phosphate [Mass/Vol] 2.4 mg/dL Low 2.5 - 4.9 [facility] Comment on above: Result Comment: The performance characteristics of phosphorus testing in heparinized plasma have been validated by the individual laboratory site where testing is performed. Testing on heparinized plasma is not approved by the FDA; however, such approval is not necessary. Performed By: #### C BC #### [facility] [address] [place] [address] Potassium [Moles/Vol] 4.3 mmol/L Normal 3.5 - 5.3 [facility] Comment on above: Performed By: #### C BC #### [facility] [address] [place] [address] Sodium [Moles/Vol] 140 mmol/L Normal 136 - 145 [facility] Comment on above: Performed By: #### C BC #### [facility] [address] [place] [address] Urea nitrogen [Mass/Vol] 9 mg/dL Normal 6 - 23 [facility] Comment on above: Performed By: #### C BC #### [facility] [address] [place] [address] Renal Function Panelon 09-22 Albumin BCP dye [Mass/Vol] 2.7 g/dL below low threshold 3.4 - 5.0 [facility] Work Phone: Anion gap [Moles/Vol] 10 mmol/L 10 - 20 [facility] [facility] Work Phone: Calcium [Mass/Vol] 7.8 mg/dL below [...] RACE VARIABLE FOR THE IDMS-TRACEABLE CREATININE METHODS.https://jasn.asnjournals.org/content/early/ASN .4527002950 UA MICROSCOPICon 09-22-2021 RBC 6 /HPF Abnormal 0-5 [facility] Comment on above: Performed By: #### C BC #### [facility] [address] [place] [address] SQUAMOUS EPITH. CELLS 1 /HPF Normal [facility] Comment on above: Performed By: #### C BC #### [facility] [address] [place] [address] WBC 8 /HPF Abnormal 0-5 [facility] Comment on above: Performed By: #### C BC #### [facility] [address] [place] [address] URINALYSIS WITH CULTURE IF I NDICATEDon 09-22-2021 Appearance (U) CLEAR Normal CLEAR [facility] Comment on above: Performed By: #### U ARFX ####[id number] [place] [address] Bilirubin Ql (U) Negative Normal NEGATIVE [facility] Comment on above: Performed By: #### U ARFX ####[id number] [place] [address] Color (U) MIRANDA Normal STRAW,YELLO W [facility] Comment on above: Performed By: #### U ARFX ####[id number] [place] [address] Glucose Ql (U) Negative Normal NEGATIVE [facility] Comment on above: Performed By: #### U ARFX ####[id number] [place] [address] Hemoglobin Ql (U) Negative Normal NEGATIVE [facility] Comment on above: Performed By: #### U ARFX ####[id number] [place] [address] Ketones Ql (U) 20 (1+) Abnormal NEGATIVE [facility] Comment on above: Performed By: #### U ARFX ####[id number] [place] [address] Leukocyte esterase Test strip Ql (U) Negative Normal NEGATIVE [facility] Comment on above: Performed By: #### U ARFX ####[id number] [place] [address] Nitrite Ql (U) Negative Normal NEGATIVE [facility] Comment on above: Performed By: #### U ARFX ####[id number] [place] [address] pH (U) 5.0 [pH] Normal 5.0 - 8.0 [facility] Comment on above: Performed By: #### U ARFX ####[id number] [place] [address] Protein Ql (U) 30 (1+) Abnormal NEGATIVE [facility] Comment on above: Performed By: #### U ARFX ####[id number] [place] [address] Specific gravity (U) [Rel density] 1.040 High 1.005 - 1.035 [facility] Comment on above: Performed By: #### U ARFX ####[id number] [place] [address] Urobilinogen (U) [Mass/Vol] 2.0 mg/dL High 0.0 - 1.9 [facility] Comment on above: Result Comment: Due [...] positive urobilinogen. Performed By: #### U ARFX ####[id number] [place] [address] Lab Specimen Source Normal [facility] Comment on above: Performed By: #### U ARFX ####[id number] [place] [address] Performed By: #### C BC #### [facility] [address] [place] [address] Color (U) MIRANDA See Below [facility] Work Phone: Comment on above: SOURCE: Reference [...] Negative NEGATIVE [facility] I Work Phone: Specific gravity (U) [...] INDICATED Negative NEGATIVE [facility] Work Phone: URINALYSIS WITH CULTURE IF INDICATED CLEAR CLEAR [facility] Work Phone: URINE CULTURE,BACTERIALon URINE CULTURE,BACTERIAL PATIENT: MORALES LEE LOCATION: [address]#: [id number] : 71 AGE: SEX: F ORDERED BY: AMBROCIO IZAGUIRRE SOURCE: URINE COLLECTED: 09/22/21 12:59 ANTIBIOTICS AT [facility].: RECEIVED : 09/22/21 14:59 SITE: R E S U L T S URINE CULTURE,BACTERIAL FINAL 09/23/21 09:04 NO SIGNIFICANT GROWTH. Normal [facility] Comment on above: Performed By: #### C BC #### [facility] [address] [place] [address] Urinalysis, Microscopicon Urinalysis, Microscopic 1 {/HPF} [facility] Work Phone: Urinalysis, Microscopic 6 {/HPF} Abnormal 0-5 [facility] Work Phone: Urinalysis, Microscopic 8 {/HPF} Abnormal 0-5 [facility] Work Phone: Comment on above: SOURCE: CBCon 09-21-2021 Erythrocyte distribution width (RBC) [Ratio] 13.1 % Normal 11.5 - 14.5 [facility] Comment on above: Performed By: #### R ENAL #### [facility] [address] [place] [address] Hematocrit (Bld) [Volume fraction] 34.5 % Low 36.0 - 46.0 [facility] Comment on above: Performed By: #### R ENAL #### [facility] [address] [place] [address] Hemoglobin (Bld) [Mass/Vol] 11.4 g/dL Low 12.0 - 16.0 [facility] Comment on above: Performed By: #### R ENAL #### [facility] [address] [place] [address] MCHC (RBC) [Mass/Vol] 33.0 g/dL Normal 32.0 - 36.0 [facility] Comment on above: Performed By: #### R ENAL #### [facility] [address] [place] [address] MCV (RBC) [Entitic vol] 91 fL Normal 80 - 100 [facility] Comment on above: Performed By: #### R ENAL #### [facility] [address] [place] [address] NUCLEATED RBC 0.0 /100 WBC Normal 0.0-0.0 [facility] Comment on above: Performed By: #### R ENAL #### [facility] [address] [place] [address] Platelets (Bld) [#/Vol] 269 10*3/uL Normal 150 - 450 [facility] Comment on above: Performed By: #### R ENAL #### [facility] [address] [place] [address] RBC 3.81 x10E12/L Low 4.00 - 5.20 [facility] Comment on above: Performed By: #### R ENAL #### [facility] [address] [place] [address] WBC (Bld) [#/Vol] 14.6 10*3/uL High 4.4 - 11.3 [facility] Comment on above: Performed By: #### R ENAL #### [facility] [address] [place] [address] Erythrocyte distribution width (RBC) [Ratio] 13.2 % Normal 11.5 - 14.5 [facility] Comment on above: Performed By: #### R ENAL #### [facility] [address] [place] [address] Hematocrit (Bld) [Volume fraction] 35.8 % Low 36.0 - 46.0 [facility] Comment on above: Performed By: #### R ENAL #### [facility] [address] [place] [address] Hemoglobin (Bld) [Mass/Vol] 11.9 g/dL Low 12.0 - 16.0 [facility] Comment on above: Performed By: #### R ENAL #### [facility] [address] [place] [address] MCHC (RBC) [Mass/Vol] 33.2 g/dL Normal 32.0 - 36.0 [facility] Comment on above: Performed By: #### R ENAL #### [facility] [address] [place] [address] MCV (RBC) [Entitic vol] 91 fL Normal 80 - 100 [facility] Comment on above: Performed By: #### R ENAL #### [facility] [address] [place] [address] NUCLEATED RBC 0.0 /100 WBC Normal 0.0-0.0 [facility] Comment on above: Performed By: #### R ENAL #### [facility] [address] [place] [address] Platelets (Bld) [#/Vol] 215 10*3/uL Normal 150 - 450 [facility] Comment on above: Performed By: #### R ENAL #### [facility] [address] [place] [address] RBC 3.93 x10E12/L Low 4.00 - 5.20 [facility] Comment on above: Performed By: #### R ENAL #### [facility] [address] [place] [address] WBC (Bld) [#/Vol] 14.8 10*3/uL High 4.4 - 11.3 [facility] Comment on above: Performed By: #### R ENAL #### [facility] [address] [place] [address] Daily Progress Note-Neurosur jinny 09-21-2021 Daily Progress Note-Neurosurgery Service: Neurosurgery Subjective Data: MORALES LEE is a 46 year old Female who is Hospital Day # 7 and POD #3 for 1. Exploration of spinal fusion;2. Reduction of L4/5 dislocation;2. L5-pelvis instrumented fusion with posterolateral arthrodesis;4. Extension of instrumentation with multiple kwame construct and side connectors. Objective Data: Objective Information: T PRBPSpO2 [id number]/8495% Date/Time09/20 15: 4: 4: 4: 4:00 Range(36.9C [...] ----- Mn/Dy/Year TimeIntakeOutputNet Sep 19, 2021 10:00 [id number] Sep 19, 2021 6:00 [id number] The Intake and Output Totals for the last 24 hours are: IntakeOutputNet [id number] Physical Exam by System: Neurological: A&Ox3 RUE [...] Chronic pain recs- intra-op ketamine, meloxicam post-op, MANAGER PAID until good PT eval, Suboxone as OP [...] the following: I personally evaluated the patient [id number] Comments/ Additional Findings The patient has been [...] inborn buckling of the ligamentum flavum from taoist of for significant kyphotic malalignment spine I [...] MRI was performed and 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 Normal [facility] - Blood bankon ABO group Nom (Bld) O [facility] [facility] Work Phone: Blood group antibody investigation (P/RBC) [Interp] Anti-E [facility] [facility] Work Phone: [phone] Blood group antibody screen Ql Positive [facility] Work Phone: [phone] Rh immune globulin screen (Bld) [Interp] Positive [facility] Work Phone: [phone] ABO group Nom (Bld) Canceled [facility] Work Phone: [phone] Comment on above: CALLED MERA SPEARS, 09/21/2021 [...] lumbar spine September 18, 2021 ACCESSION NUMBER(S): [id number]; [id number] ORDERING CLINICIAN: DEVANTE STARKS TECHNIQUE: Sagittal axial [...] disc space at S1-2. Electronically signed by: DO Andrei MESSER [facility] NR MRI T-SPINE WOon 09-21-19 NR MRI T-SPINE WO Patient Name: MORALES LEE STUDY: MRI T-SPINE WO; MRI L-SPINE WO; 09/20/2021 10:40 pm; 09/20/2021 10:42 pm INDICATION: postop foot weakness, Lie Flat: Yes, Pre Med: No . COMPARISON: MRI December 24, [address] of the lumbar spine September 18, 2021 ACCESSION NUMBER(S): [id number]; [id number] ORDERING CLINICIAN: DEVANTE STARKS TECHNIQUE: Sagittal axial [...] Electronically signed by: NATALIA WALL DO Normal [facility] No Panel Informationon 09-21 0.0 {/100_WBC} [...] Preop Checklist Preop Checklist: Preop Checklist: Arrival [id number] Arrival Time11:00 Procedure Typere-exploration of spine Temperature C36.2 degrees C Temperature F97.1 degrees F Heart Rate91 beats per minute Respiratory Rate18 breath per minute Blood Pressure Zlhcwjus385 mm/Hg Blood Pressure Tuifqvars67 mm/Hg COVID 19 Results in Last 7 [...] Language / CommunicationEnglish Electronic Signatures: Linh Buchanan (MERA) (Signed 21-Sep-2021 11:17) Authored: Preop Checklist Last Updated: 21-Sep-2021 11:17 by Linh Buchanan (RN) Normal [facility] REQUEST-LEUKOREDUCED RED ANJU LSon 09-21-2021 REQUEST-LEUKOREDUCED RED CELLS ORDER RECD Normal [facility] Comment on above: Performed By: #### A FPA3 #### [facility] [address] [place] [address] TYPE + SCREENon 09-21-2021 ABO TYPE O Normal [facility] Comment on above: Performed By: #### A FPA3 #### [facility] [address] [place] [address] RH TYPE Positive Normal [facility] Comment on above: Performed By: #### A FPA3 #### [facility] [address] [place] [address] ABO TYPE Canceled Normal [facility] Comment on above: Order Comment: VENECIA ESPINO, 09/21/2021 05:08TEST TYPE + SCREEN WAS CANCELLED, 09/21/2021 05:06 NO PHLEB ID ON TUBE. Result Comment: CALL ED MERA AFSANEH ESPINO, 09/21/2021 05:08 Performed By: #### A FPA3 #### [facility] [address] [place] [address] RH TYPE Canceled Normal [facility] Comment on above: Order Comment: CUADRA D MERA AFSANEH ESPINO, 09/21/2021 05:08TEST TYPE + SCREEN WAS CANCELLED, 09/21/2021 05:06 NO PHLEB ID ON TUBE. Result Comment: CALL ED MERA AFSANEH ESPINO, 09/21/2021 05:08 Performed By: #### A FPA3 #### [facility] [address] [place] [address] CBCon 09-20-2021 Erythrocyte distribution width (RBC) [Ratio] 13.2 % Normal 11.5 - 14.5 [facility] Comment on above: Performed By: #### C BC #### [facility] [address] [place] [address] Hematocrit (Bld) [Volume fraction] 30.8 % Low 36.0 - 46.0 [facility] Comment on above: Performed By: #### C BC #### [facility] [address] [place] [address] Hemoglobin (Bld) [Mass/Vol] 9.8 g/dL Low 12.0 - 16.0 [facility] Comment on above: Performed By: #### C BC #### [facility] [address] [place] [address] MCHC (RBC) [Mass/Vol] 31.8 g/dL Low 32.0 - 36.0 [facility] Comment on above: Performed By: #### C BC #### [facility] [address] [place] [address] MCV (RBC) [Entitic vol] 93 fL Normal 80 - 100 [facility] Comment on above: Performed By: #### C BC #### [facility] [address] [place] [address] NUCLEATED RBC 0.0 /100 WBC Normal 0.0-0.0 [facility] Comment on above: Performed By: #### C BC #### [facility] [address] [place] [address] Platelets (Bld) [#/Vol] 224 10*3/uL Normal 150 - 450 [facility] Comment on above: Performed By: #### C BC #### [facility] [address] [place] [address] RBC 3.32 x10E12/L Low 4.00 - 5.20 [facility] Comment on above: Performed By: #### C BC #### [facility] [address] [place] [address] WBC (Bld) [#/Vol] 12.1 10*3/uL High 4.4 - 11.3 [facility] Comment on above: Performed By: #### C BC #### [facility] [address] [place] [address] Daily Progress Note-Neurosur jinny 09-20-2021 Daily Progress Note-Neurosurgery Service: Neurosurgery Subjective Data: MORALES LEE is a 46 year old Female who is Hospital Day # 6 and POD #2 for 1. Exploration of spinal fusion;2. Reduction of L4/5 dislocation;2. L5-pelvis instrumented fusion with posterolateral arthrodesis;4. Extension of instrumentation with multiple kwame construct and side connectors. Objective Data: Objective Information: T PRBPSpO2 Value36.1427027/5095% Date/Time09/19 16: 1:341 16: 1:341 1:34 Range(36.7C - 36.7C ) (84 - 110 ) (18 - 18 ) (82 - 118 )/ (50 - 97 ) (94% - 97% ) As of 19-Sep-2021 08:00:00, patient is on 2 L/min of oxygen via nasal cannula. ---- Intake and Output ----- Mn/Dy/Year TimeIntakeOutputNet Sep 18, 2021 10:00 [id number] The Intake and Output Totals for the [...] chronic pain recs- intra-op ketamine, meloxicam post-op, MANAGER PAID until good PT eval, Suboxone as OP [...] Updated: 21-Sep-2021 11:28 by Perez Carlisle) Normal [facility] - Hematology and Cell countson 09-20-2021 Erythrocyte distribution width (RBC) [Ratio] 13.2 % See Below [facility] [facility] Work Phone: Comment on above: Reference [...] [facility] Work Phone: RBC (Bld) [#/Vol] 3.32 {x10E12/L} below low threshold See Below [facility] [facility] Work Phone: Comment on above: Reference Range: 4.0 0 - 5.20 WBC (Bld) [#/Vol] 12.1 10*3/uL above high threshold 4.4 - 11.3 [facility] [facility] Work Phone: MRI L Spine without Contrast on 09-20-2021 MR Lumbar spine WO contrast Normal [facility] [facility] Work Phone: MRI T Spine without Contrast on 09-20-2021 MR Thoracic spine WO contrast Normal [facility] [facility] Work Phone: No Panel Informationon 09-20 ORDER RECD [facility] [facility] Work Phone: 0.0 {/100_WBC} 0.0-0.0 [facility]astroe n [...] 20-Sep-2021 12:25 by Carole Carlos (OT) Normal [facility] PT Evaluation v2-attemptedon 09-20-2021 PT Evaluation v2-attempted Rehab: Info: Mode of Treatmentattempted Time IN12:00 Evaluation Not PerformedPer RN pt not appropriate for therapy, pt continues to have low BP and plan to receive blood, will hold and reattempt as appropriate Electronic Signatures: Kaykay Yoo (PT) (Signed 20-Sep-2021 12:42) Authored: Info Last Updated: 20-Sep-2021 12:42 by Kaykay Yoo (PT) Normal [facility] REQUEST-LEUKOREDUCED RED ANJU LSon 09-20-2021 REQUEST-LEUKOREDUCED RED CELLS ORDER RECD Normal [facility] Comment on above: Performed By: #### R ENAL #### [facility] [address] [place] [address] CBCon 09-19-2021 Erythrocyte distribution width (RBC) [Ratio] 12.4 % Normal 11.5 - 14.5 [facility] Comment on above: Performed By: #### R ENAL #### [facility] [address] [place] [address] Hematocrit (Bld) [Volume fraction] 38.3 % Normal 36.0 - 46.0 [facility] Comment on above: Performed By: #### R ENAL #### [facility] [address] [place] [address] Hemoglobin (Bld) [Mass/Vol] 13.4 g/dL Normal 12.0 - 16.0 [facility] Comment on above: Performed By: #### R ENAL #### [facility] [address] [place] [address] MCHC (RBC) [Mass/Vol] 35.0 g/dL Normal 32.0 - 36.0 [facility] Comment on above: Performed By: #### R ENAL #### [facility] [address] [place] [address] MCV (RBC) [Entitic vol] 85 fL Normal 80 - 100 [facility] Comment on above: Performed By: #### R ENAL #### [facility] [address] [place] [address] NUCLEATED RBC 0.0 /100 WBC Normal 0.0-0.0 [facility] Comment on above: Performed By: #### R ENAL #### [facility] [address] [place] [address] Platelets (Bld) [#/Vol] 326 10*3/uL Normal 150 - 450 [facility] Comment on above: Performed By: #### R ENAL #### [facility] [address] [place] [address] RBC 4.51 x10E12/L Normal 4.00 - 5.20 [facility] Comment on above: Performed By: #### R ENAL #### [facility] [address] [place] [address] WBC (Bld) [#/Vol] 20.5 10*3/uL High 4.4 - 11.3 [facility] Comment on above: Performed By: #### R ENAL #### [facility] [address] [place] [address] CBC AND DIFFERENTIALon 09-19 % AUTOMATED IMMATURE GRAN 0.6 % Normal 0.0 - 0.9 [facility] Comment on above: Result Comment: Jaleesa ture Granulocyte Count (IG) includes promyelocytes, myelocytes and metamyelocytes but does not include bands. Percent differential counts (%) should be interpreted in the context of the absolute cell counts (cells/L). Performed By: #### V FPA3 #### [facility] [address] [place] [address] Basophils (Bld) [#/Vol] 0.03 10*3/uL Normal 0.00 - 0.10 [facility] Comment on above: Performed By: #### V FPA3 #### [facility] [address] [place] [address] Basophils/100 WBC (Bld) 0.1 % Normal 0.0 - 2.0 [facility] Comment on above: Performed By: #### V FPA3 #### [facility] [address] [place] [address] Eosinophils (Bld) [#/Vol] 0.01 10*3/uL Normal 0.00 - 0.70 [facility] Comment on above: Performed By: #### V FPA3 #### [facility] [address] [place] [address] Eosinophils/100 WBC (Bld) 0.0 % Normal 0.0 - 6.0 [facility] Comment on above: Performed By: #### V FPA3 #### [facility] [address] [place] [address] Erythrocyte distribution width (RBC) [Ratio] 12.9 % Normal 11.5 - 14.5 [facility] Comment on above: Performed By: #### V FPA3 #### [facility] [address] [place] [address] Hematocrit (Bld) [Volume fraction] 38.3 % Normal 36.0 - 46.0 [facility] Comment on above: Performed By: #### V FPA3 #### [facility] [address] [place] [address] Hemoglobin (Bld) [Mass/Vol] 12.7 g/dL Normal 12.0 - 16.0 [facility] Comment on above: Performed By: #### V FPA3 #### [facility] [address] [place] [address] Lymphocytes (Bld) [#/Vol] 2.89 10*3/uL Normal 1.20 - 4.80 [facility] Comment on above: Performed By: #### V FPA3 #### [facility] [address] [place] [address] Lymphocytes/100 WBC (Bld) 13.5 % Normal 13.0 - 44.0 [facility] Comment on above: Performed By: #### V FPA3 #### [facility] [address] [place] [address] MCHC (RBC) [Mass/Vol] 33.2 g/dL Normal 32.0 - 36.0 [facility] Comment on above: Performed By: #### V FPA3 #### [facility] [address] [place] [address] MCV (RBC) [Entitic vol] 89 fL Normal 80 - 100 [facility] Comment on above: Performed By: #### V FPA3 #### [facility] [address] [place] [address] Monocytes (Bld) [#/Vol] 1.23 10*3/uL High 0.10 - 1.00 [facility] Comment on above: Performed By: #### V FPA3 #### [facility] [address] [place] [address] Monocytes/100 WBC (Bld) 5.7 % Normal 2.0 - 10.0 [facility] Comment on above: Performed By: #### V FPA3 #### [facility] [address] [place] [address] Neutrophils (Bld) [#/Vol] 17.16 10*3/uL High 1.20 - 7.70 [facility] Comment on above: Performed By: #### V FPA3 #### [facility] [address] [place] [address] Neutrophils/100 WBC (Bld) 80.1 % Normal 40.0 - 80.0 [facility] Comment on above: Performed By: #### V FPA3 #### [facility] [address] [place] [address] NUCLEATED RBC 0.0 /100 WBC Normal 0.0-0.0 [facility] Comment on above: Performed By: #### V FPA3 #### [facility] [address] [place] [address] Platelets (Bld) [#/Vol] 401 10*3/uL Normal 150 - 450 [facility] Comment on above: Performed By: #### V FPA3 #### [facility] [address] [place] [address] RBC 4.28 x10E12/L Normal 4.00 - 5.20 [facility] Comment on above: Performed By: #### V FPA3 #### [facility] [address] [place] [address] WBC (Bld) [#/Vol] 21.5 10*3/uL High 4.4 - 11.3 [facility] Comment on above: Performed By: #### V FPA3 #### [facility] [address] [place] [address] COAGULATION SCREENon 09-19- 022 aPTT Coag (Bld) [Time] 29 s Normal 26 - 39 [facility] Comment on above: Result Comment: Note new reference range as of 08/04/2021 at 10:00am. Performed By: #### R ENAL #### [facility] [address] [place] [address] PT Coag (PPP) [Time] 11.5 s Normal 9.8 - 13.4 [facility] Comment on above: Result Comment: Note new reference range as of 08/04/2021 at 10:00am. Performed By: #### R ENAL #### [facility] [address] [place] [address] PT, INR 1.0 Normal 0.9 - 1.1 [facility] Comment on above: Performed By: #### R ENAL #### [facility] [address] [place] [address] Complete Blood Count + Diffe rentialon 09-19-2021 Basophils/100 WBC (Bld) 0.1 % 0.0 - 2.0 [facility] [facility] Work Phone: Erythrocyte distribution width (RBC) [Ratio] 12.9 % See Below [facility] [facility] [facility] Work Phone: Comment on above: Reference Range: 11. 5 - 14.5 Hematocrit (Bld) [Volume fraction] 38.3 % See Below [facility] [facility] Work Phone: Comment on above: Reference Range: 36. 0 - 46.0 Hemoglobin (Bld) [Mass/Vol] 12.7 g/dL See Below [facility] [facility] Work Phone: Comment on above: Reference Range: 12. 0 - 16.0 Lymphocytes/100 WBC (Bld) 13.5 % See Below [facility] [facility] Work Phone: Comment on above: Reference Range: 13. 0 - 44.0 MCHC (RBC) [Mass/Vol] 33.2 g/dL See Below [facility] [facility] Work Phone: Comment on above: Reference Range: 32. 0 - 36.0 MCV (RBC) [Entitic vol] 89 fL 80 - 100 [facility] [facility] [facility] Work Phone: Monocytes/100 WBC (Bld) 5.7 % 2.0 - 10.0 [facility] [facility] Work Phone: Neutrophils/100 WBC (Bld) 80.1 % See Below [facility] [facility] [facility] Work Phone: Comment on above: Reference Range: 40. 0 - 80.0 Platelets (Bld) [#/Vol] 401 10*3/uL 150 - 450 [facility] [facility] [facility] Work Phone: RBC (Bld) [#/Vol] 4.28 {x10E12/L} See Below [facility] [facility] [facility] Work Phone: Comment on above: Reference Range: 4.0 0 - 5.20 WBC (Bld) [#/Vol] 21.5 10*3/uL above high threshold 4.4 - 11.3 [facility] [facility] Work Phone: Complete Blood Count + Differential 0.0 % 0.0 - 6.0 [facility] [facility] Work Phone: Complete Blood Count + Differential 0.6 % 0.0 - 0.9 [facility] [...] Differential 0.03 {x10E9/L} See Below [facility] Work Phone: Comment on above: Reference Range: 0.0 0 - 0.10 Complete Blood Count + Differential 0.01 {x10E9/L} See Below [facility] I Work Phone: Comment on above: Reference Range: 0.0 0 - 0.70 Complete Blood Count + Differential 1.23 {x10E9/L} above high threshold See Below [facility] Work Phone: Comment on above: Reference Range: 0.1 0 - 1.00 Complete Blood Count + Differential 2.89 {x10E9/L} See Below [facility] Work Phone: Comment on above: Reference Range: 1.2 0 - 4.80 Complete Blood Count + Differential 17.16 {x10E9/L} above high threshold See Below [facility] Work Phone: Comment on above: Reference Range: 1.2 0 - 7.70 Daily Progress Note-Neurosjudy stearns 09-19-2021 Daily Progress Note-Neurosurgery Service: Neurosurgery Subjective Data: MORALES LEE is a 46 year old Female who is Hospital Day # 4 and POD #0 for 1. Exploration of spinal fusion;2. Reduction of L4/5 dislocation;2. L5-pelvis instrumented fusion with posterolateral arthrodesis;4. Extension of instrumentation with multiple kwame construct and side connectors. Objective Data: Objective Information: T PRBPSpO2 Value36.27448724/8596% Date/Time09/18 17: 17: 17: 17: 17:40 Range(36.4C [...] ----- Mn/Dy/Year TimeIntakeOutputNet Sep 17, 2021 10:00 [id number] The Intake and Output Totals for the last 24 hours are: IntakeOutputNet [id number] Physical Exam by System: Neurological: A&Ox3 RUE D5, B5, T5, HG5, IO5 LUE D4+, B4+, T4+, HG4+, IO5 RLE HF 4+, KE4+, PF5, DF5 (pain limited) LLE HF 4-, KE4-, PF4, DF5 Recent Lab Results: Results: Recent Arterial Blood Gas Results 09/18/2021 11:48 [id number] 24 h range: ( 219 - 224 ) pH7.44 24 h range: ( 7.44 - 7.45 ) eGM308 24 h range: ( 37 - 40 ) HZ1327 24 h range: ( 100 - 100 ) Base Excess2.8 24 h range: ( 1.8 - 2.8 ) Crrckwfftxb90.2 24 h range: ( 25.7 - 27.2 [...] the note. I personally evaluated the patient [id number] Comments/ Additional Findings Patients postoperative CT scan [...] Assessment an (more content not included)... Normal [facility] - Coagulationon 0 09-19-2021 aPTT [...] esther quiñones as of 08/04/2021 at 10:00am. MAGNESIUMon 09-19-2021 Magnesium [Mass/Vol] 1.59 mg/dL Low 1.60 - 2.40 [facility] Comment on above: Performed By: #### R ENAL #### [facility] [address] [place] [address] PT Evaluation v2-attemptedon 09-19-2021 PT Evaluation v2-attempted Rehab: Info: Mode of Treatmentattempted Time IN11:37 Time OUT11:50 Total Treatment Przsdos01 Evaluation Not PerformedHistory obtained, BP assessed in supine 79/54mmHg, RN notified and redone with 71/51mmHg, will hold PT eval at this time and reattempt as medically appropriate Electronic Signatures: Kaykay Yoo (PT) (Signed 19-Sep-2021 12:14) Authored: Info Last Updated: 19-Sep-2021 12:14 by Kaykay Yoo (PT) Normal [facility] RENAL FUNCTION PANELon 09-19 Albumin [Mass/Vol] 3.4 g/dL Normal 3.4 - 5.0 [facility] Comment on above: Performed By: #### A FPA3 #### [facility] [address] [place] [address] Anion gap [Moles/Vol] 18 mmol/L Normal 10 - 20 [facility] Comment on above: Performed By: #### A FPA3 #### [facility] [address] [place] [address] Calcium [Mass/Vol] 8.3 mg/dL Low 8.6 - 10.6 [facility] Comment on above: Performed By: #### A FPA3 #### [facility] [address] [place] [address] Chloride [Moles/Vol] 100 mmol/L Normal 98 - 107 [facility] Comment on above: Performed By: #### A FPA3 #### [facility] [address] [place] [address] Creatinine [Mass/Vol] 0.60 mg/dL Normal 0.50 - 1.05 [facility] Comment on above: Performed By: #### A FPA3 #### [facility] [address] [place] [address] eGFR FEMALE >90 Normal >90 [facility] Comment on above: Result Comment: CALC ULATIONS OF ESTIMATED GFR ARE PERFORMED USING THE 2020 CKD-EPI STUDY REFIT EQUATION WITHOUT THE RACE VARIABLE FOR THE IDMS-TRACEABLE CREATININE METHODS. https://jasn.asnjournals.org/content//ASN.8637080 988 Performed By: #### A FPA3 #### [facility] [address] [place] [address] Glucose [Mass/Vol] 82 mg/dL Normal 74 - 99 [facility] Comment on above: Performed By: #### A FPA3 #### [facility] [address] [place] [address] HCO3 (Bld) [Moles/Vol] 26 mmol/L Normal 21 - 32 [facility] Comment on above: Performed By: #### A FPA3 #### [facility] [address] [place] [address] Phosphate [Mass/Vol] 2.8 mg/dL Normal 2.5 - 4.9 [facility] Comment on above: Result Comment: The performance characteristics of phosphorus testing in heparinized plasma have been validated by the individual laboratory site where testing is performed. Testing on heparinized plasma is not approved by the FDA; however, such approval is not necessary. Performed By: #### A FPA3 #### [facility] [address] [place] [address] Potassium [Moles/Vol] 4.5 mmol/L Normal 3.5 - 5.3 [facility] Comment on above: Performed By: #### A FPA3 #### [facility] [address] [place] [address] Sodium [Moles/Vol] 139 mmol/L Normal 136 - 145 [facility] Comment on above: Performed By: #### A FPA3 #### [facility] [address] [place] [address] Urea nitrogen [Mass/Vol] 9 mg/dL Normal 6 - 23 [facility] Comment on above: Performed By: #### A FPA3 #### [facility] [address] [place] [address] Albumin [Mass/Vol] 3.6 g/dL Normal 3.4 - 5.0 [facility] Comment on above: Performed By: #### R ENAL #### [facility] [address] [place] [address] Anion gap [Moles/Vol] 13 mmol/L Normal 10 - 20 [facility] Comment on above: Performed By: #### R ENAL #### [facility] [address] [place] [address] Calcium [Mass/Vol] 8.9 mg/dL Normal 8.6 - 10.6 [facility] Comment on above: Performed By: #### R ENAL #### [facility] [address] [place] [address] Chloride [Moles/Vol] 100 mmol/L Normal 98 - 107 [facility] Comment on above: Performed By: #### R ENAL #### [facility] [address] [place] [address] Creatinine [Mass/Vol] 0.51 mg/dL Normal 0.50 - 1.05 [facility] Comment on above: Performed By: #### R ENAL #### [facility] [address] [place] [address] eGFR FEMALE >90 Normal >90 [facility] Comment on above: Result Comment: CALC ULATIONS OF ESTIMATED GFR ARE PERFORMED USING THE 2020 CKD-EPI STUDY REFIT EQUATION WITHOUT THE RACE VARIABLE FOR THE IDMS-TRACEABLE CREATININE METHODS. https://jasn.asnjournals.org/content/early/ASN.3889336 988 Performed By: #### R ENAL #### [facility] [address] [place] [address] Glucose [Mass/Vol] 123 mg/dL High 74 - 99 [facility] Comment on above: Performed By: #### R ENAL #### [facility] [address] [place] [address] HCO3 (Bld) [Moles/Vol] 28 mmol/L Normal 21 - 32 [facility] Comment on above: Performed By: #### R ENAL #### [facility] [address] [place] [address] Phosphate [Mass/Vol] 2.8 mg/dL Normal 2.5 - 4.9 [facility] Comment on above: Result Comment: The performance characteristics of phosphorus testing in heparinized plasma have been validated by the individual laboratory site where testing is performed. Testing on heparinized plasma is not approved by the FDA; however, such approval is not necessary. Performed By: #### R ENAL #### [facility] [address] [place] [address] Potassium [Moles/Vol] 4.3 mmol/L Normal 3.5 - 5.3 [facility] Comment on above: Performed By: #### R ENAL #### [facility] [address] [place] [address] Sodium [Moles/Vol] 137 mmol/L Normal 136 - 145 [facility] Comment on above: Performed By: #### R ENAL #### [facility] [address] [place] [address] Urea nitrogen [Mass/Vol] 8 mg/dL Normal 6 - 23 [facility] Comment on above: Performed By: #### R ENAL #### [facility] [address] [place] [id number] Renal Function Panelon 09-19 Albumin BCP dye [...] [facility] I Work Phone: [phone] Sodium [Moles/Vol] 139 mmol/L 136 - 145 [facility] troen terology-[facility] 6 I Work Phone: Urea nitrogen [Mass/Vol] 9 mg/dL 6 - 23 [facility] I Work Phone: Renal Function Panel >90 >90 [facility]-G astroen terology-[facility] 6 I Work Phone: Comment on above: CALCULATIONS OF IVY MATED GFR ARE PERFORMED USING THE 2020 CKD-EPI STUDY REFIT EQUATION WITHOUT THE RACE VARIABLE FOR THE IDMS-TRACEABLE CREATININE METHODS.https://jasn.asnjournals.org/content/early/ASN .3819401019 ANTIBODY IDENT.on 09-18-2021 ANTIBODY IDENT. Anti-E Normal [facility] Comment on above: Performed By: #### A FPA3 #### [facility] [address] [place] [address] ARTERIAL FULL PANELon 2021 Anion gap [Moles/Vol] 5 mmol/L Low 10 - 25 [facility] Comment on above: Performed By: #### A FPA3 ####[id number] [place] [address] BASE EXCESS-BLOOD 2.8 mmol/L Normal -2.0 - 3.0 [facility] Comment on above: Performed By: #### A FPA3 ####[id number] [place] [address] BICARB, CALCULATED 27.2 mmol/L High 22.0 - 26.0 [facility] Comment on above: Performed By: #### A FPA3 ####[id number] [place] [address] CALCIUM,IONIZED 1.20 mmol/L Normal 1.10 - 1.33 [facility] Comment on above: Performed By: #### A FPA3 ####[id number] [place] [address] Chloride [Moles/Vol] 106 mmol/L Normal 98 - 107 [facility] Comment on above: Performed By: #### A FPA3 ####[id number] [place] [address] Glucose [Mass/Vol] 149 mg/dL High 74 - 99 [facility] Comment on above: Performed By: #### A FPA3 ####[id number] [place] [address] Hematocrit (Bld) [Volume fraction] 38.0 % Normal 36.0 - 46.0 [facility] Comment on above: Performed By: #### A FPA3 ####[id number] [place] [address] HGB,CALCULATED 12.9 g/dL Normal 12.0 - 16.0 [facility] Comment on above: Performed By: #### A FPA3 ####[id number] [place] [address] Lactate [Moles/Vol] 0.9 mmol/L Normal 0.4 - 2.0 [facility] Comment on above: Performed By: #### A FPA3 ####[id number] [place] [address] Oxygen (Bld) [Partial pressure] 219 mm[Hg] High 85 - 95 [facility] Comment on above: Performed By: #### A FPA3 ####[id number] [place] [address] PATIENT TEMPERATURE 37.0 degrees C Normal [facility] Comment on above: Result Comment: NOTE : PATIENT RESULTS ARE NOT CORRECTED FOR TEMPERATURE. Performed By: #### A FPA3 ####[id number] [place] [address] PCO2 40 mmHg Normal 38 - 42 [facility] Comment on above: Performed By: #### A FPA3 ####[id number] [place] [address] pH (Bld) 7.44 [pH] High 7.38 - 7.42 [facility] Comment on above: Performed By: #### A FPA3 ####[id number] [place] [address] Potassium [Moles/Vol] 4.4 mmol/L Normal 3.5 - 5.3 [facility] Comment on above: Performed By: #### A FPA3 ####[id number] [place] [address] SO2 100 % Normal 94 - 100 [facility] Comment on above: Performed By: #### A FPA3 ####[id number] [place] [address] Sodium [Moles/Vol] 134 mmol/L Low 136 - 145 [facility] Comment on above: Performed By: #### A FPA3 ####[id number] [place] [address] Anion gap [Moles/Vol] 7 mmol/L Low 10 - 25 [facility] Comment on above: Performed By: #### A FPA3 #### [facility] [address] [place] [address] BASE EXCESS-BLOOD 1.8 mmol/L Normal -2.0 - 3.0 [facility] Comment on above: Performed By: #### A FPA3 #### [facility] [address] [place] [address] BICARB, CALCULATED 25.7 mmol/L Normal 22.0 - 26.0 [facility] Comment on above: Performed By: #### A FPA3 #### [facility] [address] [place] [address] CALCIUM,IONIZED 1.20 mmol/L Normal 1.10 - 1.33 [facility] Comment on above: Performed By: #### A FPA3 #### [facility] [address] [place] [address] Chloride [Moles/Vol] 105 mmol/L Normal 98 - 107 [facility] Comment on above: Performed By: #### A FPA3 #### [facility] [address] [place] [address] Glucose [Mass/Vol] 174 mg/dL High 74 - 99 [facility] Comment on above: Performed By: #### A FPA3 #### [facility] [address] [place], [place] Hematocrit (Bld) [Volume fraction] 37.0 % Normal 36.0 - 46.0 [facility] Comment on above: Performed By: #### A FPA3 #### [facility] [address] [place] [address] HGB,CALCULATED 12.6 g/dL Normal 12.0 - 16.0 [facility] Comment on above: Performed By: #### A FPA3 #### [facility] [address] [place], [place] Lactate [Moles/Vol] 1.1 mmol/L Normal 0.4 - 2.0 [facility] Comment on above: Performed By: #### A FPA3 #### [facility] [address] [place] [address] Oxygen (Bld) [Partial pressure] 224 mm[Hg] High 85 - 95 [facility] Comment on above: Performed By: #### A FPA3 #### [facility] [address] [place], [place] PATIENT TEMPERATURE 37.0 degrees C Normal [facility] Comment on above: Result Comment: NOTE : PATIENT RESULTS ARE NOT CORRECTED FOR TEMPERATURE. Performed By: #### A FPA3 #### [facility] [address] [place] [address] PCO2 37 mmHg Low 38 - 42 [facility] Comment on above: Performed By: #### A FPA3 #### [facility] [address] [place] [address] pH (Bld) 7.45 [pH] High 7.38 - 7.42 [facility] Comment on above: Performed By: #### A FPA3 #### [facility] [address] [place] [address] Potassium [Moles/Vol] 3.9 mmol/L Normal 3.5 - 5.3 [facility] Comment on above: Performed By: #### A FPA3 #### [facility] [address] [place] [address] SO2 100 % Normal 94 - 100 [facility] Comment on above: Performed By: #### A FPA3 #### [facility] [address] [place] [address] Sodium [Moles/Vol] 134 mmol/L Low 136 - 145 [facility] Comment on above: Performed By: #### A FPA3 #### [facility] [address] [place] [address] CT L Spine without Contrasto n 09-18-2021 CT Lumbar spine limited WO contrast Normal [facility] 6 [facility] Work Phone: Daily Progress Note-Anesthes iologyon 09-18-2021 Daily Progress Note-Anesthesiology Service: Anesthesiology Subjective Data: MORALES LEE is a 46 year old Female who is Hospital Day # 4 and POD #0 for 1. Exploration of spinal fusion;2. Reduction of L4/5 dislocation;2. L5-pelvis instrumented fusion with posterolateral arthrodesis;4. Extension of instrumentation with multiple kwame construct and side connectors. Objective Data: Objective Information: T PRBPSpO2 [id number]/4391% Date/Time09/18 6: 5:561 5:561 5:561 5:56 Range(37C - 37C ) (71 - [...] Recent Arterial Blood Gas Results 09/18/2021 11:48 [id number] 24 h range: ( 219 - 224 ) pH7.44 24 h range: ( 7.44 - 7.45 ) dYV896 24 h range: ( 37 - 40 ) IR0040 24 h range: ( 100 - 100 ) Base Excess2.8 24 h range: ( 1.8 - 2.8 ) Wvgurvmflwc26.2 24 h range: ( 25.7 - 27.2 ) Assessment and Plan: Code Status: Code StatusFull Code Electronic Signatures: Bryan Mora) (Signed 18-Sep-2021 14:47) Authored: Service, Subjective Data, Objective Data, Assessment and Plan, Note Completion Last Updated: 18-Sep-2021 14:47 by Bryan Mora) Normal [facility] Daily Progress Note-Neurosjudy stearns 09-18-2021 Daily Progress Note-Neurosurgery Service: Neurosurgery Subjective Data: MORALES LEE is a 46 year old Female who is Hospital Day # 4. Objective Data: Objective Information: T PRBPSpO2 [id number]/4391% Date/Time09/18 6:041 5: 5:561 5: 5:56 Range(36.6C - 37C ) (71 [...] ----- Mn/Dy/Year TimeIntakeOutputNet Sep 17, 2021 10:00 [id number] Sep 17, 2021 2:00 [id number] The Intake and Output Totals for the [...] the note. I personally evaluated the patient [id number] Electronic Signatures: Fidel Maciel (Resident)) (Signed 18-Sep-2021 06:55) Authored: Service, Subjective Data, Objective Data, Assessment and Plan, Note Completion Lex Frederick) (Signed 19-Sep-2021 10:18) Authored: Note Completion Co-Signer: Service, Subjective Data, Objective Data, Assessment and Plan, Note Completion Last Updated: 19-Sep-2021 10:18 by Lex Frederick) Normal [facility] Laboratory - Chemistry and C hemistry [...] terology-[facility] I Work Phone: CO2 (BldV) [Partial pressure] 42 [...] 35 - 45 [facility] Work Phone: pH (BldV) 7.44 [pH] above [...] g/dL See Below [facility] 6 [facility] Work Phone: Comment on above: Reference Range: 12. 0 - 16.0 Hematocrit (Bld) [Volume fraction] 37.0 % See Below [facility] 6 [facility] Work Phone: Comment on above: Reference Range: 36. 0 - 46.0 Hemoglobin (Bld) [Mass/Vol] 12.6 g/dL See Below [facility] 6 [facility] Work Phone: Comment on above: Reference Range: 12. 0 - 16.0 Hematocrit (Bld) [Volume fraction] 39.0 % See Below [facility] 6 [facility] Work Phone: Comment on above: Reference Range: 36. 0 - 46.0 Hemoglobin (Bld) [Mass/Vol] 13.3 g/dL See Below [facility] 6 [facility] Work Phone: Comment on above: Reference [...] dated 10/07/2020. MRI dated 12/11/2020 ACCESSION NUMBER(S): [id number] ORDERING CLINICIAN: ANGELO JUAREZ TECHNIQUE: Thin cut [...] as stated. This study was interpreted at [facility], [place], [place]. Electronically signed by: BOONE LAO MD Normal [facility] No Panel Informationon 09-18 0.0 {/100_WBC} [...] Respiratory Rate15 breath per minute Blood Pressure Vyyelllx78 mm/Hg Blood Pressure Bzgkblgph28 mm/Hg COVID 19 Results in Last 7 [...] 18-Sep-2021 06:59 by Lian Zuleta (SANAZ) Normal [facility] Radiologyon 09-18-2021 XR Chest Single view [...] RACE VARIABLE FOR THE IDMS-TRACEABLE CREATININE METHODS.https://jasn.asnjournals.org/content/early//ASN .8891969949 TH CHEST; 1 VIEWon 2 TH CHEST; 1 VIEW Patient Name: MORALES LEE STUDY: CHEST; 1 VIEW; 09/18/2021 2:38 pm INDICATION: s/p central line placement (right IJ double lumen) . COMPARISON: Radiograph dated 09/15/2021 ACCESSION NUMBER(S): [id number] ORDERING CLINICIAN: BRYAN MORA FINDINGS: Right IJ [...] Electronically signed by: LORELEI JOHNSTON MD Normal [facility] VENOUS FULL PANELon 09-18-19 22 Anion gap [Moles/Vol] 6 mmol/L Low 10 - 25 [facility] Comment on above: Performed By: #### V FPA3 #### [facility] [address] [place] [address] BASE EXCESS-BLOOD 3.9 mmol/L High -2.0 - 3.0 [facility] Comment on above: Performed By: #### V FPA3 #### [facility] [address] [place] [address] BICARB, CALCULATED 28.5 mmol/L High 22.0 - 26.0 [facility] Comment on above: Performed By: #### V FPA3 #### [facility] [address] [place] [address] CALCIUM,IONIZED 1.17 mmol/L Normal 1.10 - 1.33 [facility] Comment on above: Performed By: #### V FPA3 #### [facility] [address] [place] [address] Chloride [Moles/Vol] 103 mmol/L Normal 98 - 107 [facility] Comment on above: Performed By: #### V FPA3 #### [facility] [address] [place] [address] Glucose [Mass/Vol] 188 mg/dL High 74 - 99 [facility] Comment on above: Performed By: #### V FPA3 #### [facility] [address] [place] [address] Hematocrit (Bld) [Volume fraction] 39.0 % Normal 36.0 - 46.0 [facility] Comment on above: Performed By: #### V FPA3 #### [facility] [address] [place] [address] HGB,CALCULATED 13.3 g/dL Normal 12.0 - 16.0 [facility] Comment on above: Performed By: #### V FPA3 #### [facility] [address] [place] [address] Lactate [Moles/Vol] 1.2 mmol/L Normal 0.4 - 2.0 [facility] Comment on above: Performed By: #### V FPA3 #### [facility] [address] [place] [address] Oxygen (Bld) [Partial pressure] 56 mm[Hg] High 35 - 45 [facility] Comment on above: Performed By: #### V FPA3 #### [facility] [address] [place] [address] PATIENT TEMPERATURE 37.0 degrees C Normal [facility] Comment on above: Result Comment: NOTE : PATIENT RESULTS ARE NOT CORRECTED FOR TEMPERATURE. Performed By: #### V FPA3 #### [facility] [address] [place] [address] PCO2 42 mmHg Normal 41 - 51 [facility] Comment on above: Performed By: #### V FPA3 #### [facility] [address] [place] [address] pH (Bld) 7.44 [pH] High 7.33 - 7.43 [facility] Comment on above: Performed By: #### V FPA3 #### [facility] [address] [place] [address] Potassium [Moles/Vol] 4.1 mmol/L Normal 3.5 - 5.3 [facility] Comment on above: Performed By: #### V FPA3 #### [facility] [address] [place] [address] SO2 91 % High 45 - 75 [facility] Comment on above: Performed By: #### V FPA3 #### [address] [place] [address] Sodium [Moles/Vol] 133 mmol/L Low 136 - 145 [facility] Comment on above: Performed By: #### V FPA3 #### [address] [place] [address] CORONAVIRUS 2019, SCREEN ASY MPTOMATICon 09-17-2021 SARS-CoV-2 (COVID-19) RNA ADRIÁN+probe Ql (Unsp spec) Not detected Normal Not Detected [facility] Comment on above: Result Comment: . This test has received FDA Emergency Use Authorization (EUA) and has been verified by [facility] ([facility]). This test is only authorized for the duration of time that circumstances exist to justify the authorization of the emergency use of in vitro diagnostic tests for the detection of SARS-CoV-2 virus and/or diagnosis of COVID-19 infection under section 564(b)(1) of the Act, 21 U.S.C. 360bbb-3(b)(1), unless the authorization is terminated or revoked sooner. [facility] is certified under CLIA-88 as qualified to perform high complexity testing. Testing is performed in the [facility] located at [address] [place] [address]. SARS-CoV-2/Flu/RSV Multiplex Test: Fact sheet for providers: https://www.fda.gov/media/826721/download Fact sheet for patients: https://www.fda.gov/media/214740/download Performed By: #### C OVSC ####[id number] [place] [address] Lab Specimen Source Nasal, Nasopharyngeal Normal [facility] Comment on above: Performed By: #### C OVSC ####[id number] [place] [address] Coronavirus 2019 RNA by PCR, Screening Asymptomticon 09-17-2021 Coronavirus 2019 RNA by PCR, Screening Asymptomtic Not detected Normal See Below [facility]astro[facility]ology-[facility] 6 [facility] Work Phone: Comment on above: SOURCE: Nasal, Nasop haryngealReference Range: Not Detected.This test has received FDA Emergency Use Authorization (EUA) and has been verified by [facility] ([facility]). This test is only authorized for the duration of time that circumstances exist to justify the authorization of the emergency use of in vitro diagnostic tests for the detection of SARS-CoV-2 virus and/or diagnosis of COVID-19 infection under section 564(b)(1) of the Act, 21 U.S.C. 360bbb-3(b)(1), unless the authorization is terminated or revoked sooner. [facility] is certified under CLIA-88 as qualified to perform high complexity testing. Testing is performed in the [facility] located at [address] [place] [address].SARS-CoV-2/Flu/RSV Multiplex Test: Fact sheet for providers: https://www.fda.gov/media/208791/downloadFact sheet for patients: https://www.fda.gov/media/011718/download Covid 19 Resultson 2 SARS-CoV-2 (COVID-19) RNA [...] You may also be contacted by the [facility] to see if any of your close [...] or Naproxen (Aleve) can also be used. Riph-cpw-lvkzoks cough and cold medicines can be used according to the instructions on the package. Some ethx-ryc-neukbyt medicines also contain acetaminophen. Make sure you [...] water are not available, use alcohol-based hand assembler watch train. Avoid touching your eyes, nose, and mouth [...] 24 mariella (more content not included)... Normal [facility] Daily Progress Note - Psychi vivianyon 09-17-2021 Daily Progress Note - Psychiatry Subjective [...] pain but found it well-controlled on Dilaudid MANAGER PAID and 5/10 mg oxycodone. Pt is interested [...] has been working (cardoza at a [employer]), but she looks forward to his arrival [...] her suboxone. Objective: Objective Information: T PRBPSpO2 Value36.93437431/9095% Date/Time09/17 4: 10: 10: 10: 10:00 Range(35.7C - 36.6C ) (81 - 89 ) (10 - 23 ) (73 - 117 )/ (43 - 90 ) (91% - 96% ) As of 17-Sep-2021 08:00:00, patient is on 3 L/min of oxygen via nasal cannula. Pain reported at 09/17 8:00: 8 = Severe ---- Intake and Output ----- Mn/Dy/Year TimeIntakeOutputNet Sep 17, 2021 6:00 [id number] Sep 16, 2021 2:00 [id number] The Intake and Output Totals for the last 24 hours are: IntakeOutputNet [id number] Mental Status Exam: General: Awake, lying in [...] a Da (more content not included)... Normal [facility] Daily Progress Note-Neurosur jinny 09-17-2021 Daily Progress Note-Neurosurgery Service: Neurosurgery Subjective Data: MORALES LEE is a 46 year old Female who is Hospital Day # 3. Objective Data: Objective Information: T PRBPSpO2 Value35.3730259/4393% Date/Time09/16 18:5409/16 18:5409/16 18:5409/16 18:5409/16 18:54 Range(35.7C - 36.4C ) (81 - 91 ) (15 - 24 ) (87 - 118 )/ (43 - 84 ) (91% - 96% ) As of 16-Sep-2021 18:54:00, patient is on 2 L/min of oxygen via nasal cannula. Pain reported at 09/16 16:34: 10 = Severe ---- Intake and Output ----- Mn/Dy/Year TimeIntakeOutputNet Sep 16, 2021 2:00 [id number] Physical Exam by System: Neurological: A&Ox3 RUE [...] the note. I personally evaluated the patient [id number] Comments/ Additional Findings I again explained to [...] Updated: 19-Sep-2021 10:16 by Lex Frederick) Normal [facility] HCG,URINEon 09-17-2021 Beta HCG ( test) Ql (U) Negative Normal Negative [facility] Comment on above: Performed By: #### A FPA3 #### [facility] [address] [place] [address] Laboratory - Blood bankon ABO group Nom [...] 09-17-2021 REQUEST-LEUKOREDUCED RED CELLS ORDER RECD Normal [facility] Comment on above: Performed By: #### O PHOSPHATIC FERTILIZER SUPERVISOR #### [facility] [address] [place] [address] TYPE + SCREENon 09-17-2021 ABO TYPE O Normal [facility] Comment on above: Performed By: #### T +S #### [facility] [address] [place] [address] RH TYPE Positive Normal [facility] Comment on above: Performed By: #### T +S #### [facility] [address] [place] [id number] Urine Teston 09-17 HCG ( test) Ql (U) Negative Negative [facility] 6 [facility] Work Phone: BNPon 09-16-2021 Natriuretic peptide B (Bld) [Mass/Vol] 37 pg/mL Normal 0 - 99 [facility] Comment on above: Result Comment: . [...] information. Performed By: #### A FPA3 #### [facility] [address] [place] [address] CBC AND DIFFERENTIALon 09-16 % AUTOMATED IMMATURE GRAN 0.5 % Normal 0.0 - 0.9 [facility] Comment on above: Result Comment: Jaleesa ture Granulocyte Count (IG) includes promyelocytes, myelocytes and metamyelocytes but does not include bands. Percent differential counts (%) should be interpreted in the context of the absolute cell counts (cells/L). Performed By: #### C BCDF ####[id number] [place] [address] Basophils (Bld) [#/Vol] 0.04 10*3/uL Normal 0.00 - 0.10 [facility] Comment on above: Performed By: #### C BCDF ####[id number] [place] [address] Basophils/100 WBC (Bld) 0.5 % Normal 0.0 - 2.0 [facility] Comment on above: Performed By: #### C BCDF ####[id number] [place] [address] Eosinophils (Bld) [#/Vol] 0.26 10*3/uL Normal 0.00 - 0.70 [facility] Comment on above: Performed By: #### C BCDF ####[id number] [place] [address] Eosinophils/100 WBC (Bld) 3.0 % Normal 0.0 - 6.0 [facility] Comment on above: Performed By: #### C BCDF ####[id number] [place] [address] Erythrocyte distribution width (RBC) [Ratio] 13.0 % Normal 11.5 - 14.5 [facility] Comment on above: Performed By: #### C BCDF ####[id number] [place] [address] Hematocrit (Bld) [Volume fraction] 42.7 % Normal 36.0 - 46.0 [facility] Comment on above: Performed By: #### C BCDF ####[id number] [place] [address] Hemoglobin (Bld) [Mass/Vol] 14.1 g/dL Normal 12.0 - 16.0 [facility] Comment on above: Performed By: #### C BCDF ####[id number] [place] [address] Lymphocytes (Bld) [#/Vol] 3.17 10*3/uL Normal 1.20 - 4.80 [facility] Comment on above: Performed By: #### C BCDF ####[id number] [place] [address] Lymphocytes/100 WBC (Bld) 37.2 % Normal 13.0 - 44.0 [facility] Comment on above: Performed By: #### C BCDF ####[id number] [place] [address] MCHC (RBC) [Mass/Vol] 33.0 g/dL Normal 32.0 - 36.0 [facility] Comment on above: Performed By: #### C BCDF ####[id number] [place] [address] MCV (RBC) [Entitic vol] 91 fL Normal 80 - 100 [facility] Comment on above: Performed By: #### C BCDF ####[id number] [place] [address] Monocytes (Bld) [#/Vol] 0.47 10*3/uL Normal 0.10 - 1.00 [facility] Comment on above: Performed By: #### C BCDF ####[id number] [place] [address] Monocytes/100 WBC (Bld) 5.5 % Normal 2.0 - 10.0 [facility] Comment on above: Performed By: #### C BCDF ####[id number] [place] [address] Neutrophils (Bld) [#/Vol] 4.55 10*3/uL Normal 1.20 - 7.70 [facility] Comment on above: Performed By: #### C BCDF ####[id number] [place] [address] Neutrophils/100 WBC (Bld) 53.3 % Normal 40.0 - 80.0 [facility] Comment on above: Performed By: #### C BCDF ####[id number] [place] [address] NUCLEATED RBC 0.0 /100 WBC Normal 0.0-0.0 [facility] Comment on above: Performed By: #### C BCDF ####[id number] [place] [address] Platelets (Bld) [#/Vol] 278 10*3/uL Normal 150 - 450 [facility] Comment on above: Performed By: #### C BCDF ####[id number] [place] [address] RBC 4.70 x10E12/L Normal 4.00 - 5.20 [facility] Comment on above: Performed By: #### C BCDF ####[id number] [place] [address] WBC (Bld) [#/Vol] 8.5 10*3/uL Normal 4.4 - 11.3 [facility] Comment on above: Performed By: #### C BCDF ####[id number] [place] [address] COAGULATION SCREENon 022 aPTT Coag (Bld) [Time] 31 s Normal 26 - 39 [facility] Comment on above: Result Comment: Note new reference range as of 08/04/2021 at 10:00am. Performed By: #### V FPA3 #### [facility] [address] [place] [address] PT Coag (PPP) [Time] 11.6 s Normal 9.8 - 13.4 [facility] Comment on above: Result Comment: Note new reference range as of 08/04/2021 at 10:00am. Performed By: #### V FPA3 #### [facility] [address] [place] [address] PT, INR 1.0 Normal 0.9 - 1.1 [facility] Comment on above: Performed By: #### V FPA3 #### [facility] [address] [place] [address] Clinical Event Note-ADMISSIO N CLARIFICATIONon 09-16-2021 Clinical [...] and monitoring for withdrawal. Provider/Team Contact Info-Pager [phone] Electronic Signatures: Sharmni Guaman ([employer] CONSULTANT-FINAL INSPECTOR MOVEMENT ASSEMBLY) (Signed 16-Sep-2021 12:07) Authored: Clinical Event Note Last Updated: 16-Sep-2021 12:07 by Sharmin Guaman ([employer] CONSULTANT-FINAL INSPECTOR MOVEMENT ASSEMBLY) Normal [facility] Complete Blood Count + Diffe rentialon [...] Differential 0.47 {x10E9/L} See Below [facility] I Work Phone: Comment on above: Reference Range: 0.1 0 - 1.00 Complete Blood Count + Differential 3.17 {x10E9/L} See Below [facility] 6 I Work Phone: Comment on above: Reference Range: 1.2 0 - 4.80 Complete Blood Count + Differential 4.55 {x10E9/L} See Below [facility] I Work Phone: Comment on above: Reference Range: 1.2 0 - 7.70 Complete Blood Count + Differential 3.0 % 0.0 - 6.0 [facility] I Work Phone: Complete Blood Count + Differential 0.5 % 0.0 - 0.9 [facility] 6 [facility] Work Phone: Comment on above: Immature Granulocyte Count (IG) includes promyelocytes, myelocytes and metamyelocytes but does not include bands. Percent differential counts (%) should be interpreted in the context of the absolute cell counts (cells/L). Complete Blood Count + Differential 0.0 {/100_WBC} 0.0-0.0 [facility] 6 [facility] Work Phone: Consult-Painon 09-16-2021 Consult-Pain Service: Service: [...] the note. I personally evaluated the patient [id number] Electronic Signatures: Chidi Lamar (Fellow)) (Signed 16-Sep-2021 08:54) Authored: History of Present Illness, Review Family/Social History and ROS, Allergies Aaron Fernandes (Resident)) (Signed 16-Sep-2021 15:24) Authored: Service, History of Present Illness, Review Family/Social History and ROS, Objective, Assessment/Recommendations, Note Completion Chidi Dobbs) (Signed 16-Sep-2021 18:21) Authored: Assessment/Recommendations, Note Completion Co-Signer: Assessment/Recommendations, Note Completion Last Updated: 16-Sep-2021 18:21 by Chidi Dobbs) References: 1. Data Referenced From Consult - Psychiatry 15-Sep-2021 20:42 Normal [facility] Consult-Perioperative Medici neon 09-16-2021 Consult-Perioperativ e [...] penicillin: Unknown Objective: Objective Information: T PRBPSpO2 Value36.31322403/8491% Date/Time09/16 11:13112 12:4909/16 12:4909/16 12: 12:49 Range(36.3C - 36.4C ) (81 - [...] 100 mg (more content not included)... Normal [facility] Cult, Urineon 09-16-2021 Bacteria identified Cx Nom (U) Abnormal [facility] 6 [facility] Work Phone: Daily Progress Note-Neurosur geryon 09-16-2021 Daily Progress Note-Neurosurgery Service: Neurosurgery Subjective Data: MORALES LEE is a 46 year old Female who is Hospital Day # 3. Objective Data: Objective Information: T PRBPSpO2 Value36.5687875/6693% Date/Time09/16 1: 4: 4: 4: 4:00 Range(36.3C [...] the note. I personally evaluated the patient [id number] Comments/ Additional Findings TO OR this Tuesday if medically optimized for T12 - Pelvis fusion and Instrumentation. Pain consult for management regrading Suboxone and pain control in the perioperative period. US LE MRI of the lumbar spine., Lex Frederick MD, [facility], FAANS Director - Minimally Invasive Spine Surgery [facility] Secure Software Assessor of Neurological Surgery [employer] [place], [place] Electronic Signatures: Fidel Maciel (Resident)) (Signed 16-Sep-2021 04:33) Authored: Service, Subjective Data, Objective Data, Assessment and Plan, Note Completion Lex Frederick) (Signed 16-Sep-2021 10:22) Authored: Note Completion Co-Signer: Service, Subjective Data, Objective Data, Assessment and Plan, Note Completion Last Updated: 16-Sep-2021 10:22 by Lex Frederick) Normal [facility] EMR ADDONon 09-16-2021 ADDON CONFIRMATION REQUEST REC'D Normal [facility] Comment on above: Performed By: #### E MRAD ####NO LOCATION NEEDED Laboratory - Coagulationon 0 09-16-2021 aPTT Coag (PPP) [Time] 31 s 26 - 39 [facility] 6 [facility] Work Phone: Comment on above: Note new reference etsher quiñones as of 08/04/2021 at 10:00am. INR Coag (PPP) [Relative time] 1.0 {INR} 0.9 - 1.1 [facility] 6 [facility] Work Phone: PT Coag (PPP) [Time] 11.6 s 9.8 - 13.4 [facility] astroen terology-[facility] 6 [facility] Work Phone: Comment on above: Note new reference esther quiñones as of 08/04/2021 at 10:00am. No Panel Informationon 09-16 37 pg/mL 0 - 99 [facility] hernandesell 6 [facility] Work Phone: Comment on above: . <100 pg/mL - Heart failure pyusutiy280-482 pg/mL - Intermediate probability of acute heart. [...] [Mass/Vol] 3.5 g/dL Normal 3.4 - 5.0 [facility] Comment on above: Performed By: #### R ENAL #### [facility] [address] [place] [address] Anion gap [Moles/Vol] 14 mmol/L Normal 10 - 20 [facility] Comment on above: Performed By: #### R ENAL #### [facility] [address] [place] [address] Calcium [Mass/Vol] 8.9 mg/dL Normal 8.6 - 10.6 [facility] Comment on above: Performed By: #### R ENAL #### [facility] [address] [place] [address] Chloride [Moles/Vol] 101 mmol/L Normal 98 - 107 [facility] Comment on above: Performed By: #### R ENAL #### [facility] [address] [place] [address] Creatinine [Mass/Vol] 0.63 mg/dL Normal 0.50 - 1.05 [facility] Comment on above: Performed By: #### R ENAL #### [facility] [address] [place] [address] eGFR FEMALE >90 Normal >90 [facility] Comment on above: Result Comment: CALC ULATIONS OF ESTIMATED GFR ARE PERFORMED USING THE 2020 CKD-EPI STUDY REFIT EQUATION WITHOUT THE RACE VARIABLE FOR THE IDMS-TRACEABLE CREATININE METHODS. https://jasn.asnjournals.org/content//ASN.7270918 988 Performed By: #### R ENAL #### [facility] [address] [place] [address] Glucose [Mass/Vol] 88 mg/dL Normal 74 - 99 [facility] Comment on above: Performed By: #### R ENAL #### [facility] [address] [place] [address] HCO3 (Bld) [Moles/Vol] 29 mmol/L Normal 21 - 32 [facility] Comment on above: Performed By: #### R ENAL #### [facility] [address] [place] [address] Phosphate [Mass/Vol] 3.4 mg/dL Normal 2.5 - 4.9 [facility] Comment on above: Result Comment: The performance characteristics of phosphorus testing in heparinized plasma have been validated by the individual laboratory site where testing is performed. Testing on heparinized plasma is not approved by the FDA; however, such approval is not necessary. Performed By: #### R ENAL #### [facility] [address] [place] [address] Potassium [Moles/Vol] 3.7 mmol/L Normal 3.5 - 5.3 [facility] Comment on above: Performed By: #### R ENAL #### [facility] [address] [place] [address] Sodium [Moles/Vol] 140 mmol/L Normal 136 - 145 [facility] Comment on above: Performed By: #### R ENAL #### [facility] [address] [place] [address] Urea nitrogen [Mass/Vol] 10 mg/dL Normal 6 - 23 [facility] Comment on above: Performed By: #### R ENAL #### [facility] [address] [place] [address] Renal Function Panelon 09-16 Albumin BCP dye [...] >90 >90 [facility] 6 [facility] Work Phone: Comment on above: CALCULATIONS OF IVY MATED GFR ARE PERFORMED USING THE 2020 CKD-EPI STUDY REFIT EQUATION WITHOUT THE RACE VARIABLE FOR THE IDMS-TRACEABLE CREATININE METHODS.https://jasn.asnjournals.org/content//ASN .7223984941 UA MICROSCOPICon 09-16-2021 BACTERIA 2+ /HPF Abnormal [facility] Comment on above: Performed By: #### U AMIC ####[id number] [place] [address] Mucus Ql (Urine sed) 1+ /LPF Normal [facility] Comment on above: Performed By: #### U AMIC ####[id number] [place] [address] RBC 3 /HPF Normal 0-5 [facility] Comment on above: Performed By: #### U AMIC ####[id number] [place] [address] SQUAMOUS EPITH. CELLS 2 /HPF Normal [facility] Comment on above: Performed By: #### U AMIC ####[id number] [place] [address] WBC 115 /HPF Abnormal 0-5 [facility] Comment on above: Performed By: #### U AMIC ####[id number] [place] [address] URINALYSISon 09-16-2021 Appearance (U) HAZY Normal CLEAR [facility] Comment on above: Performed By: #### U A ####[id number] [place] [address] Bilirubin Ql (U) Negative Normal NEGATIVE [facility] Comment on above: Performed By: #### U A ####[id number] [place] [address] Color (U) YELLOW Normal STRAW,YELLO W [facility] Comment on above: Performed By: #### U A ####[id number] [place] [address] Glucose Ql (U) Negative Normal NEGATIVE [facility] Comment on above: Performed By: #### U A ####[id number] [place] [address] Hemoglobin Ql (U) Negative Normal NEGATIVE [facility] Comment on above: Performed By: #### U A ####[id number] [place] [address] Ketones Ql (U) Negative Normal NEGATIVE [facility] Comment on above: Performed By: #### U A ####[id number] [place] [address] Leukocyte esterase Test strip Ql (U) LARGE (3+) Abnormal NEGATIVE [facility] Comment on above: Performed By: #### U A ####[id number] [place] [address] Nitrite Ql (U) Positive Abnormal NEGATIVE [facility] Comment on above: Performed By: #### U A ####[id number] [place] [address] pH (U) 6.0 [pH] Normal 5.0 - 8.0 [facility] Comment on above: Performed By: #### U A ####[id number] [place] [address] Protein Ql (U) Negative Normal NEGATIVE [facility] Comment on above: Performed By: #### U A ####[id number] [place] [address] Specific gravity (U) [Rel density] 1.011 Normal 1.005 - 1.035 [facility] Comment on above: Performed By: #### U A ####[id number] [place] [address] Urobilinogen (U) [Mass/Vol] 2.0 mg/dL High 0.0 - 1.9 [facility] Comment on above: Result Comment: Due [...] positive urobilinogen. Performed By: #### U A ####[id number] [place] [place] [address] URINE CULTURE,BACTERIALon URINE CULTURE,BACTERIAL PATIENT: MORALES LEE LOCATION: [facility]#: [id number] : 71 AGE: SEX: F ORDERED BY: TOSHA BORJA SOURCE: URINE COLLECTED: 09/16/21 08:42 ANTIBIOTICS AT [facility].: RECEIVED : 09/16/21 17:08 SITE: Esther Kerr U Elena T S URINE CULTURE,BACTERIAL FINAL 09/18/21 09:19 ISOLATE1 : Escherichia coli >100,000 CFU/ML Organism E coli Antibiotic BP INTRP Ampicillin S Ceftriaxone S Cefazolin S Ciprofloxacin R Nitrofurantoin S Gentamicin S Levofloxacin R Piperc/Tazobact S Trimeth/Sulfa S S=SUSCEPTIBLE I=INTERMEDIATE R=RESISTANT SDD=SUSCEPTIBLE DOSE DEPENDENT NS=NONSUSCEPTIBLE X=REPORTED IN ERROR Normal [facility] Comment on above: Performed By: #### A FPA3 #### [facility] [address] [place] [address] Urinalysison 09-16-2021 Color (U) YELLOW See Below [facility] Work Phone: Comment on above: Reference Range: STR AW,YELLOW Glucose Ql (U) Negative NEGATIVE [facility]astroe n [facility]ology[facility] 6 [facility] Work Phone: Ketones Ql (U) Negative NEGATIVE [facility] n [facility] 6 I Work Phone: Leukocyte esterase Test strip Ql (U) LARGE (3+) Abnormal NEGATIVE [facility] I Work Phone: pH (U) 6.0 [pH] 5.0 - 8.0 [facility] Work Phone: Protein (U) [Mass/Vol] Negative NEGATIVE [facility] I Work Phone: RBC (U) [#/Vol] Negative NEGATIVE [facility] en [facility] 6 I Work Phone: Specific gravity (U) [Rel density] 1.011 1 See Below [facility] 6 I Work Phone: Comment on above: Reference Range: 1.0 05 - 1.035 Urinalysis Positive Abnormal NEGATIVE [facility] Work Phone: Urinalysis 2.0 mg/dL above high [...] positive urobilinogen. Urinalysis Negative NEGATIVE [facility] Work Phone: Urinalysis HAZY CLEAR [facility] Work Phone: Urinalysis, Microscopicon Urinalysis, Microscopic 1+ [facility] Work Phone: Urinalysis, Microscopic 2+ Abnormal [facility] Work Phone: Urinalysis, Microscopic 2 {/HPF} [facility] Work Phone: Urinalysis, Microscopic 3 {/HPF} 0-5 [facility] Work Phone: Urinalysis, Microscopic 115 {/HPF} Abnormal 0-5 [facility] Work Phone: VASC LAB Venous Duplex Ultra sound DVTon 09-16-2021 [facility] LAB Venous Duplex Ultrasound DVT [place] [address] and Vascular Lab Report Lower Venous Duplex Ultrasound Patient Name: MORALES Ortiz Physician: [id number] Arjun Romero MD, RPVI Study Date: 09/16/2021 Referring Physician: [id number] HARRISON RAGSDALE MRN/PID: [id number] PCP: Accession/Order#: [id number] CC Report to: Date of : 1975 Technologist: Isai Burleson RVT Gender: F Technologist 2: Admission Status: Outpatient Location Performed: [facility] Diagnosis/ICD: M79.89-Left leg swelling; M79.89-Right leg swelling Procedure/CPT: 52131 Peripheral venous duplex scan for DVT complete-50195 CONCLUSIONS: Right Lower Venous: No evidence of [...] Spontaneous/Phasic Peroneal Yes None PTV Yes None [id number] Arjun Romero MD, RPCONSUELO Final Normal [facility] LAB Venous Duplex Ultra sound for DVTon 09-16-2021 [facility] Venous Duplex Ultrasound for DVT [facility] 6 [facility] Work Phone: No Panel Informationon 09-15 [email or web address]?Ret rieveTestByDateTime?Patient LW=[id number]&Date= 2&Time=19%3a14%3a23%3a00&Te stType=ECG&Site=1&OutputTyp e=PDF&Ext=PDF [facility] I Work Phone: Normal sinus rhythm [facility]-Ga stroen terology-[facility] 6 I Work Phone: Abnormal [facility] 6 I Work Phone: [phone] [facility] 6 I Work Phone: [phone] [facility] 6 I Work Phone: [phone] [facility] [...] [facility] Work Phone: [phone] [facility] Work Phone: [phone] [facility] Work Phone: [phone] [facility] Work Phone: [phone] [facility] 6 I Work Phone: [email or web address]?Ret [email or web address]?Patient XY=[id number]&Date= 2&Time=19%3a14%3a42%3a00&Te stType=ECG&Site=1&OutputTyp e=PDF&Ext=PDF [facility] Work Phone: [phone] [facility] Work Phone: [phone] [facility] Work Phone: 189 1 [facility] Work Phone: 147 1 [facility] Work Phone: 222 1 [facility] Work Phone: 27 1 [facility] Work Phone: 31 1 [facility] Work Phone: 46 1 [facility] Work Phone: 473 1 [facility] Work Phone: 86 1 [facility] Work Phone: Order Reconciliationon 09-15 Order Reconciliation Page 1 Admission Reconciliation Document Reconciliation Type: Admission requested on behalf of Concetta Shi (Advanced Practice Nurse) done by Concetta Shi ([facility]) Admission - Reconciliation: 15-Sep-2021 19:03 by: Fidel Maciel (Resident)) Admission - Reset to Incomplete: 15-Sep-2021 21:47 by: Fidel Maciel ( (Resident)) Admission - Reconciliation: 15-Sep-2021 21:49 by: Fidel Maciel (Resident)) Admission - Reset to Incomplete: 16-Sep-2021 00:41 by: Fidel Maciel ( (Resident)) Admission - Reconciliation: 16-Sep-2021 00:42 by: Fidel Maciel (Resident)) Admission - Reset to Incomplete: 30-Sep-2021 14:18 by: Concetta Shi ([facility]) Admission - Reconciliation: 30-Sep-2021 14:20 by: Concetta Shi ([facility]) Home MedicationsEnteredLast Dose TakenReconciled with current Order Reconciliation Comment/ Additional Information acetaminophen 325 mg oral tablet 2 tab(s) orally every 6 hours, as needed while having post operative [id number] Reviewed and Held Ambien CR 12.5 mg oral tablet, extended release 1 tab(s) oral [id number]-8537 Zolpidem Tablet (AMBIEN)DOSE = 10 mg Oral At BedtimeNotes from Pharmacy: Substitution For Zolpidem (Ambien CR) 12.5 mg at Bedtime Ambien CR 12.5 mg oral tablet, extended release continued as the inpatient order Zolpidem Ankle Foot Orthosis for foot [id number] Reviewed and Held betamethasone topical valerate 0.1% topical cream 1 milena topical prn 15-Sep-2021 EnteredInError Reviewed and Held Bilateral Prafos - orthotics to fit, - ICD 10: R26.0, M21.37, M62.81 30-Sep-2021 Reviewed and Held calcium-vitamin D 500 mg-200 intl units (5 mcg) oral tablet 1 tab(s) orally 4 times a [id number] Calcium 500 mg - Vitamin D 200 [...] times a day, as needed for muscle [id number]-[id number] Cyclobenzaprine Tablet (FLEXERIL)DOSE = 10 mg Oral [...] topical 1% topical gel 1 milena topical [id number]-[id number] Reviewed and Held DULoxetine 30 mg oral [...] 2 tab(s) orally once a day, As [id number]-Jka-5066 Reviewed and Held gabapentin 800 mg oral tablet 1 tab(s) oral 3 times a [id number]-Vgb-5577 Gabapentin Capsule (NEURONTIN)DOSE = 800 mg Oral 3 Times a Day gabapentin 800 mg oral tablet continued as the inpatient order Gabapentin LEFT AFO -Orthotics to fit, ICD 10: M21.8488-Hln-5503 Reviewed and Held lidocaine 5% topical film Apply topically to affected area once a day, As Needed near surgical incision for incisional pain 15-Sep-2021 EnteredInError Reviewed and Held lisinopril 20 mg oral tablet 1 tab(s) oral once a [id number]-Bzt-2350 Lisinopril Tablet (PRINIVIL, ZESTRIL)DOSE = 20 mg [...] patch TransDermal Every 24 HoursNotes from Pharmacy: [facility] nicotine 14 mg/24 hr transdermal film, [...] - available over the counter at any [id number]-6730 Reviewed and Held RIGHT AFO - Orthotics to fit, - M21. Reviewed and Held sennosides-docusate 8.6 mg-50 mg oral tablet 2 tab(s) orally 2 times a day , -Take while using oxycodone for post operative pain to prevent contipation 11-Benjamin-20 (more content not included)... Normal [facility] Radiologyon 09-15-2021 XR Chest Single view Normal [facility] ast[facility]en terology-[facility] moura 6 [facility] Work Phone: TH CHEST 1 VIEWon 09-15-2021 TH CHEST 1 VIEW Patient Name: MORALES LEE STUDY: CHEST 1 VIEW; 09/15/2021 7:21 pm INDICATION: pre-op . COMPARISON: 12/26/2020. ACCESSION NUMBER(S): [id number] ORDERING CLINICIAN: TOSHA BORJA FINDINGS: CARDIOMEDIASTINAL SILHOUETTE: [...] dysfunction. Electronically signed by: Esther PEDERSON MD Normal [facility] Established Visit (Neurosurg ariana)on 09-08-2021 Established [...] Neurosurgery Spine Clinic at the [facility]. She is a very pleasant 46-year-old female, who recently underwent a L1 Vertbrectomy and T6-L4 Fusion with in on 12/26/2020 and is status post 8 [...] obvious instability (more content not included)... Normal [place] No Panel Informationon 09-08 Normal [facility]-Neurosur samsonMiguel Work Phone: Please click on the link [...] and T6-L4 Fusion. COMPARISON: None. ACCESSION NUMBER(S): [id number] ORDERING CLINICIAN: LEX FREDERICK FINDINGS: Fused PA [...] appearance. Electronically signed by: JOSEPH SALAZAR MD [facility] Tobacco Screening.on Fall risk assessment b) One or more fall s in the last year -Nuha Doyle Work Phone: Tobacco use status CPHS a) Yes [employer]-Nuha Doyle Work Phone: Established Visit (Neurosurg ariana)on 05-05-2021 Established Visit (Neurosurgery) History of Present Illness I just had the pleasure of seeing Mrs. Raghav villarreal in the Neurosurgery Spine Clinic at the [facility]. She is a very pleasant 45 -year-old female, who recently underwent a L1 Vertbrectomy and T6-L4 Fusion with me on 12/26/2020 and is status post 4 Months out from her surgery. Today's visit was a virtual visit with the patient at her home and myself at [facility]. She mentions that overall she [...] Invasive Spine Surgery [facility] Secure Software Assessor of Neurological Surgery [employer] [place], [place] Some of this note was completed using Violin Memory voice recognition technology and sometimes the software [...] May 05 2021 9:18PM EST (Author) Normal [place] Established Visit (Neurosurg ariana)on 01-08-2021 Established Visit [...] Neurosurgery Spine Clinic at the [facility]. She is a very pleasant 45 -year-old female, who recently underwent a L1 Vertbrectomy and T6-L4 Fusion with in on 12/26/2020 and is status post 2 [...] Invasive Spine Surgery [facility] Sap Functional Analyst of Neurological Surgery [employer] [place], [place] Some of this note was completed using Net[employer] voice recognition technology and sometimes the software [...] 12:18:23 PM Penicillins Hives;; Recorded By: Lucero Lowyr; 10/28/2020 12:18:23 PM Current Meds Medication NameInstruction [...] Jan 08 2021 1:19PM EST (Author) Normal [place] NR MRI T-SPINE WOon 12-25-19 NR MRI T-SPINE WO Patient Name: MORALES LEE STUDY: MRI T-SPINE WO; 12/24/2020 12:50 pm INDICATION: Lumbar Pain Scoliosis, unspecified Unspecified cord compression. COMPARISON: None. ACCESSION NUMBER(S): [id number] ORDERING CLINICIAN: LEX FREDERICK TECHNIQUE: Multiplanar and [...] spine. Electronically signed by: LENNY HAGER MD [facility] NR MRI L-SPINE WOon 12-12-19 21 NR MRI L-SPINE WO Patient Name: MORALES LEE STUDY: MRI L-SPINE WO; ; 12/11/2020 1:38 pm INDICATION: Lumbar Pain Scoliosis, unspecified Low back pain. COMPARISON: CT lumbar spine from 10/07/2020. MRI lumbar spine from 03/11/2016. ACCESSION NUMBER(S): [id number] ORDERING CLINICIAN: LEX FREDERICK TECHNIQUE: MRI of [...] multiple levels. This study was interpreted at [facility]. Electronically signed by: WESLEY CARBAJAL MD [facility] Initial Visit (Neurosurgery) on 10-28-2020 Initial [...] Status:Resulted - Preliminary,Retrospective By Protocol Authorization; Done: [id number] 12:00AM Reason: Unspecified for Xray Spine, entire thoracic/lumbar, include skull, cervical and sacral spine when performed, 2 or 3 view Radiologist to Determine Optimal Study : Y What are the patient's signs and symptoms? : Lumbar Pain SocHx: Current smoker Tobacco Use Screening; Status:Complete; Done: [id number] Patient Discussion/Summary It was a pleasure to see Ms. LEE at the Neurosurgery Spine Clinic at [facility]. Ms. LEE is a really nice [...] and thoracic kyphosis few years back in [place]. She now has been having severe symptoms [...] evaluated by another spine surgeon at the [facility] who recommended urgent surgery for her [...] even walk (more content not included)... Normal [facility] CNPNon 07-10-2019 CNPN Telephone (SPNMMN) MORALES LEE ([id number]) 1975 F Date Time Provider Department 07/10/19 DIXIE TEE SPALMN During your visit today, we recorded the [...] Quan. Dixie Tee MD CC: Dr. Quan, Ms. Alonso Mcneil RN 07/11/2019 4:42 PM Signed [...] Order(s):CONSULT TO ORTHOPAEDIC SURGERY [19991006] Order #: [id number]: 1 Prescriptions as of 07/10/2019 Sig: LISINOPRIL [...] Status:Closed by DIXIE TEE MD on 07/10/19 [facility] CNOVon 07-09-2019 CNOV Office Visit (SPNSMN ) MORALES LEE ([id number]) 1975 F Date Time Provider Department 07/09/19 9:30 AM STEVENSON QUAN [facility] During your visit today, we recorded the following information about you: Pulse Respiration Blood pressure Weight 89/minute 18/minute 124/74 95.8 kg Height 1.499 m Stevenson Quan MD 07/09/2019 2:56 PM Signed SPINE SURGERY OUTPATIENT CONSULT SERVICE DATE: 07/09/2019 PCP: No primary care provider on file. REFERRING PROVIDER: Dixie Tee MD [id number] [id number] Consult requested for an opinion regarding the [...] file Gets together: Not on file Attends temple service: Not on file Active member of [...] in LUE and LLE. Gait steady. Negative frazier and clonus. Positive LUE Tinel. CT Thoracic [...] with the patient or the patient?s personal public service representative. The patient has elected to schedule surgery at this time or intends to call the office with a surgical date. Shared decision making occurred while obtaining informed consent. 1. Imaging: Thoracic CT Without Contrast 2. Encouraged to call the office with any questions or concerns 3. 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] Other Visit Diagnosis:Spinal stenosis of thoracic region [M48.04] Order(s):CT THORACIC SPINE WO LOISON [[id number]] Order #: [id number] FUTURE Prescriptions as of 07/09/2019 Sig: LISINOPRIL [...] Status:Closed by STEVENSON QUAN MD on 07/09/19 [facility] OBSOLETEon 07-09-2019 OBSOLETE Procedure (EMGMN) MORALES LEE ([id number]) 1975 F Date Time Provider Department 07/09/19 7:45 AM EMG 1 NEUR MAIN EMGMN During your visit today, we recorded the following information about you: Referring Provider: DIXIE TEE [[id number]] Allergies As of Date: 07/09/2019 Noted Allergy Reaction CODEINE 10/24/2010 7 - Swelling PENICILLINS 10/24/2010 7 - Swelling PHENERGAN (PROMETHAZINE HCL) 10/24/2010 7 - Swelling Date Reviewed: 06/20/2019 Reviewed by: Austyn (Rn) MERA Berumen - Fully Assessed Reason for Visit: EMG [2011] Visit Diagnoses:Scoliosis (and kyphoscoliosis), idiopathic [M41.20] Compression fracture of thoracic vertebra, initial encounter, unspecified thoracic vertebral level (HCC) [S22.000A] H/O cervical spine surgery [Z98.890] Lesion of ulnar nerve, left upper limb [G56.22] Lesion of ulnar nerve, right upper limb [G56.21] Order(s):EMG(NEURO/NI) [[id number]] Order #: [id number]: 1 Prescriptions as of 07/09/2019 Sig: LISINOPRIL [...] by JHON EASON MD on 07/09/19 Normal [facility] PROGRESSon 07-09-2019 PROGRESS HNO ID: [id number] Author: Stevenson Quan Service: ? Author Type: Physician Type: Progress Notes Filed: 07/09/2019 2:56 PM Note Text: SPINE SURGERY OUTPATIENT CONSULT SERVICE DATE: 07/09/2019 PCP: No primary care provider on file. REFERRING PROVIDER: Dixie Tee MD [address] [id number] Consult requested for an opinion regarding the [...] file Gets together: Not on file Attends temple service: Not on file Active member of [...] in LUE and LLE. Gait steady. Negative frazier and clonus. Positive LUE Tinel. CT Thoracic [...] with the patient or the patient?s personal public service representative. The patient has elected to schedule surgery at this time or intends to call the office with a surgical date. Shared decision making occurred while obtaining informed consent. 1. Imaging: Thoracic CT Without Contrast 2. Encouraged to call the office with any questions or concerns 3. Follow up: Following above Hannah Gupta APRN.ROSENDO I reviewed the information obtained and documented [...] 09, 2019 TIME: 10:24 AM PAGER: Normal [facility] OT-XR DEXA BONE DENSITY IMPO RTon 07-06-2019 OT-XR DEXA BONE DENSITY IMPORT Images were obtained outside of [facility] [id number] Normal [facility] CASE MGT INIT ASSESon 2018 CASE MGT INIT [facility] HNO ID: [id number] Author: Kimberly (Rn) MERA Dunaway Service: ? Author Type: Registered Nurse Type: Care Mgt Initial Assessment Filed: 06/20/2019 12:25 PM Note Text: CARE MANAGEMENT: ASSESSMENT AND DISCHARGE PLAN SERVICE DATE: 06/20/2019 SERVICE TIME: 12:21 PM PRIMARY CARE PHYSICIAN: No primary care provider on file. 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 No Advance Directive: Current Advance Directive: None Blocking Machine Operator Attempted to Assist with AD Completion: Yes [...] None Has the Patient Been in a Residential Facility in the Past 30 days? N/A SOCIAL: Living Arrangement: Home Lives With: Spouse Financial Resources: Disabled Primary Contact: Extended Emergency Contact Information Primary Emergency Contact: Lars Lee [address] [place] [address] [facility] Mobile Relation: Spouse Supportive: Yes Other [...] 0 I feel financially burdened by my xur-rs-lxwtyt expenses for my prescription medication: Disagree completely [...] with . Does not utilize any DME, jail or community resources. Has d/c transportation via . Anticipate transitional care plan of home, no skilled needs identified at this time. TCC will remain available to assist as needed with transition planning. SIGNATURE: Kimberly Dunaway RN PATIENT NAME: Morales Lee DATE: June 20, 2019 TIME: 12:21 PM PAGER/CONTACT #: [phone] Normal [facility] CBCon 06-20-2019 Erythrocyte distribution width (RBC) [Ratio] 12.6 % Normal 11.5-15.0 [facility] Comment on above: Performed By: #### C BC #### [place] [phone] Hematocrit (Bld) [Volume fraction] 48.7 % High 36.0-46.0 [facility] Comment on above: Performed By: #### C BC #### [place] [phone] Hemoglobin (Bld) [Mass/Vol] 16.8 g/dL High 11.5-15.5 [facility] Comment on above: Performed By: #### C BC #### [place] [phone] MCH (RBC) [Entitic mass] 31.1 pG Normal 26.0-34.0 [facility] Comment on above: Performed By: #### C BC #### [place] [phone] MCHC (RBC) [Mass/Vol] 34.5 g/dL Normal 30.5-36.0 [facility] Comment on above: Performed By: #### C BC #### [place] [phone] MCV (RBC) [Entitic vol] 90.0 fL Normal 80.0-100.0 [facility] Comment on above: Performed By: #### C BC #### [place] [phone] Platelet mean volume (Bld) [Entitic vol] 10.6 fL Normal 9.0-12.7 [facility] Comment on above: Performed By: #### C BC #### [place] [phone] Platelets (Bld) [#/Vol] 334 10*3/uL Normal 150-400 [facility] Comment on above: Performed By: #### C BC #### [place] [phone] RBC (Bld) [#/Vol] 5.41 10*6/uL High 3.90-5.20 [facility] Comment on above: Performed By: #### C BC #### [place] [phone] WBC (Bld) [#/Vol] 10.85 10*3/uL Normal 3.70-11.00 [facility] Comment on above: Performed By: #### C BC #### [place] [phone] CONSULTon 06-20-2019 CONSULT HNO ID: [id number] Author: Evelyn Resendez Service: Pain Management Author [...] substances - including suboxone - from [place]. Of note, pt has followed once in [...] me to leave. She is now leaving AMA. 3. Will sign off SUBJECTIVE CHIEF COMPLAINT: [...] activity was identified. 06/20/2019 by Evelyn Resendez APRN.FINAL INSPECTOR MOVEMENT ASSEMBLY PAST MEDICAL HISTORY Diagnosis Date - Degenerative [...] file Gets together: Not on file Attends temple service: Not on file Active member of [...] the Morales Lee's care. SIGNATURE: Evelyn Resendez APRN.CNP PATIENT NAME: Morales Lee DATE: June 20, 2019 TIME: 8:24 AM PAGER/CONTACT #: [phone] (M-F [id number]) [facility] CT BRAIN WO IVCONon 06-20-20 CT BRAIN WO IVCON * * *Final Report* * * DATE OF EXAM: Jun 20 2019 1:31AM [facility] 0504 - CT BRAIN WO [...] No large cortical infarct or acute hemorrhage. Qa Lead: ADITYA Transcribe Date/Time: Jun 20 2019 1:33A Dictated by : DAVONTE MOY MD This examination was interpreted and the report reviewed and electronically signed by: DAVONTE MOY MD on Jun 20 2019 1:35AM EST [id number] [facility] ECG COMPLETEon 06-20-2019 ECG COMPLETE NAME : MORALES LEE PID : [id number] : 1975 Gender : Female Race : ORD : [id number] Procedure Date : Jun 19 2019 23:57:03 Edit Date : Jun 20 2019 07:51:18 Diagnosis:Sinus rhythm Normal ECG no STEMI 1200a Confirmed by MD ARREDONDO LISA ([id number]), editor & co founder FOREST WALTON ([id number]) on 06/20/2019 7:51:18 AM Ventricular Rate : 85 BPM Atrial Rate : 85 BPM P-R Interval : 137 ms QRS Duration : 91 ms Q-T Interval : 365 ms QTC Calculation(Bazett) : 434 ms P Taiban : 51 degrees R Taiban : -13 degrees T Taiban : 61 degrees Test Reason : Chest Pain Location : 302 : ED AVED-1 Overread By : MD ARREDONDO LISA Edited By : FOREST WALTON Referred By : , Acquired by : [id number], [facility] ED NOTEon 06-20-2019 ED NOTE HNO ID: [id number] Author: Yuki Mckenzie) MERA Cruz Service: ? Author Type: Registered Nurse Type: ED Notes Filed: 06/20/2019 1:40 AM Note Text: Patient got CT, it is still pending and Jessie MESA said ok to transfer to [place] with out results pending. Patient agreeing and understanding of transfer. updated on POC and transfer via telephone. DM here to take patient at this time. Pain is not improved at time of transfer. [facility] ED NOTE HNO ID: [id number] Author: Yuki Mckenzie) MERA Cruz Service: ? Author Type: Registered Nurse Type: ED Notes Filed: 06/20/2019 1:15 AM Note Text: Clean catch urine specimen obtained and sent. [facility] ED NOTE HNO ID: [id number] Author: Yuki Mckenzie) MERA Cruz Service: ? [...] time with getting transferred to another facility. Normal [facility] ED NOTE HNO ID: [id number] Author: Yuki Mckenzie) MREA Cruz Service: ? Author Type: Registered Nurse Type: ED Notes Filed: 06/20/2019 3:28 AM Note Text: Patient stated Valium did not help. She continues to be in pain and upset. She wanted to speak with someone in charge and update on POC. [facility] HISTORY PHYSICALon HISTORY PHYSICAL HNO ID: [id number] Author: Talita Wesley RN Service: General Internal [...] tightness that is constant. Notices a decreased solar designer strength and weakness in left hand. She [...] and refill of this medication. Current 1 1/2 PPD for about 20 years. Denies history of stroke. 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 Seratonin levels were high in [...] pressure, palpitations, leg swelling. Denies hx of DE. GI: Denies nausea, vomiting, diarrhea, abdominal pain, [...] rotation 40/80% Decreased left C5-C7 sensation. Left solar designer strength 2/5. Right solar designer strength 5/5. UE DTR intact and equal. [...] tightness into left arm, weak left hand solar designer strength, and worsening severity of numbness/tingling -Afebrile [...] Needs confirmed with patient pharmacy. Patient uses [facility] in [place], [place]. Patient provided #[phone]. Will call in am to confirm dose. Nicotine Abuse Assessment AND Plan: Smokes 1 1/2 PPD for 20 years. Smoking cessation advised. Nicotine patch ordered. Medication and Non-Pharmacologic VTE Prophylaxis/Anticoagulants VTE Prophylaxis: VTE prophylaxis appropriate SIGNATURE: Talita Wesley APRN.CNP PATIENT NAME: Morales Lee DATE: June 20, 2019 TIME: 2:58 AM PAGER/CONTACT #: U # [phone] [facility] NURSING PROGon 06-20-2019 NURSING PROG HNO ID: [id number] Author: Austyn WilksRn) MERA Berumen Service: Nursing Author Type: Registered Nurse Type: Nursing Progress Note Filed: 06/20/2019 3:10 PM Note Text: Nursing Progress Note Patient Name: Morales Lee Patient Location: / 2 Daily Note:06/20/2019 -pt is upset regarding [...] note was completed by: AUSTYN BERUMEN RN [facility] NURSING PROG HNO ID: [id number] Author: Austyn WilksRn) MERA Berumen Service: Nursing Author Type: Registered Nurse Type: Nursing Progress Note Filed: 06/20/2019 8:10 AM Note Text: Nursing Progress Note Patient Name: Morales Lee Patient Location: /- 2 Daily Note:06/20/2019 -assumed care of patient, pt is requesting her suboxone. We have to call to verify dosage. -MERA Acosta called pharmacy provided by night TRAIN BRAKE OPERATOR and the pharmacy does not open until 9am. We will call back to verify dose later. -Dr. Kwon called to speak with this RN, he will be in to see the patient later today. This note was completed by: AUSTYN BERUMEN RN [facility] NURSING PROG HNO ID: [id number] Author: Guadalupe Mckenzie) MERA Herbert Service: ? Author Type: Registered Nurse Type: Nursing Progress Note Filed: 06/20/2019 4:33 AM Note Text: Nursing Progress Note Patient Name: Morales Lee Patient Location: [id number] Daily Note:AANDO x 3. C/O left [...] note was completed by: Guadalupe Herbert RN [facility] PROGRESSon 06-20-2019 PROGRESS HNO ID: [id number] Author: Sedrick Martin Service: General Internal Medicine Author Type: Physician Type: Progress Notes Filed: 06/20/2019 11:04 AM Note Text: INPATIENT PROGRESS NOTE SERVICE DATE: 06/20/2019 SERVICE TIME: 10:41 AM PRIMARY SERVICE: ROU Subjective CHIEF COMPLAINT: neck pain INTERVAL HPI: [...] rales. Cor:RSR, no murmurs. 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 CIGAR BINDER; as noted on admission. DATA: Diagnostic tests [...] Non-Pharmacologic VTE Prophylaxis/Anticoagulants 06/20/19399 pneumatic compression stockings ([place], [place]) 06/20/19399 activity - mobilize patient ([place], [place]) VTE Prophylaxis: appropriate SIGNATURE: Sedrick Martin MD PATIENT NAME: Morales Lee DATE: June 20, 2019 TIME: 10:41 AM PAGER: [facility] PROGRESS HNO ID: [id number] Author: Sedrick Martin Service: General Internal Medicine Author Type: Physician Type: Progress Notes Filed: 06/20/2019 8:25 AM Note Text: As per Pain Management Consult still pending, I was notified by Pain Management to resume the pt.' s home Suboxone dosage until pt. Seen later today. Normal [facility] Troponin Ton 06-20-2019 Troponin T.cardiac [Mass/Vol] ug/L Normal 0.000-0.029 [facility] Comment on above: Performed By: #### T NT #### [place] [address] Troponin T.cardiac [Mass/Vol] ug/L Normal 0.000-0.029 [facility] Comment on above: Performed By: #### T NT #### [place] [address] Basic Metabolic Panlon 06-19 Anion gap [Moles/Vol] 14 mmol/L Normal -18 [facility] Calcium [Mass/Vol] 10.3 mg/dL High 8.5-10.2 [facility] Chloride [Moles/Vol] 96 mmol/L Low 97-105 [facility] CO2 [Moles/Vol] 29 mmol/L Normal 22-30 [facility] Creatinine [Mass/Vol] 0.59 mg/dL Normal 0.58-0.96 [facility] eGFR- Amer. >60 Normal [facility] GFR/1.73 sq M predicted among non-blacks MDRD (S/P/Bld) [Vol rate/Area] mL/min/{1.73_m2} Normal [facility] Comment on above: Result Comment: [...] GFR. Glucose [Mass/Vol] 114 mg/dL High 74-99 [facility] Comment on above: Result Comment: The [place] Diabetes Association (ADA) provides guidance for cutoff [...] Standards of Medical Care in Diabetes 2016, [place] Diabetes Association. Diabetes Care. 2016.39(Suppl 1). Potassium [Moles/Vol] 3.7 mmol/L Normal 3.7-5.1 [facility] Sodium [Moles/Vol] 139 mmol/L Normal 136-144 [facility] Urea nitrogen [Mass/Vol] 7 mg/dL Normal 7-21 [facility] CBC and Differentialon 06-19 Abs Baso 0.09 k/uL Normal <0.11 [facility] Abs [place] 0.61 k/uL Normal <0.87 [facility] Abs Neut 7.56 k/uL High 1.45-7.50 [facility] Absolute nRBC <0.01 Normal <0.01 [facility] Basophils/100 WBC (Bld) 0.7 % Normal [facility] DTYPE Auto Diff Normal [facility] Eosinophils (Bld) [#/Vol] 0.25 10*3/uL Normal <0.46 [facility] Eosinophils/100 WBC (Bld) 1.9 % Normal [facility] Erythrocyte distribution width (RBC) [Ratio] 12.0 % Normal 11.5-15.0 [facility] Hematocrit (Bld) [Volume fraction] 52.6 % High 36.0-46.0 [facility] Hemoglobin (Bld) [Mass/Vol] 18.0 g/dL High 11.5-15.5 [facility] Lymphocytes (Bld) [#/Vol] 4.67 10*3/uL High 1.00-4.00 [facility] Lymphocytes/100 WBC (Bld) 35.4 % Normal [facility] MCH (RBC) [Entitic mass] 30.0 pG Normal 26.0-34.0 [facility] MCHC (RBC) [Mass/Vol] 34.2 g/dL Normal 30.5-36.0 [facility] MCV (RBC) [Entitic vol] 87.7 fL Normal 80.0-100.0 [facility] Monocytes/100 WBC (Bld) 4.6 % Normal [facility] Neutrophils/100 WBC (Bld) 57.4 % Normal [facility] NRBCs 0.0 /100 WBC Normal 0 [facility] Platelet mean volume (Bld) [Entitic vol] 10.1 fL Normal 9.0-12.7 [facility] Platelets (Bld) [#/Vol] 370 10*3/uL Normal 150-400 [facility] RBC (Bld) [#/Vol] 6.00 10*6/uL High 3.90-5.20 [facility] WBC (Bld) [#/Vol] 13.18 10*3/uL High 3.70-11.00 [facility] ED NOTEon 06-19-2019 ED NOTE HNO ID: [id number] Author: Yuki Mckenzie) MERA Cruz Service: ? Author Type: Registered Nurse Type: ED Notes Filed: 06/20/2019 3:27 AM Note Text: Patient has requested valium, she says that she takes it at home. [facility]ago updated. [facility] ED NOTE HNO ID: [id number] Author: Yuki Mckenzie) MERA Cruz Service: ? Author Type: Registered Nurse Type: ED Notes Filed: 06/20/2019 3:27 AM Note Text: Patient is complaining of nausea. She is requesting her saboxon as well and Biago was updated on request. [facility] ED NOTE HNO ID: [id number] Author: Yuki Mckenzie) MERA Cruz Service: ? Author Type: Registered Nurse Type: ED Notes Filed: 06/19/2019 7:54 PM Note Text: Said that after her surgery in 2016 her left pinky and ring finger are numb but she said lately her other fingers on that hand have been getting numb as well. [facility] ED NOTE HNO ID: [id number] Author: Vanessa Ruiz RN Service: ? Author Type: Registered Nurse Type: ED Notes Filed: 06/19/2019 6:48 PM Note Text: Patient has chronic neck pain for three years. Saw spine doctor 06/12/2019 for the same had x rays. Denies any new injury. States pain goes into left arm. Arrived via wheelchair [facility] ED PROV NOTEon 06-19-2019 ED PROV NOTE HNO ID: [id number] Author: Tracy Arredondo Service: Emergency Medicine Author [...] light touch over bilateral lower extremities. 3/5 solar designer, bicep, tricep strength over LUE. Decreased sensation to light touch over left upper extremity in median, radial, and ulnar nerve distribution. 5/5 solar designer, bicep, tricep strength of R UE. Skin: [...] neurosurgical consult as previous notes from her target protection specialist recommend obtaining EMG and possible further [...] a neurosurgical consult she warrants transfer to [facility] for further management of her condition. We have low suspicion for stroke at this time as pain appears to be radicular in nature and she has had worsening progression of her symptoms with documented notes from spine (Dr. Álvarez) suggesting this worsening pain and numbness. The FINAL INSPECTOR MOVEMENT ASSEMBLY, Talita, at [facility] recommended we obtain a CT brain and she must rule out any acute intercranial abnormality that may be contributing to the patient's symptoms. Therefore, this study was ordered and will be followed up by the night team especially if there is any acute intracranial abnormality. As long as there is no acute intracranial abnormality she will be transferred to [facility] for further evaluation and management of her condition. Patient voiced understanding was in agreement with the above plan. This patient's case was discussed with Dr. Arredondo who personally evaluated the patient supervised her care. The patient was TRANSFERRED to: [facility] Condition at time of disposition: stable SIGNATURE: NORMA Montgomery (Pa) 06/20/19 0026 Attending Note I have personally performed a face to face assessment of the patient and have reviewed the PA/MED ADMIN note. My schofield findings include: History is [...] of 5 strength left upper extremities in solar designer strength as well as biceps and triceps [...] worsening neck pain we will place her [facility] observation for cardiac rule out as well [...] and requested by the observation provider at [facility] as they were concerned about stroke. However I doubt this and did not feel this was necessary however it is currently pending and patient will be transferred to [facility] if this is unremarkable. Signature: Tracy Arredondo DO Date: 06/20/2019 Time: 12:26 AM Tracy Arredondo 06/20/19 0033 Normal [facility] 06-19-2019 Magnesium [Mass/Vol] 2.0 mg/dL Normal 1.7-2.3 [facility] Troponin Ton 06-19-2019 Troponin T.cardiac [Mass/Vol] ug/L Normal 0.000-0.029 [facility] CNOVon 06-12-2019 CNOV Office Visit (SPNMMN ) MORALES LEE ([id number]) 1975 F Date Time Provider Department 06/12/19 8:00 AM DIXIE TEE [facility] During your visit today, we recorded [...] 2005 with mesh - TOTAL ABDOM HYSTERECTOMY 2001 with BSO for endometriosis + abnormal eggs [...] file Gets together: Not on file Attends temple service: Not on file Active member of [...] and symmetric. Plantar response are downgoing. Negative frazier's Spine Range of Motion: limited spine ROM [...] [Z98.890] Order(s):PATIENT PLACED ON SPINE CARE PATH [[id number]] Order #: [id number]: 1 XR SCOLIOSIS PA STAND/LAT 2V [[id number]] Order #: [id number] FUTURE EMG(NEURO/NI) [[id number]] Order #: [id number]: 1 FUTURE CONSULT TO SPINE SURGERY [[id number]] Order #: [id number]: 1 FUTURE Prescriptions as of 06/12/2019 Sig: [...] Status:Closed by DIXIE TEE MD on 06/12/19 [facility] PROGRESSon 06-12-2019 PROGRESS HNO ID: [id number] Author: Zoey Aponte (Rt) Robert Trejo Service: Radiology Author Type: Java Integration Developer Type: Progress Notes Filed: 06/12/2019 10:10 AM Note Text: Radiology Service Progress Note PATIENT NAME: Mroales Lee DATE OF SERVICE: June 12, 2019 [...] RT Daxa June 12, 2019 10:09 AM Normal [facility] PROGRESS HNO ID: [id number] Author: Dixie Tee Service: ? 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 Plantar response are downgoing. Negative frazier's Spine Range of Motion: limited spine ROM [...] June 12, 2019 TIME: 8:12 AM Normal [facility] XR SCOLIOSIS 2V PA STAND/LAT [...] changes and multilevel compression deformities as described. Qa Lead: PSCB Transcribe Date/Time: Jun 12 2019 4:36P Dictated by : CAROLINA MOJICA MD This examination was interpreted and the report reviewed and electronically signed by: CAROLINA MOJICA MD on Jun 12 2019 4:39PM EST [id number] Normal [facility] PROGRESSon 05-14-2019 PROGRESS HNO ID: [id number] Author: Laury Levin Service: ? Author Type: Physician Translator And Interpreter Type: Progress Notes Filed: 05/14/2019 1:26 PM [...] to rule out cubital tunnel syndrome. Normal [facility] PROGRESSon 05-09-2019 PROGRESS HNO ID: [id number] Author: Kathia Kelly Service: ? Author Type: ? Type: Progress Notes Filed: 05/14/2019 1:26 PM Note Text: Patient name: Morales Lee Are you being referred by a [facility] Provider or Pain Management Provider at [facility]? No If answer is YES please schedule directly with surgeon, triage does not need to be completed. Is this a self-referral No If not, who is the Referring Provider: Dr. Hendricks/ [facility] MRI/CT/myelogram within 12 months: Yes If No , please refer to medical spine or PCP to complete above imaging, triage does not need to be completed Imaging viewable in Epic: No If not, please provide [phone] to fax in imaging reports for review. [...] will fax imaging report and op notes. [phone] Normal [facility] CT-CT C-SPINE WO CON IMPORTo n 02-13-2019 CT-CT C-SPINE WO CON IMPORT Images were obtained outside of [facility] [id number] Normal [facility] CT-CT L-SPINE WO CON IMPORTo n 02-13-2019 CT-CT L-SPINE WO CON IMPORT Images were obtained outside of [facility] [id number] Normal [facility] Vital Signs Date Time Vital Sign Value Performing Clinician Facility 06-07-2022 12:48-0400 Diastolic blood pressure 83 mm[Hg] No Pcp Required [facility] 06-07-2022 12:48-0400 Heart rate 67 /min No Pcp Required [facility] 06-07-2022 12:48-0400 Respiratory rate 16 /min No Pcp Required [facility] 06-07-2022 12:48-0400 SaO2% (BldA) [Mass fraction] 96 % No Pcp Required [facility] 06-07-2022 12:48-0400 Systolic blood pressure 148 mm[Hg] No Pcp Required [facility] 01-06-2022 10:51-0400 Blood Pressure Location NATALIA MANNING [facility] 01-06-2022 10:51-0400 Diastolic blood pressure 86 mm[Hg] NATALIA MANNING [facility] 01-06-2022 10:51-0400 Heart rate 86 /min NATALIA MANNING [facility] 01-06-2022 10:51-0400 Respiratory rate 16 /min NATALIA MANNING [facility] 01-06-2022 10:51-0400 Systolic blood pressure 132 mm[Hg] NATALIA MANNING [facility] 09-08-2021 14:15-0500 Body height 149.86 cm No PCP None [facility]- [facility] Work Phone: 09-08-2021 14:15-0500 Body mass index (BMI) [Ratio] 36.96 kg/m2 No PCP None YD-Zuuagjzcawkj-Si uja Work Phone: 09-08-2021 14:15-0500 Body surface area Derived from formula 1.78 m2 No PCP None FG-Nazaahdbmbrj-Fb uja Work Phone: 09-08-2021 14:15-0500 Body weight 83.01 kg No PCP None [facility] Work Phone: 09-08-2021 14:15-0500 Diastolic blood pressure 68 mm[Hg] No PCP None YS-Mfvzhlwpbjmh-Mt uja Work Phone: 09-08-2021 14:15-0500 Heart rate 96 /min No PCP None [facility] Work Phone: 09-08-2021 14:15-0500 Respiratory rate 16 /min No PCP None [facility] -[facility] Work Phone: 09-08-2021 14:15-0500 Systolic blood pressure 115 mm[Hg] No PCP None XV-Zqmezcsmdxwi-Gh uja Work Phone: 09-08-2021 14:15-0500 0 1 No PCP None [facility] Work Phone: Comment on above: [employer] 01-01-2021 16:46-0400 Heart rate 111 /min No Pcp Required [facility] 01-01-2021 16:46-0400 SaO2% (BldA) [Mass fraction] 95 % No Pcp Required [facility] 01-01-2021 14:00-0400 Body temperature 96.8 [degF] No Pcp Required [facility] 01-01-2021 14:00-0400 Diastolic blood pressure 77 mm[Hg] No Pcp Required [facility] 01-01-2021 14:00-0400 Respiratory rate 18 /min No Pcp Required [facility] 01-01-2021 14:00-0400 Systolic blood pressure 114 mm[Hg] No Pcp Required [facility] Encounters Encounter Date Encounter Type Care [...] IVON Rojas Facility:[facility] Start: 12-31-2022 ambulatory SHAIKH MICAH Facility: [place] Start: 12-22-2022 End: 12-22-2022 ambulatory MENDOSA Shirley MICAH Facility:[facility] Start: 12-08-2022 AUDIT No PCP None [facility] [address] [place] Work Phone: Start: 12-08-2022 Chart Update No PCP None [facility]-[place] [facility] [address] [place] Work Phone: Start: 11-26-2022 End: 11-26-2022 Patient encounter procedure Danya Bingham [facility] Start: 11-22-2022 ambulatory SHAIKH Shirley OBRIEN Facilit y:H1 Start: 11-09-2022 End: 11-09-[address] DEVANTE Rojas Facility:[facility] Start: 10-15-2022 End: 10-15-2022 ambulatory KYRA SILVA . Facility:[facility] Start: 09-24-2022 End: 09-24-2022 Patient encounter procedure Danya Bingham [facility] Start: 09-01-2022 Encounter for preprocedural laboratory examination DANYA BINGHAM . [facility] Start: 08-25-2022 End: 08-25-2022 ambulatory SHAIKH Shirley OBRIEN Facility:[facility] Start: 08-24-2022 End: 08-25-2022 ambulatory SHAIKH Shirley OBRIEN Facility:[facility] Start: 08-24-2022 End: 08-25-2022 Encounter for preprocedural laboratory examination SHAIKH Shirley OBRIEN Facility:[facility] Start: 08-21-2022 ambulatory SHAIKH Shirley OBRIEN Facilit y:H1 Start: 07-16-2022 End: 07-16-2022 Patient encounter procedure Danya Bingham [facility] [place] Start: 06-06-2022 End: 06-07-2022 Emergency department patient visit Yony Aguirre [facility] Adult ED [facility] 45 Start: 05-31-2022 End: 05-31-[address] ALEXANDRU SORIA . Facility:[facility] Start: 05-19-2022 End: 05-19-2022 Off-Site Danya Bingham [facility] [place] Start: 05-07-2022 End: 05-07-2022 ambulatory SHAIKH Shirley OBRIEN Facility:[facility] Start: 04-08-2022 End: 04-08-[address] ABHINAV WEBB Facility:[facility] Start: 03-30-2022 End: 03-31-[address] CLIF HUTTON Facility:[facility] Start: 03-07-2022 End: 03-07-[address] ABHINAV WEBB Facility:[facility] Start: 03-06-2022 End: 03-06-2022 ambulatory SHAIKH Shirley OBRIEN Facility:[facility] Start: 02-21-2022 End: 02-21-2022 ambulatory IVON LAWS . Facility:[facility] Start: 02-10-2022 ambulatory DANYA BINGHAM . Facility: [facility] Start: 02-04-2022 End: 02-04-2022 Off-Site Danya Bingham [facility] [place] Start: 01-11-2022 Chart Update No PCP None [facility] [place] Work Phone: Start: 01-11-2022 End: 01-11-2022 Patient encounter procedure Danya Bingham [facility] Start: 01-07-2022 AUDIT No PCP None [facility]-Neurosu rgery-[facility] [place] [address] Work Phone: Start: 01-06-2022 End: 01-06-2022 Patient encounter procedure NATALIA MANNING [facility] Start: 10-13-2021 AUDIT No PCP None [facility] Work Phone: Start: 09-29-2021 AUDIT No PCP None [facility]-Gastroe nterology-[place] [facility] Work Phone: Start: 09-15-2021 End: 10-02-2021 Evaluation and management of inpatient Dr. LEX FREDERICK Facility:[facility] Start: 09-09-2021 AUDIT No PCP None [facility]Neuro[facility] rgery-[facility] Work Phone: Start: 09-08-2021 Office outpatient vi sit 40 minutes No PCP None KF-Sohtcszkzuux-Cpkan Work Phone: Start: 05-05-2021 Postop follow up vis it related to original px No PCP None EJ-Sujrpnkgokqa-LQZZU Work Phone: Start: 12-26-2020 End: 01-01-2021 Evaluation and management of inpatient Lex Frederick [facility] [id number] [id number] Preoperative state No PCP None [facility]-Neuros urgery-[facility] Work Phone: Procedures Date Procedure Procedure Detail Performing Clinician Start: 09-21-[address] EFRAIN FREDERICK Comment on above: Performed By: #### A FPA3 #### [facility] [address] [place] [address] Start: 09-21-[address] EFRAIN FREDERICK Comment on above: Order Comment: CUADRA D MERA ESPINO, 09/21/2021 05:08TEST TYPE + SCREEN WAS CANCELLED, 09/21/2021 05:06 NO PHLEB ID ON TUBE. Result Comment: CALL ED MERA ESPINO, 09/21/2021 05:08 Performed By: #### A FPA3 #### [facility] [address] [place] [address] Start: 09-17-[address] EFRAIN FREDERICK Comment on above: Performed By: #### T +S #### [facility] [address] [place] [address] Start: 12-27-2020 End: 12-28-2020 Release Blood Product-Packed Red Blood Cells Devante Defta Start: 12-26-2020 Renal function 2000 panel - Serum or Plasma Nabil Awan Appendectomy NATALIA NIGEL Cholecystectomy NATALIA PER TRISH Hernia NATALIA MANNING Hysterectomy NATALIA MANNING mylogr NATALIA SCHMIDTRY Plan of Treatment Date Care Activity Detail Author Start: 10-17-2023 End: 10-17-2023 Patient encounter procedure 10/17/2023 6:30 PM EST Office Visit [facility] [address] [place] [id number] Shaikh Obrien MD [address] [place] [id number] [facility] Start: 05-06-2023 Influenza vaccination Influenza Vacc ine (#1) [facility] Start: 11-03-2021 POV, Provider: Lex Frederick, Status: Pen, Time: 2:00 PM POV, Provider: Lex Frederick, Status: Pen, Time: 2:00 PM BG-Bfqoanbmbxoydmgl-Ui lwell 6 [facility] Work Phone: Start: 10-07-2021 Admission to [facility] RNVISIT, Provider: NURSE VISIT ASHLEY 5TH,MGNEUROSURGERY, Status: Pen, Time: 10:15 AM ID-Zvrfgtqzobfstrxn-Pk lwell 6 I Work Phone: Start: 09-18-2021 [facility], Provider: Lex Frederick, Status: Pen, Time: 8:00 AM [facility], Provider: Lex Frederick, Status: Pen, Time: 8:00 AM GL-Xvgoxupblrer-Kubef Work Phone: Start: 01-08-2021 Patient encounter procedure Neurosurgery Miguel Start: 12-31-2020 End: 01-01-2022 [facility] Comment on above: please place at beds geraldine for drain removal Start: 12-26-2020 End: 12-27-2021 Naloxone Injectable 0.4 mg IntraVenous Push Once ; (NARCAN)DOSE = 0.2 mg IntraVenous Push Once, PRN patient is unarousable, and respiratory rate lessClinician Notes: HOLD MANAGER PAID Infusion and notify H.O. immediately Start: 26-Dec-2020 End: 26-Dec-2021 Ordered: 26-Dec-2020 Nabil Awan Intent Comments: HOLD MANAGER PAID Infusion and notify H.O. immediately [facility] Comment on above: HOLD MANAGER PAID Infusion an d notify H.O. immediately Start: 2013 Screening for malignant neoplasm of breast Mammogram [facility] Start: 2003 Screening for malignant neoplasm of cervix [facility] Start: 1994 Screening for malignant neoplasm of cervix Pap Smear [facility] Start: 1973 Screening for malignant neoplasm of colon [facility] Immunizations Immunization Date Immunization Notes Care Provider Fa kimberley 02-22-2020 tetanus toxoid, redu luis diphtheria toxoid, and acellular pertussis vaccine, adsorbed Danya Bingham [facility] 12-05-2018 hepatitis A vaccine, adult dosage Danya Bingham [facility] Payers Date Payer Category Payer Unknown 1975 Unknown [id number] 2.16. [id number] 1975 Unknown [id number] 2.16. [id number] 1975 Unknown [id number] 2.16.84 0.1.298245.3.579.2.593 1975 Unknown [id number] 2.16.84 0.1.201553.3.579.2.593 1975 Unknown [id number] 2.16.84 0.1.911754.3.579.2.593 1975 Unknown [id number] 2.16.84 0.1.594624.3.579.2.593 1975 Unknown [id number] 2.16.84 0.1.290361.3.579.2.593 1975 Unknown [id number] 2.16.84 0.1.158528.3.579.2.593 1975 Unknown [id number] 2.16.84 0.1.112104.3.579.2.593 1975 Unknown [id number] 2.16.84 0.1.715484.3.579.2.593 1975 Unknown [id number] 2.16.84 0.1.196994.3.579.2.593 1975 Unknown [id number] 2.16.84 0.1.532905.3.579.2.593 1975 Unknown [id number] 2.16.84 0.1.682662.3.579.2.593 1973 Unknown [id number] 2.16.84 0.1.598441.3.579.2.593 1973 Unknown [id number] 2.16.84 0.1.628362.3.579.2.593 1973 Unknown [id number] 2.16.84 0.1.260001.3.579.2.593 1973 Unknown [id number] 2.16.84 0.1.560930.3.579.2.593 1975 Unknown [id number] 2.16.84 0.1.958886.3.579.2.593 1975 Unknown [id number] 2.16.84 0.1.678861.3.579.2.593 1975 Unknown [id number] 2.16.8 40.1.737828.3.579.2.1046 1975 Unknown [id number] 2.16.8 40.1.036720.3.579.2.727 1959 Unknown [id number] Social History Date Type Detail Facility [facility] Tobacco smoking consumption unknown [facility] Start: 08-01-2023 End: 08-08-2023 History of drug use History of drug use PE-Adqszwymovcv-TTRN C Work Phone: Start: 01-05-2016 End: 08-01-2023 Tobacco smoking status Smokes tobacco daily (finding) [facility] Comment on above: 1ppd 1ppd Start: 08-08-2023 Sex Assigned At Female [facility] History of tobacco use Cigarette Smoker [facility] Start: 08-08-2023 Alcohol intake Lifetime non-d prasanna (finding) [facility] Start: 1975 Sex Assigned At Not on file [facility] Medical Equipment Procedure Code Equipment Code Equipment Origin al Text Equipment Identifier Dates 2 EA, SubLingual , Daily, Refill(s) 0 Start: 01-05-2016 2 EA, SubLingual , Daily, Refill(s) 0 Start: 01-05-2016 2 EA, SubLingual , Daily, Refill(s) 0 Start: 01-05-2016 Functional Status Date Assessment Result Facility 11-26-2022 Functional Status N/A [facility] 11-11-2022 Functional Status N/A [facility] Functional observable [facility] Mental Status Date Assessment Result Facility 12-29-2020 Cognitive functi ons [id number] [facility] Clinical Notes 12-26-2020 to 11-26-2022 Note [...] 10/01/2017 Document Revised: 12/14/2019 Document Reviewed: 10/01/2017 [employer] Patient Education 2019 Traity. Follow Up Care 10/14/2022 11:11:52 With:Zachery HARKINS, CAROLEE Anderson, URO Address: When: Unknown [facility] 09-23-2022 Hospital Discharg e instructions Patient Education [...] including vitamins, herbs, eye drops, creams, and simd-nkz-zszijpu medicines. Any problems you or family members [...] provider tells you to take them. Taking pyjl-cch-hcjnwfm medicines, vitamins, herbs, and supplements. General instructions [...] Document Reviewed: 10/08/2019 Elsevier Patient Education 2020 Elsevier Inc. Follow Up Care 08/31/2022 10:49:10 With:Zachery HARKINS, CAROLEE Anderson, URO Address: When: Unknown [facility] 07-16-2022 Hospital Discharg e instructions Patient Education [...] nerve stimulation). For women, using a medical chemist to prevent urine leaks. This is a [...] right after experiencing incontinence. General instructions Take nrus-pqm-dvkoort and prescription medicines only as told by [...] 09/29/2005 Document Revised: 09/01/2018 Document Reviewed: 12/01/2017 [employer] Patient Education 2019 Traity. Follow Up Care 06/15/2022 11:30:52 With:Zachery HARKINS, CAROLEE Anderson, URO Address: When: Unknown [facility] 02-04-2022 Hospital Discharg e instructions Patient Education [...] nerve stimulation). For women, using a medical chemist to prevent urine leaks. This is a [...] right after experiencing incontinence. General instructions Take rrnr-fqa-dpkzdxy and prescription medicines only as told by [...] 09/29/2005 Document Revised: 09/01/2018 Document Reviewed: 12/01/2017 [employer] Patient Education 2020 Traity. 02/04/2022 16:23:10 Calorie Counting for Weight Loss [...] 08/22/2006 Document Revised: 05/11/2019 Document Reviewed: 07/22/2017 [employer] Patient Education 2020 Traity. Follow Up Care 02/04/2022 13:28:46 With:Danya Bingham MD, URL, URO Address: When: Unknown [facility] 01-11-2022 Evaluation + Plan note Extrac [...] and Plan Diagnosis Bowel and bladder incontinence (HMT63-FC R32, Billing Diagnosis, Medical). Incontinence without sensory awareness (JQE06-SH N39.42, Working, Medical). Diagnosis Bowel and bladder incontinence (HYB75-YN R32, Billing Diagnosis, Medical). Incontinence without sensory awareness (BES08-CX N39.42, Working, Medical). Addendum by Danya Bingham MD on January 11, 2022 10:23 EDT Post procedure diagnosis: Intrinsic sphincter deficiency, acontractile detrusor [facility]05-09-2022 Hospital Discharge instructions Patient Education 01/11/2022 [...] 01/06/2022 11:41:34 With:Danya Bingham Address: [address] [phone]- [phone] Business (1) When: Unknown Comments:Call for followup appointment in 2-3 weeks With:Danya Bingham Address:Unknown When: Unknown [facility]05-04-2022 Hospital Discharge instructions Patient Education 01/06/2022 [...] clinics. Check with your local health department. [facility], where you would pay only what you can afford. To find one near you, check this website: [email or web address]/ [facility]. These are part of a [...] information Learn more about cervical cancer from: [employer]: www.acog.org/Patients/FAQs/Cervical-Cancer [employer] [employer]: www.cancer.org/cancer/cervicalcancer/ U.S. Centers for Disease [...] 09/05/2016 Document Revised: 09/23/2018 Document Reviewed: 04/19/2017 [employer] Patient Education 2020 Traity. Follow Up Care 11/20/2021 10:16:51 With:NIGEL GREEN, NATALIA Santillan, URL Address: [address] [facility] [place] [address] When:01/13/2022 [facility] 01-28-2022 NoteSend Summary: Discharge Summary Providers: Provider [...] Care - New Vital Signs: T PRBPSpO2 [id number]/6394% Date/Time10/02 8: 8: 8: 8: 8:00 Range(36.1C [...] placement 09/23 Patient transitioned from post op MANAGER PAID to oral pain regimen 09/24 Fitted for [...] or twist. Instead, bend at knees to order picker objects (more content not included)...[facility]01-26-2022 NoteThis report has been cancelled.[facility]01-17-2022 NotePROCEDURE DETAILS Postoperative Diagnosis: lumbar stenosis Surgeon: Dr. Lex Frederick Resident/Fellow/Other Translator And Interpreter: Chery Awan Procedure: posterior L4-L5 decompression posterior [...] Completion Last Updated: 22-Sep-2021 10:54 by Lex Frederick)[facility]01-17-2022 NoteHistory & Physical Reviewed: /Lactating: Are [...] the note. I personally evaluated the patient [id number] Electronic Signatures: Lex Frederick) (Signed 21-Sep-2021 11:50) Authored: Note Completion Co-Signer: History & Physical Reviewed, ERAS, Consent, Note Completion Jaya Mosquera (Resident)) (Signed 21-Sep-2021 02:51) Authored: History & Physical Reviewed, ERAS, Consent, Note Completion Last Updated: 21-Sep-2021 11:50 by Lex Frederick () References: 1. Data Referenced From MRI Safety Screen v2 19-Sep-2021 19:00[facility]01-15-2022 NoteRehab: Info: Mode of Treatmentoccupational therapy; attempted; OT evaluation initiated with home set-up obtained (1st floor set up/ 0 step entry, lives with , tub shower with chair); Pt with low BP upon arrival 79/54. Second BP reading taken at 71/51. RN notified, further evaluation deferred at this time. OT to reattempt when pt medically appropriate. 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 Exploration of spinal [...] performed and the images transferred to the [employer] system for use in intraoperative image-guided computer-assisted [...] using the torque dri (more content not included)...[facility]01-14-2022 NoteThis report has been cancelled.[facility]01-14-2022 NoteHistory & Physical Reviewed: /Lactating: Are [...] the note. I personally evaluated the patient [id number] Electronic Signatures: Fidel Maciel (Resident)) (Signed 17-Sep-2021 22:49) Authored: History & Physical Reviewed, ERAS, Consent, Note Completion Lex Frederick) (Signed 19-Sep-2021 10:17) Authored: Note Completion Co-Signer: History & Physical Reviewed, ERAS, Consent, Note Completion Last Updated: 19-Sep-2021 10:17 by Lex Frederick) References: 1. Data Referenced From MRI Safety Screen v2 17-Sep-2021 11:28[facility]01-11-2022 NoteReferral Information: Consult requested by (Attending [...] be able to m (more content not included)...[facility]01-11-2022 NoteHistory of Present Illness: /Lactating: Are [...] the note. I personally evaluated the patient [id number] Electronic Signatures: Fidel Maciel (Resident)) (Signed 15-Sep-2021 [...] Plan Last Updated: 16-Sep-2021 10:20 by Lex Frederick)[facility]04-23-2021 History of Present illness Narrative* I just had the pleasure of seeing Mrs. Raghav villarreal in the Neurosurgery Spine Clinic at the [facility]. She is a very pleasant 46-year-old female, who recently underwent a L1 Vertbrectomy and T6-L4 Fusion with me on 12/26/2020 and is status post 8 Months out from her surgery. * Patient failure to follow-up after her dnaya were removed for personal reasons and is [...] fact that the goal of the burch dea is to improve her overall functioning and [...] Surgery * [facility] * Secure Software Assessor of Neurological Surgery * [employer] * [place], [place] * Some of this note was completed using Violin [employer] voice recognition technology and sometimes the software misinterprets words. This may include unintended errors with respect to translation of words, typographical errors or grammar errors which may not have been identified prior to finalization of the chart note. Please take this into account when reading this note. EO-[id number]-[id number] Work Phone: [phone]) 599-173104-23-2021 Reason for referral (narrative)* Reason for Referral: Patient s/p posterior bilateral L1 transpedicular decompression, posterior T7-T8, T8-T9, T9-T10, T0-T11, T11-T12, T12-L1 hutton hernandez osteotomies, Posterior T5-L4 instrumentation and fusion [facility] 12/26 [facility]ments Appointment Date:01/07/2022 11:00:00 AM Scheduled Provider: Location:[facility] Appointment Type:Urology CALL PAT FT Appointment Date:01/11/2022 08:00:00 AM Scheduled Provider: Location:[facility] Appointment Type:Urology FT Appointment Date:01/11/2022 09:00:00 AM Scheduled Provider: Location:[facility] Appointment Type:Urology FT [facility] + [facility] [place] [facility]* Neurological: [id number] 5/5 except hg/io4+ble 5/5incision cdiHead/Neck: Ox3, awake, alertBUE 5 prox, HG/IO4+BLE HF/KE/DF/PF/EHL 5 [facility]* Constitutional: in no acute distressSkin: Well perfusedEyes: OU 3RHead/Neck: atraumatic, normocephal icRespiratory/Thorax: airway intact, good chest expansionCardiovascular: normal rate, regular rhythmGastrointestinal: non-tenderNeurological: NAD, [id number] Nerves II-XII: PERRL, EOMI, Face symmetric, Facial SILT, Palate/Tongue midline and symmetric, shoulder shrugs symmetric, hearing intact to finger rubs bilaterallyMotor: RUE D5, B5, T5, HG5, IO5LUE D5, B5, T5, HG5, IO5RLE HF 4+, KE4+, PF4-, DF3LLE HF 4+, KE4+, PF3, DF4-Sensation: SILT throughout all extremitiesPsychological: mood appropriate [facility]* Diagnosis Chronic low back pain, unspecified back pain laterality, unspecified whether sciatica present- Primary Nausea in adult documented in [facility] N[facility] No data available for this section [facility] Discharge instructions* Activity:activity as tolerated. May [...] Certification:Home Care Services Needed: yesSkilled Disciplines Ordered: RN/REGISTERED CLIENT ASSOCIATE, PT, OTFace to Face Encounter Completed: yesDate of Encounter: [id number] Necessity for Homecare (based on clinical findings): [...] washing dishes, & loading the dryer or launch manager until cleared by MD. * Wound Care:Inspect [...] and/or calves. * Follow-Up - Neurosurgeon:Physician/Dept/Service: NeurosurgeonDr Pierre Date/Time: 08-Jan-2021 10:40Location: [facility] [address], [place]Phone Number: [phone]: 2 week postop/wound check visit; Bring Insurance Card and Photo ID [facility] No data available for this section [facility] progress note No data available for this section [facility] reason for referral (narrative) , urinary incontinence, neurogenic bladder, open bladder neck, possible SP tube placement Referred by: Zachery HARKINS, Danya Rhodes [facility] [place] Summary Purpose Family History No Family History [...] section and content) DATE CREATED AUTHOR 06/20/2019 [facility] DATE CREATED AUTHOR AUTHOR'S ORGANIZ ATION 06/20/2019 [facility] DATE CREATED AUTHOR AUTHOR'S ORGANIZ ATION 07/26/2019 [facility] DATE CREATED AUTHOR AUTHOR'S ORGANIZ ATION 12/29/2020 [facility] DATE CREATED AUTHOR AUTHOR'S ORGANIZ ATION 09/16/2021 [facility] DATE CREATED AUTHOR AUTHOR'S ORGANIZ ATION 11/25/2021 [facility] DATE CREATED AUTHOR AUTHOR'S ORGANIZ ATION 12/10/2021 [facility] DATE CREATED AUTHOR AUTHOR'S ORGANIZ ATION 08/06/2022 [facility] DATE CREATED AUTHOR AUTHOR'S ORGANIZ ATION 01/17/2023 [facility] DATE CREATED AUTHOR AUTHOR'S ORGANIZ ATION 06/09/2023 [facility] DATE CREATED AUTHOR AUTHOR'S ORGANIZ ATION 12/29/2023 [facility] <item><item> Privacy Markings (unrecogniz ed section [...] Care Team (unrecognized sect ion and content) 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 [employer] provides no warranty or guarantee of the accuracy or completeness of information in this document.
[2024-01-07 22:15] VITALS: BP 103/66; PULSE 68; TEMP 36.5; O2SAT 99; BMI 35.9
--- NOTE | 2024-01-07 22:50 | ED.FEMALEGU1 ---
HPI - Female Genitourinary General Chief complaint: Urogenital-Female Stated complaint: CATH CAME OUT Time Seen by Provider: 01/07/24 22:41 Source: patient Mode of arrival: Wheelchair Limitations: no limitations History of Present Illness HPI Narrative: female presents complaining that her aden catheter came out again tonight. She otherwise feels well but does have some perigenital itching. No fever or chills or abdominal pain. No hematuria Related Data Home Medications ?Medication ?Instructions ?Recorded ?Confirmed buprenorphine 8 mg-naloxone 2 mg 2.5 film sublingual Q24H 03/01/23 03/30/23 sublingual film bupropion HCl 150 mg 24 hr tablet, 150 mg PO DAILY 03/01/23 03/30/23 extended release cyclobenzaprine 10 mg tablet 10 mg PO Q8H 03/01/23 03/01/23 diazepam 5 mg tablet 5 mg PO Q8H PRN anxiety 03/30/23 03/30/23 furosemide 40 mg tablet 40 mg PO DAILY 03/30/23 03/30/23 gabapentin 800 mg tablet 800 mg PO TID 03/30/23 03/30/23 oxybutynin chloride 15 mg 15 mg PO DAILY 03/30/23 03/30/23 tablet,extended release 24 hr potassium bicarbonate-citric acid 20 meq PO BID 03/30/23 03/30/23 20 mEq effervescent tablet (Effer-K) promethazine 12.5 mg tablet 12.5 mg PO TID PRN nausea and 03/30/23 03/30/23 vomiting tizanidine 4 mg tablet 4 mg PO Q8H PRN muscle spasticity 03/30/23 03/30/23 zolpidem 12.5 mg tablet,extended 12.5 mg PO DAILY 03/30/23 03/30/23 release,multiphase Previous Rx's ?Medication ?Instructions ?Recorded levofloxacin 750 mg tablet 750 mg PO DAILY 7 days #7 tabs 03/30/23 cephalexin 500 mg capsule 500 mg PO QID 10 days #40 caps 09/08/23 cephalexin 500 mg capsule 500 mg PO Q12H 10 days #20 caps 11/21/23 ondansetron 4 mg disintegrating 4 mg PO Q4H PRN nausea and 11/21/23 tablet vomiting 3 days #6 tabs promethazine 25 mg tablet 25 mg PO BID PRN nausea and 11/21/23 vomiting #7 tabs fosfomycin tromethamine 3 gram 3 g PO Q3D 3 doses #1 ea 12/26/23 oral packet Allergies Allergy/AdvReac Type Severity Reaction Status Date / Time codeine Allergy Severe Verified 01/07/24 22:15 Penicillins Allergy Severe Anaphylaxis Verified 01/07/24 22:15 quetiapine [From Seroquel] Allergy Severe Seizure Verified 01/07/24 22:15 Review of Systems ROS Status of ROS 10 or more systems reviewed and unremarkable except as noted in history and below [facility] Social History Smoking status: Current every day smoker Exam Constitutional Vital Signs, click to edit/add: Last Vital Signs Temp 97.7 F 01/07/24 22:15 Pulse 68 01/07/24 22:15 Resp 14 01/07/24 22:15 BP 103/66 01/07/24 22:15 Pulse Ox 99 01/07/24 22:15 O2 Del Method Room Air 01/07/24 22:15 Common normals: no apparent distress, average body habitus, oriented x3, no limitations, healthy appearing and alert HENSD Common normals: normocephalic and head/scalp atraumatic Eye Common normals: EOMs intact bilaterally and conjunctivae normal Respiratory Common normals: normal respiratory effort, no retractions, no use of accessory muscles and clear to auscultation bilaterally Cardio Common normals: regular rate, regular rhythm, S1 normal heart sound and S2 normal heart sound GI Common normals: Normal to inspection, nondistended, normoactive bowel sounds present, soft to palpation and non-tender Back & Pelvis Common normals: no CVA tenderness Extremity Common normals: normal to inspection and full ROM Neuro Common normals: oriented x3, CN's II-XII intact bilaterally, moves all extremities and no focal motor deficits Psych Appearance: grossly normal Course Vital Signs Vital signs: Vital Signs Temperature 97.7 F 01/07/24 22:15 Pulse Rate 68 01/07/24 22:15 Respiratory Rate 14 01/07/24 22:15 Blood Pressure 103/66 01/07/24 22:15 Pulse Oximetry 99 01/07/24 22:15 Oxygen Delivery Method Room Air 01/07/24 22:15 Temperature 97.7 F 01/07/24 22:15 Pulse Rate 68 01/07/24 22:15 Respiratory Rate 14 01/07/24 22:15 Blood Pressure 103/66 01/07/24 22:15 Pulse Oximetry 99 01/07/24 22:15 Oxygen Delivery Method Room Air 01/07/24 22:15 MDM - Female Genitourinary MDM Narrative Medical decision making narrative: patient has chronic indwelling aden. not infrequently her catheter dislodges and has to be replaced. States her Urologist has referred her to a specialist in [place]. She presents tonight because her catheter dislodged again. No other complaint other than mild genital itch. No urinary symptoms. Catheter replaced by nursing staff. Urine collected and sent for culture. patient discharged home to follow up with her urologist Lab Data Labs: Lab Results 01/08/24 Range/Units 00:00 Urine Color Yellow (YELLOW) Urine Clarity Clear (CLEAR) Urine pH >=9.0 A (5.0-9.0) Ur Specific [place] 1.015 (1.005-1.025) Urine Protein 100 A (NEG/TRACE) mg/dL Urine Glucose (UA) Negative (NEGATIVE) mg/dL Urine Ketones Negative (NEGATIVE) mg/dL Urine Occult Blood Large A (NEGATIVE) Urine Nitrite Negative (NEGATIVE) Urine Bilirubin Negative (NEGATIVE) Urine Urobilinogen 1.0 (0.2-1.0) EU/dL Ur Leukocyte Esterase Small A (NEGATIVE) Urine RBC 5-10 A (0-2) #/HPF Urine WBC 10-20 A (NONE SEEN) #/HPF Ur Squamous Epith Cells Few A (NONE/RARE) #/LPF Urine Crystals Seen A (None Seen) #/HPF Amorphous Sediment Few Urine Bacteria Small A (NONE SEEN) #/HPF Urine Casts None seen (NONE SEEN) #/LPF Urine Mucus None seen (NONE SEEN) Ur Culture Indicated? Yes Discharge Plan Discharge Stand Alone Forms: Portal Instructions Chief Complaint: Urogenital-Female Clinical Impression: Urinary catheter (Aden) change required, Aden catheter problem, Retention of urine, unspecified Patient Disposition: Home, Self-Care Prescriptions / Home Meds: No Action diazepam 5 mg tablet 5 mg PO Q8H PRN (Reason: anxiety) furosemide 40 mg tablet 40 mg PO DAILY gabapentin 800 mg tablet 800 mg PO TID oxybutynin chloride 15 mg tablet extended release 24hr 15 mg PO DAILY Effer-K 20 mEq tablet, effervescent 20 meq PO BID promethazine 12.5 mg tablet 12.5 mg PO TID PRN (Reason: nausea and vomiting) tizanidine 4 mg tablet 4 mg PO Q8H PRN (Reason: muscle spasticity) zolpidem 12.5 mg tablet,ext release multiphase 12.5 mg PO DAILY Rx Instructions: HS levofloxacin 750 mg tablet 750 mg PO DAILY 7 Days Qty: 7 0RF bupropion HCl 150 mg tablet extended release 24 hr 150 mg PO DAILY buprenorphine-naloxone 8-2 mg film 2.5 film sublingual Q24H cyclobenzaprine 10 mg tablet 10 mg PO Q8H cephalexin 500 mg capsule 500 mg PO QID 10 Days Qty: 40 0RF cephalexin 500 mg capsule 500 mg PO Q12H 10 Days Qty: 20 0RF promethazine 25 mg tablet 25 mg PO BID PRN (Reason: nausea and vomiting) Qty: 7 0RF ondansetron 4 mg tablet,disintegrating 4 mg PO Q4H PRN (Reason: nausea and vomiting) 3 Days Qty: 6 0RF fosfomycin tromethamine 3 gram packet 3 g PO Q3D Qty: 1 0RF Print Language: Slovak Instructions: Aden Catheter Removal (DC) Referrals: Shaikh Obrien MD [Primary Care Provider] - 1 week Discharge Date/Time: 01/08/24 00:13
[2024-01-08 00:39] LABS: Bilirubin Urine NEGATIVE (NEGATIVE); Blood Urine LARGE (NEGATIVE); Clarity Urine CLEAR (CLEAR); Color Urine YELLOW (YELLOW); Glucose Urine UA NEGATIVE (NEGATIVE); Ketones Urine NEGATIVE (NEGATIVE); Leukocyte Esterase Urine SMALL (NEGATIVE); Nitrite Urine NEGATIVE (NEGATIVE); Protein Urine 100 mg/dL (NEG/TRACE); Specific Gravity Urine 1.015 (1.005-1.025); pH Urine >=9.0 (5.0-9.0)
[2024-01-08 00:41] LABS: Urine Microscopic Indicated YES
[2024-01-08 00:53] LABS: Bacteria Urine SMALL #/HPF (NONE SEEN); Mucus Urine NONE SEEN (NONE SEEN)
[2024-01-08 00:54] LABS: Amorphous Sediment Urine FEW; Cast Seen? NONE SEEN #/LPF (NONE SEEN); Crystals Seen? Seen #/HPF (None Seen); Squamous Epithelial Cell Urine FEW #/LPF (NONE/RARE); Urine Culture Indicated YES
== END 2024-01-08 00:13 | disposition home or self-care (01) ==
PROVIDERS: Emergency Provider Internal Medicine; PCP Internal Medicine
DX: Z46.6 Encounter for fitting and adjustment of urinary device (principal); R33.9 Retention of urine, unspecified; F17.210 Nicotine dependence, cigarettes, uncomplicated; Z79.899 Other long term (current) drug therapy
CPT/HCPCS: 51702; 81001; 87086; 87150; 87186; 99284

== ENCOUNTER 2024-02-13 12:18 | Emergency (ER) | payer BC, SELFPAY ==
[2024-02-13 12:45] VITALS: BP 149/93; PULSE 83; TEMP 36.8; O2SAT 100; BMI 26.7
== END 2024-02-13 14:02 | disposition left against medical advice (07) ==
PROVIDERS: Emergency Provider Emergency Medicine; PCP Internal Medicine
DX: Z53.21 Procedure and treatment not carried out due to patient leaving prior to being seen by health care provider (principal)

== ENCOUNTER 2024-02-16 13:28 | Emergency (ER) | payer BC, SELFPAY ==
[2024-02-16 13:39] VITALS: BP 131/78; PULSE 90; TEMP 37.2; O2SAT 100; BMI 35.0
--- NOTE | 2024-02-16 13:44 | ED_ITS ---
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 She has a chronic indwelling Alvares catheter due to urinary incontinence after a spinal surgery years ago. She is well-known to this emergency department as the Alvares catheter is fall out frequently. She states she has had issues with the Alvares catheter draining since yesterday. She also was seen by her PCP who referred her to the ER for management of wounds to the posterior thighs from pressure. She is currently on antibiotics for strep throat. She has not seen the wound care clinic previously. Related Data Home Medications ?Medication ?Instructions ?Recorded ?Confirmed buprenorphine 8 mg-naloxone 2 mg 2.5 film sublingual Q24H 03/01/23 03/30/23 sublingual film bupropion HCl 150 mg 24 hr tablet, 150 mg PO DAILY 03/01/23 03/30/23 extended release cyclobenzaprine 10 mg tablet 10 mg PO Q8H 03/01/23 03/01/23 diazepam 5 mg tablet 5 mg PO Q8H PRN anxiety 03/30/23 03/30/23 furosemide 40 mg tablet 40 mg PO DAILY 03/30/23 03/30/23 gabapentin 800 mg tablet 800 mg PO TID 03/30/23 03/30/23 oxybutynin chloride 15 mg 15 mg PO DAILY 03/30/23 03/30/23 tablet,extended release 24 hr potassium bicarbonate-citric acid 20 meq PO BID 03/30/23 03/30/23 20 mEq effervescent tablet (Effer-K) promethazine 12.5 mg tablet 12.5 mg PO TID PRN nausea and 03/30/23 03/30/23 vomiting tizanidine 4 mg tablet 4 mg PO Q8H PRN muscle spasticity 03/30/23 03/30/23 zolpidem 12.5 mg tablet,extended 12.5 mg PO DAILY 03/30/23 03/30/23 release,multiphase Previous Rx's ?Medication ?Instructions ?Recorded levofloxacin 750 mg tablet 750 mg PO DAILY 7 days #7 tabs 03/30/23 cephalexin 500 mg capsule 500 mg PO QID 10 days #40 caps 09/08/23 cephalexin 500 mg capsule 500 mg PO Q12H 10 days #20 caps 11/21/23 ondansetron 4 mg disintegrating 4 mg PO Q4H PRN nausea and 11/21/23 tablet vomiting 3 days #6 tabs promethazine 25 mg tablet 25 mg PO BID PRN nausea and 11/21/23 vomiting #7 tabs fosfomycin tromethamine 3 gram 3 g PO Q3D 3 doses #1 ea 12/26/23 oral packet Allergies Allergy/AdvReac Type Severity Reaction Status Date / Time codeine Allergy Severe Verified 02/16/24 13:39 Penicillins Allergy Severe Anaphylaxis Verified 02/16/24 13:39 quetiapine [From Seroquel] Allergy Severe Seizure Verified 02/16/24 13:39 Opioid HPI Opioid Management Most Recent Opioid Data: Last Pain Scale 8 11/21/23 09:41 Review of Systems ROS Constitutional Denies: fever or chills Ears, nose, mouth, and throat Reports: throat pain; Denies: nasal congestion Respiratory Denies: shortness of breath Gastrointestinal Denies: nausea or vomiting Musculoskeletal Reports: back pain; Denies: neck pain Integumentary/Breast Denies: rash Hematologic/Lymphatic Denies: easy bruising or easy bleeding PFSH PFSH Social History Smoking status: Current every day smoker Exam Narrative Exam Narrative: Gen.: Awake, alert, in no distress Head: Normocephalic, atraumatic ENT: Moist mucous membranes Respiratory: No respiratory distress, lungs clear bilaterally Cardio: Regular rate and rhythm Gastrointestinal: Abdomen is soft, nondistended and nontender to palpation Extremities: Macerated wounds of the posterior thighs with no surrounding erythema, no deep wounds or subcutaneous tissue exposure or bony exposure. Psych: Normal mood and affect Neuro: No focal neuro deficit Skin: Warm, dry Constitutional Vital Signs, click to edit/add: Last Vital Signs Temp 98.9 F 02/16/24 13:39 Pulse 90 02/16/24 13:39 Resp 16 02/16/24 13:39 BP 131/78 02/16/24 13:39 Pulse Ox 100 02/16/24 13:39 Course Vital Signs Vital signs: Vital Signs Temperature 98.9 F 02/16/24 13:39 Pulse Rate 90 02/16/24 13:39 Respiratory Rate 16 02/16/24 13:39 Blood Pressure 131/78 02/16/24 13:39 Pulse Oximetry 100 02/16/24 13:39 Temperature 98.9 F 02/16/24 13:39 Pulse Rate 90 02/16/24 13:39 Respiratory Rate 16 02/16/24 13:39 Blood Pressure 131/78 02/16/24 13:39 Pulse Oximetry 100 02/16/24 13:39 Medical Decision Making MDM Narrative Medical decision making narrative: No significant infection of the wounds noted to the posterior thighs and buttocks. Patient with dressings applied in the ER, Alvares catheter changed and she is referred to the wound care clinic. Follow-up with PCP and wound care and return to the ER if symptoms change or worsen. 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 Medical Records Medical records reviewed: Yes I reviewed the patient's medical records Discharge Plan Discharge Stand Alone Forms: Portal Instructions Chief Complaint: Urogenital-Female Clinical Impression: Urinary catheter (Alvares) change required, Pressure sore Patient Disposition: Home, Self-Care Time of Disposition Decision: 14:04 Condition: Good Prescriptions / Home Meds: No Action diazepam 5 mg tablet 5 mg PO Q8H PRN (Reason: anxiety) furosemide 40 mg tablet 40 mg PO DAILY gabapentin 800 mg tablet 800 mg PO TID oxybutynin chloride 15 mg tablet extended release 24hr 15 mg PO DAILY Effer-K 20 mEq tablet, effervescent 20 meq PO BID promethazine 12.5 mg tablet 12.5 mg PO TID PRN (Reason: nausea and vomiting) tizanidine 4 mg tablet 4 mg PO Q8H PRN (Reason: muscle spasticity) zolpidem 12.5 mg tablet,ext release multiphase 12.5 mg PO DAILY Rx Instructions: HS levofloxacin 750 mg tablet 750 mg PO DAILY 7 Days Qty: 7 0RF bupropion HCl 150 mg tablet extended release 24 hr 150 mg PO DAILY buprenorphine-naloxone 8-2 mg film 2.5 film sublingual Q24H cyclobenzaprine 10 mg tablet 10 mg PO Q8H cephalexin 500 mg capsule 500 mg PO QID 10 Days Qty: 40 0RF cephalexin 500 mg capsule 500 mg PO Q12H 10 Days Qty: 20 0RF promethazine 25 mg tablet 25 mg PO BID PRN (Reason: nausea and vomiting) Qty: 7 0RF ondansetron 4 mg tablet,disintegrating 4 mg PO Q4H PRN (Reason: nausea and vomiting) 3 Days Qty: 6 0RF fosfomycin tromethamine 3 gram packet 3 g PO Q3D Qty: 1 0RF Print Language: Barbadian Instructions: Acute Wounds (ED) Additional Instructions: [facility] tel:[phone] Referrals: Shaikh Obrien MD [Primary Care Provider] - 1 week
[2024-02-16 15:32] VITALS: BP 122/76; PULSE 88; O2SAT 100
== END 2024-02-16 15:33 | disposition home or self-care (01) ==
PROVIDERS: Emergency Provider Student in an Organized Health Care Education/Training Program; PCP Internal Medicine
DX: Z46.6 Encounter for fitting and adjustment of urinary device (principal); L89.899 Pressure ulcer of other site, unspecified stage; F17.200 Nicotine dependence, unspecified, uncomplicated; R32 Unspecified urinary incontinence; Z87.440 Personal history of urinary (tract) infections
CPT/HCPCS: 51702; 99283

== ENCOUNTER 2024-03-29 08:13 | Emergency (ER) | payer BC, SELFPAY ==
[2024-03-29 08:19] VITALS: BP 131/79; PULSE 86; TEMP 36.6; O2SAT 97; BMI 35.9
--- OUTSIDE RECORDS SUMMARY | 2024-03-29 08:24 | XMS_ITS | CCD ---
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 LEX FREDERICK Admitting Unava ilable Dr. LEX FREDERICK Attending Unava ilable Patient, Unavailable Referring Unavailable Timothy, Dr. Bhakta Attending Unavailable FAKERRI, MENDOSA H Primary Care Unavailable PÉREZ PATINO Attending Unavailable PÉREZ PATINO Admitting Unavailable JON, DR ABHINAV Livingston Attending Unavailabl e FAKERRI, MENDOSA H Primary Care Unavailable DR ABHINAV WEBB Admitting Unavailabl jacque WEBB, DR ABHINAV Livingston Consulting UnavailDR CLIF Cotton Admitting Unavailable DR CLIF HUTTON Consulting Unavailable FABillyWAD, MENDOSA H Primary Care Unavailable DR CLIF [...] REINECK, DR ABHINAV Livingston Attending Unavailabl e [facility] Primary Care Unavailable JON, DR ABHINAV Livingston Admitting Unavailabl e REINECK, DR ABHINAV Livingston Consulting Unavailabl e VETO ., IVON Admitting Unavailable VETO ., IVON Attending Unavailable [facility] Primary Care Unavailable PATRICKDEBORAH SHARIF Consulting Unavailable [facility] Primary Care Unavailable REINMAXINE, DR ABHINAV Livingston Admitting Unavailabl e REINECK, DR ABHINAV Livingston Consulting Unavailabl e REINECK, DR ABHINAV Livingston Attending Unavailabl e HAY ., DR LOW Admitting Unavailable [facility] Primary Care Unavailable HAY ., DR LOW Attending Unavailable ZIEBER, DR ENRIQUE Santana Consulting Unavailable HAY ., DR LOW Consulting Unavailable LUE ., DANYA Aponte Admitting Unavailable LUE ., DANYA Aponte Attending Unavailable [facility] Unavailable [facility] Primary Care Unavailable LUE ., DANYA M Admitting Unavailable LUE ., DANYA Aponte Consulting Unavailable LUE ., DANYA Aponte Attending Unavailable CANDICE MATTA Consulting Unava RACHEL Oconnor Consulting Unavailable DIAB ., KYRA Admitting Unavailable [facility] Primary Care Unavailable DIAB ., KYRA Attending Unavailable GRECHNY .BONITA Consulting [facility]availabl e [facility] Unavailable LUE ., DANYA M Admitting Unavailable LUE ., DANYA Aponte Consulting Unavailable LUE ., DANYA Aponte Attending Unavailable PAY ., DR RODRIGUEZ Admitting Unavailable PAY ., DR RODRIGUEZ Consulting Unavailable [facility] Primary Care Unavailable PAY ., DR RODRIGUEZ Attending Unavailable [facility] Primary Care Unavailable JON, DR ABHINAV Livingston Admitting Unavailrenee e JON, DR ABHINAV Livingston Consulting Unavailabl e JON, DR ABHINAV Livingston Attending Unavailabl KORIN Mccarthy Consulting Unavailable Dr. Lex Frederick Attending Kiana Obrien [facility] Primary [facility] Care Unavailable LueDanya. Attending Unavailable Allergies Allergy Classification Reported Allergen(s) Allergy Type Date of Onset Reaction(s) Facility Opioid Agonists (1 source) Codeine Drug Allergy [facility] Penicillins (antibiotic) (1 source) Penicillin Drug Allergy [facility] QUEtiapine (1 source) QUEtiapine Drug Allergy [facility] (20 sources) Codeine; Translations: [Codeine] Drug Allergy 3 Hives [facility] Work Phone: (20 sources) Penicillins; Translations: [Penicillins] Allergy to drug (finding) Hives, Unknown [facility]: (8 sources) Promethazine; Translations: [promethazine] Drug Allergy [facility] (1 source) QUEtiapine Drug Allergy Seizures [facility] (2 sources) Codeine Drug Allergy 3 [facility] (3 sources) gabapentin; Translations: [Neurontin] Drug Allergy [facility] (1 source) Levamisole Drug Allergy [facility] (1 source) Morphine Drug Allergy 0 [facility] (2 sources) Penicillins Drug allergy (disorder) 3 [facility] (1 source) QUEtiapine Drug Allergy 3 [facility] (1 source) Penicillins Drug Allergy 3 Hives, GI intolerance [facility] (1 source) QUEtiapine Drug Allergy 3 Unknown [facility] Medications Current Medications Medication Drug Class(es) [...] 2 cap(s), Refills(s) 0, [facility]: [id number], 156, cm, 07/16/22 10:58:00 EST, Height/Length Dosing, [...] tab(s), Refills(s) 0, [facility]: [facility] [facility], 156, cm, 01/06/22 10:53:00 EDT, Height/Length [...] Allowed docusate sodium 50 mg / sennosides, custodial 8.6 mg oral tablet (2 sources) Start: [...] Active Start: 09-30-2021 take 1 capsule by [facility] once daily DULoxetine 30 mg oral [...] Ordered take 1 tablet by marlen th three times daily gabapentin 800 mg oral [...] Daily, # 30 tab(s), Refills(s) 3, Pharmacy: [address], 156, cm, 02/04/22 15:47:00 EDT, Height/Length Dosing, 78, kg, 02/04/22 15:47:00 EDT, Weight Dosing Start Date: 02/25/22 Status: Ordered nystatin 100 unt/mg topical powder (1 source) Polyene Antifungal Start: 03-07-2023 Nyamyc 396998 UNIT/GM powder Apply 1 application topically in [...] Daily, # 30 tab(s), Refills(s) 11, Pharmacy: [facility] #[id number], 156, cm, 07/16/22 10:58:00 EST, Height/Length Dosing, 78, kg, 07/16/22 10:58:00 EST, Weight Dosing Start Date: 10/04/22 Status: Ordered Start: 07-16-2022 take 1 tablet by marlen once daily oxybutynin 10 mg ER Tab 10 mg = 1 tab(s), Oral, Daily, # 30 tab(s), Refills(s) 11, Pharmacy: [facility] #[id number], 156, cm, 07/16/22 10:58:00 EST, Height/Length Dosing, 78, kg, 07/16/22 10:58:00 EST, Weight Dosing Start Date: 07/16/22 Status: Ordered Start: 03-10-2022 take 1 tablet by marlen once daily oxybutynin 10 mg ER Tab 10 mg = 1 tab(s), Oral, Daily, # 30 tab(s), Refills(s) 3, Pharmacy: [facility] [id number] [facility], 156, cm, 02/04/22 15:47:00 EDT, Height/Length [...] 07-Jan-2021 Generic Substitution Allowed polyethylene glycol 3350 85275 mg powder for oral solution (2 sources) [...] Daily, # 30 cap(s), Refills(s) 0, Pharmacy: [address], 156, cm, 01/07/22 13:43:00 EDT, Height/Length [...] Start: 01-05-2016 take 1 tablet by marlen once daily at bedtime as needed for [...] 2 cap(s), Refills(s) 0, [facility]: [facility][id number], 156, cm, 11/26/22 8:15:00 EDT, Height/Length Dosing, [...] Discontinued Generic Substitution Allowed polyethylene glycol 3350 543231 mg / potassium chloride 2970 mg / sodium bicarbonate 6740 mg / sodium chloride 5860 mg / sodium sulfate 14728 mg powder for oral solution (8 sources) [...] spine] Episodic Other aftercare (2 sources) Other long-term (current) drug therapy; 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 Physician Orderon 12-14-2023 Physician Order [id number]#1.00TIFF [facility] ED Note-Physicianon 03-14-20 ED Note-Physician [id number]#1.00CD:127 [facility] ED Note-Physicianon 01-23-20 ED Note-Physician [id number]#1.00CD:127 [facility] ED Note-Physician [id number]#1.00CD:127 [facility] Lab Reportson 01-22-2023 Lab Reports [id number]#1.00CD:127 [facility] Patient Correspondenceon Patient Correspondence [id number]#1.00CD:127 [facility] CULTURE URINEon 01-16-2023 CULTURE URINE Isolate [...] R F Nitrofurantoin <=16 S F Normal [facility] Comment on above: Performed By: #### U MICRO, ERUR #### [facility] [address] [place] [address] Dr. Alfredo Lizama CBC AUTO DIFFon 01-13-2023 BASO # 0.1 103/ul Normal 0.0-0.1 [facility] Comment on above: Performed By: #### U MICRO, ERUR #### [facility] [address] [place] [address] Dr. Alfredo Lizama Basophils/100 WBC (Bld) 0.7 % Normal 0.2-2.0 [facility] Comment on above: Performed By: #### U MICRO, ERUR #### [facility] [address] [address] [address] Alfredo Lizama EO # 0.3 103/ul Normal 0.0-0.7 [facility] Comment on above: Performed By: #### U MICRO, ERUR #### [facility] [address] [place] [address] Dr. Alfredo Lizama Eosinophils/100 WBC (Bld) 3.2 % Normal 0.9-7.0 [facility] Comment on above: Performed By: #### U MICRO, ERUR #### [facility] [address] [place] [address] Dr. Alfredo Lizama Erythrocyte distribution width (RBC) [Ratio] 13.0 % Normal 11.0-15.0 [facility] Comment on above: Performed By: #### U MICRO, ERUR #### [facility] [address] [place] [address] Dr. Alfredo Lizama Hematocrit (Bld) [Volume fraction] 43.2 % Normal 36.0-48.0 [facility] Comment on above: Performed By: #### U MICRO, ERUR #### [facility] [address] [place] [address] Dr. Alfredo Lizama Hemoglobin (Bld) [Mass/Vol] 14.1 g/dL Normal 12.0-16.0 [facility] Comment on above: Performed By: #### U MICRO, ERUR #### [facility] [address] [place] [address] Dr. Alfredo Lizama IG # 0.02 10e3/ul Normal 0.00-0.03 [facility] Comment on above: Performed By: #### U MICRO, ERUR #### [facility] [address] [place] [address] Dr. Alfredo Lizama IG % 0.2 % Normal 0.0-0.5 [facility] Comment on above: Performed By: #### U MICRO, ERUR #### [facility] [address] [place] [address] Dr. Alfredo Lizama LYMPH # 3.0 103/ul Normal 1.2-3.8 [facility] Comment on above: Performed By: #### U MICRO, ERUR #### [facility] [address] [place] [address] Dr. Alfredo Lizama Lymphocytes/100 WBC (Bld) 35.6 % Normal 20.5-60.0 [facility] Comment on above: Performed By: #### U MICRO, ERUR #### [facility] [address] [place] [address] Dr. Alfredo Lizama MANUAL DIFF REQ NO Normal [facility] Comment on above: Performed By: #### U MICRO, ERUR #### [facility] [address] [place] [address] Dr. Alfredo Lizama MCH (RBC) [Entitic mass] 29.4 pg Normal 26.7-34.0 [facility] Comment on above: Performed By: #### U MICRO, ERUR #### [facility] [address] [place] [address] Dr. Alfredo Lizama MCHC (RBC) [Mass/Vol] 32.6 g/dL Normal 29.9-35.2 [facility] Comment on above: Performed By: #### U MICRO, ERUR #### [facility] [address] [place] [address] Dr. Alfredo Lizama MCV (RBC) [Entitic vol] 90.0 fL Normal 81.0-99.0 [facility] Comment on above: Performed By: #### U MICRO, ERUR #### [facility] [address] [place] [address] Dr. Alfredo Lizama MONO # 0.4 103/ul Normal 0.3-0.8 [facility] Comment on above: Performed By: #### U MICRO, ERUR #### [facility] [address] [place] [address] Dr. Alfredo Lizama Monocytes/100 WBC (Bld) 4.8 % Normal 1.7-12.0 [facility] Comment on above: Performed By: #### U MICRO, ERUR #### [facility] [address] [place] [address] Dr. Alfredo Lizama NEUT # 4.7 103/ul Normal 1.4-6.5 [facility] Comment on above: Performed By: #### U MICRO, ERUR #### [facility] [address] [place] [address] Dr. Alfredo Lizama Neutrophils/100 WBC (Bld) 55.5 % Normal 43.0-75.0 [facility] Comment on above: Performed By: #### U MICRO, ERUR #### [facility] [address] [place] [address] Dr. Alfredo Lizama Platelet mean volume (Bld) [Entitic vol] 9.5 fL Normal 9.5-13.5 [facility] Comment on above: Performed By: #### U MICRO, ERUR #### [facility] [address] [place] [address] Dr. Alfredo Lizama PLT 267 103/ul Normal 150-450 [facility] Comment on above: Performed By: #### U MICRO, ERUR #### [facility] [address] [place] [address] Dr. Alfredo Lizama RBC 4.80 106/ul Normal 4.20-5.40 [facility] Comment on above: Performed By: #### U MICRO, ERUR #### [facility] [address] [place] [address] Dr. Alfrdeo Lizama WBC 8.5 103/ul Normal 4.0-11.0 [facility] Comment on above: Performed By: #### U MICRO, ERUR #### [facility] [address] [place] [address] Dr. Alfredo Lizama ER URINE PROFILEon 3 Bilirubin Ql (U) Negative Normal NEGATIVE [facility] Comment on above: Performed By: #### Jacque ESTRADA UMICRO #### [facility] [address] [place] [address] Dr. Alfredo Lizama Clarity (U) CLOUDY Abnormal CLEAR [facility] Comment on above: Performed By: #### Jacque ESTRADA UMICRO #### [facility] [address] [place] [address] Dr. Alfredo Lizama Color (U) YELLOW Normal YELLOW [facility] Comment on above: Performed By: #### Jacque ESTRADA UMICRO #### [facility] [address] [place] [address] Dr. Alfredo RAYMUNDO A micrscopic examina tion will be performed if indicated. Normal [facility] Comment on above: Performed By: #### Jacque ESTRADA UMICRO #### [facility] [address] [place] [address] Dr. Alfredo Lizama Glucose Ql (U) Negative Normal NEGATIVE [facility] Comment on above: Performed By: #### Jacque ESTRADA UMICRO #### [facility] [address] [place] [address] Dr. Alfredo Lizama Hemoglobin Ql (U) MODERATE Abnormal NEGATIVE [facility] Comment on above: Performed By: #### Jacque ESTRADA UMICRO #### [facility] [address] [place] [address] Dr. Alfredo Lizama Ketones Ql (U) TRACE Abnormal NEGATIVE [facility] Comment on above: Performed By: #### Jacque ESTRADA, UMICRO #### [facility] [address] [place] [address] Dr. Alfredo Lizama LEUKOCYTES SMALL Abnormal NEGATIVE [facility] Comment on above: Performed By: #### Jacque ESTRADA, UMICRO #### [facility] [address] [place] [address] Dr. Alfredo Lizama Nitrite Ql (U) Negative Normal NEGATIVE [facility] Comment on above: Performed By: #### Jacque ESTRADA, UMICRO #### [facility] [address] [place] [address] Dr. Alfredo Lizama pH (U) 8.0 [pH] Normal 5-9 [facility] Comment on above: Performed By: #### Jacque ESTRADA, UMICRO #### [facility] [address] [place] [address] Dr. Alfredo Lizama Protein (U) [Mass/Vol] 100 mg/dL Abnormal NEGATIVE/ TRACE [facility] Comment on above: Performed By: #### Jacque ESTRADA, UMICRO #### [facility] [address] [place] [address] Dr. Alfredo Lizama SPEC GRAVITY 1.015 Normal 1.005-<=1.0 25 [facility] Comment on above: Performed By: #### Jacque ESTRADA, UMICRO #### [facility] [address] [place] [address] Dr. Alfredo Lizama UR MICRO IND INDICATED Normal [facility] Comment on above: Performed By: #### Jacque ESTRADA, UMICRO #### [facility] [address] [place] [address] Dr. Alfredo Lizama Urobilinogen Qn (U) 1.0 {Tesha'U}/dL Normal 0.2 - 1. 0 [facility] Comment on above: Performed By: #### Jacque ESTRADA, UMICRO #### [facility] [address] [place] [address] Dr. Alfredo Lizama PROF CHEM 8 (BAS METB)on Anion gap [Moles/Vol] 8.4 mmol/L Normal [facility] Comment on above: Performed By: #### U MICRO, ERUR #### [facility] [address] [address] [address] Alfredo Lizama Calcium [Mass/Vol] 8.7 mg/dL Normal 8.5-10.1 [facility] Comment on above: Performed By: #### U MICRO, ERUR #### [facility] [address] [place] [address] Dr. Alfredo Lizama Chloride [Moles/Vol] 107 mmol/L Normal 98-107 [facility] Comment on above: Performed By: #### U MICRO, ERUR #### [facility] [address] [place] [address] Dr. Alfrdeo Lizama CO2 [Moles/Vol] 28.3 mmol/L Normal 21.0-32.0 [facility] Comment on above: Performed By: #### U MICRO, ERUR #### [facility] [address] [place] [address] Dr. Alfredo Lizama Creatinine [Mass/Vol] 0.70 mg/dL Normal 0.55-1.02 [facility] Comment on above: Performed By: #### U MICRO, ERUR #### [facility] [address] [place] [address] Dr. Alfredo Lizama EGFR-AF BELIZEAN >60 Normal >=60 [facility] Comment on above: Performed By: #### U MICRO, ERUR #### [facility] [address] [place] [address] Dr. Alfredo Lizama EGFR-NON AF BELIZEAN >60 Normal >=60 [facility] Comment on above: Performed By: #### U MICRO, ERUR #### [facility] [address] [address] [address] Alfredo Lizama Glucose [Mass/Vol] 97 mg/dL Normal 74-106 [facility] Comment on above: Performed By: #### U MICRO, ERUR #### [facility] [address] [place] [address] Dr. Alfredo Lizama Potassium [Moles/Vol] 3.7 mmol/L Normal 3.5-5.1 [facility] Comment on above: Performed By: #### U MICRO, ERUR #### [facility] [address] [place] [address] Dr. Alfredo Lizama Sodium [Moles/Vol] 140 mmol/L Normal 136-145 [facility] Comment on above: Performed By: #### U MICRO, ERUR #### [facility] [address] [place] [address] Dr. Alfredo Lizama Urea nitrogen [Mass/Vol] 7.0 mg/dL Normal 7.0-18.0 [facility] Comment on above: Performed By: #### U MICRO, ERUR #### [facility] [address] [place] [address] Dr. Alfredo Lizama Urea nitrogen/Creatinine [Mass ratio] 10.0 mg/mg Normal [facility] Comment on above: Performed By: #### U MICRO, ERUR #### [facility] [address] [place] [address] Dr. Alfredo Lizama URINE MICROSCOPIC ONLYon AMORPHOUS CRYSTALS FEW Normal [facility] Comment on above: Performed By: #### E RUR, UMICRO #### [facility] [address] [place] [address] Dr. Alfredo Lizama BACTERIA LARGE Abnormal NONE SEEN [facility] Comment on above: Performed By: #### E RUR, UMICRO #### [facility] [address] [place] [address] Dr. Alfredo Lizama Bacteria identified Cx Nom (U) INDICATED Normal [facility] Comment on above: Performed By: #### E RUR, UMICRO #### [facility] [address] [place] [address] Dr. Alfredo Lizama CAST NONE SEEN Normal NONE SEEN [facility] Comment on above: Performed By: #### E RUR, UMICRO #### [facility] [address] [place] [address] Dr. Alfredo Lizama Crystals LM Nom (Urine sed) SEEN Abnormal NONE SEEN [facility] Comment on above: Performed By: #### E RUR, UMICRO #### [facility] [address] [address] [address] Alfredo Lizama Epithelial cells LM Ql (Urine sed) RARE Normal NONE SEEN /RARE [facility] Comment on above: Performed By: #### E LONAR, UMICRO #### [facility] [address] [address] [address] Alfredo Lizama MUCOUS NONE SEEN Normal NONE SEEN [facility] Comment on above: Performed By: #### E RUR, UMICRO #### [facility] [address] [address] [address] Alfredo Lizama RBC 2-5 Abnormal 0-2 [facility] Comment on above: Performed By: #### E LONAR UMICRO #### [facility] [address] [address] [address] Alfredo Lizama TRIPLE PHOS CRYSTALS FEW Normal [facility] Comment on above: Performed By: #### E LONAR UMICRO #### [facility] [address] [address] [address] Alfredo Lizama WBC 75-100 Abnormal NONE SEEN [facility] Comment on above: Performed By: #### E SEAN UMICRO #### [facility] [address] [place] [address] Dr. Alfredo Lizama [facility] [place] [facility] [place] (Inserted Image. Shelly ble to display) January 10, 2023 MORALES LEE [address] [place] [address] MORALES LEE 1975 Dear Morales, I am corresponding with you by certified mail because of repeat non compliance. You missed your catheter exchange appointment on 12/31/22. It is recommended your Alvares catheter be exchanged every 4 weeks to prevent encrustation and infection. Also you were referred to Dr Zhang at [facility] for further evaluation regarding your [...] [facility] [address], [place] [address] Andrei Becker [facility] CULTURE URINEon 12-25-2022 CULTURE URINE Isolate [...] F Trimethoprim/Sulfamethoxazo le <=20 S F Normal [facility] Comment on above: Performed By: #### U MICRO, ERUR #### [facility] [address] [place] [address] Dr. Alfredo Lizama AMYLASEon 11-09-2022 Amylase [Catalytic activity/Vol] 14 U/L Critically low 25-115 [facility] Comment on above: Performed By: #### U MICRO, ERUR #### [facility] [address] [place] [address] Dr. Alfredo Lizama CBC AUTO DIFFon 11-09-2022 BASO # 0.1 103/ul Normal 0.0-0.1 [facility] Comment on above: Performed By: #### U MICRO, ERUR #### [facility] [address] [place] [address] Dr. Alfredo Lizama Basophils/100 WBC (Bld) 0.8 % Normal 0.2-2.0 [facility] Comment on above: Performed By: #### U MICRO, ERUR #### [facility] [address] [place] [address] Dr. Alfredo Lizama EO # 0.2 103/ul Normal 0.0-0.7 [facility] Comment on above: Performed By: #### U MICRO, ERUR #### [facility] [address] [place] [address] Dr. Alfredo Lizama Eosinophils/100 WBC (Bld) 2.5 % Normal 0.9-7.0 [facility] Comment on above: Performed By: #### U MICRO, ERUR #### [facility] [address] [place] [address] Dr. Alfredo Lizama Erythrocyte distribution width (RBC) [Ratio] 12.7 % Normal 11.0-15.0 [facility] Comment on above: Performed By: #### U MICRO, ERUR #### [facility] [address] [place] [address] Dr. Alfredo Lizama Hematocrit (Bld) [Volume fraction] 46.3 % Normal 36.0-48.0 [facility] Comment on above: Performed By: #### U MICRO, ERUR #### [facility] [address] [place] [address] Dr. Alfredo Lizama Hemoglobin (Bld) [Mass/Vol] 15.9 g/dL Normal 12.0-16.0 [facility] Comment on above: Performed By: #### U MICRO, ERUR #### [facility] [address] [place] [address] Dr. Alfredo Lizama IG # 0.02 10e3/ul Normal 0.00-0.03 [facility] Comment on above: Performed By: #### U MICRO, ERUR #### [facility] [address] [place] [address] Dr. Alfredo Lizama IG % 0.2 % Normal 0.0-0.5 [facility] Comment on above: Performed By: #### U MICRO, ERUR #### [facility] [address] [place] [address] Dr. Alfredo Lizama LYMPH # 2.6 103/ul Normal 1.2-3.8 [facility] Comment on above: Performed By: #### U MICRO, ERUR #### [facility] [address] [place] [address] Dr. Alfredo Lizama Lymphocytes/100 WBC (Bld) 31.3 % Normal 20.5-60.0 [facility] Comment on above: Performed By: #### U MICRO, ERUR #### [facility] [address] [place] [address] Dr. Alfredo Lizama MANUAL DIFF REQ NO Normal [facility] Comment on above: Performed By: #### U MICRO, ERUR #### [facility] [address] [place] [address] Dr. Alfredo Lizama MCH (RBC) [Entitic mass] 29.3 pg Normal 26.7-34.0 [facility] Comment on above: Performed By: #### U MICRO, ERUR #### [facility] [address] [place] [address] Dr. Alfredo Lizama MCHC (RBC) [Mass/Vol] 34.3 g/dL Normal 29.9-35.2 [facility] Comment on above: Performed By: #### U MICRO, ERUR #### [facility] [address] [place] [address] Dr. Alfredo Lizama MCV (RBC) [Entitic vol] 85.4 fL Normal 81.0-99.0 [facility] Comment on above: Performed By: #### U MICRO, ERUR #### [facility] [address] [place] [address] Dr. Alfredo Lizama MONO # 0.6 103/ul Normal 0.3-0.8 [facility] Comment on above: Performed By: #### U MICRO, ERUR #### [facility] [address] [place] [address] Dr. Alfredo Lizama Monocytes/100 WBC (Bld) 6.6 % Normal 1.7-12.0 [facility] Comment on above: Performed By: #### U MICRO, ERUR #### [facility] [address] [place] [address] Dr. Alfredo Lizama NEUT # 4.9 103/ul Normal 1.4-6.5 [facility] Comment on above: Performed By: #### U MICRO, ERUR #### [facility] [address] [place] [address] Dr. Alfredo Lizama Neutrophils/100 WBC (Bld) 58.6 % Normal 43.0-75.0 [facility] Comment on above: Performed By: #### U MICRO, ERUR #### [facility] [address] [address] [address] Alfredo Lizama Platelet mean volume (Bld) [Entitic vol] 9.5 fL Normal 9.5-13.5 [facility] Comment on above: Performed By: #### U MICRO, ERUR #### [facility] [address] [place] [address] Dr. Alfredo Lizama PLT 273 103/ul Normal 150-450 [facility] Comment on above: Performed By: #### U MICRO, ERUR #### [facility] [address] [place] [address] Dr. Alfredo Lizama RBC 5.42 106/ul Critically high 4.20-5.40 [facility] Comment on above: Performed By: #### U MICRO, ERUR #### [facility] [address] [place] [address] Dr. Alfredo Lizama WBC 8.4 103/ul Normal 4.0-11.0 [facility] Comment on above: Performed By: #### U MICRO, ERUR #### [facility] [address] [place] [address] Dr. Alfredo Lizama CULTURE URINEon 11-09-2022 CULTURE URINE Culture Observations : MODERATE GROWTH OF MIXED GENITAL ROSANNA. NO POTENTIAL PATHOGENS SEEN. Normal [facility] Comment on above: Performed By: #### U MICRO, ERUR #### [facility] [address] [place] [address] Dr. Alfredo Lizama ER URINE PROFILEon 3 Bilirubin Ql (U) Negative Normal NEGATIVE [facility] Comment on above: Performed By: #### U MICRO, ERUR #### [facility] [address] [place] [address] Dr. Alfredo Lizama Clarity (U) CLEAR Normal CLEAR [facility] Comment on above: Performed By: #### U MICRO, ERUR #### [facility] [address] [place], [place] [id number] Dr. Alfredo Lizama Color (U) LT. YELLOW Normal YELLOW [facility] Comment on above: Performed By: #### U MICRO, ERUR #### [facility] [address] [place] [address] Dr. Alfredo RAYMUNDO A micrscopic examina tion will be performed if indicated. Normal [facility] Comment on above: Performed By: #### U MICRO, ERUR #### [facility] [address] [address] [address] Alfredo Lizama Glucose Ql (U) Negative Normal NEGATIVE [facility] Comment on above: Performed By: #### U MICRO, ERUR #### [facility] [address] [place] [address] Dr. Alfredo Lizama Hemoglobin Ql (U) MODERATE Abnormal NEGATIVE [facility] Comment on above: Performed By: #### U MICRO, ERUR #### [facility] [address] [place] [address] Dr. Alfredo Lizama Ketones Ql (U) Negative Normal NEGATIVE [facility] Comment on above: Performed By: #### U MICRO, ERUR #### [facility] [address] [place] [address] Dr. Alfredo Lizama LEUKOCYTES LARGE Abnormal NEGATIVE [facility] Comment on above: Performed By: #### U MICRO, ERUR #### [facility] [address] [place] [address] Dr. Alfredo Lizama Nitrite Ql (U) Negative Normal NEGATIVE [facility] Comment on above: Performed By: #### U MICRO, ERUR #### [facility] [address] [place] [address] Dr. Alfredo Lizama pH (U) 7.0 [pH] Normal 5-9 [facility] Comment on above: Performed By: #### U MICRO, ERUR #### [facility] [address] [place] [address] Dr. Alfredo Lizama SPEC GRAVITY 1.015 Normal 1.005-<=1.0 25 [facility] Comment on above: Performed By: #### U MICRO, ERUR #### [facility] [address] [place] [address] Dr. Alfredo Lizama UA PROTEIN Negative Normal NEGATIVE/ TRACE [facility] Comment on above: Performed By: #### U MICRO, ERUR #### [facility] [address] [place] [address] Dr. Alfredo Lizama UR MICRO IND INDICATED Normal [facility] Comment on above: Performed By: #### U MICRO, ERUR #### [facility] [address] [place] [address] Dr. Alfredo Lizama Urobilinogen Qn (U) 0.2 {Tesha'U}/dL Normal 0.2 - 1. 0 [facility] Comment on above: Performed By: #### U MICRO, ERUR #### [facility] [address] [place] [address] Dr. Alfredo Lizama LIPASEon 11-09-2022 Lipase [Catalytic activity/Vol] 34.0 U/L Critically low 73.0-393.0 [facility] Comment on above: Performed By: #### U MICRO, ERUR #### [facility] [address] [place] [address] Dr. Alfredo Lizama PROF 14(COMP METB)on 023 Albumin [Mass/Vol] 4.0 g/dL Normal 3.4-5.0 [facility] Comment on above: Performed By: #### U MICRO, ERUR #### [facility] [address] [place] [address] Dr. Alfredo Lizama Albumin/Globulin [Mass ratio] 1.0 {ratio} Normal [facility] Comment on above: Performed By: #### U MICRO, ERUR #### [facility] [address] [place] [address] Dr. Alfredo Lizama ALP [Catalytic activity/Vol] 206 U/L Critically high 46-116 [facility] Comment on above: Performed By: #### U MICRO, ERUR #### [facility] [address] [place] [address] Dr. Alfredo Lizama ALT [Catalytic activity/Vol] 53 U/L Normal 14-59 [facility] Comment on above: Performed By: #### U MICRO, ERUR #### [facility] [address] [address] [address] Alfredo Lizama Anion gap [Moles/Vol] 14.5 mmol/L Normal [facility] Comment on above: Performed By: #### U MICRO, ERUR #### [facility] [address] [address] [address] Alfredo Lizama AST [Catalytic activity/Vol] 55 U/L Critically high 15-37 [facility] Comment on above: Performed By: #### U MICRO, ERUR #### [facility] [address] [address] [address] Alfredo Lizama Bilirubin [Mass/Vol] 0.7 mg/dL Normal 0.2-1.0 [facility] Comment on above: Performed By: #### U MICRO, ERUR #### [facility] [address] [address] [address] Alfredo Lizama Calcium [Mass/Vol] 9.0 mg/dL Normal 8.5-10.1 [facility] Comment on above: Performed By: #### U MICRO, ERUR #### [facility] [address] [address] [address] Alfredo Lizama Chloride [Moles/Vol] 100 mmol/L Normal 98-107 [facility] Comment on above: Performed By: #### U MICRO, ERUR #### [facility] [address] [address] [address] Alfredo Lizama CO2 [Moles/Vol] 28.3 mmol/L Normal 21.0-32.0 [facility] Comment on above: Performed By: #### U MICRO, ERUR #### [facility] [address] [address] [address] Alfredo Lizama Creatinine [Mass/Vol] 0.65 mg/dL Normal 0.55-1.02 [facility] Comment on above: Performed By: #### U MICRO, ERUR #### [facility] [address] [address] [address] Alfredo Lizama EGFR-AF BELIZEAN >60 Normal >=60 [facility] Comment on above: Performed By: #### U MICRO, ERUR #### [facility] [address] [address] [address] Alfredo Lizama EGFR-NON AF BELIZEAN >60 Normal >=60 [facility] Comment on above: Performed By: #### U MICRO, ERUR #### [facility] [address] [address] [address] Alfredo Lizama Globulin (S) [Mass/Vol] 3.9 g/dL Normal [facility] Comment on above: Performed By: #### U MICRO, ERUR #### [facility] [address] [address] [address] Alfredo Lizama Glucose [Mass/Vol] 134 mg/dL Critically high 74-106 [facility] Comment on above: Performed By: #### U MICRO, ERUR #### [facility] [address] [address] [address] Alfredo Lizama Potassium [Moles/Vol] 3.8 mmol/L Normal 3.5-5.1 [facility] Comment on above: Performed By: #### U MICRO, ERUR #### [facility] [address] [address] [address] Alfredo Lizama Protein [Mass/Vol] 7.9 g/dL Normal 6.4-8.2 [facility] Comment on above: Performed By: #### U MICRO, ERUR #### [facility] [address] [address] [address] Alfredo Lizama Sodium [Moles/Vol] 139 mmol/L Normal 136-145 [facility] Comment on above: Performed By: #### U MICRO, ERUR #### [facility] [address] [address] [address] Alfredo Lizama Urea nitrogen [Mass/Vol] 7.0 mg/dL Normal 7.0-18.0 [facility] Comment on above: Performed By: #### U MICRO, ERUR #### [facility] [address] [address] [address] Alfredo Lizama Urea nitrogen/Creatinine [Mass ratio] 10.7 mg/mg Normal [facility] Comment on above: Performed By: #### U MICRO, ERUR #### [facility] [address] [address] [address] Alfredo Lizama URINE MICROSCOPIC ONLYon BACTERIA TRACE Abnormal NONE SEEN [facility] Comment on above: Performed By: #### U MICRO, ERUR #### [facility] [address] [place] [address] Dr. Alfredo Lizama Bacteria identified Cx Nom (U) INDICATED Normal [facility] Comment on above: Performed By: #### U MICRO, ERUR #### [facility] [address] [place] [address] Dr. Alfredo Lizama CAST NONE SEEN Normal NONE SEEN [facility] Comment on above: Performed By: #### U MICRO, ERUR #### [facility] [address] [place] [address] Dr. Alfredo Lizama Crystals LM Nom (Urine sed) NONE SEEN Normal NONE SEEN [facility] Comment on above: Performed By: #### U MICRO, ERUR #### [facility] [address] [place] [address] Dr. Alfredo Lizama Epithelial cells LM Ql (Urine sed) FEW Abnormal NONE SEEN /RARE [facility] Comment on above: Performed By: #### U MICRO, ERUR #### [facility] [address] [place] [address] Dr. Alfredo Lizama MUCOUS NONE SEEN Normal NONE SEEN [facility] Comment on above: Performed By: #### U MICRO, ERUR #### [facility] [address] [place] [address] Dr. Alfredo Lizama RBC 20-50 Abnormal 0-2 [facility] Comment on above: Performed By: #### U MICRO, ERUR #### [facility] [address] [place] [address] Dr. Alfredo Lizama WBC 20-50 Abnormal NONE SEEN [facility] Comment on above: Performed By: #### U MICRO, ERUR #### [facility] [address] [place] [address] Dr. Alfredo Lizama XR ABD FLAT_UPon 11-09-2022 [...] ENRIQUE LOWE Date: 2022-11-09 11:06 Normal [facility] CULTURE URINEon 10-18-2022 CULTURE URINE Isolate [...] Trimethoprim/Sulfamethoxazo le <=10 S F Normal [facility] Comment on above: Performed By: #### U AUTUMN VIDAL #### [facility] [address] [place] [address] Dr. Alfredo SANDY URINE PROFILEon 3 Bilirubin Ql (U) Negative Normal NEGATIVE [facility] Comment on above: Performed By: #### E LINDA ESTRADA #### [facility] [address] [place] [address] Dr. Alfredo Lizama Clarity (U) CLEAR Normal CLEAR [facility] Comment on above: Performed By: #### CHINMAY CHAVESRO #### [facility] [address] [place] [address] Dr. Alfredo Lizama Color (U) YELLOW Normal YELLOW [facility] Comment on above: Performed By: #### CHINMAY CHAVESRO #### [facility] [address] [place] [address] Dr. Alfredo Lizama ERUAHD A micrscopic examina tion will be performed if indicated. Normal [facility] Comment on above: Performed By: #### CHINMAY CHAVESRO #### [facility] [address] [place] [address] Dr. Alfredo Lizama Glucose Ql (U) Negative Normal NEGATIVE [facility] Comment on above: Performed By: #### CHINMAY CHAVESRO #### [facility] [address] [place] [address] Dr. Alfredo Lizama Hemoglobin Ql (U) LARGE Abnormal NEGATIVE [facility] Comment on above: Performed By: #### CHINMAY CHAVESRO #### [facility] [address] [place] [address] Dr. Alfredo Lizama Ketones Ql (U) Negative Normal NEGATIVE [facility] Comment on above: Performed By: #### CHINMAY CHAVESRO #### [facility] [address] [place] [address] Dr. Alfredo Lizama LEUKOCYTES LARGE Abnormal NEGATIVE [facility] Comment on above: Performed By: #### CHINMAY CHAVESRO #### [facility] [address] [place] [address] Dr. Alfredo Lizama Nitrite Ql (U) Positive Abnormal NEGATIVE [facility] Comment on above: Performed By: #### CHINMAY CHAVESRO #### [facility] [address] [place] [address] Dr. Alfredo Lizama pH (U) 6.5 [pH] Normal 5-9 [facility] Comment on above: Performed By: #### E SEAN UMICRO #### [facility] [address] [place] [address] Dr. Alfredo Lizama Protein (U) [Mass/Vol] 100 mg/dL Abnormal NEGATIVE/ TRACE [facility] Comment on above: Performed By: #### E RUEsther, UMICRO #### [facility] [address] [place] [address] Dr. Alfredo Lizama SPEC GRAVITY 1.010 Normal 1.005-<=1.0 25 [facility] Comment on above: Performed By: #### E SEAN UMICRO #### [facility] [address] [place] [address] Dr. Alfredo Lizama UR MICRO IND INDICATED Normal [facility] Comment on above: Performed By: #### E SEAN UMICRO #### [facility] [address] [place] [address] Dr. Alfredo Lizama Urobilinogen Qn (U) 1.0 {Tesha'U}/dL Normal 0.2 - 1. 0 [facility] Comment on above: Performed By: #### Jacque ESTRADA UMICRO #### [facility] [address] [place] [address] Dr. Alfredo Lizama URINE MICROSCOPIC ONLYon BACTERIA MODERATE Abnormal NONE SEEN [facility] Comment on above: Performed By: #### U MICRO, ERUR #### [facility] [address] [place] [address] Dr. Alfredo Lizama Bacteria identified Cx Nom (U) INDICATED Normal [facility] Comment on above: Performed By: #### U MICRO, ERUR #### [facility] [address] [place] [address] Dr. Alfredo Lizama CA OX CRYSTALS RARE Normal [facility] Comment on above: Performed By: #### U MICRO, ERUR #### [facility] [address] [place] [address] Dr. Alfredo Lizama CAST NONE SEEN Normal NONE SEEN [facility] Comment on above: Performed By: #### U MICRO, ERUR #### [facility] [address] [place] [address] Dr. Alfredo Lizama Crystals LM Nom (Urine sed) SEEN Abnormal NONE SEEN [facility] Comment on above: Performed By: #### U MICRO, ERUR #### [facility] [address] [place] [address] Dr. Alfredo Lizama Epithelial cells LM Ql (Urine sed) MODERATE Abnormal NONE SEEN /RARE [facility] Comment on above: Performed By: #### U MICRO, ERUR #### [facility] [address] [place] [address] Dr. Alfredo Lizama MUCOUS TRACE Abnormal NONE SEEN [facility] Comment on above: Performed By: #### U MICRO, ERUR #### [facility] [address] [place] [address] Dr. Alfredo Lizama RBC 20-50 Abnormal 0-2 [facility] Comment on above: Performed By: #### U MICRO, ERUR #### [facility] [address] [place] [address] Dr. Alfredo Lizama WBC 50-75 Abnormal NONE SEEN [facility] Comment on above: Performed By: #### U MICRO, ERUR #### [facility] [address] [place] [address] Dr. Alfredo Lizama Covid-19 PCR ([facility])on 08-06 SARS-CoV-2 (COVID-19) RNA ADRIÁN+probe Ql (Unsp spec) Not detected Normal NOT DETECTED [facility] Comment on above: Result Comment: When [...] for this test is supported by the [place] of [employer] and Human Service's declaration that [...] Performed By: #### U MICRO, ERUR #### [facility] [address] [place] [address] Dr. Alfredo Lizama CBC AUTO DIFFon 08-24-2022 BASO # 0.1 103/ul Normal 0.0-0.1 [facility] Comment on above: Performed By: #### C BC #### [facility] [address] [place] [address] Dr. Alfredo Lizama Basophils/100 WBC (Bld) 0.8 % Normal 0.2-2.0 [facility] Comment on above: Performed By: #### C BC #### [facility] [address] [place] [address] Dr. Alfredo Lizama EO # 0.3 103/ul Normal 0.0-0.7 [facility] Comment on above: Performed By: #### C BC #### [facility] [address] [place] [address] Dr. Alfredo Lizama Eosinophils/100 WBC (Bld) 3.1 % Normal 0.9-7.0 [facility] Comment on above: Performed By: #### C BC #### [facility] [address] [place] [address] Dr. Alfredo Lizama Erythrocyte distribution width (RBC) [Ratio] 13.4 % Normal 11.0-15.0 [facility] Comment on above: Performed By: #### C BC #### [facility] [address] [place] [address] Dr. Alfredo Lizama Hematocrit (Bld) [Volume fraction] 47.2 % Normal 36.0-48.0 [facility] Comment on above: Performed By: #### C BC #### [facility] [address] [place] [address] Dr. Alfredo Lizama Hemoglobin (Bld) [Mass/Vol] 15.6 g/dL Normal 12.0-16.0 [facility] Comment on above: Performed By: #### C BC #### [facility] [address] [place] [address] Dr. Alfredo Lizama IG # 0.02 10e3/ul Normal 0.00-0.03 [facility] Comment on above: Performed By: #### C BC #### [facility] [address] [place] [address] Dr. Alfredo Lizama IG % 0.2 % Normal 0.0-0.5 [facility] Comment on above: Performed By: #### C BC #### [facility] [address] [place] [address] Dr. Alfredo Lizama LYMPH # 4.4 103/ul Critically high 1.2-3.8 [facility] Comment on above: Performed By: #### C BC #### [facility] [address] [place] [address] Dr. Alfredo Lizama Lymphocytes/100 WBC (Bld) 42.3 % Normal 20.5-60.0 [facility] Comment on above: Performed By: #### C BC #### [facility] [address] [place] [address] Dr. Alfredo Lizama MANUAL DIFF REQ NO Normal [facility] Comment on above: Performed By: #### C BC #### [facility] [address] [place] [address] Dr. Alfredo Lizama MCH (RBC) [Entitic mass] 28.8 pg Normal 26.7-34.0 [facility] Comment on above: Performed By: #### C BC #### [facility] [address] [place] [address] Dr. Alfredo Lizama MCHC (RBC) [Mass/Vol] 33.1 g/dL Normal 29.9-35.2 [facility] Comment on above: Performed By: #### C BC #### [facility] [address] [place] [address] Dr. Alfredo Lizama MCV (RBC) [Entitic vol] 87.2 fL Normal 81.0-99.0 [facility] Comment on above: Performed By: #### C BC #### [facility] [address] [place] [address] Dr. Alfredo Lizama MONO # 0.6 103/ul Normal 0.3-0.8 [facility] Comment on above: Performed By: #### C BC #### [facility] [address] [place] [address] Dr. Alfredo Lizama Monocytes/100 WBC (Bld) 5.3 % Normal 1.7-12.0 [facility] Comment on above: Performed By: #### C BC #### [facility] [address] [place] [address] Dr. Alfredo Lizama NEUT # 5.0 103/ul Normal 1.4-6.5 [facility] Comment on above: Performed By: #### C BC #### [facility] [address] [place] [address] Dr. Alfredo Lizama Neutrophils/100 WBC (Bld) 48.3 % Normal 43.0-75.0 [facility] Comment on above: Performed By: #### C BC #### [facility] [address] [place] [address] Dr. Alfredo Lizama Platelet mean volume (Bld) [Entitic vol] 9.9 fL Normal 9.5-13.5 [facility] Comment on above: Performed By: #### C BC #### [facility] [address] [place] [address] Dr. Alfredo Lizama PLT 298 103/ul Normal 150-450 [facility] Comment on above: Performed By: #### C BC #### [facility] [address] [place] [address] Dr. Alfredo Lizama RBC 5.41 106/ul Critically high 4.20-5.40 [facility] Comment on above: Performed By: #### C BC #### [facility] [address] [place] [address] Dr. Alfredo Lizama WBC 10.3 103/ul Normal 4.0-11.0 [facility] Comment on above: Performed By: #### C BC #### [facility] [address] [place] [address] Dr. Alfredo Lizama PROF CHEM 8 (BAS METB)on Anion gap [Moles/Vol] 14.3 mmol/L Normal [facility] Comment on above: Performed By: #### U MICRO, ERUR #### [facility] [address] [place] [address] Dr. Alfredo Lizama Calcium [Mass/Vol] 9.1 mg/dL Normal 8.5-10.1 [facility] Comment on above: Performed By: #### U MICRO, ERUR #### [facility] [address] [place] [address] Dr. Alfredo Lizama Chloride [Moles/Vol] 99 mmol/L Normal 98-107 [facility] Comment on above: Performed By: #### U MICRO, ERUR #### [facility] [address] [place] [address] Dr. Alfredo Lizama CO2 [Moles/Vol] 29.0 mmol/L Normal 21.0-32.0 [facility] Comment on above: Performed By: #### U MICRO, ERUR #### [facility] [address] [place] [address] Dr. Alfredo Lizama Creatinine [Mass/Vol] 0.70 mg/dL Normal 0.55-1.02 [facility] Comment on above: Performed By: #### U MICRO, ERUR #### [facility] [address] [place] [address] Dr. Alfredo Lizama EGFR-AF BELIZEAN >60 Normal >=60 [facility] Comment on above: Performed By: #### U MICRO, ERUR #### [facility] [address] [place] [address] Dr. Alfredo Lizama EGFR-NON AF BELIZEAN >60 Normal >=60 [facility] Comment on above: Performed By: #### U MICRO, ERUR #### [facility] [address] [place] [address] Dr. Alfredo Lizama Glucose [Mass/Vol] 121 mg/dL Critically high 74-106 T [facility] Comment on above: Performed By: #### U MICRO, ERUR #### [facility] [address] [place] [address] Dr. Alfredo Lizama Potassium [Moles/Vol] 3.3 mmol/L Critically low 3.5-5.1 [facility] Comment on above: Performed By: #### U MICRO, ERUR #### [facility] [address] [place] [address] Dr. Alfredo Lizama Sodium [Moles/Vol] 139 mmol/L Normal 136-145 [facility] Comment on above: Performed By: #### U MICRO, ERUR #### [facility] [address] [address] [address] Alfredo Lizama Urea nitrogen [Mass/Vol] 5.0 mg/dL Critically low 7.0-18.0 [facility] Comment on above: Performed By: #### U MICRO, ERUR #### [facility] [address] [place] [address] Dr. Alfredo Lizama Urea nitrogen/Creatinine [Mass ratio] 7.1 mg/mg Normal [facility] Comment on above: Performed By: #### U MICRO, ERUR #### [facility] [address] [place] [address] Dr. Alfredo Lizama PROTIMEon 08-24-2022 INR Coag (PPP) [Relative time] 0.99 {INR} Normal [facility] Comment on above: Performed By: #### P T, PTT #### [facility] [address] [place] [address] Dr. Alfredo Lizama INR GUIDELINES SEE BELOW Normal [facility] Comment on above: Result Comment: MARY JO RED INR: 2.0 - 3.0 CONDITIONS NOT LISTED BELOW 2.5 - 3.5 FOR PROSTHETIC HEART VALVE REPLACEMENT 2.5 - 3.5 RECURRENT THROMBOSIS Performed By: #### P T, PTT #### [facility] [address] [place] [address] Dr. Alfredo Lizama PT Coag (PPP) [Time] 10.7 s Normal 9.0-11.6 [facility] Comment on above: Performed By: #### P T, PTT #### [facility] [address] [place] [address] Dr. Alfredo Lizama PTTon 08-24-2022 aPTT Coag (Bld) [Time] 31.7 s Normal 22.3-36.2 [facility] Comment on above: Performed By: #### P T, PTT #### [facility] [address] [place] [address] Dr. Alfredo Lizama BN SACRUM/COCCYX, MIN 2 [...] 09/20/2019. Thoracolumbar spine radiographs 09/08/2021. ACCESSION NUMBER(S): [id number]; [id number]; [id number] ORDERING CLINICIAN: CANDICE PEREZ FINDINGS: Three views [...] Electronically signed by: GOMEZ JAMA MD [facility] BN SPINE, LUMBOSACRAL; 2 OR 3 [...] 09/20/2019. Thoracolumbar spine radiographs 09/08/2021. ACCESSION NUMBER(S): [id number]; [id number]; [id number] ORDERING CLINICIAN: CANDICE PEREZ FINDINGS: Three views [...] Electronically signed by: GOMEZ JAMA MD [facility] BN SPINE, THORACIC, 3 VIEWSo n [...] 09/20/2019. Thoracolumbar spine radiographs 09/08/2021. ACCESSION NUMBER(S): [id number]; [id number]; [id number] ORDERING CLINICIAN: CANDICE PEREZ FINDINGS: Three views [...] Electronically signed by: GOMEZ JAMA MD [facility] CBC AND DIFFERENTIALon 06-07 % AUTOMATED IMMATURE GRAN 0.2 % Normal 0.0 - 0.9 [facility] Comment on above: Result Comment: Jaleesa ture Granulocyte Count (IG) includes promyelocytes, myelocytes and metamyelocytes but does not include bands. Percent differential counts (%) should be interpreted in the context of the absolute cell counts (cells/L). Performed By: #### R ENAL #### [facility] [address] [place] [address] Basophils (Bld) [#/Vol] 0.09 10*3/uL Normal 0.00 - 0.10 [facility] Comment on above: Performed By: #### R ENAL #### [facility] [address] [place] [address] Basophils/100 WBC (Bld) 1.0 % Normal 0.0 - 2.0 [facility] Comment on above: Performed By: #### R ENAL #### [facility] [address] [place] [address] Eosinophils (Bld) [#/Vol] 0.24 10*3/uL Normal 0.00 - 0.70 [facility] Comment on above: Performed By: #### R ENAL #### [facility] [address] [place] [address] Eosinophils/100 WBC (Bld) 2.6 % Normal 0.0 - 6.0 [facility] Comment on above: Performed By: #### R ENAL #### [facility] [address] [place] [address] Erythrocyte distribution width (RBC) [Ratio] 12.9 % Normal 11.5 - 14.5 [facility] Comment on above: Performed By: #### R ENAL #### [facility] [address] [place] [address] Hematocrit (Bld) [Volume fraction] 48.4 % High 36.0 - 46.0 [facility] Comment on above: Performed By: #### R ENAL #### [facility] [address] [place] [address] Hemoglobin (Bld) [Mass/Vol] 17.1 g/dL High 12.0 - 16.0 [facility] Comment on above: Performed By: #### R ENAL #### [facility] [address] [place] [address] Lymphocytes (Bld) [#/Vol] 2.93 10*3/uL Normal 1.20 - 4.80 [facility] Comment on above: Performed By: #### R ENAL #### [facility] [address] [place] [address] Lymphocytes/100 WBC (Bld) 31.9 % Normal 13.0 - 44.0 [facility] Comment on above: Performed By: #### R ENAL #### [facility] [address] [place] [address] MCHC (RBC) [Mass/Vol] 35.3 g/dL Normal 32.0 - 36.0 [facility] Comment on above: Performed By: #### R ENAL #### [facility] [address] [place] [address] MCV (RBC) [Entitic vol] 85 fL Normal 80 - 100 [facility] Comment on above: Performed By: #### R ENAL #### [facility] [address] [place] [address] Monocytes (Bld) [#/Vol] 0.36 10*3/uL Normal 0.10 - 1.00 [facility] Comment on above: Performed By: #### R ENAL #### [facility] [address] [place] [address] Monocytes/100 WBC (Bld) 3.9 % Normal 2.0 - 10.0 [facility] Comment on above: Performed By: #### R ENAL #### [facility] [address] [place] [address] Neutrophils (Bld) [#/Vol] 5.54 10*3/uL Normal 1.20 - 7.70 [facility] Comment on above: Performed By: #### R ENAL #### [facility] [address] [place] [address] Neutrophils/100 WBC (Bld) 60.4 % Normal 40.0 - 80.0 [facility] Comment on above: Performed By: #### R ENAL #### [facility] [address] [place] [address] NUCLEATED RBC 0.0 /100 WBC Normal 0.0-0.0 [facility] Comment on above: Performed By: #### R ENAL #### [facility] [address] [place] [address] Platelets (Bld) [#/Vol] 365 10*3/uL Normal 150 - 450 [facility] Comment on above: Performed By: #### R ENAL #### [facility] [address] [place] [address] RBC 5.69 x10E12/L High 4.00 - 5.20 [facility] Comment on above: Performed By: #### R ENAL #### [facility] [address] [place] [address] WBC (Bld) [#/Vol] 9.2 10*3/uL Normal 4.4 - 11.3 [facility] Comment on above: Performed By: #### R ENAL #### [facility] [address] [place] [address] COMPREHENSIVE PANELon 2021 Albumin [Mass/Vol] 4.6 g/dL Normal 3.4 - 5.0 [facility] Comment on above: Performed By: #### R ENAL #### [facility] [address] [place] [address] ALP [Catalytic activity/Vol] 192 U/L High 33 - 110 [facility] Comment on above: Performed By: #### R ENAL #### [facility] [address] [place] [address] ALT [Catalytic activity/Vol] 33 U/L Normal 7 - 45 [facility] Comment on above: Result Comment: Melly ents treated with Sulfasalazine may generate falsely decreased results for ALT. Performed By: #### R ENAL #### [facility] [address] [place] [address] Anion gap [Moles/Vol] 16 mmol/L Normal 10 - 20 [facility] Comment on above: Performed By: #### R ENAL #### [facility] [address] [place] [address] AST [Catalytic activity/Vol] 51 U/L High 9 - 39 [facility] Comment on above: Performed By: #### R ENAL #### [facility] [address] [place] [address] Bilirubin [Mass/Vol] 0.5 mg/dL Normal 0.0 - 1.2 [facility] Comment on above: Performed By: #### R ENAL #### [facility] [address] [place] [address] Calcium [Mass/Vol] 10.3 mg/dL Normal 8.6 - 10.6 [facility] Comment on above: Performed By: #### R ENAL #### [facility] [address] [place] [address] Chloride [Moles/Vol] 101 mmol/L Normal 98 - 107 [facility] Comment on above: Performed By: #### R ENAL #### [facility] [address] [place] [address] Creatinine [Mass/Vol] 0.61 mg/dL Normal 0.50 - 1.05 [facility] Comment on above: Performed By: #### R ENAL #### [facility] [address] [place] [address] eGFR FEMALE >90 Normal >90 [facility] Comment on above: Result Comment: CALC ULATIONS OF ESTIMATED GFR ARE PERFORMED USING THE 2020 CKD-EPI STUDY REFIT EQUATION WITHOUT THE RACE VARIABLE FOR THE IDMS-TRACEABLE CREATININE METHODS. https://jasn.asnjournals.org/content/early/ASN.6543329 988 Performed By: #### R ENAL #### [facility] [address] [place] [address] Glucose [Mass/Vol] 100 mg/dL High 74 - 99 [facility] Comment on above: Performed By: #### R ENAL #### [facility] [address] [place] [address] HCO3 (Bld) [Moles/Vol] 27 mmol/L Normal 21 - 32 [facility] Comment on above: Performed By: #### R ENAL #### [facility] [address] [place] [address] Potassium [Moles/Vol] 3.8 mmol/L Normal 3.5 - 5.3 [facility] Comment on above: Performed By: #### R ENAL #### [place] [address] [place] [address] Protein [Mass/Vol] 8.2 g/dL Normal 6.4 - 8.2 [facility] Comment on above: Performed By: #### R ENAL #### [facility] [address] [place] [address] Sodium [Moles/Vol] 140 mmol/L Normal 136 - 145 [facility] Comment on above: Performed By: #### R ENAL #### [place] [address] [place] [address] Urea nitrogen [Mass/Vol] 5 mg/dL Low 6 - 23 [facility] Comment on above: Performed By: #### R ENAL #### [facility] [address] [place] [address] Consult - Neuro-Surgeryon Consult - Neuro-Surgery Service: [...] Updated: 07-Jun-2022 11:22 by Perez Carlisle) [facility] NR CT L-SPINE WO CONTRASTon 06-07-[address] L-SPINE WO CONTRAST Patient Name: MORALES LEE STUDY: CT T-SPINE WO CONTRAST; CT L-SPINE WO CONTRAST 06/06/2022 11:03 pm INDICATION: ok, Lie Flat: Yes COMPARISON: 09/20/2021 MRI and 09/18/2021 CT ACCESSION NUMBER(S): [id number]; [id number] ORDERING CLINICIAN: CANDICE PEREZ TECHNIQUE: Axial CT [...] osseous spinal canal or neural foraminal stenosis. [id number] spinal canal and neural foraminal narrowing described [...] Electronically signed by: CELI MCNEIL, DO [facility] NR CT T-SPINE WO CONTRASTon 06-07-[address] T-SPINE WO CONTRAST Patient Name: MORALES LEE STUDY: CT T-SPINE WO CONTRAST; CT L-SPINE WO CONTRAST 06/06/2022 11:03 pm INDICATION: ok, Lie Flat: Yes COMPARISON: 09/20/2021 MRI and 09/18/2021 CT ACCESSION NUMBER(S): [id number]; [id number] ORDERING CLINICIAN: CANDICE PEREZ TECHNIQUE: Axial CT [...] osseous spinal canal or neural foraminal stenosis. Qulr-mz-xjwrzrim spinal canal and neural foraminal narrowing described [...] Electronically signed by: CELI MCNEIL DO [facility] Provider Note - ED Care Diaz cassieon 06-07-2022 Provider Note - ED Care Transition [...] 21-Jun-2022 06:18 by Yony Aguirre () [facility] Provider Note - ED v3on 10-0 [...] - M21.37 (more content not included)... [facility] Triage - EDon 06-06-2022 Triage - [...] obeys commands Best Verbal Response: (V5) oriented [place] Score: 15 Mask applied: yes Patient has [...] Medical History Reviewedyes Electronic Signatures: Meghan Chavez (MERA) (Signed 06-Jun-2022 19:07) Entered: Risk Screens, Pain, Travel History, Chart Review, Scores, Past Medical History Authored: Quick Triage, Risk Screens, Pain, Travel History, Chart Review, Scores, Past Medical History Last Updated: 06-Jun-2022 19:07 by Meghan Chavez (MERA) [facility] CULTURE URINEon 05-10-2022 CULTURE URINE Isolate [...] Trimethoprim/Sulfamethoxazo le <=20 S F Normal [facility] Comment on above: Performed By: #### U MICRO, ERUR #### [facility] [address] [place] [address] Dr. Alfredo Lizama CBC AUTO DIFFon 05-07-2022 BASO # 0.1 103/ul Normal 0.0-0.1 [facility] Comment on above: Performed By: #### U MICRO, ERUR #### [facility] [address] [place] [address] Dr. Alfredo Lizama Basophils/100 WBC (Bld) 0.5 % Normal 0.2-2.0 [facility] Comment on above: Performed By: #### U MICRO, ERUR #### [facility] [address] [place] [address] Dr. Alfredo Lizama EO # 0.4 103/ul Normal 0.0-0.7 [facility] Comment on above: Performed By: #### U MICRO, ERUR #### [facility] [address] [place] [address] Dr. Alfredo Lizama Eosinophils/100 WBC (Bld) 3.5 % Normal 0.9-7.0 [facility] Comment on above: Performed By: #### U MICRO, ERUR #### [facility] [address] [place] [address] Dr. Alfredo Lizama Erythrocyte distribution width (RBC) [Ratio] 13.2 % Normal 11.0-15.0 [facility] Comment on above: Performed By: #### U MICRO, ERUR #### [facility] [address] [place] [address] Dr. Alrfedo Lizama Hematocrit (Bld) [Volume fraction] 44.0 % Normal 36.0-48.0 [facility] Comment on above: Performed By: #### U MICRO, ERUR #### [facility] [address] [place] [address] Dr. Alfredo Lizama Hemoglobin (Bld) [Mass/Vol] 14.8 g/dL Normal 12.0-16.0 [facility] Comment on above: Performed By: #### U MICRO, ERUR #### [facility] [address] [place] [address] Dr. Alfredo Lizama IG # 0.03 10e3/ul Normal 0.00-0.03 [facility] Comment on above: Performed By: #### U MICRO, ERUR #### [facility] [address] [place] [address] Dr. Alfredo Lizama IG % 0.2 % Normal 0.0-0.5 [facility] Comment on above: Performed By: #### U MICRO, ERUR #### [facility] [address] [place] [address] Dr. Alfredo Lizama LYMPH # 3.8 103/ul Normal 1.2-3.8 [facility] Comment on above: Performed By: #### U MICRO, ERUR #### [facility] [address] [place] [address] Dr. Alfredo Lizama Lymphocytes/100 WBC (Bld) 31.3 % Normal 20.5-60.0 [facility] Comment on above: Performed By: #### U MICRO, ERUR #### [facility] [address] [place] [address] Dr. Alfredo Lizama MANUAL DIFF REQ NO Normal [facility] Comment on above: Performed By: #### U MICRO, ERUR #### [facility] [address] [place] [address] Dr. Alfredo Lizama MCH (RBC) [Entitic mass] 28.8 pg Normal 26.7-34.0 [facility] Comment on above: Performed By: #### U MICRO, ERUR #### [facility] [address] [place] [address] Dr. Alfredo Lizama MCHC (RBC) [Mass/Vol] 33.6 g/dL Normal 29.9-35.2 [facility] Comment on above: Performed By: #### U MICRO, ERUR #### [facility] [address] [place] [address] Dr. Alfredo Lizama MCV (RBC) [Entitic vol] 85.8 fL Normal 81.0-99.0 [facility] Comment on above: Performed By: #### U MICRO, ERUR #### [facility] [address] [place] [address] Dr. Alfredo Lizama MONO # 0.7 103/ul Normal 0.3-0.8 [facility] Comment on above: Performed By: #### U MICRO, ERUR #### [facility] [address] [place] [address] Dr. Alfredo Lizama Monocytes/100 WBC (Bld) 5.8 % Normal 1.7-12.0 [facility] Comment on above: Performed By: #### U MICRO, ERUR #### [facility] [address] [place] [address] Dr. Alfredo Lizama NEUT # 7.1 103/ul Critically high 1.4-6.5 [facility] Comment on above: Performed By: #### U MICRO, ERUR #### [facility] [address] [place] [address] Dr. Alfredo Lizama Neutrophils/100 WBC (Bld) 58.7 % Normal 43.0-75.0 [facility] Comment on above: Performed By: #### U MICRO, ERUR #### [facility] [address] [address] [address] Alfredo Lizama Platelet mean volume (Bld) [Entitic vol] 9.6 fL Normal 9.5-13.5 [facility] Comment on above: Performed By: #### U MICRO, ERUR #### [facility] [address] [address] [address] Alfredo Lizama PLT 269 103/ul Normal 150-450 [facility] Comment on above: Performed By: #### U MICRO, ERUR #### [facility] [address] [address] [address] Alfredo Lizama RBC 5.13 106/ul Normal 4.20-5.40 [facility] Comment on above: Performed By: #### U MICRO, ERUR #### [facility] [address] [address] [address] Alfredo Lizama WBC 12.2 103/ul Critically high 4.0-11.0 [facility] Comment on above: Performed By: #### U MICRO, ERUR #### [facility] [address] [address] ABD/PELV W CONon [...] KORIN STANLEY Date: 2022-05-07 14:00 Normal [facility] ER URINE PROFILEon 2 Bilirubin Ql (U) Negative Normal NEGATIVE [facility] Comment on above: Performed By: #### U MICRO, ERUR #### [facility] [address] [address] [address] Alfredo Lizama Clarity (U) CLOUDY Abnormal CLEAR [facility] Comment on above: Performed By: #### U MICRO, ERUR #### [facility] [address] [address] [address] Alfredo Lizama Color (U) LT. YELLOW Normal YELLOW [facility] Comment on above: Performed By: #### U MICRO, ERUR #### [facility] [address] [address] [address] Alfredo RAYMUNDO A micrscopic examina tion will be performed if indicated. Normal [facility] Comment on above: Performed By: #### U MICRO, ERUR #### [facility] [address] [address] [address] Alfredo Lizama Glucose Ql (U) Negative Normal NEGATIVE [facility] Comment on above: Performed By: #### U MICRO, ERUR #### [facility] [address] [address] [address] Alfredo Lizama Hemoglobin Ql (U) LARGE Abnormal NEGATIVE [facility] Comment on above: Performed By: #### U MICRO, ERUR #### [facility] [address] [address] [address] Alfredo Lizama Ketones Ql (U) Negative Normal NEGATIVE [facility] Comment on above: Performed By: #### U MICRO, ERUR #### [facility] [address] [address] [address] Alfredo Lizama LEUKOCYTES MODERATE Abnormal NEGATIVE [facility] Comment on above: Performed By: #### U MICRO, ERUR #### [facility] [address] [address] [address] Alfredo Lizama Nitrite Ql (U) Positive Abnormal NEGATIVE [facility] Comment on above: Performed By: #### U MICRO, ERUR #### [facility] [address] [address] [address] Alfredo Lizama pH (U) 8.5 [pH] Normal 5-9 [facility] Comment on above: Performed By: #### U MICRO, ERUR #### [facility] [address] [address] [address] Alfredo Lizama Protein (U) [Mass/Vol] 100 mg/dL Abnormal NEGATIVE/ TRACE [facility] Comment on above: Performed By: #### U MICRO, ERUR #### [facility] [address] [address] [address] Alfredo Lizmaa SPEC GRAVITY 1.015 Normal 1.005-<=1.0 25 [facility] Comment on above: Performed By: #### U MICRO, ERUR #### [facility] [address] [place] [address] Dr. Alfredo Lizama UR MICRO IND INDICATED Normal [facility] Comment on above: Performed By: #### U MICRO, ERUR #### [facility] [address] [place] [address] Dr. Alfredo Lizama Urobilinogen Qn (U) 1.0 {Tesha'U}/dL Normal 0.2 - 1. 0 [facility] Comment on above: Performed By: #### U MICRO, ERUR #### [facility] [address] [place] [address] Dr. Alfredo Lizama PROF CHEM 8 (BAS METB)on Anion gap [Moles/Vol] 12.0 mmol/L Normal [facility] Comment on above: Performed By: #### U MICRO, ERUR #### [facility] [address] [place] [address] Dr. Alfredo Lizama Calcium [Mass/Vol] 8.6 mg/dL Normal 8.5-10.1 [facility] Comment on above: Performed By: #### U MICRO, ERUR #### [facility] [address] [place] [address] Dr. Alfredo Lizama Chloride [Moles/Vol] 101 mmol/L Normal 98-107 [facility] Comment on above: Performed By: #### U MICRO, ERUR #### [facility] [address] [place] [address] Dr. Alfredo Lizama CO2 [Moles/Vol] 28.0 mmol/L Normal 21.0-32.0 [facility] Comment on above: Performed By: #### U MICRO, ERUR #### [facility] [address] [place] [address] Dr. Alfredo Lizama Creatinine [Mass/Vol] 0.77 mg/dL Normal 0.55-1.02 [facility] Comment on above: Performed By: #### U MICRO, ERUR #### [facility] [address] [place] [address] Dr. Alfredo Lizama EGFR-AF BELIZEAN >60 Normal >=60 [facility] Comment on above: Performed By: #### U MICRO, ERUR #### [facility] [address] [address] [address] Alfredo Lizama EGFR-NON AF BELIZEAN >60 Normal >=60 [facility] Comment on above: Performed By: #### U MICRO, ERUR #### [facility] [address] [address] [address] Alfredo Lizama Glucose [Mass/Vol] 96 mg/dL Normal 74-106 [facility] Comment on above: Performed By: #### U MICRO, ERUR #### [facility] [address] [address] [address] Alfredo Lizama Potassium [Moles/Vol] 4.0 mmol/L Normal 3.5-5.1 [facility] Comment on above: Performed By: #### U MICRO, ERUR #### [facility] [address] [address] [address] Alfredo Lizama Sodium [Moles/Vol] 137 mmol/L Normal 136-145 [facility] Comment on above: Performed By: #### U MICRO, ERUR #### [facility] [address] [address] [address] Alfredo Lizama Urea nitrogen [Mass/Vol] 7.0 mg/dL Normal 7.0-18.0 [facility] Comment on above: Performed By: #### U MICRO, ERUR #### [facility] [address] [address] [address] Alfredo Lizama Urea nitrogen/Creatinine [Mass ratio] 9.1 mg/mg Normal [facility] Comment on above: Performed By: #### U MICRO, ERUR #### [facility] [address] [address] [address] Alfredo Lizama URINE MICROSCOPIC ONLYon BACTERIA MODERATE Abnormal NONE SEEN [facility] Comment on above: Performed By: #### U MICRO, ERUR #### [facility] [address] [address] [address] Alfredo Lizama Bacteria identified Cx Nom (U) INDICATED Normal [facility] Comment on above: Performed By: #### U MICRO, ERUR #### [facility] [address] [address] [address] Alfredo Lizama CAST NONE SEEN Normal NONE SEEN [facility] Comment on above: Performed By: #### U MICRO, ERUR #### [facility] [address] [address] [address] Alfredo Lizama Crystals LM Nom (Urine sed) NONE SEEN Normal NONE SEEN [facility] Comment on above: Performed By: #### U MICRO, ERUR #### [facility] [address] [address] [address] Alfredo Lizama Epithelial cells LM Ql (Urine sed) FEW Abnormal NONE SEEN /RARE [facility] Comment on above: Performed By: #### U MICRO, ERUR #### [facility] [address] [place] [address] Dr. Alfredo Lizama MUCOUS NONE SEEN Normal NONE SEEN [facility] Comment on above: Performed By: #### U MICRO, ERUR #### [facility] [address] [place] [address] Dr. Alfredo Lizama RBC 2-5 Abnormal 0-2 [facility] Comment on above: Performed By: #### U MICRO, ERUR #### [facility] [address] [place] [address] Dr. Alfredo Lizama WBC 10-20 Abnormal NONE SEEN [facility] Comment on above: Performed By: #### U MICRO, ERUR #### [facility] [address] [place] [address] Dr. Alfredo Lizama CULTURE URINEon 04-10-2022 CULTURE [...] Trimethoprim/Sulfamethoxazo le <=20 S F Normal [facility] Comment on above: Performed By: #### U MICRO, ERUR #### [facility] [address] [place] [address] Dr. Alfredo Lizama ER URINE PROFILEon 2 Bilirubin Ql (U) Negative Normal NEGATIVE [facility] Comment on above: Performed By: #### U MICRO, ERUR #### [facility] [address] [place] [address] Dr. Alfredo Lizama Clarity (U) CLOUDY Abnormal CLEAR [facility] Comment on above: Performed By: #### U MICRO, ERUR #### [facility] [address] [place] [address] Dr. Alfredo Lizama Color (U) YELLOW Normal YELLOW [facility] Comment on above: Performed By: #### U MICRO, ERUR #### [facility] [address] [place] [address] Dr. Alfredo Lizama ERUAHD A micrscopic examina tion will be performed if indicated. Normal [facility] Comment on above: Performed By: #### U MICRO, ERUR #### [facility] [address] [place] [address] Dr. Alfredo Lizama Glucose Ql (U) Negative Normal NEGATIVE [facility] Comment on above: Performed By: #### U MICRO, ERUR #### [facility] [address] [address] [address] Alfredo Lizama Hemoglobin Ql (U) SMALL Abnormal NEGATIVE [facility] Comment on above: Performed By: #### U MICRO, ERUR #### [facility] [address] [place] [address] Dr. Alfredo Lizama Ketones Ql (U) Negative Normal NEGATIVE [facility] Comment on above: Performed By: #### U MICRO, ERUR #### [facility] [address] [place] [address] Dr. Alfredo Lizama LEUKOCYTES LARGE Abnormal NEGATIVE [facility] Comment on above: Performed By: #### U MICRO, ERUR #### [facility] [address] [place] [address] Dr. Alfredo Lizama Nitrite Ql (U) Negative Normal NEGATIVE [facility] Comment on above: Performed By: #### U MICRO, ERUR #### [facility] [address] [place] [address] Dr. Alfredo Lizama pH (U) 7.0 [pH] Normal 5-9 [facility] Comment on above: Performed By: #### U MICRO, ERUR #### [facility] [address] [place] [address] Dr. Alfredo Lizama SPEC GRAVITY <=1.005 Abnormal 1.005-<=1.0 25 [facility] Comment on above: Performed By: #### U MICRO, ERUR #### [facility] [address] [place] [address] Dr. Alfredo Lizama UA PROTEIN Negative Normal NEGATIVE/ TRACE [facility] Comment on above: Performed By: #### U MICRO, ERUR #### [facility] [address] [place] [address] Dr. Alfredo Lizama UR MICRO IND INDICATED Normal [facility] Comment on above: Performed By: #### U MICRO, ERUR #### [facility] [address] [place] [address] Dr. Alfredo Lizama Urobilinogen Qn (U) 0.2 {Tesha'U}/dL Normal 0.2 - 1. 0 [facility] Comment on above: Performed By: #### U MICRO, ERUR #### [facility] [address] [address] [address] Alfredo Lizama URINE MICROSCOPIC ONLYon BACTERIA MODERATE Abnormal NONE SEEN [facility] Comment on above: Performed By: #### U MICRO, ERUR #### [facility] [address] [place] [address] Dr. Alfredo Lizama Bacteria identified Cx Nom (U) INDICATED Normal [facility] Comment on above: Performed By: #### U MICRO, ERUR #### [facility] [address] [address] [address] Alfredo Lizama CAST NONE SEEN Normal NONE SEEN [facility] Comment on above: Performed By: #### U MICRO, ERUR #### [facility] [address] [place] [address] Dr. Alfredo Lizama Crystals LM Nom (Urine sed) NONE SEEN Normal NONE SEEN [facility] Comment on above: Performed By: #### U MICRO, ERUR #### [facility] [address] [place] [address] Dr. Alfredo Lizama Epithelial cells LM Ql (Urine sed) FEW Abnormal NONE SEEN /RARE [facility] Comment on above: Performed By: #### U MICRO, ERUR #### [facility] [address] [place] [address] Dr. Alfredo Lizama MUCOUS NONE SEEN Normal NONE SEEN [facility] Comment on above: Performed By: #### U MICRO, ERUR #### [facility] [address] [address] [address] Alfredo Lizama RBC 5-10 Abnormal 0-2 [facility] Comment on above: Performed By: #### U MICRO, ERUR #### [facility] [address] [place] [address] Dr. Alfredo Lizama WBC (U) [#/Vol] /uL Abnormal NONE SEEN [facility] Comment on above: Performed By: #### U MICRO, ERUR #### [facility] [address] [place] [address] Dr. Alfredo Lizama Basic Metabolic Panelon 03-1 Calcium [Mass/Vol] 8.9 mg/dL Normal 8.2-10.2 [facility] Comment on above: Performed By: #### C BC, CMP, PAB #### [address] Chloride [Moles/Vol] 101 mmol/L Normal 95-114 [facility] Comment on above: Performed By: #### C BC, CMP, PAB #### [address] CO2 [Moles/Vol] 29.0 mmol/L Normal 22.0-30.0 [facility] Comment on above: Performed By: #### C BC, CMP, PAB #### [address] Creatinine [Mass/Vol] 0.48 mg/dL Normal 0.44-1.03 [facility] Comment on above: Performed By: #### C BC, CMP, PAB #### [address] Creatinine Clr Calc Pharmacy 150.29 [facility] Comment on above: Result Comment: PERF ORMED BY: [place] [address] PATHOLOGIST OFFICE MACHINE TECHNICIAN HUY COX M.D. Performed By: #### C BC, CMP, PAB #### [address] Estimated GFR ( July > 60 [facility] Comment on above: Result Comment: GFR estimated reference range: According to KDOQI guidelines, <60 ml/min/1.73m2 is sufficient to diagnose a patient with chronic kidney disease. Performed By: #### C BC, CMP, PAB #### [address] Estimated GFR (Non- Am > 60 [facility] Comment on above: Performed By: #### C BC, CMP, PAB #### [address] Glucose [Mass/Vol] 111 mg/dL High 70-100 [facility] Comment on above: Result Comment: [place] Glucose Reference Range is dependent on time and content of last meal. Glucose of more than 200 mg/dL in a nonstressed, ambulatory subject supports the diagnosis of Diabetes Mellitus. ADA recommended reference range Performed By: #### C BC, CMP, PAB #### [facility] [address] Potassium [Moles/Vol] 3.6 mmol/L Normal 3.5-5.1 [facility] Comment on above: Performed By: #### C BC, CMP, PAB #### [facility] [address] Sodium [Moles/Vol] 138 mmol/L Normal 136-146 [facility] Comment on above: Performed By: #### C BC, CMP, PAB #### [facility] [address] [place] [address] [place] Urea nitrogen [Mass/Vol] 10 mg/dL Normal 9-23 [facility] Comment on above: Performed By: #### C BC, CMP, PAB #### [facility] [address] Complete Blood Count Auto Di ffon 11-19-2021 Basophils (Bld) [#/Vol] 0.1 10*3/uL Normal 0.0-0.2 [facility] Comment on above: Result Comment: PERF ORMED BY: [place] [address] PATHOLOGIST OFFICE MACHINE TECHNICIAN HUY COX M.D. Performed By: #### C BC, CMP, PAB #### [facility] [address] [place] [address] [place] Basophils/100 WBC (Bld) 0.8 % Normal . [facility] Comment on above: Performed By: #### C BC, CMP, PAB #### [facility] [address] [place] [address] [place] Eosinophils (Bld) [#/Vol] 0.4 10*3/uL Normal 0.0-0.45 [facility] Comment on above: Performed By: #### C BC, CMP, PAB #### [facility] [address] [place] [address] [place] Eosinophils/100 WBC (Bld) 5.8 % Normal . [facility] Comment on above: Performed By: #### C BC, CMP, PAB #### [facility] [address] Erythrocyte distribution width (RBC) [Ratio] 14.3 % Normal 11.9-15.3 [facility] Comment on above: Performed By: #### C BC, CMP, PAB #### [address] Hematocrit (Bld) [Volume fraction] 36.0 % Normal 34.0-46.4 [facility] Comment on above: Performed By: #### C BC, CMP, PAB #### [address] Hemoglobin (Bld) [Mass/Vol] 11.9 g/dL Normal 11.8-15.4 [facility] Comment on above: Performed By: #### C BC, CMP, PAB #### [place] [address] [place] Lymphocytes (Bld) [#/Vol] 2.7 10*3/uL Normal 1.00-4.8 [facility] Comment on above: Performed By: #### C BC, CMP, PAB #### [place] [address] [place] Lymphocytes/100 WBC (Bld) 37.6 % Normal . [facility] Comment on above: Performed By: #### C BC, CMP, PAB #### [facility] [address] [place] [address] [place] MCH (RBC) [Entitic mass] 28.1 pg Normal 24.7-34.3 [facility] Comment on above: Performed By: #### C BC, CMP, PAB #### [address] MCV (RBC) [Entitic vol] 85.3 fL Normal 80-100 [facility] Comment on above: Performed By: #### C BC, CMP, PAB #### [facility] [address] [place] [id number] [place] Mean Corpuscular HGB Conc 32.9 g/dL Normal 32.0-35.0 [facility] Comment on above: Performed By: #### C BC, CMP, PAB #### [facility] [address] [id number] [place] Monocytes (Bld) [#/Vol] 0.4 10*3/uL Normal 0.0-0.8 [facility] Comment on above: Performed By: #### C BC, CMP, PAB #### [facility] [address] [id number] [place] Monocytes/100 WBC (Bld) 5.2 % Normal . [facility] Comment on above: Performed By: #### C BC, CMP, PAB #### [facility] [address] [place] [address] [place] Neutrophils (Bld) [#/Vol] 3.7 10*3/uL Normal 1.8-7.7 [facility] Comment on above: Performed By: #### C BC, CMP, PAB #### [facility] [address] [place] [id number] [place] Neutrophils/100 WBC (Bld) 50.6 % Normal . [facility] Comment on above: Performed By: #### C BC, CMP, PAB #### [facility] [address] [id number] [place] Nucleated RBC/100 WBC (Bld) [Ratio] 0.0 % Normal 0-0.5 [facility] Comment on above: Performed By: #### C BC, CMP, PAB #### [facility] [address] [id number] [place] Platelet mean volume (Bld) [Entitic vol] 7.6 fL Normal 6.3-10.7 [facility] Comment on above: Performed By: #### C BC, CMP, PAB #### [facility] [address] [id number] [place] Platelets (Bld) [#/Vol] 252 10*3/uL Normal 150-450 [facility] Comment on above: Performed By: #### C BC, CMP, PAB #### [facility] [address] [place] [address] RBC (Bld) [#/Vol] 4.22 10*6/uL Normal 3.60-5.00 [facility] Comment on above: Performed By: #### C BC, CMP, PAB #### [address] WBC (Bld) [#/Vol] 7.2 10*3/uL Normal 4.5-11.0 [facility] Comment on above: Performed By: #### C BC, CMP, PAB #### [address] Ammoniaon 11-11-2021 Ammonia (P) [Moles/Vol] 26 umol/L Normal 11-35 [facility] Comment on above: Result Comment: PERF ORMED BY: [place] [address] PATHOLOGIST OFFICE MACHINE TECHNICIAN HUY COX M.D. Performed By: #### C BC, CMP, PAB #### [address] Hepatic Panelon 11-11-2021 Albumin [Mass/Vol] 3.0 g/dL Low 3.2-5.5 [facility] Comment on above: Performed By: #### C BC, CMP, PAB #### [address] Albumin/Globulin [Mass ratio] 1.0 {ratio} Normal [facility] Comment on above: Performed By: #### C BC, CMP, PAB #### [address] ALP [Catalytic activity/Vol] 187 U/L High 32-92 [facility] Comment on above: Result Comment: PERF ORMED BY: [place] [address] PATHOLOGIST OFFICE MACHINE TECHNICIAN JIANLAN SUN M.D. Performed By: #### C BC, CMP, PAB #### [facility] [address] ALT [Catalytic activity/Vol] 54 U/L Normal 10-60 [facility] Comment on above: Performed By: #### C BC, CMP, PAB #### [facility] [address] [place] [id number] [facility] AST [Catalytic activity/Vol] 39 U/L Normal 10-42 [facility] Comment on above: Performed By: #### C BC, CMP, PAB #### [facility] [address] Bilirubin [Mass/Vol] 0.3 mg/dL Normal 0.3-1.2 [facility] Comment on above: Performed By: #### C BC, CMP, PAB #### [address] Bilirubin,Indirect Not performed Normal [facility] Comment on above: Performed By: #### C BC, CMP, PAB #### [address] Bilirubin.indirect [Mass/Vol] mg/dL Normal 0.0-0.4 [facility] Comment on above: Performed By: #### C BC, CMP, PAB #### [address] Globulin (S) [Mass/Vol] 3.0 g/dL Normal [facility] Comment on above: Performed By: #### C BC, CMP, PAB #### [address] Protein [Mass/Vol] 6.0 g/dL Low 6.1-7.9 [facility] Comment on above: Performed By: #### C BC, CMP, PAB #### [address] Hepatitis Acute Panelon 03-0 HBsAg Screen Negative Normal Negative [facility] Comment on above: Performed By: #### C BC, CMP, PAB #### [place] [address] [place] Hepatitis A Antibody IgM Negative Normal Negative [facility] Comment on above: Performed By: #### C BC, CMP, PAB #### [address] Hepatitis B Core Antibody IgM Negative Normal Negative [facility] Comment on above: Performed By: #### C BC, CMP, PAB #### [address] Hepatitis C Virus Antibody 0.2 Normal 0.0-0.9 [facility] Comment on above: Performed By: #### C BC, CMP, PAB #### [address] Interpretation Hepatitis C Normal . [facility] Comment on above: Result Comment: Nega tive Not infected with HCV, unless recent infection is suspected or other evidence exists to indicate HCV infection. Performed at: - [facility] [address] [id number] Computer [employer] Professor: Pedro Luis José PhD, Phone: [phone] PERFORMED BY: [place] [address] PATHOLOGIST OFFICE MACHINE TECHNICIAN HUY COX M.D. Performed By: #### C BC, CMP, PAB #### [address] [place] liveron 11-11-2021 liver [facility] [place] [address] [place] [address] Ultrasound Report Signed Patient: Morales Lee MR#: [id number] : 1975 Acct:[id number] Age/Sex: 46 / F ADM Date: 10/29/21 Loc: Room: 4H2538-8 Type: ADM IN Attending Dr: Richard Acevedo [...] Alexandru Pond M.D.11/11/2021 10:23 AM Dictation Location: [place] [address] Tech: Ermelinda Diaz Transcribed By: CORTNEY 11/11/21 1023 Dictated By: Alexandru Pond DO 11/11/21 1018 Signed By: 11/11/21 1023 Normal [facility] Complete Blood Count Auto Di ffon 11-10-2021 Basophils (Bld) [#/Vol] 0.1 10*3/uL Normal 0.0-0.2 [facility] Comment on above: Result Comment: PERF ORMED BY: [place] [address] PATHOLOGIST OFFICE MACHINE TECHNICIAN HUY COX M.D. Performed By: #### C BC #### [address] Basophils/100 WBC (Bld) 1.2 % Normal . [facility] Comment on above: Performed By: #### C BC #### [facility] [address] [place] [address] [place] Eosinophils (Bld) [#/Vol] 0.3 10*3/uL Normal 0.0-0.45 [facility] Comment on above: Performed By: #### C BC #### [address] Eosinophils/100 WBC (Bld) 5.9 % Normal . [facility] Comment on above: Performed By: #### C BC #### [address] Erythrocyte distribution width (RBC) [Ratio] 14.2 % Normal 11.9-15.3 [facility] Comment on above: Performed By: #### C BC #### [facility] [address] Hematocrit (Bld) [Volume fraction] 37.1 % Normal 34.0-46.4 [facility] Comment on above: Performed By: #### C BC #### [address] Hemoglobin (Bld) [Mass/Vol] 12.3 g/dL Normal 11.8-15.4 [facility] Comment on above: Performed By: #### C BC #### [address] Lymphocytes (Bld) [#/Vol] 2.0 10*3/uL Normal 1.00-4.8 [facility] Comment on above: Performed By: #### C BC #### [address] Lymphocytes/100 WBC (Bld) 36.5 % Normal . [facility] Comment on above: Performed By: #### C BC #### [address] MCH (RBC) [Entitic mass] 28.6 pg Normal 24.7-34.3 [facility] Comment on above: Performed By: #### C BC #### [address] MCV (RBC) [Entitic vol] 86.5 fL Normal 80-100 [facility] Comment on above: Performed By: #### C BC #### [address] Mean Corpuscular HGB Conc 33.1 g/dL Normal 32.0-35.0 [facility] Comment on above: Performed By: #### C BC #### [address] Monocytes (Bld) [#/Vol] 0.3 10*3/uL Normal 0.0-0.8 [facility] Comment on above: Performed By: #### C BC #### [facility] [address] [place] [address] [place] Monocytes/100 WBC (Bld) 5.3 % Normal . [facility] Comment on above: Performed By: #### C BC #### [facility] [address] [place] [address] [place] Neutrophils (Bld) [#/Vol] 2.8 10*3/uL Normal 1.8-7.7 [facility] Comment on above: Performed By: #### C BC #### [facility] [address] Neutrophils/100 WBC (Bld) 51.1 % Normal . [facility] Comment on above: Performed By: #### C BC #### [facility] [address] [place] [address] [place] Nucleated RBC/100 WBC (Bld) [Ratio] 0.1 % Normal 0-0.5 [facility] Comment on above: Performed By: #### C BC #### [facility] [address] [place] [address] [place] Platelet mean volume (Bld) [Entitic vol] 7.8 fL Normal 6.3-10.7 [facility] Comment on above: Performed By: #### C BC #### [facility] [address] [place] [address] [place] Platelets (Bld) [#/Vol] 214 10*3/uL Normal 150-450 [facility] Comment on above: Performed By: #### C BC #### [facility] [address] [place] [address] [place] RBC (Bld) [#/Vol] 4.28 10*6/uL Normal 3.60-5.00 [facility] Comment on above: Performed By: #### C BC #### [facility] [address] [place] [address] [place] WBC (Bld) [#/Vol] 5.4 10*3/uL Normal 4.5-11.0 [facility] Comment on above: Performed By: #### C BC #### [facility] [address] Comprehensive Metabolic Pane shree 11-10-2021 Albumin [Mass/Vol] 2.9 g/dL Low 3.2-5.5 [facility] Comment on above: Performed By: #### C BC, CMP, PAB #### [facility] [address] Albumin/Globulin [Mass ratio] 0.9 {ratio} Normal [facility] Comment on above: Performed By: #### C BC, CMP, PAB #### [facility] [address] ALP [Catalytic activity/Vol] 201 U/L High 32-92 [facility] Comment on above: Performed By: #### C BC, CMP, PAB #### [facility] [address] ALT [Catalytic activity/Vol] 67 U/L High 10-60 [facility] Comment on above: Performed By: #### C BC, CMP, PAB #### [facility] [address] AST [Catalytic activity/Vol] 66 U/L High 10-42 [facility] Comment on above: Performed By: #### C BC, CMP, PAB #### [facility] [address] [place] [address] [place] Bilirubin [Mass/Vol] 0.4 mg/dL Normal 0.3-1.2 [facility] Comment on above: Performed By: #### C BC, CMP, PAB #### [facility] [address] [place] [id number] [place] Calcium [Mass/Vol] 8.7 mg/dL Normal 8.2-10.2 [facility] Comment on above: Performed By: #### C BC, CMP, PAB #### [facility] [address] [place] [address] [place] Chloride [Moles/Vol] 100 mmol/L Normal 95-114 [facility] Comment on above: Performed By: #### C BC, CMP, PAB #### [facility] [address] CO2 [Moles/Vol] 26.4 mmol/L Normal 22.0-30.0 [facility] Comment on above: Performed By: #### C BC, CMP, PAB #### [facility] [address] Creatinine [Mass/Vol] 0.50 mg/dL Normal 0.44-1.03 [facility] Comment on above: Performed By: #### C BC, CMP, PAB #### [facility] [address] Creatinine Clr Calc Pharmacy 142.11 [facility] Comment on above: Result Comment: PERF ORMED BY: [place] [address] PATHOLOGIST OFFICE MACHINE TECHNICIAN HUY COX M.D. Performed By: #### C BC, CMP, PAB #### [facility] [address] Estimated GFR ( July > 60 [facility] Comment on above: Result Comment: GFR estimated reference range: According to KDOQI guidelines, <60 ml/min/1.73m2 is sufficient to diagnose a patient with chronic kidney disease. Performed By: #### C BC, CMP, PAB #### [facility] [address] Estimated GFR (Non- Am > 60 [facility] Comment on above: Performed By: #### C BC, CMP, PAB #### [facility] [address] [place] [address] [place] Globulin (S) [Mass/Vol] 3.1 g/dL [facility] Comment on above: Performed By: #### C BC, CMP, PAB #### [facility] [address] Glucose [Mass/Vol] 110 mg/dL High 70-100 [facility] Comment on above: Result Comment: [place] Glucose Reference Range is dependent on time and content of last meal. Glucose of more than 200 mg/dL in a nonstressed, ambulatory subject supports the diagnosis of Diabetes Mellitus. ADA recommended reference range Performed By: #### C DARIUS PATEL, PAB #### [facility] [address] [place] [id number] [facility] Potassium [Moles/Vol] 4.0 mmol/L Normal 3.5-5.1 [facility] Comment on above: Performed By: #### C DARIUS PATEL, PAB #### [facility] [address] [place] [address] [place] Protein [Mass/Vol] 6.0 g/dL Low 6.1-7.9 [facility] Comment on above: Performed By: #### C DARIUS PATEL, PAB #### [address] Sodium [Moles/Vol] 136 mmol/L Normal 136-146 [facility] Comment on above: Performed By: #### C DARIUS PATEL, PAB #### [facility] [address] [place] [address] [place] Urea nitrogen [Mass/Vol] 8 mg/dL Low 9-23 [facility] Comment on above: Performed By: #### C DARIUS PATEL, PAB #### [place] [id number] [place] Dipstick and Microscopicon 0 11-10-2021 Appearance (U) Turbid Critically abnormal Clear [facility] Comment on above: Order Comment: Name Collection Type:: Alvares Catheter Performed By: #### C JORGE CMP, PAB #### [facility] [address] [place] [id number] [place] Bacteria,Urine 3+ High None Seen [facility] Comment on above: Order Comment: Name Collection Type:: Alvares Catheter Performed By: #### C DARIUS PATEL, PAB #### [facility] [address] [place] [id number] [place] Bilirubin,Urine Negative Normal Negative [facility] Comment on above: Order Comment: Name Collection Type:: Alvares Catheter Performed By: #### C BC, CMP, PAB #### [facility] [address] [place] [address] [place] Color (U) Yellow Normal Yellow [facility] Comment on above: Order Comment: Name Collection Type:: Alvares Catheter Performed By: #### C BC, CMP, PAB #### [facility] [address] [place] [address] Glucose Ql (U) Normal Normal Normal [facility] Comment on above: Order Comment: Name Collection Type:: Alvares Catheter Performed By: #### C BC, CMP, PAB #### [place] [address] [place] Hyaline Casts,Urine None Seen Normal 0-1 [facility] Comment on above: Order Comment: Name Collection Type:: Alvares Catheter Performed By: #### C BC, CMP, PAB #### [address] Ketones Ql (U) Negative Normal Negative [facility] Comment on above: Order Comment: Name Collection Type:: Alvares Catheter Performed By: #### C BC, CMP, PAB #### [address] Leukocyte esterase Test strip Ql (U) 3+ High Negative [facility] Comment on above: Order Comment: Name Collection Type:: Alvares Catheter Performed By: #### C BC, CMP, PAB #### [facility] [address] [place] [address] [place] Nitrite,Urine Positive High Negative [facility] Comment on above: Order Comment: Name Collection Type:: Alvares Catheter Performed By: #### C BC, CMP, PAB #### [facility] [address] [place] [address] [place] Occult Blood,Urine 2+ High Negative [facility] Comment on above: Order Comment: Name Collection Type:: Alvares Catheter Result Comment: PERF ORMED BY: [place] [address] PATHOLOGIST OFFICE MACHINE TECHNICIAN HUY COX M.D. Performed By: #### C BC, CMP, PAB #### [facility] [address] [place] [address] Other Casts,Urine None Seen Normal None Seen [facility] Comment on above: Order Comment: Name Collection Type:: Alvares Catheter Result Comment: PERF ORMED BY: [place] [address] PATHOLOGIST OFFICE MACHINE TECHNICIAN HUY COX M.D. Performed By: #### C BC, CMP, PAB #### [address] pH (U) 8.5 [pH] Normal 5.0-9.0 [facility] Comment on above: Order Comment: Name Collection Type:: Alvares Catheter Performed By: #### C BC, CMP, PAB #### [address] Protein,Urine Negative Normal Negative [facility] Comment on above: Order Comment: Name Collection Type:: Alvares Catheter Performed By: #### C BC, CMP, PAB #### [address] RBC,Urine 1-2 Normal 0-4 [facility] Comment on above: Order Comment: Name Collection Type:: Alvares Catheter Performed By: #### C BC, CMP, PAB #### [address] Specificy [place],Urine 1.006 Normal 1.001-1.030 [facility] Comment on above: Order Comment: Name Collection Type:: Alvares Catheter Performed By: #### C BC, CMP, PAB #### [address] Squamous Epithelial Cell,Urine 3-4 High 0-2 [facility] Comment on above: Order Comment: Name Collection Type:: Alvares Catheter Performed By: #### C BC, CMP, PAB #### [address] Triple Phosphate Crystal,Urine 2+ Normal [facility] Comment on above: Order Comment: Name Collection Type:: Alvares Catheter Performed By: #### C BC, CMP, PAB #### [address] Urobilinogen,Urine Normal Normal Normal [facility] Comment on above: Order Comment: Name Collection Type:: Alvares Catheter Performed By: #### C JORGE, DARIUS, PAB #### [facility] [address] WBC,Urine 20-49 High 0-4 [facility] Comment on above: Order Comment: Name Collection Type:: Alvares Catheter Performed By: #### C JORGE, DARIUS, PAB #### [facility] [address] [place] [address] Urine Cultureon 11-10-2021 Bacteria identified Cx Nom (U) ORGANISM: Providencia rettgeri (O:PRORET) [place] Count >100,000 Aerobic JOSE Charge (NUC86) SUSCEPTIBILITY [...] RESISTANT TO ALL B-LACTAM DRUGS. PERFORMED BY: [place] [address] PATHOLOGIST OFFICE MACHINE TECHNICIAN HUY COX M.D. [facility] Comment on above: Performed By: #### C BC, CMP, PAB #### [facility] [address] Basic Metabolic Panelon 03-0 Calcium [Mass/Vol] 8.7 mg/dL Normal 8.2-10.2 [facility] Comment on above: Performed By: #### B MP, CBC #### [facility] [address] Chloride [Moles/Vol] 102 mmol/L Normal 95-114 [facility] Comment on above: Performed By: #### B MP, CBC #### [address] CO2 [Moles/Vol] 25.5 mmol/L Normal 22.0-30.0 [facility] Comment on above: Performed By: #### B MP, CBC #### [address] Creatinine [Mass/Vol] 0.71 mg/dL Normal 0.44-1.03 [facility] Comment on above: Performed By: #### B MP, CBC #### [place] [address] [place] Creatinine Clr Calc Pharmacy 100.08 [facility] Comment on above: Result Comment: PERF ORMED BY: [place] [address] PATHOLOGIST OFFICE MACHINE TECHNICIAN HUY COX M.D. Performed By: #### B MP, CBC #### [address] Estimated GFR ( July > 60 [facility] Comment on above: Result Comment: GFR estimated reference range: According to KDOQI guidelines, <60 ml/min/1.73m2 is sufficient to diagnose a patient with chronic kidney disease. Performed By: #### B MP, CBC #### [place] [address] [place] Estimated GFR (Non- Am > 60 [facility] Comment on above: Performed By: #### B MP, CBC #### [address] Glucose [Mass/Vol] 104 mg/dL High 70-100 [facility] Comment on above: Result Comment: Ruso Glucose Reference Range is dependent on time and content of last meal. Glucose of more than 200 mg/dL in a nonstressed, ambulatory subject supports the diagnosis of Diabetes Mellitus. ADA recommended reference range Performed By: #### B MP, CBC #### [address] Potassium [Moles/Vol] 4.1 mmol/L Normal 3.5-5.1 [facility] Comment on above: Performed By: #### B MP, CBC #### [address] Sodium [Moles/Vol] 137 mmol/L Normal 136-146 [facility] Comment on above: Performed By: #### B MP, CBC #### [address] Urea nitrogen [Mass/Vol] 10 mg/dL Normal 9-23 [facility] Comment on above: Performed By: #### B MP, CBC #### [address] Complete Blood Count Auto Di ffon 11-06-2021 Basophils (Bld) [#/Vol] 0.1 10*3/uL Normal 0.0-0.2 [facility] Comment on above: Result Comment: PERF ORMED BY: [place] [address] PATHOLOGIST OFFICE MACHINE TECHNICIAN HUY COX M.D. Performed By: #### B MP, CBC #### [place] [address] [place] Basophils/100 WBC (Bld) 0.8 % Normal . [facility] Comment on above: Performed By: #### B MP, CBC #### [place] [address] [place] Eosinophils (Bld) [#/Vol] 0.4 10*3/uL Normal 0.0-0.45 [facility] Comment on above: Performed By: #### B MP, CBC #### [facility] [address] Eosinophils/100 WBC (Bld) 5.5 % Normal . [facility] Comment on above: Performed By: #### B MP, CBC #### [facility] [address] Erythrocyte distribution width (RBC) [Ratio] 14.2 % Normal 11.9-15.3 [facility] Comment on above: Performed By: #### B MP, CBC #### [facility] [address] Hematocrit (Bld) [Volume fraction] 36.0 % Normal 34.0-46.4 [facility] Comment on above: Performed By: #### B MP, CBC #### [address] Hemoglobin (Bld) [Mass/Vol] 12.0 g/dL Normal 11.8-15.4 [facility] Comment on above: Performed By: #### B MP, CBC #### [address] Lymphocytes (Bld) [#/Vol] 2.4 10*3/uL Normal 1.00-4.8 [facility] Comment on above: Performed By: #### B MP, CBC #### [address] Lymphocytes/100 WBC (Bld) 35.2 % Normal . [facility] Comment on above: Performed By: #### B MP, CBC #### [address] MCH (RBC) [Entitic mass] 28.9 pg Normal 24.7-34.3 [facility] Comment on above: Performed By: #### B MP, CBC #### [address] MCV (RBC) [Entitic vol] 86.4 fL Normal 80-100 [facility] Comment on above: Performed By: #### B MP, CBC #### [facility] [address] Mean Corpuscular HGB Conc 33.4 g/dL Normal 32.0-35.0 [facility] Comment on above: Performed By: #### B MP, CBC #### [facility] [address] [place] [address] [place] Monocytes (Bld) [#/Vol] 0.3 10*3/uL Normal 0.0-0.8 [facility] Comment on above: Performed By: #### B MP, CBC #### [facility] [address] Monocytes/100 WBC (Bld) 4.8 % Normal . [facility] Comment on above: Performed By: #### B MP, CBC #### [facility] [address] [place] [address] [place] Neutrophils (Bld) [#/Vol] 3.7 10*3/uL Normal 1.8-7.7 [facility] Comment on above: Performed By: #### B MP, CBC #### [facility] [address] [place] [address] [place] Neutrophils/100 WBC (Bld) 53.7 % Normal . [facility] Comment on above: Performed By: #### B MP, CBC #### [facility] [address] [place] [address] [place] Nucleated RBC/100 WBC (Bld) [Ratio] 0.0 % Normal 0-0.5 [facility] Comment on above: Performed By: #### B MP, CBC #### [facility] [address] [place] [address] [place] Platelet mean volume (Bld) [Entitic vol] 8.2 fL Normal 6.3-10.7 [facility] Comment on above: Performed By: #### B MP, CBC #### [facility] [address] [place] [address] [place] Platelets (Bld) [#/Vol] 235 10*3/uL Normal 150-450 [facility] Comment on above: Performed By: #### B MP, CBC #### [facility] [address] RBC (Bld) [#/Vol] 4.17 10*6/uL Normal 3.60-5.00 [facility] Comment on above: Performed By: #### B MP, CBC #### [facility] [address] WBC (Bld) [#/Vol] 6.9 10*3/uL Normal 4.5-11.0 [facility] Comment on above: Performed By: #### B MP, CBC #### [facility] [address] US venous duplex LE BIon US venous duplex LE BI [facility] [place] [address] [place] [address] Ultrasound Report Signed Patient: Morales Lee MR#: [id number] : 1975 Acct:[id number] Age/Sex: 46 / F ADM Date: 10/29/21 Loc: Room: [address] [place] [address] Type: ADM IN Attending Dr: Richard Acevedo [...] Carlos Neal MD11/04/2021 11:36 AM Dictation Location: [place] [address] Tech: Natalia Rivas Transcribed By: CORTNEY 11/04/21 1136 Dictated By: Juan Carlos Neal MD 11/04/21 1135 Signed By: 11/04/21 1136 Normal [facility] Complete Blood Count Auto Di ffon 10-30-2021 Basophils (Bld) [#/Vol] 0.0 10*3/uL Normal 0.0-0.2 [facility] Comment on above: Result Comment: PERF ORMED BY: [place] [address] PATHOLOGIST OFFICE MACHINE TECHNICIAN HUY COX M.D. Performed By: #### C BC, CMP, PAB #### [facility] [address] Basophils/100 WBC (Bld) 0.6 % Normal . [facility] Comment on above: Performed By: #### C BC, CMP, PAB #### [facility] [address] Eosinophils (Bld) [#/Vol] 0.4 10*3/uL Normal 0.0-0.45 [facility] Comment on above: Performed By: #### C BC, CMP, PAB #### [facility] [address] [place] [address] Eosinophils/100 WBC (Bld) 4.9 % Normal . [facility] Comment on above: Performed By: #### C BC, CMP, PAB #### [facility] [address] Erythrocyte distribution width (RBC) [Ratio] 14.3 % Normal 11.9-15.3 [facility] Comment on above: Performed By: #### C BC, CMP, PAB #### [facility] [address] [place] [address] [place] Hematocrit (Bld) [Volume fraction] 36.1 % Normal 34.0-46.4 [facility] Comment on above: Performed By: #### C BC, CMP, PAB #### [facility] [address] [place] [address] [place] Hemoglobin (Bld) [Mass/Vol] 12.1 g/dL Normal 11.8-15.4 [facility] Comment on above: Performed By: #### C BC, CMP, PAB #### [facility] [address] [place] [address] [place] Lymphocytes (Bld) [#/Vol] 2.8 10*3/uL Normal 1.00-4.8 [facility] Comment on above: Performed By: #### C BC, CMP, PAB #### [facility] [address] [place] [address] [place] Lymphocytes/100 WBC (Bld) 39.0 % Normal . [facility] Comment on above: Performed By: #### C BC, CMP, PAB #### [address] MCH (RBC) [Entitic mass] 28.7 pg Normal 24.7-34.3 [facility] Comment on above: Performed By: #### C BC, CMP, PAB #### [address] MCV (RBC) [Entitic vol] 85.7 fL Normal 80-100 [facility] Comment on above: Performed By: #### C BC, CMP, PAB #### [address] Mean Corpuscular HGB Conc 33.4 g/dL Normal 32.0-35.0 [facility] Comment on above: Performed By: #### C BC, CMP, PAB #### [place] [address] [place] Monocytes (Bld) [#/Vol] 0.4 10*3/uL Normal 0.0-0.8 [facility] Comment on above: Performed By: #### C BC, CMP, PAB #### [place] [address] [place] Monocytes/100 WBC (Bld) 5.2 % Normal . [facility] Comment on above: Performed By: #### C BC, CMP, PAB #### [place] [address] [place] Neutrophils (Bld) [#/Vol] 3.6 10*3/uL Normal 1.8-7.7 [facility] Comment on above: Performed By: #### C BC, CMP, PAB #### [address] Neutrophils/100 WBC (Bld) 50.3 % Normal . [facility] Comment on above: Performed By: #### C BC, CMP, PAB #### [facility] [address] Nucleated RBC/100 WBC (Bld) [Ratio] 0.0 % Normal 0-0.5 [facility] Comment on above: Performed By: #### C BC, CMP, PAB #### [address] Platelet mean volume (Bld) [Entitic vol] 8.1 fL Normal 6.3-10.7 [facility] Comment on above: Performed By: #### C BC, CMP, PAB #### [address] Platelets (Bld) [#/Vol] 261 10*3/uL Normal 150-450 [facility] Comment on above: Performed By: #### C BC, CMP, PAB #### [address] RBC (Bld) [#/Vol] 4.22 10*6/uL Normal 3.60-5.00 [facility] Comment on above: Performed By: #### C BC, CMP, PAB #### [address] WBC (Bld) [#/Vol] 7.2 10*3/uL Normal 4.5-11.0 [facility] Comment on above: Performed By: #### C BC, CMP, PAB #### [address] Comprehensive Metabolic Pane shree 10-30-2021 Albumin [Mass/Vol] 2.8 g/dL Low 3.2-5.5 [facility] Comment on above: Performed By: #### C BC, CMP, PAB #### [place] [address] [place] Albumin/Globulin [Mass ratio] 1.0 {ratio} Normal [facility] Comment on above: Performed By: #### C BC, CMP, PAB #### [facility] [address] ALP [Catalytic activity/Vol] 116 U/L High 32-92 [facility] Comment on above: Performed By: #### C BC, CMP, PAB #### [facility] [address] ALT [Catalytic activity/Vol] 20 U/L Normal 10-60 [facility] Comment on above: Performed By: #### C BC, CMP, PAB #### [facility] [address] AST [Catalytic activity/Vol] 22 U/L Normal 10-42 [facility] Comment on above: Performed By: #### C BC, CMP, PAB #### [facility] [address] Bilirubin [Mass/Vol] 0.5 mg/dL Normal 0.3-1.2 [facility] Comment on above: Performed By: #### C BC, CMP, PAB #### [facility] [address] Calcium [Mass/Vol] 8.7 mg/dL Normal 8.2-10.2 [facility] Comment on above: Performed By: #### C BC, CMP, PAB #### [facility] [address] [place] [address] [place] Chloride [Moles/Vol] 105 mmol/L Normal 95-114 [facility] Comment on above: Performed By: #### C BC, CMP, PAB #### [facility] [address] [place] [address] [place] CO2 [Moles/Vol] 26.8 mmol/L Normal 22.0-30.0 [facility] Comment on above: Performed By: #### C BC, CMP, PAB #### [facility] [address] Creatinine [Mass/Vol] 0.51 mg/dL Normal 0.44-1.03 [facility] Comment on above: Performed By: #### C DARIUS PATEL, PAB #### [facility] [address] Creatinine Clr Calc Pharmacy 123.73 [facility] Comment on above: Performed By: #### C DARIUS PATEL, PAB #### [facility] [address] Estimated GFR ( July > 60 [facility] Comment on above: Result Comment: GFR estimated reference range: According to KDOQI guidelines, <60 ml/min/1.73m2 is sufficient to diagnose a patient with chronic kidney disease. Performed By: #### C DARIUS PATEL, PAB #### [facility] [address] Estimated GFR (Non- Am > 60 [facility] Comment on above: Performed By: #### C DARIUS PATEL, PAB #### [address] Globulin (S) [Mass/Vol] 2.8 g/dL [facility] Comment on above: Performed By: #### C DARIUS PATEL, PAB #### [address] Glucose [Mass/Vol] 115 mg/dL High 70-100 [facility] Comment on above: Result Comment: Ruso Glucose Reference Range is dependent on time and content of last meal. Glucose of more than 200 mg/dL in a nonstressed, ambulatory subject supports the diagnosis of Diabetes Mellitus. ADA recommended reference range Performed By: #### C BC CMP, PAB #### [facility] [address] Potassium [Moles/Vol] 3.7 mmol/L Normal 3.5-5.1 [facility] Comment on above: Performed By: #### C BC, CMP, PAB #### [facility] [address] Protein [Mass/Vol] 5.6 g/dL Low 6.1-7.9 [facility] Comment on above: Performed By: #### C BC, CMP, PAB #### [facility] [address] [place] [address] [place] Sodium [Moles/Vol] 140 mmol/L Normal 136-146 [facility] Comment on above: Performed By: #### C BC, CMP, PAB #### [facility] [address] [place] [address] [place] Urea nitrogen [Mass/Vol] 7 mg/dL Low 9- [facility] Comment on above: Performed By: #### C BC, CMP, PAB #### [facility] [address] [place] [address] [place] Dipstick and Microscopicon 0 10-30-2021 Appearance (U) Clear Normal Clear [facility] Comment on above: Order Comment: Name Collection Type:: Voided Performed By: #### A DDONUAPLUS, CUU #### [facility] [address] [place] [address] [place] Bacteria,Urine 4+ High None Seen [facility] Comment on above: Order Comment: Name Collection Type:: Voided Performed By: #### A DDONUAPLUS, CUU #### [facility] [address] [place] [address] [place] Bilirubin,Urine Negative Normal Negative [facility] Comment on above: Order Comment: Name Collection Type:: Voided Performed By: #### A DDONUAPLUS, CUU #### [facility] [address] [place] [address] [place] Color (U) Yellow Normal Yellow [facility] Comment on above: Order Comment: Name Collection Type:: Voided Performed By: #### A DDONUAPLUS, CUU #### [facility] [address] [place] [address] [place] Glucose Ql (U) Normal Normal Normal [facility] Comment on above: Order Comment: Name Collection Type:: Voided Performed By: #### A DDONUAPLUS, CUU #### [facility] [address] [place] [address] [place] Hyaline Casts,Urine 0-8 Normal 0-8 [facility] Comment on above: Order Comment: Name Collection Type:: Voided Result Comment: PERF ORMED BY: [place] [address] PATHOLOGIST OFFICE MACHINE TECHNICIAN HUY COX M.D. Performed By: #### A DDONUAPLUS, CUU #### [address] Ketones Ql (U) Negative Normal Negative [facility] Comment on above: Order Comment: Name Collection Type:: Voided Performed By: #### A DDONUAPLUS, CUU #### [address] Leukocyte esterase Test strip Ql (U) 3+ High Negative [facility] Comment on above: Order Comment: Name Collection Type:: Voided Performed By: #### A DDONUAPLUS, CUU #### [place] [address] [place] Nitrite,Urine Positive High Negative [facility] Comment on above: Order Comment: Name Collection Type:: Voided Performed By: #### A DDONUAPLUS, CUU #### [place] [address] [place] Occult Blood,Urine Negative Normal Negative [facility] Comment on above: Order Comment: Name Collection Type:: Voided Result Comment: PERF ORMED BY: [place] [address] PATHOLOGIST OFFICE MACHINE TECHNICIAN HUY COX M.D. Performed By: #### A DDONUAPLUS, CUU #### [place] [address] [place] pH (U) 5.5 [pH] Normal 5.0-9.0 [facility] Comment on above: Order Comment: Name Collection Type:: Voided Performed By: #### A DDONUAPLUS, CUU #### [place] [address] [place] Protein,Urine Negative Normal Negative [facility] Comment on above: Order Comment: Name Collection Type:: Voided Performed By: #### A DDONUAPLUS, CUU #### [address] RBC LM.HPF (Urine sed) [#/Area] 0 /[HPF] Normal 0-4 [facility] Comment on above: Order Comment: Name Collection Type:: Voided Performed By: #### A DDONUAPLUS, CUU #### [address] Specificy [place],Urine 1.012 Normal 1.001-1.030 [facility] Comment on above: Order Comment: Name Collection Type:: Voided Performed By: #### A DDONUAPLUS, CUU #### [address] Squamous Epithelial Cell,Urine 0-1 Normal 0-2 [facility] Comment on above: Order Comment: Name Collection Type:: Voided Performed By: #### A DDONUAPLUS, CUU #### [address] Urobilinogen,Urine Normal Normal Normal [facility] Comment on above: Order Comment: Name Collection Type:: Voided Performed By: #### A DDONUAPLUS, CUU #### [address] WBC,Urine 20-49 High 0-4 [facility] Comment on above: Order Comment: Name Collection Type:: Voided Performed By: #### A DDONUAPLUS, CUU #### [address] Prealbuminon 10-30-2021 Prealbumin [Mass/Vol] 13.1 mg/dL Low 18.0-38.0 [facility] Comment on above: Result Comment: PERF ORMED BY: [place] [address] PATHOLOGIST OFFICE MACHINE TECHNICIAN HUY COX M.D. Performed By: #### C BC, CMP, PAB #### [address] Urine Cultureon 02-25-2022 Bacteria identified Cx Nom (U) ORGANISM: Escherichia coli (O:ESCCOL) [place] Count >100,000 Aerobic JOSE Charge (NUC86) SUSCEPTIBILITY [...] RESISTANT TO ALL B-LACTAM DRUGS. PERFORMED BY: [place] [address] PATHOLOGIST OFFICE MACHINE TECHNICIAN HUY COX M.D. Normal [facility] Comment on above: Performed By: #### A DDONUAPLUS, CUU #### [address] [facility] SARS-CoV-2 (COVID-19) RNA ADRIÁN+probe Ql (Unsp spec) Negative Normal Negative [facility] Comment on above: Order Comment: Healt hcare Worker?: N Result Comment: Testing for SARS-CoV-2 by RT-PCR This test was developed and its performance characteristics determined by [email or web address] ([email or web address]) and validated at the [facility]. This test has not been [...] is terminated or revoked sooner. PERFORMED BY: [place] [address] PATHOLOGIST OFFICE MACHINE TECHNICIAN HUY COX M.D. Performed By: #### C OVID 19 [facility] #### [address] Clinical Event Note-Need for Hospital Bedon [...] of the lumbar region. Provider/Team Contact Info-Pager [phone] Electronic Signatures: Sharmin Guaman (ACCREDITED FARM MANAGER-ESTATE PLANNING COUNSELOR) (Signed 02-Oct-2021 15:19) Authored: Clinical Event Note Last Updated: 02-Oct-2021 15:19 by Sharmin Guaman (ACCREDITED FARM MANAGER-ESTATE PLANNING COUNSELOR) [facility] Clinical Event Note-Need for wheel Chairon [...] home, can self propel or has a care administrative tech to provide assistance. Provider/Team Contact Info-Pager [phone] Electronic Signatures: Sharmin Guaman (ACCREDITED FARM MANAGER-ESTATE PLANNING COUNSELOR) (Signed 02-Oct-2021 15:27) Authored: Clinical Event Note Last Updated: 02-Oct-2021 15:27 by Sharmin Guaman (ACCREDITED FARM MANAGER-ESTATE PLANNING COUNSELOR) [facility] Daily Progress Note-Nuha stearns 10-02-2021 Daily Progress Note-Neurosurgery Service: Neurosurgery Subjective Data: MORALES LEE is a 46 year old Female who is Hospital Day # 18 and POD #11 for posterior L4-L5 decompression;posterior L4-L5 arthrodesis. Objective Data: Objective Information: T PRBPSpO2 [id number]/8397% Date/Time10/02 1: 1: 1: 1: 1: Range(36.2C - 37.6C [...] 2021 10:00 pm000 Oct 01, 2021 2:00 [id number] The Intake and Output Totals for the [...] HTN, C6-7 ACDFF, T1 comp fx s/p T1- lami c/b worseing kyphosis s/p 12/2020 L1 [...] the note. I personally evaluated the patient [id number] Electronic Signatures: Kenneth Philippe (Resident)) (Signed 02-Oct-2021 06:52) Authored: Service, Subjective Data, Objective Data, Assessment and Plan, Note Completion Lex Frederick) (Signed 02-Oct-2021 15:16) Authored: Note Completion Co-Signer: Service, Subjective Data, Objective Data, Assessment and Plan, Note Completion Last Updated: 02-Oct-2021 15:16 by Lex Frederick) [facility] Clinical Event Note-Discharg e discussionon 10-01-2021 Clinical [...] duration of trip. Electronic Signatures: Ambrocio Izaguirre (ACCREDITED FARM MANAGER-ESTATE PLANNING COUNSELOR) (Signed 01-Oct-2021 17:11) Authored: Clinical Event Note Last Updated: 01-Oct-2021 17:11 by Ambrocio Izaguirre (ACCREDITED FARM MANAGER-ESTATE PLANNING COUNSELOR) [facility] Clinical Event Note-Need for hospital bedon [...] when lying flat. Electronic Signatures: Ambrocio Izaguirre (ACCREDITED FARM MANAGER-ESTATE PLANNING COUNSELOR) (Signed 01-Oct-2021 14:48) Authored: Clinical Event Note Last Updated: 01-Oct-2021 14:48 by Ambrocio Izaguirre (ACCREDITED FARM MANAGER-ESTATE PLANNING COUNSELOR) [facility] Daily Progress Note-Nuha stearns 10-01-2021 Daily Progress Note-Neurosurgery Service: Neurosurgery Subjective Data: MORALES LEE is a 46 year old Female who is Hospital Day # 17 and POD #10 for posterior L4-L5 decompression;posterior L4-L5 arthrodesis. Objective Data: Objective Information: T PRBPSpO2 Value36.67583753/7194% Date/Time10/01 0: 0: 0: 0: 0:38 Range(35.6C - 36.8C ) (64 - 96 ) (16 - 19 ) (94 - 138 )/ (59 - 83 ) (92% - 94% ) Pain reported at 09/30 9:00: 2 = Mild ---- Intake and Output ----- Mn/Dy/Year TimeIntakeOutputNet Sep 29, 2021 10:00 [id number] Sep 29, 2021 2:00 [id number] Sep 29, 2021 6:00 am000 The Intake [...] Completion Last Updated: 01-Oct-2021 10:29 by Lex rFederick () [facility] Daily Progress Note-Neurosurgery This report has been cancelled. [facility] Daily Progress Note-Neurosur leonidasyon 09-30-2021 Daily Progress Note-Neurosurgery Service: Neurosurgery Subjective Data: MORALES LEE is a 46 year old Female who is Hospital Day # 15 and POD #8 for posterior L4-L5 decompression;posterior L4-L5 arthrodesis. Objective Data: Objective Information: T PRBPSpO2 [id number]/7393% Date/Time09/29 16: 16: 16: 16: 16:00 Range(36C - 36.7C ) (67 - 86 ) (17 - 20 ) (94 - 153 )/ (15 - 113 ) (93% - 98% ) Pain reported at 09/29 9:56: 5 = Moderate ---- Intake and Output ----- Mn/Dy/Year TimeIntakeOutputNet Sep 29, 2021 2:00 [id number] Sep 29, 2021 6:00 am000 Sep 28, 2021 10:00 [id number] The Intake and Output Totals for the [...] the note. I personally evaluated the patient [id number] Electronic Signatures: Lex Frederick) (Signed 30-Sep-2021 11:18) Authored: Note Completion Co-Signer: Service, Subjective Data, Objective Data, Assessment and Plan, Note Completion Jaya Mosquera ( (Resident)) (Signed 30-Sep-2021 03:18) Authored: Service, Subjective Data, Objective Data, Assessment and Plan, Note Completion Last Updated: 30-Sep-2021 11:18 by Lex Frederick) [facility] Rehab Cywh-gu-jzflfdcww - co -tx /c OT to address multidiscipon 09-30-2021 Rehab Qbck-mc-fjssbkbiu - co-tx /c OT to address multidiscip Rehab: Info: Disciplinephysical library circulation assistant Mode of Treatmentphysical therapy; co-treatment; co-tx /c OT to address multidisciplinary functional needs and maximize pt's safety. Time IN12:15 Time OUT12:55 Total Treatment [id number] Patient in ... at end of sessionbed, 3 railings up; alarm off; not on at start of visit Communicated with ... at end of sessionbedside nurse Patient Effortgood Symptoms Noted During/After Treatmentfatigue Treatment Considerations/CommentsExte nsive discussion /c amongst MINE SAFETY ENGINEER, OT, and pt regarding her current physical [...] rolling right; rolling left; scooting/bridging Roll Left [place] (Bed Mobility)moderate assist (50% patient effort); 1 person assist; nonverbal cues (demo/gesture); verbal cues Roll Right [place] (Bed Mobility)moderate assist (50% patient effort); 1 person assist; nonverbal cues (demo/gesture); verbal cues Scoot/Bridge [place] (Bed Mobility)maximum assist (25% patient effort); 2 person assist; nonverbal cues (demo/gesture); verbal cues Koscce-qu-Sxj [place] (Bed Mobility)maximum assist (25% patient effort); 2 person assist; nonverbal cues (demo/gesture); verbal cues Whw-di-Emfzeh [place] (Bed Mobility)maximum assist (25% patient effort); 2 [...] Pt repositioned back to sitting EOB. Sit-Stand [place] (Transfers)dependent (less than 25% patient effort) Sit-Stand Assistive Device (Transfers)mechanical lift/aid Stand-Sit [place] (Transfers)dependent (less than 25% patient effort) Stand-Sit [...] Score8 Short Term Goals: Bed Mobility: Date [id number]-8204 Bed Mobility: [place] Level Goalminimum assist (75% patients effort) Bed Mobility: Physical Assist Level Goal1-person assist, verbal cues Bed Mobility: Time Frame for Goal2 wks Transfer: Established [id number] Transfer: Transfer Type Aqtljvk-gd-eqwes/chair-to-b ed; abm-kf-zfngf/ygsyw-qu-lpt Transfer: [place] Level Goalmoderate assist (50% patients effort) Transfer: Physical Assist Level Goal1-person assist; verbal cues Transfer: Assistive Device Goalrolling walker Transfer: Time Frame for Goal2 wks Gait: Established Gait: [place] Level Goalmoderate assist (50% patients (more content not included)... [facility] Rehab Note-hospice massage therapist apy - co-tx with PT to maximizeon 09-30-2021 Rehab Note-occupational therapy - co-tx with PT to maximize Rehab: Info: Disciplineoccupational therapist Mode of Treatmentoccupational therapy; co-tx with PT to maximize pt's mobility and safety. Time IN12:15 Time OUT12:55 Total Treatment [id number] Patient in ... at end of sessionbed, [...] ling right; rolling left; scooting/bridging Roll Left [place] (Bed Mobility)moderate assist (50% patient effort); 1 person assist; nonverbal cues (demo/gesture); verbal cues Roll Right [place] (Bed Mobility)moderate assist (50% patient effort); 1 person assist; nonverbal cues (demo/gesture); verbal cues Scoot/Bridge [place] (Bed Mobility)maximum assist (25% patient effort); 2 [...] lower body dressing; upper body dressing; bathing [place] Level (Bathing)set up; verbal cues; moderate assist (50% patient effort); 1 person assist Comment (Bathing)anticipated due to impaired balance, strength, and pain. [place] Level (Upper Body Dressing)set up; verbal cues; moderate assist (50% patient effort) Comment (Upper Body Dressing)anticipated due to impaired balance, strength, and pain. [place] Level (Lower Body Dressing)don; socks; dependent (less than 25% patient effort) Position (Lower Body Dressing)supine [place] Level (Grooming)modified independence Comment (Grooming)Pt observed applying Orajel to gums, able to manage packaging, cap un/screwing, and application. [place] Level (Feeding)modified independence Comment (Feeding)Pt able to retrieve OJ cup from tray table at R side, bring to mouth, and drink appropriately. [place] Level (Toileting)dependent (less than 25% patient effort); [...] Score15 Short Term Goals: Bed Mobility: Date Nynqsyonngj36-Cck-2563 Bed Mobility: [place] Level Goalcontact guard Bed Mobility: Physical Assist Level Goalset-up, verbal cues Bed Mobility: Time Frame for Goal2 wks Transfer: Established [id number] Transfer: Transfer Type Vuocubp-es-asugx/chair-to-b ed; gjm-kb-prfcu/faioa-fw-pvt; toilet Transfer: [place] Level Goalminimum assist (75% patients effort) Transfer: Physical Assist Level Goalset-up; verbal cues; 1-person assist Transfer: Assistive Device GoalLRD Transfer: Time Frame for Goal2 wks Balance: Established [id number]-1964 Balance: Goal DetailsPt will perform ADL while reaching outside MADDIE and returning self to midline >8 minutes with set-up assist, SBA, and minimal verbal cues for safety. Enrique (more content not included)... [facility] Daily Progress Note-Nuha stearns 09-29-2021 Daily Progress Note-Neurosurgery Service: Neurosurgery Subjective Data: MORALES LEE is a 46 year old Female who is Hospital Day # 14 and POD #7 for posterior L4-L5 decompression;posterior L4-L5 arthrodesis. Objective Data: Objective Information: T PRBPSpO2 [id number]/6993% Date/Time09/28 4: 8: 8: 8: 8:00 Range(36C [...] 2021 6:00 am000 Sep 27, 2021 10:00 [id number] Sep 27, 2021 2:00 [id number] The Intake and Output Totals for the last 24 hours are: IntakeOutputNet [id number] Physical Exam by System: Neurological: A&Ox3 RUE [...] the note. I personally evaluated the patient [id number] Electronic Signatures: Lex Frederick () (Signed 29-Sep-2021 09:23) Authored: Note Completion Co-Signer: Service, Subjective Data, Objective Data, Assessment and Plan, Note Completion Jaya Mosquera (Resident)) (Signed 29-Sep-2021 03:01) Authored: Service, Subjective Data, Objective Data, Assessment and Plan, Note Completion Last Updated: 29-Sep-2021 09:23 by Lex Frederick) [facility] Rehab Cjhb-jy-hfareumop - co -tx /c OT to address multidiscipon 09-29-2021 Rehab Opzt-ux-dbggkzjdx - co-tx /c OT to address multidiscip Rehab: Info: Disciplinephysical library circulation assistant Mode of Treatmentphysical therapy; co-treatment; co-tx /c OT to address multidisciplinary functional needs and maximize pt's safety. Time IN14:30 Time OUT15:40 Total Treatment [id number] Patient in ... at end of sessionbed, [...] to sit; sit to supine Roll Left [place] (Bed Mobility)maximum assist (25% patient effort); 2 person assist; verbal cues; nonverbal cues (demo/gesture) Roll Right [place] (Bed Mobility)maximum assist (25% patient effort); 2 person assist; verbal cues; nonverbal cues (demo/gesture) Scoot/Bridge [place] (Bed Mobility)maximum assist (25% patient effort); 2 person assist; nonverbal cues (demo/gesture); verbal cues Lckwjn-oj-Uwn [place] (Bed Mobility)maximum assist (25% patient effort); 2 person assist; nonverbal cues (demo/gesture); verbal cues Pgq-ts-Khxzzx [place] (Bed Mobility)verbal cues; nonverbal cues (demo/gesture); maximum [...] Pt repositioned back to sitting EOB. Sit-Stand [place] (Transfers)dependent (less than 25% patient effort) Sit-Stand Assistive Device (Transfers)mechanical lift/aid Stand-Sit [place] (Transfers)dependent (less than 25% patient effort) Stand-Sit [...] Score8 Short Term Goals: Bed Mobility: Date Remkdzyybzv57-Pqs-6749 Bed Mobility: [place] Level Goalminimum assist (75% patients effort) Bed Mobility: Physical Assist Level Goal1-person assist, verbal cues Bed Mobility: Time Frame for Goal2 wks Transfer: Established [id number] Transfer: Transfer Type Dhxzrzy-xt-idrcp/chair-to-b ed; xrf-ym-nudqp/wqcdp-jg-usx Transfer: [place] Level Goalmoderate assist (50% patients effort) Transfer: Physical Assist Level Goal1-person assist; verbal cues Transfer: Assistive Device Goalrolling walker Transfer: Time Frame for Goal2 wks Gait: Established Gait: [place] Level Goalmoderate assist (50% patients effort) Gait: [...] fair Outcome (more content not included)... [facility] Rehab Note-hospice massage therapist apy - co-tx with PT to maximizeon 09-29-2021 Rehab Note-occupational therapy - co-tx with PT to maximize Rehab: Info: Disciplineoccupational therapist Mode of Treatmentoccupational therapy; co-tx with PT to maximize pt's mobility and safety. Time IN14:30 Time OUT15:40 Total Treatment [id number] Patient in ... at end of sessionbed, [...] to sit; sit to supine Roll Left [place] (Bed Mobility)maximum assist (25% patient effort); 2 person assist; verbal cues; nonverbal cues (demo/gesture); multiple rolls to adjust harness Roll Right [place] (Bed Mobility)maximum assist (25% patient effort); 2 person assist; verbal cues; nonverbal cues (demo/gesture); multiple rolls to adjust harness Scoot/Bridge [place] (Bed Mobility)maximum assist (25% patient effort); 2 person assist; nonverbal cues (demo/gesture); verbal cues; boost HOB Mdciuz-bb-Tld [place] (Bed Mobility)maximum assist (25% patient effort); 2 person assist; nonverbal cues (demo/gesture); verbal cues Mnj-zu-Vzmrqt [place] (Bed Mobility)verbal cues; nonverbal cues (demo/gesture); maximum assist (25% patient effort); 2 person assist Assistive Device (Bed Mobility)draw sheet; bed rails Transfer Assessment/Interventionssit to stand transfer; stand to sit transfer Sit-Stand [place] (Transfers)dependent (less than 25% patient effort) Sit-Stand Assistive Device (Transfers)mechanical lift/aid; Faye Plus Stand-Sit [place] (Transfers)dependent (less than 25% patient effort) Stand-Sit Assistive Device (Transfers)mechanical lift/aid; Faye Plus Safety Issues Impacting Function (Mobility)awareness of need for assistance; insight into deficits/self awareness Impairments Impacting Function (Mobility)endurance/activit y tolerance; strength; balance; coordination; postural/trunk control ADL: BADL Assessment/Interventiontoil eting; feeding; grooming; lower body dressing; upper body dressing; bathing [place] Level (Bathing)set up; verbal cues; moderate assist (50% patient effort); 1 person assist Comment (Bathing)anticipated due to impaired balance, strength, and pain. [place] Level (Upper Body Dressing)set up; verbal cues; moderate assist (50% patient effort) Comment (Upper Body Dressing)anticipated due to impaired balance, strength, and pain. [place] Level (Lower Body Dressing)don; socks; dependent (less than 25% patient effort) Position (Lower Body Dressing)supine [place] Level (Grooming)set up; contact guard Comment (Grooming)anticipated due to impaired balance, strength, and pain. [place] Level (Feeding)set up; modified independence Comment (Feeding)anticipated [place] Level (Toileting)dependent (less than 25% patient effort); purewick Impairments, BADL Safety/Performancebalance; cognition; endurance/activity tolerance; strength; trunk/postural control Cognitive Impairments, BADL Safety/Performanceawareness , need for assistance; insight into deficits/self awareness; judgment; problem solving/reasoning Motor: Sitting, Static (Balance)good balance SBA Sitting, Dynamic (Balance)fair balance CGA Lln-qx-Xfazk (Balance)poor balance Total A via Faye Plus lift Standing, Static (Balance)poor balance Max A x1 - via Faye Plus Standing, Dynamic (Balance)unable to balance Balance ActivitiesPt sat EOB ~20 minutes throughout session primarily with SB (more content not included)... [facility] Clinical Event Note-Medical Assessmenton 09-28-2021 Clinical [...] oil enema alternating with tap water enema H1Mdqin - Bisacodyl suppository QHS Daily - Monitor [...] for wound check 10/07/21 at 10:15 am, [facility] 5th floor - F/U with Dr. [...] note 45 minutes; Electronic Signatures: Concetta Shi (ACCREDITED FARM MANAGER-ESTATE PLANNING COUNSELOR) (Signed 28-Sep-2021 14:31) Authored: Clinical Event Note Last Updated: 28-Sep-2021 14:31 by Concetta Shi (ACCREDITED FARM MANAGER-ESTATE PLANNING COUNSELOR) [facility] Daily Progress Note-Gastroen terologyon 09-28-2021 Daily Progress Note-Gastroenterolog y Service: Gastroenterology Subjective Data: MORALES LEE is a 46 year old Female who is Hospital Day # 14 and POD #7 for posterior L4-L5 decompression;posterior L4-L5 arthrodesis. No events overnight. Had one bowel movement this am. Otherwise no complaints. Objective Data: Objective Information: T PRBPSpO2 [id number]/6993% Date/Time09/28 4: 8: 8: 8: 8:00 Range(36C - 36.6C ) (73 - 87 ) (15 - 22 ) (92 - 136 )/ (48 - 74 ) (92% - 99% ) As of 28-Sep-2021 08:00:00, patient is on 2 L/min of oxygen via nasal cannula. Pain reported at 09/27 22:00: 0 = None ---- Intake and Output ----- [facility], 2021 6:00 am000 Sep 27, 2021 10:00 [id number] Sep 27, 2021 2:00 [id number] The Intake and Output Totals for the last 24 hours are: IntakeOutdzilth-[facility] centerNet [id number] Physical Exam by System: Constitutional: Constitutional: A&Ox3, [...] recommend tr (more content not included)... [facility] Daily Progress Note-Nuha stearns 09-28-2021 Daily Progress Note-Neurosurgery Service: Neurosurgery Subjective Data: MORALES LEE is a 46 year old Female who is Hospital Day # 14 and POD #7 for posterior L4-L5 decompression;posterior L4-L5 arthrodesis. Objective Data: Objective Information: T PRBPSpO2 [id number]/4893% Date/Time09/28 4: 4: 4: 4: 4:00 Range(36C - 36.6C ) (72 - 87 ) (15 - 22 ) (92 - 153 )/ (48 - 113 ) (92% - 99% ) As of 27-Sep-2021 22:00:00, patient is on 2 L/min of oxygen via nasal cannula. Pain reported at 09/27 22:00: 0 = None ---- Intake and Output ----- Mn/Dy/Year TimeIntakeOutputNet Sep 26, 2021 10:00 [id number] Sep 26, 2021 2:00 [id number] The Intake and Output Totals for the last 24 hours are: IntakeOutputNet [id number] Physical Exam by System: Neurological: A&Ox3 RUE [...] the note. I personally evaluated the patient [id number] Electronic Signatures: Fidel Maciel (Resident)) (Signed 28-Sep-2021 05:47) Authored: Service, Subjective Data, Objective Data, Assessment and Plan, Note Completion Lex Frederick) (Signed 28-Sep-2021 07:32) Authored: Note Completion Co-Signer: Service, Subjective Data, Objective Data, Assessment and Plan, Note Completion Last Updated: 28-Sep-2021 07:32 by Lex Frederick) [facility] RENAL FUNCTION PANELon 09-28 Albumin [Mass/Vol] 3.1 g/dL Low 3.4 - 5.0 [facility] Comment on above: Performed By: #### R ENAL ####[id number] [place] [address] Anion gap [Moles/Vol] 17 mmol/L Normal 10 - 20 [facility] Comment on above: Performed By: #### R ENAL ####[id number] [place] [address] Calcium [Mass/Vol] 8.4 mg/dL Low 8.6 - 10.6 [facility] Comment on above: Performed By: #### R ENAL ####[id number] [place] [address] Chloride [Moles/Vol] 102 mmol/L Normal 98 - 107 [facility] Comment on above: Performed By: #### R ENAL ####[id number] [place] [address] Creatinine [Mass/Vol] 0.47 mg/dL Low 0.50 - 1.05 [facility] Comment on above: Performed By: #### R ENAL ####[id number] [place] [address] eGFR FEMALE >90 Normal >90 [facility] Comment on above: Result Comment: CALC ULATIONS OF ESTIMATED GFR ARE PERFORMED USING THE 2020 CKD-EPI STUDY REFIT EQUATION WITHOUT THE RACE VARIABLE FOR THE IDMS-TRACEABLE CREATININE METHODS. https://jasn.asnjournals.org/content//ASN.1739281 988 Performed By: #### R ENAL ####[id number] [place] [address] Glucose [Mass/Vol] 74 mg/dL Normal 74 - 99 [facility] Comment on above: Performed By: #### R ENAL ####[id number] [place] [address] HCO3 (Bld) [Moles/Vol] 27 mmol/L Normal 21 - 32 [facility] Comment on above: Performed By: #### R ENAL ####[id number] [place] [address] Phosphate [Mass/Vol] 3.4 mg/dL Normal 2.5 - 4.9 [facility] Comment on above: Result Comment: The performance characteristics of phosphorus testing in heparinized plasma have been validated by the individual laboratory site where testing is performed. Testing on heparinized plasma is not approved by the FDA; however, such approval is not necessary. Performed By: #### R ENAL ####[id number] [place] [address] Potassium [Moles/Vol] 3.7 mmol/L Normal 3.5 - 5.3 [facility] Comment on above: Performed By: #### R ENAL ####[id number] [place] [address] Sodium [Moles/Vol] 142 mmol/L Normal 136 - 145 [facility] Comment on above: Performed By: #### R ENAL ####[id number] [place] [address] Urea nitrogen [Mass/Vol] 6 mg/dL Normal 6 - 23 [facility] Comment on above: Performed By: #### R ENAL ####[id number] [place] [address] Radiologyon 09-28-2021 XR Abdomen AP Normal [facility]-Gastroen terology-[place] [facility] Work Phone: Rehab Note-attemptedon 09-28 Rehab Note-attempted Rehab: Info: Disciplinephysical library circulation assistant Mode of Treatmentattempted Time IN15:30 Reason Treatment Not Performedpatient/family declined treatment, not feeling well Treatment Considerations/CommentsPt declined therapy at this time 2* increased fatigue, nausea. Pt stated NO! NO! NO! upon therapists arrival, even /c increased encouragement. Will reattempt as schedule allows. Short Term Goals: Bed Mobility: Date Zxgcoihjjju67-Fhi-0641 Bed Mobility: [place] Level Goalminimum assist (75% patients effort) Bed Mobility: Physical Assist Level Goal1-person assist, verbal cues Bed Mobility: Time Frame for Goal2 wks Transfer: Established [id number]-Ugg-3877 Transfer: Transfer Type Bhodjkn-ja-bedlt/chair-to-b ed; dfr-ne-nsyzs/ithrh-yn-dho Transfer: [place] Level Goalmoderate assist (50% patients effort) Transfer: Physical Assist Level Goal1-person assist; verbal cues Transfer: Assistive Device Goalrolling walker Transfer: Time Frame for Goal2 wks Gait: Established Gait: [place] Level Goalmoderate assist (50% patients effort) Gait: Physical Assist Level1-person assist; verbal cues Gait: Assistive Device Goalrolling walker Gait: Distance Goal15 feet Gait: Time Frame for Goal2 wks Balance: Established Balance: Goal DetailsSitting EOB 20 minutes with 0-1 UE support, SBA for static sitting, CGA for dynamic. Standing 1 minute with FWW and CGA Electronic Signatures: Yosi Campbell (MINE SAFETY ENGINEER) (Signed 28-Sep-2021 15:32) Entered: Short Term Goals, Info Authored: Info, Short Term Goals Boone Broussard (PT) (Signed 01-Oct-2021 09:01) Co-Signer: Short Term Goals, Info Last Updated: 01-Oct-2021 09:01 by Boone Broussard (PT) [facility] Rehab Note-attempted Rehab: Info: Mode of [...] 28-Sep-2021 15:28 by Silvana Marshall (OT) [facility] Renal Function Panelon 09-28 Albumin BCP [...] RACE VARIABLE FOR THE IDMS-TRACEABLE CREATININE METHODS.https://jasn.asnjournals.org/content/early//ASN .3355483863 ABDOMEN AP VIEWon 022 ABDOMEN AP VIEW Patient Name: MORALES LEE STUDY: ABDOMEN AP VIEW; 09/28/2021 1:22 pm INDICATION: Abd. dist. . COMPARISON: 09/27/2021 abdominal radiograph. ACCESSION NUMBER(S): [id number] ORDERING CLINICIAN: CONCETTA SHI FINDINGS: Two AP [...] as stated. This study was interpreted at [facility], [place], [place]. 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 Has been on scheduled bowel regimen with [...] penicillin: Unknown Objective: Objective Information: T PRBPSpO2 [id number]/48130% Date/Time09/27 4: 4: 4: 4:00 Range (76 [...] C6-7 ACDFF, (more content not included)... [facility] Daily Progress Note-Neurosjudy stearns 09-27-2021 Daily Progress Note-Neurosurgery Service: Neurosurgery Subjective Data: MORALES LEE is a 46 year old Female who is Hospital Day # 13 and POD #6 for posterior L4-L5 decompression;posterior L4-L5 arthrodesis. Objective Data: Objective Information: T PRBPSpO2 [id number]/90493% Date/Time09/26 11:081 4: 4: 4: 4:00 Range(37C - 37C [...] 2021 6:00 am000 Sep 26, 2021 10:00 [id number] Sep 26, 2021 2:00 [id number] The Intake and Output Totals for the last 24 hours are: IntakeOutputNet [id number] Physical Exam by System: Neurological: A&Ox3 RUE [...] the note. I personally evaluated the patient [id number] Electronic Signatures: Chaparro Umana (Resident)) (Signed 27-Sep-2021 06:11) Authored: Service, Subjective Data, Objective Data, Assessment and Plan, Note Completion Natalia Palacios) (Signed 08-Oct-2021 14:31) Authored: Note Completion Co-Signer: Service, Subjective Data, Objective Data, Assessment and Plan, Note Completion Last Updated: 08-Oct-2021 14:31 by Natalia Palacios) [facility] MAGNESIUMon 09-27-2021 Magnesium [Mass/Vol] 1.80 mg/dL Normal 1.60 - 2.40 [facility] Comment on above: Performed By: #### C BC #### [facility] [address] [place] [address] Magnesium, Serumon Magnesium [Mass/Vol] 1.80 mg/dL See Below MG-G astroen terology-Rosendo moura 6 [facility] Work Phone: Comment on above: Reference Range: 1.6 0 - 2.40 RENAL FUNCTION PANELon 09-27 Albumin [Mass/Vol] 3.3 g/dL Low 3.4 - 5.0 [facility] Comment on above: Performed By: #### R ENAL #### [facility] [address] [place] [address] Anion gap [Moles/Vol] 17 mmol/L Normal 10 - 20 [facility] Comment on above: Performed By: #### R ENAL #### [facility] [address] [place] [address] Calcium [Mass/Vol] 8.5 mg/dL Low 8.6 - 10.6 [facility] Comment on above: Performed By: #### R ENAL #### [facility] [address] [place] [address] Chloride [Moles/Vol] 98 mmol/L Normal 98 - 107 [facility] Comment on above: Performed By: #### R ENAL #### [place] [address] [place] [address] Creatinine [Mass/Vol] 0.44 mg/dL Low 0.50 - 1.05 [facility] Comment on above: Performed By: #### R ENAL #### [facility] [address] [place] [address] eGFR FEMALE >90 Normal >90 [facility] Comment on above: Result Comment: CALC ULATIONS OF ESTIMATED GFR ARE PERFORMED USING THE 2020 CKD-EPI STUDY REFIT EQUATION WITHOUT THE RACE VARIABLE FOR THE IDMS-TRACEABLE CREATININE METHODS. https://jasn.asnjournals.org/content/early/ASN.8075226 988 Performed By: #### R ENAL #### [facility] [address] [place] [address] Glucose [Mass/Vol] 91 mg/dL Normal 74 - 99 [facility] Comment on above: Performed By: #### R ENAL #### [facility] [address] [place] [address] HCO3 (Bld) [Moles/Vol] 26 mmol/L Normal 21 - 32 [facility] Comment on above: Performed By: #### R ENAL #### [facility] [address] [place] [address] Phosphate [Mass/Vol] 4.0 mg/dL Normal 2.5 - 4.9 [facility] Comment on above: Result Comment: The performance characteristics of phosphorus testing in heparinized plasma have been validated by the individual laboratory site where testing is performed. Testing on heparinized plasma is not approved by the FDA; however, such approval is not necessary. Performed By: #### R ENAL #### [facility] [address] [place] [address] Potassium [Moles/Vol] 4.1 mmol/L Normal 3.5 - 5.3 [facility] Comment on above: Performed By: #### R ENAL #### [facility] [address] [place] [address] Sodium [Moles/Vol] 137 mmol/L Normal 136 - 145 [facility] Comment on above: Performed By: #### R ENAL #### [facility] [address] [place] [address] Urea nitrogen [Mass/Vol] 6 mg/dL Normal 6 - 23 [facility] Comment on above: Performed By: #### R ENAL #### [facility] [address] [place] [address] Radiologyon 09-27-2021 XR Abdomen AP Normal MG-Gastroen [...] >90 >90 MG-G astroen terology-Rosendo lwell 6 [facility] Work Phone: Comment on above: CALCULATIONS OF IVY MATED GFR ARE PERFORMED USING THE 2020 CKD-EPI STUDY REFIT EQUATION WITHOUT THE RACE VARIABLE FOR THE IDMS-TRACEABLE CREATININE METHODS.https://jasn.asnjournals.org/content//ASN .8759904832 ABDOMEN AP VIEWon 022 ABDOMEN AP VIEW Patient Name: MORALES LEE STUDY: ABDOMEN AP VIEW; 09/27/2021 2:33 am INDICATION: vomiting, constipation . COMPARISON: None. ACCESSION NUMBER(S): [id number] ORDERING CLINICIAN: FIDEL MACIEL FINDINGS: 2 AP [...] as stated. This study was interpreted at [facility], [place], [place]. Electronically signed by: DWIGHT MOY MD [facility] Daily Progress Note-Neurosur leonidasyon 09-26-2021 Daily Progress Note-Neurosurgery Service: Neurosurgery Subjective Data: MORALES LEE is a 46 year old Female who is Hospital Day # 12 and POD #5 for posterior L4-L5 decompression;posterior L4-L5 arthrodesis. Objective Data: Objective Information: T PRBPSpO2 [id number]/8299% Date/Time09/25 17: 12: 17: 17:08 Range (68 - 98 ) (21 - 23 ) (118 - 136 )/ (69 - 82 ) (92% - 99% ) Pain reported at 09/26 3:00: sleeping ---- Intake and Output ----- Mn/Dy/Year TimeIntakeOutputNet Sep 24, 2021 10:00 [id number] Sep 24, 2021 2:00 [id number] Sep 24, 2021 6:00 [id number] The Intake and Output Totals for the last 24 hours are: IntakeOutputNet [id number] Physical Exam by System: Neurological: A&Ox3 RUE [...] the note. I personally evaluated the patient [id number] Electronic Signatures: Jaya Mosquera (Resident)) (Signed 26-Sep-2021 07:08) Authored: Service, Subjective Data, Objective Data, Assessment and Plan, Note Completion Natalia Palacios) (Signed 08-Oct-2021 14:10) Authored: Note Completion Co-Signer: Service, Subjective Data, Objective Data, Assessment and Plan, Note Completion Last Updated: 08-Oct-2021 14:10 by Natalia Palacios) [facility] Clinical Event Note-POD 4 / Abdominal [...] for wound check 10/07/21 at 10:15 am, [facility] 5th floor - F/U with Dr. [...] plan of care. Electronic Signatures: Concetta Shi (ACCREDITED FARM MANAGER-ESTATE PLANNING COUNSELOR) (Signed 25-Sep-2021 13:30) Authored: Clinical Event Note Last Updated: 25-Sep-2021 13:30 by Concetta Shi (ACCREDITED FARM MANAGER-ESTATE PLANNING COUNSELOR) [facility] Daily Progress Note-Nuha stearns 09-25-2021 Daily Progress Note-Neurosurgery Service: Neurosurgery Subjective Data: MORALES LEE is a 46 year old Female who is Hospital Day # 11 and POD #4 for posterior L4-L5 decompression;posterior L4-L5 arthrodesis. Objective Data: Objective Information: T PRBPSpO2 [id number]/6799% Date/Time09/24 16: 16: 16: 16:00 Range (68 - 78 ) (18 - 19 ) (102 - 117 )/ (57 - 73 ) (95% - 99% ) As of 24-Sep-2021 21:40:00, patient is on 2 L/min of oxygen via nasal cannula. Pain reported at 09/24 21:40: 8 = Severe ---- Intake and Output ----- Mn/Dy/Year TimeIntakeOutputNet Sep 23, 2021 10:00 [id number] Sep 23, 2021 6:00 [id number] The Intake and Output Totals for the last 24 hours are: IntakeOutputNet [id number] Physical Exam by System: Neurological: A&Ox3 RUE [...] the note. I personally evaluated the patient [id number] Electronic Signatures: Lex Frederick) (Signed 25-Sep-2021 11:57) Authored: Note Completion Co-Signer: Service, Subjective Data, Objective Data, Assessment and Plan, Note Completion Alfredo Hendrickson (Resident)) (Signed 25-Sep-2021 05:56) Authored: Service, Subjective Data, Objective Data, Assessment and Plan, Note Completion Last Updated: 25-Sep-2021 11:57 by Lex Frederick) [facility] Rehab Fhdk-ja-bqoebeuhr - co -tx /c OT to address multidiscipon 09-25-2021 Rehab Xkah-ho-nnawaojex - co-tx /c OT to address multidiscip Rehab: Info: Disciplinephysical library circulation assistant Mode of Treatmentphysical therapy; co-treatment; co-tx /c OT to address multidisciplinary functional needs and maximize pt's safety. Time IN15:05 Time OUT15:59 Total Treatment [id number] Patient in ... at end of sessionbed, [...] scooting/bridging; rolling right; rolling left Roll Left [place] (Bed Mobility)maximum assist (25% patient effort); 2 person assist; verbal cues; nonverbal cues (demo/gesture) Roll Right [place] (Bed Mobility)maximum assist (25% patient effort); 2 person assist; verbal cues; nonverbal cues (demo/gesture) Scoot/Bridge [place] (Bed Mobility)maximum assist (25% patient effort); 2 person assist; nonverbal cues (demo/gesture); verbal cues Ybbwcr-gq-Rgr [place] (Bed Mobility)maximum assist (25% patient effort); 2 person assist; verbal cues; nonverbal cues (demo/gesture) Kjs-vt-Ynrtnw [place] (Bed Mobility)maximum assist (25% patient effort); 2 [...] unable to get to full standing. Sit-Stand [place] (Transfers)maximum assist (25% patient effort); verbal cues; nonverbal cues (demo/gesture); 2-3 persona assist Sit-Stand Assistive Device (Transfers)walker, front-wheeled Stand-Sit [place] (Transfers)maximum assist (25% patient effort); nonverbal cues [...] Score8 Short Term Goals: Bed Mobility: Date [id number] Bed Mobility: [place] Level Goalminimum assist (75% patients effort) Bed Mobility: Physical Assist Level Goal1-person assist, verbal cues Bed Mobility: Time Frame for Goal2 wks Transfer: Established Transfer: Transfer Type Jhpsrar-or-rsiii/chair-to-b ed; mnt-qw-lmdjb/mawwu-nd-cpp Transfer: [place] Level Goalmoderate assist (50% patients effort) Transfer: Physical Assist Level Goal1-person assist; verbal cues Transfer: Assistive Device Goalrolling walker Transfer: Time Frame for Goal2 wks Gait: Established Gait: [place] Level Goalmoderate assist (50% patients effort) Gait: [...] goals is gradual Electronic Signatures: Yosi Campbell (MINE SAFETY ENGINEER) (Signed 25-Sep-2021 16:59) Entered: Outcome Summary, Short Term Goals, Sensory, TherEx, Outcomes Tools, Info, Mobility/Tone Authored: Short Term Goals, Outcome Summary, TherEx, Outcomes Tools, Info, Mobility/Tone, Sensory Boone Broussard (PT) (Signed 01-Oct-2021 09:01) Co-Signer: Outcome Summary, Short Term Goals, Sensory, TherEx (more content not included)... [facility] Rehab Note-hospice massage therapist apy - Partial co-tx with PT to tue09-25-2021 Rehab Note-occupational therapy - Partial co-tx with PT to Rehab: Info: Disciplineoccupational therapist Mode of Treatmentoccupational therapy; Partial co-tx with PT to maximize pt's mobility and safety. Time IN15:03 Time OUT15:56 Total Treatment [id number] Patient in ... at end of sessionbed, [...] sit to supine; rolling right Roll Left [place] (Bed Mobility)Pt required assist to bend BLE at knees and to initiate turn at shoulders and hips, verbal cues for grasp on bed rail, technique, direction follow, and encouragement.; set up; verbal cues; maximum assist (25% patient effort); 2 person assist Roll Right [place] (Bed Mobility)Pt required assist to bend BLE at knees and to initiate turn at shoulders and hips, verbal cues for grasp on bed rail, technique, direction follow, and encouragement.; set up; verbal cues; maximum assist (25% patient effort); 2 person assist Scoot/Bridge [place] (Bed Mobility)boost HOB; set up; verbal cues; maximum assist (25% patient effort); 2 person assist Ojcdjl-qe-Ifi [place] (Bed Mobility)HOB elevated; set up; verbal cues; maximum assist (25% patient effort); 2 person assist Vsg-lt-Cetxuq [place] (Bed Mobility)HOB elevated; set up; verbal cues; maximum assist (25% patient effort); 2 person assist Assistive Device (Bed Mobility)bed rails; draw sheet Transfer Assessment/Interventionssit to stand transfer Sit-Stand [place] (Transfers)set up; verbal cues; maximum assist (25% patient effort); x 2-3 assist Safety Issues Impacting Function (Mobility)ability to follow commands; awareness of need for assistance; insight into deficits/self awareness; judgment; problem solving Impairments Impacting Function (Mobility)balance; cognition; endurance/activity tolerance; pain; strength; postural/trunk control ADL: BADL Assessment/Interventiontoil eting; feeding; grooming; lower body dressing; upper body dressing; bathing [place] Level (Bathing)set up; verbal cues; moderate assist (50% patient effort); 1 person assist Comment (Bathing)anticipated due to impaired balance, strength, and pain. [place] Level (Upper Body Dressing)set up; verbal cues; moderate assist (50% patient effort) Comment (Upper Body Dressing)anticipated due to impaired balance, strength, and pain. [place] Level (Lower Body Dressing)don; socks; dependent (less than 25% patient effort) Position (Lower Body Dressing)supine [place] Level (Grooming)set up; contact guard Comment (Grooming)anticipated due to impaired balance, strength, and pain. [place] Level (Feeding)set up; modified independence Comment (Feeding)anticipated [place] Level (Toileting)dependent (less than 25% patient effort); purewick Impairments, BADL Safety/Performancebalance; cognition; endurance/activity tolerance; strength; trunk/postural control Cognitive Impairments, BADL Safety/Performanceawareness , need for assistance; insight into deficits/self awareness; judgment; problem solving/reasoning Motor: Sitting, Static (Balance)good balance SBA Sitting, Dynamic (Balance)fair balance CGA Twd-fn-Lwahu (Balance)poor balance Max A x 2-3 - attempted Standing, Static (Balance)unable to balance Standing, Dynamic (Balance)unable to balance Balance ActivitiesPt sat EOB ~30 minutes with SBA/CGA for safety. Pt demonstrated good sitting balance and trunk control. Pt attempted STS transfers 3x with (more content not included)... [facility] Daily Progress Note-Neurosjudy leonidasgaurang 09-24-2021 Daily Progress Note-Neurosurgery Service: Neurosurgery Subjective Data: MORALES LEE is a 46 year old Female who is Hospital Day # 10 and POD #3 for posterior L4-L5 decompression;posterior L4-L5 arthrodesis. Objective Data: Objective Information: T PRBPSpO2 [id number]/5499% Date/Time09/23 20:4809/23 20: 20:4809/23 20: 20:48 Range(35.5C - 36.1C ) (66 - 75 ) (16 - 19 ) (90 - 118 )/ (54 - 75 ) (98% - 99% ) As of 23-Sep-2021 22:43:00, patient is on 2 L/min of oxygen via nasal cannula. ---- Intake and Output ----- Mn/Dy/[facility] Sep 22, 2021 10:00 [id number] Sep 22, 2021 2:00 [id number] Sep 22, 2021 6:00 [id number] The Intake and Output Totals for the last 24 hours are: IntakeOutputNet [id number] Physical Exam by System: Neurological: A&Ox3 RUE [...] HTN, C6-7 ACDFF, T1 comp fx s/p T1- lami c/b worseing kyphosis s/p 12/2020 L1 [...] the note. I personally evaluated the patient [id number] Comments/ Additional Findings Doing well. Kyphotic posture and Back Pain from instability and traumatic chance fracture significantly improved as compared to preop. She developed weakness involving ankle PF/DF following denominational of alignment from buckling of hypertrophic ligamentum [...] for ambulation and PT for now and long-term if the weakness fails to improve over [...] to the (more content not included)... [facility] MAGNESIUMon 09-24-2021 Magnesium [Mass/Vol] 1.71 mg/dL Normal 1.60 - 2.40 [facility] Comment on above: Performed By: #### A FPA3 #### [facility] [address] [place] [address] Magnesium, Serumon Magnesium [Mass/Vol] 1.71 mg/dL See Below MG-G robbramu carcamo-Rosendo moura 6 [facility] Work Phone: Comment on above: Reference Range: 1.6 0 - 2.40 RENAL FUNCTION PANELon 09-24 Albumin [Mass/Vol] 2.6 g/dL Low 3.4 - 5.0 [facility] Comment on above: Performed By: #### R ENAL ####[id number] [place] [address] Anion gap [Moles/Vol] 10 mmol/L Normal 10 - 20 [facility] Comment on above: Performed By: #### R ENAL ####[id number] [place] [address] Calcium [Mass/Vol] 7.7 mg/dL Low 8.6 - 10.6 [facility] Comment on above: Performed By: #### R ENAL ####[id number] [place] [address] Chloride [Moles/Vol] 108 mmol/L High 98 - 107 [facility] Comment on above: Performed By: #### R ENAL ####[id number] [place] [address] Creatinine [Mass/Vol] 0.39 mg/dL Low 0.50 - 1.05 [facility] Comment on above: Performed By: #### R ENAL ####[id number] [place] [address] eGFR FEMALE >90 Normal >90 [facility] Comment on above: Result Comment: CALC ULATIONS OF ESTIMATED GFR ARE PERFORMED USING THE 2020 CKD-EPI STUDY REFIT EQUATION WITHOUT THE RACE VARIABLE FOR THE IDMS-TRACEABLE CREATININE METHODS. https://jasn.asnjournals.org/content/early/ASN.5636304 988 Performed By: #### R ENAL ####[id number] [place] [address] Glucose [Mass/Vol] 92 mg/dL Normal 74 - 99 [facility] Comment on above: Performed By: #### R ENAL ####[id number] [place] [address] HCO3 (Bld) [Moles/Vol] 29 mmol/L Normal 21 - 32 [facility] Comment on above: Performed By: #### R ENAL ####[id number] [place] [address] Phosphate [Mass/Vol] 3.3 mg/dL Normal 2.5 - 4.9 [facility] Comment on above: Result Comment: The performance characteristics of phosphorus testing in heparinized plasma have been validated by the individual laboratory site where testing is performed. Testing on heparinized plasma is not approved by the FDA; however, such approval is not necessary. Performed By: #### R ENAL ####[id number] [place] [address] Potassium [Moles/Vol] 3.9 mmol/L Normal 3.5 - 5.3 [facility] Comment on above: Performed By: #### R ENAL ####[id number] [place] [address] Sodium [Moles/Vol] 143 mmol/L Normal 136 - 145 [facility] Comment on above: Performed By: #### R ENAL ####[id number] [place] [address] Urea nitrogen [Mass/Vol] 5 mg/dL Low 6 - 23 [facility] Comment on above: Performed By: #### R ENAL ####[id number] [place] [address] Rehab Note-attemptedon 09-24 Rehab Note-attempted Rehab: Info: Mode of Treatmentattempted Time IN15:00 Reason Treatment Not Performedpatient/family declined treatment; Pt declined participation in OT treatment stating she was on a very important call that she needed to take. Electronic Signatures: Silvana Marshall (OT) (Signed 24-Sep-2021 15:29) Authored: Info Last Updated: 24-Sep-2021 15:29 by Silvana Marshall (OT) [facility] Rehab Note-physical therapyo n 09-24-2021 Rehab [...] 24-Sep-2021 15:07 by Boone Broussard (PT) [facility] Renal Function Panelon 09-24 Albumin BCP [...] astroen terology-Rosendo lwell 6 [facility] Work Phone: [phone] Comment on above: The performance arsalan acteristics of phosphorus testing in heparinized plasma have been validated by the individual laboratory site where testing is performed. Testing on heparinized plasma is not approved by the FDA; however, such approval is not necessary. Potassium [Moles/Vol] 3.9 mmol/L 3.5 - 5.3 MG-Gastroen terology-Rosendo lwell 6 [facility] Work Phone: Sodium [Moles/Vol] 143 mmol/L 136 - 145 MG-Gas troen terology-Rosendo lwell 6 I Work Phone: Urea nitrogen [Mass/Vol] 5 mg/dL below low threshold 6 - 23 MG-Gastroen terology-Rosendo lwell 6 [facility] Work Phone: Renal Function Panel >90 >90 MG-G astroen terology-Rosendo [address] Work Phone: Comment on above: CALCULATIONS OF IVY MATED GFR ARE PERFORMED USING THE 2020 CKD-EPI STUDY REFIT EQUATION WITHOUT THE RACE VARIABLE FOR THE IDMS-TRACEABLE CREATININE METHODS.https://jasn.asnjournals.org/content//ASN .0817505821 CBCon 09-23-2021 Erythrocyte distribution width (RBC) [Ratio] 13.1 % Normal 11.5 - 14.5 [facility] Comment on above: Performed By: #### C BC ####[id number] [place] [address] Hematocrit (Bld) [Volume fraction] 30.5 % Low 36.0 - 46.0 [facility] Comment on above: Performed By: #### C BC ####[id number] [place] [address] Hemoglobin (Bld) [Mass/Vol] 9.9 g/dL Low 12.0 - 16.0 [facility] Comment on above: Performed By: #### C BC ####[id number] [place] [address] MCHC (RBC) [Mass/Vol] 32.5 g/dL Normal 32.0 - 36.0 [facility] Comment on above: Performed By: #### C BC ####[id number] [place] [address] MCV (RBC) [Entitic vol] 92 fL Normal 80 - 100 [facility] Comment on above: Performed By: #### C BC ####[id number] [place] [address] NUCLEATED RBC 0.0 /100 WBC Normal 0.0-0.0 [facility] Comment on above: Performed By: #### C BC ####[id number] [place] [address] Platelets (Bld) [#/Vol] 244 10*3/uL Normal 150 - 450 [facility] Comment on above: Performed By: #### C BC ####[id number] [place] [address] RBC 3.33 x10E12/L Low 4.00 - 5.20 [facility] Comment on above: Performed By: #### C BC ####[id number] [place] [address] WBC (Bld) [#/Vol] 8.6 10*3/uL Normal 4.4 - 11.3 [facility] Comment on above: Performed By: #### C BC ####[id number] [place] [address] CBC AND DIFFERENTIALon 09-23 % AUTOMATED IMMATURE GRAN 0.4 % Normal 0.0 - 0.9 [facility] Comment on above: Result Comment: Jaleesa ture Granulocyte Count (IG) includes promyelocytes, myelocytes and metamyelocytes but does not include bands. Percent differential counts (%) should be interpreted in the context of the absolute cell counts (cells/L). Performed By: #### C BC #### [facility] [id number] [place] [address] Basophils (Bld) [#/Vol] 0.03 10*3/uL Normal 0.00 - 0.10 [facility] Comment on above: Performed By: #### C BC #### [facility] [address] [place] [address] Basophils/100 WBC (Bld) 0.4 % Normal 0.0 - 2.0 [facility] Comment on above: Performed By: #### C BC #### [facility] [address] [place] [address] Eosinophils (Bld) [#/Vol] 0.27 10*3/uL Normal 0.00 - 0.70 [facility] Comment on above: Performed By: #### C BC #### [facility] [address] [place] [address] Eosinophils/100 WBC (Bld) 3.6 % Normal 0.0 - 6.0 [facility] Comment on above: Performed By: #### C BC #### [facility] [address] [place] [address] Erythrocyte distribution width (RBC) [Ratio] 13.2 % Normal 11.5 - 14.5 [facility] Comment on above: Performed By: #### C BC #### [facility] [address] [place] [address] Hematocrit (Bld) [Volume fraction] 30.9 % Low 36.0 - 46.0 [facility] Comment on above: Performed By: #### C BC #### [facility] [address] [place] [address] Hemoglobin (Bld) [Mass/Vol] 10.4 g/dL Low 12.0 - 16.0 [facility] Comment on above: Performed By: #### C BC #### [facility] [address] [place] [address] Lymphocytes (Bld) [#/Vol] 2.41 10*3/uL Normal 1.20 - 4.80 [facility] Comment on above: Performed By: #### C BC #### [facility] [address] [place] [address] Lymphocytes/100 WBC (Bld) 31.9 % Normal 13.0 - 44.0 [facility] Comment on above: Performed By: #### C BC #### [facility] [address] [place] [address] MCHC (RBC) [Mass/Vol] 33.7 g/dL Normal 32.0 - 36.0 [facility] Comment on above: Performed By: #### C BC #### [facility] [address] [place] [address] MCV (RBC) [Entitic vol] 91 fL Normal 80 - 100 [facility] Comment on above: Performed By: #### C BC #### [facility] [address] [place] [address] Monocytes (Bld) [#/Vol] 0.49 10*3/uL Normal 0.10 - 1.00 [facility] Comment on above: Performed By: #### C BC #### [facility] [address] [place] [address] Monocytes/100 WBC (Bld) 6.5 % Normal 2.0 - 10.0 [facility] Comment on above: Performed By: #### C BC #### [facility] [address] [place] [address] Neutrophils (Bld) [#/Vol] 4.32 10*3/uL Normal 1.20 - 7.70 [facility] Comment on above: Performed By: #### C BC #### [facility] [address] [place] [address] Neutrophils/100 WBC (Bld) 57.2 % Normal 40.0 - 80.0 [facility] Comment on above: Performed By: #### C BC #### [facility] [address] [place] [address] NUCLEATED RBC 0.0 /100 WBC Normal 0.0-0.0 [facility] Comment on above: Performed By: #### C BC #### [facility] [address] [place] [place] [address] Platelets (Bld) [#/Vol] 228 10*3/uL Normal 150 - 450 [facility] Comment on above: Performed By: #### C BC #### [facility] [address] [place] [address] RBC 3.39 x10E12/L Low 4.00 - 5.20 [facility] Comment on above: Performed By: #### C BC #### [facility] [address] [place] [address] WBC (Bld) [#/Vol] 7.6 10*3/uL Normal 4.4 - 11.3 [facility] Comment on above: Performed By: #### C BC #### [facility] [address] [place] [address] Complete Blood Count + Diffe vidya 09-23-2021 [...] {x10E9/L} See Below MG-Gastroen terology-[place] [facility] Work Phone: Comment on above: Reference Range: [...] + Differential 4.32 {x10E9/L} See Below MG-Gastroen terology-[facility] 6 [facility] Work Phone: Comment on above: Reference Range: 1.2 0 - 7.70 Complete Blood Count + Differential 3.6 % 0.0 - 6.0 [facility] 6 [facility] Work Phone: Complete Blood Count + Differential 0.4 % 0.0 - 0.9 [facility] [address] Work Phone: Comment on above: Immature Granulocyte Count (IG) includes promyelocytes, myelocytes and metamyelocytes but does not include bands. Percent differential counts (%) should be interpreted in the context of the absolute cell counts (cells/L). Complete Blood Count + Differential 0.0 {/100_WBC} 0.0-0.0 [facility] [address] Work Phone: Laboratory - Hematology and Cell countson 09-23-2021 Erythrocyte distribution width (RBC) [Ratio] 13.1 % See Below [facility] [address] Work Phone: Comment on above: Reference Range: 11. 5 - 14.5 Hematocrit (Bld) [Volume fraction] 30.5 % below low threshold See Below [facility] 6 [facility] Work Phone: Comment on above: Reference Range: 36. 0 - 46.0 Hemoglobin (Bld) [Mass/Vol] 9.9 g/dL below low threshold See Below -[facility] 6 [facility] Work Phone: Comment on above: Reference Range: 12. 0 - 16.0 MCHC (RBC) [Mass/Vol] 32.5 g/dL See Below -[facility] [address] Work Phone: Comment on above: Reference Range: 32. 0 - 36.0 MCV (RBC) [Entitic vol] 92 fL 80 - 100 -[facility]-[address] Work Phone: Platelets (Bld) [#/Vol] 244 10*3/uL 150 - 450 MG-Gastroen terology-[place] [facility] Work Phone: RBC (Bld) [#/Vol] 3.33 {x10E12/L} below low threshold See Below MG-Gastroen terology-[place] 6 [facility] Work Phone: Comment on above: Reference Range: 4.0 0 - 5.20 WBC (Bld) [#/Vol] 8.6 10*3/uL 4.4 - 11.3 MG-Gas troen terology-[place] 6 I Work Phone: MAGNESIUMon 09-23-2021 Magnesium [Mass/Vol] 1.68 mg/dL Normal 1.60 - 2.40 [facility] Comment on above: Performed By: #### C #### [facility] [address] [place] [address] Magnesium, Serumon 2 Magnesium [Mass/Vol] 1.68 mg/dL See Below MG-G [...] Practice Nurse) done by Ambrocio Izaguirre ([facility]) Discharge - Partial Reconciliation: 23-Sep-2021 13:21 by: Ambrocio Izaguirre ([facility]) Discharge - Partial Reconciliation: 24-Sep-2021 10:12 by: Ambrocio Izaguirre ([facility]) Discharge - Partial Reconciliation: 30-Sep-2021 14:12 by: Concetta Shi ([facility]) Discharge - Partial Reconciliation: 30-Sep-2021 14:14 by: Concetta Shi ([facility]) Discharge - Reconciliation: 30-Sep-2021 14:24 by: Concetta Shi ([facility]) Discharge - Reset to Incomplete: 02-Oct-2021 15:36 by: Ambrocio Izaguirre ([facility]) Discharge - Reconciliation: 02-Oct-2021 15:40 by: Ambrocio Izaguirre ([facility]) Discharge - Reset to Incomplete: 02-Oct-2021 15:57 by: Ambrocio Izaguirre ([facility]) Discharge - Reconciliation: 02-Oct-2021 15:58 by: Ambrocio Izaguirre ([facility]) Home Medications EnteredHOME MEDICATIONS AT DISCHARGE [...] not required (more content not included)... [facility] PATH REVIEW-IMMUNOHEMATOLOGY on 09-23-2021 PATH REV-IMMUNOHEMOTOL LETA [facility] Comment on above: Result Comment: By [...] By: #### A FPA3 #### [facility] [address] [place] [address] RENAL FUNCTION PANELon 09-23 Albumin [Mass/Vol] 2.7 g/dL Low 3.4 - 5.0 [facility] Comment on above: Performed By: #### V FPA3 #### [facility] [address] [place] [address] Anion gap [Moles/Vol] 10 mmol/L Normal 10 - 20 [facility] Comment on above: Performed By: #### V FPA3 #### [facility] [address] [place] [address] Calcium [Mass/Vol] 7.9 mg/dL Low 8.6 - 10.6 [facility] Comment on above: Performed By: #### V FPA3 #### [facility] [address] [place] [address] Chloride [Moles/Vol] 108 mmol/L High 98 - 107 [facility] Comment on above: Performed By: #### V FPA3 #### [facility] [address] [place] [address] Creatinine [Mass/Vol] 0.39 mg/dL Low 0.50 - 1.05 [facility] Comment on above: Performed By: #### V FPA3 #### [facility] [address] [place] [address] eGFR FEMALE >90 Normal >90 [facility] Comment on above: Result Comment: CALC ULATIONS OF ESTIMATED GFR ARE PERFORMED USING THE 2020 CKD-EPI STUDY REFIT EQUATION WITHOUT THE RACE VARIABLE FOR THE IDMS-TRACEABLE CREATININE METHODS. https://jasn.asnjournals.org/content/early/ASN.4830644 988 Performed By: #### V FPA3 #### [facility] [address] [place] [address] Glucose [Mass/Vol] 87 mg/dL Normal 74 - 99 [facility] Comment on above: Performed By: #### V FPA3 #### [facility] [address] [place] [address] HCO3 (Bld) [Moles/Vol] 29 mmol/L Normal 21 - 32 [facility] Comment on above: Performed By: #### V FPA3 #### [facility] [address] [place] [address] Phosphate [Mass/Vol] 2.7 mg/dL Normal 2.5 - 4.9 [facility] Comment on above: Result Comment: The performance characteristics of phosphorus testing in heparinized plasma have been validated by the individual laboratory site where testing is performed. Testing on heparinized plasma is not approved by the FDA; however, such approval is not necessary. Performed By: #### V FPA3 #### [facility] [address] [place] [address] Potassium [Moles/Vol] 3.6 mmol/L Normal 3.5 - 5.3 [facility] Comment on above: Performed By: #### V FPA3 #### [facility] [address] [place] [address] Sodium [Moles/Vol] 143 mmol/L Normal 136 - 145 [facility] Comment on above: Performed By: #### V FPA3 #### [facility] [address] [place] [address] Urea nitrogen [Mass/Vol] 9 mg/dL Normal 6 - 23 [facility] Comment on above: Performed By: #### V FPA3 #### [facility] [address] [place] [address] Rehab Note-individual therap yon 09-23-2021 Rehab Note-individual therapy Rehab: Info: Disciplinephysical therapist Mode of Treatmentphysical therapy; individual therapy Time IN14:50 Time OUT15:29 Total Treatment [id number] Patient in ... at end of sessionbed, [...] sit to supine; rolling right Roll Left [place] (Bed Mobility)verbal cues; maximum assist (25% patient effort); 1 person assist Roll Right [place] (Bed Mobility)maximum assist (25% patient effort); verbal cues; 1 person assist Scoot/Bridge [place] (Bed Mobility)verbal cues; maximum assist (25% patient effort); 2 person assist; boost HOB Fnaodh-nv-Dkh [place] (Bed Mobility)verbal cues; maximum assist (25% patient effort); 1 person assist Yaa-ey-Bqtiuu [place] (Bed Mobility)set up; verbal cues; maximum assist (25% patient effort); 1 person assist Assistive Device (Bed Mobility)bed rails; draw sheet Transfer Assessment/Interventionssit to stand transfer; stand to sit transfer Sit-Stand [place] (Transfers)2 person assist; moderate assist (50% patient effort) Sit-Stand Assistive Device (Transfers)B arm-in-arm assist Stand-Sit [place] (Transfers)2 person assist; moderate assist (50% patient [...] aware and pt is on scheduled pain [facility]: Plan of Care Reviewed Withpatient TherEx: [...] 23-Sep-2021 15:50 by Boone Broussard (PT) [facility] Renal Function Panelon 09-23 Albumin BCP [...] lwell [facility] Work Phone: Phosphate [Mass/Vol] 2.7 mg/dL 2.5 [...] >90 >90 MG-G astroen terology-[place] 6 [facility] Work Phone: Comment on above: CALCULATIONS OF IVY MATED GFR ARE PERFORMED USING THE 2020 CKD-EPI STUDY REFIT EQUATION WITHOUT THE RACE VARIABLE FOR THE IDMS-TRACEABLE CREATININE METHODS.https://jasn.asnjournals.org/content/early/ASN .7941114793 ANTIBODY IDENT.on 09-22-2021 ANTIBODY IDENT. Anti-E [facility] Comment on above: Performed By: #### López FPA3 #### [facility] [address] [place] [address] CBCon 09-22-2021 Erythrocyte distribution width (RBC) [Ratio] 13.2 % Normal 11.5 - 14.5 [facility] Comment on above: Performed By: #### López FPA3 #### [facility] [address] [place] [address] Hematocrit (Bld) [Volume fraction] 30.6 % Low 36.0 - 46.0 [facility] Comment on above: Performed By: #### López FPA3 #### [facility] [address] [place] [address] Hemoglobin (Bld) [Mass/Vol] 10.2 g/dL Low 12.0 - 16.0 [facility] Comment on above: Performed By: #### López FPA3 #### [facility] [address] [place] [address] MCHC (RBC) [Mass/Vol] 33.3 g/dL Normal 32.0 - 36.0 [facility] Comment on above: Performed By: #### V FPA3 #### [facility] [address] [place] [address] MCV (RBC) [Entitic vol] 91 fL Normal 80 - 100 [facility] Comment on above: Performed By: #### V FPA3 #### [facility] [address] [place] [address] NUCLEATED RBC 0.0 /100 WBC Normal 0.0-0.0 [facility] Comment on above: Performed By: #### V FPA3 #### [facility] [address] [place] [address] Platelets (Bld) [#/Vol] 215 10*3/uL Normal 150 - 450 [facility] Comment on above: Performed By: #### V FPA3 #### [facility] [address] [place] [address] RBC 3.37 x10E12/L Low 4.00 - 5.20 [facility] Comment on above: Performed By: #### V FPA3 #### [facility] [address] [place] [address] WBC (Bld) [#/Vol] 9.6 10*3/uL Normal 4.4 - 11.3 [facility] Comment on above: Performed By: #### V FPA3 #### [facility] [address] [place] [address] CBC AND DIFFERENTIALon 09-22 % AUTOMATED IMMATURE GRAN 0.4 % Normal 0.0 - 0.9 [facility] Comment on above: Result Comment: Jaleesa ture Granulocyte Count (IG) includes promyelocytes, myelocytes and metamyelocytes but does not include bands. Percent differential counts (%) should be interpreted in the context of the absolute cell counts (cells/L). Performed By: #### C BCDF ####[id number] [place] [address] Basophils (Bld) [#/Vol] 0.02 10*3/uL Normal 0.00 - 0.10 [facility] Comment on above: Performed By: #### C BCDF ####[id number] [place] [address] Basophils/100 WBC (Bld) 0.2 % Normal 0.0 - 2.0 [facility] Comment on above: Performed By: #### C BCDF ####[id number] [place] [address] Eosinophils (Bld) [#/Vol] 0.04 10*3/uL Normal 0.00 - 0.70 [facility] Comment on above: Performed By: #### C BCDF ####[id number] [place] [address] Eosinophils/100 WBC (Bld) 0.4 % Normal 0.0 - 6.0 [facility] Comment on above: Performed By: #### C BCDF ####[id number] [place] [address] Erythrocyte distribution width (RBC) [Ratio] 13.2 % Normal 11.5 - 14.5 [facility] Comment on above: Performed By: #### C BCDF ####[id number] [place] [address] Hematocrit (Bld) [Volume fraction] 30.6 % Low 36.0 - 46.0 [facility] Comment on above: Performed By: #### C BCDF ####[id number] [place] [address] Hemoglobin (Bld) [Mass/Vol] 10.3 g/dL Low 12.0 - 16.0 [facility] Comment on above: Performed By: #### C BCDF ####[id number] [place] [address] Lymphocytes (Bld) [#/Vol] 2.19 10*3/uL Normal 1.20 - 4.80 [facility] Comment on above: Performed By: #### C BCDF ####[id number] [place] [address] Lymphocytes/100 WBC (Bld) 19.9 % Normal 13.0 - 44.0 [facility] Comment on above: Performed By: #### C BCDF ####[id number] [place] [address] MCHC (RBC) [Mass/Vol] 33.7 g/dL Normal 32.0 - 36.0 [facility] Comment on above: Performed By: #### C BCDF ####[id number] [place] [address] MCV (RBC) [Entitic vol] 90 fL Normal 80 - 100 [facility] Comment on above: Performed By: #### C BCDF ####[id number] [place] [address] Monocytes (Bld) [#/Vol] 0.71 10*3/uL Normal 0.10 - 1.00 [facility] Comment on above: Performed By: #### C BCDF ####[id number] [place] [address] Monocytes/100 WBC (Bld) 6.5 % Normal 2.0 - 10.0 [facility] Comment on above: Performed By: #### C BCDF ####[id number] [place] [address] Neutrophils (Bld) [#/Vol] 7.98 10*3/uL High 1.20 - 7.70 [facility] Comment on above: Performed By: #### C BCDF ####[id number] [place] [address] Neutrophils/100 WBC (Bld) 72.6 % Normal 40.0 - 80.0 [facility] Comment on above: Performed By: #### C BCDF ####[id number] [place] [address] NUCLEATED RBC 0.0 /100 WBC Normal 0.0-0.0 [facility] Comment on above: Performed By: #### C BCDF ####[id number] [place] [address] Platelets (Bld) [#/Vol] 242 10*3/uL Normal 150 - 450 [facility] Comment on above: Performed By: #### C BCDF ####[id number] [place] [address] RBC 3.39 x10E12/L Low 4.00 - 5.20 [facility] Comment on above: Performed By: #### C BCDF ####[id number] [place] [address] WBC (Bld) [#/Vol] 11.0 10*3/uL Normal 4.4 - 11.3 [facility] Comment on above: Performed By: #### C BCDF ####[id number] [place] [address] Complete Blood Count + Diffe vidya 09-22-2021 Basophils/100 WBC (Bld) 0.2 % 0.0 - 2.0 MG-Gastroen terology-[place] 6 [facility] Work Phone: Erythrocyte distribution width (RBC) [Ratio] 13.2 % See Below MG-Gastroen terology-[place] 6 [facility] Work Phone: Comment on above: Reference Range: 11. 5 - 14.5 Hematocrit (Bld) [Volume fraction] 30.6 % below low threshold See Below MG-Gastroen terology-[place] 6 [facility] Work Phone: Comment on above: Reference Range: 36. 0 - 46.0 Hemoglobin (Bld) [Mass/Vol] 10.3 g/dL below low threshold See Below MG-Gastroen terology-[place] 6 [facility] Work Phone: Comment on above: Reference Range: 12. 0 - 16.0 Lymphocytes/100 WBC (Bld) 19.9 % See Below MG-Gastroen terology-[place] 6 [facility] Work Phone: Comment on above: Reference Range: 13. 0 - 44.0 MCHC (RBC) [Mass/Vol] 33.7 g/dL See Below MG-Gastroen terology-[place] 6 [facility] Work Phone: Comment on above: Reference Range: [...] Bacteria identified Cx Nom (U) MG-Gastroen terology-Rosendo [facility] 6 I Work Phone: Daily Progress Note - Psychi atryon 09-22-2021 Daily Progress Note - Psychiatry Subjective Data: MORALES LEE is a 46 year old Female who is Hospital Day # 8. Pt seen lying in bed this morning, with at bedside. She is currently on DIGESTER OPERATOR for pain, and reports being tired this [...] this time. Objective: Objective Information: T PRBPSpO2 [id number]/5792% Date/Time09/22 0:001/ 8:001 8:001/ 8:001/18 8:00 Range(36.3C - 36.8C ) (63 [...] Fair. Medications: Continuous Medications ----- 1. HYDROmorphone DIGESTER OPERATOR 25 mg/ NaCL 0.9% 50 mL: 2.6 mg/hr IV DIGESTER OPERATOR 2. Sodium Chloride 0.9% Infusion: 1000 mL [...] I have reviewed these laboratory results in [facility]: Complete Blood Count + Differential 22-Sep-2021 [...] from Suboxone (more content not included)... [facility] Daily Progress Note-Nuha leonidasgaurang 09-22-2021 Daily Progress Note-Neurosurgery Service: Neurosurgery Subjective Data: MORALES LEE is a 46 year old Female who is Hospital Day # 8 and POD #1 for posterior L4-L5 decompression;posterior L4-L5 arthrodesis. Objective Data: Objective Information: T PRBPSpO2 [id number]/5895% Date/Time09/22 0:001 0:001 0:00118 0:001/18 0:00 Range(36.2C - 36.8C ) (82 - 109 ) (12 - 20 ) (85 - 132 )/ (49 - 89 ) (94% - 100% ) As of 21-Sep-2021 17:00:00, patient is on 4 L/min of oxygen via nasal cannula. Pain reported at 09/21 16:33: 5 = Moderate ---- Intake and Output ----- Mn/Dy/Year TimeIntakeOutputNet Sep 20, 2021 10:00 [id number] Sep 20, 2021 6:00 [id number] The Intake and Output Totals for the last 24 hours are: IntakeOutputNet [id number] Physical Exam by System: Neurological: A&Ox3 RUE [...] Chronic pain recs- intra-op ketamine, meloxicam post-op, DIGESTER OPERATOR until good PT eval, Suboxone as OP [...] the note. I personally evaluated the patient [id number] Electronic Signatures: Fidel Maciel (Resident)) (Signed 22-Sep-2021 00:35) Authored: Service, Subjective Data, Objective Data, Assessment and Plan, Note Completion Lex Frederick) (Signed 22-Sep-2021 10:31) Authored: Note Completion Co-Signer: Service, Subjective Data, Objective Data, Assessment and Plan, Note Completion Last Updated: 22-Sep-2021 10:31 by Lex Frederick) [facility] Discharge [id number] 022 Discharge Profile2 Discharge Orders: Anticipated Discharge Date: Anticipated Discharge [id number] Problem List: Additional Dx: Spinal stenosis of [...] Please call your Neurosurgeon's office (Dr. Frederick [phone]) if you have any questions. -If you [...] or twist. Instead, bend at knees to berry picker objects. Wound Care: Inspect your incision [...] taking Acetamin (more content not included)... [facility] LACTATEon 09-22-2021 Lactate [Moles/Vol] 0.8 mmol/L Normal 0.4 - 2.0 [facility] Comment on above: Result Comment: Trina puncture immediately after or during the administration of Metamizole may lead to falsely low results. Testing should be performed immediately prior to Metamizole dosing. Performed By: #### C BC #### [facility] [address] [place] [address] Laboratory - Hematology and Cell countson 09-22-2021 [...] 9.6 10*3/uL 4.4 - 11.3 MG-Gas troen terISpeak-[place] 6 [employer] Work Phone: Lactate, Levelon 09-22-2021 Lactate [Moles/Vol] 0.8 mmol/L 0.4 - 2.0 MG-Ga stroen terology-[place]well 6 [employer] Work Phone: Comment on above: Venipuncture immedia tely after or during the administration of Metamizole may lead to falsely low results. Testing should be performed immediately prior to Metamizole dosing. No Panel Informationon 09-22 0.0 {/100_WBC} 0.0-0.0 MG-Gastroe n terology-Rosendo [employer] 6 [employer] Work Phone: OT Evaluation v2-occupationa l therapy - co-eval with PT to mon 09-22-2021 OT Evaluation v2-occupational therapy - co-eval with PT to Rehab: Info: Mode of Treatmentoccupational therapy; co-eval with PT to maximize pt's mobility and safety. Time IN10:50 Time OUT11:40 Total Treatment [id number] Patient in ... at end of sessionbed, 3 railings up; alarm on Communicated with ... at end of sessionbedside nurse Patient Effortgood Symptoms Noted During/After Treatmentfatigue; increased pain Patient Profile Reviewedyes Onset of Illness/Injury or Date of [id number] Reason for Referral-09/18/21: s/p exploration of spinal [...] EOB sitting. Pertinent History of Current Functional Dhelyqw67 y/o with hx of HTN, C6-7 ACDF, [...] TubesIV; triple lumen; telemetry; urethral catheter indwelling; DIGESTER OPERATOR pump, DAVOL drain, wound vac O2 Deliverynasal cannula; 4L Pre Treatment Patient Positionsupine Pre Treatment Blood Pressure Mtabsosw19 mmHg Pre Treatment Diastolic (mm Hg)46 mmHg Pre Treatment Heart Rate (beats/min)67 Pre Treatment Respiratory Rate (breaths/min)19 Pre Treatment SpO2 (%)96 % Pre Treatment Oxygen Deliverysupplemental O2 Pre Treatment CommentsMAP 56 During Treatment Patient Positionsitting During Treatment Blood Pressure Pwdjxkss38 mmHg During Treatment Diastolic (mm Hg)77 mmHg [...] to sit; sit to supine Roll Left [place] (Bed Mobility)set up; verbal cues; 2 person assist; Pt required assist to bend BLE at (more content not included)... [facility] PATH REVIEW-IMMUNOHEMATOLOGY on 09-22-2021 PATH REV-IMMUNOHEMOTOL ZURDO [facility] Comment on above: Result Comment: By [...] Performed By: #### C #### [facility] [address] [place] [address] PT Evaluation g6-vu-bsruyoqo t - co-treatment with OT to maxion 09-22-2021 PT Evaluation q2-qi-orfbvkfdp - co-treatment with OT to maxi Rehab: Info: Mode of Treatmentphysical therapy; co-treatment; co-treatment with OT to maximize safety, mobility and ADL participation Time IN10:50 Time OUT11:40 Total Treatment [id number] Patient in ... at end of sessionbed, 3 railings up; alarm on Communicated with ... at end of sessionbedside nurse Patient Effortgood Symptoms Noted During/After Treatmentfatigue; increased pain Patient Profile Reviewedyes Onset of Illness/Injury or Date of [id number] Reason for Referral-09/18/21: s/p exploration of spinal fusion, reduction of L4/5 dislocation, L5-pelvis instrumented fusion with L4-pelvis posterolateral arthrodesis, extension of prior T6-L4 instrumentation with multiple kwaem construct and side connectors. -09/21/21: s/p posterior [...] TubesIV; triple lumen; telemetry; urethral catheter indwelling; DIGESTER OPERATOR pump, DAVOL drain, wound vac O2 Deliverynasal cannula; 4L Pre Treatment Patient Positionsupine Pre Treatment Blood Pressure Dirwfvhz71 mmHg Pre Treatment Diastolic (mm Hg)46 mmHg Pre Treatment Heart Rate (beats/min)67 Pre Treatment SpO2 (%)96 % Pre Treatment Oxygen Deliverysupplemental O2 During Treatment Patient Positionsitting During Treatment Blood Pressure Ddtsfoax74 mmHg During Treatment Diastolic (mm Hg)77 mmHg [...] sit to supine; rolling right Roll Left [place] (Bed Mobility)verbal cues; 2 person assist; Pt required assist to bend BLE at knees and to initiate turn at shoulders and hips, verbal cues for grasp on bed rail, technique, direction follow, and encouragement.; maximum assist (25% patient effort) Roll Right [place] (Bed Mobility)2 person assist; maximum assist (25% patient effort); verbal cues Scoot/Bridge [place] (Bed Mobility)verbal cues; maximum assist (25% patient effort); 2 person assist; boost HOB Umrlnc-zy-Nhq [place] (Bed Mobility)verbal cues; maximum assist (25% patient effort); 1 person assist Ylp-ee-Bjsabu [place] (Bed Mobility)set up; verbal cues; maximum assist (25% patient effort); 1 person assist Assistive Device (Bed Mobility)bed rails; draw sheet Impairments Impacting Function (Mobility)balance; cognition; endurance/activity tolerance; pain; strength; postural/trunk control; motor control Motor: Sitting, Static (Balance)SBA Sitting, Dynamic (Balance)CGA Rsp-wq-Sgbgf (Balance)MADELIN this visit. Pt hypotensive Sensory: Pre-Treatment Pain Rating7/10 Post-Treatment Pain Rating7/10 Comment, Pre/Post Treatment PainPt reported pain throughout buttocks and back, utilized DIGESTER OPERATOR pump as needed. Pain LimitationFunctional mobility limited due pain; ADLs/IADLs limited due to pain; Participation limited by pain; RN or team was notified of limitations due to p (more content not included)... [facility] RENAL FUNCTION PANELon 09-22 Albumin [Mass/Vol] 2.7 g/dL Low 3.4 - 5.0 [facility] Comment on above: Performed By: #### C BC #### [facility] [address] [place] [address] Anion gap [Moles/Vol] 10 mmol/L Normal 10 - 20 [facility] Comment on above: Performed By: #### C BC #### [facility] [address] [place] [address] Calcium [Mass/Vol] 7.8 mg/dL Low 8.6 - 10.6 [facility] Comment on above: Performed By: #### C BC #### [facility] [address] [place] [address] Chloride [Moles/Vol] 105 mmol/L Normal 98 - 107 [facility] Comment on above: Performed By: #### C BC #### [facility] [address] [place] [address] Creatinine [Mass/Vol] 0.49 mg/dL Low 0.50 - 1.05 [facility] Comment on above: Performed By: #### C BC #### [facility] [address] [place] [address] eGFR FEMALE >90 Normal >90 [facility] Comment on above: Result Comment: CALC ULATIONS OF ESTIMATED GFR ARE PERFORMED USING THE 2020 CKD-EPI STUDY REFIT EQUATION WITHOUT THE RACE VARIABLE FOR THE IDMS-TRACEABLE CREATININE METHODS. https://jasn.asnjournals.org/content/early/ASN.5325089 988 Performed By: #### C BC #### [facility] [address] [place] [address] Glucose [Mass/Vol] 93 mg/dL Normal 74 - 99 [facility] Comment on above: Performed By: #### C BC #### [facility] [address] [place] [address] HCO3 (Bld) [Moles/Vol] 29 mmol/L Normal 21 - 32 [facility] Comment on above: Performed By: #### C BC #### [facility] [address] [place] [address] Phosphate [Mass/Vol] 2.4 mg/dL Low 2.5 - 4.9 [facility] Comment on above: Result Comment: The performance characteristics of phosphorus testing in heparinized plasma have been validated by the individual laboratory site where testing is performed. Testing on heparinized plasma is not approved by the FDA; however, such approval is not necessary. Performed By: #### C BC #### [facility] [address] [place] [address] Potassium [Moles/Vol] 4.3 mmol/L Normal 3.5 - 5.3 [facility] Comment on above: Performed By: #### C BC #### [facility] [address] [place] [address] Sodium [Moles/Vol] 140 mmol/L Normal 136 - 145 [facility] Comment on above: Performed By: #### C BC #### [facility] [address] [place] [address] Urea nitrogen [Mass/Vol] 9 mg/dL Normal 6 - 23 [facility] Comment on above: Performed By: #### C BC #### [facility] [address] [place] [address] Renal Function Panelon 09-22 Albumin BCP dye [...] RACE VARIABLE FOR THE IDMS-TRACEABLE CREATININE METHODS.https://jasn.asnjournals.org/content/early/ASN .4119924872 UA MICROSCOPICon 09-22-2021 RBC 6 /HPF Abnormal 0-5 [facility] Comment on above: Performed By: #### C BC #### [facility] [address] [place] [address] SQUAMOUS EPITH. CELLS 1 /HPF [facility] Comment on above: Performed By: #### C BC #### [facility] [address] [place] [address] WBC 8 /HPF Abnormal 0-5 [facility] Comment on above: Performed By: #### C BC #### [facility] [address] [place] [address] URINALYSIS WITH CULTURE IF I NDICATEDon 09-22-2021 Appearance (U) CLEAR Normal CLEAR [facility] Comment on above: Performed By: #### U ARFX ####[id number] [place] [address] Bilirubin Ql (U) Negative Normal NEGATIVE [facility] Comment on above: Performed By: #### U ARFX ####[id number] [place] [address] Color (U) MIRANDA Normal STRAW,YELLO W [facility] Comment on above: Performed By: #### U ARFX ####[id number] [place] [address] Glucose Ql (U) Negative Normal NEGATIVE [facility] Comment on above: Performed By: #### U ARFX ####[id number] [place] [address] Hemoglobin Ql (U) Negative Normal NEGATIVE [facility] Comment on above: Performed By: #### U ARFX ####[id number] [place] [address] Ketones Ql (U) 20 (1+) Abnormal NEGATIVE [facility] Comment on above: Performed By: #### U ARFX ####[id number] [place] [address] Leukocyte esterase Test strip Ql (U) Negative Normal NEGATIVE [facility] Comment on above: Performed By: #### U ARFX ####[id number] [place] [address] Nitrite Ql (U) Negative Normal NEGATIVE [facility] Comment on above: Performed By: #### U ARFX ####[id number] [place] [address] pH (U) 5.0 [pH] Normal 5.0 - 8.0 [facility] Comment on above: Performed By: #### U ARFX ####[id number] [place] [address] Protein Ql (U) 30 (1+) Abnormal NEGATIVE [facility] Comment on above: Performed By: #### U ARFX ####[id number] [place] [address] Specific gravity (U) [Rel density] 1.040 High 1.005 - 1.035 [facility] Comment on above: Performed By: #### U ARFX ####[id number] [place] [address] Urobilinogen (U) [Mass/Vol] 2.0 mg/dL High 0.0 - 1.9 [facility] Comment on above: Result Comment: Due [...] positive urobilinogen. Performed By: #### U ARFX ####[id number] [place] [address] Lab Specimen Source [facility] Comment on above: Performed By: #### U ARFX ####[id number] [place] [address] Performed By: #### C BC #### [facility] [address] [place] [address] Color (U) MIRANDA See Below [facility] Work Phone: Comment on above: SOURCE: Reference [...] high threshold 0.0 - 1.9 [facility] I Work Phone: [...] CULTURE,BACTERIALon URINE CULTURE,BACTERIAL PATIENT: MORALES LEE LOCATION: [place] [address] BILL#: [id number] : 71 AGE: SEX: F ORDERED BY: AMBROCIO IZAGUIRRE SOURCE: URINE COLLECTED: 09/22/21 12:59 ANTIBIOTICS AT [facility].: RECEIVED : 09/22/21 14:59 SITE: R E S U L T S URINE CULTURE,BACTERIAL FINAL 09/23/21 09:04 NO SIGNIFICANT GROWTH. [facility] Comment on above: Performed By: #### C BC #### [facility] [address] [place] [address] Urinalysis, Microscopicon Urinalysis, Microscopic 1 {/HPF} [facility] Work Phone: Urinalysis, Microscopic 6 {/HPF} Abnormal 0-5 [facility] Work Phone: Urinalysis, Microscopic 8 {/HPF} Abnormal 0-5 [facility] Work Phone: Comment on above: SOURCE: CBCon 09-21-2021 Erythrocyte distribution width (RBC) [Ratio] 13.1 % Normal 11.5 - 14.5 [facility] Comment on above: Performed By: #### R ENAL #### [facility] [address] [place] [address] Hematocrit (Bld) [Volume fraction] 34.5 % Low 36.0 - 46.0 [facility] Comment on above: Performed By: #### R ENAL #### [facility] [address] [place] [address] Hemoglobin (Bld) [Mass/Vol] 11.4 g/dL Low 12.0 - 16.0 [facility] Comment on above: Performed By: #### R ENAL #### [facility] [address] [place] [address] MCHC (RBC) [Mass/Vol] 33.0 g/dL Normal 32.0 - 36.0 [facility] Comment on above: Performed By: #### R ENAL #### [facility] [address] [place] [address] MCV (RBC) [Entitic vol] 91 fL Normal 80 - 100 [facility] Comment on above: Performed By: #### R ENAL #### [facility] [address] [place] [address] NUCLEATED RBC 0.0 /100 WBC Normal 0.0-0.0 [facility] Comment on above: Performed By: #### R ENAL #### [facility] [address] [place] [address] Platelets (Bld) [#/Vol] 269 10*3/uL Normal 150 - 450 [facility] Comment on above: Performed By: #### R ENAL #### [facility] [address] [place] [address] RBC 3.81 x10E12/L Low 4.00 - 5.20 [facility] Comment on above: Performed By: #### R ENAL #### [facility] [address] [place] [address] WBC (Bld) [#/Vol] 14.6 10*3/uL High 4.4 - 11.3 [facility] Comment on above: Performed By: #### R ENAL #### [facility] [address] [place] [address] Erythrocyte distribution width (RBC) [Ratio] 13.2 % Normal 11.5 - 14.5 [facility] Comment on above: Performed By: #### R ENAL #### [facility] [address] [place] [address] Hematocrit (Bld) [Volume fraction] 35.8 % Low 36.0 - 46.0 [facility] Comment on above: Performed By: #### R ENAL #### [facility] [address] [place] [address] Hemoglobin (Bld) [Mass/Vol] 11.9 g/dL Low 12.0 - 16.0 [facility] Comment on above: Performed By: #### R ENAL #### [facility] [address] [place] [address] MCHC (RBC) [Mass/Vol] 33.2 g/dL Normal 32.0 - 36.0 [facility] Comment on above: Performed By: #### R ENAL #### [facility] [address] [place] [address] MCV (RBC) [Entitic vol] 91 fL Normal 80 - 100 [facility] Comment on above: Performed By: #### R ENAL #### [facility] [address] [place] [address] NUCLEATED RBC 0.0 /100 WBC Normal 0.0-0.0 [facility] Comment on above: Performed By: #### R ENAL #### [facility] [address] [place] [address] Platelets (Bld) [#/Vol] 215 10*3/uL Normal 150 - 450 [facility] Comment on above: Performed By: #### R ENAL #### [facility] [address] [place] [address] RBC 3.93 x10E12/L Low 4.00 - 5.20 [facility] Comment on above: Performed By: #### R ENAL #### [facility] [address] [place] [address] WBC (Bld) [#/Vol] 14.8 10*3/uL High 4.4 - 11.3 [facility] Comment on above: Performed By: #### R ENAL #### [facility] [address] [place] [address] Daily Progress Note-Neurosur jinny 09-21-2021 Daily Progress Note-Neurosurgery Service: Neurosurgery Subjective Data: JESUS MORALES Elena is a 46 year old Female who is Hospital Day # 7 and POD #3 for 1. Exploration of spinal fusion;2. Reduction of L4/5 dislocation;2. L5-pelvis instrumented fusion with posterolateral arthrodesis;4. Extension of instrumentation with multiple kwame construct and side connectors. 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 [facility] - Blood bankon ABO group [...] lumbar spine September 18, 2021 ACCESSION NUMBER(S): [id number]; [id number] ORDERING CLINICIAN: DEVANTE STARKS TECHNIQUE: Sagittal axial [...] S1-2. Electronically signed by: DO Andrei MESSER [facility] NR MRI T-SPINE WOon 09-21-19 NR MRI T-SPINE WO Patient Name: MORALES LEE STUDY: MRI T-SPINE WO; MRI L-SPINE WO; 09/20/2021 10:40 pm; 09/20/2021 10:42 pm INDICATION: postop foot weakness, Lie Flat: Yes, Pre Med: No . COMPARISON: MRI December 24, [address] of the lumbar spine September 18, 2021 ACCESSION NUMBER(S): [id number]; [id number] ORDERING CLINICIAN: DEVANTE STARKS TECHNIQUE: Sagittal axial [...] Electronically signed by: NATALIA WALL DO [facility] No Panel Informationon 09-21 0.0 {/100_WBC} [...] FOR TRANSFUSION FOR THIS PATIENT. Preop Checkliston Preop Checklist Preop Checklist: Preop Checklist: Arrival [id number] Arrival Time11:00 Procedure Typere-exploration of spine Temperature C36.2 degrees C Temperature F97.1 degrees F Heart Rate91 beats per minute Respiratory Rate18 breath per minute Blood Pressure Squvagof509 mm/Hg Blood Pressure Maqvaxxpe10 mm/Hg COVID 19 Results in Last 7 [...] Checklist Last Updated: 21-Sep-2021 11:17 by Linh Buchanan) [facility] REQUEST-LEUKOREDUCED RED ANJU LSon 09-21-2021 REQUEST-LEUKOREDUCED RED CELLS ORDER RECD [facility] Comment on above: Performed By: #### A FPA3 #### [facility] [address] [place] [address] TYPE + SCREENon 09-21-2021 ABO TYPE O [facility] Comment on above: Performed By: #### A FPA3 #### [facility] [address] [place] [address] RH TYPE Positive [facility] Comment on above: Performed By: #### A FPA3 #### [facility] [address] [place] [address] ABO TYPE Canceled [facility] Comment on above: Order Comment: VENECIA ESPINO, 09/21/2021 05:08TEST TYPE + SCREEN WAS CANCELLED, 09/21/2021 05:06 NO PHLEB ID ON TUBE. Result Comment: CALL ED MERA ESPINO, 09/21/2021 05:08 Performed By: #### A FPA3 #### [facility] [address] [place] [address] RH TYPE Canceled [facility] Comment on above: Order Comment: CUADRA D MERA ESPINO, 09/21/2021 05:08TEST TYPE + SCREEN WAS CANCELLED, 09/21/2021 05:06 NO PHLEB ID ON TUBE. Result Comment: CALL ED MERA ESPINO, 09/21/2021 05:08 Performed By: #### A FPA3 #### [facility] [address] [place] [address] CBCon 09-20-2021 Erythrocyte distribution width (RBC) [Ratio] 13.2 % Normal 11.5 - 14.5 [facility] Comment on above: Performed By: #### C BC #### [place] [address] [place] [address] Hematocrit (Bld) [Volume fraction] 30.8 % Low 36.0 - 46.0 [facility] Comment on above: Performed By: #### C BC #### [place] [address] [place] [address] Hemoglobin (Bld) [Mass/Vol] 9.8 g/dL Low 12.0 - 16.0 [facility] Comment on above: Performed By: #### C BC #### [facility] [address] [place] [address] MCHC (RBC) [Mass/Vol] 31.8 g/dL Low 32.0 - 36.0 [facility] Comment on above: Performed By: #### C BC #### [facility] [address] [place] [address] MCV (RBC) [Entitic vol] 93 fL Normal 80 - 100 [facility] Comment on above: Performed By: #### C BC #### [facility] [address] [place] [address] NUCLEATED RBC 0.0 /100 WBC Normal 0.0-0.0 [facility] Comment on above: Performed By: #### C BC #### [facility] [address] [place] [address] Platelets (Bld) [#/Vol] 224 10*3/uL Normal 150 - 450 [facility] Comment on above: Performed By: #### C BC #### [facility] [address] [place] [address] RBC 3.32 x10E12/L Low 4.00 - 5.20 [facility] Comment on above: Performed By: #### C BC #### [facility] [address] [place] [address] WBC (Bld) [#/Vol] 12.1 10*3/uL High 4.4 - 11.3 [facility] Comment on above: Performed By: #### C BC #### [facility] [address] [place] [address] Daily Progress Note-Neurosjudy stearns 09-20-2021 Daily Progress Note-Neurosurgery Service: Neurosurgery Subjective Data: MORALES LEE is a 46 year old Female who is Hospital Day # 6 and POD #2 for 1. Exploration of spinal fusion;2. Reduction of L4/5 dislocation;2. L5-pelvis instrumented fusion with posterolateral arthrodesis;4. Extension of instrumentation with multiple kwame construct and side connectors. Objective Data: Objective Information: T PRBPSpO2 [id number]/5095% Date/Time09/19 16: 1:341 16:001 1:341/16 1:34 Range(36.7C - 36.7C ) (84 - 110 ) (18 - 18 ) (82 - 118 )/ (50 - 97 ) (94% - 97% ) As of 19-Sep-2021 08:00:00, patient is on 2 L/min of oxygen via nasal cannula. 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, Suboxone as OP [...] Updated: 21-Sep-2021 11:28 by Perez Carlisle) [facility] - Hematology and Cell countson [...] 20-Sep-2021 12:25 by Carole Carlos (OT) [facility] PT Evaluation v2-attemptedon 09-20-2021 PT Evaluation v2-attempted Rehab: Info: Mode of Treatmentattempted Time IN12:00 Evaluation Not PerformedPer RN pt not appropriate for therapy, pt continues to have low BP and plan to receive blood, will hold and reattempt as appropriate Electronic Signatures: Kaykay Yoo (PT) (Signed 20-Sep-2021 12:42) Authored: Info Last Updated: 20-Sep-2021 12:42 by Kaykay Yoo (PT) [facility] REQUEST-LEUKOREDUCED RED ANJU LSon 09-20-2021 REQUEST-LEUKOREDUCED RED CELLS ORDER RECD [facility] Comment on above: Performed By: #### R ENAL #### [facility] [address] [place] [address] CBCon 09-19-2021 Erythrocyte distribution width (RBC) [Ratio] 12.4 % Normal 11.5 - 14.5 [facility] Comment on above: Performed By: #### R ENAL #### [facility] [address] [place] [address] Hematocrit (Bld) [Volume fraction] 38.3 % Normal 36.0 - 46.0 [facility] Comment on above: Performed By: #### R ENAL #### [facility] [address] [place] [address] Hemoglobin (Bld) [Mass/Vol] 13.4 g/dL Normal 12.0 - 16.0 [facility] Comment on above: Performed By: #### R ENAL #### [facility] [address] [place] [address] MCHC (RBC) [Mass/Vol] 35.0 g/dL Normal 32.0 - 36.0 [facility] Comment on above: Performed By: #### R ENAL #### [facility] [address] [place] [address] MCV (RBC) [Entitic vol] 85 fL Normal 80 - 100 [facility] Comment on above: Performed By: #### R ENAL #### [facility] [address] [place] [address] NUCLEATED RBC 0.0 /100 WBC Normal 0.0-0.0 [facility] Comment on above: Performed By: #### R ENAL #### [facility] [address] [place] [address] Platelets (Bld) [#/Vol] 326 10*3/uL Normal 150 - 450 [facility] Comment on above: Performed By: #### R ENAL #### [facility] [address] [place] [address] RBC 4.51 x10E12/L Normal 4.00 - 5.20 [facility] Comment on above: Performed By: #### R ENAL #### [facility] [address] [place] [address] WBC (Bld) [#/Vol] 20.5 10*3/uL High 4.4 - 11.3 [facility] Comment on above: Performed By: #### R ENAL #### [facility] [address] [place] [address] CBC AND DIFFERENTIALon 09-19 % AUTOMATED IMMATURE GRAN 0.6 % Normal 0.0 - 0.9 [facility] Comment on above: Result Comment: Jaleesa ture Granulocyte Count (IG) includes promyelocytes, myelocytes and metamyelocytes but does not include bands. Percent differential counts (%) should be interpreted in the context of the absolute cell counts (cells/L). Performed By: #### V FPA3 #### [facility] [address] [place] [address] Basophils (Bld) [#/Vol] 0.03 10*3/uL Normal 0.00 - 0.10 [facility] Comment on above: Performed By: #### V FPA3 #### [facility] [address] [place] [address] Basophils/100 WBC (Bld) 0.1 % Normal 0.0 - 2.0 [facility] Comment on above: Performed By: #### V FPA3 #### [facility] [address] [place] [address] Eosinophils (Bld) [#/Vol] 0.01 10*3/uL Normal 0.00 - 0.70 [facility] Comment on above: Performed By: #### V FPA3 #### [facility] [address] [place] [address] Eosinophils/100 WBC (Bld) 0.0 % Normal 0.0 - 6.0 [facility] Comment on above: Performed By: #### V FPA3 #### [facility] [address] [place] [address] Erythrocyte distribution width (RBC) [Ratio] 12.9 % Normal 11.5 - 14.5 [facility] Comment on above: Performed By: #### V FPA3 #### [facility] [address] [place] [address] Hematocrit (Bld) [Volume fraction] 38.3 % Normal 36.0 - 46.0 [facility] Comment on above: Performed By: #### V FPA3 #### [facility] [address] [place] [address] Hemoglobin (Bld) [Mass/Vol] 12.7 g/dL Normal 12.0 - 16.0 [facility] Comment on above: Performed By: #### V FPA3 #### [facility] [address] [place] [address] Lymphocytes (Bld) [#/Vol] 2.89 10*3/uL Normal 1.20 - 4.80 [facility] Comment on above: Performed By: #### V FPA3 #### [facility] [address] [place] [address] Lymphocytes/100 WBC (Bld) 13.5 % Normal 13.0 - 44.0 [facility] Comment on above: Performed By: #### V FPA3 #### [facility] [address] [place] [address] MCHC (RBC) [Mass/Vol] 33.2 g/dL Normal 32.0 - 36.0 [facility] Comment on above: Performed By: #### V FPA3 #### [facility] [address] [place] [address] MCV (RBC) [Entitic vol] 89 fL Normal 80 - 100 [facility] Comment on above: Performed By: #### V FPA3 #### [facility] [address] [place] [address] Monocytes (Bld) [#/Vol] 1.23 10*3/uL High 0.10 - 1.00 [facility] Comment on above: Performed By: #### V FPA3 #### [facility] [address] [place] [address] Monocytes/100 WBC (Bld) 5.7 % Normal 2.0 - 10.0 [facility] Comment on above: Performed By: #### V FPA3 #### [facility] [address] [place] [address] Neutrophils (Bld) [#/Vol] 17.16 10*3/uL High 1.20 - 7.70 [facility] Comment on above: Performed By: #### V FPA3 #### [facility] [address] [place] [address] Neutrophils/100 WBC (Bld) 80.1 % Normal 40.0 - 80.0 [facility] Comment on above: Performed By: #### V FPA3 #### [facility] [address] [place] [address] NUCLEATED RBC 0.0 /100 WBC Normal 0.0-0.0 [facility] Comment on above: Performed By: #### V FPA3 #### [facility] [address] [place] [address] Platelets (Bld) [#/Vol] 401 10*3/uL Normal 150 - 450 [facility] Comment on above: Performed By: #### V FPA3 #### [facility] [address] [place] [address] RBC 4.28 x10E12/L Normal 4.00 - 5.20 [facility] Comment on above: Performed By: #### V FPA3 #### [facility] [address] [place] [address] WBC (Bld) [#/Vol] 21.5 10*3/uL High 4.4 - 11.3 [facility] Comment on above: Performed By: #### V FPA3 #### [facility] [address] [place] [address] COAGULATION SCREENon 022 aPTT Coag (Bld) [Time] 29 s Normal 26 - 39 [facility] Comment on above: Result Comment: Note new reference range as of 08/04/2021 at 10:00am. Performed By: #### R ENAL #### [facility] [id number] [place] [address] PT Coag (PPP) [Time] 11.5 s Normal 9.8 - 13.4 [facility] Comment on above: Result Comment: Note new reference range as of 08/04/2021 at 10:00am. Performed By: #### R ENAL #### [facility] [id number] [place] [address] PT, INR 1.0 Normal 0.9 - 1.1 [facility] Comment on above: Performed By: #### R ENAL #### [facility] [address] [place] [address] Complete Blood Count + Diffe rentialon 09-19-2021 Basophils/100 WBC (Bld) 0.1 % 0.0 - 2.0 [facility] Work Phone: Erythrocyte distribution width (RBC) [Ratio] [...] 89 fL 80 - 100 [facility] 6 I Work Phone: Monocytes/100 WBC (Bld) 5.7 % 2.0 - 10.0 [facility] Work Phone: Neutrophils/100 WBC (Bld) 80.1 % See Below [facility] Work Phone: Comment on above: Reference Range: 40. 0 - 80.0 Platelets (Bld) [#/Vol] 401 10*3/uL 150 - 450 [facility] I Work Phone: RBC (Bld) [#/Vol] 4.28 {x10E12/L} See Below [facility] I Work Phone: Comment [...] Differential 0.01 {x10E9/L} See Below [facility] Work Phone: Comment on above: Reference Range: 0.0 0 - 0.70 Complete Blood Count + Differential 1.23 {x10E9/L} above high threshold See Below [facility] 6 [facility] Work Phone: Comment on above: Reference Range: 0.1 0 - 1.00 Complete Blood Count + Differential 2.89 {x10E9/L} See Below [facility] 6 [facility] Work Phone: Comment on above: Reference Range: 1.2 0 - 4.80 Complete Blood Count + Differential 17.16 {x10E9/L} above high threshold See Below [facility] 6 [facility] Work Phone: Comment on above: Reference Range: [...] connectors. Objective Data: Objective Information: T PRBPSpO2 [id number]/8596% Date/Time09/18 17: 17: 17: 17: 17:40 Range(36.4C [...] ----- Mn/Dy/Year TimeIntakeOutputNet Sep 17, 2021 10:00 [id number] The Intake and Output Totals for the last 24 hours are: IntakeOutputNet [id number] Physical Exam by System: Neurological: A&Ox3 RUE D5, B5, T5, HG5, IO5 LUE D4+, B4+, T4+, HG4+, IO5 RLE HF 4+, KE4+, PF5, DF5 (pain limited) LLE HF 4-, KE4-, PF4, DF5 Recent Lab Results: Results: Recent Arterial Blood Gas Results 09/18/2021 11:48 [id number] 24 h range: ( 219 - 224 ) pH7.44 24 h range: ( 7.44 - 7.45 ) nON302 24 h range: ( 37 - 40 ) WY2162 24 h range: ( 100 - 100 ) Base Excess2.8 24 h range: ( 1.8 - 2.8 ) Yoysubwgenl74.2 24 h range: ( 25.7 - 27.2 [...] the note. I personally evaluated the patient [id number] Comments/ Additional Findings Patients postoperative CT scan [...] Assessment an (more content not included)... [facility] - Coagulationon 0 09-19-2021 aPTT [...] [Mass/Vol] 1.59 mg/dL Low 1.60 - 2.40 [facility] Comment on above: Performed By: #### R ENAL #### [facility] [address] [place] [address] PT Evaluation v2-attemptedon 09-19-2021 PT Evaluation v2-attempted Rehab: Info: Mode of Treatmentattempted Time IN11:37 Time OUT11:50 Total Treatment Hsbgyfk58 Evaluation Not PerformedHistory obtained, BP assessed in supine 79/54mmHg, RN notified and redone with 71/51mmHg, will hold PT eval at this time and reattempt as medically appropriate Electronic Signatures: Kaykay Yoo (PT) (Signed 19-Sep-2021 12:14) Authored: Info Last Updated: 19-Sep-2021 12:14 by Kaykay Yoo (PT) [facility] RENAL FUNCTION PANELon 09-19 Albumin [Mass/Vol] 3.4 g/dL Normal 3.4 - 5.0 [facility] Comment on above: Performed By: #### A FPA3 #### [facility] [address] [place] [address] Anion gap [Moles/Vol] 18 mmol/L Normal 10 - 20 [facility] Comment on above: Performed By: #### A FPA3 #### [facility] [address] [place] [address] Calcium [Mass/Vol] 8.3 mg/dL Low 8.6 - 10.6 [facility] Comment on above: Performed By: #### A FPA3 #### [facility] [address] [place] [address] Chloride [Moles/Vol] 100 mmol/L Normal 98 - 107 [facility] Comment on above: Performed By: #### A FPA3 #### [facility] [address] [place] [address] Creatinine [Mass/Vol] 0.60 mg/dL Normal 0.50 - 1.05 [facility] Comment on above: Performed By: #### A FPA3 #### [facility] [address] [place] [address] eGFR FEMALE >90 Normal >90 [facility] Comment on above: Result Comment: CALC ULATIONS OF ESTIMATED GFR ARE PERFORMED USING THE 2020 CKD-EPI STUDY REFIT EQUATION WITHOUT THE RACE VARIABLE FOR THE IDMS-TRACEABLE CREATININE METHODS. https://jasn.asnjournals.org/content/early/ASN.5547934 988 Performed By: #### A FPA3 #### [facility] [address] [place] [address] Glucose [Mass/Vol] 82 mg/dL Normal 74 - 99 [facility] Comment on above: Performed By: #### A FPA3 #### [facility] [address] [place] [address] HCO3 (Bld) [Moles/Vol] 26 mmol/L Normal 21 - 32 [facility] Comment on above: Performed By: #### A FPA3 #### [facility] [address] [place] [address] Phosphate [Mass/Vol] 2.8 mg/dL Normal 2.5 - 4.9 [facility] Comment on above: Result Comment: The performance characteristics of phosphorus testing in heparinized plasma have been validated by the individual laboratory site where testing is performed. Testing on heparinized plasma is not approved by the FDA; however, such approval is not necessary. Performed By: #### A FPA3 #### [facility] [address] [place] [address] Potassium [Moles/Vol] 4.5 mmol/L Normal 3.5 - 5.3 [facility] Comment on above: Performed By: #### A FPA3 #### [facility] [address] [place] [address] Sodium [Moles/Vol] 139 mmol/L Normal 136 - 145 [facility] Comment on above: Performed By: #### A FPA3 #### [facility] [address] [place] [address] Urea nitrogen [Mass/Vol] 9 mg/dL Normal 6 - 23 [facility] Comment on above: Performed By: #### A FPA3 #### [facility] [address] [place] [address] Albumin [Mass/Vol] 3.6 g/dL Normal 3.4 - 5.0 [facility] Comment on above: Performed By: #### R ENAL #### [facility] [address] [place] [address] Anion gap [Moles/Vol] 13 mmol/L Normal 10 - 20 [facility] Comment on above: Performed By: #### R ENAL #### [facility] [address] [place] [address] Calcium [Mass/Vol] 8.9 mg/dL Normal 8.6 - 10.6 [facility] Comment on above: Performed By: #### R ENAL #### [facility] [address] [place] [address] Chloride [Moles/Vol] 100 mmol/L Normal 98 - 107 [facility] Comment on above: Performed By: #### R ENAL #### [facility] [address] [place] [address] Creatinine [Mass/Vol] 0.51 mg/dL Normal 0.50 - 1.05 [facility] Comment on above: Performed By: #### R ENAL #### [facility] [address] [place] [address] eGFR FEMALE >90 Normal >90 [facility] Comment on above: Result Comment: CALC ULATIONS OF ESTIMATED GFR ARE PERFORMED USING THE 2020 CKD-EPI STUDY REFIT EQUATION WITHOUT THE RACE VARIABLE FOR THE IDMS-TRACEABLE CREATININE METHODS. https://jasn.asnjournals.org/content/early/ASN.2139332 988 Performed By: #### R ENAL #### [place] [address] [place] [address] Glucose [Mass/Vol] 123 mg/dL High 74 - 99 [facility] Comment on above: Performed By: #### R ENAL #### [facility] [address] [place] [address] HCO3 (Bld) [Moles/Vol] 28 mmol/L Normal 21 - 32 [facility] Comment on above: Performed By: #### R ENAL #### [facility] [address] [place] [address] Phosphate [Mass/Vol] 2.8 mg/dL Normal 2.5 - 4.9 [facility] Comment on above: Result Comment: The performance characteristics of phosphorus testing in heparinized plasma have been validated by the individual laboratory site where testing is performed. Testing on heparinized plasma is not approved by the FDA; however, such approval is not necessary. Performed By: #### R ENAL #### [facility] [address] [place] [address] Potassium [Moles/Vol] 4.3 mmol/L Normal 3.5 - 5.3 [facility] Comment on above: Performed By: #### R ENAL #### [facility] [address] [place] [address] Sodium [Moles/Vol] 137 mmol/L Normal 136 - 145 [facility] Comment on above: Performed By: #### R ENAL #### [facility] [address] [place] [address] Urea nitrogen [Mass/Vol] 8 mg/dL Normal 6 - 23 [facility] Comment on above: Performed By: #### R ENAL #### [facility] [address] [place] [address] Renal Function Panelon 09-19 Albumin BCP dye [...] RACE VARIABLE FOR THE IDMS-TRACEABLE CREATININE METHODS.https://jasn.asnjournals.org/content//ASN .1502739573 ANTIBODY IDENT.on 09-18-2021 ANTIBODY IDENT. Anti-E [facility] Comment on above: Performed By: #### A FPA3 #### [facility] [address] [place] [address] ARTERIAL FULL PANELon 2021 Anion gap [Moles/Vol] 5 mmol/L Low 10 - 25 [facility] Comment on above: Performed By: #### A FPA3 ####[id number] [place] [address] BASE EXCESS-BLOOD 2.8 mmol/L Normal -2.0 - 3.0 [facility] Comment on above: Performed By: #### A FPA3 ####[id number] [place] [address] BICARB, CALCULATED 27.2 mmol/L High 22.0 - 26.0 [facility] Comment on above: Performed By: #### A FPA3 ####[id number] [place] [address] CALCIUM,IONIZED 1.20 mmol/L Normal 1.10 - 1.33 [facility] Comment on above: Performed By: #### A FPA3 ####[id number] [place] [address] Chloride [Moles/Vol] 106 mmol/L Normal 98 - 107 [facility] Comment on above: Performed By: #### A FPA3 ####[id number] [place] [address] Glucose [Mass/Vol] 149 mg/dL High 74 - 99 [facility] Comment on above: Performed By: #### A FPA3 ####[id number] [place] [address] Hematocrit (Bld) [Volume fraction] 38.0 % Normal 36.0 - 46.0 [facility] Comment on above: Performed By: #### A FPA3 ####[id number] [place] [address] HGB,CALCULATED 12.9 g/dL Normal 12.0 - 16.0 [facility] Comment on above: Performed By: #### A FPA3 ####[id number] [place] [address] Lactate [Moles/Vol] 0.9 mmol/L Normal 0.4 - 2.0 [facility] Comment on above: Performed By: #### A FPA3 ####[id number] [place] [address] Oxygen (Bld) [Partial pressure] 219 mm[Hg] High 85 - 95 [facility] Comment on above: Performed By: #### A FPA3 ####[id number] [place] [address] PATIENT TEMPERATURE 37.0 degrees C Normal [facility] Comment on above: Result Comment: NOTE : PATIENT RESULTS ARE NOT CORRECTED FOR TEMPERATURE. Performed By: #### A FPA3 ####[id number] [place] [address] PCO2 40 mmHg Normal 38 - 42 [facility] Comment on above: Performed By: #### A FPA3 ####[id number] [place] [address] pH (Bld) 7.44 [pH] High 7.38 - 7.42 [facility] Comment on above: Performed By: #### A FPA3 ####[id number] [place] [address] Potassium [Moles/Vol] 4.4 mmol/L Normal 3.5 - 5.3 [facility] Comment on above: Performed By: #### A FPA3 ####[id number] [place] [address] SO2 100 % Normal 94 - 100 [facility] Comment on above: Performed By: #### A FPA3 ####[id number] [place] [address] Sodium [Moles/Vol] 134 mmol/L Low 136 - 145 [facility] Comment on above: Performed By: #### A FPA3 ####[id number] [place] [address] Anion gap [Moles/Vol] 7 mmol/L Low 10 - 25 [facility] Comment on above: Performed By: #### A FPA3 #### [facility] [address] [place] [address] BASE EXCESS-BLOOD 1.8 mmol/L Normal -2.0 - 3.0 [facility] Comment on above: Performed By: #### A FPA3 #### [facility] [address] [place] [address] BICARB, CALCULATED 25.7 mmol/L Normal 22.0 - 26.0 [facility] Comment on above: Performed By: #### A FPA3 #### [facility] [address] [place] [address] CALCIUM,IONIZED 1.20 mmol/L Normal 1.10 - 1.33 [facility] Comment on above: Performed By: #### A FPA3 #### [facility] [address] [place] [address] Chloride [Moles/Vol] 105 mmol/L Normal 98 - 107 [facility] Comment on above: Performed By: #### A FPA3 #### [facility] [address] [place] [address] Glucose [Mass/Vol] 174 mg/dL High 74 - 99 [facility] Comment on above: Performed By: #### A FPA3 #### [facility] [address] [place] [address] Hematocrit (Bld) [Volume fraction] 37.0 % Normal 36.0 - 46.0 [facility] Comment on above: Performed By: #### A FPA3 #### [facility] [address] [place] HGB,CALCULATED 12.6 g/dL Normal 12.0 - 16.0 [facility] Comment on above: Performed By: #### A FPA3 #### [facility] [address] [place] Lactate [Moles/Vol] 1.1 mmol/L Normal 0.4 - 2.0 [facility] Comment on above: Performed By: #### A FPA3 #### [facility] [address] [place] [address] Oxygen (Bld) [Partial pressure] 224 mm[Hg] High 85 - 95 [facility] Comment on above: Performed By: #### A FPA3 #### [facility] [address] [place] PATIENT TEMPERATURE 37.0 degrees C Normal [facility] Comment on above: Result Comment: NOTE : PATIENT RESULTS ARE NOT CORRECTED FOR TEMPERATURE. Performed By: #### A FPA3 #### [facility] [address] [place] [address] PCO2 37 mmHg Low 38 - 42 [facility] Comment on above: Performed By: #### A FPA3 #### [facility] [address] [place] [address] pH (Bld) 7.45 [pH] High 7.38 - 7.42 [facility] Comment on above: Performed By: #### A FPA3 #### [facility] [address] [place] [address] Potassium [Moles/Vol] 3.9 mmol/L Normal 3.5 - 5.3 [facility] Comment on above: Performed By: #### A FPA3 #### [facility] [address] [place] [address] SO2 100 % Normal 94 - 100 [facility] Comment on above: Performed By: #### A FPA3 #### [facility] [address] [place] [address] Sodium [Moles/Vol] 134 mmol/L Low 136 - 145 [facility] Comment on above: Performed By: #### A FPA3 #### [facility] [address] [place] [address] CT L Spine without Contrasto n 09-18-2021 CT Lumbar spine limited WO contrast Normal [facility] I Work Phone: Daily Progress Note-Anesthes iologgaurang 09-18-2021 Daily Progress Note-Anesthesiology Service: Anesthesiology Subjective Data: MORALES LEE is a 46 year old Female who is Hospital Day # 4 and POD #0 for 1. Exploration of spinal fusion;2. Reduction of L4/5 dislocation;2. L5-pelvis instrumented fusion with posterolateral arthrodesis;4. Extension of instrumentation with multiple kwame construct and side connectors. Objective Data: Objective Information: T PRBPSpO2 [id number]/4391% Date/Time09/18 6:041 5: 5: 5:561 5:56 Range(37C - 37C ) (71 [...] Recent Arterial Blood Gas Results 09/18/2021 11:48 mF6566 24 h range: ( 219 - 224 ) pH7.44 24 h range: ( 7.44 - 7.45 ) oWG188 24 h range: ( 37 - 40 ) TS0117 24 h range: ( 100 - 100 ) Base Excess2.8 24 h range: ( 1.8 - 2.8 ) Vghsokhhmzi79.2 24 h range: ( 25.7 - 27.2 ) Assessment and Plan: Code Status: Code StatusFull Code Electronic Signatures: Bryan Mora) (Signed 18-Sep-2021 14:47) Authored: Service, Subjective Data, Objective Data, Assessment and Plan, Note Completion Last Updated: 18-Sep-2021 14:47 by Bryan Mora) [facility] Daily Progress Note-Neurosjudy leonidasyon 09-18-2021 Daily Progress Note-Neurosurgery Service: Neurosurgery Subjective Data: MORALES LEE is a 46 year old Female who is Hospital Day # 4. Objective Data: Objective Information: T PRBPSpO2 [id number]/4391% Date/Time09/18 6: 5: 5: 5: 5:56 Range(36.6C [...] ----- Mn/Dy/Year TimeIntakeOutputNet Sep 17, 2021 10:00 [id number] Sep 17, 2021 2:00 [id number] The Intake and Output Totals for the [...] the note. I personally evaluated the patient [id number] Electronic Signatures: Fidel Maciel (Resident)) (Signed 18-Sep-2021 06:55) Authored: Service, Subjective Data, Objective Data, Assessment and Plan, Note Completion Lex Fredeirck) (Signed 19-Sep-2021 10:18) Authored: Note Completion Co-Signer: Service, Subjective Data, Objective Data, Assessment and Plan, Note Completion Last Updated: 19-Sep-2021 10:18 by Lex Frederick) Normal [facility] - Chemistry and C hemistry [...] [Mass/Vol] 12.6 g/dL See Below [facility] 6 [facility] Work Phone: Comment on above: Reference Range: 12. 0 - 16.0 Hematocrit (Bld) [Volume fraction] 39.0 % See Below [facility] [...] dated 10/07/2020. MRI dated 12/11/2020 ACCESSION NUMBER(S): [id number] ORDERING CLINICIAN: ANGELO JUAREZ TECHNIQUE: Thin cut [...] as stated. This study was interpreted at [facility], [place], [place]. Electronically signed by: BOONE LAO MD [facility] No Panel Informationon 09-18 0.0 {/100_WBC} [...] Respiratory Rate15 breath per minute Blood Pressure Wflvlxpa70 mm/Hg Blood Pressure Bwedyezja87 mm/Hg COVID 19 Results in Last 7 [...] 18-Sep-2021 06:59 by Lian Zuleta (SANAZ) Normal [facility] Radiologyon 09-18-2021 XR Chest Single view [...] >90 >90 [facility] 6 [facility] Work Phone: Comment on above: CALCULATIONS OF IVY MATED GFR ARE PERFORMED USING THE 2020 CKD-EPI STUDY REFIT EQUATION WITHOUT THE RACE VARIABLE FOR THE IDMS-TRACEABLE CREATININE METHODS.https://jasn.asnjournals.org/content/early//ASN .1103745418 TH CHEST; 1 VIEWon 2 TH CHEST; 1 VIEW Patient Name: MORALES LEE STUDY: CHEST; 1 VIEW; 09/18/2021 2:38 pm INDICATION: s/p central line placement (right IJ double lumen) . COMPARISON: Radiograph dated 09/15/2021 ACCESSION NUMBER(S): [id number] ORDERING CLINICIAN: BRYAN MORA FINDINGS: Right IJ [...] Electronically signed by: LORELEI JOHNSTON MD [facility] VENOUS FULL PANELon 09-18-19 22 Anion gap [Moles/Vol] 6 mmol/L Low 10 - 25 [facility] Comment on above: Performed By: #### V FPA3 #### [facility] [address] [place] [address] BASE EXCESS-BLOOD 3.9 mmol/L High -2.0 - 3.0 [facility] Comment on above: Performed By: #### V FPA3 #### [facility] [address] [place] [address] BICARB, CALCULATED 28.5 mmol/L High 22.0 - 26.0 [facility] Comment on above: Performed By: #### V FPA3 #### [facility] [address] [place] [address] CALCIUM,IONIZED 1.17 mmol/L Normal 1.10 - 1.33 [facility] Comment on above: Performed By: #### V FPA3 #### [facility] [address] [place] [address] Chloride [Moles/Vol] 103 mmol/L Normal 98 - 107 [facility] Comment on above: Performed By: #### V FPA3 #### [facility] [address] [place] [address] Glucose [Mass/Vol] 188 mg/dL High 74 - 99 [facility] Comment on above: Performed By: #### V FPA3 #### [facility] [address] [place] [address] Hematocrit (Bld) [Volume fraction] 39.0 % Normal 36.0 - 46.0 [facility] Comment on above: Performed By: #### V FPA3 #### [facility] [address] [place] [address] HGB,CALCULATED 13.3 g/dL Normal 12.0 - 16.0 [facility] Comment on above: Performed By: #### V FPA3 #### [facility] [address] [place] [address] Lactate [Moles/Vol] 1.2 mmol/L Normal 0.4 - 2.0 [facility] Comment on above: Performed By: #### V FPA3 #### [facility] [address] [place] [address] Oxygen (Bld) [Partial pressure] 56 mm[Hg] High 35 - 45 [facility] Comment on above: Performed By: #### V FPA3 #### [facility] [address] [place] [address] PATIENT TEMPERATURE 37.0 degrees C Normal [facility] Comment on above: Result Comment: NOTE : PATIENT RESULTS ARE NOT CORRECTED FOR TEMPERATURE. Performed By: #### V FPA3 #### [facility] [address] [place] [address] PCO2 42 mmHg Normal 41 - 51 [facility] Comment on above: Performed By: #### V FPA3 #### [facility] [address] [place] [address] pH (Bld) 7.44 [pH] High 7.33 - 7.43 [facility] Comment on above: Performed By: #### V FPA3 #### [facility] [address] [place] [address] Potassium [Moles/Vol] 4.1 mmol/L Normal 3.5 - 5.3 [facility] Comment on above: Performed By: #### V FPA3 #### [facility] [address] [place] [address] SO2 91 % High 45 - 75 [facility] Comment on above: Performed By: #### V FPA3 #### [facility] [address] [place] [address] Sodium [Moles/Vol] 133 mmol/L Low 136 - 145 [facility] Comment on above: Performed By: #### V FPA3 #### [facility] [id number] [place] [address] CORONAVIRUS 2019, SCREEN ASY MPTOMATICon 09-17-2021 SARS-CoV-2 (COVID-19) RNA ADRIÁN+probe Ql (Unsp spec) Not detected Normal Not Detected [facility] Comment on above: Result Comment: . This test has received FDA Emergency Use Authorization (EUA) and has been verified by [facility] ([facility]). This test is only authorized for the duration of time that circumstances exist to justify the authorization of the emergency use of in vitro diagnostic tests for the detection of SARS-CoV-2 virus and/or diagnosis of COVID-19 infection under section 564(b)(1) of the Act, 21 U.S.C. 360bbb-3(b)(1), unless the authorization is terminated or revoked sooner. [facility] is certified under CLIA-88 as qualified to perform high complexity testing. Testing is performed in the [facility] located at [address] [place] [address]. SARS-CoV-2/Flu/RSV Multiplex Test: Fact sheet for providers: https://www.fda.gov/media/352972/download Fact sheet for patients: https://www.fda.gov/media/813879/download Performed By: #### C OVSC ####[id number] [place] [address] Lab Specimen Source Nasal, Nasopharyngeal Normal [facility] Comment on above: Performed By: #### C OVSC ####[id number] [place] [address] Coronavirus 2019 RNA by PCR, Screening Asymptomticon 09-17-2021 Coronavirus 2019 RNA by PCR, Screening Asymptomtic Not detected Normal See Below [facility] 6 [facility] Work Phone: Comment on above: SOURCE: Nasal, Nasop haryngealReference Range: Not Detected.This test has received FDA Emergency Use Authorization (EUA) and has been verified by [facility] ([facility]). This test is only authorized for the duration of time that circumstances exist to justify the authorization of the emergency use of in vitro diagnostic tests for the detection of SARS-CoV-2 virus and/or diagnosis of COVID-19 infection under section 564(b)(1) of the Act, 21 U.S.C. 360bbb-3(b)(1), unless the authorization is terminated or revoked sooner. [facility] is certified under CLIA-88 as qualified to perform high complexity testing. Testing is performed in the [facility] located at [address] [place] [address].SARS-CoV-2/Flu/RSV Multiplex Test: Fact sheet for providers: https://www.fda.gov/media/183853/downloadFact sheet for patients: https://www.fda.gov/media/590123/download Covid 19 Resultson 2 SARS-CoV-2 (COVID-19) RNA [...] You may also be contacted by the [facility] to see if any of your close [...] or Naproxen (Aleve) can also be used. Bziq-lkv-bvqsuue cough and cold medicines can be used according to the instructions on the package. Some xmow-ilr-wpmrntv medicines also contain acetaminophen. Make sure you [...] water are not available, use alcohol-based hand antique clock repairer. Avoid touching your eyes, nose, and mouth [...] 24 mariella (more content not included)... [facility] Daily Progress Note - Psychi vivianyon [...] pain but found it well-controlled on Dilaudid DIGESTER OPERATOR and 5/10 mg oxycodone. Pt is interested [...] he has been working (cardoza at a [employer]), but she looks forward to his arrival [...] her suboxone. Objective: Objective Information: T PRBPSpO2 Value36.85538404/9095% Date/Time09/17 4: 10: 10:: 10:00 Range(35.7C - 36.6C ) (81 - 89 ) (10 - 23 ) (73 - 117 )/ (43 - 90 ) (91% - 96% ) As of 17-Sep-2021 08:00:00, patient is on 3 L/min of oxygen via nasal cannula. Pain reported at 09/17 8:00: 8 = Severe ---- Intake and Output ----- Mn/Dy/Year TimeIntakeOutputNet Sep 17, 2021 6:00 [id number] Sep 16, 2021 2:00 [id number] The Intake and Output Totals for the last 24 hours are: IntakeOutputNet [id number] Mental Status Exam: General: Awake, lying in [...] a Da (more content not included)... [facility] Daily Progress Note-Neurosur jinny 09-17-2021 Daily Progress Note-Neurosurgery Service: Neurosurgery Subjective Data: MORALES LEE is a 46 year old Female who is Hospital Day # 3. Objective Data: Objective Information: T PRBPSpO2 Value35.9726543/4393% Date/Time09/16 18:5409/16 18:5409/16 18:5409/16 18:5409/16 18:54 Range(35.7C - 36.4C ) (81 - 91 ) (15 - 24 ) (87 - 118 )/ (43 - 84 ) (91% - 96% ) As of 16-Sep-2021 18:54:00, patient is on 2 L/min of oxygen via nasal cannula. Pain reported at 09/16 16:34: 10 = Severe ---- Intake and Output ----- Mn/Dy/Year TimeIntakeOutputNet Sep 16, 2021 2:00 [id number] Physical Exam by System: Neurological: A&Ox3 RUE [...] the note. I personally evaluated the patient [id number] Comments/ Additional Findings I again explained to [...] Updated: 19-Sep-2021 10:16 by Lex Frederick) [facility] HCG,URINEon 09-17-2021 Beta HCG ( test) Ql (U) Negative Normal [facility] Comment on above: Performed By: #### A FPA3 #### [facility] [address] [place] [address] Laboratory - Blood bankon ABO group Nom [...] 09-17-2021 REQUEST-LEUKOREDUCED RED CELLS ORDER RECD [facility] Comment on above: Performed By: #### O CURB MACHINE OPERATOR #### [facility] [address] [place] [id number] TYPE + SCREENon 09-17-2021 ABO TYPE O [facility] Comment on above: Performed By: #### T +S #### [facility] [address] [place] [id number] RH TYPE Positive [facility] Comment on above: Performed By: #### T +S #### [facility] [address] [place] [address] Urine Teston 09-17 HCG ( test) Ql (U) Negative Negative [facility] 6 [facility] Work Phone: BNPon 09-16-2021 Natriuretic peptide B (Bld) [Mass/Vol] 37 pg/mL Normal 0 - 99 [facility] Comment on above: Result Comment: . [...] information. Performed By: #### A FPA3 #### [facility] [address] [place] [id number] CBC AND DIFFERENTIALon 09-16 % AUTOMATED IMMATURE GRAN 0.5 % Normal 0.0 - 0.9 [facility] Comment on above: Result Comment: Jaleesa ture Granulocyte Count (IG) includes promyelocytes, myelocytes and metamyelocytes but does not include bands. Percent differential counts (%) should be interpreted in the context of the absolute cell counts (cells/L). Performed By: #### C BCDF ####[id number] [place] [address] Basophils (Bld) [#/Vol] 0.04 10*3/uL Normal 0.00 - 0.10 [facility] Comment on above: Performed By: #### C BCDF ####[id number] [place] [address] Basophils/100 WBC (Bld) 0.5 % Normal 0.0 - 2.0 [facility] Comment on above: Performed By: #### C BCDF ####[id number] [place] [address] Eosinophils (Bld) [#/Vol] 0.26 10*3/uL Normal 0.00 - 0.70 [facility] Comment on above: Performed By: #### C BCDF ####[id number] [place] [address] Eosinophils/100 WBC (Bld) 3.0 % Normal 0.0 - 6.0 [facility] Comment on above: Performed By: #### C BCDF ####[id number] [place] [address] Erythrocyte distribution width (RBC) [Ratio] 13.0 % Normal 11.5 - 14.5 [facility] Comment on above: Performed By: #### C BCDF ####[id number] [place] [address] Hematocrit (Bld) [Volume fraction] 42.7 % Normal 36.0 - 46.0 [facility] Comment on above: Performed By: #### C BCDF ####[id number] [place] [address] Hemoglobin (Bld) [Mass/Vol] 14.1 g/dL Normal 12.0 - 16.0 [facility] Comment on above: Performed By: #### C BCDF ####[id number] [place] [address] Lymphocytes (Bld) [#/Vol] 3.17 10*3/uL Normal 1.20 - 4.80 [facility] Comment on above: Performed By: #### C BCDF ####[id number] [place] [address] Lymphocytes/100 WBC (Bld) 37.2 % Normal 13.0 - 44.0 [facility] Comment on above: Performed By: #### C BCDF ####[id number] [place] [address] MCHC (RBC) [Mass/Vol] 33.0 g/dL Normal 32.0 - 36.0 [facility] Comment on above: Performed By: #### C BCDF ####[id number] [place] [address] MCV (RBC) [Entitic vol] 91 fL Normal 80 - 100 [facility] Comment on above: Performed By: #### C BCDF ####[id number] [place] [address] Monocytes (Bld) [#/Vol] 0.47 10*3/uL Normal 0.10 - 1.00 [facility] Comment on above: Performed By: #### C BCDF ####[id number] [place] [address] Monocytes/100 WBC (Bld) 5.5 % Normal 2.0 - 10.0 [facility] Comment on above: Performed By: #### C BCDF ####[id number] [place] [address] Neutrophils (Bld) [#/Vol] 4.55 10*3/uL Normal 1.20 - 7.70 [facility] Comment on above: Performed By: #### C BCDF ####[id number] [place] [address] Neutrophils/100 WBC (Bld) 53.3 % Normal 40.0 - 80.0 [facility] Comment on above: Performed By: #### C BCDF ####[id number] [place] [address] NUCLEATED RBC 0.0 /100 WBC Normal 0.0-0.0 [facility] Comment on above: Performed By: #### C BCDF ####[id number] [place] [address] Platelets (Bld) [#/Vol] 278 10*3/uL Normal 150 - 450 [facility] Comment on above: Performed By: #### C BCDF ####[id number] [place] [address] RBC 4.70 x10E12/L Normal 4.00 - 5.20 [facility] Comment on above: Performed By: #### C BCDF ####[id number] [place] [address] WBC (Bld) [#/Vol] 8.5 10*3/uL Normal 4.4 - 11.3 [facility] Comment on above: Performed By: #### C BCDF ####[id number] [place] [address] COAGULATION SCREENon 022 aPTT Coag (Bld) [Time] 31 s Normal 26 - 39 [facility] Comment on above: Result Comment: Note new reference range as of 08/04/2021 at 10:00am. Performed By: #### V FPA3 #### [facility] [address] [place] [address] PT Coag (PPP) [Time] 11.6 s Normal 9.8 - 13.4 [facility] Comment on above: Result Comment: Note new reference range as of 08/04/2021 at 10:00am. Performed By: #### V FPA3 #### [facility] [address] [place] [address] PT, INR 1.0 Normal 0.9 - 1.1 [facility] Comment on above: Performed By: #### V FPA3 #### [facility] [address] [place] [address] Clinical Event Note-ADMISSIO N CLARIFICATIONon 09-16-2021 Clinical [...] and monitoring for withdrawal. Provider/Team Contact Info-Pager [phone] Electronic Signatures: Sharmin Guaman (ACCREDITED FARM MANAGER-ESTATE PLANNING COUNSELOR) (Signed 16-Sep-2021 12:07) Authored: Clinical Event Note Last Updated: 16-Sep-2021 12:07 by Sharmin Guaman (ACCREDITED FARM MANAGER-ESTATE PLANNING COUNSELOR) [facility] Complete Blood Count + Diffe rentialon [...] the note. I personally evaluated the patient [id number] Electronic Signatures: Chidi Lamar (Fellow)) (Signed 16-Sep-2021 [...] From Consult - Psychiatry 15-Sep-2021 20:42 [facility] Consult-Perioperative Medici neon 09-16-2021 Consult-Perioperativ e [...] penicillin: Unknown Objective: Objective Information: T PRBPSpO2 Value36.02623652/8491% Date/Time09/16 11:131 12:4909/16 12: 12: 12:49 Range(36.3C - 36.4C ) (81 [...] 100 mg (more content not included)... [facility] Cult, Urineon 09-16-2021 Bacteria identified Cx Nom (U) Abnormal [facility]Gastro[facility]ology-Ros[facility] omura 6 [facility] Work Phone: Daily Progress Note-Neurosur geryon 09-16-2021 Daily Progress Note-Neurosurgery Service: Neurosurgery Subjective Data: MORALES LEE is a 46 year old Female who is Hospital Day # 3. Objective Data: Objective Information: T PRBPSpO2 Value36.6725445/6693% Date/Time09/16 1: 4: 4: 4: 4:00 Range(36.3C [...] the note. I personally evaluated the patient [id number] Comments/ Additional Findings TO OR this Tuesday if medically optimized for T12 - Pelvis fusion and Instrumentation. Pain consult for management regrading Suboxone and pain control in the perioperative period. US LE MRI of the lumbar spine., Lex Frederick MD, [facility], FAANS Director - Minimally Invasive Spine Surgery [facility] [employer] Operator of Neurological Surgery [facility] [employer] [facility] [place], [place] Electronic Signatures: Fidel Maciel (Resident)) (Signed 16-Sep-2021 04:33) Authored: Service, Subjective Data, Objective Data, Assessment and Plan, Note Completion Lex Frederick) (Signed 16-Sep-2021 10:22) Authored: Note Completion Co-Signer: Service, Subjective Data, Objective Data, Assessment and Plan, Note Completion Last Updated: 16-Sep-2021 10:22 by Lex Frederick) [facility] EMR ADDONon 09-16-2021 ADDON CONFIRMATION REQUEST REC'D [facility] Comment on above: Performed By: #### E MRAD ####NO LOCATION NEEDED Laboratory - Coagulationon 0 09-16-2021 aPTT Coag (PPP) [Time] 31 s 26 - 39 [facility] 6 [facility] Work Phone: Comment on above: Note new reference r ishmael as of 08/04/2021 at 10:00am. INR Coag (PPP) [Relative time] 1.0 {INR} 0.9 - 1.1 [facility] 6 [facility] Work Phone: PT Coag (PPP) [Time] 11.6 s 9.8 - 13.4 MG-G astroen terology-[facility] lwell 6 [facility] Work Phone: Comment on above: Note new reference r ishmael as of 08/04/2021 at 10:00am. No Panel Informationon 09-16 37 pg/mL 0 - 99 [facility]astroen [facility]ology-Rosendo moura 6 [facility] Work Phone: Comment on above: . <100 pg/mL - Heart failure [id number] pg/mL - Intermediate probability of acute heart. [...] [Mass/Vol] 3.5 g/dL Normal 3.4 - 5.0 [facility] Comment on above: Performed By: #### R ENAL #### [facility] [address] [place] [address] Anion gap [Moles/Vol] 14 mmol/L Normal 10 - 20 [facility] Comment on above: Performed By: #### R ENAL #### [facility] [address] [place] [address] Calcium [Mass/Vol] 8.9 mg/dL Normal 8.6 - 10.6 [facility] Comment on above: Performed By: #### R ENAL #### [facility] [address] [place] [address] Chloride [Moles/Vol] 101 mmol/L Normal 98 - 107 [facility] Comment on above: Performed By: #### R ENAL #### [facility] [address] [place] [address] Creatinine [Mass/Vol] 0.63 mg/dL Normal 0.50 - 1.05 [facility] Comment on above: Performed By: #### R ENAL #### [facility] [address] [place] [address] eGFR FEMALE >90 Normal >90 [facility] Comment on above: Result Comment: CALC ULATIONS OF ESTIMATED GFR ARE PERFORMED USING THE 2020 CKD-EPI STUDY REFIT EQUATION WITHOUT THE RACE VARIABLE FOR THE IDMS-TRACEABLE CREATININE METHODS. https://jasn.asnjournals.org/content//ASN.1508785 988 Performed By: #### R ENAL #### [facility] [address] [place] [address] Glucose [Mass/Vol] 88 mg/dL Normal 74 - 99 [facility] Comment on above: Performed By: #### R ENAL #### [facility] [address] [place] [address] HCO3 (Bld) [Moles/Vol] 29 mmol/L Normal 21 - 32 [facility] Comment on above: Performed By: #### R ENAL #### [facility] [address] [place] [address] Phosphate [Mass/Vol] 3.4 mg/dL Normal 2.5 - 4.9 [facility] Comment on above: Result Comment: The performance characteristics of phosphorus testing in heparinized plasma have been validated by the individual laboratory site where testing is performed. Testing on heparinized plasma is not approved by the FDA; however, such approval is not necessary. Performed By: #### R ENAL #### [facility] [address] [place] [address] Potassium [Moles/Vol] 3.7 mmol/L Normal 3.5 - 5.3 [facility] Comment on above: Performed By: #### R ENAL #### [facility] [address] [place] [address] Sodium [Moles/Vol] 140 mmol/L Normal 136 - 145 [facility] Comment on above: Performed By: #### R ENAL #### [facility] [address] [place] [address] Urea nitrogen [Mass/Vol] 10 mg/dL Normal 6 - 23 [facility] Comment on above: Performed By: #### R ENAL #### [facility] [address] [place] [address] Renal Function Panelon 09-16 Albumin BCP dye [Mass/Vol] 3.5 g/dL 3.4 - 5.0 [facility] 6 [facility] Work Phone: Anion gap [Moles/Vol] 14 mmol/L [...] Phone: Renal Function Panel >90 >90 MG-G robbramu macdonaldraiza-Rosendo moura 6 I Work Phone: Comment on above: CALCULATIONS OF IVY MATED GFR ARE PERFORMED USING THE 2020 CKD-EPI STUDY REFIT EQUATION WITHOUT THE RACE VARIABLE FOR THE IDMS-TRACEABLE CREATININE METHODS.https://jasn.asnjournals.org/content/early/ASN .5390532474 UA MICROSCOPICon 09-16-2021 BACTERIA 2+ /HPF Abnormal [facility] Comment on above: Performed By: #### U AMIC ####[id number] [place] [address] Mucus Ql (Urine sed) 1+ /LPF [facility] Comment on above: Performed By: #### U AMIC ####[id number] [place] [address] RBC 3 /HPF Normal 0-5 [facility] Comment on above: Performed By: #### U AMIC ####[id number] [place] [address] SQUAMOUS EPITH. CELLS 2 /HPF [facility] Comment on above: Performed By: #### U AMIC ####[id number] [place] [address] WBC 115 /HPF Abnormal 0-5 [facility] Comment on above: Performed By: #### U AMIC ####[id number] [place] [address] URINALYSISon 09-16-2021 Appearance (U) HAZY Normal CLEAR [facility] Comment on above: Performed By: #### U A ####[id number] [place] [address] Bilirubin Ql (U) Negative Normal NEGATIVE [facility] Comment on above: Performed By: #### U A ####[id number] [place] [address] Color (U) YELLOW Normal STRAW,YELLO W [facility] Comment on above: Performed By: #### U A ####[id number] [place] [address] Glucose Ql (U) Negative Normal NEGATIVE [facility] Comment on above: Performed By: #### U A ####[id number] [place] [address] Hemoglobin Ql (U) Negative Normal NEGATIVE [facility] Comment on above: Performed By: #### U A ####[id number] [place] [address] Ketones Ql (U) Negative Normal NEGATIVE [facility] Comment on above: Performed By: #### U A ####[id number] [place] [address] Leukocyte esterase Test strip Ql (U) LARGE (3+) Abnormal NEGATIVE [facility] Comment on above: Performed By: #### U A ####[id number] [place] [address] Nitrite Ql (U) Positive Abnormal NEGATIVE [facility] Comment on above: Performed By: #### U A ####[id number] [place] [address] pH (U) 6.0 [pH] Normal 5.0 - 8.0 [facility] Comment on above: Performed By: #### U A ####[id number] [place] [address] Protein Ql (U) Negative Normal NEGATIVE [facility] Comment on above: Performed By: #### U A ####[id number] [place] [address] Specific gravity (U) [Rel density] 1.011 Normal 1.005 - 1.035 [facility] Comment on above: Performed By: #### U A ####[id number] [place] [address] Urobilinogen (U) [Mass/Vol] 2.0 mg/dL High 0.0 - 1.9 [facility] Comment on above: Result Comment: Due [...] positive urobilinogen. Performed By: #### U A ####[id number] [address] URINE CULTURE,BACTERIALon URINE CULTURE,BACTERIAL PATIENT: MORALES LEE LOCATION: [facility]#: [id number] : 71 AGE: SEX: F ORDERED BY: [...] DOSE DEPENDENT NS=NONSUSCEPTIBLE X=REPORTED IN ERROR Normal [facility] Comment on above: Performed By: #### A FPA3 #### [facility] [address] [place] [address] Urinalysison 09-16-2021 Color (U) YELLOW See Below [...] Positive Abnormal NEGATIVE [facility]ology-[facility] 6 I Work Phone: Urinalysis 2.0 mg/dL above high [...] 09-16-2021 [facility] Venous Duplex Ultrasound DVT [place] [address] and Vascular Lab Report Lower Venous Duplex Ultrasound Patient Name: MORALES LEE Reading Physician: [id number] Arjun Romero MD, RPVI Study Date: 09/16/2021 Referring Physician: [id number] HARRISON RAGSDALE MRN/PID: [id number] PCP: Accession/Order#: [id number] CC Report to: Date of : 1975 Technologist: Isai Burleson RVT Gender: F Technologist 2: Admission Status: Outpatient Location Performed: [facility] Diagnosis/ICD: M79.89-Left leg swelling; M79.89-Right leg swelling Procedure/CPT: 04228 Peripheral venous duplex scan for DVT complete-[id number] CONCLUSIONS: Right Lower Venous: No evidence of [...] Spontaneous/Phasic Peroneal Yes None PTV Yes None [id number] Arjun Romero MD, RPCONSUELO Final Normal [facility] LAB Venous Duplex Ultra sound for DVTon 09-16-2021 [facility] Venous Duplex Ultrasound for DVT [facility]ology-[facility] 6 [facility] Work Phone: No Panel Informationon 09-15 [email or web address] rieveTestByDateTime?Patient IC=[id number]&Date= 2&Time=19%3a14%3a23%3a00&Te stType=ECG&Site=1&OutputTyp e=PDF&Ext=PDF [facility]ology-[facility] 6 [...] [facility] 6 [facility] Work Phone: [phone] [facility] 6 [facility] Work Phone: [phone] [facility] 6 [facility] Work Phone: [phone] [facility] 6 [facility] Work Phone: [phone] [facility]astroen [facility]ology-[facility] 6 [facility] Work Phone: [phone] [facility] 6 I Work Phone: [phone] [facility] 6 I Work Phone: [phone] [facility] 6 I Work Phone: [email or web address] [email or web address]?Patient VJ=[id number]&Date= 2&Time=19%3a14%3a42%3a00&Te stType=ECG&Site=1&OutputTyp e=PDF&Ext=PDF [facility] 6 [facility] Work Phone: [phone] [facility] 6 [facility] Work Phone: [phone] [facility] 6 [facility] Work Phone: [phone] [facility] 6 [facility] Work Phone: [phone] [facility]en [facility] 6 [facility] [...] Practice Nurse) done by Concetta Shi ([facility]) Admission - Reconciliation: 15-Sep-2021 19:03 by: Fidel Maciel (Resident)) Admission - Reset to Incomplete: 15-Sep-2021 21:47 by: Fidel Maciel ( (Resident)) Admission - Reconciliation: 15-Sep-2021 21:49 by: Fidel Maciel (Resident)) Admission - Reset to Incomplete: 16-Sep-2021 00:41 by: Fidel Maciel ( (Resident)) Admission - Reconciliation: 16-Sep-2021 00:42 by: Fidel Maciel (Resident)) Admission - Reset to Incomplete: 30-Sep-2021 14:18 by: Concetta Shi ([facility]) Admission - Reconciliation: 30-Sep-2021 14:20 by: Concetta Shi ([facility]) Home MedicationsEnteredLast Dose TakenReconciled with current Order Reconciliation Comment/ Additional Information acetaminophen 325 mg oral tablet 2 tab(s) orally every 6 hours, as needed while having post operative [id number] Reviewed and Held Ambien CR 12.5 mg oral tablet, extended release 1 tab(s) oral [id number] Zolpidem Tablet (AMBIEN)DOSE = 10 mg Oral At BedtimeNotes from Pharmacy: Substitution For Zolpidem (Ambien CR) 12.5 mg at Bedtime Ambien CR 12.5 mg oral tablet, extended release continued as the inpatient order Zolpidem Ankle Foot Orthosis for foot [id number] Reviewed and Held betamethasone topical valerate 0.1% topical cream 1 milena topical prn 15-Sep-2021 EnteredInError Reviewed and Held Bilateral Prafos - orthotics to fit, - ICD 10: R26.0, M21.37, M62.81 30-Sep-2021 Reviewed and Held calcium-vitamin D 500 mg-200 intl units (5 mcg) oral tablet 1 tab(s) orally 4 times a [id number] Calcium 500 mg - Vitamin D 200 [...] times a day, as needed for muscle [id number]-[id number] Cyclobenzaprine Tablet (FLEXERIL)DOSE = 10 mg Oral [...] topical 1% topical gel 1 milena topical [id number] Reviewed and Held DULoxetine 30 mg oral [...] 2 tab(s) orally once a day, As Pimbjy15-Mxd-3001 Reviewed and Held gabapentin 800 mg oral tablet 1 tab(s) oral 3 times a [id number]-4749 Gabapentin Capsule (NEURONTIN)DOSE = 800 mg Oral 3 Times a Day gabapentin 800 mg oral tablet continued as the inpatient order Gabapentin LEFT AFO -Orthotics to fit, ICD 10: M21.6624-Upv-2935 Reviewed and Held lidocaine 5% topical film Apply topically to affected area once a day, As Needed near surgical incision for incisional pain 15-Sep-2021 EnteredInError Reviewed and Held lisinopril 20 mg oral tablet 1 tab(s) oral once a [id number]-6254 Lisinopril Tablet (PRINIVIL, ZESTRIL)DOSE = 20 mg [...] patch TransDermal Every 24 HoursNotes from Pharmacy: [facility] nicotine 14 mg/24 hr transdermal [...] - available over the counter at any cnxaiazk17-Urs-0566 Reviewed and Held RIGHT AFO - Orthotics to fit, - M21. Reviewed and Held sennosides-docusate 8.6 mg-50 mg oral tablet 2 tab(s) orally 2 times a day , -Take while using oxycodone for post operative pain to prevent contipation 15-Sep-19 (more content not included)... [facility] Radiologyon 09-15-2021 XR Chest Single view Normal [facility]-G astroen terology-Rosendo gretaell 6 [facility] Work Phone: TH CHEST 1 VIEWon 09-15-2021 TH CHEST 1 VIEW Patient Name: MORALES LEE STUDY: CHEST 1 VIEW; 09/15/2021 7:21 pm INDICATION: pre-op . COMPARISON: 12/26/2020. ACCESSION NUMBER(S): [id number] ORDERING CLINICIAN: TOSHA BORJA FINDINGS: CARDIOMEDIASTINAL SILHOUETTE: [...] Electronically signed by: Esther PEDERSON MD [facility] Established Visit (Neurosurg ariana)on 09-08-2021 Established [...] in the Neurosurgery Spine Clinic at the [facility]. She is a very pleasant 46-year-old female, who recently underwent a L1 Vertbrectomy and T6-L4 Fusion with mi on 12/26/2020 and is status post 8 [...] obvious instability (more content not included)... Normal [employer] No Panel Informationon 09-08 Normal [facility]-Neurosur Yanira [...] and T6-L4 Fusion. COMPARISON: None. ACCESSION NUMBER(S): [id number] ORDERING CLINICIAN: LEX FREDERICK FINDINGS: Fused PA [...] appearance. Electronically signed by: JOSEPH SALAZAR MD [facility] Tobacco Screening.on Fall risk assessment b) One or more fall s in the last year -Nuha Doyle Work Phone: Tobacco use status [facility]PH[facility] a) Yes [employer]-Nuha Doyle Work Phone: Established Visit (Neurosurg ariana)on 05-05-2021 Established Visit (Neurosurgery) History of Present Illness I just had the pleasure of seeing Mrs. Jesus villarreal in the Neurosurgery Spine Clinic at the [facility]. She is a very pleasant 45 -year-old female, who recently underwent a L1 Vertbrectomy and T6-L4 Fusion with me on 12/26/2020 and is status post 4 Months out from her surgery. Today's visit was a virtual visit with the patient at her home and myself at [facility]. She mentions that overall she is doing [...] in Ms. LEE care. Lex Frederick MD, [facility], FAANS Director - Minimally Invasive Spine Surgery [facility] [employer] Lift Truck Operator of Neurological Surgery [facility] [employer] [facility] [place], [place] Some of this note was completed using [employer] voice recognition technology and sometimes the software [...] May 05 2021 9:18PM EST (Author) Normal [employer] Established Visit (Neurosurg ariana)on 01-08-2021 Established Visit [...] in the Neurosurgery Spine Clinic at the [facility]. She is a very pleasant 45 -year-old female, who recently underwent a L1 Vertbrectomy and T6-L4 Fusion with mi on 12/26/2020 and is status post 2 [...] the further treatment plan. Lex Frederick MD, [facility], FAANS Director - Minimally Invasive Spine Surgery [facility] Examiner of Neurological Surgery [facility] [employer] [facility] [place], [place] Some of this note was completed using [employer] voice recognition technology and sometimes the software [...] Jan 08 2021 1:19PM EST (Author) Normal [employer] NR MRI T-SPINE WOon 12-25-19 NR MRI T-SPINE WO Patient Name: MORALES LEE STUDY: MRI T-SPINE WO; 12/24/2020 12:50 pm INDICATION: Lumbar Pain Scoliosis, unspecified Unspecified cord compression. COMPARISON: None. ACCESSION NUMBER(S): [id number] ORDERING CLINICIAN: LEX FREDERICK TECHNIQUE: Multiplanar and [...] spine. Electronically signed by: LENNY HAGER MD [facility] NR MRI L-SPINE WOon 12-12-19 21 NR MRI L-SPINE WO Patient Name: MORALES LEE STUDY: MRI L-SPINE WO; ; 12/11/2020 1:38 pm INDICATION: Lumbar Pain Scoliosis, unspecified Low back pain. COMPARISON: CT lumbar spine from 10/07/2020. MRI lumbar spine from 03/11/2016. ACCESSION NUMBER(S): [id number] ORDERING CLINICIAN: LEX FREDERICK TECHNIQUE: MRI of [...] multiple levels. This study was interpreted at [facility]. Electronically signed by: WESLEY CARBAJAL MD [facility] Initial Visit (Neurosurgery) on 10-28-2020 Initial [...] Status:Resulted - Preliminary,Retrospective By Protocol Authorization; Done: [id number] 12:00AM Reason: Unspecified for Xray Spine, entire thoracic/lumbar, include skull, cervical and sacral spine when performed, 2 or 3 view Radiologist to Determine Optimal Study : Y What are the patient's signs and symptoms? 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 She now has been having severe symptoms [...] evaluated by another spine surgeon at the [facility] who recommended urgent surgery for her [...] even walk (more content not included)... Normal [facility] ROSENDONon 07-10-2019 CNPN Telephone (SPNMMN) JESUSMORALES ([id number]) 1975 F Date Time Provider Department 07/10/19 DIXIE TEE [facility] During your visit today, we recorded the [...] Order(s):CONSULT TO ORTHOPAEDIC SURGERY [[id number]] Order #: [id number]: 1 Prescriptions as of 07/10/2019 Sig: LISINOPRIL [...] Status:Closed by DIXIE TEE MD on 07/10/19 [facility] CNOVon 07-09-2019 CNOV Office Visit (SPNSMN ) MORALES LEE ([id number]) 1975 F Date Time Provider Department 07/09/19 9:30 AM STEVENSON QUAN SPNSMN During your visit today, we recorded the following information about you: Pulse Respiration Blood pressure Weight 89/minute 18/minute 124/74 95.8 kg Height 1.499 m Stevenson Quan MD 07/09/2019 2:56 PM Signed SPINE SURGERY OUTPATIENT CONSULT SERVICE DATE: 07/09/2019 PCP: No primary care provider on file. REFERRING PROVIDER: Dixie Tee MD [address] [facility] [id number] Consult requested for an opinion regarding the [...] 2006 - LX REPAIR RECURRENT VENTRAL HERNIA 2006 [...] file Gets together: Not on file Attends islam service: Not on file Active member of [...] Swelling - Phenergan [Prometha* Swelling MEDICATIONS: lisinopril-hydrochlorothiaz geraldien (PRINZIDE,ZESTORETIC) 20-12.5 mg per tablet Take 1 [...] with the patient or the patient?s personal brand representative. 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] Other Visit Diagnosis:Spinal stenosis of thoracic region [M48.04] Order(s):CT THORACIC SPINE WO LOISON [[id number]] Order #: [id number] FUTURE Prescriptions as of 07/09/2019 Sig: LISINOPRIL [...] Status:Closed by STEVENSON QUAN MD on 07/09/19 [facility] OBSOLETEon 07-09-2019 OBSOLETE Procedure (EMGMN) JESUSMORALES L ([id number]) 1975 F Date Time Provider Department 07/09/19 [...] ulnar nerve, right upper limb [G56.21] Order(s):EMG(NEURO/NI) [[id number]] Order #: [id number]: 1 Prescriptions as of 07/09/2019 Sig: LISINOPRIL [...] Status:Closed by JHON EASON MD on 07/09/19 [facility] PROGRESSon 07-09-2019 PROGRESS HNO ID: [id number] Author: Stevenson Quan Service: ? Author Type: Physician Type: Progress Notes Filed: 07/09/2019 2:56 PM Note Text: SPINE SURGERY OUTPATIENT CONSULT SERVICE DATE: 07/09/2019 PCP: No primary care provider on file. REFERRING PROVIDER: Dixie Tee MD [address] [facility] [address] Consult requested for an opinion regarding the [...] file Gets together: Not on file Attends islam service: Not on file Active member of [...] with the patient or the patient?s personal brand representative. The patient has elected to schedule [...] 09, 2019 TIME: 10:24 AM PAGER: Normal [facility] OT-XR DEXA BONE DENSITY IMPO RTon 07-06-2019 OT-XR DEXA BONE DENSITY IMPORT Images were obtained outside of [facility] [id number] Normal [facility] CASE MGT INIT ASSESon 2018 CASE MGT INIT ASS HNO ID: [id number] Author: Kimberly Mckenzie) MERA Dunaway Service: ? Author Type: Registered Nurse Type: Care Mgt Initial Assessment Filed: 06/20/2019 12:25 PM Note Text: CARE MANAGEMENT: ASSESSMENT AND DISCHARGE PLAN SERVICE DATE: 06/20/2019 SERVICE TIME: 12:21 PM PRIMARY CARE PHYSICIAN: No primary care provider on file. 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 No Advance Directive: Current Advance Directive: None Fish Cake Maker Attempted to Assist with AD Completion: Yes [...] None Has the Patient Been in a Retirement Facility in the Past 30 days? N/A SOCIAL: Living Arrangement: Home Lives With: Spouse Financial Resources: Disabled Primary Contact: Extended Emergency Contact Information Primary Emergency Contact: Lars Lee Address: [address] [place], [place] [address], [place] [id number] [place] [address] Mobile Relation: Spouse Supportive: Yes Other Important [...] 0 I feel financially burdened by my jnj-dh-dowtpx expenses for my prescription medication: Disagree completely [...] with . Does not utilize any DME, nursing home or community resources. Has d/c transportation via . Anticipate transitional care plan of home, no skilled needs identified at this time. TCC will remain available to assist as needed with transition planning. SIGNATURE: Kimberly Dunaway RN PATIENT NAME: Morales Lee DATE: June 20, 2019 TIME: 12:21 PM PAGER/CONTACT #: [phone] Normal [facility] CBCon 06-20-2019 Erythrocyte distribution width (RBC) [Ratio] 12.6 % Normal 11.5-15.0 [facility] Comment on above: Performed By: #### C BC #### [place] [id number] Hematocrit (Bld) [Volume fraction] 48.7 % High 36.0-46.0 [facility] Comment on above: Performed By: #### C BC #### [place] [id number] Hemoglobin (Bld) [Mass/Vol] 16.8 g/dL High 11.5-15.5 [facility] Comment on above: Performed By: #### C BC #### [place] [id number] MCH (RBC) [Entitic mass] 31.1 pG Normal 26.0-34.0 [facility] Comment on above: Performed By: #### C BC #### [place] [id number] MCHC (RBC) [Mass/Vol] 34.5 g/dL Normal 30.5-36.0 [facility] Comment on above: Performed By: #### C BC #### [place] [id number] MCV (RBC) [Entitic vol] 90.0 fL Normal 80.0-100.0 [facility] Comment on above: Performed By: #### C BC #### [place] [id number] Platelet mean volume (Bld) [Entitic vol] 10.6 fL Normal 9.0-12.7 [facility] Comment on above: Performed By: #### C BC #### [place] [phone] Platelets (Bld) [#/Vol] 334 10*3/uL Normal 150-400 [facility] Comment on above: Performed By: #### C BC #### [place] [id number] RBC (Bld) [#/Vol] 5.41 10*6/uL High 3.90-5.20 [facility] Comment on above: Performed By: #### C BC #### [place] [phone] WBC (Bld) [#/Vol] 10.85 10*3/uL Normal 3.70-11.00 [facility] Comment on above: Performed By: #### C BC #### [place] [id number] CONSULTon 06-20-2019 CONSULT HNO ID: [id number] Author: Evelyn Resendez Service: Pain Management Author [...] activity was identified. 06/20/2019 by Evelyn Resendez APRN.ESTATE PLANNING COUNSELOR PAST MEDICAL HISTORY Diagnosis Date - Degenerative [...] file Gets together: Not on file Attends islam service: Not on file Active member of [...] BMP, Mg, Phos Recent Labs 06/20/19 0539 06/19/19 2038 WBC 10.85 13.18* HB 16.8* 18.0* HCT [...] 20, 2019 TIME: 8:24 AM PAGER/CONTACT #: [phone] (M-F 8-5) Normal [facility] CT BRAIN WO IVCONon 06-20-20 CT BRAIN WO IVCON * * *Final Report* * * DATE OF EXAM: Jun 20 2019 1:31AM [facility] 0504 - CT BRAIN WO IVCON [...] No large cortical infarct or acute hemorrhage. Charting Clerk: ADITYA Transcribe Date/Time: Jun 20 2019 1:33A Dictated by : DAVONTE MOY MD This examination was interpreted and the report reviewed and electronically signed by: DAVONTE MOY MD on Jun 20 2019 1:35AM EST [id number] [facility] ECG COMPLETEon 06-20-2019 ECG COMPLETE NAME : MORALES LEE PID : [id number] : 1975 Gender : Female Race : ORD : [id number] Procedure Date : Jun 19 2019 23:57:03 Edit Date : Jun 20 2019 07:51:18 Diagnosis:Sinus rhythm Normal ECG no STEMI 1200a Confirmed by MD ARREDONDO LISA ([id number]), make up editor FOREST WALTON ([id number]) on 06/20/2019 7:51:18 AM Ventricular Rate : 85 BPM Atrial Rate : 85 BPM P-R Interval : 137 ms QRS Duration : 91 ms Q-T Interval : 365 ms QTC Calculation(Bazett) : 434 ms P [place] : 51 degrees R [place] : -13 degrees T [place] : 61 degrees Test Reason : Chest Pain Location : 302 : ED AVED-1 Overread By : MD ARREDONDO LISA Edited By : FOREST WALTON Referred By : , Acquired by : [id number], [facility] ED NOTEon 06-20-2019 ED NOTE HNO ID: [id number] Author: Yuki Cruz RN Service: ? Author Type: Registered Nurse Type: ED Notes Filed: 06/20/2019 1:40 AM Note Text: Patient got CT, it is still pending and Jessie MESA said ok to transfer to [place] with out results pending. Patient agreeing and understanding of transfer. updated on POC and transfer via telephone. DM here to take patient at this time. Pain is not improved at time of transfer. [facility] ED NOTE HNO ID: [id number] Author: Yuki Mckenzie) MERA Cruz Service: ? Author Type: Registered Nurse Type: ED Notes Filed: 06/20/2019 1:15 AM Note Text: Clean catch urine specimen obtained and sent. [facility] ED NOTE HNO ID: [id number] Author: Yuki Mckenzie) MERA Cruz Service: ? [...] with getting transferred to another facility. Normal [facility] ED NOTE HNO ID: [id number] Author: Yuki Mckenzie) MERA Cruz Service: ? Author Type: Registered Nurse Type: ED Notes Filed: 06/20/2019 3:28 AM Note Text: Patient stated Valium did not help. She continues to be in pain and upset. She wanted to speak with someone in charge and update on POC. Normal [facility] HISTORY PHYSICALon HISTORY PHYSICAL HNO ID: [id number] Author: Talita Wesley RN Service: General Internal [...] arm. Neck pain described as constant throbbing /10. She states numbness/tingling has worsened in intensity [...] tightness that is constant. Notices a decreased boilermaker ship strength and weakness in left hand. She [...] rotation 40/80% Decreased left C5-C7 sensation. Left boilermaker ship strength 2/5. Right boilermaker ship strength 5/5. UE DTR intact and equal. [...] tightness into left arm, weak left hand boilermaker ship strength, and worsening severity of numbness/tingling -Afebrile [...] Needs confirmed with patient pharmacy. Patient uses [facility] in [place], [place]. Patient provided #[phone]. Will call in am to confirm dose. Nicotine Abuse Assessment AND Plan: Smokes 1 1/2 PPD for 20 years. Smoking cessation advised. Nicotine patch ordered. Medication and Non-Pharmacologic VTE Prophylaxis/Anticoagulants VTE Prophylaxis: VTE prophylaxis appropriate SIGNATURE: Talita Wesley APRN.CNP PATIENT NAME: Morales Lee DATE: June 20, 2019 TIME: 2:58 AM PAGER/CONTACT #: CDU # [phone] [facility] NURSING PROGon 06-20-2019 NURSING PROG HNO ID: [id number] Author: Austyn WilksRn) MERA Berumen Service: Nursing [...] note was completed by: AUSTYN BERUMEN RN [facility] NURSING PROG HNO ID: [id number] Author: Austyn WilksRn) MERA Berumen Service: Nursing Author Type: Registered Nurse Type: Nursing Progress Note Filed: 06/20/2019 8:10 AM Note Text: Nursing Progress Note Patient Name: Morales Lee Patient Location: /- 2 Daily Note:06/20/2019 -assumed care of patient, pt is requesting her suboxone. We have to call to verify dosage. -MERA Acosta called pharmacy provided by night CLIENT APPLICATION SUPPORT SPECIALIST and the pharmacy does not open until 9am. We will call back to verify dose later. -Dr. Kwon called to speak with this RN, he will be in to see the patient later today. This note was completed by: AUSTYN BERUMEN RN [facility] NURSING PROG HNO ID: [id number] Author: Guadalupe WilksRn) MERA Herbert Service: ? Author Type: Registered Nurse Type: Nursing Progress Note Filed: 06/20/2019 4:33 AM Note Text: Nursing Progress Note Patient Name: Morales Lee Patient Location: [id number] 2 Daily Note:AANDO x 3. C/O left [...] note was completed by: Guadalupe Herbert RN [facility] PROGRESSon 06-20-2019 PROGRESS HNO ID: [id number] Author: Sedrick Martin Service: General Internal Medicine [...] rales. Cor:RSR, no murmurs. 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 DATA: Diagnostic tests [...] Non-Pharmacologic VTE Prophylaxis/Anticoagulants 06/20/19399 pneumatic compression stockings (ct,nh) 06/20/19399 activity - mobilize patient ([place]) VTE Prophylaxis: appropriate SIGNATURE: Sedrick Martin MD PATIENT NAME: Morales Lee DATE: June 20, 2019 TIME: 10:41 AM PAGER: Normal [facility] PROGRESS HNO ID: [id number] Author: Sedrick Martin Service: General Internal Medicine Author Type: Physician Type: Progress Notes Filed: 06/20/2019 8:25 AM Note Text: As per Pain Management Consult still pending, I was notified by Pain Management to resume the pt.' s home Suboxone dosage until pt. Seen later today. Normal [facility] Troponin Ton 06-20-2019 Troponin T.cardiac [Mass/Vol] ug/L Normal 0.000-0.029 [facility] Comment on above: Performed By: #### T NT #### [place] [address] Troponin T.cardiac [Mass/Vol] ug/L Normal 0.000-0.029 [facility] Comment on above: Performed By: #### T NT #### [place] [address] Basic Metabolic Panlon 06-19 Anion gap [Moles/Vol] 14 mmol/L Normal 9-18 [facility] Calcium [Mass/Vol] 10.3 mg/dL High 8.5-10.2 [facility] Chloride [Moles/Vol] 96 mmol/L Low 97-105 [facility] CO2 [Moles/Vol] 29 mmol/L Normal 22-30 [facility] Creatinine [Mass/Vol] 0.59 mg/dL Normal 0.58-0.96 [facility] eGFR- Amer. >60 Normal [facility] GFR/1.73 sq M predicted among non-blacks MDRD (S/P/Bld) [Vol rate/Area] mL/min/{1.73_m2} Normal [facility] Comment on above: Result Comment: eGFR [...] GFR. Glucose [Mass/Vol] 114 mg/dL High 74-99 [facility] Comment on above: Result Comment: The [place] Diabetes Association (ADA) provides guidance for cutoff [...] Standards of Medical Care in Diabetes 2016, [place] Diabetes Association. Diabetes Care. 2016.39(Suppl 1). Potassium [Moles/Vol] 3.7 mmol/L Normal 3.7-5.1 [facility] Sodium [Moles/Vol] 139 mmol/L Normal 136-144 [facility] Urea nitrogen [Mass/Vol] 7 mg/dL Normal 7-21 [facility] CBC and Differentialon 06-19 Abs Baso 0.09 k/uL Normal <0.11 [facility] Abs [place] 0.61 k/uL Normal <0.87 [facility] Abs Neut 7.56 k/uL High 1.45-7.50 [facility] Absolute nRBC <0.01 Normal <0.01 [facility] Basophils/100 WBC (Bld) 0.7 % Normal [facility] DTYPE Auto Diff Normal [facility] Eosinophils (Bld) [#/Vol] 0.25 10*3/uL Normal <0.46 [facility] Eosinophils/100 WBC (Bld) 1.9 % Normal [facility] Erythrocyte distribution width (RBC) [Ratio] 12.0 % Normal 11.5-15.0 [facility] Hematocrit (Bld) [Volume fraction] 52.6 % High 36.0-46.0 [facility] Hemoglobin (Bld) [Mass/Vol] 18.0 g/dL High 11.5-15.5 [facility] Lymphocytes (Bld) [#/Vol] 4.67 10*3/uL High 1.00-4.00 [facility] Lymphocytes/100 WBC (Bld) 35.4 % Normal [facility] MCH (RBC) [Entitic mass] 30.0 pG Normal 26.0-34.0 [facility] MCHC (RBC) [Mass/Vol] 34.2 g/dL Normal 30.5-36.0 [facility] MCV (RBC) [Entitic vol] 87.7 fL Normal 80.0-100.0 [facility] Monocytes/100 WBC (Bld) 4.6 % Normal [facility] Neutrophils/100 WBC (Bld) 57.4 % Normal [facility] NRBCs 0.0 /100 WBC Normal 0 [facility] Platelet mean volume (Bld) [Entitic vol] 10.1 fL Normal 9.0-12.7 [facility] Platelets (Bld) [#/Vol] 370 10*3/uL Normal 150-400 [facility] RBC (Bld) [#/Vol] 6.00 10*6/uL High 3.90-5.20 [facility] WBC (Bld) [#/Vol] 13.18 10*3/uL High 3.70-11.00 [facility] ED NOTEon 06-19-2019 ED NOTE HNO ID: [id number] Author: Yuki Cruz RN Service: ? Author Type: Registered Nurse Type: ED Notes Filed: 06/20/2019 3:27 AM Note Text: Patient has requested valium, she says that she takes it at home. [facility] updated. [facility] ED NOTE HNO ID: [id number] Author: Yuki Mckenzie) MERA Cruz Service: ? Author Type: Registered Nurse Type: ED Notes Filed: 06/20/2019 3:27 AM Note Text: Patient is complaining of nausea. She is requesting her saboxon as well and [employer] was updated on request. [facility] ED NOTE HNO ID: [id number] Author: Yuki Mckenzie) MERA Cruz Service: ? Author Type: Registered Nurse Type: ED Notes Filed: 06/19/2019 7:54 PM Note Text: Said that after her surgery in 2016 her left pinky and ring finger are numb but she said lately her other fingers on that hand have been getting numb as well. [facility] ED NOTE HNO ID: [id number] Author: Vanessa Ruiz RN Service: ? Author Type: Registered Nurse Type: ED Notes Filed: 06/19/2019 6:48 PM Note Text: Patient has chronic neck pain for three years. Saw spine doctor 06/12/2019 for the same had x rays. Denies any new injury. States pain goes into left arm. Arrived via wheelchair [facility] ED PROV NOTEon 06-19-2019 ED PROV NOTE HNO ID: [id number] Author: Tracy Arredondo Service: Emergency Medicine Author [...] light touch over bilateral lower extremities. 3/5 boilermaker ship, bicep, tricep strength over LUE. Decreased sensation to light touch over left upper extremity in median, radial, and ulnar nerve distribution. 5/5 boilermaker ship, bicep, tricep strength of R UE. Skin: [...] neurosurgical consult as previous notes from her excellence specialist recommend obtaining EMG and possible further [...] a neurosurgical consult she warrants transfer to [facility] for further management of her condition. We have low suspicion for stroke at this time as pain appears to be radicular in nature and she has had worsening progression of her symptoms with documented notes from spine (Dr. Álvarez) suggesting this worsening pain and numbness. The ESTATE PLANNING COUNSELOR, Talita, at [facility] recommended we obtain a CT brain and she must rule out any acute intercranial abnormality that may be contributing to the patient's symptoms. Therefore, this study was ordered and will be followed up by the night team especially if there is any acute intracranial abnormality. As long as there is no acute intracranial abnormality she will be transferred to [facility] for further evaluation and management of her condition. Patient voiced understanding was in agreement with the above plan. This patient's case was discussed with Dr. Arredondo who personally evaluated the patient supervised her care. The patient was TRANSFERRED to: [facility] Condition at time of disposition: stable SIGNATURE: NORMA Montgomery (Pa) 06/20/19 0026 Attending Note I have personally performed a face to face assessment of the patient and have reviewed the PA/FISH HATCHERY SUPERVISOR note. My schofield findings include: History is [...] of 5 strength left upper extremities in boilermaker ship strength as well as biceps and triceps [...] worsening neck pain we will place her [place] observation for cardiac rule out as well [...] and requested by the observation provider at [place] as they were concerned about stroke. However I doubt this and did not feel this was necessary however it is currently pending and patient will be transferred to [place] if this is unremarkable. Signature: Tracy Arredondo, Date: 06/20/2019 Time: 12:26 AM Tracy Arredondo 06/20/19 0033 Normal [facility] 06-19-2019 Magnesium [Mass/Vol] 2.0 mg/dL Normal 1.7-2.3 [facility] Troponin Ton 06-19-2019 Troponin T.cardiac [Mass/Vol] ug/L Normal 0.000-0.029 [facility] CNOVon 06-12-2019 CNOV Office Visit (SPNMMN ) MORALES LEE ([id number]) 1975 F Date Time Provider Department 06/12/19 8:00 AM DIXIE TEE [facility] During your visit today, we recorded the [...] file Gets together: Not on file Attends islam service: Not on file Active member of [...] Swelling Date Reviewed: 06/12/2019 Reviewed by: Talita Bone Ma - Fully Assessed Reason for Visit: New Patient [172] Primary Visit Diagnosis:Chronic pain syndrome [G89.4] Other Visit Diagnoses:Scoliosis (and kyphoscoliosis), idiopathic [M41.20] Compression fracture of thoracic vertebra, initial encounter, unspecified thoracic vertebral level (HCC) [S22.000A] H/O cervical spine surgery [Z98.890] Order(s):PATIENT PLACED ON SPINE CARE PATH [8580636] Order #: [id number]: 1 XR SCOLIOSIS PA STAND/LAT 2V [6305819] Order #: [id number] FUTURE EMG(NEURO/NI) [8779089] Order #: [id number]: 1 FUTURE CONSULT TO SPINE SURGERY [3494991] Order #: [id number]: 1 FUTURE Prescriptions as of 06/12/2019 Sig: [...] encounter FLUOXETINE 20 MG CAPSULE >> Talita Bone Ma 06/12/2019 8:07 AM >> ELVER DASILVA TALITA Asaeljacque Jun 12, 2019 8:07 AM Not taking ZONISAMIDE 100 MG CAPSULE >> Talita Bone Ma 06/12/2019 8:08 AM >> ELVER DASILVA TALITASHRUTHI Whitley Jun 12, 2019 8:08 AM Not taking TOPIRAMATE 100 MG TABLET >> Talita Bone Ma 06/12/2019 8:07 AM >> ELVER DASILVA TALITASHRUTHI Whitley Jun 12, 2019 8:07 AM Not taking [...] Status:Closed by DIXIE TEE MD on 06/12/19 [facility] PROGRESSon 06-12-2019 PROGRESS HNO ID: [id number] Author: Zoey Aponte (Rt) Robert Trejo Service: Radiology Author Type: Steffen House Supervisor Type: Progress Notes Filed: 06/12/2019 10:10 AM [...] Daxa June 12, 2019 10:09 AM Normal [facility] PROGRESS HNO ID: [id number] Author: Dixie Tee Service: ? Author Type: [...] file Gets together: Not on file Attends islam service: Not on file Active member of [...] June 12, 2019 TIME: 8:12 AM Normal [facility] XR SCOLIOSIS 2V PA STAND/LAT on [...] changes and multilevel compression deformities as described. Charting Clerk: PSCB Transcribe Date/Time: Jun 12 2019 4:36P Dictated by : CAROLINA MOJICA MD This examination was interpreted and the report reviewed and electronically signed by: CAROLINA MOJICA MD on Jun 12 2019 4:39PM EST [id number] Normal [facility] PROGRESSon 05-14-2019 PROGRESS HNO ID: [id number] Author: Laury Levin Service: ? Author Type: Physician Prize Coordinator Type: Progress Notes Filed: 05/14/2019 1:26 PM [...] to rule out cubital tunnel syndrome. Normal [facility] PROGRESSon 05-09-2019 PROGRESS HNO ID: [id number] Author: Kathia Kelly Service: ? Author Type: ? Type: Progress Notes Filed: 05/14/2019 1:26 PM Note Text: Patient name: Morales Lee Are you being referred by a [facility] Provider or Pain Management Provider at [facility]? No If answer is YES please schedule directly with surgeon, triage does not need to be completed. Is this a self-referral No If not, who is the Referring Provider: Dr. Hendricks/ [facility] MRI/CT/myelogram within 12 months: Yes If No , please refer to medical spine or PCP to complete above imaging, triage does not need to be completed Imaging viewable in Epic: No If not, please provide [phone] to fax in imaging reports for review. [...] will fax imaging report and op notes. [phone] Normal [facility] CT-CT C-SPINE WO CON IMPORTo n 02-13-2019 CT-CT C-SPINE WO CON IMPORT Images were obtained outside of [facility] [id number] Normal [facility] CT-CT L-SPINE WO CON IMPORTo n 02-13-2019 CT-CT L-SPINE WO CON IMPORT Images were obtained outside of [facility] [id number] Normal [facility] Vital Signs Date Time Vital Sign Value Performing Clinician Facility 06-07-2022 12:48-0400 Diastolic blood pressure 83 mm[Hg] No [facility]cp [facility] 06-07-2022 12:48-0400 Heart rate 67 /min No Pcp Required [facility] 06-07-2022 12:48-0400 Respiratory rate 16 /min No Pcp Required [facility] 06-07-2022 12:48-0400 SaO2% (BldA) [Mass fraction] 96 % No Pcp Required [facility] 06-07-2022 12:48-0400 Systolic blood pressure 148 mm[Hg] No Pcp Required [facility] 01-06-2022 10:51-0400 Blood Pressure Location NATALIA MANNING [facility] 01-06-2022 10:51-0400 Diastolic blood pressure 86 mm[Hg] NATALIA MANNING [facility] 01-06-2022 10:51-0400 Heart rate 86 /min NATALIA MANNING [facility] 01-06-2022 10:51-0400 Respiratory rate 16 /min [facility]AL[facility] MANNING [facility] 01-06-2022 10:51-0400 Systolic blood pressure 132 mm[Hg] NATALIA MANNING [facility] 09-08-2021 14:15-0500 Body height 149.86 cm No PCP None MG-Neurosurgery- Ah uja Work Phone: 09-08-2021 14:15-0500 Body mass index (BMI) [Ratio] 36.96 kg/m2 No PCP None ZP-Ytuheurjfyng-Ca uja Work Phone: 09-08-2021 14:15-0500 Body surface area Derived from formula 1.78 m2 No PCP None GD-Tpynolxvwefr-Mr uja Work Phone: 09-08-2021 14:15-0500 Body weight 83.01 kg No PCP None [facility]-Neurosurgery- Ah uja Work Phone: 09-08-2021 14:15-0500 Diastolic blood pressure 68 mm[Hg] No PCP None NQ-Acnrsusaudzx-He uja Work Phone: 09-08-2021 14:15-0500 Heart rate 96 /min No PCP None MG-Neurosurgery- Ah uja Work Phone: 09-08-2021 14:15-0500 Respiratory rate 16 /min No PCP None MG-Neurosurgery -Ah uja Work Phone: 09-08-2021 14:15-0500 Systolic blood pressure 115 mm[Hg] No PCP None FF-Ktjrlkoiucyt-Ao uja Work Phone: 09-08-2021 14:15-0500 0 1 No PCP None MG-Neurosurgery- Ah uja Work Phone: Comment on above: [employer] 01-01-2021 16:46-0400 Heart rate 111 /min No Pcp Required [facility] 01-01-2021 16:46-0400 SaO2% (BldA) [Mass fraction] 95 % No Pcp Required [facility] 01-01-2021 14:00-0400 Body temperature 96.8 [degF] No Pcp Required [facility] 01-01-2021 14:00-0400 Diastolic blood pressure 77 mm[Hg] No Pcp Required [facility] 01-01-2021 14:00-0400 Respiratory rate 18 /min No Pcp Required [facility] 01-01-2021 14:00-0400 Systolic blood pressure 114 mm[Hg] No Pcp Required [facility] Encounters Encounter Date Encounter Type Care [...] Facility:H1 Start: 12-31-2022 ambulatory SHAIKH MICAH Facility: [facility] Start: 12-22-2022 End: 12-22-2022 ambulatory MENDOSA H MICAH Facility:H1 Start: 12-08-2022 AUDIT No PCP None [facility]-Neurosu rgery-[place] [address] [place] Work Phone: Start: 12-08-2022 Chart Update No PCP None [facility]-Neurosu rgery-[place] [address] [place] Work Phone: Start: 11-26-2022 End: 11-26-2022 Patient encounter procedure Danya Bingham [facility] Start: 11-22-2022 ambulatory SHAIKH Shirley OBRIEN Facilit y:H1 Start: 11-09-2022 End: 11-09-[address] DEVANTE Rojas Facility:H1 Start: 10-15-2022 End: 10-15-2022 ambulatory KYRA Rojas Facility:H1 Start: 09-24-2022 End: 09-24-2022 Patient encounter procedure Danya Bingham [facility] Start: 09-01-2022 Encounter for preprocedural laboratory examination DANYA BINGHAM . [facility] Start: 08-25-2022 End: 08-25-2022 ambulatory SHAIKH Shirley OBRIEN Facility: Start: 08-24-2022 End: 08-25-2022 ambulatory MENDOSA Shirley OBRIEN Facility:H1 Start: 08-24-2022 End: 08-25-2022 Encounter for preprocedural laboratory examination SHAIKH Shirley OBRIEN Facility:H1 Start: 08-21-2022 ambulatory SHAIKH Shirley OBRIEN Facilit y:H1 Start: 07-16-2022 End: 07-16-2022 Patient encounter procedure Danya Bingham [facility] [place] Start: 06-06-2022 End: 06-07-2022 Emergency department patient visit Yony Aguirre [facility] Adult ED Blue 45 Start: 05-31-2022 End: 05-31-[address] ALEXANDRU SORIA . Facility:H1 Start: 05-19-2022 End: 05-19-2022 Off-Site Danya Bingham [facility] [place] Start: 05-07-2022 End: 05-07-2022 ambulatory SHAIKH Shirley OBRIEN Facility:H1 Start: 04-08-2022 End: 04-08-[address] ABHINAV WEBB Facility:H1 Start: 03-30-2022 End: 03-31-[address] CLIF HUTTON Facility:H1 Start: 03-07-2022 End: 03-07-[address] ABHINAV WEBB Facility:H1 Start: 03-06-2022 End: 03-06-2022 ambulatory SHAIKH Shirley BORIEN Facility:H1 Start: 02-21-2022 End: 02-21-2022 ambulatory IVON LAWS . Facility:H1 Start: 02-10-2022 ambulatory DANYA BINGHAM . Facility: H1 Start: 02-04-2022 End: 02-04-2022 Off-Site Danya Bingham [facility] Start: 01-11-2022 Chart Update No PCP None MG-Neurosu [facility] [place] Work Phone: Start: 01-11-2022 End: 01-11-2022 Patient encounter procedure Danya Bingham [facility] Start: 01-07-2022 AUDIT No PCP None MG-Neurosu rgery-[facility] [place] [address] Work Phone: Start: 01-06-2022 End: 01-06-2022 Patient encounter procedure NATALIA MANNING [facility] [place] Start: 10-13-2021 AUDIT No PCP None MG-Neurosu rgery-[facility] Work Phone: Start: 09-29-2021 AUDIT No PCP None MG-Gastroe nterology-B [facility] 6 [facility] Work Phone: Start: 09-15-2021 End: 10-02-2021 Evaluation and management of inpatient Dr. LEX FREDERICK Facility:[facility] Start: 09-09-2021 AUDIT No PCP None MG-Neurosu rgery-[place] Work Phone: Start: 09-08-2021 Office outpatient vi sit 40 minutes No PCP None RI-Duxmkacuwfow-Uglxu Work Phone: Start: 05-05-2021 Postop follow up vis it related to original px No PCP None BO-Zudfketomlcq-ZOQFR Work Phone: Start: 12-26-2020 End: 01-01-2021 Evaluation and management of inpatient Lex Frederick [facility] [id number] [id number] Preoperative state No PCP None MG-Neuros urgery-[facility] Work Phone: Procedures Date Procedure Procedure Detail Performing Clinician Start: 09-21-[address] EFRAIN FREDERICK Comment on above: Performed By: #### A FPA3 #### [facility] [address] [place] [address] Start: 09-21-[address] EFRAIN FREDERICK Comment on above: Order Comment: VENECIA ESPINO, 09/21/2021 05:08TEST TYPE + SCREEN WAS CANCELLED, 09/21/2021 05:06 NO PHLEB ID ON TUBE. Result Comment: CALL ED MERA ESPINO, 09/21/2021 05:08 Performed By: #### A FPA3 #### [facility] [address] [place] [address] Start: 09-17-[address] EFRAIN FREDERICK Comment on above: Performed By: #### T +S #### [facility] [address] [place] [address] Start: 12-27-2020 End: 12-28-2020 Release Blood Product-Packed Red Blood Cells Devante Defta Start: 12-26-2020 Renal function 2000 panel - Serum or Plasma Nabil Awan Appendectomy NATALIA MANNING Cholecystectomy NATALIA PER TRISH Hernia NATALIA NIGEL Hysterectomy NATALIA NIGEL mylogr NATALIA NIGEL Plan of Treatment Date Care Activity Detail Author Start: 10-17-2023 End: 10-17-2023 Patient encounter procedure 10/17/2023 6:30 PM EST Office Visit [facility] [address] [place] [id number] Shaikh Obrien MD [address] [place] [id number] [facility] Start: 05-06-2023 Influenza vaccination Influenza Vacc ine (#1) [facility] Start: 11-03-2021 POV, Provider: Lex Frederick, Status: Pen, Time: 2:00 PM POV, Provider: Lex Frederick, Status: Pen, Time: 2:00 PM MN-Qnvfezrwtkanigiy-Kj lwell 6 [facility] Work Phone: Start: 10-07-2021 Admission to same da y surgery center RNVISIT, Provider: NURSE VISIT ASHLEY 5TH,MGNEUROS[facility], Status: Pen, Time: 10:15 AM NU-Tvzbkqaddwygavef-Yi zeny 6 [facility] Work Phone: Start: [facility]-18-20[facility]: Lex Frederick, Status: Pen, Time: 8:00 AM [facility], Provider: Lex Frederick, Status: Pen, Time: 8:00 AM NJ-Khbmyehltcpm-Cgqhi Work Phone: Start: 01-08-2021 Patient encounter procedure Neurosurgery Miguel Start: 12-31-2020 End: 01-01-2022 [facility] Comment on above: please place at beds geraldine for drain removal Start: 12-26-2020 End: 12-27-2021 Naloxone Injectable 0.4 mg IntraVenous Push Once ; (NARCAN)DOSE = 0.2 mg IntraVenous Push Once, PRN patient is unarousable, and respiratory rate lessClinician Notes: HOLD DIGESTER OPERATOR Infusion and notify H.O. immediately Start: 26-Dec-2020 End: 26-Dec-2021 Ordered: 26-Dec-2020 Nabil Awan Intent Comments: HOLD DIGESTER OPERATOR Infusion and notify H.O. immediately [facility] Comment on above: HOLD DIGESTER OPERATOR Infusion an d notify H.O. immediately Start: 2013 Screening for malignant neoplasm of breast Mammogram [facility] Start: 2003 Screening for malignant neoplasm of cervix [facility] Start: 1994 Screening for malignant neoplasm of cervix Pap Smear [facility] Start: 1973 Screening for malignant neoplasm of colon [facility] Immunizations Immunization Date Immunization Notes Care Provider Delfino chu 02-22-2020 tetanus toxoid, redu luis diphtheria toxoid, and acellular pertussis vaccine, adsorbed Danya Bingham [facility] 12-05-2018 hepatitis A vaccine, adult dosage Danya Bingham [facility] Payers Date Payer Category Payer Unknown 1973 Unknown [id number] 2.16. [id number] 1973 Unknown [id number] 2.16. 840.1.101084.3.579.2.356 1973 Unknown [id number] 2.16.84 0.1.273690.3.579.2.593 1973 Unknown [id number] 2.16.84 0.1.467257.3.579.2.593 1973 Unknown [id number] 2.16.84 0.1.099125.3.579.2.593 1973 Unknown [id number] 2.16.84 0.1.673876.3.579.2.593 1973 Unknown [id number] 2.16.84 0.1.659854.3.579.2.593 1973 Unknown [id number] 2.16.84 0.1.290860.3.579.2.593 1973 Unknown [id number] 2.16.84 0.1.983132.3.579.2.593 1973 Unknown [id number] 2.16.84 0.1.325757.3.579.2.593 1973 Unknown [id number] 2.16.84 0.1.553714.3.579.2.593 1973 Unknown [id number] 2.16.84 0.1.141223.3.579.2.593 1973 Unknown [id number] 2.16.84 0.1.831944.3.579.2.593 1973 Unknown [id number] 2.16.84 0.1.270763.3.579.2.593 1973 Unknown [id number] 2.16.84 0.1.763353.3.579.2.593 1973 Unknown [id number] 2.16.84 0.1.515127.3.579.2.593 1973 Unknown [id number] 2.16.84 0.1.807615.3.579.2.593 1973 Unknown [id number] 2.16.84 0.1.636846.3.579.2.593 1973 Unknown [id number] 2.16.84 0.1.120171.3.579.2.593 1973 Unknown [id number] 2.16.8 40.1.286827.3.579.2.1046 1973 Unknown [id number] 2.16.8 40.1.544724.3.579.2.727 1959 Unknown [id number] Social History Date Type Detail Facility [facility] Tobacco smoking consumption unknown [facility] Start: 08-01-2023 End: 08-08-2023 History of drug use History of drug use MD-Utkflneptxcl-DUEF C Work Phone: Start: 01-05-2016 End: 08-01-2023 Tobacco smoking status Smokes tobacco daily (finding) [facility] Comment on above: 1ppd 1ppd Start: 08-08-2023 Sex Assigned At Female [facility] History of tobacco use Cigarette Smoker [facility] Start: 08-08-2023 Alcohol intake Lifetime non-d prasanna (finding) [facility] Start: 1975 Sex Assigned At [...] Facility 11-26-2022 Functional Status N/A [facility] 07-16-2022 Functional Status N/A [facility] Functional observable [facility] Mental Status Date Assessment Result Facility 12-29-2020 Cognitive functi ons [id number] [facility] Clinical Notes 12-26-2020 to 11-26-2022 Note [...] 10/01/2017 Document Revised: 12/14/2019 Document Reviewed: 10/01/2017 [employer] Patient Education 2019 [employer]. Follow Up Care 10/14/2022 11:11:52 With:Zachery HARKINS, CAROLEE Anderson, URO Address: When: Unknown [facility] 09-23-2022 Hospital Discharg e instructions Patient [...] including vitamins, herbs, eye drops, creams, and zotd-qav-zwpukof medicines. Any problems you or family members [...] provider tells you to take them. Taking btmc-mpd-lzszgkk medicines, vitamins, herbs, and supplements. General instructions [...] 10/08/2019 Document Reviewed: 10/08/2019 Elsevier Patient Education 2019 [employer] Follow Up Care 08/31/2022 10:49:10 With:Danya Bingham MD, URL, URO Address: When: Unknown [facility] 07-16-2022 Hospital Discharg e instructions Patient Education [...] nerve stimulation). For women, using a medical office coordinator to prevent urine leaks. This is a [...] right after experiencing incontinence. General instructions Take akts-ape-cjjxana and prescription medicines only as told by [...] 09/29/2005 Document Revised: 09/01/2018 Document Reviewed: 12/01/2017 [employer] Patient Education 2019 [employer]. Follow Up Care 06/15/2022 11:30:52 With:Zachery HARKINS, CAROLEE Anderson, URO Address: When: Unknown [facility] 02-04-2022 Hospital Discharg e instructions Patient Education [...] nerve stimulation). For women, using a medical office coordinator to prevent urine leaks. This is a [...] right after experiencing incontinence. General instructions Take tnov-rbx-ddfdpnz and prescription medicines only as told by [...] 09/29/2005 Document Revised: 09/01/2018 Document Reviewed: 12/01/2017 [employer] Patient Education 2020 [employer]. 02/04/2022 16:23:10 Calorie Counting for Weight Loss [...] 08/22/2006 Document Revised: 05/11/2019 Document Reviewed: 07/22/2017 [employer] Patient Education 2020 [employer]. Follow Up Care 02/04/2022 13:28:46 With:Danya Bingham MD, URL, URO Address: When: Unknown [facility] 01-11-2022 Evaluation + Plan note Extrac [...] and Plan Diagnosis Bowel and bladder incontinence (FCB13-IP R32, Billing Diagnosis, Medical). Incontinence without sensory awareness (WSH84-HJ N39.42, Working, Medical). Diagnosis Bowel and bladder incontinence (GUK61-TX R32, Billing Diagnosis, Medical). Incontinence without sensory awareness (IMN61-UM N39.42, Working, Medical). Addendum by Zachery HARKINS, Danya Rhodes on January 11, 2022 10:23 EDT Post procedure diagnosis: Intrinsic sphincter deficiency, acontractile detrusor [facility]05-09-2022 Hospital Discharge instructions Patient Education 01/11/2022 [...] 01/06/2022 11:41:34 With:Danya Bingham Address: [address], [address] [phone] Business (1) When: Unknown Comments:Call for followup appointment in 2-3 weeks With:Danya Bingham Address:Unknown When: Unknown [facility]05-04-2022 Hospital Discharge instructions Patient Education 01/06/2022 [...] clinics. Check with your local health department. [facility], where you would pay only what you can afford. To find one near you, check this website: [email or web address]/ [facility]. These are part of a program for [...] information Learn more about cervical cancer from: [employer]: www.acog.org/Patients/FAQs/Cervical-Cancer [employer]: www.cancer.org/cancer/cervicalcancer/ U.S. Centers for Disease [...] 09/05/2016 Document Revised: 09/23/2018 Document Reviewed: 04/19/2017 [employer] Patient Education 2020 [employer]. 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 Instead, bend at knees to berry picker objects (more content not included)...[facility]01-26-2022 NoteThis report has been cancelled.[facility]01-17-2022 NotePROCEDURE DETAILS Postoperative Diagnosis: lumbar stenosis Surgeon: Dr. Lex Frederick Resident/Fellow/Other Prize Coordinator: Chery Awan Procedure: posterior L4-L5 decompression posterior [...] Completion Last Updated: 22-Sep-2021 10:54 by Lex Frederick)[facility]01-17-2022 NoteHistory & Physical Reviewed: /Lactating: Are [...] the note. I personally evaluated the patient [id number] Electronic Signatures: Lex Frederick) (Signed 21-Sep-2021 11:50) Authored: Note Completion Co-Signer: History & Physical Reviewed, ERAS, Consent, Note Completion Jaya Mosquera (Resident)) (Signed 21-Sep-2021 02:51) Authored: History & Physical Reviewed, ERAS, Consent, Note Completion Last Updated: 21-Sep-2021 11:50 by Lex Frederick () References: 1. Data Referenced From MRI Safety Screen v2 19-Sep-2021 19:00[facility]01-[facility]20[facility] NoteRehab: Info: Mode of Treatmentoccupational therapy; attempted; OT evaluation initiated with home set-up obtained (1st floor set up/ 0 step entry, lives with , tub shower with chair); Pt with low BP upon arrival 79/54. Second BP reading taken at 71/51. RN notified, further evaluation deferred at this time. OT to reattempt when pt medically appropriate. 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 Exploration of spinal fusion 2. Reduction of L4/5 dislocation 2. L5-pelvis instrumented fusion with L4-pelvis posterolateral arthrodesis 4. Extension of prior T6-L4 instrumentation with multiple kwame construct and side connectors Anesthesia: Bryan Mroa Estimated Blood Loss: 700 Findings: good reduction [...] performed and the images transferred to the [employer] system for use in intraoperative image-guided computer-assisted [...] using the torque dri (more content not included)...[facility]01-14-2022 NoteThis report has been cancelled.[facility]01-14-2022 NoteHistory & Physical Reviewed: /Lactating: Are [...] the note. I personally evaluated the patient [id number] Electronic Signatures: Fidel Maciel (Resident)) (Signed 17-Sep-2021 22:49) Authored: History & Physical Reviewed, ERAS, Consent, Note Completion Lex Frederick) (Signed 19-Sep-2021 10:17) Authored: Note Completion Co-Signer: History & Physical Reviewed, ERAS, Consent, Note Completion Last Updated: 19-Sep-2021 10:17 by Lex Frederick) References: 1. Data Referenced From MRI Safety Screen v2 17-Sep-2021 11:28[facility]01-11-2022 NoteReferral Information: Consult requested by (Attending [...] be able to m (more content not included)...[facility]01-11-2022 NoteHistory of Present Illness: /Lactating: Are [...] the note. I personally evaluated the patient [id number] Electronic Signatures: Fidel Maciel (Resident)) (Signed 15-Sep-2021 [...] Plan Last Updated: 16-Sep-2021 10:20 by Lex Frederick)[facility] History of Present illness Narrative* I just had the pleasure of seeing Mrs. Jesus villarreal in the Neurosurgery Spine Clinic at the [facility]. She is a very pleasant 46-year-old female, [...] the fact that the goal of the [facility] is to improve her overall functioning and [...] Ms. LEE care. * Lex Frederick MD, [facility], FAANS * Director - Minimally Invasive Spine Surgery * [facility] * Fork Lift Truck Operator of Neurological Surgery * [facility] [employer] * [place], [place] * Some of this note was completed using Web[employer] voice recognition technology and sometimes the software misinterprets words. This may include unintended errors with respect to translation of words, typographical errors or grammar errors which may not have been identified prior to finalization of the chart note. Please take this into account when reading this note. OQ-Sqmxptricwyp-Ckape Work Phone: 1(669) 544-388104-23-2021 Reason for referral (narrative)* Reason for Referral: Patient s/p posterior bilateral L1 transpedicular decompression, posterior T7-T8, T8-T9, T9-T10, T0-T11, T11-T12, T12-L1 hutton hernandez osteotomies, Posterior T5-L4 instrumentation and fusion on 12/26 [facility] Future Appointments Appointment Date:01/07/2022 11:00:00 AM Scheduled Provider: Location:[facility] Appointment Type:Urology CALL PAT FT Appointment Date:01/11/2022 08:00:00 AM Scheduled Provider: Location:[facility] Appointment Type:Urology FT Appointment Date:01/11/2022 09:00:00 AM Scheduled Provider: Location:[facility] Appointment Type:Urology FT [facility] evaluation + Plan [facility] Evaluation note* Neurological: pdllqou8cwx 5/5 except hg/io4+ble 5/5incision cdiHead/Neck: Ox3, awake, alertBUE 5 prox, HG/IO4+BLE HF/KE/DF/PF/EHL 5 [facility]* Constitutional: in no acute distressSkin: Well perfusedEyes: OU 3RHead/Neck: atraumatic, normocephal icRespiratory/Thorax: airway intact, good chest expansionCardiovascular: normal rate, regular rhythmGastrointestinal: non-tenderNeurological: NAD, A&Ku7Pqsybso Nerves II-XII: PERRL, EOMI, Face symmetric, Facial SILT, Palate/Tongue midline and symmetric, shoulder shrugs symmetric, hearing intact to finger rubs bilaterallyMotor: RUE D5, B5, T5, HG5, IO5LUE D5, B5, T5, HG5, IO5RLE HF 4+, KE4+, PF4-, DF3LLE HF 4+, KE4+, PF3, DF4-Sensation: SILT throughout all extremitiesPsychological: mood appropriate [facility]* Diagnosis Chronic low back pain, unspecified back pain laterality, unspecified whether sciatica present- Primary Nausea in adult documented in this [facility] Narrative No data available for this section [facility] Discharge instructions* Activity:activity as tolerated. May [...] Certification:Home Care Services Needed: yesSkilled Disciplines Ordered: RN/STOCK SHAPER, PT, OTFace to Face Encounter Completed: yesDate of Encounter: [id number] Necessity for Homecare (based on clinical findings): [...] washing dishes, & loading the dryer or mortgage broker until cleared by MD. * Wound Care:Inspect [...] legs and/or calves. * Follow-Up - Neurosurgeon:Physician/Dept/Service: Neurosurgeon, Dr Josephuled Date/Time: 08-Jan-2021 10:40Location: [facility], [facility] [address] [place], [place]Phone Number: [phone]: 2 week postop/wound check visit; Bring Insurance Card and Photo ID [facility] instructions No data available for this section [facility] progress note No data available for this section [facility] reason for referral (narrative) , urinary incontinence, neurogenic bladder, open bladder neck, possible SP tube placement Referred by: Zachery HARKINS, Danya Rhodes [facility] Summary Purpose Family History No Family [...] section and content) DATE CREATED AUTHOR 06/20/2019 [facility] DATE CREATED AUTHOR AUTHOR'S ORGANIZ ATION 06/20/2019 [facility] DATE CREATED AUTHOR AUTHOR'S ORGANIZ ATION 07/26/2019 [facility] DATE CREATED AUTHOR AUTHOR'S ORGANIZ ATION 12/29/2020 [facility] DATE CREATED AUTHOR AUTHOR'S ORGANIZ ATION 09/16/2021 [facility] DATE CREATED AUTHOR AUTHOR'S ORGANIZ ATION 11/25/[address] [facility] DATE CREATED AUTHOR AUTHOR'S ORGANIZ ATION 12/10/2021 [facility] DATE CREATED AUTHOR AUTHOR'S ORGANIZ ATION 08/06/2022 [facility] DATE CREATED AUTHOR AUTHOR'S ORGANIZ ATION 01/17/2023 [facility] DATE CREATED AUTHOR AUTHOR'S ORGANIZ ATION 06/09/2023 [facility] DATE CREATED AUTHOR AUTHOR'S ORGANIZ ATION 12/29/2023 [facility] <item><item> Privacy Markings (unrecogniz ed [...] Care Team (unrecognized sect ion and content) Outside Sales Consultant Relationship Specialty Start Date End Date Shaikh [...] BE BASED ON THE PRIMARY CLINICAL RECORDS. [employer] [facility]. provides no warranty or guarantee of the accuracy or completeness of information in this document.
[2024-03-29 08:55] LABS: Bilirubin Urine NEGATIVE (NEGATIVE); Blood Urine MODERATE (NEGATIVE); Clarity Urine CLEAR (CLEAR); Color Urine LT. YELLOW (YELLOW); Glucose Urine UA NEGATIVE (NEGATIVE); Ketones Urine NEGATIVE (NEGATIVE); Leukocyte Esterase Urine MODERATE (NEGATIVE); Nitrite Urine POSITIVE (NEGATIVE); Protein Urine TRACE mg/dL (NEG/TRACE); Specific Gravity Urine 1.025 (1.005-1.025)
[2024-03-29 09:05] LABS: Urine Microscopic Indicated YES
[2024-03-29 09:28] LABS: Bacteria Urine LARGE #/HPF (NONE SEEN); Cast Seen? NONE SEEN #/LPF (NONE SEEN); Crystals Seen? None Seen #/HPF (None Seen); Mucus Urine TRACE (NONE SEEN); Squamous Epithelial Cell Urine MANY #/LPF (NONE/RARE); Urine Culture Indicated YES; WBC Urine 75-100 #/HPF (NONE SEEN)
--- NOTE | 2024-03-29 09:28 | ED_ITS ---
HPI - Female Genitourinary General Chief complaint: Urogenital-Female Stated complaint: CATHETER FELL OUT Time Seen by Provider: 03/29/24 09:13 Source: patient Mode of arrival: walk-in Limitations: no limitations History of Present Illness HPI Narrative: This patient here for Alvares catheter replacement. This is an ongoing problem typically she comes in between once every month and every 3 months. She is now seeing a urologist from [facility] in [place]. She is requesting an antifungal. When we review her charts she usually has a different organism many times with many resistances to antibiotics. On her last visit in December she used fosfomycin so we will start with that. She has not had fever shakes or chills or any other symptoms. Related Data Home Medications ?Medication ?Instructions ?Recorded ?Confirmed buprenorphine 8 mg-naloxone 2 mg 2.5 film sublingual Q24H 03/01/23 03/30/23 sublingual film bupropion HCl 150 mg 24 hr tablet, 150 mg PO DAILY 03/01/23 03/30/23 extended release cyclobenzaprine 10 mg tablet 10 mg PO Q8H 03/01/23 03/01/23 diazepam 5 mg tablet 5 mg PO Q8H PRN anxiety 03/30/23 03/30/23 furosemide 40 mg tablet 40 mg PO DAILY 03/30/23 03/30/23 gabapentin 800 mg tablet 800 mg PO TID 03/30/23 03/30/23 oxybutynin chloride 15 mg 15 mg PO DAILY 03/30/23 03/30/23 tablet,extended release 24 hr potassium bicarbonate-citric acid 20 meq PO BID 03/30/23 03/30/23 20 mEq effervescent tablet (Effer-K) promethazine 12.5 mg tablet 12.5 mg PO TID PRN nausea and 03/30/23 03/30/23 vomiting tizanidine 4 mg tablet 4 mg PO Q8H PRN muscle spasticity 03/30/23 03/30/23 zolpidem 12.5 mg tablet,extended 12.5 mg PO DAILY 03/30/23 03/30/23 release,multiphase Previous Rx's ?Medication ?Instructions ?Recorded ondansetron 4 mg disintegrating 4 mg PO Q4H PRN nausea and 11/21/23 tablet vomiting 3 days #6 tabs promethazine 25 mg tablet 25 mg PO BID PRN nausea and 11/21/23 vomiting #7 tabs Allergies Allergy/AdvReac Type Severity Reaction Status Date / Time codeine Allergy Severe rash Verified 03/29/24 08:19 Penicillins Allergy Severe Anaphylaxis Verified 03/29/24 08:19 quetiapine [From Seroquel] Allergy Severe Seizure Verified 03/29/24 08:19 PFSH PFS Social History Smoking status: Current every day smoker Exam Narrative Exam Narrative: Awake alert vital signs able she has no new complaints. She is not tachycardic or hypertensive.. She is awake alert oriented no evidence of confusion or altered mental status. Her skin is warm and dry mucous memories are moist and pink. Constitutional Vital Signs, click to edit/add: Last Vital Signs Temp 97.9 F 03/29/24 08:19 Pulse 86 03/29/24 08:19 Resp 20 03/29/24 08:19 BP 131/79 03/29/24 08:19 Pulse Ox 97 03/29/24 08:19 O2 Del Method Room Air 03/29/24 08:19 Course Vital Signs Vital signs: Vital Signs Temperature 97.9 F 03/29/24 08:19 Pulse Rate 86 03/29/24 08:19 Respiratory Rate 20 03/29/24 08:19 Blood Pressure 131/79 03/29/24 08:19 Pulse Oximetry 97 03/29/24 08:19 Oxygen Delivery Method Room Air 03/29/24 08:19 Temperature 97.9 F 03/29/24 08:19 Pulse Rate 86 03/29/24 08:19 Respiratory Rate 20 03/29/24 08:19 Blood Pressure 131/79 03/29/24 08:19 Pulse Oximetry 97 03/29/24 08:19 Oxygen Delivery Method Room Air 03/29/24 08:19 MDM - Female Genitourinary MDM Narrative Medical decision making narrative: Patient's Alvares catheter was easily replaced with a similar 18-gauge Alvares catheter by the nursing staff. A urinalysis was done and is consistent with another infectious process. We will start her on the same antibiotic, fosfomycin, that she was used the last time. She was urged to call us in 48 hours for final culture results. She will also be given a dose of Diflucan. She is to take plenty of extra fluids Lab Data Labs: Lab Results 03/29/24 Range/Units 08:45 Urine Color Lt. yellow (YELLOW) Urine Clarity Clear (CLEAR) Urine pH 6.0 (5.0-9.0) Ur Specific [place] 1.025 (1.005-1.025) Urine Protein Trace (NEG/TRACE) mg/dL Urine Glucose (UA) Negative (NEGATIVE) mg/dL Urine Ketones Negative (NEGATIVE) mg/dL Urine Occult Blood Moderate A (NEGATIVE) Urine Nitrite Positive A (NEGATIVE) Urine Bilirubin Negative (NEGATIVE) Urine Urobilinogen 1.0 (0.2-1.0) EU/dL Ur Leukocyte Esterase Moderate A (NEGATIVE) Discharge Plan Discharge Stand Alone Forms: Portal Instructions Chief Complaint: Urogenital-Female Clinical Impression: Urinary catheter (Alvares) change required Patient Disposition: Home, Self-Care Time of Disposition Decision: 09:34 Prescriptions / Home Meds: No Action diazepam 5 mg tablet 5 mg PO Q8H PRN (Reason: anxiety) furosemide 40 mg tablet 40 mg PO DAILY gabapentin 800 mg tablet 800 mg PO TID oxybutynin chloride 15 mg tablet extended release 24hr 15 mg PO DAILY Effer-K 20 mEq tablet, effervescent 20 meq PO BID promethazine 12.5 mg tablet 12.5 mg PO TID PRN (Reason: nausea and vomiting) tizanidine 4 mg tablet 4 mg PO Q8H PRN (Reason: muscle spasticity) zolpidem 12.5 mg tablet,ext release multiphase 12.5 mg PO DAILY Rx Instructions: HS bupropion HCl 150 mg tablet extended release 24 hr 150 mg PO DAILY buprenorphine-naloxone 8-2 mg film 2.5 film sublingual Q24H cyclobenzaprine 10 mg tablet 10 mg PO Q8H promethazine 25 mg tablet 25 mg PO BID PRN (Reason: nausea and vomiting) Qty: 7 0RF ondansetron 4 mg tablet,disintegrating 4 mg PO Q4H PRN (Reason: nausea and vomiting) 3 Days Qty: 6 0RF Print Language: Luxembourgish Additional Instructions: Diflucan/fosfomycin Referrals: Shaikh Obrien MD [Primary Care Provider] - 1 week
== END 2024-03-29 09:59 | disposition home or self-care (01) ==
PROVIDERS: Emergency Provider Emergency Medicine Emergency Medical Services; PCP Internal Medicine
DX: Z46.6 Encounter for fitting and adjustment of urinary device (principal); F17.200 Nicotine dependence, unspecified, uncomplicated; R82.998 Other abnormal findings in urine
CPT/HCPCS: 51702; 81001; 87086; 87150; 87186; 99284

== ENCOUNTER 2024-05-04 15:01 | Emergency (ER) | payer BC, SELFPAY ==
[2024-05-04 15:06] VITALS: BP 135/78; PULSE 98; TEMP 36.8; O2SAT 98; BMI 37.4
--- NOTE | 2024-05-04 15:26 | PC.NURSE ---
pt states 2 days ago catheter fell out when coughing. pt c/o cough for 2-3 days.
--- NOTE | 2024-05-04 15:29 | XR_ITS ---
The [address] [address] Patient Name: MORALES LEE MRN: [id number] date: 1975 Sex: F Assigned Patient Location: ER Current Patient Location: ER Accession/Order Number: [id number] Exam Date: 05/04/2024 15:54 Report Date: 05/04/2024 16:21 At the request of: KYRA SILVA Procedure: XR chest 1V EXAM: XR chest 1V HISTORY: cough COMPARISON: 04/20/2019. TECHNIQUE: AP upright chest x-ray. FINDINGS: Visualized lungs clear without infiltrate or edema. Heart size prominent slightly increased from previous. Mediastinal contour stable. No pleural effusion or pneumothorax. Elevated right diaphragm again noted. Right lung base clear Hardware lower cervical upper thoracic spine unchanged. Thoracolumbar hardware partially imaged. No acute appearing bony abnormality. XR/XR chest 1V IMPRESSION: No acute findings. Lungs clear. Electronically authenticated by: CANDICE PARADA Date: 05/04/2024 16:21
--- NOTE | 2024-05-04 15:51 | US_ITS ---
The [address] [address] Patient Name: MORALES LEE MRN: [id number] date: 1975 Sex: F Assigned Patient Location: ER Current Patient Location: Accession/Order Number: [id number] Exam Date: 05/04/2024 16:25 Report Date: 05/04/2024 18:03 At the request of: KYRA SILVA Procedure: US venous doppler LE BI EXAM: US venous doppler LE BI HISTORY: pain and swelling clinical suspicion of DVT right and left leg. COMPARISON: Bilateral leg venous ultrasound 10/07/2020. CT abdomen pelvis 05/07/2022. TECHNIQUE: Duplex compression venous ultrasound right and left leg veins groin to proximal calf including deep veins and saphenous vein at the groin. FINDINGS: Right leg: Deep veins visualized proximal calf with normal color flow and augmentation. Veins are compressible without thrombus or occlusion. Saphenous vein at the groin patent. No abnormal fluid collection behind the knee. Lymph node in the right groin 3.2 cm L by 0.8 cm AP. Normal cortical thickness. Increased from previous CT images. Left leg: Visualized deep veins are compressible with normal color flow and augmentation. No thrombus or occlusion. Saphenous vein at the groin patent. Limited visualization of the calf veins due to edema but no definite thrombus. Left groin lymph nodes or largest 1.9 cm L by 1.1 cm AP diameter. US/US venous doppler LE BI IMPRESSION: 1. Negative for DVT right or left leg. No saphenous thrombus right or left groin 2. Bilateral inguinal lymph nodes as noted above. Appear slightly more prominent than earlier CT. Electronically authenticated by: CANDICE PARADA Date: 05/04/2024 18:03
--- NOTE | 2024-05-04 15:53 | ED.FEMALEGU1 ---
HPI - Female Genitourinary General Chief complaint: Urogenital-Female Stated complaint: cathterer problems Time Seen by Provider: 05/04/24 15:05 Source: patient Mode of arrival: Wheelchair Limitations: no limitations History of Present Illness HPI Narrative: The patient is a 48 years old female with history of multiple presentation to the ER for Alvares catheter management and care, patient presenting to us with a cough that been going on at least for the last 3 to 4 days associated with phlegm, patient mentioned that the catheter that she had placed chronically has fell down while she is coughing, apparently the patient had bilateral leg weakness after she had a back surgery. It was noted that the patient providing history most of the time while she is closing her eyes she does not do any eye contact and she is just looking to the other side not to me directly. The patient was complaining initially about not having enough care at home because her aphttldj-kb-wks is not helping her and apparently her stopped the home health care nurse from coming, patient also was complaining of bilateral leg ulcer in addition to bilateral leg pain and swelling The patient is not a good historian she keeps changing her leg swelling history from recently swelling to chronically swollen, but on examination the patient seems to have chronic skin changes to the lower extremity Related Data Home Medications ?Medication ?Instructions ?Recorded ?Confirmed buprenorphine 8 mg-naloxone 2 mg 2.5 film sublingual Q24H 03/01/23 05/06/24 sublingual film cyclobenzaprine 10 mg tablet 10 mg PO Q8H 03/01/23 05/06/24 diazepam 5 mg tablet 5 mg PO Q8H PRN anxiety 03/30/23 05/06/24 furosemide 40 mg tablet 40 mg PO DAILY 03/30/23 05/06/24 gabapentin 800 mg tablet 800 mg PO TID 03/30/23 05/06/24 oxybutynin chloride 15 mg 15 mg PO DAILY 03/30/23 05/06/24 tablet,extended release 24 hr potassium bicarbonate-citric acid 20 meq PO BID 03/30/23 05/06/24 20 mEq effervescent tablet (Effer-K) tizanidine 4 mg tablet 4 mg PO Q8H PRN muscle spasticity 03/30/23 05/06/24 zolpidem 12.5 mg tablet,extended 12.5 mg PO DAILY 03/30/23 05/06/24 release,multiphase fluoxetine 10 mg capsule 10 mg PO DAILY 05/06/24 05/06/24 Previous Rx's ?Medication ?Instructions ?Recorded ondansetron 4 mg disintegrating 4 mg PO Q8H PRN nausea and 05/07/24 tablet vomiting 0 days #30 tabs Allergies Allergy/AdvReac Type Severity Reaction Status Date / Time codeine Allergy Severe rash Verified 05/06/24 20:33 Penicillins Allergy Severe Anaphylaxis Verified 05/06/24 20:33 quetiapine [From Seroquel] Allergy Severe Seizure Verified 05/06/24 20:33 Review of Systems ROS Status of ROS 10 or more systems reviewed and unremarkable except as noted in history and below [facility] Social History Smoking status: Current every day smoker Exam Narrative Exam Narrative: It was noted that the patient is disheveled and there is apparently not enough care provided to the patient as the patient have her as well as the skin shows chronic changes due to lack of cleaning The patient have bilateral chronic skin changes to the lower extremities and lymphedema like picture there is no acute changes of redness hotness or any cellulitic changes And there is chronic edema bilaterally until the level of the knee Nurses notes and vital signs reviewed and patient is not hypoxic. General: Well-appearing and in no apparent distress. Skin: Skin dry with obvious unfortunate lack of hygiene on the posterior neck as well as anteriorly No rash. Head: Normocephalic, atraumatic. Neck: Supple, non-tender. Eye: Pupils are equal, round and EOMI. No scleral icterus. Ears, Nose, Mouth, and Throat: TM are clear, no nasal mucosal hypertrophy. The patient have bad oral hygiene with multiple tooth decayed including the 8 and 9 Cardiovascular: Regular Rate and Rhythm without murmur, gallop or rub. Respiratory: No accessory muscle use or respiratory distress. Lungs are clear to auscultation, no wheezing, rales or rhonchi Chest Wall: no tenderness Back: No midline thoracic or lumbar vertebral tenderness. No CVA tenderness GI: Abdomen is soft, non-distended. Normal bowel sounds. No masses appreciated. No tenderness to palpation. No rebound, guarding, or rigidity noted. On the posterior aspect of the buttock area the patient have 2 ulcers that are at least 10 x 12 cm stage II ulcers with obvious redness and tenderness they both in the lower buttock area bilaterally Bilateral lower extremity shows anterior tibial pulse adequate but the patient have chronic skin changes and dryness of both legs with chronic edema Constitutional Vital Signs, click to edit/add: Last Vital Signs Temp 98.2 F 05/04/24 15:06 Pulse 98 H 05/04/24 15:06 Resp 20 05/04/24 15:06 BP 135/78 05/04/24 15:06 Pulse Ox 98 05/04/24 15:06 O2 Del Method Room Air 05/04/24 15:06 Course Vital Signs Vital signs: Vital Signs Temperature 98.2 F 05/04/24 15:06 Pulse Rate 98 H 05/04/24 15:06 Respiratory Rate 20 05/04/24 15:06 Blood Pressure 135/78 05/04/24 15:06 Pulse Oximetry 98 05/04/24 15:06 Oxygen Delivery Method Room Air 05/04/24 15:06 Temperature 98.2 F 05/04/24 15:06 Pulse Rate 98 H 05/04/24 15:06 Respiratory Rate 20 05/04/24 15:06 Blood Pressure 135/78 05/04/24 15:06 Pulse Oximetry 98 05/04/24 15:06 Oxygen Delivery Method Room Air 05/04/24 15:06 MDM - Female Genitourinary MDM Narrative Medical decision making narrative: Upon arrival the patient needed help to get into the bed she was able to move her back And lay down but she was not able to ambulate Upon arrival it did seem that the patient does not have enough care at home and although her catheter was not in place she did had a depends on that has urine leaking The patient had a Alvares catheter placed upon arrival due to the fact that she have a chronic catheter and according to her she has not been urinating adequately The patient had a also chest x-ray ordered It was noted that initially I was talking to the patient about her care at home and she was complaining about the fact that her chhavtqy-kf-pce is not taking care of her and they do not have any home health care nurse coming because her stopped those from coming because her [id number] is an [employer] and she can help When I asked the patient if she would need further help especially that it is obvious with the fact that she had bilateral buttock ulcer and the fact that her clinical presentation shows lack of care at home , with the urine leaking on her cloth ,I asked the patient if she would need rehab or home health care if needed to be reestablished The patient although most of the history is provided as well as the clinical exam with the patient closing her eyes and just talking to me while looking in the other direction, patient started saying that she is offended because patient is saying that (you said my cloth mismatch ) , although that was not mentioned that anytime I tried explained to the patient that she misunderstood and that was I never said that and all I want is to help her to see if she needs more health care at home which is obvious on exam The patient kept repeating that she just want to go home and she did not wait for the results of the duplex of the lower extremity and she also refused a blood workup I explained to the patient that she does have infection in her lower extremity mostly the buttock area and I would need a blood workup to make sure the significance of the infection But the patient kept refusing and she decided just to leave AMA knowing that she is putting her life at risk by leaving and missing a possible infection diagnosis as well as possible DVT Discharge Plan Discharge Stand Alone Forms: Portal Instructions Chief Complaint: Urogenital-Female Clinical Impression: Urinary catheter (Alvares) change required, Decubital ulcer, Bronchitis, Swollen leg Patient Disposition: Left Against Medical Advice Time of Disposition Decision: 17:33 Condition: Good Prescriptions / Home Meds: No Action diazepam 5 mg tablet 5 mg PO Q8H PRN (Reason: anxiety) furosemide 40 mg tablet 40 mg PO DAILY gabapentin 800 mg tablet 800 mg PO TID oxybutynin chloride 15 mg tablet extended release 24hr 15 mg PO DAILY Effer-K 20 mEq tablet, effervescent 20 meq PO BID tizanidine 4 mg tablet 4 mg PO Q8H PRN (Reason: muscle spasticity) zolpidem 12.5 mg tablet,ext release multiphase 12.5 mg PO DAILY Rx Instructions: HS fluoxetine 10 mg capsule 10 mg PO DAILY ondansetron 4 mg tablet,disintegrating 4 mg PO Q8H PRN (Reason: nausea and vomiting) Qty: 30 0RF buprenorphine-naloxone 8-2 mg film 2.5 film sublingual Q24H cyclobenzaprine 10 mg tablet 10 mg PO Q8H Print Language: Frisian Instructions: Acute Bronchitis (ED), Pressure Injury (ED) Referrals: Shaikh Obrien MD [Primary Care Provider] - 1 week Discharge Date/Time: 05/04/24 18:03
== END 2024-05-04 18:03 | disposition left against medical advice (07) ==
PROVIDERS: Emergency Provider Emergency Medicine; PCP Internal Medicine
DX: M79.89 Other specified soft tissue disorders (principal); J40 Bronchitis, not specified as acute or chronic; Z53.29 Procedure and treatment not carried out because of patient's decision for other reasons; Z96.0 Presence of urogenital implants; F17.200 Nicotine dependence, unspecified, uncomplicated; L89.322 Pressure ulcer of left buttock, stage 2; L89.312 Pressure ulcer of right buttock, stage 2; M79.605 Pain in left leg; M79.604 Pain in right leg
CPT/HCPCS: 51702; 71045; 80053; 93970; 99284

== ENCOUNTER 2024-05-06 20:31 | Emergency (ER) | payer BC, SELFPAY ==
[2024-05-06 20:34] VITALS: BP 144/88; PULSE 82; TEMP 36.7; O2SAT 93; BMI 36.8
--- OUTSIDE RECORDS SUMMARY | 2024-05-06 20:39 | XMS_ITS | CCD ---
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 LEX HICKMAN Admitting Unava ilable OTONIEL, Dr. LEX HICKMAN Attending Unava ilable Patient, Unavailable Referring Unavailable Dr. Yony Aguirre Attending Unavailable FAWWAD, MENDOSA H Primary Care Unavailable PÉREZ PATINO Attending Unavailable PÉREZ PATINO Admitting Unavailable JON, DR ABHINAV Livingston Attending Unavailabl e FAKERRI, MENDOSA H Primary Care Unavailable JON, DR ABHINAV Livingston Admitting Unavailabl e JON, DR ABHINAV Livingston Consulting Unavailabl jacque HUTTON, DR CLIF Santana Admitting Unavailable URIAH, DR CLIF Santana Consulting Unavailable FAWWAD, MENDOSA H Primary Care Unavailable URIAH, DR CLIF Santana Attending Unavailable IVON AMARO Admitting Unavailable IVON AMARO Consulting Unavailable FAWWAD, MENDOSA H Primary Care Unavailable IVON AMARO Attending Unavailable EMMANUEL, LALI Admitting Unavailable EMMANUEL, LALI Consulting Unavailable FAWWAD, MENDOSA H Primary Care Unavailable EMMANUEL, LALI Attending Unavailable FAWWAD, MENDOSA H Primary Care Unavailable LUE ., DANYA M Admitting Unavailable LUE ., DANYA M Attending Unavailable FAWWAD, MENDOSA H [...] VETO ., IVON Attending Unavailable [facility] Primary Care Unavailable PATRICKDEBORAH SHRAIF Consulting Unavailable [facility] Primary Care Unavailable REINECK, DR ABHINAV Livingston Admitting Unavailabl e REINECK, DR ABHINAV Livingston Consulting Unavailabl e REINECK, DR ABHINAV Livingston Attending Unavailabl e HAY ., DR LOW Admitting Unavailable [facility] Primary Care Unavailable HAY ., DR LOW Attending Unavailable ZIEBER, DR ENRIQUE Santana Consulting Unavailable HAY ., DR LOW Consulting Unavailable LUE ., DANYA Aponte Admitting Unavailable LUE ., DANYA Aponte Attending Unavailable PAVMANE, DENTON Primary Care Unavailable [facility] Primary Care Unavailable LUE ., DANYA M Admitting Unavailable LUE ., DANYA M Consulting Unavailable LUE ., DANYA Aponte Attending Unavailable CANDICE MATTA Consulting Unava RACHEL Oconnor Consulting Unavailable DIAB ., KYRA Admitting Unavailable [facility] Primary Care Unavailable DIAB ., KYRA Attending Unavailable GRECHNY ., BONITA HULL Consulting Unavailabl e [facility] Primary Care Unavailable LUE ., DANYA M Admitting Unavailable LUE ., DANYA M Consulting Unavailable LUE ., DANYA Aponte Attending Unavailable PAY ., DR RODRIGUEZ Admitting Unavailable PAY ., DR RODRIGUEZ Consulting Unavailable [facility] Primary Care Unavailable PAY ., DR RODRIGUEZ Attending Unavailable [facility] Primary Care Unavailable REINECK, DR ABHINAV Livingston Admitting Unavailabl e REINECK, DR ABHINAV Livingston Consulting Unavailabl e REINECK, DR ABHINAV Livingston Attending Unavailabl KORIN Mccarthy Consulting Unavailable Dr. Lex Frederick Attending Kiana Obrien MD [facility] Primary Care Provider [phone] [facility] Primary [facility] Unavailable SisieDanya. Attending Unavailable Allergies Allergy Classification Reported Allergen(s) Allergy Type Date of Onset Reaction(s) Facility Opioid Agonists (1 source) Codeine Drug Allergy Unknown [facility] Penicillins (antibiotic) (1 source) Penicillin Drug Allergy Unknown [facility] QUEtiapine (1 source) QUEtiapine Drug Allergy Unknown [facility] (20 sources) Codeine; Translations: [Codeine] Drug Allergy 3 Hives [facility] Work Phone: (20 sources) Penicillins; Translations: [Penicillins] Allergy to drug (finding) Hives, Unknown [facility] Work Phone: (10 sources) Promethazine; Translations: [promethazine] Drug Allergy [facility] (1 source) QUEtiapine Drug Allergy Seizures [facility] (2 sources) Codeine Drug Allergy 3 [facility] (3 sources) gabapentin; Translations: [Neurontin] Drug Allergy [facility] (1 source) Levamisole Drug Allergy [facility] (1 source) Morphine Drug Allergy 0 [facility] (2 sources) Penicillins Drug allergy (disorder) 3 [facility] (1 source) QUEtiapine Drug Allergy 3 [facility] (1 source) Penicillins Drug [...] 2 cap(s), Refills(s) 0, [facility]: [id number], 156, cm, 07/16/22 10:58:00 EST, Height/Length Dosing, [...] day(s), # 2 tab(s), Refills(s) 0, [facility]: [facility] [facility], 156, cm, 01/06/22 10:53:00 EDT, Height/Length Dosing, 78, kg, 01/06/22 10:53:00 EDT... Start Date: 01/06/22 Stop Date: 01/08/22 Status: Ordered diazePAM 5 mg oral tablet (20 sources) Benzodiazepine Start: 09-30-2021 End: 12-09-2023 take 1 tablet by mouth [...] 90 tablet 1 10/10/2023 12/09/2023 Active Start: 10-28-2020 Valium 10 MG O ral [...] contipation Quantity: 30 Refills: 0 Ordered: 01-Jan-2021 IzaguirreAmbrocio sanchez Start: 01-Jan-2021 Generic Substitution Allowed Comments: Medication [...] Start: 09-30-2021 take 1 capsule by mo uth once daily DULoxetine 30 mg oral delayed [...] Mcdaniel Generic Substitution Allowed Geritol oral tablet (9 sources) Start: 10-30-2011 Geritol oral tablet 1 tab(s), Oral, Daily, 90 tab(s), Refill(s) 0 Start Date: 10/30/11 Status: Ordered hydroCHLOROthiazide 12.5 mg oral tablet (9 sources) Thiazide Diuretic Start: 01-05-2016 take 12.5 [...] mirabegron 50 mg extended release oral tablet (6 sources) beta3-Adrenergic Agonist Start: 02-25-2022 take 1 tablet by mouth once daily mirabegron 50 mg oral tablet, extended release 50 mg = 1 tab(s), Oral, Daily, # 30 tab(s), Refills(s) 3, Pharmacy: [address], 156, cm, 02/04/22 15:47:00 EDT, Height/Length Dosing, 78, kg, 02/04/22 15:47:00 EDT, Weight Dosing Start Date: 02/25/22 Status: Ordered nystatin 100 unt/mg topical powder (1 source) Polyene Antifungal Start: 03-07-2023 Nyamyc [id number] UNIT/GM powder Apply 1 application topically in the morning and 1 application in the evening and 1 application before bedtime. To affected area. 0 03/07/2023 Active omeprazole 40 mg delayed release oral capsule (6 sources) Proton Pump Inhibitor Start: 01-06-2022 take [...] chloride 10 mg extended release oral tablet (6 sources) Cholinergic Muscarinic Antagonist Start: 10-04-2022 take 1 tablet by mouth once daily oxybutynin 10 mg ER Tab 10 mg = 1 tab(s), Oral, Daily, # 30 tab(s), Refills(s) 11, [facility]acy: [facility] #[id number], 156, cm, 07/16/22 10:58:00 EST, Height/Length Dosing, 78, kg, 07/16/22 10:58:00 EST, Weight Dosing Start Date: 10/04/22 Status: Ordered Start: 07-16-2022 take 1 tablet by marlen th once daily oxybutynin 10 mg ER Tab 10 mg = 1 tab(s), Oral, Daily, # 30 tab(s), Refills(s) 11, Pharmacy: [facility] #[id number], 156, cm, 07/16/22 10:58:00 EST, Height/Length Dosing, 78, kg, 07/16/22 10:58:00 EST, Weight Dosing Start Date: 07/16/22 Status: Ordered Start: 03-10-2022 take 1 tablet by marlen once daily oxybutynin 10 mg ER Tab 10 mg = 1 tab(s), Oral, Daily, # 30 tab(s), Refills(s) 3, [facility]: [facility] [facility], 156, cm, 02/04/22 15:47:00 EDT, Height/Length Dosing, [...] 07-Jan-2021 Generic Substitution Allowed polyethylene glycol 3350 53954 mg powder for oral solution (2 sources) [...] spasms Quantity: 30 Refills: 0 Ordered: 02-Oct-2021 IzaguirreAmbrocio Start: 02-Oct-2021 Generic Substitution Allowed 24 hr tolterodine tartrate 4 mg extended release oral capsule (1 source) Cholinergic Muscarinic Antagonist Start: 01-28-2022 take 1 capsule by mouth once daily tolterodine 4 mg Cap-ER 4 mg = 1 cap(s), Oral, Daily, # 30 cap(s), Refills(s) 0, Pharmacy: [address], 156, cm, 01/07/22 13:43:00 EDT, Height/Length Dosing, 78, kg, 01/06/22 10:53:00 EDT, Weight Dosing Start Date: 01/28/22 Status: Ordered zolpidem tartrate 12.5 mg extended release oral tablet (20 sources) gamma-Aminobutyric Acid-ergic Agonist [...] DO Start : 28-Oct-2020 Active Start: 01-05-2016 End: 11-10-2023 take 1 tablet by mouth once daily at bedtime as needed for [...] mg / naloxone 2 mg sublingual film (19 sources) Partial Opioid Agonist, Opioid Antagonist Start: [...] 1 tablet by marlen three times daily Flexeril 10 mg Tab [...] / nitrofurantoin, monohydrate 75 mg oral capsule (3 sources) Nitrofuran Antibacterial Start: 11-26-2022 Macrobid 100 mg Cap 100 mg = 1 cap(s), Oral, As Directed, Take 1 tab by mouth after catheter change then take second tab 12 hours later. Take with food., # 2 cap(s), Refills(s) 0, Pharmacy: [facility] #[id number], 156, cm, 11/26/22 8:15:00 EDT, Height/Length Dosing, 78, kg, 11/26/22 8:15:00 EDT, Weight Dosing Start Date: 11/26/22 Status: Ordered ondansetron 4 mg oral tablet (13 sources) Serotonin-3 Receptor Antagonist Start: 10-28-2020 Zofran 4 MG TABS Quantity: 0 Refills: 0 Ordered: 28-Oct-2020 DO Start : 28-Oct-2020 Active Zofran 4 mg oral tablet ; 1 tab(s) oral Quantity: 0 Refills: 0 Ordered: 05-Dec-2020 Carole Mcdaniel Status: Discontinued Generic Substitution Allowed polyethylene glycol 3350 [id number] mg / potassium chloride 2970 mg / sodium bicarbonate 6740 mg / sodium chloride 5860 mg / sodium sulfate 89770 mg powder for oral solution (8 sources) [...] [Closed dislocation, lumbar vertebra] Episodic Mood disorders (10 sources) Depressive disorder; Translations: [Major depressive disorder, [...] Episodic Other aftercare (2 sources) Other terminal computer operator (current) drug therapy; Translations: [Other half-way (current) drug therapy] Onset: 06-07-2022 Episodic Other congenital anomalies (11 sources) Congenital anomaly of spine; 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, unspecified] Chronic Other connective tissue disease (7 sources) History of fusion of thoracic spine; Translations: [Arthrodesis status] Episodic Other connective tissue disease (7 sources) History of lumbar fusion; Translations: [Arthrodesis status] Episodic Other connective tissue disease (9 sources) 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 Other connective tissue [...] Episodic Other diseases of bladder and urethra (5 sources) 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 [...] Chronic Other nutritional; endocrine; and metabolic disorders (7 sources) Body mass index 30+ - obesity [...] influencing health status] Episodic Residual codes; unclassified (9 sources) Chronic back pain 01-05-2016 Episodic Residual [...] NOT SPECIFIED] Onset: 05-10-2022 Episodic Viral infection (9 sources) Genital herpes simplex 01-05-2016 Chronic Past [...] sources) compression fractures( Confirmed ) 10-27-2011 Unclassified (5 sources) compression fractures 10-27-2011 Results Test Name Value Interpretation Reference Range Facility Outside Recordson 12-28-2023 Outside Records [id number] Normal [facility] Physician Orderon 12-14-2023 Physician Order [id number] [facility] ED Note-Physicianon 03-14-20 ED Note-Physician [id number]#[id number]:127 Normal [facility] ED Note-Physicianon 01-23-20 ED Note-Physician [id number]#1.00CD:127 [facility] ED Note-Physician [id number]#[id number]:127 Normal [facility] Lab Reportson 01-22-2023 Lab Reports [id number]#[id number]:127 [facility] Patient Correspondenceon Patient Correspondence [id number]:127 [facility] CULTURE URINEon 01-16-2023 CULTURE URINE Isolate 1 [...] F Nitrofurantoin <=16 S F Normal [facility] Comment on above: Performed By: #### U MICRO, ERUR #### [facility] [address] [place] [address] Dr. Alfredo Lizama CBC AUTO DIFFon 01-13-2023 BASO # 0.1 103/ul Normal 0.0-0.1 [facility] Comment on above: Performed By: #### U MICRO, ERUR #### [facility] [address] [place] [address] Dr. Alfredo Lizama Basophils/100 WBC (Bld) 0.7 % Normal 0.2-2.0 [facility] Comment on above: Performed By: #### U MICRO, ERUR #### [facility] [address] [place] [address] Dr. Alfredo Lizama EO # 0.3 103/ul Normal 0.0-0.7 [facility] Comment on above: Performed By: #### U MICRO, ERUR #### [facility] [address] [place] [address] Dr. Alfredo Lizama Eosinophils/100 WBC (Bld) 3.2 % Normal 0.9-7.0 [facility] Comment on above: Performed By: #### U MICRO, ERUR #### [facility] [address] [place] [address] Dr. Alfredo Lizama Erythrocyte distribution width (RBC) [Ratio] 13.0 % Normal 11.0-15.0 [facility] Comment on above: Performed By: #### U MICRO, ERUR #### [facility] [address] [place] [address] Dr. Alfredo Lizama Hematocrit (Bld) [Volume fraction] 43.2 % Normal 36.0-48.0 [facility] Comment on above: Performed By: #### U MICRO, ERUR #### [facility] [address] [place] [address] Dr. Alfredo Lizama Hemoglobin (Bld) [Mass/Vol] 14.1 g/dL Normal 12.0-16.0 [facility] Comment on above: Performed By: #### U MICRO, ERUR #### [facility] [address] [place] [address] Dr. Alfredo Lizama IG # 0.02 10e3/ul Normal 0.00-0.03 [facility] Comment on above: Performed By: #### U MICRO, ERUR #### [facility] [address] [address] [address] Alfredo Lizama IG % 0.2 % Normal 0.0-0.5 [facility] Comment on above: Performed By: #### U MICRO, ERUR #### [facility] [address] [address] [address] Alfredo Lizama LYMPH # 3.0 103/ul Normal 1.2-3.8 [facility] Comment on above: Performed By: #### U MICRO, ERUR #### [facility] [address] [place] [address] Dr. Alfredo Lizama Lymphocytes/100 WBC (Bld) 35.6 % Normal 20.5-60.0 [facility] Comment on above: Performed By: #### U MICRO, ERUR #### [facility] [address] [place] [address] Dr. Alfredo Lizama MANUAL DIFF REQ NO Normal [facility] Comment on above: Performed By: #### U MICRO, ERUR #### [facility] [address] [place] [address] Dr. Alfredo Lizama MCH (RBC) [Entitic mass] 29.4 pg Normal 26.7-34.0 [facility] Comment on above: Performed By: #### U MICRO, ERUR #### [facility] [address] [place] [address] Dr. Alfredo Lizama MCHC (RBC) [Mass/Vol] 32.6 g/dL Normal 29.9-35.2 [facility] Comment on above: Performed By: #### U MICRO, ERUR #### [facility] [address] [address] [address] Alfredo Lizama MCV (RBC) [Entitic vol] 90.0 fL Normal 81.0-99.0 [facility] Comment on above: Performed By: #### U MICRO, ERUR #### [facility] [address] [place] [address] Dr. Alfredo Lizama MONO # 0.4 103/ul Normal 0.3-0.8 [facility] Comment on above: Performed By: #### U MICRO, ERUR #### [facility] [address] [place] [address] Dr. Alfredo Lizama Monocytes/100 WBC (Bld) 4.8 % Normal 1.7-12.0 [facility] Comment on above: Performed By: #### U MICRO, ERUR #### [facility] [address] [place] [address] Dr. Alfredo Lizama NEUT # 4.7 103/ul Normal 1.4-6.5 [facility] Comment on above: Performed By: #### U MICRO, ERUR #### [facility] [address] [place] [address] Dr. Alfredo Lizama Neutrophils/100 WBC (Bld) 55.5 % Normal 43.0-75.0 [facility] Comment on above: Performed By: #### U MICRO, ERUR #### [facility] [address] [place] [address] Dr. Alfredo Lizama Platelet mean volume (Bld) [Entitic vol] 9.5 fL Normal 9.5-13.5 [facility] Comment on above: Performed By: #### U MICRO, ERUR #### [facility] [address] [place] [address] Dr. Alfredo Lizama PLT 267 103/ul Normal 150-450 [facility] Comment on above: Performed By: #### U MICRO, ERUR #### [facility] [address] [place] [address] Dr. Alfredo Lizama RBC 4.80 106/ul Normal 4.20-5.40 [facility] Comment on above: Performed By: #### U MICRO, ERUR #### [facility] [address] [place] [address] Dr. Alfredo Lizama WBC 8.5 103/ul Normal 4.0-11.0 [facility] Comment on above: Performed By: #### U MICRO, ERUR #### [facility] [address] [place] [address] Dr. Alfredo Lizama ER URINE PROFILEon 3 Bilirubin Ql (U) Negative Normal NEGATIVE [facility] Comment on above: Performed By: #### E RUR, UMICRO #### [facility] [address] [place] [address] Dr. Alfredo Lizama Clarity (U) CLOUDY Abnormal CLEAR [facility] Comment on above: Performed By: #### CHINMAY CHAVESRO #### [facility] [address] [place] [address] Dr. Alfredo Lizama Color (U) YELLOW Normal YELLOW [facility] Comment on above: Performed By: #### CHINMAY CHAVESRO #### [facility] [address] [place] [address] Dr. Alfredo Lizama ERUAHD A micrscopic examina tion will be performed if indicated. Normal [facility] Comment on above: Performed By: #### CHINMAY CHAVESRO #### [facility] [address] [place] [address] Dr. Alfredo Lizama Glucose Ql (U) Negative Normal NEGATIVE [facility] Comment on above: Performed By: #### CHINMAY CHAVESRO #### [facility] [address] [place] [address] Dr. lAfredo Lizama Hemoglobin Ql (U) MODERATE Abnormal NEGATIVE [facility] Comment on above: Performed By: #### CHINMAY CHAVESRO #### [facility] [address] [place] [address] Dr. Alfredo Lizama Ketones Ql (U) TRACE Abnormal NEGATIVE [facility] Comment on above: Performed By: #### CHINMAY CHAVESRO #### [facility] [address] [place] [address] Dr. Alfredo Lizama LEUKOCYTES SMALL Abnormal NEGATIVE [facility] Comment on above: Performed By: #### CHINMAY CHAVESRO #### [facility] [address] [place] [address] Dr. Alfredo Lizama Nitrite Ql (U) Negative Normal NEGATIVE [facility] Comment on above: Performed By: #### CHINMAY CHAVESRO #### [facility] [address] [place] [address] Dr. Alfredo Lizama pH (U) 8.0 [pH] Normal 5-9 [facility] Comment on above: Performed By: #### E SEAN UMICRO #### [facility] [address] [place] [address] Dr. Alfredo Lizama Protein (U) [Mass/Vol] 100 mg/dL Abnormal NEGATIVE/ TRACE [facility] Comment on above: Performed By: #### E RUEsther, UMICRO #### [facility] [address] [place] [address] Dr. Alfredo Lizama SPEC GRAVITY 1.015 Normal 1.005-<=1.0 25 [facility] Comment on above: Performed By: #### E SEAN UMICRO #### [facility] [address] [place] [address] Dr. Alfredo Lizama UR MICRO IND INDICATED Normal [facility] Comment on above: Performed By: #### E SEAN UMICRO #### [facility] [address] [place] [address] Dr. Alfredo Lizama Urobilinogen Qn (U) 1.0 {Tesha'U}/dL Normal 0.2 - 1. 0 [facility] Comment on above: Performed By: #### Jacque ESTRADA UMICRO #### [facility] [address] [place] [address] Dr. Alfredo Lizama PROF CHEM 8 (BAS METB)on Anion gap [Moles/Vol] 8.4 mmol/L Normal [facility] Comment on above: Performed By: #### U MICRO, ERUR #### [facility] [address] [place] [address] Dr. Alfredo Lizama Calcium [Mass/Vol] 8.7 mg/dL Normal 8.5-10.1 [facility] Comment on above: Performed By: #### U MICRO, ERUR #### [facility] [address] [place] [address] Dr. Alfredo Lizama Chloride [Moles/Vol] 107 mmol/L Normal 98-107 [facility] Comment on above: Performed By: #### U MICRO, ERUR #### [facility] [address] [place] [address] Dr. Alfredo Lizama CO2 [Moles/Vol] 28.3 mmol/L Normal 21.0-32.0 [facility] Comment on above: Performed By: #### U MICRO, ERUR #### [facility] [address] [place] [address] Dr. Alfredo Lizama Creatinine [Mass/Vol] 0.70 mg/dL Normal 0.55-1.02 [facility] Comment on above: Performed By: #### U MICRO, ERUR #### [facility] [address] [place] [address] Dr. Alfredo Lizama EGFR-AF SAO TOMEAN >60 Normal >=60 [facility] Comment on above: Performed By: #### U MICRO, ERUR #### [facility] [address] [place] [address] Dr. Alfredo Lizama EGFR-NON AF SAO TOMEAN >60 Normal >=60 [facility] Comment on above: Performed By: #### U MICRO, ERUR #### [facility] [address] [address] [address] Alfredo Lizama Glucose [Mass/Vol] 97 mg/dL Normal 74-106 [facility] Comment on above: Performed By: #### U MICRO, ERUR #### [facility] [address] [address] [address] Alfredo Lizama Potassium [Moles/Vol] 3.7 mmol/L Normal 3.5-5.1 [facility] Comment on above: Performed By: #### U MICRO, ERUR #### [facility] [address] [address] [address] Alfredo Lizama Sodium [Moles/Vol] 140 mmol/L Normal 136-145 [facility] Comment on above: Performed By: #### U MICRO, ERUR #### [facility] [address] [address] [address] Alfredo Lizama Urea nitrogen [Mass/Vol] 7.0 mg/dL Normal 7.0-18.0 [facility] Comment on above: Performed By: #### U MICRO, ERUR #### [facility] [address] [place] [address] Dr. Alfredo Lizama Urea nitrogen/Creatinine [Mass ratio] 10.0 mg/mg Normal [facility] Comment on above: Performed By: #### U MICRO, ERUR #### [facility] [address] [place] [address] Dr. Alfredo Lizama URINE MICROSCOPIC ONLYon AMORPHOUS CRYSTALS FEW Normal [facility] Comment on above: Performed By: #### E RUR, UMICRO #### [facility] [address] [place] [address] Dr. Alfredo Lizama BACTERIA LARGE Abnormal NONE SEEN [facility] Comment on above: Performed By: #### E RUR, UMICRO #### [facility] [address] [place] [address] Dr. Alfredo Lizama Bacteria identified Cx Nom (U) INDICATED Normal [facility] Comment on above: Performed By: #### E RUR, UMICRO #### [facility] [address] [place] [address] Dr. Alfredo Lizama CAST NONE SEEN Normal NONE SEEN [facility] Comment on above: Performed By: #### E RUR, UMICRO #### [facility] [address] [place] [address] Dr. Alfredo Lizama Crystals LM Nom (Urine sed) SEEN Abnormal NONE SEEN [facility] Comment on above: Performed By: #### E RUR, UMICRO #### [facility] [address] [place] [address] Dr. Alfredo Lizama Epithelial cells LM Ql (Urine sed) RARE Normal NONE SEEN /RARE [facility] Comment on above: Performed By: #### E RUR, UMICRO #### [facility] [address] [place] [address] Dr. Alfredo Lizama MUCOUS NONE SEEN Normal NONE SEEN [facility] Comment on above: Performed By: #### E RUR, UMICRO #### [facility] [address] [place] [address] Dr. Alfredo Lizama RBC 2-5 Abnormal 0-2 [facility] Comment on above: Performed By: #### E RUR, UMICRO #### [facility] [address] [place], [place] [address] Dr. Alfredo Lizama TRIPLE PHOS CRYSTALS FEW Normal [facility] Comment on above: Performed By: #### LINDA CHAVES #### [facility] [address] [place], [place] [address] Dr. Alfredo Lizama WBC 75-100 Abnormal NONE SEEN [facility] Comment on above: Performed By: #### LINDA CHAVES #### [facility] [address] [place], [place] [address] Dr. Alfredo Lizama Patient Letter FTon 2022 Patient Letter [facility] (Inserted Image. Shelly ble to display) January 10, 2023 MORALES LEE [address] [place] [address] MORALES LEE 1975 Dear Morales, I am corresponding with you by certified mail because of repeat non compliance. You missed your catheter exchange appointment on 12/31/22. It is recommended your Lavares catheter be exchanged every 4 weeks to prevent encrustation and infection. Also you were referred to Dr Zhang at [facility] for further evaluation regarding [...] [facility] [address], [place] [address] Normal [facility] CULTURE URINEon 12-25-2022 CULTURE URINE Isolate [...] F Trimethoprim/Sulfamethoxazo le <=20 S F Normal [facility] Comment on above: Performed By: #### U MICRO, ERUR #### [facility] [address] [place] [address] Dr. Alfredo Lizama AMYLASEon 11-09-2022 Amylase [Catalytic activity/Vol] 14 U/L Critically low 25-115 [facility] Comment on above: Performed By: #### U MICRO, ERUR #### [facility] [address] [place] [address] Dr. Alfredo Lizama CBC AUTO DIFFon 11-09-2022 BASO # 0.1 103/ul Normal 0.0-0.1 [facility] Comment on above: Performed By: #### U MICRO, ERUR #### [facility] [address] [place] [address] Dr. Alfredo Lizama Basophils/100 WBC (Bld) 0.8 % Normal 0.2-2.0 [facility] Comment on above: Performed By: #### U MICRO, ERUR #### [facility] [address] [place] [address] Dr. Alfredo Lizama EO # 0.2 103/ul Normal 0.0-0.7 [facility] Comment on above: Performed By: #### U MICRO, ERUR #### [facility] [address] [place] [address] Dr. Alfredo Lizama Eosinophils/100 WBC (Bld) 2.5 % Normal 0.9-7.0 [facility] Comment on above: Performed By: #### U MICRO, ERUR #### [facility] [address] [place] [address] Dr. Alfredo Lizama Erythrocyte distribution width (RBC) [Ratio] 12.7 % Normal 11.0-15.0 [facility] Comment on above: Performed By: #### U MICRO, ERUR #### [facility] [address] [place] [address] Dr. Alfredo Lizama Hematocrit (Bld) [Volume fraction] 46.3 % Normal 36.0-48.0 [facility] Comment on above: Performed By: #### U MICRO, ERUR #### [facility] [address] [place] [address] Dr. Alfredo Lizama Hemoglobin (Bld) [Mass/Vol] 15.9 g/dL Normal 12.0-16.0 [facility] Comment on above: Performed By: #### U MICRO, ERUR #### [facility] [address] [place] [address] Dr. Alfredo Lizama IG # 0.02 10e3/ul Normal 0.00-0.03 [facility] Comment on above: Performed By: #### U MICRO, ERUR #### [facility] [address] [place] [address] Dr. Alfredo Lizama IG % 0.2 % Normal 0.0-0.5 [facility] Comment on above: Performed By: #### U MICRO, ERUR #### [facility] [address] [place] [address] Dr. Alfredo Lizama LYMPH # 2.6 103/ul Normal 1.2-3.8 [facility] Comment on above: Performed By: #### U MICRO, ERUR #### [facility] [address] [place] [address] Dr. Alfredo Lizama Lymphocytes/100 WBC (Bld) 31.3 % Normal 20.5-60.0 [facility] Comment on above: Performed By: #### U MICRO, ERUR #### [facility] [address] [place] [address] Dr. Alfredo Lizama MANUAL DIFF REQ NO Normal [facility] Comment on above: Performed By: #### U MICRO, ERUR #### [facility] [address] [place] [address] Dr. Alfredo Lizama MCH (RBC) [Entitic mass] 29.3 pg Normal 26.7-34.0 [facility] Comment on above: Performed By: #### U MICRO, ERUR #### [facility] [address] [place] [address] Dr. Alfredo Lizama MCHC (RBC) [Mass/Vol] 34.3 g/dL Normal 29.9-35.2 [facility] Comment on above: Performed By: #### U MICRO, ERUR #### [facility] [address] [place] [address] Dr. Alfredo Lizama MCV (RBC) [Entitic vol] 85.4 fL Normal 81.0-99.0 [facility] Comment on above: Performed By: #### U MICRO, ERUR #### [facility] [address] [place] [address] [address] Alfredo Lizama MONO # 0.6 103/ul Normal 0.3-0.8 [facility] Comment on above: Performed By: #### U MICRO, ERUR #### [facility] [address] [place] [address] Dr. Alfredo Lizama Monocytes/100 WBC (Bld) 6.6 % Normal 1.7-12.0 [facility] Comment on above: Performed By: #### U MICRO, ERUR #### [facility] [address] [place] [address] Dr. Alfredo Lizama NEUT # 4.9 103/ul Normal 1.4-6.5 [facility] Comment on above: Performed By: #### U MICRO, ERUR #### [facility] [address] [place] [address] Dr. Alfredo Lizama Neutrophils/100 WBC (Bld) 58.6 % Normal 43.0-75.0 [facility] Comment on above: Performed By: #### U MICRO, ERUR #### [facility] [address] [place] [address] [address] Alfredo Lizama Platelet mean volume (Bld) [Entitic vol] 9.5 fL Normal 9.5-13.5 [facility] Comment on above: Performed By: #### U MICRO, ERUR #### [facility] [address] [place] [address] Dr. Alfredo Lizama PLT 273 103/ul Normal 150-450 [facility] Comment on above: Performed By: #### U MICRO, ERUR #### [facility] [address] [place] [address] Dr. Alfredo Lizama RBC 5.42 106/ul Critically high 4.20-5.40 [facility] Comment on above: Performed By: #### U MICRO, ERUR #### [facility] [address] [place] [address] Dr. Alfredo Lizama WBC 8.4 103/ul Normal 4.0-11.0 [facility] Comment on above: Performed By: #### U MICRO, ERUR #### [facility] [address] [place] [address] Dr. Alfredo Lizama CULTURE URINEon 11-09-2022 CULTURE URINE Culture Observations : MODERATE GROWTH OF MIXED GENITAL ROSANNA. NO POTENTIAL PATHOGENS SEEN. Normal [facility] Comment on above: Performed By: #### U MICRO, ERUR #### [facility] [address] [place] [address] Dr. Alfredo Lizama ER URINE PROFILEon 3 Bilirubin Ql (U) Negative Normal NEGATIVE [facility] Comment on above: Performed By: #### U MICRO, ERUR #### [facility] [address] [place] [address] Dr. Alfredo Lizama Clarity (U) CLEAR Normal CLEAR [facility] Comment on above: Performed By: #### U MICRO, ERUR #### [facility] [address] [place] [address] Dr. Alfredo Lizama Color (U) LT. YELLOW Normal YELLOW [facility] Comment on above: Performed By: #### U MICRO, ERUR #### [facility] [address] [place] [address] Dr. Alfredo Lizama ERUAHD A micrscopic examina tion will be performed if indicated. Normal [facility] Comment on above: Performed By: #### U MICRO, ERUR #### [facility] [address] [place] [address] Dr. Alfredo Lizama Glucose Ql (U) Negative Normal NEGATIVE [facility] Comment on above: Performed By: #### U MICRO, ERUR #### [facility] [address] [place] [address] [address] Alfredo Lizama Hemoglobin Ql (U) MODERATE Abnormal NEGATIVE [facility] Comment on above: Performed By: #### U MICRO, ERUR #### [facility] [address] [place] [address] Dr. Alfredo Lizama Ketones Ql (U) Negative Normal NEGATIVE [facility] Comment on above: Performed By: #### U MICRO, ERUR #### [facility] [address] [place] [address] Dr. Alfredo Lizama LEUKOCYTES LARGE Abnormal NEGATIVE [facility] Comment on above: Performed By: #### U MICRO, ERUR #### [facility] [address] [place] [address] Dr. Alfredo Lizama Nitrite Ql (U) Negative Normal NEGATIVE [facility] Comment on above: Performed By: #### U MICRO, ERUR #### [facility] [address] [place] [address] Dr. Alfredo Lizama pH (U) 7.0 [pH] Normal 5-9 [facility] Comment on above: Performed By: #### U MICRO, ERUR #### [facility] [address] [place] [address] Dr. Alfredo Lizama SPEC GRAVITY 1.015 Normal 1.005-<=1.0 25 [facility] Comment on above: Performed By: #### U MICRO, ERUR #### [facility] [address] [place] [address] Dr. Alfredo Lizama UA PROTEIN Negative Normal NEGATIVE/ TRACE [facility] Comment on above: Performed By: #### U MICRO, ERUR #### [facility] [address] [place] [address] Dr. Alfredo Lizama UR MICRO IND INDICATED Normal [facility] Comment on above: Performed By: #### U MICRO, ERUR #### [facility] [address] [place] [address] Dr. Alfredo Lizama Urobilinogen Qn (U) 0.2 {Tesha'U}/dL Normal 0.2 - 1. 0 [facility] Comment on above: Performed By: #### U MICRO, ERUR #### [facility] [address] [place] [address] [address] Alfredo Lizama LIPASEon 11-09-2022 Lipase [Catalytic activity/Vol] 34.0 U/L Critically low 73.0-393.0 [facility] Comment on above: Performed By: #### U MICRO, ERUR #### [facility] [address] [place] [address] Dr. Alfredo Lizama PROF 14(COMP METB)on 023 Albumin [Mass/Vol] 4.0 g/dL Normal 3.4-5.0 [facility] Comment on above: Performed By: #### U MICRO, ERUR #### [facility] [address] [place] [address] Dr. Alfredo Lizama Albumin/Globulin [Mass ratio] 1.0 {ratio} Normal [facility] Comment on above: Performed By: #### U MICRO, ERUR #### [facility] [address] [place] [address] Dr. Alfredo Lizama ALP [Catalytic activity/Vol] 206 U/L Critically high 46-116 [facility] Comment on above: Performed By: #### U MICRO, ERUR #### [facility] [address] [place] [address] Dr. Aflredo Lizama ALT [Catalytic activity/Vol] 53 U/L Normal 14-59 [facility] Comment on above: Performed By: #### U MICRO, ERUR #### [facility] [address] [place] [address] Dr. Alfredo Lizama Anion gap [Moles/Vol] 14.5 mmol/L Normal [facility] Comment on above: Performed By: #### U MICRO, ERUR #### [facility] [address] [place] [address] Dr. Alfredo Lizama AST [Catalytic activity/Vol] 55 U/L Critically high 15-37 [facility] Comment on above: Performed By: #### U MICRO, ERUR #### [facility] [address] [place] [address] Dr. Alfredo Lizama Bilirubin [Mass/Vol] 0.7 mg/dL Normal 0.2-1.0 [facility] Comment on above: Performed By: #### U MICRO, ERUR #### [facility] [address] [place] [address] Dr. Alfredo Lizama Calcium [Mass/Vol] 9.0 mg/dL Normal 8.5-10.1 [facility] Comment on above: Performed By: #### U MICRO, ERUR #### [facility] [address] [place] [address] Dr. Alfredo Lizama Chloride [Moles/Vol] 100 mmol/L Normal 98-107 [facility] Comment on above: Performed By: #### U MICRO, ERUR #### [facility] [address] [place] [address] Dr. Alfredo Lizama CO2 [Moles/Vol] 28.3 mmol/L Normal 21.0-32.0 [facility] Comment on above: Performed By: #### U MICRO, ERUR #### [facility] [address] [place] [address] Dr. Alfredo Lizama Creatinine [Mass/Vol] 0.65 mg/dL Normal 0.55-1.02 [facility] Comment on above: Performed By: #### U MICRO, ERUR #### [facility] [address] [place] [address] Dr. Alfredo Lizama EGFR-AF SAO TOMEAN >60 Normal >=60 [facility] Comment on above: Performed By: #### U MICRO, ERUR #### [facility] [address] [place] [address] Dr. Alfredo iLzama EGFR-NON AF SAO TOMEAN >60 Normal >=60 [facility] Comment on above: Performed By: #### U MICRO, ERUR #### [facility] [address] [place] [address] Dr. Alrfedo Lizama Globulin (S) [Mass/Vol] 3.9 g/dL Normal [facility] Comment on above: Performed By: #### U MICRO, ERUR #### [facility] [address] [place] [address] Dr. Alfredo Lizama Glucose [Mass/Vol] 134 mg/dL Critically high 74-106 [facility] Comment on above: Performed By: #### U MICRO, ERUR #### [facility] [address] [place] [address] Dr. Alfredo Lizama Potassium [Moles/Vol] 3.8 mmol/L Normal 3.5-5.1 [facility] Comment on above: Performed By: #### U MICRO, ERUR #### [facility] [address] [place] [address] Dr. Alfredo Lizama Protein [Mass/Vol] 7.9 g/dL Normal 6.4-8.2 [facility] Comment on above: Performed By: #### U MICRO, ERUR #### [facility] [address] [place] [address] Dr. Alfredo Lizama Sodium [Moles/Vol] 139 mmol/L Normal 136-145 [facility] Comment on above: Performed By: #### U MICRO, ERUR #### [facility] [address] [place] [address] Dr. Alfredo Lizama Urea nitrogen [Mass/Vol] 7.0 mg/dL Normal 7.0-18.0 [facility] Comment on above: Performed By: #### U MICRO, ERUR #### [facility] [address] [place] [address] Dr. Alfredo Lizama Urea nitrogen/Creatinine [Mass ratio] 10.7 mg/mg Normal [facility] Comment on above: Performed By: #### U MICRO, ERUR #### [facility] [address] [place] [address] Dr. Alfredo Lizama URINE MICROSCOPIC ONLYon BACTERIA TRACE Abnormal NONE SEEN [facility] Comment on above: Performed By: #### U MICRO, ERUR #### [facility] [address] [place] [address] Dr. Alfredo Lizama Bacteria identified Cx Nom (U) INDICATED Normal [facility] Comment on above: Performed By: #### U MICRO, ERUR #### [facility] [address] [place] [address] Dr. Alfredo Lizama CAST NONE SEEN Normal NONE SEEN [facility] Comment on above: Performed By: #### U MICRO, ERUR #### [facility] [address] [place] [address] [address] Alfredo Lizama Crystals LM Nom (Urine sed) NONE SEEN Normal NONE SEEN [facility] Comment on above: Performed By: #### U MICRO, ERUR #### [facility] [address] [place] [address] [address] Alfredo Lizama Epithelial cells LM Ql (Urine sed) FEW Abnormal NONE SEEN /RARE [facility] Comment on above: Performed By: #### U MICRO, ERUR #### [facility] [address] [place] [address] [address] Alfredo Lizama MUCOUS NONE SEEN Normal NONE SEEN [facility] Comment on above: Performed By: #### U MICRO, ERUR #### [facility] [address] [place] [address] Dr. Alfredo Lizama RBC 20-50 Abnormal 0-2 [facility] Comment on above: Performed By: #### U MICRO, ERUR #### [facility] [address] [place] [address] [address] Alfredo Lizama WBC 20-50 Abnormal NONE SEEN [facility] Comment on above: Performed By: #### U MICRO, ERUR #### [facility] [address] [place] [address] Dr. Alfredo Lizama XR ABD FLAT_UPon 11-09-2022 [...] ENRIQUE LOWE Date: 2022-11-09 11:06 Normal [facility] CULTURE URINEon 10-18-2022 CULTURE URINE Isolate 1 [...] Trimethoprim/Sulfamethoxazo le <=10 S F Normal [facility] Comment on above: Performed By: #### U MICRO, ERUR #### [facility] [address] [place] [address] Dr. Alfredo Lizama ER URINE PROFILEon 3 Bilirubin Ql (U) Negative Normal NEGATIVE [facility] Comment on above: Performed By: #### FER CHAVESICRO #### [facility] [address] [place] [address] Dr. Alfredo Lizama Clarity (U) CLEAR Normal CLEAR [facility] Comment on above: Performed By: #### Jacque ESTRADA UMICRO #### [facility] [address] [place] [address] Dr. Alfredo Lizama Color (U) YELLOW Normal YELLOW [facility] Comment on above: Performed By: #### E SEAN UMICRO #### [facility] [address] [place] [address] Dr. Alfredo Lizama ERUAHD A micrscopic examina tion will be performed if indicated. Normal [facility] Comment on above: Performed By: #### E RUR, UMICRO #### [facility] [address] [place] [address] Dr. Alfredo Lizama Glucose Ql (U) Negative Normal NEGATIVE [facility] Comment on above: Performed By: #### Jacque ESTRADA UMICRO #### [facility] [address] [place] [address] Dr. Alfredo Lizama Hemoglobin Ql (U) LARGE Abnormal NEGATIVE [facility] Comment on above: Performed By: #### Jacque ESTRADA UMICRO #### [facility] [address] [place] [address] Dr. Alfredo Lizama Ketones Ql (U) Negative Normal NEGATIVE [facility] Comment on above: Performed By: #### Jacque ESTRADA UMICRO #### [facility] [address] [place] [address] Dr. Alfredo Lizama LEUKOCYTES LARGE Abnormal NEGATIVE [facility] Comment on above: Performed By: #### Jacque ESTRADA UMICRO #### [facility] [address] [place] [address] Dr. Alfredo Lizama Nitrite Ql (U) Positive Abnormal NEGATIVE [facility] Comment on above: Performed By: #### Jacque ESTRADA UMICRO #### [facility] [address] [place] [address] Dr. Alfredo Lizama pH (U) 6.5 [pH] Normal 5-9 [facility] Comment on above: Performed By: #### Jacque ESTRADA UMICRO #### [facility] [address] [place] [address] Dr. Alfredo Lizama Protein (U) [Mass/Vol] 100 mg/dL Abnormal NEGATIVE/ TRACE [facility] Comment on above: Performed By: #### Jacque ESTRADA UMICRO #### [facility] [address] [place] [address] Dr. Alfredo Lizama SPEC GRAVITY 1.010 Normal 1.005-<=1.0 25 [facility] Comment on above: Performed By: #### Jacque ESTRADA UMICRO #### [facility] [address] [place] [address] Dr. Alfredo Lizama UR MICRO IND INDICATED Normal [facility] Comment on above: Performed By: #### E RUR, UMICRO #### [facility] [address] [place] [address] Dr. Alfredo Lizama Urobilinogen Qn (U) 1.0 {Tesha'U}/dL Normal 0.2 - 1. 0 [facility] Comment on above: Performed By: #### E RUR, UMICRO #### [facility] [address] [place] [address] [address] Alfredo Lizama URINE MICROSCOPIC ONLYon BACTERIA MODERATE Abnormal NONE SEEN [facility] Comment on above: Performed By: #### U MICRO, ERUR #### [facility] [address] [place] [address] Dr. Alfredo Lizama Bacteria identified Cx Nom (U) INDICATED Normal [facility] Comment on above: Performed By: #### U MICRO, ERUR #### [facility] [address] [place] [address] Dr. Alfredo Lizama CA OX CRYSTALS RARE Normal [facility] Comment on above: Performed By: #### U MICRO, ERUR #### [facility] [address] [place] [address] Dr. Alfredo Lizama CAST NONE SEEN Normal NONE SEEN [facility] Comment on above: Performed By: #### U MICRO, ERUR #### [facility] [address] [place] [address] Dr. Alfredo Lizama Crystals LM Nom (Urine sed) SEEN Abnormal NONE SEEN [facility] Comment on above: Performed By: #### U MICRO, ERUR #### [facility] [address] [place] [address] Dr. Alfredo Lizama Epithelial cells LM Ql (Urine sed) MODERATE Abnormal NONE SEEN /RARE [facility] Comment on above: Performed By: #### U MICRO, ERUR #### [facility] [address] [place] [address] Dr. Alfredo Lizama MUCOUS TRACE Abnormal NONE SEEN [facility] Comment on above: Performed By: #### U MICRO, ERUR #### [facility] [address] [place] [address] Dr. Alfredo Lizama RBC 20-50 Abnormal 0-2 [facility] Comment on above: Performed By: #### U MICRO, ERUR #### [facility] [address] [place] [address] Dr. Alfredo Lizama WBC 50-75 Abnormal NONE SEEN [facility] Comment on above: Performed By: #### U MICRO, ERUR #### [facility] [address] [place] [address] Dr. Alfredo Lizama Covid-19 PCR ([facility])on 08-06 SARS-CoV-2 (COVID-19) RNA ADRIÁN+probe Ql (Unsp spec) Not detected Normal NOT DETECTED [facility] Comment on above: Result [...] for this test is supported by the Production Inspector of Health and Human Service's declaration that [...] Performed By: #### U MICRO, ERUR #### [facility] [address] [place] [address] Dr. Alfredo Lizama CBC AUTO DIFFon 08-24-2022 BASO # 0.1 103/ul Normal 0.0-0.1 [facility] Comment on above: Performed By: #### C BC #### [facility] [address] [place] [address] Dr. Alfredo Lizama Basophils/100 WBC (Bld) 0.8 % Normal 0.2-2.0 [facility] Comment on above: Performed By: #### C BC #### [facility] [address] [address] [address] Alfredo Lizama EO # 0.3 103/ul Normal 0.0-0.7 [facility] Comment on above: Performed By: #### C BC #### [facility] [address] [place] [address] Dr. Alfredo Lizama Eosinophils/100 WBC (Bld) 3.1 % Normal 0.9-7.0 [facility] Comment on above: Performed By: #### C BC #### [facility] [address] [place] [address] Dr. Alfredo Lizama Erythrocyte distribution width (RBC) [Ratio] 13.4 % Normal 11.0-15.0 [facility] Comment on above: Performed By: #### C BC #### [facility] [address] [place] [address] Dr. Alfredo Lizama Hematocrit (Bld) [Volume fraction] 47.2 % Normal 36.0-48.0 [facility] Comment on above: Performed By: #### C BC #### [facility] [address] [place] [address] Dr. Alfredo Lizama Hemoglobin (Bld) [Mass/Vol] 15.6 g/dL Normal 12.0-16.0 [facility] Comment on above: Performed By: #### C BC #### [facility] [address] [place] [address] Dr. Alfredo Lizama IG # 0.02 10e3/ul Normal 0.00-0.03 [facility] Comment on above: Performed By: #### C BC #### [facility] [address] [place] [address] Dr. Alfredo Lizama IG % 0.2 % Normal 0.0-0.5 [facility] Comment on above: Performed By: #### C BC #### [facility] [address] [place] [address] Dr. Alfredo Lizama LYMPH # 4.4 103/ul Critically high 1.2-3.8 [facility] Comment on above: Performed By: #### C BC #### [facility] [address] [place] [address] Dr. Alfredo Lizama Lymphocytes/100 WBC (Bld) 42.3 % Normal 20.5-60.0 [facility] Comment on above: Performed By: #### C BC #### [facility] [address] [place] [address] Dr. Alfredo Lizama MANUAL DIFF REQ NO Normal [facility] Comment on above: Performed By: #### C BC #### [facility] [address] [place] [address] Dr. Alfredo Lizama MCH (RBC) [Entitic mass] 28.8 pg Normal 26.7-34.0 [facility] Comment on above: Performed By: #### C BC #### [facility] [address] [place] [address] Dr. Alfredo Lizama MCHC (RBC) [Mass/Vol] 33.1 g/dL Normal 29.9-35.2 [facility] Comment on above: Performed By: #### C BC #### [facility] [address] [place] [address] Dr. Alfredo Lizama MCV (RBC) [Entitic vol] 87.2 fL Normal 81.0-99.0 [facility] Comment on above: Performed By: #### C BC #### [facility] [address] [place] [address] Dr. Alfredo Lizama MONO # 0.6 103/ul Normal 0.3-0.8 [facility] Comment on above: Performed By: #### C BC #### [facility] [address] [place] [address] Dr. Alfredo Lizama Monocytes/100 WBC (Bld) 5.3 % Normal 1.7-12.0 [facility] Comment on above: Performed By: #### C BC #### [facility] [address] [place] [address] Dr. Alfredo Lizama NEUT # 5.0 103/ul Normal 1.4-6.5 [facility] Comment on above: Performed By: #### C BC #### [facility] [address] [address] [address] Alfredo Lizama Neutrophils/100 WBC (Bld) 48.3 % Normal 43.0-75.0 [facility] Comment on above: Performed By: #### C BC #### [facility] [address] [address] [address] Alfredo Lizama Platelet mean volume (Bld) [Entitic vol] 9.9 fL Normal 9.5-13.5 [facility] Comment on above: Performed By: #### C BC #### [facility] [address] [address] [address] Alfredo Lizama PLT 298 103/ul Normal 150-450 [facility] Comment on above: Performed By: #### C BC #### [facility] [address] [place] [address] Dr. Alfredo Lizama RBC 5.41 106/ul Critically high 4.20-5.40 [facility] Comment on above: Performed By: #### C BC #### [facility] [address] [address] [address] Alfredo Lizama WBC 10.3 103/ul Normal 4.0-11.0 [facility] Comment on above: Performed By: #### C BC #### [facility] [address] [place] [address] Dr. Alfredo Lizama PROF CHEM 8 (BAS METB)on Anion gap [Moles/Vol] 14.3 mmol/L Normal [facility] Comment on above: Performed By: #### U MICRO, ERUR #### [facility] [address] [place] [address] Dr. Alfredo Lizama Calcium [Mass/Vol] 9.1 mg/dL Normal 8.5-10.1 [facility] Comment on above: Performed By: #### U MICRO, ERUR #### [facility] [address] [place] [address] Dr. Alfredo Lizama Chloride [Moles/Vol] 99 mmol/L Normal 98-107 [facility] Comment on above: Performed By: #### U MICRO, ERUR #### [facility] [address] [address] [address] Alfredo Lizama CO2 [Moles/Vol] 29.0 mmol/L Normal 21.0-32.0 [facility] Comment on above: Performed By: #### U MICRO, ERUR #### [facility] [address] [address] [address] Alfredo Lizama Creatinine [Mass/Vol] 0.70 mg/dL Normal 0.55-1.02 [facility] Comment on above: Performed By: #### U MICRO, ERUR #### [facility] [address] [address] [address] Alfredo Lizama EGFR-AF SAO TOMEAN >60 Normal >=60 [facility] Comment on above: Performed By: #### U MICRO, ERUR #### [facility] [address] [address] [address] Alfredo Lizama EGFR-NON AF SAO TOMEAN >60 Normal >=60 [facility] Comment on above: Performed By: #### U MICRO, ERUR #### [facility] [address] [address] [address] Alfredo Lziama Glucose [Mass/Vol] 121 mg/dL Critically high 74-106 T [facility] Comment on above: Performed By: #### U MICRO, ERUR #### [facility] [address] [address] [address] Alfredo Lizama Potassium [Moles/Vol] 3.3 mmol/L Critically low 3.5-5.1 [facility] Comment on above: Performed By: #### U MICRO, ERUR #### [facility] [address] [address] [address] Alfredo Lizama Sodium [Moles/Vol] 139 mmol/L Normal 136-145 [facility] Comment on above: Performed By: #### U MICRO, ERUR #### [facility] [address] [address] [address] Alfredo Lizama Urea nitrogen [Mass/Vol] 5.0 mg/dL Critically low 7.0-18.0 [facility] Comment on above: Performed By: #### U MICRO, ERUR #### [facility] [address] [place] [address] Dr. Alfredo Lizama Urea nitrogen/Creatinine [Mass ratio] 7.1 mg/mg Normal [facility] Comment on above: Performed By: #### U MICRO, ERUR #### [facility] [address] [place] [address] Dr. Alfredo Lizama PROTIMEon 08-24-2022 INR Coag (PPP) [Relative time] 0.99 {INR} Normal [facility] Comment on above: Performed By: #### P T, PTT #### [facility] [address] [place] [address] Dr. Alfredo Lizama INR GUIDELINES SEE BELOW Normal [facility] Comment on above: Result Comment: MARY JO RED INR: 2.0 - 3.0 CONDITIONS NOT LISTED BELOW 2.5 - 3.5 FOR PROSTHETIC HEART VALVE REPLACEMENT 2.5 - 3.5 RECURRENT THROMBOSIS Performed By: #### P T, PTT #### [facility] [address] [place] [address] Dr. Alfredo Lizama PT Coag (PPP) [Time] 10.7 s Normal 9.0-11.6 [facility] Comment on above: Performed By: #### P T, PTT #### [facility] [address] [place] [address] Dr. Alfredo Lizama PTTon 08-24-2022 aPTT Coag (Bld) [Time] 31.7 s Normal 22.3-36.2 [facility] Comment on above: Performed By: #### P T, PTT #### [facility] [address] [place] [address] Dr. Alfredo Lizama BN SACRUM/COCCYX, MIN 2 [...] 09/20/2019. Thoracolumbar spine radiographs 09/08/2021. ACCESSION NUMBER(S): [id number]; [id number]; [id number] ORDERING CLINICIAN: CANDICE PEREZ FINDINGS: Three views [...] Electronically signed by: GOMEZ JAMA MD Normal [facility] BN SPINE, LUMBOSACRAL; 2 OR 3 VIEWSon 06-07-2022 BN SPINE, LUMBOSACRAL; 2 OR 3 VIEWS Patient Name: JESUSMORALES STUDY: SPINE, LUMBOSACRAL; 2 OR 3 VIEWS; [...] 09/20/2019. Thoracolumbar spine radiographs 09/08/2021. ACCESSION NUMBER(S): [id number]; [id number]; [id number] ORDERING CLINICIAN: CANDICE PEREZ FINDINGS: Three views [...] Electronically signed by: GOMEZ JAMA MD Normal [facility] SPINE, THORACIC, 3 VIEWSo n 06-07-2022 BN [...] 09/20/2019. Thoracolumbar spine radiographs 09/08/2021. ACCESSION NUMBER(S): [id number]; [id number]; [id number] ORDERING CLINICIAN: CANDICE PEREZ FINDINGS: Three views [...] Electronically signed by: GOMEZ JAMA MD Normal [facility] CBC AND DIFFERENTIALon 06-07 % AUTOMATED IMMATURE GRAN 0.2 % Normal 0.0 - 0.9 [facility] Comment on above: Result Comment: Jaleesa ture Granulocyte Count (IG) includes promyelocytes, myelocytes and metamyelocytes but does not include bands. Percent differential counts (%) should be interpreted in the context of the absolute cell counts (cells/L). Performed By: #### R ENAL #### [facility] [address] [place] [address] Basophils (Bld) [#/Vol] 0.09 10*3/uL Normal 0.00 - 0.10 [facility] Comment on above: Performed By: #### R ENAL #### [facility] [address] [place] [address] Basophils/100 WBC (Bld) 1.0 % Normal 0.0 - 2.0 [facility] Comment on above: Performed By: #### R ENAL #### [facility] [address] [place] [address] Eosinophils (Bld) [#/Vol] 0.24 10*3/uL Normal 0.00 - 0.70 [facility] Comment on above: Performed By: #### R ENAL #### [facility] [address] [place] [address] Eosinophils/100 WBC (Bld) 2.6 % Normal 0.0 - 6.0 [facility] Comment on above: Performed By: #### R ENAL #### [facility] [address] [place] [address] Erythrocyte distribution width (RBC) [Ratio] 12.9 % Normal 11.5 - 14.5 [facility] Comment on above: Performed By: #### R ENAL #### [facility] [address] [place] [address] Hematocrit (Bld) [Volume fraction] 48.4 % High 36.0 - 46.0 [facility] Comment on above: Performed By: #### R ENAL #### [facility] [address] [place] [address] Hemoglobin (Bld) [Mass/Vol] 17.1 g/dL High 12.0 - 16.0 [facility] Comment on above: Performed By: #### R ENAL #### [facility] [address] [place] [address] Lymphocytes (Bld) [#/Vol] 2.93 10*3/uL Normal 1.20 - 4.80 [facility] Comment on above: Performed By: #### R ENAL #### [facility] [address] [place] [address] Lymphocytes/100 WBC (Bld) 31.9 % Normal 13.0 - 44.0 [facility] Comment on above: Performed By: #### R ENAL #### [facility] [address] [place] [address] MCHC (RBC) [Mass/Vol] 35.3 g/dL Normal 32.0 - 36.0 [facility] Comment on above: Performed By: #### R ENAL #### [facility] [address] [place] [address] MCV (RBC) [Entitic vol] 85 fL Normal 80 - 100 [facility] Comment on above: Performed By: #### R ENAL #### [facility] [address] [place] [address] Monocytes (Bld) [#/Vol] 0.36 10*3/uL Normal 0.10 - 1.00 [facility] Comment on above: Performed By: #### R ENAL #### [facility] [address] [place] [address] Monocytes/100 WBC (Bld) 3.9 % Normal 2.0 - 10.0 [facility] Comment on above: Performed By: #### R ENAL #### [facility] [address] [place] [address] Neutrophils (Bld) [#/Vol] 5.54 10*3/uL Normal 1.20 - 7.70 [facility] Comment on above: Performed By: #### R ENAL #### [facility] [address] [place] [address] Neutrophils/100 WBC (Bld) 60.4 % Normal 40.0 - 80.0 [facility] Comment on above: Performed By: #### R ENAL #### [facility] [address] [place] [address] NUCLEATED RBC 0.0 /100 WBC Normal 0.0-0.0 [facility] Comment on above: Performed By: #### R ENAL #### [facility] [address] [place] [address] Platelets (Bld) [#/Vol] 365 10*3/uL Normal 150 - 450 [facility] Comment on above: Performed By: #### R ENAL #### [facility] [address] [place] [address] RBC 5.69 x10E12/L High 4.00 - 5.20 [facility] Comment on above: Performed By: #### R ENAL #### [facility] [address] [place] [address] WBC (Bld) [#/Vol] 9.2 10*3/uL Normal 4.4 - 11.3 [facility] Comment on above: Performed By: #### R ENAL #### [facility] [address] [place] [address] COMPREHENSIVE PANELon 2021 Albumin [Mass/Vol] 4.6 g/dL Normal 3.4 - 5.0 [facility] Comment on above: Performed By: #### R ENAL #### [facility] [address] [place] [address] ALP [Catalytic activity/Vol] 192 U/L High 33 - 110 [facility] Comment on above: Performed By: #### R ENAL #### [facility] [address] [place] [address] ALT [Catalytic activity/Vol] 33 U/L Normal 7 - 45 [facility] Comment on above: Result Comment: Melly ents treated with Sulfasalazine may generate falsely decreased results for ALT. Performed By: #### R ENAL #### [facility] [address] [place] [address] Anion gap [Moles/Vol] 16 mmol/L Normal 10 - 20 [facility] Comment on above: Performed By: #### R ENAL #### [facility] [address] [place] [address] AST [Catalytic activity/Vol] 51 U/L High 9 - 39 [facility] Comment on above: Performed By: #### R ENAL #### [facility] [address] [place] [address] Bilirubin [Mass/Vol] 0.5 mg/dL Normal 0.0 - 1.2 [facility] Comment on above: Performed By: #### R ENAL #### [facility] [address] [place] [address] Calcium [Mass/Vol] 10.3 mg/dL Normal 8.6 - 10.6 [facility] Comment on above: Performed By: #### R ENAL #### [facility] [address] [place] [address] Chloride [Moles/Vol] 101 mmol/L Normal 98 - 107 [facility] Comment on above: Performed By: #### R ENAL #### [facility] [address] [place] [address] Creatinine [Mass/Vol] 0.61 mg/dL Normal 0.50 - 1.05 [facility] Comment on above: Performed By: #### R ENAL #### [facility] [address] [place] [address] eGFR FEMALE >90 Normal >90 [facility] Comment on above: Result Comment: CALC ULATIONS OF ESTIMATED GFR ARE PERFORMED USING THE 2020 CKD-EPI STUDY REFIT EQUATION WITHOUT THE RACE VARIABLE FOR THE IDMS-TRACEABLE CREATININE METHODS. https://jasn.asnjournals.org/content/early/ASN.4028604 988 Performed By: #### R ENAL #### [facility] [address] [place] [address] Glucose [Mass/Vol] 100 mg/dL High 74 - 99 [facility] Comment on above: Performed By: #### R ENAL #### [facility] [address] [place] [address] HCO3 (Bld) [Moles/Vol] 27 mmol/L Normal 21 - 32 [facility] Comment on above: Performed By: #### R ENAL #### [facility] [address] [place] [address] Potassium [Moles/Vol] 3.8 mmol/L Normal 3.5 - 5.3 [facility] Comment on above: Performed By: #### R ENAL #### [facility] [address] [place] [address] Protein [Mass/Vol] 8.2 g/dL Normal 6.4 - 8.2 [facility] Comment on above: Performed By: #### R ENAL #### [facility] [address] [place] [address] Sodium [Moles/Vol] 140 mmol/L Normal 136 - 145 [facility] Comment on above: Performed By: #### R ENAL #### [facility] [address] [place] [address] Urea nitrogen [Mass/Vol] 5 mg/dL Low 6 - 23 [facility] Comment on above: Performed By: #### R ENAL #### [facility] [address] [place] [address] Consult - Neuro-Surgeryon Consult - Neuro-Surgery Service: [...] Updated: 07-Jun-2022 11:22 by Perez Carlisle) Normal [facility] NR CT L-SPINE WO CONTRASTon 06-07-[address] L-SPINE WO CONTRAST Patient Name: MORALES LEE STUDY: CT T-SPINE WO CONTRAST; CT L-SPINE WO CONTRAST 06/06/2022 11:03 pm INDICATION: ok, Lie Flat: Yes COMPARISON: 09/20/2021 MRI and 09/18/2021 CT ACCESSION NUMBER(S): [id number]; [id number] ORDERING CLINICIAN: CANDICE PEREZ TECHNIQUE: Axial CT [...] osseous spinal canal or neural foraminal stenosis. [id number] spinal canal and neural foraminal narrowing described [...] view. Electronically signed by: DO Andrei TOURE [facility] NR CT T-SPINE WO CONTRASTon 06-07-[address] T-SPINE WO CONTRAST Patient Name: MORALES LEE STUDY: CT T-SPINE WO CONTRAST; CT L-SPINE WO CONTRAST 06/06/2022 11:03 pm INDICATION: ok, Lie Flat: Yes COMPARISON: 09/20/2021 MRI and 09/18/2021 CT ACCESSION NUMBER(S): [id number]; [id number] ORDERING CLINICIAN: CANDICE PEREZ TECHNIQUE: Axial CT [...] osseous spinal canal or neural foraminal stenosis. [id number] spinal canal and neural foraminal narrowing described [...] view. Electronically signed by: DO Andrei TOURE [facility] Provider Note - ED Care Diaz cassieon [...] 21-Jun-2022 06:18 by Yony Aguirre () Normal [facility] Provider Note - ED v3on 10-0 [...] - M21.37 (more content not included)... Normal [facility] Triage - EDon 06-06-2022 Triage [...] BMI (kg/m2): 34.793 Calculated BSA (m2) 1.94 [place] Coma Scale: Best Eye Response: (E4) spontaneous Best Motor Response: (M6) obeys commands Best Verbal Response: (V5) oriented [place] Score: 15 Mask applied: yes Patient has [...] 06-Jun-2022 19:07 by Meghan Chavez (MERA) Normal [facility] CULTURE URINEon 05-10-2022 CULTURE URINE Isolate 1 [...] Trimethoprim/Sulfamethoxazo le <=20 S F Normal [facility] Comment on above: Performed By: #### U MICRO, ERUR #### [facility] [address] [place] [address] Dr. Alfredo Lizama CBC AUTO DIFFon 05-07-2022 BASO # 0.1 103/ul Normal 0.0-0.1 [facility] Comment on above: Performed By: #### U MICRO, ERUR #### [facility] [address] [place] [address] Dr. Alfredo Lizama Basophils/100 WBC (Bld) 0.5 % Normal 0.2-2.0 [facility] Comment on above: Performed By: #### U MICRO, ERUR #### [facility] [address] [place] [address] Dr. Alfredo Lizama EO # 0.4 103/ul Normal 0.0-0.7 [facility] Comment on above: Performed By: #### U MICRO, ERUR #### [facility] [address] [place] [address] Dr. Alfredo Lizama Eosinophils/100 WBC (Bld) 3.5 % Normal 0.9-7.0 [facility] Comment on above: Performed By: #### U MICRO, ERUR #### [facility] [address] [place] [address] Dr. Alfredo Lizama Erythrocyte distribution width (RBC) [Ratio] 13.2 % Normal 11.0-15.0 [facility] Comment on above: Performed By: #### U MICRO, ERUR #### [facility] [address] [place] [address] Dr. Alfredo Lizama Hematocrit (Bld) [Volume fraction] 44.0 % Normal 36.0-48.0 [facility] Comment on above: Performed By: #### U MICRO, ERUR #### [facility] [address] [address] [address] Alfredo Lizama Hemoglobin (Bld) [Mass/Vol] 14.8 g/dL Normal 12.0-16.0 [facility] Comment on above: Performed By: #### U MICRO, ERUR #### [facility] [address] [address] [address] Alfredo Lizama IG # 0.03 10e3/ul Normal 0.00-0.03 [facility] Comment on above: Performed By: #### U MICRO, ERUR #### [facility] [address] [place] [address] Dr. Alfredo Lizama IG % 0.2 % Normal 0.0-0.5 [facility] Comment on above: Performed By: #### U MICRO, ERUR #### [facility] [address] [place] [address] Dr. Alfredo Lizama LYMPH # 3.8 103/ul Normal 1.2-3.8 [facility] Comment on above: Performed By: #### U MICRO, ERUR #### [facility] [address] [place] [address] Dr. Alfredo Lizama Lymphocytes/100 WBC (Bld) 31.3 % Normal 20.5-60.0 [facility] Comment on above: Performed By: #### U MICRO, ERUR #### [facility] [address] [place] [address] Dr. Alfredo Lizama MANUAL DIFF REQ NO Normal [facility] Comment on above: Performed By: #### U MICRO, ERUR #### [facility] [address] [place] [address] Dr. Alfredo Lizama MCH (RBC) [Entitic mass] 28.8 pg Normal 26.7-34.0 [facility] Comment on above: Performed By: #### U MICRO, ERUR #### [facility] [address] [place] [address] Dr. Alfredo Lizama MCHC (RBC) [Mass/Vol] 33.6 g/dL Normal 29.9-35.2 [facility] [facility] Comment on above: Performed By: #### U MICRO, ERUR #### [facility] [address] [address] [address] Alfredo Lizama MCV (RBC) [Entitic vol] 85.8 fL Normal 81.0-99.0 [facility] Comment on above: Performed By: #### U MICRO, ERUR #### [facility] [address] [place] [address] Dr. Alfredo Lizama MONO # 0.7 103/ul Normal 0.3-0.8 [facility] Comment on above: Performed By: #### U MICRO, ERUR #### [facility] [address] [place] [address] Dr. Alfredo Lizama Monocytes/100 WBC (Bld) 5.8 % Normal 1.7-12.0 [facility] Comment on above: Performed By: #### U MICRO, ERUR #### [facility] [address] [place] [address] Dr. Alfredo Lizama NEUT # 7.1 103/ul Critically high 1.4-6.5 [facility] Comment on above: Performed By: #### U MICRO, ERUR #### [facility] [address] [place] [address] Dr. Alfredo Lizama Neutrophils/100 WBC (Bld) 58.7 % Normal 43.0-75.0 [facility] Comment on above: Performed By: #### U MICRO, ERUR #### [facility] [address] [place] [address] Dr. Alfredo Lizama Platelet mean volume (Bld) [Entitic vol] 9.6 fL Normal 9.5-13.5 [facility] Comment on above: Performed By: #### U MICRO, ERUR #### [facility] [address] [place] [address] Dr. Alfredo Lizama PLT 269 103/ul Normal 150-450 [facility] Comment on above: Performed By: #### U MICRO, ERUR #### [facility] [address] [place] [address] Dr. Alfredo Lizama RBC 5.13 106/ul Normal 4.20-5.40 [facility] Comment on above: Performed By: #### U MICRO, ERUR #### [facility] [address] [place], [place] [address] Dr. Alfredo Lizama WBC 12.2 103/ul Critically high 4.0-11.0 [facility] Comment on above: Performed By: #### U MICRO, ERUR #### [facility] [address] [place], [place] [address] ABD/PELV W CONon [...] KORIN STANLEY Date: 2022-05-07 14:00 Normal [facility] ER URINE PROFILEon 2 Bilirubin Ql (U) Negative Normal NEGATIVE [facility] Comment on above: Performed By: #### U MICRO, ERUR #### [facility] [address] [address] [address] Alfredo Lizama Clarity (U) CLOUDY Abnormal CLEAR [facility] Comment on above: Performed By: #### U MICRO, ERUR #### [facility] [address] [address] [address] Alfredo Lizama Color (U) LT. YELLOW Normal YELLOW [facility] Comment on above: Performed By: #### U MICRO, ERUR #### [facility] [address] [address] [address] Alfredo Lizama ERUAHD A micrscopic examina tion will be performed if indicated. Normal [facility] Comment on above: Performed By: #### U MICRO, ERUR #### [facility] [address] [address] [address] Alfredo Lizama Glucose Ql (U) Negative Normal NEGATIVE [facility] Comment on above: Performed By: #### U MICRO, ERUR #### [facility] [address] [address] [address] Alfredo Lizama Hemoglobin Ql (U) LARGE Abnormal NEGATIVE [facility] Comment on above: Performed By: #### U MICRO, ERUR #### [facility] [address] [place] [address] Dr. Alfredo Lizama Ketones Ql (U) Negative Normal NEGATIVE [facility] Comment on above: Performed By: #### U MICRO, ERUR #### [facility] [address] [place] [address] Dr. Alfredo Lizama LEUKOCYTES MODERATE Abnormal NEGATIVE [facility] Comment on above: Performed By: #### U MICRO, ERUR #### [facility] [address] [place] [address] Dr. Alfredo Lizama Nitrite Ql (U) Positive Abnormal NEGATIVE [facility] Comment on above: Performed By: #### U MICRO, ERUR #### [facility] [address] [place] [address] Dr. Alfredo Lizama pH (U) 8.5 [pH] Normal 5-9 [facility] Comment on above: Performed By: #### U MICRO, ERUR #### [facility] [address] [place] [address] Dr. Alfredo Lizama Protein (U) [Mass/Vol] 100 mg/dL Abnormal NEGATIVE/ TRACE [facility] Comment on above: Performed By: #### U MICRO, ERUR #### [facility] [address] [place] [address] Dr. Alfredo Lizama SPEC GRAVITY 1.015 Normal 1.005-<=1.0 25 [facility] Comment on above: Performed By: #### U MICRO, ERUR #### [facility] [address] [place] [address] Dr. Alfredo Lizama UR MICRO IND INDICATED Normal [facility] Comment on above: Performed By: #### U MICRO, ERUR #### [facility] [address] [place] [address] Dr. Alfredo Lizama Urobilinogen Qn (U) 1.0 {Tesha'U}/dL Normal 0.2 - 1. 0 [facility] Comment on above: Performed By: #### U MICRO, ERUR #### [facility] [address] [place] [address] Dr. Alfredo Lizama PROF CHEM 8 (BAS METB)on Anion gap [Moles/Vol] 12.0 mmol/L Normal [facility] Comment on above: Performed By: #### U MICRO, ERUR #### [facility] [address] [place] [address] Dr. Alfredo Lizama Calcium [Mass/Vol] 8.6 mg/dL Normal 8.5-10.1 [facility] Comment on above: Performed By: #### U MICRO, ERUR #### [facility] [address] [place] [address] Dr. Alfredo Lizama Chloride [Moles/Vol] 101 mmol/L Normal 98-107 [facility] Comment on above: Performed By: #### U MICRO, ERUR #### [facility] [address] [place] [address] Dr. Alfredo Lizama CO2 [Moles/Vol] 28.0 mmol/L Normal 21.0-32.0 [facility] Comment on above: Performed By: #### U MICRO, ERUR #### [facility] [address] [place] [address] Dr. Alfredo Lizama Creatinine [Mass/Vol] 0.77 mg/dL Normal 0.55-1.02 [facility] Comment on above: Performed By: #### U MICRO, ERUR #### [facility] [address] [place] [address] Dr. Alfredo Lizama EGFR-AF SAO TOMEAN >60 Normal >=60 [facility] Comment on above: Performed By: #### U MICRO, ERUR #### [facility] [address] [place] [address] Dr. Alfredo Lizama EGFR-NON AF SAO TOMEAN >60 Normal >=60 [facility] Comment on above: Performed By: #### U MICRO, ERUR #### [facility] [address] [place] [address] Dr. Alfredo Lizama Glucose [Mass/Vol] 96 mg/dL Normal 74-106 [facility] Comment on above: Performed By: #### U MICRO, ERUR #### [facility] [address] [place] [address] Dr. Alfredo Lizama Potassium [Moles/Vol] 4.0 mmol/L Normal 3.5-5.1 [facility] Comment on above: Performed By: #### U MICRO, ERUR #### [facility] [address] [place] [address] Dr. Alfredo Lizama Sodium [Moles/Vol] 137 mmol/L Normal 136-145 [facility] Comment on above: Performed By: #### U MICRO, ERUR #### [facility] [address] [place] [address] Dr. Alfredo Lizama Urea nitrogen [Mass/Vol] 7.0 mg/dL Normal 7.0-18.0 [facility] Comment on above: Performed By: #### U MICRO, ERUR #### [facility] [address] [place] [address] Dr. Alfredo Lizama Urea nitrogen/Creatinine [Mass ratio] 9.1 mg/mg Normal [facility] Comment on above: Performed By: #### U MICRO, ERUR #### [facility] [address] [place] [address] Dr. Alfredo Lizama URINE MICROSCOPIC ONLYon BACTERIA MODERATE Abnormal NONE SEEN [facility] Comment on above: Performed By: #### U MICRO, ERUR #### [facility] [address] [place] [address] Dr. Alfredo Lizama Bacteria identified Cx Nom (U) INDICATED Normal [facility] Comment on above: Performed By: #### U MICRO, ERUR #### [facility] [address] [place] [address] Dr. Alfredo Lizama CAST NONE SEEN Normal NONE SEEN [facility] Comment on above: Performed By: #### U MICRO, ERUR #### [facility] [address] [place] [address] Dr. Alfredo Lizama Crystals LM Nom (Urine sed) NONE SEEN Normal NONE SEEN [facility] Comment on above: Performed By: #### U MICRO, ERUR #### [facility] [address] [place] [address] Dr. Alfredo Lizama Epithelial cells LM Ql (Urine sed) FEW Abnormal NONE SEEN /RARE [facility] Comment on above: Performed By: #### U MICRO, ERUR #### [facility] [address] [address] [address] Alfredo Lizama MUCOUS NONE SEEN Normal NONE SEEN [facility] Comment on above: Performed By: #### U MICRO, ERUR #### [facility] [address] [address] [address] Alfredo Lizama RBC 2-5 Abnormal 0-2 [facility] Comment on above: Performed By: #### U MICRO, ERUR #### [facility] [address] [address] [address] Alfredo Lizama WBC 10-20 Abnormal NONE SEEN [facility] Comment on above: Performed By: #### U MICRO, ERUR #### [facility] [address] [address] [address] Alfredo Lizama CULTURE URINEon 04-10-2022 CULTURE [...] Trimethoprim/Sulfamethoxazo le <=20 S F Normal [facility] Comment on above: Performed By: #### U MICRO, ERUR #### [facility] [address] [place] [address] Dr. Alfredo Lizama ER URINE PROFILEon 2 Bilirubin Ql (U) Negative Normal NEGATIVE [facility] Comment on above: Performed By: #### U MICRO, ERUR #### [facility] [address] [address] [address] Alfredo Lizama Clarity (U) CLOUDY Abnormal CLEAR [facility] Comment on above: Performed By: #### U MICRO, ERUR #### [facility] [address] [place] [address] Dr. Alfredo Lizama Color (U) YELLOW Normal YELLOW [facility] Comment on above: Performed By: #### U MICRO, ERUR #### [facility] [address] [place] [address] Dr. Alfredo Lizama ERUAHD A micrscopic examina tion will be performed if indicated. Normal [facility] Comment on above: Performed By: #### U MICRO, ERUR #### [facility] [address] [place] [address] Dr. Alfredo Lizama Glucose Ql (U) Negative Normal NEGATIVE [facility] Comment on above: Performed By: #### U MICRO, ERUR #### [facility] [address] [place] [address] Dr. Alfredo Lizama Hemoglobin Ql (U) SMALL Abnormal NEGATIVE [facility] Comment on above: Performed By: #### U MICRO, ERUR #### [facility] [address] [place] [address] Dr. Alfredo Lizama Ketones Ql (U) Negative Normal NEGATIVE [facility] Comment on above: Performed By: #### U MICRO, ERUR #### [facility] [address] [place] [address] Dr. Alfredo Lizama LEUKOCYTES LARGE Abnormal NEGATIVE [facility] Comment on above: Performed By: #### U MICRO, ERUR #### [facility] [address] [place] [address] Dr. Alfredo Lizama Nitrite Ql (U) Negative Normal NEGATIVE [facility] Comment on above: Performed By: #### U MICRO, ERUR #### [facility] [address] [place] [address] Dr. Alfredo Lizama pH (U) 7.0 [pH] Normal 5-9 [facility] Comment on above: Performed By: #### U MICRO, ERUR #### [facility] [address] [place] [address] Dr. Alfredo Lizama SPEC GRAVITY <=1.005 Abnormal 1.005-<=1.0 25 [facility] Comment on above: Performed By: #### U MICRO, ERUR #### [facility] [address] [place] [address] Dr. Alfredo Lizama UA PROTEIN Negative Normal NEGATIVE/ TRACE [facility] Comment on above: Performed By: #### U MICRO, ERUR #### [facility] [address] [place] [address] Dr. Alfredo Lizama UR MICRO IND INDICATED Normal [facility] Comment on above: Performed By: #### U MICRO, ERUR #### [facility] [address] [place] [address] Dr. Alfredo Lizama Urobilinogen Qn (U) 0.2 {Tesha'U}/dL Normal 0.2 - 1. 0 [facility] Comment on above: Performed By: #### U MICRO, ERUR #### [facility] [address] [place] [address] Dr. Alfredo Lizama URINE MICROSCOPIC ONLYon BACTERIA MODERATE Abnormal NONE SEEN [facility] Comment on above: Performed By: #### U MICRO, ERUR #### [facility] [address] [place] [address] Dr. Alfredo Lizama Bacteria identified Cx Nom (U) INDICATED Normal [facility] Comment on above: Performed By: #### U MICRO, ERUR #### [facility] [address] [place] [address] Dr. Alfredo Lizama CAST NONE SEEN Normal NONE SEEN [facility] Comment on above: Performed By: #### U MICRO, ERUR #### [facility] [address] [address] [address] Alfredo Lizama Crystals LM Nom (Urine sed) NONE SEEN Normal NONE SEEN [facility] Comment on above: Performed By: #### U MICRO, ERUR #### [facility] [address] [address] [address] Alfredo Lizama Epithelial cells LM Ql (Urine sed) FEW Abnormal NONE SEEN /RARE [facility] Comment on above: Performed By: #### U MICRO, ERUR #### [facility] [address] [address] [address] Alfredo Lizama MUCOUS NONE SEEN Normal NONE SEEN [facility] Comment on above: Performed By: #### U MICRO, ERUR #### [facility] [address] [address] [address] Alfredo Lizama RBC 5-10 Abnormal 0-2 [facility] Comment on above: Performed By: #### U MICRO, ERUR #### [facility] [address] [address] [address] Alfredo Lizama WBC (U) [#/Vol] /uL Abnormal NONE SEEN [facility] Comment on above: Performed By: #### U MICRO, ERUR #### [facility] [address] [address] [address] Alfredo Lizama Basic Metabolic Panelon 11-03 Calcium [Mass/Vol] 8.9 mg/dL Normal 8.2-10.2 [facility] Comment on above: Performed By: #### C BC, CMP, PAB #### [facility] [address] [place] [address] [place] Chloride [Moles/Vol] 101 mmol/L Normal 95-114 [facility] Comment on above: Performed By: #### C BC, CMP, PAB #### [facility] [address] [id number] [place] CO2 [Moles/Vol] 29.0 mmol/L Normal 22.0-30.0 [facility] Comment on above: Performed By: #### C BC, CMP, PAB #### [facility] [address] Creatinine [Mass/Vol] 0.48 mg/dL Normal 0.44-1.03 [facility] Comment on above: Performed By: #### C DARIUS PATEL, PAB #### [facility] [address] Creatinine Clr Calc Pharmacy 150.29 [facility] Comment on above: Result Comment: PERF ORMED BY: [place] [address] PATHOLOGIST [employer] HUY COX M.D. Performed By: #### C DARIUS PATEL, PAB #### [address] Estimated GFR ( Juliann > 60 [facility] Comment on above: Result Comment: GFR estimated reference range: According to KDOQI guidelines, <60 ml/min/1.73m2 is sufficient to diagnose a patient with chronic kidney disease. Performed By: #### C DARIUS PATEL, PAB #### [address] Estimated GFR (Non- Am > 60 [facility] Comment on above: Performed By: #### C DARIUS PATEL, PAB #### [address] Glucose [Mass/Vol] 111 mg/dL High 70-100 [facility] Comment on above: Result Comment: [place] Glucose Reference Range is dependent on time and content of last meal. Glucose of more than 200 mg/dL in a nonstressed, ambulatory subject supports the diagnosis of Diabetes Mellitus. ADA recommended reference range Performed By: #### C JORGE CMP, PAB #### [address] Potassium [Moles/Vol] 3.6 mmol/L Normal 3.5-5.1 [facility] Comment on above: Performed By: #### C BC CMP, PAB #### [facility] [address] [place] [address] [place] Sodium [Moles/Vol] 138 mmol/L Normal 136-146 [facility] Comment on above: Performed By: #### C BC, CMP, PAB #### [facility] [address] Urea nitrogen [Mass/Vol] 10 mg/dL Normal 9-23 [facility] Comment on above: Performed By: #### C BC, CMP, PAB #### [facility] [address] Complete Blood Count Auto Di ffon 11-19-2021 Basophils (Bld) [#/Vol] 0.1 10*3/uL Normal 0.0-0.2 [facility] Comment on above: Result Comment: PERF ORMED BY: [place] [address] PATHOLOGIST [employer] HUY COX M.D. Performed By: #### C BC, CMP, PAB #### [address] Basophils/100 WBC (Bld) 0.8 % Normal . [facility] Comment on above: Performed By: #### C BC, CMP, PAB #### [facility] [address] [place] [address] [place] Eosinophils (Bld) [#/Vol] 0.4 10*3/uL Normal 0.0-0.45 [facility] Comment on above: Performed By: #### C BC, CMP, PAB #### [place] [address] [place] Eosinophils/100 WBC (Bld) 5.8 % Normal . [facility] Comment on above: Performed By: #### C BC, CMP, PAB #### [address] Erythrocyte distribution width (RBC) [Ratio] 14.3 % Normal 11.9-15.3 [facility] Comment on above: Performed By: #### C BC, CMP, PAB #### [address] Hematocrit (Bld) [Volume fraction] 36.0 % Normal 34.0-46.4 [facility] Comment on above: Performed By: #### C BC, CMP, PAB #### [address] Hemoglobin (Bld) [Mass/Vol] 11.9 g/dL Normal 11.8-15.4 [facility] Comment on above: Performed By: #### C BC, CMP, PAB #### [address] Lymphocytes (Bld) [#/Vol] 2.7 10*3/uL Normal 1.00-4.8 [facility] Comment on above: Performed By: #### C BC, CMP, PAB #### [address] Lymphocytes/100 WBC (Bld) 37.6 % Normal . [facility] Comment on above: Performed By: #### C BC, CMP, PAB #### [address] MCH (RBC) [Entitic mass] 28.1 pg Normal 24.7-34.3 [facility] Comment on above: Performed By: #### C BC, CMP, PAB #### [address] MCV (RBC) [Entitic vol] 85.3 fL Normal 80-100 [facility] Comment on above: Performed By: #### C BC, CMP, PAB #### [address] Mean Corpuscular HGB Conc 32.9 g/dL Normal 32.0-35.0 [facility] Comment on above: Performed By: #### C BC, CMP, PAB #### [place] [address] [place] Monocytes (Bld) [#/Vol] 0.4 10*3/uL Normal 0.0-0.8 [facility] Comment on above: Performed By: #### C BC, CMP, PAB #### [place] [address] [place] Monocytes/100 WBC (Bld) 5.2 % Normal . [facility] Comment on above: Performed By: #### C BC, CMP, PAB #### [facility] [address] Neutrophils (Bld) [#/Vol] 3.7 10*3/uL Normal 1.8-7.7 [facility] Comment on above: Performed By: #### C BC, CMP, PAB #### [address] Neutrophils/100 WBC (Bld) 50.6 % Normal . [facility] Comment on above: Performed By: #### C BC, CMP, PAB #### [address] Nucleated RBC/100 WBC (Bld) [Ratio] 0.0 % Normal 0-0.5 [facility] Comment on above: Performed By: #### C BC, CMP, PAB #### [address] Platelet mean volume (Bld) [Entitic vol] 7.6 fL Normal 6.3-10.7 [facility] Comment on above: Performed By: #### C BC, CMP, PAB #### [place] [address] [place] Platelets (Bld) [#/Vol] 252 10*3/uL Normal 150-450 [facility] Comment on above: Performed By: #### C BC, CMP, PAB #### [place] [address] [place] RBC (Bld) [#/Vol] 4.22 10*6/uL Normal 3.60-5.00 [facility] Comment on above: Performed By: #### C BC, CMP, PAB #### [place] [address] [place] WBC (Bld) [#/Vol] 7.2 10*3/uL Normal 4.5-11.0 [facility] Comment on above: Performed By: #### C BC, CMP, PAB #### [place] [id number] [facility] Ammoniaon 11-11-2021 Ammonia (P) [Moles/Vol] 26 umol/L Normal 11-35 [facility] Comment on above: Result Comment: PERF ORMED BY: [place] [address] PATHOLOGIST [employer] HUY COX M.D. Performed By: #### C BC, CMP, PAB #### [address] Hepatic Panelon 11-11-2021 Albumin [Mass/Vol] 3.0 g/dL Low 3.2-5.5 [facility] Comment on above: Performed By: #### C BC, CMP, PAB #### [address] Albumin/Globulin [Mass ratio] 1.0 {ratio} Normal [facility] Comment on above: Performed By: #### C BC, CMP, PAB #### [address] ALP [Catalytic activity/Vol] 187 U/L High 32-92 [facility] Comment on above: Result Comment: PERF ORMED BY: [place] [address] PATHOLOGIST [employer] HUY COX M.D. Performed By: #### C BC, CMP, PAB #### [address] ALT [Catalytic activity/Vol] 54 U/L Normal 10-60 [facility] Comment on above: Performed By: #### C BC, CMP, PAB #### [place] [address] [place] AST [Catalytic activity/Vol] 39 U/L Normal 10-42 [facility] Comment on above: Performed By: #### C BC, CMP, PAB #### [address] Bilirubin [Mass/Vol] 0.3 mg/dL Normal 0.3-1.2 [facility] Comment on above: Performed By: #### C BC, CMP, PAB #### [facility] [address] [place] [address] Bilirubin,Indirect Not performed Normal [facility] Comment on above: Performed By: #### C BC, CMP, PAB #### [facility] [address] [place] [address] Bilirubin.indirect [Mass/Vol] mg/dL Normal 0.0-0.4 [facility] Comment on above: Performed By: #### C BC, CMP, PAB #### [facility] [address] [place] [address] Globulin (S) [Mass/Vol] 3.0 g/dL Normal [facility] Comment on above: Performed By: #### C BC, CMP, PAB #### [address] Protein [Mass/Vol] 6.0 g/dL Low 6.1-7.9 [facility] Comment on above: Performed By: #### C BC, CMP, PAB #### [address] Hepatitis Acute Panelon 03-0 HBsAg Screen Negative Normal Negative [facility] Comment on above: Performed By: #### C BC, CMP, PAB #### [facility] [address] [place] [address] Hepatitis A Antibody IgM Negative Normal Negative [facility] Comment on above: Performed By: #### C BC, CMP, PAB #### [facility] [address] [place] [address] Hepatitis B Core Antibody IgM Negative Normal Negative [facility] Comment on above: Performed By: #### C BC, CMP, PAB #### [facility] [address] [place] [address] Hepatitis C Virus Antibody 0.2 Normal 0.0-0.9 [facility] Comment on above: Performed By: #### C BC, CMP, PAB #### [facility] [address] [place] [address] Interpretation Hepatitis C Normal . [facility] Comment on above: Result Comment: Dov tijaqueline Not infected with HCV, unless recent infection is suspected or other evidence exists to indicate HCV infection. Performed at: - [facility] [address] [id number] [employer] Teacher[employer] Aide: Pedro Luis José PhD, Phone: [phone] PERFORMED BY: [place] [address] PATHOLOGIST PANTS CUTTER HUY COX M.D. Performed By: #### C BC, CMP, PAB #### [address] US liveron 11-11-[address] [facility] Main [place] [address] [place] [address] Ultrasound Report Signed Patient: Morales Lee MR#: [id number] : 1975 Acct:[id number] Age/Sex: 46 / F ADM Date: 10/29/21 Loc: Room: 6O2857-2 Type: ADM IN Attending Dr: Richard Acevedo [...] Alexandru Pond M.D.11/11/2021 10:23 AM Dictation Location: [place] [address] Tech: Ermelinda Diaz Transcribed By: CORTNEY 11/11/21 1023 Dictated By: Alexandru Pond DO 11/11/21 1018 Signed By: 11/11/21 1023 Normal [facility] Complete Blood Count Auto Di ffon 11-10-2021 Basophils (Bld) [#/Vol] 0.1 10*3/uL Normal 0.0-0.2 [facility] Comment on above: Result Comment: PERF ORMED BY: [place] [address] PATHOLOGIST PANTS CUTTER HUY COX M.D. Performed By: #### C BC #### [address] Basophils/100 WBC (Bld) 1.2 % Normal . [facility] Comment on above: Performed By: #### C BC #### [address] Eosinophils (Bld) [#/Vol] 0.3 10*3/uL Normal 0.0-0.45 [facility] Comment on above: Performed By: #### C BC #### [address] Eosinophils/100 WBC (Bld) 5.9 % Normal . [facility] Comment on above: Performed By: #### C BC #### [address] Erythrocyte distribution width (RBC) [Ratio] 14.2 % Normal 11.9-15.3 [facility] Comment on above: Performed By: #### C BC #### [address] Hematocrit (Bld) [Volume fraction] 37.1 % Normal 34.0-46.4 [facility] Comment on above: Performed By: #### C BC #### [address] Hemoglobin (Bld) [Mass/Vol] 12.3 g/dL Normal 11.8-15.4 [facility] Comment on above: Performed By: #### C BC #### [facility] [address] Lymphocytes (Bld) [#/Vol] 2.0 10*3/uL Normal 1.00-4.8 [facility] Comment on above: Performed By: #### C BC #### [address] Lymphocytes/100 WBC (Bld) 36.5 % Normal . [facility] Comment on above: Performed By: #### C BC #### [address] MCH (RBC) [Entitic mass] 28.6 pg Normal 24.7-34.3 [facility] Comment on above: Performed By: #### C BC #### [address] MCV (RBC) [Entitic vol] 86.5 fL Normal 80-100 [facility] Comment on above: Performed By: #### C BC #### [address] Mean Corpuscular HGB Conc 33.1 g/dL Normal 32.0-35.0 [facility] Comment on above: Performed By: #### C BC #### [address] Monocytes (Bld) [#/Vol] 0.3 10*3/uL Normal 0.0-0.8 [facility] Comment on above: Performed By: #### C BC #### [place] [address] [place] Monocytes/100 WBC (Bld) 5.3 % Normal . [facility] Comment on above: Performed By: #### C BC #### [address] Neutrophils (Bld) [#/Vol] 2.8 10*3/uL Normal 1.8-7.7 [facility] Comment on above: Performed By: #### C BC #### [facility] [address] Neutrophils/100 WBC (Bld) 51.1 % Normal . [facility] Comment on above: Performed By: #### C BC #### [address] Nucleated RBC/100 WBC (Bld) [Ratio] 0.1 % Normal 0-0.5 [facility] Comment on above: Performed By: #### C BC #### [address] Platelet mean volume (Bld) [Entitic vol] 7.8 fL Normal 6.3-10.7 [facility] Comment on above: Performed By: #### C BC #### [address] Platelets (Bld) [#/Vol] 214 10*3/uL Normal 150-450 [facility] Comment on above: Performed By: #### C BC #### [address] RBC (Bld) [#/Vol] 4.28 10*6/uL Normal 3.60-5.00 [facility] Comment on above: Performed By: #### C BC #### [address] WBC (Bld) [#/Vol] 5.4 10*3/uL Normal 4.5-11.0 [facility] Comment on above: Performed By: #### C BC #### [address] Comprehensive Metabolic Pane shree 11-10-2021 Albumin [Mass/Vol] 2.9 g/dL Low 3.2-5.5 [facility] Comment on above: Performed By: #### C BC, CMP, PAB #### [address] Albumin/Globulin [Mass ratio] 0.9 {ratio} Normal [facility] Comment on above: Performed By: #### C BC, CMP, PAB #### [address] [place] [address] [facility] ALP [Catalytic activity/Vol] 201 U/L High 32-92 [facility] Comment on above: Performed By: #### C BC CMP, PAB #### [facility] [address] ALT [Catalytic activity/Vol] 67 U/L High 10-60 [facility] Comment on above: Performed By: #### C BC, CMP, PAB #### [facility] [address] AST [Catalytic activity/Vol] 66 U/L High 10-42 [facility] Comment on above: Performed By: #### C BC CMP, PAB #### [facility] [address] Bilirubin [Mass/Vol] 0.4 mg/dL Normal 0.3-1.2 [facility] Comment on above: Performed By: #### C BC, CMP, PAB #### [address] Calcium [Mass/Vol] 8.7 mg/dL Normal 8.2-10.2 [facility] Comment on above: Performed By: #### C BC, CMP, PAB #### [address] Chloride [Moles/Vol] 100 mmol/L Normal 95-114 [facility] Comment on above: Performed By: #### C BC, CMP, PAB #### [address] CO2 [Moles/Vol] 26.4 mmol/L Normal 22.0-30.0 [facility] Comment on above: Performed By: #### C BC, CMP, PAB #### [place] [address] [place] Creatinine [Mass/Vol] 0.50 mg/dL Normal 0.44-1.03 [facility] Comment on above: Performed By: #### C BC, CMP, PAB #### [place] [address] [place] Creatinine Clr Calc Pharmacy 142.11 [facility] Comment on above: Result Comment: PERF ORMED BY: [place] [address] PATHOLOGIST PANTS CUTTER HUY COX M.D. Performed By: #### C BC, CMP, PAB #### [address] Estimated GFR ( Juliann > 60 [facility] Comment on above: Result Comment: GFR estimated reference range: According to KDOQI guidelines, <60 ml/min/1.73m2 is sufficient to diagnose a patient with chronic kidney disease. Performed By: #### C BC, CMP, PAB #### [address] Estimated GFR (Non- Am > 60 [facility] Comment on above: Performed By: #### C BC, CMP, PAB #### [address] Globulin (S) [Mass/Vol] 3.1 g/dL [facility] Comment on above: Performed By: #### C BC, CMP, PAB #### [address] Glucose [Mass/Vol] 110 mg/dL High 70-100 [facility] Comment on above: Result Comment: [place] Glucose Reference Range is dependent on time and content of last meal. Glucose of more than 200 mg/dL in a nonstressed, ambulatory subject supports the diagnosis of Diabetes Mellitus. ADA recommended reference range Performed By: #### C BC, CMP, PAB #### [address] Potassium [Moles/Vol] 4.0 mmol/L Normal 3.5-5.1 [facility] Comment on above: Performed By: #### C BC, CMP, PAB #### [address] Protein [Mass/Vol] 6.0 g/dL Low 6.1-7.9 [facility] Comment on above: Performed By: #### C BC, CMP, PAB #### [facility] [address] [place] [id number] [place] Sodium [Moles/Vol] 136 mmol/L Normal 136-146 [facility] Comment on above: Performed By: #### C BC, CMP, PAB #### [facility] [address] [place] [id number] [place] Urea nitrogen [Mass/Vol] 8 mg/dL Low 9-23 [facility] Comment on above: Performed By: #### C BC, CMP, PAB #### [facility] [address] [place] [address] [place] Dipstick and Microscopicon 0 11-10-2021 Appearance (U) Turbid Critically abnormal Clear [facility] Comment on above: Order Comment: Name Collection Type:: Alvares Catheter Performed By: #### C BC, CMP, PAB #### [facility] [address] [place] [address] [place] Bacteria,Urine 3+ High None Seen [facility] Comment on above: Order Comment: Name Collection Type:: Alvares Catheter Performed By: #### C BC, CMP, PAB #### [facility] [address] [place] [address] [place] Bilirubin,Urine Negative Normal Negative [facility] Comment on above: Order Comment: Name Collection Type:: Alvares Catheter Performed By: #### C BC, CMP, PAB #### [facility] [address] [place] [id number] [place] Color (U) Yellow Normal Yellow [facility] Comment on above: Order Comment: Name Collection Type:: Alvares Catheter Performed By: #### C BC, CMP, PAB #### [facility] [address] [place] [phone] [place] Glucose Ql (U) Normal Normal Normal [facility] Comment on above: Order Comment: Name Collection Type:: Alvares Catheter Performed By: #### C BC, CMP, PAB #### [facility] [address] [place] [phone] [place] Hyaline Casts,Urine None Seen Normal 0-1 [facility] Comment on above: Order Comment: Name Collection Type:: Alvares Catheter Performed By: #### C BC, CMP, PAB #### [facility] [address] [place] [address] [place] Ketones Ql (U) Negative Normal Negative [facility] Comment on above: Order Comment: Name Collection Type:: Alvares Catheter Performed By: #### C BC, CMP, PAB #### [facility] [address] [place] [address] Leukocyte esterase Test strip Ql (U) 3+ High Negative [facility] Comment on above: Order Comment: Name Collection Type:: Alvares Catheter Performed By: #### C BC, CMP, PAB #### [place] [address] [place] Nitrite,Urine Positive High Negative [facility] Comment on above: Order Comment: Name Collection Type:: Alvares Catheter Performed By: #### C BC, CMP, PAB #### [address] Occult Blood,Urine 2+ High Negative [facility] Comment on above: Order Comment: Name Collection Type:: Alvares Catheter Result Comment: PERF ORMED BY: [place] [address] PATHOLOGIST PANTS CUTTER HUY COX M.D. Performed By: #### C BC, CMP, PAB #### [facility] [address] [place] [address] Other Casts,Urine None Seen Normal None Seen [facility] Comment on above: Order Comment: Name Collection Type:: Alvares Catheter Result Comment: PERF ORMED BY: [place] [address] PATHOLOGIST PANTS CUTTER HUY COX M.D. Performed By: #### C BC, CMP, PAB #### [facility] [address] [place] [address] [place] pH (U) 8.5 [pH] Normal 5.0-9.0 [facility] Comment on above: Order Comment: Name Collection Type:: Alvares Catheter Performed By: #### C BC, CMP, PAB #### [facility] [address] [place] [address] [place] Protein,Urine Negative Normal Negative [facility] Comment on above: Order Comment: Name Collection Type:: Alvares Catheter Performed By: #### C BC, CMP, PAB #### [address] RBC,Urine 1-2 Normal 0-4 [facility] Comment on above: Order Comment: Name Collection Type:: Alvares Catheter Performed By: #### C BC, CMP, PAB #### [address] Specificy [place],Urine 1.006 Normal 1.001-1.030 [facility] Comment on above: Order Comment: Name Collection Type:: Alvares Catheter Performed By: #### C BC, CMP, PAB #### [address] Squamous Epithelial Cell,Urine 3-4 High 0-2 [facility] Comment on above: Order Comment: Name Collection Type:: Alvares Catheter Performed By: #### C BC, CMP, PAB #### [address] Triple Phosphate Crystal,Urine 2+ Normal [facility] Comment on above: Order Comment: Name Collection Type:: Alvares Catheter Performed By: #### C BC, CMP, PAB #### [address] Urobilinogen,Urine Normal Normal Normal [facility] Comment on above: Order Comment: Name Collection Type:: Alvares Catheter Performed By: #### C BC, CMP, PAB #### [place] [address] [place] WBC,Urine 20-49 High 0-4 [facility] Comment on above: Order Comment: Name Collection Type:: Alvares Catheter Performed By: #### C BC, CMP, PAB #### [place] [address] [place] Urine Cultureon 11-10-2021 Bacteria identified Cx Nom (U) ORGANISM: Providencia rettgeri (O:PRORET) [place] Count >100,000 Aerobic JOSE Charge (NUC86) SUSCEPTIBILITY [...] RESISTANT TO ALL B-LACTAM DRUGS. PERFORMED BY: [place] [address] PATHOLOGIST PANTS CUTTER HUY COX M.D. [facility] Comment on above: Performed By: #### C BC, CMP, PAB #### [facility] [address] [place] [address] Basic Metabolic Panelon 03-0 Calcium [Mass/Vol] 8.7 mg/dL Normal 8.2-10.2 [facility] Comment on above: Performed By: #### B MP, CBC #### [address] Chloride [Moles/Vol] 102 mmol/L Normal 95-114 [facility] Comment on above: Performed By: #### B MP, CBC #### [place] [address] [place] CO2 [Moles/Vol] 25.5 mmol/L Normal 22.0-30.0 [facility] Comment on above: Performed By: #### B MP, CBC #### [address] Creatinine [Mass/Vol] 0.71 mg/dL Normal 0.44-1.03 [facility] Comment on above: Performed By: #### B MP, CBC #### [address] Creatinine Clr Calc Pharmacy 100.08 [facility] Comment on above: Result Comment: PERF ORMED BY: [place] [address] PATHOLOGIST PANTS CUTTER HUY COX M.D. Performed By: #### B MP, CBC #### [address] Estimated GFR ( Juliann > 60 [facility] Comment on above: Result Comment: GFR estimated reference range: According to KDOQI guidelines, <60 ml/min/1.73m2 is sufficient to diagnose a patient with chronic kidney disease. Performed By: #### B MP, CBC #### [address] Estimated GFR (Non- Am > 60 [facility] Comment on above: Performed By: #### B MP, CBC #### [address] Glucose [Mass/Vol] 104 mg/dL High 70-100 [facility] Comment on above: Result Comment: [place] om Glucose Reference Range is dependent on time and content of last meal. Glucose of more than 200 mg/dL in a nonstressed, ambulatory subject supports the diagnosis of Diabetes Mellitus. ADA recommended reference range Performed By: #### B MP, CBC #### [address] Potassium [Moles/Vol] 4.1 mmol/L Normal 3.5-5.1 [facility] Comment on above: Performed By: #### B MP, CBC #### [address] Sodium [Moles/Vol] 137 mmol/L Normal 136-146 [facility] Comment on above: Performed By: #### B MP, CBC #### [facility] [address] Urea nitrogen [Mass/Vol] 10 mg/dL Normal 9-23 [facility] Comment on above: Performed By: #### B MP, CBC #### [address] Complete Blood Count Auto Di ffon 11-06-2021 Basophils (Bld) [#/Vol] 0.1 10*3/uL Normal 0.0-0.2 [facility] Comment on above: Result Comment: PERF ORMED BY: [place] [address] PATHOLOGIST PANTS CUTTER HUY COX M.D. Performed By: #### B MP, CBC #### [address] Basophils/100 WBC (Bld) 0.8 % Normal . [facility] Comment on above: Performed By: #### B MP, CBC #### [address] Eosinophils (Bld) [#/Vol] 0.4 10*3/uL Normal 0.0-0.45 [facility] Comment on above: Performed By: #### B MP, CBC #### [address] Eosinophils/100 WBC (Bld) 5.5 % Normal . [facility] Comment on above: Performed By: #### B MP, CBC #### [address] Erythrocyte distribution width (RBC) [Ratio] 14.2 % Normal 11.9-15.3 [facility] Comment on above: Performed By: #### B MP, CBC #### [place] [address] [place] Hematocrit (Bld) [Volume fraction] 36.0 % Normal 34.0-46.4 [facility] Comment on above: Performed By: #### B MP, CBC #### [address] Hemoglobin (Bld) [Mass/Vol] 12.0 g/dL Normal 11.8-15.4 [facility] Comment on above: Performed By: #### B MP, CBC #### [address] Lymphocytes (Bld) [#/Vol] 2.4 10*3/uL Normal 1.00-4.8 [facility] Comment on above: Performed By: #### B MP, CBC #### [address] Lymphocytes/100 WBC (Bld) 35.2 % Normal . [facility] Comment on above: Performed By: #### B MP, CBC #### [address] MCH (RBC) [Entitic mass] 28.9 pg Normal 24.7-34.3 [facility] Comment on above: Performed By: #### B MP, CBC #### [address] MCV (RBC) [Entitic vol] 86.4 fL Normal 80-100 [facility] Comment on above: Performed By: #### B MP, CBC #### [address] Mean Corpuscular HGB Conc 33.4 g/dL Normal 32.0-35.0 [facility] Comment on above: Performed By: #### B MP, CBC #### [address] Monocytes (Bld) [#/Vol] 0.3 10*3/uL Normal 0.0-0.8 [facility] Comment on above: Performed By: #### B MP, CBC #### [address] Monocytes/100 WBC (Bld) 4.8 % Normal . [facility] Comment on above: Performed By: #### B MP, CBC #### [facility] [address] Neutrophils (Bld) [#/Vol] 3.7 10*3/uL Normal 1.8-7.7 [facility] Comment on above: Performed By: #### B MP, CBC #### [facility] [address] Neutrophils/100 WBC (Bld) 53.7 % Normal . [facility] Comment on above: Performed By: #### B MP, CBC #### [facility] [address] Nucleated RBC/100 WBC (Bld) [Ratio] 0.0 % Normal 0-0.5 [facility] Comment on above: Performed By: #### B MP, CBC #### [facility] [address] Platelet mean volume (Bld) [Entitic vol] 8.2 fL Normal 6.3-10.7 [facility] Comment on above: Performed By: #### B MP, CBC #### [facility] [address] [place] [address] [place] Platelets (Bld) [#/Vol] 235 10*3/uL Normal 150-450 [facility] Comment on above: Performed By: #### B MP, CBC #### [facility] [address] [place] [address] [place] RBC (Bld) [#/Vol] 4.17 10*6/uL Normal 3.60-5.00 [facility] Comment on above: Performed By: #### B MP, CBC #### [facility] [address] [place] [address] [place] WBC (Bld) [#/Vol] 6.9 10*3/uL Normal 4.5-11.0 [facility] Comment on above: Performed By: #### B MP, CBC #### [facility] [address] US venous duplex LE BIon US venous duplex LE BI [facility] Main [place] [address] [place] [address] Ultrasound Report Signed Patient: Morales Lee MR#: [id number] : 1975 Acct:[id number] Age/Sex: 46 / F ADM Date: 10/29/21 Loc: Room: [address] [place] [address] Type: ADM IN Attending Dr: Richard Acevedo [...] Carlos Neal MD11/04/2021 11:36 AM Dictation Location: [place] [address] Tech: Natalia Rivas Transcribed By: [facility] 11/04/21 1136 Dictated By: Juan Carlos Neal MD 11/04/21 1135 Signed By: 11/04/21 1136 Normal [facility] Complete Blood Count Auto Di ffon 10-30-2021 Basophils (Bld) [#/Vol] 0.0 10*3/uL Normal 0.0-0.2 [facility] Comment on above: Result Comment: PERF ORMED BY: [place] [address] PATHOLOGIST PANTS CUTTER HUY COX M.D. Performed By: #### C BC, CMP, PAB #### [address] Basophils/100 WBC (Bld) 0.6 % Normal . [facility] Comment on above: Performed By: #### C BC, CMP, PAB #### [facility] [address] [place] [address] [place] Eosinophils (Bld) [#/Vol] 0.4 10*3/uL Normal 0.0-0.45 [facility] Comment on above: Performed By: #### C BC, CMP, PAB #### [facility] [address] [place] [address] [place] Eosinophils/100 WBC (Bld) 4.9 % Normal . [facility] Comment on above: Performed By: #### C BC, CMP, PAB #### [facility] [address] Erythrocyte distribution width (RBC) [Ratio] 14.3 % Normal 11.9-15.3 [facility] Comment on above: Performed By: #### C BC, CMP, PAB #### [facility] [address] Hematocrit (Bld) [Volume fraction] 36.1 % Normal 34.0-46.4 [facility] Comment on above: Performed By: #### C BC, CMP, PAB #### [facility] [address] Hemoglobin (Bld) [Mass/Vol] 12.1 g/dL Normal 11.8-15.4 [facility] Comment on above: Performed By: #### C BC, CMP, PAB #### [facility] [address] [place] [address] [place] Lymphocytes (Bld) [#/Vol] 2.8 10*3/uL Normal 1.00-4.8 [facility] Comment on above: Performed By: #### C BC, CMP, PAB #### [facility] [address] [place] [address] [place] Lymphocytes/100 WBC (Bld) 39.0 % Normal . [facility] Comment on above: Performed By: #### C BC, CMP, PAB #### [facility] [address] [place] [address] [place] MCH (RBC) [Entitic mass] 28.7 pg Normal 24.7-34.3 [facility] Comment on above: Performed By: #### C BC, CMP, PAB #### [facility] [address] MCV (RBC) [Entitic vol] 85.7 fL Normal 80-100 [facility] Comment on above: Performed By: #### C BC, CMP, PAB #### [facility] [address] Mean Corpuscular HGB Conc 33.4 g/dL Normal 32.0-35.0 [facility] Comment on above: Performed By: #### C BC, CMP, PAB #### [facility] [address] Monocytes (Bld) [#/Vol] 0.4 10*3/uL Normal 0.0-0.8 [facility] Comment on above: Performed By: #### C BC, CMP, PAB #### [facility] [address] Monocytes/100 WBC (Bld) 5.2 % Normal . [facility] Comment on above: Performed By: #### C BC, CMP, PAB #### [facility] [address] Neutrophils (Bld) [#/Vol] 3.6 10*3/uL Normal 1.8-7.7 [facility] Comment on above: Performed By: #### C BC, CMP, PAB #### [facility] [address] Neutrophils/100 WBC (Bld) 50.3 % Normal . [facility] Comment on above: Performed By: #### C BC, CMP, PAB #### [facility] [address] [place] [address] [place] Nucleated RBC/100 WBC (Bld) [Ratio] 0.0 % Normal 0-0.5 [facility] Comment on above: Performed By: #### C BC, CMP, PAB #### [facility] [address] Platelet mean volume (Bld) [Entitic vol] 8.1 fL Normal 6.3-10.7 [facility] Comment on above: Performed By: #### C BC, CMP, PAB #### [facility] [address] [place] [address] Platelets (Bld) [#/Vol] 261 10*3/uL Normal 150-450 [facility] Comment on above: Performed By: #### C BC, CMP, PAB #### [address] RBC (Bld) [#/Vol] 4.22 10*6/uL Normal 3.60-5.00 [facility] Comment on above: Performed By: #### C BC, CMP, PAB #### [address] WBC (Bld) [#/Vol] 7.2 10*3/uL Normal 4.5-11.0 [facility] Comment on above: Performed By: #### C BC, CMP, PAB #### [address] Comprehensive Metabolic Pane shree 10-30-2021 Albumin [Mass/Vol] 2.8 g/dL Low 3.2-5.5 [facility] Comment on above: Performed By: #### C BC, CMP, PAB #### [address] Albumin/Globulin [Mass ratio] 1.0 {ratio} Normal [facility] Comment on above: Performed By: #### C BC, CMP, PAB #### [address] ALP [Catalytic activity/Vol] 116 U/L High 32-92 [facility] Comment on above: Performed By: #### C BC, CMP, PAB #### [address] ALT [Catalytic activity/Vol] 20 U/L Normal 10-60 [facility] Comment on above: Performed By: #### C BC, CMP, PAB #### [address] [place] [address] [place] AST [Catalytic activity/Vol] 22 U/L Normal 10-42 [facility] Comment on above: Performed By: #### C BC CMP, PAB #### [facility] [address] Bilirubin [Mass/Vol] 0.5 mg/dL Normal 0.3-1.2 [facility] Comment on above: Performed By: #### C BC CMP, PAB #### [facility] [address] Calcium [Mass/Vol] 8.7 mg/dL Normal 8.2-10.2 [facility] Comment on above: Performed By: #### C JORGE CMP, PAB #### [address] Chloride [Moles/Vol] 105 mmol/L Normal 95-114 [facility] Comment on above: Performed By: #### C BC CMP, PAB #### [address] CO2 [Moles/Vol] 26.8 mmol/L Normal 22.0-30.0 [facility] Comment on above: Performed By: #### C JORGE CMP, PAB #### [address] Creatinine [Mass/Vol] 0.51 mg/dL Normal 0.44-1.03 [facility] Comment on above: Performed By: #### C BC, CMP, PAB #### [place] [address] [place] Creatinine Clr Calc Pharmacy 123.73 [facility] Comment on above: Performed By: #### C BC CMP, PAB #### [address] Estimated GFR ( Juliann > 60 [facility] Comment on above: Result Comment: GFR estimated reference range: According to KDOQI guidelines, <60 ml/min/1.73m2 is sufficient to diagnose a patient with chronic kidney disease. Performed By: #### C BC, CMP, PAB #### [facility] [address] Estimated GFR (Non- Am > 60 Normal [facility] Comment on above: Performed By: #### C DARIUS PATEL, PAB #### [facility] [address] Globulin (S) [Mass/Vol] 2.8 g/dL Normal [facility] Comment on above: Performed By: #### C DARIUS PATEL, PAB #### [address] Glucose [Mass/Vol] 115 mg/dL High 70-100 [facility] Comment on above: Result Comment: [facility] Glucose Reference Range is dependent on time and content of last meal. Glucose of more than 200 mg/dL in a nonstressed, ambulatory subject supports the diagnosis of Diabetes Mellitus. ADA recommended reference range Performed By: #### C DARIUS PATEL, PAB #### [address] Potassium [Moles/Vol] 3.7 mmol/L Normal 3.5-5.1 [facility] Comment on above: Performed By: #### C DARIUS PATEL, PAB #### [address] Protein [Mass/Vol] 5.6 g/dL Low 6.1-7.9 [facility] Comment on above: Performed By: #### C DARIUS PATEL, PAB #### [address] Sodium [Moles/Vol] 140 mmol/L Normal 136-146 [facility] Comment on above: Performed By: #### C JORGE CMP, PAB #### [address] Urea nitrogen [Mass/Vol] 7 mg/dL Low 9-23 [facility] Comment on above: Performed By: #### C BC CMP, PAB #### [place] [address] [place] Dipstick and Microscopicon 0 2-25-2022 Appearance (U) Clear Normal Clear [facility] Comment on above: Order Comment: Name Collection Type:: Voided Performed By: #### A DDONUAPLUS, CUU #### [facility] [address] [place] [address] [place] Bacteria,Urine 4+ High None Seen [facility] Comment on above: Order Comment: Name Collection Type:: Voided Performed By: #### A DDONUAPLUS, CUU #### [facility] [address] [place] [address] [place] Bilirubin,Urine Negative Normal Negative [facility] Comment on above: Order Comment: Name Collection Type:: Voided Performed By: #### A DDONUAPLUS, CUU #### [place] [address] [place] Color (U) Yellow Normal Yellow [facility] Comment on above: Order Comment: Name Collection Type:: Voided Performed By: #### A DDONUAPLUS, CUU #### [place] [address] [place] Glucose Ql (U) Normal Normal Normal [facility] Comment on above: Order Comment: Name Collection Type:: Voided Performed By: #### A DDONUAPLUS, CUU #### [place] [address] [place] Hyaline Casts,Urine 0-8 Normal 0-8 [facility] Comment on above: Order Comment: Name Collection Type:: Voided Result Comment: PERF ORMED BY: [place] [address] PATHOLOGIST PANTS CUTTER HUY COX M.D. Performed By: #### A DDONUAPLUS, CUU #### [facility] [address] [place] [address] [place] Ketones Ql (U) Negative Normal Negative [facility] Comment on above: Order Comment: Name Collection Type:: Voided Performed By: #### A DDONUAPLUS, CUU #### [facility] [address] [place] [address] [place] Leukocyte esterase Test strip Ql (U) 3+ High Negative [facility] Comment on above: Order Comment: Name Collection Type:: Voided Performed By: #### A DDONUAPLUS, CUU #### [address] Nitrite,Urine Positive High Negative [facility] Comment on above: Order Comment: Name Collection Type:: Voided Performed By: #### A DDONUAPLUS, CUU #### [address] Occult Blood,Urine Negative Normal Negative [facility] Comment on above: Order Comment: Name Collection Type:: Voided Result Comment: PERF ORMED BY: [place] [address] PATHOLOGIST PANTS CUTTER HUY COX M.D. Performed By: #### A DDONUAPLUS, CUU #### [address] pH (U) 5.5 [pH] Normal 5.0-9.0 [facility] Comment on above: Order Comment: Name Collection Type:: Voided Performed By: #### A DDONUAPLUS, CUU #### [address] Protein,Urine Negative Normal Negative [facility] Comment on above: Order Comment: Name Collection Type:: Voided Performed By: #### A DDONUAPLUS, CUU #### [address] RBC LM.HPF (Urine sed) [#/Area] 0 /[HPF] Normal 0-4 [facility] Comment on above: Order Comment: Name Collection Type:: Voided Performed By: #### A DDONUAPLUS, CUU #### [place] [address] [place] Specificy [place],Urine 1.012 Normal 1.001-1.030 [facility] Comment on above: Order Comment: Name Collection Type:: Voided Performed By: #### A DDONUAPLUS, CUU #### [place] [address] [place] Squamous Epithelial Cell,Urine 0-1 Normal 0-2 [facility] Comment on above: Order Comment: Name Collection Type:: Voided Performed By: #### A DDONUAPLUS, CUU #### [facility] [address] [place] [address] Urobilinogen,Urine Normal Normal Normal [facility] Comment on above: Order Comment: Name Collection Type:: Voided Performed By: #### A DDONUAPLUS, CUU #### [address] WBC,Urine 20-49 High 0-4 [facility] Comment on above: Order Comment: Name Collection Type:: Voided Performed By: #### A DDONUAPLUS, CUU #### [address] Prealbuminon 10-30-2021 Prealbumin [Mass/Vol] 13.1 mg/dL Low 18.0-38.0 [facility] Comment on above: Result Comment: PERF ORMED BY: [place] [address] PATHOLOGIST PANTS CUTTER HUY COX M.D. Performed By: #### C BC, CMP, PAB #### [address] Urine Cultureon 10-30-2021 Bacteria identified Cx Nom (U) ORGANISM: Escherichia coli (O:ESCCOL) [place] Count >100,000 Aerobic JOSE Charge (NUC86) SUSCEPTIBILITY [...] <2 Tobramycin S <4 Trimethoprim/Sulfamethoxazo le S < S = SUSCEPTIBLE I = INTERMEDIATE R [...] RESISTANT TO ALL B-LACTAM DRUGS. PERFORMED BY: [place] [address] PATHOLOGIST PANTS CUTTER HUY COX M.D. Normal [facility] Comment on above: Performed By: #### A DDONUAPLUS, CUU #### [facility] [address] [place] [address] [facility] SARS-CoV-2 (COVID-19) RNA ADRIÁN+probe Ql (Unsp spec) Negative Normal Negative [facility] Comment on above: Order Comment: Healt hcare Worker?: N Result Comment: Testing for SARS-CoV-2 by RT-PCR This test was developed and its performance characteristics determined by [employer]) and validated at the [facility]. This test has not been FDA [...] is terminated or revoked sooner. PERFORMED BY: [facility] [address] [place] [id number] PATHOLOGIST PANTS CUTTER HUY COX M.D. Performed By: #### C OVID 19 [facility] #### [facility] [address] [place] [id number] [facility] Clinical Event Note-Need for Hospital Bedon [...] of the lumbar region. Provider/Team Contact Info-Pager [id number] Electronic Signatures: Sharmin Guaman (COMPUTED TOMOGRAPHY SCANNER OPERATOR-FLAT CLOTHIER) (Signed 02-Oct-2021 15:19) Authored: Clinical Event Note Last Updated: 02-Oct-2021 15:19 by Sharmin Guaman (COMPUTED TOMOGRAPHY SCANNER OPERATOR-FLAT CLOTHIER) Normal [facility] Clinical Event Note-Need for wheel Chairon [...] home, can self propel or has a pet care assistant to provide assistance. Provider/Team Contact Info-Pager [id number] Electronic Signatures: Sharmin Guaman (COMPUTED TOMOGRAPHY SCANNER OPERATOR-FLAT CLOTHIER) (Signed 02-Oct-2021 15:27) Authored: Clinical Event Note Last Updated: 02-Oct-2021 15:27 by Sharmin Guaman (COMPUTED TOMOGRAPHY SCANNER OPERATOR-FLAT CLOTHIER) Normal [facility] Daily Progress Note-Neurosur jinny 10-02-2021 Daily Progress Note-Neurosurgery Service: Neurosurgery Subjective Data: MORALES LEE is a 46 year old Female who is Hospital Day # 18 and POD #11 for posterior L4-L5 decompression;posterior L4-L5 arthrodesis. Objective Data: Objective Information: T PRBPSpO2 [id number]/8397% Date/Time10/02 1: 1: 1: 1: 1:28 Range(36.2C [...] 2021 10:00 pm000 Oct 01, 2021 2:00 [id number] The Intake and Output Totals for the [...] the note. I personally evaluated the patient [id number] Electronic Signatures: Kenneth Philippe (Resident)) (Signed 02-Oct-2021 06:52) Authored: Service, Subjective Data, Objective Data, Assessment and Plan, Note Completion Lex Frederick) (Signed 02-Oct-2021 15:16) Authored: Note Completion Co-Signer: Service, Subjective Data, Objective Data, Assessment and Plan, Note Completion Last Updated: 02-Oct-2021 15:16 by Lex Frederick) [facility] Clinical Event Note-Discharg e discussionon 10-01-2021 Clinical [...] duration of trip. Electronic Signatures: Ambrocio Izaguirre (COMPUTED TOMOGRAPHY SCANNER OPERATOR-FLAT CLOTHIER) (Signed 01-Oct-2021 17:11) Authored: Clinical Event Note Last Updated: 01-Oct-2021 17:11 by Ambrocio Izaguirre (COMPUTED TOMOGRAPHY SCANNER OPERATOR-FLAT CLOTHIER) Normal [facility] Clinical Event Note-Need for hospital bedon [...] when lying flat. Electronic Signatures: Ambrocio Izaguirre (COMPUTED TOMOGRAPHY SCANNER OPERATOR-FLAT CLOTHIER) (Signed 01-Oct-2021 14:48) Authored: Clinical Event Note Last Updated: 01-Oct-2021 14:48 by Ambrocio Izaguirre (COMPUTED TOMOGRAPHY SCANNER OPERATOR-FLAT CLOTHIER) Normal [facility] Daily Progress Note-Nuha jinny 10-01-2021 Daily Progress Note-Neurosurgery Service: Neurosurgery Subjective Data: MORALES LEE is a 46 year old Female who is Hospital Day # 17 and POD #10 for posterior L4-L5 decompression;posterior L4-L5 arthrodesis. Objective Data: Objective Information: T PRBPSpO2 [id number]/7194% Date/Time10/01 0: 0: 0:381 0:381 0:38 Range(35.6C - 36.8C ) (64 - 96 ) (16 - 19 ) (94 - 138 )/ (59 - 83 ) (92% - 94% ) Pain reported at 09/30 9:00: 2 = Mild ---- Intake and Output ----- Mn/Dy/Year TimeIntakeOutputNet Sep 29, 2021 10:00 [id number] Sep 29, 2021 2:00 [id number] Sep 29, 2021 6:00 am000 The Intake [...] Updated: 01-Oct-2021 10:29 by Lex Frederick) Normal [facility] Daily Progress Note-Neurosurgery This report has been cancelled. Normal [facility] Daily Progress Note-Neurosjudy stearns 09-30-2021 Daily Progress Note-Neurosurgery Service: Neurosurgery Subjective Data: MORALES LEE is a 46 year old Female who is Hospital Day # 15 and POD #8 for posterior L4-L5 decompression;posterior L4-L5 arthrodesis. Objective Data: Objective Information: T PRBPSpO2 [id number]/7393% Date/Time09/29 16: 16: 16: 16: 16:00 Range(36C - 36.7C ) (67 - 86 ) (17 - 20 ) (94 - 153 )/ (15 - 113 ) (93% - 98% ) Pain reported at 09/29 9:56: 5 = Moderate ---- Intake and Output ----- Mn/Dy/Year TimeIntakeOutputNet Sep 29, 2021 2:00 [id number] Sep 29, 2021 6:00 am000 Sep 28, 2021 10:00 [id number] The Intake and Output Totals for the [...] the note. I personally evaluated the patient [id number] Electronic Signatures: Lex Frederick) (Signed 30-Sep-2021 11:18) Authored: Note Completion Co-Signer: Service, Subjective Data, Objective Data, Assessment and Plan, Note Completion Jaya Mosquera (Resident)) (Signed 30-Sep-2021 03:18) Authored: Service, Subjective Data, Objective Data, Assessment and Plan, Note Completion Last Updated: 30-Sep-2021 11:18 by Lex Frederick) Normal [facility] Rehab Xpuj-ag-usngucfed - co -tx /c OT to address multidiscipon 09-30-2021 Rehab Qymo-ll-hdkjazrbr - co-tx /c OT to address multidiscip Rehab: Info: Disciplinephysical physical therapy resident Mode of Treatmentphysical therapy; co-treatment; co-tx /c OT to address multidisciplinary functional needs and maximize pt's safety. Time IN12:15 Time OUT12:55 Total Treatment [id number] Patient in ... at end of sessionbed, 3 railings up; alarm off; not on at start of visit Communicated with ... at end of sessionbedside nurse Patient Effortgood Symptoms Noted During/After Treatmentfatigue Treatment Considerations/CommentsExte nsive discussion /c amongst GOLF COACH, OT, and pt regarding her current physical [...] rolling right; rolling left; scooting/bridging Roll Left Rumely (Bed Mobility)moderate assist (50% patient effort); 1 person assist; nonverbal cues (demo/gesture); verbal cues Roll Right Rumely (Bed Mobility)moderate assist (50% patient effort); 1 person assist; nonverbal cues (demo/gesture); verbal cues Scoot/Bridge Rumely (Bed Mobility)maximum assist (25% patient effort); 2 person assist; nonverbal cues (demo/gesture); verbal cues Tqfoul-pt-Pju Rumely (Bed Mobility)maximum assist (25% patient effort); 2 person assist; nonverbal cues (demo/gesture); verbal cues Eiv-pl-Ovtkxh Rumely (Bed Mobility)maximum assist (25% patient effort); 2 person assist; nonverbal cues (demo/gesture); verbal cues Assistive Device (Bed Mobility)bed rails; draw sheet Comment, Bed MobilityPt showing improvement in her ability to roll, performing 50% of AROM to achieve full rolling position. Transfer Assessment/Interventionssit to stand transfer; stand to sit transfer Comment, TransfersToday's session, OT and I utilized TNC Stand device to assist pt into full [...] Pt repositioned back to sitting EOB. Sit-Stand Rumely (Transfers)dependent (less than 25% patient effort) Sit-Stand Assistive Device (Transfers)mechanical lift/aid Stand-Sit Rumely (Transfers)dependent (less than 25% patient effort) Stand-Sit [...] Score8 Short Term Goals: Bed Mobility: Date [id number] Bed Mobility: Rumely Level Goalminimum assist (75% patients effort) Bed Mobility: Physical Assist Level Goal1-person assist, verbal cues Bed Mobility: Time Frame for Goal2 wks Transfer: Established [id number] Transfer: Transfer Type Akvocmm-oc-wxizk/chair-to-b ed; mla-rr-wtsuw/xvivk-hp-yfd Transfer: Rumely Level Goalmoderate assist (50% patients effort) Transfer: Physical Assist Level Goal1-person assist; verbal cues Transfer: Assistive Device Goalrolling walker Transfer: Time Frame for Goal2 wks Gait: Established [id number] Gait: Rumely Level Goalmoderate assist (50% patients (more content not included)... Normal [facility] Rehab Note-manager occupational apy - co-tx with PT to maximizeon 09-30-2021 Rehab Note-occupational therapy - co-tx with PT to maximize Rehab: Info: Disciplineoccupational therapist Mode of Treatmentoccupational therapy; co-tx with PT to maximize pt's mobility and safety. Time IN12:15 Time OUT12:55 Total Treatment [id number] Patient in ... at end of sessionbed, [...] ling right; rolling left; scooting/bridging Roll Left Rumely (Bed Mobility)moderate assist (50% patient effort); 1 person assist; nonverbal cues (demo/gesture); verbal cues Roll Right Rumely (Bed Mobility)moderate assist (50% patient effort); 1 person assist; nonverbal cues (demo/gesture); verbal cues Scoot/Bridge Rumely (Bed Mobility)maximum assist (25% patient effort); 2 [...] lower body dressing; upper body dressing; bathing Rumely Level (Bathing)set up; verbal cues; moderate assist (50% patient effort); 1 person assist Comment (Bathing)anticipated due to impaired balance, strength, and pain. Rumely Level (Upper Body Dressing)set up; verbal cues; moderate assist (50% patient effort) Comment (Upper Body Dressing)anticipated due to impaired balance, strength, and pain. Rumely Level (Lower Body Dressing)don; socks; dependent (less than 25% patient effort) Position (Lower Body Dressing)supine Rumely Level (Grooming)modified independence Comment (Grooming)Pt observed applying Orajel to gums, able to manage packaging, cap un/screwing, and application. Rumely Level (Feeding)modified independence Comment (Feeding)Pt able to retrieve OJ cup from tray table at R side, bring to mouth, and drink appropriately. Rumely Level (Toileting)dependent (less than 25% patient effort); [...] Score15 Short Term Goals: Bed Mobility: Date [id number] Bed Mobility: Rumely Level Goalcontact guard Bed Mobility: Physical Assist Level Goalset-up, verbal cues Bed Mobility: Time Frame for Goal2 wks Transfer: Established [id number] Transfer: Transfer Type Taylpbn-bq-pduev/chair-to-b ed; qbb-za-fnvab/cnlrb-lh-guh; toilet Transfer: Rumely Level Goalminimum assist (75% patients effort) Transfer: Physical Assist Level Goalset-up; verbal cues; 1-person assist Transfer: Assistive Device GoalLRD Transfer: Time Frame for Goal2 wks Balance: Established [id number] Balance: Goal DetailsPt will perform ADL while reaching outside MADDIE and returning self to midline >8 minutes with set-up assist, SBA, and minimal verbal cues for safety. Enrique (more content not included)... Normal [facility] Daily Progress Note-Neurosur jinny 09-29-2021 Daily Progress Note-Neurosurgery Service: Neurosurgery Subjective Data: MORALES LEE is a 46 year old Female who is Hospital Day # 14 and POD #7 for posterior L4-L5 decompression;posterior L4-L5 arthrodesis. Objective Data: Objective Information: T PRBPSpO2 [id number]/6993% Date/Time09/28 4: 8: 8: 8: 8:00 Range(36C [...] 2021 6:00 am000 Sep 27, 2021 10:00 [id number] Sep 27, 2021 2:00 [id number] The Intake and Output Totals for the last 24 hours are: IntakeOutputNet [id number] Physical Exam by System: Neurological: A&Ox3 RUE [...] the note. I personally evaluated the patient [id number] Electronic Signatures: Lex Frederick) (Signed 29-Sep-2021 09:23) Authored: Note Completion Co-Signer: Service, Subjective Data, Objective Data, Assessment and Plan, Note Completion Jaya Mosquera (Resident)) (Signed 29-Sep-2021 03:01) Authored: Service, Subjective Data, Objective Data, Assessment and Plan, Note Completion Last Updated: 29-Sep-2021 09:23 by Lex Frederick) [facility] Rehab Jgrq-do-hailfeqqj - co -tx /c OT to address multidiscipon 09-29-2021 Rehab Tyid-rr-ggjgszqrh - co-tx /c OT to address multidiscip Rehab: Info: Disciplinephysical physical therapy resident Mode of Treatmentphysical therapy; co-treatment; co-tx /c OT to address multidisciplinary functional needs and maximize pt's safety. Time IN14:30 Time OUT15:40 Total Treatment [id number] Patient in ... at end of sessionbed, [...] to sit; sit to supine Roll Left Rumely (Bed Mobility)maximum assist (25% patient effort); 2 person assist; verbal cues; nonverbal cues (demo/gesture) Roll Right Rumely (Bed Mobility)maximum assist (25% patient effort); 2 person assist; verbal cues; nonverbal cues (demo/gesture) Scoot/Bridge Rumely (Bed Mobility)maximum assist (25% patient effort); 2 person assist; nonverbal cues (demo/gesture); verbal cues Ozyhac-ro-Xav Rumely (Bed Mobility)maximum assist (25% patient effort); 2 person assist; nonverbal cues (demo/gesture); verbal cues Hze-lw-Lvnnjr Rumely (Bed Mobility)verbal cues; nonverbal cues (demo/gesture); maximum [...] Pt repositioned back to sitting EOB. Sit-Stand Rumely (Transfers)dependent (less than 25% patient effort) Sit-Stand Assistive Device (Transfers)mechanical lift/aid Stand-Sit Rumely (Transfers)dependent (less than 25% patient effort) Stand-Sit [...] Score8 Short Term Goals: Bed Mobility: Date [id number] Bed Mobility: Rumely Level Goalminimum assist (75% patients effort) Bed Mobility: Physical Assist Level Goal1-person assist, verbal cues Bed Mobility: Time Frame for Goal2 wks Transfer: Established [id number] Transfer: Transfer Type Vjuwzcx-bu-ybahw/chair-to-b ed; kjy-rw-npoox/amnpx-jx-mbk Transfer: Rumely Level Goalmoderate assist (50% patients effort) Transfer: Physical Assist Level Goal1-person assist; verbal cues Transfer: Assistive Device Goalrolling walker Transfer: Time Frame for Goal2 wks Gait: Established [id number] Gait: Rumely Level Goalmoderate assist (50% patients effort) Gait: Physical Assist Level1-person assist; verbal cues Gait: Assistive Device Goalrolling walker Gait: Distance Goal15 feet Gait: Time Frame for Goal2 wks Balance: Established [id number] Balance: Goal DetailsSitting EOB 20 minutes with 0-1 UE support, SBA for static sitting, CGA for dynamic. Standing 1 minute with FWW and CGA Education: Learnerpatient Topicrehab plan of care; discharge recommendations including destination and/or equipment Outcome Summary: Progress: Physical Therapyprogress towards functional goals is fair Outcome (more content not included)... Normal [facility] Rehab Note-manager occupational apy - co-tx with PT to maximizeon 09-29-2021 Rehab Note-occupational therapy - co-tx with PT to maximize Rehab: Info: Disciplineoccupational therapist Mode of Treatmentoccupational therapy; co-tx with PT to maximize pt's mobility and safety. Time IN14:30 Time OUT15:40 Total Treatment [id number] Patient in ... at end of sessionbed, [...] to sit; sit to supine Roll Left Rumely (Bed Mobility)maximum assist (25% patient effort); 2 person assist; verbal cues; nonverbal cues (demo/gesture); multiple rolls to adjust harness Roll Right Rumely (Bed Mobility)maximum assist (25% patient effort); 2 person assist; verbal cues; nonverbal cues (demo/gesture); multiple rolls to adjust harness Scoot/Bridge Rumely (Bed Mobility)maximum assist (25% patient effort); 2 person assist; nonverbal cues (demo/gesture); verbal cues; boost HOB Qxeyfk-nq-Mgj Rumely (Bed Mobility)maximum assist (25% patient effort); 2 person assist; nonverbal cues (demo/gesture); verbal cues Knd-td-Koxgwj Rumely (Bed Mobility)verbal cues; nonverbal cues (demo/gesture); maximum assist (25% patient effort); 2 person assist Assistive Device (Bed Mobility)draw sheet; bed rails Transfer Assessment/Interventionssit to stand transfer; stand to sit transfer Sit-Stand Rumely (Transfers)dependent (less than 25% patient effort) Sit-Stand Assistive Device (Transfers)mechanical lift/aid; Faye Plus Stand-Sit Rumely (Transfers)dependent (less than 25% patient effort) Stand-Sit Assistive Device (Transfers)mechanical lift/aid; Faye Plus Safety Issues Impacting Function (Mobility)awareness of need for assistance; insight into deficits/self awareness Impairments Impacting Function (Mobility)endurance/activit y tolerance; strength; balance; coordination; postural/trunk control ADL: BADL Assessment/Interventiontoil eting; feeding; grooming; lower body dressing; upper body dressing; bathing Rumely Level (Bathing)set up; verbal cues; moderate assist (50% patient effort); 1 person assist Comment (Bathing)anticipated due to impaired balance, strength, and pain. Rumely Level (Upper Body Dressing)set up; verbal cues; moderate assist (50% patient effort) Comment (Upper Body Dressing)anticipated due to impaired balance, strength, and pain. Rumely Level (Lower Body Dressing)don; socks; dependent (less than 25% patient effort) Position (Lower Body Dressing)supine Rumely Level (Grooming)set up; contact guard Comment (Grooming)anticipated due to impaired balance, strength, and pain. Rumely Level (Feeding)set up; modified independence Comment (Feeding)anticipated Rumely Level (Toileting)dependent (less than 25% patient effort); purewick Impairments, BADL Safety/Performancebalance; cognition; endurance/activity tolerance; strength; trunk/postural control Cognitive Impairments, BADL Safety/Performanceawareness , need for assistance; insight into deficits/self awareness; judgment; problem solving/reasoning Motor: Sitting, Static (Balance)good balance SBA Sitting, Dynamic (Balance)fair balance CGA Dkb-uu-Bkxcx (Balance)poor balance Total A via Faye Plus lift Standing, Static (Balance)poor balance Max A x1 - via Faye Plus Standing, Dynamic (Balance)unable to balance Balance ActivitiesPt sat EOB ~20 minutes throughout session primarily with SB (more content not included)... Normal [facility] Clinical Event Note-Medical Assessmenton 09-28-2021 Clinical [...] oil enema alternating with tap water enema [id number] - Bisacodyl suppository QHS Daily - Monitor [...] for wound check 10/07/21 at 10:15 am, [facility] 5th floor - F/U with Dr. Frederick [...] note 45 minutes; Electronic Signatures: Concetta Shi (COMPUTED TOMOGRAPHY SCANNER OPERATOR-FLAT CLOTHIER) (Signed 28-Sep-2021 14:31) Authored: Clinical Event Note Last Updated: 28-Sep-2021 14:31 by Concetta Shi (COMPUTED TOMOGRAPHY SCANNER OPERATOR-FLAT CLOTHIER) Normal [facility] Daily Progress Note-Gastroen terologyon 09-28-2021 Daily Progress Note-Gastroenterolog y Service: Gastroenterology Subjective Data: MORALES LEE is a 46 year old Female who is Hospital Day # 14 and POD #7 for posterior L4-L5 decompression;posterior L4-L5 arthrodesis. No events overnight. Had one bowel movement this am. Otherwise no complaints. Objective Data: Objective Information: T PRBPSpO2 [id number]/6993% Date/Time09/28 4:001 8: 8: 8: 8:00 Range(36C - 36.6C [...] 2021 6:00 am000 Sep 27, 2021 10:00 [id number] Sep 27, 2021 2:00 [id number] The Intake and Output Totals for the last 24 hours are: IntakeOutputNet [id number] Physical Exam by System: Constitutional: Constitutional: A&Ox3, [...] recommend tr (more content not included)... Normal [facility] Daily Progress Note-Neurosjudy jinny 09-28-2021 Daily Progress Note-Neurosurgery Service: Neurosurgery Subjective Data: MORALES LEE is a 46 year old Female who is Hospital Day # 14 and POD #7 for posterior L4-L5 decompression;posterior L4-L5 arthrodesis. Objective Data: Objective Information: T PRBPSpO2 [id number]/4893% Date/Time09/28 4: 4: 4: 4: 4:00 Range(36C - 36.6C ) (72 - 87 ) (15 - 22 ) (92 - 153 )/ (48 - 113 ) (92% - 99% ) As of 27-Sep-2021 22:00:00, patient is on 2 L/min of oxygen via nasal cannula. Pain reported at 09/27 22:00: 0 = None ---- Intake and Output ----- Mn/Dy/Year TimeIntakeOutputNet Sep 26, 2021 10:00 [id number] Sep 26, 2021 2:00 [id number] The Intake and Output Totals for the last 24 hours are: IntakeOutputNet [id number] Physical Exam by System: Neurological: A&Ox3 RUE [...] the note. I personally evaluated the patient [id number] Electronic Signatures: Fidel Maciel (Resident)) (Signed 28-Sep-2021 05:47) Authored: Service, Subjective Data, Objective Data, Assessment and Plan, Note Completion Lex Frederick) (Signed 28-Sep-2021 07:32) Authored: Note Completion Co-Signer: Service, Subjective Data, Objective Data, Assessment and Plan, Note Completion Last Updated: 28-Sep-2021 07:32 by Lex Frederick) Normal [facility] RENAL FUNCTION PANELon 09-28 Albumin [Mass/Vol] 3.1 g/dL Low 3.4 - 5.0 [facility] Comment on above: Performed By: #### R ENAL ####[id number] [place] [address] Anion gap [Moles/Vol] 17 mmol/L Normal 10 - 20 [facility] Comment on above: Performed By: #### R ENAL ####[id number] [place] [address] Calcium [Mass/Vol] 8.4 mg/dL Low 8.6 - 10.6 [facility] Comment on above: Performed By: #### R ENAL ####[id number] [place] [address] Chloride [Moles/Vol] 102 mmol/L Normal 98 - 107 [facility] Comment on above: Performed By: #### R ENAL ####[id number] [place] [address] Creatinine [Mass/Vol] 0.47 mg/dL Low 0.50 - 1.05 [facility] Comment on above: Performed By: #### R ENAL ####[id number] [place] [address] eGFR FEMALE >90 Normal >90 [facility] Comment on above: Result Comment: CALC ULATIONS OF ESTIMATED GFR ARE PERFORMED USING THE 2020 CKD-EPI STUDY REFIT EQUATION WITHOUT THE RACE VARIABLE FOR THE IDMS-TRACEABLE CREATININE METHODS. https://jasn.asnjournals.org/content//ASN.5765412 988 Performed By: #### R ENAL ####[id number] [place] [address] Glucose [Mass/Vol] 74 mg/dL Normal 74 - 99 [facility] Comment on above: Performed By: #### R ENAL ####[id number] [place] [address] HCO3 (Bld) [Moles/Vol] 27 mmol/L Normal 21 - 32 [facility] Comment on above: Performed By: #### R ENAL ####[id number] [place] [address] Phosphate [Mass/Vol] 3.4 mg/dL Normal 2.5 - 4.9 [facility] Comment on above: Result Comment: The performance characteristics of phosphorus testing in heparinized plasma have been validated by the individual laboratory site where testing is performed. Testing on heparinized plasma is not approved by the FDA; however, such approval is not necessary. Performed By: #### R ENAL ####[id number] [place] [address] Potassium [Moles/Vol] 3.7 mmol/L Normal 3.5 - 5.3 [facility] Comment on above: Performed By: #### R ENAL ####[id number] [place] [address] Sodium [Moles/Vol] 142 mmol/L Normal 136 - 145 [facility] Comment on above: Performed By: #### R ENAL ####[id number] [place] [address] Urea nitrogen [Mass/Vol] 6 mg/dL Normal 6 - 23 [facility] Comment on above: Performed By: #### R ENAL ####[id number] [place] [address] Radiologyon 09-28-2021 XR Abdomen AP Normal [facility] [facility] [facility] Work Phone: Rehab Note-attemptedon 09-28 Rehab Note-attempted Rehab: Info: Disciplinephysical physical therapy resident Mode of Treatmentattempted Time IN15:30 Reason Treatment Not Performedpatient/family declined treatment, not feeling well Treatment Considerations/CommentsPt declined therapy at this time 2* increased fatigue, nausea. Pt stated NO! NO! NO! upon therapists arrival, even /c increased encouragement. Will reattempt as schedule allows. Short Term Goals: Bed Mobility: Date [id number] Bed Mobility: Rumely Level Goalminimum assist (75% patients effort) Bed Mobility: Physical Assist Level Goal1-person assist, verbal cues Bed Mobility: Time Frame for Goal2 wks Transfer: Established [id number] Transfer: Transfer Type Zqujgzc-ln-lnxsp/chair-to-b ed; xkp-cy-vtoxd/uqywb-bv-sir Transfer: Rumely Level Goalmoderate assist (50% patients effort) Transfer: Physical Assist Level Goal1-person assist; verbal cues Transfer: Assistive Device Goalrolling walker Transfer: Time Frame for Goal2 wks Gait: Established [id number] Gait: Rumely Level Goalmoderate assist (50% patients effort) Gait: Physical Assist Level1-person assist; verbal cues Gait: Assistive Device Goalrolling walker Gait: Distance Goal15 feet Gait: Time Frame for Goal2 wks Balance: Established [id number] Balance: Goal DetailsSitting EOB 20 minutes with 0-1 UE support, SBA for static sitting, CGA for dynamic. Standing 1 minute with FWW and CGA Electronic Signatures: Yosi Campbell (GOLF COACH) (Signed 28-Sep-2021 15:32) Entered: Short Term Goals, Info Authored: Deon, Short Term Goals Boone Broussard (PT) (Signed 01-Oct-2021 09:01) Co-Signer: Short Term Goals, Info Last Updated: 01-Oct-2021 09:01 by Boone Broussard (PT) Normal [facility] Rehab Note-attempted Rehab: Info: Mode of [...] 28-Sep-2021 15:28 by Silvana Marshall (OT) Normal [facility] Renal Function Panelon 09-28 Albumin BCP dye [Mass/Vol] 3.1 g/dL below low threshold 3.4 - 5.0 [facility]astroen terology-[place] [facility] Work Phone: Anion gap [Moles/Vol] 17 mmol/L 10 - 20 [facility]astroen terology-[place] [facility] Work Phone: Calcium [Mass/Vol] 8.4 mg/dL below low threshold 8.6 - 10.6 [facility]astroen terology-[place] [facility] [facility] Work Phone: Chloride [Moles/Vol] 102 mmol/L 98 - 107 [facility]-G astroen terology-[place] [facility] Work Phone: CO2 [Moles/Vol] 27 mmol/L 21 - 32 [facility]-Gastro en terology-[place] [facility] Work Phone: [phone] Creatinine [Mass/Vol] 0.47 mg/dL below low threshold See Below [facility]en [facility]ology[facility] [facility] [facility] Work Phone: Comment on above: Reference Range: 0.5 0 - 1.05 Glucose [Mass/Vol] 74 mg/dL 74 - 99 [facility]-Gas troen terology-[place] [facility] Work Phone: Phosphate [Mass/Vol] 3.4 mg/dL 2.5 - 4.9 [facility] astroen terology-[place] [facility] Work Phone: [phone] Comment on above: The performance arsalan acteristics [...] RACE VARIABLE FOR THE IDMS-TRACEABLE CREATININE METHODS.https://jasn.asnjournals.org/content/early//ASN .3421138497 TH ABDOMEN AP VIEWon 022 ABDOMEN AP VIEW Patient Name: MORALES LEE STUDY: ABDOMEN AP VIEW; 09/28/2021 1:22 pm INDICATION: Abd. dist. . COMPARISON: 09/27/2021 abdominal radiograph. ACCESSION NUMBER(S): [id number] ORDERING CLINICIAN: CONCETTA SHI FINDINGS: Two AP [...] as stated. This study was interpreted at [facility], [place], [place]. 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 Has been on scheduled bowel regimen [...] penicillin: Unknown Objective: Objective Information: T PRBPSpO2 [id number]/82931% Date/Time09/27 4: 4: 4:001 4:00 Range (76 - 82 ) (19 [...] C6-7 ACDFF, (more content not included)... Normal [facility] Daily Progress Note-Neurosur leonidasyon 09-27-2021 Daily Progress Note-Neurosurgery Service: Neurosurgery Subjective Data: MORALES LEE is a 46 year old Female who is Hospital Day # 13 and POD #6 for posterior L4-L5 decompression;posterior L4-L5 arthrodesis. Objective Data: Objective Information: T PRBPSpO2 [id number]/30086% Date/Time09/26 11:0809/27 4: 4: 4: 4:00 Range(37C [...] 2021 6:00 am000 Sep 26, 2021 10:00 [id number] Sep 26, 2021 2:00 [id number] The Intake and Output Totals for the last 24 hours are: IntakeOutputNet [id number] Physical Exam by System: Neurological: A&Ox3 RUE [...] the note. I personally evaluated the patient [id number] Electronic Signatures: Chaparro Umana (Resident)) (Signed 27-Sep-2021 06:11) Authored: Service, Subjective Data, Objective Data, Assessment and Plan, Note Completion Natalia Palacios) (Signed 08-Oct-2021 14:31) Authored: Note Completion Co-Signer: Service, Subjective Data, Objective Data, Assessment and Plan, Note Completion Last Updated: 08-Oct-2021 14:31 by Natalia Palacios) Normal [facility] MAGNESIUMon 09-27-2021 Magnesium [Mass/Vol] 1.80 mg/dL Normal 1.60 - 2.40 [facility] Comment on above: Performed By: #### C BC #### [facility] [id number] [place] [address] Magnesium, Serumon Magnesium [Mass/Vol] 1.80 mg/dL See Below [facility]-G astroen terology-[facility] 6 [facility] Work Phone: Comment on above: Reference Range: 1.6 0 - 2.40 RENAL FUNCTION PANELon 09-27 Albumin [Mass/Vol] 3.3 g/dL Low 3.4 - 5.0 [facility] Comment on above: Performed By: #### R ENAL #### [facility] [address] [place] [address] Anion gap [Moles/Vol] 17 mmol/L Normal 10 - 20 [facility] Comment on above: Performed By: #### R ENAL #### [facility] [address] [place] [address] Calcium [Mass/Vol] 8.5 mg/dL Low 8.6 - 10.6 [facility] Comment on above: Performed By: #### R ENAL #### [facility] [address] [place] [address] Chloride [Moles/Vol] 98 mmol/L Normal 98 - 107 [facility] Comment on above: Performed By: #### R ENAL #### [facility] [address] [place] [address] Creatinine [Mass/Vol] 0.44 mg/dL Low 0.50 - 1.05 [facility] Comment on above: Performed By: #### R ENAL #### [facility] [address] [place] [address] eGFR FEMALE >90 Normal >90 [facility] Comment on above: Result Comment: CALC ULATIONS OF ESTIMATED GFR ARE PERFORMED USING THE 2020 CKD-EPI STUDY REFIT EQUATION WITHOUT THE RACE VARIABLE FOR THE IDMS-TRACEABLE CREATININE METHODS. https://jasn.asnjournals.org/content//ASN.3022591 988 Performed By: #### R ENAL #### [facility] [address] [place] [address] Glucose [Mass/Vol] 91 mg/dL Normal 74 - 99 [facility] Comment on above: Performed By: #### R ENAL #### [facility] [address] [place] [address] HCO3 (Bld) [Moles/Vol] 26 mmol/L Normal 21 - 32 [facility] Comment on above: Performed By: #### R ENAL #### [facility] [address] [place] [address] Phosphate [Mass/Vol] 4.0 mg/dL Normal 2.5 - 4.9 [facility] Comment on above: Result Comment: The performance characteristics of phosphorus testing in heparinized plasma have been validated by the individual laboratory site where testing is performed. Testing on heparinized plasma is not approved by the FDA; however, such approval is not necessary. Performed By: #### R ENAL #### [facility] [address] [place] [address] Potassium [Moles/Vol] 4.1 mmol/L Normal 3.5 - 5.3 [facility] Comment on above: Performed By: #### R ENAL #### [facility] [address] [place] [address] Sodium [Moles/Vol] 137 mmol/L Normal 136 - 145 [facility] Comment on above: Performed By: #### R ENAL #### [facility] [address] [place] [address] Urea nitrogen [Mass/Vol] 6 mg/dL Normal 6 - 23 [facility] Comment on above: Performed By: #### R ENAL #### [facility] [address] [place] [address] Radiologyon 09-27-2021 XR Abdomen AP Normal [facility]ology-[place] [facility] Work Phone: Renal Function Panelon 09-27 Albumin BCP dye [Mass/Vol] 3.3 g/dL below low threshold 3.4 - 5.0 [facility]en [facility]ology[facility] [facility] [facility] Work Phone: Anion gap [Moles/Vol] 17 mmol/L 10 - 20 [facility]ology[facility] [facility] [facility] Work Phone: Calcium [Mass/Vol] 8.5 mg/dL below [...] RACE VARIABLE FOR THE IDMS-TRACEABLE CREATININE METHODS.https://jasn.asnjournals.org/content/early//ASN .4993954134 TH ABDOMEN AP VIEWon 022 ABDOMEN AP VIEW Patient Name: MORALES LEE STUDY: ABDOMEN AP VIEW; 09/27/2021 2:33 am INDICATION: vomiting, constipation . COMPARISON: None. ACCESSION NUMBER(S): [id number] ORDERING CLINICIAN: FIDEL MACIEL FINDINGS: 2 AP [...] as stated. This study was interpreted at [facility], [place], [place]. Electronically signed by: DWIGHT MOY MD [facility] Daily Progress Note-Nuha stearns 09-26-2021 Daily Progress Note-Neurosurgery Service: Neurosurgery Subjective Data: MORALES LEE is a 46 year old Female who is Hospital Day # 12 and POD #5 for posterior L4-L5 decompression;posterior L4-L5 arthrodesis. Objective Data: Objective Information: T PRBPSpO2 [id number]/8299% Date/Time09/25 17: 12: 17: 17:08 Range (68 - 98 ) (21 - 23 ) (118 - 136 )/ (69 - 82 ) (92% - 99% ) Pain reported at 09/26 3:00: sleeping ---- Intake and Output ----- Mn/Dy/Year TimeIntakeOutputNet Sep 24, 2021 10:00 [id number] Sep 24, 2021 2:00 [id number] Sep 24, 2021 6:00 [id number] The Intake and Output Totals for the last 24 hours are: IntakeOutputNet [id number] Physical Exam by System: Neurological: A&Ox3 RUE [...] the note. I personally evaluated the patient [id number] Electronic Signatures: Jaya Mosquera (Resident)) (Signed 26-Sep-2021 07:08) Authored: Service, Subjective Data, Objective Data, Assessment and Plan, Note Completion Natalia Palacios) (Signed 08-Oct-2021 14:10) Authored: Note Completion Co-Signer: Service, Subjective Data, Objective Data, Assessment and Plan, Note Completion Last Updated: 08-Oct-2021 14:10 by Natalia Palacios) Normal [facility] Clinical Event Note-POD 4 / Abdominal [...] for wound check 10/07/21 at 10:15 am, [facility] 5th floor - F/U with Dr. Frederick [...] plan of care. Electronic Signatures: Concetta Shi (COMPUTED TOMOGRAPHY SCANNER OPERATOR-FLAT CLOTHIER) (Signed 25-Sep-2021 13:30) Authored: Clinical Event Note Last Updated: 25-Sep-2021 13:30 by Concetta Shi (COMPUTED TOMOGRAPHY SCANNER OPERATOR-FLAT CLOTHIER) Normal [facility] Daily Progress Note-Nuha stearns 09-25-2021 Daily Progress Note-Neurosurgery Service: Neurosurgery Subjective Data: MORALES LEE is a 46 year old Female who is Hospital Day # 11 and POD #4 for posterior L4-L5 decompression;posterior L4-L5 arthrodesis. Objective Data: Objective Information: T PRBPSpO2 [id number]/6799% Date/Time09/24 16: 16: 16: 16:00 Range (68 - 78 ) (18 - 19 ) (102 - 117 )/ (57 - 73 ) (95% - 99% ) As of 24-Sep-2021 21:40:00, patient is on 2 L/min of oxygen via nasal cannula. Pain reported at 09/24 21:40: 8 = Severe ---- Intake and Output ----- Mn/Dy/Year TimeIntakeOutputNet Sep 23, 2021 10:00 [id number] Sep 23, 2021 6:00 [id number] The Intake and Output Totals for the last 24 hours are: IntakeOutchinle [facility] facilityNet [id number] Physical Exam by System: Neurological: A&Ox3 RUE [...] the note. I personally evaluated the patient [id number] Electronic Signatures: Lex Frederick) (Signed 25-Sep-2021 11:57) Authored: Note Completion Co-Signer: Service, Subjective Data, Objective Data, Assessment and Plan, Note Completion Alfredo Hendrickson (Resident)) (Signed 25-Sep-2021 05:56) Authored: Service, Subjective Data, Objective Data, Assessment and Plan, Note Completion Last Updated: 25-Sep-2021 11:57 by Lex Frederick) [facility] Rehab Giwu-tl-nfdenlrbr - co -tx /c OT to address multidiscipon 09-25-2021 Rehab Fnaw-cz-cmpawhcww - co-tx /c OT to address multidiscip Rehab: Info: Disciplinephysical physical therapy resident Mode of Treatmentphysical therapy; co-treatment; co-tx /c OT to address multidisciplinary functional needs and maximize pt's safety. Time IN15:05 Time OUT15:59 Total Treatment [id number] Patient in ... at end of sessionbed, [...] scooting/bridging; rolling right; rolling left Roll Left Rumely (Bed Mobility)maximum assist (25% patient effort); 2 person assist; verbal cues; nonverbal cues (demo/gesture) Roll Right Rumely (Bed Mobility)maximum assist (25% patient effort); 2 person assist; verbal cues; nonverbal cues (demo/gesture) Scoot/Bridge Rumely (Bed Mobility)maximum assist (25% patient effort); 2 person assist; nonverbal cues (demo/gesture); verbal cues Kxhsqw-xd-Jdz Rumely (Bed Mobility)maximum assist (25% patient effort); 2 person assist; verbal cues; nonverbal cues (demo/gesture) Rrv-nv-Caqkpi Rumely (Bed Mobility)maximum assist (25% patient effort); 2 [...] unable to get to full standing. Sit-Stand Rumely (Transfers)maximum assist (25% patient effort); verbal cues; nonverbal cues (demo/gesture); 2-3 persona assist Sit-Stand Assistive Device (Transfers)walker, front-wheeled Stand-Sit Rumely (Transfers)maximum assist (25% patient effort); nonverbal cues [...] Score8 Short Term Goals: Bed Mobility: Date Hflzmzsailb94-Vcn-0209 Bed Mobility: Rumely Level Goalminimum assist (75% patients effort) Bed Mobility: Physical Assist Level Goal1-person assist, verbal cues Bed Mobility: Time Frame for Goal2 wks Transfer: Established [id number] Transfer: Transfer Type Ohszgva-nb-xwtyy/chair-to-b ed; not-os-dvffs/fdeat-my-gxy Transfer: Rumely Level Goalmoderate assist (50% patients effort) Transfer: Physical Assist Level Goal1-person assist; verbal cues Transfer: Assistive Device Goalrolling walker Transfer: Time Frame for Goal2 wks Gait: Established Gait: Rumely Level Goalmoderate assist (50% patients effort) Gait: [...] goals is gradual Electronic Signatures: Yosi Campbell (GOLF COACH) (Signed 25-Sep-2021 16:59) Entered: Outcome Summary, Short Term Goals, Sensory, TherEx, Outcomes Tools, Info, Mobility/Tone Authored: Short Term Goals, Outcome Summary, TherEx, Outcomes Tools, Info, Mobility/Tone, Sensory Boone Broussard (PT) (Signed 01-Oct-2021 09:01) Co-Signer: Outcome Summary, Short Term Goals, Sensory, TherEx (more content not included)... Normal [facility] Rehab Note-manager occupational apy - Partial co-tx with PT to tue09-25-2021 Rehab Note-occupational therapy - Partial co-tx with PT to Rehab: Info: Disciplineoccupational therapist Mode of Treatmentoccupational therapy; Partial co-tx with PT to maximize pt's mobility and safety. Time IN15:03 Time OUT15:56 Total Treatment [id number] Patient in ... at end of sessionbed, [...] sit to supine; rolling right Roll Left Rumely (Bed Mobility)Pt required assist to bend BLE at knees and to initiate turn at shoulders and hips, verbal cues for grasp on bed rail, technique, direction follow, and encouragement.; set up; verbal cues; maximum assist (25% patient effort); 2 person assist Roll Right Rumely (Bed Mobility)Pt required assist to bend BLE at knees and to initiate turn at shoulders and hips, verbal cues for grasp on bed rail, technique, direction follow, and encouragement.; set up; verbal cues; maximum assist (25% patient effort); 2 person assist Scoot/Bridge Rumely (Bed Mobility)boost HOB; set up; verbal cues; maximum assist (25% patient effort); 2 person assist Syooen-ao-Vxx Rumely (Bed Mobility)HOB elevated; set up; verbal cues; maximum assist (25% patient effort); 2 person assist Ejq-nn-Wbshej Rumely (Bed Mobility)HOB elevated; set up; verbal cues; maximum assist (25% patient effort); 2 person assist Assistive Device (Bed Mobility)bed rails; draw sheet Transfer Assessment/Interventionssit to stand transfer Sit-Stand Rumely (Transfers)set up; verbal cues; maximum assist (25% patient effort); x 2-3 assist Safety Issues Impacting Function (Mobility)ability to follow commands; awareness of need for assistance; insight into deficits/self awareness; judgment; problem solving Impairments Impacting Function (Mobility)balance; cognition; endurance/activity tolerance; pain; strength; postural/trunk control ADL: BADL Assessment/Interventiontoil eting; feeding; grooming; lower body dressing; upper body dressing; bathing Rumely Level (Bathing)set up; verbal cues; moderate assist (50% patient effort); 1 person assist Comment (Bathing)anticipated due to impaired balance, strength, and pain. Rumely Level (Upper Body Dressing)set up; verbal cues; moderate assist (50% patient effort) Comment (Upper Body Dressing)anticipated due to impaired balance, strength, and pain. Rumely Level (Lower Body Dressing)don; socks; dependent (less than 25% patient effort) Position (Lower Body Dressing)supine Rumely Level (Grooming)set up; contact guard Comment (Grooming)anticipated due to impaired balance, strength, and pain. Rumely Level (Feeding)set up; modified independence Comment (Feeding)anticipated Rumely Level (Toileting)dependent (less than 25% patient effort); purewick Impairments, BADL Safety/Performancebalance; cognition; endurance/activity tolerance; strength; trunk/postural control Cognitive Impairments, BADL Safety/Performanceawareness , need for assistance; insight into deficits/self awareness; judgment; problem solving/reasoning Motor: Sitting, Static (Balance)good balance SBA Sitting, Dynamic (Balance)fair balance CGA Uxo-ge-Onozg (Balance)poor balance Max A x 2-3 - attempted Standing, Static (Balance)unable to balance Standing, Dynamic (Balance)unable to balance Balance ActivitiesPt sat EOB ~30 minutes with SBA/CGA for safety. Pt demonstrated good sitting balance and trunk control. Pt attempted STS transfers 3x with (more content not included)... Normal [facility] Daily Progress Note-Nuha stearns 09-24-2021 Daily Progress Note-Neurosurgery Service: Neurosurgery Subjective Data: MORALES LEE is a 46 year old Female who is Hospital Day # 10 and POD #3 for posterior L4-L5 decompression;posterior L4-L5 arthrodesis. Objective Data: Objective Information: T [id number]% Date/Time09/23 20:4809/23 20: 20: 20: 20:48 Range(35.5C - 36.1C ) (66 - 75 ) (16 - 19 ) (90 - 118 )/ (54 - 75 ) (98% - 99% ) As of 23-Sep-2021 22:43:00, patient is on 2 L/min of oxygen via nasal cannula. ---- Intake and Output ----- Mn/Dy/Year TimeIntakeOutputNet Sep 22, 2021 10:00 [id number] Sep 22, 2021 2:00 [id number] Sep 22, 2021 6:00 [id number] The Intake and Output Totals for the last 24 hours are: IntakeOutputNet [id number] Physical Exam by System: Neurological: A&Ox3 RUE [...] the note. I personally evaluated the patient [id number] Comments/ Additional Findings Doing well. Kyphotic posture and Back Pain from instability and traumatic chance fracture significantly improved as compared to preop. She developed weakness involving ankle PF/DF following presybeterian of alignment from buckling of hypertrophic ligamentum [...] for ambulation and PT for now and half-way if the weakness fails to improve over [...] to the (more content not included)... Normal [facility] MAGNESIUMon 09-24-2021 Magnesium [Mass/Vol] 1.71 mg/dL Normal 1.60 - 2.40 [facility] Comment on above: Performed By: #### A FPA3 #### [facility] [id number] [place] [address] Magnesium, Serumon Magnesium [Mass/Vol] 1.71 mg/dL See Below MG-G astroen terology-Rosendo moura 6 [facility] Work Phone: Comment on above: Reference Range: 1.6 0 - 2.40 RENAL FUNCTION PANELon 09-24 Albumin [Mass/Vol] 2.6 g/dL Low 3.4 - 5.0 [facility] Comment on above: Performed By: #### R ENAL ####[id number] [place] [address] Anion gap [Moles/Vol] 10 mmol/L Normal 10 - 20 [facility] Comment on above: Performed By: #### R ENAL ####[id number] [place] [address] Calcium [Mass/Vol] 7.7 mg/dL Low 8.6 - 10.6 [facility] Comment on above: Performed By: #### R ENAL ####[id number] [place] [address] Chloride [Moles/Vol] 108 mmol/L High 98 - 107 [facility] Comment on above: Performed By: #### R ENAL ####[id number] [place] [address] Creatinine [Mass/Vol] 0.39 mg/dL Low 0.50 - 1.05 [facility] Comment on above: Performed By: #### R ENAL ####[id number] [place] [address] eGFR FEMALE >90 Normal >90 [facility] Comment on above: Result Comment: CALC ULATIONS OF ESTIMATED GFR ARE PERFORMED USING THE 2020 CKD-EPI STUDY REFIT EQUATION WITHOUT THE RACE VARIABLE FOR THE IDMS-TRACEABLE CREATININE METHODS. https://jasn.asnjournals.org/content/early//ASN.2131089 988 Performed By: #### R ENAL ####[id number] [place] [address] Glucose [Mass/Vol] 92 mg/dL Normal 74 - 99 [facility] Comment on above: Performed By: #### R ENAL ####[id number] [place] [address] HCO3 (Bld) [Moles/Vol] 29 mmol/L Normal 21 - 32 [facility] Comment on above: Performed By: #### R ENAL ####[id number] [place] [address] Phosphate [Mass/Vol] 3.3 mg/dL Normal 2.5 - 4.9 [facility] Comment on above: Result Comment: The performance characteristics of phosphorus testing in heparinized plasma have been validated by the individual laboratory site where testing is performed. Testing on heparinized plasma is not approved by the FDA; however, such approval is not necessary. Performed By: #### R ENAL ####[id number] [place] [address] Potassium [Moles/Vol] 3.9 mmol/L Normal 3.5 - 5.3 [facility] Comment on above: Performed By: #### R ENAL ####[id number] [place] [address] Sodium [Moles/Vol] 143 mmol/L Normal 136 - 145 [facility] Comment on above: Performed By: #### R ENAL ####[id number] [place] [address] Urea nitrogen [Mass/Vol] 5 mg/dL Low 6 - 23 [facility] Comment on above: Performed By: #### R ENAL ####[id number] [place] [address] Rehab Note-attemptedon 09-24 Rehab Note-attempted Rehab: Info: Mode of Treatmentattempted Time IN15:00 Reason Treatment Not Performedpatient/family declined treatment; Pt declined participation in OT treatment stating she was on a very important call that she needed to take. Electronic Signatures: Silvana Marshall (OT) (Signed 24-Sep-2021 15:29) Authored: Info Last Updated: 24-Sep-2021 15:29 by Silvana Marshall (OT) Normal [facility] Rehab Note-physical therapyo n 09-24-2021 [...] 24-Sep-2021 15:07 by Boone Broussard (PT) Normal [facility] Renal Function Panelon 09-24 Albumin BCP [...] - 4.9 MG-G astroen terology-Rosendo lwell 6 [facility] Work Phone: Comment on above: The [...] >90 >90 MG-G astroen terology-Rosendo lwell 6 [facility] Work Phone: Comment on above: CALCULATIONS OF IVY MATED GFR ARE PERFORMED USING THE 2020 CKD-EPI STUDY REFIT EQUATION WITHOUT THE RACE VARIABLE FOR THE IDMS-TRACEABLE CREATININE METHODS.https://jasn.asnjournals.org/content//ASN .1140402109 CBCon 09-23-2021 Erythrocyte distribution width (RBC) [Ratio] 13.1 % Normal 11.5 - 14.5 [facility] Comment on above: Performed By: #### C BC ####[id number] [place] [address] Hematocrit (Bld) [Volume fraction] 30.5 % Low 36.0 - 46.0 [facility] Comment on above: Performed By: #### C BC ####[id number] [place] [address] Hemoglobin (Bld) [Mass/Vol] 9.9 g/dL Low 12.0 - 16.0 [facility] Comment on above: Performed By: #### C BC ####[id number] [place] [address] MCHC (RBC) [Mass/Vol] 32.5 g/dL Normal 32.0 - 36.0 [facility] Comment on above: Performed By: #### C BC ####[id number] [place] [address] MCV (RBC) [Entitic vol] 92 fL Normal 80 - 100 [facility] Comment on above: Performed By: #### C BC ####[id number] [place] [address] NUCLEATED RBC 0.0 /100 WBC Normal 0.0-0.0 [facility] Comment on above: Performed By: #### C BC ####[id number] [place] [address] Platelets (Bld) [#/Vol] 244 10*3/uL Normal 150 - 450 [facility] Comment on above: Performed By: #### C BC ####[id number] [place] [address] RBC 3.33 x10E12/L Low 4.00 - 5.20 [facility] Comment on above: Performed By: #### C BC ####[id number] [place] [address] WBC (Bld) [#/Vol] 8.6 10*3/uL Normal 4.4 - 11.3 [facility] Comment on above: Performed By: #### C BC ####[id number] [place] [address] CBC AND DIFFERENTIALon 09-23 % AUTOMATED IMMATURE GRAN 0.4 % Normal 0.0 - 0.9 [facility] Comment on above: Result Comment: Jaleesa ture Granulocyte Count (IG) includes promyelocytes, myelocytes and metamyelocytes but does not include bands. Percent differential counts (%) should be interpreted in the context of the absolute cell counts (cells/L). Performed By: #### C BC #### [facility] [address] [place] [address] Basophils (Bld) [#/Vol] 0.03 10*3/uL Normal 0.00 - 0.10 [facility] Comment on above: Performed By: #### C BC #### [facility] [address] [place] [address] Basophils/100 WBC (Bld) 0.4 % Normal 0.0 - 2.0 [facility] Comment on above: Performed By: #### C BC #### [facility] [address] [place] [address] Eosinophils (Bld) [#/Vol] 0.27 10*3/uL Normal 0.00 - 0.70 [facility] Comment on above: Performed By: #### C BC #### [facility] [address] [place] [address] Eosinophils/100 WBC (Bld) 3.6 % Normal 0.0 - 6.0 [facility] Comment on above: Performed By: #### C BC #### [facility] [address] [place] [address] Erythrocyte distribution width (RBC) [Ratio] 13.2 % Normal 11.5 - 14.5 [facility] Comment on above: Performed By: #### C BC #### [facility] [address] [place] [address] Hematocrit (Bld) [Volume fraction] 30.9 % Low 36.0 - 46.0 [facility] Comment on above: Performed By: #### C BC #### [facility] [address] [place] [address] Hemoglobin (Bld) [Mass/Vol] 10.4 g/dL Low 12.0 - 16.0 [facility] Comment on above: Performed By: #### C BC #### [facility] [address] [place] [address] Lymphocytes (Bld) [#/Vol] 2.41 10*3/uL Normal 1.20 - 4.80 [facility] Comment on above: Performed By: #### C BC #### [facility] [address] [place] [address] Lymphocytes/100 WBC (Bld) 31.9 % Normal 13.0 - 44.0 [facility] Comment on above: Performed By: #### C BC #### [facility] [address] [place] [address] MCHC (RBC) [Mass/Vol] 33.7 g/dL Normal 32.0 - 36.0 [facility] Comment on above: Performed By: #### C BC #### [facility] [address] [place] [address] MCV (RBC) [Entitic vol] 91 fL Normal 80 - 100 [facility] Comment on above: Performed By: #### C BC #### [facility] [address] [place] [address] Monocytes (Bld) [#/Vol] 0.49 10*3/uL Normal 0.10 - 1.00 [facility] Comment on above: Performed By: #### C BC #### [facility] [address] [place] [address] Monocytes/100 WBC (Bld) 6.5 % Normal 2.0 - 10.0 [facility] Comment on above: Performed By: #### C BC #### [facility] [address] [place] [address] Neutrophils (Bld) [#/Vol] 4.32 10*3/uL Normal 1.20 - 7.70 [facility] Comment on above: Performed By: #### C BC #### [facility] [address] [place] [address] Neutrophils/100 WBC (Bld) 57.2 % Normal 40.0 - 80.0 [facility] Comment on above: Performed By: #### C BC #### [facility] [address] [place] [address] NUCLEATED RBC 0.0 /100 WBC Normal 0.0-0.0 [facility] Comment on above: Performed By: #### C BC #### [facility] [address] [place] [address] Platelets (Bld) [#/Vol] 228 10*3/uL Normal 150 - 450 [facility] Comment on above: Performed By: #### C BC #### [facility] [address] [place] [address] RBC 3.39 x10E12/L Low 4.00 - 5.20 [facility] Comment on above: Performed By: #### C BC #### [facility] [address] [place] [address] WBC (Bld) [#/Vol] 7.6 10*3/uL Normal 4.4 - 11.3 [facility] Comment on above: Performed By: #### C BC #### [facility] [address] [place] [address] Complete Blood Count + Diffe rentialon 09-23-2021 Basophils/100 WBC (Bld) 0.4 % 0.0 - 2.0 [facility]-Gastroen terology-Rosendo lwell 6 [facility] Work Phone: Erythrocyte distribution width (RBC) [...] 6 [facility] Work Phone: RBC (Bld) [#/Vol] 3.39 {x10E12/L} below low threshold See Below MG-Gastroen terology-Rosendo lwell 6 [facility] Work Phone: [phone] Comment on above: Reference Range: 4.0 0 - 5.20 WBC (Bld) [#/Vol] 7.6 10*3/uL 4.4 - 11.3 MG-Gas troen terology-Rosendo [facility] 6 [facility] Work Phone: Complete Blood Count + Differential 0.03 {x10E9/L} See Below MG-Gastroen terology-Rosendo [facility] 6 [facility] Work Phone: Comment on above: Reference Range: 0.0 0 - 0.10 Complete Blood Count + Differential 0.27 {x10E9/L} See Below [facility]-Gastroen terology-[facility] 6 [facility] Work Phone: Comment on above: Reference Range: 0.0 0 - 0.70 Complete Blood Count + Differential 0.49 {x10E9/L} See Below MG-Gastroen terology-Rosendo [address] Work Phone: Comment on above: Reference Range: 0.1 0 - 1.00 Complete Blood Count + Differential 2.41 {x10E9/L} See Below MG-Gastroen terology-Rosendo [address] Work Phone: Comment on above: Reference Range: 1.2 0 - 4.80 Complete Blood Count + Differential 4.32 {x10E9/L} See Below [facility]-Gastroen terology-[facility] 6 [facility] Work Phone: Comment on above: Reference Range: 1.2 0 - 7.70 Complete Blood Count + Differential 3.6 % 0.0 - 6.0 [facility]-Gastroen terology-[facility] 6 [facility] Work Phone: Complete Blood Count + Differential 0.4 % 0.0 - 0.9 MG-Gastroen terology-Rosendo lwell 6 [facility] Work Phone: Comment on above: Immature [...] [Mass/Vol] 1.68 mg/dL Normal 1.60 - 2.40 [facility] Comment on above: Performed By: #### C #### [facility] [address] [place] [address] Magnesium, Serumon Magnesium [Mass/Vol] 1.68 mg/dL See [...] (Advanced Practice Nurse) done by Ambrocio Izaguirre ([facility]) Discharge - Partial Reconciliation: 23-Sep-2021 13:21 by: Ambrocio Izaguirre ([facility]) Discharge - Partial Reconciliation: 24-Sep-2021 10:12 by: Ambrocio Izaguirre ([facility]) Discharge - Partial Reconciliation: 30-Sep-2021 14:12 by: Concetta Shi ([facility]) Discharge - Partial Reconciliation: 30-Sep-2021 14:14 by: Concetta Shi ([facility]) Discharge - Reconciliation: 30-Sep-2021 14:24 by: Concetta Shi ([facility]) Discharge - Reset to Incomplete: 02-Oct-2021 15:36 by: Ambrocio Izaguirre ([facility]) Discharge - Reconciliation: 02-Oct-2021 15:40 by: Ambrocio Izaguirre ([facility]) Discharge - Reset to Incomplete: 02-Oct-2021 15:57 by: Ambrocio Izaguirre ([facility]) Discharge - Reconciliation: 02-Oct-2021 15:58 by: Ambrocio Izaguirre ([facility]) Home Medications EnteredHOME MEDICATIONS AT [...] not required (more content not included)... Normal [facility] PATH REVIEW-IMMUNOHEMATOLOGY on 09-23-2021 PATH REV-IMMUNOHEMOTOL LETA Normal [facility] Comment on above: Result Comment: By [...] PATIENT. Performed By: #### A FPA3 #### [facility] [address] [place] [address] RENAL FUNCTION PANELon 09-23 Albumin [Mass/Vol] 2.7 g/dL Low 3.4 - 5.0 [facility] Comment on above: Performed By: #### V FPA3 #### [facility] [address] [place] [address] Anion gap [Moles/Vol] 10 mmol/L Normal 10 - 20 [facility] Comment on above: Performed By: #### V FPA3 #### [facility] [address] [place] [address] Calcium [Mass/Vol] 7.9 mg/dL Low 8.6 - 10.6 [facility] Comment on above: Performed By: #### V FPA3 #### [facility] [address] [place] [address] Chloride [Moles/Vol] 108 mmol/L High 98 - 107 [facility] Comment on above: Performed By: #### V FPA3 #### [facility] [address] [place] [address] Creatinine [Mass/Vol] 0.39 mg/dL Low 0.50 - 1.05 [facility] Comment on above: Performed By: #### V FPA3 #### [facility] [address] [place] [address] eGFR FEMALE >90 Normal >90 [facility] Comment on above: Result Comment: CALC ULATIONS OF ESTIMATED GFR ARE PERFORMED USING THE 2020 CKD-EPI STUDY REFIT EQUATION WITHOUT THE RACE VARIABLE FOR THE IDMS-TRACEABLE CREATININE METHODS. https://jasn.asnjournals.org/content/early/ASN.5356089 988 Performed By: #### V FPA3 #### [facility] [address] [place] [address] Glucose [Mass/Vol] 87 mg/dL Normal 74 - 99 [facility] Comment on above: Performed By: #### V FPA3 #### [facility] [address] [place] [address] HCO3 (Bld) [Moles/Vol] 29 mmol/L Normal 21 - 32 [facility] Comment on above: Performed By: #### V FPA3 #### [facility] [address] [place] [address] Phosphate [Mass/Vol] 2.7 mg/dL Normal 2.5 - 4.9 [facility] Comment on above: Result Comment: The performance characteristics of phosphorus testing in heparinized plasma have been validated by the individual laboratory site where testing is performed. Testing on heparinized plasma is not approved by the FDA; however, such approval is not necessary. Performed By: #### V FPA3 #### [place] [address] [place] [address] Potassium [Moles/Vol] 3.6 mmol/L Normal 3.5 - 5.3 [facility] Comment on above: Performed By: #### V FPA3 #### [facility] [address] [place] [address] Sodium [Moles/Vol] 143 mmol/L Normal 136 - 145 [facility] Comment on above: Performed By: #### V FPA3 #### [facility] [address] [place] [address] Urea nitrogen [Mass/Vol] 9 mg/dL Normal 6 - 23 [facility] Comment on above: Performed By: #### V FPA3 #### [facility] [address] [place] [address] Rehab Note-individual therap yon 09-23-2021 Rehab Note-individual therapy Rehab: Info: Disciplinephysical therapist Mode of Treatmentphysical therapy; individual therapy Time IN14:50 Time OUT15:29 Total Treatment [id number] Patient in ... at end of sessionbed, [...] sit to supine; rolling right Roll Left Rumely (Bed Mobility)verbal cues; maximum assist (25% patient effort); 1 person assist Roll Right Rumely (Bed Mobility)maximum assist (25% patient effort); verbal cues; 1 person assist Scoot/Bridge Rumely (Bed Mobility)verbal cues; maximum assist (25% patient effort); 2 person assist; boost HOB Lzhxmv-ub-Iym Rumely (Bed Mobility)verbal cues; maximum assist (25% patient effort); 1 person assist Ctw-uc-Pglsal Rumely (Bed Mobility)set up; verbal cues; maximum assist (25% patient effort); 1 person assist Assistive Device (Bed Mobility)bed rails; draw sheet Transfer Assessment/Interventionssit to stand transfer; stand to sit transfer Sit-Stand Rumely (Transfers)2 person assist; moderate assist (50% patient effort) Sit-Stand Assistive Device (Transfers)B arm-in-arm assist Stand-Sit Rumely (Transfers)2 person assist; moderate assist (50% patient [...] 23-Sep-2021 15:50 by Boone Broussard (PT) Normal [facility] Renal Function Panelon 09-23 Albumin BCP dye [Mass/Vol] 2.7 g/dL below low threshold 3.4 - 5.0 [facility]-Gastroen terology-Rosendo moura 6 [facility] Work Phone: Anion gap [Moles/Vol] [...] >90 >90 MG-G astroen terology-Rosendo lwell [facility] Work Phone: Comment on above: CALCULATIONS OF IVY MATED GFR ARE PERFORMED USING THE 2020 CKD-EPI STUDY REFIT EQUATION WITHOUT THE RACE VARIABLE FOR THE IDMS-TRACEABLE CREATININE METHODS.https://jasn.asnjournals.org/content//ASN .7426880883 ANTIBODY IDENT.on 09-22-2021 ANTIBODY IDENT. Anti-E Normal [facility] Comment on above: Performed By: #### V FPA3 #### [facility] [address] [place] [address] CBCon 09-22-2021 Erythrocyte distribution width (RBC) [Ratio] 13.2 % Normal 11.5 - 14.5 [facility] Comment on above: Performed By: #### V FPA3 #### [place] [address] [place] [address] Hematocrit (Bld) [Volume fraction] 30.6 % Low 36.0 - 46.0 [facility] Comment on above: Performed By: #### V FPA3 #### [facility] [address] [place] [address] Hemoglobin (Bld) [Mass/Vol] 10.2 g/dL Low 12.0 - 16.0 [facility] Comment on above: Performed By: #### V FPA3 #### [facility] [address] [place] [address] MCHC (RBC) [Mass/Vol] 33.3 g/dL Normal 32.0 - 36.0 [facility] Comment on above: Performed By: #### V FPA3 #### [place] [address] [place] [address] MCV (RBC) [Entitic vol] 91 fL Normal 80 - 100 [facility] Comment on above: Performed By: #### V FPA3 #### [facility] [address] [place] [address] NUCLEATED RBC 0.0 /100 WBC Normal 0.0-0.0 [facility] Comment on above: Performed By: #### V FPA3 #### [facility] [address] [place] [address] Platelets (Bld) [#/Vol] 215 10*3/uL Normal 150 - 450 [facility] Comment on above: Performed By: #### V FPA3 #### [facility] [address] [place] [address] RBC 3.37 x10E12/L Low 4.00 - 5.20 [facility] Comment on above: Performed By: #### V FPA3 #### [facility] [address] [place] [address] WBC (Bld) [#/Vol] 9.6 10*3/uL Normal 4.4 - 11.3 [facility] Comment on above: Performed By: #### López FPA3 #### [facility] [address] [place] [address] CBC AND DIFFERENTIALon 09-22 % AUTOMATED IMMATURE GRAN 0.4 % Normal 0.0 - 0.9 [facility] Comment on above: Result Comment: Jaleesa ture Granulocyte Count (IG) includes promyelocytes, myelocytes and metamyelocytes but does not include bands. Percent differential counts (%) should be interpreted in the context of the absolute cell counts (cells/L). Performed By: #### C BCDF ####[id number] [place] [address] Basophils (Bld) [#/Vol] 0.02 10*3/uL Normal 0.00 - 0.10 [facility] Comment on above: Performed By: #### C BCDF ####[id number] [place] [address] Basophils/100 WBC (Bld) 0.2 % Normal 0.0 - 2.0 [facility] Comment on above: Performed By: #### C BCDF ####[id number] [place] [address] Eosinophils (Bld) [#/Vol] 0.04 10*3/uL Normal 0.00 - 0.70 [facility] Comment on above: Performed By: #### C BCDF ####[id number] [place] [address] Eosinophils/100 WBC (Bld) 0.4 % Normal 0.0 - 6.0 [facility] Comment on above: Performed By: #### C BCDF ####[id number] [place] [address] Erythrocyte distribution width (RBC) [Ratio] 13.2 % Normal 11.5 - 14.5 [facility] Comment on above: Performed By: #### C BCDF ####[id number] [place] [address] Hematocrit (Bld) [Volume fraction] 30.6 % Low 36.0 - 46.0 [facility] Comment on above: Performed By: #### C BCDF ####[id number] [place] [address] Hemoglobin (Bld) [Mass/Vol] 10.3 g/dL Low 12.0 - 16.0 [facility] Comment on above: Performed By: #### C BCDF ####[id number] [place] [address] Lymphocytes (Bld) [#/Vol] 2.19 10*3/uL Normal 1.20 - 4.80 [facility] Comment on above: Performed By: #### C BCDF ####[id number] [place] [address] Lymphocytes/100 WBC (Bld) 19.9 % Normal 13.0 - 44.0 [facility] Comment on above: Performed By: #### C BCDF ####[id number] [place] [address] MCHC (RBC) [Mass/Vol] 33.7 g/dL Normal 32.0 - 36.0 [facility] Comment on above: Performed By: #### C BCDF ####[id number] [place] [address] MCV (RBC) [Entitic vol] 90 fL Normal 80 - 100 [facility] Comment on above: Performed By: #### C BCDF ####[id number] [place] [address] Monocytes (Bld) [#/Vol] 0.71 10*3/uL Normal 0.10 - 1.00 [facility] Comment on above: Performed By: #### C BCDF ####[id number] [place] [address] Monocytes/100 WBC (Bld) 6.5 % Normal 2.0 - 10.0 [facility] Comment on above: Performed By: #### C BCDF ####[id number] [place] [address] Neutrophils (Bld) [#/Vol] 7.98 10*3/uL High 1.20 - 7.70 [facility] Comment on above: Performed By: #### C BCDF ####[id number] [place] [address] Neutrophils/100 WBC (Bld) 72.6 % Normal 40.0 - 80.0 [facility] Comment on above: Performed By: #### C BCDF ####[id number] [place] [address] NUCLEATED RBC 0.0 /100 WBC Normal 0.0-0.0 [facility] Comment on above: Performed By: #### C BCDF ####[id number] [place] [address] Platelets (Bld) [#/Vol] 242 10*3/uL Normal 150 - 450 [facility] Comment on above: Performed By: #### C BCDF ####[id number] [place] [address] RBC 3.39 x10E12/L Low 4.00 - 5.20 [facility] Comment on above: Performed By: #### C BCDF ####[id number] [place] [address] WBC (Bld) [#/Vol] 11.0 10*3/uL Normal 4.4 - 11.3 [facility] Comment on above: Performed By: #### C BCDF ####[id number] [place] [address] Complete Blood Count + Diffe rentialon 09-22-2021 [...] threshold See Below [facility] 6 [facility] Work Phone: Comment on above: Reference Range: 4.0 0 - 5.20 WBC (Bld) [#/Vol] 11.0 10*3/uL 4.4 - 11.3 [facility]-Ga stroen terology-[facility] 6 [facility] Work Phone: Complete Blood Count + Differential 0.4 % 0.0 - 0.9 [facility] 6 [facility] Work Phone: Comment on above: Immature Granulocyte Count (IG) includes promyelocytes, myelocytes and metamyelocytes but does not include bands. Percent differential counts (%) should be interpreted in the context of the absolute cell counts (cells/L). Complete Blood Count + Differential 0.0 {/100_WBC} 0.0-0.0 [facility] 6 [facility] Work Phone: Complete Blood Count + Differential 0.02 {x10E9/L} See Below [facility]ology-[facility] 6 [facility] Work Phone: Comment on above: Reference Range: 0.0 0 - 0.10 Complete Blood Count + Differential 0.04 {x10E9/L} See Below [facility]ology-[facility] 6 [facility] Work Phone: Comment on above: Reference Range: 0.0 0 - 0.70 Complete Blood Count + Differential 0.71 {x10E9/L} See Below [facility]ology-[facility] 6 [facility] Work Phone: Comment on above: Reference Range: 0.1 0 - 1.00 Complete Blood Count + Differential 2.19 {x10E9/L} See Below [facility]astro[facility] terology-[facility]well 6 [facility] Work Phone: Comment on above: Reference [...] with at bedside. She is currently on GRAVURE PRESS OPERATOR for pain, and reports being tired [...] this time. Objective: Objective Information: T PRBPSpO2 [id number]/5792% Date/Time09/22 0:001/18 8:001/18 8:001/18 8:001/18 8:00 Range(36.3C - 36.8C ) [...] Fair. Medications: Continuous Medications ----- 1. HYDROmorphone GRAVURE PRESS OPERATOR 25 mg/ NaCL 0.9% 50 mL: 2.6 mg/hr IV GRAVURE PRESS OPERATOR 2. Sodium Chloride 0.9% Infusion: 1000 [...] from Suboxone (more content not included)... Normal [facility] Daily Progress Note-Nuha stearns 09-22-2021 Daily Progress Note-Neurosurgery Service: Neurosurgery Subjective Data: MORALES LEE is a 46 year old Female who is Hospital Day # 8 and POD #1 for posterior L4-L5 decompression;posterior L4-L5 arthrodesis. Objective Data: Objective Information: T PRBPSpO2 [id number]/5895% Date/Time09/22 0:001/18 0:001/18 0:001/18 0:001/18 0:00 Range(36.2C - 36.8C ) (82 - 109 ) (12 - 20 ) (85 - 132 )/ (49 - 89 ) (94% - 100% ) As of 21-Sep-2021 17:00:00, patient is on 4 L/min of oxygen via nasal cannula. Pain reported at 09/21 16:33: 5 = Moderate ---- Intake and Output ----- Mn/Dy/Year TimeIntakeOutputNet Sep 20, 2021 10:00 [id number] Sep 20, 2021 6:00 [id number] The Intake and Output Totals for the last 24 hours are: IntakeOutputNet [id number] Physical Exam by System: Neurological: A&Ox3 RUE [...] Chronic pain recs- intra-op ketamine, meloxicam post-op, GRAVURE PRESS OPERATOR until good PT eval, Suboxone as OP COWS psych recs alvares for retention SCD's, [facility] Attestation: Note Completion: I am a: Resident/Fellow [...] the note. I personally evaluated the patient [id number] Electronic Signatures: Fidel Maciel (Resident)) (Signed 22-Sep-2021 00:35) Authored: Service, Subjective Data, Objective Data, Assessment and Plan, Note Completion Lex Frederick) (Signed 22-Sep-2021 10:31) Authored: Note Completion Co-Signer: Service, Subjective Data, Objective Data, Assessment and Plan, Note Completion Last Updated: 22-Sep-2021 10:31 by Lex Frederick) Normal [facility] Discharge Imrsmhr8sq -18-2 022 Discharge Profile2 Discharge Orders: Anticipated Discharge Date: Anticipated Discharge [id number] Problem List: Additional Dx: Spinal stenosis of [...] Please call your Neurosurgeon's office (Dr. Frederick [phone]) if you have any questions. -If you [...] or twist. Instead, bend at knees to sisal picker objects. Wound Care: Inspect your incision [...] taking Acetamin (more content not included)... Normal [facility] LACTATEon 09-22-2021 Lactate [Moles/Vol] 0.8 mmol/L Normal 0.4 - 2.0 [facility] Comment on above: Result Comment: Trina puncture immediately after or during the administration of Metamizole may lead to falsely low results. Testing should be performed immediately prior to Metamizole dosing. Performed By: #### C BC #### [facility] [address] [place] [address] Laboratory - Hematology and Cell countson 09-22-2021 Erythrocyte distribution width (RBC) [Ratio] 13.2 % See Below MG-Gastroen terology-Rosendo moura 6 [facility] Work Phone: Comment on above: Reference [...] safety. Time IN10:50 Time OUT11:40 Total Treatment [id number] Patient in ... at end of sessionbed, 3 railings up; alarm on Communicated with ... at end of sessionbedside nurse Patient Effortgood Symptoms Noted During/After Treatmentfatigue; increased pain Patient Profile Reviewedyes Onset of Illness/Injury or Date of [id number] Reason for Referral-09/18/21: s/p exploration of spinal [...] EOB sitting. Pertinent History of Current Functional Roazubg89 y/o with hx of HTN, C6-7 ACDF, [...] TubesIV; triple lumen; telemetry; urethral catheter indwelling; GRAVURE PRESS OPERATOR pump, DAVOL drain, wound vac O2 Deliverynasal cannula; 4L Pre Treatment Patient Positionsupine Pre Treatment Blood Pressure Laxtbyze12 mmHg Pre Treatment Diastolic (mm Hg)46 mmHg Pre Treatment Heart Rate (beats/min)67 Pre Treatment Respiratory Rate (breaths/min)19 Pre Treatment SpO2 (%)96 % Pre Treatment Oxygen Deliverysupplemental O2 Pre Treatment CommentsMAP 56 During Treatment Patient Positionsitting During Treatment Blood Pressure Zapikubm86 mmHg During Treatment Diastolic (mm Hg)77 mmHg [...] to sit; sit to supine Roll Left Rumely (Bed Mobility)set up; verbal cues; 2 person assist; Pt required assist to bend BLE at (more content not included)... Normal [facility] PATH REVIEW-IMMUNOHEMATOLOGY on 09-22-2021 PATH REV-IMMUNOHEMOTOL ZURDO Normal [facility] Comment on above: Result Comment: By [...] FOR THIS PATIENT. Performed By: #### C BC #### [facility] [address] [place] [address] PT Evaluation u1-eu-fslhcgys t - co-treatment with OT to maxion 09-22-2021 PT Evaluation h1-pj-awgxqdnss - co-treatment with OT to [facility] Rehab: Info: Mode of Treatmentphysical therapy; co-treatment; co-treatment with OT to maximize safety, mobility and ADL participation Time IN10:50 Time OUT11:40 Total Treatment [id number] Patient in ... at end of sessionbed, 3 railings up; alarm on Communicated with ... at end of sessionbedside nurse Patient Effortgood Symptoms Noted During/After Treatmentfatigue; increased pain Patient Profile Reviewedyes Onset of Illness/Injury or Date of [id number]-2815 Reason for Referral-09/18/21: s/p exploration of spinal [...] TubesIV; triple lumen; telemetry; urethral catheter indwelling; GRAVURE PRESS OPERATOR pump, DAVOL drain, wound vac O2 Deliverynasal cannula; 4L Pre Treatment Patient Positionsupine Pre Treatment Blood Pressure Kimxcovi59 mmHg Pre Treatment Diastolic (mm Hg)46 mmHg Pre Treatment Heart Rate (beats/min)67 Pre Treatment SpO2 (%)96 % Pre Treatment Oxygen Deliverysupplemental O2 During Treatment Patient Positionsitting During Treatment Blood Pressure Gxjpevri99 mmHg During Treatment Diastolic (mm Hg)77 mmHg [...] sit to supine; rolling right Roll Left Rumely (Bed Mobility)verbal cues; 2 person assist; Pt required assist to bend BLE at knees and to initiate turn at shoulders and hips, verbal cues for grasp on bed rail, technique, direction follow, and encouragement.; maximum assist (25% patient effort) Roll Right Rumely (Bed Mobility)2 person assist; maximum assist (25% patient effort); verbal cues Scoot/Bridge Rumely (Bed Mobility)verbal cues; maximum assist (25% patient effort); 2 person assist; boost HOB Xkxlxo-hk-Otw Rumely (Bed Mobility)verbal cues; maximum assist (25% patient effort); 1 person assist Hld-ku-Ylmnbr Rumely (Bed Mobility)set up; verbal cues; maximum assist (25% patient effort); 1 person assist Assistive Device (Bed Mobility)bed rails; draw sheet Impairments Impacting Function (Mobility)balance; cognition; endurance/activity tolerance; pain; strength; postural/trunk control; motor control Motor: Sitting, Static (Balance)SBA Sitting, Dynamic (Balance)CGA Hnu-ok-Kbbtq (Balance)MADELIN this visit. Pt hypotensive Sensory: Pre-Treatment Pain Rating7/10 Post-Treatment Pain Rating7/10 Comment, Pre/Post Treatment PainPt reported pain throughout buttocks and back, utilized GRAVURE PRESS OPERATOR pump as needed. Pain LimitationFunctional mobility limited due pain; ADLs/IADLs limited due to pain; Participation limited by pain; RN or team was notified of limitations due to p (more content not included)... Normal [facility] RENAL FUNCTION PANELon 09-22 Albumin [Mass/Vol] 2.7 g/dL Low 3.4 - 5.0 [facility] Comment on above: Performed By: #### C BC #### [facility] [address] [place] [address] Anion gap [Moles/Vol] 10 mmol/L Normal 10 - 20 [facility] Comment on above: Performed By: #### C BC #### [facility] [address] [place] [address] Calcium [Mass/Vol] 7.8 mg/dL Low 8.6 - 10.6 [facility] Comment on above: Performed By: #### C BC #### [facility] [address] [place] [address] Chloride [Moles/Vol] 105 mmol/L Normal 98 - 107 [facility] Comment on above: Performed By: #### C BC #### [facility] [address] [place] [address] Creatinine [Mass/Vol] 0.49 mg/dL Low 0.50 - 1.05 [facility] Comment on above: Performed By: #### C BC #### [facility] [address] [place] [address] eGFR FEMALE >90 Normal >90 [facility] Comment on above: Result Comment: CALC ULATIONS OF ESTIMATED GFR ARE PERFORMED USING THE 2020 CKD-EPI STUDY REFIT EQUATION WITHOUT THE RACE VARIABLE FOR THE IDMS-TRACEABLE CREATININE METHODS. https://jasn.asnjournals.org/content/early/ASN.3889077 988 Performed By: #### C BC #### [facility] [address] [place] [address] Glucose [Mass/Vol] 93 mg/dL Normal 74 - 99 [facility] Comment on above: Performed By: #### C BC #### [facility] [address] [place] [address] HCO3 (Bld) [Moles/Vol] 29 mmol/L Normal 21 - 32 [facility] Comment on above: Performed By: #### C BC #### [facility] [address] [place] [address] Phosphate [Mass/Vol] 2.4 mg/dL Low 2.5 - 4.9 [facility] Comment on above: Result Comment: The performance characteristics of phosphorus testing in heparinized plasma have been validated by the individual laboratory site where testing is performed. Testing on heparinized plasma is not approved by the FDA; however, such approval is not necessary. Performed By: #### C BC #### [facility] [address] [place] [address] Potassium [Moles/Vol] 4.3 mmol/L Normal 3.5 - 5.3 [facility] Comment on above: Performed By: #### C BC #### [facility] [address] [place] [address] Sodium [Moles/Vol] 140 mmol/L Normal 136 - 145 [facility] Comment on above: Performed By: #### C BC #### [facility] [address] [place] [address] Urea nitrogen [Mass/Vol] 9 mg/dL Normal 6 - 23 [facility] Comment on above: Performed By: #### C BC #### [facility] [address] [place] [address] Renal Function Panelon 09-22 Albumin BCP dye [...] RACE VARIABLE FOR THE IDMS-TRACEABLE CREATININE METHODS.https://jasn.asnjournals.org/content//ASN .0397307583 UA MICROSCOPICon 09-22-2021 RBC 6 /HPF Abnormal 0-5 [facility] Comment on above: Performed By: #### C BC #### [facility] [address] [place] [address] SQUAMOUS EPITH. CELLS 1 /HPF Normal [facility] Comment on above: Performed By: #### C BC #### [facility] [address] [place] [address] WBC 8 /HPF Abnormal 0-5 [facility] Comment on above: Performed By: #### C BC #### [place] [address] [place] [address] URINALYSIS WITH CULTURE IF I NDICATEDon 09-22-2021 Appearance (U) CLEAR Normal CLEAR [facility] Comment on above: Performed By: #### U ARFX ####[id number] [place] [address] Bilirubin Ql (U) Negative Normal NEGATIVE [facility] Comment on above: Performed By: #### U ARFX ####[id number] [place] [address] Color (U) MIRANDA Normal STRAW,YELLO W [facility] Comment on above: Performed By: #### U ARFX ####[id number] [place] [address] Glucose Ql (U) Negative Normal NEGATIVE [facility] Comment on above: Performed By: #### U ARFX ####[id number] [place] [address] Hemoglobin Ql (U) Negative Normal NEGATIVE [facility] Comment on above: Performed By: #### U ARFX ####[id number] [place] [address] Ketones Ql (U) 20 (1+) Abnormal NEGATIVE [facility] Comment on above: Performed By: #### U ARFX ####[id number] [place] [address] Leukocyte esterase Test strip Ql (U) Negative Normal NEGATIVE [facility] Comment on above: Performed By: #### U ARFX ####[id number] [place] [address] Nitrite Ql (U) Negative Normal NEGATIVE [facility] Comment on above: Performed By: #### U ARFX ####[id number] [place] [address] pH (U) 5.0 [pH] Normal 5.0 - 8.0 [facility] Comment on above: Performed By: #### U ARFX ####[id number] [place] [address] Protein Ql (U) 30 (1+) Abnormal NEGATIVE [facility] Comment on above: Performed By: #### U ARFX ####[id number] [place] [address] Specific gravity (U) [Rel density] 1.040 High 1.005 - 1.035 [facility] Comment on above: Performed By: #### U ARFX ####[id number] [place] [address] Urobilinogen (U) [Mass/Vol] 2.0 mg/dL High 0.0 - 1.9 [facility] Comment on above: Result Comment: Due [...] positive urobilinogen. Performed By: #### U ARFX ####[id number] [id number] Lab Specimen Source Normal [facility] Comment on above: Performed By: #### U ARFX ####[id number] [place] [address] Performed By: #### C BC #### [facility] [address] [place] [address] Color (U) MIRANDA See Below MG-Gastroen terology-[facility]endo lwell 6 I [...] CULTURE,BACTERIALon URINE CULTURE,BACTERIAL PATIENT: MORALES LEE LOCATION: [place] [address] BILL#: [id number] : 71 AGE: SEX: F ORDERED BY: AMBROCIO IZAGUIRRE SOURCE: URINE COLLECTED: 09/22/21 12:59 ANTIBIOTICS AT [facility].: RECEIVED : 09/22/21 14:59 SITE: R E S U L T S URINE CULTURE,BACTERIAL FINAL 09/23/21 09:04 NO SIGNIFICANT GROWTH. Normal [facility] Comment on above: Performed By: #### C BC #### [facility] [address] [place] [address] Urinalysis, Microscopicon Urinalysis, Microscopic 1 {/HPF} [facility] 6 I Work Phone: Urinalysis, Microscopic 6 {/HPF} Abnormal 0-5 [facility] 6 I Work Phone: Urinalysis, Microscopic 8 {/HPF} Abnormal 0-5 [facility] 6 I Work Phone: Comment on above: SOURCE: CBCon 09-21-2021 Erythrocyte distribution width (RBC) [Ratio] 13.1 % Normal 11.5 - 14.5 [facility] Comment on above: Performed By: #### R ENAL #### [facility] [address] [place] [address] Hematocrit (Bld) [Volume fraction] 34.5 % Low 36.0 - 46.0 [facility] Comment on above: Performed By: #### R ENAL #### [facility] [address] [place] [address] Hemoglobin (Bld) [Mass/Vol] 11.4 g/dL Low 12.0 - 16.0 [facility] Comment on above: Performed By: #### R ENAL #### [facility] [address] [place] [address] MCHC (RBC) [Mass/Vol] 33.0 g/dL Normal 32.0 - 36.0 [facility] Comment on above: Performed By: #### R ENAL #### [facility] [address] [place] [address] MCV (RBC) [Entitic vol] 91 fL Normal 80 - 100 [facility] Comment on above: Performed By: #### R ENAL #### [facility] [address] [place] [address] NUCLEATED RBC 0.0 /100 WBC Normal 0.0-0.0 [facility] Comment on above: Performed By: #### R ENAL #### [facility] [address] [place] [address] Platelets (Bld) [#/Vol] 269 10*3/uL Normal 150 - 450 [facility] Comment on above: Performed By: #### R ENAL #### [facility] [address] [place] [address] RBC 3.81 x10E12/L Low 4.00 - 5.20 [facility] Comment on above: Performed By: #### R ENAL #### [facility] [address] [place] [address] WBC (Bld) [#/Vol] 14.6 10*3/uL High 4.4 - 11.3 [facility] Comment on above: Performed By: #### R ENAL #### [facility] [address] [place] [address] Erythrocyte distribution width (RBC) [Ratio] 13.2 % Normal 11.5 - 14.5 [facility] Comment on above: Performed By: #### R ENAL #### [facility] [address] [place] [address] Hematocrit (Bld) [Volume fraction] 35.8 % Low 36.0 - 46.0 [facility] Comment on above: Performed By: #### R ENAL #### [facility] [address] [place] [address] Hemoglobin (Bld) [Mass/Vol] 11.9 g/dL Low 12.0 - 16.0 [facility] Comment on above: Performed By: #### R ENAL #### [facility] [address] [place] [address] MCHC (RBC) [Mass/Vol] 33.2 g/dL Normal 32.0 - 36.0 [facility] Comment on above: Performed By: #### R ENAL #### [facility] [address] [place] [address] MCV (RBC) [Entitic vol] 91 fL Normal 80 - 100 [facility] Comment on above: Performed By: #### R ENAL #### [facility] [address] [place] [address] NUCLEATED RBC 0.0 /100 WBC Normal 0.0-0.0 [facility] Comment on above: Performed By: #### R ENAL #### [facility] [address] [place] [address] Platelets (Bld) [#/Vol] 215 10*3/uL Normal 150 - 450 [facility] Comment on above: Performed By: #### R ENAL #### [facility] [address] [place] [address] RBC 3.93 x10E12/L Low 4.00 - 5.20 [facility] Comment on above: Performed By: #### R ENAL #### [facility] [address] [place] [address] WBC (Bld) [#/Vol] 14.8 10*3/uL High 4.4 - 11.3 [facility] Comment on above: Performed By: #### R ENAL #### [facility] [address] [place] [address] Daily Progress Note-Nuha stearns 09-21-2021 Daily Progress Note-Neurosurgery Service: Neurosurgery Subjective Data: MORALES LEE is a 46 year old Female who is Hospital Day # 7 and POD #3 for 1. Exploration of spinal fusion;2. Reduction of L4/5 dislocation;2. L5-pelvis instrumented fusion with posterolateral arthrodesis;4. Extension of instrumentation with multiple kwame construct and side connectors. Objective Data: Objective Information: T PRBPSpO2 [id number]/8495% Date/Time09/20 15: 4: 4: 4: 4:00 Range(36.9C [...] ----- Mn/Dy/Year TimeIntakeOutputNet Sep 19, 2021 10:00 [id number] Sep 19, 2021 6:00 [id number] The Intake and Output Totals for the last 24 hours are: IntakeOutputNet [id number] Physical Exam by System: Neurological: A&Ox3 RUE [...] Chronic pain recs- intra-op ketamine, meloxicam post-op, GRAVURE PRESS OPERATOR until good PT eval, Suboxone as [...] the following: I personally evaluated the patient [id number] Comments/ Additional Findings The patient has been [...] inborn buckling of the ligamentum flavum from presybeterian of for significant kyphotic malalignment spine I [...] MRI was performed and with the patient features reporter the medical necessity of considering lumbar laminectomy [...] without removing (more content not included)... Normal [facility] Laboratory - Blood bankon ABO group Nom (Bld) O MG-Ga stroen HubHuman 6 I Work Phone: Blood group antibody investigation (P/RBC) [Interp] Anti-E [facility]-Gastroen Ahonyaology-[facility] 6 [facility] Work Phone: Blood group [...] (Bld) [Interp] Canceled [facility] 6 I Work Phone: Comment on above: CALLED MERA [...] [facility] 6 I Work Phone: [phone] Erythrocyte distribution width (RBC) [Ratio] 13.2 % See Below [facility] 6 I Work Phone: [phone] Comment on above: Reference Range: 11. 5 [...] 6 I Work Phone: RBC (Bld) [#/Vol] 3.93 {x10E12/L} [...] lumbar spine September 18, 2021 ACCESSION NUMBER(S): [id number]; [id number] ORDERING CLINICIAN: DEVANTE STARKS TECHNIQUE: Sagittal axial [...] Electronically signed by: NATALIA WALL DO Normal [facility] NR MRI T-SPINE WOon 09-21-19 22 NR MRI T-SPINE WO Patient Name: MORALES LEE STUDY: MRI T-SPINE WO; MRI L-SPINE WO; 09/20/2021 10:40 pm; 09/20/2021 10:42 pm INDICATION: postop foot weakness, Lie Flat: Yes, Pre Med: No . COMPARISON: MRI December 24, [address] of the lumbar spine September 18, 2021 ACCESSION NUMBER(S): [id number]; [id number] ORDERING CLINICIAN: DEVANTE STARKS TECHNIQUE: Sagittal axial [...] S1-2. Electronically signed by: NATALIA WALL, Normal [facility] No Panel Informationon 09-21 0.0 {/100_WBC} [...] Preop Checklist Preop Checklist: Preop Checklist: Arrival [id number] Arrival Time11:00 Procedure Typere-exploration of spine Temperature C36.2 degrees C Temperature F97.1 degrees F Heart Rate91 beats per minute Respiratory Rate18 breath per minute Blood Pressure Qnivctmm399 mm/Hg Blood Pressure Qyqvmuflz25 mm/Hg COVID 19 Results in Last 7 [...] 21-Sep-2021 11:17 by Linh Buchanan (RN) Normal [facility] REQUEST-LEUKOREDUCED RED ANJU LSon 09-21-2021 REQUEST-LEUKOREDUCED RED CELLS ORDER RECD Normal [facility] Comment on above: Performed By: #### A FPA3 #### [facility] [address] [place] [id number] TYPE + SCREENon 09-21-2021 ABO TYPE O Normal [facility] Comment on above: Performed By: #### A FPA3 #### [facility] [address] [place] [address] RH TYPE Positive Normal [facility] Comment on above: Performed By: #### A FPA3 #### [facility] [address] [place] [address] ABO TYPE Canceled Normal [facility] Comment on above: Order Comment: VENECIA ESPINO, 09/21/2021 05:08TEST TYPE + SCREEN WAS CANCELLED, 09/21/2021 05:06 NO PHLEB ID ON TUBE. Result Comment: CALL ED MERA ESPINO, 09/21/2021 05:08 Performed By: #### A FPA3 #### [facility] [address] [place] [address] RH TYPE Canceled Normal [facility] Comment on above: Order Comment: VENECIA ESPINO, 09/21/2021 05:08TEST TYPE + SCREEN WAS CANCELLED, 09/21/2021 05:06 NO PHLEB ID ON TUBE. Result Comment: CALL ED MERA ESPINO, 09/21/2021 05:08 Performed By: #### A FPA3 #### [facility] [address] [place] [address] CBCon 09-20-2021 Erythrocyte distribution width (RBC) [Ratio] 13.2 % Normal 11.5 - 14.5 [facility] Comment on above: Performed By: #### C BC #### [facility] [address] [place] [address] Hematocrit (Bld) [Volume fraction] 30.8 % Low 36.0 - 46.0 [facility] Comment on above: Performed By: #### C BC #### [facility] [address] [place] [address] Hemoglobin (Bld) [Mass/Vol] 9.8 g/dL Low 12.0 - 16.0 [facility] Comment on above: Performed By: #### C BC #### [facility] [address] [place] [address] MCHC (RBC) [Mass/Vol] 31.8 g/dL Low 32.0 - 36.0 [facility] Comment on above: Performed By: #### C BC #### [facility] [address] [place] [address] MCV (RBC) [Entitic vol] 93 fL Normal 80 - 100 [facility] Comment on above: Performed By: #### C BC #### [facility] [address] [place] [address] NUCLEATED RBC 0.0 /100 WBC Normal 0.0-0.0 [facility] Comment on above: Performed By: #### C BC #### [facility] [address] [place] [address] Platelets (Bld) [#/Vol] 224 10*3/uL Normal 150 - 450 [facility] Comment on above: Performed By: #### C BC #### [facility] [address] [place] [address] RBC 3.32 x10E12/L Low 4.00 - 5.20 [facility] Comment on above: Performed By: #### C BC #### [facility] [address] [place] [address] WBC (Bld) [#/Vol] 12.1 10*3/uL High 4.4 - 11.3 [facility] Comment on above: Performed By: #### C #### [facility] [address] [place] [address] Daily Progress Note-Nuha jinny 09-20-2021 Daily Progress Note-Neurosurgery Service: Neurosurgery Subjective Data: MORALES LEE is a 46 year old Female who is Hospital Day # 6 and POD #2 for 1. Exploration of spinal fusion;2. Reduction of L4/5 dislocation;2. L5-pelvis instrumented fusion with posterolateral arthrodesis;4. Extension of instrumentation with multiple kwame construct and side connectors. Objective Data: Objective Information: T PRBPSpO2 [id number]/5095% Date/Time09/19 16: 1: 16: 1: 1:34 Range(36.7C - 36.7C ) (84 - 110 ) (18 - 18 ) (82 - 118 )/ (50 - 97 ) (94% - 97% ) As of 19-Sep-2021 08:00:00, patient is on 2 L/min of oxygen via nasal cannula. ---- Intake and Output ----- Mn/Dy/Year TimeIntakeOutputNet Sep 18, 2021 10:00 [id number] The Intake and Output Totals for the [...] chronic pain recs- intra-op ketamine, meloxicam post-op, GRAVURE PRESS OPERATOR until good PT eval, Suboxone as [...] Updated: 21-Sep-2021 11:28 by Perez Carlisle) Normal [facility] Laboratory - Hematology and Cell countson [...] 20-Sep-2021 12:25 by Carole Carlos (OT) Normal [facility] PT Evaluation v2-attemptedon 09-20-2021 PT Evaluation v2-attempted Rehab: Info: Mode of Treatmentattempted Time IN12:00 Evaluation Not PerformedPer RN pt not appropriate for therapy, pt continues to have low BP and plan to receive blood, will hold and reattempt as appropriate Electronic Signatures: Kaykay Yoo (PT) (Signed 20-Sep-2021 12:42) Authored: Info Last Updated: 20-Sep-2021 12:42 by Kaykay Yoo (PT) Normal [facility] REQUEST-LEUKOREDUCED RED ANJU LSon 09-20-2021 REQUEST-LEUKOREDUCED RED CELLS ORDER RECD Normal [facility] Comment on above: Performed By: #### R ENAL #### [facility] [address] [place] [address] CBCon 09-19-2021 Erythrocyte distribution width (RBC) [Ratio] 12.4 % Normal 11.5 - 14.5 [facility] Comment on above: Performed By: #### R ENAL #### [facility] [address] [place] [address] Hematocrit (Bld) [Volume fraction] 38.3 % Normal 36.0 - 46.0 [facility] Comment on above: Performed By: #### R ENAL #### [facility] [address] [place] [address] Hemoglobin (Bld) [Mass/Vol] 13.4 g/dL Normal 12.0 - 16.0 [facility] Comment on above: Performed By: #### R ENAL #### [facility] [address] [place] [address] MCHC (RBC) [Mass/Vol] 35.0 g/dL Normal 32.0 - 36.0 [facility] Comment on above: Performed By: #### R ENAL #### [facility] [address] [place] [address] MCV (RBC) [Entitic vol] 85 fL Normal 80 - 100 [facility] Comment on above: Performed By: #### R ENAL #### [facility] [address] [place] [address] NUCLEATED RBC 0.0 /100 WBC Normal 0.0-0.0 [facility] Comment on above: Performed By: #### R ENAL #### [facility] [address] [place] [address] Platelets (Bld) [#/Vol] 326 10*3/uL Normal 150 - 450 [facility] Comment on above: Performed By: #### R ENAL #### [facility] [address] [place] [address] RBC 4.51 x10E12/L Normal 4.00 - 5.20 [facility] Comment on above: Performed By: #### R ENAL #### [facility] [address] [place] [address] WBC (Bld) [#/Vol] 20.5 10*3/uL High 4.4 - 11.3 [facility] Comment on above: Performed By: #### R ENAL #### [facility] [address] [place] [address] CBC AND DIFFERENTIALon 09-19 % AUTOMATED IMMATURE GRAN 0.6 % Normal 0.0 - 0.9 [facility] Comment on above: Result Comment: Jaleesa ture Granulocyte Count (IG) includes promyelocytes, myelocytes and metamyelocytes but does not include bands. Percent differential counts (%) should be interpreted in the context of the absolute cell counts (cells/L). Performed By: #### V FPA3 #### [facility] [address] [place] [address] Basophils (Bld) [#/Vol] 0.03 10*3/uL Normal 0.00 - 0.10 [facility] Comment on above: Performed By: #### V FPA3 #### [facility] [address] [place] [address] Basophils/100 WBC (Bld) 0.1 % Normal 0.0 - 2.0 [facility] Comment on above: Performed By: #### V FPA3 #### [facility] [address] [place] [address] Eosinophils (Bld) [#/Vol] 0.01 10*3/uL Normal 0.00 - 0.70 [facility] Comment on above: Performed By: #### V FPA3 #### [facility] [address] [place] [address] Eosinophils/100 WBC (Bld) 0.0 % Normal 0.0 - 6.0 [facility] Comment on above: Performed By: #### V FPA3 #### [facility] [address] [place] [address] Erythrocyte distribution width (RBC) [Ratio] 12.9 % Normal 11.5 - 14.5 [facility] Comment on above: Performed By: #### V FPA3 #### [facility] [address] [place] [address] Hematocrit (Bld) [Volume fraction] 38.3 % Normal 36.0 - 46.0 [facility] Comment on above: Performed By: #### V FPA3 #### [facility] [address] [place] [address] Hemoglobin (Bld) [Mass/Vol] 12.7 g/dL Normal 12.0 - 16.0 [facility] Comment on above: Performed By: #### V FPA3 #### [facility] [address] [place] [address] Lymphocytes (Bld) [#/Vol] 2.89 10*3/uL Normal 1.20 - 4.80 [facility] Comment on above: Performed By: #### V FPA3 #### [facility] [address] [place] [address] Lymphocytes/100 WBC (Bld) 13.5 % Normal 13.0 - 44.0 [facility] Comment on above: Performed By: #### V FPA3 #### [facility] [address] [place] [address] MCHC (RBC) [Mass/Vol] 33.2 g/dL Normal 32.0 - 36.0 [facility] Comment on above: Performed By: #### V FPA3 #### [facility] [address] [place] [address] MCV (RBC) [Entitic vol] 89 fL Normal 80 - 100 [facility] Comment on above: Performed By: #### V FPA3 #### [facility] [address] [place] [address] Monocytes (Bld) [#/Vol] 1.23 10*3/uL High 0.10 - 1.00 [facility] Comment on above: Performed By: #### V FPA3 #### [facility] [address] [place] [address] Monocytes/100 WBC (Bld) 5.7 % Normal 2.0 - 10.0 [facility] Comment on above: Performed By: #### V FPA3 #### [facility] [address] [place] [address] Neutrophils (Bld) [#/Vol] 17.16 10*3/uL High 1.20 - 7.70 [facility] Comment on above: Performed By: #### V FPA3 #### [facility] [address] [place] [address] Neutrophils/100 WBC (Bld) 80.1 % Normal 40.0 - 80.0 [facility] Comment on above: Performed By: #### V FPA3 #### [facility] [address] [place] [address] NUCLEATED RBC 0.0 /100 WBC Normal 0.0-0.0 [facility] Comment on above: Performed By: #### V FPA3 #### [facility] [address] [place] [address] Platelets (Bld) [#/Vol] 401 10*3/uL Normal 150 - 450 [facility] Comment on above: Performed By: #### V FPA3 #### [facility] [address] [place] [address] RBC 4.28 x10E12/L Normal 4.00 - 5.20 [facility] Comment on above: Performed By: #### V FPA3 #### [facility] [address] [place] [address] WBC (Bld) [#/Vol] 21.5 10*3/uL High 4.4 - 11.3 [facility] Comment on above: Performed By: #### V FPA3 #### [facility] [address] [place] [address] COAGULATION SCREENon 022 aPTT Coag (Bld) [Time] 29 s Normal 26 - 39 [facility] Comment on above: Result Comment: Note new reference range as of 08/04/2021 at 10:00am. Performed By: #### R ENAL #### [facility] [address] [place] [address] PT Coag (PPP) [Time] 11.5 s Normal 9.8 - 13.4 [facility] Comment on above: Result Comment: Note new reference range as of 08/04/2021 at 10:00am. Performed By: #### R ENAL #### [facility] [address] [place] [address] PT, INR 1.0 Normal 0.9 - 1.1 [facility] Comment on above: Performed By: #### R ENAL #### [facility] [address] [place] [address] Complete Blood Count + Diffe vidya 09-19-2021 [...] connectors. Objective Data: Objective Information: T PRBPSpO2 [id number]/8596% Date/Time09/18 17: 17: 17: 17: 17:40 Range(36.4C [...] ----- Mn/Dy/Year TimeIntakeOutputNet Sep 17, 2021 10:00 [id number] The Intake and Output Totals for the last 24 hours are: IntakeOutputNet [id number] Physical Exam by System: Neurological: A&Ox3 RUE D5, B5, T5, HG5, IO5 LUE D4+, B4+, T4+, HG4+, IO5 RLE HF 4+, KE4+, PF5, DF5 (pain limited) LLE HF 4-, KE4-, PF4, DF5 Recent Lab Results: Results: Recent Arterial Blood Gas Results 09/18/2021 11:48 [id number] 24 h range: ( 219 - 224 ) pH7.44 24 h range: ( 7.44 - 7.45 ) mCI998 24 h range: ( 37 - 40 ) NS3383 24 h range: ( 100 - 100 ) Base Excess2.8 24 h range: ( 1.8 - 2.8 ) Fmistgtchmw98.2 24 h range: ( 25.7 - 27.2 [...] the note. I personally evaluated the patient [id number] Comments/ Additional Findings Patients postoperative CT scan [...] Assessment an (more content not included)... Normal [facility] Laboratory - Coagulationon 0 09-19-2021 aPTT Coag (PPP) [Time] 29 s 26 - 39 [facility]astroen terology-[facility] lwChannelBreeze 6 [employer] Work Phone: Comment on above: Note new reference esther quiñones as of 08/04/2021 at 10:00am. INR Coag (PPP) [Relative time] 1.0 {INR} 0.9 - 1.1 [facility]-Gastroen terology-[facility] lwell 6 [employer] Work Phone: PT Coag (PPP) [Time] 11.5 s 9.8 - 13.4 [facility]-G astroen terology-Rosendo moura 6 [facility] Work Phone: Comment on above: Note new reference esther quiñones as of 08/04/2021 at 10:00am. MAGNESIUMon 09-19-2021 Magnesium [Mass/Vol] 1.59 mg/dL Low 1.60 - 2.40 [facility] Comment on above: Performed By: #### R ENAL #### [facility] [address] [place] [address] PT Evaluation v2-attemptedon 09-19-2021 PT Evaluation v2-attempted Rehab: Info: Mode of Treatmentattempted Time IN11:37 Time OUT11:50 Total Treatment [id number] Evaluation Not PerformedHistory obtained, BP assessed in supine 79/54mmHg, RN notified and redone with 71/51mmHg, will hold PT eval at this time and reattempt as medically appropriate Electronic Signatures: Kaykay Yoo (PT) (Signed 19-Sep-2021 12:14) Authored: Info Last Updated: 19-Sep-2021 12:14 by Kaykay Yoo (PT) Normal [facility] RENAL FUNCTION PANELon 09-19 Albumin [Mass/Vol] 3.4 g/dL Normal 3.4 - 5.0 [facility] Comment on above: Performed By: #### A FPA3 #### [facility] [address] [place] [address] Anion gap [Moles/Vol] 18 mmol/L Normal 10 - 20 [facility] Comment on above: Performed By: #### A FPA3 #### [facility] [address] [place] [address] Calcium [Mass/Vol] 8.3 mg/dL Low 8.6 - 10.6 [facility] Comment on above: Performed By: #### A FPA3 #### [facility] [address] [place] [address] Chloride [Moles/Vol] 100 mmol/L Normal 98 - 107 [facility] Comment on above: Performed By: #### A FPA3 #### [facility] [address] [place] [address] Creatinine [Mass/Vol] 0.60 mg/dL Normal 0.50 - 1.05 [facility] Comment on above: Performed By: #### A FPA3 #### [facility] [address] [place] [address] eGFR FEMALE >90 Normal >90 [facility] Comment on above: Result Comment: CALC ULATIONS OF ESTIMATED GFR ARE PERFORMED USING THE 2020 CKD-EPI STUDY REFIT EQUATION WITHOUT THE RACE VARIABLE FOR THE IDMS-TRACEABLE CREATININE METHODS. https://jasn.asnjournals.org/content/early/ASN.9659043 988 Performed By: #### A FPA3 #### [facility] [address] [place] [address] Glucose [Mass/Vol] 82 mg/dL Normal 74 - 99 [facility] Comment on above: Performed By: #### A FPA3 #### [facility] [address] [place] [address] HCO3 (Bld) [Moles/Vol] 26 mmol/L Normal 21 - 32 [facility] Comment on above: Performed By: #### A FPA3 #### [facility] [address] [place] [address] Phosphate [Mass/Vol] 2.8 mg/dL Normal 2.5 - 4.9 [facility] Comment on above: Result Comment: The performance characteristics of phosphorus testing in heparinized plasma have been validated by the individual laboratory site where testing is performed. Testing on heparinized plasma is not approved by the FDA; however, such approval is not necessary. Performed By: #### A FPA3 #### [facility] [address] [place] [address] Potassium [Moles/Vol] 4.5 mmol/L Normal 3.5 - 5.3 [facility] Comment on above: Performed By: #### A FPA3 #### [facility] [address] [place] [address] Sodium [Moles/Vol] 139 mmol/L Normal 136 - 145 [facility] Comment on above: Performed By: #### A FPA3 #### [facility] [address] [place] [address] Urea nitrogen [Mass/Vol] 9 mg/dL Normal 6 - 23 [facility] Comment on above: Performed By: #### A FPA3 #### [facility] [address] [place] [address] Albumin [Mass/Vol] 3.6 g/dL Normal 3.4 - 5.0 [facility] Comment on above: Performed By: #### R ENAL #### [facility] [address] [place] [address] Anion gap [Moles/Vol] 13 mmol/L Normal 10 - 20 [facility] Comment on above: Performed By: #### R ENAL #### [facility] [address] [place] [address] Calcium [Mass/Vol] 8.9 mg/dL Normal 8.6 - 10.6 [facility] Comment on above: Performed By: #### R ENAL #### [facility] [address] [place] [address] Chloride [Moles/Vol] 100 mmol/L Normal 98 - 107 [facility] Comment on above: Performed By: #### R ENAL #### [facility] [address] [place] [address] Creatinine [Mass/Vol] 0.51 mg/dL Normal 0.50 - 1.05 [facility] Comment on above: Performed By: #### R ENAL #### [facility] [address] [place] [address] eGFR FEMALE >90 Normal >90 [facility] Comment on above: Result Comment: CALC ULATIONS OF ESTIMATED GFR ARE PERFORMED USING THE 2020 CKD-EPI STUDY REFIT EQUATION WITHOUT THE RACE VARIABLE FOR THE IDMS-TRACEABLE CREATININE METHODS. https://jasn.asnjournals.org/content/early/ASN.8841352 988 Performed By: #### R ENAL #### [facility] [address] [place] [address] Glucose [Mass/Vol] 123 mg/dL High 74 - 99 [facility] Comment on above: Performed By: #### R ENAL #### [facility] [address] [place] [address] HCO3 (Bld) [Moles/Vol] 28 mmol/L Normal 21 - 32 [facility] Comment on above: Performed By: #### R ENAL #### [facility] [address] [place] [address] Phosphate [Mass/Vol] 2.8 mg/dL Normal 2.5 - 4.9 [facility] Comment on above: Result Comment: The performance characteristics of phosphorus testing in heparinized plasma have been validated by the individual laboratory site where testing is performed. Testing on heparinized plasma is not approved by the FDA; however, such approval is not necessary. Performed By: #### R ENAL #### [facility] [address] [place] [address] Potassium [Moles/Vol] 4.3 mmol/L Normal 3.5 - 5.3 [facility] Comment on above: Performed By: #### R ENAL #### [facility] [address] [place] [address] Sodium [Moles/Vol] 137 mmol/L Normal 136 - 145 [facility] Comment on above: Performed By: #### R ENAL #### [facility] [address] [place] [address] Urea nitrogen [Mass/Vol] 8 mg/dL Normal 6 - 23 [facility] Comment on above: Performed By: #### R ENAL #### [facility] [address] [place] [address] Renal Function Panelon 09-19 Albumin BCP dye [...] en terology-[facility] Work Phone: [phone] Creatinine [Mass/Vol] 0.60 mg/dL See Below [facility]Gastroen terology-[facility] Work Phone: Comment on above: Reference Range: 0.5 0 - 1.05 Glucose [Mass/Vol] 82 mg/dL 74 - 99 [facility]-Gas troen terology-[facility]well 6 [facility] Work Phone: Phosphate [Mass/Vol] 2.8 mg/dL 2.5 - 4.9 [facility]-G astroen terology-[facility] lwell 6 [facility] Work Phone: [phone] Comment on above: The performance arsalan acteristics [...] >90 >90 [facility]-G astroen terology-[facility]well 6 [facility] Work Phone: Comment on above: CALCULATIONS OF IVY MATED GFR ARE PERFORMED USING THE 2020 CKD-EPI STUDY REFIT EQUATION WITHOUT THE RACE VARIABLE FOR THE IDMS-TRACEABLE CREATININE METHODS.https://jasn.asnjournals.org/content/early//ASN .6967956094 ANTIBODY IDENT.on 09-18-2021 ANTIBODY IDENT. Anti-E Normal [facility] Comment on above: Performed By: #### A FPA3 #### [facility] [address] [place] [address] ARTERIAL FULL PANELon 2021 Anion gap [Moles/Vol] 5 mmol/L Low 10 - 25 [facility] Comment on above: Performed By: #### A FPA3 ####[id number] [place] [address] BASE EXCESS-BLOOD 2.8 mmol/L Normal -2.0 - 3.0 [facility] Comment on above: Performed By: #### A FPA3 ####[id number] [place] [address] BICARB, CALCULATED 27.2 mmol/L High 22.0 - 26.0 [facility] Comment on above: Performed By: #### A FPA3 ####[id number] [place] [address] CALCIUM,IONIZED 1.20 mmol/L Normal 1.10 - 1.33 [facility] Comment on above: Performed By: #### A FPA3 ####[id number] [place] [address] Chloride [Moles/Vol] 106 mmol/L Normal 98 - 107 [facility] Comment on above: Performed By: #### A FPA3 ####[id number] [place] [address] Glucose [Mass/Vol] 149 mg/dL High 74 - 99 [facility] Comment on above: Performed By: #### A FPA3 ####[id number] [place] [address] Hematocrit (Bld) [Volume fraction] 38.0 % Normal 36.0 - 46.0 [facility] Comment on above: Performed By: #### A FPA3 ####[id number] [place] [address] HGB,CALCULATED 12.9 g/dL Normal 12.0 - 16.0 [facility] Comment on above: Performed By: #### A FPA3 ####[id number] [place] [address] Lactate [Moles/Vol] 0.9 mmol/L Normal 0.4 - 2.0 [facility] Comment on above: Performed By: #### A FPA3 ####[id number] [place] [address] Oxygen (Bld) [Partial pressure] 219 mm[Hg] High 85 - 95 [facility] Comment on above: Performed By: #### A FPA3 ####[id number] [place] [address] PATIENT TEMPERATURE 37.0 degrees C Normal U [facility] Comment on above: Result Comment: NOTE : PATIENT RESULTS ARE NOT CORRECTED FOR TEMPERATURE. Performed By: #### A FPA3 ####[id number] [place] [address] PCO2 40 mmHg Normal 38 - 42 [facility] Comment on above: Performed By: #### A FPA3 ####[id number] [place] [address] pH (Bld) 7.44 [pH] High 7.38 - 7.42 [facility] Comment on above: Performed By: #### A FPA3 ####[id number] [place] [address] Potassium [Moles/Vol] 4.4 mmol/L Normal 3.5 - 5.3 [facility] Comment on above: Performed By: #### A FPA3 ####[id number] [place] [address] SO2 100 % Normal 94 - 100 [facility] Comment on above: Performed By: #### A FPA3 ####[id number] [place] [address] Sodium [Moles/Vol] 134 mmol/L Low 136 - 145 [facility] Comment on above: Performed By: #### A FPA3 ####[id number] [place] [address] Anion gap [Moles/Vol] 7 mmol/L Low 10 - 25 [facility] Comment on above: Performed By: #### A FPA3 #### [facility] [address] [place] [address] BASE EXCESS-BLOOD 1.8 mmol/L Normal -2.0 - 3.0 [facility] Comment on above: Performed By: #### A FPA3 #### [facility] [address] [place] [address] BICARB, CALCULATED 25.7 mmol/L Normal 22.0 - 26.0 [facility] Comment on above: Performed By: #### A FPA3 #### [facility] [address] [place] [address] CALCIUM,IONIZED 1.20 mmol/L Normal 1.10 - 1.33 [facility] Comment on above: Performed By: #### A FPA3 #### [facility] [address] [place] [address] Chloride [Moles/Vol] 105 mmol/L Normal 98 - 107 [facility] Comment on above: Performed By: #### A FPA3 #### [facility] [address] [place] [address] Glucose [Mass/Vol] 174 mg/dL High 74 - 99 [facility] Comment on above: Performed By: #### A FPA3 #### [facility] [address] [place] [address] Hematocrit (Bld) [Volume fraction] 37.0 % Normal 36.0 - 46.0 [facility] Comment on above: Performed By: #### A FPA3 #### [facility] [address] [place] [address] HGB,CALCULATED 12.6 g/dL Normal 12.0 - 16.0 [facility] Comment on above: Performed By: #### A FPA3 #### [facility] [address] [place] [address] Lactate [Moles/Vol] 1.1 mmol/L Normal 0.4 - 2.0 [facility] Comment on above: Performed By: #### A FPA3 #### [facility] [address] [place] [address] Oxygen (Bld) [Partial pressure] 224 mm[Hg] High 85 - 95 [facility] [facility] Comment on above: Performed By: #### A FPA3 #### [facility] [address] [place] [address] PATIENT TEMPERATURE 37.0 degrees C Normal [facility] Comment on above: Result Comment: NOTE : PATIENT RESULTS ARE NOT CORRECTED FOR TEMPERATURE. Performed By: #### A FPA3 #### [facility] [address] [place] [address] PCO2 37 mmHg Low 38 - 42 [facility] Comment on above: Performed By: #### A FPA3 #### [facility] [address] [place] [address] pH (Bld) 7.45 [pH] High 7.38 - 7.42 [facility] Comment on above: Performed By: #### A FPA3 #### [facility] [address] [place] [address] Potassium [Moles/Vol] 3.9 mmol/L Normal 3.5 - 5.3 [facility] Comment on above: Performed By: #### A FPA3 #### [facility] [address] [place] [address] SO2 100 % Normal 94 - 100 [facility] Comment on above: Performed By: #### A FPA3 #### [facility] [address] [place] [address] Sodium [Moles/Vol] 134 mmol/L Low 136 - 145 [facility] Comment on above: Performed By: #### A FPA3 #### [facility] [address] [place] [address] CT L Spine without Contrasto n 09-18-2021 CT Lumbar spine limited WO contrast Normal [facility]-Gastroen terology-[facility]oura 6 I Work Phone: Daily Progress Note-Anesthes [...] connectors. Objective Data: Objective Information: T PRBPSpO2 [id number]/4391% Date/Time09/18 6: 5: 5: 5: 5:56 Range(37C [...] Recent Arterial Blood Gas Results 09/18/2021 11:48 [id number] 24 h range: ( 219 - 224 ) pH7.44 24 h range: ( 7.44 - 7.45 ) iGN767 24 h range: ( 37 - 40 ) JP8947 24 h range: ( 100 - 100 ) Base Excess2.8 24 h range: ( 1.8 - 2.8 ) Rnwjervzyxd71.2 24 h range: ( 25.7 - 27.2 ) Assessment and Plan: Code Status: Code StatusFull Code Electronic Signatures: Bryan Mora) (Signed 18-Sep-2021 14:47) Authored: Service, Subjective Data, Objective Data, Assessment and Plan, Note Completion Last Updated: 18-Sep-2021 14:47 by Bryan Mora) Normal [facility] Daily Progress Note-Neurosjudy stearns 09-18-2021 Daily Progress Note-Neurosurgery Service: Neurosurgery Subjective Data: MORALES LEE is a 46 year old Female who is Hospital Day # 4. Objective Data: Objective Information: T PRBPSpO2 [id number]/4391% Date/Time09/18 6: 5: 5: 5: 5:56 Range(36.6C [...] Severe ---- Intake and Output ----- Mn[facility]Dy[facility] Sep 17, 2021 10:00 [id number] Sep 17, 2021 2:00 [id number] The Intake and Output Totals for the [...] the note. I personally evaluated the patient [id number] Electronic Signatures: Fidel Maciel (Resident)) (Signed 18-Sep-2021 06:55) Authored: Service, Subjective Data, Objective Data, Assessment and Plan, Note Completion Lex Frederick) (Signed 19-Sep-2021 10:18) Authored: Note Completion Co-Signer: Service, Subjective Data, Objective Data, Assessment and Plan, Note Completion Last Updated: 19-Sep-2021 10:18 by Lex Frederick) Normal [facility] Laboratory - Chemistry and C hemistry [...] 6 [facility] Work Phone: HCO3 (Bld) [Moles/Vol] 27.2 mmol/L [...] 150 - 450 [facility]-Gastroen terology-[facility] 6 [facility] Work Phone: RBC (Bld) [#/Vol] 4.51 {x10E12/L} See Below [facility] -Gastroen terology-[facility] 6 [facility] Work Phone: Comment on above: Reference Range: 4.0 0 - 5.20 WBC (Bld) [#/Vol] 20.5 10*3/uL above high threshold 4.4 - 11.3 [facility]astroen [facility]ology-[facility] 6 [facility] Work Phone: Hematocrit (Bld) [Volume fraction] 38.0 [...] threshold See Below [facility]-Gastroen terology-[facility] 6 [facility] Work Phone: Comment on above: Reference Range: 1.6 0 - 2.[address] L-SPINE WO CONTRASTon 09-18-[address] L-SPINE WO CONTRAST Patient Name: MORALES LEE STUDY: CT L-SPINE WO CONTRAST 09/18/2021 7:32 pm INDICATION: difficulty dorsiflex bilaterally, Lie Flat: Yes COMPARISON: CT of the lumbar spine dated 10/07/2020. MRI dated 12/11/2020 ACCESSION NUMBER(S): [id number] ORDERING CLINICIAN: ANGELO JUAREZ TECHNIQUE: Thin cut [...] as stated. This study was interpreted at [facility], [place], [place]. Electronically signed by: BOONE LAO MD Normal [facility] No Panel Informationon 09-18 0.0 {/100_WBC} 0.0-0.0 [facility]-Gastroe n terology-[facility] 6 I Work Phone: Please click on the link to view the study images Normal [facility]astroen terology-[facility] 6 I Work Phone: 2.8 mmol/L -2.0 - 3.0 [...] Respiratory Rate15 breath per minute Blood Pressure Sdxiktqp48 mm/Hg Blood Pressure Gounphvvt93 mm/Hg COVID 19 Results in Last 7 [...] 18-Sep-2021 06:59 by Lian Zuleta (SANAZ) Normal [facility] Radiologyon 09-18-2021 XR Chest Single view [...] RACE VARIABLE FOR THE IDMS-TRACEABLE CREATININE METHODS.https://jasn.asnjournals.org/content/early//ASN .7811497641 TH CHEST; 1 VIEWon 2 TH CHEST; 1 VIEW Patient Name: MORALES LEE STUDY: CHEST; 1 VIEW; 09/18/2021 2:38 pm INDICATION: s/p central line placement (right IJ double lumen) . COMPARISON: Radiograph dated 09/15/2021 ACCESSION NUMBER(S): [id number] ORDERING CLINICIAN: BRYAN MORA FINDINGS: Right IJ [...] Electronically signed by: LORELEI JOHNSTON MD Normal [facility] VENOUS FULL PANELon 09-18-19 Anion gap [Moles/Vol] 6 mmol/L Low 10 - 25 [facility] Comment on above: Performed By: #### V FPA3 #### [facility] [address] [place] [address] BASE EXCESS-BLOOD 3.9 mmol/L High -2.0 - 3.0 [facility] Comment on above: Performed By: #### V FPA3 #### [facility] [address] [place] [address] BICARB, CALCULATED 28.5 mmol/L High 22.0 - 26.0 [facility] Comment on above: Performed By: #### V FPA3 #### [facility] [address] [place] [address] CALCIUM,IONIZED 1.17 mmol/L Normal 1.10 - 1.33 [facility] Comment on above: Performed By: #### V FPA3 #### [facility] [address] [place] [address] Chloride [Moles/Vol] 103 mmol/L Normal 98 - 107 [facility] Comment on above: Performed By: #### V FPA3 #### [facility] [address] [place] [address] Glucose [Mass/Vol] 188 mg/dL High 74 - 99 [facility] Comment on above: Performed By: #### V FPA3 #### [facility] [address] [place] [address] Hematocrit (Bld) [Volume fraction] 39.0 % Normal 36.0 - 46.0 [facility] Comment on above: Performed By: #### V FPA3 #### [facility] [address] [place] [address] HGB,CALCULATED 13.3 g/dL Normal 12.0 - 16.0 [facility] Comment on above: Performed By: #### V FPA3 #### [facility] [address] [place] [address] Lactate [Moles/Vol] 1.2 mmol/L Normal 0.4 - 2.0 [facility] Comment on above: Performed By: #### V FPA3 #### [facility] [address] [place] [address] Oxygen (Bld) [Partial pressure] 56 mm[Hg] High 35 - 45 [facility] Comment on above: Performed By: #### V FPA3 #### [place] [address] [place] [address] PATIENT TEMPERATURE 37.0 degrees C Normal [facility] Comment on above: Result Comment: NOTE : PATIENT RESULTS ARE NOT CORRECTED FOR TEMPERATURE. Performed By: #### V FPA3 #### [facility] [address] [place] [address] PCO2 42 mmHg Normal 41 - 51 [facility] Comment on above: Performed By: #### V FPA3 #### [facility] [address] [place] [address] pH (Bld) 7.44 [pH] High 7.33 - 7.43 [facility] Comment on above: Performed By: #### V FPA3 #### [facility] [address] [place] [address] Potassium [Moles/Vol] 4.1 mmol/L Normal 3.5 - 5.3 [facility] Comment on above: Performed By: #### V FPA3 #### [facility] [address] [place] [address] SO2 91 % High 45 - 75 [facility] Comment on above: Performed By: #### V FPA3 #### [facility] [address] [place] [address] Sodium [Moles/Vol] 133 mmol/L Low 136 - 145 [facility] Comment on above: Performed By: #### V FPA3 #### [facility] [address] [place] [address] CORONAVIRUS 2019, SCREEN ASY MPTOMATICon 09-17-2021 SARS-CoV-2 (COVID-19) RNA ADRIÁN+probe Ql (Unsp spec) Not detected Normal Not Detected [facility] Comment on above: Result Comment: . This test has received FDA Emergency Use Authorization (EUA) and has been verified by [facility] ([facility]). This test is only authorized for the duration of time that circumstances exist to justify the authorization of the emergency use of in vitro diagnostic tests for the detection of SARS-CoV-2 virus and/or diagnosis of COVID-19 infection under section 564(b)(1) of the Act, 21 U.S.C. 360bbb-3(b)(1), unless the authorization is terminated or revoked sooner. [facility] is certified under CLIA-88 as qualified to perform high complexity testing. Testing is performed in the [facility] located at [address] [place] [address]. SARS-CoV-2/Flu/RSV Multiplex Test: Fact sheet for providers: https://www.fda.gov/media/578643/download Fact sheet for patients: https://www.fda.gov/media/166962/download Performed By: #### C OVSC ####[id number] [facility] [place] [address] Lab Specimen Source Nasal, Nasopharyngeal Normal [facility] Comment on above: Performed By: #### C OVSC ####[id number] [place] [address] Coronavirus 2019 RNA by PCR, Screening Asymptomticon 09-17-2021 Coronavirus 2019 RNA by PCR, Screening Asymptomtic Not detected Normal See Below -Gastroen terology-[facility] 6 [facility] Work Phone: Comment on above: SOURCE: Nasal, Nasop haryngealReference Range: Not Detected.This test has received FDA Emergency Use Authorization (EUA) and has been verified by [facility] ([facility]). This test is only authorized for the duration of time that circumstances exist to justify the authorization of the emergency use of in vitro diagnostic tests for the detection of SARS-CoV-2 virus and/or diagnosis of COVID-19 infection under section 564(b)(1) of the Act, 21 U.S.C. 360bbb-3(b)(1), unless the authorization is terminated or revoked sooner. [facility] is certified under CLIA-88 as qualified to perform high complexity testing. Testing is performed in the [facility] located at [address] [place] [address].SARS-CoV-2/Flu/RSV Multiplex Test: Fact sheet for providers: https://www.fda.gov/media/273229/downloadFact sheet for patients: https://www.fda.gov/media/515696/download Covid 19 Resultson 2 SARS-CoV-2 (COVID-19) RNA [...] You may also be contacted by the [facility] to see if any of [...] or Naproxen (Aleve) can also be used. Jdcc-hqx-kjfwcpp cough and cold medicines can be used according to the instructions on the package. Some ysft-deq-yophnag medicines also contain acetaminophen. Make sure you [...] water are not available, use alcohol-based hand mobile lounge driver or operator. Avoid touching your eyes, nose, and mouth [...] 24 mariella (more content not included)... Normal [facility] Daily Progress Note - Psychi atryon [...] pain but found it well-controlled on Dilaudid GRAVURE PRESS OPERATOR and 5/10 mg oxycodone. Pt is [...] he has been working (cardoza at a [employer]), but she looks forward to his arrival [...] her suboxone. Objective: Objective Information: T PRBPSpO2 Value36.18805096/9095% Date/Time09/17 4: 10: 10: 10: 10:00 Range(35.7C - 36.6C ) (81 - 89 ) (10 - 23 ) (73 - 117 )/ (43 - 90 ) (91% - 96% ) As of 17-Sep-2021 08:00:00, patient is on 3 L/min of oxygen via nasal cannula. Pain reported at 09/17 8:00: 8 = Severe ---- Intake and Output ----- Mn/Dy/Year TimeIntakeOutputNet Sep 17, 2021 6:00 [id number] Sep 16, 2021 2:00 [id number] The Intake and Output Totals for the last 24 hours are: IntakeOutputNet [id number] Mental Status Exam: General: Awake, lying in [...] a Da (more content not included)... Normal [facility] Daily Progress Note-Neurosur leonidasgaurang 09-17-2021 Daily Progress Note-Neurosurgery Service: Neurosurgery Subjective Data: MORALES LEE is a 46 year old Female who is Hospital Day # 3. Objective Data: Objective Information: T PRBPSpO2 Value35.1030746/4393% Date/Time09/16 18:5409/16 18:5409/16 18:5409/16 18: 18:54 Range(35.7C - 36.4C ) (81 - 91 ) (15 - 24 ) (87 - 118 )/ (43 - 84 ) (91% - 96% ) As of 16-Sep-2021 18:54:00, patient is on 2 L/min of oxygen via nasal cannula. Pain reported at 09/16 16:34: 10 = Severe ---- Intake and Output ----- Mn[facility]Dy[facility] Sep 16, 2021 2:00 [id number] Physical Exam by System: Neurological: A&Ox3 RUE [...] the note. I personally evaluated the patient [id number] Comments/ Additional Findings I again explained to [...] Updated: 19-Sep-2021 10:16 by Lex Frederick) Normal [facility] HCG,URINEon 09-17-2021 Beta HCG ( test) Ql (U) Negative Normal Negative [facility] Comment on above: Performed By: #### A FPA3 #### [facility] [address] [place] [address] Laboratory - Blood bankon ABO group Nom [...] 09-17-2021 REQUEST-LEUKOREDUCED RED CELLS ORDER RECD Normal [facility] Comment on above: Performed By: #### O PUBLIC RELATIONS REPRESENTATIVE #### [facility] [address] [place] [address] TYPE + SCREENon 09-17-2021 ABO TYPE O Normal [facility] Comment on above: Performed By: #### T +S #### [facility] [address] [place], [place] RH TYPE Positive Normal [facility] Comment on above: Performed By: #### T +S #### [facility] [address] [place], [place] Urine Teston 09-17 HCG ( test) Ql (U) Negative Negative [facility]astroen [facility]ology-[facility] 6 I Work Phone: BNPon 09-16-2021 Natriuretic peptide B (Bld) [Mass/Vol] 37 pg/mL Normal 0 - 99 [facility] Comment on above: Result Comment: . [...] information. Performed By: #### A FPA3 #### [facility] [address] [place], [place] CBC AND DIFFERENTIALon 09-16 % AUTOMATED IMMATURE GRAN 0.5 % Normal 0.0 - 0.9 [facility] Comment on above: Result Comment: Jaleesa ture Granulocyte Count (IG) includes promyelocytes, myelocytes and metamyelocytes but does not include bands. Percent differential counts (%) should be interpreted in the context of the absolute cell counts (cells/L). Performed By: #### C BCDF ####[id number], [place] Basophils (Bld) [#/Vol] 0.04 10*3/uL Normal 0.00 - 0.10 [facility] Comment on above: Performed By: #### C BCDF ####[id number] [place] [address] Basophils/100 WBC (Bld) 0.5 % Normal 0.0 - 2.0 [facility] Comment on above: Performed By: #### C BCDF ####[id number] [place] [address] Eosinophils (Bld) [#/Vol] 0.26 10*3/uL Normal 0.00 - 0.70 [facility] Comment on above: Performed By: #### C BCDF ####[id number] [place] [address] Eosinophils/100 WBC (Bld) 3.0 % Normal 0.0 - 6.0 [facility] Comment on above: Performed By: #### C BCDF ####[id number] [place] [address] Erythrocyte distribution width (RBC) [Ratio] 13.0 % Normal 11.5 - 14.5 [facility] Comment on above: Performed By: #### C BCDF ####[id number] [place] [address] Hematocrit (Bld) [Volume fraction] 42.7 % Normal 36.0 - 46.0 [facility] Comment on above: Performed By: #### C BCDF ####[id number] [place] [address] Hemoglobin (Bld) [Mass/Vol] 14.1 g/dL Normal 12.0 - 16.0 [facility] Comment on above: Performed By: #### C BCDF ####[id number] [place] [address] Lymphocytes (Bld) [#/Vol] 3.17 10*3/uL Normal 1.20 - 4.80 [facility] Comment on above: Performed By: #### C BCDF ####[id number] [place] [address] Lymphocytes/100 WBC (Bld) 37.2 % Normal 13.0 - 44.0 [facility] Comment on above: Performed By: #### C BCDF ####[id number] [place] [address] MCHC (RBC) [Mass/Vol] 33.0 g/dL Normal 32.0 - 36.0 [facility] Comment on above: Performed By: #### C BCDF ####[id number] [place] [address] MCV (RBC) [Entitic vol] 91 fL Normal 80 - 100 [facility] Comment on above: Performed By: #### C BCDF ####[id number] [place] [address] Monocytes (Bld) [#/Vol] 0.47 10*3/uL Normal 0.10 - 1.00 [facility] Comment on above: Performed By: #### C BCDF ####[id number] [place] [address] Monocytes/100 WBC (Bld) 5.5 % Normal 2.0 - 10.0 [facility] Comment on above: Performed By: #### C BCDF ####[id number] [place] [address] Neutrophils (Bld) [#/Vol] 4.55 10*3/uL Normal 1.20 - 7.70 [facility] Comment on above: Performed By: #### C BCDF ####[id number] [place] [address] Neutrophils/100 WBC (Bld) 53.3 % Normal 40.0 - 80.0 [facility] Comment on above: Performed By: #### C BCDF ####[id number] [place] [address] NUCLEATED RBC 0.0 /100 WBC Normal 0.0-0.0 [facility] Comment on above: Performed By: #### C BCDF ####[id number] [place] [address] Platelets (Bld) [#/Vol] 278 10*3/uL Normal 150 - 450 [facility] Comment on above: Performed By: #### C BCDF ####[id number] [place] [address] RBC 4.70 x10E12/L Normal 4.00 - 5.20 [facility] Comment on above: Performed By: #### C BCDF ####[id number] [place] [address] WBC (Bld) [#/Vol] 8.5 10*3/uL Normal 4.4 - 11.3 [facility] Comment on above: Performed By: #### C BCDF ####[id number] [place] [address] COAGULATION SCREENon 022 aPTT Coag (Bld) [Time] 31 s Normal 26 - 39 [facility] Comment on above: Result Comment: Note new reference range as of 08/04/2021 at 10:00am. Performed By: #### V FPA3 #### [facility] [address] [place] [address] PT Coag (PPP) [Time] 11.6 s Normal 9.8 - 13.4 [facility] Comment on above: Result Comment: Note new reference range as of 08/04/2021 at 10:00am. Performed By: #### V FPA3 #### [facility] [address] [place] [address] PT, INR 1.0 Normal 0.9 - 1.1 [facility] Comment on above: Performed By: #### V FPA3 #### [facility] [address] [place] [address] Clinical Event Note-ADMISSIO N CLARIFICATIONon 09-16-2021 Clinical [...] and monitoring for withdrawal. Provider/Team Contact Info-Pager [phone] Electronic Signatures: Sharmin Guaman (COMPUTED TOMOGRAPHY SCANNER OPERATOR-FLAT CLOTHIER) (Signed 16-Sep-2021 12:07) Authored: Clinical Event Note Last Updated: 16-Sep-2021 12:07 by Sharmin Guaman (COMPUTED TOMOGRAPHY SCANNER OPERATOR-FLAT CLOTHIER) Normal [facility] Complete Blood Count + Diffe sonjaon 09-16-2021 Basophils/100 WBC (Bld) 0.5 % 0.0 [...] 10*3/uL 4.4 - 11.3 MG-Gas troen terology-[facility] Work Phone: Complete Blood Count + Differential 0.04 {x10E9/L} See Below MG-Gastroen terology-[facility] 6 [facility] Work Phone: Comment on above: Reference Range: 0.0 0 - 0.10 Complete Blood Count + Differential 0.26 {x10E9/L} See Below [facility]-Gastroen terology-[facility] 6 [facility] Work Phone: Comment on above: Reference Range: 0.0 0 - 0.70 Complete Blood Count + Differential 0.47 {x10E9/L} See Below [facility]-Gastroen terology-[facility] 6 [facility] Work Phone: Comment on above: Reference Range: 0.1 0 - 1.00 Complete Blood Count + Differential 3.17 {x10E9/L} See Below [facility]-Gastroen terology-[facility] 6 I Work Phone: Comment on above: Reference Range: 1.2 0 - 4.80 Complete Blood Count + Differential 4.55 {x10E9/L} See Below [facility]-Gastroen terology-[facility] 6 [facility] Work Phone: Comment on above: Reference [...] 0.0 {/100_WBC} 0.0-0.0 [facility]astroen [facility]ology-[facility] 6 [facility] Work Phone: Consult-Painon 09-16-2021 Consult-Pain Service: [...] the note. I personally evaluated the patient [id number] Electronic Signatures: Chidi Lamar ( (Fellow)) (Signed 16-Sep-2021 08:54) Authored: History of [...] From Consult - Psychiatry 15-Sep-2021 20:42 Normal [facility] Consult-Perioperative Medici neon 09-16-2021 Consult-Perioperativ e [...] penicillin: Unknown Objective: Objective Information: T PRBPSpO2 Value36.13965753/8491% Date/Time09/16 11:131 12:4909/16 12:4909/16 12: 12:49 Range(36.3C - 36.4C [...] 100 mg (more content not included)... Normal [facility] Cult, Urineon 09-16-2021 Bacteria identified Cx Nom (U) Abnormal [facility]-Gastroen terology-[facility] moura 6 [facility] Work Phone: Daily Progress Note-Neurosur jinny 09-16-2021 Daily Progress Note-Neurosurgery Service: Neurosurgery Subjective Data: MORALES LEE is a 46 year old Female who is Hospital Day # 3. Objective Data: Objective Information: T PRBPSpO2 Value36.7679093/6693% Date/Time09/16 1: 4: 4: 4: 4:00 Range(36.3C [...] (suboxone) in AM COWS psych recs SCD's, [facility] Attestation: Note Completion: I am a: Resident/Fellow [...] the note. I personally evaluated the patient [id number] Comments/ Additional Findings TO OR this Tuesday if medically optimized for T12 - Pelvis fusion and Instrumentation. Pain consult for management regrading Suboxone and pain control in the perioperative period. US LE MRI of the lumbar spine., Lex Frederick MD, [facility], FAANS Director - Minimally Invasive Spine Surgery [facility] Neurological Surgery [facility] [employer] [facility] [place], [place] Electronic Signatures: Fidel Maciel (Resident)) (Signed 16-Sep-2021 04:33) Authored: Service, Subjective Data, Objective Data, Assessment and Plan, Note Completion Lex Frederick) (Signed 16-Sep-2021 10:22) Authored: Note Completion Co-Signer: Service, Subjective Data, Objective Data, Assessment and Plan, Note Completion Last Updated: 16-Sep-2021 10:22 by Lex Frederick) Normal [facility] EMR ADDONon 09-16-2021 ADDON CONFIRMATION REQUEST REC'D Normal [facility] Comment on above: Performed By: [...] above: . <100 pg/mL - Heart failure [id number] pg/mL - Intermediate probability of acute heart. [...] [Mass/Vol] 3.5 g/dL Normal 3.4 - 5.0 [facility] Comment on above: Performed By: #### R ENAL #### [facility] [address] [place] [address] Anion gap [Moles/Vol] 14 mmol/L Normal 10 - 20 [facility] Comment on above: Performed By: #### R ENAL #### [facility] [address] [place] [address] Calcium [Mass/Vol] 8.9 mg/dL Normal 8.6 - 10.6 [facility] Comment on above: Performed By: #### R ENAL #### [facility] [address] [place] [address] Chloride [Moles/Vol] 101 mmol/L Normal 98 - 107 [facility] Comment on above: Performed By: #### R ENAL #### [facility] [address] [place] [address] Creatinine [Mass/Vol] 0.63 mg/dL Normal 0.50 - 1.05 [facility] Comment on above: Performed By: #### R ENAL #### [facility] [address] [place] [address] eGFR FEMALE >90 Normal >90 [facility] Comment on above: Result Comment: CALC ULATIONS OF ESTIMATED GFR ARE PERFORMED USING THE 2020 CKD-EPI STUDY REFIT EQUATION WITHOUT THE RACE VARIABLE FOR THE IDMS-TRACEABLE CREATININE METHODS. https://jasn.asnjournals.org/content/early/ASN.3267185 988 Performed By: #### R ENAL #### [facility] [address] [place] [address] Glucose [Mass/Vol] 88 mg/dL Normal 74 - 99 [facility] Comment on above: Performed By: #### R ENAL #### [facility] [address] [place] [address] HCO3 (Bld) [Moles/Vol] 29 mmol/L Normal 21 - 32 [facility] Comment on above: Performed By: #### R ENAL #### [facility] [address] [place] [address] Phosphate [Mass/Vol] 3.4 mg/dL Normal 2.5 - 4.9 [facility] Comment on above: Result Comment: The performance characteristics of phosphorus testing in heparinized plasma have been validated by the individual laboratory site where testing is performed. Testing on heparinized plasma is not approved by the FDA; however, such approval is not necessary. Performed By: #### R ENAL #### [facility] [address] [place] [address] Potassium [Moles/Vol] 3.7 mmol/L Normal 3.5 - 5.3 [facility] Comment on above: Performed By: #### R ENAL #### [facility] [address] [place] [address] Sodium [Moles/Vol] 140 mmol/L Normal 136 - 145 [facility] Comment on above: Performed By: #### R ENAL #### [facility] [address] [place] [address] Urea nitrogen [Mass/Vol] 10 mg/dL Normal 6 - 23 [facility] Comment on above: Performed By: #### R ENAL #### [facility] [address] [place] [address] Renal Function Panelon 09-16 Albumin BCP dye [Mass/Vol] 3.5 g/dL 3.4 - 5.0 [facility] Work Phone: Anion gap [Moles/Vol] 14 mmol/L [...] 140 mmol/L 136 - 145 [facility] troen [facility]ology-[facility] 6 I Work Phone: Urea nitrogen [Mass/Vol] 10 mg/dL 6 - 23 [facility] I Work Phone: Renal Function Panel >90 >90 [facility] astroen terology-[facility] 6 I Work Phone: Comment on above: CALCULATIONS OF IVY MATED GFR ARE PERFORMED USING THE 2020 CKD-EPI STUDY REFIT EQUATION WITHOUT THE RACE VARIABLE FOR THE IDMS-TRACEABLE CREATININE METHODS.https://jasn.asnjournals.org/content/early//ASN .0629435648 UA MICROSCOPICon 09-16-2021 BACTERIA 2+ /HPF Abnormal [facility] Comment on above: Performed By: #### U AMIC ####[id number] [place] [address] Mucus Ql (Urine sed) 1+ /LPF Normal [facility] Comment on above: Performed By: #### U AMIC ####[id number] [place] [address] RBC 3 /HPF Normal 0-5 [facility] Comment on above: Performed By: #### U AMIC ####[id number] [place] [address] SQUAMOUS EPITH. CELLS 2 /HPF Normal [facility] Comment on above: Performed By: #### U AMIC ####[id number] [place] [address] WBC 115 /HPF Abnormal 0-5 [facility] Comment on above: Performed By: #### U AMIC ####[id number] [place] [address] URINALYSISon 09-16-2021 Appearance (U) HAZY Normal CLEAR [facility] Comment on above: Performed By: #### U A ####[id number] [place] [address] Bilirubin Ql (U) Negative Normal NEGATIVE [facility] Comment on above: Performed By: #### U A ####[id number] [place] [address] Color (U) YELLOW Normal STRAW,YELLO W [facility] Comment on above: Performed By: #### U A ####[id number] [place] [address] Glucose Ql (U) Negative Normal NEGATIVE [facility] Comment on above: Performed By: #### U A ####[id number] [place] [address] Hemoglobin Ql (U) Negative Normal NEGATIVE [facility] Comment on above: Performed By: #### U A ####[id number] [place] [address] Ketones Ql (U) Negative Normal NEGATIVE [facility] Comment on above: Performed By: #### U A ####[id number] [place] [address] Leukocyte esterase Test strip Ql (U) LARGE (3+) Abnormal NEGATIVE [facility] Comment on above: Performed By: #### U A ####[id number] [place] [address] Nitrite Ql (U) Positive Abnormal NEGATIVE [facility] Comment on above: Performed By: #### U A ####[id number] [place] [address] pH (U) 6.0 [pH] Normal 5.0 - 8.0 [facility] Comment on above: Performed By: #### U A ####[id number] [place] [address] Protein Ql (U) Negative Normal NEGATIVE [facility] Comment on above: Performed By: #### U A ####[id number] [place] [address] Specific gravity (U) [Rel density] 1.011 Normal 1.005 - 1.035 [facility] Comment on above: Performed By: #### U A ####[id number] [place] [address] Urobilinogen (U) [Mass/Vol] 2.0 mg/dL High 0.0 - 1.9 [facility] Comment on above: Result Comment: Due [...] positive urobilinogen. Performed By: #### U A ####[id number] [place] [address] URINE CULTURE,BACTERIALon URINE CULTURE,BACTERIAL PATIENT: MORALES LEE LOCATION: TONI GRAHAM#: [id number] : 71 AGE: SEX: F ORDERED BY: [...] DOSE DEPENDENT NS=NONSUSCEPTIBLE X=REPORTED IN ERROR Normal [facility] Comment on above: Performed By: #### A FPA3 #### [facility] [address] [place] [address] Urinalysison 09-16-2021 Color (U) YELLOW See Below [...] 1.035 Urinalysis Positive Abnormal NEGATIVE [facility] Work Phone: Urinalysis 2.0 mg/dL above [...] Urinalysis Negative NEGATIVE [facility] I Work Phone: Urinalysis HAZY CLEAR [facility] I Work Phone: Urinalysis, Microscopicon Urinalysis, Microscopic 1+ [facility] I Work Phone: Urinalysis, Microscopic 2+ Abnormal [facility] 6 [facility] Work Phone: Urinalysis, Microscopic 2 {/HPF} [facility] Work Phone: Urinalysis, Microscopic 3 {/HPF} 0-5 [facility] Work Phone: Urinalysis, Microscopic 115 {/HPF} Abnormal 0-5 [facility] Work Phone: VASC LAB Venous Duplex Ultra sound DVTon 09-16-2021 VAS LAB Venous Duplex Ultrasound DVT [place] [address] and Vascular Lab Report Lower Venous Duplex Ultrasound Patient Name: MORALES LEE Reading Physician: [id number] Arjun Romero MD, RPCONUSELO Study Date: 09/16/2021 Referring Physician: [id number] RAGSDALE MRN/PID: [id number] PCP: Accession/Order#: [id number] CC Report to: Date of : 1975 Technologist: Isai Burleson RVT Gender: F Technologist 2: Admission Status: Outpatient Location Performed: [facility] Diagnosis/ICD: M79.89-Left leg swelling; M79.89-Right leg swelling Procedure/CPT: 98101 Peripheral venous duplex scan for DVT complete-81770 CONCLUSIONS: Right Lower Venous: No evidence of [...] Spontaneous/Phasic Peroneal Yes None PTV Yes None [id number] Arjun Romero MD, RPVI Final Normal [facility] VAS LAB Venous Duplex Ultra sound for DVTon 09-16-2021 [facility] LAB Venous Duplex Ultrasound for DVT [facility] Work Phone: No Panel Informationon 09-15 [email or web address]?Ret rieveTestByDateTime?Patient CB=[id number]&Date= 2&Time=19%3a14%3a23%3a00&Te stType=ECG&Site=1&OutputTyp e=PDF&Ext=PDF [facility] [...] I Work Phone: [email or web address]/ [email or web address]?Ret rieveTestByDateTime?Patient GM=[id number]&Date= 2&Time=19%3a14%3a42%3a00&Te stType=ECG&Site=1&OutputTyp e=PDF&Ext=PDF [facility] [...] (Advanced Practice Nurse) done by Concetta Shi ([facility]) Admission - Reconciliation: 15-Sep-2021 19:03 [...] to Incomplete: 30-Sep-2021 14:18 by: Concetta Shi ([facility]) Admission - Reconciliation: 30-Sep-2021 14:20 by: Concetta Shi ([facility]) Home MedicationsEnteredLast Dose TakenReconciled with current Order Reconciliation Comment/ Additional Information acetaminophen 325 mg oral tablet 2 tab(s) orally every 6 hours, as needed while having post operative [id number]-Sqv-2786 Reviewed and Held Ambien CR 12.5 mg oral tablet, extended release 1 tab(s) oral bwi65-Qdo-2837 Zolpidem Tablet (AMBIEN)DOSE = 10 mg Oral At BedtimeNotes from Pharmacy: Substitution For Zolpidem (Ambien CR) 12.5 mg at Bedtime Ambien CR 12.5 mg oral tablet, extended release continued as the inpatient order Zolpidem Ankle Foot Orthosis for foot [id number]-Gvb-8026 Reviewed and Held betamethasone topical valerate 0.1% topical cream 1 milena topical prn 15-Sep-2021 EnteredInError Reviewed and Held Bilateral Prafos - orthotics to fit, - ICD 10: R26.0, M21.37, M62.81 30-Sep-2021 Reviewed and Held calcium-vitamin D 500 mg-200 intl units (5 mcg) oral tablet 1 tab(s) orally 4 times a qzp27-Frv-6291 Calcium 500 mg - Vitamin D 200 [...] times a day, as needed for muscle -Wee-5105 Cyclobenzaprine Tablet (FLEXERIL)DOSE = 10 mg Oral [...] topical 1% topical gel 1 milena topical kek12-Mkq-3477 Reviewed and Held DULoxetine 30 mg oral [...] 2 tab(s) orally once a day, As Dajswi99-Rbe-8153 Reviewed and Held gabapentin 800 mg oral tablet 1 tab(s) oral 3 times a xvf45-Etw-7606 Gabapentin Capsule (NEURONTIN)DOSE = 800 mg Oral 3 Times a Day gabapentin 800 mg oral tablet continued as the inpatient order Gabapentin LEFT AFO -Orthotics to fit, ICD 10: M21.7758-Hkc-2629 Reviewed and Held lidocaine 5% topical film Apply topically to affected area once a day, As Needed near surgical incision for incisional pain 15-Sep-2021 EnteredInError Reviewed and Held lisinopril 20 mg oral tablet 1 tab(s) oral once a yfb76-Fio-4628 Lisinopril Tablet (PRINIVIL, ZESTRIL)DOSE = 20 mg [...] - available over the counter at any -Qqn-8409 Reviewed and Held RIGHT AFO - Orthotics to fit, - M21.2704-Fnd-4567 Reviewed and Held sennosides-docusate 8.6 mg-50 mg oral tablet 2 tab(s) orally 2 times a day , -Take while using oxycodone for post operative pain to prevent contipation 15-Sep-19 (more content not included)... Normal [facility] Radiologyon 09-15-2021 XR Chest Single view Normal [facility] 6 [facility] Work Phone: TH CHEST 1 VIEWon 09-15-2021 TH CHEST 1 VIEW Patient Name: MORALES LEE STUDY: CHEST 1 VIEW; 09/15/2021 7:21 pm INDICATION: pre-op . COMPARISON: 12/26/2020. ACCESSION NUMBER(S): [id number] ORDERING CLINICIAN: TOSHA BORJA FINDINGS: CARDIOMEDIASTINAL SILHOUETTE: [...] Electronically signed by: Esther PEDERSON MD Normal [facility] Established Visit (Neurosurg ariana)on 09-08-2021 Established Visit [...] Neurosurgery Spine Clinic at the [facility]. She is a very pleasant 46-year-old [...] and T6-L4 Fusion. COMPARISON: None. ACCESSION NUMBER(S): [id number] ORDERING CLINICIAN: LEX FREDERICK FINDINGS: Fused PA [...] Electronically signed by: JOSEPH SALAZAR MD Normal [facility] Tobacco Screening.on Fall risk assessment b) One or more fall s in the last year -Nuha Doyle Work Phone: Tobacco use status CPHS a) Yes -Nuha Doyle Work Phone: Established Visit (Neurosurg ariana)on 05-05-2021 Established Visit (Neurosurgery) History of Present Illness I just had the pleasure of seeing Mrs. Jesus villarreal in the Neurosurgery Spine Clinic at the [facility]. She is a very pleasant 45 -year-old female, who recently underwent a L1 Vertbrectomy and T6-L4 Fusion with me on 12/26/2020 and is status post 4 Months out from her surgery. Today's visit was a virtual visit with the patient at her home and myself at [facility]. She mentions that overall she is doing [...] in Ms. LEE care. Lex Frederick MD, [facility], FAANS Director - Minimally Invasive Spine Surgery [facility] Country Singer of Neurological Surgery [facility] Medicine [place], [place] Some of this note was completed using Realius voice recognition technology and sometimes the software [...] May 05 2021 9:18PM EST (Author) Normal [facility] Established Visit (Neurosurg ariana)on 01-08-2021 Established Visit [...] Neurosurgery Spine Clinic at the [facility]. She is a very pleasant 45 -year-old female, who recently underwent a L1 Vertbrectomy and T6-L4 Fusion with ri on 12/26/2020 and is status post 2 [...] the further treatment plan. Lex Frederick MD, [facility], FAANS Director - Minimally Invasive Spine Surgery [facility] [employer] Marketing Coordinator of Neurological Surgery [facility] [place], [place] Some of this note was completed using Realius voice recognition technology and sometimes the software [...] Unspecified cord compression. COMPARISON: None. ACCESSION NUMBER(S): [id number] ORDERING CLINICIAN: LEX FREDERICK TECHNIQUE: Multiplanar and [...] spine. Electronically signed by: LENNY HAGER MD [facility] NR MRI L-SPINE WOon 12-12-19 21 NR MRI L-SPINE WO Patient Name: MORALES LEE STUDY: MRI L-SPINE WO; ; 12/11/2020 1:38 pm INDICATION: Lumbar Pain Scoliosis, unspecified Low back pain. COMPARISON: CT lumbar spine from 10/07/2020. MRI lumbar spine from 03/11/2016. ACCESSION NUMBER(S): [id number] ORDERING CLINICIAN: LEX FREDERICK TECHNIQUE: MRI of [...] multiple levels. This study was interpreted at [facility]. Electronically signed by: WESLEY CARBAJAL MD [facility] Initial Visit (Neurosurgery) on 10-28-2020 Initial Visit [...] Status:Resulted - Preliminary,Retrospective By Protocol Authorization; Done: [id number] 12:00AM Reason: Unspecified for Xray Spine, entire thoracic/lumbar, include skull, cervical and sacral spine when performed, 2 or 3 view Radiologist to Determine Optimal Study : Y What are the patient's signs and symptoms? : Lumbar Pain SocHx: Current smoker Tobacco Use Screening; Status:Complete; Done: [id number] Patient Discussion/Summary It was a pleasure to see Ms. LEE at the Neurosurgery Spine Clinic at [facility]. Ms. 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 She now has been having severe symptoms [...] evaluated by another spine surgeon at the [facility] who recommended urgent surgery for her [...] even walk (more content not included)... Normal [facility] 07-10-2019 GIAN Telephone (SPNMMN) MORALES LEE ([id number]) 1975 F Date Time Provider Department 07/10/19 [...] Tee MD CC: Dr. Quan, Ms. Alonso Dao RN 07/11/2019 4:42 PM Signed Neuro SPINE [...] Quan's office regarding setting up surgery. Jacquie Dao RN Allergies As of Date: 07/10/2019 Noted [...] Order(s):CONSULT TO ORTHOPAEDIC SURGERY [19991006] Order #: [id number]: 1 Prescriptions as of 07/10/2019 Sig: LISINOPRIL [...] Status:Closed by DIXIE TEE MD on 07/10/19 [facility] [place] 07-09-2019 CNOV Office Visit (SPNSMN ) MORALES LEE ([id number]) 1975 F Date Time Provider Department 07/09/19 9:30 AM STEVENSON QUAN SPNSMN During your visit today, we recorded the following information about you: Pulse Respiration Blood pressure Weight 89/minute 18/minute 124/74 95.8 kg Height 1.499 m Stevenson Quan MD 07/09/2019 2:56 PM Signed SPINE SURGERY OUTPATIENT CONSULT SERVICE DATE: 07/09/2019 PCP: No primary care provider on file. REFERRING PROVIDER: Dixie Tee MD [address] [facility] [address] Consult requested for an opinion regarding the [...] file Gets together: Not on file Attends congregation service: Not on file Active member of [...] with the patient or the patient?s personal dermatology sales representative. 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] Other Visit Diagnosis:Spinal stenosis of thoracic region [M48.04] Order(s):CT THORACIC SPINE WO IVCON [8129737] Order #: [id number] FUTURE Prescriptions as of 07/09/2019 Sig: LISINOPRIL [...] Status:Closed by STEVENSON QUAN MD on 07/09/19 [facility] OBSOLETEon 07-09-2019 OBSOLETE Procedure (EMGMN) MORALES LEE ([id number]) 1975 F Date Time Provider Department 07/09/19 [...] upper limb [G56.21] Order(s):EMG(NEURO/NI) [[id number]] Order #: [id number]: 1 Prescriptions as of 07/09/2019 Sig: LISINOPRIL [...] Status:Closed by JHON EASON MD on 07/09/19 [facility] 07-09-2019 PROGRESS HNO ID: [id number] Author: Stevenson Quan Service: ? Author Type: Physician Type: Progress Notes Filed: 07/09/2019 2:56 PM Note Text: SPINE SURGERY OUTPATIENT CONSULT SERVICE DATE: 07/09/2019 PCP: No primary care provider on file. REFERRING PROVIDER: Dixie Tee MD [address] [facility] [address] Consult requested for an opinion regarding the [...] file Gets together: Not on file Attends congregation service: Not on file Active member of [...] with the patient or the patient?s personal dermatology sales representative. The patient has elected to schedule [...] 09, 2019 TIME: 10:24 AM PAGER: Normal [facility] OT-XR DEXA BONE DENSITY IMPO RTon 07-06-2019 OT-XR DEXA BONE DENSITY IMPORT Images were obtained outside of [facility] [id number] Normal [facility] HNO ID: [id number] Author: Kimberly (Rn) MERA Dunaway Service: ? Author Type: Registered Nurse Type: Care Mgt Initial Assessment Filed: 06/20/2019 12:25 PM Note Text: CARE MANAGEMENT: ASSESSMENT AND DISCHARGE PLAN SERVICE DATE: 06/20/2019 SERVICE TIME: 12:21 PM PRIMARY CARE PHYSICIAN: No primary care provider on file. 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 N/A SOCIAL: Living Arrangement: Home Lives With: Spouse Financial Resources: Disabled Primary Contact: Extended Emergency Contact Information Primary Emergency Contact: Lars Lee Address: [address] [place] [address] [facility] Mobile Relation: Spouse Supportive: Yes Other Important [...] 0 I feel financially burdened by my awz-va-mzdwlp expenses for my prescription medication: Disagree completely [...] with . Does not utilize any DME, shelter or community resources. Has d/c transportation via . Anticipate transitional care plan of home, no skilled needs identified at this time. TCC will remain available to assist as needed with transition planning. SIGNATURE: Kimberly Dunaway RN PATIENT NAME: Morales Lee DATE: June 20, 2019 TIME: 12:21 PM PAGER/CONTACT #: [phone] Normal [facility] CBCon 06-20-2019 Erythrocyte distribution width (RBC) [Ratio] 12.6 % Normal 11.5-15.0 [facility] Comment on above: Performed By: #### C BC #### [place] [id number] [place] [phone] Hematocrit (Bld) [Volume fraction] 48.7 % High 36.0-46.0 [facility] Comment on above: Performed By: #### C BC #### [place] [id number] [place] [phone] Hemoglobin (Bld) [Mass/Vol] 16.8 g/dL High 11.5-15.5 [facility] Comment on above: Performed By: #### C BC #### [place] [phone] [place] [phone] MCH (RBC) [Entitic mass] 31.1 pG Normal 26.0-34.0 [facility] Comment on above: Performed By: #### C BC #### [facility] [address] [place] [phone] MCHC (RBC) [Mass/Vol] 34.5 g/dL Normal 30.5-36.0 [facility] Comment on above: Performed By: #### C BC #### [facility] [place] [phone] MCV (RBC) [Entitic vol] 90.0 fL Normal 80.0-100.0 [facility] Comment on above: Performed By: #### C BC #### [place] [phone] Platelet mean volume (Bld) [Entitic vol] 10.6 fL Normal 9.0-12.7 [facility] Comment on above: Performed By: #### C BC #### [place] [phone] Platelets (Bld) [#/Vol] 334 10*3/uL Normal 150-400 [facility] Comment on above: Performed By: #### C BC #### [facility] [address] [place] [address] RBC (Bld) [#/Vol] 5.41 10*6/uL High 3.90-5.20 [facility] Comment on above: Performed By: #### C BC #### [facility] [address] [place] [address] WBC (Bld) [#/Vol] 10.85 10*3/uL Normal 3.70-11.00 [facility] Comment on above: Performed By: #### C BC #### [facility] [address] [place] [address] CONSULTon 06-20-2019 CONSULT HNO ID: [id number] Author: Evelyn Resendez Service: Pain Management Author [...] controlled substances - including suboxone - from [facility]. Of note, pt has followed once in [...] me to leave. She is now leaving [place]. 3. Will sign off SUBJECTIVE CHIEF COMPLAINT: [...] activity was identified. 06/20/2019 by Evelyn Resendez APRN.FLAT CLOTHIER PAST MEDICAL HISTORY Diagnosis Date - Degenerative [...] file Gets together: Not on file Attends congregation service: Not on file Active member of [...] the Morales Lee's care. SIGNATURE: Evelyn Resendez APRN.FLAT CLOTHIER PATIENT NAME: Morales Lee DATE: June 20, 2019 TIME: 8:24 AM PAGER/CONTACT #: [phone] (M-F 8-5) Normal [facility] CT BRAIN WO IVCONon 10-16-[address] BRAIN WO IVCON * * *Final Report* * * DATE OF EXAM: Jun 20 2019 1:31AM [facility] 0504 - CT BRAIN WO [...] No large cortical infarct or acute hemorrhage. Top Lift Trimmer: [facility] Transcribe Date/Time: Jun 20 2019 1:33A Dictated by : DAVONTE MOY MD This examination was interpreted and the report reviewed and electronically signed by: DAVONET MOY MD on Jun 20 2019 1:35AM EST [id number] Normal [facility] ECG COMPLETEon 06-20-2019 ECG COMPLETE NAME : MORALES LEE PID : [id number] : 1975 Gender : Female Race : ORD : [id number] Procedure Date : Jun 19 2019 23:57:03 Edit Date : Jun 20 2019 07:51:18 Diagnosis:Sinus rhythm Normal ECG no STEMI 1200a Confirmed by MD CORBY, TRACY ([id number]), index editor FOREST WALTON ([id number]) on 06/20/2019 7:51:18 AM Ventricular Rate : 85 BPM Atrial Rate : 85 BPM P-R Interval : 137 ms QRS Duration : 91 ms Q-T Interval : 365 ms QTC Calculation(Bazett) : 434 ms P [place] : 51 degrees R [place] : -13 degrees T [place] : 61 degrees Test Reason : Chest Pain Location : 302 : ED AVED-1 Overread By : MD ARREDONDO LISA Edited By : FOREST WALTON Referred By : , Acquired by : [id number], [facility] ED NOTEon 06-20-2019 ED NOTE HNO ID: [id number] Author: Yuki Mckenzie) MERA Cruz Service: ? Author Type: Registered Nurse Type: ED Notes Filed: 06/20/2019 1:40 AM Note Text: Patient got CT, it is still pending and Jessie BONITA said ok to transfer to [place] with out results pending. Patient agreeing and understanding of transfer. updated on POC and transfer via telephone. DM here to take patient at this time. Pain is not improved at time of transfer. [facility] ED NOTE HNO ID: [id number] Author: Yuki Cruz RN Service: ? Author Type: Registered Nurse Type: ED Notes Filed: 06/20/2019 1:15 AM Note Text: Clean catch urine specimen obtained and sent. [facility] ED NOTE HNO ID: [id number] Author: Yuki Mckenzie) MERA Cruz Service: ? [...] time with getting transferred to another facility. [facility] ED NOTE HNO ID: [id number] Author: Yuki Mckenzie) MERA Cruz Service: ? Author Type: Registered Nurse Type: ED Notes Filed: 06/20/2019 3:28 AM Note Text: Patient stated Valium did not help. She continues to be in pain and upset. She wanted to speak with someone in charge and update on POC. Normal [facility] HISTORY PHYSICALon 9 HISTORY PHYSICAL HNO ID: [id number] Author: Talita Wesley RN Service: General Internal [...] tightness that is constant. Notices a decreased double back operator strength and weakness in left hand. She [...] pressure, palpitations, leg swelling. Denies hx of OR. GI: Denies nausea, vomiting, diarrhea, abdominal pain, [...] rotation 40/80% Decreased left C5-C7 sensation. Left double back operator strength 2/5. Right double back operator strength 5/5. UE DTR intact and equal. [...] tightness into left arm, weak left hand double back operator strength, and worsening severity of numbness/tingling -Afebrile [...] confirmed with patient pharmacy. Patient uses [facility] in [place], [place]. Patient provided #[phone]. Will call in am to confirm dose. Nicotine Abuse Assessment AND Plan: Smokes 1 1/2 PPD for 20 years. Smoking cessation advised. Nicotine patch ordered. Medication and Non-Pharmacologic VTE Prophylaxis/Anticoagulants VTE Prophylaxis: VTE prophylaxis appropriate SIGNATURE: Talita Wesley APRN.CNP PATIENT NAME: Morales Lee DATE: June 20, 2019 TIME: 2:58 AM PAGER/CONTACT #: [facility] # [phone] [facility] NURSING PROGon 06-20-2019 NURSING PROG HNO ID: [id number] Author: Austyn (Rn) MERA Berumen Service: Nursing Author Type: Registered Nurse Type: Nursing Progress Note Filed: 06/20/2019 3:10 PM Note Text: Nursing Progress Note Patient Name: Morales Lee Patient Location: [id number] 2 Daily Note:06/20/2019 -pt is upset regarding [...] note was completed by: AUSTYN BERUMEN RN [facility] NURSING PROG HNO ID: [id number] Author: Austyn WilksRn) MERA Berumen Service: Nursing Author Type: Registered Nurse Type: Nursing Progress Note Filed: 06/20/2019 8:10 AM Note Text: Nursing Progress Note Patient Name: Morales Lee Patient Location: [id number] 2 Daily Note:06/20/2019 -assumed care of patient, pt is requesting her suboxone. We have to call to verify dosage. -MERA Acosta called pharmacy provided by night RUNNER MAN and the pharmacy does not open until 9am. We will call back to verify dose later. -Dr. Kwon called to speak with this RN, he will be in to see the patient later today. This note was completed by: AUSTYN BERUMEN RN [facility] NURSING PROG HNO ID: [id number] Author: Guadalupe WilksRn) MERA Herbert Service: ? Author Type: Registered Nurse Type: Nursing Progress Note Filed: 06/20/2019 4:33 AM Note Text: Nursing Progress Note Patient Name: Morales Lee Patient Location: [id number] 2 Daily Note:DACIAO x 3. C/O left [...] note was completed by: Guadalupe Herbert RN [facility] PROGRESSon 06-20-2019 PROGRESS HNO ID: [id number] Author: Sedrick Martin Service: General Internal Medicine [...] rales. Cor:RSR, no murmurs. 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 DATA: Diagnostic [...] Non-Pharmacologic VTE Prophylaxis/Anticoagulants 06/20/19399 pneumatic compression stockings (nd,id) 06/20/19399 activity - mobilize patient ([place]) VTE Prophylaxis: appropriate SIGNATURE: Sedrick Martin MD PATIENT NAME: Morales Lee DATE: June 20, 2019 TIME: 10:41 AM PAGER: [facility] PROGRESS HNO ID: [id number] Author: Sedrick Martin Service: General Internal Medicine Author Type: Physician Type: Progress Notes Filed: 06/20/2019 8:25 AM Note Text: As per Pain Management Consult still pending, I was notified by Pain Management to resume the pt.' s home Suboxone dosage until pt. Seen later today. Normal [facility] Troponin Ton 06-20-2019 Troponin T.cardiac [Mass/Vol] ug/L Normal 0.000-0.029 [facility] Comment on above: Performed By: #### T NT #### [facility] [address] [place] [phone] Troponin T.cardiac [Mass/Vol] ug/L Normal 0.000-0.029 [facility] Comment on above: Performed By: #### T NT #### [place] [id number] [place] [phone] Basic Metabolic Panlon 06-19 Anion gap [Moles/Vol] 14 mmol/L Normal 9-18 [facility] Calcium [Mass/Vol] 10.3 mg/dL High 8.5-10.2 [facility] Chloride [Moles/Vol] 96 mmol/L Low 97-105 [facility] CO2 [Moles/Vol] 29 mmol/L Normal 22-30 [facility] Creatinine [Mass/Vol] 0.59 mg/dL Normal 0.58-0.96 [facility] eGFR- Amer. >60 Normal [facility] GFR/1.73 sq M predicted among non-blacks MDRD (S/P/Bld) [Vol rate/Area] mL/min/{1.73_m2} Normal [facility] Comment on above: Result Comment: [...] GFR. Glucose [Mass/Vol] 114 mg/dL High 74-99 [facility] Comment on above: Result Comment: The [place] Diabetes Association (ADA) provides guidance for cutoff [...] Standards of Medical Care in Diabetes 2016, [place] [employer]. Diabetes Care. 2016.39(Suppl 1). Potassium [Moles/Vol] 3.7 mmol/L Normal 3.7-5.1 [facility] Sodium [Moles/Vol] 139 mmol/L Normal 136-144 [facility] Urea nitrogen [Mass/Vol] 7 mg/dL Normal 7-21 [facility] CBC and Differentialon 06-19 Abs Baso 0.09 k/uL Normal <0.11 [facility] Abs Luce 0.61 k/uL Normal <0.87 [facility] Abs Neut 7.56 k/uL High 1.45-7.50 [facility] Absolute nRBC <0.01 Normal <0.01 [facility] Basophils/100 WBC (Bld) 0.7 % Normal [facility] DTYPE Auto Diff Normal [facility] Eosinophils (Bld) [#/Vol] 0.25 10*3/uL Normal <0.46 [facility] Eosinophils/100 WBC (Bld) 1.9 % Normal [facility] Erythrocyte distribution width (RBC) [Ratio] 12.0 % Normal 11.5-15.0 [facility] Hematocrit (Bld) [Volume fraction] 52.6 % High 36.0-46.0 [facility] Hemoglobin (Bld) [Mass/Vol] 18.0 g/dL High 11.5-15.5 [facility] Lymphocytes (Bld) [#/Vol] 4.67 10*3/uL High 1.00-4.00 [facility] Lymphocytes/100 WBC (Bld) 35.4 % Normal [facility] MCH (RBC) [Entitic mass] 30.0 pG Normal 26.0-34.0 [facility] MCHC (RBC) [Mass/Vol] 34.2 g/dL Normal 30.5-36.0 [facility] MCV (RBC) [Entitic vol] 87.7 fL Normal 80.0-100.0 [facility] Monocytes/100 WBC (Bld) 4.6 % Normal [facility] Neutrophils/100 WBC (Bld) 57.4 % Normal [facility] NRBCs 0.0 /100 WBC Normal 0 [facility] Platelet mean volume (Bld) [Entitic vol] 10.1 fL Normal 9.0-12.7 [facility] Platelets (Bld) [#/Vol] 370 10*3/uL Normal 150-400 [facility] RBC (Bld) [#/Vol] 6.00 10*6/uL High 3.90-5.20 [facility] WBC (Bld) [#/Vol] 13.18 10*3/uL High 3.70-11.00 [facility] ED NOTEon 06-19-2019 ED NOTE HNO ID: [id number] Author: Yuki Cruz RN Service: ? Author Type: Registered Nurse Type: ED Notes Filed: 06/20/2019 3:27 AM Note Text: Patient has requested valium, she says that she takes it at home. Biago updated. [facility] ED NOTE HNO ID: [id number] Author: Yuki Mckenzie) MERA Cruz Service: ? Author Type: Registered Nurse Type: ED Notes Filed: 06/20/2019 3:27 AM Note Text: Patient is complaining of nausea. She is requesting her saboxon as well and Biago was updated on request. [facility] ED NOTE HNO ID: [id number] Author: Yuki Mckenzie) MERA Cruz Service: ? Author Type: Registered Nurse Type: ED Notes Filed: 06/19/2019 7:54 PM Note Text: Said that after her surgery in 2016 her left pinky and ring finger are numb but she said lately her other fingers on that hand have been getting numb as well. [facility] ED NOTE HNO ID: [id number] Author: Vanessa (Rn) MERA Ruiz Service: ? Author Type: Registered Nurse Type: ED Notes Filed: 06/19/2019 6:48 PM Note Text: Patient has chronic neck pain for three years. Saw spine doctor 06/12/2019 for the same had x rays. Denies any new injury. States pain goes into left arm. Arrived via wheelchair [facility] ED PROV NOTEon 06-19-2019 ED PROV NOTE HNO ID: [id number] Author: Tracy Arredondo Service: Emergency Medicine Author [...] light touch over bilateral lower extremities. 3/5 double back operator, bicep, tricep strength over LUE. Decreased sensation to light touch over left upper extremity in median, radial, and ulnar nerve distribution. 5/5 double back operator, bicep, tricep strength of R UE. Skin: [...] neurosurgical consult as previous notes from her audio specialist recommend obtaining EMG and possible further [...] a neurosurgical consult she warrants transfer to [facility] for further management of her condition. We have low suspicion for stroke at this time as pain appears to be radicular in nature and she has had worsening progression of her symptoms with documented notes from spine (Dr. Álvarez) suggesting this worsening pain and numbness. The FLAT CLOTHIER, Talita, at [facility] recommended we obtain a CT brain and she must rule out any acute intercranial abnormality that may be contributing to the patient's symptoms. Therefore, this study was ordered and will be followed up by the night team especially if there is any acute intracranial abnormality. As long as there is no acute intracranial abnormality she will be transferred to [facility] for further evaluation and management of her condition. Patient voiced understanding was in agreement with the above plan. This patient's case was discussed with Dr. Arredondo who personally evaluated the patient supervised her care. The patient was TRANSFERRED to: [facility] Condition at time of disposition: stable SIGNATURE: NORMA Montgomery (Pa) 06/20/19 0026 Attending Note I have personally performed a face to face assessment of the patient and have reviewed the PA/INFRASTRUCTURE TECH note. My schofield findings include: History is [...] of 5 strength left upper extremities in double back operator strength as well as biceps and triceps [...] worsening neck pain we will place her [place] observation for cardiac rule out as well [...] and requested by the observation provider at [place] as they were concerned about stroke. However I doubt this and did not feel this was necessary however it is currently pending and patient will be transferred to [place] if this is unremarkable. Signature: Tracy Arredondo DO Date: 06/20/2019 Time: 12:26 AM Tracy Arredondo 06/20/19 0033 Normal [facility] Magnesiumon 06-19-2019 Magnesium [Mass/Vol] 2.0 mg/dL Normal 1.7-2.3 [facility] Troponin Ton 06-19-2019 Troponin T.cardiac [Mass/Vol] ug/L Normal 0.000-0.029 [facility] CNOVon 06-12-2019 CNOV Office Visit (SPNMMN ) MORALES LEE ([id number]) 1975 F Date Time Provider Department 06/12/19 [...] file Gets together: Not on file Attends congregation service: Not on file Active member of [...] [Z98.890] Order(s):PATIENT PLACED ON SPINE CARE PATH [9718609] Order #: [id number]: 1 XR SCOLIOSIS PA STAND/LAT 2V [[id number]] Order #: [id number] FUTURE EMG(NEURO/NI) [[id number]] Order #: [id number]: 1 FUTURE CONSULT TO SPINE SURGERY [[id number]] Order #: [id number]: 1 FUTURE Prescriptions as of 06/12/2019 Sig: [...] Talita Raya Ma 06/12/2019 8:07 AM >> VAHIDMICHEL DASILVATALITA Jun 12, 2019 8:07 AM Not taking [...] Status:Closed by DIXIE TEE MD on 06/12/19 [facility] PROGRESSon 06-12-2019 PROGRESS HNO ID: [id number] Author: Zoey Aponte (RtRobert Montiel Service: Radiology Author Type: Ranch Helper Type: Progress Notes Filed: 06/12/2019 10:10 AM [...] RT Daxa June 12, 2019 10:09 AM [facility] PROGRESS HNO ID: [id number] Author: Dixie Tee Service: ? Author Type: [...] file Gets together: Not on file Attends congregation service: Not on file Active member of [...] healed incisions. Chest: symmetric expansion Data Review: [facility] records reviewed Care everywhere Lumbar CT [...] June 12, 2019 TIME: 8:12 AM Normal [facility] XR SCOLIOSIS 2V PA STAND/LAT on [...] changes and multilevel compression deformities as described. Top Lift Trimmer: PSCB Transcribe Date/Time: Jun 12 2019 4:36P Dictated by : CAROLINA MOJICA MD This examination was interpreted and the report reviewed and electronically signed by: CAROLINA MOJICA MD on Jun 12 2019 4:39PM EST [id number] Normal [facility] PROGRESSon 05-14-2019 PROGRESS HNO ID: [id number] Author: Laury Levin Service: ? Author Type: Physician Pointer Helper Type: Progress Notes Filed: 05/14/2019 1:26 PM [...] to rule out cubital tunnel syndrome. Normal [facility] PROGRESSon 05-09-2019 PROGRESS HNO ID: [id number] Author: Kathia Kelly Service: ? Author Type: [...] Dr. Hendricks/ [facility] MRI/CT/myelogram within 12 months: Yes If No , please refer to medical spine or PCP to complete above imaging, triage does not need to be completed Imaging viewable in Epic: No If not, please provide [phone] to fax in imaging reports for review. [...] will fax imaging report and op notes. [phone] Normal [facility] CT-CT C-SPINE WO CON IMPORTo n 02-13-2019 CT-CT C-SPINE WO CON IMPORT Images were obtained outside of [facility] [id number] Normal [facility] CT-CT L-SPINE WO CON IMPORTo n 02-13-2019 CT-CT L-SPINE WO CON IMPORT Images were obtained outside of [facility] [id number] Normal [facility] Vital Signs Date Time Vital Sign Value Performing Clinician Facility 06-07-2022 12:48-0400 Diastolic blood pressure 83 mm[Hg] No Pcp Required [facility] 06-07-2022 12:48-0400 Heart rate 67 /min No Pcp Required [facility] 06-07-2022 12:48-0400 Respiratory rate 16 /min No Pcp Required [facility] 06-07-2022 12:48-0400 SaO2% (BldA) [Mass fraction] 96 % No Pcp Required [facility] 06-07-2022 12:48-0400 Systolic blood pressure 148 mm[Hg] No Pcp Required [facility] 01-06-2022 10:51-0400 Blood Pressure Location NATALIA MANNING [facility] 01-06-2022 10:51-0400 Diastolic blood pressure 86 mm[Hg] NATALIA SCHMIDTRY [facility] 01-06-2022 10:51-0400 Heart rate 86 /min NATALIA MANNING [facility] 01-06-2022 10:51-0400 Respiratory rate 16 /min NATALIA MANNING [facility] 01-06-2022 10:51-0400 Systolic blood pressure 132 mm[Hg] NATALIA MANNING [facility] 09-08-2021 14:15-0500 Body height 149.86 cm No PCP None [facility] Work Phone: 09-08-2021 14:15-0500 Body mass index (BMI) [Ratio] 36.96 kg/m2 No PCP None VY-Vuqbzjdnriho-Nl uja Work Phone: 09-08-2021 14:15-0500 Body surface area Derived from formula 1.78 m2 No PCP None EI-Pnebnrwxstbv-Al [facility] Work Phone: 09-08-2021 14:15-0500 Body weight 83.01 kg No PCP None [facility] Work Phone: 09-08-2021 14:15-0500 Diastolic blood pressure 68 mm[Hg] No PCP None ZE-Dqsbajwdjlrw-Hi uja Work Phone: 09-08-2021 14:15-0500 Heart rate 96 /min No PCP None [facility] Work Phone: 09-08-2021 14:15-0500 Respiratory rate 16 /min No PCP None [facility] Work Phone: 09-08-2021 14:15-0500 Systolic blood pressure 115 mm[Hg] No PCP None TZ-Nsvalppeergb-Mo uja Work Phone: 09-08-2021 14:15-0500 0 1 No PCP None [facility] Work Phone: Comment on above: [facility] 01-01-2021 16:46-0400 Heart rate 111 /min No Pcp Required [facility] 01-01-2021 16:46-0400 SaO2% (BldA) [Mass fraction] 95 % No Pcp Required [facility] 01-01-2021 14:00-0400 Body temperature 96.8 [degF] No Pcp Required [facility] 01-01-2021 14:00-0400 Diastolic blood pressure 77 mm[Hg] No Pcp Required [facility] 01-01-2021 14:00-0400 Respiratory rate 18 /min No Pcp Required [facility] 01-01-2021 14:00-0400 Systolic blood pressure 114 mm[Hg] No Pcp Required [facility] Encounters Encounter Date Encounter Type Care Provider Facility Start: 03-27-2024 End: 03-31-2024 Pre-admission assessment ELX FREDERICK [facility] Start: 03-26-2024 End: 04-07-2024 Pre-admission assessment LEX FREDERICK [facility] Start: 10-10-2023 Orders Only Shaikh Micah HARKINS Work Phone: [facility] Comment on above: Chronic low back hina n, unspecified back pain laterality, unspecified whether sciatica present (Primary Dx); Nausea in adult Start: 06-02-[address] Lex Frederick Facility:[id number] Start: 01-15-2023 End: 01-15-2023 ambulatory LALI BENITEZ Facility:[facility] Start: 01-13-2023 End: 01-13-2023 ambulatory IVON Rojas Facility:[facility] Start: 12-31-2022 ambulatory MENDOSA FAWWAD [facility]: [facility] Start: 12-22-2022 End: 12-22-2022 ambulatory MENDOSA H FAWWAD Facility:[facility] Start: 12-08-2022 AUDIT No PCP None [facility] [address] [place] Work Phone: Start: 12-08-2022 Chart Update No PCP None [facility] [address] [place] Work Phone: Start: 11-26-2022 End: 11-26-2022 Patient encounter procedure Danya Bingham [facility] Start: 11-22-2022 ambulatory SHAIKH Shirley FABillyWAD Facilit y:H1 Start: 11-09-2022 End: 11-09-[address] DEVANTE ELIZONDO . Facility:[facility] Start: 10-15-2022 End: 10-15-2022 ambulatory KYRA SILVA . Facility:[facility] Start: 09-24-2022 End: 09-24-2022 Patient encounter procedure Danya Bingham [facility] Start: 09-01-2022 Encounter for preprocedural laboratory examination DANYA BINGHAM . [facility] Start: 08-25-2022 End: 08-25-2022 ambulatory MENDOSA H FAWWAD Facility:[facility]1 Start: 08-24-2022 End: 08-25-2022 ambulatory MENDOSA H FAWWAD Facility:[facility]1 Start: 08-24-2022 End: 08-25-2022 Encounter for preprocedural laboratory examination MENDOSA H FAWWAD Facility:[facility] Start: 08-21-2022 ambulatory MENDOSA H FAWWAD Facilit y:H1 Start: 07-16-2022 End: 07-16-2022 Patient encounter procedure Danya Bingham [facility] Start: 06-06-2022 End: 06-07-2022 Emergency department patient visit Yony Aguirre [facility] Adult ED [facility] 45 Start: 05-31-2022 End: 05-31-[address] ALEXANDRU SORIA . Facility:[facility]1 Start: 05-19-2022 End: 05-19-2022 Off-Site Danya Bingham [facility] [place] Start: 05-07-2022 End: 05-07-2022 ambulatory SHAIKH Shirley [...] 02-04-2022 Off-Site Danya Bingham [facility] [place] Start: 01-11-2022 Chart Update No PCP None [facility] [place] Work Phone: Start: 01-11-2022 End: 01-11-2022 Patient encounter procedure Danya Bingham [facility] Start: 01-07-2022 AUDIT No PCP None [facility]Neuro[facility] Work Phone: Start: 01-06-2022 End: 01-06-2022 Patient encounter procedure NATALIA MANNING [facility] [place] Start: 10-13-2021 AUDIT No PCP None [facility] Work Phone: Start: 09-29-2021 AUDIT No PCP None MG-Gastroe nterology-[facility] I Work Phone: Start: 09-15-2021 End: 10-02-2021 Evaluation and management of inpatient Dr. LEX FREDERICK Facility:[facility] Start: 09-09-2021 AUDIT No PCP None [facility]Neurosu rgery-[facility] Work Phone: Start: 09-08-2021 Office outpatient vi sit 40 minutes No PCP None GD-Iwjcgowzhkdv-Drtok Work Phone: Start: 05-05-2021 Postop follow up vis it related to original px No PCP None RR-Zawlkbnztzks-[facility] Work Phone: Start: 12-26-2020 End: 01-01-2021 Evaluation and management of inpatient Lex Frederick [facility] [id number] Preoperative state No PCP None [facility]-Neuros urgery-[facility] Work Phone: Procedures Date Procedure Procedure Detail Performing Clinician Start: 09-21-[address] EFRAIN FREDERICK Comment on above: Performed By: #### A FPA3 #### [facility] [address] [place] [address] Start: 09-21-[address] EFRAIN FREDERICK Comment on above: Order Comment: CUADRAJacque ESPINO, 09/21/2021 05:08TEST TYPE + SCREEN WAS CANCELLED, 09/21/2021 05:06 NO PHLEB ID ON TUBE. Result Comment: CALL ED MERA ESPINO, 09/21/2021 05:08 Performed By: #### A FPA3 #### [facility] [address] [place] [address] Start: 09-17-[address] EFRAIN FREDERICK Comment on above: Performed By: #### T +S #### [facility] [address] [place] [address] Start: 12-27-2020 End: 12-28-2020 Release Blood Product-Packed Red Blood Cells Devante Murphyta Start: 12-26-2020 Renal function 2000 panel - Serum or Plasma Nabil Awan Appendectomy NATALIA MANNING Cholecystectomy NATALIA CHAMBERS Hernia NATALIA MANNING Hysterectomy NATALIA MANNING mylogr NATALIA MANNING Plan of Treatment Date Care Activity Detail Author Start: 10-17-2023 End: 10-17-2023 Patient encounter procedure 10/17/2023 6:30 PM EST Office Visit [facility] [address] [place] [address] Shaikh Obrien MD [address] [place] [id number] [facility] Start: 05-06-2023 Influenza vaccination Influenza Vacc ine (#1) [facility] Start: 11-03-2021 POV, Provider: Lex Frederick, Status: Pen, Time: 2:00 PM POV, Provider: Lex Frederick, Status: Pen, Time: 2:00 PM EH-Rvkqwvgepplnkwoz-Vd l[facility] Work Phone: Start: 10-07-2021 [facility]mission to [facility] RNVISIT, Provider: NURSE VISIT ASHLEY BROWN,MGNEUROSURGERY, Status: Pen, Time: 10:15 AM SQ-Ghicgslwsupucuke-Sd l[facility] Work Phone: Start: 09-18-2021 [facility], Provider: Lex Frederick, Status: Pen, Time: 8:00 AM [facility], Provider: eLx Frederick, Status: Pen, Time: 8:00 AM WF-Qwovqcitsewu-Pkivz Work Phone: Start: 01-08-2021 Patient encounter procedure Neurosurgery Miguel Start: 12-31-2020 End: 01-01-2022 [facility] Comment on above: please place at beds geraldine for drain removal Start: 12-26-2020 End: 12-27-2021 Naloxone Injectable 0.4 mg IntraVenous Push Once ; (NARCAN)DOSE = 0.2 mg IntraVenous Push Once, PRN patient is unarousable, and respiratory rate lessClinician Notes: 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 immediately Start: 2013 Screening for malignant neoplasm of breast Mammogram [facility] Start: 2003 Screening for malignant neoplasm of cervix [facility] Start: 1994 Screening for malignant neoplasm of cervix Pap Smear [facility] Start: 1973 Screening for malignant neoplasm of colon [facility] Immunizations Immunization Date Immunization Notes Care Provider Delfino chu 02-22-2020 tetanus toxoid, redu luis diphtheria toxoid, and acellular pertussis vaccine, adsorbed Danya Bingham [facility] 12-05-2018 hepatitis A vaccine, adult dosage Danya Bingham [facility] Payers Date Payer Category Payer Unknown 1975 Unknown [id number] 1975 Unknown [id number] 1975 Unknown [id number] 2.16.84 [id number] 1975 Unknown [id number] 2.16.84 [id number] 1975 Unknown [id number] 2.16.84 0.1.242472.3.579.2.593 1975 Unknown [id number] 2.16.84 0.1.190524.3.579.2.593 1975 Unknown [id number] 2.16.84 0.1.910066.3.579.2.593 1975 Unknown [id number] 2.16.84 0.1.796796.3.579.2.593 1975 Unknown [id number] 2.16.84 0.1.960882.3.579.2.593 1973 Unknown [id number] 2.16.84 0.1.763121.3.579.2.593 1973 Unknown [id number] 2.16.84 0.1.426642.3.579.2.593 1973 Unknown [id number] 2.16.84 0.1.107424.3.579.2.593 1973 Unknown [id number] 2.16.84 0.1.895381.3.579.2.593 1973 Unknown [id number] 2.16.84 0.1.057567.3.579.2.593 1973 Unknown [id number] 2.16.84 0.1.828199.3.579.2.593 1973 Unknown [id number] 2.16.84 0.1.941341.3.579.2.593 1973 Unknown [id number] 2.16.84 0.1.376171.3.579.2.593 1973 Unknown [id number] 2.16.84 0.1.126100.3.579.2.593 1973 Unknown [id number] 2.16.84 0.1.086736.3.579.2.593 1973 Unknown [id number] 2.16.8 40.1.573863.3.579.2.1046 1973 Unknown [id number] 2.16.8 40.1.740644.3.579.2.727 1961 Unknown [id number] Social History Date Type Detail Facility [facility] Tobacco smoking consumption unknown [facility] Start: 08-01-2023 End: 08-08-2023 History of drug use History of drug use [facility]KY[facility] C Work Phone: Start: 01-05-2016 End: 08-01-2023 Tobacco smoking status Smokes tobacco daily (finding) [facility] Comment on above: 1ppd 1ppd Start: 08-08-2023 Sex Assigned At Female [facility] History of tobacco use Cigarette Smoker [facility] Start: 08-08-2023 Alcohol intake Lifetime non-d prasanna (finding) [facility] Start: 1975 Sex Assigned At Not [...] Facility 11-26-2022 Functional Status N/A [facility] 07-16-2022 Functional Status N/A [facility] Functional observable [facility] Mental Status Date Assessment Result Facility 12-29-2020 Cognitive functi ons [id number] [facility] Clinical Notes 12-26-2020 to 11-26-2022 Note [...] Document Reviewed: 10/01/2017 Elsevier Patient Education 2019 [employer]. Follow Up Care 10/14/2022 11:11:52 With:Zachery HARKINS, CAROLEE Anderson, URO Address: When: Unknown [facility] 09-23-2022 Hospital Discharg e instructions Patient Education [...] including vitamins, herbs, eye drops, creams, and srnv-gop-wvkojth medicines. Any problems you or family members [...] provider tells you to take them. Taking yufw-ysg-prduzdy medicines, vitamins, herbs, and supplements. General instructions [...] Document Reviewed: 10/08/2019 Elsevier Patient Education 2019 [employer]. Follow Up Care 08/31/2022 10:49:10 With:Zachery HARKINS, CAROLEE Anderson, URO Address: When: Unknown [facility] 07-16-2022 Hospital Discharg e instructions Patient [...] nerve stimulation). For women, using a medical policy specialist to prevent urine leaks. This is a [...] right after experiencing incontinence. General instructions Take fsqv-gxa-wdfrogg and prescription medicines only as told by [...] 09/29/2005 Document Revised: 09/01/2018 Document Reviewed: 12/01/2017 Instacart Patient Education 2020 [employer]. Follow Up Care 06/15/2022 11:30:52 With:Zachery HARKINS, CAROLEE Anderson, URO Address: When: Unknown [facility] 02-04-2022 Hospital Discharg e instructions Patient Education [...] nerve stimulation). For women, using a medical policy specialist to prevent urine leaks. This is a [...] right after experiencing incontinence. General instructions Take bmfy-qnt-qxafhmg and prescription medicines only as told by [...] 09/29/2005 Document Revised: 09/01/2018 Document Reviewed: 12/01/2017 [employer] Patient Education 2020 [employer]. 02/04/2022 16:23:10 Calorie Counting for Weight Loss [...] 08/22/2006 Document Revised: 05/11/2019 Document Reviewed: 07/22/2017 [employer] Patient Education 2020 [employer]. Follow Up Care 02/04/2022 13:28:46 With:Danya Bingham MD, URL, URO Address: When: Unknown [facility] 01-11-2022 Evaluation + Plan note Extrac [...] and Plan Diagnosis Bowel and bladder incontinence (RUR78-GZ R32, Billing Diagnosis, Medical). Incontinence without sensory awareness (QQJ04-YT N39.42, Working, Medical). Diagnosis Bowel and bladder incontinence (GPG33-JI R32, Billing Diagnosis, Medical). Incontinence without sensory awareness (FKX18-PQ N39.42, Working, Medical). Addendum by Danya Bingham MD on January 11, 2022 10:23 EDT Post procedure diagnosis: Intrinsic sphincter deficiency, acontractile detrusor [facility]05-09-2022 Hospital Discharge instructions Patient Education 01/11/2022 [...] 01/06/2022 11:41:34 With:Danya Bingham Address: [address] [phone]- [phone] Business (1) When: Unknown Comments:Call for followup appointment in 2-3 weeks With:Danya Lue Address:Unknown When: Unknown [facility]05-04-2022 Hospital Discharge instructions Patient Education 01/06/2022 [...] clinics. Check with your local health department. [facility], where you would pay only what you can afford. To find one near you, check this website: [email or web address]/ [facility]. These are part of [...] information Learn more about cervical cancer from: [employer]: www.acog.org/Patients/FAQs/Cervical-Cancer [employer]: www.cancer.org/cancer/cervicalcancer/ U.S. Centers for Disease [...] 09/05/2016 Document Revised: 09/23/2018 Document Reviewed: 04/19/2017 [employer]ac[employer] Patient Education 2020 [employer]. Follow Up Care 11/20/2021 10:16:51 With:NIGEL GREEN, NATALIA Santillan, URL Address: [address] [place] [address]. 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 PT/OT evaluated. Patient was discharged to home [...] or twist. Instead, bend at knees to sisal picker objects (more content not included)...[facility]01-26-2022 NoteThis report has been cancelled.[facility]01-17-2022 NotePROCEDURE DETAILS Postoperative Diagnosis: lumbar stenosis Surgeon: Dr. Lex Frederick Resident/Fellow/Other Pointer Helper: Chery Awan Procedure: posterior L4-L5 decompression posterior [...] Attestation: Note Completion: I am a:Resident/Fellow Attending AttdeanaationI was present for the entire procedure Electronic Signatures: Lex Frederick) (Signed 22-Sep-2021 10:54) Authored: Post-Operative Note, Chart Review, Note Completion Co-Signer: Post-Operative Note, Chart Review, Note Completion Nabil Awan (Resident)) (Signed 21-Sep-2021 15:38) Authored: Post-Operative Note, Chart Review, Note Completion Last Updated: 22-Sep-2021 10:54 by Lex Frederick)[facility]01-17-2022 NoteHistory & Physical Reviewed: /Lactating: Are [...] the note. I personally evaluated the patient [id number] Electronic Signatures: Lex Frederick) (Signed 21-Sep-2021 11:50) Authored: Note Completion Co-Signer: History & Physical Reviewed, ERAS, Consent, Note Completion Jaya Mosquera (Resident)) (Signed 21-Sep-2021 02:51) Authored: History & Physical Reviewed, ERAS, Consent, Note Completion Last Updated: 21-Sep-2021 11:50 by Lex Frederick) References: 1. Data Referenced From MRI Safety Screen v2 19-Sep-2021 19:00[facility]01-15-2022 NoteRehab: Info: Mode of Treatmentoccupational therapy; attempted; OT evaluation initiated with home set-up obtained (1st floor set up/ 0 step entry, lives with , tub shower with chair); Pt with low BP upon arrival 79/54. Second BP reading taken at 71/51. RN notified, further evaluation deferred at this time. OT to reattempt when pt medically appropriate. 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 Exploration of spinal [...] performed and the images transferred to the [employer] system for use in intraoperative image-guided computer-assisted [...] using the torque dri (more content not included)...[facility]01-14-2022 NoteThis report has been cancelled.[facility]01-14-2022 NoteHistory & Physical Reviewed: /Lactating: Are [...] the note. I personally evaluated the patient [id number] Electronic Signatures: Fidel Maciel (Resident)) (Signed 17-Sep-2021 22:49) Authored: History & Physical Reviewed, ERAS, Consent, Note Completion Lex Frederick) (Signed 19-Sep-2021 10:17) Authored: Note Completion Co-Signer: History & Physical Reviewed, ERAS, Consent, Note Completion Last Updated: 19-Sep-2021 10:17 by Lex Frederick) References: 1. Data Referenced From MRI Safety Screen v2 17-Sep-2021 11:28[facility]01-11-2022 NoteReferral Information: Consult requested by (Attending [...] be able to m (more content not included)...[facility]01-11-2022 NoteHistory of Present Illness: /Lactating: Are [...] the note. I personally evaluated the patient [id number] Electronic Signatures: Fidel Maciel (Resident)) (Signed 15-Sep-2021 [...] Plan Last Updated: 16-Sep-2021 10:20 by Lex Frederick)[facility]04-23-2021 History of Present illness Narrative* I just had the pleasure of seeing Mrs. Jesus villarreal in the Neurosurgery Spine Clinic at the [facility]. She is a very pleasant 46-year-old [...] Ms. LEE care. * Lex Frederick MD, [facility], [facility] * Director - Minimally Invasive Spine Surgery * [facility] * [employer] Neurological [employer] * [facility] [facility] [employer] * [place], [place] * Some of this note was completed using [employer] voice recognition technology and sometimes the software misinterprets words. This may include unintended errors with respect to translation of words, typographical errors or grammar errors which may not have been identified prior to finalization of the chart note. Please take this into account when reading this note. AY-Osyduplcdttn-Fuvqp Work Phone: 1(547) 583-585304-23-2021 Reason for referral (narrative)* Reason for Referral: Patient s/p posterior bilateral L1 transpedicular decompression, posterior T7-T8, T8-T9, T9-T10, T0-T11, T11-T12, T12-L1 hutton hernandez osteotomies, Posterior T5-L4 instrumentation and fusion on 12/26 [facility] Future Appointments Appointment Date:01/07/2022 11:00:00 AM Scheduled Provider: [facility] Appointment Type:Urology CALL PAT FT Appointment Date:01/11/2022 08:00:00 AM Scheduled Provider: Location:[facility] Appointment Type:Urology FT Appointment Date:01/11/2022 09:00:00 AM Scheduled Provider: Location:[facility] Appointment Type:Urology FT [facility] + [facility] + Plan note Future Appointments Appointment Date:04/06/2024 12:00:00 PM Scheduled Provider: Location:.MRI Appointment Type:MRI Spine (FT) Appointment Date:04/06/2024 12:00:00 PM Scheduled Provider: Location:[facility] Appointment Type:Surgery FT Future Scheduled Tests Radiology* MRI Spine Cervical w/o Contrast 04/06/24 * MRI Spine Lumbar w/o Contrast 04/06/24 * MRI Spine Thoracic w/o Contrast 04/06/24 [facility] Evaluation note* Neurological: japnoka1lry 5/5 except hg/io4+ble 5/5incision cdiHead/Neck: Ox3, awake, alertBUE 5 prox, HG/IO4+BLE HF/KE/DF/PF/EHL 5 [facility]* Constitutional: in no acute distressSkin: Well perfusedEyes: OU 3RHead/Neck: atraumatic, normocephal icRespiratory/Thorax: airway intact, good chest expansionCardiovascular: normal rate, regular rhythmGastrointestinal: non-tenderNeurological: NAD, A&Db1Dcahppm Nerves II-XII: PERRL, EOMI, Face symmetric, Facial SILT, Palate/Tongue midline and symmetric, shoulder shrugs symmetric, hearing intact to finger rubs bilaterallyMotor: RUE D5, B5, T5, HG5, IO5LUE D5, B5, T5, HG5, IO5RLE HF 4+, KE4+, PF4-, DF3LLE HF 4+, KE4+, PF3, DF4-Sensation: SILT throughout all extremitiesPsychological: mood appropriate [facility]* Diagnosis Chronic low back pain, unspecified back pain laterality, unspecified whether sciatica present- Primary Nausea in adult [facility] N[facility] No data available for this section [facility] Discharge instructions* Activity:activity as tolerated. [...] Certification:Home Care Services Needed: yesSkilled Disciplines Ordered: RN/PRE BILLING SPECIALIST, PT, OTFace to Face Encounter Completed: yesDate of Encounter: [id number] Necessity for Homecare (based on clinical findings): [...] washing dishes, & loading the dryer or production lead until cleared by MD. * Wound Care:Inspect [...] and/or calves. * Follow-Up - Neurosurgeon:Physician/Dept/Service: [facility]geonDr [facility] Date/Time: 08-Jan-2021 10:40Location: [facility], [facility] [address] [place], [place] Number: [phone]: 2 week postop/wound check visit; Bring Insurance Card and Photo ID [facility] No data available for this section [facility] progress note No data available for this section [facility] reason for referral (narrative) , urinary incontinence, neurogenic bladder, open bladder neck, possible SP tube placement Referred by: Zachery HARKINS, Danya Rhodes [facility] Summary Purpose Family History Unknown Family Member [...] section and content) DATE CREATED AUTHOR 06/20/2019 [facility] DATE CREATED AUTHOR AUTHOR'S ORGANIZ ATION 06/20/2019 [facility] DATE CREATED AUTHOR AUTHOR'S ORGANIZ ATION 07/26/2019 [facility] DATE CREATED AUTHOR AUTHOR'S ORGANIZ ATION 12/29/2020 [facility] DATE CREATED AUTHOR AUTHOR'S ORGANIZ ATION 09/16/2021 [facility] DATE CREATED AUTHOR AUTHOR'S ORGANIZ ATION 11/25/2021 [facility] DATE CREATED AUTHOR AUTHOR'S ORGANIZ ATION 12/10/2021 [facility] DATE CREATED AUTHOR AUTHOR'S ORGANIZ ATION 08/06/2022 [facility] DATE CREATED AUTHOR AUTHOR'S ORGANIZ ATION 01/17/2023 [facility] DATE CREATED AUTHOR AUTHOR'S ORGANIZ ATION 06/09/2023 [facility] DATE CREATED AUTHOR AUTHOR'S ORGANIZ ATION 12/29/2023 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 [employer] provides no warranty or guarantee of the accuracy or completeness of information in this document.
--- NOTE | 2024-05-06 20:46 | ECG_ITS ---
[facility] Test Date: 2024-05-06 Pat Name: MORALES LEE Department: Room: - Gender: Female [employer]: : 1975 Requested By: SHAIKH BIN Order Number: [id number] Reading MD: SULMA TOMAS Measurements Intervals [place] Rate: 76 P: 61 UT: 176 QRS: 23 QRSD: 88 T: 52 QT: 388 QTc: 418 Interpretive Statements 1100 Sinus rhythm 9110 normal ECG Compared to ECG 08/24/2022 13:49:07 No significant changes Electronically Signed On 05-07-2024 12:35:31 EDT by SULMA TOMAS
--- NOTE | 2024-05-06 20:46 | XR_ITS ---
The [address] [address] Patient Name: MORALES LEE MRN: [id number] date: 1975 Sex: F Assigned Patient Location: ER Current Patient Location: ED.MAIN Accession/Order Number: [id number] Exam Date: 05/06/2024 21:22 Report Date: 05/06/2024 22:58 At the request of: ROSANA COLUNGA Procedure: XR abdomen 1V EXAM: XR abdomen 1V HISTORY: vomiting COMPARISON: None. TECHNIQUE: Single supine view of the abdomen FINDINGS: Air density is seen in the left upper abdomen, which may represent a mildly gaseous distended gastric body. Nonspecific bowel gas pattern is seen. No air-filled distended loops of bowel is seen to suggest bowel obstruction. Large volume of stool is seen throughout the colon. No definite pathologic calcification is seen. Surgical clips are seen projecting over the right upper abdomen, which may be related to prior cholecystectomy. Extensive fusion device is seen projecting over the visualized thoracolumbar spine. XR/XR abdomen 1V IMPRESSION: Air density is seen in the left upper abdomen, which may represent a mildly gaseous distended gastric body. Large volume of stool seen throughout the colon. Electronically authenticated by: JOEL FORD Date: 05/06/2024 22:58
[2024-05-06] MEDS: 0.9 % SODIUM CHLORIDE 1,000 ML 999 ML IV (22:07)
[2024-05-06 22:11] LABS: Basophils Percent Auto 0.2 % (0.2-2.0); Hematocrit 42.7 % (36.0-48.0); Hemoglobin 14.1 g/dL (12.0-16.0); Immature Granulocytes Abs Auto 0.04 10^3/uL (0.00-0.03); Immature Granulocytes Pct Auto 0.3 % (0.0-0.5); Lymphocytes Absolute Auto 1.6 10^3/uL (1.2-3.8); Lymphocytes Percent Auto 13.8 % (20.5-60.0); Mean Corpuscular Hemoglobin 28.5 pg (26.7-34.0); Mean Corpuscular Volume 86.4 fL (81.0-99.0); Mean Platelet Volume 9.2 fL (9.5-13.5); Monocytes Absolute Auto 0.1 10^3/uL (0.3-0.8); Monocytes Percent Auto 0.9 % (1.7-12.0); Neutrophils Absolute Auto 9.9 10^3/uL (1.4-6.5); Neutrophils Percent Auto 84.8 % (43.0-75.0); Platelet Count 344 10^3/uL (150-450); Red Blood Count 4.94 10^6/uL (4.20-5.40); Red Cell Distribution Width 12.6 % (11.0-15.0); White Blood Count 11.7 10^3/uL (4.0-11.0)
[2024-05-06 22:24] LABS: Alanine Aminotransferase 16 U/L (14-59); Albumin Globulin Ratio 0.6; Albumin Level 3.1 g/dL (3.4-5.0); Alkaline Phosphatase 166 U/L (46-116); Aspartate Amino Transferase 13 U/L (15-37); BUN Creatinine Ratio 9.9; Bilirubin Total 0.4 mg/dL (0.2-1.0); Calcium 9.2 mg/dL (8.5-10.1); Carbon Dioxide 29.3 mmol/L (21.0-32.0); Chloride 99 mmol/L (98-107); Estimated GFR (African America >60 (>=60); Estimated GFR (Non-African Ame >60 (>=60); Globulin 5.3 g/dL; Glucose 131 mg/dL (74-106); Potassium 4.3 mmol/L (3.5-5.1); Sodium 138 mmol/L (136-145); Total Protein 8.4 g/dL (6.4-8.2)
[2024-05-06] MEDS: KETOROLAC TROMETHAMINE 30 MG/ML VIAL 15 MG IVP (22:31)
[2024-05-06] MEDS: ONDANSETRON PF 4 MG/2 ML VIAL IV (22:31)
[2024-05-06] MEDS: FAMOTIDINE/PF 20 MG/2 ML VIAL IV (22:33)
[2024-05-06] MEDS: PANTOPRAZOLE SODIUM 40 MG VIAL IV (22:36)
[2024-05-06] MEDS: lidocaine HCL 15 ML, MAG HYDROX/ALUMINUM HYD/SIMETH 30 ML, HYOSCYAMINE SULFATE 0.25 MG PO (23:11)
[2024-05-06] MEDS: PROMETHAZINE HCL 25 MG in 0.9 % SODIUM CHLORIDE 50 ML 204 MG IV (23:45)
[2024-05-07] MEDS: lidocaine HCL 15 ML, MAG HYDROX/ALUMINUM HYD/SIMETH 30 ML, HYOSCYAMINE SULFATE 0.25 MG PO (00:51)
[2024-05-07 01:13] VITALS: BP 144/80; PULSE 88; O2SAT 96
--- NOTE | 2024-05-07 01:31 | ED.GENADUL1 ---
HPI HPI - General Adult General Chief complaint: Abdominal Pain Time Seen by Provider: 05/06/24 22:03 Source: patient Mode of arrival: ambulance Limitations: no limitations History of Present Illness HPI narrative: 48-year-old female to the emergency department with chief complaint of nausea, vomiting. Patient reports that symptoms are typical of her flare of chronic gastritis. She denies any fever, sweats, chills. No diarrhea. No abdominal pain. She attempted some Phenergan and Zofran at home with only minimal relief of symptoms. Related Data Home Medications ?Medication ?Instructions ?Recorded ?Confirmed buprenorphine 8 mg-naloxone 2 mg 2.5 film sublingual Q24H 03/01/23 05/06/24 sublingual film cyclobenzaprine 10 mg tablet 10 mg PO Q8H 03/01/23 05/06/24 diazepam 5 mg tablet 5 mg PO Q8H PRN anxiety 03/30/23 05/06/24 furosemide 40 mg tablet 40 mg PO DAILY 03/30/23 05/06/24 gabapentin 800 mg tablet 800 mg PO TID 03/30/23 05/06/24 oxybutynin chloride 15 mg 15 mg PO DAILY 03/30/23 05/06/24 tablet,extended release 24 hr potassium bicarbonate-citric acid 20 meq PO BID 03/30/23 05/06/24 20 mEq effervescent tablet (Effer-K) tizanidine 4 mg tablet 4 mg PO Q8H PRN muscle spasticity 03/30/23 05/06/24 zolpidem 12.5 mg tablet,extended 12.5 mg PO DAILY 03/30/23 05/06/24 release,multiphase fluoxetine 10 mg capsule 10 mg PO DAILY 05/06/24 05/06/24 Previous Rx's ?Medication ?Instructions ?Recorded ondansetron 4 mg disintegrating 4 mg PO Q8H PRN nausea and 05/07/24 tablet vomiting 0 days #30 tabs Allergies Allergy/AdvReac Type Severity Reaction Status Date / Time codeine Allergy Severe rash Verified 05/06/24 20:33 Penicillins Allergy Severe Anaphylaxis Verified 05/06/24 20:33 quetiapine [From Seroquel] Allergy Severe Seizure Verified 05/06/24 20:33 Opioid HPI Opioid Management Most Recent Opioid Data: Last Pain Scale 8 11/21/23 09:41 Review of Systems ROS Status of ROS 10 or more systems reviewed and unremarkable except as noted in history and below [facility] Social History Smoking status: Current every day smoker Exam Narrative Exam Narrative: VITALS: I have reviewed the triage vital signs. GENERAL: Well developed, well appearing adult in no acute distress. NEURO: Alert and oriented. Moves all extremities. Face is symmetric and expressive. EYES: PERRL. No scleral icterus or conjunctival injection. No discharge. HENT: Normocephalic, atraumatic. Hearing is grossly intact. Nares grossly patent and without discharge. Mucous membranes moist. NECK: No JVD. Patient moves neck without restriction. CARDIO: Rhythm regular. Normal rate. No murmur, rub, or gallop. Pulses equal bilaterally in the upper and lower extremity. No lower extremity edema. PULM: Lungs clear to auscultation in all ma. No wheezes, rales, or rhonchi. No conversational dyspnea. No splinting, stridor, or accessory muscle use. GI/: Abdomen is soft and non-tender. Normoactive bowel sounds. EXTREMITIES: Symmetric muscle bulk. No joint swelling. No clubbing, cyanosis, or deformity. SKIN: Warm and dry. Normal turgor. No rash or lesions appreciated. PSYCH: Mood, affect, and interaction is appropriate to the setting. Constitutional Vital Signs, click to edit/add: Last Vital Signs Temp 98.1 F 05/06/24 20:34 Pulse 88 05/07/24 01:13 Resp 18 05/07/24 01:13 BP 144/80 H 05/07/24 01:13 Pulse Ox 96 05/07/24 01:13 O2 Del Method Room Air 05/07/24 01:13 Course Vital Signs Vital signs: Vital Signs Temperature 98.1 F 05/06/24 20:34 Pulse Rate 82 05/06/24 20:34 Respiratory Rate 18 05/06/24 20:34 Blood Pressure 144/88 H 05/06/24 20:34 Pulse Oximetry 93 L 05/06/24 20:34 Oxygen Delivery Method Room Air 05/06/24 20:34 Temperature 98.1 F 05/06/24 20:34 Pulse Rate 88 05/07/24 01:13 Respiratory Rate 18 05/07/24 01:13 Blood Pressure 144/80 H 05/07/24 01:13 Pulse Oximetry 96 05/07/24 01:13 Oxygen Delivery Method Room Air 05/07/24 01:13 Medical Decision Making MDM Narrative Medical decision making narrative: 48-year-old female to the emergency department nausea and vomiting. Symptoms are consistent with her previous chronic gastritis per her report. Vital stable, the patient is afebrile. Abdominal examination is benign. Basic labs ordered. X-ray to rule out obstruction or perforation. Symptomatic medications. Lab work reviewed and noted. No major abnormalities. X-ray without evidence of obstruction or perforation. Patient felt improved. She tried a GI cocktail but threw it up. Phenergan was ordered. Additional GI cocktail was given she is able to keep it down. She is now able to tolerate oral intake. Offered the patient admission versus discharge home. She does not want to be admitted. She would like a prescription for Zofran. She will follow-up with her doctor. GI referral was given. Return precautions were discussed. All questions were answered. The patient was discharged home. Medical Records Medical records reviewed: Yes I reviewed the patient's medical records Lab Data Lab results reviewed: Yes I reviewed the patient's lab results Labs: Lab Results 05/06/24 Range/Units 21:59 WBC 11.7 H (4.0-11.0) 10^3/uL RBC 4.94 (4.20-5.40) 10^6/uL Hgb 14.1 (12.0-16.0) g/dL Hct 42.7 (36.0-48.0) % MCV 86.4 (81.0-99.0) fL MCH 28.5 (26.7-34.0) pg MCHC 33.0 (29.9-35.2) g/dL RDW 12.6 (11.0-15.0) % Plt Count 344 (150-450) 10^3/uL MPV 9.2 L (9.5-13.5) fL Neut % (Auto) 84.8 H (43.0-75.0) % Lymph % (Auto) 13.8 L (20.5-60.0) % [place] % (Auto) 0.9 L (1.7-12.0) % Eos % (Auto) 0.0 L (0.9-7.0) % Baso % (Auto) 0.2 (0.2-2.0) % Neut # (Auto) 9.9 H (1.4-6.5) 10^3/uL Lymph # (Auto) 1.6 (1.2-3.8) 10^3/uL [place] # (Auto) 0.1 L (0.3-0.8) 10^3/uL Eos # (Auto) 0.0 (0.0-0.7) 10^3/uL Baso # (Auto) 0.0 (0.0-0.1) 10^3/uL Abs Immat Gran (auto) 0.04 H (0.00-0.03) 10^3/uL Imm/Tot Granulo (auto) 0.3 (0.0-0.5) % Sodium 138 (136-145) mmol/L Potassium 4.3 (3.5-5.1) mmol/L Chloride 99 (98-107) mmol/L Carbon Dioxide 29.3 (21.0-32.0) mmol/L Anion Gap 14.0 BUN 7.0 (7.0-18.0) mg/dL Creatinine 0.71 (0.55-1.02) mg/dL Est GFR ( Amer) >60 (>=60) Est GFR (Non-Af Amer) >60 (>=60) BUN/Creatinine Ratio 9.9 Glucose 131 H (74-106) mg/dL Calcium 9.2 (8.5-10.1) mg/dL Total Bilirubin 0.4 (0.2-1.0) mg/dL AST 13 L (15-37) U/L ALT 16 (14-59) U/L Alkaline Phosphatase 166 H (46-116) U/L Total Protein 8.4 H (6.4-8.2) g/dL Albumin 3.1 L (3.4-5.0) g/dL Globulin 5.3 g/dL Albumin/Globulin Ratio 0.6 Lipase 13.0 L (16.0-77.0) U/L Imaging Data Abdominal x-ray: Radiologist's impression: ITS Impressions Abdomen X-Ray 05/06/24 20:46 IMPRESSION: Air density is seen in the left upper abdomen, which may represent a mildly gaseous distended gastric body. Large volume of stool seen throughout the colon. Electronically authenticated by: JOEL FORD Date: 05/06/2024 22:58 ECG Data Attestation: I personally reviewed and interpreted this ECG as follows: (Sinus rhythm. No STEMI. Normal QTc.) Discharge Plan Discharge Stand Alone Forms: Portal Instructions Chief Complaint: Abdominal Pain Clinical Impression: Gastritis Patient Disposition: Home, Self-Care Time of Disposition Decision: 01:28 Condition: Good Mode of Transportation: Private Vehicle Prescriptions / Home Meds: New ondansetron 4 mg tablet,disintegrating 4 mg PO Q8H PRN (Reason: nausea and vomiting) Qty: 30 0RF No Action diazepam 5 mg tablet 5 mg PO Q8H PRN (Reason: anxiety) furosemide 40 mg tablet 40 mg PO DAILY gabapentin 800 mg tablet 800 mg PO TID oxybutynin chloride 15 mg tablet extended release 24hr 15 mg PO DAILY Effer-K 20 mEq tablet, effervescent 20 meq PO BID tizanidine 4 mg tablet 4 mg PO Q8H PRN (Reason: muscle spasticity) zolpidem 12.5 mg tablet,ext release multiphase 12.5 mg PO DAILY Rx Instructions: HS fluoxetine 10 mg capsule 10 mg PO DAILY buprenorphine-naloxone 8-2 mg film 2.5 film sublingual Q24H cyclobenzaprine 10 mg tablet 10 mg PO Q8H Print Language: [place]ican Instructions: Gastritis (ED) Additional Instructions: Call the office of your primary care doctor to arrange for follow-up within the above-stated timeframe. Your ED visit was focused on your acute issue and does not replace primary care. You should review your labs, imaging, and diagnoses from this ED visit with your primary care physician. There may be non-emergent/ incidental findings that need further evaluation. You should review your vital signs including blood pressure with your PCP. If you were prescribed medications you should discuss possible side-effects and drug interactions with your pharmacist. Call 911 or go to the nearest Emergency Department if you develop any new or worsening symptoms. Seek immediate medical attention if you develop: worsening abdominal pain, new or worsening nausea, new or worsening vomiting, new or worsening diarrhea, chest pain, shortness of breath, pain with urination, problems urinating, fever, chills, weakness, or any new or worsening symptoms. Referrals: Shaikh Obrien MD [Primary Care Provider] - 1 week
[2024-05-07 02:04] VITALS: BP 134/79; PULSE 83; O2SAT 96
== END 2024-05-07 02:12 | disposition home or self-care (01) ==
PROVIDERS: Emergency Provider Student in an Organized Health Care Education/Training Program; PCP Internal Medicine
DX: K29.70 Gastritis, unspecified, without bleeding (principal); F17.200 Nicotine dependence, unspecified, uncomplicated
CPT/HCPCS: 36415; 74018; 80053; 83690; 85025; 93005; 96361; 96365; 96375; 99285; J1885; J2250; J2405

== ENCOUNTER 2024-05-14 22:10 | Outpatient (REF) | payer BC, SELFPAY ==
--- OUTSIDE RECORDS SUMMARY | 2024-05-14 22:15 | XMS_ITS | CCD ---
Author Organization [facility] Care Team Providers Care Transportation Mechanic Name Role Phone Required, No Pcp Unavailable Unavailable Lex Frederick Unavailable None, No PCP Unavailable Unavailable Unavailable Unavailable SHAIKH OBRIEN Primary Care Physician [phone] Yony Aguirre Unavailable Unavailable Neurosurgery Unavailable Unavailable [...] FAWWAD, MENDOSA H Primary Care Unavailable EMMANUEL, LAIL Attending Unavailable FAWWAD, MENDOSA H Primary Care [...] Admitting Unavailable VETO ., IVON Attending Unavailable [facility] Primary Care Unavailable PATRICKDEBORAH SHARIF Consulting Unavailable [facility] Primary Care Unavailable REINECK, DR ABHINAV Living[place] Admitting Unavailabl e REINECK, DR ABHINAV [place] Consulting Unavailabl e REINECK, DR ABHINAV [place] Attending Unavailabl e HAY ., DR LOW Admitting Unavailable [facility] Primary Care Unavailable HAY ., DR LOW Attending Unavailable ZIEBER, DR ENRIQUE Santana Consulting Unavailable HAY ., DR LOW Consulting Unavailable LUE ., DANYA Aponte Admitting Unavailable LUE ., DANYA Aponte Attending Unavailable PAVMANE, DENTON Primary Care Unavailable [facility] Primary Care Unavailable LUE ., DANYA M Admitting Unavailable LUE ., DANYA M Consulting Unavailable LUE ., DANYA Aponte Attending Unavailable CANDICE MATTA Consulting Unava RACHEL Oconnor Consulting Unavailable DIAB ., KYRA Admitting Unavailable [facility] Primary Care Unavailable DIAB ., KYRA Attending Unavailable GRECHNY ., BONITA HULL Consulting Unavailabl e [facility] Primary Care Unavailable LUE ., DANYA M Admitting Unavailable LUE ., DANYA M Consulting Unavailable LUE ., DANYA Aponte Attending Unavailable PAY ., DR RODRIGUEZ Admitting Unavailable PAY ., DR RODRIGUEZ Consulting Unavailable [facility] Primary Care Unavailable PAY ., DR RODRIGUEZ Attending Unavailable [facility] Primary Care Unavailable REINECK, DR ABHINAV [place] Admitting Unavailabl e REINECK, DR ABHINAV [place] Consulting Unavailabl e REINECK, DR ABHINAV [place] Attending Unavailabl KORIN Mccarthy Consulting Unavailable Dr. Lex Frederick Attending Kiana Obrien MD [facility] Unavailable SisieDanya. Attending Unavailable Allergies Allergy Classification Reported Allergen(s) Allergy Type Date of Onset Reaction(s) Facility Opioid Agonists (1 source) Codeine Drug Allergy Unknown [facility] Penicillins (antibiotic) (1 source) Penicillin Drug Allergy Unknown [facility] QUEtiapine (1 source) QUEtiapine Drug Allergy Unknown [facility] (20 sources) Codeine; Translations: [Codeine] Drug Allergy 3 Hives [facility] Work Phone: (20 sources) Penicillins; Translations: [Penicillins] Allergy to drug (finding) Hives, Unknown [facility] Work Phone: (10 sources) Promethazine; Translations: [promethazine] Drug Allergy [facility] (1 source) QUEtiapine Drug Allergy Seizures [facility] (2 sources) Codeine Drug Allergy 3 [facility] (3 sources) gabapentin; Translations: [Neurontin] Drug Allergy [facility] (1 source) Levamisole Drug Allergy [facility] (1 source) Morphine Drug Allergy 0 [facility] (2 sources) Penicillins Drug allergy (disorder) 3 [facility] (1 source) QUEtiapine Drug Allergy 3 [facility] (1 source) Penicillins Drug Allergy [...] 2 cap(s), Refills(s) 0, [facility]: [facility] #[id number], 156, cm, 07/16/22 10:58:00 EST, Height/Length Dosing, [...] # 2 tab(s), Refills(s) 0, [facility] [facility], 156, cm, 01/06/22 10:53:00 EDT, Height/Length [...] Allowed docusate sodium 50 mg / sennosides, fpc 8.6 mg oral tablet (2 sources) Start: [...] Daily, # 30 tab(s), Refills(s) 3, Pharmacy: [address], 156, cm, 02/04/22 15:47:00 EDT, Height/Length Dosing, 78, kg, 02/04/22 15:47:00 EDT, Weight Dosing Start Date: 02/25/22 Status: Ordered nystatin 100 unt/mg topical powder (1 source) Polyene Antifungal Start: 03-07-2023 Nyamyc [id number] UNIT/GM powder Apply 1 application topically in [...] 30 tab(s), Refills(s) 11, [facility]acy: [facility] #[id number], 156, cm, 07/16/22 10:58:00 EST, Height/Length Dosing, 78, kg, 07/16/22 10:58:00 EST, Weight Dosing Start Date: 10/04/22 Status: Ordered Start: 07-16-2022 take 1 tablet by marlen th once daily oxybutynin 10 mg ER Tab 10 mg = 1 tab(s), Oral, Daily, # 30 tab(s), Refills(s) 11, [facility]acy: [facility] #[id number], 156, cm, 07/16/22 10:58:00 EST, Height/Length Dosing, 78, kg, 07/16/22 10:58:00 EST, Weight Dosing Start Date: 07/16/22 Status: Ordered Start: 03-10-2022 take 1 tablet by marlen once daily oxybutynin 10 mg ER Tab 10 mg = 1 tab(s), Oral, Daily, # 30 tab(s), Refills(s) 3, [facility]: [facility] [facility], 156, cm, 02/04/22 15:47:00 EDT, Height/Length [...] 07-Jan-2021 Generic Substitution Allowed polyethylene glycol 3350 78455 mg powder for oral solution (2 sources) [...] Daily, # 30 cap(s), Refills(s) 0, Pharmacy: [address], 156, cm, 01/07/22 13:43:00 EDT, Height/Length [...] food., # 2 cap(s), Refills(s) 0, Pharmacy: [facility] #[id number], 156, cm, 11/26/22 8:15:00 EDT, Height/Length Dosing, [...] Discontinued Generic Substitution Allowed polyethylene glycol 3350 808467 mg / potassium chloride 2970 mg / sodium bicarbonate 6740 mg / sodium chloride 5860 mg / sodium sulfate 66365 mg powder for oral solution (8 sources) [...] spine] Episodic Other aftercare (2 sources) Other oysterman (current) drug therapy; Translations: [Other jail (current) drug therapy] Onset: 06-07-2022 Episodic Other [...] Range Facility Outside Recordson 12-28-2023 Outside Records [id number]#1.00TIFF Normal [facility] Physician Orderon 12-14-2023 Physician Order [id number]#1.00TIFF [facility] ED Note-Physicianon 03-14-20 ED Note-Physician [id number]#1.00CD:127 Normal [facility] ED Note-Physicianon 01-23-20 ED Note-Physician [id number]#1.00CD:127 [facility] ED Note-Physician [id number]#1.00CD:127 Normal [facility] Lab Reportson 01-22-2023 Lab Reports [id number]#1.00CD:127 [facility] Patient Correspondenceon Patient Correspondence [id number]#[id number]:127 [facility] CULTURE URINEon 01-16-2023 CULTURE URINE Isolate [...] R F Nitrofurantoin <=16 S F Normal [facility] Comment on above: Performed By: #### U MICRO, ERUR #### [facility] [address] [place] [address] Dr. Alfredo Lizama CBC AUTO DIFFon 01-13-2023 BASO # 0.1 103/ul Normal 0.0-0.1 [facility] Comment on above: Performed By: #### U MICRO, ERUR #### [facility] [address] [place] [address] Dr. Alfredo Lizama Basophils/100 WBC (Bld) 0.7 % Normal 0.2-2.0 [facility] Comment on above: Performed By: #### U MICRO, ERUR #### [facility] [address] [place] [address] Dr. Alfredo Lizama EO # 0.3 103/ul Normal 0.0-0.7 [facility] Comment on above: Performed By: #### U MICRO, ERUR #### [facility] [address] [place] [address] Dr. Alfredo Lizama Eosinophils/100 WBC (Bld) 3.2 % Normal 0.9-7.0 [facility] Comment on above: Performed By: #### U MICRO, ERUR #### [facility] [address] [place] [address] Dr. Alfredo Lizama Erythrocyte distribution width (RBC) [Ratio] 13.0 % Normal 11.0-15.0 [facility] Comment on above: Performed By: #### U MICRO, ERUR #### [facility] [address] [place] [address] Dr. Alfredo Lizama Hematocrit (Bld) [Volume fraction] 43.2 % Normal 36.0-48.0 [facility] Comment on above: Performed By: #### U MICRO, ERUR #### [facility] [address] [place] [address] Dr. Alfredo Lizama Hemoglobin (Bld) [Mass/Vol] 14.1 g/dL Normal 12.0-16.0 [facility] Comment on above: Performed By: #### U MICRO, ERUR #### [facility] [address] [place] [address] Dr. Alfredo Lizama IG # 0.02 10e3/ul Normal 0.00-0.03 [facility] Comment on above: Performed By: #### U MICRO, ERUR #### [facility] [address] [address] [address] Alfredo Lizama IG % 0.2 % Normal 0.0-0.5 [facility] Comment on above: Performed By: #### U MICRO, ERUR #### [facility] [address] [address] [address] Alfredo Lizama LYMPH # 3.0 103/ul Normal 1.2-3.8 [facility] Comment on above: Performed By: #### U MICRO, ERUR #### [facility] [address] [place] [address] Dr. Alfredo Lizama Lymphocytes/100 WBC (Bld) 35.6 % Normal 20.5-60.0 [facility] Comment on above: Performed By: #### U MICRO, ERUR #### [facility] [address] [place] [address] Dr. Alfredo Lizama MANUAL DIFF REQ NO Normal [facility] Comment on above: Performed By: #### U MICRO, ERUR #### [facility] [address] [place] [address] Dr. Alfredo Lizama MCH (RBC) [Entitic mass] 29.4 pg Normal 26.7-34.0 [facility] Comment on above: Performed By: #### U MICRO, ERUR #### [facility] [address] [place] [address] Dr. Alfredo Lizama MCHC (RBC) [Mass/Vol] 32.6 g/dL Normal 29.9-35.2 [facility] Comment on above: Performed By: #### U MICRO, ERUR #### [facility] [address] [address] [address] Alfredo Lizama MCV (RBC) [Entitic vol] 90.0 fL Normal 81.0-99.0 [facility] Comment on above: Performed By: #### U MICRO, ERUR #### [facility] [address] [place] [address] Dr. Alfredo Lizama MONO # 0.4 103/ul Normal 0.3-0.8 [facility] Comment on above: Performed By: #### U MICRO, ERUR #### [facility] [address] [place] [address] Dr. Alfredo Lizama Monocytes/100 WBC (Bld) 4.8 % Normal 1.7-12.0 [facility] Comment on above: Performed By: #### U MICRO, ERUR #### [facility] [address] [place] [address] Dr. Alfredo Lizama NEUT # 4.7 103/ul Normal 1.4-6.5 [facility] Comment on above: Performed By: #### U MICRO, ERUR #### [facility] [address] [place] [address] Dr. Alfredo Lizama Neutrophils/100 WBC (Bld) 55.5 % Normal 43.0-75.0 [facility] Comment on above: Performed By: #### U MICRO, ERUR #### [facility] [address] [place] [address] Dr. Alfredo Lizama Platelet mean volume (Bld) [Entitic vol] 9.5 fL Normal 9.5-13.5 [facility] Comment on above: Performed By: #### U MICRO, ERUR #### [facility] [address] [place] [address] Dr. Alfredo Lizama PLT 267 103/ul Normal 150-450 [facility] Comment on above: Performed By: #### U MICRO, ERUR #### [facility] [address] [place] [address] Dr. Alfredo Lizama RBC 4.80 106/ul Normal 4.20-5.40 [facility] Comment on above: Performed By: #### U MICRO, ERUR #### [facility] [address] [place] [address] Dr. Alfredo Lizama WBC 8.5 103/ul Normal 4.0-11.0 [facility] Comment on above: Performed By: #### U MICRO, ERUR #### [facility] [address] [place] [address] Dr. Alfredo Lizama ER URINE PROFILEon 3 Bilirubin Ql (U) Negative Normal NEGATIVE [facility] Comment on above: Performed By: #### E RUR, UMICRO #### [facility] [address] [place] [address] Dr. Alfredo Lizama Clarity (U) CLOUDY Abnormal CLEAR [facility] Comment on above: Performed By: #### CHINMAY CHAVESRO #### [facility] [address] [place] [address] Dr. Alfredo Lizama Color (U) YELLOW Normal YELLOW [facility] Comment on above: Performed By: #### CHINMAY CHAVESRO #### [facility] [address] [place] [address] Dr. Alfredo Lizama ERUAHD A micrscopic examina tion will be performed if indicated. Normal [facility] Comment on above: Performed By: #### CHINMAY CHAVESRO #### [facility] [address] [place] [address] Dr. Alfredo Lizama Glucose Ql (U) Negative Normal NEGATIVE [facility] Comment on above: Performed By: #### CHINMAY CHAVESRO #### [facility] [address] [place] [address] Dr. Alfredo Lizama Hemoglobin Ql (U) MODERATE Abnormal NEGATIVE [facility] Comment on above: Performed By: #### CHINMAY CHAVESRO #### [facility] [address] [place] [address] Dr. Alfredo Lizama Ketones Ql (U) TRACE Abnormal NEGATIVE [facility] Comment on above: Performed By: #### CHINMAY CHAVESRO #### [facility] [address] [place] [address] Dr. Alfredo Lizama LEUKOCYTES SMALL Abnormal NEGATIVE [facility] Comment on above: Performed By: #### CHINMAY CHAVESRO #### [facility] [address] [place] [address] Dr. Alfredo Lizama Nitrite Ql (U) Negative Normal NEGATIVE [facility] Comment on above: Performed By: #### CHINMAY CHAVESRO #### [facility] [address] [place] [address] Dr. Alfredo Lizama pH (U) 8.0 [pH] Normal 5-9 [facility] Comment on above: Performed By: #### E SEAN UMICRO #### [facility] [address] [place] [address] Dr. Alfredo Lizama Protein (U) [Mass/Vol] 100 mg/dL Abnormal NEGATIVE/ TRACE [facility] Comment on above: Performed By: #### E RUEsther, UMICRO #### [facility] [address] [place] [address] Dr. Alfredo Lizama SPEC GRAVITY 1.015 Normal 1.005-<=1.0 25 [facility] Comment on above: Performed By: #### E SEAN UMICRO #### [facility] [address] [place] [address] Dr. Alfredo Lizama UR MICRO IND INDICATED Normal [facility] Comment on above: Performed By: #### E SEAN UMICRO #### [facility] [address] [place] [address] Dr. Alfredo Lizama Urobilinogen Qn (U) 1.0 {Tesha'U}/dL Normal 0.2 - 1. 0 [facility] Comment on above: Performed By: #### Jacque ESTRADA UMICRO #### [facility] [address] [place] [address] Dr. Alfredo Lizama PROF CHEM 8 (BAS METB)on Anion gap [Moles/Vol] 8.4 mmol/L Normal [facility] Comment on above: Performed By: #### U MICRO, ERUR #### [facility] [address] [place] [address] Dr. Alfredo Lizama Calcium [Mass/Vol] 8.7 mg/dL Normal 8.5-10.1 [facility] Comment on above: Performed By: #### U MICRO, ERUR #### [facility] [address] [place] [address] Dr. Alfredo Lizama Chloride [Moles/Vol] 107 mmol/L Normal 98-107 [facility] Comment on above: Performed By: #### U MICRO, ERUR #### [facility] [address] [place] [address] Dr. Alfredo Lizama CO2 [Moles/Vol] 28.3 mmol/L Normal 21.0-32.0 [facility] Comment on above: Performed By: #### U MICRO, ERUR #### [facility] [address] [place] [address] Dr. Alfredo Lizama Creatinine [Mass/Vol] 0.70 mg/dL Normal 0.55-1.02 [facility] Comment on above: Performed By: #### U MICRO, ERUR #### [facility] [address] [place] [address] Dr. Alfredo Lizama EGFR-AF [place]IZEN [place] >60 Normal >=60 [facility] Comment on above: Performed By: #### U MICRO, ERUR #### [facility] [address] [place] [address] Dr. Alfredo Lizama EGFR-NON AF CITIZEN OF [place] >60 Normal >=60 [facility] Comment on above: Performed By: #### U MICRO, ERUR #### [facility] [address] [address] [address] Alfredo Lizama Glucose [Mass/Vol] 97 mg/dL Normal 74-106 [facility] Comment on above: Performed By: #### U MICRO, ERUR #### [facility] [address] [address] [address] Alfredo Lizama Potassium [Moles/Vol] 3.7 mmol/L Normal 3.5-5.1 [facility] Comment on above: Performed By: #### U MICRO, ERUR #### [facility] [address] [address] [address] Alfredo Lizama Sodium [Moles/Vol] 140 mmol/L Normal 136-145 [facility] Comment on above: Performed By: #### U MICRO, ERUR #### [facility] [address] [address] [address] Alfredo Lizama Urea nitrogen [Mass/Vol] 7.0 mg/dL Normal 7.0-18.0 [facility] Comment on above: Performed By: #### U MICRO, ERUR #### [facility] [address] [place] [address] Dr. Alfredo Lizama Urea nitrogen/Creatinine [Mass ratio] 10.0 mg/mg Normal [facility] Comment on above: Performed By: #### U MICRO, ERUR #### [facility] [address] [place] [address] Dr. Alfredo Lizama URINE MICROSCOPIC ONLYon AMORPHOUS CRYSTALS FEW Normal [facility] Comment on above: Performed By: #### E RUR, UMICRO #### [facility] [address] [place] [address] Dr. Alfredo Lizama BACTERIA LARGE Abnormal NONE SEEN [facility] Comment on above: Performed By: #### E RUR, UMICRO #### [facility] [address] [place] [address] Dr. Alfredo Lizama Bacteria identified Cx Nom (U) INDICATED Normal [facility] Comment on above: Performed By: #### E RUR, UMICRO #### [facility] [address] [place] [address] Dr. Alfredo Lizama CAST NONE SEEN Normal NONE SEEN [facility] Comment on above: Performed By: #### E RUR, UMICRO #### [facility] [address] [place] [address] Dr. Alfredo Lizama Crystals LM Nom (Urine sed) SEEN Abnormal NONE SEEN [facility] Comment on above: Performed By: #### E RUR, UMICRO #### [facility] [address] [place] [address] Dr. Alfredo Lizama Epithelial cells LM Ql (Urine sed) RARE Normal NONE SEEN /RARE [facility] Comment on above: Performed By: #### E RUR, UMICRO #### [facility] [address] [place] [address] Dr. Alfredo Lizama MUCOUS NONE SEEN Normal NONE SEEN [facility] Comment on above: Performed By: #### E RUR, UMICRO #### [facility] [address] [place] [address] Dr. Alfredo Lizama RBC 2-5 Abnormal 0-2 [facility] Comment on above: Performed By: #### E RUR, UMICRO #### [facility] [address] [place], [place] [address] Dr. Alfredo Lizama TRIPLE PHOS CRYSTALS FEW Normal [facility] Comment on above: Performed By: #### LINDA CHAVES #### [facility] [address] [place], [place] [address] Dr. Alfredo Lizama WBC 75-100 Abnormal NONE SEEN [facility] Comment on above: Performed By: #### LINDA CHAVES #### [facility] [address] [place], [place] [address] Dr. Alfredo Lizama Patient Letter FTon 2022 Patient Letter [facility] [place] (Inserted Image. Shelly ble to display) January 10, 2023 MORALES LEE [address] [place] [address] MORALES LEE 1975 Dear Morales, I am corresponding with you by certified mail because of repeat non compliance. You missed your catheter exchange appointment on 12/31/22. It is recommended your Alvares catheter be exchanged every 4 weeks to prevent encrustation and infection. Also you were referred to Dr Zhang at [facility] for further evaluation regarding your condition [...] [facility] [address], [place] [address] Normal [facility] CULTURE URINEon 12-25-2022 CULTURE URINE [...] F Trimethoprim/Sulfamethoxazo le <=20 S F Normal [facility] Comment on above: Performed By: #### U MICRO, ERUR #### [facility] [address] [place] [address] Dr. Alfredo Lizama AMYLASEon 11-09-2022 Amylase [Catalytic activity/Vol] 14 U/L Critically low 25-115 [facility] Comment on above: Performed By: #### U MICRO, ERUR #### [facility] [address] [place] [address] Dr. Alfredo Lizama CBC AUTO DIFFon 11-09-2022 BASO # 0.1 103/ul Normal 0.0-0.1 [facility] Comment on above: Performed By: #### U MICRO, ERUR #### [facility] [address] [place] [address] Dr. Alfredo Lizama Basophils/100 WBC (Bld) 0.8 % Normal 0.2-2.0 [facility] Comment on above: Performed By: #### U MICRO, ERUR #### [facility] [address] [place] [address] Dr. Alfredo Lizama EO # 0.2 103/ul Normal 0.0-0.7 [facility] Comment on above: Performed By: #### U MICRO, ERUR #### [facility] [address] [place] [address] Dr. Alfredo Lizama Eosinophils/100 WBC (Bld) 2.5 % Normal 0.9-7.0 [facility] Comment on above: Performed By: #### U MICRO, ERUR #### [facility] [address] [place] [address] Dr. Alfredo Lizama Erythrocyte distribution width (RBC) [Ratio] 12.7 % Normal 11.0-15.0 [facility] Comment on above: Performed By: #### U MICRO, ERUR #### [facility] [address] [place] [address] Dr. Alfredo Lizama Hematocrit (Bld) [Volume fraction] 46.3 % Normal 36.0-48.0 [facility] Comment on above: Performed By: #### U MICRO, ERUR #### [facility] [address] [place] [address] Dr. Alfredo Lizama Hemoglobin (Bld) [Mass/Vol] 15.9 g/dL Normal 12.0-16.0 [facility] Comment on above: Performed By: #### U MICRO, ERUR #### [facility] [address] [place] [address] Dr. Alfredo Lizama IG # 0.02 10e3/ul Normal 0.00-0.03 [facility] Comment on above: Performed By: #### U MICRO, ERUR #### [facility] [address] [place] [address] Dr. Alfredo Lizama IG % 0.2 % Normal 0.0-0.5 [facility] Comment on above: Performed By: #### U MICRO, ERUR #### [facility] [address] [place] [address] Dr. Alfredo Lizama LYMPH # 2.6 103/ul Normal 1.2-3.8 [facility] Comment on above: Performed By: #### U MICRO, ERUR #### [facility] [address] [place] [address] Dr. Alfredo Lizama Lymphocytes/100 WBC (Bld) 31.3 % Normal 20.5-60.0 [facility] Comment on above: Performed By: #### U MICRO, ERUR #### [facility] [address] [place] [address] Dr. Alfredo Lizama MANUAL DIFF REQ NO Normal [facility] Comment on above: Performed By: #### U MICRO, ERUR #### [facility] [address] [place] [address] Dr. Alfredo Lizama MCH (RBC) [Entitic mass] 29.3 pg Normal 26.7-34.0 [facility] Comment on above: Performed By: #### U MICRO, ERUR #### [facility] [address] [place] [address] Dr. Alfredo Lizama MCHC (RBC) [Mass/Vol] 34.3 g/dL Normal 29.9-35.2 [facility] Comment on above: Performed By: #### U MICRO, ERUR #### [facility] [address] [place] [address] Dr. Alfredo Lizama MCV (RBC) [Entitic vol] 85.4 fL Normal 81.0-99.0 [facility] Comment on above: Performed By: #### U MICRO, ERUR #### [facility] [address] [address] [address] Alfredo Lizama MONO # 0.6 103/ul Normal 0.3-0.8 [facility] Comment on above: Performed By: #### U MICRO, ERUR #### [facility] [address] [place] [address] Dr. Alfredo Lizama Monocytes/100 WBC (Bld) 6.6 % Normal 1.7-12.0 [facility] Comment on above: Performed By: #### U MICRO, ERUR #### [facility] [address] [place] [address] Dr. Alfredo Lizama NEUT # 4.9 103/ul Normal 1.4-6.5 [facility] Comment on above: Performed By: #### U MICRO, ERUR #### [facility] [address] [place] [address] Dr. Alfredo Lizama Neutrophils/100 WBC (Bld) 58.6 % Normal 43.0-75.0 [facility] Comment on above: Performed By: #### U MICRO, ERUR #### [facility] [address] [address] [address] Alfredo Lizama Platelet mean volume (Bld) [Entitic vol] 9.5 fL Normal 9.5-13.5 [facility] Comment on above: Performed By: #### U MICRO, ERUR #### [facility] [address] [place] [address] Dr. Alfredo Lizama PLT 273 103/ul Normal 150-450 [facility] Comment on above: Performed By: #### U MICRO, ERUR #### [facility] [address] [place] [address] Dr. Alfredo Lizama RBC 5.42 106/ul Critically high 4.20-5.40 [facility] Comment on above: Performed By: #### U MICRO, ERUR #### [facility] [address] [place] [address] Dr. Alfredo Lizama WBC 8.4 103/ul Normal 4.0-11.0 [facility] Comment on above: Performed By: #### U MICRO, ERUR #### [facility] [address] [place] [address] Dr. Alfredo Lizama CULTURE URINEon 11-09-2022 CULTURE URINE Culture Observations : MODERATE GROWTH OF MIXED GENITAL ROSANNA. NO POTENTIAL PATHOGENS SEEN. Normal [facility] Comment on above: Performed By: #### U MICRO, ERUR #### [facility] [address] [place] [address] Dr. Alfredo Lizama ER URINE PROFILEon 3 Bilirubin Ql (U) Negative Normal NEGATIVE [facility] Comment on above: Performed By: #### U MICRO, ERUR #### [facility] [address] [place] [address] Dr. Alfredo Lizama Clarity (U) CLEAR Normal CLEAR [facility] Comment on above: Performed By: #### U MICRO, ERUR #### [facility] [address] [place] [address] Dr. Alfredo Lizama Color (U) LT. YELLOW Normal YELLOW [facility] Comment on above: Performed By: #### U MICRO, ERUR #### [facility] [address] [place] [address] Dr. Alfredo Lizama ERUAHD A micrscopic examina tion will be performed if indicated. Normal [facility] Comment on above: Performed By: #### U MICRO, ERUR #### [facility] [address] [place] [address] Dr. Alfredo Lizama Glucose Ql (U) Negative Normal NEGATIVE [facility] Comment on above: Performed By: #### U MICRO, ERUR #### [facility] [address] [address] [address] Alfredo Lizama Hemoglobin Ql (U) MODERATE Abnormal NEGATIVE [facility] Comment on above: Performed By: #### U MICRO, ERUR #### [facility] [address] [place] [address] Dr. Alfredo Lizama Ketones Ql (U) Negative Normal NEGATIVE [facility] Comment on above: Performed By: #### U MICRO, ERUR #### [facility] [address] [place] [address] Dr. Alfredo Lizama LEUKOCYTES LARGE Abnormal NEGATIVE [facility] Comment on above: Performed By: #### U MICRO, ERUR #### [facility] [address] [place] [address] Dr. Alfredo Lizama Nitrite Ql (U) Negative Normal NEGATIVE [facility] Comment on above: Performed By: #### U MICRO, ERUR #### [facility] [address] [place] [address] Dr. Alfredo Lizama pH (U) 7.0 [pH] Normal 5-9 [facility] Comment on above: Performed By: #### U MICRO, ERUR #### [facility] [address] [place] [address] Dr. Alfredo Lizama SPEC GRAVITY 1.015 Normal 1.005-<=1.0 25 [facility] Comment on above: Performed By: #### U MICRO, ERUR #### [facility] [address] [place] [address] Dr. Alfredo Lizama UA PROTEIN Negative Normal NEGATIVE/ TRACE [facility] Comment on above: Performed By: #### U MICRO, ERUR #### [facility] [address] [place] [address] Dr. Alfredo Lizama UR MICRO IND INDICATED Normal [facility] Comment on above: Performed By: #### U MICRO, ERUR #### [facility] [address] [place] [address] Dr. Alfredo Lizama Urobilinogen Qn (U) 0.2 {Tesha'U}/dL Normal 0.2 - 1. 0 [facility] Comment on above: Performed By: #### U MICRO, ERUR #### [facility] [address] [address] [address] Alfredo Lizama LIPASEon 11-09-2022 Lipase [Catalytic activity/Vol] 34.0 U/L Critically low 73.0-393.0 [facility] Comment on above: Performed By: #### U MICRO, ERUR #### [facility] [address] [place] [address] Dr. Alfredo Lizama PROF 14(COMP METB)on 023 Albumin [Mass/Vol] 4.0 g/dL Normal 3.4-5.0 [facility] Comment on above: Performed By: #### U MICRO, ERUR #### [facility] [address] [place] [address] Dr. Alfredo Lizama Albumin/Globulin [Mass ratio] 1.0 {ratio} Normal [facility] Comment on above: Performed By: #### U MICRO, ERUR #### [facility] [address] [place] [address] Dr. Alfredo Lizama ALP [Catalytic activity/Vol] 206 U/L Critically high 46-116 [facility] Comment on above: Performed By: #### U MICRO, ERUR #### [facility] [address] [place] [address] Dr. Alfredo Lizama ALT [Catalytic activity/Vol] 53 U/L Normal 14-59 [facility] Comment on above: Performed By: #### U MICRO, ERUR #### [facility] [address] [place] [address] Dr. Alfredo Lizama Anion gap [Moles/Vol] 14.5 mmol/L Normal [facility] Comment on above: Performed By: #### U MICRO, ERUR #### [facility] [address] [place] [address] Dr. Alfredo Lizama AST [Catalytic activity/Vol] 55 U/L Critically high 15-37 [facility] Comment on above: Performed By: #### U MICRO, ERUR #### [facility] [address] [place] [address] Dr. Alfredo Lizama Bilirubin [Mass/Vol] 0.7 mg/dL Normal 0.2-1.0 [facility] Comment on above: Performed By: #### U MICRO, ERUR #### [facility] [address] [place] [address] Dr. Alfredo Lizama Calcium [Mass/Vol] 9.0 mg/dL Normal 8.5-10.1 [facility] Comment on above: Performed By: #### U MICRO, ERUR #### [facility] [address] [place] [address] Dr. Alfredo Lizama Chloride [Moles/Vol] 100 mmol/L Normal 98-107 [facility] Comment on above: Performed By: #### U MICRO, ERUR #### [facility] [address] [place] [address] Dr. Alfredo Lizama CO2 [Moles/Vol] 28.3 mmol/L Normal 21.0-32.0 [facility] Comment on above: Performed By: #### U MICRO, ERUR #### [facility] [address] [place] [address] Dr. Alfredo Lizama Creatinine [Mass/Vol] 0.65 mg/dL Normal 0.55-1.02 [facility] Comment on above: Performed By: #### U MICRO, ERUR #### [facility] [address] [place] [address] Dr. Alfredo Lizama EGFR-AF CITIZEN [place] >60 Normal >=60 [facility] Comment on above: Performed By: #### U MICRO, ERUR #### [facility] [address] [place] [address] Dr. Alfredo Lizama EGFR-NON AF [place]IZEN [place] >60 Normal >=60 [facility] Comment on above: Performed By: #### U MICRO, ERUR #### [facility] [address] [place] [address] Dr. Alfredo Lizama Globulin (S) [Mass/Vol] 3.9 g/dL Normal [facility] Comment on above: Performed By: #### U MICRO, ERUR #### [facility] [address] [place] [address] Dr. Alfredo Lizama Glucose [Mass/Vol] 134 mg/dL Critically high 74-106 [facility] Comment on above: Performed By: #### U MICRO, ERUR #### [facility] [address] [place] [address] Dr. Alfredo Lizama Potassium [Moles/Vol] 3.8 mmol/L Normal 3.5-5.1 [facility] Comment on above: Performed By: #### U MICRO, ERUR #### [facility] [address] [place] [address] Dr. Alfredo Lizama Protein [Mass/Vol] 7.9 g/dL Normal 6.4-8.2 [facility] Comment on above: Performed By: #### U MICRO, ERUR #### [facility] [address] [place] [address] Dr. Alfredo Lizama Sodium [Moles/Vol] 139 mmol/L Normal 136-145 [facility] Comment on above: Performed By: #### U MICRO, ERUR #### [facility] [address] [place] [address] Dr. Alfredo Lizama Urea nitrogen [Mass/Vol] 7.0 mg/dL Normal 7.0-18.0 [facility] Comment on above: Performed By: #### U MICRO, ERUR #### [facility] [address] [place] [address] Dr. Alfredo Lizama Urea nitrogen/Creatinine [Mass ratio] 10.7 mg/mg Normal [facility] Comment on above: Performed By: #### U MICRO, ERUR #### [facility] [address] [place] [address] Dr. Alfredo Lizama URINE MICROSCOPIC ONLYon BACTERIA TRACE Abnormal NONE SEEN [facility] Comment on above: Performed By: #### U MICRO, ERUR #### [facility] [address] [place] [address] Dr. Alfredo Lizama Bacteria identified Cx Nom (U) INDICATED Normal [facility] Comment on above: Performed By: #### U MICRO, ERUR #### [facility] [address] [place] [address] Dr. Alfredo Lizama CAST NONE SEEN Normal NONE SEEN [facility] Comment on above: Performed By: #### U MICRO, ERUR #### [facility] [address] [address] [address] Alfredo Lizama Crystals LM Nom (Urine sed) NONE SEEN Normal NONE SEEN [facility] Comment on above: Performed By: #### U MICRO, ERUR #### [facility] [address] [address] [address] Alfredo Lizama Epithelial cells LM Ql (Urine sed) FEW Abnormal NONE SEEN /RARE [facility] Comment on above: Performed By: #### U MICRO, ERUR #### [facility] [address] [address] [address] Alfredo Lizama MUCOUS NONE SEEN Normal NONE SEEN [facility] Comment on above: Performed By: #### U MICRO, ERUR #### [facility] [address] [place] [address] Dr. Alfredo Lizama RBC 20-50 Abnormal 0-2 [facility] Comment on above: Performed By: #### U MICRO, ERUR #### [facility] [address] [address] [address] Alfredo Lizama WBC 20-50 Abnormal NONE SEEN [facility] Comment on above: Performed By: #### U MICRO, ERUR #### [facility] [address] [place] [address] Dr. Alfredo Lizama XR ABD FLAT_UPon 11-09-2022 [...] ENRIQUE LOWE Date: 2022-11-09 11:06 Normal [facility] CULTURE URINEon 10-18-2022 CULTURE URINE Isolate [...] Trimethoprim/Sulfamethoxazo le <=10 S F Normal [facility] Comment on above: Performed By: #### U MICRO, ERUR #### [facility] [address] [place] [address] Dr. Alfredo Lizama ER URINE PROFILEon 3 Bilirubin Ql (U) Negative Normal NEGATIVE [facility] Comment on above: Performed By: #### FER CHAVESICRO #### [facility] [address] [place] [address] Dr. Alfredo Lizama Clarity (U) CLEAR Normal CLEAR [facility] Comment on above: Performed By: #### Jacque ESTRADA UMICRO #### [facility] [address] [place] [address] Dr. Alfredo Lizama Color (U) YELLOW Normal YELLOW [facility] Comment on above: Performed By: #### E SEAN UMICRO #### [facility] [address] [place] [address] Dr. Alfredo Lizama ERUAHD A micrscopic examina tion will be performed if indicated. Normal [facility] Comment on above: Performed By: #### E RUR, UMICRO #### [facility] [address] [place] [address] Dr. Alfredo Lizama Glucose Ql (U) Negative Normal NEGATIVE [facility] Comment on above: Performed By: #### Jacque ESTRADA UMICRO #### [facility] [address] [place] [address] Dr. Alfredo Lizama Hemoglobin Ql (U) LARGE Abnormal NEGATIVE [facility] Comment on above: Performed By: #### Jacque ESTRADA UMICRO #### [facility] [address] [place] [address] Dr. Alfredo Lizama Ketones Ql (U) Negative Normal NEGATIVE [facility] Comment on above: Performed By: #### Jacque ESTRADA UMICRO #### [facility] [address] [place] [address] Dr. Alfredo Lizama LEUKOCYTES LARGE Abnormal NEGATIVE [facility] Comment on above: Performed By: #### Jacque ESTRADA UMICRO #### [facility] [address] [place] [address] Dr. Alfredo Lizama Nitrite Ql (U) Positive Abnormal NEGATIVE [facility] Comment on above: Performed By: #### Jacque ESTRADA UMICRO #### [facility] [address] [place] [address] Dr. Alfredo Lizama pH (U) 6.5 [pH] Normal 5-9 [facility] Comment on above: Performed By: #### Jacque ESTRADA UMICRO #### [facility] [address] [place] [address] Dr. Alfredo Liazma Protein (U) [Mass/Vol] 100 mg/dL Abnormal NEGATIVE/ TRACE [facility] Comment on above: Performed By: #### Jacque ESTRADA UMICRO #### [facility] [address] [place] [address] Dr. Alfredo Lizama SPEC GRAVITY 1.010 Normal 1.005-<=1.0 25 [facility] Comment on above: Performed By: #### Jacque ESTRADA UMICRO #### [facility] [address] [place] [address] Dr. Alfredo Lizama UR MICRO IND INDICATED Normal [facility] Comment on above: Performed By: #### E RUR, UMICRO #### [facility] [address] [place] [address] Dr. Alfredo Lizama Urobilinogen Qn (U) 1.0 {Tesha'U}/dL Normal 0.2 - 1. 0 [facility] Comment on above: Performed By: #### E RUR, UMICRO #### [facility] [address] [address] [address] Alfredo Lizama URINE MICROSCOPIC ONLYon BACTERIA MODERATE Abnormal NONE SEEN [facility] Comment on above: Performed By: #### U MICRO, ERUR #### [facility] [address] [place] [address] Dr. Alfredo Lizama Bacteria identified Cx Nom (U) INDICATED Normal [facility] Comment on above: Performed By: #### U MICRO, ERUR #### [facility] [address] [place] [address] Dr. Alfredo Lizama CA OX CRYSTALS RARE Normal [facility] Comment on above: Performed By: #### U MICRO, ERUR #### [facility] [address] [place] [address] Dr. Alfredo Lizama CAST NONE SEEN Normal NONE SEEN [facility] Comment on above: Performed By: #### U MICRO, ERUR #### [facility] [address] [place] [address] Dr. Alfredo Lizama Crystals LM Nom (Urine sed) SEEN Abnormal NONE SEEN [facility] Comment on above: Performed By: #### U MICRO, ERUR #### [facility] [address] [place] [address] Dr. Alfredo Lizama Epithelial cells LM Ql (Urine sed) MODERATE Abnormal NONE SEEN /RARE [facility] Comment on above: Performed By: #### U MICRO, ERUR #### [facility] [address] [place] [address] Dr. Alfredo Lizama MUCOUS TRACE Abnormal NONE SEEN [facility] Comment on above: Performed By: #### U MICRO, ERUR #### [facility] [address] [place] [address] Dr. Alfredo Lizama RBC 20-50 Abnormal 0-2 [facility] Comment on above: Performed By: #### U MICRO, ERUR #### [facility] [address] [place] [address] Dr. Alfredo Lizama WBC 50-75 Abnormal NONE SEEN [facility] Comment on above: Performed By: #### U MICRO, ERUR #### [facility] [address] [place] [address] Dr. Alfredo Lizama Covid-19 PCR ([facility])on 08-06 SARS-CoV-2 (COVID-19) RNA ADRIÁN+probe Ql (Unsp spec) Not detected Normal NOT DETECTED [facility] Comment on above: Result Comment: When [...] for this test is supported by the User Interface Engineer of Health and Human Service's declaration that [...] Performed By: #### U MICRO, ERUR #### [facility] [address] [place] [address] Dr. Alfredo Lizama CBC AUTO DIFFon 08-24-2022 BASO # 0.1 103/ul Normal 0.0-0.1 [facility] Comment on above: Performed By: #### C BC #### [facility] [address] [place] [address] Dr. Alfredo Lizama Basophils/100 WBC (Bld) 0.8 % Normal 0.2-2.0 [facility] Comment on above: Performed By: #### C BC #### [facility] [address] [address] [address] Alfredo Lizama EO # 0.3 103/ul Normal 0.0-0.7 [facility] Comment on above: Performed By: #### C BC #### [facility] [address] [place] [address] Dr. Alfredo Lizama Eosinophils/100 WBC (Bld) 3.1 % Normal 0.9-7.0 [facility] Comment on above: Performed By: #### C BC #### [facility] [address] [place] [address] Dr. Alfredo Lizama Erythrocyte distribution width (RBC) [Ratio] 13.4 % Normal 11.0-15.0 [facility] Comment on above: Performed By: #### C BC #### [facility] [address] [place] [address] Dr. Alfredo Lizama Hematocrit (Bld) [Volume fraction] 47.2 % Normal 36.0-48.0 [facility] Comment on above: Performed By: #### C BC #### [facility] [address] [place] [address] Dr. Alfredo Lizama Hemoglobin (Bld) [Mass/Vol] 15.6 g/dL Normal 12.0-16.0 [facility] Comment on above: Performed By: #### C BC #### [facility] [address] [place] [address] Dr. Alfredo Lizama IG # 0.02 10e3/ul Normal 0.00-0.03 [facility] Comment on above: Performed By: #### C BC #### [facility] [address] [place] [address] Dr. Alfredo Lizama IG % 0.2 % Normal 0.0-0.5 [facility] Comment on above: Performed By: #### C BC #### [facility] [address] [place] [address] Dr. Alfredo Lizama LYMPH # 4.4 103/ul Critically high 1.2-3.8 [facility] Comment on above: Performed By: #### C BC #### [facility] [address] [place] [address] Dr. Alfredo Lizama Lymphocytes/100 WBC (Bld) 42.3 % Normal 20.5-60.0 [facility] Comment on above: Performed By: #### C BC #### [facility] [address] [place] [address] Dr. Alfredo Lizama MANUAL DIFF REQ NO Normal [facility] Comment on above: Performed By: #### C BC #### [facility] [address] [place] [address] Dr. Alfredo Lizama MCH (RBC) [Entitic mass] 28.8 pg Normal 26.7-34.0 [facility] Comment on above: Performed By: #### C BC #### [facility] [address] [place] [address] Dr. Alfredo Lizama MCHC (RBC) [Mass/Vol] 33.1 g/dL Normal 29.9-35.2 [facility] Comment on above: Performed By: #### C BC #### [facility] [address] [place] [address] Dr. Alfredo Lizama MCV (RBC) [Entitic vol] 87.2 fL Normal 81.0-99.0 [facility] Comment on above: Performed By: #### C BC #### [facility] [address] [place] [address] Dr. Alfredo Lizama MONO # 0.6 103/ul Normal 0.3-0.8 [facility] Comment on above: Performed By: #### C BC #### [facility] [address] [place] [address] Dr. Alfredo Lizama Monocytes/100 WBC (Bld) 5.3 % Normal 1.7-12.0 [facility] Comment on above: Performed By: #### C BC #### [facility] [address] [place] [address] Dr. Alfredo Lizama NEUT # 5.0 103/ul Normal 1.4-6.5 [facility] Comment on above: Performed By: #### C BC #### [facility] [address] [address] [address] Alfredo Lizama Neutrophils/100 WBC (Bld) 48.3 % Normal 43.0-75.0 [facility] Comment on above: Performed By: #### C BC #### [facility] [address] [address] [address] Alfredo Lizama Platelet mean volume (Bld) [Entitic vol] 9.9 fL Normal 9.5-13.5 [facility] Comment on above: Performed By: #### C BC #### [facility] [address] [address] [address] Alfredo Lizama PLT 298 103/ul Normal 150-450 [facility] Comment on above: Performed By: #### C BC #### [facility] [address] [place] [address] Dr. Alfredo Lizama RBC 5.41 106/ul Critically high 4.20-5.40 [facility] Comment on above: Performed By: #### C BC #### [facility] [address] [address] [address] Alfredo Lizama WBC 10.3 103/ul Normal 4.0-11.0 [facility] Comment on above: Performed By: #### C BC #### [facility] [address] [place] [address] Dr. Alfredo Lizama PROF CHEM 8 (BAS METB)on Anion gap [Moles/Vol] 14.3 mmol/L Normal [facility] Comment on above: Performed By: #### U MICRO, ERUR #### [facility] [address] [place] [address] Dr. Alfredo Lizama Calcium [Mass/Vol] 9.1 mg/dL Normal 8.5-10.1 [facility] Comment on above: Performed By: #### U MICRO, ERUR #### [facility] [facility] [address] [place] [address] Dr. Alfredo Lizama Chloride [Moles/Vol] 99 mmol/L Normal 98-107 [facility] Comment on above: Performed By: #### U MICRO, ERUR #### [facility] [address] [address] [address] Alfredo Lizama CO2 [Moles/Vol] 29.0 mmol/L Normal 21.0-32.0 [facility] Comment on above: Performed By: #### U MICRO, ERUR #### [facility] [address] [address] [address] Alfredo Lizama Creatinine [Mass/Vol] 0.70 mg/dL Normal 0.55-1.02 [facility] Comment on above: Performed By: #### U MICRO, ERUR #### [facility] [address] [address] [address] Alfredo Lizama EGFR-AF [place]IZ[place] >60 Normal >=60 [facility] Comment on above: Performed By: #### U MICRO, ERUR #### [facility] [address] [address] [address] Alfredo Lizama EGFR-NON AF CITIZEN OF [place] >60 Normal >=60 [facility] Comment on above: Performed By: #### U MICRO, ERUR #### [facility] [address] [address] [address] Alfredo Lizama Glucose [Mass/Vol] 121 mg/dL Critically high 74-106 [facility] Comment on above: Performed By: #### U MICRO, ERUR #### [facility] [address] [address] [address] Alfredo Lizama Potassium [Moles/Vol] 3.3 mmol/L Critically low 3.5-5.1 [facility] Comment on above: Performed By: #### U MICRO, ERUR #### [facility] [address] [address] [address] Alfredo Lizama Sodium [Moles/Vol] 139 mmol/L Normal 136-145 [facility] Comment on above: Performed By: #### U MICRO, ERUR #### [facility] [address] [address] [address] Alfredo Lizama Urea nitrogen [Mass/Vol] 5.0 mg/dL Critically low 7.0-18.0 [facility] Comment on above: Performed By: #### U MICRO, ERUR #### [facility] [address] [place] [address] Dr. Alfredo Lizama Urea nitrogen/Creatinine [Mass ratio] 7.1 mg/mg Normal [facility] Comment on above: Performed By: #### U MICRO, ERUR #### [facility] [address] [place] [address] Dr. Alfredo Lizama PROTIMEon 08-24-2022 INR Coag (PPP) [Relative time] 0.99 {INR} Normal [facility] Comment on above: Performed By: #### P T, PTT #### [facility] [address] [place] [address] Dr. Alfredo Lizama INR GUIDELINES SEE BELOW Normal [facility] Comment on above: Result Comment: MARY JO RED INR: 2.0 - 3.0 CONDITIONS NOT LISTED BELOW 2.5 - 3.5 FOR PROSTHETIC HEART VALVE REPLACEMENT 2.5 - 3.5 RECURRENT THROMBOSIS Performed By: #### P T, PTT #### [facility] [address] [place] [address] Dr. Alfredo Lizama PT Coag (PPP) [Time] 10.7 s Normal 9.0-11.6 [facility] Comment on above: Performed By: #### P T, PTT #### [facility] [address] [place] [address] Dr. Alfredo Lizama PTTon 08-24-2022 aPTT Coag (Bld) [Time] 31.7 s Normal 22.3-36.2 [facility] Comment on above: Performed By: #### P T, PTT #### [facility] [address] [place] [address] Dr. Alfredo Lizama BN SACRUM/COCCYX, MIN 2 [...] 09/20/2019. Thoracolumbar spine radiographs 09/08/2021. ACCESSION NUMBER(S): [id number]; [id number]; [id number] ORDERING CLINICIAN: CANDICE PEREZ FINDINGS: Three views [...] Electronically signed by: GOMEZ JAMA MD Normal [facility] BN SPINE, LUMBOSACRAL; 2 OR 3 VIEWSon [...] 09/20/2019. Thoracolumbar spine radiographs 09/08/2021. ACCESSION NUMBER(S): [id number]; [id number]; [id number] ORDERING CLINICIAN: CANDICE PEREZ FINDINGS: Three views [...] Electronically signed by: GOMEZ JAMA MD Normal [facility] SPINE, THORACIC, 3 VIEWSo n 06-07-2022 BN [...] 09/20/2019. Thoracolumbar spine radiographs 09/08/2021. ACCESSION NUMBER(S): [id number]; [id number]; [id number] ORDERING CLINICIAN: CANDICE PEREZ FINDINGS: Three views [...] Electronically signed by: GOMEZ JAMA MD Normal [facility] CBC AND DIFFERENTIALon 06-07 % AUTOMATED IMMATURE GRAN 0.2 % Normal 0.0 - 0.9 [facility] Comment on above: Result Comment: Jaleesa ture Granulocyte Count (IG) includes promyelocytes, myelocytes and metamyelocytes but does not include bands. Percent differential counts (%) should be interpreted in the context of the absolute cell counts (cells/L). Performed By: #### R ENAL #### [facility] [address] [place] [address] Basophils (Bld) [#/Vol] 0.09 10*3/uL Normal 0.00 - 0.10 [facility] Comment on above: Performed By: #### R ENAL #### [facility] [address] [place] [address] Basophils/100 WBC (Bld) 1.0 % Normal 0.0 - 2.0 [facility] Comment on above: Performed By: #### R ENAL #### [facility] [address] [place] [address] Eosinophils (Bld) [#/Vol] 0.24 10*3/uL Normal 0.00 - 0.70 [facility] Comment on above: Performed By: #### R ENAL #### [facility] [address] [place] [address] Eosinophils/100 WBC (Bld) 2.6 % Normal 0.0 - 6.0 [facility] Comment on above: Performed By: #### R ENAL #### [facility] [address] [place] [address] Erythrocyte distribution width (RBC) [Ratio] 12.9 % Normal 11.5 - 14.5 [facility] Comment on above: Performed By: #### R ENAL #### [facility] [address] [place] [address] Hematocrit (Bld) [Volume fraction] 48.4 % High 36.0 - 46.0 [facility] Comment on above: Performed By: #### R ENAL #### [facility] [address] [place] [address] Hemoglobin (Bld) [Mass/Vol] 17.1 g/dL High 12.0 - 16.0 [facility] Comment on above: Performed By: #### R ENAL #### [facility] [address] [place] [address] Lymphocytes (Bld) [#/Vol] 2.93 10*3/uL Normal 1.20 - 4.80 [facility] Comment on above: Performed By: #### R ENAL #### [facility] [address] [place] [address] Lymphocytes/100 WBC (Bld) 31.9 % Normal 13.0 - 44.0 [facility] Comment on above: Performed By: #### R ENAL #### [facility] [address] [place] [address] MCHC (RBC) [Mass/Vol] 35.3 g/dL Normal 32.0 - 36.0 [facility] Comment on above: Performed By: #### R ENAL #### [facility] [address] [place] [address] MCV (RBC) [Entitic vol] 85 fL Normal 80 - 100 [facility] Comment on above: Performed By: #### R ENAL #### [facility] [address] [place] [address] Monocytes (Bld) [#/Vol] 0.36 10*3/uL Normal 0.10 - 1.00 [facility] Comment on above: Performed By: #### R ENAL #### [facility] [address] [place] [address] Monocytes/100 WBC (Bld) 3.9 % Normal 2.0 - 10.0 [facility] Comment on above: Performed By: #### R ENAL #### [facility] [address] [place] [address] Neutrophils (Bld) [#/Vol] 5.54 10*3/uL Normal 1.20 - 7.70 [facility] Comment on above: Performed By: #### R ENAL #### [facility] [address] [place] [address] Neutrophils/100 WBC (Bld) 60.4 % Normal 40.0 - 80.0 [facility] Comment on above: Performed By: #### R ENAL #### [facility] [address] [place] [address] NUCLEATED RBC 0.0 /100 WBC Normal 0.0-0.0 [facility] Comment on above: Performed By: #### R ENAL #### [facility] [address] [place] [address] Platelets (Bld) [#/Vol] 365 10*3/uL Normal 150 - 450 [facility] Comment on above: Performed By: #### R ENAL #### [facility] [address] [place] [address] RBC 5.69 x10E12/L High 4.00 - 5.20 [facility] Comment on above: Performed By: #### R ENAL #### [facility] [address] [place] [address] WBC (Bld) [#/Vol] 9.2 10*3/uL Normal 4.4 - 11.3 [facility] Comment on above: Performed By: #### R ENAL #### [facility] [address] [place] [address] COMPREHENSIVE PANELon 2021 Albumin [Mass/Vol] 4.6 g/dL Normal 3.4 - 5.0 [facility] Comment on above: Performed By: #### R ENAL #### [facility] [address] [place] [address] ALP [Catalytic activity/Vol] 192 U/L High 33 - 110 [facility] Comment on above: Performed By: #### R ENAL #### [facility] [address] [place] [address] ALT [Catalytic activity/Vol] 33 U/L Normal 7 - 45 [facility] Comment on above: Result Comment: Melly ents treated with Sulfasalazine may generate falsely decreased results for ALT. Performed By: #### R ENAL #### [facility] [address] [place] [address] Anion gap [Moles/Vol] 16 mmol/L Normal 10 - 20 [facility] Comment on above: Performed By: #### R ENAL #### [facility] [address] [place] [address] AST [Catalytic activity/Vol] 51 U/L High 9 - 39 [facility] Comment on above: Performed By: #### R ENAL #### [facility] [address] [place] [address] Bilirubin [Mass/Vol] 0.5 mg/dL Normal 0.0 - 1.2 [facility] Comment on above: Performed By: #### R ENAL #### [facility] [address] [place] [address] Calcium [Mass/Vol] 10.3 mg/dL Normal 8.6 - 10.6 [facility] Comment on above: Performed By: #### R ENAL #### [facility] [address] [place] [address] Chloride [Moles/Vol] 101 mmol/L Normal 98 - 107 [facility] Comment on above: Performed By: #### R ENAL #### [facility] [address] [place] [address] Creatinine [Mass/Vol] 0.61 mg/dL Normal 0.50 - 1.05 [facility] Comment on above: Performed By: #### R ENAL #### [facility] [address] [place] [address] eGFR FEMALE >90 Normal >90 [facility] Comment on above: Result Comment: CALC ULATIONS OF ESTIMATED GFR ARE PERFORMED USING THE 2020 CKD-EPI STUDY REFIT EQUATION WITHOUT THE RACE VARIABLE FOR THE IDMS-TRACEABLE CREATININE METHODS. https://jasn.asnjournals.org/content/early/ASN.8799249 988 Performed By: #### R ENAL #### [facility] [address] [place] [address] Glucose [Mass/Vol] 100 mg/dL High 74 - 99 [facility] Comment on above: Performed By: #### R ENAL #### [facility] [address] [place] [address] HCO3 (Bld) [Moles/Vol] 27 mmol/L Normal 21 - 32 [facility] Comment on above: Performed By: #### R ENAL #### [facility] [address] [place] [address] Potassium [Moles/Vol] 3.8 mmol/L Normal 3.5 - 5.3 [facility] Comment on above: Performed By: #### R ENAL #### [facility] [address] [place] [address] Protein [Mass/Vol] 8.2 g/dL Normal 6.4 - 8.2 [facility] Comment on above: Performed By: #### R ENAL #### [facility] [address] [place] [address] Sodium [Moles/Vol] 140 mmol/L Normal 136 - 145 [facility] Comment on above: Performed By: #### R ENAL #### [facility] [address] [place] [address] Urea nitrogen [Mass/Vol] 5 mg/dL Low 6 - 23 [facility] Comment on above: Performed By: #### R ENAL #### [facility] [address] [place] [address] Consult - Neuro-Surgeryon Consult - Neuro-Surgery Service: [...] Updated: 07-Jun-2022 11:22 by Perez Carlisle) Normal [facility] NR CT L-SPINE WO CONTRASTon 06-07-[address] L-SPINE WO CONTRAST Patient Name: MORALES LEE STUDY: CT T-SPINE WO CONTRAST; CT L-SPINE WO CONTRAST 06/06/2022 11:03 pm INDICATION: ok, Lie Flat: Yes COMPARISON: 09/20/2021 MRI and 09/18/2021 CT ACCESSION NUMBER(S): [id number]; [id number] ORDERING CLINICIAN: CANDICE PEREZ TECHNIQUE: Axial CT [...] osseous spinal canal or neural foraminal stenosis. [id number] spinal canal and neural foraminal narrowing described [...] view. Electronically signed by: DO Andrei TOURE [facility] NR CT T-SPINE WO CONTRASTon 06-07-[address] T-SPINE WO CONTRAST Patient Name: MORALES LEE STUDY: CT T-SPINE WO CONTRAST; CT L-SPINE WO CONTRAST 06/06/2022 11:03 pm INDICATION: ok, Lie Flat: Yes COMPARISON: 09/20/2021 MRI and 09/18/2021 CT ACCESSION NUMBER(S): [id number]; [id number] ORDERING CLINICIAN: CANDICE PEREZ TECHNIQUE: Axial CT [...] osseous spinal canal or neural foraminal stenosis. Ckju-rk-phyqrxer spinal canal and neural foraminal narrowing described [...] view. Electronically signed by: DO Andrei TOURE [facility] Provider Note - ED Care Diaz cassieon [...] 21-Jun-2022 06:18 by Yony Aguirre () Normal [facility] Provider Note - ED v3on 10-0 Provider [...] - M21.37 (more content not included)... Normal [facility] Triage - EDon 06-06-2022 Triage - ED [...] BMI (kg/m2): 34.793 Calculated BSA (m2) 1.94 Meridian Coma Scale: Best Eye Response: (E4) spontaneous Best Motor Response: (M6) obeys commands Best Verbal Response: (V5) oriented Meridian Score: 15 Mask applied: yes Patient has [...] 06-Jun-2022 19:07 by Meghan Chavez (MERA) Normal [facility] CULTURE URINEon 05-10-2022 CULTURE URINE Isolate 1 [...] Trimethoprim/Sulfamethoxazo le <=20 S F Normal [facility] Comment on above: Performed By: #### U MICRO, ERUR #### [facility] [address] [place] [address] Dr. Alfredo Lizama CBC AUTO DIFFon 05-07-2022 BASO # 0.1 103/ul Normal 0.0-0.1 [facility] Comment on above: Performed By: #### U MICRO, ERUR #### [facility] [address] [place] [address] Dr. Alfredo Lizama Basophils/100 WBC (Bld) 0.5 % Normal 0.2-2.0 [facility] Comment on above: Performed By: #### U MICRO, ERUR #### [facility] [address] [place] [address] Dr. Alfredo Lizama EO # 0.4 103/ul Normal 0.0-0.7 [facility] Comment on above: Performed By: #### U MICRO, ERUR #### [facility] [address] [place] [address] Dr. Alfredo Lizama Eosinophils/100 WBC (Bld) 3.5 % Normal 0.9-7.0 [facility] Comment on above: Performed By: #### U MICRO, ERUR #### [facility] [address] [place] [address] Dr. Alfredo Lizama Erythrocyte distribution width (RBC) [Ratio] 13.2 % Normal 11.0-15.0 [facility] Comment on above: Performed By: #### U MICRO, ERUR #### [facility] [address] [place] [address] Dr. Alfredo Lizama Hematocrit (Bld) [Volume fraction] 44.0 % Normal 36.0-48.0 [facility] Comment on above: Performed By: #### U MICRO, ERUR #### [facility] [address] [address] [address] Alfredo Lizama Hemoglobin (Bld) [Mass/Vol] 14.8 g/dL Normal 12.0-16.0 [facility] Comment on above: Performed By: #### U MICRO, ERUR #### [facility] [address] [address] [address] Alfredo Lizama IG # 0.03 10e3/ul Normal 0.00-0.03 [facility] Comment on above: Performed By: #### U MICRO, ERUR #### [facility] [address] [place] [address] Dr. Alfredo Lizama IG % 0.2 % Normal 0.0-0.5 [facility] Comment on above: Performed By: #### U MICRO, ERUR #### [facility] [address] [place] [address] Dr. Alfredo Lizama LYMPH # 3.8 103/ul Normal 1.2-3.8 [facility] Comment on above: Performed By: #### U MICRO, ERUR #### [facility] [address] [place] [address] Dr. Alfredo Lizama Lymphocytes/100 WBC (Bld) 31.3 % Normal 20.5-60.0 [facility] Comment on above: Performed By: #### U MICRO, ERUR #### [facility] [address] [place] [address] Dr. Alfredo Lizama MANUAL DIFF REQ NO Normal [facility] Comment on above: Performed By: #### U MICRO, ERUR #### [facility] [address] [place] [address] Dr. Alfredo Lizama MCH (RBC) [Entitic mass] 28.8 pg Normal 26.7-34.0 [facility] Comment on above: Performed By: #### U MICRO, ERUR #### [facility] [address] [place] [address] Dr. Alfredo Lizama MCHC (RBC) [Mass/Vol] 33.6 g/dL Normal 29.9-35.2 [facility] Comment on above: Performed By: #### U MICRO, ERUR #### [facility] [address] [address] [address] Alfredo Lizama MCV (RBC) [Entitic vol] 85.8 fL Normal 81.0-99.0 [facility] Comment on above: Performed By: #### U MICRO, ERUR #### [facility] [address] [place] [address] Dr. Alfredo Lizama MONO # 0.7 103/ul Normal 0.3-0.8 [facility] Comment on above: Performed By: #### U MICRO, ERUR #### [facility] [address] [place] [address] Dr. Alfreod Lizama Monocytes/100 WBC (Bld) 5.8 % Normal 1.7-12.0 [facility] Comment on above: Performed By: #### U MICRO, ERUR #### [facility] [address] [place] [address] Dr. Alfredo Lizama NEUT # 7.1 103/ul Critically high 1.4-6.5 [facility] Comment on above: Performed By: #### U MICRO, ERUR #### [facility] [address] [place] [address] Dr. Alfredo Lizama Neutrophils/100 WBC (Bld) 58.7 % Normal 43.0-75.0 [facility] Comment on above: Performed By: #### U MICRO, ERUR #### [facility] [address] [place] [address] Dr. Alfredo Lizama Platelet mean volume (Bld) [Entitic vol] 9.6 fL Normal 9.5-13.5 [facility] Comment on above: Performed By: #### U MICRO, ERUR #### [facility] [address] [place] [address] Dr. Alfredo Lizama PLT 269 103/ul Normal 150-450 [facility] Comment on above: Performed By: #### U MICRO, ERUR #### [facility] [address] [place] [address] Dr. Alfredo Lizama RBC 5.13 106/ul Normal 4.20-5.40 [facility] Comment on above: Performed By: #### U MICRO, ERUR #### [facility] [address] [place], [place] [address] Dr. Alfredo Lizama WBC 12.2 103/ul Critically high 4.0-11.0 [facility] Comment on above: Performed By: #### U MICRO, ERUR #### [facility] [address] [place], [place] [address] ABD/PELV W CONon [...] KORIN STANLEY Date: 2022-05-07 14:00 Normal [facility] ER URINE PROFILEon 2 Bilirubin Ql (U) Negative Normal NEGATIVE [facility] Comment on above: Performed By: #### U MICRO, ERUR #### [facility] [address] [address] [address] Alfredo Lizama Clarity (U) CLOUDY Abnormal CLEAR [facility] Comment on above: Performed By: #### U MICRO, ERUR #### [facility] [address] [address] [address] Alfredo Lizama Color (U) LT. YELLOW Normal YELLOW [facility] Comment on above: Performed By: #### U MICRO, ERUR #### [facility] [address] [address] [address] Alfredo Lizama ERUAHD A micrscopic examina tion will be performed if indicated. Normal [facility] Comment on above: Performed By: #### U MICRO, ERUR #### [facility] [address] [address] [address] Alfredo Lizama Glucose Ql (U) Negative Normal NEGATIVE [facility] Comment on above: Performed By: #### U MICRO, ERUR #### [facility] [address] [address] [address] Alfredo Lizama Hemoglobin Ql (U) LARGE Abnormal NEGATIVE [facility] Comment on above: Performed By: #### U MICRO, ERUR #### [facility] [address] [place] [address] Dr. Alfredo Lizama Ketones Ql (U) Negative Normal NEGATIVE [facility] Comment on above: Performed By: #### U MICRO, ERUR #### [facility] [address] [place] [address] Dr. Alfredo Lizama LEUKOCYTES MODERATE Abnormal NEGATIVE [facility] Comment on above: Performed By: #### U MICRO, ERUR #### [facility] [address] [place] [address] Dr. Alfredo Lizama Nitrite Ql (U) Positive Abnormal NEGATIVE [facility] Comment on above: Performed By: #### U MICRO, ERUR #### [facility] [address] [place] [address] Dr. Alfredo Lizama pH (U) 8.5 [pH] Normal 5-9 [facility] Comment on above: Performed By: #### U MICRO, ERUR #### [facility] [address] [place] [address] Dr. Alfredo Lizama Protein (U) [Mass/Vol] 100 mg/dL Abnormal NEGATIVE/ TRACE [facility] Comment on above: Performed By: #### U MICRO, ERUR #### [facility] [address] [place] [address] Dr. Alfredo Lizama SPEC GRAVITY 1.015 Normal 1.005-<=1.0 25 [facility] Comment on above: Performed By: #### U MICRO, ERUR #### [facility] [address] [place] [address] Dr. Alfredo Lizama UR MICRO IND INDICATED Normal [facility] Comment on above: Performed By: #### U MICRO, ERUR #### [facility] [address] [place] [address] Dr. Alfredo Lizama Urobilinogen Qn (U) 1.0 {Tesha'U}/dL Normal 0.2 - 1. 0 [facility] Comment on above: Performed By: #### U MICRO, ERUR #### [facility] [address] [place] [address] Dr. Alfredo Lizama PROF CHEM 8 (BAS METB)on Anion gap [Moles/Vol] 12.0 mmol/L Normal [facility] Comment on above: Performed By: #### U MICRO, ERUR #### [facility] [address] [place] [address] Dr. Alfredo Lizama Calcium [Mass/Vol] 8.6 mg/dL Normal 8.5-10.1 [facility] Comment on above: Performed By: #### U MICRO, ERUR #### [facility] [address] [place] [address] Dr. Alfredo Lizama Chloride [Moles/Vol] 101 mmol/L Normal 98-107 [facility] Comment on above: Performed By: #### U MICRO, ERUR #### [facility] [address] [place] [address] Dr. Alfredo Lizama CO2 [Moles/Vol] 28.0 mmol/L Normal 21.0-32.0 [facility] Comment on above: Performed By: #### U MICRO, ERUR #### [facility] [address] [place] [address] Dr. Alfredo Lizama Creatinine [Mass/Vol] 0.77 mg/dL Normal 0.55-1.02 [facility] Comment on above: Performed By: #### U MICRO, ERUR #### [facility] [address] [place] [address] Dr. Alfredo Lizama EGFR-AF CITIZEN [place] >60 Normal >=60 [facility] Comment on above: Performed By: #### U MICRO, ERUR #### [facility] [address] [place] [address] Dr. Alfredo Lizama EGFR-NON AF CITIZEN OF [place] >60 Normal >=60 [facility] Comment on above: Performed By: #### U MICRO, ERUR #### [facility] [address] [place] [address] Dr. Alfredo Lizama Glucose [Mass/Vol] 96 mg/dL Normal 74-106 [facility] Comment on above: Performed By: #### U MICRO, ERUR #### [facility] [address] [place] [address] Dr. Alfredo Lizama Potassium [Moles/Vol] 4.0 mmol/L Normal 3.5-5.1 [facility] Comment on above: Performed By: #### U MICRO, ERUR #### [facility] [address] [place] [address] Dr. Alfredo Lizama Sodium [Moles/Vol] 137 mmol/L Normal 136-145 [facility] Comment on above: Performed By: #### U MICRO, ERUR #### [facility] [address] [place] [address] Dr. Alfredo Lizama Urea nitrogen [Mass/Vol] 7.0 mg/dL Normal 7.0-18.0 [facility] Comment on above: Performed By: #### U MICRO, ERUR #### [facility] [address] [place] [address] Dr. Alfredo Lizama Urea nitrogen/Creatinine [Mass ratio] 9.1 mg/mg Normal [facility] Comment on above: Performed By: #### U MICRO, ERUR #### [facility] [address] [place] [address] Dr. Alfredo Lizama URINE MICROSCOPIC ONLYon BACTERIA MODERATE Abnormal NONE SEEN [facility] Comment on above: Performed By: #### U MICRO, ERUR #### [facility] [address] [place] [address] Dr. Alfredo Lizama Bacteria identified Cx Nom (U) INDICATED Normal [facility] Comment on above: Performed By: #### U MICRO, ERUR #### [facility] [address] [place] [address] Dr. Alfredo Lizama CAST NONE SEEN Normal NONE SEEN [facility] Comment on above: Performed By: #### U MICRO, ERUR #### [facility] [address] [place] [address] Dr. Alfredo Lizama Crystals LM Nom (Urine sed) NONE SEEN Normal NONE SEEN [facility] Comment on above: Performed By: #### U MICRO, ERUR #### [facility] [address] [place] [address] Dr. Alfredo Lizama Epithelial cells LM Ql (Urine sed) FEW Abnormal NONE SEEN /RARE [facility] Comment on above: Performed By: #### U MICRO, ERUR #### [facility] [address] [address] [address] Alfredo Lizama MUCOUS NONE SEEN Normal NONE SEEN [facility] Comment on above: Performed By: #### U MICRO, ERUR #### [facility] [address] [address] [address] Alfredo Lizama RBC 2-5 Abnormal 0-2 [facility] Comment on above: Performed By: #### U MICRO, ERUR #### [facility] [address] [address] [address] Alfredo Lizama WBC 10-20 Abnormal NONE SEEN [facility] Comment on above: Performed By: #### U MICRO, ERUR #### [facility] [address] [address] [address] Alfredo Lizama CULTURE URINEon 04-10-2022 CULTURE [...] Trimethoprim/Sulfamethoxazo le <=20 S F Normal [facility] Comment on above: Performed By: #### U MICRO, ERUR #### [facility] [address] [place] [address] Dr. Alfredo Lizama ER URINE PROFILEon 2 Bilirubin Ql (U) Negative Normal NEGATIVE [facility] Comment on above: Performed By: #### U MICRO, ERUR #### [facility] [address] [address] [address] Alfredo Lizama Clarity (U) CLOUDY Abnormal CLEAR [facility] Comment on above: Performed By: #### U MICRO, ERUR #### [facility] [address] [place] [address] Dr. Alfredo Lizama Color (U) YELLOW Normal YELLOW [facility] Comment on above: Performed By: #### U MICRO, ERUR #### [facility] [address] [place] [address] Dr. Alfredo Lizama ERUAHD A micrscopic examina tion will be performed if indicated. Normal [facility] Comment on above: Performed By: #### U MICRO, ERUR #### [facility] [address] [place] [address] Dr. Alfredo Lizama Glucose Ql (U) Negative Normal NEGATIVE [facility] Comment on above: Performed By: #### U MICRO, ERUR #### [facility] [address] [place] [address] Dr. Alfredo Lizama Hemoglobin Ql (U) SMALL Abnormal NEGATIVE [facility] Comment on above: Performed By: #### U MICRO, ERUR #### [facility] [address] [place] [address] Dr. Alfredo Lizama Ketones Ql (U) Negative Normal NEGATIVE [facility] Comment on above: Performed By: #### U MICRO, ERUR #### [facility] [address] [place] [address] Dr. Alfredo Lizama LEUKOCYTES LARGE Abnormal NEGATIVE [facility] Comment on above: Performed By: #### U MICRO, ERUR #### [facility] [address] [place] [address] Dr. Alfredo Lizama Nitrite Ql (U) Negative Normal NEGATIVE [facility] Comment on above: Performed By: #### U MICRO, ERUR #### [facility] [address] [place] [address] Dr. Alfredo Lizama pH (U) 7.0 [pH] Normal 5-9 [facility] Comment on above: Performed By: #### U MICRO, ERUR #### [facility] [address] [place] [address] Dr. Alfredo Lizama SPEC GRAVITY <=1.005 Abnormal 1.005-<=1.0 25 [facility] Comment on above: Performed By: #### U MICRO, ERUR #### [facility] [address] [place] [address] Dr. Alfredo Lizama UA PROTEIN Negative Normal NEGATIVE/ TRACE [facility] Comment on above: Performed By: #### U MICRO, ERUR #### [facility] [address] [place] [address] Dr. Alfredo Lizama UR MICRO IND INDICATED Normal [facility] Comment on above: Performed By: #### U MICRO, ERUR #### [facility] [address] [place] [address] Dr. Alfredo Lizama Urobilinogen Qn (U) 0.2 {Tesha'U}/dL Normal 0.2 - 1. 0 [facility] Comment on above: Performed By: #### U MICRO, ERUR #### [facility] [address] [place] [address] Dr. Alfredo Lizama URINE MICROSCOPIC ONLYon BACTERIA MODERATE Abnormal NONE SEEN [facility] Comment on above: Performed By: #### U MICRO, ERUR #### [facility] [address] [place] [address] Dr. Alfredo Lizama Bacteria identified Cx Nom (U) INDICATED Normal [facility] Comment on above: Performed By: #### U MICRO, ERUR #### [facility] [address] [place] [address] Dr. Alfredo Lizama CAST NONE SEEN Normal NONE SEEN [facility] Comment on above: Performed By: #### U MICRO, ERUR #### [facility] [address] [address] [address] Alfredo Lizama Crystals LM Nom (Urine sed) NONE SEEN Normal NONE SEEN [facility] Comment on above: Performed By: #### U MICRO, ERUR #### [facility] [address] [address] [address] Alfredo Lizama Epithelial cells LM Ql (Urine sed) FEW Abnormal NONE SEEN /RARE [facility] Comment on above: Performed By: #### U MICRO, ERUR #### [facility] [address] [address] [address] Alfredo Lizama MUCOUS NONE SEEN Normal NONE SEEN [facility] Comment on above: Performed By: #### U MICRO, ERUR #### [facility] [address] [address] [address] Alfredo Lizama RBC 5-10 Abnormal 0-2 [facility] Comment on above: Performed By: #### U MICRO, ERUR #### [facility] [address] [address] [address] Alfredo Lizama WBC (U) [#/Vol] /uL Abnormal NONE SEEN [facility] Comment on above: Performed By: #### U MICRO, ERUR #### [facility] [address] [address] [address] Alfredo Lizama Basic Metabolic Panelon 11-03 Calcium [Mass/Vol] 8.9 mg/dL Normal 8.2-10.2 [facility] Comment on above: Performed By: #### C BC, CMP, PAB #### [facility] [address] [place] [address] [place] Chloride [Moles/Vol] 101 mmol/L Normal 95-114 [facility] Comment on above: Performed By: #### C BC, CMP, PAB #### [facility] [address] [place] [id number] [place] CO2 [Moles/Vol] 29.0 mmol/L Normal 22.0-30.0 [facility] Comment on above: Performed By: #### C BC, CMP, PAB #### [facility] [address] Creatinine [Mass/Vol] 0.48 mg/dL Normal 0.44-1.03 [facility] Comment on above: Performed By: #### C DARIUS PATEL, PAB #### [facility] [address] Creatinine Clr Calc Pharmacy 150.29 [facility] Comment on above: Result Comment: PERF ORMED BY: [place] [address] PATHOLOGIST INSURANCE ADJUSTOR HUY COX M.D. Performed By: #### C DARIUS PATEL, PAB #### [address] Estimated GFR ( Juliann > 60 [facility] Comment on above: Result Comment: GFR estimated reference range: According to KDOQI guidelines, <60 ml/min/1.73m2 is sufficient to diagnose a patient with chronic kidney disease. Performed By: #### C DARIUS PATEL, PAB #### [address] Estimated GFR (Non- Am > 60 [facility] Comment on above: Performed By: #### C DARIUS PATEL, PAB #### [address] Glucose [Mass/Vol] 111 mg/dL High 70-100 [facility] Comment on above: Result Comment: [facility] Glucose Reference Range is dependent on time and content of last meal. Glucose of more than 200 mg/dL in a nonstressed, ambulatory subject supports the diagnosis of Diabetes Mellitus. ADA recommended reference range Performed By: #### C JORGE CMP, PAB #### [address] Potassium [Moles/Vol] 3.6 mmol/L Normal 3.5-5.1 [facility] Comment on above: Performed By: #### C BC CMP, PAB #### [facility] [address] [place] [address] [place] Sodium [Moles/Vol] 138 mmol/L Normal 136-146 [facility] Comment on above: Performed By: #### C BC, CMP, PAB #### [facility] [address] Urea nitrogen [Mass/Vol] 10 mg/dL Normal 9-23 [facility] Comment on above: Performed By: #### C BC, CMP, PAB #### [facility] [address] Complete Blood Count Auto Di ffon 11-19-2021 Basophils (Bld) [#/Vol] 0.1 10*3/uL Normal 0.0-0.2 [facility] Comment on above: Result Comment: PERF ORMED BY: [place] [address] PATHOLOGIST INSURANCE ADJUSTOR HUY COX M.D. Performed By: #### C BC, CMP, PAB #### [address] Basophils/100 WBC (Bld) 0.8 % Normal . [facility] Comment on above: Performed By: #### C BC, CMP, PAB #### [facility] [address] [place] [address] [place] Eosinophils (Bld) [#/Vol] 0.4 10*3/uL Normal 0.0-0.45 [facility] Comment on above: Performed By: #### C BC, CMP, PAB #### [place] [address] [place] Eosinophils/100 WBC (Bld) 5.8 % Normal . [facility] Comment on above: Performed By: #### C BC, CMP, PAB #### [address] Erythrocyte distribution width (RBC) [Ratio] 14.3 % Normal 11.9-15.3 [facility] Comment on above: Performed By: #### C BC, CMP, PAB #### [address] Hematocrit (Bld) [Volume fraction] 36.0 % Normal 34.0-46.4 [facility] Comment on above: Performed By: #### C BC, CMP, PAB #### [address] Hemoglobin (Bld) [Mass/Vol] 11.9 g/dL Normal 11.8-15.4 [facility] Comment on above: Performed By: #### C BC, CMP, PAB #### [address] Lymphocytes (Bld) [#/Vol] 2.7 10*3/uL Normal 1.00-4.8 [facility] Comment on above: Performed By: #### C BC, CMP, PAB #### [address] Lymphocytes/100 WBC (Bld) 37.6 % Normal . [facility] Comment on above: Performed By: #### C BC, CMP, PAB #### [address] MCH (RBC) [Entitic mass] 28.1 pg Normal 24.7-34.3 [facility] Comment on above: Performed By: #### C BC, CMP, PAB #### [address] MCV (RBC) [Entitic vol] 85.3 fL Normal 80-100 [facility] Comment on above: Performed By: #### C BC, CMP, PAB #### [address] Mean Corpuscular HGB Conc 32.9 g/dL Normal 32.0-35.0 [facility] Comment on above: Performed By: #### C BC, CMP, PAB #### [place] [address] [place] Monocytes (Bld) [#/Vol] 0.4 10*3/uL Normal 0.0-0.8 [facility] Comment on above: Performed By: #### C BC, CMP, PAB #### [place] [address] [place] Monocytes/100 WBC (Bld) 5.2 % Normal . [facility] Comment on above: Performed By: #### C BC, CMP, PAB #### [facility] [address] Neutrophils (Bld) [#/Vol] 3.7 10*3/uL Normal 1.8-7.7 [facility] Comment on above: Performed By: #### C BC, CMP, PAB #### [address] Neutrophils/100 WBC (Bld) 50.6 % Normal . [facility] Comment on above: Performed By: #### C BC, CMP, PAB #### [address] Nucleated RBC/100 WBC (Bld) [Ratio] 0.0 % Normal 0-0.5 [facility] Comment on above: Performed By: #### C BC, CMP, PAB #### [address] Platelet mean volume (Bld) [Entitic vol] 7.6 fL Normal 6.3-10.7 [facility] Comment on above: Performed By: #### C BC, CMP, PAB #### [place] [address] [place] Platelets (Bld) [#/Vol] 252 10*3/uL Normal 150-450 [facility] Comment on above: Performed By: #### C BC, CMP, PAB #### [place] [address] [place] RBC (Bld) [#/Vol] 4.22 10*6/uL Normal 3.60-5.00 [facility] Comment on above: Performed By: #### C BC, CMP, PAB #### [place] [address] [place] WBC (Bld) [#/Vol] 7.2 10*3/uL Normal 4.5-11.0 [facility] Comment on above: Performed By: #### C BC, CMP, PAB #### [place] [id number] [facility] Ammoniaon 11-11-2021 Ammonia (P) [Moles/Vol] 26 umol/L Normal 11-35 [facility] Comment on above: Result Comment: PERF ORMED BY: [place] [address] PATHOLOGIST INSURANCE ADJUSTOR HUY COX M.D. Performed By: #### C BC, CMP, PAB #### [address] Hepatic Panelon 11-11-2021 Albumin [Mass/Vol] 3.0 g/dL Low 3.2-5.5 [facility] Comment on above: Performed By: #### C BC, CMP, PAB #### [address] Albumin/Globulin [Mass ratio] 1.0 {ratio} Normal [facility] Comment on above: Performed By: #### C BC, CMP, PAB #### [address] ALP [Catalytic activity/Vol] 187 U/L High 32-92 [facility] Comment on above: Result Comment: PERF ORMED BY: [place] [address] PATHOLOGIST INSURANCE ADJUSTOR HUY COX M.D. Performed By: #### C BC, CMP, PAB #### [address] ALT [Catalytic activity/Vol] 54 U/L Normal 10-60 [facility] Comment on above: Performed By: #### C BC, CMP, PAB #### [place] [address] [place] AST [Catalytic activity/Vol] 39 U/L Normal 10-42 [facility] Comment on above: Performed By: #### C BC, CMP, PAB #### [address] Bilirubin [Mass/Vol] 0.3 mg/dL Normal 0.3-1.2 [facility] Comment on above: Performed By: #### C BC, CMP, PAB #### [facility] [address] [place] [address] Bilirubin,Indirect Not performed Normal [facility] Comment on above: Performed By: #### C BC, CMP, PAB #### [facility] [address] [place] [address] Bilirubin.indirect [Mass/Vol] mg/dL Normal 0.0-0.4 [facility] Comment on above: Performed By: #### C BC, CMP, PAB #### [facility] [address] [place] [address] Globulin (S) [Mass/Vol] 3.0 g/dL Normal [facility] Comment on above: Performed By: #### C BC, CMP, PAB #### [address] Protein [Mass/Vol] 6.0 g/dL Low 6.1-7.9 [facility] Comment on above: Performed By: #### C BC, CMP, PAB #### [address] Hepatitis Acute Panelon 03-0 HBsAg Screen Negative Normal Negative [facility] Comment on above: Performed By: #### C BC, CMP, PAB #### [facility] [address] [place] [address] Hepatitis A Antibody IgM Negative Normal Negative [facility] Comment on above: Performed By: #### C BC, CMP, PAB #### [facility] [address] [place] [address] Hepatitis B Core Antibody IgM Negative Normal Negative [facility] Comment on above: Performed By: #### C BC, CMP, PAB #### [facility] [address] [place] [address] Hepatitis C Virus Antibody 0.2 Normal 0.0-0.9 [facility] Comment on above: Performed By: #### C BC, CMP, PAB #### [facility] [address] [place] [address] Interpretation Hepatitis C Normal . [facility] Comment on above: Result Comment: Dov tijaqueline Not infected with HCV, unless recent infection is suspected or other evidence exists to indicate HCV infection. Performed at: - [facility] [address] [id number] Medical Microbiologist: Pedro Luis José PhD, Phone: [phone] PERFORMED BY: [place] [address] PATHOLOGIST INSURANCE ADJUSTOR HUY COX M.D. Performed By: #### C BC, CMP, PAB #### [address] US liveron 11-11-2021 liver [facility] [place] [address] [place] [address] Ultrasound Report Signed Patient: Morales Lee MR#: [id number] : 1975 Acct:[id number] Age/Sex: 46 / F ADM Date: 10/29/21 Loc: Room: 3V2659-7 Type: ADM IN Attending Dr: Richard Acevedo [...] Alexandru Pond M.D.11/11/2021 10:23 AM Dictation Location: [place] [address] Tech: Ermelinda Diaz Transcribed By: CORTNEY 11/11/21 1023 Dictated By: Alexandru Pond DO 11/11/21 1018 Signed By: 11/11/21 1023 Normal [facility] Complete Blood Count Auto Di ffon 11-10-2021 Basophils (Bld) [#/Vol] 0.1 10*3/uL Normal 0.0-0.2 [facility] Comment on above: Result Comment: PERF ORMED BY: [place] [address] PATHOLOGIST INSURANCE ADJUSTOR HUY COX M.D. Performed By: #### C BC #### [address] Basophils/100 WBC (Bld) 1.2 % Normal . [facility] Comment on above: Performed By: #### C BC #### [address] Eosinophils (Bld) [#/Vol] 0.3 10*3/uL Normal 0.0-0.45 [facility] Comment on above: Performed By: #### C BC #### [address] Eosinophils/100 WBC (Bld) 5.9 % Normal . [facility] Comment on above: Performed By: #### C BC #### [address] Erythrocyte distribution width (RBC) [Ratio] 14.2 % Normal 11.9-15.3 [facility] Comment on above: Performed By: #### C BC #### [address] Hematocrit (Bld) [Volume fraction] 37.1 % Normal 34.0-46.4 [facility] Comment on above: Performed By: #### C BC #### [address] Hemoglobin (Bld) [Mass/Vol] 12.3 g/dL Normal 11.8-15.4 [facility] Comment on above: Performed By: #### C BC #### [facility] [address] Lymphocytes (Bld) [#/Vol] 2.0 10*3/uL Normal 1.00-4.8 [facility] Comment on above: Performed By: #### C BC #### [address] Lymphocytes/100 WBC (Bld) 36.5 % Normal . [facility] Comment on above: Performed By: #### C BC #### [address] MCH (RBC) [Entitic mass] 28.6 pg Normal 24.7-34.3 [facility] Comment on above: Performed By: #### C BC #### [address] MCV (RBC) [Entitic vol] 86.5 fL Normal 80-100 [facility] Comment on above: Performed By: #### C BC #### [address] Mean Corpuscular HGB Conc 33.1 g/dL Normal 32.0-35.0 [facility] Comment on above: Performed By: #### C BC #### [address] Monocytes (Bld) [#/Vol] 0.3 10*3/uL Normal 0.0-0.8 [facility] Comment on above: Performed By: #### C BC #### [place] [address] [place] Monocytes/100 WBC (Bld) 5.3 % Normal . [facility] Comment on above: Performed By: #### C BC #### [address] Neutrophils (Bld) [#/Vol] 2.8 10*3/uL Normal 1.8-7.7 [facility] Comment on above: Performed By: #### C BC #### [place] [address] Neutrophils/100 WBC (Bld) 51.1 % Normal . [facility] Comment on above: Performed By: #### C BC #### [address] Nucleated RBC/100 WBC (Bld) [Ratio] 0.1 % Normal 0-0.5 [facility] Comment on above: Performed By: #### C BC #### [address] Platelet mean volume (Bld) [Entitic vol] 7.8 fL Normal 6.3-10.7 [facility] Comment on above: Performed By: #### C BC #### [address] Platelets (Bld) [#/Vol] 214 10*3/uL Normal 150-450 [facility] Comment on above: Performed By: #### C BC #### [address] RBC (Bld) [#/Vol] 4.28 10*6/uL Normal 3.60-5.00 [facility] Comment on above: Performed By: #### C BC #### [address] WBC (Bld) [#/Vol] 5.4 10*3/uL Normal 4.5-11.0 [facility] Comment on above: Performed By: #### C BC #### [address] Comprehensive Metabolic Pane shree 11-10-2021 Albumin [Mass/Vol] 2.9 g/dL Low 3.2-5.5 [facility] Comment on above: Performed By: #### C BC, CMP, PAB #### [address] Albumin/Globulin [Mass ratio] 0.9 {ratio} Normal [facility] Comment on above: Performed By: #### C BC, CMP, PAB #### [address] [place] [address] [facility] ALP [Catalytic activity/Vol] 201 U/L High 32-92 [facility] Comment on above: Performed By: #### C BC CMP, PAB #### [facility] [address] ALT [Catalytic activity/Vol] 67 U/L High 10-60 [facility] Comment on above: Performed By: #### C BC, CMP, PAB #### [facility] [address] AST [Catalytic activity/Vol] 66 U/L High 10-42 [facility] Comment on above: Performed By: #### C BC CMP, PAB #### [facility] [address] Bilirubin [Mass/Vol] 0.4 mg/dL Normal 0.3-1.2 [facility] Comment on above: Performed By: #### C BC, CMP, PAB #### [address] Calcium [Mass/Vol] 8.7 mg/dL Normal 8.2-10.2 [facility] Comment on above: Performed By: #### C BC, CMP, PAB #### [address] Chloride [Moles/Vol] 100 mmol/L Normal 95-114 [facility] Comment on above: Performed By: #### C BC, CMP, PAB #### [address] CO2 [Moles/Vol] 26.4 mmol/L Normal 22.0-30.0 [facility] Comment on above: Performed By: #### C BC, CMP, PAB #### [place] [address] [place] Creatinine [Mass/Vol] 0.50 mg/dL Normal 0.44-1.03 [facility] Comment on above: Performed By: #### C BC, CMP, PAB #### [place] [address] [place] Creatinine Clr Calc Pharmacy 142.11 [facility] Comment on above: Result Comment: PERF ORMED BY: [place] [address] PATHOLOGIST INSURANCE ADJUSTOR HUY COX M.D. Performed By: #### C BC, CMP, PAB #### [address] Estimated GFR ( Juliann > 60 [facility] Comment on above: Result Comment: GFR estimated reference range: According to KDOQI guidelines, <60 ml/min/1.73m2 is sufficient to diagnose a patient with chronic kidney disease. Performed By: #### C BC, CMP, PAB #### [address] Estimated GFR (Non- Am > 60 [facility] Comment on above: Performed By: #### C BC, CMP, PAB #### [address] Globulin (S) [Mass/Vol] 3.1 g/dL [facility] Comment on above: Performed By: #### C BC, CMP, PAB #### [address] Glucose [Mass/Vol] 110 mg/dL High 70-100 [facility] Comment on above: Result Comment: [facility] Glucose Reference Range is dependent on time and content of last meal. Glucose of more than 200 mg/dL in a nonstressed, ambulatory subject supports the diagnosis of Diabetes Mellitus. ADA recommended reference range Performed By: #### C BC, CMP, PAB #### [address] Potassium [Moles/Vol] 4.0 mmol/L Normal 3.5-5.1 [facility] Comment on above: Performed By: #### C BC, CMP, PAB #### [address] Protein [Mass/Vol] 6.0 g/dL Low 6.1-7.9 [facility] Comment on above: Performed By: #### C BC, CMP, PAB #### [facility] [address] [place] [id number] [place] Sodium [Moles/Vol] 136 mmol/L Normal 136-146 [facility] Comment on above: Performed By: #### C BC, CMP, PAB #### [facility] [address] [place] [id number] [place] Urea nitrogen [Mass/Vol] 8 mg/dL Low 9-23 [facility] Comment on above: Performed By: #### C BC, CMP, PAB #### [facility] [address] [place] [address] [place] Dipstick and Microscopicon 0 11-10-2021 Appearance (U) Turbid Critically abnormal Clear [facility] Comment on above: Order Comment: Name Collection Type:: Alvares Catheter Performed By: #### C BC, CMP, PAB #### [facility] [address] [place] [address] [place] Bacteria,Urine 3+ High None Seen [facility] Comment on above: Order Comment: Name Collection Type:: Alvares Catheter Performed By: #### C BC, CMP, PAB #### [facility] [address] [place] [address] [place] Bilirubin,Urine Negative Normal Negative [facility] Comment on above: Order Comment: Name Collection Type:: Alvares Catheter Performed By: #### C BC, CMP, PAB #### [facility] [address] [place] [id number] [place] Color (U) Yellow Normal Yellow [facility] Comment on above: Order Comment: Name Collection Type:: Alvares Catheter Performed By: #### C BC, CMP, PAB #### [facility] [address] [place] [id number] [place] Glucose Ql (U) Normal Normal Normal [facility] Comment on above: Order Comment: Name Collection Type:: Alvares Catheter Performed By: #### C BC, CMP, PAB #### [facility] [address] [place] [id number] [place] Hyaline Casts,Urine None Seen Normal 0-1 [facility] Comment on above: Order Comment: Name Collection Type:: Alvares Catheter Performed By: #### C BC, CMP, PAB #### [facility] [address] [place] [address] [place] Ketones Ql (U) Negative Normal Negative [facility] Comment on above: Order Comment: Name Collection Type:: Alvares Catheter Performed By: #### C BC, CMP, PAB #### [facility] [address] [place] [address] Leukocyte esterase Test strip Ql (U) 3+ High Negative [facility] Comment on above: Order Comment: Name Collection Type:: Alvares Catheter Performed By: #### C BC, CMP, PAB #### [place] [address] [place] Nitrite,Urine Positive High Negative [facility] Comment on above: Order Comment: Name Collection Type:: Alvares Catheter Performed By: #### C BC, CMP, PAB #### [address] Occult Blood,Urine 2+ High Negative [facility] Comment on above: Order Comment: Name Collection Type:: Alvares Catheter Result Comment: PERF ORMED BY: [place] [address] PATHOLOGIST INSURANCE ADJUSTOR HUY COX M.D. Performed By: #### C BC, CMP, PAB #### [facility] [address] [place] [address] Other Casts,Urine None Seen Normal None Seen [facility] Comment on above: Order Comment: Name Collection Type:: Alvares Catheter Result Comment: PERF ORMED BY: [place] [address] PATHOLOGIST INSURANCE ADJUSTOR HUY COX M.D. Performed By: #### C BC, CMP, PAB #### [facility] [address] [place] [address] [place] pH (U) 8.5 [pH] Normal 5.0-9.0 [facility] Comment on above: Order Comment: Name Collection Type:: Alvares Catheter Performed By: #### C BC, CMP, PAB #### [facility] [address] [place] [address] [place] Protein,Urine Negative Normal Negative [facility] Comment on above: Order Comment: Name Collection Type:: Alvares Catheter Performed By: #### C BC, CMP, PAB #### [address] RBC,Urine 1-2 Normal 0-4 [facility] Comment on above: Order Comment: Name Collection Type:: Alvares Catheter Performed By: #### C BC, CMP, PAB #### [address] Specificy [place],Urine 1.006 Normal 1.001-1.030 [facility] Comment on above: Order Comment: Name Collection Type:: Alvares Catheter Performed By: #### C BC, CMP, PAB #### [address] Squamous Epithelial Cell,Urine 3-4 High 0-2 [facility] Comment on above: Order Comment: Name Collection Type:: Alvares Catheter Performed By: #### C BC, CMP, PAB #### [address] Triple Phosphate Crystal,Urine 2+ Normal [facility] Comment on above: Order Comment: Name Collection Type:: Alvares Catheter Performed By: #### C BC, CMP, PAB #### [address] Urobilinogen,Urine Normal Normal Normal [facility] Comment on above: Order Comment: Name Collection Type:: Alvares Catheter Performed By: #### C BC, CMP, PAB #### [place] [address] [place] WBC,Urine 20-49 High 0-4 [facility] Comment on above: Order Comment: Name Collection Type:: Alvares Catheter Performed By: #### C BC, CMP, PAB #### [place] [address] [place] Urine Cultureon 11-10-2021 Bacteria identified Cx Nom (U) ORGANISM: Providencia rettgeri (O:PRORET) [place] Count >100,000 Aerobic JOSE Charge (NUC86) SUSCEPTIBILITY [...] EXTENDED SPECTRUM BETA-LACTAMASE TFG = THYMIDINE-DEPENDENT STRAIN RAETHA = BETA-LACTAMASE POSITIVE IB = INDUCIBLE BETA-LACTAMASE. APPEARS IN PLACE OF 'S' WITH SPECIES KNOWN TO POSSESS INDUCIBLE BETA-LACTAMASES. POTENTIALLY THEY MAY BECOME RESISTANT TO ALL B-LACTAM DRUGS. PERFORMED BY: [place] [address] PATHOLOGIST INSURANCE ADJUSTOR HUY COX M.D. [facility] Comment on above: Performed By: #### C BC, CMP, PAB #### [facility] [address] [place] [address] Basic Metabolic Panelon 03-0 Calcium [Mass/Vol] 8.7 mg/dL Normal 8.2-10.2 [facility] Comment on above: Performed By: #### B MP, CBC #### [address] Chloride [Moles/Vol] 102 mmol/L Normal 95-114 [facility] Comment on above: Performed By: #### B MP, CBC #### [place] [address] [place] CO2 [Moles/Vol] 25.5 mmol/L Normal 22.0-30.0 [facility] Comment on above: Performed By: #### B MP, CBC #### [address] Creatinine [Mass/Vol] 0.71 mg/dL Normal 0.44-1.03 [facility] Comment on above: Performed By: #### B MP, CBC #### [address] Creatinine Clr Calc Pharmacy 100.08 [facility] Comment on above: Result Comment: PERF ORMED BY: [place] [address] PATHOLOGIST INSURANCE ADJUSTOR HUY COX M.D. Performed By: #### B MP, CBC #### [address] Estimated GFR ( Juliann > 60 [facility] Comment on above: Result Comment: GFR estimated reference range: According to KDOQI guidelines, <60 ml/min/1.73m2 is sufficient to diagnose a patient with chronic kidney disease. Performed By: #### B MP, CBC #### [address] Estimated GFR (Non- Am > 60 [facility] Comment on above: Performed By: #### B MP, CBC #### [address] Glucose [Mass/Vol] 104 mg/dL High 70-100 [facility] Comment on above: Result Comment: [place] om Glucose Reference Range is dependent on time and content of last meal. Glucose of more than 200 mg/dL in a nonstressed, ambulatory subject supports the diagnosis of Diabetes Mellitus. ADA recommended reference range Performed By: #### B MP, CBC #### [address] Potassium [Moles/Vol] 4.1 mmol/L Normal 3.5-5.1 [facility] Comment on above: Performed By: #### B MP, CBC #### [address] Sodium [Moles/Vol] 137 mmol/L Normal 136-146 [facility] Comment on above: Performed By: #### B MP, CBC #### [facility] [address] Urea nitrogen [Mass/Vol] 10 mg/dL Normal 9-23 [facility] Comment on above: Performed By: #### B MP, CBC #### [address] Complete Blood Count Auto Di ffon 11-06-2021 Basophils (Bld) [#/Vol] 0.1 10*3/uL Normal 0.0-0.2 [facility] Comment on above: Result Comment: PERF ORMED BY: [place] [address] PATHOLOGIST INSURANCE ADJUSTOR HUY COX M.D. Performed By: #### B MP, CBC #### [address] Basophils/100 WBC (Bld) 0.8 % Normal . [facility] Comment on above: Performed By: #### B MP, CBC #### [address] Eosinophils (Bld) [#/Vol] 0.4 10*3/uL Normal 0.0-0.45 [facility] Comment on above: Performed By: #### B MP, CBC #### [address] Eosinophils/100 WBC (Bld) 5.5 % Normal . [facility] Comment on above: Performed By: #### B MP, CBC #### [address] Erythrocyte distribution width (RBC) [Ratio] 14.2 % Normal 11.9-15.3 [facility] Comment on above: Performed By: #### B MP, CBC #### [place] [address] [place] Hematocrit (Bld) [Volume fraction] 36.0 % Normal 34.0-46.4 [facility] Comment on above: Performed By: #### B MP, CBC #### [address] Hemoglobin (Bld) [Mass/Vol] 12.0 g/dL Normal 11.8-15.4 [facility] Comment on above: Performed By: #### B MP, CBC #### [address] Lymphocytes (Bld) [#/Vol] 2.4 10*3/uL Normal 1.00-4.8 [facility] Comment on above: Performed By: #### B MP, CBC #### [address] Lymphocytes/100 WBC (Bld) 35.2 % Normal . [facility] Comment on above: Performed By: #### B MP, CBC #### [address] MCH (RBC) [Entitic mass] 28.9 pg Normal 24.7-34.3 [facility] Comment on above: Performed By: #### B MP, CBC #### [address] MCV (RBC) [Entitic vol] 86.4 fL Normal 80-100 [facility] Comment on above: Performed By: #### B MP, CBC #### [address] Mean Corpuscular HGB Conc 33.4 g/dL Normal 32.0-35.0 [facility] Comment on above: Performed By: #### B MP, CBC #### [address] Monocytes (Bld) [#/Vol] 0.3 10*3/uL Normal 0.0-0.8 [facility] Comment on above: Performed By: #### B MP, CBC #### [address] Monocytes/100 WBC (Bld) 4.8 % Normal . [facility] Comment on above: Performed By: #### B MP, CBC #### [facility] [address] Neutrophils (Bld) [#/Vol] 3.7 10*3/uL Normal 1.8-7.7 [facility] Comment on above: Performed By: #### B MP, CBC #### [facility] [address] Neutrophils/100 WBC (Bld) 53.7 % Normal . [facility] Comment on above: Performed By: #### B MP, CBC #### [facility] [address] Nucleated RBC/100 WBC (Bld) [Ratio] 0.0 % Normal 0-0.5 [facility] Comment on above: Performed By: #### B MP, CBC #### [facility] [address] Platelet mean volume (Bld) [Entitic vol] 8.2 fL Normal 6.3-10.7 [facility] Comment on above: Performed By: #### B MP, CBC #### [facility] [address] [place] [address] [place] Platelets (Bld) [#/Vol] 235 10*3/uL Normal 150-450 [facility] Comment on above: Performed By: #### B MP, CBC #### [facility] [address] [place] [address] [place] RBC (Bld) [#/Vol] 4.17 10*6/uL Normal 3.60-5.00 [facility] Comment on above: Performed By: #### B MP, CBC #### [facility] [address] [place] [address] [place] WBC (Bld) [#/Vol] 6.9 10*3/uL Normal 4.5-11.0 [facility] Comment on above: Performed By: #### B MP, CBC #### [facility] [address] US venous duplex LE BIon US venous duplex LE BI [facility] [place] [address] [place] [address] Ultrasound Report Signed Patient: Morales Lee MR#: [id number] : 1975 Acct:[id number] Age/Sex: 46 / F ADM Date: 10/29/21 Loc: Room: [address] [place] [address] Type: ADM IN Attending Dr: Richard Acevedo MD Ordering Provider: Rihcard Acevedo MD Date of Service: 11/03/21 US/US [...] Carlos Neal MD11/04/2021 11:36 AM Dictation Location: [place] [address] Tech: Natalia Rivas Transcribed By: [facility] 11/04/21 1136 Dictated By: Juan Carlos Neal MD 11/04/21 1135 Signed By: 11/04/21 1136 Normal [facility] Complete Blood Count Auto Di ffon 10-30-2021 Basophils (Bld) [#/Vol] 0.0 10*3/uL Normal 0.0-0.2 [facility] Comment on above: Result Comment: PERF ORMED BY: [place] [address] PATHOLOGIST INSURANCE ADJUSTOR HUY COX M.D. Performed By: #### C BC, CMP, PAB #### [address] Basophils/100 WBC (Bld) 0.6 % Normal . [facility] Comment on above: Performed By: #### C BC, CMP, PAB #### [facility] [address] [place] [address] [place] Eosinophils (Bld) [#/Vol] 0.4 10*3/uL Normal 0.0-0.45 [facility] Comment on above: Performed By: #### C BC, CMP, PAB #### [facility] [address] [place] [address] [place] Eosinophils/100 WBC (Bld) 4.9 % Normal . [facility] Comment on above: Performed By: #### C BC, CMP, PAB #### [facility] [address] Erythrocyte distribution width (RBC) [Ratio] 14.3 % Normal 11.9-15.3 [facility] Comment on above: Performed By: #### C BC, CMP, PAB #### [facility] [address] Hematocrit (Bld) [Volume fraction] 36.1 % Normal 34.0-46.4 [facility] Comment on above: Performed By: #### C BC, CMP, PAB #### [facility] [address] Hemoglobin (Bld) [Mass/Vol] 12.1 g/dL Normal 11.8-15.4 [facility] Comment on above: Performed By: #### C BC, CMP, PAB #### [facility] [address] [place] [address] [place] Lymphocytes (Bld) [#/Vol] 2.8 10*3/uL Normal 1.00-4.8 [facility] Comment on above: Performed By: #### C BC, CMP, PAB #### [facility] [address] [place] [address] [place] Lymphocytes/100 WBC (Bld) 39.0 % Normal . [facility] Comment on above: Performed By: #### C BC, CMP, PAB #### [facility] [address] [place] [address] [place] MCH (RBC) [Entitic mass] 28.7 pg Normal 24.7-34.3 [facility] Comment on above: Performed By: #### C BC, CMP, PAB #### [facility] [address] MCV (RBC) [Entitic vol] 85.7 fL Normal 80-100 [facility] Comment on above: Performed By: #### C BC, CMP, PAB #### [facility] [address] Mean Corpuscular HGB Conc 33.4 g/dL Normal 32.0-35.0 [facility] Comment on above: Performed By: #### C BC, CMP, PAB #### [facility] [address] Monocytes (Bld) [#/Vol] 0.4 10*3/uL Normal 0.0-0.8 [facility] Comment on above: Performed By: #### C BC, CMP, PAB #### [facility] [address] Monocytes/100 WBC (Bld) 5.2 % Normal . [facility] Comment on above: Performed By: #### C BC, CMP, PAB #### [facility] [address] Neutrophils (Bld) [#/Vol] 3.6 10*3/uL Normal 1.8-7.7 [facility] Comment on above: Performed By: #### C BC, CMP, PAB #### [facility] [address] Neutrophils/100 WBC (Bld) 50.3 % Normal . [facility] Comment on above: Performed By: #### C BC, CMP, PAB #### [facility] [address] [place] [address] [place] Nucleated RBC/100 WBC (Bld) [Ratio] 0.0 % Normal 0-0.5 [facility] Comment on above: Performed By: #### C BC, CMP, PAB #### [facility] [address] Platelet mean volume (Bld) [Entitic vol] 8.1 fL Normal 6.3-10.7 [facility] Comment on above: Performed By: #### C BC, CMP, PAB #### [facility] [address] [place] [address] Platelets (Bld) [#/Vol] 261 10*3/uL Normal 150-450 [facility] Comment on above: Performed By: #### C BC, CMP, PAB #### [address] RBC (Bld) [#/Vol] 4.22 10*6/uL Normal 3.60-5.00 [facility] Comment on above: Performed By: #### C BC, CMP, PAB #### [address] WBC (Bld) [#/Vol] 7.2 10*3/uL Normal 4.5-11.0 [facility] Comment on above: Performed By: #### C BC, CMP, PAB #### [address] Comprehensive Metabolic Pane shree 10-30-2021 Albumin [Mass/Vol] 2.8 g/dL Low 3.2-5.5 [facility] Comment on above: Performed By: #### C BC, CMP, PAB #### [address] Albumin/Globulin [Mass ratio] 1.0 {ratio} Normal [facility] Comment on above: Performed By: #### C BC, CMP, PAB #### [address] ALP [Catalytic activity/Vol] 116 U/L High 32-92 [facility] Comment on above: Performed By: #### C BC, CMP, PAB #### [address] ALT [Catalytic activity/Vol] 20 U/L Normal 10-60 [facility] Comment on above: Performed By: #### C BC, CMP, PAB #### [address] [place] [address] [place] AST [Catalytic activity/Vol] 22 U/L Normal 10-42 [facility] Comment on above: Performed By: #### C BC CMP, PAB #### [facility] [address] Bilirubin [Mass/Vol] 0.5 mg/dL Normal 0.3-1.2 [facility] Comment on above: Performed By: #### C BC CMP, PAB #### [facility] [address] Calcium [Mass/Vol] 8.7 mg/dL Normal 8.2-10.2 [facility] Comment on above: Performed By: #### C JORGE CMP, PAB #### [address] Chloride [Moles/Vol] 105 mmol/L Normal 95-114 [facility] Comment on above: Performed By: #### C BC CMP, PAB #### [address] CO2 [Moles/Vol] 26.8 mmol/L Normal 22.0-30.0 [facility] Comment on above: Performed By: #### C JORGE CMP, PAB #### [address] Creatinine [Mass/Vol] 0.51 mg/dL Normal 0.44-1.03 [facility] Comment on above: Performed By: #### C BC, CMP, PAB #### [place] [address] [place] Creatinine Clr Calc Pharmacy 123.73 [facility] Comment on above: Performed By: #### C BC CMP, PAB #### [address] Estimated GFR ( Juliann > 60 [facility] Comment on above: Result Comment: GFR estimated reference range: According to KDOQI guidelines, <60 ml/min/1.73m2 is sufficient to diagnose a patient with chronic kidney disease. Performed By: #### C BC, CMP, PAB #### [facility] [address] Estimated GFR (Non- Am > 60 Normal [facility] Comment on above: Performed By: #### C DARIUS PATEL, PAB #### [facility] [address] Globulin (S) [Mass/Vol] 2.8 g/dL Normal [facility] Comment on above: Performed By: #### C DARIUS PATEL, PAB #### [address] Glucose [Mass/Vol] 115 mg/dL High 70-100 [facility] Comment on above: Result Comment: [facility] Glucose Reference Range is dependent on time and content of last meal. Glucose of more than 200 mg/dL in a nonstressed, ambulatory subject supports the diagnosis of Diabetes Mellitus. ADA recommended reference range Performed By: #### C DARIUS PATEL, PAB #### [address] Potassium [Moles/Vol] 3.7 mmol/L Normal 3.5-5.1 [facility] Comment on above: Performed By: #### C DARIUS PATEL, PAB #### [address] Protein [Mass/Vol] 5.6 g/dL Low 6.1-7.9 [facility] Comment on above: Performed By: #### C DARIUS PATEL, PAB #### [address] Sodium [Moles/Vol] 140 mmol/L Normal 136-146 [facility] Comment on above: Performed By: #### C JORGE CMP, PAB #### [address] Urea nitrogen [Mass/Vol] 7 mg/dL Low 9-23 [facility] Comment on above: Performed By: #### C BC CMP, PAB #### [place] [address] [place] Dipstick and Microscopicon 0 2-25-2022 Appearance (U) Clear Normal Clear [facility] Comment on above: Order Comment: Name Collection Type:: Voided Performed By: #### A DDONUAPLUS, CUU #### [facility] [address] [place] [address] [place] Bacteria,Urine 4+ High None Seen [facility] Comment on above: Order Comment: Name Collection Type:: Voided Performed By: #### A DDONUAPLUS, CUU #### [facility] [address] [place] [address] [place] Bilirubin,Urine Negative Normal Negative [facility] Comment on above: Order Comment: Name Collection Type:: Voided Performed By: #### A DDONUAPLUS, CUU #### [place] [address] [place] Color (U) Yellow Normal Yellow [facility] Comment on above: Order Comment: Name Collection Type:: Voided Performed By: #### A DDONUAPLUS, CUU #### [place] [address] [place] Glucose Ql (U) Normal Normal Normal [facility] Comment on above: Order Comment: Name Collection Type:: Voided Performed By: #### A DDONUAPLUS, CUU #### [place] [address] [place] Hyaline Casts,Urine 0-8 Normal 0-8 [facility] Comment on above: Order Comment: Name Collection Type:: Voided Result Comment: PERF ORMED BY: [place] [address] PATHOLOGIST INSURANCE ADJUSTOR HUY COX M.D. Performed By: #### A DDONUAPLUS, CUU #### [facility] [address] [place] [address] [place] Ketones Ql (U) Negative Normal Negative [facility] Comment on above: Order Comment: Name Collection Type:: Voided Performed By: #### A DDONUAPLUS, CUU #### [facility] [address] [place] [address] [place] Leukocyte esterase Test strip Ql (U) 3+ High Negative [facility] Comment on above: Order Comment: Name Collection Type:: Voided Performed By: #### A DDONUAPLUS, CUU #### [address] Nitrite,Urine Positive High Negative [facility] Comment on above: Order Comment: Name Collection Type:: Voided Performed By: #### A DDONUAPLUS, CUU #### [address] Occult Blood,Urine Negative Normal Negative [facility] Comment on above: Order Comment: Name Collection Type:: Voided Result Comment: PERF ORMED BY: [place] [address] PATHOLOGIST INSURANCE ADJUSTOR HUY COX M.D. Performed By: #### A DDONUAPLUS, CUU #### [address] pH (U) 5.5 [pH] Normal 5.0-9.0 [facility] Comment on above: Order Comment: Name Collection Type:: Voided Performed By: #### A DDONUAPLUS, CUU #### [address] Protein,Urine Negative Normal Negative [facility] Comment on above: Order Comment: Name Collection Type:: Voided Performed By: #### A DDONUAPLUS, CUU #### [address] RBC LM.HPF (Urine sed) [#/Area] 0 /[HPF] Normal 0-4 [facility] Comment on above: Order Comment: Name Collection Type:: Voided Performed By: #### A DDONUAPLUS, CUU #### [place] [address] [place] Specificy [place],Urine 1.012 Normal 1.001-1.030 [facility] Comment on above: Order Comment: Name Collection Type:: Voided Performed By: #### A DDONUAPLUS, CUU #### [place] [address] [place] Squamous Epithelial Cell,Urine 0-1 Normal 0-2 [facility] Comment on above: Order Comment: Name Collection Type:: Voided Performed By: #### A DDONUAPLUS, CUU #### [facility] [address] [place] [address] Urobilinogen,Urine Normal Normal Normal [facility] Comment on above: Order Comment: Name Collection Type:: Voided Performed By: #### A DDONUAPLUS, CUU #### [address] WBC,Urine 20-49 High 0-4 [facility] Comment on above: Order Comment: Name Collection Type:: Voided Performed By: #### A DDONUAPLUS, CUU #### [address] Prealbuminon 10-30-2021 Prealbumin [Mass/Vol] 13.1 mg/dL Low 18.0-38.0 [facility] Comment on above: Result Comment: PERF ORMED BY: [place] [address] PATHOLOGIST INSURANCE ADJUSTOR HUY COX M.D. Performed By: #### C BC, CMP, PAB #### [address] Urine Cultureon 10-30-2021 Bacteria identified Cx Nom (U) ORGANISM: Escherichia coli (O:ESCCOL) [place] Count >100,000 Aerobic JOSE Charge (NUC86) SUSCEPTIBILITY [...] RESISTANT TO ALL B-LACTAM DRUGS. PERFORMED BY: [place] [address] PATHOLOGIST INSURANCE ADJUSTOR HUY COX M.D. Normal [facility] Comment on above: Performed By: #### A DDONUAPLUS, CUU #### [facility] [address] [place] [address] COVID-19 [facility] [place] SARS-CoV-2 (COVID-19) RNA ADRIÁN+probe Ql (Unsp spec) Negative Normal Negative [facility] Comment on above: Order Comment: Healt hcare Worker?: N Result Comment: Testing for SARS-CoV-2 by RT-PCR This test was developed and its performance characteristics determined by [employer] and validated at the [facility]. This test has not been [...] is terminated or revoked sooner. PERFORMED BY: [facility] [address] [id number] PATHOLOGIST INSURANCE ADJUSTOR HUY COX M.D. Performed By: #### C OVID 19 [facility] [place] #### [facility] [address] [id number] [facility] Clinical Event Note-Need for Hospital Bedon [...] of the lumbar region. Provider/Team Contact Info-Pager [phone] Electronic Signatures: Sharmin Guaman (YARD FOREMAN-CLAIM INSPECTOR) (Signed 02-Oct-2021 15:19) Authored: Clinical Event Note Last Updated: 02-Oct-2021 15:19 by Sharmin Guaman (YARD FOREMAN-CLAIM INSPECTOR) Normal [facility] Clinical Event Note-Need for wheel Chairon 10-02-2021 [...] home, can self propel or has a daycare teacher to provide assistance. Provider/Team Contact Info-Pager [phone] Electronic Signatures: Sharmin Guaman (YARD FOREMAN-CLAIM INSPECTOR) (Signed 02-Oct-2021 15:27) Authored: Clinical Event Note Last Updated: 02-Oct-2021 15:27 by Sharmin Guaman (YARD FOREMAN-CLAIM INSPECTOR) Normal [facility] Daily Progress Note-Neurosur jinny 10-02-2021 Daily Progress Note-Neurosurgery Service: Neurosurgery Subjective Data: MORALES LEE is a 46 year old Female who is Hospital Day # 18 and POD #11 for posterior L4-L5 decompression;posterior L4-L5 arthrodesis. Objective Data: Objective Information: T PRBPSpO2 [id number]/8397% Date/Time10/02 1: 1: 1: 1: 1:28 Range(36.2C [...] 2021 10:00 pm000 Oct 01, 2021 2:00 [id number] The Intake and Output Totals for the [...] the note. I personally evaluated the patient [id number] Electronic Signatures: Kenneth Philippe (Resident)) (Signed 02-Oct-2021 06:52) Authored: Service, Subjective Data, Objective Data, Assessment and Plan, Note Completion Lex Frederick) (Signed 02-Oct-2021 15:16) Authored: Note Completion Co-Signer: Service, Subjective Data, Objective Data, Assessment and Plan, Note Completion Last Updated: 02-Oct-2021 15:16 by Lex Frederick) [facility] Clinical Event Note-Discharg e discussionon [...] duration of trip. Electronic Signatures: Ambrocio Izaguirre (YARD FOREMAN-CLAIM INSPECTOR) (Signed 01-Oct-2021 17:11) Authored: Clinical Event Note Last Updated: 01-Oct-2021 17:11 by Ambrocio Izaguirre (YARD FOREMAN-CLAIM INSPECTOR) Normal [facility] Clinical Event Note-Need for hospital bedon 10-01-2021 [...] when lying flat. Electronic Signatures: Ambrocio Izaguirre (YARD FOREMAN-CLAIM INSPECTOR) (Signed 01-Oct-2021 14:48) Authored: Clinical Event Note Last Updated: 01-Oct-2021 14:48 by Ambrocio Izaguirre (YARD FOREMAN-CLAIM INSPECTOR) Normal [facility] Daily Progress Note-Nuha jinny 10-01-2021 Daily Progress Note-Neurosurgery Service: Neurosurgery Subjective Data: MORALES LEE is a 46 year old Female who is Hospital Day # 17 and POD #10 for posterior L4-L5 decompression;posterior L4-L5 arthrodesis. Objective Data: Objective Information: T PRBPSpO2 [id number]/7194% Date/Time10/01 0: 0: 0:381 0:381 0:38 Range(35.6C - 36.8C ) (64 - 96 ) (16 - 19 ) (94 - 138 )/ (59 - 83 ) (92% - 94% ) Pain reported at 09/30 9:00: 2 = Mild ---- Intake and Output ----- Mn/Dy/Year TimeIntakeOutputNet Sep 29, 2021 10:00 [id number] Sep 29, 2021 2:00 [id number] Sep 29, 2021 6:00 am000 The Intake [...] Updated: 01-Oct-2021 10:29 by Lex Frederick) Normal [facility] Daily Progress Note-Neurosurgery This report has been cancelled. Normal [facility] Daily Progress Note-Neurosjudy stearns 09-30-2021 Daily Progress Note-Neurosurgery Service: Neurosurgery Subjective Data: MORALES LEE is a 46 year old Female who is Hospital Day # 15 and POD #8 for posterior L4-L5 decompression;posterior L4-L5 arthrodesis. Objective Data: Objective Information: T PRBPSpO2 Value36.43521029/7393% Date/Time09/29 16: 16: 16: 16: 16:00 Range(36C - 36.7C ) (67 - 86 ) (17 - 20 ) (94 - 153 )/ (15 - 113 ) (93% - 98% ) Pain reported at 09/29 9:56: 5 = Moderate ---- Intake and Output ----- Mn/Dy/Year TimeIntakeOutputNet Sep 29, 2021 2:00 [id number] Sep 29, 2021 6:00 am000 Sep 28, 2021 10:00 [id number] The Intake and Output Totals for the [...] the note. I personally evaluated the patient [id number] Electronic Signatures: Lex Frederick) (Signed 30-Sep-2021 11:18) Authored: Note Completion Co-Signer: Service, Subjective Data, Objective Data, Assessment and Plan, Note Completion Jaya Mosquera (Resident)) (Signed 30-Sep-2021 03:18) Authored: Service, Subjective Data, Objective Data, Assessment and Plan, Note Completion Last Updated: 30-Sep-2021 11:18 by Lex Frederick) Normal [facility] Rehab Xvgj-mc-jquciport - co -tx /c OT to address multidiscipon 09-30-2021 Rehab Qevv-nh-mkqyzznmg - co-tx /c OT to address multidiscip Rehab: Info: Disciplinephysical occupational therapy program director Mode of Treatmentphysical therapy; co-treatment; co-tx /c OT to address multidisciplinary functional needs and maximize pt's safety. Time IN12:15 Time OUT12:55 Total Treatment [id number] Patient in ... at end of sessionbed, 3 railings up; alarm off; not on at start of visit Communicated with ... at end of sessionbedside nurse Patient Effortgood Symptoms Noted During/After Treatmentfatigue Treatment Considerations/CommentsExte nsive discussion /c amongst SENIOR LIBRARIAN, OT, and pt regarding her current physical [...] rolling right; rolling left; scooting/bridging Roll Left Hensley (Bed Mobility)moderate assist (50% patient effort); 1 person assist; nonverbal cues (demo/gesture); verbal cues Roll Right Hensley (Bed Mobility)moderate assist (50% patient effort); 1 person assist; nonverbal cues (demo/gesture); verbal cues Scoot/Bridge Hensley (Bed Mobility)maximum assist (25% patient effort); 2 person assist; nonverbal cues (demo/gesture); verbal cues Nuxssc-pn-Jzs Hensley (Bed Mobility)maximum assist (25% patient effort); 2 person assist; nonverbal cues (demo/gesture); verbal cues Jmn-bm-Gncwlt Hensley (Bed Mobility)maximum assist (25% patient effort); 2 person assist; nonverbal cues (demo/gesture); verbal cues Assistive Device (Bed Mobility)bed rails; draw sheet Comment, Bed MobilityPt showing improvement in her ability to roll, performing 50% of AROM to achieve full rolling position. Transfer Assessment/Interventionssit to stand transfer; stand to sit transfer Comment, TransfersToday's session, OT and I utilized Axeda Stand device to assist pt into full [...] Pt repositioned back to sitting EOB. Sit-Stand Hensley (Transfers)dependent (less than 25% patient effort) Sit-Stand Assistive Device (Transfers)mechanical lift/aid Stand-Sit Hensley (Transfers)dependent (less than 25% patient effort) Stand-Sit [...] Score8 Short Term Goals: Bed Mobility: Date [id number]-[id number] Bed Mobility: Hensley Level Goalminimum assist (75% patients effort) Bed Mobility: Physical Assist Level Goal1-person assist, verbal cues Bed Mobility: Time Frame for Goal2 wks Transfer: Established [id number]-2728 Transfer: Transfer Type Xxyplxa-gl-elxjv/chair-to-b ed; mrm-ze-ufelg/ppwyz-cv-vyq Transfer: Hens[place] Level Goalmoderate assist (50% patients effort) Transfer: Physical Assist Level Goal1-person assist; verbal cues Transfer: Assistive Device Goalrolling walker Transfer: Time Frame for Goal2 wks Gait: Established [id number] Gait: Hensley Level Goalmoderate assist (50% patients (more content not included)... Normal [facility] Rehab Note-occupational therapy program director apy - co-tx with PT to maximizeon 09-30-2021 Rehab Note-occupational therapy - co-tx with PT to maximize Rehab: Info: Disciplineoccupational therapist Mode of Treatmentoccupational therapy; co-tx with PT to maximize pt's mobility and safety. Time IN12:15 Time OUT12:55 Total Treatment [id number] Patient in ... at end of sessionbed, [...] ling right; rolling left; scooting/bridging Roll Left Hensley (Bed Mobility)moderate assist (50% patient effort); 1 person assist; nonverbal cues (demo/gesture); verbal cues Roll Right Hensley (Bed Mobility)moderate assist (50% patient effort); 1 person assist; nonverbal cues (demo/gesture); verbal cues Scoot/Bridge Hensley (Bed Mobility)maximum assist (25% patient effort); 2 [...] lower body dressing; upper body dressing; bathing Hensley Level (Bathing)set up; verbal cues; moderate assist (50% patient effort); 1 person assist Comment (Bathing)anticipated due to impaired balance, strength, and pain. Hensley Level (Upper Body Dressing)set up; verbal cues; moderate assist (50% patient effort) Comment (Upper Body Dressing)anticipated due to impaired balance, strength, and pain. Hensley Level (Lower Body Dressing)don; socks; dependent (less than 25% patient effort) Position (Lower Body Dressing)supine Hensley Level (Grooming)modified independence Comment (Grooming)Pt observed applying Orajel to gums, able to manage packaging, cap un/screwing, and application. Hensley Level (Feeding)modified independence Comment (Feeding)Pt able to retrieve OJ cup from tray table at R side, bring to mouth, and drink appropriately. Hensley Level (Toileting)dependent (less than 25% patient effort); [...] Score15 Short Term Goals: Bed Mobility: Date Lvxwnmlkxub23-Bpi-2065 Bed Mobility: [place] Level Goalcontact guard Bed Mobility: Physical Assist Level Goalset-up, verbal cues Bed Mobility: Time Frame for Goal2 wks Transfer: Established [id number] Transfer: Transfer Type Qqzrpnt-dw-zqtyi/chair-to-b ed; wau-qv-motnt/wcftx-ms-wju; toilet Transfer: [place] Level Goalminimum assist (75% patients effort) Transfer: Physical Assist Level Goalset-up; verbal cues; 1-person assist Transfer: Assistive Device GoalLRD Transfer: Time Frame for Goal2 wks Balance: Established [id number]-Fok-1067 Balance: Goal DetailsPt will perform ADL while reaching outside MADDIE and returning self to midline >8 minutes with set-up assist, SBA, and minimal verbal cues for safety. Enrique (more content not included)... Normal [facility] Daily Progress Note-Neurosur jinny 09-29-2021 Daily Progress Note-Neurosurgery Service: Neurosurgery Subjective Data: MORALES LEE is a 46 year old Female who is Hospital Day # 14 and POD #7 for posterior L4-L5 decompression;posterior L4-L5 arthrodesis. Objective Data: Objective Information: T PRBPSpO2 [id number]/6993% Date/Time09/28 4: 8: 8: 8: 8:00 Range(36C [...] 2021 6:00 am000 Sep 27, 2021 10:00 [id number] Sep 27, 2021 2:00 [id number] The Intake and Output Totals for the last 24 hours are: IntakeOutputNet [id number] Physical Exam by System: Neurological: A&Ox3 RUE [...] the note. I personally evaluated the patient [id number] Electronic Signatures: Lex Frederick) (Signed 29-Sep-2021 09:23) Authored: Note Completion Co-Signer: Service, Subjective Data, Objective Data, Assessment and Plan, Note Completion Jaya Mosquera (Resident)) (Signed 29-Sep-2021 03:01) Authored: Service, Subjective Data, Objective Data, Assessment and Plan, Note Completion Last Updated: 29-Sep-2021 09:23 by Lex Frederick) [facility] Rehab Erqb-nh-chjpibcnl - co -tx /c OT to address multidiscipon 09-29-2021 Rehab Amcd-li-ipjccbzih - co-tx /c OT to address multidiscip Rehab: Info: Disciplinephysical occupational therapy program director Mode of Treatmentphysical therapy; co-treatment; co-tx /c OT to address multidisciplinary functional needs and maximize pt's safety. Time IN14:30 Time OUT15:40 Total Treatment [id number] Patient in ... at end of sessionbed, [...] to sit; sit to supine Roll Left Hensley (Bed Mobility)maximum assist (25% patient effort); 2 person assist; verbal cues; nonverbal cues (demo/gesture) Roll Right H[place] (Bed Mobility)maximum assist (25% patient effort); 2 person assist; verbal cues; nonverbal cues (demo/gesture) Scoot/Bridge Hensley (Bed Mobility)maximum assist (25% patient effort); 2 person assist; nonverbal cues (demo/gesture); verbal cues Yubprs-qw-Gli [place]ensley (Bed Mobility)maximum assist (25% patient effort); 2 person assist; nonverbal cues (demo/gesture); verbal cues Nuq-bo-Ivdxdi [place]ensley (Bed Mobility)verbal cues; nonverbal cues (demo/gesture); maximum [...] Pt repositioned back to sitting EOB. Sit-Stand [place] (Transfers)dependent (less than 25% patient effort) Sit-Stand Assistive Device (Transfers)mechanical lift/aid Stand-Sit Hensley (Transfers)dependent (less than 25% patient effort) Stand-Sit [...] Score8 Short Term Goals: Bed Mobility: Date Qbxjucugzuh66-Gch-4667 Bed Mobility: [place] Level Goalminimum assist (75% patients effort) Bed Mobility: Physical Assist Level Goal1-person assist, verbal cues Bed Mobility: Time Frame for Goal2 wks Transfer: Established [id number]-Mtc-2320 Transfer: Transfer Type Cdiizri-rc-aodcn/chair-to-b ed; oml-ot-kqjhh/gjvdp-fb-ilc Transfer: [place] Level Goalmoderate assist (50% patients effort) Transfer: Physical Assist Level Goal1-person assist; verbal cues Transfer: Assistive Device Goalrolling walker Transfer: Time Frame for Goal2 wks Gait: Established [id number]-3734 Gait: [place] Level Goalmoderate assist (50% patients effort) Gait: Physical Assist Level1-person assist; verbal cues Gait: Assistive Device Goalrolling walker Gait: Distance Goal15 feet Gait: Time Frame for Goal2 wks Balance: Established [id number]-Qns-5990 Balance: Goal DetailsSitting EOB 20 minutes with 0-1 UE support, SBA for static sitting, CGA for dynamic. Standing 1 minute with FWW and CGA Education: Learnerpatient Topicrehab plan of care; discharge recommendations including destination and/or equipment Outcome Summary: Progress: Physical Therapyprogress towards functional goals is fair Outcome (more content not included)... Normal [facility] Rehab Note-occupational therapy program director apy - co-tx with PT to maximizeon 09-29-2021 Rehab Note-occupational therapy - co-tx with PT to maximize Rehab: Info: Disciplineoccupational therapist Mode of Treatmentoccupational therapy; co-tx with PT to maximize pt's mobility and safety. Time IN14:30 Time OUT15:40 Total Treatment [id number] Patient in ... at end of sessionbed, [...] to sit; sit to supine Roll Left Hens[place] (Bed Mobility)maximum assist (25% patient effort); 2 person assist; verbal cues; nonverbal cues (demo/gesture); multiple rolls to adjust harness Roll Right [place] (Bed Mobility)maximum assist (25% patient effort); 2 person assist; verbal cues; nonverbal cues (demo/gesture); multiple rolls to adjust harness Scoot/Bridge [place] (Bed Mobility)maximum assist (25% patient effort); 2 person assist; nonverbal cues (demo/gesture); verbal cues; boost HOB Ahgxgc-uw-Dxl [place]ensley (Bed Mobility)maximum assist (25% patient effort); 2 person assist; nonverbal cues (demo/gesture); verbal cues Xnw-ew-Zfsyuq [place] (Bed Mobility)verbal cues; nonverbal cues (demo/gesture); maximum assist (25% patient effort); 2 person assist Assistive Device (Bed Mobility)draw sheet; bed rails Transfer Assessment/Interventionssit to stand transfer; stand to sit transfer Sit-Stand [place] (Transfers)dependent (less than 25% patient effort) Sit-Stand Assistive Device (Transfers)mechanical lift/aid; Faye Plus Stand-Sit Hensley (Transfers)dependent (less than 25% patient effort) Stand-Sit Assistive Device (Transfers)mechanical lift/aid; Faye Plus Safety Issues Impacting Function (Mobility)awareness of need for assistance; insight into deficits/self awareness Impairments Impacting Function (Mobility)endurance/activit y tolerance; strength; balance; coordination; postural/trunk control ADL: BADL Assessment/Interventiontoil eting; feeding; grooming; lower body dressing; upper body dressing; bathing [place] Level (Bathing)set up; verbal cues; moderate assist (50% patient effort); 1 person assist Comment (Bathing)anticipated due to impaired balance, strength, and pain. [place]ley Level (Upper Body Dressing)set up; verbal cues; moderate assist (50% patient effort) Comment (Upper Body Dressing)anticipated due to impaired balance, strength, and pain. Hensley Level (Lower Body Dressing)don; socks; dependent (less than 25% patient effort) Position (Lower Body Dressing)supine Hensley Level (Grooming)set up; contact guard Comment (Grooming)anticipated due to impaired balance, strength, and pain. Hensley Level (Feeding)set up; modified independence Comment (Feeding)anticipated Hensley Level (Toileting)dependent (less than 25% patient effort); purewick Impairments, BADL Safety/Performancebalance; cognition; endurance/activity tolerance; strength; trunk/postural control Cognitive Impairments, BADL Safety/Performanceawareness , need for assistance; insight into deficits/self awareness; judgment; problem solving/reasoning Motor: Sitting, Static (Balance)good balance SBA Sitting, Dynamic (Balance)fair balance CGA Fzm-ra-Gnslz (Balance)poor balance Total A via Faye Plus lift Standing, Static (Balance)poor balance Max A x1 - via Faye Plus Standing, Dynamic (Balance)unable to balance Balance ActivitiesPt sat EOB ~20 minutes throughout session primarily with SB (more content not included)... Normal [facility] Clinical Event Note-Medical Assessmenton 09-28-2021 Clinical Event [...] oil enema alternating with tap water enema Q4Apedi - Bisacodyl suppository QHS Daily - Monitor [...] note 45 minutes; Electronic Signatures: Concetta Shi (YARD FOREMAN-CLAIM INSPECTOR) (Signed 28-Sep-2021 14:31) Authored: Clinical Event Note Last Updated: 28-Sep-2021 14:31 by Concetta Shi (YARD FOREMAN-CLAIM INSPECTOR) Normal [facility] Daily Progress Note-Gastroen terologyon 09-28-2021 Daily Progress Note-Gastroenterolog y Service: Gastroenterology Subjective Data: MORALES LEE is a 46 year old Female who is Hospital Day # 14 and POD #7 for posterior L4-L5 decompression;posterior L4-L5 arthrodesis. No events overnight. Had one bowel movement this am. Otherwise no complaints. Objective Data: Objective Information: T PRBPSpO2 [id number]/6993% Date/Time09/28 4:001 8: 8: 8: 8:00 Range(36C [...] 2021 6:00 am000 Sep 27, 2021 10:00 [id number] Sep 27, 2021 2:00 [id number] The Intake and Output Totals for the last 24 hours are: IntakeOutputNet [id number] Physical Exam by System: Constitutional: Constitutional: A&Ox3, [...] recommend tr (more content not included)... Normal [facility] Daily Progress Note-Neurosjudy jinny 09-28-2021 Daily Progress Note-Neurosurgery Service: Neurosurgery Subjective Data: MORALES LEE is a 46 year old Female who is Hospital Day # 14 and POD #7 for posterior L4-L5 decompression;posterior L4-L5 arthrodesis. Objective Data: Objective Information: T PRBPSpO2 [id number]/4893% Date/Time09/28 4: 4: 4: 4: 4:00 Range(36C - 36.6C ) (72 - 87 ) (15 - 22 ) (92 - 153 )/ (48 - 113 ) (92% - 99% ) As of 27-Sep-2021 22:00:00, patient is on 2 L/min of oxygen via nasal cannula. Pain reported at 09/27 22:00: 0 = None ---- Intake and Output ----- Mn/Dy/Year TimeIntakeOutputNet Sep 26, 2021 10:00 [id number] Sep 26, 2021 2:00 [id number] The Intake and Output Totals for the last 24 hours are: IntakeOutputNet [id number] Physical Exam by System: Neurological: A&Ox3 RUE [...] the note. I personally evaluated the patient [id number] Electronic Signatures: Fidel Maciel (Resident)) (Signed 28-Sep-2021 05:47) Authored: Service, Subjective Data, Objective Data, Assessment and Plan, Note Completion Lex Frederick) (Signed 28-Sep-2021 07:32) Authored: Note Completion Co-Signer: Service, Subjective Data, Objective Data, Assessment and Plan, Note Completion Last Updated: 28-Sep-2021 07:32 by Lex Frederick) Normal [facility] RENAL FUNCTION PANELon 09-28 Albumin [Mass/Vol] 3.1 g/dL Low 3.4 - 5.0 [facility] Comment on above: Performed By: #### R ENAL ####[id number] [place] [address] Anion gap [Moles/Vol] 17 mmol/L Normal 10 - 20 [facility] Comment on above: Performed By: #### R ENAL ####[id number] [place] [address] Calcium [Mass/Vol] 8.4 mg/dL Low 8.6 - 10.6 [facility] Comment on above: Performed By: #### R ENAL ####[id number] [place] [address] Chloride [Moles/Vol] 102 mmol/L Normal 98 - 107 [facility] Comment on above: Performed By: #### R ENAL ####[id number] [place] [address] Creatinine [Mass/Vol] 0.47 mg/dL Low 0.50 - 1.05 [facility] Comment on above: Performed By: #### R ENAL ####[id number] [place] [address] eGFR FEMALE >90 Normal >90 [facility] Comment on above: Result Comment: CALC ULATIONS OF ESTIMATED GFR ARE PERFORMED USING THE 2020 CKD-EPI STUDY REFIT EQUATION WITHOUT THE RACE VARIABLE FOR THE IDMS-TRACEABLE CREATININE METHODS. https://jasn.asnjournals.org/content//ASN.6394471 988 Performed By: #### R ENAL ####[id number] [place] [address] Glucose [Mass/Vol] 74 mg/dL Normal 74 - 99 [facility] Comment on above: Performed By: #### R ENAL ####[id number] [place] [address] HCO3 (Bld) [Moles/Vol] 27 mmol/L Normal 21 - 32 [facility] Comment on above: Performed By: #### R ENAL ####[id number] [place] [address] Phosphate [Mass/Vol] 3.4 mg/dL Normal 2.5 - 4.9 [facility] Comment on above: Result Comment: The performance characteristics of phosphorus testing in heparinized plasma have been validated by the individual laboratory site where testing is performed. Testing on heparinized plasma is not approved by the FDA; however, such approval is not necessary. Performed By: #### R ENAL ####[id number] [place] [address] Potassium [Moles/Vol] 3.7 mmol/L Normal 3.5 - 5.3 [facility] Comment on above: Performed By: #### R ENAL ####[id number] [place] [address] Sodium [Moles/Vol] 142 mmol/L Normal 136 - 145 [facility] Comment on above: Performed By: #### R ENAL ####[id number] [place] [address] Urea nitrogen [Mass/Vol] 6 mg/dL Normal 6 - 23 [facility] Comment on above: Performed By: #### R ENAL ####[id number] [place] [address] Radiologyon 09-28-2021 XR Abdomen AP Normal [facility]-Gastroen terology-[place] [facility] Work Phone: Rehab Note-attemptedon 09-28 Rehab Note-attempted Rehab: Info: Disciplinephysical occupational therapy program director Mode of Treatmentattempted Time IN15:30 Reason Treatment Not Performedpatient/family declined treatment, not feeling well Treatment Considerations/CommentsPt declined therapy at this time 2* increased fatigue, nausea. Pt stated NO! NO! NO! upon therapists arrival, even /c increased encouragement. Will reattempt as schedule allows. Short Term Goals: Bed Mobility: Date Emxjwmmshqb38-Vmc-8521 Bed Mobility: Hensley Level Goalminimum assist (75% patients effort) Bed Mobility: Physical Assist Level Goal1-person assist, verbal cues Bed Mobility: Time Frame for Goal2 wks Transfer: Established [id number]-Dtd-8092 Transfer: Transfer Type Fqegoot-wx-jniih/chair-to-b ed; jpv-pa-nvbas/ofylx-hi-nom Transfer: [place] Level Goalmoderate assist (50% patients effort) Transfer: Physical Assist Level Goal1-person assist; verbal cues Transfer: Assistive Device Goalrolling walker Transfer: Time Frame for Goal2 wks Gait: Established [id number]-[id number]-1941 Gait: [place]ens[place] Level Goalmoderate assist (50% patients effort) Gait: Physical Assist Level1-person assist; verbal cues Gait: Assistive Device Goalrolling walker Gait: Distance Goal15 feet Gait: Time Frame for Goal2 wks Balance: Established [id number] Balance: Goal DetailsSitting EOB 20 minutes with 0-1 UE support, SBA for static sitting, CGA for dynamic. Standing 1 minute with FWW and CGA Electronic Signatures: Yosi Campbell (SENIOR LIBRARIAN) (Signed 28-Sep-2021 15:32) Entered: Short Term Goals, Info Authored: Deon, Short Term Goals Boone Broussard (PT) (Signed 01-Oct-2021 09:01) Co-Signer: Short Term Goals, Info Last Updated: 01-Oct-2021 09:01 by Boone Broussard (PT) Normal [facility] Rehab Note-attempted Rehab: Info: Mode of Treatmentattempted [...] 28-Sep-2021 15:28 by Silvana Marshall (OT) Normal [facility] Renal Function Panelon 09-28 Albumin BCP dye [Mass/Vol] 3.1 g/dL below low threshold 3.4 - 5.0 [facility]astroen [facility]ology[facility] [facility] Work Phone: Anion gap [Moles/Vol] 17 mmol/L [...] en terology-[place] [facility] I Work Phone: [phone] Creatinine [Mass/Vol] 0.47 mg/dL below low threshold See Below [facility]-Gastroen terology-[place] [facility] I Work Phone: Comment on above: Reference Range: 0.5 0 - 1.05 Glucose [Mass/Vol] 74 mg/dL 74 - 99 MG-Gas troen terology-[place] 6 I Work Phone: Phosphate [Mass/Vol] 3.4 mg/dL 2.5 - 4.9 MG-G astroen terology-[place] 6 I Work Phone: [phone] Comment on above: The performance arsalan acteristics [...] RACE VARIABLE FOR THE IDMS-TRACEABLE CREATININE METHODS.https://jasn.asnjournals.org/content/early//ASN .4211569929 TH ABDOMEN AP VIEWon 022 ABDOMEN AP VIEW Patient Name: MORALES LEE STUDY: ABDOMEN AP VIEW; 09/28/2021 1:22 pm INDICATION: Abd. dist. . COMPARISON: 09/27/2021 abdominal radiograph. ACCESSION NUMBER(S): [id number] ORDERING CLINICIAN: CONCETTA SHI FINDINGS: Two AP [...] as stated. This study was interpreted at , [place], [place]. Electronically signed by: TANIKA SUTTON MD [facility] Consult-Gastroenterologyon 0 09-27-2021 Consult-Gastroentero logy Service: Service: Gastroenterology Consult: Consult requested by (Attending Name): Dr. Orteag Reason: constipation History of Present Illness: HPI: [...] admission for post-op pain including a dilaudid SPECTROGRAPHIC ANALYST. Has been on scheduled bowel regimen with [...] penicillin: Unknown Objective: Objective Information: T PRBPSpO2 [id number]/03568% Date/Time09/27 4: 4: 4:001 4:00 Range (76 [...] C6-7 ACDFF, (more content not included)... Normal [facility] Daily Progress Note-Neurosur leonidasyon 09-27-2021 Daily Progress Note-Neurosurgery Service: Neurosurgery Subjective Data: MORALES LEE is a 46 year old Female who is Hospital Day # 13 and POD #6 for posterior L4-L5 decompression;posterior L4-L5 arthrodesis. Objective Data: Objective Information: T PRBPSpO2 [id number]/57508% Date/Time09/26 11:0809/27 4: 4: 4: 4:00 Range(37C [...] 2021 6:00 am000 Sep 26, 2021 10:00 [id number] Sep 26, 2021 2:00 [id number] The Intake and Output Totals for the last 24 hours are: IntakeOutputNet [id number] Physical Exam by System: Neurological: A&Ox3 RUE [...] the note. I personally evaluated the patient [id number] Electronic Signatures: Chaparro Umana (Resident)) (Signed 27-Sep-2021 06:11) Authored: Service, Subjective Data, Objective Data, Assessment and Plan, Note Completion Natalia Palacios) (Signed 08-Oct-2021 14:31) Authored: Note Completion Co-Signer: Service, Subjective Data, Objective Data, Assessment and Plan, Note Completion Last Updated: 08-Oct-2021 14:31 by Natalia Palacios) Normal [facility] MAGNESIUMon 09-27-2021 Magnesium [Mass/Vol] 1.80 mg/dL Normal 1.60 - 2.40 [facility] Comment on above: Performed By: #### C BC #### [facility] [address] [place] [address] Magnesium, Serumon Magnesium [Mass/Vol] 1.80 mg/dL See Below MG-G astroen terology-[place] 6 [facility] Work Phone: Comment on above: Reference Range: 1.6 0 - 2.40 RENAL FUNCTION PANELon 09-27 Albumin [Mass/Vol] 3.3 g/dL Low 3.4 - 5.0 [facility] Comment on above: Performed By: #### R ENAL #### [facility] [address] [place] [address] Anion gap [Moles/Vol] 17 mmol/L Normal 10 - 20 [facility] Comment on above: Performed By: #### R ENAL #### [facility] [address] [place] [address] Calcium [Mass/Vol] 8.5 mg/dL Low 8.6 - 10.6 [facility] Comment on above: Performed By: #### R ENAL #### [facility] [address] [place] [address] Chloride [Moles/Vol] 98 mmol/L Normal 98 - 107 [facility] Comment on above: Performed By: #### R ENAL #### [facility] [address] [place] [address] Creatinine [Mass/Vol] 0.44 mg/dL Low 0.50 - 1.05 [facility] Comment on above: Performed By: #### R ENAL #### [facility] [address] [place] [address] eGFR FEMALE >90 Normal >90 [facility] Comment on above: Result Comment: CALC ULATIONS OF ESTIMATED GFR ARE PERFORMED USING THE 2020 CKD-EPI STUDY REFIT EQUATION WITHOUT THE RACE VARIABLE FOR THE IDMS-TRACEABLE CREATININE METHODS. https://jasn.asnjournals.org/content//ASN.6586438 988 Performed By: #### R ENAL #### [facility] [address] [place] [address] Glucose [Mass/Vol] 91 mg/dL Normal 74 - 99 [facility] Comment on above: Performed By: #### R ENAL #### [facility] [address] [place] [address] HCO3 (Bld) [Moles/Vol] 26 mmol/L Normal 21 - 32 [facility] Comment on above: Performed By: #### R ENAL #### [facility] [address] [place] [address] Phosphate [Mass/Vol] 4.0 mg/dL Normal 2.5 - 4.9 [facility] Comment on above: Result Comment: The performance characteristics of phosphorus testing in heparinized plasma have been validated by the individual laboratory site where testing is performed. Testing on heparinized plasma is not approved by the FDA; however, such approval is not necessary. Performed By: #### R ENAL #### [facility] [address] [place] [address] Potassium [Moles/Vol] 4.1 mmol/L Normal 3.5 - 5.3 [facility] Comment on above: Performed By: #### R ENAL #### [facility] [address] [place] [address] Sodium [Moles/Vol] 137 mmol/L Normal 136 - 145 [facility] Comment on above: Performed By: #### R ENAL #### [facility] [address] [place] [address] Urea nitrogen [Mass/Vol] 6 mg/dL Normal 6 - 23 [facility] Comment on above: Performed By: #### R ENAL #### [facility] [address] [place] [address] Radiologyon 09-27-2021 XR Abdomen AP Normal MG-Gastroen [...] RACE VARIABLE FOR THE IDMS-TRACEABLE CREATININE METHODS.https://jasn.asnjournals.org/content/early//ASN .3997574392 TH ABDOMEN AP VIEWon 022 ABDOMEN AP VIEW Patient Name: MORALES LEE STUDY: ABDOMEN AP VIEW; 09/27/2021 2:33 am INDICATION: vomiting, constipation . COMPARISON: None. ACCESSION NUMBER(S): [id number] ORDERING CLINICIAN: FIDEL MACIEL FINDINGS: 2 AP [...] as stated. This study was interpreted at , [place], [place]. Electronically signed by: DWIGHT MOY MD [facility] Daily Progress Note-Nuha stearns 09-26-2021 Daily Progress Note-Neurosurgery Service: Neurosurgery Subjective Data: MORALES LEE is a 46 year old Female who is Hospital Day # 12 and POD #5 for posterior L4-L5 decompression;posterior L4-L5 arthrodesis. Objective Data: Objective Information: T PRBPSpO2 Gddvr1191911/8299% Date/Time09/25 17: 12: 17: 17:08 Range (68 - 98 ) (21 - 23 ) (118 - 136 )/ (69 - 82 ) (92% - 99% ) Pain reported at 09/26 3:00: sleeping ---- Intake and Output ----- Mn/Dy/Year TimeIntakeOutputNet Sep 24, 2021 10:00 [id number] Sep 24, 2021 2:00 [id number] Sep 24, 2021 6:00 [id number] The Intake and Output Totals for the last 24 hours are: IntakeOutputNet [id number] Physical Exam by System: Neurological: A&Ox3 RUE [...] the note. I personally evaluated the patient [id number] Electronic Signatures: Jaya Mosquera (Resident)) (Signed 26-Sep-2021 07:08) Authored: Service, Subjective Data, Objective Data, Assessment and Plan, Note Completion Natalia Palacios) (Signed 08-Oct-2021 14:10) Authored: Note Completion Co-Signer: Service, Subjective Data, Objective Data, Assessment and Plan, Note Completion Last Updated: 08-Oct-2021 14:10 by Natalia Palacios) Normal [facility] Clinical Event Note-POD 4 / Abdominal assessmenton [...] wound check 10/07/21 at 10:15 am, [facility] 5th floor - F/U with Dr. [...] plan of care. Electronic Signatures: Concetta Shi (YARD FOREMAN-CLAIM INSPECTOR) (Signed 25-Sep-2021 13:30) Authored: Clinical Event Note Last Updated: 25-Sep-2021 13:30 by Concetta Shi (YARD FOREMAN-CLAIM INSPECTOR) Normal [facility] Daily Progress Note-Nuha stearns 09-25-2021 Daily Progress Note-Neurosurgery Service: Neurosurgery Subjective Data: MORALES LEE is a 46 year old Female who is Hospital Day # 11 and POD #4 for posterior L4-L5 decompression;posterior L4-L5 arthrodesis. Objective Data: Objective Information: T PRBPSpO2 [id number]/6799% Date/Time09/24 16: 16: 16: 16:00 Range (68 - 78 ) (18 - 19 ) (102 - 117 )/ (57 - 73 ) (95% - 99% ) As of 24-Sep-2021 21:40:00, patient is on 2 L/min of oxygen via nasal cannula. Pain reported at 09/24 21:40: 8 = Severe ---- Intake and Output ----- Mn/Dy/Year TimeIntakeOutputNet Sep 23, 2021 10:00 [id number] Sep 23, 2021 6:00 [id number] The Intake and Output Totals for the last 24 hours are: [facility] [id number] Physical Exam by System: Neurological: A&Ox3 RUE [...] the note. I personally evaluated the patient [id number] Electronic Signatures: Lex Frederick) (Signed 25-Sep-2021 11:57) Authored: Note Completion Co-Signer: Service, Subjective Data, Objective Data, Assessment and Plan, Note Completion Alfredo Hendrickson (Resident)) (Signed 25-Sep-2021 05:56) Authored: Service, Subjective Data, Objective Data, Assessment and Plan, Note Completion Last Updated: 25-Sep-2021 11:57 by Lex Frederick) [facility] Rehab Hupi-nt-cakqjschl - co -tx /c OT to address multidiscipon 09-25-2021 Rehab Ayxc-gw-ralfyfwyh - co-tx /c OT to address multidiscip Rehab: Info: Disciplinephysical occupational therapy program director Mode of Treatmentphysical therapy; co-treatment; co-tx /c OT to address multidisciplinary functional needs and maximize pt's safety. Time IN15:05 Time OUT15:59 Total Treatment [id number] Patient in ... at end of sessionbed, [...] scooting/bridging; rolling right; rolling left Roll Left Hensley (Bed Mobility)maximum assist (25% patient effort); 2 person assist; verbal cues; nonverbal cues (demo/gesture) Roll Right Hensley (Bed Mobility)maximum assist (25% patient effort); 2 person assist; verbal cues; nonverbal cues (demo/gesture) Scoot/Bridge Hensley (Bed Mobility)maximum assist (25% patient effort); 2 person assist; nonverbal cues (demo/gesture); verbal cues Zqwrmr-ku-Lrd Hensley (Bed Mobility)maximum assist (25% patient effort); 2 person assist; verbal cues; nonverbal cues (demo/gesture) Fnz-ln-Awhlis Hensley (Bed Mobility)maximum assist (25% patient effort); 2 [...] unable to get to full standing. Sit-Stand Hensley (Transfers)maximum assist (25% patient effort); verbal cues; nonverbal cues (demo/gesture); 2-3 persona assist Sit-Stand Assistive Device (Transfers)walker, front-wheeled Stand-Sit Hensley (Transfers)maximum assist (25% patient effort); nonverbal cues [...] Score8 Short Term Goals: Bed Mobility: Date [id number] Bed Mobility: Hensley Level Goalminimum assist (75% patients effort) Bed Mobility: Physical Assist Level Goal1-person assist, verbal cues Bed Mobility: Time Frame for Goal2 wks Transfer: Established [id number] Transfer: Transfer Type Omybjul-la-qclhg/chair-to-b ed; uxg-ck-laigj/ufgxe-dw-oog Transfer: [place]ensley Level Goalmoderate assist (50% patients effort) Transfer: Physical Assist Level Goal1-person assist; verbal cues Transfer: Assistive Device Goalrolling walker Transfer: Time Frame for Goal2 wks Gait: Established Gait: Hensley Level Goalmoderate assist (50% patients effort) Gait: [...] goals is gradual Electronic Signatures: Yosi Campbell (SENIOR LIBRARIAN) (Signed 25-Sep-2021 16:59) Entered: Outcome Summary, Short Term Goals, Sensory, TherEx, Outcomes Tools, Info, Mobility/Tone Authored: Short Term Goals, Outcome Summary, TherEx, Outcomes Tools, Info, Mobility/Tone, Sensory Boone Broussard (PT) (Signed 01-Oct-2021 09:01) Co-Signer: Outcome Summary, Short Term Goals, Sensory, TherEx (more content not included)... Normal [facility] Rehab Note-occupational therapy program director apy - Partial co-tx with PT to tue09-25-2021 Rehab Note-occupational therapy - Partial co-tx with PT to Rehab: Info: Disciplineoccupational therapist Mode of Treatmentoccupational therapy; Partial co-tx with PT to maximize pt's mobility and safety. Time IN15:03 Time OUT15:56 Total Treatment [id number] Patient in ... at end of sessionbed, [...] sit to supine; rolling right Roll Left Hensley (Bed Mobility)Pt required assist to bend BLE at knees and to initiate turn at shoulders and hips, verbal cues for grasp on bed rail, technique, direction follow, and encouragement.; set up; verbal cues; maximum assist (25% patient effort); 2 person assist Roll Right Hensley (Bed Mobility)Pt required assist to bend BLE at knees and to initiate turn at shoulders and hips, verbal cues for grasp on bed rail, technique, direction follow, and encouragement.; set up; verbal cues; maximum assist (25% patient effort); 2 person assist Scoot/Bridge Hensley (Bed Mobility)boost HOB; set up; verbal cues; maximum assist (25% patient effort); 2 person assist Itjsfc-zc-Ktn Hensley (Bed Mobility)HOB elevated; set up; verbal cues; maximum assist (25% patient effort); 2 person assist Hqb-dn-Hxbsid Hensley (Bed Mobility)HOB elevated; set up; verbal cues; maximum assist (25% patient effort); 2 person assist Assistive Device (Bed Mobility)bed rails; draw sheet Transfer Assessment/Interventionssit to stand transfer Sit-Stand Hensley (Transfers)set up; verbal cues; maximum assist (25% patient effort); x 2-3 assist Safety Issues Impacting Function (Mobility)ability to follow commands; awareness of need for assistance; insight into deficits/self awareness; judgment; problem solving Impairments Impacting Function (Mobility)balance; cognition; endurance/activity tolerance; pain; strength; postural/trunk control ADL: BADL Assessment/Interventiontoil eting; feeding; grooming; lower body dressing; upper body dressing; bathing Hensley Level (Bathing)set up; verbal cues; moderate assist (50% patient effort); 1 person assist Comment (Bathing)anticipated due to impaired balance, strength, and pain. Hensley Level (Upper Body Dressing)set up; verbal cues; moderate assist (50% patient effort) Comment (Upper Body Dressing)anticipated due to impaired balance, strength, and pain. Hensley Level (Lower Body Dressing)don; socks; dependent (less than 25% patient effort) Position (Lower Body Dressing)supine Hensley Level (Grooming)set up; contact guard Comment (Grooming)anticipated due to impaired balance, strength, and pain. Hensley Level (Feeding)set up; modified independence Comment (Feeding)anticipated Hensley Level (Toileting)dependent (less than 25% patient effort); purewick Impairments, BADL Safety/Performancebalance; cognition; endurance/activity tolerance; strength; trunk/postural control Cognitive Impairments, BADL Safety/Performanceawareness , need for assistance; insight into deficits/self awareness; judgment; problem solving/reasoning Motor: Sitting, Static (Balance)good balance SBA Sitting, Dynamic (Balance)fair balance CGA Fww-ag-Gizlk (Balance)poor balance Max A x 2-3 - attempted Standing, Static (Balance)unable to balance Standing, Dynamic (Balance)unable to balance Balance ActivitiesPt sat EOB ~30 minutes with SBA/CGA for safety. Pt demonstrated good sitting balance and trunk control. Pt attempted STS transfers 3x with (more content not included)... Normal [facility] Daily Progress Note-Nuha stearns 09-24-2021 Daily Progress Note-Neurosurgery Service: Neurosurgery Subjective Data: MORALES LEE is a 46 year old Female who is Hospital Day # 10 and POD #3 for posterior L4-L5 decompression;posterior L4-L5 arthrodesis. Objective Data: Objective Information: T PRBPSpO2 [id number]/5499% Date/Time09/23 20:4809/23 20: 20: 20: 20:48 Range(35.5C - 36.1C ) (66 - 75 ) (16 - 19 ) (90 - 118 )/ (54 - 75 ) (98% - 99% ) As of 23-Sep-2021 22:43:00, patient is on 2 L/min of oxygen via nasal cannula. ---- Intake and Output ----- Mn/Dy/Year TimeIntakeOutputNet Sep 22, 2021 10:00 [id number] Sep 22, 2021 2:00 [id number] Sep 22, 2021 6:00 [id number] The Intake and Output Totals for the last 24 hours are: IntakeOutputNet [id number] Physical Exam by System: Neurological: A&Ox3 RUE [...] the note. I personally evaluated the patient [id number] Comments/ Additional Findings Doing well. Kyphotic posture and Back Pain from instability and traumatic chance fracture significantly improved as compared to preop. 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 Normal [facility] MAGNESIUMon 09-24-2021 Magnesium [Mass/Vol] 1.71 mg/dL Normal 1.60 - 2.40 [facility] Comment on above: Performed By: #### A FPA3 #### [facility] [id number] [place] [address] Magnesium, Serumon Magnesium [Mass/Vol] 1.71 mg/dL See Below MG-G astroen terology-[place] [facility] 6 [facility] Work Phone: Comment on above: Reference Range: 1.6 0 - 2.40 RENAL FUNCTION PANELon 09-24 Albumin [Mass/Vol] 2.6 g/dL Low 3.4 - 5.0 [facility] Comment on above: Performed By: #### R ENAL ####[id number] [place] [address] Anion gap [Moles/Vol] 10 mmol/L Normal 10 - 20 [facility] Comment on above: Performed By: #### R ENAL ####[id number] [place] [address] Calcium [Mass/Vol] 7.7 mg/dL Low 8.6 - 10.6 [facility] Comment on above: Performed By: #### R ENAL ####[id number] [place] [address] Chloride [Moles/Vol] 108 mmol/L High 98 - 107 [facility] Comment on above: Performed By: #### R ENAL ####[id number] [place] [address] Creatinine [Mass/Vol] 0.39 mg/dL Low 0.50 - 1.05 [facility] Comment on above: Performed By: #### R ENAL ####[id number] [place] [address] eGFR FEMALE >90 Normal >90 [facility] Comment on above: Result Comment: CALC ULATIONS OF ESTIMATED GFR ARE PERFORMED USING THE 2020 CKD-EPI STUDY REFIT EQUATION WITHOUT THE RACE VARIABLE FOR THE IDMS-TRACEABLE CREATININE METHODS. https://jasn.asnjournals.org/content/early//ASN.5242054 988 Performed By: #### R ENAL ####[id number] [place] [address] Glucose [Mass/Vol] 92 mg/dL Normal 74 - 99 [facility] Comment on above: Performed By: #### R ENAL ####[id number] [place] [address] HCO3 (Bld) [Moles/Vol] 29 mmol/L Normal 21 - 32 [facility] Comment on above: Performed By: #### R ENAL ####[id number] [place] [address] Phosphate [Mass/Vol] 3.3 mg/dL Normal 2.5 - 4.9 [facility] Comment on above: Result Comment: The performance characteristics of phosphorus testing in heparinized plasma have been validated by the individual laboratory site where testing is performed. Testing on heparinized plasma is not approved by the FDA; however, such approval is not necessary. Performed By: #### R ENAL ####[id number] [place] [address] Potassium [Moles/Vol] 3.9 mmol/L Normal 3.5 - 5.3 [facility] Comment on above: Performed By: #### R ENAL ####[id number] [place] [address] Sodium [Moles/Vol] 143 mmol/L Normal 136 - 145 [facility] Comment on above: Performed By: #### R ENAL ####[id number] [place] [address] Urea nitrogen [Mass/Vol] 5 mg/dL Low 6 - 23 [facility] Comment on above: Performed By: #### R ENAL ####[id number] [place] [address] Rehab Note-attemptedon 09-24 Rehab Note-attempted Rehab: Info: Mode of Treatmentattempted Time IN15:00 Reason Treatment Not Performedpatient/family declined treatment; Pt declined participation in OT treatment stating she was on a very important call that she needed to take. Electronic Signatures: Silvana Marshall (OT) (Signed 24-Sep-2021 15:29) Authored: Info Last Updated: 24-Sep-2021 15:29 by Silvana Marshall (OT) Normal [facility] Rehab Note-physical therapyo n 09-24-2021 Rehab Note-physical [...] 24-Sep-2021 15:07 by Boone Broussard (PT) Normal [facility] Renal Function Panelon 09-24 Albumin BCP dye [...] 92 mg/dL 74 - 99 MG-Gas troen terology-[place] 6 I Work Phone: Phosphate [Mass/Vol] 3.3 mg/dL 2.5 - 4.9 MG-G astroen terology-[place] 6 [facility] Work Phone: Comment on above: The performance [...] >90 >90 MG-G astroen terology-[place] 6 [facility] Work Phone: Comment on above: CALCULATIONS OF IVY MATED GFR ARE PERFORMED USING THE 2020 CKD-EPI STUDY REFIT EQUATION WITHOUT THE RACE VARIABLE FOR THE IDMS-TRACEABLE CREATININE METHODS.https://jasn.asnjournals.org/content//ASN .9361953936 CBCon 09-23-2021 Erythrocyte distribution width (RBC) [Ratio] 13.1 % Normal 11.5 - 14.5 [facility] Comment on above: Performed By: #### C BC ####[id number] [place] [address] Hematocrit (Bld) [Volume fraction] 30.5 % Low 36.0 - 46.0 [facility] Comment on above: Performed By: #### C BC ####[id number] [place] [address] Hemoglobin (Bld) [Mass/Vol] 9.9 g/dL Low 12.0 - 16.0 [facility] Comment on above: Performed By: #### C BC ####[id number] [place] [address] MCHC (RBC) [Mass/Vol] 32.5 g/dL Normal 32.0 - 36.0 [facility] Comment on above: Performed By: #### C BC ####[id number] [place] [address] MCV (RBC) [Entitic vol] 92 fL Normal 80 - 100 [facility] Comment on above: Performed By: #### C BC ####[id number] [place] [address] NUCLEATED RBC 0.0 /100 WBC Normal 0.0-0.0 [facility] Comment on above: Performed By: #### C BC ####[id number] [place] [address] Platelets (Bld) [#/Vol] 244 10*3/uL Normal 150 - 450 [facility] Comment on above: Performed By: #### C BC ####[id number] [place] [address] RBC 3.33 x10E12/L Low 4.00 - 5.20 [facility] Comment on above: Performed By: #### C BC ####[id number] [place] [address] WBC (Bld) [#/Vol] 8.6 10*3/uL Normal 4.4 - 11.3 [facility] Comment on above: Performed By: #### C BC ####[id number] [place] [address] CBC AND DIFFERENTIALon 09-23 % AUTOMATED IMMATURE GRAN 0.4 % Normal 0.0 - 0.9 [facility] Comment on above: Result Comment: Jaleesa ture Granulocyte Count (IG) includes promyelocytes, myelocytes and metamyelocytes but does not include bands. Percent differential counts (%) should be interpreted in the context of the absolute cell counts (cells/L). Performed By: #### C BC #### [facility] [address] [place] [address] Basophils (Bld) [#/Vol] 0.03 10*3/uL Normal 0.00 - 0.10 [facility] Comment on above: Performed By: #### C BC #### [facility] [address] [place] [address] Basophils/100 WBC (Bld) 0.4 % Normal 0.0 - 2.0 [facility] Comment on above: Performed By: #### C BC #### [facility] [address] [place] [address] Eosinophils (Bld) [#/Vol] 0.27 10*3/uL Normal 0.00 - 0.70 [facility] Comment on above: Performed By: #### C BC #### [facility] [address] [place] [address] Eosinophils/100 WBC (Bld) 3.6 % Normal 0.0 - 6.0 [facility] Comment on above: Performed By: #### C BC #### [facility] [address] [place] [address] Erythrocyte distribution width (RBC) [Ratio] 13.2 % Normal 11.5 - 14.5 [facility] Comment on above: Performed By: #### C BC #### [facility] [address] [place] [address] Hematocrit (Bld) [Volume fraction] 30.9 % Low 36.0 - 46.0 [facility] Comment on above: Performed By: #### C BC #### [facility] [address] [place] [address] Hemoglobin (Bld) [Mass/Vol] 10.4 g/dL Low 12.0 - 16.0 [facility] Comment on above: Performed By: #### C BC #### [facility] [address] [place] [address] Lymphocytes (Bld) [#/Vol] 2.41 10*3/uL Normal 1.20 - 4.80 [facility] Comment on above: Performed By: #### C BC #### [facility] [address] [place] [address] Lymphocytes/100 WBC (Bld) 31.9 % Normal 13.0 - 44.0 [facility] Comment on above: Performed By: #### C BC #### [facility] [address] [place] [address] MCHC (RBC) [Mass/Vol] 33.7 g/dL Normal 32.0 - 36.0 [facility] Comment on above: Performed By: #### C BC #### [facility] [address] [place] [address] MCV (RBC) [Entitic vol] 91 fL Normal 80 - 100 [facility] Comment on above: Performed By: #### C BC #### [facility] [address] [place] [address] Monocytes (Bld) [#/Vol] 0.49 10*3/uL Normal 0.10 - 1.00 [facility] Comment on above: Performed By: #### C BC #### [facility] [address] [place] [address] Monocytes/100 WBC (Bld) 6.5 % Normal 2.0 - 10.0 [facility] Comment on above: Performed By: #### C BC #### [facility] [address] [place] [address] Neutrophils (Bld) [#/Vol] 4.32 10*3/uL Normal 1.20 - 7.70 [facility] Comment on above: Performed By: #### C BC #### [facility] [address] [place] [address] Neutrophils/100 WBC (Bld) 57.2 % Normal 40.0 - 80.0 [facility] Comment on above: Performed By: #### C BC #### [facility] [address] [place] [address] NUCLEATED RBC 0.0 /100 WBC Normal 0.0-0.0 [facility] Comment on above: Performed By: #### C BC #### [facility] [address] [place] [address] Platelets (Bld) [#/Vol] 228 10*3/uL Normal 150 - 450 [facility] Comment on above: Performed By: #### C BC #### [facility] [address] [place] [address] RBC 3.39 x10E12/L Low 4.00 - 5.20 [facility] Comment on above: Performed By: #### C BC #### [facility] [address] [place] [address] WBC (Bld) [#/Vol] 7.6 10*3/uL Normal 4.4 - 11.3 [facility] Comment on above: Performed By: #### C BC #### [facility] [address] [place] [address] Complete Blood Count + Diffe rentialon 09-23-2021 Basophils/100 WBC (Bld) 0.4 % 0.0 - 2.0 [facility]astro[facility]ology-[place] 6 [facility] Work Phone: Erythrocyte distribution width [...] WBC (Bld) 57.2 % See Below [facility]-Gastroen terology-[place]ndo [facility] 6 [facility] Work Phone: Comment on [...] 10*3/uL 4.4 - 11.3 [facility]-Gas troen terology-Ros[facility] 6 [facility] Work Phone: Complete Blood Count + Differential 0.03 {x10E9/L} See Below [facility]-Gastroen terology-[place] 6 [facility] Work Phone: Comment on above: Reference Range: 0.0 0 - 0.10 Complete Blood Count + Differential 0.27 {x10E9/L} See Below [facility]astroen terology-[facility] Work Phone: Comment on above: Reference Range: 0.0 0 - 0.70 Complete Blood Count + Differential 0.49 {x10E9/L} See Below [facility]-Gastroen terology-Rosendo [address] Work Phone: Comment on above: Reference Range: 0.1 0 - 1.00 Complete Blood Count + Differential 2.41 {x10E9/L} See Below [facility]-Gastroen terology-[facility]endo [address] Work Phone: Comment on above: Reference Range: 1.2 0 - 4.80 Complete Blood Count + Differential 4.32 {x10E9/L} See Below [facility]Gastroen terology-[facility] Work Phone: Comment on above: Reference Range: 1.2 0 - 7.70 Complete Blood Count + Differential 3.6 % 0.0 - 6.0 [facility]astroen terology-[facility] Work Phone: Complete Blood Count + Differential 0.4 % 0.0 - 0.9 [facility]-Gastroen terology-[place] 6 [facility] Work Phone: Comment on above: Immature Granulocyte [...] [Mass/Vol] 1.68 mg/dL Normal 1.60 - 2.40 [facility] Comment on above: Performed By: #### C #### [facility] [address] [place] [address] Magnesium, Serumon Magnesium [Mass/Vol] 1.68 mg/dL See [...] (Advanced Practice Nurse) done by Ambrocio Izaguirre ([facility]) Discharge - Partial Reconciliation: 23-Sep-2021 13:21 by: Ambrocio Izaguirre ([facility]) Discharge - Partial Reconciliation: 24-Sep-2021 10:12 by: Ambrocio Izaguirre ([facility]) Discharge - Partial Reconciliation: 30-Sep-2021 14:12 by: Concetta Shi ([facility]) Discharge - Partial Reconciliation: 30-Sep-2021 14:14 by: Concetta Shi ([facility]) Discharge - Reconciliation: 30-Sep-2021 14:24 by: Concetta Shi ([facility]) Discharge - Reset to Incomplete: 02-Oct-2021 15:36 by: Ambrocio Izaguirre ([facility]) Discharge - Reconciliation: 02-Oct-2021 15:40 by: Ambrocio Izaguirre ([facility]) Discharge - Reset to Incomplete: 02-Oct-2021 15:57 by: Ambrocio Izaguirre ([facility]) Discharge - Reconciliation: 02-Oct-2021 15:58 by: Ambrocio Izaguirre ([facility]) Home Medications EnteredHOME MEDICATIONS AT [...] not required (more content not included)... Normal [facility] PATH REVIEW-IMMUNOHEMATOLOGY on 09-23-2021 PATH REV-IMMUNOHEMOTOL LETA Normal [facility] Comment on above: Result Comment: By h [...] PATIENT. Performed By: #### A FPA3 #### [facility] [address] [place] [address] RENAL FUNCTION PANELon 09-23 Albumin [Mass/Vol] 2.7 g/dL Low 3.4 - 5.0 [facility] Comment on above: Performed By: #### V FPA3 #### [facility] [address] [place] [address] Anion gap [Moles/Vol] 10 mmol/L Normal 10 - 20 [facility] Comment on above: Performed By: #### V FPA3 #### [facility] [address] [place] [address] Calcium [Mass/Vol] 7.9 mg/dL Low 8.6 - 10.6 [facility] Comment on above: Performed By: #### V FPA3 #### [facility] [address] [place] [address] Chloride [Moles/Vol] 108 mmol/L High 98 - 107 [facility] Comment on above: Performed By: #### V FPA3 #### [facility] [address] [place] [address] Creatinine [Mass/Vol] 0.39 mg/dL Low 0.50 - 1.05 [facility] Comment on above: Performed By: #### V FPA3 #### [facility] [address] [place] [address] eGFR FEMALE >90 Normal >90 [facility] Comment on above: Result Comment: CALC ULATIONS OF ESTIMATED GFR ARE PERFORMED USING THE 2020 CKD-EPI STUDY REFIT EQUATION WITHOUT THE RACE VARIABLE FOR THE IDMS-TRACEABLE CREATININE METHODS. https://jasn.asnjournals.org/content/early/ASN.3077487 988 Performed By: #### V FPA3 #### [facility] [address] [place] [address] Glucose [Mass/Vol] 87 mg/dL Normal 74 - 99 [facility] Comment on above: Performed By: #### V FPA3 #### [facility] [address] [place] [address] HCO3 (Bld) [Moles/Vol] 29 mmol/L Normal 21 - 32 [facility] Comment on above: Performed By: #### V FPA3 #### [facility] [address] [place] [address] Phosphate [Mass/Vol] 2.7 mg/dL Normal 2.5 - 4.9 [facility] Comment on above: Result Comment: The performance characteristics of phosphorus testing in heparinized plasma have been validated by the individual laboratory site where testing is performed. Testing on heparinized plasma is not approved by the FDA; however, such approval is not necessary. Performed By: #### V FPA3 #### [place] [address] [place] [address] Potassium [Moles/Vol] 3.6 mmol/L Normal 3.5 - 5.3 [facility] Comment on above: Performed By: #### V FPA3 #### [facility] [address] [place] [address] Sodium [Moles/Vol] 143 mmol/L Normal 136 - 145 [facility] Comment on above: Performed By: #### V FPA3 #### [facility] [address] [place] [address] Urea nitrogen [Mass/Vol] 9 mg/dL Normal 6 - 23 [facility] Comment on above: Performed By: #### V FPA3 #### [facility] [address] [place] [address] Rehab Note-individual therap yon 09-23-2021 Rehab Note-individual therapy Rehab: Info: Disciplinephysical therapist Mode of Treatmentphysical therapy; individual therapy Time IN14:50 Time OUT15:29 Total Treatment [id number] Patient in ... at end of sessionbed, [...] sit to supine; rolling right Roll Left Hensley (Bed Mobility)verbal cues; maximum assist (25% patient effort); 1 person assist Roll Right Hensley (Bed Mobility)maximum assist (25% patient effort); verbal cues; 1 person assist Scoot/Bridge Hensley (Bed Mobility)verbal cues; maximum assist (25% patient effort); 2 person assist; boost HOB Zmuimd-uz-Qzd Hensley (Bed Mobility)verbal cues; maximum assist (25% patient effort); 1 person assist Mys-vn-Cfggwr Hensley (Bed Mobility)set up; verbal cues; maximum assist (25% patient effort); 1 person assist Assistive Device (Bed Mobility)bed rails; draw sheet Transfer Assessment/Interventionssit to stand transfer; stand to sit transfer Sit-Stand Hensley (Transfers)2 person assist; moderate assist (50% patient effort) Sit-Stand Assistive Device (Transfers)B arm-in-arm assist Stand-Sit Hensley (Transfers)2 person assist; moderate assist (50% patient [...] 23-Sep-2021 15:50 by Boone Broussard (PT) Normal [facility] Renal Function Panelon 09-23 Albumin BCP dye [...] RACE VARIABLE FOR THE IDMS-TRACEABLE CREATININE METHODS.https://jasn.asnjournals.org/content//ASN .8275708496 ANTIBODY IDENT.on 09-22-2021 ANTIBODY IDENT. Anti-E Normal [facility] Comment on above: Performed By: #### V FPA3 #### [facility] [address] [place] [address] CBCon 09-22-2021 Erythrocyte distribution width (RBC) [Ratio] 13.2 % Normal 11.5 - 14.5 [facility] Comment on above: Performed By: #### V FPA3 #### [place] [address] [place] [address] Hematocrit (Bld) [Volume fraction] 30.6 % Low 36.0 - 46.0 [facility] Comment on above: Performed By: #### V FPA3 #### [facility] [address] [place] [address] Hemoglobin (Bld) [Mass/Vol] 10.2 g/dL Low 12.0 - 16.0 [facility] Comment on above: Performed By: #### V FPA3 #### [facility] [address] [place] [address] MCHC (RBC) [Mass/Vol] 33.3 g/dL Normal 32.0 - 36.0 [facility] Comment on above: Performed By: #### V FPA3 #### [place] [address] [place] [address] MCV (RBC) [Entitic vol] 91 fL Normal 80 - 100 [facility] Comment on above: Performed By: #### V FPA3 #### [facility] [address] [place] [address] NUCLEATED RBC 0.0 /100 WBC Normal 0.0-0.0 [facility] Comment on above: Performed By: #### V FPA3 #### [facility] [address] [place] [address] Platelets (Bld) [#/Vol] 215 10*3/uL Normal 150 - 450 [facility] Comment on above: Performed By: #### V FPA3 #### [facility] [address] [place] [address] RBC 3.37 x10E12/L Low 4.00 - 5.20 [facility] Comment on above: Performed By: #### V FPA3 #### [facility] [address] [place] [address] WBC (Bld) [#/Vol] 9.6 10*3/uL Normal 4.4 - 11.3 [facility] Comment on above: Performed By: #### López FPA3 #### [facility] [address] [place] [address] CBC AND DIFFERENTIALon 09-22 % AUTOMATED IMMATURE GRAN 0.4 % Normal 0.0 - 0.9 [facility] Comment on above: Result Comment: Jaleesa ture Granulocyte Count (IG) includes promyelocytes, myelocytes and metamyelocytes but does not include bands. Percent differential counts (%) should be interpreted in the context of the absolute cell counts (cells/L). Performed By: #### C BCDF ####[id number] [place] [address] Basophils (Bld) [#/Vol] 0.02 10*3/uL Normal 0.00 - 0.10 [facility] Comment on above: Performed By: #### C BCDF ####[id number] [place] [address] Basophils/100 WBC (Bld) 0.2 % Normal 0.0 - 2.0 [facility] Comment on above: Performed By: #### C BCDF ####[id number] [place] [address] Eosinophils (Bld) [#/Vol] 0.04 10*3/uL Normal 0.00 - 0.70 [facility] Comment on above: Performed By: #### C BCDF ####[id number] [place] [address] Eosinophils/100 WBC (Bld) 0.4 % Normal 0.0 - 6.0 [facility] Comment on above: Performed By: #### C BCDF ####[id number] [place] [address] Erythrocyte distribution width (RBC) [Ratio] 13.2 % Normal 11.5 - 14.5 [facility] Comment on above: Performed By: #### C BCDF ####[id number] [place] [address] Hematocrit (Bld) [Volume fraction] 30.6 % Low 36.0 - 46.0 [facility] Comment on above: Performed By: #### C BCDF ####[id number] [place] [address] Hemoglobin (Bld) [Mass/Vol] 10.3 g/dL Low 12.0 - 16.0 [facility] Comment on above: Performed By: #### C BCDF ####[id number] [place] [address] Lymphocytes (Bld) [#/Vol] 2.19 10*3/uL Normal 1.20 - 4.80 [facility] Comment on above: Performed By: #### C BCDF ####[id number] [place] [address] Lymphocytes/100 WBC (Bld) 19.9 % Normal 13.0 - 44.0 [facility] Comment on above: Performed By: #### C BCDF ####[id number] [place] [address] MCHC (RBC) [Mass/Vol] 33.7 g/dL Normal 32.0 - 36.0 [facility] Comment on above: Performed By: #### C BCDF ####[id number] [place] [address] MCV (RBC) [Entitic vol] 90 fL Normal 80 - 100 [facility] Comment on above: Performed By: #### C BCDF ####[id number] [place] [address] Monocytes (Bld) [#/Vol] 0.71 10*3/uL Normal 0.10 - 1.00 [facility] Comment on above: Performed By: #### C BCDF ####[id number] [place] [address] Monocytes/100 WBC (Bld) 6.5 % Normal 2.0 - 10.0 [facility] Comment on above: Performed By: #### C BCDF ####[id number] [place] [address] Neutrophils (Bld) [#/Vol] 7.98 10*3/uL High 1.20 - 7.70 [facility] Comment on above: Performed By: #### C BCDF ####[id number] [place] [address] Neutrophils/100 WBC (Bld) 72.6 % Normal 40.0 - 80.0 [facility] Comment on above: Performed By: #### C BCDF ####[id number] [place] [address] NUCLEATED RBC 0.0 /100 WBC Normal 0.0-0.0 [facility] Comment on above: Performed By: #### C BCDF ####[id number] [place] [address] Platelets (Bld) [#/Vol] 242 10*3/uL Normal 150 - 450 [facility] Comment on above: Performed By: #### C BCDF ####[id number] [place] [address] RBC 3.39 x10E12/L Low 4.00 - 5.20 [facility] Comment on above: Performed By: #### C BCDF ####[id number] [place] [address] WBC (Bld) [#/Vol] 11.0 10*3/uL Normal 4.4 - 11.3 [facility] Comment on above: Performed By: #### C BCDF ####[id number] [place] [address] Complete Blood Count + Diffe rentialon 09-22-2021 [...] threshold See Below [facility]-Gastroen terology-[place] 6 [facility] Work Phone: Comment on above: Reference Range: 4.0 0 - 5.20 WBC (Bld) [#/Vol] 11.0 10*3/uL 4.4 - 11.3 MG-Ga stroen terology-[place] 6 [facility] Work Phone: Complete Blood Count + Differential 0.4 % 0.0 - 0.9 [facility]-Gastroen terology-[place] 6 [facility] Work Phone: Comment on above: Immature Granulocyte Count (IG) includes promyelocytes, myelocytes and metamyelocytes but does not include bands. Percent differential counts (%) should be interpreted in the context of the absolute cell counts (cells/L). Complete Blood Count + Differential 0.0 {/100_WBC} 0.0-0.0 [facility]-Gastroen terology-[place] 6 [facility] Work Phone: Complete Blood Count + Differential 0.02 {x10E9/L} See Below MG-Gastroen terology-[place] 6 [facility] Work Phone: Comment on above: Reference Range: 0.0 0 - 0.10 Complete Blood Count + Differential 0.04 {x10E9/L} See Below MG-Gastroen terology-[place] 6 [facility] Work Phone: Comment on above: Reference Range: 0.0 0 - 0.70 Complete Blood Count + Differential 0.71 {x10E9/L} See Below MG-Gastroen terology-[place] 6 [facility] Work Phone: Comment on above: Reference Range: 0.1 0 - 1.00 Complete Blood Count + Differential 2.19 {x10E9/L} See Below MG-Gastroen terology-[place] 6 [facility] Work Phone: Comment on above: [...] with at bedside. She is currently on SPECTROGRAPHIC ANALYST for pain, and reports being tired this [...] this time. Objective: Objective Information: T PRBPSpO2 [id number]/5792% Date/Time09/22 0:001/18 8:001/18 8:001/18 8:001/18 8:00 Range(36.3C [...] Fair. Medications: Continuous Medications ----- 1. HYDROmorphone SPECTROGRAPHIC ANALYST 25 mg/ NaCL 0.9% 50 mL: 2.6 mg/hr IV SPECTROGRAPHIC ANALYST 2. Sodium Chloride 0.9% Infusion: 1000 mL [...] from Suboxone (more content not included)... Normal [facility] Daily Progress Note-Nuha stearns 09-22-2021 Daily Progress Note-Neurosurgery Service: Neurosurgery Subjective Data: MORALES LEE is a 46 year old Female who is Hospital Day # 8 and POD #1 for posterior L4-L5 decompression;posterior L4-L5 arthrodesis. Objective Data: Objective Information: T PRBPSpO2 [id number]/5895% Date/Time09/22 0:001/18 0:001/18 0:001/18 0:001/18 0:00 Range(36.2C - 36.8C ) (82 - 109 ) (12 - 20 ) (85 - 132 )/ (49 - 89 ) (94% - 100% ) As of 21-Sep-2021 17:00:00, patient is on 4 L/min of oxygen via nasal cannula. Pain reported at 09/21 16:33: 5 = Moderate ---- Intake and Output ----- Mn/Dy/Year TimeIntakeOutputNet Sep 20, 2021 10:00 [id number] Sep 20, 2021 6:00 [id number] The Intake and Output Totals for the last 24 hours are: IntakeOutputNet [id number] Physical Exam by System: Neurological: A&Ox3 RUE [...] Chronic pain recs- intra-op ketamine, meloxicam post-op, SPECTROGRAPHIC ANALYST until good PT eval, Suboxone as OP COWS psych recs alvares for retention SCD's, [facility] Attestation: Note Completion: I am a: Resident/Fellow [...] the note. I personally evaluated the patient [id number] Electronic Signatures: Fidel Maciel (Resident)) (Signed 22-Sep-2021 00:35) Authored: Service, Subjective Data, Objective Data, Assessment and Plan, Note Completion Lex Frederick) (Signed 22-Sep-2021 10:31) Authored: Note Completion Co-Signer: Service, Subjective Data, Objective Data, Assessment and Plan, Note Completion Last Updated: 22-Sep-2021 10:31 by Lex Frederick) Normal [facility] Discharge [id number] -18-2 022 Discharge Profile2 Discharge Orders: Anticipated Discharge Date: Anticipated Discharge [id number] Problem List: Additional Dx: Spinal stenosis of [...] Please call your Neurosurgeon's office (Dr. Frederick [phone]) if you have any questions. -If you [...] or twist. Instead, bend at knees to molded goods spot picker objects. Wound Care: Inspect your incision [...] taking Acetamin (more content not included)... Normal [facility] LACTATEon 09-22-2021 Lactate [Moles/Vol] 0.8 mmol/L Normal 0.4 - 2.0 [facility] Comment on above: Result Comment: Trina puncture immediately after or during the administration of Metamizole may lead to falsely low results. Testing should be performed immediately prior to Metamizole dosing. Performed By: #### C BC #### [facility] [address] [place] [address] Laboratory - Hematology and Cell countson 09-22-2021 Erythrocyte distribution width (RBC) [Ratio] 13.2 % See Below MG-Gastroen terology-Rosendo moura 6 [facility] Work Phone: Comment on above: [...] safety. Time IN10:50 Time OUT11:40 Total Treatment [id number] Patient in ... at end of sessionbed, 3 railings up; alarm on Communicated with ... at end of sessionbedside nurse Patient Effortgood Symptoms Noted During/After Treatmentfatigue; increased pain Patient Profile Reviewedyes Onset of Illness/Injury or Date of [id number] Reason for Referral-09/18/21: s/p exploration of spinal [...] EOB sitting. Pertinent History of Current Functional [id number] y/o with hx of HTN, C6-7 ACDF, [...] TubesIV; triple lumen; telemetry; urethral catheter indwelling; SPECTROGRAPHIC ANALYST pump, DAVOL drain, wound vac O2 Deliverynasal cannula; 4L Pre Treatment Patient Positionsupine Pre Treatment Blood Pressure Lxqomdqe94 mmHg Pre Treatment Diastolic (mm Hg)46 mmHg Pre Treatment Heart Rate (beats/min)67 Pre Treatment Respiratory Rate (breaths/min)19 Pre Treatment SpO2 (%)96 % Pre Treatment Oxygen Deliverysupplemental O2 Pre Treatment CommentsMAP 56 During Treatment Patient Positionsitting During Treatment Blood Pressure Ysphjtyb10 mmHg During Treatment Diastolic (mm Hg)77 mmHg [...] to sit; sit to supine Roll Left Hensley (Bed Mobility)set up; verbal cues; 2 person assist; Pt required assist to bend BLE at (more content not included)... Normal [facility] PATH REVIEW-IMMUNOHEMATOLOGY on 09-22-2021 PATH REV-IMMUNOHEMOTOL ZURDO Normal [facility] Comment on above: Result Comment: By h [...] PATIENT. Performed By: #### C BC #### [facility] [address] [place] [address] PT Evaluation [id number] t - co-treatment with OT to maxion 09-22-2021 PT Evaluation [id number] - co-treatment with OT to [facility] Rehab: Info: Mode of Treatmentphysical therapy; co-treatment; co-treatment with OT to maximize safety, mobility and ADL participation Time IN10:50 Time OUT11:40 Total Treatment [id number] Patient in ... at end of sessionbed, 3 railings up; alarm on Communicated with ... at end of sessionbedside nurse Patient Effortgood Symptoms Noted During/After Treatmentfatigue; increased pain Patient Profile Reviewedyes Onset of Illness/Injury or Date of [id number] Reason for Referral-09/18/21: s/p exploration of spinal [...] TubesIV; triple lumen; telemetry; urethral catheter indwelling; SPECTROGRAPHIC ANALYST pump, DAVOL drain, wound vac O2 Deliverynasal cannula; 4L Pre Treatment Patient Positionsupine Pre Treatment Blood Pressure Abkiyxwr38 mmHg Pre Treatment Diastolic (mm Hg)46 mmHg Pre Treatment Heart Rate (beats/min)67 Pre Treatment SpO2 (%)96 % Pre Treatment Oxygen Deliverysupplemental O2 During Treatment Patient Positionsitting During Treatment Blood Pressure Xqdbkqga23 mmHg During Treatment Diastolic (mm Hg)77 mmHg [...] sit to supine; rolling right Roll Left Hensley (Bed Mobility)verbal cues; 2 person assist; Pt required assist to bend BLE at knees and to initiate turn at shoulders and hips, verbal cues for grasp on bed rail, technique, direction follow, and encouragement.; maximum assist (25% patient effort) Roll Right Hensley (Bed Mobility)2 person assist; maximum assist (25% patient effort); verbal cues Scoot/Bridge Hensley (Bed Mobility)verbal cues; maximum assist (25% patient effort); 2 person assist; boost HOB Jtunre-ve-Phs Hensley (Bed Mobility)verbal cues; maximum assist (25% patient effort); 1 person assist Ehs-cw-Xvcbqq Hensley (Bed Mobility)set up; verbal cues; maximum assist (25% patient effort); 1 person assist Assistive Device (Bed Mobility)bed rails; draw sheet Impairments Impacting Function (Mobility)balance; cognition; endurance/activity tolerance; pain; strength; postural/trunk control; motor control Motor: Sitting, Static (Balance)SBA Sitting, Dynamic (Balance)CGA Sgr-ct-Dvhbh (Balance)MADELIN this visit. Pt hypotensive Sensory: Pre-Treatment Pain Rating7/10 Post-Treatment Pain Rating7/10 Comment, Pre/Post Treatment PainPt reported pain throughout buttocks and back, utilized SPECTROGRAPHIC ANALYST pump as needed. Pain LimitationFunctional mobility limited due pain; ADLs/IADLs limited due to pain; Participation limited by pain; RN or team was notified of limitations due to p (more content not included)... Normal [facility] RENAL FUNCTION PANELon 09-22 Albumin [Mass/Vol] 2.7 g/dL Low 3.4 - 5.0 [facility] Comment on above: Performed By: #### C BC #### [facility] [address] [place] [address] Anion gap [Moles/Vol] 10 mmol/L Normal 10 - 20 [facility] Comment on above: Performed By: #### C BC #### [facility] [address] [place] [address] Calcium [Mass/Vol] 7.8 mg/dL Low 8.6 - 10.6 [facility] Comment on above: Performed By: #### C BC #### [facility] [address] [place] [address] Chloride [Moles/Vol] 105 mmol/L Normal 98 - 107 [facility] Comment on above: Performed By: #### C BC #### [facility] [address] [place] [address] Creatinine [Mass/Vol] 0.49 mg/dL Low 0.50 - 1.05 [facility] Comment on above: Performed By: #### C BC #### [facility] [address] [place] [address] eGFR FEMALE >90 Normal >90 [facility] Comment on above: Result Comment: CALC ULATIONS OF ESTIMATED GFR ARE PERFORMED USING THE 2020 CKD-EPI STUDY REFIT EQUATION WITHOUT THE RACE VARIABLE FOR THE IDMS-TRACEABLE CREATININE METHODS. https://jasn.asnjournals.org/content/early/ASN.7329353 988 Performed By: #### C BC #### [facility] [address] [place] [address] Glucose [Mass/Vol] 93 mg/dL Normal 74 - 99 [facility] Comment on above: Performed By: #### C BC #### [facility] [address] [place] [address] HCO3 (Bld) [Moles/Vol] 29 mmol/L Normal 21 - 32 [facility] Comment on above: Performed By: #### C BC #### [facility] [address] [place] [address] Phosphate [Mass/Vol] 2.4 mg/dL Low 2.5 - 4.9 [facility] Comment on above: Result Comment: The performance characteristics of phosphorus testing in heparinized plasma have been validated by the individual laboratory site where testing is performed. Testing on heparinized plasma is not approved by the FDA; however, such approval is not necessary. Performed By: #### C BC #### [facility] [address] [place] [address] Potassium [Moles/Vol] 4.3 mmol/L Normal 3.5 - 5.3 [facility] Comment on above: Performed By: #### C BC #### [facility] [address] [place] [address] Sodium [Moles/Vol] 140 mmol/L Normal 136 - 145 [facility] Comment on above: Performed By: #### C BC #### [facility] [address] [place] [address] Urea nitrogen [Mass/Vol] 9 mg/dL Normal 6 - 23 [facility] Comment on above: Performed By: #### C BC #### [facility] [address] [place] [address] Renal Function Panelon 09-22 Albumin BCP dye [...] RACE VARIABLE FOR THE IDMS-TRACEABLE CREATININE METHODS.https://jasn.asnjournals.org/content//ASN .8753868290 UA MICROSCOPICon 09-22-2021 RBC 6 /HPF Abnormal 0-5 [facility] Comment on above: Performed By: #### C BC #### [facility] [address] [place] [address] SQUAMOUS EPITH. CELLS 1 /HPF Normal [facility] Comment on above: Performed By: #### C BC #### [facility] [address] [place] [address] WBC 8 /HPF Abnormal 0-5 [facility] Comment on above: Performed By: #### C BC #### [place] [address] [place] [address] URINALYSIS WITH CULTURE IF I NDICATEDon 09-22-2021 Appearance (U) CLEAR Normal CLEAR [facility] Comment on above: Performed By: #### U ARFX ####[id number] [place] [address] Bilirubin Ql (U) Negative Normal NEGATIVE [facility] Comment on above: Performed By: #### U ARFX ####[id number] [place] [address] Color (U) MIRANDA Normal STRAW,YELLO W [facility] Comment on above: Performed By: #### U ARFX ####[id number] [place] [address] Glucose Ql (U) Negative Normal NEGATIVE [facility] Comment on above: Performed By: #### U ARFX ####[id number] [place] [address] Hemoglobin Ql (U) Negative Normal NEGATIVE [facility] Comment on above: Performed By: #### U ARFX ####[id number] [place] [address] Ketones Ql (U) 20 (1+) Abnormal NEGATIVE [facility] Comment on above: Performed By: #### U ARFX ####[id number] [place] [address] Leukocyte esterase Test strip Ql (U) Negative Normal NEGATIVE [facility] Comment on above: Performed By: #### U ARFX ####[id number] [place] [address] Nitrite Ql (U) Negative Normal NEGATIVE [facility] Comment on above: Performed By: #### U ARFX ####[id number] [place] [address] pH (U) 5.0 [pH] Normal 5.0 - 8.0 [facility] Comment on above: Performed By: #### U ARFX ####[id number] [place] [address] Protein Ql (U) 30 (1+) Abnormal NEGATIVE [facility] Comment on above: Performed By: #### U ARFX ####[id number] [place] [address] Specific gravity (U) [Rel density] 1.040 High 1.005 - 1.035 [facility] Comment on above: Performed By: #### U ARFX ####[id number] [place] [address] Urobilinogen (U) [Mass/Vol] 2.0 mg/dL High 0.0 - 1.9 [facility] Comment on above: Result Comment: Due to [...] positive urobilinogen. Performed By: #### U ARFX ####[id number] [id number] Lab Specimen Source Normal [facility] Comment on above: Performed By: #### U ARFX ####[id number] [place] [address] Performed By: #### C BC #### [facility] [address] [place] [address] Color (U) MIRANDA See Below MG-Gastroen terology-Rosendo [...] CULTURE,BACTERIALon URINE CULTURE,BACTERIAL PATIENT: MORALES LEE LOCATION: [place] [address] BILL#: [id number] : 71 AGE: SEX: F ORDERED BY: AMBROCIO IZAGUIRRE SOURCE: URINE COLLECTED: 09/22/21 12:59 ANTIBIOTICS AT [facility].: RECEIVED : 09/22/21 14:59 SITE: R E S U L T S URINE CULTURE,BACTERIAL FINAL 09/23/21 09:04 NO SIGNIFICANT GROWTH. Normal [facility] Comment on above: Performed By: #### C BC #### [facility] [address] [place] [address] Urinalysis, Microscopicon Urinalysis, Microscopic 1 {/HPF} [facility] 6 I Work Phone: Urinalysis, Microscopic 6 {/HPF} Abnormal 0-5 [facility] 6 I Work Phone: Urinalysis, Microscopic 8 {/HPF} Abnormal 0-5 [facility] 6 I Work Phone: Comment on above: SOURCE: CBCon 09-21-2021 Erythrocyte distribution width (RBC) [Ratio] 13.1 % Normal 11.5 - 14.5 [facility] Comment on above: Performed By: #### R ENAL #### [facility] [address] [place] [address] Hematocrit (Bld) [Volume fraction] 34.5 % Low 36.0 - 46.0 [facility] Comment on above: Performed By: #### R ENAL #### [facility] [address] [place] [address] Hemoglobin (Bld) [Mass/Vol] 11.4 g/dL Low 12.0 - 16.0 [facility] Comment on above: Performed By: #### R ENAL #### [facility] [address] [place] [address] MCHC (RBC) [Mass/Vol] 33.0 g/dL Normal 32.0 - 36.0 [facility] Comment on above: Performed By: #### R ENAL #### [facility] [address] [place] [address] MCV (RBC) [Entitic vol] 91 fL Normal 80 - 100 [facility] Comment on above: Performed By: #### R ENAL #### [facility] [address] [place] [address] NUCLEATED RBC 0.0 /100 WBC Normal 0.0-0.0 [facility] Comment on above: Performed By: #### R ENAL #### [facility] [address] [place] [address] Platelets (Bld) [#/Vol] 269 10*3/uL Normal 150 - 450 [facility] Comment on above: Performed By: #### R ENAL #### [facility] [address] [place] [address] RBC 3.81 x10E12/L Low 4.00 - 5.20 [facility] Comment on above: Performed By: #### R ENAL #### [facility] [address] [place] [address] WBC (Bld) [#/Vol] 14.6 10*3/uL High 4.4 - 11.3 [facility] Comment on above: Performed By: #### R ENAL #### [facility] [address] [place] [address] Erythrocyte distribution width (RBC) [Ratio] 13.2 % Normal 11.5 - 14.5 [facility] Comment on above: Performed By: #### R ENAL #### [facility] [address] [place] [address] Hematocrit (Bld) [Volume fraction] 35.8 % Low 36.0 - 46.0 [facility] Comment on above: Performed By: #### R ENAL #### [facility] [address] [place] [address] Hemoglobin (Bld) [Mass/Vol] 11.9 g/dL Low 12.0 - 16.0 [facility] Comment on above: Performed By: #### R ENAL #### [facility] [address] [place] [address] MCHC (RBC) [Mass/Vol] 33.2 g/dL Normal 32.0 - 36.0 [facility] Comment on above: Performed By: #### R ENAL #### [facility] [address] [place] [address] MCV (RBC) [Entitic vol] 91 fL Normal 80 - 100 [facility] Comment on above: Performed By: #### R ENAL #### [facility] [address] [place] [address] NUCLEATED RBC 0.0 /100 WBC Normal 0.0-0.0 [facility] Comment on above: Performed By: #### R ENAL #### [facility] [address] [place] [address] Platelets (Bld) [#/Vol] 215 10*3/uL Normal 150 - 450 [facility] Comment on above: Performed By: #### R ENAL #### [facility] [address] [place] [address] RBC 3.93 x10E12/L Low 4.00 - 5.20 [facility] Comment on above: Performed By: #### R ENAL #### [facility] [address] [place] [address] WBC (Bld) [#/Vol] 14.8 10*3/uL High 4.4 - 11.3 [facility] Comment on above: Performed By: #### R ENAL #### [facility] [address] [place] [address] Daily Progress Note-Nuha stearns 09-21-2021 Daily Progress Note-Neurosurgery Service: Neurosurgery Subjective Data: MORALES LEE is a 46 year old Female who is Hospital Day # 7 and POD #3 for 1. Exploration of spinal fusion;2. Reduction of L4/5 dislocation;2. L5-pelvis instrumented fusion with posterolateral arthrodesis;4. Extension of instrumentation with multiple kwame construct and side connectors. Objective Data: Objective Information: T PRBPSpO2 Value37.110012140/8495% Date/Time09/20 15: 4: 4: 4: 4:00 Range(36.9C [...] ----- Mn/Dy/Year TimeIntakeOutputNet Sep 19, 2021 10:00 [id number] Sep 19, 2021 6:00 [id number] The Intake and Output Totals for the last 24 hours are: IntakeOutputNet [id number] Physical Exam by System: Neurological: A&Ox3 RUE [...] Chronic pain recs- intra-op ketamine, meloxicam post-op, SPECTROGRAPHIC ANALYST until good PT eval, Suboxone as OP [...] the following: I personally evaluated the patient [id number] Comments/ Additional Findings The patient has been [...] 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 Normal [facility] Laboratory - Blood bankon ABO group Nom (Bld) O MG-Ga stroen [facility] 6 I Work Phone: Blood group antibody investigation (P/RBC) [Interp] Anti-E MG-Gastroen [facility] Work Phone: Blood group [...] [facility]-Gastroen terology-[place] [facility] 6 I Work Phone: [phone] Erythrocyte distribution width (RBC) [Ratio] 13.2 % See Below [facility] 6 I Work Phone: [phone] Comment on above: Reference Range: 11. [...] lumbar spine September 18, 2021 ACCESSION NUMBER(S): [id number]; [id number] ORDERING CLINICIAN: DEVANTE STARKS TECHNIQUE: Sagittal axial [...] Electronically signed by: NATALIA WALL DO Normal [facility] NR MRI T-SPINE WOon 09-21-19 22 NR MRI T-SPINE WO Patient Name: MORALES LEE STUDY: MRI T-SPINE WO; MRI L-SPINE WO; 09/20/2021 10:40 pm; 09/20/2021 10:42 pm INDICATION: postop foot weakness, Lie Flat: Yes, Pre Med: No . COMPARISON: MRI December 24, [address] of the lumbar spine September 18, 2021 ACCESSION NUMBER(S): [id number]; [id number] ORDERING CLINICIAN: DEVANTE STARKS TECHNIQUE: Sagittal axial [...] S1-2. Electronically signed by: NATALIA WALL, Normal [facility] No Panel Informationon 09-21 0.0 {/100_WBC} 0.0-0.0 [...] Preop Checklist Preop Checklist: Preop Checklist: Arrival [id number] Arrival Time11:00 Procedure Typere-exploration of spine Temperature C36.2 degrees C Temperature F97.1 degrees F Heart Rate91 beats per minute Respiratory Rate18 breath per minute Blood Pressure Frstvrxw149 mm/Hg Blood Pressure Xbrflzmwb23 mm/Hg COVID 19 Results in Last 7 [...] 21-Sep-2021 11:17 by Linh Buchanan (RN) Normal [facility] REQUEST-LEUKOREDUCED RED ANJU LSon 09-21-2021 REQUEST-LEUKOREDUCED RED CELLS ORDER RECD Normal [facility] Comment on above: Performed By: #### A FPA3 #### [facility] [address] [place] [id number] TYPE + SCREENon 09-21-2021 ABO TYPE O Normal [facility] Comment on above: Performed By: #### A FPA3 #### [facility] [address] [place] [address] RH TYPE Positive Normal [facility] Comment on above: Performed By: #### A FPA3 #### [facility] [address] [place] [address] ABO TYPE Canceled Normal [facility] Comment on above: Order Comment: VENECIA ESPINO, 09/21/2021 05:08TEST TYPE + SCREEN WAS CANCELLED, 09/21/2021 05:06 NO PHLEB ID ON TUBE. Result Comment: CALL ED MERA ESPINO, 09/21/2021 05:08 Performed By: #### A FPA3 #### [facility] [address] [place] [address] RH TYPE Canceled Normal [facility] Comment on above: Order Comment: VENECIA ESPINO, 09/21/2021 05:08TEST TYPE + SCREEN WAS CANCELLED, 09/21/2021 05:06 NO PHLEB ID ON TUBE. Result Comment: CALL ED MERA ESPINO, 09/21/2021 05:08 Performed By: #### A FPA3 #### [facility] [address] [place] [address] CBCon 09-20-2021 Erythrocyte distribution width (RBC) [Ratio] 13.2 % Normal 11.5 - 14.5 [facility] Comment on above: Performed By: #### C BC #### [facility] [address] [place] [address] Hematocrit (Bld) [Volume fraction] 30.8 % Low 36.0 - 46.0 [facility] Comment on above: Performed By: #### C BC #### [facility] [address] [place] [address] Hemoglobin (Bld) [Mass/Vol] 9.8 g/dL Low 12.0 - 16.0 [facility] Comment on above: Performed By: #### C BC #### [facility] [address] [place] [address] MCHC (RBC) [Mass/Vol] 31.8 g/dL Low 32.0 - 36.0 [facility] Comment on above: Performed By: #### C BC #### [facility] [address] [place] [address] MCV (RBC) [Entitic vol] 93 fL Normal 80 - 100 [facility] Comment on above: Performed By: #### C BC #### [facility] [address] [place] [address] NUCLEATED RBC 0.0 /100 WBC Normal 0.0-0.0 [facility] Comment on above: Performed By: #### C BC #### [facility] [address] [place] [address] Platelets (Bld) [#/Vol] 224 10*3/uL Normal 150 - 450 [facility] Comment on above: Performed By: #### C BC #### [facility] [address] [place] [address] RBC 3.32 x10E12/L Low 4.00 - 5.20 [facility] Comment on above: Performed By: #### C BC #### [facility] [address] [place] [address] WBC (Bld) [#/Vol] 12.1 10*3/uL High 4.4 - 11.3 [facility] Comment on above: Performed By: #### C #### [facility] [address] [place] [address] Daily Progress Note-Nuha jinny 09-20-2021 Daily Progress Note-Neurosurgery Service: Neurosurgery Subjective Data: MORALES LEE is a 46 year old Female who is Hospital Day # 6 and POD #2 for 1. Exploration of spinal fusion;2. Reduction of L4/5 dislocation;2. L5-pelvis instrumented fusion with posterolateral arthrodesis;4. Extension of instrumentation with multiple kwame construct and side connectors. Objective Data: Objective Information: T PRBPSpO2 Value36.9652739/5095% Date/Time09/19 16: 1: 16: 1: 1:34 Range(36.7C - 36.7C ) (84 - 110 ) (18 - 18 ) (82 - 118 )/ (50 - 97 ) (94% - 97% ) As of 19-Sep-2021 08:00:00, patient is on 2 L/min of oxygen via nasal cannula. ---- Intake and Output ----- Mn/Dy/Year TimeIntakeOutputNet Sep 18, 2021 10:00 [id number] The Intake and Output Totals for the [...] chronic pain recs- intra-op ketamine, meloxicam post-op, SPECTROGRAPHIC ANALYST until good PT eval, Suboxone as OP [...] Updated: 21-Sep-2021 11:28 by Perez Carlisle) Normal [facility] Laboratory - Hematology and Cell countson 09-20-2021 [...] 20-Sep-2021 12:25 by Carole Carlos (OT) Normal [facility] PT Evaluation v2-attemptedon 09-20-2021 PT Evaluation v2-attempted Rehab: Info: Mode of Treatmentattempted Time IN12:00 Evaluation Not PerformedPer RN pt not appropriate for therapy, pt continues to have low BP and plan to receive blood, will hold and reattempt as appropriate Electronic Signatures: Kaykay Yoo (PT) (Signed 20-Sep-2021 12:42) Authored: Info Last Updated: 20-Sep-2021 12:42 by Kaykay Yoo (PT) Normal [facility] REQUEST-LEUKOREDUCED RED ANJU LSon 09-20-2021 REQUEST-LEUKOREDUCED RED CELLS ORDER RECD Normal [facility] Comment on above: Performed By: #### R ENAL #### [facility] [address] [place] [address] CBCon 09-19-2021 Erythrocyte distribution width (RBC) [Ratio] 12.4 % Normal 11.5 - 14.5 [facility] Comment on above: Performed By: #### R ENAL #### [facility] [address] [place] [address] Hematocrit (Bld) [Volume fraction] 38.3 % Normal 36.0 - 46.0 [facility] Comment on above: Performed By: #### R ENAL #### [facility] [address] [place] [address] Hemoglobin (Bld) [Mass/Vol] 13.4 g/dL Normal 12.0 - 16.0 [facility] Comment on above: Performed By: #### R ENAL #### [facility] [address] [place] [address] MCHC (RBC) [Mass/Vol] 35.0 g/dL Normal 32.0 - 36.0 [facility] Comment on above: Performed By: #### R ENAL #### [facility] [address] [place] [address] MCV (RBC) [Entitic vol] 85 fL Normal 80 - 100 [facility] Comment on above: Performed By: #### R ENAL #### [facility] [address] [place] [address] NUCLEATED RBC 0.0 /100 WBC Normal 0.0-0.0 [facility] Comment on above: Performed By: #### R ENAL #### [facility] [address] [place] [address] Platelets (Bld) [#/Vol] 326 10*3/uL Normal 150 - 450 [facility] Comment on above: Performed By: #### R ENAL #### [facility] [address] [place] [address] RBC 4.51 x10E12/L Normal 4.00 - 5.20 [facility] Comment on above: Performed By: #### R ENAL #### [facility] [address] [place] [address] WBC (Bld) [#/Vol] 20.5 10*3/uL High 4.4 - 11.3 [facility] Comment on above: Performed By: #### R ENAL #### [facility] [address] [place] [address] CBC AND DIFFERENTIALon 09-19 % AUTOMATED IMMATURE GRAN 0.6 % Normal 0.0 - 0.9 [facility] Comment on above: Result Comment: Jaleesa ture Granulocyte Count (IG) includes promyelocytes, myelocytes and metamyelocytes but does not include bands. Percent differential counts (%) should be interpreted in the context of the absolute cell counts (cells/L). Performed By: #### V FPA3 #### [facility] [address] [place] [address] Basophils (Bld) [#/Vol] 0.03 10*3/uL Normal 0.00 - 0.10 [facility] Comment on above: Performed By: #### V FPA3 #### [facility] [address] [place] [address] Basophils/100 WBC (Bld) 0.1 % Normal 0.0 - 2.0 [facility] Comment on above: Performed By: #### V FPA3 #### [facility] [address] [place] [address] Eosinophils (Bld) [#/Vol] 0.01 10*3/uL Normal 0.00 - 0.70 [facility] Comment on above: Performed By: #### V FPA3 #### [facility] [address] [place] [address] Eosinophils/100 WBC (Bld) 0.0 % Normal 0.0 - 6.0 [facility] Comment on above: Performed By: #### V FPA3 #### [facility] [address] [place] [address] Erythrocyte distribution width (RBC) [Ratio] 12.9 % Normal 11.5 - 14.5 [facility] Comment on above: Performed By: #### V FPA3 #### [facility] [address] [place] [address] Hematocrit (Bld) [Volume fraction] 38.3 % Normal 36.0 - 46.0 [facility] Comment on above: Performed By: #### V FPA3 #### [facility] [address] [place] [address] Hemoglobin (Bld) [Mass/Vol] 12.7 g/dL Normal 12.0 - 16.0 [facility] Comment on above: Performed By: #### V FPA3 #### [facility] [address] [place] [address] Lymphocytes (Bld) [#/Vol] 2.89 10*3/uL Normal 1.20 - 4.80 [facility] Comment on above: Performed By: #### V FPA3 #### [facility] [address] [place] [address] Lymphocytes/100 WBC (Bld) 13.5 % Normal 13.0 - 44.0 [facility] Comment on above: Performed By: #### V FPA3 #### [facility] [address] [place] [address] MCHC (RBC) [Mass/Vol] 33.2 g/dL Normal 32.0 - 36.0 [facility] Comment on above: Performed By: #### V FPA3 #### [facility] [address] [place] [address] MCV (RBC) [Entitic vol] 89 fL Normal 80 - 100 [facility] Comment on above: Performed By: #### V FPA3 #### [facility] [address] [place] [address] Monocytes (Bld) [#/Vol] 1.23 10*3/uL High 0.10 - 1.00 [facility] Comment on above: Performed By: #### V FPA3 #### [facility] [address] [place] [address] Monocytes/100 WBC (Bld) 5.7 % Normal 2.0 - 10.0 [facility] Comment on above: Performed By: #### V FPA3 #### [facility] [address] [place] [address] Neutrophils (Bld) [#/Vol] 17.16 10*3/uL High 1.20 - 7.70 [facility] Comment on above: Performed By: #### V FPA3 #### [facility] [address] [place] [address] Neutrophils/100 WBC (Bld) 80.1 % Normal 40.0 - 80.0 [facility] Comment on above: Performed By: #### V FPA3 #### [facility] [address] [place] [address] NUCLEATED RBC 0.0 /100 WBC Normal 0.0-0.0 [facility] Comment on above: Performed By: #### V FPA3 #### [facility] [address] [place] [address] Platelets (Bld) [#/Vol] 401 10*3/uL Normal 150 - 450 [facility] Comment on above: Performed By: #### V FPA3 #### [facility] [address] [place] [address] RBC 4.28 x10E12/L Normal 4.00 - 5.20 [facility] Comment on above: Performed By: #### V FPA3 #### [facility] [address] [place] [address] WBC (Bld) [#/Vol] 21.5 10*3/uL High 4.4 - 11.3 [facility] Comment on above: Performed By: #### V FPA3 #### [facility] [address] [place] [address] COAGULATION SCREENon 022 aPTT Coag (Bld) [Time] 29 s Normal 26 - 39 [facility] Comment on above: Result Comment: Note new reference range as of 08/04/2021 at 10:00am. Performed By: #### R ENAL #### [facility] [address] [place] [address] PT Coag (PPP) [Time] 11.5 s Normal 9.8 - 13.4 [facility] Comment on above: Result Comment: Note new reference range as of 08/04/2021 at 10:00am. Performed By: #### R ENAL #### [facility] [address] [place] [address] PT, INR 1.0 Normal 0.9 - 1.1 [facility] Comment on above: Performed By: #### R ENAL #### [facility] [address] [place] [address] Complete Blood Count + Diffe vidya 09-19-2021 [...] connectors. Objective Data: Objective Information: T PRBPSpO2 Value36.85597808/8596% Date/Time09/18 17: 17: 17: 17: 17:40 Range(36.4C [...] ----- Mn/Dy/Year TimeIntakeOutputNet Sep 17, 2021 10:00 [id number] The Intake and Output Totals for the last 24 hours are: IntakeOutputNet [id number] Physical Exam by System: Neurological: A&Ox3 RUE D5, B5, T5, HG5, IO5 LUE D4+, B4+, T4+, HG4+, IO5 RLE HF 4+, KE4+, PF5, DF5 (pain limited) LLE HF 4-, KE4-, PF4, DF5 Recent Lab Results: Results: Recent Arterial Blood Gas Results 09/18/2021 11:48 [id number] 24 h range: ( 219 - 224 ) pH7.44 24 h range: ( 7.44 - 7.45 ) rPW252 24 h range: ( 37 - 40 ) BF9876 24 h range: ( 100 - 100 ) Base Excess2.8 24 h range: ( 1.8 - 2.8 ) Diqndczrque28.2 24 h range: ( 25.7 - 27.2 [...] the note. I personally evaluated the patient [id number] Comments/ Additional Findings Patients postoperative CT scan [...] Assessment an (more content not included)... Normal [facility] Laboratory - Coagulationon 0 09-19-2021 aPTT Coag (PPP) [Time] 29 s 26 - 39 [facility]-Gastroen terology-[facility] lwPicPrizes 6 [email or web address] Work Phone: Comment on above: Note new reference esther quiñones as of 08/04/2021 at 10:00am. INR Coag (PPP) [Relative time] 1.0 {INR} 0.9 - 1.1 [facility]-Gastroen terology-[facility] lwell 6 [email or web address] Work Phone: PT Coag (PPP) [Time] 11.5 s 9.8 - 13.4 MG-G astroen terology-Rosendo moura 6 [facility] Work Phone: Comment on above: Note new reference esther quiñones as of 08/04/2021 at 10:00am. MAGNESIUMon 09-19-2021 Magnesium [Mass/Vol] 1.59 mg/dL Low 1.60 - 2.40 [facility] Comment on above: Performed By: #### R ENAL #### [facility] [address] [place] [address] PT Evaluation v2-attemptedon 09-19-2021 PT Evaluation v2-attempted Rehab: Info: Mode of Treatmentattempted Time IN11:37 Time OUT11:50 Total Treatment Tivmgcw59 Evaluation Not PerformedHistory obtained, BP assessed in supine 79/54mmHg, RN notified and redone with 71/51mmHg, will hold PT eval at this time and reattempt as medically appropriate Electronic Signatures: Kaykay Yoo (PT) (Signed 19-Sep-2021 12:14) Authored: Info Last Updated: 19-Sep-2021 12:14 by Kaykay Yoo (PT) Normal [facility] RENAL FUNCTION PANELon 09-19 Albumin [Mass/Vol] 3.4 g/dL Normal 3.4 - 5.0 [facility] Comment on above: Performed By: #### A FPA3 #### [facility] [address] [place] [address] Anion gap [Moles/Vol] 18 mmol/L Normal 10 - 20 [facility] Comment on above: Performed By: #### A FPA3 #### [facility] [address] [place] [address] Calcium [Mass/Vol] 8.3 mg/dL Low 8.6 - 10.6 [facility] Comment on above: Performed By: #### A FPA3 #### [facility] [address] [place] [address] Chloride [Moles/Vol] 100 mmol/L Normal 98 - 107 [facility] Comment on above: Performed By: #### A FPA3 #### [facility] [address] [place] [address] Creatinine [Mass/Vol] 0.60 mg/dL Normal 0.50 - 1.05 [facility] Comment on above: Performed By: #### A FPA3 #### [facility] [address] [place] [address] eGFR FEMALE >90 Normal >90 [facility] Comment on above: Result Comment: CALC ULATIONS OF ESTIMATED GFR ARE PERFORMED USING THE 2020 CKD-EPI STUDY REFIT EQUATION WITHOUT THE RACE VARIABLE FOR THE IDMS-TRACEABLE CREATININE METHODS. https://jasn.asnjournals.org/content/early/ASN.7901435 988 Performed By: #### A FPA3 #### [facility] [address] [place] [address] Glucose [Mass/Vol] 82 mg/dL Normal 74 - 99 [facility] Comment on above: Performed By: #### A FPA3 #### [facility] [address] [place] [address] HCO3 (Bld) [Moles/Vol] 26 mmol/L Normal 21 - 32 [facility] Comment on above: Performed By: #### A FPA3 #### [facility] [address] [place] [address] Phosphate [Mass/Vol] 2.8 mg/dL Normal 2.5 - 4.9 [facility] Comment on above: Result Comment: The performance characteristics of phosphorus testing in heparinized plasma have been validated by the individual laboratory site where testing is performed. Testing on heparinized plasma is not approved by the FDA; however, such approval is not necessary. Performed By: #### A FPA3 #### [facility] [address] [place] [address] Potassium [Moles/Vol] 4.5 mmol/L Normal 3.5 - 5.3 [facility] Comment on above: Performed By: #### A FPA3 #### [facility] [address] [place] [address] Sodium [Moles/Vol] 139 mmol/L Normal 136 - 145 [facility] Comment on above: Performed By: #### A FPA3 #### [facility] [address] [place] [address] Urea nitrogen [Mass/Vol] 9 mg/dL Normal 6 - 23 [facility] Comment on above: Performed By: #### A FPA3 #### [facility] [address] [place] [address] Albumin [Mass/Vol] 3.6 g/dL Normal 3.4 - 5.0 [facility] Comment on above: Performed By: #### R ENAL #### [facility] [address] [place] [address] Anion gap [Moles/Vol] 13 mmol/L Normal 10 - 20 [facility] Comment on above: Performed By: #### R ENAL #### [facility] [address] [place] [address] Calcium [Mass/Vol] 8.9 mg/dL Normal 8.6 - 10.6 [facility] Comment on above: Performed By: #### R ENAL #### [facility] [address] [place] [address] Chloride [Moles/Vol] 100 mmol/L Normal 98 - 107 [facility] Comment on above: Performed By: #### R ENAL #### [facility] [address] [place] [address] Creatinine [Mass/Vol] 0.51 mg/dL Normal 0.50 - 1.05 [facility] Comment on above: Performed By: #### R ENAL #### [facility] [address] [place] [address] eGFR FEMALE >90 Normal >90 [facility] Comment on above: Result Comment: CALC ULATIONS OF ESTIMATED GFR ARE PERFORMED USING THE 2020 CKD-EPI STUDY REFIT EQUATION WITHOUT THE RACE VARIABLE FOR THE IDMS-TRACEABLE CREATININE METHODS. https://jasn.asnjournals.org/content/early/ASN.2229251 988 Performed By: #### R ENAL #### [facility] [address] [place] [address] Glucose [Mass/Vol] 123 mg/dL High 74 - 99 [facility] Comment on above: Performed By: #### R ENAL #### [facility] [address] [place] [address] HCO3 (Bld) [Moles/Vol] 28 mmol/L Normal 21 - 32 [facility] Comment on above: Performed By: #### R ENAL #### [facility] [address] [place] [address] Phosphate [Mass/Vol] 2.8 mg/dL Normal 2.5 - 4.9 [facility] Comment on above: Result Comment: The performance characteristics of phosphorus testing in heparinized plasma have been validated by the individual laboratory site where testing is performed. Testing on heparinized plasma is not approved by the FDA; however, such approval is not necessary. Performed By: #### R ENAL #### [facility] [address] [place] [address] Potassium [Moles/Vol] 4.3 mmol/L Normal 3.5 - 5.3 [facility] Comment on above: Performed By: #### R ENAL #### [facility] [address] [place] [address] Sodium [Moles/Vol] 137 mmol/L Normal 136 - 145 [facility] Comment on above: Performed By: #### R ENAL #### [facility] [address] [place] [address] Urea nitrogen [Mass/Vol] 8 mg/dL Normal 6 - 23 [facility] Comment on above: Performed By: #### R ENAL #### [facility] [address] [place] [address] Renal Function Panelon 09-19 Albumin BCP dye [...] en terology-[facility] 6 I Work Phone: [phone] Creatinine [Mass/Vol] 0.60 mg/dL See Below [facility]-Gastroen terology-[facility]ndo lwell 6 I Work Phone: Comment on above: Reference Range: 0.5 0 - 1.05 Glucose [Mass/Vol] 82 mg/dL 74 - 99 MG-Gas troen terology-[facility] 6 [facility] Work Phone: Phosphate [Mass/Vol] 2.8 mg/dL 2.5 - 4.9 MG-G astroen terology-[facility] lwell 6 [facility] Work Phone: [phone] Comment on above: The performance arsalan acteristics [...] >90 >90 [facility]-G astroen terology-[facility] 6 [facility] Work Phone: Comment on above: CALCULATIONS OF IVY MATED GFR ARE PERFORMED USING THE 2020 CKD-EPI STUDY REFIT EQUATION WITHOUT THE RACE VARIABLE FOR THE IDMS-TRACEABLE CREATININE METHODS.https://jasn.asnjournals.org/content/early//ASN .6143186744 ANTIBODY IDENT.on 09-18-2021 ANTIBODY IDENT. Anti-E Normal [facility] Comment on above: Performed By: #### A FPA3 #### [facility] [address] [place] [address] ARTERIAL FULL PANELon 2021 Anion gap [Moles/Vol] 5 mmol/L Low 10 - 25 [facility] Comment on above: Performed By: #### A FPA3 ####[id number] [place] [address] BASE EXCESS-BLOOD 2.8 mmol/L Normal -2.0 - 3.0 [facility] Comment on above: Performed By: #### A FPA3 ####[id number] [place] [address] BICARB, CALCULATED 27.2 mmol/L High 22.0 - 26.0 [facility] Comment on above: Performed By: #### A FPA3 ####[id number] [place] [address] CALCIUM,IONIZED 1.20 mmol/L Normal 1.10 - 1.33 [facility] Comment on above: Performed By: #### A FPA3 ####[id number] [place] [address] Chloride [Moles/Vol] 106 mmol/L Normal 98 - 107 [facility] Comment on above: Performed By: #### A FPA3 ####[id number] [place] [address] Glucose [Mass/Vol] 149 mg/dL High 74 - 99 [facility] Comment on above: Performed By: #### A FPA3 ####[id number] [place] [address] Hematocrit (Bld) [Volume fraction] 38.0 % Normal 36.0 - 46.0 [facility] Comment on above: Performed By: #### A FPA3 ####[id number] [place] [address] HGB,CALCULATED 12.9 g/dL Normal 12.0 - 16.0 [facility] Comment on above: Performed By: #### A FPA3 ####[id number] [place] [address] Lactate [Moles/Vol] 0.9 mmol/L Normal 0.4 - 2.0 [facility] Comment on above: Performed By: #### A FPA3 ####[id number] [place] [address] Oxygen (Bld) [Partial pressure] 219 mm[Hg] High 85 - 95 [facility] Comment on above: Performed By: #### A FPA3 ####[id number] [place] [address] PATIENT TEMPERATURE 37.0 degrees C Normal [facility] Comment on above: Result Comment: NOTE : PATIENT RESULTS ARE NOT CORRECTED FOR TEMPERATURE. Performed By: #### A FPA3 ####[id number] [place] [address] PCO2 40 mmHg Normal 38 - 42 [facility] Comment on above: Performed By: #### A FPA3 ####[id number] [place] [address] pH (Bld) 7.44 [pH] High 7.38 - 7.42 [facility] Comment on above: Performed By: #### A FPA3 ####[id number] [place] [address] Potassium [Moles/Vol] 4.4 mmol/L Normal 3.5 - 5.3 [facility] Comment on above: Performed By: #### A FPA3 ####[id number] [place] [address] SO2 100 % Normal 94 - 100 [facility] Comment on above: Performed By: #### A FPA3 ####[id number] [place] [address] Sodium [Moles/Vol] 134 mmol/L Low 136 - 145 [facility] Comment on above: Performed By: #### A FPA3 ####[id number] [place] [address] Anion gap [Moles/Vol] 7 mmol/L Low 10 - 25 [facility] Comment on above: Performed By: #### A FPA3 #### [facility] [address] [place] [address] BASE EXCESS-BLOOD 1.8 mmol/L Normal -2.0 - 3.0 [facility] Comment on above: Performed By: #### A FPA3 #### [facility] [address] [place] [address] BICARB, CALCULATED 25.7 mmol/L Normal 22.0 - 26.0 [facility] Comment on above: Performed By: #### A FPA3 #### [facility] [address] [place] [address] CALCIUM,IONIZED 1.20 mmol/L Normal 1.10 - 1.33 [facility] Comment on above: Performed By: #### A FPA3 #### [facility] [address] [place] [address] Chloride [Moles/Vol] 105 mmol/L Normal 98 - 107 [facility] Comment on above: Performed By: #### A FPA3 #### [facility] [address] [place] [address] Glucose [Mass/Vol] 174 mg/dL High 74 - 99 [facility] Comment on above: Performed By: #### A FPA3 #### [facility] [address] [place] [address] Hematocrit (Bld) [Volume fraction] 37.0 % Normal 36.0 - 46.0 [facility] Comment on above: Performed By: #### A FPA3 #### [facility] [address] [place] [address] HGB,CALCULATED 12.6 g/dL Normal 12.0 - 16.0 [facility] Comment on above: Performed By: #### A FPA3 #### [facility] [address] [place] [address] Lactate [Moles/Vol] 1.1 mmol/L Normal 0.4 - 2.0 [facility] Comment on above: Performed By: #### A FPA3 #### [facility] [address] [place] [address] Oxygen (Bld) [Partial pressure] 224 mm[Hg] High 85 - 95 [facility] Comment on above: Performed By: #### A FPA3 #### [facility] [address] [place] [address] PATIENT TEMPERATURE 37.0 degrees C Normal [facility] Comment on above: Result Comment: NOTE : PATIENT RESULTS ARE NOT CORRECTED FOR TEMPERATURE. Performed By: #### A FPA3 #### [facility] [address] [place] [address] PCO2 37 mmHg Low 38 - 42 [facility] Comment on above: Performed By: #### A FPA3 #### [facility] [address] [place] [address] pH (Bld) 7.45 [pH] High 7.38 - 7.42 [facility] Comment on above: Performed By: #### A FPA3 #### [facility] [address] [place] [address] Potassium [Moles/Vol] 3.9 mmol/L Normal 3.5 - 5.3 [facility] Comment on above: Performed By: #### A FPA3 #### [facility] [address] [place] [address] SO2 100 % Normal 94 - 100 [facility] Comment on above: Performed By: #### A FPA3 #### [facility] [address] [place] [address] Sodium [Moles/Vol] 134 mmol/L Low 136 - 145 [facility] Comment on above: Performed By: #### A FPA3 #### [facility] [address] [place] [address] CT L Spine without Contrasto n 09-18-2021 [...] connectors. Objective Data: Objective Information: T PRBPSpO2 [id number]/4391% Date/Time09/18 6: 5: 5: 5: 5:56 Range(37C [...] Recent Arterial Blood Gas Results 09/18/2021 11:48 [id number] 24 h range: ( 219 - 224 ) pH7.44 24 h range: ( 7.44 - 7.45 ) eON189 24 h range: ( 37 - 40 ) VP5152 24 h range: ( 100 - 100 ) Base Excess2.8 24 h range: ( 1.8 - 2.8 ) Kjczbgfpnjp44.2 24 h range: ( 25.7 - 27.2 ) Assessment and Plan: Code Status: Code StatusFull Code Electronic Signatures: Bryan Mora) (Signed 18-Sep-2021 14:47) Authored: Service, Subjective Data, Objective Data, Assessment and Plan, Note Completion Last Updated: 18-Sep-2021 14:47 by Bryan Mora) Normal [facility] Daily Progress Note-Neurosjudy stearns 09-18-2021 Daily Progress Note-Neurosurgery Service: Neurosurgery Subjective Data: MORALES LEE is a 46 year old Female who is Hospital Day # 4. Objective Data: Objective Information: T PRBPSpO2 [id number]/4391% Date/Time09/18 6: 5: 5: 5: 5:56 Range(36.6C [...] Severe ---- Intake and Output ----- Mn/Dy/[facility] Sep 17, 2021 10:00 [id number] Sep 17, 2021 2:00 [id number] The Intake and Output Totals for the [...] the note. I personally evaluated the patient [id number] Electronic Signatures: Fidel Maciel (Resident)) (Signed 18-Sep-2021 06:55) Authored: Service, Subjective Data, Objective Data, Assessment and Plan, Note Completion Lex Frederick) (Signed 19-Sep-2021 10:18) Authored: Note Completion Co-Signer: Service, Subjective Data, Objective Data, Assessment and Plan, Note Completion Last Updated: 19-Sep-2021 10:18 by Lex Frederick) Normal [facility] Laboratory - Chemistry and C hemistry - [...] 150 - 450 [facility]-Gastroen terology-[facility] 6 [facility] Work Phone: RBC (Bld) [#/Vol] 4.51 {x10E12/L} See Below [facility] -Gastroen terology-[facility] 6 [facility] Work Phone: Comment on above: Reference Range: 4.0 0 - 5.20 WBC (Bld) [#/Vol] 20.5 10*3/uL above high threshold 4.4 - 11.3 [facility]-Gastroen terology-[facility] 6 [facility] Work Phone: Hematocrit (Bld) [Volume fraction] 38.0 [...] threshold See Below [facility]-Gastroen terology-[facility] 6 [facility] Work Phone: Comment on above: Reference Range: 1.6 0 - 2.[address] L-SPINE WO CONTRASTon 09-18-[address] L-SPINE WO CONTRAST Patient Name: MORALES LEE STUDY: CT L-SPINE WO CONTRAST 09/18/2021 7:32 pm INDICATION: difficulty dorsiflex bilaterally, Lie Flat: Yes COMPARISON: CT of the lumbar spine dated 10/07/2020. MRI dated 12/11/2020 ACCESSION NUMBER(S): [id number] ORDERING CLINICIAN: ANGELO JUAREZ TECHNIQUE: Thin cut [...] as stated. This study was interpreted at [facility], [place], [place]. Electronically signed by: BOONE LAO MD Normal [facility] No Panel Informationon 09-18 0.0 {/100_WBC} 0.0-0.0 [...] Respiratory Rate15 breath per minute Blood Pressure Ftzobnxc82 mm/Hg Blood Pressure Gyawqkmxn75 mm/Hg COVID 19 Results in Last 7 [...] 18-Sep-2021 06:59 by Lian Zuleta (SANAZ) Normal [facility] Radiologyon 09-18-2021 XR Chest Single view Normal [...] RACE VARIABLE FOR THE IDMS-TRACEABLE CREATININE METHODS.https://jasn.asnjournals.org/content/early//ASN .5934667034 TH CHEST; 1 VIEWon 2 TH CHEST; 1 VIEW Patient Name: MORALES LEE STUDY: CHEST; 1 VIEW; 09/18/2021 2:38 pm INDICATION: s/p central line placement (right IJ double lumen) . COMPARISON: Radiograph dated 09/15/2021 ACCESSION NUMBER(S): [id number] ORDERING CLINICIAN: BRYAN MORA FINDINGS: Right IJ [...] Electronically signed by: LORELEI JOHNSTON MD Normal [facility] VENOUS FULL PANELon 09-18-19 Anion gap [Moles/Vol] 6 mmol/L Low 10 - 25 [facility] Comment on above: Performed By: #### V FPA3 #### [facility] [id number] [place] [address] BASE EXCESS-BLOOD 3.9 mmol/L High -2.0 - 3.0 [facility] Comment on above: Performed By: #### V FPA3 #### [facility] [address] [place] [address] BICARB, CALCULATED 28.5 mmol/L High 22.0 - 26.0 [facility] Comment on above: Performed By: #### V FPA3 #### [facility] [address] [place] [address] CALCIUM,IONIZED 1.17 mmol/L Normal 1.10 - 1.33 [facility] Comment on above: Performed By: #### V FPA3 #### [facility] [address] [place] [address] Chloride [Moles/Vol] 103 mmol/L Normal 98 - 107 [facility] Comment on above: Performed By: #### V FPA3 #### [facility] [address] [place] [address] Glucose [Mass/Vol] 188 mg/dL High 74 - 99 [facility] Comment on above: Performed By: #### V FPA3 #### [facility] [address] [place] [address] Hematocrit (Bld) [Volume fraction] 39.0 % Normal 36.0 - 46.0 [facility] Comment on above: Performed By: #### V FPA3 #### [facility] [address] [place] [address] HGB,CALCULATED 13.3 g/dL Normal 12.0 - 16.0 [facility] Comment on above: Performed By: #### V FPA3 #### [facility] [address] [place] [address] Lactate [Moles/Vol] 1.2 mmol/L Normal 0.4 - 2.0 [facility] Comment on above: Performed By: #### V FPA3 #### [facility] [address] [place] [address] Oxygen (Bld) [Partial pressure] 56 mm[Hg] High 35 - 45 [facility] Comment on above: Performed By: #### V FPA3 #### [place] [address] [place] [address] PATIENT TEMPERATURE 37.0 degrees C Normal [facility] Comment on above: Result Comment: NOTE : PATIENT RESULTS ARE NOT CORRECTED FOR TEMPERATURE. Performed By: #### V FPA3 #### [facility] [address] [place] [address] PCO2 42 mmHg Normal 41 - 51 [facility] Comment on above: Performed By: #### V FPA3 #### [facility] [address] [place] [address] pH (Bld) 7.44 [pH] High 7.33 - 7.43 [facility] Comment on above: Performed By: #### V FPA3 #### [facility] [address] [place] [address] Potassium [Moles/Vol] 4.1 mmol/L Normal 3.5 - 5.3 [facility] Comment on above: Performed By: #### V FPA3 #### [facility] [address] [place] [address] SO2 91 % High 45 - 75 [facility] Comment on above: Performed By: #### V FPA3 #### [facility] [address] [place] [address] Sodium [Moles/Vol] 133 mmol/L Low 136 - 145 [facility] Comment on above: Performed By: #### V FPA3 #### [facility] [address] [place] [address] CORONAVIRUS 2019, SCREEN ASY MPTOMATICon 09-17-2021 SARS-CoV-2 (COVID-19) RNA ADRIÁN+probe Ql (Unsp spec) Not detected Normal Not Detected [facility] Comment on above: Result Comment: . This test has received FDA Emergency Use Authorization (EUA) and has been verified by ([facility]). This test is only authorized for the duration of time that circumstances exist to justify the authorization of the emergency use of in vitro diagnostic tests for the detection of SARS-CoV-2 virus and/or diagnosis of COVID-19 infection under section 564(b)(1) of the Act, 21 U.S.C. 360bbb-3(b)(1), unless the authorization is terminated or revoked sooner. is certified under CLIA-88 as qualified to perform high complexity testing. Testing is performed in the [facility] located at [address] [place] [address]. SARS-CoV-2/Flu/RSV Multiplex Test: Fact sheet for providers: https://www.fda.gov/media/367960/download Fact sheet for patients: https://www.fda.gov/media/034990/download Performed By: #### C OVSC ####[id number] ON LICENSE [place] [address] Lab Specimen Source Nasal, Nasopharyngeal Normal [facility] Comment on above: Performed By: #### C OVSC ####[id number] [place] [address] Coronavirus 2019 RNA by PCR, Screening Asymptomticon 09-17-2021 Coronavirus 2019 RNA by PCR, Screening Asymptomtic Not detected Normal See Below -Gastroen terology-[facility] 6 [facility] Work Phone: Comment on above: SOURCE: Nasal, Nasop haryngealReference Range: Not Detected.This test has received FDA Emergency Use Authorization (EUA) and has been verified by ([facility]). This test is only authorized for the duration of time that circumstances exist to justify the authorization of the emergency use of in vitro diagnostic tests for the detection of SARS-CoV-2 virus and/or diagnosis of COVID-19 infection under section 564(b)(1) of the Act, 21 U.S.C. 360bbb-3(b)(1), unless the authorization is terminated or revoked sooner. is certified under CLIA-88 as qualified to perform high complexity testing. Testing is performed in the [facility] located at [address] [place] [address].SARS-CoV-2/Flu/RSV Multiplex Test: Fact sheet for providers: https://www.fda.gov/media/201758/downloadFact sheet for patients: https://www.fda.gov/media/356088/download Covid 19 Resultson 2 SARS-CoV-2 (COVID-19) RNA [...] may also be contacted by the [facility] Health to see if any of [...] or Naproxen (Aleve) can also be used. Dkcd-tgb-wclpjav cough and cold medicines can be used according to the instructions on the package. Some qiwt-pvq-nvcjufr medicines also contain acetaminophen. Make sure you [...] water are not available, use alcohol-based hand hr analyst. Avoid touching your eyes, nose, and mouth [...] 24 mariella (more content not included)... Normal [facility] Daily Progress Note - Psychi atryon 09-17-2021 [...] pain but found it well-controlled on Dilaudid SPECTROGRAPHIC ANALYST and 5/10 mg oxycodone. Pt is interested [...] he has been working (cardoza at a [employer]), but she looks forward to his arrival [...] her suboxone. Objective: Objective Information: T PRBPSpO2 Value36.54752559/9095% Date/Time09/17 4: 10: 10: 10: 10:00 Range(35.7C - 36.6C ) (81 - 89 ) (10 - 23 ) (73 - 117 )/ (43 - 90 ) (91% - 96% ) As of 17-Sep-2021 08:00:00, patient is on 3 L/min of oxygen via nasal cannula. Pain reported at 09/17 8:00: 8 = Severe ---- Intake and Output ----- Mn/Dy/Year TimeIntakeOutputNet Sep 17, 2021 6:00 [id number] Sep 16, 2021 2:00 [id number] The Intake and Output Totals for the last 24 hours are: IntakeOutputNet [id number] Mental Status Exam: General: Awake, lying in [...] a Da (more content not included)... Normal [facility] Daily Progress Note-Neurosur leonidasgaurang 09-17-2021 Daily Progress Note-Neurosurgery Service: Neurosurgery Subjective Data: MORALES LEE is a 46 year old Female who is Hospital Day # 3. Objective Data: Objective Information: T PRBPSpO2 Value35.4732891/4393% Date/Time09/16 18:5409/16 18:5409/16 18:5409/16 18: 18:54 Range(35.7C - 36.4C ) (81 - 91 ) (15 - 24 ) (87 - 118 )/ (43 - 84 ) (91% - 96% ) As of 16-Sep-2021 18:54:00, patient is on 2 L/min of oxygen via nasal cannula. Pain reported at 09/16 16:34: 10 = Severe ---- Intake and Output ----- [facility] Sep 16, 2021 2:00 [id number] Physical Exam by System: Neurological: A&Ox3 RUE [...] the note. I personally evaluated the patient [id number] Comments/ Additional Findings I again explained to [...] Updated: 19-Sep-2021 10:16 by Lex Frederick) Normal [facility] HCG,URINEon 09-17-2021 Beta HCG ( test) Ql (U) Negative Normal Negative [facility] Comment on above: Performed By: #### A FPA3 #### [facility] [address] [place] [address] Laboratory - Blood bankon ABO group Nom (Bld) O MG-Ga stroen terology-[facility] I Work Phone: Blood group antibody investigation (P/RBC) [Interp] Anti-E [facility]-Gastroen terology-[place] [facility] 6 [facility] Work Phone: Blood group [...] 09-17-2021 REQUEST-LEUKOREDUCED RED CELLS ORDER RECD Normal [facility] Comment on above: Performed By: #### O SPINNING ROOM WORKER #### [facility] [address] [place] [address] TYPE + SCREENon 09-17-2021 ABO TYPE O Normal [facility] Comment on above: Performed By: #### T +S #### [facility] [address] [place], [place] RH TYPE Positive Normal [facility] Comment on above: Performed By: #### T +S #### [facility] [address] [place], [place] Urine Teston 09-17 HCG ( test) Ql (U) Negative Negative [facility]-Gastroen terology-[place] [facility] [facility] I Work Phone: BNPon 09-16-2021 Natriuretic peptide B (Bld) [Mass/Vol] 37 pg/mL Normal 0 - 99 [facility] Comment on above: Result Comment: . <1 [...] Performed By: #### A FPA3 #### [facility] [address] [place], [place] CBC AND DIFFERENTIALon 09-16 % AUTOMATED IMMATURE GRAN 0.5 % Normal 0.0 - 0.9 [facility] Comment on above: Result Comment: Jaleesa ture Granulocyte Count (IG) includes promyelocytes, myelocytes and metamyelocytes but does not include bands. Percent differential counts (%) should be interpreted in the context of the absolute cell counts (cells/L). Performed By: #### C BCDF ####[id number], [place] Basophils (Bld) [#/Vol] 0.04 10*3/uL Normal 0.00 - 0.10 [facility] Comment on above: Performed By: #### C BCDF ####[id number] [place] [address] Basophils/100 WBC (Bld) 0.5 % Normal 0.0 - 2.0 [facility] Comment on above: Performed By: #### C BCDF ####[id number] [place] [address] Eosinophils (Bld) [#/Vol] 0.26 10*3/uL Normal 0.00 - 0.70 [facility] Comment on above: Performed By: #### C BCDF ####[id number] [place] [address] Eosinophils/100 WBC (Bld) 3.0 % Normal 0.0 - 6.0 [facility] Comment on above: Performed By: #### C BCDF ####[id number] [place] [address] Erythrocyte distribution width (RBC) [Ratio] 13.0 % Normal 11.5 - 14.5 [facility] Comment on above: Performed By: #### C BCDF ####[id number] [place] [address] Hematocrit (Bld) [Volume fraction] 42.7 % Normal 36.0 - 46.0 [facility] Comment on above: Performed By: #### C BCDF ####[id number] [place] [address] Hemoglobin (Bld) [Mass/Vol] 14.1 g/dL Normal 12.0 - 16.0 [facility] Comment on above: Performed By: #### C BCDF ####[id number] [place] [address] Lymphocytes (Bld) [#/Vol] 3.17 10*3/uL Normal 1.20 - 4.80 [facility] Comment on above: Performed By: #### C BCDF ####[id number] [place] [address] Lymphocytes/100 WBC (Bld) 37.2 % Normal 13.0 - 44.0 [facility] Comment on above: Performed By: #### C BCDF ####[id number] [place] [address] MCHC (RBC) [Mass/Vol] 33.0 g/dL Normal 32.0 - 36.0 [facility] Comment on above: Performed By: #### C BCDF ####[id number] [place] [address] MCV (RBC) [Entitic vol] 91 fL Normal 80 - 100 [facility] Comment on above: Performed By: #### C BCDF ####[id number] [place] [address] Monocytes (Bld) [#/Vol] 0.47 10*3/uL Normal 0.10 - 1.00 [facility] Comment on above: Performed By: #### C BCDF ####[id number] [place] [address] Monocytes/100 WBC (Bld) 5.5 % Normal 2.0 - 10.0 [facility] Comment on above: Performed By: #### C BCDF ####[id number] [place] [address] Neutrophils (Bld) [#/Vol] 4.55 10*3/uL Normal 1.20 - 7.70 [facility] Comment on above: Performed By: #### C BCDF ####[id number] [place] [address] Neutrophils/100 WBC (Bld) 53.3 % Normal 40.0 - 80.0 [facility] Comment on above: Performed By: #### C BCDF ####[id number] [place] [address] NUCLEATED RBC 0.0 /100 WBC Normal 0.0-0.0 [facility] Comment on above: Performed By: #### C BCDF ####[id number] [place] [address] Platelets (Bld) [#/Vol] 278 10*3/uL Normal 150 - 450 [facility] Comment on above: Performed By: #### C BCDF ####[id number] [place] [address] RBC 4.70 x10E12/L Normal 4.00 - 5.20 [facility] Comment on above: Performed By: #### C BCDF ####[id number] [place] [address] WBC (Bld) [#/Vol] 8.5 10*3/uL Normal 4.4 - 11.3 [facility] Comment on above: Performed By: #### C BCDF ####[id number] [place] [address] COAGULATION SCREENon 022 aPTT Coag (Bld) [Time] 31 s Normal 26 - 39 [facility] Comment on above: Result Comment: Note new reference range as of 08/04/2021 at 10:00am. Performed By: #### V FPA3 #### [facility] [address] [place] [address] PT Coag (PPP) [Time] 11.6 s Normal 9.8 - 13.4 [facility] Comment on above: Result Comment: Note new reference range as of 08/04/2021 at 10:00am. Performed By: #### V FPA3 #### [facility] [address] [place] [address] PT, INR 1.0 Normal 0.9 - 1.1 [facility] Comment on above: Performed By: #### V FPA3 #### [facility] [address] [place] [address] Clinical Event Note-ADMISSIO N CLARIFICATIONon 09-16-2021 Clinical [...] and monitoring for withdrawal. Provider/Team Contact Info-Pager [phone] Electronic Signatures: Sharmin Guaman (YARD FOREMAN-CLAIM INSPECTOR) (Signed 16-Sep-2021 12:07) Authored: Clinical Event Note Last Updated: 16-Sep-2021 12:07 by Sharmin Guaman (YARD FOREMAN-CLAIM INSPECTOR) Normal [facility] Complete Blood Count + Diffe sonjaon 09-16-2021 [...] 10*3/uL 4.4 - 11.3 MG-Gas troen terology-[facility] Work Phone: Complete Blood Count + Differential 0.04 {x10E9/L} See Below MG-Gastroen terology-[place] [facility] 6 [facility] Work Phone: Comment on above: Reference Range: 0.0 0 - 0.10 Complete Blood Count + Differential 0.26 {x10E9/L} See Below [facility]-Gastroen terology-[facility] [facility] 6 [facility] Work Phone: Comment on above: Reference Range: 0.0 0 - 0.70 Complete Blood Count + Differential 0.47 {x10E9/L} See Below MG-Gastroen terology-[facility] [facility] 6 [facility] Work Phone: Comment on above: Reference Range: 0.1 0 - 1.00 Complete Blood Count + Differential 3.17 {x10E9/L} See Below [facility]-Gastroen terology-[place] [facility] 6 I Work Phone: Comment on above: Reference Range: 1.2 0 - 4.80 Complete Blood Count + Differential 4.55 {x10E9/L} See Below MG-Gastroen terology-[place] [facility] 6 [facility] Work Phone: Comment on above: [...] 0.0 {/100_WBC} 0.0-0.0 [facility]-Gastroen [facility]ology-[place] [facility] Work Phone: Consult-Painon 09-16-2021 Consult-Pain Service: Service: [...] the note. I personally evaluated the patient [id number] Electronic Signatures: Chidi Lamar ( (Fellow)) (Signed [...] From Consult - Psychiatry 15-Sep-2021 20:42 Normal [facility] Consult-Perioperative Medici neon 09-16-2021 Consult-Perioperativ e Medicine [...] penicillin: Unknown Objective: Objective Information: T PRBPSpO2 [id number]/8491% Date/Time09/16 11:131 12:4909/16 12:4909/16 12: 12:49 Range(36.3C [...] 100 mg (more content not included)... Normal [facility] Cult, Urineon 09-16-2021 Bacteria identified Cx Nom (U) Abnormal MG-Gastroen terology-[facility] 6 [facility] Work Phone: Daily Progress Note-Neurosur jinny 09-16-2021 Daily Progress Note-Neurosurgery Service: Neurosurgery Subjective Data: MORALES LEE is a 46 year old Female who is Hospital Day # 3. Objective Data: Objective Information: T PRBPSpO2 Value36.7315087/6693% Date/Time09/16 1: 4: 4: 4: 4:00 Range(36.3C [...] (suboxone) in AM COWS psych recs SCD's, [facility] Attestation: Note Completion: I am a: Resident/Fellow [...] the note. I personally evaluated the patient [id number] Comments/ Additional Findings TO OR this Tuesday if medically optimized for T12 - Pelvis fusion and Instrumentation. Pain consult for management regrading Suboxone and pain control in the perioperative period. US LE MRI of the lumbar spine., Lex Frederick MD, [facility], FAANS Director - Minimally Invasive Spine Surgery [facility] [employer] Operator of Neurological Surgery [facility] [employer] [place], [place] Electronic Signatures: Fidel Maciel (Resident)) (Signed 16-Sep-2021 04:33) Authored: Service, Subjective Data, Objective Data, Assessment and Plan, Note Completion Lex Frederick) (Signed 16-Sep-2021 10:22) Authored: Note Completion Co-Signer: Service, Subjective Data, Objective Data, Assessment and Plan, Note Completion Last Updated: 16-Sep-2021 10:22 by Lex Frederick) Normal [facility] EMR ADDONon 09-16-2021 ADDON CONFIRMATION REQUEST REC'D Normal [facility] Comment on above: Performed By: #### E [...] above: . <100 pg/mL - Heart failure [id number] pg/mL - Intermediate probability of acute heart. [...] [Mass/Vol] 3.5 g/dL Normal 3.4 - 5.0 [facility] Comment on above: Performed By: #### R ENAL #### [facility] [address] [place] [address] Anion gap [Moles/Vol] 14 mmol/L Normal 10 - 20 [facility] Comment on above: Performed By: #### R ENAL #### [facility] [address] [place] [address] Calcium [Mass/Vol] 8.9 mg/dL Normal 8.6 - 10.6 [facility] Comment on above: Performed By: #### R ENAL #### [facility] [address] [place] [address] Chloride [Moles/Vol] 101 mmol/L Normal 98 - 107 [facility] Comment on above: Performed By: #### R ENAL #### [facility] [address] [place] [address] Creatinine [Mass/Vol] 0.63 mg/dL Normal 0.50 - 1.05 [facility] Comment on above: Performed By: #### R ENAL #### [facility] [address] [place] [address] eGFR FEMALE >90 Normal >90 [facility] Comment on above: Result Comment: CALC ULATIONS OF ESTIMATED GFR ARE PERFORMED USING THE 2020 CKD-EPI STUDY REFIT EQUATION WITHOUT THE RACE VARIABLE FOR THE IDMS-TRACEABLE CREATININE METHODS. https://jasn.asnjournals.org/content/early/ASN.6992558 988 Performed By: #### R ENAL #### [facility] [address] [place] [address] Glucose [Mass/Vol] 88 mg/dL Normal 74 - 99 [facility] Comment on above: Performed By: #### R ENAL #### [facility] [address] [place] [address] HCO3 (Bld) [Moles/Vol] 29 mmol/L Normal 21 - 32 [facility] Comment on above: Performed By: #### R ENAL #### [facility] [address] [place] [address] Phosphate [Mass/Vol] 3.4 mg/dL Normal 2.5 - 4.9 [facility] Comment on above: Result Comment: The performance characteristics of phosphorus testing in heparinized plasma have been validated by the individual laboratory site where testing is performed. Testing on heparinized plasma is not approved by the FDA; however, such approval is not necessary. Performed By: #### R ENAL #### [facility] [address] [place] [address] Potassium [Moles/Vol] 3.7 mmol/L Normal 3.5 - 5.3 [facility] Comment on above: Performed By: #### R ENAL #### [facility] [address] [place] [address] Sodium [Moles/Vol] 140 mmol/L Normal 136 - 145 [facility] Comment on above: Performed By: #### R ENAL #### [facility] [address] [place] [address] Urea nitrogen [Mass/Vol] 10 mg/dL Normal 6 - 23 [facility] Comment on above: Performed By: #### R ENAL #### [facility] [address] [place] [address] Renal Function Panelon 09-16 Albumin BCP dye [Mass/Vol] 3.5 g/dL 3.4 - 5.0 [facility]astroen [facility]ology-[place] 6 [facility] Work Phone: Anion gap [Moles/Vol] 14 mmol/L [...] RACE VARIABLE FOR THE IDMS-TRACEABLE CREATININE METHODS.https://jasn.asnjournals.org/content/early//ASN .0980920106 UA MICROSCOPICon 09-16-2021 BACTERIA 2+ /HPF Abnormal [facility] Comment on above: Performed By: #### U AMIC ####[id number] [place] [address] Mucus Ql (Urine sed) 1+ /LPF Normal [facility] Comment on above: Performed By: #### U AMIC ####[id number] [place] [address] RBC 3 /HPF Normal 0-5 [facility] Comment on above: Performed By: #### U AMIC ####[id number] [place] [address] SQUAMOUS EPITH. CELLS 2 /HPF Normal [facility] Comment on above: Performed By: #### U AMIC ####[id number] [place] [address] WBC 115 /HPF Abnormal 0-5 [facility] Comment on above: Performed By: #### U AMIC ####[id number] [place] [address] URINALYSISon 09-16-2021 Appearance (U) HAZY Normal CLEAR [facility] Comment on above: Performed By: #### U A ####[id number] [place] [address] Bilirubin Ql (U) Negative Normal NEGATIVE [facility] Comment on above: Performed By: #### U A ####[id number] [place] [address] Color (U) YELLOW Normal STRAW,YELLO W [facility] Comment on above: Performed By: #### U A ####[id number] [place] [address] Glucose Ql (U) Negative Normal NEGATIVE [facility] Comment on above: Performed By: #### U A ####[id number] [place] [address] Hemoglobin Ql (U) Negative Normal NEGATIVE [facility] Comment on above: Performed By: #### U A ####[id number] [place] [address] Ketones Ql (U) Negative Normal NEGATIVE [facility] Comment on above: Performed By: #### U A ####[id number] [place] [address] Leukocyte esterase Test strip Ql (U) LARGE (3+) Abnormal NEGATIVE [facility] Comment on above: Performed By: #### U A ####[id number] [place] [address] Nitrite Ql (U) Positive Abnormal NEGATIVE [facility] Comment on above: Performed By: #### U A ####[id number] [place] [address] pH (U) 6.0 [pH] Normal 5.0 - 8.0 [facility] Comment on above: Performed By: #### U A ####[id number] [place] [address] Protein Ql (U) Negative Normal NEGATIVE [facility] Comment on above: Performed By: #### U A ####[id number] [place] [address] Specific gravity (U) [Rel density] 1.011 Normal 1.005 - 1.035 [facility] Comment on above: Performed By: #### U A ####[id number] [place] [address] Urobilinogen (U) [Mass/Vol] 2.0 mg/dL High 0.0 - 1.9 [facility] Comment on above: Result Comment: Due to [...] positive urobilinogen. Performed By: #### U A ####[id number] [place] [address] URINE CULTURE,BACTERIALon URINE CULTURE,BACTERIAL PATIENT: MORALES LEE LOCATION: [facility]#: [id number] : 71 AGE: SEX: F ORDERED BY: [...] DOSE DEPENDENT NS=NONSUSCEPTIBLE X=REPORTED IN ERROR Normal [facility] Comment on above: Performed By: #### A FPA3 #### [facility] [address] [place] [address] Urinalysison 09-16-2021 Color (U) YELLOW See Below [...] Positive Abnormal NEGATIVE [facility] Work Phone: Urinalysis 2.0 mg/dL above high [...] Microscopic 2+ Abnormal [facility]astroen [facility]ology-[place] 6 [facility] Work Phone: Urinalysis, Microscopic 2 {/HPF} [facility]astroen [facility]ology-[place] [facility] Work Phone: Urinalysis, Microscopic 3 {/HPF} 0-5 [facility] Work Phone: Urinalysis, Microscopic 115 {/HPF} Abnormal 0-5 [facility] Work Phone: VASC LAB Venous Duplex Ultra sound DVTon 09-16-2021 VAS LAB Venous Duplex Ultrasound DVT [place] [address] and Vascular Lab Report Lower Venous Duplex Ultrasound Patient Name: MORALES LEE Reading Physician: [id number] Arjun Romero MD, RPCONSUELO Study Date: 09/16/2021 Referring Physician: [id number] RAGSDALE MRN/PID: [id number] PCP: Accession/Order#: [id number] CC Report to: Date of : 1975 Technologist: Isai Burleson RVT Gender: F Technologist 2: Admission Status: Outpatient Location Performed: [facility] Diagnosis/ICD: M79.89-Left leg swelling; M79.89-Right leg swelling Procedure/CPT: 18644 Peripheral venous duplex scan for DVT complete-44948 CONCLUSIONS: Right Lower Venous: No evidence of [...] Spontaneous/Phasic Peroneal Yes None PTV Yes None [id number] Arjun Romero MD, RPVI Final Normal [facility] VAS LAB Venous Duplex Ultra sound for DVTon 09-16-2021 [facility] LAB Venous Duplex Ultrasound for DVT [facility] Work Phone: No Panel Informationon 09-15 [email or web address]?Ret rieveTestByDateTime?Patient LS=[id number]&Date= 2&Time=19%3a14%3a23%3a00&Te stType=ECG&Site=1&OutputTyp e=PDF&Ext=PDF [facility] [facility] [...] I Work Phone: [email or web address]?Ret rieveTestByDateTime?Patient VQ=[id number]&Date= 2&Time=19%3a14%3a42%3a00&Te stType=ECG&Site=1&OutputTyp e=PDF&Ext=PDF [facility] [...] (Advanced Practice Nurse) done by Concetta Shi ([facility]) Admission - Reconciliation: 15-Sep-2021 19:03 [...] to Incomplete: 30-Sep-2021 14:18 by: Concetta Shi ([facility]) Admission - Reconciliation: 30-Sep-2021 14:20 by: Concetta Shi ([facility]) Home MedicationsEnteredLast Dose TakenReconciled with current Order Reconciliation Comment/ Additional Information acetaminophen 325 mg oral tablet 2 tab(s) orally every 6 hours, as needed while having post operative spiz26-Vxv-2432 Reviewed and Held Ambien CR 12.5 mg oral tablet, extended release 1 tab(s) oral axm37-Upd-3153 Zolpidem Tablet (AMBIEN)DOSE = 10 mg Oral At BedtimeNotes from Pharmacy: Substitution For Zolpidem (Ambien CR) 12.5 mg at Bedtime Ambien CR 12.5 mg oral tablet, extended release continued as the inpatient order Zolpidem Ankle Foot Orthosis for foot edsf80-Zjt-5581 Reviewed and Held betamethasone topical valerate 0.1% topical cream 1 milena topical prn 15-Sep-2021 EnteredInError Reviewed and Held Bilateral Prafos - orthotics to fit, - ICD 10: R26.0, M21.37, M62.81 30-Sep-2021 Reviewed and Held calcium-vitamin D 500 mg-200 intl units (5 mcg) oral tablet 1 tab(s) orally 4 times a sqp98-Vgi-6090 Calcium 500 mg - Vitamin D 200 [...] times a day, as needed for muscle -Jiy-1423 Cyclobenzaprine Tablet (FLEXERIL)DOSE = 10 mg Oral [...] topical 1% topical gel 1 milena topical qjb95-Boc-7848 Reviewed and Held DULoxetine 30 mg oral [...] 2 tab(s) orally once a day, As Ycjsmx92-Coq-4476 Reviewed and Held gabapentin 800 mg oral tablet 1 tab(s) oral 3 times a eru75-Vuv-7441 Gabapentin Capsule (NEURONTIN)DOSE = 800 mg Oral 3 Times a Day gabapentin 800 mg oral tablet continued as the inpatient order Gabapentin LEFT AFO -Orthotics to fit, ICD 10: M21.3851-Gds-9770 Reviewed and Held lidocaine 5% topical film Apply topically to affected area once a day, As Needed near surgical incision for incisional pain 15-Sep-2021 EnteredInError Reviewed and Held lisinopril 20 mg oral tablet 1 tab(s) oral once a lmw41-Swi-9156 Lisinopril Tablet (PRINIVIL, ZESTRIL)DOSE = 20 mg [...] - available over the counter at any oomakfyu87-Nvt-4158 Reviewed and Held RIGHT AFO - Orthotics to fit, - M21.9489-Ebu-1324 Reviewed and Held sennosides-docusate 8.6 mg-50 mg oral tablet 2 tab(s) orally 2 times a day , -Take while using oxycodone for post operative pain to prevent contipation 15-Sep-19 (more content not included)... Normal [facility] Radiologyon 09-15-2021 XR Chest Single view Normal [facility] Work Phone: TH CHEST 1 VIEWon 09-15-2021 TH CHEST 1 VIEW Patient Name: MORALES LEE STUDY: CHEST 1 VIEW; 09/15/2021 7:21 pm INDICATION: pre-op . COMPARISON: 12/26/2020. ACCESSION NUMBER(S): [id number] ORDERING CLINICIAN: TOSHA BORJA FINDINGS: CARDIOMEDIASTINAL SILHOUETTE: [...] Electronically signed by: Esther PEDERSON MD Normal [facility] Established Visit (Neurosurg ariana)on 09-08-2021 Established Visit [...] in the Neurosurgery Spine Clinic at the [facility]. She is a very pleasant [...] and T6-L4 Fusion. COMPARISON: None. ACCESSION NUMBER(S): [id number] ORDERING CLINICIAN: LEX FREDERICK FINDINGS: Fused PA [...] Electronically signed by: JOSEPH SALAZAR MD Normal [facility] Tobacco Screening.on Fall risk assessment b) One or more fall s in the last year -Nuha Doyle Work Phone: Tobacco use status CPHS a) Yes -Nuha Doyle Work Phone: Established Visit (Neurosurg ariana)on 05-05-2021 Established Visit (Neurosurgery) History of Present Illness I just had the pleasure of seeing Mrs. Jesus villarreal in the Neurosurgery Spine Clinic at the [facility]. She is a very pleasant 45 -year-old female, who recently underwent a L1 Vertbrectomy and T6-L4 Fusion with me on 12/26/2020 and is status post 4 Months out from her surgery. Today's visit was a virtual visit with the patient at her home and myself at [facility]. She mentions that overall she is doing [...] FAANS Director - Minimally Invasive Spine Surgery [facility] Apple Press Operator of Neurological Surgery [facility] [place], [place] Some of this note was completed using ALKALINE [employer] voice recognition technology and sometimes the software [...] May 05 2021 9:18PM EST (Author) Normal [employer] Established Visit (Neurosurg ariana)on 01-08-2021 Established Visit [...] in the Neurosurgery Spine Clinic at the [facility]. She is a very pleasant [...] FAANS Director - Minimally Invasive Spine Surgery [facility] Forestry Tree Pruner of Neurological Surgery [facility] [place], [place] Some of this note was completed using ALKALINE W[employer] voice recognition technology and sometimes the software [...] Unspecified cord compression. COMPARISON: None. ACCESSION NUMBER(S): [id number] ORDERING CLINICIAN: LEX FREDERICK TECHNIQUE: Multiplanar and [...] [facility] Center NR MRI L-SPINE WOon 12-12-19 21 NR MRI L-SPINE WO Patient Name: MORALES LEE STUDY: MRI L-SPINE WO; ; 12/11/2020 1:38 pm INDICATION: Lumbar Pain Scoliosis, unspecified Low back pain. COMPARISON: CT lumbar spine from 10/07/2020. MRI lumbar spine from 03/11/2016. ACCESSION NUMBER(S): [id number] ORDERING CLINICIAN: LEX FREDERICK TECHNIQUE: MRI of [...] multiple levels. This study was interpreted at . Electronically signed by: WESLEY CARBAJAL MD [facility] [...] Status:Resulted - Preliminary,Retrospective By Protocol Authorization; Done: [id number] 12:00AM Reason: Unspecified for Xray Spine, entire thoracic/lumbar, include skull, cervical and sacral spine when performed, 2 or 3 view Radiologist to Determine Optimal Study : Y What are the patient's signs and symptoms? : Lumbar Pain SocHx: Current smoker Tobacco Use Screening; Status:Complete; Done: [id number] Patient Discussion/Summary It was a pleasure to see Ms. LEE at the Neurosurgery Spine Clinic at [facility]. Ms. 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 She now has been having severe symptoms [...] at the [facility] who recommended urgent surgery for her on [...] even walk (more content not included)... [facility] 07-[facility]-2019 GIAN Telephone (SPNMMN) MORALES LEE ([id number]) 1975 F Date Time Provider Department 07/10/19 [...] Order(s):CONSULT TO ORTHOPAEDIC SURGERY [19991006] Order #: [id number]: 1 Prescriptions as of 07/10/2019 Sig: LISINOPRIL [...] Status:Closed by DIXIE TEE MD on 07/10/19 [facility] Luisana 07-09-2019 CNOV Office Visit (SPNSMN ) MORALES LEE ([id number]) 1975 F Date Time Provider Department 07/09/19 9:30 AM STEVENSON QUAN SPNSMN During your visit today, we recorded the following information about you: Pulse Respiration Blood pressure Weight 89/minute 18/minute 124/74 95.8 kg Height 1.499 m Stevenson Quan MD 07/09/2019 2:56 PM Signed SPINE SURGERY OUTPATIENT CONSULT SERVICE DATE: 07/09/2019 PCP: No primary care provider on file. REFERRING PROVIDER: Dixie Tee MD [id number] [facility] [address] Consult requested for an opinion regarding the [...] file Gets together: Not on file Attends jainism service: Not on file Active member of [...] with the patient or the patient?s personal customer care representative. 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] Other Visit Diagnosis:Spinal stenosis of thoracic region [M48.04] Order(s):CT THORACIC SPINE WO IVCON [7638887] Order #: [id number] FUTURE Prescriptions as of 07/09/2019 Sig: LISINOPRIL [...] Status:Closed by STEVENSON QUAN MD on 07/09/19 [facility] OBSOLETEon 07-09-2019 OBSOLETE Procedure (EMGMN) MORALES LEE ([id number]) 1975 F Date Time Provider Department 07/09/19 [...] upper limb [G56.21] Order(s):EMG(NEURO/NI) [[id number]] Order #: [id number]: 1 Prescriptions as of 07/09/2019 Sig: LISINOPRIL [...] Status:Closed by JHON EASON MD on 07/09/19 [facility] 07-09-2019 PROGRESS HNO ID: [id number] Author: Stevenson Quan Service: ? Author Type: Physician Type: Progress Notes Filed: 07/09/2019 2:56 PM Note Text: SPINE SURGERY OUTPATIENT CONSULT SERVICE DATE: 07/09/2019 PCP: No primary care provider on file. REFERRING PROVIDER: Dixie Tee MD [address] [facility] [address] Consult requested for an opinion regarding the [...] file Gets together: Not on file Attends jainism service: Not on file Active member of [...] with the patient or the patient?s personal customer care representative. The patient has elected to schedule [...] 09, 2019 TIME: 10:24 AM PAGER: Normal [facility] OT-XR DEXA BONE DENSITY IMPO RTon 07-06-2019 OT-XR DEXA BONE DENSITY IMPORT Images were obtained outside of [facility] [id number] Normal [facility] HNO ID: [id number] Author: Kimberly (Rn) MERA Dunaway Service: ? Author Type: Registered Nurse Type: Care Mgt Initial Assessment Filed: 06/20/2019 12:25 PM Note Text: CARE MANAGEMENT: ASSESSMENT AND DISCHARGE PLAN SERVICE DATE: 06/20/2019 SERVICE TIME: 12:21 PM PRIMARY CARE PHYSICIAN: No primary care provider on file. 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 No Advance Directive: Current Advance Directive: None Dope Sprayer Attempted to Assist with AD Completion: Yes [...] None Has the Patient Been in a Detention Facility in the Past 30 days? N/A SOCIAL: Living Arrangement: Home Lives With: Spouse Financial Resources: Disabled Primary Contact: Extended Emergency Contact Information Primary Emergency Contact: Lars Lee Address: [address] [place] [address] [facility] Mobile Relation: Spouse Supportive: Yes [...] 0 I feel financially burdened by my euj-xv-erqsmx expenses for my prescription medication: Disagree completely [...] with . Does not utilize any DME, long term or community resources. Has d/c transportation via . Anticipate transitional care plan of home, no skilled needs identified at this time. TCC will remain available to assist as needed with transition planning. SIGNATURE: Kimberly Dunaway RN PATIENT NAME: Morales Lee DATE: June 20, 2019 TIME: 12:21 PM PAGER/CONTACT #: [phone] Normal [facility] CBCon 06-20-2019 Erythrocyte distribution width (RBC) [Ratio] 12.6 % Normal 11.5-15.0 [facility] Comment on above: Performed By: #### C BC #### [place] [id number] [place] [phone] Hematocrit (Bld) [Volume fraction] 48.7 % High 36.0-46.0 [facility] Comment on above: Performed By: #### C BC #### [place] [id number] [place] [phone] Hemoglobin (Bld) [Mass/Vol] 16.8 g/dL High 11.5-15.5 [facility] Comment on above: Performed By: #### C BC #### [place] [id number] [place] [phone] MCH (RBC) [Entitic mass] 31.1 pG Normal 26.0-34.0 [facility] Comment on above: Performed By: #### C BC #### [facility] [address] [place] [phone] MCHC (RBC) [Mass/Vol] 34.5 g/dL Normal 30.5-36.0 [facility] Comment on above: Performed By: #### C BC #### [facility] [place] [phone] MCV (RBC) [Entitic vol] 90.0 fL Normal 80.0-100.0 [facility] Comment on above: Performed By: #### C BC #### [place] [phone] Platelet mean volume (Bld) [Entitic vol] 10.6 fL Normal 9.0-12.7 [facility] Comment on above: Performed By: #### C BC #### [place] [phone] Platelets (Bld) [#/Vol] 334 10*3/uL Normal 150-400 [facility] Comment on above: Performed By: #### C BC #### [facility] [address] [place] [address] RBC (Bld) [#/Vol] 5.41 10*6/uL High 3.90-5.20 [facility] Comment on above: Performed By: #### C BC #### [facility] [address] [place] [address] WBC (Bld) [#/Vol] 10.85 10*3/uL Normal 3.70-11.00 [facility] Comment on above: Performed By: #### C BC #### [facility] [address] [place] [address] CONSULTon 06-20-2019 CONSULT HNO ID: [id number] Author: Evelyn Resendez Service: Pain Management Author [...] controlled substances - including suboxone - from [facility]. Of note, pt has followed once [...] me to leave. She is now leaving [place]. 3. Will sign off SUBJECTIVE CHIEF COMPLAINT: [...] activity was identified. 06/20/2019 by Evelyn Resendez APRN.CLAIM INSPECTOR PAST MEDICAL HISTORY Diagnosis Date - Degenerative [...] file Gets together: Not on file Attends jainism service: Not on file Active member of [...] the Morales Lee's care. SIGNATURE: Evelyn Resendez APRN.CLAIM INSPECTOR PATIENT NAME: Morales Lee DATE: June 20, 2019 TIME: 8:24 AM PAGER/CONTACT #: [phone] (M-F 8-5) Normal [facility] CT BRAIN WO IVCONon 10-16-[address] BRAIN WO IVCON * * *Final Report* * * DATE OF EXAM: Jun 20 2019 1:31AM [facility] 0504 - CT BRAIN WO IVCON [...] No large cortical infarct or acute hemorrhage. Wood Mechanist: [facility] Transcribe Date/Time: Jun 20 2019 1:33A Dictated by : DAVONTE MOY MD This examination was interpreted and the report reviewed and electronically signed by: DAVONTE MOY MD on Jun 20 2019 1:35AM EST [id number] Normal [facility] ECG COMPLETEon 06-20-2019 ECG COMPLETE NAME : MORALES LEE PID : [id number] : 1975 Gender : Female Race : ORD : [id number] Procedure Date : Jun 19 2019 23:57:03 Edit Date : Jun 20 2019 07:51:18 Diagnosis:Sinus rhythm Normal ECG no STEMI 1200a Confirmed by MD CORBY, TRACY ([id number]), photographic editor FOREST WALTON ([id number]) on 06/20/2019 7:51:18 AM Ventricular Rate : 85 BPM Atrial Rate : 85 BPM P-R Interval : 137 ms QRS Duration : 91 ms Q-T Interval : 365 ms QTC Calculation(Bazett) : 434 ms P [place] : 51 degrees R [place] : -13 degrees T [place] : 61 degrees Test Reason : Chest Pain Location : 302 : ED AVED-1 Overread By : MD ARREDONDO LISA Edited By : FOREST WALTON Referred By : , Acquired by : [id number], [facility] ED NOTEon 06-20-2019 ED NOTE HNO ID: [id number] Author: Yuki Mckenzie) MERA Cruz Service: ? Author Type: Registered Nurse Type: ED Notes Filed: 06/20/2019 1:40 AM Note Text: Patient got CT, it is still pending and Jessie BONITA said ok to transfer to [facility] with out results pending. Patient agreeing and understanding of transfer. updated on POC and transfer via telephone. DM here to take patient at this time. Pain is not improved at time of transfer. [facility] ED NOTE HNO ID: [id number] Author: Yuki Cruz RN Service: ? Author Type: Registered Nurse Type: ED Notes Filed: 06/20/2019 1:15 AM Note Text: Clean catch urine specimen obtained and sent. [facility] ED NOTE HNO ID: [id number] Author: Yuki Mckenzie) MERA Cruz Service: ? [...] time with getting transferred to another facility. [facility] ED NOTE HNO ID: [id number] Author: Yuki Mckenzie) MERA Cruz Service: ? Author Type: Registered Nurse Type: ED Notes Filed: 06/20/2019 3:28 AM Note Text: Patient stated Valium did not help. She continues to be in pain and upset. She wanted to speak with someone in charge and update on POC. Normal [facility] HISTORY PHYSICALon 9 HISTORY PHYSICAL HNO ID: [id number] Author: Talita Wesley RN Service: General Internal [...] tightness that is constant. Notices a decreased block out machine operator strength and weakness in left hand. [...] pressure, palpitations, leg swelling. Denies hx of ND. GI: Denies nausea, vomiting, diarrhea, abdominal pain, [...] rotation 40/80% Decreased left C5-C7 sensation. Left block out machine operator strength 2/5. Right block out machine operator strength 5/5. UE DTR intact and [...] tightness into left arm, weak left hand block out machine operator strength, and worsening severity of numbness/tingling [...] confirmed with patient pharmacy. Patient uses [facility] in [place], [place]. Patient provided #[phone]. Will call in am to confirm dose. Nicotine Abuse Assessment AND Plan: Smokes 1 1/2 PPD for 20 years. Smoking cessation advised. Nicotine patch ordered. Medication and Non-Pharmacologic VTE Prophylaxis/Anticoagulants VTE Prophylaxis: VTE prophylaxis appropriate SIGNATURE: Talita Wesley APRN.CNP PATIENT NAME: Morales Lee DATE: June 20, 2019 TIME: 2:58 AM PAGER/CONTACT #: [facility] # [phone] [facility] NURSING PROGon 06-20-2019 NURSING PROG HNO ID: [id number] Author: Austyn (Rn) MERA Berumen Service: Nursing Author Type: Registered Nurse Type: Nursing Progress Note Filed: 06/20/2019 3:10 PM Note Text: Nursing Progress Note Patient Name: Morales Lee Patient Location: [id number] 2 Daily Note:06/20/2019 -pt is upset regarding [...] note was completed by: AUSTYN BERUMEN RN [facility] NURSING PROG HNO ID: [id number] Author: Austyn WilksRn) MERA Berumen Service: Nursing Author Type: Registered Nurse Type: Nursing Progress Note Filed: 06/20/2019 8:10 AM Note Text: Nursing Progress Note Patient Name: Morales Lee Patient Location: [id number] 2 Daily Note:06/20/2019 -assumed care of patient, pt is requesting her suboxone. We have to call to verify dosage. -MERA Acosta called pharmacy provided by night CHEMICAL ENGRAVER and the pharmacy does not open until 9am. We will call back to verify dose later. -Dr. Kwon called to speak with this RN, he will be in to see the patient later today. This note was completed by: AUSTYN BERUMEN RN [facility] NURSING PROG HNO ID: [id number] Author: Guadalupe WilksRn) MERA Herbert Service: ? Author Type: Registered Nurse Type: Nursing Progress Note Filed: 06/20/2019 4:33 AM Note Text: Nursing Progress Note Patient Name: Morales Lee Patient Location: [id number]/[id number] 2 Daily Note:DACIAO x 3. C/O left [...] note was completed by: Guadalupe Herbert RN [facility] PROGRESSon 06-20-2019 PROGRESS HNO ID: [id number] Author: Sedrick Martin Service: General Internal Medicine [...] rales. Cor:RSR, no murmurs. 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 DATA: Diagnostic tests [...] Non-Pharmacologic VTE Prophylaxis/Anticoagulants 06/20/19399 pneumatic compression stockings (mi,or) 06/20/19399 activity - mobilize patient ([place]) VTE Prophylaxis: appropriate SIGNATURE: Sedrick Martin MD PATIENT NAME: Morales Lee DATE: June 20, 2019 TIME: 10:41 AM PAGER: [facility] PROGRESS HNO ID: [id number] Author: Sedrick Martin Service: General Internal Medicine Author Type: Physician Type: Progress Notes Filed: 06/20/2019 8:25 AM Note Text: As per Pain Management Consult still pending, I was notified by Pain Management to resume the pt.' s home Suboxone dosage until pt. Seen later today. Normal [facility] Troponin Ton 06-20-2019 Troponin T.cardiac [Mass/Vol] ug/L Normal 0.000-0.029 [facility] Comment on above: Performed By: #### T NT #### [facility] [address] [place] [phone] Troponin T.cardiac [Mass/Vol] ug/L Normal 0.000-0.029 [facility] Comment on above: Performed By: #### T NT #### [place] [id number] [place] [phone] Basic Metabolic Panlon 06-19 Anion gap [Moles/Vol] [...] Hospital Comment on above: Result Comment: The [place] Diabetes Association (ADA) provides guidance for cutoff [...] Standards of Medical Care in Diabetes 2016, [place] [employer] Association. Diabetes Care. 2016.39(Suppl 1). Potassium [Moles/Vol] 3.7 mmol/L Normal 3.7-5.1 [facility] Sodium [Moles/Vol] 139 mmol/L Normal 136-144 [facility] Urea nitrogen [Mass/Vol] 7 mg/dL Normal 7-21 [facility] CBC and Differentialon 06-19 Abs Baso 0.09 k/uL Normal <0.11 [facility] Abs Kershaw 0.61 k/uL Normal <0.87 [facility] Abs [...] ED NOTEon 06-19-2019 ED NOTE HNO ID: [id number] Author: Yuki Cruz RN Service: ? Author Type: Registered Nurse Type: ED Notes Filed: 06/20/2019 3:27 AM Note Text: Patient has requested valium, she says that she takes it at home. Biago updated. [facility] ED NOTE HNO ID: [id number] Author: Yuki Mckenzie) MERA Cruz Service: ? Author Type: Registered Nurse Type: ED Notes Filed: 06/20/2019 3:27 AM Note Text: Patient is complaining of nausea. She is requesting her saboxon as well and Biago was updated on request. [facility] ED NOTE HNO ID: [id number] Author: Yuki Mckenzie) MERA Cruz Service: ? Author Type: Registered Nurse Type: ED Notes Filed: 06/19/2019 7:54 PM Note Text: Said that after her surgery in 2016 her left pinky and ring finger are numb but she said lately her other fingers on that hand have been getting numb as well. [facility] ED NOTE HNO ID: [id number] Author: Vanessa (Rn) MERA Ruiz Service: ? Author Type: Registered Nurse Type: ED Notes Filed: 06/19/2019 6:48 PM Note Text: Patient has chronic neck pain for three years. Saw spine doctor 06/12/2019 for the same had x rays. Denies any new injury. States pain goes into left arm. Arrived via wheelchair [facility] ED PROV NOTEon 06-19-2019 ED PROV NOTE HNO ID: [id number] Author: Tracy Arredondo Service: Emergency Medicine Author [...] light touch over bilateral lower extremities. 3/5 block out machine operator, bicep, tricep strength over LUE. Decreased sensation to light touch over left upper extremity in median, radial, and ulnar nerve distribution. 5/5 block out machine operator, bicep, tricep strength of R UE. [...] neurosurgical consult as previous notes from her document preparation specialist recommend obtaining EMG and possible further [...] a neurosurgical consult she warrants transfer to [facility] for further management of her condition. We have low suspicion for stroke at this time as pain appears to be radicular in nature and she has had worsening progression of her symptoms with documented notes from spine (Dr. Álvarez) suggesting this worsening pain and numbness. The CLAIM INSPECTOR, Talita, at [facility] recommended we obtain a CT brain and she must rule out any acute intercranial abnormality that may be contributing to the patient's symptoms. Therefore, this study was ordered and will be followed up by the night team especially if there is any acute intracranial abnormality. As long as there is no acute intracranial abnormality she will be transferred to [facility] for further evaluation and management of her condition. Patient voiced understanding was in agreement with the above plan. This patient's case was discussed with Dr. rAredondo who personally evaluated the patient supervised her care. The patient was TRANSFERRED to: [facility] Condition at time of disposition: stable SIGNATURE: NORMA Montgomery (Pa) 06/20/19 0026 Attending Note I have personally performed a face to face assessment of the patient and have reviewed the PA/COLD PATCHER note. My schofield findings include: History is [...] of 5 strength left upper extremities in block out machine operator strength as well as biceps and [...] worsening neck pain we will place her [facility] for cardiac rule out as well [...] and requested by the observation provider at [facility] as they were concerned about stroke. However I doubt this and did not feel this was necessary however it is currently pending and patient will be transferred to [facility] if this is unremarkable. Signature: Tracy Arredondo DO Date: 06/20/2019 Time: 12:26 AM Tracy Arredondo 06/20/19 0033 Normal [facility] Magnesiumon 06-19-2019 Magnesium [Mass/Vol] 2.0 mg/dL Normal 1.7-2.3 [facility] Troponin Ton 06-19-2019 Troponin T.cardiac [Mass/Vol] ug/L Normal 0.000-0.029 [facility] CNOVon 06-12-2019 CNOV Office Visit (SPNMMN ) MORALES LEE ([id number]) 1975 F Date Time Provider Department 06/12/19 [...] file Gets together: Not on file Attends jainism service: Not on file Active member of [...] [Z98.890] Order(s):PATIENT PLACED ON SPINE CARE PATH [[id number]] Order #: [id number]: 1 XR SCOLIOSIS PA STAND/LAT 2V [[id number]] Order #: [id number] FUTURE EMG(NEURO/NI) [[id number]] Order #: [id number]: 1 FUTURE CONSULT TO SPINE SURGERY [[id number]] Order #: [id number]: 1 FUTURE Prescriptions as of 06/12/2019 Sig: [...] Status:Closed by DIXIE TEE MD on 06/12/19 [facility] PROGRESSon 06-12-2019 PROGRESS HNO ID: [id number] Author: Zoey Aponte (RtRobert Montiel Service: Radiology Author Type: Transcription Typist Type: Progress Notes Filed: 06/12/2019 10:10 AM [...] RT Daxa June 12, 2019 10:09 AM [facility] PROGRESS HNO ID: [id number] Author: Dixie Tee Service: ? Author Type: [...] file Gets together: Not on file Attends jainism service: Not on file Active member of [...] healed incisions. Chest: symmetric expansion Data Review: [facility] records reviewed Care everywhere Lumbar CT [...] June 12, 2019 TIME: 8:12 AM [facility] XR SCOLIOSIS 2V PA STAND/LAT on [...] changes and multilevel compression deformities as described. Wood Mechanist: PSCB Transcribe Date/Time: Jun 12 2019 4:36P Dictated by : CAROLINA MOJICA MD This examination was interpreted and the report reviewed and electronically signed by: CAROLINA MOJICA MD on Jun 12 2019 4:39PM EST [id number] [facility] PROGRESSon 05-14-2019 PROGRESS HNO ID: [id number] Author: Laury Levin Service: ? Author Type: Physician Buggy Ladle Tender Type: Progress Notes Filed: 05/14/2019 1:26 PM [...] to rule out cubital tunnel syndrome. [facility] PROGRESSon 05-09-2019 PROGRESS HNO ID: [id number] Author: Kathia Kelly Service: ? Author Type: ? Type: Progress Notes Filed: 05/14/2019 1:26 PM Note Text: Patient name: Morales Lee Are you being referred by a [facility] Provider or Pain Management Provider at [facility]? No If answer is YES please schedule directly with surgeon, triage does not need to be completed. Is this a self-referral No If not, who is the Referring Provider: Dr. Hend[facility]/ [facility] MRI/CT/myelogram within 12 months: Yes If No , please refer to medical spine or PCP to complete above imaging, triage does not need to be completed Imaging viewable in Epic: No If not, please provide [phone] to fax in imaging reports for review. [...] will fax imaging report and op notes. [phone] [facility] CT-CT C-SPINE WO CON IMPORTo n 02-13-2019 CT-CT C-SPINE WO CON IMPORT Images were obtained outside of [facility] [id number] [facility] CT-CT L-SPINE WO CON IMPORTo n 02-13-2019 CT-CT L-SPINE WO CON IMPORT Images were obtained outside of [facility] [id number] [facility] Vital Signs Date Time Vital Sign Value Performing Clinician Facility 06-07-2022 12:48-0400 Diastolic blood pressure 83 mm[Hg] No Pcp Required [facility] 06-07-2022 12:48-0400 Heart rate 67 /min No Pcp Required [facility] 06-07-2022 12:48-0400 Respiratory rate 16 /min No Pcp Required [facility] 06-07-2022 12:48-0400 SaO2% (BldA) [Mass fraction] 96 % No Pcp Required [facility] 06-07-2022 12:48-0400 Systolic blood pressure 148 mm[Hg] No Pcp Required [facility] 01-06-2022 10:51-0400 Blood Pressure Location NATALIA MANNING [facility] 01-06-2022 10:51-0400 Diastolic blood pressure 86 mm[Hg] NATALAI SCHMIDTRY [facility] 01-06-2022 10:51-0400 Heart rate 86 /min NATALIA MANNING [facility] 01-06-2022 10:51-0400 Respiratory rate 16 /min NATALIA MANNING [facility] 01-06-2022 10:51-0400 Systolic blood pressure 132 mm[Hg] NATALIA MANNING [facility] 09-08-2021 14:15-0500 Body height 149.86 cm No PCP None MG-Neurosurgery- Ah uja Work Phone: 09-08-2021 14:15-0500 Body mass index (BMI) [Ratio] 36.96 kg/m2 No PCP None MP-Czbtuosfurrd-Px uja Work Phone: 09-08-2021 14:15-0500 Body surface area Derived from formula 1.78 m2 No PCP None YS-Ukrqqyxlujec-Pm uja Work Phone: 09-08-2021 14:15-0500 Body weight 83.01 kg No PCP None [facility]-Neurosurgery- Ah uja Work Phone: 09-08-2021 14:15-0500 Diastolic blood pressure 68 mm[Hg] No PCP None OP-Koqznkdtgsfh-Rg uja Work Phone: 09-08-2021 14:15-0500 Heart rate 96 /min No PCP None [facility]-Neurosurgery- Ah uja Work Phone: 09-08-2021 14:15-0500 Respiratory rate 16 /min No PCP None MG-Neurosurgery -Ah uja Work Phone: 09-08-2021 14:15-0500 Systolic blood pressure 115 mm[Hg] No PCP None EW-Tjuhcsvbfhcj-Vt uja Work Phone: 09-08-2021 14:15-0500 0 1 No PCP None [facility]-Neurosurgery- Ah uja Work Phone: Comment on above: [facility] 01-01-2021 16:46-0400 Heart rate 111 /min No Pcp Required [facility] 01-01-2021 16:46-0400 SaO2% (BldA) [Mass fraction] 95 % No Pcp Required [facility] 01-01-2021 14:00-0400 Body temperature 96.8 [degF] No Pcp Required [facility] 01-01-2021 14:00-0400 Diastolic blood pressure 77 mm[Hg] No Pcp Required [facility] 01-01-2021 14:00-0400 Respiratory rate 18 /min No Pcp Required [facility] 01-01-2021 14:00-0400 Systolic blood pressure 114 mm[Hg] No Pcp Required [facility] Encounters Encounter Date Encounter Type Care Provider Facility Start: 03-27-2024 End: 03-31-2024 Pre-admission assessment LEX FREDERICK [facility] Start: 03-26-2024 End: 04-07-2024 Pre-admission assessment LEX FREDERICK [facility] Start: 10-10-2023 Orders Only Shaikh Micah HARKINS [...] encounter procedure Danya Bingham [facility] Start: 11-22-2022 ambulatory SHAIKH Shirley FABillyWAD Facilit y:H1 Start: 11-09-2022 End: 11-09-[address] DEVANTE ELIZONDO . Facility:H1 Start: 10-15-2022 End: 10-15-2022 ambulatory KYRA SILVA . Facility:H1 Start: 09-24-2022 End: 09-24-2022 Patient encounter procedure Danya Bingham [facility] Start: 09-01-2022 Encounter for preprocedural laboratory examination DANYA BINGHAM . [facility] Start: 08-25-2022 End: 08-25-2022 ambulatory MENDOSA H FAWWAD Facility:H1 Start: 08-24-2022 End: 08-25-2022 ambulatory MENDOSA H FAWWAD Facility:H1 Start: 08-24-2022 End: 08-25-2022 Encounter for preprocedural laboratory examination MENDOSA H FAWWAD Facility:H1 Start: 08-21-2022 ambulatory MENDOSA H FAWWAD Facilit y:H1 Start: 07-16-2022 End: 07-16-2022 Patient encounter procedure Danya Bingham [facility] Start: 06-06-2022 End: 06-07-2022 Emergency department patient visit Yony Aguirre [facility] Adult ED Blue 45 Start: 05-31-2022 End: 05-31-[address] ALEXANDRU SORIA . Facility:H1 Start: 05-19-2022 End: 05-19-2022 Off-Site Danya Bingham [facility] [place] Start: 05-07-2022 End: 05-07-2022 ambulatory SHAIKH Shirley [...] 02-04-2022 Off-Site Danya Bingham [facility] Start: 01-11-2022 Chart Update No PCP None MG-Neurosu [facility] [place] Work Phone: Start: 01-11-2022 End: 01-11-2022 Patient encounter procedure Danya Bingham [facility] Start: 01-07-2022 AUDIT No PCP None MG-Neurosu [facility] [place] [address] Work Phone: Start: 01-06-2022 End: 01-06-2022 Patient encounter procedure NATALIA MANNING [facility] Start: 10-13-2021 AUDIT No PCP None MG-Neurosu rgery-Miguel Work Phone: Start: 09-29-2021 AUDIT No PCP None MG-Gastroe nterology-B [facility] 6 I Work Phone: Start: 09-15-2021 End: 10-02-2021 Evaluation and management of inpatient Dr. LEX FREDERICK Facility:[facility] Start: 09-09-2021 AUDIT No PCP None MG-Neurosu rgery-Miguel Work Phone: Start: 09-08-2021 Office outpatient vi sit 40 minutes No PCP None WA-Zsjoueoxpmqd-Lseju Work Phone: Start: 05-05-2021 Postop follow up vis it related to original px No PCP None KK-Rizoblgvuhlm-IMSFL Work Phone: Start: 12-26-2020 End: 01-01-2021 Evaluation and management of inpatient Lex Frederick [facility] [id number] [id number] Preoperative state No PCP None MG-Neuros urgery-[facility] Work Phone: Procedures Date Procedure Procedure Detail Performing Clinician Start: 09-21-[address] EFRAIN FREDERICK Comment on above: Performed By: #### A FPA3 #### [facility] [address] [place] [address] Start: 09-21-[address] EFRAIN FREDERICK Comment on above: Order Comment: CUADRAJacque ESPINO, 09/21/2021 05:08TEST TYPE + SCREEN WAS CANCELLED, 09/21/2021 05:06 NO PHLEB ID ON TUBE. Result Comment: CALL ED MERA ESPINO, 09/21/2021 05:08 Performed By: #### A FPA3 #### [facility] [address] [place] [address] Start: 09-17-[address] EFRAIN FREDERICK Comment on above: Performed By: #### T +S #### [facility] [address] [place] [address] Start: 12-27-2020 End: 12-28-2020 Release Blood Product-Packed Red Blood Cells Devante Murphyta Start: 12-26-2020 Renal function 2000 panel - Serum or Plasma Nabil Awan Appendectomy NATALIA MANNING Cholecystectomy NATALIA CHAMBERS Hernia NATALIA MANNING Hysterectomy NATALIA MANNING mylogr NATALIA MANNING Plan of Treatment Date Care Activity Detail Author Start: 10-17-2023 End: 10-17-2023 Patient encounter procedure 10/17/2023 6:30 PM EST Office Visit [facility] [address] [place] [address] Shaikh Obrien MD [address] [place] [id number] [facility] Start: 05-06-2023 Influenza vaccination Influenza Vacc ine (#1) [facility] Start: 11-03-2021 POV, Provider: Lex Frederick, Status: Pen, Time: 2:00 PM POV, Provider: Lex Frederick, Status: Pen, Time: 2:00 PM ZI-Nbvtivbnatblfngn-Hq lwell 6 [facility] Work Phone: Start: 10-07-2021 Admission to [facility] RNVISIT, Provider: NURSE VISIT ASHLEY BROWN,MGNEUROSURGERY, Status: Pen, Time: 10:15 AM HS-Okanooserrikdabx-Ir lwell 6 [facility] Work Phone: Start: 09-18-2021 [facility], Provider: Lex Frederick, Status: Pen, Time: 8:00 AM [facility], Provider: Lex Frederick, Status: Pen, Time: 8:00 AM YR-Wbatbxtsgvuh-Xbalf Work Phone: Start: 01-08-2021 Patient encounter procedure Neurosurgery Miguel Start: 12-31-2020 End: 01-01-2022 [facility] Comment on above: please place at beds geraldine for drain removal Start: 12-26-2020 End: 12-27-2021 Naloxone Injectable 0.4 mg IntraVenous Push Once ; (NARCAN)DOSE = 0.2 mg IntraVenous Push Once, PRN patient is unarousable, and respiratory rate lessClinician Notes: HOLD SPECTROGRAPHIC ANALYST Infusion and notify H.O. immediately Start: 26-Dec-2020 End: 26-Dec-2021 Ordered: 26-Dec-2020 Nabil Awan Intent Comments: HOLD SPECTROGRAPHIC ANALYST Infusion and notify H.O. immediately [facility] Comment on above: HOLD SPECTROGRAPHIC ANALYST Infusion an d notify H.O. immediately Start: 2013 Screening for malignant neoplasm of breast Mammogram [facility] Start: 2003 Screening for malignant neoplasm of cervix [facility] Start: 1994 Screening for malignant neoplasm of cervix Pap Smear [facility] Start: 1973 Screening for malignant neoplasm of colon [facility] Immunizations Immunization Date Immunization Notes Care Provider Delfino chu 02-22-2020 tetanus toxoid, redu luis diphtheria toxoid, and acellular pertussis vaccine, adsorbed Danya Bingham [facility] 12-05-2018 hepatitis A vaccine, adult dosage Danya Bingham [facility] Payers Date Payer Category Payer Unknown 1975 Unknown [id number] 2.16. [id number] 1975 Unknown [id number] .. [id number] 1975 Unknown [id number] 2.16.84 0.1.941183.3.579.2.593 1975 Unknown [id number] 2.16.84 0.1.745960.3.579.2.593 1975 Unknown [id number] 2.16.84 0.1.518501.3.579.2.593 1975 Unknown [id number] 2.16.84 0.1.987397.3.579.2.593 1975 Unknown [id number] 2.16.84 0.1.672555.3.579.2.593 1975 Unknown [id number] 2.16.84 0.1.616683.3.579.2.593 1975 Unknown [id number] 2.16.84 0.1.054120.3.579.2.593 1975 Unknown [id number] 2.16.84 0.1.388283.3.579.2.593 1975 Unknown [id number] 2.16.84 0.1.455039.3.579.2.593 1975 Unknown [id number] 2.16.84 0.1.733870.3.579.2.593 1975 Unknown [id number] 2.16.84 0.1.767336.3.579.2.593 1975 Unknown [id number] 2.16.84 0.1.673826.3.579.2.593 1975 Unknown [id number] 2.16.84 0.1.085051.3.579.2.593 1975 Unknown [id number] 2.16.84 0.1.643644.3.579.2.593 1975 Unknown [id number] 2.16.84 0.1.966848.3.579.2.593 1975 Unknown [id number] 2.16.84 0.1.289606.3.579.2.593 1975 Unknown [id number] 2.16.84 0.1.686917.3.579.2.593 1975 Unknown [id number] 2.16.8 40.1.307799.3.579.2.1046 1975 Unknown [id number] 2.16.8 40.1.810008.3.579.2.727 1959 Unknown [id number] Social History Date Type Detail Facility [facility] [place] Tobacco smoking consumption unknown [facility] Start: 08-01-2023 End: 08-08-2023 History of drug use History of drug use YQ-Ylyxvcryqoer-OYBC C Work Phone: Start: 01-05-2016 End: 08-01-2023 Tobacco smoking status Smokes tobacco daily (finding) [facility] Comment on above: 1ppd 1ppd Start: 08-08-2023 Sex Assigned At Female [facility] History of tobacco use Cigarette Smoker [facility] Start: 08-08-2023 Alcohol intake Lifetime non-d prasanna (finding) [facility] Start: 1975 Sex Assigned At [...] Facility 11-26-2022 Functional Status N/A [facility] 07-16-2022 Functional Status N/A [facility] Functional observable [facility] Mental Status Date Assessment Result Facility 12-29-2020 Cognitive functi ons [id number] [facility] Clinical Notes 12-26-2020 to 11-26-2022 Note Date [...] Document Reviewed: 10/01/2017 Elsevier Patient Education 2019 [employer]. Follow Up Care 10/14/2022 11:11:52 With:Zachery HARKINS, CAROLEE Anderson, URO Address: When: Unknown [facility] 09-23-2022 Hospital Discharg e instructions Patient Education [...] including vitamins, herbs, eye drops, creams, and gcrm-hts-qerbgam medicines. Any problems you or family members [...] provider tells you to take them. Taking ockf-tkz-ixiehbb medicines, vitamins, herbs, and supplements. General instructions [...] Document Reviewed: 10/08/2019 Elsevier Patient Education 2019 [employer]. Follow Up Care 08/31/2022 10:49:10 With:Zachery HARKINS, CAROLEE Anderson, URO Address: When: Unknown [facility] 07-16-2022 Hospital Discharg e instructions Patient [...] nerve stimulation). For women, using a medical receptionist to prevent urine leaks. This is a [...] right after experiencing incontinence. General instructions Take eyud-ige-ddjywrj and prescription medicines only as told by [...] 09/29/2005 Document Revised: 09/01/2018 Document Reviewed: 12/01/2017 [employer] Patient Education 2020 [employer]. Follow Up Care 06/15/2022 11:30:52 With:Zachery HARKINS, CAROLEE Anderson, URO Address: When: Unknown [facility] 02-04-2022 Hospital Discharg e instructions Patient [...] nerve stimulation). For women, using a medical receptionist to prevent urine leaks. This is a [...] right after experiencing incontinence. General instructions Take vcuw-ore-wfzfljf and prescription medicines only as told by [...] 09/29/2005 Document Revised: 09/01/2018 Document Reviewed: 12/01/2017 [employer] Patient Education 2020 [employer]. 02/04/2022 16:23:10 Calorie Counting for Weight Loss [...] 08/22/2006 Document Revised: 05/11/2019 Document Reviewed: 07/22/2017 [employer] Patient Education 2020 [employer]. Follow Up Care 02/04/2022 13:28:46 With:Danya Bignham MD, URL, URO Address: When: Unknown [facility] 01-11-2022 Evaluation + Plan note Extrac alexander [...] and Plan Diagnosis Bowel and bladder incontinence (CYT01-BK R32, Billing Diagnosis, Medical). Incontinence without sensory awareness (OIL44-CT N39.42, Working, Medical). Diagnosis Bowel and bladder incontinence (BPZ00-IB R32, Billing Diagnosis, Medical). Incontinence without sensory awareness (YOT58-FV N39.42, Working, Medical). Addendum by Danya Bingham MD on January 11, 2022 10:23 EDT Post procedure diagnosis: Intrinsic sphincter deficiency, acontractile detrusor [facility]05-09-2022 Hospital Discharge instructions Patient Education 01/11/2022 10:22:42 [...] 01/06/2022 11:41:34 With:Danya Bingham Address: [address] [address]- [phone] Business (1) When: Unknown Comments:Call for followup appointment in 2-3 weeks With:Danya Lue Address:Unknown When: Unknown [facility]05-04-2022 Hospital Discharge instructions Patient Education 01/06/2022 10:27:52 [...] find one near you, check this website: [email or web address]/ [facility]. These are part of a [...] information Learn more about cervical cancer from: [employer]: www.acog.org/Patients/FAQs/Cervical-Cancer [employer]: www.cancer.org/cancer/cervicalcancer/ U.S. Centers for Disease [...] 09/05/2016 Document Revised: 09/23/2018 Document Reviewed: 04/19/2017 [employer] Patient Education 2020 [employer]. Follow Up Care 11/20/2021 10:16:51 With:NIGEL GREEN, NATALIA Santillan, URL Address: [address] [place] [address]. [place] [address] When:01/13/[address] [facility] 01-28-2022 NoteSend Summary: Discharge Summary Providers: [...] Care - New Vital Signs: T PRBPSpO2 Value36.8110455/6394% Date/Time1/28 8: 8: 8: 8: 8:00 Range(36.1C [...] placement 09/23 Patient transitioned from post op SPECTROGRAPHIC ANALYST to oral pain regimen 09/24 Fitted for [...] or twist. Instead, bend at knees to molded goods spot picker objects (more content not included)...[facility]01-26-2022 NoteThis report has been cancelled.[facility]01-17-2022 NotePROCEDURE DETAILS Postoperative Diagnosis: lumbar stenosis Surgeon: Dr. Lex Frederick Resident/Fellow/Other Buggy Ladle Tender: Chery Awan Procedure: posterior L4-L5 decompression posterior [...] Completion Last Updated: 22-Sep-2021 10:54 by Lex Frederick)[facility]01-17-2022 NoteHistory & Physical Reviewed: /Lactating: Are You [...] the note. I personally evaluated the patient [id number] Electronic Signatures: Lex Frederick) (Signed 21-Sep-2021 11:50) Authored: Note Completion Co-Signer: History & Physical Reviewed, ERAS, Consent, Note Completion Jaya Mosquera (Resident)) (Signed 21-Sep-2021 02:51) Authored: History & Physical Reviewed, ERAS, Consent, Note Completion Last Updated: 21-Sep-2021 11:50 by Lex Frederick) References: 1. Data Referenced From MRI Safety Screen v2 19-Sep-2021 19:00[facility]01-15-2022 NoteRehab: Info: Mode of Treatmentoccupational therapy; attempted; OT evaluation initiated with home set-up obtained (1st floor set up/ 0 step entry, lives with , tub shower with chair); Pt with low BP upon arrival 79/54. Second BP reading taken at 71/51. RN notified, further evaluation deferred at this time. OT to reattempt when pt medically appropriate. 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 Exploration of spinal [...] performed and the images transferred to the Signdat system for use in intraoperative image-guided computer-assisted [...] using the torque dri (more content not included)...[facility]01-14-2022 NoteThis report has been cancelled.[facility]01-14-2022 NoteHistory & Physical Reviewed: /Lactating: Are You [...] the note. I personally evaluated the patient [id number] Electronic Signatures: Fidel Maciel (Resident)) (Signed 17-Sep-2021 22:49) Authored: History & Physical Reviewed, ERAS, Consent, Note Completion Lex Frederick) (Signed 19-Sep-2021 10:17) Authored: Note Completion Co-Signer: History & Physical Reviewed, ERAS, Consent, Note Completion Last Updated: 19-Sep-2021 10:17 by Lex Frederick) References: 1. Data Referenced From MRI Safety Screen v2 17-Sep-2021 11:28[facility] System01-11-2022 NoteReferral Information: Consult requested by (Attending Name): [...] be able to m (more content not included)...[facility]01-11-2022 NoteHistory of Present Illness: /Lactating: Are You [...] the note. I personally evaluated the patient [id number] Electronic Signatures: Fidel Maciel (Resident)) (Signed 15-Sep-2021 [...] Plan Last Updated: 16-Sep-2021 10:20 by Lex Frederick)[facility]04-23-2021 History of Present illness Narrative* I just had the pleasure of seeing Mrs. Jesus villarreal in the Neurosurgery Spine Clinic at the [facility]. She is a very pleasant [...] Director - Minimally Invasive Spine Surgery * [facility] * [employer] Operator of Neurological Surgery * [employer] [facility] [employer] * [place], [place] * Some of this note was completed using [employer] voice recognition technology and sometimes the software misinterprets words. This may include unintended errors with respect to translation of words, typographical errors or grammar errors which may not have been identified prior to finalization of the chart note. Please take this into account when reading this note. RQ-[id number]-[id number] Work Phone: [phone]) 991-977604-23-2021 Reason for referral (narrative)* Reason for Referral: Patient s/p posterior bilateral L1 transpedicular decompression, posterior T7-T8, T8-T9, T9-T10, T0-T11, T11-T12, T12-L1 hutton hernandez osteotomies, Posterior T5-L4 instrumentation and fusion on 12/26 [facility] Future Appointments Appointment Date:01/07/2022 11:00:00 AM Scheduled Provider: [facility] Appointment Type:Urology CALL PAT FT Appointment Date:01/11/2022 08:00:00 AM Scheduled Provider: Location:[facility] Appointment Type:Urology FT Appointment Date:01/11/2022 09:00:00 AM Scheduled Provider: Location:[facility] Appointment Type:Urology FT [facility] + [facility] + Plan note Future Appointments Appointment Date:04/06/2024 12:00:00 PM Scheduled Provider: Location:.MRI Appointment Type:MRI Spine (FT) Appointment Date:04/06/2024 12:00:00 PM Scheduled Provider: Location:[facility] Appointment Type:Surgery FT Future Scheduled Tests Radiology* MRI Spine Cervical w/o Contrast 04/06/24 * MRI Spine Lumbar w/o Contrast 04/06/24 * MRI Spine Thoracic w/o Contrast 04/06/24 [facility] Evaluation note* Neurological: [id number] 5/5 except hg/io4+ble 5/5incision cdiHead/Neck: Ox3, awake, alertBUE 5 prox, HG/IO4+BLE HF/KE/DF/PF/EHL 5 [facility]* Constitutional: in no acute distressSkin: Well perfusedEyes: OU 3RHead/Neck: atraumatic, normocephal icRespiratory/Thorax: airway intact, good chest expansionCardiovascular: normal rate, regular rhythmGastrointestinal: non-tenderNeurological: NAD, A&[id number] Nerves II-XII: PERRL, EOMI, Face symmetric, Facial SILT, Palate/Tongue midline and symmetric, shoulder shrugs symmetric, hearing intact to finger rubs bilaterallyMotor: RUE D5, B5, T5, HG5, IO5LUE D5, B5, T5, HG5, IO5RLE HF 4+, KE4+, PF4-, DF3LLE HF 4+, KE4+, PF3, DF4-Sensation: SILT throughout all extremitiesPsychological: mood appropriate [facility]* Diagnosis Chronic low back pain, unspecified back pain laterality, unspecified whether sciatica present- Primary Nausea in adult documented in this [facility] N[facility]ative No data available for this section [facility] Discharge instructions* Activity:activity as [...] Certification:Home Care Services Needed: yesSkilled Disciplines Ordered: RN/COMMERCIAL KITCHEN SERVICE TECHNICIAN, PT, OTFace to Face Encounter Completed: yesDate of Encounter: [id number] Necessity for Homecare (based on clinical findings): [...] washing dishes, & loading the dryer or german teacher until cleared by MD. * Wound Care:Inspect [...] and/or calves. * Follow-Up - Neurosurgeon:Physician/Dept/Service: NeurosurgeonDr [place] [place] Date/Time: 08-Jan-2021 10:40Location: [facility], [facility] [address] [place], [place]Phone Number: [phone]: 2 week postop/wound check visit; Bring Insurance Card and Photo ID [facility] Discharge instructions No data available for this section [facility] progress note No data available for this section [facility] reason for referral (narrative) , urinary incontinence, neurogenic bladder, open bladder neck, possible SP tube placement Referred by: Zachery HARKINS, Danya Rhodes [facility] Summary Purpose Family History Unknown Family [...] DATE CREATED AUTHOR AUTHOR'S ORGANIZ ATION 06/20/2019 [facility] DATE CREATED AUTHOR AUTHOR'S ORGANIZ ATION 07/26/2019 [facility] DATE CREATED AUTHOR AUTHOR'S ORGANIZ ATION 12/29/2020 [facility] DATE CREATED AUTHOR AUTHOR'S ORGANIZ ATION 09/16/2021 [facility] DATE CREATED AUTHOR AUTHOR'S ORGANIZ ATION 11/25/2021 [facility] DATE CREATED AUTHOR AUTHOR'S ORGANIZ ATION 12/10/2021 [facility] DATE CREATED AUTHOR AUTHOR'S ORGANIZ ATION 08/06/2022 [facility] DATE CREATED AUTHOR AUTHOR'S ORGANIZ ATION 01/17/2023 [facility] DATE CREATED AUTHOR AUTHOR'S ORGANIZ ATION 06/09/2023 [facility] DATE CREATED AUTHOR AUTHOR'S ORGANIZ ATION 12/29/2023 [facility] <item><item> Privacy Markings (unrecogniz ed section [...] Personnel Name: SHAIKH OBRIEN MD Address: Address: [address] [place] [id number] Transportation Mechanic Relationship Specialty Start Date End Date Shaikh [...] BE BASED ON THE PRIMARY CLINICAL RECORDS. [employer] provides no warranty or guarantee of the accuracy or completeness of information in this document.
== END 2024-05-14 22:11 | disposition home or self-care (01) ==
LOC: LAB 22:10
PROVIDERS: PCP Internal Medicine
DX: Z51.81 Encounter for therapeutic drug level monitoring (principal); Z79.899 Other long term (current) drug therapy
CPT/HCPCS: 80326; 80331; 80334; 80337; 80338; 80341; 80344; 80346; 80348; 80353; 80354; 80355; 80357; 80358; 80359; 80360; 80361; 80364; 80365; 80366; 80367; 80368; 80370; 80371; 80372; 80373; 80377; 82570; 83992

== ENCOUNTER 2024-05-31 09:46 | Emergency (ER) | payer BC, SELFPAY ==
[2024-05-31 09:54] VITALS: BP 137/82; PULSE 75; TEMP 36.7; O2SAT 96; BMI 30.1
--- NOTE | 2024-05-31 10:09 | ED_ITS ---
HPI HPI - General Adult General Stated complaint: CATHETER REMOVAL Time Seen by Provider: 05/31/24 09:47 Source: patient Mode of arrival: Wheelchair Limitations: no limitations History of Present Illness HPI narrative: 49-year-old female presented because her Alvares catheter fell out. She states it fell out during the night. She has a chronic indwelling Alvares catheter. She also states that she was discharged from the physician's practice because she tested positive for oxycodone and wanted to get another drug screen done to prove she is not on it. Related Data Home Medications ?Medication ?Instructions ?Recorded ?Confirmed buprenorphine 8 mg-naloxone 2 mg 2.5 film sublingual Q24H 03/01/23 05/06/24 sublingual film cyclobenzaprine 10 mg tablet 10 mg PO Q8H 03/01/23 05/06/24 diazepam 5 mg tablet 5 mg PO Q8H PRN anxiety 03/30/23 05/06/24 furosemide 40 mg tablet 40 mg PO DAILY 03/30/23 05/06/24 gabapentin 800 mg tablet 800 mg PO TID 03/30/23 05/06/24 oxybutynin chloride 15 mg 15 mg PO DAILY 03/30/23 05/06/24 tablet,extended release 24 hr potassium bicarbonate-citric acid 20 meq PO BID 03/30/23 05/06/24 20 mEq effervescent tablet (Effer-K) tizanidine 4 mg tablet 4 mg PO Q8H PRN muscle spasticity 03/30/23 05/06/24 zolpidem 12.5 mg tablet,extended 12.5 mg PO DAILY 03/30/23 05/06/24 release,multiphase fluoxetine 10 mg capsule 10 mg PO DAILY 05/06/24 05/06/24 Previous Rx's ?Medication ?Instructions ?Recorded ondansetron 4 mg disintegrating 4 mg PO Q8H PRN nausea and 05/07/24 tablet vomiting 0 days #30 tabs Allergies Allergy/AdvReac Type Severity Reaction Status Date / Time codeine Allergy Severe rash Verified 05/06/24 20:33 Penicillins Allergy Severe Anaphylaxis Verified 05/06/24 20:33 quetiapine [From Seroquel] Allergy Severe Seizure Verified 05/06/24 20:33 Opioid HPI Opioid Management Most Recent Opioid Data: Last Pain Scale 8 11/21/23 09:41 Urine Drug Screen Interp Final (.) 05/14/24 09:30 Review of Systems ROS Narrative A ten point review of systems is negative except as noted above. PFSH PFS Social History Smoking status: Current every day smoker Little interest or pleasure in doing things: not at all Feeling down, depressed, or hopeless: not at all Exam Narrative Exam Narrative: Nurses note and vital signs reviewed and patient is not hypoxic. General: The patient appears well and in no apparent distress. Patient is resting on cart. Skin: Warm, dry, no pallor noted. There is no rash noted. Head: Normocephalic, atraumatic Eye: Normal conjunctiva, no drainage Ears, Nose, Mouth, and Throat: oral mucosa is moist. Nares patent. Cardiovascular: Regular Rate and Rhythm Respiratory: Patient is in no distress, no accessory muscle use Back: non-tender, no CVA tenderness bilaterally to percussion. GI: Nondistended Musculoskeletal: The patient has no evidence of calf tenderness, no pitting edema, symmetrical pulses noted bilaterally Neurological: Awake and alert Psychiatric: Cooperative Constitutional Vital Signs, click to edit/add: Last Vital Signs Temp 98.1 F 05/31/24 09:54 Pulse 75 05/31/24 09:54 Resp 18 05/31/24 09:54 BP 137/82 05/31/24 09:54 Pulse Ox 96 05/31/24 09:54 O2 Del Method Room Air 05/31/24 09:54 Course Vital Signs Vital signs: Vital Signs Temperature 98.1 F 05/31/24 09:54 Pulse Rate 75 05/31/24 09:54 Respiratory Rate 18 05/31/24 09:54 Blood Pressure 137/82 05/31/24 09:54 Pulse Oximetry 96 05/31/24 09:54 Oxygen Delivery Method Room Air 05/31/24 09:54 Temperature 98.1 F 05/31/24 09:54 Pulse Rate 75 05/31/24 09:54 Respiratory Rate 18 05/31/24 09:54 Blood Pressure 137/82 05/31/24 09:54 Pulse Oximetry 96 05/31/24 09:54 Oxygen Delivery Method Room Air 05/31/24 09:54 Medical Decision Making MDM Narrative Medical decision making narrative: Alvares catheter replaced. I have declined to perform a urine drug screen as this is not an emergent situation. It was explained to the patient that issues of taking drugs are between her and her own physician. Differential Diagnosis Differential Diagnosis: Alvares catheter replacement Discharge Plan Discharge Clinical Impression: Urinary catheter (Alvares) change required Patient Disposition: Home, Self-Care Time of Disposition Decision: 10:08 Condition: Good Mode of Transportation: Private Vehicle Prescriptions / Home Meds: No Action diazepam 5 mg tablet 5 mg PO Q8H PRN (Reason: anxiety) furosemide 40 mg tablet 40 mg PO DAILY gabapentin 800 mg tablet 800 mg PO TID oxybutynin chloride 15 mg tablet extended release 24hr 15 mg PO DAILY Effer-K 20 mEq tablet, effervescent 20 meq PO BID tizanidine 4 mg tablet 4 mg PO Q8H PRN (Reason: muscle spasticity) zolpidem 12.5 mg tablet,ext release multiphase 12.5 mg PO DAILY Rx Instructions: HS fluoxetine 10 mg capsule 10 mg PO DAILY ondansetron 4 mg tablet,disintegrating 4 mg PO Q8H PRN (Reason: nausea and vomiting) Qty: 30 0RF buprenorphine-naloxone 8-2 mg film 2.5 film sublingual Q24H cyclobenzaprine 10 mg tablet 10 mg PO Q8H Print Language: Lithuanian Instructions: Alvares Catheter Placement and Care (ED) Referrals: Shaikh Obrien MD [Primary Care Provider] - 1 week
--- OUTSIDE RECORDS SUMMARY | 2024-05-31 10:14 | XMS_ITS | CCD ---
Author Organization [facility] Care Team Providers Care Hand Twister Name Role Phone Required, No Pcp Unavailable Unavailable Lex Frederick Unavailable None, No PCP Unavailable Unavailable Unavailable Unavailable SHAIKH OBRIEN Primary Care Physician Yony Aguirre Unavailable Unavailable Neurosurgery Unavailable Unavailable OTONIEL, Dr. LEX DE LOS SANTOS Admitting Unava ilable Dr. LEX FREDERICK Attending [...] Admitting Unavailable DR CLIF HUTTON Consulting Unavailable MICAH, MENDOSA H Primary Care Unavailable URIAH, DR CLIF Santana Attending Unavailable IVON AMARO Admitting Unavailable VETO .IVON Consulting Unavailable FAWWAD, MENDOSA H Primary Care Unavailable IVON AMARO Attending Unavailable LALI BENITEZ Admitting Unavailable LALI BENITEZ Consulting Unavailable FAWWAD, MENDOSA H Primary Care Unavailable LALI BENITEZ Attending Unavailable FAWWAD, MENDOSA H Primary Care Unavailable ZACHERY .DANYA Admitting Unavailable LUJacque .DANYA Attending Unavailable MICAH, MENDOSA H Primary Care Unavailable LUJacque .DANYA Admitting Unavailable LUE .DANYA Consulting Unavailable LUJacque .DANYA Attending Unavailable JON, DR ABHINAV Livingston Attending Unavailabl e [facility] Unavailable REINMAXINE, DR ABHINAV Livingston Admitting Unavailabl e REINECK, DR ABHINAV Livingston Consulting Unavailabl e VETO ., IVON Admitting Unavailable VETO ., IVON Attending Unavailable [facility] Primary Care Unavailable PATRICK, DEBORAH Aponte Consulting Unavailable [facility] Primary Care Unavailable REINMAXINE, DR ABHINAV Livingston Admitting Unavailabl e REINECK, DR ABHINAV Living[place] Consulting Unavailabl e REINECK, DR ABHINAV Livingston Attending Unavailabl e HAY ., DR LOW Admitting Unavailable [facility] Primary Care Unavailable HAY ., DR LOW Attending Unavailable ZIEBER, DR ENRIQUE Santana Consulting Unavailable HAY ., DR LOW Consulting Unavailable LUE ., DANYA M Admitting Unavailable LUE ., DANYA M Attending Unavailable DENTON PEACOCK Primary Care Unavailable [facility] Primary Care Unavailable LUE ., DANYA M Admitting Unavailable LUE ., DANYA M Consulting Unavailable LUE ., DANYA M Attending Unavailable CANDICE MATTA Consulting Unava RACHEL Oconnor Consulting Unavailable DIAB ., KYRA Admitting Unavailable [facility] Primary Care Unavailable DIAB ., KYRA Attending Unavailable GRECHNY .BONITA Consulting [facility]availabl e [facility] Unavailable LUE ., DANYA M Admitting Unavailable LUE ., DANYA M Consulting Unavailable LUE ., DANYA M Attending Unavailable PAY ., DR RODRIGUEZ Admitting Unavailable PAY ., DR RODRIGUEZ Consulting Unavailable [facility] Primary Care Unavailable PAY ., DR RODRIGUEZ Attending Unavailable [facility] Primary Care Unavailable JON, DR ABHINAV Livingston Admitting Unavailabl e JON, DR ABHINAV [place] Consulting Unavailabl e JON, DR ABHINAV [place] Attending Unavailabl KORIN Mccarthy Consulting Unavailable Otoniel, Dr. Lex De Los Santos Attending Shellyva ollie Obrien MD, [facility] Primary Care Provider [phone] [facility] Primary Care Unavailable Lue, Danya Aponte. Attending Unavailable SHAIKH OBRIEN Attending Unavailable SHAIKH OBRIEN Attending GENNY Herring Attending Willieabl e Allergies Allergy Classification Reported Allergen(s) Allergy Type Date of Onset Reaction(s) Facility Opioid Agonists (1 source) Codeine Drug Allergy Unknown [facility] Penicillins (antibiotic) (1 source) Penicillin Drug Allergy Unknown [facility] QUEtiapine (1 source) QUEtiapine Drug Allergy Unknown [facility] (20 sources) Codeine; Translations: [Codeine] Drug Allergy 3 Hives [facility] Work Phone: (20 sources) Penicillins; Translations: [Penicillins] Allergy to drug (finding) Hives, Unknown [facility]Neuro[facility] Work Phone: (10 sources) Promethazine; Translations: [promethazine] Drug Allergy [facility] (1 source) QUEtiapine Drug Allergy Seizures [facility] (2 sources) Codeine Drug Allergy 3 [facility] Rep[facility] (3 sources) gabapentin; Translations: [Neurontin] Drug Allergy [facility] (1 source) Levamisole Drug Allergy [facility] (1 source) Morphine Drug Allergy 0 [facility] (2 sources) Penicillins Drug allergy (disorder) 3 [facility] (1 source) QUEtiapine Drug Allergy 3 [facility] (1 source) Penicillins Drug Allergy 3 Hives, GI intolerance [facility] Healthcare (1 source) QUEtiapine Drug Allergy 3 Unknown [facility] Healthcare Medications Current Medications Medication Drug [...] 2 cap(s), Refills(s) 0, [facility]: [facility][id number], 156, cm, 07/16/22 10:58:00 EST, Height/Length Dosing, [...] day(s), # 2 tab(s), Refills(s) 0, Pharmacy: [place] [id number] [facility], 156, cm, 01/06/22 10:53:00 EDT, Height/Length [...] Allowed docusate sodium 50 mg / sennosides, mcc 8.6 mg oral tablet (2 sources) Start: [...] Active Start: 09-30-2021 take 1 capsule by [facility] once daily DULoxetine 30 mg oral [...] Needed Quantity: 0 Refills: 0 Ordered: 15-Sep-2021 EganNemesioen Generic Substitution Allowed take 1 tablet by [...] Daily, # 30 tab(s), Refills(s) 3, Pharmacy: [address], 156, cm, 02/04/22 15:47:00 EDT, Height/Length Dosing, 78, kg, 02/04/22 15:47:00 EDT, Weight Dosing Start Date: 02/25/22 Status: Ordered nystatin 100 unt/mg topical powder (1 source) Polyene Antifungal Start: 03-07-2023 Nyamyc 685996 UNIT/GM powder Apply 1 application topically in [...] 30 tab(s), Refills(s) 11, [facility]: [facility] #[id number], 156, cm, 07/16/22 10:58:00 EST, Height/Length Dosing, 78, kg, 07/16/22 10:58:00 EST, Weight Dosing Start Date: 10/04/22 Status: Ordered Start: 07-16-2022 take 1 tablet by marlen th once daily oxybutynin 10 mg ER Tab 10 mg = 1 tab(s), Oral, Daily, # 30 tab(s), Refills(s) 11, [facility]: [facility] #[id number], 156, cm, 07/16/22 10:58:00 EST, Height/Length Dosing, 78, kg, 07/16/22 10:58:00 EST, Weight Dosing Start Date: 07/16/22 Status: Ordered Start: 03-10-2022 take 1 tablet by marlen once daily oxybutynin 10 mg ER Tab 10 mg = 1 tab(s), Oral, Daily, # 30 tab(s), Refills(s) 3, [facility] [facility], 156, cm, 02/04/22 15:47:00 EDT, Height/Length [...] 07-Jan-2021 Generic Substitution Allowed polyethylene glycol 3350 54345 mg powder for oral solution (2 sources) [...] Start: 10-02-2021 take 1 tablet by marlen every eight hours tiZANidine 2 mg oral [...] Daily, # 30 cap(s), Refills(s) 0, Pharmacy: [address], 156, cm, 01/07/22 13:43:00 EDT, Height/Length [...] food., # 2 cap(s), Refills(s) 0, Pharmacy: [facility] #[id number], 156, cm, 11/26/22 8:15:00 EDT, Height/Length Dosing, [...] Discontinued Generic Substitution Allowed polyethylene glycol 3350 260724 mg / potassium chloride 2970 mg / sodium bicarbonate 6740 mg / sodium chloride 5860 mg / sodium sulfate 74512 mg powder for oral solution (8 sources) [...] spine] Episodic Other aftercare (2 sources) Other 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#1.00CD:127 [facility] ED Note-Physician [id number]#1.00CD:127 [facility] Lab Reportson 01-22-2023 Lab Reports [id number]#1.00CD:127 [facility] Patient Correspondenceon Patient Correspondence [id number]#1.00CD:127 [facility] CULTURE URINEon 01-16-2023 CULTURE URINE [...] R F Nitrofurantoin <=16 S F Normal [facility] Comment on above: Performed By: #### U MICRO, ERUR #### [facility] [address] [place] [address] Dr. Alfredo Lizama CBC AUTO DIFFon 01-13-2023 BASO # 0.1 103/ul Normal 0.0-0.1 [facility] Comment on above: Performed By: #### U MICRO, ERUR #### [facility] [address] [place] [address] Dr. Alfredo Lizama Basophils/100 WBC (Bld) 0.7 % Normal 0.2-2.0 [facility] Comment on above: Performed By: #### U MICRO, ERUR #### [facility] [address] [place] [address] Dr. Alfredo Lizama EO # 0.3 103/ul Normal 0.0-0.7 [facility] Comment on above: Performed By: #### U MICRO, ERUR #### [facility] [address] [place] [address] Dr. Alfredo Lizama Eosinophils/100 WBC (Bld) 3.2 % Normal 0.9-7.0 [facility] Comment on above: Performed By: #### U MICRO, ERUR #### [facility] [address] [place] [address] Dr. Alfredo Lizama Erythrocyte distribution width (RBC) [Ratio] 13.0 % Normal 11.0-15.0 [facility] Comment on above: Performed By: #### U MICRO, ERUR #### [facility] [address] [place] [address] Dr. Alfredo Lizama Hematocrit (Bld) [Volume fraction] 43.2 % Normal 36.0-48.0 [facility] Comment on above: Performed By: #### U MICRO, ERUR #### [facility] [address] [place] [address] Dr. Alfredo Lizama Hemoglobin (Bld) [Mass/Vol] 14.1 g/dL Normal 12.0-16.0 [facility] Comment on above: Performed By: #### U MICRO, ERUR #### [facility] [address] [place] [address] Dr. Alfredo Lizama IG # 0.02 10e3/ul Normal 0.00-0.03 [facility] Comment on above: Performed By: #### U MICRO, ERUR #### [facility] [address] [place] [address] Dr. Alfredo Lizama IG % 0.2 % Normal 0.0-0.5 [facility] Comment on above: Performed By: #### U MICRO, ERUR #### [facility] [address] [address] [address] Alfredo Lizama LYMPH # 3.0 103/ul Normal 1.2-3.8 [facility] Comment on above: Performed By: #### U MICRO, ERUR #### [facility] [address] [place] [address] Dr. Alfredo Lizama Lymphocytes/100 WBC (Bld) 35.6 % Normal 20.5-60.0 [facility] Comment on above: Performed By: #### U MICRO, ERUR #### [facility] [address] [place] [address] Dr. Alfredo Lizama MANUAL DIFF REQ NO Normal [facility] Comment on above: Performed By: #### U MICRO, ERUR #### [facility] [address] [place] [address] Dr. Alfredo Lizama MCH (RBC) [Entitic mass] 29.4 pg Normal 26.7-34.0 [facility] Comment on above: Performed By: #### U MICRO, ERUR #### [facility] [address] [address] [address] Alfredo Lizama MCHC (RBC) [Mass/Vol] 32.6 g/dL Normal 29.9-35.2 [facility] Comment on above: Performed By: #### U MICRO, ERUR #### [facility] [address] [place] [address] Dr. Alfredo Lizama MCV (RBC) [Entitic vol] 90.0 fL Normal 81.0-99.0 [facility] Comment on above: Performed By: #### U MICRO, ERUR #### [facility] [address] [address] [address] Alfredo Lizama MONO # 0.4 103/ul Normal 0.3-0.8 [facility] Comment on above: Performed By: #### U MICRO, ERUR #### [facility] [address] [place] [address] Dr. Alfredo Lizama Monocytes/100 WBC (Bld) 4.8 % Normal 1.7-12.0 [facility] Comment on above: Performed By: #### U MICRO, ERUR #### [facility] [address] [place] [address] Dr. Alfredo Lizama NEUT # 4.7 103/ul Normal 1.4-6.5 [facility] Comment on above: Performed By: #### U MICRO, ERUR #### [facility] [address] [place] [address] Dr. Alfredo Lizama Neutrophils/100 WBC (Bld) 55.5 % Normal 43.0-75.0 [facility] Comment on above: Performed By: #### U MICRO, ERUR #### [facility] [address] [place] [address] Dr. Alfredo Lizama Platelet mean volume (Bld) [Entitic vol] 9.5 fL Normal 9.5-13.5 [facility] Comment on above: Performed By: #### U MICRO, ERUR #### [facility] [address] [place] [address] Dr. Alfredo Lizama PLT 267 103/ul Normal 150-450 [facility] Comment on above: Performed By: #### U MICRO, ERUR #### [facility] [address] [place] [address] Dr. Alfredo Lizama RBC 4.80 106/ul Normal 4.20-5.40 [facility] Comment on above: Performed By: #### U MICRO, ERUR #### [facility] [address] [place] [address] Dr. Alfredo Lizama WBC 8.5 103/ul Normal 4.0-11.0 [facility] Comment on above: Performed By: #### U MICRO, ERUR #### [facility] [address] [place] [address] Dr. Alfredo Lizama ER URINE PROFILEon 3 Bilirubin Ql (U) Negative Normal NEGATIVE [facility] Comment on above: Performed By: #### CHINMAY CHAVESRO #### [facility] [address] [place] [address] Dr. Alfredo Lizama Clarity (U) CLOUDY Abnormal CLEAR [facility] Comment on above: Performed By: #### CHINMAY CHAVESRO #### [facility] [address] [place] [address] Dr. Alfredo Lizama Color (U) YELLOW Normal YELLOW [facility] Comment on above: Performed By: #### CHINMAY CHAVESRO #### [facility] [address] [place] [address] Dr. Alfredo RAYMUNDO A micrscopic examina tion will be performed if indicated. Normal [facility] Comment on above: Performed By: #### CHINMAY CHAVESRO #### [facility] [address] [place] [address] Dr. Alfredo Lizama Glucose Ql (U) Negative Normal NEGATIVE [facility] Comment on above: Performed By: #### CHINMAY CHAVESRO #### [facility] [address] [place] [address] Dr. Alfredo Lizama Hemoglobin Ql (U) MODERATE Abnormal NEGATIVE [facility] Comment on above: Performed By: #### CHINMAY CHAVESRO #### [facility] [address] [place] [address] Dr. Alfredo Lizama Ketones Ql (U) TRACE Abnormal NEGATIVE [facility] Comment on above: Performed By: #### CHINMAY CHAVESRO #### [facility] [address] [place] [address] Dr. Alfredo Lizama LEUKOCYTES SMALL Abnormal NEGATIVE [facility] Comment on above: Performed By: #### Jacque ESTRADA UMICRO #### [facility] [address] [place] [address] Dr. Alfredo Lizama Nitrite Ql (U) Negative Normal NEGATIVE [facility] Comment on above: Performed By: #### E RUR, UMICRO #### [facility] [address] [place] [address] Dr. Alfredo Lizama pH (U) 8.0 [pH] Normal 5-9 [facility] Comment on above: Performed By: #### E SEAN, UMICRO #### [facility] [address] [place] [address] Dr. Alfredo Lizama Protein (U) [Mass/Vol] 100 mg/dL Abnormal NEGATIVE/ TRACE [facility] Comment on above: Performed By: #### E RUR, UMICRO #### [facility] [address] [place] [address] Dr. Alfredo Lizama SPEC GRAVITY 1.015 Normal 1.005-<=1.0 25 [facility] Comment on above: Performed By: #### E RUEsther, UMICRO #### [facility] [address] [place] [address] Dr. Alfredo Lizama UR MICRO IND INDICATED Normal [facility] Comment on above: Performed By: #### E RUEsther, UMICRO #### [facility] [address] [place] [address] Dr. Alfredo Lizama Urobilinogen Qn (U) 1.0 {Tesha'U}/dL Normal 0.2 - 1. 0 [facility] Comment on above: Performed By: #### E RUEsther, UMICRO #### [facility] [address] [place] [address] Dr. Alfredo Lizama PROF CHEM 8 (BAS METB)on Anion gap [Moles/Vol] 8.4 mmol/L Normal [facility] Comment on above: Performed By: #### U MICRO, ERUR #### [facility] [address] [place] [address] Dr. Alfredo Lizama Calcium [Mass/Vol] 8.7 mg/dL Normal 8.5-10.1 [facility] Comment on above: Performed By: #### U MICRO, ERUR #### [facility] [address] [place] [address] Dr. Alfredo Lizama Chloride [Moles/Vol] 107 mmol/L Normal 98-107 [facility] Comment on above: Performed By: #### U MICRO, ERUR #### [facility] [address] [place] [address] Dr. Alfredo Lizama CO2 [Moles/Vol] 28.3 mmol/L Normal 21.0-32.0 [facility] Comment on above: Performed By: #### U MICRO, ERUR #### [facility] [address] [address] [address] Alfredo Lizama Creatinine [Mass/Vol] 0.70 mg/dL Normal 0.55-1.02 [facility] Comment on above: Performed By: #### U MICRO, ERUR #### [facility] [address] [place] [address] Dr. Alfredo Lizama EGFR-AF SAMOAN >60 Normal >=60 [facility] Comment on above: Performed By: #### U MICRO, ERUR #### [facility] [address] [place] [address] Dr. Alfredo Lizama EGFR-NON AF SAMOAN >60 Normal >=60 [facility] Comment on above: Performed By: #### U MICRO, ERUR #### [facility] [address] [place] [address] Dr. Alfredo Lizama Glucose [Mass/Vol] 97 mg/dL Normal 74-106 [facility] Comment on above: Performed By: #### U MICRO, ERUR #### [facility] [address] [place] [address] Dr. Alfredo Lizama Potassium [Moles/Vol] 3.7 mmol/L Normal 3.5-5.1 [facility] Comment on above: Performed By: #### U MICRO, ERUR #### [facility] [address] [place] [address] Dr. Alfredo Lizama Sodium [Moles/Vol] 140 mmol/L Normal 136-145 [facility] Comment on above: Performed By: #### U MICRO, ERUR #### [facility] [address] [place] [address] Dr. Alfredo Lizama Urea nitrogen [Mass/Vol] 7.0 mg/dL Normal 7.0-18.0 [facility] Comment on above: Performed By: #### U MICRO, ERUR #### [facility] [address] [place] [address] Dr. Alfredo Lizama Urea nitrogen/Creatinine [Mass ratio] 10.0 mg/mg Normal [facility] Comment on above: Performed By: #### U MICRO, ERUR #### [facility] [address] [place] [address] Dr. Alfredo Lizama URINE MICROSCOPIC ONLYon AMORPHOUS CRYSTALS FEW Normal [facility] Comment on above: Performed By: #### E RUR, UMICRO #### [facility] [address] [place] [address] Dr. Alfredo Lizama BACTERIA LARGE Abnormal NONE SEEN [facility] Comment on above: Performed By: #### E RUR, UMICRO #### [facility] [address] [place] [address] Dr. Alfredo Lizama Bacteria identified Cx Nom (U) INDICATED Normal [facility] Comment on above: Performed By: #### E RUR, UMICRO #### [facility] [address] [place] [address] Dr. Alfredo Lizama CAST NONE SEEN Normal NONE SEEN [facility] Comment on above: Performed By: #### E RUR, UMICRO #### [facility] [address] [place] [address] Dr. Alfredo Lizama Crystals LM Nom (Urine sed) SEEN Abnormal NONE SEEN [facility] Comment on above: Performed By: #### E RUR, UMICRO #### [facility] [address] [place] [address] Dr. Alfredo Lizama Epithelial cells LM Ql (Urine sed) RARE Normal NONE SEEN /RARE [facility] Comment on above: Performed By: #### E RUR, UMICRO #### [facility] [address] [place] [address] Dr. Alfredo Lizama MUCOUS NONE SEEN Normal NONE SEEN [facility] Comment on above: Performed By: #### E RUR, UMICRO #### [facility] [address] [address] [address] Alfredo Lizama RBC 2-5 Abnormal 0-2 [facility] Comment on above: Performed By: #### E LINDA ESTRADA #### [facility] [address] [address] [address] Alfredo Lizama TRIPLE PHOS CRYSTALS FEW Normal [facility] Comment on above: Performed By: #### E LINDA ESTRADA #### [facility] [id number] Alfredo Lizama WBC 75-100 Abnormal NONE SEEN [facility] Comment on above: Performed By: #### E LINDA ESTRADA #### [facility] [address] [address] [address] Alfredo Lizama Patient Letter FTon 2022 Patient Letter [facility] (Inserted Image. Shelly ble to display) January 10, 2023 MORALES LEE [address] [place] [address] MORALES LEE 1975 Dear Morales, I am corresponding with you by certified mail because of repeat non compliance. You missed your catheter exchange appointment on 12/31/22. It is recommended your Alvares catheter be exchanged every 4 weeks to prevent encrustation and infection. Also you were referred to Dr Zhang at [facility] for further evaluation regarding your condition [...] [facility] [address], [place] [address] [facility] CULTURE URINEon 12-25-2022 CULTURE URINE Isolate [...] F Trimethoprim/Sulfamethoxazo le <=20 S F Normal [facility] Comment on above: Performed By: #### U MICRO, ERUR #### [facility] [address] [place] [address] Dr. Alfredo Lizama AMYLASEon 11-09-2022 Amylase [Catalytic activity/Vol] 14 U/L Critically low 25-115 [facility] Comment on above: Performed By: #### U MICRO, ERUR #### [facility] [address] [place] [address] Dr. Alfredo Lizama CBC AUTO DIFFon 11-09-2022 BASO # 0.1 103/ul Normal 0.0-0.1 [facility] Comment on above: Performed By: #### U MICRO, ERUR #### [facility] [address] [place] [address] Dr. Alfredo Lizama Basophils/100 WBC (Bld) 0.8 % Normal 0.2-2.0 [facility] Comment on above: Performed By: #### U MICRO, ERUR #### [facility] [address] [place] [address] Dr. Alfredo Lizama EO # 0.2 103/ul Normal 0.0-0.7 [facility] Comment on above: Performed By: #### U MICRO, ERUR #### [facility] [address] [place] [address] Dr. Alfredo Lizama Eosinophils/100 WBC (Bld) 2.5 % Normal 0.9-7.0 [facility] Comment on above: Performed By: #### U MICRO, ERUR #### [facility] [address] [place] [address] Dr. Alfredo Lizama Erythrocyte distribution width (RBC) [Ratio] 12.7 % Normal 11.0-15.0 [facility] Comment on above: Performed By: #### U MICRO, ERUR #### [facility] [address] [place] [address] Dr. Alfredo Lizama Hematocrit (Bld) [Volume fraction] 46.3 % Normal 36.0-48.0 [facility] Comment on above: Performed By: #### U MICRO, ERUR #### [facility] [address] [place] [address] Dr. Alfredo Lizama Hemoglobin (Bld) [Mass/Vol] 15.9 g/dL Normal 12.0-16.0 [facility] Comment on above: Performed By: #### U MICRO, ERUR #### [facility] [address] [place] [address] Dr. Alfredo Lizama IG # 0.02 10e3/ul Normal 0.00-0.03 [facility] Comment on above: Performed By: #### U MICRO, ERUR #### [facility] [address] [place] [address] Dr. Alfredo Lizama IG % 0.2 % Normal 0.0-0.5 [facility] Comment on above: Performed By: #### U MICRO, ERUR #### [facility] [address] [place] [address] Dr. Alfredo Lizama LYMPH # 2.6 103/ul Normal 1.2-3.8 [facility] Comment on above: Performed By: #### U MICRO, ERUR #### [facility] [address] [place] [address] Dr. Alfredo Lizama Lymphocytes/100 WBC (Bld) 31.3 % Normal 20.5-60.0 [facility] Comment on above: Performed By: #### U MICRO, ERUR #### [facility] [address] [place] [address] Dr. Alfredo Lizama MANUAL DIFF REQ NO Normal [facility] Comment on above: Performed By: #### U MICRO, ERUR #### [facility] [address] [place] [address] Dr. Alfredo Lizama MCH (RBC) [Entitic mass] 29.3 pg Normal 26.7-34.0 [facility] Comment on above: Performed By: #### U MICRO, ERUR #### [facility] [address] [place] [address] Dr. Alfredo Lizama MCHC (RBC) [Mass/Vol] 34.3 g/dL Normal 29.9-35.2 [facility] Comment on above: Performed By: #### U MICRO, ERUR #### [facility] [address] [place] [address] Dr. Alfredo Lizama MCV (RBC) [Entitic vol] 85.4 fL Normal 81.0-99.0 [facility] Comment on above: Performed By: #### U MICRO, ERUR #### [facility] [address] [place] [address] Dr. Alfredo Lizama MONO # 0.6 103/ul Normal 0.3-0.8 [facility] Comment on above: Performed By: #### U MICRO, ERUR #### [facility] [address] [place] [address] Dr. Alfredo Lizama Monocytes/100 WBC (Bld) 6.6 % Normal 1.7-12.0 [facility] Comment on above: Performed By: #### U MICRO, ERUR #### [facility] [address] [place] [address] Dr. Alfredo Lizama NEUT # 4.9 103/ul Normal 1.4-6.5 [facility] Comment on above: Performed By: #### U MICRO, ERUR #### [facility] [address] [place] [address] Dr. Alfredo Lizama Neutrophils/100 WBC (Bld) 58.6 % Normal 43.0-75.0 [facility] Comment on above: Performed By: #### U MICRO, ERUR #### [facility] [address] [place] [address] Dr. Alfredo Lizama Platelet mean volume (Bld) [Entitic vol] 9.5 fL Normal 9.5-13.5 [facility] Comment on above: Performed By: #### U MICRO, ERUR #### [facility] [address] [place] [address] Dr. Alfredo Lizama PLT 273 103/ul Normal 150-450 [facility] Comment on above: Performed By: #### U MICRO, ERUR #### [facility] [address] [place] [address] Dr. Alfredo Lizama RBC 5.42 106/ul Critically high 4.20-5.40 [facility] Comment on above: Performed By: #### U MICRO, ERUR #### [facility] [address] [place] [address] Dr. Alfredo Lizama WBC 8.4 103/ul Normal 4.0-11.0 [facility] Comment on above: Performed By: #### U MICRO, ERUR #### [facility] [address] [place] [address] Dr. Alfredo Lizama CULTURE URINEon 11-09-2022 CULTURE URINE Culture Observations : MODERATE GROWTH OF MIXED GENITAL ROSANNA. NO POTENTIAL PATHOGENS SEEN. Normal [facility] Comment on above: Performed By: #### U MICRO, ERUR #### [facility] [address] [place] [address] Dr. Alfredo Lizama ER URINE PROFILEon 3 Bilirubin Ql (U) Negative Normal NEGATIVE [facility] Comment on above: Performed By: #### U MICRO, ERUR #### [facility] [address] [place] [address] Dr. Alfredo Lizama Clarity (U) CLEAR Normal CLEAR [facility] Comment on above: Performed By: #### U MICRO, ERUR #### [facility] [address] [place] [address] Dr. Alfredo Lizama Color (U) LT. YELLOW Normal YELLOW [facility] Comment on above: Performed By: #### U MICRO, ERUR #### [facility] [address] [place] [address] Dr. Alfredo Lizama ERUAHD A micrscopic examina tion will be performed if indicated. Normal [facility] Comment on above: Performed By: #### U MICRO, ERUR #### [facility] [address] [address] [address] Alfredo Lizama Glucose Ql (U) Negative Normal NEGATIVE [facility] Comment on above: Performed By: #### U MICRO, ERUR #### [facility] [address] [address] [address] Alfredo Lizama Hemoglobin Ql (U) MODERATE Abnormal NEGATIVE [facility] Comment on above: Performed By: #### U MICRO, ERUR #### [facility] [address] [address] [address] Alfredo Lizama Ketones Ql (U) Negative Normal NEGATIVE [facility] Comment on above: Performed By: #### U MICRO, ERUR #### [facility] [address] [place] [address] Dr. Alfredo Lizama LEUKOCYTES LARGE Abnormal NEGATIVE [facility] Comment on above: Performed By: #### U MICRO, ERUR #### [facility] [address] [place] [address] Dr. Alfredo Lizama Nitrite Ql (U) Negative Normal NEGATIVE [facility] Comment on above: Performed By: #### U MICRO, ERUR #### [facility] [address] [place] [address] Dr. Alfredo Lizama pH (U) 7.0 [pH] Normal 5-9 [facility] Comment on above: Performed By: #### U MICRO, ERUR #### [facility] [address] [place] [address] Dr. Alfredo Lizama SPEC GRAVITY 1.015 Normal 1.005-<=1.0 25 [facility] Comment on above: Performed By: #### U MICRO, ERUR #### [facility] [address] [place] [address] Dr. Alfredo Lizama UA PROTEIN Negative Normal NEGATIVE/ TRACE [facility] Comment on above: Performed By: #### U MICRO, ERUR #### [facility] [address] [place] [address] Dr. Alfredo Lizama UR MICRO IND INDICATED Normal [facility] Comment on above: Performed By: #### U MICRO, ERUR #### [facility] [address] [place] [address] Dr. Alfredo Lizama Urobilinogen Qn (U) 0.2 {Tesha'U}/dL Normal 0.2 - 1. 0 [facility] Comment on above: Performed By: #### U MICRO, ERUR #### [facility] [address] [address] [address] Alfredo Lizama LIPASEon 11-09-2022 Lipase [Catalytic activity/Vol] 34.0 U/L Critically low 73.0-393.0 [facility] Comment on above: Performed By: #### U MICRO, ERUR #### [facility] [address] [address] [address] Alfredo Lizama PROF 14(COMP METB)on 023 Albumin [Mass/Vol] 4.0 g/dL Normal 3.4-5.0 [facility] Comment on above: Performed By: #### U MICRO, ERUR #### [facility] [address] [place] [address] Dr. Alfredo Lizama Albumin/Globulin [Mass ratio] 1.0 {ratio} Normal [facility] Comment on above: Performed By: #### U MICRO, ERUR #### [facility] [address] [place] [address] Dr. Alfredo Lizama ALP [Catalytic activity/Vol] 206 U/L Critically high 46-116 [facility] Comment on above: Performed By: #### U MICRO, ERUR #### [facility] [address] [address] [address] Alfredo Lizama ALT [Catalytic activity/Vol] 53 U/L Normal 14-59 [facility] Comment on above: Performed By: #### U MICRO, ERUR #### [facility] [address] [address] [address] Alfredo Lizama Anion gap [Moles/Vol] 14.5 mmol/L Normal [facility] Comment on above: Performed By: #### U MICRO, ERUR #### [facility] [address] [place] [address] Dr. Alfredo Lizama AST [Catalytic activity/Vol] 55 U/L Critically high 15-37 [facility] Comment on above: Performed By: #### U MICRO, ERUR #### [facility] [address] [address] [address] Alfredo Lizama Bilirubin [Mass/Vol] 0.7 mg/dL Normal 0.2-1.0 [facility] Comment on above: Performed By: #### U MICRO, ERUR #### [facility] [address] [address] [address] Alfredo Lizama Calcium [Mass/Vol] 9.0 mg/dL Normal 8.5-10.1 [facility] Comment on above: Performed By: #### U MICRO, ERUR #### [facility] [address] [address] [address] Alfredo Lizama Chloride [Moles/Vol] 100 mmol/L Normal 98-107 [facility] Comment on above: Performed By: #### U MICRO, ERUR #### [facility] [address] [address] [address] Alfredo Lizama CO2 [Moles/Vol] 28.3 mmol/L Normal 21.0-32.0 [facility] Comment on above: Performed By: #### U MICRO, ERUR #### [facility] [address] [address] [address] Alfredo Lizama Creatinine [Mass/Vol] 0.65 mg/dL Normal 0.55-1.02 [facility] Comment on above: Performed By: #### U MICRO, ERUR #### [facility] [address] [address] [address] Alfredo Lizama EGFR-AF SAMOAN >60 Normal >=60 [facility] Comment on above: Performed By: #### U MICRO, ERUR #### [facility] [address] [address] [address] Alfredo Lizama EGFR-NON AF SAMOAN >60 Normal >=60 [facility] Comment on above: Performed By: #### U MICRO, ERUR #### [facility] [address] [place] [address] Dr. Alfredo Lizama Globulin (S) [Mass/Vol] 3.9 g/dL Normal [facility] Comment on above: Performed By: #### U MICRO, ERUR #### [facility] [address] [address] [address] Alfredo Lizama Glucose [Mass/Vol] 134 mg/dL Critically high 74-106 [facility] Comment on above: Performed By: #### U MICRO, ERUR #### [facility] [address] [address] [address] Alfredo Lizama Potassium [Moles/Vol] 3.8 mmol/L Normal 3.5-5.1 [facility] Comment on above: Performed By: #### U MICRO, ERUR #### [facility] [address] [address] [address] Alfredo Lizama Protein [Mass/Vol] 7.9 g/dL Normal 6.4-8.2 [facility] Comment on above: Performed By: #### U MICRO, ERUR #### [facility] [address] [address] [address] Alfredo Lizama Sodium [Moles/Vol] 139 mmol/L Normal 136-145 [facility] Comment on above: Performed By: #### U MICRO, ERUR #### [facility] [address] [address] [address] Alfredo Lizama Urea nitrogen [Mass/Vol] 7.0 mg/dL Normal 7.0-18.0 [facility] Comment on above: Performed By: #### U MICRO, ERUR #### [facility] [address] [place] [address] Dr. Alfredo Lizama Urea nitrogen/Creatinine [Mass ratio] 10.7 mg/mg Normal [facility] Comment on above: Performed By: #### U MICRO, ERUR #### [facility] [address] [place] [address] Dr. Alfredo Lizama URINE MICROSCOPIC ONLYon BACTERIA TRACE Abnormal NONE SEEN [facility] Comment on above: Performed By: #### U MICRO, ERUR #### [facility] [address] [place] [address] Dr. Alfredo Lizama Bacteria identified Cx Nom (U) INDICATED Normal [facility] Comment on above: Performed By: #### U MICRO, ERUR #### [facility] [address] [address] [address] Alfredo Lizama CAST NONE SEEN Normal NONE SEEN [facility] Comment on above: Performed By: #### U MICRO, ERUR #### [facility] [address] [place] [address] Dr. Alfredo Lizama Crystals LM Nom (Urine sed) NONE SEEN Normal NONE SEEN [facility] Comment on above: Performed By: #### U MICRO, ERUR #### [facility] [address] [place] [address] Dr. Alfredo Lizama Epithelial cells LM Ql (Urine sed) FEW Abnormal NONE SEEN /RARE [facility] Comment on above: Performed By: #### U MICRO, ERUR #### [facility] [address] [place] [address] Dr. Alfredo Lizama MUCOUS NONE SEEN Normal NONE SEEN [facility] Comment on above: Performed By: #### U MICRO, ERUR #### [facility] [address] [place] [address] Dr. Alfredo Lizama RBC 20-50 Abnormal 0-2 [facility] Comment on above: Performed By: #### U MICRO, ERUR #### [facility] [address] [place] [address] Dr. Alfredo Lizama WBC 20-50 Abnormal NONE SEEN [facility] Comment on above: Performed By: #### U MICRO, ERUR #### [facility] [address] [place] [address] Dr. Alfredo Lizama XR ABD FLAT_UPon 11-09-2022 [...] ENRIQUE LOWE Date: 2022-11-09 11:06 Normal [facility] CULTURE URINEon 10-18-2022 CULTURE URINE Isolate [...] Trimethoprim/Sulfamethoxazo le <=10 S F Normal [facility] Comment on above: Performed By: #### U MICRO, ERUR #### [facility] [address] [place] [address] Dr. Alfredo Lizama ER URINE PROFILEon 3 Bilirubin Ql (U) Negative Normal NEGATIVE [facility] Comment on above: Performed By: #### CHINMAY CHAVESRO #### [facility] [address] [place] [address] Dr. Alfredo Lizama Clarity (U) CLEAR Normal CLEAR [facility] Comment on above: Performed By: #### FER CHAVESICRO #### [facility] [address] [place] [address] Dr. Alfredo Lizama Color (U) YELLOW Normal YELLOW [facility] Comment on above: Performed By: #### E CHINMAY ESTRADARO #### [facility] [address] [place] [address] Dr. Alfredo RAYMUNDO A micrscopic examina tion will be performed if indicated. Normal [facility] Comment on above: Performed By: #### FER CHAVESICRO #### [facility] [address] [place] [address] Dr. Alfredo Lizama Glucose Ql (U) Negative Normal NEGATIVE [facility] Comment on above: Performed By: #### FER CHAVESICRO #### [facility] [address] [place] [address] Dr. Alfredo Lizama Hemoglobin Ql (U) LARGE Abnormal NEGATIVE [facility] Comment on above: Performed By: #### Jacque ESTRADA UMICRO #### [facility] [address] [place] [address] Dr. Alfredo Lizama Ketones Ql (U) Negative Normal NEGATIVE [facility] Comment on above: Performed By: #### Jacque ESTRADA UMICRO #### [facility] [address] [place] [address] Dr. Alfredo Lizama LEUKOCYTES LARGE Abnormal NEGATIVE [facility] Comment on above: Performed By: #### Jacque ESTRADA UMICRO #### [facility] [address] [place] [address] Dr. Alfredo Lizama Nitrite Ql (U) Positive Abnormal NEGATIVE [facility] Comment on above: Performed By: #### Jacque ESTRADA UMICRO #### [facility] [address] [place] [address] Dr. Alfredo Lizama pH (U) 6.5 [pH] Normal 5-9 [facility] Comment on above: Performed By: #### Jacque ESTRADA UMICRO #### [facility] [address] [place] [address] Dr. Alfredo Lizama Protein (U) [Mass/Vol] 100 mg/dL Abnormal NEGATIVE/ TRACE [facility] Comment on above: Performed By: #### Jacque ESTRADA UMICRO #### [facility] [address] [place] [address] Dr. Alfredo Lizama SPEC GRAVITY 1.010 Normal 1.005-<=1.0 25 [facility] Comment on above: Performed By: #### E SEAN UMICRO #### [facility] [address] [place] [address] Dr. Alfredo Lizama UR MICRO IND INDICATED Normal [facility] Comment on above: Performed By: #### E RUEsther UMICRO #### [facility] [address] [place] [address] Dr. Alfredo Lizama Urobilinogen Qn (U) 1.0 {Tesha'U}/dL Normal 0.2 - 1. 0 [facility] Comment on above: Performed By: #### E SEAN UMICRO #### [facility] [address] [place] [address] Dr. Alfredo Lizama URINE MICROSCOPIC ONLYon BACTERIA MODERATE Abnormal NONE SEEN [facility] Comment on above: Performed By: #### U MICRO, ERUR #### [facility] [address] [place] [address] Dr. Alrfedo Lizama Bacteria identified Cx Nom (U) INDICATED Normal [facility] Comment on above: Performed By: #### U MICRO, ERUR #### [facility] [address] [place] [address] Dr. Alfredo Lizama CA OX CRYSTALS RARE Normal [facility] Comment on above: Performed By: #### U MICRO, ERUR #### [facility] [address] [place] [address] Dr. Alfredo Lizama CAST NONE SEEN Normal NONE SEEN [facility] Comment on above: Performed By: #### U MICRO, ERUR #### [facility] [address] [place] [address] Dr. Alfredo Lizama Crystals LM Nom (Urine sed) SEEN Abnormal NONE SEEN [facility] Comment on above: Performed By: #### U MICRO, ERUR #### [facility] [address] [place] [address] Dr. Alfredo Lizama Epithelial cells LM Ql (Urine sed) MODERATE Abnormal NONE SEEN /RARE [facility] Comment on above: Performed By: #### U MICRO, ERUR #### [facility] [address] [place] [address] Dr. Alfredo Lizama MUCOUS TRACE Abnormal NONE SEEN [facility] Comment on above: Performed By: #### U MICRO, ERUR #### [facility] [address] [place] [address] Dr. Alfredo Lizama RBC 20-50 Abnormal 0-2 [facility] Comment on above: Performed By: #### U MICRO, ERUR #### [facility] [address] [place] [address] Dr. Alfredo Lizama WBC 50-75 Abnormal NONE SEEN [facility] Comment on above: Performed By: #### U MICRO, ERUR #### [facility] [address] [place] [address] Dr. Alfredo Lizama Covid-19 PCR ([facility])on 08-06 SARS-CoV-2 (COVID-19) RNA ADRIÁN+probe Ql (Unsp spec) Not detected Normal NOT DETECTED [facility] Comment on above: Result Comment: When [...] for this test is supported by the Over[employer] Maintainer of Health and Human Service's declaration that [...] #### U MICRO, ERUR #### [facility] [address] [place] [address] Dr. Alfredo Lizama CBC AUTO DIFFon 08-24-2022 BASO # 0.1 103/ul Normal 0.0-0.1 [facility] Comment on above: Performed By: #### C BC #### [facility] [address] [place] [address] Dr. Alfredo iLzama Basophils/100 WBC (Bld) 0.8 % Normal 0.2-2.0 [facility] Comment on above: Performed By: #### C BC #### [facility] [address] [place] [address] Dr. Alfredo Lizama EO # 0.3 103/ul Normal 0.0-0.7 [facility] Comment on above: Performed By: #### C BC #### [facility] [address] [place] [address] Dr. Alfredo Lizama Eosinophils/100 WBC (Bld) 3.1 % Normal 0.9-7.0 [facility] Comment on above: Performed By: #### C BC #### [facility] [address] [place] [address] Dr. Alfredo Lizama Erythrocyte distribution width (RBC) [Ratio] 13.4 % Normal 11.0-15.0 [facility] Comment on above: Performed By: #### C BC #### [facility] [address] [place] [address] Dr. Alfredo Lizama Hematocrit (Bld) [Volume fraction] 47.2 % Normal 36.0-48.0 [facility] Comment on above: Performed By: #### C BC #### [facility] [address] [place] [address] Dr. Alfredo Lizama Hemoglobin (Bld) [Mass/Vol] 15.6 g/dL Normal 12.0-16.0 [facility] Comment on above: Performed By: #### C BC #### [facility] [address] [place] [address] Dr. Alfredo Lizama IG # 0.02 10e3/ul Normal 0.00-0.03 [facility] Comment on above: Performed By: #### C BC #### [facility] [address] [place] [address] Dr. Alfredo Lizama IG % 0.2 % Normal 0.0-0.5 [facility] Comment on above: Performed By: #### C BC #### [facility] [address] [place] [address] Dr. Alfredo Lizama LYMPH # 4.4 103/ul Critically high 1.2-3.8 [facility] Comment on above: Performed By: #### C BC #### [facility] [address] [place] [address] Dr. Alfredo Lizama Lymphocytes/100 WBC (Bld) 42.3 % Normal 20.5-60.0 [facility] Comment on above: Performed By: #### C BC #### [facility] [address] [place] [address] Dr. Alfredo Lizama MANUAL DIFF REQ NO Normal [facility] Comment on above: Performed By: #### C BC #### [facility] [address] [place] [address] Dr. Alfredo Lizama MCH (RBC) [Entitic mass] 28.8 pg Normal 26.7-34.0 [facility] Comment on above: Performed By: #### C BC #### [facility] [address] [place] [address] Dr. Alfredo Lizama MCHC (RBC) [Mass/Vol] 33.1 g/dL Normal 29.9-35.2 [facility] Comment on above: Performed By: #### C BC #### [facility] [address] [place] [address] Dr. Alfredo Lizama MCV (RBC) [Entitic vol] 87.2 fL Normal 81.0-99.0 [facility] Comment on above: Performed By: #### C BC #### [facility] [address] [place] [address] Dr. Alfredo Lizama MONO # 0.6 103/ul Normal 0.3-0.8 [facility] Comment on above: Performed By: #### C BC #### [facility] [address] [place] [address] Dr. Alfredo Lizama Monocytes/100 WBC (Bld) 5.3 % Normal 1.7-12.0 [facility] Comment on above: Performed By: #### C BC #### [facility] [address] [address] [address] Alfredo Lizama NEUT # 5.0 103/ul Normal 1.4-6.5 [facility] Comment on above: Performed By: #### C BC #### [facility] [address] [place] [address] Dr. Alfredo Lizama Neutrophils/100 WBC (Bld) 48.3 % Normal 43.0-75.0 [facility] Comment on above: Performed By: #### C BC #### [facility] [address] [place] [address] Dr. Alfredo Lizama Platelet mean volume (Bld) [Entitic vol] 9.9 fL Normal 9.5-13.5 [facility] Comment on above: Performed By: #### C BC #### [facility] [address] [place] [address] Dr. Alfredo Lizama PLT 298 103/ul Normal 150-450 [facility] Comment on above: Performed By: #### C BC #### [facility] [address] [place] [address] Dr. Alfredo Lizama RBC 5.41 106/ul Critically high 4.20-5.40 [facility] Comment on above: Performed By: #### C BC #### [facility] [address] [place] [address] Dr. Alfredo Lizama WBC 10.3 103/ul Normal 4.0-11.0 [facility] Comment on above: Performed By: #### C BC #### [facility] [address] [place] [address] Dr. Alfredo Lizama PROF CHEM 8 (BAS METB)on Anion gap [Moles/Vol] 14.3 mmol/L Normal [facility] Comment on above: Performed By: #### U MICRO, ERUR #### [facility] [address] [place] [address] Dr. Alfredo Lizama Calcium [Mass/Vol] 9.1 mg/dL Normal 8.5-10.1 [facility] Comment on above: Performed By: #### U MICRO, ERUR #### [facility] [address] [address] [address] Alfredo Lizama Chloride [Moles/Vol] 99 mmol/L Normal 98-107 [facility] Comment on above: Performed By: #### U MICRO, ERUR #### [facility] [address] [address] [address] Alfredo Lizama CO2 [Moles/Vol] 29.0 mmol/L Normal 21.0-32.0 [facility] Comment on above: Performed By: #### U MICRO, ERUR #### [facility] [address] [address] [address] Alfredo Lizama Creatinine [Mass/Vol] 0.70 mg/dL Normal 0.55-1.02 [facility] Comment on above: Performed By: #### U MICRO, ERUR #### [facility] [address] [place] [address] Dr. Alfredo Lizama EGFR-AF SAMOAN >60 Normal >=60 [facility] Comment on above: Performed By: #### U MICRO, ERUR #### [facility] [address] [place] [address] Dr. Alfredo Lizama EGFR-NON AF SAMOAN >60 Normal >=60 [facility] Comment on above: Performed By: #### U MICRO, ERUR #### [facility] [address] [place] [address] Dr. Alfredo Lizama Glucose [Mass/Vol] 121 mg/dL Critically high 74-106 T [facility] Comment on above: Performed By: #### U MICRO, ERUR #### [facility] [address] [place] [address] Dr. Alfredo Lizama Potassium [Moles/Vol] 3.3 mmol/L Critically low 3.5-5.1 [facility] Comment on above: Performed By: #### U MICRO, ERUR #### [facility] [address] [place] [address] Dr. Alfredo Lizama Sodium [Moles/Vol] 139 mmol/L Normal 136-145 [facility] Comment on above: Performed By: #### U MICRO, ERUR #### [facility] [address] [place] [address] Dr. Alfredo Lizama Urea nitrogen [Mass/Vol] 5.0 mg/dL Critically low 7.0-18.0 [facility] Comment on above: Performed By: #### U MICRO, ERUR #### [facility] [address] [place] [address] Dr. Alfredo Lizama Urea nitrogen/Creatinine [Mass ratio] 7.1 mg/mg Normal [facility] Comment on above: Performed By: #### U MICRO, ERUR #### [facility] [address] [place] [address] Dr. Alfredo Lizama PROTIMEon 08-24-2022 INR Coag (PPP) [Relative time] 0.99 {INR} Normal [facility] Comment on above: Performed By: #### P T, PTT #### [facility] [address] [place] [address] Dr. Alfredo Lizama INR GUIDELINES SEE BELOW Normal [facility] Comment on above: Result Comment: MARY JO RED INR: 2.0 - 3.0 CONDITIONS NOT LISTED BELOW 2.5 - 3.5 FOR PROSTHETIC HEART VALVE REPLACEMENT 2.5 - 3.5 RECURRENT THROMBOSIS Performed By: #### P T, PTT #### [facility] [address] [place] [address] Dr. Alfredo Lizama PT Coag (PPP) [Time] 10.7 s Normal 9.0-11.6 [facility] Comment on above: Performed By: #### P T, PTT #### [facility] [address] [place] [address] Dr. Alfredo Lizama PTTon 08-24-2022 aPTT Coag (Bld) [Time] 31.7 s Normal 22.3-36.2 [facility] Comment on above: Performed By: #### P T, PTT #### [facility] [address] [place] [address] Dr. Alfredo Lizama BN SACRUM/COCCYX, MIN 2 [...] 09/20/2019. Thoracolumbar spine radiographs 09/08/2021. ACCESSION NUMBER(S): [id number]; [id number]; [id number] ORDERING CLINICIAN: CANDICE PEREZ FINDINGS: Three views [...] stated. Electronically signed by: GOMEZ JAMA MD [facility] BN SPINE, LUMBOSACRAL; 2 OR 3 VIEWSon [...] 09/20/2019. Thoracolumbar spine radiographs 09/08/2021. ACCESSION NUMBER(S): [id number]; [id number]; [id number] ORDERING CLINICIAN: CANDICE PEREZ FINDINGS: Three views [...] MD Normal [facility] BN SPINE, THORACIC, 3 VIEWSo n [...] 09/20/2019. Thoracolumbar spine radiographs 09/08/2021. ACCESSION NUMBER(S): [id number]; [id number]; [id number] ORDERING CLINICIAN: CANDICE PEREZ FINDINGS: Three views [...] (cells/L). Performed By: #### R ENAL #### [facility] [address] [place] [address] Basophils (Bld) [#/Vol] 0.09 10*3/uL Normal 0.00 - 0.10 [facility] Comment on above: Performed By: #### R ENAL #### [facility] [address] [place] [address] Basophils/100 WBC (Bld) 1.0 % Normal 0.0 - 2.0 [facility] Comment on above: Performed By: #### R ENAL #### [facility] [address] [place] [address] Eosinophils (Bld) [#/Vol] 0.24 10*3/uL Normal 0.00 - 0.70 [facility] Comment on above: Performed By: #### R ENAL #### [facility] [address] [place] [address] Eosinophils/100 WBC (Bld) 2.6 % Normal 0.0 - 6.0 [facility] Comment on above: Performed By: #### R ENAL #### [facility] [address] [place] [address] Erythrocyte distribution width (RBC) [Ratio] 12.9 % Normal 11.5 - 14.5 [facility] Comment on above: Performed By: #### R ENAL #### [facility] [address] [place] [address] Hematocrit (Bld) [Volume fraction] 48.4 % High 36.0 - 46.0 [facility] Comment on above: Performed By: #### R ENAL #### [facility] [address] [place] [address] Hemoglobin (Bld) [Mass/Vol] 17.1 g/dL High 12.0 - 16.0 [facility] Comment on above: Performed By: #### R ENAL #### [facility] [address] [place] [address] Lymphocytes (Bld) [#/Vol] 2.93 10*3/uL Normal 1.20 - 4.80 [facility] Comment on above: Performed By: #### R ENAL #### [facility] [address] [place] [address] Lymphocytes/100 WBC (Bld) 31.9 % Normal 13.0 - 44.0 [facility] Comment on above: Performed By: #### R ENAL #### [facility] [address] [place] [address] MCHC (RBC) [Mass/Vol] 35.3 g/dL Normal 32.0 - 36.0 [facility] Comment on above: Performed By: #### R ENAL #### [facility] [address] [place] [address] MCV (RBC) [Entitic vol] 85 fL Normal 80 - 100 [facility] Comment on above: Performed By: #### R ENAL #### [facility] [address] [place] [address] Monocytes (Bld) [#/Vol] 0.36 10*3/uL Normal 0.10 - 1.00 [facility] Comment on above: Performed By: #### R ENAL #### [facility] [address] [place] [address] Monocytes/100 WBC (Bld) 3.9 % Normal 2.0 - 10.0 [facility] Comment on above: Performed By: #### R ENAL #### [facility] [address] [place] [address] Neutrophils (Bld) [#/Vol] 5.54 10*3/uL Normal 1.20 - 7.70 [facility] Comment on above: Performed By: #### R ENAL #### [facility] [address] [place] [address] Neutrophils/100 WBC (Bld) 60.4 % Normal 40.0 - 80.0 [facility] Comment on above: Performed By: #### R ENAL #### [facility] [address] [place] [address] NUCLEATED RBC 0.0 /100 WBC Normal 0.0-0.0 [facility] Comment on above: Performed By: #### R ENAL #### [facility] [address] [place] [address] Platelets (Bld) [#/Vol] 365 10*3/uL Normal 150 - 450 [facility] Comment on above: Performed By: #### R ENAL #### [facility] [address] [place] [address] RBC 5.69 x10E12/L High 4.00 - 5.20 [facility] Comment on above: Performed By: #### R ENAL #### [facility] [address] [place] [address] WBC (Bld) [#/Vol] 9.2 10*3/uL Normal 4.4 - 11.3 [facility] Comment on above: Performed By: #### R ENAL #### [facility] [address] [place] [address] COMPREHENSIVE PANELon 2021 Albumin [Mass/Vol] 4.6 g/dL Normal 3.4 - 5.0 [facility] Comment on above: Performed By: #### R ENAL #### [facility] [address] [place] [address] ALP [Catalytic activity/Vol] 192 U/L High 33 - 110 [facility] Comment on above: Performed By: #### R ENAL #### [facility] [address] [place] [address] ALT [Catalytic activity/Vol] 33 U/L Normal 7 - 45 [facility] Comment on above: Result Comment: Melly ents treated with Sulfasalazine may generate falsely decreased results for ALT. Performed By: #### R ENAL #### [facility] [address] [place] [address] Anion gap [Moles/Vol] 16 mmol/L Normal 10 - 20 [facility] Comment on above: Performed By: #### R ENAL #### [facility] [address] [place] [address] AST [Catalytic activity/Vol] 51 U/L High 9 - 39 [facility] Comment on above: Performed By: #### R ENAL #### [facility] [address] [place] [address] Bilirubin [Mass/Vol] 0.5 mg/dL Normal 0.0 - 1.2 [facility] Comment on above: Performed By: #### R ENAL #### [facility] [address] [place] [address] Calcium [Mass/Vol] 10.3 mg/dL Normal 8.6 - 10.6 [facility] Comment on above: Performed By: #### R ENAL #### [facility] [address] [place] [address] Chloride [Moles/Vol] 101 mmol/L Normal 98 - 107 [facility] Comment on above: Performed By: #### R ENAL #### [facility] [address] [place] [address] Creatinine [Mass/Vol] 0.61 mg/dL Normal 0.50 - 1.05 [facility] Comment on above: Performed By: #### R ENAL #### [facility] [address] [place] [address] eGFR FEMALE >90 Normal >90 [facility] Comment on above: Result Comment: CALC ULATIONS OF ESTIMATED GFR ARE PERFORMED USING THE 2020 CKD-EPI STUDY REFIT EQUATION WITHOUT THE RACE VARIABLE FOR THE IDMS-TRACEABLE CREATININE METHODS. https://jasn.asnjournals.org/content//ASN.8489223 988 Performed By: #### R ENAL #### [facility] [address] [place] [address] Glucose [Mass/Vol] 100 mg/dL High 74 - 99 [facility] Comment on above: Performed By: #### R ENAL #### [facility] [address] [place] [address] HCO3 (Bld) [Moles/Vol] 27 mmol/L Normal 21 - 32 [facility] Comment on above: Performed By: #### R ENAL #### [facility] [address] [place] [address] Potassium [Moles/Vol] 3.8 mmol/L Normal 3.5 - 5.3 [facility] Comment on above: Performed By: #### R ENAL #### [facility] [address] [place] [address] Protein [Mass/Vol] 8.2 g/dL Normal 6.4 - 8.2 [facility] Comment on above: Performed By: #### R ENAL #### [facility] [address] [place] [address] Sodium [Moles/Vol] 140 mmol/L Normal 136 - 145 [facility] Comment on above: Performed By: #### R ENAL #### [place] [address] [place] [address] Urea nitrogen [Mass/Vol] 5 mg/dL Low 6 - 23 [facility] Comment on above: Performed By: #### R ENAL #### [facility] [address] [place] [address] Consult - Neuro-Surgeryon Consult - Neuro-Surgery Service: [...] 09/20/2021 MRI and 09/18/2021 CT ACCESSION NUMBER(S): [id number]; [id number] ORDERING CLINICIAN: CANDICE PEREZ TECHNIQUE: Axial CT [...] osseous spinal canal or neural foraminal stenosis. [id number] spinal canal and neural foraminal narrowing described [...] Electronically signed by: CELI MCNEIL DO Normal [facility] NR CT T-SPINE WO CONTRASTon 06-07-[address] T-SPINE WO CONTRAST Patient Name: MORALES LEE STUDY: CT T-SPINE WO CONTRAST; CT L-SPINE WO CONTRAST 06/06/2022 11:03 pm INDICATION: ok, Lie Flat: Yes COMPARISON: 09/20/2021 MRI and 09/18/2021 CT ACCESSION NUMBER(S): [id number]; [id number] ORDERING CLINICIAN: CANDICE PEREZ TECHNIQUE: Axial CT [...] osseous spinal canal or neural foraminal stenosis. [id number] spinal canal and neural foraminal narrowing described [...] 21-Jun-2022 06:18 by Yony Aguirre () Normal [facility] Provider Note - ED v3on 10-0 [...] obeys commands Best Verbal Response: (V5) oriented Lynco Score: 15 Mask applied: yes Patient has [...] Updated: 06-Jun-2022 19:07 by Meghan Chavez) Normal [facility] CULTURE URINEon 05-10-2022 CULTURE URINE Isolate [...] <=20 S F Normal [facility] Comment on above: Performed By: #### U MICRO, ERUR #### [facility] [address] [place] [address] Dr. Alfredo Lizama CBC AUTO DIFFon 05-07-2022 BASO # 0.1 103/ul Normal 0.0-0.1 [facility] Comment on above: Performed By: #### U MICRO, ERUR #### [facility] [address] [place] [address] Dr. Alfredo Lizama Basophils/100 WBC (Bld) 0.5 % Normal 0.2-2.0 [facility] Comment on above: Performed By: #### U MICRO, ERUR #### [facility] [address] [place] [address] Dr. Alfredo Lizama EO # 0.4 103/ul Normal 0.0-0.7 [facility] Comment on above: Performed By: #### U MICRO, ERUR #### [facility] [address] [place] [address] Dr. Alfredo Lizama Eosinophils/100 WBC (Bld) 3.5 % Normal 0.9-7.0 [facility] Comment on above: Performed By: #### U MICRO, ERUR #### [facility] [address] [place] [address] Dr. Alfredo Lizama Erythrocyte distribution width (RBC) [Ratio] 13.2 % Normal 11.0-15.0 [facility] Comment on above: Performed By: #### U MICRO, ERUR #### [facility] [address] [place] [address] Dr. Alfredo Lizama Hematocrit (Bld) [Volume fraction] 44.0 % Normal 36.0-48.0 [facility] Comment on above: Performed By: #### U MICRO, ERUR #### [facility] [address] [place] [address] Dr. Alfredo Lizama Hemoglobin (Bld) [Mass/Vol] 14.8 g/dL Normal 12.0-16.0 [facility] Comment on above: Performed By: #### U MICRO, ERUR #### [facility] [address] [place] [address] Dr. Alfredo Lizama IG # 0.03 10e3/ul Normal 0.00-0.03 [facility] Comment on above: Performed By: #### U MICRO, ERUR #### [facility] [address] [place] [address] Dr. Alfredo Lizama IG % 0.2 % Normal 0.0-0.5 [facility] Comment on above: Performed By: #### U MICRO, ERUR #### [facility] [address] [place] [address] Dr. Alfredo Lizama LYMPH # 3.8 103/ul Normal 1.2-3.8 [facility] Comment on above: Performed By: #### U MICRO, ERUR #### [facility] [address] [place] [address] Dr. Alfredo Lizama Lymphocytes/100 WBC (Bld) 31.3 % Normal 20.5-60.0 [facility] Comment on above: Performed By: #### U MICRO, ERUR #### [facility] [address] [place] [address] Dr. Alfredo Lizama MANUAL DIFF REQ NO Normal [facility] Comment on above: Performed By: #### U MICRO, ERUR #### [facility] [address] [place] [address] Dr. Alfredo Lizama MCH (RBC) [Entitic mass] 28.8 pg Normal 26.7-34.0 [facility] Comment on above: Performed By: #### U MICRO, ERUR #### [facility] [address] [address] [address] Alfredo Lizama MCHC (RBC) [Mass/Vol] 33.6 g/dL Normal 29.9-35.2 [facility] Comment on above: Performed By: #### U MICRO, ERUR #### [facility] [address] [place] [address] Dr. Alfredo Lizama MCV (RBC) [Entitic vol] 85.8 fL Normal 81.0-99.0 [facility] Comment on above: Performed By: #### U MICRO, ERUR #### [facility] [address] [place] [address] Dr. Alfredo Lizama MONO # 0.7 103/ul Normal 0.3-0.8 [facility] Comment on above: Performed By: #### U MICRO, ERUR #### [facility] [address] [place] [address] Dr. Alfredo Lizama Monocytes/100 WBC (Bld) 5.8 % Normal 1.7-12.0 [facility] Comment on above: Performed By: #### U MICRO, ERUR #### [facility] [address] [place] [address] Dr. Alfredo Lizama NEUT # 7.1 103/ul Critically high 1.4-6.5 [facility] Comment on above: Performed By: #### U MICRO, ERUR #### [facility] [address] [place] [address] Dr. Alfredo Lizama Neutrophils/100 WBC (Bld) 58.7 % Normal 43.0-75.0 [facility] Comment on above: Performed By: #### U MICRO, ERUR #### [facility] [address] [place] [address] Dr. Alfredo Lizama Platelet mean volume (Bld) [Entitic vol] 9.6 fL Normal 9.5-13.5 [facility] Comment on above: Performed By: #### U MICRO, ERUR #### [facility] [address] [place] [address] Dr. Alfredo Lizama PLT 269 103/ul Normal 150-450 [facility] Comment on above: Performed By: #### U MICRO, ERUR #### [facility] [address] [address] [address] Alfredo Lizama RBC 5.13 106/ul Normal 4.20-5.40 [facility] Comment on above: Performed By: #### U MICRO, ERUR #### [facility] [address] [address] [address] Alfredo Lizama WBC 12.2 103/ul Critically high 4.0-11.0 [facility] Comment on above: Performed By: #### U MICRO, ERUR #### [facility] [address] ABD/PELV W CONon [...] Date: 2022-05-07 14:00 Normal [facility] ER URINE PROFILEon 2 Bilirubin Ql (U) Negative Normal NEGATIVE [facility] Comment on above: Performed By: #### U MICRO, ERUR #### [facility] [address] [address] [address] Alfredo Lizama Clarity (U) CLOUDY Abnormal CLEAR [facility] Comment on above: Performed By: #### U MICRO, ERUR #### [facility] [address] [address] [address] Alfredo Lizama Color (U) LT. YELLOW Normal YELLOW [facility] Comment on above: Performed By: #### U MICRO, ERUR #### [facility] [address] [address] [address] Alfredo Lizama ERUAHD A micrscopic examina tion will be performed if indicated. Normal [facility] Comment on above: Performed By: #### U MICRO, ERUR #### [facility] [address] [address] [address] Alfredo Lizama Glucose Ql (U) Negative Normal NEGATIVE [facility] Comment on above: Performed By: #### U MICRO, ERUR #### [facility] [address] [address] [address] Alfredo Lizama Hemoglobin Ql (U) LARGE Abnormal NEGATIVE [facility] Comment on above: Performed By: #### U MICRO, ERUR #### [facility] [address] [place] [address] Dr. Alfredo Lizama Ketones Ql (U) Negative Normal NEGATIVE [facility] Comment on above: Performed By: #### U MICRO, ERUR #### [facility] [address] [address] [address] Alfredo Lizama LEUKOCYTES MODERATE Abnormal NEGATIVE [facility] Comment on above: Performed By: #### U MICRO, ERUR #### [facility] [address] [place] [address] Dr. Alfredo Lizama Nitrite Ql (U) Positive Abnormal NEGATIVE [facility] Comment on above: Performed By: #### U MICRO, ERUR #### [facility] [address] [place] [address] Dr. Alfredo Lizama pH (U) 8.5 [pH] Normal 5-9 [facility] Comment on above: Performed By: #### U MICRO, ERUR #### [facility] [address] [place] [address] Dr. Alfredo Lizama Protein (U) [Mass/Vol] 100 mg/dL Abnormal NEGATIVE/ TRACE [facility] Comment on above: Performed By: #### U MICRO, ERUR #### [facility] [address] [place] [address] Dr. Alfredo Lizama SPEC GRAVITY 1.015 Normal 1.005-<=1.[address] [place] [address] Comment on above: Performed By: #### U MICRO, ERUR #### [facility] [address] [place] [address] Dr. Alfredo Lizama UR MICRO IND INDICATED Normal [facility] Comment on above: Performed By: #### U MICRO, ERUR #### [facility] [address] [place] [address] Dr. Alfredo Lizama Urobilinogen Qn (U) 1.0 {Tesha'U}/dL Normal 0.2 - 1. 0 [facility] Comment on above: Performed By: #### U MICRO, ERUR #### [facility] [address] [address] [address] Alfredo Lizama PROF CHEM 8 (BAS METB)on Anion gap [Moles/Vol] 12.0 mmol/L Normal [facility] Comment on above: Performed By: #### U MICRO, ERUR #### [facility] [address] [place] [address] Dr. Alfredo Lizama Calcium [Mass/Vol] 8.6 mg/dL Normal 8.5-10.1 [facility] Comment on above: Performed By: #### U MICRO, ERUR #### [facility] [address] [place] [address] Dr. Alfredo Lizama Chloride [Moles/Vol] 101 mmol/L Normal 98-107 [facility] Comment on above: Performed By: #### U MICRO, ERUR #### [facility] [address] [place] [address] Dr. Alfredo Lizama CO2 [Moles/Vol] 28.0 mmol/L Normal 21.0-32.0 [facility] Comment on above: Performed By: #### U MICRO, ERUR #### [facility] [address] [place] [address] Dr. Alfredo Lizama Creatinine [Mass/Vol] 0.77 mg/dL Normal 0.55-1.02 [facility] Comment on above: Performed By: #### U MICRO, ERUR #### [facility] [address] [place] [address] Dr. Alfredo Lizama EGFR-AF SAMOAN >60 Normal >=60 [facility] Comment on above: Performed By: #### U MICRO, ERUR #### [facility] [address] [place] [address] Dr. Alfredo Lizama EGFR-NON AF SAMOAN >60 Normal >=60 [facility] Comment on above: Performed By: #### U MICRO, ERUR #### [facility] [address] [place] [address] Dr. Alfredo Lizama Glucose [Mass/Vol] 96 mg/dL Normal 74-106 [facility] Comment on above: Performed By: #### U MICRO, ERUR #### [facility] [address] [place] [address] Dr. Alfredo Lizama Potassium [Moles/Vol] 4.0 mmol/L Normal 3.5-5.1 [facility] Comment on above: Performed By: #### U MICRO, ERUR #### [facility] [address] [place] [address] Dr. Alfredo Lizama Sodium [Moles/Vol] 137 mmol/L Normal 136-145 [facility] Comment on above: Performed By: #### U MICRO, ERUR #### [facility] [address] [place] [address] Dr. Alfredo Lizama Urea nitrogen [Mass/Vol] 7.0 mg/dL Normal 7.0-18.0 [facility] Comment on above: Performed By: #### U MICRO, ERUR #### [facility] [address] [place] [address] Dr. Alfredo Lizama Urea nitrogen/Creatinine [Mass ratio] 9.1 mg/mg Normal [facility] Comment on above: Performed By: #### U MICRO, ERUR #### [facility] [address] [place] [address] Dr. Alfredo Lizama URINE MICROSCOPIC ONLYon BACTERIA MODERATE Abnormal NONE SEEN [facility] Comment on above: Performed By: #### U MICRO, ERUR #### [facility] [address] [place] [address] Dr. Alfredo Lizama Bacteria identified Cx Nom (U) INDICATED Normal [facility] Comment on above: Performed By: #### U MICRO, ERUR #### [facility] [address] [place] [address] Dr. Alfredo Lizama CAST NONE SEEN Normal NONE SEEN [facility] Comment on above: Performed By: #### U MICRO, ERUR #### [facility] [address] [place] [address] Dr. Alfredo Lizama Crystals LM Nom (Urine sed) NONE SEEN Normal NONE SEEN [facility] Comment on above: Performed By: #### U MICRO, ERUR #### [facility] [address] [address] [address] Alfredo Lizama Epithelial cells LM Ql (Urine sed) FEW Abnormal NONE SEEN /RARE [facility] Comment on above: Performed By: #### U MICRO, ERUR #### [facility] [address] [address] [address] Alfredo Lizama MUCOUS NONE SEEN Normal NONE SEEN [facility] Comment on above: Performed By: #### U MICRO, ERUR #### [facility] [address] [address] [address] Alfredo Lizama RBC 2-5 Abnormal 0-2 [facility] Comment on above: Performed By: #### U MICRO, ERUR #### [facility] [address] [place] [address] Dr. Alfredo Lizama WBC 10-20 Abnormal NONE SEEN [facility] Comment on above: Performed By: #### U MICRO, ERUR #### [facility] [address] [address] [address] Alfredo Lizama CULTURE URINEon 04-10-2022 CULTURE [...] <=20 S F Normal [facility] Comment on above: Performed By: #### U MICRO, ERUR #### [facility] [address] [address] [address] Alfredo Lizama ER URINE PROFILEon 2 Bilirubin Ql (U) Negative Normal NEGATIVE [facility] Comment on above: Performed By: #### U MICRO, ERUR #### [facility] [address] [place] [address] Dr. Alfredo Lizama Clarity (U) CLOUDY Abnormal CLEAR [facility] Comment on above: Performed By: #### U MICRO, ERUR #### [facility] [address] [place] [address] Dr. Alfredo Lizama Color (U) YELLOW Normal YELLOW [facility] Comment on above: Performed By: #### U MICRO, ERUR #### [facility] [address] [place] [address] Dr. Alfredo RAYMUNDO A micrscopic examina tion will be performed if indicated. Normal [facility] Comment on above: Performed By: #### U MICRO, ERUR #### [facility] [address] [place] [address] Dr. Alfredo Lizama Glucose Ql (U) Negative Normal NEGATIVE [facility] Comment on above: Performed By: #### U MICRO, ERUR #### [facility] [address] [place] [address] Dr. Alfredo Lizama Hemoglobin Ql (U) SMALL Abnormal NEGATIVE [facility] Comment on above: Performed By: #### U MICRO, ERUR #### [facility] [address] [place] [address] Dr. Alfredo Lizama Ketones Ql (U) Negative Normal NEGATIVE [facility] Comment on above: Performed By: #### U MICRO, ERUR #### [facility] [address] [place] [address] Dr. Alfredo Lizama LEUKOCYTES LARGE Abnormal NEGATIVE [facility] Comment on above: Performed By: #### U MICRO, ERUR #### [facility] [address] [place] [address] Dr. Alfredo Lizama Nitrite Ql (U) Negative Normal NEGATIVE [facility] Comment on above: Performed By: #### U MICRO, ERUR #### [facility] [address] [place] [address] Dr. Alfredo Lizama pH (U) 7.0 [pH] Normal 5-9 [facility] Comment on above: Performed By: #### U MICRO, ERUR #### [facility] [address] [place] [address] Dr. Alfredo Lizama SPEC GRAVITY <=1.005 Abnormal 1.005-<=1.0 25 [facility] Comment on above: Performed By: #### U MICRO, ERUR #### [facility] [address] [place] [address] Dr. Alfredo Lizama UA PROTEIN Negative Normal NEGATIVE/ TRACE [facility] Comment on above: Performed By: #### U MICRO, ERUR #### [facility] [address] [place] [address] Dr. Alferdo Lizama UR MICRO IND INDICATED Normal [facility] Comment on above: Performed By: #### U MICRO, ERUR #### [facility] [address] [place] [address] Dr. Alfredo Lizama Urobilinogen Qn (U) 0.2 {Tesha'U}/dL Normal 0.2 - 1. 0 [facility] Comment on above: Performed By: #### U MICRO, ERUR #### [facility] [address] [place] [address] Dr. Alfreod Lizama URINE MICROSCOPIC ONLYon BACTERIA MODERATE Abnormal NONE SEEN [facility] Comment on above: Performed By: #### U MICRO, ERUR #### [facility] [address] [place] [address] Dr. Alfredo Lizama Bacteria identified Cx Nom (U) INDICATED Normal [facility] Comment on above: Performed By: #### U MICRO, ERUR #### [facility] [address] [address] [address] Alfredo Lizama CAST NONE SEEN Normal NONE SEEN [facility] Comment on above: Performed By: #### U MICRO, ERUR #### [facility] [address] [address] [address] Alfredo Lizama Crystals LM Nom (Urine sed) NONE SEEN Normal NONE SEEN [facility] Comment on above: Performed By: #### U MICRO, ERUR #### [facility] [address] [address] [address] Alfredo Lizama Epithelial cells LM Ql (Urine sed) FEW Abnormal NONE SEEN /RARE [facility] Comment on above: Performed By: #### U MICRO, ERUR #### [facility] [address] [place] [address] Dr. Alfredo Lizama MUCOUS NONE SEEN Normal NONE SEEN [facility] Comment on above: Performed By: #### U MICRO, ERUR #### [facility] [address] [place] [address] Dr. Alfredo Lizama RBC 5-10 Abnormal 0-2 [facility] Comment on above: Performed By: #### U MICRO, ERUR #### [facility] [address] [place] [address] Dr. Alfredo Lizama WBC (U) [#/Vol] /uL Abnormal NONE SEEN [facility] Comment on above: Performed By: #### U MICRO, ERUR #### [facility] [address] [address] [address] Alfredo Lizaam Basic Metabolic Panelon 11-03 Calcium [Mass/Vol] 8.9 mg/dL Normal 8.2-10.2 [facility] Comment on above: Performed By: #### C BC, CMP, PAB #### [facility] [address] [place] [address] [place] Chloride [Moles/Vol] 101 mmol/L Normal 95-114 [facility] Comment on above: Performed By: #### C BC, CMP, PAB #### [facility] [address] CO2 [Moles/Vol] 29.0 mmol/L Normal 22.0-30.0 [facility] Comment on above: Performed By: #### C DARIUS PATEL, PAB #### [facility] [address] Creatinine [Mass/Vol] 0.48 mg/dL Normal 0.44-1.03 [facility] Comment on above: Performed By: #### C DARIUS PATEL, PAB #### [place] [address] [place] Creatinine Clr Calc Pharmacy 150.29 [facility] Comment on above: Result Comment: PERF ORMED BY: [place] [address] PATHOLOGIST [employer]INT[employer]ENT HUY COX M.D. Performed By: #### C DARIUS PATEL, PAB #### [address] Estimated GFR ( July > 60 [facility] Comment on above: Result Comment: GFR estimated reference range: According to KDOQI guidelines, <60 ml/min/1.73m2 is sufficient to diagnose a patient with chronic kidney disease. Performed By: #### C DARIUS PATEL, PAB #### [address] Estimated GFR (Non- Am > 60 [facility] Comment on above: Performed By: #### C DARIUS PATEL, PAB #### [address] Glucose [Mass/Vol] 111 mg/dL High 70-100 [facility] Comment on above: Result Comment: [place] om Glucose Reference Range is dependent on time and content of last meal. Glucose of more than 200 mg/dL in a nonstressed, ambulatory subject supports the diagnosis of Diabetes Mellitus. ADA recommended reference range Performed By: #### C DARIUS PATEL, PAB #### [address] Potassium [Moles/Vol] 3.6 mmol/L Normal 3.5-5.1 [facility] Comment on above: Performed By: #### C BC, CMP, PAB #### [facility] [address] Sodium [Moles/Vol] 138 mmol/L Normal 136-146 [facility] Comment on above: Performed By: #### C BC, CMP, PAB #### [facility] [address] Urea nitrogen [Mass/Vol] 10 mg/dL Normal 9-23 [facility] Comment on above: Performed By: #### C BC, CMP, PAB #### [facility] [address] Complete Blood Count Auto Di ffon 11-19-2021 Basophils (Bld) [#/Vol] 0.1 10*3/uL Normal 0.0-0.2 [facility] Comment on above: Result Comment: PERF ORMED BY: [place] [address] PATHOLOGIST [employer] HUY COX M.D. Performed By: #### C BC, CMP, PAB #### [facility] [address] Basophils/100 WBC (Bld) 0.8 % Normal . [facility] Comment on above: Performed By: #### C BC, CMP, PAB #### [facility] [address] Eosinophils (Bld) [#/Vol] 0.4 10*3/uL Normal 0.0-0.45 [facility] Comment on above: Performed By: #### C BC, CMP, PAB #### [facility] [address] [place] [address] [place] Eosinophils/100 WBC (Bld) 5.8 % Normal . [facility] Comment on above: Performed By: #### C BC, CMP, PAB #### [facility] [address] Erythrocyte distribution width (RBC) [Ratio] 14.3 % Normal 11.9-15.3 [facility] Comment on above: Performed By: #### C BC, CMP, PAB #### [address] Hematocrit (Bld) [Volume fraction] 36.0 % Normal 34.0-46.4 [facility] Comment on above: Performed By: #### C BC, CMP, PAB #### [address] Hemoglobin (Bld) [Mass/Vol] 11.9 g/dL Normal 11.8-15.4 [facility] Comment on above: Performed By: #### C BC, CMP, PAB #### [address] Lymphocytes (Bld) [#/Vol] 2.7 10*3/uL Normal 1.00-4.8 [facility] Comment on above: Performed By: #### C BC, CMP, PAB #### [address] Lymphocytes/100 WBC (Bld) 37.6 % Normal . [facility] Comment on above: Performed By: #### C BC, CMP, PAB #### [address] MCH (RBC) [Entitic mass] 28.1 pg Normal 24.7-34.3 [facility] Comment on above: Performed By: #### C BC, CMP, PAB #### [address] MCV (RBC) [Entitic vol] 85.3 fL Normal 80-100 [facility] Comment on above: Performed By: #### C BC, CMP, PAB #### [address] Mean Corpuscular HGB Conc 32.9 g/dL Normal 32.0-35.0 [facility] Comment on above: Performed By: #### C BC, CMP, PAB #### [address] Monocytes (Bld) [#/Vol] 0.4 10*3/uL Normal 0.0-0.8 [facility] Comment on above: Performed By: #### C BC, CMP, PAB #### [facility] [address] [place] [address] [place] Monocytes/100 WBC (Bld) 5.2 % Normal . [facility] Comment on above: Performed By: #### C BC, CMP, PAB #### [facility] [address] [place] [address] [place] Neutrophils (Bld) [#/Vol] 3.7 10*3/uL Normal 1.8-7.7 [facility] Comment on above: Performed By: #### C BC, CMP, PAB #### [facility] [address] [place] [address] [place] Neutrophils/100 WBC (Bld) 50.6 % Normal . [facility] Comment on above: Performed By: #### C BC, CMP, PAB #### [facility] [address] [place] [address] [place] Nucleated RBC/100 WBC (Bld) [Ratio] 0.0 % Normal 0-0.5 [facility] Comment on above: Performed By: #### C BC, CMP, PAB #### [facility] [address] [place] [address] [place] Platelet mean volume (Bld) [Entitic vol] 7.6 fL Normal 6.3-10.7 [facility] Comment on above: Performed By: #### C BC, CMP, PAB #### [facility] [address] [place] [address] [place] Platelets (Bld) [#/Vol] 252 10*3/uL Normal 150-450 [facility] Comment on above: Performed By: #### C BC, CMP, PAB #### [facility] [address] [place] [address] [place] RBC (Bld) [#/Vol] 4.22 10*6/uL Normal 3.60-5.00 [facility] Comment on above: Performed By: #### C BC, CMP, PAB #### [facility] [address] [place] [address] [place] WBC (Bld) [#/Vol] 7.2 10*3/uL Normal 4.5-11.0 [facility] Comment on above: Performed By: #### C BC, CMP, PAB #### [facility] [address] [place] [address] Ammoniaon 11-11-2021 Ammonia (P) [Moles/Vol] 26 umol/L Normal 11-35 [facility] Comment on above: Result Comment: PERF ORMED BY: [place] [address] PATHOLOGIST [employer] HUY COX M.D. Performed By: #### C BC, CMP, PAB #### [facility] [address] [place] [address] Hepatic Panelon 11-11-2021 Albumin [Mass/Vol] 3.0 g/dL Low 3.2-5.5 [facility] Comment on above: Performed By: #### C BC, CMP, PAB #### [facility] [address] [place] [address] Albumin/Globulin [Mass ratio] 1.0 {ratio} Normal [facility] Comment on above: Performed By: #### C BC, CMP, PAB #### [address] ALP [Catalytic activity/Vol] 187 U/L High 32-92 [facility] Comment on above: Result Comment: PERF ORMED BY: [place] [address] PATHOLOGIST [employer] HUY COX M.D. Performed By: #### C BC, CMP, PAB #### [facility] [address] [place] [address] ALT [Catalytic activity/Vol] 54 U/L Normal 10-60 [facility] Comment on above: Performed By: #### C BC, CMP, PAB #### [facility] [address] [place] [address] AST [Catalytic activity/Vol] 39 U/L Normal 10-42 [facility] Comment on above: Performed By: #### C BC, CMP, PAB #### [address] Bilirubin [Mass/Vol] 0.3 mg/dL Normal 0.3-1.2 [facility] Comment on above: Performed By: #### C BC, CMP, PAB #### [address] Bilirubin,Indirect Not performed Normal [facility] Comment on above: Performed By: #### C BC, CMP, PAB #### [address] Bilirubin.indirect [Mass/Vol] mg/dL Normal 0.0-0.4 [facility] Comment on above: Performed By: #### C BC, CMP, PAB #### [address] Globulin (S) [Mass/Vol] 3.0 g/dL Normal [facility] Comment on above: Performed By: #### C BC, CMP, PAB #### [address] Protein [Mass/Vol] 6.0 g/dL Low 6.1-7.9 [facility] Comment on above: Performed By: #### C BC, CMP, PAB #### [address] Hepatitis Acute Panelon 03-0 HBsAg Screen Negative Normal Negative [facility] Comment on above: Performed By: #### C BC, CMP, PAB #### [address] Hepatitis A Antibody IgM Negative Normal Negative [facility] Comment on above: Performed By: #### C BC, CMP, PAB #### [address] Hepatitis B Core Antibody IgM Negative Normal Negative [facility] Comment on above: Performed By: #### C BC, CMP, PAB #### [address] Hepatitis C Virus Antibody 0.2 Normal 0.0-0.9 [facility] Comment on above: Performed By: #### C BC, CMP, PAB #### [address] Interpretation Hepatitis C Normal . [facility] Comment on above: Result Comment: Nega tive Not infected with HCV, unless recent infection is suspected or other evidence exists to indicate HCV infection. Performed at: - [facility] [id number] Channel[employer] Runner: Pedro Luis José PhD, Phone: [phone] PERFORMED BY: [place] [address] PATHOLOGIST [employer]ENT HUY COX M.D. Performed By: #### C BC, CMP, PAB #### [address] [place] liveron 11-11-2021 liver [facility] [place] [address] [place] [address] Ultrasound Report Signed Patient: Morales Lee MR#: [id number] : 1975 Acct:[id number] Age/Sex: 46 / F ADM Date: 10/29/21 Loc: Room: 8B7639-4 Type: ADM IN Attending Dr: Richard Acevedo [...] Alexandru Pond M.D.11/11/2021 10:23 AM Dictation Location: [place] [address] Tech: Ermelinda Diaz Transcribed By: [facility] 11/11/21 1023 Dictated By: Alexandru Pond DO 11/11/21 1018 Signed By: 11/11/21 1023 Normal [facility] Complete Blood Count Auto Di ffon 11-10-2021 Basophils (Bld) [#/Vol] 0.1 10*3/uL Normal 0.0-0.2 [facility] Comment on above: Result Comment: PERF ORMED BY: [place] [address] PATHOLOGIST [employer] HUY COX M.D. Performed By: #### C BC #### [address] Basophils/100 WBC (Bld) 1.2 % Normal . [facility] Comment on above: Performed By: #### C BC #### [address] Eosinophils (Bld) [#/Vol] 0.3 10*3/uL Normal 0.0-0.45 [facility] Comment on above: Performed By: #### C BC #### [address] Eosinophils/100 WBC (Bld) 5.9 % Normal . [facility] Comment on above: Performed By: #### C BC #### [address] Erythrocyte distribution width (RBC) [Ratio] 14.2 % Normal 11.9-15.3 [facility] Comment on above: Performed By: #### C BC #### [address] Hematocrit (Bld) [Volume fraction] 37.1 % Normal 34.0-46.4 [facility] Comment on above: Performed By: #### C BC #### [address] Hemoglobin (Bld) [Mass/Vol] 12.3 g/dL Normal 11.8-15.4 [facility] Comment on above: Performed By: #### C BC #### [address] Lymphocytes (Bld) [#/Vol] 2.0 10*3/uL Normal 1.00-4.8 [facility] Comment on above: Performed By: #### C BC #### [address] Lymphocytes/100 WBC (Bld) 36.5 % Normal . [facility] Comment on above: Performed By: #### C BC #### [address] MCH (RBC) [Entitic mass] 28.6 pg Normal 24.7-34.3 [facility] Comment on above: Performed By: #### C BC #### [address] MCV (RBC) [Entitic vol] 86.5 fL Normal 80-100 [facility] Comment on above: Performed By: #### C BC #### [address] Mean Corpuscular HGB Conc 33.1 g/dL Normal 32.0-35.0 [facility] Comment on above: Performed By: #### C BC #### [address] Monocytes (Bld) [#/Vol] 0.3 10*3/uL Normal 0.0-0.8 [facility] Comment on above: Performed By: #### C BC #### [address] Monocytes/100 WBC (Bld) 5.3 % Normal . [facility] Comment on above: Performed By: #### C BC #### [address] Neutrophils (Bld) [#/Vol] 2.8 10*3/uL Normal 1.8-7.7 [facility] Comment on above: Performed By: #### C BC #### [address] Neutrophils/100 WBC (Bld) 51.1 % Normal . [facility] Comment on above: Performed By: #### C BC #### [facility] [address] Nucleated RBC/100 WBC (Bld) [Ratio] 0.1 % Normal 0-0.5 [facility] Comment on above: Performed By: #### C BC #### [address] Platelet mean volume (Bld) [Entitic vol] 7.8 fL Normal 6.3-10.7 [facility] Comment on above: Performed By: #### C BC #### [address] Platelets (Bld) [#/Vol] 214 10*3/uL Normal 150-450 [facility] Comment on above: Performed By: #### C BC #### [address] RBC (Bld) [#/Vol] 4.28 10*6/uL Normal 3.60-5.00 [facility] Comment on above: Performed By: #### C BC #### [address] WBC (Bld) [#/Vol] 5.4 10*3/uL Normal 4.5-11.0 [facility] Comment on above: Performed By: #### C BC #### [address] Comprehensive Metabolic Pane shree 11-10-2021 Albumin [Mass/Vol] 2.9 g/dL Low 3.2-5.5 [facility] Comment on above: Performed By: #### C BC, CMP, PAB #### [address] Albumin/Globulin [Mass ratio] 0.9 {ratio} Normal [facility] Comment on above: Performed By: #### C BC, CMP, PAB #### [address] ALP [Catalytic activity/Vol] 201 U/L High 32-92 [facility] Comment on above: Performed By: #### C BC, CMP, PAB #### [facility] [address] ALT [Catalytic activity/Vol] 67 U/L High 10-60 [facility] Comment on above: Performed By: #### C BC, CMP, PAB #### [address] AST [Catalytic activity/Vol] 66 U/L High 10-42 [facility] Comment on above: Performed By: #### C BC, CMP, PAB #### [address] Bilirubin [Mass/Vol] 0.4 mg/dL Normal 0.3-1.2 [facility] Comment on above: Performed By: #### C BC, CMP, PAB #### [address] Calcium [Mass/Vol] 8.7 mg/dL Normal 8.2-10.2 [facility] Comment on above: Performed By: #### C BC, CMP, PAB #### [place] [address] [place] Chloride [Moles/Vol] 100 mmol/L Normal 95-114 [facility] Comment on above: Performed By: #### C BC, CMP, PAB #### [facility] [address] [place] [address] CO2 [Moles/Vol] 26.4 mmol/L Normal 22.0-30.0 [facility] Comment on above: Performed By: #### C BC, CMP, PAB #### [facility] [address] [place] [address] [place] Creatinine [Mass/Vol] 0.50 mg/dL Normal 0.44-1.03 [facility] Comment on above: Performed By: #### C BCDARIUS, PAB #### [address] Creatinine Clr Calc Pharmacy 142.11 [facility] Comment on above: Result Comment: PERF ORMED BY: [place] [address] PATHOLOGIST [employer] SUPERINT[employer]ENT HUY COX M.D. Performed By: #### C BC, CMP, PAB #### [address] Estimated GFR ( July > 60 [facility] Comment on above: Result Comment: GFR estimated reference range: According to KDOQI guidelines, <60 ml/min/1.73m2 is sufficient to diagnose a patient with chronic kidney disease. Performed By: #### C DARIUS PATEL, PAB #### [address] Estimated GFR (Non- Am > 60 [facility] Comment on above: Performed By: #### C DARIUS PATEL, PAB #### [address] Globulin (S) [Mass/Vol] 3.1 g/dL [facility] Comment on above: Performed By: #### C DARIUS PATEL, PAB #### [address] Glucose [Mass/Vol] 110 mg/dL High 70-100 [facility] Comment on above: Result Comment: [place] Glucose Reference Range is dependent on time and content of last meal. Glucose of more than 200 mg/dL in a nonstressed, ambulatory subject supports the diagnosis of Diabetes Mellitus. ADA recommended reference range Performed By: #### C BC, CMP, PAB #### [address] Potassium [Moles/Vol] 4.0 mmol/L Normal 3.5-5.1 [facility] Comment on above: Performed By: #### C BC, CMP, PAB #### [facility] [address] [place] [id number] [place] Protein [Mass/Vol] 6.0 g/dL Low 6.1-7.9 [facility] Comment on above: Performed By: #### C BC, CMP, PAB #### [facility] [address] [place] [id number] [place] Sodium [Moles/Vol] 136 mmol/L Normal 136-146 [facility] Comment on above: Performed By: #### C BC, CMP, PAB #### [facility] [address] [place] [address] [place] Urea nitrogen [Mass/Vol] 8 mg/dL Low 9- [facility] Comment on above: Performed By: #### C BC, CMP, PAB #### [facility] [address] [place] [address] [place] Dipstick and Microscopicon 0 11-10-2021 Appearance (U) Turbid Critically abnormal Clear [facility] Comment on above: Order Comment: Name Collection Type:: Alvares Catheter Performed By: #### C BC, CMP, PAB #### [facility] [address] [place] [address] [place] Bacteria,Urine 3+ High None Seen [facility] Comment on above: Order Comment: Name Collection Type:: Alvares Catheter Performed By: #### C BC, CMP, PAB #### [facility] [address] [place] [address] [place] Bilirubin,Urine Negative Normal Negative [facility] Comment on above: Order Comment: Name Collection Type:: Alvares Catheter Performed By: #### C BC, CMP, PAB #### [facility] [address] [place] [phone] [place] Color (U) Yellow Normal Yellow [facility] Comment on above: Order Comment: Name Collection Type:: Alvares Catheter Performed By: #### C BC, CMP, PAB #### [facility] [address] [place] [id number] [place] Glucose Ql (U) Normal Normal Normal [facility] Comment on above: Order Comment: Name Collection Type:: Alvares Catheter Performed By: #### C BC, CMP, PAB #### [facility] [address] [place] [address] [place] Hyaline Casts,Urine None Seen Normal 0-1 [facility] Comment on above: Order Comment: Name Collection Type:: Alvares Catheter Performed By: #### C BC, CMP, PAB #### [facility] [address] [place] [address] [place] Ketones Ql (U) Negative Normal Negative [facility] Comment on above: Order Comment: Name Collection Type:: Alvares Catheter Performed By: #### C BC, CMP, PAB #### [address] Leukocyte esterase Test strip Ql (U) 3+ High Negative [facility] Comment on above: Order Comment: Name Collection Type:: Alvares Catheter Performed By: #### C BC, CMP, PAB #### [address] Nitrite,Urine Positive High Negative [facility] Comment on above: Order Comment: Name Collection Type:: Alvares Catheter Performed By: #### C BC, CMP, PAB #### [place] [address] [place] Occult Blood,Urine 2+ High Negative [facility] Comment on above: Order Comment: Name Collection Type:: Alvares Catheter Result Comment: PERF ORMED BY: [place] [address] PATHOLOGIST [employer] SUPERINTENDENT HUY COX M.D. Performed By: #### C BC, CMP, PAB #### [facility] [address] [place] [address] [place] Other Casts,Urine None Seen Normal None Seen [facility] Comment on above: Order Comment: Name Collection Type:: Alvares Catheter Result Comment: PERF ORMED BY: [place] [address] PATHOLOGIST [employer] SUPERINT[employer]ENT HUY COX M.D. Performed By: #### C BC, CMP, PAB #### [facility] [address] [place] [address] [place] pH (U) 8.5 [pH] Normal 5.0-9.0 [facility] Comment on above: Order Comment: Name Collection Type:: Alvares Catheter Performed By: #### C BC, CMP, PAB #### [place] [address] [place] Protein,Urine Negative Normal Negative [facility] Comment on above: Order Comment: Name Collection Type:: Alvares Catheter Performed By: #### C BC, CMP, PAB #### [place] [address] [place] RBC,Urine 1-2 Normal 0-4 [facility] Comment on above: Order Comment: Name Collection Type:: Alvares Catheter Performed By: #### C BC, CMP, PAB #### [address] Specificy [place],Urine 1.006 Normal 1.001-1.030 [facility] Comment on above: Order Comment: Name Collection Type:: Alvares Catheter Performed By: #### C BC, CMP, PAB #### [place] [address] [place] Squamous Epithelial Cell,Urine 3-4 High 0-2 [facility] Comment on above: Order Comment: Name Collection Type:: Alvares Catheter Performed By: #### C BC, CMP, PAB #### [address] Triple Phosphate Crystal,Urine 2+ Normal [facility] Comment on above: Order Comment: Name Collection Type:: Alvares Catheter Performed By: #### C BC, CMP, PAB #### [place] [address] [place] Urobilinogen,Urine Normal Normal Normal [facility] Comment on above: Order Comment: Name Collection Type:: Alvares Catheter Performed By: #### C BC, CMP, PAB #### [place] [address] [place] WBC,Urine 20-49 High 0-4 [facility] Comment on above: Order Comment: Name Collection Type:: Alvares Catheter Performed By: #### C BC, CMP, PAB #### [facility] [address] [place] [address] Urine Cultureon 11-10-2021 Bacteria identified Cx Nom (U) ORGANISM: Providencia rettgeri (O:PRORET) [place] Count >100,000 Aerobic JOSE Charge (NUC86) SUSCEPTIBILITY [...] RESISTANT TO ALL B-LACTAM DRUGS. PERFORMED BY: [place] [address] PATHOLOGIST [employer] SUPERINTENDENT HUY COX M.D. Normal [facility] Comment on above: Performed By: #### C BC, CMP, PAB #### [address] Basic Metabolic Panelon Calcium [Mass/Vol] 8.7 mg/dL Normal 8.2-10.2 [facility] Comment on above: Performed By: #### B MP, CBC #### [address] Chloride [Moles/Vol] 102 mmol/L Normal 95-114 [facility] Comment on above: Performed By: #### B MP, CBC #### [facility] [address] CO2 [Moles/Vol] 25.5 mmol/L Normal 22.0-30.0 [facility] Comment on above: Performed By: #### B MP, CBC #### [facility] [address] Creatinine [Mass/Vol] 0.71 mg/dL Normal 0.44-1.03 [facility] Comment on above: Performed By: #### B MP, CBC #### [facility] [address] Creatinine Clr Calc Pharmacy 100.08 [facility] Comment on above: Result Comment: PERF ORMED BY: [place] [address] PATHOLOGIST [employer]ENT HUY COX M.D. Performed By: #### B MP, CBC #### [address] Estimated GFR ( July > 60 [facility] Comment on above: Result Comment: GFR estimated reference range: According to KDOQI guidelines, <60 ml/min/1.73m2 is sufficient to diagnose a patient with chronic kidney disease. Performed By: #### B MP, CBC #### [facility] [address] [place] [address] Estimated GFR (Non- Am > 60 [facility] Comment on above: Performed By: #### B MP, CBC #### [facility] [address] Glucose [Mass/Vol] 104 mg/dL High 70-100 [facility] Comment on above: Result Comment: [place] Glucose Reference Range is dependent on time and content of last meal. Glucose of more than 200 mg/dL in a nonstressed, ambulatory subject supports the diagnosis of Diabetes Mellitus. ADA recommended reference range Performed By: #### B MP, CBC #### [address] Potassium [Moles/Vol] 4.1 mmol/L Normal 3.5-5.1 [facility] Comment on above: Performed By: #### B MP, CBC #### [address] Sodium [Moles/Vol] 137 mmol/L Normal 136-146 [facility] Comment on above: Performed By: #### B MP, CBC #### [address] Urea nitrogen [Mass/Vol] 10 mg/dL Normal 9-23 [facility] Comment on above: Performed By: #### B MP, CBC #### [address] Complete Blood Count Auto Di ffon 11-06-2021 Basophils (Bld) [#/Vol] 0.1 10*3/uL Normal 0.0-0.2 [facility] Comment on above: Result Comment: PERF ORMED BY: [place] [address] PATHOLOGIST [employer] HUY COX M.D. Performed By: #### B MP, CBC #### [address] Basophils/100 WBC (Bld) 0.8 % Normal . [facility] Comment on above: Performed By: #### B MP, CBC #### [address] Eosinophils (Bld) [#/Vol] 0.4 10*3/uL Normal 0.0-0.45 [facility] Comment on above: Performed By: #### B MP, CBC #### [place] [address] [place] Eosinophils/100 WBC (Bld) 5.5 % Normal . [facility] Comment on above: Performed By: #### B MP, CBC #### [address] Erythrocyte distribution width (RBC) [Ratio] 14.2 % Normal 11.9-15.3 [facility] Comment on above: Performed By: #### B MP, CBC #### [address] Hematocrit (Bld) [Volume fraction] 36.0 % Normal 34.0-46.4 [facility] Comment on above: Performed By: #### B MP, CBC #### [address] Hemoglobin (Bld) [Mass/Vol] 12.0 g/dL Normal 11.8-15.4 [facility] Comment on above: Performed By: #### B MP, CBC #### [address] Lymphocytes (Bld) [#/Vol] 2.4 10*3/uL Normal 1.00-4.8 [facility] Comment on above: Performed By: #### B MP, CBC #### [address] Lymphocytes/100 WBC (Bld) 35.2 % Normal . [facility] Comment on above: Performed By: #### B MP, CBC #### [address] MCH (RBC) [Entitic mass] 28.9 pg Normal 24.7-34.3 [facility] Comment on above: Performed By: #### B MP, CBC #### [address] MCV (RBC) [Entitic vol] 86.4 fL Normal 80-100 [facility] Comment on above: Performed By: #### B MP, CBC #### [address] Mean Corpuscular HGB Conc 33.4 g/dL Normal 32.0-35.0 [facility] Comment on above: Performed By: #### B MP, CBC #### [address] Monocytes (Bld) [#/Vol] 0.3 10*3/uL Normal 0.0-0.8 [facility] Comment on above: Performed By: #### B MP, CBC #### [facility] [address] [place] [address] [place] Monocytes/100 WBC (Bld) 4.8 % Normal . [facility] Comment on above: Performed By: #### B MP, CBC #### [facility] [address] [place] [address] [place] Neutrophils (Bld) [#/Vol] 3.7 10*3/uL Normal 1.8-7.7 [facility] Comment on above: Performed By: #### B MP, CBC #### [facility] [address] Neutrophils/100 WBC (Bld) 53.7 % Normal . [facility] Comment on above: Performed By: #### B MP, CBC #### [facility] [address] [place] [address] [place] Nucleated RBC/100 WBC (Bld) [Ratio] 0.0 % Normal 0-0.5 [facility] Comment on above: Performed By: #### B MP, CBC #### [facility] [address] [place] [address] [place] Platelet mean volume (Bld) [Entitic vol] 8.2 fL Normal 6.3-10.7 [facility] Comment on above: Performed By: #### B MP, CBC #### [facility] [address] [place] [address] [place] Platelets (Bld) [#/Vol] 235 10*3/uL Normal 150-450 [facility] Comment on above: Performed By: #### B MP, CBC #### [facility] [address] [place] [address] [place] RBC (Bld) [#/Vol] 4.17 10*6/uL Normal 3.60-5.00 [facility] Comment on above: Performed By: #### B MP, CBC #### [facility] [address] [place] [address] [place] WBC (Bld) [#/Vol] 6.9 10*3/uL Normal 4.5-11.0 [facility] Comment on above: Performed By: #### B MP, CBC #### [place] [phone] [facility] US venous duplex LE BIon US venous duplex LE BI [facility] [place] [address] [place] [address] Ultrasound Report Signed Patient: Morales Lee MR#: [id number] : 1975 Acct:[id number] Age/Sex: 46 / F ADM Date: 10/29/21 Loc: Room: [address] [place] [address] Type: ADM IN Attending Dr: Richard Acevedo [...] Carlos Neal MD11/04/2021 11:36 AM Dictation Location: [place] [address] Tech: Natalia Rivas Transcribed By: CORTNEY 11/04/21 1136 Dictated By: Juan Carlos Neal MD 11/04/21 1135 Signed By: 11/04/21 1136 Normal [facility] Complete Blood Count Auto Di ffon 10-30-2021 Basophils (Bld) [#/Vol] 0.0 10*3/uL Normal 0.0-0.2 [facility] Comment on above: Result Comment: PERF ORMED BY: [place] [address] PATHOLOGIST [employer]INT[employer]ENT HUY COX M.D. Performed By: #### C BC, CMP, PAB #### [facility] [address] [place] [id number] [place] Basophils/100 WBC (Bld) 0.6 % Normal . [facility] Comment on above: Performed By: #### C BC, CMP, PAB #### [facility] [address] [place] [address] [place] Eosinophils (Bld) [#/Vol] 0.4 10*3/uL Normal 0.0-0.45 [facility] Comment on above: Performed By: #### C BC, CMP, PAB #### [facility] [address] [place] [address] [place] Eosinophils/100 WBC (Bld) 4.9 % Normal . [facility] Comment on above: Performed By: #### C BC, CMP, PAB #### [facility] [address] Erythrocyte distribution width (RBC) [Ratio] 14.3 % Normal 11.9-15.3 [facility] Comment on above: Performed By: #### C BC, CMP, PAB #### [facility] [address] [place] [address] [place] Hematocrit (Bld) [Volume fraction] 36.1 % Normal 34.0-46.4 [facility] Comment on above: Performed By: #### C BC, CMP, PAB #### [facility] [address] [place] [address] [place] Hemoglobin (Bld) [Mass/Vol] 12.1 g/dL Normal 11.8-15.4 [facility] Comment on above: Performed By: #### C BC, CMP, PAB #### [facility] [address] [place] [address] [place] Lymphocytes (Bld) [#/Vol] 2.8 10*3/uL Normal 1.00-4.8 [facility] Comment on above: Performed By: #### C BC, CMP, PAB #### [facility] [address] [place] [phone] [place] Lymphocytes/100 WBC (Bld) 39.0 % Normal . [facility] Comment on above: Performed By: #### C BC, CMP, PAB #### [facility] [address] MCH (RBC) [Entitic mass] 28.7 pg Normal 24.7-34.3 [facility] Comment on above: Performed By: #### C BC, CMP, PAB #### [facility] [address] MCV (RBC) [Entitic vol] 85.7 fL Normal 80-100 [facility] Comment on above: Performed By: #### C BC, CMP, PAB #### [facility] [address] Mean Corpuscular HGB Conc 33.4 g/dL Normal 32.0-35.0 [facility] Comment on above: Performed By: #### C BC, CMP, PAB #### [address] Monocytes (Bld) [#/Vol] 0.4 10*3/uL Normal 0.0-0.8 [facility] Comment on above: Performed By: #### C BC, CMP, PAB #### [address] Monocytes/100 WBC (Bld) 5.2 % Normal . [facility] Comment on above: Performed By: #### C BC, CMP, PAB #### [facility] [address] Neutrophils (Bld) [#/Vol] 3.6 10*3/uL Normal 1.8-7.7 [facility] Comment on above: Performed By: #### C BC, CMP, PAB #### [place] [address] [place] Neutrophils/100 WBC (Bld) 50.3 % Normal . [facility] Comment on above: Performed By: #### C BC, CMP, PAB #### [facility] [address] Nucleated RBC/100 WBC (Bld) [Ratio] 0.0 % Normal 0-0.5 [facility] Comment on above: Performed By: #### C BC, CMP, PAB #### [address] Platelet mean volume (Bld) [Entitic vol] 8.1 fL Normal 6.3-10.7 [facility] Comment on above: Performed By: #### C BC, CMP, PAB #### [facility] [address] Platelets (Bld) [#/Vol] 261 10*3/uL Normal 150-450 [facility] Comment on above: Performed By: #### C BC, CMP, PAB #### [address] RBC (Bld) [#/Vol] 4.22 10*6/uL Normal 3.60-5.00 [facility] Comment on above: Performed By: #### C BC, CMP, PAB #### [address] WBC (Bld) [#/Vol] 7.2 10*3/uL Normal 4.5-11.0 [facility] Comment on above: Performed By: #### C BC, CMP, PAB #### [address] Comprehensive Metabolic Pane shree 10-30-2021 Albumin [Mass/Vol] 2.8 g/dL Low 3.2-5.5 [facility] Comment on above: Performed By: #### C BC, CMP, PAB #### [address] Albumin/Globulin [Mass ratio] 1.0 {ratio} Normal [facility] Comment on above: Performed By: #### C BC, CMP, PAB #### [address] ALP [Catalytic activity/Vol] 116 U/L High 32-92 [facility] Comment on above: Performed By: #### C BC, CMP, PAB #### [place] [address] [place] ALT [Catalytic activity/Vol] 20 U/L Normal 10-60 [facility] Comment on above: Performed By: #### C BC CMP, PAB #### [facility] [address] AST [Catalytic activity/Vol] 22 U/L Normal 10-42 [facility] Comment on above: Performed By: #### C BC CMP, PAB #### [facility] [address] Bilirubin [Mass/Vol] 0.5 mg/dL Normal 0.3-1.2 [facility] Comment on above: Performed By: #### C JORGE CMP, PAB #### [facility] [address] Calcium [Mass/Vol] 8.7 mg/dL Normal 8.2-10.2 [facility] Comment on above: Performed By: #### C BC CMP, PAB #### [address] Chloride [Moles/Vol] 105 mmol/L Normal 95-114 [facility] Comment on above: Performed By: #### C JORGE CMP, PAB #### [facility] [address] CO2 [Moles/Vol] 26.8 mmol/L Normal 22.0-30.0 [facility] Comment on above: Performed By: #### C BC CMP, PAB #### [facility] [address] Creatinine [Mass/Vol] 0.51 mg/dL Normal 0.44-1.03 [facility] Comment on above: Performed By: #### C BC CMP, PAB #### [facility] [address] [place] [address] [place] Creatinine Clr Calc Pharmacy 123.73 [facility] Comment on above: Performed By: #### C BC, CMP, PAB #### [facility] [address] Estimated GFR ( July > 60 [facility] Comment on above: Result Comment: GFR estimated reference range: According to KDOQI guidelines, <60 ml/min/1.73m2 is sufficient to diagnose a patient with chronic kidney disease. Performed By: #### C DARIUS PATEL, PAB #### [address] Estimated GFR (Non- Am > 60 Normal [facility] Comment on above: Performed By: #### C BC CMP, PAB #### [address] Globulin (S) [Mass/Vol] 2.8 g/dL Normal [facility] Comment on above: Performed By: #### C DARIUS PATEL, PAB #### [address] Glucose [Mass/Vol] 115 mg/dL High 70-100 [facility] Comment on above: Result Comment: [place] Glucose Reference Range is dependent on time and content of last meal. Glucose of more than 200 mg/dL in a nonstressed, ambulatory subject supports the diagnosis of Diabetes Mellitus. ADA recommended reference range Performed By: #### C DARIUS PATEL, PAB #### [address] Potassium [Moles/Vol] 3.7 mmol/L Normal 3.5-5.1 [facility] Comment on above: Performed By: #### C BC CMP, PAB #### [address] Protein [Mass/Vol] 5.6 g/dL Low 6.1-7.9 [facility] Comment on above: Performed By: #### C BC CMP, PAB #### [place] [address] [place] Sodium [Moles/Vol] 140 mmol/L Normal 136-146 [facility] Comment on above: Performed By: #### C BC, CMP, PAB #### [address] Urea nitrogen [Mass/Vol] 7 mg/dL Low 9-23 [facility] Comment on above: Performed By: #### C BC, CMP, PAB #### [facility] [address] [place] [address] [place] Dipstick and Microscopicon 0 10-30-2021 Appearance (U) Clear Normal Clear [facility] Comment on above: Order Comment: Name Collection Type:: Voided Performed By: #### A DDONUAPLUS, CUU #### [place] [address] [place] Bacteria,Urine 4+ High None Seen [facility] Comment on above: Order Comment: Name Collection Type:: Voided Performed By: #### A DDONUAPLUS, CUU #### [place] [address] [place] Bilirubin,Urine Negative Normal Negative [facility] Comment on above: Order Comment: Name Collection Type:: Voided Performed By: #### A DDONUAPLUS, CUU #### [place] [address] [place] Color (U) Yellow Normal Yellow [facility] Comment on above: Order Comment: Name Collection Type:: Voided Performed By: #### A DDONUAPLUS, CUU #### [place] [address] [place] Glucose Ql (U) Normal Normal Normal [facility] Comment on above: Order Comment: Name Collection Type:: Voided Performed By: #### A DDONUAPLUS, CUU #### [facility] [address] [place] [address] [place] Hyaline Casts,Urine 0-8 Normal 0-8 [facility] Comment on above: Order Comment: Name Collection Type:: Voided Result Comment: PERF ORMED BY: [place] [address] PATHOLOGIST [employer] SUPERINT[employer]ENT HUY COX M.D. Performed By: #### A DDONUAPLUS, CUU #### [facility] [address] [place] [address] [place] Ketones Ql (U) Negative Normal Negative [facility] Comment on above: Order Comment: Name Collection Type:: Voided Performed By: #### A DDONUAPLUS, CUU #### [address] Leukocyte esterase Test strip Ql (U) 3+ High Negative [facility] Comment on above: Order Comment: Name Collection Type:: Voided Performed By: #### A DDONUAPLUS, CUU #### [place] [address] [place] Nitrite,Urine Positive High Negative [facility] Comment on above: Order Comment: Name Collection Type:: Voided Performed By: #### A DDONUAPLUS, CUU #### [address] Occult Blood,Urine Negative Normal Negative [facility] Comment on above: Order Comment: Name Collection Type:: Voided Result Comment: PERF ORMED BY: [place] [address] PATHOLOGIST [employer] SUPERINTENDENT HUY COX M.D. Performed By: #### A DDONUAPLUS, CUU #### [place] [address] [place] pH (U) 5.5 [pH] Normal 5.0-9.0 [facility] Comment on above: Order Comment: Name Collection Type:: Voided Performed By: #### A DDONUAPLUS, CUU #### [place] [address] [place] Protein,Urine Negative Normal Negative [facility] Comment on above: Order Comment: Name Collection Type:: Voided Performed By: #### A DDONUAPLUS, CUU #### [place] [address] [place] RBC LM.HPF (Urine sed) [#/Area] 0 /[HPF] Normal 0-4 [facility] Comment on above: Order Comment: Name Collection Type:: Voided Performed By: #### A DDONUAPLUS, CUU #### [place] [address] [place] Specificy [place],Urine 1.012 Normal 1.001-1.030 [facility] Comment on above: Order Comment: Name Collection Type:: Voided Performed By: #### A DDONUAPLUS, CUU #### [address] Squamous Epithelial Cell,Urine 0-1 Normal 0-2 [facility] Comment on above: Order Comment: Name Collection Type:: Voided Performed By: #### A DDONUAPLUS, CUU #### [address] Urobilinogen,Urine Normal Normal Normal [facility] Comment on above: Order Comment: Name Collection Type:: Voided Performed By: #### A DDONUAPLUS, CUU #### [address] WBC,Urine 20-49 High 0-4 [facility] Comment on above: Order Comment: Name Collection Type:: Voided Performed By: #### A DDONUAPLUS, CUU #### [address] Prealbuminon 10-30-2021 Prealbumin [Mass/Vol] 13.1 mg/dL Low 18.0-38.0 [facility] Comment on above: Result Comment: PERF ORMED BY: [place] [address] PATHOLOGIST [employer] SUPERINTENDENT HUY COX M.D. Performed By: #### C BC, CMP, PAB #### [address] Urine Cultureon 10-30-2021 Bacteria identified Cx Nom (U) ORGANISM: Escherichia coli (O:ESCCOL) [place] Count >100,000 Aerobic JOSE Charge (NUC86) SUSCEPTIBILITY [...] RESISTANT TO ALL B-LACTAM DRUGS. PERFORMED BY: [place] [address] PATHOLOGIST [employer] SUPERINTENDENT HUY COX M.D. Normal [facility] Comment on above: Performed By: #### A DDONUAPLUS, [facility] #### [address] [facility] SARS-CoV-2 (COVID-19) RNA ADRIÁN+probe Ql (Unsp spec) Negative Normal Negative [facility] Comment on above: Order Comment: Healt hcare Worker?: N Result Comment: Testing for SARS-CoV-2 by RT-PCR This test was developed and its performance characteristics determined by [employer] and validated at the [facility]. This test has not been FDA [...] is terminated or revoked sooner. PERFORMED BY: [place] [address] PATHOLOGIST [employer] SUPERINTENDENT HUY COX M.D. Performed By: #### C OVID 19 [facility] #### [address] Clinical Event Note-Need for Hospital Bedon [...] of the lumbar region. Provider/Team Contact Info-Pager [phone] Electronic Signatures: Sharmin Guaman (WINDOW SYSTEMS ADMINISTRATOR-WIRELESS MANAGER) (Signed 02-Oct-2021 15:19) Authored: Clinical Event Note Last Updated: 02-Oct-2021 15:19 by Sharmin Guaman (WINDOW SYSTEMS ADMINISTRATOR-WIRELESS MANAGER) Normal [facility] Clinical Event Note-Need [...] self propel or has a career development consultant to provide assistance. Provider/Team Contact Info-Pager [phone] Electronic Signatures: Sharmin Guaman (WINDOW SYSTEMS ADMINISTRATOR-WIRELESS MANAGER) (Signed 02-Oct-2021 15:27) Authored: Clinical Event Note Last Updated: 02-Oct-2021 15:27 by Sharmin Guaman (WINDOW SYSTEMS ADMINISTRATOR-WIRELESS MANAGER) Normal [facility] Daily Progress Note-Neurosur geryon 10-02-2021 Daily Progress Note-Neurosurgery Service: Neurosurgery Subjective Data: MORALES LEE is a 46 year old Female who is Hospital Day # 18 and POD #11 for posterior L4-L5 decompression;posterior L4-L5 arthrodesis. Objective Data: Objective Information: T PRBPSpO2 [id number]/8397% Date/Time10/02 1: 1: 1: 1: 1: Range(36.2C [...] 2021 10:00 pm000 Oct 01, 2021 2:00 [id number] The Intake and Output Totals for the [...] the note. I personally evaluated the patient [id number] Electronic Signatures: Kenneth Philippe (Resident)) (Signed 02-Oct-2021 06:52) Authored: Service, Subjective Data, Objective Data, Assessment and Plan, Note Completion Lex Frederick) (Signed 02-Oct-2021 15:16) Authored: Note Completion Co-Signer: Service, Subjective Data, Objective Data, Assessment and Plan, Note Completion Last Updated: 02-Oct-2021 15:16 by Lex Frederick) [facility] Clinical Event Note-Discharg e [...] to function in her home environment with [facility]. Ultimately, patient's allowed patient to make final decision regarding discharge. Will ensure HHC orders placed and hospital bed ordered. Will discuss with discharge team organizing transportation home given patient's post op pain and duration of trip. Electronic Signatures: Ambrocio Izaguirre (WINDOW SYSTEMS ADMINISTRATOR-WIRELESS MANAGER) (Signed 01-Oct-2021 17:11) Authored: Clinical Event Note Last Updated: 01-Oct-2021 17:11 by Ambrocio Izaguirre (WINDOW SYSTEMS ADMINISTRATOR-WIRELESS MANAGER) Normal [facility] Clinical Event Note-Need [...] when lying flat. Electronic Signatures: Ambrocio Izaguirre (WINDOW SYSTEMS ADMINISTRATOR-WIRELESS MANAGER) (Signed 01-Oct-2021 14:48) Authored: Clinical Event Note Last Updated: 01-Oct-2021 14:48 by Ambrocio Izaguirre (WINDOW SYSTEMS ADMINISTRATOR-WIRELESS MANAGER) Normal [facility] Daily Progress Note-Neurosur leonidasgaurang 10-01-2021 Daily Progress Note-Neurosurgery Service: Neurosurgery Subjective Data: MORALES LEE is a 46 year old Female who is Hospital Day # 17 and POD #10 for posterior L4-L5 decompression;posterior L4-L5 arthrodesis. Objective Data: Objective Information: T PRBPSpO2 [id number]/7194% Date/Time10/01 0: 0:381 0:381 0:381 0:38 Range(35.6C - 36.8C ) (64 - 96 ) (16 - 19 ) (94 - 138 )/ (59 - 83 ) (92% - 94% ) Pain reported at 09/30 9:00: 2 = Mild ---- Intake and Output ----- Mn/Dy/Year TimeIntakeOutputNet Sep 29, 2021 10:00 [id number] Sep 29, 2021 2:00 [id number] Sep 29, 2021 6:00 am000 The Intake [...] cancelled. Normal [facility] Daily Progress Note-Neurosur leonidasyon 09-30-2021 Daily Progress Note-Neurosurgery Service: Neurosurgery Subjective Data: MORALES LEE is a 46 year old Female who is Hospital Day # 15 and POD #8 for posterior L4-L5 decompression;posterior L4-L5 arthrodesis. Objective Data: Objective Information: T PRBPSpO2 Value36.32743968/7393% Date/Time09/29 16: 16: 16: 16: 16:00 Range(36C - 36.7C ) (67 - 86 ) (17 - 20 ) (94 - 153 )/ (15 - 113 ) (93% - 98% ) Pain reported at 09/29 9:56: 5 = Moderate ---- Intake and Output ----- Mn/Dy/Year TimeIntakeOutputNet Sep 29, 2021 2:00 [id number] Sep 29, 2021 6:00 am000 Sep 28, 2021 10:00 [id number] The Intake and Output Totals for the [...] the note. I personally evaluated the patient [id number] Electronic Signatures: Lex Frederick) (Signed 30-Sep-2021 11:18) Authored: Note Completion Co-Signer: Service, Subjective Data, Objective Data, Assessment and Plan, Note Completion Jaya Mosquera (Resident)) (Signed 30-Sep-2021 03:18) Authored: Service, Subjective Data, Objective Data, Assessment and Plan, Note Completion Last Updated: 30-Sep-2021 11:18 by Lex Frederick) [facility] Rehab Krha-zu-qhxlmtaky - co -tx /c OT to address multidiscipon 09-30-2021 Rehab Jejg-jx-erzlmheeh - co-tx /c OT to address multidiscip Rehab: Info: Disciplinephysical recreation therapy teacher Mode of Treatmentphysical therapy; co-treatment; co-tx /c OT to address multidisciplinary functional needs and maximize pt's safety. Time IN12:15 Time OUT12:55 Total Treatment [id number] Patient in ... at end of sessionbed, 3 railings up; alarm off; not on at start of visit Communicated with ... at end of sessionbedside nurse Patient Effortgood Symptoms Noted During/After Treatmentfatigue Treatment Considerations/CommentsExte nsive discussion /c amongst DIRECTOR LOSS PREVENTION, OT, and pt regarding her current physical [...] rolling right; rolling left; scooting/bridging Roll Left Lamar (Bed Mobility)moderate assist (50% patient effort); 1 person assist; nonverbal cues (demo/gesture); verbal cues Roll Right Lamar (Bed Mobility)moderate assist (50% patient effort); 1 person assist; nonverbal cues (demo/gesture); verbal cues Scoot/Bridge Lamar (Bed Mobility)maximum assist (25% patient effort); 2 person assist; nonverbal cues (demo/gesture); verbal cues Lioazm-vo-Spk Lamar (Bed Mobility)maximum assist (25% patient effort); 2 person assist; nonverbal cues (demo/gesture); verbal cues Ehb-bf-Rmlnba Lamar (Bed Mobility)maximum assist (25% patient effort); 2 [...] Pt repositioned back to sitting EOB. Sit-Stand Lamar (Transfers)dependent (less than 25% patient effort) Sit-Stand Assistive Device (Transfers)mechanical lift/aid Stand-Sit Lamar (Transfers)dependent (less than 25% patient effort) Stand-Sit [...] Score8 Short Term Goals: Bed Mobility: Date [id number] Bed Mobility: Lamar Level Goalminimum assist (75% patients effort) Bed Mobility: Physical Assist Level Goal1-person assist, verbal cues Bed Mobility: Time Frame for Goal2 wks Transfer: Established [id number] Transfer: Transfer Type Wnaofmq-as-znroc/chair-to-b ed; ebh-rz-lules/tqzup-bh-tst Transfer: Lamar Level Goalmoderate assist (50% patients effort) Transfer: Physical Assist Level Goal1-person assist; verbal cues Transfer: Assistive Device Goalrolling walker Transfer: Time Frame for Goal2 wks Gait: Established [id number] Gait: Lamar Level Goalmoderate assist (50% patients (more content not included)... Normal [facility] Rehab Note-occupational therapy technician apy - co-tx with PT to maximizeon 09-30-2021 Rehab Note-occupational therapy - co-tx with PT to maximize Rehab: Info: Disciplineoccupational therapist Mode of Treatmentoccupational therapy; co-tx with PT to maximize pt's mobility and safety. Time IN12:15 Time OUT12:55 Total Treatment [id number] Patient in ... at end of sessionbed, [...] ling right; rolling left; scooting/bridging Roll Left Lamar (Bed Mobility)moderate assist (50% patient effort); 1 person assist; nonverbal cues (demo/gesture); verbal cues Roll Right Lamar (Bed Mobility)moderate assist (50% patient effort); 1 person assist; nonverbal cues (demo/gesture); verbal cues Scoot/Bridge Lamar (Bed Mobility)maximum assist (25% patient effort); 2 [...] lower body dressing; upper body dressing; bathing Lamar Level (Bathing)set up; verbal cues; moderate assist (50% patient effort); 1 person assist Comment (Bathing)anticipated due to impaired balance, strength, and pain. Lamar Level (Upper Body Dressing)set up; verbal cues; moderate assist (50% patient effort) Comment (Upper Body Dressing)anticipated due to impaired balance, strength, and pain. Lamar Level (Lower Body Dressing)don; socks; dependent (less than 25% patient effort) Position (Lower Body Dressing)supine Lamar Level (Grooming)modified independence Comment (Grooming)Pt observed applying Orajel to gums, able to manage packaging, cap un/screwing, and application. Lamar Level (Feeding)modified independence Comment (Feeding)Pt able to retrieve OJ cup from tray table at R side, bring to mouth, and drink appropriately. Lamar Level (Toileting)dependent (less than 25% patient effort); [...] Score15 Short Term Goals: Bed Mobility: Date [id number] Bed Mobility: Lamar Level Goalcontact guard Bed Mobility: Physical Assist Level Goalset-up, verbal cues Bed Mobility: Time Frame for Goal2 wks Transfer: Established Transfer: Transfer Type Uzlswwl-ui-pholo/chair-to-b ed; vcf-go-hkorw/xqxqn-je-wsw; toilet Transfer: Lamar Level Goalminimum assist (75% patients effort) Transfer: Physical Assist Level Goalset-up; verbal cues; 1-person assist Transfer: Assistive Device GoalLRD Transfer: Time Frame for Goal2 wks Balance: Established Balance: Goal DetailsPt will perform ADL while reaching outside MADDIE and returning self to midline >8 minutes with set-up assist, SBA, and minimal verbal cues for safety. Enrique (more content not included)... Normal [facility] Daily Progress Note-Nuha stearns 09-29-2021 Daily Progress Note-Neurosurgery Service: Neurosurgery Subjective Data: MORALES LEE is a 46 year old Female who is Hospital Day # 14 and POD #7 for posterior L4-L5 decompression;posterior L4-L5 arthrodesis. Objective Data: Objective Information: T PRBPSpO2 [id number]/6993% Date/Time09/28 4: 8: 8: 8: 8:00 Range(36C [...] 2021 6:00 am000 Sep 27, 2021 10:00 [id number] Sep 27, 2021 2:00 [id number] The Intake and Output Totals for the last 24 hours are: IntakeOutputNet [id number] Physical Exam by System: Neurological: A&Ox3 RUE [...] physical exam or was physically present for schofiedl and critical portions performed by the resident/fellow. I reviewed the resident/fellows documentation and discussed the patient with the resident/fellow. I agree with the resident/fellows medical decision making as documented in the note. I personally evaluated the patient [id number] Electronic Signatures: Lex Frederick) (Signed 29-Sep-2021 09:23) Authored: Note Completion Co-Signer: Service, Subjective Data, Objective Data, Assessment and Plan, Note Completion Jaya Mosquera (Resident)) (Signed 29-Sep-2021 03:01) Authored: Service, Subjective Data, Objective Data, Assessment and Plan, Note Completion Last Updated: 29-Sep-2021 09:23 by Lex Frederick) [facility] Rehab Aewe-re-krggezeja - co -tx /c OT to address multidiscipon 09-29-2021 Rehab Lsdz-em-eojsxdrii - co-tx /c OT to address multidiscip Rehab: Info: Disciplinephysical recreation therapy teacher Mode of Treatmentphysical therapy; co-treatment; co-tx /c OT to address multidisciplinary functional needs and maximize pt's safety. Time IN14:30 Time OUT15:40 Total Treatment [id number] Patient in ... at end of sessionbed, [...] to sit; sit to supine Roll Left Lamar (Bed Mobility)maximum assist (25% patient effort); 2 person assist; verbal cues; nonverbal cues (demo/gesture) Roll Right Lamar (Bed Mobility)maximum assist (25% patient effort); 2 person assist; verbal cues; nonverbal cues (demo/gesture) Scoot/Bridge Lamar (Bed Mobility)maximum assist (25% patient effort); 2 person assist; nonverbal cues (demo/gesture); verbal cues Htgkna-ig-Ebi Lamar (Bed Mobility)maximum assist (25% patient effort); 2 person assist; nonverbal cues (demo/gesture); verbal cues Oby-sr-Nogwks Lamar (Bed Mobility)verbal cues; nonverbal cues (demo/gesture); maximum [...] Pt repositioned back to sitting EOB. Sit-Stand Lamar (Transfers)dependent (less than 25% patient effort) Sit-Stand Assistive Device (Transfers)mechanical lift/aid Stand-Sit Lamar (Transfers)dependent (less than 25% patient effort) Stand-Sit [...] Score8 Short Term Goals: Bed Mobility: Date [id number] Bed Mobility: Lamar Level Goalminimum assist (75% patients effort) Bed Mobility: Physical Assist Level Goal1-person assist, verbal cues Bed Mobility: Time Frame for Goal2 wks Transfer: Established [id number] Transfer: Transfer Type Dcnmkcl-yt-vgcxx/chair-to-b ed; bqo-bn-gbmzu/yisbl-wc-mit Transfer: Lamar Level Goalmoderate assist (50% patients effort) Transfer: Physical Assist Level Goal1-person assist; verbal cues Transfer: Assistive Device Goalrolling walker Transfer: Time Frame for Goal2 wks Gait: Established Gait: Lamar Level Goalmoderate assist (50% patients effort) Gait: [...] Normal [facility] Rehab Note-occupational therapy technician apy - co-tx with PT to maximizeon 09-29-2021 Rehab Note-occupational therapy - co-tx with PT to maximize Rehab: Info: Disciplineoccupational therapist Mode of Treatmentoccupational therapy; co-tx with PT to maximize pt's mobility and safety. Time IN14:30 Time OUT15:40 Total Treatment [id number] Patient in ... at end of sessionbed, [...] to sit; sit to supine Roll Left Lamar (Bed Mobility)maximum assist (25% patient effort); 2 person assist; verbal cues; nonverbal cues (demo/gesture); multiple rolls to adjust harness Roll Right Lamar (Bed Mobility)maximum assist (25% patient effort); 2 person assist; verbal cues; nonverbal cues (demo/gesture); multiple rolls to adjust harness Scoot/Bridge Lamar (Bed Mobility)maximum assist (25% patient effort); 2 person assist; nonverbal cues (demo/gesture); verbal cues; boost HOB Mljttd-bo-Tfk Lamar (Bed Mobility)maximum assist (25% patient effort); 2 person assist; nonverbal cues (demo/gesture); verbal cues Fwe-us-Yxlftz Lamar (Bed Mobility)verbal cues; nonverbal cues (demo/gesture); maximum assist (25% patient effort); 2 person assist Assistive Device (Bed Mobility)draw sheet; bed rails Transfer Assessment/Interventionssit to stand transfer; stand to sit transfer Sit-Stand Lamar (Transfers)dependent (less than 25% patient effort) Sit-Stand Assistive Device (Transfers)mechanical lift/aid; Faye Plus Stand-Sit Lamar (Transfers)dependent (less than 25% patient effort) Stand-Sit Assistive Device (Transfers)mechanical lift/aid; Faye Plus Safety Issues Impacting Function (Mobility)awareness of need for assistance; insight into deficits/self awareness Impairments Impacting Function (Mobility)endurance/activit y tolerance; strength; balance; coordination; postural/trunk control ADL: BADL Assessment/Interventiontoil eting; feeding; grooming; lower body dressing; upper body dressing; bathing Lamar Level (Bathing)set up; verbal cues; moderate assist (50% patient effort); 1 person assist Comment (Bathing)anticipated due to impaired balance, strength, and pain. Lamar Level (Upper Body Dressing)set up; verbal cues; moderate assist (50% patient effort) Comment (Upper Body Dressing)anticipated due to impaired balance, strength, and pain. Lamar Level (Lower Body Dressing)don; socks; dependent (less than 25% patient effort) Position (Lower Body Dressing)supine Lamar Level (Grooming)set up; contact guard Comment (Grooming)anticipated due to impaired balance, strength, and pain. Lamar Level (Feeding)set up; modified independence Comment (Feeding)anticipated Lamar Level (Toileting)dependent (less than 25% patient effort); purewick Impairments, BADL Safety/Performancebalance; cognition; endurance/activity tolerance; strength; trunk/postural control Cognitive Impairments, BADL Safety/Performanceawareness , need for assistance; insight into deficits/self awareness; judgment; problem solving/reasoning Motor: Sitting, Static (Balance)good balance SBA Sitting, Dynamic (Balance)fair balance CGA Uru-nq-Ryvjk (Balance)poor balance Total A via Faye Plus [...] oil enema alternating with tap water enema [id number] - Bisacodyl suppository QHS Daily - Monitor [...] note 45 minutes; Electronic Signatures: Concetta Shi (WINDOW SYSTEMS ADMINISTRATOR-WIRELESS MANAGER) (Signed 28-Sep-2021 14:31) Authored: Clinical Event Note Last Updated: 28-Sep-2021 14:31 by Concetta Shi (WINDOW SYSTEMS ADMINISTRATOR-WIRELESS MANAGER) [facility] Daily Progress Note-Gastroen terologyon 09-28-2021 Daily Progress Note-Gastroenterolog y Service: Gastroenterology Subjective Data: MORALES LEE is a 46 year old Female who is Hospital Day # 14 and POD #7 for posterior L4-L5 decompression;posterior L4-L5 arthrodesis. No events overnight. Had one bowel movement this am. Otherwise no complaints. Objective Data: Objective Information: T PRBPSpO2 [id number]/6993% Date/Time09/28 4: 8: 8: 8: 8:00 Range(36C [...] 2021 6:00 am000 Sep 27, 2021 10:00 [id number] Sep 27, 2021 2:00 [id number] The Intake and Output Totals for the last 24 hours are: IntakeOutputNet [id number] Physical Exam by System: Constitutional: Constitutional: A&Ox3, [...] Normal [facility] Daily Progress Note-Neurosur leonidasgaurang 09-28-2021 Daily Progress Note-Neurosurgery Service: Neurosurgery Subjective Data: MORALES LEE is a 46 year old Female who is Hospital Day # 14 and POD #7 for posterior L4-L5 decompression;posterior L4-L5 arthrodesis. Objective Data: Objective Information: T PRBPSpO2 [id number]/4893% Date/Time09/28 4: 4: 4: 4: 4:00 Range(36C - 36.6C ) (72 - 87 ) (15 - 22 ) (92 - 153 )/ (48 - 113 ) (92% - 99% ) As of 27-Sep-2021 22:00:00, patient is on 2 L/min of oxygen via nasal cannula. Pain reported at 09/27 22:00: 0 = None ---- Intake and Output ----- Mn/Dy/Year TimeIntakeOutputNet Sep 26, 2021 10:00 [id number] Sep 26, 2021 2:00 [id number] The Intake and Output Totals for the last 24 hours are: IntakeOutputNet [id number] Physical Exam by System: Neurological: A&Ox3 RUE [...] the note. I personally evaluated the patient [id number] Electronic Signatures: Fidel Maciel (Resident)) (Signed 28-Sep-2021 [...] on above: Performed By: #### R ENAL ####[id number] [place] [address] Anion gap [Moles/Vol] 17 mmol/L Normal 10 - 20 [facility] Comment on above: Performed By: #### R ENAL ####[id number] [place] [address] Calcium [Mass/Vol] 8.4 mg/dL Low 8.6 - 10.6 [facility] Comment on above: Performed By: #### R ENAL ####[id number] [place] [address] Chloride [Moles/Vol] 102 mmol/L Normal 98 - 107 [facility] Comment on above: Performed By: #### R ENAL ####[id number] [place] [address] Creatinine [Mass/Vol] 0.47 mg/dL Low 0.50 - 1.05 [facility] Comment on above: Performed By: #### R ENAL ####[id number] [place] [address] eGFR FEMALE >90 Normal >90 [facility] Comment on above: Result Comment: CALC ULATIONS OF ESTIMATED GFR ARE PERFORMED USING THE 2020 CKD-EPI STUDY REFIT EQUATION WITHOUT THE RACE VARIABLE FOR THE IDMS-TRACEABLE CREATININE METHODS. https://jasn.asnjournals.org/content/early//ASN.2811874 988 Performed By: #### R ENAL ####[id number] [place] [address] Glucose [Mass/Vol] 74 mg/dL Normal 74 - 99 [facility] Comment on above: Performed By: #### R ENAL ####[id number] [place] [address] HCO3 (Bld) [Moles/Vol] 27 mmol/L Normal 21 - 32 [facility] Comment on above: Performed By: #### R ENAL ####[id number] [place] [address] Phosphate [Mass/Vol] 3.4 mg/dL Normal 2.5 - 4.9 [facility] Comment on above: Result Comment: The performance characteristics of phosphorus testing in heparinized plasma have been validated by the individual laboratory site where testing is performed. Testing on heparinized plasma is not approved by the FDA; however, such approval is not necessary. Performed By: #### R ENAL ####[id number] [place] [address] Potassium [Moles/Vol] 3.7 mmol/L Normal 3.5 - 5.3 [facility] Comment on above: Performed By: #### R ENAL ####[id number] [place] [address] Sodium [Moles/Vol] 142 mmol/L Normal 136 - 145 [facility] Comment on above: Performed By: #### R ENAL ####[id number] [place] [address] Urea nitrogen [Mass/Vol] 6 mg/dL Normal 6 - 23 [facility] Comment on above: Performed By: #### R ENAL ####[id number] [place] [address] Radiologyon 09-28-2021 XR Abdomen AP Normal [facility]-Gastroen terology-[place] [facility] Work Phone: Rehab Note-attemptedon 09-28 Rehab Note-attempted Rehab: Info: Disciplinephysical recreation therapy teacher Mode of Treatmentattempted Time IN15:30 Reason Treatment Not Performedpatient/family declined treatment, not feeling well Treatment Considerations/CommentsPt declined therapy at this time 2* increased fatigue, nausea. Pt stated NO! NO! NO! upon therapists arrival, even /c increased encouragement. Will reattempt as schedule allows. Short Term Goals: Bed Mobility: Date [id number] Bed Mobility: Lamar Level Goalminimum assist (75% patients effort) Bed Mobility: Physical Assist Level Goal1-person assist, verbal cues Bed Mobility: Time Frame for Goal2 wks Transfer: Established [id number]-0277 Transfer: Transfer Type Uvfhmtl-qw-iheqc/chair-to-b ed; pvz-ox-ybvyy/etfry-yg-yee Transfer: Lamar Level Goalmoderate assist (50% patients effort) Transfer: Physical Assist Level Goal1-person assist; verbal cues Transfer: Assistive Device Goalrolling walker Transfer: Time Frame for Goal2 wks Gait: Established [id number] Gait: Lamar Level Goalmoderate assist (50% patients effort) Gait: Physical Assist Level1-person assist; verbal cues Gait: Assistive Device Goalrolling walker Gait: Distance Goal15 feet Gait: Time Frame for Goal2 wks Balance: Established [id number]-5012 Balance: Goal DetailsSitting EOB 20 minutes with 0-1 UE support, SBA for static sitting, CGA for dynamic. Standing 1 minute with FWW and CGA Electronic Signatures: Yosi Campbell (DIRECTOR LOSS PREVENTION) (Signed 28-Sep-2021 15:32) Entered: Short Term Goals, [...] [facility] [facility] Work Phone: [phone] Chloride [Moles/Vol] 102 mmol/L 98 - 107 [facility]-G astroen terology-[place] 6 I Work Phone: [phone] CO2 [Moles/Vol] 27 mmol/L 21 - 32 [facility] en [facility] [facility] I Work Phone: [phone] Creatinine [Mass/Vol] 0.47 mg/dL below low threshold See Below [facility] [facility] Work Phone: [phone] Comment on above: Reference Range: 0.5 0 - 1.05 Glucose [Mass/Vol] 74 mg/dL 74 - 99 MG-Gas troen terology-[place] 6 I Work Phone: Phosphate [Mass/Vol] 3.4 mg/dL 2.5 - 4.9 MG-G astroen terology-[place] 6 I Work Phone: [phone] Comment on above: The performance arsalan acteristics [...] RACE VARIABLE FOR THE IDMS-TRACEABLE CREATININE METHODS.https://jasn.asnjournals.org/content/early//ASN .7896680844 TH ABDOMEN AP VIEWon 022 ABDOMEN AP VIEW Patient Name: MORALES LEE STUDY: ABDOMEN AP VIEW; 09/28/2021 1:22 pm INDICATION: Abd. dist. . COMPARISON: 09/27/2021 abdominal radiograph. ACCESSION NUMBER(S): [id number] ORDERING CLINICIAN: CONCETTA SHI FINDINGS: Two AP [...] as stated. This study was interpreted at [facility], [place], [place]. 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 Has been on scheduled bowel regimen with [...] penicillin: Unknown Objective: Objective Information: T PRBPSpO2 [id number]/08562% Date/Time09/27 4: 4: 4: 4:00 Range (76 [...] included)... Normal [facility] Daily Progress Note-Neurosjuyd stearns 09-27-2021 Daily Progress Note-Neurosurgery Service: Neurosurgery Subjective Data: MORALES LEE is a 46 year old Female who is Hospital Day # 13 and POD #6 for posterior L4-L5 decompression;posterior L4-L5 arthrodesis. Objective Data: Objective Information: T PRBPSpO2 [id number]/71920% Date/Time09/26 11:0809/27 4: 4: 4: 4:00 Range(37C [...] 2021 6:00 am000 Sep 26, 2021 10:00 [id number] Sep 26, 2021 2:00 [id number] The Intake and Output Totals for the last 24 hours are: IntakeOutputNet [id number] Physical Exam by System: Neurological: A&Ox3 RUE [...] the note. I personally evaluated the patient [id number] Electronic Signatures: Chaparro Umana (Resident)) (Signed 27-Sep-2021 [...] above: Performed By: #### C BC #### [facility] [address] [place] [address] Magnesium, Serumon Magnesium [Mass/Vol] 1.80 mg/dL See Below [facility] Work Phone: Comment on above: Reference Range: 1.6 0 - 2.40 RENAL FUNCTION PANELon 09-27 Albumin [Mass/Vol] 3.3 g/dL Low 3.4 - 5.0 [facility] Comment on above: Performed By: #### R ENAL #### [facility] [address] [place] [address] Anion gap [Moles/Vol] 17 mmol/L Normal 10 - 20 [facility] Comment on above: Performed By: #### R ENAL #### [facility] [address] [place] [address] Calcium [Mass/Vol] 8.5 mg/dL Low 8.6 - 10.6 [facility] Comment on above: Performed By: #### R ENAL #### [facility] [address] [place] [address] Chloride [Moles/Vol] 98 mmol/L Normal 98 - 107 [facility] Comment on above: Performed By: #### R ENAL #### [facility] [address] [place] [address] Creatinine [Mass/Vol] 0.44 mg/dL Low 0.50 - 1.05 [facility] Comment on above: Performed By: #### R ENAL #### [facility] [address] [place] [address] eGFR FEMALE >90 Normal >90 [facility] Comment on above: Result Comment: CALC ULATIONS OF ESTIMATED GFR ARE PERFORMED USING THE 2020 CKD-EPI STUDY REFIT EQUATION WITHOUT THE RACE VARIABLE FOR THE IDMS-TRACEABLE CREATININE METHODS. https://jasn.asnjournals.org/content/early//ASN.2713981 988 Performed By: #### R ENAL #### [facility] [address] [place] [address] Glucose [Mass/Vol] 91 mg/dL Normal 74 - 99 [facility] Comment on above: Performed By: #### R ENAL #### [facility] [address] [place] [address] HCO3 (Bld) [Moles/Vol] 26 mmol/L Normal 21 - 32 [facility] Comment on above: Performed By: #### R ENAL #### [facility] [address] [place] [address] Phosphate [Mass/Vol] 4.0 mg/dL Normal 2.5 - 4.9 [facility] Comment on above: Result Comment: The performance characteristics of phosphorus testing in heparinized plasma have been validated by the individual laboratory site where testing is performed. Testing on heparinized plasma is not approved by the FDA; however, such approval is not necessary. Performed By: #### R ENAL #### [facility] [address] [place] [address] Potassium [Moles/Vol] 4.1 mmol/L Normal 3.5 - 5.3 [facility] Comment on above: Performed By: #### R ENAL #### [facility] [address] [place] [address] Sodium [Moles/Vol] 137 mmol/L Normal 136 - 145 [facility] Comment on above: Performed By: #### R ENAL #### [facility] [address] [place] [address] Urea nitrogen [Mass/Vol] 6 mg/dL Normal 6 - 23 [facility] Comment on above: Performed By: #### R ENAL #### [facility] [address] [place] [address] Radiologyon 09-27-2021 XR Abdomen AP Normal [facility] [facility] Work Phone: Renal Function Panelon 09-27 Albumin [...] RACE VARIABLE FOR THE IDMS-TRACEABLE CREATININE METHODS.https://jasn.asnjournals.org/content/early/ASN .7848064327 ABDOMEN AP VIEWon 022 ABDOMEN AP VIEW Patient Name: MORALES LEE STUDY: ABDOMEN AP VIEW; 09/27/2021 2:33 am INDICATION: vomiting, constipation . COMPARISON: None. ACCESSION NUMBER(S): [id number] ORDERING CLINICIAN: FIDEL MACIEL FINDINGS: 2 AP [...] as stated. This study was interpreted at [place], [place]. Electronically signed by: DWIGHT MOY MD [facility] Daily Progress Note-Neurosjudy stearns 09-26-2021 Daily Progress Note-Neurosurgery Service: Neurosurgery Subjective Data: MORALES LEE is a 46 year old Female who is Hospital Day # 12 and POD #5 for posterior L4-L5 decompression;posterior L4-L5 arthrodesis. Objective Data: Objective Information: T PRBPSpO2 [id number]/8299% Date/Time09/25 17: 12:001 17: 17:08 Range (68 - 98 ) (21 - 23 ) (118 - 136 )/ (69 - 82 ) (92% - 99% ) Pain reported at 09/26 3:00: sleeping ---- Intake and Output ----- Mn/Dy/Year TimeIntakeOutputNet Sep 24, 2021 10:00 [id number] Sep 24, 2021 2:00 [id number] Sep 24, 2021 6:00 [id number] The Intake and Output Totals for the last 24 hours are: IntakeOutputNet [id number] Physical Exam by System: Neurological: A&Ox3 RUE [...] the note. I personally evaluated the patient [id number] Electronic Signatures: Jaya Mosquera (Resident)) (Signed 26-Sep-2021 [...] wound check 10/07/21 at 10:15 am, [facility] 5th floor - F/U with [...] plan of care. Electronic Signatures: Concetta Shi (WINDOW SYSTEMS ADMINISTRATOR-WIRELESS MANAGER) (Signed 25-Sep-2021 13:30) Authored: Clinical Event Note Last Updated: 25-Sep-2021 13:30 by Concetta Shi (WINDOW SYSTEMS ADMINISTRATOR-WIRELESS MANAGER) [facility] Daily Progress Note-Nuha stearns 09-25-2021 Daily Progress Note-Neurosurgery Service: Neurosurgery Subjective Data: MORALES LEE is a 46 year old Female who is Hospital Day # 11 and POD #4 for posterior L4-L5 decompression;posterior L4-L5 arthrodesis. Objective Data: Objective Information: T PRBPSpO2 [id number]/6799% Date/Time09/24 16: 16: 16: 16:00 Range (68 - 78 ) (18 - 19 ) (102 - 117 )/ (57 - 73 ) (95% - 99% ) As of 24-Sep-2021 21:40:00, patient is on 2 L/min of oxygen via nasal cannula. Pain reported at 09/24 21:40: 8 = Severe ---- Intake and Output ----- Mn/Dy/Year TimeIntakeOutputNet Sep 23, 2021 10:00 [id number] Sep 23, 2021 6:00 [id number] The Intake and Output Totals for the last 24 hours are: IntakeOutputNet [id number] Physical Exam by System: Neurological: A&Ox3 RUE [...] the note. I personally evaluated the patient [id number] Electronic Signatures: Lex Frederick () (Signed 25-Sep-2021 11:57) Authored: Note Completion Co-Signer: Service, Subjective Data, Objective Data, Assessment and Plan, Note Completion Alfredo Hendrickson (Resident)) (Signed 25-Sep-2021 05:56) Authored: Service, Subjective Data, Objective Data, Assessment and Plan, Note Completion Last Updated: 25-Sep-2021 11:57 by Lex Frederick) [facility] Rehab Lddr-qc-yickuiuoa - co -tx /c OT to address multidiscipon 09-25-2021 Rehab Jscl-my-snegfknkp - co-tx /c OT to address multidiscip Rehab: Info: Disciplinephysical recreation therapy teacher Mode of Treatmentphysical therapy; co-treatment; co-tx /c OT to address multidisciplinary functional needs and maximize pt's safety. Time IN15:05 Time OUT15:59 Total Treatment [id number] Patient in ... at end of sessionbed, [...] scooting/bridging; rolling right; rolling left Roll Left Lamar (Bed Mobility)maximum assist (25% patient effort); 2 person assist; verbal cues; nonverbal cues (demo/gesture) Roll Right Lamar (Bed Mobility)maximum assist (25% patient effort); 2 person assist; verbal cues; nonverbal cues (demo/gesture) Scoot/Bridge Lamar (Bed Mobility)maximum assist (25% patient effort); 2 person assist; nonverbal cues (demo/gesture); verbal cues Hvgwre-kc-Mka Lamar (Bed Mobility)maximum assist (25% patient effort); 2 person assist; verbal cues; nonverbal cues (demo/gesture) Has-sm-Jbrryk Lamar (Bed Mobility)maximum assist (25% patient effort); 2 [...] unable to get to full standing. Sit-Stand Lamar (Transfers)maximum assist (25% patient effort); verbal cues; nonverbal cues (demo/gesture); 2-3 persona assist Sit-Stand Assistive Device (Transfers)walker, front-wheeled Stand-Sit Lamar (Transfers)maximum assist (25% patient effort); nonverbal cues [...] Score8 Short Term Goals: Bed Mobility: Date [id number]-9925 Bed Mobility: Lamar Level Goalminimum assist (75% patients effort) Bed Mobility: Physical Assist Level Goal1-person assist, verbal cues Bed Mobility: Time Frame for Goal2 wks Transfer: Established [id number]-0986 Transfer: Transfer Type Ffsyhmo-po-pdkok/chair-to-b ed; jlg-wd-izylg/ogdgz-ti-arm Transfer: Lamar Level Goalmoderate assist (50% patients effort) Transfer: Physical Assist Level Goal1-person assist; verbal cues Transfer: Assistive Device Goalrolling walker Transfer: Time Frame for Goal2 wks Gait: Established Gait: Lamar Level Goalmoderate assist (50% patients effort) Gait: [...] goals is gradual Electronic Signatures: Yosi Campbell (DIRECTOR LOSS PREVENTION) (Signed 25-Sep-2021 16:59) Entered: Outcome Summary, Short Term Goals, Sensory, TherEx, Outcomes Tools, Info, Mobility/Tone Authored: Short Term Goals, Outcome Summary, TherEx, Outcomes Tools, Info, Mobility/Tone, Sensory Boone Broussard (PT) (Signed 01-Oct-2021 09:01) Co-Signer: Outcome Summary, Short Term Goals, Sensory, TherEx (more content not included)... Normal [facility] Rehab Note-occupational therapy technician apy - Partial co-tx with PT to tue09-25-2021 Rehab Note-occupational therapy - Partial co-tx with PT to Rehab: Info: Disciplineoccupational therapist Mode of Treatmentoccupational therapy; Partial co-tx with PT to maximize pt's mobility and safety. Time IN15:03 Time OUT15:56 Total Treatment Uighxvm20 Patient in ... at end of sessionbed, [...] sit to supine; rolling right Roll Left Lamar (Bed Mobility)Pt required assist to bend BLE at knees and to initiate turn at shoulders and hips, verbal cues for grasp on bed rail, technique, direction follow, and encouragement.; set up; verbal cues; maximum assist (25% patient effort); 2 person assist Roll Right Lamar (Bed Mobility)Pt required assist to bend BLE at knees and to initiate turn at shoulders and hips, verbal cues for grasp on bed rail, technique, direction follow, and encouragement.; set up; verbal cues; maximum assist (25% patient effort); 2 person assist Scoot/Bridge Lamar (Bed Mobility)boost HOB; set up; verbal cues; maximum assist (25% patient effort); 2 person assist Hfoshk-kq-Cez Lamar (Bed Mobility)HOB elevated; set up; verbal cues; maximum assist (25% patient effort); 2 person assist Hqp-db-Ixsicu Lamar (Bed Mobility)HOB elevated; set up; verbal cues; maximum assist (25% patient effort); 2 person assist Assistive Device (Bed Mobility)bed rails; draw sheet Transfer Assessment/Interventionssit to stand transfer Sit-Stand Lamar (Transfers)set up; verbal cues; maximum assist (25% patient effort); x 2-3 assist Safety Issues Impacting Function (Mobility)ability to follow commands; awareness of need for assistance; insight into deficits/self awareness; judgment; problem solving Impairments Impacting Function (Mobility)balance; cognition; endurance/activity tolerance; pain; strength; postural/trunk control ADL: BADL Assessment/Interventiontoil eting; feeding; grooming; lower body dressing; upper body dressing; bathing Lamar Level (Bathing)set up; verbal cues; moderate assist (50% patient effort); 1 person assist Comment (Bathing)anticipated due to impaired balance, strength, and pain. Lamar Level (Upper Body Dressing)set up; verbal cues; moderate assist (50% patient effort) Comment (Upper Body Dressing)anticipated due to impaired balance, strength, and pain. Lamar Level (Lower Body Dressing)don; socks; dependent (less than 25% patient effort) Position (Lower Body Dressing)supine Lamar Level (Grooming)set up; contact guard Comment (Grooming)anticipated due to impaired balance, strength, and pain. Lamar Level (Feeding)set up; modified independence Comment (Feeding)anticipated Lamar Level (Toileting)dependent (less than 25% patient effort); purewick Impairments, BADL Safety/Performancebalance; cognition; endurance/activity tolerance; strength; trunk/postural control Cognitive Impairments, BADL Safety/Performanceawareness , need for assistance; insight into deficits/self awareness; judgment; problem solving/reasoning Motor: Sitting, Static (Balance)good balance SBA Sitting, Dynamic (Balance)fair balance CGA Kci-su-Uemvj (Balance)poor balance Max A x 2-3 - [...] arthrodesis. Objective Data: Objective Information: T PRBPSpO2 [id number]/5499% Date/Time09/23 20:4809/23 20:4809/23 20:4809/23 20:4809/23 20:48 Range(35.5C - 36.1C ) (66 - 75 ) (16 - 19 ) (90 - 118 )/ (54 - 75 ) (98% - 99% ) As of 23-Sep-2021 22:43:00, patient is on 2 L/min of oxygen via nasal cannula. ---- Intake and Output ----- Mn/Dy/Year TimeIntakeOutputNet Sep 22, 2021 10:00 [id number] Sep 22, 2021 2:00 [id number] Sep 22, 2021 6:00 [id number] The Intake and Output Totals for the last 24 hours are: IntakeOutputNet [id number] Physical Exam by System: Neurological: A&Ox3 RUE [...] the note. I personally evaluated the patient [id number] Comments/ Additional Findings Doing well. Kyphotic posture [...] for ambulation and PT for now and buttermaker continuous churn if the weakness fails to improve over [...] above: Performed By: #### A FPA3 #### [facility] [address] [place] [address] Magnesium, Serumon Magnesium [Mass/Vol] 1.71 mg/dL See Below MG-G astroen terraiza-[facility] 6 [facility] Work Phone: Comment on above: Reference Range: 1.6 0 - 2.40 RENAL FUNCTION PANELon 09-24 Albumin [Mass/Vol] 2.6 g/dL Low 3.4 - 5.0 [facility] Comment on above: Performed By: #### R ENAL ####[id number] [place] [address] Anion gap [Moles/Vol] 10 mmol/L Normal 10 - 20 [facility] Comment on above: Performed By: #### R ENAL ####[id number] [place] [address] Calcium [Mass/Vol] 7.7 mg/dL Low 8.6 - 10.6 [facility] Comment on above: Performed By: #### R ENAL ####[id number] [place] [address] Chloride [Moles/Vol] 108 mmol/L High 98 - 107 [facility] Comment on above: Performed By: #### R ENAL ####[id number] [place] [address] Creatinine [Mass/Vol] 0.39 mg/dL Low 0.50 - 1.05 [facility] Comment on above: Performed By: #### R ENAL ####[id number] [place] [address] eGFR FEMALE >90 Normal >90 [facility] Comment on above: Result Comment: CALC ULATIONS OF ESTIMATED GFR ARE PERFORMED USING THE 2020 CKD-EPI STUDY REFIT EQUATION WITHOUT THE RACE VARIABLE FOR THE IDMS-TRACEABLE CREATININE METHODS. https://jasn.asnjournals.org/content/early/ASN.6288393 988 Performed By: #### R ENAL ####[id number] [place] [address] Glucose [Mass/Vol] 92 mg/dL Normal 74 - 99 [facility] Comment on above: Performed By: #### R ENAL ####[id number] [place] [address] HCO3 (Bld) [Moles/Vol] 29 mmol/L Normal 21 - 32 [facility] Comment on above: Performed By: #### R ENAL ####[id number] [place] [address] Phosphate [Mass/Vol] 3.3 mg/dL Normal 2.5 - 4.9 [facility] Comment on above: Result Comment: The performance characteristics of phosphorus testing in heparinized plasma have been validated by the individual laboratory site where testing is performed. Testing on heparinized plasma is not approved by the FDA; however, such approval is not necessary. Performed By: #### R ENAL ####[id number] [place] [address] Potassium [Moles/Vol] 3.9 mmol/L Normal 3.5 - 5.3 [facility] Comment on above: Performed By: #### R ENAL ####[id number] [place] [address] Sodium [Moles/Vol] 143 mmol/L Normal 136 - 145 [facility] Comment on above: Performed By: #### R ENAL ####[id number] [place] [address] Urea nitrogen [Mass/Vol] 5 mg/dL Low 6 - 23 [facility] Comment on above: Performed By: #### R ENAL ####[id number] [place] [address] Rehab Note-attemptedon 09-24 Rehab Note-attempted Rehab: Info: [...] RACE VARIABLE FOR THE IDMS-TRACEABLE CREATININE METHODS.https://jasn.asnjournals.org/content//ASN .0190100143 CBCon 09-23-2021 Erythrocyte distribution width (RBC) [Ratio] 13.1 % Normal 11.5 - 14.5 [facility] Comment on above: Performed By: #### C BC ####[id number] [place] [address] Hematocrit (Bld) [Volume fraction] 30.5 % Low 36.0 - 46.0 [facility] Comment on above: Performed By: #### C BC ####[id number] [place] [address] Hemoglobin (Bld) [Mass/Vol] 9.9 g/dL Low 12.0 - 16.0 [facility] Comment on above: Performed By: #### C BC ####[id number] [place] [address] MCHC (RBC) [Mass/Vol] 32.5 g/dL Normal 32.0 - 36.0 [facility] Comment on above: Performed By: #### C BC ####[id number] [place] [address] MCV (RBC) [Entitic vol] 92 fL Normal 80 - 100 [facility] Comment on above: Performed By: #### C BC ####[id number] [place] [address] NUCLEATED RBC 0.0 /100 WBC Normal 0.0-0.0 [facility] Comment on above: Performed By: #### C BC ####[id number] [place] [address] Platelets (Bld) [#/Vol] 244 10*3/uL Normal 150 - 450 [facility] Comment on above: Performed By: #### C BC ####[id number] [place] [address] RBC 3.33 x10E12/L Low 4.00 - 5.20 [facility] Comment on above: Performed By: #### C BC ####[id number] [place] [address] WBC (Bld) [#/Vol] 8.6 10*3/uL Normal 4.4 - 11.3 [facility] Comment on above: Performed By: #### C BC ####[id number] [place] [address] CBC AND DIFFERENTIALon 09-23 % AUTOMATED IMMATURE GRAN 0.4 % Normal 0.0 - 0.9 [facility] Comment on above: Result Comment: Jaleesa ture Granulocyte Count (IG) includes promyelocytes, myelocytes and metamyelocytes but does not include bands. Percent differential counts (%) should be interpreted in the context of the absolute cell counts (cells/L). Performed By: #### C BC #### [facility] [id number] [place] [address] Basophils (Bld) [#/Vol] 0.03 10*3/uL Normal 0.00 - 0.10 [facility] Comment on above: Performed By: #### C BC #### [facility] [address] [place] [address] Basophils/100 WBC (Bld) 0.4 % Normal 0.0 - 2.0 [facility] Comment on above: Performed By: #### C BC #### [facility] [id number] [place] [address] Eosinophils (Bld) [#/Vol] 0.27 10*3/uL Normal 0.00 - 0.70 [facility] Comment on above: Performed By: #### C BC #### [facility] [address] [place] [address] Eosinophils/100 WBC (Bld) 3.6 % Normal 0.0 - 6.0 [facility] Comment on above: Performed By: #### C BC #### [facility] [address] [place] [address] Erythrocyte distribution width (RBC) [Ratio] 13.2 % Normal 11.5 - 14.5 [facility] Comment on above: Performed By: #### C BC #### [facility] [address] [place] [address] Hematocrit (Bld) [Volume fraction] 30.9 % Low 36.0 - 46.0 [facility] Comment on above: Performed By: #### C BC #### [facility] [address] [place] [address] Hemoglobin (Bld) [Mass/Vol] 10.4 g/dL Low 12.0 - 16.0 [facility] Comment on above: Performed By: #### C BC #### [facility] [address] [place] [address] Lymphocytes (Bld) [#/Vol] 2.41 10*3/uL Normal 1.20 - 4.80 [facility] Comment on above: Performed By: #### C BC #### [facility] [address] [place] [address] Lymphocytes/100 WBC (Bld) 31.9 % Normal 13.0 - 44.0 [facility] Comment on above: Performed By: #### C BC #### [facility] [address] [place] [address] MCHC (RBC) [Mass/Vol] 33.7 g/dL Normal 32.0 - 36.0 [facility] Comment on above: Performed By: #### C BC #### [facility] [address] [place] [address] MCV (RBC) [Entitic vol] 91 fL Normal 80 - 100 [facility] Comment on above: Performed By: #### C BC #### [facility] [address] [place] [address] Monocytes (Bld) [#/Vol] 0.49 10*3/uL Normal 0.10 - 1.00 [facility] Comment on above: Performed By: #### C BC #### [facility] [address] [place] [address] Monocytes/100 WBC (Bld) 6.5 % Normal 2.0 - 10.0 [facility] Comment on above: Performed By: #### C BC #### [facility] [address] [place] [address] Neutrophils (Bld) [#/Vol] 4.32 10*3/uL Normal 1.20 - 7.70 [facility] Comment on above: Performed By: #### C BC #### [facility] [address] [place] [address] Neutrophils/100 WBC (Bld) 57.2 % Normal 40.0 - 80.0 [facility] Comment on above: Performed By: #### C BC #### [facility] [address] [place] [address] NUCLEATED RBC 0.0 /100 WBC Normal 0.0-0.0 [facility] Comment on above: Performed By: #### C BC #### [facility] [address] [place] [address] Platelets (Bld) [#/Vol] 228 10*3/uL Normal 150 - 450 [facility] Comment on above: Performed By: #### C BC #### [facility] [address] [place] [address] RBC 3.39 x10E12/L Low 4.00 - 5.20 [facility] Comment on above: Performed By: #### C BC #### [facility] [address] [place] [address] WBC (Bld) [#/Vol] 7.6 10*3/uL Normal 4.4 - 11.3 [facility] Comment on above: Performed By: #### C BC #### [facility] [address] [place] [address] Complete Blood Count + Diffe rentialon 09-23-2021 [...] 6 [facility] Work Phone: Neutrophils/100 WBC (Bld) 57.2 % [...] [Mass/Vol] 1.68 mg/dL Normal 1.60 - 2.40 [facility] Comment on above: Performed By: #### C BC #### [facility] [address] [place] [address] Magnesium, Serumon Magnesium [Mass/Vol] 1.68 mg/dL See [...] (Advanced Practice Nurse) done by Ambrocio Izaguirre ([facility]) Discharge - Partial Reconciliation: 23-Sep-2021 13:21 by: Ambrocio Izaguirre ([facility]) Discharge - Partial Reconciliation: 24-Sep-2021 10:12 by: Ambrocio Izaguirre ([facility]) Discharge - Partial Reconciliation: 30-Sep-2021 14:12 by: Concetta Shi ([facility]) Discharge - Partial Reconciliation: 30-Sep-2021 14:14 by: Concetta Shi ([facility]) Discharge - Reconciliation: 30-Sep-2021 14:24 by: Concetta Shi ([facility]) Discharge - Reset to Incomplete: 02-Oct-2021 15:36 by: Ambrocio Izaguirre ([facility]) Discharge - Reconciliation: 02-Oct-2021 15:40 by: Ambrocio Izaguirre ([facility]) Discharge - Reset to Incomplete: 02-Oct-2021 15:57 by: Ambrocio Izaguirre ([facility]) Discharge - Reconciliation: 02-Oct-2021 15:58 by: Ambrocio Izaguirre ([facility]) Home Medications EnteredHOME MEDICATIONS AT [...] = 650 mg Oral Every 6 Hours 17-Benjamin-2022 15:40 Acetaminophen is not required Benzocaine 20% [...] PATIENT. Performed By: #### A FPA3 #### [facility] [address] [place] [address] RENAL FUNCTION PANELon 09-23 Albumin [Mass/Vol] 2.7 g/dL Low 3.4 - 5.0 [facility] Comment on above: Performed By: #### V FPA3 #### [facility] [address] [place] [address] Anion gap [Moles/Vol] 10 mmol/L Normal 10 - 20 [facility] Comment on above: Performed By: #### V FPA3 #### [facility] [address] [place] [address] Calcium [Mass/Vol] 7.9 mg/dL Low 8.6 - 10.6 [facility] Comment on above: Performed By: #### V FPA3 #### [facility] [address] [place] [address] Chloride [Moles/Vol] 108 mmol/L High 98 - 107 [facility] Comment on above: Performed By: #### V FPA3 #### [facility] [address] [place] [address] Creatinine [Mass/Vol] 0.39 mg/dL Low 0.50 - 1.05 [facility] Comment on above: Performed By: #### V FPA3 #### [facility] [address] [place] [address] eGFR FEMALE >90 Normal >90 [facility] Comment on above: Result Comment: CALC ULATIONS OF ESTIMATED GFR ARE PERFORMED USING THE 2020 CKD-EPI STUDY REFIT EQUATION WITHOUT THE RACE VARIABLE FOR THE IDMS-TRACEABLE CREATININE METHODS. https://jasn.asnjournals.org/content/early//ASN.1214055 988 Performed By: #### V FPA3 #### [facility] [address] [place] [address] Glucose [Mass/Vol] 87 mg/dL Normal 74 - 99 [facility] Comment on above: Performed By: #### V FPA3 #### [place] [address] [place] [address] HCO3 (Bld) [Moles/Vol] 29 mmol/L Normal 21 - 32 [facility] Comment on above: Performed By: #### V FPA3 #### [facility] [address] [place] [address] Phosphate [Mass/Vol] 2.7 mg/dL Normal 2.5 - 4.9 [facility] Comment on above: Result Comment: The performance characteristics of phosphorus testing in heparinized plasma have been validated by the individual laboratory site where testing is performed. Testing on heparinized plasma is not approved by the FDA; however, such approval is not necessary. Performed By: #### V FPA3 #### [facility] [address] [place] [address] Potassium [Moles/Vol] 3.6 mmol/L Normal 3.5 - 5.3 [facility] Comment on above: Performed By: #### V FPA3 #### [facility] [address] [place] [address] Sodium [Moles/Vol] 143 mmol/L Normal 136 - 145 [facility] Comment on above: Performed By: #### V FPA3 #### [facility] [address] [place] [address] Urea nitrogen [Mass/Vol] 9 mg/dL Normal 6 - 23 [facility] Comment on above: Performed By: #### V FPA3 #### [facility] [address] [place] [address] Rehab Note-individual therap yon 09-23-2021 Rehab Note-individual therapy Rehab: Info: Disciplinephysical therapist Mode of Treatmentphysical therapy; individual therapy Time IN14:50 Time OUT15:29 Total Treatment [id number] Patient in ... at end of sessionbed, [...] sit to supine; rolling right Roll Left Lamar (Bed Mobility)verbal cues; maximum assist (25% patient effort); 1 person assist Roll Right Lamar (Bed Mobility)maximum assist (25% patient effort); verbal cues; 1 person assist Scoot/Bridge Lamar (Bed Mobility)verbal cues; maximum assist (25% patient effort); 2 person assist; boost HOB Ywuade-gw-Qdf Lamar (Bed Mobility)verbal cues; maximum assist (25% patient effort); 1 person assist Gtu-il-Byrylk Lamar (Bed Mobility)set up; verbal cues; maximum assist (25% patient effort); 1 person assist Assistive Device (Bed Mobility)bed rails; draw sheet Transfer Assessment/Interventionssit to stand transfer; stand to sit transfer Sit-Stand Lamar (Transfers)2 person assist; moderate assist (50% patient effort) Sit-Stand Assistive Device (Transfers)B arm-in-arm assist Stand-Sit Lamar (Transfers)2 person assist; moderate assist (50% patient [...] RACE VARIABLE FOR THE IDMS-TRACEABLE CREATININE METHODS.https://jasn.asnjournals.org/content/early/ASN .0807415108 ANTIBODY IDENT.on 09-22-2021 ANTIBODY IDENT. Anti-E Normal [facility] Comment on above: Performed By: #### V FPA3 #### [facility] [address] [place] [address] CBCon 09-22-2021 Erythrocyte distribution width (RBC) [Ratio] 13.2 % Normal 11.5 - 14.5 [facility] Comment on above: Performed By: #### V FPA3 #### [facility] [address] [place] [address] Hematocrit (Bld) [Volume fraction] 30.6 % Low 36.0 - 46.0 [facility] Comment on above: Performed By: #### V FPA3 #### [facility] [address] [place] [address] Hemoglobin (Bld) [Mass/Vol] 10.2 g/dL Low 12.0 - 16.0 [facility] Comment on above: Performed By: #### V FPA3 #### [facility] [address] [place] [address] MCHC (RBC) [Mass/Vol] 33.3 g/dL Normal 32.0 - 36.0 [facility] Comment on above: Performed By: #### V FPA3 #### [facility] [address] [place] [address] MCV (RBC) [Entitic vol] 91 fL Normal 80 - 100 [facility] Comment on above: Performed By: #### V FPA3 #### [facility] [address] [place] [address] NUCLEATED RBC 0.0 /100 WBC Normal 0.0-0.0 [facility] Comment on above: Performed By: #### V FPA3 #### [facility] [address] [place] [address] Platelets (Bld) [#/Vol] 215 10*3/uL Normal 150 - 450 [facility] Comment on above: Performed By: #### V FPA3 #### [facility] [address] [place] [address] RBC 3.37 x10E12/L Low 4.00 - 5.20 [facility] Comment on above: Performed By: #### V FPA3 #### [facility] [address] [place] [address] WBC (Bld) [#/Vol] 9.6 10*3/uL Normal 4.4 - 11.3 [facility] Comment on above: Performed By: #### V FPA3 #### [facility] [address] [place] [address] CBC AND DIFFERENTIALon 09-22 % AUTOMATED IMMATURE GRAN 0.4 % Normal 0.0 - 0.9 [facility] Comment on above: Result Comment: Jaleesa ture Granulocyte Count (IG) includes promyelocytes, myelocytes and metamyelocytes but does not include bands. Percent differential counts (%) should be interpreted in the context of the absolute cell counts (cells/L). Performed By: #### C BCDF ####[id number] [place] [address] Basophils (Bld) [#/Vol] 0.02 10*3/uL Normal 0.00 - 0.10 [facility] Comment on above: Performed By: #### C BCDF ####[id number] [place] [address] Basophils/100 WBC (Bld) 0.2 % Normal 0.0 - 2.0 [facility] Comment on above: Performed By: #### C BCDF ####[id number] [place] [address] Eosinophils (Bld) [#/Vol] 0.04 10*3/uL Normal 0.00 - 0.70 [facility] Comment on above: Performed By: #### C BCDF ####[id number] [place] [address] Eosinophils/100 WBC (Bld) 0.4 % Normal 0.0 - 6.0 [facility] Comment on above: Performed By: #### C BCDF ####[id number] [place] [address] Erythrocyte distribution width (RBC) [Ratio] 13.2 % Normal 11.5 - 14.5 [facility] Comment on above: Performed By: #### C BCDF ####[id number] [place] [address] Hematocrit (Bld) [Volume fraction] 30.6 % Low 36.0 - 46.0 [facility] Comment on above: Performed By: #### C BCDF ####[id number] [place] [address] Hemoglobin (Bld) [Mass/Vol] 10.3 g/dL Low 12.0 - 16.0 [facility] Comment on above: Performed By: #### C BCDF ####[id number] [place] [address] Lymphocytes (Bld) [#/Vol] 2.19 10*3/uL Normal 1.20 - 4.80 [facility] Comment on above: Performed By: #### C BCDF ####[id number] [place] [address] Lymphocytes/100 WBC (Bld) 19.9 % Normal 13.0 - 44.0 [facility] Comment on above: Performed By: #### C BCDF ####[id number] [place] [address] MCHC (RBC) [Mass/Vol] 33.7 g/dL Normal 32.0 - 36.0 [facility] Comment on above: Performed By: #### C BCDF ####[id number] [place] [address] MCV (RBC) [Entitic vol] 90 fL Normal 80 - 100 [facility] Comment on above: Performed By: #### C BCDF ####[id number] [place] [address] Monocytes (Bld) [#/Vol] 0.71 10*3/uL Normal 0.10 - 1.00 [facility] Comment on above: Performed By: #### C BCDF ####[id number] [place] [address] Monocytes/100 WBC (Bld) 6.5 % Normal 2.0 - 10.0 [facility] Comment on above: Performed By: #### C BCDF ####[id number] [place] [address] Neutrophils (Bld) [#/Vol] 7.98 10*3/uL High 1.20 - 7.70 [facility] Comment on above: Performed By: #### C BCDF ####[id number] [place] [address] Neutrophils/100 WBC (Bld) 72.6 % Normal 40.0 - 80.0 [facility] Comment on above: Performed By: #### C BCDF ####[id number] [place] [address] NUCLEATED RBC 0.0 /100 WBC Normal 0.0-0.0 [facility] Comment on above: Performed By: #### C BCDF ####[id number] [place] [address] Platelets (Bld) [#/Vol] 242 10*3/uL Normal 150 - 450 [facility] Comment on above: Performed By: #### C BCDF ####[id number] [place] [address] RBC 3.39 x10E12/L Low 4.00 - 5.20 [facility] Comment on above: Performed By: #### C BCDF ####[id number] [place] [address] WBC (Bld) [#/Vol] 11.0 10*3/uL Normal 4.4 - 11.3 [facility] Comment on above: Performed By: #### C BCDF ####[id number] [place] [address] Complete Blood Count + Diffe vidya 09-22-2021 [...] + Differential 0.0 {/100_WBC} 0.0-0.0 [facility]-Gastroen terology-Rosendo gretaell 6 I Work Phone: Complete Blood Count [...] with at bedside. She is currently on PRIVATE BRANCH EXCHANGE INSTALLER for pain, and reports being tired this [...] this time. Objective: Objective Information: T PRBPSpO2 Value36.8582038/5792% Date/Time09/22 0:001/ 8:001 8:001/ 8:001/18 8:00 Range(36.3C [...] Fair. Medications: Continuous Medications ----- 1. HYDROmorphone PR[employer] BR[employer]CH EXCHANGE INSTALLER 25 mg/ NaCL 0.9% 50 mL: 2.6 mg/hr IV PRIVATE BR[employer]CH EXCHANGE INSTALLER 2. Sodium Chloride 0.9% Infusion: 1000 mL [...] arthrodesis. Objective Data: Objective Information: T PRBPSpO2 Value36.2435742/5895% Date/Time09/22 0:001 0:001 0:001 0:001 0:00 Range(36.2C - 36.8C ) (82 - 109 ) (12 - 20 ) (85 - 132 )/ (49 - 89 ) (94% - 100% ) As of 21-Sep-2021 17:00:00, patient is on 4 L/min of oxygen via nasal cannula. Pain reported at 09/21 16:33: 5 = Moderate ---- Intake and Output ----- Mn/Dy/Year TimeIntakeOutputNet Sep 20, 2021 10:00 [id number] Sep 20, 2021 6:00 [id number] The Intake and Output Totals for the last 24 hours are: IntakeOutputNet [id number] Physical Exam by System: Neurological: A&Ox3 RUE [...] Chronic pain recs- intra-op ketamine, meloxicam post-op, PRIVATE BRANCH EXCHANGE INSTALLER until good PT eval, Suboxone as OP [...] the note. I personally evaluated the patient [id number] Electronic Signatures: Fdiel Maciel (Resident)) (Signed 22-Sep-2021 00:35) Authored: Service, Subjective Data, Objective Data, Assessment and Plan, Note Completion Lex Frederick) (Signed 22-Sep-2021 10:31) Authored: Note Completion Co-Signer: Service, Subjective Data, Objective Data, Assessment and Plan, Note Completion Last Updated: 22-Sep-2021 10:31 by Lex Frederick) Normal [facility] Discharge [id number] -18-2 022 Discharge Profile2 Discharge Orders: Anticipated Discharge Date: Anticipated Discharge [id number] Problem List: Additional Dx: Spinal stenosis of [...] Please call your Neurosurgeon's office (Dr. Frederick [phone]) if you have any questions. -If you [...] or twist. Instead, bend at knees to forklift picker objects. Wound Care: Inspect your incision [...] dosing. Performed By: #### C BC #### [facility] [address] [place] [address] Laboratory - Hematology and Cell countson 09-22-2021 [...] {/100_WBC} 0.0-0.0 MG-Gastroe n terology-Rosendo moura 6 [facility] Work Phone: OT Evaluation v2-occupationa l therapy - co-eval with PT to mon 09-22-2021 OT Evaluation v2-occupational therapy - co-eval with PT to Rehab: Info: Mode of Treatmentoccupational therapy; co-eval with PT to maximize pt's mobility and safety. Time IN10:50 Time OUT11:40 Total Treatment [id number] Patient in ... at end of sessionbed, 3 railings up; alarm on Communicated with ... at end of sessionbedside nurse Patient Effortgood Symptoms Noted During/After Treatmentfatigue; increased pain Patient Profile Reviewedyes Onset of Illness/Injury or Date of [id number] Reason for Referral-09/18/21: s/p exploration of spinal [...] EOB sitting. Pertinent History of Current Functional [age]rodwwt4 y/o with hx of HTN, C6-7 ACDF, [...] TubesIV; triple lumen; telemetry; urethral catheter indwelling; PRIVATE BRANCH EXCHANGE INSTALLER pump, DAVOL drain, wound vac O2 Deliverynasal cannula; 4L Pre Treatment Patient Positionsupine Pre Treatment Blood Pressure Qhwsugua14 mmHg Pre Treatment Diastolic (mm Hg)46 mmHg Pre Treatment Heart Rate (beats/min)67 Pre Treatment Respiratory Rate (breaths/min)19 Pre Treatment SpO2 (%)96 % Pre Treatment Oxygen Deliverysupplemental O2 Pre Treatment CommentsMAP 56 During Treatment Patient Positionsitting During Treatment Blood Pressure Tnbvjsty01 mmHg During Treatment Diastolic (mm Hg)77 mmHg [...] to sit; sit to supine Roll Left Lamar (Bed Mobility)set up; verbal cues; 2 person [...] THIS PATIENT. Performed By: #### C #### [facility] [address] [place] [address] PT Evaluation s4-nl-aoliushr t - co-treatment with OT to maxion 09-22-2021 PT Evaluation l9-os-opunjbccg - co-treatment with OT to maxi Rehab: Info: Mode of Treatmentphysical therapy; co-treatment; co-treatment with OT to maximize safety, mobility and ADL participation Time IN10:50 Time OUT11:40 Total Treatment [id number] Patient in ... at end of sessionbed, 3 railings up; alarm on Communicated with ... at end of sessionbedside nurse Patient Effortgood Symptoms Noted During/After Treatmentfatigue; increased pain Patient Profile Reviewedyes Onset of Illness/Injury or Date of [id number]-2409 Reason for Referral-09/18/21: s/p exploration of spinal [...] TubesIV; triple lumen; telemetry; urethral catheter indwelling; PRIVATE BRANCH EXCHANGE INSTALLER pump, DAVOL drain, wound vac O2 Deliverynasal cannula; 4L Pre Treatment Patient Positionsupine Pre Treatment Blood Pressure Zubtrmgc26 mmHg Pre Treatment Diastolic (mm Hg)46 mmHg Pre Treatment Heart Rate (beats/min)67 Pre Treatment SpO2 (%)96 % Pre Treatment Oxygen Deliverysupplemental O2 During Treatment Patient Positionsitting During Treatment Blood Pressure Nqrtulml49 mmHg During Treatment Diastolic (mm Hg)77 mmHg [...] sit to supine; rolling right Roll Left Lamar (Bed Mobility)verbal cues; 2 person assist; Pt required assist to bend BLE at knees and to initiate turn at shoulders and hips, verbal cues for grasp on bed rail, technique, direction follow, and encouragement.; maximum assist (25% patient effort) Roll Right Lamar (Bed Mobility)2 person assist; maximum assist (25% patient effort); verbal cues Scoot/Bridge Lamar (Bed Mobility)verbal cues; maximum assist (25% patient effort); 2 person assist; boost HOB Cmpnyr-qa-Wui Lamar (Bed Mobility)verbal cues; maximum assist (25% patient effort); 1 person assist Qmx-rq-Mizrkm Lamar (Bed Mobility)set up; verbal cues; maximum assist (25% patient effort); 1 person assist Assistive Device (Bed Mobility)bed rails; draw sheet Impairments Impacting Function (Mobility)balance; cognition; endurance/activity tolerance; pain; strength; postural/trunk control; motor control Motor: Sitting, Static (Balance)SBA Sitting, Dynamic (Balance)CGA Uuq-pm-Ksftb (Balance)MADELIN this visit. Pt hypotensive Sensory: Pre-Treatment Pain Rating7/10 Post-Treatment Pain Rating7/10 Comment, Pre/Post Treatment PainPt reported pain throughout buttocks and back, utilized PRIVATE BRANCH EXCHANGE INSTALLER pump as needed. Pain LimitationFunctional mobility limited due pain; ADLs/IADLs limited due to pain; Participation limited by pain; RN or team was notified of limitations due to p (more content not included)... Normal [facility] RENAL FUNCTION PANELon 09-22 Albumin [Mass/Vol] 2.7 g/dL Low 3.4 - 5.0 [facility] Comment on above: Performed By: #### C BC #### [facility] [address] [place] [address] Anion gap [Moles/Vol] 10 mmol/L Normal 10 - 20 [facility] Comment on above: Performed By: #### C BC #### [facility] [address] [place] [address] Calcium [Mass/Vol] 7.8 mg/dL Low 8.6 - 10.6 [facility] Comment on above: Performed By: #### C BC #### [facility] [address] [place] [address] Chloride [Moles/Vol] 105 mmol/L Normal 98 - 107 [facility] Comment on above: Performed By: #### C BC #### [facility] [address] [place] [address] Creatinine [Mass/Vol] 0.49 mg/dL Low 0.50 - 1.05 [facility] Comment on above: Performed By: #### C BC #### [facility] [address] [place] [address] eGFR FEMALE >90 Normal >90 [facility] Comment on above: Result Comment: CALC ULATIONS OF ESTIMATED GFR ARE PERFORMED USING THE 2020 CKD-EPI STUDY REFIT EQUATION WITHOUT THE RACE VARIABLE FOR THE IDMS-TRACEABLE CREATININE METHODS. https://jasn.asnjournals.org/content/early/ASN.8587530 988 Performed By: #### C BC #### [facility] [address] [place] [address] Glucose [Mass/Vol] 93 mg/dL Normal 74 - 99 [facility] Comment on above: Performed By: #### C BC #### [facility] [address] [place] [address] HCO3 (Bld) [Moles/Vol] 29 mmol/L Normal 21 - 32 [facility] Comment on above: Performed By: #### C BC #### [facility] [address] [place] [address] Phosphate [Mass/Vol] 2.4 mg/dL Low 2.5 - 4.9 [facility] Comment on above: Result Comment: The performance characteristics of phosphorus testing in heparinized plasma have been validated by the individual laboratory site where testing is performed. Testing on heparinized plasma is not approved by the FDA; however, such approval is not necessary. Performed By: #### C BC #### [facility] [address] [place] [address] Potassium [Moles/Vol] 4.3 mmol/L Normal 3.5 - 5.3 [facility] Comment on above: Performed By: #### C BC #### [facility] [address] [place] [address] Sodium [Moles/Vol] 140 mmol/L Normal 136 - 145 [facility] Comment on above: Performed By: #### C BC #### [facility] [address] [place] [address] Urea nitrogen [Mass/Vol] 9 mg/dL Normal 6 - 23 [facility] Comment on above: Performed By: #### C BC #### [facility] [address] [place] [address] Renal Function Panelon 09-22 Albumin BCP dye [...] 29 mmol/L 21 - 32 [facility]-Gastro en terology-Rosenod lwell 6 I Work Phone: Creatinine [Mass/Vol] [...] 3.5 - 5.3 [facility]-Gastroen terology-Rosendo lwell 6 [facility] Work Phone: Sodium [Moles/Vol] 140 mmol/L 136 - 145 MG-Gas troen terology-Rosendo lwell 6 I Work Phone: Urea nitrogen [Mass/Vol] 9 mg/dL 6 - 23 [facility]-Gastroen terology-Rosendo lwell 6 [facility] Work Phone: Renal Function Panel >90 >90 MG-G astroen terology-Rosendo lwell 6 [facility] Work Phone: Comment on above: CALCULATIONS OF IVY MATED GFR ARE PERFORMED USING THE 2020 CKD-EPI STUDY REFIT EQUATION WITHOUT THE RACE VARIABLE FOR THE IDMS-TRACEABLE CREATININE METHODS.https://jasn.asnjournals.org/content/early/ASN .7892831869 UA MICROSCOPICon 09-22-2021 RBC 6 /HPF Abnormal 0-5 [facility] Comment on above: Performed By: #### C BC #### [facility] [address] [place] [address] SQUAMOUS EPITH. CELLS 1 /HPF Normal [facility] Comment on above: Performed By: #### C BC #### [facility] [address] [place] [address] WBC 8 /HPF Abnormal 0-5 [facility] Comment on above: Performed By: #### C BC #### [facility] [address] [place] [address] URINALYSIS WITH CULTURE IF I NDICATEDon 09-22-2021 Appearance (U) CLEAR Normal CLEAR [facility] Comment on above: Performed By: #### U ARFX ####[id number] [place] [address] Bilirubin Ql (U) Negative Normal NEGATIVE [facility] Comment on above: Performed By: #### U ARFX ####[id number] [place] [address] Color (U) MIRANDA Normal STRAW,YELLO W [facility] [facility] Comment on above: Performed By: #### U ARFX ####[id number] [place] [address] Glucose Ql (U) Negative Normal NEGATIVE [facility] Comment on above: Performed By: #### U ARFX ####[id number] [place] [address] Hemoglobin Ql (U) Negative Normal NEGATIVE [facility] Comment on above: Performed By: #### U ARFX ####[id number] [place] [address] Ketones Ql (U) 20 (1+) Abnormal NEGATIVE [facility] Comment on above: Performed By: #### U ARFX ####[id number] [place] [address] Leukocyte esterase Test strip Ql (U) Negative Normal NEGATIVE [facility] Comment on above: Performed By: #### U ARFX ####[id number] [place] [address] Nitrite Ql (U) Negative Normal NEGATIVE [facility] Comment on above: Performed By: #### U ARFX ####[id number] [place] [address] pH (U) 5.0 [pH] Normal 5.0 - 8.0 [facility] Comment on above: Performed By: #### U ARFX ####[id number] [id number] Protein Ql (U) 30 (1+) Abnormal NEGATIVE [facility] Comment on above: Performed By: #### U ARFX ####[id number] [id number] Specific gravity (U) [Rel density] 1.040 High 1.005 - 1.035 [facility] Comment on above: Performed By: #### U ARFX ####[id number] [id number] Urobilinogen (U) [Mass/Vol] 2.0 mg/dL High 0.0 [...] positive urobilinogen. Performed By: #### U ARFX ####[id number] [place] [address] Lab Specimen Source Normal [facility] Comment on above: Performed By: #### U ARFX ####[id number] [id number] Performed By: #### C BC #### [facility] [id number] [place] [address] Color (U) MIRANDA See Below MG-Gastroen terology-Rosendo [...] CULTURE,BACTERIALon URINE CULTURE,BACTERIAL PATIENT: MORALES LEE LOCATION: [place] [address] BILL#: [id number] : 71 AGE: SEX: F ORDERED BY: AMBROCIO IZAGUIRRE SOURCE: URINE COLLECTED: 09/22/21 12:59 ANTIBIOTICS AT [facility].: RECEIVED : 09/22/21 14:59 SITE: R E S U L T S URINE CULTURE,BACTERIAL FINAL 09/23/21 09:04 NO SIGNIFICANT GROWTH. Normal [facility] Comment on above: Performed By: #### C BC #### [facility] [address] [place] [address] Urinalysis, Microscopicon Urinalysis, Microscopic 1 {/HPF} MG-Gastroen [...] above: Performed By: #### R ENAL #### [facility] [address] [place] [address] Hematocrit (Bld) [Volume fraction] 34.5 % Low 36.0 - 46.0 [facility] Comment on above: Performed By: #### R ENAL #### [facility] [address] [place] [address] Hemoglobin (Bld) [Mass/Vol] 11.4 g/dL Low 12.0 - 16.0 [facility] Comment on above: Performed By: #### R ENAL #### [facility] [address] [place] [address] MCHC (RBC) [Mass/Vol] 33.0 g/dL Normal 32.0 - 36.0 [facility] Comment on above: Performed By: #### R ENAL #### [facility] [address] [place] [address] MCV (RBC) [Entitic vol] 91 fL Normal 80 - 100 [facility] Comment on above: Performed By: #### R ENAL #### [facility] [address] [place] [address] NUCLEATED RBC 0.0 /100 WBC Normal 0.0-0.0 [facility] Comment on above: Performed By: #### R ENAL #### [facility] [address] [place] [address] Platelets (Bld) [#/Vol] 269 10*3/uL Normal 150 - 450 [facility] Comment on above: Performed By: #### R ENAL #### [facility] [address] [place] [address] RBC 3.81 x10E12/L Low 4.00 - 5.20 [facility] Comment on above: Performed By: #### R ENAL #### [facility] [address] [place] [address] WBC (Bld) [#/Vol] 14.6 10*3/uL High 4.4 - 11.3 [facility] Comment on above: Performed By: #### R ENAL #### [facility] [address] [place] [address] Erythrocyte distribution width (RBC) [Ratio] 13.2 % Normal 11.5 - 14.5 [facility] Comment on above: Performed By: #### R ENAL #### [facility] [address] [place] [address] Hematocrit (Bld) [Volume fraction] 35.8 % Low 36.0 - 46.0 [facility] Comment on above: Performed By: #### R ENAL #### [facility] [address] [place] [address] Hemoglobin (Bld) [Mass/Vol] 11.9 g/dL Low 12.0 - 16.0 [facility] Comment on above: Performed By: #### R ENAL #### [facility] [address] [place] [address] MCHC (RBC) [Mass/Vol] 33.2 g/dL Normal 32.0 - 36.0 [facility] Comment on above: Performed By: #### R ENAL #### [facility] [address] [place] [address] MCV (RBC) [Entitic vol] 91 fL Normal 80 - 100 [facility] Comment on above: Performed By: #### R ENAL #### [facility] [address] [place] [address] NUCLEATED RBC 0.0 /100 WBC Normal 0.0-0.0 [facility] Comment on above: Performed By: #### R ENAL #### [facility] [address] [place] [address] Platelets (Bld) [#/Vol] 215 10*3/uL Normal 150 - 450 [facility] Comment on above: Performed By: #### R ENAL #### [facility] [address] [place] [address] RBC 3.93 x10E12/L Low 4.00 - 5.20 [facility] Comment on above: Performed By: #### R ENAL #### [facility] [address] [place] [address] WBC (Bld) [#/Vol] 14.8 10*3/uL High 4.4 - 11.3 [facility] Comment on above: Performed By: #### R ENAL #### [facility] [address] [place] [address] Daily Progress Note-Nuha stearns 09-21-2021 Daily Progress Note-Neurosurgery Service: Neurosurgery Subjective Data: MORALES LEE is a 46 year old Female who is Hospital Day # 7 and POD #3 for 1. Exploration of spinal fusion;2. Reduction of L4/5 dislocation;2. L5-pelvis instrumented fusion with posterolateral arthrodesis;4. Extension of instrumentation with multiple kwame construct and side connectors. Objective Data: Objective Information: T PRBPSpO2 [id number]/8495% Date/Time09/20 15: 4: 4: 4: 4:00 Range(36.9C [...] sleeping ---- Intake and Output ----- Mn/Dy/[facility] Sep 19, 2021 10:00 [id number] Sep 19, 2021 6:00 [id number] The Intake and Output Totals for the last 24 hours are: IntakeOuttohatchi health care centerNet [id number] Physical Exam by System: Neurological: A&Ox3 RUE [...] Chronic pain recs- intra-op ketamine, meloxicam post-op, [employer] INSTALLER until good PT eval, Suboxone as OP [...] the following: I personally evaluated the patient [id number] Comments/ Additional Findings The patient has been [...] 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 COMPARISON: MRI December 24, [address] of the lumbar spine September 18, 2021 ACCESSION NUMBER(S): [id number]; [id number] ORDERING CLINICIAN: DEVANTE STARKS TECHNIQUE: Sagittal axial [...] S1-2. Electronically signed by: NATALIA WALL, Normal [facility] No Panel Informationon [...] Preop Checklist Preop Checklist: Preop Checklist: Arrival [id number] Arrival Time11:00 Procedure Typere-exploration of spine Temperature C36.2 degrees C Temperature F97.1 degrees F Heart Rate91 beats per minute Respiratory Rate18 breath per minute Blood Pressure Aktkbnmi315 mm/Hg Blood Pressure Lwbaafwho93 mm/Hg COVID 19 Results in Last 7 [...] Performed By: #### A FPA3 #### [facility] [address] [place] [id number] TYPE + SCREENon 09-21-2021 ABO TYPE O Normal [facility] Comment on above: Performed By: #### A FPA3 #### [facility] [address] [place] [address] RH TYPE Positive Normal [facility] Comment on above: Performed By: #### A FPA3 #### [facility] [address] [place] [address] ABO TYPE Canceled Normal [facility] Comment on above: Order Comment: VENECIA ESPINO, 09/21/2021 05:08TEST TYPE + SCREEN WAS CANCELLED, 09/21/2021 05:06 NO PHLEB ID ON TUBE. Result Comment: EULA ESPINO, 09/21/2021 05:08 Performed By: #### A FPA3 #### [facility] [address] [place] [address] RH TYPE Canceled Normal [facility] Comment on above: Order Comment: VENECIA ESPINO, 09/21/2021 05:08TEST TYPE + SCREEN WAS CANCELLED, 09/21/2021 05:06 NO PHLEB ID ON TUBE. Result Comment: CALL ED RN AFSANEH ESPINO, 09/21/2021 05:08 Performed By: #### A FPA3 #### [facility] [address] [place] [address] CBCon 09-20-2021 Erythrocyte distribution width (RBC) [Ratio] 13.2 % Normal 11.5 - 14.5 [facility] Comment on above: Performed By: #### C BC #### [facility] [address] [place] [address] Hematocrit (Bld) [Volume fraction] 30.8 % Low 36.0 - 46.0 [facility] Comment on above: Performed By: #### C BC #### [facility] [address] [place] [address] Hemoglobin (Bld) [Mass/Vol] 9.8 g/dL Low 12.0 - 16.0 [facility] Comment on above: Performed By: #### C BC #### [facility] [address] [place] [address] MCHC (RBC) [Mass/Vol] 31.8 g/dL Low 32.0 - 36.0 [facility] Comment on above: Performed By: #### C BC #### [facility] [address] [place] [address] MCV (RBC) [Entitic vol] 93 fL Normal 80 - 100 [facility] Comment on above: Performed By: #### C BC #### [facility] [address] [place] [address] NUCLEATED RBC 0.0 /100 WBC Normal 0.0-0.0 [facility] Comment on above: Performed By: #### C BC #### [facility] [address] [place] [address] Platelets (Bld) [#/Vol] 224 10*3/uL Normal 150 - 450 [facility] Comment on above: Performed By: #### C BC #### [facility] [address] [place] [address] RBC 3.32 x10E12/L Low 4.00 - 5.20 [facility] Comment on above: Performed By: #### C BC #### [facility] [address] [place] [address] WBC (Bld) [#/Vol] 12.1 10*3/uL High 4.4 - 11.3 [facility] Comment on above: Performed By: #### C BC #### [facility] [address] [place] [address] Daily Progress Note-Neurosur leonidasyon 09-20-2021 Daily Progress Note-Neurosurgery Service: Neurosurgery Subjective Data: MORALES LEE is a 46 year old Female who is Hospital Day # 6 and POD #2 for 1. Exploration of spinal fusion;2. Reduction of L4/5 dislocation;2. L5-pelvis instrumented fusion with posterolateral arthrodesis;4. Extension of instrumentation with multiple kwame construct and side connectors. Objective Data: Objective Information: T PRBPSpO2 Value36.8071089/5095% Date/Time09/19 16: 1:341 16: 1:341 1:34 Range(36.7C - 36.7C ) (84 - 110 ) (18 - 18 ) (82 - 118 )/ (50 - 97 ) (94% - 97% ) As of 19-Sep-2021 08:00:00, patient is on 2 L/min of oxygen via nasal cannula. 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 [place] [id number] CBCon 09-19-2021 Erythrocyte distribution width (RBC) [Ratio] 12.4 % Normal 11.5 - 14.5 [facility] Comment on above: Performed By: #### R ENAL #### [facility] [address] [place] [address] Hematocrit (Bld) [Volume fraction] 38.3 % Normal 36.0 - 46.0 [facility] Comment on above: Performed By: #### R ENAL #### [facility] [address] [place] [address] Hemoglobin (Bld) [Mass/Vol] 13.4 g/dL Normal 12.0 - 16.0 [facility] Comment on above: Performed By: #### R ENAL #### [facility] [address] [place] [address] MCHC (RBC) [Mass/Vol] 35.0 g/dL Normal 32.0 - 36.0 [facility] Comment on above: Performed By: #### R ENAL #### [facility] [address] [place] [address] MCV (RBC) [Entitic vol] 85 fL Normal 80 - 100 [facility] Comment on above: Performed By: #### R ENAL #### [facility] [address] [place] [address] NUCLEATED RBC 0.0 /100 WBC Normal 0.0-0.0 [facility] Comment on above: Performed By: #### R ENAL #### [facility] [address] [place] [address] Platelets (Bld) [#/Vol] 326 10*3/uL Normal 150 - 450 [facility] Comment on above: Performed By: #### R ENAL #### [facility] [address] [place] [address] RBC 4.51 x10E12/L Normal 4.00 - 5.20 [facility] Comment on above: Performed By: #### R ENAL #### [facility] [address] [place] [address] WBC (Bld) [#/Vol] 20.5 10*3/uL High 4.4 - 11.3 [facility] Comment on above: Performed By: #### R ENAL #### [facility] [address] [place] [address] CBC AND DIFFERENTIALon 09-19 % AUTOMATED IMMATURE GRAN 0.6 % Normal 0.0 - 0.9 [facility] Comment on above: Result Comment: Jaleesa ture Granulocyte Count (IG) includes promyelocytes, myelocytes and metamyelocytes but does not include bands. Percent differential counts (%) should be interpreted in the context of the absolute cell counts (cells/L). Performed By: #### V FPA3 #### [facility] [address] [place] [address] Basophils (Bld) [#/Vol] 0.03 10*3/uL Normal 0.00 - 0.10 [facility] Comment on above: Performed By: #### V FPA3 #### [facility] [address] [place] [address] Basophils/100 WBC (Bld) 0.1 % Normal 0.0 - 2.0 [facility] Comment on above: Performed By: #### V FPA3 #### [facility] [address] [place] [address] Eosinophils (Bld) [#/Vol] 0.01 10*3/uL Normal 0.00 - 0.70 [facility] Comment on above: Performed By: #### V FPA3 #### [facility] [address] [place] [address] Eosinophils/100 WBC (Bld) 0.0 % Normal 0.0 - 6.0 [facility] Comment on above: Performed By: #### V FPA3 #### [facility] [address] [place] [address] Erythrocyte distribution width (RBC) [Ratio] 12.9 % Normal 11.5 - 14.5 [facility] Comment on above: Performed By: #### V FPA3 #### [facility] [address] [place] [address] Hematocrit (Bld) [Volume fraction] 38.3 % Normal 36.0 - 46.0 [facility] Comment on above: Performed By: #### V FPA3 #### [facility] [address] [place] [address] Hemoglobin (Bld) [Mass/Vol] 12.7 g/dL Normal 12.0 - 16.0 [facility] Comment on above: Performed By: #### V FPA3 #### [facility] [address] [place] [address] Lymphocytes (Bld) [#/Vol] 2.89 10*3/uL Normal 1.20 - 4.80 [facility] Comment on above: Performed By: #### V FPA3 #### [facility] [address] [place] [address] Lymphocytes/100 WBC (Bld) 13.5 % Normal 13.0 - 44.0 [facility] Comment on above: Performed By: #### V FPA3 #### [facility] [address] [place] [address] MCHC (RBC) [Mass/Vol] 33.2 g/dL Normal 32.0 - 36.0 [facility] Comment on above: Performed By: #### V FPA3 #### [facility] [address] [place] [address] MCV (RBC) [Entitic vol] 89 fL Normal 80 - 100 [facility] Comment on above: Performed By: #### V FPA3 #### [facility] [address] [place] [address] Monocytes (Bld) [#/Vol] 1.23 10*3/uL High 0.10 - 1.00 [facility] Comment on above: Performed By: #### V FPA3 #### [facility] [address] [place] [address] Monocytes/100 WBC (Bld) 5.7 % Normal 2.0 - 10.0 [facility] Comment on above: Performed By: #### V FPA3 #### [facility] [address] [place] [address] Neutrophils (Bld) [#/Vol] 17.16 10*3/uL High 1.20 - 7.70 [facility] Comment on above: Performed By: #### V FPA3 #### [facility] [address] [place] [address] Neutrophils/100 WBC (Bld) 80.1 % Normal 40.0 - 80.0 [facility] Comment on above: Performed By: #### V FPA3 #### [facility] [address] [place] [address] NUCLEATED RBC 0.0 /100 WBC Normal 0.0-0.0 [facility] Comment on above: Performed By: #### V FPA3 #### [facility] [address] [place] [address] Platelets (Bld) [#/Vol] 401 10*3/uL Normal 150 - 450 [facility] Comment on above: Performed By: #### V FPA3 #### [facility] [address] [place] [address] RBC 4.28 x10E12/L Normal 4.00 - 5.20 [facility] Comment on above: Performed By: #### V FPA3 #### [facility] [address] [place] [address] WBC (Bld) [#/Vol] 21.5 10*3/uL High 4.4 - 11.3 [facility] Comment on above: Performed By: #### V FPA3 #### [facility] [address] [place] [address] COAGULATION SCREENon 022 aPTT Coag (Bld) [Time] 29 s Normal 26 - 39 [facility] Comment on above: Result Comment: Note new reference range as of 08/04/2021 at 10:00am. Performed By: #### R ENAL #### [facility] [address] [place] [address] PT Coag (PPP) [Time] 11.5 s Normal 9.8 - 13.4 [facility] Comment on above: Result Comment: Note new reference range as of 08/04/2021 at 10:00am. Performed By: #### R ENAL #### [facility] [address] [place] [address] PT, INR 1.0 Normal 0.9 - 1.1 [facility] Comment on above: Performed By: #### R ENAL #### [facility] [address] [place] [address] Complete Blood Count + Diffe vidya 09-19-2021 [...] 4.28 {x10E12/L} See Below MG -Gastroen terology-[place] 6 I Work Phone: Comment on above: Reference Range: 4.0 0 - 5.20 WBC (Bld) [#/Vol] 21.5 10*3/uL above high threshold 4.4 - 11.3 MG-Gastroen terology-[facility] Work Phone: Complete Blood Count + Differential 0.0 % 0.0 - 6.0 MG-Gastroen terology-[place] 6 I Work Phone: Complete Blood Count + Differential 0.6 % 0.0 - 0.9 MG-Gastroen terology-Ros[facility] 6 I Work Phone: Comment on above: [...] 1.2 0 - 7.70 Daily Progress Note-Neurosur jinny 09-19-2021 Daily Progress Note-Neurosurgery Service: Neurosurgery Subjective Data: MORALES LEE is a 46 year old Female who is Hospital Day # 4 and POD #0 for 1. Exploration of spinal fusion;2. Reduction of L4/5 dislocation;2. L5-pelvis instrumented fusion with posterolateral arthrodesis;4. Extension of instrumentation with multiple kwame construct and side connectors. Objective Data: Objective Information: T PRBPSpO2 Value36.11194179/8596% Date/Time09/18 17: 17: 17: 17: 17:40 Range(36.4C [...] ----- Mn/Dy/Year TimeIntakeOutputNet Sep 17, 2021 10:00 [id number] The Intake and Output Totals for the last 24 hours are: IntakeOutputNet [id number] Physical Exam by System: Neurological: A&Ox3 RUE D5, B5, T5, HG5, IO5 LUE D4+, B4+, T4+, HG4+, IO5 RLE HF 4+, KE4+, PF5, DF5 (pain limited) LLE HF 4-, KE4-, PF4, DF5 Recent Lab Results: Results: Recent Arterial Blood Gas Results 09/18/2021 11:48 [id number] 24 h range: ( 219 - 224 ) pH7.44 24 h range: ( 7.44 - 7.45 ) tUI027 24 h range: ( 37 - 40 ) NF7567 24 h range: ( 100 - 100 ) Base Excess2.8 24 h range: ( 1.8 - 2.8 ) Xmabbrlvsof18.2 24 h range: ( 25.7 - 27.2 [...] the note. I personally evaluated the patient [id number] Comments/ Additional Findings Patients postoperative CT scan [...] above: Performed By: #### R ENAL #### [facility] [address] [place] [address] PT Evaluation v2-attemptedon 09-19-2021 PT Evaluation v2-attempted Rehab: Info: Mode of Treatmentattempted Time IN11:37 Time OUT11:50 Total Treatment [id number] Evaluation Not PerformedHistory obtained, BP assessed in [...] above: Performed By: #### A FPA3 #### [facility] [address] [place] [address] Anion gap [Moles/Vol] 18 mmol/L Normal 10 - 20 [facility] Comment on above: Performed By: #### A FPA3 #### [facility] [address] [place] [address] Calcium [Mass/Vol] 8.3 mg/dL Low 8.6 - 10.6 [facility] Comment on above: Performed By: #### A FPA3 #### [facility] [address] [place] [address] Chloride [Moles/Vol] 100 mmol/L Normal 98 - 107 [facility] Comment on above: Performed By: #### A FPA3 #### [facility] [address] [place] [address] Creatinine [Mass/Vol] 0.60 mg/dL Normal 0.50 - 1.05 [facility] Comment on above: Performed By: #### A FPA3 #### [facility] [address] [place] [address] eGFR FEMALE >90 Normal >90 [facility] Comment on above: Result Comment: CALC ULATIONS OF ESTIMATED GFR ARE PERFORMED USING THE 2020 CKD-EPI STUDY REFIT EQUATION WITHOUT THE RACE VARIABLE FOR THE IDMS-TRACEABLE CREATININE METHODS. https://jasn.asnjournals.org/content/early/ASN.4874653 988 Performed By: #### A FPA3 #### [facility] [address] [place] [address] Glucose [Mass/Vol] 82 mg/dL Normal 74 - 99 [facility] Comment on above: Performed By: #### A FPA3 #### [facility] [address] [place] [address] HCO3 (Bld) [Moles/Vol] 26 mmol/L Normal 21 - 32 [facility] Comment on above: Performed By: #### A FPA3 #### [facility] [address] [place] [address] Phosphate [Mass/Vol] 2.8 mg/dL Normal 2.5 - 4.9 [facility] Comment on above: Result Comment: The performance characteristics of phosphorus testing in heparinized plasma have been validated by the individual laboratory site where testing is performed. Testing on heparinized plasma is not approved by the FDA; however, such approval is not necessary. Performed By: #### A FPA3 #### [facility] [address] [place] [address] Potassium [Moles/Vol] 4.5 mmol/L Normal 3.5 - 5.3 [facility] Comment on above: Performed By: #### A FPA3 #### [facility] [address] [place] [address] Sodium [Moles/Vol] 139 mmol/L Normal 136 - 145 [facility] Comment on above: Performed By: #### A FPA3 #### [facility] [facility] [address] [place] [address] Urea nitrogen [Mass/Vol] 9 mg/dL Normal 6 - 23 [facility] Comment on above: Performed By: #### A FPA3 #### [facility] [address] [place] [address] Albumin [Mass/Vol] 3.6 g/dL Normal 3.4 - 5.0 [facility] Comment on above: Performed By: #### R ENAL #### [facility] [address] [place] [address] Anion gap [Moles/Vol] 13 mmol/L Normal 10 - 20 [facility] Comment on above: Performed By: #### R ENAL #### [facility] [address] [place] [address] Calcium [Mass/Vol] 8.9 mg/dL Normal 8.6 - 10.6 [facility] Comment on above: Performed By: #### R ENAL #### [facility] [address] [place] [address] Chloride [Moles/Vol] 100 mmol/L Normal 98 - 107 [facility] Comment on above: Performed By: #### R ENAL #### [facility] [address] [place] [address] Creatinine [Mass/Vol] 0.51 mg/dL Normal 0.50 - 1.05 [facility] Comment on above: Performed By: #### R ENAL #### [facility] [address] [place] [address] eGFR FEMALE >90 Normal >90 [facility] Comment on above: Result Comment: CALC ULATIONS OF ESTIMATED GFR ARE PERFORMED USING THE 2020 CKD-EPI STUDY REFIT EQUATION WITHOUT THE RACE VARIABLE FOR THE IDMS-TRACEABLE CREATININE METHODS. https://jasn.asnjournals.org/content//ASN.1939846 988 Performed By: #### R ENAL #### [facility] [address] [place] [address] Glucose [Mass/Vol] 123 mg/dL High 74 - 99 [facility] Comment on above: Performed By: #### R ENAL #### [facility] [address] [place] [address] HCO3 (Bld) [Moles/Vol] 28 mmol/L Normal 21 - 32 [facility] Comment on above: Performed By: #### R ENAL #### [facility] [address] [place] [address] Phosphate [Mass/Vol] 2.8 mg/dL Normal 2.5 - 4.9 [facility] Comment on above: Result Comment: The performance characteristics of phosphorus testing in heparinized plasma have been validated by the individual laboratory site where testing is performed. Testing on heparinized plasma is not approved by the FDA; however, such approval is not necessary. Performed By: #### R ENAL #### [facility] [address] [place] [address] Potassium [Moles/Vol] 4.3 mmol/L Normal 3.5 - 5.3 [facility] Comment on above: Performed By: #### R ENAL #### [facility] [address] [place] [address] Sodium [Moles/Vol] 137 mmol/L Normal 136 - 145 [facility] Comment on above: Performed By: #### R ENAL #### [facility] [address] [place] [address] Urea nitrogen [Mass/Vol] 8 mg/dL Normal 6 - 23 [facility] Comment on above: Performed By: #### R ENAL #### [facility] [address] [place] [address] Renal Function Panelon 09-19 Albumin BCP dye [Mass/Vol] 3.4 g/dL 3.4 - 5.0 [facility] Work Phone: Anion gap [Moles/Vol] 18 mmol/L [...] RACE VARIABLE FOR THE IDMS-TRACEABLE CREATININE METHODS.https://jasn.asnjournals.org/content/early/ASN .1802381203 ANTIBODY IDENT.on 09-18-2021 ANTIBODY IDENT. Anti-E Normal [facility] Comment on above: Performed By: #### A FPA3 #### [facility] [address] [place] [address] ARTERIAL FULL PANELon 2021 Anion gap [Moles/Vol] 5 mmol/L Low 10 - 25 [facility] Comment on above: Performed By: #### A FPA3 ####[id number] [place] [address] BASE EXCESS-BLOOD 2.8 mmol/L Normal -2.0 - 3.0 [facility] Comment on above: Performed By: #### A FPA3 ####[id number] [place] [address] BICARB, CALCULATED 27.2 mmol/L High 22.0 - 26.0 [facility] Comment on above: Performed By: #### A FPA3 ####[id number] [place] [address] CALCIUM,IONIZED 1.20 mmol/L Normal 1.10 - 1.33 [facility] Comment on above: Performed By: #### A FPA3 ####[id number] [place] [address] Chloride [Moles/Vol] 106 mmol/L Normal 98 - 107 [facility] Comment on above: Performed By: #### A FPA3 ####[id number] [place] [address] Glucose [Mass/Vol] 149 mg/dL High 74 - 99 [facility] Comment on above: Performed By: #### A FPA3 ####[id number] [place] [address] Hematocrit (Bld) [Volume fraction] 38.0 % Normal 36.0 - 46.0 [facility] Comment on above: Performed By: #### A FPA3 ####[id number] [place] [address] HGB,CALCULATED 12.9 g/dL Normal 12.0 - 16.0 [facility] Comment on above: Performed By: #### A FPA3 ####[id number] [place] [address] Lactate [Moles/Vol] 0.9 mmol/L Normal 0.4 - 2.0 [facility] Comment on above: Performed By: #### A FPA3 ####[id number] [place] [address] Oxygen (Bld) [Partial pressure] 219 mm[Hg] High 85 - 95 [facility] Comment on above: Performed By: #### A FPA3 ####[id number] [place] [address] PATIENT TEMPERATURE 37.0 degrees C Normal [facility] Comment on above: Result Comment: NOTE : PATIENT RESULTS ARE NOT CORRECTED FOR TEMPERATURE. Performed By: #### A FPA3 ####[id number] [place] [address] PCO2 40 mmHg Normal 38 - 42 [facility] Comment on above: Performed By: #### A FPA3 ####[id number] [place] [address] pH (Bld) 7.44 [pH] High 7.38 - 7.42 [facility] Comment on above: Performed By: #### A FPA3 ####[id number] [place] [address] Potassium [Moles/Vol] 4.4 mmol/L Normal 3.5 - 5.3 [facility] Comment on above: Performed By: #### A FPA3 ####[id number] [place] [address] SO2 100 % Normal 94 - 100 [facility] Comment on above: Performed By: #### A FPA3 ####[id number] [place] [address] Sodium [Moles/Vol] 134 mmol/L Low 136 - 145 [facility] Comment on above: Performed By: #### A FPA3 ####[id number] [place] [address] Anion gap [Moles/Vol] 7 mmol/L Low 10 - 25 [facility] Comment on above: Performed By: #### A FPA3 #### [facility] [address] [place] [address] BASE EXCESS-BLOOD 1.8 mmol/L Normal -2.0 - 3.0 [facility] Comment on above: Performed By: #### A FPA3 #### [facility] [address] [place] [address] BICARB, CALCULATED 25.7 mmol/L Normal 22.0 - 26.0 [facility] Comment on above: Performed By: #### A FPA3 #### [facility] [address] [place] [address] CALCIUM,IONIZED 1.20 mmol/L Normal 1.10 - 1.33 [facility] Comment on above: Performed By: #### A FPA3 #### [facility] [address] [place] [address] Chloride [Moles/Vol] 105 mmol/L Normal 98 - 107 [facility] Comment on above: Performed By: #### A FPA3 #### [facility] [address] [place] [address] Glucose [Mass/Vol] 174 mg/dL High 74 - 99 [facility] Comment on above: Performed By: #### A FPA3 #### [facility] [address] [place] [address] Hematocrit (Bld) [Volume fraction] 37.0 % Normal 36.0 - 46.0 [facility] Comment on above: Performed By: #### A FPA3 #### [facility] [address] [place] [address] HGB,CALCULATED 12.6 g/dL Normal 12.0 - 16.0 [facility] Comment on above: Performed By: #### A FPA3 #### [facility] [address] [place] [address] Lactate [Moles/Vol] 1.1 mmol/L Normal 0.4 - 2.0 [facility] Comment on above: Performed By: #### A FPA3 #### [facility] [address] [place] [address] Oxygen (Bld) [Partial pressure] 224 mm[Hg] High 85 - 95 [facility] Comment on above: Performed By: #### A FPA3 #### [facility] [address] [place] [address] PATIENT TEMPERATURE 37.0 degrees C Normal [facility] Comment on above: Result Comment: NOTE : PATIENT RESULTS ARE NOT CORRECTED FOR TEMPERATURE. Performed By: #### A FPA3 #### [facility] [address] [place] [address] PCO2 37 mmHg Low 38 - 42 [facility] Comment on above: Performed By: #### A FPA3 #### [facility] [address] [place] [address] pH (Bld) 7.45 [pH] High 7.38 - 7.42 [facility] Comment on above: Performed By: #### A FPA3 #### [facility] [address] [place] [address] Potassium [Moles/Vol] 3.9 mmol/L Normal 3.5 - 5.3 [facility] Comment on above: Performed By: #### A FPA3 #### [facility] [address] [place] [address] SO2 100 % Normal 94 - 100 [facility] Comment on above: Performed By: #### A FPA3 #### [facility] [address] [place] [address] Sodium [Moles/Vol] 134 mmol/L Low 136 - 145 [facility] Comment on above: Performed By: #### A FPA3 #### [facility] [address] [place] [address] CT L Spine without Contrasto n 09-18-2021 [...] connectors. Objective Data: Objective Information: T PRBPSpO2 [id number]/4391% Date/Time09/18 6:041 5:561 5:561 5:561 5:56 Range(37C - 37C [...] Recent Arterial Blood Gas Results 09/18/2021 11:48 [id number] 24 h range: ( 219 - 224 ) pH7.44 24 h range: ( 7.44 - 7.45 ) zUP419 24 h range: ( 37 - 40 ) NR8245 24 h range: ( 100 - 100 ) Base Excess2.8 24 h range: ( 1.8 - 2.8 ) Dnfygpyudhn46.2 24 h range: ( 25.7 - 27.2 ) Assessment and Plan: Code Status: Code StatusFull Code Electronic Signatures: Bryan Mora) (Signed 18-Sep-2021 14:47) Authored: Service, Subjective Data, Objective Data, Assessment and Plan, Note Completion Last Updated: 18-Sep-2021 14:47 by Bryan Mora) Normal [facility] Daily Progress Note-Neurosur jinny 09-18-2021 Daily Progress Note-Neurosurgery Service: Neurosurgery Subjective Data: MORALES LEE is a 46 year old Female who is Hospital Day # 4. Objective Data: Objective Information: T PRBPSpO2 [id number]/4391% Date/Time09/18 6: 5: 5: 5: 5:56 Range(36.6C [...] ----- Mn/Dy/Year TimeIntakeOutputNet Sep 17, 2021 10:00 [id number] Sep 17, 2021 2:00 [id number] The Intake and Output Totals for the [...] the note. I personally evaluated the patient [id number] Electronic Signatures: Fidel Maciel (Resident)) (Signed 18-Sep-2021 [...] above high threshold 74 - 99 [facility] [facility] I Work Phone: HCO3 (Bld) [...] dated 10/07/2020. MRI dated 12/11/2020 ACCESSION NUMBER(S): [id number] ORDERING CLINICIAN: ANGELO JUAREZ TECHNIQUE: Thin cut [...] as stated. This study was interpreted at [place], [place]. Electronically signed by: BOONE LAO MD [...] Respiratory Rate15 breath per minute Blood Pressure Unxmxiwh01 mm/Hg Blood Pressure Pagiebsks32 mm/Hg COVID 19 Results in Last 7 [...] >90 >90 [facility]-G astroen terology-[place] 6 [facility] Work Phone: Comment on above: CALCULATIONS OF IVY MATED GFR ARE PERFORMED USING THE 2020 CKD-EPI STUDY REFIT EQUATION WITHOUT THE RACE VARIABLE FOR THE IDMS-TRACEABLE CREATININE METHODS.https://jasn.asnjournals.org/content/early//ASN .[id number] TH CHEST; 1 VIEWon 2 TH CHEST; 1 VIEW Patient Name: MORALES LEE STUDY: CHEST; 1 VIEW; 09/18/2021 2:38 pm INDICATION: s/p central line placement (right IJ double lumen) . COMPARISON: Radiograph dated 09/15/2021 ACCESSION NUMBER(S): [id number] ORDERING CLINICIAN: BRYAN MORA FINDINGS: Right IJ [...] above: Performed By: #### V FPA3 #### [facility] [address] [place] [address] BASE EXCESS-BLOOD 3.9 mmol/L High -2.0 - 3.0 [facility] Comment on above: Performed By: #### V FPA3 #### [facility] [address] [place] [address] BICARB, CALCULATED 28.5 mmol/L High 22.0 - 26.0 [facility] Comment on above: Performed By: #### V FPA3 #### [facility] [address] [place] [address] CALCIUM,IONIZED 1.17 mmol/L Normal 1.10 - 1.33 [facility] Comment on above: Performed By: #### V FPA3 #### [facility] [address] [place] [address] Chloride [Moles/Vol] 103 mmol/L Normal 98 - 107 [facility] Comment on above: Performed By: #### V FPA3 #### [facility] [address] [place] [address] Glucose [Mass/Vol] 188 mg/dL High 74 - 99 [facility] Comment on above: Performed By: #### V FPA3 #### [facility] [address] [place] [address] Hematocrit (Bld) [Volume fraction] 39.0 % Normal 36.0 - 46.0 [facility] Comment on above: Performed By: #### V FPA3 #### [facility] [address] [place] [address] HGB,CALCULATED 13.3 g/dL Normal 12.0 - 16.0 [facility] Comment on above: Performed By: #### V FPA3 #### [facility] [address] [place] [address] Lactate [Moles/Vol] 1.2 mmol/L Normal 0.4 - 2.0 [facility] Comment on above: Performed By: #### V FPA3 #### [facility] [address] [place] [address] Oxygen (Bld) [Partial pressure] 56 mm[Hg] High 35 - 45 [facility] Comment on above: Performed By: #### V FPA3 #### [facility] [address] [place] [address] PATIENT TEMPERATURE 37.0 degrees C Normal [facility] Comment on above: Result Comment: NOTE : PATIENT RESULTS ARE NOT CORRECTED FOR TEMPERATURE. Performed By: #### V FPA3 #### [facility] [address] [place] [address] PCO2 42 mmHg Normal 41 - 51 [facility] Comment on above: Performed By: #### V FPA3 #### [facility] [address] [place] [address] pH (Bld) 7.44 [pH] High 7.33 - 7.43 [facility] Comment on above: Performed By: #### V FPA3 #### [facility] [address] [place] [address] Potassium [Moles/Vol] 4.1 mmol/L Normal 3.5 - 5.3 [facility] Comment on above: Performed By: #### V FPA3 #### [facility] [address] [place] [address] SO2 91 % High 45 - 75 [facility] Comment on above: Performed By: #### V FPA3 #### [facility] [address] [place] [address] Sodium [Moles/Vol] 133 mmol/L Low 136 - 145 [facility] Comment on above: Performed By: #### V FPA3 #### [facility] [address] [place] [address] CORONAVIRUS 2019, SCREEN ASY MPTOMATICon 09-17-2021 SARS-CoV-2 (COVID-19) RNA ADRIÁN+probe Ql (Unsp spec) Not detected Normal Not Detected [facility] Comment on above: Result Comment: . This test has received FDA Emergency Use Authorization (EUA) and has been verified by [facility] ([facility]). This test is only authorized for the duration of time that circumstances exist to justify the authorization of the emergency use of in vitro diagnostic tests for the detection of SARS-CoV-2 virus and/or diagnosis of COVID-19 infection under section 564(b)(1) of the Act, 21 U.S.C. 360bbb-3(b)(1), unless the authorization is terminated or revoked sooner. [facility] is certified under CLIA-88 as qualified to perform high complexity testing. Testing is performed in the [facility] located at [address] [place] [address]. SARS-CoV-2/Flu/RSV Multiplex Test: Fact sheet for providers: https://www.fda.gov/media/183198/download Fact sheet for patients: https://www.fda.gov/media/488467/download Performed By: #### C OVSC ####[id number] [place] [address] Lab Specimen Source Nasal, Nasopharyngeal Normal [facility] Comment on above: Performed By: #### C OVSC ####[id number] [place] [address] Coronavirus 2019 RNA by PCR, Screening Asymptomticon 09-17-2021 Coronavirus 2019 RNA by PCR, Screening Asymptomtic Not detected Normal See Below [facility] 6 [facility] Work Phone: Comment on above: SOURCE: Nasal, Nasop haryngealReference Range: Not Detected.This test has received FDA Emergency Use Authorization (EUA) and has been verified by [facility] ([facility]). This test is only authorized for the duration of time that circumstances exist to justify the authorization of the emergency use of in vitro diagnostic tests for the detection of SARS-CoV-2 virus and/or diagnosis of COVID-19 infection under section 564(b)(1) of the Act, 21 U.S.C. 360bbb-3(b)(1), unless the authorization is terminated or revoked sooner. [facility] is certified under CLIA-88 as qualified to perform high complexity testing. Testing is performed in the [facility] located at [address] [place] [address].SARS-CoV-2/Flu/RSV Multiplex Test: Fact sheet for providers: https://www.fda.gov/media/955120/downloadFact sheet for patients: https://www.fda.gov/media/724639/download Covid 19 Resultson 2 SARS-CoV-2 (COVID-19) RNA [...] be contacted by the [facility] to see if any of [...] or Naproxen (Aleve) can also be used. Hgde-yip-yswpkum cough and cold medicines can be used according to the instructions on the package. Some ramf-sza-zuvohjs medicines also contain acetaminophen. Make sure you [...] water are not available, use alcohol-based hand panel raiser operator. Avoid touching your eyes, nose, and [...] pain but found it well-controlled on Dilaudid [employer]ST[employer]ER and 5/10 mg oxycodone. Pt is interested [...] he has been working (cardoza at a [employer]), but she looks forward to his arrival [...] her suboxone. Objective: Objective Information: T PRBPSpO2 Value36.13943901/9095% Date/Time09/17 4: 10: 10:: 10:00 Range(35.7C - 36.6C ) (81 - 89 ) (10 - 23 ) (73 - 117 )/ (43 - 90 ) (91% - 96% ) As of 17-Sep-2021 08:00:00, patient is on 3 L/min of oxygen via nasal cannula. Pain reported at 09/17 8:00: 8 = Severe ---- Intake and Output ----- Mn/Dy/Year TimeIntakeOutputNet Sep 17, 2021 6:00 [id number] Sep 16, 2021 2:00 [id number] The Intake and Output Totals for the last 24 hours are: IntakeOutputNet [id number] Mental Status Exam: General: Awake, lying in [...] 3. Objective Data: Objective Information: T PRBPSpO2 Value35.0491617/4393% Date/Time09/16 18:5409/16 18:5409/16 18:5409/16 18:5409/16 18:54 Range(35.7C - 36.4C ) (81 - 91 ) (15 - 24 ) (87 - 118 )/ (43 - 84 ) (91% - 96% ) As of 16-Sep-2021 18:54:00, patient is on 2 L/min of oxygen via nasal cannula. Pain reported at 09/16 16:34: 10 = Severe ---- Intake and Output ----- Mn/Dy/Year TimeIntakeOutLifeB[facility] Sep 16, 2021 2:00 [id number] Physical Exam by System: Neurological: A&Ox3 RUE [...] the note. I personally evaluated the patient [id number] Comments/ Additional Findings I again explained to [...] above: Performed By: #### A FPA3 #### [facility] [address] [place] [address] Laboratory - Blood bankon ABO group Nom [...] Comment on above: Performed By: #### O AUTOMOBILE BUMPER STRAIGHTENER #### [facility] [address] [place] [address] TYPE + SCREENon 09-17-2021 ABO TYPE O Normal [facility] Comment on above: Performed By: #### T +S #### [facility] [address] [place] [address] RH TYPE Positive Normal [facility] Comment on above: Performed By: #### T +S #### [facility] [address] [place] [address] Urine Teston 09-17 HCG ( test) Ql [...] information. Performed By: #### A FPA3 #### [facility] [address] [place] [address] CBC AND DIFFERENTIALon 09-16 % AUTOMATED IMMATURE GRAN 0.5 % Normal 0.0 - 0.9 [facility] Comment on above: Result Comment: Jaleesa ture Granulocyte Count (IG) includes promyelocytes, myelocytes and metamyelocytes but does not include bands. Percent differential counts (%) should be interpreted in the context of the absolute cell counts (cells/L). Performed By: #### C BCDF ####[id number] [place] [address] Basophils (Bld) [#/Vol] 0.04 10*3/uL Normal 0.00 - 0.10 [facility] Comment on above: Performed By: #### C BCDF ####[id number] [place] [address] Basophils/100 WBC (Bld) 0.5 % Normal 0.0 - 2.0 [facility] Comment on above: Performed By: #### C BCDF ####[id number] [place] [address] Eosinophils (Bld) [#/Vol] 0.26 10*3/uL Normal 0.00 - 0.70 [facility] Comment on above: Performed By: #### C BCDF ####[id number] [place] [address] Eosinophils/100 WBC (Bld) 3.0 % Normal 0.0 - 6.0 [facility] Comment on above: Performed By: #### C BCDF ####[id number] [place] [address] Erythrocyte distribution width (RBC) [Ratio] 13.0 % Normal 11.5 - 14.5 [facility] Comment on above: Performed By: #### C BCDF ####[id number] [place] [address] Hematocrit (Bld) [Volume fraction] 42.7 % Normal 36.0 - 46.0 [facility] Comment on above: Performed By: #### C BCDF ####[id number] [place] [address] Hemoglobin (Bld) [Mass/Vol] 14.1 g/dL Normal 12.0 - 16.0 [facility] Comment on above: Performed By: #### C BCDF ####[id number] [place] [address] Lymphocytes (Bld) [#/Vol] 3.17 10*3/uL Normal 1.20 - 4.80 [facility] Comment on above: Performed By: #### C BCDF ####[id number] [place] [address] Lymphocytes/100 WBC (Bld) 37.2 % Normal 13.0 - 44.0 [facility] Comment on above: Performed By: #### C BCDF ####[id number] [place] [address] MCHC (RBC) [Mass/Vol] 33.0 g/dL Normal 32.0 - 36.0 [facility] Comment on above: Performed By: #### C BCDF ####[id number] [place] [address] MCV (RBC) [Entitic vol] 91 fL Normal 80 - 100 [facility] Comment on above: Performed By: #### C BCDF ####[id number] [place] [address] Monocytes (Bld) [#/Vol] 0.47 10*3/uL Normal 0.10 - 1.00 [facility] Comment on above: Performed By: #### C BCDF ####[id number] [place] [address] Monocytes/100 WBC (Bld) 5.5 % Normal 2.0 - 10.0 [facility] Comment on above: Performed By: #### C BCDF ####[id number] [place] [address] Neutrophils (Bld) [#/Vol] 4.55 10*3/uL Normal 1.20 - 7.70 [facility] Comment on above: Performed By: #### C BCDF ####[id number] [place] [address] Neutrophils/100 WBC (Bld) 53.3 % Normal 40.0 - 80.0 [facility] Comment on above: Performed By: #### C BCDF ####[id number] [place] [address] NUCLEATED RBC 0.0 /100 WBC Normal 0.0-0.0 [facility] Comment on above: Performed By: #### C BCDF ####[id number] [place] [address] Platelets (Bld) [#/Vol] 278 10*3/uL Normal 150 - 450 [facility] Comment on above: Performed By: #### C BCDF ####[id number] [place] [address] RBC 4.70 x10E12/L Normal 4.00 - 5.20 [facility] Comment on above: Performed By: #### C BCDF ####[id number] [place] [address] WBC (Bld) [#/Vol] 8.5 10*3/uL Normal 4.4 - 11.3 [facility] Comment on above: Performed By: #### C BCDF ####[id number] [place] [address] COAGULATION SCREENon 022 aPTT Coag (Bld) [Time] 31 s Normal 26 - 39 [facility] Comment on above: Result Comment: Note new reference range as of 08/04/2021 at 10:00am. Performed By: #### V FPA3 #### [facility] [address] [place] [address] PT Coag (PPP) [Time] 11.6 s Normal 9.8 - 13.4 [facility] Comment on above: Result Comment: Note new reference range as of 08/04/2021 at 10:00am. Performed By: #### V FPA3 #### [facility] [address] [place] [address] PT, INR 1.0 Normal 0.9 - 1.1 [facility] Comment on above: Performed By: #### V FPA3 #### [facility] [address] [place] [address] Clinical Event Note-ADMISSIO N CLARIFICATIONon 09-16-2021 Clinical [...] and monitoring for withdrawal. Provider/Team Contact Info-Pager [id number] Electronic Signatures: Sharmin Guaman (WINDOW SYSTEMS ADMINISTRATOR-WIRELESS MANAGER) (Signed 16-Sep-2021 12:07) Authored: Clinical Event Note Last Updated: 16-Sep-2021 12:07 by Sharmin Guaman (WINDOW SYSTEMS ADMINISTRATOR-WIRELESS MANAGER) Normal [facility] Complete Blood Count + Diffe rentialon [...] the note. I personally evaluated the patient [id number] Electronic Signatures: Chidi Lamar (Fellow)) (Signed 16-Sep-2021 [...] penicillin: Unknown Objective: Objective Information: T PRBPSpO2 Value36.93385165/8491% Date/Time09/16 11:131/12 12:4909/16 12:4909/16 12:4909/16 12:49 Range(36.3C - 36.4C [...] Nom (U) Abnormal [facility]-Gastroen terology-[facility] 6 [facility] Work Phone: Daily Progress Note-Neurosjudy stearns 09-16-2021 Daily Progress Note-Neurosurgery Service: Neurosurgery Subjective Data: MORALES LEE is a 46 year old Female who is Hospital Day # 3. Objective Data: Objective Information: T PRBPSpO2 Value36.2012874/6693% Date/Time09/16 1: 4: 4: 4: 4:00 Range(36.3C [...] (suboxone) in AM COWS psych recs SCD's, [facility] Attestation: Note Completion: I am a: [...] the note. I personally evaluated the patient [id number] Comments/ Additional Findings TO OR this Tuesday if medically optimized for T12 - Pelvis fusion and Instrumentation. Pain consult for management regrading Suboxone and pain control in the perioperative period. US LE MRI of the lumbar spine., Lex Frederick MD, [facility], FAANS Director - Minimally Invasive Spine Surgery [facility] City Editor of Neurological Surgery [facility] [employer] [place], [place] Electronic Signatures: Fidel Maciel (Resident)) (Signed [...] above: . <100 pg/mL - Heart failure [id number] pg/mL - Intermediate probability of acute heart. [...] above: Performed By: #### R ENAL #### [facility] [address] [place] [address] Anion gap [Moles/Vol] 14 mmol/L Normal 10 - 20 [facility] Comment on above: Performed By: #### R ENAL #### [facility] [address] [place] [address] Calcium [Mass/Vol] 8.9 mg/dL Normal 8.6 - 10.6 [facility] Comment on above: Performed By: #### R ENAL #### [facility] [address] [place] [address] Chloride [Moles/Vol] 101 mmol/L Normal 98 - 107 [facility] Comment on above: Performed By: #### R ENAL #### [facility] [address] [place] [address] Creatinine [Mass/Vol] 0.63 mg/dL Normal 0.50 - 1.05 [facility] Comment on above: Performed By: #### R ENAL #### [facility] [address] [place] [address] eGFR FEMALE >90 Normal >90 [facility] Comment on above: Result Comment: CALC ULATIONS OF ESTIMATED GFR ARE PERFORMED USING THE 2020 CKD-EPI STUDY REFIT EQUATION WITHOUT THE RACE VARIABLE FOR THE IDMS-TRACEABLE CREATININE METHODS. https://jasn.asnjournals.org/content//ASN.5052619 988 Performed By: #### R ENAL #### [facility] [address] [place] [address] Glucose [Mass/Vol] 88 mg/dL Normal 74 - 99 [facility] Comment on above: Performed By: #### R ENAL #### [facility] [address] [place] [address] HCO3 (Bld) [Moles/Vol] 29 mmol/L Normal 21 - 32 [facility] Comment on above: Performed By: #### R ENAL #### [facility] [address] [place] [address] Phosphate [Mass/Vol] 3.4 mg/dL Normal 2.5 - 4.9 [facility] Comment on above: Result Comment: The performance characteristics of phosphorus testing in heparinized plasma have been validated by the individual laboratory site where testing is performed. Testing on heparinized plasma is not approved by the FDA; however, such approval is not necessary. Performed By: #### R ENAL #### [facility] [address] [place] [address] Potassium [Moles/Vol] 3.7 mmol/L Normal 3.5 - 5.3 [facility] Comment on above: Performed By: #### R ENAL #### [facility] [address] [place] [address] Sodium [Moles/Vol] 140 mmol/L Normal 136 - 145 [facility] Comment on above: Performed By: #### R ENAL #### [facility] [address] [place] [address] Urea nitrogen [Mass/Vol] 10 mg/dL Normal 6 - 23 [facility] Comment on above: Performed By: #### R ENAL #### [facility] [address] [place] [address] Renal Function Panelon 09-16 Albumin BCP dye [...] 29 mmol/L 21 - 32 MG-Gastro en terology-[facility] lwell 6 I Work Phone: Creatinine [Mass/Vol] [...] 3.5 - 5.3 MG-Gastroen terology-[place] [facility] 6 [facility] Work Phone: Sodium [Moles/Vol] 140 mmol/L 136 - 145 MG-Gas troen terology-[place] 6 I Work Phone: Urea nitrogen [Mass/Vol] 10 mg/dL 6 - 23 [facility]-Gastroen terology-[place] [facility] 6 I Work Phone: Renal Function Panel >90 >90 MG-G astroen terology-[place] 6 [facility] Work Phone: Comment on above: CALCULATIONS OF IVY MATED GFR ARE PERFORMED USING THE 2020 CKD-EPI STUDY REFIT EQUATION WITHOUT THE RACE VARIABLE FOR THE IDMS-TRACEABLE CREATININE METHODS.https://jasn.asnjournals.org/content//ASN .4078197982 [facility] 09-16-2021 BACTERIA 2+ /HPF Abnormal [facility] Comment on above: Performed By: #### U AMIC ####[id number] [place] [address] Mucus Ql (Urine sed) 1+ /LPF Normal [facility] Comment on above: Performed By: #### U AMIC ####[id number] [place] [address] RBC 3 /HPF Normal 0-5 [facility] Comment on above: Performed By: #### U AMIC ####[id number] [place] [address] SQUAMOUS EPITH. CELLS 2 /HPF Normal [facility] Comment on above: Performed By: #### U AMIC ####[id number] [place] [address] WBC 115 /HPF Abnormal 0-5 [facility] Comment on above: Performed By: #### U AMIC ####[id number] [place] [address] URINALYSISon 09-16-2021 Appearance (U) HAZY Normal CLEAR [facility] Comment on above: Performed By: #### U A ####[id number] [place] [address] Bilirubin Ql (U) Negative Normal NEGATIVE [facility] Comment on above: Performed By: #### U A ####[id number] [place] [address] Color (U) YELLOW Normal STRAW,YELLO W [facility] Comment on above: Performed By: #### U A ####[id number] [place] [address] Glucose Ql (U) Negative Normal NEGATIVE [facility] Comment on above: Performed By: #### U A ####[id number] [place] [address] Hemoglobin Ql (U) Negative Normal NEGATIVE [facility] Comment on above: Performed By: #### U A ####[id number] [place] [address] Ketones Ql (U) Negative Normal NEGATIVE [facility] Comment on above: Performed By: #### U A ####[id number] [place] [address] Leukocyte esterase Test strip Ql (U) LARGE (3+) Abnormal NEGATIVE [facility] Comment on above: Performed By: #### U A ####[id number] [place] [address] Nitrite Ql (U) Positive Abnormal NEGATIVE [facility] Comment on above: Performed By: #### U A ####[id number] [place] [address] pH (U) 6.0 [pH] Normal 5.0 - 8.0 [facility] Comment on above: Performed By: #### U A ####[id number] [place] [address] Protein Ql (U) Negative Normal NEGATIVE [facility] Comment on above: Performed By: #### U A ####[id number] [place] [address] Specific gravity (U) [Rel density] 1.011 Normal 1.005 - 1.035 [facility] Comment on above: Performed By: #### U A ####[id number] [place] [address] Urobilinogen (U) [Mass/Vol] 2.0 mg/dL High 0.0 [...] positive urobilinogen. Performed By: #### U A ####[id number] [place] [address] URINE CULTURE,BACTERIALon URINE CULTURE,BACTERIAL PATIENT: MORALES LEE LOCATION: [facility]#: [id number] : [birth year] AGE: SEX: F ORDERED BY: [...] above: Performed By: #### A FPA3 #### [facility] [address] [place] [address] Urinalysison 09-16-2021 Color (U) YELLOW See Below MG-Gastroen [employer] 6 [facility] Work Phone: Comment on above: Reference Range: STR AW,YELLOW Glucose Ql (U) Negative NEGATIVE MG-Gastroe n terology-[place] [facility] 6 [facility] Work Phone: Ketones Ql (U) Negative NEGATIVE MG-Gastroe n terology-[place] 6 I Work Phone: Leukocyte esterase Test [...] 1 See Below MG-Gastroen terology-[facility] 6 [facility] Work Phone: Comment on above: Reference Range: 1.0 05 - 1.035 Urinalysis Positive Abnormal NEGATIVE MG-Gastroen terology-[place] 6 [facility] Work Phone: Urinalysis 2.0 mg/dL above [...] Urinalysis HAZY CLEAR MG-Gastroen terology-[place] 6 I Work Phone: Urinalysis, Microscopicon Urinalysis, Microscopic 1+ MG-Gastroen terology-[facility] 6 [facility] Work Phone: Urinalysis, Microscopic 2+ Abnormal MG-Gastroen terology-[place] [facility] 6 [facility] Work Phone: Urinalysis, Microscopic 2 {/HPF} MG-Gastroen terology-[place] [facility] 6 [facility] Work Phone: Urinalysis, Microscopic 3 {/HPF} 0-5 MG-Gastroen terology-[place] [facility] 6 [facility] Work Phone: Urinalysis, Microscopic 115 {/HPF} Abnormal 0-5 MG-Gastroen terology-[place] 6 [facility] Work Phone: VAS LAB Venous Duplex Ultra sound DVTon 09-16-2021 VAS LAB Venous Duplex Ultrasound DVT [place] [address] and Vascular Lab Report Lower Venous Duplex Ultrasound Patient Name: MORALES LEE Reading Physician: [id number] Arjun Romero MD, RPVI Study Date: 09/16/2021 Referring Physician: [id number] HARRISON RAGSDALE MRN/PID: [id number] PCP: Accession/Order#: [id number] CC Report to: Date of : 1975 Technologist: Isai Burleson RVT Gender: F Technologist 2: Admission Status: Outpatient Location Performed: [facility] Diagnosis/ICD: M79.89-Left leg swelling; M79.89-Right leg swelling Procedure/CPT: 05965 Peripheral venous duplex scan for DVT complete-78090 CONCLUSIONS: Right Lower Venous: No evidence of [...] Spontaneous/Phasic Peroneal Yes None PTV Yes None [id number] Arjun Romero MD, YOLIE Final Normal [facility] VAS LAB Venous Duplex Ultra sound for DVTon 09-16-2021 [facility] Venous Duplex Ultrasound for DVT MG-Gastroen terology-[place] 6 I Work Phone: No Panel Informationon 09-15 [email or web address]?Ret rieveTestByDateTime?Patient SN=[id number]&Date= 2&Time=19%3a14%3a23%3a00&Te stType=ECG&Site=1&OutputTyp e=PDF&Ext=PDF MG-Gastroen terology-[place] [facility] 6 I Work Phone: [phone] Normal sinus rhythm MG-Ga stroen terology-[place] 6 I Work Phone: [phone] Abnormal MG-Gastroen terology-[place] [facility] 6 [facility] Work Phone: [phone] MG-Gastroen terology-[place] [facility] 6 I Work Phone: [phone] [facility]-Gastroen terology-[place] [facility] 6 [facility] Work Phone: [phone] [facility]-Gastroen terology-[place] [facility] 6 [facility] Work Phone: [phone] MG-Gastroen terology-[place] [facility] 6 [facility] Work Phone: [phone] MG-Gastroen terology-[place] [facility] 6 [facility] Work Phone: [phone] MG-Gastroen terology-[place] [facility] 6 [facility] Work Phone: [phone] 1 MG-Gastroen terology-[place] lwell 6 [...] I Work Phone: [email or web address]?Ret rieveTestByDateTime?Patient SA=[id number]&Date= 2&Time=19%3a14%3a42%3a00&Te stType=ECG&Site=1&OutputTyp e=PDF&Ext=PDF MG-Gastroen terology-[place] [facility] 6 [...] Phone: [phone] MG-Gastroen terology-[place] [facility] 6 [facility] Work Phone: Order Reconciliationon 09-15 Order Reconciliation Page 1 Admission Reconciliation Document Reconciliation Type: Admission requested on behalf of Concetta Shi (Advanced Practice Nurse) done by Concetta Shi ([facility]) Admission - Reconciliation: 15-Sep-2021 19:03 [...] to Incomplete: 30-Sep-2021 14:18 by: Concetta Shi ([facility]) Admission - Reconciliation: 30-Sep-2021 14:20 by: Concetta Shi ([facility]) Home MedicationsEnteredLast Dose TakenReconciled with current Order Reconciliation Comment/ Additional Information acetaminophen 325 mg oral tablet 2 tab(s) orally every 6 hours, as needed while having post operative [id number] Reviewed and Held Ambien CR 12.5 mg oral tablet, extended release 1 tab(s) oral [id number]-Qsb-2846 Zolpidem Tablet (AMBIEN)DOSE = 10 mg Oral At BedtimeNotes from Pharmacy: Substitution For Zolpidem (Ambien CR) 12.5 mg at Bedtime Ambien CR 12.5 mg oral tablet, extended release continued as the inpatient order Zolpidem Ankle Foot Orthosis for foot [id number]-Wmj-5532 Reviewed and Held betamethasone topical valerate 0.1% topical cream 1 milena topical prn 15-Sep-2021 EnteredInError Reviewed and Held Bilateral Prafos - orthotics to fit, - ICD 10: R26.0, M21.37, M62.81 30-Sep-2021 Reviewed and Held calcium-vitamin D 500 mg-200 intl units (5 mcg) oral tablet 1 tab(s) orally 4 times a [id number]-Ipd-1605 Calcium 500 mg - Vitamin D 200 [...] times a day, as needed for muscle [id number]-Cqg-5970 Cyclobenzaprine Tablet (FLEXERIL)DOSE = 10 mg Oral [...] topical 1% topical gel 1 milena topical rie62-Ebr-4604 Reviewed and Held DULoxetine 30 mg oral [...] 2 tab(s) orally once a day, As Xqtmns71-Onq-1042 Reviewed and Held gabapentin 800 mg oral tablet 1 tab(s) oral 3 times a wae71-Ocm-2156 Gabapentin Capsule (NEURONTIN)DOSE = 800 mg Oral 3 Times a Day gabapentin 800 mg oral tablet continued as the inpatient order Gabapentin LEFT AFO -Orthotics to fit, ICD 10: M21.5735-Cgj-8450 Reviewed and Held lidocaine 5% topical film Apply topically to affected area once a day, As Needed near surgical incision for incisional pain 15-Sep-2021 EnteredInError Reviewed and Held lisinopril 20 mg oral tablet 1 tab(s) oral once a xjr30-Hmd-5772 Lisinopril Tablet (PRINIVIL, ZESTRIL)DOSE = 20 mg [...] patch TransDermal Every 24 HoursNotes from Pharmacy: [facility] nicotine 14 mg/24 hr transdermal film, [...] - available over the counter at any tddclkmu39-Jhn-1519 Reviewed and Held RIGHT AFO - Orthotics to fit, - M21.5600-Oov-2740 Reviewed and Held sennosides-docusate 8.6 mg-50 mg oral tablet 2 tab(s) orally 2 times a day , -Take while using oxycodone for post operative pain to prevent contipation 15-Sep-19 (more content not included)... Normal [facility] Radiologyon 09-15-2021 XR Chest Single view Normal MG-G astroen terology-Rosendo moura 6 [facility] Work Phone: TH CHEST 1 VIEWon 09-15-2021 TH CHEST 1 VIEW Patient Name: MORALES LEE STUDY: CHEST 1 VIEW; 09/15/2021 7:21 pm INDICATION: pre-op . COMPARISON: 12/26/2020. ACCESSION NUMBER(S): [id number] ORDERING CLINICIAN: TOSAH BORJA FINDINGS: CARDIOMEDIASTINAL SILHOUETTE: Cardiomediastinal silhouette is normal in size and configuration. LUNGS: Lungs are clear of focal airspace disease or edema. No pneumothorax ABDOMEN: Elevation right hemidiaphragm again noted. BONES: Patient status post cervical spine fusion. IMPRESSION: 1. No active airspace disease. Elevation of the right hemidiaphragm and correlate with any concern for diaphragmatic dysfunction. Electronically signed by: Esther PEDERSON MD Normal [facility] Established Visit (Neurosurg ariana)on 09-08-2021 Established [...] in the Neurosurgery Spine Clinic at the [facility]. She is a very pleasant 46-year-old [...] obvious instability (more content not included)... Normal [employer] No Panel Informationon 09-08 Normal MG-Neurosur samson-Miguel [...] and T6-L4 Fusion. COMPARISON: None. ACCESSION NUMBER(S): [id number] ORDERING CLINICIAN: LEX FREDERICK FINDINGS: Fused PA [...] Electronically signed by: JOSEPH SALAZAR MD Normal [facility] Tobacco Screening.on Fall risk assessment b) One or more fall s in the last year [facility] Work Phone: Tobacco use status CPHS a) Yes [employer]-[facility] Work Phone: Established Visit (Neurosurg ariana)on 05-05-2021 Established Visit (Neurosurgery) History of Present Illness I just had the pleasure of seeing Mrs. Jesus villarreal in the Neurosurgery Spine Clinic at the [facility]. She is a very pleasant 45 -year-old female, who recently underwent a L1 Vertbrectomy and T6-L4 Fusion with me on 12/26/2020 and is status post 4 Months out from her surgery. Today's visit was a virtual visit with the patient at her home and myself at [facility]. She mentions that overall she is [...] in Ms. LEE care. Lex Frederick MD, [facility], FAANS Director - Minimally Invasive Spine Surgery [facility] City Editor of Neurological Surgery [facility] [employer] [place], [place] Some of this note was completed using [employer] voice recognition technology and sometimes the software [...] May 05 2021 9:18PM EST (Author) Normal ComptTIA Established Visit (Neurosurg ariana)on 01-08-2021 Established Visit [...] in the Neurosurgery Spine Clinic at the [facility]. She is a very pleasant 45 -year-old female, who recently underwent a L1 Vertbrectomy and T6-L4 Fusion with [place] on 12/26/2020 and is status post 2 [...] the further treatment plan. Lex Frederick MD, [facility], FAANS Director - Minimally Invasive Spine Surgery [facility] Oyster Opener of Neurological Surgery [facility] [employer] [facility] [place], [place] Some of this note was completed using [employer] voice recognition technology and sometimes the software [...] Jan 08 2021 1:19PM EST (Author) Normal [facility] NR MRI T-SPINE WOon 12-25-19 NR MRI T-SPINE WO Patient Name: MORALES LEE STUDY: MRI T-SPINE WO; 12/24/2020 12:50 pm INDICATION: Lumbar Pain Scoliosis, unspecified Unspecified cord compression. COMPARISON: None. ACCESSION NUMBER(S): [id number] ORDERING CLINICIAN: LEX FREDERICK TECHNIQUE: Multiplanar and [...] spine. Electronically signed by: LENNY HAGER MD [facility] NR MRI L-SPINE WOon 12-12-19 21 NR MRI L-SPINE WO Patient Name: MORALES LEE STUDY: MRI L-SPINE WO; ; 12/11/2020 1:38 pm INDICATION: Lumbar Pain Scoliosis, unspecified Low back pain. COMPARISON: CT lumbar spine from 10/07/2020. MRI lumbar spine from 03/11/2016. ACCESSION NUMBER(S): [id number] ORDERING CLINICIAN: LEX FREDERICK TECHNIQUE: MRI of [...] multiple levels. This study was interpreted at [facility]. Electronically signed by: WESLEY CARBAJAL MD [facility] Initial Visit (Neurosurgery) on 10-28-2020 Initial [...] Status:Resulted - Preliminary,Retrospective By Protocol Authorization; Done: [id number] 12:00AM Reason: Unspecified for Xray Spine, entire thoracic/lumbar, include skull, cervical and sacral spine when performed, 2 or 3 view Radiologist to Determine Optimal Study : Y What are the patient's signs and symptoms? : Lumbar Pain SocHx: Current smoker Tobacco Use Screening; Status:Complete; Done: [id number] Patient Discussion/Summary It was a pleasure to see Ms. LEE at the Neurosurgery Spine Clinic at [facility]. Ms. 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 She now has been having severe symptoms [...] evaluated by another spine surgeon at the [facility] who recommended urgent surgery for her on [...] even walk (more content not included)... Normal ComptTIA CNPNon 07-10-2019 CNPN Telephone (SPNMMN) MORALES LEE ([id number]) 1975 F Date Time Provider Department 07/10/19 DIXIE TEE PAGEPR During your visit today, we recorded the [...] Order(s):CONSULT TO ORTHOPAEDIC SURGERY [[id number]] Order #: [id number]: 1 Prescriptions as of 07/10/2019 Sig: LISINOPRIL [...] Status:Closed by DIXIE TEE MD on 07/10/19 [facility] CNOVon 07-09-2019 CNOV Office Visit (SPNSMN ) MORALES LEE ([id number]) 1975 F Date Time Provider Department 07/09/19 9:30 AM STEVENSON QUAN SPNSMN During your visit today, we recorded the following information about you: Pulse Respiration Blood pressure Weight 89/minute 18/minute 124/74 95.8 kg Height 1.499 m Stevenson Quan MD 07/09/2019 2:56 PM Signed SPINE SURGERY OUTPATIENT CONSULT SERVICE DATE: 07/09/2019 PCP: No primary care provider on file. REFERRING PROVIDER: Dixie Tee MD [id number] [facility] [address] [id number] Consult requested for an opinion regarding the [...] file Gets together: Not on file Attends voodoo service: Not on file Active member of [...] with the patient or the patient?s personal car sales representative. 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] Other Visit Diagnosis:Spinal stenosis of thoracic region [M48.04] Order(s):CT THORACIC SPINE WO IVCON [[id number]] Order #: [id number] FUTURE Prescriptions as of 07/09/2019 Sig: LISINOPRIL [...] Status:Closed by STEVENSON QUAN MD on 07/09/19 [facility] OBSOLETEon 07-09-2019 OBSOLETE Procedure (EMGMN) MORALES LEE ([id number]) 1975 F Date Time Provider Department 07/09/19 [...] upper limb [G56.21] Order(s):EMG(NEURO/NI) [[id number]] Order #: [id number]: 1 Prescriptions as of 07/09/2019 Sig: LISINOPRIL [...] by JHON EASON MD on 07/09/19 Normal [facility] PROGRESSon 07-09-2019 PROGRESS HNO ID: [id number] Author: Stevenson Quan Service: ? Author Type: Physician Type: Progress Notes Filed: 07/09/2019 2:56 PM Note Text: SPINE SURGERY OUTPATIENT CONSULT SERVICE DATE: 07/09/2019 PCP: No primary care provider on file. REFERRING PROVIDER: Dixie Tee MD [address] [facility] [id number] Consult requested for an opinion regarding the [...] file Gets together: Not on file Attends voodoo service: Not on file Active member of [...] with the patient or the patient?s personal car sales representative. The patient has elected to [...] 09, 2019 TIME: 10:24 AM PAGER: Normal [facility] OT-XR DEXA BONE DENSITY IMPO RTon 07-06-2019 OT-XR DEXA BONE DENSITY IMPORT Images were obtained outside of [facility] [id number] Normal [facility] CASE MGT INIT [facility] 2018 CASE MGT INIT [facility] HNO ID: [id number] Author: Kimberly WilksRn) MERA Dunaway Service: ? Author Type: Registered Nurse Type: Care Mgt Initial Assessment Filed: 06/20/2019 12:25 PM Note Text: CARE MANAGEMENT: ASSESSMENT AND DISCHARGE PLAN SERVICE DATE: 06/20/2019 SERVICE TIME: 12:21 PM PRIMARY CARE PHYSICIAN: No primary care provider on file. Phone: None ADMISSION STATUS: Observation Needs Prior to Discharge: To Be Determined MEDICAL: Patient/Welfare Service Aide Stated Goals: To have reduction in pain To have reduction in symptoms Health Insurance: BLUE CARD PPO Health Issues Impacting Discharge Plan: Chronic neck pain Last Discharge Date: 06/20/19 Is this Within the Past 30 days? No Advance Directive: Current Advance Directive: None Antique Dealer Attempted to Assist with AD Completion: Yes [...] None Has the Patient Been in a Group Home Facility in the Past 30 days? N/A SOCIAL: Living Arrangement: Home Lives With: Spouse Financial Resources: Disabled Primary Contact: Extended Emergency Contact Information Primary Emergency Contact: Lars Lee Address: [address] [place] [address] [facility] Mobile Relation: Spouse Supportive: Yes Other Important [...] 0 I feel financially burdened by my yvs-cv-fffbgg expenses for my prescription medication: Disagree completely [...] with . Does not utilize any DME, retirement or community resources. Has d/c transportation via . Anticipate transitional care plan of home, no skilled needs identified at this time. TCC will remain available to assist as needed with transition planning. SIGNATURE: Kimberly Dunaway RN PATIENT NAME: Morales Lee DATE: June 20, 2019 TIME: 12:21 PM PAGER/CONTACT #: [phone] Normal [facility] CBCon 06-20-2019 Erythrocyte distribution width (RBC) [Ratio] 12.6 % Normal 11.5-15.0 [facility] Comment on above: Performed By: #### C BC #### [place] [id number] Hematocrit (Bld) [Volume fraction] 48.7 % High 36.0-46.0 [facility] Comment on above: Performed By: #### C BC #### [place] [id number] Hemoglobin (Bld) [Mass/Vol] 16.8 g/dL High 11.5-15.5 [facility] Comment on above: Performed By: #### C BC #### [id number] MCH (RBC) [Entitic mass] 31.1 pG Normal 26.0-34.0 [facility] Comment on above: Performed By: #### C BC #### [place] [phone] MCHC (RBC) [Mass/Vol] 34.5 g/dL Normal 30.5-36.0 [facility] Comment on above: Performed By: #### C BC #### [place] [phone] MCV (RBC) [Entitic vol] 90.0 fL Normal 80.0-100.0 [facility] Comment on above: Performed By: #### C BC #### [place] [id number] Platelet mean volume (Bld) [Entitic vol] 10.6 fL Normal 9.0-12.7 [facility] Comment on above: Performed By: #### C BC #### [facility] [address] [place] [address] Platelets (Bld) [#/Vol] 334 10*3/uL Normal 150-400 [facility] Comment on above: Performed By: #### C BC #### [place] [address] RBC (Bld) [#/Vol] 5.41 10*6/uL High 3.90-5.20 [facility] Comment on above: Performed By: #### C BC #### [place] [address] WBC (Bld) [#/Vol] 10.85 10*3/uL Normal 3.70-11.00 [facility] Comment on above: Performed By: #### C BC #### [place] [address] CONSULTon 06-20-2019 CONSULT HNO ID: [id number] Author: Evelyn Resendez Service: Pain Management Author [...] controlled substances - including suboxone - from [facility]. Of note, pt has followed once in [...] me to leave. She is now leaving [place]. 3. Will sign off SUBJECTIVE CHIEF COMPLAINT: [...] activity was identified. 06/20/2019 by Evelyn Resendez APRN.WIRELESS MANAGER PAST MEDICAL HISTORY Diagnosis Date - Degenerative [...] file Gets together: Not on file Attends voodoo service: Not on file Active member of [...] Management Center to participate in the Morales L Jesus's care. SIGNATURE: Evelyn Resendez, WINDOW SYSTEMS ADMINISTRATOR.WIRELESS MANAGER PATIENT NAME: Morales Lee DATE: June 20, 2019 TIME: 8:24 AM PAGER/CONTACT #: [phone] (M-F [id number]) [facility] CT BRAIN WO IVCONon 06-20-[address] BRAIN WO IVCON * * *Final Report* * * DATE OF EXAM: Jun 20 2019 1:31AM [facility] 0504 - CT BRAIN WO IVCON [...] No large cortical infarct or acute hemorrhage. Dielectric Testing Machine Operator: ADITYA Transcribe Date/Time: Jun 20 2019 1:33A Dictated by : DAVONTE MOY MD This examination was interpreted and the report reviewed and electronically signed by: DAVONTE MOY MD on Jun 20 2019 1:35AM EST [id number] [facility] ECG COMPLETEon 06-20-2019 ECG COMPLETE NAME : MORALES LEE PID : [id number] : 1975 Gender : Female Race : ORD : [id number] Procedure Date : Jun 19 2019 23:57:03 Edit Date : Jun 20 2019 07:51:18 Diagnosis:Sinus rhythm Normal ECG no STEMI 1200a Confirmed by MD ARREDONDO LISA ([id number]), film or videotape editor FOREST WALTON ([id number]) on 06/20/2019 7:51:18 AM Ventricular Rate : 85 BPM Atrial Rate : 85 BPM P-R Interval : 137 ms QRS Duration : 91 ms Q-T Interval : 365 ms QTC Calculation(Bazett) : 434 ms P Bozman : 51 degrees R Bozman : -13 degrees T Bozman : 61 degrees Test Reason : Chest Pain Location : 302 : ED AVED-1 Overread By : MD CORBY,TRACY Edited By : FOREST WALTON Referred By : , Acquired by : [id number], [facility] ED NOTEon 06-20-2019 ED NOTE HNO ID: [id number] Author: Yuki Mckenzie) MERA Cruz Service: ? Author Type: Registered Nurse Type: ED Notes Filed: 06/20/2019 1:40 AM Note Text: Patient got CT, it is still pending and Jessie MESA said ok to transfer to [place] with out results pending. Patient agreeing and understanding of transfer. updated on POC and transfer via telephone. DM here to take patient at this time. Pain is not improved at time of transfer. [facility] ED NOTE HNO ID: [id number] Author: Yuki Cruz RN Service: ? Author Type: Registered Nurse Type: ED Notes Filed: 06/20/2019 1:15 AM Note Text: Clean catch urine specimen obtained and sent. [facility] ED NOTE HNO ID: [id number] Author: Yuki Cruz RN Service: ? Author [...] time with getting transferred to another facility. [facility] ED NOTE HNO ID: [id number] Author: Yuki Cruz RN Service: ? Author Type: Registered Nurse Type: ED Notes Filed: 06/20/2019 3:28 AM Note Text: Patient stated Valium did not help. She continues to be in pain and upset. She wanted to speak with someone in charge and update on POC. Normal [facility] HISTORY PHYSICALon 9 HISTORY PHYSICAL HNO ID: [id number] Author: Talita Wesley RN Service: General Internal [...] tightness that is constant. Notices a decreased anti tank missileman strength and weakness in left hand. She [...] evaluation and refill of this medication. Current 09 05/ PPD for about 20 years. Denies history [...] rotation 40/80% Decreased left C5-C7 sensation. Left anti tank missileman strength 2/5. Right anti tank missileman strength 5/5. UE DTR intact and equal. [...] tightness into left arm, weak left hand anti tank missileman strength, and worsening severity of numbness/tingling -Afebrile [...] Needs confirmed with patient pharmacy. Patient uses [facility] in [place], [place]. Patient provided #[phone]. Will call in am to confirm dose. Nicotine Abuse Assessment AND Plan: Smokes 1 1/2 PPD for 20 years. Smoking cessation advised. Nicotine patch ordered. Medication and Non-Pharmacologic VTE Prophylaxis/Anticoagulants VTE Prophylaxis: VTE prophylaxis appropriate SIGNATURE: Talita Wesley APRN.CNP PATIENT NAME: Morales Lee DATE: June 20, 2019 TIME: 2:58 AM PAGER/CONTACT #: [facility] # [phone] [facility] NURSING PROGon 06-20-2019 NURSING PROG HNO ID: [id number] Author: Austyn (Rn) MERA Berumen Service: Nursing Author Type: Registered Nurse Type: Nursing Progress Note Filed: 06/20/2019 3:10 PM Note Text: Nursing Progress Note Patient Name: Morales Lee Patient Location: [id number] 2 Daily Note:06/20/2019 -pt is upset regarding [...] note was completed by: AUSTYN BERUMEN RN [facility] NURSING PROG HNO ID: [id number] Author: Austyn Mckenzie) MERA Berumen Service: Nursing Author Type: Registered Nurse Type: Nursing Progress Note Filed: 06/20/2019 8:10 AM Note Text: Nursing Progress Note Patient Name: Morales Lee Patient Location: [id number] 2 Daily Note:06/20/2019 -assumed care of patient, pt is requesting her suboxone. We have to call to verify dosage. -MERA Acosta called pharmacy provided by night [facility] and the pharmacy does not open until 9am. We will call back to verify dose later. -Dr. Kwon called to speak with this RN, he will be in to see the patient later today. This note was completed by: AUSTYN BERUMEN RN [facility] NURSING PROG HNO ID: [id number] Author: Guadalupe Herbert RN Service: ? Author Type: Registered Nurse Type: Nursing Progress Note Filed: 06/20/2019 4:33 AM Note Text: Nursing Progress Note Patient Name: Morales Lee Patient Location: [id number]-[id number] 2 Daily Note:AANDO x 3. C/O left [...] note was completed by: Guadalupe Herbert RN [facility] PROGRESSon 06-20-2019 PROGRESS HNO ID: [id number] Author: Sedrick Martin Service: General Internal Medicine Author Type: Physician Type: Progress Notes Filed: 06/20/2019 11:04 AM Note Text: INPATIENT PROGRESS NOTE SERVICE DATE: 06/20/2019 SERVICE TIME: 10:41 AM PRIMARY SERVICE: OSORIO Miller CHIEF COMPLAINT: neck pain INTERVAL HPI: Continues [...] rales. Cor:RSR, no murmurs. 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 DATA: Diagnostic tests [...] Non-Pharmacologic VTE Prophylaxis/Anticoagulants 06/20/19399 pneumatic compression stockings ([place], [place]) 06/20/19399 activity - mobilize patient ([place]) VTE Prophylaxis: appropriate SIGNATURE: Sedrick Martin MD PATIENT NAME: Morales Lee DATE: June 20, 2019 TIME: 10:41 AM PAGER: Normal [facility] PROGRESS HNO ID: [id number] Author: Sedrick Martin Service: General Internal Medicine Author Type: Physician Type: Progress Notes Filed: 06/20/2019 8:25 AM Note Text: As per Pain Management Consult still pending, I was notified by Pain Management to resume the pt.' s home Suboxone dosage until pt. Seen later today. Normal [facility] Troponin Ton 06-20-2019 Troponin T.cardiac [Mass/Vol] ug/L Normal 0.000-0.029 [facility] Comment on above: Performed By: #### T NT #### [place] [id number] Troponin T.cardiac [Mass/Vol] ug/L Normal 0.000-0.029 [facility] Comment on above: Performed By: #### T NT #### [place] [phone] Basic Metabolic Panlon 06-19 Anion gap [Moles/Vol] 14 mmol/L Normal 9-18 [facility] Calcium [Mass/Vol] 10.3 mg/dL High 8.5-10.2 [facility] Chloride [Moles/Vol] 96 mmol/L Low 97-105 [facility] CO2 [Moles/Vol] 29 mmol/L Normal 22-30 [facility] Creatinine [Mass/Vol] 0.59 mg/dL Normal 0.58-0.96 [facility] eGFR- Amer. >60 Normal [facility] GFR/1.73 sq M predicted among non-blacks MDRD (S/P/Bld) [Vol rate/Area] mL/min/{1.73_m2} Normal [facility] Comment on above: Result Comment: eGFR [...] GFR. Glucose [Mass/Vol] 114 mg/dL High 74-99 [facility] Comment on above: Result Comment: The [place] Diabetes Association (ADA) provides guidance for cutoff [...] Standards of Medical Care in Diabetes 2016, [place] Diabetes Association. Diabetes Care. 2016.39(Suppl 1). Potassium [Moles/Vol] 3.7 mmol/L Normal 3.7-5.1 [facility] Sodium [Moles/Vol] 139 mmol/L Normal 136-144 [facility] Urea nitrogen [Mass/Vol] 7 mg/dL Normal 7-21 [facility] CBC and Differentialon 06-19 Abs Baso 0.09 k/uL Normal <0.11 [facility] Abs Holmes 0.61 k/uL Normal <0.87 [facility] Abs Neut 7.56 k/uL High 1.45-7.50 [facility] Absolute nRBC <0.01 Normal <0.01 [facility] Basophils/100 WBC (Bld) 0.7 % Normal [facility] DTYPE Auto Diff Normal [facility] Eosinophils (Bld) [#/Vol] 0.25 10*3/uL Normal <0.46 [facility] Eosinophils/100 WBC (Bld) 1.9 % Normal [facility] Erythrocyte distribution width (RBC) [Ratio] 12.0 % Normal 11.5-15.0 [facility] Hematocrit (Bld) [Volume fraction] 52.6 % High 36.0-46.0 [facility] Hemoglobin (Bld) [Mass/Vol] 18.0 g/dL High 11.5-15.5 [facility] Lymphocytes (Bld) [#/Vol] 4.67 10*3/uL High 1.00-4.00 [facility] Lymphocytes/100 WBC (Bld) 35.4 % Normal [facility] MCH (RBC) [Entitic mass] 30.0 pG Normal 26.0-34.0 [facility] MCHC (RBC) [Mass/Vol] 34.2 g/dL Normal 30.5-36.0 [facility] MCV (RBC) [Entitic vol] 87.7 fL Normal 80.0-100.0 [facility] Monocytes/100 WBC (Bld) 4.6 % Normal [facility] Neutrophils/100 WBC (Bld) 57.4 % Normal [facility] NRBCs 0.0 /100 WBC Normal 0 [facility] Platelet mean volume (Bld) [Entitic vol] 10.1 fL Normal 9.0-12.7 [facility] Platelets (Bld) [#/Vol] 370 10*3/uL Normal 150-400 [facility] RBC (Bld) [#/Vol] 6.00 10*6/uL High 3.90-5.20 [facility] WBC (Bld) [#/Vol] 13.18 10*3/uL High 3.70-11.00 [facility] ED NOTEon 06-19-2019 ED NOTE HNO ID: [id number] Author: Yuki Mckenzie) MERA Cruz Service: ? Author Type: Registered Nurse Type: ED Notes Filed: 06/20/2019 3:27 AM Note Text: Patient has requested valium, she says that she takes it at home. Biago updated. Normal [facility] ED NOTE HNO ID: [id number] Author: Yuki Mckenzie) MERA Cruz Service: ? Author Type: Registered Nurse Type: ED Notes Filed: 06/20/2019 3:27 AM Note Text: Patient is complaining of nausea. She is requesting her saboxon as well and Biago was updated on request. [facility] ED NOTE HNO ID: [id number] Author: Yuki WilksRn) MERA Cruz Service: ? Author Type: Registered Nurse Type: ED Notes Filed: 06/19/2019 7:54 PM Note Text: Said that after her surgery in 2016 her left pinky and ring finger are numb but she said lately her other fingers on that hand have been getting numb as well. [facility] ED NOTE HNO ID: [id number] Author: Vanessa WilksRn) MERA Ruiz Service: ? Author Type: Registered Nurse Type: ED Notes Filed: 06/19/2019 6:48 PM Note Text: Patient has chronic neck pain for three years. Saw spine doctor 06/12/2019 for the same had x rays. Denies any new injury. States pain goes into left arm. Arrived via wheelchair [facility] ED PROV NOTEon 06-19-2019 ED PROV NOTE HNO ID: [id number] Author: Tracy Arredondo Service: Emergency Medicine Author [...] light touch over bilateral lower extremities. 3/5 anti tank missileman, bicep, tricep strength over LUE. Decreased sensation to light touch over left upper extremity in median, radial, and ulnar nerve distribution. 5/5 anti tank missileman, bicep, tricep strength of R UE. Skin: [...] neurosurgical consult as previous notes from her transformation specialist recommend obtaining EMG and possible further [...] a neurosurgical consult she warrants transfer to [facility] for further management of her condition. We have low suspicion for stroke at this time as pain appears to be radicular in nature and she has had worsening progression of her symptoms with documented notes from spine (Dr. Álvarez) suggesting this worsening pain and numbness. The WIRELESS MANAGER, Talita, at [facility] recommended we obtain a CT brain and she must rule out any acute intercranial abnormality that may be contributing to the patient's symptoms. Therefore, this study was ordered and will be followed up by the night team especially if there is any acute intracranial abnormality. As long as there is no acute intracranial abnormality she will be transferred to [facility] for further evaluation and management of her condition. Patient voiced understanding was in agreement with the above plan. This patient's case was discussed with Dr. Arredondo who personally evaluated the patient supervised her care. The patient was TRANSFERRED to: [facility] Condition at time of disposition: stable SIGNATURE: NORMA Montgomery (Pa) 06/20/19 0026 Attending Note I have personally performed a face to face assessment of the patient and have reviewed the PA/COVERAGE SPECIALIST note. My schofield findings include: History [...] of 5 strength left upper extremities in anti tank missileman strength as well as biceps and triceps [...] worsening neck pain we will place her [place] observation for cardiac rule out as well [...] and requested by the observation provider at [place] as they were concerned about stroke. However I doubt this and did not feel this was necessary however it is currently pending and patient will be transferred to [place] if this is unremarkable. Signature: Tracy Arredondo DO Date: 06/20/2019 Time: 12:26 AM Tracy Arredondo 06/20/19 0033 Normal [facility] Magnesiumon 06-19-2019 Magnesium [Mass/Vol] 2.0 mg/dL Normal 1.7-2.3 [facility] Troponin Ton 06-19-2019 Troponin T.cardiac [Mass/Vol] ug/L Normal 0.000-0.029 [facility] CNOVon 06-12-2019 CNOV Office Visit (SPNMMN ) MORALES LEE ([id number]) 1975 F Date Time Provider Department 06/12/19 [...] file Gets together: Not on file Attends voodoo service: Not on file Active member of [...] [Z98.890] Order(s):PATIENT PLACED ON SPINE CARE PATH [3720616] Order #: [id number]: 1 XR SCOLIOSIS PA STAND/LAT 2V [[id number]] Order #: [id number] FUTURE EMG(NEURO/NI) [[id number]] Order #: [id number]: 1 FUTURE CONSULT TO SPINE SURGERY [[id number]] Order #: [id number]: 1 FUTURE Prescriptions as of 06/12/2019 Sig: [...] Status:Closed by DIXIE TEE MD on 06/12/19 [facility] PROGRESSon 06-12-2019 PROGRESS HNO ID: [id number] Author: Zoey WilksRtRobert Montiel Service: Radiology Author Type: Animal Impersonator Type: Progress Notes Filed: 06/12/2019 10:10 AM [...] RT Daxa June 12, 2019 10:09 AM [facility] PROGRESS HNO ID: [id number] Author: Dixie Tee Service: ? Author Type: [...] file Gets together: Not on file Attends voodoo service: Not on file Active member of [...] June 12, 2019 TIME: 8:12 AM Normal [facility] XR SCOLIOSIS 2V PA STAND/LAT [...] changes and multilevel compression deformities as described. Dielectric Testing Machine Operator: PSCB Transcribe Date/Time: Jun 12 2019 4:36P Dictated by : CAROLINA MOJICA MD This examination was interpreted and the report reviewed and electronically signed by: CAROLINA MOJICA MD on Jun 12 2019 4:39PM EST [id number] Normal [facility] PROGRESSon 05-14-2019 PROGRESS HNO ID: [id number] Author: Laury Levin Service: ? Author Type: Physician Wool Shearer Type: Progress Notes Filed: 05/14/2019 1:26 PM [...] to rule out cubital tunnel syndrome. Normal [facility] PROGRESSon 05-09-2019 PROGRESS HNO ID: [id number] Author: Kathia Kelly Service: ? Author Type: ? Type: Progress Notes Filed: 05/14/2019 1:26 PM Note Text: Patient name: Morales Lee Are you being referred by a [facility] Provider or Pain Management Provider at [facility]? No If answer is YES please schedule [...] in Epic: No If not, please provide [phone] to fax in imaging reports for review. [...] will fax imaging report and op notes. [phone] Normal [facility] CT-CT C-SPINE WO CON IMPORTo n 02-13-2019 CT-CT C-SPINE WO CON IMPORT Images were obtained outside of [facility] [id number] Normal [facility] CT-CT L-SPINE WO CON IMPORTo n 02-13-2019 CT-CT L-SPINE WO CON IMPORT Images were obtained outside of [facility] [id number] Normal [facility] Vital Signs Date Time Vital [...] Location NATALIA MANNING [facility] [place] 01-06-2022 10:51-0400 Diastolic blood pressure 86 mm[Hg] NATAL[facility]ANN[facility] 01-06-2022 10:51-0400 Heart rate 86 /min NATALIA MANNING [facility] 01-06-2022 10:51-0400 Respiratory rate 16 /min NATALIA MANNING [facility] 01-06-2022 10:51-0400 Systolic blood pressure 132 mm[Hg] NATALIA MANNING [facility] 09-08-2021 14:15-0500 Body height 149.86 cm No PCP None [facility]- Ah [facility] Work Phone: 09-08-2021 14:15-0500 Body mass index (BMI) [Ratio] 36.96 kg/m2 No PCP None JL-Zypncrhlefew-Fq uja Work Phone: 09-08-2021 14:15-0500 Body surface area Derived from formula 1.78 m2 No PCP None BQ-Trairttwuoay-Hg uja Work Phone: 09-08-2021 14:15-0500 Body weight 83.01 kg No PCP None [facility] Work Phone: 09-08-2021 14:15-0500 Diastolic blood pressure 68 mm[Hg] No PCP None RW-Wptttdjstkap-Vb uja Work Phone: 09-08-2021 14:15-0500 Heart rate 96 /min No PCP None [facility] Work Phone: 09-08-2021 14:15-0500 Respiratory rate 16 /min No PCP None [facility] Work Phone: 09-08-2021 14:15-0500 Systolic blood pressure 115 mm[Hg] No PCP None HM-Gtjfgttzrcui-Qx uja Work Phone: 09-08-2021 14:15-0500 0 1 [...] Date Encounter Type Care Provider Facility Start: 05-14-2024 End: 05-14-2024 ambulatory GENNY HILARIO Not Available Start: 03-27-2024 End: 03-31-2024 Pre-admission assessment LEXMARGARETH FREDERICK [facility] Start: 03-26-2024 End: 04-07-2024 Pre-admission assessment LEX FREDERICK [facility] Start: 02-13-2024 End: 02-13-2024 ambulatory SHAIKH MICAH Not Available Start: 11-01-2023 End: 11-01-2023 ambulatory SHAIKH MICAH Not Available Start: 10-10-2023 Orders Only Shaikh Micah HARKINS Work Phone: [facility] Comment on above: Chronic low back hina n, unspecified back pain laterality, unspecified whether sciatica present (Primary Dx); Nausea in adult Start: 06-02-[address] Lex Frederick Facility:[id number] Start: 01-15-2023 End: 01-15-2023 ambulatory LALI BENITEZ Facility:[facility] Start: 01-13-2023 End: 01-13-2023 ambulatory IVON LAWS . Facility:[facility] Start: 12-31-2022 ambulatory SHAIKH MICAH Facility: [facility] Start: 12-22-2022 End: 12-22-2022 ambulatory Shirley MICAH Facility: Start: 12-08-2022 AUDIT No PCP None [facility] [address] [place] Work Phone: Start: 12-08-2022 Chart Update No PCP None [facility] [facility] [address] [place] Work Phone: Start: 11-26-2022 End: 11-26-2022 Patient encounter procedure Danya Bingham [facility] Start: 11-22-2022 ambulatory SHAIKH Shirley OBRIEN Facilit y:[facility]1 Start: 11-09-2022 End: 11-09-[address] DEVANTE ELIZONDO . Facility:[facility] Start: 10-15-2022 End: 10-15-2022 ambulatory KYRA SILVA . Facility:[facility] Start: 09-24-2022 End: 09-24-2022 Patient encounter procedure Danya Bingham [facility] Start: 09-01-2022 Encounter for preprocedural laboratory examination DANYA BINGHAM . [facility] Start: 08-25-2022 End: 08-25-2022 ambulatory SHAIKH Shirley QUACHGABRIELLEDane Facility:[facility]1 Start: 08-24-2022 End: 08-25-2022 ambulatory SHAIKH Shirley DURHAMD Facility:[facility] Start: 08-24-2022 End: 08-25-2022 Encounter for preprocedural laboratory examination SHAIKH Shirley OBRIEN Facility:[facility]1 Start: 08-21-2022 ambulatory SHAIKH Shirley OBRIEN Facilit y:H1 Start: 07-16-2022 End: 07-16-2022 Patient encounter procedure Danya Bingham [facility] Start: 06-06-2022 End: 06-07-2022 Emergency department patient visit Yony Aguirre [facility] Adult ED Blue 45 Start: 05-31-2022 End: 05-31-[address] ALEXANDRU SORIA . Facility:[facility]1 Start: 05-19-2022 End: 05-19-2022 Off-Site Danya Bingham [facility] Start: 05-07-2022 End: 05-07-2022 ambulatory SHAIKH Shirley [...] 02-04-2022 Off-Site [facility] Start: 01-11-2022 Chart Update No PCP None [facility] [place] Work Phone: Start: 01-11-2022 End: 01-11-2022 Patient encounter procedure Danya AponteCrystal Lairdjacque [facility] Start: 01-07-2022 AUDIT No PCP None [facility] [place] [address] Work Phone: Start: 01-06-2022 End: 01-06-2022 Patient encounter procedure NATALIA Jacque MANNING [facility] Start: 10-13-2021 AUDIT No PCP None [facility] a Work Phone: Start: 09-29-2021 AUDIT No PCP None [facility]roe [facility]ology- [place] [facility] Work Phone: Start: 09-15-2021 End: 10-02-2021 Evaluation and management of inpatient Dr. LEX FREDERICK Facility:[facility] Start: 09-09-2021 AUDIT No PCP None [facility] a Work Phone: Start: 09-08-2021 Office outpatient vi sit 40 minutes No PCP None ZZ-Xwqkruvwxrez-Ngmn a Work Phone: Start: 05-05-2021 Postop follow up vis it related to original px No PCP None UZ-Yltrswgjazbs-BBCZ C Work Phone: Start: 12-26-2020 End: 01-01-2021 Evaluation and management of inpatient Lex Frederick [facility] [id number] Rm [id number] 01 Preoperative state No PCP None MG-Neuros urgery-[facility] C Work Phone: Procedures Date Procedure Procedure Detail Performing Clinician Start: 09-21-[address] EFRAIN FREDERICK Comment on above: Performed By: #### A FPA3 #### [facility] [address] [place] [id number] Start: 09-21-[address] EFRAIN FREDERICK Comment on above: Order Comment: CUADRA D MERA ESPINO, 09/21/2021 05:08TEST TYPE + SCREEN WAS CANCELLED, 09/21/2021 05:06 NO PHLEB ID ON TUBE. Result Comment: CALL ED MERA ESPINO, 09/21/2021 05:08 Performed By: #### A FPA3 #### [facility] [address] [place] [address] Start: 09-17-[address] EFRAIN FREDERICK Comment on above: Performed By: #### T +S #### [facility] [address] [place] [address] Start: 12-27-2020 End: 12-28-2020 Release Blood Product-Packed Red Blood Cells Devante Mayra Start: 12-26-2020 Renal function 2000 panel - Serum or Plasma Nabil Awan Appendectomy NATALIA NIGEL Cholecystectomy NATALIA PER TRISH Hernia NATALIA MANNING Hysterectomy NATALIA MANNING mylogr NATALIA NIGEL Plan of Treatment Date Care Activity Detail Author Start: 10-17-2023 End: 10-17-2023 Patient encounter procedure 10/17/2023 6:30 PM EST Office Visit [facility] [address] [place] [phone] Shaikh Obrien MD [address] [place] [id number] [facility] Start: 05-06-2023 Influenza vaccination Influenza Vacc ine (#1) [facility] Start: 11-03-2021 POV, Provider: Lex Frederick, Status: Pen, Time: 2:00 PM POV, Provider: Lex Frederick, Status: Pen, Time: 2:00 PM NU-Ijsveqqvptryaqob-Aq lwell 6 I Work Phone: Start: 10-07-2021 Admission to [facility] RNVISIT, Provider: NURSE VISIT ASHLEY 5TH,MGNEUROSURGERY, Status: Pen, Time: 10:15 AM PM-Msyucdsxnpaeiexu-Xd lwell 6 I Work Phone: Start: 09-18-2021 [facility] Provider: Lex Frederick, Status: Pen, Time: 8:00 AM [facility], Provider: Lex Frederick, Status: Pen, Time: 8:00 AM RU-Xviuyytzrkyt-Ifbch Work Phone: Start: 01-08-2021 Patient encounter procedure Neurosurgery Miguel Start: 12-31-2020 End: 01-01-2022 [facility] Comment on above: please place at beds geraldine for drain removal Start: 12-26-2020 End: 12-27-2021 Naloxone Injectable 0.4 mg IntraVenous Push Once ; (NARCAN)DOSE = 0.2 mg IntraVenous Push Once, PRN patient is unarousable, and respiratory rate lessClinician Notes: HOLD PRIVATE BRANCH EXCHANGE INSTALLER Infusion and notify H.O. immediately Start: 26-Dec-2020 End: 26-Dec-2021 Ordered: 26-Dec-2020 Nabil Awan Intent Comments: HOLD PRIVATE BRANCH EXCHANGE INSTALLER Infusion and notify H.O. immediately [facility] Comment on above: HOLD PRIVATE BRANCH EXCHANGE INSTALLER Infusion an d notify H.O. immediately Start: 2013 Screening for malignant neoplasm of breast Mammogram [facility] Start: 2003 Screening for malignant neoplasm of cervix [facility] Start: 1994 Screening for malignant neoplasm of cervix Pap Smear [facility] Start: 1973 Screening for malignant neoplasm of colon [facility] Immunizations Immunization Date Immunization Notes Care Provider Delfino chu 02-22-2020 tetanus toxoid, redu luis diphtheria toxoid, and acellular pertussis vaccine, adsorbed Danya Bingham [facility] 12-05-2018 hepatitis A vaccine, adult dosage Danya Bingham [facility] Payers Date Payer Category Payer Unknown 1973 Unknown [id number] 2.16. [id number] 1973 Unknown [id number] 2.16. 840.1.641989.3.579.2.356 1973 Unknown [id number] 2.16.84 0.1.585464.3.579.2.593 1973 Unknown [id number] 2.16.84 0.1.952053.3.579.2.593 1973 Unknown [id number] 2.16.84 0.1.441631.3.579.2.593 1973 Unknown [id number] 2.16.84 0.1.002568.3.579.2.593 1973 Unknown [id number] 2.16.84 0.1.680511.3.579.2.593 1973 Unknown [id number] 2.16.84 0.1.322485.3.579.2.593 1973 Unknown [id number] 2.16.84 0.1.078505.3.579.2.593 1973 Unknown [id number] 2.16.84 0.1.677515.3.579.2.593 1973 Unknown [id number] 2.16.84 0.1.730921.3.579.2.593 1973 Unknown [id number] 2.16.84 0.1.399677.3.579.2.593 1973 Unknown [id number] 2.16.84 0.1.058568.3.579.2.593 1973 Unknown [id number] 2.16.84 0.1.392985.3.579.2.593 1973 Unknown [id number] 2.16.84 0.1.838481.3.579.2.593 1973 Unknown [id number] 2.16.84 0.1.383522.3.579.2.593 1973 Unknown [id number] 2.16.84 0.1.544142.3.579.2.593 1973 Unknown [id number] 2.16.84 0.1.576939.3.579.2.593 1973 Unknown [id number] 2.16.84 0.1.242748.3.579.2.593 1973 Unknown [id number] 2.16.8 40.1.702847.3.579.2.1046 1973 Unknown [id number] 2.16.8 40.1.517841.3.579.2.727 1973 Unknown [id number] 2.16.84 0.1.507473.3.579.2.1259 1973 Unknown [id number] 2.16.84 0.1.291002.3.579.2.1259 1973 Unknown [id number] 2.16.84 0.1.148776.3.579.2.1259 1959 Unknown [id number] Social History Date Type Detail Facility [facility] Tobacco smoking consumption unknown [facility] Start: 08-01-2023 End: 08-08-2023 History of drug use History of drug use QZ-Tlmpxjhazmln-VGVY C Work Phone: Start: 01-05-2016 End: 08-01-2023 Tobacco smoking status Smokes tobacco daily (finding) [facility] Comment on above: 1ppd 1ppd Start: 08-08-2023 Sex Assigned At Female [facility] History of tobacco use Cigarette Smoker [facility] Start: 08-08-2023 Alcohol intake Lifetime non-d prasanna (finding) [facility] Start: 1973 Sex Assigned At Not on file N [facility] Medical Equipment Procedure Code Equipment Code Equipment Origin al Text Equipment Identifier Dates 2 EA, SubLingual , Daily, Refill(s) 0 Start: 01-05-2016 2 EA, SubLingual , Daily, Refill(s) 0 Start: 01-05-2016 2 EA, SubLingual , Daily, Refill(s) 0 Start: 01-05-2016 Functional Status Date Assessment Result Facility 11-26-2022 Functional Status N/A [facility] 07-16-2022 Functional Status N/A [facility] Functional observable [facility] [place] Mental Status Date Assessment Result Facility 12-29-2020 Cognitive functi ons [id number] [facility] Clinical Notes 12-26-2020 to [...] 10/01/2017 Document Revised: 12/14/2019 Document Reviewed: 10/01/2017 [employer] Patient Education 2020 [employer]. Follow Up Care 10/14/2022 11:11:52 With:Zachery HARKINS, Danya Rhodes URElena, URO Address: When: Unknown [facility] 09-23-2022 Hospital Discharg e instructions Patient Education [...] including vitamins, herbs, eye drops, creams, and lhgw-lhb-dpinruh medicines. Any problems you or family members [...] provider tells you to take them. Taking vaua-flw-gixclog medicines, vitamins, herbs, and supplements. General instructions [...] 08/08/2013 Document Revised: 10/08/2019 Document Reviewed: 10/08/2019 [employer] Patient Education 2019 [employer]. Follow Up Care 08/31/2022 10:49:10 With:Zachery HARKINS, CAROLEE Anderson, URO Address: When: Unknown [facility] 07-16-2022 Hospital Discharg e instructions Patient [...] nerve stimulation). For women, using a medical writer to prevent urine leaks. This is a [...] right after experiencing incontinence. General instructions Take orqq-eju-ymsghtl and prescription medicines only as told by [...] 09/29/2005 Document Revised: 09/01/2018 Document Reviewed: 12/01/2017 [employer] Patient Education 2019 [employer]. Follow Up Care 06/15/2022 11:30:52 With:Zachery HARKINS, CAROLEE Anderson, URO Address: When: Unknown [facility] 02-04-2022 Hospital Discharg e instructions [...] nerve stimulation). For women, using a medical writer to prevent urine leaks. This is a [...] right after experiencing incontinence. General instructions Take vjlq-ftb-sfdxoda and prescription medicines only as told by [...] 09/29/2005 Document Revised: 09/01/2018 Document Reviewed: 12/01/2017 [employer] Patient Education 2020 [employer]. 02/04/2022 16:23:10 Calorie Counting for Weight Loss [...] 08/22/2006 Document Revised: 05/11/2019 Document Reviewed: 07/22/2017 [employer] Patient Education 2019 [employer]. Follow Up Care 02/04/2022 13:28:46 With:Danya Bingham MD, URL, URO Address: When: Unknown [facility] 01-11-2022 Evaluation + Plan note Extrac alexander [...] and Plan Diagnosis Bowel and bladder incontinence (EPS42-JC R32, Billing Diagnosis, Medical). Incontinence without sensory awareness (VST21-VG N39.42, Working, Medical). Diagnosis Bowel and bladder incontinence (OLI40-KY R32, Billing Diagnosis, Medical). Incontinence without sensory awareness (QOK30-TO N39.42, Working, Medical). Addendum by Danya Bingham MD on January 11, 2022 10:23 EDT Post procedure diagnosis: Intrinsic sphincter deficiency, acontractile detrusor [facility]05-09-2022 Hospital Discharge instructions Patient Education [...] Up Care 01/06/2022 11:41:34 With:Danya Bingham Address: [facility] [address] [phone] Business (1) When: Unknown Comments:Call for followup appointment in 2-3 weeks With:Danya Bingham Address:Unknown When: Unknown [facility]05-04-2022 Hospital Discharge instructions Patient Education [...] program. Other places that provide vaccinations include: [facility] health clinics. Check with your local health department. [facility], where you would pay only what you can afford. To find one near you, check this website: [email or web address]/ [facility]. These are part of a [...] information Learn more about cervical cancer from: [employer]: www.acog.org/Patients/FAQs/Cervical-Cancer [employer]: www.cancer.org/cancer/cervicalcancer/ U.S. Centers for Disease [...] 09/05/2016 Document Revised: 09/23/2018 Document Reviewed: 04/19/2017 [employer] Patient Education 2020 [employer] Follow Up Care 11/20/2021 10:16:51 With:NATALIA MANNING PA-C, URL Address: [address] 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 Instead, bend at knees to forklift picker objects (more content not included)...[facility]01-26-2022 NoteThis report has been cancelled.[facility]01-17-2022 NotePROCEDURE DETAILS Postoperative Diagnosis: lumbar stenosis Surgeon: Dr. Lex Frederick Resident/Fellow/Other Wool Shearer: Chery Awan Procedure: posterior L4-L5 decompression posterior [...] the note. I personally evaluated the patient [id number] Electronic Signatures: Lex Frederick) (Signed 21-Sep-2021 11:50) [...] appropriate. 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 Exploration of spinal [...] performed and the images transferred to the [employer] system for use in intraoperative image-guided computer-assisted [...] the note. I personally evaluated the patient [id number] Electronic Signatures: Fidel Maciel (Resident)) (Signed 17-Sep-2021 [...] of Symptoms: Psychiatric Review of Symptoms: per [facility] Objective: Mental Status Exam: General: Calm and [...] the note. I personally evaluated the patient [id number] Electronic Signatures: Fidel Maciel (Resident)) (Signed 15-Sep-2021 [...] in the Neurosurgery Spine Clinic at the [facility]. She is a very pleasant 46-year-old female, who recently underwent a L1 Vertbrectomy and T6-L4 Fusion with oh on 12/26/2020 and is status post 8 [...] Ms. JESUS hollis. * Lex Frederick MD, [facility], FAANS * Director - Minimally Invasive Spine Surgery * [facility] * City Editor of Neurological Surgery * [facility] [employer] * [place], [place] * Some of this note was completed using [employer] voice recognition technology and sometimes the software misinterprets words. This may include unintended errors with respect to translation of words, typographical errors or grammar errors which may not have been identified prior to finalization of the chart note. Please take this into account when reading this note. ZV-Mgifqsbopaso-Myoon Work Phone: [phone]) 615-997604-23-2021 Reason for referral (narrative)* Reason for Referral: Patient s/p posterior bilateral L1 transpedicular decompression, posterior T7-T8, T8-T9, T9-T10, T0-T11, T11-T12, T12-L1 hutton hernandez osteotomies, Posterior T5-L4 instrumentation and fusion on 12/26 [facility] Future Appointments Appointment Date:01/07/2022 11:00:00 AM Scheduled Provider: Location:[facility] Appointment Type:Urology CALL PAT FT Appointment Date:01/11/2022 08:00:00 AM Scheduled Provider: Location:[facility] Appointment Type:Urology FT Appointment Date:01/11/2022 09:00:00 AM Scheduled Provider: Location:[facility] Appointment Type:Urology FT [facility] evaluation + Plan [facility] Evaluation + Plan note Future Appointments Appointment Date:04/06/2024 12:00:00 PM Scheduled Provider: Location:.MRI Appointment Type:MRI Spine (FT) Appointment Date:04/06/2024 12:00:00 PM Scheduled Provider: Location:[facility] Appointment Type:Surgery FT Future Scheduled Tests Radiology* MRI Spine Cervical w/o Contrast 04/06/24 * MRI Spine Lumbar w/o Contrast 04/06/24 * MRI Spine Thoracic w/o Contrast 04/06/24 [facility] Evaluation note* Neurological: onsyjhi3wwq 5/5 except hg/io4+ble 5/5incision cdiHead/Neck: Ox3, awake, alertBUE 5 prox, HG/IO4+BLE HF/KE/DF/PF/EHL 5 [facility]* Constitutional: in no acute distressSkin: Well perfusedEyes: OU 3RHead/Neck: atraumatic, normocephal icRespiratory/Thorax: airway intact, good chest expansionCardiovascular: normal rate, regular rhythmGastrointestinal: non-tenderNeurological: NAD, A&Zm1Vusodhf Nerves II-XII: PERRL, EOMI, Face symmetric, Facial [...] available for this section [facility] Discharge instructions* Activity:activity as tolerated. May [...] Certification:Home Care Services Needed: yesSkilled Disciplines Ordered: RN/ASSISTANT PROFESSOR OF GEOGRAPHY, PT, OTFace to Face Encounter Completed: yesDate of Encounter: [id number] Necessity for Homecare (based on clinical findings): [...] washing dishes, & loading the dryer or assembler dielectric heater until cleared by MD. * Wound Care:Inspect [...] - Neurosurgeon:Physician/Dept/Service: NeurosurgeonDr Josephuled Date/Time: 08-Jan-2021 10:40Location: [facility], [facility] [address] [place], [place] Number: [phone]: 2 week postop/wound check visit; Bring Insurance Card and Photo ID [facility] No data available for this section [facility] progress note No data available for this section [facility] reason for referral (narrative) , urinary incontinence, neurogenic bladder, open bladder neck, possible SP tube placement Referred by: Zachery HARKINS, Danya Rhodes [facility] Summary Purpose Family History No Family History [...] section and content) DATE CREATED AUTHOR 06/20/2019 [facility] DATE CREATED AUTHOR AUTHOR'S ORGANIZ ATION 06/20/2019 [facility] DATE CREATED AUTHOR AUTHOR'S ORGANIZ ATION 07/26/2019 [facility] DATE CREATED AUTHOR AUTHOR'S ORGANIZ ATION 12/29/2020 [facility] DATE CREATED AUTHOR AUTHOR'S ORGANIZ ATION 09/16/2021 [facility] DATE CREATED AUTHOR AUTHOR'S ORGANIZ ATION 11/25/2021 [facility] DATE CREATED AUTHOR AUTHOR'S ORGANIZ ATION 12/10/2021 [facility] DATE CREATED AUTHOR AUTHOR'S ORGANIZ ATION 08/06/2022 [facility] DATE CREATED AUTHOR AUTHOR'S ORGANIZ ATION 01/17/2023 [facility] DATE CREATED AUTHOR AUTHOR'S ORGANIZ ATION 06/09/2023 [facility] DATE CREATED AUTHOR AUTHOR'S ORGANIZ ATION 12/29/20[address] [facility] DATE CREATED AUTHOR AUTHOR'S ORGANIZ ATION 05/15/2024 [facility] dical Specialists EPIC <item><item> Privacy Markings (unrecogniz ed section and [...] Care Team (unrecognized sect ion and content) Hand Twister Relationship Specialty Start Date End Date Shaikh [...] BE BASED ON THE PRIMARY CLINICAL RECORDS. [email or web address] [facility]. provides no warranty or guarantee of the accuracy or completeness of information in this document.
== END 2024-05-31 11:40 | disposition home or self-care (01) ==
PROVIDERS: Emergency Provider Emergency Medicine; PCP Internal Medicine
DX: Z46.6 Encounter for fitting and adjustment of urinary device (principal); F17.200 Nicotine dependence, unspecified, uncomplicated
CPT/HCPCS: 51702; 99284

== ENCOUNTER 2024-07-12 14:10 | Emergency (ER) | payer BC, MEDICAID, SELFPAY ==
[2024-07-12 14:20] VITALS: BP 162/76; PULSE 87; TEMP 36.8; O2SAT 97; BMI 37.1
--- NOTE | 2024-07-12 14:36 | ED_ITS ---
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 States it fell out today. She also reports nausea and is requesting Phenergan. She was able to go to her suboxone appointment this morning. Denies fever, chills, abd pain, flank pain. She appears in no acute distress. Related Data Home Medications ?Medication ?Instructions ?Recorded ?Confirmed buprenorphine 8 mg-naloxone 2 mg 2.5 film sublingual Q24H 03/01/23 05/06/24 sublingual film cyclobenzaprine 10 mg tablet 10 mg PO Q8H 03/01/23 05/06/24 diazepam 5 mg tablet 5 mg PO Q8H PRN anxiety 03/30/23 05/06/24 furosemide 40 mg tablet 40 mg PO DAILY 03/30/23 05/06/24 gabapentin 800 mg tablet 800 mg PO TID 03/30/23 05/06/24 oxybutynin chloride 15 mg 15 mg PO DAILY 03/30/23 05/06/24 tablet,extended release 24 hr potassium bicarbonate-citric acid 20 meq PO BID 03/30/23 05/06/24 20 mEq effervescent tablet (Effer-K) tizanidine 4 mg tablet 4 mg PO Q8H PRN muscle spasticity 03/30/23 05/06/24 zolpidem 12.5 mg tablet,extended 12.5 mg PO DAILY 03/30/23 05/06/24 release,multiphase fluoxetine 10 mg capsule 10 mg PO DAILY 05/06/24 05/06/24 Previous Rx's ?Medication ?Instructions ?Recorded ondansetron 4 mg disintegrating 4 mg PO Q8H PRN nausea and 05/07/24 tablet vomiting 0 days #30 tabs nitrofurantoin 100 mg PO Q12H 7 days #14 caps 07/12/24 monohydrate/macrocrystals 100 mg capsule (Macrobid) Allergies Allergy/AdvReac Type Severity Reaction Status Date / Time codeine Allergy Severe rash Verified 05/06/24 20:33 Penicillins Allergy Severe Anaphylaxis Verified 05/06/24 20:33 quetiapine (From Seroquel) Allergy Severe Seizure Verified 05/06/24 20:33 Review of Systems ROS Constitutional Denies: fever or chills Cardiovascular Denies: chest pain Respiratory Denies: shortness of breath Gastrointestinal Reports: nausea; Denies: abdominal pain, vomiting or diarrhea Genitourinary Denies: painful urination or blood in urine Integumentary/Breast Denies: rash Neurological Denies: headache, numbness in extremities or weakness in extremities PFSH PFSH Social History Smoking status: Current every day smoker Little interest or pleasure in doing things: not at all Feeling down, depressed, or hopeless: not at all Exam Constitutional Vital Signs, click to edit/add: Last Vital Signs Temp 98.2 F 07/12/24 14:20 Pulse 87 07/12/24 14:20 Resp 18 07/12/24 14:20 BP 136/78 07/12/24 15:41 Pulse Ox 97 07/12/24 14:20 O2 Del Method Room Air 07/12/24 14:20 Common normals: no apparent distress and oriented x3 Eye Common normals: conjunctivae normal Neck & C-Spine Common normals: supple Respiratory Effort & inspection: able to speak in complete sentences and symmetric chest movement Cardio Common normals: regular rate GI Common normals: Normal to inspection, nondistended, normoactive bowel sounds present, soft to palpation and non-tender Common normals: no CVA tenderness Neuro Common normals: oriented x3 and moves all extremities Sensorium/orientation: awake and alert Speech: speech normal Course Vital Signs Vital signs: Vital Signs Temperature 98.2 F 07/12/24 14:20 Pulse Rate 87 07/12/24 14:20 Respiratory Rate 18 07/12/24 14:20 Blood Pressure 162/76 H 07/12/24 14:20 Pulse Oximetry 97 07/12/24 14:20 Oxygen Delivery Method Room Air 07/12/24 14:20 Temperature 98.2 F 07/12/24 14:20 Pulse Rate 87 07/12/24 14:20 Respiratory Rate 18 07/12/24 14:20 Blood Pressure 136/78 07/12/24 15:41 Pulse Oximetry 97 07/12/24 14:20 Oxygen Delivery Method Room Air 07/12/24 14:20 MDM - Female Genitourinary MDM Narrative Medical decision making narrative: The patient's Alvares catheter was replaced. Foul odor was noted to the urine. Urinalysis showed evidence of infection; culture was pending. A prescription was provided for Macrobid based on the most recent culture results. Follow up with pcp for a recheck, further evaluation and treatment. Medical Records Attestation: I reviewed the patient's medical records. Lab Data Attestation: I reviewed the patient's lab results. Labs: Lab Results 07/12/24 Range/Units 14:30 Urine Color Lt. yellow (YELLOW) Urine Clarity Cloudy A (CLEAR) Urine pH 8.5 (5.0-9.0) Ur Specific Humphrey 1.020 (1.005-1.025) Urine Protein 30 A (NEG/TRACE) mg/dL Urine Glucose (UA) Negative (NEGATIVE) mg/dL Urine Ketones Negative (NEGATIVE) mg/dL Urine Occult Blood Moderate A (NEGATIVE) Urine Nitrite Positive A (NEGATIVE) Urine Bilirubin Small A (NEGATIVE) Urine Urobilinogen >=8.0 (0.2-1.0) EU/dL Ur Leukocyte Esterase Large A (NEGATIVE) Urine RBC 10-20 A (0-2) #/HPF Urine WBC >100 A (NONE SEEN) #/HPF Ur Squamous Epith Cells Few A (NONE/RARE) #/LPF Urine Crystals Seen A (None Seen) #/HPF Triple Phos Crystals Moderate Urine Bacteria Large A (NONE SEEN) #/HPF Urine Casts None seen (NONE SEEN) #/LPF Urine Mucus None seen (NONE SEEN) Ur Culture Indicated? Yes Discharge Plan Discharge Chief Complaint: Urogenital-Female Clinical Impression: Alvares catheter problem, UTI (urinary tract infection) Patient Disposition: Home, Self-Care Time of Disposition Decision: 15:32 Condition: Good Mode of Transportation: Private Vehicle Prescriptions / Home Meds: New nitrofurantoin monohyd/m-cryst [Macrobid] 100 mg capsule 100 mg PO Q12H 7 Days Qty: 14 0RF Rx Instructions: must administer with a meal/food No Action diazepam 5 mg tablet 5 mg PO Q8H PRN (Reason: anxiety) furosemide 40 mg tablet 40 mg PO DAILY gabapentin 800 mg tablet 800 mg PO TID oxybutynin chloride 15 mg tablet extended release 24hr 15 mg PO DAILY Effer-K 20 mEq tablet, effervescent 20 meq PO BID tizanidine 4 mg tablet 4 mg PO Q8H PRN (Reason: muscle spasticity) zolpidem 12.5 mg tablet,ext release multiphase 12.5 mg PO DAILY Rx Instructions: HS fluoxetine 10 mg capsule 10 mg PO DAILY ondansetron 4 mg tablet,disintegrating 4 mg PO Q8H PRN (Reason: nausea and vomiting) Qty: 30 0RF buprenorphine-naloxone 8-2 mg film 2.5 film sublingual Q24H cyclobenzaprine 10 mg tablet 10 mg PO Q8H Print Language: Malagasy Instructions: Alvares Catheter Placement and Care (ED), Catheter-associated Urinary Tract Infection (ED) Additional Instructions: Return to the ER for new or worsening symptoms. Referrals: Shaikh Obrien MD [Primary Care Provider] - 1 week Discharge Date/Time: 07/12/24 15:43
--- NOTE | 2024-07-12 14:36 | PC.NURSE ---
PT STATES CHRONIC SMITH CATH FELL OUT AT HOME. 14 F SMITH PLACED AT BEDSIDE. URINE DARK YELLOW WITH SEDIMENT
[2024-07-12] MEDS: PROMETHAZINE HCL 25 MG TABLET PO (14:44)
[2024-07-12 15:24] LABS: Bilirubin Urine SMALL (NEGATIVE); Blood Urine MODERATE (NEGATIVE); Clarity Urine CLOUDY (CLEAR); Color Urine LT. YELLOW (YELLOW); Glucose Urine UA NEGATIVE (NEGATIVE); Ketones Urine NEGATIVE (NEGATIVE); Leukocyte Esterase Urine LARGE (NEGATIVE); Nitrite Urine POSITIVE (NEGATIVE); Protein Urine 30 mg/dL (NEG/TRACE); Urobilinogen Urine >=8.0 EU/dL (0.2-1.0); pH Urine 8.5 (5.0-9.0)
[2024-07-12 15:26] LABS: Urine Microscopic Indicated YES
[2024-07-12 15:30] LABS: Bacteria Urine LARGE #/HPF (NONE SEEN); WBC Urine >100 #/HPF (NONE SEEN)
[2024-07-12 15:31] LABS: Cast Seen? NONE SEEN #/LPF (NONE SEEN); Crystals Seen? Seen #/HPF (None Seen); Mucus Urine NONE SEEN (NONE SEEN); Squamous Epithelial Cell Urine FEW #/LPF (NONE/RARE); Triple Phosphate Crystal Urine MODERATE; Urine Culture Indicated YES
[2024-07-12 15:41] VITALS: BP 136/78
== END 2024-07-12 15:43 | disposition home or self-care (01) ==
PROVIDERS: Nurse Practitioner Family; Emergency Provider Emergency Medicine; PCP Internal Medicine
DX: N39.0 Urinary tract infection, site not specified (principal); Z46.6 Encounter for fitting and adjustment of urinary device; F17.200 Nicotine dependence, unspecified, uncomplicated
CPT/HCPCS: 51702; 81001; 87086; 87150; 87186; 99284; Q0169

== ENCOUNTER 2024-07-15 05:11 | Emergency (ER) | payer MEDICAID, SELFPAY ==
[2024-07-15 05:11] VITALS: BP 157/92
[2024-07-15 05:13] VITALS: BP 157/92; PULSE 85; TEMP 36.7; O2SAT 95; BMI 34.8
--- NOTE | 2024-07-15 05:13 | ECG_ITS ---
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
--- NOTE | 2024-07-15 05:13 | XR_ITS ---
The [address] [address] Patient Name: MORALES LEE MRN: [id number] date: 1975 Sex: F Assigned Patient Location: ER Current Patient Location: ER Accession/Order Number: [id number] Exam Date: 07/15/2024 06:15 Report Date: 07/15/2024 07:32 At the request of: ROSANA COLUNGA Procedure: XR acute abdomen series EXAM: XR acute abdomen series , 07/15/2024 HISTORY: vomiting, abd pain COMPARISON: X-ray of the abdomen from 05/06/2024 TECHNIQUE: Abdominal and pelvic acute series in supine and upright position, including chest x-ray FINDINGS: No free air in the diaphragm. No air-fluid levels are seen to suggest bowel obstruction. Moderate stool in the colon. Hardware seen throughout the spine and sacroiliac joints. Postoperative clips from cholecystectomy. Cardiac silhouette within normal limits. The lungs and costophrenic angles are clear. No hilar or mediastinal enlargement. No acute osseous findings. XR/XR acute abdomen series IMPRESSION: No evidence of bowel obstruction or perforation. Clear lungs. Electronically authenticated by: HECTOR DAVID Date: 07/15/2024 07:32
--- OUTSIDE RECORDS SUMMARY | 2024-07-15 05:19 | XMS_ITS | CCD ---
Author Organization [facility] Care Team Providers Care Monomer Purification Operator Name Role Phone Required, No Pcp Unavailable Unavailable Lex Frederick Unavailable None, No PCP Unavailable Unavailable Unavailable Unavailable SHAIKH OBRIEN Primary Care Physician Yony Aguirre Unavailable Unavailable Neurosurgery Unavailable Unavailable OTONIEL, Dr. LEX HICKMAN Admitting Unava ilable OTONIEL, Dr. LEX HICKMAN Attending Unava ilable Patient, Unavailable Referring Unavailable Timothy, Dr. Bhakta Attending Unavailable FAWWAD, MENDOSA H Primary Care Unavailable PÉREZ PATINO Attending Unavailable PÉREZ PATINO Admitting Unavailable JON, DR ABHINAV Livingston Attending Unavailabl e FAKERRI, MENDOSA H Primary Care Unavailable JON, DR ABHINAV Livingston Admitting Unavailabl e JON, DR ABHINAV Livingston Consulting Unavailabl e URIAH, DR CLIF Santana Admitting Unavailable URIAH, DR [...] Admitting Unavailable VETO ., IVON Attending Unavailable [facility] Primary Care Unavailable PATRICKDEBORAH SHARIF Consulting Unavailable [facility] Primary Care Unavailable REINECK, DR ABHINAV Livingston Admitting Unavailabl e REINECK, DR ABHINAV Livingston Consulting Unavailabl e REINECK, DR ABHINAV Livingston Attending Unavailabl e HAY ., DR LOW Admitting Unavailable [facility] Primary Care Unavailable HAY ., DR LOW Attending Unavailable ZIEBER, DR ENRIQUE Santana Consulting Unavailable HAY ., DR LOW Consulting Unavailable LUE ., DANYA M Admitting Unavailable LUE ., DANYA M Attending Unavailable PAVMANE, BILL Primary Care Unavailable [facility] Primary Care Unavailable LUE ., DANYA M Admitting Unavailable LUE ., DANYA M Consulting Unavailable LUE ., DANYA M Attending Unavailable CANDICE MATTA Consulting Unava ilRACHEL Kirk Consulting Unavailable DIAB ., KYRA Admitting Unavailable [facility] Primary Care Unavailable DIAB ., KYRA Attending Unavailable GRECHNY ., BONITA HULL Consulting Unavailabl e [facility] Primary Care Unavailable LUE ., DANYA M Admitting Unavailable LUE ., DANYA M Consulting Unavailable LUE ., DANYA M Attending Unavailable PAY ., DR RODRIGUEZ Admitting Unavailable PAY ., DR RODRIGUEZ Consulting Unavailable [facility] Primary Care Unavailable PAY ., DR RODRIGUEZ Attending Unavailable [facility] Primary Care Unavailable REINECK, DR ABIHNAV Livingston Admitting Unavailabl e REINECK, DR ABHINAV Livingston Consulting Unavailabl e REINECK, DR ABHINAV Livingston Attending Unavailabl e KORIN STANLEY Consulting Unavailable Dr. Lex Frederick Attending Unava ollie Obrien MD, [facility] Primary Care Provider [facility] Primary Care Unavailable Lue, Danya M. Attending Unavailable SHAIKH OBRIEN Attending Unavailable SHAIKH OBRIEN Attending Unavailable GENNY HILARIO Attending Unavailabl e Micah HARKINS, [facility] Primary Care Provider Allergies Allergy Classification Reported Allergen(s) Allergy Type Date of Onset Reaction(s) Facility Opioid Agonists (1 source) Codeine Drug Allergy Unknown [facility] Penicillins (antibiotic) (1 source) Penicillin Drug Allergy Unknown [facility] QUEtiapine (1 source) QUEtiapine Drug Allergy Unknown [facility] (20 sources) Codeine; Translations: [Codeine] Drug Allergy 6 Hives, Facial Swelling [facility] Work Phone: (20 sources) Penicillins; Translations: [Penicillins] Allergy to drug (finding) Hives, Unknown [facility] Work Phone: (10 sources) Promethazine; Translations: [promethazine] Drug Allergy [facility] (1 source) QUEtiapine Drug Allergy Seizures [facility] (2 sources) Codeine Drug Allergy 3 [facility] Repository (3 sources) gabapentin; Translations: [Neurontin] Drug Allergy [facility] (1 source) Levamisole Drug Allergy [facility] (1 source) Morphine Drug Allergy 0 [facility] (2 sources) Penicillins Drug allergy (disorder) 3 [facility] (1 source) QUEtiapine Drug Allergy 3 [facility] (1 source) Penicillins Drug Allergy 3 Hives, GI intolerance [facility] (1 source) QUEtiapine Drug Allergy 3 Unknown [facility] (1 source) Penicillin Drug Allergy 6 Facial Swelling [facility] (1 source) Phenergan Plain Propensity to adverse reactions to drug 6 Swelling, Facial Swelling [facility] Medications Current Medications Medication Drug Class(es) Dates [...] q12hr, # 2 cap(s), Refills(s) 0, [id number], cm, 07/16/22 10:58:00 EST, Height/Length Dosing, [...] # 2 tab(s), Refills(s) 0, [facility], 156, cm, 01/06/22 10:53:00 EDT, Height/Length [...] Refills(s) 0 Start Date: 01/05/16 Status: Ordered Start: 04-17-2015 take 1 tablet by marlen th every eight hours as needed for anxiety diazepam (VALIUM) 2 mg tablet Take 2 mg by mouth every 8 (eight) hours as needed for anxiety or muscle spasms. 04/17/2015 Active Valium 10 mg ora l tablet ; 1 tab(s) oral Quantity: 0 Refills: 0 Ordered: 05-Dec-2020 Carole Mcdaniel Status: Discontinued Generic Substitution Allowed Valium ; 1 tab(s ) oral Quantity: 0 Refills: 0 Ordered: 05-Dec-2020 Carole Mcdaniel Status: Discontinued Generic Substitution Allowed diclofenac sodium 50 mg delayed release oral tablet (18 sources) Nonsteroidal Anti-inflammatory Drug Start: 01-01-2021 diclofenac sodium 50 mg oral delayed release tablet ; 1 tab(s) orally 3 times a day-DO NOT RESTART THIS MEDICATION UNTIL CLEARED BY DR. FREDERICK Quantity: 0 Refills: 0 Ordered: 01-Jan-2021 Ambrocio Izaguirre Start: 01-Jan-2021 Generic Substitution Allowed Start: 10-28-2020 Voltaren 1 % G EL Quantity: 0 Refills: 0 Ordered: 28-Oct-2020 DO Start : 28-Oct-2020 Active Start: 04-17-2015 diclofenac sod ium (SOLARAZE) 3 % gel Apply 1 application topically 3 (three) times a day. 04/17/2015 Active diclofenac sodiu m (Voltaren Arthritis Pain) [...] Allowed docusate sodium 50 mg / sennosides, fdc 8.6 mg oral tablet (2 sources) Start: [...] edema 0 Active take 2 tablets by [facility] once daily as needed furosemide 20 mg oral tablet ; 2 tab(s) orally once a day, As Needed Quantity: 0 Refills: 0 Ordered: 15-Sep-2021 Enrique Egan Generic Substitution Allowed take 1 tablet by [facility] once daily as needed furosemide 20 mg [...] Start: 01-05-2016 take 2 capsules by [facility] three times daily Neurontin 100 mg Cap 200 mg = 2 cap(s), Oral, TID, Refills(s) 0 Start Date: 01/05/16 Status: Ordered Start: 04-17-2015 take [address] [facility] three times daily gabapentin (NEURONTIN) 300 mg capsule Take 300 mg by mouth 3 (three) times a day. 04/17/2015 [facility] gab[facility]entin 800 mg oral tablet ; 1 tab(s) oral 3 times a day Quantity: 0 Refills: 0 Ordered: 12-Dec-2020 Carole Mcdaniel Generic Substitution Allowed Geritol oral tablet (9 sources) Start: 10-30-2011 Geritol oral tablet 1 tab(s), Oral, Daily, 90 tab(s), Refill(s) 0 Start Date: 10/30/11 Status: Ordered hydroCHLOROthiazide 12.5 mg oral tablet (10 sources) Thiazide Diuretic Start: 01-05-2016 take 12.5 mg by mouth once daily hydrochlorothiazide 12.5 mg, Oral, Daily, Refills(s) 0 Start Date: 01/05/16 Status: Ordered Start: 04-17-2015 take 1 capsule by [facility] once daily hydrochlorothiazide (MICROZIDE) 12.5 mg capsule Take 12.5 mg by mouth daily. 04/17/2015 Active LEFT AFO (1 source) Start: 09-23-2021 LEFT AFO ; -Or thotics to fitICD 10: M21.37 Quantity: 1 Refills: [...] Daily, # 30 tab(s), Refills(s) 3, Pharmacy: [facility] [address] [facility], 156, cm, 02/04/22 15:47:00 EDT, Height/Length Dosing, 78, kg, 02/04/22 15:47:00 EDT, Weight Dosing Start Date: 02/25/22 Status: Ordered nystatin 100 unt/mg topical powder (1 source) Polyene Antifungal Start: 03-07-2023 Nyamyc 196387 UNIT/GM powder Apply 1 application topically in [...] Daily, # 30 tab(s), Refills(s) 11, Pharmacy: [facility] #[id number], 156, cm, 07/16/22 10:58:00 EST, Height/Length Dosing, 78, kg, 07/16/22 10:58:00 EST, Weight Dosing Start Date: 10/04/22 Status: Ordered Start: 07-16-2022 take 1 tablet by marlen th once daily oxybutynin 10 mg ER Tab 10 mg = 1 tab(s), Oral, Daily, # 30 tab(s), Refills(s) 11, Pharmacy: [facility] #[id number], 156, cm, 07/16/22 10:58:00 EST, Height/Length Dosing, 78, kg, 07/16/22 10:58:00 EST, Weight Dosing Start Date: 07/16/22 Status: Ordered Start: 03-10-2022 take 1 tablet by marlen th once daily oxybutynin 10 mg ER Tab 10 mg = 1 tab(s), Oral, Daily, # 30 tab(s), Refills(s) 3, Pharmacy: [id number] [address] [facility], 156, cm, 02/04/22 15:47:00 EDT, Height/Length [...] 07-Jan-2021 Generic Substitution Allowed polyethylene glycol 3350 46638 mg powder for oral solution (3 sources) Osmotic Laxative Start: 09-30-2021 polyethylene glycol 3350 oral powder for reconstitution ; 17 gram(s) orally 3 times a day - available over the counter at any pharmacy Quantity: 0 Refills: 0 Ordered: 30-Sep-2021 Concetta Shi Start: 30-Sep-2021 Generic Substitution Allowed Start: 04-17-2015 polyethylene g lycol (MIRALAX) 17 gram packet Take 17 g by mouth daily. 04/17/2015 Active promethazine hydrochloride 12.5 mg oral tablet (2 [...] Daily, # 30 cap(s), Refills(s) 0, Pharmacy: [address], 156, cm, 01/07/22 13:43:00 EDT, Height/Length Dosing, 78, kg, 01/06/22 10:53:00 EDT, Weight Dosing Start Date: 01/28/22 Status: Ordered zolpidem tartrate 12.5 mg extended release oral tablet (20 sources) gamma-Aminobutyric Acid-ergic Agonist Start: 09-30-2021 take 1 tablet by mouth once at bedtime zolpidem 10 mg oral tablet ; 1 tab(s) orally once (at bedtime) Quantity: 0 Refills: 0 Ordered: 30-Sep-2021 YuridiaSabiha tsarrie Start: 30-Sep-2021 Status: Discontinued Generic Substitution Allowed Start: 10-28-2020 Ambien CR 12.5 MG Oral Tablet Extended Release Quantity: 0 Refills: 0 Ordered: 28-Oct-2020 DO Start : 28-Oct-2020 Active Start: 04-17-2015 End: 11-10-2023 take 1 tablet by mouth [...] mg / naloxone 2 mg sublingual film (20 sources) Partial Opioid Agonist, Opioid Antagonist Start: 10-28-2020 Suboxone 8-2 MG Sublingual Film Quantity: 0 Refills: 0 Ordered: 28-Oct-2020 DO Start : 28-Oct-2020 Active Start: 04-17-2015 Suboxone 8 mg- 2 mg sublingual film [...] 28-Oct-2020 DO Start : 28-Oct-2020 Active Start: 04-17-2015 take 1 tablet by marlen th three [...] 28-Oct-2020 DO Start : 28-Oct-2020 Active Start: 04-17-2015 take 1 tablet by marlen th once [...] daily Quantity: 1 Refills: 0 Ordered: 12-Dec-2020 Westley GUTIERREZNKeciaROSENDOVanessa Start : 12-Dec-2020 Active 24 hr nicotine [...] food., # 2 cap(s), Refills(s) 0, Pharmacy: [facility] #[id number], 156, cm, 11/26/22 8:15:00 EDT, Height/Length Dosing, [...] Discontinued Generic Substitution Allowed polyethylene glycol 3350 285169 mg / potassium chloride 2970 mg / sodium bicarbonate 6740 mg / sodium chloride 5860 mg / sodium sulfate 18074 mg powder for oral solution (8 sources) Osmotic Laxative Start: 09-29-2021 PEG-3350/Elec trolytes 236 GM Oral Solution Reconstituted TAKE DIRECTED. Quantity: 1 Refills: 0 Ordered: 29-Sep-2021 Narsa Gautam MD Start : 29-Sep-2021 Active Prior [...] spine] Episodic Other aftercare (2 sources) Other intermediate card tender (current) drug therapy; Translations: [Other half-way (current) [...] Onset: 04-01-2022 Episodic Other nervous system disorders (12 sources) Spinal cord compression; Translations: [Unspecified disease of spinal cord] Onset: 12-08-2016 12-08-2016 Chronic Other nervous system disorders (2 sources) [...] Onset: 10-02-2021 Chronic Other nervous system disorders (1 source) Spinal cord disease; Translations: [Disease of spinal cord, unspecified] Onset: 12-08-2016 12-08-2016 Chronic Other nervous system disorders (11 sources) [...] Spondylosis; intervertebral disc disorders; other back problems (13 sources) Thoracic myelopathy; 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#1.00CD:127 Normal [facility] ED Note-Physician [id number]#1.00CD:127 Normal [facility] Lab Reportson 01-22-2023 Lab Reports [id number]#1.00CD:127 Normal [facility] Patient Correspondenceon Patient Correspondence [id number]#[id number]:127 Normal [facility] CULTURE URINEon 01-16-2023 CULTURE URINE Isolate 1 [...] R F Nitrofurantoin <=16 S F Normal [facility] Comment on above: Performed By: #### U MICRO, ERUR #### [facility] [address] [place] [address] Dr. Alfredo Lizama CBC AUTO DIFFon 01-13-2023 BASO # 0.1 103/ul Normal 0.0-0.1 [facility] Comment on above: Performed By: #### U MICRO, ERUR #### [facility] [address] [place] [address] Dr. Alfredo Lizama Basophils/100 WBC (Bld) 0.7 % Normal 0.2-2.0 [facility] Comment on above: Performed By: #### U MICRO, ERUR #### [facility] [address] [place] [address] Dr. Alfredo Lizama EO # 0.3 103/ul Normal 0.0-0.7 [facility] Comment on above: Performed By: #### U MICRO, ERUR #### [facility] [address] [place] [address] Dr. Alfredo Lizama Eosinophils/100 WBC (Bld) 3.2 % Normal 0.9-7.0 [facility] Comment on above: Performed By: #### U MICRO, ERUR #### [facility] [address] [place] [address] Dr. Alfredo Lizama Erythrocyte distribution width (RBC) [Ratio] 13.0 % Normal 11.0-15.0 [facility] Comment on above: Performed By: #### U MICRO, ERUR #### [facility] [address] [place] [address] Dr. Alfredo Lizama Hematocrit (Bld) [Volume fraction] 43.2 % Normal 36.0-48.0 [facility] Comment on above: Performed By: #### U MICRO, ERUR #### [facility] [address] [place] [address] Dr. Alfredo Lizama Hemoglobin (Bld) [Mass/Vol] 14.1 g/dL Normal 12.0-16.0 [facility] Comment on above: Performed By: #### U MICRO, ERUR #### [facility] [address] [place] [address] Dr. Alfredo Lizama IG # 0.02 10e3/ul Normal 0.00-0.03 [facility] Comment on above: Performed By: #### U MICRO, ERUR #### [facility] [address] [place] [address] Dr. Alfredo Lizama IG % 0.2 % Normal 0.0-0.5 [facility] Comment on above: Performed By: #### U MICRO, ERUR #### [facility] [address] [place] [address] Dr. Alfredo Lizama LYMPH # 3.0 103/ul Normal 1.2-3.8 [facility] Comment on above: Performed By: #### U MICRO, ERUR #### [facility] [address] [place] [address] Dr. Alfredo Lizama Lymphocytes/100 WBC (Bld) 35.6 % Normal 20.5-60.0 [facility] Comment on above: Performed By: #### U MICRO, ERUR #### [facility] [address] [place] [address] Dr. Alfredo Lizama MANUAL DIFF REQ NO Normal [facility] Comment on above: Performed By: #### U MICRO, ERUR #### [facility] [address] [place] [address] Dr. Alfredo Lizama MCH (RBC) [Entitic mass] 29.4 pg Normal 26.7-34.0 [facility] Comment on above: Performed By: #### U MICRO, ERUR #### [facility] [address] [place] [address] Dr. Alfredo Lizama MCHC (RBC) [Mass/Vol] 32.6 g/dL Normal 29.9-35.2 [facility] Comment on above: Performed By: #### U MICRO, ERUR #### [facility] [address] [place] [address] Dr. Alfredo Lizama MCV (RBC) [Entitic vol] 90.0 fL Normal 81.0-99.0 [facility] Comment on above: Performed By: #### U MICRO, ERUR #### [facility] [address] [place] [address] Dr. Alfredo Lizama MONO # 0.4 103/ul Normal 0.3-0.8 [facility] Comment on above: Performed By: #### U MICRO, ERUR #### [facility] [address] [place] [address] Dr. Alfredo Lizama Monocytes/100 WBC (Bld) 4.8 % Normal 1.7-12.0 [facility] Comment on above: Performed By: #### U MICRO, ERUR #### [facility] [address] [place] [address] Dr. Alfredo Lizama NEUT # 4.7 103/ul Normal 1.4-6.5 [facility] Comment on above: Performed By: #### U MICRO, ERUR #### [facility] [address] [place] [address] Dr. Alfredo Lizama Neutrophils/100 WBC (Bld) 55.5 % Normal 43.0-75.0 [facility] Comment on above: Performed By: #### U MICRO, ERUR #### [facility] [address] [place] [address] Dr. Alfredo Lizama Platelet mean volume (Bld) [Entitic vol] 9.5 fL Normal 9.5-13.5 [facility] Comment on above: Performed By: #### U MICRO, ERUR #### [facility] [address] [place] [address] Dr. Alfredo Lizama PLT 267 103/ul Normal 150-450 [facility] Comment on above: Performed By: #### U MICRO, ERUR #### [facility] [address] [place] [address] Dr. Alfredo Lizama RBC 4.80 106/ul Normal 4.20-5.40 [facility] Comment on above: Performed By: #### U MICRO, ERUR #### [facility] [address] [place] [address] Dr. Alfredo Lizama WBC 8.5 103/ul Normal 4.0-11.0 [facility] Comment on above: Performed By: #### U MICRO, ERUR #### [facility] [address] [place] [address] Dr. Alfredo Lizama ER URINE PROFILEon 3 Bilirubin Ql (U) Negative Normal NEGATIVE [facility] Comment on above: Performed By: #### Jacque ESTRADA UMICRO #### [facility] [address] [place] [address] Dr. Alfredo Lizama Clarity (U) CLOUDY Abnormal CLEAR [facility] Comment on above: Performed By: #### E RUR UMICRO #### [facility] [address] [place] [address] Dr. Alfredo Lizama Color (U) YELLOW Normal YELLOW [facility] Comment on above: Performed By: #### E RUR UMICRO #### [facility] [address] [place] [address] Dr. Alfredo Lizama ERUAHD A micrscopic examina tion will be performed if indicated. Normal [facility] Comment on above: Performed By: #### CHINMAY CHAVESRO #### [facility] [address] [place] [address] Dr. Alfredo Lizama Glucose Ql (U) Negative Normal NEGATIVE [facility] Comment on above: Performed By: #### CHINMAY CHAVESRO #### [facility] [address] [place] [address] Dr. Alfredo Lizama Hemoglobin Ql (U) MODERATE Abnormal NEGATIVE [facility] Comment on above: Performed By: #### Jacque ESTRADA UMICRO #### [facility] [address] [place] [address] Dr. Alfredo Lizama Ketones Ql (U) TRACE Abnormal NEGATIVE [facility] Comment on above: Performed By: #### CHINMAY CHAVESRO #### [facility] [address] [place] [address] Dr. Alfredo Lizama LEUKOCYTES SMALL Abnormal NEGATIVE [facility] Comment on above: Performed By: #### CHINMAY CHAVESRO #### [facility] [address] [place] [address] Dr. Alfredo Lizama Nitrite Ql (U) Negative Normal NEGATIVE [facility] Comment on above: Performed By: #### CHINMAY CHAVESRO #### [facility] [address] [place] [address] Dr. Alfredo Lizama pH (U) 8.0 [pH] Normal 5-9 [facility] Comment on above: Performed By: #### CHINMAY CHAVESRO #### [facility] [address] [place] [address] Dr. Alfredo Lizama Protein (U) [Mass/Vol] 100 mg/dL Abnormal NEGATIVE/ TRACE [facility] Comment on above: Performed By: #### CHINMAY CHAVESRO #### [facility] [address] [place] [address] Dr. Alfredo Lizama SPEC GRAVITY 1.015 Normal 1.005-<=1.0 25 [facility] Comment on above: Performed By: #### CHINMAY CHAVESRO #### [facility] [address] [place] [address] Dr. Alfredo Lizama UR MICRO IND INDICATED Normal [facility] Comment on above: Performed By: #### E LINDA ESTRADA #### [facility] [address] [place] [address] Dr. Alfredo Lizama Urobilinogen Qn (U) 1.0 {Tesha'U}/dL Normal 0.2 - 1. 0 [facility] Comment on above: Performed By: #### LINDA CHAVES #### [facility] [address] [place] [address] Dr. Alfredo Lizama PROF CHEM 8 (BAS METB)on Anion gap [Moles/Vol] 8.4 mmol/L Normal [facility] Comment on above: Performed By: #### U MICRO, ERUR #### [facility] [address] [place] [address] Dr. Alfredo Lizama Calcium [Mass/Vol] 8.7 mg/dL Normal 8.5-10.1 [facility] Comment on above: Performed By: #### U MICRO, ERUR #### [facility] [address] [place] [address] Dr. Alfredo Lizama Chloride [Moles/Vol] 107 mmol/L Normal 98-107 [facility] Comment on above: Performed By: #### U MICRO, ERUR #### [facility] [address] [place] [address] Dr. Alfredo Lizama CO2 [Moles/Vol] 28.3 mmol/L Normal 21.0-32.0 [facility] Comment on above: Performed By: #### U MICRO, ERUR #### [facility] [address] [place] [address] Dr. Alfredo Lizama Creatinine [Mass/Vol] 0.70 mg/dL Normal 0.55-1.02 [facility] Comment on above: Performed By: #### U MICRO, ERUR #### [facility] [address] [place] [address] Dr. Alfredo Lizama EGFR-AF GRENADIAN >60 Normal >=60 [facility] Comment on above: Performed By: #### U MICRO, ERUR #### [facility] [address] [address] [address] Alfredo Lizama EGFR-NON AF GRENADIAN >60 Normal >=60 [facility] Comment on above: Performed By: #### U MICRO, ERUR #### [facility] [address] [address] [address] Alfredo Lizama Glucose [Mass/Vol] 97 mg/dL Normal 74-106 [facility] Comment on above: Performed By: #### U MICRO, ERUR #### [facility] [address] [place] [address] Dr. Alfredo Lizama Potassium [Moles/Vol] 3.7 mmol/L Normal 3.5-5.1 [facility] Comment on above: Performed By: #### U MICRO, ERUR #### [facility] [address] [place] [address] Dr. Alfredo Lizama Sodium [Moles/Vol] 140 mmol/L Normal 136-145 [facility] Comment on above: Performed By: #### U MICRO, ERUR #### [facility] [address] [address] [address] Alfredo Lizama Urea nitrogen [Mass/Vol] 7.0 mg/dL Normal 7.0-18.0 [facility] Comment on above: Performed By: #### U MICRO, ERUR #### [facility] [address] [place] [address] Dr. Alfredo Lizama Urea nitrogen/Creatinine [Mass ratio] 10.0 mg/mg Normal [facility] Comment on above: Performed By: #### U MICRO, ERUR #### [facility] [address] [place] [address] Dr. Alfredo Lizama URINE MICROSCOPIC ONLYon AMORPHOUS CRYSTALS FEW Normal [facility] Comment on above: Performed By: #### CHINMAY CHAVESRO #### [facility] [address] [place] [address] Dr. Alfredo Lizama BACTERIA LARGE Abnormal NONE SEEN [facility] Comment on above: Performed By: #### FER CHAVESICRO #### [facility] [address] [place] [address] Dr. Alfredo Lizama Bacteria identified Cx Nom (U) INDICATED Normal [facility] Comment on above: Performed By: #### Jacque ESTRADA UMICRO #### [facility] [address] [place] [address] Dr. Alfredo Lizama CAST NONE SEEN Normal NONE SEEN [facility] Comment on above: Performed By: #### Jacque ESTRADA UMICRO #### [facility] [address] [place] [address] Dr. Alfredo Lizama Crystals LM Nom (Urine sed) SEEN Abnormal NONE SEEN [facility] Comment on above: Performed By: #### Jacque ESTRADA UMICRO #### [facility] [address] [place] [address] Dr. Alfredo Lizama Epithelial cells LM Ql (Urine sed) RARE Normal NONE SEEN /RARE [facility] Comment on above: Performed By: #### Jacque ESTRADA UMICRO #### [facility] [address] [place] [address] Dr. Alfredo Lizama MUCOUS NONE SEEN Normal NONE SEEN [facility] Comment on above: Performed By: #### Jacque ESTRADA UMICRO #### [facility] [address] [place] [address] Dr. Alfredo Lizama RBC 2-5 Abnormal 0-2 [facility] Comment on above: Performed By: #### Jacque ESTRADA UMICRO #### [facility] [address] [place] [address] Dr. Alfredo Lizama TRIPLE PHOS CRYSTALS FEW Normal [facility] Comment on above: Performed By: #### Jacque ESTRADA UMICRO #### [facility] [address] [place] [address] Dr. Alfredo Lizama WBC 75-100 Abnormal NONE SEEN [facility] Comment on above: Performed By: #### Jacque ESTRADA UMICRO #### [facility] [address] [place] [address] Dr. Alfredo Liz[facility] (Inserted Image. Shelly ble to display) January 10, 2023 MORALES LEE [address] [place] [address] MORALES LEE 1975 Dear Morales, I am corresponding with you by certified mail because of repeat non compliance. You missed your catheter exchange appointment on 12/31/22. It is recommended your Alvares catheter be exchanged every 4 weeks to prevent encrustation and infection. Also you were referred to Dr Zhang at [facility] for further evaluation regarding your condition [...] [facility] [address], [place] [address] Normal [facility] CULTURE URINEon 12-25-2022 CULTURE URINE Isolate 1 [...] le <=20 S F Normal [facility] Comment on above: Performed By: #### U MICRO, ERUR #### [facility] [address] [place] [address] Dr. Alfredo Lizama AMYLASEon 11-09-2022 Amylase [Catalytic activity/Vol] 14 U/L Critically low 25-115 [facility] Comment on above: Performed By: #### U MICRO, ERUR #### [facility] [address] [address] [address] Alfredo Lizama CBC AUTO DIFFon 11-09-2022 BASO # 0.1 103/ul Normal 0.0-0.1 [facility] Comment on above: Performed By: #### U MICRO, ERUR #### [facility] [address] [place] [address] Dr. Alfredo Lizama Basophils/100 WBC (Bld) 0.8 % Normal 0.2-2.0 [facility] Comment on above: Performed By: #### U MICRO, ERUR #### [facility] [address] [place] [address] Dr. Alfredo Lizama EO # 0.2 103/ul Normal 0.0-0.7 [facility] Comment on above: Performed By: #### U MICRO, ERUR #### [facility] [address] [place] [address] Dr. Alfredo Lizama Eosinophils/100 WBC (Bld) 2.5 % Normal 0.9-7.0 [facility] Comment on above: Performed By: #### U MICRO, ERUR #### [facility] [address] [place] [address] Dr. Alfredo Lizama Erythrocyte distribution width (RBC) [Ratio] 12.7 % Normal 11.0-15.0 [facility] Comment on above: Performed By: #### U MICRO, ERUR #### [facility] [address] [place] [address] Dr. Alfredo Lizama Hematocrit (Bld) [Volume fraction] 46.3 % Normal 36.0-48.0 [facility] Comment on above: Performed By: #### U MICRO, ERUR #### [facility] [address] [place] [address] Dr. Alfredo Lizama Hemoglobin (Bld) [Mass/Vol] 15.9 g/dL Normal 12.0-16.0 [facility] Comment on above: Performed By: #### U MICRO, ERUR #### [facility] [address] [place] [address] Dr. Alfredo Lizama IG # 0.02 10e3/ul Normal 0.00-0.03 [facility] Comment on above: Performed By: #### U MICRO, ERUR #### [facility] [address] [address] [address] Alfredo Lizama IG % 0.2 % Normal 0.0-0.5 [facility] Comment on above: Performed By: #### U MICRO, ERUR #### [facility] [address] [address] [address] Alfredo Lizama LYMPH # 2.6 103/ul Normal 1.2-3.8 [facility] Comment on above: Performed By: #### U MICRO, ERUR #### [facility] [address] [address] [address] Alfredo Lizama Lymphocytes/100 WBC (Bld) 31.3 % Normal 20.5-60.0 [facility] Comment on above: Performed By: #### U MICRO, ERUR #### [facility] [address] [address] [address] Alfredo Lizama MANUAL DIFF REQ NO Normal [facility] Comment on above: Performed By: #### U MICRO, ERUR #### [facility] [address] [address] [address] Alfredo Lizama MCH (RBC) [Entitic mass] 29.3 pg Normal 26.7-34.0 [facility] Comment on above: Performed By: #### U MICRO, ERUR #### [facility] [address] [address] [address] Alfredo Lizama MCHC (RBC) [Mass/Vol] 34.3 g/dL Normal 29.9-35.2 [facility] Comment on above: Performed By: #### U MICRO, ERUR #### [facility] [address] [address] [address] Alfredo Lizama MCV (RBC) [Entitic vol] 85.4 fL Normal 81.0-99.0 [facility] Comment on above: Performed By: #### U MICRO, ERUR #### [facility] [address] [address] [address] Alfredo Lizama MONO # 0.6 103/ul Normal 0.3-0.8 [facility] Comment on above: Performed By: #### U MICRO, ERUR #### [facility] [address] [place] [address] Dr. Alfredo Lizama Monocytes/100 WBC (Bld) 6.6 % Normal 1.7-12.0 [facility] Comment on above: Performed By: #### U MICRO, ERUR #### [facility] [address] [place] [address] Dr. Alfredo Lizama NEUT # 4.9 103/ul Normal 1.4-6.5 [facility] Comment on above: Performed By: #### U MICRO, ERUR #### [facility] [address] [place] [address] Dr. Alfredo Lizama Neutrophils/100 WBC (Bld) 58.6 % Normal 43.0-75.0 [facility] Comment on above: Performed By: #### U MICRO, ERUR #### [facility] [address] [place] [address] Dr. Alfredo Lizama Platelet mean volume (Bld) [Entitic vol] 9.5 fL Normal 9.5-13.5 [facility] Comment on above: Performed By: #### U MICRO, ERUR #### [facility] [address] [place] [address] Dr. Alfredo Lizama PLT 273 103/ul Normal 150-450 [facility] Comment on above: Performed By: #### U MICRO, ERUR #### [facility] [address] [place] [address] Dr. Alfredo Lizama RBC 5.42 106/ul Critically high 4.20-5.40 [facility] Comment on above: Performed By: #### U MICRO, ERUR #### [facility] [address] [place] [address] Dr. Alfredo Lizama WBC 8.4 103/ul Normal 4.0-11.0 [facility] Comment on above: Performed By: #### U MICRO, ERUR #### [facility] [address] [place] [address] Dr. Alfredo Lizama CULTURE URINEon 03-07-2023 CULTURE URINE Culture Observations : MODERATE GROWTH OF MIXED GENITAL ROSANNA. NO POTENTIAL PATHOGENS SEEN. Normal [facility] Comment on above: Performed By: #### U MICRO, ERUR #### [facility] [address] [place] [address] Dr. Alfredo Lizama ER URINE PROFILEon 3 Bilirubin Ql (U) Negative Normal NEGATIVE [facility] Comment on above: Performed By: #### U MICRO, ERUR #### [facility] [address] [place] [address] Dr. Alfredo Lizama Clarity (U) CLEAR Normal CLEAR [facility] Comment on above: Performed By: #### U MICRO, ERUR #### [facility] [address] [place] [address] Dr. Alfredo Lizama Color (U) LT. YELLOW Normal YELLOW [facility] Comment on above: Performed By: #### U MICRO, ERUR #### [facility] [address] [place] [address] Dr. Alfredo Lizama ERUAHD A micrscopic examina tion will be performed if indicated. Normal [facility] Comment on above: Performed By: #### U MICRO, ERUR #### [facility] [address] [place] [address] Dr. Alfredo Lizama Glucose Ql (U) Negative Normal NEGATIVE [facility] Comment on above: Performed By: #### U MICRO, ERUR #### [facility] [address] [place] [address] Dr. Alfredo Lizama Hemoglobin Ql (U) MODERATE Abnormal NEGATIVE [facility] Comment on above: Performed By: #### U MICRO, ERUR #### [facility] [address] [address] [address] Alfredo Lizama Ketones Ql (U) Negative Normal NEGATIVE [facility] Comment on above: Performed By: #### U MICRO, ERUR #### [facility] [address] [place] [address] Dr. Alfredo Lizama LEUKOCYTES LARGE Abnormal NEGATIVE [facility] Comment on above: Performed By: #### U MICRO, ERUR #### [facility] [address] [place] [address] Dr. Alfredo Lizama Nitrite Ql (U) Negative Normal NEGATIVE [facility] Comment on above: Performed By: #### U MICRO, ERUR #### [facility] [address] [place] [address] Dr. Alfredo Lizama pH (U) 7.0 [pH] Normal 5-9 [facility] Comment on above: Performed By: #### U MICRO, ERUR #### [facility] [address] [place] [address] Dr. Alfredo Lizama SPEC GRAVITY 1.015 Normal 1.005-<=1.0 25 [facility] Comment on above: Performed By: #### U MICRO, ERUR #### [facility] [address] [place] [address] Dr. Alfredo Lizmaa UA PROTEIN Negative Normal NEGATIVE/ TRACE [facility] Comment on above: Performed By: #### U MICRO, ERUR #### [facility] [address] [place] [address] Dr. Alfredo Lizama UR MICRO IND INDICATED Normal [facility] Comment on above: Performed By: #### U MICRO, ERUR #### [facility] [address] [place] [address] Dr. Alfredo Lizama Urobilinogen Qn (U) 0.2 {Tesha'U}/dL Normal 0.2 - 1. 0 [facility] Comment on above: Performed By: #### U MICRO, ERUR #### [facility] [address] [place] [address] Dr. Alfredo Lizama LIPASEon 11-09-2022 Lipase [Catalytic activity/Vol] 34.0 U/L Critically low 73.0-393.0 [facility] Comment on above: Performed By: #### U MICRO, ERUR #### [facility] [address] [place] [address] Dr. Alfredo Lizama PROF 14(COMP METB)on 023 Albumin [Mass/Vol] 4.0 g/dL Normal 3.4-5.0 [facility] Comment on above: Performed By: #### U MICRO, ERUR #### [facility] [address] [address] [address] Alfredo Lizama Albumin/Globulin [Mass ratio] 1.0 {ratio} Normal [facility] Comment on above: Performed By: #### U MICRO, ERUR #### [facility] [address] [address] [address] Alfredo Lizama ALP [Catalytic activity/Vol] 206 U/L Critically high 46-116 [facility] Comment on above: Performed By: #### U MICRO, ERUR #### [facility] [address] [address] [address] Alfredo Lizama ALT [Catalytic activity/Vol] 53 U/L Normal 14-59 [facility] Comment on above: Performed By: #### U MICRO, ERUR #### [facility] [address] [address] [address] Alfredo Lizama Anion gap [Moles/Vol] 14.5 mmol/L Normal [facility] Comment on above: Performed By: #### U MICRO, ERUR #### [facility] [address] [address] [address] Alfredo Lizama AST [Catalytic activity/Vol] 55 U/L Critically high 15-37 [facility] Comment on above: Performed By: #### U MICRO, ERUR #### [facility] [address] [address] [address] Alfredo Lizama Bilirubin [Mass/Vol] 0.7 mg/dL Normal 0.2-1.0 [facility] Comment on above: Performed By: #### U MICRO, ERUR #### [facility] [address] [address] [address] Alfredo Lizama Calcium [Mass/Vol] 9.0 mg/dL Normal 8.5-10.1 [facility] Comment on above: Performed By: #### U MICRO, ERUR #### [facility] [address] [address] [address] Alfredo Lizama Chloride [Moles/Vol] 100 mmol/L Normal 98-107 [facility] Comment on above: Performed By: #### U MICRO, ERUR #### [facility] [address] [address] [address] Alfredo Lizama CO2 [Moles/Vol] 28.3 mmol/L Normal 21.0-32.0 [facility] Comment on above: Performed By: #### U MICRO, ERUR #### [facility] [address] [address] [address] Alfredo Lizama Creatinine [Mass/Vol] 0.65 mg/dL Normal 0.55-1.02 [facility] Comment on above: Performed By: #### U MICRO, ERUR #### [facility] [address] [address] [address] Alfredo Lizama EGFR-AF GRENADIAN >60 Normal >=60 [facility] Comment on above: Performed By: #### U MICRO, ERUR #### [facility] [address] [address] [address] Alfredo Lizama EGFR-NON AF GRENADIAN >60 Normal >=60 [facility] Comment on above: Performed By: #### U MICRO, ERUR #### [facility] [address] [address] [address] Alfredo Lizama Globulin (S) [Mass/Vol] 3.9 g/dL Normal [facility] Comment on above: Performed By: #### U MICRO, ERUR #### [facility] [address] [address] [address] Alfredo Lizama Glucose [Mass/Vol] 134 mg/dL Critically high 74-106 [facility] Comment on above: Performed By: #### U MICRO, ERUR #### [facility] [address] [address] [address] Alfredo Lizama Potassium [Moles/Vol] 3.8 mmol/L Normal 3.5-5.1 [facility] Comment on above: Performed By: #### U MICRO, ERUR #### [facility] [address] [address] [address] Alfredo Lizama Protein [Mass/Vol] 7.9 g/dL Normal 6.4-8.2 [facility] Comment on above: Performed By: #### U MICRO, ERUR #### [facility] [address] [address] [address] Alfredo Lizama Sodium [Moles/Vol] 139 mmol/L Normal 136-145 [facility] Comment on above: Performed By: #### U MICRO, ERUR #### [facility] [address] [address] [address] Alfredo Lizama Urea nitrogen [Mass/Vol] 7.0 mg/dL Normal 7.0-18.0 [facility] Comment on above: Performed By: #### U MICRO, ERUR #### [facility] [address] [address] [address] Alfredo Lizama Urea nitrogen/Creatinine [Mass ratio] 10.7 mg/mg Normal [facility] Comment on above: Performed By: #### U MICRO, ERUR #### [facility] [address] [place] [address] Dr. Alfredo Lizama URINE MICROSCOPIC ONLYon BACTERIA TRACE Abnormal NONE SEEN [facility] Comment on above: Performed By: #### U MICRO, ERUR #### [facility] [address] [address] [address] Alfredo Lizama Bacteria identified Cx Nom (U) INDICATED Normal [facility] Comment on above: Performed By: #### U MICRO, ERUR #### [facility] [address] [place] [address] Dr. Alfredo Lizama CAST NONE SEEN Normal NONE SEEN [facility] Comment on above: Performed By: #### U MICRO, ERUR #### [facility] [address] [address] [address] Alfredo Lizama Crystals LM Nom (Urine sed) NONE SEEN Normal NONE SEEN [facility] Comment on above: Performed By: #### U MICRO, ERUR #### [facility] [address] [place] [address] Dr. Alfredo Lizama Epithelial cells LM Ql (Urine sed) FEW Abnormal NONE SEEN /RARE [facility] Comment on above: Performed By: #### U MICRO, ERUR #### [facility] [address] [place] [address] Dr. Alfredo Lizama MUCOUS NONE SEEN Normal NONE SEEN [facility] Comment on above: Performed By: #### U MICRO, ERUR #### [facility] [address] [address] [address] Alfredo Lizama RBC 20-50 Abnormal 0-2 [facility] Comment on above: Performed By: #### U MICRO, ERUR #### [facility] [address] [address] [address] Alfredo Lizama WBC 20-50 Abnormal NONE SEEN [facility] Comment on above: Performed By: #### U MICRO, ERUR #### [facility] [address] [address] [address] Alfredo Lizama XR ABD FLAT_UPon 11-09-2022 [...] LOWE Date: 2022-11-09 11:06 Normal [facility] CULTURE URINEon 10-18-2022 CULTURE URINE Isolate [...] le <=10 S F Normal [facility] Comment on above: Performed By: #### U MICRO, ERUR #### [facility] [address] [place] [address] Dr. Alfredo Lizama ER URINE PROFILEon 3 Bilirubin Ql (U) Negative Normal NEGATIVE [facility] Comment on above: Performed By: #### Jacque ESTRADA UMICRO #### [facility] [address] [place] [address] Dr. Alfredo Lizama Clarity (U) CLEAR Normal CLEAR [facility] Comment on above: Performed By: #### Jacque ESTRADA UMICRO #### [facility] [address] [place] [address] Dr. Alfredo Lizama Color (U) YELLOW Normal YELLOW [facility] Comment on above: Performed By: #### Jacque ESTRADA UMICRO #### [facility] [address] [place] [address] Dr. Alfredo RAYMUNDO A micrscopic examina tion will be performed if indicated. Normal [facility] Comment on above: Performed By: #### Jacque ESTRADA UMICRO #### [facility] [address] [place] [address] Dr. Alfredo Lizama Glucose Ql (U) Negative Normal NEGATIVE [facility] Comment on above: Performed By: #### Jacque ESTRADA UMICRO #### [facility] [address] [place] [address] Dr. Alfredo Lizama Hemoglobin Ql (U) LARGE Abnormal NEGATIVE [facility] Comment on above: Performed By: #### Jacque ESTRADA UMICRO #### [facility] [address] [place] [address] Dr. Alfreod Lizama Ketones Ql (U) Negative Normal NEGATIVE [facility] Comment on above: Performed By: #### CHINMAY CHAVESRO #### [facility] [address] [place] [address] Dr. Alfredo Lizama LEUKOCYTES LARGE Abnormal NEGATIVE [facility] Comment on above: Performed By: #### CHINMAY CHAVESRO #### [facility] [address] [place] [address] Dr. Alfredo Lizama Nitrite Ql (U) Positive Abnormal NEGATIVE [facility] Comment on above: Performed By: #### CHINMAY CHAVESRO #### [facility] [facility] [address] [place] [address] Dr. Alfredo Lizama pH (U) 6.5 [pH] Normal 5-9 [facility] Comment on above: Performed By: #### CHINMAY CHAVESRO #### [facility] [address] [place] [address] Dr. Alfredo Lizama Protein (U) [Mass/Vol] 100 mg/dL Abnormal NEGATIVE/ TRACE [facility] Comment on above: Performed By: #### CHINMAY CHAVESRO #### [facility] [address] [place] [address] Dr. Alfredo Lizama SPEC GRAVITY 1.010 Normal 1.005-<=1.0 25 [facility] Comment on above: Performed By: #### CHINMAY CHAVESRO #### [facility] [address] [place] [address] Dr. Alfredo Lizama UR MICRO IND INDICATED Normal [facility] Comment on above: Performed By: #### CHINMAY CHAVESRO #### [facility] [address] [place] [address] Dr. Alfredo Lizama Urobilinogen Qn (U) 1.0 {Tesha'U}/dL Normal 0.2 - 1. 0 [facility] Comment on above: Performed By: #### CHINMAY CHAVESRO #### [facility] [address] [place] [address] Dr. Alfredo Lizama URINE MICROSCOPIC ONLYon BACTERIA MODERATE Abnormal NONE SEEN [facility] Comment on above: Performed By: #### U MICRO, ERUR #### [facility] [address] [address] [address] Alfredo Lizama Bacteria identified Cx Nom (U) INDICATED Normal [facility] Comment on above: Performed By: #### U MICRO, ERUR #### [facility] [address] [place] [address] Dr. Alfredo Lizama CA OX CRYSTALS RARE Normal [facility] Comment on above: Performed By: #### U MICRO, ERUR #### [facility] [address] [address] [address] Alfredo Lizama CAST NONE SEEN Normal NONE SEEN [facility] Comment on above: Performed By: #### U MICRO, ERUR #### [facility] [address] [place] [address] Dr. Alfredo Lizama Crystals LM Nom (Urine sed) SEEN Abnormal NONE SEEN [facility] Comment on above: Performed By: #### U MICRO, ERUR #### [facility] [address] [place] [address] Dr. Alfredo Lizama Epithelial cells LM Ql (Urine sed) MODERATE Abnormal NONE SEEN /RARE [facility] Comment on above: Performed By: #### U MICRO, ERUR #### [facility] [address] [place] [address] Dr. Alfredo Lizama MUCOUS TRACE Abnormal NONE SEEN [facility] Comment on above: Performed By: #### U MICRO, ERUR #### [facility] [address] [place] [address] Dr. Alfredo Lizama RBC 20-50 Abnormal 0-2 [facility] Comment on above: Performed By: #### U MICRO, ERUR #### [facility] [address] [place] [address] Dr. Alfredo Lizama WBC 50-75 Abnormal NONE SEEN [facility] Comment on above: Performed By: #### U MICRO, ERUR #### [facility] [address] [place] [address] Dr. Alfredo Lizama Covid-19 PCR ([facility])on 08-06 SARS-CoV-2 (COVID-19) RNA ADRIÁN+probe Ql (Unsp spec) Not detected Normal NOT DETECTED [facility] Comment on above: Result Comment: When [...] for this test is supported by the [place] of [employer] and Human Service's declaration that [...] By: #### U MICRO, ERUR #### [facility] [address] [place] [address] Dr. Alfredo Lizama CBC AUTO DIFFon 08-24-2022 BASO # 0.1 103/ul Normal 0.0-0.1 [facility] Comment on above: Performed By: #### C BC #### [facility] [address] [place] [address] Dr. Alfredo Lizama Basophils/100 WBC (Bld) 0.8 % Normal 0.2-2.0 [facility] Comment on above: Performed By: #### C BC #### [facility] [address] [place] [address] Dr. Alfredo Lizama EO # 0.3 103/ul Normal 0.0-0.7 [facility] Comment on above: Performed By: #### C BC #### [facility] [address] [place] [address] Dr. Alfredo Lizama Eosinophils/100 WBC (Bld) 3.1 % Normal 0.9-7.0 [facility] Comment on above: Performed By: #### C BC #### [facility] [address] [place] [address] Dr. Alfredo Lizama Erythrocyte distribution width (RBC) [Ratio] 13.4 % Normal 11.0-15.0 [facility] Comment on above: Performed By: #### C BC #### [facility] [address] [place] [address] Dr. Alfredo Lizama Hematocrit (Bld) [Volume fraction] 47.2 % Normal 36.0-48.0 [facility] Comment on above: Performed By: #### C BC #### [facility] [address] [place] [address] Dr. Alfredo Lizama Hemoglobin (Bld) [Mass/Vol] 15.6 g/dL Normal 12.0-16.0 [facility] Comment on above: Performed By: #### C BC #### [facility] [address] [place] [address] Dr. Alfredo Lizama IG # 0.02 10e3/ul Normal 0.00-0.03 [facility] Comment on above: Performed By: #### C BC #### [facility] [address] [place] [address] Dr. Alfredo Lizama IG % 0.2 % Normal 0.0-0.5 [facility] Comment on above: Performed By: #### C BC #### [facility] [address] [place] [address] Dr. Alfredo Lizama LYMPH # 4.4 103/ul Critically high 1.2-3.8 [facility] Comment on above: Performed By: #### C BC #### [facility] [address] [place] [address] Dr. Alfredo Lizama Lymphocytes/100 WBC (Bld) 42.3 % Normal 20.5-60.0 [facility] Comment on above: Performed By: #### C BC #### [facility] [address] [place] [address] Dr. Alfredo Lizama MANUAL DIFF REQ NO Normal [facility] Comment on above: Performed By: #### C BC #### [facility] [address] [place] [address] Dr. Alfredo Lizama MCH (RBC) [Entitic mass] 28.8 pg Normal 26.7-34.0 [facility] Comment on above: Performed By: #### C BC #### [facility] [address] [address] [address] Alfredo Lizama MCHC (RBC) [Mass/Vol] 33.1 g/dL Normal 29.9-35.2 [facility] Comment on above: Performed By: #### C BC #### [facility] [address] [address] [address] Alfredo Lizama MCV (RBC) [Entitic vol] 87.2 fL Normal 81.0-99.0 [facility] Comment on above: Performed By: #### C BC #### [facility] [address] [place] [address] Dr. Alfredo Lizama MONO # 0.6 103/ul Normal 0.3-0.8 [facility] Comment on above: Performed By: #### C BC #### [facility] [address] [place] [address] Dr. Alfredo Lizama Monocytes/100 WBC (Bld) 5.3 % Normal 1.7-12.0 [facility] Comment on above: Performed By: #### C BC #### [facility] [address] [place] [address] Dr. Alfredo Lizama NEUT # 5.0 103/ul Normal 1.4-6.5 [facility] Comment on above: Performed By: #### C BC #### [facility] [address] [place] [address] Dr. Alfredo Lizama Neutrophils/100 WBC (Bld) 48.3 % Normal 43.0-75.0 [facility] Comment on above: Performed By: #### C BC #### [facility] [address] [place] [address] Dr. Alfredo Lizama Platelet mean volume (Bld) [Entitic vol] 9.9 fL Normal 9.5-13.5 [facility] Comment on above: Performed By: #### C BC #### [facility] [address] [place] [address] Dr. Alfredo Lizama PLT 298 103/ul Normal 150-450 [facility] Comment on above: Performed By: #### C BC #### [facility] [address] [address] [address] Alfredo Lizama RBC 5.41 106/ul Critically high 4.20-5.40 [facility] Comment on above: Performed By: #### C BC #### [facility] [address] [address] [address] Alfredo Lizama WBC 10.3 103/ul Normal 4.0-11.0 [facility] Comment on above: Performed By: #### C BC #### [facility] [address] [address] [address] Alfredo Lizama PROF CHEM 8 (BAS METB)on Anion gap [Moles/Vol] 14.3 mmol/L Normal [facility] Comment on above: Performed By: #### U MICRO, ERUR #### [facility] [address] [place] [address] Dr. Alfredo Lizama Calcium [Mass/Vol] 9.1 mg/dL Normal 8.5-10.1 [facility] Comment on above: Performed By: #### U MICRO, ERUR #### [facility] [address] [place] [address] Dr. Alfredo Lizama Chloride [Moles/Vol] 99 mmol/L Normal 98-107 [facility] Comment on above: Performed By: #### U MICRO, ERUR #### [facility] [address] [place] [address] Dr. Alfredo Lizama CO2 [Moles/Vol] 29.0 mmol/L Normal 21.0-32.0 [facility] Comment on above: Performed By: #### U MICRO, ERUR #### [facility] [address] [place] [address] Dr. Alfredo Lizama Creatinine [Mass/Vol] 0.70 mg/dL Normal 0.55-1.02 [facility] Comment on above: Performed By: #### U MICRO, ERUR #### [facility] [address] [place] [address] Dr. Alfredo Lizama EGFR-AF GRENADIAN >60 Normal >=60 [facility] Comment on above: Performed By: #### U MICRO, ERUR #### [facility] [address] [address] [address] Alfredo Lizama EGFR-NON AF GRENADIAN >60 Normal >=60 [facility] Comment on above: Performed By: #### U MICRO, ERUR #### [facility] [address] [address] [address] Alfredo Lizama Glucose [Mass/Vol] 121 mg/dL Critically high 74-106 T [facility] Comment on above: Performed By: #### U MICRO, ERUR #### [facility] [address] [address] [address] Alfredo Lizama Potassium [Moles/Vol] 3.3 mmol/L Critically low 3.5-5.1 [facility] Comment on above: Performed By: #### U MICRO, ERUR #### [facility] [address] [address] [address] Alfredo Lizama Sodium [Moles/Vol] 139 mmol/L Normal 136-145 [facility] Comment on above: Performed By: #### U MICRO, ERUR #### [facility] [address] [address] [address] Alfredo Lizama Urea nitrogen [Mass/Vol] 5.0 mg/dL Critically low 7.0-18.0 [facility] Comment on above: Performed By: #### U MICRO, ERUR #### [facility] [address] [address] [address] Alfredo Lizama Urea nitrogen/Creatinine [Mass ratio] 7.1 mg/mg Normal [facility] Comment on above: Performed By: #### U MICRO, ERUR #### [facility] [address] [address] [address] Alfredo Lizama PROTIMEon 08-24-2022 INR Coag (PPP) [Relative time] 0.99 {INR} Normal [facility] Comment on above: Performed By: #### P T, PTT #### [facility] [address] [address] [address] Alfredo Lizama INR GUIDELINES SEE BELOW Normal [facility] Comment on above: Result Comment: MARY JO RED INR: 2.0 - 3.0 CONDITIONS NOT LISTED BELOW 2.5 - 3.5 FOR PROSTHETIC HEART VALVE REPLACEMENT 2.5 - 3.5 RECURRENT THROMBOSIS Performed By: #### P T, PTT #### [facility] [address] [place], [place] [address] Dr. Alfredo Lizama PT Coag (PPP) [Time] 10.7 s Normal 9.0-11.6 [facility] Comment on above: Performed By: #### P T, PTT #### [facility] [address] [place], [place] [address] Dr. Alfredo Lizama PTTon 08-24-2022 aPTT Coag (Bld) [Time] 31.7 s Normal 22.3-36.2 [facility] Comment on above: Performed By: #### P T, PTT #### [facility] [address] [place], [place] [address] Dr. Alfredo Lizama BN SACRUM/COCCYX, MIN 2 [...] 09/20/2019. Thoracolumbar spine radiographs 09/08/2021. ACCESSION NUMBER(S): [id number]; [id number]; [id number] ORDERING CLINICIAN: CANDICE PEREZ FINDINGS: Three views [...] stated. Electronically signed by: GOMEZ JAMA MD [facility] BN SPINE, LUMBOSACRAL; 2 OR [...] 09/20/2019. Thoracolumbar spine radiographs 09/08/2021. ACCESSION NUMBER(S): [id number]; [id number]; [id number] ORDERING CLINICIAN: CANDICE PEREZ FINDINGS: Three views [...] stated. Electronically signed by: GOMEZ JAMA MD [facility] BN SPINE, THORACIC, 3 VIEWSo n [...] 09/20/2019. Thoracolumbar spine radiographs 09/08/2021. ACCESSION NUMBER(S): [id number]; [id number]; [id number] ORDERING CLINICIAN: CANDICE PEREZ FINDINGS: Three views [...] Electronically signed by: GOMEZ JAMA MD Normal [facility] CBC AND DIFFERENTIALon 06-07 % AUTOMATED IMMATURE GRAN 0.2 % Normal 0.0 - 0.9 [facility] Comment on above: Result Comment: Jaleesa ture Granulocyte Count (IG) includes promyelocytes, myelocytes and metamyelocytes but does not include bands. Percent differential counts (%) should be interpreted in the context of the absolute cell counts (cells/L). Performed By: #### R ENAL #### [facility] [address] [place] [address] Basophils (Bld) [#/Vol] 0.09 10*3/uL Normal 0.00 - 0.10 [facility] Comment on above: Performed By: #### R ENAL #### [facility] [address] [place] [address] Basophils/100 WBC (Bld) 1.0 % Normal 0.0 - 2.0 [facility] Comment on above: Performed By: #### R ENAL #### [facility] [address] [place] [address] Eosinophils (Bld) [#/Vol] 0.24 10*3/uL Normal 0.00 - 0.70 [facility] Comment on above: Performed By: #### R ENAL #### [facility] [address] [place] [address] Eosinophils/100 WBC (Bld) 2.6 % Normal 0.0 - 6.0 [facility] Comment on above: Performed By: #### R ENAL #### [facility] [address] [place] [address] Erythrocyte distribution width (RBC) [Ratio] 12.9 % Normal 11.5 - 14.5 [facility] Comment on above: Performed By: #### R ENAL #### [facility] [address] [place] [address] Hematocrit (Bld) [Volume fraction] 48.4 % High 36.0 - 46.0 [facility] Comment on above: Performed By: #### R ENAL #### [facility] [address] [place] [address] Hemoglobin (Bld) [Mass/Vol] 17.1 g/dL High 12.0 - 16.0 [facility] Comment on above: Performed By: #### R ENAL #### [facility] [address] [place] [address] Lymphocytes (Bld) [#/Vol] 2.93 10*3/uL Normal 1.20 - 4.80 [facility] Comment on above: Performed By: #### R ENAL #### [facility] [address] [place] [address] Lymphocytes/100 WBC (Bld) 31.9 % Normal 13.0 - 44.0 [facility] Comment on above: Performed By: #### R ENAL #### [facility] [address] [place] [address] MCHC (RBC) [Mass/Vol] 35.3 g/dL Normal 32.0 - 36.0 [facility] Comment on above: Performed By: #### R ENAL #### [facility] [address] [place] [address] MCV (RBC) [Entitic vol] 85 fL Normal 80 - 100 [facility] Comment on above: Performed By: #### R ENAL #### [facility] [address] [place] [address] Monocytes (Bld) [#/Vol] 0.36 10*3/uL Normal 0.10 - 1.00 [facility] Comment on above: Performed By: #### R ENAL #### [facility] [address] [place] [address] Monocytes/100 WBC (Bld) 3.9 % Normal 2.0 - 10.0 [facility] Comment on above: Performed By: #### R ENAL #### [facility] [address] [place] [address] Neutrophils (Bld) [#/Vol] 5.54 10*3/uL Normal 1.20 - 7.70 [facility] Comment on above: Performed By: #### R ENAL #### [facility] [address] [place] [address] Neutrophils/100 WBC (Bld) 60.4 % Normal 40.0 - 80.0 [facility] Comment on above: Performed By: #### R ENAL #### [facility] [address] [place] [address] NUCLEATED RBC 0.0 /100 WBC Normal 0.0-0.0 [facility] Comment on above: Performed By: #### R ENAL #### [facility] [address] [place] [address] Platelets (Bld) [#/Vol] 365 10*3/uL Normal 150 - 450 [facility] Comment on above: Performed By: #### R ENAL #### [facility] [address] [place] [address] RBC 5.69 x10E12/L High 4.00 - 5.20 [facility] Comment on above: Performed By: #### R ENAL #### [facility] [address] [place] [address] WBC (Bld) [#/Vol] 9.2 10*3/uL Normal 4.4 - 11.3 [facility] Comment on above: Performed By: #### R ENAL #### [facility] [address] [place] [address] COMPREHENSIVE PANELon 2021 Albumin [Mass/Vol] 4.6 g/dL Normal 3.4 - 5.0 [facility] Comment on above: Performed By: #### R ENAL #### [facility] [address] [place] [address] ALP [Catalytic activity/Vol] 192 U/L High 33 - 110 [facility] Comment on above: Performed By: #### R ENAL #### [facility] [address] [place] [address] ALT [Catalytic activity/Vol] 33 U/L Normal 7 - 45 [facility] Comment on above: Result Comment: Melly ents treated with Sulfasalazine may generate falsely decreased results for ALT. Performed By: #### R ENAL #### [facility] [address] [place] [address] Anion gap [Moles/Vol] 16 mmol/L Normal 10 - 20 [facility] Comment on above: Performed By: #### R ENAL #### [facility] [address] [place] [address] AST [Catalytic activity/Vol] 51 U/L High 9 - 39 [facility] Comment on above: Performed By: #### R ENAL #### [facility] [address] [place] [address] Bilirubin [Mass/Vol] 0.5 mg/dL Normal 0.0 - 1.2 [facility] Comment on above: Performed By: #### R ENAL #### [facility] [address] [place] [address] Calcium [Mass/Vol] 10.3 mg/dL Normal 8.6 - 10.6 [facility] Comment on above: Performed By: #### R ENAL #### [facility] [address] [place] [address] Chloride [Moles/Vol] 101 mmol/L Normal 98 - 107 [facility] Comment on above: Performed By: #### R ENAL #### [facility] [address] [place] [address] Creatinine [Mass/Vol] 0.61 mg/dL Normal 0.50 - 1.05 [facility] Comment on above: Performed By: #### R ENAL #### [facility] [address] [place] [address] eGFR FEMALE >90 Normal >90 [facility] Comment on above: Result Comment: CALC ULATIONS OF ESTIMATED GFR ARE PERFORMED USING THE 2020 CKD-EPI STUDY REFIT EQUATION WITHOUT THE RACE VARIABLE FOR THE IDMS-TRACEABLE CREATININE METHODS. https://jasn.asnjournals.org/content/early/ASN.0211260 988 Performed By: #### R ENAL #### [facility] [address] [place] [address] Glucose [Mass/Vol] 100 mg/dL High 74 - 99 [facility] Comment on above: Performed By: #### R ENAL #### [facility] [address] [place] [address] HCO3 (Bld) [Moles/Vol] 27 mmol/L Normal 21 - 32 [facility] Comment on above: Performed By: #### R ENAL #### [facility] [address] [place] [address] Potassium [Moles/Vol] 3.8 mmol/L Normal 3.5 - 5.3 [facility] Comment on above: Performed By: #### R ENAL #### [facility] [address] [place] [address] Protein [Mass/Vol] 8.2 g/dL Normal 6.4 - 8.2 [facility] Comment on above: Performed By: #### R ENAL #### [facility] [address] [place] [address] Sodium [Moles/Vol] 140 mmol/L Normal 136 - 145 [facility] Comment on above: Performed By: #### R ENAL #### [facility] [address] [place] [address] Urea nitrogen [Mass/Vol] 5 mg/dL Low 6 - 23 [facility] Comment on above: Performed By: #### R ENAL #### [facility] [address] 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 [id number] spinal canal and neural foraminal narrowing described [...] view. Electronically signed by: DO Andrei TOURE [facility] NR CT T-SPINE WO CONTRASTon 06-07-[address] T-SPINE WO CONTRAST Patient Name: MORALES LEE STUDY: CT T-SPINE WO CONTRAST; CT L-SPINE WO CONTRAST 06/06/2022 11:03 pm INDICATION: ok, Lie Flat: Yes COMPARISON: 09/20/2021 MRI and 09/18/2021 CT ACCESSION NUMBER(S): [id number]; [id number] ORDERING CLINICIAN: CANDICE PEREZ TECHNIQUE: Axial CT [...] osseous spinal canal or neural foraminal stenosis. [id number] spinal canal and neural foraminal narrowing described [...] view. Electronically signed by: DO Andrei TOURE [facility] Provider Note - ED Care Diaz [...] 21-Jun-2022 06:18 by Yony Aguirre () Normal [facility] Provider Note - ED v3on 10-0 [...] - M21.37 (more content not included)... Normal [facility] Triage - EDon 06-06-2022 Triage - [...] obeys commands Best Verbal Response: (V5) oriented Center [place] Score: 15 Mask applied: yes Patient has [...] Last Updated: 06-Jun-2022 19:07 by Meghan Chavez (RN) Normal [facility] CULTURE URINEon 05-10-2022 CULTURE URINE Isolate [...] F Trimethoprim/Sulfamethoxazo le <=20 S F Normal [facility] Comment on above: Performed By: #### U MICRO, ERUR #### [facility] [address] [place] [address] Dr. Alfredo Lizama CBC AUTO DIFFon 05-07-2022 BASO # 0.1 103/ul Normal 0.0-0.1 [facility] Comment on above: Performed By: #### U MICRO, ERUR #### [facility] [address] [place] [address] Dr. Alfredo Lizama Basophils/100 WBC (Bld) 0.5 % Normal 0.2-2.0 [facility] Comment on above: Performed By: #### U MICRO, ERUR #### [facility] [address] [place] [address] Dr. Alfredo Lizama EO # 0.4 103/ul Normal 0.0-0.7 [facility] Comment on above: Performed By: #### U MICRO, ERUR #### [facility] [address] [place] [address] Dr. Alfredo Lizama Eosinophils/100 WBC (Bld) 3.5 % Normal 0.9-7.0 [facility] Comment on above: Performed By: #### U MICRO, ERUR #### [facility] [address] [place] [address] Dr. Alfredo Lizama Erythrocyte distribution width (RBC) [Ratio] 13.2 % Normal 11.0-15.0 [facility] Comment on above: Performed By: #### U MICRO, ERUR #### [facility] [address] [place] [address] Dr. Alfredo Lizama Hematocrit (Bld) [Volume fraction] 44.0 % Normal 36.0-48.0 [facility] Comment on above: Performed By: #### U MICRO, ERUR #### [facility] [address] [place] [address] Dr. Alfredo Lizama Hemoglobin (Bld) [Mass/Vol] 14.8 g/dL Normal 12.0-16.0 [facility] Comment on above: Performed By: #### U MICRO, ERUR #### [facility] [address] [place] [address] Dr. Alfredo Lizama IG # 0.03 10e3/ul Normal 0.00-0.03 [facility] Comment on above: Performed By: #### U MICRO, ERUR #### [facility] [address] [place] [address] Dr. Alfredo Lizama IG % 0.2 % Normal 0.0-0.5 [facility] Comment on above: Performed By: #### U MICRO, ERUR #### [facility] [address] [place] [address] Dr. Alfredo Lizama LYMPH # 3.8 103/ul Normal 1.2-3.8 [facility] Comment on above: Performed By: #### U MICRO, ERUR #### [facility] [address] [place] [address] Dr. Alfredo Lizama Lymphocytes/100 WBC (Bld) 31.3 % Normal 20.5-60.0 [facility] Comment on above: Performed By: #### U MICRO, ERUR #### [facility] [address] [place] [address] Dr. Alfredo Lizama MANUAL DIFF REQ NO Normal [facility] Comment on above: Performed By: #### U MICRO, ERUR #### [facility] [address] [place] [address] Dr. Alfredo Lizama MCH (RBC) [Entitic mass] 28.8 pg Normal 26.7-34.0 [facility] Comment on above: Performed By: #### U MICRO, ERUR #### [facility] [address] [place] [address] Dr. Alfredo Lizama MCHC (RBC) [Mass/Vol] 33.6 g/dL Normal 29.9-35.2 [facility] Comment on above: Performed By: #### U MICRO, ERUR #### [facility] [address] [place] [address] Dr. Alfredo Lizama MCV (RBC) [Entitic vol] 85.8 fL Normal 81.0-99.0 [facility] Comment on above: Performed By: #### U MICRO, ERUR #### [facility] [address] [place] [address] Dr. Alfredo Lizama MONO # 0.7 103/ul Normal 0.3-0.8 [facility] Comment on above: Performed By: #### U MICRO, ERUR #### [facility] [address] [place], [place] [id number] Dr. Alfredo Lizama Monocytes/100 WBC (Bld) 5.8 % Normal 1.7-12.0 [facility] Comment on above: Performed By: #### U MICRO, ERUR #### [facility] [address] [place] [address] Dr. Alfredo Lizama NEUT # 7.1 103/ul Critically high 1.4-6.5 [facility] Comment on above: Performed By: #### U MICRO, ERUR #### [facility] [address] [place] [address] Dr. Alfredo Lizama Neutrophils/100 WBC (Bld) 58.7 % Normal 43.0-75.0 [facility] Comment on above: Performed By: #### U MICRO, ERUR #### [facility] [address] [place] [address] Dr. Alfredo Lizama Platelet mean volume (Bld) [Entitic vol] 9.6 fL Normal 9.5-13.5 [facility] Comment on above: Performed By: #### U MICRO, ERUR #### [facility] [address] [place] [address] Dr. Alfredo Lizama PLT 269 103/ul Normal 150-450 [facility] Comment on above: Performed By: #### U MICRO, ERUR #### [facility] [address] [place] [address] Dr. Alfredo Lizama RBC 5.13 106/ul Normal 4.20-5.40 [facility] Comment on above: Performed By: #### U MICRO, ERUR #### [facility] [address] [place] [address] Dr. Alfredo Lizama WBC 12.2 103/ul Critically high 4.0-11.0 [facility] Comment on above: Performed By: #### U MICRO, ERUR #### [facility] [address] [place] [address] ABD/PELV W CONon [...] STANLEY Date: 2022-05-07 14:00 Normal [facility] ER URINE PROFILEon 2 Bilirubin Ql (U) Negative Normal NEGATIVE [facility] Comment on above: Performed By: #### U MICRO, ERUR #### [facility] [address] [place] [address] Dr. Alfredo Lizama Clarity (U) CLOUDY Abnormal CLEAR [facility] Comment on above: Performed By: #### U MICRO, ERUR #### [facility] [address] [address] [address] Alfredo Lizama Color (U) LT. YELLOW Normal YELLOW [facility] Comment on above: Performed By: #### U MICRO, ERUR #### [facility] [address] [place] [address] Dr. Alfredo Lizama ERUBYROND A micrscopic examina tion will be performed if indicated. Normal [facility] Comment on above: Performed By: #### U MICRO, ERUR #### [facility] [address] [address] [address] Alfredo Lizama Glucose Ql (U) Negative Normal NEGATIVE [facility] Comment on above: Performed By: #### U MICRO, ERUR #### [facility] [address] [place] [address] Dr. Alfredo Lizama Hemoglobin Ql (U) LARGE Abnormal NEGATIVE [facility] Comment on above: Performed By: #### U MICRO, ERUR #### [facility] [address] [address] [address] Alfredo Lizama Ketones Ql (U) Negative Normal NEGATIVE [facility] Comment on above: Performed By: #### U MICRO, ERUR #### [facility] [address] [address] [address] Alfredo Lizama LEUKOCYTES MODERATE Abnormal NEGATIVE [facility] Comment on above: Performed By: #### U MICRO, ERUR #### [facility] [address] [place] [address] Dr. Alfredo Lizama Nitrite Ql (U) Positive Abnormal NEGATIVE [facility] Comment on above: Performed By: #### U MICRO, ERUR #### [facility] [address] [place] [address] Dr. Alfredo Lizama pH (U) 8.5 [pH] Normal 5-9 [facility] Comment on above: Performed By: #### U MICRO, ERUR #### [facility] [address] [place] [address] Dr. Alfredo Lizama Protein (U) [Mass/Vol] 100 mg/dL Abnormal NEGATIVE/ TRACE [facility] Comment on above: Performed By: #### U MICRO, ERUR #### [facility] [address] [place] [address] Dr. Alfredo Lizama SPEC GRAVITY 1.015 Normal 1.005-<=1.0 25 [facility] Comment on above: Performed By: #### U MICRO, ERUR #### [facility] [address] [place] [address] Dr. Alfredo Lizama UR MICRO IND INDICATED Normal [facility] Comment on above: Performed By: #### U MICRO, ERUR #### [facility] [address] [place] [address] Dr. Alfredo Lizama Urobilinogen Qn (U) 1.0 {Tesha'U}/dL Normal 0.2 - 1. 0 [facility] Comment on above: Performed By: #### U MICRO, ERUR #### [facility] [address] [place] [address] Dr. Alfredo Lizama PROF CHEM 8 (BAS METB)on Anion gap [Moles/Vol] 12.0 mmol/L Normal [facility] Comment on above: Performed By: #### U MICRO, ERUR #### [facility] [address] [place] [address] Dr. Alfredo Lizama Calcium [Mass/Vol] 8.6 mg/dL Normal 8.5-10.1 [facility] Comment on above: Performed By: #### U MICRO, ERUR #### [facility] [address] [place] [address] Dr. Alfredo Lizama Chloride [Moles/Vol] 101 mmol/L Normal 98-107 [facility] Comment on above: Performed By: #### U MICRO, ERUR #### [facility] [address] [address] [address] Alfredo Lizama CO2 [Moles/Vol] 28.0 mmol/L Normal 21.0-32.0 [facility] Comment on above: Performed By: #### U MICRO, ERUR #### [facility] [address] [address] [address] Alfredo Lizama Creatinine [Mass/Vol] 0.77 mg/dL Normal 0.55-1.02 [facility] Comment on above: Performed By: #### U MICRO, ERUR #### [facility] [address] [address] [address] Alfredo Lizama EGFR-AF GRENADIAN >60 Normal >=60 [facility] Comment on above: Performed By: #### U MICRO, ERUR #### [facility] [address] [place] [address] Dr. Alfredo Lizama EGFR-NON AF GRENADIAN >60 Normal >=60 [facility] Comment on above: Performed By: #### U MICRO, ERUR #### [facility] [address] [address] [address] Alfredo Lizama Glucose [Mass/Vol] 96 mg/dL Normal 74-106 [facility] Comment on above: Performed By: #### U MICRO, ERUR #### [facility] [address] [place] [address] Dr. Alfredo Lizama Potassium [Moles/Vol] 4.0 mmol/L Normal 3.5-5.1 [facility] Comment on above: Performed By: #### U MICRO, ERUR #### [facility] [address] [place] [address] Dr. Alfredo Lizama Sodium [Moles/Vol] 137 mmol/L Normal 136-145 [facility] Comment on above: Performed By: #### U MICRO, ERUR #### [facility] [address] [place] [address] Dr. Alfredo Lizama Urea nitrogen [Mass/Vol] 7.0 mg/dL Normal 7.0-18.0 [facility] Comment on above: Performed By: #### U MICRO, ERUR #### [facility] [address] [address] [address] Alfredo Lizama Urea nitrogen/Creatinine [Mass ratio] 9.1 mg/mg Normal [facility] Comment on above: Performed By: #### U MICRO, ERUR #### [facility] [address] [place] [address] Dr. Alfredo Lizama URINE MICROSCOPIC ONLYon BACTERIA MODERATE Abnormal NONE SEEN [facility] Comment on above: Performed By: #### U MICRO, ERUR #### [facility] [address] [place] [address] Dr. Alfredo Lizama Bacteria identified Cx Nom (U) INDICATED Normal [facility] Comment on above: Performed By: #### U MICRO, ERUR #### [facility] [address] [place] [address] Dr. Alfredo Lizama CAST NONE SEEN Normal NONE SEEN [facility] Comment on above: Performed By: #### U MICRO, ERUR #### [facility] [address] [place] [address] Dr. Alfredo Lizama Crystals LM Nom (Urine sed) NONE SEEN Normal NONE SEEN [facility] Comment on above: Performed By: #### U MICRO, ERUR #### [facility] [address] [place] [address] Dr. Alfredo Lizama Epithelial cells LM Ql (Urine sed) FEW Abnormal NONE SEEN /RARE [facility] Comment on above: Performed By: #### U MICRO, ERUR #### [facility] [address] [place] [address] Dr. Alfredo Lizama MUCOUS NONE SEEN Normal NONE SEEN [facility] Comment on above: Performed By: #### U MICRO, ERUR #### [facility] [address] [place] [address] Dr. Alfredo Lizama RBC 2-5 Abnormal 0-2 [facility] Comment on above: Performed By: #### U MICRO, ERUR #### [facility] [address] [place] [address] Dr. Alfredo Lizama WBC 10-20 Abnormal NONE SEEN [facility] Comment on above: Performed By: #### U MICRO, ERUR #### [facility] [address] [place] [address] Dr. Alfredo Lizama CULTURE URINEon 04-10-2022 CULTURE [...] le <=20 S F Normal [facility] Comment on above: Performed By: #### U MICRO, ERUR #### [facility] [address] [place] [address] Dr. Alfredo Lizama ER URINE PROFILEon Bilirubin Ql (U) Negative Normal NEGATIVE [facility] Comment on above: Performed By: #### U MICRO, ERUR #### [facility] [address] [place] [address] Dr. Alfredo Lizama Clarity (U) CLOUDY Abnormal CLEAR [facility] Comment on above: Performed By: #### U MICRO, ERUR #### [facility] [address] [address] [address] Alfredo Lizama Color (U) YELLOW Normal YELLOW [facility] Comment on above: Performed By: #### U MICRO, ERUR #### [facility] [address] [address] [address] Alfredo Lizama ERUBYROND A micrscopic examina tion will be performed if indicated. Normal [facility] Comment on above: Performed By: #### U MICRO, ERUR #### [facility] [address] [address] [address] Alfredo Lizama Glucose Ql (U) Negative Normal NEGATIVE [facility] Comment on above: Performed By: #### U MICRO, ERUR #### [facility] [address] [place] [address] Dr. Alfredo Lizama Hemoglobin Ql (U) SMALL Abnormal NEGATIVE [facility] Comment on above: Performed By: #### U MICRO, ERUR #### [facility] [address] [address] [address] Alfredo Lizama Ketones Ql (U) Negative Normal NEGATIVE [facility] Comment on above: Performed By: #### U MICRO, ERUR #### [facility] [address] [place] [address] Dr. Alfredo Lizama LEUKOCYTES LARGE Abnormal NEGATIVE [facility] Comment on above: Performed By: #### U MICRO, ERUR #### [facility] [address] [place] [address] Dr. Alfredo Lizama Nitrite Ql (U) Negative Normal NEGATIVE [facility] Comment on above: Performed By: #### U MICRO, ERUR #### [facility] [address] [address] [address] Alfredo Lizama pH (U) 7.0 [pH] Normal 5-9 [facility] Comment on above: Performed By: #### U MICRO, ERUR #### [facility] [address] [place] [address] Dr. Alfredo Lizama SPEC GRAVITY <=1.005 Abnormal 1.005-<=1.0 25 [facility] Comment on above: Performed By: #### U MICRO, ERUR #### [facility] [address] [place] [address] Dr. Alfredo Lizama UA PROTEIN Negative Normal NEGATIVE/ TRACE [facility] Comment on above: Performed By: #### U MICRO, ERUR #### [facility] [address] [place] [address] Dr. Alfredo Lizama UR MICRO IND INDICATED Normal [facility] Comment on above: Performed By: #### U MICRO, ERUR #### [facility] [address] [place] [address] Dr. Alfredo Lizama Urobilinogen Qn (U) 0.2 {Tesha'U}/dL Normal 0.2 - 1. 0 [facility] Comment on above: Performed By: #### U MICRO, ERUR #### [facility] [address] [place] [address] Dr. Alfredo Lizama URINE MICROSCOPIC ONLYon BACTERIA MODERATE Abnormal NONE SEEN [facility] Comment on above: Performed By: #### U MICRO, ERUR #### [facility] [address] [place] [address] Dr. Alfredo Lizama Bacteria identified Cx Nom (U) INDICATED Normal [facility] Comment on above: Performed By: #### U MICRO, ERUR #### [facility] [address] [place] [address] Dr. Alfredo Lizama CAST NONE SEEN Normal NONE SEEN [facility] Comment on above: Performed By: #### U MICRO, ERUR #### [facility] [address] [address] [address] Alfredo Lizama Crystals LM Nom (Urine sed) NONE SEEN Normal NONE SEEN [facility] Comment on above: Performed By: #### U MICRO, ERUR #### [facility] [address] [place] [address] Dr. Alfredo Lizama Epithelial cells LM Ql (Urine sed) FEW Abnormal NONE SEEN /RARE [facility] Comment on above: Performed By: #### U MICRO, ERUR #### [facility] [address] [place] [address] Dr. Alfredo Lizama MUCOUS NONE SEEN Normal NONE SEEN [facility] Comment on above: Performed By: #### U MICRO, ERUR #### [facility] [address] [address] [address] Alfredo Lizama RBC 5-10 Abnormal 0-2 [facility] Comment on above: Performed By: #### U MICRO, ERUR #### [facility] [address] [address] [address] Alfredo Lizama WBC (U) [#/Vol] /uL Abnormal NONE SEEN [facility] Comment on above: Performed By: #### U MICRO, ERUR #### [facility] [address] [address] [address] Alfredo Lizama Basic Metabolic Panelon 11-03 Calcium [Mass/Vol] 8.9 mg/dL Normal 8.2-10.2 [facility] Comment on above: Performed By: #### C BC, CMP, PAB #### [facility] [address] [place] [address] [place] Chloride [Moles/Vol] 101 mmol/L Normal 95-114 [facility] Comment on above: Performed By: #### C BC, CMP, PAB #### [facility] [address] [place] [address] [place] CO2 [Moles/Vol] 29.0 mmol/L Normal 22.0-30.0 [facility] Comment on above: Performed By: #### C BC, CMP, PAB #### [facility] [address] [place] [address] [place] Creatinine [Mass/Vol] 0.48 mg/dL Normal 0.44-1.03 [facility] Comment on above: Performed By: #### C BC, CMP, PAB #### [facility] [address] [place] [address] [place] Creatinine Clr Calc Pharmacy 150.29 Normal [facility] Comment on above: Result Comment: PERF ORMED BY: [facility] [address] [place] [address] PATHOLOGIST CRAYON SAWYER HUY COX M.D. Performed By: #### C BC, CMP, PAB #### [facility] [address] [place] [address] [place] Estimated GFR ( July > 60 Normal [facility] Comment on above: Result Comment: GFR estimated reference range: According to KDOQI guidelines, <60 ml/min/1.73m2 is sufficient to diagnose a patient with chronic kidney disease. Performed By: #### C DARIUS PATEL, PAB #### [facility] [address] [place] [address] [place] Estimated GFR (Non- Am > 60 Normal [facility] Comment on above: Performed By: #### C DARIUS PATEL, PAB #### [facility] [address] Glucose [Mass/Vol] 111 mg/dL High 70-100 [facility] Comment on above: Result Comment: [place] om Glucose Reference Range is dependent on time and content of last meal. Glucose of more than 200 mg/dL in a nonstressed, ambulatory subject supports the diagnosis of Diabetes Mellitus. ADA recommended reference range Performed By: #### C DARIUS PATEL, PAB #### [address] Potassium [Moles/Vol] 3.6 mmol/L Normal 3.5-5.1 [facility] Comment on above: Performed By: #### C DARIUS PATEL, PAB #### [address] Sodium [Moles/Vol] 138 mmol/L Normal 136-146 [facility] Comment on above: Performed By: #### C DARIUS PATEL, PAB #### [place] [address] [place] Urea nitrogen [Mass/Vol] 10 mg/dL Normal 9-23 [facility] Comment on above: Performed By: #### C DARIUS PATEL, PAB #### [address] Complete Blood Count Auto Di ffon 11-19-2021 Basophils (Bld) [#/Vol] 0.1 10*3/uL Normal 0.0-0.2 [facility] Comment on above: Result Comment: PERF ORMED BY: [place] [address] PATHOLOGIST CRAYON SAWYER HUY COX M.D. Performed By: #### C BC, CMP, PAB #### [address] Basophils/100 WBC (Bld) 0.8 % Normal . [facility] Comment on above: Performed By: #### C BC, CMP, PAB #### [address] Eosinophils (Bld) [#/Vol] 0.4 10*3/uL Normal 0.0-0.45 [facility] Comment on above: Performed By: #### C BC, CMP, PAB #### [address] Eosinophils/100 WBC (Bld) 5.8 % Normal . [facility] Comment on above: Performed By: #### C BC, CMP, PAB #### [address] Erythrocyte distribution width (RBC) [Ratio] 14.3 % Normal 11.9-15.3 [facility] Comment on above: Performed By: #### C BC, CMP, PAB #### [address] Hematocrit (Bld) [Volume fraction] 36.0 % Normal 34.0-46.4 [facility] Comment on above: Performed By: #### C BC, CMP, PAB #### [address] Hemoglobin (Bld) [Mass/Vol] 11.9 g/dL Normal 11.8-15.4 [facility] Comment on above: Performed By: #### C BC, CMP, PAB #### [address] Lymphocytes (Bld) [#/Vol] 2.7 10*3/uL Normal 1.00-4.8 [facility] Comment on above: Performed By: #### C BC, CMP, PAB #### [address] [address] [place] [address] [place] Lymphocytes/100 WBC (Bld) 37.6 % Normal . [facility] Comment on above: Performed By: #### C BC, CMP, PAB #### [facility] [address] MCH (RBC) [Entitic mass] 28.1 pg Normal 24.7-34.3 [facility] Comment on above: Performed By: #### C BC, CMP, PAB #### [facility] [address] MCV (RBC) [Entitic vol] 85.3 fL Normal 80-100 [facility] Comment on above: Performed By: #### C BC, CMP, PAB #### [address] Mean Corpuscular HGB Conc 32.9 g/dL Normal 32.0-35.0 [facility] Comment on above: Performed By: #### C BC, CMP, PAB #### [place] [address] [place] Monocytes (Bld) [#/Vol] 0.4 10*3/uL Normal 0.0-0.8 [facility] Comment on above: Performed By: #### C BC, CMP, PAB #### [address] Monocytes/100 WBC (Bld) 5.2 % Normal . [facility] Comment on above: Performed By: #### C BC, CMP, PAB #### [facility] [address] [place] [address] [place] Neutrophils (Bld) [#/Vol] 3.7 10*3/uL Normal 1.8-7.7 [facility] Comment on above: Performed By: #### C BC, CMP, PAB #### [facility] [address] [place] [address] [place] Neutrophils/100 WBC (Bld) 50.6 % Normal . [facility] Comment on above: Performed By: #### C BC, CMP, PAB #### [address] [place] [address] [place] Nucleated RBC/100 WBC (Bld) [Ratio] 0.0 % Normal 0-0.5 [facility] Comment on above: Performed By: #### C BC, CMP, PAB #### [address] Platelet mean volume (Bld) [Entitic vol] 7.6 fL Normal 6.3-10.7 [facility] Comment on above: Performed By: #### C BC, CMP, PAB #### [facility] [address] Platelets (Bld) [#/Vol] 252 10*3/uL Normal 150-450 [facility] Comment on above: Performed By: #### C BC, CMP, PAB #### [address] RBC (Bld) [#/Vol] 4.22 10*6/uL Normal 3.60-5.00 [facility] Comment on above: Performed By: #### C BC, CMP, PAB #### [address] WBC (Bld) [#/Vol] 7.2 10*3/uL Normal 4.5-11.0 [facility] Comment on above: Performed By: #### C BC, CMP, PAB #### [address] Ammoniaon 11-11-2021 Ammonia (P) [Moles/Vol] 26 umol/L Normal 11-35 [facility] Comment on above: Result Comment: PERF ORMED BY: [place] [address] PATHOLOGIST CRAYON SAWYER HUY COX M.D. Performed By: #### C BC, CMP, PAB #### [address] Hepatic Panelon 11-11-2021 Albumin [Mass/Vol] 3.0 g/dL Low 3.2-5.5 [facility] Comment on above: Performed By: #### C BC, CMP, PAB #### [facility] [address] Albumin/Globulin [Mass ratio] 1.0 {ratio} Normal [facility] Comment on above: Performed By: #### C BC, CMP, PAB #### [address] ALP [Catalytic activity/Vol] 187 U/L High 32-92 [facility] Comment on above: Result Comment: PERF ORMED BY: [place] [address] PATHOLOGIST CRAYON SAWYER HUY COX M.D. Performed By: #### C BC, CMP, PAB #### [address] ALT [Catalytic activity/Vol] 54 U/L Normal 10-60 [facility] Comment on above: Performed By: #### C BC, CMP, PAB #### [address] AST [Catalytic activity/Vol] 39 U/L Normal 10-42 [facility] Comment on above: Performed By: #### C BC, CMP, PAB #### [address] Bilirubin [Mass/Vol] 0.3 mg/dL Normal 0.3-1.2 [facility] Comment on above: Performed By: #### C BC, CMP, PAB #### [address] Bilirubin,Indirect Not performed Normal [facility] Comment on above: Performed By: #### C BC, CMP, PAB #### [facility] [address] [place] [address] Bilirubin.indirect [Mass/Vol] mg/dL Normal 0.0-0.4 [facility] Comment on above: Performed By: #### C BC, CMP, PAB #### [address] Globulin (S) [Mass/Vol] 3.0 g/dL Normal [facility] Comment on above: Performed By: #### C BC, CMP, PAB #### [facility] [address] [place] [address] Protein [Mass/Vol] 6.0 g/dL Low 6.1-7.9 [facility] Comment on above: Performed By: #### C BC, CMP, PAB #### [facility] [address] [place] [address] Hepatitis Acute Panelon 03-0 HBsAg Screen Negative Normal Negative [facility] Comment on above: Performed By: #### C BC, CMP, PAB #### [address] Hepatitis A Antibody IgM Negative Normal Negative [facility] Comment on above: Performed By: #### C BC, CMP, PAB #### [address] Hepatitis B Core Antibody IgM Negative Normal Negative [facility] Comment on above: Performed By: #### C BC, CMP, PAB #### [facility] [address] [place] [address] Hepatitis C Virus Antibody 0.2 Normal 0.0-0.9 [facility] Comment on above: Performed By: #### C BC, CMP, PAB #### [address] Interpretation Hepatitis C Normal . [facility] Comment on above: Result Comment: Nega tive Not infected with HCV, unless recent infection is suspected or other evidence exists to indicate HCV infection. Performed at: - [facility] [id number] Fire Alarm Operator: Pedro Luis José PhD, Phone: [phone] PERFORMED BY: [place] [address] PATHOLOGIST CRAYON SAWYER HUY COX M.D. Performed By: #### C BC, CMP, PAB #### [address] US liveron 11-11-2021 liver [facility] Main [address] [address] Ultrasound Report Signed Patient: Morales Lee MR#: [id number] : 1975 Acct:[id number] Age/Sex: 46 / F ADM Date: 10/29/21 Loc: Room: [address] [place] [address] Type: ADM IN Attending Dr: Richard Acevedo [...] Alexandru Pond M.D.11/11/2021 10:23 AM Dictation Location: [place] [address] Tech: Ermelinda Diaz Transcribed By: CORTNEY 11/11/21 1023 Dictated By: Alexandru Pond DO 11/11/21 1018 Signed By: 11/11/21 1023 Normal [facility] Complete Blood Count Auto Di ffon 11-10-2021 Basophils (Bld) [#/Vol] 0.1 10*3/uL Normal 0.0-0.2 [facility] Comment on above: Result Comment: PERF ORMED BY: [address] [place] [address] PATHOLOGIST CRAYON SAWYER HUY COX M.D. Performed By: #### C BC #### [address] Basophils/100 WBC (Bld) 1.2 % Normal . [facility] Comment on above: Performed By: #### C BC #### [address] Eosinophils (Bld) [#/Vol] 0.3 10*3/uL Normal 0.0-0.45 [facility] Comment on above: Performed By: #### C BC #### [address] Eosinophils/100 WBC (Bld) 5.9 % Normal . [facility] Comment on above: Performed By: #### C BC #### [address] Erythrocyte distribution width (RBC) [Ratio] 14.2 % Normal 11.9-15.3 [facility] Comment on above: Performed By: #### C BC #### [address] Hematocrit (Bld) [Volume fraction] 37.1 % Normal 34.0-46.4 [facility] Comment on above: Performed By: #### C BC #### [address] Hemoglobin (Bld) [Mass/Vol] 12.3 g/dL Normal 11.8-15.4 [facility] Comment on above: Performed By: #### C BC #### [address] Lymphocytes (Bld) [#/Vol] 2.0 10*3/uL Normal 1.00-4.8 [facility] Comment on above: Performed By: #### C BC #### [address] Lymphocytes/100 WBC (Bld) 36.5 % Normal . [facility] Comment on above: Performed By: #### C BC #### [address] MCH (RBC) [Entitic mass] 28.6 pg Normal 24.7-34.3 [facility] Comment on above: Performed By: #### C BC #### [facility] [address] MCV (RBC) [Entitic vol] 86.5 fL Normal 80-100 [facility] Comment on above: Performed By: #### C BC #### [facility] [address] Mean Corpuscular HGB Conc 33.1 g/dL Normal 32.0-35.0 [facility] Comment on above: Performed By: #### C BC #### [facility] [address] Monocytes (Bld) [#/Vol] 0.3 10*3/uL Normal 0.0-0.8 [facility] Comment on above: Performed By: #### C BC #### [facility] [address] Monocytes/100 WBC (Bld) 5.3 % Normal . [facility] Comment on above: Performed By: #### C BC #### [facility] [address] Neutrophils (Bld) [#/Vol] 2.8 10*3/uL Normal 1.8-7.7 [facility] Comment on above: Performed By: #### C BC #### [facility] [address] Neutrophils/100 WBC (Bld) 51.1 % Normal . [facility] Comment on above: Performed By: #### C BC #### [facility] [address] [place] [address] [place] Nucleated RBC/100 WBC (Bld) [Ratio] 0.1 % Normal 0-0.5 [facility] Comment on above: Performed By: #### C BC #### [facility] [address] Platelet mean volume (Bld) [Entitic vol] 7.8 fL Normal 6.3-10.7 [facility] Comment on above: Performed By: #### C BC #### [facility] [address] [place] [id number] [facility] Platelets (Bld) [#/Vol] 214 10*3/uL Normal 150-450 [facility] Comment on above: Performed By: #### C BC #### [facility] [address] RBC (Bld) [#/Vol] 4.28 10*6/uL Normal 3.60-5.00 [facility] Comment on above: Performed By: #### C BC #### [facility] [address] WBC (Bld) [#/Vol] 5.4 10*3/uL Normal 4.5-11.0 [facility] Comment on above: Performed By: #### C BC #### [facility] [address] [place] [address] Comprehensive Metabolic Pane shree 11-10-2021 Albumin [Mass/Vol] 2.9 g/dL Low 3.2-5.5 [facility] Comment on above: Performed By: #### C BC, CMP, PAB #### [facility] [address] [place] [address] Albumin/Globulin [Mass ratio] 0.9 {ratio} Normal [facility] Comment on above: Performed By: #### C BC, CMP, PAB #### [facility] [address] ALP [Catalytic activity/Vol] 201 U/L High 32-92 [facility] Comment on above: Performed By: #### C BC, CMP, PAB #### [facility] [address] [place] [phone] [place] ALT [Catalytic activity/Vol] 67 U/L High 10-60 [facility] Comment on above: Performed By: #### C BC, CMP, PAB #### [facility] [address] AST [Catalytic activity/Vol] 66 U/L High 10-42 [facility] Comment on above: Performed By: #### C BC, CMP, PAB #### [facility] [address] [place] [address] [place] Bilirubin [Mass/Vol] 0.4 mg/dL Normal 0.3-1.2 [facility] Comment on above: Performed By: #### C BC, CMP, PAB #### [facility] [address] [place] [address] [place] Calcium [Mass/Vol] 8.7 mg/dL Normal 8.2-10.2 [facility] Comment on above: Performed By: #### C BC, CMP, PAB #### [facility] [address] Chloride [Moles/Vol] 100 mmol/L Normal 95-114 [facility] Comment on above: Performed By: #### C BC, CMP, PAB #### [address] CO2 [Moles/Vol] 26.4 mmol/L Normal 22.0-30.0 [facility] Comment on above: Performed By: #### C BC, CMP, PAB #### [address] Creatinine [Mass/Vol] 0.50 mg/dL Normal 0.44-1.03 [facility] Comment on above: Performed By: #### C BC, CMP, PAB #### [place] [address] [place] Creatinine Clr Calc Pharmacy 142.11 Normal [facility] Comment on above: Result Comment: PERF ORMED BY: [place] [address] PATHOLOGIST CRAYON SAWYER HUY COX M.D. Performed By: #### C BC, CMP, PAB #### [facility] [address] [place] [address] Estimated GFR ( July > 60 Normal [facility] Comment on above: Result Comment: GFR estimated reference range: According to KDOQI guidelines, <60 ml/min/1.73m2 is sufficient to diagnose a patient with chronic kidney disease. Performed By: #### C BC, CMP, PAB #### [facility] [address] Estimated GFR (Non- Am > 60 Normal [facility] Comment on above: Performed By: #### C DARIUS PATEL, PAB #### [facility] [address] Globulin (S) [Mass/Vol] 3.1 g/dL Normal [facility] Comment on above: Performed By: #### C DARIUS PATEL, PAB #### [address] Glucose [Mass/Vol] 110 mg/dL High 70-100 [facility] Comment on above: Result Comment: [facility] Glucose Reference Range is dependent on time and content of last meal. Glucose of more than 200 mg/dL in a nonstressed, ambulatory subject supports the diagnosis of Diabetes Mellitus. ADA recommended reference range Performed By: #### C DARIUS PATEL, PAB #### [address] Potassium [Moles/Vol] 4.0 mmol/L Normal 3.5-5.1 [facility] Comment on above: Performed By: #### C DARIUS PATEL, PAB #### [address] Protein [Mass/Vol] 6.0 g/dL Low 6.1-7.9 [facility] Comment on above: Performed By: #### C DARIUS PATEL, PAB #### [address] Sodium [Moles/Vol] 136 mmol/L Normal 136-146 [facility] Comment on above: Performed By: #### C JORGE CMP, PAB #### [address] Urea nitrogen [Mass/Vol] 8 mg/dL Low 9-23 [facility] Comment on above: Performed By: #### C BC CMP, PAB #### [place] [address] [place] Dipstick and Microscopicon 0 3-08-2022 Appearance (U) Turbid Critically abnormal Clear [facility] Comment on above: Order Comment: Name Collection Type:: Alvares Catheter Performed By: #### C BC, CMP, PAB #### [facility] [address] [place] [phone] [place] Bacteria,Urine 3+ High None Seen [facility] Comment on above: Order Comment: Name Collection Type:: Alvares Catheter Performed By: #### C BC, CMP, PAB #### [facility] [address] [place] [phone] [place] Bilirubin,Urine Negative Normal Negative [facility] Comment on above: Order Comment: Name Collection Type:: Alvares Catheter Performed By: #### C BC, CMP, PAB #### [facility] [address] [place] [address] [place] Color (U) Yellow Normal Yellow [facility] Comment on above: Order Comment: Name Collection Type:: Alvares Catheter Performed By: #### C BC, CMP, PAB #### [facility] [address] [place] [address] [place] Glucose Ql (U) Normal Normal Normal [facility] Comment on above: Order Comment: Name Collection Type:: Alvares Catheter Performed By: #### C BC, CMP, PAB #### [facility] [address] [place] [address] [place] Hyaline Casts,Urine None Seen Normal 0-1 [facility] Comment on above: Order Comment: Name Collection Type:: Alvares Catheter Performed By: #### C BC, CMP, PAB #### [facility] [address] [place] [phone] [place] Ketones Ql (U) Negative Normal Negative [facility] Comment on above: Order Comment: Name Collection Type:: Alvares Catheter Performed By: #### C BC, CMP, PAB #### [facility] [address] [place] [phone] [place] Leukocyte esterase Test strip Ql (U) 3+ High Negative [facility] Comment on above: Order Comment: Name Collection Type:: Alvares Catheter Performed By: #### C BC, CMP, PAB #### [facility] [address] [place] [phone] [place] Nitrite,Urine Positive High Negative [facility] Comment on above: Order Comment: Name Collection Type:: Alvares Catheter Performed By: #### C BC, CMP, PAB #### [facility] [address] [place] [address] Occult Blood,Urine 2+ High Negative [facility] Comment on above: Order Comment: Name Collection Type:: Alvares Catheter Result Comment: PERF ORMED BY: [place] [address] PATHOLOGIST CRAYON SAWYER HUY COX M.D. Performed By: #### C BC, CMP, PAB #### [facility] [address] [place] [address] Other Casts,Urine None Seen Normal None Seen [facility] Comment on above: Order Comment: Name Collection Type:: Alvares Catheter Result Comment: PERF ORMED BY: [place] [address] PATHOLOGIST CRAYON SAWYER HUY COX M.D. Performed By: #### C BC, CMP, PAB #### [facility] [address] [place] [address] pH (U) 8.5 [pH] Normal 5.0-9.0 [facility] Comment on above: Order Comment: Name Collection Type:: Alvares Catheter Performed By: #### C BC, CMP, PAB #### [facility] [address] [place] [address] Protein,Urine Negative Normal Negative [facility] Comment on above: Order Comment: Name Collection Type:: Alvares Catheter Performed By: #### C BC, CMP, PAB #### [facility] [address] [place] [address] [place] RBC,Urine 1-2 Normal 0-4 [facility] Comment on above: Order Comment: Name Collection Type:: Alvares Catheter Performed By: #### C BC, CMP, PAB #### [facility] [address] [place] [address] [place] Specificy [place],Urine 1.006 Normal 1.001-1.030 [facility] Comment on above: Order Comment: Name Collection Type:: Alvares Catheter Performed By: #### C BC, CMP, PAB #### [facility] [address] [place] [address] [place] Squamous Epithelial Cell,Urine 3-4 High 0-2 [facility] Comment on above: Order Comment: Name Collection Type:: Alvares Catheter Performed By: #### C BC, CMP, PAB #### [facility] [address] Triple Phosphate Crystal,Urine 2+ Normal [facility] Comment on above: Order Comment: Name Collection Type:: Alvares Catheter Performed By: #### C BC, CMP, PAB #### [facility] [address] Urobilinogen,Urine Normal Normal Normal [facility] Comment on above: Order Comment: Name Collection Type:: Alvares Catheter Performed By: #### C BC, CMP, PAB #### [address] WBC,Urine 20-49 High 0-4 [facility] Comment on above: Order Comment: Name Collection Type:: Alvares Catheter Performed By: #### C BC, CMP, PAB #### [address] Urine Cultureon 11-10-2021 Bacteria identified Cx Nom (U) ORGANISM: Providencia rettgeri (O:PRORET) [place] Count >100,000 Aerobic JOSE Charge (NUC86) SUSCEPTIBILITY [...] <2 Tobramycin S <4 Trimethoprim/Sulfamethoxazo le R > S = SUSCEPTIBLE I = INTERMEDIATE R [...] RESISTANT TO ALL B-LACTAM DRUGS. PERFORMED BY: [place] [address] PATHOLOGIST CRAYON SAWYER HUY COX M.D. [facility] Comment on above: Performed By: #### C BC, CMP, PAB #### [facility] [address] [place] [address] Basic Metabolic Panelon 03-0 Calcium [Mass/Vol] 8.7 mg/dL Normal 8.2-10.2 [facility] Comment on above: Performed By: #### B MP, CBC #### [facility] [address] [place] [address] [place] Chloride [Moles/Vol] 102 mmol/L Normal 95-114 [facility] Comment on above: Performed By: #### B MP, CBC #### [facility] [address] [place] [address] [place] CO2 [Moles/Vol] 25.5 mmol/L Normal 22.0-30.0 [facility] Comment on above: Performed By: #### B MP, CBC #### [facility] [address] [place] [address] [place] Creatinine [Mass/Vol] 0.71 mg/dL Normal 0.44-1.03 [facility] Comment on above: Performed By: #### B MP, CBC #### [facility] [address] [place] [address] [place] Creatinine Clr Calc Pharmacy 100.08 [facility] Comment on above: Result Comment: PERF ORMED BY: [address] [place] [address] PATHOLOGIST CRAYON SAWYER HUY COX M.D. Performed By: #### B MP, CBC #### [address] Estimated GFR ( July > 60 Normal [facility] Comment on above: Result Comment: GFR estimated reference range: According to KDOQI guidelines, <60 ml/min/1.73m2 is sufficient to diagnose a patient with chronic kidney disease. Performed By: #### B MP, CBC #### [address] Estimated GFR (Non- Am > 60 Normal [facility] Comment on above: Performed By: #### B MP, CBC #### [address] Glucose [Mass/Vol] 104 mg/dL High 70-100 [facility] Comment on above: Result Comment: [place] [facility] Glucose Reference Range is dependent on time and content of last meal. Glucose of more than 200 mg/dL in a nonstressed, ambulatory subject supports the diagnosis of Diabetes Mellitus. ADA recommended reference range Performed By: #### B MP, CBC #### [address] Potassium [Moles/Vol] 4.1 mmol/L Normal 3.5-5.1 [facility] Comment on above: Performed By: #### B MP, CBC #### [place] [address] [place] Sodium [Moles/Vol] 137 mmol/L Normal 136-146 [facility] Comment on above: Performed By: #### B MP, CBC #### [place] [address] [place] Urea nitrogen [Mass/Vol] 10 mg/dL Normal 9-23 [facility] Comment on above: Performed By: #### B MP, CBC #### [address] Complete Blood Count Auto Di ffon 11-06-2021 Basophils (Bld) [#/Vol] 0.1 10*3/uL Normal 0.0-0.2 [facility] Comment on above: Result Comment: PERF ORMED BY: [place] [address] PATHOLOGIST CRAYON SAWYER HUY COX M.D. Performed By: #### B MP, CBC #### [address] Basophils/100 WBC (Bld) 0.8 % Normal . [facility] Comment on above: Performed By: #### B MP, CBC #### [facility] [address] [place] [address] [place] Eosinophils (Bld) [#/Vol] 0.4 10*3/uL Normal 0.0-0.45 [facility] Comment on above: Performed By: #### B MP, CBC #### [place] [address] [place] Eosinophils/100 WBC (Bld) 5.5 % Normal . [facility] Comment on above: Performed By: #### B MP, CBC #### [address] Erythrocyte distribution width (RBC) [Ratio] 14.2 % Normal 11.9-15.3 [facility] Comment on above: Performed By: #### B MP, CBC #### [facility] [address] [place] [address] Hematocrit (Bld) [Volume fraction] 36.0 % Normal 34.0-46.4 [facility] Comment on above: Performed By: #### B MP, CBC #### [place] [address] [place] Hemoglobin (Bld) [Mass/Vol] 12.0 g/dL Normal 11.8-15.4 [facility] Comment on above: Performed By: #### B MP, CBC #### [place] [address] [place] Lymphocytes (Bld) [#/Vol] 2.4 10*3/uL Normal 1.00-4.8 [facility] Comment on above: Performed By: #### B MP, CBC #### [address] Lymphocytes/100 WBC (Bld) 35.2 % Normal . [facility] Comment on above: Performed By: #### B MP, CBC #### [address] MCH (RBC) [Entitic mass] 28.9 pg Normal 24.7-34.3 [facility] Comment on above: Performed By: #### B MP, CBC #### [address] MCV (RBC) [Entitic vol] 86.4 fL Normal 80-100 [facility] Comment on above: Performed By: #### B MP, CBC #### [address] Mean Corpuscular HGB Conc 33.4 g/dL Normal 32.0-35.0 [facility] Comment on above: Performed By: #### B MP, CBC #### [place] [address] [place] Monocytes (Bld) [#/Vol] 0.3 10*3/uL Normal 0.0-0.8 [facility] Comment on above: Performed By: #### B MP, CBC #### [address] Monocytes/100 WBC (Bld) 4.8 % Normal . [facility] Comment on above: Performed By: #### B MP, CBC #### [address] Neutrophils (Bld) [#/Vol] 3.7 10*3/uL Normal 1.8-7.7 [facility] Comment on above: Performed By: #### B MP, CBC #### [address] Neutrophils/100 WBC (Bld) 53.7 % Normal . [facility] Comment on above: Performed By: #### B MP, CBC #### [address] [place] [address] [place] Nucleated RBC/100 WBC (Bld) [Ratio] 0.0 % Normal 0-0.5 [facility] Comment on above: Performed By: #### B MP, CBC #### [facility] [address] Platelet mean volume (Bld) [Entitic vol] 8.2 fL Normal 6.3-10.7 [facility] Comment on above: Performed By: #### B MP, CBC #### [facility] [address] [place] [address] [place] Platelets (Bld) [#/Vol] 235 10*3/uL Normal 150-450 [facility] Comment on above: Performed By: #### B MP, CBC #### [facility] [address] [place] [address] [place] RBC (Bld) [#/Vol] 4.17 10*6/uL Normal 3.60-5.00 [facility] Comment on above: Performed By: #### B MP, CBC #### [facility] [address] [place] [address] [place] WBC (Bld) [#/Vol] 6.9 10*3/uL Normal 4.5-11.0 [facility] Comment on above: Performed By: #### B MP, CBC #### [address] US venous duplex LE BIon US venous duplex LE BI [facility] Main Doyle [address] [place] [address] Ultrasound Report Signed Patient: Morales Lee MR#: [id number] : 1975 Acct:[id number] Age/Sex: 46 / F ADM Date: 10/29/21 Loc: Room: 2H2823-6 Type: ADM IN Attending Dr: Richard Acevedo [...] Carlos Neal MD11/04/2021 11:36 AM Dictation Location: [place] [address] Tech: Natalia Rivas Transcribed By: CORTNEY 11/04/21 1136 Dictated By: Juan Carlos Neal MD 11/04/21 1135 Signed By: 11/04/21 1136 Normal [facility] Complete Blood Count Auto Di ffon 10-30-2021 Basophils (Bld) [#/Vol] 0.0 10*3/uL Normal 0.0-0.2 [facility] Comment on above: Result Comment: PERF ORMED BY: [place] [address] PATHOLOGIST CRAYON SAWYER HUY COX M.D. Performed By: #### C BC, CMP, PAB #### [address] Basophils/100 WBC (Bld) 0.6 % Normal . [facility] Comment on above: Performed By: #### C BC, CMP, PAB #### [place] [address] [place] Eosinophils (Bld) [#/Vol] 0.4 10*3/uL Normal 0.0-0.45 [facility] Comment on above: Performed By: #### C BC, CMP, PAB #### [place] [address] [place] Eosinophils/100 WBC (Bld) 4.9 % Normal . [facility] Comment on above: Performed By: #### C BC, CMP, PAB #### [address] Erythrocyte distribution width (RBC) [Ratio] 14.3 % Normal 11.9-15.3 [facility] Comment on above: Performed By: #### C DARIUS PATEL, PAB #### [address] Hematocrit (Bld) [Volume fraction] 36.1 % Normal 34.0-46.4 [facility] Comment on above: Performed By: #### C JORGE CMP, PAB #### [address] Hemoglobin (Bld) [Mass/Vol] 12.1 g/dL Normal 11.8-15.4 [facility] Comment on above: Performed By: #### C DARIUS PATEL, PAB #### [address] Lymphocytes (Bld) [#/Vol] 2.8 10*3/uL Normal 1.00-4.8 [facility] Comment on above: Performed By: #### C JORGE CMP, PAB #### [address] Lymphocytes/100 WBC (Bld) 39.0 % Normal . [facility] Comment on above: Performed By: #### C DARIUS PATEL, PAB #### [address] MCH (RBC) [Entitic mass] 28.7 pg Normal 24.7-34.3 [facility] Comment on above: Performed By: #### C JORGE CMP, PAB #### [address] MCV (RBC) [Entitic vol] 85.7 fL Normal 80-100 [facility] Comment on above: Performed By: #### C JORGE CMP, PAB #### [address] Mean Corpuscular HGB Conc 33.4 g/dL Normal 32.0-35.0 [facility] Comment on above: Performed By: #### C BC CMP, PAB #### [place] [id number] [place] Monocytes (Bld) [#/Vol] 0.4 10*3/uL Normal 0.0-0.8 [facility] Comment on above: Performed By: #### C BC CMP, PAB #### [facility] [address] [place] [address] [place] Monocytes/100 WBC (Bld) 5.2 % Normal . [facility] Comment on above: Performed By: #### C BC CMP, PAB #### [facility] [address] [place] [address] [place] Neutrophils (Bld) [#/Vol] 3.6 10*3/uL Normal 1.8-7.7 [facility] Comment on above: Performed By: #### C JORGE CMP, PAB #### [facility] [address] [place] [address] [place] Neutrophils/100 WBC (Bld) 50.3 % Normal . [facility] Comment on above: Performed By: #### C JORGE CMP, PAB #### [facility] [address] [place] [address] [place] Nucleated RBC/100 WBC (Bld) [Ratio] 0.0 % Normal 0-0.5 [facility] Comment on above: Performed By: #### C JORGE CMP, PAB #### [facility] [address] [place] [address] [place] Platelet mean volume (Bld) [Entitic vol] 8.1 fL Normal 6.3-10.7 [facility] Comment on above: Performed By: #### C BC CMP, PAB #### [facility] [address] [place] [address] [place] Platelets (Bld) [#/Vol] 261 10*3/uL Normal 150-450 [facility] Comment on above: Performed By: #### C BC CMP, PAB #### [facility] [address] [place] [address] [place] RBC (Bld) [#/Vol] 4.22 10*6/uL Normal 3.60-5.00 [facility] Comment on above: Performed By: #### C BC CMP, PAB #### [facility] [address] WBC (Bld) [#/Vol] 7.2 10*3/uL Normal 4.5-11.0 [facility] Comment on above: Performed By: #### C BC, CMP, PAB #### [facility] [address] Comprehensive Metabolic Pane shree 10-30-2021 Albumin [Mass/Vol] 2.8 g/dL Low 3.2-5.5 [facility] Comment on above: Performed By: #### C BC, CMP, PAB #### [facility] [address] Albumin/Globulin [Mass ratio] 1.0 {ratio} Normal [facility] Comment on above: Performed By: #### C BC, CMP, PAB #### [facility] [address] ALP [Catalytic activity/Vol] 116 U/L High 32-92 [facility] Comment on above: Performed By: #### C BC, CMP, PAB #### [facility] [address] ALT [Catalytic activity/Vol] 20 U/L Normal 10-60 [facility] Comment on above: Performed By: #### C BC, CMP, PAB #### [facility] [address] AST [Catalytic activity/Vol] 22 U/L Normal 10-42 [facility] Comment on above: Performed By: #### C BC, CMP, PAB #### [facility] [address] Bilirubin [Mass/Vol] 0.5 mg/dL Normal 0.3-1.2 [facility] Comment on above: Performed By: #### C BC, CMP, PAB #### [facility] [address] Calcium [Mass/Vol] 8.7 mg/dL Normal 8.2-10.2 [facility] Comment on above: Performed By: #### C BC, CMP, PAB #### [facility] [address] [place] [address] [place] Chloride [Moles/Vol] 105 mmol/L Normal 95-114 [facility] Comment on above: Performed By: #### C BC, CMP, PAB #### [facility] [address] CO2 [Moles/Vol] 26.8 mmol/L Normal 22.0-30.0 [facility] Comment on above: Performed By: #### C BC, CMP, PAB #### [facility] [address] Creatinine [Mass/Vol] 0.51 mg/dL Normal 0.44-1.03 [facility] Comment on above: Performed By: #### C BC, CMP, PAB #### [facility] [address] [place] [address] [place] Creatinine Clr Calc Pharmacy 123.73 [facility] Comment on above: Performed By: #### C BC, CMP, PAB #### [facility] [address] Estimated GFR ( July > 60 [facility] Comment on above: Result Comment: GFR estimated reference range: According to KDOQI guidelines, <60 ml/min/1.73m2 is sufficient to diagnose a patient with chronic kidney disease. Performed By: #### C BC, CMP, PAB #### [facility] [address] Estimated GFR (Non- Am > 60 [facility] Comment on above: Performed By: #### C BC, CMP, PAB #### [facility] [address] [place] [address] [place] Globulin (S) [Mass/Vol] 2.8 g/dL [facility] Comment on above: Performed By: #### C BC, CMP, PAB #### [facility] [address] [place] [address] [place] Glucose [Mass/Vol] 115 mg/dL High 70-100 [facility] Comment on above: Result Comment: [place] Glucose Reference Range is dependent on time and content of last meal. Glucose of more than 200 mg/dL in a nonstressed, ambulatory subject supports the diagnosis of Diabetes Mellitus. ADA recommended reference range Performed By: #### C DARIUS PATEL, PAB #### [facility] [address] [place] [id number] [facility] Potassium [Moles/Vol] 3.7 mmol/L Normal 3.5-5.1 [facility] Comment on above: Performed By: #### C DARIUS PATEL, PAB #### [facility] [address] Protein [Mass/Vol] 5.6 g/dL Low 6.1-7.9 [facility] Comment on above: Performed By: #### C DARIUS PATEL, PAB #### [address] Sodium [Moles/Vol] 140 mmol/L Normal 136-146 [facility] Comment on above: Performed By: #### C DARIUS PATEL, PAB #### [place] [address] [place] Urea nitrogen [Mass/Vol] 7 mg/dL Low 9-23 [facility] Comment on above: Performed By: #### C DARIUS PATEL, PAB #### [place] [address] [place] Dipstick and Microscopicon 0 10-30-2021 Appearance (U) Clear Normal Clear [facility] Comment on above: Order Comment: Name Collection Type:: Voided Performed By: #### A ALYSSAUAKRIS, CUU #### [place] [address] [place] Bacteria,Urine 4+ High None Seen [facility] Comment on above: Order Comment: Name Collection Type:: Voided Performed By: #### A FLAVIO, CUU #### [place] [id number] [place] Bilirubin,Urine Negative Normal Negative [facility] Comment on above: Order Comment: Name Collection Type:: Voided Performed By: #### A FLAVIO, CUU #### [facility] [address] [place] [address] [place] Color (U) Yellow Normal Yellow [facility] Comment on above: Order Comment: Name Collection Type:: Voided Performed By: #### A DDONUAPLUS, CUU #### [facility] [address] [place], [place] [id number] [place] Glucose Ql (U) Normal Normal Normal [facility] Comment on above: Order Comment: Name Collection Type:: Voided Performed By: #### A DDONUAPLUS, CUU #### [place] [address] [place] Hyaline Casts,Urine 0-8 Normal 0-8 [facility] Comment on above: Order Comment: Name Collection Type:: Voided Result Comment: PERF ORMED BY: [place] [address] PATHOLOGIST CRAYON SAWYER HUY COX M.D. Performed By: #### A DDONUAPLUS, CUU #### [place] [address] [place] Ketones Ql (U) Negative Normal Negative [facility] Comment on above: Order Comment: Name Collection Type:: Voided Performed By: #### A DDONUAPLUS, CUU #### [place] [address] [place] Leukocyte esterase Test strip Ql (U) 3+ High Negative [facility] Comment on above: Order Comment: Name Collection Type:: Voided Performed By: #### A DDONUAPLUS, CUU #### [facility] [address] [place] [address] [place] Nitrite,Urine Positive High Negative [facility] Comment on above: Order Comment: Name Collection Type:: Voided Performed By: #### A DDONUAPLUS, CUU #### [facility] [address] [place] [address] [place] Occult Blood,Urine Negative Normal Negative [facility] Comment on above: Order Comment: Name Collection Type:: Voided Result Comment: PERF ORMED BY: [place] [address] PATHOLOGIST CRAYON SAWYER HUY COX M.D. Performed By: #### A DDONUAPLUS, CUU #### [address] pH (U) 5.5 [pH] Normal 5.0-9.0 [facility] Comment on above: Order Comment: Name Collection Type:: Voided Performed By: #### A DDONUAPLUS, CUU #### [address] Protein,Urine Negative Normal Negative [facility] Comment on above: Order Comment: Name Collection Type:: Voided Performed By: #### A DDONUAPLUS, CUU #### [address] RBC LM.HPF (Urine sed) [#/Area] 0 /[HPF] Normal 0-4 [facility] Comment on above: Order Comment: Name Collection Type:: Voided Performed By: #### A DDONUAPLUS, CUU #### [address] Specificy [place],Urine 1.012 Normal 1.001-1.030 [facility] Comment on above: Order Comment: Name Collection Type:: Voided Performed By: #### A DDONUAPLUS, CUU #### [address] Squamous Epithelial Cell,Urine 0-1 Normal 0-2 [facility] Comment on above: Order Comment: Name Collection Type:: Voided Performed By: #### A DDONUAPLUS, CUU #### [address] Urobilinogen,Urine Normal Normal Normal [facility] Comment on above: Order Comment: Name Collection Type:: Voided Performed By: #### A DDONUAPLUS, CUU #### [address] WBC,Urine 20-49 High 0-4 [facility] Comment on above: Order Comment: Name Collection Type:: Voided Performed By: #### A DDONUAPLUS, CUU #### [facility] [address] [place] [id number] [facility] Prealbuminon 10-30-2021 Prealbumin [Mass/Vol] 13.1 mg/dL Low 18.0-38.0 [facility] Comment on above: Result Comment: PERF ORMED BY: [place] [address] PATHOLOGIST CRAYON SAWYER HUY COX M.D. Performed By: #### C BC, CMP, PAB #### [facility] [address] [place] [id number] [facility] Urine Cultureon 10-30-2021 Bacteria identified Cx Nom (U) ORGANISM: Escherichia coli (O:ESCCOL) [place] Count >100,000 Aerobic JOSE Charge (NUC86) SUSCEPTIBILITY [...] RESISTANT TO ALL B-LACTAM DRUGS. PERFORMED BY: [facility] [address] [place] [address] PATHOLOGIST CRAYON SAWYER HUY COX M.D. Normal [facility] Comment on above: Performed By: #### A SERENA MUNIZ #### [place] [id number] [facility] COVID-19 FRon 10-29-2021 SARS-CoV-2 (COVID-19) RNA ADRIÁN+probe Ql (Unsp spec) Negative Normal Negative [facility] Comment on above: Order Comment: Healt hcare Worker?: N Result Comment: Testing for SARS-CoV-2 by RT-PCR This test was developed and its performance characteristics determined by [employer] and validated at the [facility]. This test has not been FDA cleared [...] is terminated or revoked sooner. PERFORMED BY: [place] [id number] PATHOLOGIST CRAYON SAWYER HUY COX M.D. Performed By: #### C OVID 19 [facility] [place] #### [address] [address] [facility] Clinical Event Note-Need for Hospital [...] of the lumbar region. Provider/Team Contact Info-Pager [phone] Electronic Signatures: Sharmin Guaman (SHOP AND ALTERATION TAILOR-FOAM CASTER) (Signed 02-Oct-2021 15:19) Authored: Clinical Event Note Last Updated: 02-Oct-2021 15:19 by Sharmin Guaman (SHOP AND ALTERATION TAILOR-FOAM CASTER) Normal [facility] Clinical Event Note-Need for wheel Chairon [...] home, can self propel or has a healthcare sales representative to provide assistance. Provider/Team Contact Info-Pager [phone] Electronic Signatures: Sharmin Guaman (SHOP AND ALTERATION TAILOR-FOAM CASTER) (Signed 02-Oct-2021 15:27) Authored: Clinical Event Note Last Updated: 02-Oct-2021 15:27 by Sharmin Guaman (SHOP AND ALTERATION TAILOR-FOAM CASTER) Normal [facility] Daily Progress Note-Neurosur geryon 10-02-2021 Daily Progress Note-Neurosurgery Service: Neurosurgery Subjective Data: MORALES LEE is a 46 year old Female who is Hospital Day # 18 and POD #11 for posterior L4-L5 decompression;posterior L4-L5 arthrodesis. Objective Data: Objective Information: T PRBPSpO2 [id number]/8397% Date/Time10/02 1: 1: 1: 1: 1:28 Range(36.2C [...] 2021 10:00 pm000 Oct 01, 2021 2:00 [id number] The Intake and Output Totals for the [...] the note. I personally evaluated the patient [id number] Electronic Signatures: Kenneth Philippe (Resident)) (Signed 02-Oct-2021 06:52) Authored: Service, Subjective Data, Objective Data, Assessment and Plan, Note Completion Lex Frederick) (Signed 02-Oct-2021 15:16) Authored: Note Completion Co-Signer: Service, Subjective Data, Objective Data, Assessment and Plan, Note Completion Last Updated: 02-Oct-2021 15:16 by Lex Frederick) Normal [facility] Clinical Event Note-Discharg e discussionon 10-01-2021 [...] duration of trip. Electronic Signatures: Ambrocio Izaguirre (SHOP AND ALTERATION TAILOR-FOAM CASTER) (Signed 01-Oct-2021 17:11) Authored: Clinical Event Note Last Updated: 01-Oct-2021 17:11 by Ambrocio Izaguirre (SHOP AND ALTERATION TAILOR-FOAM CASTER) Normal [facility] Clinical Event Note-Need for hospital bedon [...] when lying flat. Electronic Signatures: Ambrocio Izaguirre (SHOP AND ALTERATION TAILOR-FOAM CASTER) (Signed 01-Oct-2021 14:48) Authored: Clinical Event Note Last Updated: 01-Oct-2021 14:48 by Ambrocio Izaguirre (SHOP AND ALTERATION TAILOR-FOAM CASTER) Normal [facility] Daily Progress Note-Neurosur leonidasyon 10-01-2021 Daily Progress Note-Neurosurgery Service: Neurosurgery Subjective Data: MORALES LEE is a 46 year old Female who is Hospital Day # 17 and POD #10 for posterior L4-L5 decompression;posterior L4-L5 arthrodesis. Objective Data: Objective Information: T PRBPSpO2 [id number]/7194% Date/Time10/01 0: 0: 0: 0: 0:38 Range(35.6C - 36.8C ) (64 - 96 ) (16 - 19 ) (94 - 138 )/ (59 - 83 ) (92% - 94% ) Pain reported at 09/30 9:00: 2 = Mild ---- Intake and Output ----- Mn/Dy/Year TimeIntakeOutputNet Sep 29, 2021 10:00 [id number] Sep 29, 2021 2:00 [id number] Sep 29, 2021 6:00 am000 The Intake [...] Updated: 01-Oct-2021 10:29 by Lex Frederick) Normal [facility] Daily Progress Note-Neurosurgery This report has been cancelled. Normal [facility] Daily Progress Note-Neurosur leonidasyon 09-30-2021 Daily Progress Note-Neurosurgery Service: Neurosurgery Subjective Data: MORALES LEE is a 46 year old Female who is Hospital Day # 15 and POD #8 for posterior L4-L5 decompression;posterior L4-L5 arthrodesis. Objective Data: Objective Information: T PRBPSpO2 [id number]/7393% Date/Time09/29 16: 16: 16: 16: 16:00 Range(36C - 36.7C ) (67 - 86 ) (17 - 20 ) (94 - 153 )/ (15 - 113 ) (93% - 98% ) Pain reported at 09/29 9:56: 5 = Moderate ---- Intake and Output ----- Mn/Dy/Year [facility] Sep 29, 2021 2:00 [id number] Sep 29, 2021 6:00 am000 Sep 28, 2021 10:00 [id number] The Intake and Output Totals for the [...] the note. I personally evaluated the patient [id number] Electronic Signatures: Lex Frederick) (Signed 30-Sep-2021 11:18) Authored: Note Completion Co-Signer: Service, Subjective Data, Objective Data, Assessment and Plan, Note Completion Jaya Mosquera (Resident)) (Signed 30-Sep-2021 03:18) Authored: Service, Subjective Data, Objective Data, Assessment and Plan, Note Completion Last Updated: 30-Sep-2021 11:18 by Lex Frederick) [facility] Ojxa-qn-metrguzxz - co -tx /c OT to address multidiscipon 09-30-2021 Rehab Mcfg-ty-feowxfmpm - co-tx /c OT to address multidiscip Rehab: Info: Disciplinephysical speech therapy assistant Mode of Treatmentphysical therapy; co-treatment; co-tx /c OT to address multidisciplinary functional needs and maximize pt's safety. Time IN12:15 Time OUT12:55 Total Treatment [id number] Patient in ... at end of sessionbed, 3 railings up; alarm off; not on at start of visit Communicated with ... at end of sessionbedside nurse Patient Effortgood Symptoms Noted During/After Treatmentfatigue Treatment Considerations/CommentsExte nsive discussion /c amongst ANGIO TECHNOLOGIST, OT, and pt regarding her current physical [...] rolling right; rolling left; scooting/bridging Roll Left [place] (Bed Mobility)moderate assist (50% patient effort); 1 person assist; nonverbal cues (demo/gesture); verbal cues Roll Right [place] (Bed Mobility)moderate assist (50% patient effort); 1 person assist; nonverbal cues (demo/gesture); verbal cues Scoot/Bridge [place] (Bed Mobility)maximum assist (25% patient effort); 2 person assist; nonverbal cues (demo/gesture); verbal cues Lyxgdh-gl-Mrs [place] (Bed Mobility)maximum assist (25% patient effort); 2 person assist; nonverbal cues (demo/gesture); verbal cues Lrr-af-Bpfkhy [place] (Bed Mobility)maximum assist (25% patient effort); 2 person assist; nonverbal cues (demo/gesture); verbal cues Assistive Device (Bed Mobility)bed rails; draw sheet Comment, Bed MobilityPt showing improvement in her ability to roll, performing 50% of AROM to achieve full rolling position. Transfer Assessment/Interventionssit to stand transfer; stand to sit transfer Comment, TransfersToday's session, OT and I utilized Cojoin Stand device to assist pt into full [...] Pt repositioned back to sitting EOB. Sit-Stand [place] (Transfers)dependent (less than 25% patient effort) Sit-Stand Assistive Device (Transfers)mechanical lift/aid Stand-Sit [place] (Transfers)dependent (less than 25% patient effort) Stand-Sit [...] Score8 Short Term Goals: Bed Mobility: Date [id number] Bed Mobility: [place] Level Goalminimum assist (75% patients effort) Bed Mobility: Physical Assist Level Goal1-person assist, verbal cues Bed Mobility: Time Frame for Goal2 wks Transfer: Established [id number] Transfer: Transfer Type Wcayftt-ov-ogvlz/chair-to-b ed; yoh-zy-wlwes/uybzu-du-rsh Transfer: [place] Level Goalmoderate assist (50% patients effort) Transfer: Physical Assist Level Goal1-person assist; verbal cues Transfer: Assistive Device Goalrolling walker Transfer: Time Frame for Goal2 wks Gait: Established [id number] Gait: [place] Level Goalmoderate assist (50% patients (more content not included)... Normal [facility] Note-rehabilitation therapy technician apy - co-tx with PT to maximizeon 09-30-2021 Rehab Note-occupational therapy - co-tx with PT to maximize Rehab: Info: Disciplineoccupational therapist Mode of Treatmentoccupational therapy; co-tx with PT to maximize pt's mobility and safety. Time IN12:15 Time OUT12:55 Total Treatment [id number] Patient in ... at end of sessionbed, [...] ling right; rolling left; scooting/bridging Roll Left [place] (Bed Mobility)moderate assist (50% patient effort); 1 person assist; nonverbal cues (demo/gesture); verbal cues Roll Right [place] (Bed Mobility)moderate assist (50% patient effort); 1 person assist; nonverbal cues (demo/gesture); verbal cues Scoot/Bridge [place] (Bed Mobility)maximum assist (25% patient effort); 2 [...] lower body dressing; upper body dressing; bathing [place] Level (Bathing)set up; verbal cues; moderate assist (50% patient effort); 1 person assist Comment (Bathing)anticipated due to impaired balance, strength, and pain. [place] Level (Upper Body Dressing)set up; verbal cues; moderate assist (50% patient effort) Comment (Upper Body Dressing)anticipated due to impaired balance, strength, and pain. [place] Level (Lower Body Dressing)don; socks; dependent (less than 25% patient effort) Position (Lower Body Dressing)supine [place] Level (Grooming)modified independence Comment (Grooming)Pt observed applying Orajel to gums, able to manage packaging, cap un/screwing, and application. [place] Level (Feeding)modified independence Comment (Feeding)Pt able to retrieve OJ cup from tray table at R side, bring to mouth, and drink appropriately. [place] Level (Toileting)dependent (less than 25% patient effort); [place] Comment (Toileting)Pt required Total A for toilet [...] Score15 Short Term Goals: Bed Mobility: Date [id number]-0159 Bed Mobility: [place] Level Goalcontact guard Bed Mobility: Physical Assist Level Goalset-up, verbal cues Bed Mobility: Time Frame for Goal2 wks Transfer: Established [id number] Transfer: Transfer Type Gxvjilo-uj-ghcjo/chair-to-b ed; vze-gy-tyrix/lpbjx-gy-phh; toilet Transfer: [place] Level Goalminimum assist (75% patients effort) Transfer: Physical Assist Level Goalset-up; verbal cues; 1-person assist Transfer: Assistive Device GoalLRD Transfer: Time Frame for Goal2 wks Balance: Established [id number] Balance: Goal DetailsPt will perform ADL while reaching outside MADDIE and returning self to midline >8 minutes with set-up assist, SBA, and minimal verbal cues for safety. Enrique (more content not included)... Normal [facility] Daily Progress Note-Nuha stearns 09-29-2021 Daily Progress Note-Neurosurgery Service: Neurosurgery Subjective Data: MORALES LEE is a 46 year old Female who is Hospital Day # 14 and POD #7 for posterior L4-L5 decompression;posterior L4-L5 arthrodesis. Objective Data: Objective Information: T PRBPSpO2 [id number]/6993% Date/Time09/28 4: 8: 8: 8: 8:00 Range(36C [...] 2021 6:00 am000 Sep 27, 2021 10:00 [id number] Sep 27, 2021 2:00 [id number] The Intake and Output Totals for the last 24 hours are: IntakeOutputNet [id number] Physical Exam by System: Neurological: A&Ox3 RUE [...] the note. I personally evaluated the patient [id number] Electronic Signatures: Lex Frederick) (Signed 29-Sep-2021 09:23) Authored: Note Completion Co-Signer: Service, Subjective Data, Objective Data, Assessment and Plan, Note Completion Jaya Mosquera (Resident)) (Signed 29-Sep-2021 03:01) Authored: Service, Subjective Data, Objective Data, Assessment and Plan, Note Completion Last Updated: 29-Sep-2021 09:23 by Lex Frederick) Normal [facility] Rehab Bbpx-lg-vbjpxxcid - co -tx /c OT to address multidiscipon 09-29-2021 Rehab Zfmu-en-bokedsuna - co-tx /c OT to address multidiscip Rehab: Info: Disciplinephysical speech therapy assistant Mode of Treatmentphysical therapy; co-treatment; co-tx /c OT to address multidisciplinary functional needs and maximize pt's safety. Time IN14:30 Time OUT15:40 Total Treatment [id number] Patient in ... at end of sessionbed, [...] to sit; sit to supine Roll Left [place] (Bed Mobility)maximum assist (25% patient effort); 2 person assist; verbal cues; nonverbal cues (demo/gesture) Roll Right [place] (Bed Mobility)maximum assist (25% patient effort); 2 person assist; verbal cues; nonverbal cues (demo/gesture) Scoot/Bridge [place] (Bed Mobility)maximum assist (25% patient effort); 2 person assist; nonverbal cues (demo/gesture); verbal cues Qlyyds-bd-Yfo [place] (Bed Mobility)maximum assist (25% patient effort); 2 person assist; nonverbal cues (demo/gesture); verbal cues Mct-cl-Oudefl [place] (Bed Mobility)verbal cues; nonverbal cues (demo/gesture); maximum [...] Pt repositioned back to sitting EOB. Sit-Stand [place] (Transfers)dependent (less than 25% patient effort) Sit-Stand Assistive Device (Transfers)mechanical lift/aid Stand-Sit [place] (Transfers)dependent (less than 25% patient effort) Stand-Sit [...] Score8 Short Term Goals: Bed Mobility: Date Efsttzqahqe80-Tfm-2021 Bed Mobility: [place] Level Goalminimum assist (75% patients effort) Bed Mobility: Physical Assist Level Goal1-person assist, verbal cues Bed Mobility: Time Frame for Goal2 wks Transfer: Established Transfer: Transfer Type Ifcdmrx-xh-lhtql/chair-to-b ed; soo-ew-jllby/bjnff-ap-qpm Transfer: [place] Level Goalmoderate assist (50% patients effort) Transfer: Physical Assist Level Goal1-person assist; verbal cues Transfer: Assistive Device Goalrolling walker Transfer: Time Frame for Goal2 wks Gait: Established Gait: [place] Level Goalmoderate assist (50% patients effort) Gait: [...] fair Outcome (more content not included)... Normal [facility] Rehab Note-rehabilitation therapy technician apy - co-tx with PT to maximizeon 09-29-2021 Rehab Note-occupational therapy - co-tx with PT to maximize Rehab: Info: Disciplineoccupational therapist Mode of Treatmentoccupational therapy; co-tx with PT to maximize pt's mobility and safety. Time IN14:30 Time OUT15:40 Total Treatment [id number] Patient in ... at end of sessionbed, [...] to sit; sit to supine Roll Left [place] (Bed Mobility)maximum assist (25% patient effort); 2 person assist; verbal cues; nonverbal cues (demo/gesture); multiple rolls to adjust harness Roll Right [place] (Bed Mobility)maximum assist (25% patient effort); 2 person assist; verbal cues; nonverbal cues (demo/gesture); multiple rolls to adjust harness Scoot/Bridge [place] (Bed Mobility)maximum assist (25% patient effort); 2 person assist; nonverbal cues (demo/gesture); verbal cues; boost HOB Sndcng-di-Lzo [place] (Bed Mobility)maximum assist (25% patient effort); 2 person assist; nonverbal cues (demo/gesture); verbal cues Skm-lv-Pehoyz [place] (Bed Mobility)verbal cues; nonverbal cues (demo/gesture); maximum assist (25% patient effort); 2 person assist Assistive Device (Bed Mobility)draw sheet; bed rails Transfer Assessment/Interventionssit to stand transfer; stand to sit transfer Sit-Stand [place] (Transfers)dependent (less than 25% patient effort) Sit-Stand Assistive Device (Transfers)mechanical lift/aid; Faye Plus Stand-Sit [place] (Transfers)dependent (less than 25% patient effort) Stand-Sit Assistive Device (Transfers)mechanical lift/aid; Faye Plus Safety Issues Impacting Function (Mobility)awareness of need for assistance; insight into deficits/self awareness Impairments Impacting Function (Mobility)endurance/activit y tolerance; strength; balance; coordination; postural/trunk control ADL: BADL Assessment/Interventiontoil eting; feeding; grooming; lower body dressing; upper body dressing; bathing [place] Level (Bathing)set up; verbal cues; moderate assist (50% patient effort); 1 person assist Comment (Bathing)anticipated due to impaired balance, strength, and pain. [place] Level (Upper Body Dressing)set up; verbal cues; moderate assist (50% patient effort) Comment (Upper Body Dressing)anticipated due to impaired balance, strength, and pain. [place] Level (Lower Body Dressing)don; socks; dependent (less than 25% patient effort) Position (Lower Body Dressing)supine [place] Level (Grooming)set up; contact guard Comment (Grooming)anticipated due to impaired balance, strength, and pain. [place] Level (Feeding)set up; modified independence Comment (Feeding)anticipated [place] Level (Toileting)dependent (less than 25% patient effort); purewick Impairments, BADL Safety/Performancebalance; cognition; endurance/activity tolerance; strength; trunk/postural control Cognitive Impairments, BADL Safety/Performanceawareness , need for assistance; insight into deficits/self awareness; judgment; problem solving/reasoning Motor: Sitting, Static (Balance)good balance SBA Sitting, Dynamic (Balance)fair balance CGA Tgv-xw-Iwhjo (Balance)poor balance Total A via Faye Plus lift Standing, Static (Balance)poor balance Max A x1 - via Faye Plus Standing, Dynamic (Balance)unable to balance Balance ActivitiesPt sat EOB ~20 minutes throughout session primarily with SB (more content not included)... Normal [facility] Clinical Event Note-Medical Assessmenton 09-28-2021 Clinical [...] oil enema alternating with tap water enema [id number] - Bisacodyl suppository QHS Daily - Monitor [...] wound check 10/07/21 at 10:15 am, [facility] 5th floor - F/U with [...] note 45 minutes; Electronic Signatures: Concetta Shi ([employer]OP AND ALTERATION TAILOR-FOAM CASTER) (Signed 28-Sep-2021 14:31) Authored: Clinical Event Note Last Updated: 28-Sep-2021 14:31 by Concetta Shi (SHOP AND ALTERATION TAILOR-FOAM CASTER) [facility] Daily Progress Note-Gastroen terologyon 09-28-2021 Daily Progress Note-Gastroenterolog y Service: Gastroenterology Subjective Data: MORALES LEE is a 46 year old Female who is Hospital Day # 14 and POD #7 for posterior L4-L5 decompression;posterior L4-L5 arthrodesis. No events overnight. Had one bowel movement this am. Otherwise no complaints. Objective Data: Objective Information: T PRBPSpO2 [id number]/6993% Date/Time09/28 4: 8: 8: 8: 8:00 Range(36C [...] 2021 6:00 am000 Sep 27, 2021 10:00 [id number] Sep 27, 2021 2:00 [id number] The Intake and Output Totals for the last 24 hours are: IntakeOutputNet [id number] Physical Exam by System: Constitutional: Constitutional: A&Ox3, [...] recommend tr (more content not included)... Normal [facility] Daily Progress Note-Nuha stearns 09-28-2021 Daily Progress Note-Neurosurgery Service: Neurosurgery Subjective Data: MORALES LEE is a 46 year old Female who is Hospital Day # 14 and POD #7 for posterior L4-L5 decompression;posterior L4-L5 arthrodesis. Objective Data: Objective Information: T PRBPSpO2 [id number]/4893% Date/Time09/28 4: 4: 4: 4:001/24 4:00 Range(36C - 36.6C ) (72 - 87 ) (15 - 22 ) (92 - 153 )/ (48 - 113 ) (92% - 99% ) As of 27-Sep-2021 22:00:00, patient is on 2 L/min of oxygen via nasal cannula. Pain reported at 09/27 22:00: 0 = None ---- Intake and Output ----- Mn/Dy/Year TimeIntakeOutputNet Sep 26, 2021 10:00 [id number] Sep 26, 2021 2:00 [id number] The Intake and Output Totals for the last 24 hours are: IntakeOutputNet [id number] Physical Exam by System: Neurological: A&Ox3 RUE [...] the note. I personally evaluated the patient [id number] Electronic Signatures: Fidel Maciel (Resident)) (Signed 28-Sep-2021 05:47) Authored: Service, Subjective Data, Objective Data, Assessment and Plan, Note Completion Lex Frederick) (Signed 28-Sep-2021 07:32) Authored: Note Completion Co-Signer: Service, Subjective Data, Objective Data, Assessment and Plan, Note Completion Last Updated: 28-Sep-2021 07:32 by Lex Frederick) Normal [facility] RENAL FUNCTION PANELon 09-28 Albumin [Mass/Vol] 3.1 g/dL Low 3.4 - 5.0 [facility] Comment on above: Performed By: #### R ENAL ####[id number] [place] [address] Anion gap [Moles/Vol] 17 mmol/L Normal 10 - 20 [facility] Comment on above: Performed By: #### R ENAL ####[id number] [place] [address] Calcium [Mass/Vol] 8.4 mg/dL Low 8.6 - 10.6 [facility] Comment on above: Performed By: #### R ENAL ####[id number] [place] [address] Chloride [Moles/Vol] 102 mmol/L Normal 98 - 107 [facility] Comment on above: Performed By: #### R ENAL ####[id number] [place] [address] Creatinine [Mass/Vol] 0.47 mg/dL Low 0.50 - 1.05 [facility] Comment on above: Performed By: #### R ENAL ####[id number] [place] [address] eGFR FEMALE >90 Normal >90 [facility] Comment on above: Result Comment: CALC ULATIONS OF ESTIMATED GFR ARE PERFORMED USING THE 2020 CKD-EPI STUDY REFIT EQUATION WITHOUT THE RACE VARIABLE FOR THE IDMS-TRACEABLE CREATININE METHODS. https://jasn.asnjournals.org/content/early/ASN.3861178 988 Performed By: #### R ENAL ####[id number] [place] [address] Glucose [Mass/Vol] 74 mg/dL Normal 74 - 99 [facility] Comment on above: Performed By: #### R ENAL ####[id number] [place] [address] HCO3 (Bld) [Moles/Vol] 27 mmol/L Normal 21 - 32 [facility] Comment on above: Performed By: #### R ENAL ####[id number] [place] [address] Phosphate [Mass/Vol] 3.4 mg/dL Normal 2.5 - 4.9 [facility] Comment on above: Result Comment: The performance characteristics of phosphorus testing in heparinized plasma have been validated by the individual laboratory site where testing is performed. Testing on heparinized plasma is not approved by the FDA; however, such approval is not necessary. Performed By: #### R ENAL ####[id number] [place] [address] Potassium [Moles/Vol] 3.7 mmol/L Normal 3.5 - 5.3 [facility] Comment on above: Performed By: #### R ENAL ####[id number] [place] [address] Sodium [Moles/Vol] 142 mmol/L Normal 136 - 145 [facility] Comment on above: Performed By: #### R ENAL ####[id number] [place] [address] Urea nitrogen [Mass/Vol] 6 mg/dL Normal 6 - 23 [facility] Comment on above: Performed By: #### R ENAL ####[id number] [place] [address] Radiologyon 09-28-2021 XR Abdomen AP Normal [facility]astro[facility]-[place] [facility] I Work Phone: Rehab Note-attemptedon 09-28 Rehab Note-attempted Rehab: Info: Disciplinephysical speech therapy assistant Mode of Treatmentattempted Time IN15:30 Reason Treatment Not Performedpatient/family declined treatment, not feeling well Treatment Considerations/CommentsPt declined therapy at this time 2* increased fatigue, nausea. Pt stated NO! NO! NO! upon therapists arrival, even /c increased encouragement. Will reattempt as schedule allows. Short Term Goals: Bed Mobility: Date Pmxmmzpnhyz10-Wfd-9233 Bed Mobility: [place] Level Goalminimum assist (75% patients effort) Bed Mobility: Physical Assist Level Goal1-person assist, verbal cues Bed Mobility: Time Frame for Goal2 wks Transfer: Established Transfer: Transfer Type Xtnjhzs-gi-qghyx/chair-to-b ed; xqe-sg-vvgyx/oqvyn-nl-oqr Transfer: [place] Level Goalmoderate assist (50% patients effort) Transfer: Physical Assist Level Goal1-person assist; verbal cues Transfer: Assistive Device Goalrolling walker Transfer: Time Frame for Goal2 wks Gait: Established Gait: [place] Level Goalmoderate assist (50% patients effort) Gait: Physical Assist Level1-person assist; verbal cues Gait: Assistive Device Goalrolling walker Gait: Distance Goal15 feet Gait: Time Frame for Goal2 wks Balance: Established [id number] Balance: Goal DetailsSitting EOB 20 minutes with 0-1 UE support, SBA for static sitting, CGA for dynamic. Standing 1 minute with FWW and CGA Electronic Signatures: Yosi Campbell) (Signed 28-Sep-2021 15:32) Entered: Short Term Goals, Info Authored: Info, Short Term Goals Boone Broussard (PT) (Signed 01-Oct-2021 09:01) Co-Signer: Short Term Goals, Info Last Updated: 01-Oct-2021 09:01 by Boone Broussard (PT) Normal [facility] Rehab Note-attempted Rehab: Info: Mode of [...] 28-Sep-2021 15:28 by Silvana Marshall (OT) Normal [facility] Renal Function Panelon 09-28 Albumin BCP [...] - 99 [facility] troen terology-[place] [facility] Work Phone: Phosphate [Mass/Vol] 3.4 mg/dL 2.5 - 4.9 MG-G astroen terology-[place] [facility] Work Phone: Comment on above: The performance arsalan acteristics of phosphorus testing in heparinized plasma have been validated by the individual laboratory site where testing is performed. Testing on heparinized plasma is not approved by the FDA; however, such approval is not necessary. Potassium [Moles/Vol] 3.7 mmol/L 3.5 - 5.3 [facility]-Gastroen terology-[place] [facility] Work Phone: Sodium [Moles/Vol] 142 mmol/L 136 - 145 [facility] troen terology-[place] [facility] Work Phone: Urea nitrogen [Mass/Vol] 6 mg/dL 6 - 23 [facility]astroen terology-[place] [facility] Work Phone: Renal Function Panel >90 >90 [facility] astroen terology-[place] [facility] Work Phone: Comment on above: CALCULATIONS OF IVY MATED GFR ARE PERFORMED USING THE 2020 CKD-EPI STUDY REFIT EQUATION WITHOUT THE RACE VARIABLE FOR THE IDMS-TRACEABLE CREATININE METHODS.https://jasn.asnjournals.org/content//ASN .1460788163 ABDOMEN AP VIEWon 022 ABDOMEN AP VIEW Patient Name: MORALES LEE STUDY: ABDOMEN AP VIEW; 09/28/2021 1:22 pm INDICATION: Abd. dist. . COMPARISON: 09/27/2021 abdominal radiograph. ACCESSION NUMBER(S): [id number] ORDERING CLINICIAN: CONCETTA SHI FINDINGS: Two AP [...] as stated. This study was interpreted at [facility], [place], [place]. 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 Has been on scheduled bowel regimen with [...] penicillin: Unknown Objective: Objective Information: T PRBPSpO2 [id number]/69795% Date/Time09/27 4: 4: 4: 4:00 Range (76 [...] C6-7 ACDFF, (more content not included)... Normal [facility] Daily Progress Note-Neurosjudy stearns 09-27-2021 Daily Progress Note-Neurosurgery Service: Neurosurgery Subjective Data: MORALES LEE is a 46 year old Female who is Hospital Day # 13 and POD #6 for posterior L4-L5 decompression;posterior L4-L5 arthrodesis. Objective Data: Objective Information: T PRBPSpO2 [id number]/54030% Date/Time09/26 11:0809/27 4: 4: 4: 4:00 Range(37C [...] 2021 6:00 am000 Sep 26, 2021 10:00 [id number] Sep 26, 2021 2:00 [id number] The Intake and Output Totals for the last 24 hours are: IntakeOutputNet [id number] Physical Exam by System: Neurological: A&Ox3 RUE [...] the note. I personally evaluated the patient [id number] Electronic Signatures: Chaparro Umana (Resident)) (Signed 27-Sep-2021 06:11) Authored: Service, Subjective Data, Objective Data, Assessment and Plan, Note Completion Natalia Palacios) (Signed 08-Oct-2021 14:31) Authored: Note Completion Co-Signer: Service, Subjective Data, Objective Data, Assessment and Plan, Note Completion Last Updated: 08-Oct-2021 14:31 by Natalia Palacios) Normal [facility] MAGNESIUMon 09-27-2021 Magnesium [Mass/Vol] 1.80 mg/dL Normal 1.60 - 2.40 [facility] Comment on above: Performed By: #### C #### [facility] [id number] [place] [address] Magnesium, Serumon Magnesium [Mass/Vol] 1.80 mg/dL See Below MG-G astroen terology-[place] [facility] Work Phone: Comment on above: Reference Range: 1.6 0 - 2.40 RENAL FUNCTION PANELon 09-27 Albumin [Mass/Vol] 3.3 g/dL Low 3.4 - 5.0 [facility] Comment on above: Performed By: #### R ENAL #### [facility] [address] [place] [address] Anion gap [Moles/Vol] 17 mmol/L Normal 10 - 20 [facility] Comment on above: Performed By: #### R ENAL #### [facility] [address] [place] [address] Calcium [Mass/Vol] 8.5 mg/dL Low 8.6 - 10.6 [facility] Comment on above: Performed By: #### R ENAL #### [facility] [address] [place] [address] Chloride [Moles/Vol] 98 mmol/L Normal 98 - 107 [facility] Comment on above: Performed By: #### R ENAL #### [facility] [address] [place] [address] Creatinine [Mass/Vol] 0.44 mg/dL Low 0.50 - 1.05 [facility] Comment on above: Performed By: #### R ENAL #### [facility] [address] [place] [address] eGFR FEMALE >90 Normal >90 [facility] Comment on above: Result Comment: CALC ULATIONS OF ESTIMATED GFR ARE PERFORMED USING THE 2020 CKD-EPI STUDY REFIT EQUATION WITHOUT THE RACE VARIABLE FOR THE IDMS-TRACEABLE CREATININE METHODS. https://jasn.asnjournals.org/content//ASN.9757212 988 Performed By: #### R ENAL #### [facility] [address] [place] [address] Glucose [Mass/Vol] 91 mg/dL Normal 74 - 99 [facility] Comment on above: Performed By: #### R ENAL #### [facility] [address] [place] [address] HCO3 (Bld) [Moles/Vol] 26 mmol/L Normal 21 - 32 [facility] Comment on above: Performed By: #### R ENAL #### [facility] [address] [place] [address] Phosphate [Mass/Vol] 4.0 mg/dL Normal 2.5 - 4.9 [facility] Comment on above: Result Comment: The performance characteristics of phosphorus testing in heparinized plasma have been validated by the individual laboratory site where testing is performed. Testing on heparinized plasma is not approved by the FDA; however, such approval is not necessary. Performed By: #### R ENAL #### [facility] [address] [place] [address] Potassium [Moles/Vol] 4.1 mmol/L Normal 3.5 - 5.3 [facility] Comment on above: Performed By: #### R ENAL #### [facility] [address] [place] [address] Sodium [Moles/Vol] 137 mmol/L Normal 136 - 145 [facility] Comment on above: Performed By: #### R ENAL #### [facility] [address] [place] [address] Urea nitrogen [Mass/Vol] 6 mg/dL Normal 6 - 23 [facility] Comment on above: Performed By: #### R ENAL #### [facility] [address] [place] [address] Radiologyon 09-27-2021 XR Abdomen AP Normal MG-Gastroen [...] >90 >90 MG-G astroen terology-[place] [facility] Work Phone: Comment on above: CALCULATIONS OF IVY MATED GFR ARE PERFORMED USING THE 2020 CKD-EPI STUDY REFIT EQUATION WITHOUT THE RACE VARIABLE FOR THE IDMS-TRACEABLE CREATININE METHODS.https://jasn.asnjournals.org/content/early//ASN .0586868634 TH ABDOMEN AP VIEWon 022 ABDOMEN AP VIEW Patient Name: MORALES LEE STUDY: ABDOMEN AP VIEW; 09/27/2021 2:33 am INDICATION: vomiting, constipation . COMPARISON: None. ACCESSION NUMBER(S): [id number] ORDERING CLINICIAN: FIDEL MACIEL FINDINGS: 2 AP [...] as stated. This study was interpreted at [facility], [place], [place]. Electronically signed by: DWIGHT MOY MD [facility] Daily Progress Note-Neurosjudy stearns 09-26-2021 Daily Progress Note-Neurosurgery Service: Neurosurgery Subjective Data: MORALES LEE is a 46 year old Female who is Hospital Day # 12 and POD #5 for posterior L4-L5 decompression;posterior L4-L5 arthrodesis. Objective Data: Objective Information: T PRBPSpO2 [id number]/8299% Date/Time09/25 17: 12:001 17: 17:08 Range (68 - 98 ) (21 - 23 ) (118 - 136 )/ (69 - 82 ) (92% - 99% ) Pain reported at 09/26 3:00: sleeping ---- Intake and Output ----- Mn/Dy/Year TimeIntakeOutputNet Sep 24, 2021 10:00 [id number] Sep 24, 2021 2:00 [id number] Sep 24, 2021 6:00 [id number] The Intake and Output Totals for the last 24 hours are: IntakeOutputNet [id number] Physical Exam by System: Neurological: A&Ox3 RUE [...] L4 stenosis 09/21 s/p L4/5 lami, accessory wkame placement Plan: tele Drain/Prevena AFO Chronic pain [...] the note. I personally evaluated the patient [id number] Electronic Signatures: Jaya Mosquera (Resident)) (Signed 26-Sep-2021 07:08) Authored: Service, Subjective Data, Objective Data, Assessment and Plan, Note Completion Natalia Palacios) (Signed 08-Oct-2021 14:10) Authored: Note Completion Co-Signer: Service, Subjective Data, Objective Data, Assessment and Plan, Note Completion Last Updated: 08-Oct-2021 14:10 by Natalia Palacios) Normal [facility] Clinical Event Note-POD 4 / Abdominal [...] wound check 10/07/21 at 10:15 am, [facility] 5th floor - F/U with [...] plan of care. Electronic Signatures: Concetta Shi (SHOP AND ALTERATION TAILOR-FOAM CASTER) (Signed 25-Sep-2021 13:30) Authored: Clinical Event Note Last Updated: 25-Sep-2021 13:30 by Concetta Shi (SHOP AND ALTERATION TAILOR-FOAM CASTER) Normal [facility] Daily Progress Note-Neurosjudy stearns 09-25-2021 Daily Progress Note-Neurosurgery Service: Neurosurgery Subjective Data: MORALES LEE is a 46 year old Female who is Hospital Day # 11 and POD #4 for posterior L4-L5 decompression;posterior L4-L5 arthrodesis. Objective Data: Objective Information: T PRBPSpO2 [id number]/6799% Date/Time09/24 16: 16: 16: 16:00 Range (68 - 78 ) (18 - 19 ) (102 - 117 )/ (57 - 73 ) (95% - 99% ) As of 24-Sep-2021 21:40:00, patient is on 2 L/min of oxygen via nasal cannula. Pain reported at 09/24 21:40: 8 = Severe ---- Intake and Output ----- Mn/Dy/Year TimeIntakeOutputNet Sep 23, 2021 10:00 [id number] Sep 23, 2021 6:00 [id number] The Intake and Output Totals for the last 24 hours are: IntakeOutputNet [id number] Physical Exam by System: Neurological: A&Ox3 RUE [...] the note. I personally evaluated the patient [id number] Electronic Signatures: Lex Frederick) (Signed 25-Sep-2021 11:57) Authored: Note Completion Co-Signer: Service, Subjective Data, Objective Data, Assessment and Plan, Note Completion Alfredo Hendrickson (Resident)) (Signed 25-Sep-2021 05:56) Authored: Service, Subjective Data, Objective Data, Assessment and Plan, Note Completion Last Updated: 25-Sep-2021 11:57 by Lex Frederick) Normal [facility] Rehab Dzit-mn-ukcvhbydm - co -tx /c OT to address multidiscipon 09-25-2021 Rehab Xqgm-jq-vgithpyzu - co-tx /c OT to address multidiscip Rehab: Info: Disciplinephysical speech therapy assistant Mode of Treatmentphysical therapy; co-treatment; co-tx /c OT to address multidisciplinary functional needs and maximize pt's safety. Time IN15:05 Time OUT15:59 Total Treatment [id number] Patient in ... at end of sessionbed, [...] scooting/bridging; rolling right; rolling left Roll Left [place] (Bed Mobility)maximum assist (25% patient effort); 2 person assist; verbal cues; nonverbal cues (demo/gesture) Roll Right [place] (Bed Mobility)maximum assist (25% patient effort); 2 person assist; verbal cues; nonverbal cues (demo/gesture) Scoot/Bridge [place] (Bed Mobility)maximum assist (25% patient effort); 2 person assist; nonverbal cues (demo/gesture); verbal cues Qidocu-ho-Mgs [place] (Bed Mobility)maximum assist (25% patient effort); 2 person assist; verbal cues; nonverbal cues (demo/gesture) Zqw-en-Mwqrfx [place] (Bed Mobility)maximum assist (25% patient effort); 2 [...] unable to get to full standing. Sit-Stand [place] (Transfers)maximum assist (25% patient effort); verbal cues; nonverbal cues (demo/gesture); 2-3 persona assist Sit-Stand Assistive Device (Transfers)walker, front-wheeled Stand-Sit [place] (Transfers)maximum assist (25% patient effort); nonverbal cues (demo/gesture); verbal cues; 2-3 persona assist Stand-Sit Assistive Device (Transfers)walker, front-wheeled Impairments Impacting Function (Mobility)strength; endurance/activity tolerance; coordination Sensory: Comment, Pre/Post Treatment PainPt notes pain in her buttocks and low back /c certain positions. No number given, but likely 10/ TherEx: Therapeutic ExercisePt was able to maintain [...] Score8 Short Term Goals: Bed Mobility: Date [id number] Bed Mobility: [place] Level Goalminimum assist (75% patients effort) Bed Mobility: Physical Assist Level Goal1-person assist, verbal cues Bed Mobility: Time Frame for Goal2 wks Transfer: Established Transfer: Transfer Type Cjfiwap-wb-qojtg/chair-to-b ed; etp-jq-wfjty/zqooa-ff-rak Transfer: [place] Level Goalmoderate assist (50% patients effort) Transfer: Physical Assist Level Goal1-person assist; verbal cues Transfer: Assistive Device Goalrolling walker Transfer: Time Frame for Goal2 wks Gait: Established Gait: [place] Level Goalmoderate assist (50% patients effort) Gait: Physical Assist Level1-person assist; verbal cues Gait: Assistive Device Goalrolling walker Gait: Distance Goal15 feet Gait: Time Frame for Goal2 wks Balance: Established [id number] Balance: Goal DetailsSitting EOB 20 minutes with 0-1 UE support, SBA for static sitting, CGA for dynamic. Standing 1 minute with FWW and CGA Outcome Summary: Progress: Physical Therapyprogress toward functional goals is gradual Electronic Signatures: Yosi Campbell (ANGIO TECHNOLOGIST) (Signed 25-Sep-2021 16:59) Entered: Outcome Summary, Short Term Goals, Sensory, TherEx, Outcomes Tools, Info, Mobility/Tone Authored: Short Term Goals, Outcome Summary, TherEx, Outcomes Tools, Info, Mobility/Tone, Sensory Boone Broussard (PT) (Signed 01-Oct-2021 09:01) Co-Signer: Outcome Summary, Short Term Goals, Sensory, TherEx (more content not included)... Normal [facility] Rehab Note-rehabilitation therapy technician apy - Partial co-tx with PT to mon 09-25-2021 Rehab Note-occupational therapy - Partial co-tx with PT to Rehab: Info: Disciplineoccupational therapist Mode of Treatmentoccupational therapy; Partial co-tx with PT to maximize pt's mobility and safety. Time IN15:03 Time OUT15:56 Total Treatment [id number] Patient in ... at end of sessionbed, [...] sit to supine; rolling right Roll Left [place] (Bed Mobility)Pt required assist to bend BLE at knees and to initiate turn at shoulders and hips, verbal cues for grasp on bed rail, technique, direction follow, and encouragement.; set up; verbal cues; maximum assist (25% patient effort); 2 person assist Roll Right [place] (Bed Mobility)Pt required assist to bend BLE at knees and to initiate turn at shoulders and hips, verbal cues for grasp on bed rail, technique, direction follow, and encouragement.; set up; verbal cues; maximum assist (25% patient effort); 2 person assist Scoot/Bridge [place] (Bed Mobility)boost HOB; set up; verbal cues; maximum assist (25% patient effort); 2 person assist Tejiro-hc-Cgj [place] (Bed Mobility)HOB elevated; set up; verbal cues; maximum assist (25% patient effort); 2 person assist Tts-ul-Xcenyo [place] (Bed Mobility)HOB elevated; set up; verbal cues; maximum assist (25% patient effort); 2 person assist Assistive Device (Bed Mobility)bed rails; draw sheet Transfer Assessment/Interventionssit to stand transfer Sit-Stand [place] (Transfers)set up; verbal cues; maximum assist (25% patient effort); x 2-3 assist Safety Issues Impacting Function (Mobility)ability to follow commands; awareness of need for assistance; insight into deficits/self awareness; judgment; problem solving Impairments Impacting Function (Mobility)balance; cognition; endurance/activity tolerance; pain; strength; postural/trunk control ADL: BADL Assessment/Interventiontoil eting; feeding; grooming; lower body dressing; upper body dressing; bathing [place] Level (Bathing)set up; verbal cues; moderate assist (50% patient effort); 1 person assist Comment (Bathing)anticipated due to impaired balance, strength, and pain. [place] Level (Upper Body Dressing)set up; verbal cues; moderate assist (50% patient effort) Comment (Upper Body Dressing)anticipated due to impaired balance, strength, and pain. [place] Level (Lower Body Dressing)don; socks; dependent (less than 25% patient effort) Position (Lower Body Dressing)supine [place] Level (Grooming)set up; contact guard Comment (Grooming)anticipated due to impaired balance, strength, and pain. [place] Level (Feeding)set up; modified independence Comment (Feeding)anticipated [place] Level (Toileting)dependent (less than 25% patient effort); purewick Impairments, BADL Safety/Performancebalance; cognition; endurance/activity tolerance; strength; trunk/postural control Cognitive Impairments, BADL Safety/Performanceawareness , need for assistance; insight into deficits/self awareness; judgment; problem solving/reasoning Motor: Sitting, Static (Balance)good balance SBA Sitting, Dynamic (Balance)fair balance CGA Esn-zj-Viyhy (Balance)poor balance Max A x 2-3 - attempted Standing, Static (Balance)unable to balance Standing, Dynamic (Balance)unable to balance Balance ActivitiesPt sat EOB ~30 minutes with SBA/CGA for safety. Pt demonstrated good sitting balance and trunk control. Pt attempted STS transfers 3x with (more content not included)... Normal [facility] Daily Progress Note-Nuha stearns 09-24-2021 Daily Progress Note-Neurosurgery Service: Neurosurgery Subjective Data: MORALES LEE is a 46 year old Female who is Hospital Day # 10 and POD #3 for posterior L4-L5 decompression;posterior L4-L5 arthrodesis. Objective Data: Objective Information: T PRBPSpO2 [id number]/5499% Date/Time09/23 20:4809/23 20:4809/23 20:4809/23 20:4809/23 20:48 Range(35.5C - 36.1C ) (66 - 75 ) (16 - 19 ) (90 - 118 )/ (54 - 75 ) (98% - 99% ) As of 23-Sep-2021 22:43:00, patient is on 2 L/min of oxygen via nasal cannula. ---- Intake and Output ----- Mn/Dy/Year TimeIntakeOutputNet Sep 22, 2021 10:00 [id number] Sep 22, 2021 2:00 [id number] Sep 22, 2021 6:00 [id number] The Intake and Output Totals for the last 24 hours are: IntakeOutputNet [id number] Physical Exam by System: Neurological: A&Ox3 RUE [...] the note. I personally evaluated the patient [id number] Comments/ Additional Findings Doing well. Kyphotic posture and Back Pain from instability and traumatic chance fracture significantly improved as compared to preop. She developed weakness involving ankle PF/DF following rastafarian of alignment from buckling of hypertrophic ligamentum [...] for ambulation and PT for now and intermediate card tender if the weakness fails to improve over [...] to the (more content not included)... Normal [facility] MAGNESIUMon 09-24-2021 Magnesium [Mass/Vol] 1.71 mg/dL Normal 1.60 - 2.40 [facility] Comment on above: Performed By: #### A FPA3 #### [id number] [place] [address] Magnesium, Serumon Magnesium [Mass/Vol] 1.71 mg/dL See Below MG-G tiffany carcamo-Rosendo moura 6 [facility] Work Phone: Comment on above: Reference Range: 1.6 0 - 2.40 RENAL FUNCTION PANELon 09-24 Albumin [Mass/Vol] 2.6 g/dL Low 3.4 - 5.0 [facility] Comment on above: Performed By: #### R ENAL ####[id number] [place] [address] Anion gap [Moles/Vol] 10 mmol/L Normal 10 - 20 [facility] Comment on above: Performed By: #### R ENAL ####[id number] [place] [address] Calcium [Mass/Vol] 7.7 mg/dL Low 8.6 - 10.6 [facility] Comment on above: Performed By: #### R ENAL ####[id number] [place] [address] Chloride [Moles/Vol] 108 mmol/L High 98 - 107 [facility] Comment on above: Performed By: #### R ENAL ####[id number] [place] [address] Creatinine [Mass/Vol] 0.39 mg/dL Low 0.50 - 1.05 [facility] Comment on above: Performed By: #### R ENAL ####[id number] [place] [address] eGFR FEMALE >90 Normal >90 [facility] Comment on above: Result Comment: CALC ULATIONS OF ESTIMATED GFR ARE PERFORMED USING THE 2020 CKD-EPI STUDY REFIT EQUATION WITHOUT THE RACE VARIABLE FOR THE IDMS-TRACEABLE CREATININE METHODS. https://jasn.asnjournals.org/content//ASN.2548399 988 Performed By: #### R ENAL ####[id number] [place] [address] Glucose [Mass/Vol] 92 mg/dL Normal 74 - 99 [facility] Comment on above: Performed By: #### R ENAL ####[id number] [place] [address] HCO3 (Bld) [Moles/Vol] 29 mmol/L Normal 21 - 32 [facility] Comment on above: Performed By: #### R ENAL ####[id number] [place] [address] Phosphate [Mass/Vol] 3.3 mg/dL Normal 2.5 - 4.9 [facility] Comment on above: Result Comment: The performance characteristics of phosphorus testing in heparinized plasma have been validated by the individual laboratory site where testing is performed. Testing on heparinized plasma is not approved by the FDA; however, such approval is not necessary. Performed By: #### R ENAL ####[id number] [place] [address] Potassium [Moles/Vol] 3.9 mmol/L Normal 3.5 - 5.3 [facility] Comment on above: Performed By: #### R ENAL ####[id number] [place] [address] Sodium [Moles/Vol] 143 mmol/L Normal 136 - 145 [facility] Comment on above: Performed By: #### R ENAL ####[id number] [place] [address] Urea nitrogen [Mass/Vol] 5 mg/dL Low 6 - 23 [facility] Comment on above: Performed By: #### R ENAL ####[id number] [place] [address] Rehab Note-attemptedon 09-24 Rehab Note-attempted Rehab: Info: Mode of Treatmentattempted Time IN15:00 Reason Treatment Not Performedpatient/family declined treatment; Pt declined participation in OT treatment stating she was on a very important call that she needed to take. Electronic Signatures: Silvana Marshall (OT) (Signed 24-Sep-2021 15:29) Authored: Info Last Updated: 24-Sep-2021 15:29 by Silvana Marshall (OT) Normal [facility] Rehab Note-physical therapyo n 09-24-2021 Rehab [...] 24-Sep-2021 15:07 by Boone Broussard (PT) Normal [facility] Renal Function Panelon 09-24 Albumin BCP [...] RACE VARIABLE FOR THE IDMS-TRACEABLE CREATININE METHODS.https://jasn.asnjournals.org/content//ASN .4210641358 CBCon 09-23-2021 Erythrocyte distribution width (RBC) [Ratio] 13.1 % Normal 11.5 - 14.5 [facility] Comment on above: Performed By: #### C BC ####[id number] [place] [address] Hematocrit (Bld) [Volume fraction] 30.5 % Low 36.0 - 46.0 [facility] Comment on above: Performed By: #### C BC ####[id number] [place] [address] Hemoglobin (Bld) [Mass/Vol] 9.9 g/dL Low 12.0 - 16.0 [facility] Comment on above: Performed By: #### C BC ####[id number] [place] [address] MCHC (RBC) [Mass/Vol] 32.5 g/dL Normal 32.0 - 36.0 [facility] Comment on above: Performed By: #### C BC ####[id number] [place] [address] MCV (RBC) [Entitic vol] 92 fL Normal 80 - 100 [facility] Comment on above: Performed By: #### C BC ####[id number] [place] [address] NUCLEATED RBC 0.0 /100 WBC Normal 0.0-0.0 [facility] Comment on above: Performed By: #### C BC ####[id number] [place] [address] Platelets (Bld) [#/Vol] 244 10*3/uL Normal 150 - 450 [facility] Comment on above: Performed By: #### C BC ####[id number] [place] [address] RBC 3.33 x10E12/L Low 4.00 - 5.20 [facility] Comment on above: Performed By: #### C BC ####[id number] [place] [address] WBC (Bld) [#/Vol] 8.6 10*3/uL Normal 4.4 - 11.3 [facility] Comment on above: Performed By: #### C BC ####[id number] [place] [address] CBC AND DIFFERENTIALon 09-23 % AUTOMATED IMMATURE GRAN 0.4 % Normal 0.0 - 0.9 [facility] Comment on above: Result Comment: Jaleesa ture Granulocyte Count (IG) includes promyelocytes, myelocytes and metamyelocytes but does not include bands. Percent differential counts (%) should be interpreted in the context of the absolute cell counts (cells/L). Performed By: #### C BC #### [facility] [address] [place] [address] Basophils (Bld) [#/Vol] 0.03 10*3/uL Normal 0.00 - 0.10 [facility] Comment on above: Performed By: #### C BC #### [facility] [address] [place] [address] Basophils/100 WBC (Bld) 0.4 % Normal 0.0 - 2.0 [facility] Comment on above: Performed By: #### C BC #### [facility] [address] [place] [address] Eosinophils (Bld) [#/Vol] 0.27 10*3/uL Normal 0.00 - 0.70 [facility] Comment on above: Performed By: #### C BC #### [facility] [address] [place] [address] Eosinophils/100 WBC (Bld) 3.6 % Normal 0.0 - 6.0 [facility] Comment on above: Performed By: #### C BC #### [facility] [address] [place] [address] Erythrocyte distribution width (RBC) [Ratio] 13.2 % Normal 11.5 - 14.5 [facility] Comment on above: Performed By: #### C BC #### [facility] [address] [place] [address] Hematocrit (Bld) [Volume fraction] 30.9 % Low 36.0 - 46.0 [facility] Comment on above: Performed By: #### C BC #### [facility] [address] [place] [address] Hemoglobin (Bld) [Mass/Vol] 10.4 g/dL Low 12.0 - 16.0 [facility] Comment on above: Performed By: #### C BC #### [facility] [address] [place] [address] Lymphocytes (Bld) [#/Vol] 2.41 10*3/uL Normal 1.20 - 4.80 [facility] Comment on above: Performed By: #### C BC #### [facility] [address] [place] [address] Lymphocytes/100 WBC (Bld) 31.9 % Normal 13.0 - 44.0 [facility] Comment on above: Performed By: #### C BC #### [facility] [address] [place] [address] MCHC (RBC) [Mass/Vol] 33.7 g/dL Normal 32.0 - 36.0 [facility] Comment on above: Performed By: #### C BC #### [facility] [address] [place] [address] MCV (RBC) [Entitic vol] 91 fL Normal 80 - 100 [facility] Comment on above: Performed By: #### C BC #### [facility] [address] [place] [address] Monocytes (Bld) [#/Vol] 0.49 10*3/uL Normal 0.10 - 1.00 [facility] Comment on above: Performed By: #### C BC #### [facility] [address] [place] [address] Monocytes/100 WBC (Bld) 6.5 % Normal 2.0 - 10.0 [facility] Comment on above: Performed By: #### C BC #### [facility] [address] [place] [address] Neutrophils (Bld) [#/Vol] 4.32 10*3/uL Normal 1.20 - 7.70 [facility] Comment on above: Performed By: #### C BC #### [facility] [address] [place] [address] Neutrophils/100 WBC (Bld) 57.2 % Normal 40.0 - 80.0 [facility] Comment on above: Performed By: #### C BC #### [facility] [address] [place] [address] NUCLEATED RBC 0.0 /100 WBC Normal 0.0-0.0 [facility] Comment on above: Performed By: #### C BC #### [facility] [address] [place] [address] Platelets (Bld) [#/Vol] 228 10*3/uL Normal 150 - 450 [facility] Comment on above: Performed By: #### C BC #### [facility] [address] [place] [address] RBC 3.39 x10E12/L Low 4.00 - 5.20 [facility] Comment on above: Performed By: #### C BC #### [facility] [address] [place] [address] WBC (Bld) [#/Vol] 7.6 10*3/uL Normal 4.4 - 11.3 [facility] Comment on above: Performed By: #### C BC #### [facility] [address] [place] [address] Complete Blood Count + Diffe vidya 09-23-2021 Basophils/100 WBC (Bld) 0.4 % 0.0 - 2.0 MG-Gastroen terology-Rosendo [place] 6 [facility] Work Phone: Erythrocyte distribution width (RBC) [Ratio] 13.2 % See Below MG-Gastroen terology-[place]endo [place] 6 [facility] Work Phone: Comment on above: Reference Range: 11. 5 - 14.5 Hematocrit (Bld) [Volume fraction] 30.9 % below low threshold See Below MG-Gastroen terology-[place]endo [place] 6 I Work Phone: Comment on above: Reference Range: 36. 0 - 46.0 Hemoglobin (Bld) [Mass/Vol] 10.4 g/dL below low threshold See Below MG-Gastroen terology-[place] 6 [facility] Work Phone: Comment on above: Reference [...] Differential 0.49 {x10E9/L} See Below MG-Gastroen terology-Rosendo [facility] 6 [facility] Work Phone: Comment on above: Reference Range: 0.1 0 - 1.00 Complete Blood Count + Differential 2.41 {x10E9/L} See Below MG-Gastroen terology-Rosendo [facility] 6 [facility] Work Phone: Comment on above: Reference Range: 1.2 0 - 4.80 Complete Blood Count + Differential 4.32 {x10E9/L} See Below MG-Gastroen terology-Rosendo [facility] 6 [facility] Work Phone: Comment on above: Reference Range: 1.2 0 - 7.70 Complete Blood Count + Differential 3.6 % 0.0 - 6.0 [facility] Work Phone: Complete Blood Count + Differential 0.4 % 0.0 - 0.9 [facility] [place] [facility] Work Phone: Comment on above: Immature Granulocyte Count (IG) includes promyelocytes, myelocytes and metamyelocytes but does not include bands. Percent differential counts (%) should be interpreted in the context of the absolute cell counts (cells/L). Complete Blood Count + Differential 0.0 {/100_WBC} 0.0-0.0 [facility] [place] [facility] 6 [facility] Work Phone: Laboratory - Hematology and Cell countson 09-23-2021 Erythrocyte distribution width (RBC) [Ratio] 13.1 % See Below MG-Gastroen terology-Rosendo [facility] 6 [facility] Work Phone: Comment on above: Reference Range: 11. 5 - 14.5 Hematocrit (Bld) [Volume fraction] 30.5 % below low threshold See Below MG-Gastroen terology-Rosendo [facility] 6 [facility] Work Phone: Comment on above: Reference [...] [Mass/Vol] 1.68 mg/dL Normal 1.60 - 2.40 [facility] Comment on above: Performed By: #### C #### [facility] [address] [place] [address] Magnesium, Serumon 2 Magnesium [Mass/Vol] 1.68 mg/dL [...] (Advanced Practice Nurse) done by Ambrocio Izaguirre ([facility]) Discharge - Partial Reconciliation: 23-Sep-2021 13:21 by: Ambrocio Izaguirre ([facility]) Discharge - Partial Reconciliation: 24-Sep-2021 10:12 by: Ambrocio Izaguirre ([facility]) Discharge - Partial Reconciliation: 30-Sep-2021 14:12 by: Concetta Shi ([facility]) Discharge - Partial Reconciliation: 30-Sep-2021 14:14 by: Concetta Shi ([facility]) Discharge - Reconciliation: 30-Sep-2021 14:24 by: Concetta Shi ([facility]) Discharge - Reset to Incomplete: 02-Oct-2021 15:36 by: Ambrocio Izaguirre ([facility]) Discharge - Reconciliation: 02-Oct-2021 15:40 by: Ambrocio Izaguirre ([facility]) Discharge - Reset to Incomplete: 02-Oct-2021 15:57 by: Ambrocio Izaguirre ([facility]) Discharge - Reconciliation: 02-Oct-2021 15:58 by: Ambrocio Izaguirre ([facility]) Home Medications EnteredHOME MEDICATIONS AT DISCHARGE [...] not required (more content not included)... Normal [facility] PATH REVIEW-IMMUNOHEMATOLOGY on 09-23-2021 PATH REV-IMMUNOHEMOTOL LETA Normal [facility] Comment on above: Result Comment: By [...] PATIENT. Performed By: #### A FPA3 #### [facility] [address] [place] [address] RENAL FUNCTION PANELon 09-23 Albumin [Mass/Vol] 2.7 g/dL Low 3.4 - 5.0 [facility] Comment on above: Performed By: #### V FPA3 #### [facility] [address] [place] [address] Anion gap [Moles/Vol] 10 mmol/L Normal 10 - 20 [facility] Comment on above: Performed By: #### V FPA3 #### [facility] [address] [place] [address] Calcium [Mass/Vol] 7.9 mg/dL Low 8.6 - 10.6 [facility] Comment on above: Performed By: #### V FPA3 #### [facility] [address] [place] [address] Chloride [Moles/Vol] 108 mmol/L High 98 - 107 [facility] Comment on above: Performed By: #### V FPA3 #### [facility] [address] [place] [address] Creatinine [Mass/Vol] 0.39 mg/dL Low 0.50 - 1.05 [facility] Comment on above: Performed By: #### V FPA3 #### [facility] [address] [place] [address] eGFR FEMALE >90 Normal >90 [facility] Comment on above: Result Comment: CALC ULATIONS OF ESTIMATED GFR ARE PERFORMED USING THE 2020 CKD-EPI STUDY REFIT EQUATION WITHOUT THE RACE VARIABLE FOR THE IDMS-TRACEABLE CREATININE METHODS. https://jasn.asnjournals.org/content//ASN.3157527 988 Performed By: #### V FPA3 #### [facility] [address] [place] [address] Glucose [Mass/Vol] 87 mg/dL Normal 74 - 99 [facility] Comment on above: Performed By: #### V FPA3 #### [facility] [address] [place], [place] [address] HCO3 (Bld) [Moles/Vol] 29 mmol/L Normal 21 - 32 [facility] Comment on above: Performed By: #### V FPA3 #### [facility] [address] [place] [address] Phosphate [Mass/Vol] 2.7 mg/dL Normal 2.5 - 4.9 [facility] Comment on above: Result Comment: The performance characteristics of phosphorus testing in heparinized plasma have been validated by the individual laboratory site where testing is performed. Testing on heparinized plasma is not approved by the FDA; however, such approval is not necessary. Performed By: #### V FPA3 #### [facility] [address] [place] [address] Potassium [Moles/Vol] 3.6 mmol/L Normal 3.5 - 5.3 [facility] Comment on above: Performed By: #### V FPA3 #### [facility] [address] [place] [address] Sodium [Moles/Vol] 143 mmol/L Normal 136 - 145 [facility] Comment on above: Performed By: #### V FPA3 #### [facility] [address] [place] [address] Urea nitrogen [Mass/Vol] 9 mg/dL Normal 6 - 23 [facility] Comment on above: Performed By: #### V FPA3 #### [facility] [address] [place] [address] Rehab Note-individual therap yon 09-23-2021 Rehab Note-individual therapy Rehab: Info: Disciplinephysical therapist Mode of Treatmentphysical therapy; individual therapy Time IN14:50 Time OUT15:29 Total Treatment [id number] Patient in ... at end of sessionbed, [...] sit to supine; rolling right Roll Left [place] (Bed Mobility)verbal cues; maximum assist (25% patient effort); 1 person assist Roll Right [place] (Bed Mobility)maximum assist (25% patient effort); verbal cues; 1 person assist Scoot/Bridge [place] (Bed Mobility)verbal cues; maximum assist (25% patient effort); 2 person assist; boost HOB Znnghw-ah-Nmw [place] (Bed Mobility)verbal cues; maximum assist (25% patient effort); 1 person assist Jhx-bm-Cnfvmr [place] (Bed Mobility)set up; verbal cues; maximum assist (25% patient effort); 1 person assist Assistive Device (Bed Mobility)bed rails; draw sheet Transfer Assessment/Interventionssit to stand transfer; stand to sit transfer Sit-Stand [place] (Transfers)2 person assist; moderate assist (50% patient effort) Sit-Stand Assistive Device (Transfers)B arm-in-arm assist Stand-Sit [place] (Transfers)2 person assist; moderate assist (50% patient [...] 23-Sep-2021 15:50 by Boone Broussard (PT) Normal [facility] Renal Function Panelon 09-23 Albumin BCP dye [Mass/Vol] 2.7 g/dL below low threshold 3.4 - 5.0 [facility] [facility] Work Phone: Anion gap [Moles/Vol] 10 mmol/L 10 - 20 [facility] [facility] [facility] Work Phone: Calcium [Mass/Vol] 7.9 mg/dL below low threshold 8.6 - 10.6 [facility] 6 [facility] Work Phone: Chloride [Moles/Vol] 108 mmol/L above high threshold 98 - 107 [facility] [facility] Work Phone: CO2 [Moles/Vol] 29 mmol/L 21 - 32 [facility] [facility] 6 [facility] Work Phone: Creatinine [Mass/Vol] 0.39 mg/dL below [...] RACE VARIABLE FOR THE IDMS-TRACEABLE CREATININE METHODS.https://jasn.asnjournals.org/content/early/ASN .6666824362 ANTIBODY IDENT.on 09-22-2021 ANTIBODY IDENT. Anti-E Normal [facility] Comment on above: Performed By: #### V FPA3 #### [facility] [address] [place] [address] CBCon 09-22-2021 Erythrocyte distribution width (RBC) [Ratio] 13.2 % Normal 11.5 - 14.5 [facility] Comment on above: Performed By: #### V FPA3 #### [facility] [address] [place] [address] Hematocrit (Bld) [Volume fraction] 30.6 % Low 36.0 - 46.0 [facility] Comment on above: Performed By: #### V FPA3 #### [facility] [address] [place] [address] Hemoglobin (Bld) [Mass/Vol] 10.2 g/dL Low 12.0 - 16.0 [facility] Comment on above: Performed By: #### V FPA3 #### [facility] [address] [place] [address] MCHC (RBC) [Mass/Vol] 33.3 g/dL Normal 32.0 - 36.0 [facility] Comment on above: Performed By: #### V FPA3 #### [facility] [address] [place] [address] MCV (RBC) [Entitic vol] 91 fL Normal 80 - 100 [facility] Comment on above: Performed By: #### V FPA3 #### [facility] [address] [place] [address] NUCLEATED RBC 0.0 /100 WBC Normal 0.0-0.0 [facility] Comment on above: Performed By: #### V FPA3 #### [facility] [address] [place] [address] Platelets (Bld) [#/Vol] 215 10*3/uL Normal 150 - 450 [facility] Comment on above: Performed By: #### V FPA3 #### [facility] [address] [place] [address] RBC 3.37 x10E12/L Low 4.00 - 5.20 [facility] Comment on above: Performed By: #### V FPA3 #### [facility] [address] [place] [address] WBC (Bld) [#/Vol] 9.6 10*3/uL Normal 4.4 - 11.3 [facility] Comment on above: Performed By: #### V FPA3 #### [facility] [address] [place] [address] CBC AND DIFFERENTIALon 09-22 % AUTOMATED IMMATURE GRAN 0.4 % Normal 0.0 - 0.9 [facility] Comment on above: Result Comment: Jaleesa ture Granulocyte Count (IG) includes promyelocytes, myelocytes and metamyelocytes but does not include bands. Percent differential counts (%) should be interpreted in the context of the absolute cell counts (cells/L). Performed By: #### C BCDF ####[id number] [place] [address] Basophils (Bld) [#/Vol] 0.02 10*3/uL Normal 0.00 - 0.10 [facility] Comment on above: Performed By: #### C BCDF ####[id number] [place] [address] Basophils/100 WBC (Bld) 0.2 % Normal 0.0 - 2.0 [facility] Comment on above: Performed By: #### C BCDF ####[id number] [place] [address] Eosinophils (Bld) [#/Vol] 0.04 10*3/uL Normal 0.00 - 0.70 [facility] Comment on above: Performed By: #### C BCDF ####[id number] [place] [address] Eosinophils/100 WBC (Bld) 0.4 % Normal 0.0 - 6.0 [facility] Comment on above: Performed By: #### C BCDF ####[id number] [place] [address] Erythrocyte distribution width (RBC) [Ratio] 13.2 % Normal 11.5 - 14.5 [facility] Comment on above: Performed By: #### C BCDF ####[id number] [place] [address] Hematocrit (Bld) [Volume fraction] 30.6 % Low 36.0 - 46.0 [facility] Comment on above: Performed By: #### C BCDF ####[id number] [place] [address] Hemoglobin (Bld) [Mass/Vol] 10.3 g/dL Low 12.0 - 16.0 [facility] Comment on above: Performed By: #### C BCDF ####[id number] [place] [address] Lymphocytes (Bld) [#/Vol] 2.19 10*3/uL Normal 1.20 - 4.80 [facility] Comment on above: Performed By: #### C BCDF ####[id number] [place] [address] Lymphocytes/100 WBC (Bld) 19.9 % Normal 13.0 - 44.0 [facility] Comment on above: Performed By: #### C BCDF ####[id number] [place] [address] MCHC (RBC) [Mass/Vol] 33.7 g/dL Normal 32.0 - 36.0 [facility] Comment on above: Performed By: #### C BCDF ####[id number] [place] [address] MCV (RBC) [Entitic vol] 90 fL Normal 80 - 100 [facility] Comment on above: Performed By: #### C BCDF ####[id number] [place] [address] Monocytes (Bld) [#/Vol] 0.71 10*3/uL Normal 0.10 - 1.00 [facility] Comment on above: Performed By: #### C BCDF ####[id number] [place] [address] Monocytes/100 WBC (Bld) 6.5 % Normal 2.0 - 10.0 [facility] Comment on above: Performed By: #### C BCDF ####[id number] [place] [address] Neutrophils (Bld) [#/Vol] 7.98 10*3/uL High 1.20 - 7.70 [facility] Comment on above: Performed By: #### C BCDF ####[id number] [place] [address] Neutrophils/100 WBC (Bld) 72.6 % Normal 40.0 - 80.0 [facility] Comment on above: Performed By: #### C BCDF ####[id number] [place] [address] NUCLEATED RBC 0.0 /100 WBC Normal 0.0-0.0 [facility] Comment on above: Performed By: #### C BCDF ####[id number] [place] [address] Platelets (Bld) [#/Vol] 242 10*3/uL Normal 150 - 450 [facility] Comment on above: Performed By: #### C BCDF ####[id number] [place] [address] RBC 3.39 x10E12/L Low 4.00 - 5.20 [facility] Comment on above: Performed By: #### C BCDF ####[id number] [place] [address] WBC (Bld) [#/Vol] 11.0 10*3/uL Normal 4.4 - 11.3 [facility] Comment on above: Performed By: #### C BCDF ####[id number] [place] [address] Complete Blood Count + Diffe rentialon 09-22-2021 [...] (Bld) 6.5 % 2.0 - 10.0 [facility] [facility] [facility] Work Phone: Neutrophils/100 WBC [...] - 11.3 [facility] [facility] Work Phone: Complete [...] + Differential 0.0 {/100_WBC} 0.0-0.0 [facility] Work Phone: Complete Blood Count + Differential 0.02 {x10E9/L} See Below [facility] Work Phone: Comment on above: Reference Range: 0.0 0 - 0.10 Complete Blood Count + Differential 0.04 {x10E9/L} See Below [facility] Work Phone: Comment on above: Reference Range: 0.0 0 - 0.70 Complete Blood Count + Differential 0.71 {x10E9/L} See Below [facility] [address] Work Phone: Comment on above: Reference Range: 0.1 0 - 1.00 Complete Blood Count + Differential 2.19 {x10E9/L} See Below [facility] [address] Work Phone: Comment on above: Reference Range: 1.2 0 - 4.80 Complete Blood Count + Differential 7.98 {x10E9/L} above high threshold See Below [facility] [address] Work Phone: Comment on above: Reference Range: 1.2 0 - 7.70 Cult, Urineon 09-22-2021 Bacteria identified Cx Nom (U) [facility] Work Phone: Daily Progress Note - Psychi atryon 09-22-2021 Daily Progress Note - Psychiatry Subjective Data: MORALES LEE is a 46 year old Female who is Hospital Day # 8. Pt seen lying in bed this morning, with at bedside. She is currently on FAMILY REUNIFICATION SPECIALIST for pain, and reports being tired this [...] this time. Objective: Objective Information: T PRBPSpO2 [id number]/5792% Date/Time09/22 0:001/18 8:001/18 8:001/18 8:001/18 8:00 Range(36.3C [...] Fair. Medications: Continuous Medications ----- 1. HYDROmorphone FAMILY REUNIFICATION SPECIALIST 25 mg/ NaCL 0.9% 50 mL: 2.6 mg/hr IV FAMILY REUNIFICATION SPECIALIST 2. Sodium Chloride 0.9% Infusion: 1000 mL [...] I have reviewed these laboratory results in [facility]: Complete Blood Count + Differential 22-Sep-2021 [...] from Suboxone (more content not included)... Normal [facility] Daily Progress Note-Neurosjudy stearns 09-22-2021 Daily Progress Note-Neurosurgery Service: Neurosurgery Subjective Data: MORALES LEE is a 46 year old Female who is Hospital Day # 8 and POD #1 for posterior L4-L5 decompression;posterior L4-L5 arthrodesis. Objective Data: Objective Information: T PRBPSpO2 [id number]/5895% Date/Time09/22 0:00118 0:00118 0:00118 0:00118 0:00 Range(36.2C - 36.8C ) (82 - 109 ) (12 - 20 ) (85 - 132 )/ (49 - 89 ) (94% - 100% ) As of 21-Sep-2021 17:00:00, patient is on 4 L/min of oxygen via nasal cannula. Pain reported at 09/21 16:33: 5 = Moderate ---- Intake and Output ----- Mn/Dy/Year TimeIntakeOutputNet Sep 20, 2021 10:00 [id number] Sep 20, 2021 6:00 [id number] The Intake and Output Totals for the last 24 hours are: IntakeOutputNet [id number] Physical Exam by System: Neurological: A&Ox3 RUE [...] Chronic pain recs- intra-op ketamine, meloxicam post-op, FAMILY REUNIFICATION SPECIALIST until good PT eval, Suboxone as OP [...] the note. I personally evaluated the patient [id number] Electronic Signatures: Fidel Maciel ( (Resident)) (Signed 18-Benjamin-2022 00:35) Authored: Service, Subjective Data, Objective Data, Assessment and Plan, Note Completion Lex Frederick) (Signed 22-Sep-2021 10:31) Authored: Note Completion Co-Signer: Service, Subjective Data, Objective Data, Assessment and Plan, Note Completion Last Updated: 22-Sep-2021 10:31 by Lex Frederick) Normal [facility] Discharge [id number] Discharge Profile2 Discharge Orders: Anticipated Discharge Date: Anticipated Discharge [id number] Problem List: Additional Dx: Spinal stenosis of [...] Please call your Neurosurgeon's office (Dr. Frederick [phone]) if you have any questions. -If you [...] or twist. Instead, bend at knees to waste picker objects. Wound Care: Inspect your incision [...] taking Acetamin (more content not included)... Normal [facility] LACTATEon 09-22-2021 Lactate [Moles/Vol] 0.8 mmol/L Normal 0.4 - 2.0 [facility] Comment on above: Result Comment: Trina puncture immediately after or during the administration of Metamizole may lead to falsely low results. Testing should be performed immediately prior to Metamizole dosing. Performed By: #### C BC #### [facility] [address] [place] [address] Laboratory - Hematology and Cell countson 09-22-2021 Erythrocyte distribution width (RBC) [Ratio] 13.2 % See Below [facility] [facility] Work Phone: Comment on above: Reference Range: 11. 5 - 14.5 Hematocrit (Bld) [Volume fraction] 30.6 % below low threshold See Below [facility] 6 [facility] Work Phone: Comment on above: Reference Range: 36. 0 - 46.0 Hemoglobin (Bld) [Mass/Vol] 10.2 g/dL below low threshold See Below [facility] [facility] [facility] Work Phone: Comment on above: Reference Range: 12. 0 - 16.0 MCHC (RBC) [Mass/Vol] 33.3 g/dL See Below [facility] 6 [facility] Work Phone: Comment on above: Reference Range: 32. 0 - 36.0 MCV (RBC) [Entitic vol] 91 fL 80 - 100 [facility] [facility] [facility] Work Phone: Platelets (Bld) [#/Vol] 215 10*3/uL 150 - 450 [facility] [facility] Work Phone: RBC (Bld) [#/Vol] 3.37 {x10E12/L} below low threshold See Below [facility] [facility] [facility] Work Phone: Comment on above: Reference Range: 4.0 0 - 5.20 WBC (Bld) [#/Vol] 9.6 10*3/uL 4.4 - 11.3 [facility] 6 [facility] Work Phone: Lactate, Levelon 09-22-2021 Lactate [Moles/Vol] 0.8 mmol/L 0.4 - 2.0 [facility] Work Phone: Comment on above: Venipuncture immedia tely after or during the administration of Metamizole may lead to falsely low results. Testing should be performed immediately prior to Metamizole dosing. No Panel Informationon 09-22 0.0 {/100_WBC} 0.0-0.0 [facility] n [facility] [facility] [facility] Work Phone: OT Evaluation v2-occupationa l therapy - co-eval with PT to [facility] 09-22-2021 OT Evaluation v2-occupational therapy - co-eval with PT to Rehab: Info: Mode of Treatmentoccupational therapy; co-eval with PT to maximize pt's mobility and safety. Time IN10:50 Time OUT11:40 Total Treatment [id number] Patient in ... at end of sessionbed, 3 railings up; alarm on Communicated with ... at end of sessionbedside nurse Patient Effortgood Symptoms Noted During/After Treatmentfatigue; increased pain Patient Profile Reviewedyes Onset of Illness/Injury or Date of [id number] Reason for Referral-09/18/21: s/p exploration of spinal [...] EOB sitting. Pertinent History of Current Functional Zevrmsf79 y/o with hx of HTN, C6-7 ACDF, [...] TubesIV; triple lumen; telemetry; urethral catheter indwelling; FAMILY REUNIFICATION SPECIALIST pump, DAVOL drain, wound vac O2 Deliverynasal cannula; 4L Pre Treatment Patient Positionsupine Pre Treatment Blood Pressure Xcbwjqnk89 mmHg Pre Treatment Diastolic (mm Hg)46 mmHg Pre Treatment Heart Rate (beats/min)67 Pre Treatment Respiratory Rate (breaths/min)19 Pre Treatment SpO2 (%)96 % Pre Treatment Oxygen Deliverysupplemental O2 Pre Treatment CommentsMAP 56 During Treatment Patient Positionsitting During Treatment Blood Pressure Jidvviey67 mmHg During Treatment Diastolic (mm Hg)77 mmHg [...] to sit; sit to supine Roll Left [place] (Bed Mobility)set up; verbal cues; 2 person assist; Pt required assist to bend BLE at (more content not included)... Normal [facility] PATH REVIEW-IMMUNOHEMATOLOGY on 09-22-2021 PATH REV-IMMUNOHEMOTOL ZURDO Normal [facility] Comment on above: Result Comment: By [...] THIS PATIENT. Performed By: #### C #### [facility] [address] [place] [address] PT Evaluation w2-fq-kudcewsw t - co-treatment with OT to maxion 09-22-2021 PT Evaluation j8-xn-jfkbydavk - co-treatment with OT to maxi Rehab: Info: Mode of Treatmentphysical therapy; co-treatment; co-treatment with OT to maximize safety, mobility and ADL participation Time IN10:50 Time OUT11:40 Total Treatment [id number] Patient in ... at end of sessionbed, 3 railings up; alarm on Communicated with ... at end of sessionbedside nurse Patient Effortgood Symptoms Noted During/After Treatmentfatigue; increased pain Patient Profile Reviewedyes Onset of Illness/Injury or Date of [id number] Reason for Referral-09/18/21: s/p exploration of spinal [...] TubesIV; triple lumen; telemetry; urethral catheter indwelling; FAMILY REUNIFICATION SPECIALIST pump, DAVOL drain, wound vac O2 Deliverynasal cannula; 4L Pre Treatment Patient Positionsupine Pre Treatment Blood Pressure Odtwgqvi64 mmHg Pre Treatment Diastolic (mm Hg)46 mmHg Pre Treatment Heart Rate (beats/min)67 Pre Treatment SpO2 (%)96 % Pre Treatment Oxygen Deliverysupplemental O2 During Treatment Patient Positionsitting During Treatment Blood Pressure Ogybkgfp05 mmHg During Treatment Diastolic (mm Hg)77 mmHg [...] sit to supine; rolling right Roll Left [place] (Bed Mobility)verbal cues; 2 person assist; Pt required assist to bend BLE at knees and to initiate turn at shoulders and hips, verbal cues for grasp on bed rail, technique, direction follow, and encouragement.; maximum assist (25% patient effort) Roll Right [place] (Bed Mobility)2 person assist; maximum assist (25% patient effort); verbal cues Scoot/Bridge [place] (Bed Mobility)verbal cues; maximum assist (25% patient effort); 2 person assist; boost HOB Rzsqnn-kc-Qus [place] (Bed Mobility)verbal cues; maximum assist (25% patient effort); 1 person assist Zqp-jj-Tnpbwo [place] (Bed Mobility)set up; verbal cues; maximum assist (25% patient effort); 1 person assist Assistive Device (Bed Mobility)bed rails; draw sheet Impairments Impacting Function (Mobility)balance; cognition; endurance/activity tolerance; pain; strength; postural/trunk control; motor control Motor: Sitting, Static (Balance)SBA Sitting, Dynamic (Balance)CGA Zgy-ya-Cblkk (Balance)MADELIN this visit. Pt hypotensive Sensory: Pre-Treatment Pain Rating7/10 Post-Treatment Pain Rating7/10 Comment, Pre/Post Treatment PainPt reported pain throughout buttocks and back, utilized FAMILY REUNIFICATION SPECIALIST pump as needed. Pain LimitationFunctional mobility limited due pain; ADLs/IADLs limited due to pain; Participation limited by pain; RN or team was notified of limitations due to p (more content not included)... Normal [facility] RENAL FUNCTION PANELon 09-22 Albumin [Mass/Vol] 2.7 g/dL Low 3.4 - 5.0 [facility] Comment on above: Performed By: #### C BC #### [facility] [address] [place] [address] Anion gap [Moles/Vol] 10 mmol/L Normal 10 - 20 [facility] Comment on above: Performed By: #### C BC #### [facility] [address] [place] [address] Calcium [Mass/Vol] 7.8 mg/dL Low 8.6 - 10.6 [facility] Comment on above: Performed By: #### C BC #### [facility] [address] [place] [address] Chloride [Moles/Vol] 105 mmol/L Normal 98 - 107 [facility] Comment on above: Performed By: #### C BC #### [facility] [address] [place] [address] Creatinine [Mass/Vol] 0.49 mg/dL Low 0.50 - 1.05 [facility] Comment on above: Performed By: #### C BC #### [facility] [address] [place] [address] eGFR FEMALE >90 Normal >90 [facility] Comment on above: Result Comment: CALC ULATIONS OF ESTIMATED GFR ARE PERFORMED USING THE 2020 CKD-EPI STUDY REFIT EQUATION WITHOUT THE RACE VARIABLE FOR THE IDMS-TRACEABLE CREATININE METHODS. https://jasn.asnjournals.org/content//ASN.2662956 988 Performed By: #### C BC #### [place] [address] [place] [address] Glucose [Mass/Vol] 93 mg/dL Normal 74 - 99 [facility] Comment on above: Performed By: #### C BC #### [facility] [address] [place] [address] HCO3 (Bld) [Moles/Vol] 29 mmol/L Normal 21 - 32 [facility] Comment on above: Performed By: #### C BC #### [facility] [address] [place] [address] Phosphate [Mass/Vol] 2.4 mg/dL Low 2.5 - 4.9 [facility] Comment on above: Result Comment: The performance characteristics of phosphorus testing in heparinized plasma have been validated by the individual laboratory site where testing is performed. Testing on heparinized plasma is not approved by the FDA; however, such approval is not necessary. Performed By: #### C BC #### [facility] [address] [place] [address] Potassium [Moles/Vol] 4.3 mmol/L Normal 3.5 - 5.3 [facility] Comment on above: Performed By: #### C BC #### [facility] [address] [place] [address] Sodium [Moles/Vol] 140 mmol/L Normal 136 - 145 [facility] Comment on above: Performed By: #### C BC #### [facility] [address] [place] [address] Urea nitrogen [Mass/Vol] 9 mg/dL Normal 6 - 23 [facility] Comment on above: Performed By: #### C #### [facility] [address] [place] [id number] Renal Function Panelon 09-22 Albumin BCP dye [...] lwell [facility] Work Phone: Sodium [Moles/Vol] 140 mmol/L 136 [...] RACE VARIABLE FOR THE IDMS-TRACEABLE CREATININE METHODS.https://jasn.asnjournals.org/content//ASN .2622623469 UA MICROSCOPICon 09-22-2021 RBC 6 /HPF Abnormal 0-5 [facility] Comment on above: Performed By: #### C BC #### [facility] [address] [place] [address] SQUAMOUS EPITH. CELLS 1 /HPF Normal [facility] Comment on above: Performed By: #### C BC #### [facility] [address] [place] [address] WBC 8 /HPF Abnormal 0-5 [facility] Comment on above: Performed By: #### C BC #### [facility] [address] [place] [address] URINALYSIS WITH CULTURE IF I NDICATEDon 09-22-2021 Appearance (U) CLEAR Normal CLEAR [facility] Comment on above: Performed By: #### U ARFX ####[id number] [place] [address] Bilirubin Ql (U) Negative Normal NEGATIVE [facility] Comment on above: Performed By: #### U ARFX ####[id number] [place] [address] Color (U) MIRANDA Normal STRAW,YELLO W [facility] Comment on above: Performed By: #### U ARFX ####[id number] [place] [address] Glucose Ql (U) Negative Normal NEGATIVE [facility] Comment on above: Performed By: #### U ARFX ####[id number] [place] [address] Hemoglobin Ql (U) Negative Normal NEGATIVE [facility] Comment on above: Performed By: #### U ARFX ####[id number] [place] [address] Ketones Ql (U) 20 (1+) Abnormal NEGATIVE [facility] Comment on above: Performed By: #### U ARFX ####[id number] [place] [address] Leukocyte esterase Test strip Ql (U) Negative Normal NEGATIVE [facility] Comment on above: Performed By: #### U ARFX ####[id number] [place] [address] Nitrite Ql (U) Negative Normal NEGATIVE [facility] Comment on above: Performed By: #### U ARFX ####[id number] [place] [address] pH (U) 5.0 [pH] Normal 5.0 - 8.0 [facility] Comment on above: Performed By: #### U ARFX ####[id number] [place] [address] Protein Ql (U) 30 (1+) Abnormal NEGATIVE [facility] Comment on above: Performed By: #### U ARFX ####[id number] [place] [address] Specific gravity (U) [Rel density] 1.040 High 1.005 - 1.035 [facility] Comment on above: Performed By: #### U ARFX ####[id number] [place] [address] Urobilinogen (U) [Mass/Vol] 2.0 mg/dL High 0.0 - 1.9 [facility] Comment on above: Result Comment: Due [...] positive urobilinogen. Performed By: #### U ARFX ####[id number] [id number] Lab Specimen Source Normal [facility] Comment on above: Performed By: #### U ARFX ####[id number] [place] [address] Performed By: #### C BC #### [facility] [address] [place] [address] Color (U) MIRANDA See Below MG-Gastroen terology-Rosendo [...] CULTURE,BACTERIALon URINE CULTURE,BACTERIAL PATIENT: MORALES LEE LOCATION: [place] [address] BILL#: [id number] : 71 AGE: SEX: F ORDERED BY: AMBROCIO IZAGUIRRE SOURCE: URINE COLLECTED: 09/22/21 12:59 ANTIBIOTICS AT [facility].: RECEIVED : 09/22/21 14:59 SITE: R E S U L T S URINE CULTURE,BACTERIAL FINAL 09/23/21 09:04 NO SIGNIFICANT GROWTH. Normal [facility] Comment on above: Performed By: #### C BC #### [facility] [address] [place] [address] Urinalysis, Microscopicon Urinalysis, Microscopic 1 {/HPF} [facility]-Gastroen [facility]ology-[facility] [place] [facility] Work Phone: Urinalysis, Microscopic 6 {/HPF} Abnormal 0-5 [facility]-Gastroen terology-[facility] [place] [facility] Work Phone: Urinalysis, Microscopic 8 {/HPF} Abnormal 0-5 [facility]astroen terology-[facility] [place] [facility] Work Phone: Comment on above: SOURCE: CBCon 09-21-2021 Erythrocyte distribution width (RBC) [Ratio] 13.1 % Normal 11.5 - 14.5 [facility] Comment on above: Performed By: #### R ENAL #### [facility] [address] [place] [address] Hematocrit (Bld) [Volume fraction] 34.5 % Low 36.0 - 46.0 [facility] Comment on above: Performed By: #### R ENAL #### [facility] [address] [place] [address] Hemoglobin (Bld) [Mass/Vol] 11.4 g/dL Low 12.0 - 16.0 [facility] Comment on above: Performed By: #### R ENAL #### [facility] [address] [place] [address] MCHC (RBC) [Mass/Vol] 33.0 g/dL Normal 32.0 - 36.0 [facility] Comment on above: Performed By: #### R ENAL #### [facility] [address] [place] [address] MCV (RBC) [Entitic vol] 91 fL Normal 80 - 100 [facility] Comment on above: Performed By: #### R ENAL #### [facility] [address] [place] [address] NUCLEATED RBC 0.0 /100 WBC Normal 0.0-0.0 [facility] Comment on above: Performed By: #### R ENAL #### [facility] [address] [place] [address] Platelets (Bld) [#/Vol] 269 10*3/uL Normal 150 - 450 [facility] Comment on above: Performed By: #### R ENAL #### [facility] [address] [place] [address] RBC 3.81 x10E12/L Low 4.00 - 5.20 [facility] Comment on above: Performed By: #### R ENAL #### [facility] [address] [place] [address] WBC (Bld) [#/Vol] 14.6 10*3/uL High 4.4 - 11.3 [facility] Comment on above: Performed By: #### R ENAL #### [facility] [address] [place] [address] Erythrocyte distribution width (RBC) [Ratio] 13.2 % Normal 11.5 - 14.5 [facility] Comment on above: Performed By: #### R ENAL #### [facility] [address] [place] [address] Hematocrit (Bld) [Volume fraction] 35.8 % Low 36.0 - 46.0 [facility] Comment on above: Performed By: #### R ENAL #### [facility] [address] [place] [address] Hemoglobin (Bld) [Mass/Vol] 11.9 g/dL Low 12.0 - 16.0 [facility] Comment on above: Performed By: #### R ENAL #### [facility] [address] [place] [address] MCHC (RBC) [Mass/Vol] 33.2 g/dL Normal 32.0 - 36.0 [facility] Comment on above: Performed By: #### R ENAL #### [facility] [address] [place] [address] MCV (RBC) [Entitic vol] 91 fL Normal 80 - 100 [facility] Comment on above: Performed By: #### R ENAL #### [facility] [address] [place] [address] NUCLEATED RBC 0.0 /100 WBC Normal 0.0-0.0 [facility] Comment on above: Performed By: #### R ENAL #### [facility] [address] [place] [address] Platelets (Bld) [#/Vol] 215 10*3/uL Normal 150 - 450 [facility] Comment on above: Performed By: #### R ENAL #### [facility] [address] [place] [address] RBC 3.93 x10E12/L Low 4.00 - 5.20 [facility] Comment on above: Performed By: #### R ENAL #### [facility] [address] [place] [address] WBC (Bld) [#/Vol] 14.8 10*3/uL High 4.4 - 11.3 [facility] Comment on above: Performed By: #### R ENAL #### [facility] [address] [place] [address] Daily Progress Note-Nuha stearns 09-21-2021 Daily Progress Note-Neurosurgery Service: Neurosurgery Subjective Data: MORALES LEE is a 46 year old Female who is Hospital Day # 7 and POD #3 for 1. Exploration of spinal fusion;2. Reduction of L4/5 dislocation;2. L5-pelvis instrumented fusion with posterolateral arthrodesis;4. Extension of instrumentation with multiple kwame construct and side connectors. Objective Data: Objective Information: T PRBPSpO2 [id number]/8495% Date/Time09/20 14::: 4: 4:00 Range(36.9C - 37.2C ) (82 [...] ----- Mn/Dy/Year TimeIntakeOutputNet Sep 19, 2021 10:00 [id number] Sep 19, 2021 6:00 [id number] The Intake and Output Totals for the last 24 hours are: IntakeOutputNet [id number] Physical Exam by System: Neurological: A&Ox3 RUE [...] Chronic pain recs- intra-op ketamine, meloxicam post-op, FAMILY REUNIFICATION SPECIALIST until good PT eval, Suboxone as OP [...] the following: I personally evaluated the patient [id number] Comments/ Additional Findings The patient has been [...] the thoracolumbar spine that was done last night that showed presence of moderate to severe [...] inborn buckling of the ligamentum flavum from rastafarian of for significant kyphotic malalignment spine I [...] MRI was performed and with 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 Normal [facility] Laboratory - Blood bankon ABO group [...] lumbar spine September 18, 2021 ACCESSION NUMBER(S): [id number]; [id number] ORDERING CLINICIAN: DEVANTE NUNEZ TECHNIQUE: Sagittal axial T2 weighted images of [...] S1-2. Electronically signed by: NATALIA WALL, Normal [facility] NR MRI T-SPINE WOon 09-21-19 22 NR MRI T-SPINE WO Patient Name: MORALES LEE STUDY: MRI T-SPINE WO; MRI L-SPINE WO; 09/20/2021 10:40 pm; 09/20/2021 10:42 pm INDICATION: postop foot weakness, Lie Flat: Yes, Pre Med: No . COMPARISON: MRI December 24, [address] of the lumbar spine September 18, 2021 ACCESSION NUMBER(S): [id number]; [id number] ORDERING CLINICIAN: DEVANTE NUNEZ TECHNIQUE: Sagittal axial T2 weighted images of [...] S1-2. Electronically signed by: NATALIA WALL, Normal [facility] No Panel Informationon 09-21 0.0 {/100_WBC} 0.0-0.0 [facility] n [facility] [place] [facility] Work Phone: ORDER RECD [facility] [place] [facility] Work Phone: 0.0 {/100_WBC} 0.0-0.0 [facility]-Gastroe n [facility]ology-[place] [place] [facility] Work Phone: Please click on the link to view the study images Normal [facility] [place] [facility] Work Phone: Path Review Immunohematology on 09-21-2021 Path Review Immunohematology ZURDO [facility]-Gastroen terology-Rosendo moura 6 [facility] Work Phone: Comment on above: By her/his [...] Preop Checklist Preop Checklist: Preop Checklist: Arrival [id number] Arrival Time11:00 Procedure Typere-exploration of spine Temperature C36.2 degrees C Temperature F97.1 degrees F Heart Rate91 beats per minute Respiratory Rate18 breath per minute Blood Pressure Ckcisigb256 mm/Hg Blood Pressure Lbdrropxs04 mm/Hg COVID 19 Results in Last 7 [...] Updated: 21-Sep-2021 11:17 by Linh Buchanan) Normal [facility] REQUEST-LEUKOREDUCED RED ANJU LSon 09-21-2021 REQUEST-LEUKOREDUCED RED CELLS ORDER RECD Normal [facility] Comment on above: Performed By: #### A FPA3 #### [facility] [address] [place] [address] TYPE + SCREENon 09-21-2021 ABO TYPE O Normal [facility] Comment on above: Performed By: #### A FPA3 #### [facility] [address] [place] [address] RH TYPE Positive Normal [facility] Comment on above: Performed By: #### A FPA3 #### [facility] [address] [place] [address] ABO TYPE Canceled Normal [facility] Comment on above: Order Comment: VENECIA ESPINO, 09/21/2021 05:08TEST TYPE + SCREEN WAS CANCELLED, 09/21/2021 05:06 NO PHLEB ID ON TUBE. Result Comment: CALL ED MERA ESPINO, 09/21/2021 05:08 Performed By: #### A FPA3 #### [facility] [address] [place] [id number] RH TYPE Canceled Normal [facility] Comment on above: Order Comment: VENECIA ESPINO, 09/21/2021 05:08TEST TYPE + SCREEN WAS CANCELLED, 09/21/2021 05:06 NO PHLEB ID ON TUBE. Result Comment: CALL ED MERA ESPINO, 09/21/2021 05:08 Performed By: #### A FPA3 #### [facility] [address] [place] [address] CBCon 09-20-2021 Erythrocyte distribution width (RBC) [Ratio] 13.2 % Normal 11.5 - 14.5 [facility] Comment on above: Performed By: #### C BC #### [facility] [address] [place] [address] Hematocrit (Bld) [Volume fraction] 30.8 % Low 36.0 - 46.0 [facility] Comment on above: Performed By: #### C BC #### [facility] [address] [place] [id number] Hemoglobin (Bld) [Mass/Vol] 9.8 g/dL Low 12.0 - 16.0 [facility] Comment on above: Performed By: #### C BC #### [facility] [address] [place] [address] MCHC (RBC) [Mass/Vol] 31.8 g/dL Low 32.0 - 36.0 [facility] Comment on above: Performed By: #### C BC #### [facility] [address] [place] [address] MCV (RBC) [Entitic vol] 93 fL Normal 80 - 100 [facility] Comment on above: Performed By: #### C BC #### [facility] [address] [place] [address] NUCLEATED RBC 0.0 /100 WBC Normal 0.0-0.0 [facility] Comment on above: Performed By: #### C BC #### [facility] [address] [place] [address] Platelets (Bld) [#/Vol] 224 10*3/uL Normal 150 - 450 [facility] Comment on above: Performed By: #### C BC #### [facility] [address] [place] [address] RBC 3.32 x10E12/L Low 4.00 - 5.20 [facility] Comment on above: Performed By: #### C BC #### [facility] [address] [place] [address] WBC (Bld) [#/Vol] 12.1 10*3/uL High 4.4 - 11.3 [facility] Comment on above: Performed By: #### C BC #### [facility] [address] [place] [address] Daily Progress Note-Nuha stearns 09-20-2021 Daily Progress Note-Neurosurgery Service: Neurosurgery Subjective Data: JOHAN LEEY Elena is a 46 year old Female who is Hospital Day # 6 and POD #2 for 1. Exploration of spinal fusion;2. Reduction of L4/5 dislocation;2. L5-pelvis instrumented fusion with posterolateral arthrodesis;4. Extension of instrumentation with multiple kwame construct and side connectors. Objective Data: Objective Information: T PRBPSpO2 Value36.7343563/5095% Date/Time09/19 16: 1: 16: 1:341 1:34 Range(36.7C - 36.7C ) (84 - 110 ) (18 - 18 ) (82 - 118 )/ (50 - 97 ) (94% - 97% ) As of 19-Sep-2021 08:00:00, patient is on 2 L/min of oxygen via nasal cannula. ---- Intake and Output ----- Mn/Dy/[facility]Int[facility]OutUNC [facility] [place] Sep 18, 2021 10:00 [id number] The Intake and Output Totals for the [...] chronic pain recs- intra-op ketamine, meloxicam post-op, FAMILY REUNIFICATION SPECIALIST until good PT eval, Suboxone as OP [...] Note Completion Last Updated: 21-Sep-2021 11:28 by Peerz Carlisle) Normal [facility] Laboratory - Hematology and Cell countson [...] 6 [facility] Work Phone: Platelets (Bld) [#/Vol] 224 10*3/uL [...] 20-Sep-2021 12:25 by Carole Carlos (OT) Normal [facility] PT Evaluation v2-attemptedon 09-20-2021 PT Evaluation v2-attempted Rehab: Info: Mode of Treatmentattempted Time IN12:00 Evaluation Not PerformedPer RN pt not appropriate for therapy, pt continues to have low BP and plan to receive blood, will hold and reattempt as appropriate Electronic Signatures: Kaykay Yoo (PT) (Signed 20-Sep-2021 12:42) Authored: Info Last Updated: 20-Sep-2021 12:42 by Kaykay Yoo (PT) Normal [facility] REQUEST-LEUKOREDUCED RED ANJU LSon 09-20-2021 REQUEST-LEUKOREDUCED RED CELLS ORDER RECD Normal [facility] Comment on above: Performed By: #### R ENAL #### [place] [address] [place] [address] CBCon 09-19-2021 Erythrocyte distribution width (RBC) [Ratio] 12.4 % Normal 11.5 - 14.5 [facility] Comment on above: Performed By: #### R ENAL #### [facility] [address] [place] [address] Hematocrit (Bld) [Volume fraction] 38.3 % Normal 36.0 - 46.0 [facility] Comment on above: Performed By: #### R ENAL #### [facility] [address] [place] [address] Hemoglobin (Bld) [Mass/Vol] 13.4 g/dL Normal 12.0 - 16.0 [facility] Comment on above: Performed By: #### R ENAL #### [facility] [address] [place] [address] MCHC (RBC) [Mass/Vol] 35.0 g/dL Normal 32.0 - 36.0 [facility] Comment on above: Performed By: #### R ENAL #### [facility] [address] [place] [address] MCV (RBC) [Entitic vol] 85 fL Normal 80 - 100 [facility] Comment on above: Performed By: #### R ENAL #### [facility] [address] [place] [address] NUCLEATED RBC 0.0 /100 WBC Normal 0.0-0.0 [facility] Comment on above: Performed By: #### R ENAL #### [facility] [address] [place] [address] Platelets (Bld) [#/Vol] 326 10*3/uL Normal 150 - 450 [facility] Comment on above: Performed By: #### R ENAL #### [facility] [address] [place] [address] RBC 4.51 x10E12/L Normal 4.00 - 5.20 [facility] Comment on above: Performed By: #### R ENAL #### [facility] [address] [place] [address] WBC (Bld) [#/Vol] 20.5 10*3/uL High 4.4 - 11.3 [facility] Comment on above: Performed By: #### R ENAL #### [facility] [address] [place] [address] CBC AND DIFFERENTIALon 09-19 % AUTOMATED IMMATURE GRAN 0.6 % Normal 0.0 - 0.9 [facility] Comment on above: Result Comment: Jaleesa ture Granulocyte Count (IG) includes promyelocytes, myelocytes and metamyelocytes but does not include bands. Percent differential counts (%) should be interpreted in the context of the absolute cell counts (cells/L). Performed By: #### V FPA3 #### [facility] [address] [place] [address] Basophils (Bld) [#/Vol] 0.03 10*3/uL Normal 0.00 - 0.10 [facility] Comment on above: Performed By: #### V FPA3 #### [facility] [address] [place] [address] Basophils/100 WBC (Bld) 0.1 % Normal 0.0 - 2.0 [facility] Comment on above: Performed By: #### V FPA3 #### [facility] [address] [place] [address] Eosinophils (Bld) [#/Vol] 0.01 10*3/uL Normal 0.00 - 0.70 [facility] Comment on above: Performed By: #### V FPA3 #### [facility] [address] [place] [address] Eosinophils/100 WBC (Bld) 0.0 % Normal 0.0 - 6.0 [facility] Comment on above: Performed By: #### V FPA3 #### [facility] [address] [place] [address] Erythrocyte distribution width (RBC) [Ratio] 12.9 % Normal 11.5 - 14.5 [facility] Comment on above: Performed By: #### V FPA3 #### [facility] [address] [place] [address] Hematocrit (Bld) [Volume fraction] 38.3 % Normal 36.0 - 46.0 [facility] Comment on above: Performed By: #### V FPA3 #### [facility] [address] [place] [address] Hemoglobin (Bld) [Mass/Vol] 12.7 g/dL Normal 12.0 - 16.0 [facility] Comment on above: Performed By: #### V FPA3 #### [facility] [address] [place] [address] Lymphocytes (Bld) [#/Vol] 2.89 10*3/uL Normal 1.20 - 4.80 [facility] Comment on above: Performed By: #### V FPA3 #### [facility] [address] [place] [address] Lymphocytes/100 WBC (Bld) 13.5 % Normal 13.0 - 44.0 [facility] Comment on above: Performed By: #### V FPA3 #### [facility] [address] [place] [address] MCHC (RBC) [Mass/Vol] 33.2 g/dL Normal 32.0 - 36.0 [facility] Comment on above: Performed By: #### V FPA3 #### [facility] [address] [place] [address] MCV (RBC) [Entitic vol] 89 fL Normal 80 - 100 [facility] Comment on above: Performed By: #### V FPA3 #### [facility] [address] [place] [address] Monocytes (Bld) [#/Vol] 1.23 10*3/uL High 0.10 - 1.00 [facility] Comment on above: Performed By: #### V FPA3 #### [facility] [address] [place] [address] Monocytes/100 WBC (Bld) 5.7 % Normal 2.0 - 10.0 [facility] Comment on above: Performed By: #### V FPA3 #### [facility] [address] [place] [address] Neutrophils (Bld) [#/Vol] 17.16 10*3/uL High 1.20 - 7.70 [facility] Comment on above: Performed By: #### V FPA3 #### [facility] [address] [place] [address] Neutrophils/100 WBC (Bld) 80.1 % Normal 40.0 - 80.0 [facility] Comment on above: Performed By: #### V FPA3 #### [facility] [address] [place] [address] NUCLEATED RBC 0.0 /100 WBC Normal 0.0-0.0 [facility] Comment on above: Performed By: #### V FPA3 #### [facility] [address] [place] [address] Platelets (Bld) [#/Vol] 401 10*3/uL Normal 150 - 450 [facility] Comment on above: Performed By: #### V FPA3 #### [facility] [address] [place] [address] RBC 4.28 x10E12/L Normal 4.00 - 5.20 [facility] Comment on above: Performed By: #### V FPA3 #### [facility] [address] [place] [address] WBC (Bld) [#/Vol] 21.5 10*3/uL High 4.4 - 11.3 [facility] Comment on above: Performed By: #### V FPA3 #### [facility] [address] [place] [address] COAGULATION SCREENon 022 aPTT Coag (Bld) [Time] 29 s Normal 26 - 39 [facility] Comment on above: Result Comment: Note new reference range as of 08/04/2021 at 10:00am. Performed By: #### R ENAL #### [facility] [address] [place] [address] PT Coag (PPP) [Time] 11.5 s Normal 9.8 - 13.4 [facility] Comment on above: Result Comment: Note new reference range as of 08/04/2021 at 10:00am. Performed By: #### R ENAL #### [facility] [address] [place] [address] PT, INR 1.0 Normal 0.9 - 1.1 [facility] Comment on above: Performed By: #### R ENAL #### [facility] [address] [place] [address] Complete Blood Count + Diffe rentialon 09-19-2021 [...] 0.0 % 0.0 - 6.0 MG-Gastroen terology-[facility] 6 [facility] Work Phone: Complete Blood Count + Differential 0.6 % 0.0 - 0.9 [facility]-Gastroen terology-[facility] 6 [facility] Work Phone: Comment on above: Immature Granulocyte Count (IG) includes promyelocytes, myelocytes and metamyelocytes but does not include bands. Percent differential counts (%) should be interpreted in the context of the absolute cell counts (cells/L). Complete Blood Count + Differential 0.0 {/100_WBC} 0.0-0.0 [facility] 6 [facility] Work Phone: Complete Blood Count + Differential 0.03 {x10E9/L} See Below MG-Gastroen terology-Rosendo [facility] 6 [facility] Work Phone: Comment on above: Reference Range: 0.0 0 - 0.10 Complete Blood Count + Differential 0.01 {x10E9/L} See Below MG-Gastroen terology-Rosendo [address] Work Phone: Comment on above: Reference Range: 0.0 0 - 0.70 Complete Blood Count + Differential 1.23 {x10E9/L} above high threshold See Below MG-Gastroen [facility]-[address] Work Phone: Comment on above: Reference Range: 0.1 0 - 1.00 Complete Blood Count + Differential 2.89 {x10E9/L} See Below MG-Gastroen terology-[address] Work Phone: Comment on above: Reference Range: 1.2 0 - 4.80 Complete Blood Count + Differential 17.16 {x10E9/L} above high threshold See Below -Gastroen terology-Rosendo [facility] 6 [facility] Work Phone: Comment on above: Reference [...] connectors. Objective Data: Objective Information: T PRBPSpO2 Value36.79776238/8596% Date/Time09/18 17: 17: 17: 17: 17:40 Range(36.4C - 37C ) (71 - 85 ) (11 - 17 ) (84 - 117 )/ (43 - 85 ) (90% - 100% ) As of 18-Sep-2021 17:40:00, patient is on 4 L/min of oxygen via nasal cannula. Highest temp of 37 C was recorded at 09/18 0:00 Pain reported at 09/18 17:40: unable to assess; pt nly groans when asked about pain ---- Intake and Output ----- Mn/Dy/Year TimeIntakeOutputNet Sep 17, 2021 10:00 [id number] The Intake and Output Totals for the last 24 hours are: IntakeOutputNet [id number] Physical Exam by System: Neurological: A&Ox3 RUE D5, B5, T5, HG5, IO5 LUE D4+, B4+, T4+, HG4+, IO5 RLE HF 4+, KE4+, PF5, DF5 (pain limited) LLE HF 4-, KE4-, PF4, DF5 Recent Lab Results: Results: Recent Arterial Blood Gas Results 09/18/2021 11:48 [id number] 24 h range: ( 219 - 224 ) pH7.44 24 h range: ( 7.44 - 7.45 ) [id number] 24 h range: ( 37 - 40 ) WT9097 24 h range: ( 100 - 100 ) Base Excess2.8 24 h range: ( 1.8 - 2.8 ) Dmfjwngkogk32.2 24 h range: ( 25.7 - 27.2 [...] the note. I personally evaluated the patient [id number] Comments/ Additional Findings Patients postoperative CT scan [...] Assessment an (more content not included)... Normal [facility] Laboratory - Coagulationon 0 09-19-2021 aPTT Coag (PPP) [Time] 29 s 26 - 39 [facility]astroen [facility]ology-[place] 6 [facility] Work Phone: Comment on above: Note new reference r ishmael as of 08/04/2021 at 10:00am. INR Coag (PPP) [Relative time] 1.0 {INR} 0.9 - 1.1 MG-Gastroen terology-[place] [place] 6 I Work Phone: PT Coag (PPP) [Time] 11.5 s 9.8 - 13.4 MG-G astroen terology-[place] 6 [facility] Work Phone: Comment on above: Note new reference r ishmael as of 08/04/2021 at 10:00am. MAGNESIUMon 09-19-2021 Magnesium [Mass/Vol] 1.59 mg/dL Low 1.60 - 2.40 [facility] Comment on above: Performed By: #### R ENAL #### [facility] [address] [place] [address] PT Evaluation v2-attemptedon 09-19-2021 PT Evaluation v2-attempted Rehab: Info: Mode of Treatmentattempted Time IN11:37 Time OUT11:50 Total Treatment [id number] Evaluation Not PerformedHistory obtained, BP assessed in supine 79/54mmHg, RN notified and redone with 71/51mmHg, will hold PT eval at this time and reattempt as medically appropriate Electronic Signatures: Kaykay Yoo (PT) (Signed 19-Sep-2021 12:14) Authored: Info Last Updated: 19-Sep-2021 12:14 by Kaykay Yoo (PT) Normal [facility] RENAL FUNCTION PANELon 09-19 Albumin [Mass/Vol] 3.4 g/dL Normal 3.4 - 5.0 [facility] Comment on above: Performed By: #### A FPA3 #### [facility] [address] [place] [address] Anion gap [Moles/Vol] 18 mmol/L Normal 10 - 20 [facility] Comment on above: Performed By: #### A FPA3 #### [facility] [address] [place] [address] Calcium [Mass/Vol] 8.3 mg/dL Low 8.6 - 10.6 [facility] Comment on above: Performed By: #### A FPA3 #### [facility] [address] [place] [address] Chloride [Moles/Vol] 100 mmol/L Normal 98 - 107 [facility] Comment on above: Performed By: #### A FPA3 #### [facility] [address] [place] [address] Creatinine [Mass/Vol] 0.60 mg/dL Normal 0.50 - 1.05 [facility] Comment on above: Performed By: #### A FPA3 #### [facility] [address] [place] [address] eGFR FEMALE >90 Normal >90 [facility] Comment on above: Result Comment: CALC ULATIONS OF ESTIMATED GFR ARE PERFORMED USING THE 2020 CKD-EPI STUDY REFIT EQUATION WITHOUT THE RACE VARIABLE FOR THE IDMS-TRACEABLE CREATININE METHODS. https://jasn.asnjournals.org/content//ASN.[email or web address] 988 Performed By: #### A FPA3 #### [facility] [id number] [place] [address] Glucose [Mass/Vol] 82 mg/dL Normal 74 - 99 [facility] Comment on above: Performed By: #### A FPA3 #### [facility] [address] [place] [address] HCO3 (Bld) [Moles/Vol] 26 mmol/L Normal 21 - 32 [facility] Comment on above: Performed By: #### A FPA3 #### [facility] [address] [place] [address] Phosphate [Mass/Vol] 2.8 mg/dL Normal 2.5 - 4.9 [facility] Comment on above: Result Comment: The performance characteristics of phosphorus testing in heparinized plasma have been validated by the individual laboratory site where testing is performed. Testing on heparinized plasma is not approved by the FDA; however, such approval is not necessary. Performed By: #### A FPA3 #### [facility] [address] [place] [address] Potassium [Moles/Vol] 4.5 mmol/L Normal 3.5 - 5.3 [facility] Comment on above: Performed By: #### A FPA3 #### [facility] [address] [place] [address] Sodium [Moles/Vol] 139 mmol/L Normal 136 - 145 [facility] Comment on above: Performed By: #### A FPA3 #### [facility] [address] [place] [address] Urea nitrogen [Mass/Vol] 9 mg/dL Normal 6 - 23 [facility] Comment on above: Performed By: #### A FPA3 #### [facility] [address] [place] [address] Albumin [Mass/Vol] 3.6 g/dL Normal 3.4 - 5.0 [facility] Comment on above: Performed By: #### R ENAL #### [facility] [address] [place] [address] Anion gap [Moles/Vol] 13 mmol/L Normal 10 - 20 [facility] Comment on above: Performed By: #### R ENAL #### [facility] [address] [place] [address] Calcium [Mass/Vol] 8.9 mg/dL Normal 8.6 - 10.6 [facility] Comment on above: Performed By: #### R ENAL #### [facility] [address] [place] [address] Chloride [Moles/Vol] 100 mmol/L Normal 98 - 107 [facility] Comment on above: Performed By: #### R ENAL #### [facility] [address] [place] [address] Creatinine [Mass/Vol] 0.51 mg/dL Normal 0.50 - 1.05 [facility] Comment on above: Performed By: #### R ENAL #### [facility] [address] [place] [address] eGFR FEMALE >90 Normal >90 [facility] Comment on above: Result Comment: CALC ULATIONS OF ESTIMATED GFR ARE PERFORMED USING THE 2020 CKD-EPI STUDY REFIT EQUATION WITHOUT THE RACE VARIABLE FOR THE IDMS-TRACEABLE CREATININE METHODS. https://jasn.asnjournals.org/content//ASN.1276706 988 Performed By: #### R ENAL #### [facility] [address] [place] [address] Glucose [Mass/Vol] 123 mg/dL High 74 - 99 [facility] Comment on above: Performed By: #### R ENAL #### [facility] [address] [place] [address] HCO3 (Bld) [Moles/Vol] 28 mmol/L Normal 21 - 32 [facility] Comment on above: Performed By: #### R ENAL #### [facility] [address] [place] [address] Phosphate [Mass/Vol] 2.8 mg/dL Normal 2.5 - 4.9 [facility] Comment on above: Result Comment: The performance characteristics of phosphorus testing in heparinized plasma have been validated by the individual laboratory site where testing is performed. Testing on heparinized plasma is not approved by the FDA; however, such approval is not necessary. Performed By: #### R ENAL #### [facility] [address] [place] [address] Potassium [Moles/Vol] 4.3 mmol/L Normal 3.5 - 5.3 [facility] Comment on above: Performed By: #### R ENAL #### [facility] [address] [place] [address] Sodium [Moles/Vol] 137 mmol/L Normal 136 - 145 [facility] Comment on above: Performed By: #### R ENAL #### [facility] [address] [place] [address] Urea nitrogen [Mass/Vol] 8 mg/dL Normal 6 - 23 [facility] Comment on above: Performed By: #### R ENAL #### [facility] [address] [place] [address] Renal Function Panelon 09-19 Albumin BCP dye [...] - 4.9 MG-G astroen terology-Rosendo lwell 6 [facility] Work Phone: Comment on above: The [...] - 145 MG-Gas troen terology-Rosendo lwell 6 [facility] Work Phone: Urea nitrogen [Mass/Vol] 9 mg/dL 6 - 23 MG-Gastroen terology-Rosendo lwell 6 [facility] Work Phone: Renal Function Panel >90 >90 MG-G astroen terology-Rosendo lwell 6 [facility] Work Phone: Comment on above: CALCULATIONS OF IVY MATED GFR ARE PERFORMED USING THE 2020 CKD-EPI STUDY REFIT EQUATION WITHOUT THE RACE VARIABLE FOR THE IDMS-TRACEABLE CREATININE METHODS.https://jasn.asnjournals.org/content//ASN .7519478221 ANTIBODY IDENT.on 09-18-2021 ANTIBODY IDENT. Anti-E Normal [facility] Comment on above: Performed By: #### A FPA3 #### [facility] [address] [place] [address] ARTERIAL FULL PANELon 2021 Anion gap [Moles/Vol] 5 mmol/L Low 10 - 25 [facility] Comment on above: Performed By: #### A FPA3 ####[id number] [place] [address] BASE EXCESS-BLOOD 2.8 mmol/L Normal -2.0 - 3.0 [facility] Comment on above: Performed By: #### A FPA3 ####[id number] [place] [address] BICARB, CALCULATED 27.2 mmol/L High 22.0 - 26.0 [facility] Comment on above: Performed By: #### A FPA3 ####[id number] [place] [address] CALCIUM,IONIZED 1.20 mmol/L Normal 1.10 - 1.33 [facility] Comment on above: Performed By: #### A FPA3 ####[id number] [place] [address] Chloride [Moles/Vol] 106 mmol/L Normal 98 - 107 [facility] Comment on above: Performed By: #### A FPA3 ####[id number] [place] [address] Glucose [Mass/Vol] 149 mg/dL High 74 - 99 [facility] Comment on above: Performed By: #### A FPA3 ####[id number] [place] [address] Hematocrit (Bld) [Volume fraction] 38.0 % Normal 36.0 - 46.0 [facility] Comment on above: Performed By: #### A FPA3 ####[id number] [place] [address] HGB,CALCULATED 12.9 g/dL Normal 12.0 - 16.0 [facility] Comment on above: Performed By: #### A FPA3 ####[id number] [place] [address] Lactate [Moles/Vol] 0.9 mmol/L Normal 0.4 - 2.0 [facility] Comment on above: Performed By: #### A FPA3 ####[id number] [place] [address] Oxygen (Bld) [Partial pressure] 219 mm[Hg] High 85 - 95 [facility] Comment on above: Performed By: #### A FPA3 ####[id number] [place] [address] PATIENT TEMPERATURE 37.0 degrees C Normal [facility] Comment on above: Result Comment: NOTE : PATIENT RESULTS ARE NOT CORRECTED FOR TEMPERATURE. Performed By: #### A FPA3 ####[id number] [place] [address] PCO2 40 mmHg Normal 38 - 42 [facility] Comment on above: Performed By: #### A FPA3 ####[id number] [place] [address] pH (Bld) 7.44 [pH] High 7.38 - 7.42 [facility] Comment on above: Performed By: #### A FPA3 ####[id number] [place] [address] Potassium [Moles/Vol] 4.4 mmol/L Normal 3.5 - 5.3 [facility] Comment on above: Performed By: #### A FPA3 ####[id number] [place] [address] SO2 100 % Normal 94 - 100 [facility] Comment on above: Performed By: #### A FPA3 ####[id number] [place] [address] Sodium [Moles/Vol] 134 mmol/L Low 136 - 145 [facility] Comment on above: Performed By: #### A FPA3 ####[id number] [place] [address] Anion gap [Moles/Vol] 7 mmol/L Low 10 - 25 [facility] Comment on above: Performed By: #### A FPA3 #### [facility] [address] [place] [address] BASE EXCESS-BLOOD 1.8 mmol/L Normal -2.0 - 3.0 [facility] Comment on above: Performed By: #### A FPA3 #### [facility] [address] [place] [address] BICARB, CALCULATED 25.7 mmol/L Normal 22.0 - 26.0 [facility] Comment on above: Performed By: #### A FPA3 #### [facility] [address] [place] [address] CALCIUM,IONIZED 1.20 mmol/L Normal 1.10 - 1.33 [facility] Comment on above: Performed By: #### A FPA3 #### [facility] [address] [place] [address] Chloride [Moles/Vol] 105 mmol/L Normal 98 - 107 [facility] Comment on above: Performed By: #### A FPA3 #### [facility] [address] [place] [address] Glucose [Mass/Vol] 174 mg/dL High 74 - 99 [facility] Comment on above: Performed By: #### A FPA3 #### [facility] [address] [place] [address] Hematocrit (Bld) [Volume fraction] 37.0 % Normal 36.0 - 46.0 [facility] Comment on above: Performed By: #### A FPA3 #### [facility] [address] [place] [address] HGB,CALCULATED 12.6 g/dL Normal 12.0 - 16.0 [facility] Comment on above: Performed By: #### A FPA3 #### [facility] [address] [place] [address] Lactate [Moles/Vol] 1.1 mmol/L Normal 0.4 - 2.0 [facility] Comment on above: Performed By: #### A FPA3 #### [facility] [address] [place] [address] Oxygen (Bld) [Partial pressure] 224 mm[Hg] High 85 - 95 [facility] Comment on above: Performed By: #### A FPA3 #### [facility] [address] [place] [address] PATIENT TEMPERATURE 37.0 degrees C Normal [facility] Comment on above: Result Comment: NOTE : PATIENT RESULTS ARE NOT CORRECTED FOR TEMPERATURE. Performed By: #### A FPA3 #### [facility] [address] [place] [address] PCO2 37 mmHg Low 38 - 42 [facility] Comment on above: Performed By: #### A FPA3 #### [facility] [address] [place] [address] pH (Bld) 7.45 [pH] High 7.38 - 7.42 [facility] Comment on above: Performed By: #### A FPA3 #### [facility] [address] [place] [address] Potassium [Moles/Vol] 3.9 mmol/L Normal 3.5 - 5.3 [facility] Comment on above: Performed By: #### A FPA3 #### [facility] [address] [place] [address] SO2 100 % Normal 94 - 100 [facility] Comment on above: Performed By: #### A FPA3 #### [facility] [address] [place] [address] Sodium [Moles/Vol] 134 mmol/L Low 136 - 145 [facility] Comment on above: Performed By: #### A FPA3 #### [facility] [address] [place] [address] CT L Spine without Contrasto n 09-18-2021 [...] connectors. Objective Data: Objective Information: T PRBPSpO2 [id number]/4391% Date/Time09/18 6:041 5: 5: 5: 5:56 Range(37C [...] Recent Arterial Blood Gas Results 09/18/2021 11:48 [id number] 24 h range: ( 219 - 224 ) pH7.44 24 h range: ( 7.44 - 7.45 ) [id number] 24 h range: ( 37 - 40 ) [id number] 24 h range: ( 100 - 100 ) Base Excess2.8 24 h range: ( 1.8 - 2.8 ) Leffgvslpqp30.2 24 h range: ( 25.7 - 27.2 ) Assessment and Plan: Code Status: Code StatusFull Code Electronic Signatures: Bryan Mora) (Signed 18-Sep-2021 14:47) Authored: Service, Subjective Data, Objective Data, Assessment and Plan, Note Completion Last Updated: 18-Sep-2021 14:47 by Bryan Mora) [facility] Daily Progress Note-Neurosjudy leonidasgaurang 09-18-2021 Daily Progress Note-Neurosurgery Service: Neurosurgery Subjective Data: MORALES LEE is a 46 year old Female who is Hospital Day # 4. Objective Data: Objective Information: T PRBPSpO2 [id number]/4391% Date/Time09/18 6:041 5:561 5:561/ 5:561 5:56 Range(36.6C - 37C ) (71 - [...] ----- Mn/Dy/Year TimeIntakeOutputNet Sep 17, 2021 10:00 [id number] Sep 17, 2021 2:00 [id number] The Intake and Output Totals for the [...] the note. I personally evaluated the patient [id number] Electronic Signatures: Fidel Maciel (Resident)) (Signed 18-Sep-2021 06:55) Authored: Service, Subjective Data, Objective Data, Assessment and Plan, Note Completion Lex Frederick) (Signed 19-Sep-2021 10:18) Authored: Note Completion Co-Signer: Service, Subjective Data, Objective Data, Assessment and Plan, Note Completion Last Updated: 19-Sep-2021 10:18 by Lex Frederick) [facility] Laboratory - Chemistry and C [...] [facility] Work Phone: Anion gap (Bld) [Moles/Vol] 7 [...] lwell 6 [facility] Work Phone: Glucose [Mass/Vol] 174 mg/dL above [...] 6 [facility] Work Phone: Platelets (Bld) [#/Vol] 326 10*3/uL 150 - 450 MG-Gastroen terology-Rosendo lwell 6 [facility] Work Phone: RBC (Bld) [#/Vol] 4.51 {x10E12/L} [...] below low threshold See Below MG-Gastroen terology-Rosendo moura 6 [facility] Work Phone: Comment on above: Reference Range: 1.6 0 - 2.[address] L-SPINE WO CONTRASTon 09-18-[address] L-SPINE WO CONTRAST Patient Name: MORALES LEE STUDY: CT L-SPINE WO CONTRAST 09/18/2021 7:32 pm INDICATION: difficulty dorsiflex bilaterally, Lie Flat: Yes COMPARISON: CT of the lumbar spine dated 10/07/2020. MRI dated 12/11/2020 ACCESSION NUMBER(S): [id number] ORDERING CLINICIAN: ANGELO JUAREZ TECHNIQUE: Thin cut [...] as stated. This study was interpreted at [facility], [place], [place]. Electronically signed by: BOONE LAO MD Normal [facility] No Panel Informationon 09-18 0.0 {/100_WBC} [...] Respiratory Rate15 breath per minute Blood Pressure Xrdrdlhx85 mm/Hg Blood Pressure Wncpwrjew88 mm/Hg COVID 19 Results in Last 7 [...] 18-Sep-2021 06:59 by Lian Zuleta (SANAZ) Normal [facility] Radiologyon 09-18-2021 XR Chest Single view [...] mg/dL See Below MG-Gastroen terology-Rosendo lwell 6 [facility] Work Phone: Comment on above: Reference Range: 0.5 0 - 1.05 Glucose [Mass/Vol] 123 mg/dL above high threshold 74 - 99 MG-Gastroen terology-Rosendo lwell 6 I Work Phone: Phosphate [Mass/Vol] 2.8 mg/dL 2.5 - 4.9 MG-G astroen terology-Rosendo lwell 6 [facility] Work Phone: Comment on above: The [...] Renal Function Panel >90 >90 MG-G tiffany moura 6 [facility] Work Phone: Comment on above: CALCULATIONS OF IVY MATED GFR ARE PERFORMED USING THE 2020 CKD-EPI STUDY REFIT EQUATION WITHOUT THE RACE VARIABLE FOR THE IDMS-TRACEABLE CREATININE METHODS.https://jasn.asnjournals.org/content//ASN .[id number] TH CHEST; 1 VIEWon 2 TH CHEST; 1 VIEW Patient Name: MORALES LEE STUDY: CHEST; 1 VIEW; 09/18/2021 2:38 pm INDICATION: s/p central line placement (right IJ double lumen) . COMPARISON: Radiograph dated 09/15/2021 ACCESSION NUMBER(S): [id number] ORDERING CLINICIAN: BRYAN MORA FINDINGS: Right IJ [...] Electronically signed by: LORELEI JOHNSTON MD Normal [facility] VENOUS FULL PANELon 09-18-19 22 Anion gap [Moles/Vol] 6 mmol/L Low 10 - 25 [facility] Comment on above: Performed By: #### V FPA3 #### [facility] [address] [place] [address] BASE EXCESS-BLOOD 3.9 mmol/L High -2.0 - 3.0 [facility] Comment on above: Performed By: #### V FPA3 #### [facility] [address] [place] [address] BICARB, CALCULATED 28.5 mmol/L High 22.0 - 26.0 [facility] Comment on above: Performed By: #### V FPA3 #### [facility] [address] [place] [address] CALCIUM,IONIZED 1.17 mmol/L Normal 1.10 - 1.33 [facility] Comment on above: Performed By: #### V FPA3 #### [facility] [address] [place] [address] Chloride [Moles/Vol] 103 mmol/L Normal 98 - 107 [facility] Comment on above: Performed By: #### V FPA3 #### [facility] [address] [place] [address] Glucose [Mass/Vol] 188 mg/dL High 74 - 99 [facility] Comment on above: Performed By: #### V FPA3 #### [facility] [address] [place] [address] Hematocrit (Bld) [Volume fraction] 39.0 % Normal 36.0 - 46.0 [facility] Comment on above: Performed By: #### V FPA3 #### [facility] [address] [place] [address] HGB,CALCULATED 13.3 g/dL Normal 12.0 - 16.0 [facility] Comment on above: Performed By: #### V FPA3 #### [facility] [address] [place] [address] Lactate [Moles/Vol] 1.2 mmol/L Normal 0.4 - 2.0 [facility] Comment on above: Performed By: #### V FPA3 #### [facility] [address] [place] [address] Oxygen (Bld) [Partial pressure] 56 mm[Hg] High 35 - 45 [facility] Comment on above: Performed By: #### V FPA3 #### [facility] [address] [place] [address] PATIENT TEMPERATURE 37.0 degrees C Normal [facility] Comment on above: Result Comment: NOTE : PATIENT RESULTS ARE NOT CORRECTED FOR TEMPERATURE. Performed By: #### V FPA3 #### [facility] [address] [place] [address] PCO2 42 mmHg Normal 41 - 51 [facility] Comment on above: Performed By: #### V FPA3 #### [facility] [address] [place] [address] pH (Bld) 7.44 [pH] High 7.33 - 7.43 [facility] Comment on above: Performed By: #### V FPA3 #### [facility] [address] [place] [address] Potassium [Moles/Vol] 4.1 mmol/L Normal 3.5 - 5.3 [facility] Comment on above: Performed By: #### V FPA3 #### [facility] [address] [place] [address] SO2 91 % High 45 - 75 [facility] Comment on above: Performed By: #### V FPA3 #### [facility] [address] [place] [address] Sodium [Moles/Vol] 133 mmol/L Low 136 - 145 [facility] Comment on above: Performed By: #### V FPA3 #### [facility] [address] [place] [address] CORONAVIRUS 2019, SCREEN ASY MPTOMATICon 09-17-2021 SARS-CoV-2 (COVID-19) RNA ADRIÁN+probe Ql (Unsp spec) Not detected Normal Not Detected [facility] Comment on above: Result Comment: . This test has received FDA Emergency Use Authorization (EUA) and has been verified by [facility] ([facility]). This test is only authorized for the duration of time that circumstances exist to justify the authorization of the emergency use of in vitro diagnostic tests for the detection of SARS-CoV-2 virus and/or diagnosis of COVID-19 infection under section 564(b)(1) of the Act, 21 U.S.C. 360bbb-3(b)(1), unless the authorization is terminated or revoked sooner. [facility] is certified under CLIA-88 as qualified to perform high complexity testing. Testing is performed in the [facility] located [place] [address] [place] [address]. SARS-CoV-2/Flu/RSV Multiplex Test: Fact sheet for providers: https://www.fda.gov/media/115300/download Fact sheet for patients: https://www.fda.gov/media/373927/download Performed By: #### C OVSC ####[id number] [facility] [place] [address] Lab Specimen Source Nasal, Nasopharyngeal Normal [facility] Comment on above: Performed By: #### C OVSC ####[id number] [facility] [place] [address] Coronavirus 2019 RNA by PCR, Screening Asymptomticon 09-17-2021 Coronavirus 2019 RNA by PCR, Screening Asymptomtic Not detected Normal See Below -Gastroen terology-Rosendo gretaell 6 [facility] Work Phone: Comment on above: SOURCE: Nasal, Nasop haryngealReference Range: Not Detected.This test has received FDA Emergency Use Authorization (EUA) and has been verified by [facility] ([facility]). This test is only authorized for the duration of time that circumstances exist to justify the authorization of the emergency use of in vitro diagnostic tests for the detection of SARS-CoV-2 virus and/or diagnosis of COVID-19 infection under section 564(b)(1) of the Act, 21 U.S.C. 360bbb-3(b)(1), unless the authorization is terminated or revoked sooner. [facility] is certified under CLIA-88 as qualified to perform high complexity testing. Testing is performed in the [facility] located at [address] [place] [address].SARS-CoV-2/Flu/RSV Multiplex Test: Fact sheet for providers: https://www.fda.gov/media/876519/downloadFact sheet for patients: https://www.fda.gov/media/625437/download Covid 19 Resultson 2 SARS-CoV-2 (COVID-19) RNA [...] You may also be contacted by the [facility] to see if any of your [...] or Naproxen (Aleve) can also be used. Smsn-pvn-asluzgk cough and cold medicines can be used according to the instructions on the package. Some dpdp-tid-cvccwup medicines also contain acetaminophen. Make sure you [...] water are not available, use alcohol-based hand sales account specialist. Avoid touching your eyes, nose, and mouth [...] 24 mariella (more content not included)... 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 Objective: Objective Information: T PRBPSpO2 Value36.38170825/9095% Date/Time09/17 4: 10: 10:: 10:00 Range(35.7C - 36.6C ) (81 - 89 ) (10 - 23 ) (73 - 117 )/ (43 - 90 ) (91% - 96% ) As of 17-Sep-2021 08:00:00, patient is on 3 L/min of oxygen via nasal cannula. Pain reported at 09/17 8:00: 8 = Severe ---- Intake and Output ----- Mn/Dy/Year TimeIntakeOutputNet Sep 17, 2021 6:00 [id number] Sep 16, 2021 2:00 [id number] The Intake and Output Totals for the last 24 hours are: IntakeOutputNet [id number] Mental Status Exam: General: Awake, lying in [...] a Da (more content not included)... Normal [facility] Daily Progress Note-Nuha stearns 09-17-2021 Daily Progress Note-Neurosurgery Service: Neurosurgery Subjective Data: MORALES LEE is a 46 year old Female who is Hospital Day # 3. Objective Data: Objective Information: T PRBPSpO2 Value35.4556897/4393% Date/Time09/16 18: 18:5409/16 18:5409/16 18:5409/16 18:54 Range(35.7C - 36.4C ) (81 - 91 ) (15 - 24 ) (87 - 118 )/ (43 - 84 ) (91% - 96% ) As of 16-Sep-2021 18:54:00, patient is on 2 L/min of oxygen via nasal cannula. Pain reported at 09/16 16:34: 10 = Severe ---- Intake and Output ----- Mn/Dy/Year TimeIntakeOutputNet Sep 16, 2021 2:00 [id number] Physical Exam by System: Neurological: A&Ox3 RUE [...] the note. I personally evaluated the patient [id number] Comments/ Additional Findings I again explained to [...] Updated: 19-Sep-2021 10:16 by Lex Frederick) Normal [facility] HCG,URINEon 09-17-2021 Beta HCG ( test) Ql (U) Negative Normal Negative [facility] Comment on above: Performed By: #### A A3 #### [facility] [address] [place] [address] Laboratory - Blood bankon ABO group Nom (Bld) O MG-Ga stroen terology-Rosendo [facility] 6 [facility] Work Phone: Blood group antibody investigation (P/RBC) [Interp] Anti-E [facility] Work Phone: Blood group antibody screen Ql Positive MG-Gastroen terology-Rosendo [address] Work Phone: Rh immune globulin screen (Bld) [...] 09-17-2021 REQUEST-LEUKOREDUCED RED CELLS ORDER RECD Normal [facility] Comment on above: Performed By: #### O [employer] TEACHING GRADES 7 AND 8 TEACHER #### [facility] [address] [place] [address] TYPE + SCREENon 09-17-2021 ABO TYPE O Normal [facility] Comment on above: Performed By: #### T +S #### [facility] [address] [place] [address] RH TYPE Positive Normal [facility] Comment on above: Performed By: #### T +S #### [facility] [address] [place] [address] Urine Teston 09-17 HCG ( test) Ql (U) Negative Negative MG-Gastroen terology-Rosendo lwell 6 I Work Phone: BNPon 09-16-2021 Natriuretic peptide B (Bld) [Mass/Vol] 37 pg/mL Normal 0 - 99 [facility] Comment on above: Result Comment: . [...] information. Performed By: #### A FPA3 #### [facility] [address] [place] [address] CBC AND DIFFERENTIALon 09-16 % AUTOMATED IMMATURE GRAN 0.5 % Normal 0.0 - 0.9 [facility] Comment on above: Result Comment: Jaleesa ture Granulocyte Count (IG) includes promyelocytes, myelocytes and metamyelocytes but does not include bands. Percent differential counts (%) should be interpreted in the context of the absolute cell counts (cells/L). Performed By: #### C BCDF ####[id number] [place] [address] Basophils (Bld) [#/Vol] 0.04 10*3/uL Normal 0.00 - 0.10 [facility] Comment on above: Performed By: #### C BCDF ####[id number] [place] [address] Basophils/100 WBC (Bld) 0.5 % Normal 0.0 - 2.0 [facility] Comment on above: Performed By: #### C BCDF ####[id number] [place] [address] Eosinophils (Bld) [#/Vol] 0.26 10*3/uL Normal 0.00 - 0.70 [facility] Comment on above: Performed By: #### C BCDF ####[id number] [place] [address] Eosinophils/100 WBC (Bld) 3.0 % Normal 0.0 - 6.0 [facility] Comment on above: Performed By: #### C BCDF ####[id number] [place] [address] Erythrocyte distribution width (RBC) [Ratio] 13.0 % Normal 11.5 - 14.5 [facility] Comment on above: Performed By: #### C BCDF ####[id number] [place] [address] Hematocrit (Bld) [Volume fraction] 42.7 % Normal 36.0 - 46.0 [facility] Comment on above: Performed By: #### C BCDF ####[id number] [place] [address] Hemoglobin (Bld) [Mass/Vol] 14.1 g/dL Normal 12.0 - 16.0 [facility] Comment on above: Performed By: #### C BCDF ####[id number] [place] [address] Lymphocytes (Bld) [#/Vol] 3.17 10*3/uL Normal 1.20 - 4.80 [facility] Comment on above: Performed By: #### C BCDF ####[id number] [place] [address] Lymphocytes/100 WBC (Bld) 37.2 % Normal 13.0 - 44.0 [facility] Comment on above: Performed By: #### C BCDF ####[id number] [place] [address] MCHC (RBC) [Mass/Vol] 33.0 g/dL Normal 32.0 - 36.0 [facility] Comment on above: Performed By: #### C BCDF ####[id number] [place] [address] MCV (RBC) [Entitic vol] 91 fL Normal 80 - 100 [facility] Comment on above: Performed By: #### C BCDF ####[id number] [place] [address] Monocytes (Bld) [#/Vol] 0.47 10*3/uL Normal 0.10 - 1.00 [facility] Comment on above: Performed By: #### C BCDF ####[id number] [place] [address] Monocytes/100 WBC (Bld) 5.5 % Normal 2.0 - 10.0 [facility] Comment on above: Performed By: #### C BCDF ####[id number] [place] [address] Neutrophils (Bld) [#/Vol] 4.55 10*3/uL Normal 1.20 - 7.70 [facility] Comment on above: Performed By: #### C BCDF ####[id number] [place] [address] Neutrophils/100 WBC (Bld) 53.3 % Normal 40.0 - 80.0 [facility] Comment on above: Performed By: #### C BCDF ####[id number] [place] [address] NUCLEATED RBC 0.0 /100 WBC Normal 0.0-0.0 [facility] Comment on above: Performed By: #### C BCDF ####[id number] [place] [address] Platelets (Bld) [#/Vol] 278 10*3/uL Normal 150 - 450 [facility] Comment on above: Performed By: #### C BCDF ####[id number] [place] [address] RBC 4.70 x10E12/L Normal 4.00 - 5.20 [facility] Comment on above: Performed By: #### C BCDF ####[id number] [place] [address] WBC (Bld) [#/Vol] 8.5 10*3/uL Normal 4.4 - 11.3 [facility] Comment on above: Performed By: #### C BCDF ####[id number] [place] [address] COAGULATION SCREENon 022 aPTT Coag (Bld) [Time] 31 s Normal 26 - 39 [facility] Comment on above: Result Comment: Note new reference range as of 08/04/2021 at 10:00am. Performed By: #### V FPA3 #### [facility] [address] [place] [address] PT Coag (PPP) [Time] 11.6 s Normal 9.8 - 13.4 [facility] Comment on above: Result Comment: Note new reference range as of 08/04/2021 at 10:00am. Performed By: #### V FPA3 #### [facility] [address] [place] [address] PT, INR 1.0 Normal 0.9 - 1.1 [facility] Comment on above: Performed By: #### V FPA3 #### [facility] [address] [place] [address] Clinical Event Note-ADMISSIO N CLARIFICATIONon 09-16-2021 Clinical [...] and monitoring for withdrawal. Provider/Team Contact Info-Pager [phone] Electronic Signatures: Sharmin Guaman ([employer]AM [employer]) (Signed 16-Sep-2021 12:07) Authored: Clinical Event Note Last Updated: 16-Sep-2021 12:07 by Sharmin Guaman ([employer] ALTERATION TAILOR-FOAM CASTER) Normal [facility] Complete Blood Count + Diffe rentialon [...] 10*3/uL 4.4 - 11.3 MG-Gas troen terology-[facility] 6 [facility] Work Phone: Complete Blood Count + Differential 0.04 {x10E9/L} See Below [facility]-Gastroen terology-[facility] 6 [facility] Work Phone: Comment on above: Reference Range: 0.0 0 - 0.10 Complete Blood Count + Differential 0.26 {x10E9/L} See Below MG-Gastroen terology-[facility] 6 [facility] Work Phone: Comment on above: Reference Range: 0.0 0 - 0.70 Complete Blood Count + Differential 0.47 {x10E9/L} See Below MG-Gastroen terology-[facility] 6 [facility] Work Phone: Comment on above: Reference Range: 0.1 0 - 1.00 Complete Blood Count + Differential 3.17 {x10E9/L} See Below [facility]-Gastroen terology-[facility] 6 [facility] Work Phone: Comment on above: Reference Range: 1.2 0 - 4.80 Complete Blood Count + Differential 4.55 {x10E9/L} See Below MG-Gastroen terology-[facility] 6 [facility] Work Phone: Comment on above: Reference Range: 1.2 0 - 7.70 Complete Blood Count + Differential 3.0 % 0.0 - 6.0 [facility]-Gastroen terology-[facility] 6 [facility] Work Phone: Complete Blood Count + Differential 0.5 % 0.0 - 0.9 MG-Gastroen terology-[facility] 6 [facility] Work Phone: Comment on above: Immature Granulocyte Count (IG) includes promyelocytes, myelocytes and metamyelocytes but does not include bands. Percent differential counts (%) should be interpreted in the context of the absolute cell counts (cells/L). Complete Blood Count + Differential 0.0 {/100_WBC} 0.0-0.0 [facility]-Gastroen terology-[facility] 6 [facility] Work Phone: Consult-Painon 09-16-2021 Consult-Pain Service: Service: [...] the note. I personally evaluated the patient [id number] Electronic Signatures: Cihdi Lamar (Fellow)) (Signed 16-Sep-2021 08:54) Authored: History [...] From Consult - Psychiatry 15-Sep-2021 20:42 Normal [facility] Consult-Perioperative Medici neon 09-16-2021 Consult-Perioperativ e [...] penicillin: Unknown Objective: Objective Information: T PRBPSpO2 Value36.86334818/8491% Date/Time09/16 11:131 12:4909/16 12:4909/16 12:4909/16 12:49 Range(36.3C - 36.4C [...] 100 mg (more content not included)... Normal [facility] Cult, Urineon 09-16-2021 Bacteria identified Cx Nom (U) Abnormal MG-Gastroen terology-Rosendo moura 6 [facility] Work Phone: Daily Progress Note-Neurosur jinny 09-16-2021 Daily Progress Note-Neurosurgery Service: Neurosurgery Subjective Data: MORALES LEE is a 46 year old Female who is Hospital Day # 3. Objective Data: Objective Information: T PRBPSpO2 Value36.2570033/6693% Date/Time09/16 1:411 4: 4: 4: 4:00 Range(36.3C [...] the note. I personally evaluated the patient [id number] Comments/ Additional Findings TO OR this Tuesday if medically optimized for T12 - Pelvis fusion and Instrumentation. Pain consult for management regrading Suboxone and pain control in the perioperative period. US LE MRI of the lumbar spine., Lex Frederick MD, [facility], FAANS Director - Minimally Invasive Spine Surgery [facility] Operational Risk Consultant of Neurological Surgery [facility] [employer] [place], [place] Electronic Signatures: Fidel Maciel (Resident)) (Signed 16-Sep-2021 04:33) Authored: Service, Subjective Data, Objective Data, Assessment and Plan, Note Completion Lex Frederick) (Signed 16-Sep-2021 10:22) Authored: Note Completion Co-Signer: Service, Subjective Data, Objective Data, Assessment and Plan, Note Completion Last Updated: 16-Sep-2021 10:22 by Lex Frederick) Normal [facility] EMR ADDONon 09-16-2021 ADDON CONFIRMATION REQUEST REC'D Normal [facility] Comment on above: Performed By: [...] Comment on above: Note new reference esther ishmael as of 08/04/2021 at 10:00am. No Panel Informationon 09-16 37 pg/mL 0 - 99 [facility]-Gastroen terology-[facility] [place] 6 I Work Phone: Comment on above: . <100 pg/mL - Heart failure -182 pg/mL - Intermediate probability of acute heart. [...] [Mass/Vol] 3.5 g/dL Normal 3.4 - 5.0 [facility] Comment on above: Performed By: #### R ENAL #### [facility] [address] [place] [address] Anion gap [Moles/Vol] 14 mmol/L Normal 10 - 20 [facility] Comment on above: Performed By: #### R ENAL #### [facility] [address] [place] [address] Calcium [Mass/Vol] 8.9 mg/dL Normal 8.6 - 10.6 [facility] Comment on above: Performed By: #### R ENAL #### [facility] [address] [place] [address] Chloride [Moles/Vol] 101 mmol/L Normal 98 - 107 [facility] Comment on above: Performed By: #### R ENAL #### [facility] [address] [place] [address] Creatinine [Mass/Vol] 0.63 mg/dL Normal 0.50 - 1.05 [facility] Comment on above: Performed By: #### R ENAL #### [facility] [address] [place] [address] eGFR FEMALE >90 Normal >90 [facility] Comment on above: Result Comment: CALC ULATIONS OF ESTIMATED GFR ARE PERFORMED USING THE 2020 CKD-EPI STUDY REFIT EQUATION WITHOUT THE RACE VARIABLE FOR THE IDMS-TRACEABLE CREATININE METHODS. https://jasn.asnjournals.org/content/early//ASN.5177472 988 Performed By: #### R ENAL #### [facility] [address] [place] [address] Glucose [Mass/Vol] 88 mg/dL Normal 74 - 99 [facility] Comment on above: Performed By: #### R ENAL #### [facility] [address] [place] [address] HCO3 (Bld) [Moles/Vol] 29 mmol/L Normal 21 - 32 [facility] Comment on above: Performed By: #### R ENAL #### [facility] [address] [place] [address] Phosphate [Mass/Vol] 3.4 mg/dL Normal 2.5 - 4.9 [facility] Comment on above: Result Comment: The performance characteristics of phosphorus testing in heparinized plasma have been validated by the individual laboratory site where testing is performed. Testing on heparinized plasma is not approved by the FDA; however, such approval is not necessary. Performed By: #### R ENAL #### [facility] [address] [place] [address] Potassium [Moles/Vol] 3.7 mmol/L Normal 3.5 - 5.3 [facility] Comment on above: Performed By: #### R ENAL #### [facility] [address] [place] [address] Sodium [Moles/Vol] 140 mmol/L Normal 136 - 145 [facility] Comment on above: Performed By: #### R ENAL #### [facility] [address] [place] [address] Urea nitrogen [Mass/Vol] 10 mg/dL Normal 6 - 23 [facility] Comment on above: Performed By: #### R ENAL #### [facility] [address] [place] [address] Renal Function Panelon 09-16 Albumin BCP dye [...] RACE VARIABLE FOR THE IDMS-TRACEABLE CREATININE METHODS.https://jasn.asnjournals.org/content/early//ASN .8504920912 UA MICROSCOPICon 09-16-2021 BACTERIA 2+ /HPF Abnormal [facility] Comment on above: Performed By: #### U AMIC ####[id number] [place] [address] Mucus Ql (Urine sed) 1+ /LPF Normal [facility] Comment on above: Performed By: #### U AMIC ####[id number] [place] [address] RBC 3 /HPF Normal 0-5 [facility] Comment on above: Performed By: #### U AMIC ####[id number] [place] [address] SQUAMOUS EPITH. CELLS 2 /HPF Normal [facility] Comment on above: Performed By: #### U AMIC ####[id number] [place] [address] WBC 115 /HPF Abnormal 0-5 [facility] Comment on above: Performed By: #### U AMIC ####[id number] [place] [address] URINALYSISon 09-16-2021 Appearance (U) HAZY Normal CLEAR [facility] Comment on above: Performed By: #### U A ####[id number] [place] [address] Bilirubin Ql (U) Negative Normal NEGATIVE [facility] Comment on above: Performed By: #### U A ####[id number] [place] [address] Color (U) YELLOW Normal STRAW,YELLO W [facility] Comment on above: Performed By: #### U A ####[id number] [place] [address] Glucose Ql (U) Negative Normal NEGATIVE [facility] Comment on above: Performed By: #### U A ####[id number] [place] [address] Hemoglobin Ql (U) Negative Normal NEGATIVE [facility] Comment on above: Performed By: #### U A ####[id number] [place] [address] Ketones Ql (U) Negative Normal NEGATIVE [facility] Comment on above: Performed By: #### U A ####[id number] [place] [address] Leukocyte esterase Test strip Ql (U) LARGE (3+) Abnormal NEGATIVE [facility] Comment on above: Performed By: #### U A ####[id number] [place] [address] Nitrite Ql (U) Positive Abnormal NEGATIVE [facility] Comment on above: Performed By: #### U A ####[id number] [place] [address] pH (U) 6.0 [pH] Normal 5.0 - 8.0 [facility] Comment on above: Performed By: #### U A ####[id number] [place] [address] Protein Ql (U) Negative Normal NEGATIVE [facility] Comment on above: Performed By: #### U A ####[id number] [place] [address] Specific gravity (U) [Rel density] 1.011 Normal 1.005 - 1.035 [facility] Comment on above: Performed By: #### U A ####[id number] [place] [address] Urobilinogen (U) [Mass/Vol] 2.0 mg/dL High 0.0 - 1.9 [facility] Comment on above: Result Comment: Due [...] positive urobilinogen. Performed By: #### U A ####[id number] [place] [address] URINE CULTURE,BACTERIALon URINE CULTURE,BACTERIAL PATIENT: MORALES LEE LOCATION: [facility]#: [id number] : 71 AGE: SEX: F ORDERED BY: JOE BORJA SOURCE: URINE COLLECTED: 09/16/21 08:42 ANTIBIOTICS [...] DOSE DEPENDENT NS=NONSUSCEPTIBLE X=REPORTED IN ERROR Normal [facility] Comment on above: Performed By: #### A A3 #### [facility] [address] [place] [address] Urinalysison 09-16-2021 Color (U) YELLOW See Below [...] 1 See Below [facility]-Gastroen terology-[facility] [...] 09-16-2021 VASC LAB Venous Duplex Ultrasound DVT [place] [address] and Vascular Lab Report Lower Venous Duplex Ultrasound Patient Name: MORALES LEE Reading Physician: [id number] Arjun Romero MD, YOLIE Study Date: 09/16/2021 Referring Physician: [id number] RAGSDALE MRN/PID: [id number] PCP: Accession/Order#: [id number] CC Report to: Date of : 1975 Technologist: Isai Burleson RVT Gender: F Technologist 2: Admission Status: Outpatient Location Performed: [facility] Diagnosis/ICD: M79.89-Left leg swelling; M79.89-Right leg swelling Procedure/CPT: 52931 Peripheral venous duplex scan for DVT complete-84507 CONCLUSIONS: Right Lower Venous: No evidence of [...] Spontaneous/Phasic Peroneal Yes None PTV Yes None [id number] Arjun Romero MD, YOLIE Final Normal [facility] VAS LAB Venous Duplex Ultra sound for DVTon 09-16-2021 VASC LAB Venous Duplex Ultrasound for DVT [facility]-Gastroen terology-[facility] [place] 6 [facility] Work Phone: No Panel Informationon 09-15 [email or web address]?Ret rieveTestByDateTime?Patient UB=[id number]&Date= 2&Time=19%3a14%3a23%3a00&Te stType=ECG&Site=1&OutputTyp e=PDF&Ext=PDF [facility]-Gastroen terology-[facility] [place] [facility] Work Phone: [phone] Normal sinus rhythm MG-Ga stroen terology-[place] [place] 6 [facility] Work Phone: [phone] Abnormal [facility]-Gastroen terology-[place] [place] [facility] Work Phone: [phone] 1 [facility]-Gastroen terology-[place] [place] 6 [facility] Work Phone: [phone] 1 [facility]-Gastroen terology-[place] [place] 6 [facility] Work Phone: [phone] 1 [facility]-Gastroen terology-[place] 6 [facility] Work Phone: [phone] 1 [facility]-Gastroen terology-[place] [place] 6 [facility] Work Phone: [phone] 1 [facility]-Gastroen terology-[place] [place] [facility] Work Phone: [phone] 1 [facility]-Gastroen terology-[place] [facility] Work Phone: [phone] 1 [facility]-Gastroen terology-[place] [facility] Work Phone: [phone] 1 [facility]-Gastroen terology-[place] [place] Work Phone: [phone] 1 [facility]-Gastroen terology-[place] [facility] Work Phone: [phone] 1 [facility]-Gastroen terology-[place] [facility] Work Phone: [phone] 1 [facility]-Gastroen terology-[place] [facility] Work Phone: [phone] 1 [facility]-Gastroen terology-[place] [facility] Work Phone: [phone] 1 [facility]-Gastroen terology-[place] [place] [facility] Work Phone: [phone] [email or web address]?Ret rieveTestByDateTime?Patient SV=[id number]&Date= 2&Time=19%3a14%3a42%3a00&Te stType=ECG&Site=1&OutputTyp e=PDF&Ext=PDF [facility]-Gastroen terology-[place] [place] 6 [...] (Advanced Practice Nurse) done by Concetta Shi ([employer]TERATION TAILOR-FOAM CASTER) Admission - Reconciliation: 15-Sep-2021 19:03 by: Fidel Maciel (Resident)) Admission - Reset to Incomplete: 15-Sep-2021 21:47 by: Fidel Maciel (Resident)) Admission - Reconciliation: 15-Sep-2021 21:49 by: Fidel Maciel (Resident)) Admission - Reset to Incomplete: 16-Sep-2021 00:41 by: Fidel Maciel ( (Resident)) Admission - Reconciliation: 16-Sep-2021 00:42 by: Fidel Maciel ( (Resident)) Admission - Reset to Incomplete: 30-Sep-2021 14:18 by: Concetta Shi ([facility]) Admission - Reconciliation: 30-Sep-2021 14:20 by: Concetta Shi ([facility]) Home MedicationsEnteredLast Dose TakenReconciled with current Order Reconciliation Comment/ Additional Information acetaminophen 325 mg oral tablet 2 tab(s) orally every 6 hours, as needed while having post operative [id number] Reviewed and Held Ambien CR 12.5 mg oral tablet, extended release 1 tab(s) oral [id number] Zolpidem Tablet (AMBIEN)DOSE = 10 mg Oral At BedtimeNotes from Pharmacy: Substitution For Zolpidem (Ambien CR) 12.5 mg at Bedtime Ambien CR 12.5 mg oral tablet, extended release continued as the inpatient order Zolpidem Ankle Foot Orthosis for foot [id number]-0436 Reviewed and Held betamethasone topical valerate 0.1% topical cream 1 milena topical prn 15-Sep-2021 EnteredInError Reviewed and Held Bilateral Prafos - orthotics to fit, - ICD 10: R26.0, M21.37, M62.81 30-Sep-2021 Reviewed and Held calcium-vitamin D 500 mg-200 intl units (5 mcg) oral tablet 1 tab(s) orally 4 times a [id number] Calcium 500 mg - Vitamin D 200 [...] times a day, as needed for muscle [id number]-Djs-4525 Cyclobenzaprine Tablet (FLEXERIL)DOSE = 10 mg Oral [...] topical 1% topical gel 1 milena topical [id number]-Wmu-5693 Reviewed and Held DULoxetine 30 mg oral [...] 2 tab(s) orally once a day, As Edpykb14-Vwg-7684 Reviewed and Held gabapentin 800 mg oral tablet 1 tab(s) oral 3 times a dhz17-Sps-9096 Gabapentin Capsule (NEURONTIN)DOSE = 800 mg Oral 3 Times a Day gabapentin 800 mg oral tablet continued as the inpatient order Gabapentin LEFT AFO -Orthotics to fit, ICD 10: M21.4212-Uyy-0297 Reviewed and Held lidocaine 5% topical film Apply topically to affected area once a day, As Needed near surgical incision for incisional pain 15-Sep-2021 EnteredInError Reviewed and Held lisinopril 20 mg oral tablet 1 tab(s) oral once a [id number]-9821 Lisinopril Tablet (PRINIVIL, ZESTRIL)DOSE = 20 mg [...] patch TransDermal Every 24 HoursNotes from Pharmacy: RCRA nicotine 14 mg/24 hr transdermal film, extended [...] - available over the counter at any koajnsab64-Dng-5503 Reviewed and Held RIGHT AFO - Orthotics to fit, - M21.1349-Yog-6677 Reviewed and Held sennosides-docusate 8.6 mg-50 mg oral tablet 2 tab(s) orally 2 times a day , -Take while using oxycodone for post operative pain to prevent contipation 15-Sep-19 (more content not included)... Normal [facility] Radiologyon 09-15-2021 XR Chest Single view Normal MG-G astroen terology-Rosendo moura 6 [facility] Work Phone: TH CHEST 1 VIEWon 09-15-2021 TH CHEST 1 VIEW Patient Name: MORALES LEE STUDY: CHEST 1 VIEW; 09/15/2021 7:21 pm INDICATION: pre-op . COMPARISON: 12/26/2020. ACCESSION NUMBER(S): [id number] ORDERING CLINICIAN: JOE BORJA FINDINGS: CARDIOMEDIASTINAL SILHOUETTE: Cardiomediastinal silhouette is normal in size and configuration. LUNGS: Lungs are clear of focal airspace disease or edema. No pneumothorax ABDOMEN: Elevation right hemidiaphragm again noted. BONES: Patient status post cervical spine fusion. IMPRESSION: 1. No active airspace disease. Elevation of the right hemidiaphragm and correlate with any concern for diaphragmatic dysfunction. Electronically signed by: Esther PEDERSON MD Normal [facility] Established Visit (Neurosurg ariana)on 09-08-2021 Established [...] in the Neurosurgery Spine Clinic at the [facility]. She is a very pleasant 46-year-old female, [...] obvious instability (more content not included)... Normal [facility] No Panel Informationon 09-08 Normal MG-Neurosur Yanira [...] and T6-L4 Fusion. COMPARISON: None. ACCESSION NUMBER(S): [id number] ORDERING CLINICIAN: LEX FREDERICK FINDINGS: Fused PA [...] Electronically signed by: JOSEPH SALAZAR MD Normal [facility] Tobacco Screening.on 022 Fall risk assessment b) One or more fall s in the last year -uNha eliasMiguel Work Phone: Tobacco use status [facility]PH[facility] a) Yes [employer] Doyle Work Phone: Established Visit (Neurosurg ariana)on 05-05-2021 Established Visit (Neurosurgery) History of Present Illness I just had the pleasure of seeing Mrs. Lee back in the Neurosurgery Spine Clinic at the [facility]. She is a very pleasant 45 -year-old female, who recently underwent a L1 Vertbrectomy and T6-L4 Fusion with me on 12/26/2020 and is status post 4 Months out from her surgery. Today's visit was a virtual visit with the patient at her home and myself at [facility]. She mentions that overall she [...] in Ms. JESUS hollis. Lex Frederick MD, [facility], FAANS Director - Minimally Invasive Spine Surgery [facility] Operational Risk Consultant of Neurological Surgery [facility] [employer] [place], [place] Some of this note was completed using [employer] voice recognition technology and sometimes the software [...] in the Neurosurgery Spine Clinic at the [facility]. She is a very pleasant 45 -year-old female, who recently underwent a L1 Vertbrectomy and T6-L4 Fusion with mn on 12/26/2020 and is status post 2 [...] the further treatment plan. Lex Frederick MD, [facility], FAANS Director - Minimally Invasive Spine Surgery [facility] [employer] of Neurological Surgery [facility] [employer] [place], [place] Some of this note was completed using [employer] voice recognition technology and sometimes the software [...] Normal [facility] NR MRI T-SPINE WOon 12-25-19 21 NR MRI T-SPINE WO Patient Name: MORALES LEE STUDY: MRI T-SPINE WO; 12/24/2020 12:50 pm INDICATION: Lumbar Pain Scoliosis, unspecified Unspecified cord compression. COMPARISON: None. ACCESSION NUMBER(S): [id number] ORDERING CLINICIAN: LEX FREDERICK TECHNIQUE: Multiplanar and [...] spine. Electronically signed by: LENNY HAGER MD Normal [facility] NR MRI L-SPINE WOon 12-12-19 NR MRI L-SPINE WO Patient Name: MORALES LEE STUDY: MRI L-SPINE WO; ; 12/11/2020 1:38 pm INDICATION: Lumbar Pain Scoliosis, unspecified Low back pain. COMPARISON: CT lumbar spine from 10/07/2020. MRI lumbar spine from 03/11/2016. ACCESSION NUMBER(S): [id number] ORDERING CLINICIAN: LEX FREDERICK TECHNIQUE: MRI of [...] multiple levels. This study was interpreted at [facility]. Electronically signed by: WESLEY CARBAJAL MD [place] [...] Status:Resulted - Preliminary,Retrospective By Protocol Authorization; Done: [id number] 12:00AM Reason: Unspecified for Xray Spine, entire thoracic/lumbar, include skull, cervical and sacral spine when performed, 2 or 3 view Radiologist to Determine Optimal Study : Y What are the patient's signs and symptoms? : Lumbar Pain SocHx: Current smoker Tobacco Use Screening; Status:Complete; Done: 28Oct2020 Patient Discussion/Summary It was a pleasure to see Ms. LEE at the Neurosurgery Spine Clinic at [facility] Ms. LEE is a really nice 45 [...] and thoracic kyphosis few years back in [place]. She now has been having severe symptoms [...] evaluated by another spine surgeon at the [facility] who recommended urgent surgery for her on [...] the thoracic spine that was done in 2015 showed presence of a L1 compression fracture [...] even walk (more content not included)... [facility] CNPN Telephone (SPNMMN) MORALES LEE ([id number]) 1975 F Date Time Provider Department 07/10/19 DIXIE TEE [facility] During your visit today, we [...] Tee MD CC: Dr. Quan, Ms. Alonso Jacquie Dao RN 07/11/2019 4:42 PM Signed Neuro [...] Order(s):CONSULT TO ORTHOPAEDIC SURGERY [[id number]] Order #: [id number]: 1 Prescriptions as of 07/10/2019 Sig: LISINOPRIL [...] TEE MD on 07/10/[address] [facility] CNOVon 07-09-2019 CNOV Office Visit (SPNSMN ) MORALES LEE ([id number]) 1975 F Date Time Provider Department 07/09/19 9:30 AM STEVENSON QUAN SPNSMN During your visit today, we recorded the following information about you: Pulse Respiration Blood pressure Weight 89/minute 18/minute 124/74 95.8 kg Height 1.499 m Stevenson Quan MD 07/09/2019 2:56 PM Signed SPINE SURGERY OUTPATIENT CONSULT SERVICE DATE: 07/09/2019 PCP: No primary care provider on file. REFERRING PROVIDER: Dixie Tee MD [id number] Pending sale to [facility] [id number] Consult requested for an opinion regarding the [...] file Gets together: Not on file Attends mosque service: Not on file Active member of [...] with the patient or the patient?s personal sales representative leather goods. 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 OBSOLETEon 07-09-2019 OBSOLETE Procedure (EMGMN) MORALES LEE ([id number]) 1975 F Date Time Provider Department 07/09/19 [...] upper limb [G56.21] Order(s):EMG(NEURO/NI) [[id number]] Order #: [id number]: 1 Prescriptions as of 07/09/2019 Sig: LISINOPRIL [...] by JHON EASON MD on 07/09/19 Normal [facility] PROGRESSon 07-09-2019 PROGRESS HNO ID: [id number] Author: Stevenson Quan Service: ? Author Type: Physician Type: Progress Notes Filed: 07/09/2019 2:56 PM Note Text: SPINE SURGERY OUTPATIENT CONSULT SERVICE DATE: 07/09/2019 PCP: No primary care provider on file. REFERRING PROVIDER: Dixie Tee MD [id number] Pending sale to [facility] [id number] Consult requested for an opinion regarding the [...] methadone addiction with rehab, with seizure in 2010 related to medication withdrawal. C/o mid/low back [...] file Gets together: Not on file Attends mosque service: Not on file Active member of [...] with the patient or the patient?s personal sales representative leather goods. The patient has elected to schedule surgery at this time or intends to call the office with a surgical date. Shared decision making occurred while obtaining informed consent. 1. Imaging: Thoracic CT Without Contrast 2. Encouraged to call the office with any questions or concerns 3. Follow up: Following above Hannah Gupta APRN.FOAM CASTER I reviewed the information obtained and documented [...] 09, 2019 TIME: 10:24 AM PAGER: Normal [facility] OT-XR DEXA BONE DENSITY IMPO RTon 07-06-2019 OT-XR DEXA BONE DENSITY IMPORT Images were obtained outside of [facility] [id number] Normal [facility] CASE MGT INIT ASSESon 2018 CASE MGT INIT ASSES HNO ID: [id number] Author: Kimberly (Rn) MERA Dunaway Service: ? Author Type: Registered Nurse Type: Care Mgt Initial Assessment Filed: 06/20/2019 12:25 PM Note Text: CARE MANAGEMENT: ASSESSMENT AND DISCHARGE PLAN SERVICE DATE: 06/20/2019 SERVICE TIME: 12:21 PM PRIMARY CARE PHYSICIAN: No primary care provider on file. 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 No Advance Directive: Current Advance Directive: None Air Sealing Technician Attempted to Assist with AD Completion: Yes [...] None Has the Patient Been in a Long-Term Facility in the Past 30 days? N/A SOCIAL: Living Arrangement: Home Lives With: Spouse Financial Resources: Disabled Primary Contact: Extended Emergency Contact Information Primary Emergency Contact: Lars Lee [facility] [place], [place] [id number] [place] [address] Mobile Relation: Spouse Supportive: Yes Other Important [...] 0 I feel financially burdened by my xmp-im-vefrjx expenses for my prescription medication: Disagree completely [...] with . Does not utilize any DME, custodial or community resources. Has d/c transportation via . Anticipate transitional care plan of home, no skilled needs identified at this time. TCC will remain available to assist as needed with transition planning. SIGNATURE: Kimberly Dunaway RN PATIENT NAME: Morales Lee DATE: June 20, 2019 TIME: 12:21 PM PAGER/CONTACT #: [phone] Normal [facility] CBCon 06-20-2019 Erythrocyte distribution width (RBC) [Ratio] 12.6 % Normal 11.5-15.0 [facility] Comment on above: Performed By: #### C BC #### [facility] [address] [place] [address] Hematocrit (Bld) [Volume fraction] 48.7 % High 36.0-46.0 [facility] Comment on above: Performed By: #### C BC #### [facility] [address] [place] [address] Hemoglobin (Bld) [Mass/Vol] 16.8 g/dL High 11.5-15.5 [facility] Comment on above: Performed By: #### C BC #### [place] [address] MCH (RBC) [Entitic mass] 31.1 pG Normal 26.0-34.0 [facility] Comment on above: Performed By: #### C BC #### [place] [phone] MCHC (RBC) [Mass/Vol] 34.5 g/dL Normal 30.5-36.0 [facility] Comment on above: Performed By: #### C BC #### [place] [phone] MCV (RBC) [Entitic vol] 90.0 fL Normal 80.0-100.0 [facility] Comment on above: Performed By: #### C BC #### [place] [phone] Platelet mean volume (Bld) [Entitic vol] 10.6 fL Normal 9.0-12.7 [facility] Comment on above: Performed By: #### C BC #### [place] [phone] Platelets (Bld) [#/Vol] 334 10*3/uL Normal 150-400 [facility] Comment on above: Performed By: #### C BC #### [place] [address] RBC (Bld) [#/Vol] 5.41 10*6/uL High 3.90-5.20 [facility] Comment on above: Performed By: #### C BC #### [place] [address] WBC (Bld) [#/Vol] 10.85 10*3/uL Normal 3.70-11.00 [facility] Comment on above: Performed By: #### C BC #### [facility] [address] [place] [address] CONSULTon 06-20-2019 CONSULT HNO ID: [id number] Author: Evelyn Resendez Service: Pain Management Author [...] me to leave. She is now leaving [place]. 3. Will sign off SUBJECTIVE CHIEF COMPLAINT: [...] activity was identified. 06/20/2019 by Evelyn Resendez APRN.FOAM CASTER PAST MEDICAL HISTORY Diagnosis Date - Degenerative [...] file Gets together: Not on file Attends mosque service: Not on file Active member of [...] the Morales Lee's care. SIGNATURE: Evelyn Resendez APRN.FOAM CASTER PATIENT NAME: Morales Lee DATE: June 20, 2019 TIME: 8:24 AM PAGER/CONTACT #: [phone] (M-F [id number]) Normal [facility] CT BRAIN WO IVCONon 06-20-20 CT BRAIN WO IVCON * * *Final Report* * * DATE OF EXAM: Jun 20 2019 1:31AM [facility] 0504 - CT BRAIN WO IVCON [...] No large cortical infarct or acute hemorrhage. Clerical Clerk: ADITYA Transcribe Date/Time: Jun 20 2019 1:33A Dictated by : DAVONTE MOY MD This examination was interpreted and the report reviewed and electronically signed by: DAVONTE MOY MD on Jun 20 2019 1:35AM EST [id number] [facility] ECG COMPLETEon 06-20-2019 ECG COMPLETE NAME : MORALES LEE PID : [id number] : 1975 Gender : Female Race : ORD : [id number] Procedure Date : Jun 19 2019 23:57:03 Edit Date : Jun 20 2019 07:51:18 Diagnosis:Sinus rhythm Normal ECG no STEMI 1200a Confirmed by MD ARREDONDO LISA ([id number]), senior editor FOREST WALTON ([id number]) on 06/20/2019 7:51:18 AM Ventricular Rate : 85 BPM Atrial Rate : 85 BPM P-R Interval : 137 ms QRS Duration : 91 ms Q-T Interval : 365 ms QTC Calculation(Bazett) : 434 ms P Waymart : 51 degrees R Waymart : -13 degrees T Waymart : 61 degrees Test Reason : Chest Pain Location : 302 : ED AVED-1 Overread By : MD ARREDONDO LISA Edited By : FOREST WALTON Referred By : , Acquired by : [id number], [facility] ED NOTEon 06-20-2019 ED NOTE HNO ID: [id number] Author: Yuki (Rn) MERA Cruz Service: ? Author Type: Registered Nurse Type: ED Notes Filed: 06/20/2019 1:40 AM Note Text: Patient got CT, it is still pending and Jessie MESA said ok to transfer to [place] with out results pending. Patient agreeing and understanding of transfer. updated on POC and transfer via telephone. DM here to take patient at this time. Pain is not improved at time of transfer. [facility] ED NOTE HNO ID: [id number] Author: Yuki Mckenzie) MERA Cruz Service: ? Author Type: Registered Nurse Type: ED Notes Filed: 06/20/2019 1:15 AM Note Text: Clean catch urine specimen obtained and sent. [facility] ED NOTE HNO ID: [id number] Author: Yuik Mckenzie) MERA Cruz Service: ? Author Type: [...] time with getting transferred to another facility. [facility] ED NOTE HNO ID: [id number] Author: Yuki Mckenzie) MERA Cruz Service: ? Author Type: Registered Nurse Type: ED Notes Filed: 06/20/2019 3:28 AM Note Text: Patient stated Valium did not help. She continues to be in pain and upset. She wanted to speak with someone in charge and update on POC. [facility] HISTORY PHYSICALon 9 HISTORY PHYSICAL HNO ID: [id number] Author: Talita Wesley RN Service: General Internal [...] not a surgical candidate. It wasn't until 2016 that she got a second opinion and [...] tightness that is constant. Notices a decreased humane officer strength and weakness in left hand. She [...] pressure, palpitations, leg swelling. Denies hx of [place]. GI: Denies nausea, vomiting, diarrhea, abdominal pain, [...] rotation 40/80% Decreased left C5-C7 sensation. Left humane officer strength 2/5. Right humane officer strength 5/5. UE DTR intact and equal. [...] tightness into left arm, weak left hand humane officer strength, and worsening severity of numbness/tingling -Afebrile [...] confirmed with patient pharmacy. Patient uses [facility] in [place], [place]. Patient provided #[phone]. Will call in am to confirm dose. Nicotine Abuse Assessment AND Plan: Smokes 1 1/2 PPD for 20 years. Smoking cessation advised. Nicotine patch ordered. Medication and Non-Pharmacologic VTE Prophylaxis/Anticoagulants VTE Prophylaxis: VTE prophylaxis appropriate SIGNATURE: Talita Wesley APRN.CNP PATIENT NAME: Morales Lee DATE: June 20, 2019 TIME: 2:58 AM PAGER/CONTACT #: CDU # [phone] [facility] NURSING PROGon 06-20-2019 NURSING PROG HNO ID: [id number] Author: Austyn WilksRn) MERA Berumen Service: Nursing Author Type: Registered Nurse Type: Nursing Progress Note Filed: 06/20/2019 3:10 PM Note Text: Nursing Progress Note Patient Name: Morales Lee Patient Location: [id number] 2 Daily Note:06/20/2019 -pt is upset regarding [...] note was completed by: AUSTYN BERUMEN RN [facility] NURSING PROG HNO ID: [id number] Author: Austyn Mckenzie) MERA Berumen Service: Nursing Author Type: Registered Nurse Type: Nursing Progress Note Filed: 06/20/2019 8:10 AM Note Text: Nursing Progress Note Patient Name: Morales Lee Patient Location: [id number] 2 Daily Note:06/20/2019 -assumed care of patient, pt is requesting her suboxone. We have to call to verify dosage. -MERA Acosta called pharmacy provided by night [employer] and the pharmacy does not open until 9am. We will call back to verify dose later. -Dr. Kwon called to speak with this RN, he will be in to see the patient later today. This note was completed by: AUSTYN BERUMEN RN [facility] NURSING PROG HNO ID: [id number] Author: Guadalupe (Rn) MERA Herbert Service: ? Author Type: Registered Nurse Type: Nursing Progress Note Filed: 06/20/2019 4:33 AM Note Text: Nursing Progress Note Patient Name: Morales Lee Patient Location: [id number] 2 Daily Note:AANDO x 3. C/O left [...] note was completed by: Guadalupe Herbert RN [facility] PROGRESSon 06-20-2019 PROGRESS HNO ID: [id number] Author: Sedrick Martin Service: General Internal Medicine [...] rales. Cor:RSR, no murmurs. 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 DATA: Diagnostic tests [...] * Medication and Non-Pharmacologic VTE Prophylaxis/Anticoagulants 06/20/19 040 pneumatic compression stockings ([place] 06/20/19 040 activity - mobilize patient ([place] VTE Prophylaxis: appropriate SIGNATURE: Sedrick Martin MD PATIENT NAME: Morales Lee DATE: June 20, 2019 TIME: 10:41 AM PAGER: [facility] PROGRESS HNO ID: [id number] Author: Sedrick Martin Service: General Internal Medicine Author Type: Physician Type: Progress Notes Filed: 06/20/2019 8:25 AM Note Text: As per Pain Management Consult still pending, I was notified by Pain Management to resume the pt.' s home Suboxone dosage until pt. Seen later today. [facility] Troponin Ton 06-20-2019 Troponin T.cardiac [Mass/Vol] ug/L Normal 0.000-0.029 [facility] Comment on above: Performed By: #### T NT #### [facility] [address] [place] [address] Troponin T.cardiac [Mass/Vol] ug/L Normal 0.000-0.029 [facility] Comment on above: Performed By: #### T NT #### [facility] [address] [place] [address] Basic Metabolic Panlon 06-19 Anion gap [Moles/Vol] 14 mmol/L Normal 9-18 [facility] Calcium [Mass/Vol] 10.3 mg/dL High 8.5-10.2 [facility] Chloride [Moles/Vol] 96 mmol/L Low 97-105 [facility] CO2 [Moles/Vol] 29 mmol/L Normal 22-30 [facility] Creatinine [Mass/Vol] 0.59 mg/dL Normal 0.58-0.96 [facility] eGFR- Amer. >60 Normal [facility] GFR/1.73 sq M predicted among non-blacks MDRD (S/P/Bld) [Vol rate/Area] mL/min/{1.73_m2} Normal [facility] Comment on above: Result [...] GFR. Glucose [Mass/Vol] 114 mg/dL High 74-99 [facility] Comment on above: Result Comment: The [place] Diabetes Association (ADA) provides guidance for cutoff [...] Standards of Medical Care in Diabetes 2016, [place] [employer]. Diabetes Care. 2016.39(Suppl 1). Potassium [Moles/Vol] 3.7 mmol/L Normal 3.7-5.1 [facility] Sodium [Moles/Vol] 139 mmol/L Normal 136-144 [facility] Urea nitrogen [Mass/Vol] 7 mg/dL Normal 7-21 [facility] CBC and Differentialon 06-19 Abs Baso 0.09 k/uL Normal <0.11 [facility] Abs [place] 0.61 k/uL Normal <0.87 [facility] Abs Neut 7.56 k/uL High 1.45-7.50 [facility] Absolute nRBC <0.01 Normal <0.01 [facility] Basophils/100 WBC (Bld) 0.7 % Normal [facility] DTYPE Auto Diff Normal [facility] Eosinophils (Bld) [#/Vol] 0.25 10*3/uL Normal <0.46 [facility] Eosinophils/100 WBC (Bld) 1.9 % Normal [facility] Erythrocyte distribution width (RBC) [Ratio] 12.0 % Normal 11.5-15.0 [facility] Hematocrit (Bld) [Volume fraction] 52.6 % High 36.0-46.0 [facility] Hemoglobin (Bld) [Mass/Vol] 18.0 g/dL High 11.5-15.5 [facility] Lymphocytes (Bld) [#/Vol] 4.67 10*3/uL High 1.00-4.00 [facility] Lymphocytes/100 WBC (Bld) 35.4 % Normal [facility] MCH (RBC) [Entitic mass] 30.0 pG Normal 26.0-34.0 [facility] MCHC (RBC) [Mass/Vol] 34.2 g/dL Normal 30.5-36.0 [facility] MCV (RBC) [Entitic vol] 87.7 fL Normal 80.0-100.0 [facility] Monocytes/100 WBC (Bld) 4.6 % Normal [facility] Neutrophils/100 WBC (Bld) 57.4 % [facility] NRBCs 0.0 /100 WBC Normal 0 [facility] Platelet mean volume (Bld) [Entitic vol] 10.1 fL Normal 9.0-12.7 [facility] Platelets (Bld) [#/Vol] 370 10*3/uL Normal 150-400 [facility] RBC (Bld) [#/Vol] 6.00 10*6/uL High 3.90-5.20 [facility] WBC (Bld) [#/Vol] 13.18 10*3/uL High 3.70-11.00 [facility] ED NOTEon 06-19-2019 ED NOTE HNO ID: [id number] Author: Yuki Mckenzie) MERA Cruz Service: ? Author Type: Registered Nurse Type: ED Notes Filed: 06/20/2019 3:27 AM Note Text: Patient has requested valium, she says that she takes it at home. [facility] updated. [facility] ED NOTE HNO ID: [id number] Author: Yuki Mckenzie) MERA Cruz Service: ? Author Type: Registered Nurse Type: ED Notes Filed: 06/20/2019 3:27 AM Note Text: Patient is complaining of nausea. She is requesting her saboxon as well and Biago was updated on request. [facility] ED NOTE HNO ID: [id number] Author: Yuki Cruz RN Service: ? Author Type: Registered Nurse Type: ED Notes Filed: 06/19/2019 7:54 PM Note Text: Said that after her surgery in 2016 her left pinky and ring finger are numb but she said lately her other fingers on that hand have been getting numb as well. [facility] ED NOTE HNO ID: [id number] Author: Vanessa Ruiz RN Service: ? Author Type: Registered Nurse Type: ED Notes Filed: 06/19/2019 6:48 PM Note Text: Patient has chronic neck pain for three years. Saw spine doctor 06/12/2019 for the same had x rays. Denies any new injury. States pain goes into left arm. Arrived via wheelchair [facility] ED PROV NOTEon 06-19-2019 ED PROV NOTE HNO ID: [id number] Author: Tracy Arredondo Service: Emergency Medicine Author [...] Genitourinary: Genitourinary Comments: Good rectal tone appreciated. MERA Givens chaperoned exam. Musculoskeletal: She exhibits no edema. Neurological: She is alert. 5/5 hip extension, knee extension/flexion, dorsiflexion, plantar flexion bilaterally. Normal gross motor and sensory function to light touch over bilateral lower extremities. 3/5 humane officer, bicep, tricep strength over LUE. Decreased sensation to light touch over left upper extremity in median, radial, and ulnar nerve distribution. 5/5 humane officer, bicep, tricep strength of R UE. Skin: [...] neurosurgical consult as previous notes from her license and permit specialist recommend obtaining EMG and possible further [...] a neurosurgical consult she warrants transfer to [facility] for further management of her condition. We have low suspicion for stroke at this time as pain appears to be radicular in nature and she has had worsening progression of her symptoms with documented notes from spine (Dr. Álvarez) suggesting this worsening pain and numbness. The FOAM CASTER, Talita, at [facility] recommended we obtain a CT brain and she must rule out any acute intercranial abnormality that may be contributing to the patient's symptoms. Therefore, this study was ordered and will be followed up by the night team especially if there is any acute intracranial abnormality. As long as there is no acute intracranial abnormality she will be transferred to [facility] for further evaluation and management of her condition. Patient voiced understanding was in agreement with the above plan. This patient's case was discussed with Dr. Arredondo who personally evaluated the patient supervised her care. The patient was TRANSFERRED to: [facility] Condition at time of disposition: stable SIGNATURE: NORMA Montgomery (Pa) 06/20/19 0026 Attending Note I have personally performed a face to face assessment of the patient and have reviewed the PA/ESTHETICIAN note. My schofield findings include: History is [...] of 5 strength left upper extremities in humane officer strength as well as biceps and triceps [...] worsening neck pain we will place her [place] observation for cardiac rule out as well [...] and requested by the observation provider at [place] as they were concerned about stroke. However I doubt this and did not feel this was necessary however it is currently pending and patient will be transferred to [place] if this is unremarkable. Signature: Tracy Arredondo DO Date: 06/20/2019 Time: 12:26 AM Tracy Arredondo 06/20/19 0033 Normal [facility] Magnesiumon 06-19-2019 Magnesium [Mass/Vol] 2.0 mg/dL Normal 1.7-2.3 [facility] Troponin Ton 06-19-2019 Troponin T.cardiac [Mass/Vol] ug/L Normal 0.000-0.029 [facility] CNOVon 06-12-2019 CNOV Office Visit (SPNMMN ) MORALES LEE ([id number]) 1975 F Date Time Provider Department 06/12/19 8:00 AM DIXIE TEE [facility] During your visit today, we [...] file Gets together: Not on file Attends mosque service: Not on file Active member of [...] healed incisions. Chest: symmetric expansion Data Review: F records reviewed Care everywhere Lumbar CT scan-02/2019-report [...] [Z98.890] Order(s):PATIENT PLACED ON SPINE CARE PATH [[id number]] Order #: [id number]: 1 XR SCOLIOSIS PA STAND/LAT 2V [[id number]] Order #: [id number] FUTURE EMG(NEURO/NI) [[id number]] Order #: [id number]: 1 FUTURE CONSULT TO SPINE SURGERY [[id number]] Order #: [id number]: 1 FUTURE Prescriptions as of 06/12/2019 Sig: [...] TEE MD on 06/12/[address] [facility] PROGRESSon 06-12-2019 PROGRESS HNO ID: [id number] Author: Zoey Aponte (Rt) Robert Trejo Service: Radiology Author Type: Bottling Line Attendant Type: Progress Notes Filed: 06/12/2019 10:10 AM [...] 12, 2019 10:[address] [facility] PROGRESS HNO ID: [id number] Author: Dixie Tee Service: ? Author Type: [...] 2006 with mesh - TOTAL ABDOM HYSTERECTOMY 2001 [...] file Gets together: Not on file Attends mosque service: Not on file Active member of [...] June 12, 2019 TIME: 8:12 AM Normal [facility] XR SCOLIOSIS 2V PA STAND/LAT on 06-12-2019 [...] changes and multilevel compression deformities as described. Clerical Clerk: PSCB Transcribe Date/Time: Jun 12 2019 4:36P Dictated by : CAROLINA MOJICA MD This examination was interpreted and the report reviewed and electronically signed by: CAROLINA MOJICA MD on Jun 12 2019 4:39PM EST [id number] Normal [facility] PROGRESSon 05-14-2019 PROGRESS HNO ID: [id number] Author: Laury Levin Service: ? Author Type: Physician Rod Greaser Type: Progress Notes Filed: 05/14/2019 1:26 PM Note Text: Patient reports difficulty walking, using the hands and ring finger and pinky finger on left hand numb. Has tried NSAIDS, muscle relaxants. Imaging reports describe chronic T12 compression fracture. Previous C6-7 fusion without any mentioned neural compression. Will have patient scheduled with [facility] for work up. May need EMG to rule out cubital tunnel syndrome. Normal [facility] PROGRESSon 05-09-2019 PROGRESS HNO ID: [id number] Author: Kathia Kelly Service: ? Author Type: ? Type: Progress Notes Filed: 05/14/2019 1:26 PM Note Text: Patient name: Morales Lee Are you being referred by a [place] for Spine Health Provider or Pain Management Provider at [facility]? No If answer is YES please schedule directly with surgeon, triage does not need to be completed. Is this a self-referral No If not, who is the Referring Provider: Dr. Hendricks/ [facility] MRI/CT/myelogram within 12 months: Yes If No , please refer to medical spine or PCP to complete above imaging, triage does not need to be completed Imaging viewable in Epic: No If not, please provide [phone] to fax in imaging reports for review. [...] spinal surgery for this same symptoms? Yes 2017 Additional Comments: Patient will fax imaging report and op notes. [phone] [facility] [address]-CT C-SPINE WO CON IMPORTo n 02-13-2019 CT-CT C-SPINE WO CON IMPORT Images were obtained outside of [facility] [id number] Normal [facility] CT-CT L-SPINE WO CON IMPORTo n 02-13-2019 CT-CT L-SPINE WO CON IMPORT Images were obtained outside of [facility] [id number] Normal [facility] Vital Signs Date Time Vital Sign Value Performing Clinician Facility 06-07-2022 12:48-0400 Diastolic blood pressure 83 mm[Hg] No Pcp Required [facility] 06-07-2022 12:48-0400 Heart rate 67 /min No Pcp Required [facility] 06-07-2022 12:48-0400 Respiratory rate 16 /min No Pcp Required [facility] 06-07-2022 12:48-0400 SaO2% (BldA) [Mass fraction] 96 % No Pcp Required [facility] 06-07-2022 12:48-0400 Systolic blood pressure 148 mm[Hg] No Pcp Required [facility] 01-06-2022 10:51-0400 Blood Pressure Location NATALIA MANNING [facility] 01-06-2022 10:51-0400 Diastolic blood pressure 86 mm[Hg] NATALIA MANNING [facility] 01-06-2022 10:51-0400 Heart rate 86 /min NATALIA MANNING [facility] 01-06-2022 10:51-0400 Respiratory rate 16 /min NATALIA MANNING [facility] 01-06-2022 10:51-0400 Systolic blood pressure 132 mm[Hg] NATALIA MANNING [facility] 09-08-2021 14:15-0500 Body height 149.86 cm No PCP None [facility]-Neurosurgery- Ah uja Work Phone: 09-08-2021 14:15-0500 Body mass index (BMI) [Ratio] 36.96 kg/m2 No PCP None VI-Qybjbywvktgt-Tu uja Work Phone: 09-08-2021 14:15-0500 Body surface area Derived from formula 1.78 m2 No PCP None PD-Lyqdfosyszsw-It uja Work Phone: 09-08-2021 14:15-0500 Body weight 83.01 kg No PCP None [facility]- Ah uja Work Phone: 09-08-2021 14:15-0500 Diastolic blood pressure 68 mm[Hg] No PCP None LZ-Vqamjplqzurr-Qu uja Work Phone: 09-08-2021 14:15-0500 Heart rate 96 /min No PCP None [facility]- Ah uja Work Phone: 09-08-2021 14:15-0500 Respiratory rate 16 /min No PCP None [facility] -Ah uja Work Phone: 09-08-2021 14:15-0500 Systolic blood pressure 115 mm[Hg] No PCP None II-Ejwgvooryujw-Pd uja Work Phone: 09-08-2021 14:15-0500 0 1 No PCP None [facility]Neurosurgery- Ah uja Work Phone: Comment on above: [employer] 01-01-2021 16:46-0400 Heart rate 111 /min No Pcp Required [facility] 01-01-2021 16:46-0400 SaO2% (BldA) [Mass fraction] 95 % No Pcp Required [facility] 01-01-2021 14:00-0400 Body temperature 96.8 [degF] No Pcp Required [facility] 01-01-2021 14:00-0400 Diastolic blood pressure 77 mm[Hg] No Pcp Required [facility] 01-01-2021 14:00-0400 Respiratory rate 18 /min No Pcp Required [facility] 01-01-2021 14:00-0400 Systolic blood pressure 114 mm[Hg] No Pcp Required [facility] Encounters Encounter Date Encounter Type Care Provider Facility Start: 06-08-2024 End: 06-08-2024 ambulatory Kathrine Patel RN [facility] Start: 05-14-2024 End: 05-14-2024 ambulatory GENNY HILARIO Not Available Start: 03-27-2024 End: 03-31-2024 Pre-admission assessment LEX FREDERICK [facility] Start: 03-26-2024 End: 04-07-2024 Pre-admission assessment LEX FREDERICK [facility] Start: 02-13-2024 End: 02-13-2024 ambulatory SHAIKH MICAH Not Available Start: 11-01-2023 End: 11-01-2023 ambulatory SHAIKH MICAH Not Available Start: 10-10-2023 Orders Only Shaikh Micah HARKINS Work Phone: [facility] Comment on above: Chronic low back hina n, unspecified back pain laterality, unspecified whether sciatica present (Primary Dx); Nausea in adult Start: 06-02-[address] Lex Frederick Facility:[id number] Start: 01-15-2023 End: 01-15-2023 ambulatory LALI BENITEZ Facility:H1 Start: 01-13-2023 End: 01-13-2023 ambulatory IVON LAWS . Facility:H1 Start: 12-31-2022 ambulatory SHAIKH MICAH Facility: [facility]ZAD [facility] Start: 12-22-2022 End: 12-22-2022 ambulatory MENDOSA H FAWWAD Facility:H1 Start: 12-08-2022 AUDIT No PCP None [facility] [address] [place] Work Phone: Start: 12-08-2022 Chart Update No PCP None [facility]uro[facility] [facility] [address] [place] Work Phone: Start: 11-26-2022 End: 11-26-2022 Patient encounter procedure Danya Bingham [facility] Start: 11-22-2022 ambulatory MENDOSA H FAWWAD Facilit y:H1 Start: 11-09-2022 End: 11-09-[address] DEVANTE Rojas Facility:H1 Start: 10-15-2022 End: 10-15-2022 ambulatory KYRA Rojas Facility:H1 Start: 09-24-2022 End: 09-24-2022 Patient encounter procedure Danya Bingham [facility] Start: 09-01-2022 Encounter for preprocedural laboratory examination DANYA BINGHAM . [facility] Start: 08-25-2022 End: 08-25-2022 ambulatory MENDOSA H FAWWAD Facility:H1 Start: 08-24-2022 End: 08-25-2022 ambulatory MENDOSA H FAWWAD Facility:H1 Start: 08-24-2022 End: 08-25-2022 Encounter for preprocedural laboratory examination MENDOSA H FAWWAD Facility:H1 Start: 08-21-2022 ambulatory MENDOSA H FAWWAD Facilit y:H1 Start: 07-16-2022 End: 07-16-2022 Patient encounter procedure Danya Bingham [facility] Start: 06-06-2022 End: 06-07-2022 Emergency department patient visit Yony Aguirre [facility] 45 Start: 05-31-2022 End: 05-31-[address] ALEXANDRU SORIA . Facility:H1 Start: 05-19-2022 End: 05-19-2022 Off-Site Danya Bingham [facility] Start: 05-07-2022 End: 05-07-2022 ambulatory SHAIKH Shirley [...] 02-04-2022 Off-Site Danya Bingham [facility] Start: 01-11-2022 Chart Update No PCP None [facility] [place] Work Phone: Start: 01-11-2022 End: 01-11-2022 Patient encounter procedure Danya Bingham [facility] Start: 01-07-2022 AUDIT No PCP None [facility]su [facility] Elenita Long [address] Work Phone: Start: 01-06-2022 End: 01-06-2022 Patient encounter procedure NATALIA MANNING [facility] Start: 10-13-2021 AUDIT No PCP None MG-Neurosu rgery-Ahuj a Work Phone: Start: 09-29-2021 AUDIT No PCP None MG-Gastroe nterology- [place] [facility] Work Phone: Start: 09-15-2021 End: 10-02-2021 Evaluation and management of inpatient Dr. LEX FREDERICK Facility:[facility] Start: 09-09-2021 AUDIT No PCP None MG-Neurosu rgery-Ahuj a Work Phone: Start: 09-08-2021 Office outpatient vi sit 40 minutes No PCP None JA-Adtmxhdrjvyy-Dhjf a Work Phone: Start: 05-05-2021 Postop follow up vis it related to original px No PCP None QT-Ighyzvmqcdum-FQGA C Work Phone: Start: 12-26-2020 End: 01-01-2021 Evaluation and management of inpatient Lex Frederick [facility] Kaley [id number] Rm [id number] 01 Preoperative state No PCP None [facility]-Neuros urgery-[facility] Work Phone: Procedures Date Procedure Procedure Detail Performing Clinician Start: 09-21-[address] EFRAIN FREDERICK Comment on above: Performed By: #### A FPA3 #### [facility] [address] [place] [address] Start: 09-21-[address] EFRAIN FREDERICK Comment on above: Order Comment: CUADRA Dane ESPINO, 09/21/2021 05:08TEST TYPE + SCREEN WAS CANCELLED, 09/21/2021 05:06 NO PHLEB ID ON TUBE. Result Comment: CALL ED MERA ESPINO, 09/21/2021 05:08 Performed By: #### A FPA3 #### [facility] [address] [place] [id number] Start: 09-17-[address] EFRAIN FREDERICK Comment on above: Performed By: #### T +S #### [facility] [address] [place] [address] Start: 12-27-2020 End: 12-28-2020 Release Blood Product-Packed Red Blood Cells Devante Nunez Start: 12-26-2020 Renal function 2000 panel - Serum or Plasma Nabil Awan Appendectomy NATALIA MANNING Cholecystectomy NATALIA CHAMBERS Hernia NATALIA MANNING Hysterectomy NATALIA MANNING mylogr NATALIA MANNING Plan of Treatment Date Care Activity Detail Author Start: 02-21-2030 DTaP,Tdap and Td Vaccines (2 - Td or Tdap) DTaP,Tdap and Td Vaccines (2 - Td or Tdap) [facility] Start: 06-13-2024 End: 06-13-2024 Patient encounter procedure 06/13/2024 9:20 AM EDT Office Visit [facility] [address] [place] [id number] Lian Greer, [employer] TAILOR-FOAM CASTER [address] [place] [address] [facility] Start: 05-06-2024 Influenza vaccination Influenza Vacc ine [facility] Start: 10-17-2023 End: 10-17-2023 Patient encounter procedure 10/17/2023 6:30 PM EST Office Visit [facility] [address] [place] [id number] Shaikh Obrien MD [address] [place] [phone] [facility] Start: 2023 Administration of varicella zoster vaccine Zoster (Shingles) Vaccine (1 of 2) [facility] Start: 05-06-2023 Influenza vaccination Influenza Vacc ine (#1) [facility] Start: 11-03-2021 POV, Provider: Lex Frederick, Status: Pen, Time: 2:00 PM POV, Provider: Lex Frederick, Status: Pen, Time: 2:00 PM IP-Txzxegczlpoanyoe-P [place] [facility] Work Phone: Start: 10-07-2021 Admission to [facility] RNVISIT, Provider: NURSE VISIT ASHLEY 5TH,MGNEUROSURGERY, Status: Pen, Time: 10:15 AM VI-Rgjkcsxurqhuliwq-Z [place] [facility] Work Phone: Start: 09-18-2021 [facility] Provider: Lex Frederick, Status: Pen, Time: 8:00 AM [facility] Provider: Lex Frederick, Status: Pen, Time: 8:00 AM FJ-Iziiuininbbb-Xypgx Work Phone: Start: 01-08-2021 Patient encounter procedure Neurosurgery Miguel Start: 12-31-2020 End: 01-01-2022 [facility] Comment on above: please place at beds geraldine for drain removal Start: 12-26-2020 End: 12-27-2021 Naloxone Injectable 0.4 mg IntraVenous Push Once ; (NARCAN)DOSE = 0.2 mg IntraVenous Push Once, PRN patient is unarousable, and respiratory rate lessClinician Notes: HOLD FAMILY REUNIFICATION SPECIALIST Infusion and notify H.O. immediately Start: 26-Dec-2020 End: 26-Dec-2021 Ordered: 26-Dec-2020 Nabil Awan Intent Comments: HOLD FAMILY REUNIFICATION SPECIALIST Infusion and notify H.O. immediately [facility] Comment on above: HOLD FAMILY REUNIFICATION SPECIALIST Infusion an d notify H.O. immediately Start: 2013 Screening for malign ant neoplasm of breast Mammogram [facility] Start: 2003 Screening for malign ant neoplasm of cervix [facility] Start: 1994 Screening for malign ant neoplasm of cervix Pap Smear [facility] Start: 1991 Adult BMI Screening Adult BMI Screen ing [facility] Start: 1985 Depression Screening Depression Scre [facility] Start: 1985 Tobacco Screening Tobacco Screening [facility] Start: 1973 Screening for malign ant neoplasm of colon [facility] Immunizations Immunization Date Immunization Notes Care Provider Delfino chu 02-22-2020 tetanus toxoid, redu luis diphtheria toxoid, and acellular pertussis vaccine, adsorbed Danya Bingham [facility] 12-05-2018 hepatitis A vaccine, adult dosage Danya Bingham [facility] Payers Date Payer Category Payer Unknown 1973 Unknown [id number] 2.16. [id number] 1973 Unknown [id number] 2.16. 840.1.034275.3.579.2.356 1973 Unknown [id number] 2.16.84 0.1.657652.3.579.2.593 1973 Unknown [id number] 2.16.84 0.1.624564.3.579.2.593 1973 Unknown [id number] 2.16.84 0.1.007773.3.579.2.593 1973 Unknown [id number] 2.16.84 0.1.695021.3.579.2.593 1973 Unknown [id number] 2.16.84 0.1.765048.3.579.2.593 1973 Unknown [id number] 2.16.84 0.1.121576.3.579.2.593 1973 Unknown [id number] 2.16.84 0.1.644008.3.579.2.593 1973 Unknown [id number] 2.16.84 0.1.853002.3.579.2.593 1973 Unknown [id number] 2.16.84 0.1.398771.3.579.2.593 1973 Unknown [id number] 2.16.84 0.1.826331.3.579.2.593 1973 Unknown [id number] 2.16.84 0.1.556938.3.579.2.593 1973 Unknown [id number] 2.16.84 0.1.020766.3.579.2.593 1973 Unknown [id number] 2.16.84 0.1.869156.3.579.2.593 1973 Unknown [id number] 2.16.84 0.1.318757.3.579.2.593 1973 Unknown [id number] 2.16.84 0.1.292768.3.579.2.593 1973 Unknown [id number] 2.16.84 0.1.979442.3.579.2.593 1973 Unknown [id number] 2.16.84 0.1.997159.3.579.2.593 1973 Unknown [id number] 2.16.8 40.1.691015.3.579.2.1046 1973 Unknown [id number] 2.16.8 40.1.611268.3.579.2.727 1973 Unknown [id number] 2.16.84 0.1.995455.3.579.2.1259 1973 Unknown [id number] 2.16.84 0.1.372533.3.579.2.1259 1973 Unknown [id number] 2.16.84 0.1.913932.3.579.2.1259 1959 Unknown [id number] Social History Date Type Detail Facility [facility] Tobacco smoking consumption unknown [facility] Start: 10-16-2020 End: 08-01-2023 History of drug use History of drug use LS-Anlpcjmourtm-QTLZ C Work Phone: Start: 01-05-2016 End: 08-01-2023 Tobacco smoking status Smokes tobacco daily (finding) [facility] Comment on above: 1ppd 1ppd Start: 10-16-2020 End: 08-08-2023 Sex Assigned At Female [facility] History of tobacco use [facility] Start: 08-08-2023 Alcohol intake Lifetime non-d prasanna (finding) [facility] Start: 1975 Sex Assigned At Not on file N [facility] Childcare Unknown [facility] Medical Equipment Procedure Code Equipment Code Equipment Origin al Text Equipment Identifier Dates 2 EA, SubLingual , Daily, Refill(s) 0 Start: 01-05-2016 2 EA, SubLingual , Daily, Refill(s) 0 Start: 01-05-2016 2 EA, SubLingual , Daily, Refill(s) 0 Start: 01-05-2016 Functional Status Date Assessment Result Facility 11-26-2022 Functional Status N/A [facility] 07-16-2022 Functional Status N/A [facility] Functional observable [facility] Mental Status Date Assessment Result Facility 12-29-2020 Cognitive functi ons [id number] [facility] Clinical Notes 12-26-2020 to 06-08-2024 Telephone Encounter - Kathrine Patel RN - 06/08/2024 3:24 PM EDTTelephone Encounter - Kathrine Patel RN - 06/08/2024 3:24 PM EDTTelephone Encounter - Kathrine Patel RN - 06/08/2024 3:24 PM EDT Note Date & Type Note Facility 06-08-2024 Miscellaneous Notes Formattin g of this note might be different from the original. ----- Message from [employer] sent at 06/08/2024 3:14 PM EDT ----- Contract: [facility] Lidoderm Patch from [employer], not sure if can use Contract: [facility] Patient is not a current patient of this office informed that sameer desir give advice without this. Will call her insurance company. No triage done Reason for Disposition Caller has cancelled the call before the first contact Protocols used: No Contact or Duplicate Contact Call-A-AH documented in this encounter [facility] 06-08-2024 Telephone encount er Note ----- Message from [employer] sent at 06/08/2024 3:14 PM EDT ----- Contract: [facility] Lidoderm Patch from [facility], not sure if can use [facility] 06-08-2024 Telephone encount er Note Contract: [facility] Patient is not a current patient of this office informed that sameer desir give advice without this. Will call her insurance company. No triage done [facility] 06-08-2024 Telephone encount er Note Reason for Disposition Caller has cancelled the call before the first contact Protocols used: No Contact or Duplicate Contact Call-A-AH [facility] 11-26-2022 Hospital Discharg e instructions Patient Education [...] 10/01/2017 Document Revised: 12/14/2019 Document Reviewed: 10/01/2017 [employer] Patient Education 2020 [employer] Follow Up Care 10/14/2022 11:11:52 With:Zachery HARKINS, Danya Rhodes, URL, URO Address: When: Unknown [facility] 09-23-2022 [facility] Discharg e instructions Patient Education 09/23/2022 13:13:56 [...] including vitamins, herbs, eye drops, creams, and cmaa-yjn-eejfofg medicines. Any problems you or family members [...] provider tells you to take them. Taking thno-xix-hejvokj medicines, vitamins, herbs, and supplements. General instructions [...] 08/08/2013 Document Revised: 10/08/2019 Document Reviewed: 10/08/2019 [employer] Patient Education 2019 [employer]. Follow Up Care 08/31/2022 10:49:10 With:Zachery HARKINS, CAROLEE Anderson, URO Address: When: Unknown [facility] 07-16-2022 Hospital Discharg e instructions Patient [...] nerve stimulation). For women, using a medical records secretary to prevent urine leaks. This is a [...] right after experiencing incontinence. General instructions Take cpdo-wga-hssuesr and prescription medicines only as told by [...] 09/29/2005 Document Revised: 09/01/2018 Document Reviewed: 12/01/2017 [employer] Patient Education 2020 [employer]. Follow Up Care 06/15/2022 11:30:52 With:Zachery HARKINS, CAROLEE Anderson, URO Address: When: Unknown [facility] 02-04-2022 Hospital Discharg e instructions Patient Education [...] nerve stimulation). For women, using a medical records secretary to prevent urine leaks. This is a [...] right after experiencing incontinence. General instructions Take ctlo-nlu-octtfvt and prescription medicines only as told by [...] 09/29/2005 Document Revised: 09/01/2018 Document Reviewed: 12/01/2017 [employer] Patient Education 2020 [employer]. 02/04/2022 16:23:10 Calorie Counting for Weight [...] 08/22/2006 Document Revised: 05/11/2019 Document Reviewed: 07/22/2017 [employer] Patient Education 2020 [employer]. Follow Up Care 02/04/2022 13:28:46 With:Danya Bingham MD, URL, URO Address: When: Unknown [facility] 01-11-2022 Evaluation + Plan note Extrac alexander [...] and Plan Diagnosis Bowel and bladder incontinence (BWP30-OW R32, Billing Diagnosis, Medical). 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 Diagnosis Bowel and bladder incontinence (CPT80-WK R32, Billing Diagnosis, Medical). Incontinence without sensory awareness (DYW78-KV N39.42, Working, Medical). Addendum by Danya Bingham MD on January 11, 2022 10:23 EDT Post procedure diagnosis: Intrinsic sphincter deficiency, acontractile detrusor [facility]05-09-2022 Hospital Discharge instructions Patient Education [...] 01/06/2022 11:41:34 With:Danya Bingham Address: [address] [address]- [phone] Business (1) When: Unknown Comments:Call for followup appointment in 2-3 weeks With:Danya Bingham Address:Unknown When: Unknown [facility]05-04-2022 Hospital Discharge instructions Patient Education [...] program. Other places that provide vaccinations include: [facility] health clinics. Check with your local health department. [facility], where you would pay only what you can afford. To find one near you, check this website: [email or web address]/ [facility]. These are part of a [...] information Learn more about cervical cancer from: [employer]: www.acog.org/Patients/FAQs/Cervical-Cancer [employer]: www.cancer.org/cancer/cervicalcancer/ U.S. Centers for Disease [...] 09/05/2016 Document Revised: 09/23/2018 Document Reviewed: 04/19/2017 [employer] Patient Education 2020 [employer]. Follow Up Care 11/20/2021 10:16:51 With:NATALIA MANNING PA-C, URL Address: [address] [place] [address] When:01/13/2022 [facility] 01-28-2022 NoteSend Summary: Discharge Summary [...] Care - New Vital Signs: T PRBPSpO2 Value36.9180025/6394% Date/Time10/02 8: 8: 8: 8: 8:00 Range(36.1C [...] placement 09/23 Patient transitioned from post op FAMILY REUNIFICATION SPECIALIST to oral pain regimen 09/24 Fitted for [...] discharge; ok for danya to be removed 2/. PT/OT evaluated. Patient was discharged to home [...] or twist. Instead, bend at knees to waste picker objects (more content not included)...[facility]-26-2022 NoteThis report has been cancelled.[facility]01-17-2022 NotePROCEDURE DETAILS Postoperative Diagnosis: lumbar stenosis Surgeon: Dr. Lex Frederick Resident/Fellow/Other Rod Greaser: Chery Awan Procedure: posterior L4-L5 decompression posterior [...] Attestation: Note Completion: I am a:Resident/Fellow Attending Vasu was present for the entire procedure Electronic Signatures: Lex Frederick) (Signed 22-Sep-2021 10:54) Authored: Post-Operative Note, Chart Review, Note Completion Co-Signer: Post-Operative Note, Chart Review, Note Completion Nabil Awan ( (Resident)) (Signed 21-Sep-2021 15:38) Authored: Post-Operative Note, Chart Review, Note Completion Last Updated: 22-Sep-2021 10:54 by Lex Frederick)[facility]01-17-2022 NoteHistory & Physical Reviewed: /Lactating: Are [...] Note Completion: I am a: Resident/Fellow Attending AttLucy saw and evaluated the patient. I personally obtained the schofield and critical portions of the history and physical exam or was physically present for schofield and critical portions performed by the resident/fellow. I reviewed the resident/fellows documentation and discussed the patient with the resident/fellow. I agree with the resident/fellows medical decision making as documented in the note. I personally evaluated the patient [id number] Electronic Signatures: Lex Frederick) (Signed 21-Sep-2021 11:50) Authored: Note Completion Co-Signer: History & Physical Reviewed, ERAS, Consent, Note Completion Jaya Mosquera (Resident)) (Signed 21-Sep-2021 02:51) Authored: History & Physical Reviewed, ERAS, Consent, Note Completion Last Updated: 21-Sep-2021 11:50 by Lex Frederick () References: 1. Data Referenced From MRI Safety Screen v2 19-Sep-2021 19:00[facility]01-15-2022 NoteRehab: Info: Mode of Treatmentoccupational therapy; attempted; OT evaluation initiated with home set-up obtained (1st floor set up/ 0 step entry, lives with , tub shower with chair); Pt with low BP upon arrival 79/54. Second BP reading taken at 71/51. RN notified, further evaluation deferred at this time. OT to reattempt when pt medically appropriate. 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 Exploration of spinal [...] performed and the images transferred to the [employer] system for use in intraoperative image-guided computer-assisted [...] using the torque dri (more content not included)...[facility]01-14-2022 NoteThis report has been cancelled.[facility]01-14-2022 NoteHistory & Physical Reviewed: /Lactating: Are [...] the note. I personally evaluated the patient [id number] Electronic Signatures: Fidel Maciel (Resident)) (Signed 17-Sep-2021 22:49) Authored: History & Physical Reviewed, ERAS, Consent, Note Completion Lex Frederick) (Signed 19-Sep-2021 10:17) Authored: Note Completion Co-Signer: History & Physical Reviewed, ERAS, Consent, Note Completion Last Updated: 19-Sep-2021 10:17 by Lex Frederick) References: 1. Data Referenced From MRI Safety Screen v2 17-Sep-2021 11:28[facility]01-[facility]22 NoteReferral Information: Consult requested by (Attending [...] be able to m (more content not included)...[facility]01-11-2022 NoteHistory of Present Illness: /Lactating: Are [...] the note. I personally evaluated the patient [id number] Electronic Signatures: Fidel Maciel (Resident)) (Signed 15-Sep-2021 [...] Plan Last Updated: 16-Sep-2021 10:20 by Lex Frederick)[facility]04-23-2021 History of Present illness Narrative* I just had the pleasure of seeing Mrs. Lee back in the Neurosurgery Spine Clinic at the [facility]. 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 LEE care. * Lex Frederick MD, [facility], [facility] * Director - Minimally Invasive Spine Surgery * [facility] * Operational Risk Consultant of Neurological Surgery * [facility] [employer] * [place], [place] * Some of this note was completed using [employer] voice recognition technology and sometimes the software misinterprets words. This may include unintended errors with respect to translation of words, typographical errors or grammar errors which may not have been identified prior to finalization of the chart note. Please take this into account when reading this note. [id number] Work Phone: [phone]) 632-757104-23-2021 Reason for referral (narrative)* Reason for Referral: Patient s/p posterior bilateral L1 transpedicular decompression, posterior T7-T8, T8-T9, T9-T10, T0-T11, T11-T12, T12-L1 hutton hernandez osteotomies, Posterior T5-L4 instrumentation and fusion on 12[facility]26 [facility] Future App[facility]ments Appointment Date:01/07/2022 11:00:00 AM Scheduled Provider: Location:[facility] Appointment Type:Urology CALL PAT FT Appointment Date:01/11/2022 08:00:00 AM Scheduled Provider: Location:[facility] Appointment Type:Urology FT Appointment Date:01/11/2022 09:00:00 AM Scheduled Provider: Location:[facility] Appointment Type:Urology FT [facility] Plan note Future Appointments Appointment Date:04/06/2024 12:00:00 PM Scheduled Provider: Location:.MRI Appointment Type:MRI Spine (FT) Appointment Date:04/06/2024 12:00:00 PM Scheduled Provider: Location:[facility] Appointment Type:Surgery FT Future Scheduled Tests Radiology* MRI Spine Cervical w/o Contrast 04/06/24 * MRI Spine Lumbar w/o Contrast 04/06/24 * MRI Spine Thoracic w/o Contrast 04/06/24 [facility] Evaluation note* Neurological: [id number] 5/5 except hg/io4+ble 5/5incision cdiHead/Neck: Ox3, awake, alertBUE 5 prox, HG/IO4+BLE HF/KE/DF/PF/EHL 5 [facility]* Constitutional: in no acute distressSkin: Well perfusedEyes: OU 3RHead/Neck: atraumatic, normocephal icRespiratory/Thorax: airway intact, good chest expansionCardiovascular: normal rate, regular rhythmGastrointestinal: non-tenderNeurological: NAD, A&Gb9Pzjrctb Nerves II-XII: PERRL, EOMI, Face symmetric, Facial SILT, Palate/Tongue midline and symmetric, shoulder shrugs symmetric, hearing intact to finger rubs bilaterallyMotor: RUE D5, B5, T5, HG5, IO5LUE D5, B5, T5, HG5, IO5RLE HF 4+, KE4+, PF4-, DF3LLE HF 4+, KE4+, PF3, DF4-Sensation: SILT throughout all extremitiesPsychological: mood appropriate [facility]* Diagnosis Chronic low back pain, unspecified back pain laterality, unspecified whether sciatica present- Primary Nausea in adult [facility] N[facility]ative No data available for this section [facility] Hospital Discharge instructions* Activity:activity as [...] Certification:Home Care Services Needed: yesSkilled Disciplines Ordered: RN/CLINICAL PSYCHIATRIST, PT, OTFace to Face Encounter Completed: yesDate of Encounter: [id number] Necessity for Homecare (based on clinical findings): [...] washing dishes, & loading the dryer or management associate until cleared by MD. * Wound Care:Inspect [...] legs and/or calves. * Follow-Up - Neurosurgeon:Physician/Dept/Service: NeurosurgeDr Ignacio sharif Date/Time: 08-Jan-2021 10:40Location: [facility], [facility] [address] [place], [place]Phone Number: [phone]: 2 week postop/wound check visit; Bring Insurance Card and Photo ID [facility] Dis[facility] instructions No data available for this section [facility] InstructionsNot on filedocumented in this encounter [facility] SystemProgress note No data available for this section [facility] reason for referral (narrative) , urinary incontinence, neurogenic bladder, open bladder neck, possible SP tube placement Referred by: Zachery HARKINS, Danya Rhodes [facility] Summary Purpose Family History Unknown Family [...] section and content) DATE CREATED AUTHOR 06/20/2019 [facility] DATE CREATED AUTHOR AUTHOR'S ORGANIZ ATION 06/20/2019 [facility] DATE CREATED AUTHOR AUTHOR'S ORGANIZ ATION 07/26/2019 [facility] DATE CREATED AUTHOR AUTHOR'S ORGANIZ ATION 12/29/2020 [facility] DATE CREATED AUTHOR AUTHOR'S ORGANIZ ATION 09/16/2021 [facility] DATE CREATED AUTHOR AUTHOR'S ORGANIZ ATION 11/25/2021 [facility] DATE CREATED AUTHOR AUTHOR'S ORGANIZ ATION 12/10/2021 [facility] DATE CREATED AUTHOR AUTHOR'S ORGANIZ ATION 08/06/2022 [facility] DATE CREATED AUTHOR AUTHOR'S ORGANIZ ATION 01/17/2023 [facility] DATE CREATED AUTHOR AUTHOR'S ORGANIZ ATION 06/09/2023 [facility] DATE CREATED AUTHOR AUTHOR'S ORGANIZ ATION 12/29/[address] [facility] DATE CREATED AUTHOR AUTHOR'S ORGANIZ ATION 05/15/2024 [facility] d[facility] Specialists EPIC <item><item> Privacy Markings (unrecogniz [...] Care Team (unrecognized sect ion and content) Monomer Purification Operator Relationship Specialty Start Date End Date Shaikh Obrien MD PCP - General Internal Medicine 08/05/23 Monomer Purification Operator Relationship Specialty Start Date End Date Shaikh Obrien MD PCP - General Internal Medicine 11/15/22 FOR RECORDS PERTAINING TO PATIENTS WHO ARE [...] BE BASED ON THE PRIMARY CLINICAL RECORDS. [employer]...Exactly [facility]. provides no warranty or guarantee of the accuracy or completeness of information in this document.
[2024-07-15] MEDS: KETOROLAC TROMETHAMINE 30 MG/ML VIAL 15 MG IVP (05:35)
[2024-07-15] MEDS: DICYCLOMINE HCL 20 MG/2 ML VIAL IM (05:35)
[2024-07-15] MEDS: PROMETHAZINE HCL 25 MG in 0.9 % SODIUM CHLORIDE 50 ML 204 MG IV (05:35)
[2024-07-15] MEDS: FAMOTIDINE/PF 20 MG/2 ML VIAL IV (05:35)
[2024-07-15 05:36] LABS: Basophils Percent Auto 0.2 % (0.2-2.0); Hematocrit 45.3 % (36.0-48.0); Hemoglobin 14.4 g/dL (12.0-16.0); Immature Granulocytes Abs Auto 0.05 10^3/uL (0.00-0.03); Immature Granulocytes Pct Auto 0.4 % (0.0-0.5); Lymphocytes Absolute Auto 1.1 10^3/uL (1.2-3.8); Lymphocytes Percent Auto 8.5 % (20.5-60.0); Mean Corpuscular HGB Conc 31.8 g/dL (29.9-35.2); Mean Corpuscular Hemoglobin 26.5 pg (26.7-34.0); Mean Corpuscular Volume 83.3 fL (81.0-99.0); Monocytes Absolute Auto 0.1 10^3/uL (0.3-0.8); Monocytes Percent Auto 0.8 % (1.7-12.0); Neutrophils Absolute Auto 11.4 10^3/uL (1.4-6.5); Neutrophils Percent Auto 90.1 % (43.0-75.0); Platelet Count 400 10^3/uL (150-450); Red Blood Count 5.44 10^6/uL (4.20-5.40); Red Cell Distribution Width 14.4 % (11.0-15.0); White Blood Count 12.7 10^3/uL (4.0-11.0)
[2024-07-15 05:39] VITALS: PULSE 84
[2024-07-15 05:40] VITALS: PULSE 82
[2024-07-15 05:45] VITALS: PULSE 81
[2024-07-15 05:50] LABS: Alanine Aminotransferase 32 U/L (14-59); Albumin Globulin Ratio 0.4; Albumin Level 2.8 g/dL (3.4-5.0); Alkaline Phosphatase 217 U/L (46-116); Anion Gap 15.9; Aspartate Amino Transferase 27 U/L (15-37); BUN Creatinine Ratio 9.6; Bilirubin Total 0.6 mg/dL (0.2-1.0); Calcium 9.2 mg/dL (8.5-10.1); Carbon Dioxide 27.1 mmol/L (21.0-32.0); Chloride 101 mmol/L (98-107); Estimated GFR (African America >60 (>=60 mL/min/1.73m^2); Estimated GFR (Non-African Ame >60 (>=60 mL/min/1.73m^2); Globulin 6.6 g/dL; Glucose 150 mg/dL (74-106); Sodium 140 mmol/L (136-145); Total Protein 9.4 g/dL (6.4-8.2); Troponin I High Sensitivity <4.0 pg/mL (4.0-51.3)
--- NOTE | 2024-07-15 06:17 | ED.GENADUL1 ---
Documented by User: Dane Colvin MD 07/15/24 06:56 HPI HPI - General Adult General Chief complaint: Abdominal Pain Stated complaint: nausea Time Seen by Provider: 07/15/24 05:13 Source: patient Mode of arrival: ambulance History of Present Illness HPI narrative: 49-year-old female to the emergency department with chief complaint of nausea and vomiting. Patient reports symptoms began today. She denies any abdominal pain. She denies any fever, sweats, chills, blood in the stool or dark tarry stools. She reports she has had this several times in the past and it is gastritis. She is also had a peptic ulcer. She reports that her doctor told her if it happened again she would be referred to GI for a scope. Related Data Home Medications ?Medication ?Instructions ?Recorded ?Confirmed buprenorphine 8 mg-naloxone 2 mg 2.5 film sublingual Q24H 03/01/23 07/15/24 sublingual film cyclobenzaprine 10 mg tablet 10 mg PO Q8H 03/01/23 07/15/24 diazepam 5 mg tablet 5 mg PO Q8H PRN anxiety 03/30/23 07/15/24 furosemide 40 mg tablet 40 mg PO DAILY 03/30/23 07/15/24 gabapentin 800 mg tablet 800 mg PO TID 03/30/23 07/15/24 oxybutynin chloride 15 mg 15 mg PO DAILY 03/30/23 05/06/24 tablet,extended release 24 hr potassium bicarbonate-citric acid 20 meq PO BID 03/30/23 05/06/24 20 mEq effervescent tablet (Effer-K) tizanidine 4 mg tablet 4 mg PO Q8H PRN muscle spasticity 03/30/23 07/15/24 zolpidem 12.5 mg tablet,extended 12.5 mg PO DAILY 03/30/23 05/06/24 release,multiphase fluoxetine 10 mg capsule 10 mg PO DAILY 05/06/24 07/15/24 Previous Rx's ?Medication ?Instructions ?Recorded ondansetron 4 mg disintegrating 4 mg PO Q8H PRN nausea and 05/07/24 tablet vomiting 0 days #30 tabs nitrofurantoin 100 mg PO Q12H 7 days #14 caps 07/12/24 monohydrate/macrocrystals 100 mg capsule (Macrobid) aluminum-mag hydroxide-simethicone 5 ml PO QID PRN abdominal pain 10 07/15/24 200 mg-200 mg-20 mg/5 mL oral susp days #300 mL (Maalox Advanced) nystatin 100,000 unit/gram topical 1 applic topical BID #30 grams 07/15/24 powder Allergies Allergy/AdvReac Type Severity Reaction Status Date / Time codeine Allergy Severe rash Verified 07/15/24 05:16 Penicillins Allergy Severe Anaphylaxis Verified 07/15/24 05:16 quetiapine (From Seroquel) Allergy Severe Seizure Verified 07/15/24 05:16 Opioid HPI Opioid Management Most Recent Opioid Data: Last Pain Scale 8 11/21/23 09:41 11/21/23 Urine Drug Screen Interp Final (.) 05/14/24 09:30 05/14/24 Review of Systems ROS Status of ROS 10 or more systems reviewed and unremarkable except as noted in history and below [facility] Social History Smoking status: Current every day smoker Little interest or pleasure in doing things: not at all Feeling down, depressed, or hopeless: not at all Exam Narrative Exam Narrative: VITALS: I have reviewed the triage vital signs. GENERAL: Disheveled adult female in no distress NEURO: Alert and oriented. Moves all extremities. Face is symmetric and expressive. EYES: PERRL. No scleral icterus or conjunctival injection. No discharge. HENT: Normocephalic, atraumatic. Hearing is grossly intact. Nares grossly patent and without discharge. Mucous membranes moist. NECK: No JVD. Patient moves neck without restriction. CARDIO: Rhythm regular. Normal rate. No murmur, rub, or gallop. Pulses equal bilaterally in the upper and lower extremity. No lower extremity edema. PULM: Lungs clear to auscultation in all ma. No wheezes, rales, or rhonchi. No conversational dyspnea. No splinting, stridor, or accessory muscle use. GI/: Abdomen is soft and non-tender. Normoactive bowel sounds. EXTREMITIES: Symmetric muscle bulk. No joint swelling. No clubbing, cyanosis, or deformity. SKIN: Warm and dry. Normal turgor. No rash or lesions appreciated. PSYCH: Mood, affect, and interaction is appropriate to the setting. Constitutional Vital Signs, click to edit/add: Last Vital Signs Temp 98.1 F 07/15/24 05:13 Pulse 82 07/15/24 05:40 Resp 20 07/15/24 05:13 BP 158/90 H 07/15/24 09:25 Pulse Ox 95 07/15/24 05:13 O2 Del Method Room Air 07/15/24 05:13 Course Vital Signs Vital signs: Vital Signs Blood Pressure 157/92 H 07/15/24 05:11 Temperature 98.1 F 07/15/24 05:13 Pulse Rate 82 07/15/24 05:40 Respiratory Rate 20 07/15/24 05:13 Blood Pressure 158/90 H 07/15/24 09:25 Pulse Oximetry 95 07/15/24 05:13 Oxygen Delivery Method Room Air 07/15/24 05:13 Medical Decision Making MDM Narrative Medical decision making narrative: 49-year-old female to the emergency department with chief complaint of nausea and vomiting. Vital stable, the patient is afebrile. Her abdominal examination is benign. Basic labs are ordered. Abdominal series is ordered to rule out obstructive process or perforation. Pepcid, Phenergan, Bentyl, Toradol ordered at patient request. Lab work reviewed and is unremarkable. Medical Records Medical records reviewed: Yes I reviewed the patient's medical records Lab Data Lab results reviewed: Yes I reviewed the patient's lab results Labs: Lab Results 07/15/24 Range/Units 05:25 WBC 12.7 H (4.0-11.0) 10^3/uL RBC 5.44 H (4.20-5.40) 10^6/uL Hgb 14.4 (12.0-16.0) g/dL Hct 45.3 (36.0-48.0) % MCV 83.3 (81.0-99.0) fL MCH 26.5 L (26.7-34.0) pg MCHC 31.8 (29.9-35.2) g/dL RDW 14.4 (11.0-15.0) % Plt Count 400 (150-450) 10^3/uL MPV 9.0 L (9.5-13.5) fL Neut % (Auto) 90.1 H (43.0-75.0) % Lymph % (Auto) 8.5 L (20.5-60.0) % [place] % (Auto) 0.8 L (1.7-12.0) % Eos % (Auto) 0.0 L (0.9-7.0) % Baso % (Auto) 0.2 (0.2-2.0) % Neut # (Auto) 11.4 H (1.4-6.5) 10^3/uL Lymph # (Auto) 1.1 L (1.2-3.8) 10^3/uL [place] # (Auto) 0.1 L (0.3-0.8) 10^3/uL Eos # (Auto) 0.0 (0.0-0.7) 10^3/uL Baso # (Auto) 0.0 (0.0-0.1) 10^3/uL Abs Immat Gran (auto) 0.05 H (0.00-0.03) 10^3/uL Imm/Tot Granulo (auto) 0.4 (0.0-0.5) % Sodium 140 (136-145) mmol/L Potassium 4.0 (3.5-5.1) mmol/L Chloride 101 (98-107) mmol/L Carbon Dioxide 27.1 (21.0-32.0) mmol/L Anion Gap 15.9 BUN 8.0 (7.0-18.0) mg/dL Creatinine 0.83 (0.55-1.02) mg/dL Est GFR ( Amer) >60 (>=60 mL/min/1.73m^2) Est GFR (Non-Af Amer) >60 (>=60 mL/min/1.73m^2) BUN/Creatinine Ratio 9.6 Glucose 150 H (74-106) mg/dL Calcium 9.2 (8.5-10.1) mg/dL Total Bilirubin 0.6 (0.2-1.0) mg/dL AST 27 (15-37) U/L ALT 32 (14-59) U/L Alkaline Phosphatase 217 H (46-116) U/L Troponin I High Sens <4.0 L (4.0-51.3) pg/mL Total Protein 9.4 H (6.4-8.2) g/dL Albumin 2.8 L (3.4-5.0) g/dL Globulin 6.6 g/dL Albumin/Globulin Ratio 0.4 Lipase 12.0 L (16.0-77.0) U/L ECG Data Attestation: I personally reviewed and interpreted this ECG as follows: (Normal sinus rhythm at a rate of 81. No STEMI. Normal QTc of 415.) Discharge Plan Discharge Chief Complaint: Abdominal Pain Clinical Impression: Vomiting, Gastritis, Candidal intertrigo Patient Disposition: Home, Self-Care Time of Disposition Decision: 08:56 Condition: Good Mode of Transportation: Private Vehicle Prescriptions / Home Meds: New alum-mag hydroxide-simeth [Maalox Advanced] 200-200-20 mg/5 mL suspension 5 ml PO QID PRN (Reason: abdominal pain) 10 Days Qty: 300 0RF nystatin 100,000 unit/gram powder 1 applic topical BID Qty: 30 0RF No Action diazepam 5 mg tablet 5 mg PO Q8H PRN (Reason: anxiety) furosemide 40 mg tablet 40 mg PO DAILY gabapentin 800 mg tablet 800 mg PO TID oxybutynin chloride 15 mg tablet extended release 24hr 15 mg PO DAILY Effer-K 20 mEq tablet, effervescent 20 meq PO BID tizanidine 4 mg tablet 4 mg PO Q8H PRN (Reason: muscle spasticity) zolpidem 12.5 mg tablet,ext release multiphase 12.5 mg PO DAILY Rx Instructions: HS fluoxetine 10 mg capsule 10 mg PO DAILY ondansetron 4 mg tablet,disintegrating 4 mg PO Q8H PRN (Reason: nausea and vomiting) Qty: 30 0RF nitrofurantoin monohyd/m-cryst [Macrobid] 100 mg capsule 100 mg PO Q12H 7 Days Qty: 14 0RF Rx Instructions: must administer with a meal/food buprenorphine-naloxone 8-2 mg film 2.5 film sublingual Q24H cyclobenzaprine 10 mg tablet 10 mg PO Q8H Print Language: Tajik Instructions: Peptic Ulcer (ED), Acute Nausea and Vomiting (DC) Referrals: Dr Luis Luna [Other] - 1 week Shaikh Obrien MD [Primary Care Provider] - 1 week Discharge Date/Time: 07/15/24 09:27 Documented by User: Deanna Rodriguez MD 07/15/24 09:54 HPI HPI - General Adult General Chief complaint: Abdominal Pain Stated complaint: nausea Time Seen by Provider: 07/15/24 05:13 Related Data Home Medications ?Medication ?Instructions ?Recorded ?Confirmed buprenorphine 8 mg-naloxone 2 mg 2.5 film sublingual Q24H 03/01/23 07/15/24 sublingual film cyclobenzaprine 10 mg tablet 10 mg PO Q8H 03/01/23 07/15/24 diazepam 5 mg tablet 5 mg PO Q8H PRN anxiety 03/30/23 07/15/24 furosemide 40 mg tablet 40 mg PO DAILY 03/30/23 07/15/24 gabapentin 800 mg tablet 800 mg PO TID 03/30/23 07/15/24 oxybutynin chloride 15 mg 15 mg PO DAILY 03/30/23 05/06/24 tablet,extended release 24 hr potassium bicarbonate-citric acid 20 meq PO BID 03/30/23 05/06/24 20 mEq effervescent tablet (Effer-K) tizanidine 4 mg tablet 4 mg PO Q8H PRN muscle spasticity 03/30/23 07/15/24 zolpidem 12.5 mg tablet,extended 12.5 mg PO DAILY 03/30/23 05/06/24 release,multiphase fluoxetine 10 mg capsule 10 mg PO DAILY 05/06/24 07/15/24 Previous Rx's ?Medication ?Instructions ?Recorded ondansetron 4 mg disintegrating 4 mg PO Q8H PRN nausea and 05/07/24 tablet vomiting 0 days #30 tabs nitrofurantoin 100 mg PO Q12H 7 days #14 caps 07/12/24 monohydrate/macrocrystals 100 mg capsule (Macrobid) aluminum-mag hydroxide-simethicone 5 ml PO QID PRN abdominal pain 10 07/15/24 200 mg-200 mg-20 mg/5 mL oral susp days #300 mL (Maalox Advanced) nystatin 100,000 unit/gram topical 1 applic topical BID #30 grams 07/15/24 powder Allergies Allergy/AdvReac Type Severity Reaction Status Date / Time codeine Allergy Severe rash Verified 07/15/24 05:16 Penicillins Allergy Severe Anaphylaxis Verified 07/15/24 05:16 quetiapine (From Seroquel) Allergy Severe Seizure Verified 07/15/24 05:16 Opioid HPI Opioid Management Most Recent Opioid Data: Last Pain Scale 8 11/21/23 09:41 11/21/23 Urine Drug Screen Interp Final (.) 05/14/24 09:30 05/14/24 PFSH PFS Social History Smoking status: Current every day smoker Little interest or pleasure in doing things: not at all Feeling down, depressed, or hopeless: not at all Exam Constitutional Vital Signs, click to edit/add: Last Vital Signs Temp 98.1 F 07/15/24 05:13 Pulse 82 07/15/24 05:40 Resp 20 07/15/24 05:13 BP 158/90 H 07/15/24 09:25 Pulse Ox 95 07/15/24 05:13 O2 Del Method Room Air 07/15/24 05:13 Course Vital Signs Vital signs: Vital Signs Blood Pressure 157/92 H 07/15/24 05:11 Temperature 98.1 F 07/15/24 05:13 Pulse Rate 82 07/15/24 05:40 Respiratory Rate 20 07/15/24 05:13 Blood Pressure 158/90 H 07/15/24 09:25 Pulse Oximetry 95 07/15/24 05:13 Oxygen Delivery Method Room Air 07/15/24 05:13 Medical Decision Making [facility] Narrative Medical decision making narrative: 49-year-old female to the emergency department with chief complaint of nausea and vomiting. Vital stable, the patient is afebrile. Her abdominal examination is benign. Basic labs are ordered. Abdominal series is ordered to rule out obstructive process or perforation. Pepcid, Phenergan, Bentyl, Toradol ordered at patient request. Lab work reviewed and is unremarkable. Dr Rodriguez : Patient care was transferred to [place] at 7 AM KUB with pending and did not show anything acute the patient was requesting a GI cocktail which she was provided with I did explain to the patient that she need to follow-up with gastroenterology as outpatient she was given the information for Dr. Luis luna The patient also was provided with the Maalox to go home with and the statin powder that she requested The patient is to follow up with primary care physician in next 2-3 days or to return to the emergency department should any of the signs or symptoms worsen or new symptoms develop. The patient agrees with the following Diagnosis and Treatment plan and the patient will be discharged home. Clinical impression: Abdominal pain nonspecific Skin Lesa infection Lab Data Labs: Lab Results 07/15/24 Range/Units 05:25 WBC 12.7 H (4.0-11.0) 10^3/uL RBC 5.44 H (4.20-5.40) 10^6/uL Hgb 14.4 (12.0-16.0) g/dL Hct 45.3 (36.0-48.0) % MCV 83.3 (81.0-99.0) fL MCH 26.5 L (26.7-34.0) pg MCHC 31.8 (29.9-35.2) g/dL RDW 14.4 (11.0-15.0) % Plt Count 400 (150-450) 10^3/uL MPV 9.0 L (9.5-13.5) fL Neut % (Auto) 90.1 H (43.0-75.0) % Lymph % (Auto) 8.5 L (20.5-60.0) % [place] % (Auto) 0.8 L (1.7-12.0) % Eos % (Auto) 0.0 L (0.9-7.0) % Baso % (Auto) 0.2 (0.2-2.0) % Neut # (Auto) 11.4 H (1.4-6.5) 10^3/uL Lymph # (Auto) 1.1 L (1.2-3.8) 10^3/uL [place] # (Auto) 0.1 L (0.3-0.8) 10^3/uL Eos # (Auto) 0.0 (0.0-0.7) 10^3/uL Baso # (Auto) 0.0 (0.0-0.1) 10^3/uL Abs Immat Gran (auto) 0.05 H (0.00-0.03) 10^3/uL Imm/Tot Granulo (auto) 0.4 (0.0-0.5) % Sodium 140 (136-145) mmol/L Potassium 4.0 (3.5-5.1) mmol/L Chloride 101 (98-107) mmol/L Carbon Dioxide 27.1 (21.0-32.0) mmol/L Anion Gap 15.9 BUN 8.0 (7.0-18.0) mg/dL Creatinine 0.83 (0.55-1.02) mg/dL Est GFR ( Amer) >60 (>=60 mL/min/1.73m^2) Est GFR (Non-Af Amer) >60 (>=60 mL/min/1.73m^2) BUN/Creatinine Ratio 9.6 Glucose 150 H (74-106) mg/dL Calcium 9.2 (8.5-10.1) mg/dL Total Bilirubin 0.6 (0.2-1.0) mg/dL AST 27 (15-37) U/L ALT 32 (14-59) U/L Alkaline Phosphatase 217 H (46-116) U/L Troponin I High Sens <4.0 L (4.0-51.3) pg/mL Total Protein 9.4 H (6.4-8.2) g/dL Albumin 2.8 L (3.4-5.0) g/dL Globulin 6.6 g/dL Albumin/Globulin Ratio 0.4 Lipase 12.0 L (16.0-77.0) U/L Discharge Plan Discharge Chief Complaint: Abdominal Pain Clinical Impression: Vomiting, Gastritis, Candidal intertrigo Patient Disposition: Home, Self-Care Time of Disposition Decision: 08:56 Condition: Good Mode of Transportation: Private Vehicle Prescriptions / Home Meds: New alum-mag hydroxide-simeth [Maalox Advanced] 200-200-20 mg/5 mL suspension 5 ml PO QID PRN (Reason: abdominal pain) 10 Days Qty: 300 0RF nystatin 100,000 unit/gram powder 1 applic topical BID Qty: 30 0RF No Action diazepam 5 mg tablet 5 mg PO Q8H PRN (Reason: anxiety) furosemide 40 mg tablet 40 mg PO DAILY gabapentin 800 mg tablet 800 mg PO TID oxybutynin chloride 15 mg tablet extended release 24hr 15 mg PO DAILY Effer-K 20 mEq tablet, effervescent 20 meq PO BID tizanidine 4 mg tablet 4 mg PO Q8H PRN (Reason: muscle spasticity) zolpidem 12.5 mg tablet,ext release multiphase 12.5 mg PO DAILY Rx Instructions: HS fluoxetine 10 mg capsule 10 mg PO DAILY ondansetron 4 mg tablet,disintegrating 4 mg PO Q8H PRN (Reason: nausea and vomiting) Qty: 30 0RF nitrofurantoin monohyd/m-cryst [Macrobid] 100 mg capsule 100 mg PO Q12H 7 Days Qty: 14 0RF Rx Instructions: must administer with a meal/food buprenorphine-naloxone 8-2 mg film 2.5 film sublingual Q24H cyclobenzaprine 10 mg tablet 10 mg PO Q8H Print Language: Tajik Instructions: Peptic Ulcer (ED), Acute Nausea and Vomiting (DC) Referrals: Dr Luis Luna [Other] - 1 week Shaikh Obrien MD [Primary Care Provider] - 1 week Discharge Date/Time: 07/15/24 09:27
[2024-07-15] MEDS: lidocaine HCL 15 ML, MAG HYDROX/ALUMINUM HYD/SIMETH 30 ML, HYOSCYAMINE SULFATE 0.25 MG PO (08:44)
[2024-07-15 09:25] VITALS: BP 158/90
== END 2024-07-15 09:27 | disposition home or self-care (01) ==
PROVIDERS: Emergency Provider Student in an Organized Health Care Education/Training Program; PCP Internal Medicine
DX: K29.70 Gastritis, unspecified, without bleeding (principal); R11.10 Vomiting, unspecified; B37.2 Candidiasis of skin and nail
CPT/HCPCS: 36415; 74022; 80053; 83690; 84484; 85025; 93005; 96372; 96374; 96375; 99285; J0500; J1885; J2250

== ENCOUNTER 2024-08-26 06:24 | Observation (INO) | payer BC, MEDICAID, SELFPAY ==
--- NOTE | 2024-08-26 | US_ITS ---
[address] [address] Patient Name: MORALES LEE MRN: [id number] date: 1975 Sex: F Assigned Patient Location: [place] Current Patient Location: [place] Accession/Order Number: [id number] Exam Date: 08/26/2024 12:46 Report Date: 08/27/2024 13:50 At the request of: SHAIKH BIN Procedure: US venous doppler LE LT EXAM: US venous doppler LE LT HISTORY: CELLULITIS COMPARISON: None. TECHNIQUE: Grayscale, color and Doppler FINDINGS: Region: Left leg Thrombus: None Flow: Normal Augmentation: Normal Compressibility: Normal Borderline enlarged left inguinal lymph nodes US/US venous doppler LE LT IMPRESSION: No deep or superficial vein thrombus identified in the left leg Electronically authenticated by: ARIADNA STEWART Date: 08/27/2024 13:50
[2024-08-26 06:26] VITALS: BP 115/65; PULSE 88; TEMP 36.6; O2SAT 97; BMI 32.9
--- OUTSIDE RECORDS SUMMARY | 2024-08-26 06:30 | XMS_ITS | CCD ---
Author Organization [facility] Care Team Providers Care Leaf Sucker Operator Name Role Phone Required, No Pcp Unavailable Unavailable Lex Frederick Unavailable None, No PCP Unavailable Unavailable Unavailable Unavailable SHAIKH OBRIEN Primary Care Physician Yony Aguirre Unavailable Unavailable Neurosurgery Unavailable Unavailable OTONIEL, Dr. LEX DE LOS SANTOS Admitting Unava ilable OTONIEL, Dr. LEX DE LOS SANTOS Attending Unava ilable Patient, Unavailable Referring Unavailable Timothy, Dr. Bhakta Attending Unavailable FAWWAD, MENDOSA H Primary Care Unavailable PÉREZ PATINO Attending Unavailable PÉREZ PATINO Admitting Unavailable JON, DR ABHINAV Livingston Attending Unavailabl e FALUIGID, MENDOSA H Primary Care Unavailable JON, DR ABHINAV Livingston Admitting Unavailabl jacque WEBB, DR ABHINAV Livingston Consulting UnavailDR CLIF Cotton Admitting Unavailable DR CLIF HUTTON Consulting Unavailable FAWWAD, MENDOSA H Primary Care Unavailable URIAH, DR CLIF Santana Attending Unavailable IVON AMARO Admitting Unavailable IVON AMARO Consulting Unavailable FAWWAD, MENDOSA H Primary Care Unavailable IVON AMARO Attending Unavailable EMMANUEL, LALI Admitting Unavailable LALI BENITEZ Consulting Unavailable FAWWAD, MENDOSA H Primary Care Unavailable LALI BENITEZ Attending Unavailable FAWWAD, MENDOSA H Primary Care Unavailable LUE . DANYA M Admitting Unavailable LUE .DANYA M Attending Unavailable FAWWAD, MENDOSA H Primary Care Unavailable LUE ., DANYA M Admitting Unavailable LUE ., DANYA M Consulting Unavailable ZACHERY .DANYA Attending Unavailable JON, DR ABHINAV Livingston Attending Unavailabl e FAWWAD, MENDOSA H Primary Care Unavailable REINECK, DR ABHINAV Livingston Admitting Unavailabl e REINECK, DR ABHINAV Livingston Consulting Unavailabl e VETO ., IVON Admitting Unavailable VETO ., IVON Attending Unavailable [facility] Primary Care Unavailable PATRICK, DEBORAH Aponte Consulting Unavailable [facility] Primary Care Unavailable REINECK, DR ABHINAV Livingston Admitting Unavailabl e REINECK, DR ABHINAV Livingston Consulting Unavailabl e REINECK, DR ABHINAV Livingston Attending Unavailabl e HAY ., DR LOW Admitting Unavailable [facility] Primary Care Unavailable HAY ., DR LOW Attending Unavailable ZIEBER, DR ENRIQUE Santana Consulting Unavailable HAY ., DR LOW Consulting Unavailable LUE ., DANYA M Admitting Unavailable LUE ., DANYA M Attending Unavailable [facility] Primary Care Unavailable [facility] Primary Care Unavailable LUE ., DANYA M Admitting Unavailable LUE ., DANYA M Consulting Unavailable LUE ., DANYA M Attending Unavailable CANDICE MATTA Consulting Unava ilRACHEL Kirk Consulting Unavailable DIAB ., KYRA Admitting Unavailable [facility] Primary Care Unavailable DIAB ., KYRA Attending Unavailable GRECHNY ., BONITA HULL Consulting [facility]availabl e [facility] Unavailable LUE ., DANYA M Admitting Unavailable LUE ., DANYA M Consulting Unavailable LUE ., DANYA Aponte Attending Unavailable PAY ., DR RODRIGUEZ Admitting Unavailable PAY ., DR RODRIGUEZ Consulting Unavailable [facility] Primary Care Unavailable PAY ., DR RODRIGUEZ Attending Unavailable [facility] Primary Care Unavailable REINECK, DR ABHINAV Livingston Admitting Unavailabl e REINECK, DR ABHINAV Livingston Consulting Unavailabl e REINECK, DR ABHINAV Livingston Attending Unavailabl e KORIN STANLEY Consulting Unavailable Otoniel, Dr. Lex De Los Santos Attending Kiana Obrien MD, [facility] Care Provider [facility] Care Unavailable Lue, Danya Aponte. Attending Unavailable SHAIKH OBRIEN Attending Unavailable SHAIKH OBRIEN Attending Unavailable GENNY OROSCO Attending Unavailabl jacque Obrien MD, [place] Primary Care Provider [phone] Kwesi STACY, Genny Unavailable Unallocated , [place] Provider Primary Care Provi marilu Kostas Ching MD Primary Care Provider Allergies Allergy Classification Reported Allergen(s) Allergy Type Date of Onset Reaction(s) Facility Opioid Agonists (1 source) Codeine Drug Allergy Unknown [facility] Penicillins (antibiotic) (1 source) Penicillin Drug Allergy Unknown [facility] QUEtiapine (1 source) QUEtiapine Drug Allergy Unknown [facility] (20 sources) Codeine; Translations: [Codeine] Drug Allergy 6 Hives, Facial Swelling MG-Neurosurger [facility] Work Phone: (20 sources) Penicillins; Translations: [Penicillins] Allergy to drug (finding) Hives, Unknown -Neurosurger [facility] Work Phone: (16 sources) Promethazine; Translations: [promethazine] Drug Allergy 1 Swelling, Unknown [facility] (1 source) QUEtiapine Drug Allergy Seizures [facility] (2 sources) Codeine Drug Allergy 3 [facility] (3 sources) gabapentin; Translations: [Neurontin] Drug Allergy [facility] (1 source) Levamisole Drug Allergy [facility] (1 source) Morphine Drug Allergy 0 [facility] (2 sources) Penicillins Drug allergy (disorder) 3 [facility] (1 source) QUEtiapine Drug Allergy 3 [facility] (7 sources) Penicillins Drug Allergy 3 Hives, GI intolerance [facility] (7 sources) QUEtiapine Drug Allergy 3 Unknown [facility] (1 source) Penicillin Drug Allergy 6 Facial Swelling [facility] (1 source) Phenergan Plain Propensity to adverse reactions to drug 6 Swelling, Facial Swelling [facility] Medications Current Medications Medication Drug Class(es) [...] q12hr, # 2 cap(s), Refills(s) 0, [id number], cm, 07/16/22 10:58:00 EST, Height/Length Dosing, [...] day(s), # 2 tab(s), Refills(s) 0, Pharmacy: [address], 156, cm, 01/06/22 10:53:00 EDT, Height/Length Dosing, 78, kg, 01/06/22 10:53:00 EDT... Start Date: 01/06/22 Stop Date: 01/08/22 Status: Ordered diazePAM 5 mg oral tablet (20 sources) Benzodiazepine Start: 02-13-2024 End: 07-23-2024 take 1 tablet by mouth every eight hours for anxiety diazePAM (Valium) 5 MG tablet Indications: Chronic low back pain, unspecified back pain laterality, unspecified whether sciatica present Take 1 tablet (5 mg) by mouth every 8 (eight) hours if needed for anxiety or muscle spasms 90 tablet 2 04/24/2024 07/23/2024 Active Start: 09-30-2021 End: 12-09-2023 take 1 tablet [...] sodium 50 mg delayed release oral tablet (20 sources) Nonsteroidal Anti-inflammatory Drug Start: 01-01-2021 diclofenac [...] evening and 2 g before bedtime. externally. Active diclofenac topic al 1% topical gel ; 1 milena topical prn Quantity: 0 Refills: 0 Ordered: 12-Dec-2020 Carole Mcdaniel Status: Discontinued Generic Substitution Allowed Voltaren ; 1 tab (s) oral Quantity: 0 Refills: 0 Ordered: 05-Dec-2020 Carole Mcdaniel Status: Discontinued Generic Substitution Allowed docusate sodium 50 mg / sennosides, [facility] 8.6 mg oral tablet (2 sources) Start: [...] Substitution Allowed FLUoxetine 20 mg oral capsule (6 sources) Serotonin Reuptake Inhibitor Start: 02-13-2024 End: 05-13-2024 take 1 capsule by mouth once daily FLUoxetine (PROzac) 20 MG capsule Indications: Moderate episode of recurrent major depressive disorder (CMS/HCC) Take 1 capsule (20 mg) by mouth Daily 90 capsule 02/13/2024 Active Start: 11-07-2022 take 1 capsule by mo uth in the morning FLUoxetine (PROzac) 20 MG capsule Take 1 capsule by mouth in the morning. 0 11/07/2022 Active furosemide 40 mg oral tablet (8 sources) Loop Diuretic Start: 02-13-2024 End: 05-13-2024 take 1 tablet by mouth once daily furosemide (Lasix) 40 MG tablet Indications: Lower extremity edema Take 1 tablet (40 mg) by mouth Daily 90 tablet 02/13/2024 Active take 1 tablet by marlen th every twenty-four hours as needed Lasix 40 MG tablet Take 1 tablet by mout h Daily as needed Leg edema 0 Active [...] oral tablet (20 sources) Anti-epileptic Agent Start: 02-13-2024 End: 05-13-2024 take 1 tablet by mouth in the morning, then take 1 tablet by mouth in the evening, then take 1 tablet by mouth at bedtime gabapentin (Neurontin) 800 MG tablet Indications: Chronic bilateral low back pain without sciatica Take 1 tablet (800 mg) by mouth in the morning and 1 tablet (800 mg) in the evening and 1 tablet (800 mg) before bedtime. 270 tablet 02/13/2024 Active Start: 09-22-2023 End: 12-21-2023 take 1 tablet [...] Start: 01-05-2016 take 2 capsules by m [facility] three times daily Neurontin 100 mg Cap 200 mg = 2 cap(s), Oral, TID, Refills(s) 0 Start Date: 01/05/16 Status: Ordered Start: 04-17-2015 take 1 capsule by mo [facility] three times daily gabapentin (NEURONTIN) 300 mg capsule Take 300 mg by mouth 3 (three) times a day. 04/17/2015 Active take 1 tablet by marlen three times [...] Start: 04-17-2015 take 1 capsule by mo [facility] once daily hydrochlorothiazide (MICROZIDE) 12.5 mg capsule [...] tab(s), Refills(s) 3, [facility]: [facility] [facility], 156, cm, 02/04/22 15:47:00 EDT, Height/Length Dosing, 78, kg, 02/04/22 15:47:00 EDT, Weight Dosing Start Date: 02/25/22 Status: Ordered nystatin 100 unt/mg topical powder (7 sources) Polyene Antifungal Start: 03-07-2023 Nyamyc 924120 UNIT/GM powder Apply 1 application topically in the morning and 1 application in the evening and 1 application before bedtime. To affected area. 03/07/2023 Active omeprazole 40 mg delayed release [...] 30 tab(s), Refills(s) 11, [facility]: [facility][id number], 156, cm, 07/16/22 10:58:00 EST, Height/Length Dosing, 78, kg, 07/16/22 10:58:00 EST, Weight Dosing Start Date: 10/04/22 Status: Ordered Start: 07-16-2022 take 1 tablet by marlen th once daily oxybutynin 10 mg ER Tab 10 mg = 1 tab(s), Oral, Daily, # 30 tab(s), Refills(s) 11, [facility]: [facility][id number], 156, cm, 07/16/22 10:58:00 EST, Height/Length Dosing, 78, kg, 07/16/22 10:58:00 EST, Weight Dosing Start Date: 07/16/22 Status: Ordered Start: 03-10-2022 take 1 tablet by marlen th once daily oxybutynin 10 mg ER Tab 10 mg = 1 tab(s), Oral, Daily, # 30 tab(s), Refills(s) 3, Pharmacy: [address], 156, cm, 02/04/22 15:47:00 EDT, Height/Length [...] 07-Jan-2021 Generic Substitution Allowed polyethylene glycol 3350 82050 mg powder for oral solution (3 sources) [...] Active promethazine hydrochloride 12.5 mg oral tablet (8 sources) Phenothiazine Start: 02-06-2024 take 1 tablet by mouth every eight hours as needed for nausea and vomiting and nausea and nausea promethazine (Phenergan) 12.5 MG tablet Indications: Nausea in adult take 1 tablet by mouth every 8 hours if needed for nausea and vomiting 30 tablet 1 02/06/2024 Active Start: 06-27-2023 End: 10-12-2023 take 1 tablet by mouth every eight hours as needed for nausea and vomiting and nausea and nausea promethazine (Phenergan) 12.5 MG tablet Indications: Nausea in adult Take 1 tablet (12.5 mg) by mouth every 8 (eight) hours if needed for nausea or vomiting 30 tablet 1 10/12/2023 Active psyllium 3400 mg powder for oral suspension (7 sources) psyllium (Metamu cil) 28 % packet Take 1 packet by mouth in the morning. Mix and drink with at least 8 ounces of water or juice.. Active RIGHT AFO (1 source) Start: 2 RIGHT AFO ; - Orthotics to fit- M21.37 Quantity: 1 Refills: 0 Ordered: 23-Sep-2021 Ambrocio Izaguirre Start: 23-Sep-2021 Generic Substitution Allowed tiZANidine 4 mg oral tablet (7 sources) Central alpha-2 Adrenergic Agonist Start: 4 End: 4 take 1 tablet by mouth every eight hours for muscle spasms tiZANidine (Zanaflex) 4 MG tablet Indications: Chronic bilateral low back pain without sciatica Take 1 tablet (4 mg) by mouth every 8 (eight) hours if needed for muscle spasms 270 tablet 02/13/2024 Active Start: 09-22-2023 End: 12-21-2023 take 1 tablet [...] Daily, # 30 cap(s), Refills(s) 0, Pharmacy: [address], 156, cm, 01/07/22 13:43:00 EDT, Height/Length Dosing, 78, kg, 01/06/22 10:53:00 EDT, Weight Dosing Start Date: 01/28/22 Status: Ordered zolpidem tartrate 12.5 mg extended release oral tablet (20 sources) gamma-Aminobutyri c Acid-ergic Agonist Start: 02-13-2024 End: 05-13-2024 take 1 tablet by mouth at bedtime zolpidem CR (Ambien CR) 12.5 MG ER tablet Indications: Psychophysiological insomnia Take 1 tablet (12.5 mg) by mouth at bedtime 30 tablet 2 02/13/2024 Active Start: 09-30-2021 take 1 tablet by [...] # 2 cap(s), Refills(s) 0, [facility]: [id number], 156, cm, 11/26/22 8:15:00 EDT, Height/Length Dosing, [...] Discontinued Generic Substitution Allowed polyethylene glycol 3350 596319 mg / potassium chloride 2970 mg / sodium bicarbonate 6740 mg / sodium chloride 5860 mg / sodium sulfate 08617 mg powder for oral solution (8 sources) Osmotic Laxative Start: 09-29-2021 PEG-3350/Elec trolytes 236 GM Oral Solution Reconstituted TAKE DIRECTED. Quantity: 1 Refills: 0 Ordered: 29-Sep-2021 Sheriff HARKINS, Nasra Start : 29-Sep-2021 Active Prior to colonoscopy Problems Active Problems Problem Classification Problem Date Documented Da te Episodic/Chronic Allergic reactions (1 source) Allergy status to penicillin; Translations: [Allergy status to penicillin] Onset: 2 Episodic Anxiety disorders (2 sources) Anxiety disorder, unspecified; Translations: [Post-traumatic stress disorder, unspecified] Onset: 2 Chronic Chronic ulcer of skin (6 sources) Pressure ulcer of buttock; Translations: [Pressure ulcer of unspecified buttock, unspecified stage] 05-15-2024 Chronic E Codes: Fall (1 source) Fall on same level, unspecified, initial encounter; Translations: [Fall on same level, unspecified, initial encounter] Onset: 2 Episodic Esophageal disorders (1 source) Gastro-esophageal reflux disease without esophagitis; Translations: [Gastro-esophageal reflux disease without esophagitis] Onset: 2 Chronic Essential hypertension (2 sources) Essential (primary) hypertension; Translations: [Essential (primary) hypertension] Onset: 2 Chronic Gastroduodenal ulcer (except hemorrhage) (1 source) Peptic ulcer, site unspecified, unspecified as acute or chronic, without hemorrhage or perforation; Translations: [Peptic ulc, site unsp, unsp as ac or chr, w/o hemor or perf] Onset: 2 Chronic Genitourinary symptoms and ill-defined conditions (20 sources) Unspecified urinary incontinence; Translations: [Incontinence without sensory awareness] Onset: 2 Chronic Joint disorders and dislocations; trauma-related (10 sources) Dislocation of lumbar facet joint; Translations: [Closed dislocation, lumbar vertebra] Episodic Miscellaneous mental health disorders (8 sources) Psychophysiologic insomnia; Translations: [Psychophysiologic insomnia] Onset: 4 02-13-2024 Chronic Mood disorders (16 sources) Depressive disorder; Translations: [Major depressive disorder, single episode, unspecified] Onset: 2 02-21-2014 Chronic Mood disorders (2 sources) Mood disorders; Translations: [Depression, unspecified] Onset: 2 Nausea and vomiting (4 sources) Nausea; Translations: [Nausea] Onset: 3 Episodic Other acquired deformities (18 sources) Kyphosis of thoracic spine; Translations: [Kyphosis (acquired) (postural)] Onset: 3 12-27-2020 Chronic Other acquired deformities (20 sources) Acquired kyphosis; Translations: [Kyphosis (acquired) (postural)] Chronic Other acquired deformities (17 sources) Scoliosis of lumbar spine; Translations: [Scoliosis [and kyphoscoliosis], idiopathic] Onset: 3 11-01-2023 Chronic Other acquired deformities (10 sources) Kyphosis deformity of spine; Translations: [Kyphosis associated with other conditions] Chronic Other acquired deformities (10 sources) Acquired deformity of spine; Translations: [Other curvatures of spine] Chronic Other acquired deformities (3 sources) Unspecified kyphosis, thoracic region; Translations: [Unspecified kyphosis, thoracic region] Onset: 2 Chronic Other acquired deformities (6 sources) Kyphoscoliosis deformity of spine; Translations: [Scoliosis, unspecified] Onset: 4 11-01-2023 Chronic Other acquired deformities (6 sources) Kyphosis of thoracolumbar spine; Translations: [Unspecified kyphosis, thoracolumbar region] Onset: 3 11-01-2023 Chronic Other aftercare (2 sources) Other m[facility]p (current) drug therapy; Translations: [Other m[facility]p (current) drug therapy] Onset: 2 Episodic Other congenital anomalies (11 sources) Congenital anomaly of spine; 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, unspecified] Chronic Other connective tissue disease (7 sources) History of fusion of thoracic spine; Translations: [Arthrodesis status] Episodic Other connective tissue disease (7 sources) History of lumbar fusion; Translations: [Arthrodesis status] Episodic Other connective tissue disease (1 source) Arthrodesis status; Translations: [Arthrodesis status] Onset: 2 Episodic Other diseases of bladder and urethra (1 source) Neurogenic dysfunction of the urinary bladder; Translations: [Neuromuscular dysfunction of bladder, unspecified] Onset: 2 Chronic Other diseases of bladder and urethra (1 source) Neuromuscular dysfunction of bladder, unspecified; Translations: [NEUROMUSCULR DYSFNCTION BLADDER UNS] Onset: 2 Chronic Other diseases of bladder and urethra (4 sources) Incompetent urethral closure mechanism; 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)] Onset: 2 Episodic Other gastrointestinal disorders (1 source) Incontinence of feces; Translations: [Full incontinence of feces] Onset: 2 Episodic Other gastrointestinal disorders (2 sources) Constipation, unspecified; Translations: [CONSTIPATION UNSPECIFIED] Onset: 2 Episodic Other nervous system disorders (18 sources) Spinal cord compression; Translations: [Unspecified disease of spinal cord] Onset: 7 12-08-2016 Chronic Other nervous system disorders (2 sources) Other chronic pain; Translations: [Other chronic pain] Onset: 2 Chronic Other nervous system disorders (1 source) Lesion of ulnar nerve, bilateral upper limbs; Translations: [Lesion of ulnar nerve, bilateral upper limbs] Onset: 2 Chronic Other nervous system disorders (1 source) Difficulty in walking, not elsewhere classified; Translations: [Difficulty in walking, not elsewhere classified] Onset: 2 Chronic Other nervous system disorders (1 source) Polyneuropathy, unspecified; Translations: [Polyneuropathy, unspecified] Onset: 2 Chronic Other nervous system disorders (7 sources) Spinal cord disease; Translations: [Disease of spinal cord, unspecified] Onset: 7 12-08-2016 Chronic Other nervous system disorders (6 sources) Walking disability; Translations: [Difficulty in walking, not elsewhere classified] Onset: 4 11-01-2023 Chronic Other nervous system disorders (11 sources) H/O: Disorder; Translations: [Personal history of other disorders of nervous system and sense organs] Episodic Other nutritional; endocrine; and metabolic disorders (1 source) Obese class I; Translations: [Body mass index (BMI) 32.0-32.9, adult] Onset: 2 Chronic Other nutritional; endocrine; and metabolic disorders (13 sources) Body mass index 30+ - obesity; Translations: [Body mass index (BMI) 32.0-32.9, adult] Onset: 4 02-04-2022 Chronic Other nutritional; endocrine; and metabolic disorders (1 source) Body mass index (BMI) 40.0-44.9, adult; Translations: [Body mass index [BMI] 40.0-44.9, adult] Onset: 2 Chronic Other nutritional; endocrine; and metabolic disorders (1 source) Obesity, unspecified; Translations: [Obesity, unspecified] Onset: 2 Chronic Other screening for suspected conditions (not mental disorders or infectious disease) (14 sources) Patient encounter status; Translations: [Special screening for malignant neoplasms of colon] Onset: 4 05-15-2024 Episodic Other skin disorders (1 source) Disorder of the skin and subcutaneous tissue, unspecified; Translations: [DISORDER SKIN AND SUBQ TISSUE UNS] Onset: 3 Episodic Residual codes; unclassified (8 sources) Dependence on wheelchair; Translations: [Dependence on wheelchair] Onset: 4 11-01-2023 Chronic Residual codes; unclassified (5 sources) At risk of disease; Translations: [Other specified conditions influencing health status] Episodic Residual codes; unclassified (9 sources) Chronic back pain 01-05-2016 Episodic Residual codes; unclassified (6 sources) At risk of apnea; Translations: [Other specified conditions influencing health status] Episodic Residual codes; unclassified (1 source) Other specified postprocedural states; Translations: [Other specified postprocedural states] Onset: 2 Episodic Residual codes; unclassified (2 sources) Acquired absence of both cervix and uterus; Translations: [Acquired absence of both cervix and uterus] Onset: 2 Episodic Residual codes; unclassified (1 source) Acquired absence of other specified parts of digestive tract; Translations: [ACQ ABSENCE OTH PART DIGESTV TRACT] Onset: 3 Episodic Spondylosis; intervertebral disc disorders; other back problems (20 sources) Thoracic myelopathy; Translations: [Spondylosis with myelopathy, thoracic region] Onset: 7 12-26-2020 Chronic Substance-related disorders (20 sources) History of drug abuse; Translations: [Other, mixed, or unspecified drug abuse, in remission] Onset: 2 01-05-2016 Chronic Comment on above: Added secondary [...] unspecified; Translations: [Low back pain, unspecified] Onset: 2 Unclassified (1 source) Contact with and (suspected) exposure to COVID-19; Translations: [Contact with and (suspected) exposure to COVID-19] Onset: 2 Unclassified (1 source) CONTACT W/AND (SUSP) EXPOS COVID-19; Translations: [CONTACT W/AND (SUSP) EXPOS COVID-19] Onset: 2 Viral infection (15 sources) Genital herpes simplex; Translations: [Herpesviral infection of urogenital system, unspecified] Onset: 01-05-2016 Chronic Past or Other Problems Problem [...] HOT DRINKS INITIAL ENC] Onset: 03-09-2022 Episodic Genitourinary symptoms and ill-defined conditions (20 sources) History of urinary tract infection; Translations: [Personal history of urinary (tract) infections] Onset: 01-06-2022 Episodic Intestinal obstruction without hernia (1 source) Ileus, unspecified; Translations: [Ileus, unspecified] Onset: 10-02-2021 Episodic Other acquired deformities (16 sources) Acquired deformity of spine; Translations: [Other acquired deformity of back or spine] Onset: 06-13-2023 11-01-2023 Episodic Other circulatory disease (1 source) Hypotension, unspecified; Translations: [Hypotension, unspecified] Onset: 10-02-2021 Episodic Other connective tissue disease (15 sources) Fibromyositis; Translations: [Fibromyalgia] Onset: 11-01-2023 01-05-2016 Episodic Other connective tissue disease (1 source) Fibromyalgia; Translations: [FIBROMYALGIA] Onset: 09-10-2022 Episodic Other connective tissue disease (6 sources) Spasm of cervical paraspinous muscle; Translations: [Other muscle spasm] Onset: 06-20-2019 11-01-2023 Episodic Other diseases of bladder and urethra (13 sources) Urethral intrinsic sphincter deficiency; 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)] Onset: 11-01-2023 07-16-2022 Episodic Other fractures (17 sources) Compression fracture of lumbar spine; Translations: [Late effect of fracture of spine and trunk without mention of spinal cord lesion] Onset: 06-13-2023 11-01-2023 Episodic Other gastrointestinal disorders (1 source) Other constipation; Translations: [Other constipation] Onset: 10-02-2021 Episodic Other injuries and conditions due to external causes (1 source) History of falling; Translations: [History of falling] Onset: 10-02-2021 Episodic Other nervous system disorders (17 sources) Abnormal gait; Translations: [Abnormality of gait] Onset: 06-13-2023 11-01-2023 Episodic Other nervous system disorders (1 source) Atypical facial pain; Translations: [ATYPICAL FACIAL PAIN] Onset: 06-01-2022 Episodic Other upper respiratory infections (6 sources) Acute upper respiratory infection; Translations: [Acute upper respiratory infection, unspecified] Onset: 02-13-2024 02-13-2024 Episodic Residual codes; unclassified (1 source) Acquired absence of other organs; Translations: [Acquired absence of other organs] Onset: 10-02-2021 Episodic Residual codes; unclassified (6 sources) Harmful pattern of use of nicotine; Translations: [Tobacco use] Onset: 06-20-2019 11-01-2023 Episodic Residual codes; unclassified (6 sources) Edema of lower extremity; Translations: [Localized edema] Onset: 02-13-2024 02-13-2024 Episodic Screening and history of mental health and substance abuse codes (1 source) Personal history of nicotine dependence; Translations: [PERSONAL HISTORY OF NICOTINE DEPEND] Onset: 10-18-2022 Episodic Spondylosis; intervertebral disc disorders; other back problems (20 sources) Spinal stenosis; Translations: [Spinal stenosis, thoracic region] Onset: 05-18-2011 06-06-2022 Episodic Comment on above: BACK PAIN Substance-related disorders (1 source) Cannabis use, unspecified, uncomplicated; Translations: [Cannabis use, unspecified, uncomplicated] Onset: 10-02-2021 Episodic Unclassified (4 sources) compression fractures( Confirmed ) 10-27-2011 Unclassified (5 sources) compression fractures 10-27-2011 Urinary tract infections (8 sources) Urinary tract infection, site not specified; Translations: [Recurrent urinary tract infection] Onset: 05-10-2022 02-13-2024 Episodic Results Test Name Value Interpretation Reference Range Facility COMPLIANCE DRUG ANALYSIS, UR on 05-22-2024 SUMMARY REPORT (SUMMARY) FINAL . [facility] Comment on above: ======= TOXASSURE COMP DRUG ANALYSIS,UR ======= Test Result Flag Units Drug Present Diazepam 22 ng/mg creat Desmethyldiazepam 425 ng/mg creat Oxazepam >1887 ng/mg creat Temazepam >1887 ng/mg creat Presence of diazepam indicates use of this drug; source of diazepam is a scheduled prescription medication. Desmethyldiazepam, oxazepam, and temazepam are expected metabolites of diazepam; but there are also other sources of these compounds. Buprenorphine 434 ng/mg creat Norbuprenorphine >943 ng/mg creat Source of buprenorphine is a scheduled prescription medication. Norbuprenorphine is an expected metabolite of buprenorphine. Gabapentin PRESENT Tizanidine PRESENT Promethazine PRESENT ======= Test Result Flag Units Ref Range Creatinine 106 mg/dL >=20 ======= Declared Medications: Medication list was not provided. ======= For clinical consultation, please call . ======= Performed at: [facility] [address] [place] [address] [phone] [employer]: Neli Kearney [facility], Phone: [phone] Specimen Comment: ToxAssure, [employer] FLEX or MAT drug testin Specimen Comment: -Technical component - Data analysis performed at Specimen Comment: [facility], [address] [place] [address] Specimen Comment: [phone] [employer] James Barrera MD. [facility] Drugs of abuse panel Screen (U)on 05-18-2024 Amphetamines Ql (U) N [facility] Barbiturates Ql (U) N [facility] Benzodiazepines Ql (U) P [facility] Benzoylecgonine Ql (U) N [facility] Carboxy tetrahydrocannabinol (Mec) [Mass/Mass] N [facility] Interpretation and review of laboratory results Abnormal [facility] Methadone (U) [Mass/Vol] N [facility] Methylenedioxymethamphet amine Screen Ql (U) N [facility] Morphine (U) [Mass/Vol] N N [facility] Opiates Ql (U) N [facility] oxyCODONE Ql (U) P [facility] Phencyclidine Ql (U) N [facility] Reference Lab Test ID P [facility] Tricyclic antidepressants [Mass/Vol] N [facility] Outside Recordson 12-28-2023 Outside Records [id number] Normal [facility] Physician Orderon 12-14-2023 Physician Order [id number]#1.00TIFF [facility] [place] ED Note-Physicianon 03-14-20 ED Note-Physician [id number]#1.00CD:12 7 Normal [facility] ED Note-Physicianon 01-23-20 ED Note-Physician [id number]#1.00CD:12 7 Normal [facility] ED Note-Physician [id number]#1.00CD:12 7 [facility] [place] Lab Reportson 01-22-2023 Lab Reports [id number]#1.00CD:12 7 [facility] [place] Patient Correspondenceon Patient Correspondence [id number]#1.00CD:12 7 [facility] [place] CULTURE URINEon 01-16-2023 CULTURE URINE Isolate 1 [...] Nitrofurantoin <=16 S F Normal [facility] Comment on above: Performed By: #### U MICRO, ERUR #### [facility] [address] [place] [address] Dr. Alfredo Lizama CBC AUTO DIFFon 01-13-2023 BASO # 0.1 103/ul Normal 0.0-0.1 [facility] Comment on above: Performed By: #### U MICRO, ERUR #### [facility] [address] [place] [address] Dr. Alfredo Lizama Basophils/100 WBC (Bld) 0.7 % Normal 0.2-2.0 [facility] Comment on above: Performed By: #### U MICRO, ERUR #### [facility] [address] [place] [address] Dr. Alfredo Lizama EO # 0.3 103/ul Normal 0.0-0.7 [facility] Comment on above: Performed By: #### U MICRO, ERUR #### [facility] [address] [place] [address] Dr. Alfredo Lizama Eosinophils/100 WBC (Bld) 3.2 % Normal 0.9-7.0 [facility] Comment on above: Performed By: #### U MICRO, ERUR #### [facility] [address] [place] [address] Dr. Alfredo Lizama Erythrocyte distribution width (RBC) [Ratio] 13.0 % Normal 11.0-15.0 [facility] Comment on above: Performed By: #### U MICRO, ERUR #### [facility] [address] [place] [address] Dr. Alfredo Lizama Hematocrit (Bld) [Volume fraction] 43.2 % Normal 36.0-48.0 [facility] Comment on above: Performed By: #### U MICRO, ERUR #### [facility] [address] [place] [address] Dr. Alfredo Lizama Hemoglobin (Bld) [Mass/Vol] 14.1 g/dL Normal 12.0-16.0 [facility] Comment on above: Performed By: #### U MICRO, ERUR #### [facility] [address] [place] [address] Dr. Alfredo Lizama IG # 0.02 10e3/ul Normal 0.00-0.03 [facility] Comment on above: Performed By: #### U MICRO, ERUR #### [facility] [address] [place] [address] Dr. Alfredo Lizama IG % 0.2 % Normal 0.0-0.5 [facility] Comment on above: Performed By: #### U MICRO, ERUR #### [facility] [address] [address] [address] Alfredo Lizama LYMPH # 3.0 103/ul Normal 1.2-3.8 [facility] Comment on above: Performed By: #### U MICRO, ERUR #### [facility] [address] [place] [address] Dr. Alfredo Lizama Lymphocytes/100 WBC (Bld) 35.6 % Normal 20.5-60.0 [facility] Comment on above: Performed By: #### U MICRO, ERUR #### [facility] [address] [place] [address] Dr. Alfredo Lizama MANUAL DIFF REQ NO Normal [facility] Comment on above: Performed By: #### U MICRO, ERUR #### [facility] [address] [place] [address] Dr. Alfredo Lizama MCH (RBC) [Entitic mass] 29.4 pg Normal 26.7-34.0 [facility] Comment on above: Performed By: #### U MICRO, ERUR #### [facility] [address] [place] [address] Dr. Alfredo Lizama MCHC (RBC) [Mass/Vol] 32.6 g/dL Normal 29.9-35.2 [facility] Comment on above: Performed By: #### U MICRO, ERUR #### [facility] [address] [place] [address] Dr. Alfredo Lizama MCV (RBC) [Entitic vol] 90.0 fL Normal 81.0-99.0 [facility] Comment on above: Performed By: #### U MICRO, ERUR #### [facility] [address] [place] [address] Dr. Alfredo Lizama MONO # 0.4 103/ul Normal 0.3-0.8 [facility] Comment on above: Performed By: #### U MICRO, ERUR #### [facility] [address] [place] [address] Dr. Alfredo Lizama Monocytes/100 WBC (Bld) 4.8 % Normal 1.7-12.0 [facility] Comment on above: Performed By: #### U MICRO, ERUR #### [facility] [address] [address] [address] Alfredo Lizama NEUT # 4.7 103/ul Normal 1.4-6.5 [facility] Comment on above: Performed By: #### U MICRO, ERUR #### [facility] [address] [address] [address] Alfredo Lizama Neutrophils/100 WBC (Bld) 55.5 % Normal 43.0-75.0 [facility] Comment on above: Performed By: #### U MICRO, ERUR #### [facility] [address] [address] [address] Alfredo Lizama Platelet mean volume (Bld) [Entitic vol] 9.5 fL Normal 9.5-13.5 [facility] Comment on above: Performed By: #### U MICRO, ERUR #### [facility] [address] [address] [address] Alfredo Lizama PLT 267 103/ul Normal 150-450 [facility] Comment on above: Performed By: #### U MICRO, ERUR #### [facility] [address] [place] [address] Dr. Alfredo Lizama RBC 4.80 106/ul Normal 4.20-5.40 [facility] Comment on above: Performed By: #### U MICRO, ERUR #### [facility] [address] [address] [address] Alfredo Lizama WBC 8.5 103/ul Normal 4.0-11.0 [facility] Comment on above: Performed By: #### U MICRO, ERUR #### [facility] [address] [address] [address] Alfredo Lizama ER URINE PROFILEon 3 Bilirubin Ql (U) Negative Normal NEGATIVE [facility] Comment on above: Performed By: #### E RUR UMICRO #### [facility] [address] [place] [address] Dr. Alfredo Lizama Clarity (U) CLOUDY Abnormal CLEAR [facility] Comment on above: Performed By: #### Jacque ESTRADA UMICRO #### [facility] [address] [place] [address] Dr. Alfredo Lizama Color (U) YELLOW Normal YELLOW [facility] Comment on above: Performed By: #### Jacque ESTRADA UMICRO #### [facility] [address] [place] [address] Dr. Alfredo Lizama ERUAHD A micrscopic examina tion will be performed if indicated. Normal [facility] Comment on above: Performed By: #### Jacque ESTRADA UMICRO #### [facility] [address] [place] [address] Dr. Alfredo Lizama Glucose Ql (U) Negative Normal NEGATIVE [facility] Comment on above: Performed By: #### Jacque ESTRADA UMICRO #### [facility] [address] [place] [address] Dr. Alfredo Lizama Hemoglobin Ql (U) MODERATE Abnormal NEGATIVE [facility] Comment on above: Performed By: #### Jacque ESTRADA UMICRO #### [facility] [address] [place] [address] Dr. Alfredo Lizama Ketones Ql (U) TRACE Abnormal NEGATIVE [facility] Comment on above: Performed By: #### Jacque ESTRADA UMICRO #### [facility] [address] [place] [address] Dr. Alfredo Lizama LEUKOCYTES SMALL Abnormal NEGATIVE [facility] Comment on above: Performed By: #### Jacque ESTRADA UMICRO #### [facility] [address] [place] [address] Dr. Alfredo Lizama Nitrite Ql (U) Negative Normal NEGATIVE [facility] Comment on above: Performed By: #### Jacque ESTRADA UMICRO #### [facility] [address] [place] [address] Dr. Alfredo Lizama pH (U) 8.0 [pH] Normal 5-9 [facility] Comment on above: Performed By: #### Jacque ESTRADA UMICRO #### [facility] [address] [place] [address] Dr. lAfredo Lizama Protein (U) [Mass/Vol] 100 mg/dL Abnormal NEGAT LATISHA/ TRACE [facility] Comment on above: Performed By: #### CHINMAY CHAVESRO #### [facility] [address] [place] [address] Dr. Alfredo Lizama SPEC GRAVITY 1.015 Normal 1.005-<=1. 025 [facility] Comment on above: Performed By: #### Jacque ESTRADA UMICRO #### [facility] [address] [place] [address] Dr. Alfredo Lizama UR MICRO IND INDICATED Normal [facility] Comment on above: Performed By: #### CHINMAY CHAVESRO #### [facility] [address] [place] [address] Dr. Alfredo Lizama Urobilinogen Qn (U) 1.0 {Tesha'U}/dL Normal 0.2 - 1. 0 [facility] Comment on above: Performed By: #### CHINMAY CHAVESRO #### [facility] [address] [place] [address] Dr. Alfredo Lizama PROF CHEM 8 (BAS METB)on Anion gap [Moles/Vol] 8.4 mmol/L Normal [facility] Comment on above: Performed By: #### U MICRO, ERUR #### [facility] [address] [place] [address] Dr. Alfredo Lizama Calcium [Mass/Vol] 8.7 mg/dL Normal 8.5-10.1 [facility] Comment on above: Performed By: #### U MICRO, ERUR #### [facility] [address] [place] [address] Dr. Alfredo Lizama Chloride [Moles/Vol] 107 mmol/L Normal 98-107 [facility] Comment on above: Performed By: #### U MICRO, ERUR #### [facility] [address] [place] [address] Dr. Alfredo Lizama CO2 [Moles/Vol] 28.3 mmol/L Normal 21.0-32.0 [facility] Comment on above: Performed By: #### U MICRO, ERUR #### [facility] [address] [address] [address] Alfredo Lizama Creatinine [Mass/Vol] 0.70 mg/dL Normal 0.55-1.02 [facility] Comment on above: Performed By: #### U MICRO, ERUR #### [facility] [address] [address] [address] Alfredo Lizama EGFR-AF GUINEAN >60 Normal >=60 [facility] Comment on above: Performed By: #### U MICRO, ERUR #### [facility] [address] [address] [address] Alfredo Lizama EGFR-NON AF GUINEAN >60 Normal >=60 [facility] Comment on above: Performed By: #### U MICRO, ERUR #### [facility] [address] [address] [address] Alfredo Lizama Glucose [Mass/Vol] 97 mg/dL Normal 74-106 [facility] Comment on above: Performed By: #### U MICRO, ERUR #### [facility] [address] [address] [address] Alfredo Lizama Potassium [Moles/Vol] 3.7 mmol/L Normal 3.5-5.1 [facility] Comment on above: Performed By: #### U MICRO, ERUR #### [facility] [address] [address] [address] Alfredo Lizama Sodium [Moles/Vol] 140 mmol/L Normal 136-145 [facility] Comment on above: Performed By: #### U MICRO, ERUR #### [facility] [address] [address] [address] Alfredo Lizama Urea nitrogen [Mass/Vol] 7.0 mg/dL Normal 7.0-18.0 [facility] Comment on above: Performed By: #### U MICRO, ERUR #### [facility] [address] [address] [address] Alfredo Lizama Urea nitrogen/Creatinine [Mass ratio] 10.0 mg/mg Normal [facility] Comment on above: Performed By: #### U MICRO, ERUR #### [facility] [address] [address] [address] Alfredo Lizama URINE MICROSCOPIC ONLYon AMORPHOUS CRYSTALS FEW Normal [facility] Comment on above: Performed By: #### Jacque ESTRADA UMICRO #### [facility] [address] [place] [address] Dr. Alfredo Lizama BACTERIA LARGE Abnormal NONE SEEN [facility] Comment on above: Performed By: #### Jacque ESTRADA UMICRO #### [facility] [address] [place] [address] Dr. Alfredo Lizama Bacteria identified Cx Nom (U) INDICATED Normal [facility] Comment on above: Performed By: #### Jacque ESTRADA UMICRO #### [facility] [address] [place] [address] Dr. Alfredo Lizama CAST NONE SEEN Normal NONE SEEN [facility] Comment on above: Performed By: #### Jacque ESTRADA UMICRO #### [facility] [address] [place] [address] Dr. Alfredo Lizama Crystals LM Nom (Urine sed) SEEN Abnormal NONE SEEN [facility] Comment on above: Performed By: #### Jacque ESTRADA UMICRO #### [facility] [address] [place] [address] Dr. Alfredo Lizama Epithelial cells LM Ql (Urine sed) RARE Normal NONE SEEN /RARE [facility] Comment on above: Performed By: #### Jacque ESTRADA UMICRO #### [facility] [address] [place] [address] Dr. Alfredo Lizama MUCOUS NONE SEEN Normal NONE SEEN [facility] Comment on above: Performed By: #### Jacque ESTRADA UMICRO #### [facility] [address] [place] [address] Dr. Alfredo Lizama RBC 2-5 Abnormal 0-2 [facility] Comment on above: Performed By: #### Jacque ESTRADA UMICRO #### [facility] [address] [place] [address] Dr. Alfredo Lizama TRIPLE PHOS CRYSTALS FEW Normal [facility] Comment on above: Performed By: #### LINDA CHAVES #### [facility] [address] [address] [address] Alfredo Lizama WBC 75-100 Abnormal NONE SEEN [facility] Comment on above: Performed By: #### LINDA CHAVES #### [facility] [address] [place], [place] [address] Dr. Alfredo Lizama Patient Letter FTon 2022 Patient Letter [facility] (Inserted Image. Shelly ble to display) January 10, 2023 MORALES LEE [address] [place] [address] MORALES LEE 1975 Dear Morales, I am corresponding with you by certified mail because of repeat non compliance. You missed your catheter exchange appointment on 12/31/22. It is recommended your Alvares catheter be exchanged every 4 weeks to prevent encrustation and infection. Also you were referred to Dr Zhang at [facility] for further evaluation regarding your condition [...] Danya Bingham MD [facility] [address] [facility], [place] [address] [facility] CULTURE URINEon 12-25-2022 CULTURE URINE Isolate 1 [...] >=8 R F Nitrofurantoin <=16 S F Trimethoprim/Sulfamethoxa zole <=20 S F Normal [facility] Comment on above: Performed By: #### U MICRO, ERUR #### [facility] [address] [place] [address] Dr. Alfredo Lizama AMYLASEon 11-09-2022 Amylase [Catalytic activity/Vol] 14 U/L Critically low 25-115 [facility] Comment on above: Performed By: #### U MICRO, ERUR #### [facility] [address] [place] [address] Dr. Alfredo Lizama CBC AUTO DIFFon 11-09-2022 BASO # 0.1 103/ul Normal 0.0-0.1 [facility] Comment on above: Performed By: #### U MICRO, ERUR #### [facility] [address] [place] [address] Dr. Alfredo Lizama Basophils/100 WBC (Bld) 0.8 % Normal 0.2-2.0 [facility] Comment on above: Performed By: #### U MICRO, ERUR #### [facility] [address] [place] [address] Dr. Alfredo Lizama EO # 0.2 103/ul Normal 0.0-0.7 [facility] Comment on above: Performed By: #### U MICRO, ERUR #### [facility] [address] [place] [address] Dr. Alfredo Lizama Eosinophils/100 WBC (Bld) 2.5 % Normal 0.9-7.0 [facility] Comment on above: Performed By: #### U MICRO, ERUR #### [facility] [address] [place] [address] Dr. Alfredo Lizama Erythrocyte distribution width (RBC) [Ratio] 12.7 % Normal 11.0-15.0 [facility] Comment on above: Performed By: #### U MICRO, ERUR #### [facility] [address] [place] [address] Dr. Alfredo Lizama Hematocrit (Bld) [Volume fraction] 46.3 % Normal 36.0-48.0 [facility] Comment on above: Performed By: #### U MICRO, ERUR #### [facility] [address] [place] [address] Dr. Alfredo Lizama Hemoglobin (Bld) [Mass/Vol] 15.9 g/dL Normal 12.0-16.0 [facility] Comment on above: Performed By: #### U MICRO, ERUR #### [facility] [address] [place] [address] Dr. Alfredo Lizama IG # 0.02 10e3/ul Normal 0.00-0.03 [facility] Comment on above: Performed By: #### U MICRO, ERUR #### [facility] [address] [place] [address] Dr. Alfredo Lizama IG % 0.2 % Normal 0.0-0.5 [facility] Comment on above: Performed By: #### U MICRO, ERUR #### [facility] [address] [place] [address] Dr. Alfredo Lizama LYMPH # 2.6 103/ul Normal 1.2-3.8 [facility] Comment on above: Performed By: #### U MICRO, ERUR #### [facility] [address] [place] [address] Dr. Alfredo Lizama Lymphocytes/100 WBC (Bld) 31.3 % Normal 20.5-60.0 [facility] Comment on above: Performed By: #### U MICRO, ERUR #### [facility] [address] [place] [address] Dr. Alfredo Lizama MANUAL DIFF REQ NO Normal [facility] Comment on above: Performed By: #### U MICRO, ERUR #### [facility] [address] [place] [address] Dr. Alfredo Lizama MCH (RBC) [Entitic mass] 29.3 pg Normal 26.7-34.0 [facility] Comment on above: Performed By: #### U MICRO, ERUR #### [facility] [address] [place] [address] Dr. Alfredo Lizama MCHC (RBC) [Mass/Vol] 34.3 g/dL Normal 29.9-35.2 [facility] Comment on above: Performed By: #### U MICRO, ERUR #### [facility] [address] [address] [address] Alfredo Lizama MCV (RBC) [Entitic vol] 85.4 fL Normal 81.0-99.0 [facility] Comment on above: Performed By: #### U MICRO, ERUR #### [facility] [address] [place] [address] Dr. Alfredo Lizama MONO # 0.6 103/ul Normal 0.3-0.8 [facility] Comment on above: Performed By: #### U MICRO, ERUR #### [facility] [address] [place] [address] Dr. Alfredo Lizama Monocytes/100 WBC (Bld) 6.6 % Normal 1.7-12.0 [facility] Comment on above: Performed By: #### U MICRO, ERUR #### [facility] [address] [place] [address] Dr. Alfredo Lizama NEUT # 4.9 103/ul Normal 1.4-6.5 [facility] Comment on above: Performed By: #### U MICRO, ERUR #### [facility] [address] [place] [address] Dr. Alfredo Lizama Neutrophils/100 WBC (Bld) 58.6 % Normal 43.0-75.0 [facility] Comment on above: Performed By: #### U MICRO, ERUR #### [facility] [address] [place] [address] Dr. Alfredo Lizama Platelet mean volume (Bld) [Entitic vol] 9.5 fL Normal 9.5-13.5 [facility] Comment on above: Performed By: #### U MICRO, ERUR #### [facility] [address] [place] [address] Dr. Alfredo Lizama PLT 273 103/ul Normal 150-450 [facility] Comment on above: Performed By: #### U MICRO, ERUR #### [facility] Laboratory [address] [place] [address] Dr. Alfredo Lizama RBC 5.42 106/ul Critically high 4.20-5.40 [facility] Comment on above: Performed By: #### U MICRO, ERUR #### [facility] [address] [place] [address] Dr. Alfredo Lizama WBC 8.4 103/ul Normal 4.0-11.0 [facility] Comment on above: Performed By: #### U MICRO, ERUR #### [facility] [address] [place] [address] Dr. Alfredo Lizama CULTURE URINEon 11-09-2022 CULTURE URINE Culture Observations : MODERATE GROWTH OF MIXED GENITAL ROSANNA. NO POTENTIAL PATHOGENS SEEN. Normal [facility] Comment on above: Performed By: #### U MICRO, ERUR #### [facility] [address] [place] [address] Dr. Alfredo Lizama ER URINE PROFILEon 3 Bilirubin Ql (U) Negative Normal NEGATIVE [facility] Comment on above: Performed By: #### U MICRO, ERUR #### [facility] [address] [place] [address] Dr. Alfredo Lizama Clarity (U) CLEAR Normal CLEAR [facility] Comment on above: Performed By: #### U MICRO, ERUR #### [facility] [address] [place] [address] Dr. Alfredo Lizama Color (U) LT. YELLOW Normal YELLOW [facility] Comment on above: Performed By: #### U MICRO, ERUR #### [facility] [address] [place] [address] Dr. Alfredo Lizama ERUAHD A micrscopic examina tion will be performed if indicated. Normal [facility] Comment on above: Performed By: #### U MICRO, ERUR #### [facility] [address] [place] [address] Dr. Alfredo Lizama Glucose Ql (U) Negative Normal NEGATIVE [facility] Comment on above: Performed By: #### U MICRO, ERUR #### [facility] [address] [place] [address] Dr. Alfredo Lizama Hemoglobin Ql (U) MODERATE Abnormal NEGATIVE [facility] Comment on above: Performed By: #### U MICRO, ERUR #### [facility] [address] [place] [address] Dr. Alfredo Lizama Ketones Ql (U) Negative Normal NEGATIVE [facility] Comment on above: Performed By: #### U MICRO, ERUR #### [facility] [address] [place] [address] Dr. Alfredo Lizama LEUKOCYTES LARGE Abnormal NEGATIVE [facility] Comment on above: Performed By: #### U MICRO, ERUR #### [facility] [address] [address] [address] Alfredo Lizama Nitrite Ql (U) Negative Normal NEGATIVE [facility] Comment on above: Performed By: #### U MICRO, ERUR #### [facility] [address] [place] [address] Dr. Alfredo Lizama pH (U) 7.0 [pH] Normal 5-9 [facility] Comment on above: Performed By: #### U MICRO, ERUR #### [facility] [address] [place] [address] Dr. Alfredo Lizama SPEC GRAVITY 1.015 Normal 1.005-<=1. 025 [facility] Comment on above: Performed By: #### U MICRO, ERUR #### [facility] [address] [place] [address] Dr. Alfredo Lizama UA PROTEIN Negative Normal NEGATIVE/ TRACE [facility] Comment on above: Performed By: #### U MICRO, ERUR #### [facility] [address] [place] [address] Dr. Alfredo Lizama UR MICRO IND INDICATED Normal [facility] Comment on above: Performed By: #### U MICRO, ERUR #### [facility] [address] [place] [address] Dr. Alfredo Lizama Urobilinogen Qn (U) 0.2 {Tesha'U}/dL Normal 0.2 - 1. 0 [facility] Comment on above: Performed By: #### U MICRO, ERUR #### [facility] [address] [place] [address] Dr. Alfredo Lizama LIPASEon 11-09-2022 Lipase [Catalytic activity/Vol] 34.0 U/L Critically low 73.0-393.0 [facility] Comment on above: Performed By: #### U MICRO, ERUR #### [facility] [address] [place] [address] Dr. Alfredo Lizama PROF 14(COMP METB)on 023 Albumin [Mass/Vol] 4.0 g/dL Normal 3.4-5.0 [facility] Comment on above: Performed By: #### U MICRO, ERUR #### [facility] [address] [place] [address] Dr. Alfredo Lizama Albumin/Globulin [Mass ratio] 1.0 {ratio} Normal [facility] Comment on above: Performed By: #### U MICRO, ERUR #### [facility] [address] [place] [address] Dr. Alfredo Lizama ALP [Catalytic activity/Vol] 206 U/L Critically high 46-116 [facility] Comment on above: Performed By: #### U MICRO, ERUR #### [facility] [address] [place] [address] Dr. Alfredo Lizama ALT [Catalytic activity/Vol] 53 U/L Normal 14-59 [facility] Comment on above: Performed By: #### U MICRO, ERUR #### [facility] [address] [place] [address] Dr. Alfredo Lizama Anion gap [Moles/Vol] 14.5 mmol/L Normal [facility] Comment on above: Performed By: #### U MICRO, ERUR #### [facility] [address] [place] [address] Dr. Alfredo Lizama AST [Catalytic activity/Vol] 55 U/L Critically high 15-37 [facility] Comment on above: Performed By: #### U MICRO, ERUR #### [facility] [address] [place] [address] Dr. Alfredo Lizama Bilirubin [Mass/Vol] 0.7 mg/dL Normal 0.2-1.0 [facility] Comment on above: Performed By: #### U MICRO, ERUR #### [facility] [address] [address] [address] Alfredo Lizama Calcium [Mass/Vol] 9.0 mg/dL Normal 8.5-10.1 [facility] Comment on above: Performed By: #### U MICRO, ERUR #### [facility] [address] [address] [address] Alfredo Lizama Chloride [Moles/Vol] 100 mmol/L Normal 98-107 [facility] Comment on above: Performed By: #### U MICRO, ERUR #### [facility] [address] [place] [address] Dr. Alfredo Lizama CO2 [Moles/Vol] 28.3 mmol/L Normal 21.0-32.0 [facility] Comment on above: Performed By: #### U MICRO, ERUR #### [facility] [address] [place] [address] Dr. Alfredo Lizama Creatinine [Mass/Vol] 0.65 mg/dL Normal 0.55-1.02 [facility] Comment on above: Performed By: #### U MICRO, ERUR #### [facility] [address] [place] [address] Dr. Alfredo Lizama EGFR-AF GUINEAN >60 Normal >=60 [facility] Comment on above: Performed By: #### U MICRO, ERUR #### [facility] [address] [place] [address] Dr. Alfredo Lizama EGFR-NON AF GUINEAN >60 Normal >=60 [facility] Comment on above: Performed By: #### U MICRO, ERUR #### [facility] [address] [address] [address] Alfredo Lizama Globulin (S) [Mass/Vol] 3.9 g/dL Normal [facility] Comment on above: Performed By: #### U MICRO, ERUR #### [facility] [address] [place] [address] Dr. Alfredo Lizama Glucose [Mass/Vol] 134 mg/dL Critically high 74-106 [facility] Comment on above: Performed By: #### U MICRO, ERUR #### [facility] [address] [place] [address] Dr. Alfredo Lizama Potassium [Moles/Vol] 3.8 mmol/L Normal 3.5-5.1 [facility] Comment on above: Performed By: #### U MICRO, ERUR #### [facility] [address] [place] [address] Dr. Alfredo Lizama Protein [Mass/Vol] 7.9 g/dL Normal 6.4-8.2 [facility] Comment on above: Performed By: #### U MICRO, ERUR #### [facility] [address] [place] [address] Dr. Alfredo Lizama Sodium [Moles/Vol] 139 mmol/L Normal 136-145 [facility] Comment on above: Performed By: #### U MICRO, ERUR #### [facility] [address] [place] [address] Dr. Alfredo Lizama Urea nitrogen [Mass/Vol] 7.0 mg/dL Normal 7.0-18.0 [facility] Comment on above: Performed By: #### U MICRO, ERUR #### [facility] [address] [place] [address] Dr. Alfredo Lizama Urea nitrogen/Creatinine [Mass ratio] 10.7 mg/mg Normal [facility] Comment on above: Performed By: #### U MICRO, ERUR #### [facility] [address] [place] [address] Dr. Alfredo Lizama URINE MICROSCOPIC ONLYon BACTERIA TRACE Abnormal NONE SEEN [facility] Comment on above: Performed By: #### U MICRO, ERUR #### [facility] [address] [place] [address] Dr. Alfredo Lizama Bacteria identified Cx Nom (U) INDICATED Normal [facility] Comment on above: Performed By: #### U MICRO, ERUR #### [facility] [address] [place] [address] Dr. Alfredo Lizama CAST NONE SEEN Normal NONE SEEN [facility] Comment on above: Performed By: #### U MICRO, ERUR #### [facility] [address] [place] [address] Dr. Alfredo Lizama Crystals LM Nom (Urine sed) NONE SEEN Normal NONE SEEN [facility] Comment on above: Performed By: #### U MICRO, ERUR #### [facility] [address] [place] [address] Dr. Alfredo Lizama Epithelial cells LM Ql (Urine sed) FEW Abnormal NONE SEEN /RARE [facility] Comment on above: Performed By: #### U MICRO, ERUR #### [facility] [address] [place] [address] Dr. Alfredo Lizama MUCOUS NONE SEEN Normal NONE SEEN [facility] Comment on above: Performed By: #### U MICRO, ERUR #### [facility] [address] [place] [address] Dr. Alfredo Lizama RBC 20-50 Abnormal 0-2 [facility] Comment on above: Performed By: #### U MICRO, ERUR #### [facility] [address] [place] [address] Dr. Alfredo Lizama WBC 20-50 Abnormal NONE SEEN [facility] Comment on above: Performed By: #### U MICRO, ERUR #### [facility] [address] [place] [address] Dr. Alfredo Lizama XR ABD FLAT_UPon 11-09-2022 [...] ENRIQUE LOWE Date: 2022-11-09 11:06 Normal [facility] CULTURE URINEon 10-18-2022 CULTURE URINE [...] <=16 S F Rifampicin <=0.5 S F Trimethoprim/Sulfamethoxa zole <=10 S F Normal [facility] Comment on above: Performed By: #### U MICRO, ERUR #### [facility] [address] [place] [address] Dr. Alfredo Lizama ER URINE PROFILEon 3 Bilirubin Ql (U) Negative Normal NEGATIVE [facility] Comment on above: Performed By: #### LINDA CHAVES #### [facility] [address] [place] [address] Dr. Alfredo Lizama Clarity (U) CLEAR Normal CLEAR [facility] Comment on above: Performed By: #### CHINMAY CHAVESRO #### [facility] [address] [place] [address] Dr. Alfredo Lizama Color (U) YELLOW Normal YELLOW [facility] Comment on above: Performed By: #### FER CHAVESICRO #### [facility] [address] [place] [address] Dr. Alfredo RAYMUNDO A micrscopic examina tion will be performed if indicated. Normal [facility] Comment on above: Performed By: #### Jacque ESTRADA UMICRO #### [facility] [address] [place] [address] Dr. Alfredo Lizama Glucose Ql (U) Negative Normal NEGATIVE [facility] Comment on above: Performed By: #### Jacque ESTRADA UMICRO #### [facility] [address] [place] [address] Dr. Alfredo Lizama Hemoglobin Ql (U) LARGE Abnormal NEGATIVE [facility] Comment on above: Performed By: #### Jacque ESTRADA UMICRO #### [facility] [address] [place] [address] Dr. Alfredo Lizama Ketones Ql (U) Negative Normal NEGATIVE [facility] Comment on above: Performed By: #### Jacque ESTRADA UMICRO #### [facility] [address] [place] [address] Dr. Alfredo Lizama LEUKOCYTES LARGE Abnormal NEGATIVE [facility] Comment on above: Performed By: #### Jacque ESTRADA UMICRO #### [facility] [address] [place] [address] Dr. Alfredo Lizama Nitrite Ql (U) Positive Abnormal NEGATIVE [facility] Comment on above: Performed By: #### Jacque ESTRADA UMICRO #### [facility] [address] [place] [address] Dr. Alfredo Lizama pH (U) 6.5 [pH] Normal 5-9 [facility] Comment on above: Performed By: #### FER CHAVESICRO #### [facility] [address] [place] [address] Dr. Alfredo Lizama Protein (U) [Mass/Vol] 100 mg/dL Abnormal NEGAT LATISHA/ TRACE [facility] Comment on above: Performed By: #### Jacque ESTRADA UMICRO #### [facility] [address] [place] [address] Dr. Alfredo Lizama SPEC GRAVITY 1.010 Normal 1.005-<=1. 025 [facility] Comment on above: Performed By: #### CHINMAY CHAVESRO #### [facility] [address] [place] [address] Dr. Alfredo Lizama UR MICRO IND INDICATED Normal [facility] Comment on above: Performed By: #### FER CHAVESICRO #### [facility] [address] [place] [address] Dr. Alfredo Lizama Urobilinogen Qn (U) 1.0 {Tesha'U}/dL Normal 0.2 - 1. 0 [facility] Comment on above: Performed By: #### E RURLINDA #### [facility] [address] [place] [address] Dr. Alfredo Lizama URINE MICROSCOPIC ONLYon BACTERIA MODERATE Abnormal NONE SEEN [facility] Comment on above: Performed By: #### U MICRO, ERUR #### [facility] [address] [place] [address] Dr. Alfredo Lizama Bacteria identified Cx Nom (U) INDICATED Normal [facility] Comment on above: Performed By: #### U MICRO, ERUR #### [facility] [address] [place] [address] Dr. Alfredo Lziama CA OX CRYSTALS RARE Normal [facility] Comment on above: Performed By: #### U MICRO, ERUR #### [facility] [address] [place] [address] Dr. Alfredo Lizama CAST NONE SEEN Normal NONE SEEN [facility] Comment on above: Performed By: #### U MICRO, ERUR #### [facility] [address] [place] [address] Dr. Alfredo Lizama Crystals LM Nom (Urine sed) SEEN Abnormal NONE SEEN [facility] Comment on above: Performed By: #### U MICRO, ERUR #### [facility] [address] [place] [address] Dr. Alfredo Lizama Epithelial cells LM Ql (Urine sed) MODERATE Abnormal NONE SEEN /RARE [facility] Comment on above: Performed By: #### U MICRO, ERUR #### [facility] [address] [place] [address] Dr. Alfredo Lizama MUCOUS TRACE Abnormal NONE SEEN [facility] Comment on above: Performed By: #### U MICRO, ERUR #### [facility] [address] [place] [address] Dr. Alfredo Lizama RBC 20-50 Abnormal 0-2 [facility] Comment on above: Performed By: #### U MICRO, ERUR #### [facility] [address] [place] [address] Dr. Alfredo Lizama WBC 50-75 Abnormal NONE SEEN [facility] Comment on above: Performed By: #### U MICRO, ERUR #### [facility] [address] [place] [address] Dr. Alfredo Lizama Covid-19 PCR ([facility])on 08-06 SARS-CoV-2 (COVID-19) RNA ADRIÁN+probe Ql (Unsp spec) Not detected Normal NOT DETECTED [facility] Comment on above: Result Comment: [...] for this test is supported by the [place] [employer] of Health and Human Service's declaration that [...] Performed By: #### U MICRO, ERUR #### [facility] [address] [place] [address] Dr. Alfredo Lizama CBC AUTO DIFFon 08-24-2022 BASO # 0.1 103/ul Normal 0.0-0.1 [facility] Comment on above: Performed By: #### C BC #### [facility] [address] [place] [address] Dr. Alfredo Lizama Basophils/100 WBC (Bld) 0.8 % Normal 0.2-2.0 [facility] Comment on above: Performed By: #### C BC #### [facility] [address] [place] [address] Dr. Alfredo Lizama EO # 0.3 103/ul Normal 0.0-0.7 [facility] Comment on above: Performed By: #### C BC #### [facility] [address] [place] [address] Dr. Alfredo Lizama Eosinophils/100 WBC (Bld) 3.1 % Normal 0.9-7.0 [facility] Comment on above: Performed By: #### C BC #### [facility] [address] [place] [address] Dr. Alfredo Lizama Erythrocyte distribution width (RBC) [Ratio] 13.4 % Normal 11.0-15.0 [facility] Comment on above: Performed By: #### C BC #### [facility] [address] [place] [address] Dr. Alfredo Lizama Hematocrit (Bld) [Volume fraction] 47.2 % Normal 36.0-48.0 [facility] Comment on above: Performed By: #### C BC #### [facility] [address] [place] [address] Dr. Alfredo Lizama Hemoglobin (Bld) [Mass/Vol] 15.6 g/dL Normal 12.0-16.0 [facility] Comment on above: Performed By: #### C BC #### [facility] [address] [place] [address] Dr. Alfredo Lizama IG # 0.02 10e3/ul Normal 0.00-0.03 [facility] Comment on above: Performed By: #### C BC #### [facility] [address] [place] [address] Dr. Alfredo Lizama IG % 0.2 % Normal 0.0-0.5 [facility] Comment on above: Performed By: #### C BC #### [facility] [address] [place] [address] Dr. Alfredo Lizama LYMPH # 4.4 103/ul Critically high 1.2-3.8 [facility] Comment on above: Performed By: #### C BC #### [facility] [address] [place] [address] Dr. Alfredo Lizama Lymphocytes/100 WBC (Bld) 42.3 % Normal 20.5-60.0 [facility] Comment on above: Performed By: #### C BC #### [facility] [address] [place] [address] Dr. Alfredo Lizama MANUAL DIFF REQ NO Normal [facility] Comment on above: Performed By: #### C BC #### [facility] [address] [place] [address] Dr. Alfredo Lizama MCH (RBC) [Entitic mass] 28.8 pg Normal 26.7-34.0 [facility] Comment on above: Performed By: #### C BC #### [facility] [address] [place] [address] Dr. Alfredo Lizama MCHC (RBC) [Mass/Vol] 33.1 g/dL Normal 29.9-35.2 [facility] Comment on above: Performed By: #### C BC #### [facility] [address] [place] [address] Dr. Alfredo Lizama MCV (RBC) [Entitic vol] 87.2 fL Normal 81.0-99.0 [facility] Comment on above: Performed By: #### C BC #### [facility] [address] [place] [address] Dr. Alfredo Lizama MONO # 0.6 103/ul Normal 0.3-0.8 [facility] Comment on above: Performed By: #### C BC #### [facility] [address] [place] [address] Dr. Alfredo Lizama Monocytes/100 WBC (Bld) 5.3 % Normal 1.7-12.0 [facility] Comment on above: Performed By: #### C BC #### [facility] [address] [place] [address] Dr. Alfredo Lizama NEUT # 5.0 103/ul Normal 1.4-6.5 [facility] Comment on above: Performed By: #### C BC #### [facility] [address] [place] [address] Dr. Alfredo Lizama Neutrophils/100 WBC (Bld) 48.3 % Normal 43.0-75.0 [facility] Comment on above: Performed By: #### C BC #### [facility] [address] [address] [address] Alfredo Lizama Platelet mean volume (Bld) [Entitic vol] 9.9 fL Normal 9.5-13.5 [facility] Comment on above: Performed By: #### C BC #### [facility] [address] [place] [address] Dr. Alfredo Lizama PLT 298 103/ul Normal 150-450 [facility] Comment on above: Performed By: #### C BC #### [facility] [address] [address] [address] Alfredo Lizama RBC 5.41 106/ul Critically high 4.20-5.40 [facility] Comment on above: Performed By: #### C BC #### [facility] [address] [place] [address] Dr. Alfredo Lizama WBC 10.3 103/ul Normal 4.0-11.0 [facility] Comment on above: Performed By: #### C BC #### [facility] [address] [place] [address] Dr. Alfredo Lizama PROF CHEM 8 (BAS METB)on Anion gap [Moles/Vol] 14.3 mmol/L Normal [facility] Comment on above: Performed By: #### U MICRO, ERUR #### [facility] [address] [place] [address] Dr. Alfredo Lizama Calcium [Mass/Vol] 9.1 mg/dL Normal 8.5-10.1 [facility] Comment on above: Performed By: #### U MICRO, ERUR #### [facility] [address] [place] [address] Dr. Alfredo Lizama Chloride [Moles/Vol] 99 mmol/L Normal 98-107 [facility] Comment on above: Performed By: #### U MICRO, ERUR #### [facility] [address] [place] [address] Dr. Alfredo Lizama CO2 [Moles/Vol] 29.0 mmol/L Normal 21.0-32.0 [facility] Comment on above: Performed By: #### U MICRO, ERUR #### [facility] [address] [place] [address] Dr. Alfredo Lizama Creatinine [Mass/Vol] 0.70 mg/dL Normal 0.55-1.02 [facility] Comment on above: Performed By: #### U MICRO, ERUR #### [facility] [address] [address] [address] Alfredo Lizama EGFR-AF GUINEAN >60 Normal >=60 [facility] Comment on above: Performed By: #### U MICRO, ERUR #### [facility] [address] [place] [address] Dr. Alfredo Lizama EGFR-NON AF GUINEAN >60 Normal >=60 [facility] Comment on above: Performed By: #### U MICRO, ERUR #### [facility] [address] [place] [address] Dr. Alfredo Lizama Glucose [Mass/Vol] 121 mg/dL Critically high 74-106 [facility] Comment on above: Performed By: #### U MICRO, ERUR #### [facility] [address] [address] [address] Alfredo Lizama Potassium [Moles/Vol] 3.3 mmol/L Critically low 3.5-5.1 [facility] Comment on above: Performed By: #### U MICRO, ERUR #### [facility] [address] [place] [address] Dr. Alfredo Lizama Sodium [Moles/Vol] 139 mmol/L Normal 136-145 [facility] Comment on above: Performed By: #### U MICRO, ERUR #### [facility] [address] [address] [address] Alfredo Lizama Urea nitrogen [Mass/Vol] 5.0 mg/dL Critically low 7.0-18. 0 [facility] [facility] Comment on above: Performed By: #### U MICRO, ERUR #### [facility] [address] [address] [address] Alfredo Lizama Urea nitrogen/Creatinine [Mass ratio] 7.1 mg/mg Normal [facility] Comment on above: Performed By: #### U MICRO, ERUR #### [facility] [address] [place] [address] Dr. Alfredo Lizama PROTIMEon 08-24-2022 INR Coag (PPP) [Relative time] 0.99 {INR} Normal [facility] Comment on above: Performed By: #### P T, PTT #### [facility] [address] [place] [address] Dr. Alfredo Lizama INR GUIDELINES SEE BELOW Normal [facility] Comment on above: Result Comment: MARY JO RED INR: 2.0 - 3.0 CONDITIONS NOT LISTED BELOW 2.5 - 3.5 FOR PROSTHETIC HEART VALVE REPLACEMENT 2.5 - 3.5 RECURRENT THROMBOSIS Performed By: #### P T, PTT #### [facility] [address] [place] [address] Dr. Alfredo Lizama PT Coag (PPP) [Time] 10.7 s Normal 9.0-11.6 [facility] Comment on above: Performed By: #### P T, PTT #### [facility] [address] [place] [address] Dr. Alfredo Lizama PTTon 08-24-2022 aPTT Coag (Bld) [Time] 31.7 s Normal 22.3-36.2 Th [facility] Comment on above: Performed By: #### P T, PTT #### [facility] [address] [place] [address] Dr. Alfredo Lizama BN SACRUM/COCCYX, MIN 2 [...] 09/20/2019. Thoracolumbar spine radiographs 09/08/2021. ACCESSION NUMBER(S): [id number]; [id number]; [id number] ORDERING CLINICIAN: CANDICE PEREZ FINDINGS: Three views [...] stated. Electronically signed by: GOMEZ JAMA MD [facility] BN SPINE, LUMBOSACRAL; 2 OR 3 VIEWSon [...] 09/20/2019. Thoracolumbar spine radiographs 09/08/2021. ACCESSION NUMBER(S): [id number]; [id number]; [id number] ORDERING CLINICIAN: CANDICE PEREZ FINDINGS: Three views [...] stated. Electronically signed by: GOMEZ JAMA MD [facility] BN SPINE, THORACIC, 3 VIEWSo n 06-07-2022 [...] 09/20/2019. Thoracolumbar spine radiographs 09/08/2021. ACCESSION NUMBER(S): [id number]; [id number]; [id number] ORDERING CLINICIAN: CANDICE HEERSINK FINDINGS: Three views of the thoracic spine, [...] Electronically signed by: GOMEZ JAMA MD Normal [facility] CBC AND DIFFERENTIALon 06-07 % AUTOMATED IMMATURE GRAN 0.2 % Normal 0.0 - 0.9 [facility] Comment on above: Result Comment: Jaleesa ture Granulocyte Count (IG) includes promyelocytes, myelocytes and metamyelocytes but does not include bands. Percent differential counts (%) should be interpreted in the context of the absolute cell counts (cells/L). Performed By: #### R ENAL #### [facility] [address] [place] [address] Basophils (Bld) [#/Vol] 0.09 10*3/uL Normal 0.00 - 0.10 [facility] Comment on above: Performed By: #### R ENAL #### [facility] [address] [place] [address] Basophils/100 WBC (Bld) 1.0 % Normal 0.0 - 2.0 [facility] Comment on above: Performed By: #### R ENAL #### [facility] [address] [place] [address] Eosinophils (Bld) [#/Vol] 0.24 10*3/uL Normal 0.00 - 0.70 [facility] Comment on above: Performed By: #### R ENAL #### [facility] [address] [place] [address] Eosinophils/100 WBC (Bld) 2.6 % Normal 0.0 - 6.0 [facility] Comment on above: Performed By: #### R ENAL #### [facility] [address] [place] [address] Erythrocyte distribution width (RBC) [Ratio] 12.9 % Normal 11.5 - 14.5 [facility] Comment on above: Performed By: #### R ENAL #### [facility] [address] [place] [address] Hematocrit (Bld) [Volume fraction] 48.4 % High 36.0 - 46.0 [facility] Comment on above: Performed By: #### R ENAL #### [facility] [address] [place] [address] Hemoglobin (Bld) [Mass/Vol] 17.1 g/dL High 12.0 - 16.0 [facility] Comment on above: Performed By: #### R ENAL #### [facility] [address] [place] [address] Lymphocytes (Bld) [#/Vol] 2.93 10*3/uL Normal 1.20 - 4.80 [facility] Comment on above: Performed By: #### R ENAL #### [facility] [address] [place] [address] Lymphocytes/100 WBC (Bld) 31.9 % Normal 13.0 - 44.0 [facility] Comment on above: Performed By: #### R ENAL #### [facility] [address] [place] [address] MCHC (RBC) [Mass/Vol] 35.3 g/dL Normal 32.0 - 36.0 [facility] Comment on above: Performed By: #### R ENAL #### [facility] [address] [place] [address] MCV (RBC) [Entitic vol] 85 fL Normal 80 - 100 [facility] Comment on above: Performed By: #### R ENAL #### [facility] [address] [place] [address] Monocytes (Bld) [#/Vol] 0.36 10*3/uL Normal 0.10 - 1.00 [facility] Comment on above: Performed By: #### R ENAL #### [facility] [address] [place] [address] Monocytes/100 WBC (Bld) 3.9 % Normal 2.0 - 10.0 [facility] Comment on above: Performed By: #### R ENAL #### [facility] [address] [place] [address] Neutrophils (Bld) [#/Vol] 5.54 10*3/uL Normal 1.20 - 7.70 [facility] Comment on above: Performed By: #### R ENAL #### [facility] [address] [place] [address] Neutrophils/100 WBC (Bld) 60.4 % Normal 40.0 - 80.0 [facility] Comment on above: Performed By: #### R ENAL #### [facility] [address] [place] [address] NUCLEATED RBC 0.0 /100 WBC Normal 0.0-0.0 [facility] Comment on above: Performed By: #### R ENAL #### [facility] [address] [place] [address] Platelets (Bld) [#/Vol] 365 10*3/uL Normal 150 - 450 [facility] Comment on above: Performed By: #### R ENAL #### [facility] [address] [place] [address] RBC 5.69 x10E12/L High 4.00 - 5.20 [facility] Comment on above: Performed By: #### R ENAL #### [facility] [address] [place] [address] WBC (Bld) [#/Vol] 9.2 10*3/uL Normal 4.4 - 11.3 [facility] Comment on above: Performed By: #### R ENAL #### [facility] [address] [place] [address] COMPREHENSIVE PANELon 2021 Albumin [Mass/Vol] 4.6 g/dL Normal 3.4 - 5.0 [facility] Comment on above: Performed By: #### R ENAL #### [facility] [address] [place] [address] ALP [Catalytic activity/Vol] 192 U/L High 33 - 110 [facility] Comment on above: Performed By: #### R ENAL #### [facility] [address] [place] [address] ALT [Catalytic activity/Vol] 33 U/L Normal 7 - 45 [facility] Comment on above: Result Comment: Melly ents treated with Sulfasalazine may generate falsely decreased results for ALT. Performed By: #### R ENAL #### [facility] [address] [place] [address] Anion gap [Moles/Vol] 16 mmol/L Normal 10 - 20 [facility] Comment on above: Performed By: #### R ENAL #### [facility] [address] [place] [address] AST [Catalytic activity/Vol] 51 U/L High 9 - 39 [facility] Comment on above: Performed By: #### R ENAL #### [facility] [address] [place] [address] Bilirubin [Mass/Vol] 0.5 mg/dL Normal 0.0 - 1.2 [facility] Comment on above: Performed By: #### R ENAL #### [facility] [address] [place] [address] Calcium [Mass/Vol] 10.3 mg/dL Normal 8.6 - 10.6 [facility] Comment on above: Performed By: #### R ENAL #### [facility] [address] [place] [address] Chloride [Moles/Vol] 101 mmol/L Normal 98 - 107 [facility] Comment on above: Performed By: #### R ENAL #### [facility] [address] [place] [address] Creatinine [Mass/Vol] 0.61 mg/dL Normal 0.50 - 1.05 [facility] Comment on above: Performed By: #### R ENAL #### [facility] [address] [place] [address] eGFR FEMALE >90 Normal >90 [facility] Comment on above: Result Comment: CALC ULATIONS OF ESTIMATED GFR ARE PERFORMED USING THE 2020 CKD-EPI STUDY REFIT EQUATION WITHOUT THE RACE VARIABLE FOR THE IDMS-TRACEABLE CREATININE METHODS. https://jasn.asnjournals.org/content/early/ASN.341 7525289 Performed By: #### R ENAL #### [facility] [address] [place] [address] Glucose [Mass/Vol] 100 mg/dL High 74 - 99 [facility] Comment on above: Performed By: #### R ENAL #### [facility] [address] [place] [address] HCO3 (Bld) [Moles/Vol] 27 mmol/L Normal 21 - 32 [facility] Comment on above: Performed By: #### R ENAL #### [facility] [address] [place] [address] Potassium [Moles/Vol] 3.8 mmol/L Normal 3.5 - 5.3 [facility] Comment on above: Performed By: #### R ENAL #### [facility] [address] [place] [address] Protein [Mass/Vol] 8.2 g/dL Normal 6.4 - 8.2 [facility] Comment on above: Performed By: #### R ENAL #### [facility] [address] [place] [address] Sodium [Moles/Vol] 140 mmol/L Normal 136 - 145 [facility] Comment on above: Performed By: #### R ENAL #### [facility] [address] [place] [address] Urea nitrogen [Mass/Vol] 5 mg/dL Low 6 - 23 [facility] Comment on above: Performed By: #### R ENAL #### [facility] [address] [place] [address] Consult - Neuro-Surgeryon Consult - Neuro-Surgery Service: [...] extremities Psychological: mood appropriate Skin: Well perfused Assessment/Recommendation s: Assessment: Pt is a 47 yo F [...] Service, History of Present Illness, Allergies, Objective, Assessment/Recommendation s, Note Completion Perez Carlisle) (Signed 07-Jun-2022 11:22) Authored: Note Completion Co-Signer: Service, History of Present Illness, Allergies, Objective, Assessment/Recommendation s, Note Completion Last Updated: 07-Jun-2022 11:22 by Perez Carlisle) Normal [facility] NR CT L-SPINE WO CONTRASTon 06-07-[address] L-SPINE WO CONTRAST Patient Name: MORALES LEE STUDY: CT T-SPINE WO CONTRAST; CT L-SPINE WO CONTRAST 06/06/2022 11:03 pm INDICATION: ok, Lie Flat: Yes COMPARISON: 09/20/2021 MRI and 09/18/2021 CT ACCESSION NUMBER(S): [id number]; [id number] ORDERING CLINICIAN: CANDICE PEREZ TECHNIQUE: Axial CT [...] osseous spinal canal or neural foraminal stenosis. [id number] spinal canal and neural foraminal narrowing described [...] Electronically signed by: CELI MCNEIL DO Normal [facility] NR CT T-SPINE WO CONTRASTon 06-07-[address] T-SPINE WO CONTRAST Patient Name: MORALES LEE STUDY: CT T-SPINE WO CONTRAST; CT L-SPINE WO CONTRAST 06/06/2022 11:03 pm INDICATION: ok, Lie Flat: Yes COMPARISON: 09/20/2021 MRI and 09/18/2021 CT ACCESSION NUMBER(S): [id number]; [id number] ORDERING CLINICIAN: CANDICE PEREZ TECHNIQUE: Axial CT [...] osseous spinal canal or neural foraminal stenosis. Txzv-[id number] spinal canal and neural foraminal narrowing described [...] view. Electronically signed by: DO Andrei TOURE [facility] Provider Note - ED Care Diaz [...] Impression, Attestation, Chart Review, Scores Yony Aguirre (DO) (Signed 21-Jun-2022 06:18) Authored: Attestation, Chart Review Co-Signer: ED Notes, Clinical Impression, Attestation, Chart Review, Scores Last Updated: 21-Jun-2022 06:18 by Yony Aguirre () Normal [facility] Provider Note - ED v3on 10-0 [...] - M21.37 (more content not included)... Normal [facility] Triage - EDon 06-06-2022 Triage - [...] obeys commands Best Verbal Response: (V5) oriented [place] Score: 15 Mask applied: yes Patient has [...] 06-Jun-2022 19:07 by Meghan Chavez (MERA) Normal [facility] CULTURE URINEon 05-10-2022 CULTURE URINE Isolate [...] >=8 R F Nitrofurantoin <=16 S F Trimethoprim/Sulfamethoxa zole <=20 S F Normal [facility] Comment on above: Performed By: #### U MICRO, ERUR #### [facility] [address] [place] [address] Dr. Alfredo Lizama CBC AUTO DIFFon 05-07-2022 BASO # 0.1 103/ul Normal 0.0-0.1 [facility] Comment on above: Performed By: #### U MICRO, ERUR #### [facility] [address] [place] [address] Dr. Alfredo Lizama Basophils/100 WBC (Bld) 0.5 % Normal 0.2-2.0 [facility] Comment on above: Performed By: #### U MICRO, ERUR #### [facility] [address] [place] [address] Dr. Alfredo Lizama EO # 0.4 103/ul Normal 0.0-0.7 [facility] Comment on above: Performed By: #### U MICRO, ERUR #### [facility] [address] [place] [address] Dr. Alfredo Lizama Eosinophils/100 WBC (Bld) 3.5 % Normal 0.9-7.0 [facility] Comment on above: Performed By: #### U MICRO, ERUR #### [facility] [address] [place] [address] Dr. Alfredo Lizama Erythrocyte distribution width (RBC) [Ratio] 13.2 % Normal 11.0-15.0 [facility] Comment on above: Performed By: #### U MICRO, ERUR #### [facility] [address] [place] [address] Dr. Alfredo Lizama Hematocrit (Bld) [Volume fraction] 44.0 % Normal 36.0-48.0 [facility] Comment on above: Performed By: #### U MICRO, ERUR #### [facility] [address] [address] [address] Alfredo Lizama Hemoglobin (Bld) [Mass/Vol] 14.8 g/dL Normal 12.0-16.0 [facility] Comment on above: Performed By: #### U MICRO, ERUR #### [facility] [address] [place] [address] Dr. Alfredo Lizama IG # 0.03 10e3/ul Normal 0.00-0.03 [facility] Comment on above: Performed By: #### U MICRO, ERUR #### [facility] [address] [place] [address] Dr. Alfredo Lizama IG % 0.2 % Normal 0.0-0.5 [facility] Comment on above: Performed By: #### U MICRO, ERUR #### [facility] [address] [place] [address] Dr. Alfredo Lizama LYMPH # 3.8 103/ul Normal 1.2-3.8 [facility] Comment on above: Performed By: #### U MICRO, ERUR #### [facility] [address] [place] [address] Dr. Alfredo Lizama Lymphocytes/100 WBC (Bld) 31.3 % Normal 20.5-60.0 [facility] Comment on above: Performed By: #### U MICRO, ERUR #### [facility] [address] [place] [address] Dr. Alfredo Lizama MANUAL DIFF REQ NO Normal [facility] Comment on above: Performed By: #### U MICRO, ERUR #### [facility] [address] [place] [address] Dr. Alfredo Lizama MCH (RBC) [Entitic mass] 28.8 pg Normal 26.7-34.0 [facility] Comment on above: Performed By: #### U MICRO, ERUR #### [facility] [address] [place] [address] Dr. Alfredo Lizama MCHC (RBC) [Mass/Vol] 33.6 g/dL Normal 29.9-35.2 [facility] Comment on above: Performed By: #### U MICRO, ERUR #### [facility] [address] [place] [address] Dr. Alfredo Lizama MCV (RBC) [Entitic vol] 85.8 fL Normal 81.0-99.0 [facility] Comment on above: Performed By: #### U MICRO, ERUR #### [facility] [address] [place] [address] Dr. Alfredo Lizama MONO # 0.7 103/ul Normal 0.3-0.8 [facility] Comment on above: Performed By: #### U MICRO, ERUR #### [facility] [address] [place] [address] Dr. Alfredo Lziama Monocytes/100 WBC (Bld) 5.8 % Normal 1.7-12.0 [facility] Comment on above: Performed By: #### U MICRO, ERUR #### [facility] [address] [place] [address] Dr. Alfredo Lizama NEUT # 7.1 103/ul Critically high 1.4-6.5 [facility] Comment on above: Performed By: #### U MICRO, ERUR #### [facility] [address] [place] [address] Dr. Alfredo Lizama Neutrophils/100 WBC (Bld) 58.7 % Normal 43.0-75.0 [facility] Comment on above: Performed By: #### U MICRO, ERUR #### [facility] [address] [place] [address] Dr. Alfredo Lizama Platelet mean volume (Bld) [Entitic vol] 9.6 fL Normal 9.5-13.5 [facility] Comment on above: Performed By: #### U MICRO, ERUR #### [facility] [address] [place] [address] Dr. Alfredo Lizama PLT 269 103/ul Normal 150-450 [facility] Comment on above: Performed By: #### U MICRO, ERUR #### [facility] [address] [place] [address] Dr. Alfredo Lizama RBC 5.13 106/ul Normal 4.20-5.40 [facility] Comment on above: Performed By: #### U MICRO, ERUR #### [facility] [address] [place], [place] [address] Dr. Alfredo Lizama WBC 12.2 103/ul Critically high 4.0-11.0 [facility] Comment on above: Performed By: #### U MICRO, ERUR #### [facility] [address] [place], [place] [address] ABD/PELV W CONon [...] appendicitis. Moderate colonic stool. Small hiatal hernia. Peritoneum/retroperitoneu m: Trace free fluid in the pelvis with [...] KORIN STANLEY Date: 2022-05-07 14:00 Normal [facility] ER URINE PROFILEon 2 Bilirubin Ql (U) Negative Normal NEGATIVE [facility] Comment on above: Performed By: #### U MICRO, ERUR #### [facility] [address] [place] [address] Dr. Alfredo Lizama Clarity (U) CLOUDY Abnormal CLEAR [facility] Comment on above: Performed By: #### U MICRO, ERUR #### [facility] [address] [place] [address] Dr. Alfredo Lizama Color (U) LT. YELLOW Normal YELLOW [facility] Comment on above: Performed By: #### U MICRO, ERUR #### [facility] [address] [place] [address] Dr. Alfredo Lizama ERUBYROND A micrscopic examina tion will be performed if indicated. Normal [facility] Comment on above: Performed By: #### U MICRO, ERUR #### [facility] [address] [place] [address] Dr. Alfredo Lizama Glucose Ql (U) Negative Normal NEGATIVE [facility] Comment on above: Performed By: #### U MICRO, ERUR #### [facility] [address] [place] [address] Dr. Alfredo Lizama Hemoglobin Ql (U) LARGE Abnormal NEGATIVE [facility] Comment on above: Performed By: #### U MICRO, ERUR #### [facility] [address] [place] [address] Dr. Alfredo Lizama Ketones Ql (U) Negative Normal NEGATIVE [facility] Comment on above: Performed By: #### U MICRO, ERUR #### [facility] [address] [place] [address] Dr. Alfredo Lizama LEUKOCYTES MODERATE Abnormal NEGATIVE [facility] Comment on above: Performed By: #### U MICRO, ERUR #### [facility] [address] [address] [address] Alfredo Lizama Nitrite Ql (U) Positive Abnormal NEGATIVE [facility] Comment on above: Performed By: #### U MICRO, ERUR #### [facility] [address] [place] [address] Dr. Alfredo Lizama pH (U) 8.5 [pH] Normal 5-9 [facility] Comment on above: Performed By: #### U MICRO, ERUR #### [facility] [address] [place] [address] Dr. Alfredo Lizama Protein (U) [Mass/Vol] 100 mg/dL Abnormal NEGAT LATISHA/ TRACE [facility] Comment on above: Performed By: #### U MICRO, ERUR #### [facility] [address] [place] [address] Dr. Alfredo Lizama SPEC GRAVITY 1.015 Normal 1.005-<=1. 025 [facility] Comment on above: Performed By: #### U MICRO, ERUR #### [facility] [address] [place] [address] Dr. Alfredo Lizama UR MICRO IND INDICATED Normal [facility] Comment on above: Performed By: #### U MICRO, ERUR #### [facility] [address] [place] [address] Dr. Alfredo Lizama Urobilinogen Qn (U) 1.0 {Tesha'U}/dL Normal 0.2 - 1. 0 [facility] Comment on above: Performed By: #### U MICRO, ERUR #### [facility] [address] [place] [address] Dr. Alfredo Lizama PROF CHEM 8 (BAS METB)on Anion gap [Moles/Vol] 12.0 mmol/L Normal [facility] Comment on above: Performed By: #### U MICRO, ERUR #### [facility] [address] [address] [address] Alfredo Lizama Calcium [Mass/Vol] 8.6 mg/dL Normal 8.5-10.1 [facility] Comment on above: Performed By: #### U MICRO, ERUR #### [facility] [address] [place] [address] Dr. Alfredo Lizama Chloride [Moles/Vol] 101 mmol/L Normal 98-107 [facility] Comment on above: Performed By: #### U MICRO, ERUR #### [facility] [address] [place] [address] Dr. Alfredo Lizama CO2 [Moles/Vol] 28.0 mmol/L Normal 21.0-32.0 [facility] Comment on above: Performed By: #### U MICRO, ERUR #### [facility] [address] [place] [address] Dr. Alfredo Lizama Creatinine [Mass/Vol] 0.77 mg/dL Normal 0.55-1.02 [facility] Comment on above: Performed By: #### U MICRO, ERUR #### [facility] [address] [place] [address] Dr. Alfredo Lizama EGFR-AF GUINEAN >60 Normal >=60 [facility] Comment on above: Performed By: #### U MICRO, ERUR #### [facility] [address] [place] [address] Dr. Alfredo Lizama EGFR-NON AF GUINEAN >60 Normal >=60 [facility] Comment on above: Performed By: #### U MICRO, ERUR #### [facility] [address] [place] [address] Dr. Alfredo Lizama Glucose [Mass/Vol] 96 mg/dL Normal 74-106 [facility] Comment on above: Performed By: #### U MICRO, ERUR #### [facility] [address] [place] [address] Dr. Alfredo Lizama Potassium [Moles/Vol] 4.0 mmol/L Normal 3.5-5.1 [facility] Comment on above: Performed By: #### U MICRO, ERUR #### [facility] [address] [address] [address] Alfredo Lizama Sodium [Moles/Vol] 137 mmol/L Normal 136-145 [facility] Comment on above: Performed By: #### U MICRO, ERUR #### [facility] [address] [place] [address] Dr. Alfredo Lizama Urea nitrogen [Mass/Vol] 7.0 mg/dL Normal 7.0-18.0 [facility] Comment on above: Performed By: #### U MICRO, ERUR #### [facility] [address] [place] [address] Dr. Alfredo Lizama Urea nitrogen/Creatinine [Mass ratio] 9.1 mg/mg Normal [facility] Comment on above: Performed By: #### U MICRO, ERUR #### [facility] [address] [place] [address] Dr. Alrfedo Lizama URINE MICROSCOPIC ONLYon BACTERIA MODERATE Abnormal NONE SEEN [facility] Comment on above: Performed By: #### U MICRO, ERUR #### [facility] [address] [place] [address] Dr. Alfredo Lizama Bacteria identified Cx Nom (U) INDICATED Normal [facility] Comment on above: Performed By: #### U MICRO, ERUR #### [facility] [address] [place] [address] Dr. Alfredo Lizama CAST NONE SEEN Normal NONE SEEN [facility] Comment on above: Performed By: #### U MICRO, ERUR #### [facility] [address] [place] [address] Dr. Alfredo Lizama Crystals LM Nom (Urine sed) NONE SEEN Normal NONE SEEN [facility] Comment on above: Performed By: #### U MICRO, ERUR #### [facility] [address] [place] [address] Dr. Alfredo Lizama Epithelial cells LM Ql (Urine sed) FEW Abnormal NONE SEEN /RARE [facility] Comment on above: Performed By: #### U MICRO, ERUR #### [facility] [address] [address] [address] Alfredo Lizama MUCOUS NONE SEEN Normal NONE SEEN [facility] Comment on above: Performed By: #### U MICRO, ERUR #### [facility] [address] [place] [address] Dr. Alfredo Lizama RBC 2-5 Abnormal 0-2 [facility] Comment on above: Performed By: #### U MICRO, ERUR #### [facility] [address] [address] [address] Alfredo Lizama WBC 10-20 Abnormal NONE SEEN [facility] Comment on above: Performed By: #### U MICRO, ERUR #### [facility] [address] [place] [address] Dr. Alfredo Lizama CULTURE URINEon 04-10-2022 CULTURE [...] <=0.12 S F Nitrofurantoin 64 R F Trimethoprim/Sulfamethoxa zole <=20 S F ORGANISM 2 Escherichia coli [...] <=0.12 S F Nitrofurantoin <=16 S F Trimethoprim/Sulfamethoxa zole <=20 S F Normal [facility] Comment on above: Performed By: #### U MICRO, ERUR #### [facility] [address] [address] [address] Alfredo SANDY URINE PROFILEon 2 Bilirubin Ql (U) Negative Normal NEGATIVE [facility] Comment on above: Performed By: #### U MICRO, ERUR #### [facility] [address] [address] [address] Alfredo Lizama Clarity (U) CLOUDY Abnormal CLEAR [facility] Comment on above: Performed By: #### U MICRO, ERUR #### [facility] [address] [address] [address] Alfredo Lizama Color (U) YELLOW Normal YELLOW [facility] Comment on above: Performed By: #### U MICRO, ERUR #### [facility] [address] [place] [address] Dr. Alfredo Lizama ERUAHD A micrscopic examina tion will be performed if indicated. Normal [facility] Comment on above: Performed By: #### U MICRO, ERUR #### [facility] [address] [address] [address] Alfredo Lizama Glucose Ql (U) Negative Normal NEGATIVE [facility] Comment on above: Performed By: #### U MICRO, ERUR #### [facility] [address] [place] [address] Dr. Alfredo Lizama Hemoglobin Ql (U) SMALL Abnormal NEGATIVE [facility] Comment on above: Performed By: #### U MICRO, ERUR #### [facility] [address] [address] [address] Alfredo Lizama Ketones Ql (U) Negative Normal NEGATIVE [facility] Comment on above: Performed By: #### U MICRO, ERUR #### [facility] [address] [address] [address] Alfredo Lizama LEUKOCYTES LARGE Abnormal NEGATIVE [facility] Comment on above: Performed By: #### U MICRO, ERUR #### [facility] [address] [address] [address] Alfredo Lizama Nitrite Ql (U) Negative Normal NEGATIVE [facility] Comment on above: Performed By: #### U MICRO, ERUR #### [facility] [address] [place] [address] Dr. Alfredo Lizama pH (U) 7.0 [pH] Normal 5-9 [facility] Comment on above: Performed By: #### U MICRO, ERUR #### [facility] [address] [place] [address] Dr. Alfredo Lizama SPEC GRAVITY <=1.005 Abnormal 1.005-<=1. 025 [facility] Comment on above: Performed By: #### U MICRO, ERUR #### [facility] [address] [place] [address] Dr. Alfredo Lizama UA PROTEIN Negative Normal NEGATIVE/ TRACE [facility] Comment on above: Performed By: #### U MICRO, ERUR #### [facility] [address] [place] [address] Dr. Alfredo Lizama UR MICRO IND INDICATED Normal [facility] Comment on above: Performed By: #### U MICRO, ERUR #### [facility] [address] [place] [address] Dr. Alfredo Lizama Urobilinogen Qn (U) 0.2 {Tesha'U}/dL Normal 0.2 - 1. 0 [facility] Comment on above: Performed By: #### U MICRO, ERUR #### [facility] [address] [place] [address] Dr. Alfredo Lizama URINE MICROSCOPIC ONLYon BACTERIA MODERATE Abnormal NONE SEEN [facility] Comment on above: Performed By: #### U MICRO, ERUR #### [facility] [address] [place] [address] Dr. Alfredo Lizama Bacteria identified Cx Nom (U) INDICATED Normal [facility] Comment on above: Performed By: #### U MICRO, ERUR #### [facility] [address] [place] [address] Dr. Alfredo Lizama CAST NONE SEEN Normal NONE SEEN [facility] Comment on above: Performed By: #### U MICRO, ERUR #### [facility] [address] [address] [address] Alfredo Lizama Crystals LM Nom (Urine sed) NONE SEEN Normal NONE SEEN [facility] Comment on above: Performed By: #### U MICRO, ERUR #### [facility] [address] [address] [address] Alfredo Lizama Epithelial cells LM Ql (Urine sed) FEW Abnormal NONE SEEN /RARE [facility] Comment on above: Performed By: #### U MICRO, ERUR #### [facility] [address] [address] [address] Alfredo Lizama MUCOUS NONE SEEN Normal NONE SEEN [facility] Comment on above: Performed By: #### U MICRO, ERUR #### [facility] [address] [address] [address] Alfredo Lizama RBC 5-10 Abnormal 0-2 [facility] Comment on above: Performed By: #### U MICRO, ERUR #### [facility] [address] [address] [address] Alfredo Lizama WBC (U) [#/Vol] /uL Abnormal NONE SEEN [facility] Comment on above: Performed By: #### U MICRO, ERUR #### [facility] [address] [address] [address] Alfredo Lizama Basic Metabolic Panelon 11-03 Calcium [Mass/Vol] 8.9 mg/dL Normal 8.2-10.2 [facility] Comment on above: Performed By: #### C BC, CMP, PAB #### [facility] [address] [place] [address] [place] Chloride [Moles/Vol] 101 mmol/L Normal 95-114 [facility] Comment on above: Performed By: #### C BC, CMP, PAB #### [facility] [address] [place] [address] [place] CO2 [Moles/Vol] 29.0 mmol/L Normal 22.0-30.0 [facility] Comment on above: Performed By: #### C BC, CMP, PAB #### [facility] [address] Creatinine [Mass/Vol] 0.48 mg/dL Normal 0.44-1.03 [facility] Comment on above: Performed By: #### C DARIUS PATEL, PAB #### [address] Creatinine Clr Calc Pharmacy 150.29 [facility] Comment on above: Result Comment: PERF ORMED BY: [place] [address] PATHOLOGIST PERSONNEL OFFICER HYU COX M.D. Performed By: #### C DARIUS PATEL, PAB #### [facility] [address] Estimated GFR ( July > 60 [facility] Comment on above: Result Comment: GFR estimated reference range: According to KDOQI guidelines, <60 ml/min/1.73m2 is sufficient to diagnose a patient with chronic kidney disease. Performed By: #### C DARIUS PATEL, PAB #### [address] Estimated GFR (Non- Am > 60 [facility] Comment on above: Performed By: #### C DARIUS PATEL, PAB #### [address] Glucose [Mass/Vol] 111 mg/dL High 70-100 [facility] Comment on above: Result Comment: [place] Glucose Reference Range is dependent on time and content of last meal. Glucose of more than 200 mg/dL in a nonstressed, ambulatory subject supports the diagnosis of Diabetes Mellitus. ADA recommended reference range Performed By: #### C DARIUS PATEL, PAB #### [facility] [address] Potassium [Moles/Vol] 3.6 mmol/L Normal 3.5-5.1 [facility] Comment on above: Performed By: #### C DARIUS PATEL, PAB #### [facility] [address] Sodium [Moles/Vol] 138 mmol/L Normal 136-146 [facility] Comment on above: Performed By: #### C BC, CMP, PAB #### [facility] [address] Urea nitrogen [Mass/Vol] 10 mg/dL Normal 9- [facility] Comment on above: Performed By: #### C BC, CMP, PAB #### [facility] [address] Complete Blood Count Auto Di ffon 11-19-2021 Basophils (Bld) [#/Vol] 0.1 10*3/uL Normal 0.0-0.2 [facility] Comment on above: Result Comment: PERF ORMED BY: [place] [address] PATHOLOGIST PERSONNEL OFFICER HUY COX M.D. Performed By: #### C BC, CMP, PAB #### [address] Basophils/100 WBC (Bld) 0.8 % Normal . [facility] Comment on above: Performed By: #### C BC, CMP, PAB #### [facility] [address] [place] [address] [place] Eosinophils (Bld) [#/Vol] 0.4 10*3/uL Normal 0.0-0.45 [facility] Comment on above: Performed By: #### C BC, CMP, PAB #### [place] [address] [place] Eosinophils/100 WBC (Bld) 5.8 % Normal . [facility] Comment on above: Performed By: #### C BC, CMP, PAB #### [facility] [address] Erythrocyte distribution width (RBC) [Ratio] 14.3 % Normal 11.9-15.3 [facility] Comment on above: Performed By: #### C BC, CMP, PAB #### [facility] [address] Hematocrit (Bld) [Volume fraction] 36.0 % Normal 34.0-46.4 [facility] Comment on above: Performed By: #### C BC, CMP, PAB #### [facility] [address] [place] [address] [place] Hemoglobin (Bld) [Mass/Vol] 11.9 g/dL Normal 11.8-15.4 [facility] Comment on above: Performed By: #### C BC, CMP, PAB #### [facility] [address] Lymphocytes (Bld) [#/Vol] 2.7 10*3/uL Normal 1.00-4.8 [facility] Comment on above: Performed By: #### C BC, CMP, PAB #### [facility] [address] Lymphocytes/100 WBC (Bld) 37.6 % Normal . [facility] Comment on above: Performed By: #### C BC, CMP, PAB #### [facility] [address] MCH (RBC) [Entitic mass] 28.1 pg Normal 24.7-34.3 [facility] Comment on above: Performed By: #### C BC, CMP, PAB #### [facility] [address] [place] [address] [place] MCV (RBC) [Entitic vol] 85.3 fL Normal 80-100 [facility] Comment on above: Performed By: #### C BC, CMP, PAB #### [facility] [address] Mean Corpuscular HGB Conc 32.9 g/dL Normal 32.0-35.0 [facility] Comment on above: Performed By: #### C BC, CMP, PAB #### [facility] [address] [place] [address] [place] Monocytes (Bld) [#/Vol] 0.4 10*3/uL Normal 0.0-0.8 [facility] Comment on above: Performed By: #### C BC, CMP, PAB #### [facility] [address] [place] [address] [place] Monocytes/100 WBC (Bld) 5.2 % Normal . [facility] Comment on above: Performed By: #### C BC, CMP, PAB #### [facility] [address] [place] [address] [place] Neutrophils (Bld) [#/Vol] 3.7 10*3/uL Normal 1.8-7.7 [facility] Comment on above: Performed By: #### C BC, CMP, PAB #### [facility] [address] Neutrophils/100 WBC (Bld) 50.6 % Normal . [facility] Comment on above: Performed By: #### C BC, CMP, PAB #### [facility] [address] Nucleated RBC/100 WBC (Bld) [Ratio] 0.0 % Normal 0-0.5 [facility] Comment on above: Performed By: #### C BC, CMP, PAB #### [facility] [address] Platelet mean volume (Bld) [Entitic vol] 7.6 fL Normal 6.3-10.7 [facility] Comment on above: Performed By: #### C BC, CMP, PAB #### [facility] [address] Platelets (Bld) [#/Vol] 252 10*3/uL Normal 150-450 [facility] Comment on above: Performed By: #### C BC, CMP, PAB #### [facility] [address] [place] [address] [place] RBC (Bld) [#/Vol] 4.22 10*6/uL Normal 3.60-5.00 [facility] Comment on above: Performed By: #### C BC, CMP, PAB #### [facility] [address] [place] [address] [place] WBC (Bld) [#/Vol] 7.2 10*3/uL Normal 4.5-11.0 [facility] Comment on above: Performed By: #### C BC, CMP, PAB #### [facility] [address] [place] [address] [place] Ammoniaon 11-11-2021 Ammonia (P) [Moles/Vol] 26 umol/L Normal 11-35 [facility] Comment on above: Result Comment: PERF ORMED BY: [place] [address] PATHOLOGIST PERSONNEL OFFICER HUY COX M.D. Performed By: #### C BC, CMP, PAB #### [address] Hepatic Panelon 11-11-2021 Albumin [Mass/Vol] 3.0 g/dL Low 3.2-5.5 [facility] Comment on above: Performed By: #### C BC, CMP, PAB #### [address] Albumin/Globulin [Mass ratio] 1.0 {ratio} Normal [facility] Comment on above: Performed By: #### C BC, CMP, PAB #### [address] ALP [Catalytic activity/Vol] 187 U/L High 32-92 [facility] Comment on above: Result Comment: PERF ORMED BY: [place] [address] PATHOLOGIST PERSONNEL OFFICER HUY COX M.D. Performed By: #### C BC, CMP, PAB #### [address] ALT [Catalytic activity/Vol] 54 U/L Normal 10-60 [facility] Comment on above: Performed By: #### C BC, CMP, PAB #### [address] AST [Catalytic activity/Vol] 39 U/L Normal 10-42 [facility] Comment on above: Performed By: #### C BC, CMP, PAB #### [address] Bilirubin [Mass/Vol] 0.3 mg/dL Normal 0.3-1.2 [facility] Comment on above: Performed By: #### C BC, CMP, PAB #### [facility] [address] [place] [address] Bilirubin,Indirect Not performed Normal [facility] Comment on above: Performed By: #### C BC, CMP, PAB #### [facility] [address] Bilirubin.indirect [Mass/Vol] mg/dL Normal 0.0-0.4 [facility] Comment on above: Performed By: #### C BC, CMP, PAB #### [facility] [address] [place] [address] Globulin (S) [Mass/Vol] 3.0 g/dL Normal [facility] Comment on above: Performed By: #### C BC, CMP, PAB #### [address] Protein [Mass/Vol] 6.0 g/dL Low 6.1-7.9 [facility] Comment on above: Performed By: #### C BC, CMP, PAB #### [address] Hepatitis Acute Panelon 03-0 HBsAg Screen Negative Normal Negative [facility] Comment on above: Performed By: #### C BC, CMP, PAB #### [address] Hepatitis A Antibody IgM Negative Normal Negative [facility] Comment on above: Performed By: #### C BC, CMP, PAB #### [facility] [address] [place] [address] Hepatitis B Core Antibody IgM Negative Normal Negative [facility] Comment on above: Performed By: #### C BC, CMP, PAB #### [facility] [address] [place] [address] Hepatitis C Virus Antibody 0.2 Normal 0.0-0.9 [facility] Comment on above: Performed By: #### C BC, CMP, PAB #### [facility] [address] [place] [address] Interpretation Hepatitis C Normal . [facility] Comment on above: Result Comment: Dov chun Not infected with HCV, unless recent infection is suspected or other evidence exists to indicate HCV infection. Performed at: - [facility] [address] [id number] [employer]: Pedro Luis José PhD, Phone: [phone] PERFORMED BY: [place] [address] PATHOLOGIST PERSONNEL OFFICER HUY COX M.D. Performed By: #### C BC, CMP, PAB #### [address] [place] liveron 11-11-2021 liver [facility] Main [place] [address] [place] [address] Ultrasound Report Signed Patient: Morales Lee MR#: [id number] : 1975 Acct:[id number] Age/Sex: 46 / F ADM Date: 10/29/21 Loc: Room: [address] [place] [address] Type: ADM IN Attending Dr: Richard Acevedo [...] Alexandru Pond M.D.11/11/2021 10:23 AM Dictation Location: [place] [address] Tech: Ermelinda Diaz Transcribed By: CORTNEY 11/11/21 1023 Dictated By: Alexandru Pond DO 11/11/21 1018 Signed By: 11/11/21 1023 Normal [facility] Complete Blood Count Auto Di ffon 11-10-2021 Basophils (Bld) [#/Vol] 0.1 10*3/uL Normal 0.0-0.2 [facility] Comment on above: Result Comment: PERF ORMED BY: [place] [address] PATHOLOGIST PERSONNEL OFFICER HUY COX M.D. Performed By: #### C BC #### [address] Basophils/100 WBC (Bld) 1.2 % Normal . [facility] Comment on above: Performed By: #### C BC #### [address] Eosinophils (Bld) [#/Vol] 0.3 10*3/uL Normal 0.0-0.45 [facility] Comment on above: Performed By: #### C BC #### [address] Eosinophils/100 WBC (Bld) 5.9 % Normal . [facility] Comment on above: Performed By: #### C BC #### [address] Erythrocyte distribution width (RBC) [Ratio] 14.2 % Normal 11.9-15.3 [facility] Comment on above: Performed By: #### C BC #### [address] Hematocrit (Bld) [Volume fraction] 37.1 % Normal 34.0-46.4 [facility] Comment on above: Performed By: #### C BC #### [address] Hemoglobin (Bld) [Mass/Vol] 12.3 g/dL Normal 11.8-15.4 [facility] Comment on above: Performed By: #### C BC #### [address] Lymphocytes (Bld) [#/Vol] 2.0 10*3/uL Normal 1.00-4.8 [facility] Comment on above: Performed By: #### C BC #### [address] Lymphocytes/100 WBC (Bld) 36.5 % Normal . [facility] Comment on above: Performed By: #### C BC #### [address] MCH (RBC) [Entitic mass] 28.6 pg Normal 24.7-34.3 [facility] Comment on above: Performed By: #### C BC #### [address] MCV (RBC) [Entitic vol] 86.5 fL Normal 80-100 [facility] Comment on above: Performed By: #### C BC #### [address] Mean Corpuscular HGB Conc 33.1 g/dL Normal 32.0-35.0 [facility] Comment on above: Performed By: #### C BC #### [address] Monocytes (Bld) [#/Vol] 0.3 10*3/uL Normal 0.0-0.8 [facility] Comment on above: Performed By: #### C BC #### [address] Monocytes/100 WBC (Bld) 5.3 % Normal . [facility] Comment on above: Performed By: #### C BC #### [place] [address] [place] Neutrophils (Bld) [#/Vol] 2.8 10*3/uL Normal 1.8-7.7 [facility] Comment on above: Performed By: #### C BC #### [place] [address] [place] Neutrophils/100 WBC (Bld) 51.1 % Normal . [facility] Comment on above: Performed By: #### C BC #### [address] Nucleated RBC/100 WBC (Bld) [Ratio] 0.1 % Normal 0-0.5 [facility] Comment on above: Performed By: #### C BC #### [address] Platelet mean volume (Bld) [Entitic vol] 7.8 fL Normal 6.3-10.7 [facility] Comment on above: Performed By: #### C BC #### [address] Platelets (Bld) [#/Vol] 214 10*3/uL Normal 150-450 [facility] Comment on above: Performed By: #### C BC #### [address] RBC (Bld) [#/Vol] 4.28 10*6/uL Normal 3.60-5.00 [facility] Comment on above: Performed By: #### C BC #### [address] WBC (Bld) [#/Vol] 5.4 10*3/uL Normal 4.5-11.0 [facility] Comment on above: Performed By: #### C BC #### [address] Comprehensive Metabolic Pane shree 11-10-2021 Albumin [Mass/Vol] 2.9 g/dL Low 3.2-5.5 [facility] Comment on above: Performed By: #### C BC, CMP, PAB #### [address] Albumin/Globulin [Mass ratio] 0.9 {ratio} Normal [facility] Comment on above: Performed By: #### C BC, CMP, PAB #### [address] ALP [Catalytic activity/Vol] 201 U/L High 32-92 [facility] Comment on above: Performed By: #### C BC CMP, PAB #### [facility] [address] ALT [Catalytic activity/Vol] 67 U/L High 10-60 [facility] Comment on above: Performed By: #### C BC, CMP, PAB #### [facility] [address] AST [Catalytic activity/Vol] 66 U/L High 10-42 [facility] Comment on above: Performed By: #### C BC, CMP, PAB #### [facility] [address] Bilirubin [Mass/Vol] 0.4 mg/dL Normal 0.3-1.2 [facility] Comment on above: Performed By: #### C BC, CMP, PAB #### [facility] [address] Calcium [Mass/Vol] 8.7 mg/dL Normal 8.2-10.2 [facility] Comment on above: Performed By: #### C BC CMP, PAB #### [facility] [address] Chloride [Moles/Vol] 100 mmol/L Normal 95-114 [facility] Comment on above: Performed By: #### C BC, CMP, PAB #### [facility] [address] CO2 [Moles/Vol] 26.4 mmol/L Normal 22.0-30.0 [facility] Comment on above: Performed By: #### C BC, CMP, PAB #### [facility] [address] [place] [address] [place] Creatinine [Mass/Vol] 0.50 mg/dL Normal 0.44-1.03 [facility] Comment on above: Performed By: #### C BC, CMP, PAB #### [facility] [address] [place] [address] [place] Creatinine Clr Calc Pharmacy 142.11 Normal [facility] Comment on above: Result Comment: PERF ORMED BY: [place] [address] PATHOLOGIST PERSONNEL OFFICER HUY COX M.D. Performed By: #### C BC, CMP, PAB #### [address] Estimated GFR ( July > 60 [facility] Comment on above: Result Comment: GFR estimated reference range: According to KDOQI guidelines, <60 ml/min/1.73m2 is sufficient to diagnose a patient with chronic kidney disease. Performed By: #### C BC, CMP, PAB #### [address] Estimated GFR (Non- Am > 60 [facility] Comment on above: Performed By: #### C BC, CMP, PAB #### [address] Globulin (S) [Mass/Vol] 3.1 g/dL Normal [facility] Comment on above: Performed By: #### C BC, CMP, PAB #### [address] Glucose [Mass/Vol] 110 mg/dL High 70-100 [facility] Comment on above: Result Comment: [place] Glucose Reference Range is dependent on time and content of last meal. Glucose of more than 200 mg/dL in a nonstressed, ambulatory subject supports the diagnosis of Diabetes Mellitus. ADA recommended reference range Performed By: #### C BC, CMP, PAB #### [address] Potassium [Moles/Vol] 4.0 mmol/L Normal 3.5-5.1 [facility] Comment on above: Performed By: #### C BC, CMP, PAB #### [address] Protein [Mass/Vol] 6.0 g/dL Low 6.1-7.9 [facility] Comment on above: Performed By: #### C BC, CMP, PAB #### [facility] [address] [place] [id number] [place] Sodium [Moles/Vol] 136 mmol/L Normal 136-146 [facility] Comment on above: Performed By: #### C BC, CMP, PAB #### [facility] [address] [place] [id number] [place] Urea nitrogen [Mass/Vol] 8 mg/dL Low 9-23 [facility] Comment on above: Performed By: #### C BC, CMP, PAB #### [facility] [address] [place] [address] [place] Dipstick and Microscopicon 0 11-10-2021 Appearance (U) Turbid Critically abnormal Clear [facility] Comment on above: Order Comment: Name Collection Type:: Alvares Catheter Performed By: #### C BC, CMP, PAB #### [facility] [address] [place] [address] [place] Bacteria,Urine 3+ High None Seen [facility] Comment on above: Order Comment: Name Collection Type:: Alvares Catheter Performed By: #### C BC, CMP, PAB #### [facility] [address] [place] [address] [place] Bilirubin,Urine Negative Normal Negative [facility] Comment on above: Order Comment: Name Collection Type:: Alvares Catheter Performed By: #### C BC, CMP, PAB #### [facility] [address] [place] [id number] [place] Color (U) Yellow Normal Yellow [facility] Comment on above: Order Comment: Name Collection Type:: Alvares Catheter Performed By: #### C BC, CMP, PAB #### [facility] [address] [place] [id number] [place] Glucose Ql (U) Normal Normal Normal [facility] Comment on above: Order Comment: Name Collection Type:: Alvares Catheter Performed By: #### C BC, CMP, PAB #### [facility] [address] [place] [id number] [place] Hyaline Casts,Urine None Seen Normal 0-1 [facility] Comment on above: Order Comment: Name Collection Type:: Alvares Catheter Performed By: #### C BC, CMP, PAB #### [facility] [address] [place] [address] [place] Ketones Ql (U) Negative Normal Negative [facility] Comment on above: Order Comment: Name Collection Type:: Alvares Catheter Performed By: #### C BC, CMP, PAB #### [facility] [address] [place] [address] Leukocyte esterase Test strip Ql (U) 3+ High Negative [facility] Comment on above: Order Comment: Name Collection Type:: Alvares Catheter Performed By: #### C BC, CMP, PAB #### [address] Nitrite,Urine Positive High Negative [facility] Comment on above: Order Comment: Name Collection Type:: Alvares Catheter Performed By: #### C BC, CMP, PAB #### [address] Occult Blood,Urine 2+ High Negative [facility] Comment on above: Order Comment: Name Collection Type:: Alvares Catheter Result Comment: PERF ORMED BY: [place] [address] PATHOLOGIST PERSONNEL OFFICER HUY COX M.D. Performed By: #### C BC, CMP, PAB #### [address] Other Casts,Urine None Seen Normal None Seen [facility] Comment on above: Order Comment: Name Collection Type:: Alvares Catheter Result Comment: PERF ORMED BY: [place] [address] PATHOLOGIST PERSONNEL OFFICER HUY COX M.D. Performed By: #### C BC, CMP, PAB #### [facility] [address] [place] [address] [place] pH (U) 8.5 [pH] Normal 5.0-9.0 [facility] Comment on above: Order Comment: Name Collection Type:: Alvares Catheter Performed By: #### C BC, CMP, PAB #### [address] [address] [place] Protein,Urine Negative Normal Negative [facility] Comment on above: Order Comment: Name Collection Type:: Alvares Catheter Performed By: #### C BC, CMP, PAB #### [facility] [address] [place] [address] RBC,Urine 1-2 Normal 0-4 [facility] Comment on above: Order Comment: Name Collection Type:: Alvares Catheter Performed By: #### C BC, CMP, PAB #### [facility] [address] [place] [address] Specificy Barton,Urine 1.006 Normal 1.00 1-1.03 0 [facility] Comment on above: Order Comment: Name Collection Type:: Alvares Catheter Performed By: #### C BC, CMP, PAB #### [facility] [address] [place] [address] Squamous Epithelial Cell,Urine 3-4 High 0-2 [facility] Comment on above: Order Comment: Name Collection Type:: Alvares Catheter Performed By: #### C BC, CMP, PAB #### [facility] [address] [place] [address] Triple Phosphate Crystal,Urine 2+ Normal [facility] Comment on above: Order Comment: Name Collection Type:: Alvares Catheter Performed By: #### C BC, CMP, PAB #### [facility] [address] [place] [address] Urobilinogen,Urine Normal Normal Normal [facility] Comment on above: Order Comment: Name Collection Type:: Alvares Catheter Performed By: #### C BC, CMP, PAB #### [facility] [address] [place] [address] [place] WBC,Urine 20-49 High 0-4 [facility] Comment on above: Order Comment: Name Collection Type:: Alvares Catheter Performed By: #### C BC, CMP, PAB #### [facility] [address] [place] [address] [place] Urine Cultureon 11-10-2021 Bacteria identified Cx Nom (U) ORGANISM: Providencia rettgeri (O:PRORET) [place] Count >100,000 Aerobic JOSE Charge (NUC86) SUSCEPTIBILITY [...] <4 Tigecycline S <2 Tobramycin S <4 Trimethoprim/Sulfamethoxa zole R >38 S = SUSCEPTIBLE I = [...] RESISTANT TO ALL B-LACTAM DRUGS. PERFORMED BY: [place] [address] PATHOLOGIST PERSONNEL OFFICER HUY COX M.D. [facility] Comment on above: Performed By: #### C BC, CMP, PAB #### [address] Basic Metabolic Panelon 03-0 Calcium [Mass/Vol] 8.7 mg/dL Normal 8.2-10.2 [facility] Comment on above: Performed By: #### B MP, CBC #### [address] Chloride [Moles/Vol] 102 mmol/L Normal 95-114 [facility] Comment on above: Performed By: #### B MP, CBC #### [address] CO2 [Moles/Vol] 25.5 mmol/L Normal 22.0-30.0 [facility] Comment on above: Performed By: #### B MP, CBC #### [address] Creatinine [Mass/Vol] 0.71 mg/dL Normal 0.44-1.03 [facility] Comment on above: Performed By: #### B MP, CBC #### [address] Creatinine Clr Calc Pharmacy 100.08 [facility] Comment on above: Result Comment: PERF ORMED BY: [place] [address] PATHOLOGIST PERSONNEL OFFICER HUY COX M.D. Performed By: #### B MP, CBC #### [address] Estimated GFR ( July > 60 [facility] Comment on above: Result Comment: GFR estimated reference range: According to KDOQI guidelines, <60 ml/min/1.73m2 is sufficient to diagnose a patient with chronic kidney disease. Performed By: #### B MP, CBC #### [address] Estimated GFR (Non- Am > 60 [facility] Comment on above: Performed By: #### B MP, CBC #### [address] Glucose [Mass/Vol] 104 mg/dL High 70-100 [facility] Comment on above: Result Comment: [place] Glucose Reference Range is dependent on time and content of last meal. Glucose of more than 200 mg/dL in a nonstressed, ambulatory subject supports the diagnosis of Diabetes Mellitus. ADA recommended reference range Performed By: #### B MP, CBC #### [address] Potassium [Moles/Vol] 4.1 mmol/L Normal 3.5-5.1 [facility] Comment on above: Performed By: #### B MP, CBC #### [facility] [address] Sodium [Moles/Vol] 137 mmol/L Normal 136-146 [facility] Comment on above: Performed By: #### B MP, CBC #### [facility] [address] Urea nitrogen [Mass/Vol] 10 mg/dL Normal 9-23 [facility] Comment on above: Performed By: #### B MP, CBC #### [address] Complete Blood Count Auto Di ffon 11-06-2021 Basophils (Bld) [#/Vol] 0.1 10*3/uL Normal 0.0-0.2 [facility] Comment on above: Result Comment: PERF ORMED BY: [place] [address] PATHOLOGIST PERSONNEL OFFICER HUY COX M.D. Performed By: #### B MP, CBC #### [address] Basophils/100 WBC (Bld) 0.8 % Normal . [facility] Comment on above: Performed By: #### B MP, CBC #### [address] Eosinophils (Bld) [#/Vol] 0.4 10*3/uL Normal 0.0-0.45 [facility] Comment on above: Performed By: #### B MP, CBC #### [address] Eosinophils/100 WBC (Bld) 5.5 % Normal . [facility] Comment on above: Performed By: #### B MP, CBC #### [address] Erythrocyte distribution width (RBC) [Ratio] 14.2 % Normal 11.9-15.3 [facility] Comment on above: Performed By: #### B MP, CBC #### [address] Hematocrit (Bld) [Volume fraction] 36.0 % Normal 34.0-46.4 [facility] Comment on above: Performed By: #### B MP, CBC #### [address] Hemoglobin (Bld) [Mass/Vol] 12.0 g/dL Normal 11.8-15.4 [facility] Comment on above: Performed By: #### B MP, CBC #### [address] Lymphocytes (Bld) [#/Vol] 2.4 10*3/uL Normal 1.00-4.8 [facility] Comment on above: Performed By: #### B MP, CBC #### [address] Lymphocytes/100 WBC (Bld) 35.2 % Normal . [facility] Comment on above: Performed By: #### B MP, CBC #### [address] MCH (RBC) [Entitic mass] 28.9 pg Normal 24.7-34.3 [facility] Comment on above: Performed By: #### B MP, CBC #### [address] MCV (RBC) [Entitic vol] 86.4 fL Normal 80-100 [facility] Comment on above: Performed By: #### B MP, CBC #### [address] Mean Corpuscular HGB Conc 33.4 g/dL Normal 32.0-35.0 [facility] Comment on above: Performed By: #### B MP, CBC #### [address] Monocytes (Bld) [#/Vol] 0.3 10*3/uL Normal 0.0-0.8 [facility] Comment on above: Performed By: #### B MP, CBC #### [place] [address] [place] Monocytes/100 WBC (Bld) 4.8 % Normal . [facility] Comment on above: Performed By: #### B MP, CBC #### [facility] [address] [place] [address] [place] Neutrophils (Bld) [#/Vol] 3.7 10*3/uL Normal 1.8-7.7 [facility] Comment on above: Performed By: #### B MP, CBC #### [facility] [address] Neutrophils/100 WBC (Bld) 53.7 % Normal . [facility] Comment on above: Performed By: #### B MP, CBC #### [facility] [address] Nucleated RBC/100 WBC (Bld) [Ratio] 0.0 % Normal 0-0.5 [facility] Comment on above: Performed By: #### B MP, CBC #### [facility] [address] Platelet mean volume (Bld) [Entitic vol] 8.2 fL Normal 6.3-10.7 [facility] Comment on above: Performed By: #### B MP, CBC #### [facility] [address] [place] [address] [place] Platelets (Bld) [#/Vol] 235 10*3/uL Normal 150-450 [facility] Comment on above: Performed By: #### B MP, CBC #### [facility] [address] [place] [address] [place] RBC (Bld) [#/Vol] 4.17 10*6/uL Normal 3.60-5.00 [facility] Comment on above: Performed By: #### B MP, CBC #### [facility] [address] [place] [address] [place] WBC (Bld) [#/Vol] 6.9 10*3/uL Normal 4.5-11.0 [facility] Comment on above: Performed By: #### B MP, CBC #### [facility] [address] US venous duplex LE BIon US venous duplex LE BI [facility] [place] [address] [place] [address] Ultrasound Report Signed Patient: Morales Lee MR#: [id number] : 1975 Acct:[id number] Age/Sex: 46 / F ADM Date: 10/29/21 Loc: Room: [address] [place] [address] Type: ADM IN Attending Dr: Richard Acevedo [...] Carlos Neal MD11/04/2021 11:36 AM Dictation Location: [place] [address] Tech: Natalia Rivas Transcribed By: CORTNEY 11/04/21 1136 Dictated By: Juan Carlos Neal MD 11/04/21 1135 Signed By: 11/04/21 1136 Normal [facility] Complete Blood Count Auto Di ffon 10-30-2021 Basophils (Bld) [#/Vol] 0.0 10*3/uL Normal 0.0-0.2 [facility] Comment on above: Result Comment: PERF ORMED BY: [place] [address] PATHOLOGIST PERSONNEL OFFICER HUY COX M.D. Performed By: #### C BC, CMP, PAB #### [address] Basophils/100 WBC (Bld) 0.6 % Normal . [facility] Comment on above: Performed By: #### C BC, CMP, PAB #### [facility] [address] Eosinophils (Bld) [#/Vol] 0.4 10*3/uL Normal 0.0-0.45 [facility] Comment on above: Performed By: #### C BC, CMP, PAB #### [facility] [address] [place] [address] [place] Eosinophils/100 WBC (Bld) 4.9 % Normal . [facility] Comment on above: Performed By: #### C BC, CMP, PAB #### [facility] [address] Erythrocyte distribution width (RBC) [Ratio] 14.3 % Normal 11.9-15.3 [facility] Comment on above: Performed By: #### C BC, CMP, PAB #### [address] Hematocrit (Bld) [Volume fraction] 36.1 % Normal 34.0-46.4 [facility] Comment on above: Performed By: #### C BC, CMP, PAB #### [address] Hemoglobin (Bld) [Mass/Vol] 12.1 g/dL Normal 11.8-15.4 [facility] Comment on above: Performed By: #### C BC, CMP, PAB #### [place] [address] [place] Lymphocytes (Bld) [#/Vol] 2.8 10*3/uL Normal 1.00-4.8 [facility] Comment on above: Performed By: #### C BC, CMP, PAB #### [place] [address] [place] Lymphocytes/100 WBC (Bld) 39.0 % Normal . [facility] Comment on above: Performed By: #### C BC, CMP, PAB #### [address] MCH (RBC) [Entitic mass] 28.7 pg Normal 24.7-34.3 [facility] Comment on above: Performed By: #### C BC, CMP, PAB #### [facility] [address] MCV (RBC) [Entitic vol] 85.7 fL Normal 80-100 [facility] Comment on above: Performed By: #### C BC, CMP, PAB #### [facility] [address] Mean Corpuscular HGB Conc 33.4 g/dL Normal 32.0-35.0 [facility] Comment on above: Performed By: #### C BC, CMP, PAB #### [address] Monocytes (Bld) [#/Vol] 0.4 10*3/uL Normal 0.0-0.8 [facility] Comment on above: Performed By: #### C BC, CMP, PAB #### [address] Monocytes/100 WBC (Bld) 5.2 % Normal . [facility] Comment on above: Performed By: #### C BC, CMP, PAB #### [address] Neutrophils (Bld) [#/Vol] 3.6 10*3/uL Normal 1.8-7.7 [facility] Comment on above: Performed By: #### C BC, CMP, PAB #### [place] [address] [place] Neutrophils/100 WBC (Bld) 50.3 % Normal . [facility] Comment on above: Performed By: #### C BC, CMP, PAB #### [place] [address] [place] Nucleated RBC/100 WBC (Bld) [Ratio] 0.0 % Normal 0-0.5 [facility] Comment on above: Performed By: #### C BC, CMP, PAB #### [place] [address] [place] Platelet mean volume (Bld) [Entitic vol] 8.1 fL Normal 6.3-10.7 [facility] Comment on above: Performed By: #### C BC, CMP, PAB #### [facility] [address] Platelets (Bld) [#/Vol] 261 10*3/uL Normal 150-450 [facility] Comment on above: Performed By: #### C BC, CMP, PAB #### [address] RBC (Bld) [#/Vol] 4.22 10*6/uL Normal 3.60-5.00 [facility] Comment on above: Performed By: #### C BC, CMP, PAB #### [address] WBC (Bld) [#/Vol] 7.2 10*3/uL Normal 4.5-11.0 [facility] Comment on above: Performed By: #### C BC, CMP, PAB #### [address] Comprehensive Metabolic Pane shree 10-30-2021 Albumin [Mass/Vol] 2.8 g/dL Low 3.2-5.5 [facility] Comment on above: Performed By: #### C BC, CMP, PAB #### [address] Albumin/Globulin [Mass ratio] 1.0 {ratio} Normal [facility] Comment on above: Performed By: #### C BC, CMP, PAB #### [address] ALP [Catalytic activity/Vol] 116 U/L High 32-92 [facility] Comment on above: Performed By: #### C BC, CMP, PAB #### [address] ALT [Catalytic activity/Vol] 20 U/L Normal 10-60 [facility] Comment on above: Performed By: #### C BC, CMP, PAB #### [facility] [address] [place] [id number] [facility] AST [Catalytic activity/Vol] 22 U/L Normal 10-42 [facility] Comment on above: Performed By: #### C BC CMP, PAB #### [facility] [address] [place] [id number] [facility] Bilirubin [Mass/Vol] 0.5 mg/dL Normal 0.3-1.2 [facility] Comment on above: Performed By: #### C BC CMP, PAB #### [facility] [address] Calcium [Mass/Vol] 8.7 mg/dL Normal 8.2-10.2 [facility] Comment on above: Performed By: #### C JORGE CMP, PAB #### [facility] [address] Chloride [Moles/Vol] 105 mmol/L Normal 95-114 [facility] Comment on above: Performed By: #### C BC CMP, PAB #### [facility] [address] [place] [address] [place] CO2 [Moles/Vol] 26.8 mmol/L Normal 22.0-30.0 [facility] Comment on above: Performed By: #### C JORGE CMP, PAB #### [facility] [address] [place] [id number] [place] Creatinine [Mass/Vol] 0.51 mg/dL Normal 0.44-1.03 [facility] Comment on above: Performed By: #### C BC CMP, PAB #### [facility] [address] [place] [id number] [place] Creatinine Clr Calc Pharmacy 123.73 [facility] Comment on above: Performed By: #### C BC CMP, PAB #### [facility] [address] [place] [address] [place] Estimated GFR ( July > 60 Normal [facility] Comment on above: Result Comment: GFR estimated reference range: According to KDOQI guidelines, <60 ml/min/1.73m2 is sufficient to diagnose a patient with chronic kidney disease. Performed By: #### C BC CMP, PAB #### [facility] [address] Estimated GFR (Non- Am > 60 Normal [facility] Comment on above: Performed By: #### C DARIUS PATEL, PAB #### [facility] [address] Globulin (S) [Mass/Vol] 2.8 g/dL Normal [facility] Comment on above: Performed By: #### C JORGE CMP, PAB #### [address] Glucose [Mass/Vol] 115 mg/dL High 70-100 [facility] Comment on above: Result Comment: [facility] Glucose Reference Range is dependent on time and content of last meal. Glucose of more than 200 mg/dL in a nonstressed, ambulatory subject supports the diagnosis of Diabetes Mellitus. ADA recommended reference range Performed By: #### C DARIUS PATEL, PAB #### [address] Potassium [Moles/Vol] 3.7 mmol/L Normal 3.5-5.1 [facility] Comment on above: Performed By: #### C DARIUS PATEL, PAB #### [address] Protein [Mass/Vol] 5.6 g/dL Low 6.1-7.9 [facility] Comment on above: Performed By: #### C JORGE CMP, PAB #### [address] Sodium [Moles/Vol] 140 mmol/L Normal 136-146 [facility] Comment on above: Performed By: #### C JORGE CMP, PAB #### [address] Urea nitrogen [Mass/Vol] 7 mg/dL Low 9-23 [facility] Comment on above: Performed By: #### C BC, CMP, PAB #### [place] [address] [place] Dipstick and Microscopicon 0 2-25-2022 Appearance (U) Clear Normal Clear [facility] Comment on above: Order Comment: Name Collection Type:: Voided Performed By: #### A DDONUAPLUS, CUU #### [address] Bacteria,Urine 4+ High None Seen [facility] Comment on above: Order Comment: Name Collection Type:: Voided Performed By: #### A DDONUAPLUS, CUU #### [place] [address] [place] Bilirubin,Urine Negative Normal Negative [facility] Comment on above: Order Comment: Name Collection Type:: Voided Performed By: #### A DDONUAPLUS, CUU #### [address] Color (U) Yellow Normal Yellow [facility] Comment on above: Order Comment: Name Collection Type:: Voided Performed By: #### A DDONUAPLUS, CUU #### [address] Glucose Ql (U) Normal Normal Normal [facility] Comment on above: Order Comment: Name Collection Type:: Voided Performed By: #### A DDONUAPLUS, CUU #### [address] Hyaline Casts,Urine 0-8 Normal 0-8 [facility] Comment on above: Order Comment: Name Collection Type:: Voided Result Comment: PERF ORMED BY: [place] [address] PATHOLOGIST PERSONNEL OFFICER HUY COX M.D. Performed By: #### A DDONUAPLUS, CUU #### [place] [address] [place] Ketones Ql (U) Negative Normal Negative [facility] Comment on above: Order Comment: Name Collection Type:: Voided Performed By: #### A DDONUAPLUS, CUU #### [place] [address] [place] Leukocyte esterase Test strip Ql (U) 3+ High Negative [facility] Comment on above: Order Comment: Name Collection Type:: Voided Performed By: #### A DDONUAPLUS, CUU #### [address] Nitrite,Urine Positive High Negative [facility] Comment on above: Order Comment: Name Collection Type:: Voided Performed By: #### A DDONUAPLUS, CUU #### [address] Occult Blood,Urine Negative Normal Negative [facility] Comment on above: Order Comment: Name Collection Type:: Voided Result Comment: PERF ORMED BY: [place] [address] PATHOLOGIST PERSONNEL OFFICER HUY COX M.D. Performed By: #### A DDONUAPLUS, CUU #### [address] pH (U) 5.5 [pH] Normal 5.0-9.0 [facility] Comment on above: Order Comment: Name Collection Type:: Voided Performed By: #### A DDONUAPLUS, CUU #### [address] Protein,Urine Negative Normal Negative [facility] Comment on above: Order Comment: Name Collection Type:: Voided Performed By: #### A DDONUAPLUS, CUU #### [place] [address] [place] RBC LM.HPF (Urine sed) [#/Area] 0 /[HPF] Normal 0-4 [facility] Comment on above: Order Comment: Name Collection Type:: Voided Performed By: #### A DDONUAPLUS, CUU #### [place] [address] [place] Specificy [place],Urine 1.012 Normal 1.00 1-1.03 0 [facility] Comment on above: Order Comment: Name Collection Type:: Voided Performed By: #### A DDONUAPLUS, CUU #### [facility] [address] [place] [address] Squamous Epithelial Cell,Urine 0-1 Normal 0-2 [facility] Comment on above: Order Comment: Name Collection Type:: Voided Performed By: #### A DDONUAPLUS, CUU #### [address] Urobilinogen,Urine Normal Normal Normal [facility] Comment on above: Order Comment: Name Collection Type:: Voided Performed By: #### A DDONUAPLUS, CUU #### [address] WBC,Urine 20-49 High 0-4 [facility] Comment on above: Order Comment: Name Collection Type:: Voided Performed By: #### A DDONUAPLUS, CUU #### [address] Prealbuminon 10-30-2021 Prealbumin [Mass/Vol] 13.1 mg/dL Low 18.0-38.0 [facility] Comment on above: Result Comment: PERF ORMED BY: [place] [address] PATHOLOGIST PERSONNEL OFFICER HUY COX M.D. Performed By: #### C BC, CMP, PAB #### [address] Urine Cultureon 10-30-2021 Bacteria identified Cx Nom (U) ORGANISM: Escherichia coli (O:ESCCOL) [place] Count >100,000 Aerobic JOSE Charge (NUC86) SUSCEPTIBILITY [...] <4 Tigecycline S <2 Tobramycin S <4 Trimethoprim/Sulfamethoxa zole S <2/38 S = SUSCEPTIBLE I = [...] RESISTANT TO ALL B-LACTAM DRUGS. PERFORMED BY: [place] [address] PATHOLOGIST PERSONNEL OFFICER HUY COX M.D. Normal [facility] Comment on above: Performed By: #### A DDCHANTEUAKRIS, RUBIU #### [address] COVID-19 FRon 10-29-2021 SARS-CoV-2 (COVID-19) RNA ADRIÁN+probe Ql (Unsp spec) Negative Normal Negative [facility] Comment on above: Order Comment: Healt hcare Worker?: N Result Comment: Testing for SARS-CoV-2 by RT-PCR This test was developed and its performance characteristics determined by [place], [employer] and validated at the [facility] [...] or revoked sooner. PERFORMED BY: [facility] [address] [place] [address] PATHOLOGIST PERSONNEL OFFICER HUY COX M.D. Performed By: #### C OVID 19 [facility] #### [facility] [address] Clinical Event Note-Need for Hospital Bedon [...] of the lumbar region. Provider/Team Contact Info-Pager [phone] Electronic Signatures: Sharmin Guaman (BELLOWS CHARGER ASSEMBLER-LAST REMODELER REPAIRER) (Signed 02-Oct-2021 15:19) Authored: Clinical Event Note Last Updated: 02-Oct-2021 15:19 by Sharmin Guaman (BELLOWS CHARGER ASSEMBLER-LAST REMODELER REPAIRER) [facility] Clinical Event Note-Need for wheel Chairon [...] home, can self propel or has a special needs caregiver to provide assistance. Provider/Team Contact Info-Pager [phone] Electronic Signatures: Sharmin Guaman (BELLOWS CHARGER ASSEMBLER-LAST REMODELER REPAIRER) (Signed 02-Oct-2021 15:27) Authored: Clinical Event Note Last Updated: 02-Oct-2021 15:27 by Sharmin Guaman (BELLOWS CHARGER ASSEMBLER-LAST REMODELER REPAIRER) [facility] Daily Progress Note-Neurosur jinny 10-02-2021 Daily Progress Note-Neurosurgery Service: Neurosurgery Subjective Data: MORALES LEE is a 46 year old Female who is Hospital Day # 18 and POD #11 for posterior L4-L5 decompression;posterior L4-L5 arthrodesis. Objective Data: Objective Information: T PRBPSpO2 [id number]/8397% Date/Time1/28 1: 1: 1: 1: 1:28 Range(36.2C - [...] 2021 10:00 pm000 Oct 01, 2021 2:00 [id number] The Intake and Output Totals for the last 24 hours are: IntakeOutputNet [id number] Physical Exam by System: Neurological: A&Ox3 RUE D5, B5, T5, HG5, IO5 LUE D4+, B4+, T4+, HG4+, IO5 RLE HF 3, KE4-, PF1, DF0 LLE HF 4-, KE4-, PF2, DF1 incision c/d/i Recent Lab Results: Results: RFP: 09/27/2021 14:14 NA+ Cl- BUN / 137 98 6 / ------- Glucose -- 91 K+ HCO3- Creat \ 4.1 26 [...] the note. I personally evaluated the patient [id number] Electronic Signatures: Kenneth Philippe (Resident)) (Signed 02-Oct-2021 06:52) Authored: Service, Subjective Data, Objective Data, Assessment and Plan, Note Completion Lex Frederick) (Signed 02-Oct-2021 15:16) Authored: Note Completion Co-Signer: Service, Subjective Data, Objective Data, Assessment and Plan, Note Completion Last Updated: 02-Oct-2021 15:16 by Lex Frederick) [facility] Clinical Event Note-Discharg e discussionon 10-01-2021 Clinical [...] duration of trip. Electronic Signatures: Ambrocio Izaguirre (BELLOWS CHARGER ASSEMBLER-LAST REMODELER REPAIRER) (Signed 01-Oct-2021 17:11) Authored: Clinical Event Note Last Updated: 01-Oct-2021 17:11 by Ambrocio Izaguirre (BELLOWS CHARGER ASSEMBLER-LAST REMODELER REPAIRER) [facility] Clinical Event Note-Need for hospital bedon [...] when lying flat. Electronic Signatures: Ambrocio Izaguirre (BELLOWS CHARGER ASSEMBLER-LAST REMODELER REPAIRER) (Signed 01-Oct-2021 14:48) Authored: Clinical Event Note Last Updated: 01-Oct-2021 14:48 by Ambrocio Izaguirre (BELLOWS CHARGER ASSEMBLER-LAST REMODELER REPAIRER) [facility] Daily Progress Note-Nuha leonidasgaurang 10-01-2021 Daily Progress Note-Neurosurgery Service: Neurosurgery Subjective Data: MORALES LEE is a 46 year old Female who is Hospital Day # 17 and POD #10 for posterior L4-L5 decompression;posterior L4-L5 arthrodesis. Objective Data: Objective Information: T PRBPSpO2 [id number]/7194% Date/Time10/01 0: 0: 0:381 0:381 0:38 Range(35.6C - 36.8C ) (64 - 96 ) (16 - 19 ) (94 - 138 )/ (59 - 83 ) (92% - 94% ) Pain reported at 09/30 9:00: 2 = Mild ---- Intake and Output ----- Mn/Dy/Year TimeIntakeOutputNet Sep 29, 2021 10:00 [id number] Sep 29, 2021 2:00 [id number] Sep 29, 2021 6:00 am000 The Intake [...] Cl- BUN / 137 98 6 / ------- Glucose -- 91 K+ HCO3- Creat \ 4.1 26 [...] Updated: 01-Oct-2021 10:29 by Lex Frederick) [facility] Daily Progress Note-Neurosurgery This report has been cancelled. [facility] Daily Progress Note-Nuha stearns 09-30-2021 Daily Progress Note-Neurosurgery Service: Neurosurgery Subjective Data: MORALES LEE is a 46 year old Female who is Hospital Day # 15 and POD #8 for posterior L4-L5 decompression;posterior L4-L5 arthrodesis. Objective Data: Objective Information: T PRBPSpO2 [id number]/7393% Date/Time09/29 16: 16: 16: 16: 16:00 Range(36C - 36.7C ) (67 - 86 ) (17 - 20 ) (94 - 153 )/ (15 - 113 ) (93% - 98% ) Pain reported at 09/29 9:56: 5 = Moderate ---- Intake and Output ----- Mn/Dy/Year TimeIntakeOutputNet Sep 29, 2021 2:00 [id number] Sep 29, 2021 6:00 am000 Sep 28, 2021 10:00 [id number] The Intake and Output Totals for the last 24 hours are: IntakeOutputNet [id number] Physical Exam by System: Neurological: A&Ox3 RUE D5, B5, T5, HG5, IO5 LUE D4+, B4+, T4+, HG4+, IO5 RLE HF 3, KE4-, PF1, DF0 LLE HF 4-, KE4-, PF2, DF1 increased sensation soles of feet Recent Lab Results: Results: RFP: 09/27/2021 14:14 NA+ Cl- BUN / 137 98 6 / ------- Glucose -- 91 K+ HCO3- Creat \ 4.1 26 [...] the note. I personally evaluated the patient [id number] Electronic Signatures: Lex Frederick) (Signed 30-Sep-2021 11:18) Authored: Note Completion Co-Signer: Service, Subjective Data, Objective Data, Assessment and Plan, Note Completion Jaya Mosquera (Resident)) (Signed 30-Sep-2021 03:18) Authored: Service, Subjective Data, Objective Data, Assessment and Plan, Note Completion Last Updated: 30-Sep-2021 11:18 by Lex Frederick) [facility] Hhne-qa-tqdotosjr - co -tx /c OT to address multidiscipon 09-30-2021 Rehab Ohup-vm-zuykmaads - co-tx /c OT to address multidiscip Rehab: Info: Disciplinephysical enterostomal therapy nurse Mode of Treatmentphysical therapy; co-treatment; co-tx /c OT to address multidisciplinary functional needs and maximize pt's safety. Time IN12:15 Time OUT12:55 Total Treatment [id number] Patient in ... at end of sessionbed, 3 railings up; alarm off; not on at start of visit Communicated with ... at end of sessionbedside nurse Patient Effortgood Symptoms Noted During/After Treatmentfatigue Treatment Considerations/CommentsEx tensive discussion /c amongst SPOT WELDER LINE, OT, and pt regarding her current physical [...] performing ADLs and transfers. Mobility/Tone: Bed Mobility Assessment/Interventionss upine to sit; sit to supine; rolling right; rolling left; scooting/bridging Roll Left Hern[place] (Bed Mobility)moderate assist (50% patient effort); 1 person assist; nonverbal cues (demo/gesture); verbal cues Roll Right [place] (Bed Mobility)moderate assist (50% patient effort); 1 person assist; nonverbal cues (demo/gesture); verbal cues Scoot/Bridge Hern[place] (Bed Mobility)maximum assist (25% patient effort); 2 person assist; nonverbal cues (demo/gesture); verbal cues Uswxgw-ev-Hpw Hernando (Bed Mobility)maximum assist (25% patient effort); 2 person assist; nonverbal cues (demo/gesture); verbal cues Huq-vv-Ombbzu Hernando (Bed Mobility)maximum assist (25% patient effort); 2 person assist; nonverbal cues (demo/gesture); verbal cues Assistive Device (Bed Mobility)bed rails; draw sheet Comment, Bed MobilityPt showing improvement in her ability to roll, performing 50% of AROM to achieve full rolling position. Transfer Assessment/Interventionss it to stand transfer; stand to sit transfer Comment, TransfersToday's session, OT and I utilized [employer] Stand device to assist pt into full [...] Pt repositioned back to sitting EOB. Sit-Stand Hernando (Transfers)dependent (less than 25% patient effort) Sit-Stand Assistive Device (Transfers)mechanical lift/aid Stand-Sit Hernando (Transfers)dependent (less than 25% patient effort) Stand-Sit Assistive Device (Transfers)mechanical lift/aid Impairments Impacting Function (Mobility)endurance/activ ity tolerance; strength; balance; coordination; postural/trunk control Outcomes [...] Score8 Short Term Goals: Bed Mobility: Date [id number] Bed Mobility: Hernando Level Goalminimum assist (75% patients effort) Bed Mobility: Physical Assist Level Goal1-person assist, verbal cues Bed Mobility: Time Frame for Goal2 wks Transfer: Established [id number] Transfer: Transfer Type Eefpdie-af-nvcup/chair-to -bed; hnt-bx-swdlw/xzckj-qw-zre Transfer: Hernando Level Goalmoderate assist (50% patients effort) Transfer: Physical Assist Level Goal1-person assist; verbal cues Transfer: Assistive Device Goalrolling walker Transfer: Time Frame for Goal2 wks Gait: Established [id number] Gait: Hernando Level Goalmoderate assist (50% patients (more content not included)... [facility] Rehab Note-speech language therapist apy - co-tx with PT to maximizeon 09-30-2021 Rehab Note-occupational therapy - co-tx with PT to maximize Rehab: Info: Disciplineoccupational therapist Mode of Treatmentoccupational therapy; co-tx with PT to maximize pt's mobility and safety. Time IN12:15 Time OUT12:55 Total Treatment [id number] Patient in ... at end of sessionbed, [...] Line and TubesIV; purewick Mobility/Tone: Bed Mobility Assessment/Interventionsr olling right; rolling left; scooting/bridging Roll Left Hernando (Bed Mobility)moderate assist (50% patient effort); 1 person assist; nonverbal cues (demo/gesture); verbal cues Roll Right Hern[place] (Bed Mobility)moderate assist (50% patient effort); 1 person assist; nonverbal cues (demo/gesture); verbal cues Scoot/Bridge Hern[place] (Bed Mobility)maximum assist (25% patient effort); 2 [...] solving; safety precaution awareness Impairments Impacting Function (Mobility)endurance/activ ity tolerance; strength; balance; coordination; postural/trunk control; pain ADL: BADL Assessment/Interventionto ileting; feeding; grooming; lower body dressing; upper body dressing; bathing Hernando Level (Bathing)set up; verbal cues; moderate assist (50% patient effort); 1 person assist Comment (Bathing)anticipated due to impaired balance, strength, and pain. Hernando Level (Upper Body Dressing)set up; verbal cues; moderate assist (50% patient effort) Comment (Upper Body Dressing)anticipated due to impaired balance, strength, and pain. Hernando Level (Lower Body Dressing)don; socks; dependent (less than 25% patient effort) Position (Lower Body Dressing)supine Hernando Level (Grooming)modified independence Comment (Grooming)Pt observed applying Orajel to gums, able to manage packaging, cap un/screwing, and application. Hernando Level (Feeding)modified independence Comment (Feeding)Pt able to retrieve OJ cup from tray table at R side, bring to mouth, and drink appropriately. Hernando Level (Toileting)dependent (less than 25% patient effort); purewick Comment (Toileting)Pt required Total A for toilet hygiene following urinary incontinence with rolling R/L in bed. Impairments, BADL Safety/Performancebalance ; cognition; endurance/activity tolerance; strength; trunk/postural control Cognitive Impairments, BADL Safety/Performanceawarene ss, need for assistance; insight into deficits/self awareness; [...] Score15 Short Term Goals: Bed Mobility: Date [id number] Bed Mobility: Hern[place] Level Goalcontact guard Bed Mobility: Physical Assist Level Goalset-up, verbal cues Bed Mobility: Time Frame for Goal2 wks Transfer: Established [id number] Transfer: Transfer Type Rlsrcwh-kp-xgadx/chair-to -bed; dqs-bg-cqlyr/orznk-xc-gfn ; toilet Transfer: Hernando Level Goalminimum assist (75% patients effort) Transfer: Physical Assist Level Goalset-up; verbal cues; 1-person assist Transfer: Assistive Device GoalLRD Transfer: Time Frame for Goal2 wks Balance: Established [id number] Balance: Goal DetailsPt will perform ADL while reaching outside MADDIE and returning self to midline >8 minutes with set-up assist, SBA, and minimal verbal cues for safety. Enrique (more content not included)... [facility] Daily Progress Note-Neurosjudy stearns 09-29-2021 Daily Progress Note-Neurosurgery Service: Neurosurgery Subjective Data: MORALES LEE is a 46 year old Female who is Hospital Day # 14 and POD #7 for posterior L4-L5 decompression;posterior L4-L5 arthrodesis. Objective Data: Objective Information: T PRBPSpO2 [id number]/6993% Date/Time09/28 4: 8: 8: 8: 8:00 Range(36C [...] 2021 6:00 am000 Sep 27, 2021 10:00 [id number] Sep 27, 2021 2:00 [id number] The Intake and Output Totals for the last 24 hours are: IntakeOutputNet [id number] Physical Exam by System: Neurological: A&Ox3 RUE D5, B5, T5, HG5, IO5 LUE D4+, B4+, T4+, HG4+, IO5 RLE HF 3, KE4-, PF1, DF0 LLE HF 4-, KE4-, PF2, DF1 Recent Lab Results: Results: RFP: 09/27/2021 14:14 NA+ Cl- BUN / 137 98 6 / ------- Glucose -- 91 K+ HCO3- Creat \ 4.1 26 [...] the note. I personally evaluated the patient [id number] Electronic Signatures: Lex Frederick) (Signed 29-Sep-2021 09:23) Authored: Note Completion Co-Signer: Service, Subjective Data, Objective Data, Assessment and Plan, Note Completion Jaya Mosquera (Resident)) (Signed 29-Sep-2021 03:01) Authored: Service, Subjective Data, Objective Data, Assessment and Plan, Note Completion Last Updated: 29-Sep-2021 09:23 by Lex Frederick) [facility] Klar-mx-krckzjfip - co -tx /c OT to address multidiscipon 09-29-2021 Rehab Ajxx-rj-jiyocqxyi - co-tx /c OT to address multidiscip Rehab: Info: Disciplinephysical enterostomal therapy nurse Mode of Treatmentphysical therapy; co-treatment; co-tx /c OT to address multidisciplinary functional needs and maximize pt's safety. Time IN14:30 Time OUT15:40 Total Treatment [id number] Patient in ... at end of sessionbed, [...] progress we made today. Mobility/Tone: Bed Mobility Assessment/Interventionsr olling right; rolling left; scooting/bridging; supine to sit; sit to supine Roll Left Hernando (Bed Mobility)maximum assist (25% patient effort); 2 person assist; verbal cues; nonverbal cues (demo/gesture) Roll Right [place] (Bed Mobility)maximum assist (25% patient effort); 2 person assist; verbal cues; nonverbal cues (demo/gesture) Scoot/Bridge Hern[place] (Bed Mobility)maximum assist (25% patient effort); 2 person assist; nonverbal cues (demo/gesture); verbal cues Cpnxsc-fn-Ory Hern[place] (Bed Mobility)maximum assist (25% patient effort); 2 person assist; nonverbal cues (demo/gesture); verbal cues Gty-rb-Xybrqm Hern[place] (Bed Mobility)verbal cues; nonverbal cues (demo/gesture); maximum assist (25% patient effort); 2 person assist Assistive Device (Bed Mobility)draw sheet; bed rails Comment, Bed MobilityOT and PT utilized series of rolling to don harness for Dinora Stand device. Transfer Assessment/Interventionss it to stand transfer; stand to sit transfer [...] Pt repositioned back to sitting EOB. Sit-Stand [place] (Transfers)dependent (less than 25% patient effort) Sit-Stand Assistive Device (Transfers)mechanical lift/aid Stand-Sit [place] (Transfers)dependent (less than 25% patient effort) Stand-Sit Assistive Device (Transfers)mechanical lift/aid Impairments Impacting Function (Mobility)endurance/activ ity tolerance; strength; balance; coordination; postural/trunk control Outcomes [...] Score8 Short Term Goals: Bed Mobility: Date [id number] Bed Mobility: Hern[place] Level Goalminimum assist (75% patients effort) Bed Mobility: Physical Assist Level Goal1-person assist, verbal cues Bed Mobility: Time Frame for Goal2 wks Transfer: Established [id number] Transfer: Transfer Type Xvspayj-ch-avxua/chair-to -bed; zrl-cj-unxeq/xcfiq-gw-qzf Transfer: Hern[place] Level Goalmoderate assist (50% patients effort) Transfer: Physical Assist Level Goal1-person assist; verbal cues Transfer: Assistive Device Goalrolling walker Transfer: Time Frame for Goal2 wks Gait: Established [id number] Gait: Hern[place] Level Goalmoderate assist (50% patients effort) Gait: Physical Assist Level1-person assist; verbal cues Gait: Assistive Device Goalrolling walker Gait: Distance Goal15 feet Gait: Time Frame for Goal2 wks Balance: Established [id number] Balance: Goal DetailsSitting EOB 20 minutes with 0-1 UE support, SBA for static sitting, CGA for dynamic. Standing 1 minute with FWW and CGA Education: Learnerpatient Topicrehab plan of care; discharge recommendations including destination and/or equipment Outcome Summary: Progress: Physical Therapyprogress towards functional goals is fair Outcome (more content not included)... [facility] Rehab Note-speech language therapist apy - co-tx with PT to maximizeon 09-29-2021 Rehab Note-occupational therapy - co-tx with PT to maximize Rehab: Info: Disciplineoccupational therapist Mode of Treatmentoccupational therapy; co-tx with PT to maximize pt's mobility and safety. Time IN14:30 Time OUT15:40 Total Treatment [id number] Patient in ... at end of sessionbed, [...] Function Deficit (Cognition)moderate deficit; insight/awareness of deficits; self-monitoring/self-siobhan ection; problem solving/reasoning Safety Deficit (Cognitive)moderate deficit; decreased awareness; impaired insight into deficits; self-awareness impairment; need for assistance Cognitive Interventions (Cognitive)external compensatory strategy training; internal compensatory strategy training; environmental modifications; occupation/activity based interventions; process/task specific training; process modification; reasoning/problem solving interventions; sensory stimulation Able to Follow Commands (Receptive)follows multi-step commands; over 90% accuracy; repetition of directions required; verbal cues/prompting required Mobility/Tone: Bed Mobility Assessment/Interventionsr olling right; rolling left; scooting/bridging; supine to sit; sit to supine Roll Left [place] (Bed Mobility)maximum assist (25% patient effort); 2 person assist; verbal cues; nonverbal cues (demo/gesture); multiple rolls to adjust harness Roll Right [place] (Bed Mobility)maximum assist (25% patient effort); 2 person assist; verbal cues; nonverbal cues (demo/gesture); multiple rolls to adjust harness Scoot/Bridge [place] (Bed Mobility)maximum assist (25% patient effort); 2 person assist; nonverbal cues (demo/gesture); verbal cues; boost HOB Rqeexb-ff-Hqr Hernando (Bed Mobility)maximum assist (25% patient effort); 2 person assist; nonverbal cues (demo/gesture); verbal cues Ddn-th-Groefu Hernando (Bed Mobility)verbal cues; nonverbal cues (demo/gesture); maximum assist (25% patient effort); 2 person assist Assistive Device (Bed Mobility)draw sheet; bed rails Transfer Assessment/Interventionss it to stand transfer; stand to sit transfer Sit-Stand [place] (Transfers)dependent (less than 25% patient effort) Sit-Stand Assistive Device (Transfers)mechanical lift/aid; Faye Plus Stand-Sit [place] (Transfers)dependent (less than 25% patient effort) Stand-Sit Assistive Device (Transfers)mechanical lift/aid; Faye Plus Safety Issues Impacting Function (Mobility)awareness of need for assistance; insight into deficits/self awareness Impairments Impacting Function (Mobility)endurance/activ ity tolerance; strength; balance; coordination; postural/trunk control ADL: BADL Assessment/Interventionto ileting; feeding; grooming; lower body dressing; upper body dressing; bathing [place] Level (Bathing)set up; verbal cues; moderate assist (50% patient effort); 1 person assist Comment (Bathing)anticipated due to impaired balance, strength, and pain. [place] Level (Upper Body Dressing)set up; verbal cues; moderate assist (50% patient effort) Comment (Upper Body Dressing)anticipated due to impaired balance, strength, and pain. [place] Level (Lower Body Dressing)don; socks; dependent (less than 25% patient effort) Position (Lower Body Dressing)supine Hern[place] Level (Grooming)set up; contact guard Comment (Grooming)anticipated due to impaired balance, strength, and pain. [place] Level (Feeding)set up; modified independence Comment (Feeding)anticipated [place]ando Level (Toileting)dependent (less than 25% patient effort); purewick Impairments, BADL Safety/Performancebalance ; cognition; endurance/activity tolerance; strength; trunk/postural control Cognitive Impairments, BADL Safety/Performanceawarene ss, need for assistance; insight into deficits/self awareness; judgment; problem solving/reasoning Motor: Sitting, Static (Balance)good balance SBA Sitting, Dynamic (Balance)fair balance CGA Sbe-mj-Ifnvh (Balance)poor balance Total A via Faye Plus lift Standing, Static (Balance)poor balance Max A x1 - via Faye Plus Standing, Dynamic (Balance)unable to balance Balance ActivitiesPt sat EOB ~20 minutes throughout session primarily with SB (more content not included)... [facility] Clinical Event Note-Medical Assessmenton 09-28-2021 Clinical [...] oil enema alternating with tap water enema [id number] - Bisacodyl suppository QHS Daily - Monitor [...] for wound check 10/07/21 at 10:15 am, [facility] 5th floor - F/U with Dr. [...] note 45 minutes; Electronic Signatures: Concetta Shi (BELLOWS CHARGER ASSEMBLER-LAST REMODELER REPAIRER) (Signed 28-Sep-2021 14:31) Authored: Clinical Event Note Last Updated: 28-Sep-2021 14:31 by Concetta Shi (BELLOWS CHARGER ASSEMBLER-LAST REMODELER REPAIRER) [facility] Daily Progress Note-Gastroen terologyon 09-28-2021 Daily Progress Note-Gastroenterology Service: Gastroenterology Subjective Data: MORALES LEE is a 46 year old Female who is Hospital Day # 14 and POD #7 for posterior L4-L5 decompression;posterior L4-L5 arthrodesis. No events overnight. Had one bowel movement this am. Otherwise no complaints. Objective Data: Objective Information: T PRBPSpO2 [id number]/6993% Date/Time09/28 4: 8: 8: 8: 8:00 Range(36C [...] 2021 6:00 am000 Sep 27, 2021 10:00 [id number] Sep 27, 2021 2:00 [id number] The Intake and Output Totals for the last 24 hours are: IntakeOutputNet [id number] Physical Exam by System: Constitutional: Constitutional: A&Ox3, no acute distress Eyes: PERRL, EOMI, clear sclera Respiratory/Thorax: decreased BS bilat Cardiovascular: RRR Gastrointestinal: abd mildly distended, soft, non tender Psychological: Appropriate mood and behavior Skin: Warm and dry, no lesions, no rashes Medication: Medications: Continuous Medications ------- 1. Sodium Chloride 0.9% Infusion: 1000 mL IntraVenous Scheduled Medications ------- 1. Acetaminophen: 650 mg Oral Every 6 [...] 10 mg Oral At Bedtime PRN Medications ------- 1. Bisacodyl Rectal: 10 mg Rectal Daily [...] a Day After Meals Currently Suspended Medications ------- 1. Lisinopril: 20 mg Oral Daily Recent Lab Results: Results: RFP: 09/27/2021 14:14 NA+ Cl- BUN / 137 98 6 / ------- Glucose -- 91 K+ HCO3- Creat \ 4.1 26 [...] needed (consider scheduling anti-emetics if needed) -avoid opioids/anti-cholinergics /CCB's -monitor electrolytes (especially K and Mg) and replete as needed -encourage ambulation as tolerated (if non-ambulatory, please turn in bed Q2-3 hours for mobilization) -if no BM's with above regimen, can consider Relistor injection given chronic opioid history, however recommend tr (more content not included)... [facility] Daily Progress Note-Nuha jinny 09-28-2021 Daily Progress Note-Neurosurgery Service: Neurosurgery Subjective Data: MORALES LEE is a 46 year old Female who is Hospital Day # 14 and POD #7 for posterior L4-L5 decompression;posterior L4-L5 arthrodesis. Objective Data: Objective Information: T PRBPSpO2 [id number]/4893% Date/Time09/28 4: 4: 4: 4: 4:00 Range(36C - 36.6C ) (72 - 87 ) (15 - 22 ) (92 - 153 )/ (48 - 113 ) (92% - 99% ) As of 27-Sep-2021 22:00:00, patient is on 2 L/min of oxygen via nasal cannula. Pain reported at 09/27 22:00: 0 = None ---- Intake and Output ----- Mn/Dy/Year TimeIntakeOutputNet Sep 26, 2021 10:00 [id number] Sep 26, 2021 2:00 [id number] The Intake and Output Totals for the last 24 hours are: IntakeOutputNet [id number] Physical Exam by System: Neurological: A&Ox3 RUE D5, B5, T5, HG5, IO5 LUE D4+, B4+, T4+, HG4+, IO5 RLE HF 3, KE4-, PF1, DF0 LLE HF 4-, KE4-, PF2, DF1 Recent Lab Results: Results: RFP: 09/27/2021 14:14 NA+ Cl- BUN / 137 98 6 / ------- Glucose -- 91 K+ HCO3- Creat \ 4.1 26 [...] the note. I personally evaluated the patient [id number] Electronic Signatures: Fidel Maciel (Resident)) (Signed 28-Sep-2021 05:47) Authored: Service, Subjective Data, Objective Data, Assessment and Plan, Note Completion Lex Frederick) (Signed 28-Sep-2021 07:32) Authored: Note Completion Co-Signer: Service, Subjective Data, Objective Data, Assessment and Plan, Note Completion Last Updated: 28-Sep-2021 07:32 by Lex Frederick) [facility] RENAL FUNCTION PANELon 09-28 Albumin [Mass/Vol] 3.1 g/dL Low 3.4 - 5.0 [facility] Comment on above: Performed By: #### R ENAL ####[id number] [place] [address] Anion gap [Moles/Vol] 17 mmol/L Normal 10 - 20 [facility] Comment on above: Performed By: #### R ENAL ####[id number] [place] [address] Calcium [Mass/Vol] 8.4 mg/dL Low 8.6 - 10.6 [facility] Comment on above: Performed By: #### R ENAL ####[id number] [place] [address] Chloride [Moles/Vol] 102 mmol/L Normal 98 - 107 [facility] Comment on above: Performed By: #### R ENAL ####[id number] [place] [address] Creatinine [Mass/Vol] 0.47 mg/dL Low 0.50 - 1.05 [facility] Comment on above: Performed By: #### R ENAL ####[id number] [place] [address] eGFR FEMALE >90 Normal >90 [facility] Comment on above: Result Comment: CALC ULATIONS OF ESTIMATED GFR ARE PERFORMED USING THE 2020 CKD-EPI STUDY REFIT EQUATION WITHOUT THE RACE VARIABLE FOR THE IDMS-TRACEABLE CREATININE METHODS. https://jasn.asnjournals.org/content//ASN.872 8287199 Performed By: #### R ENAL ####[id number] [place] [address] Glucose [Mass/Vol] 74 mg/dL Normal 74 - 99 [facility] Comment on above: Performed By: #### R ENAL ####[id number] [place] [address] HCO3 (Bld) [Moles/Vol] 27 mmol/L Normal 21 - 32 [facility] Comment on above: Performed By: #### R ENAL ####[id number] [place] [address] Phosphate [Mass/Vol] 3.4 mg/dL Normal 2.5 - 4.9 [facility] Comment on above: Result Comment: The performance characteristics of phosphorus testing in heparinized plasma have been validated by the individual laboratory site where testing is performed. Testing on heparinized plasma is not approved by the FDA; however, such approval is not necessary. Performed By: #### R ENAL ####[id number] [place] [address] Potassium [Moles/Vol] 3.7 mmol/L Normal 3.5 - 5.3 [facility] Comment on above: Performed By: #### R ENAL ####[id number] [place] [address] Sodium [Moles/Vol] 142 mmol/L Normal 136 - 145 [facility] Comment on above: Performed By: #### R ENAL ####[id number] [place] [address] Urea nitrogen [Mass/Vol] 6 mg/dL Normal 6 - 23 [facility] Comment on above: Performed By: #### R ENAL ####[id number] [place] [address] Radiologyon 09-28-2021 XR Abdomen AP Normal [facility]-Gastroen terology-Rosendo hernandesell 6 I Work Phone: Rehab Note-attemptedon 09-28 Rehab Note-attempted Rehab: Info: Disciplinephysical enterostomal therapy nurse Mode of Treatmentattempted Time IN15:30 Reason Treatment Not Performedpatient/family declined treatment, not feeling well Treatment Considerations/CommentsPt declined therapy at this time 2* increased fatigue, nausea. Pt stated NO! NO! NO! upon therapists arrival, even /c increased encouragement. Will reattempt as schedule allows. Short Term Goals: Bed Mobility: Date [id number] Bed Mobility: Hernando Level Goalminimum assist (75% patients effort) Bed Mobility: Physical Assist Level Goal1-person assist, verbal cues Bed Mobility: Time Frame for Goal2 wks Transfer: Established [id number] Transfer: Transfer Type Hfulzrh-cw-xusff/chair-to -bed; bwo-my-mtrlo/mlpji-st-dac Transfer: Hernando Level Goalmoderate assist (50% patients effort) Transfer: Physical Assist Level Goal1-person assist; verbal cues Transfer: Assistive Device Goalrolling walker Transfer: Time Frame for Goal2 wks Gait: Established [id number] Gait: Hernando Level Goalmoderate assist (50% patients effort) Gait: Physical Assist Level1-person assist; verbal cues Gait: Assistive Device Goalrolling walker Gait: Distance Goal15 feet Gait: Time Frame for Goal2 wks Balance: Established [id number] Balance: Goal DetailsSitting EOB 20 minutes with 0-1 UE support, SBA for static sitting, CGA for dynamic. Standing 1 minute with FWW and CGA Electronic Signatures: Yosi Campbell (SPOT WELDER LINE) (Signed 28-Sep-2021 15:32) Entered: Short Term Goals, Info Authored: Deon, Short Term Goals Boone Broussard (PT) (Signed 01-Oct-2021 09:01) Co-Signer: Short Term Goals, Info Last Updated: 01-Oct-2021 09:01 by Boone Broussard (PT) Normal [facility] Rehab Note-attempted Rehab: Info: Mode of [...] 28-Sep-2021 15:28 by Silvana Marshall (OT) Normal [facility] Renal Function Panelon 09-28 Albumin BCP dye [Mass/Vol] 3.1 g/dL below low threshold 3.4 - 5.0 [facility]-Gastroen terology-Rosendo lwell 6 I Work Phone: Anion gap [Moles/Vol] 17 mmol/L 10 - 20 [facility]- Gastroen terology-Rosendo lwell 6 [facility] Work Phone: Calcium [...] Potassium [Moles/Vol] 3.7 mmol/L 3.5 - 5.3 MG- Gastroen terology-Rosendo lwell 6 I Work Phone: Sodium [...] THE RACE VARIABLE FOR THE IDMS-TRACEABLE CREATININE METHODS.https://jasn.asnjournals.org/content/early /ASN.0162773933 TH ABDOMEN AP VIEWon 022 ABDOMEN AP VIEW Patient Name: MORALES LEE STUDY: ABDOMEN AP VIEW; 09/28/2021 1:22 pm INDICATION: Abd. dist. . COMPARISON: 09/27/2021 abdominal radiograph. ACCESSION NUMBER(S): [id number] ORDERING CLINICIAN: CONCETTA SHI FINDINGS: Two AP [...] as stated. This study was interpreted at [facility], [place], [place]. Electronically signed by: TANIKA SUTTON MD [facility] Consult-Gastroenterologyon 0 09-27-2021 Consult-Gastroenterology Service: Service: Gastroenterology Consult: Consult requested by [...] admission for post-op pain including a dilaudid ACCESS CONTROL OFFICER. Has been on scheduled bowel regimen with [...] penicillin: Unknown Objective: Objective Information: T PRBPSpO2 [id number]/94988% Date/Time09/27 4: 4: 4:001 4:00 Range (76 [...] lesions, no rashes Medications: Medications: Continuous Medications ------- 1. Sodium Chloride 0.9% Infusion: 1000 mL IntraVenous Scheduled Medications ------- 1. Acetaminophen: 650 mg Oral Every 6 [...] 10 mg Oral At Bedtime PRN Medications ------- 1. Bisacodyl Rectal: 10 mg Rectal Daily [...] a Day After Meals Currently Suspended Medications ------- 1. Lisinopril: 20 mg Oral Daily Recent [...] C6-7 ACDFF, (more content not included)... Normal [facility] Daily Progress Note-Neurosur jinny 09-27-2021 Daily Progress Note-Neurosurgery Service: Neurosurgery Subjective Data: MORALES LEE is a 46 year old Female who is Hospital Day # 13 and POD #6 for posterior L4-L5 decompression;posterior L4-L5 arthrodesis. Objective Data: Objective Information: T PRBPSpO2 [id number]/16092% Date/Time09/26 11:0809/27 4: 4: 4: 4:00 Range(37C [...] 2021 6:00 am000 Sep 26, 2021 10:00 [id number] Sep 26, 2021 2:00 [id number] The Intake and Output Totals for the last 24 hours are: IntakeOutputNet [id number] Physical Exam by System: Neurological: A&Ox3 RUE D5, B5, T5, HG5, IO5 LUE D4+, B4+, T4+, HG4+, IO5 RLE HF 3, KE4-, PF1, DF1 LLE HF 4-, KE4-, PF1, DF0 Recent Lab Results: Results: RFP: 09/24/2021 06:20 NA+ Cl- BUN / 143 108 H 5 L / ------- Glucose -- 92 K+ HCO3- Creat \ 3.9 29 [...] the note. I personally evaluated the patient [id number] Electronic Signatures: Chaparro Umana (Resident)) (Signed 27-Sep-2021 06:11) Authored: Service, Subjective Data, Objective Data, Assessment and Plan, Note Completion Natalia Palacios) (Signed 08-Oct-2021 14:31) Authored: Note Completion Co-Signer: Service, Subjective Data, Objective Data, Assessment and Plan, Note Completion Last Updated: 08-Oct-2021 14:31 by Natalia Palacios) Normal [facility] MAGNESIUMon 09-27-2021 Magnesium [Mass/Vol] 1.80 mg/dL Normal 1.60 - 2.40 [facility] Comment on above: Performed By: #### C BC #### [facility] [address] [place] [address] Magnesium, Serumon Magnesium [Mass/Vol] 1.80 mg/dL See Below MG-G astroen terraiaz-Rosendo moura 6 [facility] Work Phone: Comment on above: Reference Range: 1.6 0 - 2.40 RENAL FUNCTION PANELon 09-27 Albumin [Mass/Vol] 3.3 g/dL Low 3.4 - 5.0 [facility] Comment on above: Performed By: #### R ENAL #### [facility] [address] [place] [address] Anion gap [Moles/Vol] 17 mmol/L Normal 10 - 20 [facility] Comment on above: Performed By: #### R ENAL #### [facility] [address] [place] [address] Calcium [Mass/Vol] 8.5 mg/dL Low 8.6 - 10.6 [facility] Comment on above: Performed By: #### R ENAL #### [facility] [address] [place] [address] Chloride [Moles/Vol] 98 mmol/L Normal 98 - 107 [facility] Comment on above: Performed By: #### R ENAL #### [facility] [address] [place] [address] Creatinine [Mass/Vol] 0.44 mg/dL Low 0.50 - 1.05 [facility] Comment on above: Performed By: #### R ENAL #### [facility] [address] [place] [address] eGFR FEMALE >90 Normal >90 [facility] Comment on above: Result Comment: CALC ULATIONS OF ESTIMATED GFR ARE PERFORMED USING THE 2020 CKD-EPI STUDY REFIT EQUATION WITHOUT THE RACE VARIABLE FOR THE IDMS-TRACEABLE CREATININE METHODS. https://jasn.asnjournals.org/content//ASN.418 1415229 Performed By: #### R ENAL #### [facility] [address] [place] [address] Glucose [Mass/Vol] 91 mg/dL Normal 74 - 99 [facility] Comment on above: Performed By: #### R ENAL #### [facility] [address] [place] [address] HCO3 (Bld) [Moles/Vol] 26 mmol/L Normal 21 - 32 [facility] Comment on above: Performed By: #### R ENAL #### [facility] [address] [place] [address] Phosphate [Mass/Vol] 4.0 mg/dL Normal 2.5 - 4.9 [facility] Comment on above: Result Comment: The performance characteristics of phosphorus testing in heparinized plasma have been validated by the individual laboratory site where testing is performed. Testing on heparinized plasma is not approved by the FDA; however, such approval is not necessary. Performed By: #### R ENAL #### [facility] [address] [place] [address] Potassium [Moles/Vol] 4.1 mmol/L Normal 3.5 - 5.3 [facility] Comment on above: Performed By: #### R ENAL #### [facility] [address] [place] [address] Sodium [Moles/Vol] 137 mmol/L Normal 136 - 145 [facility] Comment on above: Performed By: #### R ENAL #### [facility] [address] [place] [address] Urea nitrogen [Mass/Vol] 6 mg/dL Normal 6 - 23 [facility] Comment on above: Performed By: #### R ENAL #### [facility] [address] [place] [address] Radiologyon 09-27-2021 XR Abdomen AP Normal [facility]-Gastroen terology-[facility]endo lwell 6 I Work Phone: Renal Function Panelon 09-27 Albumin BCP dye [Mass/Vol] 3.3 g/dL below low threshold 3.4 - 5.0 [facility]-Gastroen terology-Rosendo lwell 6 I Work Phone: Anion gap [Moles/Vol] 17 mmol/L 10 - 20 [facility]- Gastroen terology-Rosendo lwell 6 [facility] Work Phone: Calcium [...] Potassium [Moles/Vol] 4.1 mmol/L 3.5 - 5.3 MG- Gastroen terology-Rosendo lwell 6 [facility] Work Phone: Sodium [...] THE RACE VARIABLE FOR THE IDMS-TRACEABLE CREATININE METHODS.https://jasn.asnjournals.org/content/early/ /ASN.4006744160 ABDOMEN AP VIEWon 022 ABDOMEN AP VIEW Patient Name: JESUS MORALES STUDY: ABDOMEN AP VIEW; 09/27/2021 2:33 am INDICATION: vomiting, constipation . COMPARISON: None. ACCESSION NUMBER(S): [id number] ORDERING CLINICIAN: FIDEL MACIEL FINDINGS: 2 AP [...] as stated. This study was interpreted at [place], [place]. Electronically signed by: DWIGHT MOY MD [facility] Daily Progress Note-Neurosjudy stearns 09-26-2021 Daily Progress Note-Neurosurgery Service: Neurosurgery Subjective Data: MORALES LEE is a 46 year old Female who is Hospital Day # 12 and POD #5 for posterior L4-L5 decompression;posterior L4-L5 arthrodesis. Objective Data: Objective Information: T PRBPSpO2 Wuldk3002401/8299% Date/Time09/25 17: 12:001 17: 17:08 Range (68 - 98 ) (21 - 23 ) (118 - 136 )/ (69 - 82 ) (92% - 99% ) Pain reported at 09/26 3:00: sleeping ---- Intake and Output ----- Mn/Dy/Year TimeIntakeOutputNet Sep 24, 2021 10:00 [id number] Sep 24, 2021 2:00 [id number] Sep 24, 2021 6:00 [id number] The Intake and Output Totals for the last 24 hours are: IntakeOutputNet [id number] Physical Exam by System: Neurological: A&Ox3 RUE D5, B5, T5, HG5, IO5 LUE D4+, B4+, T4+, HG4+, IO5 RLE HF 3, KE4-, PF1, DF1 LLE HF 4-, KE4-, PF1, DF0 Recent Lab Results: Results: RFP: 09/24/2021 06:20 NA+ Cl- BUN / 143 108 H 5 L / ------- Glucose -- 92 K+ HCO3- Creat \ 3.9 29 [...] the note. I personally evaluated the patient [id number] Electronic Signatures: Jaya Mosquera ( (Resident)) (Signed 26-Sep-2021 07:08) Authored: Service, Subjective Data, Objective Data, Assessment and Plan, Note Completion Natalia Palacios) (Signed 08-Oct-2021 14:10) Authored: Note Completion Co-Signer: Service, Subjective Data, Objective Data, Assessment and Plan, Note Completion Last Updated: 08-Oct-2021 14:10 by Natalia Palacios) Normal [facility] Clinical Event Note-POD 4 / Abdominal [...] for wound check 10/07/21 at 10:15 am, [facility] 5th floor - F/U with Dr. [...] plan of care. Electronic Signatures: Concetta Shi (BELLOWS CHARGER ASSEMBLER-LAST REMODELER REPAIRER) (Signed 25-Sep-2021 13:30) Authored: Clinical Event Note Last Updated: 25-Sep-2021 13:30 by Concetta Shi (BELLOWS CHARGER ASSEMBLER-LAST REMODELER REPAIRER) Normal [facility] Daily Progress Note-Nuha stearns 09-25-2021 Daily Progress Note-Neurosurgery Service: Neurosurgery Subjective Data: MORALES LEE is a 46 year old Female who is Hospital Day # 11 and POD #4 for posterior L4-L5 decompression;posterior L4-L5 arthrodesis. Objective Data: Objective Information: T PRBPSpO2 [id number]/6799% Date/Time09/24 16: 16:: 16:00 Range (68 - 78 ) (18 - 19 ) (102 - 117 )/ (57 - 73 ) (95% - 99% ) As of 24-Sep-2021 21:40:00, patient is on 2 L/min of oxygen via nasal cannula. Pain reported at 09/24 21:40: 8 = Severe ---- Intake and Output ----- Mn/Dy/[facility]Out[facility] Sep 23, 2021 10:00 [id number] Sep 23, 2021 6:00 [id number] The Intake and Output Totals for the last 24 hours are: [facility]Out[facility] [id number] Physical Exam by System: Neurological: A&Ox3 RUE D5, B5, T5, HG5, IO5 LUE D4+, B4+, T4+, HG4+, IO5 RLE HF 3, KE4-, PF1, DF1 LLE HF 4-, KE4-, PF1, DF0 Recent Lab Results: Results: RFP: 09/24/2021 06:20 NA+ Cl- BUN / 143 108 H 5 L / ------- Glucose -- 92 K+ HCO3- Creat \ 3.9 29 [...] the note. I personally evaluated the patient [id number] Electronic Signatures: Lex Frederick) (Signed 25-Sep-2021 11:57) Authored: Note Completion Co-Signer: Service, Subjective Data, Objective Data, Assessment and Plan, Note Completion Alfredo Hendrickson (Resident)) (Signed 25-Sep-2021 05:56) Authored: Service, Subjective Data, Objective Data, Assessment and Plan, Note Completion Last Updated: 25-Sep-2021 11:57 by Lex Frederick) [facility] Dukf-dn-kuaaygavc - co -tx /c OT to address multidiscipon 09-25-2021 Rehab Iitg-sh-ogxjhmjoq - co-tx /c OT to address multidiscip Rehab: Info: Disciplinephysical enterostomal therapy nurse Mode of Treatmentphysical therapy; co-treatment; co-tx /c OT to address multidisciplinary functional needs and maximize pt's safety. Time IN15:05 Time OUT15:59 Total Treatment [id number] Patient in ... at end of sessionbed, [...] TubesIV; telemetry; Purewick catheter Mobility/Tone: Bed Mobility Assessment/Interventionss upine to sit; sit to supine; scooting/bridging; rolling right; rolling left Roll Left Hernando (Bed Mobility)maximum assist (25% patient effort); 2 person assist; verbal cues; nonverbal cues (demo/gesture) Roll Right Hernando (Bed Mobility)maximum assist (25% patient effort); 2 person assist; verbal cues; nonverbal cues (demo/gesture) Scoot/Bridge Hernando (Bed Mobility)maximum assist (25% patient effort); 2 person assist; nonverbal cues (demo/gesture); verbal cues Wbakel-bc-Yfl Hernando (Bed Mobility)maximum assist (25% patient effort); 2 person assist; verbal cues; nonverbal cues (demo/gesture) Rrr-gf-Yxidvr Hernando (Bed Mobility)maximum assist (25% patient effort); 2 person assist; nonverbal cues (demo/gesture); verbal cues Transfer Assessment/Interventionss it to stand transfer; stand to sit transfer Comment, Transfers3-4 attempts at standing. Each attempt, the pt was unable to get to full standing position and had little to 0 strength in (B)LEs to push down. On the final attempt, pt required 3 person assist but still was unable to get to full standing. Sit-Stand Hernando (Transfers)maximum assist (25% patient effort); verbal cues; nonverbal cues (demo/gesture); 2-3 persona assist Sit-Stand Assistive Device (Transfers)walker, front-wheeled Stand-Sit Hernando (Transfers)maximum assist (25% patient effort); nonverbal cues [...] Score8 Short Term Goals: Bed Mobility: Date [id number]-3508 Bed Mobility: Hernando Level Goalminimum assist (75% patients effort) Bed Mobility: Physical Assist Level Goal1-person assist, verbal cues Bed Mobility: Time Frame for Goal2 wks Transfer: Established [id number] Transfer: Transfer Type Utquazh-wn-pkzph/chair-to -bed; jhb-xl-tmnwn/uiycb-kl-xla Transfer: Hernando Level Goalmoderate assist (50% patients effort) Transfer: Physical Assist Level Goal1-person assist; verbal cues Transfer: Assistive Device Goalrolling walker Transfer: Time Frame for Goal2 wks Gait: Established Gait: Hernando Level Goalmoderate assist (50% patients effort) Gait: [...] goals is gradual Electronic Signatures: Yosi Campbell (SPOT WELDER LINE) (Signed 25-Sep-2021 16:59) Entered: Outcome Summary, Short Term Goals, Sensory, TherEx, Outcomes Tools, Info, Mobility/Tone Authored: Short Term Goals, Outcome Summary, TherEx, Outcomes Tools, Info, Mobility/Tone, Sensory Boone Broussard (PT) (Signed 01-Oct-2021 09:01) Co-Signer: Outcome Summary, Short Term Goals, Sensory, TherEx (more content not included)... Normal [facility] Rehab Note-speech language therapist apy - Partial co-tx with PT to tue09-25-2021 Rehab Note-occupational therapy - Partial co-tx with PT to Rehab: Info: Disciplineoccupational therapist Mode of Treatmentoccupational therapy; Partial co-tx with PT to maximize pt's mobility and safety. Time IN15:03 Time OUT15:56 Total Treatment [id number] Patient in ... at end of sessionbed, 3 railings up; alarm on Communicated with ... at end of sessionbedside nurse Patient Effortadequate Symptoms Noted During/After Treatmentfatigue; increased pain Treatment Considerations/Commentssp inal precautions, log roll Patient Response to TreatmentPt [...] Function Deficit (Cognition)moderate deficit; insight/awareness of deficits; self-monitoring/self-siobhan ection; problem solving/reasoning Safety Deficit (Cognitive)moderate deficit; decreased [...] required; physical/tactile prompts required Mobility/Tone: Bed Mobility Assessment/Interventionsr olling left; scooting/bridging; supine to sit; sit to supine; rolling right Roll Left Hernando (Bed Mobility)Pt required assist to bend BLE at knees and to initiate turn at shoulders and hips, verbal cues for grasp on bed rail, technique, direction follow, and encouragement.; set up; verbal cues; maximum assist (25% patient effort); 2 person assist Roll Right Hernando (Bed Mobility)Pt required assist to bend BLE at knees and to initiate turn at shoulders and hips, verbal cues for grasp on bed rail, technique, direction follow, and encouragement.; set up; verbal cues; maximum assist (25% patient effort); 2 person assist Scoot/Bridge Hernando (Bed Mobility)boost HOB; set up; verbal cues; maximum assist (25% patient effort); 2 person assist Dgxyyi-qp-Ocn Hernando (Bed Mobility)HOB elevated; set up; verbal cues; maximum assist (25% patient effort); 2 person assist Kki-on-Lvdsil Hernando (Bed Mobility)HOB elevated; set up; verbal cues; maximum assist (25% patient effort); 2 person assist Assistive Device (Bed Mobility)bed rails; draw sheet Transfer Assessment/Interventionss it to stand transfer Sit-Stand Hernando (Transfers)set up; verbal cues; maximum assist (25% patient effort); x 2-3 assist Safety Issues Impacting Function (Mobility)ability to follow commands; awareness of need for assistance; insight into deficits/self awareness; judgment; problem solving Impairments Impacting Function (Mobility)balance; cognition; endurance/activity tolerance; pain; strength; postural/trunk control ADL: BADL Assessment/Interventionto ileting; feeding; grooming; lower body dressing; upper body dressing; bathing Hernando Level (Bathing)set up; verbal cues; moderate assist (50% patient effort); 1 person assist Comment (Bathing)anticipated due to impaired balance, strength, and pain. Hernando Level (Upper Body Dressing)set up; verbal cues; moderate assist (50% patient effort) Comment (Upper Body Dressing)anticipated due to impaired balance, strength, and pain. Hernando Level (Lower Body Dressing)don; socks; dependent (less than 25% patient effort) Position (Lower Body Dressing)supine Hernando Level (Grooming)set up; contact guard Comment (Grooming)anticipated due to impaired balance, strength, and pain. Hernando Level (Feeding)set up; modified independence Comment (Feeding)anticipated Hernando Level (Toileting)dependent (less than 25% patient effort); purewick Impairments, BADL Safety/Performancebalance ; cognition; endurance/activity tolerance; strength; trunk/postural control Cognitive Impairments, BADL Safety/Performanceawarene ss, need for assistance; insight into deficits/self awareness; judgment; problem solving/reasoning Motor: Sitting, Static (Balance)good balance SBA Sitting, Dynamic (Balance)fair balance CGA Fxn-ut-Ybtpm (Balance)poor balance Max A x 2-3 - attempted Standing, Static (Balance)unable to balance Standing, Dynamic (Balance)unable to balance Balance ActivitiesPt sat EOB ~30 minutes with SBA/CGA for safety. Pt demonstrated good sitting balance and trunk control. Pt attempted STS transfers 3x with (more content not included)... Normal [facility] Daily Progress Note-Nuha stearns 09-24-2021 Daily Progress Note-Neurosurgery Service: Neurosurgery Subjective Data: MORALES LEE is a 46 year old Female who is Hospital Day # 10 and POD #3 for posterior L4-L5 decompression;posterior L4-L5 arthrodesis. Objective Data: Objective Information: T PRBPSpO2 Onmgw448202226/5499% Date/Time09/23 20:4809/23 20: 20: 20: 20:48 Range(35.5C - 36.1C ) (66 - 75 ) (16 - 19 ) (90 - 118 )/ (54 - 75 ) (98% - 99% ) As of 23-Sep-2021 22:43:00, patient is on 2 L/min of oxygen via nasal cannula. ---- Intake and Output ----- Mn/Dy/Year TimeIntakeOutputNet Sep 22, 2021 10:00 [id number] Sep 22, 2021 2:00 [id number] Sep 22, 2021 6:00 [id number] The Intake and Output Totals for the last 24 hours are: IntakeOutputNet [id number] Physical Exam by System: Neurological: A&Ox3 RUE [...] BUN / 143 108 H 9 / ------- Glucose -- 87 K+ HCO3- Creat \ 3.6 29 [...] the note. I personally evaluated the patient [id number] Comments/ Additional Findings Doing well. Kyphotic posture and Back Pain from instability and traumatic chance fracture significantly improved as compared to preop. She developed weakness involving ankle PF/DF following jain of alignment from buckling of hypertrophic ligamentum [...] ambulation and PT for now and terminal worker if the weakness fails to improve over [...] to the (more content not included)... Normal [facility] MAGNESIUMon 09-24-2021 Magnesium [Mass/Vol] 1.71 mg/dL Normal 1.60 - 2.40 [facility] Comment on above: Performed By: #### A FPA3 #### [facility] [address] [place] [address] Magnesium, Serumon Magnesium [Mass/Vol] 1.71 mg/dL See Below MG-G astroen terology-Rosendo moura 6 [facility] Work Phone: Comment on above: Reference Range: 1.6 0 - 2.40 RENAL FUNCTION PANELon 09-24 Albumin [Mass/Vol] 2.6 g/dL Low 3.4 - 5.0 [facility] Comment on above: Performed By: #### R ENAL ####[id number] [place] [address] Anion gap [Moles/Vol] 10 mmol/L Normal 10 - 20 [facility] Comment on above: Performed By: #### R ENAL ####[id number] [place] [address] Calcium [Mass/Vol] 7.7 mg/dL Low 8.6 - 10.6 [facility] Comment on above: Performed By: #### R ENAL ####[id number] [place] [address] Chloride [Moles/Vol] 108 mmol/L High 98 - 107 [facility] Comment on above: Performed By: #### R ENAL ####[id number] [place] [address] Creatinine [Mass/Vol] 0.39 mg/dL Low 0.50 - 1.05 [facility] Comment on above: Performed By: #### R ENAL ####[id number] [place] [address] eGFR FEMALE >90 Normal >90 [facility] Comment on above: Result Comment: CALC ULATIONS OF ESTIMATED GFR ARE PERFORMED USING THE 2020 CKD-EPI STUDY REFIT EQUATION WITHOUT THE RACE VARIABLE FOR THE IDMS-TRACEABLE CREATININE METHODS. https://jasn.asnjournals.org/content//ASN.582 [id number] Performed By: #### R ENAL ####[id number] [place] [address] Glucose [Mass/Vol] 92 mg/dL Normal 74 - 99 [facility] Comment on above: Performed By: #### R ENAL ####[id number] [place] [address] HCO3 (Bld) [Moles/Vol] 29 mmol/L Normal 21 - 32 [facility] Comment on above: Performed By: #### R ENAL ####[id number] [place] [address] Phosphate [Mass/Vol] 3.3 mg/dL Normal 2.5 - 4.9 [facility] Comment on above: Result Comment: The performance characteristics of phosphorus testing in heparinized plasma have been validated by the individual laboratory site where testing is performed. Testing on heparinized plasma is not approved by the FDA; however, such approval is not necessary. Performed By: #### R ENAL ####[id number] [place] [address] Potassium [Moles/Vol] 3.9 mmol/L Normal 3.5 - 5.3 [facility] Comment on above: Performed By: #### R ENAL ####[id number] [place] [address] Sodium [Moles/Vol] 143 mmol/L Normal 136 - 145 [facility] Comment on above: Performed By: #### R ENAL ####[id number] [place] [address] Urea nitrogen [Mass/Vol] 5 mg/dL Low 6 - 23 [facility] Comment on above: Performed By: #### R ENAL ####[id number] [place] [address] Rehab Note-attemptedon 09-24 Rehab Note-attempted Rehab: Info: Mode of Treatmentattempted Time IN15:00 Reason Treatment Not Performedpatient/family declined treatment; Pt declined participation in OT treatment stating she was on a very important call that she needed to take. Electronic Signatures: Silvana Marshall (OT) (Signed 24-Sep-2021 15:29) Authored: Info Last Updated: 24-Sep-2021 15:29 by Silvana Marshall (OT) Normal [facility] Rehab Note-physical therapyo n 09-24-2021 Rehab [...] 24-Sep-2021 15:07 by Boone Broussard (PT) Normal [facility] Renal Function Panelon 09-24 Albumin BCP dye [Mass/Vol] 2.6 g/dL below low threshold 3.4 - 5.0 [facility] Work Phone: Anion gap [Moles/Vol] 10 mmol/L 10 - 20 [facility] Work Phone: Calcium [...] Potassium [Moles/Vol] 3.9 mmol/L 3.5 - 5.3 [facility] I Work Phone: Sodium [Moles/Vol] 143 mmol/L 136 - 145 [facility] 6 I Work Phone: Urea nitrogen [Mass/Vol] 5 mg/dL below l ow threshold 6 - 23 [facility] Work Phone: Renal Function Panel >90 >90 [facility]roen [facility]ology[facility] 6 I Work Phone: Comment on above: CALCULATIONS OF IVY MATED GFR ARE PERFORMED USING THE 2020 CKD-EPI STUDY REFIT EQUATION WITHOUT THE RACE VARIABLE FOR THE IDMS-TRACEABLE CREATININE METHODS.https://jasn.asnjournals.org/content/early /ASN.2383693737 CBCon 09-23-2021 Erythrocyte distribution width (RBC) [Ratio] 13.1 % Normal 11.5 - 14.5 [facility] Comment on above: Performed By: #### C BC ####[id number] [place] [address] Hematocrit (Bld) [Volume fraction] 30.5 % Low 36.0 - 46.0 [facility] Comment on above: Performed By: #### C BC ####[id number] [place] [address] Hemoglobin (Bld) [Mass/Vol] 9.9 g/dL Low 12.0 - 16.0 [facility] Comment on above: Performed By: #### C BC ####[id number] [place] [address] MCHC (RBC) [Mass/Vol] 32.5 g/dL Normal 32.0 - 36.0 [facility] Comment on above: Performed By: #### C BC ####[id number] [place] [address] MCV (RBC) [Entitic vol] 92 fL Normal 80 - 100 [facility] Comment on above: Performed By: #### C BC ####[id number] [place] [address] NUCLEATED RBC 0.0 /100 WBC Normal 0.0-0.0 [facility] Comment on above: Performed By: #### C BC ####[id number] [place] [address] Platelets (Bld) [#/Vol] 244 10*3/uL Normal 150 - 450 [facility] Comment on above: Performed By: #### C BC ####[id number] [place] [address] RBC 3.33 x10E12/L Low 4.00 - 5.20 [facility] Comment on above: Performed By: #### C BC ####[id number] [place] [address] WBC (Bld) [#/Vol] 8.6 10*3/uL Normal 4.4 - 11.3 [facility] Comment on above: Performed By: #### C BC ####[id number] [place] [address] CBC AND DIFFERENTIALon 09-23 % AUTOMATED IMMATURE GRAN 0.4 % Normal 0.0 - 0.9 [facility] Comment on above: Result Comment: Jaleesa ture Granulocyte Count (IG) includes promyelocytes, myelocytes and metamyelocytes but does not include bands. Percent differential counts (%) should be interpreted in the context of the absolute cell counts (cells/L). Performed By: #### C BC #### [facility] [address] [place] [address] Basophils (Bld) [#/Vol] 0.03 10*3/uL Normal 0.00 - 0.10 [facility] Comment on above: Performed By: #### C BC #### [facility] [address] [place] [address] Basophils/100 WBC (Bld) 0.4 % Normal 0.0 - 2.0 [facility] Comment on above: Performed By: #### C BC #### [facility] [address] [place] [address] Eosinophils (Bld) [#/Vol] 0.27 10*3/uL Normal 0.00 - 0.70 [facility] Comment on above: Performed By: #### C BC #### [facility] [address] [place] [address] Eosinophils/100 WBC (Bld) 3.6 % Normal 0.0 - 6.0 [facility] Comment on above: Performed By: #### C BC #### [facility] [address] [place] [address] Erythrocyte distribution width (RBC) [Ratio] 13.2 % Normal 11.5 - 14.5 [facility] Comment on above: Performed By: #### C BC #### [facility] [address] [place] [address] Hematocrit (Bld) [Volume fraction] 30.9 % Low 36.0 - 46.0 [facility] Comment on above: Performed By: #### C BC #### [facility] [address] [place] [address] Hemoglobin (Bld) [Mass/Vol] 10.4 g/dL Low 12.0 - 16.0 [facility] Comment on above: Performed By: #### C BC #### [facility] [address] [place] [address] Lymphocytes (Bld) [#/Vol] 2.41 10*3/uL Normal 1.20 - 4.80 [facility] Comment on above: Performed By: #### C BC #### [facility] [address] [place] [address] Lymphocytes/100 WBC (Bld) 31.9 % Normal 13.0 - 44.0 [facility] Comment on above: Performed By: #### C BC #### [facility] [address] [place] [address] MCHC (RBC) [Mass/Vol] 33.7 g/dL Normal 32.0 - 36.0 [facility] Comment on above: Performed By: #### C BC #### [facility] [address] [place] [address] MCV (RBC) [Entitic vol] 91 fL Normal 80 - 100 [facility] Comment on above: Performed By: #### C BC #### [facility] [address] [place] [address] Monocytes (Bld) [#/Vol] 0.49 10*3/uL Normal 0.10 - 1.00 [facility] Comment on above: Performed By: #### C BC #### [facility] [address] [place] [address] Monocytes/100 WBC (Bld) 6.5 % Normal 2.0 - 10.0 [facility] Comment on above: Performed By: #### C BC #### [facility] [address] [place] [address] Neutrophils (Bld) [#/Vol] 4.32 10*3/uL Normal 1.20 - 7.70 [facility] Comment on above: Performed By: #### C BC #### [facility] [address] [place] [address] Neutrophils/100 WBC (Bld) 57.2 % Normal 40.0 - 80.0 [facility] Comment on above: Performed By: #### C BC #### [facility] [address] [place] [address] NUCLEATED RBC 0.0 /100 WBC Normal 0.0-0.0 [facility] Comment on above: Performed By: #### C BC #### [facility] [address] [place] [address] Platelets (Bld) [#/Vol] 228 10*3/uL Normal 150 - 450 [facility] Comment on above: Performed By: #### C BC #### [facility] [address] [place] [address] RBC 3.39 x10E12/L Low 4.00 - 5.20 [facility] Comment on above: Performed By: #### C BC #### [facility] [address] [place] [address] WBC (Bld) [#/Vol] 7.6 10*3/uL Normal 4.4 - 11.3 [facility] Comment on above: Performed By: #### C BC #### [facility] [address] [place] [address] Complete Blood Count + Diffe rentialon 09-23-2021 Basophils/100 WBC (Bld) 0.4 % 0.0 - 2.0 M [facility] Work Phone: Erythrocyte [...] (Bld) 31.9 % See Below [facility] 6 [facility] Work Phone: Comment on above: Reference Range: 13. 0 - 44.0 MCHC (RBC) [Mass/Vol] 33.7 g/dL See Below [facility] I Work Phone: Comment on above: Reference Range: 32. 0 - 36.0 MCV (RBC) [Entitic vol] 91 fL 80 - 100 M [facility] I Work Phone: Monocytes/100 WBC (Bld) 6.5 % 2.0 - 10.0 M [facility] I Work Phone: Neutrophils/100 WBC (Bld) [...] 10*3/uL 4.4 - 11.3 [facility] troen terology-[facility] 6 [facility] Work Phone: Complete Blood Count + Differential 0.03 {x10E9/L} See Below [facility] 6 [facility] Work Phone: Comment on above: Reference Range: 0.0 0 - 0.10 Complete Blood Count + Differential 0.27 {x10E9/L} See Below [facility] 6 [facility] Work Phone: Comment on above: Reference Range: 0.0 0 - 0.70 Complete Blood Count + Differential 0.49 {x10E9/L} See Below [facility] 6 [facility] Work Phone: Comment on above: Reference Range: 0.1 0 - 1.00 Complete Blood Count + Differential 2.41 {x10E9/L} See Below [facility] 6 [facility] Work Phone: Comment on above: Reference Range: 1.2 0 - 4.80 Complete Blood Count + Differential 4.32 {x10E9/L} See Below [facility] 6 [facility] Work Phone: Comment on above: Reference Range: 1.2 0 - 7.70 Complete Blood Count + Differential 3.6 % 0.0 - 6.0 [facility] 6 [facility] Work Phone: Complete Blood Count + Differential 0.4 % 0.0 - 0.9 [facility] 6 [facility] Work Phone: Comment on above: Immature Granulocyte Count (IG) includes promyelocytes, myelocytes and metamyelocytes but does not include bands. Percent differential counts (%) should be interpreted in the context of the absolute cell counts (cells/L). Complete Blood Count + Differential 0.0 {/100_WBC} 0.0-0.0 [facility] terraiza[facility] 6 I Work Phone: Laboratory - Hematology and Cell countson 09-23-2021 Erythrocyte distribution width (RBC) [Ratio] 13.1 % See Below [facility] 6 I Work Phone: Comment on above: Reference Range: 11. 5 - 14.5 Hematocrit (Bld) [Volume fraction] 30.5 % below low threshold See Below [facility] 6 I Work Phone: Comment on above: Reference Range: 36. 0 - 46.0 Hemoglobin (Bld) [Mass/Vol] 9.9 g/dL below low threshold See Below [facility] 6 [facility] Work Phone: Comment on above: Reference Range: 12. 0 - 16.0 MCHC (RBC) [Mass/Vol] 32.5 g/dL See Below [facility] I Work Phone: Comment on above: Reference Range: 32. 0 - 36.0 MCV (RBC) [Entitic vol] 92 fL 80 - 100 M G-Gastroen carlos alberto[facility] 6 I Work Phone: Platelets (Bld) [#/Vol] 244 10*3/uL 150 - 450 [facility]Gastroen carlos alberto-[facility] 6 I Work Phone: RBC (Bld) [#/Vol] 3.33 {x10E12/L} below low threshold See Below [facility] 6 I Work Phone: Comment on above: Reference Range: 4.0 0 - 5.20 WBC (Bld) [#/Vol] 8.6 10*3/uL 4.4 - 11.3 [facility] tro[facility]ology[facility] 6 I Work Phone: MAGNESIUMon 09-23-2021 Magnesium [Mass/Vol] 1.68 mg/dL Normal 1.60 - 2.40 [facility] Comment on above: Performed By: #### C BC #### [facility] [address] [place] [address] Magnesium, Serumon Magnesium [Mass/Vol] 1.68 mg/dL See [...] (Advanced Practice Nurse) done by Ambrocio Izaguirre ([facility]) Discharge - Partial Reconciliation: 23-Sep-2021 13:21 by: Ambrocio Izaguirre ([facility]) Discharge - Partial Reconciliation: 24-Sep-2021 10:12 by: Ambrocio Izaguirre ([facility]) Discharge - Partial Reconciliation: 30-Sep-2021 14:12 by: Concetta Shi ([facility]) Discharge - Partial Reconciliation: 30-Sep-2021 14:14 by: Concetta Shi ([facility]) Discharge - Reconciliation: 30-Sep-2021 14:24 by: Concetta Shi ([facility]) Discharge - Reset to Incomplete: 02-Oct-2021 15:36 by: Ambrocio Izaguirre ([facility]) Discharge - Reconciliation: 02-Oct-2021 15:40 by: Ambrocio Izaguirre ([facility]) Discharge - Reset to Incomplete: 02-Oct-2021 15:57 by: Ambrocio Izaguirre ([facility]) Discharge - Reconciliation: 02-Oct-2021 15:58 by: Ambrocio Izaguirre ([facility]) [facility] DISCHARGE DateReconciliation Comment/ Additional Information [...] not required (more content not included)... Normal [facility] PATH REVIEW-IMMUNOHEMATOLOGY on 09-23-2021 PATH REV-IMMUNOHEMOTOL LETA Normal [facility] Comment on above: Result Comment: By [...] Performed By: #### A FPA3 #### [facility] [address] [place] [address] RENAL FUNCTION PANELon 09-23 Albumin [Mass/Vol] 2.7 g/dL Low 3.4 - 5.0 [facility] Comment on above: Performed By: #### V FPA3 #### [facility] [address] [place] [address] Anion gap [Moles/Vol] 10 mmol/L Normal 10 - 20 [facility] Comment on above: Performed By: #### V FPA3 #### [facility] [address] [place] [address] Calcium [Mass/Vol] 7.9 mg/dL Low 8.6 - 10.6 [facility] Comment on above: Performed By: #### V FPA3 #### [facility] [address] [place] [address] Chloride [Moles/Vol] 108 mmol/L High 98 - 107 [facility] Comment on above: Performed By: #### V FPA3 #### [facility] [address] [place] [address] Creatinine [Mass/Vol] 0.39 mg/dL Low 0.50 - 1.05 [facility] Comment on above: Performed By: #### V FPA3 #### [facility] [address] [place] [address] eGFR FEMALE >90 Normal >90 [facility] Comment on above: Result Comment: CALC ULATIONS OF ESTIMATED GFR ARE PERFORMED USING THE 2020 CKD-EPI STUDY REFIT EQUATION WITHOUT THE RACE VARIABLE FOR THE IDMS-TRACEABLE CREATININE METHODS. https://jasn.asnjournals.org/content/early/ASN.995 2314454 Performed By: #### V FPA3 #### [facility] [address] [place] [address] Glucose [Mass/Vol] 87 mg/dL Normal 74 - 99 [facility] Comment on above: Performed By: #### V FPA3 #### [facility] [address] [place] [address] HCO3 (Bld) [Moles/Vol] 29 mmol/L Normal 21 - 32 [facility] Comment on above: Performed By: #### V FPA3 #### [facility] [address] [place] [address] Phosphate [Mass/Vol] 2.7 mg/dL Normal 2.5 - 4.9 [facility] Comment on above: Result Comment: The performance characteristics of phosphorus testing in heparinized plasma have been validated by the individual laboratory site where testing is performed. Testing on heparinized plasma is not approved by the FDA; however, such approval is not necessary. Performed By: #### V FPA3 #### [facility] [address] [place] [address] Potassium [Moles/Vol] 3.6 mmol/L Normal 3.5 - 5.3 [facility] Comment on above: Performed By: #### V FPA3 #### [facility] [address] [place] [address] Sodium [Moles/Vol] 143 mmol/L Normal 136 - 145 [facility] Comment on above: Performed By: #### V FPA3 #### [facility] [address] [place] [address] Urea nitrogen [Mass/Vol] 9 mg/dL Normal 6 - 23 [facility] Comment on above: Performed By: #### V FPA3 #### [facility] [address] [place] [address] Rehab Note-individual therap yon 09-23-2021 Rehab Note-individual therapy Rehab: Info: Disciplinephysical therapist Mode of Treatmentphysical therapy; individual therapy Time IN14:50 Time OUT15:29 Total Treatment [id number] Patient in ... at end of sessionbed, [...] accuracy; verbal cues/prompting required Mobility/Tone: Bed Mobility Assessment/Interventionsr olling left; scooting/bridging; supine to sit; sit to supine; rolling right Roll Left [place] (Bed Mobility)verbal cues; maximum assist (25% patient effort); 1 person assist Roll Right [place] (Bed Mobility)maximum assist (25% patient effort); verbal cues; 1 person assist Scoot/Bridge [place] (Bed Mobility)verbal cues; maximum assist (25% patient effort); 2 person assist; boost HOB Yerckt-cu-Jdp [place] (Bed Mobility)verbal cues; maximum assist (25% patient effort); 1 person assist Kjl-ig-Lmbbdi [place] (Bed Mobility)set up; verbal cues; maximum assist (25% patient effort); 1 person assist Assistive Device (Bed Mobility)bed rails; draw sheet Transfer Assessment/Interventionss it to stand transfer; stand to sit transfer Sit-Stand [place] (Transfers)2 person assist; moderate assist (50% patient effort) Sit-Stand Assistive Device (Transfers)B arm-in-arm assist Stand-Sit [place] (Transfers)2 person assist; moderate assist (50% patient [...] 23-Sep-2021 15:50 by Boone Broussard (PT) Normal [facility] Renal Function Panelon 09-23 Albumin BCP dye [Mass/Vol] 2.7 g/dL below low threshold 3.4 - 5.0 [facility] 6 I Work Phone: Anion gap [Moles/Vol] 10 mmol/L 10 - 20 [facility] 6 I Work Phone: Calcium [...] Potassium [Moles/Vol] 3.6 mmol/L 3.5 - 5.3 [facility] 6 I Work Phone: Sodium [Moles/Vol] 143 mmol/L 136 - 145 [facility]ology[facility] [facility] 6 I Work Phone: Urea nitrogen [Mass/Vol] 9 mg/dL 6 - 23 [facility] 6 I Work Phone: Renal Function Panel >90 >90 [facility] Work Phone: Comment on above: CALCULATIONS OF IVY MATED GFR ARE PERFORMED USING THE 2020 CKD-EPI STUDY REFIT EQUATION WITHOUT THE RACE VARIABLE FOR THE IDMS-TRACEABLE CREATININE METHODS.https://jasn.asnjournals.org/content/ /ASN.5782016337 ANTIBODY IDENT.on 09-22-2021 ANTIBODY IDENT. Anti-E Normal [facility] Comment on above: Performed By: #### V FPA3 #### [facility] [address] [place] [address] CBCon 09-22-2021 Erythrocyte distribution width (RBC) [Ratio] 13.2 % Normal 11.5 - 14.5 [facility] Comment on above: Performed By: #### V FPA3 #### [facility] [address] [place] [address] Hematocrit (Bld) [Volume fraction] 30.6 % Low 36.0 - 46.0 [facility] Comment on above: Performed By: #### V FPA3 #### [facility] [address] [place] [address] Hemoglobin (Bld) [Mass/Vol] 10.2 g/dL Low 12.0 - 16.0 [facility] Comment on above: Performed By: #### V FPA3 #### [facility] [address] [place] [address] MCHC (RBC) [Mass/Vol] 33.3 g/dL Normal 32.0 - 36.0 [facility] Comment on above: Performed By: #### V FPA3 #### [facility] [address] [place] [address] MCV (RBC) [Entitic vol] 91 fL Normal 80 - 100 [facility] Comment on above: Performed By: #### V FPA3 #### [facility] [address] [place] [address] NUCLEATED RBC 0.0 /100 WBC Normal 0.0-0.0 [facility] Comment on above: Performed By: #### V FPA3 #### [facility] [address] [place] [address] Platelets (Bld) [#/Vol] 215 10*3/uL Normal 150 - 450 [facility] Comment on above: Performed By: #### V FPA3 #### [facility] [address] [place] [address] RBC 3.37 x10E12/L Low 4.00 - 5.20 [facility] Comment on above: Performed By: #### V FPA3 #### [facility] [address] [place] [address] WBC (Bld) [#/Vol] 9.6 10*3/uL Normal 4.4 - 11.3 [facility] Comment on above: Performed By: #### V FPA3 #### [facility] [address] [place] [address] CBC AND DIFFERENTIALon 09-22 % AUTOMATED IMMATURE GRAN 0.4 % Normal 0.0 - 0.9 [facility] Comment on above: Result Comment: Jaleesa ture Granulocyte Count (IG) includes promyelocytes, myelocytes and metamyelocytes but does not include bands. Percent differential counts (%) should be interpreted in the context of the absolute cell counts (cells/L). Performed By: #### C BCDF ####[id number] [place] [address] Basophils (Bld) [#/Vol] 0.02 10*3/uL Normal 0.00 - 0.10 [facility] Comment on above: Performed By: #### C BCDF ####[id number] [place] [address] Basophils/100 WBC (Bld) 0.2 % Normal 0.0 - 2.0 [facility] Comment on above: Performed By: #### C BCDF ####[id number] [place] [address] Eosinophils (Bld) [#/Vol] 0.04 10*3/uL Normal 0.00 - 0.70 [facility] Comment on above: Performed By: #### C BCDF ####[id number] [place] [address] Eosinophils/100 WBC (Bld) 0.4 % Normal 0.0 - 6.0 [facility] Comment on above: Performed By: #### C BCDF ####[id number] [place] [address] Erythrocyte distribution width (RBC) [Ratio] 13.2 % Normal 11.5 - 14.5 [facility] Comment on above: Performed By: #### C BCDF ####[id number] [place] [address] Hematocrit (Bld) [Volume fraction] 30.6 % Low 36.0 - 46.0 [facility] Comment on above: Performed By: #### C BCDF ####[id number] [place] [address] Hemoglobin (Bld) [Mass/Vol] 10.3 g/dL Low 12.0 - 16.0 [facility] Comment on above: Performed By: #### C BCDF ####[id number] [place] [address] Lymphocytes (Bld) [#/Vol] 2.19 10*3/uL Normal 1.20 - 4.80 [facility] Comment on above: Performed By: #### C BCDF ####[id number] [place] [address] Lymphocytes/100 WBC (Bld) 19.9 % Normal 13.0 - 44.0 [facility] Comment on above: Performed By: #### C BCDF ####[id number] [place] [address] MCHC (RBC) [Mass/Vol] 33.7 g/dL Normal 32.0 - 36.0 [facility] Comment on above: Performed By: #### C BCDF ####[id number] [place] [address] MCV (RBC) [Entitic vol] 90 fL Normal 80 - 100 [facility] Comment on above: Performed By: #### C BCDF ####[id number] [place] [address] Monocytes (Bld) [#/Vol] 0.71 10*3/uL Normal 0.10 - 1.00 [facility] Comment on above: Performed By: #### C BCDF ####[id number] [place] [address] Monocytes/100 WBC (Bld) 6.5 % Normal 2.0 - 10.0 [facility] Comment on above: Performed By: #### C BCDF ####[id number] [place] [address] Neutrophils (Bld) [#/Vol] 7.98 10*3/uL High 1.20 - 7.70 [facility] Comment on above: Performed By: #### C BCDF ####[id number] [place] [address] Neutrophils/100 WBC (Bld) 72.6 % Normal 40.0 - 80.0 [facility] Comment on above: Performed By: #### C BCDF ####[id number] [place] [address] NUCLEATED RBC 0.0 /100 WBC Normal 0.0-0.0 [facility] Comment on above: Performed By: #### C BCDF ####[id number] [place] [address] Platelets (Bld) [#/Vol] 242 10*3/uL Normal 150 - 450 [facility] Comment on above: Performed By: #### C BCDF ####[id number] [place] [address] RBC 3.39 x10E12/L Low 4.00 - 5.20 [facility] Comment on above: Performed By: #### C BCDF ####[id number] [place] [address] WBC (Bld) [#/Vol] 11.0 10*3/uL Normal 4.4 - 11.3 [facility] Comment on above: Performed By: #### C BCDF ####[id number] [place] [address] Complete Blood Count + Diffe vidya 09-22-2021 Basophils/100 WBC (Bld) 0.2 % 0.0 - 2.0 [facility] Work Phone: Erythrocyte [...] MCHC (RBC) [Mass/Vol] 33.7 g/dL See Below [facility] Work Phone: Comment on above: Reference Range: 32. 0 - 36.0 MCV (RBC) [Entitic vol] 90 fL 80 - 100 [facility] Work Phone: Monocytes/100 WBC (Bld) 6.5 % 2.0 - 10.0 [facility] Work Phone: Neutrophils/100 [...] Differential 0.02 {x10E9/L} See Below [facility] I Work Phone: [...] with at bedside. She is currently on ACCESS CONTROL OFFICER for pain, and reports being tired this [...] this time. Objective: Objective Information: T PRBPSpO2 [id number]/5792% Date/Time09/22 0:001/18 8:001/18 8:001/18 8:001/18 8:00 Range(36.3C [...] Insight: Fair Judgment: Fair. Medications: Continuous Medications ------- 1. HYDROmorphone ACCESS CONTROL OFFICER 25 mg/ NaCL 0.9% 50 mL: 2.6 mg/hr IV ACCESS CONTROL OFFICER 2. Sodium Chloride 0.9% Infusion: 1000 mL IntraVenous Scheduled Medications ------- 1. Acetaminophen: 650 mg Oral Every 6 [...] 10 mg Oral At Bedtime PRN Medications ------- 1. Bisacodyl Rectal: 10 mg Rectal Daily 2. diazePAM (VALIUM): 5 mg Oral Every 8 Hours 3. Fleet Adult (Sodium Phosphate) Rectal: 1 enema Rectal Daily 4. Naloxone Injectable: 0.2 mg IntraVenous Push Once 5. Polyethylene Glycol: 17 gram(s) Oral Daily Currently Suspended Medications ------- 1. Lisinopril: 20 mg Oral Daily Recent [...] from Suboxone (more content not included)... Normal [facility] Daily Progress Note-Nuha stearns 09-22-2021 Daily Progress Note-Neurosurgery Service: Neurosurgery Subjective Data: MORALES LEE is a 46 year old Female who is Hospital Day # 8 and POD #1 for posterior L4-L5 decompression;posterior L4-L5 arthrodesis. Objective Data: Objective Information: T PRBPSpO2 [id number]/5895% Date/Time09/22 0:00118 0:00118 0:00118 0:00118 0:00 Range(36.2C - 36.8C ) (82 - 109 ) (12 - 20 ) (85 - 132 )/ (49 - 89 ) (94% - 100% ) As of 21-Sep-2021 17:00:00, patient is on 4 L/min of oxygen via nasal cannula. Pain reported at 09/21 16:33: 5 = Moderate ---- Intake and Output ----- Mn/Dy/Year TimeIntakeOutputNet Sep 20, 2021 10:00 [id number] Sep 20, 2021 6:00 [id number] The Intake and Output Totals for the last 24 hours are: IntakeOutputNet [id number] Physical Exam by System: Neurological: A&Ox3 RUE [...] Chronic pain recs- intra-op ketamine, meloxicam post-op, ACCESS CONTROL OFFICER until good PT eval, Suboxone as OP COWS psych recs alvares for retention SCD's, [facility] Attestation: Note Completion: I am [...] the note. I personally evaluated the patient [id number] Electronic Signatures: Fidel Maciel (Resident)) (Signed 22-Sep-2021 00:35) Authored: Service, Subjective Data, Objective Data, Assessment and Plan, Note Completion Lex Frederick) (Signed 22-Sep-2021 10:31) Authored: Note Completion Co-Signer: Service, Subjective Data, Objective Data, Assessment and Plan, Note Completion Last Updated: 22-Sep-2021 10:31 by Lex Frederick) [facility] Discharge [id number] 022 Discharge Profile2 Discharge Orders: Anticipated Discharge Date: Anticipated Discharge [id number] Problem List: Additional Dx: Spinal stenosis of [...] Please call your Neurosurgeon's office (Dr. Frederick [phone]) if you have any questions. -If you [...] twist. Instead, bend at knees to order picker/assembler objects. Wound Care: Inspect your incision daily [...] taking Acetamin (more content not included)... Normal [facility] LACTATEon 09-22-2021 Lactate [Moles/Vol] 0.8 mmol/L Normal 0.4 - 2.0 [facility] Comment on above: Result Comment: Trina puncture immediately after or during the administration of Metamizole may lead to falsely low results. Testing should be performed immediately prior to Metamizole dosing. Performed By: #### C BC #### [facility] [address] [place] [address] Laboratory - Hematology and Cell countson 09-22-2021 Erythrocyte distribution width (RBC) [Ratio] 13.2 % See Below [facility] I Work Phone: Comment on above: Reference Range: 11. 5 - 14.5 Hematocrit (Bld) [Volume fraction] 30.6 % below low threshold See Below [facility] Work Phone: Comment on above: Reference Range: 36. 0 - 46.0 Hemoglobin (Bld) [Mass/Vol] 10.2 g/dL below low threshold See Below [facility] 6 [facility] Work Phone: Comment on above: Reference Range: 12. 0 - 16.0 MCHC (RBC) [Mass/Vol] 33.3 g/dL See Below [facility] 6 I Work Phone: Comment on above: Reference Range: 32. 0 - 36.0 MCV (RBC) [Entitic vol] 91 fL 80 - 100 [facility] 6 [facility] Work Phone: Platelets (Bld) [#/Vol] 215 10*3/uL 150 - 450 [facility] 6 [facility] Work Phone: RBC (Bld) [#/Vol] 3.37 {x10E12/L} below low threshold See Below [facility] 6 [facility] Work Phone: Comment on above: Reference Range: 4.0 0 - 5.20 WBC (Bld) [#/Vol] 9.6 10*3/uL 4.4 - 11.3 [facility]Gas troen terology-[facility] 6 [facility] Work Phone: Lactate, Levelon 09-22-2021 Lactate [Moles/Vol] 0.8 mmol/L 0.4 - 2.0 [facility]Ga stroen terology[facility] 6 [facility] Work Phone: Comment on above: Venipuncture immedia tely after or during the administration of Metamizole may lead to falsely low results. Testing should be performed immediately prior to Metamizole dosing. No Panel Informationon 09-22 0.0 {/100_WBC} 0.0-0.0 [facility] I Work Phone: OT Evaluation v2-occupationa l therapy - co-eval with PT to tue09-22-2021 OT Evaluation v2-occupational therapy - co-eval with PT to Rehab: Info: Mode of Treatmentoccupational therapy; co-eval with PT to maximize pt's mobility and safety. Time IN10:50 Time OUT11:40 Total Treatment [id number] Patient in ... at end of sessionbed, 3 railings up; alarm on Communicated with ... at end of sessionbedside nurse Patient Effortgood Symptoms Noted During/After Treatmentfatigue; increased pain Patient Profile Reviewedyes Onset of Illness/Injury or Date of [id number] Reason for Referral-09/18/21: s/p exploration of spinal [...] EOB sitting. Pertinent History of Current Functional [id number] y/o with hx of HTN, C6-7 ACDF, T1 comp fracture s/p T11-12 lami c/b worsening kyphosis s/p 12/2020 L1 transpedic decompression/SPOs/T5-L4 fusion, b/l ulnar neuropathies, chronic pain, thoracic kyphosis. Hand Dominanceright Hearing Precautions/LimitationsWN L Precautions/Limitationsfa ll precautions; spinal precautions; log roll Developmental Statusindependent, [...] TubesIV; triple lumen; telemetry; urethral catheter indwelling; ACCESS CONTROL OFFICER pump, DAVOL drain, wound vac O2 Deliverynasal cannula; 4L Pre Treatment Patient Positionsupine Pre Treatment Blood Pressure Ommkdybp79 mmHg Pre Treatment Diastolic (mm Hg)46 mmHg Pre Treatment Heart Rate (beats/min)67 Pre Treatment Respiratory Rate (breaths/min)19 Pre Treatment SpO2 (%)96 % Pre Treatment Oxygen Deliverysupplemental O2 Pre Treatment CommentsMAP 56 During Treatment Patient Positionsitting During Treatment Blood Pressure Zledlazk13 mmHg During Treatment Diastolic (mm Hg)77 mmHg [...] Function Deficit (Cognition)moderate deficit; insight/awareness of deficits; self-monitoring/self-siobhan ection; problem solving/reasoning Safety Deficit (Cognitive)moderate deficit; decreased [...] screen and functional transfers/mobility. Mobility/Tone: Bed Mobility Assessment/Interventionsr olling left; scooting/bridging; supine to sit; sit to supine Roll Left Hernando (Bed Mobility)set up; verbal cues; 2 person assist; Pt required assist to bend BLE at (more content not included)... Normal [facility] PATH REVIEW-IMMUNOHEMATOLOGY on 09-22-2021 PATH REV-IMMUNOHEMOTOL ZURDO Normal [facility] Comment on above: Result Comment: By [...] PATIENT. Performed By: #### C #### [facility] [address] [place] [address] PT Evaluation d2-jj-kxhrnixp t - co-treatment with OT to maxion 09-22-2021 PT Evaluation v1-uf-asempgrnt - co-treatment with OT to [facility] Rehab: Info: Mode of Treatmentphysical therapy; co-treatment; co-treatment with OT to maximize safety, mobility and ADL participation Time IN10:50 Time OUT11:40 Total Treatment [id number] Patient in ... at end of sessionbed, 3 railings up; alarm on Communicated with ... at end of sessionbedside nurse Patient Effortgood Symptoms Noted During/After Treatmentfatigue; increased pain Patient Profile Reviewedyes Onset of Illness/Injury or Date of [id number]-2632 Reason for Referral-09/18/21: s/p exploration of spinal fusion, reduction of L4/5 dislocation, L5-pelvis instrumented fusion with L4-pelvis posterolateral arthrodesis, extension of prior T6-L4 instrumentation with multiple kwame construct and side connectors. -09/21/21: s/p posterior L4-L5 decompression, posterior L4-L5 arthrodesis. Patient/Family/Caregiver Comments/ObservationsDisc ussed low BPs with RN. Pt asymptomatic. RN [...] b/l ulnar neuropathies, chronic pain, thoracic kyphosis. Precautions/Limitationsfa ll precautions; spinal precautions; log roll Ambulation Skills [...] TubesIV; triple lumen; telemetry; urethral catheter indwelling; ACCESS CONTROL OFFICER pump, DAVOL drain, wound vac O2 Deliverynasal cannula; 4L Pre Treatment Patient Positionsupine Pre Treatment Blood Pressure Rxcedbqh39 mmHg Pre Treatment Diastolic (mm Hg)46 mmHg Pre Treatment Heart Rate (beats/min)67 Pre Treatment SpO2 (%)96 % Pre Treatment Oxygen Deliverysupplemental O2 During Treatment Patient Positionsitting During Treatment Blood Pressure Cywscrgm35 mmHg During Treatment Diastolic (mm Hg)77 mmHg [...] DF 1/5, PF 2/5 Mobility/Tone: Bed Mobility Assessment/Interventionsr olling left; scooting/bridging; supine to sit; sit to supine; rolling right Roll Left Hernando (Bed Mobility)verbal cues; 2 person assist; Pt required assist to bend BLE at knees and to initiate turn at shoulders and hips, verbal cues for grasp on bed rail, technique, direction follow, and encouragement.; maximum assist (25% patient effort) Roll Right Hernando (Bed Mobility)2 person assist; maximum assist (25% patient effort); verbal cues Scoot/Bridge Hernando (Bed Mobility)verbal cues; maximum assist (25% patient effort); 2 person assist; boost HOB Ruhuug-gi-Cut Hernando (Bed Mobility)verbal cues; maximum assist (25% patient effort); 1 person assist Tvy-qt-Pearic Hernando (Bed Mobility)set up; verbal cues; maximum assist (25% patient effort); 1 person assist Assistive Device (Bed Mobility)bed rails; draw sheet Impairments Impacting Function (Mobility)balance; cognition; endurance/activity tolerance; pain; strength; postural/trunk control; motor control Motor: Sitting, Static (Balance)SBA Sitting, Dynamic (Balance)CGA Nkf-mj-Gjpav (Balance)MADELIN this visit. Pt hypotensive Sensory: Pre-Treatment Pain Rating7/10 Post-Treatment Pain Rating7/10 Comment, Pre/Post Treatment PainPt reported pain throughout buttocks and back, utilized ACCESS CONTROL OFFICER pump as needed. Pain LimitationFunctional mobility limited due pain; ADLs/IADLs limited due to pain; Participation limited by pain; RN or team was notified of limitations due to p (more content not included)... Normal [facility] RENAL FUNCTION PANELon 09-22 Albumin [Mass/Vol] 2.7 g/dL Low 3.4 - 5.0 [facility] Comment on above: Performed By: #### C BC #### [facility] [address] [place] [address] Anion gap [Moles/Vol] 10 mmol/L Normal 10 - 20 [facility] Comment on above: Performed By: #### C BC #### [place] [id number] [place] [address] Calcium [Mass/Vol] 7.8 mg/dL Low 8.6 - 10.6 [facility] Comment on above: Performed By: #### C BC #### [facility] [address] [place] [address] Chloride [Moles/Vol] 105 mmol/L Normal 98 - 107 [facility] Comment on above: Performed By: #### C BC #### [facility] [address] [place] [address] Creatinine [Mass/Vol] 0.49 mg/dL Low 0.50 - 1.05 [facility] Comment on above: Performed By: #### C BC #### [place] [address] [place] [address] eGFR FEMALE >90 Normal >90 [facility] Comment on above: Result Comment: CALC ULATIONS OF ESTIMATED GFR ARE PERFORMED USING THE 2020 CKD-EPI STUDY REFIT EQUATION WITHOUT THE RACE VARIABLE FOR THE IDMS-TRACEABLE CREATININE METHODS. https://jasn.asnjournals.org/content/early//ASN.977 9998568 Performed By: #### C BC #### [facility] [address] [place] [address] Glucose [Mass/Vol] 93 mg/dL Normal 74 - 99 [facility] Comment on above: Performed By: #### C BC #### [facility] [address] [place] [address] HCO3 (Bld) [Moles/Vol] 29 mmol/L Normal 21 - 32 [facility] Comment on above: Performed By: #### C BC #### [facility] [address] [place] [address] Phosphate [Mass/Vol] 2.4 mg/dL Low 2.5 - 4.9 [facility] Comment on above: Result Comment: The performance characteristics of phosphorus testing in heparinized plasma have been validated by the individual laboratory site where testing is performed. Testing on heparinized plasma is not approved by the FDA; however, such approval is not necessary. Performed By: #### C BC #### [facility] [address] [place] [address] Potassium [Moles/Vol] 4.3 mmol/L Normal 3.5 - 5.3 [facility] Comment on above: Performed By: #### C BC #### [facility] [address] [place] [address] Sodium [Moles/Vol] 140 mmol/L Normal 136 - 145 [facility] Comment on above: Performed By: #### C BC #### [facility] [address] [place] [address] Urea nitrogen [Mass/Vol] 9 mg/dL Normal 6 - 23 [facility] Comment on above: Performed By: #### C BC #### [facility] [address] [place] [address] Renal Function Panelon 09-22 Albumin BCP dye [Mass/Vol] 2.7 g/dL below low threshold 3.4 - 5.0 [facility] Work Phone: Anion gap [Moles/Vol] 10 mmol/L 10 - 20 [facility] Work Phone: Calcium [...] Potassium [Moles/Vol] 4.3 mmol/L 3.5 - 5.3 [facility] 6 [facility] Work Phone: Sodium [Moles/Vol] 140 mmol/L 136 - 145 [facility] 6 I Work Phone: Urea nitrogen [Mass/Vol] 9 mg/dL 6 - 23 [facility] I Work Phone: Renal Function Panel >90 >90 [facility]roen terology[facility] 6 [facility] Work Phone: Comment on above: CALCULATIONS OF IVY MATED GFR ARE PERFORMED USING THE 2020 CKD-EPI STUDY REFIT EQUATION WITHOUT THE RACE VARIABLE FOR THE IDMS-TRACEABLE CREATININE METHODS.https://jasn.asnjournals.org/content/ /ASN.8188221985 UA MICROSCOPICon 09-22-2021 RBC 6 /HPF Abnormal 0-5 [facility] Comment on above: Performed By: #### C BC #### [facility] [address] [place] [address] SQUAMOUS EPITH. CELLS 1 /HPF Normal [facility] Comment on above: Performed By: #### C BC #### [facility] [address] [place] [address] WBC 8 /HPF Abnormal 0-5 [facility] Comment on above: Performed By: #### C BC #### [facility] [address] [place] [address] URINALYSIS WITH CULTURE IF I NDICATEDon 09-22-2021 Appearance (U) CLEAR Normal CLEAR [facility] Comment on above: Performed By: #### U ARFX ####[id number] [place] [address] Bilirubin Ql (U) Negative Normal NEGATIVE [facility] Comment on above: Performed By: #### U ARFX ####[id number] [place] [address] Color (U) MIRANDA Normal STRAW,YELL OW [facility] Comment on above: Performed By: #### U ARFX ####[id number] [place] [address] Glucose Ql (U) Negative Normal NEGATIVE [facility] Comment on above: Performed By: #### U ARFX ####[id number] [place] [address] Hemoglobin Ql (U) Negative Normal NEGATIVE [facility] Comment on above: Performed By: #### U ARFX ####[id number] [place] [address] Ketones Ql (U) 20 (1+) Abnormal NEGATIVE [facility] Comment on above: Performed By: #### U ARFX ####[id number] [place] [address] Leukocyte esterase Test strip Ql (U) Negative Normal NEGATIVE [facility] Comment on above: Performed By: #### U ARFX ####[id number] [place] [address] Nitrite Ql (U) Negative Normal NEGATIVE [facility] Comment on above: Performed By: #### U ARFX ####[id number] [place] [address] pH (U) 5.0 [pH] Normal 5.0 - 8.0 [facility] Comment on above: Performed By: #### U ARFX ####[id number] [place] [address] Protein Ql (U) 30 (1+) Abnormal NEGATIVE [facility] Comment on above: Performed By: #### U ARFX ####[id number] [place] [address] Specific gravity (U) [Rel density] 1.040 High 1.005 - 1.035 [facility] Comment on above: Performed By: #### U ARFX ####[id number] [place] [address] Urobilinogen (U) [Mass/Vol] 2.0 mg/dL High 0.0 - 1.9 [facility] Comment on above: Result Comment: Due [...] positive urobilinogen. Performed By: #### U ARFX ####[id number] [place] [address] Lab Specimen Source Normal [facility] Comment on above: Performed By: #### U ARFX ####[id number] [place] [address] Performed By: #### C BC #### [facility] [address] [place] [address] Color (U) MIRANDA See Below [facility]astroen [facility]ology-[facility] [...] Protein (U) [Mass/Vol] 30 (1+) Abnormal NEGATIVE [facility] I Work Phone: RBC (U) [#/Vol] Negative NEGATIVE [facility] en [facility] 6 I Work Phone: Specific gravity [...] CULTURE IF INDICATED CLEAR CLEAR [facility] 6 I Work Phone: URINE CULTURE,BACTERIALon URINE CULTURE,BACTERIAL PATIENT: Fay LEE LOCATION: [place] [address] BILL#: [id number] : 71 AGE: SEX: F ORDERED BY: AMBROCIO IZAGUIRRE SOURCE: URINE COLLECTED: 09/22/21 12:59 ANTIBIOTICS AT [facility].: RECEIVED : 09/22/21 14:59 SITE: R E S U L T S URINE CULTURE,BACTERIAL FINAL 09/23/21 09:04 NO SIGNIFICANT GROWTH. Normal [facility] Comment on above: Performed By: #### C BC #### [facility] [address] [place] [address] Urinalysis, Microscopicon Urinalysis, Microscopic 1 {/HPF} [facility] I Work Phone: Urinalysis, Microscopic 6 {/HPF} Abnormal 0-5 [facility] I Work Phone: Urinalysis, Microscopic 8 {/HPF} Abnormal 0-5 [facility] I Work Phone: Comment on above: SOURCE: CBCon 09-21-2021 Erythrocyte distribution width (RBC) [Ratio] 13.1 % Normal 11.5 - 14.5 [facility] Comment on above: Performed By: #### R ENAL #### [facility] [address] [place] [address] Hematocrit (Bld) [Volume fraction] 34.5 % Low 36.0 - 46.0 [facility] Comment on above: Performed By: #### R ENAL #### [facility] [address] [place] [address] Hemoglobin (Bld) [Mass/Vol] 11.4 g/dL Low 12.0 - 16.0 [facility] Comment on above: Performed By: #### R ENAL #### [facility] [address] [place] [address] MCHC (RBC) [Mass/Vol] 33.0 g/dL Normal 32.0 - 36.0 [facility] Comment on above: Performed By: #### R ENAL #### [facility] [address] [place] [address] MCV (RBC) [Entitic vol] 91 fL Normal 80 - 100 [facility] Comment on above: Performed By: #### R ENAL #### [facility] [address] [place] [address] NUCLEATED RBC 0.0 /100 WBC Normal 0.0-0.0 [facility] Comment on above: Performed By: #### R ENAL #### [facility] [address] [place] [address] Platelets (Bld) [#/Vol] 269 10*3/uL Normal 150 - 450 [facility] Comment on above: Performed By: #### R ENAL #### [facility] [address] [place] [address] RBC 3.81 x10E12/L Low 4.00 - 5.20 [facility] Comment on above: Performed By: #### R ENAL #### [facility] [address] [place] [address] WBC (Bld) [#/Vol] 14.6 10*3/uL High 4.4 - 11.3 [facility] Comment on above: Performed By: #### R ENAL #### [facility] [address] [place] [address] Erythrocyte distribution width (RBC) [Ratio] 13.2 % Normal 11.5 - 14.5 [facility] Comment on above: Performed By: #### R ENAL #### [facility] [address] [place] [address] Hematocrit (Bld) [Volume fraction] 35.8 % Low 36.0 - 46.0 [facility] Comment on above: Performed By: #### R ENAL #### [facility] [address] [place] [address] Hemoglobin (Bld) [Mass/Vol] 11.9 g/dL Low 12.0 - 16.0 [facility] Comment on above: Performed By: #### R ENAL #### [facility] [address] [place] [address] MCHC (RBC) [Mass/Vol] 33.2 g/dL Normal 32.0 - 36.0 [facility] Comment on above: Performed By: #### R ENAL #### [facility] [address] [place] [address] MCV (RBC) [Entitic vol] 91 fL Normal 80 - 100 U [facility] Comment on above: Performed By: #### R ENAL #### [facility] [address] [place] [address] NUCLEATED RBC 0.0 /100 WBC Normal 0.0-0.0 [facility] Comment on above: Performed By: #### R ENAL #### [facility] [address] [place] [address] Platelets (Bld) [#/Vol] 215 10*3/uL Normal 150 - 450 [facility] Comment on above: Performed By: #### R ENAL #### [facility] [address] [place] [address] RBC 3.93 x10E12/L Low 4.00 - 5.20 [facility] Comment on above: Performed By: #### R ENAL #### [place] [address] [place] [address] WBC (Bld) [#/Vol] 14.8 10*3/uL High 4.4 - 11.3 [facility] Comment on above: Performed By: #### R ENAL #### [facility] [address] [place] [address] Daily Progress Note-Neurosjudy stearns 09-21-2021 Daily Progress Note-Neurosurgery Service: Neurosurgery Subjective Data: MORALES LEE is a 46 year old Female who is Hospital Day # 7 and POD #3 for 1. Exploration of spinal fusion;2. Reduction of L4/5 dislocation;2. L5-pelvis instrumented fusion with posterolateral arthrodesis;4. Extension of instrumentation with multiple kwame construct and side connectors. Objective Data: Objective Information: T PRBPSpO2 [id number]/8495% Date/Time09/20 15: 4: 4: 4: 4:00 Range(36.9C [...] ----- Mn/Dy/Year TimeIntakeOutputNet Sep 19, 2021 10:00 [id number] Sep 19, 2021 6:00 [id number] The Intake and Output Totals for the last 24 hours are: [facility] [id number] Physical Exam by System: Neurological: A&Ox3 RUE [...] Chronic pain recs- intra-op ketamine, meloxicam post-op, ACCESS CONTROL OFFICER until good PT eval, Suboxone as OP [...] the following: I personally evaluated the patient [id number] Comments/ Additional Findings The patient has been [...] inborn buckling of the ligamentum flavum from jain of for significant kyphotic malalignment spine I [...] MRI was performed and with the patient yard associate the medical necessity of considering lumbar laminectomy [...] without removing (more content not included)... Normal [facility] - Blood bankon ABO group Nom (Bld) O [facility] wilbert carcamo-[facility] Work Phone: Blood group antibody investigation (P/RBC) [Interp] Anti-E [facility]Gastroen [facility]ology-[facility] Work Phone: Blood group antibody screen Ql Positive [facility]astro[facility] Work Phone: Rh immune globulin screen (Bld) [Interp] Positive [facility]-Gastroe n terology-[facility] 6 [facility] Work Phone: ABO group Nom (Bld) Canceled [facility] stroen terology-[facility] 6 [facility] Work Phone: Comment on above: CALLED MERA SPEARS, 09/21/2021 05:08 Blood group antibody screen Ql Canceled [facility] Work Phone: Comment on above: CALLED MERA SPEARS, 09/21/2021 05:08 Rh immune globulin screen (Bld) [Interp] Canceled MG-Gastroe n terology-[facility] lwell 6 I Work Phone: Comment [...] MCHC (RBC) [Mass/Vol] 33.0 g/dL See Below [facility]- Gastroen [facility]ology-[facility] 6 I Work Phone: Comment on above: Reference Range: 32. 0 - 36.0 MCV (RBC) [Entitic vol] 91 fL 80 - 100 M [facility]astro[facility] terology-[facility] 6 I Work Phone: Platelets [...] [facility]astroen terology-[facility] ell 6 I Work Phone: Erythrocyte distribution width (RBC) [Ratio] 13.2 % See Below [facility]-Gastroen terology-Rosendo ell 6 [...] MCHC (RBC) [Mass/Vol] 33.2 g/dL See Below [facility]- [facility] terology-[facility] 6 I Work Phone: Comment on above: Reference Range: 32. 0 - 36.0 MCV (RBC) [Entitic vol] 91 fL 80 - 100 M [facility]astro[facility]ology-[facility] 6 I Work Phone: Platelets [...] lumbar spine September 18, 2021 ACCESSION NUMBER(S): [id number]; [id number] ORDERING CLINICIAN: DEVANTE NUNEZ TECHNIQUE: Sagittal axial [...] Electronically signed by: NATALIA WALL DO Normal [facility] NR MRI T-SPINE WOon 09-21-19 NR MRI T-SPINE WO Patient Name: MORALES LEE STUDY: MRI T-SPINE WO; MRI L-SPINE WO; 09/20/2021 10:40 pm; 09/20/2021 10:42 pm INDICATION: postop foot weakness, Lie Flat: Yes, Pre Med: No . COMPARISON: MRI December 24, [address] of the lumbar spine September 18, 2021 ACCESSION NUMBER(S): [id number]; [id number] ORDERING CLINICIAN: DEVANTE NUNEZ TECHNIQUE: Sagittal axial [...] Electronically signed by: NATALIA WALL DO Normal [facility] No Panel Informationon 09-21 0.0 {/100_WBC} [...] Preop Checklist Preop Checklist: Preop Checklist: Arrival [id number] Arrival Time11:00 Procedure Typere-exploration of spine Temperature C36.2 degrees C Temperature F97.1 degrees F Heart Rate91 beats per minute Respiratory Rate18 breath per minute Blood Pressure Gbsxsnvh081 mm/Hg Blood Pressure Zkuubtpmu93 mm/Hg COVID 19 Results in Last 7 [...] 21-Sep-2021 11:17 by Linh Buchanan (RN) Normal [facility] REQUEST-LEUKOREDUCED RED ANJU LSon 09-21-2021 REQUEST-LEUKOREDUCED RED CELLS ORDER RECD Normal [facility] Comment on above: Performed By: #### A FPA3 #### [facility] [address] [place] [address] TYPE + SCREENon 09-21-2021 ABO TYPE O Normal [facility] Comment on above: Performed By: #### A FPA3 #### [facility] [address] [place] [address] RH TYPE Positive Normal [facility] Comment on above: Performed By: #### A FPA3 #### [facility] [address] [place] [address] ABO TYPE Canceled Normal [facility] Comment on above: Order Comment: VENECIA ESPINO, 09/21/2021 05:08TEST TYPE + SCREEN WAS CANCELLED, 09/21/2021 05:06 NO PHLEB ID ON TUBE. Result Comment: EULA ESPINO, 09/21/2021 05:08 Performed By: #### A FPA3 #### [facility] [address] [place] [address] RH TYPE Canceled Normal [facility] Comment on above: Order Comment: VENECIA ESPINO, 09/21/2021 05:08TEST TYPE + SCREEN WAS CANCELLED, 09/21/2021 05:06 NO PHLEB ID ON TUBE. Result Comment: CALL ED RN AFSANEH ESPINO, 09/21/2021 05:08 Performed By: #### A FPA3 #### [facility] [address] [place] [address] CBCon 09-20-2021 Erythrocyte distribution width (RBC) [Ratio] 13.2 % Normal 11.5 - 14.5 [facility] Comment on above: Performed By: #### C BC #### [facility] [address] [place] [address] Hematocrit (Bld) [Volume fraction] 30.8 % Low 36.0 - 46.0 [facility] Comment on above: Performed By: #### C BC #### [facility] [address] [place] [address] Hemoglobin (Bld) [Mass/Vol] 9.8 g/dL Low 12.0 - 16.0 [facility] Comment on above: Performed By: #### C BC #### [facility] [address] [place] [address] MCHC (RBC) [Mass/Vol] 31.8 g/dL Low 32.0 - 36.0 [facility] Comment on above: Performed By: #### C BC #### [facility] [address] [place] [address] MCV (RBC) [Entitic vol] 93 fL Normal 80 - 100 [facility] Comment on above: Performed By: #### C BC #### [facility] [address] [place] [address] NUCLEATED RBC 0.0 /100 WBC Normal 0.0-0.0 [facility] Comment on above: Performed By: #### C BC #### [facility] [address] [place] [address] Platelets (Bld) [#/Vol] 224 10*3/uL Normal 150 - 450 [facility] Comment on above: Performed By: #### C BC #### [facility] [address] [place] [address] RBC 3.32 x10E12/L Low 4.00 - 5.20 [facility] Comment on above: Performed By: #### C BC #### [facility] [address] [place] [address] WBC (Bld) [#/Vol] 12.1 10*3/uL High 4.4 - 11.3 [facility] Comment on above: Performed By: #### C BC #### [facility] [address] [place] [address] Daily Progress Note-Neurosjudy stearns 09-20-2021 Daily Progress Note-Neurosurgery Service: Neurosurgery Subjective Data: MORALES LEE is a 46 year old Female who is Hospital Day # 6 and POD #2 for 1. Exploration of spinal fusion;2. Reduction of L4/5 dislocation;2. L5-pelvis instrumented fusion with posterolateral arthrodesis;4. Extension of instrumentation with multiple kwame construct and side connectors. Objective Data: Objective Information: T PRBPSpO2 Value36.4630313/5095% Date/Time09/19 16: 1: 16: 1:341 1:34 Range(36.7C - 36.7C ) (84 - 110 ) (18 - 18 ) (82 - 118 )/ (50 - 97 ) (94% - 97% ) As of 19-Sep-2021 08:00:00, patient is on 2 L/min of oxygen via nasal cannula. ---- Intake and Output ----- Mn/Dy/Year TimeInt[facility]Out[facility] Sep 18, 2021 10:00 [id number] The Intake and Output Totals for the [...] Cl- BUN / 139 100 9 / ------- Glucose -- 82 K+ HCO3- Creat \ 4.5 26 [...] chronic pain recs- intra-op ketamine, meloxicam post-op, ACCESS CONTROL OFFICER until good PT eval, Suboxone as OP [...] Updated: 21-Sep-2021 11:28 by Perez Carlisle) Normal [facility] - Hematology and Cell countson [...] [Entitic vol] 93 fL 80 - 100 M [facility] 6 I Work Phone: Platelets [...] 20-Sep-2021 12:25 by Carole Carlos (OT) [facility] PT Evaluation v2-attemptedon 09-20-2021 PT Evaluation v2-attempted Rehab: Info: Mode of Treatmentattempted Time IN12:00 Evaluation Not PerformedPer RN pt not appropriate for therapy, pt continues to have low BP and plan to receive blood, will hold and reattempt as appropriate Electronic Signatures: Kaykay Yoo (PT) (Signed 20-Sep-2021 12:42) Authored: Info Last Updated: 20-Sep-2021 12:42 by Kaykay Yoo (PT) Normal [facility] REQUEST-LEUKOREDUCED RED ANJU LSon 09-20-2021 REQUEST-LEUKOREDUCED RED CELLS ORDER RECD Normal [facility] Comment on above: Performed By: #### R ENAL #### [facility] [address] [place] [address] CBCon 09-19-2021 Erythrocyte distribution width (RBC) [Ratio] 12.4 % Normal 11.5 - 14.5 [facility] Comment on above: Performed By: #### R ENAL #### [facility] [address] [place] [address] Hematocrit (Bld) [Volume fraction] 38.3 % Normal 36.0 - 46.0 [facility] Comment on above: Performed By: #### R ENAL #### [facility] [address] [place] [address] Hemoglobin (Bld) [Mass/Vol] 13.4 g/dL Normal 12.0 - 16.0 [facility] Comment on above: Performed By: #### R ENAL #### [facility] [address] [place] [address] MCHC (RBC) [Mass/Vol] 35.0 g/dL Normal 32.0 - 36.0 [facility] Comment on above: Performed By: #### R ENAL #### [facility] [address] [place] [address] MCV (RBC) [Entitic vol] 85 fL Normal 80 - 100 [facility] Comment on above: Performed By: #### R ENAL #### [facility] [address] [place] [address] NUCLEATED RBC 0.0 /100 WBC Normal 0.0-0.0 [facility] Comment on above: Performed By: #### R ENAL #### [facility] [address] [place] [address] Platelets (Bld) [#/Vol] 326 10*3/uL Normal 150 - 450 [facility] Comment on above: Performed By: #### R ENAL #### [facility] [address] [place] [address] RBC 4.51 x10E12/L Normal 4.00 - 5.20 [facility] Comment on above: Performed By: #### R ENAL #### [facility] [address] [place] [address] WBC (Bld) [#/Vol] 20.5 10*3/uL High 4.4 - 11.3 [facility] Comment on above: Performed By: #### R ENAL #### [facility] [address] [place] [address] CBC AND DIFFERENTIALon 09-19 % AUTOMATED IMMATURE GRAN 0.6 % Normal 0.0 - 0.9 [facility] Comment on above: Result Comment: Jaleesa ture Granulocyte Count (IG) includes promyelocytes, myelocytes and metamyelocytes but does not include bands. Percent differential counts (%) should be interpreted in the context of the absolute cell counts (cells/L). Performed By: #### V FPA3 #### [facility] [address] [place] [address] Basophils (Bld) [#/Vol] 0.03 10*3/uL Normal 0.00 - 0.10 [facility] Comment on above: Performed By: #### V FPA3 #### [facility] [address] [place] [address] Basophils/100 WBC (Bld) 0.1 % Normal 0.0 - 2.0 [facility] Comment on above: Performed By: #### V FPA3 #### [facility] [address] [place] [address] Eosinophils (Bld) [#/Vol] 0.01 10*3/uL Normal 0.00 - 0.70 [facility] Comment on above: Performed By: #### V FPA3 #### [facility] [address] [place] [address] Eosinophils/100 WBC (Bld) 0.0 % Normal 0.0 - 6.0 [facility] Comment on above: Performed By: #### V FPA3 #### [facility] [address] [place] [address] Erythrocyte distribution width (RBC) [Ratio] 12.9 % Normal 11.5 - 14.5 [facility] Comment on above: Performed By: #### V FPA3 #### [facility] [address] [place] [address] Hematocrit (Bld) [Volume fraction] 38.3 % Normal 36.0 - 46.0 [facility] Comment on above: Performed By: #### V FPA3 #### [facility] [address] [place] [address] Hemoglobin (Bld) [Mass/Vol] 12.7 g/dL Normal 12.0 - 16.0 [facility] Comment on above: Performed By: #### V FPA3 #### [facility] [address] [place] [address] Lymphocytes (Bld) [#/Vol] 2.89 10*3/uL Normal 1.20 - 4.80 [facility] Comment on above: Performed By: #### V FPA3 #### [facility] [address] [place] [address] Lymphocytes/100 WBC (Bld) 13.5 % Normal 13.0 - 44.0 [facility] Comment on above: Performed By: #### V FPA3 #### [facility] [address] [place] [address] MCHC (RBC) [Mass/Vol] 33.2 g/dL Normal 32.0 - 36.0 [facility] Comment on above: Performed By: #### V FPA3 #### [facility] [address] [place] [address] MCV (RBC) [Entitic vol] 89 fL Normal 80 - 100 [facility] Comment on above: Performed By: #### V FPA3 #### [facility] [address] [place] [address] Monocytes (Bld) [#/Vol] 1.23 10*3/uL High 0.10 - 1.00 [facility] Comment on above: Performed By: #### V FPA3 #### [facility] [address] [place] [address] Monocytes/100 WBC (Bld) 5.7 % Normal 2.0 - 10.0 [facility] Comment on above: Performed By: #### V FPA3 #### [facility] [address] [place] [address] Neutrophils (Bld) [#/Vol] 17.16 10*3/uL High 1.20 - 7.70 [facility] Comment on above: Performed By: #### V FPA3 #### [facility] [address] [place] [address] Neutrophils/100 WBC (Bld) 80.1 % Normal 40.0 - 80.0 [facility] Comment on above: Performed By: #### V FPA3 #### [facility] [address] [place] [address] NUCLEATED RBC 0.0 /100 WBC Normal 0.0-0.0 [facility] Comment on above: Performed By: #### V FPA3 #### [facility] [address] [place] [address] Platelets (Bld) [#/Vol] 401 10*3/uL Normal 150 - 450 [facility] Comment on above: Performed By: #### V FPA3 #### [facility] [address] [place] [address] RBC 4.28 x10E12/L Normal 4.00 - 5.20 [facility] Comment on above: Performed By: #### V FPA3 #### [facility] [address] [place] [address] WBC (Bld) [#/Vol] 21.5 10*3/uL High 4.4 - 11.3 [facility] Comment on above: Performed By: #### V FPA3 #### [facility] [address] [place] [address] COAGULATION SCREENon 022 aPTT Coag (Bld) [Time] 29 s Normal 26 - 39 [facility] Comment on above: Result Comment: Note new reference range as of 08/04/2021 at 10:00am. Performed By: #### R ENAL #### [facility] [address] [place] [address] PT Coag (PPP) [Time] 11.5 s Normal 9.8 - 13.4 [facility] Comment on above: Result Comment: Note new reference range as of 08/04/2021 at 10:00am. Performed By: #### R ENAL #### [facility] [address] [place] [address] PT, INR 1.0 Normal 0.9 - 1.1 [facility] Comment on above: Performed By: #### R ENAL #### [facility] [address] [place] [address] Complete Blood Count + Diffe vidya 09-19-2021 Basophils/100 WBC (Bld) 0.1 % 0.0 - 2.0 [facility] I Work Phone: Erythrocyte [...] MCHC (RBC) [Mass/Vol] 33.2 g/dL See Below [facility] 6 I Work Phone: Comment on above: Reference Range: 32. 0 - 36.0 MCV (RBC) [Entitic vol] 89 fL 80 - 100 [facility] 6 I Work Phone: Monocytes/100 WBC (Bld) 5.7 % 2.0 - 10.0 [facility] 6 I Work Phone: Neutrophils/100 [...] 0.6 % 0.0 - 0.9 [facility] 6 I Work Phone: Comment on [...] + Differential 2.89 {x10E9/L} See Below [facility] 6 I Work Phone: Comment on [...] connectors. Objective Data: Objective Information: T PRBPSpO2 Value36.93120478/8596% Date/Time09/18 17: 17: 17: 17: 17:40 Range(36.4C [...] ----- Mn/Dy/Year TimeIntakeOutputNet Sep 17, 2021 10:00 [id number] The Intake and Output Totals for the last 24 hours are: IntakeOutputNet [id number] Physical Exam by System: Neurological: A&Ox3 RUE D5, B5, T5, HG5, IO5 LUE D4+, B4+, T4+, HG4+, IO5 RLE HF 4+, KE4+, PF5, DF5 (pain limited) LLE HF 4-, KE4-, PF4, DF5 Recent Lab Results: Results: Recent Arterial Blood Gas Results 09/18/2021 11:48 [id number] 24 h range: ( 219 - 224 ) pH7.44 24 h range: ( 7.44 - 7.45 ) iTL859 24 h range: ( 37 - 40 ) QH5190 24 h range: ( 100 - 100 ) Base Excess2.8 24 h range: ( 1.8 - 2.8 ) Tolxqtmxtom88.2 24 h range: ( 25.7 - 27.2 [...] the note. I personally evaluated the patient [id number] Comments/ Additional Findings Patients postoperative CT scan [...] Assessment an (more content not included)... Normal [facility] - Coagulationon 0 09-19-2021 aPTT Coag (PPP) [Time] 29 s 26 - 39 [facility] 6 I Work [...] [Mass/Vol] 1.59 mg/dL Low 1.60 - 2.40 [facility] Comment on above: Performed By: #### R ENAL #### [facility] [address] [place] [address] PT Evaluation v2-attemptedon 09-19-2021 PT Evaluation v2-attempted Rehab: Info: Mode of Treatmentattempted Time IN11:37 Time OUT11:50 Total Treatment [id number] Evaluation Not PerformedHistory obtained, BP assessed in supine 79/54mmHg, RN notified and redone with 71/51mmHg, will hold PT eval at this time and reattempt as medically appropriate Electronic Signatures: Kaykay Yoo (PT) (Signed 19-Sep-2021 12:14) Authored: Info Last Updated: 19-Sep-2021 12:14 by Kaykay Yoo (PT) Normal [facility] RENAL FUNCTION PANELon 09-19 Albumin [Mass/Vol] 3.4 g/dL Normal 3.4 - 5.0 [facility] Comment on above: Performed By: #### A FPA3 #### [facility] [address] [place] [address] Anion gap [Moles/Vol] 18 mmol/L Normal 10 - 20 [facility] Comment on above: Performed By: #### A FPA3 #### [facility] [address] [place] [address] Calcium [Mass/Vol] 8.3 mg/dL Low 8.6 - 10.6 [facility] Comment on above: Performed By: #### A FPA3 #### [facility] [address] [place] [address] Chloride [Moles/Vol] 100 mmol/L Normal 98 - 107 [facility] Comment on above: Performed By: #### A FPA3 #### [facility] [address] [place] [address] Creatinine [Mass/Vol] 0.60 mg/dL Normal 0.50 - 1.05 [facility] Comment on above: Performed By: #### A FPA3 #### [facility] [address] [place] [address] eGFR FEMALE >90 Normal >90 [facility] Comment on above: Result Comment: CALC ULATIONS OF ESTIMATED GFR ARE PERFORMED USING THE 2020 CKD-EPI STUDY REFIT EQUATION WITHOUT THE RACE VARIABLE FOR THE IDMS-TRACEABLE CREATININE METHODS. https://jasn.asnjournals.org/content/early//ASN.486 5994524 Performed By: #### A FPA3 #### [facility] [address] [place] [address] Glucose [Mass/Vol] 82 mg/dL Normal 74 - 99 [facility] Comment on above: Performed By: #### A FPA3 #### [facility] [address] [place] [address] HCO3 (Bld) [Moles/Vol] 26 mmol/L Normal 21 - 32 [facility] Comment on above: Performed By: #### A FPA3 #### [facility] [address] [place] [address] Phosphate [Mass/Vol] 2.8 mg/dL Normal 2.5 - 4.9 [facility] Comment on above: Result Comment: The performance characteristics of phosphorus testing in heparinized plasma have been validated by the individual laboratory site where testing is performed. Testing on heparinized plasma is not approved by the FDA; however, such approval is not necessary. Performed By: #### A FPA3 #### [facility] [address] [place] [address] Potassium [Moles/Vol] 4.5 mmol/L Normal 3.5 - 5.3 [facility] Comment on above: Performed By: #### A FPA3 #### [facility] [address] [place] [address] Sodium [Moles/Vol] 139 mmol/L Normal 136 - 145 [facility] Comment on above: Performed By: #### A FPA3 #### [facility] [address] [place] [address] Urea nitrogen [Mass/Vol] 9 mg/dL Normal 6 - 23 [facility] Comment on above: Performed By: #### A FPA3 #### [facility] [address] [place] [address] Albumin [Mass/Vol] 3.6 g/dL Normal 3.4 - 5.0 [facility] Comment on above: Performed By: #### R ENAL #### [facility] [address] [place] [address] Anion gap [Moles/Vol] 13 mmol/L Normal 10 - 20 [facility] Comment on above: Performed By: #### R ENAL #### [facility] [address] [place] [address] Calcium [Mass/Vol] 8.9 mg/dL Normal 8.6 - 10.6 [facility] Comment on above: Performed By: #### R ENAL #### [facility] [address] [place] [address] Chloride [Moles/Vol] 100 mmol/L Normal 98 - 107 [facility] Comment on above: Performed By: #### R ENAL #### [facility] [address] [place] [address] Creatinine [Mass/Vol] 0.51 mg/dL Normal 0.50 - 1.05 [facility] Comment on above: Performed By: #### R ENAL #### [facility] [address] [place] [address] eGFR FEMALE >90 Normal >90 [facility] Comment on above: Result Comment: CALC ULATIONS OF ESTIMATED GFR ARE PERFORMED USING THE 2020 CKD-EPI STUDY REFIT EQUATION WITHOUT THE RACE VARIABLE FOR THE IDMS-TRACEABLE CREATININE METHODS. https://jasn.asnjournals.org/content//ASN.978 0389752 Performed By: #### R ENAL #### [facility] [address] [place] [address] Glucose [Mass/Vol] 123 mg/dL High 74 - 99 [facility] Comment on above: Performed By: #### R ENAL #### [facility] [address] [place] [address] HCO3 (Bld) [Moles/Vol] 28 mmol/L Normal 21 - 32 [facility] Comment on above: Performed By: #### R ENAL #### [facility] [address] [place] [address] Phosphate [Mass/Vol] 2.8 mg/dL Normal 2.5 - 4.9 [facility] Comment on above: Result Comment: The performance characteristics of phosphorus testing in heparinized plasma have been validated by the individual laboratory site where testing is performed. Testing on heparinized plasma is not approved by the FDA; however, such approval is not necessary. Performed By: #### R ENAL #### [facility] [address] [place] [address] Potassium [Moles/Vol] 4.3 mmol/L Normal 3.5 - 5.3 [facility] Comment on above: Performed By: #### R ENAL #### [facility] [address] [place] [address] Sodium [Moles/Vol] 137 mmol/L Normal 136 - 145 [facility] Comment on above: Performed By: #### R ENAL #### [facility] [address] [place] [address] Urea nitrogen [Mass/Vol] 8 mg/dL Normal 6 - 23 [facility] Comment on above: Performed By: #### R ENAL #### [facility] [address] [place] [address] Renal Function Panelon 09-19 Albumin BCP dye [Mass/Vol] 3.4 g/dL 3.4 - 5.0 [facility] 6 [facility] Work Phone: Anion gap [Moles/Vol] 18 mmol/L 10 - 20 [facility] I Work Phone: Calcium [Mass/Vol] 8.3 mg/dL below low threshold 8.6 - 10.6 [facility] 6 I Work Phone: Chloride [Moles/Vol] 100 mmol/L 98 - 107 [facility]roen terology[facility] [facility] I Work Phone: CO2 [Moles/Vol] 26 mmol/L 21 - 32 [facility] [facility] [facility] I Work Phone: Creatinine [Mass/Vol] 0.60 mg/dL See Below [facility] [facility] [facility] I Work Phone: Comment on above: Reference Range: 0.5 0 - 1.05 Glucose [Mass/Vol] 82 mg/dL 74 - 99 [facility] [facility] [facility] I Work Phone: Phosphate [Mass/Vol] [...] Potassium [Moles/Vol] 4.5 mmol/L 3.5 - 5.3 [facility] [facility] [facility] I Work Phone: Sodium [...] THE RACE VARIABLE FOR THE IDMS-TRACEABLE CREATININE METHODS.https://jasn.asnjournals.org/content/ [email or web address] ANTIBODY IDENT.on 09-18-2021 ANTIBODY IDENT. Anti-E Normal [facility] Comment on above: Performed By: #### A FPA3 #### [facility] [id number] [place] [address] ARTERIAL FULL PANELon 2021 Anion gap [Moles/Vol] 5 mmol/L Low 10 - 25 [facility] Comment on above: Performed By: #### A FPA3 ####[id number] [place] [address] BASE EXCESS-BLOOD 2.8 mmol/L Normal -2.0 - 3.0 [facility] Comment on above: Performed By: #### A FPA3 ####[id number] [place] [address] BICARB, CALCULATED 27.2 mmol/L High 22.0 - 26.0 [facility] Comment on above: Performed By: #### A FPA3 ####[id number] [place] [address] CALCIUM,IONIZED 1.20 mmol/L Normal 1.10 - 1.33 [facility] Comment on above: Performed By: #### A FPA3 ####[id number] [place] [address] Chloride [Moles/Vol] 106 mmol/L Normal 98 - 107 [facility] Comment on above: Performed By: #### A FPA3 ####[id number] [place] [address] Glucose [Mass/Vol] 149 mg/dL High 74 - 99 [facility] Comment on above: Performed By: #### A FPA3 ####[id number] [place] [address] Hematocrit (Bld) [Volume fraction] 38.0 % Normal 36.0 - 46.0 [facility] Comment on above: Performed By: #### A FPA3 ####[id number] [place] [address] HGB,CALCULATED 12.9 g/dL Normal 12.0 - 16.0 [facility] Comment on above: Performed By: #### A FPA3 ####[id number] [place] [address] Lactate [Moles/Vol] 0.9 mmol/L Normal 0.4 - 2.0 [facility] Comment on above: Performed By: #### A FPA3 ####[id number] [place] [address] Oxygen (Bld) [Partial pressure] 219 mm[Hg] High 85 - 95 [facility] Comment on above: Performed By: #### A FPA3 ####[id number] [place] [address] PATIENT TEMPERATURE 37.0 degrees C Normal [facility] Comment on above: Result Comment: NOTE : PATIENT RESULTS ARE NOT CORRECTED FOR TEMPERATURE. Performed By: #### A FPA3 ####[id number] [place] [address] PCO2 40 mmHg Normal 38 - 42 [facility] Comment on above: Performed By: #### A FPA3 ####[id number] [place] [address] pH (Bld) 7.44 [pH] High 7.38 - 7.42 [facility] Comment on above: Performed By: #### A FPA3 ####[id number] [place] [address] Potassium [Moles/Vol] 4.4 mmol/L Normal 3.5 - 5.3 [facility] Comment on above: Performed By: #### A FPA3 ####[id number] [place] [address] SO2 100 % Normal 94 - 100 [facility] Comment on above: Performed By: #### A FPA3 ####[id number] [place] [address] Sodium [Moles/Vol] 134 mmol/L Low 136 - 145 [facility] Comment on above: Performed By: #### A FPA3 ####[id number] [place] [address] Anion gap [Moles/Vol] 7 mmol/L Low 10 - 25 [facility] Comment on above: Performed By: #### A FPA3 #### [facility] [address] [place] [address] BASE EXCESS-BLOOD 1.8 mmol/L Normal -2.0 - 3.0 [facility] Comment on above: Performed By: #### A FPA3 #### [facility] [address] [place] [address] BICARB, CALCULATED 25.7 mmol/L Normal 22.0 - 26.0 [facility] Comment on above: Performed By: #### A FPA3 #### [facility] [address] [place] [address] CALCIUM,IONIZED 1.20 mmol/L Normal 1.10 - 1.33 [facility] Comment on above: Performed By: #### A FPA3 #### [facility] [address] [place] [address] Chloride [Moles/Vol] 105 mmol/L Normal 98 - 107 [facility] Comment on above: Performed By: #### A FPA3 #### [facility] [address] [place] [address] Glucose [Mass/Vol] 174 mg/dL High 74 - 99 [facility] Comment on above: Performed By: #### A FPA3 #### [facility] [address] [place] [address] Hematocrit (Bld) [Volume fraction] 37.0 % Normal 36.0 - 46.0 [facility] Comment on above: Performed By: #### A FPA3 #### [facility] [address] [place] [address] HGB,CALCULATED 12.6 g/dL Normal 12.0 - 16.0 [facility] Comment on above: Performed By: #### A FPA3 #### [facility] [address] [place] [address] Lactate [Moles/Vol] 1.1 mmol/L Normal 0.4 - 2.0 [facility] Comment on above: Performed By: #### A FPA3 #### [facility] [address] [place] [address] Oxygen (Bld) [Partial pressure] 224 mm[Hg] High 85 - 95 [facility] Comment on above: Performed By: #### A FPA3 #### [facility] [address] [place] [address] PATIENT TEMPERATURE 37.0 degrees C Normal [facility] Comment on above: Result Comment: NOTE : PATIENT RESULTS ARE NOT CORRECTED FOR TEMPERATURE. Performed By: #### A FPA3 #### [facility] [address] [place] [address] PCO2 37 mmHg Low 38 - 42 [facility] Comment on above: Performed By: #### A FPA3 #### [facility] [address] [place] [address] pH (Bld) 7.45 [pH] High 7.38 - 7.42 [facility] Comment on above: Performed By: #### A FPA3 #### [facility] [address] [place] [address] Potassium [Moles/Vol] 3.9 mmol/L Normal 3.5 - 5.3 [facility] Comment on above: Performed By: #### A FPA3 #### [facility] [address] [place] [address] SO2 100 % Normal 94 - 100 [facility] Comment on above: Performed By: #### A FPA3 #### [facility] [address] [place] [address] Sodium [Moles/Vol] 134 mmol/L Low 136 - 145 [facility] Comment on above: Performed By: #### A FPA3 #### [facility] [address] [place] [address] CT L Spine without Contrasto n 09-18-2021 CT Lumbar spine limited WO contrast Normal [facility] Work Phone: Daily Progress Note-Anesthes iologyon 09-18-2021 Daily Progress Note-Anesthesiology Service: Anesthesiology Subjective Data: OMRALES LEE is a 46 year old Female who is Hospital Day # 4 and POD #0 for 1. Exploration of spinal fusion;2. Reduction of L4/5 dislocation;2. L5-pelvis instrumented fusion with posterolateral arthrodesis;4. Extension of instrumentation with multiple kwame construct and side connectors. Objective Data: Objective Information: T PRBPSpO2 [id number]/4391% Date/Time09/18 6: 5: 5: 5: 5:56 Range(37C [...] Recent Arterial Blood Gas Results 09/18/2021 11:48 [id number] 24 h range: ( 219 - 224 ) pH7.44 24 h range: ( 7.44 - 7.45 ) uGY195 24 h range: ( 37 - 40 ) SK7283 24 h range: ( 100 - 100 ) Base Excess2.8 24 h range: ( 1.8 - 2.8 ) Goffrbklipg49.2 24 h range: ( 25.7 - 27.2 ) Assessment and Plan: Code Status: Code StatusFull Code Electronic Signatures: Bryan Mora) (Signed 18-Sep-2021 14:47) Authored: Service, Subjective Data, Objective Data, Assessment and Plan, Note Completion Last Updated: 18-Sep-2021 14:47 by Bryan Mora) Normal [facility] Daily Progress Note-Neurosur jinny 09-18-2021 Daily Progress Note-Neurosurgery Service: Neurosurgery Subjective Data: MORALES LEE is a 46 year old Female who is Hospital Day # 4. Objective Data: Objective Information: T PRBPSpO2 [id number]/4391% Date/Time1/14 6:041/14 5:56114 5:56114 5:561/14 5:56 Range(36.6C - 37C ) (71 - 89 ) (11 - 19 ) (80 - 108 )/ (41 - 90 ) (90% - 100% ) As of 17-Sep-2021 12:00:00, patient is on 2 L/min of oxygen via nasal cannula. Highest temp of 37 C was recorded at 09/17 16:00 Pain reported at 09/17 22:05: 8 = Severe ---- Intake and Output ----- Mn/Dy/[facility] Sep 17, 2021 10:00 [id number] Sep 17, 2021 2:00 [id number] The Intake and Output Totals for the [...] Cl- BUN / 140 101 10 / ------- Glucose -- 88 K+ HCO3- Creat \ 3.7 29 [...] the note. I personally evaluated the patient [id number] Electronic Signatures: Fidel Maciel (Resident)) (Signed 18-Sep-2021 06:55) Authored: Service, Subjective Data, Objective Data, Assessment and Plan, Note Completion Lex Frederick) (Signed 19-Sep-2021 10:18) Authored: Note Completion Co-Signer: Service, Subjective Data, Objective Data, Assessment and Plan, Note Completion Last Updated: 19-Sep-2021 10:18 by Lex Frederick) Normal [facility] Laboratory - Chemistry and C hemistry [...] Phone: HCO3 (Bld) [Moles/Vol] 27.2 mmol/L above hig h threshold See Below [facility] [facility] [...] Potassium [Moles/Vol] 4.4 mmol/L 3.5 - 5.3 [facility] [facility] [facility] I Work Phone: Sodium [...] HCO3 (Bld) [Moles/Vol] 25.7 mmol/L See Below M [facility] [facility] Work Phone: Comment [...] Potassium [Moles/Vol] 3.9 mmol/L 3.5 - 5.3 [facility] [facility] I Work Phone: Sodium [...] Phone: HCO3 (Bld) [Moles/Vol] 28.5 mmol/L above hig h threshold See Below [facility] [facility] [...] Potassium [Moles/Vol] 4.1 mmol/L 3.5 - 5.3 [facility] [facility] I Work Phone: Sodium [Moles/Vol] [...] MCHC (RBC) [Mass/Vol] 35.0 g/dL See Below [facility] [facility] [facility] I Work Phone: Comment on above: Reference Range: 32. 0 - 36.0 MCV (RBC) [Entitic vol] 85 fL 80 - 100 [facility] I Work Phone: Platelets (Bld) [#/Vol] 326 10*3/uL 150 - 450 [facility] I Work Phone: RBC (Bld) [#/Vol] [...] dated 10/07/2020. MRI dated 12/11/2020 ACCESSION NUMBER(S): [id number] ORDERING CLINICIAN: ANGELO JUAREZ TECHNIQUE: Thin cut [...] as stated. This study was interpreted at [facility], [place], [place]. Electronically signed by: BOONE LAO MD Normal [facility] No Panel Informationon 09-18 0.0 {/100_WBC} [...] Respiratory Rate15 breath per minute Blood Pressure Tsiduyzv54 mm/Hg Blood Pressure Fufdzqkxr21 mm/Hg COVID 19 Results in Last 7 [...] 18-Sep-2021 06:59 by Lian Zuleta (SANAZ) Normal [facility] Radiologyon 09-18-2021 XR Chest Single view Normal [facility]roen [facility] [facility] I Work Phone: Renal Function Panelon 09-18 Albumin BCP dye [Mass/Vol] 3.6 g/dL 3.4 - 5.0 [facility] [facility] Work Phone: Anion gap [Moles/Vol] 13 mmol/L 10 - 20 [facility] [facility] I Work Phone: Calcium [Mass/Vol] 8.9 mg/dL 8.6 - 10.6 [facility]-Gas troen terology-[place] 6 I Work Phone: Chloride [Moles/Vol] 100 mmol/L 98 - 107 [facility] [facility] [facility] I Work Phone: CO2 [Moles/Vol] 28 mmol/L 21 - 32 [facility] en [facility] [facility] [facility] I Work Phone: Creatinine [Mass/Vol] 0.51 mg/dL See Below [facility] [facility] [facility] Work Phone: Comment on above: Reference Range: 0.5 0 - 1.05 Glucose [Mass/Vol] 123 mg/dL above high threshold 74 - 99 [facility] [facility] I Work Phone: Phosphate [Mass/Vol] 2.8 mg/dL 2.5 - 4.9 [facility] [facility] 6 [facility] Work Phone: Comment on above: The performance arsalan acteristics of phosphorus testing in heparinized plasma have been validated by the individual laboratory site where testing is performed. Testing on heparinized plasma is not approved by the FDA; however, such approval is not necessary. Potassium [Moles/Vol] 4.3 mmol/L 3.5 - 5.3 [facility] I Work Phone: Sodium [Moles/Vol] 137 mmol/L 136 - 145 [facility] [facility] [facility] I Work Phone: Urea nitrogen [Mass/Vol] 8 mg/dL 6 - 23 [facility] I Work Phone: Renal Function Panel >90 >90 [facility]roen [facility] [facility] 6 [facility] Work Phone: Comment on above: CALCULATIONS OF IVY MATED GFR ARE PERFORMED USING THE 2020 CKD-EPI STUDY REFIT EQUATION WITHOUT THE RACE VARIABLE FOR THE IDMS-TRACEABLE CREATININE METHODS.https://jasn.asnjournals.org/content/early /ASN.6067889492 TH CHEST; 1 VIEWon 2 TH CHEST; 1 VIEW Patient Name: MORALES LEE STUDY: CHEST; 1 VIEW; 09/18/2021 2:38 pm INDICATION: s/p central line placement (right IJ double lumen) . COMPARISON: Radiograph dated 09/15/2021 ACCESSION NUMBER(S): [id number] ORDERING CLINICIAN: BRYAN MORA FINDINGS: Right IJ [...] Electronically signed by: LORELEI JOHNSTON MD Normal [facility] VENOUS FULL PANELon 09-18-19 22 Anion gap [Moles/Vol] 6 mmol/L Low 10 - 25 [facility] Comment on above: Performed By: #### V FPA3 #### [facility] [address] [place] [address] BASE EXCESS-BLOOD 3.9 mmol/L High -2.0 - 3.0 [facility] Comment on above: Performed By: #### V FPA3 #### [facility] [address] [place] [address] BICARB, CALCULATED 28.5 mmol/L High 22.0 - 26.0 [facility] Comment on above: Performed By: #### V FPA3 #### [facility] [address] [place] [address] CALCIUM,IONIZED 1.17 mmol/L Normal 1.10 - 1.33 [facility] Comment on above: Performed By: #### V FPA3 #### [facility] [address] [place] [address] Chloride [Moles/Vol] 103 mmol/L Normal 98 - 107 [facility] Comment on above: Performed By: #### V FPA3 #### [facility] [address] [place] [address] Glucose [Mass/Vol] 188 mg/dL High 74 - 99 [facility] Comment on above: Performed By: #### V FPA3 #### [facility] [address] [place] [address] Hematocrit (Bld) [Volume fraction] 39.0 % Normal 36.0 - 46.0 [facility] Comment on above: Performed By: #### V FPA3 #### [facility] [address] [place] [address] HGB,CALCULATED 13.3 g/dL Normal 12.0 - 16.0 [facility] Comment on above: Performed By: #### V FPA3 #### [facility] [address] [place] [address] Lactate [Moles/Vol] 1.2 mmol/L Normal 0.4 - 2.0 [facility] Comment on above: Performed By: #### V FPA3 #### [facility] [address] [place] [address] Oxygen (Bld) [Partial pressure] 56 mm[Hg] High 35 - 45 [facility] Comment on above: Performed By: #### V FPA3 #### [facility] [address] [place] [address] PATIENT TEMPERATURE 37.0 degrees C Normal [facility] Comment on above: Result Comment: NOTE : PATIENT RESULTS ARE NOT CORRECTED FOR TEMPERATURE. Performed By: #### V FPA3 #### [facility] [address] [place] [address] PCO2 42 mmHg Normal 41 - 51 [facility] Comment on above: Performed By: #### V FPA3 #### [facility] [address] [place] [address] pH (Bld) 7.44 [pH] High 7.33 - 7.43 [facility] Comment on above: Performed By: #### V FPA3 #### [facility] [address] [place] [address] Potassium [Moles/Vol] 4.1 mmol/L Normal 3.5 - 5.3 [facility] Comment on above: Performed By: #### V FPA3 #### [facility] [address] [place] [address] SO2 91 % High 45 - 75 [facility] Comment on above: Performed By: #### V FPA3 #### [facility] [address] [place] [address] Sodium [Moles/Vol] 133 mmol/L Low 136 - 145 [facility] Comment on above: Performed By: #### V FPA3 #### [facility] [address] [place] [address] CORONAVIRUS 2019, SCREEN ASY MPTOMATICon 09-17-2021 SARS-CoV-2 (COVID-19) RNA ADRIÁN+probe Ql (Unsp spec) Not detected Normal Not Detected [facility] Comment on above: Result Comment: . This test has received FDA Emergency Use Authorization (EUA) and has been verified by [facility] ([facility]). This test is only authorized for the duration of time that circumstances exist to justify the authorization of the emergency use of in vitro diagnostic tests for the detection of SARS-CoV-2 virus and/or diagnosis of COVID-19 infection under section 564(b)(1) of the Act, 21 U.S.C. 360bbb-3(b)(1), unless the authorization is terminated or revoked sooner. [facility] is certified under CLIA-88 as qualified to perform high complexity testing. Testing is performed in the [facility] located at [address] [place] [address]. SARS-CoV-2/Flu/RSV Multiplex Test: Fact sheet for providers: https://www.fda.gov/media/904243/download Fact sheet for patients: https://www.fda.gov/media/452697/download Performed By: #### C OVSC ####[id number] [place] [address] Lab Specimen Source Nasal, Nasopharyngeal Normal [facility] Comment on above: Performed By: #### C OVSC ####[id number] [place] [address] Coronavirus 2019 RNA by PCR, Screening Asymptomticon 09-17-2021 Coronavirus 2019 RNA by PCR, Screening Asymptomtic Not detected Normal See Below [facility] Work Phone: Comment on above: SOURCE: Nasal, Nasop haryngealReference Range: Not Detected.This test has received FDA Emergency Use Authorization (EUA) and has been verified by [facility] ([facility]). This test is only authorized for the duration of time that circumstances exist to justify the authorization of the emergency use of in vitro diagnostic tests for the detection of SARS-CoV-2 virus and/or diagnosis of COVID-19 infection under section 564(b)(1) of the Act, 21 U.S.C. 360bbb-3(b)(1), unless the authorization is terminated or revoked sooner. [facility] is certified under CLIA-88 as qualified to perform high complexity testing. Testing is performed in the [facility] located at [address] [place] [address].SARS-CoV-2/Flu/RSV Multiplex Test: Fact sheet for providers: https://www.fda.gov/media/074591/downloadFact sheet for patients: https://www.fda.gov/media/308095/download Covid 19 Resultson 2 SARS-CoV-2 (COVID-19) RNA [...] You may also be contacted by the [facility] to see if any of your [...] or Naproxen (Aleve) can also be used. Xwll-ojf-dzdkcdf cough and cold medicines can be used according to the instructions on the package. Some mkme-uzq-nfvhprb medicines also contain acetaminophen. Make sure you [...] water are not available, use alcohol-based hand homogenizer operator. Avoid touching your eyes, nose, and [...] 24 mariella (more content not included)... Normal [facility] Daily Progress Note - Psychi vivianyon [...] pain but found it well-controlled on Dilaudid ACCESS CONTROL OFFICER and 5/10 mg oxycodone. Pt is interested [...] he has been working (cardoza at a [employer]), but she looks forward to his arrival [...] her suboxone. Objective: Objective Information: T PRBPSpO2 Value36.40235844/9095% Date/Time09/17 4: 10: 10:: 10:00 Range(35.7C - 36.6C ) (81 - 89 ) (10 - 23 ) (73 - 117 )/ (43 - 90 ) (91% - 96% ) As of 17-Sep-2021 08:00:00, patient is on 3 L/min of oxygen via nasal cannula. Pain reported at 09/17 8:00: 8 = Severe ---- Intake and Output ----- Mn/Dy/Year TimeIntakeOutputNet Sep 17, 2021 6:00 [id number] Sep 16, 2021 2:00 [id number] The Intake and Output Totals for the last 24 hours are: IntakeOutputNet [id number] Mental Status Exam: General: Awake, lying in [...] Insight: Fair Judgment: Fair. Medications: Continuous Medications ------- No continuous medications are active Scheduled Medications ------- 1. Acetaminophen: 650 mg Oral Every 6 [...] a Da (more content not included)... Normal [facility] Daily Progress Note-Neurosur jinny 09-17-2021 Daily Progress Note-Neurosurgery Service: Neurosurgery Subjective Data: MORALES LEE is a 46 year old Female who is Hospital Day # 3. Objective Data: Objective Information: T PRBPSpO2 Value35.8258229/4393% Date/Time09/16 18:541/12 18:5409/16 18:5409/16 18:5409/16 18:54 Range(35.7C - 36.4C ) (81 - 91 ) (15 - 24 ) (87 - 118 )/ (43 - 84 ) (91% - 96% ) As of 16-Sep-2021 18:54:00, patient is on 2 L/min of oxygen via nasal cannula. Pain reported at 09/16 16:34: 10 = Severe ---- Intake and Output ----- Mn/Dy/[facility] Sep 16, 2021 2:00 [id number] Physical Exam by System: Neurological: A&Ox3 RUE [...] Cl- BUN / 140 101 10 / ------- Glucose -- 88 K+ HCO3- Creat \ 3.7 29 [...] the note. I personally evaluated the patient [id number] Comments/ Additional Findings I again explained to [...] Updated: 19-Sep-2021 10:16 by Lex Frederick) Normal [facility] HCG,URINEon 09-17-2021 Beta HCG ( test) Ql (U) Negative Normal Negative [facility] Comment on above: Performed By: #### A FPA3 #### [facility] [address] [place] [address] Laboratory - Blood bankon ABO group Nom (Bld) O [facility] [facility] [facility] Work Phone: Blood group antibody investigation (P/RBC) [Interp] Anti-E [facility] [facility] Work Phone: Blood group antibody screen Ql Positive [facility] [facility] Work Phone: Rh immune globulin screen (Bld) [Interp] Positive [facility]astroe n [facility]ology[facility] [facility] 6 I Work Phone: No [...] 09-17-2021 REQUEST-LEUKOREDUCED RED CELLS ORDER RECD Normal [facility] Comment on above: Performed By: #### O PRINCIPAL STATISTICAL PROGRAMMER #### [facility] [address] [place] [address] TYPE + SCREENon 09-17-2021 ABO TYPE O Normal [facility] Comment on above: Performed By: #### T +S #### [facility] [address] [place] [address] RH TYPE Positive Normal [facility] Comment on above: Performed By: #### T +S #### [facility] [address] [place] [address] Urine Teston 09-17 HCG ( test) Ql (U) Negative Negative [facility] [facility] 6 [facility] Work Phone: BNPon 09-16-2021 Natriuretic peptide B (Bld) [Mass/Vol] 37 pg/mL Normal 0 - 99 [facility] Comment on above: Result Comment: . [...] By: #### A FPA3 #### [facility] [address] [place], [place] CBC AND DIFFERENTIALon 09-16 % AUTOMATED IMMATURE GRAN 0.5 % Normal 0.0 - 0.9 [facility] Comment on above: Result Comment: Jaleesa ture Granulocyte Count (IG) includes promyelocytes, myelocytes and metamyelocytes but does not include bands. Percent differential counts (%) should be interpreted in the context of the absolute cell counts (cells/L). Performed By: #### C BCDF ####[id number] [place] [address] Basophils (Bld) [#/Vol] 0.04 10*3/uL Normal 0.00 - 0.10 [facility] Comment on above: Performed By: #### C BCDF ####[id number] [place] [address] Basophils/100 WBC (Bld) 0.5 % Normal 0.0 - 2.0 [facility] Comment on above: Performed By: #### C BCDF ####[id number] [place] [address] Eosinophils (Bld) [#/Vol] 0.26 10*3/uL Normal 0.00 - 0.70 [facility] Comment on above: Performed By: #### C BCDF ####[id number] [place] [address] Eosinophils/100 WBC (Bld) 3.0 % Normal 0.0 - 6.0 [facility] Comment on above: Performed By: #### C BCDF ####[id number] [place] [address] Erythrocyte distribution width (RBC) [Ratio] 13.0 % Normal 11.5 - 14.5 [facility] Comment on above: Performed By: #### C BCDF ####[id number] [place] [address] Hematocrit (Bld) [Volume fraction] 42.7 % Normal 36.0 - 46.0 [facility] Comment on above: Performed By: #### C BCDF ####[id number] [place] [address] Hemoglobin (Bld) [Mass/Vol] 14.1 g/dL Normal 12.0 - 16.0 [facility] Comment on above: Performed By: #### C BCDF ####[id number] [place] [address] Lymphocytes (Bld) [#/Vol] 3.17 10*3/uL Normal 1.20 - 4.80 [facility] Comment on above: Performed By: #### C BCDF ####[id number] [place] [address] Lymphocytes/100 WBC (Bld) 37.2 % Normal 13.0 - 44.0 [facility] Comment on above: Performed By: #### C BCDF ####[id number] [place] [address] MCHC (RBC) [Mass/Vol] 33.0 g/dL Normal 32.0 - 36.0 [facility] Comment on above: Performed By: #### C BCDF ####[id number] [place] [address] MCV (RBC) [Entitic vol] 91 fL Normal 80 - 100 [facility] Comment on above: Performed By: #### C BCDF ####[id number] [place] [address] Monocytes (Bld) [#/Vol] 0.47 10*3/uL Normal 0.10 - 1.00 [facility] Comment on above: Performed By: #### C BCDF ####[id number] [place] [address] Monocytes/100 WBC (Bld) 5.5 % Normal 2.0 - 10.0 [facility] Comment on above: Performed By: #### C BCDF ####[id number] [place] [address] Neutrophils (Bld) [#/Vol] 4.55 10*3/uL Normal 1.20 - 7.70 [facility] Comment on above: Performed By: #### C BCDF ####[id number] [place] [address] Neutrophils/100 WBC (Bld) 53.3 % Normal 40.0 - 80.0 [facility] Comment on above: Performed By: #### C BCDF ####[id number] [place] [address] NUCLEATED RBC 0.0 /100 WBC Normal 0.0-0.0 [facility] Comment on above: Performed By: #### C BCDF ####[id number] [place] [address] Platelets (Bld) [#/Vol] 278 10*3/uL Normal 150 - 450 [facility] Comment on above: Performed By: #### C BCDF ####[id number] [place] [address] RBC 4.70 x10E12/L Normal 4.00 - 5.20 [facility] Comment on above: Performed By: #### C BCDF ####[id number] [place] [address] WBC (Bld) [#/Vol] 8.5 10*3/uL Normal 4.4 - 11.3 [facility] Comment on above: Performed By: #### C BCDF ####[id number] [place] [address] COAGULATION SCREENon 022 aPTT Coag (Bld) [Time] 31 s Normal 26 - 39 [facility] Comment on above: Result Comment: Note new reference range as of 08/04/2021 at 10:00am. Performed By: #### V FPA3 #### [facility] [address] [place] [address] PT Coag (PPP) [Time] 11.6 s Normal 9.8 - 13.4 [facility] Comment on above: Result Comment: Note new reference range as of 08/04/2021 at 10:00am. Performed By: #### V FPA3 #### [facility] [address] [place] [address] PT, INR 1.0 Normal 0.9 - 1.1 [facility] Comment on above: Performed By: #### V FPA3 #### [facility] [address] [place] [address] Clinical Event Note-ADMISSIO N CLARIFICATIONon 09-16-2021 Clinical [...] and monitoring for withdrawal. Provider/Team Contact Info-Pager [id number] Electronic Signatures: Sharmin Guaman (BELLOWS CHARGER ASSEMBLER-LAST REMODELER REPAIRER) (Signed 16-Sep-2021 12:07) Authored: Clinical Event Note Last Updated: 16-Sep-2021 12:07 by Sharmin Guaman (BELLOWS CHARGER ASSEMBLER-LAST REMODELER REPAIRER) Normal [facility] Complete Blood Count + Diffe rentialon 09-16-2021 Basophils/100 WBC (Bld) 0.5 % 0.0 - 2.0 M [facility] Work Phone: Erythrocyte distribution width (RBC) [Ratio] 13.0 % See Below [facility]astro[facility] 6 [facility] Work Phone: Comment on above: Reference Range: 11. 5 - 14.5 Hematocrit (Bld) [Volume fraction] 42.7 % See Below [facility] 6 [facility] Work Phone: Comment on above: Reference Range: 36. 0 - 46.0 Hemoglobin (Bld) [Mass/Vol] 14.1 g/dL See Below [facility] I Work Phone: Comment on above: Reference Range: 12. 0 - 16.0 Lymphocytes/100 WBC (Bld) 37.2 % See Below [facility] [facility] 6 [facility] Work Phone: Comment on above: Reference Range: 13. 0 - 44.0 MCHC (RBC) [Mass/Vol] 33.0 g/dL See Below [facility]- [facility]astroen [facility]ology[facility] [facility] 6 [facility] Work Phone: Comment on above: Reference Range: 32. 0 - 36.0 MCV (RBC) [Entitic vol] 91 fL 80 - 100 M [facility] [facility] 6 [facility] Work Phone: Monocytes/100 WBC (Bld) 5.5 % 2.0 - 10.0 M [facility] I Work Phone: Neutrophils/100 [...] 0.0 {/100_WBC} 0.0-0.0 [facility]astroen [facility]ology-[facility] 6 [facility] Work Phone: Consult-Painon 09-16-2021 Consult-Pain [...] the note. I personally evaluated the patient [id number] Electronic Signatures: Chidi Lamar (Fellow)) (Signed 16-Sep-2021 08:54) Authored: History of Present Illness, Review Family/Social History and ROS, Allergies Aaron Fernandes (Resident)) (Signed 16-Sep-2021 15:24) Authored: Service, History of Present Illness, Review Family/Social History and ROS, Objective, Assessment/Recommendation s, Note Completion Chidi Dobbs) (Signed 16-Sep-2021 18:21) Authored: Assessment/Recommendation s, Note Completion Co-Signer: Assessment/Recommendation s, Note Completion Last Updated: 16-Sep-2021 18:21 by Chidi Dobbs () References: 1. Data Referenced From Consult - Psychiatry 15-Sep-2021 20:42 Normal [facility] Consult-Perioperative Medici neon 09-16-2021 Consult-Perioperative Medicine Service: Service: Perioperative Medicine Consult: Consult [...] penicillin: Unknown Objective: Objective Information: T PRBPSpO2 [id number]/8491% Date/Time09/16 11:131/12 12:4909/16 12:4909/16 12:4909/16 12:49 Range(36.3C [...] lesions, no rashes Medications: Medications: Continuous Medications ------- No continuous medications are active Scheduled Medications ------- 1. Calcium 500 mg - Vitamin D [...] 100 mg (more content not included)... Normal [facility] Cult, Urineon 09-16-2021 Bacteria identified Cx Nom (U) Abnormal [facility] Work Phone: Daily Progress Note-Neurosur jinny 09-16-2021 Daily Progress Note-Neurosurgery Service: Neurosurgery Subjective Data: MORALES LEE is a 46 year old Female who is Hospital Day # 3. Objective Data: Objective Information: T PRBPSpO2 [id number]/6693% Date/Time09/16 1: 4: 4: 4: 4:00 Range(36.3C [...] (suboxone) in AM COWS psych recs SCD's, [facility] Attestation: Note Completion: I am [...] the note. I personally evaluated the patient [id number] Comments/ Additional Findings TO OR this Tuesday if medically optimized for T12 - Pelvis fusion and Instrumentation. Pain consult for management regrading Suboxone and pain control in the perioperative period. US LE MRI of the lumbar spine., Lex Frederick MD, [facility], FAANS Director - Minimally Invasive Spine Surgery [facility] Supervisor of Neurological Surgery [employer] [place], [place] Electronic Signatures: Fidel Maciel (Resident)) (Signed 16-Sep-2021 04:33) Authored: Service, Subjective Data, Objective Data, Assessment and Plan, Note Completion Lex Frederick) (Signed 16-Sep-2021 10:22) Authored: Note Completion Co-Signer: Service, Subjective Data, Objective Data, Assessment and Plan, Note Completion Last Updated: 16-Sep-2021 10:22 by Lex Frederick) Normal [facility] EMR ADDONon 09-16-2021 ADDON CONFIRMATION REQUEST REC'D Normal [facility] Comment on above: Performed By: #### E MRAD ####NO LOCATION NEEDED Laboratory - Coagulationon 0 09-16-2021 aPTT Coag (PPP) [Time] 31 s 26 - 39 [facility]en [facility]ology[facility] Work [...] above: . <100 pg/mL - Heart failure [id number] pg/mL - Intermediate probability of acute heart. [...] [Mass/Vol] 3.5 g/dL Normal 3.4 - 5.0 [facility] Comment on above: Performed By: #### R ENAL #### [facility] [address] [place] [address] Anion gap [Moles/Vol] 14 mmol/L Normal 10 - 20 [facility] Comment on above: Performed By: #### R ENAL #### [place] [address] [place] [address] Calcium [Mass/Vol] 8.9 mg/dL Normal 8.6 - 10.6 [facility] Comment on above: Performed By: #### R ENAL #### [facility] [address] [place] [address] Chloride [Moles/Vol] 101 mmol/L Normal 98 - 107 [facility] Comment on above: Performed By: #### R ENAL #### [facility] [address] [place] [address] Creatinine [Mass/Vol] 0.63 mg/dL Normal 0.50 - 1.05 [facility] Comment on above: Performed By: #### R ENAL #### [facility] [address] [place] [address] eGFR FEMALE >90 Normal >90 [facility] Comment on above: Result Comment: CALC ULATIONS OF ESTIMATED GFR ARE PERFORMED USING THE 2020 CKD-EPI STUDY REFIT EQUATION WITHOUT THE RACE VARIABLE FOR THE IDMS-TRACEABLE CREATININE METHODS. https://jasn.asnjournals.org/content//ASN.539 9319752 Performed By: #### R ENAL #### [facility] [address] [place] [address] Glucose [Mass/Vol] 88 mg/dL Normal 74 - 99 [facility] Comment on above: Performed By: #### R ENAL #### [facility] [address] [place] [address] HCO3 (Bld) [Moles/Vol] 29 mmol/L Normal 21 - 32 [facility] Comment on above: Performed By: #### R ENAL #### [facility] [address] [place] [address] Phosphate [Mass/Vol] 3.4 mg/dL Normal 2.5 - 4.9 [facility] Comment on above: Result Comment: The performance characteristics of phosphorus testing in heparinized plasma have been validated by the individual laboratory site where testing is performed. Testing on heparinized plasma is not approved by the FDA; however, such approval is not necessary. Performed By: #### R ENAL #### [facility] [address] [place] [address] Potassium [Moles/Vol] 3.7 mmol/L Normal 3.5 - 5.3 [facility] Comment on above: Performed By: #### R ENAL #### [facility] [address] [place] [address] Sodium [Moles/Vol] 140 mmol/L Normal 136 - 145 [facility] Comment on above: Performed By: #### R ENAL #### [facility] [address] [place] [address] Urea nitrogen [Mass/Vol] 10 mg/dL Normal 6 - 23 [facility] Comment on above: Performed By: #### R ENAL #### [facility] [address] [place] [address] Renal Function Panelon 09-16 Albumin BCP dye [Mass/Vol] 3.5 g/dL 3.4 - 5.0 [facility] I Work Phone: Anion gap [Moles/Vol] 14 mmol/L 10 - 20 [facility] Work Phone: Calcium [Mass/Vol] 8.9 mg/dL 8.6 - 10.6 MG-Gas troen terology-[place] [facility] 6 [facility] Work Phone: Chloride [Moles/Vol] 101 mmol/L 98 - 107 [facility]-G astroen terology-[place] [facility] 6 I Work Phone: CO2 [Moles/Vol] 29 mmol/L 21 - 32 [facility]astro en [facility] [facility] 6 I Work Phone: Creatinine [Mass/Vol] 0.63 mg/dL See Below [facility] Work Phone: Comment [...] Potassium [Moles/Vol] 3.7 mmol/L 3.5 - 5.3 [facility] [facility] 6 [facility] Work Phone: Sodium [Moles/Vol] 140 mmol/L 136 - 145 [facility]Gas troen terology[facility] [facility] 6 I Work Phone: Urea nitrogen [Mass/Vol] 10 mg/dL 6 - 23 [facility] I Work Phone: Renal Function Panel >90 >90 MG-G astroen terology[facility] [facility] 6 [facility] Work Phone: Comment on above: CALCULATIONS OF IVY MATED GFR ARE PERFORMED USING THE 2020 CKD-EPI STUDY REFIT EQUATION WITHOUT THE RACE VARIABLE FOR THE IDMS-TRACEABLE CREATININE METHODS.https://jasn.asnjournals.org/content/ /ASN.8279722691 [facility] 09-16-2021 BACTERIA 2+ /HPF Abnormal [facility] Comment on above: Performed By: #### U AMIC ####[id number] [place] [address] Mucus Ql (Urine sed) 1+ /LPF Normal [facility] Comment on above: Performed By: #### U AMIC ####[id number] [place] [address] RBC 3 /HPF Normal 0-5 [facility] Comment on above: Performed By: #### U AMIC ####[id number] [place] [address] SQUAMOUS EPITH. CELLS 2 /HPF Normal [facility] Comment on above: Performed By: #### U AMIC ####[id number] [place] [address] WBC 115 /HPF Abnormal 0-5 [facility] Comment on above: Performed By: #### U AMIC ####[id number] [place] [address] URINALYSISon 09-16-2021 Appearance (U) HAZY Normal CLEAR [facility] Comment on above: Performed By: #### U A ####[id number] [place] [address] Bilirubin Ql (U) Negative Normal NEGATIVE [facility] Comment on above: Performed By: #### U A ####[id number] [place] [address] Color (U) YELLOW Normal STRAW,YELL OW [facility] Comment on above: Performed By: #### U A ####[id number] [place] [address] Glucose Ql (U) Negative Normal NEGATIVE [facility] Comment on above: Performed By: #### U A ####[id number] [place] [address] Hemoglobin Ql (U) Negative Normal NEGATIVE [facility] Comment on above: Performed By: #### U A ####[id number] [place] [address] Ketones Ql (U) Negative Normal NEGATIVE [facility] Comment on above: Performed By: #### U A ####[id number] [place] [address] Leukocyte esterase Test strip Ql (U) LARGE (3+) Abnormal NEGATIVE [facility] Comment on above: Performed By: #### U A ####[id number] [place] [address] Nitrite Ql (U) Positive Abnormal NEGATIVE [facility] Comment on above: Performed By: #### U A ####[id number] [place] [address] pH (U) 6.0 [pH] Normal 5.0 - 8.0 [facility] Comment on above: Performed By: #### U A ####[id number] [place] [address] Protein Ql (U) Negative Normal NEGATIVE [facility] Comment on above: Performed By: #### U A ####[id number] [place] [address] Specific gravity (U) [Rel density] 1.011 Normal 1.005 - 1.035 [facility] Comment on above: Performed By: #### U A ####[id number] [place] [address] Urobilinogen (U) [Mass/Vol] 2.0 mg/dL High 0.0 - 1.9 [facility] Comment on above: Result Comment: Due [...] positive urobilinogen. Performed By: #### U A ####[id number] [place] [address] URINE CULTURE,BACTERIALon URINE CULTURE,BACTERIAL PATIENT: Fay LEE LOCATION: [facility]#: [id number] : 71 AGE: SEX: F ORDERED BY: TOSHA BORJA SOURCE: URINE COLLECTED: 09/16/21 08:42 ANTIBIOTICS AT [facility].: RECEIVED : 09/16/21 17:08 SITE: Esther Kerr U Elena T S URINE CULTURE,BACTERIAL FINAL 09/18/21 09:19 ISOLATE1 : Escherichia coli >100,000 CFU/ML Organism E coli Antibiotic BP INTRP Ampicillin S Ceftriaxone S Cefazolin S Ciprofloxacin R Nitrofurantoin S Gentamicin S Levofloxacin R Piperc/Tazobact S Trimeth/Sulfa S ___ S=SUSCEPTIBLE I=INTERMEDIATE R=RESISTANT SDD=SUSCEPTIBLE DOSE DEPENDENT NS=NONSUSCEPTIBLE X=REPORTED IN ERROR ___ Normal [facility] Comment on above: Performed By: #### A FPA3 #### [facility] [address] [place] [address] Urinalysison 09-16-2021 Color (U) YELLOW See Below MG-Gastroen [employer] [facility] Work Phone: Comment on above: Reference Range: STR AW,YELLOW Glucose Ql (U) Negative NEGATIVE [facility]-Gastroe n terology-[place] [facility] Work Phone: Ketones Ql (U) Negative NEGATIVE MG-Gastroe n terology-[facility] 6 [facility] Work Phone: Leukocyte esterase Test strip Ql (U) LARGE (3+) Abnormal NEGATIVE [facility]astroen [facility]ology[facility] [facility] 6 I Work Phone: pH (U) 6.0 [pH] 5.0 - 8.0 [facility]en [facility]ology[facility] [facility] 6 [facility] Work Phone: Protein (U) [Mass/Vol] Negative NEGATIVE [facility] -[facility]astroen [facility]ology[facility] [facility] 6 I Work Phone: RBC (U) [#/Vol] Negative NEGATIVE MG-Gastro en terology-[facility] 6 [facility] Work Phone: Specific gravity (U) [Rel density] 1.011 1 See Below MG-Gastroen terology-[facility] 6 [facility] Work Phone: Comment on above: Reference Range: 1.0 05 - 1.035 Urinalysis Positive Abnormal NEGATIVE MG-Gastroen terology-[facility] 6 [facility] Work Phone: Urinalysis 2.0 mg/dL above high threshold 0.0 - 1.9 MG-Gastroen terology-[facility] 6 [facility] Work Phone: Comment on above: Due to [...] Urinalysis Negative NEGATIVE [facility]astroen [facility]ology[facility] 6 [facility] Work Phone: Urinalysis HAZY CLEAR [facility]astroen [facility]ology[facility] [facility] 6 [facility] Work Phone: Urinalysis, Microscopicon Urinalysis, Microscopic 1+ M G-Gastroen terology-[facility] 6 I Work Phone: Urinalysis, Microscopic 2+ Abnormal M [facility]astroen [facility]ology[facility] [facility] Work Phone: Urinalysis, Microscopic 2 {/HPF} M [facility]astroen [facility]ology[facility] [facility] [facility] Work Phone: Urinalysis, Microscopic 3 {/HPF} 0-5 M [facility]astroen [facility]ology-[place] [facility] 6 I Work Phone: Urinalysis, Microscopic 115 {/HPF} Abnormal 0-5 M [facility]en [facility] [facility] 6 I Work Phone: VASC LAB Venous Duplex Ultra sound DVTon 09-16-2021 VAS LAB Venous Duplex Ultrasound DVT [place] [address] and Vascular Lab Report Lower Venous Duplex Ultrasound Patient Name: MORALES LEE Reading Physician: [id number] Arjun Romero MD, RPVI Study Date: 09/16/2021 Referring Physician: [id number] HARRISON RAGSDALE MRN/PID: [id number] PCP: Accession/Order#: [id number] CC Report to: Date of : 1975 Technologist: Isai Burleson RVT Gender: F Technologist 2: Admission Status: Outpatient Location Performed: [facility] Diagnosis/ICD: M79.89-Left leg swelling; M79.89-Right leg swelling Procedure/CPT: 73864 Peripheral venous duplex scan for DVT complete-64801 CONCLUSIONS: Right Lower Venous: No evidence of [...] Spontaneous/Phasic Peroneal Yes None PTV Yes None [id number] Arjun Romero MD, YOLIE Final Normal [facility] VAS LAB Venous Duplex Ultra sound for DVTon 09-16-2021 [facility] LAB Venous Duplex Ultrasound for DVT [facility]astroen [facility]ology[facility] 6 I Work Phone: No Panel Informationon 09-15 [email or web address] ?RetrieveTestByDateTime?P bhuixtUA=[email or web address]&Date=1 09-05-2021&Time=19%3a14%3a 23%3a00&TestType=ECG&Site =1&OutputType=PDF&Ext=PDF [facility] [facility] I Work Phone: [...] Phone: 396 1 [facility]en [facility] [facility] 6 I Work Phone: 82 1 [facility]en [facility] [facility] Work Phone: 150 1 [facility]en [facility]-[place] [facility] 6 I Work Phone: 87 1 [facility]astroen [facility] [facility] 6 I Work Phone: [email or web address] ?RetrieveTestByDateTime?P gqzhljFN=[email or web address]&Date=1 09-05-2021&Time=19%3a14%3a 42%3a00&TestType=ECG&Site =1&OutputType=PDF&Ext=PDF [facility]en [facility] [facility] 6 I Work Phone: [...] Phone: 46 1 [facility]en [facility] [facility] 6 I Work Phone: 473 1 [facility]en [facility] [facility] Work Phone: 86 1 [facility]astroen [facility] [facility] 6 I Work Phone: Order Reconciliationon 09-15 Order Reconciliation Page 1 Admission Reconciliation Document Reconciliation Type: Admission requested on behalf of Concetta Shi (Advanced Practice Nurse) done by Concetta Shi ([facility]) Admission - Reconciliation: 15-Sep-2021 19:03 by: [...] to Incomplete: 30-Sep-2021 14:18 by: Concetta Shi ([facility]) Admission - Reconciliation: 30-Sep-2021 14:20 by: Concetta Shi ([facility]) Home MedicationsEnteredLast Dose TakenReconciled with current Order Reconciliation Comment/ Additional Information acetaminophen 325 mg oral tablet 2 tab(s) orally every 6 hours, as needed while having post operative [id number] Reviewed and Held Ambien CR 12.5 mg oral tablet, extended release 1 tab(s) oral [id number]-7524 Zolpidem Tablet (AMBIEN)DOSE = 10 mg Oral At BedtimeNotes from Pharmacy: Substitution For Zolpidem (Ambien CR) 12.5 mg at Bedtime Ambien CR 12.5 mg oral tablet, extended release continued as the inpatient order Zolpidem Ankle Foot Orthosis for foot [id number]-6460 Reviewed and Held betamethasone topical valerate 0.1% topical cream 1 milena topical prn 15-Sep-2021 EnteredInError Reviewed and Held Bilateral Prafos - orthotics to fit, - ICD 10: R26.0, M21.37, M62.81 30-Sep-2021 Reviewed and Held calcium-vitamin D 500 mg-200 intl units (5 mcg) oral tablet 1 tab(s) orally 4 times a [id number] Calcium 500 mg - Vitamin D 200 [...] times a day, as needed for muscle gsjyrf68-Gat-7863 Cyclobenzaprine Tablet (FLEXERIL)DOSE = 10 mg Oral [...] topical 1% topical gel 1 milena topical ibm07-Xob-0992 Reviewed and Held DULoxetine 30 mg oral [...] 2 tab(s) orally once a day, As Dvujct07-Mug-0185 Reviewed and Held gabapentin 800 mg oral tablet 1 tab(s) oral 3 times a [id number]-9689 Gabapentin Capsule (NEURONTIN)DOSE = 800 mg Oral 3 Times a Day gabapentin 800 mg oral tablet continued as the inpatient order Gabapentin LEFT AFO -Orthotics to fit, ICD 10: M21.7898-Oxf-3415 Reviewed and Held lidocaine 5% topical film Apply topically to affected area once a day, As Needed near surgical incision for incisional pain 15-Sep-2021 EnteredInError Reviewed and Held lisinopril 20 mg oral tablet 1 tab(s) oral once a njr56-Hvs-1006 Lisinopril Tablet (PRINIVIL, ZESTRIL)DOSE = 20 mg [...] patch TransDermal Every 24 HoursNotes from Pharmacy: [facility] nicotine 14 mg/24 hr transdermal film, [...] - available over the counter at any looasflc73-Xyd-4107 Reviewed and Held RIGHT AFO - Orthotics to fit, - M21.6325-Tcj-9257 Reviewed and Held sennosides-docusate 8.6 mg-50 mg oral tablet 2 tab(s) orally 2 times a day , -Take while using oxycodone for post operative pain to prevent contipation 15-Sep-19 (more content not included)... Normal [facility] Radiologyon 09-15-2021 XR Chest Single view Normal MG-G astroen terology-[facility] 6 [facility] Work Phone: TH CHEST 1 VIEWon 09-15-2021 TH CHEST 1 VIEW Patient Name: MORALES LEE STUDY: CHEST 1 VIEW; 09/15/2021 7:21 pm INDICATION: pre-op . COMPARISON: 12/26/2020. ACCESSION NUMBER(S): [id number] ORDERING CLINICIAN: TOSHA BORJA FINDINGS: CARDIOMEDIASTINAL SILHOUETTE: [...] Electronically signed by: Esther PEDERSON MD Normal [facility] Established Visit (Neurosurg ariana)on 09-08-2021 Established [...] in the Neurosurgery Spine Clinic at the [facility]. She is a very pleasant 46-year-old [...] obvious instability (more content not included)... Normal [employer] No Panel Informationon 09-08 Normal MG-Neurosur samsonGCLABS ([facility] Work Phone: Please click on the link to view the study images Normal MG-Neurosur samsonMgiuel Work Phone: SPINE, ENTIRE THORACIC/LUMBA R, INCLUDE [...] and T6-L4 Fusion. COMPARISON: None. ACCESSION NUMBER(S): [id number] ORDERING CLINICIAN: LEX FREDERICK FINDINGS: Fused PA [...] Electronically signed by: JOSEPH SALAZAR MD Normal [facility] Tobacco Screening.on Fall risk assessment b) One or more fall s in the last year MG-Nuha daviesGCLABS ([facility] Work Phone: Tobacco use status CPHS a) Yes M G-[facility] samsonAlcyone Lif[facility]iguel Work Phone: Established Visit (Neurosurg ariana)on 05-05-2021 Established Visit (Neurosurgery) History of Present Illness I just had the pleasure of seeing Mrs. Jesus villarreal in the Neurosurgery Spine Clinic at the [facility]. She is a very pleasant 45 -year-old female, who recently underwent a L1 Vertbrectomy and T6-L4 Fusion with me on 12/26/2020 and is status post 4 Months out from her surgery. Today's visit was a virtual visit with the patient at her home and myself at [facility]. She mentions that overall she is [...] in Ms. LEE care. Lex Frederick MD, [facility], FAANS Director - Minimally Invasive Spine Surgery [facility] Supervisor of Neurological Surgery [employer] [place], [place] Some of this note was completed using Grapeshot voice recognition technology and sometimes the software [...] May 05 2021 9:18PM EST (Author) Normal [employer] Established Visit (Neurosurg ariana)on 01-08-2021 Established Visit [...] in the Neurosurgery Spine Clinic at the [facility]. She is a very pleasant 45 -year-old female, who recently underwent a L1 Vertbrectomy and T6-L4 Fusion with me on 12/26/2020 and is status post 2 [...] the further treatment plan. Lex Frederick MD, [facility], FAANS Director - Minimally Invasive Spine Surgery [facility] Professional of Neurological Surgery [employer] [place], [place] Some of this note was completed using Grapeshot voice recognition technology and sometimes the software [...] Unspecified cord compression. COMPARISON: None. ACCESSION NUMBER(S): [id number] ORDERING CLINICIAN: LEX FREDERICK TECHNIQUE: Multiplanar and [...] spine. Electronically signed by: LENNY HAGER MD [facility] NR MRI L-SPINE WOon 12-12-19 21 NR MRI L-SPINE WO Patient Name: MORALES LEE STUDY: MRI L-SPINE WO; ; 12/11/2020 1:38 pm INDICATION: Lumbar Pain Scoliosis, unspecified Low back pain. COMPARISON: CT lumbar spine from 10/07/2020. MRI lumbar spine from 03/11/2016. ACCESSION NUMBER(S): [id number] ORDERING CLINICIAN: LEX FREDERICK TECHNIQUE: MRI of [...] multiple levels. This study was interpreted at [facility]. Electronically signed by: WESLEY CARBAJAL MD [facility] Initial Visit (Neurosurgery) on 10-28-2020 Initial [...] Status:Resulted - Preliminary,Retrospective By Protocol Authorization; Done: [id number] 12:00AM Reason: Unspecified for Xray Spine, entire thoracic/lumbar, include skull, cervical and sacral spine when performed, 2 or 3 view Radiologist to Determine Optimal Study : Y What are the patient's signs and symptoms? : Lumbar Pain SocHx: Current smoker Tobacco Use Screening; Status:Complete; Done: [id number] Patient Discussion/Summary It was a pleasure to see Ms. LEE at the [facility] at [facility]. Ms. 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 She now has been having severe symptoms [...] by another spine surgeon at the [facility] who recommended urgent surgery for her [...] even walk (more content not included)... Normal [facility] 07-10-2019 CNPN Telephone (SPNMMN) ----- MORALES LEE ([id number]) 1975 F Date Time Provider Department 07/10/19 DIXIE TEE [facility] During your visit today, we recorded [...] Order(s):CONSULT TO ORTHOPAEDIC SURGERY [19991006] Order #: [id number]: 1 Prescriptions as of 07/10/2019 Sig: LISINOPRIL [...] MD on 07/10/[address] [facility] CNOVon 07-09-2019 CNOV Office Visit (SPNSMN ) ----- MORALES LEE ([id number]) 1975 F Date Time Provider Department 07/09/19 9:30 AM STEVENSON QUAN SPNSMN During your visit today, we recorded the following information about you: Pulse Respiration Blood pressure Weight 89/minute 18/minute 124/74 95.8 kg Height 1.499 m Stevenson Quan MD 07/09/2019 2:56 PM Signed SPINE SURGERY OUTPATIENT CONSULT SERVICE DATE: 07/09/2019 PCP: No primary care provider on file. REFERRING PROVIDER: Dixie Tee MD [address] [facility] [address] Consult requested for an opinion regarding the [...] and hand left arm and hand Description: Burning;Numbness;Tightnes s Duration Amount of Time: 7 Duration Units: Years Frequency: Continuous Intervention: Exercise;Heat;Medication; Relaxation Pain Radiation: Pain does not radiate, Pain [...] Penicillins Swelling - Phenergan [Prometha* Swelling MEDICATIONS: lisinopril-hydrochlorothi azide (PRINZIDE,ZESTORETIC) 20-12.5 mg per tablet Take 1 [...] the patient or the patient?s personal sales donor recruitment representative. The patient has elected to schedule surgery at this time or intends to call the office with a surgical date. Shared decision making occurred while obtaining informed consent. 1. Imaging: Thoracic CT Without Contrast 2. Encouraged to call the office with any questions or concerns 3. 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 OBSOLETEon 07-09-2019 OBSOLETE Procedure (EMGMN) ----- MORALES LEE ([id number]) 1975 F Date Time Provider Department 07/09/19 7:45 AM EMG 1 NEUR MAIN EMGMN During your visit today, we recorded the following information about you: Referring Provider: DIXIE TEE [[id number]] Allergies As of Date: 07/09/2019 Noted Allergy [...] upper limb [G56.21] Order(s):EMG(NEURO/NI) [[id number]] Order #: [id number]: 1 Prescriptions as of 07/09/2019 Sig: LISINOPRIL [...] by JHON EASON MD on 07/09/19 Normal [facility] PROGRESSon 07-09-2019 PROGRESS HNO ID: [id number] Author: Stevenson Quan Service: ? Author Type: Physician Type: Progress Notes Filed: 07/09/2019 2:56 PM Note Text: SPINE SURGERY OUTPATIENT CONSULT SERVICE DATE: 07/09/2019 PCP: No primary care provider on file. REFERRING PROVIDER: Dixie Tee MD [address] [facility] [address] Consult requested for an opinion regarding the [...] and hand left arm and hand Description: Burning;Numbness;Tightnes s Duration Amount of Time: 7 Duration Units: Years Frequency: Continuous Intervention: Exercise;Heat;Medication; Relaxation Pain Radiation: Pain does not radiate, Pain [...] Penicillins Swelling - Phenergan [Prometha* Swelling MEDICATIONS: lisinopril-hydrochlorothi azide (PRINZIDE,ZESTORETIC) 20-12.5 mg per tablet Take 1 [...] the patient or the patient?s personal sales donor recruitment representative. The patient has elected to schedule [...] 09, 2019 TIME: 10:24 AM PAGER: Normal [facility] OT-XR DEXA BONE DENSITY IMPO RTon 07-06-2019 OT-XR DEXA BONE DENSITY IMPORT Images were obtained outside of [facility] [id number] Normal [facility] CASE MGT INIT [facility] 2018 CASE MGT INIT [facility] HNO ID: [id number] Author: Kimberly (Rn) MERA Dunaway Service: ? Author Type: Registered Nurse Type: Care Mgt Initial Assessment Filed: 06/20/2019 12:25 PM Note Text: CARE MANAGEMENT: ASSESSMENT AND DISCHARGE PLAN SERVICE DATE: 06/20/2019 SERVICE TIME: 12:21 PM PRIMARY CARE PHYSICIAN: No primary care provider on file. Phone: None ADMISSION STATUS: Observation Needs Prior to Discharge: To Be Determined MEDICAL: Patient/Document Coordinator Stated Goals: To have reduction in pain To have reduction in symptoms Health Insurance: BLUE CARD PPO Health Issues Impacting Discharge Plan: Chronic neck pain Last Discharge Date: 06/20/19 Is this Within the Past 30 days? No Advance Directive: Current Advance Directive: None Child Caregiver Private Home Attempted to Assist with AD Completion: Yes [...] None Has the Patient Been in a Half-Way Facility in the Past 30 days? N/A SOCIAL: Living Arrangement: Home Lives With: Spouse Financial Resources: Disabled Primary Contact: Extended Emergency Contact Information Primary Emergency Contact: Belinda Lee Address: [address] [place] [address] [facility] Mobile Relation: Spouse Supportive: Yes Other [...] 0 I feel financially burdened by my gxy-kh-pxsepn expenses for my prescription medication: Disagree completely [...] with . Does not utilize any DME, alf or community resources. Has d/c transportation via . Anticipate transitional care plan of home, no skilled needs identified at this time. TCC will remain available to assist as needed with transition planning. SIGNATURE: Kimberly Dunaway RN PATIENT NAME: Morales Lee DATE: June 20, 2019 TIME: 12:21 PM PAGER/CONTACT #: [phone] Normal [facility] CBCon 06-20-2019 Erythrocyte distribution width (RBC) [Ratio] 12.6 % Normal 11.5-15.0 [facility] Comment on above: Performed By: #### C BC #### [place] [phone] Hematocrit (Bld) [Volume fraction] 48.7 % High 36.0-46.0 [facility] Comment on above: Performed By: #### C BC #### [place] [phone] Hemoglobin (Bld) [Mass/Vol] 16.8 g/dL High 11.5-15.5 [facility] Comment on above: Performed By: #### C BC #### [place] [phone] MCH (RBC) [Entitic mass] 31.1 pG Normal 26.0-34.0 [facility] Comment on above: Performed By: #### C BC #### [place] [phone] MCHC (RBC) [Mass/Vol] 34.5 g/dL Normal 30.5-36.0 [facility] Comment on above: Performed By: #### C BC #### [place] [phone] MCV (RBC) [Entitic vol] 90.0 fL Normal 80.0-100.0 [facility] Comment on above: Performed By: #### C BC #### [place] [phone] Platelet mean volume (Bld) [Entitic vol] 10.6 fL Normal 9.0-12.7 [facility] Comment on above: Performed By: #### C BC #### [place] [id number] [place] [address] Platelets (Bld) [#/Vol] 334 10*3/uL Normal 150-400 [facility] Comment on above: Performed By: #### C BC #### [place] [address] RBC (Bld) [#/Vol] 5.41 10*6/uL High 3.90-5.20 [facility] Comment on above: Performed By: #### C BC #### [place] [address] WBC (Bld) [#/Vol] 10.85 10*3/uL Normal 3.70-11.00 [facility] Comment on above: Performed By: #### C BC #### [place] [address] CONSULTon 06-20-2019 CONSULT HNO ID: [id number] Author: Evelyn Resendez Service: Pain Management Author [...] controlled substances - including suboxone - from [facility]. Of note, pt has followed once [...] me to leave. She is now leaving [place]. 3. Will sign off _ SUBJECTIVE CHIEF COMPLAINT: worsening of chronic neck [...] activity was identified. 06/20/2019 by Evelyn Resendez APRN.LAST REMODELER REPAIRER PAST MEDICAL HISTORY Diagnosis Date - Degenerative [...] 20, 2019 TIME: 8:24 AM PAGER/CONTACT #: [phone] (M-F 8-5) [facility] CT BRAIN WO IVCONon 06-20-[address] BRAIN WO IVCON * * *Final Report* * * DATE OF EXAM: Jun 20 2019 1:31AM [facility] 0504 - CT BRAIN WO [...] No large cortical infarct or acute hemorrhage. Securities Clerk: ADITYA Transcribe Date/Time: Jun 20 2019 1:33A Dictated by : DAVONTE MOY MD This examination was interpreted and the report reviewed and electronically signed by: DAVONTE MOY MD on Jun 20 2019 1:35AM EST [id number] [facility] ECG COMPLETEon 06-20-2019 ECG COMPLETE NAME : MORALES LEE PID : [id number] : 1975 Gender : Female Race : ORD : [id number] Procedure Date : Jun 19 2019 23:57:03 Edit Date : Jun 20 2019 07:51:18 Diagnosis:Sinus rhythm Normal ECG no STEMI 1200a Confirmed by MD ARREDONDO LISA ([id number]), index editor FOREST WALTON ([id number]) on 06/20/2019 7:51:18 AM Ventricular Rate : 85 BPM Atrial Rate : 85 BPM P-R Interval : 137 ms QRS Duration : 91 ms Q-T Interval : 365 ms QTC Calculation(Bazett) : 434 ms P [place] : 51 degrees R [place] : -13 degrees T [place] : 61 degrees Test Reason : Chest Pain Location : 302 : ED AVED-1 Overread By : MD ARREDONDO LISA Edited By : FOREST WALTON Referred By : , Acquired by : [id number], [facility] ED NOTEon 06-20-2019 ED NOTE HNO ID: [id number] Author: Yuki Mckenzie) MERA Cruz Service: ? Author Type: Registered Nurse Type: ED Notes Filed: 06/20/2019 1:40 AM Note Text: Patient got CT, it is still pending and Jessie MESA said ok to transfer to [facility] with out results pending. Patient agreeing and understanding of transfer. updated on POC and transfer via telephone. DM here to take patient at this time. Pain is not improved at time of transfer. [facility] ED NOTE HNO ID: [id number] Author: Yuki Cruz RN Service: ? Author Type: Registered Nurse Type: ED Notes Filed: 06/20/2019 1:15 AM Note Text: Clean catch urine specimen obtained and sent. [facility] ED NOTE HNO ID: [id number] Author: Yuki Cruz RN Service: ? Author Type: Registered Nurse Type: ED Notes Filed: 06/20/2019 1:58 AM Note Text: Heidi MESA at bed side. Patient continues to be very upset and is wanting to leave A. She feels that she has been here [...] time with getting transferred to another facility. [facility] ED NOTE HNO ID: [id number] Author: Yuki Mckenzie) MERA Cruz Service: ? Author Type: Registered Nurse Type: ED Notes Filed: 06/20/2019 3:28 AM Note Text: Patient stated Valium did not help. She continues to be in pain and upset. She wanted to speak with someone in charge and update on POC. Normal [facility] HISTORY PHYSICALon 9 HISTORY PHYSICAL HNO ID: [id number] Author: Talita Wesley RN Service: General Internal [...] tightness that is constant. Notices a decreased clinical systems analyst strength and weakness in left hand. She [...] pills per day. Medications Prior to Admission: lisinopril-hydrochlorothi azide (PRINZIDE,ZESTORETIC) 20-12.5 mg per tablet Take 1 [...] rotation 40/80% Decreased left C5-C7 sensation. Left clinical systems analyst strength 2/5. Right clinical systems analyst strength 5/5. UE DTR intact and equal. [...] tightness into left arm, weak left hand clinical systems analyst strength, and worsening severity of numbness/tingling -Afebrile [...] Needs confirmed with patient pharmacy. Patient uses [facility] in [place], [place]. Patient provided #[phone]. Will call in am to confirm dose. Nicotine Abuse Assessment AND Plan: Smokes 1 1/2 PPD for 20 years. Smoking cessation advised. Nicotine patch ordered. Medication and Non-Pharmacologic VTE Prophylaxis/Anticoagulant s VTE Prophylaxis: VTE prophylaxis appropriate SIGNATURE: Talita Wesley APRN.CNP PATIENT NAME: Morales Lee DATE: June 20, 2019 TIME: 2:58 AM PAGER/CONTACT #: U # [phone] [facility] NURSING PROGon 06-20-2019 NURSING PROG HNO ID: [id number] Author: Austyn (Rn) MERA Berumen Service: Nursing Author Type: Registered Nurse Type: Nursing Progress Note Filed: 06/20/2019 3:10 PM Note Text: Nursing Progress Note Patient Name: Morales Lee Patient Location: [id number] -02 Daily Note:06/20/2019 -pt is upset regarding the [...] note was completed by: AUSTYN BERUMEN RN [facility] NURSING PROG HNO ID: [id number] Author: Austyn Mckenzie) MERA Berumen Service: Nursing Author Type: Registered Nurse Type: Nursing Progress Note Filed: 06/20/2019 8:10 AM Note Text: Nursing Progress Note Patient Name: Morales Lee Patient Location: [id number] -02 Daily Note:06/20/2019 -assumed care of patient, pt is requesting her suboxone. We have to call to verify dosage. -MERA Acosta called pharmacy provided by night [facility] SPECIALIST and the pharmacy does not open until 9am. We will call back to verify dose later. -Dr. Kwon called to speak with this RN, he will be in to see the patient later today. This note was completed by: AUSTYN BERUMEN RN [facility] NURSING PROG HNO ID: [id number] Author: Guadalupe eHrbert RN Service: ? Author Type: Registered Nurse Type: Nursing Progress Note Filed: 06/20/2019 4:33 AM Note Text: Nursing Progress Note Patient Name: Morales Lee Patient Location: [id number] -02 Daily Note:AANDO x 3. C/O left hand [...] note was completed by: Guadalupe Herbert RN [facility] PROGRESSon 06-20-2019 PROGRESS HNO ID: [id number] Author: Sedrick Martin Service: General Internal Medicine [...] rales. Cor:RSR, no murmurs. 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 DATA: Diagnostic tests [...] hospital problems. * Medication and Non-Pharmacologic VTE Prophylaxis/Anticoagulant s 06/20/19399 pneumatic compression stockings (pa,vt) 06/20/19399 activity - mobilize patient ([place], [place]) VTE Prophylaxis: appropriate SIGNATURE: Sedrick Martin MD PATIENT NAME: Morales Lee DATE: June 20, 2019 TIME: 10:41 AM PAGER: [facility] PROGRESS HNO ID: [id number] Author: Sedrick Martin Service: General Internal Medicine Author Type: Physician Type: Progress Notes Filed: 06/20/2019 8:25 AM Note Text: As per Pain Management Consult still pending, I was notified by Pain Management to resume the pt.' s home Suboxone dosage until pt. Seen later today. Normal [facility] Troponin Ton 06-20-2019 Troponin T.cardiac [Mass/Vol] ug/L Normal 0.000-0.[address] [place] [address] Comment on above: Performed By: #### T NT #### [place] [address] Troponin T.cardiac [Mass/Vol] ug/L Normal 0.000-0.[address] [place] [address] Comment on above: Performed By: #### T NT #### [place] [phone] Basic Metabolic Panlon 06-19 Anion gap [Moles/Vol] 14 mmol/L Normal 9-18 [facility] Calcium [Mass/Vol] 10.3 mg/dL High 8.5-10.2 [facility] Chloride [Moles/Vol] 96 mmol/L Low 97-105 [facility] CO2 [Moles/Vol] 29 mmol/L Normal 22-30 [facility] Creatinine [Mass/Vol] 0.59 mg/dL Normal 0.58-0.96 [facility] eGFR- Amer. >60 Normal [facility] GFR/1.73 sq M predicted among non-blacks MDRD (S/P/Bld) [Vol rate/Area] mL/min/{1.73_m2} Normal [facility] Comment on above: Result Comment: eGFR [...] GFR. Glucose [Mass/Vol] 114 mg/dL High 74-99 [facility] Comment on above: Result Comment: The [place] Diabetes Association (ADA) provides guidance for cutoff [...] Standards of Medical Care in Diabetes 2016, [place] [employer] Association. Diabetes Care. 2016.39(Suppl 1). Potassium [Moles/Vol] 3.7 mmol/L Normal 3.7-5.1 [facility] Sodium [Moles/Vol] 139 mmol/L Normal 136-144 [facility] Urea nitrogen [Mass/Vol] 7 mg/dL Normal 7-21 [facility] CBC and Differentialon 06-19 Abs Baso 0.09 k/uL Normal <0.11 [facility] Abs [place] 0.61 k/uL Normal <0.87 [facility] Abs Neut 7.56 k/uL High 1.45-7.50 [facility] Absolute nRBC <0.01 Normal <0.01 [facility] Basophils/100 WBC (Bld) 0.7 % Normal [facility] DTYPE Auto Diff Normal [facility] Eosinophils (Bld) [#/Vol] 0.25 10*3/uL Normal <0.46 [facility] Eosinophils/100 WBC (Bld) 1.9 % Normal [facility] Erythrocyte distribution width (RBC) [Ratio] 12.0 % Normal 11.5-15.0 [facility] Hematocrit (Bld) [Volume fraction] 52.6 % High 36.0-46.0 [facility] Hemoglobin (Bld) [Mass/Vol] 18.0 g/dL High 11.5-15.5 [facility] Lymphocytes (Bld) [#/Vol] 4.67 10*3/uL High 1.00-4.00 [facility] Lymphocytes/100 WBC (Bld) 35.4 % Normal [facility] MCH (RBC) [Entitic mass] 30.0 pG Normal 26.0-34.0 [facility] MCHC (RBC) [Mass/Vol] 34.2 g/dL Normal 30.5-36.0 [facility] MCV (RBC) [Entitic vol] 87.7 fL Normal 80.0-100.0 [facility] Monocytes/100 WBC (Bld) 4.6 % Normal [facility] Neutrophils/100 WBC (Bld) 57.4 % Normal [facility] NRBCs 0.0 /100 WBC Normal 0 [facility] Platelet mean volume (Bld) [Entitic vol] 10.1 fL Normal 9.0-12.7 [facility] Platelets (Bld) [#/Vol] 370 10*3/uL Normal 150-400 [facility] RBC (Bld) [#/Vol] 6.00 10*6/uL High 3.90-5.20 [facility] WBC (Bld) [#/Vol] 13.18 10*3/uL High 3.70-11.00 [facility] ED NOTEon 06-19-2019 ED NOTE HNO ID: [id number] Author: Yuki WilksRn) MERA Cruz Service: ? Author Type: Registered Nurse Type: ED Notes Filed: 06/20/2019 3:27 AM Note Text: Patient has requested valium, she says that she takes it at home. [facility] updated. Normal [facility] ED NOTE HNO ID: [id number] Author: Yuki WilksRn) MERA Cruz Service: ? Author Type: Registered Nurse Type: ED Notes Filed: 06/20/2019 3:27 AM Note Text: Patient is complaining of nausea. She is requesting her saboxon as well and Biago was updated on request. [facility] ED NOTE HNO ID: [id number] Author: Yuki WilksRn) MERA Cruz Service: ? Author Type: Registered Nurse Type: ED Notes Filed: 06/19/2019 7:54 PM Note Text: Said that after her surgery in 2016 her left pinky and ring finger are numb but she said lately her other fingers on that hand have been getting numb as well. [facility] ED NOTE HNO ID: [id number] Author: Vanessa WilksRn) MERA Ruiz Service: ? Author Type: Registered Nurse Type: ED Notes Filed: 06/19/2019 6:48 PM Note Text: Patient has chronic neck pain for three years. Saw spine doctor 06/12/2019 for the same had x rays. Denies any new injury. States pain goes into left arm. Arrived via wheelchair [facility] ED PROV NOTEon 06-19-2019 ED PROV NOTE HNO ID: [id number] Author: Tracy Arredondo Service: Emergency Medicine Author [...] light touch over bilateral lower extremities. 3/5 clinical systems analyst, bicep, tricep strength over LUE. Decreased sensation to light touch over left upper extremity in median, radial, and ulnar nerve distribution. 5/5 clinical systems analyst, bicep, tricep strength of R UE. Skin: [...] neurosurgical consult as previous notes from her autism motor specialist recommend obtaining EMG and possible further [...] a neurosurgical consult she warrants transfer to [facility] for further management of her condition. We have low suspicion for stroke at this time as pain appears to be radicular in nature and she has had worsening progression of her symptoms with documented notes from spine (Dr. Álvarez) suggesting this worsening pain and numbness. The LAST REMODELER REPAIRER, Talita, at [facility] recommended we obtain a CT brain and she must rule out any acute intercranial abnormality that may be contributing to the patient's symptoms. Therefore, this study was ordered and will be followed up by the night team especially if there is any acute intracranial abnormality. As long as there is no acute intracranial abnormality she will be transferred to [facility] for further evaluation and management of her condition. Patient voiced understanding was in agreement with the above plan. This patient's case was discussed with Dr. Arredondo who personally evaluated the patient supervised her care. The patient was TRANSFERRED to: [facility] Condition at time of disposition: stable SIGNATURE: NORMA Montgomery (Pa) 06/20/19 0026 Attending Note I have personally performed a face to face assessment of the patient and have reviewed the PA/DOCTOR OF NURSE ANESTHESIA PRACTICE note. My schofield findings include: History is [...] of 5 strength left upper extremities in clinical systems analyst strength as well as biceps and triceps [...] worsening neck pain we will place her [facility] observation for cardiac rule out as well [...] and requested by the observation provider at [facility] as they were concerned about stroke. However I doubt this and did not feel this was necessary however it is currently pending and patient will be transferred to [facility] if this is unremarkable. Signature: Tracy Arredondo DO Date: 06/20/2019 Time: 12:26 AM Tracy Arredondo 06/20/19 0033 Normal [facility] Magnesiumon 06-19-2019 Magnesium [Mass/Vol] 2.0 mg/dL Normal 1.7-2.3 [facility] Troponin Ton 06-19-2019 Troponin T.cardiac [Mass/Vol] ug/L Normal 0.000-0.02 9 [facility] CNOVon 06-12-2019 CNOV Office Visit (SPNMMN ) ----- MORALES LEE ([id number]) 1975 F Date Time Provider Department 06/12/19 [...] Pain Level: 7 Pain Location: Back-Lower Description: Throbbing;Burning;Tightne ss;Aching Duration Amount of Time: 15 Duration Units: Years Frequency: Continuous Intervention: Reposition;Positioning;Me dication;Imagery Aggravating Factors: walking, bending, any activity Alleviating [...] Swelling - Phenergan [Prometha* Swelling CURRENT MEDICATIONS: lisinopril-hydrochlorothi azide (PRINZIDE,ZESTORETIC) 20-12.5 mg per tablet Take 1 [...] [Z98.890] Order(s):PATIENT PLACED ON SPINE CARE PATH [[id number]] Order #: [id number]: 1 XR SCOLIOSIS PA STAND/LAT 2V [[id number]] Order #: [id number] FUTURE EMG(NEURO/NI) [[id number]] Order #: [id number]: 1 FUTURE CONSULT TO SPINE SURGERY [1248305] Order #: [id number]: 1 FUTURE Prescriptions as of 06/12/2019 Sig: [...] taking ZONISAMIDE 100 MG CAPSULE >> Talita Nadegeanmichel Dasilva 06/12/2019 8:08 AM >> VAHIDMICHEL TALITA DASILVA Jun 12, 2019 8:08 AM Not taking TOPIRAMATE 100 MG TABLET >> Talita Raya Ma 06/12/2019 8:07 AM >> VAHIDMICHEL TALITA DASILVA Jun 12, 2019 8:07 AM Not taking [...] MD on 06/12/[address] [facility] PROGRESSon 06-12-2019 PROGRESS HNO ID: [id number] Author: Robert Mittal (Rt) Service: Radiology Author Type: Ground Support Equipment Assembler Type: Progress Notes Filed: 06/12/2019 10:10 AM [...] 2019 10:[address] [facility] PROGRESS HNO ID: [id number] Author: Dixie Tee Service: ? Author Type: [...] Pain Level: 7 Pain Location: Back-Lower Description: Throbbing;Burning;Tightne ss;Aching Duration Amount of Time: 15 Duration Units: Years Frequency: Continuous Intervention: Reposition;Positioning;Me dication;Imagery Aggravating Factors: walking, bending, any activity Alleviating [...] Swelling - Phenergan [Prometha* Swelling CURRENT MEDICATIONS: lisinopril-hydrochlorothi azide (PRINZIDE,ZESTORETIC) 20-12.5 mg per tablet Take 1 [...] healed incisions. Chest: symmetric expansion Data Review: [facility] records reviewed Care everywhere Lumbar CT [...] June 12, 2019 TIME: 8:12 AM Normal [facility] [facility] SCOLIOSIS 2V PA STAND/LAT [...] changes and multilevel compression deformities as described. Securities Clerk: PSCB Transcribe Date/Time: Jun 12 2019 4:36P Dictated by : CAROLINA MOJICA MD This examination was interpreted and the report reviewed and electronically signed by: CAROLINA MOJICA MD on Jun 12 2019 4:39PM EST [id number] Normal [facility] PROGRESSon 05-14-2019 PROGRESS HNO ID: [id number] Author: Laury Levin Service: ? Author Type: Physician Conservation Educator Type: Progress Notes Filed: 05/14/2019 1:26 PM [...] to rule out cubital tunnel syndrome. Normal [facility] PROGRESSon 05-09-2019 PROGRESS HNO ID: [id number] Author: Kathia Kelly Service: ? Author Type: ? Type: Progress Notes Filed: 05/14/2019 1:26 PM Note Text: Patient name: Morales Lee Are you being referred by a [facility] Provider or Pain Management Provider at [facility]? No If answer is YES please schedule directly with surgeon, triage does not need to be completed. Is this a self-referral No If not, who is the Referring Provider: Dr. Hendricks/ [facility] MRI/CT/myelogram within 12 months: Yes If No , please refer to medical spine or PCP to complete above imaging, triage does not need to be completed Imaging viewable in Epic: No If not, please provide [phone] to fax in imaging reports for review. [...] will fax imaging report and op notes. [phone] Normal [facility] CT-CT C-SPINE WO CON IMPORTo n 02-13-2019 CT-CT C-SPINE WO CON IMPORT Images were obtained outside of [facility] [id number] Normal [facility] CT-CT L-SPINE WO CON IMPORTo n 02-13-2019 CT-CT L-SPINE WO CON IMPORT Images were obtained outside of [facility] [id number] Normal [facility] Vital Signs Date Time Vital Sign Value Performing Clinician Facility 05-14-2024 09:48-0400 Body height 157.5 cm Genny Orosco TITLE SPECIALIST Work Phone: [facility] 05-14-2024 09:48-0400 Body mass index (BMI) [Ratio] 34.75 kg/m2 Genny Orosco TITLE SPECIALIST Work Phone: [facility] 05-14-2024 09:48-0400 Body temperature 96.69 [degF] Genny Orosco TITLE SPECIALIST Work Phone: [facility] 05-14-2024 09:48-0400 Body weight 86.18 kg Genny Arizak TITLE SPECIALIST Work Phone: [facility] 05-14-2024 09:48-0400 Diastolic blood pressure 54 mm[Hg] Genny Barrosopatrick TITLE SPECIALIST Work Phone: [facility] 05-14-2024 09:48-0400 Heart rate 72 /min Genny Guidrytrick TITLE SPECIALIST Work Phone: [facility] 05-14-2024 09:48-0400 Systolic blood pressure 104 mm[Hg] Genny Guidrytrick TITLE SPECIALIST Work Phone: [facility] 06-07-2022 12:48-0400 Diastolic blood pressure 83 mm[Hg] No Pcp Required [facility] 06-07-2022 12:48-0400 Heart rate 67 /min No Pcp Required [facility] 06-07-2022 12:48-0400 Respiratory rate 16 /min No Pcp Required [facility] 06-07-2022 12:48-0400 SaO2% (BldA) [Mass fraction] 96 % No Pcp Required [facility] 06-07-2022 12:48-0400 Systolic blood pressure 148 mm[Hg] No Pcp Required [facility] 01-06-2022 10:51-0400 Blood Pressure Location NATALIA MANNING [facility] 01-06-2022 10:51-0400 Diastolic blood pressure 86 mm[Hg] NATALIA MANNING [facility] 01-06-2022 10:51-0400 Heart rate 86 /min NATALIA MANNING [facility] 01-06-2022 10:51-0400 Respiratory rate 16 /min NATALIA MANNING [facility] 01-06-2022 10:51-0400 Systolic blood pressure 132 mm[Hg] NATALIA MANNING [facility] 09-08-2021 14:15-0500 Body height 149.86 cm No PCP None MG-Neurosurgery- Ah uja Work Phone: 09-08-2021 14:15-0500 Body mass index (BMI) [Ratio] 36.96 kg/m2 No PCP None DC-Gfgbohyhixol-Ef uja Work Phone: 09-08-2021 14:15-0500 Body surface area Derived from formula 1.78 m2 No PCP None QQ-Bkinnmepdzbh-Cd uja Work Phone: 09-08-2021 14:15-0500 Body weight 83.01 kg No PCP None [facility]-Neurosurgery- Ah uja Work Phone: 09-08-2021 14:15-0500 Diastolic blood pressure 68 mm[Hg] No PCP None NV-Nyqbpznomgsi-Il uja Work Phone: 09-08-2021 14:15-0500 Heart rate 96 /min No PCP None [facility]-Neurosurgery- Ah uja Work Phone: 09-08-2021 14:15-0500 Respiratory rate 16 /min No PCP None [facility]-Neurosurgery -Ah uja Work Phone: 09-08-2021 14:15-0500 Systolic blood pressure 115 mm[Hg] No PCP None WS-Bojwrsgpmrmh-Ot uja Work Phone: 09-08-2021 14:15-0500 0 1 No PCP None MG-Neurosurgery- Ah uja Work Phone: Comment on above: [facility] 01-01-2021 16:46-0400 Heart rate 111 /min No Pcp Required [facility] 01-01-2021 16:46-0400 SaO2% (BldA) [Mass fraction] 95 % No Pcp Required [facility] 01-01-2021 14:00-0400 Body temperature 96.8 [degF] No Pcp Required [facility] 01-01-2021 14:00-0400 Diastolic blood pressure 77 mm[Hg] No Pcp Required [facility] 01-01-2021 14:00-0400 Respiratory rate 18 /min No Pcp Required [facility] 01-01-2021 14:00-0400 Systolic blood pressure 114 mm[Hg] No Pcp Required [facility] Encounters Encounter Date Encounter Type Care Provider Facility Start: 07-12-2024 End: 07-15-2024 Clinisync Result Encounter Generic External Data Provider [facility] External Department Unsolicited Start: 07-12-2024 End: 07-15-2024 Clinisync Result Encounter Generic External Data Provider [facility] External Department Unsolicited Start: 06-08-2024 End: 06-08-2024 ambulatory Kathrine Patel RN [facility] Start: 05-14-2024 End: 05-14-2024 Bamboo flowsheet Genny Orosco TITLE SPECIALIST Work Phone: [facility] Start: 05-14-2024 End: 05-22-2024 Clinisync Result Encounter Genny Arizak TITLE SPECIALIST Work Phone: [facility] External Department Unsolicited Start: 05-14-2024 End: 05-22-2024 Clinisync Result Encounter Genny Arizak TITLE SPECIALIST Work Phone: [facility] External Department Unsolicited Start: 05-14-2024 End: 05-14-2024 ambulatory GENNY GUIDYRTRICK Not Available Start: 05-14-2024 End: 05-14-2024 Office outpatient visit 15 minutes Genny Orosco TITLE SPECIALIST Work Phone: [facility] Comment on above: Intrinsic sphincter deficiency (ISD) (Primary Dx); Psychophysiological insomnia; Encounter for medication management; Dependence on wheelchair; Pressure injury of skin of buttock, unspecified injury stage, unspecified laterality Start: 04-24-2024 End: 04-24-2024 Refill Genny Orosco NP Work Phone: [facility] Comment on above: Chronic low back hina n, unspecified back pain laterality, unspecified whether sciatica present Start: 03-27-2024 End: 03-31-2024 Pre-admission assessment LEX FREDERICK [facility] Start: 03-26-2024 End: 04-07-2024 Pre-admission assessment LEX FREDERICK [facility] Start: 02-13-2024 End: 02-13-2024 ambulatory SHAIKH MICAH Not Available Start: 11-01-2023 End: 11-01-2023 ambulatory SHAIKH MICAH Not Available Start: 10-10-2023 Orders Only Shaikh Micah HARKINS Work Phone: [facility] Comment on above: Chronic low back hina n, unspecified back pain laterality, unspecified whether sciatica present (Primary Dx); Nausea in adult Start: 06-02-[address] Lex Frederick Facility:[id number] Start: 01-15-2023 End: 01-15-2023 ambulatory LALI BENITEZ Facility: Start: 01-13-2023 End: 01-13-2023 ambulatory IVON LAWS . Facility:H1 Start: 12-31-2022 ambulatory SHAIKH MICAH Facility: SHAHZAD Hurtado Start: 12-22-2022 End: 12-22-2022 ambulatory SHAIKH Shirley OBRIEN Facility:H1 Start: 12-08-2022 AUDIT No PCP None [facility]Neurosu [facility]gery-[place] [facility] [address] [place] Work Phone: Start: 12-08-2022 Chart Update No PCP None [facility]-Neurosu [facility]gery-[facility] [address] [place] Work Phone: Start: 11-26-2022 End: 11-26-2022 Patient encounter procedure Danya Bingham [facility] Start: 11-22-2022 ambulatory MENDOSA H FAWWAD Facilit y:H1 Start: 11-09-2022 End: 11-09-[address] DEVANTE ELIZONDO . Facility:H1 Start: 10-15-2022 End: 10-15-2022 ambulatory KYRA SILVA . Facility:H1 Start: 09-24-2022 End: 09-24-2022 Patient encounter procedure Danya Bingham [facility] Start: 09-01-2022 Encounter for preprocedural laboratory examination DANYA BINGHAM . [facility] Start: 08-25-2022 End: 08-25-2022 ambulatory MENDOSA H FAWWAD Facility:H1 Start: 08-24-2022 End: 08-25-2022 ambulatory MENDOSA H FAWWAD Facility:H1 Start: 08-24-2022 End: 08-25-2022 Encounter for preprocedural laboratory examination MENDOSA H FAWWAD Facility:H1 Start: 08-21-2022 ambulatory MENDOSA H FAWWAD Facilit y:H1 Start: 07-16-2022 End: 07-16-2022 Patient encounter procedure Danya Bingham [facility] [employer] Start: 06-06-2022 End: 06-07-2022 Emergency department patient visit Yony Aguirre [facility] Adult ED Blue 45 Start: 05-31-2022 End: 05-31-[address] ALEXANDRU SORIA . Facility:H1 Start: 05-19-2022 End: 05-19-2022 Off-Site Danya Bingham [facility] Start: 05-07-2022 End: 05-07-2022 ambulatory SHAIKH Shirley [...] 02-04-2022 Off-Site Danya Bingham [facility] Start: 01-11-2022 Chart Update No PCP None MG-Neurosu [facility] [place] Work Phone: Start: 01-11-2022 End: 01-11-2022 Patient encounter procedure Danya Bingham [facility] Start: 01-07-2022 AUDIT No PCP None MG-Neurosu [facility] [address] Work Phone: Start: 01-06-2022 End: 01-06-2022 Patient encounter procedure NATALIA MANNING [facility] Start: 10-13-2021 AUDIT No PCP None MG-Neurosu [facility] Work Phone: Start: 09-29-2021 AUDIT No PCP None MG-Gastroe nterology-[facility] Work Phone: Start: 09-15-2021 End: 10-02-2021 Evaluation and management of inpatient Dr. LEX FREDERICK Facility:[facility] Start: 09-09-2021 AUDIT No PCP [facility] Work Phone: Start: 09-08-2021 Office outpatient vi sit 40 minutes No PCP None UJ-Dkhnaxqftnpt-Jllin Work Phone: Start: 05-05-2021 Postop follow up vis it related to original px No PCP None PU-Wfgmuptwxyaz-HWRFH Work Phone: Start: 12-26-2020 End: 01-01-2021 Evaluation and management of inpatient Lex Frederick [facility] Kaley [id number] Rm [id number] Preoperative state No PCP None MG-Neuros urgery-[facility] Work Phone: Procedures Date Procedure Procedure Detail Performing Clinician Start: 07-12-2024 Bacteria identified in Urine by Culture Generic External Data Provider Start: 05-18-2024 Drug test prsmv read direct optical obs pr date Genny Arizak TITLE SPECIALIST Work Phone: Start: 05-14-2024 COMPLIANCE DRUG ANAL YSIS, UR Genny Orosco TITLE SPECIALIST Work Phone: Start: 09-21-[address] EFRAIN FREDERICK Comment on above: Performed By: #### A FPA3 #### [facility] [address] [place] [address] Start: 09-21-[address] EFRAIN FREDERICK Comment on above: Order Comment: CUADRAJacque ESPINO, 09/21/2021 05:08TEST TYPE + SCREEN WAS CANCELLED, 09/21/2021 05:06 NO PHLEB ID ON TUBE. Result Comment: CALL ED MERA ESPINO, 09/21/2021 05:08 Performed By: #### A FPA3 #### [facility] [address] [place] [address] Start: 09-17-[address] EFRAIN FREDERICK Comment on above: Performed By: #### T +S #### [facility] [address] [place] [address] Start: 12-27-2020 End: 12-28-2020 Release Blood Product-Packed Red Blood Cells Devante Nunez Start: 12-26-2020 Renal function 2000 panel - Serum or Plasma Nabil Awan Appendectomy NATALIA MANNING Cholecystectomy NATALIA CHAMBERS Hernia NATALIA MANNING Hysterectomy NATALIA MANINNG mylogr NATALIA MANNING Plan of Treatment Date Care Activity Detail Author Start: 02-21-2030 DTaP,Tdap and Td Vaccines (2 - Td or Tdap) DTaP,Tdap and Td Vaccines (2 - Td or Tdap) [facility] Start: 06-13-2024 End: 06-13-2024 Patient encounter procedure 06/13/2024 9:20 AM EDT Office Visit [facility] [address] [place] [id number] Lian Greer, BELLOWS CHARGER ASSEMBLER-LAST REMODELER REPAIRER [address] [place] [address] [facility] Start: 05-14-2024 End: 05-14-2024 Patient encounter procedure 05/14/2024 9:30 AM EDT Office Visit [facility] [address] [place] [address] Genny Orosco, TAWANNA [address] [place] [address] [facility] Start: 05-06-2024 Influenza vaccination [facility] Start: 10-17-2023 End: 10-17-2023 Patient encounter procedure 10/17/2023 6:30 PM EST Office Visit [facility] [address] [place] [address] Shaikh Obrien MD [address] [place] [id number] [facility] Start: 2023 Administration of varicella zoster vaccine Zoster (Shingles) Vaccine (1 of 2) [facility] Start: 05-06-2023 Influenza vaccination Influenza Vacc ine (#1) [facility] Start: 11-03-2021 POV, Provider: Lex Frederick, Status: Pen, Time: 2:00 PM POV, Provider: Lex Frederick, Status: Pen, Time: 2:00 PM TO-Zgwbnsjhfqhtlejk-T [facility] Work Phone: Start: 10-07-2021 Admission to [facility] RNVISIT, Provider: NURSE VISIT ASHLEY 5TH,MGNEUROSURGERY, Status: Pen, Time: 10:15 AM CA-Pbjodaglhlforazz-K [facility] Work Phone: Start: 09-18-2021 [facility] Provider: Lex Frederick, Status: Pen, Time: 8:00 AM [facility] Provider: Lex Frederick, Status: Pen, Time: 8:00 AM IO-Jdhdmerogoay-Bwjui Work Phone: Start: 01-08-2021 Patient encounter procedure Neurosurgery M[facility]ul Start: 12-31-2020 End: 01-01-2022 [facility] Comment on above: please place at beds geraldine for drain removal Start: 12-26-2020 End: 12-27-2021 Naloxone Injectable 0.4 mg IntraVenous Push Once ; (NARCAN)DOSE = 0.2 mg IntraVenous Push Once, PRN patient is unarousable, and respiratory rate lessClinician Notes: HOLD ACCESS CONTROL OFFICER Infusion and notify H.O. immediately Start: 26-Dec-2020 End: 26-Dec-2021 Ordered: 26-Dec-2020 Nabil Awan Intent Comments: HOLD ACCESS CONTROL OFFICER Infusion and notify H.O. immediately [facility] Comment on above: HOLD ACCESS CONTROL OFFICER Infusion an d notify H.O. immediately Start: 2013 Screening for malign ant neoplasm of breast Mammogram [facility] Start: 2003 Screening for malign ant neoplasm of cervix [facility] Start: 1994 Screening for malign ant neoplasm of cervix Pap Smear [facility] Start: 1991 Adult BMI Screening Adult BMI Screen ing [facility] Start: 1985 Depression Screening Depression Scre ening [facility] Start: 1985 Tobacco Screening Tobacco Screening [facility] Start: 1973 Screening for malign ant neoplasm of colon [facility] Bacteria identified in Urine by Culture URINE CULTURE, ROUTINE Lab Routine 07/12/2024 2:30 PM EST [facility] Immunizations Immunization Date Immunization Notes Care Provider Delfino chu 02-22-2020 tetanus toxoid, redu luis diphtheria toxoid, and acellular pertussis vaccine, adsorbed Danya Bingham [facility] 12-05-2018 hepatitis A vaccine, adult dosage Danya Lujacque [facility] Payers Date Payer Category Payer [facility] er [id number] 2012 Unknown 1973 Unknown [id number] [id number] .356 1973 Unknown [id number] 2.16.840.1.019826.3.579.2 .356 1973 Unknown [id number] 2.16.840.1.553454.3.579.2 .593 1973 Unknown [id number] 2.16.840.1.923025.3.579.2 .593 1973 Unknown [id number] 2.16.840.1.527093.3.579.2 .593 1973 Unknown [id number] 2.16.840.1.876376.3.579.2 .593 1973 Unknown [id number] 2.16.840.1.541276.3.579.2 .593 1973 Unknown [id number] 2.16.840.1.894306.3.579.2 .593 1973 Unknown [id number] 2.16.840.1.960171.3.579.2 .593 1973 Unknown [id number] 2.16.840.1.316113.3.579.2 .593 1973 Unknown [id number] 2.16.840.1.172364.3.579.2 .593 1973 Unknown [id number] 2.16.840.1.528656.3.579.2 .593 1973 Unknown [id number] 2.16.840.1.318981.3.579.2 .593 1973 Unknown [id number] 2.16.840.1.443505.3.579.2 .593 1973 Unknown [id number] 2.16.840.1.430487.3.579.2 .593 1973 Unknown [id number] 2.16.840.1.444143.3.579.2 .593 1973 Unknown [id number] 2.16.840.1.103184.3.579.2 .593 1973 Unknown [id number] 2.16.840.1.292410.3.579.2 .593 1973 Unknown [id number] 2.16.840.1.299244.3.579.2 .593 1973 Unknown [id number] 2.16.840.1.755278.3.579.2 .1046 1973 Unknown [id number] 2.16.840.1.227192.3.579.2 .727 1973 Unknown [id number] 2.16.840.1.081010.3.579.2 .1259 1973 Unknown [id number] 2.16.840.1.414224.3.579.2 .1259 1973 Unknown [id number] 2.16.840.1.204445.3.579.2 .1259 1959 Unknown [id number] Social History Date Type Detail Facility [facility] Tobacco smoking consumption unknown [facility] Start: 08-01-2023 End: 02-13-2024 History of drug use History of drug use HF-Pbntvwforajb-MHDJ C Work Phone: Start: 01-05-2016 End: 02-13-2024 Tobacco smoking status Smokes tobacco daily (finding) [facility] Comment on above: 1ppd 1ppd Start: 08-08-2023 End: 02-13-2024 Sex Assigned At Female [facility] History of tobacco use Cigarette Smoker [facility] Start: 08-08-2023 End: 02-13-2024 Alcohol intake Lifetime non-drinker (finding) [facility] Start: 1975 Sex Assigned At Not on file [facility] Childcare Unknown [facility] History of tobacco use Passive smoker [facility] Medical Equipment Procedure Code Equipment Code Equipment Origin al Text Equipment Identifier Dates 2 EA, SubLingual , Daily, Refill(s) 0 Start: 01-05-2016 2 EA, SubLingual , Daily, Refill(s) 0 Start: 01-05-2016 2 EA, SubLingual , Daily, Refill(s) 0 Start: 01-05-2016 Functional Status Date Assessment Result Facility 11-26-2022 Functional Status N/A [facility] 07-16-2022 Functional Status N/A [facility] Functional observable [facility] Mental Status Date Assessment Result Facility 12-29-2020 Cognitive functi ons [id number] [facility] Clinical Notes 12-26-2020 to 06-08-2024 Telephone Encounter - Kathrine Patel RN - 06/08/2024 3:24 PM EDTTelephone Encounter - Kathrine Patel RN - 06/08/2024 3:24 PM EDTTelephone Encounter - Kathrine Patel RN - 06/08/2024 3:24 PM EDT Note Date & Type Note Facility 06-08-2024 Miscellaneous Notes ----- Message from [employer] sent at 06/08/2024 3:14 PM EDT ----- Contract: [facility] Lidoderm Patch from [facility], not sure if can use Contract: [facility] Patient is not a current patient of this office informed that we cannnot give advice without this. Will call her insurance company. No triage done Reason for Disposition Caller has cancelled the call before the first contact Protocols used: No Contact or Duplicate Contact Call-A-AH documented in this encounter [employer] 06-08-2024 Telephone encounter Note ----- Message from [employer] sent at 06/08/2024 3:14 PM EDT ----- Contract: [facility] Lidoderm Patch from [facility], not sure if can use [facility] 06-08-2024 Telephone encounter Note Contract: [facility] Patient is not a current patient of this office informed that we cannnot give advice without this. Will call her insurance company. No triage done [facility] 06-08-2024 Telephone encounter Note Reason for Disposition Caller has cancelled the call before the first contact Protocols used: No Contact or Duplicate Contact Call-A-AH [facility] 05-15-2024 History of Presen t illness Narrative Associated Problem(s): Pressure ulcer, buttock Patient is wheelchair bound with limited mobility due to chronic LBP, b/l LE weakness. Has associated fecal and urinary incontinence. Associated Problem(s): Intrinsic sphincter deficiency (ISD) She has extensive hx of multiple surgeries in lumbar region and ever since last surgery, she is wheelchair bound, has fecal and urinary incontinence. Alvares catheter in place. Associated Problem(s): Dependence on wheelchair Ambulatory dysfunction - wheelchair bound. Can stand on her feet briefly. Unable to ambulate ever since her back surgery that was complicated by cord compression. Patient has bilateral LE weakness, numbness, chronic LBP and unsteadiness. She needs wheelchair to perform her ADLs, attend physician appointments and anticipated to need it assisted and lifelong Images from the original note were not included. Subjective Patient ID: Morales Lee is a 48 y.o. female who presents for Hospital Follow-up. Hospital follow up Was seen in Ed on 05/06/2024 for cough and alvares catheter concerns. Pt left AMA. ER note reports Pt has unhealing ulcers but declines having home health due to cost. During this OV: Pt does not make clear eye contact during visit. Frequently closes eyes and appears to doze off while talking. Pt is adamant she can care for herself at home and does not need wound care or home health care services. Pt states she covers wounds on buttocks with clean dry dressings. States her daughter in law is an CLUB ATTENDANT and helps care for her. When I discussed with patient her chronic neurological issues including spinal cord compression, stenosis and myelopathies, pt states she is no longer seeing neuro because after what the [place] did to me, I am not seeing another neurosurgeon or neurologist. I have a hard time trusting doctors, and he messed me up. When I asked pt to please explain what happened so I could have an understanding of her history, she brokenly explained her past medical history, intermittently dozing off. Then stated she was still seeing neurology but he said there was nothing more he could do for her. I asked pt what her goals were regarding functionality and quality of life, she did not answer directly. Pt then began to discuss how she became addicted to pain medication in the past from her spinal surgery and now takes suboxone. When I asked pt about her muscle spasms, and neuropathy, she went back to discussing suboxone and being addicted to pain medication in the past. I asked pt if she had ever seen pain management, she went on a tangent regarding her current medications and again stated wound care can't do anything for me that we can't do at home. I attempted redirecting pt several times but was unsuccessful getting a clear history or direct answers to medical questions. I explained to patient CSA and drug screen would need to be done yearly as she was prescribed controlled substances. Pt stated understanding. At end of OV patient then stated I'm not saying I wont see wound care, I just don't think they can do anything more for me. It is noted I was unable to view wounds on buttocks or anywhere else; Was able to visualize vascular changes to bilateral lower extremities. Reluctant for wound care services at this time, despite unhealing wounds. Expressed to pt the risks associated with not treating wounds appropriately. Will place referral- pt can opt to go if she chooses. Pt was unsure during visit which medications she needed refills of, advised to call in and I will send refills in. Review of Systems Constitutional: Negative for activity change, appetite change, chills, diaphoresis, fatigue, fever and unexpected weight change. HENT: Negative for congestion, ear pain, rhinorrhea, sinus pressure, sinus pain, sneezing, sore throat, trouble swallowing and voice change. Eyes: Negative for visual disturbance. Respiratory: Negative for cough, chest tightness, shortness of breath and wheezing. Cardiovascular: Negative for chest pain, palpitations and leg swelling. Gastrointestinal: Negative for abdominal distention, abdominal pain, blood in stool, constipation, diarrhea and vomiting. Genitourinary: Negative for decreased urine volume, dysuria, flank pain, frequency, hematuria and urgency. Alvares catheter in place Musculoskeletal: Negative for arthralgias, gait problem, joint swelling and myalgias. Skin: Positive for color change and wound. Negative for rash. Neurological: Negative for dizziness, tremors, syncope, weakness, light-headedness and headaches. Psychiatric/Behavioral: Negative for decreased concentration and suicidal ideas. The patient is not nervous/anxious. Hematological: Does not bruise/bleed easily. Endocrine: Negative for cold intolerance, heat intolerance, polydipsia, polyphagia and polyuria. Objective Physical Exam Vitals reviewed. Constitutional: Comments: Poorly groomed, disheveled appearance. HENT: Head: Normocephalic and atraumatic. Right Ear: Tympanic membrane normal. Left Ear: Tympanic membrane normal. Nose: Nose normal. Mouth/Throat: Mouth: Mucous membranes are moist. Pharynx: Oropharynx is clear. Eyes: Pupils: Pupils are equal, round, and reactive to light. Cardiovascular: Rate and Rhythm: Normal rate and regular rhythm. Pulses: Normal pulses. Heart sounds: Normal heart sounds. Pulmonary: Effort: Pulmonary effort is normal. Breath sounds: Normal breath sounds. Abdominal: General: Abdomen is flat. Bowel sounds are normal. Palpations: Abdomen is soft. Genitourinary: Comments: Alvares catheter noted hanging from patients clothing. Sediment observed in catheter tubing; Musculoskeletal: General: Normal range of motion. Cervical back: Normal range of motion. Right lower leg: Edema present. Left lower leg: Edema present. Skin: General: Skin is warm and dry. Capillary Refill: Capillary refill takes less than 2 seconds. Coloration: Skin is sallow. Neurological: General: No focal deficit present. Mental Status: She is alert and oriented to person, place, and time. Motor: Weakness present. Psychiatric: Attention and Perception: She is inattentive. Mood and Affect: Affect is flat. Speech: Speech is tangential. Behavior: Behavior is withdrawn. Assessment/Plan Problem List Items Addressed This Visit Intrinsic sphincter deficiency (ISD) - Primary She has extensive hx of multiple surgeries in lumbar region and ever since last surgery, she is wheelchair bound, has fecal and urinary incontinence. Alvares catheter in place. Dependence on wheelchair Ambulatory dysfunction - wheelchair bound. Can stand on her feet briefly. Unable to ambulate ever since her back surgery that was complicated by cord compression. Patient has bilateral LE weakness, numbness, chronic LBP and unsteadiness. She needs wheelchair to perform her ADLs, attend physician appointments and anticipated to need it assisted and lifelong Psychophysiological insomnia Encounter for medication management Relevant Orders Rapid drug screen, urine Pressure ulcer, buttock Patient is wheelchair bound with limited mobility due to chronic LBP, b/l LE weakness. Has associated fecal and urinary incontinence. Relevant Orders Ambulatory referral to Wound Clinic Rapid drug screen, urine Caroline documented in this encounter [facility] 04-24-2024 Telephone encounter Note Patient would like a refill of her Valium. Was from [facility] but did not transfer to [employer]. [facility] 04-24-2024 Miscellaneous Notes Patient would like a refill of her Valium. Was from [facility] [employer] but did not transfer to [employer]. documented in this encounter [facility] 11-26-2022 Hospital Discharg e instructions Patient Education [...] 10/01/2017 Document Revised: 12/14/2019 Document Reviewed: 10/01/2017 [employer] Patient Education 2019 [employer]. Follow Up Care 10/14/2022 11:11:52 With:Danya Bingham MD, URL, URO Address: When: Unknown [facility] 09-23-2022 Hospital Discharg e [...] including vitamins, herbs, eye drops, creams, and lfac-hma-gmcqgcm medicines. Any problems you or family members [...] provider tells you to take them. Taking kchz-aiz-hpftsvp medicines, vitamins, herbs, and supplements. General instructions [...] Document Reviewed: 10/08/2019 Elsevier Patient Education 2019 [employer]. Follow Up Care 08/31/2022 10:49:10 With:Zachery HARKINS, CAROLEE Anderson, URO Address: When: Unknown [facility] 07-16-2022 Hospital Discharg e instructions Patient [...] (electrical nerve stimulation). For women, using a chief medical director to prevent urine leaks. This [...] right after experiencing incontinence. General instructions Take ndfz-bht-axfyboq and prescription medicines only as told by [...] 09/29/2005 Document Revised: 09/01/2018 Document Reviewed: 12/01/2017 [employer] Patient Education 2020 [employer]. Follow Up Care 06/15/2022 11:30:52 With:Zachery HARKINS, CAROLEE Anderson, URO Address: When: Unknown [facility] 02-04-2022 Hospital Discharg e instructions Patient [...] (electrical nerve stimulation). For women, using a chief medical director to prevent urine leaks. This [...] right after experiencing incontinence. General instructions Take euza-vqn-dolbuvm and prescription medicines only as told by [...] 09/29/2005 Document Revised: 09/01/2018 Document Reviewed: 12/01/2017 [employer] Patient Education 2020 [employer]. 02/04/2022 16:23:10 Calorie Counting for Weight Loss [...] 08/22/2006 Document Revised: 05/11/2019 Document Reviewed: 07/22/2017 [employer] Patient Education 2020 [employer]. Follow Up Care 02/04/2022 13:28:46 With:Danya Bingham MD, URL, URO Address: When: Unknown [facility] 01-11-2022 Evaluation + Plan note [...] and Plan Diagnosis Bowel and bladder incontinence (PLF95-YN R32, Billing Diagnosis, Medical). Incontinence without sensory awareness (DOA16-FJ N39.42, Working, Medical). Diagnosis Bowel and bladder incontinence (FBR02-FB R32, Billing Diagnosis, Medical). Incontinence without sensory awareness (ITM68-IA N39.42, Working, Medical). Addendum by Danya Bingham MD on January 11, 2022 10:23 EDT Post procedure diagnosis: Intrinsic sphincter deficiency, acontractile detrusor [facility]05-09-2022 Hospital Discharge instructions Patient Education [...] 01/06/2022 11:41:34 With:Danya Bingham Address: [address] [address]- [phone] Business (1) When: Unknown Comments:Call for followup appointment in 2-3 weeks With:Danya Bingham Address:Unknown When: Unknown [facility]05-04-2022 Hospital Discharge instructions Patient Education [...] clinics. Check with your local health department. [facility], where you would pay only what you can afford. To find one near you, check this website: [email or web address] [facility]. These are part of [...] information Learn more about cervical cancer from: [employer]: www.acog.org/Patients/FAQs/Cervical-Cancer [employer]: www.cancer.org/cancer/cervicalcancer/ U.S. Centers for Disease [...] 09/05/2016 Document Revised: 09/23/2018 Document Reviewed: 04/19/2017 [employer] Patient Education 2020 [employer]. Follow Up Care 11/20/2021 10:16:51 With:NIGEL GREEN, NATALIA Santillan, URL Address: [address] [place] [address]. [place] [address] When:01/13/2022 [facility] 01-28-2022 NoteSend Summary: Discharge Summary Providers: [...] Care - New Vital Signs: T PRBPSpO2 [id number]/6394% Date/Time10/02 8: 8: 8: 8: 8:00 Range(36.1C [...] placement 09/23 Patient transitioned from post op ACCESS CONTROL OFFICER to oral pain regimen 09/24 Fitted for [...] discharge; ok for danya to be removed 10/07. PT/OT evaluated. Patient was discharged to home [...] twist. Instead, bend at knees to order picker/assembler objects (more content not included)...[facility]01-26-2022 NoteThis report has been cancelled.[facility]01-17-2022 NotePROCEDURE DETAILS Postoperative Diagnosis: lumbar stenosis Surgeon: Dr. Lex Frederick Resident/Fellow/Other Conservation Educator: Chery Awan Procedure: posterior L4-L5 decompression posterior [...] Attestation: Note Completion: I am a:Resident/Fellow Attending SarahiI was present for the entire procedure Electronic Signatures: Lex Frederick) (Signed 22-Sep-2021 10:54) Authored: Post-Operative Note, Chart Review, Note Completion Co-Signer: Post-Operative Note, Chart Review, Note Completion Nabil Awan (Resident)) (Signed 21-Sep-2021 15:38) Authored: Post-Operative Note, Chart Review, Note Completion Last Updated: 22-Sep-2021 10:54 by Lex Frederick)[facility]01-17-2022 NoteHistory & Physical Reviewed: /Lactating: Are [...] Note Completion: I am a: Resident/Fellow Attending AttkadeemI saw and evaluated the patient. I personally obtained the schofield and critical portions of the history and physical exam or was physically present for schofield and critical portions performed by the resident/fellow. I reviewed the resident/fellows documentation and discussed the patient with the resident/fellow. I agree with the resident/fellows medical decision making as documented in the note. I personally evaluated the patient [id number] Electronic Signatures: Lex Frederick) (Signed 21-Sep-2021 11:50) Authored: Note Completion Co-Signer: History & Physical Reviewed, ERAS, Consent, Note Completion Jaya Mosquera (Resident)) (Signed 21-Sep-2021 02:51) Authored: History & Physical Reviewed, ERAS, Consent, Note Completion Last Updated: 21-Sep-2021 11:50 by Lex Frederick () References: 1. Data Referenced From MRI Safety Screen v2 19-Sep-2021 19:00[facility] NoteRehab: Info: Mode of Treatmentoccupational therapy; attempted; OT evaluation initiated with home set-up obtained (1st floor set up/ 0 step entry, lives with , tub shower with chair); Pt with low BP upon arrival 79/54. Second BP reading taken at 71/51. RN notified, further evaluation deferred at this time. OT to reattempt when pt medically appropriate. 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 Exploration of spinal [...] performed and the images transferred to the [employer] system for use in intraoperative image-guided computer-assisted [...] using the torque dri (more content not included)...[facility]01-14-2022 NoteThis report has been cancelled.[facility]01-14-2022 NoteHistory & Physical Reviewed: /Lactating: Are [...] the note. I personally evaluated the patient [id number] Electronic Signatures: Fidel Maciel (Resident)) (Signed 17-Sep-2021 22:49) Authored: History & Physical Reviewed, ERAS, Consent, Note Completion Lex Frederick) (Signed 19-Sep-2021 10:17) Authored: Note Completion Co-Signer: History & Physical Reviewed, ERAS, Consent, Note Completion Last Updated: 19-Sep-2021 10:17 by Lex Frederick) References: 1. Data Referenced From MRI Safety Screen v2 17-Sep-2021 11:28[facility]01[facility] NoteReferral Information: Consult requested by (Attending [...] be able to m (more content not included)...[facility]01-11-2022 NoteHistory of Present Illness: /Lactating: Are [...] the note. I personally evaluated the patient [id number] Electronic Signatures: Fidel Maciel (Resident)) (Signed 15-Sep-2021 [...] Plan Last Updated: 16-Sep-2021 10:20 by Lex Frederick)[facility]04-23-2021 History of Present illness Narrative* I just had the pleasure of seeing Mrs. Jesus villarreal in the Neurosurgery Spine Clinic at the [facility]. She is a very pleasant 46-year-old [...] Ms. JESUS hollis. * Lex Frederick MD, [facility], [facility] * Director - Minimally Invasive Spine Surgery * [facility] * Solid Waste Division Supervisor of Neurological Surgery * [employer] * [place], [place] * Some of this note was completed using [employer] voice recognition technology and sometimes the software misinterprets words. This may include unintended errors with respect to translation of words, typographical errors or grammar errors which may not have been identified prior to finalization of the chart note. Please take this into account when reading this note. MA-Tfwuctfmnyri-Xzgdu Work Phone: [phone]) 722-679304-23-2021 Reason for referral (narrative)* Reason for Referral: Patient s/p posterior bilateral L1 transpedicular decompression, posterior T7-T8, T8-T9, T9-T10, T0-T11, T11-T12, T12-L1 hutton hernandez osteotomies, Posterior T5-L4 instrumentation and fusion on 12/26 [facility] Future Appointments Appointment Date:01/07/2022 11:00:00 AM Scheduled Provider: [facility] Appointment Type:Urology CALL PAT FT Appointment Date:01/11/2022 08:00:00 AM Scheduled Provider: Location:[facility] Appointment Type:Urology FT Appointment Date:01/11/2022 09:00:00 AM Scheduled Provider: Location:[facility] Appointment Type:Urology FT [facility] evaluation + Plan [facility] Evaluation + Plan note Future Appointments Appointment Date:04/06/2024 12:00:00 PM Scheduled Provider: Location:.MRI Appointment Type:MRI Spine (FT) Appointment Date:04/06/2024 12:00:00 PM Scheduled Provider: Location:[facility] Appointment Type:Surgery FT Future Scheduled Tests Radiology* MRI Spine Cervical w/o Contrast 04/06/24 * MRI Spine Lumbar w/o Contrast 04/06/24 * MRI Spine Thoracic w/o Contrast 04/06/24 [facility] Evaluation note* Neurological: nedudkr7lkr 5/5 except hg/io4+ble 5/5incision cdiHead/Neck: Ox3, awake, alertBUE 5 prox, HG/IO4+BLE HF/KE/DF/PF/EHL 5 [facility]* Constitutional: in no acute distressSkin: Well perfusedEyes: OU 3RHead/Neck: atraumatic, normocephal icRespiratory/Thorax: airway intact, good chest expansionCardiovascular: normal rate, regular rhythmGastrointestinal: non-tenderNeurological: NAD, A&Po0Oaxnfff Nerves II-XII: PERRL, EOMI, Face symmetric, Facial SILT, Palate/Tongue midline and symmetric, shoulder shrugs symmetric, hearing intact to finger rubs bilaterallyMotor: RUE D5, B5, T5, HG5, IO5LUE D5, B5, T5, HG5, IO5RLE HF 4+, KE4+, PF4-, DF3LLE HF 4+, KE4+, PF3, DF4-Sensation: SILT throughout all extremitiesPsychological: mood appropriate [facility] [place] [facility]* Diagnosis Chronic low back pain, unspecified back pain laterality, unspecified whether sciatica present- Primary Nausea in adult [facility] Diagnosis Intrinsic sphincter deficiency (ISD)- Primary Psychophysiological insomnia Persistent disorder of initiating or maintaining sleep Encounter for medication management Dependence on wheelchair Pressure injury of skin of buttock, unspecified injury stage, unspecified laterality [facility]* Diagnosis Chronic low back pain, unspecified back pain laterality, unspecified whether sciatica present [facility] encounter [facility] Narrative No data available for this section [facility] Discharge instructions* Activity:activity as tolerated. May [...] Certification:Home Care Services Needed: yesSkilled Disciplines Ordered: RN/BEFORE SCHOOL BABYSITTER, PT, OTFace to Face Encounter Completed: yesDate of Encounter: [id number] Necessity for Homecare (based on clinical findings): [...] washing dishes, & loading the dryer or manager recovery until cleared by MD. * Wound Care:Inspect [...] - Neurosurgeon:Physician/Dept/Service: NeurosurgeonDr Josephuled Date/Time: 08-Jan-2021 10:40Location: [facility] [place] [address] [place], [place]Phone Number: [phone]: 2 week postop/wound check visit; Bring Insurance Card and Photo ID [facility] No data available for this section [facility] InstructionsNot on filedocumented in this encounter [facility] SystemProgress note No data available for this section [facility] reason for referral (narrative) , urinary incontinence, neurogenic bladder, open bladder neck, possible SP tube placement Referred by: Zachery HARKINS, Danya Rhodes [facility] reason for referral (narrative)* Consultation (Routine) - Authorized Specialty Diagnoses / Procedures Referred By Pablo saavedra Referred To Contact Wound Care Diagnoses Pressure injury of skin of buttock, unspecified injury stage, unspecified laterality Procedures [place] OFFICE/OUTPATIENT NEW HIGH MDM 60 MINUTES Genny Orosco NP [address] [place] [phone] Pérez Pederson MD [address], [place] [address] Referral ID Status Reason Start Date Expiration Date Visits Requested Visits Authorized [id number] Authorized Specialty Services Required 05/15/2024 11/11/2024 1 1 Scheduling Instructions Please include most recent ER visit and OV note. [facility] Summary Purpose Family History Unknown Family Member [...] section and content) DATE CREATED AUTHOR 06/20/2019 [facility] DATE CREATED AUTHOR AUTHOR'S ORGANIZ ATION 06/20/2019 [facility] DATE CREATED AUTHOR AUTHOR'S ORGANIZ ATION 07/26/2019 [facility] DATE CREATED AUTHOR AUTHOR'S ORGANIZ ATION 12/29/2020 [facility] DATE CREATED AUTHOR AUTHOR'S ORGANIZ ATION 09/16/2021 [facility] DATE CREATED AUTHOR AUTHOR'S ORGANIZ ATION 11/25/2021 [facility] DATE CREATED AUTHOR AUTHOR'S ORGANIZ ATION 12/10/2021 [facility] [place] DATE CREATED AUTHOR AUTHOR'S ORGANIZ ATION 08/06/2022 [facility] ical Center DATE CREATED AUTHOR AUTHOR'S ORGANIZ ATION 01/17/2023 [facility] DATE CREATED AUTHOR AUTHOR'S ORGANIZ ATION 06/09/2023 [facility] DATE CREATED AUTHOR AUTHOR'S ORGANIZ ATION 12/29/2023 [facility] DATE CREATED AUTHOR AUTHOR'S ORGANIZ ATION 05/15/2024 [facility] dical Specialists EPIC <item><item> Privacy Markings (unrecogniz [...] Care Team (unrecognized sect ion and content) Leaf Sucker Operator Relationship Specialty Start Date End Date Shaikh Obrien MD PCP - General Internal Medicine 08/05/23 Leaf Sucker Operator Relationship Specialty Start Date End Date Shaikh Obrien MD PCP - General Internal Medicine 11/15/22 Leaf Sucker Operator Relationship Specialty Start Date End Date Unallocated, Lobo Juarez MD [address] [place] [address] PCP - General Family Medicine 06/04/24 Genny Orosco NP [address] [place] [phone] Nurse Practitioner Family Medicine 04/12/24 Leaf Sucker Operator Relationship Specialty Start Date End Date Kostas Ching MD [address] [place] [phone] PCP - General Family Medicine 04/12/24 Genny Orosco NP [address] [place] [address] Nurse Practitioner Family Medicine 04/12/24 Leaf Sucker Operator Relationship Specialty Start Date End Date Kostas Ching MD [address] [place] [phone] PCP - General Family Medicine 04/12/24 Genny Orosco NP [address] [place] [phone] Nurse Practitioner Family Medicine 04/12/24 Leaf Sucker Operator Relationship Specialty Start Date End Date Kostas Ching MD [address] [place] [phone] PCP - General Family Medicine 04/12/24 Genny Orosco NP [address] [place] [phone] Nurse Practitioner Family [facility] 04/12/24 Leaf Sucker Operator Relationship Specialty Start Date End Date Kostas Ching MD [address] [place] [phone] PCP - General Family Medicine 04/12/24 Genny Orosco NP [address] [place] [phone] Nurse Practitioner Family Medicine 04/12/24 Reason for Visit (unrecogniz ed section and content) Reason Comments Hospital Follow-up Reason Onset Date Comments Med Refill 04/24/2024 FOR RECORDS PERTAINING TO PATIENTS WHO ARE [...] BE BASED ON THE PRIMARY CLINICAL RECORDS. [facility]. provides no warranty or guarantee of the accuracy or completeness of information in this document.
--- NOTE | 2024-08-26 07:00 | ED.GENADUL1 ---
HPI HPI - General Adult General Chief complaint: Skin/Abscess/Foreign Body Stated complaint: lump on leg Time Seen by Provider: 08/26/24 06:28 Source: patient Mode of arrival: ambulance Limitations: no limitations History of Present Illness HPI narrative: 49-year-old female to the emergency department chief complaint of increasing redness and pain to her left lower extremity. Patient reports 2 weeks ago she noticed a area of redness and warmth near her groin. She reports that steadily worsened since that time. She reports it is now down to her lower leg. She is concerned she may have an infection and decided to come to the emergency department today for evaluation. She reports that she has some increased malaise. No other symptoms. She is otherwise been at her baseline health. Related Data Home Medications ?Medication ?Instructions ?Recorded ?Confirmed buprenorphine 8 mg-naloxone 2 mg 2.5 film sublingual Q24H 03/01/23 07/15/24 sublingual film cyclobenzaprine 10 mg tablet 10 mg PO Q8H 03/01/23 07/15/24 diazepam 5 mg tablet 5 mg PO Q8H PRN anxiety 03/30/23 07/15/24 furosemide 40 mg tablet 40 mg PO DAILY 03/30/23 07/15/24 gabapentin 800 mg tablet 800 mg PO TID 03/30/23 07/15/24 oxybutynin chloride 15 mg 15 mg PO DAILY 03/30/23 05/06/24 tablet,extended release 24 hr potassium bicarbonate-citric acid 20 meq PO BID 03/30/23 05/06/24 20 mEq effervescent tablet (Effer-K) tizanidine 4 mg tablet 4 mg PO Q8H PRN muscle spasticity 03/30/23 07/15/24 zolpidem 12.5 mg tablet,extended 12.5 mg PO DAILY 03/30/23 05/06/24 release,multiphase fluoxetine 10 mg capsule 10 mg PO DAILY 05/06/24 07/15/24 Previous Rx's ?Medication ?Instructions ?Recorded ondansetron 4 mg disintegrating 4 mg PO Q8H PRN nausea and 05/07/24 tablet vomiting 0 days #30 tabs nitrofurantoin 100 mg PO Q12H 7 days #14 caps 07/12/24 monohydrate/macrocrystals 100 mg capsule (Macrobid) aluminum-mag hydroxide-simethicone 5 ml PO QID PRN abdominal pain 10 07/15/24 200 mg-200 mg-20 mg/5 mL oral susp days #300 mL (Maalox Advanced) nystatin 100,000 unit/gram topical 1 applic topical BID #30 grams 07/15/24 powder Allergies Allergy/AdvReac Type Severity Reaction Status Date / Time codeine Allergy Severe rash Verified 07/15/24 05:16 Penicillins Allergy Severe Anaphylaxis Verified 07/15/24 05:16 quetiapine (From Seroquel) Allergy Severe Seizure Verified 07/15/24 05:16 Opioid HPI Opioid Management Most Recent Opioid Data: Last Pain Scale 8 11/21/23 09:41 11/21/23 Urine Drug Screen Interp Final (.) 05/14/24 09:30 05/14/24 Review of Systems ROS Status of ROS 10 or more systems reviewed and unremarkable except as noted in history and below [facility] Social History Smoking status: Current every day smoker Little interest or pleasure in doing things: not at all Feeling down, depressed, or hopeless: not at all Exam Narrative Exam Narrative: VITALS: I have reviewed the triage vital signs. GENERAL: Well developed, well appearing adult in no acute distress. NEURO: Alert and oriented. Moves all extremities. Face is symmetric and expressive. EYES: PERRL. No scleral icterus or conjunctival injection. No discharge. HENT: Normocephalic, atraumatic. Hearing is grossly intact. Nares grossly patent and without discharge. Mucous membranes moist. NECK: No JVD. Patient moves neck without restriction. CARDIO: Rhythm regular. Normal rate. No murmur, rub, or gallop. Pulses equal bilaterally in the upper and lower extremity. No lower extremity edema. PULM: Lungs clear to auscultation in all ma. No wheezes, rales, or rhonchi. No conversational dyspnea. No splinting, stridor, or accessory muscle use. GI/: Abdomen is soft and non-tender. Normoactive bowel sounds. Left lower extremity: There is erythema and warmth extending from the mid thigh down to the lower leg. DP and PT pulse intact. She has chronic venous stasis dermatitis. SKIN: Warm and dry. Normal turgor. No rash or lesions appreciated. PSYCH: Mood, affect, and interaction is appropriate to the setting. Constitutional Vital Signs, click to edit/add: Last Vital Signs Temp 98 F 08/26/24 06:26 Pulse 88 08/26/24 06:26 Resp 18 08/26/24 06:26 BP 115/65 08/26/24 06:26 Pulse Ox 97 08/26/24 06:26 O2 Del Method Room Air 08/26/24 06:26 Course Vital Signs Vital signs: Vital Signs Temperature 98 F 08/26/24 06:26 Pulse Rate 88 08/26/24 06:26 Respiratory Rate 18 08/26/24 06:26 Blood Pressure 115/65 08/26/24 06:26 Pulse Oximetry 97 08/26/24 06:26 Oxygen Delivery Method Room Air 08/26/24 06:26 Temperature 98 F 08/26/24 06:26 Pulse Rate 88 08/26/24 06:26 Respiratory Rate 18 08/26/24 06:26 Blood Pressure 115/65 08/26/24 06:26 Pulse Oximetry 97 08/26/24 06:26 Oxygen Delivery Method Room Air 08/26/24 06:26 Medical Decision Making MDM Narrative Medical decision making narrative: 49-year-old female to the emergency department what appears to be cellulitis to the left lower extremity. Vital stable, the patient is afebrile. Basic labs ordered. Vancomycin is ordered given the extent. Care was signed out to Dr. Rodriguez. Working diagnosis: Cellulitis Medical Records Medical records reviewed: Yes I reviewed the patient's medical records Discharge Plan Discharge Chief Complaint: Skin/Abscess/Foreign Body Clinical Impression: Cellulitis Patient Disposition: Still a Patient Prescriptions / Home Meds: No Action diazepam 5 mg tablet 5 mg PO Q8H PRN (Reason: anxiety) furosemide 40 mg tablet 40 mg PO DAILY gabapentin 800 mg tablet 800 mg PO TID oxybutynin chloride 15 mg tablet extended release 24hr 15 mg PO DAILY Effer-K 20 mEq tablet, effervescent 20 meq PO BID tizanidine 4 mg tablet 4 mg PO Q8H PRN (Reason: muscle spasticity) zolpidem 12.5 mg tablet,ext release multiphase 12.5 mg PO DAILY Rx Instructions: HS fluoxetine 10 mg capsule 10 mg PO DAILY ondansetron 4 mg tablet,disintegrating 4 mg PO Q8H PRN (Reason: nausea and vomiting) Qty: 30 0RF nitrofurantoin monohyd/m-cryst [Macrobid] 100 mg capsule 100 mg PO Q12H 7 Days Qty: 14 0RF Rx Instructions: must administer with a meal/food buprenorphine-naloxone 8-2 mg film 2.5 film sublingual Q24H cyclobenzaprine 10 mg tablet 10 mg PO Q8H alum-mag hydroxide-simeth [Maalox Advanced] 200-200-20 mg/5 mL suspension 5 ml PO QID PRN (Reason: abdominal pain) 10 Days Qty: 300 0RF nystatin 100,000 unit/gram powder 1 applic topical BID Qty: 30 0RF Print Language: Guyanese Referrals: Shaikh Obrien MD [Primary Care Provider] - 1 week
[2024-08-26 07:09] LABS: Basophils Absolute Auto 0.1 10^3/uL (0.0-0.1); Basophils Percent Auto 0.4 % (0.2-2.0); Eosinophils Absolute Auto 0.1 10^3/uL (0.0-0.7); Eosinophils Percent Auto 0.7 % (0.9-7.0); Hematocrit 41.3 % (36.0-48.0); Hemoglobin 13.5 g/dL (12.0-16.0); Immature Granulocytes Abs Auto 0.11 10^3/uL (0.00-0.03); Immature Granulocytes Pct Auto 0.6 % (0.0-0.5); Lymphocytes Absolute Auto 2.3 10^3/uL (1.2-3.8); Lymphocytes Percent Auto 12.2 % (20.5-60.0); Mean Corpuscular HGB Conc 32.7 g/dL (29.9-35.2); Mean Corpuscular Hemoglobin 27.2 pg (26.7-34.0); Mean Corpuscular Volume 83.3 fL (81.0-99.0); Mean Platelet Volume 10.5 fL (9.5-13.5); Monocytes Absolute Auto 0.8 10^3/uL (0.3-0.8); Monocytes Percent Auto 4.1 % (1.7-12.0); Neutrophils Absolute Auto 15.7 10^3/uL (1.4-6.5); Platelet Count 245 10^3/uL (150-450); Red Blood Count 4.96 10^6/uL (4.20-5.40); Red Cell Distribution Width 16.1 % (11.0-15.0); White Blood Count 19.2 10^3/uL (4.0-11.0)
[2024-08-26 07:20] VITALS: BP 130/73; PULSE 86; O2SAT 100
--- NOTE | 2024-08-26 07:20 | PC.NURSE ---
Left leg reddened from thigh down to foot, area red and warm.
[2024-08-26] MEDS: KETOROLAC TROMETHAMINE 30 MG/ML VIAL 15 MG IVP ×2 (08:17→18:27)
[2024-08-26] MEDS: VANCOMYCIN HCL 1,250 MG in 0.9 % SODIUM CHLORIDE 250 ML 166.667 MG IV ×2 (08:35→21:11)
[2024-08-26 08:51] LABS: INR 1.04
[2024-08-26 08:54] LABS: Lactate/Lactic Acid 0.8 mmol/L (0.4-2.0)
[2024-08-26 09:02] LABS: Anion Gap 14.1; BUN Creatinine Ratio 18.1; Calcium 9.2 mg/dL (8.5-10.1); Carbon Dioxide 27.2 mmol/L (21.0-32.0); Chloride 100 mmol/L (98-107); Estimated GFR (African America >60 (>=60 mL/min/1.73m^2); Estimated GFR (Non-African Ame >60 (>=60 mL/min/1.73m^2); Glucose 110 mg/dL (74-106); Potassium 3.3 mmol/L (3.5-5.1); Sodium 138 mmol/L (136-145)
[2024-08-26 09:03] LABS: C Reactive Protein 26.55 mg/dL (<=0.50)
--- OUTSIDE RECORDS SUMMARY | 2024-08-26 10:13 | XMS_ITS | CCD ---
Author Organization [facility] Care Team Providers Care [employer] Worker Name Role Phone Required, No Pcp Unavailable Unavailable Lex Frederick Unavailable None, No PCP Unavailable Unavailable Unavailable Unavailable SHAIKH OBRIEN Primary Care Physician [phone] Yony Aguirre Unavailable Unavailable Neurosurgery Unavailable Unavailable [...] ABHINAV Livingston Admitting Unavailabl jacque WEBB, DR ABHNIAV Livingston Consulting UnavailDR CLIF Cotton Admitting Unavailable [...] Admitting Unavailable VETO ., IVON Attending Unavailable [facility] Primary Care Unavailable PATRICK, DEBORAH Aponte Consulting Unavailable [facility] Primary Care Unavailable REINECK, DR ABHINAV Livingston Admitting Unavailabl e REINECK, DR AHBINAV Livingston Consulting Unavailabl e REINECK, DR ABHINAV Livingston Attending Unavailabl e HAY ., DR LOW Admitting Unavailable [facility] Primary Care Unavailable HAY ., DR LOW Attending Unavailable ZIEBER, DR ENRIQUE Santana Consulting Unavailable HAY ., DR LOW Consulting Unavailable LUE ., DANYA M Admitting Unavailable LUE ., DANYA M Attending Unavailable [facility] Primary Care Unavailable [facility] Primary Care Unavailable LUE ., DANYA M Admitting Unavailable LUE ., DANYA M Consulting Unavailable LUE ., DANYA M Attending Unavailable CANDICE MATTA Consulting Unava ilRACHEL Kirk Consulting Unavailable DIAB ., KYRA Admitting Unavailable [facility] Primary Care Unavailable DIAB ., KYRA Attending Unavailable GRECHNY ., BONITA HULL Consulting [facility]abl [facility] Un[facility] LUE ., DANYA M Admitting Unavailable LUE ., DANYA M Consulting Unavailable LUE ., DANYA Aponte Attending Unavailable PAY ., DR RODRIGUEZ Admitting Unavailable PAY ., DR RODRIGUEZ Consulting Unavailable [facility] Primary Care Unavailable PAY ., DR RODRIGUEZ Attending Unavailable [facility] Primary Care Unavailable REINECK, DR ABHINAV Livingston Admitting Unavailabl e REINECK, DR ABHINAV Livingston Consulting Unavailabl e REINECK, DR ABHINAV Livingston Attending Unavailabl e KORIN STANLEY Consulting Unavailable Otoniel, Dr. Lex De Los Santos Attending Kiana Obrien MD, [facility] Care Provider [facility] Care Unavailable Lue, Danya Aponte. Attending Unavailable SHAIKH OBRIEN Attending Unavailable SHAIKH OBRIEN Attending Unavailable GENNY OROSCO Attending Unavailabl jacque Obrien MD, [place] Primary Care Provider Kwesi STACY, Genny Unavailable [phone] Unallocated , [place] Provider Primary Care Provi marilu Kostas Ching MD Primary Care Provider [phone] Allergies Allergy Classification Reported Allergen(s) Allergy Type Date of Onset Reaction(s) Facility Opioid Agonists (1 source) Codeine Drug Allergy Unknown [facility] Penicillins (antibiotic) (1 source) Penicillin Drug Allergy Unknown [facility] QUEtiapine (1 source) QUEtiapine Drug Allergy Unknown [facility] (20 sources) Codeine; Translations: [Codeine] Drug Allergy 6 Hives, Facial Swelling MG-Neurosurger [facility] Work Phone: (20 sources) Penicillins; Translations: [Penicillins] Allergy to drug (finding) Hives, Unknown -Neurosurger [facility] Work Phone: (16 sources) Promethazine; Translations: [promethazine] Drug Allergy 1 Swelling, Unknown [facility] (1 source) QUEtiapine Drug Allergy Seizures [facility] (2 sources) Codeine Drug Allergy 3 [facility] (3 sources) gabapentin; Translations: [Neurontin] Drug Allergy [facility] (1 source) Levamisole Drug Allergy [facility] (1 source) Morphine Drug Allergy 0 [facility] (2 sources) Penicillins Drug allergy (disorder) 3 [facility] (1 source) QUEtiapine Drug Allergy 3 [facility] (7 sources) Penicillins Drug Allergy 3 Hives, GI intolerance [facility] (7 sources) QUEtiapine Drug Allergy 3 Unknown [facility] (1 source) Penicillin Drug Allergy [address] [facility] (1 source) Phenergan Plain Propensity to adverse reactions to drug 6 Swelling, Facial Swelling [facility] Medications Current Medications Medication Drug Class(es) [...] q12hr, # 2 cap(s), Refills(s) 0, [id number], 156, cm, 07/16/22 10:58:00 EST, Height/Length Dosing, [...] day(s), # 2 tab(s), Refills(s) 0, Pharmacy: [address], 156, cm, 01/06/22 10:53:00 EDT, [...] Allowed docusate sodium 50 mg / sennosides, chcf 8.6 mg oral tablet (2 sources) Start: [...] Start: 01-05-2016 take 2 capsules by m [facility] three times daily Neurontin 100 mg Cap 200 mg = 2 cap(s), Oral, TID, Refills(s) 0 Start Date: 01/05/16 Status: Ordered Start: 04-17-2015 take 1 capsule by mo [facility] three times daily gabapentin (NEURONTIN) 300 [...] Start: 04-17-2015 take 1 capsule by mo [facility] once daily hydrochlorothiazide (MICROZIDE) 12.5 mg [...] tab(s), Refills(s) 3, [facility]: [facility] [facility], 156, cm, 02/04/22 15:47:00 EDT, Height/Length Dosing, 78, kg, 02/04/22 15:47:00 EDT, Weight Dosing Start Date: 02/25/22 Status: Ordered nystatin 100 unt/mg topical powder (7 sources) Polyene Antifungal Start: 03-07-2023 Nyamyc 470322 UNIT/GM powder Apply 1 application topically in [...] 30 tab(s), Refills(s) 11, [facility]: [facility] #[id number], 156, cm, 07/16/22 10:58:00 EST, Height/Length Dosing, 78, kg, 07/16/22 10:58:00 EST, Weight Dosing Start Date: 10/04/22 Status: Ordered Start: 07-16-2022 take 1 tablet by marlen th once daily oxybutynin 10 mg ER Tab 10 mg = 1 tab(s), Oral, Daily, # 30 tab(s), Refills(s) 11, [facility]: [facility] #[id number], 156, cm, 07/16/22 10:58:00 EST, Height/Length Dosing, 78, kg, 07/16/22 10:58:00 EST, Weight Dosing Start Date: 07/16/22 Status: Ordered Start: 03-10-2022 take 1 tablet by marlen th once daily oxybutynin 10 mg ER Tab 10 mg = 1 tab(s), Oral, Daily, # 30 tab(s), Refills(s) 3, Pharmacy: [address], 156, cm, 02/04/22 15:47:00 EDT, Height/Length [...] 07-Jan-2021 Generic Substitution Allowed polyethylene glycol 3350 17888 mg powder for oral solution (3 sources) [...] Daily, # 30 cap(s), Refills(s) 0, Pharmacy: [address], 156, cm, 01/07/22 13:43:00 EDT, Height/Length [...] Quantity: 1 Refills: 0 Ordered: 12-Dec-2020 Vanessa Khna Start : 12-Dec-2020 Active cyclobenzaprine hydrochloride 5 [...] Quantity: 0 Refills: 0 Ordered: 12-Dec-2020 Carole Mcdaneil Generic Substitution Allowed mupirocin 0.02 mg/mg topical [...] # 2 cap(s), Refills(s) 0, [facility][id number], 156, cm, 11/26/22 8:15:00 EDT, Height/Length Dosing, [...] Discontinued Generic Substitution Allowed polyethylene glycol 3350 821318 mg / potassium chloride 2970 mg / sodium bicarbonate 6740 mg / sodium chloride 5860 mg / sodium sulfate 61138 mg powder for oral solution (8 sources) [...] 11-01-2023 Chronic Other aftercare (2 sources) Other residential (current) drug therapy; Translations: [Other residential (current) drug therapy] Onset: 2 Episodic Other [...] consultation, please call . ======= Performed at: [facility] [address] [place] [address] [id number] Branch Director: Neli Kearney [facility], Phone: [phone] Specimen Comment: ToxAssure, ToxAssure FLEX or MAT drug testin Specimen Comment: -Technical component - Data analysis performed at Specimen Comment: [facility], [address] [place] [address] Specimen Comment: [phone]. [phone] Branch Director James Barrera MD. [facility] [...] [facility] Outside Recordson 12-28-2023 Outside Records [id number] Normal [facility] Physician Orderon 12-14-2023 Physician Order [id number]#[id number] [facility] ED Note-Physicianon 03-14-20 ED Note-Physician [id number]#1.00CD:12 7 Normal [facility] ED Note-Physicianon 01-23-20 ED Note-Physician [id number]#1.00CD:12 7 Normal [facility] ED Note-Physician [id number]:12 7 [facility] Lab Reportson 01-22-2023 Lab Reports [id number]:12 7 [facility] Patient Correspondenceon Patient Correspondence [id number]#[id number]:12 7 [facility] CULTURE URINEon 01-16-2023 CULTURE URINE [...] R F Nitrofurantoin <=16 S F Normal [facility] Comment on above: Performed By: #### U MICRO, ERUR #### [facility] [address] [place] [address] Dr. Alfredo Lizama CBC AUTO DIFFon 01-13-2023 BASO # 0.1 103/ul Normal 0.0-0.1 [facility] Comment on above: Performed By: #### U MICRO, ERUR #### [facility] [address] [place] [address] Dr. Alfredo Lizama Basophils/100 WBC (Bld) 0.7 % Normal 0.2-2.0 [facility] Comment on above: Performed By: #### U MICRO, ERUR #### [facility] [address] [place] [address] Dr. Alfredo Lizama EO # 0.3 103/ul Normal 0.0-0.7 [facility] Comment on above: Performed By: #### U MICRO, ERUR #### [facility] [address] [place] [address] Dr. Alfredo Lizama Eosinophils/100 WBC (Bld) 3.2 % Normal 0.9-7.0 [facility] Comment on above: Performed By: #### U MICRO, ERUR #### [facility] [address] [place] [address] Dr. Alfredo Lizama Erythrocyte distribution width (RBC) [Ratio] 13.0 % Normal 11.0-15.0 [facility] Comment on above: Performed By: #### U MICRO, ERUR #### [facility] [address] [place] [address] Dr. Alfredo Lizama Hematocrit (Bld) [Volume fraction] 43.2 % Normal 36.0-48.0 [facility] Comment on above: Performed By: #### U MICRO, ERUR #### [facility] [address] [place] [address] Dr. Alfredo Lizama Hemoglobin (Bld) [Mass/Vol] 14.1 g/dL Normal 12.0-16.0 [facility] Comment on above: Performed By: #### U MICRO, ERUR #### [facility] [address] [place] [address] Dr. Alfredo Lizama IG # 0.02 10e3/ul Normal 0.00-0.03 [facility] Comment on above: Performed By: #### U MICRO, ERUR #### [facility] [address] [place] [address] Dr. Alfredo Lizama IG % 0.2 % Normal 0.0-0.5 [facility] Comment on above: Performed By: #### U MICRO, ERUR #### [facility] [address] [address] [address] Alfredo Lizama LYMPH # 3.0 103/ul Normal 1.2-3.8 [facility] Comment on above: Performed By: #### U MICRO, ERUR #### [facility] [address] [place] [address] Dr. Alfredo Lizama Lymphocytes/100 WBC (Bld) 35.6 % Normal 20.5-60.0 [facility] Comment on above: Performed By: #### U MICRO, ERUR #### [facility] [address] [place] [address] Dr. Alfredo Lizama MANUAL DIFF REQ NO Normal [facility] Comment on above: Performed By: #### U MICRO, ERUR #### [facility] [address] [place] [address] Dr. Alfredo Lizama MCH (RBC) [Entitic mass] 29.4 pg Normal 26.7-34.0 [facility] Comment on above: Performed By: #### U MICRO, ERUR #### [facility] [address] [place] [address] Dr. Alfredo Lizama MCHC (RBC) [Mass/Vol] 32.6 g/dL Normal 29.9-35.2 [facility] Comment on above: Performed By: #### U MICRO, ERUR #### [facility] [address] [place] [address] Dr. Alfredo Lizama MCV (RBC) [Entitic vol] 90.0 fL Normal 81.0-99.0 [facility] Comment on above: Performed By: #### U MICRO, ERUR #### [facility] [address] [place] [address] Dr. Alfredo Lizama MONO # 0.4 103/ul Normal 0.3-0.8 [facility] Comment on above: Performed By: #### U MICRO, ERUR #### [facility] [address] [place] [address] Dr. Alfredo Lizama Monocytes/100 WBC (Bld) 4.8 % Normal 1.7-12.0 [facility] Comment on above: Performed By: #### U MICRO, ERUR #### [facility] [address] [address] [address] Alfredo Lizama NEUT # 4.7 103/ul Normal 1.4-6.5 [facility] Comment on above: Performed By: #### U MICRO, ERUR #### [facility] [address] [address] [address] Alfredo Lizama Neutrophils/100 WBC (Bld) 55.5 % Normal 43.0-75.0 [facility] Comment on above: Performed By: #### U MICRO, ERUR #### [facility] [address] [address] [address] Alfredo Lizama Platelet mean volume (Bld) [Entitic vol] 9.5 fL Normal 9.5-13.5 [facility] Comment on above: Performed By: #### U MICRO, ERUR #### [facility] [address] [address] [address] Alfredo Lizama PLT 267 103/ul Normal 150-450 [facility] Comment on above: Performed By: #### U MICRO, ERUR #### [facility] [address] [place] [address] Dr. Alfredo Lizama RBC 4.80 106/ul Normal 4.20-5.40 [facility] Comment on above: Performed By: #### U MICRO, ERUR #### [facility] [address] [address] [address] Alfredo Lizama WBC 8.5 103/ul Normal 4.0-11.0 [facility] Comment on above: Performed By: #### U MICRO, ERUR #### [facility] [address] [address] [address] Alfredo Lizama ER URINE PROFILEon 3 Bilirubin Ql (U) Negative Normal NEGATIVE [facility] Comment on above: Performed By: #### E RUR UMICRO #### [facility] [address] [place] [address] Dr. Alfredo Lizama Clarity (U) CLOUDY Abnormal CLEAR [facility] Comment on above: Performed By: #### Jacque ESTRADA UMICRO #### [facility] [address] [place] [address] Dr. Alfredo Lizama Color (U) YELLOW Normal YELLOW [facility] Comment on above: Performed By: #### Jacque ESTRADA UMICRO #### [facility] [address] [place] [address] Dr. Alfredo Lizama ERUAHD A micrscopic examina tion will be performed if indicated. Normal [facility] Comment on above: Performed By: #### Jacque ESTRADA UMICRO #### [facility] [address] [place] [address] Dr. Alfredo Lizama Glucose Ql (U) Negative Normal NEGATIVE [facility] Comment on above: Performed By: #### Jacque ESTRADA UMICRO #### [facility] [address] [place] [address] Dr. Alfredo Lizama Hemoglobin Ql (U) MODERATE Abnormal NEGATIVE [facility] Comment on above: Performed By: #### Jacque ESTRADA UMICRO #### [facility] [address] [place] [address] Dr. Alfredo Lizama Ketones Ql (U) TRACE Abnormal NEGATIVE [facility] Comment on above: Performed By: #### Jacque ESTRADA UMICRO #### [facility] [address] [place] [address] Dr. Alfredo Lizama LEUKOCYTES SMALL Abnormal NEGATIVE [facility] Comment on above: Performed By: #### Jacque ESTRADA UMICRO #### [facility] [address] [place] [address] Dr. Alfredo Lizama Nitrite Ql (U) Negative Normal NEGATIVE [facility] Comment on above: Performed By: #### Jacque ESTRADA UMICRO #### [facility] [address] [place] [address] Dr. Alfredo Lizama pH (U) 8.0 [pH] Normal 5-9 [facility] Comment on above: Performed By: #### Jacque ESTRADA UMICRO #### [facility] [address] [place] [address] Dr. Alfredo Lizama Protein (U) [Mass/Vol] 100 mg/dL Abnormal NEGAT LATISHA/ TRACE [facility] Comment on above: Performed By: #### CHINMAY CHAVESRO #### [facility] [address] [place] [address] Dr. Alfredo Lizama SPEC GRAVITY 1.015 Normal 1.005-<=1. 025 [facility] Comment on above: Performed By: #### Jacque ESTRADA UMICRO #### [facility] [address] [place] [address] Dr. Alfredo Lizama UR MICRO IND INDICATED Normal [facility] Comment on above: Performed By: #### CHINMAY CHAVESRO #### [facility] [address] [place] [address] Dr. Alfredo Lizama Urobilinogen Qn (U) 1.0 {Tesha'U}/dL Normal 0.2 - 1. 0 [facility] Comment on above: Performed By: #### CHINMAY CHAVESRO #### [facility] [address] [place] [address] Dr. Alfredo Lizama PROF CHEM 8 (BAS METB)on Anion gap [Moles/Vol] 8.4 mmol/L Normal [facility] Comment on above: Performed By: #### U MICRO, ERUR #### [facility] [address] [place] [address] Dr. Alfredo Lizama Calcium [Mass/Vol] 8.7 mg/dL Normal 8.5-10.1 [facility] Comment on above: Performed By: #### U MICRO, ERUR #### [facility] [address] [place] [address] Dr. Alfredo Lizama Chloride [Moles/Vol] 107 mmol/L Normal 98-107 [facility] Comment on above: Performed By: #### U MICRO, ERUR #### [facility] [address] [place] [address] Dr. Alfredo Lizama CO2 [Moles/Vol] 28.3 mmol/L Normal 21.0-32.0 [facility] Comment on above: Performed By: #### U MICRO, ERUR #### [facility] [address] [address] [address] Alfredo Lizama Creatinine [Mass/Vol] 0.70 mg/dL Normal 0.55-1.02 [facility] Comment on above: Performed By: #### U MICRO, ERUR #### [facility] [address] [address] [address] Alfredo Lizama EGFR-AF MAURITIAN >60 Normal >=60 [facility] Comment on above: Performed By: #### U MICRO, ERUR #### [facility] [address] [address] [address] Alfredo Lizama EGFR-NON AF MAURITIAN >60 Normal >=60 [facility] Comment on above: Performed By: #### U MICRO, ERUR #### [facility] [address] [address] [address] Alfredo Lizama Glucose [Mass/Vol] 97 mg/dL Normal 74-106 [facility] Comment on above: Performed By: #### U MICRO, ERUR #### [facility] [address] [address] [address] Alfredo Lizama Potassium [Moles/Vol] 3.7 mmol/L Normal 3.5-5.1 [facility] Comment on above: Performed By: #### U MICRO, ERUR #### [facility] [address] [address] [address] Alfredo Lizama Sodium [Moles/Vol] 140 mmol/L Normal 136-145 [facility] Comment on above: Performed By: #### U MICRO, ERUR #### [facility] [address] [address] [address] Alfredo Lizama Urea nitrogen [Mass/Vol] 7.0 mg/dL Normal 7.0-18.0 [facility] Comment on above: Performed By: #### U MICRO, ERUR #### [facility] [address] [address] [address] Alfredo Lizama Urea nitrogen/Creatinine [Mass ratio] 10.0 mg/mg Normal [facility] Comment on above: Performed By: #### U MICRO, ERUR #### [facility] [address] [address] [address] Alfredo Lizama URINE MICROSCOPIC ONLYon AMORPHOUS CRYSTALS FEW Normal [facility] Comment on above: Performed By: #### Jacque ESTRADA UMICRO #### [facility] [address] [place] [address] Dr. Alfredo Lizama BACTERIA LARGE Abnormal NONE SEEN [facility] Comment on above: Performed By: #### Jacque ESTRADA UMICRO #### [facility] [address] [place] [address] Dr. Alfredo Lizama Bacteria identified Cx Nom (U) INDICATED Normal [facility] Comment on above: Performed By: #### Jacque ESTRADA UMICRO #### [facility] [address] [place] [address] Dr. Alfredo Lizama CAST NONE SEEN Normal NONE SEEN [facility] Comment on above: Performed By: #### Jacque ESTRADA UMICRO #### [facility] [address] [place] [address] Dr. Alrfedo Lizama Crystals LM Nom (Urine sed) SEEN Abnormal NONE SEEN [facility] Comment on above: Performed By: #### Jacque ESTRADA UMICRO #### [facility] [address] [place] [address] Dr. Alfredo Lizama Epithelial cells LM Ql (Urine sed) RARE Normal NONE SEEN /RARE [facility] Comment on above: Performed By: #### Jacque ESTRADA UMICRO #### [facility] [address] [place] [address] Dr. Alfredo Lizama MUCOUS NONE SEEN Normal NONE SEEN [facility] Comment on above: Performed By: #### Jacque ESTRADA UMICRO #### [facility] [address] [place] [address] Dr. Alfredo Lizama RBC 2-5 Abnormal 0-2 [facility] Comment on above: Performed By: #### Jacque ESTRADA UMICRO #### [facility] [address] [place] [address] Dr. Alfredo Lizama TRIPLE PHOS CRYSTALS FEW Normal [facility] Comment on above: Performed By: #### LINDA CHAVES #### [facility] [address] [address] [address] Alfredo Lizama WBC 75-100 Abnormal NONE SEEN [facility] Comment on above: Performed By: #### LINDA CHAVES #### [facility] [address] [place], [place] [address] Dr. Alfredo Lizama Patient Letter FTon 2022 Patient Letter [facility] (Inserted Image. Shelly ble to display) January 10, 2023 MORALES LEE [address] [place] [address] MORALES LEE 1975 Dear Morales, I am [...] Danya Bingham MD [facility] [address] [facility], [address] [place] [address] [facility] CULTURE URINEon 12-25-2022 CULTURE URINE [...] Trimethoprim/Sulfamethoxa zole <=20 S F Normal [facility] Comment on above: Performed By: #### U MICRO, ERUR #### [facility] [address] [place] [address] Dr. Alfredo Lizama AMYLASEon 11-09-2022 Amylase [Catalytic activity/Vol] 14 U/L Critically low 25-115 [facility] [facility] Comment on above: Performed By: #### U MICRO, ERUR #### [facility] [address] [place] [address] Dr. Alfredo Lizama CBC AUTO DIFFon 11-09-2022 BASO # 0.1 103/ul Normal 0.0-0.1 [facility] Comment on above: Performed By: #### U MICRO, ERUR #### [facility] [address] [place] [address] Dr. Alfredo Lizama Basophils/100 WBC (Bld) 0.8 % Normal 0.2-2.0 [facility] Comment on above: Performed By: #### U MICRO, ERUR #### [facility] [address] [place] [address] Dr. Alfredo Lizama EO # 0.2 103/ul Normal 0.0-0.7 [facility] Comment on above: Performed By: #### U MICRO, ERUR #### [facility] [address] [place] [address] Dr. Alfredo Lizama Eosinophils/100 WBC (Bld) 2.5 % Normal 0.9-7.0 [facility] Comment on above: Performed By: #### U MICRO, ERUR #### [facility] [address] [place] [address] Dr. Alfredo Lizama Erythrocyte distribution width (RBC) [Ratio] 12.7 % Normal 11.0-15.0 [facility] Comment on above: Performed By: #### U MICRO, ERUR #### [facility] [address] [place] [address] Dr. Alfredo Lizama Hematocrit (Bld) [Volume fraction] 46.3 % Normal 36.0-48.0 [facility] Comment on above: Performed By: #### U MICRO, ERUR #### [facility] [address] [place] [address] Dr. Alfredo Lizama Hemoglobin (Bld) [Mass/Vol] 15.9 g/dL Normal 12.0-16.0 [facility] Comment on above: Performed By: #### U MICRO, ERUR #### [facility] [address] [place] [address] Dr. Alfredo Lizama IG # 0.02 10e3/ul Normal 0.00-0.03 [facility] Comment on above: Performed By: #### U MICRO, ERUR #### [facility] [address] [place] [address] Dr. Alfredo Lizama IG % 0.2 % Normal 0.0-0.5 [facility] Comment on above: Performed By: #### U MICRO, ERUR #### [facility] [address] [place] [address] Dr. Alfredo Lizama LYMPH # 2.6 103/ul Normal 1.2-3.8 [facility] Comment on above: Performed By: #### U MICRO, ERUR #### [facility] [address] [place] [address] Dr. Alfredo Lizama Lymphocytes/100 WBC (Bld) 31.3 % Normal 20.5-60.0 [facility] Comment on above: Performed By: #### U MICRO, ERUR #### [facility] [address] [place] [address] Dr. Alfredo Lizama MANUAL DIFF REQ NO Normal [facility] Comment on above: Performed By: #### U MICRO, ERUR #### [facility] [address] [place] [address] Dr. Alfredo Lizama MCH (RBC) [Entitic mass] 29.3 pg Normal 26.7-34.0 [facility] Comment on above: Performed By: #### U MICRO, ERUR #### [facility] [address] [place] [address] Dr. Alfredo Lizama MCHC (RBC) [Mass/Vol] 34.3 g/dL Normal 29.9-35.2 [facility] Comment on above: Performed By: #### U MICRO, ERUR #### [facility] [address] [address] [address] Alfredo Lizama MCV (RBC) [Entitic vol] 85.4 fL Normal 81.0-99.0 [facility] Comment on above: Performed By: #### U MICRO, ERUR #### [facility] [address] [place] [address] Dr. Alfredo Lizama MONO # 0.6 103/ul Normal 0.3-0.8 [facility] Comment on above: Performed By: #### U MICRO, ERUR #### [facility] [address] [place] [address] Dr. Alfredo Lizama Monocytes/100 WBC (Bld) 6.6 % Normal 1.7-12.0 [facility] Comment on above: Performed By: #### U MICRO, ERUR #### [facility] [address] [place] [address] Dr. Alfredo Lizama NEUT # 4.9 103/ul Normal 1.4-6.5 [facility] Comment on above: Performed By: #### U MICRO, ERUR #### [facility] [address] [place] [address] Dr. Alfredo Lizama Neutrophils/100 WBC (Bld) 58.6 % Normal 43.0-75.0 [facility] Comment on above: Performed By: #### U MICRO, ERUR #### [facility] [address] [place] [address] Dr. Alfredo Lizama Platelet mean volume (Bld) [Entitic vol] 9.5 fL Normal 9.5-13.5 [facility] Comment on above: Performed By: #### U MICRO, ERUR #### [facility] [address] [place] [address] Dr. Alfredo Lizama PLT 273 103/ul Normal 150-450 [facility] Comment on above: Performed By: #### U MICRO, ERUR #### [facility] [address] [place] [address] Dr. Alfredo Lizama RBC 5.42 106/ul Critically high 4.20-5.40 [facility] Comment on above: Performed By: #### U MICRO, ERUR #### [facility] [address] [place] [address] Dr. Alfredo Lizama WBC 8.4 103/ul Normal 4.0-11.0 [facility] Comment on above: Performed By: #### U MICRO, ERUR #### [facility] [address] [place] [address] Dr. Alfredo Lizama CULTURE URINEon 11-09-2022 CULTURE URINE Culture Observations : MODERATE GROWTH OF MIXED GENITAL ROSANNA. NO POTENTIAL PATHOGENS SEEN. Normal [facility] Comment on above: Performed By: #### U MICRO, ERUR #### [facility] [address] [place] [address] Dr. Alfredo Lizama ER URINE PROFILEon 3 Bilirubin Ql (U) Negative Normal NEGATIVE [facility] Comment on above: Performed By: #### U MICRO, ERUR #### [facility] [address] [place] [address] Dr. Alfredo Lizama Clarity (U) CLEAR Normal CLEAR [facility] Comment on above: Performed By: #### U MICRO, ERUR #### [facility] [address] [place] [address] Dr. Alfredo Lizama Color (U) LT. YELLOW Normal YELLOW [facility] Comment on above: Performed By: #### U MICRO, ERUR #### [facility] [address] [place] [address] Dr. Alfredo Lizama ERUAHD A micrscopic examina tion will be performed if indicated. Normal [facility] Comment on above: Performed By: #### U MICRO, ERUR #### [facility] [address] [place] [address] Dr. Alfredo Lizama Glucose Ql (U) Negative Normal NEGATIVE [facility] Comment on above: Performed By: #### U MICRO, ERUR #### [facility] [address] [place] [address] Dr. Alfredo Lizama Hemoglobin Ql (U) MODERATE Abnormal NEGATIVE [facility] Comment on above: Performed By: #### U MICRO, ERUR #### [facility] [address] [place] [address] Dr. Alfredo Lizama Ketones Ql (U) Negative Normal NEGATIVE [facility] Comment on above: Performed By: #### U MICRO, ERUR #### [facility] [address] [place] [address] Dr. Alfredo Lizama LEUKOCYTES LARGE Abnormal NEGATIVE [facility] Comment on above: Performed By: #### U MICRO, ERUR #### [facility] [address] [address] [address] Alfredo Lizama Nitrite Ql (U) Negative Normal NEGATIVE [facility] Comment on above: Performed By: #### U MICRO, ERUR #### [facility] [address] [place] [address] Dr. Alfredo Lizama pH (U) 7.0 [pH] Normal 5-9 [facility] Comment on above: Performed By: #### U MICRO, ERUR #### [facility] [address] [place] [address] Dr. Alfredo Lizama SPEC GRAVITY 1.015 Normal 1.005-<=1. 025 [facility] Comment on above: Performed By: #### U MICRO, ERUR #### [facility] [address] [place] [address] Dr. Alfredo Lizama UA PROTEIN Negative Normal NEGATIVE/ TRACE [facility] Comment on above: Performed By: #### U MICRO, ERUR #### [facility] [address] [place] [address] Dr. Alfredo Lizama UR MICRO IND INDICATED Normal [facility] Comment on above: Performed By: #### U MICRO, ERUR #### [facility] [address] [place] [address] Dr. Alfredo Lizama Urobilinogen Qn (U) 0.2 {Tesha'U}/dL Normal 0.2 - 1. 0 [facility] Comment on above: Performed By: #### U MICRO, ERUR #### [facility] [address] [place] [address] Dr. Alfredo Lizama LIPASEon 11-09-2022 Lipase [Catalytic activity/Vol] 34.0 U/L Critically low 73.0-393.0 [facility] Comment on above: Performed By: #### U MICRO, ERUR #### [facility] [address] [place] [address] Dr. Alfredo Lizama PROF 14(COMP METB)on 023 Albumin [Mass/Vol] 4.0 g/dL Normal 3.4-5.0 [facility] Comment on above: Performed By: #### U MICRO, ERUR #### [facility] [address] [place] [address] Dr. Alfredo Lizama Albumin/Globulin [Mass ratio] 1.0 {ratio} Normal [facility] Comment on above: Performed By: #### U MICRO, ERUR #### [facility] [address] [place] [address] Dr. Alfredo Lizama ALP [Catalytic activity/Vol] 206 U/L Critically high 46-116 [facility] Comment on above: Performed By: #### U MICRO, ERUR #### [facility] [address] [place] [address] Dr. Alfredo Lizama ALT [Catalytic activity/Vol] 53 U/L Normal 14-59 [facility] Comment on above: Performed By: #### U MICRO, ERUR #### [facility] [address] [place] [address] Dr. Alfredo Lizama Anion gap [Moles/Vol] 14.5 mmol/L Normal [facility] Comment on above: Performed By: #### U MICRO, ERUR #### [facility] [address] [place] [address] Dr. Alfredo Lizama AST [Catalytic activity/Vol] 55 U/L Critically high 15-37 [facility] Comment on above: Performed By: #### U MICRO, ERUR #### [facility] [address] [place] [address] Dr. Alfredo Lizama Bilirubin [Mass/Vol] 0.7 mg/dL Normal 0.2-1.0 [facility] Comment on above: Performed By: #### U MICRO, ERUR #### [facility] [address] [address] [address] Alfredo Lizama Calcium [Mass/Vol] 9.0 mg/dL Normal 8.5-10.1 [facility] Comment on above: Performed By: #### U MICRO, ERUR #### [facility] [address] [address] [address] Alfredo Lizama Chloride [Moles/Vol] 100 mmol/L Normal 98-107 [facility] Comment on above: Performed By: #### U MICRO, ERUR #### [facility] [address] [place] [address] Dr. Alfredo Lizama CO2 [Moles/Vol] 28.3 mmol/L Normal 21.0-32.0 [facility] Comment on above: Performed By: #### U MICRO, ERUR #### [facility] [address] [place] [address] Dr. Alfredo Lizama Creatinine [Mass/Vol] 0.65 mg/dL Normal 0.55-1.02 [facility] Comment on above: Performed By: #### U MICRO, ERUR #### [facility] [address] [place] [address] Dr. Alfredo Lizama EGFR-AF MAURITIAN >60 Normal >=60 [facility] Comment on above: Performed By: #### U MICRO, ERUR #### [facility] [address] [place] [address] Dr. Alfredo Lizama EGFR-NON AF MAURITIAN >60 Normal >=60 [facility] Comment on above: Performed By: #### U MICRO, ERUR #### [facility] [address] [address] [address] Alfredo Lizama Globulin (S) [Mass/Vol] 3.9 g/dL Normal [facility] Comment on above: Performed By: #### U MICRO, ERUR #### [facility] [address] [place] [address] Dr. Alfredo Lizama Glucose [Mass/Vol] 134 mg/dL Critically high 74-106 [facility] Comment on above: Performed By: #### U MICRO, ERUR #### [facility] [address] [place] [address] Dr. Alfredo Lizama Potassium [Moles/Vol] 3.8 mmol/L Normal 3.5-5.1 [facility] Comment on above: Performed By: #### U MICRO, ERUR #### [facility] [address] [place] [address] Dr. Alfredo Lizama Protein [Mass/Vol] 7.9 g/dL Normal 6.4-8.2 [facility] Comment on above: Performed By: #### U MICRO, ERUR #### [facility] [address] [place] [address] Dr. Alfredo Lizama Sodium [Moles/Vol] 139 mmol/L Normal 136-145 [facility] Comment on above: Performed By: #### U MICRO, ERUR #### [facility] [address] [place] [address] Dr. Alfredo Lizama Urea nitrogen [Mass/Vol] 7.0 mg/dL Normal 7.0-18.0 [facility] Comment on above: Performed By: #### U MICRO, ERUR #### [facility] [address] [place] [address] Dr. Alfredo Lizama Urea nitrogen/Creatinine [Mass ratio] 10.7 mg/mg Normal [facility] Comment on above: Performed By: #### U MICRO, ERUR #### [facility] [address] [place] [address] Dr. Alfredo Lizama URINE MICROSCOPIC ONLYon BACTERIA TRACE Abnormal NONE SEEN [facility] Comment on above: Performed By: #### U MICRO, ERUR #### [facility] [address] [place] [address] Dr. Alfredo Lizama Bacteria identified Cx Nom (U) INDICATED Normal [facility] Comment on above: Performed By: #### U MICRO, ERUR #### [facility] [address] [place] [address] Dr. Alfredo Lizama CAST NONE SEEN Normal NONE SEEN [facility] Comment on above: Performed By: #### U MICRO, ERUR #### [facility] [address] [place] [address] Dr. Alfredo Lizama Crystals LM Nom (Urine sed) NONE SEEN Normal NONE SEEN [facility] Comment on above: Performed By: #### U MICRO, ERUR #### [facility] [address] [place] [address] Dr. Alfredo Lizama Epithelial cells LM Ql (Urine sed) FEW Abnormal NONE SEEN /RARE [facility] Comment on above: Performed By: #### U MICRO, ERUR #### [facility] [address] [place] [address] Dr. Alfredo Lizama MUCOUS NONE SEEN Normal NONE SEEN [facility] Comment on above: Performed By: #### U MICRO, ERUR #### [facility] [address] [place] [address] Dr. Alfredo Lizama RBC 20-50 Abnormal 0-2 [facility] Comment on above: Performed By: #### U MICRO, ERUR #### [facility] [address] [place] [address] Dr. Alfredo Lizama WBC 20-50 Abnormal NONE SEEN [facility] Comment on above: Performed By: #### U MICRO, ERUR #### [facility] [address] [place] [address] Dr. Alfredo Lizama XR ABD FLAT_UPon 11-09-2022 [...] Date: 2022-11-09 11:06 Normal [facility] CULTURE URINEon 10-18-2022 CULTURE URINE Isolate 1 [...] Trimethoprim/Sulfamethoxa zole <=10 S F Normal [facility] Comment on above: Performed By: #### U MICRO, ERUR #### [facility] [address] [place] [address] Dr. Alfredo Lizama ER URINE PROFILEon 3 Bilirubin Ql (U) Negative Normal NEGATIVE [facility] Comment on above: Performed By: #### LINDA CHAVES #### [facility] [address] [place] [address] Dr. Alfredo Lizama Clarity (U) CLEAR Normal CLEAR [facility] Comment on above: Performed By: #### CHINMAY CHAVESRO #### [facility] [address] [place] [address] Dr. Alfredo Lizama Color (U) YELLOW Normal YELLOW [facility] Comment on above: Performed By: #### FER CHAVESICRO #### [facility] [address] [place] [address] Dr. Alfredo RAYMUNDO A micrscopic examina tion will be performed if indicated. Normal [facility] Comment on above: Performed By: #### Jacque ESTRADA UMICRO #### [facility] [address] [place] [address] Dr. Alfredo Lizama Glucose Ql (U) Negative Normal NEGATIVE [facility] Comment on above: Performed By: #### Jacque ESTRADA UMICRO #### [facility] [address] [place] [address] Dr. Alfredo Lizama Hemoglobin Ql (U) LARGE Abnormal NEGATIVE [facility] Comment on above: Performed By: #### Jacque ESTRADA UMICRO #### [facility] [address] [place] [address] Dr. Alfredo Lizama Ketones Ql (U) Negative Normal NEGATIVE [facility] Comment on above: Performed By: #### Jacque ESTRADA UMICRO #### [facility] [address] [place] [address] Dr. Alfredo Lizama LEUKOCYTES LARGE Abnormal NEGATIVE [facility] Comment on above: Performed By: #### Jacque ESTRADA UMICRO #### [facility] [address] [place] [address] Dr. Alfredo Lizama Nitrite Ql (U) Positive Abnormal NEGATIVE [facility] Comment on above: Performed By: #### Jacque ESTRADA UMICRO #### [facility] [address] [place] [address] Dr. Alfredo Lizama pH (U) 6.5 [pH] Normal 5-9 [facility] Comment on above: Performed By: #### FER CHAVESICRO #### [facility] [address] [place] [address] Dr. Alfredo Lizama Protein (U) [Mass/Vol] 100 mg/dL Abnormal NEGAT LATISHA/ TRACE [facility] Comment on above: Performed By: #### Jacque ESTRADA UMICRO #### [facility] [address] [place] [address] Dr. Alfredo Lizama SPEC GRAVITY 1.010 Normal 1.005-<=1. 025 [facility] Comment on above: Performed By: #### CHINMAY CHAVESRO #### [facility] [address] [place] [address] Dr. Alfredo Lizama UR MICRO IND INDICATED Normal [facility] Comment on above: Performed By: #### FER CHAVESICRO #### [facility] [address] [place] [address] Dr. Alfredo Lizama Urobilinogen Qn (U) 1.0 {Tesha'U}/dL Normal 0.2 - 1. 0 [facility] Comment on above: Performed By: #### E RURLINDA #### [facility] [address] [place] [address] Dr. Alfredo Lizama URINE MICROSCOPIC ONLYon BACTERIA MODERATE Abnormal NONE SEEN [facility] Comment on above: Performed By: #### U MICRO, ERUR #### [facility] [address] [place] [address] Dr. Alfredo Lizama Bacteria identified Cx Nom (U) INDICATED Normal [facility] Comment on above: Performed By: #### U MICRO, ERUR #### [facility] [address] [place] [address] Dr. Alfredo Lizama CA OX CRYSTALS RARE Normal [facility] Comment on above: Performed By: #### U MICRO, ERUR #### [facility] [address] [place] [address] Dr. Alfredo Lizama CAST NONE SEEN Normal NONE SEEN [facility] Comment on above: Performed By: #### U MICRO, ERUR #### [facility] [address] [place] [address] Dr. Alfredo Lizama Crystals LM Nom (Urine sed) SEEN Abnormal NONE SEEN [facility] Comment on above: Performed By: #### U MICRO, ERUR #### [facility] [address] [place] [address] Dr. Alfrdeo Lizama Epithelial cells LM Ql (Urine sed) MODERATE Abnormal NONE SEEN /RARE [facility] Comment on above: Performed By: #### U MICRO, ERUR #### [facility] [address] [place] [address] Dr. Alfredo Lizama MUCOUS TRACE Abnormal NONE SEEN [facility] Comment on above: Performed By: #### U MICRO, ERUR #### [facility] [address] [place] [address] Dr. Alfredo Lizama RBC 20-50 Abnormal 0-2 [facility] Comment on above: Performed By: #### U MICRO, ERUR #### [facility] [address] [place] [address] Dr. Alfredo Lizama WBC 50-75 Abnormal NONE SEEN [facility] Comment on above: Performed By: #### U MICRO, ERUR #### [facility] [address] [place] [address] Dr. Alfredo Lizama Covid-19 PCR ([facility])on 08-06 SARS-CoV-2 (COVID-19) RNA ADRIÁN+probe Ql (Unsp spec) Not detected Normal NOT DETECTED [facility] Comment on above: Result Comment: When diagnostic [...] for this test is supported by the [employer] Administrator of Health and Human Service's declaration that [...] #### U MICRO, ERUR #### [facility] [address] [place] [address] Dr. Alfredo Lizama CBC AUTO DIFFon 08-24-2022 BASO # 0.1 103/ul Normal 0.0-0.1 [facility] Comment on above: Performed By: #### C BC #### [facility] [address] [place] [address] Dr. Alfredo Lizama Basophils/100 WBC (Bld) 0.8 % Normal 0.2-2.0 [facility] Comment on above: Performed By: #### C BC #### [facility] [address] [place] [address] Dr. Alfredo Lizama EO # 0.3 103/ul Normal 0.0-0.7 [facility] Comment on above: Performed By: #### C BC #### [facility] [address] [place] [address] Dr. Alfredo Lizama Eosinophils/100 WBC (Bld) 3.1 % Normal 0.9-7.0 [facility] Comment on above: Performed By: #### C BC #### [facility] [address] [place] [address] Dr. Alfredo Lizama Erythrocyte distribution width (RBC) [Ratio] 13.4 % Normal 11.0-15.0 [facility] Comment on above: Performed By: #### C BC #### [facility] [address] [place] [address] Dr. Alfredo Lizama Hematocrit (Bld) [Volume fraction] 47.2 % Normal 36.0-48.0 [facility] Comment on above: Performed By: #### C BC #### [facility] [address] [place] [address] Dr. Alfredo Lizama Hemoglobin (Bld) [Mass/Vol] 15.6 g/dL Normal 12.0-16.0 [facility] Comment on above: Performed By: #### C BC #### [facility] [address] [place] [address] Dr. Alfredo Lizama IG # 0.02 10e3/ul Normal 0.00-0.03 [facility] Comment on above: Performed By: #### C BC #### [facility] [address] [place] [address] Dr. Alfredo Lizama IG % 0.2 % Normal 0.0-0.5 [facility] Comment on above: Performed By: #### C BC #### [facility] [address] [place] [address] Dr. Alfredo Lizama LYMPH # 4.4 103/ul Critically high 1.2-3.8 [facility] Comment on above: Performed By: #### C BC #### [facility] [address] [place] [address] Dr. Alfredo Lizama Lymphocytes/100 WBC (Bld) 42.3 % Normal 20.5-60.0 [facility] Comment on above: Performed By: #### C BC #### [facility] [address] [place] [address] Dr. Alfredo Lizama MANUAL DIFF REQ NO Normal [facility] Comment on above: Performed By: #### C BC #### [facility] [address] [place] [address] Dr. Alfredo Lizama MCH (RBC) [Entitic mass] 28.8 pg Normal 26.7-34.0 [facility] Comment on above: Performed By: #### C BC #### [facility] [address] [place] [address] Dr. Alfredo Lizama MCHC (RBC) [Mass/Vol] 33.1 g/dL Normal 29.9-35.2 [facility] Comment on above: Performed By: #### C BC #### [facility] [address] [place] [address] Dr. Alfredo Lizama MCV (RBC) [Entitic vol] 87.2 fL Normal 81.0-99.0 [facility] Comment on above: Performed By: #### C BC #### [facility] [address] [place] [address] Dr. Alfredo Lizama MONO # 0.6 103/ul Normal 0.3-0.8 [facility] Comment on above: Performed By: #### C BC #### [facility] [address] [place] [address] Dr. Alfredo Lizama Monocytes/100 WBC (Bld) 5.3 % Normal 1.7-12.0 [facility] Comment on above: Performed By: #### C BC #### [facility] [address] [place] [address] Dr. Alfredo Lizama NEUT # 5.0 103/ul Normal 1.4-6.5 [facility] Comment on above: Performed By: #### C BC #### [facility] [address] [place] [address] Dr. Alfredo Lizama Neutrophils/100 WBC (Bld) 48.3 % Normal 43.0-75.0 [facility] Comment on above: Performed By: #### C BC #### [facility] [address] [address] [address] Alfredo Lizama Platelet mean volume (Bld) [Entitic vol] 9.9 fL Normal 9.5-13.5 [facility] Comment on above: Performed By: #### C BC #### [facility] [address] [place] [address] Dr. Alfredo Lizama PLT 298 103/ul Normal 150-450 [facility] Comment on above: Performed By: #### C BC #### [facility] [address] [address] [address] Alfredo Lizama RBC 5.41 106/ul Critically high 4.20-5.40 [facility] Comment on above: Performed By: #### C BC #### [facility] [address] [place] [address] Dr. Alfredo Lizama WBC 10.3 103/ul Normal 4.0-11.0 [facility] Comment on above: Performed By: #### C BC #### [facility] [address] [place] [address] Dr. Alfredo Lizama PROF CHEM 8 (BAS METB)on Anion gap [Moles/Vol] 14.3 mmol/L Normal [facility] Comment on above: Performed By: #### U MICRO, ERUR #### [facility] [address] [place] [address] Dr. Alfredo Lizama Calcium [Mass/Vol] 9.1 mg/dL Normal 8.5-10.1 [facility] Comment on above: Performed By: #### U MICRO, ERUR #### [facility] [address] [place] [address] Dr. Alfredo Lizama Chloride [Moles/Vol] 99 mmol/L Normal 98-107 [facility] Comment on above: Performed By: #### U MICRO, ERUR #### [facility] [address] [place] [address] Dr. Alfredo Lizama CO2 [Moles/Vol] 29.0 mmol/L Normal 21.0-32.0 [facility] Comment on above: Performed By: #### U MICRO, ERUR #### [facility] [address] [place] [address] Dr. Alfredo Lizama Creatinine [Mass/Vol] 0.70 mg/dL Normal 0.55-1.02 [facility] Comment on above: Performed By: #### U MICRO, ERUR #### [facility] [address] [address] [address] Alfredo Lizama EGFR-AF MAURITIAN >60 Normal >=60 [facility] Comment on above: Performed By: #### U MICRO, ERUR #### [facility] [address] [place] [address] Dr. Alfredo Lizama EGFR-NON AF MAURITIAN >60 Normal >=60 [facility] Comment on above: Performed By: #### U MICRO, ERUR #### [facility] [address] [place] [address] Dr. Alfredo Lizama Glucose [Mass/Vol] 121 mg/dL Critically high 74-106 [facility] Comment on above: Performed By: #### U MICRO, ERUR #### [facility] [address] [address] [address] Alfredo Lizama Potassium [Moles/Vol] 3.3 mmol/L Critically low 3.5-5.1 [facility] Comment on above: Performed By: #### U MICRO, ERUR #### [facility] [address] [place] [address] Dr. Alfredo Lizama Sodium [Moles/Vol] 139 mmol/L Normal 136-145 [facility] Comment on above: Performed By: #### U MICRO, ERUR #### [facility] [address] [address] [address] Alfredo Lizama Urea nitrogen [Mass/Vol] 5.0 mg/dL Critically low 7.0-18. 0 [facility] Comment on above: Performed By: #### U MICRO, ERUR #### [facility] [address] [address] [address] Alfredo Lizama Urea nitrogen/Creatinine [Mass ratio] 7.1 mg/mg Normal [facility] Comment on above: Performed By: #### U MICRO, ERUR #### [facility] [address] [place] [address] Dr. Alfredo Lizama PROTIMEon 08-24-2022 INR Coag (PPP) [Relative time] 0.99 {INR} Normal [facility] Comment on above: Performed By: #### P T, PTT #### [facility] [address] [place] [address] Dr. Alfredo Lizama INR GUIDELINES SEE BELOW Normal [facility] Comment on above: Result Comment: MARY JO RED INR: 2.0 - 3.0 CONDITIONS NOT LISTED BELOW 2.5 - 3.5 FOR PROSTHETIC HEART VALVE REPLACEMENT 2.5 - 3.5 RECURRENT THROMBOSIS Performed By: #### P T, PTT #### [facility] [address] [place] [address] Dr. Alfredo Lizama PT Coag (PPP) [Time] 10.7 s Normal 9.0-11.6 [facility] Comment on above: Performed By: #### P T, PTT #### [facility] [address] [place] [address] Dr. Alfredo Lizama PTTon 08-24-2022 aPTT Coag (Bld) [Time] 31.7 s Normal 22.3-36.2 [facility] Comment on above: Performed By: #### P T, PTT #### [facility] [address] [place] [address] Dr. Alfredo Lizama BN SACRUM/COCCYX, MIN 2 [...] 09/20/2019. Thoracolumbar spine radiographs 09/08/2021. ACCESSION NUMBER(S): [id number]; [id number]; [id number] ORDERING CLINICIAN: CANDICE PEREZ FINDINGS: Three views [...] 09/20/2019. Thoracolumbar spine radiographs 09/08/2021. ACCESSION NUMBER(S): [id number]; [id number]; [id number] ORDERING CLINICIAN: CANDICE PEREZ FINDINGS: Three views [...] 09/20/2019. Thoracolumbar spine radiographs 09/08/2021. ACCESSION NUMBER(S): [id number]; [id number]; [id number] ORDERING CLINICIAN: CANDICE HEERSINK FINDINGS: Three views [...] Electronically signed by: GOMEZ JAMA MD Normal [facility] CBC AND DIFFERENTIALon 06-07 % AUTOMATED IMMATURE GRAN 0.2 % Normal 0.0 - 0.9 [facility] Comment on above: Result Comment: Jaleesa ture Granulocyte Count (IG) includes promyelocytes, myelocytes and metamyelocytes but does not include bands. Percent differential counts (%) should be interpreted in the context of the absolute cell counts (cells/L). Performed By: #### R ENAL #### [facility] [address] [place] [address] Basophils (Bld) [#/Vol] 0.09 10*3/uL Normal 0.00 - 0.10 [facility] Comment on above: Performed By: #### R ENAL #### [facility] [address] [place] [address] Basophils/100 WBC (Bld) 1.0 % Normal 0.0 - 2.0 [facility] Comment on above: Performed By: #### R ENAL #### [facility] [address] [place] [address] Eosinophils (Bld) [#/Vol] 0.24 10*3/uL Normal 0.00 - 0.70 [facility] Comment on above: Performed By: #### R ENAL #### [facility] [address] [place] [address] Eosinophils/100 WBC (Bld) 2.6 % Normal 0.0 - 6.0 [facility] Comment on above: Performed By: #### R ENAL #### [facility] [address] [place] [address] Erythrocyte distribution width (RBC) [Ratio] 12.9 % Normal 11.5 - 14.5 [facility] Comment on above: Performed By: #### R ENAL #### [facility] [address] [place] [address] Hematocrit (Bld) [Volume fraction] 48.4 % High 36.0 - 46.0 [facility] Comment on above: Performed By: #### R ENAL #### [facility] [address] [place] [address] Hemoglobin (Bld) [Mass/Vol] 17.1 g/dL High 12.0 - 16.0 [facility] Comment on above: Performed By: #### R ENAL #### [facility] [address] [place] [address] Lymphocytes (Bld) [#/Vol] 2.93 10*3/uL Normal 1.20 - 4.80 [facility] Comment on above: Performed By: #### R ENAL #### [facility] [address] [place] [address] Lymphocytes/100 WBC (Bld) 31.9 % Normal 13.0 - 44.0 [facility] Comment on above: Performed By: #### R ENAL #### [facility] [address] [place] [address] MCHC (RBC) [Mass/Vol] 35.3 g/dL Normal 32.0 - 36.0 [facility] Comment on above: Performed By: #### R ENAL #### [facility] [address] [place] [address] MCV (RBC) [Entitic vol] 85 fL Normal 80 - 100 [facility] Comment on above: Performed By: #### R ENAL #### [facility] [address] [place] [address] Monocytes (Bld) [#/Vol] 0.36 10*3/uL Normal 0.10 - 1.00 [facility] Comment on above: Performed By: #### R ENAL #### [facility] [address] [place] [address] Monocytes/100 WBC (Bld) 3.9 % Normal 2.0 - 10.0 [facility] Comment on above: Performed By: #### R ENAL #### [facility] [address] [place] [address] Neutrophils (Bld) [#/Vol] 5.54 10*3/uL Normal 1.20 - 7.70 [facility] Comment on above: Performed By: #### R ENAL #### [facility] [address] [place] [address] Neutrophils/100 WBC (Bld) 60.4 % Normal 40.0 - 80.0 [facility] Comment on above: Performed By: #### R ENAL #### [facility] [address] [place] [address] NUCLEATED RBC 0.0 /100 WBC Normal 0.0-0.0 [facility] Comment on above: Performed By: #### R ENAL #### [facility] [address] [place] [address] Platelets (Bld) [#/Vol] 365 10*3/uL Normal 150 - 450 [facility] Comment on above: Performed By: #### R ENAL #### [facility] [address] [place] [address] RBC 5.69 x10E12/L High 4.00 - 5.20 [facility] Comment on above: Performed By: #### R ENAL #### [facility] [address] [place] [address] WBC (Bld) [#/Vol] 9.2 10*3/uL Normal 4.4 - 11.3 [facility] Comment on above: Performed By: #### R ENAL #### [facility] [address] [place] [address] COMPREHENSIVE PANELon 2021 Albumin [Mass/Vol] 4.6 g/dL Normal 3.4 - 5.0 [facility] Comment on above: Performed By: #### R ENAL #### [facility] [address] [place] [address] ALP [Catalytic activity/Vol] 192 U/L High 33 - 110 [facility] Comment on above: Performed By: #### R ENAL #### [facility] [address] [place] [address] ALT [Catalytic activity/Vol] 33 U/L Normal 7 - 45 [facility] Comment on above: Result Comment: Melly ents treated with Sulfasalazine may generate falsely decreased results for ALT. Performed By: #### R ENAL #### [facility] [address] [place] [address] Anion gap [Moles/Vol] 16 mmol/L Normal 10 - 20 [facility] Comment on above: Performed By: #### R ENAL #### [facility] [address] [place] [address] AST [Catalytic activity/Vol] 51 U/L High 9 - 39 [facility] Comment on above: Performed By: #### R ENAL #### [facility] [address] [place] [address] Bilirubin [Mass/Vol] 0.5 mg/dL Normal 0.0 - 1.2 [facility] Comment on above: Performed By: #### R ENAL #### [facility] [address] [place] [address] Calcium [Mass/Vol] 10.3 mg/dL Normal 8.6 - 10.6 [facility] Comment on above: Performed By: #### R ENAL #### [facility] [address] [place] [address] Chloride [Moles/Vol] 101 mmol/L Normal 98 - 107 [facility] Comment on above: Performed By: #### R ENAL #### [facility] [address] [place] [address] Creatinine [Mass/Vol] 0.61 mg/dL Normal 0.50 - 1.05 [facility] Comment on above: Performed By: #### R ENAL #### [facility] [address] [place] [address] eGFR FEMALE >90 Normal >90 [facility] Comment on above: Result Comment: CALC ULATIONS OF ESTIMATED GFR ARE PERFORMED USING THE 2020 CKD-EPI STUDY REFIT EQUATION WITHOUT THE RACE VARIABLE FOR THE IDMS-TRACEABLE CREATININE METHODS. https://jasn.asnjournals.org/content/early/ASN.026 5724811 Performed By: #### R ENAL #### [facility] [address] [place] [address] Glucose [Mass/Vol] 100 mg/dL High 74 - 99 [facility] Comment on above: Performed By: #### R ENAL #### [facility] [address] [place] [address] HCO3 (Bld) [Moles/Vol] 27 mmol/L Normal 21 - 32 [facility] Comment on above: Performed By: #### R ENAL #### [facility] [address] [place] [address] Potassium [Moles/Vol] 3.8 mmol/L Normal 3.5 - 5.3 [facility] Comment on above: Performed By: #### R ENAL #### [facility] [address] [place] [address] Protein [Mass/Vol] 8.2 g/dL Normal 6.4 - 8.2 [facility] Comment on above: Performed By: #### R ENAL #### [facility] [address] [place] [address] Sodium [Moles/Vol] 140 mmol/L Normal 136 - 145 [facility] Comment on above: Performed By: #### R ENAL #### [facility] [address] [place] [address] Urea nitrogen [Mass/Vol] 5 mg/dL Low 6 - 23 [facility] Comment on above: Performed By: #### R ENAL #### [facility] [address] [place] [address] Consult - Neuro-Surgeryon Consult - Neuro-Surgery Service: [...] Updated: 07-Jun-2022 11:22 by Perez Carlisle) Normal [facility] NR CT L-SPINE WO CONTRASTon 06-07-[address] L-SPINE WO CONTRAST Patient Name: MORALES LEE STUDY: CT T-SPINE WO CONTRAST; CT L-SPINE WO CONTRAST 06/06/2022 11:03 pm INDICATION: ok, Lie Flat: Yes COMPARISON: 09/20/2021 MRI and 09/18/2021 CT ACCESSION NUMBER(S): [id number]; [id number] ORDERING CLINICIAN: CANDICE PEREZ TECHNIQUE: Axial CT [...] osseous spinal canal or neural foraminal stenosis. [id number] spinal canal and neural foraminal narrowing described [...] Electronically signed by: CELI MCNEIL DO Normal [facility] NR CT T-SPINE WO CONTRASTon 06-07-[address] T-SPINE WO CONTRAST Patient Name: MORALES LEE STUDY: CT T-SPINE WO CONTRAST; CT L-SPINE WO CONTRAST 06/06/2022 11:03 pm INDICATION: ok, Lie Flat: Yes COMPARISON: 09/20/2021 MRI and 09/18/2021 CT ACCESSION NUMBER(S): [id number]; [id number] ORDERING CLINICIAN: CANDICE PEREZ TECHNIQUE: Axial CT [...] osseous spinal canal or neural foraminal stenosis. Uwpt-[id number] spinal canal and neural foraminal narrowing described [...] view. Electronically signed by: DO Andrei TOURE [facility] Provider Note - ED Care Diaz [...] 21-Jun-2022 06:18 by Yony Aguirre () Normal [facility] Provider Note - ED v3on 10-0 [...] - M21.37 (more content not included)... Normal [facility] Triage - EDon 06-06-2022 Triage - [...] obeys commands Best Verbal Response: (V5) oriented [place] Score: 15 Mask applied: yes Patient has [...] 06-Jun-2022 19:07 by Meghan Chavez (MERA) Normal [facility] CULTURE URINEon 05-10-2022 CULTURE URINE Isolate [...] F Trimethoprim/Sulfamethoxa zole <=20 S F Normal [facility] Comment on above: Performed By: #### U MICRO, ERUR #### [facility] [address] [place] [address] Dr. Alfredo Lizama CBC AUTO DIFFon 05-07-2022 BASO # 0.1 103/ul Normal 0.0-0.1 [facility] Comment on above: Performed By: #### U MICRO, ERUR #### [facility] [address] [place] [address] Dr. Alfredo Lizama Basophils/100 WBC (Bld) 0.5 % Normal 0.2-2.0 [facility] Comment on above: Performed By: #### U MICRO, ERUR #### [facility] [address] [place] [address] Dr. Alfredo Lizama EO # 0.4 103/ul Normal 0.0-0.7 [facility] Comment on above: Performed By: #### U MICRO, ERUR #### [facility] [address] [place] [address] Dr. Alfredo Lizama Eosinophils/100 WBC (Bld) 3.5 % Normal 0.9-7.0 [facility] Comment on above: Performed By: #### U MICRO, ERUR #### [facility] [address] [place] [address] Dr. Alfredo Lizama Erythrocyte distribution width (RBC) [Ratio] 13.2 % Normal 11.0-15.0 [facility] Comment on above: Performed By: #### U MICRO, ERUR #### [facility] [address] [place] [address] Dr. Alfredo Lizama Hematocrit (Bld) [Volume fraction] 44.0 % Normal 36.0-48.0 [facility] Comment on above: Performed By: #### U MICRO, ERUR #### [facility] [address] [address] [address] Alfredo Lizama Hemoglobin (Bld) [Mass/Vol] 14.8 g/dL Normal 12.0-16.0 [facility] Comment on above: Performed By: #### U MICRO, ERUR #### [facility] [address] [place] [address] Dr. Alfredo Lizama IG # 0.03 10e3/ul Normal 0.00-0.03 [facility] Comment on above: Performed By: #### U MICRO, ERUR #### [facility] [address] [place] [address] Dr. Alfredo Lizama IG % 0.2 % Normal 0.0-0.5 [facility] Comment on above: Performed By: #### U MICRO, ERUR #### [facility] [address] [place] [address] Dr. Alfredo Lizama LYMPH # 3.8 103/ul Normal 1.2-3.8 [facility] Comment on above: Performed By: #### U MICRO, ERUR #### [facility] [address] [place] [address] Dr. Alfredo Lizama Lymphocytes/100 WBC (Bld) 31.3 % Normal 20.5-60.0 [facility] Comment on above: Performed By: #### U MICRO, ERUR #### [facility] [address] [place] [address] Dr. Alfredo Lizama MANUAL DIFF REQ NO Normal [facility] Comment on above: Performed By: #### U MICRO, ERUR #### [facility] [address] [place] [address] Dr. Alfredo Lizama MCH (RBC) [Entitic mass] 28.8 pg Normal 26.7-34.0 [facility] Comment on above: Performed By: #### U MICRO, ERUR #### [facility] [address] [place] [address] Dr. Alfredo Lizama MCHC (RBC) [Mass/Vol] 33.6 g/dL Normal 29.9-35.2 [facility] Comment on above: Performed By: #### U MICRO, ERUR #### [facility] [address] [place] [address] Dr. Alfredo Lizama MCV (RBC) [Entitic vol] 85.8 fL Normal 81.0-99.0 [facility] Comment on above: Performed By: #### U MICRO, ERUR #### [facility] [address] [place] [address] Dr. Alfredo Lizama MONO # 0.7 103/ul Normal 0.3-0.8 [facility] Comment on above: Performed By: #### U MICRO, ERUR #### [facility] [address] [place] [address] Dr. Alfredo Lizama Monocytes/100 WBC (Bld) 5.8 % Normal 1.7-12.0 [facility] Comment on above: Performed By: #### U MICRO, ERUR #### [facility] [address] [place] [address] Dr. Alfredo Lizama NEUT # 7.1 103/ul Critically high 1.4-6.5 [facility] Comment on above: Performed By: #### U MICRO, ERUR #### [facility] [address] [place] [address] Dr. Alfredo Lizama Neutrophils/100 WBC (Bld) 58.7 % Normal 43.0-75.0 [facility] Comment on above: Performed By: #### U MICRO, ERUR #### [facility] [address] [place] [address] Dr. Alfredo Lizama Platelet mean volume (Bld) [Entitic vol] 9.6 fL Normal 9.5-13.5 [facility] Comment on above: Performed By: #### U MICRO, ERUR #### [facility] [address] [place] [address] Dr. Alfredo Lizama PLT 269 103/ul Normal 150-450 [facility] Comment on above: Performed By: #### U MICRO, ERUR #### [facility] [address] [place] [address] Dr. Alfredo Lizama RBC 5.13 106/ul Normal 4.20-5.40 [facility] Comment on above: Performed By: #### U MICRO, ERUR #### [facility] [address] [place], [place] [address] Dr. Alfredo Lizama WBC 12.2 103/ul Critically high 4.0-11.0 [facility] Comment on above: Performed By: #### U MICRO, ERUR #### [facility] [address] [place], [place] [address] ABD/PELV W CONon [...] Date: 2022-05-07 14:00 Normal [facility] ER URINE PROFILEon 2 Bilirubin Ql (U) Negative Normal NEGATIVE [facility] Comment on above: Performed By: #### U MICRO, ERUR #### [facility] [address] [place] [address] Dr. Alfredo Lizama Clarity (U) CLOUDY Abnormal CLEAR [facility] Comment on above: Performed By: #### U MICRO, ERUR #### [facility] [address] [place] [address] Dr. Alfredo Lizama Color (U) LT. YELLOW Normal YELLOW [facility] Comment on above: Performed By: #### U MICRO, ERUR #### [facility] [address] [place] [address] Dr. Alfredo Lizama ERUBYROND A micrscopic examina tion will be performed if indicated. Normal [facility] Comment on above: Performed By: #### U MICRO, ERUR #### [facility] [address] [place] [address] Dr. Alfredo Lizama Glucose Ql (U) Negative Normal NEGATIVE [facility] Comment on above: Performed By: #### U MICRO, ERUR #### [facility] [address] [place] [address] Dr. Alfredo Lizama Hemoglobin Ql (U) LARGE Abnormal NEGATIVE [facility] Comment on above: Performed By: #### U MICRO, ERUR #### [facility] [address] [place] [address] Dr. Alfredo Lizama Ketones Ql (U) Negative Normal NEGATIVE [facility] Comment on above: Performed By: #### U MICRO, ERUR #### [facility] [address] [place] [address] Dr. Alfredo Lizama LEUKOCYTES MODERATE Abnormal NEGATIVE [facility] Comment on above: Performed By: #### U MICRO, ERUR #### [facility] [address] [address] [address] Alfredo Lizama Nitrite Ql (U) Positive Abnormal NEGATIVE [facility] Comment on above: Performed By: #### U MICRO, ERUR #### [facility] [address] [place] [address] Dr. Alfredo Lizama pH (U) 8.5 [pH] Normal 5-9 [facility] Comment on above: Performed By: #### U MICRO, ERUR #### [facility] [address] [place] [address] Dr. Alfredo Lizama Protein (U) [Mass/Vol] 100 mg/dL Abnormal NEGAT LATISHA/ TRACE [facility] Comment on above: Performed By: #### U MICRO, ERUR #### [facility] [address] [place] [address] Dr. Alfredo Lizama SPEC GRAVITY 1.015 Normal 1.005-<=1. 025 [facility] Comment on above: Performed By: #### U MICRO, ERUR #### [facility] [address] [place] [address] Dr. Alfredo Lizama UR MICRO IND INDICATED Normal [facility] Comment on above: Performed By: #### U MICRO, ERUR #### [facility] [address] [place] [address] Dr. Alfredo Lizama Urobilinogen Qn (U) 1.0 {Tesha'U}/dL Normal 0.2 - 1. 0 [facility] Comment on above: Performed By: #### U MICRO, ERUR #### [facility] [address] [place] [address] Dr. Alfredo Lizama PROF CHEM 8 (BAS METB)on Anion gap [Moles/Vol] 12.0 mmol/L Normal Th e [facility] Comment on above: Performed By: #### U MICRO, ERUR #### [facility] [address] [address] [address] Alfredo Lizama Calcium [Mass/Vol] 8.6 mg/dL Normal 8.5-10.1 [facility] Comment on above: Performed By: #### U MICRO, ERUR #### [facility] [address] [place] [address] Dr. Alfredo Lizama Chloride [Moles/Vol] 101 mmol/L Normal 98-107 [facility] Comment on above: Performed By: #### U MICRO, ERUR #### [facility] [address] [place] [address] Dr. Alfredo Lizama CO2 [Moles/Vol] 28.0 mmol/L Normal 21.0-32.0 [facility] Comment on above: Performed By: #### U MICRO, ERUR #### [facility] [address] [place] [address] Dr. Alfredo Lizama Creatinine [Mass/Vol] 0.77 mg/dL Normal 0.55-1.02 [facility] Comment on above: Performed By: #### U MICRO, ERUR #### [facility] [address] [place] [address] Dr. Alfredo Lizama EGFR-AF MAURITIAN >60 Normal >=60 [facility] Comment on above: Performed By: #### U MICRO, ERUR #### [facility] [address] [place] [address] Dr. Alfredo Lizama EGFR-NON AF MAURITIAN >60 Normal >=60 [facility] Comment on above: Performed By: #### U MICRO, ERUR #### [facility] [address] [place] [address] Dr. Alfredo Lizama Glucose [Mass/Vol] 96 mg/dL Normal 74-106 [facility] Comment on above: Performed By: #### U MICRO, ERUR #### [facility] [address] [place] [address] Dr. Alfredo Lizama Potassium [Moles/Vol] 4.0 mmol/L Normal 3.5-5.1 [facility] Comment on above: Performed By: #### U MICRO, ERUR #### [facility] [address] [address] [address] Alfredo Lizama Sodium [Moles/Vol] 137 mmol/L Normal 136-145 [facility] Comment on above: Performed By: #### U MICRO, ERUR #### [facility] [address] [place] [address] Dr. Alfredo Lizama Urea nitrogen [Mass/Vol] 7.0 mg/dL Normal 7.0-18.0 [facility] Comment on above: Performed By: #### U MICRO, ERUR #### [facility] [address] [place] [address] Dr. Alfredo Lizama Urea nitrogen/Creatinine [Mass ratio] 9.1 mg/mg Normal [facility] Comment on above: Performed By: #### U MICRO, ERUR #### [facility] [address] [place] [address] Dr. Alfredo Lizama URINE MICROSCOPIC ONLYon BACTERIA MODERATE Abnormal NONE SEEN [facility] Comment on above: Performed By: #### U MICRO, ERUR #### [facility] [address] [place] [address] Dr. Alfredo Lizama Bacteria identified Cx Nom (U) INDICATED Normal [facility] Comment on above: Performed By: #### U MICRO, ERUR #### [facility] [address] [place] [address] Dr. Alfredo Lizama CAST NONE SEEN Normal NONE SEEN [facility] Comment on above: Performed By: #### U MICRO, ERUR #### [facility] [address] [place] [address] Dr. Alfredo Lizama Crystals LM Nom (Urine sed) NONE SEEN Normal NONE SEEN [facility] Comment on above: Performed By: #### U MICRO, ERUR #### [facility] [address] [place] [address] Dr. Alfredo Lizama Epithelial cells LM Ql (Urine sed) FEW Abnormal NONE SEEN /RARE [facility] Comment on above: Performed By: #### U MICRO, ERUR #### [facility] [address] [address] [address] Alfredo Lizama MUCOUS NONE SEEN Normal NONE SEEN [facility] Comment on above: Performed By: #### U MICRO, ERUR #### [facility] [address] [place] [address] Dr. Alfredo Lizama RBC 2-5 Abnormal 0-2 [facility] Comment on above: Performed By: #### U MICRO, ERUR #### [facility] [address] [address] [address] Alfredo Lizama WBC 10-20 Abnormal NONE SEEN [facility] Comment on above: Performed By: #### U MICRO, ERUR #### [facility] [address] [place] [address] Dr. Alfredo Lizama CULTURE URINEon 04-10-2022 CULTURE [...] Trimethoprim/Sulfamethoxa zole <=20 S F Normal [facility] Comment on above: Performed By: #### U MICRO, ERUR #### [facility] [address] [address] [address] Alfredo SANDY URINE PROFILEon 2 Bilirubin Ql (U) Negative Normal NEGATIVE [facility] Comment on above: Performed By: #### U MICRO, ERUR #### [facility] [address] [address] [address] Alfredo Lizama Clarity (U) CLOUDY Abnormal CLEAR [facility] Comment on above: Performed By: #### U MICRO, ERUR #### [facility] [address] [address] [address] Alfredo Lizama Color (U) YELLOW Normal YELLOW [facility] Comment on above: Performed By: #### U MICRO, ERUR #### [facility] [address] [place] [address] Dr. Alfredo Lizama ERUAHD A micrscopic examina tion will be performed if indicated. Normal [facility] Comment on above: Performed By: #### U MICRO, ERUR #### [facility] [address] [address] [address] Alfredo Lizama Glucose Ql (U) Negative Normal NEGATIVE [facility] Comment on above: Performed By: #### U MICRO, ERUR #### [facility] [address] [place] [address] Dr. Alfredo Lizama Hemoglobin Ql (U) SMALL Abnormal NEGATIVE [facility] Comment on above: Performed By: #### U MICRO, ERUR #### [facility] [address] [address] [address] Alfredo Lizama Ketones Ql (U) Negative Normal NEGATIVE [facility] Comment on above: Performed By: #### U MICRO, ERUR #### [facility] [address] [address] [address] Alfredo Lizama LEUKOCYTES LARGE Abnormal NEGATIVE [facility] Comment on above: Performed By: #### U MICRO, ERUR #### [facility] [address] [address] [address] Alfredo Lizama Nitrite Ql (U) Negative Normal NEGATIVE [facility] Comment on above: Performed By: #### U MICRO, ERUR #### [facility] [address] [place] [address] Dr. Alfredo Lizama pH (U) 7.0 [pH] Normal 5-9 [facility] Comment on above: Performed By: #### U MICRO, ERUR #### [facility] [address] [place] [address] Dr. Alfredo Lizama SPEC GRAVITY <=1.005 Abnormal 1.005-<=1. 025 [facility] Comment on above: Performed By: #### U MICRO, ERUR #### [facility] [address] [place] [address] Dr. Alfredo Lizama UA PROTEIN Negative Normal NEGATIVE/ TRACE [facility] Comment on above: Performed By: #### U MICRO, ERUR #### [facility] [address] [place] [address] Dr. Alfredo Lizama UR MICRO IND INDICATED Normal [facility] Comment on above: Performed By: #### U MICRO, ERUR #### [facility] [address] [place] [address] Dr. Alfredo Lizama Urobilinogen Qn (U) 0.2 {Tesha'U}/dL Normal 0.2 - 1. 0 [facility] Comment on above: Performed By: #### U MICRO, ERUR #### [facility] [address] [place] [address] Dr. Alfredo Lizama URINE MICROSCOPIC ONLYon BACTERIA MODERATE Abnormal NONE SEEN [facility] Comment on above: Performed By: #### U MICRO, ERUR #### [facility] [address] [place] [address] Dr. Alfredo Lizama Bacteria identified Cx Nom (U) INDICATED Normal [facility] Comment on above: Performed By: #### U MICRO, ERUR #### [facility] [address] [place] [address] Dr. Alfredo Lizama CAST NONE SEEN Normal NONE SEEN [facility] Comment on above: Performed By: #### U MICRO, ERUR #### [facility] [address] [address] [address] Alfredo Lizama Crystals LM Nom (Urine sed) NONE SEEN Normal NONE SEEN [facility] Comment on above: Performed By: #### U MICRO, ERUR #### [facility] [address] [address] [address] Alfredo Lizama Epithelial cells LM Ql (Urine sed) FEW Abnormal NONE SEEN /RARE [facility] Comment on above: Performed By: #### U MICRO, ERUR #### [facility] [address] [address] [address] Alfredo Lizama MUCOUS NONE SEEN Normal NONE SEEN [facility] Comment on above: Performed By: #### U MICRO, ERUR #### [facility] [address] [address] [address] Alfredo Lizama RBC 5-10 Abnormal 0-2 [facility] Comment on above: Performed By: #### U MICRO, ERUR #### [facility] [address] [address] [address] Alfredo Lizama WBC (U) [#/Vol] /uL Abnormal NONE SEEN [facility] Comment on above: Performed By: #### U MICRO, ERUR #### [facility] [address] [address] [address] Alfredo Lizama Basic Metabolic Panelon 11-03 Calcium [Mass/Vol] 8.9 mg/dL Normal 8.2-10.2 [facility] Comment on above: Performed By: #### C BC, CMP, PAB #### [facility] [address] [place] [address] [place] Chloride [Moles/Vol] 101 mmol/L Normal 95-114 [facility] Comment on above: Performed By: #### C BC, CMP, PAB #### [facility] [address] [place] [address] [place] CO2 [Moles/Vol] 29.0 mmol/L Normal 22.0-30.0 [facility] Comment on above: Performed By: #### C BC, CMP, PAB #### [facility] [address] Creatinine [Mass/Vol] 0.48 mg/dL Normal 0.44-1.03 [facility] Comment on above: Performed By: #### C DARIUS PATEL, PAB #### [address] Creatinine Clr Calc Pharmacy 150.29 [facility] Comment on above: Result Comment: PERF ORMED BY: [place] [address] PATHOLOGIST AUDIOVISUAL LIBRARIAN HUY COX M.D. Performed By: #### C DARIUS PATEL, PAB #### [facility] [address] Estimated GFR ( July > 60 [facility] Comment on above: Result Comment: GFR estimated reference range: According to KDOQI guidelines, <60 ml/min/1.73m2 is sufficient to diagnose a patient with chronic kidney disease. Performed By: #### C DARIUS PATEL, PAB #### [address] Estimated GFR (Non- Am > 60 [facility] Comment on above: Performed By: #### C DARIUS PATEL, PAB #### [address] Glucose [Mass/Vol] 111 mg/dL High 70-100 [facility] Comment on above: Result Comment: [place] Glucose Reference Range is dependent on time and content of last meal. Glucose of more than 200 mg/dL in a nonstressed, ambulatory subject supports the diagnosis of Diabetes Mellitus. ADA recommended reference range Performed By: #### C DARIUS PATEL, PAB #### [facility] [address] Potassium [Moles/Vol] 3.6 mmol/L Normal 3.5-5.1 [facility] Comment on above: Performed By: #### C DARIUS PATEL, PAB #### [facility] [address] Sodium [Moles/Vol] 138 mmol/L Normal 136-146 [facility] Comment on above: Performed By: #### C BC, CMP, PAB #### [facility] [address] Urea nitrogen [Mass/Vol] 10 mg/dL Normal 9- [facility] Comment on above: Performed By: #### C BC, CMP, PAB #### [facility] [address] Complete Blood Count Auto Di ffon 11-19-2021 Basophils (Bld) [#/Vol] 0.1 10*3/uL Normal 0.0-0.2 [facility] Comment on above: Result Comment: PERF ORMED BY: [place] [address] PATHOLOGIST AUDIOVISUAL LIBRARIAN HUY COX M.D. Performed By: #### C BC, CMP, PAB #### [address] Basophils/100 WBC (Bld) 0.8 % Normal . [facility] Comment on above: Performed By: #### C BC, CMP, PAB #### [facility] [address] [place] [address] [place] Eosinophils (Bld) [#/Vol] 0.4 10*3/uL Normal 0.0-0.45 [facility] Comment on above: Performed By: #### C BC, CMP, PAB #### [place] [address] [place] Eosinophils/100 WBC (Bld) 5.8 % Normal . [facility] Comment on above: Performed By: #### C BC, CMP, PAB #### [facility] [address] Erythrocyte distribution width (RBC) [Ratio] 14.3 % Normal 11.9-15.3 [facility] Comment on above: Performed By: #### C BC, CMP, PAB #### [facility] [address] Hematocrit (Bld) [Volume fraction] 36.0 % Normal 34.0-46.4 [facility] Comment on above: Performed By: #### C BC, CMP, PAB #### [facility] [address] [place] [address] [place] Hemoglobin (Bld) [Mass/Vol] 11.9 g/dL Normal 11.8-15.4 [facility] Comment on above: Performed By: #### C BC, CMP, PAB #### [facility] [address] Lymphocytes (Bld) [#/Vol] 2.7 10*3/uL Normal 1.00-4.8 [facility] Comment on above: Performed By: #### C BC, CMP, PAB #### [facility] [address] Lymphocytes/100 WBC (Bld) 37.6 % Normal . [facility] Comment on above: Performed By: #### C BC, CMP, PAB #### [facility] [address] MCH (RBC) [Entitic mass] 28.1 pg Normal 24.7-34.3 [facility] Comment on above: Performed By: #### C BC, CMP, PAB #### [facility] [address] [place] [address] [place] MCV (RBC) [Entitic vol] 85.3 fL Normal 80-100 [facility] Comment on above: Performed By: #### C BC, CMP, PAB #### [facility] [address] Mean Corpuscular HGB Conc 32.9 g/dL Normal 32.0-35.0 [facility] Comment on above: Performed By: #### C BC, CMP, PAB #### [facility] [address] [place] [address] [place] Monocytes (Bld) [#/Vol] 0.4 10*3/uL Normal 0.0-0.8 [facility] Comment on above: Performed By: #### C BC, CMP, PAB #### [facility] [address] [place] [address] [place] Monocytes/100 WBC (Bld) 5.2 % Normal . [facility] Comment on above: Performed By: #### C BC, CMP, PAB #### [facility] [address] [place] [address] [place] Neutrophils (Bld) [#/Vol] 3.7 10*3/uL Normal 1.8-7.7 [facility] Comment on above: Performed By: #### C BC, CMP, PAB #### [facility] [address] Neutrophils/100 WBC (Bld) 50.6 % Normal . [facility] Comment on above: Performed By: #### C BC, CMP, PAB #### [facility] [address] Nucleated RBC/100 WBC (Bld) [Ratio] 0.0 % Normal 0-0.5 [facility] Comment on above: Performed By: #### C BC, CMP, PAB #### [facility] [address] Platelet mean volume (Bld) [Entitic vol] 7.6 fL Normal 6.3-10.7 [facility] Comment on above: Performed By: #### C BC, CMP, PAB #### [facility] [address] Platelets (Bld) [#/Vol] 252 10*3/uL Normal 150-450 [facility] Comment on above: Performed By: #### C BC, CMP, PAB #### [facility] [address] [place] [address] [place] RBC (Bld) [#/Vol] 4.22 10*6/uL Normal 3.60-5.00 [facility] Comment on above: Performed By: #### C BC, CMP, PAB #### [facility] [address] [place] [address] [place] WBC (Bld) [#/Vol] 7.2 10*3/uL Normal 4.5-11.0 [facility] Comment on above: Performed By: #### C BC, CMP, PAB #### [facility] [address] [place] [address] [place] Ammoniaon 11-11-2021 Ammonia (P) [Moles/Vol] 26 umol/L Normal 11-35 [facility] Comment on above: Result Comment: PERF ORMED BY: [place] [address] PATHOLOGIST AUDIOVISUAL LIBRARIAN HUY COX M.D. Performed By: #### C BC, CMP, PAB #### [address] Hepatic Panelon 11-11-2021 Albumin [Mass/Vol] 3.0 g/dL Low 3.2-5.5 [facility] Comment on above: Performed By: #### C BC, CMP, PAB #### [address] Albumin/Globulin [Mass ratio] 1.0 {ratio} Normal [facility] Comment on above: Performed By: #### C BC, CMP, PAB #### [address] ALP [Catalytic activity/Vol] 187 U/L High 32-92 [facility] Comment on above: Result Comment: PERF ORMED BY: [place] [address] PATHOLOGIST AUDIOVISUAL LIBRARIAN HUY COX M.D. Performed By: #### C BC, CMP, PAB #### [address] ALT [Catalytic activity/Vol] 54 U/L Normal 10-60 [facility] Comment on above: Performed By: #### C BC, CMP, PAB #### [address] AST [Catalytic activity/Vol] 39 U/L Normal 10-42 [facility] Comment on above: Performed By: #### C BC, CMP, PAB #### [address] Bilirubin [Mass/Vol] 0.3 mg/dL Normal 0.3-1.2 [facility] Comment on above: Performed By: #### C BC, CMP, PAB #### [facility] [address] [place] [address] Bilirubin,Indirect Not performed Normal [facility] Comment on above: Performed By: #### C BC, CMP, PAB #### [facility] [address] Bilirubin.indirect [Mass/Vol] mg/dL Normal 0.0-0.4 [facility] Comment on above: Performed By: #### C BC, CMP, PAB #### [facility] [address] [place] [address] Globulin (S) [Mass/Vol] 3.0 g/dL Normal [facility] Comment on above: Performed By: #### C BC, CMP, PAB #### [address] Protein [Mass/Vol] 6.0 g/dL Low 6.1-7.9 [facility] Comment on above: Performed By: #### C BC, CMP, PAB #### [address] Hepatitis Acute Panelon 03-0 HBsAg Screen Negative Normal Negative [facility] Comment on above: Performed By: #### C BC, CMP, PAB #### [address] Hepatitis A Antibody IgM Negative Normal Negative [facility] Comment on above: Performed By: #### C BC, CMP, PAB #### [facility] [address] [place] [address] Hepatitis B Core Antibody IgM Negative Normal Negative [facility] Comment on above: Performed By: #### C BC, CMP, PAB #### [facility] [address] [place] [address] Hepatitis C Virus Antibody 0.2 Normal 0.0-0.9 [facility] Comment on above: Performed By: #### C BC, CMP, PAB #### [facility] [address] [place] [address] Interpretation Hepatitis C Normal . [facility] Comment on above: Result Comment: Dov chun Not infected with HCV, unless recent infection is suspected or other evidence exists to indicate HCV infection. Performed at: - [facility] [address] [id number] Branch Director: Pedro Luis José PhD, Phone: [phone] PERFORMED BY: [place] [address] PATHOLOGIST AUDIOVISUAL LIBRARIAN HUY COX M.D. Performed By: #### C BC, CMP, PAB #### [address] [place] liveron 11-11-2021 liver [facility] [place] [address] [place] [address] Ultrasound Report Signed Patient: Morales Lee MR#: [id number] : 1975 Acct:[id number] Age/Sex: 46 / F ADM Date: 10/29/21 Loc: Room: [address] [place] [address] Type: ADM IN Attending Dr: Richard Acevedo [...] M.D.11/11/2021 10:23 AM Dictation Location: [place] [address] Tech: Ermelinda Diaz Transcribed By: CORTNEY 11/11/21 1023 Dictated By: Alexandru Pond DO 11/11/21 1018 Signed By: 11/11/[address] [facility] Complete Blood Count Auto Di ffon 11-10-2021 Basophils (Bld) [#/Vol] 0.1 10*3/uL Normal 0.0-0.2 [facility] Comment on above: Result Comment: PERF ORMED BY: [place] [address] PATHOLOGIST AUDIOVISUAL LIBRARIAN HUY COX M.D. Performed By: #### C BC #### [address] Basophils/100 WBC (Bld) 1.2 % Normal . [facility] Comment on above: Performed By: #### C BC #### [address] Eosinophils (Bld) [#/Vol] 0.3 10*3/uL Normal 0.0-0.45 [facility] Comment on above: Performed By: #### C BC #### [address] Eosinophils/100 WBC (Bld) 5.9 % Normal . [facility] Comment on above: Performed By: #### C BC #### [address] Erythrocyte distribution width (RBC) [Ratio] 14.2 % Normal 11.9-15.3 [facility] Comment on above: Performed By: #### C BC #### [address] Hematocrit (Bld) [Volume fraction] 37.1 % Normal 34.0-46.4 [facility] Comment on above: Performed By: #### C BC #### [address] Hemoglobin (Bld) [Mass/Vol] 12.3 g/dL Normal 11.8-15.4 [facility] Comment on above: Performed By: #### C BC #### [address] Lymphocytes (Bld) [#/Vol] 2.0 10*3/uL Normal 1.00-4.8 [facility] Comment on above: Performed By: #### C BC #### [address] [address] Lymphocytes/100 WBC (Bld) 36.5 % Normal . [facility] Comment on above: Performed By: #### C BC #### [address] MCH (RBC) [Entitic mass] 28.6 pg Normal 24.7-34.3 [facility] Comment on above: Performed By: #### C BC #### [address] MCV (RBC) [Entitic vol] 86.5 fL Normal 80-100 [facility] Comment on above: Performed By: #### C BC #### [address] Mean Corpuscular HGB Conc 33.1 g/dL Normal 32.0-35.0 [facility] Comment on above: Performed By: #### C BC #### [address] Monocytes (Bld) [#/Vol] 0.3 10*3/uL Normal 0.0-0.8 [facility] Comment on above: Performed By: #### C BC #### [address] Monocytes/100 WBC (Bld) 5.3 % Normal . [facility] Comment on above: Performed By: #### C BC #### [place] [address] [place] Neutrophils (Bld) [#/Vol] 2.8 10*3/uL Normal 1.8-7.7 [facility] Comment on above: Performed By: #### C BC #### [place] [address] [place] Neutrophils/100 WBC (Bld) 51.1 % Normal . [facility] Comment on above: Performed By: #### C BC #### [address] Nucleated RBC/100 WBC (Bld) [Ratio] 0.1 % Normal 0-0.5 [facility] Comment on above: Performed By: #### C BC #### [address] Platelet mean volume (Bld) [Entitic vol] 7.8 fL Normal 6.3-10.7 [facility] Comment on above: Performed By: #### C BC #### [address] Platelets (Bld) [#/Vol] 214 10*3/uL Normal 150-450 [facility] Comment on above: Performed By: #### C BC #### [address] RBC (Bld) [#/Vol] 4.28 10*6/uL Normal 3.60-5.00 [facility] Comment on above: Performed By: #### C BC #### [address] WBC (Bld) [#/Vol] 5.4 10*3/uL Normal 4.5-11.0 [facility] Comment on above: Performed By: #### C BC #### [address] Comprehensive Metabolic Pane shree 11-10-2021 Albumin [Mass/Vol] 2.9 g/dL Low 3.2-5.5 [facility] Comment on above: Performed By: #### C BC, CMP, PAB #### [address] Albumin/Globulin [Mass ratio] 0.9 {ratio} Normal [facility] Comment on above: Performed By: #### C BC, CMP, PAB #### [address] ALP [Catalytic activity/Vol] 201 U/L High 32-92 [facility] Comment on above: Performed By: #### C BC CMP, PAB #### [facility] [address] ALT [Catalytic activity/Vol] 67 U/L High 10-60 [facility] Comment on above: Performed By: #### C BC, CMP, PAB #### [facility] [address] AST [Catalytic activity/Vol] 66 U/L High 10-42 [facility] Comment on above: Performed By: #### C BC, CMP, PAB #### [facility] [address] Bilirubin [Mass/Vol] 0.4 mg/dL Normal 0.3-1.2 [facility] Comment on above: Performed By: #### C BC, CMP, PAB #### [facility] [address] Calcium [Mass/Vol] 8.7 mg/dL Normal 8.2-10.2 [facility] Comment on above: Performed By: #### C BC CMP, PAB #### [facility] [address] Chloride [Moles/Vol] 100 mmol/L Normal 95-114 [facility] Comment on above: Performed By: #### C BC, CMP, PAB #### [facility] [address] CO2 [Moles/Vol] 26.4 mmol/L Normal 22.0-30.0 [facility] Comment on above: Performed By: #### C BC, CMP, PAB #### [facility] [address] [place] [address] [place] Creatinine [Mass/Vol] 0.50 mg/dL Normal 0.44-1.03 [facility] Comment on above: Performed By: #### C BC, CMP, PAB #### [facility] [address] [place] [address] [place] Creatinine Clr Calc Pharmacy 142.[address] [facility] Comment on above: Result Comment: PERF ORMED BY: [place] [address] PATHOLOGIST AUDIOVISUAL LIBRARIAN HUY COX M.D. Performed By: #### C BC, CMP, PAB #### [address] Estimated GFR ( July > 60 [facility] Comment on above: Result Comment: GFR estimated reference range: According to KDOQI guidelines, <60 ml/min/1.73m2 is sufficient to diagnose a patient with chronic kidney disease. Performed By: #### C BC, CMP, PAB #### [address] Estimated GFR (Non- Am > 60 [facility] Comment on above: Performed By: #### C BC, CMP, PAB #### [address] Globulin (S) [Mass/Vol] 3.1 g/dL Normal [facility] Comment on above: Performed By: #### C BC, CMP, PAB #### [address] Glucose [Mass/Vol] 110 mg/dL High 70-100 [facility] Comment on above: Result Comment: [place] Glucose Reference Range is dependent on time and content of last meal. Glucose of more than 200 mg/dL in a nonstressed, ambulatory subject supports the diagnosis of Diabetes Mellitus. ADA recommended reference range Performed By: #### C BC, CMP, PAB #### [address] Potassium [Moles/Vol] 4.0 mmol/L Normal 3.5-5.1 [facility] Comment on above: Performed By: #### C BC, CMP, PAB #### [address] Protein [Mass/Vol] 6.0 g/dL Low 6.1-7.9 [facility] Comment on above: Performed By: #### C BC, CMP, PAB #### [facility] [address] [place] [id number] [place] Sodium [Moles/Vol] 136 mmol/L Normal 136-146 [facility] Comment on above: Performed By: #### C BC, CMP, PAB #### [facility] [address] [place] [phone] [place] Urea nitrogen [Mass/Vol] 8 mg/dL Low 9-23 [facility] Comment on above: Performed By: #### C BC, CMP, PAB #### [facility] [address] [place] [address] [place] Dipstick and Microscopicon 0 11-10-2021 Appearance (U) Turbid Critically abnormal Clear [facility] Comment on above: Order Comment: Name Collection Type:: Alvares Catheter Performed By: #### C BC, CMP, PAB #### [facility] [address] [place] [address] [place] Bacteria,Urine 3+ High None Seen [facility] Comment on above: Order Comment: Name Collection Type:: Alvares Catheter Performed By: #### C BC, CMP, PAB #### [facility] [address] [place] [address] [place] Bilirubin,Urine Negative Normal Negative [facility] Comment on above: Order Comment: Name Collection Type:: Alvares Catheter Performed By: #### C BC, CMP, PAB #### [facility] [address] [place] [phone] [place] Color (U) Yellow Normal Yellow [facility] Comment on above: Order Comment: Name Collection Type:: Alvares Catheter Performed By: #### C BC, CMP, PAB #### [facility] [address] [place] [phone] [place] Glucose Ql (U) Normal Normal Normal [facility] Comment on above: Order Comment: Name Collection Type:: Alvares Catheter Performed By: #### C BC, CMP, PAB #### [facility] [address] [place] [phone] [place] Hyaline Casts,Urine None Seen Normal 0-1 [facility] Comment on above: Order Comment: Name Collection Type:: Alvares Catheter Performed By: #### C BC, CMP, PAB #### [facility] [address] [place] [address] [place] Ketones Ql (U) Negative Normal Negative [facility] Comment on above: Order Comment: Name Collection Type:: Alvares Catheter Performed By: #### C BC, CMP, PAB #### [facility] [address] [place] [address] Leukocyte esterase Test strip Ql (U) 3+ High Negative [facility] Comment on above: Order Comment: Name Collection Type:: Alvares Catheter Performed By: #### C BC, CMP, PAB #### [address] Nitrite,Urine Positive High Negative [facility] Comment on above: Order Comment: Name Collection Type:: Alvares Catheter Performed By: #### C BC, CMP, PAB #### [address] Occult Blood,Urine 2+ High Negative [facility] Comment on above: Order Comment: Name Collection Type:: Alvares Catheter Result Comment: PERF ORMED BY: [place] [address] PATHOLOGIST AUDIOVISUAL LIBRARIAN HUY COX M.D. Performed By: #### C BC, CMP, PAB #### [address] Other Casts,Urine None Seen Normal None Seen [facility] Comment on above: Order Comment: Name Collection Type:: Alvares Catheter Result Comment: PERF ORMED BY: [place] [address] PATHOLOGIST AUDIOVISUAL LIBRARIAN HUY COX M.D. Performed By: #### C BC, CMP, PAB #### [facility] [address] [place] [address] [place] pH (U) 8.5 [pH] Normal 5.0-9.0 [facility] Comment on above: Order Comment: Name Collection Type:: Alvares Catheter Performed By: #### C BC, CMP, PAB #### [address] [address] [place] Protein,Urine Negative Normal Negative [facility] Comment on above: Order Comment: Name Collection Type:: Alvares Catheter Performed By: #### C BC, CMP, PAB #### [facility] [address] [place] [address] RBC,Urine 1-2 Normal 0-4 [facility] Comment on above: Order Comment: Name Collection Type:: Alvares Catheter Performed By: #### C BC, CMP, PAB #### [facility] [address] [place] [address] Specificy [place],Urine 1.006 Normal 1.00 1-1.[address] [facility] Comment on above: Order Comment: Name Collection Type:: Alvares Catheter Performed By: #### C BC, CMP, PAB #### [facility] [address] [place] [address] Squamous Epithelial Cell,Urine 3-4 High 0-2 [facility] Comment on above: Order Comment: Name Collection Type:: Alvares Catheter Performed By: #### C BC, CMP, PAB #### [facility] [address] [place] [address] Triple Phosphate Crystal,Urine 2+ Normal [facility] Comment on above: Order Comment: Name Collection Type:: Alvares Catheter Performed By: #### C BC, CMP, PAB #### [facility] [address] [place] [address] Urobilinogen,Urine Normal Normal Normal [facility] Comment on above: Order Comment: Name Collection Type:: Alvares Catheter Performed By: #### C BC, CMP, PAB #### [facility] [address] [place] [address] [place] WBC,Urine 20-49 High 0-4 [facility] Comment on above: Order Comment: Name Collection Type:: Alvares Catheter Performed By: #### C BC, CMP, PAB #### [facility] [address] [place] [address] [place] Urine Cultureon 11-10-2021 Bacteria identified Cx Nom (U) ORGANISM: Providencia rettgeri (O:PRORET) [place] Count >100,000 Aerobic JOSE Charge (NUC86) SUSCEPTIBILITY [...] RESISTANT TO ALL B-LACTAM DRUGS. PERFORMED BY: [place] [address] PATHOLOGIST AUDIOVISUAL LIBRARIAN HUY COX M.D. [facility] Comment on above: Performed By: #### C BC, CMP, PAB #### [address] Basic Metabolic Panelon 03-0 Calcium [Mass/Vol] 8.7 mg/dL Normal 8.2-10.2 [facility] Comment on above: Performed By: #### B MP, CBC #### [address] Chloride [Moles/Vol] 102 mmol/L Normal 95-114 [facility] Comment on above: Performed By: #### B MP, CBC #### [address] CO2 [Moles/Vol] 25.5 mmol/L Normal 22.0-30.0 [facility] Comment on above: Performed By: #### B MP, CBC #### [address] Creatinine [Mass/Vol] 0.71 mg/dL Normal 0.44-1.03 [facility] Comment on above: Performed By: #### B MP, CBC #### [address] Creatinine Clr Calc Pharmacy 100.08 [facility] Comment on above: Result Comment: PERF ORMED BY: [place] [address] PATHOLOGIST AUDIOVISUAL LIBRARIAN HUY COX M.D. Performed By: #### B MP, CBC #### [address] Estimated GFR ( July > 60 [facility] Comment on above: Result Comment: GFR estimated reference range: According to KDOQI guidelines, <60 ml/min/1.73m2 is sufficient to diagnose a patient with chronic kidney disease. Performed By: #### B MP, CBC #### [address] Estimated GFR (Non- Am > 60 [facility] Comment on above: Performed By: #### B MP, CBC #### [address] Glucose [Mass/Vol] 104 mg/dL High 70-100 [facility] Comment on above: Result Comment: [place] Glucose Reference Range is dependent on time and content of last meal. Glucose of more than 200 mg/dL in a nonstressed, ambulatory subject supports the diagnosis of Diabetes Mellitus. ADA recommended reference range Performed By: #### B MP, CBC #### [address] Potassium [Moles/Vol] 4.1 mmol/L Normal 3.5-5.1 [facility] Comment on above: Performed By: #### B MP, CBC #### [facility] [address] Sodium [Moles/Vol] 137 mmol/L Normal 136-146 [facility] Comment on above: Performed By: #### B MP, CBC #### [facility] [address] Urea nitrogen [Mass/Vol] 10 mg/dL Normal 9-23 [facility] Comment on above: Performed By: #### B MP, CBC #### [address] Complete Blood Count Auto Di ffon 11-06-2021 Basophils (Bld) [#/Vol] 0.1 10*3/uL Normal 0.0-0.2 [facility] Comment on above: Result Comment: PERF ORMED BY: [place] [address] PATHOLOGIST AUDIOVISUAL LIBRARIAN HUY COX M.D. Performed By: #### B MP, CBC #### [address] Basophils/100 WBC (Bld) 0.8 % Normal . [facility] Comment on above: Performed By: #### B MP, CBC #### [address] Eosinophils (Bld) [#/Vol] 0.4 10*3/uL Normal 0.0-0.45 [facility] Comment on above: Performed By: #### B MP, CBC #### [address] Eosinophils/100 WBC (Bld) 5.5 % Normal . [facility] Comment on above: Performed By: #### B MP, CBC #### [address] Erythrocyte distribution width (RBC) [Ratio] 14.2 % Normal 11.9-15.3 [facility] Comment on above: Performed By: #### B MP, CBC #### [address] Hematocrit (Bld) [Volume fraction] 36.0 % Normal 34.0-46.4 [facility] Comment on above: Performed By: #### B MP, CBC #### [address] Hemoglobin (Bld) [Mass/Vol] 12.0 g/dL Normal 11.8-15.4 [facility] Comment on above: Performed By: #### B MP, CBC #### [address] Lymphocytes (Bld) [#/Vol] 2.4 10*3/uL Normal 1.00-4.8 [facility] Comment on above: Performed By: #### B MP, CBC #### [address] Lymphocytes/100 WBC (Bld) 35.2 % Normal . [facility] Comment on above: Performed By: #### B MP, CBC #### [address] MCH (RBC) [Entitic mass] 28.9 pg Normal 24.7-34.3 [facility] Comment on above: Performed By: #### B MP, CBC #### [address] MCV (RBC) [Entitic vol] 86.4 fL Normal 80-100 [facility] Comment on above: Performed By: #### B MP, CBC #### [address] Mean Corpuscular HGB Conc 33.4 g/dL Normal 32.0-35.0 [facility] Comment on above: Performed By: #### B MP, CBC #### [address] Monocytes (Bld) [#/Vol] 0.3 10*3/uL Normal 0.0-0.8 [facility] Comment on above: Performed By: #### B MP, CBC #### [place] [address] [place] Monocytes/100 WBC (Bld) 4.8 % Normal . [facility] Comment on above: Performed By: #### B MP, CBC #### [facility] [address] [place] [address] [place] Neutrophils (Bld) [#/Vol] 3.7 10*3/uL Normal 1.8-7.7 [facility] Comment on above: Performed By: #### B MP, CBC #### [facility] [address] Neutrophils/100 WBC (Bld) 53.7 % Normal . [facility] Comment on above: Performed By: #### B MP, CBC #### [facility] [address] Nucleated RBC/100 WBC (Bld) [Ratio] 0.0 % Normal 0-0.5 [facility] Comment on above: Performed By: #### B MP, CBC #### [facility] [address] Platelet mean volume (Bld) [Entitic vol] 8.2 fL Normal 6.3-10.7 [facility] Comment on above: Performed By: #### B MP, CBC #### [facility] [address] [place] [address] [place] Platelets (Bld) [#/Vol] 235 10*3/uL Normal 150-450 [facility] Comment on above: Performed By: #### B MP, CBC #### [facility] [address] [place] [address] [place] RBC (Bld) [#/Vol] 4.17 10*6/uL Normal 3.60-5.00 [facility] Comment on above: Performed By: #### B MP, CBC #### [facility] [address] [place] [address] [place] WBC (Bld) [#/Vol] 6.9 10*3/uL Normal 4.5-11.0 [facility] Comment on above: Performed By: #### B MP, CBC #### [facility] [address] US venous duplex LE BIon US venous duplex LE BI [facility] [place] [address] [place] [address] Ultrasound Report Signed Patient: Morales Lee MR#: [id number] : 1975 Acct:[id number] Age/Sex: 46 / F ADM Date: 10/29/21 Loc: Room: [address] [place] [address] Type: ADM IN Attending Dr: Richard Acevedo [...] Carlos Neal MD11/04/2021 11:36 AM Dictation Location: [place] [address] Tech: Natalia Rivas Transcribed By: CORTNEY 11/04/21 1136 Dictated By: Juan Carlos Neal MD 11/04/21 1135 Signed By: 11/04/[address] [facility] Complete Blood Count Auto Di ffon 10-30-2021 Basophils (Bld) [#/Vol] 0.0 10*3/uL Normal 0.0-0.2 [facility] Comment on above: Result Comment: PERF ORMED BY: [place] [address] PATHOLOGIST AUDIOVISUAL LIBRARIAN HUY COX M.D. Performed By: #### C BC, CMP, PAB #### [address] Basophils/100 WBC (Bld) 0.6 % Normal . [facility] Comment on above: Performed By: #### C BC, CMP, PAB #### [facility] [address] Eosinophils (Bld) [#/Vol] 0.4 10*3/uL Normal 0.0-0.45 [facility] Comment on above: Performed By: #### C BC, CMP, PAB #### [facility] [address] [place] [address] [place] Eosinophils/100 WBC (Bld) 4.9 % Normal . [facility] Comment on above: Performed By: #### C BC, CMP, PAB #### [facility] [address] Erythrocyte distribution width (RBC) [Ratio] 14.3 % Normal 11.9-15.3 [facility] Comment on above: Performed By: #### C BC, CMP, PAB #### [address] Hematocrit (Bld) [Volume fraction] 36.1 % Normal 34.0-46.4 [facility] Comment on above: Performed By: #### C BC, CMP, PAB #### [address] Hemoglobin (Bld) [Mass/Vol] 12.1 g/dL Normal 11.8-15.4 [facility] Comment on above: Performed By: #### C BC, CMP, PAB #### [place] [address] [place] Lymphocytes (Bld) [#/Vol] 2.8 10*3/uL Normal 1.00-4.8 [facility] Comment on above: Performed By: #### C BC, CMP, PAB #### [place] [address] [place] Lymphocytes/100 WBC (Bld) 39.0 % Normal . [facility] Comment on above: Performed By: #### C BC, CMP, PAB #### [address] MCH (RBC) [Entitic mass] 28.7 pg Normal 24.7-34.3 [facility] Comment on above: Performed By: #### C BC, CMP, PAB #### [facility] [address] MCV (RBC) [Entitic vol] 85.7 fL Normal 80-100 [facility] Comment on above: Performed By: #### C BC, CMP, PAB #### [facility] [address] Mean Corpuscular HGB Conc 33.4 g/dL Normal 32.0-35.0 [facility] Comment on above: Performed By: #### C BC, CMP, PAB #### [address] Monocytes (Bld) [#/Vol] 0.4 10*3/uL Normal 0.0-0.8 [facility] Comment on above: Performed By: #### C BC, CMP, PAB #### [address] Monocytes/100 WBC (Bld) 5.2 % Normal . [facility] Comment on above: Performed By: #### C BC, CMP, PAB #### [address] Neutrophils (Bld) [#/Vol] 3.6 10*3/uL Normal 1.8-7.7 [facility] Comment on above: Performed By: #### C BC, CMP, PAB #### [place] [address] [place] Neutrophils/100 WBC (Bld) 50.3 % Normal . [facility] Comment on above: Performed By: #### C BC, CMP, PAB #### [place] [address] [place] Nucleated RBC/100 WBC (Bld) [Ratio] 0.0 % Normal 0-0.5 [facility] Comment on above: Performed By: #### C BC, CMP, PAB #### [place] [address] [place] Platelet mean volume (Bld) [Entitic vol] 8.1 fL Normal 6.3-10.7 [facility] Comment on above: Performed By: #### C BC, CMP, PAB #### [facility] [address] Platelets (Bld) [#/Vol] 261 10*3/uL Normal 150-450 [facility] Comment on above: Performed By: #### C BC, CMP, PAB #### [address] RBC (Bld) [#/Vol] 4.22 10*6/uL Normal 3.60-5.00 [facility] Comment on above: Performed By: #### C BC, CMP, PAB #### [address] WBC (Bld) [#/Vol] 7.2 10*3/uL Normal 4.5-11.0 [facility] Comment on above: Performed By: #### C BC, CMP, PAB #### [address] Comprehensive Metabolic Pane shree 10-30-2021 Albumin [Mass/Vol] 2.8 g/dL Low 3.2-5.5 [facility] Comment on above: Performed By: #### C BC, CMP, PAB #### [address] Albumin/Globulin [Mass ratio] 1.0 {ratio} Normal [facility] Comment on above: Performed By: #### C BC, CMP, PAB #### [address] ALP [Catalytic activity/Vol] 116 U/L High 32-92 [facility] Comment on above: Performed By: #### C BC, CMP, PAB #### [address] ALT [Catalytic activity/Vol] 20 U/L Normal 10-60 [facility] Comment on above: Performed By: #### C BC, CMP, PAB #### [facility] [address] [place] [phone] [facility] AST [Catalytic activity/Vol] 22 U/L Normal 10-42 [facility] Comment on above: Performed By: #### C BC CMP, PAB #### [facility] [address] [place] [phone] [facility] Bilirubin [Mass/Vol] 0.5 mg/dL Normal 0.3-1.2 [facility] Comment on above: Performed By: #### C BC CMP, PAB #### [facility] [address] Calcium [Mass/Vol] 8.7 mg/dL Normal 8.2-10.2 [facility] Comment on above: Performed By: #### C JORGE CMP, PAB #### [facility] [address] Chloride [Moles/Vol] 105 mmol/L Normal 95-114 [facility] Comment on above: Performed By: #### C BC CMP, PAB #### [facility] [address] [place] [address] [place] CO2 [Moles/Vol] 26.8 mmol/L Normal 22.0-30.0 [facility] Comment on above: Performed By: #### C JORGE CMP, PAB #### [facility] [address] [place] [phone] [place] Creatinine [Mass/Vol] 0.51 mg/dL Normal 0.44-1.03 [facility] Comment on above: Performed By: #### C BC CMP, PAB #### [facility] [address] [place] [phone] [place] Creatinine Clr Calc Pharmacy 123.73 [facility] Comment on above: Performed By: #### C BC CMP, PAB #### [facility] [address] [place] [address] [place] Estimated GFR ( July > [address] [facility] Comment on above: Result Comment: GFR estimated reference range: According to KDOQI guidelines, <60 ml/min/1.73m2 is sufficient to diagnose a patient with chronic kidney disease. Performed By: #### C BC CMP, PAB #### [facility] [address] Estimated GFR (Non- Am > [address] [facility] Comment on above: Performed By: #### C DARIUS PATEL, PAB #### [facility] [address] Globulin (S) [Mass/Vol] 2.8 g/dL Normal [facility] Comment on above: Performed By: #### C JORGE CMP, PAB #### [address] Glucose [Mass/Vol] 115 mg/dL High 70-100 [facility] Comment on above: Result Comment: [facility] Glucose Reference Range is dependent on time and content of last meal. Glucose of more than 200 mg/dL in a nonstressed, ambulatory subject supports the diagnosis of Diabetes Mellitus. ADA recommended reference range Performed By: #### C DARIUS PATEL, PAB #### [address] Potassium [Moles/Vol] 3.7 mmol/L Normal 3.5-5.1 [facility] Comment on above: Performed By: #### C DARIUS PATEL, PAB #### [address] Protein [Mass/Vol] 5.6 g/dL Low 6.1-7.9 [facility] Comment on above: Performed By: #### C JORGE CMP, PAB #### [address] Sodium [Moles/Vol] 140 mmol/L Normal 136-146 [facility] Comment on above: Performed By: #### C JORGE CMP, PAB #### [address] Urea nitrogen [Mass/Vol] 7 mg/dL Low 9-23 [facility] Comment on above: Performed By: #### C BC, CMP, PAB #### [place] [address] [place] Dipstick and Microscopicon 0 2-25-2022 Appearance (U) Clear Normal Clear [facility] Comment on above: Order Comment: Name Collection Type:: Voided Performed By: #### A DDONUAPLUS, CUU #### [address] Bacteria,Urine 4+ High None Seen [facility] Comment on above: Order Comment: Name Collection Type:: Voided Performed By: #### A DDONUAPLUS, CUU #### [place] [address] [place] Bilirubin,Urine Negative Normal Negative [facility] Comment on above: Order Comment: Name Collection Type:: Voided Performed By: #### A DDONUAPLUS, CUU #### [address] Color (U) Yellow Normal Yellow [facility] Comment on above: Order Comment: Name Collection Type:: Voided Performed By: #### A DDONUAPLUS, CUU #### [address] Glucose Ql (U) Normal Normal Normal [facility] Comment on above: Order Comment: Name Collection Type:: Voided Performed By: #### A DDONUAPLUS, CUU #### [address] Hyaline Casts,Urine 0-8 Normal 0-8 [facility] Comment on above: Order Comment: Name Collection Type:: Voided Result Comment: PERF ORMED BY: [place] [address] PATHOLOGIST AUDIOVISUAL LIBRARIAN HUY COX M.D. Performed By: #### A DDONUAPLUS, CUU #### [place] [address] [place] Ketones Ql (U) Negative Normal Negative [facility] Comment on above: Order Comment: Name Collection Type:: Voided Performed By: #### A DDONUAPLUS, CUU #### [place] [address] [place] Leukocyte esterase Test strip Ql (U) 3+ High Negative [facility] Comment on above: Order Comment: Name Collection Type:: Voided Performed By: #### A DDONUAPLUS, CUU #### [address] Nitrite,Urine Positive High Negative [facility] Comment on above: Order Comment: Name Collection Type:: Voided Performed By: #### A DDONUAPLUS, CUU #### [address] Occult Blood,Urine Negative Normal Negative [facility] Comment on above: Order Comment: Name Collection Type:: Voided Result Comment: PERF ORMED BY: [place] [address] PATHOLOGIST AUDIOVISUAL LIBRARIAN HUY COX M.D. Performed By: #### A DDONUAPLUS, CUU #### [address] pH (U) 5.5 [pH] Normal 5.0-9.0 [facility] Comment on above: Order Comment: Name Collection Type:: Voided Performed By: #### A DDONUAPLUS, CUU #### [address] Protein,Urine Negative Normal Negative [facility] Comment on above: Order Comment: Name Collection Type:: Voided Performed By: #### A DDONUAPLUS, CUU #### [place] [address] [place] RBC LM.HPF (Urine sed) [#/Area] 0 /[HPF] Normal 0-4 [facility] Comment on above: Order Comment: Name Collection Type:: Voided Performed By: #### A DDONUAPLUS, CUU #### [place] [address] [place] Specificy [place],Urine 1.012 Normal 1.00 1-1.[address] [facility] Comment on above: Order Comment: Name Collection Type:: Voided Performed By: #### A DDONUAPLUS, CUU #### [facility] [address] [place] [address] Squamous Epithelial Cell,Urine 0-1 Normal 0-2 [facility] Comment on above: Order Comment: Name Collection Type:: Voided Performed By: #### A DDONUAPLUS, CUU #### [address] Urobilinogen,Urine Normal Normal Normal [facility] Comment on above: Order Comment: Name Collection Type:: Voided Performed By: #### A DDONUAPLUS, CUU #### [address] WBC,Urine 20-49 High 0-4 [facility] Comment on above: Order Comment: Name Collection Type:: Voided Performed By: #### A DDONUAPLUS, CUU #### [address] Prealbuminon 10-30-2021 Prealbumin [Mass/Vol] 13.1 mg/dL Low 18.0-38.0 [facility] Comment on above: Result Comment: PERF ORMED BY: [place] [address] PATHOLOGIST AUDIOVISUAL LIBRARIAN HUY COX M.D. Performed By: #### C BC, CMP, PAB #### [address] Urine Cultureon 10-30-2021 Bacteria identified Cx Nom (U) ORGANISM: Escherichia coli (O:ESCCOL) [place] Count >100,000 Aerobic JOSE Charge (NUC86) SUSCEPTIBILITY [...] RESISTANT TO ALL B-LACTAM DRUGS. PERFORMED BY: [place] [address] PATHOLOGIST AUDIOVISUAL LIBRARIAN HUY COX M.D. Normal [facility] Comment on above: Performed By: #### A DDCHANTEUAKRIS, RUBIU #### [address] COVID-19 FRon 10-29-2021 SARS-CoV-2 (COVID-19) RNA ADRIÁN+probe Ql (Unsp spec) Negative Normal Negative [facility] Comment on above: Order Comment: Healt hcare Worker?: N Result Comment: Testing for SARS-CoV-2 by RT-PCR This test was developed and its performance characteristics determined by [employer] and validated at the [facility]. This test has not been [...] is terminated or revoked sooner. PERFORMED BY: [facility] [address] [place] [address] PATHOLOGIST AUDIOVISUAL LIBRARIAN HUY COX M.D. Performed By: #### C OVID 19 [facility] #### [facility] [address] Clinical Event Note-Need for Hospital Bedon [...] of the lumbar region. Provider/Team Contact Info-Pager [phone] Electronic Signatures: Sharmin Guaman (BETTING AGENCY MANAGER-COUNTER INSTALLER) (Signed 02-Oct-2021 15:19) Authored: Clinical Event Note Last Updated: 02-Oct-2021 15:19 by Sharmin Guaman (BETTING AGENCY MANAGER-COUNTER INSTALLER) Normal [facility] Clinical Event Note-Need for wheel Chairon [...] home, can self propel or has a animal care assistant to provide assistance. Provider/Team Contact Info-Pager [phone] Electronic Signatures: Sharmin Guaman (BETTING AGENCY MANAGER-COUNTER INSTALLER) (Signed 02-Oct-2021 15:27) Authored: Clinical Event Note Last Updated: 02-Oct-2021 15:27 by Sharmin Guaman (BETTING AGENCY MANAGER-COUNTER INSTALLER) Normal [facility] Daily Progress Note-Neurosur jinny 10-02-2021 Daily Progress Note-Neurosurgery Service: Neurosurgery Subjective Data: MORALES LEE is a 46 year old Female who is Hospital Day # 18 and POD #11 for posterior L4-L5 decompression;posterior L4-L5 arthrodesis. Objective Data: Objective Information: T PRBPSpO2 [id number]/8397% Date/Time1/28 1: 1: 1: 1: 1:28 Range(36.2C [...] 2021 10:00 pm000 Oct 01, 2021 2:00 [id number] The Intake and Output Totals for the [...] the note. I personally evaluated the patient [id number] Electronic Signatures: Kenneth Philippe (Resident)) (Signed 02-Oct-2021 [...] duration of trip. Electronic Signatures: Ambrocio Izaguirre (BETTING AGENCY MANAGER-COUNTER INSTALLER) (Signed 01-Oct-2021 17:11) Authored: Clinical Event Note Last Updated: 01-Oct-2021 17:11 by Ambrocio Izaguirre (BETTING AGENCY MANAGER-COUNTER INSTALLER) Normal [facility] Clinical Event Note-Need for hospital bedon [...] when lying flat. Electronic Signatures: Ambrocio Izaguirre (BETTING AGENCY MANAGER-COUNTER INSTALLER) (Signed 01-Oct-2021 14:48) Authored: Clinical Event Note Last Updated: 01-Oct-2021 14:48 by Ambrocio Izaguirre (BETTING AGENCY MANAGER-COUNTER INSTALLER) Normal [facility] Daily Progress Note-Nuha leonidasgaurang 10-01-2021 Daily Progress Note-Neurosurgery Service: Neurosurgery Subjective Data: MORALES LEE is a 46 year old Female who is Hospital Day # 17 and POD #10 for posterior L4-L5 decompression;posterior L4-L5 arthrodesis. Objective Data: Objective Information: T PRBPSpO2 [id number]/7194% Date/Time10/01 0: 0: 0:381 0:381 0:38 Range(35.6C - 36.8C ) (64 - 96 ) (16 - 19 ) (94 - 138 )/ (59 - 83 ) (92% - 94% ) Pain reported at 09/30 9:00: 2 = Mild ---- Intake and Output ----- Mn/Dy/Year TimeIntakeOutputNet Sep 29, 2021 10:00 [id number] Sep 29, 2021 2:00 [id number] Sep 29, 2021 6:00 am000 The Intake [...] Updated: 01-Oct-2021 10:29 by Lex Frederick) Normal [facility] Daily Progress Note-Neurosurgery This report has been cancelled. Normal [facility] Daily Progress Note-Nuha stearns 09-30-2021 Daily Progress Note-Neurosurgery Service: Neurosurgery Subjective Data: MORALES LEE is a 46 year old Female who is Hospital Day # 15 and POD #8 for posterior L4-L5 decompression;posterior L4-L5 arthrodesis. Objective Data: Objective Information: T PRBPSpO2 [id number]/7393% Date/Time09/29 16: 16: 16: 16: 16:00 Range(36C - 36.7C ) (67 - 86 ) (17 - 20 ) (94 - 153 )/ (15 - 113 ) (93% - 98% ) Pain reported at 09/29 9:56: 5 = Moderate ---- Intake and Output ----- Mn/Dy/Year TimeIntakeOutputNet Sep 29, 2021 2:00 [id number] Sep 29, 2021 6:00 am000 Sep 28, 2021 10:00 [id number] The Intake and Output Totals for the [...] the note. I personally evaluated the patient [id number] Electronic Signatures: Lex Frederick) (Signed 30-Sep-2021 11:18) Authored: Note Completion Co-Signer: Service, Subjective Data, Objective Data, Assessment and Plan, Note Completion Jaya Mosquera (Resident)) (Signed 30-Sep-2021 03:18) Authored: Service, Subjective Data, Objective Data, Assessment and Plan, Note Completion Last Updated: 30-Sep-2021 11:18 by Lex Frederick) [facility] Ohsu-lu-gijufpduz - co -tx /c OT to address multidiscipon 09-30-2021 Rehab Fmin-vj-zwavtqybl - co-tx /c OT to address multidiscip Rehab: Info: Disciplinephysical teacher home therapy Mode of Treatmentphysical therapy; co-treatment; co-tx /c OT to address multidisciplinary functional needs and maximize pt's safety. Time IN12:15 Time OUT12:55 Total Treatment [id number] Patient in ... at end of sessionbed, 3 railings up; alarm off; not on at start of visit Communicated with ... at end of sessionbedside nurse Patient Effortgood Symptoms Noted During/After Treatmentfatigue Treatment Considerations/CommentsEx tensive discussion /c amongst ACQUISITION COST ESTIMATOR, OT, and pt regarding her current physical [...] rolling right; rolling left; scooting/bridging Roll Left [place] (Bed Mobility)moderate assist (50% patient effort); 1 person assist; nonverbal cues (demo/gesture); verbal cues Roll Right [place] (Bed Mobility)moderate assist (50% patient effort); 1 person assist; nonverbal cues (demo/gesture); verbal cues Scoot/Bridge [place] (Bed Mobility)maximum assist (25% patient effort); 2 person assist; nonverbal cues (demo/gesture); verbal cues Ljhshf-tx-Ued [place] (Bed Mobility)maximum assist (25% patient effort); 2 person assist; nonverbal cues (demo/gesture); verbal cues Zbm-dw-Cgjnhj [place] (Bed Mobility)maximum assist (25% patient effort); 2 person assist; nonverbal cues (demo/gesture); verbal cues Assistive Device (Bed Mobility)bed rails; draw sheet Comment, Bed MobilityPt showing improvement in her ability to roll, performing 50% of AROM to achieve full rolling position. Transfer Assessment/Interventionss it to stand transfer; stand to sit transfer Comment, TransfersToday's session, OT and I utilized [employer] Stand device to assist pt into full [...] Pt repositioned back to sitting EOB. Sit-Stand [place] (Transfers)dependent (less than 25% patient effort) Sit-Stand Assistive Device (Transfers)mechanical lift/aid Stand-Sit [place] (Transfers)dependent (less than 25% patient effort) Stand-Sit [...] Score8 Short Term Goals: Bed Mobility: Date [id number] Bed Mobility: [place] Level Goalminimum assist (75% patients effort) Bed Mobility: Physical Assist Level Goal1-person assist, verbal cues Bed Mobility: Time Frame for Goal2 wks Transfer: Established [id number] Transfer: Transfer Type Qmfqfoe-zp-ukkkf/chair-to -bed; stc-is-kxuqs/cxgur-ky-nwa Transfer: [place] Level Goalmoderate assist (50% patients effort) Transfer: Physical Assist Level Goal1-person assist; verbal cues Transfer: Assistive Device Goalrolling walker Transfer: Time Frame for Goal2 wks Gait: Established [id number] Gait: [place] Level Goalmoderate assist (50% patients (more content not included)... Normal [facility] Rehab Note-prn occupational therapist apy - co-tx with PT to maximizeon 09-30-2021 Rehab Note-occupational therapy - co-tx with PT to maximize Rehab: Info: Disciplineoccupational therapist Mode of Treatmentoccupational therapy; co-tx with PT to maximize pt's mobility and safety. Time IN12:15 Time OUT12:55 Total Treatment [id number] Patient in ... at end of sessionbed, [...] olling right; rolling left; scooting/bridging Roll Left [place] (Bed Mobility)moderate assist (50% patient effort); 1 person assist; nonverbal cues (demo/gesture); verbal cues Roll Right [place] (Bed Mobility)moderate assist (50% patient effort); 1 person assist; nonverbal cues (demo/gesture); verbal cues Scoot/Bridge [place] (Bed Mobility)maximum assist (25% patient effort); 2 [...] lower body dressing; upper body dressing; bathing [place] Level (Bathing)set up; verbal cues; moderate assist (50% patient effort); 1 person assist Comment (Bathing)anticipated due to impaired balance, strength, and pain. [place] Level (Upper Body Dressing)set up; verbal cues; moderate assist (50% patient effort) Comment (Upper Body Dressing)anticipated due to impaired balance, strength, and pain. [place] Level (Lower Body Dressing)don; socks; dependent (less than 25% patient effort) Position (Lower Body Dressing)supine [place] Level (Grooming)modified independence Comment (Grooming)Pt observed applying Orajel to gums, able to manage packaging, cap un/screwing, and application. [place] Level (Feeding)modified independence Comment (Feeding)Pt able to retrieve OJ cup from tray table at R side, bring to mouth, and drink appropriately. [place] Level (Toileting)dependent (less than 25% patient effort); [...] Score15 Short Term Goals: Bed Mobility: Date [id number] Bed Mobility: [place] Level Goalcontact guard Bed Mobility: Physical Assist Level Goalset-up, verbal cues Bed Mobility: Time Frame for Goal2 wks Transfer: Established [id number] Transfer: Transfer Type Tngjztq-vx-xanqx/chair-to -bed; fgm-rv-vuqkx/uiydr-xm-jca ; toilet Transfer: [place] Level Goalminimum assist (75% patients effort) Transfer: Physical Assist Level Goalset-up; verbal cues; 1-person assist Transfer: Assistive Device GoalLRD Transfer: Time Frame for Goal2 wks Balance: Established [id number] Balance: Goal DetailsPt will perform ADL while reaching outside MADDIE and returning self to midline >8 minutes with set-up assist, SBA, and minimal verbal cues for safety. Enrique (more content not included)... Normal [facility] Daily Progress Note-Neurosjudy tsearns 09-29-2021 Daily Progress Note-Neurosurgery Service: Neurosurgery Subjective Data: MORALES LEE is a 46 year old Female who is Hospital Day # 14 and POD #7 for posterior L4-L5 decompression;posterior L4-L5 arthrodesis. Objective Data: Objective Information: T PRBPSpO2 [id number]/6993% Date/Time09/28 4: 8: 8: 8: 8:00 Range(36C [...] 2021 6:00 am000 Sep 27, 2021 10:00 [id number] Sep 27, 2021 2:00 [id number] The Intake and Output Totals for the last 24 hours are: IntakeOutputNet [id number] Physical Exam by System: Neurological: A&Ox3 RUE [...] the note. I personally evaluated the patient [id number] Electronic Signatures: Lex Frederick) (Signed 29-Sep-2021 09:23) Authored: Note Completion Co-Signer: Service, Subjective Data, Objective Data, Assessment and Plan, Note Completion Jaya Mosquera (Resident)) (Signed 29-Sep-2021 03:01) Authored: Service, Subjective Data, Objective Data, Assessment and Plan, Note Completion Last Updated: 29-Sep-2021 09:23 by Lex Frederick) [facility] Piid-el-xxzzidhrc - co -tx /c OT to address multidiscipon 09-29-2021 Rehab Jabi-zl-dntazhhyb - co-tx /c OT to address multidiscip Rehab: Info: Disciplinephysical teacher home therapy Mode of Treatmentphysical therapy; co-treatment; co-tx /c OT to address multidisciplinary functional needs and maximize pt's safety. Time IN14:30 Time OUT15:40 Total Treatment [id number] Patient in ... at end of sessionbed, [...] to sit; sit to supine Roll Left [place] (Bed Mobility)maximum assist (25% patient effort); 2 person assist; verbal cues; nonverbal cues (demo/gesture) Roll Right [place] (Bed Mobility)maximum assist (25% patient effort); 2 person assist; verbal cues; nonverbal cues (demo/gesture) Scoot/Bridge [place] (Bed Mobility)maximum assist (25% patient effort); 2 person assist; nonverbal cues (demo/gesture); verbal cues Ehavgm-md-Wzr [place] (Bed Mobility)maximum assist (25% patient effort); 2 person assist; nonverbal cues (demo/gesture); verbal cues Leu-uk-Lsauyj [place] (Bed Mobility)verbal cues; nonverbal cues (demo/gesture); maximum [...] Pt repositioned back to sitting EOB. Sit-Stand [place] (Transfers)dependent (less than 25% patient effort) Sit-Stand Assistive Device (Transfers)mechanical lift/aid Stand-Sit [place] (Transfers)dependent (less than 25% patient effort) Stand-Sit [...] Score8 Short Term Goals: Bed Mobility: Date [id number] Bed Mobility: [place] Level Goalminimum assist (75% patients effort) Bed Mobility: Physical Assist Level Goal1-person assist, verbal cues Bed Mobility: Time Frame for Goal2 wks Transfer: Established [id number] Transfer: Transfer Type Hfkgsyk-cf-feodh/chair-to -bed; lzz-ys-wnzgx/cepqh-mk-ffw Transfer: [place] Level Goalmoderate assist (50% patients effort) Transfer: Physical Assist Level Goal1-person assist; verbal cues Transfer: Assistive Device Goalrolling walker Transfer: Time Frame for Goal2 wks Gait: Established [id number] Gait: [place] Level Goalmoderate assist (50% patients effort) Gait: Physical Assist Level1-person assist; verbal cues Gait: Assistive Device Goalrolling walker Gait: Distance Goal15 feet Gait: Time Frame for Goal2 wks Balance: Established [id number] Balance: Goal DetailsSitting EOB 20 minutes with 0-1 UE support, SBA for static sitting, CGA for dynamic. Standing 1 minute with FWW and CGA Education: Learnerpatient Topicrehab plan of care; discharge recommendations including destination and/or equipment Outcome Summary: Progress: Physical Therapyprogress towards functional goals is fair Outcome (more content not included)... Normal [facility] Rehab Note-prn occupational therapist apy - co-tx with PT to maximizeon 09-29-2021 Rehab Note-occupational therapy - co-tx with PT to maximize Rehab: Info: Disciplineoccupational therapist Mode of Treatmentoccupational therapy; co-tx with PT to maximize pt's mobility and safety. Time IN14:30 Time OUT15:40 Total Treatment [id number] Patient in ... at end of sessionbed, [...] to sit; sit to supine Roll Left [place] (Bed Mobility)maximum assist (25% patient effort); 2 person assist; verbal cues; nonverbal cues (demo/gesture); multiple rolls to adjust harness Roll Right [place] (Bed Mobility)maximum assist (25% patient effort); 2 person assist; verbal cues; nonverbal cues (demo/gesture); multiple rolls to adjust harness Scoot/Bridge [place] (Bed Mobility)maximum assist (25% patient effort); 2 person assist; nonverbal cues (demo/gesture); verbal cues; boost HOB Ifalod-qg-Vbk [place] (Bed Mobility)maximum assist (25% patient effort); 2 person assist; nonverbal cues (demo/gesture); verbal cues Npr-gq-Ugdhvp [place] (Bed Mobility)verbal cues; nonverbal cues (demo/gesture); maximum assist (25% patient effort); 2 person assist Assistive Device (Bed Mobility)draw sheet; bed rails Transfer Assessment/Interventionss it to stand transfer; stand to sit transfer Sit-Stand [place] (Transfers)dependent (less than 25% patient effort) Sit-Stand Assistive Device (Transfers)mechanical lift/aid; Faye Plus Stand-Sit [place] (Transfers)dependent (less than 25% patient effort) Stand-Sit Assistive Device (Transfers)mechanical lift/aid; Faye Plus Safety Issues Impacting Function (Mobility)awareness of need for assistance; insight into deficits/self awareness Impairments Impacting Function (Mobility)endurance/activ ity tolerance; strength; balance; coordination; postural/trunk control ADL: BADL Assessment/Interventionto ileting; feeding; grooming; lower body dressing; upper body dressing; bathing [place] Level (Bathing)set up; verbal cues; moderate assist (50% patient effort); 1 person assist Comment (Bathing)anticipated due to impaired balance, strength, and pain. [place] Level (Upper Body Dressing)set up; verbal cues; moderate assist (50% patient effort) Comment (Upper Body Dressing)anticipated due to impaired balance, strength, and pain. [place] Level (Lower Body Dressing)don; socks; dependent (less than 25% patient effort) Position (Lower Body Dressing)supine [place] Level (Grooming)set up; contact guard Comment (Grooming)anticipated due to impaired balance, strength, and pain. [place] Level (Feeding)set up; modified independence Comment (Feeding)anticipated [place] Level (Toileting)dependent (less than 25% patient effort); purewick Impairments, BADL Safety/Performancebalance ; cognition; endurance/activity tolerance; strength; trunk/postural control Cognitive Impairments, BADL Safety/Performanceawarene ss, need for assistance; insight into deficits/self awareness; judgment; problem solving/reasoning Motor: Sitting, Static (Balance)good balance SBA Sitting, Dynamic (Balance)fair balance CGA Eqe-ng-Ggmwz (Balance)poor balance Total A via Faye Plus lift Standing, Static (Balance)poor balance Max A x1 - via Faye Plus Standing, Dynamic (Balance)unable to balance Balance ActivitiesPt sat EOB ~20 minutes throughout session primarily with SB (more content not included)... Normal [facility] Clinical Event Note-Medical Assessmenton 09-28-2021 Clinical [...] oil enema alternating with tap water enema D4Duvsk - Bisacodyl suppository QHS Daily - Monitor [...] for wound check 10/07/21 at 10:15 am, [facility] 5th floor - F/U with Dr. [...] note 45 minutes; Electronic Signatures: Concetta Shi (BETTING AGENCY MANAGER-COUNTER INSTALLER) (Signed 28-Sep-2021 14:31) Authored: Clinical Event Note Last Updated: 28-Sep-2021 14:31 by Concetta Shi (BETTING AGENCY MANAGER-COUNTER INSTALLER) Normal [facility] Daily Progress Note-Gastroen terologyon 09-28-2021 Daily Progress Note-Gastroenterology Service: Gastroenterology Subjective Data: MORALES LEE is a 46 year old Female who is Hospital Day # 14 and POD #7 for posterior L4-L5 decompression;posterior L4-L5 arthrodesis. No events overnight. Had one bowel movement this am. Otherwise no complaints. Objective Data: Objective Information: T PRBPSpO2 [id number]/6993% Date/Time09/28 4: 8: 8: 8: 8:00 Range(36C [...] 2021 6:00 am000 Sep 27, 2021 10:00 [id number] Sep 27, 2021 2:00 [id number] The Intake and Output Totals for the last 24 hours are: IntakeOutputNet [id number] Physical Exam by System: Constitutional: Constitutional: A&Ox3, [...] recommend tr (more content not included)... Normal [facility] Daily Progress Note-Nuha jinny 09-28-2021 Daily Progress Note-Neurosurgery Service: Neurosurgery Subjective Data: MORALES LEE is a 46 year old Female who is Hospital Day # 14 and POD #7 for posterior L4-L5 decompression;posterior L4-L5 arthrodesis. Objective Data: Objective Information: T PRBPSpO2 [id number]/4893% Date/Time09/28 4: 4: 4: 4: 4:00 Range(36C - 36.6C ) (72 - 87 ) (15 - 22 ) (92 - 153 )/ (48 - 113 ) (92% - 99% ) As of 27-Sep-2021 22:00:00, patient is on 2 L/min of oxygen via nasal cannula. Pain reported at 09/27 22:00: 0 = None ---- Intake and Output ----- Mn/Dy/Year TimeIntakeOutputNet Sep 26, 2021 10:00 [id number] Sep 26, 2021 2:00 [id number] The Intake and Output Totals for the last 24 hours are: IntakeOutputNet [id number] Physical Exam by System: Neurological: A&Ox3 RUE [...] the note. I personally evaluated the patient [id number] Electronic Signatures: Fidel Maciel (Resident)) (Signed 28-Sep-2021 05:47) Authored: Service, Subjective Data, Objective Data, Assessment and Plan, Note Completion Lex Frederick) (Signed 28-Sep-2021 07:32) Authored: Note Completion Co-Signer: Service, Subjective Data, Objective Data, Assessment and Plan, Note Completion Last Updated: 28-Sep-2021 07:32 by Lex Frederick) Normal [facility] RENAL FUNCTION PANELon 09-28 Albumin [Mass/Vol] 3.1 g/dL Low 3.4 - 5.0 [facility] Comment on above: Performed By: #### R ENAL ####[id number] [place] [address] Anion gap [Moles/Vol] 17 mmol/L Normal 10 - 20 [facility] Comment on above: Performed By: #### R ENAL ####[id number] [place] [address] Calcium [Mass/Vol] 8.4 mg/dL Low 8.6 - 10.6 [facility] Comment on above: Performed By: #### R ENAL ####[id number] [place] [address] Chloride [Moles/Vol] 102 mmol/L Normal 98 - 107 [facility] Comment on above: Performed By: #### R ENAL ####[id number] [place] [address] Creatinine [Mass/Vol] 0.47 mg/dL Low 0.50 - 1.05 [facility] Comment on above: Performed By: #### R ENAL ####[id number] [place] [address] eGFR FEMALE >90 Normal >90 [facility] Comment on above: Result Comment: CALC ULATIONS OF ESTIMATED GFR ARE PERFORMED USING THE 2020 CKD-EPI STUDY REFIT EQUATION WITHOUT THE RACE VARIABLE FOR THE IDMS-TRACEABLE CREATININE METHODS. https://jasn.asnjournals.org/content//ASN.511 9599058 Performed By: #### R ENAL ####[id number] [place] [address] Glucose [Mass/Vol] 74 mg/dL Normal 74 - 99 [facility] Comment on above: Performed By: #### R ENAL ####[id number] [place] [address] HCO3 (Bld) [Moles/Vol] 27 mmol/L Normal 21 - 32 [facility] Comment on above: Performed By: #### R ENAL ####[id number] [place] [address] Phosphate [Mass/Vol] 3.4 mg/dL Normal 2.5 - 4.9 [facility] Comment on above: Result Comment: The performance characteristics of phosphorus testing in heparinized plasma have been validated by the individual laboratory site where testing is performed. Testing on heparinized plasma is not approved by the FDA; however, such approval is not necessary. Performed By: #### R ENAL ####[id number] [place] [address] Potassium [Moles/Vol] 3.7 mmol/L Normal 3.5 - 5.3 [facility] Comment on above: Performed By: #### R ENAL ####[id number] [place] [address] Sodium [Moles/Vol] 142 mmol/L Normal 136 - 145 [facility] Comment on above: Performed By: #### R ENAL ####[id number] [place] [address] Urea nitrogen [Mass/Vol] 6 mg/dL Normal 6 - 23 [facility] Comment on above: Performed By: #### R ENAL ####[id number] [place] [address] Radiologyon 09-28-2021 XR Abdomen AP Normal MG-Gastroen terology-Rosendo hernandesell 6 I Work Phone: Rehab Note-attemptedon 09-28 Rehab Note-attempted Rehab: Info: Disciplinephysical teacher home therapy Mode of Treatmentattempted Time IN15:30 Reason Treatment Not Performedpatient/family declined treatment, not feeling well Treatment Considerations/CommentsPt declined therapy at this time 2* increased fatigue, nausea. Pt stated NO! NO! NO! upon therapists arrival, even /c increased encouragement. Will reattempt as schedule allows. Short Term Goals: Bed Mobility: Date [id number]-2826 Bed Mobility: [place] Level Goalminimum assist (75% patients effort) Bed Mobility: Physical Assist Level Goal1-person assist, verbal cues Bed Mobility: Time Frame for Goal2 wks Transfer: Established [id number]-7502 Transfer: Transfer Type Mqmyrki-ol-agqfe/chair-to -bed; vrb-fp-oqxgr/qhtno-vi-xbo Transfer: [place] Level Goalmoderate assist (50% patients effort) Transfer: Physical Assist Level Goal1-person assist; verbal cues Transfer: Assistive Device Goalrolling walker Transfer: Time Frame for Goal2 wks Gait: Established [id number]-[id number] Gait: [place] Level Goalmoderate assist (50% patients effort) Gait: Physical Assist Level1-person assist; verbal cues Gait: Assistive Device Goalrolling walker Gait: Distance Goal15 feet Gait: Time Frame for Goal2 wks Balance: Established [id number]-Mqh-4226 Balance: Goal DetailsSitting EOB 20 minutes with 0-1 UE support, SBA for static sitting, CGA for dynamic. Standing 1 minute with FWW and CGA Electronic Signatures: Yosi Campbell (ACQUISITION COST ESTIMATOR) (Signed 28-Sep-2021 15:32) Entered: Short Term Goals, Info Authored: Deon, Short Term Goals Boone Broussard (PT) (Signed 01-Oct-2021 09:01) Co-Signer: Short Term Goals, Info Last Updated: 01-Oct-2021 09:01 by Boone Broussard (PT) Normal [facility] Rehab Note-attempted Rehab: Info: Mode of [...] 28-Sep-2021 15:28 by Silvana Marshall (OT) Normal [facility] Renal Function Panelon 09-28 Albumin BCP [...] RACE VARIABLE FOR THE IDMS-TRACEABLE CREATININE METHODS.https://jasn.asnjournals.org/content/early /ASN.5360530556 TH ABDOMEN AP VIEWon 022 ABDOMEN AP VIEW Patient Name: MORALES LEE STUDY: ABDOMEN AP VIEW; 09/28/2021 1:22 pm INDICATION: Abd. dist. . COMPARISON: 09/27/2021 abdominal radiograph. ACCESSION NUMBER(S): [id number] ORDERING CLINICIAN: CONCETTA SHI FINDINGS: Two AP [...] as stated. This study was interpreted at [facility], [place], [place]. 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 Has been on scheduled bowel regimen [...] penicillin: Unknown Objective: Objective Information: T PRBPSpO2 [id number]/96730% Date/Time09/27 4: 4: 4:001 4:00 Range (76 [...] C6-7 ACDFF, (more content not included)... Normal [facility] Daily Progress Note-Neurosur jinny 09-27-2021 Daily Progress Note-Neurosurgery Service: Neurosurgery Subjective Data: MORALES LEE is a 46 year old Female who is Hospital Day # 13 and POD #6 for posterior L4-L5 decompression;posterior L4-L5 arthrodesis. Objective Data: Objective Information: T PRBPSpO2 [id number]/78972% Date/Time09/26 11:0809/27 4: 4: 4: 4:00 Range(37C [...] 2021 6:00 am000 Sep 26, 2021 10:00 [id number] Sep 26, 2021 2:00 [id number] The Intake and Output Totals for the last 24 hours are: IntakeOutputNet [id number] Physical Exam by System: Neurological: A&Ox3 RUE [...] the note. I personally evaluated the patient [id number] Electronic Signatures: Chaparro Umana (Resident)) (Signed 27-Sep-2021 06:11) Authored: Service, Subjective Data, Objective Data, Assessment and Plan, Note Completion Natalia Palacios) (Signed 08-Oct-2021 14:31) Authored: Note Completion Co-Signer: Service, Subjective Data, Objective Data, Assessment and Plan, Note Completion Last Updated: 08-Oct-2021 14:31 by Natalia Palacios) Normal [facility] MAGNESIUMon 09-27-2021 Magnesium [Mass/Vol] 1.80 mg/dL Normal 1.60 - 2.40 [facility] Comment on above: Performed By: #### C BC #### [facility] [address] [place] [address] Magnesium, Serumon Magnesium [Mass/Vol] 1.80 mg/dL See Below MG-G astroen terraiza-Rosendo moura 6 [facility] Work Phone: Comment on above: Reference Range: 1.6 0 - 2.40 RENAL FUNCTION PANELon 09-27 Albumin [Mass/Vol] 3.3 g/dL Low 3.4 - 5.0 [facility] Comment on above: Performed By: #### R ENAL #### [facility] [address] [place] [address] Anion gap [Moles/Vol] 17 mmol/L Normal 10 - 20 [facility] Comment on above: Performed By: #### R ENAL #### [facility] [address] [place] [address] Calcium [Mass/Vol] 8.5 mg/dL Low 8.6 - 10.6 [facility] Comment on above: Performed By: #### R ENAL #### [facility] [address] [place] [address] Chloride [Moles/Vol] 98 mmol/L Normal 98 - 107 [facility] Comment on above: Performed By: #### R ENAL #### [facility] [address] [place] [address] Creatinine [Mass/Vol] 0.44 mg/dL Low 0.50 - 1.05 [facility] Comment on above: Performed By: #### R ENAL #### [facility] [address] [place] [address] eGFR FEMALE >90 Normal >90 [facility] Comment on above: Result Comment: CALC ULATIONS OF ESTIMATED GFR ARE PERFORMED USING THE 2020 CKD-EPI STUDY REFIT EQUATION WITHOUT THE RACE VARIABLE FOR THE IDMS-TRACEABLE CREATININE METHODS. https://jasn.asnjournals.org/content//ASN.932 7485542 Performed By: #### R ENAL #### [facility] [address] [place] [address] Glucose [Mass/Vol] 91 mg/dL Normal 74 - 99 [facility] Comment on above: Performed By: #### R ENAL #### [facility] [address] [place] [address] HCO3 (Bld) [Moles/Vol] 26 mmol/L Normal 21 - 32 [facility] Comment on above: Performed By: #### R ENAL #### [facility] [address] [place] [address] Phosphate [Mass/Vol] 4.0 mg/dL Normal 2.5 - 4.9 [facility] Comment on above: Result Comment: The performance characteristics of phosphorus testing in heparinized plasma have been validated by the individual laboratory site where testing is performed. Testing on heparinized plasma is not approved by the FDA; however, such approval is not necessary. Performed By: #### R ENAL #### [facility] [address] [place] [address] Potassium [Moles/Vol] 4.1 mmol/L Normal 3.5 - 5.3 [facility] Comment on above: Performed By: #### R ENAL #### [facility] [address] [place] [address] Sodium [Moles/Vol] 137 mmol/L Normal 136 - 145 [facility] Comment on above: Performed By: #### R ENAL #### [facility] [address] [place] [address] Urea nitrogen [Mass/Vol] 6 mg/dL Normal 6 - 23 [facility] Comment on above: Performed By: #### R ENAL #### [facility] [address] [place] [address] Radiologyon 09-27-2021 XR Abdomen AP Normal MG-Gastroen [...] RACE VARIABLE FOR THE IDMS-TRACEABLE CREATININE METHODS.https://jasn.asnjournals.org/content/early/ /ASN.5549743753 ABDOMEN AP VIEWon 022 ABDOMEN AP VIEW Patient Name: JESUS MORALES STUDY: ABDOMEN AP VIEW; 09/27/2021 2:33 am INDICATION: vomiting, constipation . COMPARISON: None. ACCESSION NUMBER(S): [id number] ORDERING CLINICIAN: FIDEL MACIEL FINDINGS: 2 AP [...] as stated. This study was interpreted at [place], [place]. Electronically signed by: DWIGHT MOY MD [facility] Daily Progress Note-Neurosjudy stearns 09-26-2021 Daily Progress Note-Neurosurgery Service: Neurosurgery Subjective Data: MORALES LEE is a 46 year old Female who is Hospital Day # 12 and POD #5 for posterior L4-L5 decompression;posterior L4-L5 arthrodesis. Objective Data: Objective Information: T PRBPSpO2 [id number]/8299% Date/Time09/25 17: 12:001 17: 17:08 Range (68 - 98 ) (21 - 23 ) (118 - 136 )/ (69 - 82 ) (92% - 99% ) Pain reported at 09/26 3:00: sleeping ---- Intake and Output ----- Mn/Dy/Year TimeIntakeOutputNet Sep 24, 2021 10:00 [id number] Sep 24, 2021 2:00 [id number] Sep 24, 2021 6:00 [id number] The Intake and Output Totals for the last 24 hours are: IntakeOutputNet [id number] Physical Exam by System: Neurological: A&Ox3 RUE [...] the note. I personally evaluated the patient [id number] Electronic Signatures: Jaya Mosquera ( (Resident)) (Signed 26-Sep-2021 07:08) Authored: Service, Subjective Data, Objective Data, Assessment and Plan, Note Completion Natalia Palacios) (Signed 08-Oct-2021 14:10) Authored: Note Completion Co-Signer: Service, Subjective Data, Objective Data, Assessment and Plan, Note Completion Last Updated: 08-Oct-2021 14:10 by Natalia Palacios) Normal [facility] Clinical Event Note-POD 4 / Abdominal [...] for wound check 10/07/21 at 10:15 am, [facility] 5th floor - F/U with Dr. [...] plan of care. Electronic Signatures: Concetta Shi (BETTING AGENCY MANAGER-COUNTER INSTALLER) (Signed 25-Sep-2021 13:30) Authored: Clinical Event Note Last Updated: 25-Sep-2021 13:30 by Concetta Shi (BETTING AGENCY MANAGER-COUNTER INSTALLER) Normal [facility] Daily Progress Note-Nuha stearns 09-25-2021 Daily Progress Note-Neurosurgery Service: Neurosurgery Subjective Data: MORALES LEE is a 46 year old Female who is Hospital Day # 11 and POD #4 for posterior L4-L5 decompression;posterior L4-L5 arthrodesis. Objective Data: Objective Information: T PRBPSpO2 [id number]/6799% Date/Time09/24 16: 16:: 16:00 Range (68 - 78 ) (18 - 19 ) (102 - 117 )/ (57 - 73 ) (95% - 99% ) As of 24-Sep-2021 21:40:00, patient is on 2 L/min of oxygen via nasal cannula. Pain reported at 09/24 21:40: 8 = Severe ---- Intake and Output ----- Mn/Dy/[facility]Out[facility] Sep 23, 2021 10:00 [id number] Sep 23, 2021 6:00 [id number] The Intake and Output Totals for the last 24 hours are: [facility]akeOutLife[facility] [id number] Physical Exam by System: Neurological: A&Ox3 RUE [...] the note. I personally evaluated the patient [id number] Electronic Signatures: Lex Frederick) (Signed 25-Sep-2021 11:57) Authored: Note Completion Co-Signer: Service, Subjective Data, Objective Data, Assessment and Plan, Note Completion Alfredo Hendrickson (Resident)) (Signed 25-Sep-2021 05:56) Authored: Service, Subjective Data, Objective Data, Assessment and Plan, Note Completion Last Updated: 25-Sep-2021 11:57 by Lex Frederick) [facility] Yydu-gj-dqukfhwcc - co -tx /c OT to address multidiscipon 09-25-2021 Rehab Gwft-tt-jpyhgtayd - co-tx /c OT to address multidiscip Rehab: Info: Disciplinephysical teacher home therapy Mode of Treatmentphysical therapy; co-treatment; co-tx /c OT to address multidisciplinary functional needs and maximize pt's safety. Time IN15:05 Time OUT15:59 Total Treatment [id number] Patient in ... at end of sessionbed, [...] scooting/bridging; rolling right; rolling left Roll Left [place] (Bed Mobility)maximum assist (25% patient effort); 2 person assist; verbal cues; nonverbal cues (demo/gesture) Roll Right [place] (Bed Mobility)maximum assist (25% patient effort); 2 person assist; verbal cues; nonverbal cues (demo/gesture) Scoot/Bridge [place] (Bed Mobility)maximum assist (25% patient effort); 2 person assist; nonverbal cues (demo/gesture); verbal cues Cvfhux-rc-Rwk [place] (Bed Mobility)maximum assist (25% patient effort); 2 person assist; verbal cues; nonverbal cues (demo/gesture) Oec-wf-Cfylwg [place] (Bed Mobility)maximum assist (25% patient effort); 2 [...] unable to get to full standing. Sit-Stand [place] (Transfers)maximum assist (25% patient effort); verbal cues; nonverbal cues (demo/gesture); 2-3 persona assist Sit-Stand Assistive Device (Transfers)walker, front-wheeled Stand-Sit [place] (Transfers)maximum assist (25% patient effort); nonverbal cues [...] Score8 Short Term Goals: Bed Mobility: Date Ubnzlhjxkwi50-Uvb-7222 Bed Mobility: [place] Level Goalminimum assist (75% patients effort) Bed Mobility: Physical Assist Level Goal1-person assist, verbal cues Bed Mobility: Time Frame for Goal2 wks Transfer: Established Ixtg55-Icq-4237 Transfer: Transfer Type Mcjatqc-nz-hdslk/chair-to -bed; wxg-bi-izdrs/rhjxf-jm-xzu Transfer: [place] Level Goalmoderate assist (50% patients effort) Transfer: Physical Assist Level Goal1-person assist; verbal cues Transfer: Assistive Device Goalrolling walker Transfer: Time Frame for Goal2 wks Gait: Established Gait: [place] Level Goalmoderate assist (50% patients effort) Gait: [...] goals is gradual Electronic Signatures: Yosi Campbell (ACQUISITION COST ESTIMATOR) (Signed 25-Sep-2021 16:59) Entered: Outcome Summary, Short Term Goals, Sensory, TherEx, Outcomes Tools, Info, Mobility/Tone Authored: Short Term Goals, Outcome Summary, TherEx, Outcomes Tools, Info, Mobility/Tone, Sensory Boone Broussard (PT) (Signed 01-Oct-2021 09:01) Co-Signer: Outcome Summary, Short Term Goals, Sensory, TherEx (more content not included)... Normal [facility] Rehab Note-prn occupational therapist apy - Partial co-tx with PT to tue09-25-2021 Rehab Note-occupational therapy - Partial co-tx with PT to Rehab: Info: Disciplineoccupational therapist Mode of Treatmentoccupational therapy; Partial co-tx with PT to maximize pt's mobility and safety. Time IN15:03 Time OUT15:56 Total Treatment [id number] Patient in ... at end of sessionbed, [...] sit to supine; rolling right Roll Left [place] (Bed Mobility)Pt required assist to bend BLE at knees and to initiate turn at shoulders and hips, verbal cues for grasp on bed rail, technique, direction follow, and encouragement.; set up; verbal cues; maximum assist (25% patient effort); 2 person assist Roll Right [place] (Bed Mobility)Pt required assist to bend BLE at knees and to initiate turn at shoulders and hips, verbal cues for grasp on bed rail, technique, direction follow, and encouragement.; set up; verbal cues; maximum assist (25% patient effort); 2 person assist Scoot/Bridge [place] (Bed Mobility)boost HOB; set up; verbal cues; maximum assist (25% patient effort); 2 person assist Inshno-pk-Yqv [place] (Bed Mobility)HOB elevated; set up; verbal cues; maximum assist (25% patient effort); 2 person assist Hke-dm-Vieplw [place] (Bed Mobility)HOB elevated; set up; verbal cues; maximum assist (25% patient effort); 2 person assist Assistive Device (Bed Mobility)bed rails; draw sheet Transfer Assessment/Interventionss it to stand transfer Sit-Stand [place] (Transfers)set up; verbal cues; maximum assist (25% patient effort); x 2-3 assist Safety Issues Impacting Function (Mobility)ability to follow commands; awareness of need for assistance; insight into deficits/self awareness; judgment; problem solving Impairments Impacting Function (Mobility)balance; cognition; endurance/activity tolerance; pain; strength; postural/trunk control ADL: BADL Assessment/Interventionto ileting; feeding; grooming; lower body dressing; upper body dressing; bathing [place] Level (Bathing)set up; verbal cues; moderate assist (50% patient effort); 1 person assist Comment (Bathing)anticipated due to impaired balance, strength, and pain. [place] Level (Upper Body Dressing)set up; verbal cues; moderate assist (50% patient effort) Comment (Upper Body Dressing)anticipated due to impaired balance, strength, and pain. [place] Level (Lower Body Dressing)don; socks; dependent (less than 25% patient effort) Position (Lower Body Dressing)supine [place] Level (Grooming)set up; contact guard Comment (Grooming)anticipated due to impaired balance, strength, and pain. [place] Level (Feeding)set up; modified independence Comment (Feeding)anticipated [place] Level (Toileting)dependent (less than 25% patient effort); purewick Impairments, BADL Safety/Performancebalance ; cognition; endurance/activity tolerance; strength; trunk/postural control Cognitive Impairments, BADL Safety/Performanceawarene ss, need for assistance; insight into deficits/self awareness; judgment; problem solving/reasoning Motor: Sitting, Static (Balance)good balance SBA Sitting, Dynamic (Balance)fair balance CGA Xvu-fp-Vqgvo (Balance)poor balance Max A x 2-3 - attempted Standing, Static (Balance)unable to balance Standing, Dynamic (Balance)unable to balance Balance ActivitiesPt sat EOB ~30 minutes with SBA/CGA for safety. Pt demonstrated good sitting balance and trunk control. Pt attempted STS transfers 3x with (more content not included)... Normal [facility] Daily Progress Note-Nuha stearns 09-24-2021 Daily Progress Note-Neurosurgery Service: Neurosurgery Subjective Data: MORALES LEE is a 46 year old Female who is Hospital Day # 10 and POD #3 for posterior L4-L5 decompression;posterior L4-L5 arthrodesis. Objective Data: Objective Information: T PRBPSpO2 [id number]/5499% Date/Time09/23 20:4809/23 20: 20: 20: 20:48 Range(35.5C - 36.1C ) (66 - 75 ) (16 - 19 ) (90 - 118 )/ (54 - 75 ) (98% - 99% ) As of 23-Sep-2021 22:43:00, patient is on 2 L/min of oxygen via nasal cannula. ---- Intake and Output ----- Mn/Dy/Year TimeIntakeOutputNet Sep 22, 2021 10:00 [id number] Sep 22, 2021 2:00 [id number] Sep 22, 2021 6:00 [id number] The Intake and Output Totals for the last 24 hours are: IntakeOutputNet [id number] Physical Exam by System: Neurological: A&Ox3 RUE [...] the note. I personally evaluated the patient [id number] Comments/ Additional Findings Doing well. Kyphotic posture and Back Pain from instability and traumatic chance fracture significantly improved as compared to preop. 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 Normal [facility] MAGNESIUMon 09-24-2021 Magnesium [Mass/Vol] 1.71 mg/dL Normal 1.60 - 2.40 [facility] Comment on above: Performed By: #### A FPA3 #### [facility] [address] [place] [address] Magnesium, Serumon Magnesium [Mass/Vol] 1.71 mg/dL See Below MG-G astroen terology-Rosendo moura 6 [facility] Work Phone: Comment on above: Reference Range: 1.6 0 - 2.40 RENAL FUNCTION PANELon 09-24 Albumin [Mass/Vol] 2.6 g/dL Low 3.4 - 5.0 [facility] Comment on above: Performed By: #### R ENAL ####[id number] [place] [address] Anion gap [Moles/Vol] 10 mmol/L Normal 10 - 20 [facility] Comment on above: Performed By: #### R ENAL ####[id number] [place] [address] Calcium [Mass/Vol] 7.7 mg/dL Low 8.6 - 10.6 [facility] Comment on above: Performed By: #### R ENAL ####[id number] [place] [address] Chloride [Moles/Vol] 108 mmol/L High 98 - 107 [facility] Comment on above: Performed By: #### R ENAL ####[id number] [place] [address] Creatinine [Mass/Vol] 0.39 mg/dL Low 0.50 - 1.05 [facility] Comment on above: Performed By: #### R ENAL ####[id number] [place] [address] eGFR FEMALE >90 Normal >90 [facility] Comment on above: Result Comment: CALC ULATIONS OF ESTIMATED GFR ARE PERFORMED USING THE 2020 CKD-EPI STUDY REFIT EQUATION WITHOUT THE RACE VARIABLE FOR THE IDMS-TRACEABLE CREATININE METHODS. https://jasn.asnjournals.org/content//ASN.561 7314292 Performed By: #### R ENAL ####[id number] [place] [address] Glucose [Mass/Vol] 92 mg/dL Normal 74 - 99 [facility] Comment on above: Performed By: #### R ENAL ####[id number] [place] [address] HCO3 (Bld) [Moles/Vol] 29 mmol/L Normal 21 - 32 [facility] Comment on above: Performed By: #### R ENAL ####[id number] [place] [address] Phosphate [Mass/Vol] 3.3 mg/dL Normal 2.5 - 4.9 [facility] Comment on above: Result Comment: The performance characteristics of phosphorus testing in heparinized plasma have been validated by the individual laboratory site where testing is performed. Testing on heparinized plasma is not approved by the FDA; however, such approval is not necessary. Performed By: #### R ENAL ####[id number] [place] [address] Potassium [Moles/Vol] 3.9 mmol/L Normal 3.5 - 5.3 [facility] Comment on above: Performed By: #### R ENAL ####[id number] [place] [address] Sodium [Moles/Vol] 143 mmol/L Normal 136 - 145 [facility] Comment on above: Performed By: #### R ENAL ####[id number] [place] [address] Urea nitrogen [Mass/Vol] 5 mg/dL Low 6 - 23 [facility] Comment on above: Performed By: #### R ENAL ####[id number] [place] [address] Rehab Note-attemptedon 09-24 Rehab Note-attempted Rehab: Info: Mode of Treatmentattempted Time IN15:00 Reason Treatment Not Performedpatient/family declined treatment; Pt declined participation in OT treatment stating she was on a very important call that she needed to take. Electronic Signatures: Silvana Marshall (OT) (Signed 24-Sep-2021 15:29) Authored: Info Last Updated: 24-Sep-2021 15:29 by Silvana Marshall (OT) Normal [facility] Rehab Note-physical therapyo n 09-24-2021 Rehab [...] 24-Sep-2021 15:07 by Boone Broussard (PT) Normal [facility] Renal Function Panelon 09-24 Albumin BCP [...] RACE VARIABLE FOR THE IDMS-TRACEABLE CREATININE METHODS.https://jasn.asnjournals.org/content/early /ASN.3123444826 CBCon 09-23-2021 Erythrocyte distribution width (RBC) [Ratio] 13.1 % Normal 11.5 - 14.5 [facility] Comment on above: Performed By: #### C BC ####[id number] [place] [address] Hematocrit (Bld) [Volume fraction] 30.5 % Low 36.0 - 46.0 [facility] Comment on above: Performed By: #### C BC ####[id number] [place] [address] Hemoglobin (Bld) [Mass/Vol] 9.9 g/dL Low 12.0 - 16.0 [facility] Comment on above: Performed By: #### C BC ####[id number] [place] [address] MCHC (RBC) [Mass/Vol] 32.5 g/dL Normal 32.0 - 36.0 [facility] Comment on above: Performed By: #### C BC ####[id number] [place] [address] MCV (RBC) [Entitic vol] 92 fL Normal 80 - 100 [facility] Comment on above: Performed By: #### C BC ####[id number] [place] [address] NUCLEATED RBC 0.0 /100 WBC Normal 0.0-0.0 [facility] Comment on above: Performed By: #### C BC ####[id number] [place] [address] Platelets (Bld) [#/Vol] 244 10*3/uL Normal 150 - 450 [facility] Comment on above: Performed By: #### C BC ####[id number] [place] [address] RBC 3.33 x10E12/L Low 4.00 - 5.20 [facility] Comment on above: Performed By: #### C BC ####[id number] [place] [address] WBC (Bld) [#/Vol] 8.6 10*3/uL Normal 4.4 - 11.3 [facility] Comment on above: Performed By: #### C BC ####[id number] [place] [address] CBC AND DIFFERENTIALon 09-23 % AUTOMATED IMMATURE GRAN 0.4 % Normal 0.0 - 0.9 [facility] Comment on above: Result Comment: Jaleesa ture Granulocyte Count (IG) includes promyelocytes, myelocytes and metamyelocytes but does not include bands. Percent differential counts (%) should be interpreted in the context of the absolute cell counts (cells/L). Performed By: #### C BC #### [facility] [address] [place] [address] Basophils (Bld) [#/Vol] 0.03 10*3/uL Normal 0.00 - 0.10 [facility] Comment on above: Performed By: #### C BC #### [facility] [address] [place] [address] Basophils/100 WBC (Bld) 0.4 % Normal 0.0 - 2.0 [facility] Comment on above: Performed By: #### C BC #### [facility] [address] [place] [address] Eosinophils (Bld) [#/Vol] 0.27 10*3/uL Normal 0.00 - 0.70 [facility] Comment on above: Performed By: #### C BC #### [facility] [address] [place] [address] Eosinophils/100 WBC (Bld) 3.6 % Normal 0.0 - 6.0 [facility] Comment on above: Performed By: #### C BC #### [facility] [address] [place] [address] Erythrocyte distribution width (RBC) [Ratio] 13.2 % Normal 11.5 - 14.5 [facility] Comment on above: Performed By: #### C BC #### [facility] [address] [place] [address] Hematocrit (Bld) [Volume fraction] 30.9 % Low 36.0 - 46.0 [facility] Comment on above: Performed By: #### C BC #### [facility] [address] [place] [address] Hemoglobin (Bld) [Mass/Vol] 10.4 g/dL Low 12.0 - 16.0 [facility] Comment on above: Performed By: #### C BC #### [facility] [address] [place] [address] Lymphocytes (Bld) [#/Vol] 2.41 10*3/uL Normal 1.20 - 4.80 [facility] Comment on above: Performed By: #### C BC #### [facility] [address] [place] [address] Lymphocytes/100 WBC (Bld) 31.9 % Normal 13.0 - 44.0 [facility] Comment on above: Performed By: #### C BC #### [facility] [address] [place] [address] MCHC (RBC) [Mass/Vol] 33.7 g/dL Normal 32.0 - 36.0 [facility] Comment on above: Performed By: #### C BC #### [facility] [address] [place] [address] MCV (RBC) [Entitic vol] 91 fL Normal 80 - 100 [facility] Comment on above: Performed By: #### C BC #### [facility] [address] [place] [address] Monocytes (Bld) [#/Vol] 0.49 10*3/uL Normal 0.10 - 1.00 [facility] Comment on above: Performed By: #### C BC #### [facility] [address] [place] [address] Monocytes/100 WBC (Bld) 6.5 % Normal 2.0 - 10.0 [facility] Comment on above: Performed By: #### C BC #### [facility] [address] [place] [address] Neutrophils (Bld) [#/Vol] 4.32 10*3/uL Normal 1.20 - 7.70 [facility] Comment on above: Performed By: #### C BC #### [facility] [address] [place] [address] Neutrophils/100 WBC (Bld) 57.2 % Normal 40.0 - 80.0 [facility] Comment on above: Performed By: #### C BC #### [facility] [address] [place] [address] NUCLEATED RBC 0.0 /100 WBC Normal 0.0-0.0 [facility] Comment on above: Performed By: #### C BC #### [facility] [address] [place] [address] Platelets (Bld) [#/Vol] 228 10*3/uL Normal 150 - 450 [facility] Comment on above: Performed By: #### C BC #### [facility] [address] [place] [address] RBC 3.39 x10E12/L Low 4.00 - 5.20 [facility] Comment on above: Performed By: #### C BC #### [facility] [address] [place] [address] WBC (Bld) [#/Vol] 7.6 10*3/uL Normal 4.4 - 11.3 [facility] Comment on above: Performed By: #### C BC #### [facility] [address] [place] [address] Complete Blood Count + Diffe rentialon 09-23-2021 [...] % See Below [facility]astro[facility]ology-[facility] 6 [facility] Work Phone: Comment on above: [...] 10*3/uL 4.4 - 11.3 MG-Gas troen terology-Rosendo [facility] 6 [facility] Work Phone: Complete Blood Count + Differential 0.03 {x10E9/L} See Below MG-Gastroen terology-[facility] 6 [facility] Work Phone: Comment on above: Reference Range: 0.0 0 - 0.10 Complete Blood Count + Differential 0.27 {x10E9/L} See Below [facility]-Gastroen terology-[facility] 6 [facility] Work Phone: Comment on above: Reference Range: 0.0 0 - 0.70 Complete Blood Count + Differential 0.49 {x10E9/L} See Below [facility]-Gastroen terology-[facility] 6 [facility] Work Phone: Comment on above: Reference Range: 0.1 0 - 1.00 Complete Blood Count + Differential 2.41 {x10E9/L} See Below [facility]astroen terology-[facility] 6 [facility] Work Phone: Comment on above: Reference Range: 1.2 0 - 4.80 Complete Blood Count + Differential 4.32 {x10E9/L} See Below [facility]-Gastroen terology-[facility] 6 [facility] Work Phone: Comment on above: Reference Range: 1.2 0 - 7.70 Complete Blood Count + Differential 3.6 % 0.0 - 6.0 [facility]Gastroen terology-[facility] 6 [facility] Work Phone: Complete Blood Count + Differential 0.4 % 0.0 - 0.9 [facility]-Gastroen terology-Rosendo [place] 6 [facility] Work Phone: Comment on above: [...] threshold See Below MG-Gastroen terology-Rosendo gretaell 6 [facility] Work Phone: Comment on above: Reference Range: 12. 0 - 16.0 MCHC (RBC) [Mass/Vol] 32.5 g/dL See Below MG[facility]res[facility] I Work Phone: Comment on above: Reference Range: 32. 0 - 36.0 MCV (RBC) [Entitic vol] 92 fL 80 - 100 M G-Gastroen carlos alberto-[facility] 6 I Work Phone: Platelets (Bld) [#/Vol] 244 10*3/uL 150 - 450 MG-Gastroen carlos alberto-Rosendo gretaell 6 I Work Phone: RBC (Bld) [#/Vol] 3.33 {x10E12/L} below low threshold See Below MG-Gastroen terology-Rosendo gretaell 6 I Work Phone: Comment on above: Reference Range: 4.0 0 - 5.20 WBC (Bld) [#/Vol] 8.6 10*3/uL 4.4 - 11.3 MG-Gas troen terology-[facility] 6 I Work Phone: MAGNESIUMon 09-23-2021 Magnesium [Mass/Vol] 1.68 mg/dL Normal 1.60 - 2.40 [facility] Comment on above: Performed By: #### C BC #### [facility] [address] [place] [address] Magnesium, Serumon Magnesium [Mass/Vol] 1.68 mg/dL See [...] (Advanced Practice Nurse) done by Ambrocio Izaguirre ([facility]) Discharge - Partial Reconciliation: 23-Sep-2021 13:21 by: Ambrocio Izaguirre ([facility]) Discharge - Partial Reconciliation: 24-Sep-2021 10:12 by: Ambrocio Izaguirre ([facility]) Discharge - Partial Reconciliation: 30-Sep-2021 14:12 by: Concetta Shi ([facility]) Discharge - Partial Reconciliation: 30-Sep-2021 14:14 by: Concetta Shi ([facility]) Discharge - Reconciliation: 30-Sep-2021 14:24 by: Concetta Shi ([facility]) Discharge - Reset to Incomplete: 02-Oct-2021 15:36 by: Ambrocio Izaguirre ([facility]) Discharge - Reconciliation: 02-Oct-2021 15:40 by: Ambrocio Izaguirre ([facility]) Discharge - Reset to Incomplete: 02-Oct-2021 15:57 by: Ambrocio Izaguirre ([facility]) Discharge - Reconciliation: 02-Oct-2021 15:58 by: Ambrocio Izaguirre ([facility]) Home Medications EnteredFULLER HOSPITALE MEDICATIONS AT DISCHARGE DateReconciliation Comment/ Additional [...] not required (more content not included)... Normal [facility] PATH REVIEW-IMMUNOHEMATOLOGY on 09-23-2021 PATH REV-IMMUNOHEMOTOL LETA Normal [facility] Comment on above: Result Comment: By [...] PATIENT. Performed By: #### A FPA3 #### [facility] [address] [place] [address] RENAL FUNCTION PANELon 09-23 Albumin [Mass/Vol] 2.7 g/dL Low 3.4 - 5.0 [facility] Comment on above: Performed By: #### V FPA3 #### [facility] [address] [place] [address] Anion gap [Moles/Vol] 10 mmol/L Normal 10 - 20 [facility] Comment on above: Performed By: #### V FPA3 #### [facility] [address] [place] [address] Calcium [Mass/Vol] 7.9 mg/dL Low 8.6 - 10.6 [facility] Comment on above: Performed By: #### V FPA3 #### [facility] [address] [place] [address] Chloride [Moles/Vol] 108 mmol/L High 98 - 107 [facility] Comment on above: Performed By: #### V FPA3 #### [facility] [address] [place] [address] Creatinine [Mass/Vol] 0.39 mg/dL Low 0.50 - 1.05 [facility] Comment on above: Performed By: #### V FPA3 #### [facility] [address] [place] [address] eGFR FEMALE >90 Normal >90 [facility] Comment on above: Result Comment: CALC ULATIONS OF ESTIMATED GFR ARE PERFORMED USING THE 2020 CKD-EPI STUDY REFIT EQUATION WITHOUT THE RACE VARIABLE FOR THE IDMS-TRACEABLE CREATININE METHODS. https://jasn.asnjournals.org/content/early/ASN.810 2260076 Performed By: #### V FPA3 #### [facility] [address] [place] [address] Glucose [Mass/Vol] 87 mg/dL Normal 74 - 99 [facility] Comment on above: Performed By: #### V FPA3 #### [facility] [address] [place] [address] HCO3 (Bld) [Moles/Vol] 29 mmol/L Normal 21 - 32 [facility] Comment on above: Performed By: #### V FPA3 #### [facility] [address] [place] [address] Phosphate [Mass/Vol] 2.7 mg/dL Normal 2.5 - 4.9 [facility] Comment on above: Result Comment: The performance characteristics of phosphorus testing in heparinized plasma have been validated by the individual laboratory site where testing is performed. Testing on heparinized plasma is not approved by the FDA; however, such approval is not necessary. Performed By: #### V FPA3 #### [facility] [address] [place] [address] Potassium [Moles/Vol] 3.6 mmol/L Normal 3.5 - 5.3 [facility] Comment on above: Performed By: #### V FPA3 #### [facility] [address] [place] [address] Sodium [Moles/Vol] 143 mmol/L Normal 136 - 145 [facility] Comment on above: Performed By: #### V FPA3 #### [facility] [address] [place] [address] Urea nitrogen [Mass/Vol] 9 mg/dL Normal 6 - 23 [facility] Comment on above: Performed By: #### V FPA3 #### [facility] [address] [place] [address] Rehab Note-individual therap yon 09-23-2021 Rehab Note-individual therapy Rehab: Info: Disciplinephysical therapist Mode of Treatmentphysical therapy; individual therapy Time IN14:50 Time OUT15:29 Total Treatment [id number] Patient in ... at end of sessionbed, [...] sit to supine; rolling right Roll Left [place] (Bed Mobility)verbal cues; maximum assist (25% patient effort); 1 person assist Roll Right [place] (Bed Mobility)maximum assist (25% patient effort); verbal cues; 1 person assist Scoot/Bridge [place] (Bed Mobility)verbal cues; maximum assist (25% patient effort); 2 person assist; boost HOB Qeczbb-zc-Qyq [place] (Bed Mobility)verbal cues; maximum assist (25% patient effort); 1 person assist Gzm-mr-Abofry [place] (Bed Mobility)set up; verbal cues; maximum assist (25% patient effort); 1 person assist Assistive Device (Bed Mobility)bed rails; draw sheet Transfer Assessment/Interventionss it to stand transfer; stand to sit transfer Sit-Stand [place] (Transfers)2 person assist; moderate assist (50% patient effort) Sit-Stand Assistive Device (Transfers)B arm-in-arm assist Stand-Sit [place] (Transfers)2 person assist; moderate assist (50% patient [...] 23-Sep-2021 15:50 by Boone Broussard (PT) Normal [facility] Renal Function Panelon 09-23 Albumin BCP [...] Phone: Renal Function Panel >90 >90 [facility] 6 [facility] Work Phone: Comment on above: CALCULATIONS OF IVY MATED GFR ARE PERFORMED USING THE 2020 CKD-EPI STUDY REFIT EQUATION WITHOUT THE RACE VARIABLE FOR THE IDMS-TRACEABLE CREATININE METHODS.https://jasn.asnjournals.org/content/ /ASN.7789170653 ANTIBODY IDENT.on 09-22-2021 ANTIBODY IDENT. Anti-E Normal [facility] Comment on above: Performed By: #### V FPA3 #### [facility] [address] [place] [address] CBCon 09-22-2021 Erythrocyte distribution width (RBC) [Ratio] 13.2 % Normal 11.5 - 14.5 [facility] Comment on above: Performed By: #### V FPA3 #### [facility] [address] [place] [address] Hematocrit (Bld) [Volume fraction] 30.6 % Low 36.0 - 46.0 [facility] Comment on above: Performed By: #### V FPA3 #### [facility] [address] [place] [address] Hemoglobin (Bld) [Mass/Vol] 10.2 g/dL Low 12.0 - 16.0 [facility] Comment on above: Performed By: #### V FPA3 #### [facility] [address] [place] [address] MCHC (RBC) [Mass/Vol] 33.3 g/dL Normal 32.0 - 36.0 [facility] Comment on above: Performed By: #### V FPA3 #### [facility] [address] [place] [address] MCV (RBC) [Entitic vol] 91 fL Normal 80 - 100 [facility] Comment on above: Performed By: #### V FPA3 #### [facility] [address] [place] [address] NUCLEATED RBC 0.0 /100 WBC Normal 0.0-0.0 [facility] Comment on above: Performed By: #### V FPA3 #### [facility] [address] [place] [address] Platelets (Bld) [#/Vol] 215 10*3/uL Normal 150 - 450 [facility] Comment on above: Performed By: #### V FPA3 #### [facility] [address] [place] [address] RBC 3.37 x10E12/L Low 4.00 - 5.20 [facility] Comment on above: Performed By: #### V FPA3 #### [facility] [address] [place] [address] WBC (Bld) [#/Vol] 9.6 10*3/uL Normal 4.4 - 11.3 [facility] Comment on above: Performed By: #### V FPA3 #### [facility] [address] [place] [address] CBC AND DIFFERENTIALon 09-22 % AUTOMATED IMMATURE GRAN 0.4 % Normal 0.0 - 0.9 [facility] Comment on above: Result Comment: Jaleesa ture Granulocyte Count (IG) includes promyelocytes, myelocytes and metamyelocytes but does not include bands. Percent differential counts (%) should be interpreted in the context of the absolute cell counts (cells/L). Performed By: #### C BCDF ####[id number] [place] [address] Basophils (Bld) [#/Vol] 0.02 10*3/uL Normal 0.00 - 0.10 [facility] Comment on above: Performed By: #### C BCDF ####[id number] [place] [address] Basophils/100 WBC (Bld) 0.2 % Normal 0.0 - 2.0 [facility] Comment on above: Performed By: #### C BCDF ####[id number] [place] [address] Eosinophils (Bld) [#/Vol] 0.04 10*3/uL Normal 0.00 - 0.70 [facility] Comment on above: Performed By: #### C BCDF ####[id number] [place] [address] Eosinophils/100 WBC (Bld) 0.4 % Normal 0.0 - 6.0 [facility] Comment on above: Performed By: #### C BCDF ####[id number] [place] [address] Erythrocyte distribution width (RBC) [Ratio] 13.2 % Normal 11.5 - 14.5 [facility] Comment on above: Performed By: #### C BCDF ####[id number] [place] [address] Hematocrit (Bld) [Volume fraction] 30.6 % Low 36.0 - 46.0 [facility] Comment on above: Performed By: #### C BCDF ####[id number] [place] [address] Hemoglobin (Bld) [Mass/Vol] 10.3 g/dL Low 12.0 - 16.0 [facility] Comment on above: Performed By: #### C BCDF ####[id number] [place] [address] Lymphocytes (Bld) [#/Vol] 2.19 10*3/uL Normal 1.20 - 4.80 [facility] Comment on above: Performed By: #### C BCDF ####[id number] [place] [address] Lymphocytes/100 WBC (Bld) 19.9 % Normal 13.0 - 44.0 [facility] Comment on above: Performed By: #### C BCDF ####[id number] [place] [address] MCHC (RBC) [Mass/Vol] 33.7 g/dL Normal 32.0 - 36.0 [facility] Comment on above: Performed By: #### C BCDF ####[id number] [place] [address] MCV (RBC) [Entitic vol] 90 fL Normal 80 - 100 [facility] Comment on above: Performed By: #### C BCDF ####[id number] [place] [address] Monocytes (Bld) [#/Vol] 0.71 10*3/uL Normal 0.10 - 1.00 [facility] Comment on above: Performed By: #### C BCDF ####[id number] [place] [address] Monocytes/100 WBC (Bld) 6.5 % Normal 2.0 - 10.0 [facility] Comment on above: Performed By: #### C BCDF ####[id number] [place] [address] Neutrophils (Bld) [#/Vol] 7.98 10*3/uL High 1.20 - 7.70 [facility] Comment on above: Performed By: #### C BCDF ####[id number] [place] [address] Neutrophils/100 WBC (Bld) 72.6 % Normal 40.0 - 80.0 [facility] Comment on above: Performed By: #### C BCDF ####[id number] [place] [address] NUCLEATED RBC 0.0 /100 WBC Normal 0.0-0.0 [facility] Comment on above: Performed By: #### C BCDF ####[id number] [place] [address] Platelets (Bld) [#/Vol] 242 10*3/uL Normal 150 - 450 [facility] Comment on above: Performed By: #### C BCDF ####[id number] [place] [address] RBC 3.39 x10E12/L Low 4.00 - 5.20 [facility] Comment on above: Performed By: #### C BCDF ####[id number] [place] [address] WBC (Bld) [#/Vol] 11.0 10*3/uL Normal 4.4 - 11.3 [facility] Comment on above: Performed By: #### C BCDF ####[id number] [place] [address] Complete Blood Count + Diffe vidya 09-22-2021 [...] with at bedside. She is currently on DRYING FRAME OPERATOR for pain, and reports being tired [...] this time. Objective: Objective Information: T PRBPSpO2 [id number]/5792% Date/Time09/22 0:001/18 8:001/18 8:001/18 8:001/18 8:00 Range(36.3C [...] Fair. Medications: Continuous Medications ------- 1. HYDROmorphone DRYING FRAME OPERATOR 25 mg/ NaCL 0.9% 50 mL: 2.6 mg/hr IV DRYING FRAME OPERATOR 2. Sodium Chloride 0.9% Infusion: 1000 [...] from Suboxone (more content not included)... Normal [facility] Daily Progress Note-Nuha stearns 09-22-2021 Daily Progress Note-Neurosurgery Service: Neurosurgery Subjective Data: MORALES LEE is a 46 year old Female who is Hospital Day # 8 and POD #1 for posterior L4-L5 decompression;posterior L4-L5 arthrodesis. Objective Data: Objective Information: T PRBPSpO2 [id number]/5895% Date/Time09/22 0:00118 0:00118 0:00118 0:00118 0:00 Range(36.2C - 36.8C ) (82 - 109 ) (12 - 20 ) (85 - 132 )/ (49 - 89 ) (94% - 100% ) As of 21-Sep-2021 17:00:00, patient is on 4 L/min of oxygen via nasal cannula. Pain reported at 09/21 16:33: 5 = Moderate ---- Intake and Output ----- Mn/Dy/Year TimeIntakeOutputNet Sep 20, 2021 10:00 [id number] Sep 20, 2021 6:00 [id number] The Intake and Output Totals for the last 24 hours are: IntakeOutputNet [id number] Physical Exam by System: Neurological: A&Ox3 RUE [...] Chronic pain recs- intra-op ketamine, meloxicam post-op, DRYING FRAME OPERATOR until good PT eval, Suboxone as OP COWS psych recs alvares for retention SCD's, [facility] Attestation: Note Completion: I am a: [...] the note. I personally evaluated the patient [id number] Electronic Signatures: Fidel Maciel (Resident)) (Signed 22-Sep-2021 00:35) Authored: Service, Subjective Data, Objective Data, Assessment and Plan, Note Completion Lex Frederick) (Signed 22-Sep-2021 10:31) Authored: Note Completion Co-Signer: Service, Subjective Data, Objective Data, Assessment and Plan, Note Completion Last Updated: 22-Sep-2021 10:31 by Lex Frederick) [facility] Discharge [id number] Discharge Profile2 Discharge Orders: Anticipated Discharge Date: Anticipated Discharge [id number] Problem List: Additional Dx: Spinal stenosis of [...] Please call your Neurosurgeon's office (Dr. Frederick [phone]) if you have any questions. -If you [...] or twist. Instead, bend at knees to bulk picker objects. Wound Care: Inspect your incision [...] taking Acetamin (more content not included)... Normal [facility] LACTATEon 09-22-2021 Lactate [Moles/Vol] 0.8 mmol/L Normal 0.4 - 2.0 [facility] Comment on above: Result Comment: Trina puncture immediately after or during the administration of Metamizole may lead to falsely low results. Testing should be performed immediately prior to Metamizole dosing. Performed By: #### C BC #### [facility] [address] [place] [address] Laboratory - Hematology and Cell countson 09-22-2021 [...] threshold See Below MG-Gastroen terology-[place] [facility] 6 [facility] Work Phone: Comment on above: Reference Range: 12. 0 - 16.0 MCHC (RBC) [Mass/Vol] 33.3 g/dL See Below MG- Gastroen terology-Rosendo [facility] 6 I Work Phone: Comment on above: Reference Range: 32. 0 - 36.0 MCV (RBC) [Entitic vol] 91 fL 80 - 100 M G-Gastroen terology-Rosendo [facility] 6 [facility] Work Phone: Platelets (Bld) [#/Vol] 215 10*3/uL 150 - 450 MG-Gastroen terology-Rosendo [facility] 6 [facility] Work Phone: RBC (Bld) [#/Vol] 3.37 {x10E12/L} below low threshold See Below MG-Gastroen terology-[facility]endo ell 6 [facility] Work Phone: Comment on above: Reference Range: 4.0 0 - 5.20 WBC (Bld) [#/Vol] 9.6 10*3/uL 4.4 - 11.3 MG-Gas troen terology-Rosendo [facility] 6 [facility] Work Phone: Lactate, Levelon 09-22-2021 Lactate [Moles/Vol] 0.8 mmol/L 0.4 - 2.0 MG-Ga stroen terology-Rosendo [facility] 6 [facility] Work Phone: Comment on above: Venipuncture immedia [...] safety. Time IN10:50 Time OUT11:40 Total Treatment [id number] Patient in ... at end of sessionbed, 3 railings up; alarm on Communicated with ... at end of sessionbedside nurse Patient Effortgood Symptoms Noted During/After Treatmentfatigue; increased pain Patient Profile Reviewedyes Onset of Illness/Injury or Date of [id number] Reason for Referral-09/18/21: s/p exploration of spinal [...] EOB sitting. Pertinent History of Current Functional [id number] y/o with hx of HTN, C6-7 ACDF, [...] TubesIV; triple lumen; telemetry; urethral catheter indwelling; DRYING FRAME OPERATOR pump, DAVOL drain, wound vac O2 Deliverynasal cannula; 4L Pre Treatment Patient Positionsupine Pre Treatment Blood Pressure Zpdlwpvl44 mmHg Pre Treatment Diastolic (mm Hg)46 mmHg Pre Treatment Heart Rate (beats/min)67 Pre Treatment Respiratory Rate (breaths/min)19 Pre Treatment SpO2 (%)96 % Pre Treatment Oxygen Deliverysupplemental O2 Pre Treatment CommentsMAP 56 During Treatment Patient Positionsitting During Treatment Blood Pressure Vhhzuztp76 mmHg During Treatment Diastolic (mm Hg)77 mmHg [...] to sit; sit to supine Roll Left [place] (Bed Mobility)set up; verbal cues; 2 person assist; Pt required assist to bend BLE at (more content not included)... Normal [facility] PATH REVIEW-IMMUNOHEMATOLOGY on 09-22-2021 PATH REV-IMMUNOHEMOTOL ZURDO Normal [facility] Comment on above: Result Comment: By [...] THIS PATIENT. Performed By: #### C #### [facility] [address] [place] [address] PT Evaluation g7-oa-yqcjxetl t - co-treatment with OT to [facility] 09-22-2021 PT Evaluation i1-yg-ukrgfnpmc - co-treatment with OT to [facility] Rehab: Info: Mode of Treatmentphysical therapy; co-treatment; co-treatment with OT to maximize safety, mobility and ADL participation Time IN10:50 Time OUT11:40 Total Treatment Gpgtjfw41 Patient in ... at end of sessionbed, 3 railings up; alarm on Communicated with ... at end of sessionbedside nurse Patient Effortgood Symptoms Noted During/After Treatmentfatigue; increased pain Patient Profile Reviewedyes Onset of Illness/Injury or Date of Owrgteq40-Dqv-1656 Reason for Referral-09/18/21: s/p exploration of spinal [...] TubesIV; triple lumen; telemetry; urethral catheter indwelling; DRYING FRAME OPERATOR pump, DAVOL drain, wound vac O2 Deliverynasal cannula; 4L Pre Treatment Patient Positionsupine Pre Treatment Blood Pressure Fiqrntbh18 mmHg Pre Treatment Diastolic (mm Hg)46 mmHg Pre Treatment Heart Rate (beats/min)67 Pre Treatment SpO2 (%)96 % Pre Treatment Oxygen Deliverysupplemental O2 During Treatment Patient Positionsitting During Treatment Blood Pressure Dldsyrax11 mmHg During Treatment Diastolic (mm Hg)77 mmHg [...] sit to supine; rolling right Roll Left [place] (Bed Mobility)verbal cues; 2 person assist; Pt required assist to bend BLE at knees and to initiate turn at shoulders and hips, verbal cues for grasp on bed rail, technique, direction follow, and encouragement.; maximum assist (25% patient effort) Roll Right [place] (Bed Mobility)2 person assist; maximum assist (25% patient effort); verbal cues Scoot/Bridge [place] (Bed Mobility)verbal cues; maximum assist (25% patient effort); 2 person assist; boost HOB Ugeqrm-wy-Fad [place] (Bed Mobility)verbal cues; maximum assist (25% patient effort); 1 person assist Efd-qj-Syaqrd [place] (Bed Mobility)set up; verbal cues; maximum assist (25% patient effort); 1 person assist Assistive Device (Bed Mobility)bed rails; draw sheet Impairments Impacting Function (Mobility)balance; cognition; endurance/activity tolerance; pain; strength; postural/trunk control; motor control Motor: Sitting, Static (Balance)SBA Sitting, Dynamic (Balance)CGA Whz-ot-Yhujr (Balance)MADELIN this visit. Pt hypotensive Sensory: Pre-Treatment Pain Rating7/10 Post-Treatment Pain Rating7/10 Comment, Pre/Post Treatment PainPt reported pain throughout buttocks and back, utilized DRYING FRAME OPERATOR pump as needed. Pain LimitationFunctional mobility limited due pain; ADLs/IADLs limited due to pain; Participation limited by pain; RN or team was notified of limitations due to p (more content not included)... Normal [facility] RENAL FUNCTION PANELon 09-22 Albumin [Mass/Vol] 2.7 g/dL Low 3.4 - 5.0 [facility] Comment on above: Performed By: #### C BC #### [facility] [address] [place] [address] Anion gap [Moles/Vol] 10 mmol/L Normal 10 - 20 [facility] Comment on above: Performed By: #### C BC #### [place] [address] [place] [address] Calcium [Mass/Vol] 7.8 mg/dL Low 8.6 - 10.6 [facility] Comment on above: Performed By: #### C BC #### [facility] [address] [place] [address] Chloride [Moles/Vol] 105 mmol/L Normal 98 - 107 [facility] Comment on above: Performed By: #### C BC #### [facility] [address] [place] [address] Creatinine [Mass/Vol] 0.49 mg/dL Low 0.50 - 1.05 [facility] Comment on above: Performed By: #### C BC #### [place] [address] [place] [address] eGFR FEMALE >90 Normal >90 [facility] Comment on above: Result Comment: CALC ULATIONS OF ESTIMATED GFR ARE PERFORMED USING THE 2020 CKD-EPI STUDY REFIT EQUATION WITHOUT THE RACE VARIABLE FOR THE IDMS-TRACEABLE CREATININE METHODS. https://jasn.asnjournals.org/content/early//ASN.178 9162529 Performed By: #### C BC #### [facility] [address] [place] [address] Glucose [Mass/Vol] 93 mg/dL Normal 74 - 99 [facility] Comment on above: Performed By: #### C BC #### [facility] [address] [place] [address] HCO3 (Bld) [Moles/Vol] 29 mmol/L Normal 21 - 32 [facility] Comment on above: Performed By: #### C BC #### [facility] [address] [place] [address] Phosphate [Mass/Vol] 2.4 mg/dL Low 2.5 - 4.9 [facility] Comment on above: Result Comment: The performance characteristics of phosphorus testing in heparinized plasma have been validated by the individual laboratory site where testing is performed. Testing on heparinized plasma is not approved by the FDA; however, such approval is not necessary. Performed By: #### C BC #### [facility] [address] [place] [address] Potassium [Moles/Vol] 4.3 mmol/L Normal 3.5 - 5.3 [facility] Comment on above: Performed By: #### C BC #### [facility] [address] [place] [address] Sodium [Moles/Vol] 140 mmol/L Normal 136 - 145 [facility] Comment on above: Performed By: #### C BC #### [facility] [address] [place] [address] Urea nitrogen [Mass/Vol] 9 mg/dL Normal 6 - 23 [facility] Comment on above: Performed By: #### C BC #### [facility] [address] [place] [address] Renal Function Panelon 09-22 Albumin BCP dye [...] - 5.3 [facility]- Gastroen terology-[place] 6 [facility] Work Phone: Sodium [Moles/Vol] 140 mmol/L 136 - 145 [facility]-Gas troen terology-[place] 6 I Work Phone: Urea nitrogen [Mass/Vol] 9 mg/dL 6 - 23 [facility]astroen [facility]ology[facility] [facility] I Work Phone: Renal Function Panel >90 >90 MG-G astroen terology-[place] 6 [facility] Work Phone: Comment on above: CALCULATIONS OF IVY MATED GFR ARE PERFORMED USING THE 2020 CKD-EPI STUDY REFIT EQUATION WITHOUT THE RACE VARIABLE FOR THE IDMS-TRACEABLE CREATININE METHODS.https://jasn.asnjournals.org/content/ /ASN.0159879404 UA MICROSCOPICon 09-22-2021 RBC 6 /HPF Abnormal 0-5 [facility] Comment on above: Performed By: #### C BC #### [facility] [address] [place] [address] SQUAMOUS EPITH. CELLS 1 /HPF Normal [facility] Comment on above: Performed By: #### C BC #### [facility] [address] [place] [address] WBC 8 /HPF Abnormal 0-5 [facility] Comment on above: Performed By: #### C BC #### [facility] [address] [place] [address] URINALYSIS WITH CULTURE IF I NDICATEDon 09-22-2021 Appearance (U) CLEAR Normal CLEAR [facility] Comment on above: Performed By: #### U ARFX ####[id number] [place] [address] Bilirubin Ql (U) Negative Normal NEGATIVE [facility] Comment on above: Performed By: #### U ARFX ####[id number] [place] [address] Color (U) MIRANDA Normal STRAW,YELL OW [facility] Comment on above: Performed By: #### U ARFX ####[id number] [place] [address] Glucose Ql (U) Negative Normal NEGATIVE [facility] Comment on above: Performed By: #### U ARFX ####[id number] [place] [address] Hemoglobin Ql (U) Negative Normal NEGATIVE [facility] Comment on above: Performed By: #### U ARFX ####[id number] [place] [address] Ketones Ql (U) 20 (1+) Abnormal NEGATIVE [facility] Comment on above: Performed By: #### U ARFX ####[id number] [place] [address] Leukocyte esterase Test strip Ql (U) Negative Normal NEGATIVE [facility] Comment on above: Performed By: #### U ARFX ####[id number] [place] [address] Nitrite Ql (U) Negative Normal NEGATIVE [facility] Comment on above: Performed By: #### U ARFX ####[id number] [place] [address] pH (U) 5.0 [pH] Normal 5.0 - 8.0 [facility] Comment on above: Performed By: #### U ARFX ####[id number] [place] [address] Protein Ql (U) 30 (1+) Abnormal NEGATIVE [facility] Comment on above: Performed By: #### U ARFX ####[id number] [place] [address] Specific gravity (U) [Rel density] 1.040 High 1.005 - 1.035 [facility] Comment on above: Performed By: #### U ARFX ####[id number] [place] [address] Urobilinogen (U) [Mass/Vol] 2.0 mg/dL High 0.0 - 1.9 [facility] Comment on above: Result Comment: Due [...] positive urobilinogen. Performed By: #### U ARFX ####[id number] [place] [address] Lab Specimen Source Normal [facility] Comment on above: Performed By: #### U ARFX ####[id number] [place] [address] Performed By: #### C BC #### [facility] [address] [place] [address] Color (U) MIRANDA See Below [facility]-Gastroen terology-Ros[facility] [...] CULTURE,BACTERIALon URINE CULTURE,BACTERIAL PATIENT: Fay LEE LOCATION: [place] [address] BILL#: [id number] : 71 AGE: SEX: F ORDERED BY: AMBROCIO IZAGUIRRE SOURCE: URINE COLLECTED: 09/22/21 12:59 ANTIBIOTICS AT [facility].: RECEIVED : 09/22/21 14:59 SITE: R E S U L T S URINE CULTURE,BACTERIAL FINAL 09/23/21 09:04 NO SIGNIFICANT GROWTH. Normal [facility] Comment on above: Performed By: #### C BC #### [facility] [address] [place] [address] Urinalysis, Microscopicon Urinalysis, Microscopic 1 {/HPF} M [facility]astroen [facility]ology[facility] [facility] I Work Phone: Urinalysis, Microscopic 6 {/HPF} Abnormal 0-5 M [facility]astroen [facility] [facility] I Work Phone: Urinalysis, Microscopic 8 {/HPF} Abnormal 0-5 M [facility]astroen [facility] [facility] I Work Phone: Comment on above: SOURCE: CBCon 09-21-2021 Erythrocyte distribution width (RBC) [Ratio] 13.1 % Normal 11.5 - 14.5 [facility] Comment on above: Performed By: #### R ENAL #### [facility] [address] [place] [address] Hematocrit (Bld) [Volume fraction] 34.5 % Low 36.0 - 46.0 [facility] Comment on above: Performed By: #### R ENAL #### [facility] [address] [place] [address] Hemoglobin (Bld) [Mass/Vol] 11.4 g/dL Low 12.0 - 16.0 [facility] Comment on above: Performed By: #### R ENAL #### [facility] [address] [place] [address] MCHC (RBC) [Mass/Vol] 33.0 g/dL Normal 32.0 - 36.0 [facility] Comment on above: Performed By: #### R ENAL #### [facility] [address] [place] [address] MCV (RBC) [Entitic vol] 91 fL Normal 80 - 100 [facility] Comment on above: Performed By: #### R ENAL #### [facility] [address] [place] [address] NUCLEATED RBC 0.0 /100 WBC Normal 0.0-0.0 [facility] Comment on above: Performed By: #### R ENAL #### [facility] [address] [place] [address] Platelets (Bld) [#/Vol] 269 10*3/uL Normal 150 - 450 [facility] Comment on above: Performed By: #### R ENAL #### [facility] [address] [place] [address] RBC 3.81 x10E12/L Low 4.00 - 5.20 [facility] Comment on above: Performed By: #### R ENAL #### [facility] [address] [place] [address] WBC (Bld) [#/Vol] 14.6 10*3/uL High 4.4 - 11.3 [facility] Comment on above: Performed By: #### R ENAL #### [facility] [address] [place] [address] Erythrocyte distribution width (RBC) [Ratio] 13.2 % Normal 11.5 - 14.5 [facility] Comment on above: Performed By: #### R ENAL #### [facility] [address] [place] [address] Hematocrit (Bld) [Volume fraction] 35.8 % Low 36.0 - 46.0 [facility] Comment on above: Performed By: #### R ENAL #### [facility] [address] [place] [address] Hemoglobin (Bld) [Mass/Vol] 11.9 g/dL Low 12.0 - 16.0 [facility] Comment on above: Performed By: #### R ENAL #### [facility] [address] [place] [address] MCHC (RBC) [Mass/Vol] 33.2 g/dL Normal 32.0 - 36.0 [facility] Comment on above: Performed By: #### R ENAL #### [facility] [address] [place] [address] MCV (RBC) [Entitic vol] 91 fL Normal 80 - 100 [facility] Comment on above: Performed By: #### R ENAL #### [facility] [address] [place] [address] NUCLEATED RBC 0.0 /100 WBC Normal 0.0-0.0 [facility] Comment on above: Performed By: #### R ENAL #### [facility] [address] [place] [address] Platelets (Bld) [#/Vol] 215 10*3/uL Normal 150 - 450 [facility] Comment on above: Performed By: #### R ENAL #### [facility] [address] [place] [address] RBC 3.93 x10E12/L Low 4.00 - 5.20 [facility] Comment on above: Performed By: #### R ENAL #### [place] [address] [place] [address] WBC (Bld) [#/Vol] 14.8 10*3/uL High 4.4 - 11.3 [facility] Comment on above: Performed By: #### R ENAL #### [facility] [address] [place] [address] Daily Progress Note-Neurosjudy stearns 09-21-2021 Daily Progress Note-Neurosurgery Service: Neurosurgery Subjective Data: MORALES LEE is a 46 year old Female who is Hospital Day # 7 and POD #3 for 1. Exploration of spinal fusion;2. Reduction of L4/5 dislocation;2. L5-pelvis instrumented fusion with posterolateral arthrodesis;4. Extension of instrumentation with multiple kwame construct and side connectors. 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 Normal [facility] Laboratory - Blood bankon ABO group [...] lumbar spine September 18, 2021 ACCESSION NUMBER(S): [id number]; [id number] ORDERING CLINICIAN: DEVANTE NUNEZ TECHNIQUE: Sagittal axial [...] Electronically signed by: NATALIA WALL DO Normal [facility] NR MRI T-SPINE WOon 09-21-19 NR MRI T-SPINE WO Patient Name: MROALES LEE STUDY: MRI T-SPINE WO; MRI L-SPINE WO; 09/20/2021 10:40 pm; 09/20/2021 10:42 pm INDICATION: postop foot weakness, Lie Flat: Yes, Pre Med: No . COMPARISON: MRI December 24, [address] of the lumbar spine September 18, 2021 ACCESSION NUMBER(S): [id number]; [id number] ORDERING CLINICIAN: DEVANTE NUNEZ TECHNIQUE: Sagittal axial [...] Electronically signed by: NATALIA WALL DO Normal [facility] No Panel Informationon 09-21 0.0 {/100_WBC} [...] Preop Checklist Preop Checklist: Preop Checklist: Arrival [id number] Arrival Time11:00 Procedure Typere-exploration of spine Temperature C36.2 degrees C Temperature F97.1 degrees F Heart Rate91 beats per minute Respiratory Rate18 breath per minute Blood Pressure Roeatouc681 mm/Hg Blood Pressure Dineihwzw30 mm/Hg COVID 19 Results in Last 7 [...] Preop Checklist Last Updated: 21-Sep-2021 11:17 by Lihn Buchanan (RN) Normal [facility] REQUEST-LEUKOREDUCED RED ANJU LSon 09-21-2021 REQUEST-LEUKOREDUCED RED CELLS ORDER RECD Normal [facility] Comment on above: Performed By: #### A FPA3 #### [facility] [address] [place] [address] TYPE + SCREENon 09-21-2021 ABO TYPE O Normal [facility] Comment on above: Performed By: #### A FPA3 #### [facility] [address] [place] [address] RH TYPE Positive Normal [facility] Comment on above: Performed By: #### A FPA3 #### [facility] [address] [place] [address] ABO TYPE Canceled Normal [facility] Comment on above: Order Comment: VENECIA ESPINO, 09/21/2021 05:08TEST TYPE + SCREEN WAS CANCELLED, 09/21/2021 05:06 NO PHLEB ID ON TUBE. Result Comment: EULA ESPINO, 09/21/2021 05:08 Performed By: #### A FPA3 #### [facility] [address] [place] [address] RH TYPE Canceled Normal [facility] Comment on above: Order Comment: VENECIA ESPINO, 09/21/2021 05:08TEST TYPE + SCREEN WAS CANCELLED, 09/21/2021 05:06 NO PHLEB ID ON TUBE. Result Comment: CALL ED RN AFSANEH ESPINO, 09/21/2021 05:08 Performed By: #### A FPA3 #### [facility] [address] [place] [address] CBCon 09-20-2021 Erythrocyte distribution width (RBC) [Ratio] 13.2 % Normal 11.5 - 14.5 [facility] Comment on above: Performed By: #### C BC #### [facility] [address] [place] [address] Hematocrit (Bld) [Volume fraction] 30.8 % Low 36.0 - 46.0 [facility] Comment on above: Performed By: #### C BC #### [facility] [address] [place] [address] Hemoglobin (Bld) [Mass/Vol] 9.8 g/dL Low 12.0 - 16.0 [facility] Comment on above: Performed By: #### C BC #### [facility] [address] [place] [address] MCHC (RBC) [Mass/Vol] 31.8 g/dL Low 32.0 - 36.0 [facility] Comment on above: Performed By: #### C BC #### [facility] [address] [place] [address] MCV (RBC) [Entitic vol] 93 fL Normal 80 - 100 [facility] Comment on above: Performed By: #### C BC #### [facility] [address] [place] [address] NUCLEATED RBC 0.0 /100 WBC Normal 0.0-0.0 [facility] Comment on above: Performed By: #### C BC #### [facility] [address] [place] [address] Platelets (Bld) [#/Vol] 224 10*3/uL Normal 150 - 450 [facility] Comment on above: Performed By: #### C BC #### [facility] [address] [place] [address] RBC 3.32 x10E12/L Low 4.00 - 5.20 [facility] Comment on above: Performed By: #### C BC #### [facility] [address] [place] [address] WBC (Bld) [#/Vol] 12.1 10*3/uL High 4.4 - 11.3 [facility] Comment on above: Performed By: #### C BC #### [facility] [address] [place] [address] Daily Progress Note-Neurosjudy stearns 09-20-2021 Daily Progress Note-Neurosurgery Service: Neurosurgery Subjective Data: MORALES LEE is a 46 year old Female who is Hospital Day # 6 and POD #2 for 1. Exploration of spinal fusion;2. Reduction of L4/5 dislocation;2. L5-pelvis instrumented fusion with posterolateral arthrodesis;4. Extension of instrumentation with multiple kwame construct and side connectors. Objective Data: Objective Information: T PRBPSpO2 [id number]/5095% Date/Time09/19 16: 1: 16: 1:341 1:34 Range(36.7C - 36.7C ) (84 - 110 ) (18 - 18 ) (82 - 118 )/ (50 - 97 ) (94% - 97% ) As of 19-Sep-2021 08:00:00, patient is on 2 L/min of oxygen via nasal cannula. 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, Suboxone as [...] Updated: 21-Sep-2021 11:28 by Perez Carlisle) Normal [facility] - Hematology and Cell countson [...] 20-Sep-2021 12:25 by Carole Carlos (OT) Normal [facility] PT Evaluation v2-attemptedon 09-20-2021 PT Evaluation v2-attempted Rehab: Info: Mode of Treatmentattempted Time IN12:00 Evaluation Not PerformedPer RN pt not appropriate for therapy, pt continues to have low BP and plan to receive blood, will hold and reattempt as appropriate Electronic Signatures: Kaykay Yoo (PT) (Signed 20-Sep-2021 12:42) Authored: Info Last Updated: 20-Sep-2021 12:42 by Kaykay Yoo (PT) Normal [facility] REQUEST-LEUKOREDUCED RED ANJU LSon 09-20-2021 REQUEST-LEUKOREDUCED RED CELLS ORDER RECD Normal [facility] Comment on above: Performed By: #### R ENAL #### [facility] [address] [place] [address] CBCon 09-19-2021 Erythrocyte distribution width (RBC) [Ratio] 12.4 % Normal 11.5 - 14.5 [facility] Comment on above: Performed By: #### R ENAL #### [facility] [address] [place] [address] Hematocrit (Bld) [Volume fraction] 38.3 % Normal 36.0 - 46.0 [facility] Comment on above: Performed By: #### R ENAL #### [facility] [address] [place] [address] Hemoglobin (Bld) [Mass/Vol] 13.4 g/dL Normal 12.0 - 16.0 [facility] Comment on above: Performed By: #### R ENAL #### [facility] [address] [place] [address] MCHC (RBC) [Mass/Vol] 35.0 g/dL Normal 32.0 - 36.0 [facility] Comment on above: Performed By: #### R ENAL #### [facility] [address] [place] [address] MCV (RBC) [Entitic vol] 85 fL Normal 80 - 100 [facility] Comment on above: Performed By: #### R ENAL #### [facility] [address] [place] [address] NUCLEATED RBC 0.0 /100 WBC Normal 0.0-0.0 [facility] Comment on above: Performed By: #### R ENAL #### [facility] [address] [place] [address] Platelets (Bld) [#/Vol] 326 10*3/uL Normal 150 - 450 [facility] Comment on above: Performed By: #### R ENAL #### [facility] [address] [place] [address] RBC 4.51 x10E12/L Normal 4.00 - 5.20 [facility] Comment on above: Performed By: #### R ENAL #### [facility] [address] [place] [address] WBC (Bld) [#/Vol] 20.5 10*3/uL High 4.4 - 11.3 [facility] Comment on above: Performed By: #### R ENAL #### [facility] [address] [place] [address] CBC AND DIFFERENTIALon 09-19 % AUTOMATED IMMATURE GRAN 0.6 % Normal 0.0 - 0.9 [facility] Comment on above: Result Comment: Jaleesa ture Granulocyte Count (IG) includes promyelocytes, myelocytes and metamyelocytes but does not include bands. Percent differential counts (%) should be interpreted in the context of the absolute cell counts (cells/L). Performed By: #### V FPA3 #### [facility] [address] [place] [address] Basophils (Bld) [#/Vol] 0.03 10*3/uL Normal 0.00 - 0.10 [facility] Comment on above: Performed By: #### V FPA3 #### [facility] [address] [place] [address] Basophils/100 WBC (Bld) 0.1 % Normal 0.0 - 2.0 [facility] Comment on above: Performed By: #### V FPA3 #### [facility] [address] [place] [address] Eosinophils (Bld) [#/Vol] 0.01 10*3/uL Normal 0.00 - 0.70 [facility] Comment on above: Performed By: #### V FPA3 #### [facility] [address] [place] [address] Eosinophils/100 WBC (Bld) 0.0 % Normal 0.0 - 6.0 [facility] Comment on above: Performed By: #### V FPA3 #### [facility] [address] [place] [address] Erythrocyte distribution width (RBC) [Ratio] 12.9 % Normal 11.5 - 14.5 [facility] Comment on above: Performed By: #### V FPA3 #### [facility] [address] [place] [address] Hematocrit (Bld) [Volume fraction] 38.3 % Normal 36.0 - 46.0 [facility] Comment on above: Performed By: #### V FPA3 #### [facility] [address] [place] [address] Hemoglobin (Bld) [Mass/Vol] 12.7 g/dL Normal 12.0 - 16.0 [facility] Comment on above: Performed By: #### V FPA3 #### [facility] [address] [place] [address] Lymphocytes (Bld) [#/Vol] 2.89 10*3/uL Normal 1.20 - 4.80 [facility] Comment on above: Performed By: #### V FPA3 #### [facility] [address] [place] [address] Lymphocytes/100 WBC (Bld) 13.5 % Normal 13.0 - 44.0 [facility] Comment on above: Performed By: #### V FPA3 #### [facility] [address] [place] [address] MCHC (RBC) [Mass/Vol] 33.2 g/dL Normal 32.0 - 36.0 [facility] Comment on above: Performed By: #### V FPA3 #### [facility] [address] [place] [address] MCV (RBC) [Entitic vol] 89 fL Normal 80 - 100 [facility] Comment on above: Performed By: #### V FPA3 #### [facility] [address] [place] [address] Monocytes (Bld) [#/Vol] 1.23 10*3/uL High 0.10 - 1.00 [facility] Comment on above: Performed By: #### V FPA3 #### [facility] [address] [place] [address] Monocytes/100 WBC (Bld) 5.7 % Normal 2.0 - 10.0 [facility] Comment on above: Performed By: #### V FPA3 #### [facility] [address] [place] [address] Neutrophils (Bld) [#/Vol] 17.16 10*3/uL High 1.20 - 7.70 [facility] Comment on above: Performed By: #### V FPA3 #### [facility] [address] [place] [address] Neutrophils/100 WBC (Bld) 80.1 % Normal 40.0 - 80.0 [facility] Comment on above: Performed By: #### V FPA3 #### [facility] [address] [place] [address] NUCLEATED RBC 0.0 /100 WBC Normal 0.0-0.0 [facility] Comment on above: Performed By: #### V FPA3 #### [facility] [address] [place] [address] Platelets (Bld) [#/Vol] 401 10*3/uL Normal 150 - 450 [facility] Comment on above: Performed By: #### V FPA3 #### [facility] [address] [place] [address] RBC 4.28 x10E12/L Normal 4.00 - 5.20 [facility] Comment on above: Performed By: #### V FPA3 #### [facility] [address] [place] [address] WBC (Bld) [#/Vol] 21.5 10*3/uL High 4.4 - 11.3 [facility] Comment on above: Performed By: #### V FPA3 #### [facility] [address] [place] [address] COAGULATION SCREENon 022 aPTT Coag (Bld) [Time] 29 s Normal 26 - 39 [facility] Comment on above: Result Comment: Note new reference range as of 08/04/2021 at 10:00am. Performed By: #### R ENAL #### [facility] [address] [place] [address] PT Coag (PPP) [Time] 11.5 s Normal 9.8 - 13.4 [facility] Comment on above: Result Comment: Note new reference range as of 08/04/2021 at 10:00am. Performed By: #### R ENAL #### [facility] [address] [place] [address] PT, INR 1.0 Normal 0.9 - 1.1 [facility] Comment on above: Performed By: #### R ENAL #### [facility] [address] [place] [address] Complete Blood Count + Diffe vidya 09-19-2021 [...] 0.6 % 0.0 - 0.9 [facility]-Gastroen terology-[facility] I Work Phone: Comment on above: [...] connectors. Objective Data: Objective Information: T PRBPSpO2 Value36.01133192/8596% Date/Time09/18 17: 17: 17: 17: 17:40 Range(36.4C [...] ----- Mn/Dy/Year TimeIntakeOutputNet Sep 17, 2021 10:00 [id number] The Intake and Output Totals for the last 24 hours are: IntakeOutputNet [id number] Physical Exam by System: Neurological: A&Ox3 RUE D5, B5, T5, HG5, IO5 LUE D4+, B4+, T4+, HG4+, IO5 RLE HF 4+, KE4+, PF5, DF5 (pain limited) LLE HF 4-, KE4-, PF4, DF5 Recent Lab Results: Results: Recent Arterial Blood Gas Results 09/18/2021 11:48 [id number] 24 h range: ( 219 - 224 ) pH7.44 24 h range: ( 7.44 - 7.45 ) vRZ806 24 h range: ( 37 - 40 ) YH7712 24 h range: ( 100 - 100 ) Base Excess2.8 24 h range: ( 1.8 - 2.8 ) Sxgqvdascwp40.2 24 h range: ( 25.7 - 27.2 [...] the note. I personally evaluated the patient [id number] Comments/ Additional Findings Patients postoperative CT scan [...] Assessment an (more content not included)... Normal [facility] - Coagulationon 0 09-19-2021 aPTT [...] [Mass/Vol] 1.59 mg/dL Low 1.60 - 2.40 [facility] Comment on above: Performed By: #### R ENAL #### [facility] [address] [place] [address] PT Evaluation v2-attemptedon 09-19-2021 PT Evaluation v2-attempted Rehab: Info: Mode of Treatmentattempted Time IN11:37 Time OUT11:50 Total Treatment [id number] Evaluation Not PerformedHistory obtained, BP assessed in supine 79/54mmHg, RN notified and redone with 71/51mmHg, will hold PT eval at this time and reattempt as medically appropriate Electronic Signatures: Kaykay Yoo (PT) (Signed 19-Sep-2021 12:14) Authored: Info Last Updated: 19-Sep-2021 12:14 by Kaykay Yoo (PT) Normal [facility] RENAL FUNCTION PANELon 09-19 Albumin [Mass/Vol] 3.4 g/dL Normal 3.4 - 5.0 [facility] Comment on above: Performed By: #### A FPA3 #### [facility] [address] [place] [address] Anion gap [Moles/Vol] 18 mmol/L Normal 10 - 20 [facility] Comment on above: Performed By: #### A FPA3 #### [facility] [address] [place] [address] Calcium [Mass/Vol] 8.3 mg/dL Low 8.6 - 10.6 [facility] Comment on above: Performed By: #### A FPA3 #### [facility] [address] [place] [address] Chloride [Moles/Vol] 100 mmol/L Normal 98 - 107 [facility] Comment on above: Performed By: #### A FPA3 #### [facility] [address] [place] [address] Creatinine [Mass/Vol] 0.60 mg/dL Normal 0.50 - 1.05 [facility] Comment on above: Performed By: #### A FPA3 #### [facility] [address] [place] [address] eGFR FEMALE >90 Normal >90 [facility] Comment on above: Result Comment: CALC ULATIONS OF ESTIMATED GFR ARE PERFORMED USING THE 2020 CKD-EPI STUDY REFIT EQUATION WITHOUT THE RACE VARIABLE FOR THE IDMS-TRACEABLE CREATININE METHODS. https://jasn.asnjournals.org/content/early//ASN.971 7865862 Performed By: #### A FPA3 #### [facility] [address] [place] [address] Glucose [Mass/Vol] 82 mg/dL Normal 74 - 99 [facility] Comment on above: Performed By: #### A FPA3 #### [facility] [address] [place] [address] HCO3 (Bld) [Moles/Vol] 26 mmol/L Normal 21 - 32 [facility] Comment on above: Performed By: #### A FPA3 #### [facility] [address] [place] [address] Phosphate [Mass/Vol] 2.8 mg/dL Normal 2.5 - 4.9 [facility] Comment on above: Result Comment: The performance characteristics of phosphorus testing in heparinized plasma have been validated by the individual laboratory site where testing is performed. Testing on heparinized plasma is not approved by the FDA; however, such approval is not necessary. Performed By: #### A FPA3 #### [facility] [address] [place] [address] Potassium [Moles/Vol] 4.5 mmol/L Normal 3.5 - 5.3 [facility] Comment on above: Performed By: #### A FPA3 #### [facility] [address] [place] [address] Sodium [Moles/Vol] 139 mmol/L Normal 136 - 145 [facility] Comment on above: Performed By: #### A FPA3 #### [facility] [address] [place] [address] Urea nitrogen [Mass/Vol] 9 mg/dL Normal 6 - 23 [facility] Comment on above: Performed By: #### A FPA3 #### [facility] [address] [place] [address] Albumin [Mass/Vol] 3.6 g/dL Normal 3.4 - 5.0 [facility] Comment on above: Performed By: #### R ENAL #### [facility] [address] [place] [address] Anion gap [Moles/Vol] 13 mmol/L Normal 10 - 20 [facility] Comment on above: Performed By: #### R ENAL #### [facility] [address] [place] [address] Calcium [Mass/Vol] 8.9 mg/dL Normal 8.6 - 10.6 [facility] Comment on above: Performed By: #### R ENAL #### [facility] [address] [place] [address] Chloride [Moles/Vol] 100 mmol/L Normal 98 - 107 [facility] Comment on above: Performed By: #### R ENAL #### [facility] [address] [place] [address] Creatinine [Mass/Vol] 0.51 mg/dL Normal 0.50 - 1.05 [facility] Comment on above: Performed By: #### R ENAL #### [facility] [address] [place] [address] eGFR FEMALE >90 Normal >90 [facility] Comment on above: Result Comment: CALC ULATIONS OF ESTIMATED GFR ARE PERFORMED USING THE 2020 CKD-EPI STUDY REFIT EQUATION WITHOUT THE RACE VARIABLE FOR THE IDMS-TRACEABLE CREATININE METHODS. https://jasn.asnjournals.org/content//ASN.590 2358110 Performed By: #### R ENAL #### [facility] [address] [place] [address] Glucose [Mass/Vol] 123 mg/dL High 74 - 99 [facility] Comment on above: Performed By: #### R ENAL #### [facility] [address] [place] [address] HCO3 (Bld) [Moles/Vol] 28 mmol/L Normal 21 - 32 [facility] Comment on above: Performed By: #### R ENAL #### [facility] [address] [place] [address] Phosphate [Mass/Vol] 2.8 mg/dL Normal 2.5 - 4.9 [facility] Comment on above: Result Comment: The performance characteristics of phosphorus testing in heparinized plasma have been validated by the individual laboratory site where testing is performed. Testing on heparinized plasma is not approved by the FDA; however, such approval is not necessary. Performed By: #### R ENAL #### [facility] [address] [place] [address] Potassium [Moles/Vol] 4.3 mmol/L Normal 3.5 - 5.3 [facility] Comment on above: Performed By: #### R ENAL #### [facility] [address] [place] [address] Sodium [Moles/Vol] 137 mmol/L Normal 136 - 145 [facility] Comment on above: Performed By: #### R ENAL #### [facility] [address] [place] [address] Urea nitrogen [Mass/Vol] 8 mg/dL Normal 6 - 23 [facility] Comment on above: Performed By: #### R ENAL #### [facility] [address] [place] [address] Renal Function Panelon 09-19 Albumin BCP dye [Mass/Vol] 3.4 g/dL 3.4 - 5.0 MG-Gastroen terology-[facility] 6 [facility] Work Phone: Anion gap [Moles/Vol] 18 mmol/L [...] RACE VARIABLE FOR THE IDMS-TRACEABLE CREATININE METHODS.https://jasn.asnjournals.org/content/ /ASN.5701116314 ANTIBODY IDENT.on 09-18-2021 ANTIBODY IDENT. Anti-E Normal [facility] Comment on above: Performed By: #### A FPA3 #### [facility] [address] [place] [address] ARTERIAL FULL PANELon 2021 Anion gap [Moles/Vol] 5 mmol/L Low 10 - 25 [facility] Comment on above: Performed By: #### A FPA3 ####[id number] [place] [address] BASE EXCESS-BLOOD 2.8 mmol/L Normal -2.0 - 3.0 [facility] Comment on above: Performed By: #### A FPA3 ####[id number] [place] [address] BICARB, CALCULATED 27.2 mmol/L High 22.0 - 26.0 [facility] Comment on above: Performed By: #### A FPA3 ####[id number] [place] [address] CALCIUM,IONIZED 1.20 mmol/L Normal 1.10 - 1.33 [facility] Comment on above: Performed By: #### A FPA3 ####[id number] [place] [address] Chloride [Moles/Vol] 106 mmol/L Normal 98 - 107 [facility] Comment on above: Performed By: #### A FPA3 ####[id number] [place] [address] Glucose [Mass/Vol] 149 mg/dL High 74 - 99 [facility] Comment on above: Performed By: #### A FPA3 ####[id number] [place] [address] Hematocrit (Bld) [Volume fraction] 38.0 % Normal 36.0 - 46.0 [facility] Comment on above: Performed By: #### A FPA3 ####[id number] [place] [address] HGB,CALCULATED 12.9 g/dL Normal 12.0 - 16.0 [facility] Comment on above: Performed By: #### A FPA3 ####[id number] [place] [address] Lactate [Moles/Vol] 0.9 mmol/L Normal 0.4 - 2.0 [facility] Comment on above: Performed By: #### A FPA3 ####[id number] [place] [address] Oxygen (Bld) [Partial pressure] 219 mm[Hg] High 85 - 95 [facility] Comment on above: Performed By: #### A FPA3 ####[id number] [place] [address] PATIENT TEMPERATURE 37.0 degrees C Normal [facility] Comment on above: Result Comment: NOTE : PATIENT RESULTS ARE NOT CORRECTED FOR TEMPERATURE. Performed By: #### A FPA3 ####[id number] [place] [address] PCO2 40 mmHg Normal 38 - 42 [facility] Comment on above: Performed By: #### A FPA3 ####[id number] [place] [address] pH (Bld) 7.44 [pH] High 7.38 - 7.42 [facility] Comment on above: Performed By: #### A FPA3 ####[id number] [place] [address] Potassium [Moles/Vol] 4.4 mmol/L Normal 3.5 - 5.3 [facility] Comment on above: Performed By: #### A FPA3 ####[id number] [place] [address] SO2 100 % Normal 94 - 100 [facility] Comment on above: Performed By: #### A FPA3 ####[id number] [place] [address] Sodium [Moles/Vol] 134 mmol/L Low 136 - 145 [facility] Comment on above: Performed By: #### A FPA3 ####[id number] [place] [address] Anion gap [Moles/Vol] 7 mmol/L Low 10 - 25 [facility] Comment on above: Performed By: #### A FPA3 #### [facility] [address] [place] [address] BASE EXCESS-BLOOD 1.8 mmol/L Normal -2.0 - 3.0 [facility] Comment on above: Performed By: #### A FPA3 #### [facility] [address] [place] [address] BICARB, CALCULATED 25.7 mmol/L Normal 22.0 - 26.0 [facility] Comment on above: Performed By: #### A FPA3 #### [facility] [address] [place] [address] CALCIUM,IONIZED 1.20 mmol/L Normal 1.10 - 1.33 [facility] Comment on above: Performed By: #### A FPA3 #### [facility] [address] [place] [address] Chloride [Moles/Vol] 105 mmol/L Normal 98 - 107 [facility] Comment on above: Performed By: #### A FPA3 #### [facility] [address] [place] [address] Glucose [Mass/Vol] 174 mg/dL High 74 - 99 [facility] Comment on above: Performed By: #### A FPA3 #### [facility] [address] [place] [address] Hematocrit (Bld) [Volume fraction] 37.0 % Normal 36.0 - 46.0 [facility] Comment on above: Performed By: #### A FPA3 #### [facility] [address] [place] [address] HGB,CALCULATED 12.6 g/dL Normal 12.0 - 16.0 [facility] Comment on above: Performed By: #### A FPA3 #### [facility] [address] [place] [address] Lactate [Moles/Vol] 1.1 mmol/L Normal 0.4 - 2.0 [facility] Comment on above: Performed By: #### A FPA3 #### [facility] [address] [place] [address] Oxygen (Bld) [Partial pressure] 224 mm[Hg] High 85 - 95 [facility] Comment on above: Performed By: #### A FPA3 #### [facility] [address] [place] [address] PATIENT TEMPERATURE 37.0 degrees C Normal [facility] Comment on above: Result Comment: NOTE : PATIENT RESULTS ARE NOT CORRECTED FOR TEMPERATURE. Performed By: #### A FPA3 #### [facility] [address] [place] [address] PCO2 37 mmHg Low 38 - 42 [facility] Comment on above: Performed By: #### A FPA3 #### [facility] [address] [place] [address] pH (Bld) 7.45 [pH] High 7.38 - 7.42 [facility] Comment on above: Performed By: #### A FPA3 #### [facility] [address] [place] [address] Potassium [Moles/Vol] 3.9 mmol/L Normal 3.5 - 5.3 [facility] Comment on above: Performed By: #### A FPA3 #### [facility] [address] [place] [address] SO2 100 % Normal 94 - 100 [facility] Comment on above: Performed By: #### A FPA3 #### [facility] [address] [place] [address] Sodium [Moles/Vol] 134 mmol/L Low 136 - 145 [facility] Comment on above: Performed By: #### A FPA3 #### [facility] [address] [place] [address] CT L Spine without Contrasto n 09-18-2021 [...] connectors. Objective Data: Objective Information: T PRBPSpO2 Karlg38330434/4391% Date/Time09/18 6: 5: 5: 5: 5:56 Range(37C [...] Recent Arterial Blood Gas Results 09/18/2021 11:48 fC7229 24 h range: ( 219 - 224 ) pH7.44 24 h range: ( 7.44 - 7.45 ) eIK721 24 h range: ( 37 - 40 ) IF5568 24 h range: ( 100 - 100 ) Base Excess2.8 24 h range: ( 1.8 - 2.8 ) Kbpnqmsigjd86.2 24 h range: ( 25.7 - 27.2 ) Assessment and Plan: Code Status: Code StatusFull Code Electronic Signatures: Bryan Mora) (Signed 18-Sep-2021 14:47) Authored: Service, Subjective Data, Objective Data, Assessment and Plan, Note Completion Last Updated: 18-Sep-2021 14:47 by Bryan Mora) Normal [facility] Daily Progress Note-Neurosur jinny 09-18-2021 Daily Progress Note-Neurosurgery Service: Neurosurgery Subjective Data: MORALES LEE is a 46 year old Female who is Hospital Day # 4. Objective Data: Objective Information: T PRBPSpO2 [id number]/4391% Date/Time1/14 6:041/14 5:56114 5:56114 5:561/14 5:56 Range(36.6C [...] Severe ---- Intake and Output ----- Mn/Dy/Year TimeIntakeOut[facility] Sep 17, 2021 10:00 [id number] Sep 17, 2021 2:00 [id number] The Intake and Output Totals for the [...] the note. I personally evaluated the patient [id number] Electronic Signatures: Fidel Maciel (Resident)) (Signed 18-Sep-2021 06:55) Authored: Service, Subjective Data, Objective Data, Assessment and Plan, Note Completion Lex Frederick) (Signed 19-Sep-2021 10:18) Authored: Note Completion Co-Signer: Service, Subjective Data, Objective Data, Assessment and Plan, Note Completion Last Updated: 19-Sep-2021 10:18 by Lex Frederick) Normal [facility] Laboratory - Chemistry and C hemistry [...] dated 10/07/2020. MRI dated 12/11/2020 ACCESSION NUMBER(S): [id number] ORDERING CLINICIAN: ANGELO JUAREZ TECHNIQUE: Thin cut [...] as stated. This study was interpreted at [facility], [place], [place]. Electronically signed by: BOONE LAO MD Normal [facility] No Panel Informationon 09-18 0.0 {/100_WBC} [...] Respiratory Rate15 breath per minute Blood Pressure Askfkdhk34 mm/Hg Blood Pressure Ahynipmqf56 mm/Hg COVID 19 Results in Last 7 [...] 18-Sep-2021 06:59 by Lian Zuleta (SANAZ) Normal [facility] Radiologyon 09-18-2021 XR Chest Single view [...] - 4.9 MG-G astroen terology-[facility] 6 [facility] Work Phone: Comment on above: [...] >90 >90 MG-G astroen terology-[facility] 6 [facility] Work Phone: Comment on above: CALCULATIONS OF IVY MATED GFR ARE PERFORMED USING THE 2020 CKD-EPI STUDY REFIT EQUATION WITHOUT THE RACE VARIABLE FOR THE IDMS-TRACEABLE CREATININE METHODS.https://jasn.asnjournals.org/content/early /ASN.4246385581 TH CHEST; 1 VIEWon 2 TH CHEST; 1 VIEW Patient Name: MORALES LEE STUDY: CHEST; 1 VIEW; 09/18/2021 2:38 pm INDICATION: s/p central line placement (right IJ double lumen) . COMPARISON: Radiograph dated 09/15/2021 ACCESSION NUMBER(S): [id number] ORDERING CLINICIAN: BRYAN MORA FINDINGS: Right IJ [...] Electronically signed by: LORELEI JOHNSTON MD Normal [facility] VENOUS FULL PANELon 09-18-19 22 Anion gap [Moles/Vol] 6 mmol/L Low 10 - 25 [facility] Comment on above: Performed By: #### V FPA3 #### [facility] [address] [place] [address] BASE EXCESS-BLOOD 3.9 mmol/L High -2.0 - 3.0 [facility] Comment on above: Performed By: #### V FPA3 #### [facility] [address] [place] [address] BICARB, CALCULATED 28.5 mmol/L High 22.0 - 26.0 [facility] Comment on above: Performed By: #### V FPA3 #### [facility] [address] [place] [address] CALCIUM,IONIZED 1.17 mmol/L Normal 1.10 - 1.33 [facility] Comment on above: Performed By: #### V FPA3 #### [facility] [address] [place] [address] Chloride [Moles/Vol] 103 mmol/L Normal 98 - 107 [facility] Comment on above: Performed By: #### V FPA3 #### [facility] [address] [place] [address] Glucose [Mass/Vol] 188 mg/dL High 74 - 99 [facility] Comment on above: Performed By: #### V FPA3 #### [facility] [address] [place] [address] Hematocrit (Bld) [Volume fraction] 39.0 % Normal 36.0 - 46.0 [facility] Comment on above: Performed By: #### V FPA3 #### [facility] [address] [place] [address] HGB,CALCULATED 13.3 g/dL Normal 12.0 - 16.0 [facility] Comment on above: Performed By: #### V FPA3 #### [facility] [address] [place] [address] Lactate [Moles/Vol] 1.2 mmol/L Normal 0.4 - 2.0 [facility] Comment on above: Performed By: #### V FPA3 #### [facility] [address] [place] [address] Oxygen (Bld) [Partial pressure] 56 mm[Hg] High 35 - 45 [facility] Comment on above: Performed By: #### V FPA3 #### [facility] [address] [place] [address] PATIENT TEMPERATURE 37.0 degrees C Normal [facility] Comment on above: Result Comment: NOTE : PATIENT RESULTS ARE NOT CORRECTED FOR TEMPERATURE. Performed By: #### V FPA3 #### [facility] [address] [place] [address] PCO2 42 mmHg Normal 41 - 51 [facility] Comment on above: Performed By: #### V FPA3 #### [facility] [address] [place] [address] pH (Bld) 7.44 [pH] High 7.33 - 7.43 [facility] Comment on above: Performed By: #### V FPA3 #### [facility] [address] [place] [address] Potassium [Moles/Vol] 4.1 mmol/L Normal 3.5 - 5.3 [facility] Comment on above: Performed By: #### V FPA3 #### [facility] [address] [place] [address] SO2 91 % High 45 - 75 [facility] Comment on above: Performed By: #### V FPA3 #### [facility] [address] [place] [address] Sodium [Moles/Vol] 133 mmol/L Low 136 - 145 [facility] Comment on above: Performed By: #### V FPA3 #### [facility] [address] [place] [address] CORONAVIRUS 2019, SCREEN ASY MPTOMATICon 09-17-2021 SARS-CoV-2 (COVID-19) RNA ADRIÁN+probe Ql (Unsp spec) Not detected Normal Not Detected [facility] Comment on above: Result Comment: . This test has received FDA Emergency Use Authorization (EUA) and has been verified by [facility] ([facility]). This test is only authorized for the duration of time that circumstances exist to justify the authorization of the emergency use of in vitro diagnostic tests for the detection of SARS-CoV-2 virus and/or diagnosis of COVID-19 infection under section 564(b)(1) of the Act, 21 U.S.C. 360bbb-3(b)(1), unless the authorization is terminated or revoked sooner. [facility] is certified under CLIA-88 as qualified to perform high complexity testing. Testing is performed in the [facility] located at [address] [place] [address]. SARS-CoV-2/Flu/RSV Multiplex Test: Fact sheet for providers: https://www.fda.gov/media/867993/download Fact sheet for patients: https://www.fda.gov/media/517221/download Performed By: #### C OVSC ####[id number] [place] [address] Lab Specimen Source Nasal, Nasopharyngeal Normal [facility] Comment on above: Performed By: #### C OVSC ####[id number] [place] [address] Coronavirus 2019 RNA by PCR, Screening Asymptomticon 09-17-2021 Coronavirus 2019 RNA by PCR, Screening Asymptomtic Not detected Normal See Below [facility]-Gastroen terology-[facility] 6 [facility] Work Phone: Comment on above: SOURCE: Nasal, Nasop haryngealReference Range: Not Detected.This test has received FDA Emergency Use Authorization (EUA) and has been verified by [facility] ([facility]). This test is only authorized for the duration of time that circumstances exist to justify the authorization of the emergency use of in vitro diagnostic tests for the detection of SARS-CoV-2 virus and/or diagnosis of COVID-19 infection under section 564(b)(1) of the Act, 21 U.S.C. 360bbb-3(b)(1), unless the authorization is terminated or revoked sooner. [facility] is certified under CLIA-88 as qualified to perform high complexity testing. Testing is performed in the [facility] located at [address] [place] [address].SARS-CoV-2/Flu/RSV Multiplex Test: Fact sheet for providers: https://www.fda.gov/media/501465/downloadFact sheet for patients: https://www.fda.gov/media/824298/download Covid 19 Resultson 2 SARS-CoV-2 (COVID-19) RNA [...] You may also be contacted by the [facility] to see if any of your [...] or Naproxen (Aleve) can also be used. Hlno-tns-zbjrvar cough and cold medicines can be used according to the instructions on the package. Some zrrj-nec-cowafzp medicines also contain acetaminophen. Make sure you [...] water are not available, use alcohol-based hand motor builder assembler. Avoid touching your eyes, nose, and mouth [...] 24 mariella (more content not included)... 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 Pt is [...] he has been working (cardoza at a [employer]), but she looks forward to his arrival [...] her suboxone. Objective: Objective Information: T PRBPSpO2 Value36.81251017/9095% Date/Time09/17 4: 10: 10:: 10:00 Range(35.7C - 36.6C ) (81 - 89 ) (10 - 23 ) (73 - 117 )/ (43 - 90 ) (91% - 96% ) As of 17-Sep-2021 08:00:00, patient is on 3 L/min of oxygen via nasal cannula. Pain reported at 09/17 8:00: 8 = Severe ---- Intake and Output ----- Mn/Dy/Year TimeIntakeOutputNet Sep 17, 2021 6:00 [id number] Sep 16, 2021 2:00 [id number] The Intake and Output Totals for the last 24 hours are: IntakeOutputNet [id number] Mental Status Exam: General: Awake, lying in [...] a Da (more content not included)... Normal [facility] Daily Progress Note-Neurosur jinny 09-17-2021 Daily Progress Note-Neurosurgery Service: Neurosurgery Subjective Data: MORALES LEE is a 46 year old Female who is Hospital Day # 3. Objective Data: Objective Information: T PRBPSpO2 Value35.3563763/4393% Date/Time09/16 18:541/12 18:5409/16 18:5409/16 18:5409/16 18:54 Range(35.7C - 36.4C ) (81 - 91 ) (15 - 24 ) (87 - 118 )/ (43 - 84 ) (91% - 96% ) As of 16-Sep-2021 18:54:00, patient is on 2 L/min of oxygen via nasal cannula. Pain reported at 09/16 16:34: 10 = Severe ---- Intake and Output ----- Mn/Dy/Year [facility]Out[facility] Sep 16, 2021 2:00 [id number] Physical Exam by System: Neurological: A&Ox3 RUE [...] the note. I personally evaluated the patient [id number] Comments/ Additional Findings I again explained to [...] Updated: 19-Sep-2021 10:16 by Lex Frederick) Normal [facility] HCG,URINEon 09-17-2021 Beta HCG ( test) Ql (U) Negative Normal Negative [facility] Comment on above: Performed By: #### A FPA3 #### [facility] [address] [place] [address] Laboratory - Blood bankon ABO group Nom [...] 09-17-2021 REQUEST-LEUKOREDUCED RED CELLS ORDER RECD Normal [facility] Comment on above: Performed By: #### O MACHINE SHOP HELPER #### [facility] [address] [place] [address] TYPE + SCREENon 09-17-2021 ABO TYPE O Normal [facility] Comment on above: Performed By: #### T +S #### [facility] [address] [place] [address] RH TYPE Positive Normal [facility] Comment on above: Performed By: #### T +S #### [facility] [address] [place] [address] Urine Teston 09-17 HCG ( test) Ql (U) Negative Negative MG-Gastroen terology-[facility] 6 [facility] Work Phone: BNPon 09-16-2021 Natriuretic peptide B (Bld) [Mass/Vol] 37 pg/mL Normal 0 - 99 [facility] Comment on above: Result Comment: . [...] information. Performed By: #### A FPA3 #### [facility] [address] [place], [place] CBC AND DIFFERENTIALon 09-16 % AUTOMATED IMMATURE GRAN 0.5 % Normal 0.0 - 0.9 [facility] Comment on above: Result Comment: Jaleesa ture Granulocyte Count (IG) includes promyelocytes, myelocytes and metamyelocytes but does not include bands. Percent differential counts (%) should be interpreted in the context of the absolute cell counts (cells/L). Performed By: #### C BCDF ####[id number] [place] [address] Basophils (Bld) [#/Vol] 0.04 10*3/uL Normal 0.00 - 0.10 [facility] Comment on above: Performed By: #### C BCDF ####[id number] [place] [address] Basophils/100 WBC (Bld) 0.5 % Normal 0.0 - 2.0 [facility] Comment on above: Performed By: #### C BCDF ####[id number] [place] [address] Eosinophils (Bld) [#/Vol] 0.26 10*3/uL Normal 0.00 - 0.70 [facility] Comment on above: Performed By: #### C BCDF ####[id number] [place] [address] Eosinophils/100 WBC (Bld) 3.0 % Normal 0.0 - 6.0 [facility] Comment on above: Performed By: #### C BCDF ####[id number] [place] [address] Erythrocyte distribution width (RBC) [Ratio] 13.0 % Normal 11.5 - 14.5 [facility] Comment on above: Performed By: #### C BCDF ####[id number] [place] [address] Hematocrit (Bld) [Volume fraction] 42.7 % Normal 36.0 - 46.0 [facility] Comment on above: Performed By: #### C BCDF ####[id number] [place] [address] Hemoglobin (Bld) [Mass/Vol] 14.1 g/dL Normal 12.0 - 16.0 [facility] Comment on above: Performed By: #### C BCDF ####[id number] [place] [address] Lymphocytes (Bld) [#/Vol] 3.17 10*3/uL Normal 1.20 - 4.80 [facility] Comment on above: Performed By: #### C BCDF ####[id number] [place] [address] Lymphocytes/100 WBC (Bld) 37.2 % Normal 13.0 - 44.0 [facility] Comment on above: Performed By: #### C BCDF ####[id number] [place] [address] MCHC (RBC) [Mass/Vol] 33.0 g/dL Normal 32.0 - 36.0 [facility] Comment on above: Performed By: #### C BCDF ####[id number] [place] [address] MCV (RBC) [Entitic vol] 91 fL Normal 80 - 100 [facility] Comment on above: Performed By: #### C BCDF ####[id number] [place] [address] Monocytes (Bld) [#/Vol] 0.47 10*3/uL Normal 0.10 - 1.00 [facility] Comment on above: Performed By: #### C BCDF ####[id number] [place] [address] Monocytes/100 WBC (Bld) 5.5 % Normal 2.0 - 10.0 [facility] Comment on above: Performed By: #### C BCDF ####[id number] [place] [address] Neutrophils (Bld) [#/Vol] 4.55 10*3/uL Normal 1.20 - 7.70 [facility] Comment on above: Performed By: #### C BCDF ####[id number] [place] [address] Neutrophils/100 WBC (Bld) 53.3 % Normal 40.0 - 80.0 [facility] Comment on above: Performed By: #### C BCDF ####[id number] [place] [address] NUCLEATED RBC 0.0 /100 WBC Normal 0.0-0.0 [facility] Comment on above: Performed By: #### C BCDF ####[id number] [place] [address] Platelets (Bld) [#/Vol] 278 10*3/uL Normal 150 - 450 [facility] Comment on above: Performed By: #### C BCDF ####[id number] [place] [address] RBC 4.70 x10E12/L Normal 4.00 - 5.20 [facility] Comment on above: Performed By: #### C BCDF ####[id number] [place] [address] WBC (Bld) [#/Vol] 8.5 10*3/uL Normal 4.4 - 11.3 [facility] Comment on above: Performed By: #### C BCDF ####[id number] [place] [address] COAGULATION SCREENon 022 aPTT Coag (Bld) [Time] 31 s Normal 26 - 39 [facility] Comment on above: Result Comment: Note new reference range as of 08/04/2021 at 10:00am. Performed By: #### V FPA3 #### [facility] [address] [place] [address] PT Coag (PPP) [Time] 11.6 s Normal 9.8 - 13.4 [facility] Comment on above: Result Comment: Note new reference range as of 08/04/2021 at 10:00am. Performed By: #### V FPA3 #### [facility] [address] [place] [address] PT, INR 1.0 Normal 0.9 - 1.1 [facility] Comment on above: Performed By: #### V FPA3 #### [facility] [address] [place] [address] Clinical Event Note-ADMISSIO N CLARIFICATIONon 09-16-2021 Clinical [...] and monitoring for withdrawal. Provider/Team Contact Info-Pager [phone] Electronic Signatures: Sharmin Guaman (BETTING AGENCY MANAGER-COUNTER INSTALLER) (Signed 16-Sep-2021 12:07) Authored: Clinical Event Note Last Updated: 16-Sep-2021 12:07 by Sharmin Guaman (BETTING AGENCY MANAGER-COUNTER INSTALLER) Normal [facility] Complete Blood Count + Diffe rentialon 09-16-2021 Basophils/100 WBC (Bld) 0.5 % 0.0 - 2.0 M G-Gastroen terology-[facility] 6 [facility] Work Phone: Erythrocyte distribution width (RBC) [Ratio] 13.0 % See Below MG-Gastroen terology-[facility] 6 [facility] Work Phone: Comment on above: Reference Range: 11. 5 - 14.5 Hematocrit (Bld) [Volume fraction] 42.7 % See Below MG-Gastroen terology-[facility] 6 [facility] Work Phone: Comment on above: Reference Range: 36. 0 - 46.0 Hemoglobin (Bld) [Mass/Vol] 14.1 g/dL See Below MG-Gastroen terology-[facility] 6 I Work Phone: Comment on above: Reference Range: 12. 0 - 16.0 Lymphocytes/100 WBC (Bld) 37.2 % See Below MG-Gastroen terology-[place] [facility] 6 [facility] Work Phone: Comment on above: Reference Range: 13. 0 - 44.0 MCHC (RBC) [Mass/Vol] 33.0 g/dL See Below MG- Gastroen terology-[place] [facility] 6 [facility] Work Phone: Comment on above: Reference Range: 32. 0 - 36.0 MCV (RBC) [Entitic vol] 91 fL 80 - 100 M G-Gastroen terology-[place] 6 [facility] Work Phone: Monocytes/100 WBC (Bld) 5.5 % [...] 0.0 {/100_WBC} 0.0-0.0 MG-Gastroen terology-[facility] 6 [facility] Work Phone: Consult-Painon 09-16-2021 Consult-Pain [...] the note. I personally evaluated the patient [id number] Electronic Signatures: Chidi Lamar (Fellow)) (Signed 16-Sep-2021 [...] From Consult - Psychiatry 15-Sep-2021 20:42 Normal [facility] Consult-Perioperative Medici neon 09-16-2021 Consult-Perioperative Medicine [...] penicillin: Unknown Objective: Objective Information: T PRBPSpO2 Value36.74409617/8491% Date/Time09/16 11:131/12 12:4909/16 12:4909/16 12:4909/16 12:49 Range(36.3C [...] 100 mg (more content not included)... Normal [facility] Cult, Urineon 09-16-2021 Bacteria identified Cx Nom (U) Abnormal MG-Gastroen terology-[facility] 6 [facility] Work Phone: Daily Progress Note-Neurosur jinny 09-16-2021 Daily Progress Note-Neurosurgery Service: Neurosurgery Subjective Data: MORALES LEE is a 46 year old Female who is Hospital Day # 3. Objective Data: Objective Information: T PRBPSpO2 Value36.8255959/6693% Date/Time09/16 1: 4: 4: 4: 4:00 Range(36.3C [...] (suboxone) in AM COWS psych recs SCD's, [facility] Attestation: Note Completion: I am a: [...] the note. I personally evaluated the patient [id number] Comments/ Additional Findings TO OR this Tuesday if medically optimized for T12 - Pelvis fusion and Instrumentation. Pain consult for management regrading Suboxone and pain control in the perioperative period. US LE MRI of the lumbar spine., Lex Frederick MD, [facility], FAANS Director - Minimally Invasive Spine Surgery [facility] Clinical Medical Assistant of Neurological Surgery [facility] [employer] [place], [place] Electronic Signatures: Fidel Maciel (Resident)) (Signed 16-Sep-2021 04:33) Authored: Service, Subjective Data, Objective Data, Assessment and Plan, Note Completion Lex Frederick) (Signed 16-Sep-2021 10:22) Authored: Note Completion Co-Signer: Service, Subjective Data, Objective Data, Assessment and Plan, Note Completion Last Updated: 16-Sep-2021 10:22 by Lex Frederick) Normal [facility] EMR ADDONon 09-16-2021 ADDON CONFIRMATION REQUEST REC'D Normal [facility] Comment on above: Performed By: [...] above: . <100 pg/mL - Heart failure -259 pg/mL - Intermediate probability of acute heart. [...] [Mass/Vol] 3.5 g/dL Normal 3.4 - 5.0 [facility] Comment on above: Performed By: #### R ENAL #### [facility] [address] [place] [address] Anion gap [Moles/Vol] 14 mmol/L Normal 10 - 20 [facility] Comment on above: Performed By: #### R ENAL #### [place] [address] [place] [address] Calcium [Mass/Vol] 8.9 mg/dL Normal 8.6 - 10.6 [facility] Comment on above: Performed By: #### R ENAL #### [facility] [address] [place] [address] Chloride [Moles/Vol] 101 mmol/L Normal 98 - 107 [facility] Comment on above: Performed By: #### R ENAL #### [facility] [address] [place] [address] Creatinine [Mass/Vol] 0.63 mg/dL Normal 0.50 - 1.05 [facility] Comment on above: Performed By: #### R ENAL #### [facility] [address] [place] [address] eGFR FEMALE >90 Normal >90 [facility] Comment on above: Result Comment: CALC ULATIONS OF ESTIMATED GFR ARE PERFORMED USING THE 2020 CKD-EPI STUDY REFIT EQUATION WITHOUT THE RACE VARIABLE FOR THE IDMS-TRACEABLE CREATININE METHODS. https://jasn.asnjournals.org/content//ASN.657 6421138 Performed By: #### R ENAL #### [facility] [address] [place] [address] Glucose [Mass/Vol] 88 mg/dL Normal 74 - 99 [facility] Comment on above: Performed By: #### R ENAL #### [facility] [address] [place] [address] HCO3 (Bld) [Moles/Vol] 29 mmol/L Normal 21 - 32 [facility] Comment on above: Performed By: #### R ENAL #### [facility] [address] [place] [address] Phosphate [Mass/Vol] 3.4 mg/dL Normal 2.5 - 4.9 [facility] Comment on above: Result Comment: The performance characteristics of phosphorus testing in heparinized plasma have been validated by the individual laboratory site where testing is performed. Testing on heparinized plasma is not approved by the FDA; however, such approval is not necessary. Performed By: #### R ENAL #### [facility] [address] [place] [address] Potassium [Moles/Vol] 3.7 mmol/L Normal 3.5 - 5.3 [facility] Comment on above: Performed By: #### R ENAL #### [facility] [address] [place] [address] Sodium [Moles/Vol] 140 mmol/L Normal 136 - 145 [facility] Comment on above: Performed By: #### R ENAL #### [facility] [address] [place] [address] Urea nitrogen [Mass/Vol] 10 mg/dL Normal 6 - 23 [facility] Comment on above: Performed By: #### R ENAL #### [facility] [address] [place] [address] Renal Function Panelon 09-16 Albumin BCP dye [...] - 5.3 [facility]- Gastroen terology-[place] [facility] 6 [facility] Work Phone: Sodium [Moles/Vol] 140 mmol/L 136 - 145 MG-Gas troen terology-[place] 6 I Work Phone: Urea nitrogen [Mass/Vol] 10 mg/dL 6 - 23 [facility]Gastroen [facility]ology-[place] 6 I Work Phone: Renal Function Panel >90 >90 MG-G astroen terology-[place] 6 [facility] Work Phone: Comment on above: CALCULATIONS OF IVY MATED GFR ARE PERFORMED USING THE 2020 CKD-EPI STUDY REFIT EQUATION WITHOUT THE RACE VARIABLE FOR THE IDMS-TRACEABLE CREATININE METHODS.https://jasn.asnjournals.org/content/ /ASN.5146180724 [facility] 09-16-2021 BACTERIA 2+ /HPF Abnormal [facility] Comment on above: Performed By: #### U AMIC ####[id number] [place] [address] Mucus Ql (Urine sed) 1+ /LPF Normal [facility] Comment on above: Performed By: #### U AMIC ####[id number] [place] [address] RBC 3 /HPF Normal 0-5 [facility] Comment on above: Performed By: #### U AMIC ####[id number] [place] [address] SQUAMOUS EPITH. CELLS 2 /HPF Normal [facility] Comment on above: Performed By: #### U AMIC ####[id number] [place] [address] WBC 115 /HPF Abnormal 0-5 [facility] Comment on above: Performed By: #### U AMIC ####[id number] [place] [address] URINALYSISon 09-16-2021 Appearance (U) HAZY Normal CLEAR [facility] Comment on above: Performed By: #### U A ####[id number] [place] [address] Bilirubin Ql (U) Negative Normal NEGATIVE [facility] Comment on above: Performed By: #### U A ####[id number] [place] [address] Color (U) YELLOW Normal STRAW,YELL OW [facility] Comment on above: Performed By: #### U A ####[id number] [place] [address] Glucose Ql (U) Negative Normal NEGATIVE [facility] Comment on above: Performed By: #### U A ####[id number] [place] [address] Hemoglobin Ql (U) Negative Normal NEGATIVE [facility] Comment on above: Performed By: #### U A ####[id number] [place] [address] Ketones Ql (U) Negative Normal NEGATIVE [facility] Comment on above: Performed By: #### U A ####[id number] [place] [address] Leukocyte esterase Test strip Ql (U) LARGE (3+) Abnormal NEGATIVE [facility] Comment on above: Performed By: #### U A ####[id number] [place] [address] Nitrite Ql (U) Positive Abnormal NEGATIVE [facility] Comment on above: Performed By: #### U A ####[id number] [place] [address] pH (U) 6.0 [pH] Normal 5.0 - 8.0 [facility] Comment on above: Performed By: #### U A ####[id number] [place] [address] Protein Ql (U) Negative Normal NEGATIVE [facility] Comment on above: Performed By: #### U A ####[id number] [place] [address] Specific gravity (U) [Rel density] 1.011 Normal 1.005 - 1.035 [facility] Comment on above: Performed By: #### U A ####[id number] [place] [address] Urobilinogen (U) [Mass/Vol] 2.0 mg/dL High 0.0 - 1.9 [facility] Comment on above: Result Comment: Due [...] positive urobilinogen. Performed By: #### U A ####[id number] [place] [address] URINE CULTURE,BACTERIALon URINE CULTURE,BACTERIAL PATIENT: Fay LEE LOCATION: [facility]#: [id number] : 71 AGE: SEX: F ORDERED BY: [...] DEPENDENT NS=NONSUSCEPTIBLE X=REPORTED IN ERROR ___ Normal [facility] Comment on above: Performed By: #### A FPA3 #### [facility] [place] [address] [place] [address] Urinalysison 09-16-2021 Color (U) YELLOW See Below MG-Gastroen [employer] 6 [facility] Work Phone: Comment on above: Reference Range: STR AW,YELLOW Glucose Ql (U) Negative NEGATIVE MG-Gastroe n terology-[place] 6 [facility] Work Phone: Ketones Ql (U) Negative NEGATIVE MG-Gastroe n terology-[facility] 6 [facility] Work Phone: Leukocyte esterase Test strip Ql (U) LARGE (3+) Abnormal NEGATIVE MG-Gastroen terology-[place] 6 I Work Phone: pH (U) 6.0 [pH] 5.0 - 8.0 [facility]-Gastroen terology-[place] [facility] 6 I Work Phone: Protein (U) [Mass/Vol] Negative NEGATIVE MG -Gastroen terology-[place] 6 I Work Phone: RBC (U) [#/Vol] Negative NEGATIVE MG-Gastro en terology-[facility] 6 [facility] Work Phone: Specific gravity (U) [Rel density] 1.011 1 See Below [facility]-Gastroen terology-[facility] 6 [facility] Work Phone: Comment on above: Reference Range: 1.0 05 - 1.035 Urinalysis Positive Abnormal NEGATIVE [facility]astroen terology-[facility] 6 [facility] Work Phone: Urinalysis 2.0 mg/dL above high threshold 0.0 - 1.9 [facility]Gastroen terology-[facility] 6 [facility] Work Phone: Comment on above: Due to [...] Urinalysis Negative NEGATIVE [facility]-Gastroen terology-[place] [facility] 6 [facility] Work Phone: Urinalysis HAZY CLEAR [facility]-Gastroen terology-[place] 6 [facility] Work Phone: Urinalysis, Microscopicon Urinalysis, Microscopic 1+ M G-Gastroen terology-[facility] 6 I Work Phone: Urinalysis, Microscopic 2+ [...] 09-16-2021 V[facility] LAB Venous Duplex Ultrasound DVT [place] [address] and Vascular Lab Report Lower Venous Duplex Ultrasound Patient Name: MORALES LEE Reading Physician: [id number] Arjun Romero MD, RPVI Study Date: 09/16/2021 Referring Physician: [id number] HARRISON RAGSDALE MRN/PID: [id number] PCP: Accession/Order#: [id number] CC Report to: Date of : 1975 Technologist: Isai Burleson RVT Gender: F Technologist 2: Admission Status: Outpatient Location Performed: [facility] Diagnosis/ICD: M79.89-Left leg swelling; M79.89-Right leg swelling Procedure/CPT: 58850 Peripheral venous duplex scan for DVT complete-25484 CONCLUSIONS: Right Lower Venous: No evidence of [...] Spontaneous/Phasic Peroneal Yes None PTV Yes None [id number] Arjun Romero MD, YOLIE Final Normal [facility] Venous Duplex Ultra sound for DVTon 09-16-2021 [facility] Venous Duplex Ultrasound for DVT [facility]-Gastroen terology-[place] 6 I Work Phone: No Panel Informationon 09-15 [email or web address] ?RetrieveTestByDateTime?P [email or web address]=[id number]&Date=1 09-05-2021&Time=19%3a14%3a 23%3a00&TestType=ECG&Site =1&OutputType=PDF&Ext=PDF MG-Gastroen terology-[place] [facility] 6 [...] I Work Phone: [email or web address] ?RetrieveTestByDateTime?P [email or web address]=[id number]&Date=1 09-05-2021&Time=19%3a14%3a 42%3a00&TestType=ECG&Site =1&OutputType=PDF&Ext=PDF MG-Gastroen terology-Rosendo lwell 6 [...] (Advanced Practice Nurse) done by Concetta Shi ([facility]) Admission - Reconciliation: 15-Sep-2021 19:03 by: [...] to Incomplete: 30-Sep-2021 14:18 by: Concetta Shi ([facility]) Admission - Reconciliation: 30-Sep-2021 14:20 by: Concetta Shi ([facility]) Home MedicationsEnteredLast Dose TakenReconciled with current Order Reconciliation Comment/ Additional Information acetaminophen 325 mg oral tablet 2 tab(s) orally every 6 hours, as needed while having post operative [id number] Reviewed and Held Ambien CR 12.5 mg oral tablet, extended release 1 tab(s) oral vzd64-Rlg-4103 Zolpidem Tablet (AMBIEN)DOSE = 10 mg Oral At BedtimeNotes from Pharmacy: Substitution For Zolpidem (Ambien CR) 12.5 mg at Bedtime Ambien CR 12.5 mg oral tablet, extended release continued as the inpatient order Zolpidem Ankle Foot Orthosis for foot syiu02-Nlj-2589 Reviewed and Held betamethasone topical valerate 0.1% topical cream 1 milena topical prn 15-Sep-2021 EnteredInError Reviewed and Held Bilateral Prafos - orthotics to fit, - ICD 10: R26.0, M21.37, M62.81 30-Sep-2021 Reviewed and Held calcium-vitamin D 500 mg-200 intl units (5 mcg) oral tablet 1 tab(s) orally 4 times a zxn41-Vsd-3742 Calcium 500 mg - Vitamin D 200 [...] times a day, as needed for muscle ygroiz51-Efl-2856 Cyclobenzaprine Tablet (FLEXERIL)DOSE = 10 mg Oral [...] topical 1% topical gel 1 milena topical tjq74-Shk-6763 Reviewed and Held DULoxetine 30 mg oral [...] 2 tab(s) orally once a day, As Ukcjmn16-Bla-2155 Reviewed and Held gabapentin 800 mg oral tablet 1 tab(s) oral 3 times a cnh67-Shl-0969 Gabapentin Capsule (NEURONTIN)DOSE = 800 mg Oral 3 Times a Day gabapentin 800 mg oral tablet continued as the inpatient order Gabapentin LEFT AFO -Orthotics to fit, ICD 10: M21.8406-Rdi-0922 Reviewed and Held lidocaine 5% topical film Apply topically to affected area once a day, As Needed near surgical incision for incisional pain 15-Sep-2021 EnteredInError Reviewed and Held lisinopril 20 mg oral tablet 1 tab(s) oral once a hqv49-Viz-2101 Lisinopril Tablet (PRINIVIL, ZESTRIL)DOSE = 20 mg [...] - available over the counter at any xdiforhe29-Nzr-8962 Reviewed and Held RIGHT AFO - Orthotics to fit, - M21.6208-Ogq-1268 Reviewed and Held sennosides-docusate 8.6 mg-50 mg oral tablet 2 tab(s) orally 2 times a day , -Take while using oxycodone for post operative pain to prevent contipation 15-Sep-19 (more content not included)... Normal [facility] Radiologyon 09-15-2021 XR Chest Single view Normal MG-G astroen terology-Rosendo moura 6 [facility] Work Phone: TH CHEST 1 VIEWon 09-15-2021 TH CHEST 1 VIEW Patient Name: MORALES LEE STUDY: CHEST 1 VIEW; 09/15/2021 7:21 pm INDICATION: pre-op . COMPARISON: 12/26/2020. ACCESSION NUMBER(S): [id number] ORDERING CLINICIAN: TOSHA BORJA FINDINGS: CARDIOMEDIASTINAL SILHOUETTE: [...] Electronically signed by: Esther PEDERSON MD Normal [facility] Established Visit (Neurosurg ariana)on 09-08-2021 Established [...] the Neurosurgery Spine Clinic at the [facility]. She is a very pleasant 46-year-old female, [...] obvious instability (more content not included)... Normal [facility] No Panel Informationon 09-08 Normal MG-Neurosur samsonRFI [employer]uel Work Phone: Please click on the link to view the study images Normal MG-Neurosur samsonMiguel Work Phone: SPINE, ENTIRE THORACIC/LUMBA R, INCLUDE [...] and T6-L4 Fusion. COMPARISON: None. ACCESSION NUMBER(S): [id number] ORDERING CLINICIAN: LEX FREDERICK FINDINGS: Fused PA [...] with similar appearance. Electronically signed by: JOSEPH SAALZAR MD Normal [facility] Tobacco Screening.on Fall risk assessment b) One or more fall s in the last year MG-Nuha daviesRFI [employer]Miguel Work Phone: Tobacco use status CPHS a) Yes M [facility] samson[facility] Work Phone: Established Visit (Neurosurg ariana)on 05-05-2021 Established Visit (Neurosurgery) History of Present Illness I just had the pleasure of seeing Mrs. Jesus villarreal in the Neurosurgery Spine Clinic at the [facility]. She is a very pleasant 45 -year-old female, who recently underwent a L1 Vertbrectomy and T6-L4 Fusion with me on 12/26/2020 and is status post 4 Months out from her surgery. Today's visit was a virtual visit with the patient at her home and myself at [facility]. She mentions that overall she [...] in Ms. LEE care. Lex Frederick MD, [facility], FAANS Director - Minimally Invasive Spine Surgery [facility] Clinical Medical Assistant of Neurological Surgery [facility] [employer] [place], [place] Some of this note was completed using [employer] voice recognition technology and sometimes the software [...] May 05 2021 9:18PM EST (Author) Normal [facility] Established Visit (Neurosurg ariana)on 01-08-2021 Established Visit [...] the Neurosurgery Spine Clinic at the [facility]. She is a very pleasant 45 -year-old [...] the further treatment plan. Lex Frederick MD, [facility], FAANS Director - Minimally Invasive Spine Surgery [facility] Food Service Technician of Neurological Surgery [facility] [employer] [place], [place] Some of this note was completed using [employer] voice recognition technology and sometimes the software [...] Unspecified cord compression. COMPARISON: None. ACCESSION NUMBER(S): [id number] ORDERING CLINICIAN: LEX FREDERICK TECHNIQUE: Multiplanar and [...] spine. Electronically signed by: LENNY HAGER MD [facility] NR MRI L-SPINE WOon 12-12-19 21 NR MRI L-SPINE WO Patient Name: MORALES ELE STUDY: MRI L-SPINE WO; ; 12/11/2020 1:38 pm INDICATION: Lumbar Pain Scoliosis, unspecified Low back pain. COMPARISON: CT lumbar spine from 10/07/2020. MRI lumbar spine from 03/11/2016. ACCESSION NUMBER(S): [id number] ORDERING CLINICIAN: LEX FREDERICK TECHNIQUE: MRI of [...] multiple levels. This study was interpreted at [facility]. Electronically signed by: WESLEY CARBAJAL MD [facility] Initial Visit (Neurosurgery) on 10-28-2020 Initial [...] Status:Resulted - Preliminary,Retrospective By Protocol Authorization; Done: [id number] 12:00AM Reason: Unspecified for Xray Spine, entire thoracic/lumbar, include skull, cervical and sacral spine when performed, 2 or 3 view Radiologist to Determine Optimal Study : Y What are the patient's signs and symptoms? : Lumbar Pain SocHx: Current smoker Tobacco Use Screening; Status:Complete; Done: [id number] Patient Discussion/Summary It was a pleasure to see Ms. LEE at the Neurosurgery Spine Clinic at [facility]. Ms. 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 She now has been having severe symptoms [...] evaluated by another spine surgeon at the [facility] who recommended urgent surgery for her [...] even walk (more content not included)... Normal YES.TAPNon 07-10-2019 CNPN Telephone (SPNMMN) ----- MORALES LEE ([id number]) 1975 F Date Time Provider Department 07/10/19 DIXIE TEE [facility] During your visit today, we recorded [...] Order(s):CONSULT TO ORTHOPAEDIC SURGERY [19991006] Order #: [id number]: 1 Prescriptions as of 07/10/2019 Sig: LISINOPRIL [...] on 07/10/19 [facility] CNOVon 07-09-2019 CNOV Office Visit (SPNSMN ) ----- MORALES LEE ([id number]) 1975 F Date Time Provider Department 07/09/19 9:30 AM STEVENSON QUAN SPNSMN During your visit today, we recorded the following information about you: Pulse Respiration Blood pressure Weight 89/minute 18/minute 124/74 95.8 kg Height 1.499 m Stevenson Quan MD 07/09/2019 2:56 PM Signed SPINE SURGERY OUTPATIENT CONSULT SERVICE DATE: 07/09/2019 PCP: No primary care provider on file. REFERRING PROVIDER: Dixie Tee MD [address] [facility] [facility] [address] Consult requested for an opinion regarding the [...] file Gets together: Not on file Attends spiritism service: Not on file Active member of [...] with the patient or the patient?s personal compliance representative. The patient has elected to schedule surgery at this time or intends to call the office with a surgical date. Shared decision making occurred while obtaining informed consent. 1. Imaging: Thoracic CT Without Contrast 2. Encouraged to call the office with any questions or concerns 3. 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] Other Visit Diagnosis:Spinal stenosis of thoracic region [M48.04] Order(s):CT THORACIC SPINE WO IVCON [4798988] Order #: [id number] FUTURE Prescriptions as of 07/09/2019 Sig: LISINOPRIL [...] on 07/09/19 [facility] OBSOLETEon 07-09-2019 OBSOLETE Procedure (EMGMN) ----- MORALES LEE ([id number]) 1975 F Date Time Provider Department 07/09/19 7:45 AM EMG 1 NEUR MAIN EMGMN During your visit today, we recorded the following information about you: Referring Provider: DIXIE TEE [[id number]] Allergies As of Date: 07/09/2019 Noted Allergy [...] upper limb [G56.21] Order(s):EMG(NEURO/NI) [[id number]] Order #: [id number]: 1 Prescriptions as of 07/09/2019 Sig: LISINOPRIL [...] by JHON EASON MD on 07/09/19 Normal [facility] PROGRESSon 07-09-2019 PROGRESS HNO ID: [id number] Author: Stevenson Quan Service: ? Author Type: Physician Type: Progress Notes Filed: 07/09/2019 2:56 PM Note Text: SPINE SURGERY OUTPATIENT CONSULT SERVICE DATE: 07/09/2019 PCP: No primary care provider on file. REFERRING PROVIDER: Dixie Tee MD [address] [facility] [address] Consult requested for an opinion regarding the [...] file Gets together: Not on file Attends spiritism service: Not on file Active member of [...] with the patient or the patient?s personal compliance representative. The patient has elected to [...] 09, 2019 TIME: 10:24 AM PAGER: Normal [facility] OT-XR DEXA BONE DENSITY IMPO RTon 07-06-2019 OT-XR DEXA BONE DENSITY IMPORT Images were obtained outside of [facility] [id number] Normal [facility] CASE MGT INIT [facility] 2018 CASE MGT INIT [facility] HNO ID: [id number] Author: Kimberly (Rn) MERA Dunaway Service: ? Author Type: Registered Nurse Type: Care Mgt Initial Assessment Filed: 06/20/2019 12:25 PM Note Text: CARE MANAGEMENT: ASSESSMENT AND DISCHARGE PLAN SERVICE DATE: 06/20/2019 SERVICE TIME: 12:21 PM PRIMARY CARE PHYSICIAN: No primary care provider on file. Phone: None ADMISSION STATUS: Observation Needs Prior to Discharge: To Be Determined MEDICAL: Patient/Fingerprint Technician Stated Goals: To have reduction in pain To have reduction in symptoms Health Insurance: BLUE CARD PPO Health Issues Impacting Discharge Plan: Chronic neck pain Last Discharge Date: 06/20/19 Is this Within the Past 30 days? No Advance Directive: Current Advance Directive: None [employer] Attempted to Assist with AD Completion: Yes [...] Lee Address: [address] [place] [address] [facility] Mobile Relation: Spouse Supportive: Yes Other [...] 0 I feel financially burdened by my dgh-gz-voziul expenses for my prescription medication: Disagree completely [...] with . Does not utilize any DME, long-term or community resources. Has d/c transportation via . Anticipate transitional care plan of home, no skilled needs identified at this time. TCC will remain available to assist as needed with transition planning. SIGNATURE: Kimberly Dunaway RN PATIENT NAME: Morales Lee DATE: June 20, 2019 TIME: 12:21 PM PAGER/CONTACT #: [phone] Normal [facility] CBCon 06-20-2019 Erythrocyte distribution width (RBC) [Ratio] 12.6 % Normal 11.5-15.0 [facility] Comment on above: Performed By: #### C BC #### [place] [phone] Hematocrit (Bld) [Volume fraction] 48.7 % High 36.0-46.0 [facility] Comment on above: Performed By: #### C BC #### [place] [id number] Hemoglobin (Bld) [Mass/Vol] 16.8 g/dL High 11.5-15.5 [facility] Comment on above: Performed By: #### C BC #### [place] [id number] MCH (RBC) [Entitic mass] 31.1 pG Normal 26.0-34.0 [facility] Comment on above: Performed By: #### C BC #### [place] [phone] MCHC (RBC) [Mass/Vol] 34.5 g/dL Normal 30.5-36.0 [facility] Comment on above: Performed By: #### C BC #### [place] [phone] MCV (RBC) [Entitic vol] 90.0 fL Normal 80.0-100.0 [facility] Comment on above: Performed By: #### C BC #### [place] [phone] Platelet mean volume (Bld) [Entitic vol] 10.6 fL Normal 9.0-12.7 [facility] Comment on above: Performed By: #### C BC #### [place] [id number] [place] [address] Platelets (Bld) [#/Vol] 334 10*3/uL Normal 150-400 [facility] Comment on above: Performed By: #### C BC #### [place] [address] RBC (Bld) [#/Vol] 5.41 10*6/uL High 3.90-5.20 [facility] Comment on above: Performed By: #### C BC #### [place] [address] WBC (Bld) [#/Vol] 10.85 10*3/uL Normal 3.70-11.00 [facility] Comment on above: Performed By: #### C BC #### [place] [address] CONSULTon 06-20-2019 CONSULT HNO ID: [id number] Author: Evelyn Resendez Service: Pain Management Author [...] including suboxone - from [facility]. Of note, pt has followed once [...] me to leave. She is now leaving [place]. 3. Will sign off _ SUBJECTIVE CHIEF [...] activity was identified. 06/20/2019 by Evelyn Resendez APRN.COUNTER INSTALLER PAST MEDICAL HISTORY Diagnosis Date - Degenerative [...] file Gets together: Not on file Attends spiritism service: Not on file Active member of [...] 20, 2019 TIME: 8:24 AM PAGER/CONTACT #: [phone] (M-F 8-5) [facility] CT BRAIN WO IVCONon 06-20-[address] BRAIN WO IVCON * * *Final Report* * * DATE OF EXAM: Jun 20 2019 1:31AM [facility] 0504 - CT BRAIN [...] No large cortical infarct or acute hemorrhage. Orchid Worker: ADITYA Transcribe Date/Time: Jun 20 2019 1:33A Dictated by : DAVONTE MOY MD This examination was interpreted and the report reviewed and electronically signed by: DAVONTE MOY MD on Jun 20 2019 1:35AM EST [id number] [facility] ECG COMPLETEon 06-20-2019 ECG COMPLETE NAME : MORALES LEE PID : [id number] : 1975 Gender : Female Race : ORD : [id number] Procedure Date : Jun 19 2019 23:57:03 Edit Date : Jun 20 2019 07:51:18 Diagnosis:Sinus rhythm Normal ECG no STEMI 1200a Confirmed by MD ARREDONDO LISA ([id number]), associate editor FOREST WALTON ([id number]) on 06/20/2019 7:51:18 AM Ventricular Rate : 85 BPM Atrial Rate : 85 BPM P-R Interval : 137 ms QRS Duration : 91 ms Q-T Interval : 365 ms QTC Calculation(Bazett) : 434 ms P Tomah : 51 degrees R Tomah : -13 degrees T Tomah : 61 degrees Test Reason : Chest Pain Location : 302 : ED AVED-1 Overread By : MD ARREDONDO LISA Edited By : FOREST WALTON Referred By : , Acquired by : [id number], [facility] ED NOTEon 06-20-2019 ED NOTE HNO ID: [id number] Author: Yuki Mckenzie) MERA Cruz Service: ? Author Type: Registered Nurse Type: ED Notes Filed: 06/20/2019 1:40 AM Note Text: Patient got CT, it is still pending and Jessie MESA said ok to transfer to [facility] with out results pending. Patient agreeing and understanding of transfer. updated on POC and transfer via telephone. DM here to take patient at this time. Pain is not improved at time of transfer. [facility] ED NOTE HNO ID: [id number] Author: Yuki Cruz RN Service: ? Author Type: Registered Nurse Type: ED Notes Filed: 06/20/2019 1:15 AM Note Text: Clean catch urine specimen obtained and sent. [facility] ED NOTE HNO ID: [id number] Author: Yuki Cruz RN Service: ? Author [...] are unable to proscribe that in ED. Heiid at bed side explaining the POC and process at this time with getting transferred to another facility. [facility] ED NOTE HNO ID: [id number] Author: Yuki Mckenzie) MERA Cruz Service: ? Author Type: Registered Nurse Type: ED Notes Filed: 06/20/2019 3:28 AM Note Text: Patient stated Valium did not help. She continues to be in pain and upset. She wanted to speak with someone in charge and update on POC. Normal [facility] HISTORY PHYSICALon 9 HISTORY PHYSICAL HNO ID: [id number] Author: Talita Wesley RN Service: General Internal [...] tightness that is constant. Notices a decreased sales advisor strength and weakness in left hand. She [...] pressure, palpitations, leg swelling. Denies hx of [place]. GI: Denies nausea, vomiting, diarrhea, abdominal pain, [...] rotation 40/80% Decreased left C5-C7 sensation. Left sales advisor strength 2/5. Right sales advisor strength 5/5. UE DTR intact and equal. [...] tightness into left arm, weak left hand sales advisor strength, and worsening severity of numbness/tingling -Afebrile [...] Needs confirmed with patient pharmacy. Patient uses [facility] in [place], [place]. Patient provided #[phone]. Will call in am to confirm dose. Nicotine Abuse Assessment AND Plan: Smokes 1 1/2 PPD for 20 years. Smoking cessation advised. Nicotine patch ordered. Medication and Non-Pharmacologic VTE Prophylaxis/Anticoagulant s VTE Prophylaxis: VTE prophylaxis appropriate SIGNATURE: Talita Wesley APRN.CNP PATIENT NAME: Morales Lee DATE: June 20, 2019 TIME: 2:58 AM PAGER/CONTACT #: U # [phone] [facility] NURSING PROGon 06-20-2019 NURSING PROG HNO ID: [id number] Author: Autsyn (Rn) MERA Berumen Service: Nursing Author Type: Registered Nurse Type: Nursing Progress Note Filed: 06/20/2019 3:10 PM Note Text: Nursing Progress Note Patient Name: Morales Lee Patient Location: [id number]/[id number] -02 Daily Note:06/20/2019 -pt is upset regarding [...] note was completed by: AUSTYN BERUMEN RN [facility] NURSING PROG HNO ID: [id number] Author: Austyn Mckenzie) MERA Berumen Service: Nursing Author Type: Registered Nurse Type: Nursing Progress Note Filed: 06/20/2019 8:10 AM Note Text: Nursing Progress Note Patient Name: Morales Lee Patient Location: [id number] -02 Daily Note:06/20/2019 -assumed care of patient, pt is requesting her suboxone. We have to call to verify dosage. -MERA Acosta called pharmacy provided by night [address] [facility] and the pharmacy does not open until 9am. We will call back to verify dose later. -Dr. Kwon called to speak with this RN, he will be in to see the patient later today. This note was completed by: AUSTYN BERUMEN RN [facility] NURSING PROG HNO ID: [id number] Author: Guadalupe Herbert RN Service: ? Author Type: Registered Nurse Type: Nursing Progress Note Filed: 06/20/2019 4:33 AM Note Text: Nursing Progress Note Patient Name: Morales Lee Patient Location: [id number] -02 Daily Note:AANDO x 3. C/O left [...] note was completed by: Guadalupe Herbert RN [facility] PROGRESSon 06-20-2019 PROGRESS HNO ID: [id number] Author: Sedrick Martin Service: General Internal Medicine [...] rales. Cor:RSR, no murmurs. 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 DATA: Diagnostic tests [...] VTE Prophylaxis/Anticoagulant s 06/20/19399 pneumatic compression stockings (mo,nd) 06/20/19399 activity - mobilize patient ([place], [place]) VTE Prophylaxis: appropriate SIGNATURE: Sedrick Martin MD PATIENT NAME: Morales Lee DATE: June 20, 2019 TIME: 10:41 AM PAGER: [facility] PROGRESS HNO ID: [id number] Author: Sedrick Martin Service: General Internal Medicine Author Type: Physician Type: Progress Notes Filed: 06/20/2019 8:25 AM Note Text: As per Pain Management Consult still pending, I was notified by Pain Management to resume the pt.' s home Suboxone dosage until pt. Seen later today. Normal [facility] Troponin Ton 06-20-2019 Troponin T.cardiac [Mass/Vol] ug/L Normal 0.000-0.[address] [place] [address] Comment on above: Performed By: #### T NT #### [place] [address] Troponin T.cardiac [Mass/Vol] ug/L Normal 0.000-0.[address] [place] [address] Comment on above: Performed By: #### T NT #### [place] [id number] Basic Metabolic Panlon 06-19 Anion gap [Moles/Vol] 14 mmol/L Normal 9-18 [facility] Calcium [Mass/Vol] 10.3 mg/dL High 8.5-10.2 [facility] Chloride [Moles/Vol] 96 mmol/L Low 97-105 [facility] CO2 [Moles/Vol] 29 mmol/L Normal 22-30 [facility] Creatinine [Mass/Vol] 0.59 mg/dL Normal 0.58-0.96 [facility] eGFR- Amer. >60 Normal [facility] GFR/1.73 sq M predicted among non-blacks MDRD (S/P/Bld) [Vol rate/Area] mL/min/{1.73_m2} Normal [facility] Comment on above: Result Comment: eGFR [...] GFR. Glucose [Mass/Vol] 114 mg/dL High 74-99 [facility] Comment on above: Result Comment: The [...] 1). Potassium [Moles/Vol] 3.7 mmol/L Normal 3.7-5.1 [facility] Sodium [Moles/Vol] 139 mmol/L Normal 136-144 [facility] Urea nitrogen [Mass/Vol] 7 mg/dL Normal 7-21 [facility] CBC and Differentialon 06-19 Abs Baso 0.09 k/uL Normal <0.11 [facility] Abs Hooker 0.61 k/uL Normal <0.87 [facility] Abs Neut 7.56 k/uL High 1.45-7.50 [facility] Absolute nRBC <0.01 Normal <0.01 [facility] Basophils/100 WBC (Bld) 0.7 % Normal [facility] DTYPE Auto Diff Normal [facility] Eosinophils (Bld) [#/Vol] 0.25 10*3/uL Normal <0.46 [facility] Eosinophils/100 WBC (Bld) 1.9 % Normal [facility] Erythrocyte distribution width (RBC) [Ratio] 12.0 % Normal 11.5-15.0 [facility] Hematocrit (Bld) [Volume fraction] 52.6 % High 36.0-46.0 [facility] Hemoglobin (Bld) [Mass/Vol] 18.0 g/dL High 11.5-15.5 [facility] Lymphocytes (Bld) [#/Vol] 4.67 10*3/uL High 1.00-4.00 [facility] Lymphocytes/100 WBC (Bld) 35.4 % Normal [facility] MCH (RBC) [Entitic mass] 30.0 pG Normal 26.0-34.0 [facility] MCHC (RBC) [Mass/Vol] 34.2 g/dL Normal 30.5-36.0 [facility] MCV (RBC) [Entitic vol] 87.7 fL Normal 80.0-100.0 [facility] Monocytes/100 WBC (Bld) 4.6 % Normal [facility] Neutrophils/100 WBC (Bld) 57.4 % Normal [facility] NRBCs 0.0 /100 WBC Normal 0 [facility] Platelet mean volume (Bld) [Entitic vol] 10.1 fL Normal 9.0-12.7 [facility] Platelets (Bld) [#/Vol] 370 10*3/uL Normal 150-400 [facility] RBC (Bld) [#/Vol] 6.00 10*6/uL High 3.90-5.20 [facility] WBC (Bld) [#/Vol] 13.18 10*3/uL High 3.70-11.00 [facility] ED NOTEon 06-19-2019 ED NOTE HNO ID: [id number] Author: Yuki WilksRn) MERA Cruz Service: ? Author Type: Registered Nurse Type: ED Notes Filed: 06/20/2019 3:27 AM Note Text: Patient has requested valium, she says that she takes it at home. [facility] updated. Normal [facility] ED NOTE HNO ID: [id number] Author: Yuki WilksRn) MERA Cruz Service: ? Author Type: Registered Nurse Type: ED Notes Filed: 06/20/2019 3:27 AM Note Text: Patient is complaining of nausea. She is requesting her saboxon as well and [facility] was updated on request. [facility] [facility] ED [facility] HNO ID: [id number] Author: Yuki WilksRn) MREA Cruz Service: ? Author Type: Registered Nurse Type: ED Notes Filed: 06/19/2019 7:54 PM Note Text: Said that after her surgery in 2016 her left pinky and ring finger are numb but she said lately her other fingers on that hand have been getting numb as well. [facility] ED NOTE HNO ID: [id number] Author: Vanessa WilksRn) MERA Ruiz Service: ? Author Type: Registered Nurse Type: ED Notes Filed: 06/19/2019 6:48 PM Note Text: Patient has chronic neck pain for three years. Saw spine doctor 06/12/2019 for the same had x rays. Denies any new injury. States pain goes into left arm. Arrived via wheelchair [facility] ED PROV NOTEon 06-19-2019 ED PROV NOTE HNO ID: [id number] Author: Tracy Arredondo Service: Emergency Medicine Author [...] light touch over bilateral lower extremities. 3/5 sales advisor, bicep, tricep strength over LUE. Decreased sensation to light touch over left upper extremity in median, radial, and ulnar nerve distribution. 5/5 sales advisor, bicep, tricep strength of R UE. Skin: [...] neurosurgical consult as previous notes from her undercar specialist recommend obtaining EMG and possible further [...] a neurosurgical consult she warrants transfer to [facility] for further management of her condition. We have low suspicion for stroke at this time as pain appears to be radicular in nature and she has had worsening progression of her symptoms with documented notes from spine (Dr. Álvaerz) suggesting this worsening pain and numbness. The COUNTER INSTALLER, Talita, at [facility] recommended we obtain a CT brain and she must rule out any acute intercranial abnormality that may be contributing to the patient's symptoms. Therefore, this study was ordered and will be followed up by the night team especially if there is any acute intracranial abnormality. As long as there is no acute intracranial abnormality she will be transferred to [facility] for further evaluation and management of her condition. Patient voiced understanding was in agreement with the above plan. This patient's case was discussed with Dr. Arredondo who personally evaluated the patient supervised her care. The patient was TRANSFERRED to: [facility] Condition at time of disposition: stable SIGNATURE: NORMA Montgomery (Pa) 06/20/19 0026 Attending Note I have personally performed a face to face assessment of the patient and have reviewed the PA/GRAIN SAMPLER note. My schofield findings include: History is [...] of 5 strength left upper extremities in sales advisor strength as well as biceps and triceps [...] worsening neck pain we will place her [facility] observation for cardiac rule out as well [...] and requested by the observation provider at [facility] as they were concerned about stroke. However I doubt this and did not feel this was necessary however it is currently pending and patient will be transferred to [facility] if this is unremarkable. Signature: Tracy Arredondo DO Date: 06/20/2019 Time: 12:26 AM Tracy Arredondo 06/20/19 0033 Normal [facility] Magnesiumon 06-19-2019 Magnesium [Mass/Vol] 2.0 mg/dL Normal 1.7-2.3 [facility] Troponin Ton 06-19-2019 Troponin T.cardiac [Mass/Vol] ug/L Normal 0.000-0.02 9 [facility] CNOVon 06-12-2019 CNOV Office Visit (SPNMMN ) ----- MORALES LEE ([id number]) 1975 F Date Time Provider Department 06/12/19 [...] file Gets together: Not on file Attends spiritism service: Not on file Active member of [...] [Z98.890] Order(s):PATIENT PLACED ON SPINE CARE PATH [0696690] Order #: [id number]: 1 XR SCOLIOSIS PA STAND/LAT 2V [[id number]] Order #: [id number] FUTURE EMG(NEURO/NI) [[id number]] Order #: [id number]: 1 FUTURE CONSULT TO SPINE SURGERY [[id number]] Order #: [id number]: 1 FUTURE Prescriptions as of 06/12/2019 Sig: [...] on 06/12/19 [facility] PROGRESSon 06-12-2019 PROGRESS HNO ID: [id number] Author: Robert Mittal (Rt) Service: Radiology Author Type: Chemical Blender Type: Progress Notes Filed: 06/12/2019 10:10 AM [...] 10:09 AM [facility] PROGRESS HNO ID: [id number] Author: Dixie Tee Service: ? Author Type: [...] file Gets together: Not on file Attends spiritism service: Not on file Active member of [...] healed incisions. Chest: symmetric expansion Data Review: [facility] records reviewed Care everywhere Lumbar CT [...] June 12, 2019 TIME: 8:12 AM Normal [facility] XR SCOLIOSIS 2V PA STAND/LAT on 06-12-2019 [...] changes and multilevel compression deformities as described. Orchid Worker: PSCB Transcribe Date/Time: Jun 12 2019 4:36P Dictated by : CAROLINA MOJICA MD This examination was interpreted and the report reviewed and electronically signed by: CAROLINA MOJICA MD on Jun 12 2019 4:39PM EST [id number] Normal [facility] PROGRESSon 05-14-2019 PROGRESS HNO ID: [id number] Author: Laury Levin Service: ? Author Type: Physician Screedman Type: Progress Notes Filed: 05/14/2019 1:26 PM [...] to rule out cubital tunnel syndrome. Normal [facility] PROGRESSon 05-09-2019 PROGRESS HNO ID: [id number] Author: Kathia Kelly Service: ? Author Type: ? Type: Progress Notes Filed: 05/14/2019 1:26 PM Note Text: Patient name: Morales Lee Are you being referred by a Center for [facility] Provider or Pain Management Provider at [facility]? No If answer is YES please schedule directly with surgeon, triage does not need to be completed. Is this a self-referral No If not, who is the Referring Provider: Dr. Hendricks/ [facility] MRI/CT/myelogram within 12 months: Yes If No , please refer to medical spine or PCP to complete above imaging, triage does not need to be completed Imaging viewable in Epic: No If not, please provide [phone] to fax in imaging reports for review. [...] will fax imaging report and op notes. [phone] Normal [facility] CT-CT C-SPINE WO CON IMPORTo n 02-13-2019 CT-CT C-SPINE WO CON IMPORT Images were obtained outside of [facility] [id number] Normal [facility] CT-CT L-SPINE WO CON IMPORTo n 02-13-2019 CT-CT L-SPINE WO CON IMPORT Images were obtained outside of [facility] [id number] Normal [facility] Vital Signs Date Time Vital Sign Value Performing Clinician Facility 05-14-2024 09:48-0400 Body height 157.5 [address] [facility] Work Phone: [facility] 05-14-2024 09:48-0400 Body mass index (BMI) [Ratio] 34.75 kg/m2 Genny Orosco [address] [facility] Work Phone: [facility] 05-14-2024 09:48-0400 Body temperature 96.69 [degF] Genny Orosco [address] [facility] Work Phone: [facility] 05-14-2024 09:48-0400 Body weight 86.18 kg Genny Arizak [address] [facility] Work Phone: [facility] 05-14-2024 09:48-0400 Diastolic blood pressure 54 mm[Hg] Genny Barrosopatrick [address] [facility] Work Phone: [facility] 05-14-2024 09:48-0400 Heart rate 72 /min Genny Guidrytrick [address] [facility] Work Phone: [facility] 05-14-2024 09:48-0400 Systolic blood pressure 104 mm[Hg] Genny Guidrytrick [address] [facility] Work Phone: [facility] 06-07-2022 12:48-0400 Diastolic blood pressure 83 mm[Hg] No Pcp Required [facility] 06-07-2022 12:48-0400 Heart rate 67 /min No Pcp Required [facility] 06-07-2022 12:48-0400 Respiratory rate 16 /min No Pcp Required [facility] 06-07-2022 12:48-0400 SaO2% (BldA) [Mass fraction] 96 % No Pcp Required [facility] 06-07-2022 12:48-0400 Systolic blood pressure 148 mm[Hg] No Pcp Required [facility] 01-06-2022 10:51-0400 Blood Pressure Location NATALIA MANNING [facility] 01-06-2022 10:51-0400 Diastolic blood pressure 86 mm[Hg] NATALIA MANNING [facility] 01-06-2022 10:51-0400 Heart rate 86 /min NATALIA MANNING [facility] 01-06-2022 10:51-0400 Respiratory rate 16 /min NATALIA MANNING [facility] 01-06-2022 10:51-0400 Systolic blood pressure 132 mm[Hg] NATALIA MANNING [facility] 09-08-2021 14:15-0500 Body height 149.86 cm No PCP None [facility]-Neurosurgery- Ah uja Work Phone: 09-08-2021 14:15-0500 Body mass index (BMI) [Ratio] 36.96 kg/m2 No PCP None IN-Gmlrpnivmfze-Nf uja Work Phone: 09-08-2021 14:15-0500 Body surface area Derived from formula 1.78 m2 No PCP None QM-Kvcordxooydi-Sq uja Work Phone: 09-08-2021 14:15-0500 Body weight 83.01 kg No PCP None [facility]Neurosurgery- Ah uja Work Phone: 09-08-2021 14:15-0500 Diastolic blood pressure 68 mm[Hg] No PCP None DU-Gtapeefqksfh-Fp uja Work Phone: 09-08-2021 14:15-0500 Heart rate 96 /min No PCP None [facility]Ne[facility]surgery- Ah uja Work Phone: 09-08-2021 14:15-0500 Respiratory rate 16 /min No PCP None [facility]-Neurosurgery -Ah uja Work Phone: 09-08-2021 14:15-0500 Systolic blood pressure 115 mm[Hg] No PCP None XA-Etvfphcyciku-Og uja Work Phone: 09-08-2021 14:15-0500 0 1 No PCP None [facility]-Neurosurgery- Ah uja Work Phone: Comment on above: [facility] 01-01-2021 16:46-0400 Heart rate 111 /min No Pcp Required [facility] 01-01-2021 16:46-0400 SaO2% (BldA) [Mass fraction] 95 % No Pcp Required [facility] 01-01-2021 14:00-0400 Body temperature 96.8 [degF] No Pcp Required [facility] 01-01-2021 14:00-0400 Diastolic blood pressure 77 mm[Hg] No Pcp Required [facility] 01-01-2021 14:00-0400 Respiratory rate 18 /min No Pcp Required [facility] 01-01-2021 14:00-0400 Systolic blood pressure 114 mm[Hg] No Pcp Required [facility] Encounters Encounter Date Encounter Type Care Provider Facility Start: 07-12-2024 End: 07-15-2024 Clinisync Result Encounter Generic External Data Provider [facility] External Department Unsolicited Start: 07-12-2024 End: 07-15-2024 Clinisync Result Encounter Generic External Data Provider [facility] External Department Unsolicited Start: 06-08-2024 End: 06-08-2024 ambulatory Kathrine Patel RN [facility] Start: 05-14-2024 End: 05-14-2024 Bamboo flowsheet Genny Orosco [address] [facility] Work Phone: [facility] Start: 05-14-2024 End: 05-22-2024 Clinisync Result Encounter Genny Arizak [address] [facility] Work Phone: [facility] External Department Unsolicited Start: 05-14-2024 End: 05-22-2024 Clinisync Result Encounter Genny Arizak [address] [facility] Work Phone: [facility] External Department Unsolicited Start: 05-14-2024 End: 05-14-2024 ambulatory GENNY GUIDRYTRICK Not Available Start: 05-14-2024 End: 05-14-2024 Office outpatient visit 15 minutes Genny Orosco [address] [facility] Work Phone: [facility] Comment on [...] 03-27-2024 End: 03-31-2024 Pre-admission assessment LEX FREDERICK [facility] Start: 03-26-2024 End: 04-07-2024 Pre-admission assessment LEX FREDERICK [facility] Start: 02-13-2024 End: 02-13-2024 ambulatory [...] encounter procedure Danya Bingham [facility] Start: 11-22-2022 ambulatory MENDOSA H FAWWAD Facilit y:H1 Start: 11-09-2022 End: 11-09-[address] DEVANTE ELIZONDO . Facility:[facility] Start: 10-15-2022 End: 10-15-2022 ambulatory KYRA SILVA . Facility:[facility]1 Start: 09-24-2022 End: 09-24-2022 Patient encounter procedure Danya Bingham [facility] Start: 09-01-2022 Encounter for preprocedural laboratory examination DANYA BINGHAM . [facility] Start: 08-25-2022 End: 08-25-2022 ambulatory MENDOSA H FAWWAD Facility:H1 Start: 08-24-2022 End: 08-25-2022 ambulatory MENDOSA H FAWWAD Facility:H1 Start: 08-24-2022 End: 08-25-2022 Encounter for preprocedural laboratory examination MENDOSA H FAWWAD Facility:H1 Start: 08-21-2022 ambulatory MENDOSA H FAWWAD Facilit y:H1 Start: 07-16-2022 End: 07-16-2022 Patient encounter procedure Danya Bingham [facility] [place] Start: 06-06-2022 End: 06-07-2022 Emergency department patient visit Yony Aguirre [facility] Adult ED Blue 45 Start: 05-31-2022 End: 05-31-[address] ALEXANDRU SORIA . Facility:H1 Start: 05-19-2022 End: 05-19-2022 Off-Site Danya Bingham [facility] Start: 05-07-2022 End: 05-07-2022 ambulatory SHAIKH [...] 02-04-2022 Off-Site Danya Bingham [facility] Start: 01-11-2022 Chart Update No PCP None [facility] [place] Work Phone: Start: 01-11-2022 End: 01-11-2022 Patient encounter procedure Danya Bingham [facility] Start: 01-07-2022 AUDIT No PCP None MG-Neurosu [facility] Work Phone: Start: 01-06-2022 End: 01-06-2022 Patient encounter procedure NATALIA MANNING [facility] [place] Start: 10-13-2021 AUDIT No PCP None MG-Neurosu [facility] Work Phone: Start: 09-29-2021 AUDIT No PCP None MG-Gastroe nterology-B [facility] Work Phone: Start: 09-15-2021 End: 10-02-2021 Evaluation and management of inpatient Dr. LEX FREDERICK Facility:[facility] Start: 09-09-2021 AUDIT No PCP [facility]: Start: 09-08-2021 Office outpatient vi sit 40 minutes No PCP None NV-Lqgpqfkgifgu-Wpoyz Work Phone: Start: 05-05-2021 Postop follow up vis it related to original px No PCP None AG-Crpimkayfqol-YVOPC Work Phone: Start: 12-26-2020 End: 01-01-2021 Evaluation and management of inpatient Lex Frederick [facility] Kaley [id number] Rm [id number] 01 Preoperative state No PCP None MG-Neuros urgery-[facility] Work Phone: Procedures Date Procedure Procedure Detail Performing Clinician Start: 07-12-2024 Bacteria identified in Urine by Culture Generic External Data Provider Start: 05-18-2024 Drug test prsmv read direct optical obs pr date Genny Arizak [address] [facility] Work Phone: Start: 05-14-2024 COMPLIANCE DRUG ANAL YSIS, UR Genny Orosco [address] [facility] Work Phone: Start: 09-21-[address] EFRAIN FREDERICK Comment on above: Performed By: #### A FPA3 #### [facility] [address] [address] Start: 09-21-[address] EFRAIN FREDERICK Comment on above: Order Comment: CUADRAJacque ESPINO, 09/21/2021 05:08TEST TYPE + SCREEN WAS CANCELLED, 09/21/2021 05:06 NO PHLEB ID ON TUBE. Result Comment: CALL ED MERA ESPINO, 09/21/2021 05:08 Performed By: #### A FPA3 #### [facility] [address] [address] Start: 09-17-[address] EFRAIN FREDERICK Comment on above: Performed By: #### T +S #### [facility] [address] [place] [address] Start: 12-27-2020 End: 12-28-2020 Release Blood Product-Packed [...] Td Vaccines (2 - Td or Tdap) [facility] Start: 06-13-2024 End: 06-13-2024 Patient encounter procedure 06/13/2024 9:20 AM EDT Office Visit [facility] [address] [place] [id number] Lian Greer, BETTING AGENCY MANAGER-COUNTER INSTALLER [address] [place] [address] [facility] Start: 05-14-2024 End: 05-14-2024 Patient encounter procedure 05/14/2024 9:30 AM EDT Office Visit [facility] [address] [place] [address] Genny Orosco, TAWANNA [address] [place] [address] [facility] Start: 05-06-[address] [facility] Start: 10-17-2023 End: 10-17-2023 Patient encounter procedure 10/17/2023 6:30 PM EST Office Visit [facility] [address] [place] [address] Shaikh Obrien MD [address] [place] [id number] [facility] Start: 2023 Administration of varicella zoster vaccine Zoster (Shingles) Vaccine (1 of 2) [facility] Start: 05-06-2023 Influenza vaccination Influenza Vacc ine (#1) [facility] Start: 11-03-2021 POV, Provider: Lex Frederick, Status: Pen, Time: 2:00 PM POV, Provider: Lex Frederick, Status: Pen, Time: 2:00 PM EV-Nnyttfinzkcjslbx-R [facility] Work Phone: Start: 10-07-[address] [facility] RNVISIT, Provider: NURSE VISIT ASHLEY 5TH,MGNEUROSURGERY, Status: Pen, Time: 10:15 AM RP-Xozewpjfhvtmhmlt-H [facility] Work Phone: Start: 09-18-2021 [facility], Provider: Lex Frederick, Status: Pen, Time: 8:00 AM [facility], Provider: Lex Frederick, Status: Pen, Time: 8:00 AM TS-Ztlfnwsfkbde-Niieu Work Phone: Start: 01-08-2021 Patient encounter procedure Neurosurgery Miguel Start: 12-31-2020 End: 01-01-2022 [facility] Comment on above: please place at beds geraldine for drain removal Start: 12-26-2020 End: 12-27-2021 Naloxone Injectable 0.4 mg IntraVenous Push Once ; (NARCAN)DOSE = 0.2 mg IntraVenous Push Once, PRN patient is unarousable, and respiratory rate lessClinician Notes: 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 immediately Start: 2013 Screening for malign ant neoplasm of breast Mammogram [facility] Start: 2003 Screening for malign ant neoplasm of cervix [facility] Start: 1994 Screening for malign ant neoplasm of cervix Pap Smear [facility] Start: 1991 Adult BMI Screening Adult BMI Screen ing [facility] Start: 1985 Depression Screening Depression Scre ening [facility] Start: 1985 Tobacco Screening Tobacco Screening [facility] Start: 1973 Screening for malign ant neoplasm of colon [facility] Bacteria identified in Urine by Culture URINE CULTURE, ROUTINE Lab Routine 07/12/2024 2:30 PM EST [facility] Immunizations Immunization Date Immunization Notes Care Provider Delfino chu 02-22-2020 tetanus toxoid, redu luis diphtheria toxoid, and acellular pertussis vaccine, adsorbed Danya Bingham [facility] 12-05-2018 hepatitis A vaccine, adult dosage Danya Lujacque [facility] Payers Date Payer Category Payer [facility] er [id number] 2012 Unknown 1975 Unknown [id number] 2.16.840.1.216045.3.579.2 .356 1975 Unknown [id number] 2.16.840.1.757303.3.579.2 .356 1973 Unknown [id number] 2.16.840.1.363018.3.579.2 .593 1973 Unknown [id number] 2.16.840.1.097647.3.579.2 .593 1973 Unknown [id number] 2.16.840.1.067339.3.579.2 .593 1973 Unknown [id number] 2.16.840.1.182288.3.579.2 .593 1973 Unknown [id number] 2.16.840.1.074491.3.579.2 .593 1973 Unknown [id number] 2.16.840.1.576226.3.579.2 .593 1973 Unknown [id number] 2.16.840.1.682377.3.579.2 .593 1973 Unknown [id number] 2.16.840.1.908461.3.579.2 .593 1973 Unknown [id number] 2.16.840.1.145156.3.579.2 .593 1973 Unknown [id number] 2.16.840.1.259767.3.579.2 .593 1973 Unknown [id number] 2.16.840.1.975167.3.579.2 .593 1973 Unknown [id number] 2.16.840.1.551655.3.579.2 .593 1973 Unknown [id number] 2.16.840.1.399883.3.579.2 .593 1973 Unknown [id number] 2.16.840.1.315525.3.579.2 .593 1973 Unknown [id number] 2.16.840.1.959809.3.579.2 .593 1973 Unknown [id number] 2.16.840.1.906101.3.579.2 .593 1973 Unknown [id number] 2.16.840.1.898589.3.579.2 .593 1973 Unknown [id number] 2.16.840.1.206122.3.579.2 .1046 1973 Unknown [id number] 2.16.840.1.116197.3.579.2 .727 1973 Unknown [id number] 2.16.840.1.545093.3.579.2 .1259 1973 Unknown [id number] 2.16.840.1.182013.3.579.2 .1259 1973 Unknown [id number] 2.16.840.1.760294.3.579.2 .1259 1959 Unknown [id number] Social History Date Type Detail Facility [facility] Tobacco smoking consumption unknown [facility] Start: 08-01-2023 End: 02-13-2024 History of drug use History of drug use IT-Dtzvjipnlmcq-GXSJ C Work Phone: Start: 01-05-2016 End: 02-13-2024 Tobacco smoking status Smokes tobacco daily (finding) [facility] Comment on above: 1ppd 1ppd Start: 08-08-2023 End: 02-13-2024 Sex Assigned At Female [facility] History of tobacco use [facility]igarette Smoker [facility] Start: 08-08-2023 End: 02-13-2024 Alcohol intake Lifetime non-drinker (finding) [facility] Start: 1975 Sex Assigned At Not on file [facility] Childcare Unknown [facility] History of tobacco use [...] 11-26-2022 Functional Status N/A [facility] 07-16-2022 Functional Status N/A [facility] Functional observable [facility] Mental Status Date Assessment Result Facility 12-29-2020 Cognitive functi ons [id number] [facility] Clinical Notes 12-26-2020 to 06-08-2024 Telephone Encounter - Kathrine Patel RN - 06/08/2024 3:24 PM EDTTelephone Encounter - Kathrine Patel RN - 06/08/2024 3:24 PM EDTTelephone Encounter - Kathrine Patel RN - 06/08/2024 3:24 PM EDT Note Date & Type Note Facility 06-08-2024 Miscellaneous Notes ----- Message from [employer] sent at 06/08/2024 3:14 PM EDT ----- Contract: [facility] Lidoderm Patch from [facility], not sure if can use Contract: [facility] Patient is not a current patient of this office informed that we cannnot give advice without this. Will call her insurance company. No triage done Reason for Disposition Caller has cancelled the call before the first contact Protocols used: No Contact or Duplicate Contact Call-A-AH documented in this encounter [employer] 06-08-2024 Telephone encounter Note ----- Message from [employer] sent at 06/08/2024 3:14 PM EDT ----- Contract: [facility] Lidoderm Patch from [facility], not sure if can use [facility] 06-08-2024 Telephone encounter Note Contract: [facility] Patient is not a current patient of this office informed that we cannnot give advice without this. Will call her insurance company. No triage done [facility] 06-08-2024 Telephone encounter Note Reason for Disposition Caller has cancelled the call before the first contact Protocols used: No Contact or Duplicate Contact Call-A-AH [facility] 05-15-2024 History of Presen t illness Narrative [...] physician appointments and anticipated to need it retirement and lifelong Images from the original note [...] States her daughter in law is an REPEAT CHIEF and helps care for her. When I [...] physician appointments and anticipated to need it retirement and lifelong Psychophysiological insomnia Encounter for medication management Relevant Orders Rapid drug screen, urine Pressure ulcer, buttock Patient is wheelchair bound with limited mobility due to chronic LBP, b/l LE weakness. Has associated fecal and urinary incontinence. Relevant Orders Ambulatory referral to Wound Clinic Rapid drug screen, urine Caroline documented in this encounter [facility] 04-24-2024 Telephone encounter Note Patient would like a refill of her Valium. Was from [facility] but did not transfer to [facility]. [facility] 04-24-2024 Miscellaneous Notes Patient would like a refill of her Valium. Was from [facility] but did not transfer to [facility]. documented in this encounter [facility] 11-26-2022 Hospital Discharg e instructions Patient Education [...] 10/01/2017 Document Revised: 12/14/2019 Document Reviewed: 10/01/2017 [employer] Patient Education 2019 [employer]. Follow Up Care 10/14/2022 11:11:52 With:Danya Bingham MD, URL, URO Address: When: Unknown [facility] 09-23-2022 Hospital Discharg e [...] including vitamins, herbs, eye drops, creams, and aykp-haa-xxhugzd medicines. Any problems you or family members [...] provider tells you to take them. Taking snjl-kxc-bpwwmhm medicines, vitamins, herbs, and supplements. General instructions [...] Document Reviewed: 10/08/2019 Elsevier Patient Education 2019 [employer]. Follow Up Care 08/31/2022 10:49:10 With:Zachery HARKINS, CAROLEE Anderson, URO Address: When: Unknown [facility] 07-16-2022 Hospital Discharg e instructions Patient [...] (electrical nerve stimulation). For women, using a hospital medical biller to prevent urine leaks. This is a [...] right after experiencing incontinence. General instructions Take tcgk-mxr-syacgml and prescription medicines only as told by [...] 09/29/2005 Document Revised: 09/01/2018 Document Reviewed: 12/01/2017 [employer] Patient Education 2020 [employer]. Follow Up Care 06/15/2022 11:30:52 With:Zachery HARKINS, CAROLEE Anderson, URO Address: When: Unknown [facility] 02-04-2022 Hospital Discharg e instructions Patient [...] (electrical nerve stimulation). For women, using a hospital medical biller to prevent urine leaks. This is a [...] right after experiencing incontinence. General instructions Take uxqh-rsj-dhdzghd and prescription medicines only as told by [...] 09/29/2005 Document Revised: 09/01/2018 Document Reviewed: 12/01/2017 [employer] Patient Education 2020 [employer]. 02/04/2022 16:23:10 Calorie Counting for Weight Loss [...] 08/22/2006 Document Revised: 05/11/2019 Document Reviewed: 07/22/2017 [employer] Patient Education 2020 [employer]. Follow Up Care 02/04/2022 13:28:46 With:Danya Bingham MD, URL, URO Address: When: Unknown [facility] 01-11-2022 Evaluation + Plan note [...] and Plan Diagnosis Bowel and bladder incontinence ([id number] R32, Billing Diagnosis, Medical). Incontinence without sensory awareness (MJE77-XR N39.42, Working, Medical). Diagnosis Bowel and bladder incontinence (YUT97-RR R32, Billing Diagnosis, Medical). Incontinence without sensory awareness (TMG70-UR N39.42, Working, Medical). Addendum by Danya Bingham MD on January 11, 2022 10:23 EDT Post procedure diagnosis: Intrinsic sphincter deficiency, acontractile detrusor [facility]05-09-2022 Hospital Discharge instructions Patient Education [...] 01/06/2022 11:41:34 With:Danya Bingham Address: [address] [phone] Business (1) When: Unknown Comments:Call for followup appointment in 2-3 weeks With:Danya Bingham Address:Unknown When: Unknown [facility]05-04-2022 Hospital Discharge instructions Patient Education [...] clinics. Check with your local health department. [facility], where you would pay only what you can afford. To find one near you, check this website: [email or web address] [facility]. These are part of a [...] 09/05/2016 Document Revised: 09/23/2018 Document Reviewed: 04/19/2017 [employer] Patient Education 2020 [employer]. Follow Up Care 11/20/2021 10:16:51 With:NIGEL GREEN, NATALIA Santillan, URL Address: [address] [place] [address]. 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 Instead, bend at knees to bulk picker objects (more content not included)...[facility]01-26-2022 NoteThis report has been cancelled.[facility]01-17-2022 NotePROCEDURE DETAILS Postoperative Diagnosis: lumbar stenosis Surgeon: Dr. Lex Frederick Resident/Fellow/Other Screedman: Chery Awan Procedure: posterior L4-L5 decompression posterior [...] Completion Last Updated: 22-Sep-2021 10:54 by Lex Frederick)[facility]01-17-2022 NoteHistory & Physical Reviewed: /Lactating: Are [...] the note. I personally evaluated the patient [id number] Electronic Signatures: Lex Frederick) (Signed 21-Sep-2021 11:50) Authored: Note Completion Co-Signer: History & Physical Reviewed, ERAS, Consent, Note Completion Jaya Mosquera (Resident)) (Signed 21-Sep-2021 02:51) Authored: History & Physical Reviewed, ERAS, Consent, Note Completion Last Updated: 21-Sep-2021 11:50 by Lex Frederick () References: 1. Data Referenced From MRI Safety Screen v2 19-Sep-2021 19:00[facility]01-15-2022 NoteRehab: Info: Mode of Treatmentoccupational therapy; attempted; OT evaluation initiated with home set-up obtained (1st floor set up/ 0 step entry, lives with , tub shower with chair); Pt with low BP upon arrival 79/54. Second BP reading taken at 71/51. RN notified, further evaluation deferred at this time. OT to reattempt when pt medically appropriate. 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 Exploration of spinal [...] performed and the images transferred to the [employer] system for use in intraoperative image-guided computer-assisted [...] using the torque dri (more content not included)...[facility]01-14-2022 NoteThis report has been cancelled.[facility]01-14-2022 NoteHistory & Physical Reviewed: /Lactating: Are [...] the note. I personally evaluated the patient [id number] Electronic Signatures: Fidel Maciel (Resident)) (Signed 17-Sep-2021 22:49) Authored: History & Physical Reviewed, ERAS, Consent, Note Completion Lex Frederick) (Signed 19-Sep-2021 10:17) Authored: Note Completion Co-Signer: History & Physical Reviewed, ERAS, Consent, Note Completion Last Updated: 19-Sep-2021 10:17 by Lex Frederick) References: 1. Data Referenced From MRI Safety Screen v2 17-Sep-2021 11:28[facility]01-11-2022 NoteReferral Information: Consult requested by (Attending [...] be able to m (more content not included)...[facility]01-11-2022 NoteHistory of Present Illness: /Lactating: Are [...] the note. I personally evaluated the patient [id number] Electronic Signatures: Fidel Maciel (Resident)) (Signed 15-Sep-2021 [...] Plan Last Updated: 16-Sep-2021 10:20 by Lex Frederick)[facility]04-23-2021 History of Present illness Narrative* I just had the pleasure of seeing Mrs. Jesus villarreal in the Neurosurgery Spine Clinic at the [facility]. She is a very pleasant 46-year-old female, [...] Ms. JESUS hollis. * Lex Frederick MD, [facility], [facility] * Director - Minimally Invasive Spine Surgery * [facility] * Clinical Medical Assistant of Neurological Surgery * [employer] [facility] [employer] * [place], [place] * Some of this note was completed using [employer] voice recognition technology and sometimes the software misinterprets words. This may include unintended errors with respect to translation of words, typographical errors or grammar errors which may not have been identified prior to finalization of the chart note. Please take this into account when reading this note. QT-Ddgkuyrrsrvk-Bmiin Work Phone: [phone]) 923-975604-23-2021 Reason for referral (narrative)* Reason for Referral: Patient s/p posterior bilateral L1 transpedicular decompression, posterior T7-T8, T8-T9, T9-T10, T0-T11, T11-T12, T12-L1 hutton hernandez osteotomies, Posterior T5-L4 instrumentation and fusion on 12/26 [facility] Future Appointments Appointment Date:01/07/2022 11:00:00 AM Scheduled Provider: [facility] Appointment Type:Urology CALL PAT FT Appointment Date:01/11/2022 08:00:00 AM Scheduled Provider: Location:[facility] Appointment Type:Urology FT Appointment Date:01/11/2022 09:00:00 AM Scheduled Provider: Location:[facility] Appointment Type:Urology FT [facility] + [facility] + Plan note Future Appointments Appointment Date:04/06/2024 12:00:00 PM Scheduled Provider: Location:.MRI Appointment Type:MRI Spine (FT) Appointment Date:04/06/2024 12:00:00 PM Scheduled Provider: Location:[facility] Appointment Type:Surgery FT Future Scheduled Tests Radiology* MRI Spine Cervical w/o Contrast 04/06/24 * MRI Spine Lumbar w/o Contrast 04/06/24 * MRI Spine Thoracic w/o Contrast 04/06/24 [facility] Evaluation note* Neurological: nogxhfo3wwb 5/5 except hg/io4+ble 5/5incision cdiHead/Neck: Ox3, awake, alertBUE 5 prox, HG/IO4+BLE HF/KE/DF/PF/EHL 5 [facility]* Constitutional: in no acute distressSkin: Well perfusedEyes: OU 3RHead/Neck: atraumatic, normocephal icRespiratory/Thorax: airway intact, good chest expansionCardiovascular: normal rate, regular rhythmGastrointestinal: non-tenderNeurological: NAD, A&Bm8Jcfgxvx Nerves II-XII: PERRL, EOMI, Face symmetric, Facial SILT, Palate/Tongue midline and symmetric, shoulder shrugs symmetric, hearing intact to finger rubs bilaterallyMotor: RUE D5, B5, T5, HG5, IO5LUE D5, B5, T5, HG5, IO5RLE HF 4+, KE4+, PF4-, DF3LLE HF 4+, KE4+, PF3, DF4-Sensation: SILT throughout all extremitiesPsychological: mood appropriate [facility]* Diagnosis Chronic low back pain, unspecified [...] whether sciatica present documented in this encounter [facility] HealthcareHospital course Narrative No data available for this section [facility] Discharge instructions* Activity:activity as tolerated. May [...] Certification:Home Care Services Needed: yesSkilled Disciplines Ordered: RN/EMPLOYMENT TRAINER, PT, OTFace to Face Encounter Completed: yesDate of Encounter: [id number] Necessity for Homecare (based on clinical findings): [...] washing dishes, & loading the dryer or intermediate card tender until cleared by MD. * Wound Care:Inspect [...] - Neurosurgeon:Physician/Dept/Service: NeurosurgeonDr Josephuled Date/Time: 08-Jan-2021 10:40Location: [facility] [address] [place], [place]Phone Number: [phone]: 2 week postop/wound check visit; Bring Insurance Card and Photo ID [facility] No data available for this section [facility] InstructionsNot on filedocumented in this encounter [facility] No data available for this section [facility] reason for referral (narrative) , urinary incontinence, neurogenic bladder, open bladder neck, possible SP tube placement Referred by: Zachery HARKINS, Danya Rhodes [facility] reason for referral (narrative)* Consultation (Routine) - Authorized Specialty Diagnoses / Procedures Referred By Pablo saavedra Referred To Contact Wound Care Diagnoses Pressure injury of skin of buttock, unspecified injury stage, unspecified laterality Procedures MA OFFICE/OUTPATIENT NEW HIGH MDM 60 MINUTES Genny Orosco NP [address] [place] [phone] Pérez Pederson MD [address], [place] [address] Referral ID Status Reason Start Date Expiration Date Visits Requested Visits Authorized [id number] Authorized Specialty Services Required 05/15/2024 11/11/2024 1 [...] section and content) DATE CREATED AUTHOR 06/20/2019 [facility] DATE CREATED AUTHOR AUTHOR'S ORGANIZ ATION 06/20/2019 [facility] DATE CREATED AUTHOR AUTHOR'S ORGANIZ ATION 07/26/2019 [facility] DATE CREATED AUTHOR AUTHOR'S ORGANIZ ATION 12/29/2020 [facility] DATE CREATED AUTHOR AUTHOR'S ORGANIZ ATION 09/16/2021 [facility] DATE CREATED AUTHOR AUTHOR'S ORGANIZ ATION 11/25/2021 [facility] DATE CREATED AUTHOR AUTHOR'S ORGANIZ ATION 12/10/2021 [facility] DATE CREATED AUTHOR AUTHOR'S ORGANIZ ATION 08/06/2022 [facility] DATE CREATED AUTHOR AUTHOR'S ORGANIZ ATION 01/17/2023 [facility] DATE CREATED AUTHOR AUTHOR'S ORGANIZ ATION 06/09/2023 [facility] DATE CREATED AUTHOR AUTHOR'S ORGANIZ ATION 12/29/2023 Carlisle Maricao [facility] DATE CREATED AUTHOR AUTHOR'S ORGANIZ ATION 05/15/2024 [facility] d[facility] Specialists EPIC <item><item> Privacy [...] Care Team (unrecognized sect ion and content) Dope And Fabric Worker Relationship Specialty Start Date End Date Shaikh Obrien MD PCP - General Internal Medicine 08/05/23 Dope And Fabric Worker Relationship Specialty Start Date End Date Shaikh Obrien MD PCP - General Internal Medicine 11/15/22 Dope And Fabric Worker Relationship Specialty Start Date End Date Unallocated, Lobo Juarez MD [address] [place] [address] PCP - General Family Medicine 06/04/24 Genny Orosco NP [address] [place] [phone] Nurse Practitioner Family Medicine 04/12/24 Dope And Fabric Worker Relationship Specialty Start Date End Date Kostas Ching MD [address] [place] [phone] PCP - General Family Medicine 04/12/24 Genny Orosco NP [address] [place] [address] Nurse Practitioner Family Medicine 04/12/24 Dope And Fabric Worker Relationship Specialty Start Date End Date Kostas Ching MD [address] [place] [phone] PCP - General Family Medicine 04/12/24 Genny Orosco NP [address] [place] [phone] Nurse Practitioner Family Medicine 04/12/24 Dope And Fabric Worker Relationship Specialty Start Date End Date Kostas Ching MD [address] [place] [phone] PCP - General Family Medicine 04/12/24 Genny Orosco NP [address] [place] [phone] Nurse Practitioner Family [facility] 04/12/24 Dope And Fabric Worker Relationship Specialty Start Date End Date Kostas Ching MD [address] [place] [phone] PCP - General Family Medicine 04/12/24 Genny Orosco NP [address] [place] [phone] Nurse Practitioner Family Medicine 04/12/24 Reason for [...] BE BASED ON THE PRIMARY CLINICAL RECORDS. [facility]. provides no warranty or guarantee of the accuracy or completeness of information in this document.
[2024-08-26 10:15] VITALS: BMI 36.8
[2024-08-26 10:37] VITALS: BP 111/72; PULSE 88; TEMP 36.8; O2SAT 94
--- NOTE | 2024-08-26 12:27 | PM.HP ---
HPI H&P: HPI History of Present Illness Chief complaint: lump on leg, L LEG CELLULITIS Narrative: 49 y o female who is wheelchair dependent from previous cord compression resulting in b/l LE weakness, urinary and fecal incontinence presented to ED with b/l LE pain,swelling and erythema. Patient reports that she had a small painful red bump on her left inner thigh that she noticed about 2 weeks ago. It progressively became more painful and started to spread and then on Tuesday, she noticed that her whole LLE was involved with erythema, swelling, pain and tenderness. Due to her physical limitations, she struggles with maintaining her hygiene. She has extremely dry skin involving mostly her LE, with skin scaling and flaking. She also has mild RLE erythema, tenderness that is limited to just below her knee. She denies trauma, recent abx use. She denies fever/chills but admits to feeling tired and weak overall. Opioid HPI Opioid Management Most Recent Pain and Opioid Data: Last Pain Scale 8 11/21/23 09:41 11/21/23 Urine Drug Screen Interp Final (.) 05/14/24 09:30 05/14/24 Review of Systems ROS Status of ROS 10 or more systems reviewed and unremarkable except as noted in history and below [facility] Medical History (Updated 08/26/24 @ 12:38 by Shaikh Micah MD) Chronic back pain ?M54.9 - Dorsalgia, unspecified (ICD-10) ?G89.29 - Other chronic pain (ICD-10) Fecal incontinence ?R15.9 - Full incontinence of feces (ICD-10) Urinary incontinence ?R32 - Unspecified urinary incontinence (ICD-10) Wheelchair dependence ?Z99.3 - Dependence on wheelchair (ICD-10) Cord compression myelopathy ?G95.20 - Unspecified cord compression (ICD-10) Opioid use disorder in remission ?F11.91 - Opioid use, unspecified, in remission (ICD-10) Surgical History (Updated 08/26/24 @ 12:29 by Shaikh Micah MD) History of back surgery ?Z98.890 - Other specified postprocedural states (ICD-10) Chronic suprapubic catheter ?Z93.59 - Other cystostomy status (ICD-10) Social History (Updated 08/26/24 @ 12:29 by Shaikh Micah MD) Within the past year, how often did you have a drink containing alcohol: never Score interpretation: A score less than 3 is consistent with normal alcohol consumption. Smoking status: Current every day smoker Non-prescribed substance use: former substance user Highest level of school completed/degree received: GED or equivalent Little interest or pleasure in doing things: nearly every day Feeling down, depressed, or hopeless: nearly every day Meds Home Medications and Allergies Home Medications ?Medication ?Instructions ?Recorded ?Confirmed ?Type buprenorphine 8 mg-naloxone 2 mg 1 film sublingual Q8H 03/01/23 08/26/24 History sublingual film diazepam 5 mg tablet 5 mg PO Q8H PRN anxiety 03/30/23 08/26/24 History gabapentin 800 mg tablet 800 mg PO TID 03/30/23 08/26/24 History tizanidine 4 mg tablet 4 mg PO Q8H PRN muscle spasticity 03/30/23 08/26/24 History nystatin 100,000 unit/gram topical 1 applic topical BID #30 grams 07/15/24 08/26/24 Rx powder Allergies Allergy/AdvReac Type Severity Reaction Status Date / Time codeine Allergy Severe rash Verified 07/15/24 05:16 Penicillins Allergy Severe Anaphylaxis Verified 07/15/24 05:16 quetiapine (From Seroquel) Allergy Severe Seizure Verified 07/15/24 05:16 Exam Constitutional Vital Signs, click to edit/add: Last Vital Signs Temp 98.3 F 08/26/24 10:37 Pulse 88 08/26/24 10:37 Resp 18 08/26/24 10:37 BP 111/72 08/26/24 10:37 Pulse Ox 94 L 08/26/24 10:37 O2 Del Method Room Air 08/26/24 10:37 Documenting provider has reviewed patient's vital signs: yes Common normals: oriented x3 General appearance: cooperative, comfortable and appears older than stated age HENMT Common normals: normocephalic and head/scalp atraumatic Head and scalp: normocephalic and atraumatic Eye Common normals: conjunctivae normal and no scleral icterus Conjunctiva: conjunctiva(e) normal Respiratory Common normals: normal respiratory effort and clear to auscultation bilaterally Effort & inspection: able to speak in complete sentences Auscultation: clear to auscultation bilaterally Cardio Common normals: regular rate, S1 normal heart sound and S2 normal heart sound Rate: regular rate Heart sounds: S1 normal and S2 normal GI Common normals: soft to palpation, non-tender and no hepatosplenomegaly Palpation: soft and no hepatosplenomegaly Other: Suprapubic catheter in place Extremity Other: LLE - erythema, indurated skin, tenderness - c/w cellulitis. Extending all the way from ankle to upper thigh. RLE - erythema, indurated skin and tenderness - c/w cellulitis - just below knee. Chronic dry skin, with skin flakes all over b/l LE. Neuro Common normals: oriented x3 Gait (neuro): unable to assess gait (Wheelchair dependent. ) Other: B/L LE weakness - Chronic Psych Common normals: mental status grossly normal, denies hallucinations, denies homicidal ideation and denies suicidal ideation Results Labs Labs: Short CBC 08/26/24 Range/Units 07:01 WBC 19.2 H (4.0-11.0) 10^3/uL Hgb 13.5 (12.0-16.0) g/dL Hct 41.3 (36.0-48.0) % Plt Count 245 (150-450) 10^3/uL BMP 08/26/24 08:29 Sodium 138 Potassium 3.3 L Chloride 100 Carbon Dioxide 27.2 BUN 13.0 Creatinine 0.72 Glucose 110 H Calcium 9.2 Assessment and Plan Assessment and Plan (1) Cellulitis: Qualifiers: Site of cellulitis: extremity Site of cellulitis of extremity: lower extremity Laterality: unspecified laterality Qualified Code(s): L03.119 - Cellulitis of unspecified part of limb (2) Opioid use disorder in remission: (3) Chronic suprapubic catheter: (4) Leukocytosis: Qualifiers: Leukocytosis type: leukemoid reaction Qualified Code(s): D72.823 - Leukemoid reaction (5) Chronic back pain: Qualifiers: Back pain location: low back pain Back pain laterality: bilateral Sciatica presence: with sciatica Sciatica laterality: bilateral sciatica Qualified Code(s): M54.42 - Lumbago with sciatica, left side; M54.41 - Lumbago with sciatica, right side; G89.29 - Other chronic pain Plan B/l LE cellulitis, quite extensive on LLE. Hemodynamically stable but has leukocytosis of 19K. Started patient on IV vancomycin. Resume patients home medications. US ordered to r/o DVT. Podiatry consulted for their recommendations.
--- OUTSIDE RECORDS SUMMARY | 2024-08-26 12:39 | XMS_ITS | CCD ---
Author Organization [facility] Care Team Providers Care Tractor Mechanic Name Role Phone Required, No Pcp [...] Unavailable VETO ., IVON Attending Unavailable [facility] Primary Care Unavailable PATRICK, DEBORAH Aponte Consulting Unavailable [facility] Primary Care Unavailable REINECK, DR ABHINAV Livingston Admitting Unavailabl e REINECK, DR ABHINAV Livingston Consulting Unavailabl e REINECK, DR ABHINAV Livingston Attending Unavailabl e HAY ., DR LOW Admitting Unavailable [facility] Primary Care Unavailable HAY ., DR LOW Attending Unavailable ZIEBER, DR ENRIQUE Santana Consulting Unavailable HAY ., DR LOW Consulting Unavailable LUE ., DANYA M Admitting Unavailable LUE ., DANYA M Attending Unavailable [facility] Primary Care Unavailable [facility] Primary Care Unavailable LUE ., DANYA M Admitting Unavailable LUE ., DANYA M Consulting Unavailable LUE ., DANYA M Attending Unavailable CANDICE MATTA Consulting Unava ilRACHEL Kirk Consulting Unavailable DIAB ., KYRA Admitting Unavailable [facility] Primary Care Unavailable DIAB ., KYRA Attending Unavailable GRECHNY ., BONITA HULL Consulting [facility]ail[facility] LUE ., DANYA M Admitting Unavailable LUE ., DANYA M Consulting Unavailable LUE ., DANYA Aponte Attending Unavailable PAY ., DR RODRIGUEZ Admitting Unavailable PAY ., DR RODRIGUEZ Consulting Unavailable [facility] Primary Care Unavailable PAY ., DR RODRIGUEZ Attending Unavailable [facility] Primary Care Unavailable REINECK, DR ABHINAV Livingston Admitting Unavailabl e REINECK, DR ABHINAV Livingston Consulting Unavailabl e REINECK, DR ABHINAV Livingston Attending Unavailabl e KORIN STANLEY Consulting Unavailable Otoniel, Dr. Lex De Los Santos Attending Kiana Obrien MD, [facility] Care Provider [phone] [facility] Unavailable Lue, Danya Aponte. Attending Unavailable SHAIKH OBRIEN Attending Unavailable SHAIKH OBRIEN Attending Unavailable GENNY OROSCO Attending Unavailabl jacque Obrien MD, [place] Primary Care Provider [phone] Kwesi STACY, Genny Unavailable Unallocated , [facility] Provider Primary Care Provi marilu Kostas Ching MD Primary Care Provider [phone] Allergies Allergy Classification Reported Allergen(s) Allergy Type Date of Onset Reaction(s) Facility Opioid Agonists (1 source) Codeine Drug Allergy Unknown [facility] Penicillins (antibiotic) (1 source) Penicillin Drug Allergy Unknown [facility] QUEtiapine (1 source) QUEtiapine Drug Allergy Unknown [facility] (20 sources) Codeine; Translations: [Codeine] Drug Allergy 6 Hives, Facial Swelling MG-Neurosurger [facility] Work Phone: (20 sources) Penicillins; Translations: [Penicillins] Allergy to drug (finding) Hives, Unknown -Neurosurger [facility] Work Phone: (16 sources) Promethazine; Translations: [promethazine] Drug Allergy 1 Swelling, Unknown [facility] (1 source) QUEtiapine Drug Allergy Seizures [facility] (2 sources) Codeine Drug Allergy 3 [facility] Repository (3 sources) gabapentin; Translations: [Neurontin] Drug Allergy [facility] Rep[facility] (1 source) Levamisole Drug Allergy [facility] (1 source) Morphine Drug Allergy 0 [facility] (2 sources) Penicillins Drug allergy (disorder) 3 [facility] (1 source) QUEtiapine Drug Allergy 3 [facility] (7 sources) Penicillins Drug Allergy 3 Hives, GI intolerance [facility] (7 sources) QUEtiapine Drug Allergy 3 Unknown [facility] (1 source) Penicillin Drug Allergy 6 Facial Swelling [facility] (1 source) Phenergan Plain Propensity to adverse reactions to drug 6 Swelling, Facial Swelling [facility] Medications Current Medications Medication Drug [...] q12hr, # 2 cap(s), Refills(s) 0, [id number], 156, cm, 07/16/22 10:58:00 EST, Height/Length Dosing, [...] day(s), # 2 tab(s), Refills(s) 0, Pharmacy: [address], 156, cm, 01/06/22 10:53:00 EDT, Height/Length [...] docusate sodium 50 mg / sennosides, [facility] 8.6 mg oral tablet (2 sources) Start: [...] Start: 01-05-2016 take 2 capsules by m [facility] three times daily Neurontin 100 mg Cap 200 mg = 2 cap(s), Oral, TID, Refills(s) 0 Start Date: 01/05/16 Status: Ordered Start: 04-17-2015 take 1 capsule by mo [facility] three times daily gabapentin (NEURONTIN) 300 mg [...] Start: 04-17-2015 take 1 capsule by mo [facility] once daily hydrochlorothiazide (MICROZIDE) 12.5 mg capsule [...] tab(s), Refills(s) 3, [facility]: [id number] [facility] [place], 156, cm, 02/04/22 15:47:00 EDT, Height/Length Dosing, 78, kg, 02/04/22 15:47:00 EDT, Weight Dosing Start Date: 02/25/22 Status: Ordered nystatin 100 unt/mg topical powder (7 sources) Polyene Antifungal Start: 03-07-2023 Nyamyc 665541 UNIT/GM powder Apply 1 application topically in [...] 30 tab(s), Refills(s) 11, [facility]: [facility] #[id number], 156, cm, 07/16/22 10:58:00 EST, Height/Length Dosing, 78, kg, 07/16/22 10:58:00 EST, Weight Dosing Start Date: 10/04/22 Status: Ordered Start: 07-16-2022 take 1 tablet by marlen th once daily oxybutynin 10 mg ER Tab 10 mg = 1 tab(s), Oral, Daily, # 30 tab(s), Refills(s) 11, [facility]: [facility] #[id number], 156, cm, 07/16/22 10:58:00 EST, Height/Length Dosing, 78, kg, 07/16/22 10:58:00 EST, Weight Dosing Start Date: 07/16/22 Status: Ordered Start: 03-10-2022 take 1 tablet by marlen th once daily oxybutynin 10 mg ER Tab 10 mg = 1 tab(s), Oral, Daily, # 30 tab(s), Refills(s) 3, Pharmacy: [address], 156, cm, 02/04/22 15:47:00 EDT, Height/Length [...] 07-Jan-2021 Generic Substitution Allowed polyethylene glycol 3350 79580 mg powder for oral solution (3 sources) [...] Daily, # 30 cap(s), Refills(s) 0, Pharmacy: [address], 156, cm, 01/07/22 13:43:00 EDT, Height/Length [...] # 2 cap(s), Refills(s) 0, [facility]: [facility] #[id number], 156, cm, 11/26/22 8:15:00 EDT, Height/Length Dosing, [...] Discontinued Generic Substitution Allowed polyethylene glycol 3350 257249 mg / potassium chloride 2970 mg / sodium bicarbonate 6740 mg / sodium chloride 5860 mg / sodium sulfate 14008 mg powder for oral solution (8 sources) [...] consultation, please call . ======= Performed at: Walk-in [address] [place] [address] [id number] Forklift Truck Operator: Neli Kearney [facility], Phone: [phone] Specimen Comment: ToxAssure, ToxAssure FLEX or MAT drug testin Specimen Comment: -Technical component - Data analysis performed at Specimen Comment: [facility], [address] [place] [address] Specimen Comment: [phone] Forklift Truck Operator James Barrera MD. [facility] [...] [facility] Outside Recordson 12-28-2023 Outside Records [id number]#[id number] Normal [facility] Physician Orderon 12-14-2023 Physician Order [id number]#1.00TIFF [facility] ED Note-Physicianon 03-14-20 ED Note-Physician [id number]#1.00CD:12 7 Normal [facility] ED Note-Physicianon 01-23-20 ED Note-Physician [id number]#1.00CD:12 7 Normal [facility] ED Note-Physician [id number]#1.00CD:12 7 [facility] Lab Reportson 01-22-2023 Lab Reports [id number]#1.00CD:12 7 [facility] Patient Correspondenceon Patient Correspondence [id number]#1.00CD:12 7 [facility] CULTURE URINEon 01-16-2023 CULTURE URINE Isolate 1 [...] F Nitrofurantoin <=16 S F Normal [facility] Comment on above: Performed By: #### U MICRO, ERUR #### [facility] [address] [place] [address] Dr. Alfredo Lizama CBC AUTO DIFFon 01-13-2023 BASO # 0.1 103/ul Normal 0.0-0.1 [facility] Comment on above: Performed By: #### U MICRO, ERUR #### [facility] [address] [place] [address] Dr. Alfredo Lizama Basophils/100 WBC (Bld) 0.7 % Normal 0.2-2.0 [facility] Comment on above: Performed By: #### U MICRO, ERUR #### [facility] [address] [place] [address] Dr. Alfredo Lizama EO # 0.3 103/ul Normal 0.0-0.7 [facility] Comment on above: Performed By: #### U MICRO, ERUR #### [facility] [address] [place] [address] Dr. Alfredo Lizama Eosinophils/100 WBC (Bld) 3.2 % Normal 0.9-7.0 [facility] Comment on above: Performed By: #### U MICRO, ERUR #### [facility] [address] [place] [address] Dr. Alfredo Lizama Erythrocyte distribution width (RBC) [Ratio] 13.0 % Normal 11.0-15.0 [facility] Comment on above: Performed By: #### U MICRO, ERUR #### [facility] [address] [place] [address] Dr. Alfredo Lizama Hematocrit (Bld) [Volume fraction] 43.2 % Normal 36.0-48.0 [facility] Comment on above: Performed By: #### U MICRO, ERUR #### [facility] [address] [place] [address] Dr. Alfredo Lizama Hemoglobin (Bld) [Mass/Vol] 14.1 g/dL Normal 12.0-16.0 [facility] Comment on above: Performed By: #### U MICRO, ERUR #### [facility] [address] [place] [address] Dr. Alfredo Lizama IG # 0.02 10e3/ul Normal 0.00-0.03 [facility] Comment on above: Performed By: #### U MICRO, ERUR #### [facility] [address] [place] [address] Dr. Alfredo Lizama IG % 0.2 % Normal 0.0-0.5 [facility] Comment on above: Performed By: #### U MICRO, ERUR #### [facility] [address] [address] [address] Alfredo Lizama LYMPH # 3.0 103/ul Normal 1.2-3.8 [facility] Comment on above: Performed By: #### U MICRO, ERUR #### [facility] [address] [place] [address] Dr. Alfredo Lizama Lymphocytes/100 WBC (Bld) 35.6 % Normal 20.5-60.0 [facility] Comment on above: Performed By: #### U MICRO, ERUR #### [facility] [address] [place] [address] Dr. Alfredo Lizama MANUAL DIFF REQ NO Normal [facility] Comment on above: Performed By: #### U MICRO, ERUR #### [facility] [address] [place] [address] Dr. Alfredo Lizama MCH (RBC) [Entitic mass] 29.4 pg Normal 26.7-34.0 [facility] Comment on above: Performed By: #### U MICRO, ERUR #### [facility] [address] [place] [address] Dr. Alfredo Lizama MCHC (RBC) [Mass/Vol] 32.6 g/dL Normal 29.9-35.2 [facility] Comment on above: Performed By: #### U MICRO, ERUR #### [facility] [address] [place] [address] Dr. Alfredo Lizama MCV (RBC) [Entitic vol] 90.0 fL Normal 81.0-99.0 [facility] Comment on above: Performed By: #### U MICRO, ERUR #### [facility] [address] [place] [address] Dr. Alfredo Lizama MONO # 0.4 103/ul Normal 0.3-0.8 [facility] Comment on above: Performed By: #### U MICRO, ERUR #### [facility] [address] [place] [address] Dr. Alfredo Lizama Monocytes/100 WBC (Bld) 4.8 % Normal 1.7-12.0 [facility] Comment on above: Performed By: #### U MICRO, ERUR #### [facility] [address] [address] [address] Alfredo Lizama NEUT # 4.7 103/ul Normal 1.4-6.5 [facility] Comment on above: Performed By: #### U MICRO, ERUR #### [facility] [address] [address] [address] Alfredo Lizama Neutrophils/100 WBC (Bld) 55.5 % Normal 43.0-75.0 [facility] Comment on above: Performed By: #### U MICRO, ERUR #### [facility] [address] [address] [address] Alfredo Lizama Platelet mean volume (Bld) [Entitic vol] 9.5 fL Normal 9.5-13.5 [facility] Comment on above: Performed By: #### U MICRO, ERUR #### [facility] [address] [address] [address] Alfredo Lizama PLT 267 103/ul Normal 150-450 [facility] Comment on above: Performed By: #### U MICRO, ERUR #### [facility] [address] [place] [address] Dr. Alfredo Lizama RBC 4.80 106/ul Normal 4.20-5.40 [facility] Comment on above: Performed By: #### U MICRO, ERUR #### [facility] [address] [address] [address] Alfredo Lizama WBC 8.5 103/ul Normal 4.0-11.0 [facility] Comment on above: Performed By: #### U MICRO, ERUR #### [facility] [address] [address] [address] Alfredo Lizama ER URINE PROFILEon 3 Bilirubin Ql (U) Negative Normal NEGATIVE [facility] Comment on above: Performed By: #### E RUR UMICRO #### [facility] [address] [place] [address] Dr. Alfredo Lizama Clarity (U) CLOUDY Abnormal CLEAR [facility] Comment on above: Performed By: #### Jacque ESTRADA UMICRO #### [facility] [address] [place] [address] Dr. Alfredo Lizama Color (U) YELLOW Normal YELLOW [facility] Comment on above: Performed By: #### Jacque ESTRADA UMICRO #### [facility] [address] [place] [address] Dr. Alfredo Lizama ERUAHD A micrscopic examina tion will be performed if indicated. Normal [facility] Comment on above: Performed By: #### Jacque ESTRADA UMICRO #### [facility] [address] [place] [address] Dr. Alfredo Lizama Glucose Ql (U) Negative Normal NEGATIVE [facility] Comment on above: Performed By: #### Jacque ESTRADA UMICRO #### [facility] [address] [place] [address] Dr. Alfredo Lizama Hemoglobin Ql (U) MODERATE Abnormal NEGATIVE [facility] Comment on above: Performed By: #### Jacque ESTRADA UMICRO #### [facility] [address] [place] [address] Dr. Alfredo Lizama Ketones Ql (U) TRACE Abnormal NEGATIVE [facility] Comment on above: Performed By: #### Jacque ESTRADA UMICRO #### [facility] [address] [place] [address] Dr. Alfredo Lizama LEUKOCYTES SMALL Abnormal NEGATIVE [facility] Comment on above: Performed By: #### Jacque ESTRADA UMICRO #### [facility] [address] [place] [address] Dr. Alfredo Lizama Nitrite Ql (U) Negative Normal NEGATIVE [facility] Comment on above: Performed By: #### Jacque ESTRADA UMICRO #### [facility] [address] [place] [address] Dr. Alfredo Lizama pH (U) 8.0 [pH] Normal 5-9 [facility] Comment on above: Performed By: #### Jacque ESTRADA UMICRO #### [facility] [address] [place] [address] Dr. Alfredo Lizama Protein (U) [Mass/Vol] 100 mg/dL Abnormal NEGAT LATISHA/ TRACE [facility] Comment on above: Performed By: #### CHINMAY CHAVESRO #### [facility] [address] [place] [address] Dr. Alfredo Lizama SPEC GRAVITY 1.015 Normal 1.005-<=1. 025 [facility] Comment on above: Performed By: #### Jacque ESTRADA UMICRO #### [facility] [address] [place] [address] Dr. Alfredo Lizama UR MICRO IND INDICATED Normal [facility] Comment on above: Performed By: #### CHINMAY CHAVESRO #### [facility] [address] [place] [address] Dr. Alfredo Lizama Urobilinogen Qn (U) 1.0 {Tesha'U}/dL Normal 0.2 - 1. 0 [facility] Comment on above: Performed By: #### CHINMAY CHAVESRO #### [facility] [address] [place] [address] Dr. Alfredo Lizama PROF CHEM 8 (BAS METB)on Anion gap [Moles/Vol] 8.4 mmol/L Normal [facility] Comment on above: Performed By: #### U MICRO, ERUR #### [facility] [address] [place] [address] Dr. Alfredo Lizama Calcium [Mass/Vol] 8.7 mg/dL Normal 8.5-10.1 [facility] Comment on above: Performed By: #### U MICRO, ERUR #### [facility] [address] [place] [address] Dr. Alfredo Lizama Chloride [Moles/Vol] 107 mmol/L Normal 98-107 [facility] Comment on above: Performed By: #### U MICRO, ERUR #### [facility] [address] [place] [address] Dr. Alfredo Lizama CO2 [Moles/Vol] 28.3 mmol/L Normal 21.0-32.0 [facility] Comment on above: Performed By: #### U MICRO, ERUR #### [facility] [address] [address] [address] Alfredo Lizama Creatinine [Mass/Vol] 0.70 mg/dL Normal 0.55-1.02 [facility] Comment on above: Performed By: #### U MICRO, ERUR #### [facility] [address] [address] [address] Alfredo Lizama EGFR-AF BOTSWANAN >60 Normal >=60 [facility] Comment on above: Performed By: #### U MICRO, ERUR #### [facility] [address] [address] [address] Alfredo Lizama EGFR-NON AF BOTSWANAN >60 Normal >=60 [facility] Comment on above: Performed By: #### U MICRO, ERUR #### [facility] [address] [address] [address] Alfredo Lizama Glucose [Mass/Vol] 97 mg/dL Normal 74-106 [facility] Comment on above: Performed By: #### U MICRO, ERUR #### [facility] [address] [address] [address] Alfredo Lizama Potassium [Moles/Vol] 3.7 mmol/L Normal 3.5-5.1 [facility] Comment on above: Performed By: #### U MICRO, ERUR #### [facility] [address] [address] [address] Alfredo Lizama Sodium [Moles/Vol] 140 mmol/L Normal 136-145 [facility] Comment on above: Performed By: #### U MICRO, ERUR #### [facility] [address] [address] [address] Alfredo Lizama Urea nitrogen [Mass/Vol] 7.0 mg/dL Normal 7.0-18.0 [facility] Comment on above: Performed By: #### U MICRO, ERUR #### [facility] [address] [address] [address] Alfredo Lizama Urea nitrogen/Creatinine [Mass ratio] 10.0 mg/mg Normal [facility] Comment on above: Performed By: #### U MICRO, ERUR #### [facility] [address] [address] [address] Alfredo Lizama URINE MICROSCOPIC ONLYon AMORPHOUS CRYSTALS FEW Normal [facility] Comment on above: Performed By: #### Jacque ESTRADA UMICRO #### [facility] [address] [place] [address] Dr. Alfredo Lizama BACTERIA LARGE Abnormal NONE SEEN [facility] Comment on above: Performed By: #### Jacque ESTRADA UMICRO #### [facility] [address] [place] [address] Dr. Alfredo Lizama Bacteria identified Cx Nom (U) INDICATED Normal [facility] Comment on above: Performed By: #### Jacque ESTRADA UMICRO #### [facility] [address] [place] [address] Dr. Alfredo Lizama CAST NONE SEEN Normal NONE SEEN [facility] Comment on above: Performed By: #### Jacque ESTRADA UMICRO #### [facility] [address] [place] [address] Dr. Alfredo Lizama Crystals LM Nom (Urine sed) SEEN Abnormal NONE SEEN [facility] Comment on above: Performed By: #### Jacque ESTRADA UMICRO #### [facility] [address] [place] [address] Dr. Alfredo Lizama Epithelial cells LM Ql (Urine sed) RARE Normal NONE SEEN /RARE [facility] Comment on above: Performed By: #### Jacque ESTRADA UMICRO #### [facility] [address] [place] [address] Dr. Alfredo Lizama MUCOUS NONE SEEN Normal NONE SEEN [facility] Comment on above: Performed By: #### Jacque ESTRADA UMICRO #### [facility] [address] [place] [address] Dr. Alfredo Lizama RBC 2-5 Abnormal 0-2 [facility] Comment on above: Performed By: #### Jacque ESTRADA UMICRO #### [facility] [address] [place] [address] Dr. Alfredo Lizama TRIPLE PHOS CRYSTALS FEW Normal [facility] Comment on above: Performed By: #### LINDA CHAVES #### [facility] [address] [address] [address] Alfredo Lizama WBC 75-100 Abnormal NONE SEEN [facility] Comment on above: Performed By: #### LINDA CHAVES #### [facility] [address] [place], [place] [address] Dr. Alfredo Lizama Patient Letter FTon 2022 Patient Letter [facility] (Inserted Image. Shelly ble to display) January 10, 2023 MORALES LEE [address] [place] [address] MORALES LEE 1975 Dear Morales, I am corresponding with you by certified mail because of repeat non compliance. You missed your catheter exchange appointment on 12/31/22. It is recommended your Alvares catheter be exchanged every 4 weeks to prevent encrustation and infection. Also you were referred to Dr Zhang at [facility] for further evaluation regarding your condition [...] Danya Bingham MD [facility] [address] [facility], [place] [address] [facility] CULTURE URINEon 12-25-2022 CULTURE URINE Isolate 1 [...] Trimethoprim/Sulfamethoxa zole <=20 S F Normal [facility] Comment on above: Performed By: #### U MICRO, ERUR #### [facility] [address] [place] [address] Dr. Alfredo Lizama AMYLASEon 11-09-2022 Amylase [Catalytic activity/Vol] 14 U/L Critically low 25-115 [facility] Comment on above: Performed By: #### U MICRO, ERUR #### [facility] [address] [place] [address] Dr. Alfredo Lizama CBC AUTO DIFFon 11-09-2022 BASO # 0.1 103/ul Normal 0.0-0.1 [facility] Comment on above: Performed By: #### U MICRO, ERUR #### [facility] [address] [place] [address] Dr. Alfredo Lizama Basophils/100 WBC (Bld) 0.8 % Normal 0.2-2.0 [facility] Comment on above: Performed By: #### U MICRO, ERUR #### [facility] [address] [place] [address] Dr. Alfredo Lizama EO # 0.2 103/ul Normal 0.0-0.7 [facility] Comment on above: Performed By: #### U MICRO, ERUR #### [facility] [address] [place] [address] Dr. Alfredo Lizama Eosinophils/100 WBC (Bld) 2.5 % Normal 0.9-7.0 [facility] Comment on above: Performed By: #### U MICRO, ERUR #### [facility] [address] [place] [address] Dr. Alfredo Lizama Erythrocyte distribution width (RBC) [Ratio] 12.7 % Normal 11.0-15.0 [facility] Comment on above: Performed By: #### U MICRO, ERUR #### [facility] [address] [place] [address] Dr. Alfredo Lizama Hematocrit (Bld) [Volume fraction] 46.3 % Normal 36.0-48.0 [facility] Comment on above: Performed By: #### U MICRO, ERUR #### [facility] [address] [place] [address] Dr. Alfredo Lizama Hemoglobin (Bld) [Mass/Vol] 15.9 g/dL Normal 12.0-16.0 [facility] Comment on above: Performed By: #### U MICRO, ERUR #### [facility] [address] [place] [address] Dr. Alfredo Lizama IG # 0.02 10e3/ul Normal 0.00-0.03 [facility] Comment on above: Performed By: #### U MICRO, ERUR #### [facility] [address] [place] [address] Dr. Alfredo Lizama IG % 0.2 % Normal 0.0-0.5 [facility] Comment on above: Performed By: #### U MICRO, ERUR #### [facility] [address] [place] [address] Dr. Alfredo Lizama LYMPH # 2.6 103/ul Normal 1.2-3.8 [facility] Comment on above: Performed By: #### U MICRO, ERUR #### [facility] [address] [place] [address] Dr. Alfredo Lizama Lymphocytes/100 WBC (Bld) 31.3 % Normal 20.5-60.0 [facility] Comment on above: Performed By: #### U MICRO, ERUR #### [facility] [address] [place] [address] Dr. Alfredo Lizama MANUAL DIFF REQ NO Normal [facility] Comment on above: Performed By: #### U MICRO, ERUR #### [facility] [address] [place] [address] Dr. Alfredo Lizama MCH (RBC) [Entitic mass] 29.3 pg Normal 26.7-34.0 [facility] Comment on above: Performed By: #### U MICRO, ERUR #### [facility] [address] [place] [address] Dr. Alfredo Lizama MCHC (RBC) [Mass/Vol] 34.3 g/dL Normal 29.9-35.2 [facility] Comment on above: Performed By: #### U MICRO, ERUR #### [facility] [address] [address] [address] Alfredo Lizama MCV (RBC) [Entitic vol] 85.4 fL Normal 81.0-99.0 [facility] Comment on above: Performed By: #### U MICRO, ERUR #### [facility] [address] [place] [address] Dr. Alfredo Lizama MONO # 0.6 103/ul Normal 0.3-0.8 [facility] Comment on above: Performed By: #### U MICRO, ERUR #### [facility] [address] [place] [address] Dr. Alfredo Lizama Monocytes/100 WBC (Bld) 6.6 % Normal 1.7-12.0 [facility] Comment on above: Performed By: #### U MICRO, ERUR #### [facility] [address] [place] [address] Dr. Alfredo Lizama NEUT # 4.9 103/ul Normal 1.4-6.5 [facility] Comment on above: Performed By: #### U MICRO, ERUR #### [facility] [address] [place] [address] Dr. Alfredo Lizama Neutrophils/100 WBC (Bld) 58.6 % Normal 43.0-75.0 [facility] Comment on above: Performed By: #### U MICRO, ERUR #### [facility] [address] [place] [address] Dr. Alfredo Lizama Platelet mean volume (Bld) [Entitic vol] 9.5 fL Normal 9.5-13.5 [facility] Comment on above: Performed By: #### U MICRO, ERUR #### [facility] [address] [place] [address] Dr. Alfredo Lizama PLT 273 103/ul Normal 150-450 [facility] Comment on above: Performed By: #### U MICRO, ERUR #### [facility] [address] [place] [address] Dr. Alfredo Lizama RBC 5.42 106/ul Critically high 4.20-5.40 [facility] Comment on above: Performed By: #### U MICRO, ERUR #### [facility] [address] [place] [address] Dr. Alfredo Lizama WBC 8.4 103/ul Normal 4.0-11.0 [facility] Comment on above: Performed By: #### U MICRO, ERUR #### [facility] [address] [place] [address] Dr. Alfredo Lizama CULTURE URINEon 11-09-2022 CULTURE URINE Culture Observations : MODERATE GROWTH OF MIXED GENITAL ROSANNA. NO POTENTIAL PATHOGENS SEEN. Normal [facility] Comment on above: Performed By: #### U MICRO, ERUR #### [facility] [address] [place] [address] Dr. Alfredo Lizama ER URINE PROFILEon 3 Bilirubin Ql (U) Negative Normal NEGATIVE [facility] Comment on above: Performed By: #### U MICRO, ERUR #### [facility] [address] [place] [address] Dr. Alfredo Lizama Clarity (U) CLEAR Normal CLEAR [facility] Comment on above: Performed By: #### U MICRO, ERUR #### [facility] [address] [place] [address] Dr. Alfredo Lizama Color (U) LT. YELLOW Normal YELLOW [facility] Comment on above: Performed By: #### U MICRO, ERUR #### [facility] [address] [place] [address] Dr. Alfredo Lizama ERUAHD A micrscopic examina tion will be performed if indicated. Normal [facility] Comment on above: Performed By: #### U MICRO, ERUR #### [facility] [address] [place] [address] Dr. Alfredo Lizama Glucose Ql (U) Negative Normal NEGATIVE [facility] Comment on above: Performed By: #### U MICRO, ERUR #### [facility] [address] [place] [address] Dr. Alfredo Lizama Hemoglobin Ql (U) MODERATE Abnormal NEGATIVE [facility] Comment on above: Performed By: #### U MICRO, ERUR #### [facility] [address] [place] [address] Dr. Alfredo Lizama Ketones Ql (U) Negative Normal NEGATIVE [facility] Comment on above: Performed By: #### U MICRO, ERUR #### [facility] [address] [place] [address] Dr. Alfredo Lizama LEUKOCYTES LARGE Abnormal NEGATIVE [facility] Comment on above: Performed By: #### U MICRO, ERUR #### [facility] [address] [address] [address] Alfredo Lizama Nitrite Ql (U) Negative Normal NEGATIVE [facility] Comment on above: Performed By: #### U MICRO, ERUR #### [facility] [address] [place] [address] Dr. Alfredo Lizama pH (U) 7.0 [pH] Normal 5-9 [facility] Comment on above: Performed By: #### U MICRO, ERUR #### [facility] [address] [place] [address] Dr. Alfredo Lizama SPEC GRAVITY 1.015 Normal 1.005-<=1. 025 [facility] Comment on above: Performed By: #### U MICRO, ERUR #### [facility] [address] [place] [address] Dr. Alfredo Lizama UA PROTEIN Negative Normal NEGATIVE/ TRACE [facility] Comment on above: Performed By: #### U MICRO, ERUR #### [facility] [address] [place] [address] Dr. Alfredo Lizama UR MICRO IND INDICATED Normal [facility] Comment on above: Performed By: #### U MICRO, ERUR #### [facility] [address] [place] [address] Dr. Alfredo Lizama Urobilinogen Qn (U) 0.2 {Tesha'U}/dL Normal 0.2 - 1. 0 [facility] Comment on above: Performed By: #### U MICRO, ERUR #### [facility] [address] [place] [address] Dr. Alfredo Lizama LIPASEon 11-09-2022 Lipase [Catalytic activity/Vol] 34.0 U/L Critically low 73.0-393.0 [facility] Comment on above: Performed By: #### U MICRO, ERUR #### [facility] [address] [place] [address] Dr. Alfredo Lizama PROF 14(COMP METB)on 023 Albumin [Mass/Vol] 4.0 g/dL Normal 3.4-5.0 [facility] Comment on above: Performed By: #### U MICRO, ERUR #### [facility] [address] [place] [address] Dr. Alfredo Lizama Albumin/Globulin [Mass ratio] 1.0 {ratio} Normal [facility] Comment on above: Performed By: #### U MICRO, ERUR #### [facility] [address] [place] [address] Dr. Alfredo Lizama ALP [Catalytic activity/Vol] 206 U/L Critically high 46-116 [facility] Comment on above: Performed By: #### U MICRO, ERUR #### [facility] [address] [place] [address] Dr. Alfredo Lizama ALT [Catalytic activity/Vol] 53 U/L Normal 14-59 [facility] Comment on above: Performed By: #### U MICRO, ERUR #### [facility] [address] [place] [address] Dr. Alfredo Lizama Anion gap [Moles/Vol] 14.5 mmol/L Normal [facility] Comment on above: Performed By: #### U MICRO, ERUR #### [facility] [address] [place] [address] Dr. Alfredo Lizama AST [Catalytic activity/Vol] 55 U/L Critically high 15-37 [facility] Comment on above: Performed By: #### U MICRO, ERUR #### [facility] [address] [place] [address] Dr. Alfredo Lizama Bilirubin [Mass/Vol] 0.7 mg/dL Normal 0.2-1.0 [facility] Comment on above: Performed By: #### U MICRO, ERUR #### [facility] [address] [address] [address] Alfredo Lizama Calcium [Mass/Vol] 9.0 mg/dL Normal 8.5-10.1 [facility] Comment on above: Performed By: #### U MICRO, ERUR #### [facility] [address] [address] [address] Alfredo Lizama Chloride [Moles/Vol] 100 mmol/L Normal 98-107 [facility] Comment on above: Performed By: #### U MICRO, ERUR #### [facility] [address] [place] [address] Dr. Alfredo Lizama CO2 [Moles/Vol] 28.3 mmol/L Normal 21.0-32.0 [facility] Comment on above: Performed By: #### U MICRO, ERUR #### [facility] [address] [place] [address] Dr. Alfredo Lizama Creatinine [Mass/Vol] 0.65 mg/dL Normal 0.55-1.02 [facility] Comment on above: Performed By: #### U MICRO, ERUR #### [facility] [address] [place] [address] Dr. Alfredo Lizama EGFR-AF BOTSWANAN >60 Normal >=60 [facility] Comment on above: Performed By: #### U MICRO, ERUR #### [facility] [address] [place] [address] Dr. Alfredo Lizama EGFR-NON AF BOTSWANAN >60 Normal >=60 [facility] Comment on above: Performed By: #### U MICRO, ERUR #### [facility] [address] [address] [address] Alfredo Lizama Globulin (S) [Mass/Vol] 3.9 g/dL Normal [facility] Comment on above: Performed By: #### U MICRO, ERUR #### [facility] [address] [place] [address] Dr. Alfredo Lizama Glucose [Mass/Vol] 134 mg/dL Critically high 74-106 [facility] Comment on above: Performed By: #### U MICRO, ERUR #### [facility] [address] [place] [address] Dr. Alfredo Lizama Potassium [Moles/Vol] 3.8 mmol/L Normal 3.5-5.1 [facility] Comment on above: Performed By: #### U MICRO, ERUR #### [facility] [address] [place] [address] Dr. Alfredo Lizama Protein [Mass/Vol] 7.9 g/dL Normal 6.4-8.2 [facility] Comment on above: Performed By: #### U MICRO, ERUR #### [facility] [address] [place] [address] Dr. Alfredo Lizama Sodium [Moles/Vol] 139 mmol/L Normal 136-145 [facility] Comment on above: Performed By: #### U MICRO, ERUR #### [facility] [address] [place] [address] Dr. Alfredo Lizama Urea nitrogen [Mass/Vol] 7.0 mg/dL Normal 7.0-18.0 [facility] Comment on above: Performed By: #### U MICRO, ERUR #### [facility] [address] [place] [address] Dr. Alfredo Lizama Urea nitrogen/Creatinine [Mass ratio] 10.7 mg/mg Normal [facility] Comment on above: Performed By: #### U MICRO, ERUR #### [facility] [address] [place] [address] Dr. Alfredo Lizama URINE MICROSCOPIC ONLYon BACTERIA TRACE Abnormal NONE SEEN [facility] Comment on above: Performed By: #### U MICRO, ERUR #### [facility] [address] [place] [address] Dr. Alfredo Lizama Bacteria identified Cx Nom (U) INDICATED Normal [facility] Comment on above: Performed By: #### U MICRO, ERUR #### [facility] [address] [place] [address] Dr. Alfredo Lizama CAST NONE SEEN Normal NONE SEEN [facility] Comment on above: Performed By: #### U MICRO, ERUR #### [facility] [address] [place] [address] Dr. Alfredo Lizama Crystals LM Nom (Urine sed) NONE SEEN Normal NONE SEEN [facility] Comment on above: Performed By: #### U MICRO, ERUR #### [facility] [address] [place] [address] Dr. Alfredo Lizama Epithelial cells LM Ql (Urine sed) FEW Abnormal NONE SEEN /RARE [facility] Comment on above: Performed By: #### U MICRO, ERUR #### [facility] [address] [place] [address] Dr. Alfredo Lizama MUCOUS NONE SEEN Normal NONE SEEN [facility] Comment on above: Performed By: #### U MICRO, ERUR #### [facility] [address] [place] [address] Dr. Alfredo Lizama RBC 20-50 Abnormal 0-2 [facility] Comment on above: Performed By: #### U MICRO, ERUR #### [facility] [address] [place] [address] Dr. Alfredo Lizama WBC 20-50 Abnormal NONE SEEN [facility] Comment on above: Performed By: #### U MICRO, ERUR #### [facility] [address] [place] [address] Dr. Alfredo Lizama XR ABD FLAT_UPon 11-09-2022 [...] ENRIQUE LOWE Date: 2022-11-09 11:06 Normal [facility] CULTURE URINEon 10-18-2022 CULTURE URINE Isolate 1 [...] Trimethoprim/Sulfamethoxa zole <=10 S F Normal [facility] Comment on above: Performed By: #### U MICRO, ERUR #### [facility] [address] [place] [address] Dr. Alfredo Lizama ER URINE PROFILEon 3 Bilirubin Ql (U) Negative Normal NEGATIVE [facility] Comment on above: Performed By: #### LINDA CHAVES #### [facility] [address] [place] [address] Dr. Alfredo Lizama Clarity (U) CLEAR Normal CLEAR [facility] Comment on above: Performed By: #### CHINMAY CHAVESRO #### [facility] [address] [place] [address] Dr. Alfredo Lizama Color (U) YELLOW Normal YELLOW [facility] Comment on above: Performed By: #### FER CHAVESICRO #### [facility] [address] [place] [address] Dr. Alfredo RAYMUNDO A micrscopic examina tion will be performed if indicated. Normal [facility] Comment on above: Performed By: #### Jacque ESTRADA UMICRO #### [facility] [address] [place] [address] Dr. Alfredo Lizama Glucose Ql (U) Negative Normal NEGATIVE [facility] Comment on above: Performed By: #### Jacque ESTRADA UMICRO #### [facility] [address] [place] [address] Dr. Alfredo Lizama Hemoglobin Ql (U) LARGE Abnormal NEGATIVE [facility] Comment on above: Performed By: #### Jacque ESTRADA UMICRO #### [facility] [address] [place] [address] Dr. Alfredo Lizama Ketones Ql (U) Negative Normal NEGATIVE [facility] Comment on above: Performed By: #### Jacque ESTRADA UMICRO #### [facility] [address] [place] [address] Dr. Alfredo Lizama LEUKOCYTES LARGE Abnormal NEGATIVE [facility] Comment on above: Performed By: #### Jacque ESTRADA UMICRO #### [facility] [address] [place] [address] Dr. Alfredo Lizama Nitrite Ql (U) Positive Abnormal NEGATIVE [facility] Comment on above: Performed By: #### Jacque ESTRADA UMICRO #### [facility] [address] [place] [address] Dr. Alfredo Lizama pH (U) 6.5 [pH] Normal 5-9 [facility] Comment on above: Performed By: #### FER CHAVESICRO #### [facility] [address] [place] [address] Dr. Alfredo Lizama Protein (U) [Mass/Vol] 100 mg/dL Abnormal NEGAT LATISHA/ TRACE [facility] Comment on above: Performed By: #### Jacque ESTRADA UMICRO #### [facility] [address] [place] [address] Dr. Alfredo Lizama SPEC GRAVITY 1.010 Normal 1.005-<=1. 025 [facility] Comment on above: Performed By: #### CHINMAY CHAEVSRO #### [facility] [address] [place] [address] Dr. Alfredo Lizama UR MICRO IND INDICATED Normal [facility] Comment on above: Performed By: #### FER CHAVESICRO #### [facility] [address] [place] [address] Dr. Alfredo Lizama Urobilinogen Qn (U) 1.0 {Tesha'U}/dL Normal 0.2 - 1. 0 [facility] Comment on above: Performed By: #### E RURLINDA #### [facility] [address] [place] [address] Dr. Alfredo Lizama URINE MICROSCOPIC ONLYon BACTERIA MODERATE Abnormal NONE SEEN [facility] Comment on above: Performed By: #### U MICRO, ERUR #### [facility] [address] [place] [address] Dr. Alfredo Lizama Bacteria identified Cx Nom (U) INDICATED Normal [facility] Comment on above: Performed By: #### U MICRO, ERUR #### [facility] [address] [place] [address] Dr. Alfredo Lizama CA OX CRYSTALS RARE Normal [facility] Comment on above: Performed By: #### U MICRO, ERUR #### [facility] [address] [place] [address] Dr. Alfredo Lizama CAST NONE SEEN Normal NONE SEEN [facility] Comment on above: Performed By: #### U MICRO, ERUR #### [facility] [address] [place] [address] Dr. Alfredo Lizama Crystals LM Nom (Urine sed) SEEN Abnormal NONE SEEN [facility] Comment on above: Performed By: #### U MICRO, ERUR #### [facility] [address] [place] [address] Dr. Alfredo Lizama Epithelial cells LM Ql (Urine sed) MODERATE Abnormal NONE SEEN /RARE [facility] Comment on above: Performed By: #### U MICRO, ERUR #### [facility] [address] [place] [address] Dr. Alfredo Lizama MUCOUS TRACE Abnormal NONE SEEN [facility] Comment on above: Performed By: #### U MICRO, ERUR #### [facility] [address] [place] [address] Dr. Alfredo Lizama RBC 20-50 Abnormal 0-2 [facility] Comment on above: Performed By: #### U MICRO, ERUR #### [facility] [address] [place] [address] Dr. Alfredo Lizama WBC 50-75 Abnormal NONE SEEN [facility] Comment on above: Performed By: #### U MICRO, ERUR #### [facility] [address] [place] [address] Dr. Alfredo Lizama Covid-19 PCR ([facility])on 08-06 SARS-CoV-2 (COVID-19) RNA ADRIÁN+probe Ql (Unsp spec) Not detected Normal NOT DETECTED [facility] Comment on above: Result Comment: When diagnostic [...] for this test is supported by the Mis Manager of Health and Human Service's declaration that [...] Performed By: #### U MICRO, ERUR #### [facility] [address] [place] [address] Dr. Alfredo Lizama CBC AUTO DIFFon 08-24-2022 BASO # 0.1 103/ul Normal 0.0-0.1 [facility] Comment on above: Performed By: #### C BC #### [facility] [address] [place] [address] Dr. Alfredo Lizama Basophils/100 WBC (Bld) 0.8 % Normal 0.2-2.0 [facility] Comment on above: Performed By: #### C BC #### [facility] [address] [place] [address] Dr. Alfredo Lizama EO # 0.3 103/ul Normal 0.0-0.7 [facility] Comment on above: Performed By: #### C BC #### [facility] [address] [place] [address] Dr. Alfredo Lizama Eosinophils/100 WBC (Bld) 3.1 % Normal 0.9-7.0 [facility] Comment on above: Performed By: #### C BC #### [facility] [address] [place] [address] Dr. Alfredo Lizama Erythrocyte distribution width (RBC) [Ratio] 13.4 % Normal 11.0-15.0 [facility] Comment on above: Performed By: #### C BC #### [facility] [address] [place] [address] Dr. Alfredo Lizama Hematocrit (Bld) [Volume fraction] 47.2 % Normal 36.0-48.0 [facility] Comment on above: Performed By: #### C BC #### [facility] [address] [place] [address] Dr. Alfredo Lizama Hemoglobin (Bld) [Mass/Vol] 15.6 g/dL Normal 12.0-16.0 [facility] Comment on above: Performed By: #### C BC #### [facility] [address] [place] [address] Dr. Alfredo Lizama IG # 0.02 10e3/ul Normal 0.00-0.03 [facility] Comment on above: Performed By: #### C BC #### [facility] [address] [place] [address] Dr. Alfredo Lizama IG % 0.2 % Normal 0.0-0.5 [facility] Comment on above: Performed By: #### C BC #### [facility] [address] [place] [address] Dr. Alfredo Lizama LYMPH # 4.4 103/ul Critically high 1.2-3.8 [facility] Comment on above: Performed By: #### C BC #### [facility] [address] [place] [address] Dr. Alfredo Lizama Lymphocytes/100 WBC (Bld) 42.3 % Normal 20.5-60.0 [facility] Comment on above: Performed By: #### C BC #### [facility] [address] [place] [address] Dr. Alfredo Lziama MANUAL DIFF REQ NO Normal [facility] Comment on above: Performed By: #### C BC #### [facility] [address] [place] [address] Dr. Alfredo Lizama MCH (RBC) [Entitic mass] 28.8 pg Normal 26.7-34.0 [facility] Comment on above: Performed By: #### C BC #### [facility] [address] [place] [address] Dr. Alfredo Lizama MCHC (RBC) [Mass/Vol] 33.1 g/dL Normal 29.9-35.2 [facility] Comment on above: Performed By: #### C BC #### [facility] [address] [place] [address] Dr. Alfredo Lizama MCV (RBC) [Entitic vol] 87.2 fL Normal 81.0-99.0 [facility] Comment on above: Performed By: #### C BC #### [facility] [address] [place] [address] Dr. Alfredo Lizama MONO # 0.6 103/ul Normal 0.3-0.8 [facility] Comment on above: Performed By: #### C BC #### [facility] [address] [place] [address] Dr. Alfredo Lizama Monocytes/100 WBC (Bld) 5.3 % Normal 1.7-12.0 [facility] Comment on above: Performed By: #### C BC #### [facility] [address] [place] [address] Dr. Alfredo Lizama NEUT # 5.0 103/ul Normal 1.4-6.5 [facility] Comment on above: Performed By: #### C BC #### [facility] [address] [place] [address] Dr. Alfredo Lizama Neutrophils/100 WBC (Bld) 48.3 % Normal 43.0-75.0 [facility] Comment on above: Performed By: #### C BC #### [facility] [address] [address] [address] Alfredo Lizama Platelet mean volume (Bld) [Entitic vol] 9.9 fL Normal 9.5-13.5 [facility] Comment on above: Performed By: #### C BC #### [facility] [address] [place] [address] Dr. Alfredo Lizama PLT 298 103/ul Normal 150-450 [facility] Comment on above: Performed By: #### C BC #### [facility] [address] [address] [address] Alfredo Lizama RBC 5.41 106/ul Critically high 4.20-5.40 [facility] Comment on above: Performed By: #### C BC #### [facility] [address] [place] [address] Dr. Alfredo Lizama WBC 10.3 103/ul Normal 4.0-11.0 [facility] Comment on above: Performed By: #### C BC #### [facility] [address] [place] [address] Dr. Alfredo Lizama PROF CHEM 8 (BAS METB)on Anion gap [Moles/Vol] 14.3 mmol/L Normal [facility] Comment on above: Performed By: #### U MICRO, ERUR #### [facility] [address] [place] [address] Dr. Alfredo Lizama Calcium [Mass/Vol] 9.1 mg/dL Normal 8.5-10.1 [facility] Comment on above: Performed By: #### U MICRO, ERUR #### [facility] [address] [place] [address] Dr. Alfredo Lizama Chloride [Moles/Vol] 99 mmol/L Normal 98-107 [facility] Comment on above: Performed By: #### U MICRO, ERUR #### [facility] [address] [place] [address] Dr. Alfredo Lizama CO2 [Moles/Vol] 29.0 mmol/L Normal 21.0-32.0 [facility] Comment on above: Performed By: #### U MICRO, ERUR #### [facility] [address] [place] [address] Dr. Alfredo Lizama Creatinine [Mass/Vol] 0.70 mg/dL Normal 0.55-1.02 [facility] Comment on above: Performed By: #### U MICRO, ERUR #### [facility] [address] [address] [address] Alfredo Lizama EGFR-AF BOTSWANAN >60 Normal >=60 [facility] Comment on above: Performed By: #### U MICRO, ERUR #### [facility] [address] [place] [address] Dr. Alfredo Lizama EGFR-NON AF BOTSWANAN >60 Normal >=60 [facility] Comment on above: Performed By: #### U MICRO, ERUR #### [facility] [address] [place] [address] Dr. Alfredo Lizama Glucose [Mass/Vol] 121 mg/dL Critically high 74-106 [facility] Comment on above: Performed By: #### U MICRO, ERUR #### [facility] [address] [address] [address] Alfredo Lizama Potassium [Moles/Vol] 3.3 mmol/L Critically low 3.5-5.1 [facility] Comment on above: Performed By: #### U MICRO, ERUR #### [facility] [address] [place] [address] Dr. Alfredo Lizama Sodium [Moles/Vol] 139 mmol/L Normal 136-145 [facility] Comment on above: Performed By: #### U MICRO, ERUR #### [facility] [address] [address] [address] Alfredo Lizama Urea nitrogen [Mass/Vol] 5.0 mg/dL Critically low 7.0-18. 0 [facility] Comment on above: Performed By: #### U MICRO, ERUR #### [facility] [address] [address] [address] Alfredo Lizama Urea nitrogen/Creatinine [Mass ratio] 7.1 mg/mg Normal [facility] Comment on above: Performed By: #### U MICRO, ERUR #### [facility] [address] [place] [address] Dr. Alfredo Lizmaa PROTIMEon 08-24-2022 INR Coag (PPP) [Relative time] 0.99 {INR} Normal [facility] Comment on above: Performed By: #### P T, PTT #### [facility] [address] [place] [address] Dr. Alfredo Lizama INR GUIDELINES SEE BELOW Normal [facility] Comment on above: Result Comment: MARY JO RED INR: 2.0 - 3.0 CONDITIONS NOT LISTED BELOW 2.5 - 3.5 FOR PROSTHETIC HEART VALVE REPLACEMENT 2.5 - 3.5 RECURRENT THROMBOSIS Performed By: #### P T, PTT #### [facility] [address] [place] [address] Dr. Alfredo Lizama PT Coag (PPP) [Time] 10.7 s Normal 9.0-11.6 [facility] Comment on above: Performed By: #### P T, PTT #### [facility] [address] [place] [address] Dr. Alfredo Lizama PTTon 08-24-2022 aPTT Coag (Bld) [Time] 31.7 s Normal 22.3-36.2 Th [facility] Comment on above: Performed By: #### P T, PTT #### [facility] [address] [place] [address] Dr. Alfredo Lizama BN SACRUM/COCCYX, MIN 2 [...] 09/20/2019. Thoracolumbar spine radiographs 09/08/2021. ACCESSION NUMBER(S): [id number]; [id number]; [id number] ORDERING CLINICIAN: CANDICE PEREZ FINDINGS: Three views [...] stated. Electronically signed by: GOMEZ JAMA MD [facility] BN SPINE, LUMBOSACRAL; 2 OR [...] 09/20/2019. Thoracolumbar spine radiographs 09/08/2021. ACCESSION NUMBER(S): [id number]; [id number]; [id number] ORDERING CLINICIAN: CANDICE PEREZ FINDINGS: Three views [...] stated. Electronically signed by: GOMEZ JAMA MD [facility] BN SPINE, THORACIC, 3 VIEWSo [...] 09/20/2019. Thoracolumbar spine radiographs 09/08/2021. ACCESSION NUMBER(S): [id number]; [id number]; [id number] ORDERING CLINICIAN: CANDICE HEERSINK FINDINGS: Three views [...] Electronically signed by: GOMEZ JAMA MD Normal [facility] CBC AND DIFFERENTIALon 06-07 % AUTOMATED IMMATURE GRAN 0.2 % Normal 0.0 - 0.9 [facility] Comment on above: Result Comment: Jaleesa ture Granulocyte Count (IG) includes promyelocytes, myelocytes and metamyelocytes but does not include bands. Percent differential counts (%) should be interpreted in the context of the absolute cell counts (cells/L). Performed By: #### R ENAL #### [facility] [address] [place] [address] Basophils (Bld) [#/Vol] 0.09 10*3/uL Normal 0.00 - 0.10 [facility] Comment on above: Performed By: #### R ENAL #### [facility] [address] [place] [address] Basophils/100 WBC (Bld) 1.0 % Normal 0.0 - 2.0 [facility] Comment on above: Performed By: #### R ENAL #### [facility] [address] [place] [address] Eosinophils (Bld) [#/Vol] 0.24 10*3/uL Normal 0.00 - 0.70 [facility] Comment on above: Performed By: #### R ENAL #### [facility] [address] [place] [address] Eosinophils/100 WBC (Bld) 2.6 % Normal 0.0 - 6.0 [facility] Comment on above: Performed By: #### R ENAL #### [facility] [address] [place] [address] Erythrocyte distribution width (RBC) [Ratio] 12.9 % Normal 11.5 - 14.5 [facility] Comment on above: Performed By: #### R ENAL #### [facility] [address] [place] [address] Hematocrit (Bld) [Volume fraction] 48.4 % High 36.0 - 46.0 [facility] Comment on above: Performed By: #### R ENAL #### [facility] [address] [place] [address] Hemoglobin (Bld) [Mass/Vol] 17.1 g/dL High 12.0 - 16.0 [facility] Comment on above: Performed By: #### R ENAL #### [facility] [address] [place] [address] Lymphocytes (Bld) [#/Vol] 2.93 10*3/uL Normal 1.20 - 4.80 [facility] Comment on above: Performed By: #### R ENAL #### [facility] [address] [place] [address] Lymphocytes/100 WBC (Bld) 31.9 % Normal 13.0 - 44.0 [facility] Comment on above: Performed By: #### R ENAL #### [facility] [address] [place] [address] MCHC (RBC) [Mass/Vol] 35.3 g/dL Normal 32.0 - 36.0 [facility] Comment on above: Performed By: #### R ENAL #### [facility] [address] [place] [address] MCV (RBC) [Entitic vol] 85 fL Normal 80 - 100 [facility] Comment on above: Performed By: #### R ENAL #### [facility] [address] [place] [address] Monocytes (Bld) [#/Vol] 0.36 10*3/uL Normal 0.10 - 1.00 [facility] Comment on above: Performed By: #### R ENAL #### [facility] [address] [place] [address] Monocytes/100 WBC (Bld) 3.9 % Normal 2.0 - 10.0 [facility] Comment on above: Performed By: #### R ENAL #### [facility] [address] [place] [address] Neutrophils (Bld) [#/Vol] 5.54 10*3/uL Normal 1.20 - 7.70 [facility] Comment on above: Performed By: #### R ENAL #### [facility] [address] [place] [address] Neutrophils/100 WBC (Bld) 60.4 % Normal 40.0 - 80.0 [facility] Comment on above: Performed By: #### R ENAL #### [facility] [address] [place] [address] NUCLEATED RBC 0.0 /100 WBC Normal 0.0-0.0 [facility] Comment on above: Performed By: #### R ENAL #### [facility] [address] [place] [address] Platelets (Bld) [#/Vol] 365 10*3/uL Normal 150 - 450 [facility] Comment on above: Performed By: #### R ENAL #### [facility] [address] [place] [address] RBC 5.69 x10E12/L High 4.00 - 5.20 [facility] Comment on above: Performed By: #### R ENAL #### [facility] [address] [place] [address] WBC (Bld) [#/Vol] 9.2 10*3/uL Normal 4.4 - 11.3 [facility] Comment on above: Performed By: #### R ENAL #### [facility] [address] [place] [address] COMPREHENSIVE PANELon 2021 Albumin [Mass/Vol] 4.6 g/dL Normal 3.4 - 5.0 [facility] Comment on above: Performed By: #### R ENAL #### [facility] [address] [place] [address] ALP [Catalytic activity/Vol] 192 U/L High 33 - 110 [facility] Comment on above: Performed By: #### R ENAL #### [facility] [address] [place] [address] ALT [Catalytic activity/Vol] 33 U/L Normal 7 - 45 [facility] Comment on above: Result Comment: Melly ents treated with Sulfasalazine may generate falsely decreased results for ALT. Performed By: #### R ENAL #### [facility] [address] [place] [address] Anion gap [Moles/Vol] 16 mmol/L Normal 10 - 20 [facility] Comment on above: Performed By: #### R ENAL #### [facility] [address] [place] [address] AST [Catalytic activity/Vol] 51 U/L High 9 - 39 [facility] Comment on above: Performed By: #### R ENAL #### [facility] [address] [place] [address] Bilirubin [Mass/Vol] 0.5 mg/dL Normal 0.0 - 1.2 [facility] Comment on above: Performed By: #### R ENAL #### [facility] [address] [place] [address] Calcium [Mass/Vol] 10.3 mg/dL Normal 8.6 - 10.6 [facility] Comment on above: Performed By: #### R ENAL #### [facility] [address] [place] [address] Chloride [Moles/Vol] 101 mmol/L Normal 98 - 107 [facility] Comment on above: Performed By: #### R ENAL #### [facility] [address] [place] [address] Creatinine [Mass/Vol] 0.61 mg/dL Normal 0.50 - 1.05 [facility] Comment on above: Performed By: #### R ENAL #### [facility] [address] [place] [address] eGFR FEMALE >90 Normal >90 [facility] Comment on above: Result Comment: CALC ULATIONS OF ESTIMATED GFR ARE PERFORMED USING THE 2020 CKD-EPI STUDY REFIT EQUATION WITHOUT THE RACE VARIABLE FOR THE IDMS-TRACEABLE CREATININE METHODS. https://jasn.asnjournals.org/content/early/ASN.627 6859591 Performed By: #### R ENAL #### [facility] [address] [place] [address] Glucose [Mass/Vol] 100 mg/dL High 74 - 99 [facility] Comment on above: Performed By: #### R ENAL #### [facility] [address] [place] [address] HCO3 (Bld) [Moles/Vol] 27 mmol/L Normal 21 - 32 [facility] Comment on above: Performed By: #### R ENAL #### [facility] [address] [place] [address] Potassium [Moles/Vol] 3.8 mmol/L Normal 3.5 - 5.3 [facility] Comment on above: Performed By: #### R ENAL #### [facility] [address] [place] [address] Protein [Mass/Vol] 8.2 g/dL Normal 6.4 - 8.2 [facility] Comment on above: Performed By: #### R ENAL #### [facility] [address] [place] [address] Sodium [Moles/Vol] 140 mmol/L Normal 136 - 145 [facility] Comment on above: Performed By: #### R ENAL #### [facility] [address] [place] [address] Urea nitrogen [Mass/Vol] 5 mg/dL Low 6 - 23 [facility] Comment on above: Performed By: #### R ENAL #### [facility] [address] [place] [address] Consult - Neuro-Surgeryon Consult - Neuro-Surgery Service: [...] Updated: 07-Jun-2022 11:22 by Perez Carlisle) Normal [facility] NR CT L-SPINE WO CONTRASTon 06-07-[address] L-SPINE WO CONTRAST Patient Name: MORALES LEE STUDY: CT T-SPINE WO CONTRAST; CT L-SPINE WO CONTRAST 06/06/2022 11:03 pm INDICATION: ok, Lie Flat: Yes COMPARISON: 09/20/2021 MRI and 09/18/2021 CT ACCESSION NUMBER(S): [id number]; [id number] ORDERING CLINICIAN: CANDICE PEREZ TECHNIQUE: Axial CT [...] osseous spinal canal or neural foraminal stenosis. [id number] spinal canal and neural foraminal narrowing described [...] Electronically signed by: CELI MCNEIL DO Normal [facility] NR CT T-SPINE WO CONTRASTon 06-07-[address] T-SPINE WO CONTRAST Patient Name: MORALES LEE STUDY: CT T-SPINE WO CONTRAST; CT L-SPINE WO CONTRAST 06/06/2022 11:03 pm INDICATION: ok, Lie Flat: Yes COMPARISON: 09/20/2021 MRI and 09/18/2021 CT ACCESSION NUMBER(S): [id number]; [id number] ORDERING CLINICIAN: CANDICE PEREZ TECHNIQUE: Axial CT [...] osseous spinal canal or neural foraminal stenosis. Wufw-[id number] spinal canal and neural foraminal narrowing described [...] view. Electronically signed by: DO Andrei TOURE [facility] Provider Note - ED Care Diaz casiseon 06-07-2022 Provider Note - ED Care Transition [...] 21-Jun-2022 06:18 by Yony Aguirre () Normal [facility] Provider Note - ED v3on [...] - M21.37 (more content not included)... Normal [facility] Triage - EDon 06-06-2022 Triage [...] obeys commands Best Verbal Response: (V5) oriented [place] Score: 15 Mask applied: yes Patient has [...] 06-Jun-2022 19:07 by Meghan Chavez (MERA) Normal [facility] CULTURE URINEon 05-10-2022 CULTURE URINE [...] F Trimethoprim/Sulfamethoxa zole <=20 S F Normal [facility] Comment on above: Performed By: #### U MICRO, ERUR #### [facility] [address] [place] [address] Dr. Alfredo Lizama CBC AUTO DIFFon 05-07-2022 BASO # 0.1 103/ul Normal 0.0-0.1 [facility] Comment on above: Performed By: #### U MICRO, ERUR #### [facility] [address] [place] [address] Dr. Alfredo Lizama Basophils/100 WBC (Bld) 0.5 % Normal 0.2-2.0 [facility] Comment on above: Performed By: #### U MICRO, ERUR #### [facility] [address] [place] [address] Dr. Alfredo Lizama EO # 0.4 103/ul Normal 0.0-0.7 [facility] Comment on above: Performed By: #### U MICRO, ERUR #### [facility] [address] [place] [address] Dr. Alfredo Lizama Eosinophils/100 WBC (Bld) 3.5 % Normal 0.9-7.0 [facility] Comment on above: Performed By: #### U MICRO, ERUR #### [facility] [address] [place] [address] Dr. Alfredo Lizama Erythrocyte distribution width (RBC) [Ratio] 13.2 % Normal 11.0-15.0 [facility] Comment on above: Performed By: #### U MICRO, ERUR #### [facility] [address] [place] [address] Dr. Alfredo Lizama Hematocrit (Bld) [Volume fraction] 44.0 % Normal 36.0-48.0 [facility] Comment on above: Performed By: #### U MICRO, ERUR #### [facility] [address] [address] [address] Alfredo Lizama Hemoglobin (Bld) [Mass/Vol] 14.8 g/dL Normal 12.0-16.0 [facility] Comment on above: Performed By: #### U MICRO, ERUR #### [facility] [address] [place] [address] Dr. Alfredo Lizama IG # 0.03 10e3/ul Normal 0.00-0.03 [facility] Comment on above: Performed By: #### U MICRO, ERUR #### [facility] [address] [place] [address] Dr. Alfredo Lizama IG % 0.2 % Normal 0.0-0.5 [facility] Comment on above: Performed By: #### U MICRO, ERUR #### [facility] [address] [place] [address] Dr. Alfredo Lizama LYMPH # 3.8 103/ul Normal 1.2-3.8 [facility] Comment on above: Performed By: #### U MICRO, ERUR #### [facility] [address] [place] [address] Dr. Alfredo Lizama Lymphocytes/100 WBC (Bld) 31.3 % Normal 20.5-60.0 [facility] Comment on above: Performed By: #### U MICRO, ERUR #### [facility] [address] [place] [address] Dr. Alfredo Lizama MANUAL DIFF REQ NO Normal [facility] Comment on above: Performed By: #### U MICRO, ERUR #### [facility] [address] [place] [address] Dr. Alfredo Lizama MCH (RBC) [Entitic mass] 28.8 pg Normal 26.7-34.0 [facility] Comment on above: Performed By: #### U MICRO, ERUR #### [facility] [address] [place] [address] Dr. Alfredo Lizama MCHC (RBC) [Mass/Vol] 33.6 g/dL Normal 29.9-35.2 [facility] Comment on above: Performed By: #### U MICRO, ERUR #### [facility] [address] [place] [address] Dr. Alfredo Lizama MCV (RBC) [Entitic vol] 85.8 fL Normal 81.0-99.0 [facility] Comment on above: Performed By: #### U MICRO, ERUR #### [facility] [address] [place] [address] Dr. Alfredo Lizama MONO # 0.7 103/ul Normal 0.3-0.8 [facility] Comment on above: Performed By: #### U MICRO, ERUR #### [facility] [address] [place] [address] Dr. Alfredo Lizama Monocytes/100 WBC (Bld) 5.8 % Normal 1.7-12.0 [facility] Comment on above: Performed By: #### U MICRO, ERUR #### [facility] [address] [place] [address] Dr. Alfredo Lizama NEUT # 7.1 103/ul Critically high 1.4-6.5 [facility] Comment on above: Performed By: #### U MICRO, ERUR #### [facility] [address] [place] [address] Dr. Alfredo Lizama Neutrophils/100 WBC (Bld) 58.7 % Normal 43.0-75.0 [facility] Comment on above: Performed By: #### U MICRO, ERUR #### [facility] [address] [place] [address] Dr. Alfredo Lizama Platelet mean volume (Bld) [Entitic vol] 9.6 fL Normal 9.5-13.5 [facility] Comment on above: Performed By: #### U MICRO, ERUR #### [facility] [address] [place] [address] Dr. Alfredo Lizama PLT 269 103/ul Normal 150-450 [facility] Comment on above: Performed By: #### U MICRO, ERUR #### [facility] [address] [place] [address] Dr. Alfredo Lizama RBC 5.13 106/ul Normal 4.20-5.40 [facility] Comment on above: Performed By: #### U MICRO, ERUR #### [facility] [address] [place], [place] [address] Dr. Alfredo Lizama WBC 12.2 103/ul Critically high 4.0-11.0 [facility] Comment on above: Performed By: #### U MICRO, ERUR #### [facility] [address] [place], [place] [address] ABD/PELV W CONon [...] KORIN STANLEY Date: 2022-05-07 14:00 Normal [facility] ER URINE PROFILEon 2 Bilirubin Ql (U) Negative Normal NEGATIVE [facility] Comment on above: Performed By: #### U MICRO, ERUR #### [facility] [address] [place] [address] Dr. Alfredo Lizama Clarity (U) CLOUDY Abnormal CLEAR [facility] Comment on above: Performed By: #### U MICRO, ERUR #### [facility] [address] [place] [address] Dr. Alfredo Lizama Color (U) LT. YELLOW Normal YELLOW [facility] Comment on above: Performed By: #### U MICRO, ERUR #### [facility] [address] [place] [address] Dr. Alfredo Lizama ERUBYROND A micrscopic examina tion will be performed if indicated. Normal [facility] Comment on above: Performed By: #### U MICRO, ERUR #### [facility] [address] [place] [address] Dr. Alfredo Lizama Glucose Ql (U) Negative Normal NEGATIVE [facility] Comment on above: Performed By: #### U MICRO, ERUR #### [facility] [address] [place] [address] Dr. Alfredo Lizama Hemoglobin Ql (U) LARGE Abnormal NEGATIVE [facility] Comment on above: Performed By: #### U MICRO, ERUR #### [facility] [address] [place] [address] Dr. Alfredo Lizama Ketones Ql (U) Negative Normal NEGATIVE [facility] Comment on above: Performed By: #### U MICRO, ERUR #### [facility] [address] [place] [address] Dr. Alfredo Lizama LEUKOCYTES MODERATE Abnormal NEGATIVE [facility] Comment on above: Performed By: #### U MICRO, ERUR #### [facility] [address] [address] [address] Alfredo Lizama Nitrite Ql (U) Positive Abnormal NEGATIVE [facility] Comment on above: Performed By: #### U MICRO, ERUR #### [facility] [address] [place] [address] Dr. Alfredo Lizama pH (U) 8.5 [pH] Normal 5-9 [facility] Comment on above: Performed By: #### U MICRO, ERUR #### [facility] [address] [place] [address] Dr. Alfredo Lizama Protein (U) [Mass/Vol] 100 mg/dL Abnormal NEGAT LATISHA/ TRACE [facility] Comment on above: Performed By: #### U MICRO, ERUR #### [facility] [address] [place] [address] Dr. Alfredo Lizama SPEC GRAVITY 1.015 Normal 1.005-<=1. 025 [facility] Comment on above: Performed By: #### U MICRO, ERUR #### [facility] [address] [place] [address] Dr. Alfredo Lizama UR MICRO IND INDICATED Normal [facility] Comment on above: Performed By: #### U MICRO, ERUR #### [facility] [address] [place] [address] Dr. Alfredo Lizama Urobilinogen Qn (U) 1.0 {Tesha'U}/dL Normal 0.2 - 1. 0 [facility] Comment on above: Performed By: #### U MICRO, ERUR #### [facility] [address] [place] [address] Dr. Alfredo Lizama PROF CHEM 8 (BAS METB)on Anion gap [Moles/Vol] 12.0 mmol/L Normal [facility] Comment on above: Performed By: #### U MICRO, ERUR #### [facility] [address] [address] [address] Alfredo Lizama Calcium [Mass/Vol] 8.6 mg/dL Normal 8.5-10.1 [facility] Comment on above: Performed By: #### U MICRO, ERUR #### [facility] [address] [place] [address] Dr. Alfredo Lizama Chloride [Moles/Vol] 101 mmol/L Normal 98-107 [facility] Comment on above: Performed By: #### U MICRO, ERUR #### [facility] [address] [place] [address] Dr. Alfredo Lizama CO2 [Moles/Vol] 28.0 mmol/L Normal 21.0-32.0 [facility] Comment on above: Performed By: #### U MICRO, ERUR #### [facility] [address] [place] [address] Dr. Aflredo Liazma Creatinine [Mass/Vol] 0.77 mg/dL Normal 0.55-1.02 [facility] Comment on above: Performed By: #### U MICRO, ERUR #### [facility] [address] [place] [address] Dr. Alfredo Lizama EGFR-AF BOTSWANAN >60 Normal >=60 [facility] Comment on above: Performed By: #### U MICRO, ERUR #### [facility] [address] [place] [address] Dr. Alfredo Lizama EGFR-NON AF BOTSWANAN >60 Normal >=60 [facility] Comment on above: Performed By: #### U MICRO, ERUR #### [facility] [address] [place] [address] Dr. Alfredo Lizama Glucose [Mass/Vol] 96 mg/dL Normal 74-106 [facility] Comment on above: Performed By: #### U MICRO, ERUR #### [facility] [address] [place] [address] Dr. Alfredo Lizama Potassium [Moles/Vol] 4.0 mmol/L Normal 3.5-5.1 [facility] Comment on above: Performed By: #### U MICRO, ERUR #### [facility] [address] [address] [address] Alfredo Lizama Sodium [Moles/Vol] 137 mmol/L Normal 136-145 [facility] Comment on above: Performed By: #### U MICRO, ERUR #### [facility] [address] [place] [address] Dr. Alfredo Lizama Urea nitrogen [Mass/Vol] 7.0 mg/dL Normal 7.0-18.0 [facility] Comment on above: Performed By: #### U MICRO, ERUR #### [facility] [address] [place] [address] Dr. Alfredo Lizama Urea nitrogen/Creatinine [Mass ratio] 9.1 mg/mg Normal [facility] Comment on above: Performed By: #### U MICRO, ERUR #### [facility] [address] [place] [address] Dr. Alfredo Lizama URINE MICROSCOPIC ONLYon BACTERIA MODERATE Abnormal NONE SEEN [facility] Comment on above: Performed By: #### U MICRO, ERUR #### [facility] [address] [place] [address] Dr. Alfredo Lizama Bacteria identified Cx Nom (U) INDICATED Normal [facility] Comment on above: Performed By: #### U MICRO, ERUR #### [facility] [address] [place] [address] Dr. Alfredo Lizama CAST NONE SEEN Normal NONE SEEN [facility] Comment on above: Performed By: #### U MICRO, ERUR #### [facility] [address] [place] [address] Dr. Alfredo Lizama Crystals LM Nom (Urine sed) NONE SEEN Normal NONE SEEN [facility] Comment on above: Performed By: #### U MICRO, ERUR #### [facility] [address] [place] [address] Dr. Alfredo Lizama Epithelial cells LM Ql (Urine sed) FEW Abnormal NONE SEEN /RARE [facility] Comment on above: Performed By: #### U MICRO, ERUR #### [facility] [address] [address] [address] Alfredo Lizama MUCOUS NONE SEEN Normal NONE SEEN [facility] Comment on above: Performed By: #### U MICRO, ERUR #### [facility] [address] [place] [address] Dr. Alfredo Lizama RBC 2-5 Abnormal 0-2 [facility] Comment on above: Performed By: #### U MICRO, ERUR #### [facility] [address] [address] [address] Alfredo Lizama WBC 10-20 Abnormal NONE SEEN [facility] Comment on above: Performed By: #### U MICRO, ERUR #### [facility] [address] [place] [address] Dr. Alfredo Lizama CULTURE URINEon 04-10-2022 CULTURE [...] Trimethoprim/Sulfamethoxa zole <=20 S F Normal [facility] Comment on above: Performed By: #### U MICRO, ERUR #### [facility] [address] [address] [address] Alferdo SANDY URINE PROFILEon 2 Bilirubin Ql (U) Negative Normal NEGATIVE [facility] Comment on above: Performed By: #### U MICRO, ERUR #### [facility] [address] [address] [address] Alfredo Lizama Clarity (U) CLOUDY Abnormal CLEAR [facility] Comment on above: Performed By: #### U MICRO, ERUR #### [facility] [address] [address] [address] Alfredo Lizama Color (U) YELLOW Normal YELLOW [facility] Comment on above: Performed By: #### U MICRO, ERUR #### [facility] [address] [place] [address] Dr. Alfredo Lizama ERUAHD A micrscopic examina tion will be performed if indicated. Normal [facility] Comment on above: Performed By: #### U MICRO, ERUR #### [facility] [address] [address] [address] Alfredo Lizama Glucose Ql (U) Negative Normal NEGATIVE [facility] Comment on above: Performed By: #### U MICRO, ERUR #### [facility] [address] [place] [address] Dr. Alfredo Lizama Hemoglobin Ql (U) SMALL Abnormal NEGATIVE [facility] Comment on above: Performed By: #### U MICRO, ERUR #### [facility] [address] [address] [address] Alfredo Lizama Ketones Ql (U) Negative Normal NEGATIVE [facility] Comment on above: Performed By: #### U MICRO, ERUR #### [facility] [address] [address] [address] Alfredo Lizama LEUKOCYTES LARGE Abnormal NEGATIVE [facility] Comment on above: Performed By: #### U MICRO, ERUR #### [facility] [address] [address] [address] Alfredo Lizama Nitrite Ql (U) Negative Normal NEGATIVE [facility] Comment on above: Performed By: #### U MICRO, ERUR #### [facility] [address] [place] [address] Dr. Alfredo Lizama pH (U) 7.0 [pH] Normal 5-9 [facility] Comment on above: Performed By: #### U MICRO, ERUR #### [facility] [address] [place] [address] Dr. Alfredo Lizama SPEC GRAVITY <=1.005 Abnormal 1.005-<=1. 025 [facility] Comment on above: Performed By: #### U MICRO, ERUR #### [facility] [address] [place] [address] Dr. Alfredo Lizama UA PROTEIN Negative Normal NEGATIVE/ TRACE [facility] Comment on above: Performed By: #### U MICRO, ERUR #### [facility] [address] [place] [address] Dr. Alfredo Lizama UR MICRO IND INDICATED Normal [facility] Comment on above: Performed By: #### U MICRO, ERUR #### [facility] [address] [place] [address] Dr. Alfredo Lizama Urobilinogen Qn (U) 0.2 {Tesha'U}/dL Normal 0.2 - 1. 0 [facility] Comment on above: Performed By: #### U MICRO, ERUR #### [facility] [address] [place] [address] Dr. Alfredo Lizama URINE MICROSCOPIC ONLYon BACTERIA MODERATE Abnormal NONE SEEN [facility] Comment on above: Performed By: #### U MICRO, ERUR #### [facility] [address] [place] [address] Dr. Alfredo Lizama Bacteria identified Cx Nom (U) INDICATED Normal [facility] Comment on above: Performed By: #### U MICRO, ERUR #### [facility] [address] [place] [address] Dr. Alfredo Lizama CAST NONE SEEN Normal NONE SEEN [facility] Comment on above: Performed By: #### U MICRO, ERUR #### [facility] [address] [address] [address] Alfredo Lizama Crystals LM Nom (Urine sed) NONE SEEN Normal NONE SEEN [facility] Comment on above: Performed By: #### U MICRO, ERUR #### [facility] [address] [address] [address] Alfredo Lizama Epithelial cells LM Ql (Urine sed) FEW Abnormal NONE SEEN /RARE [facility] Comment on above: Performed By: #### U MICRO, ERUR #### [facility] [address] [address] [address] Alfredo Lizama MUCOUS NONE SEEN Normal NONE SEEN [facility] Comment on above: Performed By: #### U MICRO, ERUR #### [facility] [address] [address] [address] Alfredo Lizama RBC 5-10 Abnormal 0-2 [facility] Comment on above: Performed By: #### U MICRO, ERUR #### [facility] [address] [address] [address] Alfredo Lizama WBC (U) [#/Vol] /uL Abnormal NONE SEEN [facility] Comment on above: Performed By: #### U MICRO, ERUR #### [facility] [address] [address] [address] Alfredo Lizama Basic Metabolic Panelon 11-03 Calcium [Mass/Vol] 8.9 mg/dL Normal 8.2-10.2 [facility] Comment on above: Performed By: #### C BC, CMP, PAB #### [facility] [address] [place] [address] [place] Chloride [Moles/Vol] 101 mmol/L Normal 95-114 [facility] Comment on above: Performed By: #### C BC, CMP, PAB #### [facility] [address] [place] [address] [place] CO2 [Moles/Vol] 29.0 mmol/L Normal 22.0-30.0 [facility] Comment on above: Performed By: #### C BC, CMP, PAB #### [facility] [address] Creatinine [Mass/Vol] 0.48 mg/dL Normal 0.44-1.03 [facility] Comment on above: Performed By: #### C DARIUS PATEL, PAB #### [address] Creatinine Clr Calc Pharmacy 150.29 [facility] Comment on above: Result Comment: PERF ORMED BY: [place] [address] PATHOLOGIST SOFT BOARDER HUY COX M.D. Performed By: #### C DARIUS PATEL, PAB #### [facility] [address] Estimated GFR ( July > 60 [facility] Comment on above: Result Comment: GFR estimated reference range: According to KDOQI guidelines, <60 ml/min/1.73m2 is sufficient to diagnose a patient with chronic kidney disease. Performed By: #### C DARIUS PATEL, PAB #### [address] Estimated GFR (Non- Am > 60 [facility] Comment on above: Performed By: #### C DARIUS PATEL, PAB #### [address] Glucose [Mass/Vol] 111 mg/dL High 70-100 [facility] Comment on above: Result Comment: [place] Glucose Reference Range is dependent on time and content of last meal. Glucose of more than 200 mg/dL in a nonstressed, ambulatory subject supports the diagnosis of Diabetes Mellitus. ADA recommended reference range Performed By: #### C DARIUS PATEL, PAB #### [facility] [address] Potassium [Moles/Vol] 3.6 mmol/L Normal 3.5-5.1 [facility] Comment on above: Performed By: #### C DARIUS PATEL, PAB #### [facility] [address] Sodium [Moles/Vol] 138 mmol/L Normal 136-146 [facility] Comment on above: Performed By: #### C BC, CMP, PAB #### [facility] [address] Urea nitrogen [Mass/Vol] 10 mg/dL Normal 9- [facility] Comment on above: Performed By: #### C BC, CMP, PAB #### [facility] [address] Complete Blood Count Auto Di ffon 11-19-2021 Basophils (Bld) [#/Vol] 0.1 10*3/uL Normal 0.0-0.2 [facility] Comment on above: Result Comment: PERF ORMED BY: [place] [address] PATHOLOGIST SOFT BOARDER HUY COX M.D. Performed By: #### C BC, CMP, PAB #### [address] Basophils/100 WBC (Bld) 0.8 % Normal . [facility] Comment on above: Performed By: #### C BC, CMP, PAB #### [facility] [address] [place] [address] [place] Eosinophils (Bld) [#/Vol] 0.4 10*3/uL Normal 0.0-0.45 [facility] Comment on above: Performed By: #### C BC, CMP, PAB #### [place] [address] [place] Eosinophils/100 WBC (Bld) 5.8 % Normal . [facility] Comment on above: Performed By: #### C BC, CMP, PAB #### [facility] [address] Erythrocyte distribution width (RBC) [Ratio] 14.3 % Normal 11.9-15.3 [facility] Comment on above: Performed By: #### C BC, CMP, PAB #### [facility] [address] Hematocrit (Bld) [Volume fraction] 36.0 % Normal 34.0-46.4 [facility] Comment on above: Performed By: #### C BC, CMP, PAB #### [facility] [address] [place] [address] [place] Hemoglobin (Bld) [Mass/Vol] 11.9 g/dL Normal 11.8-15.4 [facility] Comment on above: Performed By: #### C BC, CMP, PAB #### [facility] [address] Lymphocytes (Bld) [#/Vol] 2.7 10*3/uL Normal 1.00-4.8 [facility] Comment on above: Performed By: #### C BC, CMP, PAB #### [facility] [address] Lymphocytes/100 WBC (Bld) 37.6 % Normal . [facility] Comment on above: Performed By: #### C BC, CMP, PAB #### [facility] [address] MCH (RBC) [Entitic mass] 28.1 pg Normal 24.7-34.3 [facility] Comment on above: Performed By: #### C BC, CMP, PAB #### [facility] [address] [place] [address] [place] MCV (RBC) [Entitic vol] 85.3 fL Normal 80-100 [facility] Comment on above: Performed By: #### C BC, CMP, PAB #### [facility] [address] Mean Corpuscular HGB Conc 32.9 g/dL Normal 32.0-35.0 [facility] Comment on above: Performed By: #### C BC, CMP, PAB #### [facility] [address] [place] [address] [place] Monocytes (Bld) [#/Vol] 0.4 10*3/uL Normal 0.0-0.8 [facility] Comment on above: Performed By: #### C BC, CMP, PAB #### [facility] [address] [place] [address] [place] Monocytes/100 WBC (Bld) 5.2 % Normal . [facility] Comment on above: Performed By: #### C BC, CMP, PAB #### [facility] [address] [place] [address] [place] Neutrophils (Bld) [#/Vol] 3.7 10*3/uL Normal 1.8-7.7 [facility] Comment on above: Performed By: #### C BC, CMP, PAB #### [facility] [address] Neutrophils/100 WBC (Bld) 50.6 % Normal . [facility] Comment on above: Performed By: #### C BC, CMP, PAB #### [facility] [address] Nucleated RBC/100 WBC (Bld) [Ratio] 0.0 % Normal 0-0.5 [facility] Comment on above: Performed By: #### C BC, CMP, PAB #### [facility] [address] Platelet mean volume (Bld) [Entitic vol] 7.6 fL Normal 6.3-10.7 [facility] Comment on above: Performed By: #### C BC, CMP, PAB #### [facility] [address] Platelets (Bld) [#/Vol] 252 10*3/uL Normal 150-450 [facility] Comment on above: Performed By: #### C BC, CMP, PAB #### [facility] [address] [place] [address] [place] RBC (Bld) [#/Vol] 4.22 10*6/uL Normal 3.60-5.00 [facility] Comment on above: Performed By: #### C BC, CMP, PAB #### [facility] [address] [place] [address] [place] WBC (Bld) [#/Vol] 7.2 10*3/uL Normal 4.5-11.0 [facility] Comment on above: Performed By: #### C BC, CMP, PAB #### [facility] [address] [place] [address] [place] Ammoniaon 11-11-2021 Ammonia (P) [Moles/Vol] 26 umol/L Normal 11-35 [facility] Comment on above: Result Comment: PERF ORMED BY: [place] [address] PATHOLOGIST SOFT BOARDER HUY COX M.D. Performed By: #### C BC, CMP, PAB #### [address] Hepatic Panelon 11-11-2021 Albumin [Mass/Vol] 3.0 g/dL Low 3.2-5.5 [facility] Comment on above: Performed By: #### C BC, CMP, PAB #### [address] Albumin/Globulin [Mass ratio] 1.0 {ratio} Normal [facility] Comment on above: Performed By: #### C BC, CMP, PAB #### [address] ALP [Catalytic activity/Vol] 187 U/L High 32-92 [facility] Comment on above: Result Comment: PERF ORMED BY: [place] [address] PATHOLOGIST SOFT BOARDER HUY COX M.D. Performed By: #### C BC, CMP, PAB #### [address] ALT [Catalytic activity/Vol] 54 U/L Normal 10-60 [facility] Comment on above: Performed By: #### C BC, CMP, PAB #### [address] AST [Catalytic activity/Vol] 39 U/L Normal 10-42 [facility] Comment on above: Performed By: #### C BC, CMP, PAB #### [address] Bilirubin [Mass/Vol] 0.3 mg/dL Normal 0.3-1.2 [facility] Comment on above: Performed By: #### C BC, CMP, PAB #### [facility] [address] [place] [address] Bilirubin,Indirect Not performed Normal [facility] Comment on above: Performed By: #### C BC, CMP, PAB #### [facility] [address] Bilirubin.indirect [Mass/Vol] mg/dL Normal 0.0-0.4 [facility] Comment on above: Performed By: #### C BC, CMP, PAB #### [facility] [address] [place] [address] Globulin (S) [Mass/Vol] 3.0 g/dL Normal [facility] Comment on above: Performed By: #### C BC, CMP, PAB #### [address] Protein [Mass/Vol] 6.0 g/dL Low 6.1-7.9 [facility] Comment on above: Performed By: #### C BC, CMP, PAB #### [address] Hepatitis Acute Panelon 03-0 HBsAg Screen Negative Normal Negative [facility] Comment on above: Performed By: #### C BC, CMP, PAB #### [address] Hepatitis A Antibody IgM Negative Normal Negative [facility] Comment on above: Performed By: #### C BC, CMP, PAB #### [facility] [address] [place] [address] Hepatitis B Core Antibody IgM Negative Normal Negative [facility] Comment on above: Performed By: #### C BC, CMP, PAB #### [facility] [address] [place] [address] Hepatitis C Virus Antibody 0.2 Normal 0.0-0.9 [facility] Comment on above: Performed By: #### C BC, CMP, PAB #### [facility] [address] [place] [address] Interpretation Hepatitis C Normal . [facility] Comment on above: Result Comment: Dov chun Not infected with HCV, unless recent infection is suspected or other evidence exists to indicate HCV infection. Performed at: - [facility] [address] [id number] [employer] Operator: Pedro Luis José PhD, Phone: [phone] PERFORMED BY: [place] [address] PATHOLOGIST SOFT BOARDER HUY COX M.D. Performed By: #### C BC, CMP, PAB #### [address] [place] liveron 11-11-2021 liver [facility] [address] [place] [address] Ultrasound Report Signed Patient: Morales Lee MR#: [id number] : 1975 Acct:[id number] Age/Sex: 46 / F ADM Date: 10/29/21 Loc: Room: [address] [place] [address] Type: ADM IN Attending Dr: Richard Acevedo [...] Alexandru Pond M.D.11/11/2021 10:23 AM Dictation Location: [place] [address] Tech: Ermelinda Diaz Transcribed By: CORTNEY 11/11/21 1023 Dictated By: Alexandru Pond DO 11/11/21 1018 Signed By: 11/11/21 1023 Normal [facility] Complete Blood Count Auto Di ffon 11-10-2021 Basophils (Bld) [#/Vol] 0.1 10*3/uL Normal 0.0-0.2 [facility] Comment on above: Result Comment: PERF ORMED BY: [place] [address] PATHOLOGIST SOFT BOARDER HUY COX M.D. Performed By: #### C BC #### [address] Basophils/100 WBC (Bld) 1.2 % Normal . [facility] Comment on above: Performed By: #### C BC #### [address] Eosinophils (Bld) [#/Vol] 0.3 10*3/uL Normal 0.0-0.45 [facility] Comment on above: Performed By: #### C BC #### [address] Eosinophils/100 WBC (Bld) 5.9 % Normal . [facility] Comment on above: Performed By: #### C BC #### [address] Erythrocyte distribution width (RBC) [Ratio] 14.2 % Normal 11.9-15.3 [facility] Comment on above: Performed By: #### C BC #### [address] [address] Hematocrit (Bld) [Volume fraction] 37.1 % Normal 34.0-46.4 [facility] Comment on above: Performed By: #### C BC #### [address] Hemoglobin (Bld) [Mass/Vol] 12.3 g/dL Normal 11.8-15.4 [facility] Comment on above: Performed By: #### C BC #### [address] Lymphocytes (Bld) [#/Vol] 2.0 10*3/uL Normal 1.00-4.8 [facility] Comment on above: Performed By: #### C BC #### [address] Lymphocytes/100 WBC (Bld) 36.5 % Normal . [facility] Comment on above: Performed By: #### C BC #### [address] MCH (RBC) [Entitic mass] 28.6 pg Normal 24.7-34.3 [facility] Comment on above: Performed By: #### C BC #### [address] MCV (RBC) [Entitic vol] 86.5 fL Normal 80-100 [facility] Comment on above: Performed By: #### C BC #### [address] Mean Corpuscular HGB Conc 33.1 g/dL Normal 32.0-35.0 [facility] Comment on above: Performed By: #### C BC #### [address] Monocytes (Bld) [#/Vol] 0.3 10*3/uL Normal 0.0-0.8 [facility] Comment on above: Performed By: #### C BC #### [address] Monocytes/100 WBC (Bld) 5.3 % Normal . [facility] Comment on above: Performed By: #### C BC #### [place] [address] [place] Neutrophils (Bld) [#/Vol] 2.8 10*3/uL Normal 1.8-7.7 [facility] Comment on above: Performed By: #### C BC #### [place] [address] [place] Neutrophils/100 WBC (Bld) 51.1 % Normal . [facility] Comment on above: Performed By: #### C BC #### [address] Nucleated RBC/100 WBC (Bld) [Ratio] 0.1 % Normal 0-0.5 [facility] Comment on above: Performed By: #### C BC #### [address] Platelet mean volume (Bld) [Entitic vol] 7.8 fL Normal 6.3-10.7 [facility] Comment on above: Performed By: #### C BC #### [address] Platelets (Bld) [#/Vol] 214 10*3/uL Normal 150-450 [facility] Comment on above: Performed By: #### C BC #### [address] RBC (Bld) [#/Vol] 4.28 10*6/uL Normal 3.60-5.00 [facility] Comment on above: Performed By: #### C BC #### [address] WBC (Bld) [#/Vol] 5.4 10*3/uL Normal 4.5-11.0 [facility] Comment on above: Performed By: #### C BC #### [address] Comprehensive Metabolic Pane shree 11-10-2021 Albumin [Mass/Vol] 2.9 g/dL Low 3.2-5.5 [facility] Comment on above: Performed By: #### C BC, CMP, PAB #### [address] Albumin/Globulin [Mass ratio] 0.9 {ratio} Normal [facility] Comment on above: Performed By: #### C BC, CMP, PAB #### [address] ALP [Catalytic activity/Vol] 201 U/L High 32-92 [facility] Comment on above: Performed By: #### C BC CMP, PAB #### [facility] [address] ALT [Catalytic activity/Vol] 67 U/L High 10-60 [facility] Comment on above: Performed By: #### C BC, CMP, PAB #### [facility] [address] AST [Catalytic activity/Vol] 66 U/L High 10-42 [facility] Comment on above: Performed By: #### C BC, CMP, PAB #### [facility] [address] Bilirubin [Mass/Vol] 0.4 mg/dL Normal 0.3-1.2 [facility] Comment on above: Performed By: #### C BC, CMP, PAB #### [facility] [address] Calcium [Mass/Vol] 8.7 mg/dL Normal 8.2-10.2 [facility] Comment on above: Performed By: #### C BC CMP, PAB #### [facility] [address] Chloride [Moles/Vol] 100 mmol/L Normal 95-114 [facility] Comment on above: Performed By: #### C BC, CMP, PAB #### [facility] [address] CO2 [Moles/Vol] 26.4 mmol/L Normal 22.0-30.0 [facility] Comment on above: Performed By: #### C BC, CMP, PAB #### [facility] [address] [place] [address] [place] Creatinine [Mass/Vol] 0.50 mg/dL Normal 0.44-1.03 [facility] Comment on above: Performed By: #### C BC, CMP, PAB #### [facility] [address] [place] [address] [place] Creatinine Clr Calc Pharmacy 142.11 Normal [facility] Comment on above: Result Comment: PERF ORMED BY: [place] [address] PATHOLOGIST SOFT BOARDER HUY COX M.D. Performed By: #### C BC, CMP, PAB #### [address] Estimated GFR ( July > 60 [facility] Comment on above: Result Comment: GFR estimated reference range: According to KDOQI guidelines, <60 ml/min/1.73m2 is sufficient to diagnose a patient with chronic kidney disease. Performed By: #### C BC, CMP, PAB #### [address] Estimated GFR (Non- Am > 60 [facility] Comment on above: Performed By: #### C BC, CMP, PAB #### [address] Globulin (S) [Mass/Vol] 3.1 g/dL Normal [facility] Comment on above: Performed By: #### C BC, CMP, PAB #### [address] Glucose [Mass/Vol] 110 mg/dL High 70-100 [facility] Comment on above: Result Comment: [place] Glucose Reference Range is dependent on time and content of last meal. Glucose of more than 200 mg/dL in a nonstressed, ambulatory subject supports the diagnosis of Diabetes Mellitus. ADA recommended reference range Performed By: #### C BC, CMP, PAB #### [address] Potassium [Moles/Vol] 4.0 mmol/L Normal 3.5-5.1 [facility] Comment on above: Performed By: #### C BC, CMP, PAB #### [address] Protein [Mass/Vol] 6.0 g/dL Low 6.1-7.9 [facility] Comment on above: Performed By: #### C BC, CMP, PAB #### [facility] [address] [place] [id number] [place] Sodium [Moles/Vol] 136 mmol/L Normal 136-146 [facility] Comment on above: Performed By: #### C BC, CMP, PAB #### [facility] [address] [place] [id number] [place] Urea nitrogen [Mass/Vol] 8 mg/dL Low 9-23 [facility] Comment on above: Performed By: #### C BC, CMP, PAB #### [facility] [address] [place] [address] [place] Dipstick and Microscopicon 0 11-10-2021 Appearance (U) Turbid Critically abnormal Clear [facility] Comment on above: Order Comment: Name Collection Type:: Alvares Catheter Performed By: #### C BC, CMP, PAB #### [facility] [address] [place] [address] [place] Bacteria,Urine 3+ High None Seen [facility] Comment on above: Order Comment: Name Collection Type:: Alvares Catheter Performed By: #### C BC, CMP, PAB #### [facility] [address] [place] [address] [place] Bilirubin,Urine Negative Normal Negative [facility] Comment on above: Order Comment: Name Collection Type:: Alvares Catheter Performed By: #### C BC, CMP, PAB #### [facility] [address] [place] [phone] [place] Color (U) Yellow Normal Yellow [facility] Comment on above: Order Comment: Name Collection Type:: Alvares Catheter Performed By: #### C BC, CMP, PAB #### [facility] [address] [place] [phone] [place] Glucose Ql (U) Normal Normal Normal [facility] Comment on above: Order Comment: Name Collection Type:: Alvares Catheter Performed By: #### C BC, CMP, PAB #### [facility] [address] [place] [phone] [place] Hyaline Casts,Urine None Seen Normal 0-1 [facility] Comment on above: Order Comment: Name Collection Type:: Alvares Catheter Performed By: #### C BC, CMP, PAB #### [facility] [address] [place] [address] [place] Ketones Ql (U) Negative Normal Negative [facility] Comment on above: Order Comment: Name Collection Type:: Alvares Catheter Performed By: #### C BC, CMP, PAB #### [facility] [address] [place] [address] Leukocyte esterase Test strip Ql (U) 3+ High Negative [facility] Comment on above: Order Comment: Name Collection Type:: Alvares Catheter Performed By: #### C BC, CMP, PAB #### [address] Nitrite,Urine Positive High Negative [facility] Comment on above: Order Comment: Name Collection Type:: Alvares Catheter Performed By: #### C BC, CMP, PAB #### [address] Occult Blood,Urine 2+ High Negative [facility] Comment on above: Order Comment: Name Collection Type:: Alvares Catheter Result Comment: PERF ORMED BY: [place] [address] PATHOLOGIST SOFT BOARDER HUY COX M.D. Performed By: #### C BC, CMP, PAB #### [address] Other Casts,Urine None Seen Normal None Seen [facility] Comment on above: Order Comment: Name Collection Type:: Alvares Catheter Result Comment: PERF ORMED BY: [place] [address] PATHOLOGIST SOFT BOARDER HUY COX M.D. Performed By: #### C BC, CMP, PAB #### [facility] [address] [place] [address] [place] pH (U) 8.5 [pH] Normal 5.0-9.0 [facility] Comment on above: Order Comment: Name Collection Type:: Alvares Catheter Performed By: #### C BC, CMP, PAB #### [address] [address] [place] Protein,Urine Negative Normal Negative [facility] Comment on above: Order Comment: Name Collection Type:: Alvares Catheter Performed By: #### C BC, CMP, PAB #### [facility] [address] [place] [address] RBC,Urine 1-2 Normal 0-4 [facility] Comment on above: Order Comment: Name Collection Type:: Alvares Catheter Performed By: #### C BC, CMP, PAB #### [facility] [address] [place] [address] Specificy [place],Urine 1.006 Normal 1.00 1-1.03 0 [facility] Comment on above: Order Comment: Name Collection Type:: Alvares Catheter Performed By: #### C BC, CMP, PAB #### [facility] [address] [place] [address] Squamous Epithelial Cell,Urine 3-4 High 0-2 [facility] Comment on above: Order Comment: Name Collection Type:: Alvares Catheter Performed By: #### C BC, CMP, PAB #### [facility] [address] [place] [address] Triple Phosphate Crystal,Urine 2+ Normal [facility] Comment on above: Order Comment: Name Collection Type:: Alvares Catheter Performed By: #### C BC, CMP, PAB #### [facility] [address] [place] [address] Urobilinogen,Urine Normal Normal Normal [facility] Comment on above: Order Comment: Name Collection Type:: Alvares Catheter Performed By: #### C BC, CMP, PAB #### [facility] [address] [place] [address] [place] WBC,Urine 20-49 High 0-4 [facility] Comment on above: Order Comment: Name Collection Type:: Alvares Catheter Performed By: #### C BC, CMP, PAB #### [facility] [address] [place] [address] [place] Urine Cultureon 11-10-2021 Bacteria identified Cx Nom (U) ORGANISM: Providencia rettgeri (O:PRORET) [place] Count >100,000 Aerobic JOSE Charge (NUC86) SUSCEPTIBILITY [...] RESISTANT TO ALL B-LACTAM DRUGS. PERFORMED BY: [place] [address] PATHOLOGIST SOFT BOARDER HUY OCX M.D. [facility] Comment on above: Performed By: #### C BC, CMP, PAB #### [address] Basic Metabolic Panelon 03-0 Calcium [Mass/Vol] 8.7 mg/dL Normal 8.2-10.2 [facility] Comment on above: Performed By: #### B MP, CBC #### [address] Chloride [Moles/Vol] 102 mmol/L Normal 95-114 [facility] Comment on above: Performed By: #### B MP, CBC #### [address] CO2 [Moles/Vol] 25.5 mmol/L Normal 22.0-30.0 [facility] Comment on above: Performed By: #### B MP, CBC #### [address] Creatinine [Mass/Vol] 0.71 mg/dL Normal 0.44-1.03 [facility] Comment on above: Performed By: #### B MP, CBC #### [address] Creatinine Clr Calc Pharmacy 100.08 [facility] Comment on above: Result Comment: PERF ORMED BY: [place] [address] PATHOLOGIST SOFT BOARDER HUY COX M.D. Performed By: #### B MP, CBC #### [address] Estimated GFR ( July > 60 [facility] Comment on above: Result Comment: GFR estimated reference range: According to KDOQI guidelines, <60 ml/min/1.73m2 is sufficient to diagnose a patient with chronic kidney disease. Performed By: #### B MP, CBC #### [address] Estimated GFR (Non- Am > 60 [facility] Comment on above: Performed By: #### B MP, CBC #### [address] Glucose [Mass/Vol] 104 mg/dL High 70-100 [facility] Comment on above: Result Comment: [place] Glucose Reference Range is dependent on time and content of last meal. Glucose of more than 200 mg/dL in a nonstressed, ambulatory subject supports the diagnosis of Diabetes Mellitus. ADA recommended reference range Performed By: #### B MP, CBC #### [address] Potassium [Moles/Vol] 4.1 mmol/L Normal 3.5-5.1 [facility] Comment on above: Performed By: #### B MP, CBC #### [facility] [address] Sodium [Moles/Vol] 137 mmol/L Normal 136-146 [facility] Comment on above: Performed By: #### B MP, CBC #### [facility] [address] Urea nitrogen [Mass/Vol] 10 mg/dL Normal 9-23 [facility] Comment on above: Performed By: #### B MP, CBC #### [address] Complete Blood Count Auto Di ffon 11-06-2021 Basophils (Bld) [#/Vol] 0.1 10*3/uL Normal 0.0-0.2 [facility] Comment on above: Result Comment: PERF ORMED BY: [place] [address] PATHOLOGIST SOFT BOARDER HUY COX M.D. Performed By: #### B MP, CBC #### [address] Basophils/100 WBC (Bld) 0.8 % Normal . [facility] Comment on above: Performed By: #### B MP, CBC #### [address] Eosinophils (Bld) [#/Vol] 0.4 10*3/uL Normal 0.0-0.45 [facility] Comment on above: Performed By: #### B MP, CBC #### [address] Eosinophils/100 WBC (Bld) 5.5 % Normal . [facility] Comment on above: Performed By: #### B MP, CBC #### [address] Erythrocyte distribution width (RBC) [Ratio] 14.2 % Normal 11.9-15.3 [facility] Comment on above: Performed By: #### B MP, CBC #### [address] Hematocrit (Bld) [Volume fraction] 36.0 % Normal 34.0-46.4 [facility] Comment on above: Performed By: #### B MP, CBC #### [address] Hemoglobin (Bld) [Mass/Vol] 12.0 g/dL Normal 11.8-15.4 [facility] Comment on above: Performed By: #### B MP, CBC #### [address] Lymphocytes (Bld) [#/Vol] 2.4 10*3/uL Normal 1.00-4.8 [facility] Comment on above: Performed By: #### B MP, CBC #### [address] Lymphocytes/100 WBC (Bld) 35.2 % Normal . [facility] Comment on above: Performed By: #### B MP, CBC #### [address] MCH (RBC) [Entitic mass] 28.9 pg Normal 24.7-34.3 [facility] Comment on above: Performed By: #### B MP, CBC #### [address] MCV (RBC) [Entitic vol] 86.4 fL Normal 80-100 [facility] Comment on above: Performed By: #### B MP, CBC #### [address] Mean Corpuscular HGB Conc 33.4 g/dL Normal 32.0-35.0 [facility] Comment on above: Performed By: #### B MP, CBC #### [address] Monocytes (Bld) [#/Vol] 0.3 10*3/uL Normal 0.0-0.8 [facility] Comment on above: Performed By: #### B MP, CBC #### [place] [address] [place] Monocytes/100 WBC (Bld) 4.8 % Normal . [facility] Comment on above: Performed By: #### B MP, CBC #### [facility] [address] [place] [address] [place] Neutrophils (Bld) [#/Vol] 3.7 10*3/uL Normal 1.8-7.7 [facility] Comment on above: Performed By: #### B MP, CBC #### [facility] [address] Neutrophils/100 WBC (Bld) 53.7 % Normal . [facility] Comment on above: Performed By: #### B MP, CBC #### [facility] [address] Nucleated RBC/100 WBC (Bld) [Ratio] 0.0 % Normal 0-0.5 [facility] Comment on above: Performed By: #### B MP, CBC #### [facility] [address] Platelet mean volume (Bld) [Entitic vol] 8.2 fL Normal 6.3-10.7 [facility] Comment on above: Performed By: #### B MP, CBC #### [facility] [address] [place] [address] [place] Platelets (Bld) [#/Vol] 235 10*3/uL Normal 150-450 [facility] Comment on above: Performed By: #### B MP, CBC #### [facility] [address] [place] [address] [place] RBC (Bld) [#/Vol] 4.17 10*6/uL Normal 3.60-5.00 [facility] Comment on above: Performed By: #### B MP, CBC #### [facility] [address] [place] [address] [place] WBC (Bld) [#/Vol] 6.9 10*3/uL Normal 4.5-11.0 [facility] Comment on above: Performed By: #### B MP, CBC #### [facility] [address] US venous duplex LE BIon US venous duplex LE BI [facility] [employer] [address] [place] [address] Ultrasound Report Signed Patient: Morales Lee MR#: [id number] : 1975 Acct:[id number] Age/Sex: 46 / F ADM Date: 10/29/21 Loc: Room: [address] [place] [address] Type: ADM IN Attending Dr: Richard Acevedo MD Ordering Provider: Rcihard Acevedo MD Date of Service: 11/03/21 US/US [...] Carlos Neal MD11/04/2021 11:36 AM Dictation Location: [place] [address] Tech: Natalia Rivas Transcribed By: CORTNEY 11/04/21 1136 Dictated By: Juan Carlos Neal MD 11/04/21 1135 Signed By: 11/04/21 1136 Normal [facility] Complete Blood Count Auto Di ffon 10-30-2021 Basophils (Bld) [#/Vol] 0.0 10*3/uL Normal 0.0-0.2 [facility] Comment on above: Result Comment: PERF ORMED BY: [place] [address] PATHOLOGIST SOFT BOARDER HUY COX M.D. Performed By: #### C BC, CMP, PAB #### [address] Basophils/100 WBC (Bld) 0.6 % Normal . [facility] Comment on above: Performed By: #### C BC, CMP, PAB #### [facility] [address] Eosinophils (Bld) [#/Vol] 0.4 10*3/uL Normal 0.0-0.45 [facility] Comment on above: Performed By: #### C BC, CMP, PAB #### [facility] [address] [place] [address] [place] Eosinophils/100 WBC (Bld) 4.9 % Normal . [facility] Comment on above: Performed By: #### C BC, CMP, PAB #### [facility] [address] Erythrocyte distribution width (RBC) [Ratio] 14.3 % Normal 11.9-15.3 [facility] Comment on above: Performed By: #### C BC, CMP, PAB #### [address] Hematocrit (Bld) [Volume fraction] 36.1 % Normal 34.0-46.4 [facility] Comment on above: Performed By: #### C BC, CMP, PAB #### [address] Hemoglobin (Bld) [Mass/Vol] 12.1 g/dL Normal 11.8-15.4 [facility] Comment on above: Performed By: #### C BC, CMP, PAB #### [place] [address] [place] Lymphocytes (Bld) [#/Vol] 2.8 10*3/uL Normal 1.00-4.8 [facility] Comment on above: Performed By: #### C BC, CMP, PAB #### [place] [address] [place] Lymphocytes/100 WBC (Bld) 39.0 % Normal . [facility] Comment on above: Performed By: #### C BC, CMP, PAB #### [address] MCH (RBC) [Entitic mass] 28.7 pg Normal 24.7-34.3 [facility] Comment on above: Performed By: #### C BC, CMP, PAB #### [facility] [address] MCV (RBC) [Entitic vol] 85.7 fL Normal 80-100 [facility] Comment on above: Performed By: #### C BC, CMP, PAB #### [facility] [address] Mean Corpuscular HGB Conc 33.4 g/dL Normal 32.0-35.0 [facility] Comment on above: Performed By: #### C BC, CMP, PAB #### [address] Monocytes (Bld) [#/Vol] 0.4 10*3/uL Normal 0.0-0.8 [facility] Comment on above: Performed By: #### C BC, CMP, PAB #### [address] Monocytes/100 WBC (Bld) 5.2 % Normal . [facility] Comment on above: Performed By: #### C BC, CMP, PAB #### [address] Neutrophils (Bld) [#/Vol] 3.6 10*3/uL Normal 1.8-7.7 [facility] Comment on above: Performed By: #### C BC, CMP, PAB #### [place] [address] [place] Neutrophils/100 WBC (Bld) 50.3 % Normal . [facility] Comment on above: Performed By: #### C BC, CMP, PAB #### [place] [address] [place] Nucleated RBC/100 WBC (Bld) [Ratio] 0.0 % Normal 0-0.5 [facility] Comment on above: Performed By: #### C BC, CMP, PAB #### [place] [address] [place] Platelet mean volume (Bld) [Entitic vol] 8.1 fL Normal 6.3-10.7 [facility] Comment on above: Performed By: #### C BC, CMP, PAB #### [facility] [address] Platelets (Bld) [#/Vol] 261 10*3/uL Normal 150-450 [facility] Comment on above: Performed By: #### C BC, CMP, PAB #### [address] RBC (Bld) [#/Vol] 4.22 10*6/uL Normal 3.60-5.00 [facility] Comment on above: Performed By: #### C BC, CMP, PAB #### [address] WBC (Bld) [#/Vol] 7.2 10*3/uL Normal 4.5-11.0 [facility] Comment on above: Performed By: #### C BC, CMP, PAB #### [address] Comprehensive Metabolic Pane shree 10-30-2021 Albumin [Mass/Vol] 2.8 g/dL Low 3.2-5.5 [facility] Comment on above: Performed By: #### C BC, CMP, PAB #### [address] Albumin/Globulin [Mass ratio] 1.0 {ratio} Normal [facility] Comment on above: Performed By: #### C BC, CMP, PAB #### [address] ALP [Catalytic activity/Vol] 116 U/L High 32-92 [facility] Comment on above: Performed By: #### C BC, CMP, PAB #### [address] ALT [Catalytic activity/Vol] 20 U/L Normal 10-60 [facility] Comment on above: Performed By: #### C BC, CMP, PAB #### [facility] [address] [place] [id number] [facility] AST [Catalytic activity/Vol] 22 U/L Normal 10-42 [facility] Comment on above: Performed By: #### C BC CMP, PAB #### [facility] [address] [place] [id number] [facility] Bilirubin [Mass/Vol] 0.5 mg/dL Normal 0.3-1.2 [facility] Comment on above: Performed By: #### C BC CMP, PAB #### [facility] [address] Calcium [Mass/Vol] 8.7 mg/dL Normal 8.2-10.2 [facility] Comment on above: Performed By: #### C JORGE CMP, PAB #### [facility] [address] Chloride [Moles/Vol] 105 mmol/L Normal 95-114 [facility] Comment on above: Performed By: #### C BC CMP, PAB #### [facility] [address] [place] [address] [place] CO2 [Moles/Vol] 26.8 mmol/L Normal 22.0-30.0 [facility] Comment on above: Performed By: #### C JORGE CMP, PAB #### [facility] [address] [place] [id number] [place] Creatinine [Mass/Vol] 0.51 mg/dL Normal 0.44-1.03 [facility] Comment on above: Performed By: #### C BC CMP, PAB #### [facility] [address] [place] [phone] [place] Creatinine Clr Calc Pharmacy 123.73 [facility] Comment on above: Performed By: #### C BC CMP, PAB #### [facility] [address] [place] [address] [place] Estimated GFR ( July > 60 Normal [facility] Comment on above: Result Comment: GFR estimated reference range: According to KDOQI guidelines, <60 ml/min/1.73m2 is sufficient to diagnose a patient with chronic kidney disease. Performed By: #### C BC CMP, PAB #### [facility] [address] Estimated GFR (Non- Am > 60 Normal [facility] Comment on above: Performed By: #### C DARIUS PATEL, PAB #### [facility] [address] Globulin (S) [Mass/Vol] 2.8 g/dL Normal [facility] Comment on above: Performed By: #### C JORGE CMP, PAB #### [address] Glucose [Mass/Vol] 115 mg/dL High 70-100 [facility] Comment on above: Result Comment: [facility] Glucose Reference Range is dependent on time and content of last meal. Glucose of more than 200 mg/dL in a nonstressed, ambulatory subject supports the diagnosis of Diabetes Mellitus. ADA recommended reference range Performed By: #### C DARIUS PATEL, PAB #### [address] Potassium [Moles/Vol] 3.7 mmol/L Normal 3.5-5.1 [facility] Comment on above: Performed By: #### C DARIUS PATEL, PAB #### [address] Protein [Mass/Vol] 5.6 g/dL Low 6.1-7.9 [facility] Comment on above: Performed By: #### C JORGE CMP, PAB #### [address] Sodium [Moles/Vol] 140 mmol/L Normal 136-146 [facility] Comment on above: Performed By: #### C JORGE CMP, PAB #### [address] Urea nitrogen [Mass/Vol] 7 mg/dL Low 9-23 [facility] Comment on above: Performed By: #### C BC, CMP, PAB #### [place] [address] [place] Dipstick and Microscopicon 0 2-25-2022 Appearance (U) Clear Normal Clear [facility] Comment on above: Order Comment: Name Collection Type:: Voided Performed By: #### A DDONUAPLUS, CUU #### [address] Bacteria,Urine 4+ High None Seen [facility] Comment on above: Order Comment: Name Collection Type:: Voided Performed By: #### A DDONUAPLUS, CUU #### [place] [address] [place] Bilirubin,Urine Negative Normal Negative [facility] Comment on above: Order Comment: Name Collection Type:: Voided Performed By: #### A DDONUAPLUS, CUU #### [address] Color (U) Yellow Normal Yellow [facility] Comment on above: Order Comment: Name Collection Type:: Voided Performed By: #### A DDONUAPLUS, CUU #### [address] Glucose Ql (U) Normal Normal Normal [facility] Comment on above: Order Comment: Name Collection Type:: Voided Performed By: #### A DDONUAPLUS, CUU #### [address] Hyaline Casts,Urine 0-8 Normal 0-8 [facility] Comment on above: Order Comment: Name Collection Type:: Voided Result Comment: PERF ORMED BY: [place] [address] PATHOLOGIST SOFT BOARDER HUY COX M.D. Performed By: #### A DDONUAPLUS, CUU #### [place] [address] [place] Ketones Ql (U) Negative Normal Negative [facility] Comment on above: Order Comment: Name Collection Type:: Voided Performed By: #### A DDONUAPLUS, CUU #### [place] [address] [place] Leukocyte esterase Test strip Ql (U) 3+ High Negative [facility] Comment on above: Order Comment: Name Collection Type:: Voided Performed By: #### A DDONUAPLUS, CUU #### [address] Nitrite,Urine Positive High Negative [facility] Comment on above: Order Comment: Name Collection Type:: Voided Performed By: #### A DDONUAPLUS, CUU #### [address] Occult Blood,Urine Negative Normal Negative [facility] Comment on above: Order Comment: Name Collection Type:: Voided Result Comment: PERF ORMED BY: [place] [address] PATHOLOGIST SOFT BOARDER HUY COX M.D. Performed By: #### A DDONUAPLUS, CUU #### [address] pH (U) 5.5 [pH] Normal 5.0-9.0 [facility] Comment on above: Order Comment: Name Collection Type:: Voided Performed By: #### A DDONUAPLUS, CUU #### [address] Protein,Urine Negative Normal Negative [facility] Comment on above: Order Comment: Name Collection Type:: Voided Performed By: #### A DDONUAPLUS, CUU #### [place] [address] [place] RBC LM.HPF (Urine sed) [#/Area] 0 /[HPF] Normal 0-4 [facility] Comment on above: Order Comment: Name Collection Type:: Voided Performed By: #### A DDONUAPLUS, CUU #### [place] [address] [place] Specificy [place],Urine 1.012 Normal 1.00 1-1.03 0 [facility] Comment on above: Order Comment: Name Collection Type:: Voided Performed By: #### A DDONUAPLUS, CUU #### [facility] [address] [place] [address] Squamous Epithelial Cell,Urine 0-1 Normal 0-2 [facility] Comment on above: Order Comment: Name Collection Type:: Voided Performed By: #### A DDONUAPLUS, CUU #### [address] Urobilinogen,Urine Normal Normal Normal [facility] Comment on above: Order Comment: Name Collection Type:: Voided Performed By: #### A DDONUAPLUS, CUU #### [address] WBC,Urine 20-49 High 0-4 [facility] Comment on above: Order Comment: Name Collection Type:: Voided Performed By: #### A DDONUAPLUS, CUU #### [address] Prealbuminon 10-30-2021 Prealbumin [Mass/Vol] 13.1 mg/dL Low 18.0-38.0 [facility] Comment on above: Result Comment: PERF ORMED BY: [place] [address] PATHOLOGIST SOFT BOARDER HUY COX M.D. Performed By: #### C BC, CMP, PAB #### [address] Urine Cultureon 10-30-2021 Bacteria identified Cx Nom (U) ORGANISM: Escherichia coli (O:ESCCOL) [place] Count >100,000 Aerobic JOSE Charge (NUC86) SUSCEPTIBILITY [...] RESISTANT TO ALL B-LACTAM DRUGS. PERFORMED BY: [place] [address] PATHOLOGIST SOFT BOARDER HUY COX M.D. Normal [facility] Comment on above: Performed By: #### A DDCHANTEUAKRIS, RUBIU #### [address] COVID-19 FRon 10-29-2021 SARS-CoV-2 (COVID-19) RNA ADRIÁN+probe Ql (Unsp spec) Negative Normal Negative [facility] Comment on above: Order Comment: Healt hcare Worker?: N Result Comment: Testing for SARS-CoV-2 by RT-PCR This test was developed and its performance characteristics determined by [employer] and validated at the [facility]. This test has not been [...] is terminated or revoked sooner. PERFORMED BY: [facility] [address] [place] [address] PATHOLOGIST SOFT BOARDER HUY COX M.D. Performed By: #### C OVID 19 [facility] #### [facility] [address] Clinical Event Note-Need for Hospital Bedon [...] of the lumbar region. Provider/Team Contact Info-Pager [phone] Electronic Signatures: Sharmin Guaman (FINANCIAL REPORTING SPECIALIST-CARPENTER/LABOR) (Signed 02-Oct-2021 15:19) Authored: Clinical Event Note Last Updated: 02-Oct-2021 15:19 by Sharmin Guaman (FINANCIAL REPORTING SPECIALIST-CARPENTER/LABOR) Normal [facility] Clinical Event Note-Need for wheel [...] can self propel or has a healthcare associate to provide assistance. Provider/Team Contact Info-Pager [phone] Electronic Signatures: Sharmin Guaman (FINANCIAL REPORTING SPECIALIST-CARPENTER/LABOR) (Signed 02-Oct-2021 15:27) Authored: Clinical Event Note Last Updated: 02-Oct-2021 15:27 by Sharmin Guaman (FINANCIAL REPORTING SPECIALIST-CARPENTER/LABOR) Normal [facility] Daily Progress Note-Neurosur jinny 10-02-2021 Daily Progress Note-Neurosurgery Service: Neurosurgery Subjective Data: MORALES LEE is a 46 year old Female who is Hospital Day # 18 and POD #11 for posterior L4-L5 decompression;posterior L4-L5 arthrodesis. Objective Data: Objective Information: T PRBPSpO2 [id number]/8397% Date/Time1/28 1: 1: 1: 1: 1:28 Range(36.2C [...] 2021 10:00 pm000 Oct 01, 2021 2:00 [id number] The Intake and Output Totals for the [...] the note. I personally evaluated the patient [id number] Electronic Signatures: Kenneth Philippe (Resident)) (Signed 02-Oct-2021 06:52) Authored: Service, Subjective Data, Objective Data, Assessment and Plan, Note Completion Lex Frederick) (Signed 02-Oct-2021 15:16) Authored: Note Completion Co-Signer: Service, Subjective Data, Objective Data, Assessment and Plan, Note Completion Last Updated: 02-Oct-2021 15:16 by Lex Frederick) [facility] Clinical Event Note-Discharg e discussionon [...] duration of trip. Electronic Signatures: Ambrocio Izaguirre (FINANCIAL REPORTING SPECIALIST-CARPENTER/LABOR) (Signed 01-Oct-2021 17:11) Authored: Clinical Event Note Last Updated: 01-Oct-2021 17:11 by Ambrocio Izaguirre (FINANCIAL REPORTING SPECIALIST-CARPENTER/LABOR) Normal [facility] Clinical Event Note-Need for hospital [...] when lying flat. Electronic Signatures: Ambrocio Izaguirre (FINANCIAL REPORTING SPECIALIST-CARPENTER/LABOR) (Signed 01-Oct-2021 14:48) Authored: Clinical Event Note Last Updated: 01-Oct-2021 14:48 by Ambrocio Izaguirre (FINANCIAL REPORTING SPECIALIST-CARPENTER/LABOR) Normal [facility] Daily Progress Note-Nuha leonidasgaurang 10-01-2021 Daily Progress Note-Neurosurgery Service: Neurosurgery Subjective Data: MORALES LEE is a 46 year old Female who is Hospital Day # 17 and POD #10 for posterior L4-L5 decompression;posterior L4-L5 arthrodesis. Objective Data: Objective Information: T PRBPSpO2 [id number]/7194% Date/Time10/01 0: 0: 0:381 0:381 0:38 Range(35.6C - 36.8C ) (64 - 96 ) (16 - 19 ) (94 - 138 )/ (59 - 83 ) (92% - 94% ) Pain reported at 09/30 9:00: 2 = Mild ---- Intake and Output ----- Mn/Dy/Year TimeIntakeOutputNet Sep 29, 2021 10:00 [id number] Sep 29, 2021 2:00 [id number] Sep 29, 2021 6:00 am000 The Intake [...] Updated: 01-Oct-2021 10:29 by Lex Frederick) Normal [facility] Daily Progress Note-Neurosurgery This report has been cancelled. Normal [facility] Daily Progress Note-Nuha stearns 09-30-2021 Daily Progress Note-Neurosurgery Service: Neurosurgery Subjective Data: MORALES LEE is a 46 year old Female who is Hospital Day # 15 and POD #8 for posterior L4-L5 decompression;posterior L4-L5 arthrodesis. Objective Data: Objective Information: T PRBPSpO2 [id number]/7393% Date/Time09/29 16: 16: 16: 16: 16:00 Range(36C - 36.7C ) (67 - 86 ) (17 - 20 ) (94 - 153 )/ (15 - 113 ) (93% - 98% ) Pain reported at 09/29 9:56: 5 = Moderate ---- Intake and Output ----- Mn/Dy/Year TimeIntakeOutputNet Sep 29, 2021 2:00 [id number] Sep 29, 2021 6:00 am000 Sep 28, 2021 10:00 [id number] The Intake and Output Totals for the [...] the note. I personally evaluated the patient [id number] Electronic Signatures: Lex Frederick) (Signed 30-Sep-2021 11:18) Authored: Note Completion Co-Signer: Service, Subjective Data, Objective Data, Assessment and Plan, Note Completion Jaya Mosquera (Resident)) (Signed 30-Sep-2021 03:18) Authored: Service, Subjective Data, Objective Data, Assessment and Plan, Note Completion Last Updated: 30-Sep-2021 11:18 by Lex Frederick) [facility] Rehab Usdh-pn-vmxkyjajt - co -tx /c OT to address multidiscipon 09-30-2021 Rehab Obvv-po-dlnrvqscb - co-tx /c OT to address multidiscip Rehab: Info: Disciplinephysical correctional therapy director Mode of Treatmentphysical therapy; co-treatment; co-tx /c OT to address multidisciplinary functional needs and maximize pt's safety. Time IN12:15 Time OUT12:55 Total Treatment [id number] Patient in ... at end of sessionbed, 3 railings up; alarm off; not on at start of visit Communicated with ... at end of sessionbedside nurse Patient Effortgood Symptoms Noted During/After Treatmentfatigue Treatment Considerations/CommentsEx tensive discussion /c amongst MILK DRIVER, OT, and pt regarding her current physical [...] rolling right; rolling left; scooting/bridging Roll Left [place] (Bed Mobility)moderate assist (50% patient effort); 1 person assist; nonverbal cues (demo/gesture); verbal cues Roll Right [place] (Bed Mobility)moderate assist (50% patient effort); 1 person assist; nonverbal cues (demo/gesture); verbal cues Scoot/Bridge [place] (Bed Mobility)maximum assist (25% patient effort); 2 person assist; nonverbal cues (demo/gesture); verbal cues Vmmnsq-ya-Wfc [place] (Bed Mobility)maximum assist (25% patient effort); 2 person assist; nonverbal cues (demo/gesture); verbal cues Irq-dl-Xukpyc [place] (Bed Mobility)maximum assist (25% patient effort); 2 person assist; nonverbal cues (demo/gesture); verbal cues Assistive Device (Bed Mobility)bed rails; draw sheet Comment, Bed MobilityPt showing improvement in her ability to roll, performing 50% of AROM to achieve full rolling position. Transfer Assessment/Interventionss it to stand transfer; stand to sit transfer Comment, TransfersToday's session, OT and I utilized Arpeggi Stand device to assist pt into full [...] Pt repositioned back to sitting EOB. Sit-Stand [place] (Transfers)dependent (less than 25% patient effort) Sit-Stand Assistive Device (Transfers)mechanical lift/aid Stand-Sit [place] (Transfers)dependent (less than 25% patient effort) Stand-Sit [...] Score8 Short Term Goals: Bed Mobility: Date [id number] Bed Mobility: [place] Level Goalminimum assist (75% patients effort) Bed Mobility: Physical Assist Level Goal1-person assist, verbal cues Bed Mobility: Time Frame for Goal2 wks Transfer: Established [id number] Transfer: Transfer Type Lecgops-xp-gwmke/chair-to -bed; nlg-gi-jasuo/jnsmv-mq-eez Transfer: [place] Level Goalmoderate assist (50% patients effort) Transfer: Physical Assist Level Goal1-person assist; verbal cues Transfer: Assistive Device Goalrolling walker Transfer: Time Frame for Goal2 wks Gait: Established [id number] Gait: [place] Level Goalmoderate assist (50% patients (more content not included)... Normal [facility] Rehab Note-experiential therapist apy - co-tx with PT to maximizeon 09-30-2021 Rehab Note-occupational therapy - co-tx with PT to maximize Rehab: Info: Disciplineoccupational therapist Mode of Treatmentoccupational therapy; co-tx with PT to maximize pt's mobility and safety. Time IN12:15 Time OUT12:55 Total Treatment [id number] Patient in ... at end of sessionbed, [...] olling right; rolling left; scooting/bridging Roll Left [place] (Bed Mobility)moderate assist (50% patient effort); 1 person assist; nonverbal cues (demo/gesture); verbal cues Roll Right [place] (Bed Mobility)moderate assist (50% patient effort); 1 person assist; nonverbal cues (demo/gesture); verbal cues Scoot/Bridge [place] (Bed Mobility)maximum assist (25% patient effort); 2 [...] lower body dressing; upper body dressing; bathing [place] Level (Bathing)set up; verbal cues; moderate assist (50% patient effort); 1 person assist Comment (Bathing)anticipated due to impaired balance, strength, and pain. [place] Level (Upper Body Dressing)set up; verbal cues; moderate assist (50% patient effort) Comment (Upper Body Dressing)anticipated due to impaired balance, strength, and pain. [place] Level (Lower Body Dressing)don; socks; dependent (less than 25% patient effort) Position (Lower Body Dressing)supine [place] Level (Grooming)modified independence Comment (Grooming)Pt observed applying Orajel to gums, able to manage packaging, cap un/screwing, and application. [place] Level (Feeding)modified independence Comment (Feeding)Pt able to retrieve OJ cup from tray table at R side, bring to mouth, and drink appropriately. [place] Level (Toileting)dependent (less than 25% patient effort); [...] Score15 Short Term Goals: Bed Mobility: Date [id number]-1653 Bed Mobility: [place] Level Goalcontact guard Bed Mobility: Physical Assist Level Goalset-up, verbal cues Bed Mobility: Time Frame for Goal2 wks Transfer: Established [id number] Transfer: Transfer Type Wvszxsd-ac-xgycv/chair-to -bed; unb-vz-hnnbl/mfiby-rh-jif ; toilet Transfer: [place] Level Goalminimum assist (75% patients effort) Transfer: Physical Assist Level Goalset-up; verbal cues; 1-person assist Transfer: Assistive Device GoalLRD Transfer: Time Frame for Goal2 wks Balance: Established [id number]-4061 Balance: Goal DetailsPt will perform ADL while reaching outside MADDIE and returning self to midline >8 minutes with set-up assist, SBA, and minimal verbal cues for safety. Enrique (more content not included)... Normal [facility] Daily Progress Note-Neurosjudy stearns 09-29-2021 Daily Progress Note-Neurosurgery Service: Neurosurgery Subjective Data: MORALES LEE is a 46 year old Female who is Hospital Day # 14 and POD #7 for posterior L4-L5 decompression;posterior L4-L5 arthrodesis. Objective Data: Objective Information: T PRBPSpO2 [id number]/[id number]% Date/Time09/28 4: 8: 8: 8: 8:00 Range(36C [...] 2021 6:00 am000 Sep 27, 2021 10:00 [id number] Sep 27, 2021 2:00 [id number] The Intake and Output Totals for the last 24 hours are: IntakeOutputNet [id number] Physical Exam by System: Neurological: A&Ox3 RUE [...] the note. I personally evaluated the patient [id number] Electronic Signatures: Lex Frederick) (Signed 29-Sep-2021 09:23) Authored: Note Completion Co-Signer: Service, Subjective Data, Objective Data, Assessment and Plan, Note Completion Jaya Mosquera (Resident)) (Signed 29-Sep-2021 03:01) Authored: Service, Subjective Data, Objective Data, Assessment and Plan, Note Completion Last Updated: 29-Sep-2021 09:23 by Lex Frederick) [facility] Rehab Kvos-wg-pvvlfsmbr - co -tx /c OT to address multidiscipon 09-29-2021 Rehab Maqv-xt-audtcngzu - co-tx /c OT to address multidiscip Rehab: Info: Disciplinephysical correctional therapy director Mode of Treatmentphysical therapy; co-treatment; co-tx /c OT to address multidisciplinary functional needs and maximize pt's safety. Time IN14:30 Time OUT15:40 Total Treatment [id number] Patient in ... at end of sessionbed, [...] to sit; sit to supine Roll Left [place] (Bed Mobility)maximum assist (25% patient effort); 2 person assist; verbal cues; nonverbal cues (demo/gesture) Roll Right [place] (Bed Mobility)maximum assist (25% patient effort); 2 person assist; verbal cues; nonverbal cues (demo/gesture) Scoot/Bridge [place] (Bed Mobility)maximum assist (25% patient effort); 2 person assist; nonverbal cues (demo/gesture); verbal cues Vhpqep-rc-Aaq [place] (Bed Mobility)maximum assist (25% patient effort); 2 person assist; nonverbal cues (demo/gesture); verbal cues Gvu-bj-Woztbh [place] (Bed Mobility)verbal cues; nonverbal cues (demo/gesture); maximum [...] Pt repositioned back to sitting EOB. Sit-Stand [place] (Transfers)dependent (less than 25% patient effort) Sit-Stand Assistive Device (Transfers)mechanical lift/aid Stand-Sit [place] (Transfers)dependent (less than 25% patient effort) Stand-Sit [...] Score8 Short Term Goals: Bed Mobility: Date [id number]-5754 Bed Mobility: [place] Level Goalminimum assist (75% patients effort) Bed Mobility: Physical Assist Level Goal1-person assist, verbal cues Bed Mobility: Time Frame for Goal2 wks Transfer: Established [id number] Transfer: Transfer Type Szvrosr-ji-ylqpu/chair-to -bed; ndy-xy-pjnpk/cbdsl-vk-nda Transfer: [place] Level Goalmoderate assist (50% patients effort) Transfer: Physical Assist Level Goal1-person assist; verbal cues Transfer: Assistive Device Goalrolling walker Transfer: Time Frame for Goal2 wks Gait: Established [id number] Gait: [place] Level Goalmoderate assist (50% patients effort) Gait: Physical Assist Level1-person assist; verbal cues Gait: Assistive Device Goalrolling walker Gait: Distance Goal15 feet Gait: Time Frame for Goal2 wks Balance: Established [id number]-1327 Balance: Goal DetailsSitting EOB 20 minutes with 0-1 UE support, SBA for static sitting, CGA for dynamic. Standing 1 minute with FWW and CGA Education: Learnerpatient Topicrehab plan of care; discharge recommendations including destination and/or equipment Outcome Summary: Progress: Physical Therapyprogress towards functional goals is fair Outcome (more content not included)... Normal [facility] Rehab Note-experiential therapist apy - co-tx with PT to maximizeon 09-29-2021 Rehab Note-occupational therapy - co-tx with PT to maximize Rehab: Info: Disciplineoccupational therapist Mode of Treatmentoccupational therapy; co-tx with PT to maximize pt's mobility and safety. Time IN14:30 Time OUT15:40 Total Treatment [id number] Patient in ... at end of sessionbed, [...] Function Deficit (Cognition)moderate deficit; insight/awareness of deficits; self-monitoring/self-sibohan ection; problem solving/reasoning Safety Deficit (Cognitive)moderate deficit; [...] to sit; sit to supine Roll Left [place] (Bed Mobility)maximum assist (25% patient effort); 2 person assist; verbal cues; nonverbal cues (demo/gesture); multiple rolls to adjust harness Roll Right [place] (Bed Mobility)maximum assist (25% patient effort); 2 person assist; verbal cues; nonverbal cues (demo/gesture); multiple rolls to adjust harness Scoot/Bridge [place] (Bed Mobility)maximum assist (25% patient effort); 2 person assist; nonverbal cues (demo/gesture); verbal cues; boost HOB Yneprg-wi-Sdf [place] (Bed Mobility)maximum assist (25% patient effort); 2 person assist; nonverbal cues (demo/gesture); verbal cues Bgp-nd-Lragoi [place] (Bed Mobility)verbal cues; nonverbal cues (demo/gesture); maximum assist (25% patient effort); 2 person assist Assistive Device (Bed Mobility)draw sheet; bed rails Transfer Assessment/Interventionss it to stand transfer; stand to sit transfer Sit-Stand [place] (Transfers)dependent (less than 25% patient effort) Sit-Stand Assistive Device (Transfers)mechanical lift/aid; Faye Plus Stand-Sit [place] (Transfers)dependent (less than 25% patient effort) Stand-Sit Assistive Device (Transfers)mechanical lift/aid; Faye Plus Safety Issues Impacting Function (Mobility)awareness of need for assistance; insight into deficits/self awareness Impairments Impacting Function (Mobility)endurance/activ ity tolerance; strength; balance; coordination; postural/trunk control ADL: BADL Assessment/Interventionto ileting; feeding; grooming; lower body dressing; upper body dressing; bathing [place] Level (Bathing)set up; verbal cues; moderate assist (50% patient effort); 1 person assist Comment (Bathing)anticipated due to impaired balance, strength, and pain. [place] Level (Upper Body Dressing)set up; verbal cues; moderate assist (50% patient effort) Comment (Upper Body Dressing)anticipated due to impaired balance, strength, and pain. [place] Level (Lower Body Dressing)don; socks; dependent (less than 25% patient effort) Position (Lower Body Dressing)supine [place] Level (Grooming)set up; contact guard Comment (Grooming)anticipated due to impaired balance, strength, and pain. [place] Level (Feeding)set up; modified independence Comment (Feeding)anticipated [place] Level (Toileting)dependent (less than 25% patient effort); purewick Impairments, BADL Safety/Performancebalance ; cognition; endurance/activity tolerance; strength; trunk/postural control Cognitive Impairments, BADL Safety/Performanceawarene ss, need for assistance; insight into deficits/self awareness; judgment; problem solving/reasoning Motor: Sitting, Static (Balance)good balance SBA Sitting, Dynamic (Balance)fair balance CGA Vba-hg-Nlhej (Balance)poor balance Total A via Faye Plus lift Standing, Static (Balance)poor balance Max A x1 - via Faye Plus Standing, Dynamic (Balance)unable to balance Balance ActivitiesPt sat EOB ~20 minutes throughout session primarily with SB (more content not included)... Normal [facility] Clinical Event Note-Medical Assessmenton 09-28-2021 [...] oil enema alternating with tap water enema [id number] - Bisacodyl suppository QHS Daily - Monitor [...] for wound check 10/07/21 at 10:15 am, [facility] 5th floor - F/U with Dr. [...] note 45 minutes; Electronic Signatures: Concetta Shi (FINANCIAL REPORTING SPECIALIST-CARPENTER/LABOR) (Signed 28-Sep-2021 14:31) Authored: Clinical Event Note Last Updated: 28-Sep-2021 14:31 by Concetta Shi (FINANCIAL REPORTING SPECIALIST-CARPENTER/LABOR) Normal [facility] Daily Progress Note-Gastroen terologyon 09-28-2021 Daily Progress Note-Gastroenterology Service: Gastroenterology Subjective Data: MORALES LEE is a 46 year old Female who is Hospital Day # 14 and POD #7 for posterior L4-L5 decompression;posterior L4-L5 arthrodesis. No events overnight. Had one bowel movement this am. Otherwise no complaints. Objective Data: Objective Information: T PRBPSpO2 [id number]/6993% Date/Time09/28 4: 8: 8: 8: 8:00 Range(36C [...] 2021 6:00 am000 Sep 27, 2021 10:00 [id number] Sep 27, 2021 2:00 [id number] The Intake and Output Totals for the last 24 hours are: IntakeOutputNet [id number] Physical Exam by System: Constitutional: Constitutional: A&Ox3, [...] recommend tr (more content not included)... Normal [facility] Daily Progress Note-Nuha jinny 09-28-2021 Daily Progress Note-Neurosurgery Service: Neurosurgery Subjective Data: MORALES LEE is a 46 year old Female who is Hospital Day # 14 and POD #7 for posterior L4-L5 decompression;posterior L4-L5 arthrodesis. Objective Data: Objective Information: T PRBPSpO2 [id number]/4893% Date/Time09/28 4: 4: 4: 4: 4:00 Range(36C - 36.6C ) (72 - 87 ) (15 - 22 ) (92 - 153 )/ (48 - 113 ) (92% - 99% ) As of 27-Sep-2021 22:00:00, patient is on 2 L/min of oxygen via nasal cannula. Pain reported at 09/27 22:00: 0 = None ---- Intake and Output ----- Mn/Dy/Year TimeIntakeOutputNet Sep 26, 2021 10:00 [id number] Sep 26, 2021 2:00 [id number] The Intake and Output Totals for the last 24 hours are: IntakeOutputNet [id number] Physical Exam by System: Neurological: A&Ox3 RUE [...] the note. I personally evaluated the patient [id number] Electronic Signatures: Fidel Maciel (Resident)) (Signed 28-Sep-2021 05:47) Authored: Service, Subjective Data, Objective Data, Assessment and Plan, Note Completion Lex Frederick) (Signed 28-Sep-2021 07:32) Authored: Note Completion Co-Signer: Service, Subjective Data, Objective Data, Assessment and Plan, Note Completion Last Updated: 28-Sep-2021 07:32 by Lex Frederick) Normal [facility] RENAL FUNCTION PANELon 09-28 Albumin [Mass/Vol] 3.1 g/dL Low 3.4 - 5.0 [facility] Comment on above: Performed By: #### R ENAL ####[id number] [place] [address] Anion gap [Moles/Vol] 17 mmol/L Normal 10 - 20 [facility] Comment on above: Performed By: #### R ENAL ####[id number] [place] [address] Calcium [Mass/Vol] 8.4 mg/dL Low 8.6 - 10.6 [facility] Comment on above: Performed By: #### R ENAL ####[id number] [place] [address] Chloride [Moles/Vol] 102 mmol/L Normal 98 - 107 [facility] Comment on above: Performed By: #### R ENAL ####[id number] [place] [address] Creatinine [Mass/Vol] 0.47 mg/dL Low 0.50 - 1.05 [facility] Comment on above: Performed By: #### R ENAL ####[id number] [place] [address] eGFR FEMALE >90 Normal >90 [facility] Comment on above: Result Comment: CALC ULATIONS OF ESTIMATED GFR ARE PERFORMED USING THE 2020 CKD-EPI STUDY REFIT EQUATION WITHOUT THE RACE VARIABLE FOR THE IDMS-TRACEABLE CREATININE METHODS. https://jasn.asnjournals.org/content//ASN.463 7572684 Performed By: #### R ENAL ####[id number] [place] [address] Glucose [Mass/Vol] 74 mg/dL Normal 74 - 99 [facility] Comment on above: Performed By: #### R ENAL ####[id number] [place] [address] HCO3 (Bld) [Moles/Vol] 27 mmol/L Normal 21 - 32 [facility] Comment on above: Performed By: #### R ENAL ####[id number] [place] [address] Phosphate [Mass/Vol] 3.4 mg/dL Normal 2.5 - 4.9 [facility] Comment on above: Result Comment: The performance characteristics of phosphorus testing in heparinized plasma have been validated by the individual laboratory site where testing is performed. Testing on heparinized plasma is not approved by the FDA; however, such approval is not necessary. Performed By: #### R ENAL ####[id number] [place] [address] Potassium [Moles/Vol] 3.7 mmol/L Normal 3.5 - 5.3 [facility] Comment on above: Performed By: #### R ENAL ####[id number] [place] [address] Sodium [Moles/Vol] 142 mmol/L Normal 136 - 145 [facility] Comment on above: Performed By: #### R ENAL ####[id number] [place] [address] Urea nitrogen [Mass/Vol] 6 mg/dL Normal 6 - 23 [facility] Comment on above: Performed By: #### R ENAL ####[id number] [place] [address] Radiologyon 09-28-2021 XR Abdomen AP Normal MG-Gastroen terology-Rosendo hernandesell 6 I Work Phone: Rehab Note-attemptedon 09-28 Rehab Note-attempted Rehab: Info: Disciplinephysical correctional therapy director Mode of Treatmentattempted Time IN15:30 Reason Treatment Not Performedpatient/family declined treatment, not feeling well Treatment Considerations/CommentsPt declined therapy at this time 2* increased fatigue, nausea. Pt stated NO! NO! NO! upon therapists arrival, even /c increased encouragement. Will reattempt as schedule allows. Short Term Goals: Bed Mobility: Date [id number] Bed Mobility: [place] Level Goalminimum assist (75% patients effort) Bed Mobility: Physical Assist Level Goal1-person assist, verbal cues Bed Mobility: Time Frame for Goal2 wks Transfer: Established [id number]-7917 Transfer: Transfer Type Wluhguj-vy-scoxu/chair-to -bed; kzd-yu-gmofz/bjwce-dv-kfp Transfer: [place] Level Goalmoderate assist (50% patients effort) Transfer: Physical Assist Level Goal1-person assist; verbal cues Transfer: Assistive Device Goalrolling walker Transfer: Time Frame for Goal2 wks Gait: Established [id number]-9690 Gait: [place] Level Goalmoderate assist (50% patients effort) Gait: Physical Assist Level1-person assist; verbal cues Gait: Assistive Device Goalrolling walker Gait: Distance Goal15 feet Gait: Time Frame for Goal2 wks Balance: Established Bvle50-Vfd-1395 Balance: Goal DetailsSitting EOB 20 minutes with 0-1 UE support, SBA for static sitting, CGA for dynamic. Standing 1 minute with FWW and CGA Electronic Signatures: Yosi Campbell (MILK DRIVER) (Signed 28-Sep-2021 15:32) Entered: Short Term Goals, Info Authored: Deon, Short Term Goals Boone Broussard (PT) (Signed 01-Oct-2021 09:01) Co-Signer: Short Term Goals, Info Last Updated: 01-Oct-2021 09:01 by Boone Broussard (PT) Normal [facility] Rehab Note-attempted Rehab: Info: Mode [...] 28-Sep-2021 15:28 by Silvana Marshall (OT) Normal [facility] Renal Function Panelon 09-28 Albumin [...] RACE VARIABLE FOR THE IDMS-TRACEABLE CREATININE METHODS.https://jasn.asnjournals.org/content/early /ASN.0757181224 TH ABDOMEN AP VIEWon 022 ABDOMEN AP VIEW Patient Name: MORALES LEE STUDY: ABDOMEN AP VIEW; 09/28/2021 1:22 pm INDICATION: Abd. dist. . COMPARISON: 09/27/2021 abdominal radiograph. ACCESSION NUMBER(S): [id number] ORDERING CLINICIAN: CONCETTA SHI FINDINGS: Two AP [...] as stated. This study was interpreted at [facility], [place], [place]. Electronically signed by: TANIKA SUTTON MD [facility] Consult-Gastroenterologyon 0 09-27-2021 Consult-Gastroenterology Service: Service: Gastroenterology [...] admission for post-op pain including a dilaudid WATCH LEADER. Has been on scheduled bowel regimen with [...] penicillin: Unknown Objective: Objective Information: T PRBPSpO2 [id number]/02191% Date/Time09/27 4: 4: 4:001 4:00 Range (76 [...] C6-7 ACDFF, (more content not included)... Normal [facility] Daily Progress Note-Neurosur jinny 09-27-2021 Daily Progress Note-Neurosurgery Service: Neurosurgery Subjective Data: MORALES LEE is a 46 year old Female who is Hospital Day # 13 and POD #6 for posterior L4-L5 decompression;posterior L4-L5 arthrodesis. Objective Data: Objective Information: T PRBPSpO2 [id number]/24808% Date/Time09/26 11:0809/27 4: 4: 4: 4:00 Range(37C [...] 2021 6:00 am000 Sep 26, 2021 10:00 [id number] Sep 26, 2021 2:00 [id number] The Intake and Output Totals for the last 24 hours are: IntakeOutputNet [id number] Physical Exam by System: Neurological: A&Ox3 RUE [...] the note. I personally evaluated the patient [id number] Electronic Signatures: Chaparro Umana (Resident)) (Signed 27-Sep-2021 06:11) Authored: Service, Subjective Data, Objective Data, Assessment and Plan, Note Completion Natalia Palacios) (Signed 08-Oct-2021 14:31) Authored: Note Completion Co-Signer: Service, Subjective Data, Objective Data, Assessment and Plan, Note Completion Last Updated: 08-Oct-2021 14:31 by Natalia Palacios) Normal [facility] MAGNESIUMon 09-27-2021 Magnesium [Mass/Vol] 1.80 mg/dL Normal 1.60 - 2.40 [facility] Comment on above: Performed By: #### C BC #### [facility] [address] [place] [address] Magnesium, Serumon Magnesium [Mass/Vol] 1.80 mg/dL See Below MG-G astroen terraiza-Rosendo moura 6 [facility] Work Phone: Comment on above: Reference Range: 1.6 0 - 2.40 RENAL FUNCTION PANELon 09-27 Albumin [Mass/Vol] 3.3 g/dL Low 3.4 - 5.0 [facility] Comment on above: Performed By: #### R ENAL #### [facility] [address] [place] [address] Anion gap [Moles/Vol] 17 mmol/L Normal 10 - 20 [facility] Comment on above: Performed By: #### R ENAL #### [facility] [address] [place] [address] Calcium [Mass/Vol] 8.5 mg/dL Low 8.6 - 10.6 [facility] Comment on above: Performed By: #### R ENAL #### [facility] [address] [place] [address] Chloride [Moles/Vol] 98 mmol/L Normal 98 - 107 [facility] Comment on above: Performed By: #### R ENAL #### [facility] [address] [place] [address] Creatinine [Mass/Vol] 0.44 mg/dL Low 0.50 - 1.05 [facility] Comment on above: Performed By: #### R ENAL #### [facility] [address] [place] [address] eGFR FEMALE >90 Normal >90 [facility] Comment on above: Result Comment: CALC ULATIONS OF ESTIMATED GFR ARE PERFORMED USING THE 2020 CKD-EPI STUDY REFIT EQUATION WITHOUT THE RACE VARIABLE FOR THE IDMS-TRACEABLE CREATININE METHODS. https://jasn.asnjournals.org/content//ASN.089 6318429 Performed By: #### R ENAL #### [facility] [address] [place] [address] Glucose [Mass/Vol] 91 mg/dL Normal 74 - 99 [facility] Comment on above: Performed By: #### R ENAL #### [facility] [address] [place] [address] HCO3 (Bld) [Moles/Vol] 26 mmol/L Normal 21 - 32 [facility] Comment on above: Performed By: #### R ENAL #### [facility] [address] [place] [address] Phosphate [Mass/Vol] 4.0 mg/dL Normal 2.5 - 4.9 [facility] Comment on above: Result Comment: The performance characteristics of phosphorus testing in heparinized plasma have been validated by the individual laboratory site where testing is performed. Testing on heparinized plasma is not approved by the FDA; however, such approval is not necessary. Performed By: #### R ENAL #### [facility] [address] [place] [address] Potassium [Moles/Vol] 4.1 mmol/L Normal 3.5 - 5.3 [facility] Comment on above: Performed By: #### R ENAL #### [facility] [address] [place] [address] Sodium [Moles/Vol] 137 mmol/L Normal 136 - 145 [facility] Comment on above: Performed By: #### R ENAL #### [facility] [address] [place] [address] Urea nitrogen [Mass/Vol] 6 mg/dL Normal 6 - 23 [facility] Comment on above: Performed By: #### R ENAL #### [facility] [address] [place] [address] Radiologyon 09-27-2021 XR Abdomen AP Normal MG-Gastroen [...] RACE VARIABLE FOR THE IDMS-TRACEABLE CREATININE METHODS.https://jasn.asnjournals.org/content/early/ /ASN.9851868503 ABDOMEN AP VIEWon 022 ABDOMEN AP VIEW Patient Name: JESUS MORALES STUDY: ABDOMEN AP VIEW; 09/27/2021 2:33 am INDICATION: vomiting, constipation . COMPARISON: None. ACCESSION NUMBER(S): [id number] ORDERING CLINICIAN: FIDEL MACIEL FINDINGS: 2 AP [...] as stated. This study was interpreted at [place], [place]. Electronically signed by: DWIGHT MOY MD [facility] Daily Progress Note-Neurosjudy stearns 09-26-2021 Daily Progress Note-Neurosurgery Service: Neurosurgery Subjective Data: MORLAES LEE is a 46 year old Female who is Hospital Day # 12 and POD #5 for posterior L4-L5 decompression;posterior L4-L5 arthrodesis. Objective Data: Objective Information: T PRBPSpO2 [id number]/8299% Date/Time09/25 17: 12:001 17: 17:08 Range (68 - 98 ) (21 - 23 ) (118 - 136 )/ (69 - 82 ) (92% - 99% ) Pain reported at 09/26 3:00: sleeping ---- Intake and Output ----- Mn/Dy/Year TimeIntakeOutputNet Sep 24, 2021 10:00 [id number] Sep 24, 2021 2:00 [id number] Sep 24, 2021 6:00 [id number] The Intake and Output Totals for the last 24 hours are: IntakeOutputNet [id number] Physical Exam by System: Neurological: A&Ox3 RUE [...] the note. I personally evaluated the patient [id number] Electronic Signatures: Jaya Mosquera ( (Resident)) (Signed 26-Sep-2021 07:08) Authored: Service, Subjective Data, Objective Data, Assessment and Plan, Note Completion Natalia Palacios) (Signed 08-Oct-2021 14:10) Authored: Note Completion Co-Signer: Service, Subjective Data, Objective Data, Assessment and Plan, Note Completion Last Updated: 08-Oct-2021 14:10 by Natalia Palacios) Normal [facility] Clinical Event Note-POD 4 / [...] for wound check 10/07/21 at 10:15 am, [facility] 5th floor - F/U with Dr. [...] plan of care. Electronic Signatures: Concetta Shi (FINANCIAL REPORTING SPECIALIST-CARPENTER/LABOR) (Signed 25-Sep-2021 13:30) Authored: Clinical Event Note Last Updated: 25-Sep-2021 13:30 by Concetta Shi (FINANCIAL REPORTING SPECIALIST-CARPENTER/LABOR) Normal [facility] Daily Progress Note-Nuha stearns 09-25-2021 Daily Progress Note-Neurosurgery Service: Neurosurgery Subjective Data: MORALES LEE is a 46 year old Female who is Hospital Day # 11 and POD #4 for posterior L4-L5 decompression;posterior L4-L5 arthrodesis. Objective Data: Objective Information: T PRBPSpO2 [id number]/6799% Date/Time09/24 16: 16:: 16:00 Range (68 - 78 ) (18 - 19 ) (102 - 117 )/ (57 - 73 ) (95% - 99% ) As of 24-Sep-2021 21:40:00, patient is on 2 L/min of oxygen via nasal cannula. Pain reported at 09/24 21:40: 8 = Severe ---- Intake and Output ----- Mn[facility]Dy/[facility] Sep 23, 2021 10:00 [id number] Sep 23, 2021 6:00 [id number] The Intake and Output Totals for the last 24 hours are: [facility] [id number] Physical Exam by System: Neurological: A&Ox3 RUE [...] the note. I personally evaluated the patient [id number] Electronic Signatures: Lex Frederick) (Signed 25-Sep-2021 11:57) Authored: Note Completion Co-Signer: Service, Subjective Data, Objective Data, Assessment and Plan, Note Completion Alfredo Hendrickson (Resident)) (Signed 25-Sep-2021 05:56) Authored: Service, Subjective Data, Objective Data, Assessment and Plan, Note Completion Last Updated: 25-Sep-2021 11:57 by Lex Frederick) [facility] Rehab Gwrg-oo-nqttqpgic - co -tx /c OT to address multidiscipon 09-25-2021 Rehab Rqsx-yy-dfxantzbk - co-tx /c OT to address multidiscip Rehab: Info: Disciplinephysical correctional therapy director Mode of Treatmentphysical therapy; co-treatment; co-tx /c OT to address multidisciplinary functional needs and maximize pt's safety. Time IN15:05 Time OUT15:59 Total Treatment [id number] Patient in ... at end of sessionbed, [...] scooting/bridging; rolling right; rolling left Roll Left [place] (Bed Mobility)maximum assist (25% patient effort); 2 person assist; verbal cues; nonverbal cues (demo/gesture) Roll Right [place] (Bed Mobility)maximum assist (25% patient effort); 2 person assist; verbal cues; nonverbal cues (demo/gesture) Scoot/Bridge [place] (Bed Mobility)maximum assist (25% patient effort); 2 person assist; nonverbal cues (demo/gesture); verbal cues Xuwgzq-ef-Lhn [place] (Bed Mobility)maximum assist (25% patient effort); 2 person assist; verbal cues; nonverbal cues (demo/gesture) Pct-wz-Exrhev [place] (Bed Mobility)maximum assist (25% patient effort); 2 [...] unable to get to full standing. Sit-Stand [place] (Transfers)maximum assist (25% patient effort); verbal cues; nonverbal cues (demo/gesture); 2-3 persona assist Sit-Stand Assistive Device (Transfers)walker, front-wheeled Stand-Sit [place] (Transfers)maximum assist (25% patient effort); nonverbal cues [...] Score8 Short Term Goals: Bed Mobility: Date Etdlxdrppee82-Pmo-0293 Bed Mobility: [place] Level Goalminimum assist (75% patients effort) Bed Mobility: Physical Assist Level Goal1-person assist, verbal cues Bed Mobility: Time Frame for Goal2 wks Transfer: Established [id number]-Yez-2834 Transfer: Transfer Type Corpamm-jd-bgkld/chair-to -bed; zgt-xo-zijtl/assed-dm-nni Transfer: [place] Level Goalmoderate assist (50% patients effort) Transfer: Physical Assist Level Goal1-person assist; verbal cues Transfer: Assistive Device Goalrolling walker Transfer: Time Frame for Goal2 wks Gait: Established Gait: [place] Level Goalmoderate assist (50% patients effort) Gait: [...] goals is gradual Electronic Signatures: Yosi Campbell (MILK DRIVER) (Signed 25-Sep-2021 16:59) Entered: Outcome Summary, Short Term Goals, Sensory, TherEx, Outcomes Tools, Info, Mobility/Tone Authored: Short Term Goals, Outcome Summary, TherEx, Outcomes Tools, Info, Mobility/Tone, Sensory Boone Broussard (PT) (Signed 01-Oct-2021 09:01) Co-Signer: Outcome Summary, Short Term Goals, Sensory, TherEx (more content not included)... Normal [facility] Rehab Note-experiential therapist apy - Partial co-tx with PT to tue09-25-2021 Rehab Note-occupational therapy - Partial co-tx with PT to Rehab: Info: Disciplineoccupational therapist Mode of Treatmentoccupational therapy; Partial co-tx with PT to maximize pt's mobility and safety. Time IN15:03 Time OUT15:56 Total Treatment [id number] Patient in ... at end of sessionbed, [...] sit to supine; rolling right Roll Left [place] (Bed Mobility)Pt required assist to bend BLE at knees and to initiate turn at shoulders and hips, verbal cues for grasp on bed rail, technique, direction follow, and encouragement.; set up; verbal cues; maximum assist (25% patient effort); 2 person assist Roll Right [place] (Bed Mobility)Pt required assist to bend BLE at knees and to initiate turn at shoulders and hips, verbal cues for grasp on bed rail, technique, direction follow, and encouragement.; set up; verbal cues; maximum assist (25% patient effort); 2 person assist Scoot/Bridge [place] (Bed Mobility)boost HOB; set up; verbal cues; maximum assist (25% patient effort); 2 person assist Fqspcd-fc-Glz [place] (Bed Mobility)HOB elevated; set up; verbal cues; maximum assist (25% patient effort); 2 person assist Mel-on-Xufrel [place] (Bed Mobility)HOB elevated; set up; verbal cues; maximum assist (25% patient effort); 2 person assist Assistive Device (Bed Mobility)bed rails; draw sheet Transfer Assessment/Interventionss it to stand transfer Sit-Stand [place] (Transfers)set up; verbal cues; maximum assist (25% patient effort); x 2-3 assist Safety Issues Impacting Function (Mobility)ability to follow commands; awareness of need for assistance; insight into deficits/self awareness; judgment; problem solving Impairments Impacting Function (Mobility)balance; cognition; endurance/activity tolerance; pain; strength; postural/trunk control ADL: BADL Assessment/Interventionto ileting; feeding; grooming; lower body dressing; upper body dressing; bathing [place] Level (Bathing)set up; verbal cues; moderate assist (50% patient effort); 1 person assist Comment (Bathing)anticipated due to impaired balance, strength, and pain. [place] Level (Upper Body Dressing)set up; verbal cues; moderate assist (50% patient effort) Comment (Upper Body Dressing)anticipated due to impaired balance, strength, and pain. [place] Level (Lower Body Dressing)don; socks; dependent (less than 25% patient effort) Position (Lower Body Dressing)supine [place] Level (Grooming)set up; contact guard Comment (Grooming)anticipated due to impaired balance, strength, and pain. [place] Level (Feeding)set up; modified independence Comment (Feeding)anticipated [place] Level (Toileting)dependent (less than 25% patient effort); purewick Impairments, BADL Safety/Performancebalance ; cognition; endurance/activity tolerance; strength; trunk/postural control Cognitive Impairments, BADL Safety/Performanceawarene ss, need for assistance; insight into deficits/self awareness; judgment; problem solving/reasoning Motor: Sitting, Static (Balance)good balance SBA Sitting, Dynamic (Balance)fair balance CGA Brs-ep-Vgajc (Balance)poor balance Max A x 2-3 - attempted Standing, Static (Balance)unable to balance Standing, Dynamic (Balance)unable to balance Balance ActivitiesPt sat EOB ~30 minutes with SBA/CGA for safety. Pt demonstrated good sitting balance and trunk control. Pt attempted STS transfers 3x with (more content not included)... Normal [facility] Daily Progress Note-Nuha stearns 09-24-2021 Daily Progress Note-Neurosurgery Service: Neurosurgery Subjective Data: MORALES LEE is a 46 year old Female who is Hospital Day # 10 and POD #3 for posterior L4-L5 decompression;posterior L4-L5 arthrodesis. Objective Data: Objective Information: T PRBPSpO2 [id number]/5499% Date/Time09/23 20:4809/23 20: 20: 20: 20:48 Range(35.5C - 36.1C ) (66 - 75 ) (16 - 19 ) (90 - 118 )/ (54 - 75 ) (98% - 99% ) As of 23-Sep-2021 22:43:00, patient is on 2 L/min of oxygen via nasal cannula. ---- Intake and Output ----- Mn/Dy/Year TimeIntakeOutputNet Sep 22, 2021 10:00 [id number] Sep 22, 2021 2:00 [id number] Sep 22, 2021 6:00 [id number] The Intake and Output Totals for the last 24 hours are: IntakeOutputNet [id number] Physical Exam by System: Neurological: A&Ox3 RUE [...] the note. I personally evaluated the patient [id number] Comments/ Additional Findings Doing well. Kyphotic posture and Back Pain from instability and traumatic chance fracture significantly improved as compared to preop. 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 Normal [facility] MAGNESIUMon 09-24-2021 Magnesium [Mass/Vol] 1.71 mg/dL Normal 1.60 - 2.40 [facility] Comment on above: Performed By: #### A FPA3 #### [facility] [address] [place] [address] Magnesium, Serumon Magnesium [Mass/Vol] 1.71 mg/dL See Below MG-G astroen terology-Rosendo moura 6 [facility] Work Phone: Comment on above: Reference Range: 1.6 0 - 2.40 RENAL FUNCTION PANELon 09-24 Albumin [Mass/Vol] 2.6 g/dL Low 3.4 - 5.0 [facility] Comment on above: Performed By: #### R ENAL ####[id number] [place] [address] Anion gap [Moles/Vol] 10 mmol/L Normal 10 - 20 [facility] Comment on above: Performed By: #### R ENAL ####[id number] [place] [address] Calcium [Mass/Vol] 7.7 mg/dL Low 8.6 - 10.6 [facility] Comment on above: Performed By: #### R ENAL ####[id number] [place] [address] Chloride [Moles/Vol] 108 mmol/L High 98 - 107 [facility] Comment on above: Performed By: #### R ENAL ####[id number] [place] [address] Creatinine [Mass/Vol] 0.39 mg/dL Low 0.50 - 1.05 [facility] Comment on above: Performed By: #### R ENAL ####[id number] [place] [address] eGFR FEMALE >90 Normal >90 [facility] Comment on above: Result Comment: CALC ULATIONS OF ESTIMATED GFR ARE PERFORMED USING THE 2020 CKD-EPI STUDY REFIT EQUATION WITHOUT THE RACE VARIABLE FOR THE IDMS-TRACEABLE CREATININE METHODS. https://jasn.asnjournals.org/content//ASN.988 1618784 Performed By: #### R ENAL ####[id number] [place] [address] Glucose [Mass/Vol] 92 mg/dL Normal 74 - 99 [facility] Comment on above: Performed By: #### R ENAL ####[id number] [place] [address] HCO3 (Bld) [Moles/Vol] 29 mmol/L Normal 21 - 32 [facility] Comment on above: Performed By: #### R ENAL ####[id number] [place] [address] Phosphate [Mass/Vol] 3.3 mg/dL Normal 2.5 - 4.9 [facility] Comment on above: Result Comment: The performance characteristics of phosphorus testing in heparinized plasma have been validated by the individual laboratory site where testing is performed. Testing on heparinized plasma is not approved by the FDA; however, such approval is not necessary. Performed By: #### R ENAL ####[id number] [place] [address] Potassium [Moles/Vol] 3.9 mmol/L Normal 3.5 - 5.3 [facility] Comment on above: Performed By: #### R ENAL ####[id number] [place] [address] Sodium [Moles/Vol] 143 mmol/L Normal 136 - 145 [facility] Comment on above: Performed By: #### R ENAL ####[id number], [place] [address] Urea nitrogen [Mass/Vol] 5 mg/dL Low 6 - 23 [facility] Comment on above: Performed By: #### R ENAL ####[id number] [place] [address] Rehab Note-attemptedon 09-24 Rehab Note-attempted Rehab: Info: Mode of Treatmentattempted Time IN15:00 Reason Treatment Not Performedpatient/family declined treatment; Pt declined participation in OT treatment stating she was on a very important call that she needed to take. Electronic Signatures: Silvana Marshall (OT) (Signed 24-Sep-2021 15:29) Authored: Info Last Updated: 24-Sep-2021 15:29 by Silvana Marshall (OT) Normal [facility] Rehab Note-physical therapyo n 09-24-2021 [...] 24-Sep-2021 15:07 by Boone Broussard (PT) Normal [facility] Renal Function Panelon 09-24 Albumin [...] above high threshold 98 - 107 MG-Gastroen terology-Orsendo lwell 6 I Work Phone: CO2 [Moles/Vol] [...] RACE VARIABLE FOR THE IDMS-TRACEABLE CREATININE METHODS.https://jasn.asnjournals.org/content/early /ASN.5730305817 CBCon 09-23-2021 Erythrocyte distribution width (RBC) [Ratio] 13.1 % Normal 11.5 - 14.5 [facility] Comment on above: Performed By: #### C BC ####[id number] [place] [address] Hematocrit (Bld) [Volume fraction] 30.5 % Low 36.0 - 46.0 [facility] Comment on above: Performed By: #### C BC ####[id number] [place] [address] Hemoglobin (Bld) [Mass/Vol] 9.9 g/dL Low 12.0 - 16.0 [facility] Comment on above: Performed By: #### C BC ####[id number] [place] [address] MCHC (RBC) [Mass/Vol] 32.5 g/dL Normal 32.0 - 36.0 [facility] Comment on above: Performed By: #### C BC ####[id number] [place] [address] MCV (RBC) [Entitic vol] 92 fL Normal 80 - 100 [facility] Comment on above: Performed By: #### C BC ####[id number] [place] [address] NUCLEATED RBC 0.0 /100 WBC Normal 0.0-0.0 [facility] Comment on above: Performed By: #### C BC ####[id number] [place] [address] Platelets (Bld) [#/Vol] 244 10*3/uL Normal 150 - 450 [facility] Comment on above: Performed By: #### C BC ####[id number] [place] [address] RBC 3.33 x10E12/L Low 4.00 - 5.20 [facility] Comment on above: Performed By: #### C BC ####[id number] [place] [address] WBC (Bld) [#/Vol] 8.6 10*3/uL Normal 4.4 - 11.3 [facility] Comment on above: Performed By: #### C BC ####[id number] [place] [address] CBC AND DIFFERENTIALon 09-23 % AUTOMATED IMMATURE GRAN 0.4 % Normal 0.0 - 0.9 [facility] Comment on above: Result Comment: Jaleesa ture Granulocyte Count (IG) includes promyelocytes, myelocytes and metamyelocytes but does not include bands. Percent differential counts (%) should be interpreted in the context of the absolute cell counts (cells/L). Performed By: #### C BC #### [facility] [address] [place] [address] Basophils (Bld) [#/Vol] 0.03 10*3/uL Normal 0.00 - 0.10 [facility] Comment on above: Performed By: #### C BC #### [facility] [address] [place] [address] Basophils/100 WBC (Bld) 0.4 % Normal 0.0 - 2.0 U [facility] Comment on above: Performed By: #### C BC #### [facility] [address] [place] [address] Eosinophils (Bld) [#/Vol] 0.27 10*3/uL Normal 0.00 - 0.70 [facility] Comment on above: Performed By: #### C BC #### [facility] [address] [place] [address] Eosinophils/100 WBC (Bld) 3.6 % Normal 0.0 - 6.0 [facility] Comment on above: Performed By: #### C BC #### [facility] [address] [place] [address] Erythrocyte distribution width (RBC) [Ratio] 13.2 % Normal 11.5 - 14.5 [facility] Comment on above: Performed By: #### C BC #### [facility] [address] [place] [address] Hematocrit (Bld) [Volume fraction] 30.9 % Low 36.0 - 46.0 [facility] Comment on above: Performed By: #### C BC #### [facility] [address] [place] [address] Hemoglobin (Bld) [Mass/Vol] 10.4 g/dL Low 12.0 - 16.0 [facility] Comment on above: Performed By: #### C BC #### [facility] [address] [place] [address] Lymphocytes (Bld) [#/Vol] 2.41 10*3/uL Normal 1.20 - 4.80 [facility] Comment on above: Performed By: #### C BC #### [facility] [address] [place] [address] Lymphocytes/100 WBC (Bld) 31.9 % Normal 13.0 - 44.0 [facility] Comment on above: Performed By: #### C BC #### [facility] [address] [place] [address] MCHC (RBC) [Mass/Vol] 33.7 g/dL Normal 32.0 - 36.0 [facility] Comment on above: Performed By: #### C BC #### [facility] [address] [place] [address] MCV (RBC) [Entitic vol] 91 fL Normal 80 - 100 [facility] Comment on above: Performed By: #### C BC #### [facility] [address] [place] [address] Monocytes (Bld) [#/Vol] 0.49 10*3/uL Normal 0.10 - 1.00 [facility] Comment on above: Performed By: #### C BC #### [facility] [address] [place] [address] Monocytes/100 WBC (Bld) 6.5 % Normal 2.0 - 10.0 [facility] Comment on above: Performed By: #### C BC #### [facility] [address] [place] [address] Neutrophils (Bld) [#/Vol] 4.32 10*3/uL Normal 1.20 - 7.70 [facility] Comment on above: Performed By: #### C BC #### [facility] [address] [place] [address] Neutrophils/100 WBC (Bld) 57.2 % Normal 40.0 - 80.0 [facility] Comment on above: Performed By: #### C BC #### [facility] [address] [place] [address] NUCLEATED RBC 0.0 /100 WBC Normal 0.0-0.0 [facility] Comment on above: Performed By: #### C BC #### [facility] [address] [place] [address] Platelets (Bld) [#/Vol] 228 10*3/uL Normal 150 - 450 [facility] Comment on above: Performed By: #### C BC #### [facility] [address] [place] [address] RBC 3.39 x10E12/L Low 4.00 - 5.20 [facility] Comment on above: Performed By: #### C BC #### [facility] [address] [place] [address] WBC (Bld) [#/Vol] 7.6 10*3/uL Normal 4.4 - 11.3 [facility] Comment on above: Performed By: #### C BC #### [facility] [address] [place] [address] Complete Blood Count + Diffe rentialon 09-23-2021 [...] % See Below MG-Gastroen terology-Rosendo ell 6 [facility] Work Phone: Comment on above: Reference [...] 10*3/uL 4.4 - 11.3 MG-Gas troen terology-Ros[facility] 6 [facility] Work Phone: Complete Blood Count + Differential 0.03 {x10E9/L} See Below MG-Gastroen terology-Rosendo ell 6 [facility] Work Phone: Comment on above: Reference Range: 0.0 0 - 0.10 Complete Blood Count + Differential 0.27 {x10E9/L} See Below MG-Gastroen terology-Rosendo ell 6 [facility] Work Phone: Comment on above: Reference Range: 0.0 0 - 0.70 Complete Blood Count + Differential 0.49 {x10E9/L} See Below MG-Gastroen terology-Rosendo ell 6 [facility] Work Phone: Comment on above: Reference Range: 0.1 0 - 1.00 Complete Blood Count + Differential 2.41 {x10E9/L} See Below MG-Gastroen terology-[facility] 6 [facility] Work Phone: Comment on above: Reference Range: 1.2 0 - 4.80 Complete Blood Count + Differential 4.32 {x10E9/L} See Below MG-Gastroen terology-Rosendo ell 6 [facility] Work Phone: Comment on above: Reference Range: 1.2 0 - 7.70 Complete Blood Count + Differential 3.6 % 0.0 - 6.0 MG-Gastroen terology-Rosendo ell 6 [facility] Work Phone: Complete Blood Count + Differential 0.4 % 0.0 - 0.9 MG-Gastroen terology-Rosendo lwell 6 [facility] Work Phone: Comment on above: Immature [...] threshold See Below MG-Gastroen terology-Rosendo gretaell 6 [facility] Work Phone: Comment on above: Reference Range: 12. 0 - 16.0 MCHC (RBC) [Mass/Vol] 32.5 g/dL See Below [facility] I Work Phone: Comment on above: Reference Range: 32. 0 - 36.0 MCV (RBC) [Entitic vol] 92 fL 80 - 100 M G-Gastroen carlos alberto-Ros[facility] 6 I Work Phone: Platelets (Bld) [#/Vol] 244 10*3/uL 150 - 450 MG-Gastroen carlos alberto-Rosendo gretaell 6 I Work Phone: RBC (Bld) [#/Vol] 3.33 {x10E12/L} below low threshold See Below MG-Gastroen terology-Rosendo gretaell 6 I Work Phone: Comment on above: Reference Range: 4.0 0 - 5.20 WBC (Bld) [#/Vol] 8.6 10*3/uL 4.4 - 11.3 MG-Gas troen terology-Rosendo [facility] 6 I Work Phone: MAGNESIUMon 09-23-2021 Magnesium [Mass/Vol] 1.68 mg/dL Normal 1.60 - 2.40 [facility] Comment on above: Performed By: #### C BC #### [facility] [address] [place] [address] Magnesium, Serumon Magnesium [Mass/Vol] 1.68 mg/dL See [...] (Advanced Practice Nurse) done by Ambrocio Izaguirre ([facility]) Discharge - Partial Reconciliation: 23-Sep-2021 13:21 by: Ambrocio Izaguirre ([facility]) Discharge - Partial Reconciliation: 24-Sep-2021 10:12 by: Ambrocio Izaguirre ([facility]) Discharge - Partial Reconciliation: 30-Sep-2021 14:12 by: Concetta Shi ([facility]) Discharge - Partial Reconciliation: 30-Sep-2021 14:14 by: Concetta Shi ([facility]) Discharge - Reconciliation: 30-Sep-2021 14:24 by: Concetta Shi ([facility]) Discharge - Reset to Incomplete: 02-Oct-2021 15:36 by: Ambrocio Izaguirre ([facility]) Discharge - Reconciliation: 02-Oct-2021 15:40 by: Ambrocio Izaguirre ([facility]) Discharge - Reset to Incomplete: 02-Oct-2021 15:57 by: Ambrocio Izaguirre ([facility]) Discharge - Reconciliation: 02-Oct-2021 15:58 by: Ambrocio Izaguirre ([facility]) [facility]ations [facility] DIS[facility]GE DateReconciliation Comment/ Additional [...] not required (more content not included)... Normal [facility] PATH REVIEW-IMMUNOHEMATOLOGY on 09-23-2021 PATH REV-IMMUNOHEMOTOL LETA Normal [facility] Comment on above: Result Comment: [...] PATIENT. Performed By: #### A FPA3 #### [facility] [address] [place] [address] RENAL FUNCTION PANELon 09-23 Albumin [Mass/Vol] 2.7 g/dL Low 3.4 - 5.0 [facility] Comment on above: Performed By: #### V FPA3 #### [facility] [address] [place] [address] Anion gap [Moles/Vol] 10 mmol/L Normal 10 - 20 [facility] Comment on above: Performed By: #### V FPA3 #### [facility] [address] [place] [address] Calcium [Mass/Vol] 7.9 mg/dL Low 8.6 - 10.6 [facility] Comment on above: Performed By: #### V FPA3 #### [facility] [address] [place] [address] Chloride [Moles/Vol] 108 mmol/L High 98 - 107 [facility] Comment on above: Performed By: #### V FPA3 #### [facility] [address] [place] [address] Creatinine [Mass/Vol] 0.39 mg/dL Low 0.50 - 1.05 [facility] Comment on above: Performed By: #### V FPA3 #### [facility] [address] [place] [address] eGFR FEMALE >90 Normal >90 [facility] Comment on above: Result Comment: CALC ULATIONS OF ESTIMATED GFR ARE PERFORMED USING THE 2020 CKD-EPI STUDY REFIT EQUATION WITHOUT THE RACE VARIABLE FOR THE IDMS-TRACEABLE CREATININE METHODS. https://jasn.asnjournals.org/content/early/ASN.729 1059045 Performed By: #### V FPA3 #### [facility] [address] [place] [address] Glucose [Mass/Vol] 87 mg/dL Normal 74 - 99 [facility] Comment on above: Performed By: #### V FPA3 #### [facility] [address] [place] [address] HCO3 (Bld) [Moles/Vol] 29 mmol/L Normal 21 - 32 [facility] Comment on above: Performed By: #### V FPA3 #### [facility] [address] [place] [address] Phosphate [Mass/Vol] 2.7 mg/dL Normal 2.5 - 4.9 [facility] Comment on above: Result Comment: The performance characteristics of phosphorus testing in heparinized plasma have been validated by the individual laboratory site where testing is performed. Testing on heparinized plasma is not approved by the FDA; however, such approval is not necessary. Performed By: #### V FPA3 #### [facility] [address] [place] [address] Potassium [Moles/Vol] 3.6 mmol/L Normal 3.5 - 5.3 [facility] Comment on above: Performed By: #### V FPA3 #### [facility] [address] [place] [address] Sodium [Moles/Vol] 143 mmol/L Normal 136 - 145 [facility] Comment on above: Performed By: #### V FPA3 #### [facility] [address] [place] [address] Urea nitrogen [Mass/Vol] 9 mg/dL Normal 6 - 23 [facility] Comment on above: Performed By: #### V FPA3 #### [facility] [address] [place] [address] Rehab Note-individual therap yon 09-23-2021 Rehab Note-individual therapy Rehab: Info: Disciplinephysical therapist Mode of Treatmentphysical therapy; individual therapy Time IN14:50 Time OUT15:29 Total Treatment [id number] Patient in ... at end of sessionbed, [...] sit to supine; rolling right Roll Left [place] (Bed Mobility)verbal cues; maximum assist (25% patient effort); 1 person assist Roll Right [place] (Bed Mobility)maximum assist (25% patient effort); verbal cues; 1 person assist Scoot/Bridge [place] (Bed Mobility)verbal cues; maximum assist (25% patient effort); 2 person assist; boost HOB Yywiyp-zr-Gmd [place] (Bed Mobility)verbal cues; maximum assist (25% patient effort); 1 person assist Pui-tn-Tazjet [place] (Bed Mobility)set up; verbal cues; maximum assist (25% patient effort); 1 person assist Assistive Device (Bed Mobility)bed rails; draw sheet Transfer Assessment/Interventionss it to stand transfer; stand to sit transfer Sit-Stand [place] (Transfers)2 person assist; moderate assist (50% patient effort) Sit-Stand Assistive Device (Transfers)B arm-in-arm assist Stand-Sit [place] (Transfers)2 person assist; moderate assist (50% patient [...] 23-Sep-2021 15:50 by Boone Broussard (PT) Normal [facility] Renal Function Panelon 09-23 Albumin [...] Phone: Renal Function Panel >90 >90 [facility] Work Phone: Comment on above: CALCULATIONS OF IVY MATED GFR ARE PERFORMED USING THE 2020 CKD-EPI STUDY REFIT EQUATION WITHOUT THE RACE VARIABLE FOR THE IDMS-TRACEABLE CREATININE METHODS.https://jasn.asnjournals.org/content/ /ASN.3783873179 ANTIBODY IDENT.on 09-22-2021 ANTIBODY IDENT. Anti-E Normal [facility] Comment on above: Performed By: #### V FPA3 #### [facility] [address] [place] [address] CBCon 09-22-2021 Erythrocyte distribution width (RBC) [Ratio] 13.2 % Normal 11.5 - 14.5 [facility] Comment on above: Performed By: #### V FPA3 #### [facility] [address] [place] [address] Hematocrit (Bld) [Volume fraction] 30.6 % Low 36.0 - 46.0 [facility] Comment on above: Performed By: #### V FPA3 #### [facility] [address] [place] [address] Hemoglobin (Bld) [Mass/Vol] 10.2 g/dL Low 12.0 - 16.0 [facility] Comment on above: Performed By: #### V FPA3 #### [facility] [address] [place] [address] MCHC (RBC) [Mass/Vol] 33.3 g/dL Normal 32.0 - 36.0 [facility] Comment on above: Performed By: #### V FPA3 #### [facility] [address] [place] [address] MCV (RBC) [Entitic vol] 91 fL Normal 80 - 100 [facility] Comment on above: Performed By: #### V FPA3 #### [facility] [address] [place] [address] NUCLEATED RBC 0.0 /100 WBC Normal 0.0-0.0 [facility] Comment on above: Performed By: #### V FPA3 #### [facility] [address] [place] [address] Platelets (Bld) [#/Vol] 215 10*3/uL Normal 150 - 450 [facility] Comment on above: Performed By: #### V FPA3 #### [facility] [address] [place] [address] RBC 3.37 x10E12/L Low 4.00 - 5.20 [facility] Comment on above: Performed By: #### V FPA3 #### [facility] [address] [place] [address] WBC (Bld) [#/Vol] 9.6 10*3/uL Normal 4.4 - 11.3 [facility] Comment on above: Performed By: #### V FPA3 #### [facility] [address] [place] [address] CBC AND DIFFERENTIALon 09-22 % AUTOMATED IMMATURE GRAN 0.4 % Normal 0.0 - 0.9 [facility] Comment on above: Result Comment: Jaleesa ture Granulocyte Count (IG) includes promyelocytes, myelocytes and metamyelocytes but does not include bands. Percent differential counts (%) should be interpreted in the context of the absolute cell counts (cells/L). Performed By: #### C BCDF ####[id number] [place] [address] Basophils (Bld) [#/Vol] 0.02 10*3/uL Normal 0.00 - 0.10 [facility] Comment on above: Performed By: #### C BCDF ####[id number] [place] [address] Basophils/100 WBC (Bld) 0.2 % Normal 0.0 - 2.0 [facility] Comment on above: Performed By: #### C BCDF ####[id number] [place] [address] Eosinophils (Bld) [#/Vol] 0.04 10*3/uL Normal 0.00 - 0.70 [facility] Comment on above: Performed By: #### C BCDF ####[id number] [place] [address] Eosinophils/100 WBC (Bld) 0.4 % Normal 0.0 - 6.0 [facility] Comment on above: Performed By: #### C BCDF ####[id number] [place] [address] Erythrocyte distribution width (RBC) [Ratio] 13.2 % Normal 11.5 - 14.5 [facility] Comment on above: Performed By: #### C BCDF ####[id number] [place] [address] Hematocrit (Bld) [Volume fraction] 30.6 % Low 36.0 - 46.0 [facility] Comment on above: Performed By: #### C BCDF ####[id number] [place] [address] Hemoglobin (Bld) [Mass/Vol] 10.3 g/dL Low 12.0 - 16.0 [facility] Comment on above: Performed By: #### C BCDF ####[id number] [place] [address] Lymphocytes (Bld) [#/Vol] 2.19 10*3/uL Normal 1.20 - 4.80 [facility] Comment on above: Performed By: #### C BCDF ####[id number] [place] [address] Lymphocytes/100 WBC (Bld) 19.9 % Normal 13.0 - 44.0 [facility] Comment on above: Performed By: #### C BCDF ####[id number] [place] [address] MCHC (RBC) [Mass/Vol] 33.7 g/dL Normal 32.0 - 36.0 [facility] Comment on above: Performed By: #### C BCDF ####[id number] [place] [address] MCV (RBC) [Entitic vol] 90 fL Normal 80 - 100 [facility] Comment on above: Performed By: #### C BCDF ####[id number] [place] [address] Monocytes (Bld) [#/Vol] 0.71 10*3/uL Normal 0.10 - 1.00 [facility] Comment on above: Performed By: #### C BCDF ####[id number] [place] [address] Monocytes/100 WBC (Bld) 6.5 % Normal 2.0 - 10.0 [facility] Comment on above: Performed By: #### C BCDF ####[id number] [place] [address] Neutrophils (Bld) [#/Vol] 7.98 10*3/uL High 1.20 - 7.70 [facility] Comment on above: Performed By: #### C BCDF ####[id number] [place] [address] Neutrophils/100 WBC (Bld) 72.6 % Normal 40.0 - 80.0 [facility] Comment on above: Performed By: #### C BCDF ####[id number] [place] [address] NUCLEATED RBC 0.0 /100 WBC Normal 0.0-0.0 [facility] Comment on above: Performed By: #### C BCDF ####[id number] [place] [address] Platelets (Bld) [#/Vol] 242 10*3/uL Normal 150 - 450 [facility] Comment on above: Performed By: #### C BCDF ####[id number] [place] [address] RBC 3.39 x10E12/L Low 4.00 - 5.20 [facility] Comment on above: Performed By: #### C BCDF ####[id number] [place] [address] WBC (Bld) [#/Vol] 11.0 10*3/uL Normal 4.4 - 11.3 [facility] Comment on above: Performed By: #### C BCDF ####[id number] [place] [address] Complete Blood Count + Diffe vidya 09-22-2021 [...] with at bedside. She is currently on WATCH LEADER for pain, and reports being tired this [...] this time. Objective: Objective Information: T PRBPSpO2 [id number]/5792% Date/Time09/22 0:001/18 8:001/18 8:001/18 8:001/18 8:00 Range(36.3C [...] Fair. Medications: Continuous Medications ------- 1. HYDROmorphone WATCH LEADER 25 mg/ NaCL 0.9% 50 mL: 2.6 mg/hr IV WATCH LEADER 2. Sodium Chloride 0.9% Infusion: 1000 mL [...] from Suboxone (more content not included)... Normal [facility] Daily Progress Note-Nuha stearns 09-22-2021 Daily Progress Note-Neurosurgery Service: Neurosurgery Subjective Data: MORALES LEE is a 46 year old Female who is Hospital Day # 8 and POD #1 for posterior L4-L5 decompression;posterior L4-L5 arthrodesis. Objective Data: Objective Information: T PRBPSpO2 [id number]/5895% Date/Time09/22 0:00118 0:00118 0:00118 0:00118 0:00 Range(36.2C - 36.8C ) (82 - 109 ) (12 - 20 ) (85 - 132 )/ (49 - 89 ) (94% - 100% ) As of 21-Sep-2021 17:00:00, patient is on 4 L/min of oxygen via nasal cannula. Pain reported at 09/21 16:33: 5 = Moderate ---- Intake and Output ----- Mn/Dy/Year TimeIntakeOutputNet Sep 20, 2021 10:00 [id number] Sep 20, 2021 6:00 [id number] The Intake and Output Totals for the last 24 hours are: IntakeOutputNet [id number] Physical Exam by System: Neurological: A&Ox3 RUE [...] Chronic pain recs- intra-op ketamine, meloxicam post-op, WATCH LEADER until good PT eval, Suboxone as OP COWS psych recs alvares for retention SCD's, [facility] Attestation: Note Completion: I am a: Resident/Fellow [...] the note. I personally evaluated the patient [id number] Electronic Signatures: Fidel Maciel (Resident)) (Signed 22-Sep-2021 00:35) Authored: Service, Subjective Data, Objective Data, Assessment and Plan, Note Completion Lex Frederick) (Signed 22-Sep-2021 10:31) Authored: Note Completion Co-Signer: Service, Subjective Data, Objective Data, Assessment and Plan, Note Completion Last Updated: 22-Sep-2021 10:31 by Lex Frederick) [facility] Discharge [id number] Discharge Profile2 Discharge Orders: Anticipated Discharge Date: Anticipated Discharge [id number] Problem List: Additional Dx: Spinal stenosis of [...] Please call your Neurosurgeon's office (Dr. Frederick [phone]) if you have any questions. -If you [...] or twist. Instead, bend at knees to cone picker objects. Wound Care: Inspect your incision [...] taking Acetamin (more content not included)... Normal [facility] LACTATEon 09-22-2021 Lactate [Moles/Vol] 0.8 mmol/L Normal 0.4 - 2.0 [facility] Comment on above: Result Comment: Trina puncture immediately after or during the administration of Metamizole may lead to falsely low results. Testing should be performed immediately prior to Metamizole dosing. Performed By: #### C BC #### [facility] [address] [place] [address] Laboratory - Hematology and Cell countson 09-22-2021 [...] threshold See Below MG-Gastroen terology-Rosendo [facility] 6 [facility] Work Phone: Comment on above: Reference Range: 12. 0 - 16.0 MCHC (RBC) [Mass/Vol] 33.3 g/dL See Below MG- Gastroen terology-Rosendo [facility] 6 I Work Phone: Comment on above: Reference Range: 32. 0 - 36.0 MCV (RBC) [Entitic vol] 91 fL 80 - 100 M G-Gastroen terology-Rosendo [facility] 6 [facility] Work Phone: Platelets (Bld) [#/Vol] 215 10*3/uL 150 - 450 MG-Gastroen terology-Rosendo [facility] 6 [facility] Work Phone: RBC (Bld) [#/Vol] 3.37 {x10E12/L} below low threshold See Below MG-Gastroen terology-[facility] 6 [facility] Work Phone: Comment on above: Reference Range: 4.0 0 - 5.20 WBC (Bld) [#/Vol] 9.6 10*3/uL 4.4 - 11.3 MG-Gas troen terology-Rosendo [facility] 6 [facility] Work Phone: Lactate, Levelon 09-22-2021 Lactate [Moles/Vol] 0.8 mmol/L 0.4 - 2.0 MG-Ga stroen terology-Rosendo [facility] 6 [facility] Work Phone: Comment on above: Venipuncture [...] safety. Time IN10:50 Time OUT11:40 Total Treatment Aibkqvu02 Patient in ... at end of sessionbed, 3 railings up; alarm on Communicated with ... at end of sessionbedside nurse Patient Effortgood Symptoms Noted During/After Treatmentfatigue; increased pain Patient Profile Reviewedyes Onset of Illness/Injury or Date of Fykctvq74-Gro-1832 Reason for Referral-09/18/21: s/p exploration of spinal [...] EOB sitting. Pertinent History of Current Functional Ogvkena87 y/o with hx of HTN, C6-7 ACDF, [...] TubesIV; triple lumen; telemetry; urethral catheter indwelling; WATCH LEADER pump, DAVOL drain, wound vac O2 Deliverynasal cannula; 4L Pre Treatment Patient Positionsupine Pre Treatment Blood Pressure Drkhmjdf64 mmHg Pre Treatment Diastolic (mm Hg)46 mmHg Pre Treatment Heart Rate (beats/min)67 Pre Treatment Respiratory Rate (breaths/min)19 Pre Treatment SpO2 (%)96 % Pre Treatment Oxygen Deliverysupplemental O2 Pre Treatment CommentsMAP 56 During Treatment Patient Positionsitting During Treatment Blood Pressure Tmrpbjhd87 mmHg During Treatment Diastolic (mm Hg)77 mmHg [...] to sit; sit to supine Roll Left [place] (Bed Mobility)set up; verbal cues; 2 person assist; Pt required assist to bend BLE at (more content not included)... Normal [facility] PATH REVIEW-IMMUNOHEMATOLOGY on 09-22-2021 PATH REV-IMMUNOHEMOTOL ZURDO Normal [facility] Comment on above: Result Comment: [...] THIS PATIENT. Performed By: #### C #### [facility] [address] [place] [address] PT Evaluation n0-lk-eizyukot t - co-treatment with OT to maxion 09-22-2021 PT Evaluation q7-je-bwjkqaqrx - co-treatment with OT to [facility] Rehab: Info: Mode of Treatmentphysical therapy; co-treatment; co-treatment with OT to maximize safety, mobility and ADL participation Time IN10:50 Time OUT11:40 Total Treatment Pgnidwy30 Patient in ... at end of sessionbed, 3 railings up; alarm on Communicated with ... at end of sessionbedside nurse Patient Effortgood Symptoms Noted During/After Treatmentfatigue; increased pain Patient Profile Reviewedyes Onset of Illness/Injury or Date of Dyhrvhg98-Msy-3388 Reason for Referral-09/18/21: s/p exploration of spinal [...] TubesIV; triple lumen; telemetry; urethral catheter indwelling; WATCH LEADER pump, DAVOL drain, wound vac O2 Deliverynasal cannula; 4L Pre Treatment Patient Positionsupine Pre Treatment Blood Pressure Buuwenfj40 mmHg Pre Treatment Diastolic (mm Hg)46 mmHg Pre Treatment Heart Rate (beats/min)67 Pre Treatment SpO2 (%)96 % Pre Treatment Oxygen Deliverysupplemental O2 During Treatment Patient Positionsitting During Treatment Blood Pressure Yusphjsx51 mmHg During Treatment Diastolic (mm Hg)77 mmHg [...] sit to supine; rolling right Roll Left [place] (Bed Mobility)verbal cues; 2 person assist; Pt required assist to bend BLE at knees and to initiate turn at shoulders and hips, verbal cues for grasp on bed rail, technique, direction follow, and encouragement.; maximum assist (25% patient effort) Roll Right [place] (Bed Mobility)2 person assist; maximum assist (25% patient effort); verbal cues Scoot/Bridge [place] (Bed Mobility)verbal cues; maximum assist (25% patient effort); 2 person assist; boost HOB Jxdwkr-aq-Eqg [place] (Bed Mobility)verbal cues; maximum assist (25% patient effort); 1 person assist Gyh-lw-Keqryx [place] (Bed Mobility)set up; verbal cues; maximum assist (25% patient effort); 1 person assist Assistive Device (Bed Mobility)bed rails; draw sheet Impairments Impacting Function (Mobility)balance; cognition; endurance/activity tolerance; pain; strength; postural/trunk control; motor control Motor: Sitting, Static (Balance)SBA Sitting, Dynamic (Balance)CGA Fnd-ie-Shkjk (Balance)MADELIN this visit. Pt hypotensive Sensory: Pre-Treatment Pain Rating7/10 Post-Treatment Pain Rating7/10 Comment, Pre/Post Treatment PainPt reported pain throughout buttocks and back, utilized WATCH LEADER pump as needed. Pain LimitationFunctional mobility limited due pain; ADLs/IADLs limited due to pain; Participation limited by pain; RN or team was notified of limitations due to p (more content not included)... Normal [facility] RENAL FUNCTION PANELon 09-22 Albumin [Mass/Vol] 2.7 g/dL Low 3.4 - 5.0 [facility] Comment on above: Performed By: #### C BC #### [facility] [address] [place] [address] Anion gap [Moles/Vol] 10 mmol/L Normal 10 - 20 [facility] Comment on above: Performed By: #### C BC #### [place] [address] [place] [address] Calcium [Mass/Vol] 7.8 mg/dL Low 8.6 - 10.6 [facility] Comment on above: Performed By: #### C BC #### [facility] [address] [place] [address] Chloride [Moles/Vol] 105 mmol/L Normal 98 - 107 [facility] Comment on above: Performed By: #### C BC #### [facility] [address] [place] [address] Creatinine [Mass/Vol] 0.49 mg/dL Low 0.50 - 1.05 [facility] Comment on above: Performed By: #### C BC #### [place] [address] [place] [address] eGFR FEMALE >90 Normal >90 [facility] Comment on above: Result Comment: CALC ULATIONS OF ESTIMATED GFR ARE PERFORMED USING THE 2020 CKD-EPI STUDY REFIT EQUATION WITHOUT THE RACE VARIABLE FOR THE IDMS-TRACEABLE CREATININE METHODS. https://jasn.asnjournals.org/content/early//ASN.219 9552791 Performed By: #### C BC #### [facility] [address] [place] [address] Glucose [Mass/Vol] 93 mg/dL Normal 74 - 99 [facility] Comment on above: Performed By: #### C BC #### [facility] [address] [place] [address] HCO3 (Bld) [Moles/Vol] 29 mmol/L Normal 21 - 32 [facility] Comment on above: Performed By: #### C BC #### [facility] [address] [place] [address] Phosphate [Mass/Vol] 2.4 mg/dL Low 2.5 - 4.9 [facility] Comment on above: Result Comment: The performance characteristics of phosphorus testing in heparinized plasma have been validated by the individual laboratory site where testing is performed. Testing on heparinized plasma is not approved by the FDA; however, such approval is not necessary. Performed By: #### C BC #### [facility] [address] [place] [address] Potassium [Moles/Vol] 4.3 mmol/L Normal 3.5 - 5.3 [facility] Comment on above: Performed By: #### C BC #### [facility] [address] [place] [address] Sodium [Moles/Vol] 140 mmol/L Normal 136 - 145 [facility] Comment on above: Performed By: #### C BC #### [facility] [address] [place] [address] Urea nitrogen [Mass/Vol] 9 mg/dL Normal 6 - 23 [facility] Comment on above: Performed By: #### C BC #### [facility] [address] [place] [address] Renal Function Panelon 09-22 Albumin BCP dye [...] - 5.3 MG- Gastroen terology-[facility]endo [place] 6 [facility] Work Phone: Sodium [Moles/Vol] 140 mmol/L 136 - 145 MG-Gas troen terology-[facility]endo [place] 6 I Work Phone: Urea nitrogen [Mass/Vol] 9 mg/dL 6 - 23 MG-Gastroen terology-[facility]endo [place] 6 I Work Phone: Renal Function Panel >90 >90 MG-G astroen terology-[facility]endo [place] 6 [facility] Work Phone: Comment on above: CALCULATIONS OF IVY MATED GFR ARE PERFORMED USING THE 2020 CKD-EPI STUDY REFIT EQUATION WITHOUT THE RACE VARIABLE FOR THE IDMS-TRACEABLE CREATININE METHODS.https://jasn.asnjournals.org/content/ /ASN.7011832125 UA MICROSCOPICon 09-22-2021 RBC 6 /HPF Abnormal 0-5 [facility] Comment on above: Performed By: #### C BC #### [facility] [address] [place] [address] SQUAMOUS EPITH. CELLS 1 /HPF Normal [facility] Comment on above: Performed By: #### C BC #### [facility] [address] [place] [address] WBC 8 /HPF Abnormal 0-5 [facility] Comment on above: Performed By: #### C BC #### [facility] [address] [place] [address] URINALYSIS WITH CULTURE IF I NDICATEDon 09-22-2021 Appearance (U) CLEAR Normal CLEAR [facility] Comment on above: Performed By: #### U ARFX ####[id number] [place] [address] Bilirubin Ql (U) Negative Normal NEGATIVE [facility] Comment on above: Performed By: #### U ARFX ####[id number] [place] [address] Color (U) MIRANDA Normal STRAW,YELL OW [facility] Comment on above: Performed By: #### U ARFX ####[id number] [place] [address] Glucose Ql (U) Negative Normal NEGATIVE [facility] Comment on above: Performed By: #### U ARFX ####[id number] [place] [address] Hemoglobin Ql (U) Negative Normal NEGATIVE [facility] Comment on above: Performed By: #### U ARFX ####[id number] [place] [address] Ketones Ql (U) 20 (1+) Abnormal NEGATIVE [facility] Comment on above: Performed By: #### U ARFX ####[id number] [place] [address] Leukocyte esterase Test strip Ql (U) Negative Normal NEGATIVE [facility] Comment on above: Performed By: #### U ARFX ####[id number] [place] [address] Nitrite Ql (U) Negative Normal NEGATIVE [facility] Comment on above: Performed By: #### U ARFX ####[id number] [place] [address] pH (U) 5.0 [pH] Normal 5.0 - 8.0 [facility] Comment on above: Performed By: #### U ARFX ####[id number] [place] [address] Protein Ql (U) 30 (1+) Abnormal NEGATIVE [facility] Comment on above: Performed By: #### U ARFX ####[id number] [place] [address] Specific gravity (U) [Rel density] 1.040 High 1.005 - 1.035 [facility] Comment on above: Performed By: #### U ARFX ####[id number] [place] [address] Urobilinogen (U) [Mass/Vol] 2.0 mg/dL High 0.0 - 1.9 [facility] Comment on above: Result Comment: [...] positive urobilinogen. Performed By: #### U ARFX ####[id number] [place] [address] Lab Specimen Source Normal [facility] Comment on above: Performed By: #### U ARFX ####[id number] [place] [address] Performed By: #### C BC #### [facility] [address] [place] [address] Color (U) MIRANDA See Below MG-Gastroen terology-Rosendo [...] CULTURE,BACTERIALon URINE CULTURE,BACTERIAL PATIENT: Fay LEE LOCATION: [place] [address] BILL#: [id number] : 71 AGE: SEX: F ORDERED BY: AMBROCIO IZAGUIRRE SOURCE: URINE COLLECTED: 09/22/21 12:59 ANTIBIOTICS AT [facility].: RECEIVED : 09/22/21 14:59 SITE: R E S U L T S URINE CULTURE,BACTERIAL FINAL 09/23/21 09:04 NO SIGNIFICANT GROWTH. Normal [facility] Comment on above: Performed By: #### C BC #### [facility] [address] [place] [address] Urinalysis, Microscopicon Urinalysis, Microscopic 1 {/HPF} M G-Gastroen terology-[facility]endo [place] 6 I Work Phone: Urinalysis, Microscopic 6 {/HPF} Abnormal 0-5 M G-Gastroen terology-[place]endo [place] 6 I Work Phone: Urinalysis, Microscopic 8 {/HPF} Abnormal 0-5 M G-Gastroen terology-[facility]endo [place] 6 I Work Phone: Comment on above: SOURCE: CBCon 09-21-2021 Erythrocyte distribution width (RBC) [Ratio] 13.1 % Normal 11.5 - 14.5 [facility] Comment on above: Performed By: #### R ENAL #### [facility] [address] [place] [address] Hematocrit (Bld) [Volume fraction] 34.5 % Low 36.0 - 46.0 [facility] Comment on above: Performed By: #### R ENAL #### [facility] [address] [place] [address] Hemoglobin (Bld) [Mass/Vol] 11.4 g/dL Low 12.0 - 16.0 [facility] Comment on above: Performed By: #### R ENAL #### [facility] [address] [place] [address] MCHC (RBC) [Mass/Vol] 33.0 g/dL Normal 32.0 - 36.0 [facility] Comment on above: Performed By: #### R ENAL #### [facility] [address] [place] [address] MCV (RBC) [Entitic vol] 91 fL Normal 80 - 100 U [facility] Comment on above: Performed By: #### R ENAL #### [facility] [address] [place] [address] NUCLEATED RBC 0.0 /100 WBC Normal 0.0-0.0 [facility] Comment on above: Performed By: #### R ENAL #### [facility] [address] [place] [address] Platelets (Bld) [#/Vol] 269 10*3/uL Normal 150 - 450 [facility] Comment on above: Performed By: #### R ENAL #### [facility] [address] [place] [address] RBC 3.81 x10E12/L Low 4.00 - 5.20 [facility] Comment on above: Performed By: #### R ENAL #### [facility] [address] [place] [address] WBC (Bld) [#/Vol] 14.6 10*3/uL High 4.4 - 11.3 [facility] Comment on above: Performed By: #### R ENAL #### [facility] [address] [place] [address] Erythrocyte distribution width (RBC) [Ratio] 13.2 % Normal 11.5 - 14.5 [facility] Comment on above: Performed By: #### R ENAL #### [facility] [address] [place] [address] Hematocrit (Bld) [Volume fraction] 35.8 % Low 36.0 - 46.0 [facility] Comment on above: Performed By: #### R ENAL #### [facility] [address] [place] [address] Hemoglobin (Bld) [Mass/Vol] 11.9 g/dL Low 12.0 - 16.0 [facility] Comment on above: Performed By: #### R ENAL #### [facility] [address] [place] [address] MCHC (RBC) [Mass/Vol] 33.2 g/dL Normal 32.0 - 36.0 [facility] Comment on above: Performed By: #### R ENAL #### [facility] [address] [place] [address] MCV (RBC) [Entitic vol] 91 fL Normal 80 - 100 U [facility] Comment on above: Performed By: #### R ENAL #### [facility] [address] [place] [address] NUCLEATED RBC 0.0 /100 WBC Normal 0.0-0.0 [facility] Comment on above: Performed By: #### R ENAL #### [facility] [address] [place] [address] Platelets (Bld) [#/Vol] 215 10*3/uL Normal 150 - 450 [facility] Comment on above: Performed By: #### R ENAL #### [facility] [address] [place] [address] RBC 3.93 x10E12/L Low 4.00 - 5.20 [facility] Comment on above: Performed By: #### R ENAL #### [place] [address] [place] [address] WBC (Bld) [#/Vol] 14.8 10*3/uL High 4.4 - 11.3 [facility] Comment on above: Performed By: #### R ENAL #### [facility] [address] [place] [address] Daily Progress Note-Neurosjudy stearns 09-21-2021 Daily Progress Note-Neurosurgery Service: Neurosurgery Subjective Data: MORALES LEE is a 46 year old Female who is Hospital Day # 7 and POD #3 for 1. Exploration of spinal fusion;2. Reduction of L4/5 dislocation;2. L5-pelvis instrumented fusion with posterolateral arthrodesis;4. Extension of instrumentation with multiple kwame construct and side connectors. Objective Data: Objective Information: T PRBPSpO2 [id number]/8495% Date/Time09/20 15: 4: 4: 4: 4:00 Range(36.9C [...] ----- Mn/Dy/Year TimeIntakeOutputNet Sep 19, 2021 10:00 [id number] Sep 19, 2021 6:00 [id number] The Intake and Output Totals for the last 24 hours are: [facility] [id number] Physical Exam by System: Neurological: A&Ox3 RUE [...] Chronic pain recs- intra-op ketamine, meloxicam post-op, WATCH LEADER until good PT eval, Suboxone as OP [...] the following: I personally evaluated the patient [id number] Comments/ Additional Findings The patient has been [...] inborn buckling of the ligamentum flavum from druze of for significant kyphotic malalignment spine I [...] MRI 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 Normal [facility] Laboratory - Blood bankon ABO [...] lumbar spine September 18, 2021 ACCESSION NUMBER(S): [id number]; [id number] ORDERING CLINICIAN: DEVANTE NUNEZ TECHNIQUE: Sagittal axial [...] Electronically signed by: NATALIA WALL DO Normal [facility] NR MRI T-SPINE WOon 09-21-19 NR MRI T-SPINE WO Patient Name: MORALES LEE STUDY: MRI T-SPINE WO; MRI L-SPINE WO; 09/20/2021 10:40 pm; 09/20/2021 10:42 pm INDICATION: postop foot weakness, Lie Flat: Yes, Pre Med: No . COMPARISON: MRI December 24, [address] of the lumbar spine September 18, 2021 ACCESSION NUMBER(S): [id number]; [id number] ORDERING CLINICIAN: DEVANTE NUNEZ TECHNIQUE: Sagittal axial [...] Electronically signed by: NATALIA WALL DO Normal [facility] No Panel Informationon 09-21 0.0 [...] Preop Checklist Preop Checklist: Preop Checklist: Arrival [id number] Arrival Time11:00 Procedure Typere-exploration of spine Temperature C36.2 degrees C Temperature F97.1 degrees F Heart Rate91 beats per minute Respiratory Rate18 breath per minute Blood Pressure Ejyqdttb632 mm/Hg Blood Pressure Artdridhr48 mm/Hg COVID 19 Results in Last 7 [...] 21-Sep-2021 11:17 by Linh Buchanan (RN) Normal [facility] REQUEST-LEUKOREDUCED RED ANJU LSon 09-21-2021 REQUEST-LEUKOREDUCED RED CELLS ORDER RECD Normal [facility] Comment on above: Performed By: #### A FPA3 #### [facility] [address] [place] [address] TYPE + SCREENon 09-21-2021 ABO TYPE O Normal [facility] Comment on above: Performed By: #### A FPA3 #### [facility] [address] [place] [address] RH TYPE Positive Normal [facility] Comment on above: Performed By: #### A FPA3 #### [facility] [address] [place] [address] ABO TYPE Canceled Normal [facility] Comment on above: Order Comment: VENECIA ESPINO, 09/21/2021 05:08TEST TYPE + SCREEN WAS CANCELLED, 09/21/2021 05:06 NO PHLEB ID ON TUBE. Result Comment: EULA ESPINO, 09/21/2021 05:08 Performed By: #### A FPA3 #### [facility] [address] [place] [address] RH TYPE Canceled Normal [facility] Comment on above: Order Comment: VENECIA ESPINO, 09/21/2021 05:08TEST TYPE + SCREEN WAS CANCELLED, 09/21/2021 05:06 NO PHLEB ID ON TUBE. Result Comment: CALL ED RN AFSANEH ESPINO, 09/21/2021 05:08 Performed By: #### A FPA3 #### [facility] [address] [place] [address] CBCon 09-20-2021 Erythrocyte distribution width (RBC) [Ratio] 13.2 % Normal 11.5 - 14.5 [facility] Comment on above: Performed By: #### C BC #### [facility] [address] [place] [address] Hematocrit (Bld) [Volume fraction] 30.8 % Low 36.0 - 46.0 [facility] Comment on above: Performed By: #### C BC #### [facility] [address] [place] [address] Hemoglobin (Bld) [Mass/Vol] 9.8 g/dL Low 12.0 - 16.0 [facility] Comment on above: Performed By: #### C BC #### [facility] [address] [place] [address] MCHC (RBC) [Mass/Vol] 31.8 g/dL Low 32.0 - 36.0 [facility] Comment on above: Performed By: #### C BC #### [facility] [address] [place] [address] MCV (RBC) [Entitic vol] 93 fL Normal 80 - 100 [facility] Comment on above: Performed By: #### C BC #### [facility] [address] [place] [address] NUCLEATED RBC 0.0 /100 WBC Normal 0.0-0.0 [facility] Comment on above: Performed By: #### C BC #### [facility] [address] [place] [address] Platelets (Bld) [#/Vol] 224 10*3/uL Normal 150 - 450 [facility] Comment on above: Performed By: #### C BC #### [facility] [address] [place] [address] RBC 3.32 x10E12/L Low 4.00 - 5.20 [facility] Comment on above: Performed By: #### C BC #### [facility] [address] [place] [address] WBC (Bld) [#/Vol] 12.1 10*3/uL High 4.4 - 11.3 [facility] Comment on above: Performed By: #### C BC #### [facility] [address] [place] [address] Daily Progress Note-Neurosjudy stearns 09-20-2021 Daily Progress Note-Neurosurgery Service: Neurosurgery Subjective Data: MORALES LEE is a 46 year old Female who is Hospital Day # 6 and POD #2 for 1. Exploration of spinal fusion;2. Reduction of L4/5 dislocation;2. L5-pelvis instrumented fusion with posterolateral arthrodesis;4. Extension of instrumentation with multiple kwame construct and side connectors. Objective Data: Objective Information: T PRBPSpO2 Value36.4873827/5095% Date/Time09/19 16: 1: 16: 1:341 1:34 Range(36.7C - 36.7C ) (84 - 110 ) (18 - 18 ) (82 - 118 )/ (50 - 97 ) (94% - 97% ) As of 19-Sep-2021 08:00:00, patient is on 2 L/min of oxygen via nasal cannula. ---- Intake and Output ----- Mn/Dy/Year [facility]Out[facility] Sep 18, 2021 10:00 [id number] The Intake and Output Totals for the [...] chronic pain recs- intra-op ketamine, meloxicam post-op, WATCH LEADER until good PT eval, Suboxone as OP [...] Updated: 21-Sep-2021 11:28 by Perez Carlisle) Normal [facility] Laboratory - Hematology and Cell [...] 20-Sep-2021 12:25 by Carole Carlos (OT) Normal [facility] PT Evaluation v2-attemptedon 09-20-2021 PT Evaluation v2-attempted Rehab: Info: Mode of Treatmentattempted Time IN12:00 Evaluation Not PerformedPer RN pt not appropriate for therapy, pt continues to have low BP and plan to receive blood, will hold and reattempt as appropriate Electronic Signatures: Kaykay Yoo (PT) (Signed 20-Sep-2021 12:42) Authored: Info Last Updated: 20-Sep-2021 12:42 by Kaykay Yoo (PT) Normal [facility] REQUEST-LEUKOREDUCED RED ANJU LSon 09-20-2021 REQUEST-LEUKOREDUCED RED CELLS ORDER RECD Normal [facility] Comment on above: Performed By: #### R ENAL #### [facility] [address] [place] [address] CBCon 09-19-2021 Erythrocyte distribution width (RBC) [Ratio] 12.4 % Normal 11.5 - 14.5 [facility] Comment on above: Performed By: #### R ENAL #### [facility] [address] [place] [address] Hematocrit (Bld) [Volume fraction] 38.3 % Normal 36.0 - 46.0 [facility] Comment on above: Performed By: #### R ENAL #### [facility] [address] [place] [address] Hemoglobin (Bld) [Mass/Vol] 13.4 g/dL Normal 12.0 - 16.0 [facility] Comment on above: Performed By: #### R ENAL #### [facility] [address] [place] [address] MCHC (RBC) [Mass/Vol] 35.0 g/dL Normal 32.0 - 36.0 [facility] [facility] Comment on above: Performed By: #### R ENAL #### [facility] [address] [place] [address] MCV (RBC) [Entitic vol] 85 fL Normal 80 - 100 U [facility] Comment on above: Performed By: #### R ENAL #### [facility] [address] [place] [address] NUCLEATED RBC 0.0 /100 WBC Normal 0.0-0.0 [facility] Comment on above: Performed By: #### R ENAL #### [facility] [address] [place] [address] Platelets (Bld) [#/Vol] 326 10*3/uL Normal 150 - 450 [facility] Comment on above: Performed By: #### R ENAL #### [facility] [address] [place] [address] RBC 4.51 x10E12/L Normal 4.00 - 5.20 [facility] Comment on above: Performed By: #### R ENAL #### [facility] [address] [place] [address] WBC (Bld) [#/Vol] 20.5 10*3/uL High 4.4 - 11.3 [facility] Comment on above: Performed By: #### R ENAL #### [facility] [address] [place] [address] CBC AND DIFFERENTIALon 09-19 % AUTOMATED IMMATURE GRAN 0.6 % Normal 0.0 - 0.9 [facility] Comment on above: Result Comment: Jaleesa ture Granulocyte Count (IG) includes promyelocytes, myelocytes and metamyelocytes but does not include bands. Percent differential counts (%) should be interpreted in the context of the absolute cell counts (cells/L). Performed By: #### V FPA3 #### [facility] [address] [place] [address] Basophils (Bld) [#/Vol] 0.03 10*3/uL Normal 0.00 - 0.10 [facility] Comment on above: Performed By: #### V FPA3 #### [facility] [address] [place] [address] Basophils/100 WBC (Bld) 0.1 % Normal 0.0 - 2.0 [facility] Comment on above: Performed By: #### V FPA3 #### [facility] [address] [place] [address] Eosinophils (Bld) [#/Vol] 0.01 10*3/uL Normal 0.00 - 0.70 [facility] Comment on above: Performed By: #### V FPA3 #### [facility] [address] [place] [address] Eosinophils/100 WBC (Bld) 0.0 % Normal 0.0 - 6.0 [facility] Comment on above: Performed By: #### V FPA3 #### [facility] [address] [place] [address] Erythrocyte distribution width (RBC) [Ratio] 12.9 % Normal 11.5 - 14.5 [facility] Comment on above: Performed By: #### V FPA3 #### [facility] [address] [place] [address] Hematocrit (Bld) [Volume fraction] 38.3 % Normal 36.0 - 46.0 [facility] Comment on above: Performed By: #### V FPA3 #### [facility] [address] [place] [address] Hemoglobin (Bld) [Mass/Vol] 12.7 g/dL Normal 12.0 - 16.0 [facility] Comment on above: Performed By: #### V FPA3 #### [facility] [address] [place] [address] Lymphocytes (Bld) [#/Vol] 2.89 10*3/uL Normal 1.20 - 4.80 [facility] Comment on above: Performed By: #### V FPA3 #### [facility] [address] [place] [address] Lymphocytes/100 WBC (Bld) 13.5 % Normal 13.0 - 44.0 [facility] Comment on above: Performed By: #### V FPA3 #### [facility] [address] [place] [address] MCHC (RBC) [Mass/Vol] 33.2 g/dL Normal 32.0 - 36.0 [facility] Comment on above: Performed By: #### V FPA3 #### [facility] [address] [place] [address] MCV (RBC) [Entitic vol] 89 fL Normal 80 - 100 [facility] Comment on above: Performed By: #### V FPA3 #### [facility] [address] [place] [address] Monocytes (Bld) [#/Vol] 1.23 10*3/uL High 0.10 - 1.00 [facility] Comment on above: Performed By: #### V FPA3 #### [facility] [address] [place] [address] Monocytes/100 WBC (Bld) 5.7 % Normal 2.0 - 10.0 [facility] Comment on above: Performed By: #### V FPA3 #### [facility] [address] [place] [address] Neutrophils (Bld) [#/Vol] 17.16 10*3/uL High 1.20 - 7.70 [facility] Comment on above: Performed By: #### V FPA3 #### [facility] [address] [place] [address] Neutrophils/100 WBC (Bld) 80.1 % Normal 40.0 - 80.0 [facility] Comment on above: Performed By: #### V FPA3 #### [facility] [address] [place] [address] NUCLEATED RBC 0.0 /100 WBC Normal 0.0-0.0 [facility] Comment on above: Performed By: #### V FPA3 #### [facility] [address] [place] [address] Platelets (Bld) [#/Vol] 401 10*3/uL Normal 150 - 450 [facility] Comment on above: Performed By: #### V FPA3 #### [facility] [address] [place] [address] RBC 4.28 x10E12/L Normal 4.00 - 5.20 [facility] Comment on above: Performed By: #### V FPA3 #### [facility] [address] [place] [address] WBC (Bld) [#/Vol] 21.5 10*3/uL High 4.4 - 11.3 [facility] Comment on above: Performed By: #### V FPA3 #### [facility] [address] [place] [address] COAGULATION SCREENon 022 aPTT Coag (Bld) [Time] 29 s Normal 26 - 39 [facility] Comment on above: Result Comment: Note new reference range as of 08/04/2021 at 10:00am. Performed By: #### R ENAL #### [facility] [address] [place] [address] PT Coag (PPP) [Time] 11.5 s Normal 9.8 - 13.4 [facility] Comment on above: Result Comment: Note new reference range as of 08/04/2021 at 10:00am. Performed By: #### R ENAL #### [facility] [address] [place] [address] PT, INR 1.0 Normal 0.9 - 1.1 [facility] Comment on above: Performed By: #### R ENAL #### [facility] [address] [place] [address] Complete Blood Count + Diffe vidya 09-19-2021 [...] 0.6 % 0.0 - 0.9 [facility]astro[facility] I Work Phone: Comment on [...] connectors. Objective Data: Objective Information: T PRBPSpO2 [id number]/8596% Date/Time09/18 17: 17: 17: 17: 17:40 Range(36.4C [...] ----- Mn/Dy/Year TimeIntakeOutputNet Sep 17, 2021 10:00 [id number] The Intake and Output Totals for the last 24 hours are: IntakeOutputNet [id number] Physical Exam by System: Neurological: A&Ox3 RUE D5, B5, T5, HG5, IO5 LUE D4+, B4+, T4+, HG4+, IO5 RLE HF 4+, KE4+, PF5, DF5 (pain limited) LLE HF 4-, KE4-, PF4, DF5 Recent Lab Results: Results: Recent Arterial Blood Gas Results 09/18/2021 11:48 [id number] 24 h range: ( 219 - 224 ) pH7.44 24 h range: ( 7.44 - 7.45 ) eMU388 24 h range: ( 37 - 40 ) WF5723 24 h range: ( 100 - 100 ) Base Excess2.8 24 h range: ( 1.8 - 2.8 ) Vrdwrayhhbl34.2 24 h range: ( 25.7 - 27.2 [...] the note. I personally evaluated the patient [id number] Comments/ Additional Findings Patients postoperative CT scan [...] Assessment an (more content not included)... Normal [facility] Laboratory - Coagulationon 0 09-19-2021 aPTT Coag (PPP) [Time] 29 s 26 - 39 [facility]astroen terology-[facility] 6 I Work Phone: Comment on [...] [Mass/Vol] 1.59 mg/dL Low 1.60 - 2.40 [facility] Comment on above: Performed By: #### R ENAL #### [facility] [address] [place] [address] PT Evaluation v2-attemptedon 09-19-2021 PT Evaluation v2-attempted Rehab: Info: Mode of Treatmentattempted Time IN11:37 Time OUT11:50 Total Treatment Ftbnhmf99 Evaluation Not PerformedHistory obtained, BP assessed in supine 79/54mmHg, RN notified and redone with 71/51mmHg, will hold PT eval at this time and reattempt as medically appropriate Electronic Signatures: Kaykay Yoo (PT) (Signed 19-Sep-2021 12:14) Authored: Info Last Updated: 19-Sep-2021 12:14 by Kaykay Yoo (PT) Normal [facility] RENAL FUNCTION PANELon 09-19 Albumin [Mass/Vol] 3.4 g/dL Normal 3.4 - 5.0 [facility] Comment on above: Performed By: #### A FPA3 #### [facility] [address] [place] [address] Anion gap [Moles/Vol] 18 mmol/L Normal 10 - 20 [facility] Comment on above: Performed By: #### A FPA3 #### [facility] [address] [place] [address] Calcium [Mass/Vol] 8.3 mg/dL Low 8.6 - 10.6 [facility] Comment on above: Performed By: #### A FPA3 #### [facility] [address] [place] [address] Chloride [Moles/Vol] 100 mmol/L Normal 98 - 107 [facility] Comment on above: Performed By: #### A FPA3 #### [facility] [address] [place] [address] Creatinine [Mass/Vol] 0.60 mg/dL Normal 0.50 - 1.05 [facility] Comment on above: Performed By: #### A FPA3 #### [facility] [address] [place] [address] eGFR FEMALE >90 Normal >90 [facility] Comment on above: Result Comment: CALC ULATIONS OF ESTIMATED GFR ARE PERFORMED USING THE 2020 CKD-EPI STUDY REFIT EQUATION WITHOUT THE RACE VARIABLE FOR THE IDMS-TRACEABLE CREATININE METHODS. https://jasn.asnjournals.org/content/early//ASN.371 8178533 Performed By: #### A FPA3 #### [facility] [address] [place] [address] Glucose [Mass/Vol] 82 mg/dL Normal 74 - 99 [facility] Comment on above: Performed By: #### A FPA3 #### [facility] [address] [place] [address] HCO3 (Bld) [Moles/Vol] 26 mmol/L Normal 21 - 32 [facility] Comment on above: Performed By: #### A FPA3 #### [facility] [address] [place] [address] Phosphate [Mass/Vol] 2.8 mg/dL Normal 2.5 - 4.9 [facility] Comment on above: Result Comment: The performance characteristics of phosphorus testing in heparinized plasma have been validated by the individual laboratory site where testing is performed. Testing on heparinized plasma is not approved by the FDA; however, such approval is not necessary. Performed By: #### A FPA3 #### [facility] [address] [place] [address] Potassium [Moles/Vol] 4.5 mmol/L Normal 3.5 - 5.3 [facility] Comment on above: Performed By: #### A FPA3 #### [facility] [address] [place] [address] Sodium [Moles/Vol] 139 mmol/L Normal 136 - 145 [facility] Comment on above: Performed By: #### A FPA3 #### [facility] [address] [place] [address] Urea nitrogen [Mass/Vol] 9 mg/dL Normal 6 - 23 [facility] Comment on above: Performed By: #### A FPA3 #### [facility] [address] [place] [address] Albumin [Mass/Vol] 3.6 g/dL Normal 3.4 - 5.0 [facility] Comment on above: Performed By: #### R ENAL #### [facility] [address] [place] [address] Anion gap [Moles/Vol] 13 mmol/L Normal 10 - 20 [facility] Comment on above: Performed By: #### R ENAL #### [facility] [address] [place] [address] Calcium [Mass/Vol] 8.9 mg/dL Normal 8.6 - 10.6 [facility] Comment on above: Performed By: #### R ENAL #### [facility] [address] [place] [address] Chloride [Moles/Vol] 100 mmol/L Normal 98 - 107 [facility] Comment on above: Performed By: #### R ENAL #### [facility] [address] [place] [address] Creatinine [Mass/Vol] 0.51 mg/dL Normal 0.50 - 1.05 [facility] Comment on above: Performed By: #### R ENAL #### [facility] [address] [place] [address] eGFR FEMALE >90 Normal >90 [facility] Comment on above: Result Comment: CALC ULATIONS OF ESTIMATED GFR ARE PERFORMED USING THE 2020 CKD-EPI STUDY REFIT EQUATION WITHOUT THE RACE VARIABLE FOR THE IDMS-TRACEABLE CREATININE METHODS. https://jasn.asnjournals.org/content//ASN.671 6898577 Performed By: #### R ENAL #### [facility] [address] [place] [address] Glucose [Mass/Vol] 123 mg/dL High 74 - 99 [facility] Comment on above: Performed By: #### R ENAL #### [facility] [address] [place] [address] HCO3 (Bld) [Moles/Vol] 28 mmol/L Normal 21 - 32 [facility] Comment on above: Performed By: #### R ENAL #### [facility] [address] [place] [address] Phosphate [Mass/Vol] 2.8 mg/dL Normal 2.5 - 4.9 [facility] Comment on above: Result Comment: The performance characteristics of phosphorus testing in heparinized plasma have been validated by the individual laboratory site where testing is performed. Testing on heparinized plasma is not approved by the FDA; however, such approval is not necessary. Performed By: #### R ENAL #### [facility] [address] [place] [address] Potassium [Moles/Vol] 4.3 mmol/L Normal 3.5 - 5.3 [facility] Comment on above: Performed By: #### R ENAL #### [facility] [address] [place] [address] Sodium [Moles/Vol] 137 mmol/L Normal 136 - 145 [facility] Comment on above: Performed By: #### R ENAL #### [facility] [address] [place] [address] Urea nitrogen [Mass/Vol] 8 mg/dL Normal 6 - 23 [facility] Comment on above: Performed By: #### R ENAL #### [facility] [address] [place] [address] Renal Function Panelon 09-19 Albumin BCP dye [Mass/Vol] 3.4 g/dL 3.4 - 5.0 [facility] Work Phone: Anion gap [Moles/Vol] 18 [...] [Mass/Vol] 9 mg/dL 6 - 23 [facility]astro[facility]ology-[facility] 6 I Work Phone: Renal Function Panel >90 >90 [facility]-G astroen terology-[facility] 6 I Work Phone: Comment on above: CALCULATIONS OF IVY MATED GFR ARE PERFORMED USING THE 2020 CKD-EPI STUDY REFIT EQUATION WITHOUT THE RACE VARIABLE FOR THE IDMS-TRACEABLE CREATININE METHODS.https://jasn.asnjournals.org/content/ /ASN.8773233371 ANTIBODY IDENT.on 09-18-2021 ANTIBODY IDENT. Anti-E Normal [facility] Comment on above: Performed By: #### A FPA3 #### [facility] [address] [place] [address] ARTERIAL FULL PANELon 2021 Anion gap [Moles/Vol] 5 mmol/L Low 10 - 25 [facility] Comment on above: Performed By: #### A FPA3 ####[id number] [place] [address] BASE EXCESS-BLOOD 2.8 mmol/L Normal -2.0 - 3.0 [facility] Comment on above: Performed By: #### A FPA3 ####[id number] [place] [address] BICARB, CALCULATED 27.2 mmol/L High 22.0 - 26.0 [facility] Comment on above: Performed By: #### A FPA3 ####[id number] [place] [address] CALCIUM,IONIZED 1.20 mmol/L Normal 1.10 - 1.33 [facility] Comment on above: Performed By: #### A FPA3 ####[id number] [place] [address] Chloride [Moles/Vol] 106 mmol/L Normal 98 - 107 [facility] Comment on above: Performed By: #### A FPA3 ####[id number] [place] [address] Glucose [Mass/Vol] 149 mg/dL High 74 - 99 [facility] Comment on above: Performed By: #### A FPA3 ####[id number] [place] [address] Hematocrit (Bld) [Volume fraction] 38.0 % Normal 36.0 - 46.0 [facility] Comment on above: Performed By: #### A FPA3 ####[id number] [place] [address] HGB,CALCULATED 12.9 g/dL Normal 12.0 - 16.0 [facility] Comment on above: Performed By: #### A FPA3 ####[id number] [place] [address] Lactate [Moles/Vol] 0.9 mmol/L Normal 0.4 - 2.0 [facility] Comment on above: Performed By: #### A FPA3 ####[id number] [place] [address] Oxygen (Bld) [Partial pressure] 219 mm[Hg] High 85 - 95 [facility] Comment on above: Performed By: #### A FPA3 ####[id number] [place] [address] PATIENT TEMPERATURE 37.0 degrees C Normal [facility] Comment on above: Result Comment: NOTE : PATIENT RESULTS ARE NOT CORRECTED FOR TEMPERATURE. Performed By: #### A FPA3 ####[id number] [place] [address] PCO2 40 mmHg Normal 38 - 42 [facility] Comment on above: Performed By: #### A FPA3 ####[id number] [place] [address] pH (Bld) 7.44 [pH] High 7.38 - 7.42 [facility] Comment on above: Performed By: #### A FPA3 ####[id number] [place] [address] Potassium [Moles/Vol] 4.4 mmol/L Normal 3.5 - 5.3 [facility] Comment on above: Performed By: #### A FPA3 ####[id number] [place] [address] SO2 100 % Normal 94 - 100 [facility] Comment on above: Performed By: #### A FPA3 ####[id number] [place] [address] Sodium [Moles/Vol] 134 mmol/L Low 136 - 145 [facility] Comment on above: Performed By: #### A FPA3 ####[id number] [place] [address] Anion gap [Moles/Vol] 7 mmol/L Low 10 - 25 [facility] Comment on above: Performed By: #### A FPA3 #### [facility] [address] [place] [address] BASE EXCESS-BLOOD 1.8 mmol/L Normal -2.0 - 3.0 [facility] Comment on above: Performed By: #### A FPA3 #### [facility] [address] [place] [address] BICARB, CALCULATED 25.7 mmol/L Normal 22.0 - 26.0 [facility] Comment on above: Performed By: #### A FPA3 #### [facility] [address] [place] [address] CALCIUM,IONIZED 1.20 mmol/L Normal 1.10 - 1.33 [facility] Comment on above: Performed By: #### A FPA3 #### [facility] [address] [place] [address] Chloride [Moles/Vol] 105 mmol/L Normal 98 - 107 [facility] Comment on above: Performed By: #### A FPA3 #### [facility] [address] [place] [address] Glucose [Mass/Vol] 174 mg/dL High 74 - 99 [facility] Comment on above: Performed By: #### A FPA3 #### [facility] [address] [place] [address] Hematocrit (Bld) [Volume fraction] 37.0 % Normal 36.0 - 46.0 [facility] Comment on above: Performed By: #### A FPA3 #### [facility] [address] [place] [address] HGB,CALCULATED 12.6 g/dL Normal 12.0 - 16.0 [facility] Comment on above: Performed By: #### A FPA3 #### [facility] [address] [place] [address] Lactate [Moles/Vol] 1.1 mmol/L Normal 0.4 - 2.0 [facility] Comment on above: Performed By: #### A FPA3 #### [facility] [address] [place] [address] Oxygen (Bld) [Partial pressure] 224 mm[Hg] High 85 - 95 [facility] Comment on above: Performed By: #### A FPA3 #### [facility] [address] [place] [address] PATIENT TEMPERATURE 37.0 degrees C Normal [facility] Comment on above: Result Comment: NOTE : PATIENT RESULTS ARE NOT CORRECTED FOR TEMPERATURE. Performed By: #### A FPA3 #### [facility] [address] [place] [address] PCO2 37 mmHg Low 38 - 42 [facility] Comment on above: Performed By: #### A FPA3 #### [facility] [address] [place] [address] pH (Bld) 7.45 [pH] High 7.38 - 7.42 [facility] Comment on above: Performed By: #### A FPA3 #### [facility] [address] [place] [address] Potassium [Moles/Vol] 3.9 mmol/L Normal 3.5 - 5.3 [facility] Comment on above: Performed By: #### A FPA3 #### [facility] [address] [place] [address] SO2 100 % Normal 94 - 100 [facility] Comment on above: Performed By: #### A FPA3 #### [facility] [address] [place] [address] Sodium [Moles/Vol] 134 mmol/L Low 136 - 145 [facility] Comment on above: Performed By: #### A FPA3 #### [facility] [address] [place] [address] CT L Spine without Contrasto n 09-18-2021 [...] connectors. Objective Data: Objective Information: T PRBPSpO2 [id number]/4391% Date/Time09/18 6: 5: 5: 5: 5:56 Range(37C [...] Recent Arterial Blood Gas Results 09/18/2021 11:48 [id number] 24 h range: ( 219 - 224 ) pH7.44 24 h range: ( 7.44 - 7.45 ) gIJ251 24 h range: ( 37 - 40 ) DH9338 24 h range: ( 100 - 100 ) Base Excess2.8 24 h range: ( 1.8 - 2.8 ) Qmtcmizzzdu20.2 24 h range: ( 25.7 - 27.2 ) Assessment and Plan: Code Status: Code StatusFull Code Electronic Signatures: Bryan Mora) (Signed 18-Sep-2021 14:47) Authored: Service, Subjective Data, Objective Data, Assessment and Plan, Note Completion Last Updated: 18-Sep-2021 14:47 by Bryan Mora) Normal [facility] Daily Progress Note-Neurosur jinny 09-18-2021 Daily Progress Note-Neurosurgery Service: Neurosurgery Subjective Data: MORALES LEE is a 46 year old Female who is Hospital Day # 4. Objective Data: Objective Information: T PRBPSpO2 [id number]/4391% Date/Time1/14 6:041/14 5:56114 5:56114 5:561/14 5:56 Range(36.6C [...] Severe ---- Intake and Output ----- Mn/Dy/[facility] Sep 17, 2021 10:00 [id number] Sep 17, 2021 2:00 [id number] The Intake and Output Totals for the [...] the note. I personally evaluated the patient [id number] Electronic Signatures: Fidel Maciel (Resident)) (Signed 18-Sep-2021 06:55) Authored: Service, Subjective Data, Objective Data, Assessment and Plan, Note Completion Lex Frederick) (Signed 19-Sep-2021 10:18) Authored: Note Completion Co-Signer: Service, Subjective Data, Objective Data, Assessment and Plan, Note Completion Last Updated: 19-Sep-2021 10:18 by Lex Frederick) Normal [facility] Laboratory - Chemistry and C [...] dated 10/07/2020. MRI dated 12/11/2020 ACCESSION NUMBER(S): [id number] ORDERING CLINICIAN: ANGELO JUAREZ TECHNIQUE: Thin cut [...] as stated. This study was interpreted at [facility], [place], [place]. Electronically signed by: BOONE LAO MD Normal [facility] No Panel Informationon 09-18 0.0 [...] Respiratory Rate15 breath per minute Blood Pressure Twyyaany16 mm/Hg Blood Pressure Qhmuyilwu32 mm/Hg COVID 19 Results in Last 7 [...] 18-Sep-2021 06:59 by Lian Zuleta (SANAZ) Normal [facility] Radiologyon 09-18-2021 XR Chest Single [...] - 4.9 MG-G astroen terology-[facility] Work Phone: Comment on above: The [...] >90 >90 MG-G astroen terology-[facility] 6 [facility] Work Phone: Comment on above: CALCULATIONS OF IVY MATED GFR ARE PERFORMED USING THE 2020 CKD-EPI STUDY REFIT EQUATION WITHOUT THE RACE VARIABLE FOR THE IDMS-TRACEABLE CREATININE METHODS.https://jasn.asnjournals.org/content/early /ASN.7896114655 TH CHEST; 1 VIEWon 2 TH CHEST; 1 VIEW Patient Name: MORALES LEE STUDY: CHEST; 1 VIEW; 09/18/2021 2:38 pm INDICATION: s/p central line placement (right IJ double lumen) . COMPARISON: Radiograph dated 09/15/2021 ACCESSION NUMBER(S): [id number] ORDERING CLINICIAN: BRYAN MORA FINDINGS: Right IJ [...] Electronically signed by: LORELEI JOHNSTON MD Normal [facility] VENOUS FULL PANELon 09-18-19 22 Anion gap [Moles/Vol] 6 mmol/L Low 10 - 25 [facility] Comment on above: Performed By: #### V FPA3 #### [facility] [address] [place] [address] BASE EXCESS-BLOOD 3.9 mmol/L High -2.0 - 3.0 [facility] Comment on above: Performed By: #### V FPA3 #### [facility] [address] [place] [address] BICARB, CALCULATED 28.5 mmol/L High 22.0 - 26.0 [facility] Comment on above: Performed By: #### V FPA3 #### [facility] [address] [place] [address] CALCIUM,IONIZED 1.17 mmol/L Normal 1.10 - 1.33 [facility] Comment on above: Performed By: #### V FPA3 #### [facility] [address] [place] [address] Chloride [Moles/Vol] 103 mmol/L Normal 98 - 107 [facility] Comment on above: Performed By: #### V FPA3 #### [facility] [address] [place] [address] Glucose [Mass/Vol] 188 mg/dL High 74 - 99 [facility] Comment on above: Performed By: #### V FPA3 #### [facility] [address] [place] [address] Hematocrit (Bld) [Volume fraction] 39.0 % Normal 36.0 - 46.0 [facility] Comment on above: Performed By: #### V FPA3 #### [facility] [address] [place] [address] HGB,CALCULATED 13.3 g/dL Normal 12.0 - 16.0 [facility] Comment on above: Performed By: #### V FPA3 #### [facility] [address] [place] [address] Lactate [Moles/Vol] 1.2 mmol/L Normal 0.4 - 2.0 [facility] Comment on above: Performed By: #### V FPA3 #### [facility] [address] [place] [address] Oxygen (Bld) [Partial pressure] 56 mm[Hg] High 35 - 45 [facility] Comment on above: Performed By: #### V FPA3 #### [facility] [address] [place] [address] PATIENT TEMPERATURE 37.0 degrees C Normal [facility] Comment on above: Result Comment: NOTE : PATIENT RESULTS ARE NOT CORRECTED FOR TEMPERATURE. Performed By: #### V FPA3 #### [facility] [address] [place] [address] PCO2 42 mmHg Normal 41 - 51 [facility] Comment on above: Performed By: #### V FPA3 #### [facility] [address] [place] [address] pH (Bld) 7.44 [pH] High 7.33 - 7.43 [facility] Comment on above: Performed By: #### V FPA3 #### [facility] [address] [place] [address] Potassium [Moles/Vol] 4.1 mmol/L Normal 3.5 - 5.3 [facility] Comment on above: Performed By: #### V FPA3 #### [facility] [address] [place] [address] SO2 91 % High 45 - 75 [facility] Comment on above: Performed By: #### V FPA3 #### [facility] [address] [place] [address] Sodium [Moles/Vol] 133 mmol/L Low 136 - 145 [facility] Comment on above: Performed By: #### V FPA3 #### [facility] [address] [place] [address] CORONAVIRUS 2019, SCREEN ASY MPTOMATICon 09-17-2021 SARS-CoV-2 (COVID-19) RNA ADRIÁN+probe Ql (Unsp spec) Not detected Normal Not Detected [facility] Comment on above: Result Comment: . This test has received FDA Emergency Use Authorization (EUA) and has been verified by [facility] ([facility]). This test is only authorized for the duration of time that circumstances exist to justify the authorization of the emergency use of in vitro diagnostic tests for the detection of SARS-CoV-2 virus and/or diagnosis of COVID-19 infection under section 564(b)(1) of the Act, 21 U.S.C. 360bbb-3(b)(1), unless the authorization is terminated or revoked sooner. [facility] is certified under CLIA-88 as qualified to perform high complexity testing. Testing is performed in the [facility] located at [address] [place] [address]. SARS-CoV-2/Flu/RSV Multiplex Test: Fact sheet for providers: https://www.fda.gov/media/489889/download Fact sheet for patients: https://www.fda.gov/media/134163/download Performed By: #### C OVSC ####[id number] [place] [address] Lab Specimen Source Nasal, Nasopharyngeal Normal [facility] Comment on above: Performed By: #### C OVSC ####[id number] [place] [address] Coronavirus 2019 RNA by PCR, Screening Asymptomticon 09-17-2021 Coronavirus 2019 RNA by PCR, Screening Asymptomtic Not detected Normal See Below MG-Gastroen terology-Rosendo lwell 6 [facility] Work Phone: Comment on above: SOURCE: Nasal, Nasop haryngealReference Range: Not Detected.This test has received FDA Emergency Use Authorization (EUA) and has been verified by [facility] ([facility]). This test is only authorized for the duration of time that circumstances exist to justify the authorization of the emergency use of in vitro diagnostic tests for the detection of SARS-CoV-2 virus and/or diagnosis of COVID-19 infection under section 564(b)(1) of the Act, 21 U.S.C. 360bbb-3(b)(1), unless the authorization is terminated or revoked sooner. [facility] is certified under CLIA-88 as qualified to perform high complexity testing. Testing is performed in the [facility] located at [address] [place] [address].SARS-CoV-2/Flu/RSV Multiplex Test: Fact sheet for providers: https://www.fda.gov/media/737254/downloadFact sheet for patients: https://www.fda.gov/media/769766/download Covid 19 Resultson 2 SARS-CoV-2 (COVID-19) RNA [...] You may also be contacted by the [facility] to see if any of your [...] or Naproxen (Aleve) can also be used. Bwfb-gye-zvgugbn cough and cold medicines can be used according to the instructions on the package. Some pbtl-prs-vchicaa medicines also contain acetaminophen. Make sure you [...] water are not available, use alcohol-based hand laborer pipelines. Avoid touching your eyes, nose, and mouth [...] 24 mariella (more content not included)... Normal [facility] Daily Progress Note - Psychi [...] pain but found it well-controlled on Dilaudid WATCH LEADER and 5/10 mg oxycodone. Pt is interested [...] he has been working (cardoza at a [employer]), but she looks forward to his arrival [...] her suboxone. Objective: Objective Information: T PRBPSpO2 [id number]/9095% Date/Time09/17 4: 10: 10:: 10:00 Range(35.7C - 36.6C ) (81 - 89 ) (10 - 23 ) (73 - 117 )/ (43 - 90 ) (91% - 96% ) As of 17-Sep-2021 08:00:00, patient is on 3 L/min of oxygen via nasal cannula. Pain reported at 09/17 8:00: 8 = Severe ---- Intake and Output ----- Mn/Dy/Year TimeIntakeOutputNet Sep 17, 2021 6:00 [id number] Sep 16, 2021 2:00 [id number] The Intake and Output Totals for the last 24 hours are: IntakeOutputNet [id number] Mental Status Exam: General: Awake, lying in [...] a Da (more content not included)... Normal [facility] Daily Progress Note-Neurosur jinny 09-17-2021 Daily Progress Note-Neurosurgery Service: Neurosurgery Subjective Data: MORALES LEE is a 46 year old Female who is Hospital Day # 3. Objective Data: Objective Information: T PRBPSpO2 Value35.3873350/4393% Date/Time09/16 18:541/12 18:5409/16 18:5409/16 18:5409/16 18:54 Range(35.7C - 36.4C ) (81 - 91 ) (15 - 24 ) (87 - 118 )/ (43 - 84 ) (91% - 96% ) As of 16-Sep-2021 18:54:00, patient is on 2 L/min of oxygen via nasal cannula. Pain reported at 09/16 16:34: 10 = Severe ---- Intake and Output ----- Mn/Dy/[facility] Sep 16, 2021 2:00 [id number] Physical Exam by System: Neurological: A&Ox3 RUE [...] the note. I personally evaluated the patient [id number] Comments/ Additional Findings I again explained to [...] Updated: 19-Sep-2021 10:16 by Lex Frederick) Normal [facility] HCG,URINEon 09-17-2021 Beta HCG ( test) Ql (U) Negative Normal Negative [facility] Comment on above: Performed By: #### A FPA3 #### [facility] [address] [place] [address] Laboratory - Blood bankon ABO group Nom [...] 09-17-2021 REQUEST-LEUKOREDUCED RED CELLS ORDER RECD Normal [facility] Comment on above: Performed By: #### O PATTERNATOR #### [facility] [address] [place] [address] TYPE + SCREENon 09-17-2021 ABO TYPE O Normal [facility] Comment on above: Performed By: #### T +S #### [facility] [address] [place] [address] RH TYPE Positive Normal [facility] Comment on above: Performed By: #### T +S #### [facility] [address] [place] [address] Urine Teston 09-17 HCG ( test) Ql (U) Negative Negative MG-Gastroen terology-Rosendo lwell 6 [facility] Work Phone: BNPon 09-16-2021 Natriuretic peptide B (Bld) [Mass/Vol] 37 pg/mL Normal 0 - 99 [facility] Comment on above: Result Comment: [...] information. Performed By: #### A FPA3 #### [facility] [address] [place], [place] CBC AND DIFFERENTIALon 09-16 % AUTOMATED IMMATURE GRAN 0.5 % Normal 0.0 - 0.9 [facility] Comment on above: Result Comment: Jaleesa ture Granulocyte Count (IG) includes promyelocytes, myelocytes and metamyelocytes but does not include bands. Percent differential counts (%) should be interpreted in the context of the absolute cell counts (cells/L). Performed By: #### C BCDF ####[id number] [place] [address] Basophils (Bld) [#/Vol] 0.04 10*3/uL Normal 0.00 - 0.10 [facility] Comment on above: Performed By: #### C BCDF ####[id number] [place] [address] Basophils/100 WBC (Bld) 0.5 % Normal 0.0 - 2.0 [facility] Comment on above: Performed By: #### C BCDF ####[id number] [place] [address] Eosinophils (Bld) [#/Vol] 0.26 10*3/uL Normal 0.00 - 0.70 [facility] Comment on above: Performed By: #### C BCDF ####[id number] [place] [address] Eosinophils/100 WBC (Bld) 3.0 % Normal 0.0 - 6.0 [facility] Comment on above: Performed By: #### C BCDF ####[id number] [place] [address] Erythrocyte distribution width (RBC) [Ratio] 13.0 % Normal 11.5 - 14.5 [facility] Comment on above: Performed By: #### C BCDF ####[id number] [place] [address] Hematocrit (Bld) [Volume fraction] 42.7 % Normal 36.0 - 46.0 [facility] Comment on above: Performed By: #### C BCDF ####[id number] [place] [address] Hemoglobin (Bld) [Mass/Vol] 14.1 g/dL Normal 12.0 - 16.0 [facility] Comment on above: Performed By: #### C BCDF ####[id number] [place] [address] Lymphocytes (Bld) [#/Vol] 3.17 10*3/uL Normal 1.20 - 4.80 [facility] Comment on above: Performed By: #### C BCDF ####[id number] [place] [address] Lymphocytes/100 WBC (Bld) 37.2 % Normal 13.0 - 44.0 [facility] Comment on above: Performed By: #### C BCDF ####[id number] [place] [address] MCHC (RBC) [Mass/Vol] 33.0 g/dL Normal 32.0 - 36.0 [facility] Comment on above: Performed By: #### C BCDF ####[id number] [place] [address] MCV (RBC) [Entitic vol] 91 fL Normal 80 - 100 [facility] Comment on above: Performed By: #### C BCDF ####[id number] [place] [address] Monocytes (Bld) [#/Vol] 0.47 10*3/uL Normal 0.10 - 1.00 [facility] Comment on above: Performed By: #### C BCDF ####[id number] [place] [address] Monocytes/100 WBC (Bld) 5.5 % Normal 2.0 - 10.0 [facility] Comment on above: Performed By: #### C BCDF ####[id number] [place] [address] Neutrophils (Bld) [#/Vol] 4.55 10*3/uL Normal 1.20 - 7.70 [facility] Comment on above: Performed By: #### C BCDF ####[id number] [place] [address] Neutrophils/100 WBC (Bld) 53.3 % Normal 40.0 - 80.0 [facility] Comment on above: Performed By: #### C BCDF ####[id number] [place] [address] NUCLEATED RBC 0.0 /100 WBC Normal 0.0-0.0 [facility] Comment on above: Performed By: #### C BCDF ####[id number] [place] [address] Platelets (Bld) [#/Vol] 278 10*3/uL Normal 150 - 450 [facility] Comment on above: Performed By: #### C BCDF ####[id number] [place] [address] RBC 4.70 x10E12/L Normal 4.00 - 5.20 [facility] Comment on above: Performed By: #### C BCDF ####[id number] [place] [address] WBC (Bld) [#/Vol] 8.5 10*3/uL Normal 4.4 - 11.3 [facility] Comment on above: Performed By: #### C BCDF ####[id number] [place] [address] COAGULATION SCREENon 022 aPTT Coag (Bld) [Time] 31 s Normal 26 - 39 [facility] Comment on above: Result Comment: Note new reference range as of 08/04/2021 at 10:00am. Performed By: #### V FPA3 #### [facility] [address] [place] [address] PT Coag (PPP) [Time] 11.6 s Normal 9.8 - 13.4 [facility] Comment on above: Result Comment: Note new reference range as of 08/04/2021 at 10:00am. Performed By: #### V FPA3 #### [facility] [address] [place] [address] PT, INR 1.0 Normal 0.9 - 1.1 [facility] Comment on above: Performed By: #### V FPA3 #### [facility] [address] [place] [address] Clinical Event Note-ADMISSIO N CLARIFICATIONon 09-16-2021 Clinical [...] and monitoring for withdrawal. Provider/Team Contact Info-Pager [id number] Electronic Signatures: Sharmin Guaman (FINANCIAL REPORTING SPECIALIST-CARPENTER/LABOR) (Signed 16-Sep-2021 12:07) Authored: Clinical Event Note Last Updated: 16-Sep-2021 12:07 by Sharmin Guaman (FINANCIAL REPORTING SPECIALIST-CARPENTER/LABOR) Normal [facility] Complete Blood Count + Diffe rentialon 09-16-2021 Basophils/100 WBC (Bld) 0.5 % 0.0 - 2.0 M G-Gastroen terology-Rosendo lwell 6 [facility] Work Phone: Erythrocyte distribution width (RBC) [Ratio] 13.0 % See Below MG-Gastroen terology-Rosendo lwell 6 [facility] Work Phone: Comment on above: Reference Range: 11. 5 - 14.5 Hematocrit (Bld) [Volume fraction] 42.7 % See Below MG-Gastroen terology-Rosendo lwell 6 [facility] Work Phone: Comment on above: Reference Range: 36. 0 - 46.0 Hemoglobin (Bld) [Mass/Vol] 14.1 g/dL See Below MG-Gastroen terology-[place]endo lwell 6 I Work Phone: Comment on above: Reference Range: 12. 0 - 16.0 Lymphocytes/100 WBC (Bld) 37.2 % See Below MG-Gastroen terology-[place]endo lwell 6 [facility] Work Phone: Comment on above: Reference Range: 13. 0 - 44.0 MCHC (RBC) [Mass/Vol] 33.0 g/dL See Below MG- Gastroen terology-[place]endo lwell 6 [facility] Work Phone: Comment on above: Reference Range: 32. 0 - 36.0 MCV (RBC) [Entitic vol] 91 fL 80 - 100 M G-Gastroen terology-[place]endo lwell 6 [facility] Work Phone: Monocytes/100 WBC (Bld) 5.5 [...] 0.0 {/100_WBC} 0.0-0.0 MG-Gastroen terology-Rosendo ell 6 [facility] Work Phone: Consult-Painon 09-16-2021 Consult-Pain Service: [...] the note. I personally evaluated the patient [id number] Electronic Signatures: Chidi [place] (Fellow)) (Signed 16-Sep-2021 [...] From Consult - Psychiatry 15-Sep-2021 20:42 Normal [facility] Consult-Perioperative Medici neon 09-16-2021 Consult-Perioperative Medicine [...] penicillin: Unknown Objective: Objective Information: T PRBPSpO2 Value36.51515673/8491% Date/Time09/16 11:131/12 12:4909/16 12:4909/16 12:4909/16 12:49 Range(36.3C [...] 100 mg (more content not included)... Normal [facility] Cult, Urineon 09-16-2021 Bacteria identified Cx Nom (U) Abnormal MG-Gastroen terology-[place]endo lwell 6 [facility] Work Phone: Daily Progress Note-Neurosur jinny 09-16-2021 Daily Progress Note-Neurosurgery Service: Neurosurgery Subjective Data: MORALES LEE is a 46 year old Female who is Hospital Day # 3. Objective Data: Objective Information: T PRBPSpO2 Value36.3943725/6693% Date/Time09/16 1: 4: 4: 4: 4:00 Range(36.3C [...] (suboxone) in AM COWS psych recs SCD's, [facility] Attestation: Note Completion: I am a: Resident/Fellow [...] the note. I personally evaluated the patient [id number] Comments/ Additional Findings TO OR this Tuesday if medically optimized for T12 - Pelvis fusion and Instrumentation. Pain consult for management regrading Suboxone and pain control in the perioperative period. US LE MRI of the lumbar spine., Lex Frederick MD, [facility], FAANS Director - Minimally Invasive Spine Surgery [facility] Box Sorter of Neurological Surgery [facility] [employer] [place], [place] Electronic Signatures: Fidel Maciel (Resident)) (Signed 16-Sep-2021 04:33) Authored: Service, Subjective Data, Objective Data, Assessment and Plan, Note Completion Lex Frederick) (Signed 16-Sep-2021 10:22) Authored: Note Completion Co-Signer: Service, Subjective Data, Objective Data, Assessment and Plan, Note Completion Last Updated: 16-Sep-2021 10:22 by Lex Frederick) Normal [facility] EMR ADDONon 09-16-2021 ADDON CONFIRMATION REQUEST REC'D Normal [facility] Comment on above: Performed By: [...] above: . <100 pg/mL - Heart failure [id number] pg/mL - Intermediate probability of acute heart. [...] [Mass/Vol] 3.5 g/dL Normal 3.4 - 5.0 [facility] Comment on above: Performed By: #### R ENAL #### [facility] [address] [place] [address] Anion gap [Moles/Vol] 14 mmol/L Normal 10 - 20 [facility] Comment on above: Performed By: #### R ENAL #### [place] [address] [place] [address] Calcium [Mass/Vol] 8.9 mg/dL Normal 8.6 - 10.6 [facility] Comment on above: Performed By: #### R ENAL #### [facility] [address] [place] [address] Chloride [Moles/Vol] 101 mmol/L Normal 98 - 107 [facility] Comment on above: Performed By: #### R ENAL #### [facility] [address] [place] [address] Creatinine [Mass/Vol] 0.63 mg/dL Normal 0.50 - 1.05 [facility] Comment on above: Performed By: #### R ENAL #### [facility] [address] [place] [address] eGFR FEMALE >90 Normal >90 [facility] Comment on above: Result Comment: CALC ULATIONS OF ESTIMATED GFR ARE PERFORMED USING THE 2020 CKD-EPI STUDY REFIT EQUATION WITHOUT THE RACE VARIABLE FOR THE IDMS-TRACEABLE CREATININE METHODS. https://jasn.asnjournals.org/content//ASN.349 8943426 Performed By: #### R ENAL #### [facility] [address] [place] [address] Glucose [Mass/Vol] 88 mg/dL Normal 74 - 99 [facility] Comment on above: Performed By: #### R ENAL #### [facility] [address] [place] [address] HCO3 (Bld) [Moles/Vol] 29 mmol/L Normal 21 - 32 [facility] Comment on above: Performed By: #### R ENAL #### [facility] [address] [place] [address] Phosphate [Mass/Vol] 3.4 mg/dL Normal 2.5 - 4.9 [facility] Comment on above: Result Comment: The performance characteristics of phosphorus testing in heparinized plasma have been validated by the individual laboratory site where testing is performed. Testing on heparinized plasma is not approved by the FDA; however, such approval is not necessary. Performed By: #### R ENAL #### [facility] [address] [place] [address] Potassium [Moles/Vol] 3.7 mmol/L Normal 3.5 - 5.3 [facility] Comment on above: Performed By: #### R ENAL #### [facility] [address] [place] [address] Sodium [Moles/Vol] 140 mmol/L Normal 136 - 145 [facility] Comment on above: Performed By: #### R ENAL #### [facility] [address] [place] [address] Urea nitrogen [Mass/Vol] 10 mg/dL Normal 6 - 23 [facility] Comment on above: Performed By: #### R ENAL #### [facility] [address] [place] [address] Renal Function Panelon 09-16 Albumin BCP dye [...] - 5.3 MG- Gastroen terology-[place] [facility]well 6 [facility] Work Phone: Sodium [Moles/Vol] 140 mmol/L 136 - 145 MG-Gas troen terology-[place]endo [place]well 6 I Work Phone: Urea nitrogen [Mass/Vol] 10 mg/dL 6 - 23 MG-Gastroen terology-[place] [facility] 6 I Work Phone: Renal Function Panel >90 >90 MG-G astroen terology-Rosendo lwell 6 [facility] Work Phone: Comment on above: CALCULATIONS OF IVY MATED GFR ARE PERFORMED USING THE 2020 CKD-EPI STUDY REFIT EQUATION WITHOUT THE RACE VARIABLE FOR THE IDMS-TRACEABLE CREATININE METHODS.https://jasn.asnjournals.org/content/ /ASN.0620539195 [facility] 09-16-2021 BACTERIA 2+ /HPF Abnormal [facility] Comment on above: Performed By: #### U AMIC ####[id number] [place] [address] Mucus Ql (Urine sed) 1+ /LPF Normal [facility] Comment on above: Performed By: #### U AMIC ####[id number] [place] [address] RBC 3 /HPF Normal 0-5 [facility] Comment on above: Performed By: #### U AMIC ####[id number] [place] [address] SQUAMOUS EPITH. CELLS 2 /HPF Normal [facility] Comment on above: Performed By: #### U AMIC ####[id number] [place] [address] WBC 115 /HPF Abnormal 0-5 [facility] Comment on above: Performed By: #### U AMIC ####[id number] [place] [address] URINALYSISon 09-16-2021 Appearance (U) HAZY Normal CLEAR [facility] Comment on above: Performed By: #### U A ####[id number] [place] [address] Bilirubin Ql (U) Negative Normal NEGATIVE [facility] Comment on above: Performed By: #### U A ####[id number] [place] [address] Color (U) YELLOW Normal STRAW,YELL OW [facility] Comment on above: Performed By: #### U A ####[id number] [place] [address] Glucose Ql (U) Negative Normal NEGATIVE [facility] Comment on above: Performed By: #### U A ####[id number] [place] [address] Hemoglobin Ql (U) Negative Normal NEGATIVE [facility] Comment on above: Performed By: #### U A ####[id number] [place] [address] Ketones Ql (U) Negative Normal NEGATIVE [facility] Comment on above: Performed By: #### U A ####[id number] [place] [address] Leukocyte esterase Test strip Ql (U) LARGE (3+) Abnormal NEGATIVE [facility] Comment on above: Performed By: #### U A ####[id number] [place] [address] Nitrite Ql (U) Positive Abnormal NEGATIVE [facility] Comment on above: Performed By: #### U A ####[id number] [place] [address] pH (U) 6.0 [pH] Normal 5.0 - 8.0 [facility] Comment on above: Performed By: #### U A ####[id number] [place] [address] Protein Ql (U) Negative Normal NEGATIVE [facility] Comment on above: Performed By: #### U A ####[id number] [place] [address] Specific gravity (U) [Rel density] 1.011 Normal 1.005 - 1.035 [facility] Comment on above: Performed By: #### U A ####[id number] [place] [address] Urobilinogen (U) [Mass/Vol] 2.0 mg/dL High 0.0 - 1.9 [facility] Comment on above: Result Comment: [...] positive urobilinogen. Performed By: #### U A ####[id number] [place] [address] URINE CULTURE,BACTERIALon URINE CULTURE,BACTERIAL PATIENT: Fay LEE LOCATION: [facility]#: [id number] : 71 AGE: SEX: F ORDERED BY: [...] DEPENDENT NS=NONSUSCEPTIBLE X=REPORTED IN ERROR ___ Normal [facility] Comment on above: Performed By: #### A FPA3 #### [facility] [address] [place] [address] Urinalysison 09-16-2021 Color (U) YELLOW See Below MG-Gastroen Mutations [employer] 6 [facility] Work Phone: Comment on above: Reference Range: STR AW,YELLOW Glucose Ql (U) Negative NEGATIVE MG-Gastroe n terology-[place]endo lwell 6 [facility] Work Phone: Ketones Ql (U) Negative NEGATIVE MG-Gastroe n terology-[facility] 6 [facility] Work Phone: Leukocyte esterase Test strip Ql (U) LARGE (3+) Abnormal NEGATIVE [facility]-Gastroen terology-[facility] 6 I Work Phone: pH (U) 6.0 [pH] 5.0 - 8.0 [facility]astroen terology-[place] 6 I Work Phone: Protein (U) [Mass/Vol] Negative NEGATIVE [facility] -[facility]astroen terology-[facility] 6 I Work Phone: RBC (U) [#/Vol] Negative NEGATIVE MG-Gastro en terology-[facility] 6 [facility] Work Phone: Specific gravity (U) [Rel density] 1.011 1 See Below [facility]-Gastroen terology-[facility] 6 [facility] Work Phone: Comment on above: Reference Range: 1.0 05 - 1.035 Urinalysis Positive Abnormal NEGATIVE [facility]astroen terology-[facility] 6 [facility] Work Phone: Urinalysis 2.0 mg/dL above high threshold 0.0 - 1.9 [facility]astroen [facility]ology[facility] 6 [facility] Work Phone: Comment on above: Due [...] Urinalysis Negative NEGATIVE [facility]astroen [facility]ology-[facility] 6 [facility] Work Phone: Urinalysis HAZY CLEAR MG-Gastroen terology-[facility] 6 [facility] Work Phone: Urinalysis, Microscopicon Urinalysis, Microscopic 1+ M G-Gastroen terology-[facility] 6 I Work Phone: Urinalysis, Microscopic [...] 09-16-2021 VAS LAB Venous Duplex Ultrasound DVT [place] [address] and Vascular Lab Report Lower Venous Duplex Ultrasound Patient Name: MORALES LEE Reading Physician: [id number] Arjun Romero MD, RPVI Study Date: 09/16/2021 Referring Physician: [id number] HARRISON RAGSDALE MRN/PID: [id number] PCP: Accession/Order#: [id number] CC Report to: Date of : 1975 Technologist: Isai Burleson RVT Gender: F Technologist 2: Admission Status: Outpatient [facility] Diagnosis/ICD: M79.89-Left leg swelling; M79.89-Right leg swelling Procedure/CPT: 33960 Peripheral venous duplex scan for DVT complete-66947 CONCLUSIONS: Right Lower Venous: No evidence of [...] Spontaneous/Phasic Peroneal Yes None PTV Yes None [id number] Arjun Romero MD, YOLIE Final Normal [facility] VAS LAB Venous Duplex Ultra sound for DVTon 09-16-2021 [facility] Venous Duplex Ultrasound for DVT MG-Gastroen terology-[place] 6 I Work Phone: No Panel Informationon 09-15 [email or web address] ?RetrieveTestByDateTime?P datkpjVR=[id number]&Date=1 09-05-2021&Time=19%3a14%3a 23%3a00&TestType=ECG&Site =1&OutputType=PDF&Ext=PDF MG-Gastroen terology-[place] [place] 6 [...] I Work Phone: [email or web address] ?RetrieveTestByDateTime?P tscfffJN=[id number]&Date=1 09-05-2021&Time=19%3a14%3a 42%3a00&TestType=ECG&Site =1&OutputType=PDF&Ext=PDF MG-Gastroen terology-[place] 6 [...] 6 [facility] Work Phone: 86 1 [facility]-Gastroen terology-[place] [facility] 6 I Work Phone: Order Reconciliationon 09-15 Order Reconciliation Page 1 Admission Reconciliation Document Reconciliation Type: Admission requested on behalf of Concetta Shi (Advanced Practice Nurse) done by Concetta Shi ([facility]) Admission - Reconciliation: 15-Sep-2021 19:03 by: Fidel [...] to Incomplete: 30-Sep-2021 14:18 by: Concetta Shi ([facility]) Admission - Reconciliation: 30-Sep-2021 14:20 by: Concetta Shi ([facility]) Home MedicationsEnteredLast Dose TakenReconciled with current Order Reconciliation Comment/ Additional Information acetaminophen 325 mg oral tablet 2 tab(s) orally every 6 hours, as needed while having post operative [id number]-Lbq-3847 Reviewed and Held Ambien CR 12.5 mg oral tablet, extended release 1 tab(s) oral qxo30-Vdv-4340 Zolpidem Tablet (AMBIEN)DOSE = 10 mg Oral At BedtimeNotes from Pharmacy: Substitution For Zolpidem (Ambien CR) 12.5 mg at Bedtime Ambien CR 12.5 mg oral tablet, extended release continued as the inpatient order Zolpidem Ankle Foot Orthosis for foot iexj95-Csf-4517 Reviewed and Held betamethasone topical valerate 0.1% topical cream 1 milena topical prn 15-Sep-2021 EnteredInError Reviewed and Held Bilateral Prafos - orthotics to fit, - ICD 10: R26.0, M21.37, M62.81 30-Sep-2021 Reviewed and Held calcium-vitamin D 500 mg-200 intl units (5 mcg) oral tablet 1 tab(s) orally 4 times a kkf98-Onr-7939 Calcium 500 mg - Vitamin D 200 [...] times a day, as needed for muscle icipfa43-Ipi-7720 Cyclobenzaprine Tablet (FLEXERIL)DOSE = 10 mg Oral [...] topical 1% topical gel 1 milena topical fyp69-Jqn-6201 Reviewed and Held DULoxetine 30 mg oral [...] 2 tab(s) orally once a day, As Fdyyop78-Jar-8790 Reviewed and Held gabapentin 800 mg oral tablet 1 tab(s) oral 3 times a iav57-Tgo-8525 Gabapentin Capsule (NEURONTIN)DOSE = 800 mg Oral 3 Times a Day gabapentin 800 mg oral tablet continued as the inpatient order Gabapentin LEFT AFO -Orthotics to fit, ICD 10: M21.0022-Qhb-5644 Reviewed and Held lidocaine 5% topical film Apply topically to affected area once a day, As Needed near surgical incision for incisional pain 15-Sep-2021 EnteredInError Reviewed and Held lisinopril 20 mg oral tablet 1 tab(s) oral once a cht38-Noe-1040 Lisinopril Tablet (PRINIVIL, ZESTRIL)DOSE = 20 mg [...] patch TransDermal Every 24 HoursNotes from Pharmacy: [facility] nicotine 14 mg/24 hr transdermal film, [...] - available over the counter at any zqlejfxx15-Pvc-2312 Reviewed and Held RIGHT AFO - Orthotics to fit, - M21.5684-Evl-6541 Reviewed and Held sennosides-docusate 8.6 mg-50 mg oral tablet 2 tab(s) orally 2 times a day , -Take while using oxycodone for post operative pain to prevent contipation 15-Sep-19 (more content not included)... Normal [facility] Radiologyon 09-15-2021 XR Chest Single view Normal MG-G astroen terology-[facility] moura 6 [facility] Work Phone: TH CHEST 1 VIEWon 09-15-2021 TH CHEST 1 VIEW Patient Name: MORALES LEE STUDY: CHEST 1 VIEW; 09/15/2021 7:21 pm INDICATION: pre-op . COMPARISON: 12/26/2020. ACCESSION NUMBER(S): [id number] ORDERING CLINICIAN: TOSHA BORJA FINDINGS: CARDIOMEDIASTINAL SILHOUETTE: [...] Electronically signed by: Esther PEDERSON MD Normal [facility] Established Visit (Neurosurg ariana)on 09-08-2021 [...] in the Neurosurgery Spine Clinic at the [facility]. She is a very pleasant 46-year-old female, [...] obvious instability (more content not included)... Normal [facility] No Panel Informationon 09-08 Normal MG-Neurosur samsonPhoto RankrMiguel Work Phone: Please click on the link [...] and T6-L4 Fusion. COMPARISON: None. ACCESSION NUMBER(S): [id number] ORDERING CLINICIAN: LEX FREDERICK FINDINGS: Fused PA [...] Electronically signed by: JOSEPH SALAZAR MD Normal [facility] Tobacco Screening.on Fall risk assessment b) One or more fall s in the last year MG-Nuha daviesPhoto RankrMiguel Work Phone: Tobacco use status CPHS a) Yes M G-YupiCalljudy samsonCatchMe!Miguel Work Phone: Established Visit (Neurosurg ariana)on 05-05-2021 Established Visit (Neurosurgery) History of Present Illness I just had the pleasure of seeing Mrs. Jesus villarreal in the Neurosurgery Spine Clinic at the [facility]. She is a very pleasant 45 -year-old female, who recently underwent a L1 Vertbrectomy and T6-L4 Fusion with me on 12/26/2020 and is status post 4 Months out from her surgery. Today's visit was a virtual visit with the patient at her home and myself at [facility]. She mentions that overall she is doing [...] in Ms. LEE care. Lex Frederick MD, [facility], FAANS Director - Minimally Invasive Spine Surgery [facility] Box Sorter of Neurological Surgery [facility] [employer] [place], [place] Some of this note was completed using [employer] voice recognition technology and sometimes the software [...] May 05 2021 9:18PM EST (Author) Normal [facility] Established Visit (Neurosurg ariana)on 01-08-2021 Established Visit [...] in the Neurosurgery Spine Clinic at the [facility]. She is a very pleasant 45 -year-old [...] the further treatment plan. Lex Frederick MD, [facility], FAANS Director - Minimally Invasive Spine Surgery [facility] Wire Communications Engineer of Neurological Surgery [facility] [employer] [place], [place] Some of this note was completed using [employer] voice recognition technology and sometimes the software [...] Unspecified cord compression. COMPARISON: None. ACCESSION NUMBER(S): [id number] ORDERING CLINICIAN: LEX FREDERICK TECHNIQUE: Multiplanar and [...] spine. Electronically signed by: LENNY HAGER MD [facility] NR MRI L-SPINE WOon 12-12-19 21 NR MRI L-SPINE WO Patient Name: MORALES LEE STUDY: MRI L-SPINE WO; ; 12/11/2020 1:38 pm INDICATION: Lumbar Pain Scoliosis, unspecified Low back pain. COMPARISON: CT lumbar spine from 10/07/2020. MRI lumbar spine from 03/11/2016. ACCESSION NUMBER(S): [id number] ORDERING CLINICIAN: LEX FREDERICK TECHNIQUE: MRI of [...] multiple levels. This study was interpreted at [facility]. Electronically signed by: WESLEY CARBAJAL MD [facility] Initial Visit (Neurosurgery) on 10-28-2020 Initial Visit [...] Status:Resulted - Preliminary,Retrospective By Protocol Authorization; Done: [id number] 12:00AM Reason: Unspecified for Xray Spine, entire thoracic/lumbar, include skull, cervical and sacral spine when performed, 2 or 3 view Radiologist to Determine Optimal Study : Y What are the patient's signs and symptoms? : Lumbar Pain SocHx: Current smoker Tobacco Use Screening; Status:Complete; Done: [id number] Patient Discussion/Summary It was a pleasure to see Ms. LEE at [facility]. Ms. 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 She now has been having severe symptoms [...] another spine surgeon at the [facility] who recommended urgent surgery for her [...] even walk (more content not included)... Normal [employer] ([place]) CoNon 07-10-2019 CNPN Telephone (SPNMMN) ----- MORALES LEE ([id number]) 1975 F Date Time Provider Department 07/10/19 DIXIE TEE [facility] During your visit today, we recorded [...] Quan's office regarding setting up surgery. Jacquie cMneil RN Allergies As of Date: 07/10/2019 Noted [...] Order(s):CONSULT TO ORTHOPAEDIC SURGERY [[id number]] Order #: [id number]: 1 Prescriptions as of 07/10/2019 Sig: LISINOPRIL [...] Status:Closed by DIXIE TEE MD on 07/10/19 [facility] CNOVon 07-09-2019 CNOV Office Visit (SPNSMN ) ----- MORALES LEE ([id number]) 1975 F Date Time Provider Department 07/09/19 9:30 AM STEVENSON QUAN SPNSMN During your visit today, we recorded the following information about you: Pulse Respiration Blood pressure Weight 89/minute 18/minute 124/74 95.8 kg Height 1.499 m Stevenson Quan MD 07/09/2019 2:56 PM Signed SPINE SURGERY OUTPATIENT CONSULT SERVICE DATE: 07/09/2019 PCP: No primary care provider on file. REFERRING PROVIDER: Dixie Tee MD [address] [facility] [address] Consult requested for an opinion regarding the [...] file Gets together: Not on file Attends scientologist service: Not on file Active member of [...] with the patient or the patient?s personal fuels sales representative. The patient has elected to schedule surgery at this time or intends to call the office with a surgical date. Shared decision making occurred while obtaining informed consent. 1. Imaging: Thoracic CT Without Contrast 2. Encouraged to call the office with any questions or concerns 3. 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] Other Visit Diagnosis:Spinal stenosis of thoracic region [M48.04] Order(s):CT THORACIC SPINE WO IVCON [4561225] Order #: [id number] FUTURE Prescriptions as of 07/09/2019 Sig: LISINOPRIL [...] Status:Closed by STEVENSON QUAN MD on 07/09/19 [facility] OBSOLETEon 07-09-2019 OBSOLETE Procedure (EMGMN) ----- MORALES LEE ([id number]) 1975 F Date Time Provider Department 07/09/19 7:45 AM EMG 1 NEUR MAIN EMGMN During your visit today, we recorded the following information about you: Referring Provider: DIXIE TEE [[id number]] Allergies As of Date: 07/09/2019 Noted Allergy [...] upper limb [G56.21] Order(s):EMG(NEURO/NI) [[id number]] Order #: [id number]: 1 Prescriptions as of 07/09/2019 Sig: LISINOPRIL [...] by JHON EASON MD on 07/09/19 Normal [facility] PROGRESSon 07-09-2019 PROGRESS HNO ID: [id number] Author: Stevenson Quan Service: ? Author Type: Physician Type: Progress Notes Filed: 07/09/2019 2:56 PM Note Text: SPINE SURGERY OUTPATIENT CONSULT SERVICE DATE: 07/09/2019 PCP: No primary care provider on file. REFERRING PROVIDER: Dixie Tee MD [address] [facility] [address] Consult requested for an opinion regarding the [...] file Gets together: Not on file Attends scientologist service: Not on file Active member of [...] with the patient or the patient?s personal fuels sales representative. The patient has elected to [...] 09, 2019 TIME: 10:24 AM PAGER: Normal [facility] OT-XR DEXA BONE DENSITY IMPO RTon 07-06-2019 OT-XR DEXA BONE DENSITY IMPORT Images were obtained outside of [facility] [id number] Normal [facility] CASE MGT INIT [facility] 2018 CASE MGT INIT [facility] HNO ID: [id number] Author: Kimberly (Rn) MERA Dunaway Service: ? Author Type: Registered Nurse Type: Care Mgt Initial Assessment Filed: 06/20/2019 12:25 PM Note Text: CARE MANAGEMENT: ASSESSMENT AND DISCHARGE PLAN SERVICE DATE: 06/20/2019 SERVICE TIME: 12:21 PM PRIMARY CARE PHYSICIAN: No primary care provider on file. 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 No Advance Directive: Current Advance Directive: None Major Donor Coordinator Attempted to Assist with AD Completion: Yes [...] Lee Address: [address] [place] [address] [facility] Mobile Relation: Spouse Supportive: Yes Other [...] 0 I feel financially burdened by my hez-hf-jmjswt expenses for my prescription medication: Disagree completely [...] 20, 2019 TIME: 12:21 PM PAGER/CONTACT #: [phone] Normal [facility] CBCon 06-20-2019 Erythrocyte distribution width (RBC) [Ratio] 12.6 % Normal 11.5-15.0 [facility] Comment on above: Performed By: #### C BC #### [place] [id number] Hematocrit (Bld) [Volume fraction] 48.7 % High 36.0-46.0 [facility] Comment on above: Performed By: #### C BC #### [place] [id number] Hemoglobin (Bld) [Mass/Vol] 16.8 g/dL High 11.5-15.5 [facility] Comment on above: Performed By: #### C BC #### [place] [id number] MCH (RBC) [Entitic mass] 31.1 pG Normal 26.0-34.0 [facility] Comment on above: Performed By: #### C BC #### [place] [id number] MCHC (RBC) [Mass/Vol] 34.5 g/dL Normal 30.5-36.0 [facility] Comment on above: Performed By: #### C BC #### [place] [id number] MCV (RBC) [Entitic vol] 90.0 fL Normal 80.0-100.0 [facility] Comment on above: Performed By: #### C BC #### [place] [id number] Platelet mean volume (Bld) [Entitic vol] 10.6 fL Normal 9.0-12.7 [facility] Comment on above: Performed By: #### C BC #### [place] [id number] [place] [address] Platelets (Bld) [#/Vol] 334 10*3/uL Normal 150-400 [facility] Comment on above: Performed By: #### C BC #### [place] [address] RBC (Bld) [#/Vol] 5.41 10*6/uL High 3.90-5.20 [facility] Comment on above: Performed By: #### C BC #### [place] [address] WBC (Bld) [#/Vol] 10.85 10*3/uL Normal 3.70-11.00 [facility] Comment on above: Performed By: #### C BC #### [place] [address] CONSULTon 06-20-2019 CONSULT HNO ID: [id number] Author: Evelyn Resendez Service: Pain Management Author [...] controlled substances - including suboxone - from [facility]. Of note, pt has followed once [...] me to leave. She is now leaving [place]. 3. Will sign off _ SUBJECTIVE CHIEF [...] activity was identified. 06/20/2019 by Evelyn Resendez APRN.CARPENTER/LABOR PAST MEDICAL HISTORY Diagnosis Date - Degenerative [...] file Gets together: Not on file Attends scientologist service: Not on file Active member of [...] 20, 2019 TIME: 8:24 AM PAGER/CONTACT #: [phone] (M-F 8-5) [facility] CT BRAIN WO IVCONon 06-20-[address] BRAIN WO IVCON * * *Final Report* * * DATE OF EXAM: Jun 20 2019 1:31AM [facility] 0504 - CT BRAIN WO [...] No large cortical infarct or acute hemorrhage. Planer Setter: ADITYA Transcribe Date/Time: Jun 20 2019 1:33A Dictated by : DAVONTE MOY MD This examination was interpreted and the report reviewed and electronically signed by: DAVONTE MOY MD on Jun 20 2019 1:35AM EST [id number] [facility] ECG COMPLETEon 06-20-2019 ECG COMPLETE NAME : MORALES LEE PID : [id number] : 1975 Gender : Female Race : ORD : [id number] Procedure Date : Jun 19 2019 23:57:03 Edit Date : Jun 20 2019 07:51:18 Diagnosis:Sinus rhythm Normal ECG no STEMI 1200a Confirmed by MD ARREDONDO LISA ([id number]), content editor FOREST WALTON ([id number]) on 06/20/2019 7:51:18 AM Ventricular Rate : 85 BPM Atrial Rate : 85 BPM P-R Interval : 137 ms QRS Duration : 91 ms Q-T Interval : 365 ms QTC Calculation(Bazett) : 434 ms P [place] : 51 degrees R [place] : -13 degrees T [place] : 61 degrees Test Reason : Chest Pain Location : 302 : ED AVED-1 Overread By : MD ARREDONDO LISA Edited By : FOREST WALTON Referred By : , Acquired by : [id number], [facility] ED NOTEon 06-20-2019 ED NOTE HNO ID: [id number] Author: Yuki Mckenzie) MERA Cruz Service: ? Author Type: Registered Nurse Type: ED Notes Filed: 06/20/2019 1:40 AM Note Text: Patient got CT, it is still pending and Jessie MESA said ok to transfer to [place] with out results pending. Patient agreeing and understanding of transfer. updated on POC and transfer via telephone. DM here to take patient at this time. Pain is not improved at time of transfer. [facility] ED NOTE HNO ID: [id number] Author: Yuki Cruz RN Service: ? Author Type: Registered Nurse Type: ED Notes Filed: 06/20/2019 1:15 AM Note Text: Clean catch urine specimen obtained and sent. [facility] ED NOTE HNO ID: [id number] Author: Yuki Cruz RN Service: ? Author [...] time with getting transferred to another facility. [facility] ED NOTE HNO ID: [id number] Author: Yuki Mckenzie) MERA Cruz Service: ? Author Type: Registered Nurse Type: ED Notes Filed: 06/20/2019 3:28 AM Note Text: Patient stated Valium did not help. She continues to be in pain and upset. She wanted to speak with someone in charge and update on POC. Normal [facility] HISTORY PHYSICALon 9 HISTORY PHYSICAL HNO ID: [id number] Author: Talita Wesley RN Service: General Internal [...] tightness that is constant. Notices a decreased senior commercial loan officer strength and weakness in left hand. [...] pressure, palpitations, leg swelling. Denies hx of MS. GI: Denies nausea, vomiting, diarrhea, abdominal pain, [...] rotation 40/80% Decreased left C5-C7 sensation. Left senior commercial loan officer strength 2/5. Right senior commercial loan officer strength 5/5. UE DTR intact and [...] tightness into left arm, weak left hand senior commercial loan officer strength, and worsening severity of numbness/tingling [...] Needs confirmed with patient pharmacy. Patient uses [facility] in [place], [place]. Patient provided #[phone]. Will call in am to confirm dose. Nicotine Abuse Assessment AND Plan: Smokes 1 1/2 PPD for 20 years. Smoking cessation advised. Nicotine patch ordered. Medication and Non-Pharmacologic VTE Prophylaxis/Anticoagulant s VTE Prophylaxis: VTE prophylaxis appropriate SIGNATURE: Talita Wesley APRN.CNP PATIENT NAME: Morales Lee DATE: June 20, 2019 TIME: 2:58 AM PAGER/CONTACT #: U # [phone] [facility] NURSING PROGon 06-20-2019 NURSING PROG HNO ID: [id number] Author: Austyn (Rn) MERA Berumen Service: Nursing Author Type: Registered Nurse Type: Nursing Progress Note Filed: 06/20/2019 3:10 PM Note Text: Nursing Progress Note Patient Name: Morales Lee Patient Location: [id number] -02 Daily Note:06/20/2019 -pt is upset regarding [...] note was completed by: AUSTYN BERUMEN RN [facility] NURSING PROG HNO ID: [id number] Author: Austyn Mckenzie) MERA Berumen Service: Nursing Author Type: Registered Nurse Type: Nursing Progress Note Filed: 06/20/2019 8:10 AM Note Text: Nursing Progress Note Patient Name: Morales Lee Patient Location: [id number] -02 Daily Note:06/20/2019 -assumed care of patient, pt is requesting her suboxone. We have to call to verify dosage. -MERA Acosta called pharmacy provided by night [employer]AUR[employer] K[employer]EN AND SERVICE MANAGER and the pharmacy does not open until 9am. We will call back to verify dose later. -Dr. Kwon called to speak with this RN, he will be in to see the patient later today. This note was completed by: AUSTYN BERUMEN RN [facility] NURSING PROG HNO ID: [id number] Author: Guadalupe Herbert RN Service: ? Author Type: Registered Nurse Type: Nursing Progress Note Filed: 06/20/2019 4:33 AM Note Text: Nursing Progress Note Patient Name: Morales Lee Patient Location: [id number] -02 Daily Note:AANDO x 3. C/O left [...] note was completed by: Guadalupe Herbert RN [facility] PROGRESSon 06-20-2019 PROGRESS HNO ID: [id number] Author: Sedrick Martin Service: General Internal Medicine [...] rales. Cor:RSR, no murmurs. 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 DATA: Diagnostic tests [...] VTE Prophylaxis/Anticoagulant s 06/20/19399 pneumatic compression stockings (il,hi) 06/20/19399 activity - mobilize patient ([place], [place]) VTE Prophylaxis: appropriate SIGNATURE: Sedrick Martin MD PATIENT NAME: Morales Lee DATE: June 20, 2019 TIME: 10:41 AM PAGER: [facility] PROGRESS HNO ID: [id number] Author: Sedrick Martin Service: General Internal Medicine Author Type: Physician Type: Progress Notes Filed: 06/20/2019 8:25 AM Note Text: As per Pain Management Consult still pending, I was notified by Pain Management to resume the pt.' s home Suboxone dosage until pt. Seen later today. Normal [facility] Troponin Ton 06-20-2019 Troponin T.cardiac [Mass/Vol] ug/L Normal 0.000-0.[address] [place] [address] Comment on above: Performed By: #### T NT #### [place] [address] Troponin T.cardiac [Mass/Vol] ug/L Normal 0.000-0.[address] [place] [address] Comment on above: Performed By: #### T NT #### [place] [id number] Basic Metabolic Panlon 06-19 Anion gap [Moles/Vol] 14 mmol/L Normal 9-18 [facility] Calcium [Mass/Vol] 10.3 mg/dL High 8.5-10.2 [facility] Chloride [Moles/Vol] 96 mmol/L Low 97-105 [facility] CO2 [Moles/Vol] 29 mmol/L Normal 22-30 [facility] Creatinine [Mass/Vol] 0.59 mg/dL Normal 0.58-0.96 [facility] eGFR- Amer. >60 Normal [facility] [facility] GFR/1.73 sq M predicted among non-blacks MDRD (S/P/Bld) [Vol rate/Area] mL/min/{1.73_m2} Normal [facility] Comment on above: Result Comment: eGFR [...] GFR. Glucose [Mass/Vol] 114 mg/dL High 74-99 [facility] Comment on above: Result Comment: The [place] Diabetes Association (ADA) provides guidance for cutoff [...] Standards of Medical Care in Diabetes 2016, [place] Diabetes Association. Diabetes Care. 2016.39(Suppl 1). Potassium [Moles/Vol] 3.7 mmol/L Normal 3.7-5.1 [facility] Sodium [Moles/Vol] 139 mmol/L Normal 136-144 [facility] Urea nitrogen [Mass/Vol] 7 mg/dL Normal 7-21 [facility] CBC and Differentialon 06-19 Abs Baso 0.09 k/uL Normal <0.11 [facility] Abs Overton 0.61 k/uL Normal <0.87 [facility] Abs Neut 7.56 k/uL High 1.45-7.50 [facility] Absolute nRBC <0.01 Normal <0.01 [facility] Basophils/100 WBC (Bld) 0.7 % Normal [facility] DTYPE Auto Diff Normal [facility] Eosinophils (Bld) [#/Vol] 0.25 10*3/uL Normal <0.46 [facility] Eosinophils/100 WBC (Bld) 1.9 % Normal [facility] Erythrocyte distribution width (RBC) [Ratio] 12.0 % Normal 11.5-15.0 [facility] Hematocrit (Bld) [Volume fraction] 52.6 % High 36.0-46.0 [facility] Hemoglobin (Bld) [Mass/Vol] 18.0 g/dL High 11.5-15.5 [facility] Lymphocytes (Bld) [#/Vol] 4.67 10*3/uL High 1.00-4.00 [facility] Lymphocytes/100 WBC (Bld) 35.4 % Normal [facility] MCH (RBC) [Entitic mass] 30.0 pG Normal 26.0-34.0 [facility] MCHC (RBC) [Mass/Vol] 34.2 g/dL Normal 30.5-36.0 [facility] MCV (RBC) [Entitic vol] 87.7 fL Normal 80.0-100.0 [facility] Monocytes/100 WBC (Bld) 4.6 % Normal [facility] Neutrophils/100 WBC (Bld) 57.4 % Normal [facility] NRBCs 0.0 /100 WBC Normal 0 [facility] Platelet mean volume (Bld) [Entitic vol] 10.1 fL Normal 9.0-12.7 [facility] Platelets (Bld) [#/Vol] 370 10*3/uL Normal 150-400 [facility] RBC (Bld) [#/Vol] 6.00 10*6/uL High 3.90-5.20 [facility] WBC (Bld) [#/Vol] 13.18 10*3/uL High 3.70-11.00 [facility] ED NOTEon 06-19-2019 ED NOTE HNO ID: [id number] Author: Yuki WilksRn) MERA Cruz Service: ? Author Type: Registered Nurse Type: ED Notes Filed: 06/20/2019 3:27 AM Note Text: Patient has requested valium, she says that she takes it at home. Biago updated. Normal [facility] ED NOTE HNO ID: [id number] Author: Yuki WilksRn) MERA Cruz Service: ? Author Type: Registered Nurse Type: ED Notes Filed: 06/20/2019 3:27 AM Note Text: Patient is complaining of nausea. She is requesting her saboxon as well and Biago was updated on request. [facility] ED NOTE HNO ID: [id number] Author: Yuki WilksRn) MERA Cruz Service: ? Author Type: Registered Nurse Type: ED Notes Filed: 06/19/2019 7:54 PM Note Text: Said that after her surgery in 2016 her left pinky and ring finger are numb but she said lately her other fingers on that hand have been getting numb as well. [facility] ED NOTE HNO ID: [id number] Author: Vanessa WilksRn) MERA Ruiz Service: ? Author Type: Registered Nurse Type: ED Notes Filed: 06/19/2019 6:48 PM Note Text: Patient has chronic neck pain for three years. Saw spine doctor 06/12/2019 for the same had x rays. Denies any new injury. States pain goes into left arm. Arrived via wheelchair [facility] ED PROV NOTEon 06-19-2019 ED PROV NOTE HNO ID: [id number] Author: Tracy Arredondo Service: Emergency Medicine Author [...] light touch over bilateral lower extremities. 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 Decreased sensation to light touch over left upper extremity in median, radial, and ulnar nerve distribution. 5/5 senior commercial loan officer, bicep, tricep strength of R UE. [...] neurosurgical consult as previous notes from her executive relations specialist recommend obtaining EMG and possible further [...] a neurosurgical consult she warrants transfer to [facility] for further management of her condition. We have low suspicion for stroke at this time as pain appears to be radicular in nature and she has had worsening progression of her symptoms with documented notes from spine (Dr. Álvarez) suggesting this worsening pain and numbness. The CARPENTER/LABOR, Talita, at [facility] recommended we obtain a CT brain and she must rule out any acute intercranial abnormality that may be contributing to the patient's symptoms. Therefore, this study was ordered and will be followed up by the night team especially if there is any acute intracranial abnormality. As long as there is no acute intracranial abnormality she will be transferred to [facility] for further evaluation and management of her condition. Patient voiced understanding was in agreement with the above plan. This patient's case was discussed with Dr. Arredondo who personally evaluated the patient supervised her care. The patient was TRANSFERRED to: [facility] Condition at time of disposition: stable SIGNATURE: NORMA Montgomery (Pa) 06/20/19 0026 Attending Note I have personally performed a face to face assessment of the patient and have reviewed the PA/HOME PLANNING CONSULTANT SALESPERSON note. My schofield findings include: History is [...] of 5 strength left upper extremities in senior commercial loan officer strength as well as biceps and [...] worsening neck pain we will place her [place] observation for cardiac rule out as well [...] and requested by the observation provider at [facility] [place] as they were concerned about stroke. However I doubt this and did not feel this was necessary however it is currently pending and patient will be transferred to [place] if this is unremarkable. Signature: Tracy Arredondo DO Date: 06/20/2019 Time: 12:26 AM Tracy Arredondo 06/20/19 0033 Normal [facility] Magnesiumon 06-19-2019 Magnesium [Mass/Vol] 2.0 mg/dL Normal 1.7-2.3 [facility] Troponin Ton 06-19-2019 Troponin T.cardiac [Mass/Vol] ug/L Normal 0.000-0.02 9 [facility] CNOVon 06-12-2019 CNOV Office Visit (SPNMMN ) ----- MORALES LEE ([id number]) 1975 F Date Time Provider Department 06/12/19 [...] file Gets together: Not on file Attends scientologist service: Not on file Active member of [...] [Z98.890] Order(s):PATIENT PLACED ON SPINE CARE PATH [[id number]] Order #: [id number]: 1 XR SCOLIOSIS PA STAND/LAT 2V [[id number]] Order #: [id number] FUTURE EMG(NEURO/NI) [[id number]] Order #: [id number]: 1 FUTURE CONSULT TO SPINE SURGERY [[id number]] Order #: [id number]: 1 FUTURE Prescriptions as of 06/12/2019 Sig: [...] ZONISAMIDE 100 MG CAPSULE >> Talita Nadegeanmichel Dsailva 06/12/2019 8:08 AM >> VAHIDMICHEL TALITA DASILVA [...] Status:Closed by DIXIE TEE MD on 06/12/19 [facility] PROGRESSon 06-12-2019 PROGRESS HNO ID: [id number] Author: Robert Mittal (Rt) Service: Radiology Author Type: Building Drafter Type: Progress Notes Filed: 06/12/2019 10:10 AM [...] RT Daxa June 12, 2019 10:09 AM [facility] PROGRESS HNO ID: [id number] Author: Dixie Tee Service: ? Author Type: [...] file Gets together: Not on file Attends scientologist service: Not on file Active member of [...] healed incisions. Chest: symmetric expansion Data Review: [facility] records reviewed Care everywhere Lumbar CT [...] June 12, 2019 TIME: 8:12 AM Normal [facility] XR SCOLIOSIS 2V PA STAND/LAT on [...] changes and multilevel compression deformities as described. Planer Setter: PSCB Transcribe Date/Time: Jun 12 2019 4:36P Dictated by : CAROLINA MOJICA MD This examination was interpreted and the report reviewed and electronically signed by: CAROLINA MOJICA MD on Jun 12 2019 4:39PM EST [id number] Normal [facility] PROGRESSon 05-14-2019 PROGRESS HNO ID: [id number] Author: Laury Levin Service: ? Author Type: Physician Barrel Straightener Type: Progress Notes Filed: 05/14/2019 1:26 PM [...] to rule out cubital tunnel syndrome. Normal [facility] PROGRESSon 05-09-2019 PROGRESS HNO ID: [id number] Author: Kathia Kelly Service: ? Author Type: ? Type: Progress Notes Filed: 05/14/2019 1:26 PM Note Text: Patient name: Morales Lee Are you being referred by a [facility] Provider or Pain Management Provider at [facility]? No If answer is YES please schedule directly with surgeon, triage does not need to be completed. Is this a self-referral No If not, who is the Referring Provider: Dr. Hendricks/ [facility] MRI/CT/myelogram within 12 months: Yes If No , please refer to medical spine or PCP to complete above imaging, triage does not need to be completed Imaging viewable in Epic: No If not, please provide [phone] to fax in imaging reports for review. [...] will fax imaging report and op notes. [phone] Normal [facility] CT-CT C-SPINE WO CON IMPORTo n 02-13-2019 CT-CT C-SPINE WO CON IMPORT Images were obtained outside of [facility] [id number] Normal [facility] CT-CT L-SPINE WO CON IMPORTo n 02-13-2019 CT-CT L-SPINE WO CON IMPORT Images were obtained outside of [facility] [id number] Normal [facility] Vital Signs Date Time Vital Sign Value Performing Clinician Facility 05-14-2024 09:48-0400 Body height 157.5 cm Genny Orosco RESTAURANT KITCHEN AND SERVICE MANAGER Work Phone: [facility] 05-14-2024 09:48-0400 Body mass index (BMI) [Ratio] 34.75 kg/m2 Genny Orosco RESTAURANT KITCHEN AND SERVICE MANAGER Work Phone: [facility] 05-14-2024 09:48-0400 Body temperature 96.69 [degF] Genny Orosco RESTAURANT KITCHEN AND SERVICE MANAGER Work Phone: [facility] 05-14-2024 09:48-0400 Body weight 86.18 kg Genny Arizak RESTAURANT KITCHEN AND SERVICE MANAGER Work Phone: [facility] 05-14-2024 09:48-0400 Diastolic blood pressure 54 mm[Hg] Genny Barrosopatrick RESTAURANT KITCHEN AND SERVICE MANAGER Work Phone: [facility] 05-14-2024 09:48-0400 Heart rate 72 /min Genny Guidrytrick RESTAURANT KITCHEN AND SERVICE MANAGER Work Phone: [facility] 05-14-2024 09:48-0400 Systolic blood pressure 104 mm[Hg] Genny Guidrytrick RESTAURANT KITCHEN AND SERVICE MANAGER Work Phone: [facility] 06-07-2022 12:48-0400 Diastolic blood pressure 83 mm[Hg] No Pcp Required [facility] 06-07-2022 12:48-0400 Heart rate 67 /min No Pcp Required [facility] 06-07-2022 12:48-0400 Respiratory rate 16 /min No Pcp Required [facility] 06-07-2022 12:48-0400 SaO2% (BldA) [Mass fraction] 96 % No Pcp Required [facility] 06-07-2022 12:48-0400 Systolic blood pressure 148 mm[Hg] No Pcp Required [facility] 01-06-2022 10:51-0400 Blood Pressure Location NATALIA MANNING [facility] 01-06-2022 10:51-0400 Diastolic blood pressure 86 mm[Hg] NATALIA MANNING [facility] 01-06-2022 10:51-0400 Heart rate 86 /min NATALIA MANNING [facility] 01-06-2022 10:51-0400 Respiratory rate 16 /min NATALIA MANNING [facility] 01-06-2022 10:51-0400 Systolic blood pressure 132 mm[Hg] NATALIA MANNING [facility] 09-08-2021 14:15-0500 Body height 149.86 cm No PCP None [facility]-Neurosurgery- Ah uja Work Phone: 09-08-2021 14:15-0500 Body mass index (BMI) [Ratio] 36.96 kg/m2 No PCP None IC-Hbzjtjuyhnub-Co uja Work Phone: 09-08-2021 14:15-0500 Body surface area Derived from formula 1.78 m2 No PCP None TW-Eieggdytuhle-Rh uja Work Phone: 09-08-2021 14:15-0500 Body weight 83.01 kg No PCP None [facility]Ne[facility]surgery- Ah uja Work Phone: 09-08-2021 14:15-0500 Diastolic blood pressure 68 mm[Hg] No PCP None BM-Pawmjwqbmvdq-Hw uja Work Phone: 09-08-2021 14:15-0500 Heart rate 96 /min No PCP None [facility]- Ah uja Work Phone: 09-08-2021 14:15-0500 Respiratory rate 16 /min No PCP None [facility]Neurosurgery -Ah uja Work Phone: 09-08-2021 14:15-0500 Systolic blood pressure 115 mm[Hg] No PCP None QA-Vugpzidzarba-Yj uja Work Phone: 09-08-2021 14:15-0500 0 1 No PCP None [facility]Neurosurgery- Ah uja Work Phone: Comment on above: [facility] 01-01-2021 16:46-0400 Heart rate 111 /min No Pcp Required [facility] 01-01-2021 16:46-0400 SaO2% (BldA) [Mass fraction] 95 % No Pcp Required [facility] 01-01-2021 14:00-0400 Body temperature 96.8 [degF] No Pcp Required [facility] 01-01-2021 14:00-0400 Diastolic blood pressure 77 mm[Hg] No Pcp Required [facility] 01-01-2021 14:00-0400 Respiratory rate 18 /min No Pcp Required [facility] 01-01-2021 14:00-0400 Systolic blood pressure 114 mm[Hg] No Pcp Required [facility] Encounters Encounter Date Encounter Type Care Provider Facility Start: 07-12-2024 End: 07-15-2024 Clinisync Result Encounter Generic External Data Provider [facility] External Department Unsolicited Start: 07-12-2024 End: 07-15-2024 Clinisync Result Encounter Generic External Data Provider [facility] External Department Unsolicited Start: 06-08-2024 End: 06-08-2024 ambulatory Kathrine Patel RN [facility] r Start: 05-14-2024 End: 05-14-2024 Bamboo flowsheet Genny Orosco RESTAURANT KITCHEN AND SERVICE MANAGER Work Phone: [facility] Start: 05-14-2024 End: 05-22-2024 Clinisync Result Encounter Genny Arizak RESTAURANT KITCHEN AND SERVICE MANAGER Work Phone: [facility] External Department Unsolicited Start: 05-14-2024 End: 05-22-2024 Clinisync Result Encounter Genny Arizak RESTAURANT KITCHEN AND SERVICE MANAGER Work Phone: [facility] External Department Unsolicited Start: 05-14-2024 End: 05-14-2024 ambulatory GENNY GUIDRYTRICK Not Available Start: 05-14-2024 End: 05-14-2024 Office outpatient visit 15 minutes Genny Orosco RESTAURANT KITCHEN AND SERVICE MANAGER Work Phone: [facility] Comment on [...] 03-27-2024 End: 03-31-2024 Pre-admission assessment LEX FREDERICK [facility] Start: 03-26-2024 End: 04-07-2024 Pre-admission assessment LEX FREDERICK [facility] Start: 02-13-2024 End: 02-13-2024 ambulatory SHAIKH [...] encounter procedure Danya Bingham [facility] Start: 11-22-2022 ambulatory MENDOSA H FAWWAD Facilit y:H1 Start: 11-09-2022 End: 11-09-[address] DEVANTE ELIZONDO . Facility:[facility] Start: 10-15-2022 End: 10-15-2022 ambulatory KYRA SILVA . Facility:[facility] Start: 09-24-2022 End: 09-24-2022 Patient encounter procedure Danya Bingham [facility] Start: 09-01-2022 Encounter for preprocedural laboratory examination DANYA BINGHAM . [facility] Start: 08-25-2022 End: 08-25-2022 ambulatory MENDOSA H FAWWAD Facility:H1 Start: 08-24-2022 End: 08-25-2022 ambulatory MENDOSA H FAWWAD Facility:[facility]1 Start: 08-24-2022 End: 08-25-2022 Encounter for preprocedural laboratory examination MENDOSA H FAWWAD Facility:H1 Start: 08-21-2022 ambulatory MENDOSA H FAWWAD Facilit y:H1 Start: 07-16-2022 End: 07-16-2022 Patient encounter procedure Danya Bingham [facility] [employer] Start: 06-06-2022 End: 06-07-2022 Emergency department patient visit Yony Aguirre [facility] Adult ED Blue 45 Start: 05-31-2022 End: 05-31-[address] ALEXANDRU SORIA . Facility:[facility]1 Start: 05-19-2022 End: 05-19-2022 Off-Site Danya Bingham [facility] Start: 05-07-2022 End: 05-07-2022 ambulatory SHAIKH [...] 02-04-2022 Off-Site Danya Bingham [facility] Start: 01-11-2022 Chart Update No PCP None MG[facility]Neuro[facility] [place] Work Phone: Start: 01-11-2022 End: 01-11-2022 Patient encounter procedure Danya Bingham [facility] Start: 01-07-2022 AUDIT No PCP None MG-Neurosu [facility] [place] [address] Work Phone: Start: 01-06-2022 End: 01-06-2022 Patient encounter procedure NATALIA MANNING [facility] Start: 10-13-2021 AUDIT No PCP None MG-Neurosu [facility]-Miguel Work Phone: Start: 09-29-2021 AUDIT No PCP None MG-Gastroe nterology-B [facility] Work Phone: Start: 09-15-2021 End: 10-02-2021 Evaluation and management of inpatient Dr. LEX FREDERICK Facility:[facility] Start: 09-09-2021 AUDIT No PCP [facility] Work Phone: Start: 09-08-2021 Office outpatient vi sit 40 minutes No PCP None ZU-Jmtxmontrjwa-Rioth Work Phone: Start: 05-05-2021 Postop follow up vis it related to original px No PCP None EP-Unxnwhcomxxf-MIWEI Work Phone: Start: 12-26-2020 End: 01-01-2021 Evaluation and management of inpatient Lex Frederick [facility] Kaley [id number] [id number] Preoperative state No PCP None [facility] Work Phone: Procedures Date Procedure Procedure Detail Performing Clinician Start: 07-12-2024 Bacteria identified in Urine by Culture Generic External Data Provider Start: 05-18-2024 Drug test prsmv read direct optical obs pr date Genny Arizak RESTAURANT KITCHEN AND SERVICE MANAGER Work Phone: Start: 05-14-2024 COMPLIANCE DRUG ANAL YSIS, UR Genny Orosco RESTAURANT KITCHEN AND SERVICE MANAGER Work Phone: Start: 09-21-[address] EFRAIN FREDERICK Comment on above: Performed By: #### A FPA3 #### [facility] [address] [place] [address] Start: 09-21-[address] EFRAIN FREDERICK Comment on above: Order Comment: CUADRAJacque ESPINO, 09/21/2021 05:08TEST TYPE + SCREEN WAS CANCELLED, 09/21/2021 05:06 NO PHLEB ID ON TUBE. Result Comment: CALL ED MERA ESPINO, 09/21/2021 05:08 Performed By: #### A FPA3 #### [facility] [address] [place] [address] Start: 09-17-[address] EFRAIN FREDERICK Comment on above: Performed By: #### T +S #### [facility] [address] [place] [address] Start: 12-27-2020 End: 12-28-2020 Release Blood Product-Packed [...] Td Vaccines (2 - Td or Tdap) [facility] Start: 06-13-2024 End: 06-13-2024 Patient encounter procedure 06/13/2024 9:20 AM EDT Office Visit [facility] [address] [place] [phone] Lian Greer, FINANCIAL REPORTING SPECIALIST-CARPENTER/LABOR [address] [place] [address] [facility] Start: 05-14-2024 End: 05-14-2024 Patient encounter procedure 05/14/2024 9:30 AM EDT Office Visit [facility] [address] [place] [address] Genny Orosco, TAWANNA [address] [place] [address] [facility] Start: 05-06-2024 Influenza vaccination [facility] Start: 10-17-2023 End: 10-17-2023 Patient encounter procedure 10/17/2023 6:30 PM EST Office Visit [facility] [address] [place] [address] Shaikh Obrien MD [address] [place] [id number] [facility] Start: 2023 Administration of varicella zoster vaccine Zoster (Shingles) Vaccine (1 of 2) [facility] Start: 05-06-2023 Influenza vaccination Influenza Vacc ine (#1) [facility] Start: 11-03-2021 POV, Provider: Lex Frederick, Status: Pen, Time: 2:00 PM POV, Provider: Lex Frederick, Status: Pen, Time: 2:00 PM WT-Iqmrckhhfqrhgomi-T [facility] Work Phone: Start: 10-07-2021 Admission to [facility] RNVISIT, Provider: NURSE VISIT ASHLEY 5TH,MGNEUROSURGERY, Status: Pen, Time: 10:15 AM SD-Lvpfffushetdiasv-A [facility] Work Phone: Start: 09-18-2021 [facility], Provider: Lex Frederick, Status: Pen, Time: 8:00 AM [facility], Provider: Lex Frederick, Status: Pen, Time: 8:00 AM VM-Eoooriuuvzcl-Ffbsa Work Phone: Start: 01-08-2021 Patient encounter procedure Neurosurgery Miguel Start: 12-31-2020 End: 01-01-2022 [facility] Comment on above: please place at beds geraldine for drain removal Start: 12-26-2020 End: 12-27-2021 Naloxone Injectable 0.4 mg IntraVenous Push Once ; (NARCAN)DOSE = 0.2 mg IntraVenous Push Once, PRN patient is unarousable, and respiratory rate lessClinician Notes: HOLD WATCH LEADER Infusion and notify H.O. immediately Start: 26-Dec-2020 End: 26-Dec-2021 Ordered: 26-Dec-2020 Nabil Awan Intent Comments: HOLD WATCH LEADER Infusion and notify H.O. immediately [facility] Comment on above: HOLD WATCH LEADER Infusion an d notify H.O. immediately Start: 2013 Screening for malign ant neoplasm of breast Mammogram [facility] Start: 2003 Screening for malign ant neoplasm of cervix [facility] Start: 1994 Screening for malign ant neoplasm of cervix Pap Smear [facility] Start: 1991 Adult BMI Screening Adult BMI Screen ing [facility] Start: 1985 Depression Screening Depression Scre ening [facility] Start: 1985 Tobacco Screening Tobacco Screening [facility] Start: 1973 Screening for malign ant neoplasm of colon [facility] Bacteria identified in Urine by Culture URINE CULTURE, ROUTINE Lab Routine 07/12/2024 2:30 PM EST [facility] Immunizations Immunization Date Immunization Notes Care Provider Delfino chu 02-22-2020 tetanus toxoid, redu luis diphtheria toxoid, and acellular pertussis vaccine, adsorbed Danya Bingham [facility] 12-05-2018 hepatitis A vaccine, adult dosage Danya Lujacque [facility] Payers Date Payer Category Payer [facility] [id number] 2012 Unknown 1975 Unknown [id number] 2.16.840.1.464651.3.579.2 .356 1975 Unknown [id number] 2.16.840.1.652815.3.579.2 .356 1975 Unknown [id number] 2.16.840.1.548821.3.579.2 .593 1973 Unknown [id number] 2.16.840.1.767553.3.579.2 .593 1973 Unknown [id number] 2.16.840.1.324521.3.579.2 .593 1973 Unknown [id number] 2.16.840.1.095333.3.579.2 .593 1973 Unknown [id number] 2.16.840.1.982333.3.579.2 .593 1973 Unknown [id number] 2.16.840.1.682189.3.579.2 .593 1973 Unknown [id number] 2.16.840.1.029499.3.579.2 .593 1973 Unknown [id number] 2.16.840.1.746073.3.579.2 .593 1973 Unknown [id number] 2.16.840.1.923389.3.579.2 .593 1973 Unknown [id number] 2.16.840.1.185254.3.579.2 .593 1973 Unknown [id number] 2.16.840.1.931909.3.579.2 .593 1973 Unknown [id number] 2.16.840.1.821971.3.579.2 .593 1973 Unknown [id number] 2.16.840.1.956541.3.579.2 .593 1973 Unknown [id number] 2.16.840.1.734722.3.579.2 .593 1973 Unknown [id number] 2.16.840.1.440344.3.579.2 .593 1973 Unknown [id number] 2.16.840.1.652677.3.579.2 .593 1973 Unknown [id number] 2.16.840.1.042102.3.579.2 .593 1973 Unknown [id number] 2.16.840.1.510703.3.579.2 .1046 1973 Unknown [id number] 2.16.840.1.503209.3.579.2 .727 1973 Unknown [id number] 2.16.840.1.640366.3.579.2 .1259 1973 Unknown [id number] 2.16.840.1.202099.3.579.2 .1259 1973 Unknown [id number] 2.16.840.1.061104.3.579.2 .1259 1959 Unknown [id number] Social History Date Type Detail Facility [facility] Tobacco smoking consumption unknown [facility] Start: 08-01-2023 End: 02-13-2024 History of drug use History of drug use JG-Wxrojsqsuqvf-YWSA C Work Phone: Start: 01-05-2016 End: 02-13-2024 Tobacco smoking status Smokes tobacco daily (finding) [facility] Comment on above: 1ppd 1ppd Start: 08-08-2023 End: 02-13-2024 Sex Assigned At Female [facility] History of tobacco use [facility]igarette Smoker [facility] Start: 08-08-2023 End: 02-13-2024 Alcohol intake Lifetime non-drinker (finding) [facility] Start: 1975 Sex Assigned At Not on file [facility] Childcare Unknown [facility] History of tobacco use Passive smoker [facility] Medical Equipment Procedure Code Equipment Code Equipment Origin al Text Equipment Identifier Dates 2 EA, SubLingual , Daily, Refill(s) 0 Start: 01-05-2016 2 EA, SubLingual , Daily, Refill(s) 0 Start: 01-05-2016 2 EA, SubLingual , Daily, Refill(s) 0 Start: 01-05-2016 Functional Status Date Assessment Result Facility 11-26-2022 Functional Status N/A [facility] 07-16-2022 Functional Status N/A [facility] Functional observable [facility] Mental Status Date Assessment Result Facility 12-29-2020 Cognitive functi ons [id number] [facility] Clinical Notes 12-26-2020 to 06-08-2024 Telephone Encounter - Kathrine Patel RN - 06/08/2024 3:24 PM EDTTelephone Encounter - Kathrine Patel RN - 06/08/2024 3:24 PM EDTTelephone Encounter - Kathrine Patel RN - 06/08/2024 3:24 PM EDT Note Date & Type Note Facility 06-08-2024 Miscellaneous Notes ----- Message from [employer] sent at 06/08/2024 3:14 PM EDT ----- Contract: [facility] Lidoderm Patch from [facility], not sure if can use Contract: [facility] Patient is not a current patient of this office informed that we cannnot give advice without this. Will call her insurance company. No triage done Reason for Disposition Caller has cancelled the call before the first contact Protocols used: No Contact or Duplicate Contact Call-A-AH documented in this encounter [employer] 06-08-2024 Telephone encounter Note ----- Message from [employer] sent at 06/08/2024 3:14 PM EDT ----- Contract: [facility] Lidoderm Patch from [facility], not sure if can use [facility] 06-08-2024 Telephone encounter Note Contract: [facility] Patient is not a current patient of this office informed that we cannnot give advice without this. Will call her insurance company. No triage done [facility] 06-08-2024 Telephone encounter Note Reason for Disposition Caller has cancelled the call before the first contact Protocols used: No Contact or Duplicate Contact Call-A-AH [facility] 05-15-2024 History of Presen t illness [...] physician appointments and anticipated to need it long term and lifelong Images from the original note [...] States her daughter in law is an SHREDDER/GRANULATOR OPERATOR and helps care for her. When I [...] physician appointments and anticipated to need it long term and lifelong Psychophysiological insomnia Encounter for medication management Relevant Orders Rapid drug screen, urine Pressure ulcer, buttock Patient is wheelchair bound with limited mobility due to chronic LBP, b/l LE weakness. Has associated fecal and urinary incontinence. Relevant Orders Ambulatory referral to Wound Clinic Rapid drug screen, urine Caroline documented in this encounter [facility] 04-24-2024 Telephone encounter Note Patient would like a refill of her Valium. Was from [employer] but did not transfer to [employer]. [facility] 04-24-2024 Miscellaneous Notes Patient would like a refill of her Valium. Was from [employer] but did not transfer to [employer]. documented in this encounter [facility] 11-26-2022 Hospital Discharg e instructions Patient Education [...] 10/01/2017 Document Revised: 12/14/2019 Document Reviewed: 10/01/2017 [employer] Patient Education 2019 [employer]. Follow Up Care 10/14/2022 11:11:52 With:Danya Bingham MD, URL, URO Address: When: Unknown [facility] 09-23-2022 Hospital Discharg e instructions Patient [...] including vitamins, herbs, eye drops, creams, and hube-uzq-znyiynv medicines. Any problems you or family members [...] provider tells you to take them. Taking ocdf-faw-uzrrssp medicines, vitamins, herbs, and supplements. General instructions [...] Document Reviewed: 10/08/2019 Elsevier Patient Education 2019 [employer]. Follow Up Care 08/31/2022 10:49:10 With:Zachery HARKINS, CAROLEE Anderson, URO Address: When: Unknown [facility] 07-16-2022 Hospital Discharg e instructions Patient [...] nerve stimulation). For women, using a medical translator to prevent urine leaks. This is a [...] right after experiencing incontinence. General instructions Take nlzv-cvs-azxxpti and prescription medicines only as told by [...] 09/29/2005 Document Revised: 09/01/2018 Document Reviewed: 12/01/2017 [employer] Patient Education 2020 [employer]. Follow Up Care 06/15/2022 11:30:52 With:Zachery HARKINS, CAROLEE Anderson, URO Address: When: Unknown [facility] 02-04-2022 Hospital Discharg e instructions Patient [...] nerve stimulation). For women, using a medical translator to prevent urine leaks. This is a [...] right after experiencing incontinence. General instructions Take pckz-uuh-lxoeopi and prescription medicines only as told by [...] 09/29/2005 Document Revised: 09/01/2018 Document Reviewed: 12/01/2017 [employer] Patient Education 2020 [employer]. 02/04/2022 16:23:10 Calorie Counting for Weight Loss [...] 08/22/2006 Document Revised: 05/11/2019 Document Reviewed: 07/22/2017 [employer] Patient Education 2020 [employer]. Follow Up Care 02/04/2022 13:28:46 With:Danya Bingham [...] and Plan Diagnosis Bowel and bladder incontinence (DLZ29-JK R32, Billing Diagnosis, Medical). Incontinence without sensory awareness (BOJ69-IS N39.42, Working, Medical). Diagnosis Bowel and bladder incontinence (MQN39-NH R32, Billing Diagnosis, Medical). Incontinence without sensory awareness (LGS17-EL N39.42, Working, Medical). Addendum by Danya Bingham MD on January 11, 2022 10:23 EDT Post procedure diagnosis: Intrinsic sphincter deficiency, acontractile detrusor [facility]05-09-2022 Hospital Discharge instructions Patient Education 01/11/2022 [...] 01/06/2022 11:41:34 With:Danya Bingham Address: [address] [address]- [phone] Business (1) When: Unknown Comments:Call for followup appointment in 2-3 weeks With:Danya Bingham Address:Unknown When: Unknown [facility]05-04-2022 Hospital Discharge instructions Patient Education 01/06/2022 [...] clinics. Check with your local health department. [facility], where you would pay only what you can afford. To find one near you, check this website: www.[facility].org/iamg-px-gjxu/ [facility]. These are part of a [...] information Learn more about cervical cancer from: [employer]: www.acog.org/Patients/FAQs/Cervical-Cancer [employer]: www.cancer.org/cancer/cervicalcancer/ U.S. Centers for Disease [...] 09/05/2016 Document Revised: 09/23/2018 Document Reviewed: 04/19/2017 [employer] Patient Education 2020 [employer]. Follow Up Care 11/20/2021 10:16:51 With:NIGEL GREEN, NATALIA Santillan, URL Address: [address] [place] [address]. [place] [address] When:01/13/2022 [facility] 01-28-2022 NoteSend Summary: Discharge Summary Providers: [...] Care - New Vital Signs: T PRBPSpO2 Value36.7150263/6394% Date/Time10/02 8: 8: 8: 8: 8:00 Range(36.1C [...] placement 09/23 Patient transitioned from post op WATCH LEADER to oral pain regimen 09/24 Fitted for [...] or twist. Instead, bend at knees to cone picker objects (more content not included)...[facility]01-26-2022 NoteThis report has been cancelled.[facility]01-17-2022 NotePROCEDURE DETAILS Postoperative Diagnosis: lumbar stenosis Surgeon: Dr. Lex Frederick Resident/Fellow/Other Barrel Straightener: Chery Awan Procedure: posterior L4-L5 decompression posterior [...] Completion Last Updated: 22-Sep-2021 10:54 by Lex Frederick)[facility]01-17-2022 NoteHistory & Physical Reviewed: /Lactating: Are [...] the note. I personally evaluated the patient [id number] Electronic Signatures: Lex Frederick) (Signed 21-Sep-2021 11:50) Authored: Note Completion Co-Signer: History & Physical Reviewed, ERAS, Consent, Note Completion Jaya Mosquera (Resident)) (Signed 21-Sep-2021 02:51) Authored: History & Physical Reviewed, ERAS, Consent, Note Completion Last Updated: 21-Sep-2021 11:50 by Lex Frederick () References: 1. Data Referenced From MRI Safety Screen v2 19-Sep-2021 19:00[facility]01-15-2022 NoteRehab: Info: Mode of Treatmentoccupational therapy; attempted; OT evaluation initiated with home set-up obtained (1st floor set up/ 0 step entry, lives with , tub shower with chair); Pt with low BP upon arrival 79/54. Second BP reading taken at 71/51. RN notified, further evaluation deferred at this time. OT to reattempt when pt medically appropriate. 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 Exploration of spinal [...] performed and the images transferred to the [employer] system for use in intraoperative image-guided computer-assisted [...] using the torque dri (more content not included)...[facility]01-14-2022 NoteThis report has been cancelled.[facility]01-14-2022 NoteHistory & Physical Reviewed: /Lactating: Are [...] the note. I personally evaluated the patient [id number] Electronic Signatures: Fidel Maciel (Resident)) (Signed 17-Sep-2021 22:49) Authored: History & Physical Reviewed, ERAS, Consent, Note Completion Lex Frederick) (Signed 19-Sep-2021 10:17) Authored: Note Completion Co-Signer: History & Physical Reviewed, ERAS, Consent, Note Completion Last Updated: 19-Sep-2021 10:17 by Lex Frederick) References: 1. Data Referenced From MRI Safety Screen v2 17-Sep-2021 11:28[facility]01-11-2022 NoteReferral Information: Consult requested by (Attending [...] be able to m (more content not included)...[facility]01-11-2022 NoteHistory of Present Illness: /Lactating: Are [...] the note. I personally evaluated the patient [id number] Electronic Signatures: Fidel Maciel (Resident)) (Signed 15-Sep-2021 [...] Plan Last Updated: 16-Sep-2021 10:20 by Lex Frederick)[facility]04-23-2021 History of Present illness Narrative* I just had the pleasure of seeing Mrs. Jesus villarreal in the Neurosurgery Spine Clinic at the [facility]. She is a very pleasant 46-year-old female, [...] Ms. JESUS hollis. * Lex Frederick MD, [facility], [facility] * Director - Minimally Invasive Spine Surgery * [facility] * Box Sorter of Neurological Surgery * [facility] [employer] * [place], [place] * Some of this note was completed using [employer] voice recognition technology and sometimes the software misinterprets words. This may include unintended errors with respect to translation of words, typographical errors or grammar errors which may not have been identified prior to finalization of the chart note. Please take this into account when reading this note. IM[facility]Kpfivabnagxx-Yqstq Work Phone: [phone] 319-985604-23-2021 Reason for referral (narrative)* Reason for Referral: Patient s/p posterior bilateral L1 transpedicular decompression, posterior T7-T8, T8-T9, T9-T10, T0-T11, T11-T12, T12-L1 hutton hernandez osteotomies, Posterior T5-L4 instrumentation and fusion on 12/26 [facility] Future Appointments Appointment Date:01/07/2022 11:00:00 AM Scheduled Provider: [facility] Appointment Type:Urology CALL PAT FT Appointment Date:01/11/2022 08:00:00 AM Scheduled Provider: Location:[facility] Appointment Type:Urology FT Appointment Date:01/11/2022 09:00:00 AM Scheduled Provider: Location:[facility] Appointment Type:Urology FT [facility] Caroline evaluation + [facility] + Plan note Future Appointments Appointment Date:04/06/2024 12:00:00 PM Scheduled Provider: Location:.MRI Appointment Type:MRI Spine (FT) Appointment Date:04/06/2024 12:00:00 PM Scheduled Provider: Location:[facility] Appointment Type:Surgery FT Future Scheduled Tests Radiology* MRI Spine Cervical w/o Contrast 04/06/24 * MRI Spine Lumbar w/o Contrast 04/06/24 * MRI Spine Thoracic w/o Contrast 04/06/24 [facility] Evaluation note* Neurological: jzjfzwh5dgv 5/5 except hg/io4+ble 5/5incision cdiHead/Neck: Ox3, awake, alertBUE 5 prox, HG/IO4+BLE HF/KE/DF/PF/EHL 5 [facility]* Constitutional: in no acute distressSkin: Well perfusedEyes: OU 3RHead/Neck: atraumatic, normocephal icRespiratory/Thorax: airway intact, good chest expansionCardiovascular: normal rate, regular rhythmGastrointestinal: non-tenderNeurological: NAD, A&Te1Gazibub Nerves II-XII: PERRL, EOMI, Face symmetric, Facial SILT, Palate/Tongue midline and symmetric, shoulder shrugs symmetric, hearing intact to finger rubs bilaterallyMotor: RUE D5, B5, T5, HG5, IO5LUE D5, B5, T5, HG5, IO5RLE HF 4+, KE4+, PF4-, DF3LLE HF 4+, KE4+, PF3, DF4-Sensation: SILT throughout all extremitiesPsychological: mood appropriate [facility]* Diagnosis Chronic low back pain, [...] whether sciatica present documented in this encounter [facility] HealthcareHospital course Narrative No data available for this section [facility] Discharge instructions* Activity:activity as tolerated. May [...] Certification:Home Care Services Needed: yesSkilled Disciplines Ordered: RN/DRUM STRAIGHTENER, PT, OTFace to Face Encounter Completed: yesDate of Encounter: [id number] Necessity for Homecare (based on clinical findings): [...] washing dishes, & loading the dryer or seo engineer until cleared by MD. * Wound Care:Inspect [...] - Neurosurgeon:Physician/Dept/Service: NeurosurgeonDr Josephuled Date/Time: 08-Jan-2021 10:40Location: [facility], [facility] [address] [place], [place]Phone Number: [phone]: 2 week postop/wound check visit; Bring Insurance Card and Photo ID [facility] Dis[facility] instructions No data available for this section [facility] InstructionsNot on filedocumented in this encounter [facility] SystemProgress note No data available for this section [facility] reason for referral (narrative) , urinary incontinence, neurogenic bladder, open bladder neck, possible SP tube placement Referred by: Zachery HARKINS, Danya Rhodes [facility] reason for referral (narrative)* Consultation (Routine) - Authorized Specialty Diagnoses / Procedures Referred By Pablo saavedra Referred To Contact Wound Care Diagnoses Pressure injury of skin of buttock, unspecified injury stage, unspecified laterality Procedures ME OFFICE/OUTPATIENT NEW HIGH MDM 60 MINUTES Genny Orosco NP [address] [place] [phone] Pérez Pederson MD [address], [place] [address] Referral ID Status Reason Start Date Expiration Date Visits Requested Visits Authorized [id number] Authorized Specialty Services Required 05/15/2024 11/11/2024 1 [...] section and content) DATE CREATED AUTHOR 06/20/2019 [facility] DATE CREATED AUTHOR AUTHOR'S ORGANIZ ATION 06/20/2019 [facility] DATE CREATED AUTHOR AUTHOR'S ORGANIZ ATION 07/26/2019 [facility] DATE CREATED AUTHOR AUTHOR'S ORGANIZ ATION 12/29/2020 [facility] DATE CREATED AUTHOR AUTHOR'S ORGANIZ ATION 09/16/2021 [employer] DATE CREATED AUTHOR AUTHOR'S ORGANIZ ATION 11/25/2021 [facility] DATE CREATED AUTHOR AUTHOR'S ORGANIZ ATION 12/10/[address] [facility] DATE CREATED AUTHOR AUTHOR'S ORGANIZ ATION 08/06/2022 [facility] DATE CREATED AUTHOR AUTHOR'S ORGANIZ ATION 01/17/2023 [facility] DATE CREATED AUTHOR AUTHOR'S ORGANIZ ATION 06/09/2023 [facility] DATE CREATED AUTHOR AUTHOR'S ORGANIZ ATION 12/29/2023 [place] [facility] DATE CREATED AUTHOR AUTHOR'S ORGANIZ ATION 05/15/2024 [facility] dical Specialists EPIC <item><item> Privacy Markings (unrecogniz [...] Care Team (unrecognized sect ion and content) Tractor Mechanic Relationship Specialty Start Date End Date Shaikh Obrien MD PCP - General Internal Medicine 08/05/23 Tractor Mechanic Relationship Specialty Start Date End Date Shaikh Obrien MD PCP - General Internal Medicine 11/15/22 Tractor Mechanic Relationship Specialty Start Date End Date Unallocated, Lobo Juarez MD [address] [place] [address] PCP - General Family Medicine 06/04/24 Genny Orosco NP [address] [phone] Nurse Practitioner Family Medicine 04/12/24 Tractor Mechanic Relationship Specialty Start Date End Date Kostas Ching MD [address] [place] [phone] PCP - General Family Medicine 04/12/24 Genny Orosco NP [address] [place] [address] Nurse Practitioner Family Medicine 04/12/24 Tractor Mechanic Relationship Specialty Start Date End Date Kostas Ching MD [address] [place] [phone] PCP - General Family Medicine 04/12/24 Genny Orosco NP [address] [place] [phone] Nurse Practitioner Family Medicine 04/12/24 Tractor Mechanic Relationship Specialty Start Date End Date Kostas Ching MD [address] [place] [phone] PCP - General Family Medicine 04/12/24 Genny Orosco NP [address] [place] [phone] Nurse Practitioner Family [facility] 04/12/24 Tractor Mechanic Relationship Specialty Start Date End Date Kostas Ching MD [address] [place] [phone] PCP - General Family Medicine 04/12/24 Genny Orosco NP [address] [place] [phone] Nurse Practitioner Family Medicine 04/12/24 Reason for [...] BE BASED ON THE PRIMARY CLINICAL RECORDS. [facility] [employer] [facility]. provides no warranty or guarantee of the accuracy or completeness of information in this document.
--- OUTSIDE RECORDS SUMMARY | 2024-08-26 12:41 | XMS_ITS | CCD ---
Author Organization [facility] Care Team Providers Care Dryerman/Woman Name Role Phone Required, No Pcp Unavailable [...] Admitting Unavailable VETO ., IVON Attending Unavailable [facility] Primary Care Unavailable PATRICK, DEBORAH Aponte Consulting Unavailable [facility] Primary Care Unavailable REINECK, DR ABHINAV Livingston Admitting Unavailabl e REINECK, DR ABHINAV Livingston Consulting Unavailabl e REINECK, DR ABHINAV Livingston Attending Unavailabl e HAY ., DR LOW Admitting Unavailable [facility] Primary Care Unavailable HAY ., DR LOW Attending Unavailable ZIEBER, DR ENRIQUE Santana Consulting Unavailable HAY ., DR LOW Consulting Unavailable LUE ., DANYA M Admitting Unavailable LUE ., DANYA M Attending Unavailable [facility] Primary Care Unavailable [facility] Primary Care Unavailable LUE ., DANYA M Admitting Unavailable LUE ., DANYA M Consulting Unavailable LUE ., DANYA M Attending Unavailable CANDICE MATTA Consulting Unava ilRACHEL Kirk Consulting Unavailable DIAB ., KYRA Admitting Unavailable [facility] Primary Care Unavailable DIAB ., KYRA Attending Unavailable GRECHNY ., BONITA HULL Consulting [facility] Unavailable LUE ., DANYA M Admitting Unavailable LUE ., DANYA M Consulting Unavailable LUE ., DANYA Aponte Attending Unavailable PAY ., DR RODRIGUEZ Admitting Unavailable PAY ., DR RODRIGUEZ Consulting Unavailable [facility] Primary Care Unavailable PAY ., DR RODRIGUEZ Attending Unavailable [facility] Primary Care Unavailable REINECK, DR ABHINAV Livingston Admitting Unavailabl e REINECK, DR ABHINAV Livingston Consulting Unavailabl e REINECK, DR ABHINAV Livingston Attending Unavailabl e KORIN STANLEY Consulting Unavailable Otoniel, Dr. Lex De Los Santos Attending Kiana Obrien MD, [facility] Care Provider [facility] Care Unavailable Lue, Danya Aponte. Attending Unavailable SHAIKH OBRIEN Attending Unavailable SHAIKH OBRIEN Attending Unavailable GENNY OROSCO Attending Unavailabl jacque Obrien MD, [place] Primary Care Provider [phone] Kwesi STACY, Genny Unavailable Unallocated , [place] Provider Primary Care Provi marilu Kostas Ching MD Primary Care Provider Allergies Allergy Classification Reported Allergen(s) Allergy Type Date of Onset Reaction(s) Facility Opioid Agonists (1 source) Codeine Drug Allergy Unknown [facility] Penicillins (antibiotic) (1 source) Penicillin Drug Allergy Unknown [facility] QUEtiapine (1 source) QUEtiapine Drug Allergy Unknown [facility] (20 sources) Codeine; Translations: [Codeine] Drug Allergy 6 Hives, Facial Swelling [facility] Work Phone: (20 sources) Penicillins; Translations: [Penicillins] Allergy to drug (finding) Hives, Unknown [facility] Work Phone: (16 sources) Promethazine; Translations: [promethazine] Drug Allergy 1 Swelling, Unknown [facility] (1 source) QUEtiapine Drug Allergy Seizures [facility] (2 sources) Codeine Drug Allergy 3 [facility] Rep[facility] (3 sources) gabapentin; Translations: [Neurontin] Drug Allergy [facility] (1 source) Levamisole Drug Allergy [facility] (1 source) Morphine Drug Allergy 0 [facility] (2 sources) Penicillins Drug allergy (disorder) 3 [facility] (1 source) QUEtiapine Drug Allergy 3 [facility] (7 sources) Penicillins Drug Allergy 3 Hives, GI intolerance [facility] (7 sources) QUEtiapine Drug Allergy 3 Unknown [facility] (1 source) Penicillin Drug Allergy 6 Facial Swelling [facility] (1 source) Phenergan Plain Propensity to adverse reactions to drug 6 Swelling, Facial Swelling [facility] Medications Current Medications Medication Drug [...] q12hr, # 2 cap(s), Refills(s) 0, [facility]acy: [id number], 156, cm, 07/16/22 10:58:00 EST, Height/Length Dosing, [...] day(s), # 2 tab(s), Refills(s) 0, Pharmacy: [address], 156, cm, 01/06/22 10:53:00 EDT, Height/Length [...] oral Quantity: 0 Refills: 0 Ordered: 05-Dec-2020 Carloe Mcdaniel Status: Discontinued Generic Substitution Allowed diclofenac [...] Allowed docusate sodium 50 mg / sennosides, skilled nursing 8.6 mg oral tablet (2 sources) Start: [...] 01-05-2016 take 2 capsules by m [facility] three times daily Neurontin 100 mg Cap 200 mg = 2 cap(s), Oral, TID, Refills(s) 0 Start Date: 01/05/16 Status: Ordered Start: 04-17-2015 take 1 capsule by mo [facility] three times daily gabapentin (NEURONTIN) 300 mg [...] 04-17-2015 take 1 capsule by mo [facility] once daily hydrochlorothiazide (MICROZIDE) 12.5 mg capsule [...] tab(s), Refills(s) 3, [facility]: [facility] [facility], 156, cm, 02/04/22 15:47:00 EDT, Height/Length Dosing, 78, kg, 02/04/22 15:47:00 EDT, Weight Dosing Start Date: 02/25/22 Status: Ordered nystatin 100 unt/mg topical powder (7 sources) Polyene Antifungal Start: 03-07-2023 Nyamyc [id number] UNIT/GM powder Apply 1 application topically in [...] 30 tab(s), Refills(s) 11, [facility]: [facility] #[id number], 156, cm, 07/16/22 10:58:00 EST, Height/Length Dosing, 78, kg, 07/16/22 10:58:00 EST, Weight Dosing Start Date: 10/04/22 Status: Ordered Start: 07-16-2022 take 1 tablet by marlen th once daily oxybutynin 10 mg ER Tab 10 mg = 1 tab(s), Oral, Daily, # 30 tab(s), Refills(s) 11, [facility]: [facility] #[id number], 156, cm, 07/16/22 10:58:00 EST, Height/Length Dosing, 78, kg, 07/16/22 10:58:00 EST, Weight Dosing Start Date: 07/16/22 Status: Ordered Start: 03-10-2022 take 1 tablet by marlen th once daily oxybutynin 10 mg ER Tab 10 mg = 1 tab(s), Oral, Daily, # 30 tab(s), Refills(s) 3, Pharmacy: [address], 156, cm, 02/04/22 15:47:00 EDT, Height/Length [...] 07-Jan-2021 Generic Substitution Allowed polyethylene glycol 3350 74217 mg powder for oral solution (3 sources) [...] Daily, # 30 cap(s), Refills(s) 0, Pharmacy: [address], 156, cm, 01/07/22 13:43:00 EDT, Height/Length [...] # 2 cap(s), Refills(s) 0, [facility]: [facility][id number], 156, cm, 11/26/22 8:15:00 EDT, Height/Length Dosing, [...] Discontinued Generic Substitution Allowed polyethylene glycol 3350 593634 mg / potassium chloride 2970 mg / sodium bicarbonate 6740 mg / sodium chloride 5860 mg / sodium sulfate 09575 mg powder for oral solution (8 sources) [...] 11-01-2023 Chronic Other aftercare (2 sources) Other group home (current) drug therapy; Translations: [Other group home (current) drug therapy] Onset: 2 Episodic Other [...] consultation, please call . ======= Performed at: [facility] [address] [place] [address] [id number] [place] [employer]: [facility], Phone: [phone] Specimen Comment: [facility], [facility] FLEX or MAT drug testin Specimen Comment: -Technical component - Data analysis performed at Specimen Comment: [facility], [address] [place] [address] Specimen Comment: [id number]. [phone] [place] James Barrera MD. [facility] [...] [facility] Outside Recordson 12-28-2023 Outside Records [id number] Normal [facility] Physician Orderon 12-14-2023 Physician Order [id number] [facility] ED Note-Physicianon 03-14-20 ED Note-Physician [id number]#1.00CD:12 7 Normal [facility] ED Note-Physicianon 01-23-20 ED Note-Physician [id number]#1.00CD:12 7 Normal [facility] ED Note-Physician [id number]#1.00CD:12 7 [facility] Lab Reportson 01-22-2023 Lab Reports [id number]#1.00CD:12 7 [facility] Patient Correspondenceon Patient Correspondence [id number]#[id number]:12 7 [facility] CULTURE URINEon 01-16-2023 CULTURE [...] Performed By: #### U MICRO, ERUR #### [facility] [address] [place] [address] Dr. Alfredo Lizama CBC AUTO DIFFon 01-13-2023 BASO # 0.1 103/ul Normal 0.0-0.1 [facility] Comment on above: Performed By: #### U MICRO, ERUR #### [facility] [address] [place] [address] Dr. Alfredo Lizama Basophils/100 WBC (Bld) 0.7 % Normal 0.2-2.0 [facility] Comment on above: Performed By: #### U MICRO, ERUR #### [facility] [address] [place] [address] Dr. Alfredo Lizama EO # 0.3 103/ul Normal 0.0-0.7 [facility] Comment on above: Performed By: #### U MICRO, ERUR #### [facility] [address] [place] [address] Dr. Alfredo Lizama Eosinophils/100 WBC (Bld) 3.2 % Normal 0.9-7.0 [facility] Comment on above: Performed By: #### U MICRO, ERUR #### [facility] [address] [place] [address] Dr. Alfredo Lizama Erythrocyte distribution width (RBC) [Ratio] 13.0 % Normal 11.0-15.0 [facility] Comment on above: Performed By: #### U MICRO, ERUR #### [facility] [address] [place] [address] Dr. Alfredo Lizama Hematocrit (Bld) [Volume fraction] 43.2 % Normal 36.0-48.0 [facility] Comment on above: Performed By: #### U MICRO, ERUR #### [facility] [address] [place] [address] Dr. Alfredo Lizama Hemoglobin (Bld) [Mass/Vol] 14.1 g/dL Normal 12.0-16.0 [facility] Comment on above: Performed By: #### U MICRO, ERUR #### [facility] [address] [place] [address] Dr. Alfredo Lizama IG # 0.02 10e3/ul Normal 0.00-0.03 [facility] Comment on above: Performed By: #### U MICRO, ERUR #### [facility] [address] [place] [address] Dr. Alfredo Lizama IG % 0.2 % Normal 0.0-0.5 [facility] Comment on above: Performed By: #### U MICRO, ERUR #### [facility] [address] [address] [address] Alfredo Lizama LYMPH # 3.0 103/ul Normal 1.2-3.8 [facility] Comment on above: Performed By: #### U MICRO, ERUR #### [facility] [address] [place] [address] Dr. Alfredo Lizama Lymphocytes/100 WBC (Bld) 35.6 % Normal 20.5-60.0 [facility] Comment on above: Performed By: #### U MICRO, ERUR #### [facility] [address] [place] [address] Dr. Alfredo Lizama MANUAL DIFF REQ NO Normal [facility] Comment on above: Performed By: #### U MICRO, ERUR #### [facility] [address] [place] [address] Dr. Alfredo Lizama MCH (RBC) [Entitic mass] 29.4 pg Normal 26.7-34.0 [facility] Comment on above: Performed By: #### U MICRO, ERUR #### [facility] [address] [place] [address] Dr. Alfredo Lizama MCHC (RBC) [Mass/Vol] 32.6 g/dL Normal 29.9-35.2 [facility] Comment on above: Performed By: #### U MICRO, ERUR #### [facility] [address] [place] [address] Dr. Alfredo Lizama MCV (RBC) [Entitic vol] 90.0 fL Normal 81.0-99.0 [facility] Comment on above: Performed By: #### U MICRO, ERUR #### [facility] [address] [place] [address] Dr. Alfredo Lizama MONO # 0.4 103/ul Normal 0.3-0.8 [facility] Comment on above: Performed By: #### U MICRO, ERUR #### [facility] [address] [place] [address] Dr. Alfredo Lizama Monocytes/100 WBC (Bld) 4.8 % Normal 1.7-12.0 [facility] Comment on above: Performed By: #### U MICRO, ERUR #### [facility] [address] [address] [address] Alfredo Lizama NEUT # 4.7 103/ul Normal 1.4-6.5 [facility] Comment on above: Performed By: #### U MICRO, ERUR #### [facility] [address] [address] [address] Alfredo Lizama Neutrophils/100 WBC (Bld) 55.5 % Normal 43.0-75.0 [facility] Comment on above: Performed By: #### U MICRO, ERUR #### [facility] [address] [address] [address] Alfredo Lizama Platelet mean volume (Bld) [Entitic vol] 9.5 fL Normal 9.5-13.5 [facility] Comment on above: Performed By: #### U MICRO, ERUR #### [facility] [address] [address] [address] Alfredo Lizama PLT 267 103/ul Normal 150-450 [facility] Comment on above: Performed By: #### U MICRO, ERUR #### [facility] [address] [place] [address] Dr. Alfredo Lizama RBC 4.80 106/ul Normal 4.20-5.40 [facility] Comment on above: Performed By: #### U MICRO, ERUR #### [facility] [address] [address] [address] Alfredo Lizama WBC 8.5 103/ul Normal 4.0-11.0 [facility] Comment on above: Performed By: #### U MICRO, ERUR #### [facility] [address] [address] [address] Alfredo Lizama ER URINE PROFILEon 3 Bilirubin Ql (U) Negative Normal NEGATIVE [facility] Comment on above: Performed By: #### E RUR UMICRO #### [facility] [address] [place] [address] Dr. Alfredo Lizama Clarity (U) CLOUDY Abnormal CLEAR [facility] Comment on above: Performed By: #### Jacque ESTRADA UMICRO #### [facility] [address] [place] [address] Dr. Alfredo Lizama Color (U) YELLOW Normal YELLOW [facility] Comment on above: Performed By: #### Jacque ESTRADA UMICRO #### [facility] [address] [place] [address] Dr. Alfredo Lizama ERUAHD A micrscopic examina tion will be performed if indicated. Normal [facility] Comment on above: Performed By: #### Jacque ESTRADA UMICRO #### [facility] [address] [place] [address] Dr. Alfredo Lizama Glucose Ql (U) Negative Normal NEGATIVE [facility] Comment on above: Performed By: #### Jacque ESTRADA UMICRO #### [facility] [address] [place] [address] Dr. Alfredo Lizama Hemoglobin Ql (U) MODERATE Abnormal NEGATIVE [facility] Comment on above: Performed By: #### Jacque ESTRADA UMICRO #### [facility] [address] [place] [address] Dr. Alfredo Lizama Ketones Ql (U) TRACE Abnormal NEGATIVE [facility] Comment on above: Performed By: #### Jacque ESTRADA UMICRO #### [facility] [address] [place] [address] Dr. Alfredo Lizama LEUKOCYTES SMALL Abnormal NEGATIVE [facility] Comment on above: Performed By: #### Jacque ESTRADA UMICRO #### [facility] [address] [place] [address] Dr. Alfredo Lizama Nitrite Ql (U) Negative Normal NEGATIVE [facility] Comment on above: Performed By: #### Jacque ESTRADA UMICRO #### [facility] [address] [place] [address] Dr. Alfredo Lizama pH (U) 8.0 [pH] Normal 5-9 [facility] Comment on above: Performed By: #### Jacque ESTRADA UMICRO #### [facility] [address] [place] [address] Dr. Alfredo Lizama Protein (U) [Mass/Vol] 100 mg/dL Abnormal NEGAT LATISHA/ TRACE [facility] Comment on above: Performed By: #### CHINMAY CHAVESRO #### [facility] [address] [place] [address] Dr. Alfredo Lizama SPEC GRAVITY 1.015 Normal 1.005-<=1. 025 [facility] Comment on above: Performed By: #### Jacque ESTRADA UMICRO #### [facility] [address] [place] [address] Dr. Alfredo Lizama UR MICRO IND INDICATED Normal [facility] Comment on above: Performed By: #### CHINMAY CHAVESRO #### [facility] [address] [place] [address] Dr. Alfredo Lizama Urobilinogen Qn (U) 1.0 {Tesha'U}/dL Normal 0.2 - 1. 0 [facility] Comment on above: Performed By: #### CHINMAY CHAVESRO #### [facility] [address] [place] [address] Dr. Alfredo Lizama PROF CHEM 8 (BAS METB)on Anion gap [Moles/Vol] 8.4 mmol/L Normal [facility] Comment on above: Performed By: #### U MICRO, ERUR #### [facility] [address] [place] [address] Dr. Alfredo Lizama Calcium [Mass/Vol] 8.7 mg/dL Normal 8.5-10.1 [facility] Comment on above: Performed By: #### U MICRO, ERUR #### [facility] [address] [place] [address] Dr. Alfredo Lizama Chloride [Moles/Vol] 107 mmol/L Normal 98-107 [facility] Comment on above: Performed By: #### U MICRO, ERUR #### [facility] [address] [place] [address] Dr. Alfredo Lizama CO2 [Moles/Vol] 28.3 mmol/L Normal 21.0-32.0 [facility] Comment on above: Performed By: #### U MICRO, ERUR #### [facility] [address] [address] [address] Alfredo Lizama Creatinine [Mass/Vol] 0.70 mg/dL Normal 0.55-1.02 [facility] Comment on above: Performed By: #### U MICRO, ERUR #### [facility] [address] [address] [address] Alfredo Lizama EGFR-AF BELGIAN >60 Normal >=60 [facility] Comment on above: Performed By: #### U MICRO, ERUR #### [facility] [address] [address] [address] Alfredo Lizama EGFR-NON AF BELGIAN >60 Normal >=60 [facility] Comment on above: Performed By: #### U MICRO, ERUR #### [facility] [address] [address] [address] Alfredo Lizama Glucose [Mass/Vol] 97 mg/dL Normal 74-106 [facility] Comment on above: Performed By: #### U MICRO, ERUR #### [facility] [address] [address] [address] Alfredo Lizama Potassium [Moles/Vol] 3.7 mmol/L Normal 3.5-5.1 [facility] Comment on above: Performed By: #### U MICRO, ERUR #### [facility] [address] [address] [address] Alfredo Lizama Sodium [Moles/Vol] 140 mmol/L Normal 136-145 [facility] Comment on above: Performed By: #### U MICRO, ERUR #### [facility] [address] [address] [address] Alfredo Lizama Urea nitrogen [Mass/Vol] 7.0 mg/dL Normal 7.0-18.0 [facility] Comment on above: Performed By: #### U MICRO, ERUR #### [facility] [address] [address] [address] Alfredo Lizama Urea nitrogen/Creatinine [Mass ratio] 10.0 mg/mg Normal [facility] Comment on above: Performed By: #### U MICRO, ERUR #### [facility] [address] [address] [address] Alfredo Lizama URINE MICROSCOPIC ONLYon AMORPHOUS CRYSTALS FEW Normal [facility] Comment on above: Performed By: #### Jacque ESTRADA UMICRO #### [facility] [address] [place] [address] Dr. Alfredo Lizama BACTERIA LARGE Abnormal NONE SEEN [facility] Comment on above: Performed By: #### Jacque ESTRADA UMICRO #### [facility] [address] [place] [address] Dr. Alfredo Lizama Bacteria identified Cx Nom (U) INDICATED Normal [facility] Comment on above: Performed By: #### Jacque ESTRADA UMICRO #### [facility] [address] [place] [address] Dr. Alfredo Lizama CAST NONE SEEN Normal NONE SEEN [facility] Comment on above: Performed By: #### Jacque ESTRADA UMICRO #### [facility] [address] [place] [address] Dr. Alfredo Lizama Crystals LM Nom (Urine sed) SEEN Abnormal NONE SEEN [facility] Comment on above: Performed By: #### Jacque ESTRADA UMICRO #### [facility] [address] [place] [address] Dr. Alfredo Lizama Epithelial cells LM Ql (Urine sed) RARE Normal NONE SEEN /RARE [facility] Comment on above: Performed By: #### Jacque ESTRADA UMICRO #### [facility] [address] [place] [address] Dr. Alfredo Lizama MUCOUS NONE SEEN Normal NONE SEEN [facility] Comment on above: Performed By: #### Jacque ESTRADA UMICRO #### [facility] [address] [place] [address] Dr. Alfredo Lizama RBC 2-5 Abnormal 0-2 [facility] Comment on above: Performed By: #### Jacque ESTRADA UMICRO #### [facility] [address] [place] [address] Dr. Alfredo Lizama TRIPLE PHOS CRYSTALS FEW Normal [facility] Comment on above: Performed By: #### LINDA CHAVES #### [facility] [address] [address] [address] Alfredo Lizama WBC 75-100 Abnormal NONE SEEN [facility] Comment on above: Performed By: #### LINDA CHAVES #### [facility] [address] [place], [place] [address] Dr. Alfredo Lizama Patient Letter FTon 2022 Patient Letter [facility] (Inserted Image. Shelly ble to display) January 10, 2023 MORALES LEE [address] [place] [address] MORALES LEE 1975 Dear Morales, I am corresponding with you by certified mail because of repeat non compliance. You missed your catheter exchange appointment on 12/31/22. It is recommended your Alvares catheter be exchanged every 4 weeks to prevent encrustation and infection. Also you were referred to Dr Zhang at [facility] for further evaluation regarding your condition [...] Danya Bingham MD [facility] [address] [facility], [place] [address] [facility] CULTURE URINEon 12-25-2022 CULTURE [...] Trimethoprim/Sulfamethoxa zole <=20 S F Normal [facility] Comment on above: Performed By: #### U MICRO, ERUR #### [facility] [address] [place] [address] Dr. Alfredo Lizama AMYLASEon 11-09-2022 Amylase [Catalytic activity/Vol] 14 U/L Critically low 25-115 [facility] Comment on above: Performed By: #### U MICRO, ERUR #### [facility] [address] [place] [address] Dr. Alfredo Lizama CBC AUTO DIFFon 11-09-2022 BASO # 0.1 103/ul Normal 0.0-0.1 [facility] Comment on above: Performed By: #### U MICRO, ERUR #### [facility] [address] [place] [address] Dr. Alfredo Lizama Basophils/100 WBC (Bld) 0.8 % Normal 0.2-2.0 [facility] Comment on above: Performed By: #### U MICRO, ERUR #### [facility] [address] [place] [address] Dr. Alfredo Lizama EO # 0.2 103/ul Normal 0.0-0.7 [facility] Comment on above: Performed By: #### U MICRO, ERUR #### [facility] [address] [place] [address] Dr. Alfredo Lizama Eosinophils/100 WBC (Bld) 2.5 % Normal 0.9-7.0 [facility] Comment on above: Performed By: #### U MICRO, ERUR #### [facility] [address] [place] [address] Dr. Alfredo Lizama Erythrocyte distribution width (RBC) [Ratio] 12.7 % Normal 11.0-15.0 [facility] Comment on above: Performed By: #### U MICRO, ERUR #### [facility] [address] [place] [address] Dr. Alfredo Lizama Hematocrit (Bld) [Volume fraction] 46.3 % Normal 36.0-48.0 [facility] Comment on above: Performed By: #### U MICRO, ERUR #### [facility] [address] [place] [address] Dr. Alfredo Lizama Hemoglobin (Bld) [Mass/Vol] 15.9 g/dL Normal 12.0-16.0 [facility] Comment on above: Performed By: #### U MICRO, ERUR #### [facility] [address] [place] [address] Dr. Alfredo Lizama IG # 0.02 10e3/ul Normal 0.00-0.03 [facility] Comment on above: Performed By: #### U MICRO, ERUR #### [facility] [address] [place] [address] Dr. Alfredo Lizama IG % 0.2 % Normal 0.0-0.5 [facility] Comment on above: Performed By: #### U MICRO, ERUR #### [facility] [address] [place] [address] Dr. Alfredo Lizaam LYMPH # 2.6 103/ul Normal 1.2-3.8 [facility] Comment on above: Performed By: #### U MICRO, ERUR #### [facility] [address] [place] [address] Dr. Alfredo Lizama Lymphocytes/100 WBC (Bld) 31.3 % Normal 20.5-60.0 [facility] Comment on above: Performed By: #### U MICRO, ERUR #### [facility] [address] [place] [address] Dr. Alfredo Lizama MANUAL DIFF REQ NO Normal [facility] Comment on above: Performed By: #### U MICRO, ERUR #### [facility] [address] [place] [address] Dr. Alfredo Lizama MCH (RBC) [Entitic mass] 29.3 pg Normal 26.7-34.0 [facility] Comment on above: Performed By: #### U MICRO, ERUR #### [facility] [address] [place] [address] Dr. Alfredo Lizama MCHC (RBC) [Mass/Vol] 34.3 g/dL Normal 29.9-35.2 [facility] Comment on above: Performed By: #### U MICRO, ERUR #### [facility] [address] [address] [address] Alfredo Lizama MCV (RBC) [Entitic vol] 85.4 fL Normal 81.0-99.0 [facility] Comment on above: Performed By: #### U MICRO, ERUR #### [facility] [address] [place] [address] Dr. Alfredo Lizama MONO # 0.6 103/ul Normal 0.3-0.8 [facility] Comment on above: Performed By: #### U MICRO, ERUR #### [facility] [address] [place] [address] Dr. Alfredo Lizama Monocytes/100 WBC (Bld) 6.6 % Normal 1.7-12.0 [facility] Comment on above: Performed By: #### U MICRO, ERUR #### [facility] [address] [place] [address] Dr. Alfredo Lizama NEUT # 4.9 103/ul Normal 1.4-6.5 [facility] Comment on above: Performed By: #### U MICRO, ERUR #### [facility] [address] [place] [address] Dr. Alfredo Lizama Neutrophils/100 WBC (Bld) 58.6 % Normal 43.0-75.0 [facility] Comment on above: Performed By: #### U MICRO, ERUR #### [facility] [address] [place] [address] Dr. Alfredo Lizama Platelet mean volume (Bld) [Entitic vol] 9.5 fL Normal 9.5-13.5 [facility] Comment on above: Performed By: #### U MICRO, ERUR #### [facility] [address] [place] [address] Dr. Alfredo Lizama PLT 273 103/ul Normal 150-450 [facility] Comment on above: Performed By: #### U MICRO, ERUR #### [facility] [address] [place] [address] Dr. Alfredo Lizama RBC 5.42 106/ul Critically high 4.20-5.40 [facility] Comment on above: Performed By: #### U MICRO, ERUR #### [facility] [address] [place] [address] Dr. Alfredo Lizama WBC 8.4 103/ul Normal 4.0-11.0 [facility] Comment on above: Performed By: #### U MICRO, ERUR #### [facility] [address] [place] [address] Dr. Alfredo Lizama CULTURE URINEon 11-09-2022 CULTURE URINE Culture Observations : MODERATE GROWTH OF MIXED GENITAL ROSANNA. NO POTENTIAL PATHOGENS SEEN. Normal [facility] Comment on above: Performed By: #### U MICRO, ERUR #### [facility] [address] [place] [address] Dr. Alfredo Lizama ER URINE PROFILEon 3 Bilirubin Ql (U) Negative Normal NEGATIVE [facility] Comment on above: Performed By: #### U MICRO, ERUR #### [facility] [address] [place] [address] Dr. Alfredo Lizama Clarity (U) CLEAR Normal CLEAR [facility] Comment on above: Performed By: #### U MICRO, ERUR #### [facility] [address] [place] [address] Dr. Alfredo Lizama Color (U) LT. YELLOW Normal YELLOW [facility] Comment on above: Performed By: #### U MICRO, ERUR #### [facility] [address] [place] [address] Dr. Alfredo Lizama ERUAHD A micrscopic examina tion will be performed if indicated. Normal [facility] Comment on above: Performed By: #### U MICRO, ERUR #### [facility] [address] [place] [address] Dr. Alfredo Lizama Glucose Ql (U) Negative Normal NEGATIVE [facility] Comment on above: Performed By: #### U MICRO, ERUR #### [facility] [address] [place] [address] Dr. Alfredo Lizama Hemoglobin Ql (U) MODERATE Abnormal NEGATIVE [facility] Comment on above: Performed By: #### U MICRO, ERUR #### [facility] [address] [place] [address] Dr. Alfredo Lizama Ketones Ql (U) Negative Normal NEGATIVE [facility] Comment on above: Performed By: #### U MICRO, ERUR #### [facility] [address] [place] [address] Dr. Alfredo Lizama LEUKOCYTES LARGE Abnormal NEGATIVE [facility] Comment on above: Performed By: #### U MICRO, ERUR #### [facility] [address] [address] [address] Alfredo Lizama Nitrite Ql (U) Negative Normal NEGATIVE [facility] Comment on above: Performed By: #### U MICRO, ERUR #### [facility] [address] [place] [address] Dr. Alfredo Lizama pH (U) 7.0 [pH] Normal 5-9 [facility] Comment on above: Performed By: #### U MICRO, ERUR #### [facility] [address] [place] [address] Dr. Alfredo Lizama SPEC GRAVITY 1.015 Normal 1.005-<=1. 025 [facility] Comment on above: Performed By: #### U MICRO, ERUR #### [facility] [address] [place] [address] Dr. Alfredo Lizama UA PROTEIN Negative Normal NEGATIVE/ TRACE [facility] Comment on above: Performed By: #### U MICRO, ERUR #### [facility] [address] [place] [address] Dr. Alfredo Lizama UR MICRO IND INDICATED Normal [facility] Comment on above: Performed By: #### U MICRO, ERUR #### [facility] [address] [place] [address] Dr. Alfredo Lizama Urobilinogen Qn (U) 0.2 {Tesha'U}/dL Normal 0.2 - 1. 0 [facility] Comment on above: Performed By: #### U MICRO, ERUR #### [facility] [address] [place] [address] Dr. Alfredo Lizama LIPASEon 11-09-2022 Lipase [Catalytic activity/Vol] 34.0 U/L Critically low 73.0-393.0 [facility] Comment on above: Performed By: #### U MICRO, ERUR #### [facility] [address] [place] [address] Dr. Alfredo Lizama PROF 14(COMP METB)on 023 Albumin [Mass/Vol] 4.0 g/dL Normal 3.4-5.0 [facility] Comment on above: Performed By: #### U MICRO, ERUR #### [facility] [address] [place] [address] Dr. Alfredo Lizama Albumin/Globulin [Mass ratio] 1.0 {ratio} Normal [facility] Comment on above: Performed By: #### U MICRO, ERUR #### [facility] [address] [place] [address] Dr. Alfredo Lizama ALP [Catalytic activity/Vol] 206 U/L Critically high 46-116 [facility] Comment on above: Performed By: #### U MICRO, ERUR #### [facility] [address] [place] [address] Dr. Alfredo Lizama ALT [Catalytic activity/Vol] 53 U/L Normal 14-59 [facility] Comment on above: Performed By: #### U MICRO, ERUR #### [facility] [address] [place] [address] Dr. Alfredo Lizama Anion gap [Moles/Vol] 14.5 mmol/L Normal [facility] Comment on above: Performed By: #### U MICRO, ERUR #### [facility] [address] [place] [address] Dr. Alfredo Lizama AST [Catalytic activity/Vol] 55 U/L Critically high 15-37 [facility] Comment on above: Performed By: #### U MICRO, ERUR #### [facility] [address] [place] [address] Dr. Alfredo Lizama Bilirubin [Mass/Vol] 0.7 mg/dL Normal 0.2-1.0 [facility] Comment on above: Performed By: #### U MICRO, ERUR #### [facility] [address] [address] [address] Alfredo Lizama Calcium [Mass/Vol] 9.0 mg/dL Normal 8.5-10.1 [facility] Comment on above: Performed By: #### U MICRO, ERUR #### [facility] [address] [address] [address] Alfredo iLzama Chloride [Moles/Vol] 100 mmol/L Normal 98-107 [facility] Comment on above: Performed By: #### U MICRO, ERUR #### [facility] [address] [place] [address] Dr. Alfredo Lizama CO2 [Moles/Vol] 28.3 mmol/L Normal 21.0-32.0 [facility] Comment on above: Performed By: #### U MICRO, ERUR #### [facility] [address] [place] [address] Dr. Alfredo Lizama Creatinine [Mass/Vol] 0.65 mg/dL Normal 0.55-1.02 [facility] Comment on above: Performed By: #### U MICRO, ERUR #### [facility] [address] [place] [address] Dr. Alfredo Lizama EGFR-AF BELGIAN >60 Normal >=60 [facility] Comment on above: Performed By: #### U MICRO, ERUR #### [facility] [address] [place] [address] Dr. Alfredo Lizama EGFR-NON AF BELGIAN >60 Normal >=60 [facility] Comment on above: Performed By: #### U MICRO, ERUR #### [facility] [address] [address] [address] Alfredo Lizama Globulin (S) [Mass/Vol] 3.9 g/dL Normal [facility] Comment on above: Performed By: #### U MICRO, ERUR #### [facility] [address] [place] [address] Dr. Alfredo Lizama Glucose [Mass/Vol] 134 mg/dL Critically high 74-106 [facility] Comment on above: Performed By: #### U MICRO, ERUR #### [facility] [address] [place] [address] Dr. Alfredo Lizama Potassium [Moles/Vol] 3.8 mmol/L Normal 3.5-5.1 [facility] Comment on above: Performed By: #### U MICRO, ERUR #### [facility] [address] [place] [address] Dr. Alfredo Lizama Protein [Mass/Vol] 7.9 g/dL Normal 6.4-8.2 [facility] Comment on above: Performed By: #### U MICRO, ERUR #### [facility] [address] [place] [address] Dr. Alfredo Lizama Sodium [Moles/Vol] 139 mmol/L Normal 136-145 [facility] Comment on above: Performed By: #### U MICRO, ERUR #### [facility] [address] [place] [address] Dr. Alfredo Lizama Urea nitrogen [Mass/Vol] 7.0 mg/dL Normal 7.0-18.0 [facility] Comment on above: Performed By: #### U MICRO, ERUR #### [facility] [address] [place] [address] Dr. Alfredo Lizama Urea nitrogen/Creatinine [Mass ratio] 10.7 mg/mg Normal [facility] Comment on above: Performed By: #### U MICRO, ERUR #### [facility] [address] [place] [address] Dr. Alfredo Lizama URINE MICROSCOPIC ONLYon BACTERIA TRACE Abnormal NONE SEEN [facility] Comment on above: Performed By: #### U MICRO, ERUR #### [facility] [address] [place] [address] Dr. Alfredo Lizama Bacteria identified Cx Nom (U) INDICATED Normal [facility] Comment on above: Performed By: #### U MICRO, ERUR #### [facility] [address] [place] [address] Dr. Alfredo Lizama CAST NONE SEEN Normal NONE SEEN [facility] Comment on above: Performed By: #### U MICRO, ERUR #### [facility] [address] [place] [address] Dr. Alfredo Lizama Crystals LM Nom (Urine sed) NONE SEEN Normal NONE SEEN [facility] Comment on above: Performed By: #### U MICRO, ERUR #### [facility] [address] [place] [address] Dr. Alfredo Lizama Epithelial cells LM Ql (Urine sed) FEW Abnormal NONE SEEN /RARE [facility] Comment on above: Performed By: #### U MICRO, ERUR #### [facility] [address] [place] [address] Dr. Alfredo Lizama MUCOUS NONE SEEN Normal NONE SEEN [facility] Comment on above: Performed By: #### U MICRO, ERUR #### [facility] [address] [place] [address] Dr. Alfredo Lizama RBC 20-50 Abnormal 0-2 [facility] Comment on above: Performed By: #### U MICRO, ERUR #### [facility] [address] [place] [address] Dr. Alfredo Lizama WBC 20-50 Abnormal NONE SEEN [facility] Comment on above: Performed By: #### U MICRO, ERUR #### [facility] [address] [place] [address] Dr. Alfredo Lizama XR ABD FLAT_UPon 11-09-2022 [...] ENRIQUE LOWE Date: 2022-11-09 11:06 Normal [facility] CULTURE URINEon 10-18-2022 CULTURE URINE Isolate [...] Trimethoprim/Sulfamethoxa zole <=10 S F Normal [facility] Comment on above: Performed By: #### U MICRO, ERUR #### [facility] [address] [place] [address] Dr. Alfredo Lizama ER URINE PROFILEon 3 Bilirubin Ql (U) Negative Normal NEGATIVE [facility] Comment on above: Performed By: #### LINDA CHAVES #### [facility] [address] [place] [address] Dr. Alfredo Lizama Clarity (U) CLEAR Normal CLEAR [facility] Comment on above: Performed By: #### CHINMAY CHAVESRO #### [facility] [address] [place] [address] Dr. Alfredo Lizama Color (U) YELLOW Normal YELLOW [facility] Comment on above: Performed By: #### FER CHAVESICRO #### [facility] [address] [place] [address] Dr. Alfredo RAYMUNDO A micrscopic examina tion will be performed if indicated. Normal [facility] Comment on above: Performed By: #### Jacque ESTRADA UMICRO #### [facility] [address] [place] [address] Dr. Alfredo Lizama Glucose Ql (U) Negative Normal NEGATIVE [facility] Comment on above: Performed By: #### Jacque ESTRADA UMICRO #### [facility] [address] [place] [address] Dr. Alfredo Lizama Hemoglobin Ql (U) LARGE Abnormal NEGATIVE [facility] Comment on above: Performed By: #### Jacque ESTRADA UMICRO #### [facility] [address] [place] [address] Dr. Alfredo Lizama Ketones Ql (U) Negative Normal NEGATIVE [facility] Comment on above: Performed By: #### Jacque ESTRADA UMICRO #### [facility] [address] [place] [address] Dr. Alfredo Lizama LEUKOCYTES LARGE Abnormal NEGATIVE [facility] Comment on above: Performed By: #### Jacque ESTRADA UMICRO #### [facility] [address] [place] [address] Dr. Alfredo Lizama Nitrite Ql (U) Positive Abnormal NEGATIVE [facility] Comment on above: Performed By: #### Jacque ESTRADA UMICRO #### [facility] [address] [place] [address] Dr. Alfredo Lizama pH (U) 6.5 [pH] Normal 5-9 [facility] Comment on above: Performed By: #### FER CHAVESICRO #### [facility] [address] [place] [address] Dr. Alfredo Lizama Protein (U) [Mass/Vol] 100 mg/dL Abnormal NEGAT LATISHA/ TRACE [facility] Comment on above: Performed By: #### Jacque ESTRADA UMICRO #### [facility] [address] [place] [address] Dr. Alfredo Lizama SPEC GRAVITY 1.010 Normal 1.005-<=1. 025 [facility] Comment on above: Performed By: #### CHINMAY CHAVESRO #### [facility] [address] [place] [address] Dr. Alfredo Lizama UR MICRO IND INDICATED Normal [facility] Comment on above: Performed By: #### FER CHAVESICRO #### [facility] [address] [place] [address] Dr. Alfredo Lizama Urobilinogen Qn (U) 1.0 {Tesha'U}/dL Normal 0.2 - 1. 0 [facility] Comment on above: Performed By: #### E RURLINDA #### [facility] [address] [place] [address] Dr. Alfredo Lizama URINE MICROSCOPIC ONLYon BACTERIA MODERATE Abnormal NONE SEEN [facility] Comment on above: Performed By: #### U MICRO, ERUR #### [facility] [address] [place] [address] Dr. Alfredo Lizama Bacteria identified Cx Nom (U) INDICATED Normal [facility] Comment on above: Performed By: #### U MICRO, ERUR #### [facility] [address] [place] [address] Dr. Alfredo Lizama CA OX CRYSTALS RARE Normal [facility] Comment on above: Performed By: #### U MICRO, ERUR #### [facility] [address] [place] [address] Dr. Alfredo Lizama CAST NONE SEEN Normal NONE SEEN [facility] Comment on above: Performed By: #### U MICRO, ERUR #### [facility] [address] [place] [address] Dr. Alfredo Lizama Crystals LM Nom (Urine sed) SEEN Abnormal NONE SEEN [facility] Comment on above: Performed By: #### U MICRO, ERUR #### [facility] [address] [place] [address] Dr. Alfredo Lizama Epithelial cells LM Ql (Urine sed) MODERATE Abnormal NONE SEEN /RARE [facility] Comment on above: Performed By: #### U MICRO, ERUR #### [facility] [address] [place] [address] Dr. Alfredo Lizama MUCOUS TRACE Abnormal NONE SEEN [facility] Comment on above: Performed By: #### U MICRO, ERUR #### [facility] [address] [place] [address] Dr. Alfredo Lizama RBC 20-50 Abnormal 0-2 [facility] Comment on above: Performed By: #### U MICRO, ERUR #### [facility] [address] [place] [address] Dr. Alfredo Lizama WBC 50-75 Abnormal NONE SEEN [facility] Comment on above: Performed By: #### U MICRO, ERUR #### [facility] [address] [place] [address] Dr. Alfredo Lizama Covid-19 PCR ([facility])on 08-06 SARS-CoV-2 (COVID-19) RNA ADRIÁN+probe Ql (Unsp spec) Not detected Normal NOT DETECTED [facility] Comment on above: Result Comment: When [...] for this test is supported by the [employer] and Human Service's declaration that [...] Performed By: #### U MICRO, ERUR #### [facility] [address] [place] [address] Dr. Alfredo Lizama CBC AUTO DIFFon 08-24-2022 BASO # 0.1 103/ul Normal 0.0-0.1 [facility] Comment on above: Performed By: #### C BC #### [facility] [address] [place] [address] Dr. Alfredo Lizama Basophils/100 WBC (Bld) 0.8 % Normal 0.2-2.0 [facility] Comment on above: Performed By: #### C BC #### [facility] [address] [place] [address] Dr. Alfredo Lizama EO # 0.3 103/ul Normal 0.0-0.7 [facility] Comment on above: Performed By: #### C BC #### [facility] [address] [place] [address] Dr. Alfredo Lizama Eosinophils/100 WBC (Bld) 3.1 % Normal 0.9-7.0 [facility] Comment on above: Performed By: #### C BC #### [facility] [address] [place] [address] Dr. Alfredo Lizama Erythrocyte distribution width (RBC) [Ratio] 13.4 % Normal 11.0-15.0 [facility] Comment on above: Performed By: #### C BC #### [facility] [facility] [address] [place] [address] Dr. Alfredo Lizama Hematocrit (Bld) [Volume fraction] 47.2 % Normal 36.0-48.0 [facility] Comment on above: Performed By: #### C BC #### [facility] [address] [place] [address] Dr. Alfredo Lizama Hemoglobin (Bld) [Mass/Vol] 15.6 g/dL Normal 12.0-16.0 [facility] Comment on above: Performed By: #### C BC #### [facility] [address] [place] [address] Dr. Alfredo Lizama IG # 0.02 10e3/ul Normal 0.00-0.03 [facility] Comment on above: Performed By: #### C BC #### [facility] [address] [place] [address] Dr. Alfredo Lizama IG % 0.2 % Normal 0.0-0.5 [facility] Comment on above: Performed By: #### C BC #### [facility] [address] [place] [address] Dr. Alfredo Lizama LYMPH # 4.4 103/ul Critically high 1.2-3.8 [facility] Comment on above: Performed By: #### C BC #### [facility] [address] [place] [address] Dr. Alfredo Lizama Lymphocytes/100 WBC (Bld) 42.3 % Normal 20.5-60.0 [facility] Comment on above: Performed By: #### C BC #### [facility] [address] [place] [address] Dr. Alfredo Lizama MANUAL DIFF REQ NO Normal [facility] Comment on above: Performed By: #### C BC #### [facility] [address] [place] [address] Dr. Alfredo Lizama MCH (RBC) [Entitic mass] 28.8 pg Normal 26.7-34.0 [facility] Comment on above: Performed By: #### C BC #### [facility] [address] [place] [address] Dr. Alfredo Lizama MCHC (RBC) [Mass/Vol] 33.1 g/dL Normal 29.9-35.2 [facility] Comment on above: Performed By: #### C BC #### [facility] [address] [place] [address] Dr. Alfredo Lizama MCV (RBC) [Entitic vol] 87.2 fL Normal 81.0-99.0 [facility] Comment on above: Performed By: #### C BC #### [facility] [address] [place] [address] Dr. Alfredo Lizama MONO # 0.6 103/ul Normal 0.3-0.8 [facility] Comment on above: Performed By: #### C BC #### [facility] [address] [place] [address] Dr. Alfredo Lizama Monocytes/100 WBC (Bld) 5.3 % Normal 1.7-12.0 [facility] Comment on above: Performed By: #### C BC #### [facility] [address] [place] [address] Dr. Alfredo Lizama NEUT # 5.0 103/ul Normal 1.4-6.5 [facility] Comment on above: Performed By: #### C BC #### [facility] [address] [place] [address] Dr. Alfredo Lizama Neutrophils/100 WBC (Bld) 48.3 % Normal 43.0-75.0 [facility] Comment on above: Performed By: #### C BC #### [facility] [address] [address] [address] Alfredo Lizama Platelet mean volume (Bld) [Entitic vol] 9.9 fL Normal 9.5-13.5 [facility] Comment on above: Performed By: #### C BC #### [facility] [address] [place] [address] Dr. Alfredo Lizama PLT 298 103/ul Normal 150-450 [facility] Comment on above: Performed By: #### C BC #### [facility] [address] [address] [address] Alfredo Lizama RBC 5.41 106/ul Critically high 4.20-5.40 [facility] Comment on above: Performed By: #### C BC #### [facility] [address] [place] [address] Dr. Alfredo Lizama WBC 10.3 103/ul Normal 4.0-11.0 [facility] Comment on above: Performed By: #### C BC #### [facility] [address] [place] [address] Dr. Alfredo Lizama PROF CHEM 8 (BAS METB)on Anion gap [Moles/Vol] 14.3 mmol/L Normal [facility] Comment on above: Performed By: #### U MICRO, ERUR #### [facility] [address] [place] [address] Dr. Alfredo Lizama Calcium [Mass/Vol] 9.1 mg/dL Normal 8.5-10.1 [facility] Comment on above: Performed By: #### U MICRO, ERUR #### [facility] [address] [place] [address] Dr. Alfredo Lizama Chloride [Moles/Vol] 99 mmol/L Normal 98-107 [facility] Comment on above: Performed By: #### U MICRO, ERUR #### [facility] [address] [place] [address] Dr. Alfredo Lizama CO2 [Moles/Vol] 29.0 mmol/L Normal 21.0-32.0 [facility] Comment on above: Performed By: #### U MICRO, ERUR #### [facility] [address] [place] [address] Dr. Alfredo Lizama Creatinine [Mass/Vol] 0.70 mg/dL Normal 0.55-1.02 [facility] Comment on above: Performed By: #### U MICRO, ERUR #### [facility] [address] [address] [address] Alfredo Lizama EGFR-AF BELGIAN >60 Normal >=60 [facility] Comment on above: Performed By: #### U MICRO, ERUR #### [facility] [address] [place] [address] Dr. Alfredo Lizama EGFR-NON AF BELGIAN >60 Normal >=60 [facility] Comment on above: Performed By: #### U MICRO, ERUR #### [facility] [address] [place] [address] Dr. Alfredo Lizama Glucose [Mass/Vol] 121 mg/dL Critically high 74-106 [facility] Comment on above: Performed By: #### U MICRO, ERUR #### [facility] [address] [address] [address] Alfredo Lizama Potassium [Moles/Vol] 3.3 mmol/L Critically low 3.5-5.1 [facility] Comment on above: Performed By: #### U MICRO, ERUR #### [facility] [address] [place] [address] Dr. Alfredo Lizama Sodium [Moles/Vol] 139 mmol/L Normal 136-145 [facility] Comment on above: Performed By: #### U MICRO, ERUR #### [facility] [address] [address] [address] Alfredo Lizama Urea nitrogen [Mass/Vol] 5.0 mg/dL Critically low 7.0-18. 0 [facility] Comment on above: Performed By: #### U MICRO, ERUR #### [facility] [address] [address] [address] Alfredo Lizama Urea nitrogen/Creatinine [Mass ratio] 7.1 mg/mg Normal [facility] Comment on above: Performed By: #### U MICRO, ERUR #### [facility] [address] [place] [address] Dr. Alfredo Lizama PROTIMEon 08-24-2022 INR Coag (PPP) [Relative time] 0.99 {INR} Normal [facility] Comment on above: Performed By: #### P T, PTT #### [facility] [address] [place] [address] Dr. Alfredo Lizama INR GUIDELINES SEE BELOW Normal [facility] Comment on above: Result Comment: MARY JO RED INR: 2.0 - 3.0 CONDITIONS NOT LISTED BELOW 2.5 - 3.5 FOR PROSTHETIC HEART VALVE REPLACEMENT 2.5 - 3.5 RECURRENT THROMBOSIS Performed By: #### P T, PTT #### [facility] [address] [place] [address] Dr. Alfredo Lizama PT Coag (PPP) [Time] 10.7 s Normal 9.0-11.6 [facility] Comment on above: Performed By: #### P T, PTT #### [facility] [address] [place] [address] Dr. Alfredo Lizama PTTon 08-24-2022 aPTT Coag (Bld) [Time] 31.7 s Normal 22.3-36.2 [facility] Comment on above: Performed By: #### P T, PTT #### [facility] [address] [place] [address] Dr. Alfredo Lizama BN SACRUM/COCCYX, MIN 2 [...] 09/20/2019. Thoracolumbar spine radiographs 09/08/2021. ACCESSION NUMBER(S): [id number]; [id number]; [id number] ORDERING CLINICIAN: CANDICE PEREZ FINDINGS: Three views [...] stated. Electronically signed by: GOMEZ JAMA MD [facility] BN SPINE, LUMBOSACRAL; 2 OR [...] 09/20/2019. Thoracolumbar spine radiographs 09/08/2021. ACCESSION NUMBER(S): [id number]; [id number]; [id number] ORDERING CLINICIAN: CANDICE PEREZ FINDINGS: Three views [...] stated. Electronically signed by: GOMEZ JAMA MD [facility] BN SPINE, THORACIC, 3 VIEWSo [...] 09/20/2019. Thoracolumbar spine radiographs 09/08/2021. ACCESSION NUMBER(S): [id number]; [id number]; [id number] ORDERING CLINICIAN: CANDICE HEERSINK FINDINGS: Three views [...] Electronically signed by: GOMEZ JAMA MD Normal [facility] CBC AND DIFFERENTIALon 06-07 % AUTOMATED IMMATURE GRAN 0.2 % Normal 0.0 - 0.9 [facility] Comment on above: Result Comment: Jaleesa ture Granulocyte Count (IG) includes promyelocytes, myelocytes and metamyelocytes but does not include bands. Percent differential counts (%) should be interpreted in the context of the absolute cell counts (cells/L). Performed By: #### R ENAL #### [facility] [address] [place] [address] Basophils (Bld) [#/Vol] 0.09 10*3/uL Normal 0.00 - 0.10 [facility] Comment on above: Performed By: #### R ENAL #### [facility] [address] [place] [address] Basophils/100 WBC (Bld) 1.0 % Normal 0.0 - 2.0 [facility] Comment on above: Performed By: #### R ENAL #### [facility] [address] [place] [address] Eosinophils (Bld) [#/Vol] 0.24 10*3/uL Normal 0.00 - 0.70 [facility] Comment on above: Performed By: #### R ENAL #### [facility] [address] [place] [address] Eosinophils/100 WBC (Bld) 2.6 % Normal 0.0 - 6.0 [facility] Comment on above: Performed By: #### R ENAL #### [facility] [address] [place] [address] Erythrocyte distribution width (RBC) [Ratio] 12.9 % Normal 11.5 - 14.5 [facility] Comment on above: Performed By: #### R ENAL #### [facility] [address] [place] [address] Hematocrit (Bld) [Volume fraction] 48.4 % High 36.0 - 46.0 [facility] Comment on above: Performed By: #### R ENAL #### [facility] [address] [place] [address] Hemoglobin (Bld) [Mass/Vol] 17.1 g/dL High 12.0 - 16.0 [facility] Comment on above: Performed By: #### R ENAL #### [facility] [address] [place] [address] Lymphocytes (Bld) [#/Vol] 2.93 10*3/uL Normal 1.20 - 4.80 [facility] Comment on above: Performed By: #### R ENAL #### [facility] [address] [place] [address] Lymphocytes/100 WBC (Bld) 31.9 % Normal 13.0 - 44.0 [facility] Comment on above: Performed By: #### R ENAL #### [facility] [address] [place] [address] MCHC (RBC) [Mass/Vol] 35.3 g/dL Normal 32.0 - 36.0 [facility] Comment on above: Performed By: #### R ENAL #### [facility] [address] [place] [address] MCV (RBC) [Entitic vol] 85 fL Normal 80 - 100 [facility] Comment on above: Performed By: #### R ENAL #### [facility] [address] [place] [address] Monocytes (Bld) [#/Vol] 0.36 10*3/uL Normal 0.10 - 1.00 [facility] Comment on above: Performed By: #### R ENAL #### [facility] [address] [place] [address] Monocytes/100 WBC (Bld) 3.9 % Normal 2.0 - 10.0 [facility] Comment on above: Performed By: #### R ENAL #### [facility] [address] [place] [address] Neutrophils (Bld) [#/Vol] 5.54 10*3/uL Normal 1.20 - 7.70 [facility] Comment on above: Performed By: #### R ENAL #### [facility] [address] [place] [address] Neutrophils/100 WBC (Bld) 60.4 % Normal 40.0 - 80.0 [facility] Comment on above: Performed By: #### R ENAL #### [facility] [address] [place] [address] NUCLEATED RBC 0.0 /100 WBC Normal 0.0-0.0 [facility] Comment on above: Performed By: #### R ENAL #### [facility] [address] [place] [address] Platelets (Bld) [#/Vol] 365 10*3/uL Normal 150 - 450 [facility] Comment on above: Performed By: #### R ENAL #### [facility] [address] [place] [address] RBC 5.69 x10E12/L High 4.00 - 5.20 [facility] Comment on above: Performed By: #### R ENAL #### [facility] [address] [place] [address] WBC (Bld) [#/Vol] 9.2 10*3/uL Normal 4.4 - 11.3 [facility] Comment on above: Performed By: #### R ENAL #### [facility] [address] [place] [address] COMPREHENSIVE PANELon 2021 Albumin [Mass/Vol] 4.6 g/dL Normal 3.4 - 5.0 [facility] Comment on above: Performed By: #### R ENAL #### [facility] [address] [place] [address] ALP [Catalytic activity/Vol] 192 U/L High 33 - 110 [facility] Comment on above: Performed By: #### R ENAL #### [facility] [address] [place] [address] ALT [Catalytic activity/Vol] 33 U/L Normal 7 - 45 [facility] Comment on above: Result Comment: Melly ents treated with Sulfasalazine may generate falsely decreased results for ALT. Performed By: #### R ENAL #### [facility] [address] [place] [address] Anion gap [Moles/Vol] 16 mmol/L Normal 10 - 20 [facility] Comment on above: Performed By: #### R ENAL #### [facility] [address] [place] [address] AST [Catalytic activity/Vol] 51 U/L High 9 - 39 [facility] Comment on above: Performed By: #### R ENAL #### [facility] [address] [place] [address] Bilirubin [Mass/Vol] 0.5 mg/dL Normal 0.0 - 1.2 [facility] Comment on above: Performed By: #### R ENAL #### [facility] [address] [place] [address] Calcium [Mass/Vol] 10.3 mg/dL Normal 8.6 - 10.6 [facility] Comment on above: Performed By: #### R ENAL #### [facility] [address] [place] [address] Chloride [Moles/Vol] 101 mmol/L Normal 98 - 107 [facility] Comment on above: Performed By: #### R ENAL #### [facility] [address] [place] [address] Creatinine [Mass/Vol] 0.61 mg/dL Normal 0.50 - 1.05 [facility] Comment on above: Performed By: #### R ENAL #### [facility] [address] [place] [address] eGFR FEMALE >90 Normal >90 [facility] Comment on above: Result Comment: CALC ULATIONS OF ESTIMATED GFR ARE PERFORMED USING THE 2020 CKD-EPI STUDY REFIT EQUATION WITHOUT THE RACE VARIABLE FOR THE IDMS-TRACEABLE CREATININE METHODS. https://jasn.asnjournals.org/content/early/ASN.382 0436825 Performed By: #### R ENAL #### [facility] [address] [place] [address] Glucose [Mass/Vol] 100 mg/dL High 74 - 99 [facility] Comment on above: Performed By: #### R ENAL #### [facility] [address] [place] [address] HCO3 (Bld) [Moles/Vol] 27 mmol/L Normal 21 - 32 [facility] Comment on above: Performed By: #### R ENAL #### [facility] [address] [place] [address] Potassium [Moles/Vol] 3.8 mmol/L Normal 3.5 - 5.3 [facility] Comment on above: Performed By: #### R ENAL #### [facility] [address] [place] [address] Protein [Mass/Vol] 8.2 g/dL Normal 6.4 - 8.2 [facility] Comment on above: Performed By: #### R ENAL #### [facility] [address] [place] [address] Sodium [Moles/Vol] 140 mmol/L Normal 136 - 145 [facility] Comment on above: Performed By: #### R ENAL #### [facility] [address] [place] [address] Urea nitrogen [Mass/Vol] 5 mg/dL Low 6 - 23 [facility] Comment on above: Performed By: #### R ENAL #### [facility] [address] [place] [address] Consult - Neuro-Surgeryon Consult - Neuro-Surgery Service: [...] Updated: 07-Jun-2022 11:22 by Perez Carlisle) Normal [facility] NR CT L-SPINE WO CONTRASTon 06-07-[address] L-SPINE WO CONTRAST Patient Name: MORALES LEE STUDY: CT T-SPINE WO CONTRAST; CT L-SPINE WO CONTRAST 06/06/2022 11:03 pm INDICATION: ok, Lie Flat: Yes COMPARISON: 09/20/2021 MRI and 09/18/2021 CT ACCESSION NUMBER(S): [id number]; [id number] ORDERING CLINICIAN: CANDICE PEREZ TECHNIQUE: Axial CT [...] osseous spinal canal or neural foraminal stenosis. [id number] spinal canal and neural foraminal narrowing described [...] Electronically signed by: CELI MCNEIL DO Normal [facility] NR CT T-SPINE WO CONTRASTon 06-07-[address] T-SPINE WO CONTRAST Patient Name: MORALES LEE STUDY: CT T-SPINE WO CONTRAST; CT L-SPINE WO CONTRAST 06/06/2022 11:03 pm INDICATION: ok, Lie Flat: Yes COMPARISON: 09/20/2021 MRI and 09/18/2021 CT ACCESSION NUMBER(S): [id number]; [id number] ORDERING CLINICIAN: CANDICE PEREZ TECHNIQUE: Axial CT [...] osseous spinal canal or neural foraminal stenosis. Evhf-[id number] spinal canal and neural foraminal narrowing described [...] view. Electronically signed by: DO Andrei TOURE [facility] Provider Note - ED Care [...] 21-Jun-2022 06:18 by Yony Aguirre () Normal [facility] Provider Note - ED v3on [...] - M21.37 (more content not included)... Normal [facility] Triage - EDon 06-06-2022 Triage [...] obeys commands Best Verbal Response: (V5) oriented Ryder Score: 15 Mask applied: yes Patient has [...] 06-Jun-2022 19:07 by Meghan Chavez (MERA) Normal [facility] CULTURE URINEon 05-10-2022 CULTURE URINE [...] Performed By: #### U MICRO, ERUR #### [facility] [address] [place] [address] Dr. Alfredo Lizama CBC AUTO DIFFon 05-07-2022 BASO # 0.1 103/ul Normal 0.0-0.1 [facility] Comment on above: Performed By: #### U MICRO, ERUR #### [facility] [address] [place] [address] Dr. Alfredo Lizama Basophils/100 WBC (Bld) 0.5 % Normal 0.2-2.0 [facility] Comment on above: Performed By: #### U MICRO, ERUR #### [facility] [address] [place] [address] Dr. Alfredo Lizama EO # 0.4 103/ul Normal 0.0-0.7 [facility] Comment on above: Performed By: #### U MICRO, ERUR #### [facility] [address] [place] [address] Dr. Alfredo Lizama Eosinophils/100 WBC (Bld) 3.5 % Normal 0.9-7.0 [facility] Comment on above: Performed By: #### U MICRO, ERUR #### [facility] [address] [place] [address] Dr. Alfredo Lizama Erythrocyte distribution width (RBC) [Ratio] 13.2 % Normal 11.0-15.0 [facility] Comment on above: Performed By: #### U MICRO, ERUR #### [facility] [address] [place] [address] Dr. Alfredo Lizama Hematocrit (Bld) [Volume fraction] 44.0 % Normal 36.0-48.0 [facility] Comment on above: Performed By: #### U MICRO, ERUR #### [facility] [address] [address] [address] Alfredo Lizama Hemoglobin (Bld) [Mass/Vol] 14.8 g/dL Normal 12.0-16.0 [facility] Comment on above: Performed By: #### U MICRO, ERUR #### [facility] [address] [place] [address] Dr. Alfredo Lizama IG # 0.03 10e3/ul Normal 0.00-0.03 [facility] Comment on above: Performed By: #### U MICRO, ERUR #### [facility] [address] [place] [address] Dr. Alfredo Lizama IG % 0.2 % Normal 0.0-0.5 [facility] Comment on above: Performed By: #### U MICRO, ERUR #### [facility] [address] [place] [address] Dr. Alfredo Lizama LYMPH # 3.8 103/ul Normal 1.2-3.8 [facility] Comment on above: Performed By: #### U MICRO, ERUR #### [facility] [address] [place] [address] Dr. Alfredo Lizama Lymphocytes/100 WBC (Bld) 31.3 % Normal 20.5-60.0 [facility] Comment on above: Performed By: #### U MICRO, ERUR #### [facility] [address] [place] [address] Dr. Alfredo Lizama MANUAL DIFF REQ NO Normal [facility] Comment on above: Performed By: #### U MICRO, ERUR #### [facility] [address] [place] [address] Dr. Alfredo Lizama MCH (RBC) [Entitic mass] 28.8 pg Normal 26.7-34.0 [facility] Comment on above: Performed By: #### U MICRO, ERUR #### [facility] [address] [place] [address] Dr. Alfredo Lizama MCHC (RBC) [Mass/Vol] 33.6 g/dL Normal 29.9-35.2 [facility] Comment on above: Performed By: #### U MICRO, ERUR #### [facility] [address] [place] [address] Dr. Alfredo Lizama MCV (RBC) [Entitic vol] 85.8 fL Normal 81.0-99.0 [facility] Comment on above: Performed By: #### U MICRO, ERUR #### [facility] [address] [place] [address] Dr. Alfredo Lizama MONO # 0.7 103/ul Normal 0.3-0.8 [facility] Comment on above: Performed By: #### U MICRO, ERUR #### [facility] [address] [place] [address] Dr. Alfredo Lizama Monocytes/100 WBC (Bld) 5.8 % Normal 1.7-12.0 [facility] Comment on above: Performed By: #### U MICRO, ERUR #### [facility] [address] [place] [address] Dr. Alfredo Lizama NEUT # 7.1 103/ul Critically high 1.4-6.5 [facility] Comment on above: Performed By: #### U MICRO, ERUR #### [facility] [address] [place] [address] Dr. Alfredo Lizama Neutrophils/100 WBC (Bld) 58.7 % Normal 43.0-75.0 [facility] Comment on above: Performed By: #### U MICRO, ERUR #### [facility] [address] [place] [address] Dr. Alfredo Lizama Platelet mean volume (Bld) [Entitic vol] 9.6 fL Normal 9.5-13.5 [facility] Comment on above: Performed By: #### U MICRO, ERUR #### [facility] [address] [place] [address] Dr. Alfredo Lizama PLT 269 103/ul Normal 150-450 [facility] Comment on above: Performed By: #### U MICRO, ERUR #### [facility] [address] [place] [address] Dr. Alfredo Lizama RBC 5.13 106/ul Normal 4.20-5.40 [facility] Comment on above: Performed By: #### U MICRO, ERUR #### [facility] [address] [place], [place] [address] Dr. Alfredo Lizama WBC 12.2 103/ul Critically high 4.0-11.0 [facility] Comment on above: Performed By: #### U MICRO, ERUR #### [facility] [address] [place], [place] [address] ABD/PELV W CONon [...] KORIN STANLEY Date: 2022-05-07 14:00 Normal [facility] ER URINE PROFILEon 2 Bilirubin Ql (U) Negative Normal NEGATIVE [facility] Comment on above: Performed By: #### U MICRO, ERUR #### [facility] [address] [place] [address] Dr. Alfredo Lizama Clarity (U) CLOUDY Abnormal CLEAR [facility] Comment on above: Performed By: #### U MICRO, ERUR #### [facility] [address] [place] [address] Dr. Alfredo Lizama Color (U) LT. YELLOW Normal YELLOW [facility] Comment on above: Performed By: #### U MICRO, ERUR #### [facility] [address] [place] [address] Dr. Alfredo Lizama ERUBYROND A micrscopic examina tion will be performed if indicated. Normal [facility] Comment on above: Performed By: #### U MICRO, ERUR #### [facility] [address] [place] [address] Dr. Alfredo Lizama Glucose Ql (U) Negative Normal NEGATIVE [facility] Comment on above: Performed By: #### U MICRO, ERUR #### [facility] [address] [place] [address] Dr. Alfredo Lizama Hemoglobin Ql (U) LARGE Abnormal NEGATIVE [facility] Comment on above: Performed By: #### U MICRO, ERUR #### [facility] [address] [place] [address] Dr. Alfredo Lizama Ketones Ql (U) Negative Normal NEGATIVE [facility] Comment on above: Performed By: #### U MICRO, ERUR #### [facility] [address] [place] [address] Dr. Alfredo Lizama LEUKOCYTES MODERATE Abnormal NEGATIVE [facility] Comment on above: Performed By: #### U MICRO, ERUR #### [facility] [address] [place] [address] [address] Alrfedo Lizama Nitrite Ql (U) Positive Abnormal NEGATIVE [facility] Comment on above: Performed By: #### U MICRO, ERUR #### [facility] [address] [place] [address] Dr. Alfredo Lizama pH (U) 8.5 [pH] Normal 5-9 [facility] Comment on above: Performed By: #### U MICRO, ERUR #### [facility] [address] [place] [address] Dr. Alfredo Lizama Protein (U) [Mass/Vol] 100 mg/dL Abnormal NEGAT LATISHA/ TRACE [facility] Comment on above: Performed By: #### U MICRO, ERUR #### [facility] [address] [place] [address] Dr. Alfredo Lizama SPEC GRAVITY 1.015 Normal 1.005-<=1. 025 [facility] Comment on above: Performed By: #### U MICRO, ERUR #### [facility] [address] [place] [address] Dr. Alfredo Lizama UR MICRO IND INDICATED Normal [facility] Comment on above: Performed By: #### U MICRO, ERUR #### [facility] [address] [place] [address] Dr. Alfredo Lizama Urobilinogen Qn (U) 1.0 {Tesha'U}/dL Normal 0.2 - 1. 0 [facility] Comment on above: Performed By: #### U MICRO, ERUR #### [facility] [address] [place] [address] Dr. Alfredo Lizama PROF CHEM 8 (BAS METB)on Anion gap [Moles/Vol] 12.0 mmol/L Normal Th e [facility] Comment on above: Performed By: #### U MICRO, ERUR #### [facility] [address] [place] [address] [address] Alfredo Lizama Calcium [Mass/Vol] 8.6 mg/dL Normal 8.5-10.1 [facility] Comment on above: Performed By: #### U MICRO, ERUR #### [facility] [address] [place] [address] Dr. Alfredo Lizama Chloride [Moles/Vol] 101 mmol/L Normal 98-107 [facility] Comment on above: Performed By: #### U MICRO, ERUR #### [facility] [address] [place] [address] Dr. Alfredo Lizama CO2 [Moles/Vol] 28.0 mmol/L Normal 21.0-32.0 [facility] Comment on above: Performed By: #### U MICRO, ERUR #### [facility] [address] [place] [address] Dr. Alfredo Lizama Creatinine [Mass/Vol] 0.77 mg/dL Normal 0.55-1.02 [facility] Comment on above: Performed By: #### U MICRO, ERUR #### [facility] [address] [place] [address] Dr. Alfredo Lizama EGFR-AF BELGIAN >60 Normal >=60 [facility] Comment on above: Performed By: #### U MICRO, ERUR #### [facility] [address] [place] [address] Dr. Alfredo Lizama EGFR-NON AF BELGIAN >60 Normal >=60 [facility] Comment on above: Performed By: #### U MICRO, ERUR #### [facility] [address] [place] [address] Dr. Alfredo Lizama Glucose [Mass/Vol] 96 mg/dL Normal 74-106 [facility] Comment on above: Performed By: #### U MICRO, ERUR #### [facility] [address] [place] [address] Dr. Alfredo Lizama Potassium [Moles/Vol] 4.0 mmol/L Normal 3.5-5.1 [facility] Comment on above: Performed By: #### U MICRO, ERUR #### [facility] [address] [place] [address] [address] Alfredo Lizama Sodium [Moles/Vol] 137 mmol/L Normal 136-145 [facility] Comment on above: Performed By: #### U MICRO, ERUR #### [facility] [address] [place] [address] Dr. Alfredo Lizama Urea nitrogen [Mass/Vol] 7.0 mg/dL Normal 7.0-18.0 [facility] Comment on above: Performed By: #### U MICRO, ERUR #### [facility] [address] [place] [address] Dr. Alfredo Lizama Urea nitrogen/Creatinine [Mass ratio] 9.1 mg/mg Normal [facility] Comment on above: Performed By: #### U MICRO, ERUR #### [facility] [address] [place] [address] Dr. Alfredo Lizama URINE MICROSCOPIC ONLYon BACTERIA MODERATE Abnormal NONE SEEN The [facility] Comment on above: Performed By: #### U MICRO, ERUR #### [facility] [address] [place] [address] Dr. Alfredo Lizama Bacteria identified Cx Nom (U) INDICATED Normal [facility] Comment on above: Performed By: #### U MICRO, ERUR #### [facility] [address] [place] [address] Dr. Alfredo Lizama CAST NONE SEEN Normal NONE SEEN [facility] Comment on above: Performed By: #### U MICRO, ERUR #### [facility] [address] [place] [address] Dr. Alfredo Lizama Crystals LM Nom (Urine sed) NONE SEEN Normal NONE SEEN [facility] Comment on above: Performed By: #### U MICRO, ERUR #### [facility] [address] [place] [address] Dr. Alfredo Lizama Epithelial cells LM Ql (Urine sed) FEW Abnormal NONE SEEN /RARE [facility] Comment on above: Performed By: #### U MICRO, ERUR #### [facility] [address] [place] [address] [address] Alfredo Lizama MUCOUS NONE SEEN Normal NONE SEEN [facility] Comment on above: Performed By: #### U MICRO, ERUR #### [facility] [address] [place] [address] Dr. Alfredo Lizama RBC 2-5 Abnormal 0-2 [facility] Comment on above: Performed By: #### U MICRO, ERUR #### [facility] [address] [place] [address] [address] Alfredo Lizama WBC 10-20 Abnormal NONE SEEN [facility] Comment on above: Performed By: #### U MICRO, ERUR #### [facility] [address] [place] [address] Dr. Alfredo Lizama CULTURE URINEon 04-10-2022 CULTURE [...] Trimethoprim/Sulfamethoxa zole <=20 S F Normal The [facility] Comment on above: Performed By: #### U MICRO, ERUR #### [facility] [address] [place] [address] [address] Alfredo SANDY URINE PROFILEon 2 Bilirubin Ql (U) Negative Normal NEGATIVE [facility] Comment on above: Performed By: #### U MICRO, ERUR #### [facility] [address] [place] [address] [address] Alfredo Lizama Clarity (U) CLOUDY Abnormal CLEAR [facility] Comment on above: Performed By: #### U MICRO, ERUR #### [facility] [address] [place] [address] [address] Alfredo Lizama Color (U) YELLOW Normal YELLOW [facility] Comment on above: Performed By: #### U MICRO, ERUR #### [facility] [address] [place] [address] Dr. Alfredo Lizama ERUAHD A micrscopic examina tion will be performed if indicated. Normal [facility] Comment on above: Performed By: #### U MICRO, ERUR #### [facility] [address] [place] [address] [address] Alfredo Lizama Glucose Ql (U) Negative Normal NEGATIVE [facility] Comment on above: Performed By: #### U MICRO, ERUR #### [facility] [address] [place] [address] Dr. Alfredo Lizama Hemoglobin Ql (U) SMALL Abnormal NEGATIVE [facility] Comment on above: Performed By: #### U MICRO, ERUR #### [facility] [address] [place] [address] [address] Alfredo Lizama Ketones Ql (U) Negative Normal NEGATIVE [facility] Comment on above: Performed By: #### U MICRO, ERUR #### [facility] [address] [place] [address] [address] Alfredo Lizama LEUKOCYTES LARGE Abnormal NEGATIVE [facility] Comment on above: Performed By: #### U MICRO, ERUR #### [facility] [address] [place] [address] [address] Alfredo Lizama Nitrite Ql (U) Negative Normal NEGATIVE [facility] Comment on above: Performed By: #### U MICRO, ERUR #### [facility] [address] [place] [address] Dr. Alfredo Lizama pH (U) 7.0 [pH] Normal 5-9 [facility] Comment on above: Performed By: #### U MICRO, ERUR #### [facility] [address] [place] [address] Dr. Alfredo Lizama SPEC GRAVITY <=1.005 Abnormal 1.005-<=1. 025 [facility] Comment on above: Performed By: #### U MICRO, ERUR #### [facility] [address] [place] [address] Dr. Alfredo Lizama UA PROTEIN Negative Normal NEGATIVE/ TRACE [facility] Comment on above: Performed By: #### U MICRO, ERUR #### [facility] [address] [place] [address] Dr. Alfredo Lizama UR MICRO IND INDICATED Normal [facility] Comment on above: Performed By: #### U MICRO, ERUR #### [facility] [address] [place] [address] Dr. Alfredo Lizama Urobilinogen Qn (U) 0.2 {Tesha'U}/dL Normal 0.2 - 1. 0 [facility] Comment on above: Performed By: #### U MICRO, ERUR #### [facility] [address] [place] [address] Dr. Alfredo Lizama URINE MICROSCOPIC ONLYon BACTERIA MODERATE Abnormal NONE SEEN The [facility] Comment on above: Performed By: #### U MICRO, ERUR #### [facility] [address] [place] [address] Dr. Alfredo Lizama Bacteria identified Cx Nom (U) INDICATED Normal [facility] Comment on above: Performed By: #### U MICRO, ERUR #### [facility] [address] [place] [address] Dr. Alfredo Lizama CAST NONE SEEN Normal NONE SEEN [facility] Comment on above: Performed By: #### U MICRO, ERUR #### [facility] [address] [place] [address] [address] Alfredo Lizama Crystals LM Nom (Urine sed) NONE SEEN Normal NONE SEEN [facility] Comment on above: Performed By: #### U MICRO, ERUR #### [facility] [address] [place] [address] [address] Alfredo Lizama Epithelial cells LM Ql (Urine sed) FEW Abnormal NONE SEEN /RARE [facility] Comment on above: Performed By: #### U MICRO, ERUR #### [facility] [address] [place] [address] [address] Alfredo Lizama MUCOUS NONE SEEN Normal NONE SEEN [facility] Comment on above: Performed By: #### U MICRO, ERUR #### [facility] [address] [place] [address] [address] Alfredo Lizama RBC 5-10 Abnormal 0-2 [facility] Comment on above: Performed By: #### U MICRO, ERUR #### [facility] [address] [place] [address] [address] Alfredo Lizama WBC (U) [#/Vol] /uL Abnormal NONE SEEN [facility] Comment on above: Performed By: #### U MICRO, ERUR #### [facility] [address] [place] [address] [address] Alfredo Lizama Basic Metabolic Panelon 11-03 Calcium [Mass/Vol] 8.9 mg/dL Normal 8.2-10.2 [facility] Comment on above: Performed By: #### C BC, CMP, PAB #### [facility] [address] [place] [address] [place] Chloride [Moles/Vol] 101 mmol/L Normal 95-114 [facility] Comment on above: Performed By: #### C BC, CMP, PAB #### [facility] [address] [place] [address] [place] CO2 [Moles/Vol] 29.0 mmol/L Normal 22.0-30.0 [facility] Comment on above: Performed By: #### C BC, CMP, PAB #### [facility] [address] Creatinine [Mass/Vol] 0.48 mg/dL Normal 0.44-1.03 [facility] Comment on above: Performed By: #### C DARIUS PATEL, PAB #### [address] Creatinine Clr Calc Pharmacy 150.29 [facility] Comment on above: Result Comment: PERF ORMED BY: [place] [address] PATHOLOGIST REACH TRUCK OPERATOR HUY COX M.D. Performed By: #### C DARIUS PATEL, PAB #### [facility] [place] [facility] [address] Estimated GFR ( July > 60 [facility] Comment on above: Result Comment: GFR estimated reference range: According to KDOQI guidelines, <60 ml/min/1.73m2 is sufficient to diagnose a patient with chronic kidney disease. Performed By: #### C DARIUS PATEL, PAB #### [address] Estimated GFR (Non- Am > 60 [facility] Comment on above: Performed By: #### C DARIUS PATEL, PAB #### [address] Glucose [Mass/Vol] 111 mg/dL High 70-100 [facility] Comment on above: Result Comment: [place] Glucose Reference Range is dependent on time and content of last meal. Glucose of more than 200 mg/dL in a nonstressed, ambulatory subject supports the diagnosis of Diabetes Mellitus. ADA recommended reference range Performed By: #### C DARIUS PATEL, PAB #### [facility] [place] [facility] [address] Potassium [Moles/Vol] 3.6 mmol/L Normal 3.5-5.1 [facility] Comment on above: Performed By: #### C DARIUS PATEL, PAB #### [facility] [place] [facility] [address] Sodium [Moles/Vol] 138 mmol/L Normal 136-146 [facility] Comment on above: Performed By: #### C BC, CMP, PAB #### [facility] [place] [facility] [address] Urea nitrogen [Mass/Vol] 10 mg/dL Normal 9- [facility] Comment on above: Performed By: #### C BC, CMP, PAB #### [facility] [address] Complete Blood Count Auto Di ffon 11-19-2021 Basophils (Bld) [#/Vol] 0.1 10*3/uL Normal 0.0-0.2 [facility] Comment on above: Result Comment: PERF ORMED BY: [place] [address] PATHOLOGIST REACH TRUCK OPERATOR HUY COX M.D. Performed By: #### C BC, CMP, PAB #### [address] Basophils/100 WBC (Bld) 0.8 % Normal . [facility] Comment on above: Performed By: #### C BC, CMP, PAB #### [facility] [address] [place] [address] [place] Eosinophils (Bld) [#/Vol] 0.4 10*3/uL Normal 0.0-0.45 [facility] Comment on above: Performed By: #### C BC, CMP, PAB #### [place] [address] [place] Eosinophils/100 WBC (Bld) 5.8 % Normal . [facility] Comment on above: Performed By: #### C BC, CMP, PAB #### [facility] [address] Erythrocyte distribution width (RBC) [Ratio] 14.3 % Normal 11.9-15.3 [facility] Comment on above: Performed By: #### C BC, CMP, PAB #### [facility] [address] Hematocrit (Bld) [Volume fraction] 36.0 % Normal 34.0-46.4 [facility] Comment on above: Performed By: #### C BC, CMP, PAB #### [facility] [address] [place] [address] [place] Hemoglobin (Bld) [Mass/Vol] 11.9 g/dL Normal 11.8-15.4 [facility] Comment on above: Performed By: #### C BC, CMP, PAB #### [facility] [place] [facility] [address] Lymphocytes (Bld) [#/Vol] 2.7 10*3/uL Normal 1.00-4.8 [facility] Comment on above: Performed By: #### C BC, CMP, PAB #### [facility] [place] [facility] [address] Lymphocytes/100 WBC (Bld) 37.6 % Normal . [facility] Comment on above: Performed By: #### C BC, CMP, PAB #### [facility] [place] [facility] [address] MCH (RBC) [Entitic mass] 28.1 pg Normal 24.7-34.3 [facility] Comment on above: Performed By: #### C BC, CMP, PAB #### [facility] [place] [facility] [address] [place] [address] [place] MCV (RBC) [Entitic vol] 85.3 fL Normal 80-100 [facility] Comment on above: Performed By: #### C BC, CMP, PAB #### [facility] [place] [facility] [address] Mean Corpuscular HGB Conc 32.9 g/dL Normal 32.0-35.0 [facility] Comment on above: Performed By: #### C BC, CMP, PAB #### [facility] [place] [facility] [address] [place] [address] [place] Monocytes (Bld) [#/Vol] 0.4 10*3/uL Normal 0.0-0.8 [facility] Comment on above: Performed By: #### C BC, CMP, PAB #### [facility] [place] [facility] [address] [place] [address] [place] Monocytes/100 WBC (Bld) 5.2 % Normal . [facility] Comment on above: Performed By: #### C BC, CMP, PAB #### [facility] [address] [place] [address] [place] Neutrophils (Bld) [#/Vol] 3.7 10*3/uL Normal 1.8-7.7 [facility] Comment on above: Performed By: #### C BC, CMP, PAB #### [facility] [address] Neutrophils/100 WBC (Bld) 50.6 % Normal . [facility] Comment on above: Performed By: #### C BC, CMP, PAB #### [facility] [address] Nucleated RBC/100 WBC (Bld) [Ratio] 0.0 % Normal 0-0.5 [facility] Comment on above: Performed By: #### C BC, CMP, PAB #### [facility] [place] [facility] [address] Platelet mean volume (Bld) [Entitic vol] 7.6 fL Normal 6.3-10.7 [facility] Comment on above: Performed By: #### C BC, CMP, PAB #### [facility] [place] [facility] [address] Platelets (Bld) [#/Vol] 252 10*3/uL Normal 150-450 [facility] Comment on above: Performed By: #### C BC, CMP, PAB #### [facility] [address] [place] [address] [place] RBC (Bld) [#/Vol] 4.22 10*6/uL Normal 3.60-5.00 [facility] Comment on above: Performed By: #### C BC, CMP, PAB #### [facility] [address] [place] [address] [place] WBC (Bld) [#/Vol] 7.2 10*3/uL Normal 4.5-11.0 [facility] Comment on above: Performed By: #### C BC, CMP, PAB #### [facility] [place] [facility] [address] [place] [address] [place] Ammoniaon 11-11-2021 Ammonia (P) [Moles/Vol] 26 umol/L Normal 11-35 [facility] Comment on above: Result Comment: PERF ORMED BY: [place] [address] PATHOLOGIST REACH TRUCK OPERATOR HUY COX M.D. Performed By: #### C BC, CMP, PAB #### [address] Hepatic Panelon 11-11-2021 Albumin [Mass/Vol] 3.0 g/dL Low 3.2-5.5 [facility] Comment on above: Performed By: #### C BC, CMP, PAB #### [address] Albumin/Globulin [Mass ratio] 1.0 {ratio} Normal [facility] Comment on above: Performed By: #### C BC, CMP, PAB #### [address] ALP [Catalytic activity/Vol] 187 U/L High 32-92 [facility] Comment on above: Result Comment: PERF ORMED BY: [place] [address] PATHOLOGIST REACH TRUCK OPERATOR HUY COX M.D. Performed By: #### C BC, CMP, PAB #### [address] ALT [Catalytic activity/Vol] 54 U/L Normal 10-60 [facility] Comment on above: Performed By: #### C BC, CMP, PAB #### [address] AST [Catalytic activity/Vol] 39 U/L Normal 10-42 [facility] Comment on above: Performed By: #### C BC, CMP, PAB #### [address] Bilirubin [Mass/Vol] 0.3 mg/dL Normal 0.3-1.2 [facility] Comment on above: Performed By: #### C BC, CMP, PAB #### [facility] [address] [place] [address] Bilirubin,Indirect Not performed Normal [facility] Comment on above: Performed By: #### C BC, CMP, PAB #### [facility] [address] Bilirubin.indirect [Mass/Vol] mg/dL Normal 0.0-0.4 [facility] Comment on above: Performed By: #### C BC, CMP, PAB #### [facility] [address] [place] [address] Globulin (S) [Mass/Vol] 3.0 g/dL Normal [facility] Comment on above: Performed By: #### C BC, CMP, PAB #### [address] Protein [Mass/Vol] 6.0 g/dL Low 6.1-7.9 [facility] Comment on above: Performed By: #### C BC, CMP, PAB #### [address] Hepatitis Acute Panelon 03-0 HBsAg Screen Negative Normal Negative [facility] Comment on above: Performed By: #### C BC, CMP, PAB #### [address] Hepatitis A Antibody IgM Negative Normal Negative [facility] Comment on above: Performed By: #### C BC, CMP, PAB #### [facility] [address] [place] [address] Hepatitis B Core Antibody IgM Negative Normal Negative [facility] Comment on above: Performed By: #### C BC, CMP, PAB #### [facility] [address] [place] [address] Hepatitis C Virus Antibody 0.2 Normal 0.0-0.9 [facility] Comment on above: Performed By: #### C BC, CMP, PAB #### [facility] [address] [place] [address] Interpretation Hepatitis C Normal . [facility] Comment on above: Result Comment: Dov chun Not infected with HCV, unless recent infection is suspected or other evidence exists to indicate HCV infection. Performed at: - [facility] [address] [id number] [place] [employer]: Pedro Luis José PhD, Phone: [phone] PERFORMED BY: [place] [address] PATHOLOGIST REACH TRUCK OPERATOR HUY COX M.D. Performed By: #### C BC, CMP, PAB #### [address] US liveron 11-11-2021 liver [facility] [address] [place] [address] Ultrasound Report Signed Patient: Morales Lee MR#: [id number] : 1975 Acct:[id number] Age/Sex: 46 / F ADM Date: 10/29/21 Loc: Room: [address] [place] [address] Type: ADM IN Attending Dr: Richard Acevedo [...] Alexandru Pond M.D.11/11/2021 10:23 AM Dictation Location: [place] [address] Tech: Ermelinda Diaz Transcribed By: CORTNEY 11/11/21 1023 Dictated By: Alexandru Pond DO 11/11/21 1018 Signed By: 11/11/21 1023 Normal [facility] Complete Blood Count Auto Di ffon 11-10-2021 Basophils (Bld) [#/Vol] 0.1 10*3/uL Normal 0.0-0.2 [facility] Comment on above: Result Comment: PERF ORMED BY: [place] [address] PATHOLOGIST REACH TRUCK OPERATOR HUY COX M.D. Performed By: #### C BC #### [address] Basophils/100 WBC (Bld) 1.2 % Normal . [facility] Comment on above: Performed By: #### C BC #### [address] Eosinophils (Bld) [#/Vol] 0.3 10*3/uL Normal 0.0-0.45 [facility] Comment on above: Performed By: #### C BC #### [address] Eosinophils/100 WBC (Bld) 5.9 % Normal . [facility] Comment on above: Performed By: #### C BC #### [address] Erythrocyte distribution width (RBC) [Ratio] 14.2 % Normal 11.9-15.3 [facility] Comment on above: Performed By: #### C BC #### [address] Hematocrit (Bld) [Volume fraction] 37.1 % Normal 34.0-46.4 [facility] Comment on above: Performed By: #### C BC #### [address] Hemoglobin (Bld) [Mass/Vol] 12.3 g/dL Normal 11.8-15.4 [facility] Comment on above: Performed By: #### C BC #### [address] Lymphocytes (Bld) [#/Vol] 2.0 10*3/uL Normal 1.00-4.8 [facility] Comment on above: Performed By: #### C BC #### [address] Lymphocytes/100 WBC (Bld) 36.5 % Normal . [facility] Comment on above: Performed By: #### C BC #### [address] MCH (RBC) [Entitic mass] 28.6 pg Normal 24.7-34.3 [facility] Comment on above: Performed By: #### C BC #### [address] MCV (RBC) [Entitic vol] 86.5 fL Normal 80-100 [facility] Comment on above: Performed By: #### C BC #### [address] Mean Corpuscular HGB Conc 33.1 g/dL Normal 32.0-35.0 [facility] Comment on above: Performed By: #### C BC #### [address] Monocytes (Bld) [#/Vol] 0.3 10*3/uL Normal 0.0-0.8 [facility] Comment on above: Performed By: #### C BC #### [address] Monocytes/100 WBC (Bld) 5.3 % Normal . [facility] Comment on above: Performed By: #### C BC #### [place] [address] [place] Neutrophils (Bld) [#/Vol] 2.8 10*3/uL Normal 1.8-7.7 [facility] Comment on above: Performed By: #### C BC #### [place] [address] [place] Neutrophils/100 WBC (Bld) 51.1 % Normal . [facility] Comment on above: Performed By: #### C BC #### [address] Nucleated RBC/100 WBC (Bld) [Ratio] 0.1 % Normal 0-0.5 [facility] Comment on above: Performed By: #### C BC #### [address] Platelet mean volume (Bld) [Entitic vol] 7.8 fL Normal 6.3-10.7 [facility] Comment on above: Performed By: #### C BC #### [address] Platelets (Bld) [#/Vol] 214 10*3/uL Normal 150-450 [facility] Comment on above: Performed By: #### C BC #### [address] RBC (Bld) [#/Vol] 4.28 10*6/uL Normal 3.60-5.00 [facility] Comment on above: Performed By: #### C BC #### [address] WBC (Bld) [#/Vol] 5.4 10*3/uL Normal 4.5-11.0 [facility] Comment on above: Performed By: #### C BC #### [address] Comprehensive Metabolic Pane shree 11-10-2021 Albumin [Mass/Vol] 2.9 g/dL Low 3.2-5.5 [facility] Comment on above: Performed By: #### C BC, CMP, PAB #### [address] Albumin/Globulin [Mass ratio] 0.9 {ratio} Normal [facility] Comment on above: Performed By: #### C BC, CMP, PAB #### [address] ALP [Catalytic activity/Vol] 201 U/L High 32-92 [facility] Comment on above: Performed By: #### C BC CMP, PAB #### [facility] [address] ALT [Catalytic activity/Vol] 67 U/L High 10-60 [facility] Comment on above: Performed By: #### C BC, CMP, PAB #### [facility] [address] AST [Catalytic activity/Vol] 66 U/L High 10-42 [facility] Comment on above: Performed By: #### C BC, CMP, PAB #### [facility] [address] Bilirubin [Mass/Vol] 0.4 mg/dL Normal 0.3-1.2 [facility] Comment on above: Performed By: #### C BC, CMP, PAB #### [facility] [address] Calcium [Mass/Vol] 8.7 mg/dL Normal 8.2-10.2 [facility] Comment on above: Performed By: #### C BC CMP, PAB #### [facility] [address] Chloride [Moles/Vol] 100 mmol/L Normal 95-114 [facility] Comment on above: Performed By: #### C BC, CMP, PAB #### [facility] [address] CO2 [Moles/Vol] 26.4 mmol/L Normal 22.0-30.0 [facility] Comment on above: Performed By: #### C BC, CMP, PAB #### [facility] [address] [place] [address] [place] Creatinine [Mass/Vol] 0.50 mg/dL Normal 0.44-1.03 [facility] Comment on above: Performed By: #### C BC, CMP, PAB #### [facility] [address] [place] [address] [place] Creatinine Clr Calc Pharmacy 142.11 Normal [facility] Comment on above: Result Comment: PERF ORMED BY: [place] [address] PATHOLOGIST REACH TRUCK OPERATOR HUY COX M.D. Performed By: #### C BC, CMP, PAB #### [address] Estimated GFR ( July > 60 [facility] Comment on above: Result Comment: GFR estimated reference range: According to KDOQI guidelines, <60 ml/min/1.73m2 is sufficient to diagnose a patient with chronic kidney disease. Performed By: #### C BC, CMP, PAB #### [address] Estimated GFR (Non- Am > 60 [facility] Comment on above: Performed By: #### C BC, CMP, PAB #### [address] Globulin (S) [Mass/Vol] 3.1 g/dL Normal [facility] Comment on above: Performed By: #### C BC, CMP, PAB #### [address] Glucose [Mass/Vol] 110 mg/dL High 70-100 [facility] Comment on above: Result Comment: [place] Glucose Reference Range is dependent on time and content of last meal. Glucose of more than 200 mg/dL in a nonstressed, ambulatory subject supports the diagnosis of Diabetes Mellitus. ADA recommended reference range Performed By: #### C BC, CMP, PAB #### [address] Potassium [Moles/Vol] 4.0 mmol/L Normal 3.5-5.1 [facility] Comment on above: Performed By: #### C BC, CMP, PAB #### [address] Protein [Mass/Vol] 6.0 g/dL Low 6.1-7.9 [facility] Comment on above: Performed By: #### C BC, CMP, PAB #### [facility] [address] [place] [id number] [place] Sodium [Moles/Vol] 136 mmol/L Normal 136-146 [facility] Comment on above: Performed By: #### C BC, CMP, PAB #### [facility] [address] [place] [id number] [place] Urea nitrogen [Mass/Vol] 8 mg/dL Low 9-23 [facility] Comment on above: Performed By: #### C BC, CMP, PAB #### [facility] [address] [place] [address] [place] Dipstick and Microscopicon 0 11-10-2021 Appearance (U) Turbid Critically abnormal Clear [facility] Comment on above: Order Comment: Name Collection Type:: Alvares Catheter Performed By: #### C BC, CMP, PAB #### [facility] [address] [place] [address] [place] Bacteria,Urine 3+ High None Seen [facility] Comment on above: Order Comment: Name Collection Type:: Alvares Catheter Performed By: #### C BC, CMP, PAB #### [facility] [address] [place] [address] [place] Bilirubin,Urine Negative Normal Negative [facility] Comment on above: Order Comment: Name Collection Type:: Alvares Catheter Performed By: #### C BC, CMP, PAB #### [facility] [address] [place] [id number] [place] Color (U) Yellow Normal Yellow [facility] Comment on above: Order Comment: Name Collection Type:: Alvares Catheter Performed By: #### C BC, CMP, PAB #### [facility] [address] [place] [id number] [place] Glucose Ql (U) Normal Normal Normal [facility] Comment on above: Order Comment: Name Collection Type:: Alvares Catheter Performed By: #### C BC, CMP, PAB #### [facility] [address] [place] [id number] [place] Hyaline Casts,Urine None Seen Normal 0-1 [facility] Comment on above: Order Comment: Name Collection Type:: Alvares Catheter Performed By: #### C BC, CMP, PAB #### [facility] [address] [place] [address] [place] Ketones Ql (U) Negative Normal Negative [facility] Comment on above: Order Comment: Name Collection Type:: Alvares Catheter Performed By: #### C BC, CMP, PAB #### [facility] [address] [place] [address] Leukocyte esterase Test strip Ql (U) 3+ High Negative [facility] Comment on above: Order Comment: Name Collection Type:: Alvares Catheter Performed By: #### C BC, CMP, PAB #### [address] Nitrite,Urine Positive High Negative [facility] Comment on above: Order Comment: Name Collection Type:: Alvares Catheter Performed By: #### C BC, CMP, PAB #### [address] Occult Blood,Urine 2+ High Negative [facility] Comment on above: Order Comment: Name Collection Type:: Alvares Catheter Result Comment: PERF ORMED BY: [place] [address] PATHOLOGIST REACH TRUCK OPERATOR HUY COX M.D. Performed By: #### C BC, CMP, PAB #### [address] Other Casts,Urine None Seen Normal None Seen [facility] Comment on above: Order Comment: Name Collection Type:: Alvares Catheter Result Comment: PERF ORMED BY: [place] [address] PATHOLOGIST REACH TRUCK OPERATOR HUY COX M.D. Performed By: #### C BC, CMP, PAB #### [facility] [address] [place] [address] [place] pH (U) 8.5 [pH] Normal 5.0-9.0 [facility] Comment on above: Order Comment: Name Collection Type:: Alvares Catheter Performed By: #### C BC, CMP, PAB #### [address] [address] [place] Protein,Urine Negative Normal Negative [facility] Comment on above: Order Comment: Name Collection Type:: Alvares Catheter Performed By: #### C BC, CMP, PAB #### [facility] [address] [place] [address] RBC,Urine 1-2 Normal 0-4 [facility] Comment on above: Order Comment: Name Collection Type:: Alvares Catheter Performed By: #### C BC, CMP, PAB #### [facility] [address] [place] [address] Specificy [place],Urine 1.006 Normal 1.00 1-1.03 0 [facility] Comment on above: Order Comment: Name Collection Type:: Alvares Catheter Performed By: #### C BC, CMP, PAB #### [facility] [address] [place] [address] Squamous Epithelial Cell,Urine 3-4 High 0-2 [facility] Comment on above: Order Comment: Name Collection Type:: Alvares Catheter Performed By: #### C BC, CMP, PAB #### [facility] [address] [place] [address] Triple Phosphate Crystal,Urine 2+ Normal [facility] Comment on above: Order Comment: Name Collection Type:: Alvares Catheter Performed By: #### C BC, CMP, PAB #### [facility] [address] [place] [address] Urobilinogen,Urine Normal Normal Normal [facility] Comment on above: Order Comment: Name Collection Type:: Alvares Catheter Performed By: #### C BC, CMP, PAB #### [facility] [address] [place] [address] [place] WBC,Urine 20-49 High 0-4 [facility] Comment on above: Order Comment: Name Collection Type:: Alvares Catheter Performed By: #### C BC, CMP, PAB #### [facility] [address] [place] [address] [place] Urine Cultureon 11-10-2021 Bacteria identified Cx Nom (U) ORGANISM: Providencia rettgeri (O:PRORET) [place] Count >100,000 Aerobic JOSE Charge (NUC86) SUSCEPTIBILITY [...] RESISTANT TO ALL B-LACTAM DRUGS. PERFORMED BY: [place] [address] PATHOLOGIST REACH TRUCK OPERATOR HUY COX M.D. [facility] Comment on above: Performed By: #### C BC, CMP, PAB #### [address] Basic Metabolic Panelon 03-0 Calcium [Mass/Vol] 8.7 mg/dL Normal 8.2-10.2 [facility] Comment on above: Performed By: #### B MP, CBC #### [address] Chloride [Moles/Vol] 102 mmol/L Normal 95-114 [facility] Comment on above: Performed By: #### B MP, CBC #### [address] CO2 [Moles/Vol] 25.5 mmol/L Normal 22.0-30.0 [facility] Comment on above: Performed By: #### B MP, CBC #### [address] Creatinine [Mass/Vol] 0.71 mg/dL Normal 0.44-1.03 [facility] Comment on above: Performed By: #### B MP, CBC #### [address] Creatinine Clr Calc Pharmacy 100.08 [facility] Comment on above: Result Comment: PERF ORMED BY: [place] [address] PATHOLOGIST REACH TRUCK OPERATOR HUY COX M.D. Performed By: #### B MP, CBC #### [address] Estimated GFR ( July > 60 [facility] Comment on above: Result Comment: GFR estimated reference range: According to KDOQI guidelines, <60 ml/min/1.73m2 is sufficient to diagnose a patient with chronic kidney disease. Performed By: #### B MP, CBC #### [address] Estimated GFR (Non- Am > 60 [facility] Comment on above: Performed By: #### B MP, CBC #### [address] Glucose [Mass/Vol] 104 mg/dL High 70-100 [facility] Comment on above: Result Comment: [place] Glucose Reference Range is dependent on time and content of last meal. Glucose of more than 200 mg/dL in a nonstressed, ambulatory subject supports the diagnosis of Diabetes Mellitus. ADA recommended reference range Performed By: #### B MP, CBC #### [address] Potassium [Moles/Vol] 4.1 mmol/L Normal 3.5-5.1 [facility] Comment on above: Performed By: #### B MP, CBC #### [facility] [address] Sodium [Moles/Vol] 137 mmol/L Normal 136-146 [facility] Comment on above: Performed By: #### B MP, CBC #### [facility] [address] Urea nitrogen [Mass/Vol] 10 mg/dL Normal 9-23 [facility] Comment on above: Performed By: #### B MP, CBC #### [address] Complete Blood Count Auto Di ffon 11-06-2021 Basophils (Bld) [#/Vol] 0.1 10*3/uL Normal 0.0-0.2 [facility] Comment on above: Result Comment: PERF ORMED BY: [place] [address] PATHOLOGIST REACH TRUCK OPERATOR HUY COX M.D. Performed By: #### B MP, CBC #### [address] Basophils/100 WBC (Bld) 0.8 % Normal . [facility] Comment on above: Performed By: #### B MP, CBC #### [address] Eosinophils (Bld) [#/Vol] 0.4 10*3/uL Normal 0.0-0.45 [facility] Comment on above: Performed By: #### B MP, CBC #### [address] Eosinophils/100 WBC (Bld) 5.5 % Normal . [facility] Comment on above: Performed By: #### B MP, CBC #### [address] Erythrocyte distribution width (RBC) [Ratio] 14.2 % Normal 11.9-15.3 [facility] Comment on above: Performed By: #### B MP, CBC #### [address] Hematocrit (Bld) [Volume fraction] 36.0 % Normal 34.0-46.4 [facility] Comment on above: Performed By: #### B MP, CBC #### [address] Hemoglobin (Bld) [Mass/Vol] 12.0 g/dL Normal 11.8-15.4 [facility] Comment on above: Performed By: #### B MP, CBC #### [address] Lymphocytes (Bld) [#/Vol] 2.4 10*3/uL Normal 1.00-4.8 [facility] Comment on above: Performed By: #### B MP, CBC #### [address] Lymphocytes/100 WBC (Bld) 35.2 % Normal . [facility] Comment on above: Performed By: #### B MP, CBC #### [address] MCH (RBC) [Entitic mass] 28.9 pg Normal 24.7-34.3 [facility] Comment on above: Performed By: #### B MP, CBC #### [address] MCV (RBC) [Entitic vol] 86.4 fL Normal 80-100 [facility] Comment on above: Performed By: #### B MP, CBC #### [address] Mean Corpuscular HGB Conc 33.4 g/dL Normal 32.0-35.0 [facility] Comment on above: Performed By: #### B MP, CBC #### [address] Monocytes (Bld) [#/Vol] 0.3 10*3/uL Normal 0.0-0.8 [facility] Comment on above: Performed By: #### B MP, CBC #### [place] [address] [place] Monocytes/100 WBC (Bld) 4.8 % Normal . [facility] Comment on above: Performed By: #### B MP, CBC #### [facility] [address] [place] [address] [place] Neutrophils (Bld) [#/Vol] 3.7 10*3/uL Normal 1.8-7.7 [facility] Comment on above: Performed By: #### B MP, CBC #### [facility] [address] Neutrophils/100 WBC (Bld) 53.7 % Normal . [facility] Comment on above: Performed By: #### B MP, CBC #### [facility] [address] Nucleated RBC/100 WBC (Bld) [Ratio] 0.0 % Normal 0-0.5 [facility] Comment on above: Performed By: #### B MP, CBC #### [facility] [address] Platelet mean volume (Bld) [Entitic vol] 8.2 fL Normal 6.3-10.7 [facility] Comment on above: Performed By: #### B MP, CBC #### [facility] [address] [place] [address] [place] Platelets (Bld) [#/Vol] 235 10*3/uL Normal 150-450 [facility] Comment on above: Performed By: #### B MP, CBC #### [facility] [address] [place] [address] [place] RBC (Bld) [#/Vol] 4.17 10*6/uL Normal 3.60-5.00 [facility] Comment on above: Performed By: #### B MP, CBC #### [facility] [address] [place] [address] [place] WBC (Bld) [#/Vol] 6.9 10*3/uL Normal 4.5-11.0 [facility] Comment on above: Performed By: #### B MP, CBC #### [facility] [address] US venous duplex LE BIon US venous duplex LE BI [facility] [address] [place] [address] Ultrasound Report Signed Patient: Morales Lee MR#: [id number] : 1975 Acct:[id number] Age/Sex: 46 / F ADM Date: 10/29/21 Loc: Room: [address] [place] [address] Type: ADM IN Attending Dr: Richard Acevedo [...] Carlos Neal MD11/04/2021 11:36 AM Dictation Location: [place] [address] Tech: Natalia Rivas Transcribed By: CORTNEY 11/04/21 1136 Dictated By: Juan Carlos Neal MD 11/04/21 1135 Signed By: 11/04/21 1136 Normal [facility] Complete Blood Count Auto Di ffon 10-30-2021 Basophils (Bld) [#/Vol] 0.0 10*3/uL Normal 0.0-0.2 [facility] Comment on above: Result Comment: PERF ORMED BY: [place] [address] PATHOLOGIST REACH TRUCK OPERATOR HUY COX M.D. Performed By: #### C BC, CMP, PAB #### [address] Basophils/100 WBC (Bld) 0.6 % Normal . [facility] Comment on above: Performed By: #### C BC, CMP, PAB #### [facility] [address] Eosinophils (Bld) [#/Vol] 0.4 10*3/uL Normal 0.0-0.45 [facility] Comment on above: Performed By: #### C BC, CMP, PAB #### [facility] [address] [place] [address] [place] Eosinophils/100 WBC (Bld) 4.9 % Normal . [facility] Comment on above: Performed By: #### C BC, CMP, PAB #### [facility] [address] Erythrocyte distribution width (RBC) [Ratio] 14.3 % Normal 11.9-15.3 [facility] Comment on above: Performed By: #### C BC, CMP, PAB #### [address] Hematocrit (Bld) [Volume fraction] 36.1 % Normal 34.0-46.4 [facility] Comment on above: Performed By: #### C BC, CMP, PAB #### [address] Hemoglobin (Bld) [Mass/Vol] 12.1 g/dL Normal 11.8-15.4 [facility] Comment on above: Performed By: #### C BC, CMP, PAB #### [place] [address] [place] Lymphocytes (Bld) [#/Vol] 2.8 10*3/uL Normal 1.00-4.8 [facility] Comment on above: Performed By: #### C BC, CMP, PAB #### [place] [address] [place] Lymphocytes/100 WBC (Bld) 39.0 % Normal . [facility] Comment on above: Performed By: #### C BC, CMP, PAB #### [address] MCH (RBC) [Entitic mass] 28.7 pg Normal 24.7-34.3 [facility] Comment on above: Performed By: #### C BC, CMP, PAB #### [facility] [address] MCV (RBC) [Entitic vol] 85.7 fL Normal 80-100 [facility] Comment on above: Performed By: #### C BC, CMP, PAB #### [facility] [address] Mean Corpuscular HGB Conc 33.4 g/dL Normal 32.0-35.0 [facility] Comment on above: Performed By: #### C BC, CMP, PAB #### [address] Monocytes (Bld) [#/Vol] 0.4 10*3/uL Normal 0.0-0.8 [facility] Comment on above: Performed By: #### C BC, CMP, PAB #### [address] Monocytes/100 WBC (Bld) 5.2 % Normal . [facility] Comment on above: Performed By: #### C BC, CMP, PAB #### [address] Neutrophils (Bld) [#/Vol] 3.6 10*3/uL Normal 1.8-7.7 [facility] Comment on above: Performed By: #### C BC, CMP, PAB #### [place] [address] [place] Neutrophils/100 WBC (Bld) 50.3 % Normal . [facility] Comment on above: Performed By: #### C BC, CMP, PAB #### [place] [address] [place] Nucleated RBC/100 WBC (Bld) [Ratio] 0.0 % Normal 0-0.5 [facility] Comment on above: Performed By: #### C BC, CMP, PAB #### [place] [address] [place] Platelet mean volume (Bld) [Entitic vol] 8.1 fL Normal 6.3-10.7 [facility] Comment on above: Performed By: #### C BC, CMP, PAB #### [facility] [address] Platelets (Bld) [#/Vol] 261 10*3/uL Normal 150-450 [facility] Comment on above: Performed By: #### C BC, CMP, PAB #### [address] RBC (Bld) [#/Vol] 4.22 10*6/uL Normal 3.60-5.00 [facility] Comment on above: Performed By: #### C BC, CMP, PAB #### [address] WBC (Bld) [#/Vol] 7.2 10*3/uL Normal 4.5-11.0 [facility] Comment on above: Performed By: #### C BC, CMP, PAB #### [address] Comprehensive Metabolic Pane shree 10-30-2021 Albumin [Mass/Vol] 2.8 g/dL Low 3.2-5.5 [facility] Comment on above: Performed By: #### C BC, CMP, PAB #### [address] Albumin/Globulin [Mass ratio] 1.0 {ratio} Normal [facility] Comment on above: Performed By: #### C BC, CMP, PAB #### [address] ALP [Catalytic activity/Vol] 116 U/L High 32-92 [facility] Comment on above: Performed By: #### C BC, CMP, PAB #### [address] ALT [Catalytic activity/Vol] 20 U/L Normal 10-60 [facility] Comment on above: Performed By: #### C BC, CMP, PAB #### [facility] [address] [id number] [facility] AST [Catalytic activity/Vol] 22 U/L Normal 10-42 [facility] Comment on above: Performed By: #### C BC CMP, PAB #### [facility] [address] [id number] [facility] Bilirubin [Mass/Vol] 0.5 mg/dL Normal 0.3-1.2 [facility] Comment on above: Performed By: #### C BC CMP, PAB #### [facility] [address] Calcium [Mass/Vol] 8.7 mg/dL Normal 8.2-10.2 [facility] Comment on above: Performed By: #### C JORGE CMP, PAB #### [facility] [address] Chloride [Moles/Vol] 105 mmol/L Normal 95-114 [facility] Comment on above: Performed By: #### C BC CMP, PAB #### [facility] [address] [place] [address] [place] CO2 [Moles/Vol] 26.8 mmol/L Normal 22.0-30.0 [facility] Comment on above: Performed By: #### C JORGE CMP, PAB #### [facility] [address] [id number] [place] Creatinine [Mass/Vol] 0.51 mg/dL Normal 0.44-1.03 [facility] Comment on above: Performed By: #### C BC CMP, PAB #### [facility] [address] [id number] [place] Creatinine Clr Calc Pharmacy 123.73 [facility] Comment on above: Performed By: #### C BC CMP, PAB #### [facility] [address] [place] [address] [place] Estimated GFR ( July > 60 Normal [facility] Comment on above: Result Comment: GFR estimated reference range: According to KDOQI guidelines, <60 ml/min/1.73m2 is sufficient to diagnose a patient with chronic kidney disease. Performed By: #### C BC CMP, PAB #### [facility] [address] Estimated GFR (Non- Am > 60 Normal [facility] Comment on above: Performed By: #### C DARIUS PATEL, PAB #### [facility] [address] Globulin (S) [Mass/Vol] 2.8 g/dL Normal [facility] Comment on above: Performed By: #### C JORGE CMP, PAB #### [address] Glucose [Mass/Vol] 115 mg/dL High 70-100 [facility] Comment on above: Result Comment: [facility] Glucose Reference Range is dependent on time and content of last meal. Glucose of more than 200 mg/dL in a nonstressed, ambulatory subject supports the diagnosis of Diabetes Mellitus. ADA recommended reference range Performed By: #### C DARIUS PATEL, PAB #### [address] Potassium [Moles/Vol] 3.7 mmol/L Normal 3.5-5.1 [facility] Comment on above: Performed By: #### C DARIUS PATEL, PAB #### [address] Protein [Mass/Vol] 5.6 g/dL Low 6.1-7.9 [facility] Comment on above: Performed By: #### C JORGE CMP, PAB #### [address] Sodium [Moles/Vol] 140 mmol/L Normal 136-146 [facility] Comment on above: Performed By: #### C JORGE CMP, PAB #### [address] Urea nitrogen [Mass/Vol] 7 mg/dL Low 9-23 [facility] Comment on above: Performed By: #### C BC, CMP, PAB #### [place] [address] [place] Dipstick and Microscopicon 0 2-25-2022 Appearance (U) Clear Normal Clear [facility] Comment on above: Order Comment: Name Collection Type:: Voided Performed By: #### A DDONUAPLUS, CUU #### [address] Bacteria,Urine 4+ High None Seen [facility] Comment on above: Order Comment: Name Collection Type:: Voided Performed By: #### A DDONUAPLUS, CUU #### [place] [address] [place] Bilirubin,Urine Negative Normal Negative [facility] Comment on above: Order Comment: Name Collection Type:: Voided Performed By: #### A DDONUAPLUS, CUU #### [address] Color (U) Yellow Normal Yellow [facility] Comment on above: Order Comment: Name Collection Type:: Voided Performed By: #### A DDONUAPLUS, CUU #### [address] Glucose Ql (U) Normal Normal Normal [facility] Comment on above: Order Comment: Name Collection Type:: Voided Performed By: #### A DDONUAPLUS, CUU #### [address] Hyaline Casts,Urine 0-8 Normal 0-8 [facility] Comment on above: Order Comment: Name Collection Type:: Voided Result Comment: PERF ORMED BY: [place] [address] PATHOLOGIST REACH TRUCK OPERATOR HUY COX M.D. Performed By: #### A DDONUAPLUS, CUU #### [place] [address] [place] Ketones Ql (U) Negative Normal Negative [facility] Comment on above: Order Comment: Name Collection Type:: Voided Performed By: #### A DDONUAPLUS, CUU #### [place] [address] [place] Leukocyte esterase Test strip Ql (U) 3+ High Negative [facility] Comment on above: Order Comment: Name Collection Type:: Voided Performed By: #### A DDONUAPLUS, CUU #### [address] Nitrite,Urine Positive High Negative [facility] Comment on above: Order Comment: Name Collection Type:: Voided Performed By: #### A DDONUAPLUS, CUU #### [address] Occult Blood,Urine Negative Normal Negative [facility] Comment on above: Order Comment: Name Collection Type:: Voided Result Comment: PERF ORMED BY: [place] [address] PATHOLOGIST REACH TRUCK OPERATOR HUY COX M.D. Performed By: #### A DDONUAPLUS, CUU #### [address] pH (U) 5.5 [pH] Normal 5.0-9.0 [facility] Comment on above: Order Comment: Name Collection Type:: Voided Performed By: #### A DDONUAPLUS, CUU #### [address] Protein,Urine Negative Normal Negative [facility] Comment on above: Order Comment: Name Collection Type:: Voided Performed By: #### A DDONUAPLUS, CUU #### [place] [address] [place] RBC LM.HPF (Urine sed) [#/Area] 0 /[HPF] Normal 0-4 [facility] Comment on above: Order Comment: Name Collection Type:: Voided Performed By: #### A DDONUAPLUS, CUU #### [place] [address] [place] Specificy [place],Urine 1.012 Normal 1.00 1-1.03 0 [facility] Comment on above: Order Comment: Name Collection Type:: Voided Performed By: #### A DDONUAPLUS, CUU #### [facility] [address] [place] [address] Squamous Epithelial Cell,Urine 0-1 Normal 0-2 [facility] Comment on above: Order Comment: Name Collection Type:: Voided Performed By: #### A DDONUAPLUS, CUU #### [address] Urobilinogen,Urine Normal Normal Normal [facility] Comment on above: Order Comment: Name Collection Type:: Voided Performed By: #### A DDONUAPLUS, CUU #### [address] WBC,Urine 20-49 High 0-4 [facility] Comment on above: Order Comment: Name Collection Type:: Voided Performed By: #### A DDONUAPLUS, CUU #### [address] Prealbuminon 10-30-2021 Prealbumin [Mass/Vol] 13.1 mg/dL Low 18.0-38.0 [facility] Comment on above: Result Comment: PERF ORMED BY: [place] [address] PATHOLOGIST REACH TRUCK OPERATOR HUY COX M.D. Performed By: #### C BC, CMP, PAB #### [address] Urine Cultureon 10-30-2021 Bacteria identified Cx Nom (U) ORGANISM: Escherichia coli (O:ESCCOL) [place] Count >100,000 Aerobic JOSE Charge (NUC86) SUSCEPTIBILITY [...] RESISTANT TO ALL B-LACTAM DRUGS. PERFORMED BY: [place] [address] PATHOLOGIST REACH TRUCK OPERATOR HUY COX M.D. Normal [facility] Comment on above: Performed By: #### A DDCHANTEUAKRIS, RUBIU #### [address] COVID-19 FRon 10-29-2021 SARS-CoV-2 (COVID-19) RNA ADRIÁN+probe Ql (Unsp spec) Negative Normal Negative [facility] Comment on above: Order Comment: Healt hcare Worker?: N Result Comment: Testing for SARS-CoV-2 by RT-PCR This test was developed and its performance characteristics determined by [employer] and validated at the [facility]. This test has not been FDA [...] is terminated or revoked sooner. PERFORMED BY: [facility] [address] [place] [address] PATHOLOGIST REACH TRUCK OPERATOR HUY COX M.D. Performed By: #### C OVID 19 [facility] #### [facility] [address] Clinical Event Note-Need for Hospital Bedon [...] of the lumbar region. Provider/Team Contact Info-Pager [phone] Electronic Signatures: Sharmin Guaman (FITNESS CENTER ATTENDANT-AIRPORT TOWER CONTROLLER) (Signed 02-Oct-2021 15:19) Authored: Clinical Event Note Last Updated: 02-Oct-2021 15:19 by Sharmin Guaman (FITNESS CENTER ATTENDANT-AIRPORT TOWER CONTROLLER) Normal [facility] Clinical Event Note-Need for wheel [...] home, can self propel or has a hearing care practitioner to provide assistance. Provider/Team Contact Info-Pager [phone] Electronic Signatures: Sharmin Guaman (FITNESS CENTER ATTENDANT-AIRPORT TOWER CONTROLLER) (Signed 02-Oct-2021 15:27) Authored: Clinical Event Note Last Updated: 02-Oct-2021 15:27 by Sharmin Guaman (FITNESS CENTER ATTENDANT-AIRPORT TOWER CONTROLLER) Normal [facility] Daily Progress Note-Neurosur jinny 10-02-2021 Daily Progress Note-Neurosurgery Service: Neurosurgery Subjective Data: MORALES LEE is a 46 year old Female who is Hospital Day # 18 and POD #11 for posterior L4-L5 decompression;posterior L4-L5 arthrodesis. Objective Data: Objective Information: T PRBPSpO2 [id number]/8397% Date/Time1/28 1: 1: 1: 1: 1:28 Range(36.2C [...] 2021 10:00 pm000 Oct 01, 2021 2:00 [id number] The Intake and Output Totals for the [...] the note. I personally evaluated the patient [id number] Electronic Signatures: Kenneth Philippe (Resident)) (Signed 02-Oct-2021 06:52) Authored: Service, Subjective Data, Objective Data, Assessment and Plan, Note Completion Lex Frederick) (Signed 02-Oct-2021 15:16) Authored: Note Completion Co-Signer: Service, Subjective Data, Objective Data, Assessment and Plan, Note Completion Last Updated: 02-Oct-2021 15:16 by Lex Frederick) [facility] Clinical Event Note-Discharg e discussionon [...] duration of trip. Electronic Signatures: Ambrocio Izaguirre (FITNESS CENTER ATTENDANT-AIRPORT TOWER CONTROLLER) (Signed 01-Oct-2021 17:11) Authored: Clinical Event Note Last Updated: 01-Oct-2021 17:11 by Ambrocio Izaguirre (FITNESS CENTER ATTENDANT-AIRPORT TOWER CONTROLLER) Normal [facility] Clinical Event Note-Need for hospital [...] when lying flat. Electronic Signatures: Ambrocio Izaguirre (FITNESS CENTER ATTENDANT-AIRPORT TOWER CONTROLLER) (Signed 01-Oct-2021 14:48) Authored: Clinical Event Note Last Updated: 01-Oct-2021 14:48 by Ambrocio Izaguirre (FITNESS CENTER ATTENDANT-AIRPORT TOWER CONTROLLER) Normal [facility] Daily Progress Note-Nuha leonidasgaurang 10-01-2021 Daily Progress Note-Neurosurgery Service: Neurosurgery Subjective Data: MORALES LEE is a 46 year old Female who is Hospital Day # 17 and POD #10 for posterior L4-L5 decompression;posterior L4-L5 arthrodesis. Objective Data: Objective Information: T PRBPSpO2 [id number]/7194% Date/Time10/01 0: 0: 0:381 0:381 0:38 Range(35.6C - 36.8C ) (64 - 96 ) (16 - 19 ) (94 - 138 )/ (59 - 83 ) (92% - 94% ) Pain reported at 09/30 9:00: 2 = Mild ---- Intake and Output ----- Mn/Dy/Year TimeIntakeOutputNet Sep 29, 2021 10:00 [id number] Sep 29, 2021 2:00 [id number] Sep 29, 2021 6:00 am000 The Intake [...] Updated: 01-Oct-2021 10:29 by Lex Frederick) Normal [facility] Daily Progress Note-Neurosurgery This report has been cancelled. Normal [facility] Daily Progress Note-Nuha stearns 09-30-2021 Daily Progress Note-Neurosurgery Service: Neurosurgery Subjective Data: MORALES LEE is a 46 year old Female who is Hospital Day # 15 and POD #8 for posterior L4-L5 decompression;posterior L4-L5 arthrodesis. Objective Data: Objective Information: T PRBPSpO2 [id number]/7393% Date/Time09/29 16: 16: 16: 16: 16:00 Range(36C - 36.7C ) (67 - 86 ) (17 - 20 ) (94 - 153 )/ (15 - 113 ) (93% - 98% ) Pain reported at 09/29 9:56: 5 = Moderate ---- Intake and Output ----- Mn/Dy/Year TimeIntakeOutputNet Sep 29, 2021 2:00 [id number] Sep 29, 2021 6:00 am000 Sep 28, 2021 10:00 [id number] The Intake and Output Totals for the [...] the note. I personally evaluated the patient [id number] Electronic Signatures: Lex Frederick) (Signed 30-Sep-2021 11:18) Authored: Note Completion Co-Signer: Service, Subjective Data, Objective Data, Assessment and Plan, Note Completion Jaya Mosquera (Resident)) (Signed 30-Sep-2021 03:18) Authored: Service, Subjective Data, Objective Data, Assessment and Plan, Note Completion Last Updated: 30-Sep-2021 11:18 by Lex Frederick) [facility] Rehab Ykpc-oq-letwbfvpc - co -tx /c OT to address multidiscipon 09-30-2021 Rehab Thlm-sg-llltlxdga - co-tx /c OT to address multidiscip Rehab: Info: Disciplinephysical occupational therapy professor Mode of Treatmentphysical therapy; co-treatment; co-tx /c OT to address multidisciplinary functional needs and maximize pt's safety. Time IN12:15 Time OUT12:55 Total Treatment [id number] Patient in ... at end of sessionbed, 3 railings up; alarm off; not on at start of visit Communicated with ... at end of sessionbedside nurse Patient Effortgood Symptoms Noted During/After Treatmentfatigue Treatment Considerations/CommentsEx tensive discussion /c amongst PAPETERIE TABLE ASSEMBLER, OT, and pt regarding her current physical [...] rolling right; rolling left; scooting/bridging Roll Left [place] (Bed Mobility)moderate assist (50% patient effort); 1 person assist; nonverbal cues (demo/gesture); verbal cues Roll Right [place] (Bed Mobility)moderate assist (50% patient effort); 1 person assist; nonverbal cues (demo/gesture); verbal cues Scoot/Bridge [place] (Bed Mobility)maximum assist (25% patient effort); 2 person assist; nonverbal cues (demo/gesture); verbal cues Kailuv-rx-Mzk [place] (Bed Mobility)maximum assist (25% patient effort); 2 person assist; nonverbal cues (demo/gesture); verbal cues Uhh-kb-Ntckci [place] (Bed Mobility)maximum assist (25% patient effort); 2 person assist; nonverbal cues (demo/gesture); verbal cues Assistive Device (Bed Mobility)bed rails; draw sheet Comment, Bed MobilityPt showing improvement in her ability to roll, performing 50% of AROM to achieve full rolling position. Transfer Assessment/Interventionss it to stand transfer; stand to sit transfer Comment, TransfersToday's session, OT and I utilized [employer] Stand device to assist pt into full [...] Pt repositioned back to sitting EOB. Sit-Stand [place] (Transfers)dependent (less than 25% patient effort) Sit-Stand Assistive Device (Transfers)mechanical lift/aid Stand-Sit [place] (Transfers)dependent (less than 25% patient effort) Stand-Sit [...] Score8 Short Term Goals: Bed Mobility: Date [id number] Bed Mobility: [place] Level Goalminimum assist (75% patients effort) Bed Mobility: Physical Assist Level Goal1-person assist, verbal cues Bed Mobility: Time Frame for Goal2 wks Transfer: Established [id number] Transfer: Transfer Type Sxrprdk-qo-jzkhm/chair-to -bed; pkz-aa-curwf/eqnuw-zi-frj Transfer: [place] Level Goalmoderate assist (50% patients effort) Transfer: Physical Assist Level Goal1-person assist; verbal cues Transfer: Assistive Device Goalrolling walker Transfer: Time Frame for Goal2 wks Gait: Established [id number] Gait: [place] Level Goalmoderate assist (50% patients (more content not included)... Normal [facility] Rehab Note-cardiopulmonary physical therapist apy - co-tx with PT to maximizeon 09-30-2021 Rehab Note-occupational therapy - co-tx with PT to maximize Rehab: Info: Disciplineoccupational therapist Mode of Treatmentoccupational therapy; co-tx with PT to maximize pt's mobility and safety. Time IN12:15 Time OUT12:55 Total Treatment [id number] Patient in ... at end of sessionbed, [...] olling right; rolling left; scooting/bridging Roll Left [place] (Bed Mobility)moderate assist (50% patient effort); 1 person assist; nonverbal cues (demo/gesture); verbal cues Roll Right [place] (Bed Mobility)moderate assist (50% patient effort); 1 person assist; nonverbal cues (demo/gesture); verbal cues Scoot/Bridge [place] (Bed Mobility)maximum assist (25% patient effort); 2 [...] lower body dressing; upper body dressing; bathing [place] Level (Bathing)set up; verbal cues; moderate assist (50% patient effort); 1 person assist Comment (Bathing)anticipated due to impaired balance, strength, and pain. [place] Level (Upper Body Dressing)set up; verbal cues; moderate assist (50% patient effort) Comment (Upper Body Dressing)anticipated due to impaired balance, strength, and pain. [place] Level (Lower Body Dressing)don; socks; dependent (less than 25% patient effort) Position (Lower Body Dressing)supine [place] Level (Grooming)modified independence Comment (Grooming)Pt observed applying Orajel to gums, able to manage packaging, cap un/screwing, and application. [place] Level (Feeding)modified independence Comment (Feeding)Pt able to retrieve OJ cup from tray table at R side, bring to mouth, and drink appropriately. [place] Level (Toileting)dependent (less than 25% patient effort); [...] Score15 Short Term Goals: Bed Mobility: Date [id number] Bed Mobility: [place] Level Goalcontact guard Bed Mobility: Physical Assist Level Goalset-up, verbal cues Bed Mobility: Time Frame for Goal2 wks Transfer: Established [id number] Transfer: Transfer Type Dzuntia-xe-kpsmx/chair-to -bed; oac-ye-gicse/ngyhk-zx-jat ; toilet Transfer: [place] Level Goalminimum assist (75% patients effort) Transfer: Physical Assist Level Goalset-up; verbal cues; 1-person assist Transfer: Assistive Device GoalLRD Transfer: Time Frame for Goal2 wks Balance: Established [id number] Balance: Goal DetailsPt will perform ADL while reaching outside MADDIE and returning self to midline >8 minutes with set-up assist, SBA, and minimal verbal cues for safety. Enrique (more content not included)... Normal [facility] Daily Progress Note-Neurosjudy stearns 09-29-2021 Daily Progress Note-Neurosurgery Service: Neurosurgery Subjective Data: MORALES LEE is a 46 year old Female who is Hospital Day # 14 and POD #7 for posterior L4-L5 decompression;posterior L4-L5 arthrodesis. Objective Data: Objective Information: T PRBPSpO2 [id number]/[id number]% Date/Time09/28 4: 8: 8: 8: 8:00 Range(36C [...] 2021 6:00 am000 Sep 27, 2021 10:00 [id number] Sep 27, 2021 2:00 [id number] The Intake and Output Totals for the last 24 hours are: IntakeOutputNet [id number] Physical Exam by System: Neurological: A&Ox3 RUE [...] the note. I personally evaluated the patient [id number] Electronic Signatures: Lex Frederick) (Signed 29-Sep-2021 09:23) Authored: Note Completion Co-Signer: Service, Subjective Data, Objective Data, Assessment and Plan, Note Completion Jaya Mosquera (Resident)) (Signed 29-Sep-2021 03:01) Authored: Service, Subjective Data, Objective Data, Assessment and Plan, Note Completion Last Updated: 29-Sep-2021 09:23 by Lex Frederick) [facility] Aakp-tm-dxunhpqax - co -tx /c OT to address multidiscipon 09-29-2021 Rehab Tffm-rb-ojxgnzfcb - co-tx /c OT to address multidiscip Rehab: Info: Disciplinephysical occupational therapy professor Mode of Treatmentphysical therapy; co-treatment; co-tx /c OT to address multidisciplinary functional needs and maximize pt's safety. Time IN14:30 Time OUT15:40 Total Treatment [id number] Patient in ... at end of sessionbed, [...] to sit; sit to supine Roll Left [place] (Bed Mobility)maximum assist (25% patient effort); 2 person assist; verbal cues; nonverbal cues (demo/gesture) Roll Right [place] (Bed Mobility)maximum assist (25% patient effort); 2 person assist; verbal cues; nonverbal cues (demo/gesture) Scoot/Bridge [place] (Bed Mobility)maximum assist (25% patient effort); 2 person assist; nonverbal cues (demo/gesture); verbal cues Hritij-hk-Yrt [place] (Bed Mobility)maximum assist (25% patient effort); 2 person assist; nonverbal cues (demo/gesture); verbal cues Kkn-wm-Tpmvpg [place] (Bed Mobility)verbal cues; nonverbal cues (demo/gesture); maximum [...] Pt repositioned back to sitting EOB. Sit-Stand [place] (Transfers)dependent (less than 25% patient effort) Sit-Stand Assistive Device (Transfers)mechanical lift/aid Stand-Sit [place] (Transfers)dependent (less than 25% patient effort) Stand-Sit [...] Score8 Short Term Goals: Bed Mobility: Date Tprddvotjrw66-Bjn-1689 Bed Mobility: [place] Level Goalminimum assist (75% patients effort) Bed Mobility: Physical Assist Level Goal1-person assist, verbal cues Bed Mobility: Time Frame for Goal2 wks Transfer: Established [id number] Transfer: Transfer Type Lbsggnc-fp-kfhmc/chair-to -bed; jmz-fh-rbhar/iynom-ah-uqy Transfer: [place] Level Goalmoderate assist (50% patients effort) Transfer: Physical Assist Level Goal1-person assist; verbal cues Transfer: Assistive Device Goalrolling walker Transfer: Time Frame for Goal2 wks Gait: Established [id number] Gait: [place] Level Goalmoderate assist (50% patients effort) Gait: Physical Assist Level1-person assist; verbal cues Gait: Assistive Device Goalrolling walker Gait: Distance Goal15 feet Gait: Time Frame for Goal2 wks Balance: Established [id number] Balance: Goal DetailsSitting EOB 20 minutes with 0-1 UE support, SBA for static sitting, CGA for dynamic. Standing 1 minute with FWW and CGA Education: Learnerpatient Topicrehab plan of care; discharge recommendations including destination and/or equipment Outcome Summary: Progress: Physical Therapyprogress towards functional goals is fair Outcome (more content not included)... Normal [facility] Rehab Note-cardiopulmonary physical therapist apy - co-tx with PT to maximizeon 09-29-2021 Rehab Note-occupational therapy - co-tx with PT to maximize Rehab: Info: Disciplineoccupational therapist Mode of Treatmentoccupational therapy; co-tx with PT to maximize pt's mobility and safety. Time IN14:30 Time OUT15:40 Total Treatment [id number] Patient in ... at end of sessionbed, [...] to sit; sit to supine Roll Left [place] (Bed Mobility)maximum assist (25% patient effort); 2 person assist; verbal cues; nonverbal cues (demo/gesture); multiple rolls to adjust harness Roll Right [place] (Bed Mobility)maximum assist (25% patient effort); 2 person assist; verbal cues; nonverbal cues (demo/gesture); multiple rolls to adjust harness Scoot/Bridge [place] (Bed Mobility)maximum assist (25% patient effort); 2 person assist; nonverbal cues (demo/gesture); verbal cues; boost HOB Ncufbk-qh-Sjk [place] (Bed Mobility)maximum assist (25% patient effort); 2 person assist; nonverbal cues (demo/gesture); verbal cues Sux-jc-Pflbpp [place] (Bed Mobility)verbal cues; nonverbal cues (demo/gesture); maximum assist (25% patient effort); 2 person assist Assistive Device (Bed Mobility)draw sheet; bed rails Transfer Assessment/Interventionss it to stand transfer; stand to sit transfer Sit-Stand [place] (Transfers)dependent (less than 25% patient effort) Sit-Stand Assistive Device (Transfers)mechanical lift/aid; Faye Plus Stand-Sit [place] (Transfers)dependent (less than 25% patient effort) Stand-Sit Assistive Device (Transfers)mechanical lift/aid; Faye Plus Safety Issues Impacting Function (Mobility)awareness of need for assistance; insight into deficits/self awareness Impairments Impacting Function (Mobility)endurance/activ ity tolerance; strength; balance; coordination; postural/trunk control ADL: BADL Assessment/Interventionto ileting; feeding; grooming; lower body dressing; upper body dressing; bathing [place] Level (Bathing)set up; verbal cues; moderate assist (50% patient effort); 1 person assist Comment (Bathing)anticipated due to impaired balance, strength, and pain. [place] Level (Upper Body Dressing)set up; verbal cues; moderate assist (50% patient effort) Comment (Upper Body Dressing)anticipated due to impaired balance, strength, and pain. [place] Level (Lower Body Dressing)don; socks; dependent (less than 25% patient effort) Position (Lower Body Dressing)supine [place] Level (Grooming)set up; contact guard Comment (Grooming)anticipated due to impaired balance, strength, and pain. [place] Level (Feeding)set up; modified independence Comment (Feeding)anticipated [place] Level (Toileting)dependent (less than 25% patient effort); purewick Impairments, BADL Safety/Performancebalance ; cognition; endurance/activity tolerance; strength; trunk/postural control Cognitive Impairments, BADL Safety/Performanceawarene ss, need for assistance; insight into deficits/self awareness; judgment; problem solving/reasoning Motor: Sitting, Static (Balance)good balance SBA Sitting, Dynamic (Balance)fair balance CGA Ltn-lc-Kpfyc (Balance)poor balance Total A via Faye Plus lift Standing, Static (Balance)poor balance Max A x1 - via Faye Plus Standing, Dynamic (Balance)unable to balance Balance ActivitiesPt sat EOB ~20 minutes throughout session primarily with SB (more content not included)... Normal [facility] Clinical Event Note-Medical Assessmenton 09-28-2021 [...] oil enema alternating with tap water enema T1Vcsou - Bisacodyl suppository QHS Daily - Monitor [...] note 45 minutes; Electronic Signatures: Concetta Shi (FITNESS CENTER ATTENDANT-AIRPORT TOWER CONTROLLER) (Signed 28-Sep-2021 14:31) Authored: Clinical Event Note Last Updated: 28-Sep-2021 14:31 by Concetta Shi (FITNESS CENTER ATTENDANT-AIRPORT TOWER CONTROLLER) Normal [facility] Daily Progress Note-Gastroen terologyon 09-28-2021 Daily Progress Note-Gastroenterology Service: Gastroenterology Subjective Data: MORALES LEE is a 46 year old Female who is Hospital Day # 14 and POD #7 for posterior L4-L5 decompression;posterior L4-L5 arthrodesis. No events overnight. Had one bowel movement this am. Otherwise no complaints. Objective Data: Objective Information: T PRBPSpO2 [id number]/6993% Date/Time09/28 4: 8: 8: 8: 8:00 Range(36C [...] 2021 6:00 am000 Sep 27, 2021 10:00 [id number] Sep 27, 2021 2:00 [id number] The Intake and Output Totals for the last 24 hours are: IntakeOutputNet [id number] Physical Exam by System: Constitutional: Constitutional: A&Ox3, [...] recommend tr (more content not included)... Normal [facility] Daily Progress Note-Nuha jinny 09-28-2021 Daily Progress Note-Neurosurgery Service: Neurosurgery Subjective Data: MORALES LEE is a 46 year old Female who is Hospital Day # 14 and POD #7 for posterior L4-L5 decompression;posterior L4-L5 arthrodesis. Objective Data: Objective Information: T PRBPSpO2 [id number]/4893% Date/Time09/28 4: 4: 4: 4: 4:00 Range(36C - 36.6C ) (72 - 87 ) (15 - 22 ) (92 - 153 )/ (48 - 113 ) (92% - 99% ) As of 27-Sep-2021 22:00:00, patient is on 2 L/min of oxygen via nasal cannula. Pain reported at 09/27 22:00: 0 = None ---- Intake and Output ----- Mn/Dy/Year TimeIntakeOutputNet Sep 26, 2021 10:00 [id number] Sep 26, 2021 2:00 [id number] The Intake and Output Totals for the last 24 hours are: IntakeOutputNet [id number] Physical Exam by System: Neurological: A&Ox3 RUE [...] the note. I personally evaluated the patient [id number] Electronic Signatures: Fidel Maciel (Resident)) (Signed 28-Sep-2021 05:47) Authored: Service, Subjective Data, Objective Data, Assessment and Plan, Note Completion Lex Frederick) (Signed 28-Sep-2021 07:32) Authored: Note Completion Co-Signer: Service, Subjective Data, Objective Data, Assessment and Plan, Note Completion Last Updated: 28-Sep-2021 07:32 by Lex Frederick) Normal [facility] RENAL FUNCTION PANELon 09-28 Albumin [Mass/Vol] 3.1 g/dL Low 3.4 - 5.0 [facility] Comment on above: Performed By: #### R ENAL ####[id number] [place] [address] Anion gap [Moles/Vol] 17 mmol/L Normal 10 - 20 [facility] Comment on above: Performed By: #### R ENAL ####[id number] [place] [address] Calcium [Mass/Vol] 8.4 mg/dL Low 8.6 - 10.6 [facility] Comment on above: Performed By: #### R ENAL ####[id number] [place] [address] Chloride [Moles/Vol] 102 mmol/L Normal 98 - 107 [facility] Comment on above: Performed By: #### R ENAL ####[id number] [place] [address] Creatinine [Mass/Vol] 0.47 mg/dL Low 0.50 - 1.05 [facility] Comment on above: Performed By: #### R ENAL ####[id number] [place] [address] eGFR FEMALE >90 Normal >90 [facility] Comment on above: Result Comment: CALC ULATIONS OF ESTIMATED GFR ARE PERFORMED USING THE 2020 CKD-EPI STUDY REFIT EQUATION WITHOUT THE RACE VARIABLE FOR THE IDMS-TRACEABLE CREATININE METHODS. https://jasn.asnjournals.org/content//ASN.542 8213745 Performed By: #### R ENAL ####[id number] [place] [address] Glucose [Mass/Vol] 74 mg/dL Normal 74 - 99 [facility] Comment on above: Performed By: #### R ENAL ####[id number] [place] [address] HCO3 (Bld) [Moles/Vol] 27 mmol/L Normal 21 - 32 [facility] Comment on above: Performed By: #### R ENAL ####[id number] [place] [address] Phosphate [Mass/Vol] 3.4 mg/dL Normal 2.5 - 4.9 [facility] Comment on above: Result Comment: The performance characteristics of phosphorus testing in heparinized plasma have been validated by the individual laboratory site where testing is performed. Testing on heparinized plasma is not approved by the FDA; however, such approval is not necessary. Performed By: #### R ENAL ####[id number] [place] [address] Potassium [Moles/Vol] 3.7 mmol/L Normal 3.5 - 5.3 [facility] Comment on above: Performed By: #### R ENAL ####[id number] [place] [address] Sodium [Moles/Vol] 142 mmol/L Normal 136 - 145 [facility] Comment on above: Performed By: #### R ENAL ####[id number] [place] [address] Urea nitrogen [Mass/Vol] 6 mg/dL Normal 6 - 23 [facility] Comment on above: Performed By: #### R ENAL ####[id number] [place] [address] Radiologyon 09-28-2021 XR Abdomen AP Normal MG-Gastroen terology-Rosendo hernandesell 6 I Work Phone: Rehab Note-attemptedon 09-28 Rehab Note-attempted Rehab: Info: Disciplinephysical occupational therapy professor Mode of Treatmentattempted Time IN15:30 Reason Treatment Not Performedpatient/family declined treatment, not feeling well Treatment Considerations/CommentsPt declined therapy at this time 2* increased fatigue, nausea. Pt stated NO! NO! NO! upon therapists arrival, even /c increased encouragement. Will reattempt as schedule allows. Short Term Goals: Bed Mobility: Date [id number] Bed Mobility: [place] Level Goalminimum assist (75% patients effort) Bed Mobility: Physical Assist Level Goal1-person assist, verbal cues Bed Mobility: Time Frame for Goal2 wks Transfer: Established [id number]-2635 Transfer: Transfer Type Lweqwur-rx-tjnso/chair-to -bed; lue-eq-tfngg/eanxy-bt-rvu Transfer: [place] Level Goalmoderate assist (50% patients effort) Transfer: Physical Assist Level Goal1-person assist; verbal cues Transfer: Assistive Device Goalrolling walker Transfer: Time Frame for Goal2 wks Gait: Established [id number]-1489 Gait: [place] Level Goalmoderate assist (50% patients effort) Gait: Physical Assist Level1-person assist; verbal cues Gait: Assistive Device Goalrolling walker Gait: Distance Goal15 feet Gait: Time Frame for Goal2 wks Balance: Established [id number]-Cus-2929 Balance: Goal DetailsSitting EOB 20 minutes with 0-1 UE support, SBA for static sitting, CGA for dynamic. Standing 1 minute with FWW and CGA Electronic Signatures: Yosi Campbell (PAPETERIE TABLE ASSEMBLER) (Signed 28-Sep-2021 15:32) Entered: Short Term Goals, Info Authored: Deon, Short Term Goals Boone Broussard (PT) (Signed 01-Oct-2021 09:01) Co-Signer: Short Term Goals, Info Last Updated: 01-Oct-2021 09:01 by Boone Broussard (PT) Normal [facility] Rehab Note-attempted Rehab: Info: Mode [...] 28-Sep-2021 15:28 by Silvana Marshall (OT) Normal [facility] Renal Function Panelon 09-28 Albumin [...] RACE VARIABLE FOR THE IDMS-TRACEABLE CREATININE METHODS.https://jasn.asnjournals.org/content/early /ASN.1688136693 TH ABDOMEN AP VIEWon 022 ABDOMEN AP VIEW Patient Name: MORALES ELE STUDY: ABDOMEN AP VIEW; 09/28/2021 1:22 pm INDICATION: Abd. dist. . COMPARISON: 09/27/2021 abdominal radiograph. ACCESSION NUMBER(S): [id number] ORDERING CLINICIAN: CONCETTA SHI FINDINGS: Two AP [...] as stated. This study was interpreted at [facility], [place], [place]. Electronically signed by: TANIKA SUTTON MD [facility] Consult-Gastroenterologyon 0 09-27-2021 Consult-Gastroenterology Service: [...] admission for post-op pain including a dilaudid RN INTAKE. Has been on scheduled bowel regimen with [...] penicillin: Unknown Objective: Objective Information: T PRBPSpO2 [id number]/70069% Date/Time09/27 4: 4: 4:001 4:00 Range (76 [...] C6-7 ACDFF, (more content not included)... Normal [facility] Daily Progress Note-Neurosur jinny 09-27-2021 Daily Progress Note-Neurosurgery Service: Neurosurgery Subjective Data: MORALES LEE is a 46 year old Female who is Hospital Day # 13 and POD #6 for posterior L4-L5 decompression;posterior L4-L5 arthrodesis. Objective Data: Objective Information: T PRBPSpO2 [id number]/31477% Date/Time09/26 11:0809/27 4: 4: 4: 4:00 Range(37C [...] 2021 6:00 am000 Sep 26, 2021 10:00 [id number] Sep 26, 2021 2:00 [id number] The Intake and Output Totals for the last 24 hours are: IntakeOutputNet [id number] Physical Exam by System: Neurological: A&Ox3 RUE [...] the note. I personally evaluated the patient [id number] Electronic Signatures: Chaparro Umana (Resident)) (Signed 27-Sep-2021 06:11) Authored: Service, Subjective Data, Objective Data, Assessment and Plan, Note Completion Natalia Palacios) (Signed 08-Oct-2021 14:31) Authored: Note Completion Co-Signer: Service, Subjective Data, Objective Data, Assessment and Plan, Note Completion Last Updated: 08-Oct-2021 14:31 by Natalia Palacios) Normal [facility] MAGNESIUMon 09-27-2021 Magnesium [Mass/Vol] 1.80 mg/dL Normal 1.60 - 2.40 [facility] Comment on above: Performed By: #### C BC #### [facility] [address] [place] [address] Magnesium, Serumon Magnesium [Mass/Vol] 1.80 mg/dL See Below MG-G astroen terraiza-Rosendo moura 6 [facility] Work Phone: Comment on above: Reference Range: 1.6 0 - 2.40 RENAL FUNCTION PANELon 09-27 Albumin [Mass/Vol] 3.3 g/dL Low 3.4 - 5.0 [facility] Comment on above: Performed By: #### R ENAL #### [facility] [address] [place] [address] Anion gap [Moles/Vol] 17 mmol/L Normal 10 - 20 [facility] Comment on above: Performed By: #### R ENAL #### [facility] [address] [place] [address] Calcium [Mass/Vol] 8.5 mg/dL Low 8.6 - 10.6 [facility] Comment on above: Performed By: #### R ENAL #### [facility] [address] [place] [address] Chloride [Moles/Vol] 98 mmol/L Normal 98 - 107 [facility] Comment on above: Performed By: #### R ENAL #### [facility] [address] [place] [address] Creatinine [Mass/Vol] 0.44 mg/dL Low 0.50 - 1.05 [facility] Comment on above: Performed By: #### R ENAL #### [facility] [address] [place] [address] eGFR FEMALE >90 Normal >90 [facility] Comment on above: Result Comment: CALC ULATIONS OF ESTIMATED GFR ARE PERFORMED USING THE 2020 CKD-EPI STUDY REFIT EQUATION WITHOUT THE RACE VARIABLE FOR THE IDMS-TRACEABLE CREATININE METHODS. https://jasn.asnjournals.org/content//ASN.252 7042829 Performed By: #### R ENAL #### [facility] [address] [place] [address] Glucose [Mass/Vol] 91 mg/dL Normal 74 - 99 [facility] Comment on above: Performed By: #### R ENAL #### [facility] [address] [place] [address] HCO3 (Bld) [Moles/Vol] 26 mmol/L Normal 21 - 32 [facility] Comment on above: Performed By: #### R ENAL #### [facility] [address] [place] [address] Phosphate [Mass/Vol] 4.0 mg/dL Normal 2.5 - 4.9 [facility] Comment on above: Result Comment: The performance characteristics of phosphorus testing in heparinized plasma have been validated by the individual laboratory site where testing is performed. Testing on heparinized plasma is not approved by the FDA; however, such approval is not necessary. Performed By: #### R ENAL #### [facility] [address] [place] [address] Potassium [Moles/Vol] 4.1 mmol/L Normal 3.5 - 5.3 [facility] Comment on above: Performed By: #### R ENAL #### [facility] [address] [place] [address] Sodium [Moles/Vol] 137 mmol/L Normal 136 - 145 [facility] Comment on above: Performed By: #### R ENAL #### [facility] [address] [place] [address] Urea nitrogen [Mass/Vol] 6 mg/dL Normal 6 - 23 [facility] Comment on above: Performed By: #### R ENAL #### [facility] [address] [place] [address] Radiologyon 09-27-2021 XR Abdomen AP Normal MG-Gastroen [...] RACE VARIABLE FOR THE IDMS-TRACEABLE CREATININE METHODS.https://jasn.asnjournals.org/content/early/ /ASN.1317369425 ABDOMEN AP VIEWon 022 ABDOMEN AP VIEW Patient Name: JESUS MORALES STUDY: ABDOMEN AP VIEW; 09/27/2021 2:33 am INDICATION: vomiting, constipation . COMPARISON: None. ACCESSION NUMBER(S): [id number] ORDERING CLINICIAN: FIDEL MACIEL FINDINGS: 2 AP [...] as stated. This study was interpreted at [place], [place]. Electronically signed by: DWIGHT MOY MD [facility] Daily Progress Note-Neurosjudy stearns 09-26-2021 Daily Progress Note-Neurosurgery Service: Neurosurgery Subjective Data: MORALES LEE is a 46 year old Female who is Hospital Day # 12 and POD #5 for posterior L4-L5 decompression;posterior L4-L5 arthrodesis. Objective Data: Objective Information: T PRBPSpO2 [id number]/8299% Date/Time09/25 17: 12:001 17: 17:08 Range (68 - 98 ) (21 - 23 ) (118 - 136 )/ (69 - 82 ) (92% - 99% ) Pain reported at 09/26 3:00: sleeping ---- Intake and Output ----- Mn/Dy/Year TimeIntakeOutputNet Sep 24, 2021 10:00 [id number] Sep 24, 2021 2:00 [id number] Sep 24, 2021 6:00 [id number] The Intake and Output Totals for the last 24 hours are: IntakeOutputNet [id number] Physical Exam by System: Neurological: A&Ox3 RUE [...] the note. I personally evaluated the patient [id number] Electronic Signatures: Jaya Mosquera ( (Resident)) (Signed 26-Sep-2021 07:08) Authored: Service, Subjective Data, Objective Data, Assessment and Plan, Note Completion Natalia Palacios) (Signed 08-Oct-2021 14:10) Authored: Note Completion Co-Signer: Service, Subjective Data, Objective Data, Assessment and Plan, Note Completion Last Updated: 08-Oct-2021 14:10 by Natalia Palacios) Normal [facility] Clinical Event Note-POD 4 / [...] plan of care. Electronic Signatures: Concetta Shi (FITNESS CENTER ATTENDANT-AIRPORT TOWER CONTROLLER) (Signed 25-Sep-2021 13:30) Authored: Clinical Event Note Last Updated: 25-Sep-2021 13:30 by Concetta Shi (FITNESS CENTER ATTENDANT-AIRPORT TOWER CONTROLLER) Normal [facility] Daily Progress Note-Nuha stearns 09-25-2021 Daily Progress Note-Neurosurgery Service: Neurosurgery Subjective Data: MORALES LEE is a 46 year old Female who is Hospital Day # 11 and POD #4 for posterior L4-L5 decompression;posterior L4-L5 arthrodesis. Objective Data: Objective Information: T PRBPSpO2 [id number]/6799% Date/Time09/24 16: 16:: 16:00 Range (68 - 78 ) (18 - 19 ) (102 - 117 )/ (57 - 73 ) (95% - 99% ) As of 24-Sep-2021 21:40:00, patient is on 2 L/min of oxygen via nasal cannula. Pain reported at 09/24 21:40: 8 = Severe ---- Intake and Output ----- Mn/Dy/[facility] Sep 23, 2021 10:00 [id number] Sep 23, 2021 6:00 [id number] The Intake and Output Totals for the last 24 hours are: [facility]Out[facility] [id number] Physical Exam by System: Neurological: A&Ox3 RUE [...] the note. I personally evaluated the patient [id number] Electronic Signatures: Lex Frederick) (Signed 25-Sep-2021 11:57) Authored: Note Completion Co-Signer: Service, Subjective Data, Objective Data, Assessment and Plan, Note Completion Alfredo Hendrickson (Resident)) (Signed 25-Sep-2021 05:56) Authored: Service, Subjective Data, Objective Data, Assessment and Plan, Note Completion Last Updated: 25-Sep-2021 11:57 by Lex Frederick) [facility] Rehab Tmvt-ze-tcxvrqlyk - co -tx /c OT to address multidiscipon 09-25-2021 Rehab Alxm-xz-errnlxaey - co-tx /c OT to address multidiscip Rehab: Info: Disciplinephysical occupational therapy professor Mode of Treatmentphysical therapy; co-treatment; co-tx /c OT to address multidisciplinary functional needs and maximize pt's safety. Time IN15:05 Time OUT15:59 Total Treatment [id number] Patient in ... at end of sessionbed, [...] scooting/bridging; rolling right; rolling left Roll Left [place] (Bed Mobility)maximum assist (25% patient effort); 2 person assist; verbal cues; nonverbal cues (demo/gesture) Roll Right [place] (Bed Mobility)maximum assist (25% patient effort); 2 person assist; verbal cues; nonverbal cues (demo/gesture) Scoot/Bridge [place] (Bed Mobility)maximum assist (25% patient effort); 2 person assist; nonverbal cues (demo/gesture); verbal cues Rnqown-jz-Flt [place] (Bed Mobility)maximum assist (25% patient effort); 2 person assist; verbal cues; nonverbal cues (demo/gesture) Hib-ym-Gxmkbg [place] (Bed Mobility)maximum assist (25% patient effort); 2 [...] unable to get to full standing. Sit-Stand [place] (Transfers)maximum assist (25% patient effort); verbal cues; nonverbal cues (demo/gesture); 2-3 persona assist Sit-Stand Assistive Device (Transfers)walker, front-wheeled Stand-Sit [place] (Transfers)maximum assist (25% patient effort); nonverbal cues [...] Score8 Short Term Goals: Bed Mobility: Date Aaijpymggdj46-Qai-9925 Bed Mobility: [place] Level Goalminimum assist (75% patients effort) Bed Mobility: Physical Assist Level Goal1-person assist, verbal cues Bed Mobility: Time Frame for Goal2 wks Transfer: Established [id number] Transfer: Transfer Type Vcsrwds-ab-ookmf/chair-to -bed; lzi-pp-epmbo/amdzg-ra-lwh Transfer: [place] Level Goalmoderate assist (50% patients effort) Transfer: Physical Assist Level Goal1-person assist; verbal cues Transfer: Assistive Device Goalrolling walker Transfer: Time Frame for Goal2 wks Gait: Established Gait: [place] Level Goalmoderate assist (50% patients effort) Gait: [...] goals is gradual Electronic Signatures: Yosi Campbell (PAPETERIE TABLE ASSEMBLER) (Signed 25-Sep-2021 16:59) Entered: Outcome Summary, Short Term Goals, Sensory, TherEx, Outcomes Tools, Info, Mobility/Tone Authored: Short Term Goals, Outcome Summary, TherEx, Outcomes Tools, Info, Mobility/Tone, Sensory Boone Broussard (PT) (Signed 01-Oct-2021 09:01) Co-Signer: Outcome Summary, Short Term Goals, Sensory, TherEx (more content not included)... Normal [facility] Rehab Note-cardiopulmonary physical therapist apy - Partial co-tx with PT to tue09-25-2021 Rehab Note-occupational therapy - Partial co-tx with PT to Rehab: Info: Disciplineoccupational therapist Mode of Treatmentoccupational therapy; Partial co-tx with PT to maximize pt's mobility and safety. Time IN15:03 Time OUT15:56 Total Treatment [id number] Patient in ... at end of sessionbed, [...] sit to supine; rolling right Roll Left [place] (Bed Mobility)Pt required assist to bend BLE at knees and to initiate turn at shoulders and hips, verbal cues for grasp on bed rail, technique, direction follow, and encouragement.; set up; verbal cues; maximum assist (25% patient effort); 2 person assist Roll Right [place] (Bed Mobility)Pt required assist to bend BLE at knees and to initiate turn at shoulders and hips, verbal cues for grasp on bed rail, technique, direction follow, and encouragement.; set up; verbal cues; maximum assist (25% patient effort); 2 person assist Scoot/Bridge [place] (Bed Mobility)boost HOB; set up; verbal cues; maximum assist (25% patient effort); 2 person assist Cimmay-no-Ice [place] (Bed Mobility)HOB elevated; set up; verbal cues; maximum assist (25% patient effort); 2 person assist Isn-qt-Yidunq [place] (Bed Mobility)HOB elevated; set up; verbal cues; maximum assist (25% patient effort); 2 person assist Assistive Device (Bed Mobility)bed rails; draw sheet Transfer Assessment/Interventionss it to stand transfer Sit-Stand [place] (Transfers)set up; verbal cues; maximum assist (25% patient effort); x 2-3 assist Safety Issues Impacting Function (Mobility)ability to follow commands; awareness of need for assistance; insight into deficits/self awareness; judgment; problem solving Impairments Impacting Function (Mobility)balance; cognition; endurance/activity tolerance; pain; strength; postural/trunk control ADL: BADL Assessment/Interventionto ileting; feeding; grooming; lower body dressing; upper body dressing; bathing [place] Level (Bathing)set up; verbal cues; moderate assist (50% patient effort); 1 person assist Comment (Bathing)anticipated due to impaired balance, strength, and pain. [place] Level (Upper Body Dressing)set up; verbal cues; moderate assist (50% patient effort) Comment (Upper Body Dressing)anticipated due to impaired balance, strength, and pain. [place] Level (Lower Body Dressing)don; socks; dependent (less than 25% patient effort) Position (Lower Body Dressing)supine [place] Level (Grooming)set up; contact guard Comment (Grooming)anticipated due to impaired balance, strength, and pain. [place] Level (Feeding)set up; modified independence Comment (Feeding)anticipated [place] Level (Toileting)dependent (less than 25% patient effort); purewick Impairments, BADL Safety/Performancebalance ; cognition; endurance/activity tolerance; strength; trunk/postural control Cognitive Impairments, BADL Safety/Performanceawarene ss, need for assistance; insight into deficits/self awareness; judgment; problem solving/reasoning Motor: Sitting, Static (Balance)good balance SBA Sitting, Dynamic (Balance)fair balance CGA Lrm-kj-Bpokg (Balance)poor balance Max A x 2-3 - attempted Standing, Static (Balance)unable to balance Standing, Dynamic (Balance)unable to balance Balance ActivitiesPt sat EOB ~30 minutes with SBA/CGA for safety. Pt demonstrated good sitting balance and trunk control. Pt attempted STS transfers 3x with (more content not included)... Normal [facility] Daily Progress Note-Nuha stearns 09-24-2021 Daily Progress Note-Neurosurgery Service: Neurosurgery Subjective Data: MORALES LEE is a 46 year old Female who is Hospital Day # 10 and POD #3 for posterior L4-L5 decompression;posterior L4-L5 arthrodesis. Objective Data: Objective Information: T PRBPSpO2 [id number]/5499% Date/Time09/23 20:4809/23 20: 20: 20: 20:48 Range(35.5C - 36.1C ) (66 - 75 ) (16 - 19 ) (90 - 118 )/ (54 - 75 ) (98% - 99% ) As of 23-Sep-2021 22:43:00, patient is on 2 L/min of oxygen via nasal cannula. ---- Intake and Output ----- Mn/Dy/Year TimeIntakeOutputNet Sep 22, 2021 10:00 [id number] Sep 22, 2021 2:00 [id number] Sep 22, 2021 6:00 [id number] The Intake and Output Totals for the last 24 hours are: IntakeOutputNet [id number] Physical Exam by System: Neurological: A&Ox3 RUE [...] the note. I personally evaluated the patient [id number] Comments/ Additional Findings Doing well. Kyphotic posture [...] ambulation and PT for now and intermediate project manager if the weakness fails to improve over [...] to the (more content not included)... Normal [facility] MAGNESIUMon 09-24-2021 Magnesium [Mass/Vol] 1.71 mg/dL Normal 1.60 - 2.40 [facility] Comment on above: Performed By: #### A FPA3 #### [facility] [address] [place] [address] Magnesium, Serumon Magnesium [Mass/Vol] 1.71 mg/dL See Below MG-G astroen terology-Rosendo moura 6 [facility] Work Phone: Comment on above: Reference Range: 1.6 0 - 2.40 RENAL FUNCTION PANELon 09-24 Albumin [Mass/Vol] 2.6 g/dL Low 3.4 - 5.0 [facility] Comment on above: Performed By: #### R ENAL ####[id number] [place] [address] Anion gap [Moles/Vol] 10 mmol/L Normal 10 - 20 [facility] Comment on above: Performed By: #### R ENAL ####[id number] [place] [address] Calcium [Mass/Vol] 7.7 mg/dL Low 8.6 - 10.6 [facility] Comment on above: Performed By: #### R ENAL ####[id number] [place] [address] Chloride [Moles/Vol] 108 mmol/L High 98 - 107 [facility] Comment on above: Performed By: #### R ENAL ####[id number] [place] [address] Creatinine [Mass/Vol] 0.39 mg/dL Low 0.50 - 1.05 [facility] Comment on above: Performed By: #### R ENAL ####[id number] [place] [address] eGFR FEMALE >90 Normal >90 [facility] Comment on above: Result Comment: CALC ULATIONS OF ESTIMATED GFR ARE PERFORMED USING THE 2020 CKD-EPI STUDY REFIT EQUATION WITHOUT THE RACE VARIABLE FOR THE IDMS-TRACEABLE CREATININE METHODS. https://jasn.asnjournals.org/content//ASN.675 0348416 Performed By: #### R ENAL ####[id number] [place] [address] Glucose [Mass/Vol] 92 mg/dL Normal 74 - 99 [facility] Comment on above: Performed By: #### R ENAL ####[id number] [place] [address] HCO3 (Bld) [Moles/Vol] 29 mmol/L Normal 21 - 32 [facility] Comment on above: Performed By: #### R ENAL ####[id number] [place] [address] Phosphate [Mass/Vol] 3.3 mg/dL Normal 2.5 - 4.9 [facility] Comment on above: Result Comment: The performance characteristics of phosphorus testing in heparinized plasma have been validated by the individual laboratory site where testing is performed. Testing on heparinized plasma is not approved by the FDA; however, such approval is not necessary. Performed By: #### R ENAL ####[id number] [place] [address] Potassium [Moles/Vol] 3.9 mmol/L Normal 3.5 - 5.3 [facility] Comment on above: Performed By: #### R ENAL ####[id number] [place] [address] Sodium [Moles/Vol] 143 mmol/L Normal 136 - 145 [facility] Comment on above: Performed By: #### R ENAL ####[id number] [place] [address] Urea nitrogen [Mass/Vol] 5 mg/dL Low 6 - 23 [facility] Comment on above: Performed By: #### R ENAL ####[id number] [place] [address] Rehab Note-attemptedon 09-24 Rehab Note-attempted Rehab: Info: Mode of Treatmentattempted Time IN15:00 Reason Treatment Not Performedpatient/family declined treatment; Pt declined participation in OT treatment stating she was on a very important call that she needed to take. Electronic Signatures: Silvana Marshall (OT) (Signed 24-Sep-2021 15:29) Authored: Info Last Updated: 24-Sep-2021 15:29 by Silvana Marshall (OT) Normal [facility] Rehab Note-physical therapyo n 09-24-2021 [...] 24-Sep-2021 15:07 by Boone Broussard (PT) Normal [facility] Renal Function Panelon 09-24 Albumin [...] RACE VARIABLE FOR THE IDMS-TRACEABLE CREATININE METHODS.https://jasn.asnjournals.org/content/early /ASN.9324100456 CBCon 09-23-2021 Erythrocyte distribution width (RBC) [Ratio] 13.1 % Normal 11.5 - 14.5 [facility] Comment on above: Performed By: #### C BC ####[id number] [place] [address] Hematocrit (Bld) [Volume fraction] 30.5 % Low 36.0 - 46.0 [facility] Comment on above: Performed By: #### C BC ####[id number] [place] [address] Hemoglobin (Bld) [Mass/Vol] 9.9 g/dL Low 12.0 - 16.0 [facility] Comment on above: Performed By: #### C BC ####[id number] [place] [address] MCHC (RBC) [Mass/Vol] 32.5 g/dL Normal 32.0 - 36.0 [facility] Comment on above: Performed By: #### C BC ####[id number] [place] [address] MCV (RBC) [Entitic vol] 92 fL Normal 80 - 100 [facility]3] Comment on above: Performed By: #### C BC ####[id number] [place] [address] NUCLEATED RBC 0.0 /100 WBC Normal 0.0-0.0 [facility] Comment on above: Performed By: #### C BC ####[id number] [place] [address] Platelets (Bld) [#/Vol] 244 10*3/uL Normal 150 - 450 [facility] Comment on above: Performed By: #### C BC ####[id number] [place] [address] RBC 3.33 x10E12/L Low 4.00 - 5.20 [facility] Comment on above: Performed By: #### C BC ####[id number] [place] [address] WBC (Bld) [#/Vol] 8.6 10*3/uL Normal 4.4 - 11.3 [facility] Comment on above: Performed By: #### C BC ####[id number] [place] [address] CBC AND DIFFERENTIALon 09-23 % AUTOMATED IMMATURE GRAN 0.4 % Normal 0.0 - 0.9 [facility] Comment on above: Result Comment: Jaleesa ture Granulocyte Count (IG) includes promyelocytes, myelocytes and metamyelocytes but does not include bands. Percent differential counts (%) should be interpreted in the context of the absolute cell counts (cells/L). Performed By: #### C BC #### [facility] [address] [place] [address] Basophils (Bld) [#/Vol] 0.03 10*3/uL Normal 0.00 - 0.10 [facility] Comment on above: Performed By: #### C BC #### [facility] [address] [place] [address] Basophils/100 WBC (Bld) 0.4 % Normal 0.0 - 2.[address] [facility] Comment on above: Performed By: #### C BC #### [facility] [address] [place] [address] Eosinophils (Bld) [#/Vol] 0.27 10*3/uL Normal 0.00 - 0.70 [facility] Comment on above: Performed By: #### C BC #### [facility] [address] [place] [address] Eosinophils/100 WBC (Bld) 3.6 % Normal 0.0 - 6.0 [facility] Comment on above: Performed By: #### C BC #### [facility] [address] [place] [address] Erythrocyte distribution width (RBC) [Ratio] 13.2 % Normal 11.5 - 14.5 [facility] Comment on above: Performed By: #### C BC #### [facility] [address] [place] [address] Hematocrit (Bld) [Volume fraction] 30.9 % Low 36.0 - 46.0 [facility] Comment on above: Performed By: #### C BC #### [facility] [address] [place] [address] Hemoglobin (Bld) [Mass/Vol] 10.4 g/dL Low 12.0 - 16.0 [facility] Comment on above: Performed By: #### C BC #### [facility] [address] [place] [address] Lymphocytes (Bld) [#/Vol] 2.41 10*3/uL Normal 1.20 - 4.80 [facility] Comment on above: Performed By: #### C BC #### [facility] [address] [place] [address] Lymphocytes/100 WBC (Bld) 31.9 % Normal 13.0 - 44.0 [facility] Comment on above: Performed By: #### C BC #### [facility] [address] [place] [address] MCHC (RBC) [Mass/Vol] 33.7 g/dL Normal 32.0 - 36.0 [facility] Comment on above: Performed By: #### C BC #### [facility] [address] [place] [address] MCV (RBC) [Entitic vol] 91 fL Normal 80 - [address] [facility] Comment on above: Performed By: #### C BC #### [facility] [address] [place] [address] Monocytes (Bld) [#/Vol] 0.49 10*3/uL Normal 0.10 - 1.00 [facility] Comment on above: Performed By: #### C BC #### [facility] [address] [place] [address] Monocytes/100 WBC (Bld) 6.5 % Normal 2.0 - 10.[address] [facility] Comment on above: Performed By: #### C BC #### [facility] [address] [place] [address] Neutrophils (Bld) [#/Vol] 4.32 10*3/uL Normal 1.20 - 7.70 [facility] Comment on above: Performed By: #### C BC #### [facility] [address] [place] [address] Neutrophils/100 WBC (Bld) 57.2 % Normal 40.0 - 80.0 [facility] Comment on above: Performed By: #### C BC #### [facility] [address] [place] [address] NUCLEATED RBC 0.0 /100 WBC Normal 0.0-0.0 [facility] Comment on above: Performed By: #### C BC #### [facility] [address] [place] [address] Platelets (Bld) [#/Vol] 228 10*3/uL Normal 150 - 450 [facility] Comment on above: Performed By: #### C BC #### [facility] [address] [place] [address] RBC 3.39 x10E12/L Low 4.00 - 5.20 [facility] Comment on above: Performed By: #### C BC #### [facility] [address] [place] [address] WBC (Bld) [#/Vol] 7.6 10*3/uL Normal 4.4 - 11.3 [facility] Comment on above: Performed By: #### C BC #### [facility] [address] [place] [address] Complete Blood Count + Diffe rentialon 09-23-2021 [...] % See Below MG-Gastroen terology-Rosendo ell 6 [facility] Work Phone: Comment on above: Reference [...] 10*3/uL 4.4 - 11.3 MG-Gas troen terology-Rosendo [facility] 6 [facility] Work Phone: Complete Blood Count + Differential 0.03 {x10E9/L} See Below MG-Gastroen terology-Rosendo ell 6 [facility] Work Phone: Comment on above: Reference Range: 0.0 0 - 0.10 Complete Blood Count + Differential 0.27 {x10E9/L} See Below MG-Gastroen terology-Rosendo ell 6 [facility] Work Phone: Comment on above: Reference Range: 0.0 0 - 0.70 Complete Blood Count + Differential 0.49 {x10E9/L} See Below MG-Gastroen terology-Rosendo ell 6 [facility] Work Phone: Comment on above: Reference Range: 0.1 0 - 1.00 Complete Blood Count + Differential 2.41 {x10E9/L} See Below MG-Gastroen terology-Rosendo [facility] 6 [facility] Work Phone: Comment on above: Reference Range: 1.2 0 - 4.80 Complete Blood Count + Differential 4.32 {x10E9/L} See Below MG-Gastroen terology-Rosendo ell 6 [facility] Work Phone: Comment on above: Reference Range: 1.2 0 - 7.70 Complete Blood Count + Differential 3.6 % 0.0 - 6.0 MG-Gastroen terology-Rosendo ell 6 [facility] Work Phone: Complete Blood Count + Differential 0.4 % 0.0 - 0.9 MG-Gastroen terology-Rosendo lwell 6 [facility] Work Phone: Comment on above: Immature [...] % below low threshold See Below MG-Gastroen terology-Rsoendo gretaell 6 I Work Phone: Comment on above: Reference Range: 36. 0 - 46.0 Hemoglobin (Bld) [Mass/Vol] 9.9 g/dL below low threshold See Below MG-Gastroen terology-Rosendo gretaell 6 [facility] Work Phone: Comment on above: Reference Range: 12. 0 - 16.0 MCHC (RBC) [Mass/Vol] 32.5 g/dL See Below MG[facility] Work Phone: Comment on above: Reference Range: 32. 0 - 36.0 MCV (RBC) [Entitic vol] 92 fL 80 - 100 M G-Gastroen carlos alberto-Rosendo [facility] 6 I Work Phone: Platelets (Bld) [#/Vol] 244 10*3/uL 150 - 450 MG-Gastroen carlos alberto-Rosendo gretaell 6 I Work Phone: RBC (Bld) [#/Vol] 3.33 {x10E12/L} below low threshold See Below MG-Gastroen terology-Rosendo gretaell 6 I Work Phone: Comment on above: Reference Range: 4.0 0 - 5.20 WBC (Bld) [#/Vol] 8.6 10*3/uL 4.4 - 11.3 MG-Gas troen terology-Rosendo [facility] 6 I Work Phone: MAGNESIUMon 09-23-2021 Magnesium [Mass/Vol] 1.68 mg/dL Normal 1.60 - 2.40 [facility] Comment on above: Performed By: #### C BC #### [facility] [address] [place] [address] Magnesium, Serumon Magnesium [Mass/Vol] 1.68 mg/dL See [...] (Advanced Practice Nurse) done by Ambrocio Izaguirre ([facility]) Discharge - Partial Reconciliation: 23-Sep-2021 13:21 by: Ambrocio Izaguirre ([facility]) Discharge - Partial Reconciliation: 24-Sep-2021 10:12 by: Ambrocio Izaguirre ([facility]) Discharge - Partial Reconciliation: 30-Sep-2021 14:12 by: Concetta Shi ([facility]) Discharge - Partial Reconciliation: 30-Sep-2021 14:14 by: Concetta Shi ([facility]) Discharge - Reconciliation: 30-Sep-2021 14:24 by: Concetta Shi ([facility]) Discharge - Reset to Incomplete: 02-Oct-2021 15:36 by: Ambrocio Izaguirre ([facility]) Discharge - Reconciliation: 02-Oct-2021 15:40 by: Ambrocio Izaguirre ([facility]) Discharge - Reset to Incomplete: 02-Oct-2021 15:57 by: Ambrocio Izaguirre ([facility]) Discharge - Reconciliation: 02-Oct-2021 15:58 by: Ambrocio Izaguirre ([facility]) [facility] DISCHARGE DateReconciliation Comment/ Additional Information [...] not required (more content not included)... Normal [facility] PATH REVIEW-IMMUNOHEMATOLOGY on 09-23-2021 PATH REV-IMMUNOHEMOTOL LETA Normal [facility] Comment on above: Result Comment: [...] FPA3 #### [facility] [address] [place] [address] RENAL FUNCTION PANELon 09-23 Albumin [Mass/Vol] 2.7 g/dL Low 3.4 - 5.0 [facility] Comment on above: Performed By: #### V FPA3 #### [facility] [address] [place] [address] Anion gap [Moles/Vol] 10 mmol/L Normal 10 - 20 [facility] Comment on above: Performed By: #### V FPA3 #### [facility] [address] [place] [address] Calcium [Mass/Vol] 7.9 mg/dL Low 8.6 - 10.6 [facility] Comment on above: Performed By: #### V FPA3 #### [facility] [address] [place] [address] Chloride [Moles/Vol] 108 mmol/L High 98 - 107 [facility] Comment on above: Performed By: #### V FPA3 #### [facility] [address] [place] [address] Creatinine [Mass/Vol] 0.39 mg/dL Low 0.50 - 1.05 [facility] Comment on above: Performed By: #### V FPA3 #### [facility] [address] [place] [address] eGFR FEMALE >90 Normal >90 [facility] Comment on above: Result Comment: CALC ULATIONS OF ESTIMATED GFR ARE PERFORMED USING THE 2020 CKD-EPI STUDY REFIT EQUATION WITHOUT THE RACE VARIABLE FOR THE IDMS-TRACEABLE CREATININE METHODS. https://jasn.asnjournals.org/content/early/ASN.975 4884671 Performed By: #### V FPA3 #### [facility] [address] [place] [address] Glucose [Mass/Vol] 87 mg/dL Normal 74 - 99 [facility] Comment on above: Performed By: #### V FPA3 #### [facility] [address] [place] [address] HCO3 (Bld) [Moles/Vol] 29 mmol/L Normal 21 - 32 [facility] Comment on above: Performed By: #### V FPA3 #### [facility] [address] [place] [address] Phosphate [Mass/Vol] 2.7 mg/dL Normal 2.5 - 4.9 [facility] Comment on above: Result Comment: The performance characteristics of phosphorus testing in heparinized plasma have been validated by the individual laboratory site where testing is performed. Testing on heparinized plasma is not approved by the FDA; however, such approval is not necessary. Performed By: #### V FPA3 #### [facility] [address] [place] [address] Potassium [Moles/Vol] 3.6 mmol/L Normal 3.5 - 5.3 [facility] Comment on above: Performed By: #### V FPA3 #### [facility] [place] [address] Sodium [Moles/Vol] 143 mmol/L Normal 136 - 145 [facility] Comment on above: Performed By: #### V FPA3 #### [facility] [address] [place] [address] Urea nitrogen [Mass/Vol] 9 mg/dL Normal 6 - 23 [facility] Comment on above: Performed By: #### V FPA3 #### [facility] [address] [place] [address] Rehab Note-individual therap yon 09-23-2021 Rehab Note-individual therapy Rehab: Info: Disciplinephysical therapist Mode of Treatmentphysical therapy; individual therapy Time IN14:50 Time OUT15:29 Total Treatment [id number] Patient in ... at end of sessionbed, [...] sit to supine; rolling right Roll Left [place] (Bed Mobility)verbal cues; maximum assist (25% patient effort); 1 person assist Roll Right [place] (Bed Mobility)maximum assist (25% patient effort); verbal cues; 1 person assist Scoot/Bridge [place] (Bed Mobility)verbal cues; maximum assist (25% patient effort); 2 person assist; boost HOB Gaowfp-wq-Bih [place] (Bed Mobility)verbal cues; maximum assist (25% patient effort); 1 person assist Zty-nc-Cvekwi [place] (Bed Mobility)set up; verbal cues; maximum assist (25% patient effort); 1 person assist Assistive Device (Bed Mobility)bed rails; draw sheet Transfer Assessment/Interventionss it to stand transfer; stand to sit transfer Sit-Stand [place] (Transfers)2 person assist; moderate assist (50% patient effort) Sit-Stand Assistive Device (Transfers)B arm-in-arm assist Stand-Sit [place] (Transfers)2 person assist; moderate assist (50% patient [...] 23-Sep-2021 15:50 by Boone Broussard (PT) Normal [facility] Renal Function Panelon 09-23 Albumin [...] Phone: Renal Function Panel >90 >90 [facility] moura 6 [facility] Work Phone: Comment on above: CALCULATIONS OF IVY MATED GFR ARE PERFORMED USING THE 2020 CKD-EPI STUDY REFIT EQUATION WITHOUT THE RACE VARIABLE FOR THE IDMS-TRACEABLE CREATININE METHODS.https://jasn.asnjournals.org/content/ /ASN.6529386382 ANTIBODY IDENT.on 09-22-2021 ANTIBODY IDENT. Anti-E Normal [facility] Comment on above: Performed By: #### V FPA3 #### [facility] [address] [place] [address] CBCon 09-22-2021 Erythrocyte distribution width (RBC) [Ratio] 13.2 % Normal 11.5 - 14.5 [facility] Comment on above: Performed By: #### V FPA3 #### [facility] [address] [place] [address] Hematocrit (Bld) [Volume fraction] 30.6 % Low 36.0 - 46.0 [facility] Comment on above: Performed By: #### V FPA3 #### [facility] [address] [place] [address] Hemoglobin (Bld) [Mass/Vol] 10.2 g/dL Low 12.0 - 16.0 [facility] Comment on above: Performed By: #### V FPA3 #### [facility] [address] [place] [address] MCHC (RBC) [Mass/Vol] 33.3 g/dL Normal 32.0 - 36.0 [facility] Comment on above: Performed By: #### V FPA3 #### [facility] [address] [place] [address] MCV (RBC) [Entitic vol] 91 fL Normal 80 - 100 [facility]3] Comment on above: Performed By: #### V FPA3 #### [facility] [address] [place] [address] NUCLEATED RBC 0.0 /100 WBC Normal 0.0-0.0 [facility] Comment on above: Performed By: #### V FPA3 #### [facility] [address] [place] [address] Platelets (Bld) [#/Vol] 215 10*3/uL Normal 150 - 450 [facility] Comment on above: Performed By: #### V FPA3 #### [facility] [address] [place] [address] RBC 3.37 x10E12/L Low 4.00 - 5.20 [facility] Comment on above: Performed By: #### V FPA3 #### [facility] [address] [place] [address] WBC (Bld) [#/Vol] 9.6 10*3/uL Normal 4.4 - 11.3 [facility] Comment on above: Performed By: #### V FPA3 #### [facility] [address] [place] [address] CBC AND DIFFERENTIALon 09-22 % AUTOMATED IMMATURE GRAN 0.4 % Normal 0.0 - 0.9 [facility] Comment on above: Result Comment: Jaleesa ture Granulocyte Count (IG) includes promyelocytes, myelocytes and metamyelocytes but does not include bands. Percent differential counts (%) should be interpreted in the context of the absolute cell counts (cells/L). Performed By: #### C BCDF ####[id number] [place] [address] Basophils (Bld) [#/Vol] 0.02 10*3/uL Normal 0.00 - 0.10 [facility] Comment on above: Performed By: #### C BCDF ####[id number] [place] [address] Basophils/100 WBC (Bld) 0.2 % Normal 0.0 - 2.[address] [facility] Comment on above: Performed By: #### C BCDF ####[id number] [place] [address] Eosinophils (Bld) [#/Vol] 0.04 10*3/uL Normal 0.00 - 0.70 [facility] Comment on above: Performed By: #### C BCDF ####[id number] [place] [address] Eosinophils/100 WBC (Bld) 0.4 % Normal 0.0 - 6.0 [facility] Comment on above: Performed By: #### C BCDF ####[id number] [place] [address] Erythrocyte distribution width (RBC) [Ratio] 13.2 % Normal 11.5 - 14.5 [facility] Comment on above: Performed By: #### C BCDF ####[id number] [place] [address] Hematocrit (Bld) [Volume fraction] 30.6 % Low 36.0 - 46.0 [facility] Comment on above: Performed By: #### C BCDF ####[id number] [place] [address] Hemoglobin (Bld) [Mass/Vol] 10.3 g/dL Low 12.0 - 16.0 [facility] Comment on above: Performed By: #### C BCDF ####[id number] [place] [address] Lymphocytes (Bld) [#/Vol] 2.19 10*3/uL Normal 1.20 - 4.80 [facility] Comment on above: Performed By: #### C BCDF ####[id number] [place] [address] Lymphocytes/100 WBC (Bld) 19.9 % Normal 13.0 - 44.0 [facility] Comment on above: Performed By: #### C BCDF ####[id number] [place] [address] MCHC (RBC) [Mass/Vol] 33.7 g/dL Normal 32.0 - 36.0 [facility] Comment on above: Performed By: #### C BCDF ####[id number] [place] [address] MCV (RBC) [Entitic vol] 90 fL Normal 80 - [address] [facility] Comment on above: Performed By: #### C BCDF ####[id number] [place] [address] Monocytes (Bld) [#/Vol] 0.71 10*3/uL Normal 0.10 - 1.00 [facility] Comment on above: Performed By: #### C BCDF ####[id number] [place] [address] Monocytes/100 WBC (Bld) 6.5 % Normal 2.0 - 10.0 [facility] Comment on above: Performed By: #### C BCDF ####[id number] [place] [address] Neutrophils (Bld) [#/Vol] 7.98 10*3/uL High 1.20 - 7.70 [facility] Comment on above: Performed By: #### C BCDF ####[id number] [place] [address] Neutrophils/100 WBC (Bld) 72.6 % Normal 40.0 - 80.0 [facility] Comment on above: Performed By: #### C BCDF ####[id number] [place] [address] NUCLEATED RBC 0.0 /100 WBC Normal 0.0-0.0 [facility] Comment on above: Performed By: #### C BCDF ####[id number] [place] [address] Platelets (Bld) [#/Vol] 242 10*3/uL Normal 150 - 450 [facility] Comment on above: Performed By: #### C BCDF ####[id number] [place] [address] RBC 3.39 x10E12/L Low 4.00 - 5.20 [facility] Comment on above: Performed By: #### C BCDF ####[id number] [place] [address] WBC (Bld) [#/Vol] 11.0 10*3/uL Normal 4.4 - 11.3 [facility] Comment on above: Performed By: #### C BCDF ####[id number] [place] [address] Complete Blood Count + Diffe vidya 09-22-2021 [...] with at bedside. She is currently on RN INTAKE for pain, and reports being tired this [...] this time. Objective: Objective Information: T PRBPSpO2 [id number]/5792% Date/Time09/22 0:001/18 8:001/18 8:001/18 8:001/18 8:00 Range(36.3C [...] Fair. Medications: Continuous Medications ------- 1. HYDROmorphone RN INTAKE 25 mg/ NaCL 0.9% 50 mL: 2.6 mg/hr IV RN INTAKE 2. Sodium Chloride 0.9% Infusion: 1000 mL [...] from Suboxone (more content not included)... Normal [facility] Daily Progress Note-Nuha stearns 09-22-2021 Daily Progress Note-Neurosurgery Service: Neurosurgery Subjective Data: MORALES LEE is a 46 year old Female who is Hospital Day # 8 and POD #1 for posterior L4-L5 decompression;posterior L4-L5 arthrodesis. Objective Data: Objective Information: T PRBPSpO2 [id number]/5895% Date/Time09/22 0:00118 0:00118 0:00118 0:00118 0:00 Range(36.2C - 36.8C ) (82 - 109 ) (12 - 20 ) (85 - 132 )/ (49 - 89 ) (94% - 100% ) As of 21-Sep-2021 17:00:00, patient is on 4 L/min of oxygen via nasal cannula. Pain reported at 09/21 16:33: 5 = Moderate ---- Intake and Output ----- Mn/Dy/Year TimeIntakeOutputNet Sep 20, 2021 10:00 [id number] Sep 20, 2021 6:00 [id number] The Intake and Output Totals for the last 24 hours are: IntakeOutputNet [id number] Physical Exam by System: Neurological: A&Ox3 RUE [...] Chronic pain recs- intra-op ketamine, meloxicam post-op, RN INTAKE until good PT eval, Suboxone as OP COWS psych recs alvares for retention SCD's, [facility] Attestation: Note Completion: I [...] the note. I personally evaluated the patient [id number] Electronic Signatures: Fidel Maciel (Resident)) (Signed 22-Sep-2021 00:35) Authored: Service, Subjective Data, Objective Data, Assessment and Plan, Note Completion Lex Frederick) (Signed 22-Sep-2021 10:31) Authored: Note Completion Co-Signer: Service, Subjective Data, Objective Data, Assessment and Plan, Note Completion Last Updated: 22-Sep-2021 10:31 by Lex Frederick) [facility] Discharge [id number] 022 Discharge Profile2 Discharge Orders: Anticipated Discharge Date: Anticipated Discharge [id number] Problem List: Additional Dx: Spinal stenosis of [...] Please call your Neurosurgeon's office (Dr. Frederick [phone]) if you have any questions. -If you [...] or twist. Instead, bend at knees to steel pickler objects. Wound Care: Inspect your incision daily [...] taking Acetamin (more content not included)... Normal [facility] LACTATEon 09-22-2021 Lactate [Moles/Vol] 0.8 mmol/L Normal 0.4 - 2.0 [facility] Comment on above: Result Comment: Trina puncture immediately after or during the administration of Metamizole may lead to falsely low results. Testing should be performed immediately prior to Metamizole dosing. Performed By: #### C BC #### [facility] [address] [place] [address] Laboratory - Hematology and Cell countson 09-22-2021 [...] threshold See Below MG-Gastroen terology-[place] 6 [facility] Work Phone: Comment on above: Reference Range: 12. 0 - 16.0 MCHC (RBC) [Mass/Vol] 33.3 g/dL See Below MG- Gastroen terology-[facility] 6 I Work Phone: Comment on above: Reference Range: 32. 0 - 36.0 MCV (RBC) [Entitic vol] 91 fL 80 - 100 M G-Gastroen terology-[facility] 6 [facility] Work Phone: Platelets (Bld) [#/Vol] 215 10*3/uL 150 - 450 MG-Gastroen terology-[facility] 6 [facility] Work Phone: RBC (Bld) [#/Vol] 3.37 {x10E12/L} below low threshold See Below MG-Gastroen terology-[place] 6 [facility] Work Phone: Comment on above: Reference Range: 4.0 0 - 5.20 WBC (Bld) [#/Vol] 9.6 10*3/uL 4.4 - 11.3 MG-Gas troen terology-[facility] 6 [facility] Work Phone: Lactate, Levelon 09-22-2021 Lactate [Moles/Vol] 0.8 mmol/L 0.4 - 2.0 MG-Ga stroen terology-[facility] 6 [facility] Work Phone: Comment on above: Venipuncture [...] safety. Time IN10:50 Time OUT11:40 Total Treatment [id number] Patient in ... at end of sessionbed, 3 railings up; alarm on Communicated with ... at end of sessionbedside nurse Patient Effortgood Symptoms Noted During/After Treatmentfatigue; increased pain Patient Profile Reviewedyes Onset of Illness/Injury or Date of [id number] Reason for Referral-09/18/21: s/p exploration of spinal [...] EOB sitting. Pertinent History of Current Functional Xuzmrvw89 y/o with hx of HTN, C6-7 ACDF, [...] TubesIV; triple lumen; telemetry; urethral catheter indwelling; RN INTAKE pump, DAVOL drain, wound vac O2 Deliverynasal cannula; 4L Pre Treatment Patient Positionsupine Pre Treatment Blood Pressure Ksbswypi26 mmHg Pre Treatment Diastolic (mm Hg)46 mmHg Pre Treatment Heart Rate (beats/min)67 Pre Treatment Respiratory Rate (breaths/min)19 Pre Treatment SpO2 (%)96 % Pre Treatment Oxygen Deliverysupplemental O2 Pre Treatment CommentsMAP 56 During Treatment Patient Positionsitting During Treatment Blood Pressure Bkzrwvyi40 mmHg During Treatment Diastolic (mm Hg)77 mmHg [...] to sit; sit to supine Roll Left [place] (Bed Mobility)set up; verbal cues; 2 person assist; Pt required assist to bend BLE at (more content not included)... Normal [facility] PATH REVIEW-IMMUNOHEMATOLOGY on 09-22-2021 PATH REV-IMMUNOHEMOTOL ZURDO Normal [facility] Comment on above: Result Comment: [...] THIS PATIENT. Performed By: #### C #### [facility] [address] [place] [address] PT Evaluation x0-sh-tozfperx t - co-treatment with OT to maxion 09-22-2021 PT Evaluation x7-vt-msbwfpuys - co-treatment with OT to [facility] Rehab: Info: Mode of Treatmentphysical therapy; co-treatment; co-treatment with OT to maximize safety, mobility and ADL participation Time IN10:50 Time OUT11:40 Total Treatment Cwesbct44 Patient in ... at end of sessionbed, 3 railings up; alarm on Communicated with ... at end of sessionbedside nurse Patient Effortgood Symptoms Noted During/After Treatmentfatigue; increased pain Patient Profile Reviewedyes Onset of Illness/Injury or Date of [id number]-Bzd-8677 Reason for Referral-09/18/21: s/p exploration of spinal [...] TubesIV; triple lumen; telemetry; urethral catheter indwelling; RN INTAKE pump, DAVOL drain, wound vac O2 Deliverynasal cannula; 4L Pre Treatment Patient Positionsupine Pre Treatment Blood Pressure Refcqmck23 mmHg Pre Treatment Diastolic (mm Hg)46 mmHg Pre Treatment Heart Rate (beats/min)67 Pre Treatment SpO2 (%)96 % Pre Treatment Oxygen Deliverysupplemental O2 During Treatment Patient Positionsitting During Treatment Blood Pressure Pqfqmmbd20 mmHg During Treatment Diastolic (mm Hg)77 mmHg [...] sit to supine; rolling right Roll Left [place] (Bed Mobility)verbal cues; 2 person assist; Pt required assist to bend BLE at knees and to initiate turn at shoulders and hips, verbal cues for grasp on bed rail, technique, direction follow, and encouragement.; maximum assist (25% patient effort) Roll Right [place] (Bed Mobility)2 person assist; maximum assist (25% patient effort); verbal cues Scoot/Bridge [place] (Bed Mobility)verbal cues; maximum assist (25% patient effort); 2 person assist; boost HOB Cpsgvm-hs-Ngo [place] (Bed Mobility)verbal cues; maximum assist (25% patient effort); 1 person assist Lxa-lp-Kzfgas [place] (Bed Mobility)set up; verbal cues; maximum assist (25% patient effort); 1 person assist Assistive Device (Bed Mobility)bed rails; draw sheet Impairments Impacting Function (Mobility)balance; cognition; endurance/activity tolerance; pain; strength; postural/trunk control; motor control Motor: Sitting, Static (Balance)SBA Sitting, Dynamic (Balance)CGA Hfb-nr-Xocnv (Balance)MADELIN this visit. Pt hypotensive Sensory: Pre-Treatment Pain Rating7/10 Post-Treatment Pain Rating7/10 Comment, Pre/Post Treatment PainPt reported pain throughout buttocks and back, utilized RN INTAKE pump as needed. Pain LimitationFunctional mobility limited due pain; ADLs/IADLs limited due to pain; Participation limited by pain; RN or team was notified of limitations due to p (more content not included)... Normal [facility] RENAL FUNCTION PANELon 09-22 Albumin [Mass/Vol] 2.7 g/dL Low 3.4 - 5.0 [facility] Comment on above: Performed By: #### C BC #### [facility] [address] [place] [address] Anion gap [Moles/Vol] 10 mmol/L Normal 10 - 20 [facility] Comment on above: Performed By: #### C BC #### [place] [address] [place] [address] Calcium [Mass/Vol] 7.8 mg/dL Low 8.6 - 10.6 [facility] Comment on above: Performed By: #### C BC #### [facility] [address] [place] [address] Chloride [Moles/Vol] 105 mmol/L Normal 98 - 107 [facility] Comment on above: Performed By: #### C BC #### [facility] [address] [place] [address] Creatinine [Mass/Vol] 0.49 mg/dL Low 0.50 - 1.05 [facility] Comment on above: Performed By: #### C BC #### [place] [address] [place] [address] eGFR FEMALE >90 Normal >90 [facility] Comment on above: Result Comment: CALC ULATIONS OF ESTIMATED GFR ARE PERFORMED USING THE 2020 CKD-EPI STUDY REFIT EQUATION WITHOUT THE RACE VARIABLE FOR THE IDMS-TRACEABLE CREATININE METHODS. https://jasn.asnjournals.org/content/early//ASN.217 7844244 Performed By: #### C BC #### [facility] [address] [place] [address] Glucose [Mass/Vol] 93 mg/dL Normal 74 - 99 [facility] Comment on above: Performed By: #### C BC #### [facility] [address] [place] [address] HCO3 (Bld) [Moles/Vol] 29 mmol/L Normal 21 - 32 [facility] Comment on above: Performed By: #### C BC #### [facility] [address] [place] [address] Phosphate [Mass/Vol] 2.4 mg/dL Low 2.5 - 4.9 [facility] Comment on above: Result Comment: The performance characteristics of phosphorus testing in heparinized plasma have been validated by the individual laboratory site where testing is performed. Testing on heparinized plasma is not approved by the FDA; however, such approval is not necessary. Performed By: #### C BC #### [facility] [address] [place] [address] Potassium [Moles/Vol] 4.3 mmol/L Normal 3.5 - 5.3 [facility] Comment on above: Performed By: #### C BC #### [facility] [address] [place] [address] Sodium [Moles/Vol] 140 mmol/L Normal 136 - 145 [facility] Comment on above: Performed By: #### C BC #### [facility] [address] [place] [address] Urea nitrogen [Mass/Vol] 9 mg/dL Normal 6 - 23 [facility] Comment on above: Performed By: #### C BC #### [facility] [address] [place] [address] Renal Function Panelon 09-22 Albumin BCP dye [...] - 5.3 MG- Gastroen terology-[place] 6 [facility] Work Phone: Sodium [Moles/Vol] 140 mmol/L 136 - 145 MG-Gas troen terology-[place] 6 I Work Phone: Urea nitrogen [Mass/Vol] 9 mg/dL 6 - 23 MG-Gastroen terology-[place] 6 I Work Phone: Renal Function Panel >90 >90 MG-G astroen terology-[place] 6 [facility] Work Phone: Comment on above: CALCULATIONS OF IVY MATED GFR ARE PERFORMED USING THE 2020 CKD-EPI STUDY REFIT EQUATION WITHOUT THE RACE VARIABLE FOR THE IDMS-TRACEABLE CREATININE METHODS.https://jasn.asnjournals.org/content/ /ASN.8379619401 UA MICROSCOPICon 09-22-2021 RBC 6 /HPF Abnormal 0-5 [facility] Comment on above: Performed By: #### C BC #### [facility] [address] [place] [address] SQUAMOUS EPITH. CELLS 1 /HPF Normal [facility] Comment on above: Performed By: #### C BC #### [facility] [address] [place] [address] WBC 8 /HPF Abnormal 0-5 [facility] Comment on above: Performed By: #### C BC #### [facility] [address] [place] [address] URINALYSIS WITH CULTURE IF I NDICATEDon 09-22-2021 Appearance (U) CLEAR Normal CLEAR [facility] Comment on above: Performed By: #### U ARFX ####[id number] [place] [address] Bilirubin Ql (U) Negative Normal NEGATIVE [facility] Comment on above: Performed By: #### U ARFX ####[id number] [place] [address] Color (U) MIRANDA Normal STRAW,YELL OW [facility] Comment on above: Performed By: #### U ARFX ####[id number] [place] [address] Glucose Ql (U) Negative Normal NEGATIVE [facility] Comment on above: Performed By: #### U ARFX ####[id number] [place] [address] Hemoglobin Ql (U) Negative Normal NEGATIVE [facility] Comment on above: Performed By: #### U ARFX ####[id number] [place] [address] Ketones Ql (U) 20 (1+) Abnormal NEGATIVE [facility] Comment on above: Performed By: #### U ARFX ####[id number] [place] [address] Leukocyte esterase Test strip Ql (U) Negative Normal NEGATIVE [facility] Comment on above: Performed By: #### U ARFX ####[id number] [place] [address] Nitrite Ql (U) Negative Normal NEGATIVE [facility] Comment on above: Performed By: #### U ARFX ####[id number] [place] [address] pH (U) 5.0 [pH] Normal 5.0 - 8.0 [facility] Comment on above: Performed By: #### U ARFX ####[id number] [place] [address] Protein Ql (U) 30 (1+) Abnormal NEGATIVE [facility] Comment on above: Performed By: #### U ARFX ####[id number] [place] [address] Specific gravity (U) [Rel density] 1.040 High 1.005 - 1.035 [facility] Comment on above: Performed By: #### U ARFX ####[id number] [place] [address] Urobilinogen (U) [Mass/Vol] 2.0 mg/dL High 0.0 - 1.9 [facility] Comment on above: Result Comment: [...] positive urobilinogen. Performed By: #### U ARFX ####[id number] [place] [address] Lab Specimen Source Normal [facility] Comment on above: Performed By: #### U ARFX ####[id number] [place] [address] Performed By: #### C BC #### [facility] [address] [place] [address] Color (U) MIRANDA See Below MG-Gastroen terology-Rosendo [...] CULTURE,BACTERIALon URINE CULTURE,BACTERIAL PATIENT: Fay LEE LOCATION: [place] [address] BILL#: [id number] : 71 AGE: SEX: F ORDERED BY: AMBROCIO IZAGUIRRE SOURCE: URINE COLLECTED: 09/22/21 12:59 ANTIBIOTICS AT [facility].: RECEIVED : 09/22/21 14:59 SITE: R E S U L T S URINE CULTURE,BACTERIAL FINAL 09/23/21 09:04 NO SIGNIFICANT GROWTH. Normal [facility] Comment on above: Performed By: #### C BC #### [facility] [address] [place] [address] Urinalysis, Microscopicon Urinalysis, Microscopic 1 {/HPF} M G-Gastroen terology-[place] 6 I Work Phone: Urinalysis, Microscopic 6 {/HPF} Abnormal 0-5 M G-Gastroen terology-[place] 6 I Work Phone: Urinalysis, Microscopic 8 {/HPF} Abnormal 0-5 M G-Gastroen terology-[place] 6 I Work Phone: Comment on above: SOURCE: CBCon 09-21-2021 Erythrocyte distribution width (RBC) [Ratio] 13.1 % Normal 11.5 - 14.5 [facility] Comment on above: Performed By: #### R ENAL #### [facility] [address] [place] [address] Hematocrit (Bld) [Volume fraction] 34.5 % Low 36.0 - 46.0 [facility] Comment on above: Performed By: #### R ENAL #### [facility] [address] [place] [address] Hemoglobin (Bld) [Mass/Vol] 11.4 g/dL Low 12.0 - 16.0 [facility] Comment on above: Performed By: #### R ENAL #### [facility] [address] [place] [address] MCHC (RBC) [Mass/Vol] 33.0 g/dL Normal 32.0 - 36.0 [facility] Comment on above: Performed By: #### R ENAL #### [facility] [address] [place] [address] MCV (RBC) [Entitic vol] 91 fL Normal 80 - [address] [facility] Comment on above: Performed By: #### R ENAL #### [facility] [address] [place] [address] NUCLEATED RBC 0.0 /100 WBC Normal 0.0-0.0 [facility] Comment on above: Performed By: #### R ENAL #### [facility] [address] [place] [address] Platelets (Bld) [#/Vol] 269 10*3/uL Normal 150 - 450 [facility] Comment on above: Performed By: #### R ENAL #### [facility] [address] [place] [address] RBC 3.81 x10E12/L Low 4.00 - 5.20 [facility] Comment on above: Performed By: #### R ENAL #### [facility] [address] [place] [address] WBC (Bld) [#/Vol] 14.6 10*3/uL High 4.4 - 11.3 [facility] Comment on above: Performed By: #### R ENAL #### [facility] [address] [place] [address] Erythrocyte distribution width (RBC) [Ratio] 13.2 % Normal 11.5 - 14.5 [facility] Comment on above: Performed By: #### R ENAL #### [facility] [address] [place] [address] Hematocrit (Bld) [Volume fraction] 35.8 % Low 36.0 - 46.0 [facility] Comment on above: Performed By: #### R ENAL #### [facility] [address] [place] [address] Hemoglobin (Bld) [Mass/Vol] 11.9 g/dL Low 12.0 - 16.0 [facility] Comment on above: Performed By: #### R ENAL #### [facility] [address] [place] [address] MCHC (RBC) [Mass/Vol] 33.2 g/dL Normal 32.0 - 36.0 [facility] Comment on above: Performed By: #### R ENAL #### [facility] [address] [place] [address] MCV (RBC) [Entitic vol] 91 fL Normal 80 - [address] [facility] Comment on above: Performed By: #### R ENAL #### [facility] [address] [place] [address] NUCLEATED RBC 0.0 /100 WBC Normal 0.0-0.0 [facility] Comment on above: Performed By: #### R ENAL #### [facility] [address] [place] [address] Platelets (Bld) [#/Vol] 215 10*3/uL Normal 150 - 450 [facility] Comment on above: Performed By: #### R ENAL #### [facility] [address] [place] [address] RBC 3.93 x10E12/L Low 4.00 - 5.20 [facility] Comment on above: Performed By: #### R ENAL #### [place] [address] [place] [address] WBC (Bld) [#/Vol] 14.8 10*3/uL High 4.4 - 11.3 [facility] Comment on above: Performed By: #### R ENAL #### [facility] [address] [place] [address] Daily Progress Note-Neurosjudy stearns 09-21-2021 Daily Progress Note-Neurosurgery Service: Neurosurgery Subjective Data: MORALES LEE is a 46 year old Female who is Hospital Day # 7 and POD #3 for 1. Exploration of spinal fusion;2. Reduction of L4/5 dislocation;2. L5-pelvis instrumented fusion with posterolateral arthrodesis;4. Extension of instrumentation with multiple kwame construct and side connectors. Objective Data: Objective Information: T PRBPSpO2 Value37.838264038/8495% Date/Time09/20 15: 4: 4: 4: 4:00 Range(36.9C [...] ----- Mn/Dy/Year TimeIntakeOutputNet Sep 19, 2021 10:00 [id number] Sep 19, 2021 6:00 [id number] The Intake and Output Totals for the last 24 hours are: [id number] Physical Exam by System: Neurological: A&Ox3 RUE [...] Chronic pain recs- intra-op ketamine, meloxicam post-op, RN INTAKE until good PT eval, Suboxone as OP [...] the following: I personally evaluated the patient [id number] Comments/ Additional Findings The patient has been [...] MRI was performed and 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 Normal [facility] Laboratory - Blood bankon ABO [...] {x10E12/L} below low threshold See Below MG-Gastroen terology-[place] 6 I [...] lumbar spine September 18, 2021 ACCESSION NUMBER(S): [id number]; [id number] ORDERING CLINICIAN: DEVANTE NUNEZ TECHNIQUE: Sagittal axial [...] Electronically signed by: NATALIA WALL DO Normal [facility] NR MRI T-SPINE WOon 09-21-19 NR MRI T-SPINE WO Patient Name: MORALES LEE STUDY: MRI T-SPINE WO; MRI L-SPINE WO; 09/20/2021 10:40 pm; 09/20/2021 10:42 pm INDICATION: postop foot weakness, Lie Flat: Yes, Pre Med: No . COMPARISON: MRI December 24, [address] of the lumbar spine September 18, 2021 ACCESSION NUMBER(S): [id number]; [id number] ORDERING CLINICIAN: DEVANTE NUNEZ TECHNIQUE: Sagittal axial [...] Electronically signed by: NATALIA WALL DO Normal [facility] No Panel Informationon 09-21 0.0 [...] Preop Checklist Preop Checklist: Preop Checklist: Arrival [id number] Arrival Time11:00 Procedure Typere-exploration of spine Temperature C36.2 degrees C Temperature F97.1 degrees F Heart Rate91 beats per minute Respiratory Rate18 breath per minute Blood Pressure Tturnnml823 mm/Hg Blood Pressure Jefbrqevu54 mm/Hg COVID 19 Results in Last 7 [...] 21-Sep-2021 11:17 by Linh Buchanan (RN) Normal [facility] REQUEST-LEUKOREDUCED RED ANJU LSon 09-21-2021 REQUEST-LEUKOREDUCED RED CELLS ORDER RECD Normal [facility] Comment on above: Performed By: #### A FPA3 #### [facility] [address] [place] [address] TYPE + SCREENon 09-21-2021 ABO TYPE O Normal [facility] Comment on above: Performed By: #### A FPA3 #### [facility] [address] [place] [address] RH TYPE Positive Normal [facility] Comment on above: Performed By: #### A FPA3 #### [facility] [address] [place] [address] ABO TYPE Canceled Normal [facility] Comment on above: Order Comment: VENECIA ESPINO, 09/21/2021 05:08TEST TYPE + SCREEN WAS CANCELLED, 09/21/2021 05:06 NO PHLEB ID ON TUBE. Result Comment: EULA ESPINO, 09/21/2021 05:08 Performed By: #### A FPA3 #### [facility] [address] [place] [address] RH TYPE Canceled Normal [facility] Comment on above: Order Comment: VENECIA ESPINO, 09/21/2021 05:08TEST TYPE + SCREEN WAS CANCELLED, 09/21/2021 05:06 NO PHLEB ID ON TUBE. Result Comment: CALL ED RN AFSANEH ESPINO, 09/21/2021 05:08 Performed By: #### A FPA3 #### [facility] [address] [place] [address] CBCon 09-20-2021 Erythrocyte distribution width (RBC) [Ratio] 13.2 % Normal 11.5 - 14.5 [facility] Comment on above: Performed By: #### C BC #### [facility] [address] [place] [address] Hematocrit (Bld) [Volume fraction] 30.8 % Low 36.0 - 46.0 [facility] Comment on above: Performed By: #### C BC #### [facility] [address] [place] [address] Hemoglobin (Bld) [Mass/Vol] 9.8 g/dL Low 12.0 - 16.0 [facility] Comment on above: Performed By: #### C BC #### [facility] [address] [place] [address] MCHC (RBC) [Mass/Vol] 31.8 g/dL Low 32.0 - 36.0 [facility] Comment on above: Performed By: #### C BC #### [facility] [address] [place] [address] MCV (RBC) [Entitic vol] 93 fL Normal 80 - 100 [facility]3] Comment on above: Performed By: #### C BC #### [facility] [address] [place] [address] NUCLEATED RBC 0.0 /100 WBC Normal 0.0-0.0 [facility] Comment on above: Performed By: #### C BC #### [facility] [address] [place] [address] Platelets (Bld) [#/Vol] 224 10*3/uL Normal 150 - 450 [facility] Comment on above: Performed By: #### C BC #### [facility] [address] [place] [address] RBC 3.32 x10E12/L Low 4.00 - 5.20 [facility] Comment on above: Performed By: #### C BC #### [facility] [address] [place] [address] WBC (Bld) [#/Vol] 12.1 10*3/uL High 4.4 - 11.3 [facility] Comment on above: Performed By: #### C BC #### [facility] [address] [place] [address] Daily Progress Note-Neurosjudy stearns 09-20-2021 Daily Progress Note-Neurosurgery Service: Neurosurgery Subjective Data: MORALES LEE is a 46 year old Female who is Hospital Day # 6 and POD #2 for 1. Exploration of spinal fusion;2. Reduction of L4/5 dislocation;2. L5-pelvis instrumented fusion with posterolateral arthrodesis;4. Extension of instrumentation with multiple kwame construct and side connectors. Objective Data: Objective Information: T PRBPSpO2 [id number]/5095% Date/Time09/19 16: 1: 16: 1:341 1:34 Range(36.7C - 36.7C ) (84 - 110 ) (18 - 18 ) (82 - 118 )/ (50 - 97 ) (94% - 97% ) As of 19-Sep-2021 08:00:00, patient is on 2 L/min of oxygen via nasal cannula. ---- Intake and Output ----- Mn/Dy/[facility] 18, 2021 10:00 [id number] The Intake and Output Totals for the [...] chronic pain recs- intra-op ketamine, meloxicam post-op, RN INTAKE until good PT eval, Suboxone as OP [...] Updated: 21-Sep-2021 11:28 by Perez Carlisle) Normal [facility] Laboratory - Hematology and Cell [...] 20-Sep-2021 12:25 by Carole Carlos (OT) Normal [facility] PT Evaluation v2-attemptedon 09-20-2021 PT Evaluation v2-attempted Rehab: Info: Mode of Treatmentattempted Time IN12:00 Evaluation Not PerformedPer RN pt not appropriate for therapy, pt continues to have low BP and plan to receive blood, will hold and reattempt as appropriate Electronic Signatures: Kaykay Yoo (PT) (Signed 20-Sep-2021 12:42) Authored: Info Last Updated: 20-Sep-2021 12:42 by Kaykay Yoo (PT) Normal [facility] REQUEST-LEUKOREDUCED RED ANJU LSon 09-20-2021 REQUEST-LEUKOREDUCED RED CELLS ORDER RECD Normal [facility] Comment on above: Performed By: #### R ENAL #### [facility] [address] [place] [address] CBCon 09-19-2021 Erythrocyte distribution width (RBC) [Ratio] 12.4 % Normal 11.5 - 14.5 [facility] Comment on above: Performed By: #### R ENAL #### [facility] [address] [place] [address] Hematocrit (Bld) [Volume fraction] 38.3 % Normal 36.0 - 46.0 [facility] Comment on above: Performed By: #### R ENAL #### [facility] [address] [place] [address] Hemoglobin (Bld) [Mass/Vol] 13.4 g/dL Normal 12.0 - 16.0 [facility] Comment on above: Performed By: #### R ENAL #### [facility] [address] [place] [address] MCHC (RBC) [Mass/Vol] 35.0 g/dL Normal 32.0 - 36.0 [facility] Comment on above: Performed By: #### R ENAL #### [facility] [address] [place] [address] MCV (RBC) [Entitic vol] 85 fL Normal 80 - [address] [facility] Comment on above: Performed By: #### R ENAL #### [facility] [address] [place] [address] NUCLEATED RBC 0.0 /100 WBC Normal 0.0-0.0 [facility] Comment on above: Performed By: #### R ENAL #### [facility] [address] [place] [address] Platelets (Bld) [#/Vol] 326 10*3/uL Normal 150 - 450 [facility] Comment on above: Performed By: #### R ENAL #### [facility] [address] [place] [address] RBC 4.51 x10E12/L Normal 4.00 - 5.20 [facility] Comment on above: Performed By: #### R ENAL #### [facility] [address] [place] [address] WBC (Bld) [#/Vol] 20.5 10*3/uL High 4.4 - 11.3 [facility] Comment on above: Performed By: #### R ENAL #### [facility] [address] [place] [address] CBC AND DIFFERENTIALon 09-19 % AUTOMATED IMMATURE GRAN 0.6 % Normal 0.0 - 0.9 [facility] Comment on above: Result Comment: Jaleesa ture Granulocyte Count (IG) includes promyelocytes, myelocytes and metamyelocytes but does not include bands. Percent differential counts (%) should be interpreted in the context of the absolute cell counts (cells/L). Performed By: #### V FPA3 #### [facility] [address] [place] [address] Basophils (Bld) [#/Vol] 0.03 10*3/uL Normal 0.00 - 0.10 [facility] Comment on above: Performed By: #### V FPA3 #### [facility] [address] [place] [address] Basophils/100 WBC (Bld) 0.1 % Normal 0.0 - 2.0 [facility] Comment on above: Performed By: #### V FPA3 #### [facility] [address] [place] [address] Eosinophils (Bld) [#/Vol] 0.01 10*3/uL Normal 0.00 - 0.70 [facility] Comment on above: Performed By: #### V FPA3 #### [facility] [address] [place] [address] Eosinophils/100 WBC (Bld) 0.0 % Normal 0.0 - 6.0 [facility] Comment on above: Performed By: #### V FPA3 #### [facility] [address] [place] [address] Erythrocyte distribution width (RBC) [Ratio] 12.9 % Normal 11.5 - 14.5 [facility] Comment on above: Performed By: #### V FPA3 #### [facility] [address] [place] [address] Hematocrit (Bld) [Volume fraction] 38.3 % Normal 36.0 - 46.0 [facility] Comment on above: Performed By: #### V FPA3 #### [facility] [address] [place] [address] Hemoglobin (Bld) [Mass/Vol] 12.7 g/dL Normal 12.0 - 16.0 [facility] Comment on above: Performed By: #### V FPA3 #### [facility] [address] [place] [address] Lymphocytes (Bld) [#/Vol] 2.89 10*3/uL Normal 1.20 - 4.80 [facility] Comment on above: Performed By: #### V FPA3 #### [facility] [address] [place] [address] Lymphocytes/100 WBC (Bld) 13.5 % Normal 13.0 - 44.0 [facility] Comment on above: Performed By: #### V FPA3 #### [facility] [address] [place] [address] MCHC (RBC) [Mass/Vol] 33.2 g/dL Normal 32.0 - 36.0 [facility] Comment on above: Performed By: #### V FPA3 #### [facility] [address] [place] [address] MCV (RBC) [Entitic vol] 89 fL Normal 80 - 100 [facility] Comment on above: Performed By: #### V FPA3 #### [facility] [address] [place] [address] Monocytes (Bld) [#/Vol] 1.23 10*3/uL High 0.10 - 1.00 [facility] Comment on above: Performed By: #### V FPA3 #### [facility] [address] [place] [address] Monocytes/100 WBC (Bld) 5.7 % Normal 2.0 - 10.0 [facility] Comment on above: Performed By: #### V FPA3 #### [facility] [address] [place] [address] Neutrophils (Bld) [#/Vol] 17.16 10*3/uL High 1.20 - 7.70 [facility] Comment on above: Performed By: #### V FPA3 #### [facility] [address] [place] [address] Neutrophils/100 WBC (Bld) 80.1 % Normal 40.0 - 80.0 [facility] Comment on above: Performed By: #### V FPA3 #### [facility] [address] [place] [address] NUCLEATED RBC 0.0 /100 WBC Normal 0.0-0.0 [facility] Comment on above: Performed By: #### V FPA3 #### [facility] [address] [place] [address] Platelets (Bld) [#/Vol] 401 10*3/uL Normal 150 - 450 [facility] Comment on above: Performed By: #### V FPA3 #### [facility] [address] [place] [address] RBC 4.28 x10E12/L Normal 4.00 - 5.20 [facility] Comment on above: Performed By: #### V FPA3 #### [facility] [address] [place] [address] WBC (Bld) [#/Vol] 21.5 10*3/uL High 4.4 - 11.3 [facility] Comment on above: Performed By: #### V FPA3 #### [facility] [address] [place] [address] COAGULATION SCREENon 022 aPTT Coag (Bld) [Time] 29 s Normal 26 - 39 [facility] Comment on above: Result Comment: Note new reference range as of 08/04/2021 at 10:00am. Performed By: #### R ENAL #### [facility] [address] [place] [address] PT Coag (PPP) [Time] 11.5 s Normal 9.8 - 13.4 [facility] Comment on above: Result Comment: Note new reference range as of 08/04/2021 at 10:00am. Performed By: #### R ENAL #### [facility] [address] [place] [address] PT, INR 1.0 Normal 0.9 - 1.1 [facility] Comment on above: Performed By: #### R ENAL #### [facility] [address] [place] [address] Complete Blood Count + Diffe vidya 09-19-2021 [...] 0.0 - 0.9 MG-Gastroen terology-[facility] I Work Phone: Comment on [...] connectors. Objective Data: Objective Information: T PRBPSpO2 [id number]/8596% Date/Time09/18 17: 17: 17: 17: 17:40 Range(36.4C [...] ----- Mn/Dy/Year TimeIntakeOutputNet Sep 17, 2021 10:00 [id number] The Intake and Output Totals for the last 24 hours are: IntakeOutputNet [id number] Physical Exam by System: Neurological: A&Ox3 RUE D5, B5, T5, HG5, IO5 LUE D4+, B4+, T4+, HG4+, IO5 RLE HF 4+, KE4+, PF5, DF5 (pain limited) LLE HF 4-, KE4-, PF4, DF5 Recent Lab Results: Results: Recent Arterial Blood Gas Results 09/18/2021 11:48 [id number] 24 h range: ( 219 - 224 ) pH7.44 24 h range: ( 7.44 - 7.45 ) hSG038 24 h range: ( 37 - 40 ) HY4775 24 h range: ( 100 - 100 ) Base Excess2.8 24 h range: ( 1.8 - 2.8 ) Rfwhsgzdhqp77.2 24 h range: ( 25.7 - 27.2 [...] the note. I personally evaluated the patient [id number] Comments/ Additional Findings Patients postoperative CT scan [...] Assessment an (more content not included)... Normal [facility] - Coagulationon 0 09-19-2021 [...] [Mass/Vol] 1.59 mg/dL Low 1.60 - 2.40 [facility] Comment on above: Performed By: #### R ENAL #### [facility] [address] [place] [address] PT Evaluation v2-attemptedon 09-19-2021 PT Evaluation v2-attempted Rehab: Info: Mode of Treatmentattempted Time IN11:37 Time OUT11:50 Total Treatment [id number] Evaluation Not PerformedHistory obtained, BP assessed in supine 79/54mmHg, RN notified and redone with 71/51mmHg, will hold PT eval at this time and reattempt as medically appropriate Electronic Signatures: Kaykay Yoo (PT) (Signed 19-Sep-2021 12:14) Authored: Info Last Updated: 19-Sep-2021 12:14 by Kaykay Yoo (PT) Normal [facility] RENAL FUNCTION PANELon 09-19 Albumin [Mass/Vol] 3.4 g/dL Normal 3.4 - 5.0 [facility] Comment on above: Performed By: #### A FPA3 #### [facility] [address] [place] [address] Anion gap [Moles/Vol] 18 mmol/L Normal 10 - 20 [facility] Comment on above: Performed By: #### A FPA3 #### [facility] [address] [place] [address] Calcium [Mass/Vol] 8.3 mg/dL Low 8.6 - 10.6 [facility] Comment on above: Performed By: #### A FPA3 #### [facility] [address] [place] [address] Chloride [Moles/Vol] 100 mmol/L Normal 98 - 107 [facility] Comment on above: Performed By: #### A FPA3 #### [facility] [address] [place] [address] Creatinine [Mass/Vol] 0.60 mg/dL Normal 0.50 - 1.05 [facility] Comment on above: Performed By: #### A FPA3 #### [facility] [address] [place] [address] eGFR FEMALE >90 Normal >90 [facility] Comment on above: Result Comment: CALC ULATIONS OF ESTIMATED GFR ARE PERFORMED USING THE 2020 CKD-EPI STUDY REFIT EQUATION WITHOUT THE RACE VARIABLE FOR THE IDMS-TRACEABLE CREATININE METHODS. https://jasn.asnjournals.org/content/early//ASN.237 4399871 Performed By: #### A FPA3 #### [facility] [address] [place] [address] Glucose [Mass/Vol] 82 mg/dL Normal 74 - 99 [facility] Comment on above: Performed By: #### A FPA3 #### [facility] [address] [place] [address] HCO3 (Bld) [Moles/Vol] 26 mmol/L Normal 21 - 32 [facility] Comment on above: Performed By: #### A FPA3 #### [facility] [address] [place] [address] Phosphate [Mass/Vol] 2.8 mg/dL Normal 2.5 - 4.9 [facility] Comment on above: Result Comment: The performance characteristics of phosphorus testing in heparinized plasma have been validated by the individual laboratory site where testing is performed. Testing on heparinized plasma is not approved by the FDA; however, such approval is not necessary. Performed By: #### A FPA3 #### [facility] [address] [place] [address] Potassium [Moles/Vol] 4.5 mmol/L Normal 3.5 - 5.3 [facility] Comment on above: Performed By: #### A FPA3 #### [facility] [address] [place] [address] Sodium [Moles/Vol] 139 mmol/L Normal 136 - 145 [facility] Comment on above: Performed By: #### A FPA3 #### [facility] [address] [place] [address] Urea nitrogen [Mass/Vol] 9 mg/dL Normal 6 - 23 [facility] Comment on above: Performed By: #### A FPA3 #### [facility] [address] [place] [address] Albumin [Mass/Vol] 3.6 g/dL Normal 3.4 - 5.0 [facility] Comment on above: Performed By: #### R ENAL #### [facility] [address] [place] [address] Anion gap [Moles/Vol] 13 mmol/L Normal 10 - 20 [facility] Comment on above: Performed By: #### R ENAL #### [facility] [address] [place] [address] Calcium [Mass/Vol] 8.9 mg/dL Normal 8.6 - 10.6 [facility] Comment on above: Performed By: #### R ENAL #### [facility] [address] [place] [address] Chloride [Moles/Vol] 100 mmol/L Normal 98 - 107 [facility] Comment on above: Performed By: #### R ENAL #### [facility] [address] [place] [address] Creatinine [Mass/Vol] 0.51 mg/dL Normal 0.50 - 1.05 [facility] Comment on above: Performed By: #### R ENAL #### [facility] [address] [place] [address] eGFR FEMALE >90 Normal >90 [facility] Comment on above: Result Comment: CALC ULATIONS OF ESTIMATED GFR ARE PERFORMED USING THE 2020 CKD-EPI STUDY REFIT EQUATION WITHOUT THE RACE VARIABLE FOR THE IDMS-TRACEABLE CREATININE METHODS. https://jasn.asnjournals.org/content//ASN.957 3399999 Performed By: #### R ENAL #### [facility] [address] [place] [address] Glucose [Mass/Vol] 123 mg/dL High 74 - 99 [facility] Comment on above: Performed By: #### R ENAL #### [facility] [address] [place] [address] HCO3 (Bld) [Moles/Vol] 28 mmol/L Normal 21 - 32 [facility] Comment on above: Performed By: #### R ENAL #### [facility] [address] [place] [address] Phosphate [Mass/Vol] 2.8 mg/dL Normal 2.5 - 4.9 [facility] Comment on above: Result Comment: The performance characteristics of phosphorus testing in heparinized plasma have been validated by the individual laboratory site where testing is performed. Testing on heparinized plasma is not approved by the FDA; however, such approval is not necessary. Performed By: #### R ENAL #### [facility] [address] [place] [address] Potassium [Moles/Vol] 4.3 mmol/L Normal 3.5 - 5.3 [facility] Comment on above: Performed By: #### R ENAL #### [facility] [address] [place] [address] Sodium [Moles/Vol] 137 mmol/L Normal 136 - 145 [facility] Comment on above: Performed By: #### R ENAL #### [facility] [address] [place] [address] Urea nitrogen [Mass/Vol] 8 mg/dL Normal 6 - 23 [facility] Comment on above: Performed By: #### R ENAL #### [facility] [address] [place] [address] Renal Function Panelon 09-19 Albumin BCP dye [Mass/Vol] 3.4 g/dL 3.4 - 5.0 MG-Gastroen terology-[facility] Work Phone: Anion gap [Moles/Vol] 18 [...] RACE VARIABLE FOR THE IDMS-TRACEABLE CREATININE METHODS.https://jasn.asnjournals.org/content/ /ASN.1158526560 ANTIBODY IDENT.on 09-18-2021 ANTIBODY IDENT. Anti-E Normal [facility] Comment on above: Performed By: #### A FPA3 #### [facility] [address] [place] [address] ARTERIAL FULL PANELon 2021 Anion gap [Moles/Vol] 5 mmol/L Low 10 - 25 [facility] Comment on above: Performed By: #### A FPA3 ####[id number] [place] [address] BASE EXCESS-BLOOD 2.8 mmol/L Normal -2.0 - 3.0 [facility] Comment on above: Performed By: #### A FPA3 ####[id number] [place] [address] BICARB, CALCULATED 27.2 mmol/L High 22.0 - 26.0 [facility] Comment on above: Performed By: #### A FPA3 ####[id number] [place] [address] CALCIUM,IONIZED 1.20 mmol/L Normal 1.10 - 1.33 [facility] Comment on above: Performed By: #### A FPA3 ####[id number] [place] [address] Chloride [Moles/Vol] 106 mmol/L Normal 98 - 107 [facility] Comment on above: Performed By: #### A FPA3 ####[id number] [place] [address] Glucose [Mass/Vol] 149 mg/dL High 74 - 99 [facility] Comment on above: Performed By: #### A FPA3 ####[id number] [place] [address] Hematocrit (Bld) [Volume fraction] 38.0 % Normal 36.0 - 46.0 [facility] Comment on above: Performed By: #### A FPA3 ####[id number] [place] [address] HGB,CALCULATED 12.9 g/dL Normal 12.0 - 16.0 [facility] Comment on above: Performed By: #### A FPA3 ####[id number] [place] [address] Lactate [Moles/Vol] 0.9 mmol/L Normal 0.4 - 2.0 [facility] Comment on above: Performed By: #### A FPA3 ####[id number] [place] [address] Oxygen (Bld) [Partial pressure] 219 mm[Hg] High 85 - 95 [facility] Comment on above: Performed By: #### A FPA3 ####[id number] [place] [address] PATIENT TEMPERATURE 37.0 degrees C Normal [facility] Comment on above: Result Comment: NOTE : PATIENT RESULTS ARE NOT CORRECTED FOR TEMPERATURE. Performed By: #### A FPA3 ####[id number] [place] [address] PCO2 40 mmHg Normal 38 - 42 [facility] Comment on above: Performed By: #### A FPA3 ####[id number] [place] [address] pH (Bld) 7.44 [pH] High 7.38 - 7.42 [facility] Comment on above: Performed By: #### A FPA3 ####[id number] [place] [address] Potassium [Moles/Vol] 4.4 mmol/L Normal 3.5 - 5.3 [facility] Comment on above: Performed By: #### A FPA3 ####[id number] [place] [address] SO2 100 % Normal 94 - 100 [facility] Comment on above: Performed By: #### A FPA3 ####[id number] [place] [address] Sodium [Moles/Vol] 134 mmol/L Low 136 - 145 [facility] Comment on above: Performed By: #### A FPA3 ####[id number] [place] [address] Anion gap [Moles/Vol] 7 mmol/L Low 10 - 25 [facility] Comment on above: Performed By: #### A FPA3 #### [facility] [address] [place] [address] BASE EXCESS-BLOOD 1.8 mmol/L Normal -2.0 - 3.0 [facility] Comment on above: Performed By: #### A FPA3 #### [facility] [address] [place] [address] BICARB, CALCULATED 25.7 mmol/L Normal 22.0 - 26.0 [facility] Comment on above: Performed By: #### A FPA3 #### [facility] [address] [place] [address] CALCIUM,IONIZED 1.20 mmol/L Normal 1.10 - 1.33 [facility] Comment on above: Performed By: #### A FPA3 #### [facility] [address] [place] [address] Chloride [Moles/Vol] 105 mmol/L Normal 98 - 107 [facility] Comment on above: Performed By: #### A FPA3 #### [facility] [address] [place] [address] Glucose [Mass/Vol] 174 mg/dL High 74 - 99 [facility] Comment on above: Performed By: #### A FPA3 #### [facility] [address] [place] [address] Hematocrit (Bld) [Volume fraction] 37.0 % Normal 36.0 - 46.0 [facility] Comment on above: Performed By: #### A FPA3 #### [facility] [address] [place] [address] HGB,CALCULATED 12.6 g/dL Normal 12.0 - 16.0 [facility] Comment on above: Performed By: #### A FPA3 #### [facility] [address] [place] [address] Lactate [Moles/Vol] 1.1 mmol/L Normal 0.4 - 2.0 [facility] Comment on above: Performed By: #### A FPA3 #### [facility] [address] [place] [address] Oxygen (Bld) [Partial pressure] 224 mm[Hg] High 85 - 95 [facility] Comment on above: Performed By: #### A FPA3 #### [facility] [address] [place] [address] PATIENT TEMPERATURE 37.0 degrees C Normal [facility]3] Comment on above: Result Comment: NOTE : PATIENT RESULTS ARE NOT CORRECTED FOR TEMPERATURE. Performed By: #### A FPA3 #### [facility] [address] [place] [address] PCO2 37 mmHg Low 38 - 42 [facility] [facility] Comment on above: Performed By: #### A FPA3 #### [facility] [address] [place] [address] pH (Bld) 7.45 [pH] High 7.38 - 7.42 [facility] Comment on above: Performed By: #### A FPA3 #### [facility] [address] [place] [address] Potassium [Moles/Vol] 3.9 mmol/L Normal 3.5 - 5.3 [facility] Comment on above: Performed By: #### A FPA3 #### [facility] [address] [place] [address] SO2 100 % Normal 94 - 100 [facility] Comment on above: Performed By: #### A FPA3 #### [facility] [address] [place] [address] Sodium [Moles/Vol] 134 mmol/L Low 136 - 145 [facility] Comment on above: Performed By: #### A FPA3 #### [facility] [address] [place] [address] CT L Spine without Contrasto n 09-18-2021 [...] connectors. Objective Data: Objective Information: T PRBPSpO2 [id number]/4391% Date/Time09/18 6: 5: 5: 5: 5:56 Range(37C [...] Recent Arterial Blood Gas Results 09/18/2021 11:48 [id number] 24 h range: ( 219 - 224 ) pH7.44 24 h range: ( 7.44 - 7.45 ) wGU031 24 h range: ( 37 - 40 ) CG5137 24 h range: ( 100 - 100 ) Base Excess2.8 24 h range: ( 1.8 - 2.8 ) Qcmiohtpsnr35.2 24 h range: ( 25.7 - 27.2 ) Assessment and Plan: Code Status: Code StatusFull Code Electronic Signatures: Bryan Mora) (Signed 18-Sep-2021 14:47) Authored: Service, Subjective Data, Objective Data, Assessment and Plan, Note Completion Last Updated: 18-Sep-2021 14:47 by Bryan Mora) Normal [facility] Daily Progress Note-Neurosur jinny 09-18-2021 Daily Progress Note-Neurosurgery Service: Neurosurgery Subjective Data: MORALES LEE is a 46 year old Female who is Hospital Day # 4. Objective Data: Objective Information: T PRBPSpO2 [id number]/4391% Date/Time1/14 6:041/14 5:56114 5:56114 5:561/14 5:56 Range(36.6C [...] Severe ---- Intake and Output ----- Mn/Dy/[facility]Out[facility] Sep 17, 2021 10:00 [id number] Sep 17, 2021 2:00 [id number] The Intake and Output Totals for the [...] the note. I personally evaluated the patient [id number] Electronic Signatures: Fidel Maciel (Resident)) (Signed 18-Sep-2021 06:55) Authored: Service, Subjective Data, Objective Data, Assessment and Plan, Note Completion Lex Frederick) (Signed 19-Sep-2021 10:18) Authored: Note Completion Co-Signer: Service, Subjective Data, Objective Data, Assessment and Plan, Note Completion Last Updated: 19-Sep-2021 10:18 by Lex Frederick) Normal [facility] Laboratory - Chemistry and C [...] dated 10/07/2020. MRI dated 12/11/2020 ACCESSION NUMBER(S): [id number] ORDERING CLINICIAN: ANGELO JUAREZ TECHNIQUE: Thin cut [...] as stated. This study was interpreted at [facility], [place], [place]. Electronically signed by: BOONE LAO MD Normal [facility] No Panel Informationon 09-18 0.0 [...] Respiratory Rate15 breath per minute Blood Pressure Ralqjpdi20 mm/Hg Blood Pressure Vhoecdwoq73 mm/Hg COVID 19 Results in Last 7 [...] 18-Sep-2021 06:59 by Lian Zuleta (SANAZ) Normal [facility] Radiologyon 09-18-2021 XR Chest Single [...] - 4.9 [facility] 6 [facility] Work Phone: Comment on above: The [...] >90 >90 [facility] astroen [facility]ology[facility] 6 [facility] Work Phone: Comment on above: CALCULATIONS OF IVY MATED GFR ARE PERFORMED USING THE 2020 CKD-EPI STUDY REFIT EQUATION WITHOUT THE RACE VARIABLE FOR THE IDMS-TRACEABLE CREATININE METHODS.https://jasn.asnjournals.org/content/early /ASN.[id number] TH CHEST; 1 VIEWon 2 TH CHEST; 1 VIEW Patient Name: MORALES LEE STUDY: CHEST; 1 VIEW; 09/18/2021 2:38 pm INDICATION: s/p central line placement (right IJ double lumen) . COMPARISON: Radiograph dated 09/15/2021 ACCESSION NUMBER(S): [id number] ORDERING CLINICIAN: BRYAN MORA FINDINGS: Right IJ [...] Electronically signed by: LORELEI JOHNSTON MD Normal [facility] VENOUS FULL PANELon 09-18-19 22 Anion gap [Moles/Vol] 6 mmol/L Low 10 - 25 [facility] Comment on above: Performed By: #### V FPA3 #### [facility] [address] [place] [address] BASE EXCESS-BLOOD 3.9 mmol/L High -2.0 - 3.0 [facility] Comment on above: Performed By: #### V FPA3 #### [facility] [address] [place] [address] BICARB, CALCULATED 28.5 mmol/L High 22.0 - 26.0 [facility] Comment on above: Performed By: #### V FPA3 #### [facility] [address] [place] [address] CALCIUM,IONIZED 1.17 mmol/L Normal 1.10 - 1.33 [facility] Comment on above: Performed By: #### V FPA3 #### [facility] [address] [place] [address] Chloride [Moles/Vol] 103 mmol/L Normal 98 - 107 [facility] Comment on above: Performed By: #### V FPA3 #### [facility] [address] [place] [address] Glucose [Mass/Vol] 188 mg/dL High 74 - 99 [facility] Comment on above: Performed By: #### V FPA3 #### [facility] [address] [place] [address] Hematocrit (Bld) [Volume fraction] 39.0 % Normal 36.0 - 46.0 [facility] Comment on above: Performed By: #### V FPA3 #### [facility] [address] [place] [address] HGB,CALCULATED 13.3 g/dL Normal 12.0 - 16.0 [facility] Comment on above: Performed By: #### V FPA3 #### [facility] [address] [place] [address] Lactate [Moles/Vol] 1.2 mmol/L Normal 0.4 - 2.0 [facility] Comment on above: Performed By: #### V FPA3 #### [facility] [address] [place] [address] Oxygen (Bld) [Partial pressure] 56 mm[Hg] High 35 - 45 [facility] Comment on above: Performed By: #### V FPA3 #### [facility] [address] [place] [address] PATIENT TEMPERATURE 37.0 degrees C Normal [facility]3] Comment on above: Result Comment: NOTE : PATIENT RESULTS ARE NOT CORRECTED FOR TEMPERATURE. Performed By: #### V FPA3 #### [facility] [address] [place] [address] PCO2 42 mmHg Normal 41 - 51 [facility] Comment on above: Performed By: #### V FPA3 #### [facility] [address] [place] [address] pH (Bld) 7.44 [pH] High 7.33 - 7.43 [facility] Comment on above: Performed By: #### V FPA3 #### [facility] [address] [place] [address] Potassium [Moles/Vol] 4.1 mmol/L Normal 3.5 - 5.3 [facility] Comment on above: Performed By: #### V FPA3 #### [facility] [address] [place] [address] SO2 91 % High 45 - 75 [facility] Comment on above: Performed By: #### V FPA3 #### [facility] [address] [place] [address] Sodium [Moles/Vol] 133 mmol/L Low 136 - 145 [facility] Comment on above: Performed By: #### V FPA3 #### [facility] [address] [place] [address] CORONAVIRUS 2019, SCREEN ASY MPTOMATICon 09-17-2021 SARS-CoV-2 (COVID-19) RNA ADRIÁN+probe Ql (Unsp spec) Not detected Normal Not Detected [facility] Comment on above: Result Comment: . This test has received FDA Emergency Use Authorization (EUA) and has been verified by [facility] ([facility]). This test is only authorized for the duration of time that circumstances exist to justify the authorization of the emergency use of in vitro diagnostic tests for the detection of SARS-CoV-2 virus and/or diagnosis of COVID-19 infection under section 564(b)(1) of the Act, 21 U.S.C. 360bbb-3(b)(1), unless the authorization is terminated or revoked sooner. [facility] is certified under CLIA-88 as qualified to perform high complexity testing. Testing is performed in the [facility] located at [address] [place] [address]. SARS-CoV-2/Flu/RSV Multiplex Test: Fact sheet for providers: https://www.fda.gov/media/875329/download Fact sheet for patients: https://www.fda.gov/media/376050/download Performed By: #### C OVSC ####[id number] [place] [address] Lab Specimen Source Nasal, Nasopharyngeal Normal [facility] Comment on above: Performed By: #### C OVSC ####[id number] [place] [address] Coronavirus 2019 RNA by PCR, Screening Asymptomticon 09-17-2021 Coronavirus 2019 RNA by PCR, Screening Asymptomtic Not detected Normal See Below [facility]Gastroen terology-[place] 6 [facility] Work Phone: Comment on above: SOURCE: Nasal, Nasop haryngealReference Range: Not Detected.This test has received FDA Emergency Use Authorization (EUA) and has been verified by [facility] ([facility]). This test is only authorized for the duration of time that circumstances exist to justify the authorization of the emergency use of in vitro diagnostic tests for the detection of SARS-CoV-2 virus and/or diagnosis of COVID-19 infection under section 564(b)(1) of the Act, 21 U.S.C. 360bbb-3(b)(1), unless the authorization is terminated or revoked sooner. [facility] is certified under CLIA-88 as qualified to perform high complexity testing. Testing is performed in the [facility] located at [address] [place] [address].SARS-CoV-2/Flu/RSV Multiplex Test: Fact sheet for providers: https://www.fda.gov/media/913596/downloadFact sheet for patients: https://www.fda.gov/media/350024/download Covid 19 Resultson 2 SARS-CoV-2 (COVID-19) RNA [...] also be contacted by the [facility] to see if any of your [...] or Naproxen (Aleve) can also be used. Zbny-muj-amnczsi cough and cold medicines can be used according to the instructions on the package. Some lrcp-wzf-votknff medicines also contain acetaminophen. Make sure you [...] water are not available, use alcohol-based hand grade tamper. Avoid touching your eyes, nose, and mouth [...] 24 mariella (more content not included)... Normal [facility] Daily Progress Note - Psychi vivianyon [...] pain but found it well-controlled on Dilaudid RN INTAKE and 5/10 mg oxycodone. Pt is interested [...] he has been working (cardoza at a [employer]), but she looks forward to his arrival [...] her suboxone. Objective: Objective Information: T PRBPSpO2 Value36.52331371/9095% Date/Time09/17 4: 10: 10:: 10:00 Range(35.7C - 36.6C ) (81 - 89 ) (10 - 23 ) (73 - 117 )/ (43 - 90 ) (91% - 96% ) As of 17-Sep-2021 08:00:00, patient is on 3 L/min of oxygen via nasal cannula. Pain reported at 09/17 8:00: 8 = Severe ---- Intake and Output ----- Mn/Dy/Year TimeIntakeOutputNet Sep 17, 2021 6:00 [id number] Sep 16, 2021 2:00 [id number] The Intake and Output Totals for the last 24 hours are: IntakeOutputNet [id number] Mental Status Exam: General: Awake, lying in [...] a Da (more content not included)... Normal [facility] Daily Progress Note-Neurosur jinny 09-17-2021 Daily Progress Note-Neurosurgery Service: Neurosurgery Subjective Data: MORALES LEE is a 46 year old Female who is Hospital Day # 3. Objective Data: Objective Information: T PRBPSpO2 Value35.7928517/4393% Date/Time09/16 18:541/12 18:5409/16 18:5409/16 18:5409/16 18:54 Range(35.7C - 36.4C ) (81 - 91 ) (15 - 24 ) (87 - 118 )/ (43 - 84 ) (91% - 96% ) As of 16-Sep-2021 18:54:00, patient is on 2 L/min of oxygen via nasal cannula. Pain reported at 09/16 16:34: 10 = Severe ---- Intake and Output ----- Mn/Dy/[facility]Int[facility]Out[facility] Sep 16, 2021 2:00 [id number] Physical Exam by System: Neurological: A&Ox3 RUE [...] the note. I personally evaluated the patient [id number] Comments/ Additional Findings I again explained to [...] Updated: 19-Sep-2021 10:16 by Lex Frederick) Normal [facility] HCG,URINEon 09-17-2021 Beta HCG ( test) Ql (U) Negative Normal Negative [facility] Comment on above: Performed By: #### A FPA3 #### [facility] [address] [place] [address] Laboratory - Blood bankon ABO group Nom [...] 09-17-2021 REQUEST-LEUKOREDUCED RED CELLS ORDER RECD Normal [facility] Comment on above: Performed By: #### O STENCIL MAKER #### [facility] [address] [place] [address] TYPE + SCREENon 09-17-2021 ABO TYPE O Normal [facility] Comment on above: Performed By: #### T +S #### [facility] [address] [place] [address] RH TYPE Positive Normal [facility] Comment on above: Performed By: #### T +S #### [facility] [address] [place] [address] Urine Teston 09-17 HCG ( test) Ql (U) Negative Negative [facility]-Gastroen [facility]ology-[place] 6 [facility] Work Phone: BNPon 09-16-2021 Natriuretic peptide B (Bld) [Mass/Vol] 37 pg/mL Normal 0 - 99 [facility] Comment on above: Result Comment: [...] information. Performed By: #### A FPA3 #### [facility] [address] [place], [place] CBC AND DIFFERENTIALon 09-16 % AUTOMATED IMMATURE GRAN 0.5 % Normal 0.0 - 0.9 [facility] Comment on above: Result Comment: Jaleesa ture Granulocyte Count (IG) includes promyelocytes, myelocytes and metamyelocytes but does not include bands. Percent differential counts (%) should be interpreted in the context of the absolute cell counts (cells/L). Performed By: #### C BCDF ####[id number] [place] [address] Basophils (Bld) [#/Vol] 0.04 10*3/uL Normal 0.00 - 0.10 [facility] Comment on above: Performed By: #### C BCDF ####[id number] [place] [address] Basophils/100 WBC (Bld) 0.5 % Normal 0.0 - 2.0 [facility]3] Comment on above: Performed By: #### C BCDF ####[id number] [place] [address] Eosinophils (Bld) [#/Vol] 0.26 10*3/uL Normal 0.00 - 0.70 [facility] Comment on above: Performed By: #### C BCDF ####[id number] [place] [address] Eosinophils/100 WBC (Bld) 3.0 % Normal 0.0 - 6.0 [facility] Comment on above: Performed By: #### C BCDF ####[id number] [place] [address] Erythrocyte distribution width (RBC) [Ratio] 13.0 % Normal 11.5 - 14.5 [facility] Comment on above: Performed By: #### C BCDF ####[id number] [place] [address] Hematocrit (Bld) [Volume fraction] 42.7 % Normal 36.0 - 46.0 [facility] Comment on above: Performed By: #### C BCDF ####[id number] [place] [address] Hemoglobin (Bld) [Mass/Vol] 14.1 g/dL Normal 12.0 - 16.0 [facility] Comment on above: Performed By: #### C BCDF ####[id number] [place] [address] Lymphocytes (Bld) [#/Vol] 3.17 10*3/uL Normal 1.20 - 4.80 [facility] Comment on above: Performed By: #### C BCDF ####[id number] [place] [address] Lymphocytes/100 WBC (Bld) 37.2 % Normal 13.0 - 44.0 [facility] Comment on above: Performed By: #### C BCDF ####[id number] [place] [address] MCHC (RBC) [Mass/Vol] 33.0 g/dL Normal 32.0 - 36.0 [facility] Comment on above: Performed By: #### C BCDF ####[id number] [place] [address] MCV (RBC) [Entitic vol] 91 fL Normal 80 - 100 [facility] Comment on above: Performed By: #### C BCDF ####[id number] [place] [address] Monocytes (Bld) [#/Vol] 0.47 10*3/uL Normal 0.10 - 1.00 [facility] Comment on above: Performed By: #### C BCDF ####[id number] [place] [address] Monocytes/100 WBC (Bld) 5.5 % Normal 2.0 - 10.0 [facility] Comment on above: Performed By: #### C BCDF ####[id number] [place] [address] Neutrophils (Bld) [#/Vol] 4.55 10*3/uL Normal 1.20 - 7.70 [facility] Comment on above: Performed By: #### C BCDF ####[id number] [place] [address] Neutrophils/100 WBC (Bld) 53.3 % Normal 40.0 - 80.0 [facility] Comment on above: Performed By: #### C BCDF ####[id number] [place] [address] NUCLEATED RBC 0.0 /100 WBC Normal 0.0-0.0 [facility] Comment on above: Performed By: #### C BCDF ####[id number] [place] [address] Platelets (Bld) [#/Vol] 278 10*3/uL Normal 150 - 450 [facility] Comment on above: Performed By: #### C BCDF ####[id number] [place] [address] RBC 4.70 x10E12/L Normal 4.00 - 5.20 [facility] Comment on above: Performed By: #### C BCDF ####[id number] [place] [address] WBC (Bld) [#/Vol] 8.5 10*3/uL Normal 4.4 - 11.3 [facility] Comment on above: Performed By: #### C BCDF ####[id number] [place] [address] COAGULATION SCREENon 022 aPTT Coag (Bld) [Time] 31 s Normal 26 - 39 [facility] Comment on above: Result Comment: Note new reference range as of 08/04/2021 at 10:00am. Performed By: #### V FPA3 #### [facility] [address] [place] [address] PT Coag (PPP) [Time] 11.6 s Normal 9.8 - 13.4 [facility] Comment on above: Result Comment: Note new reference range as of 08/04/2021 at 10:00am. Performed By: #### V FPA3 #### [facility] [address] [place] [address] PT, INR 1.0 Normal 0.9 - 1.1 [facility] Comment on above: Performed By: #### V FPA3 #### [facility] [address] [place] [address] Clinical Event Note-ADMISSIO N CLARIFICATIONon 09-16-2021 Clinical [...] and monitoring for withdrawal. Provider/Team Contact Info-Pager [phone] Electronic Signatures: Sharmin Guaman (FITNESS CENTER ATTENDANT-AIRPORT TOWER CONTROLLER) (Signed 16-Sep-2021 12:07) Authored: Clinical Event Note Last Updated: 16-Sep-2021 12:07 by Sharmin Guaman (FITNESS CENTER ATTENDANT-AIRPORT TOWER CONTROLLER) Normal [facility] Complete Blood Count + Diffe rentialon 09-16-2021 Basophils/100 WBC (Bld) 0.5 % 0.0 - 2.0 M G-Gastroen [facility]ology-[place] 6 [facility] Work Phone: Erythrocyte distribution width (RBC) [Ratio] 13.0 % See Below MG-Gastroen terology-[place] 6 [facility] Work Phone: Comment on above: Reference Range: 11. 5 - 14.5 Hematocrit (Bld) [Volume fraction] 42.7 % See Below MG-Gastroen terology-[place] 6 [facility] Work Phone: Comment on above: Reference Range: 36. 0 - 46.0 Hemoglobin (Bld) [Mass/Vol] 14.1 g/dL See Below MG-Gastroen terology-[place] 6 I Work Phone: Comment on above: Reference Range: 12. 0 - 16.0 Lymphocytes/100 WBC (Bld) 37.2 % See Below MG-Gastroen terology-[place] 6 [facility] Work Phone: Comment on above: Reference Range: 13. 0 - 44.0 MCHC (RBC) [Mass/Vol] 33.0 g/dL See Below MG- Gastroen terology-[place] 6 [facility] Work Phone: Comment on above: Reference Range: 32. 0 - 36.0 MCV (RBC) [Entitic vol] 91 fL 80 - 100 M G-Gastroen terology-[place] 6 [facility] Work Phone: Monocytes/100 WBC (Bld) 5.5 [...] 0.0 {/100_WBC} 0.0-0.0 MG-Gastroen terology-[place] 6 [facility] Work Phone: Consult-Painon 09-16-2021 Consult-Pain Service: [...] the note. I personally evaluated the patient [id number] Electronic Signatures: Chidi Lamar (Fellow)) (Signed 16-Sep-2021 [...] From Consult - Psychiatry 15-Sep-2021 20:42 Normal [facility] Consult-Perioperative Medici neon 09-16-2021 Consult-Perioperative Medicine [...] penicillin: Unknown Objective: Objective Information: T PRBPSpO2 Value36.16621500/8491% Date/Time09/16 11:131/12 12:4909/16 12:4909/16 12:4909/16 12:49 Range(36.3C [...] 100 mg (more content not included)... Normal [facility] Cult, Urineon 09-16-2021 Bacteria identified Cx Nom (U) Abnormal [facility]Gastroen [facility]ology-[place] [facility] Work Phone: Daily Progress Note-Neurosur jinny 09-16-2021 Daily Progress Note-Neurosurgery Service: Neurosurgery Subjective Data: MORALES LEE is a 46 year old Female who is Hospital Day # 3. Objective Data: Objective Information: T PRBPSpO2 Value36.1085138/6693% Date/Time09/16 1: 4: 4: 4: 4:00 Range(36.3C [...] (suboxone) in AM COWS psych recs SCD's, [facility] Attestation: Note Completion: I [...] the note. I personally evaluated the patient [id number] Comments/ Additional Findings TO OR this Tuesday if medically optimized for T12 - Pelvis fusion and Instrumentation. Pain consult for management regrading Suboxone and pain control in the perioperative period. US LE MRI of the lumbar spine., Lex Frederick MD, [facility], FAANS Director - Minimally Invasive Spine Surgery [facility] Head Of Drama of Neurological Surgery [facility] [employer] [place], [place] Electronic Signatures: Fidel Maciel (Resident)) (Signed 16-Sep-2021 04:33) Authored: Service, Subjective Data, Objective Data, Assessment and Plan, Note Completion Lex Frederick) (Signed 16-Sep-2021 10:22) Authored: Note Completion Co-Signer: Service, Subjective Data, Objective Data, Assessment and Plan, Note Completion Last Updated: 16-Sep-2021 10:22 by Lex Frederick) Normal [facility] EMR ADDONon 09-16-2021 ADDON CONFIRMATION REQUEST REC'D Normal [facility] Comment on above: Performed By: [...] above: . <100 pg/mL - Heart failure -773 pg/mL - Intermediate probability of acute heart. [...] [Mass/Vol] 3.5 g/dL Normal 3.4 - 5.0 [facility] Comment on above: Performed By: #### R ENAL #### [facility] [address] [place] [address] Anion gap [Moles/Vol] 14 mmol/L Normal 10 - 20 [facility] Comment on above: Performed By: #### R ENAL #### [place] [address] [place] [address] Calcium [Mass/Vol] 8.9 mg/dL Normal 8.6 - 10.6 [facility] Comment on above: Performed By: #### R ENAL #### [facility] [address] [place] [address] Chloride [Moles/Vol] 101 mmol/L Normal 98 - 107 [facility] Comment on above: Performed By: #### R ENAL #### [facility] [address] [place] [address] Creatinine [Mass/Vol] 0.63 mg/dL Normal 0.50 - 1.05 [facility] Comment on above: Performed By: #### R ENAL #### [facility] [address] [place] [address] eGFR FEMALE >90 Normal >90 [facility] Comment on above: Result Comment: CALC ULATIONS OF ESTIMATED GFR ARE PERFORMED USING THE 2020 CKD-EPI STUDY REFIT EQUATION WITHOUT THE RACE VARIABLE FOR THE IDMS-TRACEABLE CREATININE METHODS. https://jasn.asnjournals.org/content//ASN.966 3917893 Performed By: #### R ENAL #### [facility] [address] [place] [address] Glucose [Mass/Vol] 88 mg/dL Normal 74 - 99 [facility] Comment on above: Performed By: #### R ENAL #### [facility] [address] [place] [address] HCO3 (Bld) [Moles/Vol] 29 mmol/L Normal 21 - 32 [facility] Comment on above: Performed By: #### R ENAL #### [facility] [address] [place] [address] Phosphate [Mass/Vol] 3.4 mg/dL Normal 2.5 - 4.9 [facility] Comment on above: Result Comment: The performance characteristics of phosphorus testing in heparinized plasma have been validated by the individual laboratory site where testing is performed. Testing on heparinized plasma is not approved by the FDA; however, such approval is not necessary. Performed By: #### R ENAL #### [facility] [address] [place] [address] Potassium [Moles/Vol] 3.7 mmol/L Normal 3.5 - 5.3 [facility] Comment on above: Performed By: #### R ENAL #### [facility] [address] [place] [address] Sodium [Moles/Vol] 140 mmol/L Normal 136 - 145 [facility] Comment on above: Performed By: #### R ENAL #### [facility] [address] [place] [address] Urea nitrogen [Mass/Vol] 10 mg/dL Normal 6 - 23 [facility] Comment on above: Performed By: #### R ENAL #### [facility] [address] [place] [address] Renal Function Panelon 09-16 Albumin BCP dye [...] - 5.3 MG- Gastroen terology-[place] 6 [facility] Work Phone: Sodium [Moles/Vol] 140 mmol/L 136 - 145 MG-Gas troen terology-[place] 6 I Work Phone: Urea nitrogen [Mass/Vol] 10 mg/dL 6 - 23 MG-Gastroen terology-[place] 6 I Work Phone: Renal Function Panel >90 >90 MG-G astroen terology-[place] 6 [facility] Work Phone: Comment on above: CALCULATIONS OF IVY MATED GFR ARE PERFORMED USING THE 2020 CKD-EPI STUDY REFIT EQUATION WITHOUT THE RACE VARIABLE FOR THE IDMS-TRACEABLE CREATININE METHODS.https://jasn.asnjournals.org/content/ /ASN.[email or web address] [facility] 09-16-2021 BACTERIA 2+ /HPF Abnormal [facility] Comment on above: Performed By: #### U AMIC ####[id number] [place] [address] Mucus Ql (Urine sed) 1+ /LPF Normal [facility] Comment on above: Performed By: #### U AMIC ####[id number] [place] [address] RBC 3 /HPF Normal 0-5 [facility] Comment on above: Performed By: #### U AMIC ####[id number] [place] [address] SQUAMOUS EPITH. CELLS 2 /HPF Normal [facility] Comment on above: Performed By: #### U AMIC ####[id number] [place] [address] WBC 115 /HPF Abnormal 0-5 [facility] Comment on above: Performed By: #### U AMIC ####[id number] [place] [address] URINALYSISon 09-16-2021 Appearance (U) HAZY Normal CLEAR [facility] Comment on above: Performed By: #### U A ####[id number] [place] [address] Bilirubin Ql (U) Negative Normal NEGATIVE [facility] Comment on above: Performed By: #### U A ####[id number] [place] [address] Color (U) YELLOW Normal STRAW,YELL OW [facility] Comment on above: Performed By: #### U A ####[id number] [place] [address] Glucose Ql (U) Negative Normal NEGATIVE [facility] Comment on above: Performed By: #### U A ####[id number] [place] [address] Hemoglobin Ql (U) Negative Normal NEGATIVE [facility] Comment on above: Performed By: #### U A ####[id number] [place] [address] Ketones Ql (U) Negative Normal NEGATIVE [facility] Comment on above: Performed By: #### U A ####[id number] [place] [address] Leukocyte esterase Test strip Ql (U) LARGE (3+) Abnormal NEGATIVE [facility] Comment on above: Performed By: #### U A ####[id number] [place] [address] Nitrite Ql (U) Positive Abnormal NEGATIVE [facility] Comment on above: Performed By: #### U A ####[id number] [place] [address] pH (U) 6.0 [pH] Normal 5.0 - 8.0 [facility] Comment on above: Performed By: #### U A ####[id number] [place] [address] Protein Ql (U) Negative Normal NEGATIVE [facility] Comment on above: Performed By: #### U A ####[id number] [place] [address] Specific gravity (U) [Rel density] 1.011 Normal 1.005 - 1.035 [facility] Comment on above: Performed By: #### U A ####[id number] [place] [address] Urobilinogen (U) [Mass/Vol] 2.0 mg/dL High 0.0 - 1.9 [facility] Comment on above: Result Comment: [...] positive urobilinogen. Performed By: #### U A ####[id number] [place] [address] URINE CULTURE,BACTERIALon URINE CULTURE,BACTERIAL PATIENT: Fay LEE LOCATION: [facility]#: [id number] : 71 AGE: SEX: F ORDERED BY: [...] DEPENDENT NS=NONSUSCEPTIBLE X=REPORTED IN ERROR ___ Normal [facility] Comment on above: Performed By: #### A FPA3 #### [facility] [address] [place] [address] Urinalysison 09-16-2021 Color (U) YELLOW See Below MG-Gastroen [employer]-[place] 6 [facility] Work Phone: Comment on above: Reference Range: STR AW,YELLOW Glucose Ql (U) Negative NEGATIVE MG-Gastroe n terology-[place] 6 [facility] Work Phone: Ketones Ql (U) Negative NEGATIVE MG-Gastroe n terology-[facility] 6 [facility] Work Phone: Leukocyte esterase Test strip Ql (U) LARGE (3+) Abnormal NEGATIVE MG-Gastroen terology-[place] 6 I Work Phone: pH (U) 6.0 [pH] 5.0 - 8.0 MG-Gastroen terology-[place] 6 I Work Phone: Protein (U) [Mass/Vol] Negative NEGATIVE MG -Gastroen terology-[place] 6 I Work Phone: RBC (U) [#/Vol] Negative NEGATIVE MG-Gastro en terology-[facility] 6 [facility] Work Phone: Specific gravity (U) [Rel density] 1.011 1 See Below MG-Gastroen terology-[facility] 6 [facility] Work Phone: Comment on above: Reference Range: 1.0 05 - 1.035 Urinalysis Positive Abnormal NEGATIVE MG-Gastroen terology-[facility] 6 [facility] Work Phone: Urinalysis 2.0 mg/dL above high threshold 0.0 - 1.9 MG-Gastroen terology-[facility] 6 [facility] Work Phone: Comment on above: Due [...] Urinalysis Negative NEGATIVE MG-Gastroen terology-[place] 6 [facility] Work Phone: Urinalysis HAZY CLEAR MG-Gastroen terology-[place] 6 [facility] Work Phone: Urinalysis, Microscopicon Urinalysis, Microscopic 1+ M G-Gastroen terology-[facility] 6 I Work Phone: Urinalysis, Microscopic [...] 09-16-2021 VAS LAB Venous Duplex Ultrasound DVT [place] [address] and Vascular Lab Report Lower Venous Duplex Ultrasound Patient Name: MORALES LEE Reading Physician: [id number] Arjun Romero MD, RPVI Study Date: 09/16/2021 Referring Physician: [id number] HARRISON RAGSDALE MRN/PID: [id number] PCP: Accession/Order#: [id number] CC Report to: Date of : 1975 Technologist: Isai Burleson RVT Gender: F Technologist 2: Admission Status: Outpatient Location Performed: [facility] Diagnosis/ICD: M79.89-Left leg swelling; M79.89-Right leg swelling Procedure/CPT: 76086 Peripheral venous duplex scan for DVT complete-58237 CONCLUSIONS: Right Lower Venous: No evidence of [...] Spontaneous/Phasic Peroneal Yes None PTV Yes None [id number] Arjun Romero MD, YOLIE Final Normal [facility] VAS LAB Venous Duplex Ultra sound for DVTon 09-16-2021 [facility] Venous Duplex Ultrasound for DVT MG-Gastroen terology-[place] 6 I Work Phone: No Panel Informationon 09-15 [email or web address] ?RetrieveTestByDateTime?P [email or web address]=[id number]&Date=1 09-05-2021&Time=19%3a14%3a 23%3a00&TestType=ECG&Site =1&OutputType=PDF&Ext=PDF MG-Gastroen terology-[place] 6 [...] 6 [facility] Work Phone: 476 1 MG-Gastroen terology-[place] 6 [facility] Work Phone: 396 1 MG-Gastroen terology-[place] 6 I Work Phone: 82 1 MG-Gastroen terology-[place] 6 [facility] Work Phone: 150 1 MG-Gastroen terology-[place] 6 I Work Phone: 87 1 MG-Gastroen terology-[place] 6 I Work Phone: [email or web address]:808 [email or web address] ?RetrieveTestByDateTime?P abbbzmGG=[id number]&Date=1 09-05-2021&Time=19%3a14%3a 42%3a00&TestType=ECG&Site =1&OutputType=PDF&Ext=PDF MG-Gastroen terology-[place] 6 [...] (Advanced Practice Nurse) done by Concetta Shi ([facility]) Admission - Reconciliation: 15-Sep-2021 19:03 by: Fidel [...] to Incomplete: 30-Sep-2021 14:18 by: Concetta Shi ([facility]) Admission - Reconciliation: 30-Sep-2021 14:20 by: Concetta Shi ([facility]) Home MedicationsEnteredLast Dose TakenReconciled with current Order Reconciliation Comment/ Additional Information acetaminophen 325 mg oral tablet 2 tab(s) orally every 6 hours, as needed while having post operative [id number] Reviewed and Held Ambien CR 12.5 mg oral tablet, extended release 1 tab(s) oral xbe16-Pty-7313 Zolpidem Tablet (AMBIEN)DOSE = 10 mg Oral At BedtimeNotes from Pharmacy: Substitution For Zolpidem (Ambien CR) 12.5 mg at Bedtime Ambien CR 12.5 mg oral tablet, extended release continued as the inpatient order Zolpidem Ankle Foot Orthosis for foot rxhq33-Sdl-2406 Reviewed and Held betamethasone topical valerate 0.1% topical cream 1 milena topical prn 15-Sep-2021 EnteredInError Reviewed and Held Bilateral Prafos - orthotics to fit, - ICD 10: R26.0, M21.37, M62.81 30-Sep-2021 Reviewed and Held calcium-vitamin D 500 mg-200 intl units (5 mcg) oral tablet 1 tab(s) orally 4 times a ogo32-Qkb-0339 Calcium 500 mg - Vitamin D 200 [...] times a day, as needed for muscle pudlfe99-Ehw-6468 Cyclobenzaprine Tablet (FLEXERIL)DOSE = 10 mg Oral [...] topical 1% topical gel 1 milena topical atk63-Dgf-0579 Reviewed and Held DULoxetine 30 mg oral [...] 2 tab(s) orally once a day, As Bsmryg93-Hbp-8813 Reviewed and Held gabapentin 800 mg oral tablet 1 tab(s) oral 3 times a zsq93-Lks-0503 Gabapentin Capsule (NEURONTIN)DOSE = 800 mg Oral 3 Times a Day gabapentin 800 mg oral tablet continued as the inpatient order Gabapentin LEFT AFO -Orthotics to fit, ICD 10: M21.7410-Lfn-1899 Reviewed and Held lidocaine 5% topical film Apply topically to affected area once a day, As Needed near surgical incision for incisional pain 15-Sep-2021 EnteredInError Reviewed and Held lisinopril 20 mg oral tablet 1 tab(s) oral once a edl15-Glo-0809 Lisinopril Tablet (PRINIVIL, ZESTRIL)DOSE = 20 mg [...] - available over the counter at any kwvalfku29-Ept-3812 Reviewed and Held RIGHT AFO - Orthotics to fit, - M21.2065-Des-6000 Reviewed and Held sennosides-docusate 8.6 mg-50 mg oral tablet 2 tab(s) orally 2 times a day , -Take while using oxycodone for post operative pain to prevent contipation 15-Sep-19 (more content not included)... Normal [facility] Radiologyon 09-15-2021 XR Chest Single view Normal MG-G astroen terology-[place] 6 [facility] Work Phone: TH CHEST 1 VIEWon 09-15-2021 TH CHEST 1 VIEW Patient Name: MORALES LEE STUDY: CHEST 1 VIEW; 09/15/2021 7:21 pm INDICATION: pre-op . COMPARISON: 12/26/2020. ACCESSION NUMBER(S): [id number] ORDERING CLINICIAN: TOSHA BORJA FINDINGS: CARDIOMEDIASTINAL SILHOUETTE: [...] Electronically signed by: Esther PEDERSON MD Normal [facility] Established Visit (Neurosurg ariana)on 09-08-2021 [...] in the Neurosurgery Spine Clinic at the [facility]. She is a very pleasant 46-year-old [...] obvious instability (more content not included)... Normal [employer] No Panel Informationon 09-08 Normal MG-Neurosur samsonRenewDataMiguel Work Phone: Please click on the link [...] and T6-L4 Fusion. COMPARISON: None. ACCESSION NUMBER(S): [id number] ORDERING CLINICIAN: LEX FREDERICK FINDINGS: Fused PA [...] Electronically signed by: JOSEPH SALAZAR MD Normal [facility] Tobacco Screening.on Fall risk assessment b) One or more fall s in the last year MG-Nuha daviesRenewDataMiguel Work Phone: Tobacco use status CPHS a) Yes M G-Vertishearjudy samsonKooper Family Whiskey CompanyMiguel Work Phone: Established Visit (Neurosurg ariana)on 05-05-2021 Established Visit (Neurosurgery) History of Present Illness I just had the pleasure of seeing Mrs. Jesus villarreal in the Neurosurgery Spine Clinic at the [facility]. She is a very pleasant 45 -year-old female, who recently underwent a L1 Vertbrectomy and T6-L4 Fusion with me on 12/26/2020 and is status post 4 Months out from her surgery. Today's visit was a virtual visit with the patient at her home and myself at [facility]. She mentions that overall she is [...] in Ms. LEE care. Lex Frederick MD, [facility], FAANS Director - Minimally Invasive Spine Surgery [facility] Head Of Drama of Neurological Surgery [facility] [employer] [place], [place] Some of this note was completed using COLOURlovers voice recognition technology and sometimes the software [...] May 05 2021 9:18PM EST (Author) Normal [employer] Established Visit (Neurosurg ariana)on 01-08-2021 Established Visit [...] in the Neurosurgery Spine Clinic at the [facility]. She is a very pleasant 45 [...] the further treatment plan. Lex Frederick MD, [facility], FAANS Director - Minimally Invasive Spine Surgery [facility] Forensic Ballistics Expert of Neurological Surgery [facility] [employer] [place], [place] Some of this note was completed using COLOURlovers voice recognition technology and sometimes the software [...] Unspecified cord compression. COMPARISON: None. ACCESSION NUMBER(S): [id number] ORDERING CLINICIAN: LEX FREDERICK TECHNIQUE: Multiplanar and [...] of the thoracic spine. Electronically signed by: ELNNY HAGER MD [facility] NR MRI L-SPINE WOon 12-12-19 21 NR MRI L-SPINE WO Patient Name: MORALES LEE STUDY: MRI L-SPINE WO; ; 12/11/2020 1:38 pm INDICATION: Lumbar Pain Scoliosis, unspecified Low back pain. COMPARISON: CT lumbar spine from 10/07/2020. MRI lumbar spine from 03/11/2016. ACCESSION NUMBER(S): [id number] ORDERING CLINICIAN: LEX FREDERICK TECHNIQUE: MRI of [...] multiple levels. This study was interpreted at [facility]. Electronically signed by: WESLEY CARBAJAL MD [facility] Initial Visit (Neurosurgery) on 10-28-2020 Initial Visit [...] Status:Resulted - Preliminary,Retrospective By Protocol Authorization; Done: [id number] 12:00AM Reason: Unspecified for Xray Spine, entire thoracic/lumbar, include skull, cervical and sacral spine when performed, 2 or 3 view Radiologist to Determine Optimal Study : Y What are the patient's signs and symptoms? : Lumbar Pain SocHx: Current smoker Tobacco Use Screening; Status:Complete; Done: [id number] Patient Discussion/Summary It was a pleasure to see Ms. LEE at the Neurosurgery Spine Clinic at [facility]. Ms. 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 She now has been having severe symptoms [...] evaluated by another spine surgeon at the [facility] who recommended urgent surgery for [...] even walk (more content not included)... Normal [facility] 07-10-[facility] CNPN Telephone (SPNMMN) ----- MORALES LEE ([id number]) 1975 F Date Time Provider Department 07/10/19 DIXIE TEE [facility] During your visit today, we recorded [...] Order(s):CONSULT TO ORTHOPAEDIC SURGERY [[id number]] Order #: [id number]: 1 Prescriptions as of 07/10/2019 Sig: LISINOPRIL [...] Status:Closed by DIXIE TEE MD on 07/10/19 [facility] CNOVon 07-09-2019 CNOV Office Visit (SPNSMN ) ----- MORALES LEE ([id number]) 1975 F Date Time Provider Department 07/09/19 9:30 AM STEVENSON QUAN SPNSMN During your visit today, we recorded the following information about you: Pulse Respiration Blood pressure Weight 89/minute 18/minute 124/74 95.8 kg Height 1.499 m Stevenson Quan MD 07/09/2019 2:56 PM Signed SPINE SURGERY OUTPATIENT CONSULT SERVICE DATE: 07/09/2019 PCP: No primary care provider on file. REFERRING PROVIDER: Dixie Tee MD [address] [facility] [address] Consult requested for an opinion regarding the [...] with the patient or the patient?s personal consumer sales representative. The patient has elected to schedule surgery at this time or intends to call the office with a surgical date. Shared decision making occurred while obtaining informed consent. 1. Imaging: Thoracic CT Without Contrast 2. Encouraged to call the office with any questions or concerns 3. 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 OBSOLETEon 07-09-2019 OBSOLETE Procedure (EMGMN) ----- MORALES LEE ([id number]) 1975 F Date Time Provider Department 07/09/19 7:45 AM EMG 1 NEUR MAIN EMGMN During your visit today, we recorded the following information about you: Referring Provider: DIXIE TEE [[id number]] Allergies As of Date: 07/09/2019 Noted Allergy [...] upper limb [G56.21] Order(s):EMG(NEURO/NI) [[id number]] Order #: [id number]: 1 Prescriptions as of 07/09/2019 Sig: LISINOPRIL [...] by JHON EASON MD on 07/09/19 Normal [facility] PROGRESSon 07-09-2019 PROGRESS HNO ID: [id number] Author: Stevenson Quan Service: ? Author Type: Physician Type: Progress Notes Filed: 07/09/2019 2:56 PM Note Text: SPINE SURGERY OUTPATIENT CONSULT SERVICE DATE: 07/09/2019 PCP: No primary care provider on file. REFERRING PROVIDER: Dixie Tee MD [address] [facility] [address] Consult requested for an opinion regarding the [...] with the patient or the patient?s personal consumer sales representative. The patient has elected to [...] 09, 2019 TIME: 10:24 AM PAGER: Normal [facility] OT-XR DEXA BONE DENSITY IMPO RTon 07-06-2019 OT-XR DEXA BONE DENSITY IMPORT Images were obtained outside of [facility] [id number] Normal [facility] CASE MGT INIT [facility] 2018 CASE MGT INIT [facility] HNO ID: [id number] Author: Kimberly (Rn) MERA Dunaway Service: ? Author Type: Registered Nurse Type: Care Mgt Initial Assessment Filed: 06/20/2019 12:25 PM Note Text: CARE MANAGEMENT: ASSESSMENT AND DISCHARGE PLAN SERVICE DATE: 06/20/2019 SERVICE TIME: 12:21 PM PRIMARY CARE PHYSICIAN: No primary care provider on file. 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 No Advance Directive: Current Advance Directive: None Counter Dish Carrier Attempted to Assist with AD Completion: Yes [...] Extended Emergency Contact Information Primary Emergency Contact: eBlinda Lee Address: [address] [place] [address] [facility] Mobile Relation: Spouse Supportive: Yes Other [...] 0 I feel financially burdened by my nqn-hq-sagqde expenses for my prescription medication: Disagree completely [...] with . Does not utilize any DME, group home or community resources. Has d/c transportation via . Anticipate transitional care plan of home, no skilled needs identified at this time. TCC will remain available to assist as needed with transition planning. SIGNATURE: Kimberly Dunaway RN PATIENT NAME: Morales Lee DATE: June 20, 2019 TIME: 12:21 PM PAGER/CONTACT #: [phone] Normal [facility] CBCon 06-20-2019 Erythrocyte distribution width (RBC) [Ratio] 12.6 % Normal 11.5-15.0 [facility] Comment on above: Performed By: #### C BC #### [place] [phone] Hematocrit (Bld) [Volume fraction] 48.7 % High 36.0-46.0 [facility] Comment on above: Performed By: #### C BC #### [place] [phone] Hemoglobin (Bld) [Mass/Vol] 16.8 g/dL High 11.5-15.5 [facility] Comment on above: Performed By: #### C BC #### [place] [phone] MCH (RBC) [Entitic mass] 31.1 pG Normal 26.0-34.0 [facility] Comment on above: Performed By: #### C BC #### [place] [phone] MCHC (RBC) [Mass/Vol] 34.5 g/dL Normal 30.5-36.0 [facility] Comment on above: Performed By: #### C BC #### [place] [phone] MCV (RBC) [Entitic vol] 90.0 fL Normal 80.0-100.0 [facility] Comment on above: Performed By: #### C BC #### [place] [phone] Platelet mean volume (Bld) [Entitic vol] 10.6 fL Normal 9.0-12.7 [facility] Comment on above: Performed By: #### C BC #### [place] [id number] [place] [address] Platelets (Bld) [#/Vol] 334 10*3/uL Normal 150-400 [facility] Comment on above: Performed By: #### C BC #### [place] [address] RBC (Bld) [#/Vol] 5.41 10*6/uL High 3.90-5.20 [facility] Comment on above: Performed By: #### C BC #### [place] [address] WBC (Bld) [#/Vol] 10.85 10*3/uL Normal 3.70-11.00 [facility] Comment on above: Performed By: #### C BC #### [place] [address] CONSULTon 06-20-2019 CONSULT HNO ID: [id number] Author: Evelyn Resendez Service: Pain Management Author [...] controlled substances - including suboxone - from [facility]. Of note, pt has followed [...] me to leave. She is now leaving [place]. 3. Will sign off _ SUBJECTIVE CHIEF [...] activity was identified. 06/20/2019 by Evelyn Resendez APRN.[employer]IR[employer] TOWER CONTROLLER PAST MEDICAL HISTORY Diagnosis Date - Degenerative [...] 20, 2019 TIME: 8:24 AM PAGER/CONTACT #: [phone] (M-F 8-5) [facility] CT BRAIN WO IVCONon 06-20-[address] BRAIN WO IVCON * * *Final Report* * * DATE OF EXAM: Jun 20 2019 1:31AM [facility] 0504 - CT BRAIN WO IVCON [...] No large cortical infarct or acute hemorrhage. High Tension Tester: ADITYA Transcribe Date/Time: Jun 20 2019 1:33A Dictated by : DAVONTE MOY MD This examination was interpreted and the report reviewed and electronically signed by: DAVONTE MYO MD on Jun 20 2019 1:35AM EST [id number] [facility] ECG COMPLETEon 06-20-2019 ECG COMPLETE NAME : MORALES LEE PID : [id number] : 1975 Gender : Female Race : ORD : [id number] Procedure Date : Jun 19 2019 23:57:03 Edit Date : Jun 20 2019 07:51:18 Diagnosis:Sinus rhythm Normal ECG no STEMI 1200a Confirmed by MD ARREDONDO LISA ([id number]), assistant production editor FOREST WALTON ([id number]) on 06/20/2019 7:51:18 AM Ventricular Rate : 85 BPM Atrial Rate : 85 BPM P-R Interval : 137 ms QRS Duration : 91 ms Q-T Interval : 365 ms QTC Calculation(Bazett) : 434 ms P Wilsons : 51 degrees R Wilsons : -13 degrees T Wilsons : 61 degrees Test Reason : Chest Pain Location : 302 : ED AVED-1 Overread By : MD ARREDONDO LISA Edited By : FOREST WALTON Referred By : , Acquired by : [id number], [facility] ED NOTEon 06-20-2019 ED NOTE HNO ID: [id number] Author: Yuki Mckenzie) MERA Cruz Service: ? Author Type: Registered Nurse Type: ED Notes Filed: 06/20/2019 1:40 AM Note Text: Patient got CT, it is still pending and Jessie MESA said ok to transfer to [facility] with out results pending. Patient agreeing and understanding of transfer. updated on POC and transfer via telephone. DM here to take patient at this time. Pain is not improved at time of transfer. [facility] ED NOTE HNO ID: [id number] Author: Yuki Cruz RN Service: ? Author Type: Registered Nurse Type: ED Notes Filed: 06/20/2019 1:15 AM Note Text: Clean catch urine specimen obtained and sent. [facility] ED NOTE HNO ID: [id number] Author: Yuki Cruz RN Service: ? Author [...] with getting transferred to another facility. [facility] ED NOTE HNO ID: [id number] Author: Yuki Mckenzie) MERA Cruz Service: ? Author Type: Registered Nurse Type: ED Notes Filed: 06/20/2019 3:28 AM Note Text: Patient stated Valium did not help. She continues to be in pain and upset. She wanted to speak with someone in charge and update on POC. [facility] HISTORY PHYSICALon 9 HISTORY PHYSICAL HNO ID: [id number] Author: Talita Wesley RN Service: General Internal [...] tightness that is constant. Notices a decreased lens fabricating machine tender strength and weakness in left hand. She [...] pressure, palpitations, leg swelling. Denies hx of MA. GI: Denies nausea, vomiting, diarrhea, abdominal pain, [...] rotation 40/80% Decreased left C5-C7 sensation. Left lens fabricating machine tender strength 2/5. Right lens fabricating machine tender strength 5/5. UE DTR intact and equal. [...] tightness into left arm, weak left hand lens fabricating machine tender strength, and worsening severity of numbness/tingling -Afebrile [...] Needs confirmed with patient pharmacy. Patient uses [facility] in [place], [place]. Patient provided #[phone]. Will call in am to confirm dose. Nicotine Abuse Assessment AND Plan: Smokes 1 1/2 PPD for 20 years. Smoking cessation advised. Nicotine patch ordered. Medication and Non-Pharmacologic VTE Prophylaxis/Anticoagulant s VTE Prophylaxis: VTE prophylaxis appropriate SIGNATURE: Talita Wesley APRN.CNP PATIENT NAME: Morales Lee DATE: June 20, 2019 TIME: 2:58 AM PAGER/CONTACT #: U # [phone] [facility] NURSING PROGon 06-20-2019 NURSING PROG HNO ID: [id number] Author: Austyn (Rn) MERA Berumen Service: Nursing Author Type: Registered Nurse Type: Nursing Progress Note Filed: 06/20/2019 3:10 PM Note Text: Nursing Progress Note Patient Name: Morales Lee Patient Location: [id number] -02 Daily Note:06/20/2019 -pt is upset regarding [...] note was completed by: AUSTYN BERUMEN RN [facility] NURSING PROG HNO ID: [id number] Author: Austyn Mckenzie) MERA Berumen Service: Nursing Author Type: Registered Nurse Type: Nursing Progress Note Filed: 06/20/2019 8:10 AM Note Text: Nursing Progress Note Patient Name: Morales Lee Patient Location: [id number] -02 Daily Note:06/20/2019 -assumed care of patient, pt is requesting her suboxone. We have to call to verify dosage. -MERA Acosta called pharmacy provided by night RETURN TO SERVICE INSPECTOR and the pharmacy does not open until 9am. We will call back to verify dose later. -Dr. Kwon called to speak with this RN, he will be in to see the patient later today. This note was completed by: AUSTYN BERUMEN RN [facility] NURSING PROG HNO ID: [id number] Author: Guadalupe Herbert RN Service: ? Author Type: Registered Nurse Type: Nursing Progress Note Filed: 06/20/2019 4:33 AM Note Text: Nursing Progress Note Patient Name: Morales Lee Patient Location: [id number] -02 Daily Note:AANDO x 3. C/O left [...] note was completed by: Guadalupe Herbert RN [facility] PROGRESSon 06-20-2019 PROGRESS HNO ID: [id number] Author: Sedrick Martin Service: General Internal Medicine [...] rales. Cor:RSR, no murmurs. 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 DATA: Diagnostic tests [...] VTE Prophylaxis/Anticoagulant s 06/20/19399 pneumatic compression stockings (ok,nv) 06/20/19399 activity - mobilize patient ([place]) VTE Prophylaxis: appropriate SIGNATURE: Sedrick Martin MD PATIENT NAME: Morales Lee DATE: June 20, 2019 TIME: 10:41 AM PAGER: [facility] PROGRESS HNO ID: [id number] Author: Sedrick Martin Service: General Internal Medicine Author Type: Physician Type: Progress Notes Filed: 06/20/2019 8:25 AM Note Text: As per Pain Management Consult still pending, I was notified by Pain Management to resume the pt.' s home Suboxone dosage until pt. Seen later today. Normal [facility] Troponin Ton 06-20-2019 Troponin T.cardiac [Mass/Vol] ug/L Normal 0.000-0.[address] [place] [address] Comment on above: Performed By: #### T NT #### [place] [address] Troponin T.cardiac [Mass/Vol] ug/L Normal 0.000-0.[address] [place] [address] Comment on above: Performed By: #### T NT #### [place] [phone] Basic Metabolic Panlon 06-19 Anion gap [Moles/Vol] 14 mmol/L Normal 9-18 [facility] Calcium [Mass/Vol] 10.3 mg/dL High 8.5-10.2 [facility] Chloride [Moles/Vol] 96 mmol/L Low 97-105 [facility] CO2 [Moles/Vol] 29 mmol/L Normal 22-30 [facility] Creatinine [Mass/Vol] 0.59 mg/dL Normal 0.58-0.96 [facility] eGFR- Amer. >60 [facility] GFR/1.73 [...] Hospital Comment on above: Result Comment: The [place] Diabetes Association (ADA) provides guidance for cutoff [...] Standards of Medical Care in Diabetes 2016, [place] Diabetes Association. Diabetes Care. 2016.39(Suppl 1). Potassium [Moles/Vol] 3.7 mmol/L Normal 3.7-5.1 [facility] Sodium [Moles/Vol] 139 mmol/L Normal 136-144 [facility] Urea nitrogen [Mass/Vol] 7 mg/dL Normal 7-21 [facility] CBC and Differentialon 06-19 Abs Baso 0.09 k/uL Normal <0.11 [facility] Abs [place] 0.61 k/uL Normal <0.87 [facility] Abs Neut 7.56 k/uL High 1.45-7.50 [facility] Absolute nRBC <0.01 Normal <0.01 [facility] Basophils/100 WBC (Bld) 0.7 % [facility] DTYPE Auto Diff [facility] [...] MCHC (RBC) [Mass/Vol] 34.2 g/dL Normal 30.5-36.0 [facility] MCV (RBC) [Entitic vol] 87.7 fL Normal 80.0-100.0 [facility] Monocytes/100 WBC (Bld) 4.6 % [facility] Neutrophils/100 WBC (Bld) 57.4 % [facility] NRBCs 0.0 /100 WBC Normal 0 [facility] Platelet mean volume (Bld) [Entitic vol] 10.1 fL Normal 9.0-12.7 [facility] Platelets (Bld) [#/Vol] 370 10*3/uL Normal 150-400 [facility] RBC (Bld) [#/Vol] 6.00 10*6/uL High 3.90-5.20 [facility] WBC (Bld) [#/Vol] 13.18 10*3/uL High 3.70-11.00 [facility] ED NOTEon 06-19-2019 ED NOTE HNO ID: [id number] Author: Yuki WilksRn) MERA Cruz Service: ? Author Type: Registered Nurse Type: ED Notes Filed: 06/20/2019 3:27 AM Note Text: Patient has requested valium, she says that she takes it at home. [facility]ago updated. [facility] ED NOTE HNO ID: [id number] Author: Yuki WilksRn) MERA Cruz Service: ? Author Type: Registered Nurse Type: ED Notes Filed: 06/20/2019 3:27 AM Note Text: Patient is complaining of nausea. She is requesting her saboxon as well and Biago was updated on request. [facility] ED NOTE HNO ID: [id number] Author: Yuki WilksRn) MERA Cruz Service: ? Author Type: Registered Nurse Type: ED Notes Filed: 06/19/2019 7:54 PM Note Text: Said that after her surgery in 2016 her left pinky and ring finger are numb but she said lately her other fingers on that hand have been getting numb as well. [facility] ED NOTE HNO ID: [id number] Author: Vanessa WilksRn) MERA Ruiz Service: ? Author Type: Registered Nurse Type: ED Notes Filed: 06/19/2019 6:48 PM Note Text: Patient has chronic neck pain for three years. Saw spine doctor 06/12/2019 for the same had x rays. Denies any new injury. States pain goes into left arm. Arrived via wheelchair [facility] ED PROV NOTEon 06-19-2019 ED PROV NOTE HNO ID: [id number] Author: Tracy Arredondo Service: Emergency Medicine Author [...] light touch over bilateral lower extremities. 3/5 lens fabricating machine tender, bicep, tricep strength over LUE. Decreased sensation to light touch over left upper extremity in median, radial, and ulnar nerve distribution. 5/5 lens fabricating machine tender, bicep, tricep strength of R UE. Skin: [...] neurosurgical consult as previous notes from her pharmacy specialist recommend obtaining EMG and possible further [...] a neurosurgical consult she warrants transfer to [facility] for further management of her condition. We have low suspicion for stroke at this time as pain appears to be radicular in nature and she has had worsening progression of her symptoms with documented notes from spine (Dr. Álvarez) suggesting this worsening pain and numbness. The AIRPORT TOWER CONTROLLER, Talita, at [facility] recommended we obtain a CT brain and she must rule out any acute intercranial abnormality that may be contributing to the patient's symptoms. Therefore, this study was ordered and will be followed up by the night team especially if there is any acute intracranial abnormality. As long as there is no acute intracranial abnormality she will be transferred to [facility] for further evaluation and management of her condition. Patient voiced understanding was in agreement with the above plan. This patient's case was discussed with Dr. Arredondo who personally evaluated the patient supervised her care. The patient was TRANSFERRED to: [facility] Condition at time of disposition: stable SIGNATURE: ONRMA [place] 06/20/19 0026 Attending Note I have personally performed a face to face assessment of the patient and have reviewed the PA/CLERK SECRETARY note. My schofield findings include: History is [...] of 5 strength left upper extremities in lens fabricating machine tender strength as well as biceps and triceps [...] worsening neck pain we will place her [facility] observation for cardiac rule out as well [...] and requested by the observation provider at [facility] as they were concerned about stroke. However I doubt this and did not feel this was necessary however it is currently pending and patient will be transferred to [facility] if this is unremarkable. Signature: Tracy Arredondo DO Date: 06/20/2019 Time: 12:26 AM Tracy Arredondo 06/20/19 0033 [facility] Magnesiumon 06-19-2019 Magnesium [Mass/Vol] 2.0 mg/dL Normal 1.7-2.3 [facility] Troponin Ton 06-19-2019 Troponin T.cardiac [Mass/Vol] ug/L Normal 0.000-0.02 9 [facility] CNOVon 06-12-2019 CNOV Office Visit (SPNMMN ) ----- MORALES LEE ([id number]) 1975 F Date Time Provider Department 06/12/19 [...] [Z98.890] Order(s):PATIENT PLACED ON SPINE CARE PATH [1895764] Order #: [id number]: 1 XR SCOLIOSIS PA STAND/LAT 2V [[id number]] Order #: [id number] FUTURE EMG(NEURO/NI) [[id number]] Order #: [id number]: 1 FUTURE CONSULT TO SPINE SURGERY [[id number]] Order #: [id number]: 1 FUTURE Prescriptions as of 06/12/2019 Sig: [...] Status:Closed by DIXIE TEE MD on 06/12/19 [facility] PROGRESSon 06-12-2019 PROGRESS HNO ID: [id number] Author: Robert Mittal (Rt) Service: Radiology Author Type: Tack Cutter Type: Progress Notes Filed: 06/12/2019 10:10 AM [...] RT Daxa June 12, 2019 10:[address] [facility] PROGRESS HNO ID: [id number] Author: Dixie Tee Service: ? Author Type: [...] healed incisions. Chest: symmetric expansion Data Review: [facility] records reviewed Care everywhere Lumbar [...] June 12, 2019 TIME: 8:12 AM [facility] XR SCOLIOSIS 2V PA STAND/LAT on [...] changes and multilevel compression deformities as described. High Tension Tester: PSCB Transcribe Date/Time: Jun 12 2019 4:36P Dictated by : CAROLINA MOJICA MD This examination was interpreted and the report reviewed and electronically signed by: CAROLINA MOJICA MD on Jun 12 2019 4:39PM EST [id number] [facility] PROGRESSon 05-14-2019 PROGRESS HNO ID: [id number] Author: Laury Levin Service: ? Author Type: Physician Director Experimental Medicine Type: Progress Notes Filed: 05/14/2019 1:26 PM [...] to rule out cubital tunnel syndrome. [facility] PROGRESSon 05-09-2019 PROGRESS HNO ID: [id number] Author: Kathia Kelly Service: ? Author Type: ? Type: Progress Notes Filed: 05/14/2019 1:26 PM Note Text: Patient name: Morales Lee Are you being referred by a [facility] Provider or Pain Management Provider at [facility]? No If answer is YES please schedule directly with surgeon, triage does not need to be completed. Is this a self-referral No If not, who is the Referring Provider: Dr. Hendricks/ [facility] MRI/CT/myelogram within 12 months: Yes If No , please refer to medical spine or PCP to complete above imaging, triage does not need to be completed Imaging viewable in Epic: No If not, please provide [phone] to fax in imaging reports for review. [...] will fax imaging report and op notes. [phone] [facility] [address]-CT C-SPINE WO CON IMPORTo n 02-13-2019 CT-CT C-SPINE WO CON IMPORT Images were obtained outside of [facility] [id number] [facility] CT-CT L-SPINE WO CON IMPORTo n 02-13-2019 CT-CT L-SPINE WO CON IMPORT Images were obtained outside of [facility] [id number] [facility] Vital Signs Date Time Vital Sign Value Performing Clinician Facility 05-14-2024 09:48-0400 Body height 157.5 cm Genny Orosco RETURN TO SERVICE INSPECTOR Work Phone: [facility] 05-14-2024 09:48-0400 Body mass index (BMI) [Ratio] 34.75 kg/m2 Genny Orosco RETURN TO SERVICE INSPECTOR Work Phone: [facility] 05-14-2024 09:48-0400 Body temperature 96.69 [degF] Genny Orosco RETURN TO SERVICE INSPECTOR Work Phone: [facility] 05-14-2024 09:48-0400 Body weight 86.18 kg Genny Arizak RETURN TO SERVICE INSPECTOR Work Phone: [facility] 05-14-2024 09:48-0400 Diastolic blood pressure 54 mm[Hg] Genny Barrosopatrick RETURN TO SERVICE INSPECTOR Work Phone: [facility] 05-14-2024 09:48-0400 Heart rate 72 /min Genny Guidrytrick RETURN TO SERVICE INSPECTOR Work Phone: [facility] 05-14-2024 09:48-0400 Systolic blood pressure 104 mm[Hg] Genny Guidrytrick RETURN TO SERVICE INSPECTOR Work Phone: [facility] 06-07-2022 12:48-0400 Diastolic blood pressure 83 mm[Hg] No Pcp Required [facility] 06-07-2022 12:48-0400 Heart rate 67 /min No Pcp Required [facility] 06-07-2022 12:48-0400 Respiratory rate 16 /min No Pcp Required [facility] 06-07-2022 12:48-0400 SaO2% (BldA) [Mass fraction] 96 % No Pcp Required [facility] 06-07-2022 12:48-0400 Systolic blood pressure 148 mm[Hg] No Pcp Required [facility] 01-06-2022 10:51-0400 Blood Pressure Location NATALIA MANNING [facility] 01-06-2022 10:51-0400 Diastolic blood pressure 86 mm[Hg] NATALIA MANNING [facility] 01-06-2022 10:51-0400 Heart rate 86 /min NATALIA MANNING [facility] 01-06-2022 10:51-0400 Respiratory rate 16 /min NATALIA MANNING [facility] 01-06-2022 10:51-0400 Systolic blood pressure 132 mm[Hg] NATALIA MANINNG [facility] 09-08-2021 14:15-0500 Body height 149.86 cm No PCP None [facility]-Neurosurgery- Ah uja Work Phone: 09-08-2021 14:15-0500 Body mass index (BMI) [Ratio] 36.96 kg/m2 No PCP None NN-Zspoinwwmajb-Qg uja Work Phone: 09-08-2021 14:15-0500 Body surface area Derived from formula 1.78 m2 No PCP None WO-Tpagicazclmy-Aa uja Work Phone: 09-08-2021 14:15-0500 Body weight 83.01 kg No PCP None [facility]- Ah uja Work Phone: 09-08-2021 14:15-0500 Diastolic blood pressure 68 mm[Hg] No PCP None NV-Ztshcsfihnmt-Lo uja Work Phone: 09-08-2021 14:15-0500 Heart rate 96 /min No PCP None [facility]- Ah uja Work Phone: 09-08-2021 14:15-0500 Respiratory rate 16 /min No PCP None [facility]surgery -Ah uja Work Phone: 09-08-2021 14:15-0500 Systolic blood pressure 115 mm[Hg] No PCP None TB-Jfrerygwtjvi-Wd uja Work Phone: 09-08-2021 14:15-0500 0 1 No PCP None [facility]Ne[facility]surgery- Ah uja Work Phone: Comment on above: [facility] 01-01-2021 16:46-0400 Heart rate 111 /min No Pcp Required [facility] 01-01-2021 16:46-0400 SaO2% (BldA) [Mass fraction] 95 % No Pcp Required [facility] 01-01-2021 14:00-0400 Body temperature 96.8 [degF] No Pcp Required [facility] 01-01-2021 14:00-0400 Diastolic blood pressure 77 mm[Hg] No Pcp Required [facility] 01-01-2021 14:00-0400 Respiratory rate 18 /min No Pcp Required [facility] 01-01-2021 14:00-0400 Systolic blood pressure 114 mm[Hg] No Pcp Required [facility] Encounters Encounter Date Encounter Type Care Provider Facility Start: 07-12-2024 End: 07-15-2024 Clinisync Result Encounter Generic External Data Provider [facility] External Department Unsolicited Start: 07-12-2024 End: 07-15-2024 Clinisync Result Encounter Generic External Data Provider [facility] External Department Unsolicited Start: 06-08-2024 End: 06-08-2024 ambulatory Kathrine Patel RN [facility] r Start: 05-14-2024 End: 05-14-2024 Bamboo flowsheet Gneny Orosco RETURN TO SERVICE INSPECTOR Work Phone: [facility] Start: 05-14-2024 End: 05-22-2024 Clinisync Result Encounter Genny Arizak RETURN TO SERVICE INSPECTOR Work Phone: [facility] External Department Unsolicited Start: 05-14-2024 End: 05-22-2024 Clinisync Result Encounter Genny Arizak RETURN TO SERVICE INSPECTOR Work Phone: [facility] External Department Unsolicited Start: 05-14-2024 End: 05-14-2024 ambulatory GENNY GUIDRYTRICK Not Available Start: 05-14-2024 End: 05-14-2024 Office outpatient visit 15 minutes Genny Orosco RETURN TO SERVICE INSPECTOR Work Phone: [facility] Comment on [...] 03-27-2024 End: 03-31-2024 Pre-admission assessment LEX FREDERICK [facility] Start: 03-26-2024 End: 04-07-2024 Pre-admission assessment LEX FREDERICK [facility] Start: 02-13-2024 End: 02-13-2024 ambulatory SHAIKH [...] Danya Bingham [facility] Start: 11-22-2022 ambulatory MENDOSA H FAWWAD Facilit y:H1 Start: 11-09-2022 End: 11-09-[address] DEVANTE ELIZONDO . Facility:[facility] Start: 10-15-2022 End: 10-15-2022 ambulatory KYRA SILVA . Facility:[facility] Start: 09-24-2022 End: 09-24-2022 Patient encounter procedure Danya Bingham [facility] Start: 09-01-2022 Encounter for preprocedural laboratory [...] Patient encounter procedure Danya Bingham [facility] Yi Fang Education Start: 06-06-2022 End: 06-07-2022 Emergency department patient visit Yony Aguirre [facility] Adult ED Blue 45 Start: 05-31-2022 End: 05-31-[address] ALEXANDRU SORIA . Facility:[facility]1 Start: 05-19-2022 End: 05-19-2022 Off-Site Dnaya Bingham [facility] Start: 05-07-2022 End: 05-07-2022 ambulatory SHAIKH [...] 02-04-2022 Off-Site Danya Bingham [facility] Start: 01-11-2022 Chart Update No PCP None [facility] [place] Work Phone: Start: 01-11-2022 End: 01-11-2022 Patient encounter procedure Danya Bingham [facility] Start: 01-07-2022 AUDIT No PCP None MG-Neurosu [facility] [place] [address] Work Phone: Start: 01-06-2022 End: 01-06-2022 Patient encounter procedure NATALIA MANNING [facility] Start: 10-13-2021 AUDIT No PCP None MG-Neurosu [facility]-Miguel Work Phone: Start: 09-29-2021 AUDIT No PCP None MG-Gastroe nterology-B [facility] 6 [facility] Work Phone: Start: 09-15-2021 End: 10-02-2021 Evaluation and management of inpatient Dr. LEX FREDERICK Facility:[facility] Start: 09-09-2021 AUDIT No PCP [facility] Work [facility]: Start: 09-08-2021 Office outpatient vi sit 40 minutes No PCP None PA-Qqbkvsxmhtii-Zknvi Work Phone: Start: 05-05-2021 Postop follow up vis it related to original px No PCP None JO-Xysoulbusegk-RZLUK Work Phone: Start: 12-26-2020 End: 01-01-2021 Evaluation and management of inpatient Lex Frederick [facility] Kaley [id number] Rm [id number] 01 Preoperative state No PCP None MG-Neuros urgery-[facility] Work Phone: Procedures Date Procedure Procedure Detail Performing Clinician Start: 07-12-2024 Bacteria identified in Urine by Culture Generic External Data Provider Start: 05-18-2024 Drug test prsmv read direct optical obs pr date Genny Arizak RETURN TO SERVICE INSPECTOR Work Phone: Start: 05-14-2024 COMPLIANCE DRUG ANAL YSIS, UR Genny Orosco RETURN TO SERVICE INSPECTOR Work Phone: Start: 09-21-[address] EFRAIN FREDERICK Comment on above: Performed By: #### A FPA3 #### [facility] [address] [place] [address] Start: 09-21-[address] EFRAIN FREDERICK Comment on above: Order Comment: CUADRAJacque ESPINO, 09/21/2021 05:08TEST TYPE + SCREEN WAS CANCELLED, 09/21/2021 05:06 NO PHLEB ID ON TUBE. Result Comment: CALL ED MERA ESPINO, 09/21/2021 05:08 Performed By: #### A FPA3 #### [facility] [address] [place] [address] Start: 09-17-[address] EFRAIN FREDERICK Comment on above: Performed By: #### T +S #### [facility] [address] [place] [address] Start: 12-27-2020 End: 12-28-2020 Release Blood Product-Packed [...] Td Vaccines (2 - Td or Tdap) [facility] Start: 06-13-2024 End: 06-13-2024 Patient encounter procedure 06/13/2024 9:20 AM EDT Office Visit [facility] [address] [place] [id number] Lian Greer, FITNESS CENTER ATTENDANT-AIRPORT TOWER CONTROLLER [address] [place] [address] [facility] Start: 05-14-2024 End: 05-14-2024 Patient encounter procedure 05/14/2024 9:30 AM EDT Office Visit [facility] [address] [place] [address] Genny Orosco, TAWANNA [address] [place] [address] [facility] Start: 05-06-2024 Influenza vaccination [facility] Start: 10-17-2023 End: 10-17-2023 Patient encounter procedure 10/17/2023 6:30 PM EST Office Visit [facility] [address] [place] [address] Shaikh Obrien MD [address] [place] [id number] [facility] Start: 2023 Administration of varicella zoster vaccine Zoster (Shingles) Vaccine (1 of 2) [facility] Start: 05-06-2023 Influenza vaccination Influenza Vacc ine (#1) [facility] Start: 11-03-2021 POV, Provider: Lex Frederick, Status: Pen, Time: 2:00 PM POV, Provider: Lex Frederick, Status: Pen, Time: 2:00 PM PP-Tmvjmciojhqyvakh-F olwell [facility] Work Phone: Start: 10-07-2021 Admission to [facility] RNVISIT, Provider: NURSE VISIT ASHLEY 5TH,MGNEUROSURGERY, Status: Pen, Time: 10:15 AM PB-Cvmpndtgnuwsokix-T olwell 6 [facility] Work Phone: Start: 09-18-2021 [facility], Provider: Lex Frederick, Status: Pen, Time: 8:00 AM [facility], Provider: Lex Frederick, Status: Pen, Time: 8:00 AM MI-Eemuvqjucykq-Qgyto Work Phone: Start: 01-08-2021 Patient encounter procedure Neurosurgery Miguel Start: 12-31-2020 End: 01-01-2022 [facility] Comment on above: please place at beds geraldine for drain removal Start: 12-26-2020 End: 12-27-2021 Naloxone Injectable 0.4 mg IntraVenous Push Once ; (NARCAN)DOSE = 0.2 mg IntraVenous Push Once, PRN patient is unarousable, and respiratory rate lessClinician Notes: HOLD RN INTAKE Infusion and notify H.O. immediately Start: 26-Dec-2020 End: 26-Dec-2021 Ordered: 26-Dec-2020 Nabil Awan Intent Comments: HOLD RN INTAKE Infusion and notify H.O. immediately [facility] Comment on above: HOLD RN INTAKE Infusion an d notify H.O. immediately Start: 2013 Screening for malign ant neoplasm of breast Mammogram [facility] Start: 2003 Screening for malign ant neoplasm of cervix [facility] Start: 1994 Screening for malign ant neoplasm of cervix Pap Smear [facility] Start: 1991 Adult BMI Screening Adult BMI Screen ing [facility] Start: 1985 Depression Screening Depression Scre ening [facility] Start: 1985 Tobacco Screening Tobacco Screening [facility] Start: 1973 Screening for malign ant neoplasm of colon [facility] Bacteria identified in Urine by Culture URINE CULTURE, ROUTINE Lab Routine 07/12/2024 2:30 PM EST [facility] Immunizations Immunization Date Immunization Notes Care Provider Delfino chu 02-22-2020 tetanus toxoid, redu luis diphtheria toxoid, and acellular pertussis vaccine, adsorbed Danya Bingham [facility] 12-05-2018 hepatitis A vaccine, adult dosage Danya Lujacque [facility] Payers Date Payer Category Payer [facility] er [id number] 2012 Unknown 1973 Unknown [id number] 2.16.840.1.302462.3.579.2 .356 1973 Unknown [id number] 2.16.840.1.238632.3.579.2 .356 1973 Unknown [id number] 2.16.840.1.896227.3.579.2 .593 1973 Unknown [id number] 2.16.840.1.074503.3.579.2 .593 1973 Unknown [id number] 2.16.840.1.671854.3.579.2 .593 1973 Unknown [id number] 2.16.840.1.681680.3.579.2 .593 1973 Unknown [id number] 2.16.840.1.373189.3.579.2 .593 1973 Unknown [id number] 2.16.840.1.912545.3.579.2 .593 1973 Unknown [id number] 2.16.840.1.386825.3.579.2 .593 1973 Unknown [id number] 2.16.840.1.828070.3.579.2 .593 1973 Unknown [id number] 2.16.840.1.699563.3.579.2 .593 1973 Unknown [id number] 2.16.840.1.259508.3.579.2 .593 1973 Unknown [id number] 2.16.840.1.412288.3.579.2 .593 1973 Unknown [id number] 2.16.840.1.644408.3.579.2 .593 1973 Unknown [id number] 2.16.840.1.963743.3.579.2 .593 1973 Unknown [id number] 2.16.840.1.170850.3.579.2 .593 1973 Unknown [id number] 2.16.840.1.071959.3.579.2 .593 1973 Unknown [id number] 2.16.840.1.519337.3.579.2 .593 1973 Unknown [id number] 2.16.840.1.297102.3.579.2 .593 1973 Unknown [id number] 2.16.840.1.972273.3.579.2 .1046 1973 Unknown [id number] 2.16.840.1.950684.3.579.2 .727 1973 Unknown [id number] 2.16.840.1.613893.3.579.2 .1259 1973 Unknown [id number] 2.16.840.1.652721.3.579.2 .1259 1973 Unknown [id number] 2.16.840.1.889224.3.579.2 .1259 1959 Unknown [id number] Social History Date Type Detail Facility [facility] [place] Tobacco smoking consumption unknown [facility] Start: 08-01-2023 End: 02-13-2024 History of drug use History of drug use ML-Volzpgrwcvlx-KVTK C Work Phone: Start: 01-05-2016 End: 02-13-2024 Tobacco smoking status Smokes tobacco daily (finding) [facility] Comment on above: 1ppd 1ppd Start: 08-08-2023 End: 02-13-2024 Sex Assigned At Female [facility] History of tobacco use Cigarette Smoker [facility] Start: 08-08-2023 End: 02-13-2024 Alcohol intake Lifetime non-drinker (finding) [facility] Start: 1975 Sex Assigned At Not on file [facility] Childcare Unknown [facility] History of tobacco use [...] 11-26-2022 Functional Status N/A [facility] 07-16-2022 Functional Status N/A [facility] Functional observable [facility] Mental Status Date Assessment Result Facility 12-29-2020 Cognitive functi ons [id number] [facility] Clinical Notes 12-26-2020 to 06-08-2024 Telephone Encounter - Kathrine Patel RN - 06/08/2024 3:24 PM EDTTelephone Encounter - Kathrine Patel RN - 06/08/2024 3:24 PM EDTTelephone Encounter - Kathrine Patel RN - 06/08/2024 3:24 PM EDT Note Date & Type Note Facility 06-08-2024 Miscellaneous Notes ----- Message from [employer] sent at 06/08/2024 3:14 PM EDT ----- Contract: [facility] Lidoderm Patch from [facility], not sure if can use Contract: [facility] Patient is not a current patient of this office informed that we cannnot give advice without this. Will call her insurance company. No triage done Reason for Disposition Caller has cancelled the call before the first contact Protocols used: No Contact or Duplicate Contact Call-A-AH documented in this encounter [employer] 06-08-2024 Telephone encounter Note ----- Message from [employer] sent at 06/08/2024 3:14 PM EDT ----- Contract: [facility] Lidoderm Patch from [facility], not sure if can use [facility] 06-08-2024 Telephone encounter Note Contract: [facility] Patient is not a current patient of this office informed that we cannnot give advice without this. Will call her insurance company. No triage done [facility] 06-08-2024 Telephone encounter Note Reason for Disposition Caller has cancelled the call before the first contact Protocols used: No Contact or Duplicate Contact Call-A-AH [facility] 05-15-2024 History of Presen t illness Narrative [...] physician appointments and anticipated to need it mcfp and lifelong Images from the original note [...] States her daughter in law is an SEISMOMETER OPERATOR and helps care for her. When [...] physician appointments and anticipated to need it mcfp and lifelong Psychophysiological insomnia Encounter for medication management Relevant Orders Rapid drug screen, urine Pressure ulcer, buttock Patient is wheelchair bound with limited mobility due to chronic LBP, b/l LE weakness. Has associated fecal and urinary incontinence. Relevant Orders Ambulatory referral to Wound Clinic Rapid drug screen, urine Caroline documented in this encounter [facility] 04-24-2024 Telephone encounter Note Patient would like a refill of her Valium. Was from [employer] but did not transfer to [employer]. [facility] 04-24-2024 Miscellaneous Notes Patient would like a refill of her Valium. Was from [employer] but did not transfer to [employer]. documented in this encounter [facility] 11-26-2022 Hospital Discharg e instructions Patient Education [...] 10/01/2017 Document Revised: 12/14/2019 Document Reviewed: 10/01/2017 [employer] Patient Education 2019 [place]. Follow Up Care 10/14/2022 11:11:52 With:Danya Bingham MD, URL, URO Address: When: Unknown [facility] 09-23-2022 Hospital Discharg e instructions Patient [...] including vitamins, herbs, eye drops, creams, and ydii-dzy-yolprfp medicines. Any problems you or family members [...] provider tells you to take them. Taking oisd-ojp-yyvkuij medicines, vitamins, herbs, and supplements. General instructions [...] Document Reviewed: 10/08/2019 Elsevier Patient Education 2019 [place]. Follow Up Care 08/31/2022 10:49:10 With:Zachery HARKINS, CAROLEE Anderson, URO Address: When: Unknown [facility] 07-16-2022 Hospital Discharg e instructions Patient Education [...] nerve stimulation). For women, using a medical charge entry specialist to prevent urine leaks. This is [...] right after experiencing incontinence. General instructions Take xubs-ktx-osxmrpx and prescription medicines only as told by [...] 09/29/2005 Document Revised: 09/01/2018 Document Reviewed: 12/01/2017 [employer] Patient Education 2020 [place]. Follow Up Care 06/15/2022 11:30:52 With:Zachery HARKINS, CAROLEE Anderson, URO Address: When: Unknown [facility] 02-04-2022 Hospital Discharg e instructions Patient Education [...] nerve stimulation). For women, using a medical charge entry specialist to prevent urine leaks. This is [...] right after experiencing incontinence. General instructions Take dovo-jcr-xxnptio and prescription medicines only as told by [...] 09/29/2005 Document Revised: 09/01/2018 Document Reviewed: 12/01/2017 [employer] Patient Education 2020 [place]. 02/04/2022 16:23:10 Calorie Counting for Weight Loss [...] 08/22/2006 Document Revised: 05/11/2019 Document Reviewed: 07/22/2017 [employer] Patient Education 2020 [place]. Follow Up Care 02/04/2022 13:28:46 With:Danya Bingham MD, URL, URO Address: When: Unknown [facility] 01-11-2022 Evaluation + Plan note Extrac alexander [...] and Plan Diagnosis Bowel and bladder incontinence (JDG01-LP R32, Billing Diagnosis, Medical). Incontinence without sensory awareness (DHR17-NK N39.42, Working, Medical). Diagnosis Bowel and bladder incontinence (YKB78-BW R32, Billing Diagnosis, Medical). Incontinence without sensory awareness (EON53-IM N39.42, Working, Medical). Addendum by Danya Bingham MD on January 11, 2022 10:23 EDT Post procedure diagnosis: Intrinsic sphincter deficiency, acontractile detrusor [facility]05-09-2022 Hospital Discharge instructions Patient Education 01/11/2022 [...] 01/06/2022 11:41:34 With:Danya Bingham Address: [address] [address]- [phone] Business (1) When: Unknown Comments:Call for followup appointment in 2-3 weeks With:Danya Bingham Address:Unknown When: Unknown [facility]05-04-2022 Hospital Discharge instructions Patient Education 01/06/2022 [...] clinics. Check with your local health department. [facility], where you would pay only what you can afford. To find one near you, check this website: [email or web address]/ [facility]. These are part of [...] information Learn more about cervical cancer from: [employer]: www.acog.org/Patients/FAQs/Cervical-Cancer [employer]: www.cancer.org/cancer/cervicalcancer/ U.S. Centers for Disease [...] 09/05/2016 Document Revised: 09/23/2018 Document Reviewed: 04/19/2017 [employer] Patient Education 2020 [place]. Follow Up Care 11/20/2021 10:16:51 With:NIGEL GREEN, NATALIA Santillan, URL Address: [address] [place] [address] [address] When:01/13/2022 [facility] 01-28-2022 NoteSend Summary: Discharge Summary Providers: [...] Care - New Vital Signs: T PRBPSpO2 Value36.7055753/6394% Date/Time10/02 8: 8: 8: 8: 8:00 Range(36.1C [...] placement 09/23 Patient transitioned from post op RN INTAKE to oral pain regimen 09/24 Fitted for [...] or twist. Instead, bend at knees to steel pickler objects (more content not included)...[facility]01-26-2022 NoteThis report has been cancelled.[facility]01-17-2022 NotePROCEDURE DETAILS Postoperative Diagnosis: lumbar stenosis Surgeon: Dr. Lex Frederick Resident/Fellow/Other Director Experimental Medicine: Chery Awan Procedure: posterior L4-L5 decompression posterior [...] Completion Last Updated: 22-Sep-2021 10:54 by Lex Frederick)[facility]01-17-2022 NoteHistory & Physical Reviewed: /Lactating: [...] the note. I personally evaluated the patient [id number] Electronic Signatures: Lex Frederick) (Signed 21-Sep-2021 11:50) Authored: Note Completion Co-Signer: History & Physical Reviewed, ERAS, Consent, Note Completion Jaya Mosquera (Resident)) (Signed 21-Sep-2021 02:51) Authored: History & Physical Reviewed, ERAS, Consent, Note Completion Last Updated: 21-Sep-2021 11:50 by Lex Frederick () References: 1. Data Referenced From MRI Safety Screen v2 19-Sep-2021 19:00[facility]01-15-2022 NoteRehab: Info: Mode of Treatmentoccupational [...] appropriate. 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 Exploration of spinal [...] performed and the images transferred to the Lolly Wolly Doodle system for use in intraoperative image-guided computer-assisted [...] using the torque dri (more content not included)...[facility]01-14-2022 NoteThis report has been cancelled.[facility]01-14-2022 NoteHistory & Physical Reviewed: /Lactating: [...] the note. I personally evaluated the patient [id number] Electronic Signatures: Fidel Maciel (Resident)) (Signed 17-Sep-2021 22:49) Authored: History & Physical Reviewed, ERAS, Consent, Note Completion Lex Frederick) (Signed 19-Sep-2021 10:17) Authored: Note Completion Co-Signer: History & Physical Reviewed, ERAS, Consent, Note Completion Last Updated: 19-Sep-2021 10:17 by Lex Frederick) References: 1. Data Referenced From MRI Safety Screen v2 17-Sep-2021 11:28[facility]01-11-2022 NoteReferral Information: Consult requested by [...] be able to m (more content not included)...[facility]01-11-2022 NoteHistory of Present Illness: /Lactating: [...] the note. I personally evaluated the patient [id number] Electronic Signatures: Fidel Maciel (Resident)) (Signed 15-Sep-2021 [...] Plan Last Updated: 16-Sep-2021 10:20 by Lex Frederick)[facility]04-23-2021 History of Present illness Narrative* I just had the pleasure of seeing Mrs. Jesus villarreal in the Neurosurgery Spine Clinic at the [facility]. She is a very pleasant 46-year-old [...] Ms. JESUS hollis. * Lex Frederick MD, [facility], [facility] * Director - Minimally Invasive Spine Surgery * [facility] * Head Of Drama of Neurological Surgery * [facility] [employer] * [place], [place] * Some of this note was completed using [employer] voice recognition technology and sometimes the software misinterprets words. This may include unintended errors with respect to translation of words, typographical errors or grammar errors which may not have been identified prior to finalization of the chart note. Please take this into account when reading this note. WK-Rcavdwgilytu-Jnlaa Work Phone: [phone]) 296-960204-23-2021 Reason for referral (narrative)* Reason for Referral: Patient s/p posterior bilateral L1 transpedicular decompression, posterior T7-T8, T8-T9, T9-T10, T0-T11, T11-T12, T12-L1 hutton hernandez osteotomies, Posterior T5-L4 instrumentation and fusion on 12/26 [facility] Future Appointments Appointment Date:01/07/2022 11:00:00 AM Scheduled Provider: [facility] Appointment Type:Urology CALL PAT FT Appointment Date:01/11/2022 08:00:00 AM Scheduled Provider: Location:[facility] Appointment Type:Urology FT Appointment Date:01/11/2022 09:00:00 AM Scheduled Provider: Location:[facility] Appointment Type:Urology FT [facility] evaluation + [facility] + Plan note Future Appointments Appointment Date:04/06/2024 12:00:00 PM Scheduled Provider: Location:.MRI Appointment Type:MRI Spine (FT) Appointment Date:04/06/2024 12:00:00 PM Scheduled Provider: Location:[facility] Appointment Type:Surgery FT Future Scheduled Tests Radiology* MRI Spine Cervical w/o Contrast 04/06/24 * MRI Spine Lumbar w/o Contrast 04/06/24 * MRI Spine Thoracic w/o Contrast 04/06/24 [facility] Evaluation note* Neurological: ftmvmge3gjs 5/5 except hg/io4+ble 5/5incision cdiHead/Neck: Ox3, awake, alertBUE 5 prox, HG/IO4+BLE HF/KE/DF/PF/EHL 5 [facility]* Constitutional: in no acute distressSkin: Well perfusedEyes: OU 3RHead/Neck: atraumatic, normocephal icRespiratory/Thorax: airway intact, good chest expansionCardiovascular: normal rate, regular rhythmGastrointestinal: non-tenderNeurological: NAD, A&Rk2Xtngpzg Nerves II-XII: PERRL, EOMI, Face symmetric, Facial SILT, Palate/Tongue midline and symmetric, shoulder shrugs symmetric, hearing intact to finger rubs bilaterallyMotor: RUE D5, B5, T5, HG5, IO5LUE D5, B5, T5, HG5, IO5RLE HF 4+, KE4+, PF4-, DF3LLE HF 4+, KE4+, PF3, DF4-Sensation: SILT throughout all extremitiesPsychological: mood appropriate [facility]* Diagnosis Chronic low back pain, unspecified [...] whether sciatica present documented in this encounter [facility] HealthcareHospital [facility] Narrative No data available for this section [facility] Discharge instructions* Activity:activity as tolerated. May [...] Certification:Home Care Services Needed: yesSkilled Disciplines Ordered: RN/STAGE ELECTRICIAN HELPER, PT, OTFace to Face Encounter Completed: yesDate of Encounter: [id number] Necessity for Homecare (based on clinical findings): [...] washing dishes, & loading the dryer or vice chairman until cleared by MD. * Wound Care:Inspect [...] - Neurosurgeon:Physician/Dept/Service: NeurosurgeonDr Josephuled Date/Time: 08-Jan-2021 10:40Location: [facility] [address], [place] Number: [phone]: 2 week postop/wound check visit; Bring Insurance Card and Photo ID [facility] instructions No data available for this section [facility] InstructionsNot on filedocumented in this encounter [facility] No data available for this section [facility] reason for referral (narrative) , urinary incontinence, neurogenic bladder, open bladder neck, possible SP tube placement Referred by: Zachery HARKINS, Danya Rhodes [facility] reason for referral (narrative)* Consultation (Routine) - Authorized Specialty Diagnoses / Procedures Referred By Pablo saavedra Referred To Contact Wound Care Diagnoses Pressure injury of skin of buttock, unspecified injury stage, unspecified laterality Procedures HI OFFICE/OUTPATIENT NEW HIGH MDM 60 MINUTES Genny Orosco NP [address] [place] [phone] Pérez Pederson MD [address], [place] [address] Referral ID Status Reason Start Date Expiration Date Visits Requested Visits Authorized [id number] Authorized Specialty Services Required 05/15/2024 11/11/2024 1 [...] DATE CREATED AUTHOR AUTHOR'S ORGANIZ ATION 06/20/2019 [facility] DATE CREATED AUTHOR AUTHOR'S ORGANIZ ATION 07/26/2019 [facility] DATE CREATED AUTHOR AUTHOR'S ORGANIZ ATION 12/29/2020 [facility] DATE CREATED AUTHOR AUTHOR'S ORGANIZ ATION 09/16/2021 [facility] DATE CREATED AUTHOR AUTHOR'S ORGANIZ ATION 11/25/2021 [facility] DATE CREATED AUTHOR AUTHOR'S ORGANIZ ATION 12/10/2021 [facility] DATE CREATED AUTHOR AUTHOR'S ORGANIZ ATION 08/06/2022 [facility] DATE CREATED AUTHOR AUTHOR'S ORGANIZ ATION 01/17/2023 [facility] DATE CREATED AUTHOR AUTHOR'S ORGANIZ ATION 06/09/2023 [facility] DATE CREATED AUTHOR AUTHOR'S ORGANIZ ATION 12/29/2023 [facility] [place] [facility] DATE CREATED AUTHOR AUTHOR'S ORGANIZ ATION 05/15/2024 [facility] EPIC <item><item> Privacy Markings [...] Care Team (unrecognized sect ion and content) Dryerman/Woman Relationship Specialty Start Date End Date Shaikh Obrien MD PCP - General Internal Medicine 08/05/23 Dryerman/Woman Relationship Specialty Start Date End Date Shaikh Obrien MD PCP - General Internal Medicine 11/15/22 Dryerman/Woman Relationship Specialty Start Date End Date Unallocated, Lobo Juarez MD [address] [place] [address] PCP - General Family Medicine 06/04/24 Genny Orosco NP [address] [place] [phone] Nurse Practitioner Family Medicine 04/12/24 Dryerman/Woman Relationship Specialty Start Date End Date Kostas Ching MD [address] [place] [phone] PCP - General Family Medicine 04/12/24 Genny Orosco NP [address] [place] [address] Nurse Practitioner Family Medicine 04/12/24 Dryerman/Woman Relationship Specialty Start Date End Date Kostas Ching MD [address] [place] [phone] PCP - General Family Medicine 04/12/24 Genny Orosco NP [address] [place] [phone] Nurse Practitioner Family Medicine 04/12/24 Dryerman/Woman Relationship Specialty Start Date End Date Kostas Ching MD [address] [place] [phone] PCP - General Family Medicine 04/12/24 Genny Orosco NP [address] [place] [phone] Nurse Practitioner Family [facility] 04/12/24 Dryerman/Woman Relationship Specialty Start Date End Date Kostas Ching MD [address] [place] [phone] PCP - General Family Medicine 04/12/24 Genny Orosco NP [address] [place] [phone] Nurse Practitioner Family Medicine 04/12/24 Reason for [...] BE BASED ON THE PRIMARY CLINICAL RECORDS. [facility] [facility]. provides no warranty or guarantee of the accuracy or completeness of information in this document.
[2024-08-26] MEDS: DIAZEPAM 5 MG TABLET PO ×2 (14:30→22:13)
[2024-08-26] MEDS: ENOXAPARIN SODIUM 40 MG/0.4 ML SYRINGE SUBQ (14:30)
[2024-08-26] MEDS: TIZANIDINE HCL 4 MG TABLET PO ×2 (14:30→22:13)
[2024-08-26] MEDS: GABAPENTIN 400 MG CAPSULE 800 MG PO ×2 (14:30→21:11)
[2024-08-26] MEDS: Buprenorphine-Naloxone 8-2 mg film 1 EACH SL ×2 (16:06→21:12)
[2024-08-26] MEDS: NICOTINE 21 MG PATCH.TD24 TD (18:27)
[2024-08-26] MEDS: NYSTATIN 15 GM POWDER 1 APPLIC TOPICAL (21:11)
[2024-08-26 21:23] VITALS: BP 97/60; PULSE 69; TEMP 36.6; O2SAT 93
[2024-08-27 05:56] LABS: Basophils Absolute Auto 0.1 10^3/uL (0.0-0.1); Basophils Percent Auto 0.4 % (0.2-2.0); Eosinophils Absolute Auto 0.2 10^3/uL (0.0-0.7); Eosinophils Percent Auto 1.4 % (0.9-7.0); Hematocrit 36.6 % (36.0-48.0); Hemoglobin 11.8 g/dL (12.0-16.0); Immature Granulocytes Abs Auto 0.05 10^3/uL (0.00-0.03); Immature Granulocytes Pct Auto 0.3 % (0.0-0.5); Lymphocytes Absolute Auto 2.5 10^3/uL (1.2-3.8); Lymphocytes Percent Auto 17.7 % (20.5-60.0); Mean Corpuscular HGB Conc 32.2 g/dL (29.9-35.2); Mean Corpuscular Hemoglobin 27.1 pg (26.7-34.0); Mean Corpuscular Volume 83.9 fL (81.0-99.0); Mean Platelet Volume 10.7 fL (9.5-13.5); Monocytes Absolute Auto 0.8 10^3/uL (0.3-0.8); Monocytes Percent Auto 5.6 % (1.7-12.0); Neutrophils Absolute Auto 10.7 10^3/uL (1.4-6.5); Neutrophils Percent Auto 74.6 % (43.0-75.0); Platelet Count 257 10^3/uL (150-450); Red Blood Count 4.36 10^6/uL (4.20-5.40); Red Cell Distribution Width 16.1 % (11.0-15.0); White Blood Count 14.3 10^3/uL (4.0-11.0)
[2024-08-27 06:00] VITALS: BP 128/77; PULSE 79; TEMP 36.6; O2SAT 90
[2024-08-27] MEDS: Buprenorphine-Naloxone 8-2 mg film 1 EACH SL ×3 (06:08→22:10)
[2024-08-27] MEDS: GABAPENTIN 400 MG CAPSULE 800 MG PO ×3 (06:09→22:10)
[2024-08-27] MEDS: DOCUSATE SODIUM 100 MG CAPSULE PO (06:09)
[2024-08-27] MEDS: TIZANIDINE HCL 4 MG TABLET PO ×2 (06:09→22:10)
[2024-08-27] MEDS: DIAZEPAM 5 MG TABLET PO ×2 (06:09→22:10)
[2024-08-27 06:11] LABS: Alanine Aminotransferase 31 U/L (14-59); Albumin Globulin Ratio 0.4; Alkaline Phosphatase 151 U/L (46-116); Anion Gap 11.6; Aspartate Amino Transferase 31 U/L (15-37); BUN Creatinine Ratio 16.4; Bilirubin Total 0.6 mg/dL (0.2-1.0); Calcium 8.8 mg/dL (8.5-10.1); Carbon Dioxide 29.8 mmol/L (21.0-32.0); Chloride 103 mmol/L (98-107); Estimated GFR (African America >60 (>=60 mL/min/1.73m^2); Estimated GFR (Non-African Ame >60 (>=60 mL/min/1.73m^2); Globulin 4.5 g/dL; Glucose 87 mg/dL (74-106); Potassium 3.4 mmol/L (3.5-5.1); Sodium 141 mmol/L (136-145); Total Protein 6.5 g/dL (6.4-8.2)
[2024-08-27] MEDS: VANCOMYCIN HCL 1,250 MG in 0.9 % SODIUM CHLORIDE 250 ML 250 MG IV (08:04)
[2024-08-27] MEDS: NYSTATIN 15 GM POWDER 1 APPLIC TOPICAL ×2 (08:16→22:09)
[2024-08-27] MEDS: POTASSIUM CHLORIDE 10 MEQ ER TABLET 40 MEQ PO (09:34)
--- NOTE | 2024-08-27 10:00 | CM.NOTE ---
Rounds made with Dr. Obrien, no discharge today. Continue IV antibioitcs and Dr. Eugene to consult for further recommendations.
--- NOTE | 2024-08-27 10:42 | PM.CN ---
Consult Note: [facility] Data of Consult Consult date: 08/27/24 Requesting Physician: Shaikh Micah MD Primary Care Provider: Shaikh Micah MD Consult Narrative Reason for consult: Left leg cellulitis, dry skin b/l feet legs Narrative: Patient is a 49-year-old female with bilateral lower extremity weakness and incontinence which developed approximately 4 years ago after back surgery. She presented to the emergency department yesterday with left lower extremity cellulitis and leukocytosis. She relates to chronic neuropathic pain and relates that pain to her left lower extremity is heightened over the last couple of days. Currently she denies fever, chills, nausea, or vomiting, shortness of breath and chest pain. She cannot recall ever seeing a admitting supervisor and denies ever having an ulceration on her feet but has had sacral ulcers secondary to sitting in her wheelchair. She is mostly concerned about the dry scaly skin on her bilateral lower extremities and relates that she is attempted multiple [id number] moisturizers and not having much success with any of them. She relates that prior to her back surgery she did not have the issues with her skin and also notes that since back surgery her feet seemingly continuously sweat. She relates to bilateral lower extremity weakness but relates that she can take a few steps on her own with the aid of a walker but primarily uses a wheelchair and is sedentary. She admits that she needs to get up and move more. She has not done formal physical therapy in quite some time and states that she has done therapy at home most recently and has been years since she did any inpatient rehab. She relates that she did do inpatient rehab shortly after her surgery with Dr. Acevedo at [facility] PM&R. cc:: CC: Shaikh Micah MD Review of Systems ROS Status of ROS 10 or more systems reviewed and unremarkable except as noted in history and below [facility] Medical History (Updated 08/27/24 @ 11:00 by Joe Eugene DPM) Chronic back pain ?M54.9 - Dorsalgia, unspecified (ICD-10) ?G89.29 - Other chronic pain (ICD-10) Fecal incontinence ?R15.9 - Full incontinence of feces (ICD-10) Urinary incontinence ?R32 - Unspecified urinary incontinence (ICD-10) Wheelchair dependence ?Z99.3 - Dependence on wheelchair (ICD-10) Cord compression myelopathy ?G95.20 - Unspecified cord compression (ICD-10) Opioid use disorder in remission ?F11.91 - Opioid use, unspecified, in remission (ICD-10) Surgical History (Updated 08/26/24 @ 12:29 by Shaikh Micah MD) History of back surgery ?Z98.890 - Other specified postprocedural states (ICD-10) Chronic suprapubic catheter ?Z93.59 - Other cystostomy status (ICD-10) Social History (Updated 08/26/24 @ 12:29 by Shaikh Micah MD) Within the past year, how often did you have a drink containing alcohol: never Score interpretation: A score less than 3 is consistent with normal alcohol consumption. Smoking status: Current every day smoker Non-prescribed substance use: former substance user Highest level of school completed/degree received: GED or equivalent Little interest or pleasure in doing things: nearly every day Feeling down, depressed, or hopeless: nearly every day Meds Home Medications and Allergies Home Medications ?Medication ?Instructions ?Recorded ?Confirmed ?Type buprenorphine 8 mg-naloxone 2 mg 1 film sublingual Q8H 03/01/23 08/26/24 History sublingual film diazepam 5 mg tablet 5 mg PO Q8H PRN anxiety 03/30/23 08/26/24 History gabapentin 800 mg tablet 800 mg PO TID 03/30/23 08/26/24 History tizanidine 4 mg tablet 4 mg PO Q8H PRN muscle spasticity 03/30/23 08/26/24 History nystatin 100,000 unit/gram topical 1 applic topical BID #30 grams 07/15/24 08/26/24 Rx powder Allergies Allergy/AdvReac Type Severity Reaction Status Date / Time codeine Allergy Severe rash Verified 07/15/24 05:16 Penicillins Allergy Severe Anaphylaxis Verified 07/15/24 05:16 quetiapine (From Seroquel) Allergy Severe Seizure Verified 07/15/24 05:16 Exam Narrative Exam Narrative: Skin: 1.5 x 1.5 cm skin tear on posterior lateral left heel. Remainder of skin below the knee bilaterally is intact however is severely dry and flaky on anterior and dorsal surfaces. Interdigital spaces bilateral feet are dry without sign of infection Neuro: Absent protective and vibratory sensation Vascular: Left dorsal foot and ankle are edematous and mildly warmer than the right leg. Dorsalis pedis pulse bilaterally is nonpalpable posterior tibial pulse are faintly palpable MSK: Strength is equal and symmetric bilaterally on plantarflexion 4-/5 and dorsiflexion is 3+/5 Constitutional Vital Signs, click to edit/add: Last Vital Signs Temp 97.8 F 08/27/24 06:00 Pulse 79 08/27/24 06:00 Resp 20 08/27/24 06:00 BP 128/77 08/27/24 06:00 Pulse Ox 90 L 08/27/24 06:00 O2 Del Method Room Air 08/27/24 06:00 Results Labs Labs: Short CBC 08/27/24 Range/Units 05:17 WBC 14.3 H (4.0-11.0) 10^3/uL Hgb 11.8 L (12.0-16.0) g/dL Hct 36.6 (36.0-48.0) % Plt Count 257 (150-450) 10^3/uL BMP 08/27/24 05:17 Sodium 141 Potassium 3.4 L Chloride 103 Carbon Dioxide 29.8 BUN 12.0 Creatinine 0.73 Glucose 87 Calcium 8.8 Liver Function 08/27/24 Range/Units 05:17 Total Bilirubin 0.6 (0.2-1.0) mg/dL AST 31 (15-37) U/L ALT 31 (14-59) U/L Alkaline Phosphatase 151 H (46-116) U/L Albumin 2.0 L (3.4-5.0) g/dL Assessment and Plan Assessment and Plan (1) Cellulitis: Qualifiers: Laterality: unspecified laterality Site of cellulitis: extremity Site of cellulitis of extremity: lower extremity Qualified Code(s): L03.119 - Cellulitis of unspecified part of limb (2) Opioid use disorder in remission: (3) Chronic suprapubic catheter: (4) Leukocytosis: Qualifiers: Leukocytosis type: leukemoid reaction Qualified Code(s): D72.823 - Leukemoid reaction (5) Chronic back pain: Qualifiers: Back pain laterality: bilateral Back pain location: low back pain Sciatica laterality: bilateral sciatica Sciatica presence: with sciatica Qualified Code(s): M54.42 - Lumbago with sciatica, left side; M54.41 - Lumbago with sciatica, right side; G89.29 - Other chronic pain (6) Ulcer of left heel and midfoot, limited to breakdown of skin: Onset Date: ~08/27/24 Assessment and Plan: Apply Xeroform and 4 x 4 gauze with tape. No circumferential dressings Offload with bunny boots (7) Xerosis cutis: Assessment and Plan: Likely secondary to neuropathic dysregulation of sweat glands Apply Lac-Hydrin lotion twice daily (order placed - may continue as outpatient if necessary vs OTC emollient such as eucerin or aquafor) if no progress after 4 weeks then may consider Unna Boots which can be applied in my office as out patient Avoid friction from washcloths, clothing etc. Limit exposure to soaps/detergents/disinfectants Plan Patient seen at bedside and patient education discussed with her particularly regarding her dry skin Small superficial skin tear noted on the posterior heel and I strongly recommended close observation and offloading. Discussed potential need for inpatient rehab and much encouragement provided Recommended medical management for cellulitis -no surgical intervention planned Patient may follow-up in wound center a week from discharge
--- NOTE | 2024-08-27 10:59 | PM.IMPN1 ---
Progress Note: A&P Assessment and Plan (1) Cellulitis: Assessment and Plan: On IV vancomycin. Mild improvement. Add IV levaquin. Podiatry consult pending. US LLE pending. Qualifiers: Laterality: unspecified laterality Site of cellulitis: extremity Site of cellulitis of extremity: lower extremity Qualified Code(s): L03.119 - Cellulitis of unspecified part of limb (2) Opioid use disorder in remission: Assessment and Plan: On Suboxone. (3) Chronic suprapubic catheter: Assessment and Plan: Hx of recurrent UTI. No urinary complaints currently. (4) Leukocytosis: Assessment and Plan: Improving. C/w IV abx. F.u cultures. Qualifiers: Leukocytosis type: leukemoid reaction Qualified Code(s): D72.823 - Leukemoid reaction (5) Chronic back pain: Assessment and Plan: Chronic. Stable. Unchanged. On valium and gabapentin for it. Qualifiers: Back pain laterality: bilateral Back pain location: low back pain Sciatica laterality: bilateral sciatica Sciatica presence: with sciatica Qualified Code(s): M54.42 - Lumbago with sciatica, left side; M54.41 - Lumbago with sciatica, right side; G89.29 - Other chronic pain Internal Medicine - PN: Subj Subjective Interval history: Seen and examined. No overnight events. RLE pain/swelling is sig improved. Still has considerable LLE swelling/erythema/pain, minimal improvement compared to admission day. Exam Constitutional Vital Signs, click to edit/add: Last Vital Signs Temp 97.8 F 08/27/24 06:00 Pulse 79 08/27/24 06:00 Resp 20 08/27/24 06:00 BP 128/77 08/27/24 06:00 Pulse Ox 90 L 08/27/24 06:00 O2 Del Method Room Air 08/27/24 06:00 Documenting provider has reviewed patient's vital signs: yes Common normals: oriented x3 General appearance: cooperative, comfortable and appears older than stated age Respiratory Common normals: normal respiratory effort and clear to auscultation bilaterally Effort & inspection: able to speak in complete sentences Auscultation: clear to auscultation bilaterally Cardio Common normals: regular rate, S1 normal heart sound and S2 normal heart sound Rate: regular rate Heart sounds: S1 normal and S2 normal Extremity Other: LLE - erythema, indurated skin, tenderness - c/w cellulitis. Extending all the way from ankle to upper thigh. Only mild improvement RLE - erythema, indurated skin and tenderness - c/w cellulitis - just below knee. Improved from before. Chronic dry skin, with skin flakes all over b/l LE. Neuro Common normals: oriented x3 Gait (neuro): unable to assess gait (Wheelchair dependent. ) Other: B/L LE weakness - Chronic Psych Common normals: mental status grossly normal, denies hallucinations, denies homicidal ideation and denies suicidal ideation Internal Medicine - PN: Obj Da Labs Labs: Laboratory Results - last 24 hr 08/27/24 05:17 WBC 14.3 H RBC 4.36 Hgb 11.8 L Hct 36.6 MCV 83.9 MCH 27.1 MCHC 32.2 RDW 16.1 H Plt Count 257 MPV 10.7 Neut % (Auto) 74.6 Lymph % (Auto) 17.7 L [place] % (Auto) 5.6 Eos % (Auto) 1.4 Baso % (Auto) 0.4 Neut # (Auto) 10.7 H Lymph # (Auto) 2.5 [place] # (Auto) 0.8 Eos # (Auto) 0.2 Baso # (Auto) 0.1 Abs Immat Gran (auto) 0.05 H Imm/Tot Granulo (auto) 0.3 Sodium 141 Potassium 3.4 L Chloride 103 Carbon Dioxide 29.8 Anion Gap 11.6 BUN 12.0 Creatinine 0.73 Est GFR ( Amer) >60 Est GFR (Non-Af Amer) >60 BUN/Creatinine Ratio 16.4 Glucose 87 Calcium 8.8 Total Bilirubin 0.6 AST 31 ALT 31 Alkaline Phosphatase 151 H Total Protein 6.5 Albumin 2.0 L Globulin 4.5 Albumin/Globulin Ratio 0.4
[2024-08-27 11:01] VITALS: O2SAT 97
--- NOTE | 2024-08-27 11:28 | PC.NURSE ---
Ultrasound notified that pt will now agree to venous doppler
[2024-08-27] MEDS: LEVOFLOXACIN IN DEXTROSE 5 % 750 MG/150 ML PREMIX 100 MG IV (11:48)
[2024-08-27] MEDS: AMMONIUM LACTATE 226 GM BOTTLE 1 APPLIC TOPICAL ×2 (11:48→22:09)
[2024-08-27] MEDS: FLU VAC QS 2024(6MS UP)CEL/PF 60 MCG/0.5 ML SYRINGE IM (12:10)
--- NOTE | 2024-08-27 12:14 | SWNOTE1 ---
SW consulted due to the people close to her make her feel uncomfortable. SW met with pt to discuss dc needs. Pt lives at home with her , son, daughter in law, and grandson. Pt spoke about her medical issues, her family dynamics, and her previous drug addiction. Pt has been sober for 12 years. Pt voiced she has been through a lot medically and she has a lot of pain. Spoke about after a surgery she could not get around like she used to and was limited to a wheelchair. Pt does take some steps at home with walker. She also spoke about being in pain management and also on Suboxone since she has been sober. SW asked pt about feeling uncomfortable around the people she is close to. Pt stated she just feels ashamed of herself. She stated the way her feet look and that she is not able to do things for herself. SW asked pt if she felt safe at home? Pt voiced yes she has great support and her is amazing. She feels safe and taken care of at home. Pt went in to great detail in regards to her family and her ex and her sons father. At this point SW has no concerns for pt's safety at home. SW again asked if she felt safe. Pt again stated yes and that she prays and turns to God if she needs anything. At this time SW has no concerns. SW to follow as needed.
[2024-08-27 13:28] VITALS: BP 130/78; PULSE 90; TEMP 37.1; O2SAT 92
[2024-08-27] MEDS: ONDANSETRON PF 4 MG/2 ML VIAL IV (14:08)
[2024-08-27] MEDS: ENOXAPARIN SODIUM 40 MG/0.4 ML SYRINGE SUBQ (14:08)
--- NOTE | 2024-08-27 14:10 | DIETREC ---
Recommend 237 mL Ensure Original BID, 30 mL PRO-stat BID, 1 packet Davidson BID to provide nutrients and aid wound healing.
[2024-08-27] MEDS: VANCOMYCIN HCL 1,250 MG in 0.9 % SODIUM CHLORIDE 250 ML 167 MG IV (20:58)
[2024-08-27 22:00] VITALS: BP 93/54; PULSE 79; TEMP 36.8; O2SAT 90
[2024-08-28] MEDS: ONDANSETRON PF 4 MG/2 ML VIAL IV (05:02)
[2024-08-28 05:08] VITALS: BP 111/69; PULSE 78; TEMP 36.6; O2SAT 93
[2024-08-28] MEDS: GABAPENTIN 400 MG CAPSULE 800 MG PO (05:40)
[2024-08-28] MEDS: TIZANIDINE HCL 4 MG TABLET PO (05:40)
[2024-08-28] MEDS: DIAZEPAM 5 MG TABLET PO (05:40)
[2024-08-28] MEDS: Buprenorphine-Naloxone 8-2 mg film 1 EACH SL (05:40)
[2024-08-28 05:46] VITALS: O2SAT 93
[2024-08-28 06:00] LABS: Basophils Absolute Auto 0.1 10^3/uL (0.0-0.1); Basophils Percent Auto 0.6 % (0.2-2.0); Eosinophils Absolute Auto 0.3 10^3/uL (0.0-0.7); Eosinophils Percent Auto 1.8 % (0.9-7.0); Hematocrit 35.7 % (36.0-48.0); Hemoglobin 11.5 g/dL (12.0-16.0); Immature Granulocytes Abs Auto 0.13 10^3/uL (0.00-0.03); Immature Granulocytes Pct Auto 0.9 % (0.0-0.5); Lymphocytes Absolute Auto 2.6 10^3/uL (1.2-3.8); Lymphocytes Percent Auto 18.8 % (20.5-60.0); Mean Corpuscular HGB Conc 32.2 g/dL (29.9-35.2); Mean Corpuscular Hemoglobin 27.6 pg (26.7-34.0); Mean Corpuscular Volume 85.6 fL (81.0-99.0); Mean Platelet Volume 10.1 fL (9.5-13.5); Monocytes Absolute Auto 0.8 10^3/uL (0.3-0.8); Monocytes Percent Auto 5.9 % (1.7-12.0); Neutrophils Absolute Auto 9.8 10^3/uL (1.4-6.5); Platelet Count 271 10^3/uL (150-450); Red Blood Count 4.17 10^6/uL (4.20-5.40); Red Cell Distribution Width 16.5 % (11.0-15.0); White Blood Count 13.7 10^3/uL (4.0-11.0)
[2024-08-28 06:20] LABS: Alanine Aminotransferase 26 U/L (14-59); Albumin Globulin Ratio 0.4; Albumin Level 1.8 g/dL (3.4-5.0); Alkaline Phosphatase 148 U/L (46-116); Anion Gap 10.1; Aspartate Amino Transferase 17 U/L (15-37); BUN Creatinine Ratio 12.2; Bilirubin Total 0.4 mg/dL (0.2-1.0); Calcium 8.7 mg/dL (8.5-10.1); Carbon Dioxide 29.8 mmol/L (21.0-32.0); Chloride 107 mmol/L (98-107); Estimated GFR (African America >60 (>=60 mL/min/1.73m^2); Estimated GFR (Non-African Ame >60 (>=60 mL/min/1.73m^2); Globulin 4.5 g/dL; Glucose 102 mg/dL (74-106); Potassium 3.9 mmol/L (3.5-5.1); Sodium 143 mmol/L (136-145); Total Protein 6.3 g/dL (6.4-8.2)
[2024-08-28] MEDS: VANCOMYCIN HCL 1,250 MG in 0.9 % SODIUM CHLORIDE 250 ML 167 MG IV (08:59)
[2024-08-28] MEDS: NYSTATIN 15 GM POWDER 1 APPLIC TOPICAL (09:00)
[2024-08-28] MEDS: AMMONIUM LACTATE 226 GM BOTTLE 1 APPLIC TOPICAL (09:00)
--- NOTE | 2024-08-28 09:46 | CM.NOTE ---
Rounds made with Dr. Ching, pt will discharge to home and f/u with PCP.
--- NOTE | 2024-08-28 10:31 | PM.DS1 ---
DS: Providers Provider Date of admission: 08/26/24 12:30 Primary care physician: Shaikh Micah MD Consults: 08/26/24 Consult to PICC Line RN Routine Consulting Provider: Deanna Rodriguez Reason for consultation: cellulitis Has provider been notified: Yes Consult to [employer] Routine Reason for consult:: Other Other reason:: states the people close to her make her feel uncomfortable 08/26/24 12:24 Consult to Podiatry Routine Consulting Provider: Joe Eugene Reason for consultation: CELLULITIS DS: Diagnosis Discharge Diagnosis (1) Cellulitis: Qualifiers: Laterality: unspecified laterality Site of cellulitis: extremity Site of cellulitis of extremity: lower extremity Qualified Code(s): L03.119 - Cellulitis of unspecified part of limb (2) Ulcer of left heel and midfoot, limited to breakdown of skin: Onset Date: ~08/27/24 (3) Chronic suprapubic catheter: (4) Opioid use disorder in remission: (5) Xerosis cutis: (6) Chronic back pain: Qualifiers: Back pain laterality: bilateral Back pain location: low back pain Sciatica laterality: bilateral sciatica Sciatica presence: with sciatica Qualified Code(s): M54.42 - Lumbago with sciatica, left side; M54.41 - Lumbago with sciatica, right side; G89.29 - Other chronic pain DS: Summary Hospital Course Hospital Course: Reason for admission: See ER note and H&P for details. 49 y/o female to ER with redness and pain to Left lower leg. Redness for past 2 weeks and getting worse. Increased pain and problems ambulating. To ER and WBC elevated at 19. Admitted for treatment. Hospital course: Started IV vanco. Podiatry consulted. Redness minimally changed and added IV levaquin. Patient improved. Normal PO and afebrile. Redness fading and not as painful. WBC improved. Discharged home in stable condition. Will take levaquin x 7 days and oral doxy x 10 day. Resume home medication as directed. Follow up with PCP in 1-2 weeks. Time Spent with Patient Time attestation: Total time spent providing and/or coordinating discharge services: Time spent: greater than 30 minutes Exam Constitutional Vital Signs, click to edit/add: Last Vital Signs Temp 97.8 F 08/28/24 05:08 Pulse 78 08/28/24 05:08 Resp 18 08/28/24 05:08 BP 111/69 08/28/24 05:08 Pulse Ox 93 L 08/28/24 05:46 O2 Del Method Room Air 08/28/24 05:46 Documenting provider has reviewed patient's vital signs: yes Common normals: no apparent distress, oriented x3 and alert HENMT Common normals: normocephalic Eye Common normals: PERRL and EOMs intact bilaterally Respiratory Common normals: normal respiratory effort and clear to auscultation bilaterally Cardio Common normals: regular rate, regular rhythm, no gallops, no murmurs and no rub GI Common normals: Normal to inspection, nondistended, normoactive bowel sounds present and non-tender Extremity Left lower extremity: lower leg (Fading erythema to LLE) DS: Data Data Completed and Pending Labs on day of discharge: Labs from last 24 hours 08/28/24 05:40 WBC 13.7 H RBC 4.17 L Hgb 11.5 L Hct 35.7 L MCV 85.6 MCH 27.6 MCHC 32.2 RDW 16.5 H Plt Count 271 MPV 10.1 Neut % (Auto) 72.0 Lymph % (Auto) 18.8 L [place] % (Auto) 5.9 Eos % (Auto) 1.8 Baso % (Auto) 0.6 Neut # (Auto) 9.8 H Lymph # (Auto) 2.6 [place] # (Auto) 0.8 Eos # (Auto) 0.3 Baso # (Auto) 0.1 Abs Immat Gran (auto) 0.13 H Imm/Tot Granulo (auto) 0.9 H Sodium 143 Potassium 3.9 Chloride 107 Carbon Dioxide 29.8 Anion Gap 10.1 BUN 9.0 Creatinine 0.74 Est GFR ( Amer) >60 Est GFR (Non-Af Amer) >60 BUN/Creatinine Ratio 12.2 Glucose 102 Calcium 8.7 Total Bilirubin 0.4 AST 17 ALT 26 Alkaline Phosphatase 148 H Total Protein 6.3 L Albumin 1.8 L Globulin 4.5 Albumin/Globulin Ratio 0.4 Discharge Plan Discharge Disposition: Home, Self-Care Discharge Medications: New levofloxacin 750 mg tablet 750 mg PO DAILY 7 Days Qty: 7 0RF doxycycline hyclate 100 mg tablet 100 mg PO BID 10 Days Qty: 20 0RF ammonium lactate 12 % lotion 1 applic topical BID Qty: 400 0RF Continued diazepam 5 mg tablet 5 mg PO Q8H PRN (Reason: anxiety) gabapentin 800 mg tablet 800 mg PO TID tizanidine 4 mg tablet 4 mg PO Q8H PRN (Reason: muscle spasticity) buprenorphine-naloxone 8-2 mg film 1 film sublingual Q8H nystatin 100,000 unit/gram powder 1 applic topical BID Qty: 30 0RF Activity: resume usual activities as tolerated Diet: advance to your usual diet Print Language: Persian Patient Instructions: Cellulitis (ED) Forms: Portal Instructions Follow Up Appointments: @ 9am with Dr. Hunter [phone] Please call [facility] to schedule a follow up appt for 7 days following discharge [address] [phone]
[2024-08-28 11:07] VITALS: O2SAT 95
--- OUTSIDE RECORDS SUMMARY | 2024-08-30 07:49 | XMS_ITS | CCD ---
Author Organization [facility] Care Team Providers Care Planning Division Superintendent Name Role Phone Required, No Pcp Unavailable Unavailable Lxe Frederick Unavailable None, No PCP Unavailable Unavailable [...] PÉREZ PATINO Admitting Unavailable JON, DR ABHINAV Lviingston Attending Unavailabl e FALUIGID, MENDOSA H Primary [...] Unavailable VETO ., IVON Attending Unavailable [facility] Primary Care Unavailable PATRICK, DEBORAH Aponte Consulting Unavailable [facility] Primary Care Unavailable REINECK, DR ABHINAV Livingston Admitting Unavailabl e REINECK, DR ABHINAV Livingston Consulting Unavailabl e REINECK, DR ABHINAV Livingston Attending Unavailabl e HAY ., DR LOW Admitting Unavailable [facility] Primary Care Unavailable HAY ., DR LOW Attending Unavailable ZIEBER, DR ENRIQUE Santana Consulting Unavailable HAY ., DR LOW Consulting Unavailable LUE ., DANYA M Admitting Unavailable LUE ., DANYA M Attending [facility]available [facility] Primary Care Unavailable [facility] Primary Care Unavailable LUE ., DANYA M Admitting Unavailable LUE ., DANYA M Consulting Unavailable LUE ., DANYA M Attending Unavailable CANDICE MATTA Consulting Unava ilRACHEL Kirk Consulting Unavailable DIAB ., KYRA Admitting Unavailable [facility] Primary Care Unavailable DIAB ., KYRA Attending Unavailable GRECHNY ., BONITA HULL Consulting Unavailabl e [facility] Care Unavailable LUE ., DANYA M Admitting Unavailable LUE ., DANYA M Consulting Unavailable LUE ., DANYA Aponte Attending Unavailable PAY ., DR RODRIGUEZ Admitting Unavailable PAY ., DR RORDIGUEZ Consulting Unavailable [facility] Primary Care Unavailable PAY ., DR RODRIGUEZ Attending Unavailable [facility] Primary Care Unavailable REINECK, DR ABHINAV Livingston Admitting Unavailabl e REINECK, DR ABHINAV Livingston Consulting Unavailabl e REINECK, DR ABHINAV Livingston Attending Unavailabl e KORIN STANLEY Consulting Unavailable Otoniel, Dr. Lex De Los Santos Attending Kiana Obrien MD, [facility] Care Provider [facility] Care Unavailable Lue, Danya Aponte. Attending Unavailable SHAIKH OBRIEN Attending Unavailable SHAIKH OBRIEN Attending Unavailable GENNY OROSCO Attending Unavailabl jacque Obrien MD, [place] Primary Care Provider [phone] Kwesi STACY, Genny Unavailable Unallocated , [facility] Provider Primary Care Provi marilu Kostas Ching MD Primary Care Provider [phone] Allergies Allergy Classification Reported Allergen(s) Allergy Type Date of Onset Reaction(s) Facility Opioid Agonists (1 source) Codeine Drug Allergy Unknown [facility] Penicillins (antibiotic) (1 source) Penicillin Drug Allergy Unknown [facility] QUEtiapine (1 source) QUEtiapine Drug Allergy Unknown [facility] (20 sources) Codeine; Translations: [Codeine] Drug Allergy 6 Hives, Facial Swelling [facility] Work Phone: (20 sources) Penicillins; Translations: [Penicillins] Allergy to drug (finding) Hives, Unknown -[facility] Work Phone: (17 sources) Promethazine; Translations: [promethazine] Drug Allergy 1 Swelling, Unknown [facility] (1 source) QUEtiapine Drug Allergy Seizures [facility] (2 sources) Codeine Drug Allergy 3 [facility] (3 sources) gabapentin; Translations: [Neurontin] Drug Allergy [facility] (1 source) Levamisole Drug Allergy [facility] (1 source) Morphine Drug Allergy 0 [facility] (2 sources) Penicillins Drug allergy (disorder) 3 [facility] (1 source) QUEtiapine Drug Allergy 3 [facility] (8 sources) Penicillins Drug Allergy 3 Hives, GI intolerance [facility] (8 sources) QUEtiapine Drug Allergy 3 Unknown [facility] (1 source) Penicillin Drug Allergy 6 Facial Swelling [facility] (1 source) Phenergan Plain Propensity to adverse reactions to drug 6 Swelling, Facial Swelling [facility] Medications Current Medications Medication [...] q12hr, # 2 cap(s), Refills(s) 0, [id number], 156, cm, 07/16/22 10:58:00 EST, Height/Length Dosing, [...] day(s), # 2 tab(s), Refills(s) 0, Pharmacy: [address], 156, cm, 01/06/22 10:53:00 EDT, Height/Length [...] Allowed docusate sodium 50 mg / sennosides, mcfp 8.6 mg oral tablet (2 sources) Start: [...] Start: 01-05-2016 take 2 capsules by m [facility] three times daily Neurontin 100 mg Cap 200 mg = 2 cap(s), Oral, TID, Refills(s) 0 Start Date: 01/05/16 Status: Ordered Start: 04-17-2015 take 1 capsule by mo [facility] three times daily gabapentin (NEURONTIN) 300 [...] Start: 04-17-2015 take 1 capsule by mo [facility] once daily hydrochlorothiazide (MICROZIDE) 12.5 mg [...] tab(s), Refills(s) 3, [facility]: [facility] [facility], 156, cm, 02/04/22 15:47:00 EDT, Height/Length Dosing, 78, kg, 02/04/22 15:47:00 EDT, Weight Dosing Start Date: 02/25/22 Status: Ordered nystatin 100 unt/mg topical powder (8 sources) Polyene Antifungal Start: 03-07-2023 Nyamyc 777366 UNIT/GM powder Apply 1 application topically in [...] 30 tab(s), Refills(s) 11, [facility]acy: [facility] #[id number], 156, cm, 07/16/22 10:58:00 EST, Height/Length Dosing, 78, kg, 07/16/22 10:58:00 EST, Weight Dosing Start Date: 10/04/22 Status: Ordered Start: 07-16-2022 take 1 tablet by marlen th once daily oxybutynin 10 mg ER Tab 10 mg = 1 tab(s), Oral, Daily, # 30 tab(s), Refills(s) 11, [facility]: [facility] #[id number], 156, cm, 07/16/22 10:58:00 EST, Height/Length Dosing, 78, kg, 07/16/22 10:58:00 EST, Weight Dosing Start Date: 07/16/22 Status: Ordered Start: 03-10-2022 take 1 tablet by marlen th once daily oxybutynin 10 mg ER Tab 10 mg = 1 tab(s), Oral, Daily, # 30 tab(s), Refills(s) 3, Pharmacy: [address], 156, cm, 02/04/22 15:47:00 EDT, Height/Length [...] 07-Jan-2021 Generic Substitution Allowed polyethylene glycol 3350 43210 mg powder for oral solution (3 sources) [...] Active promethazine hydrochloride 12.5 mg oral tablet (9 sources) Phenothiazine Start: 02-06-2024 take 1 tablet [...] psyllium 3400 mg powder for oral suspension (8 sources) psyllium (Metamu cil) 28 % packet [...] Daily, # 30 cap(s), Refills(s) 0, Pharmacy: [address], 156, cm, 01/07/22 13:43:00 EDT, Height/Length [...] # 2 cap(s), Refills(s) 0, [facility]: [facility] #[id number], 156, cm, 11/26/22 8:15:00 EDT, Height/Length Dosing, [...] Discontinued Generic Substitution Allowed polyethylene glycol 3350 120805 mg / potassium chloride 2970 mg / sodium bicarbonate 6740 mg / sodium chloride 5860 mg / sodium sulfate 94744 mg powder for oral solution (8 sources) [...] Onset: 2 Chronic Chronic ulcer of skin (7 sources) Pressure ulcer of buttock; Translations: [Pressure [...] lumbar vertebra] Episodic Miscellaneous mental health disorders (9 sources) Psychophysiologic insomnia; Translations: [Psychophysiologic insomnia] Onset: 4 02-13-2024 Chronic Mood disorders (17 sources) Depressive disorder; Translations: [Major depressive disorder, single episode, unspecified] Onset: 2 02-21-2014 Chronic Mood disorders (2 sources) Mood disorders; Translations: [Depression, unspecified] Onset: 2 Nausea and vomiting (4 sources) Nausea; Translations: [Nausea] Onset: 3 Episodic Other acquired deformities (19 sources) Kyphosis of thoracic spine; Translations: [Kyphosis (acquired) (postural)] Onset: 3 12-27-2020 Chronic Other acquired deformities (20 sources) Acquired kyphosis; Translations: [Kyphosis (acquired) (postural)] Chronic Other acquired deformities (18 sources) Scoliosis of lumbar spine; Translations: [Scoliosis [...] region] Onset: 2 Chronic Other acquired deformities (7 sources) Kyphoscoliosis deformity of spine; Translations: [Scoliosis, unspecified] Onset: 4 11-01-2023 Chronic Other acquired deformities (7 sources) Kyphosis of thoracolumbar spine; Translations: [Unspecified kyphosis, thoracolumbar region] Onset: 3 11-01-2023 Chronic Other aftercare (2 sources) Other mcc (current) drug therapy; Translations: [Other mcc (current) drug therapy] Onset: 2 Episodic Other [...] Onset: 2 Episodic Other nervous system disorders (19 sources) Spinal cord compression; Translations: [Unspecified disease [...] Onset: 2 Chronic Other nervous system disorders (8 sources) Spinal cord disease; Translations: [Disease of spinal cord, unspecified] Onset: 7 12-08-2016 Chronic Other nervous system disorders (7 sources) Walking disability; Translations: [Difficulty in walking, not elsewhere classified] Onset: 4 11-01-2023 Chronic Other nervous system disorders (11 sources) H/O: Disorder; Translations: [Personal history of other disorders of nervous system and sense organs] Episodic Other nutritional; endocrine; and metabolic disorders (1 source) Obese class I; Translations: [Body mass index (BMI) 32.0-32.9, adult] Onset: 2 Chronic Other nutritional; endocrine; and metabolic disorders (14 sources) Body mass index 30+ - obesity; Translations: [Body mass index (BMI) 32.0-32.9, adult] Onset: 4 02-04-2022 Chronic Other nutritional; endocrine; and metabolic disorders (1 source) Body mass index (BMI) 40.0-44.9, adult; Translations: [Body mass index [BMI] 40.0-44.9, adult] Onset: 2 Chronic Other nutritional; endocrine; and metabolic disorders (1 source) Obesity, unspecified; Translations: [Obesity, unspecified] Onset: 2 Chronic Other skin disorders (1 source) Disorder of the skin and subcutaneous tissue, unspecified; Translations: [DISORDER SKIN AND SUBQ TISSUE UNS] Onset: 3 Episodic Residual codes; unclassified (9 sources) Dependence on wheelchair; Translations: [Dependence on [...] (SUSP) EXPOS COVID-19] Onset: 2 Viral infection (16 sources) Genital herpes simplex; Translations: [Herpesviral infection of urogenital system, unspecified] Onset: 4 01-05-2016 Chronic Past or Other Problems Problem [...] unspecified] Onset: 10-02-2021 Episodic Other acquired deformities (17 sources) Acquired deformity of spine; Translations: [Other acquired deformity of back or spine] Onset: 06-13-2023 11-01-2023 Episodic Other circulatory disease (1 source) Hypotension, unspecified; Translations: [Hypotension, unspecified] Onset: 10-02-2021 Episodic Other connective tissue disease (16 sources) Fibromyositis; Translations: [Fibromyalgia] Onset: 11-01-2023 01-05-2016 Episodic Other connective tissue disease (1 source) Fibromyalgia; Translations: [FIBROMYALGIA] Onset: 09-10-2022 Episodic Other connective tissue disease (7 sources) Spasm of cervical paraspinous muscle; Translations: [Other muscle spasm] Onset: 06-20-2019 11-01-2023 Episodic Other diseases of bladder and urethra (14 sources) Urethral intrinsic sphincter deficiency; 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)] Onset: 11-01-2023 07-16-2022 Episodic Other fractures (18 sources) Compression fracture of lumbar spine; Translations: [Late effect of fracture of spine and trunk without mention of spinal cord lesion] Onset: 06-13-2023 11-01-2023 Episodic Other gastrointestinal disorders (1 source) Other constipation; Translations: [Other constipation] Onset: 10-02-2021 Episodic Other injuries and conditions due to external causes (1 source) History of falling; Translations: [History of falling] Onset: 10-02-2021 Episodic Other nervous system disorders (18 sources) Abnormal gait; Translations: [Abnormality of gait] Onset: 06-13-2023 11-01-2023 Episodic Other nervous system disorders (1 source) Atypical facial pain; Translations: [ATYPICAL FACIAL PAIN] Onset: 06-01-2022 Episodic Other screening for suspected conditions (not mental disorders or infectious disease) (15 sources) Patient encounter status; Translations: [Special screening for malignant neoplasms of colon] Onset: 05-15-2024 05-15-2024 Episodic Other upper respiratory infections (7 sources) Acute upper respiratory infection; Translations: [Acute upper respiratory infection, unspecified] Onset: 02-13-2024 02-13-2024 Episodic Residual codes; unclassified (1 source) Acquired absence of other organs; Translations: [Acquired absence of other organs] Onset: 10-02-2021 Episodic Residual codes; unclassified (7 sources) Harmful pattern of use of nicotine; Translations: [Tobacco use] Onset: 06-20-2019 11-01-2023 Episodic Residual codes; unclassified (7 sources) Edema of lower extremity; Translations: [Localized [...] sources) compression fractures 10-27-2011 Urinary tract infections (9 sources) Urinary tract infection, site not specified; [...] consultation, please call . ======= Performed at: [facility] [address] [place] [phone] Cupola Charger: Neli [facility], Phone: [phone] Specimen Comment: ToxAss[employer], [employer] FLEX or MAT drug testin Specimen Comment: -Technical component - Data analysis performed at Specimen Comment: [facility], [address] [place] [address] Specimen Comment: [id number]. [phone] Cupola Charger James Barrera MD. [facility] [...] [facility] Outside Recordson 12-28-2023 Outside Records [id number] Normal [facility] Physician Orderon 12-14-2023 Physician Order [id number]#1.00TIFF [facility] ED Note-Physicianon 03-14-20 ED Note-Physician [id number]#1.00CD:12 7 Normal [facility] ED Note-Physicianon 01-23-20 ED Note-Physician [id number]#1.00CD:12 7 Normal [facility] ED Note-Physician [id number]#1.00CD:12 7 [facility] Lab Reportson 01-22-2023 Lab Reports [id number]#1.00CD:12 7 [facility] Patient Correspondenceon Patient Correspondence [id number]#1.00CD:12 7 [facility] CULTURE URINEon 01-16-2023 CULTURE URINE Isolate [...] R F Nitrofurantoin <=16 S F Normal [facility] Comment on above: Performed By: #### U MICRO, ERUR #### [facility] [address] [place] [address] Dr. Alfredo Lizama CBC AUTO DIFFon 01-13-2023 BASO # 0.1 103/ul Normal 0.0-0.1 [facility] Comment on above: Performed By: #### U MICRO, ERUR #### [facility] [address] [place] [address] Dr. Alfredo Lizama Basophils/100 WBC (Bld) 0.7 % Normal 0.2-2.0 [facility] Comment on above: Performed By: #### U MICRO, ERUR #### [facility] [address] [place] [address] Dr. Alfredo Lizama EO # 0.3 103/ul Normal 0.0-0.7 [facility] Comment on above: Performed By: #### U MICRO, ERUR #### [facility] [address] [place] [address] Dr. Alfredo Lizama Eosinophils/100 WBC (Bld) 3.2 % Normal 0.9-7.0 [facility] Comment on above: Performed By: #### U MICRO, ERUR #### [facility] [address] [place] [address] Dr. Alfredo Lizama Erythrocyte distribution width (RBC) [Ratio] 13.0 % Normal 11.0-15.0 [facility] Comment on above: Performed By: #### U MICRO, ERUR #### [facility] [address] [place] [address] Dr. Alfredo Lizama Hematocrit (Bld) [Volume fraction] 43.2 % Normal 36.0-48.0 [facility] Comment on above: Performed By: #### U MICRO, ERUR #### [facility] [address] [place] [address] Dr. Alfredo Lizama Hemoglobin (Bld) [Mass/Vol] 14.1 g/dL Normal 12.0-16.0 [facility] Comment on above: Performed By: #### U MICRO, ERUR #### [facility] [address] [place] [address] Dr. Alfredo Lizama IG # 0.02 10e3/ul Normal 0.00-0.03 [facility] Comment on above: Performed By: #### U MICRO, ERUR #### [facility] [address] [place] [address] Dr. Alfredo Lizama IG % 0.2 % Normal 0.0-0.5 [facility] Comment on above: Performed By: #### U MICRO, ERUR #### [facility] [address] [address] [address] Alfredo Lizama LYMPH # 3.0 103/ul Normal 1.2-3.8 [facility] Comment on above: Performed By: #### U MICRO, ERUR #### [facility] [address] [place] [address] Dr. Alfredo Lizama Lymphocytes/100 WBC (Bld) 35.6 % Normal 20.5-60.0 [facility] Comment on above: Performed By: #### U MICRO, ERUR #### [facility] [address] [place] [address] Dr. Alfredo Lizama MANUAL DIFF REQ NO Normal [facility] Comment on above: Performed By: #### U MICRO, ERUR #### [facility] [address] [place] [address] Dr. Alfredo Lizama MCH (RBC) [Entitic mass] 29.4 pg Normal 26.7-34.0 [facility] Comment on above: Performed By: #### U MICRO, ERUR #### [facility] [address] [place] [address] Dr. Alfredo Lizama MCHC (RBC) [Mass/Vol] 32.6 g/dL Normal 29.9-35.2 [facility] Comment on above: Performed By: #### U MICRO, ERUR #### [facility] [address] [place] [address] Dr. Alfredo Lizama MCV (RBC) [Entitic vol] 90.0 fL Normal 81.0-99.0 [facility] Comment on above: Performed By: #### U MICRO, ERUR #### [facility] [address] [place] [address] Dr. Alfredo Lizama MONO # 0.4 103/ul Normal 0.3-0.8 [facility] Comment on above: Performed By: #### U MICRO, ERUR #### [facility] [address] [place] [address] Dr. Alfredo Lizama Monocytes/100 WBC (Bld) 4.8 % Normal 1.7-12.0 [facility] Comment on above: Performed By: #### U MICRO, ERUR #### [facility] [address] [address] [address] Alfredo Lizama NEUT # 4.7 103/ul Normal 1.4-6.5 [facility] Comment on above: Performed By: #### U MICRO, ERUR #### [facility] [address] [address] [address] Alfredo Lizama Neutrophils/100 WBC (Bld) 55.5 % Normal 43.0-75.0 [facility] Comment on above: Performed By: #### U MICRO, ERUR #### [facility] [address] [address] [address] Alfredo Lizama Platelet mean volume (Bld) [Entitic vol] 9.5 fL Normal 9.5-13.5 [facility] Comment on above: Performed By: #### U MICRO, ERUR #### [facility] [address] [address] [address] Alfredo Lizama PLT 267 103/ul Normal 150-450 [facility] Comment on above: Performed By: #### U MICRO, ERUR #### [facility] [address] [place] [address] Dr. Alfredo Lizama RBC 4.80 106/ul Normal 4.20-5.40 [facility] Comment on above: Performed By: #### U MICRO, ERUR #### [facility] [address] [address] [address] Alfredo Lizama WBC 8.5 103/ul Normal 4.0-11.0 [facility] Comment on above: Performed By: #### U MICRO, ERUR #### [facility] [address] [address] [address] Alfredo Lizama ER URINE PROFILEon 3 Bilirubin Ql (U) Negative Normal NEGATIVE [facility] Comment on above: Performed By: #### E RUR UMICRO #### [facility] [address] [place] [address] Dr. Alfredo Lizama Clarity (U) CLOUDY Abnormal CLEAR [facility] Comment on above: Performed By: #### Jacque ESTRADA UMICRO #### [facility] [address] [place] [address] Dr. Alfredo Lizama Color (U) YELLOW Normal YELLOW [facility] Comment on above: Performed By: #### Jacque ESTRADA UMICRO #### [facility] [address] [place] [address] Dr. Alfredo Lizama ERUAHD A micrscopic examina tion will be performed if indicated. Normal [facility] Comment on above: Performed By: #### Jacque ESTRADA UMICRO #### [facility] [address] [place] [address] Dr. Alfredo Lizama Glucose Ql (U) Negative Normal NEGATIVE [facility] Comment on above: Performed By: #### Jacque ESTRADA UMICRO #### [facility] [address] [place] [address] Dr. Alfredo Lizama Hemoglobin Ql (U) MODERATE Abnormal NEGATIVE [facility] Comment on above: Performed By: #### Jacque ESTRADA UMICRO #### [facility] [address] [place] [address] Dr. Alfredo Lizama Ketones Ql (U) TRACE Abnormal NEGATIVE [facility] Comment on above: Performed By: #### Jacque ESTRADA UMICRO #### [facility] [address] [place] [address] Dr. Alfredo Lizama LEUKOCYTES SMALL Abnormal NEGATIVE [facility] Comment on above: Performed By: #### Jacque ESTRADA UMICRO #### [facility] [address] [place] [address] Dr. Alfredo Lizama Nitrite Ql (U) Negative Normal NEGATIVE [facility] Comment on above: Performed By: #### Jacque ESTRADA UMICRO #### [facility] [address] [place] [address] Dr. Alfredo Lizama pH (U) 8.0 [pH] Normal 5-9 [facility] Comment on above: Performed By: #### Jacque ESTRADA UMICRO #### [facility] [address] [place] [address] Dr. Alfredo Lizama Protein (U) [Mass/Vol] 100 mg/dL Abnormal NEGAT LATISAH/ TRACE [facility] Comment on above: Performed By: #### CHINMAY CHAVESRO #### [facility] [address] [place] [address] Dr. Alfredo Lizama SPEC GRAVITY 1.015 Normal 1.005-<=1. 025 [facility] Comment on above: Performed By: #### Jacque ESTRADA UMICRO #### [facility] [address] [place] [address] Dr. Alfredo Lizama UR MICRO IND INDICATED Normal [facility] Comment on above: Performed By: #### CHINMAY CHAVESRO #### [facility] [address] [place] [address] Dr. Alrfedo Lizama Urobilinogen Qn (U) 1.0 {Tesha'U}/dL Normal 0.2 - 1. 0 [facility] Comment on above: Performed By: #### CHINMAY CHAVESRO #### [facility] [address] [place] [address] Dr. Alfredo Lizama PROF CHEM 8 (BAS METB)on Anion gap [Moles/Vol] 8.4 mmol/L Normal [facility] Comment on above: Performed By: #### U MICRO, ERUR #### [facility] [address] [place] [address] Dr. Alfredo Lizama Calcium [Mass/Vol] 8.7 mg/dL Normal 8.5-10.1 [facility] Comment on above: Performed By: #### U MICRO, ERUR #### [facility] [address] [place] [address] Dr. Alfredo Lizama Chloride [Moles/Vol] 107 mmol/L Normal 98-107 [facility] Comment on above: Performed By: #### U MICRO, ERUR #### [facility] [address] [place] [address] Dr. Alfredo Lizama CO2 [Moles/Vol] 28.3 mmol/L Normal 21.0-32.0 [facility] Comment on above: Performed By: #### U MICRO, ERUR #### [facility] [address] [address] [address] Alfredo Lizama Creatinine [Mass/Vol] 0.70 mg/dL Normal 0.55-1.02 [facility] Comment on above: Performed By: #### U MICRO, ERUR #### [facility] [address] [address] [address] Alfredo Lizama EGFR-AF MALIAN >60 Normal >=60 [facility] Comment on above: Performed By: #### U MICRO, ERUR #### [facility] [address] [address] [address] Alfredo Lizama EGFR-NON AF MALIAN >60 Normal >=60 [facility] Comment on above: Performed By: #### U MICRO, ERUR #### [facility] [address] [address] [address] Alfredo Lizama Glucose [Mass/Vol] 97 mg/dL Normal 74-106 [facility] Comment on above: Performed By: #### U MICRO, ERUR #### [facility] [address] [address] [address] Alfredo Lizama Potassium [Moles/Vol] 3.7 mmol/L Normal 3.5-5.1 [facility] Comment on above: Performed By: #### U MICRO, ERUR #### [facility] [address] [address] [address] Alfredo Lizama Sodium [Moles/Vol] 140 mmol/L Normal 136-145 [facility] Comment on above: Performed By: #### U MICRO, ERUR #### [facility] [address] [address] [address] Alfredo Lizama Urea nitrogen [Mass/Vol] 7.0 mg/dL Normal 7.0-18.0 [facility] Comment on above: Performed By: #### U MICRO, ERUR #### [facility] [address] [address] [address] Alfredo Lizama Urea nitrogen/Creatinine [Mass ratio] 10.0 mg/mg Normal [facility] Comment on above: Performed By: #### U MICRO, ERUR #### [facility] [address] [address] [address] Alfredo Lizama URINE MICROSCOPIC ONLYon AMORPHOUS CRYSTALS FEW Normal [facility] Comment on above: Performed By: #### Jacque ESTRADA UMICRO #### [facility] [address] [place] [address] Dr. Alfredo Lizama BACTERIA LARGE Abnormal NONE SEEN [facility] Comment on above: Performed By: #### Jacque ESTRADA UMICRO #### [facility] [address] [place] [address] Dr. Alfredo Lizama Bacteria identified Cx Nom (U) INDICATED Normal [facility] Comment on above: Performed By: #### Jacque ESTRADA UMICRO #### [facility] [address] [place] [address] Dr. Alfredo Lizama CAST NONE SEEN Normal NONE SEEN [facility] Comment on above: Performed By: #### Jacque ESTRADA UMICRO #### [facility] [address] [place] [address] Dr. Alfredo Lizama Crystals LM Nom (Urine sed) SEEN Abnormal NONE SEEN [facility] Comment on above: Performed By: #### Jacque ESTRADA UMICRO #### [facility] [address] [place] [address] Dr. Alfredo Lizama Epithelial cells LM Ql (Urine sed) RARE Normal NONE SEEN /RARE [facility] Comment on above: Performed By: #### Jacque ESTRADA UMICRO #### [facility] [address] [place] [address] Dr. Alfredo Lizama MUCOUS NONE SEEN Normal NONE SEEN [facility] Comment on above: Performed By: #### Jacque ESTRADA UMICRO #### [facility] [address] [place] [address] Dr. Alfredo Lizama RBC 2-5 Abnormal 0-2 [facility] Comment on above: Performed By: #### Jacque ESTRADA UMICRO #### [facility] [address] [place] [address] Dr. Alfredo Lizama TRIPLE PHOS CRYSTALS FEW Normal [facility] Comment on above: Performed By: #### LINDA CHAVES #### [facility] [address] [address] [address] Alfredo Lizama WBC 75-100 Abnormal NONE SEEN [facility] Comment on above: Performed By: #### LINDA CHAVES #### [facility] [address] [place], [place] [address] Dr. Alfredo Lizama Patient Letter FT[place] 2022 [place] [facility] [place]ed [place]. Shelly ble to display) January 10, 2023 MORALES LEE [address] [place] [address] MORALES LEE 1975 Dear Morales, I am [...] Danya Bingham MD [facility] [address] [facility], [place] [address] [facility] CULTURE URINEon 12-25-2022 CULTURE URINE Isolate [...] Trimethoprim/Sulfamethoxa zole <=20 S F Normal [facility] Comment on above: Performed By: #### U MICRO, ERUR #### [facility] [address] [place] [address] Dr. Alfredo Lizama AMYLASEon 11-09-2022 Amylase [Catalytic activity/Vol] 14 U/L Critically low 25-115 [facility] Comment on above: Performed By: #### U MICRO, ERUR #### [facility] [address] [place] [address] Dr. Alfredo Lizama CBC AUTO DIFFon 11-09-2022 BASO # 0.1 103/ul Normal 0.0-0.1 [facility] Comment on above: Performed By: #### U MICRO, ERUR #### [facility] [address] [place] [address] Dr. Alfredo Lizama Basophils/100 WBC (Bld) 0.8 % Normal 0.2-2.0 [facility] Comment on above: Performed By: #### U MICRO, ERUR #### [facility] [address] [place] [address] Dr. Alfredo Lizama EO # 0.2 103/ul Normal 0.0-0.7 [facility] Comment on above: Performed By: #### U MICRO, ERUR #### [facility] [address] [place] [address] Dr. Alfredo Lizama Eosinophils/100 WBC (Bld) 2.5 % Normal 0.9-7.0 [facility] Comment on above: Performed By: #### U MICRO, ERUR #### [facility] [address] [place] [address] Dr. Alfredo Lizama Erythrocyte distribution width (RBC) [Ratio] 12.7 % Normal 11.0-15.0 [facility] Comment on above: Performed By: #### U MICRO, ERUR #### [facility] [address] [place] [address] Dr. Alfredo Lizama Hematocrit (Bld) [Volume fraction] 46.3 % Normal 36.0-48.0 [facility] Comment on above: Performed By: #### U MICRO, ERUR #### [facility] [address] [place] [address] Dr. Alfredo Lizama Hemoglobin (Bld) [Mass/Vol] 15.9 g/dL Normal 12.0-16.0 [facility] Comment on above: Performed By: #### U MICRO, ERUR #### [facility] [address] [place] [address] Dr. Alfredo Lizama IG # 0.02 10e3/ul Normal 0.00-0.03 [facility] Comment on above: Performed By: #### U MICRO, ERUR #### [facility] [address] [place] [address] Dr. Alfredo Lizama IG % 0.2 % Normal 0.0-0.5 [facility] Comment on above: Performed By: #### U MICRO, ERUR #### [facility] [address] [place] [address] Dr. Alfredo Lizama LYMPH # 2.6 103/ul Normal 1.2-3.8 [facility] Comment on above: Performed By: #### U MICRO, ERUR #### [facility] [address] [place] [address] Dr. Alfredo Lizama Lymphocytes/100 WBC (Bld) 31.3 % Normal 20.5-60.0 [facility] Comment on above: Performed By: #### U MICRO, ERUR #### [facility] [address] [place] [address] Dr. Alfredo Lizama MANUAL DIFF REQ NO Normal [facility] Comment on above: Performed By: #### U MICRO, ERUR #### [facility] [address] [place] [address] Dr. Alfredo Lizama MCH (RBC) [Entitic mass] 29.3 pg Normal 26.7-34.0 [facility] Comment on above: Performed By: #### U MICRO, ERUR #### [facility] [address] [place] [address] Dr. Alfredo Lizama MCHC (RBC) [Mass/Vol] 34.3 g/dL Normal 29.9-35.2 [facility] Comment on above: Performed By: #### U MICRO, ERUR #### [facility] [address] [address] [address] Alfredo Lizama MCV (RBC) [Entitic vol] 85.4 fL Normal 81.0-99.0 [facility] Comment on above: Performed By: #### U MICRO, ERUR #### [facility] [address] [place] [address] Dr. Alfredo Lizama MONO # 0.6 103/ul Normal 0.3-0.8 [facility] Comment on above: Performed By: #### U MICRO, ERUR #### [facility] [address] [place] [address] Dr. Alfredo Lizama Monocytes/100 WBC (Bld) 6.6 % Normal 1.7-12.0 [facility] Comment on above: Performed By: #### U MICRO, ERUR #### [facility] [address] [place] [address] Dr. Alfredo Lizama NEUT # 4.9 103/ul Normal 1.4-6.5 [facility] Comment on above: Performed By: #### U MICRO, ERUR #### [facility] [address] [place] [address] Dr. Alrfedo Lizama Neutrophils/100 WBC (Bld) 58.6 % Normal 43.0-75.0 [facility] Comment on above: Performed By: #### U MICRO, ERUR #### [facility] [address] [place] [address] Dr. Alfredo Lizama Platelet mean volume (Bld) [Entitic vol] 9.5 fL Normal 9.5-13.5 [facility] Comment on above: Performed By: #### U MICRO, ERUR #### [facility] [address] [place] [address] Dr. Alfredo Lizama PLT 273 103/ul Normal 150-450 [facility] Comment on above: Performed By: #### U MICRO, ERUR #### [facility] [address] [place] [address] Dr. Alfredo Lizama RBC 5.42 106/ul Critically high 4.20-5.40 [facility] Comment on above: Performed By: #### U MICRO, ERUR #### [facility] [address] [place] [address] Dr. Alfredo Lizama WBC 8.4 103/ul Normal 4.0-11.0 [facility] Comment on above: Performed By: #### U MICRO, ERUR #### [facility] [address] [place] [address] Dr. Alfredo Lizama CULTURE URINEon 11-09-2022 CULTURE URINE Culture Observations : MODERATE GROWTH OF MIXED GENITAL ROSANNA. NO POTENTIAL PATHOGENS SEEN. Normal [facility] Comment on above: Performed By: #### U MICRO, ERUR #### [facility] [address] [place] [address] Dr. Alfredo Lizama ER URINE PROFILEon 3 Bilirubin Ql (U) Negative Normal NEGATIVE [facility] Comment on above: Performed By: #### U MICRO, ERUR #### [facility] [address] [place] [address] Dr. Alfredo Lizama Clarity (U) CLEAR Normal CLEAR [facility] Comment on above: Performed By: #### U MICRO, ERUR #### [facility] [address] [place] [address] Dr. Alfredo Lizama Color (U) LT. YELLOW Normal YELLOW [facility] Comment on above: Performed By: #### U MICRO, ERUR #### [facility] [address] [place] [address] Dr. Alfredo Lizama ERUAHD A micrscopic examina tion will be performed if indicated. Normal [facility] Comment on above: Performed By: #### U MICRO, ERUR #### [facility] [address] [place] [address] Dr. Alfredo Lizama Glucose Ql (U) Negative Normal NEGATIVE [facility] Comment on above: Performed By: #### U MICRO, ERUR #### [facility] [address] [place] [address] Dr. Alfredo Lizama Hemoglobin Ql (U) MODERATE Abnormal NEGATIVE [facility] Comment on above: Performed By: #### U MICRO, ERUR #### [facility] [address] [place] [address] Dr. Alfredo Lizama Ketones Ql (U) Negative Normal NEGATIVE [facility] Comment on above: Performed By: #### U MICRO, ERUR #### [facility] [address] [place] [address] Dr. Alfredo Lizama LEUKOCYTES LARGE Abnormal NEGATIVE [facility] Comment on above: Performed By: #### U MICRO, ERUR #### [facility] [address] [address] [address] Alfredo Lizama Nitrite Ql (U) Negative Normal NEGATIVE [facility] Comment on above: Performed By: #### U MICRO, ERUR #### [facility] [address] [place] [address] Dr. Alfredo Lizama pH (U) 7.0 [pH] Normal 5-9 [facility] Comment on above: Performed By: #### U MICRO, ERUR #### [facility] [address] [place] [address] Dr. Alfredo Lizama SPEC GRAVITY 1.015 Normal 1.005-<=1. 025 [facility] Comment on above: Performed By: #### U MICRO, ERUR #### [facility] [address] [place] [address] Dr. Alfredo Lizama UA PROTEIN Negative Normal NEGATIVE/ TRACE [facility] Comment on above: Performed By: #### U MICRO, ERUR #### [facility] [address] [place] [address] Dr. Alfredo Lizama UR MICRO IND INDICATED Normal [facility] Comment on above: Performed By: #### U MICRO, ERUR #### [facility] [address] [place] [address] Dr. Alfredo Lizama Urobilinogen Qn (U) 0.2 {Tesha'U}/dL Normal 0.2 - 1. 0 [facility] Comment on above: Performed By: #### U MICRO, ERUR #### [facility] [address] [place] [address] Dr. Alfredo Lizama LIPASEon 11-09-2022 Lipase [Catalytic activity/Vol] 34.0 U/L Critically low 73.0-393.0 [facility] Comment on above: Performed By: #### U MICRO, ERUR #### [facility] [address] [place] [address] Dr. Alfredo Lizama PROF 14(COMP METB)on 023 Albumin [Mass/Vol] 4.0 g/dL Normal 3.4-5.0 [facility] Comment on above: Performed By: #### U MICRO, ERUR #### [facility] [address] [place] [address] Dr. Alfredo Lizama Albumin/Globulin [Mass ratio] 1.0 {ratio} Normal [facility] Comment on above: Performed By: #### U MICRO, ERUR #### [facility] [address] [place] [address] Dr. Alfredo Lizama ALP [Catalytic activity/Vol] 206 U/L Critically high 46-116 [facility] Comment on above: Performed By: #### U MICRO, ERUR #### [facility] [address] [place] [address] Dr. Alfredo Lizama ALT [Catalytic activity/Vol] 53 U/L Normal 14-59 [facility] Comment on above: Performed By: #### U MICRO, ERUR #### [facility] [address] [place] [address] Dr. Alfredo Lizama Anion gap [Moles/Vol] 14.5 mmol/L Normal [facility] Comment on above: Performed By: #### U MICRO, ERUR #### [facility] [address] [place] [address] Dr. Alfredo Lizama AST [Catalytic activity/Vol] 55 U/L Critically high 15-37 [facility] Comment on above: Performed By: #### U MICRO, ERUR #### [facility] [address] [place] [address] Dr. Alfredo Lizama Bilirubin [Mass/Vol] 0.7 mg/dL Normal 0.2-1.0 [facility] Comment on above: Performed By: #### U MICRO, ERUR #### [facility] [address] [address] [address] Alfredo Lizama Calcium [Mass/Vol] 9.0 mg/dL Normal 8.5-10.1 [facility] Comment on above: Performed By: #### U MICRO, ERUR #### [facility] [address] [address] [address] Alfredo Lizama Chloride [Moles/Vol] 100 mmol/L Normal 98-107 [facility] Comment on above: Performed By: #### U MICRO, ERUR #### [facility] [address] [place] [address] Dr. Alfredo Lizama CO2 [Moles/Vol] 28.3 mmol/L Normal 21.0-32.0 [facility] Comment on above: Performed By: #### U MICRO, ERUR #### [facility] [address] [place] [address] Dr. Alfredo Lizama Creatinine [Mass/Vol] 0.65 mg/dL Normal 0.55-1.02 [facility] Comment on above: Performed By: #### U MICRO, ERUR #### [facility] [address] [place] [address] Dr. Alfredo Lizama EGFR-AF MALIAN >60 Normal >=60 [facility] Comment on above: Performed By: #### U MICRO, ERUR #### [facility] [address] [place] [address] Dr. Alfredo Lizama EGFR-NON AF MALIAN >60 Normal >=60 [facility] Comment on above: Performed By: #### U MICRO, ERUR #### [facility] [address] [address] [address] Alfredo Lizama Globulin (S) [Mass/Vol] 3.9 g/dL Normal [facility] Comment on above: Performed By: #### U MICRO, ERUR #### [facility] [address] [place] [address] Dr. Alfredo Lizama Glucose [Mass/Vol] 134 mg/dL Critically high 74-106 [facility] Comment on above: Performed By: #### U MICRO, ERUR #### [facility] [address] [place] [address] Dr. Alfredo Lizama Potassium [Moles/Vol] 3.8 mmol/L Normal 3.5-5.1 [facility] Comment on above: Performed By: #### U MICRO, ERUR #### [facility] [address] [place] [address] Dr. Alfredo Lizama Protein [Mass/Vol] 7.9 g/dL Normal 6.4-8.2 [facility] Comment on above: Performed By: #### U MICRO, ERUR #### [facility] [address] [place] [address] Dr. Alfredo Lizama Sodium [Moles/Vol] 139 mmol/L Normal 136-145 [facility] Comment on above: Performed By: #### U MICRO, ERUR #### [facility] [address] [place] [address] Dr. Alfredo Lizama Urea nitrogen [Mass/Vol] 7.0 mg/dL Normal 7.0-18.0 [facility] Comment on above: Performed By: #### U MICRO, ERUR #### [facility] [address] [place] [address] Dr. Alfredo Lizama Urea nitrogen/Creatinine [Mass ratio] 10.7 mg/mg Normal [facility] Comment on above: Performed By: #### U MICRO, ERUR #### [facility] [address] [place] [address] Dr. Alfredo Lizama URINE MICROSCOPIC ONLYon BACTERIA TRACE Abnormal NONE SEEN [facility] Comment on above: Performed By: #### U MICRO, ERUR #### [facility] [address] [place] [address] Dr. Alfredo Lizama Bacteria identified Cx Nom (U) INDICATED Normal [facility] Comment on above: Performed By: #### U MICRO, ERUR #### [facility] [address] [place] [address] Dr. Alfredo Lizama CAST NONE SEEN Normal NONE SEEN [facility] Comment on above: Performed By: #### U MICRO, ERUR #### [facility] [address] [place] [address] Dr. Alfredo Lizama Crystals LM Nom (Urine sed) NONE SEEN Normal NONE SEEN [facility] Comment on above: Performed By: #### U MICRO, ERUR #### [facility] [address] [place] [address] Dr. Alfredo Lizama Epithelial cells LM Ql (Urine sed) FEW Abnormal NONE SEEN /RARE [facility] Comment on above: Performed By: #### U MICRO, ERUR #### [facility] [address] [place] [address] Dr. Alfredo Lizama MUCOUS NONE SEEN Normal NONE SEEN [facility] Comment on above: Performed By: #### U MICRO, ERUR #### [facility] [address] [place] [address] Dr. Alfredo Lizama RBC 20-50 Abnormal 0-2 [facility] Comment on above: Performed By: #### U MICRO, ERUR #### [facility] [address] [place] [address] Dr. Alfredo Lizama WBC 20-50 Abnormal NONE SEEN [facility] Comment on above: Performed By: #### U MICRO, ERUR #### [facility] [address] [place] [address] Dr. Alfredo Lizama XR ABD FLAT_UPon 11-09-2022 [...] ENRIQUE LOWE Date: 2022-11-09 11:06 Normal [facility] CULTURE URINEon 10-18-2022 CULTURE URINE Isolate [...] Trimethoprim/Sulfamethoxa zole <=10 S F Normal [facility] Comment on above: Performed By: #### U MICRO, ERUR #### [facility] [address] [place] [address] Dr. Alfredo Lizama ER URINE PROFILEon 3 Bilirubin Ql (U) Negative Normal NEGATIVE [facility] Comment on above: Performed By: #### LINDA CHAVES #### [facility] [address] [place] [address] Dr. Alfredo Lizama Clarity (U) CLEAR Normal CLEAR [facility] Comment on above: Performed By: #### CHINMAY CHAVESRO #### [facility] [address] [place] [address] Dr. Alfredo Lizama Color (U) YELLOW Normal YELLOW [facility] Comment on above: Performed By: #### FER CHAVESICRO #### [facility] [address] [place] [address] Dr. Alfredo RAYMUNDO A micrscopic examina tion will be performed if indicated. Normal [facility] Comment on above: Performed By: #### Jacque ESTRADA UMICRO #### [facility] [address] [place] [address] Dr. Alfredo Lizama Glucose Ql (U) Negative Normal NEGATIVE [facility] Comment on above: Performed By: #### Jacque ESTRADA UMICRO #### [facility] [address] [place] [address] Dr. Alfredo Lizama Hemoglobin Ql (U) LARGE Abnormal NEGATIVE [facility] Comment on above: Performed By: #### Jacque ESTRADA UMICRO #### [facility] [address] [place] [address] Dr. Alfredo Lizama Ketones Ql (U) Negative Normal NEGATIVE [facility] Comment on above: Performed By: #### Jacque ESTRADA UMICRO #### [facility] [address] [place] [address] Dr. Alfredo Lizama LEUKOCYTES LARGE Abnormal NEGATIVE [facility] Comment on above: Performed By: #### Jacque ESTRADA UMICRO #### [facility] [address] [place] [address] Dr. Alfredo Lizama Nitrite Ql (U) Positive Abnormal NEGATIVE [facility] Comment on above: Performed By: #### Jacque ESTRADA UMICRO #### [facility] [address] [place] [address] Dr. Alfredo Lizama pH (U) 6.5 [pH] Normal 5-9 [facility] Comment on above: Performed By: #### FER CHAVESICRO #### [facility] [address] [place] [address] Dr. Alfredo Lizama Protein (U) [Mass/Vol] 100 mg/dL Abnormal NEGAT LATISHA/ TRACE [facility] Comment on above: Performed By: #### Jacque ESTRADA UMICRO #### [facility] [address] [place] [address] Dr. Alfredo Lizama SPEC GRAVITY 1.010 Normal 1.005-<=1. 025 [facility] Comment on above: Performed By: #### CHINMAY CHAVESRO #### [facility] [address] [place] [address] Dr. Alfredo Lizama UR MICRO IND INDICATED Normal [facility] Comment on above: Performed By: #### FER CHAVESICRO #### [facility] [address] [place] [address] Dr. Alfredo Lizama Urobilinogen Qn (U) 1.0 {Tesha'U}/dL Normal 0.2 - 1. 0 [facility] Comment on above: Performed By: #### E RURLINDA #### [facility] [address] [place] [address] Dr. Alfredo Lizama URINE MICROSCOPIC ONLYon BACTERIA MODERATE Abnormal NONE SEEN [facility] Comment on above: Performed By: #### U MICRO, ERUR #### [facility] [address] [place] [address] Dr. Alfredo Lizama Bacteria identified Cx Nom (U) INDICATED Normal [facility] Comment on above: Performed By: #### U MICRO, ERUR #### [facility] [address] [place] [address] Dr. Alfredo Lizama CA OX CRYSTALS RARE Normal [facility] Comment on above: Performed By: #### U MICRO, ERUR #### [facility] [address] [place] [address] Dr. Alfredo Lizama CAST NONE SEEN Normal NONE SEEN [facility] Comment on above: Performed By: #### U MICRO, ERUR #### [facility] [address] [place] [address] Dr. Alfredo Lizama Crystals LM Nom (Urine sed) SEEN Abnormal NONE SEEN [facility] Comment on above: Performed By: #### U MICRO, ERUR #### [facility] [address] [place] [address] Dr. Alfredo Lizama Epithelial cells LM Ql (Urine sed) MODERATE Abnormal NONE SEEN /RARE [facility] Comment on above: Performed By: #### U MICRO, ERUR #### [facility] [address] [place] [address] Dr. Alfredo Lizama MUCOUS TRACE Abnormal NONE SEEN [facility] Comment on above: Performed By: #### U MICRO, ERUR #### [facility] [address] [place] [address] Dr. Alfredo Lizama RBC 20-50 Abnormal 0-2 [facility] Comment on above: Performed By: #### U MICRO, ERUR #### [facility] [address] [place] [address] Dr. Alfredo Lizama WBC 50-75 Abnormal NONE SEEN [facility] Comment on above: Performed By: #### U MICRO, ERUR #### [facility] [address] [place] [address] Dr. Alfredo Lizama Covid-19 PCR ([facility])on 08-06 SARS-CoV-2 (COVID-19) RNA ADRIÁN+probe Ql (Unsp spec) Not detected Normal NOT DETECTED [facility] Comment on above: Result Comment: When [...] for this test is supported by the [place] [employer] and [employer]'s declaration that [...] Performed By: #### U MICRO, ERUR #### [facility] [address] [place] [address] Dr. Alfredo Lizama CBC AUTO DIFFon 08-24-2022 BASO # 0.1 103/ul Normal 0.0-0.1 [facility] Comment on above: Performed By: #### C BC #### [facility] [address] [place] [address] Dr. Alfredo Lizama Basophils/100 WBC (Bld) 0.8 % Normal 0.2-2.0 [facility] Comment on above: Performed By: #### C BC #### [facility] [address] [place] [address] Dr. Alfredo Lizama EO # 0.3 103/ul Normal 0.0-0.7 [facility] Comment on above: Performed By: #### C BC #### [facility] [address] [place] [address] Dr. Alfredo Lizama Eosinophils/100 WBC (Bld) 3.1 % Normal 0.9-7.0 [facility] Comment on above: Performed By: #### C BC #### [facility] [address] [place] [address] Dr. Alfredo Lizama Erythrocyte distribution width (RBC) [Ratio] 13.4 % Normal 11.0-15.0 [facility] Comment on above: Performed By: #### C BC #### [facility] [address] [place] [address] Dr. Alfredo Lizama Hematocrit (Bld) [Volume fraction] 47.2 % Normal 36.0-48.0 [facility] Comment on above: Performed By: #### C BC #### [facility] [address] [place] [address] Dr. Alfredo Lizama Hemoglobin (Bld) [Mass/Vol] 15.6 g/dL Normal 12.0-16.0 [facility] Comment on above: Performed By: #### C BC #### [facility] [address] [place] [address] Dr. Alfredo Lizama IG # 0.02 10e3/ul Normal 0.00-0.03 [facility] Comment on above: Performed By: #### C BC #### [facility] [address] [place] [address] Dr. Alfredo Lizama IG % 0.2 % Normal 0.0-0.5 [facility] Comment on above: Performed By: #### C BC #### [facility] [address] [place] [address] Dr. Alfredo Lizama LYMPH # 4.4 103/ul Critically high 1.2-3.8 [facility] Comment on above: Performed By: #### C BC #### [facility] [address] [place] [address] Dr. Alfredo Lizama Lymphocytes/100 WBC (Bld) 42.3 % Normal 20.5-60.0 [facility] Comment on above: Performed By: #### C BC #### [facility] [address] [place] [address] Dr. Alfredo Lizama MANUAL DIFF REQ NO Normal [facility] Comment on above: Performed By: #### C BC #### [facility] [address] [place] [address] Dr. Alfredo Lizama MCH (RBC) [Entitic mass] 28.8 pg Normal 26.7-34.0 [facility] Comment on above: Performed By: #### C BC #### [facility] [address] [place] [address] Dr. Alfredo Lizama MCHC (RBC) [Mass/Vol] 33.1 g/dL Normal 29.9-35.2 [facility] Comment on above: Performed By: #### C BC #### [facility] [address] [place] [address] Dr. Alfredo Lizama MCV (RBC) [Entitic vol] 87.2 fL Normal 81.0-99.0 [facility] Comment on above: Performed By: #### C BC #### [facility] [address] [place] [address] Dr. Alfredo Lizama MONO # 0.6 103/ul Normal 0.3-0.8 [facility] Comment on above: Performed By: #### C BC #### [facility] [address] [place] [address] Dr. Alfredo Lizama Monocytes/100 WBC (Bld) 5.3 % Normal 1.7-12.0 [facility] Comment on above: Performed By: #### C BC #### [facility] [address] [place] [address] Dr. Alfredo Lizama NEUT # 5.0 103/ul Normal 1.4-6.5 [facility] Comment on above: Performed By: #### C BC #### [facility] [address] [place] [address] Dr. Alfredo Lizama Neutrophils/100 WBC (Bld) 48.3 % Normal 43.0-75.0 [facility] Comment on above: Performed By: #### C BC #### [facility] [address] [address] [address] Alfredo Lizama Platelet mean volume (Bld) [Entitic vol] 9.9 fL Normal 9.5-13.5 [facility] Comment on above: Performed By: #### C BC #### [facility] [address] [place] [address] Dr. Alfredo Lizama PLT 298 103/ul Normal 150-450 [facility] Comment on above: Performed By: #### C BC #### [facility] [address] [address] [address] Alfredo Lizama RBC 5.41 106/ul Critically high 4.20-5.40 [facility] Comment on above: Performed By: #### C BC #### [facility] [address] [place] [address] Dr. Alfredo Lizama WBC 10.3 103/ul Normal 4.0-11.0 [facility] Comment on above: Performed By: #### C BC #### [facility] [address] [place] [address] Dr. Alfredo Lizama PROF CHEM 8 (BAS METB)on Anion gap [Moles/Vol] 14.3 mmol/L Normal [facility] Comment on above: Performed By: #### U MICRO, ERUR #### [facility] [address] [place] [address] Dr. Alfredo Lizama Calcium [Mass/Vol] 9.1 mg/dL Normal 8.5-10.1 [facility] Comment on above: Performed By: #### U MICRO, ERUR #### [facility] [address] [place] [address] Dr. Alfredo Lizama Chloride [Moles/Vol] 99 mmol/L Normal 98-107 [facility] Comment on above: Performed By: #### U MICRO, ERUR #### [facility] [address] [place] [address] Dr. Alfredo Lizama CO2 [Moles/Vol] 29.0 mmol/L Normal 21.0-32.0 [facility] Comment on above: Performed By: #### U MICRO, ERUR #### [facility] [address] [place] [address] Dr. Alfredo Lizama Creatinine [Mass/Vol] 0.70 mg/dL Normal 0.55-1.02 [facility] Comment on above: Performed By: #### U MICRO, ERUR #### [facility] [address] [address] [address] Alfredo Lizama EGFR-AF MALIAN >60 Normal >=60 [facility] Comment on above: Performed By: #### U MICRO, ERUR #### [facility] [address] [place] [address] Dr. Alfredo Lizama EGFR-NON AF MALIAN >60 Normal >=60 [facility] Comment on above: Performed By: #### U MICRO, ERUR #### [facility] [address] [place] [address] Dr. Alfredo Lizama Glucose [Mass/Vol] 121 mg/dL Critically high 74-106 [facility] Comment on above: Performed By: #### U MICRO, ERUR #### [facility] [address] [address] [address] Alfredo Lizama Potassium [Moles/Vol] 3.3 mmol/L Critically low 3.5-5.1 [facility] Comment on above: Performed By: #### U MICRO, ERUR #### [facility] [address] [place] [address] Dr. Alfredo Lizama Sodium [Moles/Vol] 139 mmol/L Normal 136-145 [facility] Comment on above: Performed By: #### U MICRO, ERUR #### [facility] [address] [address] [address] Alfredo Lizama Urea nitrogen [Mass/Vol] 5.0 mg/dL Critically low 7.0-18. 0 [facility] Comment on above: Performed By: #### U MICRO, ERUR #### [facility] [address] [address] [address] Alfredo Lizama Urea nitrogen/Creatinine [Mass ratio] 7.1 mg/mg Normal [facility] Comment on above: Performed By: #### U MICRO, ERUR #### [facility] [address] [place] [address] Dr. Alfredo Lizama PROTIMEon 08-24-2022 INR Coag (PPP) [Relative time] 0.99 {INR} Normal [facility] Comment on above: Performed By: #### P T, PTT #### [facility] [address] [place] [address] Dr. Alfredo Lizama INR GUIDELINES SEE BELOW Normal [facility] Comment on above: Result Comment: MARY JO RED INR: 2.0 - 3.0 CONDITIONS NOT LISTED BELOW 2.5 - 3.5 FOR PROSTHETIC HEART VALVE REPLACEMENT 2.5 - 3.5 RECURRENT THROMBOSIS Performed By: #### P T, PTT #### [facility] [address] [place] [address] Dr. Alfredo Lizama PT Coag (PPP) [Time] 10.7 s Normal 9.0-11.6 [facility] Comment on above: Performed By: #### P T, PTT #### [facility] [address] [place] [address] Dr. Alfredo iLzama PTTon 08-24-2022 aPTT Coag (Bld) [Time] 31.7 s Normal 22.3-36.2 [facility] Comment on above: Performed By: #### P T, PTT #### [facility] [address] [place] [address] Dr. Alfredo Lizama BN SACRUM/COCCYX, MIN 2 [...] 09/20/2019. Thoracolumbar spine radiographs 09/08/2021. ACCESSION NUMBER(S): [id number]; [id number]; [id number] ORDERING CLINICIAN: CANDICE PEREZ FINDINGS: Three views [...] stated. Electronically signed by: GOMEZ JAMA MD [facility] BN SPINE, LUMBOSACRAL; 2 OR 3 [...] 09/20/2019. Thoracolumbar spine radiographs 09/08/2021. ACCESSION NUMBER(S): [id number]; [id number]; [id number] ORDERING CLINICIAN: CANDICE PEREZ FINDINGS: Three views [...] stated. Electronically signed by: GOMEZ JAMA MD [facility] BN SPINE, THORACIC, 3 VIEWSo n [...] 09/20/2019. Thoracolumbar spine radiographs 09/08/2021. ACCESSION NUMBER(S): [id number]; [id number]; [id number] ORDERING CLINICIAN: CANDICE HEERSINK FINDINGS: Three views [...] Electronically signed by: GOMEZ JAMA MD Normal [facility] CBC AND DIFFERENTIALon 06-07 % AUTOMATED IMMATURE GRAN 0.2 % Normal 0.0 - 0.9 [facility] Comment on above: Result Comment: Jaleesa ture Granulocyte Count (IG) includes promyelocytes, myelocytes and metamyelocytes but does not include bands. Percent differential counts (%) should be interpreted in the context of the absolute cell counts (cells/L). Performed By: #### R ENAL #### [facility] [address] [place] [address] Basophils (Bld) [#/Vol] 0.09 10*3/uL Normal 0.00 - 0.10 [facility] Comment on above: Performed By: #### R ENAL #### [facility] [address] [place] [address] Basophils/100 WBC (Bld) 1.0 % Normal 0.0 - 2.0 [facility] Comment on above: Performed By: #### R ENAL #### [facility] [address] [place] [address] Eosinophils (Bld) [#/Vol] 0.24 10*3/uL Normal 0.00 - 0.70 [facility] Comment on above: Performed By: #### R ENAL #### [facility] [address] [place] [address] Eosinophils/100 WBC (Bld) 2.6 % Normal 0.0 - 6.0 [facility] Comment on above: Performed By: #### R ENAL #### [facility] [address] [place] [address] Erythrocyte distribution width (RBC) [Ratio] 12.9 % Normal 11.5 - 14.5 [facility] Comment on above: Performed By: #### R ENAL #### [facility] [address] [place] [address] Hematocrit (Bld) [Volume fraction] 48.4 % High 36.0 - 46.0 [facility] Comment on above: Performed By: #### R ENAL #### [facility] [address] [place] [address] Hemoglobin (Bld) [Mass/Vol] 17.1 g/dL High 12.0 - 16.0 [facility] Comment on above: Performed By: #### R ENAL #### [facility] [address] [place] [address] Lymphocytes (Bld) [#/Vol] 2.93 10*3/uL Normal 1.20 - 4.80 [facility] Comment on above: Performed By: #### R ENAL #### [facility] [address] [place] [address] Lymphocytes/100 WBC (Bld) 31.9 % Normal 13.0 - 44.0 [facility] Comment on above: Performed By: #### R ENAL #### [facility] [address] [place] [address] MCHC (RBC) [Mass/Vol] 35.3 g/dL Normal 32.0 - 36.0 [facility] Comment on above: Performed By: #### R ENAL #### [facility] [address] [place] [address] MCV (RBC) [Entitic vol] 85 fL Normal 80 - 100 [facility] Comment on above: Performed By: #### R ENAL #### [facility] [address] [place] [address] Monocytes (Bld) [#/Vol] 0.36 10*3/uL Normal 0.10 - 1.00 [facility] Comment on above: Performed By: #### R ENAL #### [facility] [address] [place] [address] Monocytes/100 WBC (Bld) 3.9 % Normal 2.0 - 10.0 [facility] Comment on above: Performed By: #### R ENAL #### [facility] [address] [place] [address] Neutrophils (Bld) [#/Vol] 5.54 10*3/uL Normal 1.20 - 7.70 [facility] Comment on above: Performed By: #### R ENAL #### [facility] [address] [place] [address] Neutrophils/100 WBC (Bld) 60.4 % Normal 40.0 - 80.0 [facility] Comment on above: Performed By: #### R ENAL #### [facility] [address] [place] [address] NUCLEATED RBC 0.0 /100 WBC Normal 0.0-0.0 [facility] Comment on above: Performed By: #### R ENAL #### [facility] [address] [place] [address] Platelets (Bld) [#/Vol] 365 10*3/uL Normal 150 - 450 [facility] Comment on above: Performed By: #### R ENAL #### [facility] [address] [place] [address] RBC 5.69 x10E12/L High 4.00 - 5.20 [facility] Comment on above: Performed By: #### R ENAL #### [facility] [address] [place] [address] WBC (Bld) [#/Vol] 9.2 10*3/uL Normal 4.4 - 11.3 [facility] Comment on above: Performed By: #### R ENAL #### [facility] [address] [place] [address] COMPREHENSIVE PANELon 2021 Albumin [Mass/Vol] 4.6 g/dL Normal 3.4 - 5.0 [facility] Comment on above: Performed By: #### R ENAL #### [facility] [address] [place] [address] ALP [Catalytic activity/Vol] 192 U/L High 33 - 110 [facility] Comment on above: Performed By: #### R ENAL #### [facility] [address] [place] [address] ALT [Catalytic activity/Vol] 33 U/L Normal 7 - 45 [facility] Comment on above: Result Comment: Melly ents treated with Sulfasalazine may generate falsely decreased results for ALT. Performed By: #### R ENAL #### [facility] [address] [place] [address] Anion gap [Moles/Vol] 16 mmol/L Normal 10 - 20 [facility] Comment on above: Performed By: #### R ENAL #### [facility] [address] [place] [address] AST [Catalytic activity/Vol] 51 U/L High 9 - 39 [facility] Comment on above: Performed By: #### R ENAL #### [facility] [address] [place] [address] Bilirubin [Mass/Vol] 0.5 mg/dL Normal 0.0 - 1.2 [facility] Comment on above: Performed By: #### R ENAL #### [facility] [address] [place] [address] Calcium [Mass/Vol] 10.3 mg/dL Normal 8.6 - 10.6 [facility] Comment on above: Performed By: #### R ENAL #### [facility] [address] [place] [address] Chloride [Moles/Vol] 101 mmol/L Normal 98 - 107 [facility] Comment on above: Performed By: #### R ENAL #### [facility] [address] [place] [address] Creatinine [Mass/Vol] 0.61 mg/dL Normal 0.50 - 1.05 [facility] Comment on above: Performed By: #### R ENAL #### [facility] [address] [place] [address] eGFR FEMALE >90 Normal >90 [facility] Comment on above: Result Comment: CALC ULATIONS OF ESTIMATED GFR ARE PERFORMED USING THE 2020 CKD-EPI STUDY REFIT EQUATION WITHOUT THE RACE VARIABLE FOR THE IDMS-TRACEABLE CREATININE METHODS. https://jasn.asnjournals.org/content/early/ASN.125 1374129 Performed By: #### R ENAL #### [facility] [address] [place] [address] Glucose [Mass/Vol] 100 mg/dL High 74 - 99 [facility] Comment on above: Performed By: #### R ENAL #### [facility] [address] [place] [address] HCO3 (Bld) [Moles/Vol] 27 mmol/L Normal 21 - 32 [facility] Comment on above: Performed By: #### R ENAL #### [facility] [address] [place] [address] Potassium [Moles/Vol] 3.8 mmol/L Normal 3.5 - 5.3 [facility] Comment on above: Performed By: #### R ENAL #### [facility] [address] [place] [address] Protein [Mass/Vol] 8.2 g/dL Normal 6.4 - 8.2 [facility] Comment on above: Performed By: #### R ENAL #### [facility] [address] [place] [address] Sodium [Moles/Vol] 140 mmol/L Normal 136 - 145 [facility] Comment on above: Performed By: #### R ENAL #### [facility] [address] [place] [address] Urea nitrogen [Mass/Vol] 5 mg/dL Low 6 - 23 [facility] Comment on above: Performed By: #### R ENAL #### [facility] [address] [place] [address] Consult - Neuro-Surgeryon Consult - Neuro-Surgery Service: [...] Updated: 07-Jun-2022 11:22 by Perez Carlisle) Normal [facility] NR CT L-SPINE WO CONTRASTon 06-07-[address] L-SPINE WO CONTRAST Patient Name: MORALES LEE STUDY: CT T-SPINE WO CONTRAST; CT L-SPINE WO CONTRAST 06/06/2022 11:03 pm INDICATION: ok, Lie Flat: Yes COMPARISON: 09/20/2021 MRI and 09/18/2021 CT ACCESSION NUMBER(S): [id number]; [id number] ORDERING CLINICIAN: CANDICE PEREZ TECHNIQUE: Axial CT [...] osseous spinal canal or neural foraminal stenosis. [id number]-[id number] spinal canal and neural foraminal narrowing described [...] Electronically signed by: CELI MCNEIL DO Normal [facility] NR CT T-SPINE WO CONTRASTon 06-07-[address] T-SPINE WO CONTRAST Patient Name: MORALES LEE STUDY: CT T-SPINE WO CONTRAST; CT L-SPINE WO CONTRAST 06/06/2022 11:03 pm INDICATION: ok, Lie Flat: Yes COMPARISON: 09/20/2021 MRI and 09/18/2021 CT ACCESSION NUMBER(S): [id number]; [id number] ORDERING CLINICIAN: CANDICE PEREZ TECHNIQUE: Axial CT [...] osseous spinal canal or neural foraminal stenosis. Fkwx-qo-aiczedib spinal canal and neural foraminal narrowing described [...] view. Electronically signed by: DO Andrei TOURE [facility] Provider Note - ED Care Diaz cassieon [...] 21-Jun-2022 06:18 by Yony Aguirre () Normal [facility] Provider Note - ED v3on 10-0 [...] - M21.37 (more content not included)... Normal [facility] Triage - EDon 06-06-2022 Triage - ED [...] BMI (kg/m2): 34.793 Calculated BSA (m2) 1.94 Colp Coma Scale: Best Eye Response: (E4) spontaneous Best Motor Response: (M6) obeys commands Best Verbal Response: (V5) oriented Colp Score: 15 Mask applied: yes Patient has [...] 06-Jun-2022 19:07 by Meghan Chavez (MERA) Normal [facility] CULTURE URINEon 05-10-2022 CULTURE URINE Isolate 1 [...] F Trimethoprim/Sulfamethoxa zole <=20 S F Normal [facility] Comment on above: Performed By: #### U MICRO, ERUR #### [facility] [address] [place] [address] Dr. Alfredo Lizama CBC AUTO DIFFon 05-07-2022 BASO # 0.1 103/ul Normal 0.0-0.1 [facility] Comment on above: Performed By: #### U MICRO, ERUR #### [facility] [address] [place] [address] Dr. Alfredo Lizama Basophils/100 WBC (Bld) 0.5 % Normal 0.2-2.0 [facility] Comment on above: Performed By: #### U MICRO, ERUR #### [facility] [address] [place] [address] Dr. Alfredo Lizama EO # 0.4 103/ul Normal 0.0-0.7 [facility] Comment on above: Performed By: #### U MICRO, ERUR #### [facility] [address] [place] [address] Dr. Alfredo Lizama Eosinophils/100 WBC (Bld) 3.5 % Normal 0.9-7.0 [facility] Comment on above: Performed By: #### U MICRO, ERUR #### [facility] [address] [place] [address] Dr. Alferdo Lizama Erythrocyte distribution width (RBC) [Ratio] 13.2 % Normal 11.0-15.0 [facility] Comment on above: Performed By: #### U MICRO, ERUR #### [facility] [address] [place] [address] Dr. Alfredo Lizama Hematocrit (Bld) [Volume fraction] 44.0 % Normal 36.0-48.0 [facility] Comment on above: Performed By: #### U MICRO, ERUR #### [facility] [address] [address] [address] Alfredo Lizama Hemoglobin (Bld) [Mass/Vol] 14.8 g/dL Normal 12.0-16.0 [facility] Comment on above: Performed By: #### U MICRO, ERUR #### [facility] [address] [place] [address] Dr. Alfredo Lizama IG # 0.03 10e3/ul Normal 0.00-0.03 [facility] Comment on above: Performed By: #### U MICRO, ERUR #### [facility] [address] [place] [address] Dr. Alfredo Lizama IG % 0.2 % Normal 0.0-0.5 [facility] Comment on above: Performed By: #### U MICRO, ERUR #### [facility] [address] [place] [address] Dr. Alfredo Lizama LYMPH # 3.8 103/ul Normal 1.2-3.8 [facility] Comment on above: Performed By: #### U MICRO, ERUR #### [facility] [address] [place] [address] Dr. Alfredo Lizama Lymphocytes/100 WBC (Bld) 31.3 % Normal 20.5-60.0 [facility] Comment on above: Performed By: #### U MICRO, ERUR #### [facility] [address] [place] [address] Dr. Alfredo Lizama MANUAL DIFF REQ NO Normal [facility] Comment on above: Performed By: #### U MICRO, ERUR #### [facility] [address] [place] [address] Dr. Alfredo Lizama MCH (RBC) [Entitic mass] 28.8 pg Normal 26.7-34.0 [facility] Comment on above: Performed By: #### U MICRO, ERUR #### [facility] [address] [place] [address] Dr. Alfredo Lizama MCHC (RBC) [Mass/Vol] 33.6 g/dL Normal 29.9-35.2 [facility] Comment on above: Performed By: #### U MICRO, ERUR #### [facility] [address] [place] [address] Dr. Alfredo Lizama MCV (RBC) [Entitic vol] 85.8 fL Normal 81.0-99.0 [facility] Comment on above: Performed By: #### U MICRO, ERUR #### [facility] [address] [place] [address] Dr. Alfredo Lizama MONO # 0.7 103/ul Normal 0.3-0.8 [facility] Comment on above: Performed By: #### U MICRO, ERUR #### [facility] [address] [place] [address] Dr. Alfredo Lizama Monocytes/100 WBC (Bld) 5.8 % Normal 1.7-12.0 [facility] Comment on above: Performed By: #### U MICRO, ERUR #### [facility] [address] [place] [address] Dr. Alfredo Lizama NEUT # 7.1 103/ul Critically high 1.4-6.5 [facility] Comment on above: Performed By: #### U MICRO, ERUR #### [facility] [address] [place] [address] Dr. Alfredo Lizama Neutrophils/100 WBC (Bld) 58.7 % Normal 43.0-75.0 [facility] Comment on above: Performed By: #### U MICRO, ERUR #### [facility] [address] [place] [address] Dr. Alfredo Lizama Platelet mean volume (Bld) [Entitic vol] 9.6 fL Normal 9.5-13.5 [facility] Comment on above: Performed By: #### U MICRO, ERUR #### [facility] [address] [place] [address] Dr. Alfredo Lizama PLT 269 103/ul Normal 150-450 [facility] Comment on above: Performed By: #### U MICRO, ERUR #### [facility] [address] [place] [address] Dr. Alfredo Lizama RBC 5.13 106/ul Normal 4.20-5.40 [facility] Comment on above: Performed By: #### U MICRO, ERUR #### [facility] [address] [place], [place] [address] Dr. Alfredo Lizama WBC 12.2 103/ul Critically high 4.0-11.0 [facility] Comment on above: Performed By: #### U MICRO, ERUR #### [facility] [address] [place], [place] [address] ABD/PELV W CONon [...] KORIN STANLEY Date: 2022-05-07 14:00 Normal [facility] ER URINE PROFILEon 2 Bilirubin Ql (U) Negative Normal NEGATIVE [facility] Comment on above: Performed By: #### U MICRO, ERUR #### [facility] [address] [place] [address] Dr. Alfredo Lizama Clarity (U) CLOUDY Abnormal CLEAR [facility] Comment on above: Performed By: #### U MICRO, ERUR #### [facility] [address] [place] [address] Dr. Alfredo Lizama Color (U) LT. YELLOW Normal YELLOW [facility] Comment on above: Performed By: #### U MICRO, ERUR #### [facility] [address] [place] [address] Dr. Alfredo Lizama ERUBYROND A micrscopic examina tion will be performed if indicated. Normal [facility] Comment on above: Performed By: #### U MICRO, ERUR #### [facility] [address] [place] [address] Dr. Alfredo Lizama Glucose Ql (U) Negative Normal NEGATIVE [facility] Comment on above: Performed By: #### U MICRO, ERUR #### [facility] [address] [place] [address] Dr. Alfredo Lizama Hemoglobin Ql (U) LARGE Abnormal NEGATIVE [facility] Comment on above: Performed By: #### U MICRO, ERUR #### [facility] [address] [place] [address] Dr. Alfredo Lizama Ketones Ql (U) Negative Normal NEGATIVE [facility] Comment on above: Performed By: #### U MICRO, ERUR #### [facility] [address] [place] [address] Dr. Alfredo Lizama LEUKOCYTES MODERATE Abnormal NEGATIVE [facility] Comment on above: Performed By: #### U MICRO, ERUR #### [facility] [address] [address] [address] Alfredo Lizama Nitrite Ql (U) Positive Abnormal NEGATIVE [facility] Comment on above: Performed By: #### U MICRO, ERUR #### [facility] [address] [place] [address] Dr. Alfredo Lizama pH (U) 8.5 [pH] Normal 5-9 [facility] Comment on above: Performed By: #### U MICRO, ERUR #### [facility] [address] [place] [address] Dr. Alfredo Lizama Protein (U) [Mass/Vol] 100 mg/dL Abnormal NEGAT LATISHA/ TRACE [facility] Comment on above: Performed By: #### U MICRO, ERUR #### [facility] [address] [place] [address] Dr. Alfredo Lizama SPEC GRAVITY 1.015 Normal 1.005-<=1. 025 [facility] Comment on above: Performed By: #### U MICRO, ERUR #### [facility] [address] [place] [address] Dr. Alfredo Lizama UR MICRO IND INDICATED Normal [facility] Comment on above: Performed By: #### U MICRO, ERUR #### [facility] [address] [place] [address] Dr. Alfredo Lizama Urobilinogen Qn (U) 1.0 {Tesha'U}/dL Normal 0.2 - 1. 0 [facility] Comment on above: Performed By: #### U MICRO, ERUR #### [facility] [address] [place] [address] Dr. Alfredo Lizama PROF CHEM 8 (BAS METB)on Anion gap [Moles/Vol] 12.0 mmol/L Normal [facility] Comment on above: Performed By: #### U MICRO, ERUR #### [facility] [address] [address] [address] Alfredo Lizama Calcium [Mass/Vol] 8.6 mg/dL Normal 8.5-10.1 [facility] Comment on above: Performed By: #### U MICRO, ERUR #### [facility] [address] [place] [address] Dr. Alfredo Lizama Chloride [Moles/Vol] 101 mmol/L Normal 98-107 [facility] Comment on above: Performed By: #### U MICRO, ERUR #### [facility] [address] [place] [address] Dr. Alfredo Lizama CO2 [Moles/Vol] 28.0 mmol/L Normal 21.0-32.0 [facility] Comment on above: Performed By: #### U MICRO, ERUR #### [facility] [address] [place] [address] Dr. Alfredo Lizama Creatinine [Mass/Vol] 0.77 mg/dL Normal 0.55-1.02 [facility] Comment on above: Performed By: #### U MICRO, ERUR #### [facility] [address] [place] [address] Dr. Alfredo Lizama EGFR-AF MALIAN >60 Normal >=60 [facility] Comment on above: Performed By: #### U MICRO, ERUR #### [facility] [address] [place] [address] Dr. Alfredo Lizama EGFR-NON AF MALIAN >60 Normal >=60 [facility] Comment on above: Performed By: #### U MICRO, ERUR #### [facility] [address] [place] [address] Dr. Alfredo Lizama Glucose [Mass/Vol] 96 mg/dL Normal 74-106 [facility] Comment on above: Performed By: #### U MICRO, ERUR #### [facility] [address] [place] [address] Dr. Alfredo Lizama Potassium [Moles/Vol] 4.0 mmol/L Normal 3.5-5.1 [facility] Comment on above: Performed By: #### U MICRO, ERUR #### [facility] [address] [address] [address] Alfredo Lizama Sodium [Moles/Vol] 137 mmol/L Normal 136-145 [facility] Comment on above: Performed By: #### U MICRO, ERUR #### [facility] [address] [place] [address] Dr. Alfredo Lizama Urea nitrogen [Mass/Vol] 7.0 mg/dL Normal 7.0-18.0 [facility] Comment on above: Performed By: #### U MICRO, ERUR #### [facility] [address] [place] [address] Dr. Alfredo Lizama Urea nitrogen/Creatinine [Mass ratio] 9.1 mg/mg Normal [facility] Comment on above: Performed By: #### U MICRO, ERUR #### [facility] [address] [place] [address] Dr. Alfredo Lizama URINE MICROSCOPIC ONLYon BACTERIA MODERATE Abnormal NONE SEEN [facility] Comment on above: Performed By: #### U MICRO, ERUR #### [facility] [address] [place] [address] Dr. Alfredo Lizama Bacteria identified Cx Nom (U) INDICATED Normal [facility] Comment on above: Performed By: #### U MICRO, ERUR #### [facility] [address] [place] [address] Dr. Alfredo Lizama CAST NONE SEEN Normal NONE SEEN [facility] Comment on above: Performed By: #### U MICRO, ERUR #### [facility] [address] [place] [address] Dr. Alfredo Lizama Crystals LM Nom (Urine sed) NONE SEEN Normal NONE SEEN [facility] Comment on above: Performed By: #### U MICRO, ERUR #### [facility] [address] [place] [address] Dr. Alfredo Lizama Epithelial cells LM Ql (Urine sed) FEW Abnormal NONE SEEN /RARE [facility] Comment on above: Performed By: #### U MICRO, ERUR #### [facility] [address] [address] [address] Alfredo Lizama MUCOUS NONE SEEN Normal NONE SEEN [facility] Comment on above: Performed By: #### U MICRO, ERUR #### [facility] [address] [place] [address] Dr. Alfredo Lizama RBC 2-5 Abnormal 0-2 [facility] Comment on above: Performed By: #### U MICRO, ERUR #### [facility] [address] [address] [address] Alfredo Lizmaa WBC 10-20 Abnormal NONE SEEN [facility] Comment on above: Performed By: #### U MICRO, ERUR #### [facility] [address] [place] [address] Dr. Alfredo Lizama CULTURE URINEon 04-10-2022 CULTURE [...] Trimethoprim/Sulfamethoxa zole <=20 S F Normal [facility] Comment on above: Performed By: #### U MICRO, ERUR #### [facility] [address] [address] [address] Alfredo SANDY URINE PROFILEon 2 Bilirubin Ql (U) Negative Normal NEGATIVE [facility] Comment on above: Performed By: #### U MICRO, ERUR #### [facility] [address] [address] [address] Alfredo Lizama Clarity (U) CLOUDY Abnormal CLEAR [facility] Comment on above: Performed By: #### U MICRO, ERUR #### [facility] [address] [address] [address] Alfredo Lizama Color (U) YELLOW Normal YELLOW [facility] Comment on above: Performed By: #### U MICRO, ERUR #### [facility] [address] [place] [address] Dr. Alfredo Liazma ERUAHD A micrscopic examina tion will be performed if indicated. Normal [facility] Comment on above: Performed By: #### U MICRO, ERUR #### [facility] [address] [address] [address] Alfredo Lizama Glucose Ql (U) Negative Normal NEGATIVE [facility] Comment on above: Performed By: #### U MICRO, ERUR #### [facility] [address] [place] [address] Dr. Alfredo Lizama Hemoglobin Ql (U) SMALL Abnormal NEGATIVE [facility] Comment on above: Performed By: #### U MICRO, ERUR #### [facility] [address] [address] [address] Alfredo Lizama Ketones Ql (U) Negative Normal NEGATIVE [facility] Comment on above: Performed By: #### U MICRO, ERUR #### [facility] [address] [address] [address] Alfredo Lizama LEUKOCYTES LARGE Abnormal NEGATIVE [facility] Comment on above: Performed By: #### U MICRO, ERUR #### [facility] [address] [address] [address] Alfredo Lizama Nitrite Ql (U) Negative Normal NEGATIVE [facility] Comment on above: Performed By: #### U MICRO, ERUR #### [facility] [address] [place] [address] Dr. Alfredo Lizama pH (U) 7.0 [pH] Normal 5-9 [facility] Comment on above: Performed By: #### U MICRO, ERUR #### [facility] [address] [place] [address] Dr. Alfredo Lizama SPEC GRAVITY <=1.005 Abnormal 1.005-<=1. 025 [facility] Comment on above: Performed By: #### U MICRO, ERUR #### [facility] [address] [place] [address] Dr. Alfredo Lizama UA PROTEIN Negative Normal NEGATIVE/ TRACE [facility] Comment on above: Performed By: #### U MICRO, ERUR #### [facility] [address] [place] [address] Dr. Alfredo Lizama UR MICRO IND INDICATED Normal [facility] Comment on above: Performed By: #### U MICRO, ERUR #### [facility] [address] [place] [address] Dr. Alfredo Lizama Urobilinogen Qn (U) 0.2 {Tesha'U}/dL Normal 0.2 - 1. 0 [facility] Comment on above: Performed By: #### U MICRO, ERUR #### [facility] [address] [place] [address] Dr. Alfredo Lizama URINE MICROSCOPIC ONLYon BACTERIA MODERATE Abnormal NONE SEEN [facility] Comment on above: Performed By: #### U MICRO, ERUR #### [facility] [address] [place] [address] Dr. Alfredo Lizama Bacteria identified Cx Nom (U) INDICATED Normal [facility] Comment on above: Performed By: #### U MICRO, ERUR #### [facility] [address] [place] [address] Dr. Alfredo Lizama CAST NONE SEEN Normal NONE SEEN [facility] Comment on above: Performed By: #### U MICRO, ERUR #### [facility] [address] [address] [address] Alfredo Lizama Crystals LM Nom (Urine sed) NONE SEEN Normal NONE SEEN [facility] Comment on above: Performed By: #### U MICRO, ERUR #### [facility] [address] [address] [address] Alfrdeo Lizama Epithelial cells LM Ql (Urine sed) FEW Abnormal NONE SEEN /RARE [facility] Comment on above: Performed By: #### U MICRO, ERUR #### [facility] [address] [address] [address] Alfredo Lizama MUCOUS NONE SEEN Normal NONE SEEN [facility] Comment on above: Performed By: #### U MICRO, ERUR #### [facility] [address] [address] [address] Alfredo Lizama RBC 5-10 Abnormal 0-2 [facility] Comment on above: Performed By: #### U MICRO, ERUR #### [facility] [address] [address] [address] Alfredo Lizama WBC (U) [#/Vol] /uL Abnormal NONE SEEN [facility] Comment on above: Performed By: #### U MICRO, ERUR #### [facility] [address] [address] [address] Alfredo Lizama Basic Metabolic Panelon 11-03 Calcium [Mass/Vol] 8.9 mg/dL Normal 8.2-10.2 [facility] Comment on above: Performed By: #### C BC, CMP, PAB #### [facility] [address] [place] [address] [place] Chloride [Moles/Vol] 101 mmol/L Normal 95-114 [facility] Comment on above: Performed By: #### C BC, CMP, PAB #### [facility] [address] [place] [address] [place] CO2 [Moles/Vol] 29.0 mmol/L Normal 22.0-30.0 [facility] Comment on above: Performed By: #### C BC, CMP, PAB #### [facility] [address] Creatinine [Mass/Vol] 0.48 mg/dL Normal 0.44-1.03 [facility] Comment on above: Performed By: #### C DARIUS PATEL, PAB #### [address] Creatinine Clr Calc Pharmacy 150.29 [facility] Comment on above: Result Comment: PERF ORMED BY: [place] [address] PATHOLOGIST [employer] [employer] HUY COX M.D. Performed By: #### C DARIUS PATEL, PAB #### [facility] [address] Estimated GFR ( July > 60 [facility] Comment on above: Result Comment: GFR estimated reference range: According to KDOQI guidelines, <60 ml/min/1.73m2 is sufficient to diagnose a patient with chronic kidney disease. Performed By: #### C DARIUS PATEL, PAB #### [address] Estimated GFR (Non- Am > 60 [facility] Comment on above: Performed By: #### C DARIUS PATEL, PAB #### [address] Glucose [Mass/Vol] 111 mg/dL High 70-100 [facility] Comment on above: Result Comment: [place] Glucose Reference Range is dependent on time and content of last meal. Glucose of more than 200 mg/dL in a nonstressed, ambulatory subject supports the diagnosis of Diabetes Mellitus. ADA recommended reference range Performed By: #### C DARIUS PATEL, PAB #### [facility] [address] Potassium [Moles/Vol] 3.6 mmol/L Normal 3.5-5.1 [facility] Comment on above: Performed By: #### C DARIUS PATEL, PAB #### [facility] [address] Sodium [Moles/Vol] 138 mmol/L Normal 136-146 [facility] Comment on above: Performed By: #### C BC, CMP, PAB #### [facility] [address] Urea nitrogen [Mass/Vol] 10 mg/dL Normal 9- [facility] Comment on above: Performed By: #### C BC, CMP, PAB #### [facility] [address] Complete Blood Count Auto Di ffon 11-19-2021 Basophils (Bld) [#/Vol] 0.1 10*3/uL Normal 0.0-0.2 [facility] Comment on above: Result Comment: PERF ORMED BY: [place] [address] PATHOLOGIST [facility] HUY COX M.D. Performed By: #### C BC, CMP, PAB #### [address] Basophils/100 WBC (Bld) 0.8 % Normal . [facility] Comment on above: Performed By: #### C BC, CMP, PAB #### [facility] [address] [place] [address] [place] Eosinophils (Bld) [#/Vol] 0.4 10*3/uL Normal 0.0-0.45 [facility] Comment on above: Performed By: #### C BC, CMP, PAB #### [place] [address] [place] Eosinophils/100 WBC (Bld) 5.8 % Normal . [facility] Comment on above: Performed By: #### C BC, CMP, PAB #### [facility] [address] Erythrocyte distribution width (RBC) [Ratio] 14.3 % Normal 11.9-15.3 [facility] Comment on above: Performed By: #### C BC, CMP, PAB #### [facility] [address] Hematocrit (Bld) [Volume fraction] 36.0 % Normal 34.0-46.4 [facility] Comment on above: Performed By: #### C BC, CMP, PAB #### [facility] [address] [place] [address] [place] Hemoglobin (Bld) [Mass/Vol] 11.9 g/dL Normal 11.8-15.4 [facility] Comment on above: Performed By: #### C BC, CMP, PAB #### [facility] [address] Lymphocytes (Bld) [#/Vol] 2.7 10*3/uL Normal 1.00-4.8 [facility] Comment on above: Performed By: #### C BC, CMP, PAB #### [facility] [address] Lymphocytes/100 WBC (Bld) 37.6 % Normal . [facility] Comment on above: Performed By: #### C BC, CMP, PAB #### [facility] [address] MCH (RBC) [Entitic mass] 28.1 pg Normal 24.7-34.3 [facility] Comment on above: Performed By: #### C BC, CMP, PAB #### [facility] [address] [place] [address] [place] MCV (RBC) [Entitic vol] 85.3 fL Normal 80-100 [facility] Comment on above: Performed By: #### C BC, CMP, PAB #### [facility] [address] Mean Corpuscular HGB Conc 32.9 g/dL Normal 32.0-35.0 [facility] Comment on above: Performed By: #### C BC, CMP, PAB #### [facility] [address] [place] [address] [place] Monocytes (Bld) [#/Vol] 0.4 10*3/uL Normal 0.0-0.8 [facility] Comment on above: Performed By: #### C BC, CMP, PAB #### [facility] [address] [place] [address] [place] Monocytes/100 WBC (Bld) 5.2 % Normal . [facility] Comment on above: Performed By: #### C BC, CMP, PAB #### [facility] [address] [place] [address] [place] Neutrophils (Bld) [#/Vol] 3.7 10*3/uL Normal 1.8-7.7 [facility] Comment on above: Performed By: #### C BC, CMP, PAB #### [facility] [address] Neutrophils/100 WBC (Bld) 50.6 % Normal . [facility] Comment on above: Performed By: #### C BC, CMP, PAB #### [facility] [address] Nucleated RBC/100 WBC (Bld) [Ratio] 0.0 % Normal 0-0.5 [facility] Comment on above: Performed By: #### C BC, CMP, PAB #### [facility] [address] Platelet mean volume (Bld) [Entitic vol] 7.6 fL Normal 6.3-10.7 [facility] Comment on above: Performed By: #### C BC, CMP, PAB #### [facility] [address] Platelets (Bld) [#/Vol] 252 10*3/uL Normal 150-450 [facility] Comment on above: Performed By: #### C BC, CMP, PAB #### [facility] [address] [place] [address] [place] RBC (Bld) [#/Vol] 4.22 10*6/uL Normal 3.60-5.00 [facility] Comment on above: Performed By: #### C BC, CMP, PAB #### [facility] [address] [place] [address] [place] WBC (Bld) [#/Vol] 7.2 10*3/uL Normal 4.5-11.0 [facility] Comment on above: Performed By: #### C BC, CMP, PAB #### [facility] [address] [place] [address] [place] Ammoniaon 11-11-2021 Ammonia (P) [Moles/Vol] 26 umol/L Normal 11-35 [facility] Comment on above: Result Comment: PERF ORMED BY: [place] [address] PATHOLOGIST [facility] [employer] HUY COX M.D. Performed By: #### C BC, CMP, PAB #### [address] Hepatic Panelon 11-11-2021 Albumin [Mass/Vol] 3.0 g/dL Low 3.2-5.5 [facility] Comment on above: Performed By: #### C BC, CMP, PAB #### [address] Albumin/Globulin [Mass ratio] 1.0 {ratio} Normal [facility] Comment on above: Performed By: #### C BC, CMP, PAB #### [address] ALP [Catalytic activity/Vol] 187 U/L High 32-92 [facility] Comment on above: Result Comment: PERF ORMED BY: [place] [address] PATHOLOGIST [facility] HUY COX M.D. Performed By: #### C BC, CMP, PAB #### [address] ALT [Catalytic activity/Vol] 54 U/L Normal 10-60 [facility] Comment on above: Performed By: #### C BC, CMP, PAB #### [address] AST [Catalytic activity/Vol] 39 U/L Normal 10-42 [facility] Comment on above: Performed By: #### C BC, CMP, PAB #### [address] Bilirubin [Mass/Vol] 0.3 mg/dL Normal 0.3-1.2 [facility] Comment on above: Performed By: #### C BC, CMP, PAB #### [facility] [address] [place] [address] Bilirubin,Indirect Not performed Normal [facility] Comment on above: Performed By: #### C BC, CMP, PAB #### [facility] [address] Bilirubin.indirect [Mass/Vol] mg/dL Normal 0.0-0.4 [facility] Comment on above: Performed By: #### C BC, CMP, PAB #### [facility] [address] [place] [address] Globulin (S) [Mass/Vol] 3.0 g/dL Normal [facility] Comment on above: Performed By: #### C BC, CMP, PAB #### [address] Protein [Mass/Vol] 6.0 g/dL Low 6.1-7.9 [facility] Comment on above: Performed By: #### C BC, CMP, PAB #### [address] Hepatitis Acute Panelon 03-0 HBsAg Screen Negative Normal Negative [facility] Comment on above: Performed By: #### C BC, CMP, PAB #### [address] Hepatitis A Antibody IgM Negative Normal Negative [facility] Comment on above: Performed By: #### C BC, CMP, PAB #### [facility] [address] [place] [address] Hepatitis B Core Antibody IgM Negative Normal Negative [facility] Comment on above: Performed By: #### C BC, CMP, PAB #### [facility] [address] [place] [address] Hepatitis C Virus Antibody 0.2 Normal 0.0-0.9 [facility] Comment on above: Performed By: #### C BC, CMP, PAB #### [facility] [address] [place] [address] Interpretation Hepatitis C Normal . [facility] Comment on above: Result Comment: Dov chun Not infected with HCV, unless recent infection is suspected or other evidence exists to indicate HCV infection. Performed at: - [facility] [address] [id number] [employer]: Pedro Luis José PhD, Phone: [phone] PERFORMED BY: [place] [address] PATHOLOGIST [facility] HUY COX M.D. Performed By: #### C BC, CMP, PAB #### [address] US liveron 11-11-2021 liver [facility] [address] [place] [address] Ultrasound Report Signed Patient: Morales Lee MR#: [id number] : 1975 Acct:[id number] Age/Sex: 46 / F ADM Date: 10/29/21 Loc: Room: [address] [place] [address] Type: ADM IN Attending Dr: Richard Acevedo [...] Alexandru Pond M.D.11/11/2021 10:23 AM Dictation Location: [place] [address] Tech: Ermelinda Diaz Transcribed By: CORTNEY 11/11/21 1023 Dictated By: Alexandru Pond DO 11/11/21 1018 Signed By: 11/11/21 1023 Normal [facility] Complete Blood Count Auto Di ffon 11-10-2021 Basophils (Bld) [#/Vol] 0.1 10*3/uL Normal 0.0-0.2 [facility] Comment on above: Result Comment: PERF ORMED BY: [place] [address] PATHOLOGIST [facility] HUY COX M.D. Performed By: #### C BC #### [address] Basophils/100 WBC (Bld) 1.2 % Normal . [facility] Comment on above: Performed By: #### C BC #### [address] Eosinophils (Bld) [#/Vol] 0.3 10*3/uL Normal 0.0-0.45 [facility] Comment on above: Performed By: #### C BC #### [address] Eosinophils/100 WBC (Bld) 5.9 % Normal . [facility] Comment on above: Performed By: #### C BC #### [address] Erythrocyte distribution width (RBC) [Ratio] 14.2 % Normal 11.9-15.3 [facility] Comment on above: Performed By: #### C BC #### [address] Hematocrit (Bld) [Volume fraction] 37.1 % Normal 34.0-46.4 [facility] Comment on above: Performed By: #### C BC #### [address] Hemoglobin (Bld) [Mass/Vol] 12.3 g/dL Normal 11.8-15.4 [facility] Comment on above: Performed By: #### C BC #### [address] Lymphocytes (Bld) [#/Vol] 2.0 10*3/uL Normal 1.00-4.8 [facility] Comment on above: Performed By: #### C BC #### [address] Lymphocytes/100 WBC (Bld) 36.5 % Normal . [facility] Comment on above: Performed By: #### C BC #### [address] MCH (RBC) [Entitic mass] 28.6 pg Normal 24.7-34.3 [facility] Comment on above: Performed By: #### C BC #### [address] MCV (RBC) [Entitic vol] 86.5 fL Normal 80-100 [facility] Comment on above: Performed By: #### C BC #### [address] Mean Corpuscular HGB Conc 33.1 g/dL Normal 32.0-35.0 [facility] Comment on above: Performed By: #### C BC #### [address] Monocytes (Bld) [#/Vol] 0.3 10*3/uL Normal 0.0-0.8 [facility] Comment on above: Performed By: #### C BC #### [address] Monocytes/100 WBC (Bld) 5.3 % Normal . [facility] Comment on above: Performed By: #### C BC #### [place] [address] [place] Neutrophils (Bld) [#/Vol] 2.8 10*3/uL Normal 1.8-7.7 [facility] Comment on above: Performed By: #### C BC #### [place] [address] [place] Neutrophils/100 WBC (Bld) 51.1 % Normal . [facility] Comment on above: Performed By: #### C BC #### [address] Nucleated RBC/100 WBC (Bld) [Ratio] 0.1 % Normal 0-0.5 [facility] Comment on above: Performed By: #### C BC #### [address] Platelet mean volume (Bld) [Entitic vol] 7.8 fL Normal 6.3-10.7 [facility] Comment on above: Performed By: #### C BC #### [address] Platelets (Bld) [#/Vol] 214 10*3/uL Normal 150-450 [facility] Comment on above: Performed By: #### C BC #### [address] RBC (Bld) [#/Vol] 4.28 10*6/uL Normal 3.60-5.00 [facility] Comment on above: Performed By: #### C BC #### [address] WBC (Bld) [#/Vol] 5.4 10*3/uL Normal 4.5-11.0 [facility] Comment on above: Performed By: #### C BC #### [address] Comprehensive Metabolic Pane shree 11-10-2021 Albumin [Mass/Vol] 2.9 g/dL Low 3.2-5.5 [facility] Comment on above: Performed By: #### C BC, CMP, PAB #### [address] Albumin/Globulin [Mass ratio] 0.9 {ratio} Normal [facility] Comment on above: Performed By: #### C BC, CMP, PAB #### [address] ALP [Catalytic activity/Vol] 201 U/L High 32-92 [facility] Comment on above: Performed By: #### C BC CMP, PAB #### [facility] [address] ALT [Catalytic activity/Vol] 67 U/L High 10-60 [facility] Comment on above: Performed By: #### C BC, CMP, PAB #### [facility] [address] AST [Catalytic activity/Vol] 66 U/L High 10-42 [facility] Comment on above: Performed By: #### C BC, CMP, PAB #### [facility] [address] Bilirubin [Mass/Vol] 0.4 mg/dL Normal 0.3-1.2 [facility] Comment on above: Performed By: #### C BC, CMP, PAB #### [facility] [address] Calcium [Mass/Vol] 8.7 mg/dL Normal 8.2-10.2 [facility] Comment on above: Performed By: #### C BC CMP, PAB #### [facility] [address] Chloride [Moles/Vol] 100 mmol/L Normal 95-114 [facility] Comment on above: Performed By: #### C BC, CMP, PAB #### [facility] [address] CO2 [Moles/Vol] 26.4 mmol/L Normal 22.0-30.0 [facility] Comment on above: Performed By: #### C BC, CMP, PAB #### [facility] [address] [place] [address] [place] Creatinine [Mass/Vol] 0.50 mg/dL Normal 0.44-1.03 [facility] Comment on above: Performed By: #### C BC, CMP, PAB #### [facility] [address] [place] [address] [place] Creatinine Clr Calc Pharmacy 142.11 Normal [facility] Comment on above: Result Comment: PERF ORMED BY: [place] [address] PATHOLOGIST [facility] HUY COX M.D. Performed By: #### C BC, CMP, PAB #### [address] Estimated GFR ( July > 60 [facility] Comment on above: Result Comment: GFR estimated reference range: According to KDOQI guidelines, <60 ml/min/1.73m2 is sufficient to diagnose a patient with chronic kidney disease. Performed By: #### C BC, CMP, PAB #### [address] Estimated GFR (Non- Am > 60 [facility] Comment on above: Performed By: #### C BC, CMP, PAB #### [address] Globulin (S) [Mass/Vol] 3.1 g/dL Normal [facility] Comment on above: Performed By: #### C BC, CMP, PAB #### [address] Glucose [Mass/Vol] 110 mg/dL High 70-100 [facility] Comment on above: Result Comment: [place] Glucose Reference Range is dependent on time and content of last meal. Glucose of more than 200 mg/dL in a nonstressed, ambulatory subject supports the diagnosis of Diabetes Mellitus. ADA recommended reference range Performed By: #### C BC, CMP, PAB #### [address] Potassium [Moles/Vol] 4.0 mmol/L Normal 3.5-5.1 [facility] Comment on above: Performed By: #### C BC, CMP, PAB #### [address] Protein [Mass/Vol] 6.0 g/dL Low 6.1-7.9 [facility] Comment on above: Performed By: #### C BC, CMP, PAB #### [facility] [address] [place] [id number] [place] Sodium [Moles/Vol] 136 mmol/L Normal 136-146 [facility] Comment on above: Performed By: #### C BC, CMP, PAB #### [facility] [address] [place] [id number] [place] Urea nitrogen [Mass/Vol] 8 mg/dL Low 9-23 [facility] Comment on above: Performed By: #### C BC, CMP, PAB #### [facility] [address] [place] [address] [place] Dipstick and Microscopicon 0 11-10-2021 Appearance (U) Turbid Critically abnormal Clear [facility] Comment on above: Order Comment: Name Collection Type:: Alvares Catheter Performed By: #### C BC, CMP, PAB #### [facility] [address] [place] [address] [place] Bacteria,Urine 3+ High None Seen [facility] Comment on above: Order Comment: Name Collection Type:: Alvares Catheter Performed By: #### C BC, CMP, PAB #### [facility] [address] [place] [address] [place] Bilirubin,Urine Negative Normal Negative [facility] Comment on above: Order Comment: Name Collection Type:: Alvares Catheter Performed By: #### C BC, CMP, PAB #### [facility] [address] [place] [id number] [place] Color (U) Yellow Normal Yellow [facility] Comment on above: Order Comment: Name Collection Type:: Alvares Catheter Performed By: #### C BC, CMP, PAB #### [facility] [address] [place] [id number] [place] Glucose Ql (U) Normal Normal Normal [facility] Comment on above: Order Comment: Name Collection Type:: Alvares Catheter Performed By: #### C BC, CMP, PAB #### [facility] [address] [place] [id number] [place] Hyaline Casts,Urine None Seen Normal 0-1 [facility] Comment on above: Order Comment: Name Collection Type:: Alvares Catheter Performed By: #### C BC, CMP, PAB #### [facility] [address] [place] [address] [place] Ketones Ql (U) Negative Normal Negative [facility] Comment on above: Order Comment: Name Collection Type:: Alvares Catheter Performed By: #### C BC, CMP, PAB #### [facility] [address] [place] [address] Leukocyte esterase Test strip Ql (U) 3+ High Negative [facility] Comment on above: Order Comment: Name Collection Type:: Alvares Catheter Performed By: #### C BC, CMP, PAB #### [address] Nitrite,Urine Positive High Negative [facility] Comment on above: Order Comment: Name Collection Type:: Alvares Catheter Performed By: #### C BC, CMP, PAB #### [address] Occult Blood,Urine 2+ High Negative [facility] Comment on above: Order Comment: Name Collection Type:: Alvares Catheter Result Comment: PERF ORMED BY: [place] [address] PATHOLOGIST [facility] [employer]IST HUY COX M.D. Performed By: #### C BC, CMP, PAB #### [address] Other Casts,Urine None Seen Normal None Seen [facility] Comment on above: Order Comment: Name Collection Type:: Alvares Catheter Result Comment: PERF ORMED BY: [place] [address] PATHOLOGIST [facility]IST HUY COX M.D. Performed By: #### C BC, CMP, PAB #### [facility] [address] [place] [address] [place] pH (U) 8.5 [pH] Normal 5.0-9.0 [facility] Comment on above: Order Comment: Name Collection Type:: Alvares Catheter Performed By: #### C BC, CMP, PAB #### [address] [address] [place] Protein,Urine Negative Normal Negative [facility] Comment on above: Order Comment: Name Collection Type:: Alvares Catheter Performed By: #### C BC, CMP, PAB #### [facility] [address] [place] [address] RBC,Urine 1-2 Normal 0-4 [facility] Comment on above: Order Comment: Name Collection Type:: Alvares Catheter Performed By: #### C BC, CMP, PAB #### [facility] [address] [place] [address] Specificy [place],Urine 1.006 Normal 1.00 1-1.03 0 [facility] Comment on above: Order Comment: Name Collection Type:: Alvares Catheter Performed By: #### C BC, CMP, PAB #### [facility] [address] [place] [address] Squamous Epithelial Cell,Urine 3-4 High 0-2 [facility] Comment on above: Order Comment: Name Collection Type:: Alvares Catheter Performed By: #### C BC, CMP, PAB #### [facility] [address] [place] [address] Triple Phosphate Crystal,Urine 2+ Normal [facility] Comment on above: Order Comment: Name Collection Type:: Alvares Catheter Performed By: #### C BC, CMP, PAB #### [facility] [address] [place] [address] Urobilinogen,Urine Normal Normal Normal [facility] Comment on above: Order Comment: Name Collection Type:: Alvares Catheter Performed By: #### C BC, CMP, PAB #### [facility] [address] [place] [address] [place] WBC,Urine 20-49 High 0-4 [facility] Comment on above: Order Comment: Name Collection Type:: Alvares Catheter Performed By: #### C BC, CMP, PAB #### [facility] [address] [place] [address] [place] Urine Cultureon 11-10-2021 Bacteria identified Cx Nom (U) ORGANISM: Providencia rettgeri (O:PRORET) [place] Count >100,000 Aerobic JOSE Charge (NUC86) SUSCEPTIBILITY [...] RESISTANT TO ALL B-LACTAM DRUGS. PERFORMED BY: [place] [address] PATHOLOGIST [facility] [employer]IST HUY COX M.D. [facility] Comment on above: Performed By: #### C BC, CMP, PAB #### [address] Basic Metabolic Panelon 03-0 Calcium [Mass/Vol] 8.7 mg/dL Normal 8.2-10.2 [facility] Comment on above: Performed By: #### B MP, CBC #### [address] Chloride [Moles/Vol] 102 mmol/L Normal 95-114 [facility] Comment on above: Performed By: #### B MP, CBC #### [address] CO2 [Moles/Vol] 25.5 mmol/L Normal 22.0-30.0 [facility] Comment on above: Performed By: #### B MP, CBC #### [address] Creatinine [Mass/Vol] 0.71 mg/dL Normal 0.44-1.03 [facility] Comment on above: Performed By: #### B MP, CBC #### [address] Creatinine Clr Calc Pharmacy 100.08 [facility] Comment on above: Result Comment: PERF ORMED BY: [place] [address] PATHOLOGIST [facility] [employer]IST HUY COX M.D. Performed By: #### B MP, CBC #### [address] Estimated GFR ( July > 60 [facility] Comment on above: Result Comment: GFR estimated reference range: According to KDOQI guidelines, <60 ml/min/1.73m2 is sufficient to diagnose a patient with chronic kidney disease. Performed By: #### B MP, CBC #### [address] Estimated GFR (Non- Am > 60 [facility] Comment on above: Performed By: #### B MP, CBC #### [address] Glucose [Mass/Vol] 104 mg/dL High 70-100 [facility] Comment on above: Result Comment: [place] Glucose Reference Range is dependent on time and content of last meal. Glucose of more than 200 mg/dL in a nonstressed, ambulatory subject supports the diagnosis of Diabetes Mellitus. ADA recommended reference range Performed By: #### B MP, CBC #### [address] Potassium [Moles/Vol] 4.1 mmol/L Normal 3.5-5.1 [facility] Comment on above: Performed By: #### B MP, CBC #### [facility] [address] Sodium [Moles/Vol] 137 mmol/L Normal 136-146 [facility] Comment on above: Performed By: #### B MP, CBC #### [facility] [address] Urea nitrogen [Mass/Vol] 10 mg/dL Normal 9-23 [facility] Comment on above: Performed By: #### B MP, CBC #### [address] Complete Blood Count Auto Di ffon 11-06-2021 Basophils (Bld) [#/Vol] 0.1 10*3/uL Normal 0.0-0.2 [facility] Comment on above: Result Comment: PERF ORMED BY: [place] [address] PATHOLOGIST [facility]IST HUY COX M.D. Performed By: #### B MP, CBC #### [address] Basophils/100 WBC (Bld) 0.8 % Normal . [facility] Comment on above: Performed By: #### B MP, CBC #### [address] Eosinophils (Bld) [#/Vol] 0.4 10*3/uL Normal 0.0-0.45 [facility] Comment on above: Performed By: #### B MP, CBC #### [address] Eosinophils/100 WBC (Bld) 5.5 % Normal . [facility] Comment on above: Performed By: #### B MP, CBC #### [address] Erythrocyte distribution width (RBC) [Ratio] 14.2 % Normal 11.9-15.3 [facility] Comment on above: Performed By: #### B MP, CBC #### [address] Hematocrit (Bld) [Volume fraction] 36.0 % Normal 34.0-46.4 [facility] Comment on above: Performed By: #### B MP, CBC #### [address] Hemoglobin (Bld) [Mass/Vol] 12.0 g/dL Normal 11.8-15.4 [facility] Comment on above: Performed By: #### B MP, CBC #### [address] Lymphocytes (Bld) [#/Vol] 2.4 10*3/uL Normal 1.00-4.8 [facility] Comment on above: Performed By: #### B MP, CBC #### [address] Lymphocytes/100 WBC (Bld) 35.2 % Normal . [facility] Comment on above: Performed By: #### B MP, CBC #### [address] MCH (RBC) [Entitic mass] 28.9 pg Normal 24.7-34.3 [facility] Comment on above: Performed By: #### B MP, CBC #### [address] MCV (RBC) [Entitic vol] 86.4 fL Normal 80-100 [facility] Comment on above: Performed By: #### B MP, CBC #### [address] Mean Corpuscular HGB Conc 33.4 g/dL Normal 32.0-35.0 [facility] Comment on above: Performed By: #### B MP, CBC #### [address] Monocytes (Bld) [#/Vol] 0.3 10*3/uL Normal 0.0-0.8 [facility] Comment on above: Performed By: #### B MP, CBC #### [place] [address] [place] Monocytes/100 WBC (Bld) 4.8 % Normal . [facility] Comment on above: Performed By: #### B MP, CBC #### [facility] [address] [place] [address] [place] Neutrophils (Bld) [#/Vol] 3.7 10*3/uL Normal 1.8-7.7 [facility] Comment on above: Performed By: #### B MP, CBC #### [facility] [address] Neutrophils/100 WBC (Bld) 53.7 % Normal . [facility] Comment on above: Performed By: #### B MP, CBC #### [facility] [address] Nucleated RBC/100 WBC (Bld) [Ratio] 0.0 % Normal 0-0.5 [facility] Comment on above: Performed By: #### B MP, CBC #### [facility] [address] Platelet mean volume (Bld) [Entitic vol] 8.2 fL Normal 6.3-10.7 [facility] Comment on above: Performed By: #### B MP, CBC #### [facility] [address] [place] [address] [place] Platelets (Bld) [#/Vol] 235 10*3/uL Normal 150-450 [facility] Comment on above: Performed By: #### B MP, CBC #### [facility] [address] [place] [address] [place] RBC (Bld) [#/Vol] 4.17 10*6/uL Normal 3.60-5.00 [facility] Comment on above: Performed By: #### B MP, CBC #### [facility] [address] [place] [address] [place] WBC (Bld) [#/Vol] 6.9 10*3/uL Normal 4.5-11.0 [facility] Comment on above: Performed By: #### B MP, CBC #### [facility] [address] US venous duplex LE BIon US venous duplex LE BI [facility] [place] [address] [place] [address] Ultrasound Report Signed Patient: Morales Lee MR#: [id number] : 1975 Acct:[id number] Age/Sex: 46 / F ADM Date: 10/29/21 Loc: Room: [address] [place] [address] Type: ADM IN Attending Dr: Richard Acevedo [...] Carlos Neal MD11/04/2021 11:36 AM Dictation Location: [place] [address] Tech: Natalia Rivas Transcribed By: CORTNEY 11/04/21 1136 Dictated By: Juan Carlos Neal MD 11/04/21 1135 Signed By: 11/04/21 1136 Normal [facility] Complete Blood Count Auto Di ffon 10-30-2021 Basophils (Bld) [#/Vol] 0.0 10*3/uL Normal 0.0-0.2 [facility] Comment on above: Result Comment: PERF ORMED BY: [place] [address] PATHOLOGIST [facility]IST HUY COX M.D. Performed By: #### C BC, CMP, PAB #### [address] Basophils/100 WBC (Bld) 0.6 % Normal . [facility] Comment on above: Performed By: #### C BC, CMP, PAB #### [facility] [address] Eosinophils (Bld) [#/Vol] 0.4 10*3/uL Normal 0.0-0.45 [facility] Comment on above: Performed By: #### C BC, CMP, PAB #### [facility] [address] [place] [address] [place] Eosinophils/100 WBC (Bld) 4.9 % Normal . [facility] Comment on above: Performed By: #### C BC, CMP, PAB #### [facility] [address] Erythrocyte distribution width (RBC) [Ratio] 14.3 % Normal 11.9-15.3 [facility] Comment on above: Performed By: #### C BC, CMP, PAB #### [address] Hematocrit (Bld) [Volume fraction] 36.1 % Normal 34.0-46.4 [facility] Comment on above: Performed By: #### C BC, CMP, PAB #### [address] Hemoglobin (Bld) [Mass/Vol] 12.1 g/dL Normal 11.8-15.4 [facility] Comment on above: Performed By: #### C BC, CMP, PAB #### [place] [address] [place] Lymphocytes (Bld) [#/Vol] 2.8 10*3/uL Normal 1.00-4.8 [facility] Comment on above: Performed By: #### C BC, CMP, PAB #### [place] [address] [place] Lymphocytes/100 WBC (Bld) 39.0 % Normal . [facility] Comment on above: Performed By: #### C BC, CMP, PAB #### [address] MCH (RBC) [Entitic mass] 28.7 pg Normal 24.7-34.3 [facility] Comment on above: Performed By: #### C BC, CMP, PAB #### [facility] [address] MCV (RBC) [Entitic vol] 85.7 fL Normal 80-100 [facility] Comment on above: Performed By: #### C BC, CMP, PAB #### [facility] [address] Mean Corpuscular HGB Conc 33.4 g/dL Normal 32.0-35.0 [facility] Comment on above: Performed By: #### C BC, CMP, PAB #### [address] Monocytes (Bld) [#/Vol] 0.4 10*3/uL Normal 0.0-0.8 [facility] Comment on above: Performed By: #### C BC, CMP, PAB #### [address] Monocytes/100 WBC (Bld) 5.2 % Normal . [facility] Comment on above: Performed By: #### C BC, CMP, PAB #### [address] Neutrophils (Bld) [#/Vol] 3.6 10*3/uL Normal 1.8-7.7 [facility] Comment on above: Performed By: #### C BC, CMP, PAB #### [place] [address] [place] Neutrophils/100 WBC (Bld) 50.3 % Normal . [facility] Comment on above: Performed By: #### C BC, CMP, PAB #### [place] [address] [place] Nucleated RBC/100 WBC (Bld) [Ratio] 0.0 % Normal 0-0.5 [facility] Comment on above: Performed By: #### C BC, CMP, PAB #### [place] [address] [place] Platelet mean volume (Bld) [Entitic vol] 8.1 fL Normal 6.3-10.7 [facility] Comment on above: Performed By: #### C BC, CMP, PAB #### [facility] [address] Platelets (Bld) [#/Vol] 261 10*3/uL Normal 150-450 [facility] Comment on above: Performed By: #### C BC, CMP, PAB #### [address] RBC (Bld) [#/Vol] 4.22 10*6/uL Normal 3.60-5.00 [facility] Comment on above: Performed By: #### C BC, CMP, PAB #### [address] WBC (Bld) [#/Vol] 7.2 10*3/uL Normal 4.5-11.0 [facility] Comment on above: Performed By: #### C BC, CMP, PAB #### [address] Comprehensive Metabolic Pane shree 10-30-2021 Albumin [Mass/Vol] 2.8 g/dL Low 3.2-5.5 [facility] Comment on above: Performed By: #### C BC, CMP, PAB #### [address] Albumin/Globulin [Mass ratio] 1.0 {ratio} Normal [facility] Comment on above: Performed By: #### C BC, CMP, PAB #### [address] ALP [Catalytic activity/Vol] 116 U/L High 32-92 [facility] Comment on above: Performed By: #### C BC, CMP, PAB #### [address] ALT [Catalytic activity/Vol] 20 U/L Normal 10-60 [facility] Comment on above: Performed By: #### C BC, CMP, PAB #### [facility] [address] [place] [id number] [facility] AST [Catalytic activity/Vol] 22 U/L Normal 10-42 [facility] Comment on above: Performed By: #### C BC CMP, PAB #### [facility] [address] [place] [id number] [facility] Bilirubin [Mass/Vol] 0.5 mg/dL Normal 0.3-1.2 [facility] Comment on above: Performed By: #### C BC CMP, PAB #### [facility] [address] Calcium [Mass/Vol] 8.7 mg/dL Normal 8.2-10.2 [facility] Comment on above: Performed By: #### C JORGE CMP, PAB #### [facility] [address] Chloride [Moles/Vol] 105 mmol/L Normal 95-114 [facility] Comment on above: Performed By: #### C BC CMP, PAB #### [facility] [address] [place] [address] [place] CO2 [Moles/Vol] 26.8 mmol/L Normal 22.0-30.0 [facility] Comment on above: Performed By: #### C JORGE CMP, PAB #### [facility] [address] [place] [id number] [place] Creatinine [Mass/Vol] 0.51 mg/dL Normal 0.44-1.03 [facility] Comment on above: Performed By: #### C BC CMP, PAB #### [facility] [address] [place] [id number] [place] Creatinine Clr Calc Pharmacy 123.73 [facility] Comment on above: Performed By: #### C BC CMP, PAB #### [facility] [address] [place] [address] [place] Estimated GFR ( July > 60 Normal [facility] Comment on above: Result Comment: GFR estimated reference range: According to KDOQI guidelines, <60 ml/min/1.73m2 is sufficient to diagnose a patient with chronic kidney disease. Performed By: #### C BC CMP, PAB #### [facility] [address] Estimated GFR (Non- Am > 60 Normal [facility] Comment on above: Performed By: #### C DARIUS PATEL, PAB #### [facility] [address] Globulin (S) [Mass/Vol] 2.8 g/dL Normal [facility] Comment on above: Performed By: #### C JORGE CMP, PAB #### [address] Glucose [Mass/Vol] 115 mg/dL High 70-100 [facility] Comment on above: Result Comment: [facility] Glucose Reference Range is dependent on time and content of last meal. Glucose of more than 200 mg/dL in a nonstressed, ambulatory subject supports the diagnosis of Diabetes Mellitus. ADA recommended reference range Performed By: #### C DARIUS PATEL, PAB #### [address] Potassium [Moles/Vol] 3.7 mmol/L Normal 3.5-5.1 [facility] Comment on above: Performed By: #### C DARIUS PATEL, PAB #### [address] Protein [Mass/Vol] 5.6 g/dL Low 6.1-7.9 [facility] Comment on above: Performed By: #### C JORGE CMP, PAB #### [address] Sodium [Moles/Vol] 140 mmol/L Normal 136-146 [facility] Comment on above: Performed By: #### C JORGE CMP, PAB #### [address] Urea nitrogen [Mass/Vol] 7 mg/dL Low 9-23 [facility] Comment on above: Performed By: #### C BC, CMP, PAB #### [place] [address] [place] Dipstick and Microscopicon 0 2-25-2022 Appearance (U) Clear Normal Clear [facility] Comment on above: Order Comment: Name Collection Type:: Voided Performed By: #### A DDONUAPLUS, CUU #### [address] Bacteria,Urine 4+ High None Seen [facility] Comment on above: Order Comment: Name Collection Type:: Voided Performed By: #### A DDONUAPLUS, CUU #### [place] [address] [place] Bilirubin,Urine Negative Normal Negative [facility] Comment on above: Order Comment: Name Collection Type:: Voided Performed By: #### A DDONUAPLUS, CUU #### [address] Color (U) Yellow Normal Yellow [facility] Comment on above: Order Comment: Name Collection Type:: Voided Performed By: #### A DDONUAPLUS, CUU #### [address] Glucose Ql (U) Normal Normal Normal [facility] Comment on above: Order Comment: Name Collection Type:: Voided Performed By: #### A DDONUAPLUS, CUU #### [address] Hyaline Casts,Urine 0-8 Normal 0-8 [facility] Comment on above: Order Comment: Name Collection Type:: Voided Result Comment: PERF ORMED BY: [place] [address] PATHOLOGIST COMMUNITY HEALTH SPECIALIST HUY COX M.D. Performed By: #### A DDONUAPLUS, CUU #### [place] [address] [place] Ketones Ql (U) Negative Normal Negative [facility] Comment on above: Order Comment: Name Collection Type:: Voided Performed By: #### A DDONUAPLUS, CUU #### [place] [address] [place] Leukocyte esterase Test strip Ql (U) 3+ High Negative [facility] Comment on above: Order Comment: Name Collection Type:: Voided Performed By: #### A DDONUAPLUS, CUU #### [address] Nitrite,Urine Positive High Negative [facility] Comment on above: Order Comment: Name Collection Type:: Voided Performed By: #### A DDONUAPLUS, CUU #### [address] Occult Blood,Urine Negative Normal Negative [facility] Comment on above: Order Comment: Name Collection Type:: Voided Result Comment: PERF ORMED BY: [place] [address] PATHOLOGIST COMMUNITY HEALTH SPECIALIST HUY COX M.D. Performed By: #### A DDONUAPLUS, CUU #### [address] pH (U) 5.5 [pH] Normal 5.0-9.0 [facility] Comment on above: Order Comment: Name Collection Type:: Voided Performed By: #### A DDONUAPLUS, CUU #### [address] Protein,Urine Negative Normal Negative [facility] Comment on above: Order Comment: Name Collection Type:: Voided Performed By: #### A DDONUAPLUS, CUU #### [place] [address] [place] RBC LM.HPF (Urine sed) [#/Area] 0 /[HPF] Normal 0-4 [facility] Comment on above: Order Comment: Name Collection Type:: Voided Performed By: #### A DDONUAPLUS, CUU #### [place] [address] [place] Specificy [place],Urine 1.012 Normal 1.00 1-1.03 0 [facility] Comment on above: Order Comment: Name Collection Type:: Voided Performed By: #### A DDONUAPLUS, CUU #### [facility] [address] [place] [address] Squamous Epithelial Cell,Urine 0-1 Normal 0-2 [facility] Comment on above: Order Comment: Name Collection Type:: Voided Performed By: #### A DDONUAPLUS, CUU #### [address] Urobilinogen,Urine Normal Normal Normal [facility] Comment on above: Order Comment: Name Collection Type:: Voided Performed By: #### A DDONUAPLUS, CUU #### [address] WBC,Urine 20-49 High 0-4 [facility] Comment on above: Order Comment: Name Collection Type:: Voided Performed By: #### A DDONUAPLUS, CUU #### [address] Prealbuminon 10-30-2021 Prealbumin [Mass/Vol] 13.1 mg/dL Low 18.0-38.0 [facility] Comment on above: Result Comment: PERF ORMED BY: [place] [address] PATHOLOGIST COMMUNITY HEALTH SPECIALIST HUY COX M.D. Performed By: #### C BC, CMP, PAB #### [address] Urine Cultureon 10-30-2021 Bacteria identified Cx Nom (U) ORGANISM: Escherichia coli (O:ESCCOL) Saxton Count >100,000 Aerobic JOSE Charge (NUC86) SUSCEPTIBILITY [...] RESISTANT TO ALL B-LACTAM DRUGS. PERFORMED BY: [place] [address] PATHOLOGIST COMMUNITY HEALTH SPECIALIST HUY COX M.D. Normal [facility] Comment on above: Performed By: #### A DDCHANTEUAKRIS, RUBIU #### [address] COVID-19 FRon 10-29-2021 SARS-CoV-2 (COVID-19) RNA ADRIÁN+probe Ql (Unsp spec) Negative Normal Negative [facility] Comment on above: Order Comment: Healt hcare Worker?: N Result Comment: Testing for SARS-CoV-2 by RT-PCR This test was developed and its performance characteristics determined by [employer] and validated at the [facility]. This test has not been FDA cleared [...] is terminated or revoked sooner. PERFORMED BY: [facility] [address] [place] [address] PATHOLOGIST COMMUNITY HEALTH SPECIALIST HUY COX M.D. Performed By: #### C OVID 19 [facility] #### [facility] [address] Clinical Event Note-Need for Hospital Bedon [...] of the lumbar region. Provider/Team Contact Info-Pager [phone] Electronic Signatures: Sharmin Guaman (CHIEF DEVELOPMENT OFFICER-WHITING CAN WORKER) (Signed 02-Oct-2021 15:19) Authored: Clinical Event Note Last Updated: 02-Oct-2021 15:19 by Sharmin Guaman (CHIEF DEVELOPMENT OFFICER-WHITING CAN WORKER) [facility] Clinical Event Note-Need for wheel Chairon 10-02-2021 [...] home, can self propel or has a child care lead teacher to provide assistance. Provider/Team Contact Info-Pager [phone] Electronic Signatures: Sharmin Guaman (CHIEF DEVELOPMENT OFFICER-WHITING CAN WORKER) (Signed 02-Oct-2021 15:27) Authored: Clinical Event Note Last Updated: 02-Oct-2021 15:27 by Sharmin Guaman (CHIEF DEVELOPMENT OFFICER-WHITING CAN WORKER) [facility] Daily Progress Note-Neurosur jinny 10-02-2021 Daily Progress Note-Neurosurgery Service: Neurosurgery Subjective Data: MORALES LEE is a 46 year old Female who is Hospital Day # 18 and POD #11 for posterior L4-L5 decompression;posterior L4-L5 arthrodesis. Objective Data: Objective Information: T PRBPSpO2 [id number]/8397% Date/Time1/28 1: 1: 1: 1: 1:28 Range(36.2C [...] 2021 10:00 pm000 Oct 01, 2021 2:00 [id number] The Intake and Output Totals for the [...] the note. I personally evaluated the patient [id number] Electronic Signatures: Kenneth Philippe (Resident)) (Signed 02-Oct-2021 06:52) Authored: Service, Subjective Data, Objective Data, Assessment and Plan, Note Completion Lex Frederick) (Signed 02-Oct-2021 15:16) Authored: Note Completion Co-Signer: Service, Subjective Data, Objective Data, Assessment and Plan, Note Completion Last Updated: 02-Oct-2021 15:16 by Lex Frederick) [facility] Clinical Event Note-Discharg e discussionon 10-01-2021 [...] duration of trip. Electronic Signatures: Ambrocio Izaguirre (CHIEF DEVELOPMENT OFFICER-WHITING CAN WORKER) (Signed 01-Oct-2021 17:11) Authored: Clinical Event Note Last Updated: 01-Oct-2021 17:11 by Ambrocio Izaguirre (CHIEF DEVELOPMENT OFFICER-WHITING CAN WORKER) [facility] Clinical Event Note-Need for hospital bedon 10-01-2021 [...] when lying flat. Electronic Signatures: Ambrocio Izaguirre (CHIEF DEVELOPMENT OFFICER-WHITING CAN WORKER) (Signed 01-Oct-2021 14:48) Authored: Clinical Event Note Last Updated: 01-Oct-2021 14:48 by Ambrocio Izaguirre (CHIEF DEVELOPMENT OFFICER-WHITING CAN WORKER) [facility] Daily Progress Note-Nuha leonidasgaurang 10-01-2021 Daily Progress Note-Neurosurgery Service: Neurosurgery Subjective Data: MORALES LEE is a 46 year old Female who is Hospital Day # 17 and POD #10 for posterior L4-L5 decompression;posterior L4-L5 arthrodesis. Objective Data: Objective Information: T PRBPSpO2 [id number]/7194% Date/Time10/01 0: 0: 0:381 0:381 0:38 Range(35.6C - 36.8C ) (64 - 96 ) (16 - 19 ) (94 - 138 )/ (59 - 83 ) (92% - 94% ) Pain reported at 09/30 9:00: 2 = Mild ---- Intake and Output ----- Mn/Dy/Year TimeIntakeOutputNet Sep 29, 2021 10:00 [id number] Sep 29, 2021 2:00 [id number] Sep 29, 2021 6:00 am000 The Intake [...] Updated: 01-Oct-2021 10:29 by Lex Frederick) [facility] Daily Progress Note-Neurosurgery This report has been cancelled. [facility] Daily Progress Note-Nuha stearns 09-30-2021 Daily Progress Note-Neurosurgery Service: Neurosurgery Subjective Data: MORALES LEE is a 46 year old Female who is Hospital Day # 15 and POD #8 for posterior L4-L5 decompression;posterior L4-L5 arthrodesis. Objective Data: Objective Information: T PRBPSpO2 Value36.12051676/7393% Date/Time09/29 16: 16: 16: 16: 16:00 Range(36C - 36.7C ) (67 - 86 ) (17 - 20 ) (94 - 153 )/ (15 - 113 ) (93% - 98% ) Pain reported at 09/29 9:56: 5 = Moderate ---- Intake and Output ----- Mn/Dy/Year TimeIntakeOutputNet Sep 29, 2021 2:00 [id number] Sep 29, 2021 6:00 am000 Sep 28, 2021 10:00 [id number] The Intake and Output Totals for the [...] the note. I personally evaluated the patient [id number] Electronic Signatures: Lex Frederick) (Signed 30-Sep-2021 11:18) Authored: Note Completion Co-Signer: Service, Subjective Data, Objective Data, Assessment and Plan, Note Completion Jaya Mosquera (Resident)) (Signed 30-Sep-2021 03:18) Authored: Service, Subjective Data, Objective Data, Assessment and Plan, Note Completion Last Updated: 30-Sep-2021 11:18 by Lex Frederick) [facility] Re[facility] Wfqj-rs-tbnbaihbp - co -tx /c OT to address multidiscipon 09-30-2021 Rehab Djmi-gu-qmnmvzyhx - co-tx /c OT to address multidiscip Rehab: Info: Disciplinephysical physical therapy assistant Mode of Treatmentphysical therapy; co-treatment; co-tx /c OT to address multidisciplinary functional needs and maximize pt's safety. Time IN12:15 Time OUT12:55 Total Treatment [id number] Patient in ... at end of sessionbed, 3 railings up; alarm off; not on at start of visit Communicated with ... at end of sessionbedside nurse Patient Effortgood Symptoms Noted During/After Treatmentfatigue Treatment Considerations/CommentsEx tensive discussion /c amongst END LATHE OPERATOR, OT, and pt regarding her current physical [...] rolling right; rolling left; scooting/bridging Roll Left Glynn (Bed Mobility)moderate assist (50% patient effort); 1 person assist; nonverbal cues (demo/gesture); verbal cues Roll Right Glynn (Bed Mobility)moderate assist (50% patient effort); 1 person assist; nonverbal cues (demo/gesture); verbal cues Scoot/Bridge Glynn (Bed Mobility)maximum assist (25% patient effort); 2 person assist; nonverbal cues (demo/gesture); verbal cues Oyuabf-jk-Het Glynn (Bed Mobility)maximum assist (25% patient effort); 2 person assist; nonverbal cues (demo/gesture); verbal cues Mho-qq-Metbfo Glynn (Bed Mobility)maximum assist (25% patient effort); 2 person assist; nonverbal cues (demo/gesture); verbal cues Assistive Device (Bed Mobility)bed rails; draw sheet Comment, Bed MobilityPt showing improvement in her ability to roll, performing 50% of AROM to achieve full rolling position. Transfer Assessment/Interventionss it to stand transfer; stand to sit transfer Comment, TransfersToday's session, OT and I utilized [employer] Stand device to assist pt into full [...] Pt repositioned back to sitting EOB. Sit-Stand Glynn (Transfers)dependent (less than 25% patient effort) Sit-Stand Assistive Device (Transfers)mechanical lift/aid Stand-Sit Glynn (Transfers)dependent (less than 25% patient effort) Stand-Sit [...] Score8 Short Term Goals: Bed Mobility: Date [id number] Bed Mobility: Glynn Level Goalminimum assist (75% patients effort) Bed Mobility: Physical Assist Level Goal1-person assist, verbal cues Bed Mobility: Time Frame for Goal2 wks Transfer: Established [id number] Transfer: Transfer Type Gukgafn-xz-hzjvy/chair-to -bed; yyd-cf-lvkfx/vrffy-pl-rje Transfer: Glynn Level Goalmoderate assist (50% patients effort) Transfer: Physical Assist Level Goal1-person assist; verbal cues Transfer: Assistive Device Goalrolling walker Transfer: Time Frame for Goal2 wks Gait: Established [id number] Gait: Glynn Level Goalmoderate assist (50% patients (more content not included)... [facility] Rehab Note-rehab director occupational therapist apy - co-tx with PT to maximizeon 09-30-2021 Rehab Note-occupational therapy - co-tx with PT to maximize Rehab: Info: Disciplineoccupational therapist Mode of Treatmentoccupational therapy; co-tx with PT to maximize pt's mobility and safety. Time IN12:15 Time OUT12:55 Total Treatment [id number] Patient in ... at end of sessionbed, [...] olling right; rolling left; scooting/bridging Roll Left Glynn (Bed Mobility)moderate assist (50% patient effort); 1 person assist; nonverbal cues (demo/gesture); verbal cues Roll Right Glynn (Bed Mobility)moderate assist (50% patient effort); 1 person assist; nonverbal cues (demo/gesture); verbal cues Scoot/Bridge Glynn (Bed Mobility)maximum assist (25% patient effort); 2 [...] lower body dressing; upper body dressing; bathing Glynn Level (Bathing)set up; verbal cues; moderate assist (50% patient effort); 1 person assist Comment (Bathing)anticipated due to impaired balance, strength, and pain. Glynn Level (Upper Body Dressing)set up; verbal cues; moderate assist (50% patient effort) Comment (Upper Body Dressing)anticipated due to impaired balance, strength, and pain. Glynn Level (Lower Body Dressing)don; socks; dependent (less than 25% patient effort) Position (Lower Body Dressing)supine Glynn Level (Grooming)modified independence Comment (Grooming)Pt observed applying Orajel to gums, able to manage packaging, cap un/screwing, and application. Glynn Level (Feeding)modified independence Comment (Feeding)Pt able to retrieve OJ cup from tray table at R side, bring to mouth, and drink appropriately. Glynn Level (Toileting)dependent (less than 25% patient effort); [...] Score15 Short Term Goals: Bed Mobility: Date [id number]-4901 Bed Mobility: Glynn Level Goalcontact guard Bed Mobility: Physical Assist Level Goalset-up, verbal cues Bed Mobility: Time Frame for Goal2 wks Transfer: Established [id number] Transfer: Transfer Type Virgbky-af-mxrnz/chair-to -bed; mxu-qa-wtdwv/mwqgh-fh-arf ; toilet Transfer: Glynn Level Goalminimum assist (75% patients effort) Transfer: Physical Assist Level Goalset-up; verbal cues; 1-person assist Transfer: Assistive Device GoalLRD Transfer: Time Frame for Goal2 wks Balance: Established [id number] Balance: Goal DetailsPt will perform ADL while reaching outside MADDIE and returning self to midline >8 minutes with set-up assist, SBA, and minimal verbal cues for safety. Enrique (more content not included)... [facility] Daily Progress Note-Neurosjudy stearns 09-29-2021 Daily Progress Note-Neurosurgery Service: Neurosurgery Subjective Data: MORALES LEE is a 46 year old Female who is Hospital Day # 14 and POD #7 for posterior L4-L5 decompression;posterior L4-L5 arthrodesis. Objective Data: Objective Information: T PRBPSpO2 [id number]/6993% Date/Time09/28 4: 8: 8: 8: 8:00 Range(36C [...] 2021 6:00 am000 Sep 27, 2021 10:00 [id number] Sep 27, 2021 2:00 [id number] The Intake and Output Totals for the last 24 hours are: IntakeOutputNet [id number] Physical Exam by System: Neurological: A&Ox3 RUE [...] the note. I personally evaluated the patient [id number] Electronic Signatures: Lex Frederick) (Signed 29-Sep-2021 09:23) Authored: Note Completion Co-Signer: Service, Subjective Data, Objective Data, Assessment and Plan, Note Completion Jaya Mosquera (Resident)) (Signed 29-Sep-2021 03:01) Authored: Service, Subjective Data, Objective Data, Assessment and Plan, Note Completion Last Updated: 29-Sep-2021 09:23 by Lex Frederick) [facility] Knqp-xo-mxwktjgwz - co -tx /c OT to address multidiscipon 09-29-2021 Rehab Bnpt-hg-qasvtynad - co-tx /c OT to address multidiscip Rehab: Info: Disciplinephysical physical therapy assistant Mode of Treatmentphysical therapy; co-treatment; co-tx /c OT to address multidisciplinary functional needs and maximize pt's safety. Time IN14:30 Time OUT15:40 Total Treatment [id number] Patient in ... at end of sessionbed, [...] to sit; sit to supine Roll Left Glynn (Bed Mobility)maximum assist (25% patient effort); 2 person assist; verbal cues; nonverbal cues (demo/gesture) Roll Right Glynn (Bed Mobility)maximum assist (25% patient effort); 2 person assist; verbal cues; nonverbal cues (demo/gesture) Scoot/Bridge Glynn (Bed Mobility)maximum assist (25% patient effort); 2 person assist; nonverbal cues (demo/gesture); verbal cues Lyjazt-wd-Hiy Glynn (Bed Mobility)maximum assist (25% patient effort); 2 person assist; nonverbal cues (demo/gesture); verbal cues Svx-bd-Fflqnx Glynn (Bed Mobility)verbal cues; nonverbal cues (demo/gesture); maximum [...] Pt repositioned back to sitting EOB. Sit-Stand Glynn (Transfers)dependent (less than 25% patient effort) Sit-Stand Assistive Device (Transfers)mechanical lift/aid Stand-Sit Glynn (Transfers)dependent (less than 25% patient effort) Stand-Sit [...] Score8 Short Term Goals: Bed Mobility: Date [id number] Bed Mobility: Glynn Level Goalminimum assist (75% patients effort) Bed Mobility: Physical Assist Level Goal1-person assist, verbal cues Bed Mobility: Time Frame for Goal2 wks Transfer: Established [id number] Transfer: Transfer Type Hyixfvd-qg-iknvg/chair-to -bed; hxd-px-gnimw/qcale-zf-qac Transfer: Glynn Level Goalmoderate assist (50% patients effort) Transfer: Physical Assist Level Goal1-person assist; verbal cues Transfer: Assistive Device Goalrolling walker Transfer: Time Frame for Goal2 wks Gait: Established [id number] Gait: Glynn Level Goalmoderate assist (50% patients effort) Gait: Physical Assist Level1-person assist; verbal cues Gait: Assistive Device Goalrolling walker Gait: Distance Goal15 feet Gait: Time Frame for Goal2 wks Balance: Established [id number]-Wmf-0254 Balance: Goal DetailsSitting EOB 20 minutes with 0-1 UE support, SBA for static sitting, CGA for dynamic. Standing 1 minute with FWW and CGA Education: Learnerpatient Topicrehab plan of care; discharge recommendations including destination and/or equipment Outcome Summary: Progress: Physical Therapyprogress towards functional goals is fair Outcome (more content not included)... [facility] Rehab Note-rehab director occupational therapist apy - co-tx with PT to maximizeon 09-29-2021 Rehab Note-occupational therapy - co-tx with PT to maximize Rehab: Info: Disciplineoccupational therapist Mode of Treatmentoccupational therapy; co-tx with PT to maximize pt's mobility and safety. Time IN14:30 Time OUT15:40 Total Treatment [id number] Patient in ... at end of sessionbed, [...] to sit; sit to supine Roll Left Glynn (Bed Mobility)maximum assist (25% patient effort); 2 person assist; verbal cues; nonverbal cues (demo/gesture); multiple rolls to adjust harness Roll Right Glynn (Bed Mobility)maximum assist (25% patient effort); 2 person assist; verbal cues; nonverbal cues (demo/gesture); multiple rolls to adjust harness Scoot/Bridge Glynn (Bed Mobility)maximum assist (25% patient effort); 2 person assist; nonverbal cues (demo/gesture); verbal cues; boost HOB Samoho-pk-Vyh Glynn (Bed Mobility)maximum assist (25% patient effort); 2 person assist; nonverbal cues (demo/gesture); verbal cues Kmc-zu-Aazact Glynn (Bed Mobility)verbal cues; nonverbal cues (demo/gesture); maximum assist (25% patient effort); 2 person assist Assistive Device (Bed Mobility)draw sheet; bed rails Transfer Assessment/Interventionss it to stand transfer; stand to sit transfer Sit-Stand Glynn (Transfers)dependent (less than 25% patient effort) Sit-Stand Assistive Device (Transfers)mechanical lift/aid; Faye Plus Stand-Sit Glynn (Transfers)dependent (less than 25% patient effort) Stand-Sit Assistive Device (Transfers)mechanical lift/aid; Faye Plus Safety Issues Impacting Function (Mobility)awareness of need for assistance; insight into deficits/self awareness Impairments Impacting Function (Mobility)endurance/activ ity tolerance; strength; balance; coordination; postural/trunk control ADL: BADL Assessment/Interventionto ileting; feeding; grooming; lower body dressing; upper body dressing; bathing Glynn Level (Bathing)set up; verbal cues; moderate assist (50% patient effort); 1 person assist Comment (Bathing)anticipated due to impaired balance, strength, and pain. Glynn Level (Upper Body Dressing)set up; verbal cues; moderate assist (50% patient effort) Comment (Upper Body Dressing)anticipated due to impaired balance, strength, and pain. Glynn Level (Lower Body Dressing)don; socks; dependent (less than 25% patient effort) Position (Lower Body Dressing)supine Glynn Level (Grooming)set up; contact guard Comment (Grooming)anticipated due to impaired balance, strength, and pain. Glynn Level (Feeding)set up; modified independence Comment (Feeding)anticipated Glynn Level (Toileting)dependent (less than 25% patient effort); purewick Impairments, BADL Safety/Performancebalance ; cognition; endurance/activity tolerance; strength; trunk/postural control Cognitive Impairments, BADL Safety/Performanceawarene ss, need for assistance; insight into deficits/self awareness; judgment; problem solving/reasoning Motor: Sitting, Static (Balance)good balance SBA Sitting, Dynamic (Balance)fair balance CGA Nfn-wc-Sbbcv (Balance)poor balance Total A via Faye Plus lift Standing, Static (Balance)poor balance Max A x1 - via Faye Plus Standing, Dynamic (Balance)unable to balance Balance ActivitiesPt sat EOB ~20 minutes throughout session primarily with SB (more content not included)... [facility] Clinical Event Note-Medical Assessmenton 09-28-2021 Clinical Event [...] oil enema alternating with tap water enema D6Etril - Bisacodyl suppository QHS Daily - Monitor [...] wound check 10/07/21 at 10:15 am, [facility] 5th floor - F/U with Dr. Frederick [...] note 45 minutes; Electronic Signatures: Concetta Shi (CHIEF DEVELOPMENT OFFICER-WHITING CAN WORKER) (Signed 28-Sep-2021 14:31) Authored: Clinical Event Note Last Updated: 28-Sep-2021 14:31 by Concetta Shi (CHIEF DEVELOPMENT OFFICER-WHITING CAN WORKER) [facility] Daily Progress Note-Gastroen terologyon 09-28-2021 Daily Progress Note-Gastroenterology Service: Gastroenterology Subjective Data: MORALES LEE is a 46 year old Female who is Hospital Day # 14 and POD #7 for posterior L4-L5 decompression;posterior L4-L5 arthrodesis. No events overnight. Had one bowel movement this am. Otherwise no complaints. Objective Data: Objective Information: T PRBPSpO2 [id number]/6993% Date/Time09/28 4: 8: 8: 8: 8:00 Range(36C [...] 2021 6:00 am000 Sep 27, 2021 10:00 [id number] Sep 27, 2021 2:00 [id number] The Intake and Output Totals for the last 24 hours are: IntakeOutputNet [id number] Physical Exam by System: Constitutional: Constitutional: A&Ox3, [...] recommend tr (more content not included)... [facility] Daily Progress Note-Nuha jinny 09-28-2021 Daily Progress Note-Neurosurgery Service: Neurosurgery Subjective Data: MORALES LEE is a 46 year old Female who is Hospital Day # 14 and POD #7 for posterior L4-L5 decompression;posterior L4-L5 arthrodesis. Objective Data: Objective Information: T PRBPSpO2 [id number]/4893% Date/Time09/28 4: 4: 4: 4: 4:00 Range(36C - 36.6C ) (72 - 87 ) (15 - 22 ) (92 - 153 )/ (48 - 113 ) (92% - 99% ) As of 27-Sep-2021 22:00:00, patient is on 2 L/min of oxygen via nasal cannula. Pain reported at 09/27 22:00: 0 = None ---- Intake and Output ----- Mn/Dy/Year TimeIntakeOutputNet Sep 26, 2021 10:00 [id number] Sep 26, 2021 2:00 [id number] The Intake and Output Totals for the last 24 hours are: IntakeOutputNet [id number] Physical Exam by System: Neurological: A&Ox3 RUE [...] the note. I personally evaluated the patient [id number] Electronic Signatures: Fidel Maciel (Resident)) (Signed 28-Sep-2021 05:47) Authored: Service, Subjective Data, Objective Data, Assessment and Plan, Note Completion Lex Frederick) (Signed 28-Sep-2021 07:32) Authored: Note Completion Co-Signer: Service, Subjective Data, Objective Data, Assessment and Plan, Note Completion Last Updated: 28-Sep-2021 07:32 by Lex Frederick) [facility] RENAL FUNCTION PANELon 09-28 Albumin [Mass/Vol] 3.1 g/dL Low 3.4 - 5.0 [facility] Comment on above: Performed By: #### R ENAL ####[id number] [place] [address] Anion gap [Moles/Vol] 17 mmol/L Normal 10 - 20 [facility] Comment on above: Performed By: #### R ENAL ####[id number] [place] [address] Calcium [Mass/Vol] 8.4 mg/dL Low 8.6 - 10.6 [facility] Comment on above: Performed By: #### R ENAL ####[id number] [place] [address] Chloride [Moles/Vol] 102 mmol/L Normal 98 - 107 [facility] Comment on above: Performed By: #### R ENAL ####[id number] [place] [address] Creatinine [Mass/Vol] 0.47 mg/dL Low 0.50 - 1.05 [facility] Comment on above: Performed By: #### R ENAL ####[id number] [place] [address] eGFR FEMALE >90 Normal >90 [facility] Comment on above: Result Comment: CALC ULATIONS OF ESTIMATED GFR ARE PERFORMED USING THE 2020 CKD-EPI STUDY REFIT EQUATION WITHOUT THE RACE VARIABLE FOR THE IDMS-TRACEABLE CREATININE METHODS. https://jasn.asnjournals.org/content//ASN.130 7276699 Performed By: #### R ENAL ####[id number] [place] [address] Glucose [Mass/Vol] 74 mg/dL Normal 74 - 99 [facility] Comment on above: Performed By: #### R ENAL ####[id number] [place] [address] HCO3 (Bld) [Moles/Vol] 27 mmol/L Normal 21 - 32 [facility] Comment on above: Performed By: #### R ENAL ####[id number] [place] [address] Phosphate [Mass/Vol] 3.4 mg/dL Normal 2.5 - 4.9 [facility] Comment on above: Result Comment: The performance characteristics of phosphorus testing in heparinized plasma have been validated by the individual laboratory site where testing is performed. Testing on heparinized plasma is not approved by the FDA; however, such approval is not necessary. Performed By: #### R ENAL ####[id number] [place] [address] Potassium [Moles/Vol] 3.7 mmol/L Normal 3.5 - 5.3 [facility] Comment on above: Performed By: #### R ENAL ####[id number] [place] [address] Sodium [Moles/Vol] 142 mmol/L Normal 136 - 145 [facility] Comment on above: Performed By: #### R ENAL ####[id number] [place] [address] Urea nitrogen [Mass/Vol] 6 mg/dL Normal 6 - 23 [facility] Comment on above: Performed By: #### R ENAL ####[id number] [place] [address] Radiologyon 09-28-2021 XR Abdomen AP Normal MG-Gastroen terology-Rosendo hernandesell 6 I Work Phone: Rehab Note-attemptedon 09-28 Rehab Note-attempted Rehab: Info: Disciplinephysical physical therapy assistant Mode of Treatmentattempted Time IN15:30 Reason Treatment Not Performedpatient/family declined treatment, not feeling well Treatment Considerations/CommentsPt declined therapy at this time 2* increased fatigue, nausea. Pt stated NO! NO! NO! upon therapists arrival, even /c increased encouragement. Will reattempt as schedule allows. Short Term Goals: Bed Mobility: Date [id number]-Igl-6712 Bed Mobility: Glynn Level Goalminimum assist (75% patients effort) Bed Mobility: Physical Assist Level Goal1-person assist, verbal cues Bed Mobility: Time Frame for Goal2 wks Transfer: Established Ylhe83-Zol-6523 Transfer: Transfer Type Tsbqntd-qv-xgtcg/chair-to -bed; ruy-xb-ndvpp/wpcyn-we-lfy Transfer: Glynn Level Goalmoderate assist (50% patients effort) Transfer: Physical Assist Level Goal1-person assist; verbal cues Transfer: Assistive Device Goalrolling walker Transfer: Time Frame for Goal2 wks Gait: Established Aajf63-Quz-2544 Gait: Glynn Level Goalmoderate assist (50% patients effort) Gait: Physical Assist Level1-person assist; verbal cues Gait: Assistive Device Goalrolling walker Gait: Distance Goal15 feet Gait: Time Frame for Goal2 wks Balance: Established Ixzr83-Eoc-5415 Balance: Goal DetailsSitting EOB 20 minutes with 0-1 UE support, SBA for static sitting, CGA for dynamic. Standing 1 minute with FWW and CGA Electronic Signatures: Yosi Campbell (END LATHE OPERATOR) (Signed 28-Sep-2021 15:32) Entered: Short Term Goals, Info Authored: Deon, Short Term Goals Boone Broussard (PT) (Signed 01-Oct-2021 09:01) Co-Signer: Short Term Goals, Info Last Updated: 01-Oct-2021 09:01 by Boone Broussard (PT) Normal [facility] Rehab Note-attempted Rehab: Info: Mode of Treatmentattempted [...] 28-Sep-2021 15:28 by Silvana Marshall (OT) Normal [facility] Renal Function Panelon 09-28 Albumin BCP dye [...] RACE VARIABLE FOR THE IDMS-TRACEABLE CREATININE METHODS.https://jasn.asnjournals.org/content/early /ASN.4184780316 TH ABDOMEN AP VIEWon 022 ABDOMEN AP VIEW Patient Name: MORALES LEE STUDY: ABDOMEN AP VIEW; 09/28/2021 1:22 pm INDICATION: Abd. dist. . COMPARISON: 09/27/2021 abdominal radiograph. ACCESSION NUMBER(S): [id number] ORDERING CLINICIAN: CONCETTA SHI FINDINGS: Two AP [...] stated. This study was interpreted at [facility], [place], [place]. 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 Has been on scheduled bowel regimen with [...] penicillin: Unknown Objective: Objective Information: T PRBPSpO2 [id number]/48549% Date/Time09/27 4: 4: 4:001 4:00 Range (76 [...] C6-7 ACDFF, (more content not included)... Normal [facility] Daily Progress Note-Neurosur jinny 09-27-2021 Daily Progress Note-Neurosurgery Service: Neurosurgery Subjective Data: MORALES LEE is a 46 year old Female who is Hospital Day # 13 and POD #6 for posterior L4-L5 decompression;posterior L4-L5 arthrodesis. Objective Data: Objective Information: T PRBPSpO2 [id number]/24020% Date/Time09/26 11:0809/27 4: 4: 4: 4:00 Range(37C [...] 2021 6:00 am000 Sep 26, 2021 10:00 [id number] Sep 26, 2021 2:00 [id number] The Intake and Output Totals for the last 24 hours are: IntakeOutputNet [id number] Physical Exam by System: Neurological: A&Ox3 RUE [...] the note. I personally evaluated the patient [id number] Electronic Signatures: Chaparro Umana (Resident)) (Signed 27-Sep-2021 06:11) Authored: Service, Subjective Data, Objective Data, Assessment and Plan, Note Completion Natalia Palacios) (Signed 08-Oct-2021 14:31) Authored: Note Completion Co-Signer: Service, Subjective Data, Objective Data, Assessment and Plan, Note Completion Last Updated: 08-Oct-2021 14:31 by Natalia Palacios) Normal [facility] MAGNESIUMon 09-27-2021 Magnesium [Mass/Vol] 1.80 mg/dL Normal 1.60 - 2.40 [facility] Comment on above: Performed By: #### C BC #### [facility] [address] [place] [address] Magnesium, Serumon Magnesium [Mass/Vol] 1.80 mg/dL See Below MG-G astroen terraiza-Rosendo moura 6 [facility] Work Phone: Comment on above: Reference Range: 1.6 0 - 2.40 RENAL FUNCTION PANELon 09-27 Albumin [Mass/Vol] 3.3 g/dL Low 3.4 - 5.0 [facility] Comment on above: Performed By: #### R ENAL #### [facility] [address] [place] [address] Anion gap [Moles/Vol] 17 mmol/L Normal 10 - 20 [facility] Comment on above: Performed By: #### R ENAL #### [facility] [address] [place] [address] Calcium [Mass/Vol] 8.5 mg/dL Low 8.6 - 10.6 [facility] Comment on above: Performed By: #### R ENAL #### [facility] [address] [place] [address] Chloride [Moles/Vol] 98 mmol/L Normal 98 - 107 [facility] Comment on above: Performed By: #### R ENAL #### [facility] [address] [place] [address] Creatinine [Mass/Vol] 0.44 mg/dL Low 0.50 - 1.05 [facility] Comment on above: Performed By: #### R ENAL #### [facility] [address] [place] [address] eGFR FEMALE >90 Normal >90 [facility] Comment on above: Result Comment: CALC ULATIONS OF ESTIMATED GFR ARE PERFORMED USING THE 2020 CKD-EPI STUDY REFIT EQUATION WITHOUT THE RACE VARIABLE FOR THE IDMS-TRACEABLE CREATININE METHODS. https://jasn.asnjournals.org/content//ASN.013 6161733 Performed By: #### R ENAL #### [facility] [address] [place] [address] Glucose [Mass/Vol] 91 mg/dL Normal 74 - 99 [facility] Comment on above: Performed By: #### R ENAL #### [facility] [address] [place] [address] HCO3 (Bld) [Moles/Vol] 26 mmol/L Normal 21 - 32 [facility] Comment on above: Performed By: #### R ENAL #### [facility] [address] [place] [address] Phosphate [Mass/Vol] 4.0 mg/dL Normal 2.5 - 4.9 [facility] Comment on above: Result Comment: The performance characteristics of phosphorus testing in heparinized plasma have been validated by the individual laboratory site where testing is performed. Testing on heparinized plasma is not approved by the FDA; however, such approval is not necessary. Performed By: #### R ENAL #### [facility] [address] [place] [address] Potassium [Moles/Vol] 4.1 mmol/L Normal 3.5 - 5.3 [facility] Comment on above: Performed By: #### R ENAL #### [facility] [address] [place] [address] Sodium [Moles/Vol] 137 mmol/L Normal 136 - 145 [facility] Comment on above: Performed By: #### R ENAL #### [facility] [address] [place] [address] Urea nitrogen [Mass/Vol] 6 mg/dL Normal 6 - 23 [facility] Comment on above: Performed By: #### R ENAL #### [facility] [address] [place] [address] Radiologyon 09-27-2021 XR Abdomen AP Normal MG-Gastroen [...] RACE VARIABLE FOR THE IDMS-TRACEABLE CREATININE METHODS.https://jasn.asnjournals.org/content/early/ /ASN.9841770601 ABDOMEN AP VIEWon 022 ABDOMEN AP VIEW Patient Name: JESUS MORALES STUDY: ABDOMEN AP VIEW; 09/27/2021 2:33 am INDICATION: vomiting, constipation . COMPARISON: None. ACCESSION NUMBER(S): [id number] ORDERING CLINICIAN: FIDEL MACIEL FINDINGS: 2 AP [...] as stated. This study was interpreted at [place], [place]. Electronically signed by: DWIGHT MOY MD [facility] Daily Progress Note-Neurosjudy stearns 09-26-2021 Daily Progress Note-Neurosurgery Service: Neurosurgery Subjective Data: MORALES ELE is a 46 year old Female who is Hospital Day # 12 and POD #5 for posterior L4-L5 decompression;posterior L4-L5 arthrodesis. Objective Data: Objective Information: T PRBPSpO2 [id number]/8299% Date/Time09/25 17: 12:001 17: 17:08 Range (68 - 98 ) (21 - 23 ) (118 - 136 )/ (69 - 82 ) (92% - 99% ) Pain reported at 09/26 3:00: sleeping ---- Intake and Output ----- Mn/Dy/Year TimeIntakeOutputNet Sep 24, 2021 10:00 [id number] Sep 24, 2021 2:00 [id number] Sep 24, 2021 6:00 [id number] The Intake and Output Totals for the last 24 hours are: IntakeOutputNet [id number] Physical Exam by System: Neurological: A&Ox3 RUE [...] the note. I personally evaluated the patient [id number] Electronic Signatures: Jaya Mosquera ( (Resident)) (Signed 26-Sep-2021 07:08) Authored: Service, Subjective Data, Objective Data, Assessment and Plan, Note Completion Natalia Palacios) (Signed 08-Oct-2021 14:10) Authored: Note Completion Co-Signer: Service, Subjective Data, Objective Data, Assessment and Plan, Note Completion Last Updated: 08-Oct-2021 14:10 by Natalia Palacios) Normal [facility] Clinical Event Note-POD 4 / Abdominal assessmenton [...] wound check 10/07/21 at 10:15 am, [facility] [place] 5th floor - F/U with Dr. Frederick [...] plan of care. Electronic Signatures: Concetta Shi (CHIEF DEVELOPMENT OFFICER-WHITING CAN WORKER) (Signed 25-Sep-2021 13:30) Authored: Clinical Event Note Last Updated: 25-Sep-2021 13:30 by Concetta Shi (CHIEF DEVELOPMENT OFFICER-WHITING CAN WORKER) Normal [facility] Daily Progress Note-Nuha stearns 09-25-2021 Daily Progress Note-Neurosurgery Service: Neurosurgery Subjective Data: MORALES LEE is a 46 year old Female who is Hospital Day # 11 and POD #4 for posterior L4-L5 decompression;posterior L4-L5 arthrodesis. Objective Data: Objective Information: T PRBPSpO2 [id number]/6799% Date/Time09/24 16: 16:: 16:00 Range (68 - 78 ) (18 - 19 ) (102 - 117 )/ (57 - 73 ) (95% - 99% ) As of 24-Sep-2021 21:40:00, patient is on 2 L/min of oxygen via nasal cannula. Pain reported at 09/24 21:40: 8 = Severe ---- Intake and Output ----- Mn/Dy[facility] Sep 23, 2021 10:00 [id number] Sep 23, 2021 6:00 [id number] The Intake and Output Totals for the last 24 hours are: [facility] [id number] Physical Exam by System: Neurological: A&Ox3 RUE [...] the note. I personally evaluated the patient [id number] Electronic Signatures: Lex Frederick) (Signed 25-Sep-2021 11:57) Authored: Note Completion Co-Signer: Service, Subjective Data, Objective Data, Assessment and Plan, Note Completion Alfredo Hendrickson (Resident)) (Signed 25-Sep-2021 05:56) Authored: Service, Subjective Data, Objective Data, Assessment and Plan, Note Completion Last Updated: 25-Sep-2021 11:57 by Lex Frederick) [facility] Rehab Mtpe-na-pafkhpljm - co -tx /c OT to address multidiscipon 09-25-2021 Rehab Gqpm-eo-wpvbbvtpd - co-tx /c OT to address multidiscip Rehab: Info: Disciplinephysical physical therapy assistant Mode of Treatmentphysical therapy; co-treatment; co-tx /c OT to address multidisciplinary functional needs and maximize pt's safety. Time IN15:05 Time OUT15:59 Total Treatment [id number] Patient in ... at end of sessionbed, [...] scooting/bridging; rolling right; rolling left Roll Left Glynn (Bed Mobility)maximum assist (25% patient effort); 2 person assist; verbal cues; nonverbal cues (demo/gesture) Roll Right Glynn (Bed Mobility)maximum assist (25% patient effort); 2 person assist; verbal cues; nonverbal cues (demo/gesture) Scoot/Bridge Glynn (Bed Mobility)maximum assist (25% patient effort); 2 person assist; nonverbal cues (demo/gesture); verbal cues [place]l Glynn (Bed Mobility)maximum assist (25% patient effort); 2 person assist; verbal cues; nonverbal cues (demo/gesture) Gzd-ab-Dmiuso Glynn (Bed Mobility)maximum assist (25% patient effort); 2 [...] unable to get to full standing. Sit-Stand Glynn (Transfers)maximum assist (25% patient effort); verbal cues; nonverbal cues (demo/gesture); 2-3 persona assist Sit-Stand Assistive Device (Transfers)walker, front-wheeled Stand-Sit Glynn (Transfers)maximum assist (25% patient effort); nonverbal cues [...] Score8 Short Term Goals: Bed Mobility: Date Qwvfkcmianj12-Sxw-5092 Bed Mobility: Glynn Level Goalminimum assist (75% patients effort) Bed Mobility: Physical Assist Level Goal1-person assist, verbal cues Bed Mobility: Time Frame for Goal2 wks Transfer: Established [id number]-Sxh-5468 Transfer: Transfer Type Cdjtsjr-uo-agogi/chair-to -bed; zia-ig-jrhuh/ztpnk-lk-wdr Transfer: Glynn Level Goalmoderate assist (50% patients effort) Transfer: Physical Assist Level Goal1-person assist; verbal cues Transfer: Assistive Device Goalrolling walker Transfer: Time Frame for Goal2 wks Gait: Established Gait: Glynn Level Goalmoderate assist (50% patients effort) Gait: [...] goals is gradual Electronic Signatures: Yosi Campbell (END LATHE OPERATOR) (Signed 25-Sep-2021 16:59) Entered: Outcome Summary, Short Term Goals, Sensory, TherEx, Outcomes Tools, Info, Mobility/Tone Authored: Short Term Goals, Outcome Summary, TherEx, Outcomes Tools, Info, Mobility/Tone, Sensory Boone Broussard (PT) (Signed 01-Oct-2021 09:01) Co-Signer: Outcome Summary, Short Term Goals, Sensory, TherEx (more content not included)... Normal [facility] Rehab Note-rehab director occupational therapist apy - Partial co-tx with PT to tue09-25-2021 Rehab Note-occupational therapy - Partial co-tx with PT to Rehab: Info: Disciplineoccupational therapist Mode of Treatmentoccupational therapy; Partial co-tx with PT to maximize pt's mobility and safety. Time IN15:03 Time OUT15:56 Total Treatment [id number] Patient in ... at end of sessionbed, [...] sit to supine; rolling right Roll Left Glynn (Bed Mobility)Pt required assist to bend BLE at knees and to initiate turn at shoulders and hips, verbal cues for grasp on bed rail, technique, direction follow, and encouragement.; set up; verbal cues; maximum assist (25% patient effort); 2 person assist Roll Right Glynn (Bed Mobility)Pt required assist to bend BLE at knees and to initiate turn at shoulders and hips, verbal cues for grasp on bed rail, technique, direction follow, and encouragement.; set up; verbal cues; maximum assist (25% patient effort); 2 person assist Scoot/Bridge Glynn (Bed Mobility)boost HOB; set up; verbal cues; maximum assist (25% patient effort); 2 person assist Laigpq-hb-Cgl Glynn (Bed Mobility)HOB elevated; set up; verbal cues; maximum assist (25% patient effort); 2 person assist Llx-fd-Kojrek Glynn (Bed Mobility)HOB elevated; set up; verbal cues; maximum assist (25% patient effort); 2 person assist Assistive Device (Bed Mobility)bed rails; draw sheet Transfer Assessment/Interventionss it to stand transfer Sit-Stand Glynn (Transfers)set up; verbal cues; maximum assist (25% patient effort); x 2-3 assist Safety Issues Impacting Function (Mobility)ability to follow commands; awareness of need for assistance; insight into deficits/self awareness; judgment; problem solving Impairments Impacting Function (Mobility)balance; cognition; endurance/activity tolerance; pain; strength; postural/trunk control ADL: BADL Assessment/Interventionto ileting; feeding; grooming; lower body dressing; upper body dressing; bathing Glynn Level (Bathing)set up; verbal cues; moderate assist (50% patient effort); 1 person assist Comment (Bathing)anticipated due to impaired balance, strength, and pain. Glynn Level (Upper Body Dressing)set up; verbal cues; moderate assist (50% patient effort) Comment (Upper Body Dressing)anticipated due to impaired balance, strength, and pain. Glynn Level (Lower Body Dressing)don; socks; dependent (less than 25% patient effort) Position (Lower Body Dressing)supine Glynn Level (Grooming)set up; contact guard Comment (Grooming)anticipated due to impaired balance, strength, and pain. Glynn Level (Feeding)set up; modified independence Comment (Feeding)anticipated Glynn Level (Toileting)dependent (less than 25% patient effort); purewick Impairments, BADL Safety/Performancebalance ; cognition; endurance/activity tolerance; strength; trunk/postural control Cognitive Impairments, BADL Safety/Performanceawarene ss, need for assistance; insight into deficits/self awareness; judgment; problem solving/reasoning Motor: Sitting, Static (Balance)good balance SBA Sitting, Dynamic (Balance)fair balance CGA Xur-mm-Ncicz (Balance)poor balance Max A x 2-3 - attempted Standing, Static (Balance)unable to balance Standing, Dynamic (Balance)unable to balance Balance ActivitiesPt sat EOB ~30 minutes with SBA/CGA for safety. Pt demonstrated good sitting balance and trunk control. Pt attempted STS transfers 3x with (more content not included)... Normal [facility] Daily Progress Note-Nuha stearns 09-24-2021 Daily Progress Note-Neurosurgery Service: Neurosurgery Subjective Data: MORALES LEE is a 46 year old Female who is Hospital Day # 10 and POD #3 for posterior L4-L5 decompression;posterior L4-L5 arthrodesis. Objective Data: Objective Information: T PRBPSpO2 [id number]/5499% Date/Time09/23 20:4809/23 20: 20: 20: 20:48 Range(35.5C - 36.1C ) (66 - 75 ) (16 - 19 ) (90 - 118 )/ (54 - 75 ) (98% - 99% ) As of 23-Sep-2021 22:43:00, patient is on 2 L/min of oxygen via nasal cannula. ---- Intake and Output ----- Mn/Dy/Year TimeIntakeOutputNet Sep 22, 2021 10:00 [id number] Sep 22, 2021 2:00 [id number] Sep 22, 2021 6:00 [id number] The Intake and Output Totals for the last 24 hours are: IntakeOutputNet [id number] Physical Exam by System: Neurological: A&Ox3 RUE [...] the note. I personally evaluated the patient [id number] Comments/ Additional Findings Doing well. Kyphotic posture and Back Pain from instability and traumatic chance fracture significantly improved as compared to preop. She developed weakness involving ankle PF/DF following religion of alignment from buckling of hypertrophic ligamentum [...] for ambulation and PT for now and mcc if the weakness fails to improve over [...] to the (more content not included)... Normal [facility] MAGNESIUMon 09-24-2021 Magnesium [Mass/Vol] 1.71 mg/dL Normal 1.60 - 2.40 [facility] Comment on above: Performed By: #### A FPA3 #### [facility] [address] [place] [address] Magnesium, Serumon Magnesium [Mass/Vol] 1.71 mg/dL See Below MG-G astroen terology-Rosendo moura 6 [facility] Work Phone: Comment on above: Reference Range: 1.6 0 - 2.40 RENAL FUNCTION PANELon 09-24 Albumin [Mass/Vol] 2.6 g/dL Low 3.4 - 5.0 [facility] Comment on above: Performed By: #### R ENAL ####[id number] [place] [address] Anion gap [Moles/Vol] 10 mmol/L Normal 10 - 20 [facility] Comment on above: Performed By: #### R ENAL ####[id number] [place] [address] Calcium [Mass/Vol] 7.7 mg/dL Low 8.6 - 10.6 [facility] Comment on above: Performed By: #### R ENAL ####[id number] [place] [address] Chloride [Moles/Vol] 108 mmol/L High 98 - 107 [facility] Comment on above: Performed By: #### R ENAL ####[id number] [place] [address] Creatinine [Mass/Vol] 0.39 mg/dL Low 0.50 - 1.05 [facility] Comment on above: Performed By: #### R ENAL ####[id number] [place] [address] eGFR FEMALE >90 Normal >90 [facility] Comment on above: Result Comment: CALC ULATIONS OF ESTIMATED GFR ARE PERFORMED USING THE 2020 CKD-EPI STUDY REFIT EQUATION WITHOUT THE RACE VARIABLE FOR THE IDMS-TRACEABLE CREATININE METHODS. https://jasn.asnjournals.org/content//ASN.852 1868644 Performed By: #### R ENAL ####[id number] [place] [address] Glucose [Mass/Vol] 92 mg/dL Normal 74 - 99 [facility] Comment on above: Performed By: #### R ENAL ####[id number] [place] [address] HCO3 (Bld) [Moles/Vol] 29 mmol/L Normal 21 - 32 [facility] Comment on above: Performed By: #### R ENAL ####[id number] [place] [address] Phosphate [Mass/Vol] 3.3 mg/dL Normal 2.5 - 4.9 [facility] Comment on above: Result Comment: The performance characteristics of phosphorus testing in heparinized plasma have been validated by the individual laboratory site where testing is performed. Testing on heparinized plasma is not approved by the FDA; however, such approval is not necessary. Performed By: #### R ENAL ####[id number] [place] [address] Potassium [Moles/Vol] 3.9 mmol/L Normal 3.5 - 5.3 [facility] Comment on above: Performed By: #### R ENAL ####[id number] [place] [address] Sodium [Moles/Vol] 143 mmol/L Normal 136 - 145 [facility] Comment on above: Performed By: #### R ENAL ####[id number] [place] [address] Urea nitrogen [Mass/Vol] 5 mg/dL Low 6 - 23 [facility] Comment on above: Performed By: #### R ENAL ####[id number] [place] [address] Rehab Note-attemptedon 09-24 Rehab Note-attempted Rehab: Info: Mode of Treatmentattempted Time IN15:00 Reason Treatment Not Performedpatient/family declined treatment; Pt declined participation in OT treatment stating she was on a very important call that she needed to take. Electronic Signatures: Silvana Marshall (OT) (Signed 24-Sep-2021 15:29) Authored: Info Last Updated: 24-Sep-2021 15:29 by Silvana Marshall (OT) Normal [facility] Rehab Note-physical therapyo n 09-24-2021 Rehab Note-physical [...] 24-Sep-2021 15:07 by Boone Broussard (PT) Normal [facility] Renal Function Panelon 09-24 Albumin BCP dye [...] RACE VARIABLE FOR THE IDMS-TRACEABLE CREATININE METHODS.https://jasn.asnjournals.org/content/early /ASN.1956988168 CBCon 09-23-2021 Erythrocyte distribution width (RBC) [Ratio] 13.1 % Normal 11.5 - 14.5 [facility] Comment on above: Performed By: #### C BC ####[id number] [place] [address] Hematocrit (Bld) [Volume fraction] 30.5 % Low 36.0 - 46.0 [facility] Comment on above: Performed By: #### C BC ####[id number] [place] [address] Hemoglobin (Bld) [Mass/Vol] 9.9 g/dL Low 12.0 - 16.0 [facility] Comment on above: Performed By: #### C BC ####[id number] [place] [address] MCHC (RBC) [Mass/Vol] 32.5 g/dL Normal 32.0 - 36.0 [facility] Comment on above: Performed By: #### C BC ####[id number] [place] [address] MCV (RBC) [Entitic vol] 92 fL Normal 80 - 100 [facility] Comment on above: Performed By: #### C BC ####[id number] [place] [address] NUCLEATED RBC 0.0 /100 WBC Normal 0.0-0.0 [facility] Comment on above: Performed By: #### C BC ####[id number] [place] [address] Platelets (Bld) [#/Vol] 244 10*3/uL Normal 150 - 450 [facility] Comment on above: Performed By: #### C BC ####[id number] [place] [address] RBC 3.33 x10E12/L Low 4.00 - 5.20 [facility] Comment on above: Performed By: #### C BC ####[id number] [place] [address] WBC (Bld) [#/Vol] 8.6 10*3/uL Normal 4.4 - 11.3 [facility] Comment on above: Performed By: #### C BC ####[id number] [place] [address] CBC AND DIFFERENTIALon 09-23 % AUTOMATED IMMATURE GRAN 0.4 % Normal 0.0 - 0.9 [facility] Comment on above: Result Comment: Jaleesa ture Granulocyte Count (IG) includes promyelocytes, myelocytes and metamyelocytes but does not include bands. Percent differential counts (%) should be interpreted in the context of the absolute cell counts (cells/L). Performed By: #### C BC #### [facility] [address] [place] [address] Basophils (Bld) [#/Vol] 0.03 10*3/uL Normal 0.00 - 0.10 [facility] Comment on above: Performed By: #### C BC #### [facility] [address] [place] [address] Basophils/100 WBC (Bld) 0.4 % Normal 0.0 - 2.0 U [facility] Comment on above: Performed By: #### C BC #### [facility] [address] [place] [address] Eosinophils (Bld) [#/Vol] 0.27 10*3/uL Normal 0.00 - 0.70 [facility] Comment on above: Performed By: #### C BC #### [facility] [address] [place] [address] Eosinophils/100 WBC (Bld) 3.6 % Normal 0.0 - 6.0 [facility] Comment on above: Performed By: #### C BC #### [facility] [address] [place] [address] Erythrocyte distribution width (RBC) [Ratio] 13.2 % Normal 11.5 - 14.5 [facility] Comment on above: Performed By: #### C BC #### [facility] [address] [place] [address] Hematocrit (Bld) [Volume fraction] 30.9 % Low 36.0 - 46.0 [facility] Comment on above: Performed By: #### C BC #### [facility] [address] [place] [address] Hemoglobin (Bld) [Mass/Vol] 10.4 g/dL Low 12.0 - 16.0 [facility] Comment on above: Performed By: #### C BC #### [facility] [address] [place] [address] Lymphocytes (Bld) [#/Vol] 2.41 10*3/uL Normal 1.20 - 4.80 [facility] Comment on above: Performed By: #### C BC #### [facility] [address] [place] [address] Lymphocytes/100 WBC (Bld) 31.9 % Normal 13.0 - 44.0 [facility] Comment on above: Performed By: #### C BC #### [facility] [address] [place] [address] MCHC (RBC) [Mass/Vol] 33.7 g/dL Normal 32.0 - 36.0 [facility] Comment on above: Performed By: #### C BC #### [facility] [address] [place] [address] MCV (RBC) [Entitic vol] 91 fL Normal 80 - 100 U [facility] Comment on above: Performed By: #### C BC #### [facility] [address] [place] [address] Monocytes (Bld) [#/Vol] 0.49 10*3/uL Normal 0.10 - 1.00 [facility] Comment on above: Performed By: #### C BC #### [facility] [address] [place] [address] Monocytes/100 WBC (Bld) 6.5 % Normal 2.0 - 10.0 U [facility] Comment on above: Performed By: #### C BC #### [facility] [address] [place] [address] Neutrophils (Bld) [#/Vol] 4.32 10*3/uL Normal 1.20 - 7.70 [facility] Comment on above: Performed By: #### C BC #### [facility] [address] [place] [address] Neutrophils/100 WBC (Bld) 57.2 % Normal 40.0 - 80.0 [facility] Comment on above: Performed By: #### C BC #### [facility] [address] [place] [address] NUCLEATED RBC 0.0 /100 WBC Normal 0.0-0.0 [facility] Comment on above: Performed By: #### C BC #### [facility] [address] [place] [address] Platelets (Bld) [#/Vol] 228 10*3/uL Normal 150 - 450 [facility] Comment on above: Performed By: #### C BC #### [facility] [address] [place] [address] RBC 3.39 x10E12/L Low 4.00 - 5.20 [facility] Comment on above: Performed By: #### C BC #### [facility] [address] [place] [address] WBC (Bld) [#/Vol] 7.6 10*3/uL Normal 4.4 - 11.3 [facility] Comment on above: Performed By: #### C BC #### [facility] [address] [place] [address] Complete Blood Count + Diffe rentialon 09-23-2021 [...] % See Below [facility]astro[facility]ology-[facility] 6 [facility] Work Phone: Comment on [...] 11.3 MG-Gas troen terology-Ros[facility] 6 [facility] Work Phone: Complete Blood Count + Differential 0.03 {x10E9/L} See Below [facility]-Gastroen terology-Rosendo [facility] 6 [facility] Work Phone: Comment on above: Reference Range: 0.0 0 - 0.10 Complete Blood Count + Differential 0.27 {x10E9/L} See Below [facility]-Gastroen terology-[facility]endo [facility] 6 [facility] Work Phone: Comment on above: Reference Range: 0.0 0 - 0.70 Complete Blood Count + Differential 0.49 {x10E9/L} See Below [facility]-Gastroen terology-[facility] 6 [facility] Work Phone: Comment on above: Reference Range: 0.1 0 - 1.00 Complete Blood Count + Differential 2.41 {x10E9/L} See Below [facility]ology[facility] 6 [facility] Work Phone: Comment on above: Reference Range: 1.2 0 - 4.80 Complete Blood Count + Differential 4.32 {x10E9/L} See Below [facility]-Gastroen terology-[facility] 6 [facility] Work Phone: Comment on above: Reference Range: 1.2 0 - 7.70 Complete Blood Count + Differential 3.6 % 0.0 - 6.0 [facility]-Gastroen terology-[facility] 6 [facility] Work Phone: Complete Blood Count + Differential 0.4 % 0.0 - 0.9 [facility]-Gastroen terology-Rosendo [place]well 6 [facility] Work Phone: Comment on [...] threshold See Below MG-Gastroen terology-Rosendo gretaell 6 [facility] Work Phone: Comment on above: Reference Range: 12. 0 - 16.0 MCHC (RBC) [Mass/Vol] 32.5 g/dL See Below [facility] Work Phone: Comment [...] [Mass/Vol] 1.68 mg/dL Normal 1.60 - 2.40 [facility] Comment on above: Performed By: #### C BC #### [facility] [address] [place] [address] Magnesium, Serumon Magnesium [Mass/Vol] 1.68 mg/dL See [...] (Advanced Practice Nurse) done by Ambrocio Izaguirre ([facility]) Discharge - Partial Reconciliation: 23-Sep-2021 13:21 by: Ambrocio Izaguirre ([facility]) Discharge - Partial Reconciliation: 24-Sep-2021 10:12 by: Ambrocio Izaguirre ([facility]) Discharge - Partial Reconciliation: 30-Sep-2021 14:12 by: Concetta Shi ([facility]) Discharge - Partial Reconciliation: 30-Sep-2021 14:14 by: Concetta Shi ([facility]) Discharge - Reconciliation: 30-Sep-2021 14:24 by: Concetta Shi ([facility]) Discharge - Reset to Incomplete: 02-Oct-2021 15:36 by: Ambrocio Izaguirre ([facility]) Discharge - Reconciliation: 02-Oct-2021 15:40 by: Ambrocio Izaguirre ([facility]) Discharge - Reset to Incomplete: 02-Oct-2021 15:57 by: Ambrocio Izaguirre ([facility]) Discharge - Reconciliation: 02-Oct-2021 15:58 by: Ambrocio Izaguirre ([facility]) Home Medications [facility]teredCH[facility] MEDICATIONS AT DISCHARGE DateReconciliation Comment/ Additional Information [...] not required (more content not included)... Normal [facility] PATH REVIEW-IMMUNOHEMATOLOGY on 09-23-2021 PATH REV-IMMUNOHEMOTOL LETA Normal [facility] Comment on above: Result Comment: By h [...] PATIENT. Performed By: #### A FPA3 #### [facility] [address] [place] [address] RENAL FUNCTION PANELon 09-23 Albumin [Mass/Vol] 2.7 g/dL Low 3.4 - 5.0 [facility] Comment on above: Performed By: #### V FPA3 #### [facility] [address] [place] [address] Anion gap [Moles/Vol] 10 mmol/L Normal 10 - 20 [facility] Comment on above: Performed By: #### V FPA3 #### [facility] [address] [place] [address] Calcium [Mass/Vol] 7.9 mg/dL Low 8.6 - 10.6 [facility] Comment on above: Performed By: #### V FPA3 #### [facility] [address] [place] [address] Chloride [Moles/Vol] 108 mmol/L High 98 - 107 [facility] Comment on above: Performed By: #### V FPA3 #### [facility] [address] [place] [address] Creatinine [Mass/Vol] 0.39 mg/dL Low 0.50 - 1.05 [facility] Comment on above: Performed By: #### V FPA3 #### [facility] [address] [place] [address] eGFR FEMALE >90 Normal >90 [facility] Comment on above: Result Comment: CALC ULATIONS OF ESTIMATED GFR ARE PERFORMED USING THE 2020 CKD-EPI STUDY REFIT EQUATION WITHOUT THE RACE VARIABLE FOR THE IDMS-TRACEABLE CREATININE METHODS. https://jasn.asnjournals.org/content/early/ASN.804 0110671 Performed By: #### V FPA3 #### [facility] [address] [place] [address] Glucose [Mass/Vol] 87 mg/dL Normal 74 - 99 [facility] Comment on above: Performed By: #### V FPA3 #### [facility] [address] [place] [address] HCO3 (Bld) [Moles/Vol] 29 mmol/L Normal 21 - 32 [facility] Comment on above: Performed By: #### V FPA3 #### [facility] [address] [place] [address] Phosphate [Mass/Vol] 2.7 mg/dL Normal 2.5 - 4.9 [facility] Comment on above: Result Comment: The performance characteristics of phosphorus testing in heparinized plasma have been validated by the individual laboratory site where testing is performed. Testing on heparinized plasma is not approved by the FDA; however, such approval is not necessary. Performed By: #### V FPA3 #### [facility] [address] [place] [address] Potassium [Moles/Vol] 3.6 mmol/L Normal 3.5 - 5.3 [facility] Comment on above: Performed By: #### V FPA3 #### [facility] [address] [place] [address] Sodium [Moles/Vol] 143 mmol/L Normal 136 - 145 [facility] Comment on above: Performed By: #### V FPA3 #### [facility] [address] [place] [address] Urea nitrogen [Mass/Vol] 9 mg/dL Normal 6 - 23 [facility] Comment on above: Performed By: #### V FPA3 #### [facility] [address] [place] [address] Rehab Note-individual therap yon 09-23-2021 Rehab Note-individual therapy Rehab: Info: Disciplinephysical therapist Mode of Treatmentphysical therapy; individual therapy Time IN14:50 Time OUT15:29 Total Treatment [id number] Patient in ... at end of sessionbed, [...] sit to supine; rolling right Roll Left Glynn (Bed Mobility)verbal cues; maximum assist (25% patient effort); 1 person assist Roll Right Glynn (Bed Mobility)maximum assist (25% patient effort); verbal cues; 1 person assist Scoot/Bridge Glynn (Bed Mobility)verbal cues; maximum assist (25% patient effort); 2 person assist; boost HOB Ooyjff-oe-Xki Glynn (Bed Mobility)verbal cues; maximum assist (25% patient effort); 1 person assist Eql-rz-Njzlod Glynn (Bed Mobility)set up; verbal cues; maximum assist (25% patient effort); 1 person assist Assistive Device (Bed Mobility)bed rails; draw sheet Transfer Assessment/Interventionss it to stand transfer; stand to sit transfer Sit-Stand Glynn (Transfers)2 person assist; moderate assist (50% patient effort) Sit-Stand Assistive Device (Transfers)B arm-in-arm assist Stand-Sit Glynn (Transfers)2 person assist; moderate assist (50% patient [...] 23-Sep-2021 15:50 by Boone Broussard (PT) Normal [facility] Renal Function Panelon 09-23 Albumin BCP dye [...] Function Panel >90 >90 [facility] 6 [facility] Work Phone: Comment on above: CALCULATIONS OF IVY MATED GFR ARE PERFORMED USING THE 2020 CKD-EPI STUDY REFIT EQUATION WITHOUT THE RACE VARIABLE FOR THE IDMS-TRACEABLE CREATININE METHODS.https://jasn.asnjournals.org/content/ /ASN.0638978993 ANTIBODY IDENT.on 09-22-2021 ANTIBODY IDENT. Anti-E Normal [facility] Comment on above: Performed By: #### V FPA3 #### [facility] [address] [place] [address] CBCon 09-22-2021 Erythrocyte distribution width (RBC) [Ratio] 13.2 % Normal 11.5 - 14.5 [facility] Comment on above: Performed By: #### V FPA3 #### [facility] [address] [place] [address] Hematocrit (Bld) [Volume fraction] 30.6 % Low 36.0 - 46.0 [facility] Comment on above: Performed By: #### V FPA3 #### [facility] [address] [place] [address] Hemoglobin (Bld) [Mass/Vol] 10.2 g/dL Low 12.0 - 16.0 [facility] Comment on above: Performed By: #### V FPA3 #### [facility] [address] [place] [address] MCHC (RBC) [Mass/Vol] 33.3 g/dL Normal 32.0 - 36.0 [facility] Comment on above: Performed By: #### V FPA3 #### [facility] [address] [place] [address] MCV (RBC) [Entitic vol] 91 fL Normal 80 - 100 [facility] Comment on above: Performed By: #### V FPA3 #### [facility] [address] [place] [address] NUCLEATED RBC 0.0 /100 WBC Normal 0.0-0.0 [facility] Comment on above: Performed By: #### V FPA3 #### [facility] [address] [place] [address] Platelets (Bld) [#/Vol] 215 10*3/uL Normal 150 - 450 [facility] Comment on above: Performed By: #### V FPA3 #### [facility] [address] [place] [address] RBC 3.37 x10E12/L Low 4.00 - 5.20 [facility] Comment on above: Performed By: #### V FPA3 #### [facility] [address] [place] [address] WBC (Bld) [#/Vol] 9.6 10*3/uL Normal 4.4 - 11.3 [facility] Comment on above: Performed By: #### V FPA3 #### [facility] [address] [place] [address] CBC AND DIFFERENTIALon 09-22 % AUTOMATED IMMATURE GRAN 0.4 % Normal 0.0 - 0.9 [facility] Comment on above: Result Comment: Jaleesa ture Granulocyte Count (IG) includes promyelocytes, myelocytes and metamyelocytes but does not include bands. Percent differential counts (%) should be interpreted in the context of the absolute cell counts (cells/L). Performed By: #### C BCDF ####[id number] [place] [address] Basophils (Bld) [#/Vol] 0.02 10*3/uL Normal 0.00 - 0.10 [facility] Comment on above: Performed By: #### C BCDF ####[id number] [place] [address] Basophils/100 WBC (Bld) 0.2 % Normal 0.0 - 2.0 [facility] Comment on above: Performed By: #### C BCDF ####[id number] [place] [address] Eosinophils (Bld) [#/Vol] 0.04 10*3/uL Normal 0.00 - 0.70 [facility] Comment on above: Performed By: #### C BCDF ####[id number] [place] [address] Eosinophils/100 WBC (Bld) 0.4 % Normal 0.0 - 6.0 [facility] Comment on above: Performed By: #### C BCDF ####[id number] [place] [address] Erythrocyte distribution width (RBC) [Ratio] 13.2 % Normal 11.5 - 14.5 [facility] Comment on above: Performed By: #### C BCDF ####[id number] [place] [address] Hematocrit (Bld) [Volume fraction] 30.6 % Low 36.0 - 46.0 [facility] Comment on above: Performed By: #### C BCDF ####[id number] [place] [address] Hemoglobin (Bld) [Mass/Vol] 10.3 g/dL Low 12.0 - 16.0 [facility] Comment on above: Performed By: #### C BCDF ####[id number] [place] [address] Lymphocytes (Bld) [#/Vol] 2.19 10*3/uL Normal 1.20 - 4.80 [facility] Comment on above: Performed By: #### C BCDF ####[id number] [place] [address] Lymphocytes/100 WBC (Bld) 19.9 % Normal 13.0 - 44.0 [facility] Comment on above: Performed By: #### C BCDF ####[id number] [place] [address] MCHC (RBC) [Mass/Vol] 33.7 g/dL Normal 32.0 - 36.0 [facility] Comment on above: Performed By: #### C BCDF ####[id number] [place] [address] MCV (RBC) [Entitic vol] 90 fL Normal 80 - 100 [facility] Comment on above: Performed By: #### C BCDF ####[id number] [place] [address] Monocytes (Bld) [#/Vol] 0.71 10*3/uL Normal 0.10 - 1.00 [facility] Comment on above: Performed By: #### C BCDF ####[id number] [place] [address] Monocytes/100 WBC (Bld) 6.5 % Normal 2.0 - 10.0 [facility] Comment on above: Performed By: #### C BCDF ####[id number] [place] [address] Neutrophils (Bld) [#/Vol] 7.98 10*3/uL High 1.20 - 7.70 [facility] Comment on above: Performed By: #### C BCDF ####[id number] [place] [address] Neutrophils/100 WBC (Bld) 72.6 % Normal 40.0 - 80.0 [facility] Comment on above: Performed By: #### C BCDF ####[id number] [place] [address] NUCLEATED RBC 0.0 /100 WBC Normal 0.0-0.0 [facility] Comment on above: Performed By: #### C BCDF ####[id number] [place] [address] Platelets (Bld) [#/Vol] 242 10*3/uL Normal 150 - 450 [facility] Comment on above: Performed By: #### C BCDF ####[id number] [place] [address] RBC 3.39 x10E12/L Low 4.00 - 5.20 [facility] Comment on above: Performed By: #### C BCDF ####[id number] [place] [address] WBC (Bld) [#/Vol] 11.0 10*3/uL Normal 4.4 - 11.3 [facility] Comment on above: Performed By: #### C BCDF ####[id number] [place] [address] Complete Blood Count + Diffe vidya 09-22-2021 [...] with at bedside. She is currently on [employer]IVER for pain, and reports being tired this [...] this time. Objective: Objective Information: T PRBPSpO2 [id number]/5792% Date/Time09/22 0:001/18 8:001/18 8:001/18 8:001/18 8:00 Range(36.3C [...] Fair. Medications: Continuous Medications ------- 1. HYDROmorphone [employer]IVER 25 mg/ NaCL 0.9% 50 mL: 2.6 mg/hr IV [employer]IVER 2. Sodium Chloride 0.9% Infusion: 1000 mL [...] from Suboxone (more content not included)... Normal [facility] Daily Progress Note-Nuha stearns 09-22-2021 Daily Progress Note-Neurosurgery Service: Neurosurgery Subjective Data: MORALES LEE is a 46 year old Female who is Hospital Day # 8 and POD #1 for posterior L4-L5 decompression;posterior L4-L5 arthrodesis. Objective Data: Objective Information: T PRBPSpO2 [id number]/5895% Date/Time09/22 0:00118 0:00118 0:00118 0:00118 0:00 Range(36.2C - 36.8C ) (82 - 109 ) (12 - 20 ) (85 - 132 )/ (49 - 89 ) (94% - 100% ) As of 21-Sep-2021 17:00:00, patient is on 4 L/min of oxygen via nasal cannula. 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 Attestation: Note Completion: I am a: [...] the note. I personally evaluated the patient [id number] Electronic Signatures: Fidel Maciel (Resident)) (Signed 22-Sep-2021 00:35) Authored: Service, Subjective Data, Objective Data, Assessment and Plan, Note Completion Lex Frederick) (Signed 22-Sep-2021 10:31) Authored: Note Completion Co-Signer: Service, Subjective Data, Objective Data, Assessment and Plan, Note Completion Last Updated: 22-Sep-2021 10:31 by Lex Frederick) [facility] Discharge [id number] 022 Discharge Profile2 Discharge Orders: Anticipated Discharge Date: Anticipated Discharge [id number] Problem List: Additional Dx: Spinal stenosis of [...] Please call your Neurosurgeon's office (Dr. Frederick [phone]) if you have any questions. -If you [...] taking Acetamin (more content not included)... Normal [facility] LACTATEon 09-22-2021 Lactate [Moles/Vol] 0.8 mmol/L Normal 0.4 - 2.0 [facility] Comment on above: Result Comment: Trina puncture immediately after or during the administration of Metamizole may lead to falsely low results. Testing should be performed immediately prior to Metamizole dosing. Performed By: #### C BC #### [facility] [address] [place] [address] Laboratory - Hematology and Cell countson 09-22-2021 [...] threshold See Below MG-Gastroen terology-[facility] ell 6 [facility] Work Phone: Comment on above: Reference Range: 12. 0 - 16.0 MCHC (RBC) [Mass/Vol] 33.3 g/dL See Below [facility]- Gastroen terology-Ros[facility] 6 I Work Phone: Comment on above: Reference Range: 32. 0 - 36.0 MCV (RBC) [Entitic vol] 91 fL 80 - 100 M G-Gastroen terology-[facility] 6 [facility] Work Phone: Platelets (Bld) [#/Vol] 215 10*3/uL 150 - 450 [facility]-Gastroen terology-[facility] 6 [facility] Work Phone: RBC (Bld) [#/Vol] 3.37 {x10E12/L} below low threshold See Below MG-Gastroen terology-Rosendo ell 6 [facility] Work Phone: Comment on above: Reference Range: 4.0 0 - 5.20 WBC (Bld) [#/Vol] 9.6 10*3/uL 4.4 - 11.3 MG-Gas troen terology-[facility] 6 [facility] Work Phone: Lactate, Levelon 09-22-2021 Lactate [Moles/Vol] 0.8 mmol/L 0.4 - 2.0 MG-Ga stroen terology-Rosendo [facility] 6 [facility] Work Phone: Comment on [...] safety. Time IN10:50 Time OUT11:40 Total Treatment [id number] Patient in ... at end of sessionbed, 3 railings up; alarm on Communicated with ... at end of sessionbedside nurse Patient Effortgood Symptoms Noted During/After Treatmentfatigue; increased pain Patient Profile Reviewedyes Onset of Illness/Injury or Date of [id number] Reason for Referral-09/18/21: s/p exploration of spinal [...] EOB sitting. 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, DAVOL drain, wound vac O2 Deliverynasal cannula; 4L Pre Treatment Patient Positionsupine Pre Treatment Blood Pressure Ghhrgjcx18 mmHg Pre Treatment Diastolic (mm Hg)46 mmHg Pre Treatment Heart Rate (beats/min)67 Pre Treatment Respiratory Rate (breaths/min)19 Pre Treatment SpO2 (%)96 % Pre Treatment Oxygen Deliverysupplemental O2 Pre Treatment CommentsMAP 56 During Treatment Patient Positionsitting During Treatment Blood Pressure Xgddmovd90 mmHg During Treatment Diastolic (mm Hg)77 mmHg [...] to sit; sit to supine Roll Left Glynn (Bed Mobility)set up; verbal cues; 2 person assist; Pt required assist to bend BLE at (more content not included)... Normal [facility] PATH REVIEW-IMMUNOHEMATOLOGY on 09-22-2021 PATH REV-IMMUNOHEMOTOL ZURDO Normal [facility] Comment on above: Result Comment: By h [...] THIS PATIENT. Performed By: #### C #### [facility] [address] [place] [address] PT Evaluation [id number]-[id number] t - co-treatment with OT to [facility] 09-22-2021 PT Evaluation [id number] - co-treatment with OT to [facility] Rehab: Info: Mode of Treatmentphysical therapy; co-treatment; co-treatment with OT to maximize safety, mobility and ADL participation Time IN10:50 Time OUT11:40 Total Treatment [id number] Patient in ... at end of sessionbed, 3 railings up; alarm on Communicated with ... 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, DAVOL drain, wound vac O2 Deliverynasal cannula; 4L Pre Treatment Patient Positionsupine Pre Treatment Blood Pressure Mnclmevf73 mmHg Pre Treatment Diastolic (mm Hg)46 mmHg Pre Treatment Heart Rate (beats/min)67 Pre Treatment SpO2 (%)96 % Pre Treatment Oxygen Deliverysupplemental O2 During Treatment Patient Positionsitting During Treatment Blood Pressure Hgjzbuba17 mmHg During Treatment Diastolic (mm Hg)77 mmHg [...] sit to supine; rolling right Roll Left Glynn (Bed Mobility)verbal cues; 2 person assist; Pt required assist to bend BLE at knees and to initiate turn at shoulders and hips, verbal cues for grasp on bed rail, technique, direction follow, and encouragement.; maximum assist (25% patient effort) Roll Right Glynn (Bed Mobility)2 person assist; maximum assist (25% patient effort); verbal cues Scoot/Bridge Glynn (Bed Mobility)verbal cues; maximum assist (25% patient effort); 2 person assist; boost HOB Wjqnys-yo-Jew Glynn (Bed Mobility)verbal cues; maximum assist (25% patient effort); 1 person assist Yul-nq-Hdjaok Glynn (Bed Mobility)set up; verbal cues; maximum assist (25% patient effort); 1 person assist Assistive Device (Bed Mobility)bed rails; draw sheet Impairments Impacting Function (Mobility)balance; cognition; endurance/activity tolerance; pain; strength; postural/trunk control; motor control Motor: Sitting, Static (Balance)SBA Sitting, Dynamic (Balance)CGA Szn-sy-Ffybj (Balance)MADELIN this visit. 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 Pain LimitationFunctional mobility limited due pain; ADLs/IADLs limited due to pain; Participation limited by pain; RN or team was notified of limitations due to p (more content not included)... [facility] RENAL FUNCTION PANELon 09-22 Albumin [Mass/Vol] 2.7 g/dL Low 3.4 - 5.0 [facility] Comment on above: Performed By: #### C BC #### [facility] [address] [place] [address] Anion gap [Moles/Vol] 10 mmol/L Normal 10 - 20 [facility] Comment on above: Performed By: #### C BC #### [place] [id number] [place] [address] Calcium [Mass/Vol] 7.8 mg/dL Low 8.6 - 10.6 [facility] Comment on above: Performed By: #### C BC #### [facility] [address] [place] [address] Chloride [Moles/Vol] 105 mmol/L Normal 98 - 107 [facility] Comment on above: Performed By: #### C BC #### [facility] [address] [place] [address] Creatinine [Mass/Vol] 0.49 mg/dL Low 0.50 - 1.05 [facility] Comment on above: Performed By: #### C BC #### [place] [address] [place] [address] eGFR FEMALE >90 Normal >90 [facility] Comment on above: Result Comment: CALC ULATIONS OF ESTIMATED GFR ARE PERFORMED USING THE 2020 CKD-EPI STUDY REFIT EQUATION WITHOUT THE RACE VARIABLE FOR THE IDMS-TRACEABLE CREATININE METHODS. https://jasn.asnjournals.org/content/early//ASN.664 3753643 Performed By: #### C BC #### [facility] [address] [place] [address] Glucose [Mass/Vol] 93 mg/dL Normal 74 - 99 [facility] Comment on above: Performed By: #### C BC #### [facility] [address] [place] [address] HCO3 (Bld) [Moles/Vol] 29 mmol/L Normal 21 - 32 [facility] Comment on above: Performed By: #### C BC #### [facility] [address] [place] [address] Phosphate [Mass/Vol] 2.4 mg/dL Low 2.5 - 4.9 [facility] Comment on above: Result Comment: The performance characteristics of phosphorus testing in heparinized plasma have been validated by the individual laboratory site where testing is performed. Testing on heparinized plasma is not approved by the FDA; however, such approval is not necessary. Performed By: #### C BC #### [facility] [address] [place] [address] Potassium [Moles/Vol] 4.3 mmol/L Normal 3.5 - 5.3 [facility] Comment on above: Performed By: #### C BC #### [facility] [address] [place] [address] Sodium [Moles/Vol] 140 mmol/L Normal 136 - 145 [facility] Comment on above: Performed By: #### C BC #### [facility] [address] [place] [address] Urea nitrogen [Mass/Vol] 9 mg/dL Normal 6 - 23 [facility] Comment on above: Performed By: #### C BC #### [facility] [address] [place] [address] Renal Function Panelon 09-22 Albumin BCP dye [...] - 5.3 [facility]- Gastroen terology[facility] 6 [facility] Work Phone: Sodium [Moles/Vol] 140 mmol/L 136 - 145 [facility]-Gas troen terology-[place] [facility] I Work Phone: Urea nitrogen [Mass/Vol] 9 mg/dL 6 - 23 [facility]astroen [facility] [facility] I Work Phone: Renal Function Panel >90 >90 [facility]-G astroen terology-[place] 6 [facility] Work Phone: Comment on above: CALCULATIONS OF IVY MATED GFR ARE PERFORMED USING THE 2020 CKD-EPI STUDY REFIT EQUATION WITHOUT THE RACE VARIABLE FOR THE IDMS-TRACEABLE CREATININE METHODS.https://jasn.asnjournals.org/content/ /ASN.4938405149 UA MICROSCOPICon 09-22-2021 RBC 6 /HPF Abnormal 0-5 [facility] Comment on above: Performed By: #### C BC #### [facility] [address] [place] [address] SQUAMOUS EPITH. CELLS 1 /HPF Normal [facility] Comment on above: Performed By: #### C BC #### [facility] [address] [place] [address] WBC 8 /HPF Abnormal 0-5 [facility] Comment on above: Performed By: #### C BC #### [facility] [address] [place] [address] URINALYSIS WITH CULTURE IF I NDICATEDon 09-22-2021 Appearance (U) CLEAR Normal CLEAR [facility] Comment on above: Performed By: #### U ARFX ####[id number] [place] [address] Bilirubin Ql (U) Negative Normal NEGATIVE [facility] Comment on above: Performed By: #### U ARFX ####[id number] [place] [address] Color (U) MIRANDA Normal STRAW,YELL OW [facility] Comment on above: Performed By: #### U ARFX ####[id number] [place] [address] Glucose Ql (U) Negative Normal NEGATIVE [facility] Comment on above: Performed By: #### U ARFX ####[id number] [place] [address] Hemoglobin Ql (U) Negative Normal NEGATIVE [facility] Comment on above: Performed By: #### U ARFX ####[id number] [place] [address] Ketones Ql (U) 20 (1+) Abnormal NEGATIVE [facility] Comment on above: Performed By: #### U ARFX ####[id number] [place] [address] Leukocyte esterase Test strip Ql (U) Negative Normal NEGATIVE [facility] Comment on above: Performed By: #### U ARFX ####[id number] [place] [address] Nitrite Ql (U) Negative Normal NEGATIVE [facility] Comment on above: Performed By: #### U ARFX ####[id number] [place] [address] pH (U) 5.0 [pH] Normal 5.0 - 8.0 [facility] Comment on above: Performed By: #### U ARFX ####[id number] [place] [address] Protein Ql (U) 30 (1+) Abnormal NEGATIVE [facility] Comment on above: Performed By: #### U ARFX ####[id number] [place] [address] Specific gravity (U) [Rel density] 1.040 High 1.005 - 1.035 [facility] Comment on above: Performed By: #### U ARFX ####[id number] [place] [address] Urobilinogen (U) [Mass/Vol] 2.0 mg/dL High 0.0 - 1.9 [facility] Comment on above: Result Comment: Due to [...] positive urobilinogen. Performed By: #### U ARFX ####[id number] [place] [address] Lab Specimen Source Normal [facility] Comment on above: Performed By: #### U ARFX ####[id number] [place] [address] Performed By: #### C BC #### [facility] [address] [place] [address] Color (U) MIRANDA See Below [facility]-Gastroen terology-[facility] [...] CULTURE,BACTERIALon URINE CULTURE,BACTERIAL PATIENT: Fay LEE LOCATION: [place] [address] BILL#: [id number] : 71 AGE: SEX: F ORDERED BY: AMBROCIO IZAGUIRRE SOURCE: URINE COLLECTED: 09/22/21 12:59 ANTIBIOTICS AT [facility].: RECEIVED : 09/22/21 14:59 SITE: R E S U L T S URINE CULTURE,BACTERIAL FINAL 09/23/21 09:04 NO SIGNIFICANT GROWTH. Normal [facility] Comment on above: Performed By: #### C BC #### [facility] [address] [place] [address] Urinalysis, Microscopicon Urinalysis, Microscopic 1 {/HPF} M [facility] [facility] I Work Phone: Urinalysis, Microscopic 6 {/HPF} Abnormal 0-5 M [facility] [facility] I Work Phone: Urinalysis, Microscopic 8 {/HPF} Abnormal 0-5 M [facility] [facility] I Work Phone: Comment on above: SOURCE: CBCon 09-21-2021 Erythrocyte distribution width (RBC) [Ratio] 13.1 % Normal 11.5 - 14.5 [facility] Comment on above: Performed By: #### R ENAL #### [facility] [address] [place] [address] Hematocrit (Bld) [Volume fraction] 34.5 % Low 36.0 - 46.0 [facility] Comment on above: Performed By: #### R ENAL #### [facility] [address] [place] [address] Hemoglobin (Bld) [Mass/Vol] 11.4 g/dL Low 12.0 - 16.0 [facility] Comment on above: Performed By: #### R ENAL #### [facility] [address] [place] [address] MCHC (RBC) [Mass/Vol] 33.0 g/dL Normal 32.0 - 36.0 [facility] Comment on above: Performed By: #### R ENAL #### [facility] [address] [place] [address] MCV (RBC) [Entitic vol] 91 fL Normal 80 - 100 U [facility] Comment on above: Performed By: #### R ENAL #### [facility] [address] [place] [address] NUCLEATED RBC 0.0 /100 WBC Normal 0.0-0.0 [facility] Comment on above: Performed By: #### R ENAL #### [facility] [address] [place] [address] Platelets (Bld) [#/Vol] 269 10*3/uL Normal 150 - 450 [facility] Comment on above: Performed By: #### R ENAL #### [facility] [address] [place] [address] RBC 3.81 x10E12/L Low 4.00 - 5.20 [facility] Comment on above: Performed By: #### R ENAL #### [facility] [address] [place] [address] WBC (Bld) [#/Vol] 14.6 10*3/uL High 4.4 - 11.3 [facility] Comment on above: Performed By: #### R ENAL #### [facility] [address] [place] [address] Erythrocyte distribution width (RBC) [Ratio] 13.2 % Normal 11.5 - 14.5 [facility] Comment on above: Performed By: #### R ENAL #### [facility] [address] [place] [address] Hematocrit (Bld) [Volume fraction] 35.8 % Low 36.0 - 46.0 [facility] Comment on above: Performed By: #### R ENAL #### [facility] [address] [place] [address] Hemoglobin (Bld) [Mass/Vol] 11.9 g/dL Low 12.0 - 16.0 [facility] Comment on above: Performed By: #### R ENAL #### [facility] [address] [place] [address] MCHC (RBC) [Mass/Vol] 33.2 g/dL Normal 32.0 - 36.0 [facility] Comment on above: Performed By: #### R ENAL #### [facility] [address] [place] [address] MCV (RBC) [Entitic vol] 91 fL Normal 80 - 100 U [facility] Comment on above: Performed By: #### R ENAL #### [facility] [address] [place] [address] NUCLEATED RBC 0.0 /100 WBC Normal 0.0-0.0 [facility] Comment on above: Performed By: #### R ENAL #### [facility] [address] [place] [address] Platelets (Bld) [#/Vol] 215 10*3/uL Normal 150 - 450 [facility] Comment on above: Performed By: #### R ENAL #### [facility] [address] [place] [address] RBC 3.93 x10E12/L Low 4.00 - 5.20 [facility] Comment on above: Performed By: #### R ENAL #### [place] [address] [place] [address] WBC (Bld) [#/Vol] 14.8 10*3/uL High 4.4 - 11.3 [facility] Comment on above: Performed By: #### R ENAL #### [facility] [address] [place] [address] Daily Progress Note-Neurosjudy stearns 09-21-2021 Daily Progress Note-Neurosurgery Service: Neurosurgery Subjective Data: MORALES LEE is a 46 year old Female who is Hospital Day # 7 and POD #3 for 1. Exploration of spinal fusion;2. Reduction of L4/5 dislocation;2. L5-pelvis instrumented fusion with posterolateral arthrodesis;4. Extension of instrumentation with multiple kwame construct and side connectors. 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 Normal [facility] - Blood bankon ABO group Nom [...] lumbar spine September 18, 2021 ACCESSION NUMBER(S): [id number]; [id number] ORDERING CLINICIAN: DEVANTE STARKS TECHNIQUE: Sagittal axial [...] Electronically signed by: NATALIA WALL DO Normal [facility] NR MRI T-SPINE WOon 09-21-19 NR MRI T-SPINE WO Patient Name: MORALES LEE STUDY: MRI T-SPINE WO; MRI L-SPINE WO; 09/20/2021 10:40 pm; 09/20/2021 10:42 pm INDICATION: postop foot weakness, Lie Flat: Yes, Pre Med: No . COMPARISON: MRI December 24, [address] of the lumbar spine September 18, 2021 ACCESSION NUMBER(S): [id number]; [id number] ORDERING CLINICIAN: DEVANTE STARKS TECHNIQUE: Sagittal axial [...] Electronically signed by: NATALIA WALL DO Normal [facility] No Panel Informationon 09-21 0.0 {/100_WBC} 0.0-0.0 [...] Preop Checklist Preop Checklist: Preop Checklist: Arrival [id number] Arrival Time11:00 Procedure Typere-exploration of spine Temperature C36.2 degrees C Temperature F97.1 degrees F Heart Rate91 beats per minute Respiratory Rate18 breath per minute Blood Pressure Gbqtwamk141 mm/Hg Blood Pressure Rtlyullin02 mm/Hg COVID 19 Results in Last 7 [...] 21-Sep-2021 11:17 by Linh Buchanan (RN) Normal [facility] REQUEST-LEUKOREDUCED RED ANJU LSon 09-21-2021 REQUEST-LEUKOREDUCED RED CELLS ORDER RECD Normal [facility] Comment on above: Performed By: #### A FPA3 #### [facility] [address] [place] [address] TYPE + SCREENon 09-21-2021 ABO TYPE O Normal [facility] Comment on above: Performed By: #### A FPA3 #### [facility] [address] [place] [address] RH TYPE Positive Normal [facility] Comment on above: Performed By: #### A FPA3 #### [facility] [address] [place] [address] ABO TYPE Canceled Normal [facility] Comment on above: Order Comment: VENECIA ESPINO, 09/21/2021 05:08TEST TYPE + SCREEN WAS CANCELLED, 09/21/2021 05:06 NO PHLEB ID ON TUBE. Result Comment: EULA ESPINO, 09/21/2021 05:08 Performed By: #### A FPA3 #### [facility] [address] [place] [address] RH TYPE Canceled Normal [facility] Comment on above: Order Comment: VENECIA ESPINO, 09/21/2021 05:08TEST TYPE + SCREEN WAS CANCELLED, 09/21/2021 05:06 NO PHLEB ID ON TUBE. Result Comment: CALL ED RN AFSANEH ESPINO, 09/21/2021 05:08 Performed By: #### A FPA3 #### [facility] [address] [place] [address] CBCon 09-20-2021 Erythrocyte distribution width (RBC) [Ratio] 13.2 % Normal 11.5 - 14.5 [facility] Comment on above: Performed By: #### C BC #### [facility] [address] [place] [address] Hematocrit (Bld) [Volume fraction] 30.8 % Low 36.0 - 46.0 [facility] Comment on above: Performed By: #### C BC #### [facility] [address] [place] [address] Hemoglobin (Bld) [Mass/Vol] 9.8 g/dL Low 12.0 - 16.0 [facility] Comment on above: Performed By: #### C BC #### [facility] [address] [place] [address] MCHC (RBC) [Mass/Vol] 31.8 g/dL Low 32.0 - 36.0 [facility] Comment on above: Performed By: #### C BC #### [facility] [address] [place] [address] MCV (RBC) [Entitic vol] 93 fL Normal 80 - 100 U [facility] Comment on above: Performed By: #### C BC #### [facility] [address] [place] [address] NUCLEATED RBC 0.0 /100 WBC Normal 0.0-0.0 [facility] Comment on above: Performed By: #### C BC #### [facility] [address] [place] [address] Platelets (Bld) [#/Vol] 224 10*3/uL Normal 150 - 450 [facility] Comment on above: Performed By: #### C BC #### [facility] [address] [place] [address] RBC 3.32 x10E12/L Low 4.00 - 5.20 [facility] Comment on above: Performed By: #### C BC #### [facility] [address] [place] [address] WBC (Bld) [#/Vol] 12.1 10*3/uL High 4.4 - 11.3 [facility] Comment on above: Performed By: #### C BC #### [facility] [address] [place] [address] Daily Progress Note-Neurosjudy stearns 09-20-2021 Daily Progress Note-Neurosurgery Service: Neurosurgery Subjective Data: MORALES LEE is a 46 year old Female who is Hospital Day # 6 and POD #2 for 1. Exploration of spinal fusion;2. Reduction of L4/5 dislocation;2. L5-pelvis instrumented fusion with posterolateral arthrodesis;4. Extension of instrumentation with multiple kwame construct and side connectors. Objective Data: Objective Information: T PRBPSpO2 [id number]/5095% Date/Time09/19 16: 1: 16: 1:341 1:34 Range(36.7C - 36.7C ) (84 - 110 ) (18 - 18 ) (82 - 118 )/ (50 - 97 ) (94% - 97% ) As of 19-Sep-2021 08:00:00, patient is on 2 L/min of oxygen via nasal cannula. 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 I agree with the resident/fellows medical decision making as documented in the note. Electronic Signatures: Fiedl Maciel (Resident)) (Signed 20-Sep-2021 02:09) Authored: Service, Subjective Data, Objective Data, Assessment and Plan, Note Completion Perez Carlisle) (Signed 21-Sep-2021 11:28) Authored: Note Completion Co-Signer: Service, Subjective Data, Objective Data, Assessment and Plan, Note Completion Last Updated: 21-Sep-2021 11:28 by Perez Carlisle) Normal [facility] - Hematology and Cell countson 09-20-2021 [...] 20-Sep-2021 12:25 by Carole Carlos (OT) Normal [facility] PT Evaluation v2-attemptedon 09-20-2021 PT Evaluation v2-attempted Rehab: Info: Mode of Treatmentattempted Time IN12:00 Evaluation Not PerformedPer RN pt not appropriate for therapy, pt continues to have low BP and plan to receive blood, will hold and reattempt as appropriate Electronic Signatures: Kaykay Yoo (PT) (Signed 20-Sep-2021 12:42) Authored: Info Last Updated: 20-Sep-2021 12:42 by Kaykay Yoo (PT) Normal [facility] REQUEST-LEUKOREDUCED RED ANJU LSon 09-20-2021 REQUEST-LEUKOREDUCED RED CELLS ORDER RECD Normal [facility] Comment on above: Performed By: #### R ENAL #### [facility] [address] [place] [address] CBCon 09-19-2021 Erythrocyte distribution width (RBC) [Ratio] 12.4 % Normal 11.5 - 14.5 [facility] Comment on above: Performed By: #### R ENAL #### [facility] [address] [place] [address] Hematocrit (Bld) [Volume fraction] 38.3 % Normal 36.0 - 46.0 [facility] Comment on above: Performed By: #### R ENAL #### [facility] [address] [place] [address] Hemoglobin (Bld) [Mass/Vol] 13.4 g/dL Normal 12.0 - 16.0 [facility] Comment on above: Performed By: #### R ENAL #### [facility] [address] [place] [address] MCHC (RBC) [Mass/Vol] 35.0 g/dL Normal 32.0 - 36.0 [facility] Comment on above: Performed By: #### R ENAL #### [facility] [address] [place] [address] MCV (RBC) [Entitic vol] 85 fL Normal 80 - 100 U [facility] Comment on above: Performed By: #### R ENAL #### [facility] [address] [place] [address] NUCLEATED RBC 0.0 /100 WBC Normal 0.0-0.0 [facility] Comment on above: Performed By: #### R ENAL #### [facility] [address] [place] [address] Platelets (Bld) [#/Vol] 326 10*3/uL Normal 150 - 450 [facility] Comment on above: Performed By: #### R ENAL #### [facility] [address] [place] [address] RBC 4.51 x10E12/L Normal 4.00 - 5.20 [facility] Comment on above: Performed By: #### R ENAL #### [facility] [address] [place] [address] WBC (Bld) [#/Vol] 20.5 10*3/uL High 4.4 - 11.3 [facility] Comment on above: Performed By: #### R ENAL #### [facility] [address] [place] [address] CBC AND DIFFERENTIALon 09-19 % AUTOMATED IMMATURE GRAN 0.6 % Normal 0.0 - 0.9 [facility] Comment on above: Result Comment: Jaleesa ture Granulocyte Count (IG) includes promyelocytes, myelocytes and metamyelocytes but does not include bands. Percent differential counts (%) should be interpreted in the context of the absolute cell counts (cells/L). Performed By: #### V FPA3 #### [facility] [address] [place] [address] Basophils (Bld) [#/Vol] 0.03 10*3/uL Normal 0.00 - 0.10 [facility] Comment on above: Performed By: #### V FPA3 #### [facility] [address] [place] [address] Basophils/100 WBC (Bld) 0.1 % Normal 0.0 - 2.0 [facility] Comment on above: Performed By: #### V FPA3 #### [facility] [address] [place] [address] Eosinophils (Bld) [#/Vol] 0.01 10*3/uL Normal 0.00 - 0.70 [facility] Comment on above: Performed By: #### V FPA3 #### [facility] [address] [place] [address] Eosinophils/100 WBC (Bld) 0.0 % Normal 0.0 - 6.0 [facility] Comment on above: Performed By: #### V FPA3 #### [facility] [address] [place] [address] Erythrocyte distribution width (RBC) [Ratio] 12.9 % Normal 11.5 - 14.5 [facility] Comment on above: Performed By: #### V FPA3 #### [facility] [address] [place] [address] Hematocrit (Bld) [Volume fraction] 38.3 % Normal 36.0 - 46.0 [facility] Comment on above: Performed By: #### V FPA3 #### [facility] [address] [place] [address] Hemoglobin (Bld) [Mass/Vol] 12.7 g/dL Normal 12.0 - 16.0 [facility] Comment on above: Performed By: #### V FPA3 #### [facility] [address] [place] [address] Lymphocytes (Bld) [#/Vol] 2.89 10*3/uL Normal 1.20 - 4.80 [facility] Comment on above: Performed By: #### V FPA3 #### [facility] [address] [place] [address] Lymphocytes/100 WBC (Bld) 13.5 % Normal 13.0 - 44.0 [facility] Comment on above: Performed By: #### V FPA3 #### [facility] [address] [place] [address] MCHC (RBC) [Mass/Vol] 33.2 g/dL Normal 32.0 - 36.0 [facility] Comment on above: Performed By: #### V FPA3 #### [facility] [address] [place] [address] MCV (RBC) [Entitic vol] 89 fL Normal 80 - 100 [facility] Comment on above: Performed By: #### V FPA3 #### [facility] [address] [place] [address] Monocytes (Bld) [#/Vol] 1.23 10*3/uL High 0.10 - 1.00 [facility] Comment on above: Performed By: #### V FPA3 #### [facility] [address] [place] [address] Monocytes/100 WBC (Bld) 5.7 % Normal 2.0 - 10.0 [facility] Comment on above: Performed By: #### V FPA3 #### [facility] [address] [place] [address] Neutrophils (Bld) [#/Vol] 17.16 10*3/uL High 1.20 - 7.70 [facility] Comment on above: Performed By: #### V FPA3 #### [facility] [address] [place] [address] Neutrophils/100 WBC (Bld) 80.1 % Normal 40.0 - 80.0 [facility] Comment on above: Performed By: #### V FPA3 #### [facility] [address] [place] [address] NUCLEATED RBC 0.0 /100 WBC Normal 0.0-0.0 [facility] Comment on above: Performed By: #### V FPA3 #### [facility] [address] [place] [address] Platelets (Bld) [#/Vol] 401 10*3/uL Normal 150 - 450 [facility] Comment on above: Performed By: #### V FPA3 #### [facility] [address] [place] [address] RBC 4.28 x10E12/L Normal 4.00 - 5.20 [facility] Comment on above: Performed By: #### V FPA3 #### [facility] [address] [place] [address] WBC (Bld) [#/Vol] 21.5 10*3/uL High 4.4 - 11.3 [facility] Comment on above: Performed By: #### V FPA3 #### [facility] [address] [place] [address] COAGULATION SCREENon 022 aPTT Coag (Bld) [Time] 29 s Normal 26 - 39 [facility] Comment on above: Result Comment: Note new reference range as of 08/04/2021 at 10:00am. Performed By: #### R ENAL #### [facility] [address] [place] [address] PT Coag (PPP) [Time] 11.5 s Normal 9.8 - 13.4 [facility] Comment on above: Result Comment: Note new reference range as of 08/04/2021 at 10:00am. Performed By: #### R ENAL #### [facility] [address] [place] [address] PT, INR 1.0 Normal 0.9 - 1.1 [facility] Comment on above: Performed By: #### R ENAL #### [facility] [address] [place] [address] Complete Blood Count + Diffe vidya 09-19-2021 [...] connectors. Objective Data: Objective Information: T PRBPSpO2 [id number]/8596% Date/Time09/18 17: 17: 17: 17: 17:40 Range(36.4C [...] ----- Mn/Dy/Year TimeIntakeOutputNet Sep 17, 2021 10:00 [id number] The Intake and Output Totals for the last 24 hours are: IntakeOutputNet [id number] Physical Exam by System: Neurological: A&Ox3 RUE D5, B5, T5, HG5, IO5 LUE D4+, B4+, T4+, HG4+, IO5 RLE HF 4+, KE4+, PF5, DF5 (pain limited) LLE HF 4-, KE4-, PF4, DF5 Recent Lab Results: Results: Recent Arterial Blood Gas Results 09/18/2021 11:48 [id number] 24 h range: ( 219 - 224 ) pH7.44 24 h range: ( 7.44 - 7.45 ) rFD364 24 h range: ( 37 - 40 ) KU3773 24 h range: ( 100 - 100 ) Base Excess2.8 24 h range: ( 1.8 - 2.8 ) Atijgbwqply81.2 24 h range: ( 25.7 - 27.2 [...] the note. I personally evaluated the patient [id number] Comments/ Additional Findings Patients postoperative CT scan [...] Assessment an (more content not included)... Normal [facility] - Coagulationon 0 09-19-2021 aPTT Coag [...] [Mass/Vol] 1.59 mg/dL Low 1.60 - 2.40 [facility] Comment on above: Performed By: #### R ENAL #### [facility] [address] [place] [address] PT Evaluation v2-attemptedon 09-19-2021 PT Evaluation v2-attempted Rehab: Info: Mode of Treatmentattempted Time IN11:37 Time OUT11:50 Total Treatment Fplceog08 Evaluation Not PerformedHistory obtained, BP assessed in supine 79/54mmHg, RN notified and redone with 71/51mmHg, will hold PT eval at this time and reattempt as medically appropriate Electronic Signatures: Kaykay Yoo (PT) (Signed 19-Sep-2021 12:14) Authored: Info Last Updated: 19-Sep-2021 12:14 by Kaykay Yoo (PT) Normal [facility] RENAL FUNCTION PANELon 09-19 Albumin [Mass/Vol] 3.4 g/dL Normal 3.4 - 5.0 [facility] Comment on above: Performed By: #### A FPA3 #### [facility] [address] [place] [address] Anion gap [Moles/Vol] 18 mmol/L Normal 10 - 20 [facility] Comment on above: Performed By: #### A FPA3 #### [facility] [address] [place] [address] Calcium [Mass/Vol] 8.3 mg/dL Low 8.6 - 10.6 [facility] Comment on above: Performed By: #### A FPA3 #### [facility] [address] [place] [address] Chloride [Moles/Vol] 100 mmol/L Normal 98 - 107 [facility] Comment on above: Performed By: #### A FPA3 #### [facility] [address] [place] [address] Creatinine [Mass/Vol] 0.60 mg/dL Normal 0.50 - 1.05 [facility] Comment on above: Performed By: #### A FPA3 #### [facility] [address] [place] [address] eGFR FEMALE >90 Normal >90 [facility] Comment on above: Result Comment: CALC ULATIONS OF ESTIMATED GFR ARE PERFORMED USING THE 2020 CKD-EPI STUDY REFIT EQUATION WITHOUT THE RACE VARIABLE FOR THE IDMS-TRACEABLE CREATININE METHODS. https://jasn.asnjournals.org/content/early//ASN.754 0145081 Performed By: #### A FPA3 #### [facility] [address] [place] [address] Glucose [Mass/Vol] 82 mg/dL Normal 74 - 99 [facility] Comment on above: Performed By: #### A FPA3 #### [facility] [address] [place] [address] HCO3 (Bld) [Moles/Vol] 26 mmol/L Normal 21 - 32 [facility] Comment on above: Performed By: #### A FPA3 #### [facility] [address] [place] [address] Phosphate [Mass/Vol] 2.8 mg/dL Normal 2.5 - 4.9 [facility] Comment on above: Result Comment: The performance characteristics of phosphorus testing in heparinized plasma have been validated by the individual laboratory site where testing is performed. Testing on heparinized plasma is not approved by the FDA; however, such approval is not necessary. Performed By: #### A FPA3 #### [facility] [address] [place] [address] Potassium [Moles/Vol] 4.5 mmol/L Normal 3.5 - 5.3 [facility] Comment on above: Performed By: #### A FPA3 #### [facility] [address] [place] [address] Sodium [Moles/Vol] 139 mmol/L Normal 136 - 145 [facility] Comment on above: Performed By: #### A FPA3 #### [facility] [address] [place] [address] Urea nitrogen [Mass/Vol] 9 mg/dL Normal 6 - 23 [facility] Comment on above: Performed By: #### A FPA3 #### [facility] [address] [place] [address] Albumin [Mass/Vol] 3.6 g/dL Normal 3.4 - 5.0 [facility] Comment on above: Performed By: #### R ENAL #### [facility] [address] [place] [address] Anion gap [Moles/Vol] 13 mmol/L Normal 10 - 20 [facility] Comment on above: Performed By: #### R ENAL #### [facility] [address] [place] [address] Calcium [Mass/Vol] 8.9 mg/dL Normal 8.6 - 10.6 [facility] Comment on above: Performed By: #### R ENAL #### [facility] [address] [place] [address] Chloride [Moles/Vol] 100 mmol/L Normal 98 - 107 [facility] Comment on above: Performed By: #### R ENAL #### [facility] [address] [place] [address] Creatinine [Mass/Vol] 0.51 mg/dL Normal 0.50 - 1.05 [facility] Comment on above: Performed By: #### R ENAL #### [facility] [address] [place] [address] eGFR FEMALE >90 Normal >90 [facility] Comment on above: Result Comment: CALC ULATIONS OF ESTIMATED GFR ARE PERFORMED USING THE 2020 CKD-EPI STUDY REFIT EQUATION WITHOUT THE RACE VARIABLE FOR THE IDMS-TRACEABLE CREATININE METHODS. https://jasn.asnjournals.org/content//ASN.677 2651254 Performed By: #### R ENAL #### [facility] [address] [place] [address] Glucose [Mass/Vol] 123 mg/dL High 74 - 99 [facility] Comment on above: Performed By: #### R ENAL #### [facility] [address] [place] [address] HCO3 (Bld) [Moles/Vol] 28 mmol/L Normal 21 - 32 [facility] Comment on above: Performed By: #### R ENAL #### [facility] [address] [place] [address] Phosphate [Mass/Vol] 2.8 mg/dL Normal 2.5 - 4.9 [facility] Comment on above: Result Comment: The performance characteristics of phosphorus testing in heparinized plasma have been validated by the individual laboratory site where testing is performed. Testing on heparinized plasma is not approved by the FDA; however, such approval is not necessary. Performed By: #### R ENAL #### [facility] [address] [place] [address] Potassium [Moles/Vol] 4.3 mmol/L Normal 3.5 - 5.3 [facility] Comment on above: Performed By: #### R ENAL #### [facility] [address] [place] [address] Sodium [Moles/Vol] 137 mmol/L Normal 136 - 145 [facility] Comment on above: Performed By: #### R ENAL #### [facility] [address] [place] [address] Urea nitrogen [Mass/Vol] 8 mg/dL Normal 6 - 23 [facility] Comment on above: Performed By: #### R ENAL #### [facility] [address] [place] [address] Renal Function Panelon 09-19 Albumin BCP dye [Mass/Vol] 3.4 g/dL 3.4 - 5.0 [facility]-Gastroen terology-Rosendo lwell 6 [facility] Work Phone: Anion gap [...] RACE VARIABLE FOR THE IDMS-TRACEABLE CREATININE METHODS.https://jasn.asnjournals.org/content/ /ASN.4918527778 ANTIBODY IDENT.on 09-18-2021 ANTIBODY IDENT. Anti-E Normal [facility] Comment on above: Performed By: #### A FPA3 #### [facility] [address] [place] [address] ARTERIAL FULL PANELon 2021 Anion gap [Moles/Vol] 5 mmol/L Low 10 - 25 [facility] Comment on above: Performed By: #### A FPA3 ####[id number] [place] [address] BASE EXCESS-BLOOD 2.8 mmol/L Normal -2.0 - 3.0 [facility] Comment on above: Performed By: #### A FPA3 ####[id number] [place] [address] BICARB, CALCULATED 27.2 mmol/L High 22.0 - 26.0 [facility] Comment on above: Performed By: #### A FPA3 ####[id number] [place] [address] CALCIUM,IONIZED 1.20 mmol/L Normal 1.10 - 1.33 [facility] Comment on above: Performed By: #### A FPA3 ####[id number] [place] [address] Chloride [Moles/Vol] 106 mmol/L Normal 98 - 107 [facility] Comment on above: Performed By: #### A FPA3 ####[id number] [place] [address] Glucose [Mass/Vol] 149 mg/dL High 74 - 99 [facility] Comment on above: Performed By: #### A FPA3 ####[id number] [place] [address] Hematocrit (Bld) [Volume fraction] 38.0 % Normal 36.0 - 46.0 [facility] Comment on above: Performed By: #### A FPA3 ####[id number] [place] [address] HGB,CALCULATED 12.9 g/dL Normal 12.0 - 16.0 [facility] Comment on above: Performed By: #### A FPA3 ####[id number] [place] [address] Lactate [Moles/Vol] 0.9 mmol/L Normal 0.4 - 2.0 [facility] Comment on above: Performed By: #### A FPA3 ####[id number] [place] [address] Oxygen (Bld) [Partial pressure] 219 mm[Hg] High 85 - 95 [facility] Comment on above: Performed By: #### A FPA3 ####[id number] [place] [address] PATIENT TEMPERATURE 37.0 degrees C Normal [facility] Comment on above: Result Comment: NOTE : PATIENT RESULTS ARE NOT CORRECTED FOR TEMPERATURE. Performed By: #### A FPA3 ####[id number] [place] [address] PCO2 40 mmHg Normal 38 - 42 [facility] Comment on above: Performed By: #### A FPA3 ####[id number] [place] [address] pH (Bld) 7.44 [pH] High 7.38 - 7.42 [facility] Comment on above: Performed By: #### A FPA3 ####[id number] [place] [address] Potassium [Moles/Vol] 4.4 mmol/L Normal 3.5 - 5.3 [facility] Comment on above: Performed By: #### A FPA3 ####[id number] [place] [address] SO2 100 % Normal 94 - 100 [facility] Comment on above: Performed By: #### A FPA3 ####[id number] [place] [address] Sodium [Moles/Vol] 134 mmol/L Low 136 - 145 [facility] Comment on above: Performed By: #### A FPA3 ####[id number] [place] [address] Anion gap [Moles/Vol] 7 mmol/L Low 10 - 25 [facility] Comment on above: Performed By: #### A FPA3 #### [facility] [address] [place] [address] BASE EXCESS-BLOOD 1.8 mmol/L Normal -2.0 - 3.0 [facility] Comment on above: Performed By: #### A FPA3 #### [facility] [address] [place] [address] BICARB, CALCULATED 25.7 mmol/L Normal 22.0 - 26.0 [facility] Comment on above: Performed By: #### A FPA3 #### [facility] [address] [place] [address] CALCIUM,IONIZED 1.20 mmol/L Normal 1.10 - 1.33 [facility] Comment on above: Performed By: #### A FPA3 #### [facility] [address] [place] [address] Chloride [Moles/Vol] 105 mmol/L Normal 98 - 107 [facility] Comment on above: Performed By: #### A FPA3 #### [facility] [address] [place] [address] Glucose [Mass/Vol] 174 mg/dL High 74 - 99 [facility] Comment on above: Performed By: #### A FPA3 #### [facility] [address] [place] [address] Hematocrit (Bld) [Volume fraction] 37.0 % Normal 36.0 - 46.0 [facility] Comment on above: Performed By: #### A FPA3 #### [facility] [address] [place] [address] HGB,CALCULATED 12.6 g/dL Normal 12.0 - 16.0 [facility] Comment on above: Performed By: #### A FPA3 #### [facility] [address] [place] [address] Lactate [Moles/Vol] 1.1 mmol/L Normal 0.4 - 2.0 [facility] Comment on above: Performed By: #### A FPA3 #### [facility] [address] [place] [address] Oxygen (Bld) [Partial pressure] 224 mm[Hg] High 85 - 95 [facility] Comment on above: Performed By: #### A FPA3 #### [facility] [address] [place] [address] PATIENT TEMPERATURE 37.0 degrees C Normal [facility] Comment on above: Result Comment: NOTE : PATIENT RESULTS ARE NOT CORRECTED FOR TEMPERATURE. Performed By: #### A FPA3 #### [facility] [address] [place] [address] PCO2 37 mmHg Low 38 - 42 [facility] Comment on above: Performed By: #### A FPA3 #### [facility] [address] [place] [address] pH (Bld) 7.45 [pH] High 7.38 - 7.42 [facility] Comment on above: Performed By: #### A FPA3 #### [facility] [address] [place] [address] Potassium [Moles/Vol] 3.9 mmol/L Normal 3.5 - 5.3 [facility] Comment on above: Performed By: #### A FPA3 #### [facility] [address] [place] [address] SO2 100 % Normal 94 - 100 [facility] Comment on above: Performed By: #### A FPA3 #### [facility] [address] [place] [address] Sodium [Moles/Vol] 134 mmol/L Low 136 - 145 [facility] Comment on above: Performed By: #### A FPA3 #### [facility] [address] [place] [address] CT L Spine without Contrasto n 09-18-2021 [...] connectors. Objective Data: Objective Information: T PRBPSpO2 [id number]/4391% Date/Time09/18 6: 5: 5: 5: 5:56 Range(37C [...] Recent Arterial Blood Gas Results 09/18/2021 11:48 hR9579 24 h range: ( 219 - 224 ) pH7.44 24 h range: ( 7.44 - 7.45 ) lLL868 24 h range: ( 37 - 40 ) NV2675 24 h range: ( 100 - 100 ) Base Excess2.8 24 h range: ( 1.8 - 2.8 ) Joyntbahxnq82.2 24 h range: ( 25.7 - 27.2 ) Assessment and Plan: Code Status: Code StatusFull Code Electronic Signatures: Bryan Mora) (Signed 18-Sep-2021 14:47) Authored: Service, Subjective Data, Objective Data, Assessment and Plan, Note Completion Last Updated: 18-Sep-2021 14:47 by Bryan Mora) Normal [facility] Daily Progress Note-Neurosur jinny 09-18-2021 Daily Progress Note-Neurosurgery Service: Neurosurgery Subjective Data: MORALES LEE is a 46 year old Female who is Hospital Day # 4. Objective Data: Objective Information: T PRBPSpO2 [id number]/4391% Date/Time1/14 6:041/14 5:56114 5:56114 5:561/14 5:56 Range(36.6C [...] Intake and Output ----- Mn/Dy/Year [facility]Out[facility] Sep 17, 2021 10:00 [id number] Sep 17, 2021 2:00 [id number] The Intake and Output Totals for the [...] the note. I personally evaluated the patient [id number] Electronic Signatures: Fidel Maciel (Resident)) (Signed 18-Sep-2021 06:55) Authored: Service, Subjective Data, Objective Data, Assessment and Plan, Note Completion Lex Frederick) (Signed 19-Sep-2021 10:18) Authored: Note Completion Co-Signer: Service, Subjective Data, Objective Data, Assessment and Plan, Note Completion Last Updated: 19-Sep-2021 10:18 by Lex Frederick) Normal [facility] Laboratory - Chemistry and C hemistry - [...] (RBC) [Ratio] 12.4 % See Below MG-Gastroen terology-Orsendo lwell 6 [facility] [...] dated 10/07/2020. MRI dated 12/11/2020 ACCESSION NUMBER(S): [id number] ORDERING CLINICIAN: ANGELO JUAREZ TECHNIQUE: Thin cut [...] as stated. This study was interpreted at [facility], [place], [place]. Electronically signed by: BOONE LAO MD Normal [facility] No Panel Informationon 09-18 0.0 {/100_WBC} 0.0-0.0 [...] Respiratory Rate15 breath per minute Blood Pressure Kwixdlwr26 mm/Hg Blood Pressure Kmyecjyjt31 mm/Hg COVID 19 Results in Last 7 [...] 18-Sep-2021 06:59 by Lian Zuleta (SANAZ) Normal [facility] Radiologyon 09-18-2021 XR Chest Single view Normal [...] - 4.9 MG-G astroen terology-[place] lwell 6 [facility] Work Phone: Comment on [...] >90 >90 MG-G astroen terology-[place]endo lwell 6 [facility] Work Phone: Comment on above: CALCULATIONS OF IVY MATED GFR ARE PERFORMED USING THE 2020 CKD-EPI STUDY REFIT EQUATION WITHOUT THE RACE VARIABLE FOR THE IDMS-TRACEABLE CREATININE METHODS.https://jasn.asnjournals.org/content/early /ASN.[id number] TH CHEST; 1 VIEWon 2 TH CHEST; 1 VIEW Patient Name: MORALES LEE STUDY: CHEST; 1 VIEW; 09/18/2021 2:38 pm INDICATION: s/p central line placement (right IJ double lumen) . COMPARISON: Radiograph dated 09/15/2021 ACCESSION NUMBER(S): [id number] ORDERING CLINICIAN: BRYAN MORA FINDINGS: Right IJ [...] Electronically signed by: LORELEI JOHNSTON MD Normal [facility] VENOUS FULL PANELon 09-18-19 22 Anion gap [Moles/Vol] 6 mmol/L Low 10 - 25 [facility] Comment on above: Performed By: #### V FPA3 #### [facility] [address] [place] [address] BASE EXCESS-BLOOD 3.9 mmol/L High -2.0 - 3.0 [facility] Comment on above: Performed By: #### V FPA3 #### [facility] [address] [place] [address] BICARB, CALCULATED 28.5 mmol/L High 22.0 - 26.0 [facility] Comment on above: Performed By: #### V FPA3 #### [facility] [address] [place] [address] CALCIUM,IONIZED 1.17 mmol/L Normal 1.10 - 1.33 [facility] Comment on above: Performed By: #### V FPA3 #### [facility] [address] [place] [address] Chloride [Moles/Vol] 103 mmol/L Normal 98 - 107 [facility] Comment on above: Performed By: #### V FPA3 #### [facility] [address] [place] [address] Glucose [Mass/Vol] 188 mg/dL High 74 - 99 [facility] Comment on above: Performed By: #### V FPA3 #### [facility] [address] [place] [address] Hematocrit (Bld) [Volume fraction] 39.0 % Normal 36.0 - 46.0 [facility] Comment on above: Performed By: #### V FPA3 #### [facility] [address] [place] [address] HGB,CALCULATED 13.3 g/dL Normal 12.0 - 16.0 [facility] Comment on above: Performed By: #### V FPA3 #### [facility] [address] [place] [address] Lactate [Moles/Vol] 1.2 mmol/L Normal 0.4 - 2.0 [facility] Comment on above: Performed By: #### V FPA3 #### [facility] [address] [place] [address] Oxygen (Bld) [Partial pressure] 56 mm[Hg] High 35 - 45 [facility] Comment on above: Performed By: #### V FPA3 #### [facility] [address] [place] [address] PATIENT TEMPERATURE 37.0 degrees C Normal [facility] Comment on above: Result Comment: NOTE : PATIENT RESULTS ARE NOT CORRECTED FOR TEMPERATURE. Performed By: #### V FPA3 #### [facility] [address] [place] [address] PCO2 42 mmHg Normal 41 - 51 [facility] Comment on above: Performed By: #### V FPA3 #### [facility] [address] [place] [address] pH (Bld) 7.44 [pH] High 7.33 - 7.43 [facility] Comment on above: Performed By: #### V FPA3 #### [facility] [address] [place] [address] Potassium [Moles/Vol] 4.1 mmol/L Normal 3.5 - 5.3 [facility] Comment on above: Performed By: #### V FPA3 #### [facility] [address] [place] [address] SO2 91 % High 45 - 75 [facility] Comment on above: Performed By: #### V FPA3 #### [facility] [address] [place] [address] Sodium [Moles/Vol] 133 mmol/L Low 136 - 145 [facility] Comment on above: Performed By: #### V FPA3 #### [facility] [address] [place] [address] CORONAVIRUS 2019, SCREEN ASY MPTOMATICon 09-17-2021 SARS-CoV-2 (COVID-19) RNA ADRIÁN+probe Ql (Unsp spec) Not detected Normal Not Detected [facility] Comment on above: Result Comment: . This test has received FDA Emergency Use Authorization (EUA) and has been verified by [facility] ([facility]). This test is only authorized for the duration of time that circumstances exist to justify the authorization of the emergency use of in vitro diagnostic tests for the detection of SARS-CoV-2 virus and/or diagnosis of COVID-19 infection under section 564(b)(1) of the Act, 21 U.S.C. 360bbb-3(b)(1), unless the authorization is terminated or revoked sooner. [facility] is certified under CLIA-88 as qualified to perform high complexity testing. Testing is performed in the [facility] located at [address] [place] [address]. SARS-CoV-2/Flu/RSV Multiplex Test: Fact sheet for providers: https://www.fda.gov/media/260695/download Fact sheet for patients: https://www.fda.gov/media/548986/download Performed By: #### C OVSC ####[id number] [place] [address] Lab Specimen Source Nasal, Nasopharyngeal Normal [facility] Comment on above: Performed By: #### C OVSC ####[id number] [place] [address] Coronavirus 2019 RNA by PCR, Screening Asymptomticon 09-17-2021 Coronavirus 2019 RNA by PCR, Screening Asymptomtic Not detected Normal See Below MG-Gastroen terology-Rosendo lwell 6 [facility] Work Phone: Comment on above: SOURCE: Nasal, Nasop haryngealReference Range: Not Detected.This test has received FDA Emergency Use Authorization (EUA) and has been verified by [facility] ([facility]). This test is only authorized for the duration of time that circumstances exist to justify the authorization of the emergency use of in vitro diagnostic tests for the detection of SARS-CoV-2 virus and/or diagnosis of COVID-19 infection under section 564(b)(1) of the Act, 21 U.S.C. 360bbb-3(b)(1), unless the authorization is terminated or revoked sooner. [facility] is certified under CLIA-88 as qualified to perform high complexity testing. Testing is performed in the [facility] located at [address] [place] [address].SARS-CoV-2/Flu/RSV Multiplex Test: Fact sheet for providers: https://www.fda.gov/media/586293/downloadFact sheet for patients: https://www.fda.gov/media/333149/download Covid 19 Resultson 2 SARS-CoV-2 (COVID-19) RNA [...] [facility] to see if any of [...] or Naproxen (Aleve) can also be used. Dajx-axy-hmagjey cough and cold medicines can be used according to the instructions on the package. Some utxh-bpm-ijscwgf medicines also contain acetaminophen. Make sure you [...] water are not available, use alcohol-based hand farm facility manager. Avoid touching your eyes, nose, and mouth [...] 24 mariella (more content not included)... Normal [facility] Daily Progress Note - Psychi vivianyon 09-17-2021 [...] pain but found it well-controlled on Dilaudid [employer] and 5/10 mg oxycodone. Pt is interested [...] he has been working (cardoza at a [employer]), but she looks forward to his arrival [...] her suboxone. Objective: Objective Information: T PRBPSpO2 Value36.65447797/9095% Date/Time09/17 4: 10: 10:: 10:00 Range(35.7C - 36.6C ) (81 - 89 ) (10 - 23 ) (73 - 117 )/ (43 - 90 ) (91% - 96% ) As of 17-Sep-2021 08:00:00, patient is on 3 L/min of oxygen via nasal cannula. Pain reported at 09/17 8:00: 8 = Severe ---- Intake and Output ----- Mn/Dy/Year TimeIntakeOutputNet Sep 17, 2021 6:00 [id number] Sep 16, 2021 2:00 [id number] The Intake and Output Totals for the last 24 hours are: IntakeOutputNet [id number] Mental Status Exam: General: Awake, lying in [...] a Da (more content not included)... [facility] Daily Progress Note-Neurosur jinny 09-17-2021 Daily Progress Note-Neurosurgery Service: Neurosurgery Subjective Data: MORALES LEE is a 46 year old Female who is Hospital Day # 3. Objective Data: Objective Information: T PRBPSpO2 [id number]/4393% Date/Time09/16 18:541/12 18:5409/16 18:5409/16 18:5409/16 18:54 Range(35.7C - 36.4C ) (81 - 91 ) (15 - 24 ) (87 - 118 )/ (43 - 84 ) (91% - 96% ) As of 16-Sep-2021 18:54:00, patient is on 2 L/min of oxygen via nasal cannula. Pain reported at 09/16 16:34: 10 = Severe ---- Intake and Output ----- Mn/Dy/[facility] Sep 16, 2021 2:00 [id number] Physical Exam by System: Neurological: A&Ox3 RUE [...] the note. I personally evaluated the patient [id number] Comments/ Additional Findings I again explained to [...] Updated: 19-Sep-2021 10:16 by Lex Frederick) Normal [facility] HCG,URINEon 09-17-2021 Beta HCG ( test) Ql (U) Negative Normal Negative [facility] Comment on above: Performed By: #### A FPA3 #### [facility] [address] [place] [address] Laboratory - Blood bankon ABO group Nom [...] 09-17-2021 REQUEST-LEUKOREDUCED RED CELLS ORDER RECD [facility] Comment on above: Performed By: #### O INSTRUMENT MAKER APPRENTICE #### [facility] [address] [place] [address] TYPE + SCREENon 09-17-2021 ABO TYPE O Normal [facility] Comment on above: Performed By: #### T +S #### [facility] [address] [place] [address] RH TYPE Positive Normal [facility] Comment on above: Performed By: #### T +S #### [facility] [address] [place] [address] Urine Teston 09-17 HCG ( test) Ql (U) Negative Negative [facility]-Gastroen terology-[place] [facility] 6 [facility] Work Phone: BNPon 09-16-2021 Natriuretic peptide B (Bld) [Mass/Vol] 37 pg/mL Normal 0 - 99 [facility] Comment on above: Result Comment: . <1 [...] Performed By: #### A FPA3 #### [facility] [address] [place] [address] CBC AND DIFFERENTIALon 09-16 % AUTOMATED IMMATURE GRAN 0.5 % Normal 0.0 - 0.9 [facility] Comment on above: Result Comment: Jaleesa ture Granulocyte Count (IG) includes promyelocytes, myelocytes and metamyelocytes but does not include bands. Percent differential counts (%) should be interpreted in the context of the absolute cell counts (cells/L). Performed By: #### C BCDF ####[id number] [place] [address] Basophils (Bld) [#/Vol] 0.04 10*3/uL Normal 0.00 - 0.10 [facility] Comment on above: Performed By: #### C BCDF ####[id number] [place] [address] Basophils/100 WBC (Bld) 0.5 % Normal 0.0 - 2.0 [facility] Comment on above: Performed By: #### C BCDF ####[id number] [place] [address] Eosinophils (Bld) [#/Vol] 0.26 10*3/uL Normal 0.00 - 0.70 [facility] Comment on above: Performed By: #### C BCDF ####[id number] [place] [address] Eosinophils/100 WBC (Bld) 3.0 % Normal 0.0 - 6.0 [facility] Comment on above: Performed By: #### C BCDF ####[id number] [place] [address] Erythrocyte distribution width (RBC) [Ratio] 13.0 % Normal 11.5 - 14.5 [facility] Comment on above: Performed By: #### C BCDF ####[id number] [place] [address] Hematocrit (Bld) [Volume fraction] 42.7 % Normal 36.0 - 46.0 [facility] Comment on above: Performed By: #### C BCDF ####[id number] [place] [address] Hemoglobin (Bld) [Mass/Vol] 14.1 g/dL Normal 12.0 - 16.0 [facility] Comment on above: Performed By: #### C BCDF ####[id number] [place] [address] Lymphocytes (Bld) [#/Vol] 3.17 10*3/uL Normal 1.20 - 4.80 [facility] Comment on above: Performed By: #### C BCDF ####[id number] [place] [address] Lymphocytes/100 WBC (Bld) 37.2 % Normal 13.0 - 44.0 [facility] Comment on above: Performed By: #### C BCDF ####[id number] [place] [address] MCHC (RBC) [Mass/Vol] 33.0 g/dL Normal 32.0 - 36.0 [facility] Comment on above: Performed By: #### C BCDF ####[id number] [place] [address] MCV (RBC) [Entitic vol] 91 fL Normal 80 - 100 [facility] Comment on above: Performed By: #### C BCDF ####[id number] [place] [address] Monocytes (Bld) [#/Vol] 0.47 10*3/uL Normal 0.10 - 1.00 [facility] Comment on above: Performed By: #### C BCDF ####[id number] [place] [address] Monocytes/100 WBC (Bld) 5.5 % Normal 2.0 - 10.0 [facility] Comment on above: Performed By: #### C BCDF ####[id number] [place] [address] Neutrophils (Bld) [#/Vol] 4.55 10*3/uL Normal 1.20 - 7.70 [facility] Comment on above: Performed By: #### C BCDF ####[id number] [place] [address] Neutrophils/100 WBC (Bld) 53.3 % Normal 40.0 - 80.0 [facility] Comment on above: Performed By: #### C BCDF ####[id number] [place] [address] NUCLEATED RBC 0.0 /100 WBC Normal 0.0-0.0 [facility] Comment on above: Performed By: #### C BCDF ####[id number] [place] [address] Platelets (Bld) [#/Vol] 278 10*3/uL Normal 150 - 450 [facility] Comment on above: Performed By: #### C BCDF ####[id number] [place] [address] RBC 4.70 x10E12/L Normal 4.00 - 5.20 [facility] Comment on above: Performed By: #### C BCDF ####[id number] [place] [address] WBC (Bld) [#/Vol] 8.5 10*3/uL Normal 4.4 - 11.3 [facility] Comment on above: Performed By: #### C BCDF ####[id number] [place] [address] COAGULATION SCREENon 022 aPTT Coag (Bld) [Time] 31 s Normal 26 - 39 [facility] Comment on above: Result Comment: Note new reference range as of 08/04/2021 at 10:00am. Performed By: #### V FPA3 #### [facility] [address] [place] [address] PT Coag (PPP) [Time] 11.6 s Normal 9.8 - 13.4 [facility] Comment on above: Result Comment: Note new reference range as of 08/04/2021 at 10:00am. Performed By: #### V FPA3 #### [facility] [address] [place] [address] PT, INR 1.0 Normal 0.9 - 1.1 [facility] Comment on above: Performed By: #### V FPA3 #### [facility] [address] [place] [address] Clinical Event Note-ADMISSIO N CLARIFICATIONon 09-16-2021 Clinical [...] and monitoring for withdrawal. Provider/Team Contact Info-Pager [id number] Electronic Signatures: Sharmin Guaman (CHIEF DEVELOPMENT OFFICER-WHITING CAN WORKER) (Signed 16-Sep-2021 12:07) Authored: Clinical Event Note Last Updated: 16-Sep-2021 12:07 by Sharmin Guaman (CHIEF DEVELOPMENT OFFICER-WHITING CAN WORKER) Normal [facility] Complete Blood Count + Diffe rentialon 09-16-2021 Basophils/100 WBC (Bld) 0.5 % 0.0 - 2.0 M [facility]-Gastroen [facility]ology-[place] 6 [facility] Work Phone: Erythrocyte distribution width (RBC) [Ratio] 13.0 % See Below MG-Gastroen terology-[place] [facility] 6 [facility] Work Phone: Comment on above: Reference Range: 11. 5 - 14.5 Hematocrit (Bld) [Volume fraction] 42.7 % See Below [facility]-Gastroen terology-[place] [facility] 6 [facility] Work Phone: Comment on above: Reference Range: 36. 0 - 46.0 Hemoglobin (Bld) [Mass/Vol] 14.1 g/dL See Below MG-Gastroen terology-[place] [facility] 6 I Work Phone: Comment on above: Reference Range: 12. 0 - 16.0 Lymphocytes/100 WBC (Bld) 37.2 % See Below [facility]-Gastroen terology-[place] [facility] 6 [facility] Work Phone: Comment on above: Reference Range: 13. 0 - 44.0 MCHC (RBC) [Mass/Vol] 33.0 g/dL See Below MG- Gastroen terology-[place] 6 [facility] Work Phone: Comment on above: Reference Range: 32. 0 - 36.0 MCV (RBC) [Entitic vol] 91 fL 80 - 100 M G-Gastroen terology-[place] [facility] 6 [facility] Work Phone: Monocytes/100 WBC [...] 0.0 {/100_WBC} 0.0-0.0 MG-Gastroen terology-[facility] 6 [facility] Work Phone: Consult-Painon 09-16-2021 [...] the note. I personally evaluated the patient [id number] Electronic Signatures: Chidi Lamar (Fellow)) (Signed 16-Sep-2021 08:54) Authored: History of Present Illness, Review Family/Social History and ROS, Allergies Aaron Fernandes (Resident)) (Signed 16-Sep-2021 15:24) Authored: Service, History of Present Illness, Review Family/Social History and ROS, Objective, Assessment/Recommendation s, Note Completion Chidi Dbobs) (Signed 16-Sep-2021 18:21) Authored: Assessment/Recommendation s, Note Completion Co-Signer: Assessment/Recommendation s, Note Completion Last Updated: 16-Sep-2021 18:21 by Chidi Dobbs () References: 1. Data Referenced From Consult - Psychiatry 15-Sep-2021 20:42 [facility] Consult-Perioperative Medici neon 09-16-2021 Consult-Perioperative Medicine Service: [...] penicillin: Unknown Objective: Objective Information: T PRBPSpO2 [id number]/8491% Date/Time09/16 11:131/12 12:4909/16 12:4909/16 12:4909/16 12:49 Range(36.3C [...] 100 mg (more content not included)... [facility] Cult, Urineon 09-16-2021 Bacteria identified Cx Nom (U) Abnormal [facility]-Gastroen terology-[place] Work Phone: Daily Progress Note-Neurosur jinny 09-16-2021 Daily Progress Note-Neurosurgery Service: Neurosurgery Subjective Data: MORALES LEE is a 46 year old Female who is Hospital Day # 3. Objective Data: Objective Information: T PRBPSpO2 Value36.0467760/6693% Date/Time09/16 1: 4: 4: 4: 4:00 Range(36.3C [...] in AM COWS psych recs SCD's, [facility] Attestation: Note Completion: I am a: [...] the note. I personally evaluated the patient [id number] Comments/ Additional Findings TO OR this Tuesday if medically optimized for T12 - Pelvis fusion and Instrumentation. Pain consult for management regrading Suboxone and pain control in the perioperative period. US LE MRI of the lumbar spine., Lex Frederick MD, [facility], FAANS Director - Minimally Invasive Spine Surgery [facility] Data Coder Operator of Neurological Surgery [facility] [employer] [place], [place] Electronic Signatures: Fidel Maciel (Resident)) (Signed 16-Sep-2021 04:33) Authored: Service, Subjective Data, Objective Data, Assessment and Plan, Note Completion Lex Frederick) (Signed 16-Sep-2021 10:22) Authored: Note Completion Co-Signer: Service, Subjective Data, Objective Data, Assessment and Plan, Note Completion Last Updated: 16-Sep-2021 10:22 by Lex Frederick) [facility] EMR ADDONon 09-16-2021 ADDON CONFIRMATION REQUEST REC'D [facility] Comment on above: Performed By: #### E [...] above: . <100 pg/mL - Heart failure [id number] pg/mL - Intermediate probability of acute heart. [...] [Mass/Vol] 3.5 g/dL Normal 3.4 - 5.0 [facility] Comment on above: Performed By: #### R ENAL #### [facility] [address] [place] [address] Anion gap [Moles/Vol] 14 mmol/L Normal 10 - 20 [facility] Comment on above: Performed By: #### R ENAL #### [place] [address] [place] [address] Calcium [Mass/Vol] 8.9 mg/dL Normal 8.6 - 10.6 [facility] Comment on above: Performed By: #### R ENAL #### [facility] [address] [place] [address] Chloride [Moles/Vol] 101 mmol/L Normal 98 - 107 [facility] Comment on above: Performed By: #### R ENAL #### [facility] [address] [place] [address] Creatinine [Mass/Vol] 0.63 mg/dL Normal 0.50 - 1.05 [facility] Comment on above: Performed By: #### R ENAL #### [facility] [address] [place] [address] eGFR FEMALE >90 Normal >90 [facility] Comment on above: Result Comment: CALC ULATIONS OF ESTIMATED GFR ARE PERFORMED USING THE 2020 CKD-EPI STUDY REFIT EQUATION WITHOUT THE RACE VARIABLE FOR THE IDMS-TRACEABLE CREATININE METHODS. https://jasn.asnjournals.org/content//ASN.742 3543661 Performed By: #### R ENAL #### [facility] [address] [place] [address] Glucose [Mass/Vol] 88 mg/dL Normal 74 - 99 [facility] Comment on above: Performed By: #### R ENAL #### [facility] [address] [place] [address] HCO3 (Bld) [Moles/Vol] 29 mmol/L Normal 21 - 32 [facility] Comment on above: Performed By: #### R ENAL #### [facility] [address] [place] [address] Phosphate [Mass/Vol] 3.4 mg/dL Normal 2.5 - 4.9 [facility] Comment on above: Result Comment: The performance characteristics of phosphorus testing in heparinized plasma have been validated by the individual laboratory site where testing is performed. Testing on heparinized plasma is not approved by the FDA; however, such approval is not necessary. Performed By: #### R ENAL #### [facility] [address] [place] [address] Potassium [Moles/Vol] 3.7 mmol/L Normal 3.5 - 5.3 [facility] Comment on above: Performed By: #### R ENAL #### [facility] [address] [place] [address] Sodium [Moles/Vol] 140 mmol/L Normal 136 - 145 [facility] Comment on above: Performed By: #### R ENAL #### [facility] [address] [place] [address] Urea nitrogen [Mass/Vol] 10 mg/dL Normal 6 - 23 [facility] Comment on above: Performed By: #### R ENAL #### [facility] [address] [place] [address] Renal Function Panelon 09-16 Albumin BCP dye [...] - 5.3 [facility]- Gastroen terology-[place] 6 [facility] Work Phone: Sodium [Moles/Vol] 140 mmol/L 136 - 145 MG-Gas troen terology-[place] 6 I Work Phone: Urea nitrogen [Mass/Vol] 10 mg/dL 6 - 23 [facility]astroen terology-[place] [facility] 6 I Work Phone: Renal Function Panel >90 >90 MG-G astroen terology-[place] 6 [facility] Work Phone: Comment on above: CALCULATIONS OF IVY MATED GFR ARE PERFORMED USING THE 2020 CKD-EPI STUDY REFIT EQUATION WITHOUT THE RACE VARIABLE FOR THE IDMS-TRACEABLE CREATININE METHODS.https://jasn.asnjournals.org/content/ /ASN.8931355458 [facility] 09-16-2021 BACTERIA 2+ /HPF Abnormal [facility] Comment on above: Performed By: #### U AMIC ####[id number] [place] [address] Mucus Ql (Urine sed) 1+ /LPF Normal [facility] Comment on above: Performed By: #### U AMIC ####[id number] [place] [address] RBC 3 /HPF Normal 0-5 [facility] Comment on above: Performed By: #### U AMIC ####[id number] [place] [address] SQUAMOUS EPITH. CELLS 2 /HPF Normal [facility] Comment on above: Performed By: #### U AMIC ####[id number] [place] [address] WBC 115 /HPF Abnormal 0-5 [facility] Comment on above: Performed By: #### U AMIC ####[id number] [place] [address] URINALYSISon 09-16-2021 Appearance (U) HAZY Normal CLEAR [facility] Comment on above: Performed By: #### U A ####[id number] [place] [address] Bilirubin Ql (U) Negative Normal NEGATIVE [facility] Comment on above: Performed By: #### U A ####[id number] [place] [address] Color (U) YELLOW Normal STRAW,YELL OW [facility] Comment on above: Performed By: #### U A ####[id number] [place] [address] Glucose Ql (U) Negative Normal NEGATIVE [facility] Comment on above: Performed By: #### U A ####[id number] [place] [address] Hemoglobin Ql (U) Negative Normal NEGATIVE [facility] Comment on above: Performed By: #### U A ####[id number] [place] [address] Ketones Ql (U) Negative Normal NEGATIVE [facility] Comment on above: Performed By: #### U A ####[id number] [place] [address] Leukocyte esterase Test strip Ql (U) LARGE (3+) Abnormal NEGATIVE [facility] Comment on above: Performed By: #### U A ####[id number] [place] [address] Nitrite Ql (U) Positive Abnormal NEGATIVE [facility] Comment on above: Performed By: #### U A ####[id number] [place] [address] pH (U) 6.0 [pH] Normal 5.0 - 8.0 [facility] Comment on above: Performed By: #### U A ####[id number] [place] [address] Protein Ql (U) Negative Normal NEGATIVE [facility] Comment on above: Performed By: #### U A ####[id number] [place] [address] Specific gravity (U) [Rel density] 1.011 Normal 1.005 - 1.035 [facility] Comment on above: Performed By: #### U A ####[id number] [place] [address] Urobilinogen (U) [Mass/Vol] 2.0 mg/dL High 0.0 - 1.9 [facility] Comment on above: Result Comment: Due to [...] positive urobilinogen. Performed By: #### U A ####[id number] [place] [address] URINE CULTURE,BACTERIALon URINE CULTURE,BACTERIAL PATIENT: Fay LEE LOCATION: [facility]#: [id number] : 71 AGE: SEX: F ORDERED BY: [...] DEPENDENT NS=NONSUSCEPTIBLE X=REPORTED IN ERROR ___ Normal [facility] Comment on above: Performed By: #### A FPA3 #### [facility] [address] [place] [address] Urinalysison 09-16-2021 Color (U) YELLOW See Below MG-Gastroen [employer]-[facility] Work Phone: Comment on above: Reference Range: STR AW,YELLOW Glucose Ql (U) Negative NEGATIVE MG-Gastroe n terology-[place] 6 [facility] Work Phone: Ketones Ql (U) Negative NEGATIVE MG-Gastroe n terology-[facility] 6 [facility] Work Phone: Leukocyte esterase Test strip Ql (U) LARGE (3+) Abnormal NEGATIVE [facility]-Gastroen terology-[place] [facility] 6 I Work Phone: pH (U) 6.0 [pH] 5.0 - 8.0 MG-Gastroen terology-[place] 6 I Work Phone: Protein (U) [Mass/Vol] Negative NEGATIVE MG -Gastroen terology-[place] [facility] 6 I Work Phone: RBC (U) [#/Vol] Negative NEGATIVE MG-Gastro en terology-[facility] 6 [facility] Work Phone: Specific gravity (U) [Rel density] 1.011 1 See Below [facility]-Gastroen terology-[facility] 6 [facility] Work Phone: Comment on above: Reference Range: 1.0 05 - 1.035 Urinalysis Positive Abnormal NEGATIVE [facility]-Gastroen terology-[facility] 6 [facility] Work Phone: Urinalysis 2.0 mg/dL above high threshold 0.0 - 1.9 [facility]-Gastroen terology-[facility] 6 [facility] Work Phone: Comment on [...] Urinalysis Negative NEGATIVE [facility]astroen terology-[place] 6 [facility] Work Phone: Urinalysis HAZY CLEAR [facility]-Gastroen terology-[place] 6 [facility] Work Phone: Urinalysis, Microscopicon [...] 09-16-2021 VAS LAB Venous Duplex Ultrasound DVT [place] [address] and Vascular Lab Report Lower Venous Duplex Ultrasound Patient Name: MORALES LEE Reading Physician: [id number] Arjun Romero MD, RPVI Study Date: 09/16/2021 Referring Physician: [id number] HARRISON RAGSDALE MRN/PID: [id number] PCP: Accession/Order#: [id number] CC Report to: Date of : 1975 Technologist: Isai Burleson RVT Gender: F Technologist 2: Admission Status: Outpatient Location Performed: [facility] Diagnosis/ICD: M79.89-Left leg swelling; M79.89-Right leg swelling Procedure/CPT: 52643 Peripheral venous duplex scan for DVT complete-66813 CONCLUSIONS: Right Lower Venous: No evidence of [...] Spontaneous/Phasic Peroneal Yes None PTV Yes None [id number] Arjun Romero MD, YOLIE Final Normal [facility] V[facility] LAB Venous Duplex Ultra sound for DVTon 09-16-2021 [facility] Venous Duplex Ultrasound for DVT MG-Gastroen terology-[place] 6 I Work Phone: No Panel Informationon 09-15 [email or web address] ?RetrieveTestByDateTime?P ievjkxHC=[id number]&Date=1 09-05-2021&Time=19%3a14%3a 23%3a00&TestType=ECG&Site =1&OutputType=PDF&Ext=PDF MG-Gastroen terology-[place] [facility] 6 [...] I Work Phone: [email or web address] ?RetrieveTestByDateTime?P btiezxJN=[id number]&Date=1 09-05-2021&Time=19%3a14%3a 42%3a00&TestType=ECG&Site =1&OutputType=PDF&Ext=PDF [facility]-Gastroen terology-[place] [facility] 6 [...] (Advanced Practice Nurse) done by Concetta Shi ([facility]) Admission - Reconciliation: 15-Sep-2021 19:03 [...] to Incomplete: 30-Sep-2021 14:18 by: Concetta Shi ([facility]) Admission - Reconciliation: 30-Sep-2021 14:20 by: Concetta Shi ([facility]) Home MedicationsEnteredLast Dose TakenReconciled with current Order Reconciliation Comment/ Additional Information acetaminophen 325 mg oral tablet 2 tab(s) orally every 6 hours, as needed while having post operative [id number] Reviewed and Held Ambien CR 12.5 mg oral tablet, extended release 1 tab(s) oral fsi84-Byu-3201 Zolpidem Tablet (AMBIEN)DOSE = 10 mg Oral At BedtimeNotes from Pharmacy: Substitution For Zolpidem (Ambien CR) 12.5 mg at Bedtime Ambien CR 12.5 mg oral tablet, extended release continued as the inpatient order Zolpidem Ankle Foot Orthosis for foot [id number]-Glr-1067 Reviewed and Held betamethasone topical valerate 0.1% topical cream 1 milena topical prn 15-Sep-2021 EnteredInError Reviewed and Held Bilateral Prafos - orthotics to fit, - ICD 10: R26.0, M21.37, M62.81 30-Sep-2021 Reviewed and Held calcium-vitamin D 500 mg-200 intl units (5 mcg) oral tablet 1 tab(s) orally 4 times a ahi99-Dus-6594 Calcium 500 mg - Vitamin D 200 [...] times a day, as needed for muscle hgyuvu40-Vkf-6285 Cyclobenzaprine Tablet (FLEXERIL)DOSE = 10 mg Oral [...] topical 1% topical gel 1 milena topical kkj35-Oeb-0460 Reviewed and Held DULoxetine 30 mg oral [...] 2 tab(s) orally once a day, As Fxpobj45-Fbu-7274 Reviewed and Held gabapentin 800 mg oral tablet 1 tab(s) oral 3 times a ydq32-Gxi-0100 Gabapentin Capsule (NEURONTIN)DOSE = 800 mg Oral 3 Times a Day gabapentin 800 mg oral tablet continued as the inpatient order Gabapentin LEFT AFO -Orthotics to fit, ICD 10: M21.9756-Wyy-6917 Reviewed and Held lidocaine 5% topical film Apply topically to affected area once a day, As Needed near surgical incision for incisional pain 15-Sep-2021 EnteredInError Reviewed and Held lisinopril 20 mg oral tablet 1 tab(s) oral once a msj60-Mob-4966 Lisinopril Tablet (PRINIVIL, ZESTRIL)DOSE = 20 mg [...] - available over the counter at any ulswcqbt21-Lyy-9002 Reviewed and Held RIGHT AFO - Orthotics to fit, - M21.8776-Seh-8786 Reviewed and Held sennosides-docusate 8.6 mg-50 mg oral tablet 2 tab(s) orally 2 times a day , -Take while using oxycodone for post operative pain to prevent contipation 15-Sep-19 (more content not included)... [facility] Radiologyon 09-15-2021 XR Chest Single view Normal MG-G astroen terology-[facility] 6 [facility] Work Phone: TH CHEST 1 VIEWon 09-15-2021 TH CHEST 1 VIEW Patient Name: MORALES LEE STUDY: CHEST 1 VIEW; 09/15/2021 7:21 pm INDICATION: pre-op . COMPARISON: 12/26/2020. ACCESSION NUMBER(S): [id number] ORDERING CLINICIAN: TOSHA BORJA FINDINGS: CARDIOMEDIASTINAL SILHOUETTE: [...] Electronically signed by: Esther PEDERSON MD Normal [facility] Established Visit (Neurosurg ariana)on 09-08-2021 Established [...] in the Neurosurgery Spine Clinic at the [facility]. She is a very pleasant [...] obvious instability (more content not included)... Normal M-DAQ No Panel Informationon 09-08 Normal MG-Neurosur samsonFoxflyMiguel Work Phone: Please click on the link [...] and T6-L4 Fusion. COMPARISON: None. ACCESSION NUMBER(S): [id number] ORDERING CLINICIAN: LEX FREDERICK FINDINGS: Fused PA [...] Electronically signed by: JOSEPH SALAZAR MD Normal [facility] Tobacco Screening.on Fall risk assessment b) One or more fall s in the last year MG-Nuha daviesFoxflyMiguel Work Phone: Tobacco use status CPHS a) Yes M [employer] samsonEayunMiguel Work Phone: Established Visit (Neurosurg ariana)on 05-05-2021 Established Visit (Neurosurgery) History of Present Illness I just had the pleasure of seeing Mrs. Jesus villarreal in the Neurosurgery Spine Clinic at the [facility]. She is a very pleasant 45 -year-old female, who recently underwent a L1 Vertbrectomy and T6-L4 Fusion with me on 12/26/2020 and is status post 4 Months out from her surgery. Today's visit was a virtual visit with the patient at her home and myself at [facility]. She mentions that overall she is [...] in Ms. LEE care. Lex Frederick MD, [facility], FAANS Director - Minimally Invasive Spine Surgery [facility] Data Coder Operator of Neurological Surgery [facility] [employer] [place], [place] Some of this note was completed using [employer] voice recognition technology and sometimes the software [...] May 05 2021 9:18PM EST (Author) Normal M-DAQ Established Visit (Neurosurg ariana)on 01-08-2021 Established Visit [...] in the Neurosurgery Spine Clinic at the [facility]. She is a very pleasant [...] the further treatment plan. Lex Frederick MD, [facility], FAANS Director - Minimally Invasive Spine Surgery [facility] Rn Residential of Neurological Surgery [facility] [employer] [place], [place] Some of this note was completed using [employer] voice recognition technology and sometimes the software [...] Unspecified cord compression. COMPARISON: None. ACCESSION NUMBER(S): [id number] ORDERING CLINICIAN: LEX FREDERICK TECHNIQUE: Multiplanar and [...] spine. Electronically signed by: LENNY HAGER MD [facility] NR MRI L-SPINE WOon 12-12-19 21 NR MRI L-SPINE WO Patient Name: MORALES LEE STUDY: MRI L-SPINE WO; ; 12/11/2020 1:38 pm INDICATION: Lumbar Pain Scoliosis, unspecified Low back pain. COMPARISON: CT lumbar spine from 10/07/2020. MRI lumbar spine from 03/11/2016. ACCESSION NUMBER(S): [id number] ORDERING CLINICIAN: LEX FREDERICK TECHNIQUE: MRI of [...] multiple levels. This study was interpreted at [facility]. Electronically signed by: WESLEY CARBAJAL MD [facility] Initial Visit (Neurosurgery) on 10-28-2020 Initial [...] Status:Resulted - Preliminary,Retrospective By Protocol Authorization; Done: [id number] 12:00AM Reason: Unspecified for Xray Spine, entire thoracic/lumbar, include skull, cervical and sacral spine when performed, 2 or 3 view Radiologist to Determine Optimal Study : Y What are the patient's signs and symptoms? : Lumbar Pain SocHx: Current smoker Tobacco Use Screening; Status:Complete; Done: [id number] Patient Discussion/Summary It was a pleasure to see Ms. LEE at the Neurosurgery Spine Clinic at [facility]. Ms. 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 She now has been having severe symptoms [...] evaluated by another spine surgeon at the [facility] who recommended urgent surgery for her on [...] even walk (more content not included)... Normal [facility] 07-10-2019 CNPN Telephone (SPNMMN) ----- MORALES LEE ([id number]) 1975 F Date Time Provider Department 07/10/19 DIXIE TEE [facility] During your visit today, we recorded [...] Order(s):CONSULT TO ORTHOPAEDIC SURGERY [19991006] Order #: [id number]: 1 Prescriptions as of 07/10/2019 Sig: LISINOPRIL [...] Status:Closed by DIXIE TEE MD on 07/10/19 [facility] CNOVon 07-09-2019 CNOV Office Visit (SPNSMN ) ----- MORALES LEE ([id number]) 1975 F Date Time Provider Department 07/09/19 9:30 AM STEVENSON QAUN SPNSMN During your visit today, we recorded the following information about you: Pulse Respiration Blood pressure Weight 89/minute 18/minute 124/74 95.8 kg Height 1.499 m Stevenson Quan MD 07/09/2019 2:56 PM Signed SPINE SURGERY OUTPATIENT CONSULT SERVICE DATE: 07/09/2019 PCP: No primary care provider on file. REFERRING PROVIDER: Dixie Tee MD [id number] [facility] [id number] Consult requested for an opinion regarding the [...] file Gets together: Not on file Attends zoroastrianism service: Not on file Active member of [...] with the patient or the patient?s personal financial services sales representative. The patient has elected to schedule surgery at this time or intends to call the office with a surgical date. Shared decision making occurred while obtaining informed consent. 1. Imaging: Thoracic CT Without Contrast 2. Encouraged to call the office with any questions or concerns 3. 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] Other Visit Diagnosis:Spinal stenosis of thoracic region [M48.04] Order(s):CT THORACIC SPINE WO IVCON [[id number]] Order #: [id number] FUTURE Prescriptions as of 07/09/2019 Sig: LISINOPRIL [...] Status:Closed by STEVENSON QUAN MD on 07/09/19 [facility] OBSOLETEon 07-09-2019 OBSOLETE Procedure (EMGMN) ----- MORALES LEE ([id number]) 1975 F Date Time Provider Department 07/09/19 7:45 AM EMG 1 NEUR MAIN EMGMN During your visit today, we recorded the following information about you: Referring Provider: DIXIE TEE [[id number]] Allergies As of Date: 07/09/2019 Noted Allergy [...] upper limb [G56.21] Order(s):EMG(NEURO/NI) [[id number]] Order #: [id number]: 1 Prescriptions as of 07/09/2019 Sig: LISINOPRIL [...] by JHON EASON MD on 07/09/19 Normal [facility] [place] [facility] PROGRESSon 07-09-2019 PROGRESS HNO ID: [id number] Author: Stevenson Quan Service: ? Author Type: Physician Type: Progress Notes Filed: 07/09/2019 2:56 PM Note Text: SPINE SURGERY OUTPATIENT CONSULT SERVICE DATE: 07/09/2019 PCP: No primary care provider on file. REFERRING PROVIDER: Dixie Tee MD [address] [facility] [address] Consult requested for an opinion regarding the [...] file Gets together: Not on file Attends zoroastrianism service: Not on file Active member of [...] with the patient or the patient?s personal financial services sales representative. The patient has elected to [...] 09, 2019 TIME: 10:24 AM PAGER: Normal [facility] [place] [facility] OT-XR DEXA BONE DENSITY IMPO RTon 07-06-2019 OT-XR DEXA BONE DENSITY IMPORT Images were obtained outside of [facility] [id number] Normal [facility] [place] [facility] CASE MGT INIT [facility] 2018 CASE MGT INIT [facility] HNO ID: [id number] Author: Kimberly (Rn) MERA Dunaway Service: ? Author Type: Registered Nurse Type: Care Mgt Initial Assessment Filed: 06/20/2019 12:25 PM Note Text: CARE MANAGEMENT: ASSESSMENT AND DISCHARGE PLAN SERVICE DATE: 06/20/2019 SERVICE TIME: 12:21 PM PRIMARY CARE PHYSICIAN: No primary care provider on file. Phone: None ADMISSION STATUS: Observation Needs Prior to Discharge: To Be Determined MEDICAL: Patient/Practice Billing Associate Stated Goals: To have reduction in pain To have reduction in symptoms Health Insurance: BLUE CARD PPO Health Issues Impacting Discharge Plan: Chronic neck pain Last Discharge Date: 06/20/19 Is this Within the Past 30 days? No Advance Directive: Current Advance Directive: None Production Team Advisor Attempted to Assist with AD Completion: Yes [...] None Has the Patient Been in a Longterm Facility in the Past 30 days? N/A SOCIAL: Living Arrangement: Home Lives With: Spouse Financial Resources: Disabled Primary Contact: Extended Emergency Contact Information Primary Emergency Contact: Belinda Lee Address: [address] [place] [address] [facility] Mobile Relation: Spouse Supportive: Yes Other Important [...] 0 I feel financially burdened by my pjc-es-skpwyg expenses for my prescription medication: Disagree completely [...] 20, 2019 TIME: 12:21 PM PAGER/CONTACT #: [phone] Normal [facility] CBCon 06-20-2019 Erythrocyte distribution width (RBC) [Ratio] 12.6 % Normal 11.5-15.0 [facility] Comment on above: Performed By: #### C BC #### [place] [phone] Hematocrit (Bld) [Volume fraction] 48.7 % High 36.0-46.0 [facility] Comment on above: Performed By: #### C BC #### [place] [phone] Hemoglobin (Bld) [Mass/Vol] 16.8 g/dL High 11.5-15.5 [facility] Comment on above: Performed By: #### C BC #### [place] [phone] MCH (RBC) [Entitic mass] 31.1 pG Normal 26.0-34.0 [facility] Comment on above: Performed By: #### C BC #### [place] [phone] MCHC (RBC) [Mass/Vol] 34.5 g/dL Normal 30.5-36.0 [facility] Comment on above: Performed By: #### C BC #### [place] [phone] MCV (RBC) [Entitic vol] 90.0 fL Normal 80.0-100.0 [facility] Comment on above: Performed By: #### C BC #### [place] [phone] Platelet mean volume (Bld) [Entitic vol] 10.6 fL Normal 9.0-12.7 [facility] Comment on above: Performed By: #### C BC #### [place] [id number] [place] [address] Platelets (Bld) [#/Vol] 334 10*3/uL Normal 150-400 [facility] Comment on above: Performed By: #### C BC #### [place] [address] RBC (Bld) [#/Vol] 5.41 10*6/uL High 3.90-5.20 [facility] Comment on above: Performed By: #### C BC #### [place] [address] WBC (Bld) [#/Vol] 10.85 10*3/uL Normal 3.70-11.00 [facility] Comment on above: Performed By: #### C BC #### [place] [address] CONSULTon 06-20-2019 CONSULT HNO ID: [id number] Author: Evelyn Resendez Service: Pain Management Author Type: Nurse Practitioner Type: Consults Filed: 06/20/2019 2:52 PM Note Text: Chronic Pain Management Consult Patient Name: Morales Lee Date: June 20, 2019 Time: 1:51 PM Requesting Provider: Talita Wesley Reason for Consult: acute on chronic neck pain; on suboxone ASSESSMENT : Thank you for the opportunity to see Mroales Lee a 44 year old female; pertinent [...] controlled substances - including suboxone - from [facility]. Of note, pt has followed once [...] me to leave. She is now leaving [place]. 3. Will sign off _ SUBJECTIVE CHIEF [...] activity was identified. 06/20/2019 by Evelyn Resendez APRN.WHITING CAN WORKER PAST MEDICAL HISTORY Diagnosis Date - Degenerative [...] file Gets together: Not on file Attends zoroastrianism service: Not on file Active member of [...] 20, 2019 TIME: 8:24 AM PAGER/CONTACT #: [phone] (M-F 8-5) [facility] CT BRAIN WO IVCONon 06-20-[address] BRAIN WO IVCON * * *Final Report* * * DATE OF EXAM: Jun 20 2019 1:31AM [facility] 0504 - CT BRAIN WO IVCON [...] No large cortical infarct or acute hemorrhage. Body Corporate Manager: ADITYA Transcribe Date/Time: Jun 20 2019 1:33A Dictated by : DAVONTE MOY MD This examination was interpreted and the report reviewed and electronically signed by: DAVONTE MOY MD on Jun 20 2019 1:35AM EST [id number] [facility] ECG COMPLETEon 06-20-2019 ECG COMPLETE NAME : MORALES LEE PID : [id number] : 1975 Gender : Female Race : ORD : [id number] Procedure Date : Jun 19 2019 23:57:03 Edit Date : Jun 20 2019 07:51:18 Diagnosis:Sinus rhythm Normal ECG no STEMI 1200a Confirmed by MD ARREDONDO LISA ([id number]), editor book FOREST WALTON ([id number]) on 06/20/2019 7:51:18 AM Ventricular Rate : 85 BPM Atrial Rate : 85 BPM P-R Interval : 137 ms QRS Duration : 91 ms Q-T Interval : 365 ms QTC Calculation(Bazett) : 434 ms P [place] : 51 degrees R [place] : -13 degrees T [place] : 61 degrees Test Reason : Chest Pain Location : 302 : ED AVED-1 Overread By : MD ARREDONDO LISA Edited By : FOREST WALTON Referred By : , Acquired by : [id number], [facility] ED NOTEon 06-20-2019 ED NOTE HNO ID: [id number] Author: Yuki Mckenzie) MERA Cruz Service: ? Author Type: Registered Nurse Type: ED Notes Filed: 06/20/2019 1:40 AM Note Text: Patient got CT, it is still pending and Jessie MESA said ok to transfer to [place] with out results pending. Patient agreeing and understanding of transfer. updated on POC and transfer via telephone. DM here to take patient at this time. Pain is not improved at time of transfer. [facility] ED NOTE HNO ID: [id number] Author: Yuki Cruz RN Service: ? Author Type: Registered Nurse Type: ED Notes Filed: 06/20/2019 1:15 AM Note Text: Clean catch urine specimen obtained and sent. [facility] ED NOTE HNO ID: [id number] Author: Yuki Cruz RN Service: ? Author [...] time with getting transferred to another facility. [facility] ED NOTE HNO ID: [id number] Author: Yuki Mckenzie) MERA Cruz Service: ? Author Type: Registered Nurse Type: ED Notes Filed: 06/20/2019 3:28 AM Note Text: Patient stated Valium did not help. She continues to be in pain and upset. She wanted to speak with someone in charge and update on POC. Normal [facility] HISTORY PHYSICALon 9 HISTORY PHYSICAL HNO ID: [id number] Author: Talita Wesley RN Service: General Internal [...] tightness that is constant. Notices a decreased muck miner strength and weakness in left hand. She [...] pressure, palpitations, leg swelling. Denies hx of [place]. GI: Denies nausea, vomiting, diarrhea, abdominal pain, [...] rotation 40/80% Decreased left C5-C7 sensation. Left muck miner strength 2/5. Right muck miner strength 5/5. UE DTR intact and equal. [...] tightness into left arm, weak left hand muck miner strength, and worsening severity of numbness/tingling -Afebrile [...] Needs confirmed with patient pharmacy. Patient uses [facility] in [place], [place]. Patient provided #[phone]. Will call in am to confirm dose. Nicotine Abuse Assessment AND Plan: Smokes 1 1/2 PPD for 20 years. Smoking cessation advised. Nicotine patch ordered. Medication and Non-Pharmacologic VTE Prophylaxis/Anticoagulant s VTE Prophylaxis: VTE prophylaxis appropriate SIGNATURE: Talita Wesley APRN.CNP PATIENT NAME: Morales Lee DATE: June 20, 2019 TIME: 2:58 AM PAGER/CONTACT #: U # [phone] [facility] NURSING PROGon 06-20-2019 NURSING PROG HNO ID: [id number] Author: Austyn (Rn) MERA Berumen Service: Nursing Author Type: Registered Nurse Type: Nursing Progress Note Filed: 06/20/2019 3:10 PM Note Text: Nursing Progress Note Patient Name: Morales Lee Patient Location: [id number] -02 Daily Note:06/20/2019 -pt is upset regarding [...] note was completed by: AUSTYN BERUMEN RN [facility] NURSING PROG HNO ID: [id number] Author: Austyn Mckenzie) MERA Berumen Service: Nursing Author Type: Registered Nurse Type: Nursing Progress Note Filed: 06/20/2019 8:10 AM Note Text: Nursing Progress Note Patient Name: Morales Lee Patient Location: [id number] -02 Daily Note:06/20/2019 -assumed care of patient, pt is requesting her suboxone. We have to call to verify dosage. -MERA Acosta called pharmacy provided by night IDENTIFICATION AND RECORDS COMMANDER and the pharmacy does not open until 9am. We will call back to verify dose later. -Dr. Kwon called to speak with this RN, he will be in to see the patient later today. This note was completed by: AUSTYN BERUMEN RN [facility] NURSING PROG HNO ID: [id number] Author: Guadalupe Herbert RN Service: ? Author Type: Registered Nurse Type: Nursing Progress Note Filed: 06/20/2019 4:33 AM Note Text: Nursing Progress Note Patient Name: Morales Lee Patient Location: [id number] -02 Daily Note:AANDO x 3. C/O left [...] note was completed by: Guadalupe Herbert RN [facility] PROGRESSon 06-20-2019 PROGRESS HNO ID: [id number] Author: Sedrick Martin Service: General Internal Medicine [...] rales. Cor:RSR, no murmurs. 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 DATA: Diagnostic tests [...] VTE Prophylaxis/Anticoagulant s 06/20/19399 pneumatic compression stockings (ks,pa) 06/20/19399 activity - mobilize patient ([place], [place]) VTE Prophylaxis: appropriate SIGNATURE: Sedrick Martin MD PATIENT NAME: Morales Lee DATE: June 20, 2019 TIME: 10:41 AM PAGER: [facility] PROGRESS HNO ID: [id number] Author: Sedrick Martin Service: General Internal Medicine Author Type: Physician Type: Progress Notes Filed: 06/20/2019 8:25 AM Note Text: As per Pain Management Consult still pending, I was notified by Pain Management to resume the pt.' s home Suboxone dosage until pt. Seen later today. Normal [facility] Troponin Ton 06-20-2019 Troponin T.cardiac [Mass/Vol] ug/L Normal 0.000-0.[address] [place] [address] Comment on above: Performed By: #### T NT #### [place] [address] Troponin T.cardiac [Mass/Vol] ug/L Normal 0.000-0.[address] [place] [address] Comment on above: Performed By: #### T NT #### [place] [phone] Basic Metabolic Panlon 06-19 Anion gap [Moles/Vol] 14 mmol/L Normal 9-18 [facility] Calcium [Mass/Vol] 10.3 mg/dL High 8.5-10.2 [facility] Chloride [Moles/Vol] 96 mmol/L Low 97-105 [facility] CO2 [Moles/Vol] 29 mmol/L Normal 22-30 [facility] Creatinine [Mass/Vol] 0.59 mg/dL Normal 0.58-0.96 [facility] eGFR- Amer. >60 Normal [facility] GFR/1.73 sq M predicted among non-blacks MDRD (S/P/Bld) [Vol rate/Area] mL/min/{1.73_m2} Normal [facility] Comment on above: Result Comment: [...] GFR. Glucose [Mass/Vol] 114 mg/dL High 74-99 [facility] Comment on above: Result Comment: The [place] Diabetes Association (ADA) provides guidance for cutoff [...] of Medical Care in Diabetes 2016, [place] Diabetes Association. Diabetes Care. 2016.39(Suppl 1). Potassium [Moles/Vol] 3.7 mmol/L Normal 3.7-5.1 [facility] Sodium [Moles/Vol] 139 mmol/L Normal 136-144 [facility] Urea nitrogen [Mass/Vol] 7 mg/dL Normal 7-21 [facility] CBC and Differentialon 06-19 Abs Baso 0.09 k/uL Normal <0.11 [facility] Abs [place] 0.61 k/uL Normal <0.87 [facility] Abs Neut 7.56 k/uL High 1.45-7.50 [facility] Absolute nRBC <0.01 Normal <0.01 [facility] Basophils/100 WBC (Bld) 0.7 % Normal [facility] DTYPE Auto Diff Normal [facility] Eosinophils (Bld) [#/Vol] 0.25 10*3/uL Normal <0.46 [facility] Eosinophils/100 WBC (Bld) 1.9 % Normal [facility] Erythrocyte distribution width (RBC) [Ratio] 12.0 % Normal 11.5-15.0 [facility] Hematocrit (Bld) [Volume fraction] 52.6 % High 36.0-46.0 [facility] Hemoglobin (Bld) [Mass/Vol] 18.0 g/dL High 11.5-15.5 [facility] Lymphocytes (Bld) [#/Vol] 4.67 10*3/uL High 1.00-4.00 [facility] Lymphocytes/100 WBC (Bld) 35.4 % Normal [facility] MCH (RBC) [Entitic mass] 30.0 pG Normal 26.0-34.0 [facility] MCHC (RBC) [Mass/Vol] 34.2 g/dL Normal 30.5-36.0 [facility] MCV (RBC) [Entitic vol] 87.7 fL Normal 80.0-100.0 [facility] Monocytes/100 WBC (Bld) 4.6 % Normal [facility] Neutrophils/100 WBC (Bld) 57.4 % Normal [facility] NRBCs 0.0 /100 WBC Normal 0 [facility] Platelet mean volume (Bld) [Entitic vol] 10.1 fL Normal 9.0-12.7 [facility] Platelets (Bld) [#/Vol] 370 10*3/uL Normal 150-400 [facility] RBC (Bld) [#/Vol] 6.00 10*6/uL High 3.90-5.20 [facility] WBC (Bld) [#/Vol] 13.18 10*3/uL High 3.70-11.00 [facility] ED NOTEon 06-19-2019 ED NOTE HNO ID: [id number] Author: Yuki WilksRn) MERA Cruz Service: ? Author Type: Registered Nurse Type: ED Notes Filed: 06/20/2019 3:27 AM Note Text: Patient has requested valium, she says that she takes it at home. Biago updated. Normal [facility] ED NOTE HNO ID: [id number] Author: Yuki WilksRn) MERA Cruz Service: ? Author Type: Registered Nurse Type: ED Notes Filed: 06/20/2019 3:27 AM Note Text: Patient is complaining of nausea. She is requesting her saboxon as well and Biago was updated on request. [facility] ED NOTE HNO ID: [id number] Author: Yuki WilksRn) MERA Cruz Service: ? Author Type: Registered Nurse Type: ED Notes Filed: 06/19/2019 7:54 PM Note Text: Said that after her surgery in 2016 her left pinky and ring finger are numb but she said lately her other fingers on that hand have been getting numb as well. [facility] ED NOTE HNO ID: [id number] Author: Vanessa WilksRn) MERA Ruiz Service: ? Author Type: Registered Nurse Type: ED Notes Filed: 06/19/2019 6:48 PM Note Text: Patient has chronic neck pain for three years. Saw spine doctor 06/12/2019 for the same had x rays. Denies any new injury. States pain goes into left arm. Arrived via wheelchair [facility] ED PROV NOTEon 06-19-2019 ED PROV NOTE HNO ID: [id number] Author: Tracy Arredondo Service: Emergency Medicine Author [...] light touch over bilateral lower extremities. 3/5 muck miner, bicep, tricep strength over LUE. Decreased sensation to light touch over left upper extremity in median, radial, and ulnar nerve distribution. 5/5 muck miner, bicep, tricep strength of R UE. Skin: [...] neurosurgical consult as previous notes from her adapted physical education specialist recommend obtaining EMG and possible further [...] a neurosurgical consult she warrants transfer to [facility] for further management of her condition. We have low suspicion for stroke at this time as pain appears to be radicular in nature and she has had worsening progression of her symptoms with documented notes from spine (Dr. Álvarez) suggesting this worsening pain and numbness. The WHITING CAN WORKER, Talita, at [employer] recommended we obtain a CT brain and she must rule out any acute intercranial abnormality that may be contributing to the patient's symptoms. Therefore, this study was ordered and will be followed up by the night team especially if there is any acute intracranial abnormality. As long as there is no acute intracranial abnormality she will be transferred to [facility] for further evaluation and management of her condition. Patient voiced understanding was in agreement with the above plan. This patient's case was discussed with Dr. Arredondo who personally evaluated the patient supervised her care. The patient was TRANSFERRED to: [facility] Condition at time of disposition: stable SIGNATURE: NORMA Montgomery (Pa) 06/20/19 0026 Attending Note I have personally performed a face to face assessment of the patient and have reviewed the PA/CUSTOM MARINE CANVAS FABRICATOR note. My schofield findings include: History is [...] of 5 strength left upper extremities in muck miner strength as well as biceps and triceps [...] worsening neck pain we will place her [place] observation for cardiac rule out as well [...] and requested by the observation provider at [place] as they were concerned about stroke. However I doubt this and did not feel this was necessary however it is currently pending and patient will be transferred to [place] if this is unremarkable. Signature: Tracy Arredondo DO Date: 06/20/2019 Time: 12:26 AM Tracy Arredondo 06/20/19 0033 Normal [facility] Magnesiumon 06-19-2019 Magnesium [Mass/Vol] 2.0 mg/dL Normal 1.7-2.3 [facility] Troponin Ton 06-19-2019 Troponin T.cardiac [Mass/Vol] ug/L Normal 0.000-0.02 9 [facility] CNOVon 06-12-2019 CNOV Office Visit (SPNMMN ) ----- MORALES LEE ([id number]) 1975 F Date Time Provider Department 06/12/19 [...] file Gets together: Not on file Attends zoroastrianism service: Not on file Active member of [...] [Z98.890] Order(s):PATIENT PLACED ON SPINE CARE PATH [[id number]] Order #: [id number]: 1 XR SCOLIOSIS PA STAND/LAT 2V [[id number]] Order #: [id number] FUTURE EMG(NEURO/NI) [[id number]] Order #: [id number]: 1 FUTURE CONSULT TO SPINE SURGERY [[id number]] Order #: [id number]: 1 FUTURE Prescriptions as of 06/12/2019 Sig: [...] Status:Closed by DIXIE TEE MD on 06/12/19 [facility] PROGRESSon 06-12-2019 PROGRESS HNO ID: [id number] Author: Robert Mittal (Rt) Service: Radiology Author Type: Mobile Home Technician Type: Progress Notes Filed: 06/12/2019 10:10 AM [...] RT Daxa June 12, 2019 10:09 AM [facility] PROGRESS HNO ID: [id number] Author: Dixie Tee Service: ? Author Type: [...] file Gets together: Not on file Attends zoroastrianism service: Not on file Active member of [...] healed incisions. Chest: symmetric expansion Data Review: [facility] records reviewed Care everywhere Lumbar [...] June 12, 2019 TIME: 8:12 AM Normal [facility] XR SCOLIOSIS 2V PA STAND/LAT [...] changes and multilevel compression deformities as described. Body Corporate Manager: PSCB Transcribe Date/Time: Jun 12 2019 4:36P Dictated by : CAROLINA MOJICA MD This examination was interpreted and the report reviewed and electronically signed by: CAROLINA MOJICA MD on Jun 12 2019 4:39PM EST [id number] Normal [facility] PROGRESSon 05-14-2019 PROGRESS HNO ID: [id number] Author: Laury Levin Service: ? Author Type: Physician Slag Motor Operator Type: Progress Notes Filed: 05/14/2019 1:26 PM [...] to rule out cubital tunnel syndrome. Normal [facility] PROGRESSon 05-09-2019 PROGRESS HNO ID: [id number] Author: Kathia Kelly Service: ? Author Type: ? Type: Progress Notes Filed: 05/14/2019 1:26 PM Note Text: Patient name: Morales Lee Are you being referred by a Center for Sp[facility] Health Provider or Pain Management Provider at [facility]? No If answer is YES please schedule directly with surgeon, triage does not need to be completed. Is this a self-referral No If not, who is the Referring Provider: Dr. Hendricks/ [facility] [place] MRI/CT/myelogram within 12 months: Yes If No , please refer to medical spine or PCP to complete above imaging, triage does not need to be completed Imaging viewable in Epic: No If not, please provide [phone] to fax in imaging reports for review. [...] will fax imaging report and op notes. [phone] Normal [facility] CT-CT C-SPINE WO CON IMPORTo n 02-13-2019 CT-CT C-SPINE WO CON IMPORT Images were obtained outside of [facility] [id number] Normal [facility] CT-CT L-SPINE WO CON IMPORTo n 02-13-2019 CT-CT L-SPINE WO CON IMPORT Images were obtained outside of [facility] [id number] Normal [facility] Vital Signs Date Time Vital Sign Value Performing Clinician Facility 05-14-2024 09:48-0400 Body height 157.5 cm Genny Orosco IDENTIFICATION AND RECORDS COMMANDER Work Phone: [facility] 05-14-2024 09:48-0400 Body mass index (BMI) [Ratio] 34.75 kg/m2 Genny Orosco IDENTIFICATION AND RECORDS COMMANDER Work Phone: [facility] 05-14-2024 09:48-0400 Body temperature 96.69 [degF] Genny Orosco IDENTIFICATION AND RECORDS COMMANDER Work Phone: [facility] 05-14-2024 09:48-0400 Body weight 86.18 kg Genny Arizak IDENTIFICATION AND RECORDS COMMANDER Work Phone: [facility] 05-14-2024 09:48-0400 Diastolic blood pressure 54 mm[Hg] Genny Barrosopatrick IDENTIFICATION AND RECORDS COMMANDER Work Phone: [facility] 05-14-2024 09:48-0400 Heart rate 72 /min Genny Cliftontrick IDENTIFICATION AND RECORDS COMMANDER Work Phone: [facility] 05-14-2024 09:48-0400 Systolic blood pressure 104 mm[Hg] Genny Cliftontrick IDENTIFICATION AND RECORDS COMMANDER Work Phone: [facility] 06-07-2022 12:48-0400 Diastolic blood pressure 83 mm[Hg] No Pcp Required [facility] 06-07-2022 12:48-0400 Heart rate 67 /min No Pcp Required [facility] 06-07-2022 12:48-0400 Respiratory rate 16 /min No Pcp Required [facility] 06-07-2022 12:48-0400 SaO2% (BldA) [Mass fraction] 96 % No Pcp Required [facility] 06-07-2022 12:48-0400 Systolic blood pressure 148 mm[Hg] No Pcp Required [facility] 01-06-2022 10:51-0400 Blood Pressure Location NATALIA MANNING [facility] 01-06-2022 10:51-0400 Diastolic blood pressure 86 mm[Hg] NATALIA MANNING [facility] 01-06-2022 10:51-0400 Heart rate 86 /min NATALIA MANNING [facility] 01-06-2022 10:51-0400 Respiratory rate 16 /min NATALIA MANNING [facility] 01-06-2022 10:51-0400 Systolic blood pressure 132 mm[Hg] NATALIA MANNING [facility] 09-08-2021 14:15-0500 Body height 149.86 cm No PCP None MG-Neurosurgery- Ah uja Work Phone: 09-08-2021 14:15-0500 Body mass index (BMI) [Ratio] 36.96 kg/m2 No PCP None WO-Sgaopuaddqah-Ws uja Work Phone: 09-08-2021 14:15-0500 Body surface area Derived from formula 1.78 m2 No PCP None QC-Knmxdosnqhdf-Gl uja Work Phone: 09-08-2021 14:15-0500 Body weight 83.01 kg No PCP None MG-Neurosurgery- Ah uja Work Phone: 09-08-2021 14:15-0500 Diastolic blood pressure 68 mm[Hg] No PCP None EC-Egwstjtyqqxn-Lg uja Work Phone: 09-08-2021 14:15-0500 Heart rate 96 /min No PCP None MG-Neurosurgery- Ah uja Work Phone: 09-08-2021 14:15-0500 Respiratory rate 16 /min No PCP None MG-Neurosurgery -Ah uja Work Phone: 09-08-2021 14:15-0500 Systolic blood pressure 115 mm[Hg] No PCP None GU-Vpxgxebznsjh-Sa uja Work Phone: 09-08-2021 14:15-0500 0 1 No PCP None MG-Neurosurgery- Ah uja Work Phone: Comment on above: [employer] 01-01-2021 16:46-0400 Heart rate 111 /min No Pcp Required [facility] 01-01-2021 16:46-0400 SaO2% (BldA) [Mass fraction] 95 % No Pcp Required [facility] 01-01-2021 14:00-0400 Body temperature 96.8 [degF] No Pcp Required [facility] 01-01-2021 14:00-0400 Diastolic blood pressure 77 mm[Hg] No Pcp Required [facility] 01-01-2021 14:00-0400 Respiratory rate 18 /min No Pcp Required [facility] 01-01-2021 14:00-0400 Systolic blood pressure 114 mm[Hg] No Pcp Required [facility] Encounters Encounter Date Encounter Type Care Provider Facility Start: 08-26-2024 End: 08-28-2024 Clinisync Result Encounter Generic External Data Provider [facility] External Department Unsolicited Start: 08-26-2024 End: 08-28-2024 Clinisync Result Encounter Generic External Data Provider [facility] External Department Unsolicited Start: 07-12-2024 End: 07-15-2024 Clinisync Result Encounter Generic External Data Provider [facility] External Department Unsolicited Start: 07-12-2024 End: 07-15-2024 Clinisync Result Encounter Generic External Data Provider [facility] External Department Unsolicited Start: 06-08-2024 End: 06-08-2024 ambulatory Kathrine Patel RN [facility] santana Start: 05-14-2024 End: 05-14-2024 Bamboo flowsheet Genny Orosco IDENTIFICATION AND RECORDS COMMANDER Work Phone: [facility] Start: 05-14-2024 End: 05-22-2024 Clinisync Result Encounter Genny Orosco IDENTIFICATION AND RECORDS COMMANDER Work Phone: [facility] External Department Unsolicited Start: 05-14-2024 End: 05-22-2024 Clinisync Result Encounter Genny Orosco IDENTIFICATION AND RECORDS COMMANDER Work Phone: [facility] External Department Unsolicited Start: 05-14-2024 End: 05-14-2024 ambulatory GENNY OROSCO Not Available Start: 05-14-2024 End: 05-14-2024 Office outpatient visit 15 minutes Genny Orosco IDENTIFICATION AND RECORDS COMMANDER Work Phone: [facility] Comment on [...] End: 03-31-2024 Pre-admission assessment LEX FREDERICK [facility] Start: 03-26-2024 End: 04-07-2024 Pre-admission assessment LEX FREDERICK [facility] Start: 02-13-2024 End: 02-13-2024 ambulatory SHAIKH [...] Danya Bingham [facility] Start: 11-22-2022 ambulatory MENDOSA H FAWWAD Facilit y:H1 Start: 11-09-2022 End: 11-09-[address] DEVANTE ELIZONDO . Facility:[facility]1 Start: 10-15-2022 End: 10-15-2022 ambulatory KYRA Rojas Facility:[facility]1 Start: 09-24-2022 End: 09-24-2022 Patient encounter procedure Danya Bingham [facility] Start: 09-01-2022 Encounter for preprocedural laboratory examination DANYA BINGHAM . [facility] Start: 08-25-2022 End: 08-25-2022 ambulatory MENDOSA H FAWWAD Facility:H1 Start: 08-24-2022 End: 08-25-2022 ambulatory MENDOSA H FAWWAD Facility:H1 Start: 08-24-2022 End: 08-25-2022 Encounter for preprocedural laboratory examination MENDOSA H FAWWAD Facility:H1 Start: 08-21-2022 ambulatory MENDOSA H FAWWAD Facilit y:H1 Start: 07-16-2022 End: 07-16-2022 Patient encounter procedure Danya Bingham [facility] Start: 06-06-2022 End: 06-07-2022 Emergency department patient visit Yony Aguirre [facility] Adult ED Blue 45 Start: 05-31-2022 End: 05-31-[address] ALEXANDRU SORIA . Facility:H1 Start: 05-19-2022 End: 05-19-2022 Off-Site Danya Bingham [facility] Start: 05-07-2022 End: 05-07-2022 ambulatory SHAIKH Shirley [...] 02-04-2022 Off-Site Danya Bingham [facility] Start: 01-11-2022 Chart Update No PCP None MG-Neurosu [facility] [place] Work Phone: Start: 01-11-2022 End: 01-11-2022 Patient encounter procedure Danya Bingham [facility] Start: 01-07-2022 AUDIT No PCP None MG-Neurosu [facility] B200 Work Phone: Start: 01-06-2022 End: 01-06-2022 Patient encounter procedure NATALIA MANNING [facility] Start: 10-13-2021 AUDIT No PCP None MG-Neurosu rgery-Miguel Work Phone: Start: 09-29-2021 AUDIT No PCP None MG-Gastroe nterology-B olwell 6 [facility] Work Phone: Start: 09-15-2021 End: 10-02-2021 Evaluation and management of inpatient Dr. LEX FREDERICK Facility:[facility] Start: 09-09-2021 AUDIT No PCP None MG-Neurosu rgery-Miguel Work Phone: Start: 09-08-2021 Office outpatient vi sit 40 minutes No PCP None ZT-Srknhlrsjpnd-Tysep Work Phone: Start: 05-05-2021 Postop follow up vis it related to original px No PCP None EK-Umocbygzbalx-NSZLS Work Phone: Start: 12-26-2020 End: 01-01-2021 Evaluation and management of inpatient Lex Frederick [facility] [id number] [id number] 01 Preoperative state No PCP None MG-Neuros urgery-[facility] Work Phone: Procedures Date Procedure Procedure Detail Performing Clinician Start: 08-26-2024 BLOOD CULTURE 1 Generic External Data Provider Start: 08-26-2024 BLOOD CULTURE 2 Generic External Data Provider Start: 07-12-2024 Bacteria identified in Urine by Culture Generic External Data Provider Start: 05-18-2024 Drug test prsmv read direct optical obs pr date Genny Orosco IDENTIFICATION AND RECORDS COMMANDER Work Phone: Start: 05-14-2024 COMPLIANCE DRUG ANAL YSIS, UR Genny Munozzpatrick IDENTIFICATION AND RECORDS COMMANDER Work Phone: Start: 09-21-[address] EFRAIN FREDERICK Comment on above: Performed By: #### A FPA3 #### [facility] [address] [place] [address] Start: 09-21-[address] EFRAIN FREDERICK Comment on above: Order Comment: VENECIA ESPINO, 09/21/2021 05:08TEST TYPE + SCREEN WAS CANCELLED, 09/21/2021 05:06 NO PHLEB ID ON TUBE. Result Comment: CALL ED RN AFSANEH ESPINO, 09/21/2021 05:08 Performed By: #### A FPA3 #### [facility] [address] [place] [address] Start: 09-17-[address] EFRANI FREDERICK Comment on above: Performed By: #### T +S #### [facility] [address] [place] [address] Start: 12-27-2020 End: 12-28-2020 Release Blood Product-Packed [...] Td Vaccines (2 - Td or Tdap) [facility] Start: 06-13-2024 End: 06-13-2024 Patient encounter procedure 06/13/2024 9:20 AM EDT Office Visit [facility] [address] [place] [address] Lian Greer, CHIEF DEVELOPMENT OFFICER-WHITING CAN WORKER [address] [place] [address] [facility] Start: 05-14-2024 End: 05-14-2024 Patient encounter procedure 05/14/2024 9:30 AM EDT Office Visit [facility] [address] [place] [id number] Genny Orosco NP [address] [place] [address] [facility] Start: 05-06-2024 Influenza vaccination [facility] Start: 10-17-2023 End: 10-17-2023 Patient encounter procedure 10/17/2023 6:30 PM EST Office Visit [facility] [address] [place] [id number] Shaikh Obrien MD [address] [place] [address] [facility] Start: 2023 Administration of varicella zoster vaccine Zoster (Shingles) Vaccine (1 of 2) [facility] Start: 05-06-2023 Influenza vaccination Influenza Vacc ine (#1) [facility] Start: 11-03-2021 POV, Provider: Lex Frederick, Status: Pen, Time: 2:00 PM POV, Provider: Lex Frederick, Status: Pen, Time: 2:00 PM FK-Gnefdfoonxajxfag-O olwell 6 [facility] Work Phone: Start: 10-07-2021 Admission to [facility] RNVISIT, Provider: NURSE VISIT ASHLEY 5TH,MGNEUROSURGERY, Status: Pen, Time: 10:15 AM EI-Vmmmuqehhlujpeqs-L olwell 6 [facility] Work Phone: Start: 09-18-2021 [facility], Provider: Lex Frederick, Status: Pen, Time: 8:00 AM [facility], Provider: Lex Frederick, Status: Pen, Time: 8:00 AM RW-Dyadvsmbdgmq-Zdhmk Work Phone: Start: 01-08-2021 Patient encounter procedure Neurosurgery Miguel Start: 12-31-2020 End: 01-01-2022 [facility] Comment on above: please place at beds geraldine for drain removal Start: 12-26-2020 End: 12-27-2021 Naloxone Injectable 0.4 mg IntraVenous Push Once ; (NARCAN)DOSE = 0.2 mg IntraVenous Push Once, PRN patient is unarousable, and respiratory rate lessClinician Notes: 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 immediately Start: 2013 Screening for malign ant neoplasm of breast Mammogram [facility] Start: 2003 Screening for malign ant neoplasm of cervix [facility] Start: 1994 Screening for malign ant neoplasm of cervix Pap Smear [facility] Start: 1991 Adult BMI Screening Adult BMI Screen ing [facility] Start: 1985 Depression Screening Depression Scre ening [facility] Start: 1985 Tobacco Screening Tobacco Screening [facility] Start: 1973 Screening for malign ant neoplasm of colon [facility] Bacteria identified in Urine by Culture URINE CULTURE, ROUTINE Lab Routine 07/12/2024 2:30 PM [facility] BLOOD CULTURE 1 BLOOD CULTURE 1 Lab Routine 08/26/2024 8:29 AM [facility] BLOOD CULTURE 2 BLOOD CULTURE 2 Lab Routine 08/26/2024 8:25 AM [facility] Immunizations Immunization Date Immunization Notes Care Provider Delfino chu 02-22-2020 tetanus toxoid, redu luis diphtheria toxoid, and acellular pertussis vaccine, adsorbed Danya Bingham [facility] 12-05-2018 hepatitis A vaccine, adult dosage Danya Lujacque [facility] Payers Date Payer Category Payer [facility] [id number] 2012 Unknown 1973 Unknown [id number] 2.16.840.1.057648.3.579.2 .356 1973 Unknown [id number] 2.16.840.1.012524.3.579.2 .356 1973 Unknown [id number] 2.16.840.1.766342.3.579.2 .593 1973 Unknown [id number] 2.16.840.1.849517.3.579.2 .593 1973 Unknown [id number] 2.16.840.1.395191.3.579.2 .593 1973 Unknown [id number] 2.16.840.1.724549.3.579.2 .593 1973 Unknown [id number] 2.16.840.1.282196.3.579.2 .593 1973 Unknown [id number] 2.16.840.1.906977.3.579.2 .593 1973 Unknown [id number] 2.16.840.1.952179.3.579.2 .593 1973 Unknown [id number] 2.16.840.1.193568.3.579.2 .593 1973 Unknown [id number] 2.16.840.1.107871.3.579.2 .593 1973 Unknown [id number] 2.16.840.1.605299.3.579.2 .593 1973 Unknown [id number] 2.16.840.1.494207.3.579.2 .593 1973 Unknown [id number] 2.16.840.1.959186.3.579.2 .593 1973 Unknown [id number] 2.16.840.1.519449.3.579.2 .593 1973 Unknown [id number] 2.16.840.1.243263.3.579.2 .593 1973 Unknown [id number] 2.16.840.1.028900.3.579.2 .593 1973 Unknown [id number] 2.16.840.1.182190.3.579.2 .593 1973 Unknown [id number] 2.16.840.1.608977.3.579.2 .593 1973 Unknown [id number] 2.16.840.1.689529.3.579.2 .1046 1973 Unknown [id number] 2.16.840.1.136049.3.579.2 .727 1973 Unknown [id number] 2.16.840.1.165367.3.579.2 .1259 1973 Unknown [id number] 2.16.840.1.216544.3.579.2 .1259 1973 Unknown [id number] 2.16.840.1.260357.3.579.2 .1259 1959 Unknown [id number] Social History Date Type Detail Facility [facility] Tobacco smoking consumption unknown [facility] Start: 08-01-2023 End: 05-14-2024 History of drug use History of drug use WZ-Rbrcsgrjzwhm-VCAX C Work Phone: Start: 01-05-2016 End: 02-13-2024 Tobacco smoking status Smokes tobacco daily (finding) [facility] Comment on above: 1ppd 1ppd Start: 08-08-2023 End: 05-14-2024 Sex Assigned At Female [facility] [place] History of tobacco use Cigarette Smoker N [facility] Start: 08-08-2023 End: 05-14-2024 Alcohol intake Lifetime non-drinker (finding) [facility] Start: 1975 Sex Assigned At Not on file N [facility] Childcare Unknown [facility] History of tobacco use Passive smoker [...] Status N/A [facility] 07-16-2022 Functional Status N/A [facility] Functional observable [facility] Mental Status Date Assessment Result Facility 12-29-2020 Cognitive functi ons [id number] [facility] Clinical Notes 12-26-2020 to 06-08-2024 Telephone Encounter - Kathrine Patel RN - 06/08/2024 3:24 PM EDTTelephone Encounter - Kathrine Patel RN - 06/08/2024 3:24 PM EDTTelephone Encounter - Kathrine Patel RN - 06/08/2024 3:24 PM EDT Note Date & Type Note Facility 06-08-2024 Miscellaneous Notes ----- Message from [email or web address] sent at 06/08/2024 3:14 PM EDT ----- Contract: [employer] Lidoderm Patch from [facility], not sure if can use Contract: [facility] Patient is not a current patient of this office informed that we cannnot give advice without this. Will call her insurance company. No triage done Reason for Disposition Caller has cancelled the call before the first contact Protocols used: No Contact or Duplicate Contact Call-A-AH documented in this encounter [facility] 06-08-2024 Telephone encounter Note ----- Message from [employer] sent at 06/08/2024 3:14 PM EDT ----- Contract: [facility] Lidoderm Patch from [facility], not sure if can use [facility] 06-08-2024 Telephone encounter Note Contract: [facility] Patient is not a current patient of this office informed that sameer desir give advice without this. Will call her insurance company. No triage done [facility] 06-08-2024 Telephone encounter Note Reason for Disposition Caller has cancelled the call before the first contact Protocols used: No Contact or Duplicate Contact Call-A-AH [facility] 05-15-2024 History of Presen t illness Narrative [...] physician appointments and anticipated to need it correction and lifelong Images from the original note [...] States her daughter in law is an ROLE PLAYER and helps care for her. When I discussed with patient her chronic neurological issues including spinal cord compression, stenosis and myelopathies, pt states she is no longer seeing neuro because after what the [place] did to me, I am not seeing [...] physician appointments and anticipated to need it correction and lifelong Psychophysiological insomnia Encounter for medication management Relevant Orders Rapid drug screen, urine Pressure ulcer, buttock Patient is wheelchair bound with limited mobility due to chronic LBP, b/l LE weakness. Has associated fecal and urinary incontinence. Relevant Orders Ambulatory referral to Wound Clinic Rapid drug screen, urine Caroline documented in this encounter [facility] 04-24-2024 Telephone encounter Note Patient would like a refill of her Valium. Was from [email or web address] but did not transfer to [employer]. [facility] 04-24-2024 Miscellaneous Notes Patient would like a refill of her Valium. Was from [employer] but did not transfer to [employer]. documented in this encounter [facility] 11-26-2022 Hospital Discharg e instructions Patient Education [...] 10/01/2017 Document Revised: 12/14/2019 Document Reviewed: 10/01/2017 [employer] Patient Education 2019 [employer]. Follow Up Care 10/14/2022 11:11:52 With:Zachery HARKINS, CAROLEE Anderson, URO Address: When: Unknown [facility] 09-23-2022 Hospital Discharg e instructions Patient [...] including vitamins, herbs, eye drops, creams, and eyrc-qjq-gclsswk medicines. Any problems you or family members [...] provider tells you to take them. Taking cfxp-xbf-tpibroi medicines, vitamins, herbs, and supplements. General instructions [...] Document Reviewed: 10/08/2019 Elsevier Patient Education 2020 [employer]. Follow Up Care 08/31/2022 10:49:10 With:Zachery HARKINS, CAROLEE Anderson, URO Address: When: Unknown [facility] 07-16-2022 Hospital Discharg e instructions [...] nerve stimulation). For women, using a medical lab scientist to prevent urine leaks. This is a [...] right after experiencing incontinence. General instructions Take okpx-kmq-aiprbmz and prescription medicines only as told by [...] 09/29/2005 Document Revised: 09/01/2018 Document Reviewed: 12/01/2017 [employer] Patient Education 2020 [employer] Follow Up Care 06/15/2022 11:30:52 With:Zachery HARKINS, CAROLEE Anderson, URO Address: When: Unknown [facility] 02-04-2022 Hospital Discharg e instructions Patient [...] nerve stimulation). For women, using a medical lab scientist to prevent urine leaks. This is a [...] right after experiencing incontinence. General instructions Take qhac-xhc-ivoylcy and prescription medicines only as told by [...] 09/29/2005 Document Revised: 09/01/2018 Document Reviewed: 12/01/2017 [employer] Patient Education 2020 [employer] 02/04/2022 16:23:10 Calorie Counting for Weight Loss [...] 08/22/2006 Document Revised: 05/11/2019 Document Reviewed: 07/22/2017 [employer] Patient Education 2020 [employer]. Follow Up Care 02/04/2022 13:28:46 With:Zachery HARKINS, CAROLEE Anderson, URO Address: When: Unknown [facility] 01-11-2022 Evaluation + Plan note Extrac alexander [...] and Plan Diagnosis Bowel and bladder incontinence ([id number] R32, Billing Diagnosis, Medical). Incontinence without sensory awareness (CEL63-CS N39.42, Working, Medical). Diagnosis Bowel and bladder incontinence (QBW03-UD R32, Billing Diagnosis, Medical). Incontinence without sensory awareness (LJG12-MT N39.42, Working, Medical). Addendum by Danya Bingham MD on January 11, 2022 10:23 EDT Post procedure diagnosis: Intrinsic sphincter deficiency, acontractile detrusor [facility]05-09-2022 Hospital Discharge instructions Patient Education 01/11/2022 [...] Up Care 01/06/2022 11:41:34 With:Danya Bingham Address: [facility] David Sloan [address] [address] [phone] Business (1) When: Unknown Comments:Call for followup appointment in 2-3 weeks With:Danya Bingham Address:Unknown When: Unknown [facility]05-04-2022 Hospital Discharge instructions Patient Education 01/06/2022 [...] one near you, check this website: [email or web address]-[email or web address]-[email or web address]/ [facility]. These are part of a [...] Learn more about cervical cancer from: [employer]: www.acog.org/Patients/FAQs/Cervical-Cancer [employer]: www.cancer.org/cancer/cervicalcancer/ U.S. Centers for Disease [...] 09/05/2016 Document Revised: 09/23/2018 Document Reviewed: 04/19/2017 [employer] Patient Education 2020 [employer]. Follow Up Care 11/20/2021 10:16:51 With:NIGEL GREEN, NATALIA Santillan, URL Address: [address] 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 Lex Frederick Resident/Fellow/Other Slag Motor Operator: Chery Awan Procedure: posterior L4-L5 decompression posterior [...] Completion Last Updated: 22-Sep-2021 10:54 by Lex Frederick)[facility]01-17-2022 NoteHistory & Physical Reviewed: /Lactating: Are You [...] the note. I personally evaluated the patient [id number] Electronic Signatures: Lex Frederick) (Signed 21-Sep-2021 11:50) Authored: Note Completion Co-Signer: History & Physical Reviewed, ERAS, Consent, Note Completion Jaya Mosquera (Resident)) (Signed 21-Sep-2021 02:51) Authored: History & Physical Reviewed, ERAS, Consent, Note Completion Last Updated: 21-Sep-2021 11:50 by Lex Frederick () References: 1. Data Referenced From MRI Safety Screen v2 19-Sep-2021 19:00[facility]01-15-2022 NoteRehab: Info: Mode of Treatmentoccupational therapy; attempted; OT evaluation initiated with home set-up obtained (1st floor set up/ 0 step entry, lives with , tub shower with chair); Pt with low BP upon arrival 79/54. Second BP reading taken at 71/51. RN notified, further evaluation deferred at this time. OT to reattempt when pt medically appropriate. 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 Exploration of spinal [...] performed and the images transferred to the Sincerely system for use in intraoperative image-guided computer-assisted [...] using the torque dri (more content not included)...[facility]01-14-2022 NoteThis report has been cancelled.[facility]01-14-2022 NoteHistory & Physical Reviewed: /Lactating: Are You [...] the note. I personally evaluated the patient [id number] Electronic Signatures: Fidel Maciel (Resident)) (Signed 17-Sep-2021 22:49) Authored: History & Physical Reviewed, ERAS, Consent, Note Completion Lex Frederick) (Signed 19-Sep-2021 10:17) Authored: Note Completion Co-Signer: History & Physical Reviewed, ERAS, Consent, Note Completion Last Updated: 19-Sep-2021 10:17 by Lex Frederick) References: 1. Data Referenced From MRI Safety Screen v2 17-Sep-2021 11:28[facility]01-11-2022 NoteReferral Information: Consult requested by (Attending Name): [...] be able to m (more content not included)...[facility]01-11-2022 NoteHistory of Present Illness: /Lactating: Are You [...] the note. I personally evaluated the patient [id number] Electronic Signatures: Fidel Maciel (Resident)) (Signed 15-Sep-2021 [...] Plan Last Updated: 16-Sep-2021 10:20 by Lex Frederick)[facility]04-23-2021 History of Present illness Narrative* I just had the pleasure of seeing Mrs. Jesus villarreal in the Neurosurgery Spine Clinic at the [facility]. She is a very pleasant [...] Ms. LEE care. * Lex Frederick MD, [facility], [facility] * Director - Minimally Invasive Spine Surgery * [facility] * Data Coder Operator of Neurological Surgery * [facility] [employer] * [place], [place] * Some of this note was completed using [employer] voice recognition technology and sometimes the software misinterprets words. This may include unintended errors with respect to translation of words, typographical errors or grammar errors which may not have been identified prior to finalization of the chart note. Please take this into account when reading this note. [employer] Work Phone: [phone]) 216-226804-23-2021 Reason for referral (narrative)* Reason for Referral: Patient s/p posterior bilateral L1 transpedicular decompression, posterior T7-T8, T8-T9, T9-T10, T0-T11, T11-T12, T12-L1 htuton hernandez osteotomies, Posterior T5-L4 instrumentation and fusion on 12/26 [facility] Future Appointments Appointment Date:01/07/2022 11:00:00 AM Scheduled Provider: Location:[facility] Appointment Type:Urology CALL PAT FT Appointment Date:01/11/2022 08:00:00 AM Scheduled Provider: Location:[facility] Appointment Type:Urology FT Appointment Date:01/11/2022 09:00:00 AM Scheduled Provider: Location:[facility] Appointment Type:Urology FT [facility] + [facility] + Plan note Future Appointments Appointment Date:04/06/2024 12:00:00 PM Scheduled Provider: Location:.MRI Appointment Type:MRI Spine (FT) Appointment Date:04/06/2024 12:00:00 PM Scheduled Provider: Location:[facility] Appointment Type:Surgery FT Future Scheduled Tests Radiology* MRI Spine Cervical w/o Contrast 04/06/24 * MRI Spine Lumbar w/o Contrast 04/06/24 * MRI Spine Thoracic w/o Contrast 04/06/24 [facility] Evaluation note* Neurological: [id number] 5/5 except hg/io4+ble 5/5incision cdiHead/Neck: Ox3, awake, alertBUE 5 prox, HG/IO4+BLE HF/KE/DF/PF/EHL 5 [facility]* Constitutional: in no acute distressSkin: Well perfusedEyes: OU 3RHead/Neck: atraumatic, normocephal icRespiratory/Thorax: airway intact, good chest expansionCardiovascular: normal rate, regular rhythmGastrointestinal: non-tenderNeurological: NAD, A&[id number] Nerves II-XII: PERRL, EOMI, Face symmetric, Facial SILT, Palate/Tongue midline and symmetric, shoulder shrugs symmetric, hearing intact to finger rubs bilaterallyMotor: RUE D5, B5, T5, HG5, IO5LUE D5, B5, T5, HG5, IO5RLE HF 4+, KE4+, PF4-, DF3LLE HF 4+, KE4+, PF3, DF4-Sensation: SILT throughout all extremitiesPsychological: mood appropriate [facility]* Diagnosis Chronic low back pain, unspecified back pain laterality, unspecified whether sciatica present- Primary Nausea in adult documented in this encounter [facility]* Diagnosis Intrinsic sphincter deficiency (ISD)- Primary Psychophysiological insomnia Persistent disorder of initiating or maintaining sleep Encounter for medication management Dependence on wheelchair Pressure injury of skin of buttock, unspecified injury stage, unspecified laterality documented in this encounter [facility]* Diagnosis Chronic low back pain, unspecified back pain laterality, unspecified whether sciatica present [facility] N[facility] No data available for this section [facility] Dis[facility] instructions* Activity:activity as tolerated. May [...] Certification:Home Care Services Needed: yesSkilled Disciplines Ordered: RN/STRAIGHTENER AND ALIGNER, PT, OTFace to Face Encounter Completed: yesDate of Encounter: [id number] Necessity for Homecare (based on clinical findings): [...] washing dishes, & loading the dryer or painter and decorator apprentice until cleared by MD. * Wound Care:Inspect [...] - Neurosurgeon:Physician/Dept/Service: NeurosurgeonDr Josephuled Date/Time: 08-Jan-2021 10:40Location: [facility] [address] [place], [place]Phone Number: [phone]: 2 week postop/wound check visit; Bring Insurance Card and Photo ID [facility] No data available for this section [facility] InstructionsNot on filedocumented in this encounter [facility] No data available for this section [facility] reason for referral (narrative) , urinary incontinence, neurogenic bladder, open bladder neck, possible SP tube placement Referred by: Zachery HARKINS, Danya Rhodes [facility] Reason for referral (narrative)* Consultation (Routine) - Authorized Specialty Diagnoses / Procedures Referred By Pablo saavedra Referred To Contact Wound Care Diagnoses Pressure injury of skin of buttock, unspecified injury stage, unspecified laterality Procedures HI OFFICE/OUTPATIENT [facility] 60 MINUTES Genny Orosco NP [address] [place] [phone] Pérez Pederson MD [address], [place] [address] Referral ID Status Reason Start Date Expiration Date Visits Requested Visits Authorized [id number] Authorized Specialty Services Required 05/15/2024 11/11/2024 1 [...] section and content) DATE CREATED AUTHOR 06/20/2019 [facility] DATE CREATED AUTHOR AUTHOR'S ORGANIZ ATION 06/20/2019 [facility] DATE CREATED AUTHOR AUTHOR'S ORGANIZ ATION 07/26/2019 [facility] DATE CREATED AUTHOR AUTHOR'S ORGANIZ ATION 12/29/2020 [facility] DATE CREATED AUTHOR AUTHOR'S ORGANIZ ATION 09/16/2021 [facility] DATE CREATED AUTHOR AUTHOR'S ORGANIZ ATION 11/25/2021 [facility] DATE CREATED AUTHOR AUTHOR'S ORGANIZ ATION 12/10/2021 [facility] DATE CREATED AUTHOR AUTHOR'S ORGANIZ ATION 08/06/2022 [facility] DATE CREATED AUTHOR AUTHOR'S ORGANIZ ATION 01/17/2023 [facility] DATE CREATED AUTHOR AUTHOR'S ORGANIZ ATION 06/09/2023 [facility] DATE CREATED AUTHOR AUTHOR'S ORGANIZ ATION 12/29/2023 [facility] DATE CREATED AUTHOR AUTHOR'S ORGANIZ ATION 05/15/2024 [facility] d[facility] Specialists EPIC <item><item> Privacy Markings [...] Care Team (unrecognized sect ion and content) Planning Division Superintendent Relationship Specialty Start Date End Date Shaikh Obrien MD PCP - General Internal Medicine 08/05/23 Planning Division Superintendent Relationship Specialty Start Date End Date Shaikh Obrien MD PCP - General Internal Medicine 11/15/22 Planning Division Superintendent Relationship Specialty Start Date End Date Unallocated, Nilo Juarez MD [address] [place] [address] PCP - General Family Medicine 06/04/24 Genny Orosco NP [address] [place] [address] Nurse Practitioner Family Medicine 04/12/24 Planning Division Superintendent Relationship Specialty Start Date End Date Kostas Ching MD [address] [place] [phone] PCP - General Family Medicine 04/12/24 Genny Orosco NP [address] [place] [phone] Nurse Practitioner Family Medicine 04/12/24 Planning Division Superintendent Relationship Specialty Start Date End Date Kostas Ching MD [address] [place] [phone] PCP - General Family Medicine 04/12/24 Genny Orosco NP [address] [place] [phone] Nurse Practitioner Family Medicine 04/12/24 Planning Division Superintendent Relationship Specialty Start Date End Date Kostas Ching MD [address] [place] [phone] PCP - General Family Medicine 04/12/24 Genny Orosco NP [address] [place] [phone] Nurse Practitioner Family Medicine 04/12/24 Planning Division Superintendent Relationship Specialty Start Date End Date Kostas Ching MD [address] [place] [phone] PCP - General Family Medicine 04/12/24 Genny Orosco NP [address] [place] [phone] Nurse Practitioner Family Medicine 04/12/24 Reason for [...] BE BASED ON THE PRIMARY CLINICAL RECORDS. [employer] [facility]. provides no warranty or guarantee of the accuracy or completeness of information in this document.
--- NOTE | 2024-08-30 12:42 | CM.DCFOLLOWU ---
Person spoke with: patient How are you feeling? still pain, has a water blister near big toe How is your pain? still pain Did you understand your discharge instructions?yes Do you have any questions about your discharge instructions? no Were you given any prescriptions at discharge? yes Were you able to get your prescriptions filled? yes but not until a few days after discharge Do you understand how to take your medications as ordered?yes Do you have any questions about your follow up appointment and do you plan to keep your follow up appointment? no questions, has been trying to ge corey of Dr. Eugene's office, but not getting a phone call back. Advised to go to ED if feels wound is worsening and pain is not under control Is there anything else that you would like to discuss? no Questions/Comments/Concerns/Other: none
== END 2024-08-28 11:30 | disposition home or self-care (01) ==
LOC: ER 07:52 → MS 08-28 09:41
PROVIDERS: Admitting Provider Family Medicine; Emergency Provider Student in an Organized Health Care Education/Training Program; PCP Internal Medicine; Visit Provider Family Medicine
DX: L03.116 Cellulitis of left lower limb (principal); L97.421 Non-pressure chronic ulcer of left heel and midfoot limited to breakdown of skin; Z23 Encounter for immunization; L85.3 Xerosis cutis; G95.20 Unspecified cord compression; R32 Unspecified urinary incontinence; R15.9 Full incontinence of feces; M62.81 Muscle weakness (generalized); G62.9 Polyneuropathy, unspecified; M54.42 Lumbago with sciatica, left side; G89.29 Other chronic pain; F17.210 Nicotine dependence, cigarettes, uncomplicated; Z79.899 Other long term (current) drug therapy; Z99.3 Dependence on wheelchair; Z87.440 Personal history of urinary (tract) infections; Z88.0 Allergy status to penicillin; Z88.5 Allergy status to narcotic agent; Z88.8 Allergy status to other drugs, medicaments and biological substances; Z79.891 Long term (current) use of opiate analgesic
CPT/HCPCS: 36415; 36569; 36592; 80048; 80053; 83605; 85025; 85610; 85730; 86140; 87040; 90674; 93971; 94761; 96365; 96366; 96367; 96372; 96375; 96376; 99285; 99407; C1887; G0008; G0378; J1650; J1885; J2405; J3370; Q9967

== ENCOUNTER 2024-09-01 06:05 | Inpatient (IN) | payer BC, MEDICAID, SELFPAY ==
[2024-09-01] VITALS (22 sets, daily range): BP systolic 83–124; BP diastolic 49–71; PULSE 69–91; TEMP 36.5–36.7; O2SAT 91–100; BMI 36.3; BMI 36.7
--- OUTSIDE RECORDS SUMMARY | 2024-09-01 06:11 | XMS_ITS | CCD ---
Author Organization [facility] Care Team Providers Care Public Policy Analyst Name Role Phone Required, No Pcp Unavailable [...] Admitting Unavailable VETO ., IVON Attending Unavailable [facility] Primary Care Unavailable PATRICK, DEBORAH Aponte Consulting Unavailable [facility] Primary Care Unavailable REINECK, DR ABHINAV Livingston Admitting Unavailabl e REINECK, DR ABHINAV Livingston Consulting Unavailabl e REINECK, DR ABHINAV Livingston Attending Unavailabl e HAY ., DR LOW Admitting Unavailable [facility] Primary Care Unavailable HAY ., DR LOW Attending Unavailable ZIEBER, DR ENRIQUE Santana Consulting Unavailable HAY ., DR LOW Consulting Unavailable LUE ., DANYA M Admitting Unavailable LUE ., DANYA M Attending Unavailable [facility] Primary Care Unavailable [facility] Primary Care Unavailable LUE ., DANYA M Admitting Unavailable LUE ., DANYA M Consulting Unavailable LUE ., DANYA M Attending Unavailable CANDICE MATTA Consulting Unava ilRACHEL Kirk Consulting Unavailable DIAB ., KYRA Admitting Unavailable [facility] Primary Care Unavailable DIAB ., KYRA Attending Unavailable GRECHNY ., BONITA HULL Consulting [facility] Un[facility] LUE ., DANYA M Admitting Unavailable LUE ., DANYA M Consulting Unavailable LUE ., DANYA Aponte Attending Unavailable PAY ., DR RODRIGUEZ Admitting Unavailable PAY ., DR RODRIGUEZ Consulting Unavailable [facility] Primary Care Unavailable PAY ., DR RODRIGUEZ Attending Unavailable [facility] Primary Care Unavailable REINECK, DR ABHINAV Livingston Admitting Unavailabl e REINECK, DR ABHINAV Livingston Consulting Unavailabl e REINECK, DR ABHINAV Livingston Attending Unavailabl e KORIN STANLEY Consulting Unavailable Otoniel, Dr. Lex De Los Santos Attending Kiana Obrien MD, [facility] Care Provider [phone] [facility] Care Unavailable Lue, Danya Aponte. Attending Unavailable SHAIKH OBRIEN Attending Unavailable SHAIKH OBRIEN Attending Unavailable GENNY OROSCO Attending Unavailabl jacque Obrien MD, [place] Primary Care Provider Kwesi STACY, Genny Unavailable [phone] Unallocated , [place] Provider Primary Care Provi marilu Kostas Ching MD Primary Care Provider [phone] Allergies Allergy Classification Reported Allergen(s) Allergy Type Date of Onset Reaction(s) Facility Opioid Agonists (1 source) Codeine Drug Allergy Unknown [facility] Penicillins (antibiotic) (1 source) Penicillin Drug Allergy Unknown [facility] QUEtiapine (1 source) QUEtiapine Drug Allergy Unknown [facility] (20 sources) Codeine; Translations: [Codeine] Drug Allergy 6 Hives, Facial Swelling MG-Neurosurger [facility] Work Phone: (20 sources) Penicillins; Translations: [Penicillins] Allergy to drug (finding) Hives, Unknown -Neurosurger [facility] Work Phone: (17 sources) Promethazine; Translations: [promethazine] Drug Allergy 1 Swelling, Unknown [facility] (1 source) QUEtiapine Drug Allergy Seizures [facility] (2 sources) Codeine Drug Allergy 3 [facility] (3 sources) gabapentin; Translations: [Neurontin] Drug Allergy [facility] (1 source) Levamisole Drug Allergy [facility] (1 source) Morphine Drug Allergy 0 [facility] (2 sources) Penicillins Drug allergy (disorder) 3 [facility] (1 source) QUEtiapine Drug Allergy 3 [facility] (8 sources) Penicillins Drug Allergy 3 Hives, GI intolerance [facility] (8 sources) QUEtiapine Drug Allergy 3 Unknown [facility] (1 source) Penicillin Drug Allergy 6 Facial Swelling [facility] (1 source) Phenergan Plain Propensity to adverse reactions to drug 6 Swelling, Facial Swelling [facility] Medications Current Medications Medication Drug [...] q12hr, # 2 cap(s), Refills(s) 0, [id number], 156, cm, 07/16/22 10:58:00 EST, Height/Length Dosing, [...] day(s), # 2 tab(s), Refills(s) 0, Pharmacy: [address], 156, cm, 01/06/22 10:53:00 EDT, Height/Length [...] oral Quantity: 0 Refills: 0 Ordered: 05-Dec-2020 Craole Mcdaniel Status: Discontinued Generic Substitution Allowed diclofenac [...] Allowed docusate sodium 50 mg / sennosides, correction 8.6 mg oral tablet (2 sources) Start: [...] Start: 01-05-2016 take 2 capsules by m [facility] three times daily Neurontin 100 mg Cap 200 mg = 2 cap(s), Oral, TID, Refills(s) 0 Start Date: 01/05/16 Status: Ordered Start: 04-17-2015 take 1 capsule by mo [facility] three times daily gabapentin (NEURONTIN) 300 mg [...] Start: 04-17-2015 take 1 capsule by mo [facility] once daily hydrochlorothiazide (MICROZIDE) 12.5 mg capsule [...] tab(s), Refills(s) 3, [facility], 156, cm, 02/04/22 15:47:00 EDT, Height/Length Dosing, 78, kg, 02/04/22 15:47:00 EDT, Weight Dosing Start Date: 02/25/22 Status: Ordered nystatin 100 unt/mg topical powder (8 sources) Polyene Antifungal Start: 03-07-2023 Nyamyc [id number] UNIT/GM powder Apply 1 application topically in [...] 30 tab(s), Refills(s) 11, [facility]: [facility] #[id number], 156, cm, 07/16/22 10:58:00 EST, Height/Length Dosing, 78, kg, 07/16/22 10:58:00 EST, Weight Dosing Start Date: 10/04/22 Status: Ordered Start: 07-16-2022 take 1 tablet by marlne th once daily oxybutynin 10 mg ER Tab 10 mg = 1 tab(s), Oral, Daily, # 30 tab(s), Refills(s) 11, [facility]: [facility] #[id number], 156, cm, 07/16/22 10:58:00 EST, Height/Length Dosing, 78, kg, 07/16/22 10:58:00 EST, Weight Dosing Start Date: 07/16/22 Status: Ordered Start: 03-10-2022 take 1 tablet by marlen th once daily oxybutynin 10 mg ER Tab 10 mg = 1 tab(s), Oral, Daily, # 30 tab(s), Refills(s) 3, Pharmacy: [address], 156, cm, 02/04/22 15:47:00 EDT, Height/Length [...] 07-Jan-2021 Generic Substitution Allowed polyethylene glycol 3350 14000 mg powder for oral solution (3 sources) [...] Daily, # 30 cap(s), Refills(s) 0, Pharmacy: [address], 156, cm, 01/07/22 13:43:00 EDT, Height/Length [...] # 2 cap(s), Refills(s) 0, [facility][id number], 156, cm, 11/26/22 8:15:00 EDT, Height/Length Dosing, [...] Discontinued Generic Substitution Allowed polyethylene glycol 3350 539309 mg / potassium chloride 2970 mg / sodium bicarbonate 6740 mg / sodium chloride 5860 mg / sodium sulfate 77430 mg powder for oral solution (8 sources) [...] 11-01-2023 Chronic Other aftercare (2 sources) Other chcf (current) drug therapy; Translations: [Other chcf (current) drug therapy] Onset: 2 Episodic Other [...] consultation, please call . ======= Performed at: [facility] [address] [place] [address] [id number] Strap Maker: Neli Kearney [facility], Phone: [phone] Specimen Comment: ToxAssure, ToxAssure FLEX or MAT drug testin Specimen Comment: -Technical component - Data analysis performed at Specimen Comment: [facility] [place], [address] [place] [address] Specimen Comment: [id number]. [phone] Strap Maker James Barrera MD. [facility] [...] [facility] Outside Recordson 12-28-2023 Outside Records [id number] Normal [facility] Physician Orderon 12-14-2023 Physician Order [id number]#1.00TIFF [facility] ED Note-Physicianon 03-14-20 ED Note-Physician [id number]#1.00CD:12 7 Normal [facility] ED Note-Physicianon 01-23-20 ED Note-Physician [id number]#1.00CD:12 7 Normal [facility] ED Note-Physician [id number]#1.00CD:12 7 [facility] Lab Reportson 01-22-2023 Lab Reports [id number]#1.00CD:12 7 [facility] Patient Correspondenceon Patient Correspondence [id number]:12 7 [facility] CULTURE URINEon 01-16-2023 CULTURE URINE Isolate [...] R F Nitrofurantoin <=16 S F Normal [facility] Comment on above: Performed By: #### U MICRO, ERUR #### [facility] [address] [place] [address] Dr. Alfredo Lizama CBC AUTO DIFFon 01-13-2023 BASO # 0.1 103/ul Normal 0.0-0.1 [facility] Comment on above: Performed By: #### U MICRO, ERUR #### [facility] [address] [place] [address] Dr. Alfredo Lizama Basophils/100 WBC (Bld) 0.7 % Normal 0.2-2.0 [facility] Comment on above: Performed By: #### U MICRO, ERUR #### [facility] [address] [place] [address] Dr. Alfredo Lizama EO # 0.3 103/ul Normal 0.0-0.7 [facility] Comment on above: Performed By: #### U MICRO, ERUR #### [facility] [address] [place] [address] Dr. Alfredo Lizama Eosinophils/100 WBC (Bld) 3.2 % Normal 0.9-7.0 [facility] Comment on above: Performed By: #### U MICRO, ERUR #### [facility] [address] [place] [address] Dr. Alfredo Lizama Erythrocyte distribution width (RBC) [Ratio] 13.0 % Normal 11.0-15.0 [facility] Comment on above: Performed By: #### U MICRO, ERUR #### [facility] [address] [place] [address] Dr. Alfredo Lizama Hematocrit (Bld) [Volume fraction] 43.2 % Normal 36.0-48.0 [facility] Comment on above: Performed By: #### U MICRO, ERUR #### [facility] [address] [place] [address] Dr. Alfredo Lizama Hemoglobin (Bld) [Mass/Vol] 14.1 g/dL Normal 12.0-16.0 [facility] Comment on above: Performed By: #### U MICRO, ERUR #### [facility] [address] [place] [address] Dr. Alfredo Lizama IG # 0.02 10e3/ul Normal 0.00-0.03 [facility] Comment on above: Performed By: #### U MICRO, ERUR #### [facility] [address] [place] [address] Dr. Alfredo Lizama IG % 0.2 % Normal 0.0-0.5 [facility] Comment on above: Performed By: #### U MICRO, ERUR #### [facility] [address] [address] [address] Alfredo Lizama LYMPH # 3.0 103/ul Normal 1.2-3.8 [facility] Comment on above: Performed By: #### U MICRO, ERUR #### [facility] [address] [place] [address] Dr. Alfredo Lizama Lymphocytes/100 WBC (Bld) 35.6 % Normal 20.5-60.0 [facility] Comment on above: Performed By: #### U MICRO, ERUR #### [facility] [address] [place] [address] Dr. Alfredo Lizama MANUAL DIFF REQ NO Normal [facility] Comment on above: Performed By: #### U MICRO, ERUR #### [facility] [address] [place] [address] Dr. Alfredo Lizama MCH (RBC) [Entitic mass] 29.4 pg Normal 26.7-34.0 [facility] Comment on above: Performed By: #### U MICRO, ERUR #### [facility] [address] [place] [address] Dr. Alfredo Lizama MCHC (RBC) [Mass/Vol] 32.6 g/dL Normal 29.9-35.2 [facility] Comment on above: Performed By: #### U MICRO, ERUR #### [facility] [address] [place] [address] Dr. Alfredo Lizama MCV (RBC) [Entitic vol] 90.0 fL Normal 81.0-99.0 [facility] Comment on above: Performed By: #### U MICRO, ERUR #### [facility] [address] [place] [address] Dr. Alfredo Lizama MONO # 0.4 103/ul Normal 0.3-0.8 [facility] Comment on above: Performed By: #### U MICRO, ERUR #### [facility] [address] [place] [address] Dr. Alfredo Lizama Monocytes/100 WBC (Bld) 4.8 % Normal 1.7-12.0 [facility] Comment on above: Performed By: #### U MICRO, ERUR #### [facility] [address] [address] [address] Alfredo Lizama NEUT # 4.7 103/ul Normal 1.4-6.5 [facility] Comment on above: Performed By: #### U MICRO, ERUR #### [facility] [address] [address] [address] Alfredo Lizama Neutrophils/100 WBC (Bld) 55.5 % Normal 43.0-75.0 [facility] Comment on above: Performed By: #### U MICRO, ERUR #### [facility] [address] [address] [address] Alfredo Lizama Platelet mean volume (Bld) [Entitic vol] 9.5 fL Normal 9.5-13.5 [facility] Comment on above: Performed By: #### U MICRO, ERUR #### [facility] [address] [address] [address] Alfredo Lizama PLT 267 103/ul Normal 150-450 [facility] Comment on above: Performed By: #### U MICRO, ERUR #### [facility] [address] [place] [address] Dr. Alfredo Lizama RBC 4.80 106/ul Normal 4.20-5.40 [facility] Comment on above: Performed By: #### U MICRO, ERUR #### [facility] [address] [address] [address] Alfredo Lizama WBC 8.5 103/ul Normal 4.0-11.0 [facility] Comment on above: Performed By: #### U MICRO, ERUR #### [facility] [address] [address] [address] Alfredo Lizama ER URINE PROFILEon 3 Bilirubin Ql (U) Negative Normal NEGATIVE [facility] Comment on above: Performed By: #### E RUR UMICRO #### [facility] [address] [place] [address] Dr. Alfredo Lizama Clarity (U) CLOUDY Abnormal CLEAR [facility] Comment on above: Performed By: #### Jacque ESTRADA UMICRO #### [facility] [address] [place] [address] Dr. Alfredo Lizama Color (U) YELLOW Normal YELLOW [facility] Comment on above: Performed By: #### Jacque ESTRADA UMICRO #### [facility] [address] [place] [address] Dr. Alfredo Lizama ERUAHD A micrscopic examina tion will be performed if indicated. Normal [facility] Comment on above: Performed By: #### Jacque ESTRADA UMICRO #### [facility] [address] [place] [address] Dr. Alfredo Lizama Glucose Ql (U) Negative Normal NEGATIVE [facility] Comment on above: Performed By: #### Jacque ESTRADA UMICRO #### [facility] [address] [place] [address] Dr. Alfredo Lizama Hemoglobin Ql (U) MODERATE Abnormal NEGATIVE [facility] Comment on above: Performed By: #### Jacque ESTRADA UMICRO #### [facility] [address] [place] [address] Dr. Alfredo Lizama Ketones Ql (U) TRACE Abnormal NEGATIVE [facility] Comment on above: Performed By: #### Jacque ESTRADA UMICRO #### [facility] [address] [place] [address] Dr. Alfredo Lizama LEUKOCYTES SMALL Abnormal NEGATIVE [facility] Comment on above: Performed By: #### Jacque ESTRADA UMICRO #### [facility] [address] [place] [address] Dr. Alfredo Lizama Nitrite Ql (U) Negative Normal NEGATIVE [facility] Comment on above: Performed By: #### Jacque ESTRADA UMICRO #### [facility] [address] [place] [address] Dr. Alfredo Lizama pH (U) 8.0 [pH] Normal 5-9 [facility] Comment on above: Performed By: #### Jacque ESTRADA UMICRO #### [facility] [address] [place] [address] Dr. Alfredo Lizama Protein (U) [Mass/Vol] 100 mg/dL Abnormal NEGAT LATISHA/ TRACE [facility] Comment on above: Performed By: #### CHINMAY CHAVESRO #### [facility] [address] [place] [address] Dr. Alfredo Lizama SPEC GRAVITY 1.015 Normal 1.005-<=1. 025 [facility] Comment on above: Performed By: #### Jacque ESTRADA UMICRO #### [facility] [address] [place] [address] Dr. Alfredo Lizama UR MICRO IND INDICATED Normal [facility] Comment on above: Performed By: #### CHINMAY CHAVESRO #### [facility] [address] [place] [address] Dr. Alfredo Lizama Urobilinogen Qn (U) 1.0 {Tesha'U}/dL Normal 0.2 - 1. 0 [facility] Comment on above: Performed By: #### CHINMAY CHAVESRO #### [facility] [address] [place] [address] Dr. Alfredo Lizama PROF CHEM 8 (BAS METB)on Anion gap [Moles/Vol] 8.4 mmol/L Normal [facility] Comment on above: Performed By: #### U MICRO, ERUR #### [facility] [address] [place] [address] Dr. Alfredo Lizama Calcium [Mass/Vol] 8.7 mg/dL Normal 8.5-10.1 [facility] Comment on above: Performed By: #### U MICRO, ERUR #### [facility] [address] [place] [address] Dr. Alfredo Lizama Chloride [Moles/Vol] 107 mmol/L Normal 98-107 [facility] Comment on above: Performed By: #### U MICRO, ERUR #### [facility] [address] [place] [address] Dr. Alfredo Lizama CO2 [Moles/Vol] 28.3 mmol/L Normal 21.0-32.0 [facility] Comment on above: Performed By: #### U MICRO, ERUR #### [facility] [address] [address] [address] Alfredo Lizama Creatinine [Mass/Vol] 0.70 mg/dL Normal 0.55-1.02 [facility] Comment on above: Performed By: #### U MICRO, ERUR #### [facility] [address] [address] [address] Alfredo Lizama EGFR-AF MONTSERRATIAN >60 Normal >=60 [facility] Comment on above: Performed By: #### U MICRO, ERUR #### [facility] [address] [address] [address] Alfredo Lizama EGFR-NON AF MONTSERRATIAN >60 Normal >=60 [facility] Comment on above: Performed By: #### U MICRO, ERUR #### [facility] [address] [address] [address] Alfredo Lizama Glucose [Mass/Vol] 97 mg/dL Normal 74-106 [facility] Comment on above: Performed By: #### U MICRO, ERUR #### [facility] [address] [address] [address] Alfredo Lizama Potassium [Moles/Vol] 3.7 mmol/L Normal 3.5-5.1 [facility] Comment on above: Performed By: #### U MICRO, ERUR #### [facility] [address] [address] [address] Alfredo Lizama Sodium [Moles/Vol] 140 mmol/L Normal 136-145 [facility] Comment on above: Performed By: #### U MICRO, ERUR #### [facility] [address] [address] [address] Alfredo Lizama Urea nitrogen [Mass/Vol] 7.0 mg/dL Normal 7.0-18.0 [facility] Comment on above: Performed By: #### U MICRO, ERUR #### [facility] [address] [address] [address] Alfredo Lizama Urea nitrogen/Creatinine [Mass ratio] 10.0 mg/mg Normal [facility] Comment on above: Performed By: #### U MICRO, ERUR #### [facility] [address] [address] [address] Alfredo Lizama URINE MICROSCOPIC ONLYon AMORPHOUS CRYSTALS FEW Normal [facility] Comment on above: Performed By: #### Jacque ESTRADA UMICRO #### [facility] [address] [place] [address] Dr. Alfredo Lizama BACTERIA LARGE Abnormal NONE SEEN [facility] Comment on above: Performed By: #### Jacque ESTRADA UMICRO #### [facility] [address] [place] [address] Dr. Alfredo Lizama Bacteria identified Cx Nom (U) INDICATED Normal [facility] Comment on above: Performed By: #### Jacque ESTRADA UMICRO #### [facility] [address] [place] [address] Dr. Alfredo Lizama CAST NONE SEEN Normal NONE SEEN [facility] Comment on above: Performed By: #### Jacque ESTRADA UMICRO #### [facility] [address] [place] [address] Dr. Alfredo Lizama Crystals LM Nom (Urine sed) SEEN Abnormal NONE SEEN [facility] Comment on above: Performed By: #### Jacque ESTRADA UMICRO #### [facility] [address] [place] [address] Dr. Alfredo Lizama Epithelial cells LM Ql (Urine sed) RARE Normal NONE SEEN /RARE [facility] Comment on above: Performed By: #### Jacque ESTRADA UMICRO #### [facility] [address] [place] [address] Dr. Alfredo Lizama MUCOUS NONE SEEN Normal NONE SEEN [facility] Comment on above: Performed By: #### Jacque ESTRADA UMICRO #### [facility] [address] [place] [address] Dr. Alfredo Lizama RBC 2-5 Abnormal 0-2 [facility] Comment on above: Performed By: #### Jacque ESTRADA UMICRO #### [facility] [address] [place] [address] Dr. Alfredo Lizama TRIPLE PHOS CRYSTALS FEW Normal [facility] Comment on above: Performed By: #### LINDA CHAVES #### [facility] [address] [address] [address] Alfredo Lizama WBC 75-100 Abnormal NONE SEEN [facility] Comment on above: Performed By: #### LINDA CHAVES #### [facility] [address], [place] [address] Dr. Alfredo Lizama Patient Letter FTon 2022 Patient [place] [facility] [place]Inserted Image. Shelly ble to display) January 10, 2023 MORALES LEE [address] [place] [address] MOARLES LEE 1975 Dear Morales, I am corresponding with you by certified mail because of repeat non compliance. You missed your catheter exchange appointment on 12/31/22. It is recommended your Alvares catheter be exchanged every 4 weeks to prevent encrustation and infection. Also you were referred to Dr Zhang at [facility] for further evaluation regarding your [...] Danya Bingham MD [facility] [address] [facility], [place] [address] [facility] CULTURE URINEon 12-25-2022 CULTURE URINE Isolate [...] Trimethoprim/Sulfamethoxa zole <=20 S F Normal [facility] Comment on above: Performed By: #### U MICRO, ERUR #### [facility] [address] [place] [address] Dr. Alfredo Lizama AMYLASEon 11-09-2022 Amylase [Catalytic activity/Vol] 14 U/L Critically low 25-115 [facility] Comment on above: Performed By: #### U MICRO, ERUR #### [facility] [address] [place] [address] Dr. Alfredo Lizama CBC AUTO DIFFon 11-09-2022 BASO # 0.1 103/ul Normal 0.0-0.1 [facility] Comment on above: Performed By: #### U MICRO, ERUR #### [facility] [address] [place] [address] Dr. Alfredo Lizama Basophils/100 WBC (Bld) 0.8 % Normal 0.2-2.0 [facility] Comment on above: Performed By: #### U MICRO, ERUR #### [facility] [address] [place] [address] Dr. Alfredo Lizama EO # 0.2 103/ul Normal 0.0-0.7 [facility] Comment on above: Performed By: #### U MICRO, ERUR #### [facility] [address] [place] [address] Dr. Alfredo Lizama Eosinophils/100 WBC (Bld) 2.5 % Normal 0.9-7.0 [facility] Comment on above: Performed By: #### U MICRO, ERUR #### [facility] [address] [place] [address] Dr. Alfredo Lizama Erythrocyte distribution width (RBC) [Ratio] 12.7 % Normal 11.0-15.0 [facility] Comment on above: Performed By: #### U MICRO, ERUR #### [facility] [address] [place] [address] Dr. Alfredo Lizama Hematocrit (Bld) [Volume fraction] 46.3 % Normal 36.0-48.0 [facility] Comment on above: Performed By: #### U MICRO, ERUR #### [facility] [address] [place] [address] Dr. Alfredo Lizama Hemoglobin (Bld) [Mass/Vol] 15.9 g/dL Normal 12.0-16.0 [facility] Comment on above: Performed By: #### U MICRO, ERUR #### [facility] [address] [place] [address] Dr. Alfredo Lizama IG # 0.02 10e3/ul Normal 0.00-0.03 [facility] Comment on above: Performed By: #### U MICRO, ERUR #### [facility] [address] [place] [address] Dr. Alfredo Lizama IG % 0.2 % Normal 0.0-0.5 [facility] Comment on above: Performed By: #### U MICRO, ERUR #### [facility] [address] [place] [address] Dr. Alfredo Lizama LYMPH # 2.6 103/ul Normal 1.2-3.8 [facility] Comment on above: Performed By: #### U MICRO, ERUR #### [facility] [address] [place] [address] Dr. Alfredo Lizama Lymphocytes/100 WBC (Bld) 31.3 % Normal 20.5-60.0 [facility] Comment on above: Performed By: #### U MICRO, ERUR #### [facility] [address] [place] [address] Dr. Alfredo Lizama MANUAL DIFF REQ NO Normal [facility] Comment on above: Performed By: #### U MICRO, ERUR #### [facility] [address] [place] [address] Dr. Alfredo Lizama MCH (RBC) [Entitic mass] 29.3 pg Normal 26.7-34.0 [facility] Comment on above: Performed By: #### U MICRO, ERUR #### [facility] [address] [place] [address] Dr. Alfredo Lizama MCHC (RBC) [Mass/Vol] 34.3 g/dL Normal 29.9-35.2 [facility] Comment on above: Performed By: #### U MICRO, ERUR #### [facility] [address] [address] [address] Alfredo Lizama MCV (RBC) [Entitic vol] 85.4 fL Normal 81.0-99.0 [facility] Comment on above: Performed By: #### U MICRO, ERUR #### [facility] [address] [place] [address] Dr. Alfredo Lizama MONO # 0.6 103/ul Normal 0.3-0.8 [facility] Comment on above: Performed By: #### U MICRO, ERUR #### [facility] [address] [place] [address] Dr. Alfredo Lizama Monocytes/100 WBC (Bld) 6.6 % Normal 1.7-12.0 [facility] Comment on above: Performed By: #### U MICRO, ERUR #### [facility] [address] [place] [address] Dr. Alfredo Lizama NEUT # 4.9 103/ul Normal 1.4-6.5 [facility] Comment on above: Performed By: #### U MICRO, ERUR #### [facility] [address] [place] [address] Dr. Alfredo Lizama Neutrophils/100 WBC (Bld) 58.6 % Normal 43.0-75.0 [facility] Comment on above: Performed By: #### U MICRO, ERUR #### [facility] [address] [place] [address] Dr. Alfredo Lizama Platelet mean volume (Bld) [Entitic vol] 9.5 fL Normal 9.5-13.5 [facility] Comment on above: Performed By: #### U MICRO, ERUR #### [facility] [address] [place] [address] Dr. Alfredo Lizama PLT 273 103/ul Normal 150-450 [facility] Comment on above: Performed By: #### U MICRO, ERUR #### [facility] [address] [place] [address] Dr. Alfredo Lizama RBC 5.42 106/ul Critically high 4.20-5.40 [facility] Comment on above: Performed By: #### U MICRO, ERUR #### [facility] [address] [place] [address] Dr. Alfredo Lizama WBC 8.4 103/ul Normal 4.0-11.0 [facility] Comment on above: Performed By: #### U MICRO, ERUR #### [facility] [address] [place] [address] Dr. Alfredo Lizama CULTURE URINEon 11-09-2022 CULTURE URINE Culture Observations : MODERATE GROWTH OF MIXED GENITAL ROSANNA. NO POTENTIAL PATHOGENS SEEN. Normal [facility] Comment on above: Performed By: #### U MICRO, ERUR #### [facility] [address] [place] [address] Dr. Alfredo Lizama ER URINE PROFILEon 3 Bilirubin Ql (U) Negative Normal NEGATIVE [facility] Comment on above: Performed By: #### U MICRO, ERUR #### [facility] [address] [place] [address] Dr. Alfredo Lizama Clarity (U) CLEAR Normal CLEAR [facility] Comment on above: Performed By: #### U MICRO, ERUR #### [facility] [address] [place] [address] Dr. Alfredo Lizama Color (U) LT. YELLOW Normal YELLOW [facility] Comment on above: Performed By: #### U MICRO, ERUR #### [facility] [address] [place] [address] Dr. Alfredo Lizama ERUAHD A micrscopic examina tion will be performed if indicated. Normal [facility] Comment on above: Performed By: #### U MICRO, ERUR #### [facility] [address] [place] [address] Dr. Alfredo Lizama Glucose Ql (U) Negative Normal NEGATIVE [facility] Comment on above: Performed By: #### U MICRO, ERUR #### [facility] [address] [place] [address] Dr. Alfredo Lizama Hemoglobin Ql (U) MODERATE Abnormal NEGATIVE [facility] Comment on above: Performed By: #### U MICRO, ERUR #### [facility] [address] [place] [address] Dr. Alfredo Lizama Ketones Ql (U) Negative Normal NEGATIVE [facility] Comment on above: Performed By: #### U MICRO, ERUR #### [facility] [address] [place] [address] Dr. Alfredo Lizama LEUKOCYTES LARGE Abnormal NEGATIVE [facility] Comment on above: Performed By: #### U MICRO, ERUR #### [facility] [address] [address] [address] Alfredo Lizama Nitrite Ql (U) Negative Normal NEGATIVE [facility] Comment on above: Performed By: #### U MICRO, ERUR #### [facility] [address] [place] [address] Dr. Alfredo Lizama pH (U) 7.0 [pH] Normal 5-9 [facility] Comment on above: Performed By: #### U MICRO, ERUR #### [facility] [address] [place] [address] Dr. Alfredo Lizama SPEC GRAVITY 1.015 Normal 1.005-<=1. 025 [facility] Comment on above: Performed By: #### U MICRO, ERUR #### [facility] [address] [place] [address] Dr. Alfredo Lizama UA PROTEIN Negative Normal NEGATIVE/ TRACE [facility] Comment on above: Performed By: #### U MICRO, ERUR #### [facility] [address] [place] [address] Dr. Alfredo Lizama UR MICRO IND INDICATED Normal [facility] Comment on above: Performed By: #### U MICRO, ERUR #### [facility] [address] [place] [address] Dr. Alfredo Lizama Urobilinogen Qn (U) 0.2 {Tesha'U}/dL Normal 0.2 - 1. 0 [facility] Comment on above: Performed By: #### U MICRO, ERUR #### [facility] [address] [place] [address] Dr. Alfredo Lizama LIPASEon 11-09-2022 Lipase [Catalytic activity/Vol] 34.0 U/L Critically low 73.0-393.0 [facility] Comment on above: Performed By: #### U MICRO, ERUR #### [facility] [address] [place] [address] Dr. Alfredo Lizama PROF 14(COMP METB)on 023 Albumin [Mass/Vol] 4.0 g/dL Normal 3.4-5.0 [facility] Comment on above: Performed By: #### U MICRO, ERUR #### [facility] [address] [place] [address] Dr. Alfredo Lizama Albumin/Globulin [Mass ratio] 1.0 {ratio} Normal [facility] Comment on above: Performed By: #### U MICRO, ERUR #### [facility] [address] [place] [address] Dr. Alfredo Lizama ALP [Catalytic activity/Vol] 206 U/L Critically high 46-116 [facility] Comment on above: Performed By: #### U MICRO, ERUR #### [facility] [address] [place] [address] Dr. Alfredo Lizama ALT [Catalytic activity/Vol] 53 U/L Normal 14-59 [facility] Comment on above: Performed By: #### U MICRO, ERUR #### [facility] [address] [place] [address] Dr. Alfredo Lizama Anion gap [Moles/Vol] 14.5 mmol/L Normal [facility] Comment on above: Performed By: #### U MICRO, ERUR #### [facility] [address] [place] [address] Dr. Alfredo Lizama AST [Catalytic activity/Vol] 55 U/L Critically high 15-37 [facility] Comment on above: Performed By: #### U MICRO, ERUR #### [facility] [address] [place] [address] Dr. Alfredo Lizama Bilirubin [Mass/Vol] 0.7 mg/dL Normal 0.2-1.0 [facility] Comment on above: Performed By: #### U MICRO, ERUR #### [facility] [address] [address] [address] Alfredo Lizama Calcium [Mass/Vol] 9.0 mg/dL Normal 8.5-10.1 [facility] Comment on above: Performed By: #### U MICRO, ERUR #### [facility] [address] [address] [address] Alfredo Lizama Chloride [Moles/Vol] 100 mmol/L Normal 98-107 [facility] Comment on above: Performed By: #### U MICRO, ERUR #### [facility] [address] [place] [address] Dr. Alfredo Lizama CO2 [Moles/Vol] 28.3 mmol/L Normal 21.0-32.0 [facility] Comment on above: Performed By: #### U MICRO, ERUR #### [facility] [address] [place] [address] Dr. Alfredo Lizama Creatinine [Mass/Vol] 0.65 mg/dL Normal 0.55-1.02 [facility] Comment on above: Performed By: #### U MICRO, ERUR #### [facility] [address] [place] [address] Dr. Alfredo Lizama EGFR-AF MONTSERRATIAN >60 Normal >=60 [facility] Comment on above: Performed By: #### U MICRO, ERUR #### [facility] [address] [place] [address] Dr. Alfredo Lizama EGFR-NON AF MONTSERRATIAN >60 Normal >=60 [facility] Comment on above: Performed By: #### U MICRO, ERUR #### [facility] [address] [address] [address] Alfredo Lizama Globulin (S) [Mass/Vol] 3.9 g/dL Normal [facility] Comment on above: Performed By: #### U MICRO, ERUR #### [facility] [address] [place] [address] Dr. Alfredo Lizama Glucose [Mass/Vol] 134 mg/dL Critically high 74-106 [facility] Comment on above: Performed By: #### U MICRO, ERUR #### [facility] [address] [place] [address] Dr. Alfredo Lizama Potassium [Moles/Vol] 3.8 mmol/L Normal 3.5-5.1 [facility] Comment on above: Performed By: #### U MICRO, ERUR #### [facility] [address] [place] [address] Dr. Alfredo Lizama Protein [Mass/Vol] 7.9 g/dL Normal 6.4-8.2 [facility] Comment on above: Performed By: #### U MICRO, ERUR #### [facility] [address] [place] [address] Dr. Alfredo Lizama Sodium [Moles/Vol] 139 mmol/L Normal 136-145 [facility] Comment on above: Performed By: #### U MICRO, ERUR #### [facility] [address] [place] [address] Dr. Alfredo Lizama Urea nitrogen [Mass/Vol] 7.0 mg/dL Normal 7.0-18.0 [facility] Comment on above: Performed By: #### U MICRO, ERUR #### [facility] [address] [place] [address] Dr. Alfredo Lizama Urea nitrogen/Creatinine [Mass ratio] 10.7 mg/mg Normal [facility] Comment on above: Performed By: #### U MICRO, ERUR #### [facility] [address] [place] [address] Dr. Alfredo Lizama URINE MICROSCOPIC ONLYon BACTERIA TRACE Abnormal NONE SEEN [facility] Comment on above: Performed By: #### U MICRO, ERUR #### [facility] [address] [place] [address] Dr. Alfredo Lizama Bacteria identified Cx Nom (U) INDICATED Normal [facility] Comment on above: Performed By: #### U MICRO, ERUR #### [facility] [address] [place] [address] Dr. Alfredo Lizama CAST NONE SEEN Normal NONE SEEN [facility] Comment on above: Performed By: #### U MICRO, ERUR #### [facility] [address] [place] [address] Dr. Alfredo Lizama Crystals LM Nom (Urine sed) NONE SEEN Normal NONE SEEN [facility] Comment on above: Performed By: #### U MICRO, ERUR #### [facility] [address] [place] [address] Dr. Alfredo Lizama Epithelial cells LM Ql (Urine sed) FEW Abnormal NONE SEEN /RARE [facility] Comment on above: Performed By: #### U MICRO, ERUR #### [facility] [address] [place] [address] Dr. Alfredo Lizama MUCOUS NONE SEEN Normal NONE SEEN [facility] Comment on above: Performed By: #### U MICRO, ERUR #### [facility] [address] [place] [address] Dr. Alfredo Lizama RBC 20-50 Abnormal 0-2 [facility] Comment on above: Performed By: #### U MICRO, ERUR #### [facility] [address] [place] [address] Dr. Alfredo Lizama WBC 20-50 Abnormal NONE SEEN [facility] Comment on above: Performed By: #### U MICRO, ERUR #### [facility] [address] [place] [address] Dr. Alfredo Lizama XR ABD FLAT_UPon 11-09-2022 [...] ENRIQUE LOWE Date: 2022-11-09 11:06 Normal [facility] CULTURE URINEon 10-18-2022 CULTURE [...] Trimethoprim/Sulfamethoxa zole <=10 S F Normal [facility] Comment on above: Performed By: #### U MICRO, ERUR #### [facility] [address] [place] [address] Dr. Alfredo Lizama ER URINE PROFILEon 3 Bilirubin Ql (U) Negative Normal NEGATIVE [facility] Comment on above: Performed By: #### LINDA CHAVES #### [facility] [address] [place] [address] Dr. Alfredo Lizama Clarity (U) CLEAR Normal CLEAR [facility] Comment on above: Performed By: #### CHINMAY CHAVESRO #### [facility] [address] [place] [address] Dr. Alfredo Lizama Color (U) YELLOW Normal YELLOW [facility] Comment on above: Performed By: #### FER CHAVESICRO #### [facility] [address] [place] [address] Dr. Alfredo RAYMUNDO A micrscopic examina tion will be performed if indicated. Normal [facility] Comment on above: Performed By: #### Jacque ESTRADA UMICRO #### [facility] [address] [place] [address] Dr. Alfredo Lizama Glucose Ql (U) Negative Normal NEGATIVE [facility] Comment on above: Performed By: #### Jacque ESTRADA UMICRO #### [facility] [address] [place] [address] Dr. Alfredo Lizama Hemoglobin Ql (U) LARGE Abnormal NEGATIVE [facility] Comment on above: Performed By: #### Jacque ESTRADA UMICRO #### [facility] [address] [place] [address] Dr. Alfredo Lizama Ketones Ql (U) Negative Normal NEGATIVE [facility] Comment on above: Performed By: #### Jacque ESTRADA UMICRO #### [facility] [address] [place] [address] Dr. Alfredo Lizmaa LEUKOCYTES LARGE Abnormal NEGATIVE [facility] Comment on above: Performed By: #### Jacque ESTRADA UMICRO #### [facility] [address] [place] [address] Dr. Alfredo Lizama Nitrite Ql (U) Positive Abnormal NEGATIVE [facility] Comment on above: Performed By: #### Jacque ESTRADA UMICRO #### [facility] [address] [place] [address] Dr. Alfredo Lizama pH (U) 6.5 [pH] Normal 5-9 [facility] Comment on above: Performed By: #### FER CHAVESICRO #### [facility] [address] [place] [address] Dr. Alfredo Lizama Protein (U) [Mass/Vol] 100 mg/dL Abnormal NEGAT LATISHA/ TRACE [facility] Comment on above: Performed By: #### Jacque ESTRADA UMICRO #### [facility] [address] [place] [address] Dr. Alfredo Lziama SPEC GRAVITY 1.010 Normal 1.005-<=1. 025 [facility] Comment on above: Performed By: #### CHINMAY CHAVESRO #### [facility] [address] [place] [address] Dr. Alfredo Lizama UR MICRO IND INDICATED Normal [facility] Comment on above: Performed By: #### FER CHAVESICRO #### [facility] [address] [place] [address] Dr. Alfredo Lizama Urobilinogen Qn (U) 1.0 {Tesha'U}/dL Normal 0.2 - 1. 0 [facility] Comment on above: Performed By: #### E RURLINDA #### [facility] [address] [place] [address] Dr. Alfredo Lizama URINE MICROSCOPIC ONLYon BACTERIA MODERATE Abnormal NONE SEEN [facility] Comment on above: Performed By: #### U MICRO, ERUR #### [facility] [address] [place] [address] Dr. Alfredo Lizama Bacteria identified Cx Nom (U) INDICATED Normal [facility] Comment on above: Performed By: #### U MICRO, ERUR #### [facility] [address] [place] [address] Dr. Alfredo Lizama CA OX CRYSTALS RARE Normal [facility] Comment on above: Performed By: #### U MICRO, ERUR #### [facility] [address] [place] [address] Dr. Alfredo Lizama CAST NONE SEEN Normal NONE SEEN [facility] Comment on above: Performed By: #### U MICRO, ERUR #### [facility] [address] [place] [address] Dr. Alfredo Lizama Crystals LM Nom (Urine sed) SEEN Abnormal NONE SEEN [facility] Comment on above: Performed By: #### U MICRO, ERUR #### [facility] [address] [place] [address] Dr. Alfredo Lizama Epithelial cells LM Ql (Urine sed) MODERATE Abnormal NONE SEEN /RARE [facility] Comment on above: Performed By: #### U MICRO, ERUR #### [facility] [address] [place] [address] Dr. Alfredo Lizama MUCOUS TRACE Abnormal NONE SEEN [facility] Comment on above: Performed By: #### U MICRO, ERUR #### [facility] [address] [place] [address] Dr. Alfredo Lizama RBC 20-50 Abnormal 0-2 [facility] Comment on above: Performed By: #### U MICRO, ERUR #### [facility] [address] [place] [address] Dr. Alfredo Lizama WBC 50-75 Abnormal NONE SEEN [facility] Comment on above: Performed By: #### U MICRO, ERUR #### [facility] [address] [place] [address] Dr. Alfredo Lizama Covid-19 PCR ([facility])on 08-06 SARS-CoV-2 (COVID-19) RNA ADRIÁN+probe Ql (Unsp spec) Not detected Normal NOT DETECTED [facility] Comment on above: Result Comment: When diagnostic [...] for this test is supported by the [place] [employer] and [employer] Service's declaration that [...] Performed By: #### U MICRO, ERUR #### [facility] [address] [place] [address] Dr. Alfredo Lizama CBC AUTO DIFFon 08-24-2022 BASO # 0.1 103/ul Normal 0.0-0.1 [facility] Comment on above: Performed By: #### C BC #### [facility] [address] [place] [address] Dr. Alfredo Lizama Basophils/100 WBC (Bld) 0.8 % Normal 0.2-2.0 [facility] Comment on above: Performed By: #### C BC #### [facility] [address] [place] [address] Dr. Alfredo Lizama EO # 0.3 103/ul Normal 0.0-0.7 [facility] Comment on above: Performed By: #### C BC #### [facility] [address] [place] [address] Dr. Alfredo Lizama Eosinophils/100 WBC (Bld) 3.1 % Normal 0.9-7.0 [facility] Comment on above: Performed By: #### C BC #### [facility] [address] [place] [address] Dr. Alfredo Lizama Erythrocyte distribution width (RBC) [Ratio] 13.4 % Normal 11.0-15.0 [facility] Comment on above: Performed By: #### C BC #### [facility] [address] [place] [address] Dr. Alfredo Lizama Hematocrit (Bld) [Volume fraction] 47.2 % Normal 36.0-48.0 [facility] Comment on above: Performed By: #### C BC #### [facility] [address] [place] [address] Dr. Alfredo Lizama Hemoglobin (Bld) [Mass/Vol] 15.6 g/dL Normal 12.0-16.0 [facility] Comment on above: Performed By: #### C BC #### [facility] [address] [place] [address] Dr. Alfredo Lizama IG # 0.02 10e3/ul Normal 0.00-0.03 [facility] Comment on above: Performed By: #### C BC #### [facility] [address] [place] [address] Dr. Alfredo Lizama IG % 0.2 % Normal 0.0-0.5 [facility] Comment on above: Performed By: #### C BC #### [facility] [address] [place] [address] Dr. Alfredo Lizama LYMPH # 4.4 103/ul Critically high 1.2-3.8 [facility] Comment on above: Performed By: #### C BC #### [facility] [address] [place] [address] Dr. Alfredo Lizama Lymphocytes/100 WBC (Bld) 42.3 % Normal 20.5-60.0 [facility] Comment on above: Performed By: #### C BC #### [facility] [address] [place] [address] Dr. Alfredo Lizama MANUAL DIFF REQ NO Normal [facility] Comment on above: Performed By: #### C BC #### [facility] [address] [place] [address] Dr. Alfredo Lizama MCH (RBC) [Entitic mass] 28.8 pg Normal 26.7-34.0 [facility] Comment on above: Performed By: #### C BC #### [facility] [address] [place] [address] Dr. Alfredo Lizama MCHC (RBC) [Mass/Vol] 33.1 g/dL Normal 29.9-35.2 [facility] Comment on above: Performed By: #### C BC #### [facility] [address] [place] [address] Dr. Alfredo Lizama MCV (RBC) [Entitic vol] 87.2 fL Normal 81.0-99.0 [facility] [facility] Comment on above: Performed By: #### C BC #### [facility] [address] [place] [address] Dr. Alfredo Lizama MONO # 0.6 103/ul Normal 0.3-0.8 [facility] Comment on above: Performed By: #### C BC #### [facility] [address] [place] [address] Dr. Alfredo Lizama Monocytes/100 WBC (Bld) 5.3 % Normal 1.7-12.0 [facility] Comment on above: Performed By: #### C BC #### [facility] [address] [place] [address] Dr. Alfredo Lizama NEUT # 5.0 103/ul Normal 1.4-6.5 [facility] Comment on above: Performed By: #### C BC #### [facility] [address] [place] [address] Dr. Alfredo Lizama Neutrophils/100 WBC (Bld) 48.3 % Normal 43.0-75.0 [facility] Comment on above: Performed By: #### C BC #### [facility] [address] [address] [address] Alfredo Lizama Platelet mean volume (Bld) [Entitic vol] 9.9 fL Normal 9.5-13.5 [facility] Comment on above: Performed By: #### C BC #### [facility] [address] [place] [address] Dr. Alfredo Lizama PLT 298 103/ul Normal 150-450 [facility] Comment on above: Performed By: #### C BC #### [facility] [address] [address] [address] Alfredo Lizama RBC 5.41 106/ul Critically high 4.20-5.40 [facility] Comment on above: Performed By: #### C BC #### [facility] [address] [place] [address] Dr. Alfredo Lizama WBC 10.3 103/ul Normal 4.0-11.0 [facility] Comment on above: Performed By: #### C BC #### [facility] [address] [place] [address] Dr. Alfredo Lizama PROF CHEM 8 (BAS METB)on Anion gap [Moles/Vol] 14.3 mmol/L Normal [facility] Comment on above: Performed By: #### U MICRO, ERUR #### [facility] [address] [place] [address] Dr. Alfredo Lizama Calcium [Mass/Vol] 9.1 mg/dL Normal 8.5-10.1 [facility] Comment on above: Performed By: #### U MICRO, ERUR #### [facility] [address] [place] [address] Dr. Alfredo Lizama Chloride [Moles/Vol] 99 mmol/L Normal 98-107 [facility] Comment on above: Performed By: #### U MICRO, ERUR #### [facility] [address] [place] [address] Dr. Alfredo Lizama CO2 [Moles/Vol] 29.0 mmol/L Normal 21.0-32.0 [facility] Comment on above: Performed By: #### U MICRO, ERUR #### [facility] [address] [place] [address] Dr. Alfredo Lizama Creatinine [Mass/Vol] 0.70 mg/dL Normal 0.55-1.02 [facility] Comment on above: Performed By: #### U MICRO, ERUR #### [facility] [address] [address] [address] Alfredo Lizama EGFR-AF MONTSERRATIAN >60 Normal >=60 [facility] Comment on above: Performed By: #### U MICRO, ERUR #### [facility] [address] [place] [address] Dr. Alfredo Lizama EGFR-NON AF MONTSERRATIAN >60 Normal >=60 [facility] Comment on above: Performed By: #### U MICRO, ERUR #### [facility] [address] [place] [address] Dr. Alfredo Lizama Glucose [Mass/Vol] 121 mg/dL Critically high 74-106 [facility] Comment on above: Performed By: #### U MICRO, ERUR #### [facility] [address] [address] [address] Alfredo Lizama Potassium [Moles/Vol] 3.3 mmol/L Critically low 3.5-5.1 [facility] Comment on above: Performed By: #### U MICRO, ERUR #### [facility] [address] [place] [address] Dr. Alfredo Lizama Sodium [Moles/Vol] 139 mmol/L Normal 136-145 [facility] Comment on above: Performed By: #### U MICRO, ERUR #### [facility] [address] [address] [address] Alfredo Lizama Urea nitrogen [Mass/Vol] 5.0 mg/dL Critically low 7.0-18. 0 [facility] Comment on above: Performed By: #### U MICRO, ERUR #### [facility] [address] [address] [address] Alfredo Lizama Urea nitrogen/Creatinine [Mass ratio] 7.1 mg/mg Normal [facility] Comment on above: Performed By: #### U MICRO, ERUR #### [facility] [address] [place] [address] Dr. Alfredo Lizama PROTIMEon 08-24-2022 INR Coag (PPP) [Relative time] 0.99 {INR} Normal [facility] Comment on above: Performed By: #### P T, PTT #### [facility] [address] [place] [address] Dr. Alfredo Lizama INR GUIDELINES SEE BELOW Normal [facility] Comment on above: Result Comment: MARY JO RED INR: 2.0 - 3.0 CONDITIONS NOT LISTED BELOW 2.5 - 3.5 FOR PROSTHETIC HEART VALVE REPLACEMENT 2.5 - 3.5 RECURRENT THROMBOSIS Performed By: #### P T, PTT #### [facility] [address] [place] [address] Dr. Alfredo Lizama PT Coag (PPP) [Time] 10.7 s Normal 9.0-11.6 [facility] Comment on above: Performed By: #### P T, PTT #### [facility] [address] [place] [address] Dr. Alfredo Lizama PTTon 08-24-2022 aPTT Coag (Bld) [Time] 31.7 s Normal 22.3-36.2 [facility] Comment on above: Performed By: #### P T, PTT #### [facility] [address] [place] [address] Dr. Alfredo Lizama BN SACRUM/COCCYX, MIN 2 [...] 09/20/2019. Thoracolumbar spine radiographs 09/08/2021. ACCESSION NUMBER(S): [id number]; [id number]; [id number] ORDERING CLINICIAN: CANDICE PEREZ FINDINGS: Three views [...] 09/20/2019. Thoracolumbar spine radiographs 09/08/2021. ACCESSION NUMBER(S): [id number]; [id number]; [id number] ORDERING CLINICIAN: CANDICE PEREZ FINDINGS: Three views [...] 09/20/2019. Thoracolumbar spine radiographs 09/08/2021. ACCESSION NUMBER(S): [id number]; [id number]; [id number] ORDERING CLINICIAN: CANDICE HEERSINK FINDINGS: Three views [...] signed by: GOMEZ JAMA MD Normal [facility] CBC AND DIFFERENTIALon 06-07 % AUTOMATED IMMATURE GRAN 0.2 % Normal 0.0 - 0.9 [facility] Comment on above: Result Comment: Jaleesa ture Granulocyte Count (IG) includes promyelocytes, myelocytes and metamyelocytes but does not include bands. Percent differential counts (%) should be interpreted in the context of the absolute cell counts (cells/L). Performed By: #### R ENAL #### [facility] [address] [place] [address] Basophils (Bld) [#/Vol] 0.09 10*3/uL Normal 0.00 - 0.10 [facility] Comment on above: Performed By: #### R ENAL #### [facility] [address] [place] [address] Basophils/100 WBC (Bld) 1.0 % Normal 0.0 - 2.0 [facility] Comment on above: Performed By: #### R ENAL #### [facility] [address] [place] [address] Eosinophils (Bld) [#/Vol] 0.24 10*3/uL Normal 0.00 - 0.70 [facility] Comment on above: Performed By: #### R ENAL #### [facility] [address] [place] [address] Eosinophils/100 WBC (Bld) 2.6 % Normal 0.0 - 6.0 [facility] Comment on above: Performed By: #### R ENAL #### [facility] [address] [place] [address] Erythrocyte distribution width (RBC) [Ratio] 12.9 % Normal 11.5 - 14.5 [facility] Comment on above: Performed By: #### R ENAL #### [facility] [address] [place] [address] Hematocrit (Bld) [Volume fraction] 48.4 % High 36.0 - 46.0 [facility] Comment on above: Performed By: #### R ENAL #### [facility] [address] [place] [address] Hemoglobin (Bld) [Mass/Vol] 17.1 g/dL High 12.0 - 16.0 [facility] Comment on above: Performed By: #### R ENAL #### [facility] [address] [place] [address] Lymphocytes (Bld) [#/Vol] 2.93 10*3/uL Normal 1.20 - 4.80 [facility] Comment on above: Performed By: #### R ENAL #### [facility] [address] [place] [address] Lymphocytes/100 WBC (Bld) 31.9 % Normal 13.0 - 44.0 [facility] Comment on above: Performed By: #### R ENAL #### [facility] [address] [place] [address] MCHC (RBC) [Mass/Vol] 35.3 g/dL Normal 32.0 - 36.0 [facility] Comment on above: Performed By: #### R ENAL #### [facility] [address] [place] [address] MCV (RBC) [Entitic vol] 85 fL Normal 80 - 100 [facility] Comment on above: Performed By: #### R ENAL #### [facility] [address] [place] [address] Monocytes (Bld) [#/Vol] 0.36 10*3/uL Normal 0.10 - 1.00 [facility] Comment on above: Performed By: #### R ENAL #### [facility] [address] [place] [address] Monocytes/100 WBC (Bld) 3.9 % Normal 2.0 - 10.0 [facility] Comment on above: Performed By: #### R ENAL #### [facility] [address] [place] [address] Neutrophils (Bld) [#/Vol] 5.54 10*3/uL Normal 1.20 - 7.70 [facility] Comment on above: Performed By: #### R ENAL #### [facility] [address] [place] [address] Neutrophils/100 WBC (Bld) 60.4 % Normal 40.0 - 80.0 [facility] Comment on above: Performed By: #### R ENAL #### [facility] [address] [place] [address] NUCLEATED RBC 0.0 /100 WBC Normal 0.0-0.0 [facility] Comment on above: Performed By: #### R ENAL #### [facility] [address] [place] [address] Platelets (Bld) [#/Vol] 365 10*3/uL Normal 150 - 450 [facility] Comment on above: Performed By: #### R ENAL #### [facility] [address] [place] [address] RBC 5.69 x10E12/L High 4.00 - 5.20 [facility] Comment on above: Performed By: #### R ENAL #### [facility] [address] [place] [address] WBC (Bld) [#/Vol] 9.2 10*3/uL Normal 4.4 - 11.3 [facility] Comment on above: Performed By: #### R ENAL #### [facility] [address] [place] [address] COMPREHENSIVE PANELon 2021 Albumin [Mass/Vol] 4.6 g/dL Normal 3.4 - 5.0 [facility] Comment on above: Performed By: #### R ENAL #### [facility] [address] [place] [address] ALP [Catalytic activity/Vol] 192 U/L High 33 - 110 [facility] Comment on above: Performed By: #### R ENAL #### [facility] [address] [place] [address] ALT [Catalytic activity/Vol] 33 U/L Normal 7 - 45 [facility] Comment on above: Result Comment: Melly ents treated with Sulfasalazine may generate falsely decreased results for ALT. Performed By: #### R ENAL #### [facility] [address] [place] [address] Anion gap [Moles/Vol] 16 mmol/L Normal 10 - 20 [facility] Comment on above: Performed By: #### R ENAL #### [facility] [address] [place] [address] AST [Catalytic activity/Vol] 51 U/L High 9 - 39 [facility] Comment on above: Performed By: #### R ENAL #### [facility] [address] [place] [address] Bilirubin [Mass/Vol] 0.5 mg/dL Normal 0.0 - 1.2 [facility] Comment on above: Performed By: #### R ENAL #### [facility] [address] [place] [address] Calcium [Mass/Vol] 10.3 mg/dL Normal 8.6 - 10.6 [facility] Comment on above: Performed By: #### R ENAL #### [facility] [address] [place] [address] Chloride [Moles/Vol] 101 mmol/L Normal 98 - 107 [facility] Comment on above: Performed By: #### R ENAL #### [facility] [address] [place] [address] Creatinine [Mass/Vol] 0.61 mg/dL Normal 0.50 - 1.05 [facility] Comment on above: Performed By: #### R ENAL #### [facility] [address] [place] [address] eGFR FEMALE >90 Normal >90 [facility] Comment on above: Result Comment: CALC ULATIONS OF ESTIMATED GFR ARE PERFORMED USING THE 2020 CKD-EPI STUDY REFIT EQUATION WITHOUT THE RACE VARIABLE FOR THE IDMS-TRACEABLE CREATININE METHODS. https://jasn.asnjournals.org/content/early/ASN.918 0194100 Performed By: #### R ENAL #### [facility] [address] [place] [address] Glucose [Mass/Vol] 100 mg/dL High 74 - 99 [facility] Comment on above: Performed By: #### R ENAL #### [facility] [address] [place] [address] HCO3 (Bld) [Moles/Vol] 27 mmol/L Normal 21 - 32 [facility] Comment on above: Performed By: #### R ENAL #### [facility] [address] [place] [address] Potassium [Moles/Vol] 3.8 mmol/L Normal 3.5 - 5.3 [facility] Comment on above: Performed By: #### R ENAL #### [facility] [address] [place] [address] Protein [Mass/Vol] 8.2 g/dL Normal 6.4 - 8.2 [facility] Comment on above: Performed By: #### R ENAL #### [facility] [address] [place] [address] Sodium [Moles/Vol] 140 mmol/L Normal 136 - 145 [facility] Comment on above: Performed By: #### R ENAL #### [facility] [address] [place] [address] Urea nitrogen [Mass/Vol] 5 mg/dL Low 6 - 23 [facility] Comment on above: Performed By: #### R ENAL #### [facility] [address] [place] [address] Consult - Neuro-Surgeryon Consult - Neuro-Surgery Service: [...] 07-Jun-2022 11:22 by Perez Carlisle) Normal [facility] NR CT L-SPINE WO CONTRASTon 06-07-[address] L-SPINE WO CONTRAST Patient Name: MORALES LEE STUDY: CT T-SPINE WO CONTRAST; CT L-SPINE WO CONTRAST 06/06/2022 11:03 pm INDICATION: ok, Lie Flat: Yes COMPARISON: 09/20/2021 MRI and 09/18/2021 CT ACCESSION NUMBER(S): [id number]; [id number] ORDERING CLINICIAN: CANDICE PEREZ TECHNIQUE: Axial CT [...] osseous spinal canal or neural foraminal stenosis. [id number] spinal canal and neural foraminal narrowing described [...] signed by: CELI MCNEIL DO Normal [facility] NR CT T-SPINE WO CONTRASTon 06-07-[address] T-SPINE WO CONTRAST Patient Name: MORALES LEE STUDY: CT T-SPINE WO CONTRAST; CT L-SPINE WO CONTRAST 06/06/2022 11:03 pm INDICATION: ok, Lie Flat: Yes COMPARISON: 09/20/2021 MRI and 09/18/2021 CT ACCESSION NUMBER(S): [id number]; [id number] ORDERING CLINICIAN: CANDICE PEREZ TECHNIQUE: Axial CT [...] osseous spinal canal or neural foraminal stenosis. [id number] spinal canal and neural foraminal narrowing described [...] Electronically signed by: DO Andrei TOURE [facility] Provider Note - ED Care [...] Notes, Clinical Impression, Attestation, Chart Review, Scores oYny Aguirre (DO) (Signed 21-Jun-2022 06:18) Authored: Attestation, Chart Review Co-Signer: ED Notes, Clinical Impression, Attestation, Chart Review, Scores Last Updated: 21-Jun-2022 06:18 by Yony Aguirre () Normal [facility] Provider Note - ED v3on [...] M21.37 (more content not included)... Normal [facility] Triage - EDon 06-06-2022 Triage [...] BMI (kg/m2): 34.793 Calculated BSA (m2) 1.94 Mcdonald Coma Scale: Best Eye Response: (E4) spontaneous Best Motor Response: (M6) obeys commands Best Verbal Response: (V5) oriented Mcdonald Score: 15 Mask applied: yes Patient has [...] 19:07 by Meghan Chavez (MERA) Normal [facility] CULTURE URINEon 05-10-2022 CULTURE URINE [...] F Trimethoprim/Sulfamethoxa zole <=20 S F Normal [facility] Comment on above: Performed By: #### U MICRO, ERUR #### [facility] [address] [place] [address] Dr. Alfredo Lizama CBC AUTO DIFFon 05-07-2022 BASO # 0.1 103/ul Normal 0.0-0.1 [facility] Comment on above: Performed By: #### U MICRO, ERUR #### [facility] [address] [place] [address] Dr. Alfredo Lizama Basophils/100 WBC (Bld) 0.5 % Normal 0.2-2.0 [facility] Comment on above: Performed By: #### U MICRO, ERUR #### [facility] [address] [place] [address] Dr. Alfredo Lizama EO # 0.4 103/ul Normal 0.0-0.7 [facility] Comment on above: Performed By: #### U MICRO, ERUR #### [facility] [address] [place] [address] Dr. Alfredo Lizama Eosinophils/100 WBC (Bld) 3.5 % Normal 0.9-7.0 [facility] Comment on above: Performed By: #### U MICRO, ERUR #### [facility] [address] [place] [address] Dr. Alfredo Lizama Erythrocyte distribution width (RBC) [Ratio] 13.2 % Normal 11.0-15.0 [facility] Comment on above: Performed By: #### U MICRO, ERUR #### [facility] [address] [place] [address] Dr. Alfredo Lizama Hematocrit (Bld) [Volume fraction] 44.0 % Normal 36.0-48.0 [facility] Comment on above: Performed By: #### U MICRO, ERUR #### [facility] [address] [address] [address] Alfredo Lizama Hemoglobin (Bld) [Mass/Vol] 14.8 g/dL Normal 12.0-16.0 [facility] Comment on above: Performed By: #### U MICRO, ERUR #### [facility] [address] [place] [address] Dr. Alfredo Lizama IG # 0.03 10e3/ul Normal 0.00-0.03 [facility] Comment on above: Performed By: #### U MICRO, ERUR #### [facility] [address] [place] [address] Dr. Alfredo Lizama IG % 0.2 % Normal 0.0-0.5 [facility] Comment on above: Performed By: #### U MICRO, ERUR #### [facility] [address] [place] [address] Dr. Alfredo Lizmaa LYMPH # 3.8 103/ul Normal 1.2-3.8 [facility] Comment on above: Performed By: #### U MICRO, ERUR #### [facility] [address] [place] [address] Dr. Alfredo Lizama Lymphocytes/100 WBC (Bld) 31.3 % Normal 20.5-60.0 [facility] Comment on above: Performed By: #### U MICRO, ERUR #### [facility] [address] [place] [address] Dr. Alfredo Lizama MANUAL DIFF REQ NO Normal [facility] Comment on above: Performed By: #### U MICRO, ERUR #### [facility] [address] [place] [address] Dr. Alfredo Lizama MCH (RBC) [Entitic mass] 28.8 pg Normal 26.7-34.0 [facility] Comment on above: Performed By: #### U MICRO, ERUR #### [facility] [address] [place] [address] Dr. Alfredo Lizama MCHC (RBC) [Mass/Vol] 33.6 g/dL Normal 29.9-35.2 [facility] Comment on above: Performed By: #### U MICRO, ERUR #### [facility] [address] [place] [address] Dr. Alfredo Lizama MCV (RBC) [Entitic vol] 85.8 fL Normal 81.0-99.0 [facility] Comment on above: Performed By: #### U MICRO, ERUR #### [facility] [address] [place] [address] Dr. Alfredo Lizama MONO # 0.7 103/ul Normal 0.3-0.8 [facility] Comment on above: Performed By: #### U MICRO, ERUR #### [facility] [address] [place] [address] Dr. Alfredo Lizama Monocytes/100 WBC (Bld) 5.8 % Normal 1.7-12.0 [facility] Comment on above: Performed By: #### U MICRO, ERUR #### [facility] [address] [place] [address] Dr. Alfredo Lizama NEUT # 7.1 103/ul Critically high 1.4-6.5 [facility] Comment on above: Performed By: #### U MICRO, ERUR #### [facility] [address] [place] [address] Dr. Alfredo Lizama Neutrophils/100 WBC (Bld) 58.7 % Normal 43.0-75.0 [facility] Comment on above: Performed By: #### U MICRO, ERUR #### [facility] [address] [place] [address] Dr. Alfredo Lizama Platelet mean volume (Bld) [Entitic vol] 9.6 fL Normal 9.5-13.5 [facility] Comment on above: Performed By: #### U MICRO, ERUR #### [facility] [address] [place] [address] Dr. Alfredo Lizama PLT 269 103/ul Normal 150-450 [facility] Comment on above: Performed By: #### U MICRO, ERUR #### [facility] [address] [place] [address] Dr. Alfredo Lizama RBC 5.13 106/ul Normal 4.20-5.40 [facility] Comment on above: Performed By: #### U MICRO, ERUR #### [facility] [address] [place], [place] [address] Dr. Alfredo Lizama WBC 12.2 103/ul Critically high 4.0-11.0 [facility] Comment on above: Performed By: #### U MICRO, ERUR #### [facility] [address] [place], [place] [address] ABD/PELV W CONon [...] KORIN STANLEY Date: 2022-05-07 14:00 Normal [facility] URINE PROFILEon 2 Bilirubin Ql (U) Negative Normal NEGATIVE [facility] Comment on above: Performed By: #### U MICRO, ERUR #### [facility] [address] [place] [address] Dr. Alfredo Lizama Clarity (U) CLOUDY Abnormal CLEAR [facility] Comment on above: Performed By: #### U MICRO, ERUR #### [facility] [address] [place] [address] Dr. Alfredo Lizama Color (U) LT. YELLOW Normal YELLOW [facility] Comment on above: Performed By: #### U MICRO, ERUR #### [facility] [address] [place] [address] Dr. Alfredo Lizama ERUBYROND A micrscopic examina tion will be performed if indicated. Normal [facility] Comment on above: Performed By: #### U MICRO, ERUR #### [facility] [address] [place] [address] Dr. Alfredo Lizama Glucose Ql (U) Negative Normal NEGATIVE [facility] Comment on above: Performed By: #### U MICRO, ERUR #### [facility] [address] [place] [address] Dr. Alfredo Lizama Hemoglobin Ql (U) LARGE Abnormal NEGATIVE [facility] Comment on above: Performed By: #### U MICRO, ERUR #### [facility] [address] [place] [address] Dr. Alfredo Lizama Ketones Ql (U) Negative Normal NEGATIVE [facility] Comment on above: Performed By: #### U MICRO, ERUR #### [facility] [address] [place] [address] Dr. Alfredo Lizama LEUKOCYTES MODERATE Abnormal NEGATIVE [facility] Comment on above: Performed By: #### U MICRO, ERUR #### [facility] [address] [address] [address] Alfredo Lizama Nitrite Ql (U) Positive Abnormal NEGATIVE [facility] Comment on above: Performed By: #### U MICRO, ERUR #### [facility] [address] [place] [address] Dr. Alfredo Lizama pH (U) 8.5 [pH] Normal 5-9 [facility] Comment on above: Performed By: #### U MICRO, ERUR #### [facility] [address] [place] [address] Dr. Alfredo Lizama Protein (U) [Mass/Vol] 100 mg/dL Abnormal NEGAT LATISHA/ TRACE [facility] Comment on above: Performed By: #### U MICRO, ERUR #### [facility] [address] [place] [address] Dr. Alfredo Lizama SPEC GRAVITY 1.015 Normal 1.005-<=1. 025 [facility] Comment on above: Performed By: #### U MICRO, ERUR #### [facility] [address] [place] [address] Dr. Alfredo Lizama UR MICRO IND INDICATED Normal [facility] Comment on above: Performed By: #### U MICRO, ERUR #### [facility] [address] [place] [address] Dr. Alfredo Lizama Urobilinogen Qn (U) 1.0 {Tesha'U}/dL Normal 0.2 - 1. 0 [facility] Comment on above: Performed By: #### U MICRO, ERUR #### [facility] [facility] [address] [place] [address] Dr. Alfredo Lizama PROF CHEM 8 (BAS METB)on Anion gap [Moles/Vol] 12.0 mmol/L Normal Th e [facility] Comment on above: Performed By: #### U MICRO, ERUR #### [facility] [address] [address] [address] Alfredo Lizama Calcium [Mass/Vol] 8.6 mg/dL Normal 8.5-10.1 [facility] Comment on above: Performed By: #### U MICRO, ERUR #### [facility] [address] [place] [address] Dr. Alfredo Lizama Chloride [Moles/Vol] 101 mmol/L Normal 98-107 [facility] Comment on above: Performed By: #### U MICRO, ERUR #### [facility] [address] [place] [address] Dr. Alfredo Lizama CO2 [Moles/Vol] 28.0 mmol/L Normal 21.0-32.0 [facility] Comment on above: Performed By: #### U MICRO, ERUR #### [facility] [address] [place] [address] Dr. Alfredo Lizama Creatinine [Mass/Vol] 0.77 mg/dL Normal 0.55-1.02 [facility] Comment on above: Performed By: #### U MICRO, ERUR #### [facility] [address] [place] [address] Dr. Alfredo Lizama EGFR-AF MONTSERRATIAN >60 Normal >=60 [facility] Comment on above: Performed By: #### U MICRO, ERUR #### [facility] [address] [place] [address] Dr. Alfredo Lizama EGFR-NON AF MONTSERRATIAN >60 Normal >=60 [facility] Comment on above: Performed By: #### U MICRO, ERUR #### [facility] [address] [place] [address] Dr. Alfredo Lizama Glucose [Mass/Vol] 96 mg/dL Normal 74-106 [facility] Comment on above: Performed By: #### U MICRO, ERUR #### [facility] [address] [place] [address] Dr. Alfredo Lizama Potassium [Moles/Vol] 4.0 mmol/L Normal 3.5-5.1 [facility] Comment on above: Performed By: #### U MICRO, ERUR #### [facility] [address] [address] [address] Alfredo Lizama Sodium [Moles/Vol] 137 mmol/L Normal 136-145 [facility] Comment on above: Performed By: #### U MICRO, ERUR #### [facility] [address] [place] [address] Dr. Alfredo Lizama Urea nitrogen [Mass/Vol] 7.0 mg/dL Normal 7.0-18.0 [facility] Comment on above: Performed By: #### U MICRO, ERUR #### [facility] [address] [place] [address] Dr. Alfredo Lizama Urea nitrogen/Creatinine [Mass ratio] 9.1 mg/mg Normal [facility] Comment on above: Performed By: #### U MICRO, ERUR #### [facility] [address] [place] [address] Dr. Alfredo Lizama URINE MICROSCOPIC ONLYon BACTERIA MODERATE Abnormal NONE SEEN The [facility] Comment on above: Performed By: #### U MICRO, ERUR #### [facility] [address] [place] [address] Dr. Alfredo Lizama Bacteria identified Cx Nom (U) INDICATED Normal [facility] Comment on above: Performed By: #### U MICRO, ERUR #### [facility] [address] [place] [address] Dr. Alfredo Lizama CAST NONE SEEN Normal NONE SEEN The [facility] Comment on above: Performed By: #### U MICRO, ERUR #### [facility] [address] [place] [address] Dr. Alfredo Lizama Crystals LM Nom (Urine sed) NONE SEEN Normal NONE SEEN The [facility] Comment on above: Performed By: #### U MICRO, ERUR #### [facility] [address] [place] [address] Dr. Alfredo Lizama Epithelial cells LM Ql (Urine sed) FEW Abnormal NONE SEEN /RARE The [facility] Comment on above: Performed By: #### U MICRO, ERUR #### [facility] [address] [address] [address] Alfredo Lizama MUCOUS NONE SEEN Normal NONE SEEN The [facility] Comment on above: Performed By: #### U MICRO, ERUR #### [facility] [address] [place] [address] Dr. Alfredo Lizama RBC 2-5 Abnormal 0-2 [facility] Comment on above: Performed By: #### U MICRO, ERUR #### [facility] [address] [address] [address] Alfredo Lizama WBC 10-20 Abnormal NONE SEEN The [facility] Comment on above: Performed By: #### U MICRO, ERUR #### [facility] [address] [place] [address] Dr. Alfredo Lizama CULTURE URINEon 04-10-2022 CULTURE [...] Trimethoprim/Sulfamethoxa zole <=20 S F Normal [facility] Comment on above: Performed By: #### U MICRO, ERUR #### [facility] [address] [address] [address] Alfredo SANDY URINE PROFILEon 2 Bilirubin Ql (U) Negative Normal NEGATIVE [facility] Comment on above: Performed By: #### U MICRO, ERUR #### [facility] [address] [address] [address] Alfredo Lizama Clarity (U) CLOUDY Abnormal CLEAR [facility] Comment on above: Performed By: #### U MICRO, ERUR #### [facility] [address] [address] [address] Alfredo Lizama Color (U) YELLOW Normal YELLOW [facility] Comment on above: Performed By: #### U MICRO, ERUR #### [facility] [address] [place] [address] Dr. Alfredo Lizama ERUAHD A micrscopic examina tion will be performed if indicated. Normal [facility] Comment on above: Performed By: #### U MICRO, ERUR #### [facility] [address] [address] [address] lAfredo Lizama Glucose Ql (U) Negative Normal NEGATIVE [facility] Comment on above: Performed By: #### U MICRO, ERUR #### [facility] [address] [place] [address] Dr. Alfredo Lizama Hemoglobin Ql (U) SMALL Abnormal NEGATIVE [facility] Comment on above: Performed By: #### U MICRO, ERUR #### [facility] [address] [address] [address] Alfredo Lizama Ketones Ql (U) Negative Normal NEGATIVE [facility] Comment on above: Performed By: #### U MICRO, ERUR #### [facility] [address] [address] [address] Alfredo Lizama LEUKOCYTES LARGE Abnormal NEGATIVE [facility] Comment on above: Performed By: #### U MICRO, ERUR #### [facility] [address] [address] [address] Alfredo Lizama Nitrite Ql (U) Negative Normal NEGATIVE [facility] Comment on above: Performed By: #### U MICRO, ERUR #### [facility] [address] [place] [address] Dr. Alfredo Lizama pH (U) 7.0 [pH] Normal 5-9 [facility] Comment on above: Performed By: #### U MICRO, ERUR #### [facility] [address] [place] [address] Dr. Alfredo Lizama SPEC GRAVITY <=1.005 Abnormal 1.005-<=1. 025 [facility] Comment on above: Performed By: #### U MICRO, ERUR #### [facility] [address] [place] [address] Dr. Alfredo Lizama UA PROTEIN Negative Normal NEGATIVE/ TRACE [facility] Comment on above: Performed By: #### U MICRO, ERUR #### [facility] [address] [place] [address] Dr. Alfredo Lizama UR MICRO IND INDICATED Normal [facility] Comment on above: Performed By: #### U MICRO, ERUR #### [facility] [address] [place] [address] Dr. Alfredo Lizama Urobilinogen Qn (U) 0.2 {Tesha'U}/dL Normal 0.2 - 1. 0 [facility] Comment on above: Performed By: #### U MICRO, ERUR #### [facility] [address] [place] [address] Dr. Alfredo Lizama URINE MICROSCOPIC ONLYon BACTERIA MODERATE Abnormal NONE SEEN The [facility] Comment on above: Performed By: #### U MICRO, ERUR #### [facility] [address] [place] [address] Dr. Alfredo Lizama Bacteria identified Cx Nom (U) INDICATED Normal [facility] Comment on above: Performed By: #### U MICRO, ERUR #### [facility] [address] [place] [address] Dr. Alfredo Lizama CAST NONE SEEN Normal NONE SEEN The [facility] Comment on above: Performed By: #### U MICRO, ERUR #### [facility] [address] [address] [address] Alfredo Lizama Crystals LM Nom (Urine sed) NONE SEEN Normal NONE SEEN [facility] Comment on above: Performed By: #### U MICRO, ERUR #### [facility] [address] [address] [address] Alfredo Lizama Epithelial cells LM Ql (Urine sed) FEW Abnormal NONE SEEN /RARE [facility] Comment on above: Performed By: #### U MICRO, ERUR #### [facility] [address] [address] [address] Alfredo Lizama MUCOUS NONE SEEN Normal NONE SEEN The [facility] Comment on above: Performed By: #### U MICRO, ERUR #### [facility] [address] [address] [address] Alfredo Lizama RBC 5-10 Abnormal 0-2 [facility] Comment on above: Performed By: #### U MICRO, ERUR #### [facility] [address] [address] [address] Alfredo Lizama WBC (U) [#/Vol] /uL Abnormal NONE SEEN The [facility] Comment on above: Performed By: #### U MICRO, ERUR #### [facility] [address] [address] [address] Alfredo Lizama Basic Metabolic Panelon 11-03 Calcium [Mass/Vol] 8.9 mg/dL Normal 8.2-10.2 [facility] Comment on above: Performed By: #### C BC, CMP, PAB #### [facility] [address] [place] [address] [place] Chloride [Moles/Vol] 101 mmol/L Normal 95-114 [facility] Comment on above: Performed By: #### C BC, CMP, PAB #### [facility] [address] [place] [address] [place] CO2 [Moles/Vol] 29.0 mmol/L Normal 22.0-30.0 [place] Comment on above: Performed By: #### C BC, CMP, PAB #### [facility] [address] Creatinine [Mass/Vol] 0.48 mg/dL Normal 0.44-1.03 [facility] Comment on above: Performed By: #### C DARIUS PATEL, PAB #### [address] Creatinine Clr Calc Pharmacy 150.29 [facility] Comment on above: Result Comment: PERF ORMED BY: [place] [address] PATHOLOGIST MANAGER [employer] HUY COX M.D. Performed By: #### C DARIUS PATEL, PAB #### [facility] [address] Estimated GFR ( July > 60 [facility] Comment on above: Result Comment: GFR estimated reference range: According to KDOQI guidelines, <60 ml/min/1.73m2 is sufficient to diagnose a patient with chronic kidney disease. Performed By: #### C DARIUS PATEL, PAB #### [address] Estimated GFR (Non- Am > 60 [facility] Comment on above: Performed By: #### C DARIUS PATEL, PAB #### [address] Glucose [Mass/Vol] 111 mg/dL High 70-100 [facility] Comment on above: Result Comment: [place] Glucose Reference Range is dependent on time and content of last meal. Glucose of more than 200 mg/dL in a nonstressed, ambulatory subject supports the diagnosis of Diabetes Mellitus. ADA recommended reference range Performed By: #### C DARIUS PATEL, PAB #### [facility] [address] Potassium [Moles/Vol] 3.6 mmol/L Normal 3.5-5.1 [facility] Comment on above: Performed By: #### C DARIUS PATEL, PAB #### [facility] [address] Sodium [Moles/Vol] 138 mmol/L Normal 136-146 [facility] Comment on above: Performed By: #### C BC, CMP, PAB #### [facility] [address] Urea nitrogen [Mass/Vol] 10 mg/dL Normal 9- [facility] Comment on above: Performed By: #### C BC, CMP, PAB #### [facility] [address] Complete Blood Count Auto Di ffon 11-19-2021 Basophils (Bld) [#/Vol] 0.1 10*3/uL Normal 0.0-0.2 [facility] Comment on above: Result Comment: PERF ORMED BY: [place] [address] PATHOLOGIST MA[employer] HUY COX M.D. Performed By: #### C BC, CMP, PAB #### [address] Basophils/100 WBC (Bld) 0.8 % Normal . [facility] Comment on above: Performed By: #### C BC, CMP, PAB #### [facility] [address] [place] [address] [place] Eosinophils (Bld) [#/Vol] 0.4 10*3/uL Normal 0.0-0.45 [facility] Comment on above: Performed By: #### C BC, CMP, PAB #### [place] [address] [place] Eosinophils/100 WBC (Bld) 5.8 % Normal . [facility] Comment on above: Performed By: #### C BC, CMP, PAB #### [facility] [address] Erythrocyte distribution width (RBC) [Ratio] 14.3 % Normal 11.9-15.3 [facility] Comment on above: Performed By: #### C BC, CMP, PAB #### [facility] [address] Hematocrit (Bld) [Volume fraction] 36.0 % Normal 34.0-46.4 [facility] Comment on above: Performed By: #### C BC, CMP, PAB #### [facility] [address] [place] [address] [place] Hemoglobin (Bld) [Mass/Vol] 11.9 g/dL Normal 11.8-15.4 [facility] Comment on above: Performed By: #### C BC, CMP, PAB #### [facility] [address] Lymphocytes (Bld) [#/Vol] 2.7 10*3/uL Normal 1.00-4.8 [facility] Comment on above: Performed By: #### C BC, CMP, PAB #### [facility] [address] Lymphocytes/100 WBC (Bld) 37.6 % Normal . [facility] Comment on above: Performed By: #### C BC, CMP, PAB #### [facility] [address] MCH (RBC) [Entitic mass] 28.1 pg Normal 24.7-34.3 [facility] Comment on above: Performed By: #### C BC, CMP, PAB #### [facility] [address] [place] [address] [place] MCV (RBC) [Entitic vol] 85.3 fL Normal 80-100 [facility] Comment on above: Performed By: #### C BC, CMP, PAB #### [facility] [address] Mean Corpuscular HGB Conc 32.9 g/dL Normal 32.0-35.0 [facility] Comment on above: Performed By: #### C BC, CMP, PAB #### [facility] [address] [place] [address] [place] Monocytes (Bld) [#/Vol] 0.4 10*3/uL Normal 0.0-0.8 [facility] Comment on above: Performed By: #### C BC, CMP, PAB #### [facility] [address] [place] [address] [place] Monocytes/100 WBC (Bld) 5.2 % Normal . [facility] Comment on above: Performed By: #### C BC, CMP, PAB #### [facility] [address] [place] [address] [place] Neutrophils (Bld) [#/Vol] 3.7 10*3/uL Normal 1.8-7.7 [facility] Comment on above: Performed By: #### C BC, CMP, PAB #### [facility] [address] Neutrophils/100 WBC (Bld) 50.6 % Normal . [facility] Comment on above: Performed By: #### C BC, CMP, PAB #### [facility] [address] Nucleated RBC/100 WBC (Bld) [Ratio] 0.0 % Normal 0-0.5 [facility] Comment on above: Performed By: #### C BC, CMP, PAB #### [facility] [address] Platelet mean volume (Bld) [Entitic vol] 7.6 fL Normal 6.3-10.7 [facility] Comment on above: Performed By: #### C BC, CMP, PAB #### [facility] [address] Platelets (Bld) [#/Vol] 252 10*3/uL Normal 150-450 [facility] Comment on above: Performed By: #### C BC, CMP, PAB #### [facility] [address] [place] [address] [place] RBC (Bld) [#/Vol] 4.22 10*6/uL Normal 3.60-5.00 [facility] Comment on above: Performed By: #### C BC, CMP, PAB #### [facility] [address] [place] [address] [place] WBC (Bld) [#/Vol] 7.2 10*3/uL Normal 4.5-11.0 [facility] Comment on above: Performed By: #### C BC, CMP, PAB #### [facility] [address] [place] [address] [place] Ammoniaon 11-11-2021 Ammonia (P) [Moles/Vol] 26 umol/L Normal 11-35 [facility] Comment on above: Result Comment: PERF ORMED BY: [place] [address] PATHOLOGIST MA[employer]GER [employer] HUY COX M.D. Performed By: #### C BC, CMP, PAB #### [address] Hepatic Panelon 11-11-2021 Albumin [Mass/Vol] 3.0 g/dL Low 3.2-5.5 [facility] Comment on above: Performed By: #### C BC, CMP, PAB #### [address] Albumin/Globulin [Mass ratio] 1.0 {ratio} Normal [facility] Comment on above: Performed By: #### C BC, CMP, PAB #### [address] ALP [Catalytic activity/Vol] 187 U/L High 32-92 [facility] Comment on above: Result Comment: PERF ORMED BY: [place] [address] PATHOLOGIST MA[employer] HUY COX M.D. Performed By: #### C BC, CMP, PAB #### [address] ALT [Catalytic activity/Vol] 54 U/L Normal 10-60 [facility] Comment on above: Performed By: #### C BC, CMP, PAB #### [address] AST [Catalytic activity/Vol] 39 U/L Normal 10-42 [facility] Comment on above: Performed By: #### C BC, CMP, PAB #### [address] Bilirubin [Mass/Vol] 0.3 mg/dL Normal 0.3-1.2 [facility] Comment on above: Performed By: #### C BC, CMP, PAB #### [facility] [address] [place] [address] Bilirubin,Indirect Not performed Normal [facility] Comment on above: Performed By: #### C BC, CMP, PAB #### [facility] [address] Bilirubin.indirect [Mass/Vol] mg/dL Normal 0.0-0.4 [facility] Comment on above: Performed By: #### C BC, CMP, PAB #### [facility] [address] [place] [address] Globulin (S) [Mass/Vol] 3.0 g/dL Normal F [facility] Comment on above: Performed By: #### C BC, CMP, PAB #### [address] Protein [Mass/Vol] 6.0 g/dL Low 6.1-7.9 [facility] Comment on above: Performed By: #### C BC, CMP, PAB #### [address] Hepatitis Acute Panelon 03-0 HBsAg Screen Negative Normal Negative [facility] Comment on above: Performed By: #### C BC, CMP, PAB #### [address] Hepatitis A Antibody IgM Negative Normal Negative [facility] Comment on above: Performed By: #### C BC, CMP, PAB #### [facility] [address] [place] [address] Hepatitis B Core Antibody IgM Negative Normal Negative [facility] Comment on above: Performed By: #### C BC, CMP, PAB #### [facility] [address] [place] [address] Hepatitis C Virus Antibody 0.2 Normal 0.0-0.9 [facility] Comment on above: Performed By: #### C BC, CMP, PAB #### [facility] [address] [place] [address] Interpretation Hepatitis C Normal . [facility] Comment on above: Result Comment: Dov chun Not infected with HCV, unless recent infection is suspected or other evidence exists to indicate HCV infection. Performed at: - [facility] [address] [id number] Strap Maker: Pedro Luis José PhD, Phone: [phone] PERFORMED BY: [place] [address] PATHOLOGIST MA[employer]GER [employer] HUY COX M.D. Performed By: #### C BC, CMP, PAB #### [address] US liveron 11-11-2021 liver [facility] Main [place] [address] [place] [address] Ultrasound Report Signed Patient: Morales Lee MR#: [id number] : 1975 Acct:[id number] Age/Sex: 46 / F ADM Date: 10/29/21 Loc: Room: [address] [place] [address] Type: ADM IN Attending Dr: Richard Acevedo [...] Alexandru Pond M.D.11/11/2021 10:23 AM Dictation Location: [place] [address] Tech: Ermelinda Diaz Transcribed By: CORTNEY 11/11/21 1023 Dictated By: Alexandru Pond DO 11/11/21 1018 Signed By: 11/11/21 1023 Normal [facility] Complete Blood Count Auto Di ffon 11-10-2021 Basophils (Bld) [#/Vol] 0.1 10*3/uL Normal 0.0-0.2 [facility] Comment on above: Result Comment: PERF ORMED BY: [place] [address] PATHOLOGIST MANAGER [employer] HUY COX M.D. Performed By: #### C BC #### [address] Basophils/100 WBC (Bld) 1.2 % Normal . [facility] Comment on above: Performed By: #### C BC #### [address] Eosinophils (Bld) [#/Vol] 0.3 10*3/uL Normal 0.0-0.45 [facility] Comment on above: Performed By: #### C BC #### [address] Eosinophils/100 WBC (Bld) 5.9 % Normal . [facility] Comment on above: Performed By: #### C BC #### [address] Erythrocyte distribution width (RBC) [Ratio] 14.2 % Normal 11.9-15.3 [facility] Comment on above: Performed By: #### C BC #### [address] Hematocrit (Bld) [Volume fraction] 37.1 % Normal 34.0-46.4 [facility] Comment on above: Performed By: #### C BC #### [address] Hemoglobin (Bld) [Mass/Vol] 12.3 g/dL Normal 11.8-15.4 [facility] Comment on above: Performed By: #### C BC #### [address] Lymphocytes (Bld) [#/Vol] 2.0 10*3/uL Normal 1.00-4.8 [facility] Comment on above: Performed By: #### C BC #### [address] Lymphocytes/100 WBC (Bld) 36.5 % Normal . [facility] Comment on above: Performed By: #### C BC #### [address] MCH (RBC) [Entitic mass] 28.6 pg Normal 24.7-34.3 [facility] Comment on above: Performed By: #### C BC #### [address] MCV (RBC) [Entitic vol] 86.5 fL Normal 80-100 [facility] Comment on above: Performed By: #### C BC #### [address] Mean Corpuscular HGB Conc 33.1 g/dL Normal 32.0-35.0 [facility] Comment on above: Performed By: #### C BC #### [address] Monocytes (Bld) [#/Vol] 0.3 10*3/uL Normal 0.0-0.8 [facility] Comment on above: Performed By: #### C BC #### [address] Monocytes/100 WBC (Bld) 5.3 % Normal . [facility] Comment on above: Performed By: #### C BC #### [place] [address] [place] Neutrophils (Bld) [#/Vol] 2.8 10*3/uL Normal 1.8-7.7 [facility] Comment on above: Performed By: #### C BC #### [place] [address] [place] Neutrophils/100 WBC (Bld) 51.1 % Normal . [facility] Comment on above: Performed By: #### C BC #### [address] Nucleated RBC/100 WBC (Bld) [Ratio] 0.1 % Normal 0-0.5 [facility] Comment on above: Performed By: #### C BC #### [address] Platelet mean volume (Bld) [Entitic vol] 7.8 fL Normal 6.3-10.7 [facility] Comment on above: Performed By: #### C BC #### [address] Platelets (Bld) [#/Vol] 214 10*3/uL Normal 150-450 [facility] Comment on above: Performed By: #### C BC #### [address] RBC (Bld) [#/Vol] 4.28 10*6/uL Normal 3.60-5.00 [facility] Comment on above: Performed By: #### C BC #### [address] WBC (Bld) [#/Vol] 5.4 10*3/uL Normal 4.5-11.0 [facility] Comment on above: Performed By: #### C BC #### [address] Comprehensive Metabolic Pane shree 11-10-2021 Albumin [Mass/Vol] 2.9 g/dL Low 3.2-5.5 [facility] Comment on above: Performed By: #### C BC, CMP, PAB #### [address] Albumin/Globulin [Mass ratio] 0.9 {ratio} Normal [facility] Comment on above: Performed By: #### C BC, CMP, PAB #### [address] ALP [Catalytic activity/Vol] 201 U/L High 32-92 [facility] Comment on above: Performed By: #### C BC CMP, PAB #### [facility] [address] ALT [Catalytic activity/Vol] 67 U/L High 10-60 [facility] Comment on above: Performed By: #### C BC, CMP, PAB #### [facility] [address] AST [Catalytic activity/Vol] 66 U/L High 10-42 [facility] Comment on above: Performed By: #### C BC, CMP, PAB #### [facility] [address] Bilirubin [Mass/Vol] 0.4 mg/dL Normal 0.3-1.2 [facility] Comment on above: Performed By: #### C BC, CMP, PAB #### [facility] [address] Calcium [Mass/Vol] 8.7 mg/dL Normal 8.2-10.2 [facility] Comment on above: Performed By: #### C BC CMP, PAB #### [facility] [address] Chloride [Moles/Vol] 100 mmol/L Normal 95-114 [facility] Comment on above: Performed By: #### C BC, CMP, PAB #### [facility] [address] CO2 [Moles/Vol] 26.4 mmol/L Normal 22.0-30.0 [place] Comment on above: Performed By: #### C BC, CMP, PAB #### [facility] [address] [place] [address] [place] Creatinine [Mass/Vol] 0.50 mg/dL Normal 0.44-1.03 [facility] Comment on above: Performed By: #### C BC, CMP, PAB #### [facility] [address] [place] [address] [place] Creatinine Clr Calc Pharmacy 142.11 Normal [facility] Comment on above: Result Comment: PERF ORMED BY: [place] [address] PATHOLOGIST MANAGER [employer] HUY COX M.D. Performed By: #### C BC, CMP, PAB #### [address] Estimated GFR ( July > 60 [facility] Comment on above: Result Comment: GFR estimated reference range: According to KDOQI guidelines, <60 ml/min/1.73m2 is sufficient to diagnose a patient with chronic kidney disease. Performed By: #### C BC, CMP, PAB #### [address] Estimated GFR (Non- Am > 60 [facility] Comment on above: Performed By: #### C BC, CMP, PAB #### [address] Globulin (S) [Mass/Vol] 3.1 g/dL Normal [facility] Comment on above: Performed By: #### C BC, CMP, PAB #### [address] Glucose [Mass/Vol] 110 mg/dL High 70-100 [facility] Comment on above: Result Comment: [facility] Glucose Reference Range is dependent on time and content of last meal. Glucose of more than 200 mg/dL in a nonstressed, ambulatory subject supports the diagnosis of Diabetes Mellitus. ADA recommended reference range Performed By: #### C BC, CMP, PAB #### [address] Potassium [Moles/Vol] 4.0 mmol/L Normal 3.5-5.1 [facility] Comment on above: Performed By: #### C BC, CMP, PAB #### [address] Protein [Mass/Vol] 6.0 g/dL Low 6.1-7.9 [facility] Comment on above: Performed By: #### C BC, CMP, PAB #### [facility] [address] [place] [id number] [place] Sodium [Moles/Vol] 136 mmol/L Normal 136-146 [facility] Comment on above: Performed By: #### C BC, CMP, PAB #### [facility] [address] [place] [id number] [place] Urea nitrogen [Mass/Vol] 8 mg/dL Low 9-23 [facility] Comment on above: Performed By: #### C BC, CMP, PAB #### [facility] [address] [place] [address] [place] Dipstick and Microscopicon 0 11-10-2021 Appearance (U) Turbid Critically abnormal Clear [facility] Comment on above: Order Comment: Name Collection Type:: Alvares Catheter Performed By: #### C BC, CMP, PAB #### [facility] [address] [place] [address] [place] Bacteria,Urine 3+ High None Seen [facility] Comment on above: Order Comment: Name Collection Type:: Alvares Catheter Performed By: #### C BC, CMP, PAB #### [facility] [address] [place] [address] [place] Bilirubin,Urine Negative Normal Negative [facility] Comment on above: Order Comment: Name Collection Type:: Alvares Catheter Performed By: #### C BC, CMP, PAB #### [facility] [address] [place] [id number] [place] Color (U) Yellow Normal Yellow [facility] Comment on above: Order Comment: Name Collection Type:: Alvares Catheter Performed By: #### C BC, CMP, PAB #### [facility] [address] [place] [id number] [place] Glucose Ql (U) Normal Normal Normal [facility] Comment on above: Order Comment: Name Collection Type:: Alvares Catheter Performed By: #### C BC, CMP, PAB #### [facility] [address] [place] [id number] [place] Hyaline Casts,Urine None Seen Normal 0-1 [facility] Comment on above: Order Comment: Name Collection Type:: Alvares Catheter Performed By: #### C BC, CMP, PAB #### [facility] [address] [place] [address] [place] Ketones Ql (U) Negative Normal Negative [facility] Comment on above: Order Comment: Name Collection Type:: Alvares Catheter Performed By: #### C BC, CMP, PAB #### [facility] [address] [place] [address] Leukocyte esterase Test strip Ql (U) 3+ High Negative [facility] Comment on above: Order Comment: Name Collection Type:: Alvares Catheter Performed By: #### C BC, CMP, PAB #### [address] Nitrite,Urine Positive High Negative [facility] Comment on above: Order Comment: Name Collection Type:: Alvares Catheter Performed By: #### C BC, CMP, PAB #### [address] Occult Blood,Urine 2+ High Negative [facility] Comment on above: Order Comment: Name Collection Type:: Alvares Catheter Result Comment: PERF ORMED BY: [place] [address] PATHOLOGIST MANAGER [employer] HUY COX M.D. Performed By: #### C BC, CMP, PAB #### [address] Other Casts,Urine None Seen Normal None Seen [facility] Comment on above: Order Comment: Name Collection Type:: Alvares Catheter Result Comment: PERF ORMED BY: [place] [address] PATHOLOGIST MANAGER [employer] HUY COX M.D. Performed By: #### C BC, CMP, PAB #### [facility] [address] [place] [address] [place] pH (U) 8.5 [pH] Normal 5.0-9.0 [facility] Comment on above: Order Comment: Name Collection Type:: Alvares Catheter Performed By: #### C BC, CMP, PAB #### [address] [address] [place] Protein,Urine Negative Normal Negative [facility] Comment on above: Order Comment: Name Collection Type:: Alvares Catheter Performed By: #### C BC, CMP, PAB #### [facility] [address] [place] [address] RBC,Urine 1-2 Normal 0-4 [facility] Comment on above: Order Comment: Name Collection Type:: Alvares Catheter Performed By: #### C BC, CMP, PAB #### [facility] [address] [place] [address] Specificy [place],Urine 1.006 Normal 1.00 1-1.03 0 [facility] Comment on above: Order Comment: Name Collection Type:: Alvares Catheter Performed By: #### C BC, CMP, PAB #### [facility] [address] [place] [address] Squamous Epithelial Cell,Urine 3-4 High 0-2 [facility] Comment on above: Order Comment: Name Collection Type:: Alvares Catheter Performed By: #### C BC, CMP, PAB #### [facility] [address] [place] [address] Triple Phosphate Crystal,Urine 2+ Normal [facility] Comment on above: Order Comment: Name Collection Type:: Alvares Catheter Performed By: #### C BC, CMP, PAB #### [facility] [address] [place] [address] Urobilinogen,Urine Normal Normal Normal [facility] Comment on above: Order Comment: Name Collection Type:: Alvares Catheter Performed By: #### C BC, CMP, PAB #### [facility] [address] [place] [address] [place] WBC,Urine 20-49 High 0-4 [facility] Comment on above: Order Comment: Name Collection Type:: Alvares Catheter Performed By: #### C BC, CMP, PAB #### [facility] [address] [place] [address] [place] Urine Cultureon 11-10-2021 Bacteria identified Cx Nom (U) ORGANISM: Providencia rettgeri (O:PRORET) Hodgen Count >100,000 Aerobic JOSE Charge (NUC86) SUSCEPTIBILITY [...] RESISTANT TO ALL B-LACTAM DRUGS. PERFORMED BY: [place] [address] PATHOLOGIST MANAGER [employer] HUY COX M.D. [facility] Comment on above: Performed By: #### C BC, CMP, PAB #### [address] Basic Metabolic Panelon 03-0 Calcium [Mass/Vol] 8.7 mg/dL Normal 8.2-10.2 [facility] Comment on above: Performed By: #### B MP, CBC #### [address] Chloride [Moles/Vol] 102 mmol/L Normal 95-114 [facility] Comment on above: Performed By: #### B MP, CBC #### [address] CO2 [Moles/Vol] 25.5 mmol/L Normal 22.0-30.0 [place] Comment on above: Performed By: #### B MP, CBC #### [address] Creatinine [Mass/Vol] 0.71 mg/dL Normal 0.44-1.03 [facility] Comment on above: Performed By: #### B MP, CBC #### [address] Creatinine Clr Calc Pharmacy 100.08 [facility] Comment on above: Result Comment: PERF ORMED BY: [place] [address] PATHOLOGIST MANAGER [employer] HUY COX M.D. Performed By: #### B MP, CBC #### [address] Estimated GFR ( July > 60 [facility] Comment on above: Result Comment: GFR estimated reference range: According to KDOQI guidelines, <60 ml/min/1.73m2 is sufficient to diagnose a patient with chronic kidney disease. Performed By: #### B MP, CBC #### [address] Estimated GFR (Non- Am > 60 [facility] Comment on above: Performed By: #### B MP, CBC #### [address] Glucose [Mass/Vol] 104 mg/dL High 70-100 [facility] Comment on above: Result Comment: [facility] Glucose Reference Range is dependent on time and content of last meal. Glucose of more than 200 mg/dL in a nonstressed, ambulatory subject supports the diagnosis of Diabetes Mellitus. ADA recommended reference range Performed By: #### B MP, CBC #### [address] Potassium [Moles/Vol] 4.1 mmol/L Normal 3.5-5.1 [facility] Comment on above: Performed By: #### B MP, CBC #### [facility] [address] Sodium [Moles/Vol] 137 mmol/L Normal 136-146 [facility] Comment on above: Performed By: #### B MP, CBC #### [facility] [address] Urea nitrogen [Mass/Vol] 10 mg/dL Normal 9-23 [facility] Comment on above: Performed By: #### B MP, CBC #### [address] Complete Blood Count Auto Di ffon 11-06-2021 Basophils (Bld) [#/Vol] 0.1 10*3/uL Normal 0.0-0.2 [facility] Comment on above: Result Comment: PERF ORMED BY: [place] [address] PATHOLOGIST MANAGER [employer] HUY COX M.D. Performed By: #### B MP, CBC #### [address] Basophils/100 WBC (Bld) 0.8 % Normal . [facility] Comment on above: Performed By: #### B MP, CBC #### [address] Eosinophils (Bld) [#/Vol] 0.4 10*3/uL Normal 0.0-0.45 [facility] Comment on above: Performed By: #### B MP, CBC #### [address] Eosinophils/100 WBC (Bld) 5.5 % Normal . [facility] Comment on above: Performed By: #### B MP, CBC #### [address] Erythrocyte distribution width (RBC) [Ratio] 14.2 % Normal 11.9-15.3 [facility] Comment on above: Performed By: #### B MP, CBC #### [address] Hematocrit (Bld) [Volume fraction] 36.0 % Normal 34.0-46.4 [facility] Comment on above: Performed By: #### B MP, CBC #### [address] Hemoglobin (Bld) [Mass/Vol] 12.0 g/dL Normal 11.8-15.4 [facility] Comment on above: Performed By: #### B MP, CBC #### [address] Lymphocytes (Bld) [#/Vol] 2.4 10*3/uL Normal 1.00-4.8 [facility] Comment on above: Performed By: #### B MP, CBC #### [address] Lymphocytes/100 WBC (Bld) 35.2 % Normal . [facility] Comment on above: Performed By: #### B MP, CBC #### [address] MCH (RBC) [Entitic mass] 28.9 pg Normal 24.7-34.3 [facility] Comment on above: Performed By: #### B MP, CBC #### [address] MCV (RBC) [Entitic vol] 86.4 fL Normal 80-100 F [facility] Comment on above: Performed By: #### B MP, CBC #### [address] Mean Corpuscular HGB Conc 33.4 g/dL Normal 32.0-35.0 [facility] Comment on above: Performed By: #### B MP, CBC #### [address] Monocytes (Bld) [#/Vol] 0.3 10*3/uL Normal 0.0-0.8 [facility] Comment on above: Performed By: #### B MP, CBC #### [place] [address] [place] Monocytes/100 WBC (Bld) 4.8 % Normal . F [facility] Comment on above: Performed By: #### B MP, CBC #### [facility] [address] [place] [address] [place] Neutrophils (Bld) [#/Vol] 3.7 10*3/uL Normal 1.8-7.7 [facility] Comment on above: Performed By: #### B MP, CBC #### [facility] [address] Neutrophils/100 WBC (Bld) 53.7 % Normal . [facility] Comment on above: Performed By: #### B MP, CBC #### [facility] [address] Nucleated RBC/100 WBC (Bld) [Ratio] 0.0 % Normal 0-0.5 [facility] Comment on above: Performed By: #### B MP, CBC #### [facility] [address] Platelet mean volume (Bld) [Entitic vol] 8.2 fL Normal 6.3-10.7 [facility] Comment on above: Performed By: #### B MP, CBC #### [facility] [address] [place] [address] [place] Platelets (Bld) [#/Vol] 235 10*3/uL Normal 150-450 [facility] Comment on above: Performed By: #### B MP, CBC #### [facility] [address] [place] [address] [place] RBC (Bld) [#/Vol] 4.17 10*6/uL Normal 3.60-5.00 [facility] Comment on above: Performed By: #### B MP, CBC #### [facility] [address] [place] [address] [place] WBC (Bld) [#/Vol] 6.9 10*3/uL Normal 4.5-11.0 [facility] Comment on above: Performed By: #### B MP, CBC #### [facility] [address] US venous duplex LE BIon US venous duplex LE BI [facility] Main [place] [address] [place] [address] Ultrasound Report Signed Patient: Morales Lee MR#: [id number] : 1975 Acct:[id number] Age/Sex: 46 / F ADM Date: 10/29/21 Loc: Room: [address] [place] [address] Type: ADM IN Attending Dr: Richard Acevedo [...] Carlos Neal MD11/04/2021 11:36 AM Dictation Location: [place] [address] Tech: Natalia Rivas Transcribed By: CORTNEY 11/04/21 1136 Dictated By: Juan Carlos Neal MD 11/04/21 1135 Signed By: 11/04/21 1136 Normal [facility] Complete Blood Count Auto Di ffon 10-30-2021 Basophils (Bld) [#/Vol] 0.0 10*3/uL Normal 0.0-0.2 [facility] Comment on above: Result Comment: PERF ORMED BY: [place] [address] PATHOLOGIST MANAGER [employer] HUY COX M.D. Performed By: #### C BC, CMP, PAB #### [address] Basophils/100 WBC (Bld) 0.6 % Normal . F [facility] Comment on above: Performed By: #### C BC, CMP, PAB #### [facility] [address] Eosinophils (Bld) [#/Vol] 0.4 10*3/uL Normal 0.0-0.45 [facility] Comment on above: Performed By: #### C BC, CMP, PAB #### [facility] [address] [place] [address] [place] Eosinophils/100 WBC (Bld) 4.9 % Normal . [facility] Comment on above: Performed By: #### C BC, CMP, PAB #### [facility] [address] Erythrocyte distribution width (RBC) [Ratio] 14.3 % Normal 11.9-15.3 [facility] Comment on above: Performed By: #### C BC, CMP, PAB #### [address] Hematocrit (Bld) [Volume fraction] 36.1 % Normal 34.0-46.4 [facility] Comment on above: Performed By: #### C BC, CMP, PAB #### [address] Hemoglobin (Bld) [Mass/Vol] 12.1 g/dL Normal 11.8-15.4 [facility] Comment on above: Performed By: #### C BC, CMP, PAB #### [place] [address] [place] Lymphocytes (Bld) [#/Vol] 2.8 10*3/uL Normal 1.00-4.8 [facility] Comment on above: Performed By: #### C BC, CMP, PAB #### [place] [address] [place] Lymphocytes/100 WBC (Bld) 39.0 % Normal . [facility] Comment on above: Performed By: #### C BC, CMP, PAB #### [address] MCH (RBC) [Entitic mass] 28.7 pg Normal 24.7-34.3 [facility] Comment on above: Performed By: #### C BC, CMP, PAB #### [facility] [address] MCV (RBC) [Entitic vol] 85.7 fL Normal 80-100 F [facility] Comment on above: Performed By: #### C BC, CMP, PAB #### [facility] [address] Mean Corpuscular HGB Conc 33.4 g/dL Normal 32.0-35.0 [facility] Comment on above: Performed By: #### C BC, CMP, PAB #### [address] Monocytes (Bld) [#/Vol] 0.4 10*3/uL Normal 0.0-0.8 [facility] Comment on above: Performed By: #### C BC, CMP, PAB #### [address] Monocytes/100 WBC (Bld) 5.2 % Normal . F [facility] Comment on above: Performed By: #### C BC, CMP, PAB #### [address] Neutrophils (Bld) [#/Vol] 3.6 10*3/uL Normal 1.8-7.7 [facility] Comment on above: Performed By: #### C BC, CMP, PAB #### [place] [address] [place] Neutrophils/100 WBC (Bld) 50.3 % Normal . [facility] Comment on above: Performed By: #### C BC, CMP, PAB #### [place] [address] [place] Nucleated RBC/100 WBC (Bld) [Ratio] 0.0 % Normal 0-0.5 [facility] Comment on above: Performed By: #### C BC, CMP, PAB #### [place] [address] [place] Platelet mean volume (Bld) [Entitic vol] 8.1 fL Normal 6.3-10.7 [facility] Comment on above: Performed By: #### C BC, CMP, PAB #### [facility] [address] Platelets (Bld) [#/Vol] 261 10*3/uL Normal 150-450 [facility] Comment on above: Performed By: #### C BC, CMP, PAB #### [address] RBC (Bld) [#/Vol] 4.22 10*6/uL Normal 3.60-5.00 [facility] Comment on above: Performed By: #### C BC, CMP, PAB #### [address] WBC (Bld) [#/Vol] 7.2 10*3/uL Normal 4.5-11.0 [facility] Comment on above: Performed By: #### C BC, CMP, PAB #### [address] Comprehensive Metabolic Pane shree 10-30-2021 Albumin [Mass/Vol] 2.8 g/dL Low 3.2-5.5 [facility] Comment on above: Performed By: #### C BC, CMP, PAB #### [address] Albumin/Globulin [Mass ratio] 1.0 {ratio} Normal [facility] Comment on above: Performed By: #### C BC, CMP, PAB #### [address] ALP [Catalytic activity/Vol] 116 U/L High 32-92 [facility] Comment on above: Performed By: #### C BC, CMP, PAB #### [address] ALT [Catalytic activity/Vol] 20 U/L Normal 10-60 [facility] Comment on above: Performed By: #### C BC, CMP, PAB #### [facility] [address] [place] [id number] [facility] AST [Catalytic activity/Vol] 22 U/L Normal 10-42 [facility] Comment on above: Performed By: #### C BC CMP, PAB #### [facility] [address] [place] [id number] [facility] Bilirubin [Mass/Vol] 0.5 mg/dL Normal 0.3-1.2 [facility] Comment on above: Performed By: #### C BC CMP, PAB #### [facility] [address] Calcium [Mass/Vol] 8.7 mg/dL Normal 8.2-10.2 [facility] Comment on above: Performed By: #### C JORGE CMP, PAB #### [facility] [address] Chloride [Moles/Vol] 105 mmol/L Normal 95-114 [facility] Comment on above: Performed By: #### C BC CMP, PAB #### [facility] [address] [place] [address] [place] CO2 [Moles/Vol] 26.8 mmol/L Normal 22.0-30.0 [place] Comment on above: Performed By: #### C JORGE CMP, PAB #### [facility] [address] [place] [id number] [place] Creatinine [Mass/Vol] 0.51 mg/dL Normal 0.44-1.03 [facility] Comment on above: Performed By: #### C BC CMP, PAB #### [facility] [address] [place] [id number] [place] Creatinine Clr Calc Pharmacy 123.73 [facility] Comment on above: Performed By: #### C BC CMP, PAB #### [facility] [address] [place] [address] [place] Estimated GFR ( July > 60 Normal [facility] Comment on above: Result Comment: GFR estimated reference range: According to KDOQI guidelines, <60 ml/min/1.73m2 is sufficient to diagnose a patient with chronic kidney disease. Performed By: #### C BC CMP, PAB #### [facility] [address] Estimated GFR (Non- Am > 60 Normal [facility] Comment on above: Performed By: #### C DARIUS PATEL, PAB #### [facility] [address] Globulin (S) [Mass/Vol] 2.8 g/dL Normal F [facility] Comment on above: Performed By: #### C JORGE CMP, PAB #### [address] Glucose [Mass/Vol] 115 mg/dL High 70-100 [facility] Comment on above: Result Comment: [facility] Glucose Reference Range is dependent on time and content of last meal. Glucose of more than 200 mg/dL in a nonstressed, ambulatory subject supports the diagnosis of Diabetes Mellitus. ADA recommended reference range Performed By: #### C DARIUS PATEL, PAB #### [address] Potassium [Moles/Vol] 3.7 mmol/L Normal 3.5-5.1 [facility] Comment on above: Performed By: #### C DARIUS PATEL, PAB #### [address] Protein [Mass/Vol] 5.6 g/dL Low 6.1-7.9 [facility] Comment on above: Performed By: #### C JORGE CMP, PAB #### [address] Sodium [Moles/Vol] 140 mmol/L Normal 136-146 [facility] Comment on above: Performed By: #### C JORGE CMP, PAB #### [address] Urea nitrogen [Mass/Vol] 7 mg/dL Low 9-23 [facility] Comment on above: Performed By: #### C BC, CMP, PAB #### [place] [address] [place] Dipstick and Microscopicon 0 2-25-2022 Appearance (U) Clear Normal Clear [facility] Comment on above: Order Comment: Name Collection Type:: Voided Performed By: #### A DDONUAPLUS, CUU #### [address] Bacteria,Urine 4+ High None Seen [facility] Comment on above: Order Comment: Name Collection Type:: Voided Performed By: #### A DDONUAPLUS, CUU #### [place] [address] [place] Bilirubin,Urine Negative Normal Negative [facility] Comment on above: Order Comment: Name Collection Type:: Voided Performed By: #### A DDONUAPLUS, CUU #### [address] Color (U) Yellow Normal Yellow [facility] Comment on above: Order Comment: Name Collection Type:: Voided Performed By: #### A DDONUAPLUS, CUU #### [address] Glucose Ql (U) Normal Normal Normal [facility] Comment on above: Order Comment: Name Collection Type:: Voided Performed By: #### A DDONUAPLUS, CUU #### [address] Hyaline Casts,Urine 0-8 Normal 0-8 [facility] Comment on above: Order Comment: Name Collection Type:: Voided Result Comment: PERF ORMED BY: [place] [address] PATHOLOGIST MANAGER [employer] HUY COX M.D. Performed By: #### A DDONUAPLUS, CUU #### [place] [address] [place] Ketones Ql (U) Negative Normal Negative [facility] Comment on above: Order Comment: Name Collection Type:: Voided Performed By: #### A DDONUAPLUS, CUU #### [place] [address] [place] Leukocyte esterase Test strip Ql (U) 3+ High Negative [facility] Comment on above: Order Comment: Name Collection Type:: Voided Performed By: #### A DDONUAPLUS, CUU #### [address] Nitrite,Urine Positive High Negative [facility] Comment on above: Order Comment: Name Collection Type:: Voided Performed By: #### A DDONUAPLUS, CUU #### [address] Occult Blood,Urine Negative Normal Negative [facility] Comment on above: Order Comment: Name Collection Type:: Voided Result Comment: PERF ORMED BY: [place] [address] PATHOLOGIST MANAGER [employer] HUY COX M.D. Performed By: #### A DDONUAPLUS, CUU #### [address] pH (U) 5.5 [pH] Normal 5.0-9.0 [facility] Comment on above: Order Comment: Name Collection Type:: Voided Performed By: #### A DDONUAPLUS, CUU #### [address] Protein,Urine Negative Normal Negative [facility] Comment on above: Order Comment: Name Collection Type:: Voided Performed By: #### A DDONUAPLUS, CUU #### [place] [address] [place] RBC LM.HPF (Urine sed) [#/Area] 0 /[HPF] Normal 0-4 [facility] Comment on above: Order Comment: Name Collection Type:: Voided Performed By: #### A DDONUAPLUS, CUU #### [place] [address] [place] Specificy [place],Urine 1.012 Normal 1.00 1-1.03 0 [facility] Comment on above: Order Comment: Name Collection Type:: Voided Performed By: #### A DDONUAPLUS, CUU #### [facility] [address] [place] [address] Squamous Epithelial Cell,Urine 0-1 Normal 0-2 [facility] Comment on above: Order Comment: Name Collection Type:: Voided Performed By: #### A DDONUAPLUS, CUU #### [address] Urobilinogen,Urine Normal Normal Normal [facility] Comment on above: Order Comment: Name Collection Type:: Voided Performed By: #### A DDONUAPLUS, CUU #### [address] WBC,Urine 20-49 High 0-4 [facility] Comment on above: Order Comment: Name Collection Type:: Voided Performed By: #### A DDONUAPLUS, CUU #### [address] [address] Prealbuminon 10-30-2021 Prealbumin [Mass/Vol] 13.1 mg/dL Low 18.0-38.0 [facility] Comment on above: Result Comment: PERF ORMED BY: [place] [address] PATHOLOGIST MANAGER FINANCIAL SERVICES HUY COX M.D. Performed By: #### C BC, CMP, PAB #### [address] Urine Cultureon 10-30-2021 Bacteria identified Cx Nom (U) ORGANISM: Escherichia coli (O:ESCCOL) Hodgen Count >100,000 Aerobic JOSE Charge (NUC86) SUSCEPTIBILITY [...] RESISTANT TO ALL B-LACTAM DRUGS. PERFORMED BY: [place] [address] PATHOLOGIST MANAGER FINANCIAL SERVICES HUY COX M.D. Normal [facility] Comment on above: Performed By: #### A DDCHANTEUAKRIS, RUBIU #### [address] COVID-19 FRon 10-29-2021 SARS-CoV-2 (COVID-19) RNA ADRIÁN+probe Ql (Unsp spec) Negative Normal Negative [facility] Comment on above: Order Comment: Healt hcare Worker?: N Result Comment: Testing for SARS-CoV-2 by RT-PCR This test was developed and its performance characteristics determined by [employer] and validated at the [facility]. This test has not been [...] is terminated or revoked sooner. PERFORMED BY: [facility] [address] [place] [address] PATHOLOGIST MANAGER FINANCIAL SERVICES HUY COX M.D. Performed By: #### C OVID 19 [facility] #### [facility] [address] Clinical Event Note-Need for Hospital Bedon [...] of the lumbar region. Provider/Team Contact Info-Pager [phone] Electronic Signatures: Sharmin Guaman (SENIOR ASSISTANT MANAGER-HUMAN SERVICES PROGRAM SPECIALIST) (Signed 02-Oct-2021 15:19) Authored: Clinical Event Note Last Updated: 02-Oct-2021 15:19 by Sharmin Guaman (SENIOR ASSISTANT MANAGER-HUMAN SERVICES PROGRAM SPECIALIST) Normal [facility] Clinical Event Note-Need for wheel [...] self propel or has a managed care director to provide assistance. Provider/Team Contact Info-Pager [phone] Electronic Signatures: Sharmin Guaman (SENIOR ASSISTANT MANAGER-HUMAN SERVICES PROGRAM SPECIALIST) (Signed 02-Oct-2021 15:27) Authored: Clinical Event Note Last Updated: 02-Oct-2021 15:27 by Sharmin Guaman (SENIOR ASSISTANT MANAGER-HUMAN SERVICES PROGRAM SPECIALIST) Normal [facility] Daily Progress Note-Neurosur jinny 10-02-2021 Daily Progress Note-Neurosurgery Service: Neurosurgery Subjective Data: MORALES LEE is a 46 year old Female who is Hospital Day # 18 and POD #11 for posterior L4-L5 decompression;posterior L4-L5 arthrodesis. Objective Data: Objective Information: T PRBPSpO2 [id number]/8397% Date/Time1/28 1: 1: 1: 1: 1:28 Range(36.2C [...] 2021 10:00 pm000 Oct 01, 2021 2:00 [id number] The Intake and Output Totals for the [...] the note. I personally evaluated the patient [id number] Electronic Signatures: Kenneth Philippe (Resident)) (Signed 02-Oct-2021 [...] duration of trip. Electronic Signatures: Ambrocio Izaguirre (SENIOR ASSISTANT MANAGER-HUMAN SERVICES PROGRAM SPECIALIST) (Signed 01-Oct-2021 17:11) Authored: Clinical Event Note Last Updated: 01-Oct-2021 17:11 by Ambrocio Izaguirre (SENIOR ASSISTANT MANAGER-HUMAN SERVICES PROGRAM SPECIALIST) Normal [facility] Clinical Event Note-Need for hospital [...] when lying flat. Electronic Signatures: Ambrocio Izaguirre (SENIOR ASSISTANT MANAGER-HUMAN SERVICES PROGRAM SPECIALIST) (Signed 01-Oct-2021 14:48) Authored: Clinical Event Note Last Updated: 01-Oct-2021 14:48 by Ambrocio Izaguirre (SENIOR ASSISTANT MANAGER-HUMAN SERVICES PROGRAM SPECIALIST) Normal [facility] Daily Progress Note-Nuha leonidasgaurang 10-01-2021 Daily Progress Note-Neurosurgery Service: Neurosurgery Subjective Data: MORALES LEE is a 46 year old Female who is Hospital Day # 17 and POD #10 for posterior L4-L5 decompression;posterior L4-L5 arthrodesis. Objective Data: Objective Information: T PRBPSpO2 [id number]/7194% Date/Time10/01 0: 0: 0:381 0:381 0:38 Range(35.6C - 36.8C ) (64 - 96 ) (16 - 19 ) (94 - 138 )/ (59 - 83 ) (92% - 94% ) Pain reported at 09/30 9:00: 2 = Mild ---- Intake and Output ----- Mn/Dy/Year TimeIntakeOutputNet Sep 29, 2021 10:00 [id number] Sep 29, 2021 2:00 [id number] Sep 29, 2021 6:00 am000 The Intake [...] 01-Oct-2021 10:29 by Lex Frederick) Normal [facility] Daily Progress Note-Neurosurgery This report has been cancelled. Normal [facility] Daily Progress Note-Nuha stearns 09-30-2021 Daily Progress Note-Neurosurgery Service: Neurosurgery Subjective Data: MORALES LEE is a 46 year old Female who is Hospital Day # 15 and POD #8 for posterior L4-L5 decompression;posterior L4-L5 arthrodesis. Objective Data: Objective Information: T PRBPSpO2 Value36.17019637/7393% Date/Time09/29 16: 16: 16: 16: 16:00 Range(36C - 36.7C ) (67 - 86 ) (17 - 20 ) (94 - 153 )/ (15 - 113 ) (93% - 98% ) Pain reported at 09/29 9:56: 5 = Moderate ---- Intake and Output ----- Mn/Dy/Year TimeIntakeOutputNet Sep 29, 2021 2:00 [id number] Sep 29, 2021 6:00 am000 Sep 28, 2021 10:00 [id number] The Intake and Output Totals for the [...] the note. I personally evaluated the patient [id number] Electronic Signatures: Lex Frederick) (Signed 30-Sep-2021 11:18) Authored: Note Completion Co-Signer: Service, Subjective Data, Objective Data, Assessment and Plan, Note Completion Jaya Mosquera (Resident)) (Signed 30-Sep-2021 03:18) Authored: Service, Subjective Data, Objective Data, Assessment and Plan, Note Completion Last Updated: 30-Sep-2021 11:18 by Lex Frederick) [facility] Rehab Ticg-mn-nkyfbasqw - co -tx /c OT to address multidiscipon 09-30-2021 Rehab Zjyx-jn-wlsuxyxxv - co-tx /c OT to address multidiscip Rehab: Info: Disciplinephysical physical therapy manager Mode of Treatmentphysical therapy; co-treatment; co-tx /c OT to address multidisciplinary functional needs and maximize pt's safety. Time IN12:15 Time OUT12:55 Total Treatment [id number] Patient in ... at end of sessionbed, 3 railings up; alarm off; not on at start of visit Communicated with ... at end of sessionbedside nurse Patient Effortgood Symptoms Noted During/After Treatmentfatigue Treatment Considerations/CommentsEx tensive discussion /c amongst COVER SEAMER, OT, and pt regarding her current physical [...] rolling right; rolling left; scooting/bridging Roll Left [place] (Bed Mobility)moderate assist (50% patient effort); 1 person assist; nonverbal cues (demo/gesture); verbal cues Roll Right [place] (Bed Mobility)moderate assist (50% patient effort); 1 person assist; nonverbal cues (demo/gesture); verbal cues Scoot/Bridge [place] (Bed Mobility)maximum assist (25% patient effort); 2 person assist; nonverbal cues (demo/gesture); verbal cues Zwvzxi-tc-Nca [place] (Bed Mobility)maximum assist (25% patient effort); 2 person assist; nonverbal cues (demo/gesture); verbal cues Gnl-tl-Uxhvea [place] (Bed Mobility)maximum assist (25% patient effort); 2 person assist; nonverbal cues (demo/gesture); verbal cues Assistive Device (Bed Mobility)bed rails; draw sheet Comment, Bed MobilityPt showing improvement in her ability to roll, performing 50% of AROM to achieve full rolling position. Transfer Assessment/Interventionss it to stand transfer; stand to sit transfer Comment, TransfersToday's session, OT and I utilized Shop[employer]list Stand device to assist pt into full [...] Pt repositioned back to sitting EOB. Sit-Stand [place] (Transfers)dependent (less than 25% patient effort) Sit-Stand Assistive Device (Transfers)mechanical lift/aid Stand-Sit [place] (Transfers)dependent (less than 25% patient effort) Stand-Sit [...] Score8 Short Term Goals: Bed Mobility: Date [id number] Bed Mobility: [place] Level Goalminimum assist (75% patients effort) Bed Mobility: Physical Assist Level Goal1-person assist, verbal cues Bed Mobility: Time Frame for Goal2 wks Transfer: Established [id number] Transfer: Transfer Type Rdeeedz-dc-hzyds/chair-to -bed; nhx-jd-ciutw/fsitc-ls-frh Transfer: [place] Level Goalmoderate assist (50% patients effort) Transfer: Physical Assist Level Goal1-person assist; verbal cues Transfer: Assistive Device Goalrolling walker Transfer: Time Frame for Goal2 wks Gait: Established [id number] Gait: [place] Level Goalmoderate assist (50% patients (more content not included)... Normal [facility] Rehab Note-occupational health professional apy - co-tx with PT to maximizeon 09-30-2021 Rehab Note-occupational therapy - co-tx with PT to maximize Rehab: Info: Disciplineoccupational therapist Mode of Treatmentoccupational therapy; co-tx with PT to maximize pt's mobility and safety. Time IN12:15 Time OUT12:55 Total Treatment [id number] Patient in ... at end of sessionbed, [...] olling right; rolling left; scooting/bridging Roll Left [place] (Bed Mobility)moderate assist (50% patient effort); 1 person assist; nonverbal cues (demo/gesture); verbal cues Roll Right [place] (Bed Mobility)moderate assist (50% patient effort); 1 person assist; nonverbal cues (demo/gesture); verbal cues Scoot/Bridge [place] (Bed Mobility)maximum assist (25% patient effort); 2 [...] lower body dressing; upper body dressing; bathing [place] Level (Bathing)set up; verbal cues; moderate assist (50% patient effort); 1 person assist Comment (Bathing)anticipated due to impaired balance, strength, and pain. [place] Level (Upper Body Dressing)set up; verbal cues; moderate assist (50% patient effort) Comment (Upper Body Dressing)anticipated due to impaired balance, strength, and pain. [place] Level (Lower Body Dressing)don; socks; dependent (less than 25% patient effort) Position (Lower Body Dressing)supine [place] Level (Grooming)modified independence Comment (Grooming)Pt observed applying Orajel to gums, able to manage packaging, cap un/screwing, and application. [place] Level (Feeding)modified independence Comment (Feeding)Pt able to retrieve OJ cup from tray table at R side, bring to mouth, and drink appropriately. [place] Level (Toileting)dependent (less than 25% patient effort); [...] Score15 Short Term Goals: Bed Mobility: Date [id number] Bed Mobility: [place] Level Goalcontact guard Bed Mobility: Physical Assist Level Goalset-up, verbal cues Bed Mobility: Time Frame for Goal2 wks Transfer: Established [id number] Transfer: Transfer Type Gdtdzyf-sw-dstuj/chair-to -bed; zsm-ds-bcphl/tyjij-uu-dgv ; toilet Transfer: [place] Level Goalminimum assist (75% patients effort) Transfer: Physical Assist Level Goalset-up; verbal cues; 1-person assist Transfer: Assistive Device GoalLRD Transfer: Time Frame for Goal2 wks Balance: Established [id number] Balance: Goal DetailsPt will perform ADL while reaching outside MADDIE and returning self to midline >8 minutes with set-up assist, SBA, and minimal verbal cues for safety. Enrique (more content not included)... Normal [facility] Daily Progress Note-Neurosjudy stearns 09-29-2021 Daily Progress Note-Neurosurgery Service: Neurosurgery Subjective Data: MORALES LEE is a 46 year old Female who is Hospital Day # 14 and POD #7 for posterior L4-L5 decompression;posterior L4-L5 arthrodesis. Objective Data: Objective Information: T PRBPSpO2 [id number]/6993% Date/Time09/28 4: 8: 8: 8: 8:00 Range(36C [...] 2021 6:00 am000 Sep 27, 2021 10:00 [id number] Sep 27, 2021 2:00 [id number] The Intake and Output Totals for the last 24 hours are: IntakeOutputNet [id number] Physical Exam by System: Neurological: A&Ox3 RUE [...] the note. I personally evaluated the patient [id number] Electronic Signatures: Lex Frederick) (Signed 29-Sep-2021 09:23) Authored: Note Completion Co-Signer: Service, Subjective Data, Objective Data, Assessment and Plan, Note Completion Jaya Mosquera (Resident)) (Signed 29-Sep-2021 03:01) Authored: Service, Subjective Data, Objective Data, Assessment and Plan, Note Completion Last Updated: 29-Sep-2021 09:23 by Lex Frederick) [facility] Rehab Fujy-jl-eybwvvgad - co -tx /c OT to address multidiscipon 09-29-2021 Rehab Wqbt-bk-lburydkzg - co-tx /c OT to address multidiscip Rehab: Info: Disciplinephysical physical therapy manager Mode of Treatmentphysical therapy; co-treatment; co-tx /c OT to address multidisciplinary functional needs and maximize pt's safety. Time IN14:30 Time OUT15:40 Total Treatment [id number] Patient in ... at end of sessionbed, [...] to sit; sit to supine Roll Left [place] (Bed Mobility)maximum assist (25% patient effort); 2 person assist; verbal cues; nonverbal cues (demo/gesture) Roll Right [place] (Bed Mobility)maximum assist (25% patient effort); 2 person assist; verbal cues; nonverbal cues (demo/gesture) Scoot/Bridge [place] (Bed Mobility)maximum assist (25% patient effort); 2 person assist; nonverbal cues (demo/gesture); verbal cues Tolpjh-wb-Nmf [place] (Bed Mobility)maximum assist (25% patient effort); 2 person assist; nonverbal cues (demo/gesture); verbal cues Wio-xp-Nwxtfb [place] (Bed Mobility)verbal cues; nonverbal cues (demo/gesture); maximum [...] Pt repositioned back to sitting EOB. Sit-Stand [place] (Transfers)dependent (less than 25% patient effort) Sit-Stand Assistive Device (Transfers)mechanical lift/aid Stand-Sit [place] (Transfers)dependent (less than 25% patient effort) Stand-Sit [...] Score8 Short Term Goals: Bed Mobility: Date [id number] Bed Mobility: [place] Level Goalminimum assist (75% patients effort) Bed Mobility: Physical Assist Level Goal1-person assist, verbal cues Bed Mobility: Time Frame for Goal2 wks Transfer: Established [id number] Transfer: Transfer Type Ryjchtk-fz-wrjsv/chair-to -bed; epg-su-phuik/htqiz-ia-cvg Transfer: [place] Level Goalmoderate assist (50% patients effort) Transfer: Physical Assist Level Goal1-person assist; verbal cues Transfer: Assistive Device Goalrolling walker Transfer: Time Frame for Goal2 wks Gait: Established [id number] Gait: [place] Level Goalmoderate assist (50% patients effort) Gait: Physical Assist Level1-person assist; verbal cues Gait: Assistive Device Goalrolling walker Gait: Distance Goal15 feet Gait: Time Frame for Goal2 wks Balance: Established [id number] Balance: Goal DetailsSitting EOB 20 minutes with 0-1 UE support, SBA for static sitting, CGA for dynamic. Standing 1 minute with FWW and CGA Education: Learnerpatient Topicrehab plan of care; discharge recommendations including destination and/or equipment Outcome Summary: Progress: Physical Therapyprogress towards functional goals is fair Outcome (more content not included)... Normal [facility] Rehab Note-occupational health professional apy - co-tx with PT to maximizeon 09-29-2021 Rehab Note-occupational therapy - co-tx with PT to maximize Rehab: Info: Disciplineoccupational therapist Mode of Treatmentoccupational therapy; co-tx with PT to maximize pt's mobility and safety. Time IN14:30 Time OUT15:40 Total Treatment Memqlie25 Patient in ... at end of sessionbed, [...] to sit; sit to supine Roll Left [place] (Bed Mobility)maximum assist (25% patient effort); 2 person assist; verbal cues; nonverbal cues (demo/gesture); multiple rolls to adjust harness Roll Right [place] (Bed Mobility)maximum assist (25% patient effort); 2 person assist; verbal cues; nonverbal cues (demo/gesture); multiple rolls to adjust harness Scoot/Bridge [place] (Bed Mobility)maximum assist (25% patient effort); 2 person assist; nonverbal cues (demo/gesture); verbal cues; boost HOB Aysnea-eh-Hev [place] (Bed Mobility)maximum assist (25% patient effort); 2 person assist; nonverbal cues (demo/gesture); verbal cues Ywk-wy-Frbfod [place] (Bed Mobility)verbal cues; nonverbal cues (demo/gesture); maximum assist (25% patient effort); 2 person assist Assistive Device (Bed Mobility)draw sheet; bed rails Transfer Assessment/Interventionss it to stand transfer; stand to sit transfer Sit-Stand [place] (Transfers)dependent (less than 25% patient effort) Sit-Stand Assistive Device (Transfers)mechanical lift/aid; Faye Plus Stand-Sit [place] (Transfers)dependent (less than 25% patient effort) Stand-Sit Assistive Device (Transfers)mechanical lift/aid; [place]aye Plus Safety Issues Impacting Function (Mobility)awareness of need for assistance; insight into deficits/self awareness Impairments Impacting Function (Mobility)endurance/activ ity tolerance; strength; balance; coordination; postural/trunk control ADL: BADL Assessment/Interventionto ileting; feeding; grooming; lower body dressing; upper body dressing; bathing [place] Level (Bathing)set up; verbal cues; moderate assist (50% patient effort); 1 person assist Comment (Bathing)anticipated due to impaired balance, strength, and pain. [place] Level (Upper Body Dressing)set up; verbal cues; moderate assist (50% patient effort) Comment (Upper Body Dressing)anticipated due to impaired balance, strength, and pain. [place] Level (Lower Body Dressing)don; socks; dependent (less than 25% patient effort) Position (Lower Body Dressing)supine [place] Level (Grooming)set up; contact guard Comment (Grooming)anticipated due to impaired balance, strength, and pain. [place] Level (Feeding)set up; modified independence Comment (Feeding)anticipated [place] Level (Toileting)dependent (less than 25% patient effort); purewick Impairments, BADL Safety/Performancebalance ; cognition; endurance/activity tolerance; strength; trunk/postural control Cognitive Impairments, BADL Safety/Performanceawarene ss, need for assistance; insight into deficits/self awareness; judgment; problem solving/reasoning Motor: Sitting, Static (Balance)good balance SBA Sitting, Dynamic (Balance)fair balance CGA Eru-me-Tfzmo (Balance)poor balance Total A via Faye Plus lift Standing, Static (Balance)poor balance Max A x1 - via Faye Plus Standing, Dynamic (Balance)unable to balance Balance ActivitiesPt sat EOB ~20 minutes throughout session primarily with SB (more content not included)... Normal [facility] Clinical Event Note-Medical Assessmenton 09-28-2021 [...] oil enema alternating with tap water enema [id number] - Bisacodyl suppository QHS Daily - Monitor [...] for wound check 10/07/21 at 10:15 am, [facility] 5th floor - F/U with [...] note 45 minutes; Electronic Signatures: Concetta Shi (SENIOR ASSISTANT MANAGER-HUMAN SERVICES PROGRAM SPECIALIST) (Signed 28-Sep-2021 14:31) Authored: Clinical Event Note Last Updated: 28-Sep-2021 14:31 by Concetta Shi (SENIOR ASSISTANT MANAGER-HUMAN SERVICES PROGRAM SPECIALIST) Normal [facility] Daily Progress Note-Gastroen terologyon 09-28-2021 Daily Progress Note-Gastroenterology Service: Gastroenterology Subjective Data: MORALES LEE is a 46 year old Female who is Hospital Day # 14 and POD #7 for posterior L4-L5 decompression;posterior L4-L5 arthrodesis. No events overnight. Had one bowel movement this am. Otherwise no complaints. Objective Data: Objective Information: T PRBPSpO2 [id number]/6993% Date/Time09/28 4: 8: 8: 8: 8:00 Range(36C [...] 2021 6:00 am000 Sep 27, 2021 10:00 [id number] Sep 27, 2021 2:00 [id number] The Intake and Output Totals for the last 24 hours are: IntakeOutputNet [id number] Physical Exam by System: Constitutional: Constitutional: A&Ox3, [...] tr (more content not included)... Normal [facility] Daily Progress Note-Nuha jinny 09-28-2021 Daily Progress Note-Neurosurgery Service: Neurosurgery Subjective Data: MORALES LEE is a 46 year old Female who is Hospital Day # 14 and POD #7 for posterior L4-L5 decompression;posterior L4-L5 arthrodesis. Objective Data: Objective Information: T PRBPSpO2 [id number]/4893% Date/Time09/28 4: 4: 4: 4: 4:00 Range(36C - 36.6C ) (72 - 87 ) (15 - 22 ) (92 - 153 )/ (48 - 113 ) (92% - 99% ) As of 27-Sep-2021 22:00:00, patient is on 2 L/min of oxygen via nasal cannula. Pain reported at 09/27 22:00: 0 = None ---- Intake and Output ----- Mn/Dy/Year TimeIntakeOutputNet Sep 26, 2021 10:00 [id number] Sep 26, 2021 2:00 [id number] The Intake and Output Totals for the last 24 hours are: IntakeOutputNet [id number] Physical Exam by System: Neurological: A&Ox3 RUE [...] the note. I personally evaluated the patient [id number] Electronic Signatures: Fidel Maciel (Resident)) (Signed 28-Sep-2021 05:47) Authored: Service, Subjective Data, Objective Data, Assessment and Plan, Note Completion Lex Frederick) (Signed 28-Sep-2021 07:32) Authored: Note Completion Co-Signer: Service, Subjective Data, Objective Data, Assessment and Plan, Note Completion Last Updated: 28-Sep-2021 07:32 by Lex Frederick) Normal [facility] RENAL FUNCTION PANELon 09-28 Albumin [Mass/Vol] 3.1 g/dL Low 3.4 - 5.0 [facility] Comment on above: Performed By: #### R ENAL ####[id number] [place] [address] Anion gap [Moles/Vol] 17 mmol/L Normal 10 - 20 [facility] Comment on above: Performed By: #### R ENAL ####[id number] [place] [address] Calcium [Mass/Vol] 8.4 mg/dL Low 8.6 - 10.6 [facility] Comment on above: Performed By: #### R ENAL ####[id number] [place] [address] Chloride [Moles/Vol] 102 mmol/L Normal 98 - 107 [facility] Comment on above: Performed By: #### R ENAL ####[id number] [place] [address] Creatinine [Mass/Vol] 0.47 mg/dL Low 0.50 - 1.05 [facility] Comment on above: Performed By: #### R ENAL ####[id number] [place] [address] eGFR FEMALE >90 Normal >90 [facility] Comment on above: Result Comment: CALC ULATIONS OF ESTIMATED GFR ARE PERFORMED USING THE 2020 CKD-EPI STUDY REFIT EQUATION WITHOUT THE RACE VARIABLE FOR THE IDMS-TRACEABLE CREATININE METHODS. https://jasn.asnjournals.org/content//ASN.013 6181095 Performed By: #### R ENAL ####[id number] [place] [address] Glucose [Mass/Vol] 74 mg/dL Normal 74 - 99 [facility] Comment on above: Performed By: #### R ENAL ####[id number] [place] [address] HCO3 (Bld) [Moles/Vol] 27 mmol/L Normal 21 - 32 [facility] Comment on above: Performed By: #### R ENAL ####[id number] [place] [address] Phosphate [Mass/Vol] 3.4 mg/dL Normal 2.5 - 4.9 [facility] Comment on above: Result Comment: The performance characteristics of phosphorus testing in heparinized plasma have been validated by the individual laboratory site where testing is performed. Testing on heparinized plasma is not approved by the FDA; however, such approval is not necessary. Performed By: #### R ENAL ####[id number] [place] [address] Potassium [Moles/Vol] 3.7 mmol/L Normal 3.5 - 5.3 [facility] Comment on above: Performed By: #### R ENAL ####[id number] [place] [address] Sodium [Moles/Vol] 142 mmol/L Normal 136 - 145 [facility] Comment on above: Performed By: #### R ENAL ####[id number] [place] [address] Urea nitrogen [Mass/Vol] 6 mg/dL Normal 6 - 23 [facility] Comment on above: Performed By: #### R ENAL ####[id number] [place] [address] Radiologyon 09-28-2021 XR Abdomen AP Normal MG-Gastroen terology-Rosendo hernandesell 6 I Work Phone: Rehab Note-attemptedon 09-28 Rehab Note-attempted Rehab: Info: Disciplinephysical physical therapy manager Mode of Treatmentattempted Time IN15:30 Reason Treatment Not Performedpatient/family declined treatment, not feeling well Treatment Considerations/CommentsPt declined therapy at this time 2* increased fatigue, nausea. Pt stated NO! NO! NO! upon therapists arrival, even /c increased encouragement. Will reattempt as schedule allows. Short Term Goals: Bed Mobility: Date [id number] Bed Mobility: [place] Level Goalminimum assist (75% patients effort) Bed Mobility: Physical Assist Level Goal1-person assist, verbal cues Bed Mobility: Time Frame for Goal2 wks Transfer: Established [id number] Transfer: Transfer Type Xkipoyf-so-ceyhm/chair-to -bed; jhe-uf-nfosl/qqygq-lu-rjd Transfer: [place] Level Goalmoderate assist (50% patients effort) Transfer: Physical Assist Level Goal1-person assist; verbal cues Transfer: Assistive Device Goalrolling walker Transfer: Time Frame for Goal2 wks Gait: Established [id number] Gait: [place] Level Goalmoderate assist (50% patients effort) Gait: Physical Assist Level1-person assist; verbal cues Gait: Assistive Device Goalrolling walker Gait: Distance Goal15 feet Gait: Time Frame for Goal2 wks Balance: Established [id number] Balance: Goal DetailsSitting EOB 20 minutes with 0-1 UE support, SBA for static sitting, CGA for dynamic. Standing 1 minute with FWW and CGA Electronic Signatures: Yosi Campbell (COVER SEAMER) (Signed 28-Sep-2021 15:32) Entered: Short Term Goals, Info Authored: Deon, Short Term Goals Boone Broussard (PT) (Signed 01-Oct-2021 09:01) Co-Signer: Short Term Goals, Info Last Updated: 01-Oct-2021 09:01 by Boone Broussard (PT) Normal [facility] Rehab Note-attempted Rehab: Info: Mode [...] 15:28 by Silvana Marshall (OT) Normal [facility] Renal Function Panelon 09-28 Albumin [...] RACE VARIABLE FOR THE IDMS-TRACEABLE CREATININE METHODS.https://jasn.asnjournals.org/content/early /ASN.4811638571 TH ABDOMEN AP VIEWon 022 ABDOMEN AP VIEW Patient Name: MORALES LEE STUDY: ABDOMEN AP VIEW; 09/28/2021 1:22 pm INDICATION: Abd. dist. . COMPARISON: 09/27/2021 abdominal radiograph. ACCESSION NUMBER(S): [id number] ORDERING CLINICIAN: CONCETTA SHI FINDINGS: Two AP [...] as stated. This study was interpreted at [facility], [place], [place]. Electronically signed by: TANIKA SUTTON MD [...] admission for post-op pain including a dilaudid COMPUTER ANIMATOR. Has been on scheduled bowel regimen with [...] penicillin: Unknown Objective: Objective Information: T PRBPSpO2 [id number]/47416% Date/Time09/27 4: 4: 4:001 4:00 Range (76 [...] ACDFF, (more content not included)... Normal [facility] Daily Progress Note-Neurosur jinny 09-27-2021 Daily Progress Note-Neurosurgery Service: Neurosurgery Subjective Data: MORALES LEE is a 46 year old Female who is Hospital Day # 13 and POD #6 for posterior L4-L5 decompression;posterior L4-L5 arthrodesis. Objective Data: Objective Information: T PRBPSpO2 [id number]/65709% Date/Time09/26 11:0809/27 4: 4: 4: 4:00 Range(37C [...] 2021 6:00 am000 Sep 26, 2021 10:00 [id number] Sep 26, 2021 2:00 [id number] The Intake and Output Totals for the last 24 hours are: IntakeOutputNet [id number] Physical Exam by System: Neurological: A&Ox3 RUE [...] the note. I personally evaluated the patient [id number] Electronic Signatures: Chaparro Umana (Resident)) (Signed 27-Sep-2021 06:11) Authored: Service, Subjective Data, Objective Data, Assessment and Plan, Note Completion Natalia Palacios) (Signed 08-Oct-2021 14:31) Authored: Note Completion Co-Signer: Service, Subjective Data, Objective Data, Assessment and Plan, Note Completion Last Updated: 08-Oct-2021 14:31 by Natalia Palacios) Normal [facility] MAGNESIUMon 09-27-2021 Magnesium [Mass/Vol] 1.80 mg/dL Normal 1.60 - 2.40 [facility] Comment on above: Performed By: #### C BC #### [facility] [address] [place] [address] Magnesium, Serumon Magnesium [Mass/Vol] 1.80 mg/dL See Below MG-G astroen terraiza-Rosendo moura 6 [facility] Work Phone: Comment on above: Reference Range: 1.6 0 - 2.40 RENAL FUNCTION PANELon 09-27 Albumin [Mass/Vol] 3.3 g/dL Low 3.4 - 5.0 [facility] Comment on above: Performed By: #### R ENAL #### [facility] [address] [place] [address] Anion gap [Moles/Vol] 17 mmol/L Normal 10 - 20 [facility] Comment on above: Performed By: #### R ENAL #### [facility] [address] [place] [address] Calcium [Mass/Vol] 8.5 mg/dL Low 8.6 - 10.6 [facility] Comment on above: Performed By: #### R ENAL #### [facility] [address] [place] [address] Chloride [Moles/Vol] 98 mmol/L Normal 98 - 107 [facility] Comment on above: Performed By: #### R ENAL #### [facility] [address] [place] [address] Creatinine [Mass/Vol] 0.44 mg/dL Low 0.50 - 1.05 [facility] Comment on above: Performed By: #### R ENAL #### [facility] [address] [place] [address] eGFR FEMALE >90 Normal >90 [facility] Comment on above: Result Comment: CALC ULATIONS OF ESTIMATED GFR ARE PERFORMED USING THE 2020 CKD-EPI STUDY REFIT EQUATION WITHOUT THE RACE VARIABLE FOR THE IDMS-TRACEABLE CREATININE METHODS. https://jasn.asnjournals.org/content//ASN.391 8550697 Performed By: #### R ENAL #### [facility] [address] [place] [address] Glucose [Mass/Vol] 91 mg/dL Normal 74 - 99 [facility] Comment on above: Performed By: #### R ENAL #### [facility] [address] [place] [address] HCO3 (Bld) [Moles/Vol] 26 mmol/L Normal 21 - 32 [facility] Comment on above: Performed By: #### R ENAL #### [facility] [address] [place] [address] Phosphate [Mass/Vol] 4.0 mg/dL Normal 2.5 - 4.9 [facility] Comment on above: Result Comment: The performance characteristics of phosphorus testing in heparinized plasma have been validated by the individual laboratory site where testing is performed. Testing on heparinized plasma is not approved by the FDA; however, such approval is not necessary. Performed By: #### R ENAL #### [facility] [address] [place] [address] Potassium [Moles/Vol] 4.1 mmol/L Normal 3.5 - 5.3 [facility] Comment on above: Performed By: #### R ENAL #### [facility] [address] [place] [address] Sodium [Moles/Vol] 137 mmol/L Normal 136 - 145 [facility] Comment on above: Performed By: #### R ENAL #### [facility] [address] [place] [address] Urea nitrogen [Mass/Vol] 6 mg/dL Normal 6 - 23 [facility] Comment on above: Performed By: #### R ENAL #### [facility] [address] [place] [address] Radiologyon 09-27-2021 XR Abdomen AP Normal MG-Gastroen [...] RACE VARIABLE FOR THE IDMS-TRACEABLE CREATININE METHODS.https://jasn.asnjournals.org/content/early/ /ASN.3904280315 ABDOMEN AP VIEWon 022 ABDOMEN AP VIEW Patient Name: JESUS MORALES STUDY: ABDOMEN AP VIEW; 09/27/2021 2:33 am INDICATION: vomiting, constipation . COMPARISON: None. ACCESSION NUMBER(S): [id number] ORDERING CLINICIAN: FIDEL MACIEL FINDINGS: 2 AP [...] as stated. This study was interpreted at [place], [place]. Electronically signed by: DWIGHT MOY MD [facility] Daily Progress Note-Neurosjudy stearns 09-26-2021 Daily Progress Note-Neurosurgery Service: Neurosurgery Subjective Data: MORALES LEE is a 46 year old Female who is Hospital Day # 12 and POD #5 for posterior L4-L5 decompression;posterior L4-L5 arthrodesis. Objective Data: Objective Information: T PRBPSpO2 Sadjr5481446/8299% Date/Time09/25 17: 12:001 17: 17:08 Range (68 - 98 ) (21 - 23 ) (118 - 136 )/ (69 - 82 ) (92% - 99% ) Pain reported at 09/26 3:00: sleeping ---- Intake and Output ----- Mn/Dy/Year TimeIntakeOutputNet Sep 24, 2021 10:00 [id number] Sep 24, 2021 2:00 [id number] Sep 24, 2021 6:00 [id number] The Intake and Output Totals for the last 24 hours are: IntakeOutputNet [id number] Physical Exam by System: Neurological: A&Ox3 RUE [...] the note. I personally evaluated the patient [id number] Electronic Signatures: Jaya Mosquera ( (Resident)) (Signed 26-Sep-2021 07:08) Authored: Service, Subjective Data, Objective Data, Assessment and Plan, Note Completion Natalia Palacios) (Signed 08-Oct-2021 14:10) Authored: Note Completion Co-Signer: Service, Subjective Data, Objective Data, Assessment and Plan, Note Completion Last Updated: 08-Oct-2021 14:10 by Natalia Palacios) Normal [facility] Clinical Event Note-POD 4 / [...] for wound check 10/07/21 at 10:15 am, [facility] 5th floor - F/U with [...] plan of care. Electronic Signatures: Concetta Shi (SENIOR ASSISTANT MANAGER-HUMAN SERVICES PROGRAM SPECIALIST) (Signed 25-Sep-2021 13:30) Authored: Clinical Event Note Last Updated: 25-Sep-2021 13:30 by Concetta Shi (SENIOR ASSISTANT MANAGER-HUMAN SERVICES PROGRAM SPECIALIST) Normal [facility] Daily Progress Note-Nuha stearns 09-25-2021 Daily Progress Note-Neurosurgery Service: Neurosurgery Subjective Data: MORALES LEE is a 46 year old Female who is Hospital Day # 11 and POD #4 for posterior L4-L5 decompression;posterior L4-L5 arthrodesis. Objective Data: Objective Information: T PRBPSpO2 Vfima6603879/6799% Date/Time09/24 16: 16:: 16:00 Range (68 - 78 ) (18 - 19 ) (102 - 117 )/ (57 - 73 ) (95% - 99% ) As of 24-Sep-2021 21:40:00, patient is on 2 L/min of oxygen via nasal cannula. Pain reported at 09/24 21:40: 8 = Severe ---- Intake and Output ----- Mn/Dy/[facility] Sep 23, 2021 10:00 [id number] Sep 23, 2021 6:00 [id number] The Intake and Output Totals for the last 24 hours are: [facility]Out[facility] [id number] Physical Exam by System: Neurological: A&Ox3 RUE [...] the note. I personally evaluated the patient [id number] Electronic Signatures: Lex Frederick) (Signed 25-Sep-2021 11:57) Authored: Note Completion Co-Signer: Service, Subjective Data, Objective Data, Assessment and Plan, Note Completion Alfredo Hendrickson (Resident)) (Signed 25-Sep-2021 05:56) Authored: Service, Subjective Data, Objective Data, Assessment and Plan, Note Completion Last Updated: 25-Sep-2021 11:57 by Lex Frederick) [facility] Rehab Fnar-tz-soimsvfpw - co -tx /c OT to address multidiscipon 09-25-2021 Rehab Bhpi-kb-sbswnbmys - co-tx /c OT to address multidiscip Rehab: Info: Disciplinephysical physical therapy manager Mode of Treatmentphysical therapy; co-treatment; co-tx /c OT to address multidisciplinary functional needs and maximize pt's safety. Time IN15:05 Time OUT15:59 Total Treatment [id number] Patient in ... at end of sessionbed, [...] scooting/bridging; rolling right; rolling left Roll Left [place] (Bed Mobility)maximum assist (25% patient effort); 2 person assist; verbal cues; nonverbal cues (demo/gesture) Roll Right [place] (Bed Mobility)maximum assist (25% patient effort); 2 person assist; verbal cues; nonverbal cues (demo/gesture) Scoot/Bridge [place] (Bed Mobility)maximum assist (25% patient effort); 2 person assist; nonverbal cues (demo/gesture); verbal cues Bafchh-fi-Khi [place] (Bed Mobility)maximum assist (25% patient effort); 2 person assist; verbal cues; nonverbal cues (demo/gesture) Oue-tq-Zeerso [place] (Bed Mobility)maximum assist (25% patient effort); 2 [...] unable to get to full standing. Sit-Stand [place] (Transfers)maximum assist (25% patient effort); verbal cues; nonverbal cues (demo/gesture); 2-3 persona assist Sit-Stand Assistive Device (Transfers)walker, front-wheeled Stand-Sit [place] (Transfers)maximum assist (25% patient effort); nonverbal cues [...] Score8 Short Term Goals: Bed Mobility: Date [id number] Bed Mobility: [place] Level Goalminimum assist (75% patients effort) Bed Mobility: Physical Assist Level Goal1-person assist, verbal cues Bed Mobility: Time Frame for Goal2 wks Transfer: Established [id number]-[id number]-5727 Transfer: Transfer Type Tlkgqka-bj-cpgjz/chair-to -bed; xjy-pn-jjtrl/vvugw-ao-piu Transfer: [place] Level Goalmoderate assist (50% patients effort) Transfer: Physical Assist Level Goal1-person assist; verbal cues Transfer: Assistive Device Goalrolling walker Transfer: Time Frame for Goal2 wks Gait: Established Gait: [place] Level Goalmoderate assist (50% patients effort) Gait: [...] goals is gradual Electronic Signatures: Yosi Campbell (COVER SEAMER) (Signed 25-Sep-2021 16:59) Entered: Outcome Summary, Short Term Goals, Sensory, TherEx, Outcomes Tools, Info, Mobility/Tone Authored: Short Term Goals, Outcome Summary, TherEx, Outcomes Tools, Info, Mobility/Tone, Sensory Boone Broussard (PT) (Signed 01-Oct-2021 09:01) Co-Signer: Outcome Summary, Short Term Goals, Sensory, TherEx (more content not included)... Normal [facility] Rehab Note-occupational health professional apy - Partial co-tx with PT to tue09-25-2021 Rehab Note-occupational therapy - Partial co-tx with PT to Rehab: Info: Disciplineoccupational therapist Mode of Treatmentoccupational therapy; Partial co-tx with PT to maximize pt's mobility and safety. Time IN15:03 Time OUT15:56 Total Treatment [id number] Patient in ... at end of sessionbed, [...] sit to supine; rolling right Roll Left [place] (Bed Mobility)Pt required assist to bend BLE at knees and to initiate turn at shoulders and hips, verbal cues for grasp on bed rail, technique, direction follow, and encouragement.; set up; verbal cues; maximum assist (25% patient effort); 2 person assist Roll Right [place] (Bed Mobility)Pt required assist to bend BLE at knees and to initiate turn at shoulders and hips, verbal cues for grasp on bed rail, technique, direction follow, and encouragement.; set up; verbal cues; maximum assist (25% patient effort); 2 person assist Scoot/Bridge [place] (Bed Mobility)boost HOB; set up; verbal cues; maximum assist (25% patient effort); 2 person assist Eenvpn-ws-Inh [place] (Bed Mobility)HOB elevated; set up; verbal cues; maximum assist (25% patient effort); 2 person assist Dxc-sn-Djpala [place] (Bed Mobility)HOB elevated; set up; verbal cues; maximum assist (25% patient effort); 2 person assist Assistive Device (Bed Mobility)bed rails; draw sheet Transfer Assessment/Interventionss it to stand transfer Sit-Stand [place] (Transfers)set up; verbal cues; maximum assist (25% patient effort); x 2-3 assist Safety Issues Impacting Function (Mobility)ability to follow commands; awareness of need for assistance; insight into deficits/self awareness; judgment; problem solving Impairments Impacting Function (Mobility)balance; cognition; endurance/activity tolerance; pain; strength; postural/trunk control ADL: BADL Assessment/Interventionto ileting; feeding; grooming; lower body dressing; upper body dressing; bathing [place] Level (Bathing)set up; verbal cues; moderate assist (50% patient effort); 1 person assist Comment (Bathing)anticipated due to impaired balance, strength, and pain. [place] Level (Upper Body Dressing)set up; verbal cues; moderate assist (50% patient effort) Comment (Upper Body Dressing)anticipated due to impaired balance, strength, and pain. [place] Level (Lower Body Dressing)don; socks; dependent (less than 25% patient effort) Position (Lower Body Dressing)supine [place] Level (Grooming)set up; contact guard Comment (Grooming)anticipated due to impaired balance, strength, and pain. [place] Level (Feeding)set up; modified independence Comment (Feeding)anticipated [place] Level (Toileting)dependent (less than 25% patient effort); purewick Impairments, BADL Safety/Performancebalance ; cognition; endurance/activity tolerance; strength; trunk/postural control Cognitive Impairments, BADL Safety/Performanceawarene ss, need for assistance; insight into deficits/self awareness; judgment; problem solving/reasoning Motor: Sitting, Static (Balance)good balance SBA Sitting, Dynamic (Balance)fair balance CGA Spd-po-Dhzhn (Balance)poor balance Max A x 2-3 - attempted Standing, Static (Balance)unable to balance Standing, Dynamic (Balance)unable to balance Balance ActivitiesPt sat EOB ~30 minutes with SBA/CGA for safety. Pt demonstrated good sitting balance and trunk control. Pt attempted STS transfers 3x with (more content not included)... Normal [facility] Daily Progress Note-Nuha stearns 09-24-2021 Daily Progress Note-Neurosurgery Service: Neurosurgery Subjective Data: MORALES LEE is a 46 year old Female who is Hospital Day # 10 and POD #3 for posterior L4-L5 decompression;posterior L4-L5 arthrodesis. Objective Data: Objective Information: T PRBPSpO2 [id number]/5499% Date/Time09/23 20:4809/23 20: 20: 20: 20:48 Range(35.5C - 36.1C ) (66 - 75 ) (16 - 19 ) (90 - 118 )/ (54 - 75 ) (98% - 99% ) As of 23-Sep-2021 22:43:00, patient is on 2 L/min of oxygen via nasal cannula. ---- Intake and Output ----- Mn/Dy/Year TimeIntakeOutputNet Sep 22, 2021 10:00 [id number] Sep 22, 2021 2:00 [id number] Sep 22, 2021 6:00 [id number] The Intake and Output Totals for the last 24 hours are: IntakeOutputNet [id number] Physical Exam by System: Neurological: A&Ox3 RUE [...] the note. I personally evaluated the patient [id number] Comments/ Additional Findings Doing well. Kyphotic posture and Back Pain from instability and traumatic chance fracture significantly improved as compared to preop. She developed weakness involving ankle PF/DF following oriental orthodox of alignment from buckling of hypertrophic ligamentum [...] for ambulation and PT for now and chcf if the weakness fails to improve over [...] the (more content not included)... Normal [facility] MAGNESIUMon 09-24-2021 Magnesium [Mass/Vol] 1.71 mg/dL Normal 1.60 - 2.40 [facility] Comment on above: Performed By: #### A FPA3 #### [facility] [address] [place] [address] Magnesium, Serumon Magnesium [Mass/Vol] 1.71 mg/dL See Below MG-G astroen terology-Rosendo moura 6 [facility] Work Phone: Comment on above: Reference Range: 1.6 0 - 2.40 RENAL FUNCTION PANELon 09-24 Albumin [Mass/Vol] 2.6 g/dL Low 3.4 - 5.0 [facility] Comment on above: Performed By: #### R ENAL ####[id number] [place] [address] Anion gap [Moles/Vol] 10 mmol/L Normal 10 - 20 [facility] Comment on above: Performed By: #### R ENAL ####[id number] [place] [address] Calcium [Mass/Vol] 7.7 mg/dL Low 8.6 - 10.6 [facility] Comment on above: Performed By: #### R ENAL ####[id number] [place] [address] Chloride [Moles/Vol] 108 mmol/L High 98 - 107 [facility] Comment on above: Performed By: #### R ENAL ####[id number] [place] [address] Creatinine [Mass/Vol] 0.39 mg/dL Low 0.50 - 1.05 [facility] Comment on above: Performed By: #### R ENAL ####[id number] [place] [address] eGFR FEMALE >90 Normal >90 [facility] Comment on above: Result Comment: CALC ULATIONS OF ESTIMATED GFR ARE PERFORMED USING THE 2020 CKD-EPI STUDY REFIT EQUATION WITHOUT THE RACE VARIABLE FOR THE IDMS-TRACEABLE CREATININE METHODS. https://jasn.asnjournals.org/content//ASN.550 9267311 Performed By: #### R ENAL ####[id number] [place] [address] Glucose [Mass/Vol] 92 mg/dL Normal 74 - 99 [facility] Comment on above: Performed By: #### R ENAL ####[id number] [place] [address] HCO3 (Bld) [Moles/Vol] 29 mmol/L Normal 21 - 32 [facility] Comment on above: Performed By: #### R ENAL ####[id number] [place] [address] Phosphate [Mass/Vol] 3.3 mg/dL Normal 2.5 - 4.9 [facility] Comment on above: Result Comment: The performance characteristics of phosphorus testing in heparinized plasma have been validated by the individual laboratory site where testing is performed. Testing on heparinized plasma is not approved by the FDA; however, such approval is not necessary. Performed By: #### R ENAL ####[id number] [place] [address] Potassium [Moles/Vol] 3.9 mmol/L Normal 3.5 - 5.3 [facility] Comment on above: Performed By: #### R ENAL ####[id number] [place] [address] Sodium [Moles/Vol] 143 mmol/L Normal 136 - 145 [facility] Comment on above: Performed By: #### R ENAL ####[id number] [place] [address] Urea nitrogen [Mass/Vol] 5 mg/dL Low 6 - 23 [facility] Comment on above: Performed By: #### R ENAL ####[id number] [place] [address] Rehab Note-attemptedon 09-24 Rehab Note-attempted Rehab: Info: Mode of Treatmentattempted Time IN15:00 Reason Treatment Not Performedpatient/family declined treatment; Pt declined participation in OT treatment stating she was on a very important call that she needed to take. Electronic Signatures: Silvana Marshall (OT) (Signed 24-Sep-2021 15:29) Authored: Info Last Updated: 24-Sep-2021 15:29 by Silvana Marshall (OT) Normal [facility] Rehab Note-physical therapyo n 09-24-2021 [...] 15:07 by Boone Broussard (PT) Normal [facility] Renal Function Panelon 09-24 Albumin [...] RACE VARIABLE FOR THE IDMS-TRACEABLE CREATININE METHODS.https://jasn.asnjournals.org/content/early /ASN.4701928527 CBCon 09-23-2021 Erythrocyte distribution width (RBC) [Ratio] 13.1 % Normal 11.5 - 14.5 [facility] Comment on above: Performed By: #### C BC ####[id number] [place] [address] Hematocrit (Bld) [Volume fraction] 30.5 % Low 36.0 - 46.0 [facility] Comment on above: Performed By: #### C BC ####[id number] [place] [address] Hemoglobin (Bld) [Mass/Vol] 9.9 g/dL Low 12.0 - 16.0 [facility] Comment on above: Performed By: #### C BC ####[id number] [place] [address] MCHC (RBC) [Mass/Vol] 32.5 g/dL Normal 32.0 - 36.0 [facility] Comment on above: Performed By: #### C BC ####[id number] [place] [address] MCV (RBC) [Entitic vol] 92 fL Normal 80 - 100 [facility] Comment on above: Performed By: #### C BC ####[id number] [place] [address] NUCLEATED RBC 0.0 /100 WBC Normal 0.0-0.0 [facility] Comment on above: Performed By: #### C BC ####[id number] [place] [address] Platelets (Bld) [#/Vol] 244 10*3/uL Normal 150 - 450 [facility] Comment on above: Performed By: #### C BC ####[id number] [place] [address] RBC 3.33 x10E12/L Low 4.00 - 5.20 [facility] Comment on above: Performed By: #### C BC ####[id number] [place] [address] WBC (Bld) [#/Vol] 8.6 10*3/uL Normal 4.4 - 11.3 [facility] Comment on above: Performed By: #### C BC ####[id number] [place] [address] CBC AND DIFFERENTIALon 09-23 % AUTOMATED IMMATURE GRAN 0.4 % Normal 0.0 - 0.9 [facility] Comment on above: Result Comment: Jaleesa ture Granulocyte Count (IG) includes promyelocytes, myelocytes and metamyelocytes but does not include bands. Percent differential counts (%) should be interpreted in the context of the absolute cell counts (cells/L). Performed By: #### C BC #### [facility] [address] [place] [address] Basophils (Bld) [#/Vol] 0.03 10*3/uL Normal 0.00 - 0.10 [facility] Comment on above: Performed By: #### C BC #### [facility] [address] [place] [address] Basophils/100 WBC (Bld) 0.4 % Normal 0.0 - 2.0 [facility] Comment on above: Performed By: #### C BC #### [facility] [address] [place] [address] Eosinophils (Bld) [#/Vol] 0.27 10*3/uL Normal 0.00 - 0.70 [facility] Comment on above: Performed By: #### C BC #### [facility] [address] [place] [address] Eosinophils/100 WBC (Bld) 3.6 % Normal 0.0 - 6.0 [facility] Comment on above: Performed By: #### C BC #### [facility] [address] [place] [address] Erythrocyte distribution width (RBC) [Ratio] 13.2 % Normal 11.5 - 14.5 [facility] Comment on above: Performed By: #### C BC #### [facility] [address] [place] [address] Hematocrit (Bld) [Volume fraction] 30.9 % Low 36.0 - 46.0 [facility] Comment on above: Performed By: #### C BC #### [facility] [address] [place] [address] Hemoglobin (Bld) [Mass/Vol] 10.4 g/dL Low 12.0 - 16.0 [facility] Comment on above: Performed By: #### C BC #### [facility] [address] [place] [address] Lymphocytes (Bld) [#/Vol] 2.41 10*3/uL Normal 1.20 - 4.80 [facility] Comment on above: Performed By: #### C BC #### [facility] [address] [place] [address] Lymphocytes/100 WBC (Bld) 31.9 % Normal 13.0 - 44.0 [facility] Comment on above: Performed By: #### C BC #### [facility] [address] [place] [address] MCHC (RBC) [Mass/Vol] 33.7 g/dL Normal 32.0 - 36.0 [facility] Comment on above: Performed By: #### C BC #### [facility] [address] [place] [address] MCV (RBC) [Entitic vol] 91 fL Normal 80 - 100 [facility] Comment on above: Performed By: #### C BC #### [facility] [address] [place] [address] Monocytes (Bld) [#/Vol] 0.49 10*3/uL Normal 0.10 - 1.00 [facility] Comment on above: Performed By: #### C BC #### [facility] [address] [place] [address] Monocytes/100 WBC (Bld) 6.5 % Normal 2.0 - 10.0 [facility] Comment on above: Performed By: #### C BC #### [facility] [address] [place] [address] Neutrophils (Bld) [#/Vol] 4.32 10*3/uL Normal 1.20 - 7.70 [facility] Comment on above: Performed By: #### C BC #### [facility] [address] [place] [address] Neutrophils/100 WBC (Bld) 57.2 % Normal 40.0 - 80.0 [facility] Comment on above: Performed By: #### C BC #### [facility] [address] [place] [address] NUCLEATED RBC 0.0 /100 WBC Normal 0.0-0.0 [facility] Comment on above: Performed By: #### C BC #### [facility] [address] [place] [address] Platelets (Bld) [#/Vol] 228 10*3/uL Normal 150 - 450 [facility] Comment on above: Performed By: #### C BC #### [facility] [address] [place] [address] RBC 3.39 x10E12/L Low 4.00 - 5.20 [facility] Comment on above: Performed By: #### C BC #### [facility] [address] [place] [address] WBC (Bld) [#/Vol] 7.6 10*3/uL Normal 4.4 - 11.3 [facility] Comment on above: Performed By: #### C BC #### [facility] [address] [place] [address] Complete Blood Count + Diffe rentialon 09-23-2021 [...] % See Below [facility]-Gastroen terology-[facility] 6 [facility] Work Phone: Comment on above: Reference [...] 10*3/uL 4.4 - 11.3 MG-Gas troen terology-[facility] 6 [facility] Work Phone: Complete Blood Count + Differential 0.03 {x10E9/L} See Below MG-Gastroen terology-[facility] 6 [facility] Work Phone: Comment on above: Reference Range: 0.0 0 - 0.10 Complete Blood Count + Differential 0.27 {x10E9/L} See Below [facility]-Gastroen terology-[facility] 6 [facility] Work Phone: Comment on above: Reference Range: 0.0 0 - 0.70 Complete Blood Count + Differential 0.49 {x10E9/L} See Below [facility]-Gastroen terology-[facility] 6 [facility] Work Phone: Comment on above: Reference Range: 0.1 0 - 1.00 Complete Blood Count + Differential 2.41 {x10E9/L} See Below [facility]ology-[facility] 6 [facility] Work Phone: Comment on above: Reference Range: 1.2 0 - 4.80 Complete Blood Count + Differential 4.32 {x10E9/L} See Below MG-Gastroen terology-[facility] 6 [facility] Work Phone: Comment on above: Reference Range: 1.2 0 - 7.70 Complete Blood Count + Differential 3.6 % 0.0 - 6.0 [facility]-Gastroen terology-[facility] 6 [facility] Work Phone: Complete Blood Count + Differential 0.4 % 0.0 - 0.9 [facility]astroen terology-[place] 6 [facility] Work Phone: Comment on above: Immature [...] threshold See Below MG-Gastroen terology-Rosendo [place] 6 [facility] Work Phone: Comment on above: Reference Range: 12. 0 - 16.0 MCHC (RBC) [Mass/Vol] 32.5 g/dL See Below [facility] I Work Phone: Comment on above: Reference Range: 32. 0 - 36.0 MCV (RBC) [Entitic vol] 92 fL 80 - 100 M G-Gastroen carlos alberto-[facility] 6 I Work Phone: Platelets (Bld) [#/Vol] 244 10*3/uL 150 - 450 MG-Gastroen carlos alberto-Rosendo [place] 6 I Work Phone: RBC (Bld) [#/Vol] 3.33 {x10E12/L} below low threshold See Below MG-Gastroen terology-Rosendo [place] 6 I Work Phone: Comment on above: Reference Range: 4.0 0 - 5.20 WBC (Bld) [#/Vol] 8.6 10*3/uL 4.4 - 11.3 MG-Gas troen terology-[facility] 6 I Work Phone: MAGNESIUMon 09-23-2021 Magnesium [Mass/Vol] 1.68 mg/dL Normal 1.60 - 2.40 [facility] Comment on above: Performed By: #### C BC #### [facility] [address] [place] [address] Magnesium, Serumon Magnesium [Mass/Vol] 1.68 mg/dL See [...] Practice Nurse) done by Ambrocio Izaguirre ([facility]) Discharge - Partial Reconciliation: 23-Sep-2021 13:21 by: Ambrocio Izaguirre ([facility]) Discharge - Partial Reconciliation: 24-Sep-2021 10:12 by: Ambrocio Izaguirre ([facility]) Discharge - Partial Reconciliation: 30-Sep-2021 14:12 by: Concetta Shi ([facility]) Discharge - Partial Reconciliation: 30-Sep-2021 14:14 by: Concetta Shi ([facility]) Discharge - Reconciliation: 30-Sep-2021 14:24 by: Concetta Shi ([facility]) Discharge - Reset to Incomplete: 02-Oct-2021 15:36 by: Ambrocio Izaguirre ([facility]) Discharge - Reconciliation: 02-Oct-2021 15:40 by: Ambrocio Izaguirre ([facility]) Discharge - Reset to Incomplete: 02-Oct-2021 15:57 by: Ambrocio Izaguirre ([facility]) Discharge - Reconciliation: 02-Oct-2021 15:58 by: Ambrocio Izaguirre ([facility]) Home Medications [facility] AT DISCHARGE DateReconciliation Comment/ Additional [...] required (more content not included)... Normal [facility] PATH REVIEW-IMMUNOHEMATOLOGY on 09-23-2021 PATH REV-IMMUNOHEMOTOL LETA Normal [facility] Comment on above: Result Comment: [...] PATIENT. Performed By: #### A FPA3 #### [facility] [address] [place] [address] RENAL FUNCTION PANELon 09-23 Albumin [Mass/Vol] 2.7 g/dL Low 3.4 - 5.0 [facility] Comment on above: Performed By: #### V FPA3 #### [facility] [address] [place] [address] Anion gap [Moles/Vol] 10 mmol/L Normal 10 - 20 [facility] Comment on above: Performed By: #### V FPA3 #### [facility] [address] [place] [address] Calcium [Mass/Vol] 7.9 mg/dL Low 8.6 - 10.6 [facility] Comment on above: Performed By: #### V FPA3 #### [facility] [address] [place] [address] Chloride [Moles/Vol] 108 mmol/L High 98 - 107 [facility] Comment on above: Performed By: #### V FPA3 #### [facility] [address] [place] [address] Creatinine [Mass/Vol] 0.39 mg/dL Low 0.50 - 1.05 [facility] Comment on above: Performed By: #### V FPA3 #### [facility] [address] [place] [address] eGFR FEMALE >90 Normal >90 [facility] Comment on above: Result Comment: CALC ULATIONS OF ESTIMATED GFR ARE PERFORMED USING THE 2020 CKD-EPI STUDY REFIT EQUATION WITHOUT THE RACE VARIABLE FOR THE IDMS-TRACEABLE CREATININE METHODS. https://jasn.asnjournals.org/content/early/ASN.460 7565702 Performed By: #### V FPA3 #### [facility] [address] [place] [address] Glucose [Mass/Vol] 87 mg/dL Normal 74 - 99 [facility] Comment on above: Performed By: #### V FPA3 #### [facility] [address] [place] [address] HCO3 (Bld) [Moles/Vol] 29 mmol/L Normal 21 - 32 [facility] Comment on above: Performed By: #### V FPA3 #### [facility] [address] [place] [address] Phosphate [Mass/Vol] 2.7 mg/dL Normal 2.5 - 4.9 [facility] Comment on above: Result Comment: The performance characteristics of phosphorus testing in heparinized plasma have been validated by the individual laboratory site where testing is performed. Testing on heparinized plasma is not approved by the FDA; however, such approval is not necessary. Performed By: #### V FPA3 #### [facility] [address] [place] [address] Potassium [Moles/Vol] 3.6 mmol/L Normal 3.5 - 5.3 [facility] Comment on above: Performed By: #### V FPA3 #### [facility] [address] [place] [address] Sodium [Moles/Vol] 143 mmol/L Normal 136 - 145 [facility] Comment on above: Performed By: #### V FPA3 #### [facility] [address] [place] [address] Urea nitrogen [Mass/Vol] 9 mg/dL Normal 6 - 23 [facility] Comment on above: Performed By: #### V FPA3 #### [facility] [address] [place] [address] Rehab Note-individual therap yon 09-23-2021 Rehab Note-individual therapy Rehab: Info: Disciplinephysical therapist Mode of Treatmentphysical therapy; individual therapy Time IN14:50 Time OUT15:29 Total Treatment [id number] Patient in ... at end of sessionbed, [...] sit to supine; rolling right Roll Left [place] (Bed Mobility)verbal cues; maximum assist (25% patient effort); 1 person assist Roll Right [place] (Bed Mobility)maximum assist (25% patient effort); verbal cues; 1 person assist Scoot/Bridge [place] (Bed Mobility)verbal cues; maximum assist (25% patient effort); 2 person assist; boost HOB Boaspy-ao-Jll [place] (Bed Mobility)verbal cues; maximum assist (25% patient effort); 1 person assist Ody-mp-Bwvetq [place] (Bed Mobility)set up; verbal cues; maximum assist (25% patient effort); 1 person assist Assistive Device (Bed Mobility)bed rails; draw sheet Transfer Assessment/Interventionss it to stand transfer; stand to sit transfer Sit-Stand [place] (Transfers)2 person assist; moderate assist (50% patient effort) Sit-Stand Assistive Device (Transfers)B arm-in-arm assist Stand-Sit [place] (Transfers)2 person assist; moderate assist (50% patient [...] 15:50 by Boone Broussard (PT) Normal [facility] Renal Function Panelon 09-23 Albumin [...] Phone: Renal Function Panel >90 >90 [facility] Work Phone: Comment on above: CALCULATIONS OF IVY MATED GFR ARE PERFORMED USING THE 2020 CKD-EPI STUDY REFIT EQUATION WITHOUT THE RACE VARIABLE FOR THE IDMS-TRACEABLE CREATININE METHODS.https://jasn.asnjournals.org/content/ /ASN.6094546539 ANTIBODY IDENT.on 09-22-2021 ANTIBODY IDENT. Anti-E Normal [facility] Comment on above: Performed By: #### V FPA3 #### [facility] [address] [place] [address] CBCon 09-22-2021 Erythrocyte distribution width (RBC) [Ratio] 13.2 % Normal 11.5 - 14.5 [facility] Comment on above: Performed By: #### V FPA3 #### [facility] [address] [place] [address] Hematocrit (Bld) [Volume fraction] 30.6 % Low 36.0 - 46.0 [facility] Comment on above: Performed By: #### V FPA3 #### [facility] [address] [place] [address] Hemoglobin (Bld) [Mass/Vol] 10.2 g/dL Low 12.0 - 16.0 [facility] Comment on above: Performed By: #### V FPA3 #### [facility] [address] [place] [address] MCHC (RBC) [Mass/Vol] 33.3 g/dL Normal 32.0 - 36.0 [facility] Comment on above: Performed By: #### V FPA3 #### [facility] [address] [place] [address] MCV (RBC) [Entitic vol] 91 fL Normal 80 - 100 [facility] Comment on above: Performed By: #### V FPA3 #### [facility] [address] [place] [address] NUCLEATED RBC 0.0 /100 WBC Normal 0.0-0.0 [facility] Comment on above: Performed By: #### V FPA3 #### [facility] [address] [place] [address] Platelets (Bld) [#/Vol] 215 10*3/uL Normal 150 - 450 [facility] Comment on above: Performed By: #### V FPA3 #### [facility] [address] [place] [address] RBC 3.37 x10E12/L Low 4.00 - 5.20 [facility] Comment on above: Performed By: #### V FPA3 #### [facility] [address] [place] [address] WBC (Bld) [#/Vol] 9.6 10*3/uL Normal 4.4 - 11.3 [facility] Comment on above: Performed By: #### V FPA3 #### [facility] [address] [place] [address] CBC AND DIFFERENTIALon 09-22 % AUTOMATED IMMATURE GRAN 0.4 % Normal 0.0 - 0.9 [facility] Comment on above: Result Comment: Jaleesa ture Granulocyte Count (IG) includes promyelocytes, myelocytes and metamyelocytes but does not include bands. Percent differential counts (%) should be interpreted in the context of the absolute cell counts (cells/L). Performed By: #### C BCDF ####[id number] [place] [address] Basophils (Bld) [#/Vol] 0.02 10*3/uL Normal 0.00 - 0.10 [facility] Comment on above: Performed By: #### C BCDF ####[id number] [place] [address] Basophils/100 WBC (Bld) 0.2 % Normal 0.0 - 2.0 [facility] Comment on above: Performed By: #### C BCDF ####[id number] [place] [address] Eosinophils (Bld) [#/Vol] 0.04 10*3/uL Normal 0.00 - 0.70 [facility] Comment on above: Performed By: #### C BCDF ####[id number] [place] [address] Eosinophils/100 WBC (Bld) 0.4 % Normal 0.0 - 6.0 [facility] Comment on above: Performed By: #### C BCDF ####[id number] [place] [address] Erythrocyte distribution width (RBC) [Ratio] 13.2 % Normal 11.5 - 14.5 [facility] Comment on above: Performed By: #### C BCDF ####[id number] [place] [address] Hematocrit (Bld) [Volume fraction] 30.6 % Low 36.0 - 46.0 [facility] Comment on above: Performed By: #### C BCDF ####[id number] [place] [address] Hemoglobin (Bld) [Mass/Vol] 10.3 g/dL Low 12.0 - 16.0 [facility] Comment on above: Performed By: #### C BCDF ####[id number] [place] [address] Lymphocytes (Bld) [#/Vol] 2.19 10*3/uL Normal 1.20 - 4.80 [facility] Comment on above: Performed By: #### C BCDF ####[id number] [place] [address] Lymphocytes/100 WBC (Bld) 19.9 % Normal 13.0 - 44.0 [facility] Comment on above: Performed By: #### C BCDF ####[id number] [place] [address] MCHC (RBC) [Mass/Vol] 33.7 g/dL Normal 32.0 - 36.0 [facility] Comment on above: Performed By: #### C BCDF ####[id number] [place] [address] MCV (RBC) [Entitic vol] 90 fL Normal 80 - 100 [facility] Comment on above: Performed By: #### C BCDF ####[id number] [place] [address] Monocytes (Bld) [#/Vol] 0.71 10*3/uL Normal 0.10 - 1.00 [facility] Comment on above: Performed By: #### C BCDF ####[id number] [place] [address] Monocytes/100 WBC (Bld) 6.5 % Normal 2.0 - 10.0 [facility] Comment on above: Performed By: #### C BCDF ####[id number] [place] [address] Neutrophils (Bld) [#/Vol] 7.98 10*3/uL High 1.20 - 7.70 [facility] Comment on above: Performed By: #### C BCDF ####[id number] [place] [address] Neutrophils/100 WBC (Bld) 72.6 % Normal 40.0 - 80.0 [facility] Comment on above: Performed By: #### C BCDF ####[id number] [place] [address] NUCLEATED RBC 0.0 /100 WBC Normal 0.0-0.0 [facility] Comment on above: Performed By: #### C BCDF ####[id number] [place] [address] Platelets (Bld) [#/Vol] 242 10*3/uL Normal 150 - 450 [facility] Comment on above: Performed By: #### C BCDF ####[id number] [place] [address] RBC 3.39 x10E12/L Low 4.00 - 5.20 [facility] Comment on above: Performed By: #### C BCDF ####[id number] [place] [address] WBC (Bld) [#/Vol] 11.0 10*3/uL Normal 4.4 - 11.3 [facility] Comment on above: Performed By: #### C BCDF ####[id number] [place] [address] Complete Blood Count + Diffe vidya 09-22-2021 [...] with at bedside. She is currently on COMPUTER ANIMATOR for pain, and reports being tired this [...] this time. Objective: Objective Information: T PRBPSpO2 [id number]/5792% Date/Time09/22 0:001/18 8:001/18 8:001/18 8:001/18 8:00 Range(36.3C [...] Fair. Medications: Continuous Medications ------- 1. HYDROmorphone COMPUTER ANIMATOR 25 mg/ NaCL 0.9% 50 mL: 2.6 mg/hr IV COMPUTER ANIMATOR 2. Sodium Chloride 0.9% Infusion: 1000 mL [...] Suboxone (more content not included)... Normal [facility] Daily Progress Note-Nuha stearns 09-22-2021 Daily Progress Note-Neurosurgery Service: Neurosurgery Subjective Data: MORALES LEE is a 46 year old Female who is Hospital Day # 8 and POD #1 for posterior L4-L5 decompression;posterior L4-L5 arthrodesis. Objective Data: Objective Information: T PRBPSpO2 [id number]/5895% Date/Time09/22 0:00118 0:00118 0:00118 0:00118 0:00 Range(36.2C - 36.8C ) (82 - 109 ) (12 - 20 ) (85 - 132 )/ (49 - 89 ) (94% - 100% ) As of 21-Sep-2021 17:00:00, patient is on 4 L/min of oxygen via nasal cannula. Pain reported at 09/21 16:33: 5 = Moderate ---- Intake and Output ----- Mn/Dy/Year TimeIntakeOutputNet Sep 20, 2021 10:00 [id number] Sep 20, 2021 6:00 [id number] The Intake and Output Totals for the last 24 hours are: IntakeOutputNet [id number] Physical Exam by System: Neurological: A&Ox3 RUE [...] Chronic pain recs- intra-op ketamine, meloxicam post-op, COMPUTER ANIMATOR until good PT eval, Suboxone as OP COWS psych recs alvares for retention SCD's, [facility] Attestation: Note Completion: I am a: Resident/Fellow [...] the note. I personally evaluated the patient [id number] Electronic Signatures: Fidel Maciel (Resident)) (Signed 22-Sep-2021 00:35) Authored: Service, Subjective Data, Objective Data, Assessment and Plan, Note Completion Lex Frederick) (Signed 22-Sep-2021 10:31) Authored: Note Completion Co-Signer: Service, Subjective Data, Objective Data, Assessment and Plan, Note Completion Last Updated: 22-Sep-2021 10:31 by Lex Frederick) [facility] Discharge [id number] Discharge Profile2 Discharge Orders: Anticipated Discharge Date: Anticipated Discharge [id number] Problem List: Additional Dx: Spinal stenosis of [...] Please call your Neurosurgeon's office (Dr. Frederick [phone]) if you have any questions. -If you [...] Acetamin (more content not included)... Normal [facility] LACTATEon 09-22-2021 Lactate [Moles/Vol] 0.8 mmol/L Normal 0.4 - 2.0 [facility] Comment on above: Result Comment: Trina puncture immediately after or during the administration of Metamizole may lead to falsely low results. Testing should be performed immediately prior to Metamizole dosing. Performed By: #### C BC #### [facility] [address] [place] [address] Laboratory - Hematology and Cell countson 09-22-2021 [...] threshold See Below [facility]-Gastroen terology-[place] 6 [facility] Work Phone: Comment on above: Reference Range: 12. 0 - 16.0 MCHC (RBC) [Mass/Vol] 33.3 g/dL See Below [facility] I Work Phone: Comment on above: Reference Range: 32. 0 - 36.0 MCV (RBC) [Entitic vol] 91 fL 80 - 100 M G-Gastroen terology-[facility] 6 [facility] Work Phone: Platelets (Bld) [#/Vol] 215 10*3/uL 150 - 450 [facility]-Gastroen terology-[facility]endo [facility] 6 [facility] Work Phone: RBC (Bld) [#/Vol] 3.37 {x10E12/L} below low threshold See Below [facility]-Gastroen terology-[facility] 6 [facility] Work Phone: Comment on above: Reference Range: 4.0 0 - 5.20 WBC (Bld) [#/Vol] 9.6 10*3/uL 4.4 - 11.3 MG-Gas troen terology-[facility] Work Phone: Lactate, Levelon 09-22-2021 Lactate [Moles/Vol] 0.8 mmol/L 0.4 - 2.0 MG-Ga stroen terology-[facility] Work Phone: Comment on above: Venipuncture [...] safety. Time IN10:50 Time OUT11:40 Total Treatment [id number] Patient in ... at end of sessionbed, 3 railings up; alarm on Communicated with ... at end of sessionbedside nurse Patient Effortgood Symptoms Noted During/After Treatmentfatigue; increased pain Patient Profile Reviewedyes Onset of Illness/Injury or Date of [id number] Reason for Referral-09/18/21: s/p exploration of spinal [...] EOB sitting. Pertinent History of Current Functional [id number] y/o with hx of HTN, C6-7 ACDF, [...] TubesIV; triple lumen; telemetry; urethral catheter indwelling; COMPUTER ANIMATOR pump, DAVOL drain, wound vac O2 Deliverynasal cannula; 4L Pre Treatment Patient Positionsupine Pre Treatment Blood Pressure Meywrmul34 mmHg Pre Treatment Diastolic (mm Hg)46 mmHg Pre Treatment Heart Rate (beats/min)67 Pre Treatment Respiratory Rate (breaths/min)19 Pre Treatment SpO2 (%)96 % Pre Treatment Oxygen Deliverysupplemental O2 Pre Treatment CommentsMAP 56 During Treatment Patient Positionsitting During Treatment Blood Pressure Wqgupuxs35 mmHg During Treatment Diastolic (mm Hg)77 mmHg [...] to sit; sit to supine Roll Left [place] (Bed Mobility)set up; verbal cues; 2 person assist; Pt required assist to bend BLE at (more content not included)... Normal [facility] PATH REVIEW-IMMUNOHEMATOLOGY on 09-22-2021 PATH REV-IMMUNOHEMOTOL ZURDO Normal [facility] Comment on above: Result Comment: [...] THIS PATIENT. Performed By: #### C #### [facility] [address] [place] [address] PT Evaluation [id number] t - co-treatment with OT to [facility] 09-22-2021 PT Evaluation [id number] - co-treatment with OT to [facility] Rehab: Info: Mode of Treatmentphysical therapy; co-treatment; co-treatment with OT to maximize safety, mobility and ADL participation Time IN10:50 Time OUT11:40 Total Treatment [id number] Patient in ... at end of sessionbed, 3 railings up; alarm on Communicated with ... at end of sessionbedside nurse Patient Effortgood Symptoms Noted During/After Treatmentfatigue; increased pain Patient Profile Reviewedyes Onset of Illness/Injury or Date of [id number] Reason for Referral-09/18/21: s/p exploration of spinal [...] TubesIV; triple lumen; telemetry; urethral catheter indwelling; COMPUTER ANIMATOR pump, DAVOL drain, wound vac O2 Deliverynasal cannula; 4L Pre Treatment Patient Positionsupine Pre Treatment Blood Pressure Hrjquage21 mmHg Pre Treatment Diastolic (mm Hg)46 mmHg Pre Treatment Heart Rate (beats/min)67 Pre Treatment SpO2 (%)96 % Pre Treatment Oxygen Deliverysupplemental O2 During Treatment Patient Positionsitting During Treatment Blood Pressure Dyupjozq27 mmHg During Treatment Diastolic (mm Hg)77 mmHg [...] sit to supine; rolling right Roll Left [place] (Bed Mobility)verbal cues; 2 person assist; Pt required assist to bend BLE at knees and to initiate turn at shoulders and hips, verbal cues for grasp on bed rail, technique, direction follow, and encouragement.; maximum assist (25% patient effort) Roll Right [place] (Bed Mobility)2 person assist; maximum assist (25% patient effort); verbal cues Scoot/Bridge [place] (Bed Mobility)verbal cues; maximum assist (25% patient effort); 2 person assist; boost HOB Yaoyhj-dl-Omn [place] (Bed Mobility)verbal cues; maximum assist (25% patient effort); 1 person assist Moy-pm-Fvtaik [place] (Bed Mobility)set up; verbal cues; maximum assist (25% patient effort); 1 person assist Assistive Device (Bed Mobility)bed rails; draw sheet Impairments Impacting Function (Mobility)balance; cognition; endurance/activity tolerance; pain; strength; postural/trunk control; motor control Motor: Sitting, Static (Balance)SBA Sitting, Dynamic (Balance)CGA Qst-xj-Bzqjk (Balance)MADELIN this visit. Pt hypotensive Sensory: Pre-Treatment Pain Rating7/10 Post-Treatment Pain Rating7/10 Comment, Pre/Post Treatment PainPt reported pain throughout buttocks and back, utilized COMPUTER ANIMATOR pump as needed. Pain LimitationFunctional mobility limited due pain; ADLs/IADLs limited due to pain; Participation limited by pain; RN or team was notified of limitations due to p (more content not included)... Normal [facility] RENAL FUNCTION PANELon 09-22 Albumin [Mass/Vol] 2.7 g/dL Low 3.4 - 5.0 [facility] Comment on above: Performed By: #### C BC #### [facility] [address] [place] [address] Anion gap [Moles/Vol] 10 mmol/L Normal 10 - 20 [facility] Comment on above: Performed By: #### C BC #### [facility] [address] [place] [address] Calcium [Mass/Vol] 7.8 mg/dL Low 8.6 - 10.6 [facility] Comment on above: Performed By: #### C BC #### [facility] [address] [place] [address] Chloride [Moles/Vol] 105 mmol/L Normal 98 - 107 [facility] Comment on above: Performed By: #### C BC #### [facility] [address] [place] [address] Creatinine [Mass/Vol] 0.49 mg/dL Low 0.50 - 1.05 [facility] Comment on above: Performed By: #### C BC #### [place] [address] [place] [address] eGFR FEMALE >90 Normal >90 [facility] Comment on above: Result Comment: CALC ULATIONS OF ESTIMATED GFR ARE PERFORMED USING THE 2020 CKD-EPI STUDY REFIT EQUATION WITHOUT THE RACE VARIABLE FOR THE IDMS-TRACEABLE CREATININE METHODS. https://jasn.asnjournals.org/content/early//ASN.086 3459133 Performed By: #### C BC #### [facility] [address] [place] [address] Glucose [Mass/Vol] 93 mg/dL Normal 74 - 99 [facility] Comment on above: Performed By: #### C BC #### [facility] [address] [place] [address] HCO3 (Bld) [Moles/Vol] 29 mmol/L Normal 21 - 32 [facility] Comment on above: Performed By: #### C BC #### [facility] [address] [place] [address] Phosphate [Mass/Vol] 2.4 mg/dL Low 2.5 - 4.9 [facility] Comment on above: Result Comment: The performance characteristics of phosphorus testing in heparinized plasma have been validated by the individual laboratory site where testing is performed. Testing on heparinized plasma is not approved by the FDA; however, such approval is not necessary. Performed By: #### C BC #### [facility] [address] [place] [address] Potassium [Moles/Vol] 4.3 mmol/L Normal 3.5 - 5.3 [facility] Comment on above: Performed By: #### C BC #### [facility] [address] [place] [address] Sodium [Moles/Vol] 140 mmol/L Normal 136 - 145 [facility] Comment on above: Performed By: #### C BC #### [facility] [address] [place] [address] Urea nitrogen [Mass/Vol] 9 mg/dL Normal 6 - 23 [facility] Comment on above: Performed By: #### C BC #### [facility] [address] [place] [address] Renal Function Panelon 09-22 Albumin BCP dye [...] - 5.3 [facility]astro[facility] [facility] Work Phone: Sodium [Moles/Vol] 140 mmol/L 136 - 145 [facility]Gas troen terology-[place] [facility] I Work Phone: Urea nitrogen [Mass/Vol] 9 mg/dL 6 - 23 [facility] [facility] [facility] I Work Phone: Renal Function Panel >90 >90 [facility]-G astroen terology-[place] [facility] Work Phone: Comment on above: CALCULATIONS OF IVY MATED GFR ARE PERFORMED USING THE 2020 CKD-EPI STUDY REFIT EQUATION WITHOUT THE RACE VARIABLE FOR THE IDMS-TRACEABLE CREATININE METHODS.https://jasn.asnjournals.org/content/ /ASN.8706867761 UA MICROSCOPICon 09-22-2021 RBC 6 /HPF Abnormal 0-5 [facility] Comment on above: Performed By: #### C BC #### [facility] [address] [place] [address] SQUAMOUS EPITH. CELLS 1 /HPF Normal [facility] Comment on above: Performed By: #### C BC #### [facility] [address] [place] [address] WBC 8 /HPF Abnormal 0-5 [facility] Comment on above: Performed By: #### C BC #### [facility] [address] [place] [address] URINALYSIS WITH CULTURE IF I NDICATEDon 09-22-2021 Appearance (U) CLEAR Normal CLEAR [facility] Comment on above: Performed By: #### U ARFX ####[id number] [place] [address] Bilirubin Ql (U) Negative Normal NEGATIVE [facility] Comment on above: Performed By: #### U ARFX ####[id number] [place] [address] Color (U) MIRANDA Normal STRAW,YELL OW [facility] Comment on above: Performed By: #### U ARFX ####[id number] [place] [address] Glucose Ql (U) Negative Normal NEGATIVE [facility] Comment on above: Performed By: #### U ARFX ####[id number] [place] [address] Hemoglobin Ql (U) Negative Normal NEGATIVE [facility] Comment on above: Performed By: #### U ARFX ####[id number] [place] [address] Ketones Ql (U) 20 (1+) Abnormal NEGATIVE [facility] Comment on above: Performed By: #### U ARFX ####[id number] [place] [address] Leukocyte esterase Test strip Ql (U) Negative Normal NEGATIVE [facility] Comment on above: Performed By: #### U ARFX ####[id number] [place] [address] Nitrite Ql (U) Negative Normal NEGATIVE [facility] Comment on above: Performed By: #### U ARFX ####[id number] [place] [address] pH (U) 5.0 [pH] Normal 5.0 - 8.0 [facility] Comment on above: Performed By: #### U ARFX ####[id number] [place] [address] Protein Ql (U) 30 (1+) Abnormal NEGATIVE [facility] Comment on above: Performed By: #### U ARFX ####[id number] [place] [address] Specific gravity (U) [Rel density] 1.040 High 1.005 - 1.035 [facility] Comment on above: Performed By: #### U ARFX ####[id number] [place] [address] Urobilinogen (U) [Mass/Vol] 2.0 mg/dL High 0.0 - 1.9 [facility] Comment on above: Result Comment: [...] positive urobilinogen. Performed By: #### U ARFX ####[id number] [place] [address] Lab Specimen Source Normal [facility] Comment on above: Performed By: #### U ARFX ####[id number] [place] [address] Performed By: #### C BC #### [facility] [address] [place] [address] Color (U) MIRANDA See Below [facility]-Gastroen terology-[facility] [...] CULTURE,BACTERIALon URINE CULTURE,BACTERIAL PATIENT: Fay LEE LOCATION: [place] [address] BILL#: [id number] : 71 AGE: SEX: F ORDERED BY: AMBROCIO IZAGUIRRE SOURCE: URINE COLLECTED: 09/22/21 12:59 ANTIBIOTICS AT [facility].: RECEIVED : 09/22/21 14:59 SITE: R E S U L T S URINE CULTURE,BACTERIAL FINAL 09/23/21 09:04 NO SIGNIFICANT GROWTH. Normal [facility] Comment on above: Performed By: #### C BC #### [facility] [address] [place] [address] Urinalysis, Microscopicon Urinalysis, Microscopic 1 {/HPF} M [facility] [facility] I Work Phone: Urinalysis, Microscopic 6 {/HPF} Abnormal 0-5 [facility] [facility] [facility] I Work Phone: Urinalysis, Microscopic 8 {/HPF} Abnormal 0-5 [facility] I Work Phone: Comment on above: SOURCE: CBCon 09-21-2021 Erythrocyte distribution width (RBC) [Ratio] 13.1 % Normal 11.5 - 14.5 [facility] Comment on above: Performed By: #### R ENAL #### [facility] [address] [place] [address] Hematocrit (Bld) [Volume fraction] 34.5 % Low 36.0 - 46.0 [facility] Comment on above: Performed By: #### R ENAL #### [facility] [address] [place] [address] Hemoglobin (Bld) [Mass/Vol] 11.4 g/dL Low 12.0 - 16.0 [facility] Comment on above: Performed By: #### R ENAL #### [facility] [address] [place] [address] MCHC (RBC) [Mass/Vol] 33.0 g/dL Normal 32.0 - 36.0 [facility] Comment on above: Performed By: #### R ENAL #### [facility] [address] [place] [address] MCV (RBC) [Entitic vol] 91 fL Normal 80 - 100 [facility] Comment on above: Performed By: #### R ENAL #### [facility] [address] [place] [address] NUCLEATED RBC 0.0 /100 WBC Normal 0.0-0.0 [facility] Comment on above: Performed By: #### R ENAL #### [facility] [address] [place] [address] Platelets (Bld) [#/Vol] 269 10*3/uL Normal 150 - 450 [facility] Comment on above: Performed By: #### R ENAL #### [facility] [address] [place] [address] RBC 3.81 x10E12/L Low 4.00 - 5.20 [facility] Comment on above: Performed By: #### R ENAL #### [facility] [address] [place] [address] WBC (Bld) [#/Vol] 14.6 10*3/uL High 4.4 - 11.3 [facility] Comment on above: Performed By: #### R ENAL #### [facility] [address] [place] [address] Erythrocyte distribution width (RBC) [Ratio] 13.2 % Normal 11.5 - 14.5 [facility] Comment on above: Performed By: #### R ENAL #### [facility] [address] [place] [address] Hematocrit (Bld) [Volume fraction] 35.8 % Low 36.0 - 46.0 [facility] Comment on above: Performed By: #### R ENAL #### [facility] [address] [place] [address] Hemoglobin (Bld) [Mass/Vol] 11.9 g/dL Low 12.0 - 16.0 [facility] Comment on above: Performed By: #### R ENAL #### [facility] [address] [place] [address] MCHC (RBC) [Mass/Vol] 33.2 g/dL Normal 32.0 - 36.0 [facility] Comment on above: Performed By: #### R ENAL #### [facility] [address] [place] [address] MCV (RBC) [Entitic vol] 91 fL Normal 80 - 100 [facility] Comment on above: Performed By: #### R ENAL #### [facility] [address] [place] [address] NUCLEATED RBC 0.0 /100 WBC Normal 0.0-0.0 [facility] Comment on above: Performed By: #### R ENAL #### [facility] [address] [place] [address] Platelets (Bld) [#/Vol] 215 10*3/uL Normal 150 - 450 [facility] Comment on above: Performed By: #### R ENAL #### [facility] [address] [place] [address] RBC 3.93 x10E12/L Low 4.00 - 5.20 [facility] Comment on above: Performed By: #### R ENAL #### [place] [address] [place] [address] WBC (Bld) [#/Vol] 14.8 10*3/uL High 4.4 - 11.3 [facility] Comment on above: Performed By: #### R ENAL #### [facility] [address] [place] [address] Daily Progress Note-Neurosjudy stearns 09-21-2021 Daily Progress Note-Neurosurgery Service: Neurosurgery Subjective Data: MORALES LEE is a 46 year old Female who is Hospital Day # 7 and POD #3 for 1. Exploration of spinal fusion;2. Reduction of L4/5 dislocation;2. L5-pelvis instrumented fusion with posterolateral arthrodesis;4. Extension of instrumentation with multiple kwame construct and side connectors. 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 Normal [facility] Laboratory - Blood bankon ABO [...] lumbar spine September 18, 2021 ACCESSION NUMBER(S): [id number]; [id number] ORDERING CLINICIAN: DEVANTE STARKS TECHNIQUE: Sagittal axial [...] signed by: NATALIA WALL DO Normal [facility] NR MRI T-SPINE WOon 09-21-19 NR MRI T-SPINE WO Patient Name: MORALES LEE STUDY: MRI T-SPINE WO; MRI L-SPINE WO; 09/20/2021 10:40 pm; 09/20/2021 10:42 pm INDICATION: postop foot weakness, Lie Flat: Yes, Pre Med: No . COMPARISON: MRI December 24, [address] of the lumbar spine September 18, 2021 ACCESSION NUMBER(S): [id number]; [id number] ORDERING CLINICIAN: DEVANTE STARKS TECHNIQUE: Sagittal axial [...] signed by: NATALIA WALL DO Normal [facility] No Panel Informationon 09-21 0.0 [...] Preop Checklist Preop Checklist: Preop Checklist: Arrival [id number] Arrival Time11:00 Procedure Typere-exploration of spine Temperature C36.2 degrees C Temperature F97.1 degrees F Heart Rate91 beats per minute Respiratory Rate18 breath per minute Blood Pressure Bzrinpsq058 mm/Hg Blood Pressure Gyeidcvrg04 mm/Hg COVID 19 Results in Last 7 [...] 11:17 by Linh Buchanan (RN) Normal [facility] REQUEST-LEUKOREDUCED RED ANJU LSon 09-21-2021 REQUEST-LEUKOREDUCED RED CELLS ORDER RECD Normal [facility] Comment on above: Performed By: #### A FPA3 #### [facility] [address] [place] [address] TYPE + SCREENon 09-21-2021 ABO TYPE O Normal [facility] Comment on above: Performed By: #### A FPA3 #### [facility] [address] [place] [address] RH TYPE Positive Normal [facility] Comment on above: Performed By: #### A FPA3 #### [facility] [address] [place] [address] ABO TYPE Canceled Normal [facility] Comment on above: Order Comment: VENECIA ESPINO, 09/21/2021 05:08TEST TYPE + SCREEN WAS CANCELLED, 09/21/2021 05:06 NO PHLEB ID ON TUBE. Result Comment: EULA ESPINO, 09/21/2021 05:08 Performed By: #### A FPA3 #### [facility] [address] [place] [address] RH TYPE Canceled Normal [facility] Comment on above: Order Comment: VENECIA ESPINO, 09/21/2021 05:08TEST TYPE + SCREEN WAS CANCELLED, 09/21/2021 05:06 NO PHLEB ID ON TUBE. Result Comment: CALL ED RN AFSANEH ESPINO, 09/21/2021 05:08 Performed By: #### A FPA3 #### [facility] [address] [place] [address] CBCon 09-20-2021 Erythrocyte distribution width (RBC) [Ratio] 13.2 % Normal 11.5 - 14.5 [facility] Comment on above: Performed By: #### C BC #### [facility] [address] [place] [address] Hematocrit (Bld) [Volume fraction] 30.8 % Low 36.0 - 46.0 [facility] Comment on above: Performed By: #### C BC #### [facility] [address] [place] [address] Hemoglobin (Bld) [Mass/Vol] 9.8 g/dL Low 12.0 - 16.0 [facility] Comment on above: Performed By: #### C BC #### [facility] [address] [place] [address] MCHC (RBC) [Mass/Vol] 31.8 g/dL Low 32.0 - 36.0 [facility] Comment on above: Performed By: #### C BC #### [facility] [address] [place] [address] MCV (RBC) [Entitic vol] 93 fL Normal 80 - 100 [facility] Comment on above: Performed By: #### C BC #### [facility] [address] [place] [address] NUCLEATED RBC 0.0 /100 WBC Normal 0.0-0.0 [facility] Comment on above: Performed By: #### C BC #### [facility] [address] [place] [address] Platelets (Bld) [#/Vol] 224 10*3/uL Normal 150 - 450 [facility] Comment on above: Performed By: #### C BC #### [facility] [address] [place] [address] RBC 3.32 x10E12/L Low 4.00 - 5.20 [facility] Comment on above: Performed By: #### C BC #### [facility] [address] [place] [address] WBC (Bld) [#/Vol] 12.1 10*3/uL High 4.4 - 11.3 [facility] Comment on above: Performed By: #### C BC #### [facility] [address] [place] [address] Daily Progress Note-Neurosjudy stearns 09-20-2021 Daily Progress Note-Neurosurgery Service: Neurosurgery Subjective Data: MORALES LEE is a 46 year old Female who is Hospital Day # 6 and POD #2 for 1. Exploration of spinal fusion;2. Reduction of L4/5 dislocation;2. L5-pelvis instrumented fusion with posterolateral arthrodesis;4. Extension of instrumentation with multiple kwame construct and side connectors. Objective Data: Objective Information: T PRBPSpO2 [id number]/5095% Date/Time09/19 16: 1: 16: 1:341 1:34 Range(36.7C - 36.7C ) (84 - 110 ) (18 - 18 ) (82 - 118 )/ (50 - 97 ) (94% - 97% ) As of 19-Sep-2021 08:00:00, patient is on 2 L/min of oxygen via nasal cannula. 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, Suboxone as OP [...] 21-Sep-2021 11:28 by Perez Carlisle) Normal [facility] Laboratory - Hematology and Cell [...] 12:25 by Carole Carlos (OT) Normal [facility] PT Evaluation v2-attemptedon 09-20-2021 PT Evaluation v2-attempted Rehab: Info: Mode of Treatmentattempted Time IN12:00 Evaluation Not PerformedPer RN pt not appropriate for therapy, pt continues to have low BP and plan to receive blood, will hold and reattempt as appropriate Electronic Signatures: Kaykay Yoo (PT) (Signed 20-Sep-2021 12:42) Authored: Info Last Updated: 20-Sep-2021 12:42 by Kaykay Yoo (PT) Normal [facility] REQUEST-LEUKOREDUCED RED ANJU LSon 09-20-2021 REQUEST-LEUKOREDUCED RED CELLS ORDER RECD Normal [facility] Comment on above: Performed By: #### R ENAL #### [facility] [address] [place] [address] CBCon 09-19-2021 Erythrocyte distribution width (RBC) [Ratio] 12.4 % Normal 11.5 - 14.5 [facility] Comment on above: Performed By: #### R ENAL #### [facility] [address] [place] [address] Hematocrit (Bld) [Volume fraction] 38.3 % Normal 36.0 - 46.0 [facility] Comment on above: Performed By: #### R ENAL #### [facility] [address] [place] [address] Hemoglobin (Bld) [Mass/Vol] 13.4 g/dL Normal 12.0 - 16.0 [facility] Comment on above: Performed By: #### R ENAL #### [facility] [address] [place] [address] MCHC (RBC) [Mass/Vol] 35.0 g/dL Normal 32.0 - 36.0 [facility] Comment on above: Performed By: #### R ENAL #### [facility] [address] [place] [address] MCV (RBC) [Entitic vol] 85 fL Normal 80 - 100 [facility] Comment on above: Performed By: #### R ENAL #### [facility] [address] [place] [address] NUCLEATED RBC 0.0 /100 WBC Normal 0.0-0.0 [facility] Comment on above: Performed By: #### R ENAL #### [facility] [address] [place] [address] Platelets (Bld) [#/Vol] 326 10*3/uL Normal 150 - 450 [facility] Comment on above: Performed By: #### R ENAL #### [facility] [address] [place] [address] RBC 4.51 x10E12/L Normal 4.00 - 5.20 [facility] Comment on above: Performed By: #### R ENAL #### [facility] [address] [place] [address] WBC (Bld) [#/Vol] 20.5 10*3/uL High 4.4 - 11.3 [facility] Comment on above: Performed By: #### R ENAL #### [facility] [address] [place] [address] CBC AND DIFFERENTIALon 09-19 % AUTOMATED IMMATURE GRAN 0.6 % Normal 0.0 - 0.9 [facility] Comment on above: Result Comment: Jaleesa ture Granulocyte Count (IG) includes promyelocytes, myelocytes and metamyelocytes but does not include bands. Percent differential counts (%) should be interpreted in the context of the absolute cell counts (cells/L). Performed By: #### V FPA3 #### [facility] [address] [place] [address] Basophils (Bld) [#/Vol] 0.03 10*3/uL Normal 0.00 - 0.10 [facility] Comment on above: Performed By: #### V FPA3 #### [facility] [address] [place] [address] Basophils/100 WBC (Bld) 0.1 % Normal 0.0 - 2.0 [facility] Comment on above: Performed By: #### V FPA3 #### [facility] [address] [place] [address] Eosinophils (Bld) [#/Vol] 0.01 10*3/uL Normal 0.00 - 0.70 [facility] Comment on above: Performed By: #### V FPA3 #### [facility] [address] [place] [address] Eosinophils/100 WBC (Bld) 0.0 % Normal 0.0 - 6.0 [facility] Comment on above: Performed By: #### V FPA3 #### [facility] [address] [place] [address] Erythrocyte distribution width (RBC) [Ratio] 12.9 % Normal 11.5 - 14.5 [facility] Comment on above: Performed By: #### V FPA3 #### [facility] [address] [place] [address] Hematocrit (Bld) [Volume fraction] 38.3 % Normal 36.0 - 46.0 [facility] Comment on above: Performed By: #### V FPA3 #### [facility] [address] [place] [address] Hemoglobin (Bld) [Mass/Vol] 12.7 g/dL Normal 12.0 - 16.0 [facility] Comment on above: Performed By: #### V FPA3 #### [facility] [address] [place] [address] Lymphocytes (Bld) [#/Vol] 2.89 10*3/uL Normal 1.20 - 4.80 [facility] Comment on above: Performed By: #### V FPA3 #### [facility] [address] [place] [address] Lymphocytes/100 WBC (Bld) 13.5 % Normal 13.0 - 44.0 [facility] Comment on above: Performed By: #### V FPA3 #### [facility] [address] [place] [address] MCHC (RBC) [Mass/Vol] 33.2 g/dL Normal 32.0 - 36.0 [facility] Comment on above: Performed By: #### V FPA3 #### [facility] [address] [place] [address] MCV (RBC) [Entitic vol] 89 fL Normal 80 - 100 [facility] Comment on above: Performed By: #### V FPA3 #### [facility] [address] [place] [address] Monocytes (Bld) [#/Vol] 1.23 10*3/uL High 0.10 - 1.00 [facility] Comment on above: Performed By: #### V FPA3 #### [facility] [address] [place] [address] Monocytes/100 WBC (Bld) 5.7 % Normal 2.0 - 10.0 [facility] Comment on above: Performed By: #### V FPA3 #### [facility] [address] [place] [address] Neutrophils (Bld) [#/Vol] 17.16 10*3/uL High 1.20 - 7.70 [facility] Comment on above: Performed By: #### V FPA3 #### [facility] [address] [place] [address] Neutrophils/100 WBC (Bld) 80.1 % Normal 40.0 - 80.0 [facility] Comment on above: Performed By: #### V FPA3 #### [facility] [address] [place] [address] NUCLEATED RBC 0.0 /100 WBC Normal 0.0-0.0 [facility] Comment on above: Performed By: #### V FPA3 #### [facility] [address] [place] [address] Platelets (Bld) [#/Vol] 401 10*3/uL Normal 150 - 450 [facility] Comment on above: Performed By: #### V FPA3 #### [facility] [address] [place] [address] RBC 4.28 x10E12/L Normal 4.00 - 5.20 [facility] Comment on above: Performed By: #### V FPA3 #### [facility] [address] [place] [address] WBC (Bld) [#/Vol] 21.5 10*3/uL High 4.4 - 11.3 [facility] Comment on above: Performed By: #### V FPA3 #### [facility] [address] [place] [address] COAGULATION SCREENon 022 aPTT Coag (Bld) [Time] 29 s Normal 26 - 39 [facility] Comment on above: Result Comment: Note new reference range as of 08/04/2021 at 10:00am. Performed By: #### R ENAL #### [facility] [address] [place] [address] PT Coag (PPP) [Time] 11.5 s Normal 9.8 - 13.4 [facility] Comment on above: Result Comment: Note new reference range as of 08/04/2021 at 10:00am. Performed By: #### R ENAL #### [facility] [address] [place] [address] PT, INR 1.0 Normal 0.9 - 1.1 [facility] Comment on above: Performed By: #### R ENAL #### [facility] [address] [place] [address] Complete Blood Count + Diffe vidya 09-19-2021 [...] 0.6 % 0.0 - 0.9 [facility] I Work Phone: [...] connectors. Objective Data: Objective Information: T PRBPSpO2 [id number]/8596% Date/Time09/18 17: 17: 17: 17: 17:40 Range(36.4C [...] ----- Mn/Dy/Year TimeIntakeOutputNet Sep 17, 2021 10:00 [id number] The Intake and Output Totals for the last 24 hours are: IntakeOutputNet [id number] Physical Exam by System: Neurological: A&Ox3 RUE D5, B5, T5, HG5, IO5 LUE D4+, B4+, T4+, HG4+, IO5 RLE HF 4+, KE4+, PF5, DF5 (pain limited) LLE HF 4-, KE4-, PF4, DF5 Recent Lab Results: Results: Recent Arterial Blood Gas Results 09/18/2021 11:48 [id number] 24 h range: ( 219 - 224 ) pH7.44 24 h range: ( 7.44 - 7.45 ) gVP832 24 h range: ( 37 - 40 ) UN8309 24 h range: ( 100 - 100 ) Base Excess2.8 24 h range: ( 1.8 - 2.8 ) Ogrsyonjtfz73.2 24 h range: ( 25.7 - 27.2 [...] the note. I personally evaluated the patient [id number] Comments/ Additional Findings Patients postoperative CT scan [...] an (more content not included)... Normal [facility] Laboratory - Coagulationon 0 09-19-2021 [...] 1.59 mg/dL Low 1.60 - 2.40 [facility] Comment on above: Performed By: #### R ENAL #### [facility] [address] [place] [address] PT Evaluation v2-attemptedon 09-19-2021 PT Evaluation v2-attempted Rehab: Info: Mode of Treatmentattempted Time IN11:37 Time OUT11:50 Total Treatment [id number] Evaluation Not PerformedHistory obtained, BP assessed in supine 79/54mmHg, RN notified and redone with 71/51mmHg, will hold PT eval at this time and reattempt as medically appropriate Electronic Signatures: Kaykay Yoo (PT) (Signed 19-Sep-2021 12:14) Authored: Info Last Updated: 19-Sep-2021 12:14 by Kaykay Yoo (PT) Normal [facility] RENAL FUNCTION PANELon 09-19 Albumin [Mass/Vol] 3.4 g/dL Normal 3.4 - 5.0 [facility] Comment on above: Performed By: #### A FPA3 #### [facility] [address] [place] [address] Anion gap [Moles/Vol] 18 mmol/L Normal 10 - 20 [facility] Comment on above: Performed By: #### A FPA3 #### [facility] [address] [place] [address] Calcium [Mass/Vol] 8.3 mg/dL Low 8.6 - 10.6 [facility] Comment on above: Performed By: #### A FPA3 #### [facility] [address] [place] [address] Chloride [Moles/Vol] 100 mmol/L Normal 98 - 107 [facility] Comment on above: Performed By: #### A FPA3 #### [facility] [address] [place] [address] Creatinine [Mass/Vol] 0.60 mg/dL Normal 0.50 - 1.05 [facility] Comment on above: Performed By: #### A FPA3 #### [facility] [address] [place] [address] eGFR FEMALE >90 Normal >90 [facility] Comment on above: Result Comment: CALC ULATIONS OF ESTIMATED GFR ARE PERFORMED USING THE 2020 CKD-EPI STUDY REFIT EQUATION WITHOUT THE RACE VARIABLE FOR THE IDMS-TRACEABLE CREATININE METHODS. https://jasn.asnjournals.org/content/early//ASN.376 7325608 Performed By: #### A FPA3 #### [facility] [address] [place] [address] Glucose [Mass/Vol] 82 mg/dL Normal 74 - 99 [facility] Comment on above: Performed By: #### A FPA3 #### [facility] [address] [place] [address] HCO3 (Bld) [Moles/Vol] 26 mmol/L Normal 21 - 32 [facility] Comment on above: Performed By: #### A FPA3 #### [facility] [address] [place] [address] Phosphate [Mass/Vol] 2.8 mg/dL Normal 2.5 - 4.9 [facility] Comment on above: Result Comment: The performance characteristics of phosphorus testing in heparinized plasma have been validated by the individual laboratory site where testing is performed. Testing on heparinized plasma is not approved by the FDA; however, such approval is not necessary. Performed By: #### A FPA3 #### [facility] [address] [place] [address] Potassium [Moles/Vol] 4.5 mmol/L Normal 3.5 - 5.3 [facility] Comment on above: Performed By: #### A FPA3 #### [facility] [address] [place] [address] Sodium [Moles/Vol] 139 mmol/L Normal 136 - 145 [facility] Comment on above: Performed By: #### A FPA3 #### [facility] [address] [place] [address] Urea nitrogen [Mass/Vol] 9 mg/dL Normal 6 - 23 [facility] Comment on above: Performed By: #### A FPA3 #### [facility] [address] [place] [address] Albumin [Mass/Vol] 3.6 g/dL Normal 3.4 - 5.0 [facility] Comment on above: Performed By: #### R ENAL #### [facility] [address] [place] [address] Anion gap [Moles/Vol] 13 mmol/L Normal 10 - 20 [facility] Comment on above: Performed By: #### R ENAL #### [facility] [address] [place] [address] Calcium [Mass/Vol] 8.9 mg/dL Normal 8.6 - 10.6 [facility] Comment on above: Performed By: #### R ENAL #### [facility] [address] [place] [address] Chloride [Moles/Vol] 100 mmol/L Normal 98 - 107 [facility] Comment on above: Performed By: #### R ENAL #### [facility] [address] [place] [address] Creatinine [Mass/Vol] 0.51 mg/dL Normal 0.50 - 1.05 [facility] Comment on above: Performed By: #### R ENAL #### [facility] [address] [place] [address] eGFR FEMALE >90 Normal >90 [facility] Comment on above: Result Comment: CALC ULATIONS OF ESTIMATED GFR ARE PERFORMED USING THE 2020 CKD-EPI STUDY REFIT EQUATION WITHOUT THE RACE VARIABLE FOR THE IDMS-TRACEABLE CREATININE METHODS. https://jasn.asnjournals.org/content//ASN.184 0431008 Performed By: #### R ENAL #### [facility] [address] [place] [address] Glucose [Mass/Vol] 123 mg/dL High 74 - 99 [facility] Comment on above: Performed By: #### R ENAL #### [facility] [address] [place] [address] HCO3 (Bld) [Moles/Vol] 28 mmol/L Normal 21 - 32 [facility] Comment on above: Performed By: #### R ENAL #### [facility] [address] [place] [address] Phosphate [Mass/Vol] 2.8 mg/dL Normal 2.5 - 4.9 [facility] Comment on above: Result Comment: The performance characteristics of phosphorus testing in heparinized plasma have been validated by the individual laboratory site where testing is performed. Testing on heparinized plasma is not approved by the FDA; however, such approval is not necessary. Performed By: #### R ENAL #### [facility] [address] [place] [address] Potassium [Moles/Vol] 4.3 mmol/L Normal 3.5 - 5.3 [facility] Comment on above: Performed By: #### R ENAL #### [facility] [address] [place] [address] Sodium [Moles/Vol] 137 mmol/L Normal 136 - 145 [facility] Comment on above: Performed By: #### R ENAL #### [facility] [address] [place] [address] Urea nitrogen [Mass/Vol] 8 mg/dL Normal 6 - 23 [facility] Comment on above: Performed By: #### R ENAL #### [facility] [address] [place] [address] Renal Function Panelon 09-19 Albumin BCP dye [Mass/Vol] 3.4 g/dL 3.4 - 5.0 [facility] [facility] Work Phone: Anion gap [Moles/Vol] 18 [...] RACE VARIABLE FOR THE IDMS-TRACEABLE CREATININE METHODS.https://jasn.asnjournals.org/content/ /ASN.9143973813 ANTIBODY IDENT.on 09-18-2021 ANTIBODY IDENT. Anti-E Normal [facility] Comment on above: Performed By: #### A FPA3 #### [facility] [address] [place] [address] ARTERIAL FULL PANELon 2021 Anion gap [Moles/Vol] 5 mmol/L Low 10 - 25 [facility] Comment on above: Performed By: #### A FPA3 ####[id number] [place] [address] BASE EXCESS-BLOOD 2.8 mmol/L Normal -2.0 - 3.0 [facility] Comment on above: Performed By: #### A FPA3 ####[id number] [place] [address] BICARB, CALCULATED 27.2 mmol/L High 22.0 - 26.0 [facility] Comment on above: Performed By: #### A FPA3 ####[id number] [place] [address] CALCIUM,IONIZED 1.20 mmol/L Normal 1.10 - 1.33 [facility] Comment on above: Performed By: #### A FPA3 ####[id number] [place] [address] Chloride [Moles/Vol] 106 mmol/L Normal 98 - 107 [facility] Comment on above: Performed By: #### A FPA3 ####[id number] [place] [address] Glucose [Mass/Vol] 149 mg/dL High 74 - 99 [facility] Comment on above: Performed By: #### A FPA3 ####[id number] [place] [address] Hematocrit (Bld) [Volume fraction] 38.0 % Normal 36.0 - 46.0 [facility] Comment on above: Performed By: #### A FPA3 ####[id number] [place] [address] HGB,CALCULATED 12.9 g/dL Normal 12.0 - 16.0 [facility] Comment on above: Performed By: #### A FPA3 ####[id number] [place] [address] Lactate [Moles/Vol] 0.9 mmol/L Normal 0.4 - 2.0 [facility] Comment on above: Performed By: #### A FPA3 ####[id number] [place] [address] Oxygen (Bld) [Partial pressure] 219 mm[Hg] High 85 - 95 [facility] Comment on above: Performed By: #### A FPA3 ####[id number] [place] [address] PATIENT TEMPERATURE 37.0 degrees C Normal [facility] Comment on above: Result Comment: NOTE : PATIENT RESULTS ARE NOT CORRECTED FOR TEMPERATURE. Performed By: #### A FPA3 ####[id number] [place] [address] PCO2 40 mmHg Normal 38 - 42 [facility] Comment on above: Performed By: #### A FPA3 ####[id number] [place] [address] pH (Bld) 7.44 [pH] High 7.38 - 7.42 [facility] Comment on above: Performed By: #### A FPA3 ####[id number] [place] [address] Potassium [Moles/Vol] 4.4 mmol/L Normal 3.5 - 5.3 [facility] Comment on above: Performed By: #### A FPA3 ####[id number] [place] [address] SO2 100 % Normal 94 - 100 [facility] Comment on above: Performed By: #### A FPA3 ####[id number] [place] [address] Sodium [Moles/Vol] 134 mmol/L Low 136 - 145 [facility] Comment on above: Performed By: #### A FPA3 ####[id number] [place] [address] Anion gap [Moles/Vol] 7 mmol/L Low 10 - 25 [facility] Comment on above: Performed By: #### A FPA3 #### [facility] [address] [place] [address] BASE EXCESS-BLOOD 1.8 mmol/L Normal -2.0 - 3.0 [facility] Comment on above: Performed By: #### A FPA3 #### [facility] [address] [place] [address] BICARB, CALCULATED 25.7 mmol/L Normal 22.0 - 26.0 [facility] Comment on above: Performed By: #### A FPA3 #### [facility] [address] [place] [address] CALCIUM,IONIZED 1.20 mmol/L Normal 1.10 - 1.33 [facility] Comment on above: Performed By: #### A FPA3 #### [facility] [address] [place] [address] Chloride [Moles/Vol] 105 mmol/L Normal 98 - 107 [facility] Comment on above: Performed By: #### A FPA3 #### [facility] [address] [place] [address] Glucose [Mass/Vol] 174 mg/dL High 74 - 99 [facility] Comment on above: Performed By: #### A FPA3 #### [facility] [address] [place] [address] Hematocrit (Bld) [Volume fraction] 37.0 % Normal 36.0 - 46.0 [facility] Comment on above: Performed By: #### A FPA3 #### [facility] [address] [place] [address] HGB,CALCULATED 12.6 g/dL Normal 12.0 - 16.0 [facility] Comment on above: Performed By: #### A FPA3 #### [facility] [address] [place] [address] Lactate [Moles/Vol] 1.1 mmol/L Normal 0.4 - 2.0 [facility] Comment on above: Performed By: #### A FPA3 #### [facility] [address] [place] [address] Oxygen (Bld) [Partial pressure] 224 mm[Hg] High 85 - 95 [facility] Comment on above: Performed By: #### A FPA3 #### [facility] [address] [place] [address] PATIENT TEMPERATURE 37.0 degrees C Normal [facility] Comment on above: Result Comment: NOTE : PATIENT RESULTS ARE NOT CORRECTED FOR TEMPERATURE. Performed By: #### A FPA3 #### [facility] [address] [place] [address] PCO2 37 mmHg Low 38 - 42 [facility] Comment on above: Performed By: #### A FPA3 #### [facility] [address] [place] [address] pH (Bld) 7.45 [pH] High 7.38 - 7.42 [facility] Comment on above: Performed By: #### A FPA3 #### [facility] [address] [place] [address] Potassium [Moles/Vol] 3.9 mmol/L Normal 3.5 - 5.3 [facility] Comment on above: Performed By: #### A FPA3 #### [facility] [address] [place] [address] SO2 100 % Normal 94 - 100 [facility] Comment on above: Performed By: #### A FPA3 #### [facility] [address] [place] [address] Sodium [Moles/Vol] 134 mmol/L Low 136 - 145 [facility] Comment on above: Performed By: #### A FPA3 #### [facility] [address] [place] [address] CT L Spine without Contrasto n 09-18-2021 [...] connectors. Objective Data: Objective Information: T PRBPSpO2 [id number]/4391% Date/Time09/18 6: 5: 5: 5: 5:56 Range(37C [...] Recent Arterial Blood Gas Results 09/18/2021 11:48 [id number] 24 h range: ( 219 - 224 ) pH7.44 24 h range: ( 7.44 - 7.45 ) pIH243 24 h range: ( 37 - 40 ) ZO9076 24 h range: ( 100 - 100 ) Base Excess2.8 24 h range: ( 1.8 - 2.8 ) Xxvyuihchzb54.2 24 h range: ( 25.7 - 27.2 ) Assessment and Plan: Code Status: Code StatusFull Code Electronic Signatures: Bryan Mora) (Signed 18-Sep-2021 14:47) Authored: Service, Subjective Data, Objective Data, Assessment and Plan, Note Completion Last Updated: 18-Sep-2021 14:47 by Bryan Mora) Normal [facility] Daily Progress Note-Neurosur jinny 09-18-2021 Daily Progress Note-Neurosurgery Service: Neurosurgery Subjective Data: MORALES LEE is a 46 year old Female who is Hospital Day # 4. Objective Data: Objective Information: T PRBPSpO2 [id number]/4391% Date/Time1/14 6:041/14 5:56114 5:56114 5:561/14 5:56 Range(36.6C [...] Intake and Output ----- Mn/Dy/Year TimeInt[facility]OutNov[facility] Sep 17, 2021 10:00 [id number] Sep 17, 2021 2:00 [id number] The Intake and Output Totals for the [...] the note. I personally evaluated the patient [id number] Electronic Signatures: Fidel Maciel (Resident)) (Signed 18-Sep-2021 06:55) Authored: Service, Subjective Data, Objective Data, Assessment and Plan, Note Completion Lex Frederick) (Signed 19-Sep-2021 10:18) Authored: Note Completion Co-Signer: Service, Subjective Data, Objective Data, Assessment and Plan, Note Completion Last Updated: 19-Sep-2021 10:18 by Lex Frederick) Normal [facility] Laboratory - Chemistry and C [...] (Bld) [Moles/Vol] 1.20 mmol/L See Below [facility]ology[facility] [facility] I Work Phone: Comment [...] dated 10/07/2020. MRI dated 12/11/2020 ACCESSION NUMBER(S): [id number] ORDERING CLINICIAN: ANGELO JUAREZ TECHNIQUE: Thin cut [...] stated. This study was interpreted at [facility], [place], [place]. Electronically signed by: BOONE LAO MD Normal [facility] No Panel Informationon 09-18 0.0 [...] Respiratory Rate15 breath per minute Blood Pressure Tqupoxmk11 mm/Hg Blood Pressure Lgjurrskg31 mm/Hg COVID 19 Results in Last 7 [...] 06:59 by Lian Zuleta (SANAZ) Normal [facility] Radiologyon 09-18-2021 XR Chest Single [...] - 4.9 [facility] astroen terology-[place] [facility] Work Phone: Comment on above: The [...] >90 >90 [facility] astroen terology-[place] [facility] [facility] Work Phone: Comment on above: CALCULATIONS OF IVY MATED GFR ARE PERFORMED USING THE 2020 CKD-EPI STUDY REFIT EQUATION WITHOUT THE RACE VARIABLE FOR THE IDMS-TRACEABLE CREATININE METHODS.https://jasn.asnjournals.org/content/early /ASN.6448803058 TH CHEST; 1 VIEWon 2 TH CHEST; 1 VIEW Patient Name: MORALES LEE STUDY: CHEST; 1 VIEW; 09/18/2021 2:38 pm INDICATION: s/p central line placement (right IJ double lumen) . COMPARISON: Radiograph dated 09/15/2021 ACCESSION NUMBER(S): [id number] ORDERING CLINICIAN: BRYAN MORA FINDINGS: Right IJ [...] signed by: LORELEI JOHNSTON MD Normal [facility] VENOUS FULL PANELon 09-18-19 22 Anion gap [Moles/Vol] 6 mmol/L Low 10 - 25 [facility] Comment on above: Performed By: #### V FPA3 #### [facility] [address] [place] [address] BASE EXCESS-BLOOD 3.9 mmol/L High -2.0 - 3.0 [facility] Comment on above: Performed By: #### V FPA3 #### [facility] [address] [place] [address] BICARB, CALCULATED 28.5 mmol/L High 22.0 - 26.0 [facility] Comment on above: Performed By: #### V FPA3 #### [facility] [address] [place] [address] CALCIUM,IONIZED 1.17 mmol/L Normal 1.10 - 1.33 [facility] Comment on above: Performed By: #### V FPA3 #### [facility] [address] [place] [address] Chloride [Moles/Vol] 103 mmol/L Normal 98 - 107 [facility] Comment on above: Performed By: #### V FPA3 #### [facility] [address] [place] [address] Glucose [Mass/Vol] 188 mg/dL High 74 - 99 [facility] Comment on above: Performed By: #### V FPA3 #### [facility] [address] [place] [address] Hematocrit (Bld) [Volume fraction] 39.0 % Normal 36.0 - 46.0 [facility] Comment on above: Performed By: #### V FPA3 #### [facility] [address] [place] [address] HGB,CALCULATED 13.3 g/dL Normal 12.0 - 16.0 [facility] Comment on above: Performed By: #### V FPA3 #### [facility] [address] [place] [address] Lactate [Moles/Vol] 1.2 mmol/L Normal 0.4 - 2.0 [facility] Comment on above: Performed By: #### V FPA3 #### [facility] [address] [place] [address] Oxygen (Bld) [Partial pressure] 56 mm[Hg] High 35 - 45 [facility] Comment on above: Performed By: #### V FPA3 #### [facility] [address] [place] [address] PATIENT TEMPERATURE 37.0 degrees C Normal [facility] Comment on above: Result Comment: NOTE : PATIENT RESULTS ARE NOT CORRECTED FOR TEMPERATURE. Performed By: #### V FPA3 #### [facility] [address] [place] [address] PCO2 42 mmHg Normal 41 - 51 [facility] Comment on above: Performed By: #### V FPA3 #### [facility] [address] [place] [address] pH (Bld) 7.44 [pH] High 7.33 - 7.43 [facility] Comment on above: Performed By: #### V FPA3 #### [facility] [address] [place] [address] Potassium [Moles/Vol] 4.1 mmol/L Normal 3.5 - 5.3 [facility] Comment on above: Performed By: #### V FPA3 #### [facility] [address] [place] [address] SO2 91 % High 45 - 75 [facility] Comment on above: Performed By: #### V FPA3 #### [facility] [address] [place] [address] Sodium [Moles/Vol] 133 mmol/L Low 136 - 145 [facility] Comment on above: Performed By: #### V FPA3 #### [facility] [address] [place] [address] CORONAVIRUS 2019, SCREEN ASY MPTOMATICon 09-17-2021 SARS-CoV-2 (COVID-19) RNA ADRIÁN+probe Ql (Unsp spec) Not detected Normal Not Detected [facility] Comment on above: Result Comment: . This test has received FDA Emergency Use Authorization (EUA) and has been verified by [facility] ([facility]). This test is only authorized for the duration of time that circumstances exist to justify the authorization of the emergency use of in vitro diagnostic tests for the detection of SARS-CoV-2 virus and/or diagnosis of COVID-19 infection under section 564(b)(1) of the Act, 21 U.S.C. 360bbb-3(b)(1), unless the authorization is terminated or revoked sooner. [facility] is certified under CLIA-88 as qualified to perform high complexity testing. Testing is performed in the [facility] located at [address] [place] [address]. SARS-CoV-2/Flu/RSV Multiplex Test: Fact sheet for providers: https://www.fda.gov/media/775847/download Fact sheet for patients: https://www.fda.gov/media/479472/download Performed By: #### C OVSC ####[id number] [place] [address] Lab Specimen Source Nasal, Nasopharyngeal Normal [facility] Comment on above: Performed By: #### C OVSC ####[id number] [place] [address] Coronavirus 2019 RNA by PCR, Screening Asymptomticon 09-17-2021 Coronavirus 2019 RNA by PCR, Screening Asymptomtic Not detected Normal See Below [facility]astro[facility]ology[facility] [facility] [facility] Work Phone: Comment on above: SOURCE: Nasal, Nasop haryngealReference Range: Not Detected.This test has received FDA Emergency Use Authorization (EUA) and has been verified by [facility] ([facility]). This test is only authorized for the duration of time that circumstances exist to justify the authorization of the emergency use of in vitro diagnostic tests for the detection of SARS-CoV-2 virus and/or diagnosis of COVID-19 infection under section 564(b)(1) of the Act, 21 U.S.C. 360bbb-3(b)(1), unless the authorization is terminated or revoked sooner. [facility] is certified under CLIA-88 as qualified to perform high complexity testing. Testing is performed in the [facility] located at [address] [place] [address].SARS-CoV-2/Flu/RSV Multiplex Test: Fact sheet for providers: https://www.fda.gov/media/586395/downloadFact sheet for patients: https://www.fda.gov/media/714442/download Covid 19 Resultson 2 SARS-CoV-2 (COVID-19) RNA [...] may also be contacted by the [facility] to see if any of [...] or Naproxen (Aleve) can also be used. Vdyr-tjq-cqtbnic cough and cold medicines can be used according to the instructions on the package. Some pfds-fkb-jrlhfat medicines also contain acetaminophen. 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 Avoid touching your eyes, nose, and mouth [...] mariella (more content not included)... Normal [facility] Daily Progress Note - Psychi vivianyon 09-17-2021 [...] pain but found it well-controlled on Dilaudid COMPUTER ANIMATOR and 5/10 mg oxycodone. Pt is interested [...] he has been working (cardoza at a [employer]), but she looks forward to his arrival [...] her suboxone. Objective: Objective Information: T PRBPSpO2 Value36.32715174/9095% Date/Time09/17 4: 10: 10:: 10:00 Range(35.7C - 36.6C ) (81 - 89 ) (10 - 23 ) (73 - 117 )/ (43 - 90 ) (91% - 96% ) As of 17-Sep-2021 08:00:00, patient is on 3 L/min of oxygen via nasal cannula. Pain reported at 09/17 8:00: 8 = Severe ---- Intake and Output ----- Mn/Dy/Year TimeIntakeOutputNet Sep 17, 2021 6:00 [id number] Sep 16, 2021 2:00 [id number] The Intake and Output Totals for the last 24 hours are: IntakeOutputNet [id number] Mental Status Exam: General: Awake, lying in [...] Da (more content not included)... Normal [facility] Daily Progress Note-Neurosur jinny 09-17-2021 Daily Progress Note-Neurosurgery Service: Neurosurgery Subjective Data: MORALES LEE is a 46 year old Female who is Hospital Day # 3. Objective Data: Objective Information: T PRBPSpO2 Value35.6083245/4393% Date/Time09/16 18:541/12 18:5409/16 18:5409/16 18:5409/16 18:54 Range(35.7C - 36.4C ) (81 - 91 ) (15 - 24 ) (87 - 118 )/ (43 - 84 ) (91% - 96% ) As of 16-Sep-2021 18:54:00, patient is on 2 L/min of oxygen via nasal cannula. Pain reported at 09/16 16:34: 10 = Severe ---- Intake and Output ----- Mn/Dy/Year TimeIntakeOut[facility] Sep 16, 2021 2:00 [id number] Physical Exam by System: Neurological: A&Ox3 RUE [...] the note. I personally evaluated the patient [id number] Comments/ Additional Findings I again explained to [...] 19-Sep-2021 10:16 by Lex Frederick) Normal [facility] HCG,URINEon 09-17-2021 Beta HCG ( test) Ql (U) Negative Normal Negative [facility] Comment on above: Performed By: #### A FPA3 #### [facility] [address] [place] [address] Laboratory - Blood bankon ABO group Nom [...] REQUEST-LEUKOREDUCED RED CELLS ORDER RECD Normal [facility] Comment on above: Performed By: #### O RULING TECHNICIAN #### [facility] [address] [place] [address] TYPE + SCREENon 09-17-2021 ABO TYPE O Normal [facility] Comment on above: Performed By: #### T +S #### [facility] [address] [place] [address] RH TYPE Positive Normal [facility] Comment on above: Performed By: #### T +S #### [facility] [address] [place] [address] Urine Teston 09-17 HCG ( test) Ql (U) Negative Negative [facility]-Gastroen terology-[place] 6 [facility] Work Phone: BNPon 09-16-2021 Natriuretic peptide B (Bld) [Mass/Vol] 37 pg/mL Normal 0 - 99 [facility] Comment on above: Result Comment: [...] information. Performed By: #### A FPA3 #### [facility] [address] [place] [address] CBC AND DIFFERENTIALon 09-16 % AUTOMATED IMMATURE GRAN 0.5 % Normal 0.0 - 0.9 [facility] Comment on above: Result Comment: Jaleesa ture Granulocyte Count (IG) includes promyelocytes, myelocytes and metamyelocytes but does not include bands. Percent differential counts (%) should be interpreted in the context of the absolute cell counts (cells/L). Performed By: #### C BCDF ####[id number] [place] [address] Basophils (Bld) [#/Vol] 0.04 10*3/uL Normal 0.00 - 0.10 [facility] Comment on above: Performed By: #### C BCDF ####[id number] [place] [address] Basophils/100 WBC (Bld) 0.5 % Normal 0.0 - 2.0 [facility] Comment on above: Performed By: #### C BCDF ####[id number] [place] [address] Eosinophils (Bld) [#/Vol] 0.26 10*3/uL Normal 0.00 - 0.70 [facility] Comment on above: Performed By: #### C BCDF ####[id number] [place] [address] Eosinophils/100 WBC (Bld) 3.0 % Normal 0.0 - 6.0 [facility] Comment on above: Performed By: #### C BCDF ####[id number] [place] [address] Erythrocyte distribution width (RBC) [Ratio] 13.0 % Normal 11.5 - 14.5 [facility] Comment on above: Performed By: #### C BCDF ####[id number] [place] [address] Hematocrit (Bld) [Volume fraction] 42.7 % Normal 36.0 - 46.0 [facility] Comment on above: Performed By: #### C BCDF ####[id number] [place] [address] Hemoglobin (Bld) [Mass/Vol] 14.1 g/dL Normal 12.0 - 16.0 [facility] Comment on above: Performed By: #### C BCDF ####[id number] [place] [address] Lymphocytes (Bld) [#/Vol] 3.17 10*3/uL Normal 1.20 - 4.80 [facility] Comment on above: Performed By: #### C BCDF ####[id number] [place] [address] Lymphocytes/100 WBC (Bld) 37.2 % Normal 13.0 - 44.0 [facility] Comment on above: Performed By: #### C BCDF ####[id number] [place] [address] MCHC (RBC) [Mass/Vol] 33.0 g/dL Normal 32.0 - 36.0 [facility] Comment on above: Performed By: #### C BCDF ####[id number] [place] [address] MCV (RBC) [Entitic vol] 91 fL Normal 80 - 100 [facility] Comment on above: Performed By: #### C BCDF ####[id number] [place] [address] Monocytes (Bld) [#/Vol] 0.47 10*3/uL Normal 0.10 - 1.00 [facility] Comment on above: Performed By: #### C BCDF ####[id number] [place] [address] Monocytes/100 WBC (Bld) 5.5 % Normal 2.0 - 10.0 [facility] Comment on above: Performed By: #### C BCDF ####[id number] [place] [address] Neutrophils (Bld) [#/Vol] 4.55 10*3/uL Normal 1.20 - 7.70 [facility] Comment on above: Performed By: #### C BCDF ####[id number] [place] [address] Neutrophils/100 WBC (Bld) 53.3 % Normal 40.0 - 80.0 [facility] Comment on above: Performed By: #### C BCDF ####[id number] [place] [address] NUCLEATED RBC 0.0 /100 WBC Normal 0.0-0.0 [facility] Comment on above: Performed By: #### C BCDF ####[id number] [place] [address] Platelets (Bld) [#/Vol] 278 10*3/uL Normal 150 - 450 [facility] Comment on above: Performed By: #### C BCDF ####[id number] [place] [address] RBC 4.70 x10E12/L Normal 4.00 - 5.20 [facility] Comment on above: Performed By: #### C BCDF ####[id number] [place] [address] WBC (Bld) [#/Vol] 8.5 10*3/uL Normal 4.4 - 11.3 [facility] Comment on above: Performed By: #### C BCDF ####[id number] [place] [address] COAGULATION SCREENon 022 aPTT Coag (Bld) [Time] 31 s Normal 26 - 39 [facility] Comment on above: Result Comment: Note new reference range as of 08/04/2021 at 10:00am. Performed By: #### V FPA3 #### [facility] [address] [place] [address] PT Coag (PPP) [Time] 11.6 s Normal 9.8 - 13.4 [facility] Comment on above: Result Comment: Note new reference range as of 08/04/2021 at 10:00am. Performed By: #### V FPA3 #### [facility] [address] [place] [address] PT, INR 1.0 Normal 0.9 - 1.1 [facility] Comment on above: Performed By: #### V FPA3 #### [facility] [address] [place] [address] Clinical Event Note-ADMISSIO N CLARIFICATIONon 09-16-2021 Clinical [...] and monitoring for withdrawal. Provider/Team Contact Info-Pager [phone] Electronic Signatures: Sharmin Guaman (SENIOR ASSISTANT MANAGER-HUMAN SERVICES PROGRAM SPECIALIST) (Signed 16-Sep-2021 12:07) Authored: Clinical Event Note Last Updated: 16-Sep-2021 12:07 by Sharmin Guaman (SENIOR ASSISTANT MANAGER-HUMAN SERVICES PROGRAM SPECIALIST) Normal [facility] Complete Blood Count + Diffe rentialon 09-16-2021 Basophils/100 WBC (Bld) 0.5 % 0.0 - 2.0 M [facility]-Gastroen terology-[facility] 6 [facility] Work Phone: Erythrocyte distribution width (RBC) [Ratio] 13.0 % See Below MG-Gastroen terology-[place] [facility] 6 [facility] Work Phone: Comment on above: Reference Range: 11. 5 - 14.5 Hematocrit (Bld) [Volume fraction] 42.7 % See Below MG-Gastroen terology-[place] [facility] 6 [facility] Work Phone: Comment on above: Reference Range: 36. 0 - 46.0 Hemoglobin (Bld) [Mass/Vol] 14.1 g/dL See Below MG-Gastroen terology-[facility] 6 I Work Phone: Comment on above: Reference Range: 12. 0 - 16.0 Lymphocytes/100 WBC (Bld) 37.2 % See Below MG-Gastroen terology-[place] [facility] 6 [facility] Work Phone: Comment on above: Reference Range: 13. 0 - 44.0 MCHC (RBC) [Mass/Vol] 33.0 g/dL See Below MG- Gastroen terology-[place] [facility] 6 [facility] Work Phone: Comment on above: Reference Range: 32. 0 - 36.0 MCV (RBC) [Entitic vol] 91 fL 80 - 100 M G-Gastroen terology-[place] [facility] 6 [facility] Work Phone: Monocytes/100 WBC (Bld) 5.5 [...] 0.0 {/100_WBC} 0.0-0.0 MG-Gastroen terology-[facility] [place] 6 [facility] Work Phone: Consult-Painon 09-16-2021 Consult-Pain Service: [...] the note. I personally evaluated the patient [id number] Electronic Signatures: Chidi Lamar (Fellow)) (Signed 16-Sep-2021 [...] Consult - Psychiatry 15-Sep-2021 20:42 Normal [facility] Consult-Perioperative Medici neon 09-16-2021 Consult-Perioperative Medicine Service: [...] penicillin: Unknown Objective: Objective Information: T PRBPSpO2 [id number]/8491% Date/Time09/16 11:131/12 12:4909/16 12:4909/16 12:4909/16 12:49 Range(36.3C [...] mg (more content not included)... Normal [facility] Cult, Urineon 09-16-2021 Bacteria identified Cx Nom (U) Abnormal [facility]Gastroen terology-[facility] Work Phone: Daily Progress Note-Neurosur jinny 09-16-2021 Daily Progress Note-Neurosurgery Service: Neurosurgery Subjective Data: MORALES LEE is a 46 year old Female who is Hospital Day # 3. Objective Data: Objective Information: T PRBPSpO2 Value36.0538761/6693% Date/Time09/16 1: 4: 4: 4: 4:00 Range(36.3C [...] (suboxone) in AM COWS psych recs SCD's, [facility] Attestation: Note Completion: I am a: Resident/Fellow [...] the note. I personally evaluated the patient [id number] Comments/ Additional Findings TO OR this Tuesday if medically optimized for T12 - Pelvis fusion and Instrumentation. Pain consult for management regrading Suboxone and pain control in the perioperative period. US LE MRI of the lumbar spine., Lex Frederick MD, [facility], FAANS Director - Minimally Invasive Spine Surgery [facility] [employer] Third of Neurological Surgery [facility] [employer] [place], [place] Electronic Signatures: Fidel Maciel (Resident)) (Signed 16-Sep-2021 04:33) Authored: Service, Subjective Data, Objective Data, Assessment and Plan, Note Completion Lex Frederick) (Signed 16-Sep-2021 10:22) Authored: Note Completion Co-Signer: Service, Subjective Data, Objective Data, Assessment and Plan, Note Completion Last Updated: 16-Sep-2021 10:22 by Lex Frederick) Normal [facility] EMR ADDONon 09-16-2021 ADDON CONFIRMATION REQUEST REC'D Normal [facility] Comment on above: Performed By: [...] above: . <100 pg/mL - Heart failure [id number] pg/mL - Intermediate probability of acute heart. [...] 3.5 g/dL Normal 3.4 - 5.0 [facility] Comment on above: Performed By: #### R ENAL #### [facility] [address] [place] [address] Anion gap [Moles/Vol] 14 mmol/L Normal 10 - 20 [facility] Comment on above: Performed By: #### R ENAL #### [place] [address] [place] [address] Calcium [Mass/Vol] 8.9 mg/dL Normal 8.6 - 10.6 [facility] Comment on above: Performed By: #### R ENAL #### [facility] [address] [place] [address] Chloride [Moles/Vol] 101 mmol/L Normal 98 - 107 [facility] Comment on above: Performed By: #### R ENAL #### [facility] [address] [place] [address] Creatinine [Mass/Vol] 0.63 mg/dL Normal 0.50 - 1.05 [facility] Comment on above: Performed By: #### R ENAL #### [facility] [address] [place] [address] eGFR FEMALE >90 Normal >90 [facility] Comment on above: Result Comment: CALC ULATIONS OF ESTIMATED GFR ARE PERFORMED USING THE 2020 CKD-EPI STUDY REFIT EQUATION WITHOUT THE RACE VARIABLE FOR THE IDMS-TRACEABLE CREATININE METHODS. https://jasn.asnjournals.org/content//ASN.116 6279399 Performed By: #### R ENAL #### [facility] [address] [place] [address] Glucose [Mass/Vol] 88 mg/dL Normal 74 - 99 [facility] Comment on above: Performed By: #### R ENAL #### [facility] [address] [place] [address] HCO3 (Bld) [Moles/Vol] 29 mmol/L Normal 21 - 32 [facility] Comment on above: Performed By: #### R ENAL #### [facility] [address] [place] [address] Phosphate [Mass/Vol] 3.4 mg/dL Normal 2.5 - 4.9 [facility] Comment on above: Result Comment: The performance characteristics of phosphorus testing in heparinized plasma have been validated by the individual laboratory site where testing is performed. Testing on heparinized plasma is not approved by the FDA; however, such approval is not necessary. Performed By: #### R ENAL #### [facility] [address] [place] [address] Potassium [Moles/Vol] 3.7 mmol/L Normal 3.5 - 5.3 [facility] Comment on above: Performed By: #### R ENAL #### [facility] [address] [place] [address] Sodium [Moles/Vol] 140 mmol/L Normal 136 - 145 [facility] Comment on above: Performed By: #### R ENAL #### [facility] [address] [place] [address] Urea nitrogen [Mass/Vol] 10 mg/dL Normal 6 - 23 [facility] Comment on above: Performed By: #### R ENAL #### [facility] [address] [place] [address] Renal Function Panelon 09-16 Albumin BCP dye [...] - 5.3 [facility]- Gastroen terology-[place] [facility] 6 [facility] Work Phone: Sodium [Moles/Vol] 140 mmol/L 136 - 145 MG-Gas troen terology-[place] 6 I Work Phone: Urea nitrogen [Mass/Vol] 10 mg/dL 6 - 23 [facility]Gastroen terology-[place] 6 I Work Phone: Renal Function Panel >90 >90 MG-G astroen terology-[place] 6 [facility] Work Phone: Comment on above: CALCULATIONS OF IVY MATED GFR ARE PERFORMED USING THE 2020 CKD-EPI STUDY REFIT EQUATION WITHOUT THE RACE VARIABLE FOR THE IDMS-TRACEABLE CREATININE METHODS.https://jasn.asnjournals.org/content/ /ASN.9867559777 [facility] 09-16-2021 BACTERIA 2+ /HPF Abnormal [facility] Comment on above: Performed By: #### U AMIC ####[id number] [place] [address] Mucus Ql (Urine sed) 1+ /LPF Normal [facility] Comment on above: Performed By: #### U AMIC ####[id number] [place] [address] RBC 3 /HPF Normal 0-5 [facility] Comment on above: Performed By: #### U AMIC ####[id number] [place] [address] SQUAMOUS EPITH. CELLS 2 /HPF Normal [facility] Comment on above: Performed By: #### U AMIC ####[id number] [place] [address] WBC 115 /HPF Abnormal 0-5 [facility] Comment on above: Performed By: #### U AMIC ####[id number] [place] [address] URINALYSISon 09-16-2021 Appearance (U) HAZY Normal CLEAR [facility] Comment on above: Performed By: #### U A ####[id number] [place] [address] Bilirubin Ql (U) Negative Normal NEGATIVE [facility] Comment on above: Performed By: #### U A ####[id number] [place] [address] Color (U) YELLOW Normal STRAW,YELL OW [facility] Comment on above: Performed By: #### U A ####[id number] [place] [address] Glucose Ql (U) Negative Normal NEGATIVE [facility] Comment on above: Performed By: #### U A ####[id number] [place] [address] Hemoglobin Ql (U) Negative Normal NEGATIVE [facility] Comment on above: Performed By: #### U A ####[id number] [place] [address] Ketones Ql (U) Negative Normal NEGATIVE [facility] Comment on above: Performed By: #### U A ####[id number] [place] [address] Leukocyte esterase Test strip Ql (U) LARGE (3+) Abnormal NEGATIVE [facility] Comment on above: Performed By: #### U A ####[id number] [place] [address] Nitrite Ql (U) Positive Abnormal NEGATIVE [facility] Comment on above: Performed By: #### U A ####[id number] [place] [address] pH (U) 6.0 [pH] Normal 5.0 - 8.0 [facility] Comment on above: Performed By: #### U A ####[id number] [place] [address] Protein Ql (U) Negative Normal NEGATIVE [facility] Comment on above: Performed By: #### U A ####[id number] [place] [address] Specific gravity (U) [Rel density] 1.011 Normal 1.005 - 1.035 [facility] Comment on above: Performed By: #### U A ####[id number] [place] [address] Urobilinogen (U) [Mass/Vol] 2.0 mg/dL High 0.0 - 1.9 [facility] Comment on above: Result Comment: [...] positive urobilinogen. Performed By: #### U A ####[id number] [place] [address] URINE CULTURE,BACTERIALon URINE CULTURE,BACTERIAL PATIENT: Fay LEE LOCATION: [facility]#: [id number] : 71 AGE: SEX: F ORDERED BY: [...] NS=NONSUSCEPTIBLE X=REPORTED IN ERROR ___ Normal [facility] Comment on above: Performed By: #### A FPA3 #### [facility] [address] [place] [address] Urinalysison 09-16-2021 Color (U) YELLOW See Below MG-Gastroen Open Wager-[facility] Work Phone: Comment on above: Reference Range: STR AW,YELLOW Glucose Ql (U) Negative NEGATIVE MG-Gastroe n terology-[place] 6 [facility] Work Phone: Ketones Ql (U) Negative NEGATIVE MG-Gastroe n terology-[facility] 6 [facility] Work Phone: Leukocyte esterase Test strip Ql (U) LARGE (3+) Abnormal NEGATIVE [facility]-Gastroen terology-[place] 6 I Work Phone: pH (U) 6.0 [pH] 5.0 - 8.0 [facility]-Gastroen terology-[place] [facility] 6 I Work Phone: Protein (U) [Mass/Vol] Negative NEGATIVE [facility] -Gastroen terology-[place] [facility] 6 I Work Phone: RBC (U) [#/Vol] Negative NEGATIVE [facility] Work Phone: Specific gravity (U) [Rel density] 1.011 1 See Below [facility] Work Phone: Comment on above: Reference Range: 1.0 05 - 1.035 Urinalysis Positive Abnormal NEGATIVE [facility] Work Phone: Urinalysis 2.0 mg/dL above high threshold 0.0 - 1.9 [facility] Work Phone: Comment on above: Due [...] Urinalysis Negative NEGATIVE [facility]-Gastroen terology-[place] 6 [facility] Work Phone: Urinalysis HAZY CLEAR [facility]-Gastroen terology-[place] 6 [facility] Work Phone: Urinalysis, Microscopicon Urinalysis, Microscopic 1+ M [facility] I Work Phone: Urinalysis, Microscopic 2+ [...] 09-16-2021 VAS LAB Venous Duplex Ultrasound DVT [place] [address] and Vascular Lab Report Lower Venous Duplex Ultrasound Patient Name: MORALES LEE [place] Physician: [id number] Arjun Romero MD, RPVI Study Date: 09/16/2021 Referring Physician: [id number] HARRISON RAGSDALE MRN/PID: [id number] PCP: Accession/Order#: [id number] CC Report to: Date of : 1975 Technologist: Isai Burleson RVT Gender: F Technologist 2: Admission Status: Outpatient Location Performed: [facility] Diagnosis/ICD: M79.89-Left leg swelling; M79.89-Right leg swelling Procedure/CPT: 25665 Peripheral venous duplex scan for DVT complete-04980 CONCLUSIONS: Right Lower Venous: No evidence of [...] Spontaneous/Phasic Peroneal Yes None PTV Yes None [id number] Arjun Romero MD, YOLIE Final Normal [facility] VAS LAB Venous Duplex Ultra sound for DVTon 09-16-2021 [facility] Venous Duplex Ultrasound for DVT MG-Gastroen terology-[place] 6 I Work Phone: No Panel Informationon 09-15 [email or web address] ?RetrieveTestByDateTime?P azsrtiKR=[email or web address]&Date=1 09-05-2021&Time=19%3a14%3a 23%3a00&TestType=ECG&Site =1&OutputType=PDF&Ext=PDF MG-Gastroen terology-[place] [facility] 6 [...] I Work Phone: [email or web address] ?RetrieveTestByDateTime?P najnasFA=[id number]&Date=1 09-05-2021&Time=19%3a14%3a 42%3a00&TestType=ECG&Site =1&OutputType=PDF&Ext=PDF MG-Gastroen terology-[place] [facility] 6 [...] Practice Nurse) done by Concetta Shi ([facility]) Admission - Reconciliation: 15-Sep-2021 19:03 by: [...] Incomplete: 30-Sep-2021 14:18 by: Concetta Shi ([facility]) Admission - Reconciliation: 30-Sep-2021 14:20 by: Concetta Shi ([facility]) Home MedicationsEnteredLast Dose TakenReconciled with current Order Reconciliation Comment/ Additional Information acetaminophen 325 mg oral tablet 2 tab(s) orally every 6 hours, as needed while having post operative [id number] Reviewed and Held Ambien CR 12.5 mg oral tablet, extended release 1 tab(s) oral [id number] Zolpidem Tablet (AMBIEN)DOSE = 10 mg Oral At BedtimeNotes from Pharmacy: Substitution For Zolpidem (Ambien CR) 12.5 mg at Bedtime Ambien CR 12.5 mg oral tablet, extended release continued as the inpatient order Zolpidem Ankle Foot Orthosis for foot [id number] Reviewed and Held betamethasone topical valerate 0.1% topical cream 1 milena topical prn 15-Sep-2021 EnteredInError Reviewed and Held Bilateral Prafos - orthotics to fit, - ICD 10: R26.0, M21.37, M62.81 30-Sep-2021 Reviewed and Held calcium-vitamin D 500 mg-200 intl units (5 mcg) oral tablet 1 tab(s) orally 4 times a [id number] Calcium 500 mg - Vitamin D 200 [...] times a day, as needed for muscle [id number] Cyclobenzaprine Tablet (FLEXERIL)DOSE = 10 mg Oral [...] topical 1% topical gel 1 milena topical [id number]-Eel-6996 Reviewed and Held DULoxetine 30 mg oral [...] 2 tab(s) orally once a day, As Ssnzow17-Ywn-2935 Reviewed and Held gabapentin 800 mg oral tablet 1 tab(s) oral 3 times a nqg54-Iog-6941 Gabapentin Capsule (NEURONTIN)DOSE = 800 mg Oral 3 Times a Day gabapentin 800 mg oral tablet continued as the inpatient order Gabapentin LEFT AFO -Orthotics to fit, ICD 10: M21.1836-Vnq-4783 Reviewed and Held lidocaine 5% topical film Apply topically to affected area once a day, As Needed near surgical incision for incisional pain 15-Sep-2021 EnteredInError Reviewed and Held lisinopril 20 mg oral tablet 1 tab(s) oral once a [id number]-3339 Lisinopril Tablet (PRINIVIL, ZESTRIL)DOSE = 20 mg [...] patch TransDermal Every 24 HoursNotes from Pharmacy: [facility] nicotine 14 mg/24 hr transdermal film, extended [...] - available over the counter at any -Fbd-3641 Reviewed and Held RIGHT AFO - Orthotics to fit, - M21.2390-Zgu-2346 Reviewed and Held sennosides-docusate 8.6 mg-50 mg oral tablet 2 tab(s) orally 2 times a day , -Take while using oxycodone for post operative pain to prevent contipation 15-Sep-19 (more content not included)... Normal [facility] Radiologyon 09-15-2021 XR Chest Single view Normal MG-G astroen terology-[facility] 6 [facility] Work Phone: TH CHEST 1 VIEWon 09-15-2021 TH CHEST 1 VIEW Patient Name: MORALES LEE STUDY: CHEST 1 VIEW; 09/15/2021 7:21 pm INDICATION: pre-op . COMPARISON: 12/26/2020. ACCESSION NUMBER(S): [id number] ORDERING CLINICIAN: TOSHA BORJA FINDINGS: CARDIOMEDIASTINAL SILHOUETTE: [...] signed by: Esther PEDERSON MD Normal [facility] Established Visit (Neurosurg ariana)on 09-08-2021 [...] obvious instability (more content not included)... Normal [facility] No Panel Informationon 09-08 Normal MG-Neurosur [employer]Miguel Work Phone: Please click on the link [...] and T6-L4 Fusion. COMPARISON: None. ACCESSION NUMBER(S): [id number] ORDERING CLINICIAN: LEX FREDERICK FINDINGS: Fused PA [...] Electronically signed by: JOSEPH SALAZAR MD Normal [facility] Tobacco Screening.on Fall risk assessment b) One or more fall s in the last year MG-Nuha dav[employer]uel Work Phone: Tobacco use status CPHS a) Yes M G-[employer]judy samsonNegotiantMiguel Work Phone: Established Visit (Neurosurg ariana)on 05-05-2021 [...] patient at her home and myself at [facility]. She mentions that overall she is [...] in Ms. LEE care. Lex Frederick MD, [facility], FAANS Director - Minimally Invasive Spine Surgery [facility] [employer] Third of Neurological Surgery [facility] [employer] [place], [place] Some of this note was completed using [employer] voice recognition technology and sometimes the software [...] May 05 2021 9:18PM EST (Author) Normal [facility] Established Visit (Neurosurg ariana)on 01-08-2021 Established Visit [...] the further treatment plan. Lex Frederick MD, [facility], FAANS Director - Minimally Invasive Spine Surgery [facility] Etiquette Teacher of Neurological Surgery [facility] [employer] [place], [place] Some of this note was completed using [employer] voice recognition technology and sometimes the software [...] Unspecified cord compression. COMPARISON: None. ACCESSION NUMBER(S): [id number] ORDERING CLINICIAN: LEX FREDERICK TECHNIQUE: Multiplanar and [...] spine. Electronically signed by: LENNY HAGER MD [facility] NR MRI L-SPINE WOon 12-12-19 21 NR MRI L-SPINE WO Patient Name: MORALES LEE STUDY: MRI L-SPINE WO; ; 12/11/2020 1:38 pm INDICATION: Lumbar Pain Scoliosis, unspecified Low back pain. COMPARISON: CT lumbar spine from 10/07/2020. MRI lumbar spine from 03/11/2016. ACCESSION NUMBER(S): [id number] ORDERING CLINICIAN: LEX FREDERICK TECHNIQUE: MRI of [...] multiple levels. This study was interpreted at [facility]. Electronically signed by: WESLEY CARBAJAL MD [facility] Initial Visit (Neurosurgery) on 10-28-2020 Initial Visit [...] Status:Resulted - Preliminary,Retrospective By Protocol Authorization; Done: [id number] 12:00AM Reason: Unspecified for Xray Spine, entire thoracic/lumbar, include skull, cervical and sacral spine when performed, 2 or 3 view Radiologist to Determine Optimal Study : Y What are the patient's signs and symptoms? : Lumbar Pain SocHx: Current smoker Tobacco Use Screening; Status:Complete; Done: [id number] Patient Discussion/Summary It was a pleasure to see Ms. LEE at the Neurosurgery Spine Clinic at [facility]. Ms. 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 She now has been having severe symptoms [...] another spine surgeon at the [facility] who recommended urgent surgery for her [...] even walk (more content not included)... Normal [employer]Non 07-10-2019 CNPN Telephone (SPNMMN) ----- MORALES LEE ([id number]) 1975 F Date Time Provider Department 07/10/19 [...] Order(s):CONSULT TO ORTHOPAEDIC SURGERY [19991006] Order #: [id number]: 1 Prescriptions as of 07/10/2019 Sig: LISINOPRIL [...] Status:Closed by DIXIE TEE MD on 07/10/19 [facility] CNOVon 07-09-2019 CNOV Office Visit (SPNSMN ) ----- MORALES LEE ([id number]) 1975 F Date Time Provider Department 07/09/19 9:30 AM STEVENSON QUAN SPNSMN During your visit today, we recorded the following information about you: Pulse Respiration Blood pressure Weight 89/minute 18/minute 124/74 95.8 kg Height 1.499 m Stevenson Quan MD 07/09/2019 2:56 PM Signed SPINE SURGERY OUTPATIENT CONSULT SERVICE DATE: 07/09/2019 PCP: No primary care provider on file. REFERRING PROVIDER: Dixie Tee MD [address] [facility] [address] Consult requested for an opinion regarding the [...] with the patient or the patient?s personal tour sales representative. The patient has elected to schedule surgery at this time or intends to call the office with a surgical date. Shared decision making occurred while obtaining informed consent. 1. Imaging: Thoracic CT Without Contrast 2. Encouraged to call the office with any questions or concerns 3. Follow up: Following above Hannah Gupta APRN.HUMAN SERVICES PROGRAM SPECIALIST I reviewed the information obtained and documented [...] 10:24 AM PAGER: Referring Provider: DIXIE TEE [[id number]] Allergies As of Date: 07/09/2019 Noted Allergy Reaction CODEINE 10/24/2010 7 - Swelling PENICILLINS 10/24/2010 7 - Swelling PHENERGAN (PROMETHAZINE HCL) 10/24/2010 7 - Swelling Date Reviewed: 07/09/2019 Reviewed by: Kirstin Yang) VIDYA Godoy - Fully Assessed Reason for Visit: New Patient [172] Primary Visit Diagnosis:Sagittal plane imbalance [M43.8X9] Other Visit Diagnosis:Spinal stenosis of thoracic region [M48.04] Order(s):CT THORACIC SPINE WO IVCON [1480709] Order #: [id number] FUTURE Prescriptions as of 07/09/2019 Sig: LISINOPRIL [...] Status:Closed by STEVENSON QUAN MD on 07/09/19 [facility] OBSOLETEon 07-09-2019 OBSOLETE Procedure (EMGMN) ----- MORALES LEE ([id number]) 1975 F Date Time Provider Department 07/09/19 7:45 AM EMG 1 NEUR MAIN EMGMN During your visit today, we recorded the following information about you: Referring Provider: DIXIE TEE [[id number]] Allergies As of Date: 07/09/2019 Noted Allergy [...] upper limb [G56.21] Order(s):EMG(NEURO/NI) [[id number]] Order #: [id number]: 1 Prescriptions as of 07/09/2019 Sig: LISINOPRIL [...] by JHON EASON MD on 07/09/19 [facility] PROGRESSon 07-09-2019 PROGRESS HNO ID: [id number] Author: Stevenson Quan Service: ? Author Type: Physician Type: Progress Notes Filed: 07/09/2019 2:56 PM Note Text: SPINE SURGERY OUTPATIENT CONSULT SERVICE DATE: 07/09/2019 PCP: No primary care provider on file. REFERRING PROVIDER: Dixie Tee MD [address] [facility] [address] Consult requested for an opinion regarding the [...] with the patient or the patient?s personal tour sales representative. The patient has elected to [...] 09, 2019 TIME: 10:24 AM PAGER: [facility] OT-XR DEXA BONE DENSITY IMPO RTon 07-06-2019 OT-XR DEXA BONE DENSITY IMPORT Images were obtained outside of [facility] [id number] [facility] CASE MGT INIT [facility] 2018 CASE MGT INIT [facility] HNO ID: [id number] Author: Kimberly (Rn) MERA Dunaway Service: ? Author Type: Registered Nurse Type: Care Mgt Initial Assessment Filed: 06/20/2019 12:25 PM Note Text: CARE MANAGEMENT: ASSESSMENT AND DISCHARGE PLAN SERVICE DATE: 06/20/2019 SERVICE TIME: 12:21 PM PRIMARY CARE PHYSICIAN: No primary care provider on file. 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 No Advance Directive: Current Advance Directive: None Cath Lab Manager Attempted to Assist with AD Completion: [...] Lee Address: [address] [place] [address] [facility] Mobile Relation: Spouse Supportive: Yes Other [...] 0 I feel financially burdened by my cbi-us-ctybws expenses for my prescription medication: Disagree completely [...] 20, 2019 TIME: 12:21 PM PAGER/CONTACT #: [phone] Normal [facility] CBCon 06-20-2019 Erythrocyte distribution width (RBC) [Ratio] 12.6 % Normal 11.5-15.0 [facility] Comment on above: Performed By: #### C BC #### [place] [phone] Hematocrit (Bld) [Volume fraction] 48.7 % High 36.0-46.0 [facility] Comment on above: Performed By: #### C BC #### [place] [phone] Hemoglobin (Bld) [Mass/Vol] 16.8 g/dL High 11.5-15.5 [facility] Comment on above: Performed By: #### C BC #### [place] [phone] MCH (RBC) [Entitic mass] 31.1 pG Normal 26.0-34.0 [facility] Comment on above: Performed By: #### C BC #### [place] [phone] MCHC (RBC) [Mass/Vol] 34.5 g/dL Normal 30.5-36.0 [facility] Comment on above: Performed By: #### C BC #### [place] [phone] MCV (RBC) [Entitic vol] 90.0 fL Normal 80.0-100.0 [facility] Comment on above: Performed By: #### C BC #### [place] [phone] Platelet mean volume (Bld) [Entitic vol] 10.6 fL Normal 9.0-12.7 [facility] Comment on above: Performed By: #### C BC #### [place] [id number] [place] [address] Platelets (Bld) [#/Vol] 334 10*3/uL Normal 150-400 [facility] Comment on above: Performed By: #### C BC #### [place] [address] RBC (Bld) [#/Vol] 5.41 10*6/uL High 3.90-5.20 [facility] Comment on above: Performed By: #### C BC #### [place] [address] WBC (Bld) [#/Vol] 10.85 10*3/uL Normal 3.70-11.00 [facility] Comment on above: Performed By: #### C BC #### [place] [address] CONSULTon 06-20-2019 CONSULT HNO ID: [id number] Author: Evelyn Resendez Service: Pain Management Author [...] controlled substances - including suboxone - from [facility]. Of note, pt has followed [...] me to leave. She is now leaving [place]. 3. Will sign off _ SUBJECTIVE CHIEF [...] activity was identified. 06/20/2019 by Evelyn Resendez APRN.HUMAN SERVICES PROGRAM SPECIALIST PAST MEDICAL HISTORY Diagnosis Date - Degenerative [...] 20, 2019 TIME: 8:24 AM PAGER/CONTACT #: [phone] (M-F [id number]) [facility] CT BRAIN WO IVCONon 06-20-[address] BRAIN WO IVCON * * *Final Report* * * DATE OF EXAM: Jun 20 2019 1:31AM [facility] 0504 - CT BRAIN WO IVCON [...] No large cortical infarct or acute hemorrhage. Or Assistant: ADITYA Transcribe Date/Time: Jun 20 2019 1:33A Dictated by : DAVONTE MOY MD This examination was interpreted and the report reviewed and electronically signed by: DAVONTE MOY MD on Jun 20 2019 1:35AM EST [id number] [facility] ECG COMPLETEon 06-20-2019 ECG COMPLETE NAME : MORALES LEE PID : [id number] : 1975 Gender : Female Race : ORD : [id number] Procedure Date : Jun 19 2019 23:57:03 Edit Date : Jun 20 2019 07:51:18 Diagnosis:Sinus rhythm Normal ECG no STEMI 1200a Confirmed by MD ARREDONDO LISA ([id number]), editor continuity and script FOREST WALTON ([id number]) on 06/20/2019 7:51:18 AM Ventricular Rate : 85 BPM Atrial Rate : 85 BPM P-R Interval : 137 ms QRS Duration : 91 ms Q-T Interval : 365 ms QTC Calculation(Bazett) : 434 ms P Afton : 51 degrees R Afton : -13 degrees T Afton : 61 degrees Test Reason : Chest Pain Location : 302 : ED AVED-1 Overread By : MD ARREDONDO LISA Edited By : FOREST WALTON Referred By : , Acquired by : [id number], [facility] ED NOTEon 06-20-2019 ED NOTE HNO ID: [id number] Author: Yuki Mckenzie) MERA Cruz Service: ? Author Type: Registered Nurse Type: ED Notes Filed: 06/20/2019 1:40 AM Note Text: Patient got CT, it is still pending and Jessie MESA said ok to transfer to [place] with out results pending. Patient agreeing and understanding of transfer. updated on POC and transfer via telephone. DM here to take patient at this time. Pain is not improved at time of transfer. [facility] ED NOTE HNO ID: [id number] Author: Yuki Cruz RN Service: ? Author Type: Registered Nurse Type: ED Notes Filed: 06/20/2019 1:15 AM Note Text: Clean catch urine specimen obtained and sent. [facility] ED NOTE HNO ID: [id number] Author: Yuki Cruz RN Service: ? Author [...] time with getting transferred to another facility. [facility] ED NOTE HNO ID: [id number] Author: Yuki Mckenzie) MERA Cruz Service: ? Author Type: Registered Nurse Type: ED Notes Filed: 06/20/2019 3:28 AM Note Text: Patient stated Valium did not help. She continues to be in pain and upset. She wanted to speak with someone in charge and update on POC. Normal [facility] HISTORY PHYSICALon 9 HISTORY PHYSICAL HNO ID: [id number] Author: Talita Wesley RN Service: General Internal [...] tightness that is constant. Notices a decreased bale sewer strength and weakness in left hand. She [...] pressure, palpitations, leg swelling. Denies hx of [place]. GI: Denies nausea, vomiting, diarrhea, abdominal pain, [...] rotation 40/80% Decreased left C5-C7 sensation. Left bale sewer strength 2/5. Right bale sewer strength 5/5. UE DTR intact and equal. [...] tightness into left arm, weak left hand bale sewer strength, and worsening severity of numbness/tingling -Afebrile [...] Needs confirmed with patient pharmacy. Patient uses [facility] in [place], [place]. Patient provided #[phone]. Will call in am to confirm dose. Nicotine Abuse Assessment AND Plan: Smokes 1 1/2 PPD for 20 years. Smoking cessation advised. Nicotine patch ordered. Medication and Non-Pharmacologic VTE Prophylaxis/Anticoagulant s VTE Prophylaxis: VTE prophylaxis appropriate SIGNATURE: Talita Wesley APRN.CNP PATIENT NAME: Morales Lee DATE: June 20, 2019 TIME: 2:58 AM PAGER/CONTACT #: U # [phone] [facility] NURSING PROGon 06-20-2019 NURSING PROG HNO ID: [id number] Author: Austyn (Rn) MERA Berumen Service: Nursing Author Type: Registered Nurse Type: Nursing Progress Note Filed: 06/20/2019 3:10 PM Note Text: Nursing Progress Note Patient Name: Morales Lee Patient Location: [id number] -02 Daily Note:06/20/2019 -pt is upset regarding [...] note was completed by: AUSTYN BERUMEN RN [facility] NURSING PROG HNO ID: [id number] Author: Austyn Mckenzie) MERA Berumen Service: Nursing Author Type: Registered Nurse Type: Nursing Progress Note Filed: 06/20/2019 8:10 AM Note Text: Nursing Progress Note Patient Name: Morales Lee Patient Location: [id number] -02 Daily Note:06/20/2019 -assumed care of patient, pt is requesting her suboxone. We have to call to verify dosage. -MERA Acosta called pharmacy provided by night MANAGER REVENUE and the pharmacy does not open until 9am. We will call back to verify dose later. -Dr. Kwon called to speak with this RN, he will be in to see the patient later today. This note was completed by: AUSTYN BERUMEN RN [facility] NURSING PROG HNO ID: [id number] Author: Guadalupe Herbert RN Service: ? Author Type: Registered Nurse Type: Nursing Progress Note Filed: 06/20/2019 4:33 AM Note Text: Nursing Progress Note Patient Name: Morales Lee Patient Location: [id number]/[id number]-8835 -02 Daily Note:AANDO x 3. C/O left [...] note was completed by: Guadalupe Herbert RN [facility] PROGRESSon 06-20-2019 PROGRESS HNO ID: [id number] Author: Sedrick Martin Service: General Internal Medicine [...] rales. Cor:RSR, no murmurs. 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 DATA: Diagnostic tests [...] VTE Prophylaxis/Anticoagulant s 06/20/19399 pneumatic compression stockings (ri,dc) 06/20/19399 activity - mobilize patient ([place], [place]) VTE Prophylaxis: appropriate SIGNATURE: Sedrick Martin MD PATIENT NAME: Morales Lee DATE: June 20, 2019 TIME: 10:41 AM PAGER: [facility] PROGRESS HNO ID: [id number] Author: Sedrick Martin Service: General Internal Medicine Author Type: Physician Type: Progress Notes Filed: 06/20/2019 8:25 AM Note Text: As per Pain Management Consult still pending, I was notified by Pain Management to resume the pt.' s home Suboxone dosage until pt. Seen later today. Normal [facility] Troponin Ton 06-20-2019 Troponin T.cardiac [Mass/Vol] ug/L Normal 0.000-0.[address] [place] [address] Comment on above: Performed By: #### T NT #### [place] [address] Troponin T.cardiac [Mass/Vol] ug/L Normal 0.000-0.[address] [place] [address] Comment on above: Performed By: #### T NT #### [place] [phone] Basic Metabolic Panlon 06-19 Anion gap [Moles/Vol] 14 mmol/L Normal 9-18 [facility] Calcium [Mass/Vol] 10.3 mg/dL High 8.5-10.2 [facility] Chloride [Moles/Vol] 96 mmol/L Low 97-105 [facility] CO2 [Moles/Vol] 29 mmol/L Normal 22-30 [facility] Creatinine [Mass/Vol] 0.59 mg/dL Normal 0.58-0.96 [facility] eGFR- Amer. >60 [facility] [...] 1). Potassium [Moles/Vol] 3.7 mmol/L Normal 3.7-5.1 [facility] Sodium [Moles/Vol] 139 mmol/L Normal 136-144 [facility] Urea nitrogen [Mass/Vol] 7 mg/dL Normal 7-21 [facility] CBC and Differentialon 06-19 Abs Baso 0.09 k/uL Normal <0.11 [facility] Abs Calvert 0.61 k/uL Normal <0.87 [facility] Abs Neut 7.56 k/uL High 1.45-7.50 [facility] Absolute nRBC <0.01 Normal <0.01 [facility] Basophils/100 WBC (Bld) 0.7 % Normal [facility] DTYPE Auto Diff Normal [facility] [...] MCHC (RBC) [Mass/Vol] 34.2 g/dL Normal 30.5-36.0 [facility] MCV (RBC) [Entitic vol] 87.7 fL Normal 80.0-100.0 [facility] Monocytes/100 WBC (Bld) 4.6 % Normal [facility] Neutrophils/100 WBC (Bld) 57.4 % Normal [facility] NRBCs 0.0 /100 WBC [...] ED NOTEon 06-19-2019 ED NOTE HNO ID: [id number] Author: Yuki WilksRn) MERA Cruz Service: ? Author Type: Registered Nurse Type: ED Notes Filed: 06/20/2019 3:27 AM Note Text: Patient has requested valium, she says that she takes it at home. Biago updated. Normal [facility] ED NOTE HNO ID: [id number] Author: Yuki WilksRn) MERA Cruz Service: ? Author Type: Registered Nurse Type: ED Notes Filed: 06/20/2019 3:27 AM Note Text: Patient is complaining of nausea. She is requesting her saboxon as well and Biago was updated on request. [facility] ED NOTE HNO ID: [id number] Author: Yuki WilksRn) MERA Cruz Service: ? Author Type: Registered Nurse Type: ED Notes Filed: 06/19/2019 7:54 PM Note Text: Said that after her surgery in 2016 her left pinky and ring finger are numb but she said lately her other fingers on that hand have been getting numb as well. [facility] ED NOTE HNO ID: [id number] Author: Vanessa WilksRn) MERA Ruiz Service: ? Author Type: Registered Nurse Type: ED Notes Filed: 06/19/2019 6:48 PM Note Text: Patient has chronic neck pain for three years. Saw spine doctor 06/12/2019 for the same had x rays. Denies any new injury. States pain goes into left arm. Arrived via wheelchair [facility] ED PROV NOTEon 06-19-2019 ED PROV NOTE HNO ID: [id number] Author: Tracy Arredondo Service: Emergency Medicine Author [...] light touch over bilateral lower extremities. 3/5 bale sewer, bicep, tricep strength over LUE. Decreased sensation to light touch over left upper extremity in median, radial, and ulnar nerve distribution. 5/5 bale sewer, bicep, tricep strength of R UE. Skin: [...] neurosurgical consult as previous notes from her coding and reimbursement specialist recommend obtaining EMG and possible further [...] a neurosurgical consult she warrants transfer to [facility] for further management of her condition. We have low suspicion for stroke at this time as pain appears to be radicular in nature and she has had worsening progression of her symptoms with documented notes from spine (Dr. Álvarez) suggesting this worsening pain and numbness. The HUMAN SERVICES PROGRAM SPECIALIST, Talita, at [facility] recommended we obtain a CT brain and she must rule out any acute intercranial abnormality that may be contributing to the patient's symptoms. Therefore, this study was ordered and will be followed up by the night team especially if there is any acute intracranial abnormality. As long as there is no acute intracranial abnormality she will be transferred to [facility] for further evaluation and management of her condition. Patient voiced understanding was in agreement with the above plan. This patient's case was discussed with Dr. Arredondo who personally evaluated the patient supervised her care. The patient was TRANSFERRED to: [facility] Condition at time of disposition: stable SIGNATURE: NORMA Montgomery (Pa) 06/20/19 0026 Attending Note I have personally performed a face to face assessment of the patient and have reviewed the PA/ELECTRIC DISTRIBUTION ENGINEER note. My schofield findings include: History is [...] of 5 strength left upper extremities in bale sewer strength as well as biceps and triceps [...] worsening neck pain we will place her [place] observation for cardiac rule out as well [...] and requested by the observation provider at [facility] as they were concerned about stroke. However I doubt this and did not feel this was necessary however it is currently pending and patient will be transferred to [place] if this is unremarkable. Signature: Tracy Arredondo DO Date: 06/20/2019 Time: 12:26 AM Tracy Arredondo 06/20/19 0033 Normal [facility] Magnesiumon 06-19-2019 Magnesium [Mass/Vol] 2.0 mg/dL Normal 1.7-2.3 [facility] Troponin Ton 06-19-2019 Troponin T.cardiac [Mass/Vol] ug/L Normal 0.000-0.02 9 [facility] CNOVon 06-12-2019 CNOV Office Visit (SPNMMN ) ----- MORALES LEE ([id number]) 1975 F Date Time Provider Department 06/12/19 [...] [Z98.890] Order(s):PATIENT PLACED ON SPINE CARE PATH [[id number]] Order #: [id number]: 1 XR SCOLIOSIS PA STAND/LAT 2V [[id number]] Order #: [id number] FUTURE EMG(NEURO/NI) [[id number]] Order #: [id number]: 1 FUTURE CONSULT TO SPINE SURGERY [[id number]] Order #: [id number]: 1 FUTURE Prescriptions as of 06/12/2019 Sig: [...] Ma 06/12/2019 8:07 AM >> VAHIDMICHEL TALITA ADSILVA Jun 12, 2019 8:07 AM Not taking [...] Status:Closed by DIXIE TEE MD on 06/12/19 [facility] PROGRESSon 06-12-2019 PROGRESS HNO ID: [id number] Author: Robert Mittal (Rt) Service: Radiology Author Type: Neon Sign Maker Type: Progress Notes Filed: 06/12/2019 10:10 AM [...] RT Daxa June 12, 2019 10:09 AM [facility] PROGRESS HNO ID: [id number] Author: Dixie Tee Service: ? Author Type: [...] healed incisions. Chest: symmetric expansion Data Review: [facility] records reviewed Care everywhere Lumbar CT [...] June 12, 2019 TIME: 8:12 AM [facility] XR SCOLIOSIS 2V PA STAND/LAT on [...] changes and multilevel compression deformities as described. Or Assistant: PSCB Transcribe Date/Time: Jun 12 2019 4:36P Dictated by : CAROLINA MOJICA MD This examination was interpreted and the report reviewed and electronically signed by: CAROLINA MOJICA MD on Jun 12 2019 4:39PM EST [id number] [facility] PROGRESSon 05-14-2019 PROGRESS HNO ID: [id number] Author: Laury Levin Service: ? Author Type: Physician Supervising Floorperson Type: Progress Notes Filed: 05/14/2019 1:26 PM [...] to rule out cubital tunnel syndrome. [facility] PROGRESSon 05-09-2019 PROGRESS HNO ID: [id number] Author: Kathia Kelly Service: ? Author Type: ? Type: Progress Notes Filed: 05/14/2019 1:26 PM Note Text: Patient name: Morales Lee Are you being referred by a Center for [facility] Provider or Pain Management Provider at [facility]? No If answer is YES please schedule directly with surgeon, triage does not need to be completed. Is this a self-referral No If not, who is the Referring Provider: Dr. Hendricks/ [facility] MRI/CT/myelogram within 12 months: Yes If No , please refer to medical spine or PCP to complete above imaging, triage does not need to be completed Imaging viewable in Epic: No If not, please provide [phone] to fax in imaging reports for review. [...] will fax imaging report and op notes. [phone] [facility] [address]-CT C-SPINE WO CON IMPORTo n 02-13-2019 CT-CT C-SPINE WO CON IMPORT Images were obtained outside of [facility] [id number] [facility] CT-CT L-SPINE WO CON IMPORTo n 02-13-2019 CT-CT L-SPINE WO CON IMPORT Images were obtained outside of [facility] [id number] [facility] Vital Signs Date Time Vital Sign Value Performing Clinician Facility 05-14-2024 09:48-0400 Body height 157.5 cm Genny Orosco MANAGER REVENUE Work Phone: [facility] 05-14-2024 09:48-0400 Body mass index (BMI) [Ratio] 34.75 kg/m2 Genny Orosco MANAGER REVENUE Work Phone: [facility] 05-14-2024 09:48-0400 Body temperature 96.69 [degF] Genny Orosco MANAGER REVENUE Work Phone: [facility] 05-14-2024 09:48-0400 Body weight 86.18 kg Genny Arizak MANAGER REVENUE Work Phone: [facility] 05-14-2024 09:48-0400 Diastolic blood pressure 54 mm[Hg] Genny Barrosopatrick MANAGER REVENUE Work Phone: [facility] 05-14-2024 09:48-0400 Heart rate 72 /min Genny Cliftontrick MANAGER REVENUE Work Phone: [facility] 05-14-2024 09:48-0400 Systolic blood pressure 104 mm[Hg] Genny Cliftontrick MANAGER REVENUE Work Phone: [facility] 06-07-2022 12:48-0400 Diastolic blood pressure 83 mm[Hg] No Pcp Required [facility] 06-07-2022 12:48-0400 Heart rate 67 /min No Pcp Required [facility] 06-07-2022 12:48-0400 Respiratory rate 16 /min No Pcp Required [facility] 06-07-2022 12:48-0400 SaO2% (BldA) [Mass fraction] 96 % No Pcp Required [facility] 06-07-2022 12:48-0400 Systolic blood pressure 148 mm[Hg] No Pcp Required [facility] 01-06-2022 10:51-0400 Blood Pressure Location NATALIA MANNING [facility] 01-06-2022 10:51-0400 Diastolic blood pressure 86 mm[Hg] NATALIA MANNING [facility] 01-06-2022 10:51-0400 Heart rate 86 /min NATALIA MANNING [facility] 01-06-2022 10:51-0400 Respiratory rate 16 /min NATALIA MANNING [facility] 01-06-2022 10:51-0400 Systolic blood pressure 132 mm[Hg] NATALIA MANNING [facility] 09-08-2021 14:15-0500 Body height 149.86 cm No PCP None MG-Neurosurgery- Ah uja Work Phone: 09-08-2021 14:15-0500 Body mass index (BMI) [Ratio] 36.96 kg/m2 No PCP None PJ-Zasazurgymwh-Nj uja Work Phone: 09-08-2021 14:15-0500 Body surface area Derived from formula 1.78 m2 No PCP None FO-Whumjfcrhrzh-Rj uja Work Phone: 09-08-2021 14:15-0500 Body weight 83.01 kg No PCP None MG-Neurosurgery- Ah uja Work Phone: 09-08-2021 14:15-0500 Diastolic blood pressure 68 mm[Hg] No PCP None JN-Kysbpjtxhjda-Re uja Work Phone: 09-08-2021 14:15-0500 Heart rate 96 /min No PCP None MG-Neurosurgery- Ah uja Work Phone: 09-08-2021 14:15-0500 Respiratory rate 16 /min No PCP None MG-Neurosurgery -Ah uja Work Phone: 09-08-2021 14:15-0500 Systolic blood pressure 115 mm[Hg] No PCP None PD-Uuuppngidehd-Co uja Work Phone: 09-08-2021 14:15-0500 0 1 No PCP None MG-Neurosurgery- Ah uja Work Phone: Comment on above: [employer] 01-01-2021 16:46-0400 Heart rate 111 /min No Pcp Required [facility] 01-01-2021 16:46-0400 SaO2% (BldA) [Mass fraction] 95 % No Pcp Required [facility] 01-01-2021 14:00-0400 Body temperature 96.8 [degF] No Pcp Required [facility] 01-01-2021 14:00-0400 Diastolic blood pressure 77 mm[Hg] No Pcp Required [facility] 01-01-2021 14:00-0400 Respiratory rate 18 /min No Pcp Required [facility] 01-01-2021 14:00-0400 Systolic blood pressure 114 mm[Hg] No Pcp Required [facility] Encounters Encounter Date Encounter Type [...] 05-14-2024 End: 05-14-2024 Bamboo flowsheet Genny Orosco MANAGER REVENUE Work Phone: [facility] Start: 05-14-2024 End: 05-22-2024 Clinisync Result Encounter Genny Orosco MANAGER REVENUE Work Phone: [facility] External Department Unsolicited Start: 05-14-2024 End: 05-22-2024 Clinisync Result Encounter Genny Orosco MANAGER REVENUE Work Phone: [facility] External Department Unsolicited Start: 05-14-2024 End: 05-14-2024 ambulatory GENNY OROSCO Not Available Start: 05-14-2024 End: 05-14-2024 Office outpatient visit 15 minutes Genny Orosco MANAGER REVENUE Work Phone: [facility] Comment on [...] End: 03-31-2024 Pre-admission assessment LEX FREDERICK [facility] Start: 03-26-2024 End: 04-07-2024 Pre-admission assessment LEX FREDERICK [facility] Start: 02-13-2024 End: 02-13-2024 ambulatory SHAIKH [...] Bingham [facility] Start: 11-22-2022 ambulatory MENDOSA H FAWWAD Facilit y:H1 Start: 11-09-2022 End: 11-09-[address] DEVANTE ELIZONDO . Facility:[facility]1 Start: 10-15-2022 End: 10-15-2022 ambulatory KYRA Rojas Facility:[facility]1 Start: 09-24-2022 End: 09-24-2022 Patient encounter procedure Danya Bingham [facility] Start: 09-01-2022 Encounter for preprocedural laboratory examination DANYA BINGHAM . [facility] Start: 08-25-2022 End: 08-25-2022 ambulatory MENDOSA H FAWWAD Facility:H1 Start: 08-24-2022 End: 08-25-2022 ambulatory MENDOSA H FAWWAD Facility:H1 Start: 08-24-2022 End: 08-25-2022 Encounter for preprocedural laboratory examination MENDOSA H FAWWAD Facility:H1 Start: 08-21-2022 ambulatory MENDOSA H FAWWAD Facilit y:H1 Start: 07-16-2022 End: 07-16-2022 Patient encounter procedure Danya Bingham [facility] Start: 06-06-2022 End: 06-07-2022 Emergency department patient visit Yony Aguirre [facility] Adult ED Blue 45 Start: 05-31-2022 End: 05-31-[address] ALEXANDRU SORIA . Facility:H1 Start: 05-19-2022 End: 05-19-2022 Off-Site Danya Bingham [facility] Start: 05-07-2022 End: 05-07-2022 ambulatory SHAIKH [...] 02-04-2022 Off-Site Danya Bingham [facility] Start: 01-11-2022 Chart Update No PCP None MG-Neurosu [facility] [place] Work Phone: Start: 01-11-2022 End: 01-11-2022 Patient encounter procedure Danya Bingham [facility] Start: 01-07-2022 AUDIT No PCP None MG-Neurosu [facility] B200 Work Phone: Start: 01-06-2022 End: 01-06-2022 Patient encounter procedure NATALIA MANNING [facility] Start: 10-13-2021 AUDIT No PCP None MG-Neurosu rgery-Miguel Work Phone: Start: 09-29-2021 AUDIT No PCP None MG-Gastroe nterology-B ol[facility] 6 [facility] Work Phone: Start: 09-15-2021 End: 10-02-2021 Evaluation and management of inpatient Dr. LEX FREDERICK Facility:[facility] Start: 09-09-2021 AUDIT No PCP None MG-Neurosu rgery-Miguel Work Phone: Start: 09-08-2021 Office outpatient vi sit 40 minutes No PCP None PK-Ubqbbzeoivvr-Njxha Work Phone: Start: 05-05-2021 Postop follow up vis it related to original px No PCP None WM-Vtvjvnfmzrkj-FSIQP Work Phone: Start: 12-26-2020 End: 01-01-2021 Evaluation and management of inpatient Lex Frederick [facility] [id number] [id number] Preoperative state No PCP None MG-Neuros urgery-[facility] Work Phone: Procedures Date Procedure Procedure Detail Performing Clinician Start: 08-26-2024 BLOOD CULTURE 1 Generic External Data Provider Start: 08-26-2024 BLOOD CULTURE 2 Generic External Data Provider Start: 07-12-2024 Bacteria identified in Urine by Culture Generic External Data Provider Start: 05-18-2024 Drug test prsmv read direct optical obs pr date Genny Orosco MANAGER REVENUE Work Phone: Start: 05-14-2024 COMPLIANCE DRUG ANAL YSIS, UR Genny Munozzpatrick MANAGER REVENUE Work Phone: Start: 09-21-[address] EFRAIN FREDERICK Comment on above: Performed By: #### A FPA3 #### [facility] [address] [place] [address] Start: 09-21-[address] EFRAIN FREDERICK Comment on above: Order Comment: VENECIA ESPINO, 09/21/2021 05:08TEST TYPE + SCREEN WAS CANCELLED, 09/21/2021 05:06 NO PHLEB ID ON TUBE. Result Comment: CALL ED RN AFSANEH ESPINO, 09/21/2021 05:08 Performed By: #### A FPA3 #### [facility] [address] [place] [address] Start: 09-17-[address] EFRAIN FREDERICK Comment on above: Performed By: #### T +S #### [facility] [address] [place] [address] Start: 12-27-2020 End: 12-28-2020 Release Blood Product-Packed [...] Td Vaccines (2 - Td or Tdap) [facility] Start: 06-13-2024 End: 06-13-2024 Patient encounter procedure 06/13/2024 9:20 AM EDT Office Visit [facility] [address] [place] [address] Lian Greer, SENIOR ASSISTANT MANAGER-HUMAN SERVICES PROGRAM SPECIALIST [address] [place] [address] [facility] Wound [facility] Start: 05-14-2024 End: 05-14-2024 Patient encounter procedure 05/14/2024 9:30 AM EDT Office Visit [facility] [address] [place] [id number] Genny Orosco NP [address] [place] [address] [facility] Start: 05-06-2024 Influenza vaccination [facility] Start: 10-17-2023 End: 10-17-2023 Patient encounter procedure 10/17/2023 6:30 PM EST Office Visit [facility] [address] [place] [id number] Shaikh Obrien MD [address] [place] [address] [facility] Start: 2023 Administration of varicella zoster vaccine Zoster (Shingles) Vaccine (1 of 2) [facility] Start: 05-06-2023 Influenza vaccination Influenza Vacc ine (#1) [facility] Start: 11-03-2021 POV, Provider: Lex Frederick, Status: Pen, Time: 2:00 PM POV, Provider: Lex Frederick, Status: Pen, Time: 2:00 PM MW-Noxoepwzwfudhwsr-O olwell 6 [facility] Work Phone: Start: 10-07-2021 Admission to [facility] RNVISIT, Provider: NURSE VISIT ASHLEY 5TH,MGNEUROSURGERY, Status: Pen, Time: 10:15 AM RE-Fuguopgwbwraygjt-G olwell 6 [facility] Work Phone: Start: 09-18-2021 [facility]: Lex Frederick, Status: Pen, Time: 8:00 AM [facility], Provider: Lex Frederick, Status: Pen, Time: 8:00 AM HW-Qwpkixpkxfcf-Mqltu Work Phone: Start: 01-08-2021 Patient encounter procedure Neurosurgery Miguel Start: 12-31-2020 End: 01-01-2022 [facility] Comment on above: please place at beds geraldine for drain removal Start: 12-26-2020 End: 12-27-2021 Naloxone Injectable 0.4 mg IntraVenous Push Once ; (NARCAN)DOSE = 0.2 mg IntraVenous Push Once, PRN patient is unarousable, and respiratory rate lessClinician Notes: HOLD COMPUTER ANIMATOR Infusion and notify H.O. immediately Start: 26-Dec-2020 End: 26-Dec-2021 Ordered: 26-Dec-2020 Nabil Awan Intent Comments: HOLD COMPUTER ANIMATOR Infusion and notify H.O. immediately [facility] Comment on above: HOLD COMPUTER ANIMATOR Infusion an d notify H.O. immediately Start: 2013 Screening for malign ant neoplasm of breast Mammogram [facility] Start: 2003 Screening for malign ant neoplasm of cervix [facility] Start: 1994 Screening for malign ant neoplasm of cervix Pap Smear [facility] Start: 1991 Adult BMI Screening Adult BMI Screen ing [facility] Start: 1985 Depression Screening Depression Scre ening [facility] Start: 1985 Tobacco Screening Tobacco Screening [facility] Start: 1973 Screening for malign ant neoplasm of colon [facility] Bacteria identified in Urine by Culture URINE CULTURE, ROUTINE Lab Routine 07/12/2024 2:30 PM [facility] BLOOD CULTURE 1 BLOOD CULTURE 1 Lab Routine 08/26/2024 8:29 AM [facility] BLOOD CULTURE 2 BLOOD CULTURE 2 Lab Routine 08/26/2024 8:25 AM [facility] Immunizations Immunization Date Immunization Notes Care Provider Delfino chu 02-22-2020 tetanus toxoid, redu luis diphtheria toxoid, and acellular pertussis vaccine, adsorbed Danya Bingham [facility] 12-05-2018 hepatitis A vaccine, adult dosage Danya Lujacque [facility] Payers Date Payer Category Payer [facility] [id number] 2012 Unknown 1973 Unknown [id number] 2.16.840.1.218732.3.579.2 .356 1973 Unknown [id number] 2.16.840.1.564779.3.579.2 .356 1973 Unknown [id number] 2.16.840.1.346339.3.579.2 .593 1973 Unknown [id number] 2.16.840.1.499184.3.579.2 .593 1973 Unknown [id number] 2.16.840.1.776892.3.579.2 .593 1973 Unknown [id number] 2.16.840.1.948835.3.579.2 .593 1973 Unknown [id number] 2.16.840.1.797680.3.579.2 .593 1973 Unknown [id number] 2.16.840.1.791313.3.579.2 .593 1973 Unknown [id number] 2.16.840.1.351887.3.579.2 .593 1973 Unknown [id number] 2.16.840.1.386563.3.579.2 .593 1973 Unknown [id number] 2.16.840.1.811850.3.579.2 .593 1973 Unknown [id number] 2.16.840.1.866243.3.579.2 .593 1973 Unknown [id number] 2.16.840.1.580269.3.579.2 .593 1973 Unknown [id number] 2.16.840.1.780570.3.579.2 .593 1973 Unknown [id number] 2.16.840.1.187415.3.579.2 .593 1973 Unknown [id number] 2.16.840.1.334863.3.579.2 .593 1973 Unknown [id number] 2.16.840.1.455369.3.579.2 .593 1973 Unknown [id number] 2.16.840.1.608689.3.579.2 .593 1973 Unknown [id number] 2.16.840.1.407165.3.579.2 .593 1973 Unknown [id number] 2.16.840.1.802482.3.579.2 .1046 1973 Unknown [id number] 2.16.840.1.423360.3.579.2 .727 1973 Unknown [id number] 2.16.840.1.615780.3.579.2 .1259 1973 Unknown [id number] 2.16.840.1.940565.3.579.2 .1259 1973 Unknown [id number] 2.16.840.1.851733.3.579.2 .1259 1959 Unknown [id number] Social History Date Type Detail Facility [facility] Tobacco smoking consumption unknown [facility] Start: 08-01-2023 End: 05-14-2024 History of drug use History of drug use FO-Pxqptbntdpys-AWWA C Work Phone: Start: 01-05-2016 End: 02-13-2024 Tobacco smoking status Smokes tobacco daily (finding) [facility] Comment on above: 1ppd 1ppd Start: 08-08-2023 End: 05-14-2024 Sex Assigned At Female [facility] [place] History of tobacco use Cigarette Smoker N [facility] Start: 08-08-2023 End: 05-14-2024 Alcohol intake Lifetime non-drinker (finding) [facility] Start: 1973 Sex Assigned At Not on file N [facility] Childcare Unknown [facility] [...] Functional Status N/A [facility] 07-16-2022 Functional Status N/A [facility] Functional observable [facility] Mental Status Date Assessment Result Facility 12-29-2020 Cognitive functi ons [id number] [facility] Clinical Notes 12-26-2020 to 06-08-2024 Telephone Encounter - Kathrine Patel RN - 06/08/2024 3:24 PM EDTTelephone Encounter - Kathrine Patel RN - 06/08/2024 3:24 PM EDTTelephone Encounter - Kathrine Patel RN - 06/08/2024 3:24 PM EDT Note Date & Type Note Facility 06-08-2024 Miscellaneous Notes ----- Message from [employer] sent at 06/08/2024 3:14 PM EDT ----- Contract: [employer] Lidoderm Patch from [employer], not sure if can use Contract: [facility] Patient is not a current patient of this office informed that we cannnot give advice without this. Will call her insurance company. No triage done Reason for Disposition Caller has cancelled the call before the first contact Protocols used: No Contact or Duplicate Contact Call-A-AH documented in this encounter [facility] 06-08-2024 Telephone encounter Note ----- Message from [employer] sent at 06/08/2024 3:14 PM EDT ----- Contract: [facility] Lidoderm Patch from [facility], not sure if can use [facility] 06-08-2024 Telephone encounter Note Contract: [facility] Patient is not a current patient of this office informed that sameer desir give advice without this. Will call her insurance company. No triage done [facility] 06-08-2024 Telephone encounter Note Reason for Disposition Caller has cancelled the call before the first contact Protocols used: No Contact or Duplicate Contact Call-A-AH [facility] 05-15-2024 History of Presen t illness [...] physician appointments and anticipated to need it prison and lifelong Images from the original note [...] States her daughter in law is an [employer] FACULTY ASSISTANT and helps care for her. When I discussed with patient her chronic neurological issues including spinal cord compression, stenosis and myelopathies, pt states she is no longer seeing neuro because after what the [place] did to me, I am not seeing [...] physician appointments and anticipated to need it prison and lifelong Psychophysiological insomnia Encounter for medication management Relevant Orders Rapid drug screen, urine Pressure ulcer, buttock Patient is wheelchair bound with limited mobility due to chronic LBP, b/l LE weakness. Has associated fecal and urinary incontinence. Relevant Orders Ambulatory referral to Wound Clinic Rapid drug screen, urine Caroline documented in this encounter [facility] 04-24-2024 Telephone encounter Note Patient would like a refill of her Valium. Was from [employer] but did not transfer to [employer]. [facility] 04-24-2024 Miscellaneous Notes Patient would like a refill of her Valium. Was from [employer] but did not transfer to [employer]. documented in this encounter [facility] 11-26-2022 Hospital Discharg e instructions Patient [...] 10/01/2017 Document Revised: 12/14/2019 Document Reviewed: 10/01/2017 [employer]Hub Patient Education 2019 [employer]. Follow Up Care 10/14/2022 11:11:52 With:Zachery HARKINS, CAROLEE Anderson, URO Address: When: Unknown [facility] 09-23-2022 Hospital Discharg e instructions Patient [...] including vitamins, herbs, eye drops, creams, and ncnk-klx-nikwycc medicines. Any problems you or family members [...] provider tells you to take them. Taking bhdo-tiv-zpopypw medicines, vitamins, herbs, and supplements. General instructions [...] Document Reviewed: 10/08/2019 Elsevier Patient Education 2020 [employer]. Follow Up Care 08/31/2022 10:49:10 With:Zachery HARKINS, CAROLEE Anderson, URO Address: When: Unknown [facility] 07-16-2022 Hospital Discharg e instructions [...] nerve stimulation). For women, using a medical assisting program director to prevent urine leaks. This is [...] right after experiencing incontinence. General instructions Take ndnm-ska-vecujji and prescription medicines only as told by [...] 09/29/2005 Document Revised: 09/01/2018 Document Reviewed: 12/01/2017 ElseRasmussen Reports Patient Education 2020 [employer] Follow Up Care 06/15/2022 11:30:52 With:Zachery HARKINS, CAROLEE Anderson, URO Address: When: Unknown [facility] 02-04-2022 Hospital Discharg e instructions Patient [...] nerve stimulation). For women, using a medical assisting program director to prevent urine leaks. This is [...] right after experiencing incontinence. General instructions Take kytr-krx-wvabchd and prescription medicines only as told by [...] 09/29/2005 Document Revised: 09/01/2018 Document Reviewed: 12/01/2017 [employer]Hub Patient Education 2020 [employer] 02/04/2022 16:23:10 Calorie Counting for Weight [...] 08/22/2006 Document Revised: 05/11/2019 Document Reviewed: 07/22/2017 [employer]Hub Patient Education 2020 [employer]. Follow Up Care 02/04/2022 13:28:46 With:Zachery HARKINS, [...] and Plan Diagnosis Bowel and bladder incontinence (BLS32-BB R32, Billing Diagnosis, Medical). Incontinence without sensory awareness (PHS50-OD N39.42, Working, Medical). Diagnosis Bowel and bladder incontinence (JVX30-PF R32, Billing Diagnosis, Medical). Incontinence without sensory awareness (LWJ43-JJ N39.42, Working, Medical). Addendum by Danya Bingham MD on January 11, 2022 10:23 EDT Post procedure diagnosis: Intrinsic sphincter deficiency, acontractile detrusor [facility]05-09-2022 Hospital Discharge instructions Patient Education 01/11/2022 [...] Up Care 01/06/2022 11:41:34 With:Danya Bingham Address: [facility] [address] [phone] Business (1) When: Unknown Comments:Call for followup appointment in 2-3 weeks With:Danya Bingham Address:Unknown When: Unknown [facility]05-04-2022 Hospital Discharge instructions Patient Education 01/06/2022 [...] clinics. Check with your local health department. [facility], where you would pay only what you can afford. To find one near you, check this website: [email or web address] [facility]. These are part of a program [...] 09/05/2016 Document Revised: 09/23/2018 Document Reviewed: 04/19/2017 TextHub Patient Education 2020 [employer]. Follow Up Care 11/20/2021 10:16:51 With:NIGEL GREEN, NATALIA Santillan, URL Address: [address] [place] [address] When:01/13/[address] [facility] 01-28-2022 NoteSend Summary: Discharge Summary Providers: [...] Care - New Vital Signs: T PRBPSpO2 [id number]/6394% Date/Time10/02 8: 8: 8: 8: 8:00 Range(36.1C [...] placement 09/23 Patient transitioned from post op COMPUTER ANIMATOR to oral pain regimen 09/24 Fitted for [...] to grape picker objects (more content not included)...[facility]01-26-2022 NoteThis report has been cancelled.[facility]01-17-2022 NotePROCEDURE DETAILS Postoperative Diagnosis: lumbar stenosis Surgeon: Dr. Lex Frederick Resident/Fellow/Other Supervising Floorperson: Chery Awan Procedure: posterior L4-L5 decompression posterior [...] Last Updated: 22-Sep-2021 10:54 by Lex Frederick)[facility]01-17-2022 NoteHistory & Physical Reviewed: /Lactating: [...] the note. I personally evaluated the patient [id number] Electronic Signatures: Lex Frederick) (Signed 21-Sep-2021 11:50) Authored: Note Completion Co-Signer: History & Physical Reviewed, ERAS, Consent, Note Completion Jaya Mosquera (Resident)) (Signed 21-Sep-2021 02:51) Authored: History & Physical Reviewed, ERAS, Consent, Note Completion Last Updated: 21-Sep-2021 11:50 by Lex Frederick () References: 1. Data Referenced From MRI Safety Screen v2 19-Sep-2021 19:00[facility]01-15-[facility]22 NoteRehab: Info: Mode of Treatmentoccupational [...] appropriate. 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 Exploration of spinal [...] performed and the images transferred to the EveryScape system for use in intraoperative image-guided computer-assisted [...] the torque dri (more content not included)...[facility]01-14-2022 NoteThis report has been cancelled.[facility]01-14-2022 NoteHistory & Physical Reviewed: /Lactating: [...] the note. I personally evaluated the patient [id number] Electronic Signatures: Fidel Maciel (Resident)) (Signed 17-Sep-2021 22:49) Authored: History & Physical Reviewed, ERAS, Consent, Note Completion Lex Frederick) (Signed 19-Sep-2021 10:17) Authored: Note Completion Co-Signer: History & Physical Reviewed, ERAS, Consent, Note Completion Last Updated: 19-Sep-2021 10:17 by Lex Frederick) References: 1. Data Referenced From MRI Safety Screen v2 17-Sep-2021 11:28[facility]01-11-2022 NoteReferral Information: Consult requested by [...] able to m (more content not included)...[facility]01-11-2022 NoteHistory of Present Illness: /Lactating: [...] the note. I personally evaluated the patient [id number] Electronic Signatures: Fidel Maciel (Resident)) (Signed 15-Sep-2021 [...] Last Updated: 16-Sep-2021 10:20 by Lex Frederick)[facility]04-23-2021 History of Present illness Narrative* [...] Ms. LEE care. * Lex Frederick MD, [facility], [facility] * Director - Minimally Invasive Spine Surgery * [facility] * Electrician Third of Neurological Surgery * [facility] [employer] * [place], [place] * Some of this note was completed using [employer]ure voice recognition technology and sometimes the software misinterprets words. This may include unintended errors with respect to translation of words, typographical errors or grammar errors which may not have been identified prior to finalization of the chart note. Please take this into account when reading this note. SU-Mxansauzngmc-Zvtzf Work Phone: 1([phone]) 600-546404-23-2021 Reason for referral (narrative)* Reason for Referral: Patient s/p posterior bilateral L1 transpedicular decompression, posterior T7-T8, T8-T9, T9-T10, T0-T11, T11-T12, T12-L1 hutton hernandez osteotomies, Posterior T5-L4 instrumentation and fusion on 12/26 [facility] App[facility]ments Appointment Date:01/07/2022 11:00:00 AM Scheduled Provider: Location:[facility] Appointment Type:Urology CALL PAT FT Appointment Date:01/11/2022 08:00:00 AM Scheduled Provider: Location:[facility] Appointment Type:Urology FT Appointment Date:01/11/2022 09:00:00 AM Scheduled Provider: Location:[facility] Appointment Type:Urology FT [facility] + [facility] Evaluation + Plan note Future Appointments Appointment Date:04/06/2024 12:00:00 PM Scheduled Provider: Location:.MRI Appointment Type:MRI Spine (FT) Appointment Date:04/06/2024 12:00:00 PM Scheduled Provider: Location:[facility] Appointment Type:Surgery FT Future Scheduled Tests Radiology* MRI Spine Cervical w/o Contrast 04/06/24 * MRI Spine Lumbar w/o Contrast 04/06/24 * MRI Spine Thoracic w/o Contrast 04/06/24 [facility] Evaluation note* Neurological: [id number] 5/5 except hg/io4+ble 5/5incision cdiHead/Neck: Ox3, awake, alertBUE 5 prox, HG/IO4+BLE HF/KE/DF/PF/EHL 5 [facility] Constitutional: in no acute distressSkin: Well perfusedEyes: OU 3RHead/Neck: atraumatic, normocephal icRespiratory/Thorax: airway intact, good chest expansionCardiovascular: normal rate, regular rhythmGastrointestinal: non-tenderNeurological: NAD, A&Va5Fjfejkq Nerves II-XII: PERRL, EOMI, Face symmetric, Facial SILT, Palate/Tongue midline and symmetric, shoulder shrugs symmetric, hearing intact to finger rubs bilaterallyMotor: RUE D5, B5, T5, HG5, IO5LUE D5, B5, T5, HG5, IO5RLE HF 4+, KE4+, PF4-, DF3LLE HF 4+, KE4+, PF3, DF4-Sensation: SILT throughout all extremitiesPsychological: mood appropriate [facility] Diagnosis Chronic low back pain, unspecified back pain laterality, unspecified whether sciatica present- Primary Nausea in adult documented in this encounter [facility]* Diagnosis Intrinsic sphincter deficiency (ISD)- Primary Psychophysiological insomnia Persistent disorder of initiating or maintaining sleep Encounter for medication management Dependence on wheelchair Pressure injury of skin of buttock, unspecified injury stage, unspecified laterality documented in this encounter [facility] HealthcareEvaluation note* Diagnosis Chronic low back pain, unspecified back pain laterality, unspecified whether sciatica present [facility] Narrative No data available for this section [facility] Discharge instructions* Activity:activity as tolerated. May [...] Certification:Home Care Services Needed: yesSkilled Disciplines Ordered: RN/MARKET RESEARCH INTERVIEWER, PT, OTFace to Face Encounter Completed: yesDate of Encounter: [id number] Necessity for Homecare (based on clinical findings): [...] washing dishes, & loading the dryer or instruction librarian until cleared by MD. * Wound Care:Inspect [...] - Neurosurgeon:Physician/Dept/Service: NeurosurgeonDr Josephuled Date/Time: 08-Jan-2021 10:40Location: [facility], [facility] [address] [place], [place]Phone Number: [phone]: 2 week postop/wound check visit; Bring Insurance Card and Photo ID [facility] No data available for this section [facility] InstructionsNot on filedocumented in this encounter [facility] No data available for this section [facility] reason for referral (narrative) , urinary incontinence, neurogenic bladder, open bladder neck, possible SP tube placement Referred by: Zachery HARKINS, Danya Rhodes [facility] Reason for referral (narrative)* Consultation (Routine) - Authorized Specialty Diagnoses / Procedures Referred By Pablo saavdera Referred To Contact Wound Care Diagnoses Pressure injury of skin of buttock, unspecified injury stage, unspecified laterality Procedures LA OFFICE/OUTPATIENT [facility] 60 MINUTES Genny Orosco NP [address] [place] [phone] Pérez Pederson MD [address], [place] [address] Referral ID Status Reason Start Date Expiration Date Visits Requested Visits Authorized [id number] Authorized Specialty Services Required 05/15/2024 11/11/2024 1 [...] DATE CREATED AUTHOR AUTHOR'S ORGANIZ ATION 06/20/2019 [facility] DATE CREATED AUTHOR AUTHOR'S ORGANIZ ATION 07/26/2019 [facility] DATE CREATED AUTHOR AUTHOR'S ORGANIZ ATION 12/29/2020 [facility] DATE CREATED AUTHOR AUTHOR'S ORGANIZ ATION 09/16/2021 [facility] DATE CREATED AUTHOR AUTHOR'S ORGANIZ ATION 11/25/2021 [facility] DATE CREATED AUTHOR AUTHOR'S ORGANIZ ATION 12/10/[address] [facility] DATE CREATED AUTHOR AUTHOR'S ORGANIZ ATION 08/06/2022 [facility] DATE CREATED AUTHOR AUTHOR'S ORGANIZ ATION 01/17/2023 [facility] DATE CREATED AUTHOR AUTHOR'S ORGANIZ ATION 06/09/2023 [facility] DATE CREATED AUTHOR AUTHOR'S ORGANIZ ATION 12/29/2023 [facility] DATE CREATED AUTHOR AUTHOR'S ORGANIZ ATION 05/15/2024 [facility] dical Specialists EPIC <item><item> Privacy Markings [...] Care Team (unrecognized sect ion and content) Public Policy Analyst Relationship Specialty Start Date End Date Shaikh Obrien MD PCP - General Internal Medicine 08/05/23 Public Policy Analyst Relationship Specialty Start Date End Date Shaikh Obrien MD PCP - General Internal Medicine 11/15/22 Public Policy Analyst Relationship Specialty Start Date End Date Unallocated, Nilo Juarez MD [address] [place] [address] PCP - General Family Medicine 06/04/24 Genny Orosco NP [address] [place] [address] Nurse Practitioner Family Medicine 04/12/24 Public Policy Analyst Relationship Specialty Start Date End Date Kostas Ching MD [address] [place] [phone] PCP - General Family Medicine 04/12/24 Genny Orosco NP [address] [place] [phone] Nurse Practitioner Family Medicine 04/12/24 Public Policy Analyst Relationship Specialty Start Date End Date Kostas Ching MD [address] [place] [phone] PCP - General Family Medicine 04/12/24 Genny Orosco NP [address] [place] [phone] Nurse Practitioner Family Medicine 04/12/24 Public Policy Analyst Relationship Specialty Start Date End Date Kostas Ching MD [address] [place] [phone] PCP - General Family Medicine 04/12/24 Genny Orosco NP [address] [place] [phone] Nurse Practitioner Family Medicine 04/12/24 Public Policy Analyst Relationship Specialty Start Date End Date Kostas Ching MD [address] [place] [phone] PCP - General Family Medicine 04/12/24 Genny Orosco NP [address] [place] [phone] Nurse Practitioner Family Medicine 04/12/24 Reason for [...] BE BASED ON THE PRIMARY CLINICAL RECORDS. [employer] [facility]. provides no warranty or guarantee of the accuracy or completeness of information in this document.
--- NOTE | 2024-09-01 06:16 | ECG_ITS ---
The [facility] Test Date: 2024-09-01 Pat Name: MORALES LEE Department: Room: - Gender: Female Tie Maker: : 1975 Requested By: SHAIKH BIN Order Number: [id number] Reading MD: JHON GIRARD Measurements Intervals [place] Rate: 82 P: 30 NH: 158 QRS: 6 QRSD: 86 T: 30 QT: 390 QTc: 429 Interpretive Statements 1100 Sinus rhythm 8102 Low QRS voltage in chest leads 9150 abnormal ECG Compared to ECG 07/15/2024 05:39:39 Myocardial infarct finding now present Low QRS voltage now present Electronically Signed On 09-02-2024 7:42:57 EST by JHON GIRARD
--- NOTE | 2024-09-01 06:16 | XR_ITS ---
The [address] [address] Patient Name: MORALES LEE MRN: [id number] date: 1975 Sex: F Assigned Patient Location: ER Current Patient Location: ER Accession/Order Number: [id number] Exam Date: 09/01/2024 06:45 Report Date: 09/01/2024 07:22 At the request of: RAND MCGOVERN Procedure: XR foot LT min 3V EXAM: XR foot LT min 3V HISTORY: Foot infection COMPARISON: None. TECHNIQUE: 4 views left foot. FINDINGS: There is extensive soft tissue swelling of the left foot. There is skin irregularity along the dorsum of the left foot. There is marked osteopenia. There is no acute displaced fracture or dislocation of the left foot. There is no cortical destruction or periostitis. There is mild osteoarthritis of the left hindfoot, midfoot, and forefoot. There is spurring at the medial and lateral malleoli. There are some dystrophic calcifications within the lateral soft tissues of the left lower leg/ankle. There is a single linear metallic density/clip at the left hindfoot. XR/XR foot LT min 3V IMPRESSION: 1. Extensive soft tissue swelling of the left foot with skin irregularity along its dorsum. Correlate with physical examination to exclude any open wound. Findings likely represent cellulitis. 2. No acute fracture or dislocation of the left foot identified. Evaluation for nondisplaced fractures limited given the underlying osteopenia. 3. No radiographic findings of acute osteomyelitis. 4. Osteoarthritis. If there is clinical suspicion for osteomyelitis, triple phase nuclear medicine bone scan may be useful for further evaluation. Electronically authenticated by: BOONE MUNROE Date: 09/01/2024 07:22
--- NOTE | 2024-09-01 06:22 | ED_ITS ---
HPI - Extremity Problem General Chief complaint: Extremity Problem, Nontraumatic Stated complaint: cellulitiis Time Seen by Provider: 09/01/24 06:11 Source: patient Mode of arrival: ambulance Limitations: physical limitation Limitations comment: Very red, swollen, and painful BLE History of Present Illness HPI Narrative: 49-year-old female presents to the emergency department for redness and swelling and blistering to her left foot. She had been admitted to this hospital within the past week and was given IV vancomycin and IV Levaquin and was seen by podiatry. She was ultimately discharged home on Levaquin and doxycycline but she states over the past day or 2 its gotten much worse and now she has a huge blister. No known fever. Related Data Home Medications ?Medication ?Instructions ?Recorded ?Confirmed buprenorphine 8 mg-naloxone 2 mg 1 film sublingual Q8H 03/01/23 09/01/24 sublingual film diazepam 5 mg tablet 5 mg PO Q8H PRN anxiety 03/30/23 09/01/24 gabapentin 800 mg tablet 800 mg PO TID 03/30/23 09/01/24 tizanidine 4 mg tablet 4 mg PO Q8H PRN muscle spasticity 03/30/23 09/01/24 Previous Rx's ?Medication ?Instructions ?Recorded nystatin 100,000 unit/gram topical 1 applic topical BID #30 grams 07/15/24 powder doxycycline hyclate 100 mg tablet 100 mg PO BID 10 days #20 tabs 08/28/24 levofloxacin 750 mg tablet 750 mg PO DAILY 7 days #7 tabs 08/28/24 Allergies Allergy/AdvReac Type Severity Reaction Status Date / Time codeine Allergy Severe rash Verified 07/15/24 05:16 Penicillins Allergy Severe Anaphylaxis Verified 07/15/24 05:16 quetiapine (From Seroquel) Allergy Severe Seizure Verified 07/15/24 05:16 Review of Systems ROS Narrative A ten point review of systems is negative except as noted above. [facility] Medical History (Updated 09/01/24 @ 06:25 by Duglas Hodgson MD) 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 (ICD-10) Ulcer of left heel and midfoot, limited to breakdown of skin (~08/27/24) ?L97.421 - Non-pressure chronic ulcer of left heel and midfoot limited to breakdown of skin (ICD-10) Opioid use disorder in remission ?F11.91 - Opioid use, unspecified, in remission (ICD-10) Indwelling Alvares catheter present ?Z97.8 - Presence of other specified devices (ICD-10) Accidental fall ?W19.XXXA - Unspecified fall, initial encounter (ICD-10) Pressure ulcer ?L89.90 - Pressure ulcer of unspecified site, unspecified stage (ICD-10) Cellulitis ?L03.90 - Cellulitis, unspecified (ICD-10) Urinary tract infection ?N39.0 - Urinary tract infection, site not specified (ICD-10) Urinary catheter (Alvares) change required ?Z46.6 - Encounter for fitting and adjustment of urinary device (ICD-10) Constipation ?K59.00 - Constipation, unspecified (ICD-10) Alvares catheter problem ?T83.9XXA - Unspecified complication of genitourinary prosthetic device, implant and graft, initial encounter (ICD-10) Drug-seeking behavior ?Z76.5 - Malingerer [conscious simulation] (ICD-10) UTI (urinary tract infection) ?N39.0 - Urinary tract infection, site not specified (ICD-10) Gastritis ?K29.70 - Gastritis, unspecified, without bleeding (ICD-10) Nausea & vomiting ?R11.2 - Nausea with vomiting, unspecified (ICD-10) Pressure sore ?L89.90 - Pressure ulcer of unspecified site, unspecified stage (ICD-10) Retention of urine, unspecified ?R33.9 - Retention of urine, unspecified (ICD-10) Decubital ulcer ?L89.90 - Pressure ulcer of unspecified site, unspecified stage (ICD-10) Swollen leg ?M79.89 - Other specified soft tissue disorders (ICD-10) Bronchitis ?J40 - Bronchitis, not specified as acute or chronic (ICD-10) Alvares catheter problem ?T83.9XXA - Unspecified complication of genitourinary prosthetic device, implant and graft, initial encounter (ICD-10) Vomiting ?R11.10 - Vomiting, unspecified (ICD-10) UTI (urinary tract infection) ?N39.0 - Urinary tract infection, site not specified (ICD-10) Gastritis ?K29.70 - Gastritis, unspecified, without bleeding (ICD-10) Candidal intertrigo ?B37.2 - Candidiasis of skin and nail (ICD-10) Leukocytosis ?D72.829 - Elevated white blood cell count, unspecified (ICD-10) Chronic back pain ?M54.9 - Dorsalgia, unspecified (ICD-10) ?G89.29 - Other chronic pain (ICD-10) Fecal incontinence ?R15.9 - Full incontinence of feces (ICD-10) Urinary incontinence ?R32 - Unspecified urinary incontinence (ICD-10) Wheelchair dependence ?Z99.3 - Dependence on wheelchair (ICD-10) Cord compression myelopathy ?G95.20 - Unspecified cord compression (ICD-10) Surgical History (Updated 08/26/24 @ 12:29 by Shaikh Micah MD) History of back surgery ?Z98.890 - Other specified postprocedural states (ICD-10) Chronic suprapubic catheter ?Z93.59 - Other cystostomy status (ICD-10) Social History (Updated 08/26/24 @ 12:29 by Shaikh Micah MD) Within the past year, how often did you have a drink containing alcohol: never Score interpretation: A score less than 3 is consistent with normal alcohol co nsumption. Smoking status: Current every day smoker Non-prescribed substance use: former substance user Highest level of school completed/degree received: GED or equivalent Little interest or pleasure in doing things: not at all Feeling down, depressed, or hopeless: not at all Exam Narrative Exam Narrative: Nurses note and vital signs reviewed and patient is not hypoxic. General: The patient appears in no acute distress but she appears fatigued. Skin: Warm, dry, no pallor noted. There is no rash noted. Head: Normocephalic, atraumatic Eye: Normal conjunctiva, no drainage Ears, Nose, Mouth, and Throat: oral mucosa is moist. Nares patent. Cardiovascular: Regular Rate and Rhythm Respiratory: Patient is in no distress, no accessory muscle use, lungs are clear to auscultation, no wheezing, rales or rhonchi GI: Soft and nontender Musculoskeletal: Both feet are erythematous with the erythema extending onto the lower leg bilaterally. The redness and swelling is more significant on the left foot and most of the left foot is covered in a blister with yellow discoloration. Neurological: A&O, normal speech Psychiatric: Cooperative Constitutional Vital Signs, click to edit/add: Last Vital Signs Temp 97.7 F 09/01/24 06:07 Pulse 82 09/01/24 06:07 Resp 16 09/01/24 06:07 BP 83/61 L 09/01/24 06:07 Pulse Ox 96 09/01/24 06:07 O2 Del Method Room Air 09/01/24 06:07 Course Vital Signs Vital signs: Vital Signs Temperature 97.7 F 09/01/24 06:07 Pulse Rate 82 09/01/24 06:07 Respiratory Rate 16 09/01/24 06:07 Blood Pressure 83/61 L 09/01/24 06:07 Pulse Oximetry 96 09/01/24 06:07 Oxygen Delivery Method Room Air 09/01/24 06:07 Temperature 97.7 F 09/01/24 06:07 Pulse Rate 82 09/01/24 06:07 Respiratory Rate 16 09/01/24 06:07 Blood Pressure 83/61 L 09/01/24 06:07 Pulse Oximetry 96 09/01/24 06:07 Oxygen Delivery Method Room Air 09/01/24 06:07 MDM - Extremity (Nontraumatic) MDM Narrative Medical decision making narrative: Tests are ordered and the patient is signed out to Dr. Jacobson at change of shift. She was started on IV vancomycin and she will need to be admitted with a podiatry consult. Differential Diagnosis Differential diagnosis: Likely other (Cellulitis, abscess, osteomyelitis) Discharge Plan Discharge Chief Complaint: Extremity Problem, Nontraumatic Clinical Impression: Cellulitis of foot, left Patient Disposition: Still a Patient Prescriptions / Home Meds: No Action diazepam 5 mg tablet 5 mg PO Q8H PRN (Reason: anxiety) gabapentin 800 mg tablet 800 mg PO TID tizanidine 4 mg tablet 4 mg PO Q8H PRN (Reason: muscle spasticity) buprenorphine-naloxone 8-2 mg film 1 film sublingual Q8H nystatin 100,000 unit/gram powder 1 applic topical BID Qty: 30 0RF levofloxacin 750 mg tablet 750 mg PO DAILY 7 Days Qty: 7 0RF doxycycline hyclate 100 mg tablet 100 mg PO BID 10 Days Qty: 20 0RF Print Language: Croatian Referrals: Shaikh Obrien MD [Primary Care Provider] - 1 week
--- NOTE | 2024-09-01 06:45 | PC.NURSE ---
Lab in to draw BC. Will hang ATB when this is complete and the XR is dine. XR waiting in the [facility].
[2024-09-01 06:53] LABS: Basophils Absolute Auto 0.1 10^3/uL (0.0-0.1); Basophils Percent Auto 0.5 % (0.2-2.0); Eosinophils Absolute Auto 0.2 10^3/uL (0.0-0.7); Eosinophils Percent Auto 1.3 % (0.9-7.0); Hematocrit 44.6 % (36.0-48.0); Hemoglobin 14.4 g/dL (12.0-16.0); Immature Granulocytes Abs Auto 0.37 10^3/uL (0.00-0.03); Immature Granulocytes Pct Auto 2.5 % (0.0-0.5); Lymphocytes Absolute Auto 1.9 10^3/uL (1.2-3.8); Mean Corpuscular HGB Conc 32.3 g/dL (29.9-35.2); Mean Corpuscular Hemoglobin 27.2 pg (26.7-34.0); Mean Corpuscular Volume 84.3 fL (81.0-99.0); Mean Platelet Volume 9.1 fL (9.5-13.5); Monocytes Absolute Auto 0.6 10^3/uL (0.3-0.8); Monocytes Percent Auto 4.1 % (1.7-12.0); Neutrophils Absolute Auto 11.6 10^3/uL (1.4-6.5); Neutrophils Percent Auto 78.6 % (43.0-75.0); Platelet Count 382 10^3/uL (150-450); Red Blood Count 5.29 10^6/uL (4.20-5.40); Red Cell Distribution Width 16.1 % (11.0-15.0); White Blood Count 14.8 10^3/uL (4.0-11.0)
[2024-09-01] MEDS: VANCOMYCIN HCL 1,250 MG in 0.9 % SODIUM CHLORIDE 250 ML 166.667 MG IV (07:01)
[2024-09-01 07:15] LABS: Anion Gap 11.9; BUN Creatinine Ratio 8.6; C Reactive Protein 6.03 mg/dL (<=0.50); Calcium 9.1 mg/dL (8.5-10.1); Carbon Dioxide 29.4 mmol/L (21.0-32.0); Chloride 103 mmol/L (98-107); Estimated GFR (African America >60 (>=60 mL/min/1.73m^2); Estimated GFR (Non-African Ame >60 (>=60 mL/min/1.73m^2); Glucose 138 mg/dL (74-106); Potassium 4.3 mmol/L (3.5-5.1); Sodium 140 mmol/L (136-145)
[2024-09-01 07:16] LABS: Erythrocyte Sedimentation Rate 116 mm/hr (<=30)
[2024-09-01] MEDS: HYDROMORPHONE HCL 1 MG/ML CARTRIDGE IV (07:49)
[2024-09-01] MEDS: ONDANSETRON PF 4 MG/2 ML VIAL IV (07:49)
--- NOTE | 2024-09-01 08:41 | PC.NURSE ---
phone report given to MERA Mckinney.
--- OUTSIDE RECORDS SUMMARY | 2024-09-01 08:49 | XMS_ITS | CCD ---
Author Organization [facility] Care Team Providers Care Fiscal Specialist Name Role Phone Required, No Pcp Unavailable Unavailable Lex Frederick Unavailable None, No PCP Unavailable Unavailable Unavailable Unavailable SHAIKH OBRIEN Primary Care Physician [phone] Yony Aguirre Unavailable Unavailable Neurosurgery Unavailable Unavailable [...] Unavailable VETO ., IVON Attending Unavailable [facility] Primary Care Unavailable PATRICK, DEBORAH Aponte Consulting Unavailable [facility] Primary Care Unavailable REINECK, DR ABHINAV Livingston Admitting Unavailabl e REINECK, DR ABHINAV Livingston Consulting Unavailabl e REINECK, DR ABHINAV Livingston Attending Unavailabl e HAY ., DR LOW Admitting Unavailable [facility] Primary Care Unavailable HAY ., DR LOW Attending Unavailable ZIEBER, DR ENRIQUE Santana Consulting Unavailable HAY ., DR LOW Consulting Unavailable LUE ., DANYA M Admitting Unavailable LUE ., DANYA M Attending Unavailable [facility] Primary Care Unavailable [facility] Primary Care Unavailable LUE ., DANYA M Admitting Unavailable LUE ., DANYA M Consulting Unavailable LUE ., DANYA M Attending Unavailable CANDICE MATTA Consulting Unava ilRACHEL Kirk Consulting Unavailable DIAB ., KYRA Admitting Unavailable [facility] Primary Care Unavailable DIAB ., KYRA Attending Unavailable GRECHNY ., BONITA HULL Consulting [facility] Unavailable LUE ., DANYA M Admitting Unavailable LUE ., DANYA M Consulting Unavailable LUE ., DANYA Aponte Attending Unavailable PAY ., DR RODRIGUEZ Admitting Unavailable PAY ., DR RODRIGUEZ Consulting Unavailable [facility] Primary Care Unavailable PAY ., DR RODRIGUEZ Attending Unavailable [facility] Primary Care Unavailable REINECK, DR ABHINAV Livingston Admitting Unavailabl e REINECK, DR ABHINAV Livingston Consulting Unavailabl e REINECK, DR ABHINAV Livingston Attending Unavailabl e KORIN STANLEY Consulting Unavailable Otoniel, Dr. Lex De Los Santos Attending Kiana Obrien MD, [facility] Care Provider [facility] Care Unavailable Lue, Danya Aponte. Attending Unavailable SHAIKH OBRIEN Attending Unavailable SHAIKH OBRIEN Attending Unavailable GENNY OROSCO Attending Unavailabl jacque Obrien MD, [place] Primary Care Provider Kwesi STACY, Genny Unavailable Unallocated , [place] Provider Primary Care Provi marilu Kostas Ching MD Primary Care Provider Allergies Allergy Classification Reported Allergen(s) Allergy Type Date of Onset Reaction(s) Facility Opioid Agonists (1 source) Codeine Drug Allergy Unknown [facility] Penicillins (antibiotic) (1 source) Penicillin Drug Allergy Unknown [facility] QUEtiapine (1 source) QUEtiapine Drug Allergy Unknown [facility] (20 sources) Codeine; Translations: [Codeine] Drug Allergy 6 Hives, Facial Swelling [facility] Work Phone: (20 sources) Penicillins; Translations: [Penicillins] Allergy to drug (finding) Hives, Unknown -[facility] Work Phone: (17 sources) Promethazine; Translations: [promethazine] Drug Allergy 1 Swelling, Unknown [facility] (1 source) QUEtiapine Drug Allergy Seizures [facility] (2 sources) Codeine Drug Allergy 3 [facility] (3 sources) gabapentin; Translations: [Neurontin] Drug Allergy [facility] (1 source) Levamisole Drug Allergy [facility] (1 source) Morphine Drug Allergy 0 [facility] (2 sources) Penicillins Drug allergy (disorder) 3 [facility] (1 source) QUEtiapine Drug Allergy 3 [facility] (8 sources) Penicillins Drug Allergy 3 Hives, GI intolerance [facility] (8 sources) QUEtiapine Drug Allergy 3 Unknown [facility] (1 source) Penicillin Drug Allergy 6 Facial Swelling [facility] (1 source) Phenergan Plain Propensity to adverse reactions to drug 6 Swelling, Facial Swelling [facility] Medications Current Medications Medication Drug Class(es) [...] q12hr, # 2 cap(s), Refills(s) 0, [id number], 156, cm, 07/16/22 10:58:00 EST, Height/Length Dosing, [...] day(s), # 2 tab(s), Refills(s) 0, Pharmacy: [address], 156, cm, 01/06/22 10:53:00 EDT, Height/Length [...] Quantity: 0 Refills: 0 Ordered: 05-Dec-2020 Carole Mcdainel Status: Discontinued Generic Substitution Allowed Valium ; [...] Allowed docusate sodium 50 mg / sennosides, long-term 8.6 mg oral tablet (2 sources) Start: [...] Start: 01-05-2016 take 2 capsules by [facility] three times daily Neurontin 100 mg Cap 200 mg = 2 cap(s), Oral, TID, Refills(s) 0 Start Date: 01/05/16 Status: Ordered Start: 04-17-2015 take 1 capsule by mo [facility] three times daily gabapentin (NEURONTIN) 300 mg [...] 04-17-2015 take 1 capsule by mo [facility] once daily hydrochlorothiazide (MICROZIDE) 12.5 mg capsule [...] tab(s), Refills(s) 3, [facility]: [facility], 156, cm, 02/04/22 15:47:00 EDT, Height/Length Dosing, 78, kg, 02/04/22 15:47:00 EDT, Weight Dosing Start Date: 02/25/22 Status: Ordered nystatin 100 unt/mg topical powder (8 sources) Polyene Antifungal Start: 03-07-2023 Nyamyc [id number] UNIT/GM powder Apply 1 application topically in [...] 30 tab(s), Refills(s) 11, Pharmacy: [facility] #[id number], 156, cm, 07/16/22 10:58:00 EST, Height/Length Dosing, 78, kg, 07/16/22 10:58:00 EST, Weight Dosing Start Date: 10/04/22 Status: Ordered Start: 07-16-2022 take 1 tablet by marlen th once daily oxybutynin 10 mg ER Tab 10 mg = 1 tab(s), Oral, Daily, # 30 tab(s), Refills(s) 11, [facility]acy: [facility] #[id number], 156, cm, 07/16/22 10:58:00 EST, Height/Length Dosing, 78, kg, 07/16/22 10:58:00 EST, Weight Dosing Start Date: 07/16/22 Status: Ordered Start: 03-10-2022 take 1 tablet by marlen th once daily oxybutynin 10 mg ER Tab 10 mg = 1 tab(s), Oral, Daily, # 30 tab(s), Refills(s) 3, Pharmacy: [address], 156, cm, 02/04/22 15:47:00 EDT, Height/Length [...] 07-Jan-2021 Generic Substitution Allowed polyethylene glycol 3350 36724 mg powder for oral solution (3 sources) [...] Daily, # 30 cap(s), Refills(s) 0, Pharmacy: [address], 156, cm, 01/07/22 13:43:00 EDT, Height/Length [...] # 2 cap(s), Refills(s) 0, [facility]: [facility] #[id number], 156, cm, 11/26/22 8:15:00 EDT, Height/Length Dosing, [...] Discontinued Generic Substitution Allowed polyethylene glycol 3350 302722 mg / potassium chloride 2970 mg / sodium bicarbonate 6740 mg / sodium chloride 5860 mg / sodium sulfate 68556 mg powder for oral solution (8 sources) [...] 11-01-2023 Chronic Other aftercare (2 sources) Other shelter (current) drug therapy; Translations: [Other shelter (current) drug therapy] Onset: 2 Episodic Other [...] consultation, please call . ======= Performed at: [facility] [address] [place] [address] [id number] Galley Boy: [facility], Phone: [phone] Specimen Comment: [employer], [employer] FLEX or MAT drug testin Specimen Comment: -Technical component - Data analysis performed at Specimen Comment: [facility], [address] [place] [address] Specimen Comment: [id number]. [phone] Galley Boy James Barrera MD. [facility] [...] [facility] Outside Recordson 12-28-2023 Outside Records [id number] Normal [facility] Physician Orderon 12-14-2023 Physician Order [id number]#1.00TIFF [facility] ED Note-Physicianon 03-14-20 ED Note-Physician [id number]#1.00CD:12 7 Normal [facility] ED Note-Physicianon 01-23-20 ED Note-Physician [id number]#1.00CD:12 7 Normal [facility] ED Note-Physician [id number]#1.00CD:12 7 [facility] Lab Reportson 01-22-2023 Lab Reports [id number]#1.00CD:12 7 [facility] Patient Correspondenceon Patient Correspondence [id number]#1.00CD:12 7 [facility] CULTURE URINEon 01-16-2023 CULTURE URINE Isolate [...] R F Nitrofurantoin <=16 S F Normal [facility] Comment on above: Performed By: #### U MICRO, ERUR #### [facility] [address] [place] [address] Dr. Alfredo Lizama CBC AUTO DIFFon 01-13-2023 BASO # 0.1 103/ul Normal 0.0-0.1 [facility] Comment on above: Performed By: #### U MICRO, ERUR #### [facility] [address] [place] [address] Dr. Alfredo Lizama Basophils/100 WBC (Bld) 0.7 % Normal 0.2-2.0 [facility] Comment on above: Performed By: #### U MICRO, ERUR #### [facility] [address] [place] [address] Dr. Alfredo Lizama EO # 0.3 103/ul Normal 0.0-0.7 [facility] Comment on above: Performed By: #### U MICRO, ERUR #### [facility] [address] [place] [address] Dr. Alfredo Lizama Eosinophils/100 WBC (Bld) 3.2 % Normal 0.9-7.0 [facility] Comment on above: Performed By: #### U MICRO, ERUR #### [facility] [address] [place] [address] Dr. Alfredo Lizama Erythrocyte distribution width (RBC) [Ratio] 13.0 % Normal 11.0-15.0 [facility] Comment on above: Performed By: #### U MICRO, ERUR #### [facility] [address] [place] [address] Dr. Alfredo Lizama Hematocrit (Bld) [Volume fraction] 43.2 % Normal 36.0-48.0 [facility] Comment on above: Performed By: #### U MICRO, ERUR #### [facility] [address] [place] [address] Dr. Alfredo Lizama Hemoglobin (Bld) [Mass/Vol] 14.1 g/dL Normal 12.0-16.0 [facility] Comment on above: Performed By: #### U MICRO, ERUR #### [facility] [address] [place] [address] Dr. Alfredo Lizama IG # 0.02 10e3/ul Normal 0.00-0.03 [facility] Comment on above: Performed By: #### U MICRO, ERUR #### [facility] [address] [place] [address] Dr. Alfredo Lizama IG % 0.2 % Normal 0.0-0.5 [facility] Comment on above: Performed By: #### U MICRO, ERUR #### [facility] [address] [address] [address] Alfredo Lizama LYMPH # 3.0 103/ul Normal 1.2-3.8 [facility] Comment on above: Performed By: #### U MICRO, ERUR #### [facility] [address] [place] [address] Dr. Alfredo Lizama Lymphocytes/100 WBC (Bld) 35.6 % Normal 20.5-60.0 [facility] Comment on above: Performed By: #### U MICRO, ERUR #### [facility] [address] [place] [address] Dr. Alfredo Lizama MANUAL DIFF REQ NO Normal [facility] Comment on above: Performed By: #### U MICRO, ERUR #### [facility] [address] [place] [address] Dr. Alfredo Lizama MCH (RBC) [Entitic mass] 29.4 pg Normal 26.7-34.0 [facility] Comment on above: Performed By: #### U MICRO, ERUR #### [facility] [address] [place] [address] Dr. Alfredo Lizama MCHC (RBC) [Mass/Vol] 32.6 g/dL Normal 29.9-35.2 [facility] Comment on above: Performed By: #### U MICRO, ERUR #### [facility] [address] [place] [address] Dr. Alfredo Lizama MCV (RBC) [Entitic vol] 90.0 fL Normal 81.0-99.0 [facility] Comment on above: Performed By: #### U MICRO, ERUR #### [facility] [address] [place] [address] Dr. Alfredo Lizama MONO # 0.4 103/ul Normal 0.3-0.8 [facility] Comment on above: Performed By: #### U MICRO, ERUR #### [facility] [address] [place] [address] Dr. Alfredo Lizama Monocytes/100 WBC (Bld) 4.8 % Normal 1.7-12.0 [facility] Comment on above: Performed By: #### U MICRO, ERUR #### [facility] [address] [address] [address] Alfredo Lizmaa NEUT # 4.7 103/ul Normal 1.4-6.5 [facility] Comment on above: Performed By: #### U MICRO, ERUR #### [facility] [address] [address] [address] Alfredo Lizama Neutrophils/100 WBC (Bld) 55.5 % Normal 43.0-75.0 [facility] Comment on above: Performed By: #### U MICRO, ERUR #### [facility] [address] [address] [address] Alfredo Lizama Platelet mean volume (Bld) [Entitic vol] 9.5 fL Normal 9.5-13.5 [facility] Comment on above: Performed By: #### U MICRO, ERUR #### [facility] [address] [address] [address] Alfredo Lizama PLT 267 103/ul Normal 150-450 [facility] Comment on above: Performed By: #### U MICRO, ERUR #### [facility] [address] [place] [address] Dr. Alfredo Lizama RBC 4.80 106/ul Normal 4.20-5.40 [facility] Comment on above: Performed By: #### U MICRO, ERUR #### [facility] [address] [address] [address] Alfredo Lizama WBC 8.5 103/ul Normal 4.0-11.0 [facility] Comment on above: Performed By: #### U MICRO, ERUR #### [facility] [address] [address] [address] Alfredo Lizama ER URINE PROFILEon 3 Bilirubin Ql (U) Negative Normal NEGATIVE [facility] Comment on above: Performed By: #### E RUR UMICRO #### [facility] [address] [place] [address] Dr. Alfredo Lizama Clarity (U) CLOUDY Abnormal CLEAR [facility] Comment on above: Performed By: #### Jacque ESTRADA UMICRO #### [facility] [address] [place] [address] Dr. Alfredo Lizama Color (U) YELLOW Normal YELLOW [facility] Comment on above: Performed By: #### Jacque ESTRADA UMICRO #### [facility] [address] [place] [address] Dr. Alfredo Lizama ERUAHD A micrscopic examina tion will be performed if indicated. Normal [facility] Comment on above: Performed By: #### Jacque ESTRADA UMICRO #### [facility] [address] [place] [address] Dr. Alfredo Lizama Glucose Ql (U) Negative Normal NEGATIVE [facility] Comment on above: Performed By: #### Jacque ESTRADA UMICRO #### [facility] [address] [place] [address] Dr. Alfredo Lizama Hemoglobin Ql (U) MODERATE Abnormal NEGATIVE [facility] Comment on above: Performed By: #### Jacque ESTRADA UMICRO #### [facility] [address] [place] [address] Dr. Alfredo Lizama Ketones Ql (U) TRACE Abnormal NEGATIVE [facility] Comment on above: Performed By: #### Jacque ESTRADA UMICRO #### [facility] [address] [place] [address] Dr. Alfredo Lizama LEUKOCYTES SMALL Abnormal NEGATIVE [facility] Comment on above: Performed By: #### Jacque ESTRADA UMICRO #### [facility] [address] [place] [address] Dr. Alfredo Lizama Nitrite Ql (U) Negative Normal NEGATIVE [facility] Comment on above: Performed By: #### Jacque ESTRADA UMICRO #### [facility] [address] [place] [address] Dr. Alfredo Lizama pH (U) 8.0 [pH] Normal 5-9 [facility] Comment on above: Performed By: #### Jacque ESTRADA UMICRO #### [facility] [address] [place] [address] Dr. Alfredo Lizama Protein (U) [Mass/Vol] 100 mg/dL Abnormal NEGAT LATISHA/ TRACE [facility] Comment on above: Performed By: #### CHINMAY CHAVESRO #### [facility] [address] [place] [address] Dr. Alfredo Lizama SPEC GRAVITY 1.015 Normal 1.005-<=1. 025 [facility] Comment on above: Performed By: #### Jacque ESTRADA UMICRO #### [facility] [address] [place] [address] Dr. Alfredo Lizama UR MICRO IND INDICATED Normal [facility] Comment on above: Performed By: #### CHINMAY CHAVESRO #### [facility] [address] [place] [address] Dr. Alfredo Lizama Urobilinogen Qn (U) 1.0 {Tesha'U}/dL Normal 0.2 - 1. 0 [facility] Comment on above: Performed By: #### CHINMAY CHAVESRO #### [facility] [address] [place] [address] Dr. Alfredo Lizama PROF CHEM 8 (BAS METB)on Anion gap [Moles/Vol] 8.4 mmol/L Normal [facility] Comment on above: Performed By: #### U MICRO, ERUR #### [facility] [address] [place] [address] Dr. Alfredo Lizama Calcium [Mass/Vol] 8.7 mg/dL Normal 8.5-10.1 [facility] Comment on above: Performed By: #### U MICRO, ERUR #### [facility] [address] [place] [address] Dr. Alfredo Lizama Chloride [Moles/Vol] 107 mmol/L Normal 98-107 [facility] Comment on above: Performed By: #### U MICRO, ERUR #### [facility] [address] [place] [address] Dr. Alfredo Lizama CO2 [Moles/Vol] 28.3 mmol/L Normal 21.0-32.0 [facility] Comment on above: Performed By: #### U MICRO, ERUR #### [facility] [address] [address] [address] Alfredo Lizama Creatinine [Mass/Vol] 0.70 mg/dL Normal 0.55-1.02 [facility] Comment on above: Performed By: #### U MICRO, ERUR #### [facility] [address] [address] [address] Alfredo Lizama EGFR-AF TOGOLESE >60 Normal >=60 [facility] Comment on above: Performed By: #### U MICRO, ERUR #### [facility] [address] [address] [address] Alfredo Lizama EGFR-NON AF TOGOLESE >60 Normal >=60 [facility] Comment on above: Performed By: #### U MICRO, ERUR #### [facility] [address] [address] [address] Alfredo Lizama Glucose [Mass/Vol] 97 mg/dL Normal 74-106 [facility] Comment on above: Performed By: #### U MICRO, ERUR #### [facility] [address] [address] [address] Alfredo Lizama Potassium [Moles/Vol] 3.7 mmol/L Normal 3.5-5.1 [facility] Comment on above: Performed By: #### U MICRO, ERUR #### [facility] [address] [address] [address] Alfredo Lizama Sodium [Moles/Vol] 140 mmol/L Normal 136-145 [facility] Comment on above: Performed By: #### U MICRO, ERUR #### [facility] [address] [address] [address] Alfredo Lizama Urea nitrogen [Mass/Vol] 7.0 mg/dL Normal 7.0-18.0 [facility] Comment on above: Performed By: #### U MICRO, ERUR #### [facility] [address] [address] [address] Alfredo Lizama Urea nitrogen/Creatinine [Mass ratio] 10.0 mg/mg Normal [facility] Comment on above: Performed By: #### U MICRO, ERUR #### [facility] [address] [address] [address] Alfredo Lizama URINE MICROSCOPIC ONLYon AMORPHOUS CRYSTALS FEW Normal [facility] Comment on above: Performed By: #### Jacque ESTRADA UMICRO #### [facility] [address] [place] [address] Dr. Alfredo Lizama BACTERIA LARGE Abnormal NONE SEEN [facility] Comment on above: Performed By: #### Jacque ESTRADA UMICRO #### [facility] [address] [place] [address] Dr. Alfredo Lizama Bacteria identified Cx Nom (U) INDICATED Normal [facility] Comment on above: Performed By: #### Jacque ESTRADA UMICRO #### [facility] [address] [place] [address] Dr. Alfredo Lizama CAST NONE SEEN Normal NONE SEEN [facility] Comment on above: Performed By: #### Jacque ESTRADA UMICRO #### [facility] [address] [place] [address] Dr. Alfredo Lizama Crystals LM Nom (Urine sed) SEEN Abnormal NONE SEEN [facility] Comment on above: Performed By: #### Jacque ESTRADA UMICRO #### [facility] [address] [place] [address] Dr. Alfredo Lizama Epithelial cells LM Ql (Urine sed) RARE Normal NONE SEEN /RARE [facility] Comment on above: Performed By: #### Jacque ESTRADA UMICRO #### [facility] [address] [place] [address] Dr. Alfredo Lizama MUCOUS NONE SEEN Normal NONE SEEN [facility] Comment on above: Performed By: #### Jacque ESTRADA UMICRO #### [facility] [address] [place] [address] Dr. Alfredo Lizama RBC 2-5 Abnormal 0-2 [facility] Comment on above: Performed By: #### Jacque ESTRADA UMICRO #### [facility] [address] [place] [address] Dr. Alfredo Lizama TRIPLE PHOS CRYSTALS FEW Normal [facility] Comment on above: Performed By: #### LINDA CHAVES #### [facility] [address] [address] [address] Alfredo Lizama WBC 75-100 Abnormal NONE SEEN [facility] Comment on above: Performed By: #### LINDA CHAVES #### [facility] [address], [place] [address] Dr. Alfredo Lizama Patient Letter FTon 2022 Patient Letter [facility] (Inserted Image. Shelly ble to display) January 10, 2023 MORALES LEE [address] [place] [address] MORALES LEE 1975 Dear Morales, I am corresponding with you by certified mail because of repeat non compliance. You missed your catheter exchange appointment on 12/31/22. It is recommended your Alvares catheter be exchanged every 4 weeks to prevent encrustation and infection. Also you were referred to Dr Zhang at [facility] for further evaluation regarding your condition [...] Danya Bingham MD [facility] [address] [facility], [place] [address] [facility] CULTURE URINEon 12-25-2022 CULTURE URINE [...] Trimethoprim/Sulfamethoxa zole <=20 S F Normal [facility] Comment on above: Performed By: #### U MICRO, ERUR #### [facility] [address] [place] [address] Dr. Alfredo Lizama AMYLASEon 11-09-2022 Amylase [Catalytic activity/Vol] 14 U/L Critically low 25-115 [facility] Comment on above: Performed By: #### U MICRO, ERUR #### [facility] [address] [place] [address] Dr. Alfredo Lizama CBC AUTO DIFFon 11-09-2022 BASO # 0.1 103/ul Normal 0.0-0.1 [facility] Comment on above: Performed By: #### U MICRO, ERUR #### [facility] [address] [place] [address] Dr. Alfredo Lizama Basophils/100 WBC (Bld) 0.8 % Normal 0.2-2.0 [facility] Comment on above: Performed By: #### U MICRO, ERUR #### [facility] [address] [place] [address] Dr. Alfredo Lizama EO # 0.2 103/ul Normal 0.0-0.7 [facility] Comment on above: Performed By: #### U MICRO, ERUR #### [facility] [address] [place] [address] Dr. Alfredo Lizama Eosinophils/100 WBC (Bld) 2.5 % Normal 0.9-7.0 [facility] Comment on above: Performed By: #### U MICRO, ERUR #### [facility] [address] [place] [address] Dr. Alfredo Lizama Erythrocyte distribution width (RBC) [Ratio] 12.7 % Normal 11.0-15.0 [facility] Comment on above: Performed By: #### U MICRO, ERUR #### [facility] [address] [place] [address] Dr. Alfredo Lizama Hematocrit (Bld) [Volume fraction] 46.3 % Normal 36.0-48.0 [facility] Comment on above: Performed By: #### U MICRO, ERUR #### [facility] [address] [place] [address] Dr. Alfredo Lizama Hemoglobin (Bld) [Mass/Vol] 15.9 g/dL Normal 12.0-16.0 [facility] Comment on above: Performed By: #### U MICRO, ERUR #### [facility] [address] [place] [address] Dr. Alfredo Lizama IG # 0.02 10e3/ul Normal 0.00-0.03 [facility] Comment on above: Performed By: #### U MICRO, ERUR #### [facility] [address] [place] [address] Dr. Alfredo Lizama IG % 0.2 % Normal 0.0-0.5 [facility] Comment on above: Performed By: #### U MICRO, ERUR #### [facility] [address] [place] [address] Dr. Alfredo Lizama LYMPH # 2.6 103/ul Normal 1.2-3.8 [facility] Comment on above: Performed By: #### U MICRO, ERUR #### [facility] [address] [place] [address] Dr. Alfredo Lizama Lymphocytes/100 WBC (Bld) 31.3 % Normal 20.5-60.0 [facility] Comment on above: Performed By: #### U MICRO, ERUR #### [facility] [address] [place] [address] Dr. Alfredo Lizama MANUAL DIFF REQ NO Normal [facility] Comment on above: Performed By: #### U MICRO, ERUR #### [facility] [address] [place] [address] Dr. Alfredo Lizama MCH (RBC) [Entitic mass] 29.3 pg Normal 26.7-34.0 [facility] Comment on above: Performed By: #### U MICRO, ERUR #### [facility] [address] [place] [address] Dr. Alfredo Lizama MCHC (RBC) [Mass/Vol] 34.3 g/dL Normal 29.9-35.2 [facility] Comment on above: Performed By: #### U MICRO, ERUR #### [facility] [address] [address] [address] Alfredo Lizama MCV (RBC) [Entitic vol] 85.4 fL Normal 81.0-99.0 [facility] Comment on above: Performed By: #### U MICRO, ERUR #### [facility] [address] [place] [address] Dr. Alfredo Lizama MONO # 0.6 103/ul Normal 0.3-0.8 [facility] Comment on above: Performed By: #### U MICRO, ERUR #### [facility] [address] [place] [address] Dr. Alfredo Lizama Monocytes/100 WBC (Bld) 6.6 % Normal 1.7-12.0 [facility] Comment on above: Performed By: #### U MICRO, ERUR #### [facility] [address] [place] [address] Dr. Alfredo Lizama NEUT # 4.9 103/ul Normal 1.4-6.5 [facility] Comment on above: Performed By: #### U MICRO, ERUR #### [facility] [address] [place] [address] Dr. Alfredo Lizama Neutrophils/100 WBC (Bld) 58.6 % Normal 43.0-75.0 [facility] Comment on above: Performed By: #### U MICRO, ERUR #### [facility] [address] [place] [address] Dr. Alfredo Lizama Platelet mean volume (Bld) [Entitic vol] 9.5 fL Normal 9.5-13.5 [facility] Comment on above: Performed By: #### U MICRO, ERUR #### [facility] [address] [place] [address] Dr. Alfredo Lizama PLT 273 103/ul Normal 150-450 [facility] Comment on above: Performed By: #### U MICRO, ERUR #### [facility] [address] [place] [address] Dr. Alfredo Lizama RBC 5.42 106/ul Critically high 4.20-5.40 [facility] Comment on above: Performed By: #### U MICRO, ERUR #### [facility] [address] [place] [address] Dr. Alfredo Lizama WBC 8.4 103/ul Normal 4.0-11.0 [facility] Comment on above: Performed By: #### U MICRO, ERUR #### [facility] [address] [place] [address] Dr. Alfredo Lizama CULTURE URINEon 11-09-2022 CULTURE URINE Culture Observations : MODERATE GROWTH OF MIXED GENITAL ROSANNA. NO POTENTIAL PATHOGENS SEEN. Normal [facility] Comment on above: Performed By: #### U MICRO, ERUR #### [facility] [address] [place] [address] Dr. Alfredo Lizama ER URINE PROFILEon 3 Bilirubin Ql (U) Negative Normal NEGATIVE [facility] Comment on above: Performed By: #### U MICRO, ERUR #### [facility] [address] [place] [address] Dr. Alfredo Lizama Clarity (U) CLEAR Normal CLEAR [facility] Comment on above: Performed By: #### U MICRO, ERUR #### [facility] [address] [place] [address] Dr. Alfredo Lizama Color (U) LT. YELLOW Normal YELLOW [facility] Comment on above: Performed By: #### U MICRO, ERUR #### [facility] [address] [place] [address] Dr. Alfredo Lizama ERUAHD A micrscopic examina tion will be performed if indicated. Normal [facility] Comment on above: Performed By: #### U MICRO, ERUR #### [facility] [address] [place] [address] Dr. Alfredo Lizama Glucose Ql (U) Negative Normal NEGATIVE [facility] Comment on above: Performed By: #### U MICRO, ERUR #### [facility] [address] [place] [address] Dr. Alfredo Lizama Hemoglobin Ql (U) MODERATE Abnormal NEGATIVE [facility] Comment on above: Performed By: #### U MICRO, ERUR #### [facility] [address] [place] [address] Dr. Alfredo Lizama Ketones Ql (U) Negative Normal NEGATIVE [facility] Comment on above: Performed By: #### U MICRO, ERUR #### [facility] [address] [place] [address] Dr. Alfredo Lizama LEUKOCYTES LARGE Abnormal NEGATIVE [facility] Comment on above: Performed By: #### U MICRO, ERUR #### [facility] [address] [address] [address] Alfredo Lizama Nitrite Ql (U) Negative Normal NEGATIVE [facility] Comment on above: Performed By: #### U MICRO, ERUR #### [facility] [address] [place] [address] Dr. Alfredo Lizama pH (U) 7.0 [pH] Normal 5-9 [facility] Comment on above: Performed By: #### U MICRO, ERUR #### [facility] [address] [place] [address] Dr. Alfredo Lizama SPEC GRAVITY 1.015 Normal 1.005-<=1. 025 [facility] Comment on above: Performed By: #### U MICRO, ERUR #### [facility] [address] [place] [address] Dr. Alfredo Lizama UA PROTEIN Negative Normal NEGATIVE/ TRACE [facility] Comment on above: Performed By: #### U MICRO, ERUR #### [facility] [address] [place] [address] Dr. Alfredo Lizama UR MICRO IND INDICATED Normal [facility] Comment on above: Performed By: #### U MICRO, ERUR #### [facility] [address] [place] [address] Dr. Alfredo Lizama Urobilinogen Qn (U) 0.2 {Tesha'U}/dL Normal 0.2 - 1. 0 [facility] Comment on above: Performed By: #### U MICRO, ERUR #### [facility] [address] [place] [address] Dr. Alfredo Lizama LIPASEon 11-09-2022 Lipase [Catalytic activity/Vol] 34.0 U/L Critically low 73.0-393.0 [facility] Comment on above: Performed By: #### U MICRO, ERUR #### [facility] [address] [place] [address] Dr. Alfredo Lizama PROF 14(COMP METB)on 023 Albumin [Mass/Vol] 4.0 g/dL Normal 3.4-5.0 [facility] Comment on above: Performed By: #### U MICRO, ERUR #### [facility] [address] [place] [address] Dr. Alfredo Lizama Albumin/Globulin [Mass ratio] 1.0 {ratio} Normal [facility] Comment on above: Performed By: #### U MICRO, ERUR #### [facility] [address] [place] [address] Dr. Alfredo Lizama ALP [Catalytic activity/Vol] 206 U/L Critically high 46-116 [facility] Comment on above: Performed By: #### U MICRO, ERUR #### [facility] [address] [place] [address] Dr. Alfredo Lizama ALT [Catalytic activity/Vol] 53 U/L Normal 14-59 [facility] Comment on above: Performed By: #### U MICRO, ERUR #### [facility] [address] [place] [address] Dr. Alfredo Lizama Anion gap [Moles/Vol] 14.5 mmol/L Normal [facility] Comment on above: Performed By: #### U MICRO, ERUR #### [facility] [address] [place] [address] Dr. Alfredo Lizama AST [Catalytic activity/Vol] 55 U/L Critically high 15-37 [facility] Comment on above: Performed By: #### U MICRO, ERUR #### [facility] [address] [place] [address] Dr. Alfredo Lizama Bilirubin [Mass/Vol] 0.7 mg/dL Normal 0.2-1.0 [facility] Comment on above: Performed By: #### U MICRO, ERUR #### [facility] [address] [address] [address] Alfredo Lizama Calcium [Mass/Vol] 9.0 mg/dL Normal 8.5-10.1 [facility] Comment on above: Performed By: #### U MICRO, ERUR #### [facility] [address] [address] [address] Alfredo Lizama Chloride [Moles/Vol] 100 mmol/L Normal 98-107 [facility] Comment on above: Performed By: #### U MICRO, ERUR #### [facility] [address] [place] [address] Dr. Alfredo Lizama CO2 [Moles/Vol] 28.3 mmol/L Normal 21.0-32.0 [facility] Comment on above: Performed By: #### U MICRO, ERUR #### [facility] [address] [place] [address] Dr. Alfredo Lizama Creatinine [Mass/Vol] 0.65 mg/dL Normal 0.55-1.02 [facility] Comment on above: Performed By: #### U MICRO, ERUR #### [facility] [address] [place] [address] Dr. Alfredo Lizama EGFR-AF TOGOLESE >60 Normal >=60 [facility] Comment on above: Performed By: #### U MICRO, ERUR #### [facility] [address] [place] [address] Dr. Alfredo Lizama EGFR-NON AF TOGOLESE >60 Normal >=60 [facility] Comment on above: Performed By: #### U MICRO, ERUR #### [facility] [address] [address] [address] Alfredo Lizama Globulin (S) [Mass/Vol] 3.9 g/dL Normal [facility] Comment on above: Performed By: #### U MICRO, ERUR #### [facility] [address] [place] [address] Dr. Alfredo Lizama Glucose [Mass/Vol] 134 mg/dL Critically high 74-106 [facility] Comment on above: Performed By: #### U MICRO, ERUR #### [facility] [address] [place] [address] Dr. Alfredo Lizama Potassium [Moles/Vol] 3.8 mmol/L Normal 3.5-5.1 [facility] Comment on above: Performed By: #### U MICRO, ERUR #### [facility] [address] [place] [address] Dr. Alfredo Lizama Protein [Mass/Vol] 7.9 g/dL Normal 6.4-8.2 [facility] Comment on above: Performed By: #### U MICRO, ERUR #### [facility] [address] [place] [address] Dr. Alfredo Lizama Sodium [Moles/Vol] 139 mmol/L Normal 136-145 [facility] Comment on above: Performed By: #### U MICRO, ERUR #### [facility] [address] [place] [address] Dr. Alfredo Lizama Urea nitrogen [Mass/Vol] 7.0 mg/dL Normal 7.0-18.0 [facility] Comment on above: Performed By: #### U MICRO, ERUR #### [facility] [address] [place] [address] Dr. Alfredo Lizama Urea nitrogen/Creatinine [Mass ratio] 10.7 mg/mg Normal [facility] Comment on above: Performed By: #### U MICRO, ERUR #### [facility] [address] [place] [address] Dr. Alfredo Lizama URINE MICROSCOPIC ONLYon BACTERIA TRACE Abnormal NONE SEEN [facility] Comment on above: Performed By: #### U MICRO, ERUR #### [facility] [address] [place] [address] Dr. Alfredo Lizama Bacteria identified Cx Nom (U) INDICATED Normal [facility] Comment on above: Performed By: #### U MICRO, ERUR #### [facility] [address] [place] [address] Dr. Alfredo Lizama CAST NONE SEEN Normal NONE SEEN [facility] Comment on above: Performed By: #### U MICRO, ERUR #### [facility] [address] [place] [address] Dr. Alfredo Lizama Crystals LM Nom (Urine sed) NONE SEEN Normal NONE SEEN [facility] Comment on above: Performed By: #### U MICRO, ERUR #### [facility] [address] [place] [address] Dr. Alfredo Lizama Epithelial cells LM Ql (Urine sed) FEW Abnormal NONE SEEN /RARE [facility] Comment on above: Performed By: #### U MICRO, ERUR #### [facility] [address] [place] [address] Dr. Alfredo Lizama MUCOUS NONE SEEN Normal NONE SEEN [facility] Comment on above: Performed By: #### U MICRO, ERUR #### [facility] [address] [place] [address] Dr. Alfredo Lizama RBC 20-50 Abnormal 0-2 [facility] Comment on above: Performed By: #### U MICRO, ERUR #### [facility] [address] [place] [address] Dr. Alfredo Lizama WBC 20-50 Abnormal NONE SEEN [facility] Comment on above: Performed By: #### U MICRO, ERUR #### [facility] [address] [place] [address] Dr. Alfredo Lizama XR ABD FLAT_UPon 11-09-2022 [...] ENRIQUE LOWE Date: 2022-11-09 11:06 Normal [facility] CULTURE URINEon 10-18-2022 CULTURE URINE Isolate [...] Trimethoprim/Sulfamethoxa zole <=10 S F Normal [facility] Comment on above: Performed By: #### U MICRO, ERUR #### [facility] [address] [place] [address] Dr. Alfredo Lizama ER URINE PROFILEon 3 Bilirubin Ql (U) Negative Normal NEGATIVE [facility] Comment on above: Performed By: #### LINDA CHAVES #### [facility] [address] [place] [address] Dr. Alfredo Lizama Clarity (U) CLEAR Normal CLEAR [facility] Comment on above: Performed By: #### CHINMAY CHAVESRO #### [facility] [address] [place] [address] Dr. Alfredo Lizama Color (U) YELLOW Normal YELLOW [facility] Comment on above: Performed By: #### FER CHAVESICRO #### [facility] [address] [place] [address] Dr. Alfredo RAYMUNDO A micrscopic examina tion will be performed if indicated. Normal [facility] Comment on above: Performed By: #### Jacque ESTRADA UMICRO #### [facility] [address] [place] [address] Dr. Alfredo Lizama Glucose Ql (U) Negative Normal NEGATIVE [facility] Comment on above: Performed By: #### Jacque ESTRADA UMICRO #### [facility] [address] [place] [address] Dr. Alfredo Lizama Hemoglobin Ql (U) LARGE Abnormal NEGATIVE [facility] Comment on above: Performed By: #### Jacque ESTRADA UMICRO #### [facility] [address] [place] [address] Dr. Alfredo Lizama Ketones Ql (U) Negative Normal NEGATIVE [facility] Comment on above: Performed By: #### Jacque ESTRADA UMICRO #### [facility] [address] [place] [address] Dr. Alfredo Lizama LEUKOCYTES LARGE Abnormal NEGATIVE [facility] Comment on above: Performed By: #### Jacque ESTRADA UMICRO #### [facility] [address] [place] [address] Dr. Alfredo Lizama Nitrite Ql (U) Positive Abnormal NEGATIVE [facility] Comment on above: Performed By: #### Jacque ESTRADA UMICRO #### [facility] [address] [place] [address] Dr. Alfredo Lizama pH (U) 6.5 [pH] Normal 5-9 [facility] Comment on above: Performed By: #### FER CHAVESICRO #### [facility] [address] [place] [address] Dr. Alfredo Lizama Protein (U) [Mass/Vol] 100 mg/dL Abnormal NEGAT LATISHA/ TRACE [facility] Comment on above: Performed By: #### Jacque ESTRADA UMICRO #### [facility] [address] [place] [address] Dr. Alfredo Lizama SPEC GRAVITY 1.010 Normal 1.005-<=1. 025 [facility] Comment on above: Performed By: #### CHINMAY CHAVESRO #### [facility] [address] [place] [address] Dr. Alfredo Lizama UR MICRO IND INDICATED Normal [facility] Comment on above: Performed By: #### FER CHAVESICRO #### [facility] [address] [place] [address] Dr. Alfredo Lizama Urobilinogen Qn (U) 1.0 {Tesha'U}/dL Normal 0.2 - 1. 0 [facility] Comment on above: Performed By: #### E RURLINDA #### [facility] [address] [place] [address] Dr. Alfredo Lizama URINE MICROSCOPIC ONLYon BACTERIA MODERATE Abnormal NONE SEEN [facility] Comment on above: Performed By: #### U MICRO, ERUR #### [facility] [address] [place] [address] Dr. Alfredo Lizama Bacteria identified Cx Nom (U) INDICATED Normal [facility] Comment on above: Performed By: #### U MICRO, ERUR #### [facility] [address] [place] [address] Dr. Alfredo Lizama CA OX CRYSTALS RARE Normal [facility] Comment on above: Performed By: #### U MICRO, ERUR #### [facility] [address] [place] [address] Dr. Alfredo Lizama CAST NONE SEEN Normal NONE SEEN [facility] Comment on above: Performed By: #### U MICRO, ERUR #### [facility] [address] [place] [address] Dr. Alfredo Lizama Crystals LM Nom (Urine sed) SEEN Abnormal NONE SEEN [facility] Comment on above: Performed By: #### U MICRO, ERUR #### [facility] [address] [place] [address] Dr. Alfredo Lizama Epithelial cells LM Ql (Urine sed) MODERATE Abnormal NONE SEEN /RARE [facility] Comment on above: Performed By: #### U MICRO, ERUR #### [facility] [address] [place] [address] Dr. Alfredo Lizama MUCOUS TRACE Abnormal NONE SEEN [facility] Comment on above: Performed By: #### U MICRO, ERUR #### [facility] [address] [place] [address] Dr. Alfredo Lizama RBC 20-50 Abnormal 0-2 [facility] Comment on above: Performed By: #### U MICRO, ERUR #### [facility] [address] [place] [address] Dr. Alfredo Lizama WBC 50-75 Abnormal NONE SEEN [facility] Comment on above: Performed By: #### U MICRO, ERUR #### [facility] [address] [place] [address] Dr. Alfredo Lizama Covid-19 PCR ([facility])on 08-06 SARS-CoV-2 (COVID-19) RNA ADRIÁN+probe Ql (Unsp spec) Not detected Normal NOT DETECTED [facility] Comment on above: Result Comment: When [...] for this test is supported by the [place] of [employer] and Human Service's declaration that [...] Performed By: #### U MICRO, ERUR #### [facility] [address] [place] [address] Dr. Alfredo Lizama CBC AUTO DIFFon 08-24-2022 BASO # 0.1 103/ul Normal 0.0-0.1 [facility] Comment on above: Performed By: #### C BC #### [facility] [address] [place] [address] Dr. Alfredo Lizama Basophils/100 WBC (Bld) 0.8 % Normal 0.2-2.0 [facility] Comment on above: Performed By: #### C BC #### [facility] [address] [place] [address] Dr. Alfredo Lizama EO # 0.3 103/ul Normal 0.0-0.7 [facility] Comment on above: Performed By: #### C BC #### [facility] [address] [place] [address] Dr. Alfredo Lizama Eosinophils/100 WBC (Bld) 3.1 % Normal 0.9-7.0 [facility] Comment on above: Performed By: #### C BC #### [facility] [address] [place] [address] Dr. Alfredo Lizama Erythrocyte distribution width (RBC) [Ratio] 13.4 % Normal 11.0-15.0 [facility] Comment on above: Performed By: #### C BC #### [facility] [address] [place] [address] Dr. Alfredo Lizama Hematocrit (Bld) [Volume fraction] 47.2 % Normal 36.0-48.0 [facility] Comment on above: Performed By: #### C BC #### [facility] [address] [place] [address] Dr. Alfredo Lizama Hemoglobin (Bld) [Mass/Vol] 15.6 g/dL Normal 12.0-16.0 [facility] Comment on above: Performed By: #### C BC #### [facility] [address] [place] [address] Dr. Alfredo Lizama IG # 0.02 10e3/ul Normal 0.00-0.03 [facility] Comment on above: Performed By: #### C BC #### [facility] [address] [place] [address] Dr. Alfredo Lizama IG % 0.2 % Normal 0.0-0.5 [facility] Comment on above: Performed By: #### C BC #### [facility] [address] [place] [address] Dr. Alfredo Lizama LYMPH # 4.4 103/ul Critically high 1.2-3.8 [facility] Comment on above: Performed By: #### C BC #### [facility] [address] [place] [address] Dr. Alfredo Lizama Lymphocytes/100 WBC (Bld) 42.3 % Normal 20.5-60.0 [facility] Comment on above: Performed By: #### C BC #### [facility] [address] [place] [address] Dr. Alfredo Lizama MANUAL DIFF REQ NO Normal [facility] Comment on above: Performed By: #### C BC #### [facility] [address] [place] [address] Dr. Alfredo Lizama MCH (RBC) [Entitic mass] 28.8 pg Normal 26.7-34.0 [facility] Comment on above: Performed By: #### C BC #### [facility] [address] [place] [address] Dr. Alfredo Lizama MCHC (RBC) [Mass/Vol] 33.1 g/dL Normal 29.9-35.2 [facility] Comment on above: Performed By: #### C BC #### [facility] [address] [place] [address] Dr. Alfredo Lizama MCV (RBC) [Entitic vol] 87.2 fL Normal 81.0-99.0 [facility] Comment on above: Performed By: #### C BC #### [facility] [address] [place] [address] Dr. Alfredo Lizama MONO # 0.6 103/ul Normal 0.3-0.8 [facility] Comment on above: Performed By: #### C BC #### [facility] [address] [place] [address] Dr. Alfredo Lizama Monocytes/100 WBC (Bld) 5.3 % Normal 1.7-12.0 [facility] Comment on above: Performed By: #### C BC #### [facility] [address] [place] [address] Dr. Alfredo Lizama NEUT # 5.0 103/ul Normal 1.4-6.5 [facility] Comment on above: Performed By: #### C BC #### [facility] [address] [place] [address] Dr. Alfredo Lizama Neutrophils/100 WBC (Bld) 48.3 % Normal 43.0-75.0 [facility] Comment on above: Performed By: #### C BC #### [facility] [address] [address] [address] Alfredo Lizama Platelet mean volume (Bld) [Entitic vol] 9.9 fL Normal 9.5-13.5 [facility] Comment on above: Performed By: #### C BC #### [facility] [address] [place] [address] Dr. Alfreod Lizama PLT 298 103/ul Normal 150-450 [facility] Comment on above: Performed By: #### C BC #### [facility] [address] [address] [address] Alfredo Lizama RBC 5.41 106/ul Critically high 4.20-5.40 [facility] Comment on above: Performed By: #### C BC #### [facility] [address] [place] [address] Dr. Alfredo Lizama WBC 10.3 103/ul Normal 4.0-11.0 [facility] Comment on above: Performed By: #### C BC #### [facility] [address] [place] [address] Dr. Alfredo Lizama PROF CHEM 8 (BAS METB)on Anion gap [Moles/Vol] 14.3 mmol/L Normal [facility] Comment on above: Performed By: #### U MICRO, ERUR #### [facility] [address] [place] [address] Dr. Alfredo Lizama Calcium [Mass/Vol] 9.1 mg/dL Normal 8.5-10.1 [facility] Comment on above: Performed By: #### U MICRO, ERUR #### [facility] [address] [place] [address] Dr. Alfredo Lizama Chloride [Moles/Vol] 99 mmol/L Normal 98-107 [facility] Comment on above: Performed By: #### U MICRO, ERUR #### [facility] [address] [place] [address] Dr. Alfredo Lizama CO2 [Moles/Vol] 29.0 mmol/L Normal 21.0-32.0 [facility] Comment on above: Performed By: #### U MICRO, ERUR #### [facility] [address] [place] [address] Dr. Alfredo Lizama Creatinine [Mass/Vol] 0.70 mg/dL Normal 0.55-1.02 [facility] Comment on above: Performed By: #### U MICRO, ERUR #### [facility] [address] [address] [address] Alfredo Lizama EGFR-AF TOGOLESE >60 Normal >=60 [facility] Comment on above: Performed By: #### U MICRO, ERUR #### [facility] [address] [place] [address] Dr. Alfredo Lizama EGFR-NON AF TOGOLESE >60 Normal >=60 [facility] Comment on above: Performed By: #### U MICRO, ERUR #### [facility] [address] [place] [address] Dr. Alfredo Lizama Glucose [Mass/Vol] 121 mg/dL Critically high 74-106 [facility] Comment on above: Performed By: #### U MICRO, ERUR #### [facility] [address] [address] [address] Alfredo Lizama Potassium [Moles/Vol] 3.3 mmol/L Critically low 3.5-5.1 [facility] Comment on above: Performed By: #### U MICRO, ERUR #### [facility] [address] [place] [address] Dr. Alfredo Lizama Sodium [Moles/Vol] 139 mmol/L Normal 136-145 [facility] Comment on above: Performed By: #### U MICRO, ERUR #### [facility] [address] [address] [address] Alfredo Lizama Urea nitrogen [Mass/Vol] 5.0 mg/dL Critically low 7.0-18. 0 [facility] Comment on above: Performed By: #### U MICRO, ERUR #### [facility] [address] [address] [address] Alfredo Lizama Urea nitrogen/Creatinine [Mass ratio] 7.1 mg/mg Normal [facility] Comment on above: Performed By: #### U MICRO, ERUR #### [facility] [address] [place] [address] Dr. Alfredo Lizama PROTIMEon 08-24-2022 INR Coag (PPP) [Relative time] 0.99 {INR} Normal [facility] Comment on above: Performed By: #### P T, PTT #### [facility] [address] [place] [address] Dr. Alfredo Lizama INR GUIDELINES SEE BELOW Normal [facility] Comment on above: Result Comment: MARY JO RED INR: 2.0 - 3.0 CONDITIONS NOT LISTED BELOW 2.5 - 3.5 FOR PROSTHETIC HEART VALVE REPLACEMENT 2.5 - 3.5 RECURRENT THROMBOSIS Performed By: #### P T, PTT #### [facility] [address] [place] [address] Dr. Alfredo Lizama PT Coag (PPP) [Time] 10.7 s Normal 9.0-11.6 [facility] Comment on above: Performed By: #### P T, PTT #### [facility] [address] [place] [address] Dr. Alfredo Lizama PTTon 08-24-2022 aPTT Coag (Bld) [Time] 31.7 s Normal 22.3-36.2 Th [facility] Comment on above: Performed By: #### P T, PTT #### [facility] [address] [place] [address] Dr. Alfredo Lizama BN SACRUM/COCCYX, MIN 2 [...] 09/20/2019. Thoracolumbar spine radiographs 09/08/2021. ACCESSION NUMBER(S): [id number]; [id number]; [id number] ORDERING CLINICIAN: CANDICE PEREZ FINDINGS: Three views [...] stated. Electronically signed by: GOMEZ JAMA MD [facility] BN SPINE, LUMBOSACRAL; 2 OR [...] 09/20/2019. Thoracolumbar spine radiographs 09/08/2021. ACCESSION NUMBER(S): [id number]; [id number]; [id number] ORDERING CLINICIAN: CANDICE PEREZ FINDINGS: Three views [...] stated. Electronically signed by: GOMEZ JAMA MD [facility] BN SPINE, THORACIC, 3 VIEWSo [...] 09/20/2019. Thoracolumbar spine radiographs 09/08/2021. ACCESSION NUMBER(S): [id number]; [id number]; [id number] ORDERING CLINICIAN: CANDICE HEERSINK FINDINGS: Three views [...] Electronically signed by: GOMEZ JAMA MD Normal [facility] CBC AND DIFFERENTIALon 06-07 % AUTOMATED IMMATURE GRAN 0.2 % Normal 0.0 - 0.9 [facility] Comment on above: Result Comment: Jaleesa ture Granulocyte Count (IG) includes promyelocytes, myelocytes and metamyelocytes but does not include bands. Percent differential counts (%) should be interpreted in the context of the absolute cell counts (cells/L). Performed By: #### R ENAL #### [facility] [address] [place] [address] Basophils (Bld) [#/Vol] 0.09 10*3/uL Normal 0.00 - 0.10 [facility] Comment on above: Performed By: #### R ENAL #### [facility] [address] [place] [address] Basophils/100 WBC (Bld) 1.0 % Normal 0.0 - 2.0 [facility] Comment on above: Performed By: #### R ENAL #### [facility] [address] [place] [address] Eosinophils (Bld) [#/Vol] 0.24 10*3/uL Normal 0.00 - 0.70 [facility] Comment on above: Performed By: #### R ENAL #### [facility] [address] [place] [address] Eosinophils/100 WBC (Bld) 2.6 % Normal 0.0 - 6.0 [facility] Comment on above: Performed By: #### R ENAL #### [facility] [address] [place] [address] Erythrocyte distribution width (RBC) [Ratio] 12.9 % Normal 11.5 - 14.5 [facility] Comment on above: Performed By: #### R ENAL #### [facility] [address] [place] [address] Hematocrit (Bld) [Volume fraction] 48.4 % High 36.0 - 46.0 [facility] Comment on above: Performed By: #### R ENAL #### [facility] [address] [place] [address] Hemoglobin (Bld) [Mass/Vol] 17.1 g/dL High 12.0 - 16.0 [facility] Comment on above: Performed By: #### R ENAL #### [facility] [address] [place] [address] Lymphocytes (Bld) [#/Vol] 2.93 10*3/uL Normal 1.20 - 4.80 [facility] Comment on above: Performed By: #### R ENAL #### [facility] [address] [place] [address] Lymphocytes/100 WBC (Bld) 31.9 % Normal 13.0 - 44.0 [facility] Comment on above: Performed By: #### R ENAL #### [facility] [address] [place] [address] MCHC (RBC) [Mass/Vol] 35.3 g/dL Normal 32.0 - 36.0 [facility] Comment on above: Performed By: #### R ENAL #### [facility] [address] [place] [address] MCV (RBC) [Entitic vol] 85 fL Normal 80 - 100 [facility] Comment on above: Performed By: #### R ENAL #### [facility] [address] [place] [address] Monocytes (Bld) [#/Vol] 0.36 10*3/uL Normal 0.10 - 1.00 [facility] Comment on above: Performed By: #### R ENAL #### [facility] [address] [place] [address] Monocytes/100 WBC (Bld) 3.9 % Normal 2.0 - 10.0 [facility] Comment on above: Performed By: #### R ENAL #### [facility] [address] [place] [address] Neutrophils (Bld) [#/Vol] 5.54 10*3/uL Normal 1.20 - 7.70 [facility] Comment on above: Performed By: #### R ENAL #### [facility] [address] [place] [address] Neutrophils/100 WBC (Bld) 60.4 % Normal 40.0 - 80.0 [facility] Comment on above: Performed By: #### R ENAL #### [facility] [address] [place] [address] NUCLEATED RBC 0.0 /100 WBC Normal 0.0-0.0 [facility] Comment on above: Performed By: #### R ENAL #### [facility] [address] [place] [address] Platelets (Bld) [#/Vol] 365 10*3/uL Normal 150 - 450 [facility] Comment on above: Performed By: #### R ENAL #### [facility] [address] [place] [address] RBC 5.69 x10E12/L High 4.00 - 5.20 [facility] Comment on above: Performed By: #### R ENAL #### [facility] [address] [place] [address] WBC (Bld) [#/Vol] 9.2 10*3/uL Normal 4.4 - 11.3 [facility] Comment on above: Performed By: #### R ENAL #### [facility] [address] [place] [address] COMPREHENSIVE PANELon 2021 Albumin [Mass/Vol] 4.6 g/dL Normal 3.4 - 5.0 [facility] Comment on above: Performed By: #### R ENAL #### [facility] [address] [place] [address] ALP [Catalytic activity/Vol] 192 U/L High 33 - 110 [facility] Comment on above: Performed By: #### R ENAL #### [facility] [address] [place] [address] ALT [Catalytic activity/Vol] 33 U/L Normal 7 - 45 [facility] Comment on above: Result Comment: Melly ents treated with Sulfasalazine may generate falsely decreased results for ALT. Performed By: #### R ENAL #### [facility] [address] [place] [address] Anion gap [Moles/Vol] 16 mmol/L Normal 10 - 20 [facility] Comment on above: Performed By: #### R ENAL #### [facility] [address] [place] [address] AST [Catalytic activity/Vol] 51 U/L High 9 - 39 [facility] Comment on above: Performed By: #### R ENAL #### [facility] [address] [place] [address] Bilirubin [Mass/Vol] 0.5 mg/dL Normal 0.0 - 1.2 [facility] Comment on above: Performed By: #### R ENAL #### [facility] [address] [place] [address] Calcium [Mass/Vol] 10.3 mg/dL Normal 8.6 - 10.6 [facility] Comment on above: Performed By: #### R ENAL #### [facility] [address] [place] [address] Chloride [Moles/Vol] 101 mmol/L Normal 98 - 107 [facility] Comment on above: Performed By: #### R ENAL #### [facility] [address] [place] [address] Creatinine [Mass/Vol] 0.61 mg/dL Normal 0.50 - 1.05 [facility] Comment on above: Performed By: #### R ENAL #### [facility] [address] [place] [address] eGFR FEMALE >90 Normal >90 [facility] Comment on above: Result Comment: CALC ULATIONS OF ESTIMATED GFR ARE PERFORMED USING THE 2020 CKD-EPI STUDY REFIT EQUATION WITHOUT THE RACE VARIABLE FOR THE IDMS-TRACEABLE CREATININE METHODS. https://jasn.asnjournals.org/content/early/ASN.988 3399069 Performed By: #### R ENAL #### [facility] [address] [place] [address] Glucose [Mass/Vol] 100 mg/dL High 74 - 99 [facility] Comment on above: Performed By: #### R ENAL #### [facility] [address] [place] [address] HCO3 (Bld) [Moles/Vol] 27 mmol/L Normal 21 - 32 [facility] Comment on above: Performed By: #### R ENAL #### [facility] [address] [place] [address] Potassium [Moles/Vol] 3.8 mmol/L Normal 3.5 - 5.3 [facility] Comment on above: Performed By: #### R ENAL #### [facility] [address] [place] [address] Protein [Mass/Vol] 8.2 g/dL Normal 6.4 - 8.2 [facility] Comment on above: Performed By: #### R ENAL #### [facility] [address] [place] [address] Sodium [Moles/Vol] 140 mmol/L Normal 136 - 145 [facility] Comment on above: Performed By: #### R ENAL #### [facility] [address] [place] [address] Urea nitrogen [Mass/Vol] 5 mg/dL Low 6 - 23 [facility] Comment on above: Performed By: #### R ENAL #### [facility] [address] [place] [address] Consult - Neuro-Surgeryon Consult - Neuro-Surgery Service: [...] Updated: 07-Jun-2022 11:22 by Perez Carlisle) Normal [facility] NR CT L-SPINE WO CONTRASTon 06-07-[address] L-SPINE WO CONTRAST Patient Name: MORALES LEE STUDY: CT T-SPINE WO CONTRAST; CT L-SPINE WO CONTRAST 06/06/2022 11:03 pm INDICATION: ok, Lie Flat: Yes COMPARISON: 09/20/2021 MRI and 09/18/2021 CT ACCESSION NUMBER(S): [id number]; [id number] ORDERING CLINICIAN: CANDICE PEREZ TECHNIQUE: Axial CT [...] osseous spinal canal or neural foraminal stenosis. [id number] spinal canal and neural foraminal narrowing described [...] Electronically signed by: CELI MCNEIL DO Normal [facility] NR CT T-SPINE WO CONTRASTon 06-07-[address] T-SPINE WO CONTRAST Patient Name: MORALES LEE STUDY: CT T-SPINE WO CONTRAST; CT L-SPINE WO CONTRAST 06/06/2022 11:03 pm INDICATION: ok, Lie Flat: Yes COMPARISON: 09/20/2021 MRI and 09/18/2021 CT ACCESSION NUMBER(S): [id number]; [id number] ORDERING CLINICIAN: CANDICE PEREZ TECHNIQUE: Axial CT [...] osseous spinal canal or neural foraminal stenosis. Wrvc-[id number] spinal canal and neural foraminal narrowing described [...] view. Electronically signed by: DO Andrei TOURE [facility] Provider Note - ED Care [...] 21-Jun-2022 06:18 by Yony Aguirre () Normal [facility] Provider Note - ED v3on [...] - M21.37 (more content not included)... Normal [facility] Triage - EDon 06-06-2022 Triage [...] BMI (kg/m2): 34.793 Calculated BSA (m2) 1.94 [place] Coma Scale: Best Eye Response: (E4) spontaneous Best Motor Response: (M6) obeys commands Best Verbal Response: (V5) oriented [place] Score: 15 Mask applied: yes Patient has [...] 06-Jun-2022 19:07 by Meghan Chavez (MERA) Normal [facility] CULTURE URINEon 05-10-2022 CULTURE URINE [...] F Trimethoprim/Sulfamethoxa zole <=20 S F Normal [facility] Comment on above: Performed By: #### U MICRO, ERUR #### [facility] [address] [place] [address] Dr. Alfredo Lizama CBC AUTO DIFFon 05-07-2022 BASO # 0.1 103/ul Normal 0.0-0.1 [facility] Comment on above: Performed By: #### U MICRO, ERUR #### [facility] [address] [place] [address] Dr. Alfredo Lizama Basophils/100 WBC (Bld) 0.5 % Normal 0.2-2.0 [facility] Comment on above: Performed By: #### U MICRO, ERUR #### [facility] [address] [place] [address] Dr. Alfredo Lizama EO # 0.4 103/ul Normal 0.0-0.7 [facility] Comment on above: Performed By: #### U MICRO, ERUR #### [facility] [address] [place] [address] Dr. Alfredo Lizama Eosinophils/100 WBC (Bld) 3.5 % Normal 0.9-7.0 [facility] Comment on above: Performed By: #### U MICRO, ERUR #### [facility] [address] [place] [address] Dr. Alfredo Lizama Erythrocyte distribution width (RBC) [Ratio] 13.2 % Normal 11.0-15.0 [facility] Comment on above: Performed By: #### U MICRO, ERUR #### [facility] [address] [place] [address] Dr. Alfredo Lizama Hematocrit (Bld) [Volume fraction] 44.0 % Normal 36.0-48.0 [facility] Comment on above: Performed By: #### U MICRO, ERUR #### [facility] [address] [address] [address] Alfredo Lizama Hemoglobin (Bld) [Mass/Vol] 14.8 g/dL Normal 12.0-16.0 [facility] Comment on above: Performed By: #### U MICRO, ERUR #### [facility] [address] [place] [address] Dr. Alfredo Lizama IG # 0.03 10e3/ul Normal 0.00-0.03 [facility] Comment on above: Performed By: #### U MICRO, ERUR #### [facility] [address] [place] [address] Dr. Alfredo Lizama IG % 0.2 % Normal 0.0-0.5 [facility] Comment on above: Performed By: #### U MICRO, ERUR #### [facility] [address] [place] [address] Dr. Alfredo Lizama LYMPH # 3.8 103/ul Normal 1.2-3.8 [facility] Comment on above: Performed By: #### U MICRO, ERUR #### [facility] [address] [place] [address] Dr. Alfredo Lizama Lymphocytes/100 WBC (Bld) 31.3 % Normal 20.5-60.0 [facility] Comment on above: Performed By: #### U MICRO, ERUR #### [facility] [address] [place] [address] Dr. Alfredo Lizama MANUAL DIFF REQ NO Normal [facility] Comment on above: Performed By: #### U MICRO, ERUR #### [facility] [address] [place] [address] Dr. Alfredo Lizama MCH (RBC) [Entitic mass] 28.8 pg Normal 26.7-34.0 [facility] Comment on above: Performed By: #### U MICRO, ERUR #### [facility] [address] [place] [address] Dr. Alfredo Lizama MCHC (RBC) [Mass/Vol] 33.6 g/dL Normal 29.9-35.2 [facility] Comment on above: Performed By: #### U MICRO, ERUR #### [facility] [address] [place] [address] Dr. Alfredo Lizama MCV (RBC) [Entitic vol] 85.8 fL Normal 81.0-99.0 [facility] Comment on above: Performed By: #### U MICRO, ERUR #### [facility] [address] [place] [address] Dr. Alfredo Lizama MONO # 0.7 103/ul Normal 0.3-0.8 [facility] Comment on above: Performed By: #### U MICRO, ERUR #### [facility] [address] [place] [address] Dr. Alfredo Lizama Monocytes/100 WBC (Bld) 5.8 % Normal 1.7-12.0 [facility] Comment on above: Performed By: #### U MICRO, ERUR #### [facility] [address] [place] [address] Dr. Alfredo Lizama NEUT # 7.1 103/ul Critically high 1.4-6.5 [facility] Comment on above: Performed By: #### U MICRO, ERUR #### [facility] [address] [place] [address] Dr. Alfredo Lizama Neutrophils/100 WBC (Bld) 58.7 % Normal 43.0-75.0 [facility] Comment on above: Performed By: #### U MICRO, ERUR #### [facility] [address] [place] [address] Dr. Alfredo Lizama Platelet mean volume (Bld) [Entitic vol] 9.6 fL Normal 9.5-13.5 [facility] Comment on above: Performed By: #### U MICRO, ERUR #### [facility] [address] [place] [address] Dr. Alfredo Lizama PLT 269 103/ul Normal 150-450 [facility] Comment on above: Performed By: #### U MICRO, ERUR #### [facility] [address] [place] [address] Dr. Alfredo Lizama RBC 5.13 106/ul Normal 4.20-5.40 [facility] Comment on above: Performed By: #### U MICRO, ERUR #### [facility] [address], [place] [address] Dr. Alfredo Lizama WBC 12.2 103/ul Critically high 4.0-11.0 [facility] Comment on above: Performed By: #### U MICRO, ERUR #### [facility] [address], [place] [address] ABD/PELV W CONon [...] KORIN STANLEY Date: 2022-05-07 14:00 Normal [facility] ER URINE PROFILEon 2 Bilirubin Ql (U) Negative Normal NEGATIVE [facility] Comment on above: Performed By: #### U MICRO, ERUR #### [facility] [address] [place] [address] Dr. Alfredo Lizama Clarity (U) CLOUDY Abnormal CLEAR [facility] Comment on above: Performed By: #### U MICRO, ERUR #### [facility] [address] [place] [address] Dr. Alfredo Lizama Color (U) LT. YELLOW Normal YELLOW [facility] Comment on above: Performed By: #### U MICRO, ERUR #### [facility] [address] [place] [address] Dr. Alfredo Lizama ERUBYROND A micrscopic examina tion will be performed if indicated. Normal [facility] Comment on above: Performed By: #### U MICRO, ERUR #### [facility] [address] [place] [address] Dr. Alfredo Lizama Glucose Ql (U) Negative Normal NEGATIVE [facility] Comment on above: Performed By: #### U MICRO, ERUR #### [facility] [address] [place] [address] Dr. Alfredo Lizama Hemoglobin Ql (U) LARGE Abnormal NEGATIVE [facility] Comment on above: Performed By: #### U MICRO, ERUR #### [facility] [address] [place] [address] Dr. Alfredo Lizama Ketones Ql (U) Negative Normal NEGATIVE [facility] Comment on above: Performed By: #### U MICRO, ERUR #### [facility] [address] [place] [address] Dr. Alfredo Lizama LEUKOCYTES MODERATE Abnormal NEGATIVE [facility] Comment on above: Performed By: #### U MICRO, ERUR #### [facility] [address] [address] [address] Alfredo Lizama Nitrite Ql (U) Positive Abnormal NEGATIVE [facility] Comment on above: Performed By: #### U MICRO, ERUR #### [facility] [address] [place] [address] Dr. Alfredo Lizama pH (U) 8.5 [pH] Normal 5-9 [facility] Comment on above: Performed By: #### U MICRO, ERUR #### [facility] [address] [place] [address] Dr. Alfredo Lizama Protein (U) [Mass/Vol] 100 mg/dL Abnormal NEGAT LATISHA/ TRACE [facility] Comment on above: Performed By: #### U MICRO, ERUR #### [facility] [address] [place] [address] Dr. Alfredo Lizama SPEC GRAVITY 1.015 Normal 1.005-<=1. 025 [facility] Comment on above: Performed By: #### U MICRO, ERUR #### [facility] [address] [place] [address] Dr. Alfredo Lizama UR MICRO IND INDICATED Normal [facility] Comment on above: Performed By: #### U MICRO, ERUR #### [facility] [address] [place] [address] Dr. Alfredo Lizama Urobilinogen Qn (U) 1.0 {Tesha'U}/dL Normal 0.2 - 1. 0 [facility] Comment on above: Performed By: #### U MICRO, ERUR #### [facility] [address] [place] [address] Dr. Alfredo Lizama PROF CHEM 8 (BAS METB)on Anion gap [Moles/Vol] 12.0 mmol/L Normal [facility] Comment on above: Performed By: #### U MICRO, ERUR #### [facility] [address] [address] [address] Alfredo Lizama Calcium [Mass/Vol] 8.6 mg/dL Normal 8.5-10.1 [facility] Comment on above: Performed By: #### U MICRO, ERUR #### [facility] [address] [place] [address] Dr. Alfredo Lizama Chloride [Moles/Vol] 101 mmol/L Normal 98-107 [facility] Comment on above: Performed By: #### U MICRO, ERUR #### [facility] [address] [place] [address] Dr. Alfredo Lizama CO2 [Moles/Vol] 28.0 mmol/L Normal 21.0-32.0 [facility] Comment on above: Performed By: #### U MICRO, ERUR #### [facility] [address] [place] [address] Dr. Alfredo Lizama Creatinine [Mass/Vol] 0.77 mg/dL Normal 0.55-1.02 [facility] Comment on above: Performed By: #### U MICRO, ERUR #### [facility] [address] [place] [address] Dr. Alfredo Lizama EGFR-AF TOGOLESE >60 Normal >=60 [facility] Comment on above: Performed By: #### U MICRO, ERUR #### [facility] [address] [place] [address] Dr. Alfredo Lizama EGFR-NON AF TOGOLESE >60 Normal >=60 [facility] Comment on above: Performed By: #### U MICRO, ERUR #### [facility] [address] [place] [address] Dr. Alfredo Lizama Glucose [Mass/Vol] 96 mg/dL Normal 74-106 [facility] Comment on above: Performed By: #### U MICRO, ERUR #### [facility] [address] [place] [address] Dr. Alfredo Lizama Potassium [Moles/Vol] 4.0 mmol/L Normal 3.5-5.1 [facility] Comment on above: Performed By: #### U MICRO, ERUR #### [facility] [address] [address] [address] Alfredo Lizama Sodium [Moles/Vol] 137 mmol/L Normal 136-145 [facility] Comment on above: Performed By: #### U MICRO, ERUR #### [facility] [address] [place] [address] Dr. Alfredo Lizama Urea nitrogen [Mass/Vol] 7.0 mg/dL Normal 7.0-18.0 [facility] Comment on above: Performed By: #### U MICRO, ERUR #### [facility] [address] [place] [address] Dr. Alfredo Lizama Urea nitrogen/Creatinine [Mass ratio] 9.1 mg/mg Normal [facility] Comment on above: Performed By: #### U MICRO, ERUR #### [facility] [address] [place] [address] Dr. Alfredo Lizama URINE MICROSCOPIC ONLYon BACTERIA MODERATE Abnormal NONE SEEN [facility] Comment on above: Performed By: #### U MICRO, ERUR #### [facility] [address] [place] [address] Dr. Alfredo Lizama Bacteria identified Cx Nom (U) INDICATED Normal [facility] Comment on above: Performed By: #### U MICRO, ERUR #### [facility] [address] [place] [address] Dr. Alfredo Lizama CAST NONE SEEN Normal NONE SEEN [facility] Comment on above: Performed By: #### U MICRO, ERUR #### [facility] [address] [place] [address] Dr. Alfredo Lizama Crystals LM Nom (Urine sed) NONE SEEN Normal NONE SEEN [facility] Comment on above: Performed By: #### U MICRO, ERUR #### [facility] [address] [place] [address] Dr. Alfredo Lizama Epithelial cells LM Ql (Urine sed) FEW Abnormal NONE SEEN /RARE [facility] Comment on above: Performed By: #### U MICRO, ERUR #### [facility] [address] [address] [address] Alfredo Lizama MUCOUS NONE SEEN Normal NONE SEEN [facility] Comment on above: Performed By: #### U MICRO, ERUR #### [facility] [address] [place] [address] Dr. Alfredo Lizama RBC 2-5 Abnormal 0-2 [facility] Comment on above: Performed By: #### U MICRO, ERUR #### [facility] [address] [address] [address] Alfredo Lizama WBC 10-20 Abnormal NONE SEEN [facility] Comment on above: Performed By: #### U MICRO, ERUR #### [facility] [address] [place] [address] Dr. Alfredo Lizama CULTURE URINEon 04-10-2022 CULTURE [...] Trimethoprim/Sulfamethoxa zole <=20 S F Normal [facility] Comment on above: Performed By: #### U MICRO, ERUR #### [facility] [address] [address] [address] Alfredo SANDY URINE PROFILEon 2 Bilirubin Ql (U) Negative Normal NEGATIVE [facility] Comment on above: Performed By: #### U MICRO, ERUR #### [facility] [address] [address] [address] Alfredo Lizama Clarity (U) CLOUDY Abnormal CLEAR [facility] Comment on above: Performed By: #### U MICRO, ERUR #### [facility] [address] [address] [address] Alfredo Lizama Color (U) YELLOW Normal YELLOW [facility] Comment on above: Performed By: #### U MICRO, ERUR #### [facility] [address] [place] [address] Dr. Alfredo Lizama ERUAHD A micrscopic examina tion will be performed if indicated. Normal [facility] Comment on above: Performed By: #### U MICRO, ERUR #### [facility] [address] [address] [address] Alfredo Lizama Glucose Ql (U) Negative Normal NEGATIVE [facility] Comment on above: Performed By: #### U MICRO, ERUR #### [facility] [address] [place] [address] Dr. Alfredo Lizama Hemoglobin Ql (U) SMALL Abnormal NEGATIVE [facility] Comment on above: Performed By: #### U MICRO, ERUR #### [facility] [address] [address] [address] Alfredo Lizama Ketones Ql (U) Negative Normal NEGATIVE [facility] Comment on above: Performed By: #### U MICRO, ERUR #### [facility] [address] [address] [address] Alfredo Lizama LEUKOCYTES LARGE Abnormal NEGATIVE [facility] Comment on above: Performed By: #### U MICRO, ERUR #### [facility] [address] [address] [address] Alfredo Lizama Nitrite Ql (U) Negative Normal NEGATIVE [facility] Comment on above: Performed By: #### U MICRO, ERUR #### [facility] [address] [place] [address] Dr. Alfredo Lizama pH (U) 7.0 [pH] Normal 5-9 [facility] Comment on above: Performed By: #### U MICRO, ERUR #### [facility] [address] [place] [address] Dr. Alfredo Lizama SPEC GRAVITY <=1.005 Abnormal 1.005-<=1. 025 [facility] Comment on above: Performed By: #### U MICRO, ERUR #### [facility] [address] [place] [address] Dr. Alfredo Lizama UA PROTEIN Negative Normal NEGATIVE/ TRACE [facility] Comment on above: Performed By: #### U MICRO, ERUR #### [facility] [address] [place] [address] Dr. Alfredo Lizama UR MICRO IND INDICATED Normal [facility] Comment on above: Performed By: #### U MICRO, ERUR #### [facility] [address] [place] [address] Dr. Alfredo Lizama Urobilinogen Qn (U) 0.2 {Tesha'U}/dL Normal 0.2 - 1. 0 [facility] Comment on above: Performed By: #### U MICRO, ERUR #### [facility] [address] [place] [address] Dr. Alfredo Lizama URINE MICROSCOPIC ONLYon BACTERIA MODERATE Abnormal NONE SEEN [facility] Comment on above: Performed By: #### U MICRO, ERUR #### [facility] [address] [place] [address] Dr. Alfredo Lizama Bacteria identified Cx Nom (U) INDICATED Normal [facility] Comment on above: Performed By: #### U MICRO, ERUR #### [facility] [address] [place] [address] Dr. Alfredo Lizama CAST NONE SEEN Normal NONE SEEN [facility] Comment on above: Performed By: #### U MICRO, ERUR #### [facility] [address] [address] [address] Alfredo Lizama Crystals LM Nom (Urine sed) NONE SEEN Normal NONE SEEN [facility] Comment on above: Performed By: #### U MICRO, ERUR #### [facility] [address] [address] [address] Alfredo Lizama Epithelial cells LM Ql (Urine sed) FEW Abnormal NONE SEEN /RARE [facility] Comment on above: Performed By: #### U MICRO, ERUR #### [facility] [address] [address] [address] Alfredo Lizama MUCOUS NONE SEEN Normal NONE SEEN [facility] Comment on above: Performed By: #### U MICRO, ERUR #### [facility] [address] [address] [address] Alfredo Lizama RBC 5-10 Abnormal 0-2 [facility] Comment on above: Performed By: #### U MICRO, ERUR #### [facility] [address] [address] [address] Alfredo Lizama WBC (U) [#/Vol] /uL Abnormal NONE SEEN [facility] Comment on above: Performed By: #### U MICRO, ERUR #### [facility] [address] [address] [address] Alfredo Lizama Basic Metabolic Panelon 11-03 Calcium [Mass/Vol] 8.9 mg/dL Normal 8.2-10.2 [facility] Comment on above: Performed By: #### C BC, CMP, PAB #### [facility] [address] [place] [address] [place] Chloride [Moles/Vol] 101 mmol/L Normal 95-114 [facility] Comment on above: Performed By: #### C BC, CMP, PAB #### [facility] [address] [place] [address] [place] CO2 [Moles/Vol] 29.0 mmol/L Normal 22.0-30.0 [facility] Comment on above: Performed By: #### C BC, CMP, PAB #### [facility] [address] Creatinine [Mass/Vol] 0.48 mg/dL Normal 0.44-1.03 [facility] Comment on above: Performed By: #### C DARIUS PATEL, PAB #### [address] Creatinine Clr Calc Pharmacy 150.29 [facility] Comment on above: Result Comment: PERF ORMED BY: [place] [address] PATHOLOGIST [employer] OCX M.D. Performed By: #### C DARIUS PATEL, PAB #### [facility] [address] Estimated GFR ( July > 60 [facility] Comment on above: Result Comment: GFR estimated reference range: According to KDOQI guidelines, <60 ml/min/1.73m2 is sufficient to diagnose a patient with chronic kidney disease. Performed By: #### C DARIUS PATEL, PAB #### [address] Estimated GFR (Non- Am > 60 [facility] Comment on above: Performed By: #### C DARIUS PATEL, PAB #### [address] Glucose [Mass/Vol] 111 mg/dL High 70-100 [facility] Comment on above: Result Comment: [place] Glucose Reference Range is dependent on time and content of last meal. Glucose of more than 200 mg/dL in a nonstressed, ambulatory subject supports the diagnosis of Diabetes Mellitus. ADA recommended reference range Performed By: #### C DARIUS PATEL, PAB #### [facility] [address] Potassium [Moles/Vol] 3.6 mmol/L Normal 3.5-5.1 [facility] Comment on above: Performed By: #### C DARIUS PATEL, PAB #### [facility] [address] Sodium [Moles/Vol] 138 mmol/L Normal 136-146 [facility] Comment on above: Performed By: #### C BC, CMP, PAB #### [facility] [address] Urea nitrogen [Mass/Vol] 10 mg/dL Normal 9- [facility] Comment on above: Performed By: #### C BC, CMP, PAB #### [facility] [address] Complete Blood Count Auto Di ffon 11-19-2021 Basophils (Bld) [#/Vol] 0.1 10*3/uL Normal 0.0-0.2 [facility] Comment on above: Result Comment: PERF ORMED BY: [place] [address] PATHOLOGIST [employer] COX M.D. Performed By: #### C BC, CMP, PAB #### [address] Basophils/100 WBC (Bld) 0.8 % Normal . [facility] Comment on above: Performed By: #### C BC, CMP, PAB #### [facility] [address] [place] [address] [place] Eosinophils (Bld) [#/Vol] 0.4 10*3/uL Normal 0.0-0.45 [facility] Comment on above: Performed By: #### C BC, CMP, PAB #### [place] [address] [place] Eosinophils/100 WBC (Bld) 5.8 % Normal . [facility] Comment on above: Performed By: #### C BC, CMP, PAB #### [facility] [address] Erythrocyte distribution width (RBC) [Ratio] 14.3 % Normal 11.9-15.3 [facility] Comment on above: Performed By: #### C BC, CMP, PAB #### [facility] [address] Hematocrit (Bld) [Volume fraction] 36.0 % Normal 34.0-46.4 [facility] Comment on above: Performed By: #### C BC, CMP, PAB #### [facility] [address] [place] [address] [place] Hemoglobin (Bld) [Mass/Vol] 11.9 g/dL Normal 11.8-15.4 [facility] Comment on above: Performed By: #### C BC, CMP, PAB #### [facility] [address] Lymphocytes (Bld) [#/Vol] 2.7 10*3/uL Normal 1.00-4.8 [facility] Comment on above: Performed By: #### C BC, CMP, PAB #### [facility] [address] Lymphocytes/100 WBC (Bld) 37.6 % Normal . [facility] Comment on above: Performed By: #### C BC, CMP, PAB #### [facility] [address] MCH (RBC) [Entitic mass] 28.1 pg Normal 24.7-34.3 [facility] Comment on above: Performed By: #### C BC, CMP, PAB #### [facility] [address] [place] [address] [place] MCV (RBC) [Entitic vol] 85.3 fL Normal 80-100 [facility] Comment on above: Performed By: #### C BC, CMP, PAB #### [facility] [address] Mean Corpuscular HGB Conc 32.9 g/dL Normal 32.0-35.0 [facility] Comment on above: Performed By: #### C BC, CMP, PAB #### [facility] [address] [place] [address] [place] Monocytes (Bld) [#/Vol] 0.4 10*3/uL Normal 0.0-0.8 [facility] Comment on above: Performed By: #### C BC, CMP, PAB #### [facility] [address] [place] [address] [place] Monocytes/100 WBC (Bld) 5.2 % Normal . [facility] Comment on above: Performed By: #### C BC, CMP, PAB #### [facility] [address] [place] [address] [place] Neutrophils (Bld) [#/Vol] 3.7 10*3/uL Normal 1.8-7.7 [facility] Comment on above: Performed By: #### C BC, CMP, PAB #### [facility] [address] Neutrophils/100 WBC (Bld) 50.6 % Normal . [facility] Comment on above: Performed By: #### C BC, CMP, PAB #### [facility] [address] Nucleated RBC/100 WBC (Bld) [Ratio] 0.0 % Normal 0-0.5 [facility] Comment on above: Performed By: #### C BC, CMP, PAB #### [facility] [address] Platelet mean volume (Bld) [Entitic vol] 7.6 fL Normal 6.3-10.7 [facility] Comment on above: Performed By: #### C BC, CMP, PAB #### [facility] [address] Platelets (Bld) [#/Vol] 252 10*3/uL Normal 150-450 [facility] Comment on above: Performed By: #### C BC, CMP, PAB #### [facility] [address] [place] [address] [place] RBC (Bld) [#/Vol] 4.22 10*6/uL Normal 3.60-5.00 [facility] Comment on above: Performed By: #### C BC, CMP, PAB #### [facility] [address] [place] [address] [place] WBC (Bld) [#/Vol] 7.2 10*3/uL Normal 4.5-11.0 [facility] Comment on above: Performed By: #### C BC, CMP, PAB #### [facility] [address] [place] [address] [place] Ammoniaon 11-11-2021 Ammonia (P) [Moles/Vol] 26 umol/L Normal 11-35 [facility] Comment on above: Result Comment: PERF ORMED BY: [place] [address] PATHOLOGIST [employer] COX M.D. Performed By: #### C BC, CMP, PAB #### [address] Hepatic Panelon 11-11-2021 Albumin [Mass/Vol] 3.0 g/dL Low 3.2-5.5 [facility] Comment on above: Performed By: #### C BC, CMP, PAB #### [address] Albumin/Globulin [Mass ratio] 1.0 {ratio} Normal [facility] Comment on above: Performed By: #### C BC, CMP, PAB #### [address] ALP [Catalytic activity/Vol] 187 U/L High 32-92 [facility] Comment on above: Result Comment: PERF ORMED BY: [place] [address] PATHOLOGIST [employer] COX M.D. Performed By: #### C BC, CMP, PAB #### [address] ALT [Catalytic activity/Vol] 54 U/L Normal 10-60 [facility] Comment on above: Performed By: #### C BC, CMP, PAB #### [address] AST [Catalytic activity/Vol] 39 U/L Normal 10-42 [facility] Comment on above: Performed By: #### C BC, CMP, PAB #### [address] Bilirubin [Mass/Vol] 0.3 mg/dL Normal 0.3-1.2 [facility] Comment on above: Performed By: #### C BC, CMP, PAB #### [facility] [address] [place] [address] Bilirubin,Indirect Not performed Normal [facility] Comment on above: Performed By: #### C BC, CMP, PAB #### [facility] [address] Bilirubin.indirect [Mass/Vol] mg/dL Normal 0.0-0.4 [facility] Comment on above: Performed By: #### C BC, CMP, PAB #### [facility] [address] [place] [address] Globulin (S) [Mass/Vol] 3.0 g/dL Normal [facility] Comment on above: Performed By: #### C BC, CMP, PAB #### [address] Protein [Mass/Vol] 6.0 g/dL Low 6.1-7.9 [facility] Comment on above: Performed By: #### C BC, CMP, PAB #### [address] Hepatitis Acute Panelon 03-0 HBsAg Screen Negative Normal Negative [facility] Comment on above: Performed By: #### C BC, CMP, PAB #### [address] Hepatitis A Antibody IgM Negative Normal Negative [facility] Comment on above: Performed By: #### C BC, CMP, PAB #### [facility] [address] [place] [address] Hepatitis B Core Antibody IgM Negative Normal Negative [facility] Comment on above: Performed By: #### C BC, CMP, PAB #### [facility] [address] [place] [address] Hepatitis C Virus Antibody 0.2 Normal 0.0-0.9 [facility] Comment on above: Performed By: #### C BC, CMP, PAB #### [facility] [address] [place] [address] Interpretation Hepatitis C Normal . [facility] Comment on above: Result Comment: Dov chun Not infected with HCV, unless recent infection is suspected or other evidence exists to indicate HCV infection. Performed at: - [facility] [address] [id number] [place]: Pedro Luis José PhD, Phone: [phone] PERFORMED BY: [place] [address] PATHOLOGIST [employer] CXO M.D. Performed By: #### C BC, CMP, PAB #### [address] [place] liveron 11-11-2021 liver [facility] Main [place] [address] [place] [address] Ultrasound Report Signed Patient: Morales Lee MR#: [id number] : 1975 Acct:[id number] Age/Sex: 46 / F ADM Date: 10/29/21 Loc: Room: [address] [place] [address] Type: ADM IN Attending Dr: Richard Acevedo [...] M.D.11/11/2021 10:23 AM Dictation Location: [address] [address] Tech: Ermelinda Diaz Transcribed By: CORTNEY 11/11/21 1023 Dictated By: Alexandru Pond DO 11/11/21 1018 Signed By: 11/11/21 1023 Normal [facility] Complete Blood Count Auto Di ffon 11-10-2021 Basophils (Bld) [#/Vol] 0.1 10*3/uL Normal 0.0-0.2 [facility] Comment on above: Result Comment: PERF ORMED BY: [place] [address] PATHOLOGIST [employer] COX M.D. Performed By: #### C BC #### [address] Basophils/100 WBC (Bld) 1.2 % Normal . [facility] Comment on above: Performed By: #### C BC #### [address] Eosinophils (Bld) [#/Vol] 0.3 10*3/uL Normal 0.0-0.45 [facility] Comment on above: Performed By: #### C BC #### [address] Eosinophils/100 WBC (Bld) 5.9 % Normal . [facility] Comment on above: Performed By: #### C BC #### [address] Erythrocyte distribution width (RBC) [Ratio] 14.2 % Normal 11.9-15.3 [facility] Comment on above: Performed By: #### C BC #### [address] Hematocrit (Bld) [Volume fraction] 37.1 % Normal 34.0-46.4 [facility] Comment on above: Performed By: #### C BC #### [address] Hemoglobin (Bld) [Mass/Vol] 12.3 g/dL Normal 11.8-15.4 [facility] Comment on above: Performed By: #### C BC #### [address] Lymphocytes (Bld) [#/Vol] 2.0 10*3/uL Normal 1.00-4.8 [facility] Comment on above: Performed By: #### C BC #### [address] Lymphocytes/100 WBC (Bld) 36.5 % Normal . [facility] Comment on above: Performed By: #### C BC #### [address] MCH (RBC) [Entitic mass] 28.6 pg Normal 24.7-34.3 [facility] Comment on above: Performed By: #### C BC #### [address] MCV (RBC) [Entitic vol] 86.5 fL Normal 80-100 [facility] Comment on above: Performed By: #### C BC #### [address] Mean Corpuscular HGB Conc 33.1 g/dL Normal 32.0-35.0 [facility] Comment on above: Performed By: #### C BC #### [address] Monocytes (Bld) [#/Vol] 0.3 10*3/uL Normal 0.0-0.8 [facility] Comment on above: Performed By: #### C BC #### [address] Monocytes/100 WBC (Bld) 5.3 % Normal . [facility] Comment on above: Performed By: #### C BC #### [place] [address] [place] Neutrophils (Bld) [#/Vol] 2.8 10*3/uL Normal 1.8-7.7 [facility] Comment on above: Performed By: #### C BC #### [place] [address] [place] Neutrophils/100 WBC (Bld) 51.1 % Normal . [facility] Comment on above: Performed By: #### C BC #### [address] Nucleated RBC/100 WBC (Bld) [Ratio] 0.1 % Normal 0-0.5 [facility] Comment on above: Performed By: #### C BC #### [address] Platelet mean volume (Bld) [Entitic vol] 7.8 fL Normal 6.3-10.7 [facility] Comment on above: Performed By: #### C BC #### [address] Platelets (Bld) [#/Vol] 214 10*3/uL Normal 150-450 [facility] Comment on above: Performed By: #### C BC #### [address] RBC (Bld) [#/Vol] 4.28 10*6/uL Normal 3.60-5.00 [facility] Comment on above: Performed By: #### C BC #### [address] WBC (Bld) [#/Vol] 5.4 10*3/uL Normal 4.5-11.0 [facility] Comment on above: Performed By: #### C BC #### [address] Comprehensive Metabolic Pane shree 11-10-2021 Albumin [Mass/Vol] 2.9 g/dL Low 3.2-5.5 [facility] Comment on above: Performed By: #### C BC, CMP, PAB #### [address] Albumin/Globulin [Mass ratio] 0.9 {ratio} Normal [facility] Comment on above: Performed By: #### C BC, CMP, PAB #### [address] ALP [Catalytic activity/Vol] 201 U/L High 32-92 [facility] Comment on above: Performed By: #### C BC CMP, PAB #### [facility] [address] ALT [Catalytic activity/Vol] 67 U/L High 10-60 [facility] Comment on above: Performed By: #### C BC, CMP, PAB #### [facility] [address] AST [Catalytic activity/Vol] 66 U/L High 10-42 [facility] Comment on above: Performed By: #### C BC, CMP, PAB #### [facility] [address] Bilirubin [Mass/Vol] 0.4 mg/dL Normal 0.3-1.2 [facility] Comment on above: Performed By: #### C BC, CMP, PAB #### [facility] [address] Calcium [Mass/Vol] 8.7 mg/dL Normal 8.2-10.2 [facility] Comment on above: Performed By: #### C BC CMP, PAB #### [facility] [address] Chloride [Moles/Vol] 100 mmol/L Normal 95-114 [facility] Comment on above: Performed By: #### C BC, CMP, PAB #### [facility] [address] CO2 [Moles/Vol] 26.4 mmol/L Normal 22.0-30.0 [facility] Comment on above: Performed By: #### C BC, CMP, PAB #### [facility] [address] [place] [address] [place] Creatinine [Mass/Vol] 0.50 mg/dL Normal 0.44-1.03 [facility] Comment on above: Performed By: #### C BC, CMP, PAB #### [facility] [address] [place] [address] [place] Creatinine Clr Calc Pharmacy 142.11 Normal [facility] Comment on above: Result Comment: PERF ORMED BY: [place] [address] PATHOLOGIST [employer] COX M.D. Performed By: #### C BC, CMP, PAB #### [address] Estimated GFR ( July > 60 [facility] Comment on above: Result Comment: GFR estimated reference range: According to KDOQI guidelines, <60 ml/min/1.73m2 is sufficient to diagnose a patient with chronic kidney disease. Performed By: #### C BC, CMP, PAB #### [address] Estimated GFR (Non- Am > 60 [facility] Comment on above: Performed By: #### C BC, CMP, PAB #### [address] Globulin (S) [Mass/Vol] 3.1 g/dL Normal [facility] Comment on above: Performed By: #### C BC, CMP, PAB #### [address] Glucose [Mass/Vol] 110 mg/dL High 70-100 [facility] Comment on above: Result Comment: [place] Glucose Reference Range is dependent on time and content of last meal. Glucose of more than 200 mg/dL in a nonstressed, ambulatory subject supports the diagnosis of Diabetes Mellitus. ADA recommended reference range Performed By: #### C BC, CMP, PAB #### [address] Potassium [Moles/Vol] 4.0 mmol/L Normal 3.5-5.1 [facility] Comment on above: Performed By: #### C BC, CMP, PAB #### [address] Protein [Mass/Vol] 6.0 g/dL Low 6.1-7.9 [facility] Comment on above: Performed By: #### C BC, CMP, PAB #### [facility] [address] [place] [id number] [place] Sodium [Moles/Vol] 136 mmol/L Normal 136-146 [facility] Comment on above: Performed By: #### C BC, CMP, PAB #### [facility] [address] [place] [id number] [place] Urea nitrogen [Mass/Vol] 8 mg/dL Low 9-23 [facility] Comment on above: Performed By: #### C BC, CMP, PAB #### [facility] [address] [place] [address] [place] Dipstick and Microscopicon 0 11-10-2021 Appearance (U) Turbid Critically abnormal Clear [facility] Comment on above: Order Comment: Name Collection Type:: Alvares Catheter Performed By: #### C BC, CMP, PAB #### [facility] [address] [place] [address] [place] Bacteria,Urine 3+ High None Seen [facility] Comment on above: Order Comment: Name Collection Type:: Alvares Catheter Performed By: #### C BC, CMP, PAB #### [facility] [address] [place] [address] [place] Bilirubin,Urine Negative Normal Negative [facility] Comment on above: Order Comment: Name Collection Type:: Alvares Catheter Performed By: #### C BC, CMP, PAB #### [facility] [address] [place] [id number] [place] Color (U) Yellow Normal Yellow [facility] Comment on above: Order Comment: Name Collection Type:: Alvares Catheter Performed By: #### C BC, CMP, PAB #### [facility] [address] [place] [id number] [place] Glucose Ql (U) Normal Normal Normal [facility] Comment on above: Order Comment: Name Collection Type:: Alvares Catheter Performed By: #### C BC, CMP, PAB #### [facility] [address] [place] [id number] [place] Hyaline Casts,Urine None Seen Normal 0-1 [facility] Comment on above: Order Comment: Name Collection Type:: Alvares Catheter Performed By: #### C BC, CMP, PAB #### [facility] [address] [place] [address] [place] Ketones Ql (U) Negative Normal Negative [facility] Comment on above: Order Comment: Name Collection Type:: Alvares Catheter Performed By: #### C BC, CMP, PAB #### [facility] [address] [place] [address] Leukocyte esterase Test strip Ql (U) 3+ High Negative [facility] Comment on above: Order Comment: Name Collection Type:: Alvares Catheter Performed By: #### C BC, CMP, PAB #### [address] Nitrite,Urine Positive High Negative [facility] Comment on above: Order Comment: Name Collection Type:: Alvares Catheter Performed By: #### C BC, CMP, PAB #### [address] Occult Blood,Urine 2+ High Negative [facility] Comment on above: Order Comment: Name Collection Type:: Alvares Catheter Result Comment: PERF ORMED BY: [place] [address] PATHOLOGIST [employer] HUY COX M.D. Performed By: #### C BC, CMP, PAB #### [address] Other Casts,Urine None Seen Normal None Seen [facility] Comment on above: Order Comment: Name Collection Type:: Alvares Catheter Result Comment: PERF ORMED BY: [place] [address] PATHOLOGIST [employer] HUY COX M.D. Performed By: #### C BC, CMP, PAB #### [facility] [address] [place] [address] [place] pH (U) 8.5 [pH] Normal 5.0-9.0 [facility] Comment on above: Order Comment: Name Collection Type:: Alvares Catheter Performed By: #### C BC, CMP, PAB #### [address] [address] [place] Protein,Urine Negative Normal Negative [facility] Comment on above: Order Comment: Name Collection Type:: Alvares Catheter Performed By: #### C BC, CMP, PAB #### [facility] [address] [place] [address] RBC,Urine 1-2 Normal 0-4 [facility] Comment on above: Order Comment: Name Collection Type:: Alvares Catheter Performed By: #### C BC, CMP, PAB #### [facility] [address] [place] [address] Specificy [place],Urine 1.006 Normal 1.00 1-1.03 0 [facility] Comment on above: Order Comment: Name Collection Type:: Alvares Catheter Performed By: #### C BC, CMP, PAB #### [facility] [address] [place] [address] Squamous Epithelial Cell,Urine 3-4 High 0-2 [facility] Comment on above: Order Comment: Name Collection Type:: Alvares Catheter Performed By: #### C BC, CMP, PAB #### [facility] [address] [place] [address] Triple Phosphate Crystal,Urine 2+ Normal [facility] Comment on above: Order Comment: Name Collection Type:: Alvares Catheter Performed By: #### C BC, CMP, PAB #### [facility] [address] [place] [address] Urobilinogen,Urine Normal Normal Normal [facility] Comment on above: Order Comment: Name Collection Type:: Alvares Catheter Performed By: #### C BC, CMP, PAB #### [facility] [address] [place] [address] [place] WBC,Urine 20-49 High 0-4 [facility] Comment on above: Order Comment: Name Collection Type:: Alvares Catheter Performed By: #### C BC, CMP, PAB #### [facility] [address] [place] [address] [place] Urine Cultureon 11-10-2021 Bacteria identified Cx Nom (U) ORGANISM: Providencia rettgeri (O:PRORET) Twining Count >100,000 Aerobic JOSE Charge (NUC86) SUSCEPTIBILITY [...] RESISTANT TO ALL B-LACTAM DRUGS. PERFORMED BY: [place] [address] PATHOLOGIST [employer] HUY COX M.D. [facility] Comment on above: Performed By: #### C BC, CMP, PAB #### [address] Basic Metabolic Panelon 03-0 Calcium [Mass/Vol] 8.7 mg/dL Normal 8.2-10.2 [facility] Comment on above: Performed By: #### B MP, CBC #### [address] Chloride [Moles/Vol] 102 mmol/L Normal 95-114 [facility] Comment on above: Performed By: #### B MP, CBC #### [address] CO2 [Moles/Vol] 25.5 mmol/L Normal 22.0-30.0 [facility] Comment on above: Performed By: #### B MP, CBC #### [address] Creatinine [Mass/Vol] 0.71 mg/dL Normal 0.44-1.03 [facility] Comment on above: Performed By: #### B MP, CBC #### [address] Creatinine Clr Calc Pharmacy 100.08 [facility] Comment on above: Result Comment: PERF ORMED BY: [place] [address] PATHOLOGIST [employer] HUY COX M.D. Performed By: #### B MP, CBC #### [address] Estimated GFR ( July > 60 [facility] Comment on above: Result Comment: GFR estimated reference range: According to KDOQI guidelines, <60 ml/min/1.73m2 is sufficient to diagnose a patient with chronic kidney disease. Performed By: #### B MP, CBC #### [address] Estimated GFR (Non- Am > 60 [facility] Comment on above: Performed By: #### B MP, CBC #### [address] Glucose [Mass/Vol] 104 mg/dL High 70-100 [facility] Comment on above: Result Comment: [place] Glucose Reference Range is dependent on time and content of last meal. Glucose of more than 200 mg/dL in a nonstressed, ambulatory subject supports the diagnosis of Diabetes Mellitus. ADA recommended reference range Performed By: #### B MP, CBC #### [address] Potassium [Moles/Vol] 4.1 mmol/L Normal 3.5-5.1 [facility] Comment on above: Performed By: #### B MP, CBC #### [facility] [address] Sodium [Moles/Vol] 137 mmol/L Normal 136-146 [facility] Comment on above: Performed By: #### B MP, CBC #### [facility] [address] Urea nitrogen [Mass/Vol] 10 mg/dL Normal 9-23 [facility] Comment on above: Performed By: #### B MP, CBC #### [address] Complete Blood Count Auto Di ffon 11-06-2021 Basophils (Bld) [#/Vol] 0.1 10*3/uL Normal 0.0-0.2 [facility] Comment on above: Result Comment: PERF ORMED BY: [place] [address] PATHOLOGIST [employer] HUY COX M.D. Performed By: #### B MP, CBC #### [address] Basophils/100 WBC (Bld) 0.8 % Normal . [facility] Comment on above: Performed By: #### B MP, CBC #### [address] Eosinophils (Bld) [#/Vol] 0.4 10*3/uL Normal 0.0-0.45 [facility] Comment on above: Performed By: #### B MP, CBC #### [address] Eosinophils/100 WBC (Bld) 5.5 % Normal . [facility] Comment on above: Performed By: #### B MP, CBC #### [address] Erythrocyte distribution width (RBC) [Ratio] 14.2 % Normal 11.9-15.3 [facility] Comment on above: Performed By: #### B MP, CBC #### [address] Hematocrit (Bld) [Volume fraction] 36.0 % Normal 34.0-46.4 [facility] Comment on above: Performed By: #### B MP, CBC #### [address] Hemoglobin (Bld) [Mass/Vol] 12.0 g/dL Normal 11.8-15.4 [facility] Comment on above: Performed By: #### B MP, CBC #### [address] Lymphocytes (Bld) [#/Vol] 2.4 10*3/uL Normal 1.00-4.8 [facility] Comment on above: Performed By: #### B MP, CBC #### [address] Lymphocytes/100 WBC (Bld) 35.2 % Normal . [facility] Comment on above: Performed By: #### B MP, CBC #### [address] MCH (RBC) [Entitic mass] 28.9 pg Normal 24.7-34.3 [facility] Comment on above: Performed By: #### B MP, CBC #### [address] MCV (RBC) [Entitic vol] 86.4 fL Normal 80-100 [facility] Comment on above: Performed By: #### B MP, CBC #### [address] Mean Corpuscular HGB Conc 33.4 g/dL Normal 32.0-35.0 [facility] Comment on above: Performed By: #### B MP, CBC #### [address] Monocytes (Bld) [#/Vol] 0.3 10*3/uL Normal 0.0-0.8 [facility] Comment on above: Performed By: #### B MP, CBC #### [place] [address] [place] Monocytes/100 WBC (Bld) 4.8 % Normal . [facility] Comment on above: Performed By: #### B MP, CBC #### [facility] [address] [place] [address] [place] Neutrophils (Bld) [#/Vol] 3.7 10*3/uL Normal 1.8-7.7 [facility] Comment on above: Performed By: #### B MP, CBC #### [facility] [address] Neutrophils/100 WBC (Bld) 53.7 % Normal . [facility] Comment on above: Performed By: #### B MP, CBC #### [facility] [address] Nucleated RBC/100 WBC (Bld) [Ratio] 0.0 % Normal 0-0.5 [facility] Comment on above: Performed By: #### B MP, CBC #### [facility] [address] Platelet mean volume (Bld) [Entitic vol] 8.2 fL Normal 6.3-10.7 [facility] Comment on above: Performed By: #### B MP, CBC #### [facility] [address] [place] [address] [place] Platelets (Bld) [#/Vol] 235 10*3/uL Normal 150-450 [facility] Comment on above: Performed By: #### B MP, CBC #### [facility] [address] [place] [address] [place] RBC (Bld) [#/Vol] 4.17 10*6/uL Normal 3.60-5.00 [facility] Comment on above: Performed By: #### B MP, CBC #### [facility] [address] [place] [address] [place] WBC (Bld) [#/Vol] 6.9 10*3/uL Normal 4.5-11.0 [facility] Comment on above: Performed By: #### B MP, CBC #### [facility] [address] US venous duplex LE BIon US venous duplex LE BI [facility] [place] [address] [place] [address] Ultrasound Report Signed Patient: Morales Lee MR#: [id number] : 1975 Acct:[id number] Age/Sex: 46 / F ADM Date: 10/29/21 Loc: Room: [address] [place] [address] Type: ADM IN Attending Dr: Richard Acevedo [...] Carlos Neal MD11/04/2021 11:36 AM Dictation Location: [place] [address] Tech: Natalia Rivas Transcribed By: CORTNEY 11/04/21 1136 Dictated By: Juan Carlos Neal MD 11/04/21 1135 Signed By: 11/04/21 1136 Normal [facility] Complete Blood Count Auto Di ffon 10-30-2021 Basophils (Bld) [#/Vol] 0.0 10*3/uL Normal 0.0-0.2 [facility] Comment on above: Result Comment: PERF ORMED BY: [place] [address] PATHOLOGIST [employer] HUY COX M.D. Performed By: #### C BC, CMP, PAB #### [address] Basophils/100 WBC (Bld) 0.6 % Normal . [facility] Comment on above: Performed By: #### C BC, CMP, PAB #### [facility] [address] Eosinophils (Bld) [#/Vol] 0.4 10*3/uL Normal 0.0-0.45 [facility] Comment on above: Performed By: #### C BC, CMP, PAB #### [facility] [address] [place] [address] [place] Eosinophils/100 WBC (Bld) 4.9 % Normal . [facility] Comment on above: Performed By: #### C BC, CMP, PAB #### [facility] [address] Erythrocyte distribution width (RBC) [Ratio] 14.3 % Normal 11.9-15.3 [facility] Comment on above: Performed By: #### C BC, CMP, PAB #### [address] Hematocrit (Bld) [Volume fraction] 36.1 % Normal 34.0-46.4 [facility] Comment on above: Performed By: #### C BC, CMP, PAB #### [address] Hemoglobin (Bld) [Mass/Vol] 12.1 g/dL Normal 11.8-15.4 [facility] Comment on above: Performed By: #### C BC, CMP, PAB #### [place] [address] [place] Lymphocytes (Bld) [#/Vol] 2.8 10*3/uL Normal 1.00-4.8 [facility] Comment on above: Performed By: #### C BC, CMP, PAB #### [place] [address] [place] Lymphocytes/100 WBC (Bld) 39.0 % Normal . [facility] Comment on above: Performed By: #### C BC, CMP, PAB #### [address] MCH (RBC) [Entitic mass] 28.7 pg Normal 24.7-34.3 [facility] Comment on above: Performed By: #### C BC, CMP, PAB #### [facility] [address] MCV (RBC) [Entitic vol] 85.7 fL Normal 80-100 [facility] Comment on above: Performed By: #### C BC, CMP, PAB #### [facility] [address] Mean Corpuscular HGB Conc 33.4 g/dL Normal 32.0-35.0 [facility] Comment on above: Performed By: #### C BC, CMP, PAB #### [address] Monocytes (Bld) [#/Vol] 0.4 10*3/uL Normal 0.0-0.8 [facility] Comment on above: Performed By: #### C BC, CMP, PAB #### [address] Monocytes/100 WBC (Bld) 5.2 % Normal . [facility] Comment on above: Performed By: #### C BC, CMP, PAB #### [address] Neutrophils (Bld) [#/Vol] 3.6 10*3/uL Normal 1.8-7.7 [facility] Comment on above: Performed By: #### C BC, CMP, PAB #### [place] [address] [place] Neutrophils/100 WBC (Bld) 50.3 % Normal . [facility] Comment on above: Performed By: #### C BC, CMP, PAB #### [place] [address] [place] Nucleated RBC/100 WBC (Bld) [Ratio] 0.0 % Normal 0-0.5 [facility] Comment on above: Performed By: #### C BC, CMP, PAB #### [place] [address] [place] Platelet mean volume (Bld) [Entitic vol] 8.1 fL Normal 6.3-10.7 [facility] Comment on above: Performed By: #### C BC, CMP, PAB #### [facility] [address] Platelets (Bld) [#/Vol] 261 10*3/uL Normal 150-450 [facility] Comment on above: Performed By: #### C BC, CMP, PAB #### [address] RBC (Bld) [#/Vol] 4.22 10*6/uL Normal 3.60-5.00 [facility] Comment on above: Performed By: #### C BC, CMP, PAB #### [address] WBC (Bld) [#/Vol] 7.2 10*3/uL Normal 4.5-11.0 [facility] Comment on above: Performed By: #### C BC, CMP, PAB #### [address] Comprehensive Metabolic Pane shree 10-30-2021 Albumin [Mass/Vol] 2.8 g/dL Low 3.2-5.5 [facility] Comment on above: Performed By: #### C BC, CMP, PAB #### [address] Albumin/Globulin [Mass ratio] 1.0 {ratio} Normal [facility] Comment on above: Performed By: #### C BC, CMP, PAB #### [address] ALP [Catalytic activity/Vol] 116 U/L High 32-92 [facility] Comment on above: Performed By: #### C BC, CMP, PAB #### [address] ALT [Catalytic activity/Vol] 20 U/L Normal 10-60 [facility] Comment on above: Performed By: #### C BC, CMP, PAB #### [facility] [address] [place] [id number] [facility] AST [Catalytic activity/Vol] 22 U/L Normal 10-42 [facility] Comment on above: Performed By: #### C BC CMP, PAB #### [facility] [address] [place] [id number] [facility] Bilirubin [Mass/Vol] 0.5 mg/dL Normal 0.3-1.2 [facility] Comment on above: Performed By: #### C BC CMP, PAB #### [facility] [address] Calcium [Mass/Vol] 8.7 mg/dL Normal 8.2-10.2 [facility] Comment on above: Performed By: #### C JORGE CMP, PAB #### [facility] [address] Chloride [Moles/Vol] 105 mmol/L Normal 95-114 [facility] Comment on above: Performed By: #### C BC CMP, PAB #### [facility] [address] [place] [address] [place] CO2 [Moles/Vol] 26.8 mmol/L Normal 22.0-30.0 [facility] Comment on above: Performed By: #### C JORGE CMP, PAB #### [facility] [address] [place] [id number] [place] Creatinine [Mass/Vol] 0.51 mg/dL Normal 0.44-1.03 [facility] Comment on above: Performed By: #### C BC CMP, PAB #### [facility] [address] [place] [id number] [place] Creatinine Clr Calc Pharmacy 123.73 [facility] Comment on above: Performed By: #### C BC CMP, PAB #### [facility] [address] [place] [address] [place] Estimated GFR ( July > 60 Normal [facility] Comment on above: Result Comment: GFR estimated reference range: According to KDOQI guidelines, <60 ml/min/1.73m2 is sufficient to diagnose a patient with chronic kidney disease. Performed By: #### C BC CMP, PAB #### [facility] [address] Estimated GFR (Non- Am > 60 Normal [facility] Comment on above: Performed By: #### C DARIUS PATEL, PAB #### [facility] [address] Globulin (S) [Mass/Vol] 2.8 g/dL Normal [facility] Comment on above: Performed By: #### C JORGE CMP, PAB #### [address] Glucose [Mass/Vol] 115 mg/dL High 70-100 [facility] Comment on above: Result Comment: [facility] Glucose Reference Range is dependent on time and content of last meal. Glucose of more than 200 mg/dL in a nonstressed, ambulatory subject supports the diagnosis of Diabetes Mellitus. ADA recommended reference range Performed By: #### C DARIUS PATEL, PAB #### [address] Potassium [Moles/Vol] 3.7 mmol/L Normal 3.5-5.1 [facility] Comment on above: Performed By: #### C DARIUS PATEL, PAB #### [address] Protein [Mass/Vol] 5.6 g/dL Low 6.1-7.9 [facility] Comment on above: Performed By: #### C JORGE CMP, PAB #### [address] Sodium [Moles/Vol] 140 mmol/L Normal 136-146 [facility] Comment on above: Performed By: #### C JORGE CMP, PAB #### [address] Urea nitrogen [Mass/Vol] 7 mg/dL Low 9-23 [facility] Comment on above: Performed By: #### C BC, CMP, PAB #### [place] [address] [place] Dipstick and Microscopicon 0 2-25-2022 Appearance (U) Clear Normal Clear [facility] Comment on above: Order Comment: Name Collection Type:: Voided Performed By: #### A DDONUAPLUS, CUU #### [address] Bacteria,Urine 4+ High None Seen [facility] Comment on above: Order Comment: Name Collection Type:: Voided Performed By: #### A DDONUAPLUS, CUU #### [place] [address] [place] Bilirubin,Urine Negative Normal Negative [facility] Comment on above: Order Comment: Name Collection Type:: Voided Performed By: #### A DDONUAPLUS, CUU #### [address] Color (U) Yellow Normal Yellow [facility] Comment on above: Order Comment: Name Collection Type:: Voided Performed By: #### A DDONUAPLUS, CUU #### [address] Glucose Ql (U) Normal Normal Normal [facility] Comment on above: Order Comment: Name Collection Type:: Voided Performed By: #### A DDONUAPLUS, CUU #### [address] Hyaline Casts,Urine 0-8 Normal 0-8 [facility] Comment on above: Order Comment: Name Collection Type:: Voided Result Comment: PERF ORMED BY: [place] [address] PATHOLOGIST [employer] HUY COX M.D. Performed By: #### A DDONUAPLUS, CUU #### [place] [address] [place] Ketones Ql (U) Negative Normal Negative [facility] Comment on above: Order Comment: Name Collection Type:: Voided Performed By: #### A DDONUAPLUS, CUU #### [place] [address] [place] Leukocyte esterase Test strip Ql (U) 3+ High Negative [facility] Comment on above: Order Comment: Name Collection Type:: Voided Performed By: #### A DDONUAPLUS, CUU #### [address] Nitrite,Urine Positive High Negative [facility] Comment on above: Order Comment: Name Collection Type:: Voided Performed By: #### A DDONUAPLUS, CUU #### [address] Occult Blood,Urine Negative Normal Negative [facility] Comment on above: Order Comment: Name Collection Type:: Voided Result Comment: PERF ORMED BY: [place] [address] PATHOLOGIST [employer] HUY COX M.D. Performed By: #### A DDONUAPLUS, CUU #### [address] pH (U) 5.5 [pH] Normal 5.0-9.0 [facility] Comment on above: Order Comment: Name Collection Type:: Voided Performed By: #### A DDONUAPLUS, CUU #### [address] Protein,Urine Negative Normal Negative [facility] Comment on above: Order Comment: Name Collection Type:: Voided Performed By: #### A DDONUAPLUS, CUU #### [place] [address] [place] RBC LM.HPF (Urine sed) [#/Area] 0 /[HPF] Normal 0-4 [facility] Comment on above: Order Comment: Name Collection Type:: Voided Performed By: #### A DDONUAPLUS, CUU #### [place] [address] [place] Specificy [place],Urine 1.012 Normal 1.00 1-1.03 0 [facility] Comment on above: Order Comment: Name Collection Type:: Voided Performed By: #### A DDONUAPLUS, CUU #### [facility] [address] [place] [address] Squamous Epithelial Cell,Urine 0-1 Normal 0-2 [facility] Comment on above: Order Comment: Name Collection Type:: Voided Performed By: #### A DDONUAPLUS, CUU #### [address] Urobilinogen,Urine Normal Normal Normal [facility] Comment on above: Order Comment: Name Collection Type:: Voided Performed By: #### A DDONUAPLUS, CUU #### [address] WBC,Urine 20-49 High 0-4 [facility] Comment on above: Order Comment: Name Collection Type:: Voided Performed By: #### A DDONUAPLUS, CUU #### [address] Prealbuminon 10-30-2021 Prealbumin [Mass/Vol] 13.1 mg/dL Low 18.0-38.0 [facility] Comment on above: Result Comment: PERF ORMED BY: [place] [address] PATHOLOGIST [employer] HUY COX M.D. Performed By: #### C BC, CMP, PAB #### [address] Urine Cultureon 10-30-2021 Bacteria identified Cx Nom (U) ORGANISM: Escherichia coli (O:ESCCOL) Twining Count >100,000 Aerobic JOSE Charge (NUC86) SUSCEPTIBILITY [...] RESISTANT TO ALL B-LACTAM DRUGS. PERFORMED BY: [place] [address] PATHOLOGIST [employer] HUY COX M.D. Normal [facility] Comment on above: Performed By: #### A DDCHANTEUAKRIS, RUBIU #### [address] COVID-19 FRon 10-29-2021 SARS-CoV-2 (COVID-19) RNA ADRIÁN+probe Ql (Unsp spec) Negative Normal Negative [facility] Comment on above: Order Comment: Healt hcare Worker?: N Result Comment: Testing for SARS-CoV-2 by RT-PCR This test was developed and its performance characteristics determined by [employer] and validated at the [facility]. This test has not been [...] is terminated or revoked sooner. PERFORMED BY: [facility] [address] [place] [address] PATHOLOGIST [employer] HUY COX M.D. Performed By: #### C OVID 19 [facility] #### [facility] [address] Clinical Event Note-Need for Hospital Bedon [...] of the lumbar region. Provider/Team Contact Info-Pager [phone] Electronic Signatures: Sharmin Guaman (JUNIOR ELECTRICAL ENGINEER-LITIGATION SECRETARY) (Signed 02-Oct-2021 15:19) Authored: Clinical Event Note Last Updated: 02-Oct-2021 15:19 by Sharmin Guaman (JUNIOR ELECTRICAL ENGINEER-LITIGATION SECRETARY) Normal [facility] Clinical Event Note-Need for wheel [...] home, can self propel or has a memory care program resident to provide assistance. Provider/Team Contact Info-Pager [id number] Electronic Signatures: Sharmin Guaman (JUNIOR ELECTRICAL ENGINEER-LITIGATION SECRETARY) (Signed 02-Oct-2021 15:27) Authored: Clinical Event Note Last Updated: 02-Oct-2021 15:27 by Sharmin Guaman (JUNIOR ELECTRICAL ENGINEER-LITIGATION SECRETARY) Normal [facility] Daily Progress Note-Neurosur jinny 10-02-2021 Daily Progress Note-Neurosurgery Service: Neurosurgery Subjective Data: MORALES LEE is a 46 year old Female who is Hospital Day # 18 and POD #11 for posterior L4-L5 decompression;posterior L4-L5 arthrodesis. Objective Data: Objective Information: T PRBPSpO2 [id number]/8397% Date/Time1/28 1: 1: 1: 1: 1:28 Range(36.2C [...] 2021 10:00 pm000 Oct 01, 2021 2:00 [id number] The Intake and Output Totals for the [...] ------- Glucose -- 91 K+ HCO3- Creat \\ 4.1 26 0.44 L \\ Calcium : 8.5 LAnion Gap : 17 [...] the note. I personally evaluated the patient [id number] Electronic Signatures: Kenneth Philippe (Resident)) (Signed 02-Oct-2021 06:52) Authored: Service, Subjective Data, Objective Data, Assessment and Plan, Note Completion Lex Frederick) (Signed 02-Oct-2021 15:16) Authored: Note Completion Co-Signer: Service, Subjective Data, Objective Data, Assessment and Plan, Note Completion Last Updated: 02-Oct-2021 15:16 by Lex Frederick) [facility] Clinical Event Note-Discharg e discussionon [...] duration of trip. Electronic Signatures: Ambrocio Izaguirre (JUNIOR ELECTRICAL ENGINEER-LITIGATION SECRETARY) (Signed 01-Oct-2021 17:11) Authored: Clinical Event Note Last Updated: 01-Oct-2021 17:11 by Ambrocio Izaguirre (JUNIOR ELECTRICAL ENGINEER-LITIGATION SECRETARY) Normal [facility] Clinical Event Note-Need for hospital [...] when lying flat. Electronic Signatures: Ambrocio Izaguirre (JUNIOR ELECTRICAL ENGINEER-LITIGATION SECRETARY) (Signed 01-Oct-2021 14:48) Authored: Clinical Event Note Last Updated: 01-Oct-2021 14:48 by Ambrocio Izaguirre (JUNIOR ELECTRICAL ENGINEER-LITIGATION SECRETARY) Normal [facility] Daily Progress Note-Nuha leonidasgaurang 10-01-2021 Daily Progress Note-Neurosurgery Service: Neurosurgery Subjective Data: MORALES LEE is a 46 year old Female who is Hospital Day # 17 and POD #10 for posterior L4-L5 decompression;posterior L4-L5 arthrodesis. Objective Data: Objective Information: T PRBPSpO2 [id number]/7194% Date/Time10/01 0: 0: 0:381 0:381 0:38 Range(35.6C - 36.8C ) (64 - 96 ) (16 - 19 ) (94 - 138 )/ (59 - 83 ) (92% - 94% ) Pain reported at 09/30 9:00: 2 = Mild ---- Intake and Output ----- Mn/Dy/Year TimeIntakeOutputNet Sep 29, 2021 10:00 [id number] Sep 29, 2021 2:00 [id number] Sep 29, 2021 6:00 am000 The Intake [...] ------- Glucose -- 91 K+ HCO3- Creat \\ 4.1 26 0.44 L \\ Calcium : 8.5 LAnion Gap : 17 [...] Updated: 01-Oct-2021 10:29 by Lex Frederick) Normal [facility] Daily Progress Note-Neurosurgery This report has been cancelled. Normal [facility] Daily Progress Note-Nuha stearns 09-30-2021 Daily Progress Note-Neurosurgery Service: Neurosurgery Subjective Data: MORALES LEE is a 46 year old Female who is Hospital Day # 15 and POD #8 for posterior L4-L5 decompression;posterior L4-L5 arthrodesis. Objective Data: Objective Information: T PRBPSpO2 [id number]/7393% Date/Time09/29 16: 16: 16: 16: 16:00 Range(36C - 36.7C ) (67 - 86 ) (17 - 20 ) (94 - 153 )/ (15 - 113 ) (93% - 98% ) Pain reported at 09/29 9:56: 5 = Moderate ---- Intake and Output ----- Mn/Dy/Year TimeIntakeOutputNet Sep 29, 2021 2:00 [id number] Sep 29, 2021 6:00 am000 Sep 28, 2021 10:00 [id number] The Intake and Output Totals for the [...] ------- Glucose -- 91 K+ HCO3- Creat \\ 4.1 26 0.44 L \\ Calcium : 8.5 LAnion Gap : 17 [...] the note. I personally evaluated the patient [id number] Electronic Signatures: Lex Frederick) (Signed 30-Sep-2021 11:18) Authored: Note Completion Co-Signer: Service, Subjective Data, Objective Data, Assessment and Plan, Note Completion Jaya Mosquera (Resident)) (Signed 30-Sep-2021 03:18) Authored: Service, Subjective Data, Objective Data, Assessment and Plan, Note Completion Last Updated: 30-Sep-2021 11:18 by Lex Frederick) [facility] Rehab Mqmm-wv-rgzsjqhhf - co -tx /c OT to address multidiscipon 09-30-2021 Rehab Edcd-pc-qexjoqdjq - co-tx /c OT to address multidiscip Rehab: Info: Disciplinephysical director private music therapy agency Mode of Treatmentphysical therapy; co-treatment; co-tx /c OT to address multidisciplinary functional needs and maximize pt's safety. Time IN12:15 Time OUT12:55 Total Treatment [id number] Patient in ... at end of sessionbed, 3 railings up; alarm off; not on at start of visit Communicated with ... at end of sessionbedside nurse Patient Effortgood Symptoms Noted During/After Treatmentfatigue Treatment Considerations/CommentsEx tensive discussion /c amongst [employer], OT, and pt regarding her current physical [...] rolling right; rolling left; scooting/bridging Roll Left [place] (Bed Mobility)moderate assist (50% patient effort); 1 person assist; nonverbal cues (demo/gesture); verbal cues Roll Right [place] (Bed Mobility)moderate assist (50% patient effort); 1 person assist; nonverbal cues (demo/gesture); verbal cues Scoot/Bridge [place] (Bed Mobility)maximum assist (25% patient effort); 2 person assist; nonverbal cues (demo/gesture); verbal cues Hxedoo-sw-Wve [place] (Bed Mobility)maximum assist (25% patient effort); 2 person assist; nonverbal cues (demo/gesture); verbal cues Zfo-pp-Unyrua [place] (Bed Mobility)maximum assist (25% patient effort); 2 person assist; nonverbal cues (demo/gesture); verbal cues Assistive Device (Bed Mobility)bed rails; draw sheet Comment, Bed MobilityPt showing improvement in her ability to roll, performing 50% of AROM to achieve full rolling position. Transfer Assessment/Interventionss it to stand transfer; stand to sit transfer Comment, TransfersToday's session, OT and I utilized [employer] Stand device to assist pt into full [...] Pt repositioned back to sitting EOB. Sit-Stand [place] (Transfers)dependent (less than 25% patient effort) Sit-Stand Assistive Device (Transfers)mechanical lift/aid Stand-Sit [place] (Transfers)dependent (less than 25% patient effort) Stand-Sit [...] Score8 Short Term Goals: Bed Mobility: Date [id number]-5366 Bed Mobility: [place] Level Goalminimum assist (75% patients effort) Bed Mobility: Physical Assist Level Goal1-person assist, verbal cues Bed Mobility: Time Frame for Goal2 wks Transfer: Established [id number]-[id number] Transfer: Transfer Type Iwxecub-yb-btair/chair-to -bed; luy-gf-rrzpw/xiuqz-uh-wtr Transfer: [place] Level Goalmoderate assist (50% patients effort) Transfer: Physical Assist Level Goal1-person assist; verbal cues Transfer: Assistive Device Goalrolling walker Transfer: Time Frame for Goal2 wks Gait: Established [id number]-0911 Gait: [place] Level Goalmoderate assist (50% patients (more content not included)... Normal [facility] Rehab Note-occupational therapist assistants apy - co-tx with PT to maximizeon 09-30-2021 Rehab Note-occupational therapy - co-tx with PT to maximize Rehab: Info: Disciplineoccupational therapist Mode of Treatmentoccupational therapy; co-tx with PT to maximize pt's mobility and safety. Time IN12:15 Time OUT12:55 Total Treatment [id number] Patient in ... at end of sessionbed, [...] olling right; rolling left; scooting/bridging Roll Left [place] (Bed Mobility)moderate assist (50% patient effort); 1 person assist; nonverbal cues (demo/gesture); verbal cues Roll Right [place] (Bed Mobility)moderate assist (50% patient effort); 1 person assist; nonverbal cues (demo/gesture); verbal cues Scoot/Bridge [place] (Bed Mobility)maximum assist (25% patient effort); 2 [...] lower body dressing; upper body dressing; bathing [place] Level (Bathing)set up; verbal cues; moderate assist (50% patient effort); 1 person assist Comment (Bathing)anticipated due to impaired balance, strength, and pain. [place] Level (Upper Body Dressing)set up; verbal cues; moderate assist (50% patient effort) Comment (Upper Body Dressing)anticipated due to impaired balance, strength, and pain. [place] Level (Lower Body Dressing)don; socks; dependent (less than 25% patient effort) Position (Lower Body Dressing)supine [place] Level (Grooming)modified independence Comment (Grooming)Pt observed applying Orajel to gums, able to manage packaging, cap un/screwing, and application. [place] Level (Feeding)modified independence Comment (Feeding)Pt able to retrieve OJ cup from tray table at R side, bring to mouth, and drink appropriately. [place] Level (Toileting)dependent (less than 25% patient effort); [...] Score15 Short Term Goals: Bed Mobility: Date [id number]-Daq-8390 Bed Mobility: [place] Level Goalcontact guard Bed Mobility: Physical Assist Level Goalset-up, verbal cues Bed Mobility: Time Frame for Goal2 wks Transfer: Established Nobr27-Vas-6182 Transfer: Transfer Type Nwtwint-wo-gvgas/chair-to -bed; vxr-tb-fhjwm/cvysa-we-jhp ; toilet Transfer: [place] Level Goalminimum assist (75% patients effort) Transfer: Physical Assist Level Goalset-up; verbal cues; 1-person assist Transfer: Assistive Device GoalLRD Transfer: Time Frame for Goal2 wks Balance: Established [id number]-9578 Balance: Goal DetailsPt will perform ADL while reaching outside MADDIE and returning self to midline >8 minutes with set-up assist, SBA, and minimal verbal cues for safety. Enrique (more content not included)... Normal [facility] Daily Progress Note-Neurosjudy stearns 09-29-2021 Daily Progress Note-Neurosurgery Service: Neurosurgery Subjective Data: MORALES LEE is a 46 year old Female who is Hospital Day # 14 and POD #7 for posterior L4-L5 decompression;posterior L4-L5 arthrodesis. Objective Data: Objective Information: T PRBPSpO2 [id number]/6993% Date/Time09/28 4: 8: 8: 8: 8:00 Range(36C [...] 2021 6:00 am000 Sep 27, 2021 10:00 [id number] Sep 27, 2021 2:00 [id number] The Intake and Output Totals for the last 24 hours are: IntakeOutputNet [id number] Physical Exam by System: Neurological: A&Ox3 RUE D5, B5, T5, HG5, IO5 LUE D4+, B4+, T4+, HG4+, IO5 RLE HF 3, KE4-, PF1, DF0 LLE HF 4-, KE4-, PF2, DF1 Recent Lab Results: Results: RFP: 09/27/2021 14:14 NA+ Cl- BUN / 137 98 6 / ------- Glucose -- 91 K+ HCO3- Creat \\ 4.1 26 0.44 L \\ Calcium : 8.5 LAnion Gap : 17 [...] the note. I personally evaluated the patient [id number] Electronic Signatures: Lex Frederick) (Signed 29-Sep-2021 09:23) Authored: Note Completion Co-Signer: Service, Subjective Data, Objective Data, Assessment and Plan, Note Completion Jaya Mosquera (Resident)) (Signed 29-Sep-2021 03:01) Authored: Service, Subjective Data, Objective Data, Assessment and Plan, Note Completion Last Updated: 29-Sep-2021 09:23 by Lex Frederick) [facility] Rehab Flon-hh-dtuaklmgh - co -tx /c OT to address multidiscipon 09-29-2021 Rehab Fjha-tq-yoifzkqxz - co-tx /c OT to address multidiscip Rehab: Info: Disciplinephysical director private music therapy agency Mode of Treatmentphysical therapy; co-treatment; co-tx /c OT to address multidisciplinary functional needs and maximize pt's safety. Time IN14:30 Time OUT15:40 Total Treatment [id number] Patient in ... at end of sessionbed, [...] to sit; sit to supine Roll Left [place] (Bed Mobility)maximum assist (25% patient effort); 2 person assist; verbal cues; nonverbal cues (demo/gesture) Roll Right [place] (Bed Mobility)maximum assist (25% patient effort); 2 person assist; verbal cues; nonverbal cues (demo/gesture) Scoot/Bridge [place] (Bed Mobility)maximum assist (25% patient effort); 2 person assist; nonverbal cues (demo/gesture); verbal cues Mtwjdj-jj-Lsw [place] (Bed Mobility)maximum assist (25% patient effort); 2 person assist; nonverbal cues (demo/gesture); verbal cues Dze-jk-Pkdcug [place] (Bed Mobility)verbal cues; nonverbal cues (demo/gesture); maximum [...] Pt repositioned back to sitting EOB. Sit-Stand [place] (Transfers)dependent (less than 25% patient effort) Sit-Stand Assistive Device (Transfers)mechanical lift/aid Stand-Sit [place] (Transfers)dependent (less than 25% patient effort) Stand-Sit [...] Score8 Short Term Goals: Bed Mobility: Date [id number]-[id number] Bed Mobility: [place] Level Goalminimum assist (75% patients effort) Bed Mobility: Physical Assist Level Goal1-person assist, verbal cues Bed Mobility: Time Frame for Goal2 wks Transfer: Established [id number]-Dkv-6993 Transfer: Transfer Type Msednat-qx-iuptf/chair-to -bed; hmk-vk-eeuzr/dxfgz-bn-hxw Transfer: [place] Level Goalmoderate assist (50% patients effort) Transfer: Physical Assist Level Goal1-person assist; verbal cues Transfer: Assistive Device Goalrolling walker Transfer: Time Frame for Goal2 wks Gait: Established [id number]-7023 Gait: [place] Level Goalmoderate assist (50% patients effort) Gait: Physical Assist Level1-person assist; verbal cues Gait: Assistive Device Goalrolling walker Gait: Distance Goal15 feet Gait: Time Frame for Goal2 wks Balance: Established Fxmb68-Rdu-7719 Balance: Goal DetailsSitting EOB 20 minutes with 0-1 UE support, SBA for static sitting, CGA for dynamic. Standing 1 minute with FWW and CGA Education: Learnerpatient Topicrehab plan of care; discharge recommendations including destination and/or equipment Outcome Summary: Progress: Physical Therapyprogress towards functional goals is fair Outcome (more content not included)... Normal [facility] Rehab Note-occupational therapist assistants apy - co-tx with PT to maximizeon 09-29-2021 Rehab Note-occupational therapy - co-tx with PT to maximize Rehab: Info: Disciplineoccupational therapist Mode of Treatmentoccupational therapy; co-tx with PT to maximize pt's mobility and safety. Time IN14:30 Time OUT15:40 Total Treatment [id number] Patient in ... at end of sessionbed, [...] to sit; sit to supine Roll Left [place] (Bed Mobility)maximum assist (25% patient effort); 2 person assist; verbal cues; nonverbal cues (demo/gesture); multiple rolls to adjust harness Roll Right [place] (Bed Mobility)maximum assist (25% patient effort); 2 person assist; verbal cues; nonverbal cues (demo/gesture); multiple rolls to adjust harness Scoot/Bridge [place] (Bed Mobility)maximum assist (25% patient effort); 2 person assist; nonverbal cues (demo/gesture); verbal cues; boost HOB Wvxjet-xm-Xbz [place] (Bed Mobility)maximum assist (25% patient effort); 2 person assist; nonverbal cues (demo/gesture); verbal cues Fqu-hp-Wdwlsv [place] (Bed Mobility)verbal cues; nonverbal cues (demo/gesture); maximum assist (25% patient effort); 2 person assist Assistive Device (Bed Mobility)draw sheet; bed rails Transfer Assessment/Interventionss it to stand transfer; stand to sit transfer Sit-Stand [place] (Transfers)dependent (less than 25% patient effort) Sit-Stand Assistive Device (Transfers)mechanical lift/aid; Faye Plus Stand-Sit [place] (Transfers)dependent (less than 25% patient effort) Stand-Sit Assistive Device (Transfers)mechanical lift/aid; Faye Plus Safety Issues Impacting Function (Mobility)awareness of need for assistance; insight into deficits/self awareness Impairments Impacting Function (Mobility)endurance/activ ity tolerance; strength; balance; coordination; postural/trunk control ADL: BADL Assessment/Interventionto ileting; feeding; grooming; lower body dressing; upper body dressing; bathing [place] Level (Bathing)set up; verbal cues; moderate assist (50% patient effort); 1 person assist Comment (Bathing)anticipated due to impaired balance, strength, and pain. [place] Level (Upper Body Dressing)set up; verbal cues; moderate assist (50% patient effort) Comment (Upper Body Dressing)anticipated due to impaired balance, strength, and pain. [place] Level (Lower Body Dressing)don; socks; dependent (less than 25% patient effort) Position (Lower Body Dressing)supine [place] Level (Grooming)set up; contact guard Comment (Grooming)anticipated due to impaired balance, strength, and pain. [place] Level (Feeding)set up; modified independence Comment (Feeding)anticipated [place] Level (Toileting)dependent (less than 25% patient effort); purewick Impairments, BADL Safety/Performancebalance ; cognition; endurance/activity tolerance; strength; trunk/postural control Cognitive Impairments, BADL Safety/Performanceawarene ss, need for assistance; insight into deficits/self awareness; judgment; problem solving/reasoning Motor: Sitting, Static (Balance)good balance SBA Sitting, Dynamic (Balance)fair balance CGA Deg-kz-Kdcps (Balance)poor balance Total A via Faye Plus lift Standing, Static (Balance)poor balance Max A x1 - via Faye Plus Standing, Dynamic (Balance)unable to balance Balance ActivitiesPt sat EOB ~20 minutes throughout session primarily with SB (more content not included)... Normal [facility] Clinical Event Note-Medical Assessmenton 09-28-2021 [...] oil enema alternating with tap water enema H2Kvwqb - Bisacodyl suppository QHS Daily - Monitor [...] note 45 minutes; Electronic Signatures: Concetta Shi (JUNIOR ELECTRICAL ENGINEER-LITIGATION SECRETARY) (Signed 28-Sep-2021 14:31) Authored: Clinical Event Note Last Updated: 28-Sep-2021 14:31 by Concetta Shi (JUNIOR ELECTRICAL ENGINEER-LITIGATION SECRETARY) Normal [facility] Daily Progress Note-Gastroen terologyon 09-28-2021 Daily Progress Note-Gastroenterology Service: Gastroenterology Subjective Data: MORALES LEE is a 46 year old Female who is Hospital Day # 14 and POD #7 for posterior L4-L5 decompression;posterior L4-L5 arthrodesis. No events overnight. Had one bowel movement this am. Otherwise no complaints. Objective Data: Objective Information: T PRBPSpO2 [id number]/6993% Date/Time09/28 4: 8: 8: 8: 8:00 Range(36C [...] 2021 6:00 am000 Sep 27, 2021 10:00 [id number] Sep 27, 2021 2:00 [id number] The Intake and Output Totals for the last 24 hours are: IntakeOutputNet [id number] Physical Exam by System: Constitutional: Constitutional: A&Ox3, [...] ------- Glucose -- 91 K+ HCO3- Creat \\ 4.1 26 0.44 L \\ Calcium : 8.5 LAnion Gap : 17 [...] recommend tr (more content not included)... Normal [facility] Daily Progress Note-Nuha jinny 09-28-2021 Daily Progress Note-Neurosurgery Service: Neurosurgery Subjective Data: MORALES LEE is a 46 year old Female who is Hospital Day # 14 and POD #7 for posterior L4-L5 decompression;posterior L4-L5 arthrodesis. Objective Data: Objective Information: T PRBPSpO2 [id number]/4893% Date/Time09/28 4: 4: 4: 4: 4:00 Range(36C - 36.6C ) (72 - 87 ) (15 - 22 ) (92 - 153 )/ (48 - 113 ) (92% - 99% ) As of 27-Sep-2021 22:00:00, patient is on 2 L/min of oxygen via nasal cannula. Pain reported at 09/27 22:00: 0 = None ---- Intake and Output ----- Mn/Dy/Year TimeIntakeOutputNet Sep 26, 2021 10:00 [id number] Sep 26, 2021 2:00 [id number] The Intake and Output Totals for the last 24 hours are: IntakeOutputNet [id number] Physical Exam by System: Neurological: A&Ox3 RUE D5, B5, T5, HG5, IO5 LUE D4+, B4+, T4+, HG4+, IO5 RLE HF 3, KE4-, PF1, DF0 LLE HF 4-, KE4-, PF2, DF1 Recent Lab Results: Results: RFP: 09/27/2021 14:14 NA+ Cl- BUN / 137 98 6 / ------- Glucose -- 91 K+ HCO3- Creat \\ 4.1 26 0.44 L \\ Calcium : 8.5 LAnion Gap : 17 [...] the note. I personally evaluated the patient [id number] Electronic Signatures: Fidel Maciel (Resident)) (Signed 28-Sep-2021 05:47) Authored: Service, Subjective Data, Objective Data, Assessment and Plan, Note Completion Lex Frederick) (Signed 28-Sep-2021 07:32) Authored: Note Completion Co-Signer: Service, Subjective Data, Objective Data, Assessment and Plan, Note Completion Last Updated: 28-Sep-2021 07:32 by Lex Frederick) Normal [facility] RENAL FUNCTION PANELon 09-28 Albumin [Mass/Vol] 3.1 g/dL Low 3.4 - 5.0 [facility] Comment on above: Performed By: #### R ENAL ####[id number] [place] [address] Anion gap [Moles/Vol] 17 mmol/L Normal 10 - 20 [facility] Comment on above: Performed By: #### R ENAL ####[id number] [place] [address] Calcium [Mass/Vol] 8.4 mg/dL Low 8.6 - 10.6 [facility] Comment on above: Performed By: #### R ENAL ####[id number] [place] [address] Chloride [Moles/Vol] 102 mmol/L Normal 98 - 107 [facility] Comment on above: Performed By: #### R ENAL ####[id number] [place] [address] Creatinine [Mass/Vol] 0.47 mg/dL Low 0.50 - 1.05 [facility] Comment on above: Performed By: #### R ENAL ####[id number] [place] [address] eGFR FEMALE >90 Normal >90 [facility] Comment on above: Result Comment: CALC ULATIONS OF ESTIMATED GFR ARE PERFORMED USING THE 2020 CKD-EPI STUDY REFIT EQUATION WITHOUT THE RACE VARIABLE FOR THE IDMS-TRACEABLE CREATININE METHODS. https://jasn.asnjournals.org/content//ASN.604 7518258 Performed By: #### R ENAL ####[id number] [place] [address] Glucose [Mass/Vol] 74 mg/dL Normal 74 - 99 [facility] Comment on above: Performed By: #### R ENAL ####[id number] [place] [address] HCO3 (Bld) [Moles/Vol] 27 mmol/L Normal 21 - 32 [facility] Comment on above: Performed By: #### R ENAL ####[id number] [place] [address] Phosphate [Mass/Vol] 3.4 mg/dL Normal 2.5 - 4.9 [facility] Comment on above: Result Comment: The performance characteristics of phosphorus testing in heparinized plasma have been validated by the individual laboratory site where testing is performed. Testing on heparinized plasma is not approved by the FDA; however, such approval is not necessary. Performed By: #### R ENAL ####[id number] [place] [address] Potassium [Moles/Vol] 3.7 mmol/L Normal 3.5 - 5.3 [facility] Comment on above: Performed By: #### R ENAL ####[id number] [place] [address] Sodium [Moles/Vol] 142 mmol/L Normal 136 - 145 [facility] Comment on above: Performed By: #### R ENAL ####[id number] [place] [address] Urea nitrogen [Mass/Vol] 6 mg/dL Normal 6 - 23 [facility] Comment on above: Performed By: #### R ENAL ####[id number] [place] [address] Radiologyon 09-28-2021 XR Abdomen AP Normal MG-Gastroen terology-Rosendo hernandesell 6 I Work Phone: Rehab Note-attemptedon 09-28 Rehab Note-attempted Rehab: Info: Disciplinephysical director private music therapy agency Mode of Treatmentattempted Time IN15:30 Reason Treatment Not Performedpatient/family declined treatment, not feeling well Treatment Considerations/CommentsPt declined therapy at this time 2* increased fatigue, nausea. Pt stated NO! NO! NO! upon therapists arrival, even /c increased encouragement. Will reattempt as schedule allows. Short Term Goals: Bed Mobility: Date [id number]-Diy-3329 Bed Mobility: [place] Level Goalminimum assist (75% patients effort) Bed Mobility: Physical Assist Level Goal1-person assist, verbal cues Bed Mobility: Time Frame for Goal2 wks Transfer: Established [id number]-Osf-1677 Transfer: Transfer Type Ylexahy-np-qetkm/chair-to -bed; ygi-lv-pfgoe/rtojk-gg-eql Transfer: [place] Level Goalmoderate assist (50% patients effort) Transfer: Physical Assist Level Goal1-person assist; verbal cues Transfer: Assistive Device Goalrolling walker Transfer: Time Frame for Goal2 wks Gait: Established [id number]-Npn-5662 Gait: [place] Level Goalmoderate assist (50% patients effort) Gait: Physical Assist Level1-person assist; verbal cues Gait: Assistive Device Goalrolling walker Gait: Distance Goal15 feet Gait: Time Frame for Goal2 wks Balance: Established Yinp46-Zfk-3380 Balance: Goal DetailsSitting EOB 20 minutes with 0-1 UE support, SBA for static sitting, CGA for dynamic. Standing 1 minute with FWW and CGA Electronic Signatures: Yosi Campbell ([employer]) (Signed 28-Sep-2021 15:32) Entered: Short Term Goals, Info Authored: Deon, Short Term Goals Boone Broussard (PT) (Signed 01-Oct-2021 09:01) Co-Signer: Short Term Goals, Info Last Updated: 01-Oct-2021 09:01 by Boone Broussard (PT) Normal [facility] Rehab Note-attempted Rehab: Info: Mode [...] 28-Sep-2021 15:28 by Silvana Marshall (OT) Normal [facility] Renal Function Panelon 09-28 Albumin [...] RACE VARIABLE FOR THE IDMS-TRACEABLE CREATININE METHODS.https://jasn.asnjournals.org/content/early /ASN.3569699865 TH ABDOMEN AP VIEWon 022 ABDOMEN AP VIEW Patient Name: MORALES LEE STUDY: ABDOMEN AP VIEW; 09/28/2021 1:22 pm INDICATION: Abd. dist. . COMPARISON: 09/27/2021 abdominal radiograph. ACCESSION NUMBER(S): [id number] ORDERING CLINICIAN: CONCETTA SHI FINDINGS: Two AP [...] as stated. This study was interpreted at [facility], [place], [place]. 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 Has been on scheduled bowel regimen [...] penicillin: Unknown Objective: Objective Information: T PRBPSpO2 [id number]/55485% Date/Time09/27 4: 4: 4:001 4:00 Range (76 [...] C6-7 ACDFF, (more content not included)... Normal [facility] Daily Progress Note-Neurosur jinny 09-27-2021 Daily Progress Note-Neurosurgery Service: Neurosurgery Subjective Data: MORALES LEE is a 46 year old Female who is Hospital Day # 13 and POD #6 for posterior L4-L5 decompression;posterior L4-L5 arthrodesis. Objective Data: Objective Information: T PRBPSpO2 [id number]/23326% Date/Time09/26 11:0809/27 4: 4: 4: 4:00 Range(37C [...] 2021 6:00 am000 Sep 26, 2021 10:00 [id number] Sep 26, 2021 2:00 [id number] The Intake and Output Totals for the last 24 hours are: IntakeOutputNet [id number] Physical Exam by System: Neurological: A&Ox3 RUE D5, B5, T5, HG5, IO5 LUE D4+, B4+, T4+, HG4+, IO5 RLE HF 3, KE4-, PF1, DF1 LLE HF 4-, KE4-, PF1, DF0 Recent Lab Results: Results: RFP: 09/24/2021 06:20 NA+ Cl- BUN / 143 108 H 5 L / ------- Glucose -- 92 K+ HCO3- Creat \\ 3.9 29 0.39 L \\ Calcium : 7.7 LAnion Gap : 10 [...] the note. I personally evaluated the patient [id number] Electronic Signatures: Chaparro Umana (Resident)) (Signed 27-Sep-2021 06:11) Authored: Service, Subjective Data, Objective Data, Assessment and Plan, Note Completion Natalia Palacios) (Signed 08-Oct-2021 14:31) Authored: Note Completion Co-Signer: Service, Subjective Data, Objective Data, Assessment and Plan, Note Completion Last Updated: 08-Oct-2021 14:31 by Natalia Palacios) Normal [facility] MAGNESIUMon 09-27-2021 Magnesium [Mass/Vol] 1.80 mg/dL Normal 1.60 - 2.40 [facility] Comment on above: Performed By: #### C BC #### [facility] [address] [place] [address] Magnesium, Serumon Magnesium [Mass/Vol] 1.80 mg/dL See Below MG-G astroen terraiza-Rosendo moura [address] [facility] Work Phone: Comment on above: Reference Range: 1.6 0 - 2.40 RENAL FUNCTION PANELon 09-27 Albumin [Mass/Vol] 3.3 g/dL Low 3.4 - 5.0 [facility] Comment on above: Performed By: #### R ENAL #### [facility] [address] [place] [address] Anion gap [Moles/Vol] 17 mmol/L Normal 10 - 20 [facility] Comment on above: Performed By: #### R ENAL #### [facility] [address] [place] [address] Calcium [Mass/Vol] 8.5 mg/dL Low 8.6 - 10.6 [facility] Comment on above: Performed By: #### R ENAL #### [facility] [address] [place] [address] Chloride [Moles/Vol] 98 mmol/L Normal 98 - 107 [facility] Comment on above: Performed By: #### R ENAL #### [facility] [address] [place] [address] Creatinine [Mass/Vol] 0.44 mg/dL Low 0.50 - 1.05 [facility] Comment on above: Performed By: #### R ENAL #### [facility] [address] [place] [address] eGFR FEMALE >90 Normal >90 [facility] Comment on above: Result Comment: CALC ULATIONS OF ESTIMATED GFR ARE PERFORMED USING THE 2020 CKD-EPI STUDY REFIT EQUATION WITHOUT THE RACE VARIABLE FOR THE IDMS-TRACEABLE CREATININE METHODS. https://jasn.asnjournals.org/content//ASN.980 0209767 Performed By: #### R ENAL #### [facility] [address] [place] [address] Glucose [Mass/Vol] 91 mg/dL Normal 74 - 99 [facility] Comment on above: Performed By: #### R ENAL #### [facility] [address] [place] [address] HCO3 (Bld) [Moles/Vol] 26 mmol/L Normal 21 - 32 [facility] Comment on above: Performed By: #### R ENAL #### [facility] [address] [place] [address] Phosphate [Mass/Vol] 4.0 mg/dL Normal 2.5 - 4.9 [facility] Comment on above: Result Comment: The performance characteristics of phosphorus testing in heparinized plasma have been validated by the individual laboratory site where testing is performed. Testing on heparinized plasma is not approved by the FDA; however, such approval is not necessary. Performed By: #### R ENAL #### [facility] [address] [place] [address] Potassium [Moles/Vol] 4.1 mmol/L Normal 3.5 - 5.3 [facility] Comment on above: Performed By: #### R ENAL #### [facility] [address] [place] [address] Sodium [Moles/Vol] 137 mmol/L Normal 136 - 145 [facility] Comment on above: Performed By: #### R ENAL #### [facility] [address] [place] [address] Urea nitrogen [Mass/Vol] 6 mg/dL Normal 6 - 23 [facility] Comment on above: Performed By: #### R ENAL #### [facility] [address] [place] [address] Radiologyon 09-27-2021 XR Abdomen AP Normal MG-Gastroen [...] RACE VARIABLE FOR THE IDMS-TRACEABLE CREATININE METHODS.https://jasn.asnjournals.org/content/early/ /ASN.5771909939 ABDOMEN AP VIEWon 022 ABDOMEN AP VIEW Patient Name: JESUS MORALES STUDY: ABDOMEN AP VIEW; 09/27/2021 2:33 am INDICATION: vomiting, constipation . COMPARISON: None. ACCESSION NUMBER(S): [id number] ORDERING CLINICIAN: FIDEL MACIEL FINDINGS: 2 AP [...] as stated. This study was interpreted at [place], [place]. Electronically signed by: DWIGHT MOY MD [facility] Daily Progress Note-Neurosjudy stearns 09-26-2021 Daily Progress Note-Neurosurgery Service: Neurosurgery Subjective Data: MORALES LEE is a 46 year old Female who is Hospital Day # 12 and POD #5 for posterior L4-L5 decompression;posterior L4-L5 arthrodesis. Objective Data: Objective Information: T PRBPSpO2 [id number]/8299% Date/Time09/25 17: 12:001 17: 17:08 Range (68 - 98 ) (21 - 23 ) (118 - 136 )/ (69 - 82 ) (92% - 99% ) Pain reported at 09/26 3:00: sleeping ---- Intake and Output ----- Mn/Dy/Year TimeIntakeOutputNet Sep 24, 2021 10:00 [id number] Sep 24, 2021 2:00 [id number] Sep 24, 2021 6:00 [id number] The Intake and Output Totals for the last 24 hours are: IntakeOutputNet [id number] Physical Exam by System: Neurological: A&Ox3 RUE D5, B5, T5, HG5, IO5 LUE D4+, B4+, T4+, HG4+, IO5 RLE HF 3, KE4-, PF1, DF1 LLE HF 4-, KE4-, PF1, DF0 Recent Lab Results: Results: RFP: 09/24/2021 06:20 NA+ Cl- BUN / 143 108 H 5 L / ------- Glucose -- 92 K+ HCO3- Creat \\ 3.9 29 0.39 L \\ Calcium : 7.7 LAnion Gap : 10 [...] the note. I personally evaluated the patient [id number] Electronic Signatures: Jaya Mosquera ( (Resident)) (Signed 26-Sep-2021 07:08) Authored: Service, Subjective Data, Objective Data, Assessment and Plan, Note Completion Natalia Palacios) (Signed 08-Oct-2021 14:10) Authored: Note Completion Co-Signer: Service, Subjective Data, Objective Data, Assessment and Plan, Note Completion Last Updated: 08-Oct-2021 14:10 by Natalia Palacios) Normal [facility] Clinical Event Note-POD 4 / [...] plan of care. Electronic Signatures: Concetta Shi (JUNIOR ELECTRICAL ENGINEER-LITIGATION SECRETARY) (Signed 25-Sep-2021 13:30) Authored: Clinical Event Note Last Updated: 25-Sep-2021 13:30 by Concetta Shi (JUNIOR ELECTRICAL ENGINEER-LITIGATION SECRETARY) Normal [facility] Daily Progress Note-Nuha stearns 09-25-2021 Daily Progress Note-Neurosurgery Service: Neurosurgery Subjective Data: MORALES LEE is a 46 year old Female who is Hospital Day # 11 and POD #4 for posterior L4-L5 decompression;posterior L4-L5 arthrodesis. Objective Data: Objective Information: T PRBPSpO2 [id number]/6799% Date/Time09/24 16: 16:: 16:00 Range (68 - 78 ) (18 - 19 ) (102 - 117 )/ (57 - 73 ) (95% - 99% ) As of 24-Sep-2021 21:40:00, patient is on 2 L/min of oxygen via nasal cannula. Pain reported at 09/24 21:40: 8 = Severe ---- Intake and Output ----- Mn/Dy/[facility] Sep 23, 2021 10:00 [id number] Sep 23, 2021 6:00 [id number] The Intake and Output Totals for the last 24 hours are: [facility]akeOutEC[facility] [id number] Physical Exam by System: Neurological: A&Ox3 RUE D5, B5, T5, HG5, IO5 LUE D4+, B4+, T4+, HG4+, IO5 RLE HF 3, KE4-, PF1, DF1 LLE HF 4-, KE4-, PF1, DF0 Recent Lab Results: Results: RFP: 09/24/2021 06:20 NA+ Cl- BUN / 143 108 H 5 L / ------- Glucose -- 92 K+ HCO3- Creat \\ 3.9 29 0.39 L \\ Calcium : 7.7 LAnion Gap : 10 [...] the note. I personally evaluated the patient [id number] Electronic Signatures: Lex Frederick) (Signed 25-Sep-2021 11:57) Authored: Note Completion Co-Signer: Service, Subjective Data, Objective Data, Assessment and Plan, Note Completion Alfredo Hendrickson (Resident)) (Signed 25-Sep-2021 05:56) Authored: Service, Subjective Data, Objective Data, Assessment and Plan, Note Completion Last Updated: 25-Sep-2021 11:57 by Lex Frederick) [facility] Rehab Kqfx-it-qpwhmwuww - co -tx /c OT to address multidiscipon 09-25-2021 Rehab Hexn-rs-qwghmvlpb - co-tx /c OT to address multidiscip Rehab: Info: Disciplinephysical director private music therapy agency Mode of Treatmentphysical therapy; co-treatment; co-tx /c OT to address multidisciplinary functional needs and maximize pt's safety. Time IN15:05 Time OUT15:59 Total Treatment [id number] Patient in ... at end of sessionbed, [...] scooting/bridging; rolling right; rolling left Roll Left Wasatch (Bed Mobility)maximum assist (25% patient effort); 2 person assist; verbal cues; nonverbal cues (demo/gesture) Roll Right Wasatch (Bed Mobility)maximum assist (25% patient effort); 2 person assist; verbal cues; nonverbal cues (demo/gesture) Scoot/Bridge Wasatch (Bed Mobility)maximum assist (25% patient effort); 2 person assist; nonverbal cues (demo/gesture); verbal cues Mszvly-my-Xvf Wasatch (Bed Mobility)maximum assist (25% patient effort); 2 person assist; verbal cues; nonverbal cues (demo/gesture) Cpq-nx-Utaxkw Wasatch (Bed Mobility)maximum assist (25% patient effort); 2 [...] unable to get to full standing. Sit-Stand Wasatch (Transfers)maximum assist (25% patient effort); verbal cues; nonverbal cues (demo/gesture); 2-3 persona assist Sit-Stand Assistive Device (Transfers)walker, front-wheeled Stand-Sit Wasatch (Transfers)maximum assist (25% patient effort); nonverbal cues [...] Score8 Short Term Goals: Bed Mobility: Date [id number] Bed Mobility: Wasatch Level Goalminimum assist (75% patients effort) Bed Mobility: Physical Assist Level Goal1-person assist, verbal cues Bed Mobility: Time Frame for Goal2 wks Transfer: Established [id number] Transfer: Transfer Type Mijyggn-ks-wdlls/chair-to -bed; jhf-hk-asmfc/ievnv-az-rsd Transfer: Wasatch Level Goalmoderate assist (50% patients effort) Transfer: Physical Assist Level Goal1-person assist; verbal cues Transfer: Assistive Device Goalrolling walker Transfer: Time Frame for Goal2 wks Gait: Established Gait: Wasatch Level Goalmoderate assist (50% patients effort) Gait: [...] goals is gradual Electronic Signatures: Yosi Campbell ([employer]) (Signed 25-Sep-2021 16:59) Entered: Outcome Summary, Short Term Goals, Sensory, TherEx, Outcomes Tools, Info, Mobility/Tone Authored: Short Term Goals, Outcome Summary, TherEx, Outcomes Tools, Info, Mobility/Tone, Sensory Boone Broussard (PT) (Signed 01-Oct-2021 09:01) Co-Signer: Outcome Summary, Short Term Goals, Sensory, TherEx (more content not included)... Normal [facility] Rehab Note-occupational therapist assistants apy - Partial co-tx with PT to tue09-25-2021 Rehab Note-occupational therapy - Partial co-tx with PT to Rehab: Info: Disciplineoccupational therapist Mode of Treatmentoccupational therapy; Partial co-tx with PT to maximize pt's mobility and safety. Time IN15:03 Time OUT15:56 Total Treatment [id number] Patient in ... at end of sessionbed, [...] sit to supine; rolling right Roll Left Wasatch (Bed Mobility)Pt required assist to bend BLE at knees and to initiate turn at shoulders and hips, verbal cues for grasp on bed rail, technique, direction follow, and encouragement.; set up; verbal cues; maximum assist (25% patient effort); 2 person assist Roll Right Wasatch (Bed Mobility)Pt required assist to bend BLE at knees and to initiate turn at shoulders and hips, verbal cues for grasp on bed rail, technique, direction follow, and encouragement.; set up; verbal cues; maximum assist (25% patient effort); 2 person assist Scoot/Bridge Wasatch (Bed Mobility)boost HOB; set up; verbal cues; maximum assist (25% patient effort); 2 person assist Dluinn-fm-Zmk Wasatch (Bed Mobility)HOB elevated; set up; verbal cues; maximum assist (25% patient effort); 2 person assist Ljq-gx-Upkxat Wasatch (Bed Mobility)HOB elevated; set up; verbal cues; maximum assist (25% patient effort); 2 person assist Assistive Device (Bed Mobility)bed rails; draw sheet Transfer Assessment/Interventionss it to stand transfer Sit-Stand Wasatch (Transfers)set up; verbal cues; maximum assist (25% patient effort); x 2-3 assist Safety Issues Impacting Function (Mobility)ability to follow commands; awareness of need for assistance; insight into deficits/self awareness; judgment; problem solving Impairments Impacting Function (Mobility)balance; cognition; endurance/activity tolerance; pain; strength; postural/trunk control ADL: BADL Assessment/Interventionto ileting; feeding; grooming; lower body dressing; upper body dressing; bathing Wasatch Level (Bathing)set up; verbal cues; moderate assist (50% patient effort); 1 person assist Comment (Bathing)anticipated due to impaired balance, strength, and pain. Wasatch Level (Upper Body Dressing)set up; verbal cues; moderate assist (50% patient effort) Comment (Upper Body Dressing)anticipated due to impaired balance, strength, and pain. Wasatch Level (Lower Body Dressing)don; socks; dependent (less than 25% patient effort) Position (Lower Body Dressing)supine Wasatch Level (Grooming)set up; contact guard Comment (Grooming)anticipated due to impaired balance, strength, and pain. Wasatch Level (Feeding)set up; modified independence Comment (Feeding)anticipated Wasatch Level (Toileting)dependent (less than 25% patient effort); purewick Impairments, BADL Safety/Performancebalance ; cognition; endurance/activity tolerance; strength; trunk/postural control Cognitive Impairments, BADL Safety/Performanceawarene ss, need for assistance; insight into deficits/self awareness; judgment; problem solving/reasoning Motor: Sitting, Static (Balance)good balance SBA Sitting, Dynamic (Balance)fair balance CGA Nhk-qz-Lczxl (Balance)poor balance Max A x 2-3 - attempted Standing, Static (Balance)unable to balance Standing, Dynamic (Balance)unable to balance Balance ActivitiesPt sat EOB ~30 minutes with SBA/CGA for safety. Pt demonstrated good sitting balance and trunk control. Pt attempted STS transfers 3x with (more content not included)... Normal [facility] Daily Progress Note-Nuha stearns 09-24-2021 Daily Progress Note-Neurosurgery Service: Neurosurgery Subjective Data: MORALES LEE is a 46 year old Female who is Hospital Day # 10 and POD #3 for posterior L4-L5 decompression;posterior L4-L5 arthrodesis. Objective Data: Objective Information: T PRBPSpO2 [id number]/5499% Date/Time09/23 20:4809/23 20: 20: 20: 20:48 Range(35.5C - 36.1C ) (66 - 75 ) (16 - 19 ) (90 - 118 )/ (54 - 75 ) (98% - 99% ) As of 23-Sep-2021 22:43:00, patient is on 2 L/min of oxygen via nasal cannula. ---- Intake and Output ----- Mn/Dy/Year TimeIntakeOutputNet Sep 22, 2021 10:00 [id number] Sep 22, 2021 2:00 [id number] Sep 22, 2021 6:00 [id number] The Intake and Output Totals for the last 24 hours are: IntakeOutputNet [id number] Physical Exam by System: Neurological: A&Ox3 RUE D5, B5, T5, HG5, IO5 LUE D4+, B4+, T4+, HG4+, IO5 RLE HF 3, KE4-, PF1, DF0 LLE HF 4-, KE4-, PF1, DF0 Recent Lab Results: Results: CBC: 09/23/2021 12:45 \\ Hgb / \\ 10.4 L / WBC Plt 7.6 228 / Hct \\ / 30.9 L \\ RBC: 3.39 L MCV: 91 Neutrophil %: 57.2 RFP: 09/23/2021 05:13 NA+ Cl- BUN / 143 108 H 9 / ------- Glucose -- 87 K+ HCO3- Creat \\ 3.6 29 0.39 L \\ Calcium : 7.9 LAnion Gap : 10 [...] the note. I personally evaluated the patient [id number] Comments/ Additional Findings Doing well. Kyphotic posture and Back Pain from instability and traumatic chance fracture significantly improved as compared to preop. She developed weakness involving ankle PF/DF following bahai of alignment from buckling of hypertrophic ligamentum [...] for ambulation and PT for now and shelter if the weakness fails to improve over [...] to the (more content not included)... Normal [facility] MAGNESIUMon 09-24-2021 Magnesium [Mass/Vol] 1.71 mg/dL Normal 1.60 - 2.40 [facility] Comment on above: Performed By: #### A FPA3 #### [facility] [address] [place] [address] Magnesium, Serumon Magnesium [Mass/Vol] 1.71 mg/dL See Below MG-G astroen terology-Rosendo moura [address] [facility] Work Phone: Comment on above: Reference Range: 1.6 0 - 2.40 RENAL FUNCTION PANELon 09-24 Albumin [Mass/Vol] 2.6 g/dL Low 3.4 - 5.0 [facility] Comment on above: Performed By: #### R ENAL ####[id number] [place] [address] Anion gap [Moles/Vol] 10 mmol/L Normal 10 - 20 [facility] Comment on above: Performed By: #### R ENAL ####[id number] [place] [address] Calcium [Mass/Vol] 7.7 mg/dL Low 8.6 - 10.6 [facility] Comment on above: Performed By: #### R ENAL ####[id number] [place] [address] Chloride [Moles/Vol] 108 mmol/L High 98 - 107 [facility] Comment on above: Performed By: #### R ENAL ####[id number] [place] [address] Creatinine [Mass/Vol] 0.39 mg/dL Low 0.50 - 1.05 [facility] Comment on above: Performed By: #### R ENAL ####[id number] [place] [address] eGFR FEMALE >90 Normal >90 [facility] Comment on above: Result Comment: CALC ULATIONS OF ESTIMATED GFR ARE PERFORMED USING THE 2020 CKD-EPI STUDY REFIT EQUATION WITHOUT THE RACE VARIABLE FOR THE IDMS-TRACEABLE CREATININE METHODS. https://jasn.asnjournals.org/content//ASN.923 7417465 Performed By: #### R ENAL ####[id number] [place] [address] Glucose [Mass/Vol] 92 mg/dL Normal 74 - 99 [facility] Comment on above: Performed By: #### R ENAL ####[id number] [place] [address] HCO3 (Bld) [Moles/Vol] 29 mmol/L Normal 21 - 32 [facility] Comment on above: Performed By: #### R ENAL ####[id number] [place] [address] Phosphate [Mass/Vol] 3.3 mg/dL Normal 2.5 - 4.9 [facility] Comment on above: Result Comment: The performance characteristics of phosphorus testing in heparinized plasma have been validated by the individual laboratory site where testing is performed. Testing on heparinized plasma is not approved by the FDA; however, such approval is not necessary. Performed By: #### R ENAL ####[id number] [place] [address] Potassium [Moles/Vol] 3.9 mmol/L Normal 3.5 - 5.3 [facility] Comment on above: Performed By: #### R ENAL ####[id number] [place] [address] Sodium [Moles/Vol] 143 mmol/L Normal 136 - 145 [facility] Comment on above: Performed By: #### R ENAL ####[id number] [place] [address] Urea nitrogen [Mass/Vol] 5 mg/dL Low 6 - 23 [facility] Comment on above: Performed By: #### R ENAL ####[id number] [place] [address] Rehab Note-attemptedon 09-24 Rehab Note-attempted Rehab: Info: Mode of Treatmentattempted Time IN15:00 Reason Treatment Not Performedpatient/family declined treatment; Pt declined participation in OT treatment stating she was on a very important call that she needed to take. Electronic Signatures: Silvana Marshall (OT) (Signed 24-Sep-2021 15:29) Authored: Info Last Updated: 24-Sep-2021 15:29 by Silvana Marshall (OT) Normal [facility] Rehab Note-physical therapyo n 09-24-2021 [...] 24-Sep-2021 15:07 by Boone Broussard (PT) Normal [facility] Renal Function Panelon 09-24 Albumin [...] RACE VARIABLE FOR THE IDMS-TRACEABLE CREATININE METHODS.https://jasn.asnjournals.org/content/early /ASN.5422583367 CBCon 09-23-2021 Erythrocyte distribution width (RBC) [Ratio] 13.1 % Normal 11.5 - 14.5 [facility] Comment on above: Performed By: #### C BC ####[id number] [place] [address] Hematocrit (Bld) [Volume fraction] 30.5 % Low 36.0 - 46.0 [facility] Comment on above: Performed By: #### C BC ####[id number] [place] [address] Hemoglobin (Bld) [Mass/Vol] 9.9 g/dL Low 12.0 - 16.0 [facility] Comment on above: Performed By: #### C BC ####[id number] [place] [address] MCHC (RBC) [Mass/Vol] 32.5 g/dL Normal 32.0 - 36.0 [facility] Comment on above: Performed By: #### C BC ####[id number] [place] [address] MCV (RBC) [Entitic vol] 92 fL Normal 80 - 100 [facility] Comment on above: Performed By: #### C BC ####[id number] [place] [address] NUCLEATED RBC 0.0 /100 WBC Normal 0.0-0.0 [facility] Comment on above: Performed By: #### C BC ####[id number] [place] [address] Platelets (Bld) [#/Vol] 244 10*3/uL Normal 150 - 450 [facility] Comment on above: Performed By: #### C BC ####[id number] [place] [address] RBC 3.33 x10E12/L Low 4.00 - 5.20 [facility] Comment on above: Performed By: #### C BC ####[id number] [place] [address] WBC (Bld) [#/Vol] 8.6 10*3/uL Normal 4.4 - 11.3 [facility] Comment on above: Performed By: #### C BC ####[id number] [place] [address] CBC AND DIFFERENTIALon 09-23 % AUTOMATED IMMATURE GRAN 0.4 % Normal 0.0 - 0.9 [facility] Comment on above: Result Comment: Jaleesa ture Granulocyte Count (IG) includes promyelocytes, myelocytes and metamyelocytes but does not include bands. Percent differential counts (%) should be interpreted in the context of the absolute cell counts (cells/L). Performed By: #### C BC #### [facility] [address] [place] [address] Basophils (Bld) [#/Vol] 0.03 10*3/uL Normal 0.00 - 0.10 [facility] Comment on above: Performed By: #### C BC #### [facility] [address] [place] [address] Basophils/100 WBC (Bld) 0.4 % Normal 0.0 - 2.0 [facility] Comment on above: Performed By: #### C BC #### [facility] [address] [place] [address] Eosinophils (Bld) [#/Vol] 0.27 10*3/uL Normal 0.00 - 0.70 [facility] Comment on above: Performed By: #### C BC #### [facility] [address] [place] [address] Eosinophils/100 WBC (Bld) 3.6 % Normal 0.0 - 6.0 [facility] Comment on above: Performed By: #### C BC #### [facility] [address] [place] [address] Erythrocyte distribution width (RBC) [Ratio] 13.2 % Normal 11.5 - 14.5 [facility] Comment on above: Performed By: #### C BC #### [facility] [address] [place] [address] Hematocrit (Bld) [Volume fraction] 30.9 % Low 36.0 - 46.0 [facility] Comment on above: Performed By: #### C BC #### [facility] [address] [place] [address] Hemoglobin (Bld) [Mass/Vol] 10.4 g/dL Low 12.0 - 16.0 [facility] Comment on above: Performed By: #### C BC #### [facility] [address] [place] [address] Lymphocytes (Bld) [#/Vol] 2.41 10*3/uL Normal 1.20 - 4.80 [facility] Comment on above: Performed By: #### C BC #### [facility] [address] [place] [address] Lymphocytes/100 WBC (Bld) 31.9 % Normal 13.0 - 44.0 [facility] Comment on above: Performed By: #### C BC #### [facility] [address] [place] [address] MCHC (RBC) [Mass/Vol] 33.7 g/dL Normal 32.0 - 36.0 [facility] Comment on above: Performed By: #### C BC #### [facility] [address] [place] [address] MCV (RBC) [Entitic vol] 91 fL Normal 80 - 100 [facility] Comment on above: Performed By: #### C BC #### [facility] [address] [place] [address] Monocytes (Bld) [#/Vol] 0.49 10*3/uL Normal 0.10 - 1.00 [facility] Comment on above: Performed By: #### C BC #### [facility] [address] [place] [address] Monocytes/100 WBC (Bld) 6.5 % Normal 2.0 - 10.0 [facility] Comment on above: Performed By: #### C BC #### [facility] [address] [place] [address] Neutrophils (Bld) [#/Vol] 4.32 10*3/uL Normal 1.20 - 7.70 [facility] Comment on above: Performed By: #### C BC #### [facility] [address] [place] [address] Neutrophils/100 WBC (Bld) 57.2 % Normal 40.0 - 80.0 [facility] Comment on above: Performed By: #### C BC #### [facility] [address] [place] [address] NUCLEATED RBC 0.0 /100 WBC Normal 0.0-0.0 [facility] Comment on above: Performed By: #### C BC #### [facility] [address] [place] [address] Platelets (Bld) [#/Vol] 228 10*3/uL Normal 150 - 450 [facility] Comment on above: Performed By: #### C BC #### [facility] [address] [place] [address] RBC 3.39 x10E12/L Low 4.00 - 5.20 [facility] Comment on above: Performed By: #### C BC #### [facility] [address] [place] [address] WBC (Bld) [#/Vol] 7.6 10*3/uL Normal 4.4 - 11.3 [facility] Comment on above: Performed By: #### C BC #### [facility] [address] [place] [address] Complete Blood Count + Diffe rentialon 09-23-2021 [...] % See Below [facility] Work Phone: Comment on above: Reference [...] 10*3/uL 4.4 - 11.3 [facility]-Gas troen terology-[facility] [address] [facility] Work Phone: Complete Blood Count + Differential 0.03 {x10E9/L} See Below [facility] Work Phone: Comment on above: Reference Range: 0.0 0 - 0.10 Complete Blood Count + Differential 0.27 {x10E9/L} See Below [facility] Work Phone: Comment on above: Reference Range: 0.0 0 - 0.70 Complete Blood Count + Differential 0.49 {x10E9/L} See Below [facility] Work Phone: Comment on above: Reference Range: 0.1 0 - 1.00 Complete Blood Count + Differential 2.41 {x10E9/L} See Below [facility] [address] [facility] Work Phone: Comment on above: Reference Range: 1.2 0 - 4.80 Complete Blood Count + Differential 4.32 {x10E9/L} See Below [facility] Work Phone: Comment on above: Reference Range: 1.2 0 - 7.70 Complete Blood Count + Differential 3.6 % 0.0 - 6.0 [facility] Work Phone: Complete Blood Count + Differential 0.4 % 0.0 - 0.9 [facility] [address] [facility] Work Phone: Comment on above: Immature [...] threshold See Below [facility]astroen terology-[facility] [place] [facility] Work Phone: Comment on above: Reference Range: 12. 0 - 16.0 MCHC (RBC) [Mass/Vol] 32.5 g/dL See Below [facility] I Work Phone: Comment on above: Reference Range: 32. 0 - 36.0 MCV (RBC) [Entitic vol] 92 fL 80 - 100 M G-Gastroen carlos alberto-[facility] 6 I Work Phone: Platelets (Bld) [#/Vol] 244 10*3/uL 150 - 450 [facility]-Gastroen carlos alberto-[facility] [place] 6 I Work Phone: RBC (Bld) [#/Vol] 3.33 {x10E12/L} below low threshold See Below [facility]-Gastroen terology-[facility] [place] 6 I Work Phone: Comment on above: Reference Range: 4.0 0 - 5.20 WBC (Bld) [#/Vol] 8.6 10*3/uL 4.4 - 11.3 MG-Gas troen terology-[facility] 6 I Work Phone: MAGNESIUMon 09-23-2021 Magnesium [Mass/Vol] 1.68 mg/dL Normal 1.60 - 2.40 [facility] Comment on above: Performed By: #### C BC #### [facility] [address] [place] [address] Magnesium, Serumon Magnesium [Mass/Vol] 1.68 mg/dL See [...] (Advanced Practice Nurse) done by Ambrocio Izaguirre ([facility]) Discharge - Partial Reconciliation: 23-Sep-2021 13:21 by: Ambrocio Izaguirre ([facility]) Discharge - Partial Reconciliation: 24-Sep-2021 10:12 by: Ambrocio Izaguirre ([facility]) Discharge - Partial Reconciliation: 30-Sep-2021 14:12 by: Concetta Shi ([facility]) Discharge - Partial Reconciliation: 30-Sep-2021 14:14 by: Concetta Shi ([facility]) Discharge - Reconciliation: 30-Sep-2021 14:24 by: Concetta Shi ([facility]) Discharge - Reset to Incomplete: 02-Oct-2021 15:36 by: Ambrocio Izaguirre ([facility]) Discharge - Reconciliation: 02-Oct-2021 15:40 by: Ambrocio Izaguirre ([facility]) Discharge - Reset to Incomplete: 02-Oct-2021 15:57 by: Ambrocio Izaguirre ([facility]) Discharge - Reconciliation: 02-Oct-2021 15:58 by: Ambrocio Izaguirre ([facility]) Home Medications [facility] DISCHARGE DateReconciliation Comment/ Additional [...] not required (more content not included)... Normal [facility] PATH REVIEW-IMMUNOHEMATOLOGY on 09-23-2021 PATH REV-IMMUNOHEMOTOL LETA Normal [facility] Comment on above: Result Comment: [...] PATIENT. Performed By: #### A FPA3 #### [facility] [address] [place] [address] RENAL FUNCTION PANELon 09-23 Albumin [Mass/Vol] 2.7 g/dL Low 3.4 - 5.0 [facility] Comment on above: Performed By: #### V FPA3 #### [facility] [address] [place] [address] Anion gap [Moles/Vol] 10 mmol/L Normal 10 - 20 [facility] Comment on above: Performed By: #### V FPA3 #### [facility] [address] [place] [address] Calcium [Mass/Vol] 7.9 mg/dL Low 8.6 - 10.6 [facility] Comment on above: Performed By: #### V FPA3 #### [facility] [address] [place] [address] Chloride [Moles/Vol] 108 mmol/L High 98 - 107 [facility] Comment on above: Performed By: #### V FPA3 #### [facility] [address] [place] [address] Creatinine [Mass/Vol] 0.39 mg/dL Low 0.50 - 1.05 [facility] Comment on above: Performed By: #### V FPA3 #### [facility] [address] [place] [address] eGFR FEMALE >90 Normal >90 [facility] Comment on above: Result Comment: CALC ULATIONS OF ESTIMATED GFR ARE PERFORMED USING THE 2020 CKD-EPI STUDY REFIT EQUATION WITHOUT THE RACE VARIABLE FOR THE IDMS-TRACEABLE CREATININE METHODS. https://jasn.asnjournals.org/content/early/ASN.368 9569571 Performed By: #### V FPA3 #### [facility] [address] [place] [address] Glucose [Mass/Vol] 87 mg/dL Normal 74 - 99 [facility] Comment on above: Performed By: #### V FPA3 #### [facility] [address] [place] [address] HCO3 (Bld) [Moles/Vol] 29 mmol/L Normal 21 - 32 [facility] Comment on above: Performed By: #### V FPA3 #### [facility] [address] [place] [address] Phosphate [Mass/Vol] 2.7 mg/dL Normal 2.5 - 4.9 [facility] Comment on above: Result Comment: The performance characteristics of phosphorus testing in heparinized plasma have been validated by the individual laboratory site where testing is performed. Testing on heparinized plasma is not approved by the FDA; however, such approval is not necessary. Performed By: #### V FPA3 #### [facility] [address] [place] [address] Potassium [Moles/Vol] 3.6 mmol/L Normal 3.5 - 5.3 [facility] Comment on above: Performed By: #### V FPA3 #### [facility] [address] [place] [address] Sodium [Moles/Vol] 143 mmol/L Normal 136 - 145 [facility] Comment on above: Performed By: #### V FPA3 #### [facility] [address] [place] [address] Urea nitrogen [Mass/Vol] 9 mg/dL Normal 6 - 23 [facility] Comment on above: Performed By: #### V FPA3 #### [facility] [address] [place] [address] Rehab Note-individual therap yon 09-23-2021 Rehab Note-individual therapy Rehab: Info: Disciplinephysical therapist Mode of Treatmentphysical therapy; individual therapy Time IN14:50 Time OUT15:29 Total Treatment [id number] Patient in ... at end of sessionbed, [...] sit to supine; rolling right Roll Left [place] (Bed Mobility)verbal cues; maximum assist (25% patient effort); 1 person assist Roll Right [place] (Bed Mobility)maximum assist (25% patient effort); verbal cues; 1 person assist Scoot/Bridge [place] (Bed Mobility)verbal cues; maximum assist (25% patient effort); 2 person assist; boost HOB Eewcqg-nl-Ply [place] (Bed Mobility)verbal cues; maximum assist (25% patient effort); 1 person assist Hqi-up-Xmuwrh [place] (Bed Mobility)set up; verbal cues; maximum assist (25% patient effort); 1 person assist Assistive Device (Bed Mobility)bed rails; draw sheet Transfer Assessment/Interventionss it to stand transfer; stand to sit transfer Sit-Stand Wasatch (Transfers)2 person assist; moderate assist (50% patient effort) Sit-Stand Assistive Device (Transfers)B arm-in-arm assist Stand-Sit Wasatch (Transfers)2 person assist; moderate assist (50% patient [...] modification to decrease pain Electronic Signatures: Boone Brosusard (PT) (Signed 23-Sep-2021 15:50) Authored: Info, Vision/Cognition, Mobility/Tone, Motor, Sensory, Health, TherEx, Outcomes Tools, Education Last Updated: 23-Sep-2021 15:50 by Boone Broussard (PT) Normal [facility] Renal Function Panelon 09-23 Albumin [...] Phone: Renal Function Panel >90 >90 [facility] Work Phone: Comment on above: CALCULATIONS OF IVY MATED GFR ARE PERFORMED USING THE 2020 CKD-EPI STUDY REFIT EQUATION WITHOUT THE RACE VARIABLE FOR THE IDMS-TRACEABLE CREATININE METHODS.https://jasn.asnjournals.org/content/ /ASN.8859144054 ANTIBODY IDENT.on 09-22-2021 ANTIBODY IDENT. Anti-E Normal [facility] Comment on above: Performed By: #### V FPA3 #### [facility] [address] [place] [address] CBCon 09-22-2021 Erythrocyte distribution width (RBC) [Ratio] 13.2 % Normal 11.5 - 14.5 [facility] Comment on above: Performed By: #### V FPA3 #### [facility] [address] [place] [address] Hematocrit (Bld) [Volume fraction] 30.6 % Low 36.0 - 46.0 [facility] Comment on above: Performed By: #### V FPA3 #### [facility] [address] [place] [address] Hemoglobin (Bld) [Mass/Vol] 10.2 g/dL Low 12.0 - 16.0 [facility] Comment on above: Performed By: #### V FPA3 #### [facility] [address] [place] [address] MCHC (RBC) [Mass/Vol] 33.3 g/dL Normal 32.0 - 36.0 [facility] Comment on above: Performed By: #### V FPA3 #### [facility] [address] [place] [address] MCV (RBC) [Entitic vol] 91 fL Normal 80 - 100 [facility] Comment on above: Performed By: #### V FPA3 #### [facility] [address] [place] [address] NUCLEATED RBC 0.0 /100 WBC Normal 0.0-0.0 [facility] Comment on above: Performed By: #### V FPA3 #### [facility] [address] [place] [address] Platelets (Bld) [#/Vol] 215 10*3/uL Normal 150 - 450 [facility] Comment on above: Performed By: #### V FPA3 #### [facility] [address] [place] [address] RBC 3.37 x10E12/L Low 4.00 - 5.20 [facility] Comment on above: Performed By: #### V FPA3 #### [facility] [address] [place] [address] WBC (Bld) [#/Vol] 9.6 10*3/uL Normal 4.4 - 11.3 [facility] Comment on above: Performed By: #### V FPA3 #### [facility] [address] [place] [address] CBC AND DIFFERENTIALon 09-22 % AUTOMATED IMMATURE GRAN 0.4 % Normal 0.0 - 0.9 [facility] Comment on above: Result Comment: Jaleesa ture Granulocyte Count (IG) includes promyelocytes, myelocytes and metamyelocytes but does not include bands. Percent differential counts (%) should be interpreted in the context of the absolute cell counts (cells/L). Performed By: #### C BCDF ####[id number] [place] [address] Basophils (Bld) [#/Vol] 0.02 10*3/uL Normal 0.00 - 0.10 [facility] Comment on above: Performed By: #### C BCDF ####[id number] [place] [address] Basophils/100 WBC (Bld) 0.2 % Normal 0.0 - 2.0 [facility] Comment on above: Performed By: #### C BCDF ####[id number] [place] [address] Eosinophils (Bld) [#/Vol] 0.04 10*3/uL Normal 0.00 - 0.70 [facility] Comment on above: Performed By: #### C BCDF ####[id number] [place] [address] Eosinophils/100 WBC (Bld) 0.4 % Normal 0.0 - 6.0 [facility] Comment on above: Performed By: #### C BCDF ####[id number] [place] [address] Erythrocyte distribution width (RBC) [Ratio] 13.2 % Normal 11.5 - 14.5 [facility] Comment on above: Performed By: #### C BCDF ####[id number] [place] [address] Hematocrit (Bld) [Volume fraction] 30.6 % Low 36.0 - 46.0 [facility] Comment on above: Performed By: #### C BCDF ####[id number] [place] [address] Hemoglobin (Bld) [Mass/Vol] 10.3 g/dL Low 12.0 - 16.0 [facility] Comment on above: Performed By: #### C BCDF ####[id number] [place] [address] Lymphocytes (Bld) [#/Vol] 2.19 10*3/uL Normal 1.20 - 4.80 [facility] Comment on above: Performed By: #### C BCDF ####[id number] [place] [address] Lymphocytes/100 WBC (Bld) 19.9 % Normal 13.0 - 44.0 [facility] Comment on above: Performed By: #### C BCDF ####[id number] [place] [address] MCHC (RBC) [Mass/Vol] 33.7 g/dL Normal 32.0 - 36.0 [facility] Comment on above: Performed By: #### C BCDF ####[id number] [place] [address] MCV (RBC) [Entitic vol] 90 fL Normal 80 - 100 [facility] Comment on above: Performed By: #### C BCDF ####[id number] [place] [address] Monocytes (Bld) [#/Vol] 0.71 10*3/uL Normal 0.10 - 1.00 [facility] Comment on above: Performed By: #### C BCDF ####[id number] [place] [address] Monocytes/100 WBC (Bld) 6.5 % Normal 2.0 - 10.0 [facility] Comment on above: Performed By: #### C BCDF ####[id number] [place] [address] Neutrophils (Bld) [#/Vol] 7.98 10*3/uL High 1.20 - 7.70 [facility] Comment on above: Performed By: #### C BCDF ####[id number] [place] [address] Neutrophils/100 WBC (Bld) 72.6 % Normal 40.0 - 80.0 [facility] Comment on above: Performed By: #### C BCDF ####[id number] [place] [address] NUCLEATED RBC 0.0 /100 WBC Normal 0.0-0.0 [facility] Comment on above: Performed By: #### C BCDF ####[id number] [place] [address] Platelets (Bld) [#/Vol] 242 10*3/uL Normal 150 - 450 [facility] Comment on above: Performed By: #### C BCDF ####[id number] [place] [address] RBC 3.39 x10E12/L Low 4.00 - 5.20 [facility] Comment on above: Performed By: #### C BCDF ####[id number] [place] [address] WBC (Bld) [#/Vol] 11.0 10*3/uL Normal 4.4 - 11.3 [facility] Comment on above: Performed By: #### C BCDF ####[id number] [place] [address] Complete Blood Count + Diffe vidya 09-22-2021 [...] with at bedside. She is currently on DISHWASHING MACHINE OPERATOR for pain, and reports being tired [...] this time. Objective: Objective Information: T PRBPSpO2 [id number]/5792% Date/Time09/22 0:001/18 8:001/18 8:001/18 8:001/18 8:00 Range(36.3C [...] Fair. Medications: Continuous Medications ------- 1. HYDROmorphone DISHWASHING MACHINE OPERATOR 25 mg/ NaCL 0.9% 50 mL: 2.6 mg/hr IV DISHWASHING MACHINE OPERATOR 2. Sodium Chloride 0.9% Infusion: 1000 [...] from Suboxone (more content not included)... Normal [facility] Daily Progress Note-Nuha stearns 09-22-2021 Daily Progress Note-Neurosurgery Service: Neurosurgery Subjective Data: MORALES LEE is a 46 year old Female who is Hospital Day # 8 and POD #1 for posterior L4-L5 decompression;posterior L4-L5 arthrodesis. Objective Data: Objective Information: T PRBPSpO2 [id number]/5895% Date/Time09/22 0:00118 0:00118 0:00118 0:00118 0:00 Range(36.2C - 36.8C ) (82 - 109 ) (12 - 20 ) (85 - 132 )/ (49 - 89 ) (94% - 100% ) As of 21-Sep-2021 17:00:00, patient is on 4 L/min of oxygen via nasal cannula. Pain reported at 09/21 16:33: 5 = Moderate ---- Intake and Output ----- Mn/Dy/Year TimeIntakeOutputNet Sep 20, 2021 10:00 [id number] Sep 20, 2021 6:00 [id number] The Intake and Output Totals for the last 24 hours are: IntakeOutputNet [id number] Physical Exam by System: Neurological: A&Ox3 RUE D5, B5, T5, HG5, IO5 LUE D4+, B4+, T4+, HG4+, IO5 RLE HF 3, KE4-, PF1, DF0 LLE HF 4-, KE4-, PF1, DF0 Recent Lab Results: Results: CBC: 09/21/2021 09:54 \\ Hgb / \\ 11.4 L / WBC Plt 14.6 H 269 / Hct \\ / 34.5 L \\ RBC: 3.81 L MCV: 91 Assessment and [...] Chronic pain recs- intra-op ketamine, meloxicam post-op, 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, Suboxone as OP COWS psych recs alvares for retention SCD's, [facility] Attestation: Note Completion: I [...] the note. I personally evaluated the patient [id number] Electronic Signatures: Fidel Maciel (Resident)) (Signed 22-Sep-2021 00:35) Authored: Service, Subjective Data, Objective Data, Assessment and Plan, Note Completion Lex Frederick) (Signed 22-Sep-2021 10:31) Authored: Note Completion Co-Signer: Service, Subjective Data, Objective Data, Assessment and Plan, Note Completion Last Updated: 22-Sep-2021 10:31 by Lex Frederick) [facility] Discharge [id number] Discharge Profile2 Discharge Orders: Anticipated Discharge Date: Anticipated Discharge [id number] Problem List: Additional Dx: Spinal stenosis of [...] Please call your Neurosurgeon's office (Dr. Frederick [phone]) if you have any questions. -If you [...] taking Acetamin (more content not included)... Normal [facility] LACTATEon 09-22-2021 Lactate [Moles/Vol] 0.8 mmol/L Normal 0.4 - 2.0 [facility] Comment on above: Result Comment: Trina puncture immediately after or during the administration of Metamizole may lead to falsely low results. Testing should be performed immediately prior to Metamizole dosing. Performed By: #### C BC #### [facility] [address] [place] [address] Laboratory - Hematology and Cell countson 09-22-2021 [...] threshold See Below [facility] [facility] Work Phone: Comment on above: Reference Range: 12. 0 - 16.0 MCHC (RBC) [Mass/Vol] 33.3 g/dL See Below [facility]- Gastroen terology-[facility] 6 I Work Phone: Comment on above: Reference Range: 32. 0 - 36.0 MCV (RBC) [Entitic vol] 91 fL 80 - 100 M G-Gastroen terology-[facility] [address] [facility] Work Phone: Platelets (Bld) [#/Vol] 215 10*3/uL 150 - 450 [facility]astroen terology-[facility] [address] [facility] Work Phone: RBC (Bld) [#/Vol] 3.37 {x10E12/L} below low threshold See Below [facility]astroen [facility]ology[facility] [address] [facility] Work Phone: Comment on above: Reference Range: 4.0 0 - 5.20 WBC (Bld) [#/Vol] 9.6 10*3/uL 4.4 - 11.3 [facility]-Gas troen terology-[facility] [address] [facility] Work Phone: Lactate, Levelon 09-22-2021 Lactate [Moles/Vol] 0.8 mmol/L 0.4 - 2.0 MG-Ga stroen terology-[facility] [address] [facility] Work Phone: Comment on above: Venipuncture [...] safety. Time IN10:50 Time OUT11:40 Total Treatment [id number] Patient in ... at end of sessionbed, 3 railings up; alarm on Communicated with ... at end of sessionbedside nurse Patient Effortgood Symptoms Noted During/After Treatmentfatigue; increased pain Patient Profile Reviewedyes Onset of Illness/Injury or Date of [id number] Reason for Referral-09/18/21: s/p exploration of spinal [...] EOB sitting. Pertinent History of Current Functional [id number] y/o with hx of HTN, C6-7 ACDF, [...] TubesIV; triple lumen; telemetry; urethral catheter indwelling; DISHWASHING MACHINE OPERATOR pump, DAVOL drain, wound vac O2 Deliverynasal cannula; 4L Pre Treatment Patient Positionsupine Pre Treatment Blood Pressure Evixkfrs69 mmHg Pre Treatment Diastolic (mm Hg)46 mmHg Pre Treatment Heart Rate (beats/min)67 Pre Treatment Respiratory Rate (breaths/min)19 Pre Treatment SpO2 (%)96 % Pre Treatment Oxygen Deliverysupplemental O2 Pre Treatment CommentsMAP 56 During Treatment Patient Positionsitting During Treatment Blood Pressure Dbkopuqp25 mmHg During Treatment Diastolic (mm Hg)77 mmHg [...] to sit; sit to supine Roll Left [place] (Bed Mobility)set up; verbal cues; 2 person assist; Pt required assist to bend BLE at (more content not included)... Normal [facility] PATH REVIEW-IMMUNOHEMATOLOGY on 09-22-2021 PATH REV-IMMUNOHEMOTOL ZURDO Normal [facility] Comment on above: Result Comment: [...] THIS PATIENT. Performed By: #### C #### [facility] [address] [place] [address] PT Evaluation [id number] t - co-treatment with OT to [facility] 09-22-2021 PT Evaluation [id number] - co-treatment with OT to [facility] Rehab: Info: Mode of Treatmentphysical therapy; co-treatment; co-treatment with OT to maximize safety, mobility and ADL participation Time IN10:50 Time OUT11:40 Total Treatment [id number] Patient in ... at end of sessionbed, 3 railings up; alarm on Communicated with ... at end of sessionbedside nurse Patient Effortgood Symptoms Noted During/After Treatmentfatigue; increased pain Patient Profile Reviewedyes Onset of Illness/Injury or Date of [id number] Reason for Referral-09/18/21: s/p exploration of spinal [...] TubesIV; triple lumen; telemetry; urethral catheter indwelling; DISHWASHING MACHINE OPERATOR pump, DAVOL drain, wound vac O2 Deliverynasal cannula; 4L Pre Treatment Patient Positionsupine Pre Treatment Blood Pressure Nanzlcaf50 mmHg Pre Treatment Diastolic (mm Hg)46 mmHg Pre Treatment Heart Rate (beats/min)67 Pre Treatment SpO2 (%)96 % Pre Treatment Oxygen Deliverysupplemental O2 During Treatment Patient Positionsitting During Treatment Blood Pressure Cndmzjxt04 mmHg During Treatment Diastolic (mm Hg)77 mmHg [...] sit to supine; rolling right Roll Left [place] (Bed Mobility)verbal cues; 2 person assist; Pt required assist to bend BLE at knees and to initiate turn at shoulders and hips, verbal cues for grasp on bed rail, technique, direction follow, and encouragement.; maximum assist (25% patient effort) Roll Right [place] (Bed Mobility)2 person assist; maximum assist (25% patient effort); verbal cues Scoot/Bridge [place] (Bed Mobility)verbal cues; maximum assist (25% patient effort); 2 person assist; boost HOB Jqagby-lo-Mse [place] (Bed Mobility)verbal cues; maximum assist (25% patient effort); 1 person assist Msj-co-Orenfa [place] (Bed Mobility)set up; verbal cues; maximum assist (25% patient effort); 1 person assist Assistive Device (Bed Mobility)bed rails; draw sheet Impairments Impacting Function (Mobility)balance; cognition; endurance/activity tolerance; pain; strength; postural/trunk control; motor control Motor: Sitting, Static (Balance)SBA Sitting, Dynamic (Balance)CGA Ynv-iy-Qtppy (Balance)MADELIN this visit. Pt hypotensive Sensory: Pre-Treatment Pain Rating7/10 Post-Treatment Pain Rating7/10 Comment, Pre/Post Treatment PainPt reported pain throughout buttocks and back, utilized DISHWASHING MACHINE OPERATOR pump as needed. Pain LimitationFunctional mobility limited due pain; ADLs/IADLs limited due to pain; Participation limited by pain; RN or team was notified of limitations due to p (more content not included)... Normal [facility] RENAL FUNCTION PANELon 09-22 Albumin [Mass/Vol] 2.7 g/dL Low 3.4 - 5.0 [facility] Comment on above: Performed By: #### C BC #### [facility] [address] [place] [address] Anion gap [Moles/Vol] 10 mmol/L Normal 10 - 20 [facility] Comment on above: Performed By: #### C BC #### [place] [address] [place] [address] Calcium [Mass/Vol] 7.8 mg/dL Low 8.6 - 10.6 [facility] Comment on above: Performed By: #### C BC #### [facility] [address] [place] [address] Chloride [Moles/Vol] 105 mmol/L Normal 98 - 107 [facility] Comment on above: Performed By: #### C BC #### [facility] [address] [place] [address] Creatinine [Mass/Vol] 0.49 mg/dL Low 0.50 - 1.05 [facility] Comment on above: Performed By: #### C BC #### [place] [address] [place] [address] eGFR FEMALE >90 Normal >90 [facility] Comment on above: Result Comment: CALC ULATIONS OF ESTIMATED GFR ARE PERFORMED USING THE 2020 CKD-EPI STUDY REFIT EQUATION WITHOUT THE RACE VARIABLE FOR THE IDMS-TRACEABLE CREATININE METHODS. https://jasn.asnjournals.org/content/early//ASN.744 8621331 Performed By: #### C BC #### [facility] [address] [place] [address] Glucose [Mass/Vol] 93 mg/dL Normal 74 - 99 [facility] Comment on above: Performed By: #### C BC #### [facility] [address] [place] [address] HCO3 (Bld) [Moles/Vol] 29 mmol/L Normal 21 - 32 [facility] Comment on above: Performed By: #### C BC #### [facility] [address] [place] [address] Phosphate [Mass/Vol] 2.4 mg/dL Low 2.5 - 4.9 [facility] Comment on above: Result Comment: The performance characteristics of phosphorus testing in heparinized plasma have been validated by the individual laboratory site where testing is performed. Testing on heparinized plasma is not approved by the FDA; however, such approval is not necessary. Performed By: #### C BC #### [facility] [address] [place] [address] Potassium [Moles/Vol] 4.3 mmol/L Normal 3.5 - 5.3 [facility] Comment on above: Performed By: #### C BC #### [facility] [address] [place] [address] Sodium [Moles/Vol] 140 mmol/L Normal 136 - 145 [facility] Comment on above: Performed By: #### C BC #### [facility] [address] [place] [address] Urea nitrogen [Mass/Vol] 9 mg/dL Normal 6 - 23 [facility] Comment on above: Performed By: #### C BC #### [facility] [address] [place] [address] Renal Function Panelon 09-22 Albumin BCP dye [...] - 5.3 [facility]- [facility]astro[facility] [facility] Work Phone: Sodium [Moles/Vol] 140 mmol/L 136 - 145 [facility]-Gas troen [facility]ology[facility] [facility] Work Phone: Urea nitrogen [Mass/Vol] 9 mg/dL 6 - 23 [facility] [facility] Work Phone: Renal Function Panel >90 >90 [facility]-G astroen terology[facility] [facility] Work Phone: Comment on above: CALCULATIONS OF IVY MATED GFR ARE PERFORMED USING THE 2020 CKD-EPI STUDY REFIT EQUATION WITHOUT THE RACE VARIABLE FOR THE IDMS-TRACEABLE CREATININE METHODS.https://jasn.asnjournals.org/content/ /ASN.8959010116 UA MICROSCOPICon 09-22-2021 RBC 6 /HPF Abnormal 0-5 [facility] Comment on above: Performed By: #### C BC #### [facility] [address] [place] [address] SQUAMOUS EPITH. CELLS 1 /HPF Normal [facility] Comment on above: Performed By: #### C BC #### [facility] [address] [place] [address] WBC 8 /HPF Abnormal 0-5 [facility] Comment on above: Performed By: #### C BC #### [facility] [address] [place] [address] URINALYSIS WITH CULTURE IF I NDICATEDon 09-22-2021 Appearance (U) CLEAR Normal CLEAR [facility] Comment on above: Performed By: #### U ARFX ####[id number] [place] [address] Bilirubin Ql (U) Negative Normal NEGATIVE [facility] Comment on above: Performed By: #### U ARFX ####[id number] [place] [address] Color (U) MIRANDA Normal STRAW,YELL OW [facility] Comment on above: Performed By: #### U ARFX ####[id number] [place] [address] Glucose Ql (U) Negative Normal NEGATIVE [facility] Comment on above: Performed By: #### U ARFX ####[id number] [place] [address] Hemoglobin Ql (U) Negative Normal NEGATIVE [facility] Comment on above: Performed By: #### U ARFX ####[id number] [place] [address] Ketones Ql (U) 20 (1+) Abnormal NEGATIVE [facility] Comment on above: Performed By: #### U ARFX ####[id number] [place] [address] Leukocyte esterase Test strip Ql (U) Negative Normal NEGATIVE [facility] Comment on above: Performed By: #### U ARFX ####[id number] [place] [address] Nitrite Ql (U) Negative Normal NEGATIVE [facility] Comment on above: Performed By: #### U ARFX ####[id number] [place] [address] pH (U) 5.0 [pH] Normal 5.0 - 8.0 [facility] Comment on above: Performed By: #### U ARFX ####[id number] [place] [address] Protein Ql (U) 30 (1+) Abnormal NEGATIVE [facility] Comment on above: Performed By: #### U ARFX ####[id number] [place] [address] Specific gravity (U) [Rel density] 1.040 High 1.005 - 1.035 [facility] Comment on above: Performed By: #### U ARFX ####[id number] [place] [address] Urobilinogen (U) [Mass/Vol] 2.0 mg/dL High 0.0 - 1.9 [facility] Comment on above: Result Comment: [...] positive urobilinogen. Performed By: #### U ARFX ####[id number] [place] [address] Lab Specimen Source Normal [facility] Comment on above: Performed By: #### U ARFX ####[id number] [place] [address] Performed By: #### C BC #### [facility] [address] [place] [address] Color (U) MIRANDA See Below [facility]-Gastroen terology-[facility] [...] CULTURE,BACTERIALon URINE CULTURE,BACTERIAL PATIENT: Fay LEE LOCATION: [place] [address] BILL#: [id number] : 71 AGE: SEX: F ORDERED BY: AMBROCIO IZAGUIRRE SOURCE: URINE COLLECTED: 09/22/21 12:59 ANTIBIOTICS AT [facility].: RECEIVED : 09/22/21 14:59 SITE: R E S U L T S URINE CULTURE,BACTERIAL FINAL 09/23/21 09:04 NO SIGNIFICANT GROWTH. Normal [facility] Comment on above: Performed By: #### C BC #### [facility] [address] [place] [address] Urinalysis, Microscopicon Urinalysis, Microscopic 1 {/HPF} M [facility] [facility] Work Phone: Urinalysis, Microscopic 6 {/HPF} Abnormal 0-5 M [facility] [facility] I Work Phone: Urinalysis, Microscopic 8 {/HPF} Abnormal 0-5 M [facility] [facility] I Work Phone: Comment on above: SOURCE: CBCon 09-21-2021 Erythrocyte distribution width (RBC) [Ratio] 13.1 % Normal 11.5 - 14.5 [facility] Comment on above: Performed By: #### R ENAL #### [facility] [address] [place] [address] Hematocrit (Bld) [Volume fraction] 34.5 % Low 36.0 - 46.0 [facility] Comment on above: Performed By: #### R ENAL #### [facility] [address] [place] [address] Hemoglobin (Bld) [Mass/Vol] 11.4 g/dL Low 12.0 - 16.0 [facility] Comment on above: Performed By: #### R ENAL #### [facility] [address] [place] [address] MCHC (RBC) [Mass/Vol] 33.0 g/dL Normal 32.0 - 36.0 [facility] Comment on above: Performed By: #### R ENAL #### [facility] [address] [place] [address] MCV (RBC) [Entitic vol] 91 fL Normal 80 - 100 [facility] Comment on above: Performed By: #### R ENAL #### [facility] [address] [place] [address] NUCLEATED RBC 0.0 /100 WBC Normal 0.0-0.0 [facility] Comment on above: Performed By: #### R ENAL #### [facility] [address] [place] [address] Platelets (Bld) [#/Vol] 269 10*3/uL Normal 150 - 450 [facility] Comment on above: Performed By: #### R ENAL #### [facility] [address] [place] [address] RBC 3.81 x10E12/L Low 4.00 - 5.20 [facility] Comment on above: Performed By: #### R ENAL #### [facility] [address] [place] [address] WBC (Bld) [#/Vol] 14.6 10*3/uL High 4.4 - 11.3 [facility] Comment on above: Performed By: #### R ENAL #### [facility] [address] [place] [address] Erythrocyte distribution width (RBC) [Ratio] 13.2 % Normal 11.5 - 14.5 [facility] Comment on above: Performed By: #### R ENAL #### [facility] [address] [place] [address] Hematocrit (Bld) [Volume fraction] 35.8 % Low 36.0 - 46.0 [facility] Comment on above: Performed By: #### R ENAL #### [facility] [address] [place] [address] Hemoglobin (Bld) [Mass/Vol] 11.9 g/dL Low 12.0 - 16.0 [facility] Comment on above: Performed By: #### R ENAL #### [facility] [address] [place] [address] MCHC (RBC) [Mass/Vol] 33.2 g/dL Normal 32.0 - 36.0 [facility] Comment on above: Performed By: #### R ENAL #### [facility] [address] [place] [address] MCV (RBC) [Entitic vol] 91 fL Normal 80 - 100 [facility] Comment on above: Performed By: #### R ENAL #### [facility] [address] [place] [address] NUCLEATED RBC 0.0 /100 WBC Normal 0.0-0.0 [facility] Comment on above: Performed By: #### R ENAL #### [facility] [address] [place] [address] Platelets (Bld) [#/Vol] 215 10*3/uL Normal 150 - 450 [facility] Comment on above: Performed By: #### R ENAL #### [facility] [address] [place] [address] RBC 3.93 x10E12/L Low 4.00 - 5.20 [facility] Comment on above: Performed By: #### R ENAL #### [place] [address] [place] [address] WBC (Bld) [#/Vol] 14.8 10*3/uL High 4.4 - 11.3 [facility] Comment on above: Performed By: #### R ENAL #### [facility] [address] [place] [address] Daily Progress Note-Neurosjudy stearns 09-21-2021 Daily Progress Note-Neurosurgery Service: Neurosurgery Subjective Data: MORALES LEE is a 46 year old Female who is Hospital Day # 7 and POD #3 for 1. Exploration of spinal fusion;2. Reduction of L4/5 dislocation;2. L5-pelvis instrumented fusion with posterolateral arthrodesis;4. Extension of instrumentation with multiple kwame construct and side connectors. Objective Data: Objective Information: T PRBPSpO2 [id number]/8495% Date/Time09/20 15: 4: 4: 4: 4:00 Range(36.9C [...] ----- Mn/Dy/Year TimeIntakeOutputNet Sep 19, 2021 10:00 [id number] Sep 19, 2021 6:00 [id number] The Intake and Output Totals for the last 24 hours are: IntakeOutEC[facility] [id number] Physical Exam by System: Neurological: A&Ox3 RUE D5, B5, T5, HG5, IO5 LUE D4+, B4+, T4+, HG4+, IO5 RLE HF 3, KE4-, PF0, DF0 LLE HF 4-, KE4-, PF0, DF0 Recent Lab Results: Results: CBC: 09/21/2021 01:39 \\ Hgb / \\ 11.9 L / WBC Plt 14.8 H 215 / Hct \\ / 35.8 L \\ RBC: 3.93 L MCV: 91 Assessment and [...] Chronic pain recs- intra-op ketamine, meloxicam post-op, 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 Normal [facility] Laboratory - Blood bankon ABO [...] lumbar spine September 18, 2021 ACCESSION NUMBER(S): [id number]; [id number] ORDERING CLINICIAN: DEVANTE STARKS TECHNIQUE: Sagittal axial [...] Electronically signed by: NATALIA WALL DO Normal [facility] NR MRI T-SPINE WOon 09-21-19 NR MRI T-SPINE WO Patient Name: MORALES LEE STUDY: MRI T-SPINE WO; MRI L-SPINE WO; 09/20/2021 10:40 pm; 09/20/2021 10:42 pm INDICATION: postop foot weakness, Lie Flat: Yes, Pre Med: No . COMPARISON: MRI December 24, [address] of the lumbar spine September 18, 2021 ACCESSION NUMBER(S): [id number]; [id number] ORDERING CLINICIAN: DEVANTE STARKS TECHNIQUE: Sagittal axial [...] Electronically signed by: NATALIA WALL DO Normal [facility] No Panel Informationon 09-21 0.0 [...] Preop Checklist Preop Checklist: Preop Checklist: Arrival [id number] Arrival Time11:00 Procedure Typere-exploration of spine Temperature C36.2 degrees C Temperature F97.1 degrees F Heart Rate91 beats per minute Respiratory Rate18 breath per minute Blood Pressure Mqpxziik139 mm/Hg Blood Pressure Hthikwbij28 mm/Hg COVID 19 Results in Last 7 [...] 21-Sep-2021 11:17 by Linh Buchanan (RN) Normal [facility] REQUEST-LEUKOREDUCED RED ANJU LSon 09-21-2021 REQUEST-LEUKOREDUCED RED CELLS ORDER RECD Normal [facility] Comment on above: Performed By: #### A FPA3 #### [facility] [address] [place] [address] TYPE + SCREENon 09-21-2021 ABO TYPE O Normal [facility] Comment on above: Performed By: #### A FPA3 #### [facility] [address] [place] [address] RH TYPE Positive Normal [facility] Comment on above: Performed By: #### A FPA3 #### [facility] [address] [place] [address] ABO TYPE Canceled Normal [facility] Comment on above: Order Comment: VENECIA ESPINO, 09/21/2021 05:08TEST TYPE + SCREEN WAS CANCELLED, 09/21/2021 05:06 NO PHLEB ID ON TUBE. Result Comment: EULA ESPINO, 09/21/2021 05:08 Performed By: #### A FPA3 #### [facility] [address] [place] [address] RH TYPE Canceled Normal [facility] Comment on above: Order Comment: VENECIA ESPINO, 09/21/2021 05:08TEST TYPE + SCREEN WAS CANCELLED, 09/21/2021 05:06 NO PHLEB ID ON TUBE. Result Comment: CALL ED RN AFSANEH ESPINO, 09/21/2021 05:08 Performed By: #### A FPA3 #### [facility] [address] [place] [address] CBCon 09-20-2021 Erythrocyte distribution width (RBC) [Ratio] 13.2 % Normal 11.5 - 14.5 [facility] Comment on above: Performed By: #### C BC #### [facility] [address] [place] [address] Hematocrit (Bld) [Volume fraction] 30.8 % Low 36.0 - 46.0 [facility] Comment on above: Performed By: #### C BC #### [facility] [address] [place] [address] Hemoglobin (Bld) [Mass/Vol] 9.8 g/dL Low 12.0 - 16.0 [facility] Comment on above: Performed By: #### C BC #### [facility] [address] [place] [address] MCHC (RBC) [Mass/Vol] 31.8 g/dL Low 32.0 - 36.0 [facility] Comment on above: Performed By: #### C BC #### [facility] [address] [place] [address] MCV (RBC) [Entitic vol] 93 fL Normal 80 - 100 [facility] Comment on above: Performed By: #### C BC #### [facility] [address] [place] [address] NUCLEATED RBC 0.0 /100 WBC Normal 0.0-0.0 [facility] Comment on above: Performed By: #### C BC #### [facility] [address] [place] [address] Platelets (Bld) [#/Vol] 224 10*3/uL Normal 150 - 450 [facility] Comment on above: Performed By: #### C BC #### [facility] [address] [place] [address] RBC 3.32 x10E12/L Low 4.00 - 5.20 [facility] Comment on above: Performed By: #### C BC #### [facility] [address] [place] [address] WBC (Bld) [#/Vol] 12.1 10*3/uL High 4.4 - 11.3 [facility] Comment on above: Performed By: #### C BC #### [facility] [address] [place] [address] Daily Progress Note-Neurosjudy stearns 09-20-2021 Daily Progress Note-Neurosurgery Service: Neurosurgery Subjective Data: MORALES LEE is a 46 year old Female who is Hospital Day # 6 and POD #2 for 1. Exploration of spinal fusion;2. Reduction of L4/5 dislocation;2. L5-pelvis instrumented fusion with posterolateral arthrodesis;4. Extension of instrumentation with multiple kwame construct and side connectors. Objective Data: Objective Information: T PRBPSpO2 [id number]/5095% Date/Time09/19 16: 1: 16: 1:341 1:34 Range(36.7C - 36.7C ) (84 - 110 ) (18 - 18 ) (82 - 118 )/ (50 - 97 ) (94% - 97% ) As of 19-Sep-2021 08:00:00, patient is on 2 L/min of oxygen via nasal cannula. ---- Intake and Output ----- Mn/Dy/Year TimeIntakeOutEC[facility] Sep 18, 2021 10:00 [id number] The Intake and Output Totals for the last 24 hours are: IntakeOutputNet [id number] Physical Exam by System: Neurological: A&Ox3 RUE D5, B5, T5, HG5, IO5 LUE D4+, B4+, T4+, HG4+, IO5 RLE HF 4+, KE4+, PF5, DF5 (pain limited) LLE HF 4-, KE4-, PF4, DF5 Recent Lab Results: Results: CBC: 09/19/2021 06:59 \\ Hgb / \\ 12.7 / WBC Plt 21.5 H 401 / Hct \\ / 38.3 \\ RBC: 4.28 MCV: 89 Neutrophil %: 80.1 RFP: 09/19/2021 06:59 NA+ Cl- BUN / 139 100 9 / ------- Glucose -- 82 K+ HCO3- Creat \\ 4.5 26 0.60 \\ Calcium : 8.3 LAnion Gap : 18 Albumin : 3.4 Phos : 2.8 Coagulation: 09/19/2021 06:59 PT / 11.5 / -------< INR < 1.0 PTT\\ 29 \\ Assessment and Plan: Code Status: Code StatusFull [...] chronic pain recs- intra-op ketamine, meloxicam post-op, 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, 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 as [...] Updated: 21-Sep-2021 11:28 by Perez Carlisle) Normal [facility] Laboratory - Hematology and Cell [...] 20-Sep-2021 12:25 by Carole Carlos (OT) Normal [facility] PT Evaluation v2-attemptedon 09-20-2021 PT Evaluation v2-attempted Rehab: Info: Mode of Treatmentattempted Time IN12:00 Evaluation Not PerformedPer RN pt not appropriate for therapy, pt continues to have low BP and plan to receive blood, will hold and reattempt as appropriate Electronic Signatures: Kaykay Yoo (PT) (Signed 20-Sep-2021 12:42) Authored: Info Last Updated: 20-Sep-2021 12:42 by Kaykay Yoo (PT) Normal [facility] REQUEST-LEUKOREDUCED RED ANJU LSon 09-20-2021 REQUEST-LEUKOREDUCED RED CELLS ORDER RECD Normal [facility] Comment on above: Performed By: #### R ENAL #### [facility] [address] [place] [address] CBCon 09-19-2021 Erythrocyte distribution width (RBC) [Ratio] 12.4 % Normal 11.5 - 14.5 [facility] Comment on above: Performed By: #### R ENAL #### [facility] [address] [place] [address] Hematocrit (Bld) [Volume fraction] 38.3 % Normal 36.0 - 46.0 [facility] Comment on above: Performed By: #### R ENAL #### [facility] [address] [place] [address] Hemoglobin (Bld) [Mass/Vol] 13.4 g/dL Normal 12.0 - 16.0 [facility] Comment on above: Performed By: #### R ENAL #### [facility] [address] [place] [address] MCHC (RBC) [Mass/Vol] 35.0 g/dL Normal 32.0 - 36.0 [facility] Comment on above: Performed By: #### R ENAL #### [facility] [address] [place] [address] MCV (RBC) [Entitic vol] 85 fL Normal 80 - 100 [facility] Comment on above: Performed By: #### R ENAL #### [facility] [address] [place] [address] NUCLEATED RBC 0.0 /100 WBC Normal 0.0-0.0 [facility] Comment on above: Performed By: #### R ENAL #### [facility] [address] [place] [address] Platelets (Bld) [#/Vol] 326 10*3/uL Normal 150 - 450 [facility] Comment on above: Performed By: #### R ENAL #### [facility] [address] [place] [address] RBC 4.51 x10E12/L Normal 4.00 - 5.20 [facility] Comment on above: Performed By: #### R ENAL #### [facility] [address] [place] [address] WBC (Bld) [#/Vol] 20.5 10*3/uL High 4.4 - 11.3 [facility] Comment on above: Performed By: #### R ENAL #### [facility] [address] [place] [address] CBC AND DIFFERENTIALon 09-19 % AUTOMATED IMMATURE GRAN 0.6 % Normal 0.0 - 0.9 [facility] Comment on above: Result Comment: Jaleesa ture Granulocyte Count (IG) includes promyelocytes, myelocytes and metamyelocytes but does not include bands. Percent differential counts (%) should be interpreted in the context of the absolute cell counts (cells/L). Performed By: #### V FPA3 #### [facility] [address] [place] [address] Basophils (Bld) [#/Vol] 0.03 10*3/uL Normal 0.00 - 0.10 [facility] Comment on above: Performed By: #### V FPA3 #### [facility] [address] [place] [address] Basophils/100 WBC (Bld) 0.1 % Normal 0.0 - 2.0 [facility] Comment on above: Performed By: #### V FPA3 #### [facility] [address] [place] [address] Eosinophils (Bld) [#/Vol] 0.01 10*3/uL Normal 0.00 - 0.70 [facility] Comment on above: Performed By: #### V FPA3 #### [facility] [address] [place] [address] Eosinophils/100 WBC (Bld) 0.0 % Normal 0.0 - 6.0 [facility] Comment on above: Performed By: #### V FPA3 #### [facility] [address] [place] [address] Erythrocyte distribution width (RBC) [Ratio] 12.9 % Normal 11.5 - 14.5 [facility] Comment on above: Performed By: #### V FPA3 #### [facility] [address] [place] [address] Hematocrit (Bld) [Volume fraction] 38.3 % Normal 36.0 - 46.0 [facility] Comment on above: Performed By: #### V FPA3 #### [facility] [address] [place] [address] Hemoglobin (Bld) [Mass/Vol] 12.7 g/dL Normal 12.0 - 16.0 [facility] Comment on above: Performed By: #### V FPA3 #### [facility] [address] [place] [address] Lymphocytes (Bld) [#/Vol] 2.89 10*3/uL Normal 1.20 - 4.80 [facility] Comment on above: Performed By: #### V FPA3 #### [facility] [address] [place] [address] Lymphocytes/100 WBC (Bld) 13.5 % Normal 13.0 - 44.0 [facility] Comment on above: Performed By: #### V FPA3 #### [facility] [address] [place] [address] MCHC (RBC) [Mass/Vol] 33.2 g/dL Normal 32.0 - 36.0 [facility] Comment on above: Performed By: #### V FPA3 #### [facility] [address] [place] [address] MCV (RBC) [Entitic vol] 89 fL Normal 80 - 100 [facility] Comment on above: Performed By: #### V FPA3 #### [facility] [address] [place] [address] Monocytes (Bld) [#/Vol] 1.23 10*3/uL High 0.10 - 1.00 [facility] Comment on above: Performed By: #### V FPA3 #### [facility] [address] [place] [address] Monocytes/100 WBC (Bld) 5.7 % Normal 2.0 - 10.0 [facility] Comment on above: Performed By: #### V FPA3 #### [facility] [address] [place] [address] Neutrophils (Bld) [#/Vol] 17.16 10*3/uL High 1.20 - 7.70 [facility] Comment on above: Performed By: #### V FPA3 #### [facility] [address] [place] [address] Neutrophils/100 WBC (Bld) 80.1 % Normal 40.0 - 80.0 [facility] Comment on above: Performed By: #### V FPA3 #### [facility] [address] [place] [address] NUCLEATED RBC 0.0 /100 WBC Normal 0.0-0.0 [facility] Comment on above: Performed By: #### V FPA3 #### [facility] [address] [place] [address] Platelets (Bld) [#/Vol] 401 10*3/uL Normal 150 - 450 [facility] Comment on above: Performed By: #### V FPA3 #### [facility] [address] [place] [address] RBC 4.28 x10E12/L Normal 4.00 - 5.20 [facility] Comment on above: Performed By: #### V FPA3 #### [facility] [address] [place] [address] WBC (Bld) [#/Vol] 21.5 10*3/uL High 4.4 - 11.3 [facility] Comment on above: Performed By: #### V FPA3 #### [facility] [address] [place] [address] COAGULATION SCREENon 022 aPTT Coag (Bld) [Time] 29 s Normal 26 - 39 [facility] Comment on above: Result Comment: Note new reference range as of 08/04/2021 at 10:00am. Performed By: #### R ENAL #### [facility] [address] [place] [address] PT Coag (PPP) [Time] 11.5 s Normal 9.8 - 13.4 [facility] Comment on above: Result Comment: Note new reference range as of 08/04/2021 at 10:00am. Performed By: #### R ENAL #### [facility] [address] [place] [address] PT, INR 1.0 Normal 0.9 - 1.1 [facility] Comment on above: Performed By: #### R ENAL #### [facility] [address] [place] [address] Complete Blood Count + Diffe vidya 09-19-2021 [...] 0.6 % 0.0 - 0.9 [facility]-Gastroen terology-[facility] I Work Phone: Comment on [...] connectors. Objective Data: Objective Information: T PRBPSpO2 [id number]/8596% Date/Time09/18 17: 17: 17: 17: 17:40 Range(36.4C [...] ----- Mn/Dy/Year TimeIntakeOutputNet Sep 17, 2021 10:00 [id number] The Intake and Output Totals for the last 24 hours are: IntakeOutputNet 1240nullnull Physical Exam by System: Neurological: A&Ox3 RUE D5, B5, T5, HG5, IO5 LUE D4+, B4+, T4+, HG4+, IO5 RLE HF 4+, KE4+, PF5, DF5 (pain limited) LLE HF 4-, KE4-, PF4, DF5 Recent Lab Results: Results: Recent Arterial Blood Gas Results 09/18/2021 11:48 [id number] 24 h range: ( 219 - 224 ) pH7.44 24 h range: ( 7.44 - 7.45 ) lQF600 24 h range: ( 37 - 40 ) SU1486 24 h range: ( 100 - 100 ) Base Excess2.8 24 h range: ( 1.8 - 2.8 ) Rjxxymrzznf43.2 24 h range: ( 25.7 - 27.2 [...] the note. I personally evaluated the patient [id number] Comments/ Additional Findings Patients postoperative CT scan [...] Assessment an (more content not included)... Normal [facility] Laboratory - Coagulationon 0 09-19-2021 [...] [Mass/Vol] 1.59 mg/dL Low 1.60 - 2.40 [facility] Comment on above: Performed By: #### R ENAL #### [facility] [address] [place] [address] PT Evaluation v2-attemptedon 09-19-2021 PT Evaluation v2-attempted Rehab: Info: Mode of Treatmentattempted Time IN11:37 Time OUT11:50 Total Treatment Tjisjdm77 Evaluation Not PerformedHistory obtained, BP assessed in supine 79/54mmHg, RN notified and redone with 71/51mmHg, will hold PT eval at this time and reattempt as medically appropriate Electronic Signatures: Kaykay Yoo (PT) (Signed 19-Sep-2021 12:14) Authored: Info Last Updated: 19-Sep-2021 12:14 by Kaykay Yoo (PT) Normal [facility] RENAL FUNCTION PANELon 09-19 Albumin [Mass/Vol] 3.4 g/dL Normal 3.4 - 5.0 [facility] Comment on above: Performed By: #### A FPA3 #### [facility] [address] [place] [address] Anion gap [Moles/Vol] 18 mmol/L Normal 10 - 20 [facility] Comment on above: Performed By: #### A FPA3 #### [facility] [address] [place] [address] Calcium [Mass/Vol] 8.3 mg/dL Low 8.6 - 10.6 [facility] Comment on above: Performed By: #### A FPA3 #### [facility] [address] [place] [address] Chloride [Moles/Vol] 100 mmol/L Normal 98 - 107 [facility] Comment on above: Performed By: #### A FPA3 #### [facility] [address] [place] [address] Creatinine [Mass/Vol] 0.60 mg/dL Normal 0.50 - 1.05 [facility] Comment on above: Performed By: #### A FPA3 #### [facility] [address] [place] [address] eGFR FEMALE >90 Normal >90 [facility] Comment on above: Result Comment: CALC ULATIONS OF ESTIMATED GFR ARE PERFORMED USING THE 2020 CKD-EPI STUDY REFIT EQUATION WITHOUT THE RACE VARIABLE FOR THE IDMS-TRACEABLE CREATININE METHODS. https://jasn.asnjournals.org/content/early//ASN.192 4392768 Performed By: #### A FPA3 #### [facility] [address] [place] [address] Glucose [Mass/Vol] 82 mg/dL Normal 74 - 99 [facility] Comment on above: Performed By: #### A FPA3 #### [facility] [address] [place] [address] HCO3 (Bld) [Moles/Vol] 26 mmol/L Normal 21 - 32 [facility] Comment on above: Performed By: #### A FPA3 #### [facility] [address] [place] [address] Phosphate [Mass/Vol] 2.8 mg/dL Normal 2.5 - 4.9 [facility] Comment on above: Result Comment: The performance characteristics of phosphorus testing in heparinized plasma have been validated by the individual laboratory site where testing is performed. Testing on heparinized plasma is not approved by the FDA; however, such approval is not necessary. Performed By: #### A FPA3 #### [facility] [address] [place] [address] Potassium [Moles/Vol] 4.5 mmol/L Normal 3.5 - 5.3 [facility] Comment on above: Performed By: #### A FPA3 #### [facility] [address] [place] [address] Sodium [Moles/Vol] 139 mmol/L Normal 136 - 145 [facility] Comment on above: Performed By: #### A FPA3 #### [facility] [address] [place] [address] Urea nitrogen [Mass/Vol] 9 mg/dL Normal 6 - 23 [facility] Comment on above: Performed By: #### A FPA3 #### [facility] [address] [place] [address] Albumin [Mass/Vol] 3.6 g/dL Normal 3.4 - 5.0 [facility] Comment on above: Performed By: #### R ENAL #### [facility] [address] [place] [address] Anion gap [Moles/Vol] 13 mmol/L Normal 10 - 20 [facility] Comment on above: Performed By: #### R ENAL #### [facility] [address] [place] [address] Calcium [Mass/Vol] 8.9 mg/dL Normal 8.6 - 10.6 [facility] Comment on above: Performed By: #### R ENAL #### [facility] [address] [place] [address] Chloride [Moles/Vol] 100 mmol/L Normal 98 - 107 [facility] Comment on above: Performed By: #### R ENAL #### [facility] [address] [place] [address] Creatinine [Mass/Vol] 0.51 mg/dL Normal 0.50 - 1.05 [facility] Comment on above: Performed By: #### R ENAL #### [facility] [address] [place] [address] eGFR FEMALE >90 Normal >90 [facility] Comment on above: Result Comment: CALC ULATIONS OF ESTIMATED GFR ARE PERFORMED USING THE 2020 CKD-EPI STUDY REFIT EQUATION WITHOUT THE RACE VARIABLE FOR THE IDMS-TRACEABLE CREATININE METHODS. https://jasn.asnjournals.org/content//ASN.442 2748518 Performed By: #### R ENAL #### [facility] [address] [place] [address] Glucose [Mass/Vol] 123 mg/dL High 74 - 99 [facility] Comment on above: Performed By: #### R ENAL #### [facility] [address] [place] [address] HCO3 (Bld) [Moles/Vol] 28 mmol/L Normal 21 - 32 [facility] Comment on above: Performed By: #### R ENAL #### [facility] [address] [place] [address] Phosphate [Mass/Vol] 2.8 mg/dL Normal 2.5 - 4.9 [facility] Comment on above: Result Comment: The performance characteristics of phosphorus testing in heparinized plasma have been validated by the individual laboratory site where testing is performed. Testing on heparinized plasma is not approved by the FDA; however, such approval is not necessary. Performed By: #### R ENAL #### [facility] [address] [place] [address] Potassium [Moles/Vol] 4.3 mmol/L Normal 3.5 - 5.3 [facility] Comment on above: Performed By: #### R ENAL #### [facility] [address] [place] [address] Sodium [Moles/Vol] 137 mmol/L Normal 136 - 145 [facility] Comment on above: Performed By: #### R ENAL #### [facility] [address] [place] [address] Urea nitrogen [Mass/Vol] 8 mg/dL Normal 6 - 23 [facility] Comment on above: Performed By: #### R ENAL #### [facility] [address] [place] [address] Renal Function Panelon 09-19 Albumin BCP dye [Mass/Vol] 3.4 g/dL 3.4 - 5.0 [facility]-Gastroen terology[facility] [address] [facility] Work Phone: Anion gap [Moles/Vol] 18 [...] RACE VARIABLE FOR THE IDMS-TRACEABLE CREATININE METHODS.https://jasn.asnjournals.org/content/ /ASN.7740184251 ANTIBODY IDENT.on 09-18-2021 ANTIBODY IDENT. Anti-E Normal [facility] Comment on above: Performed By: #### A FPA3 #### [facility] [address] [place] [address] ARTERIAL FULL PANELon 2021 Anion gap [Moles/Vol] 5 mmol/L Low 10 - 25 [facility] Comment on above: Performed By: #### A FPA3 ####[id number] [place] [address] BASE EXCESS-BLOOD 2.8 mmol/L Normal -2.0 - 3.0 [facility] Comment on above: Performed By: #### A FPA3 ####[id number] [place] [address] BICARB, CALCULATED 27.2 mmol/L High 22.0 - 26.0 [facility] Comment on above: Performed By: #### A FPA3 ####[id number] [place] [address] CALCIUM,IONIZED 1.20 mmol/L Normal 1.10 - 1.33 [facility] Comment on above: Performed By: #### A FPA3 ####[id number] [place] [address] Chloride [Moles/Vol] 106 mmol/L Normal 98 - 107 [facility] Comment on above: Performed By: #### A FPA3 ####[id number] [place] [address] Glucose [Mass/Vol] 149 mg/dL High 74 - 99 [facility] Comment on above: Performed By: #### A FPA3 ####[id number] [place] [address] Hematocrit (Bld) [Volume fraction] 38.0 % Normal 36.0 - 46.0 [facility] Comment on above: Performed By: #### A FPA3 ####[id number] [place] [address] HGB,CALCULATED 12.9 g/dL Normal 12.0 - 16.0 [facility] Comment on above: Performed By: #### A FPA3 ####[id number] [place] [address] Lactate [Moles/Vol] 0.9 mmol/L Normal 0.4 - 2.0 [facility] Comment on above: Performed By: #### A FPA3 ####[id number] [place] [address] Oxygen (Bld) [Partial pressure] 219 mm[Hg] High 85 - 95 [facility] Comment on above: Performed By: #### A FPA3 ####[id number] [place] [address] PATIENT TEMPERATURE 37.0 degrees C Normal [facility] Comment on above: Result Comment: NOTE : PATIENT RESULTS ARE NOT CORRECTED FOR TEMPERATURE. Performed By: #### A FPA3 ####[id number] [place] [address] PCO2 40 mmHg Normal 38 - 42 [facility] Comment on above: Performed By: #### A FPA3 ####[id number] [place] [address] pH (Bld) 7.44 [pH] High 7.38 - 7.42 [facility] Comment on above: Performed By: #### A FPA3 ####[id number] [place] [address] Potassium [Moles/Vol] 4.4 mmol/L Normal 3.5 - 5.3 [facility] Comment on above: Performed By: #### A FPA3 ####[id number] [place] [address] SO2 100 % Normal 94 - 100 [facility] Comment on above: Performed By: #### A FPA3 ####[id number] [place] [address] Sodium [Moles/Vol] 134 mmol/L Low 136 - 145 [facility] Comment on above: Performed By: #### A FPA3 ####[id number] [place] [address] Anion gap [Moles/Vol] 7 mmol/L Low 10 - 25 [facility] Comment on above: Performed By: #### A FPA3 #### [facility] [address] [place] [address] BASE EXCESS-BLOOD 1.8 mmol/L Normal -2.0 - 3.0 [facility] Comment on above: Performed By: #### A FPA3 #### [facility] [address] [place] [address] BICARB, CALCULATED 25.7 mmol/L Normal 22.0 - 26.0 [facility] Comment on above: Performed By: #### A FPA3 #### [facility] [address] [place] [address] CALCIUM,IONIZED 1.20 mmol/L Normal 1.10 - 1.33 [facility] Comment on above: Performed By: #### A FPA3 #### [facility] [address] [place] [address] Chloride [Moles/Vol] 105 mmol/L Normal 98 - 107 [facility] Comment on above: Performed By: #### A FPA3 #### [facility] [address] [place] [address] Glucose [Mass/Vol] 174 mg/dL High 74 - 99 [facility] Comment on above: Performed By: #### A FPA3 #### [facility] [address] [place] [address] Hematocrit (Bld) [Volume fraction] 37.0 % Normal 36.0 - 46.0 [facility] Comment on above: Performed By: #### A FPA3 #### [facility] [address] [place] [address] HGB,CALCULATED 12.6 g/dL Normal 12.0 - 16.0 [facility] Comment on above: Performed By: #### A FPA3 #### [facility] [address] [place] [address] Lactate [Moles/Vol] 1.1 mmol/L Normal 0.4 - 2.0 [facility] Comment on above: Performed By: #### A FPA3 #### [facility] [address] [place] [address] Oxygen (Bld) [Partial pressure] 224 mm[Hg] High 85 - 95 [facility] Comment on above: Performed By: #### A FPA3 #### [facility] [address] [place] [address] PATIENT TEMPERATURE 37.0 degrees C Normal [facility] Comment on above: Result Comment: NOTE : PATIENT RESULTS ARE NOT CORRECTED FOR TEMPERATURE. Performed By: #### A FPA3 #### [facility] [address] [place] [address] PCO2 37 mmHg Low 38 - 42 [facility] Comment on above: Performed By: #### A FPA3 #### [facility] [address] [place] [address] pH (Bld) 7.45 [pH] High 7.38 - 7.42 [facility] Comment on above: Performed By: #### A FPA3 #### [facility] [address] [place] [address] Potassium [Moles/Vol] 3.9 mmol/L Normal 3.5 - 5.3 [facility] Comment on above: Performed By: #### A FPA3 #### [facility] [address] [place] [address] SO2 100 % Normal 94 - 100 [facility] Comment on above: Performed By: #### A FPA3 #### [facility] [address] [place] [address] Sodium [Moles/Vol] 134 mmol/L Low 136 - 145 [facility] Comment on above: Performed By: #### A FPA3 #### [facility] [address] [place] [address] CT L Spine without Contrasto n 09-18-2021 [...] connectors. Objective Data: Objective Information: T PRBPSpO2 [id number]/4391% Date/Time09/18 6: 5: 5: 5: 5:56 Range(37C [...] Recent Arterial Blood Gas Results 09/18/2021 11:48 [id number] 24 h range: ( 219 - 224 ) pH7.44 24 h range: ( 7.44 - 7.45 ) yIL244 24 h range: ( 37 - 40 ) PR3853 24 h range: ( 100 - 100 ) Base Excess2.8 24 h range: ( 1.8 - 2.8 ) Jtvowvpvijq91.2 24 h range: ( 25.7 - 27.2 ) Assessment and Plan: Code Status: Code StatusFull Code Electronic Signatures: Bryan Mora) (Signed 18-Sep-2021 14:47) Authored: Service, Subjective Data, Objective Data, Assessment and Plan, Note Completion Last Updated: 18-Sep-2021 14:47 by Bryan Mora) Normal [facility] Daily Progress Note-Neurosur jinny 09-18-2021 Daily Progress Note-Neurosurgery Service: Neurosurgery Subjective Data: MORALES LEE is a 46 year old Female who is Hospital Day # 4. Objective Data: Objective Information: T PRBPSpO2 [id number]/4391% Date/Time1/14 6:041/14 5:56114 5:56114 5:561/14 5:56 Range(36.6C [...] Severe ---- Intake and Output ----- Mn/Dy/Year TimeInt[facility]OutEC[facility] Sep 17, 2021 10:00 [id number] Sep 17, 2021 2:00 [id number] The Intake and Output Totals for the last 24 hours are: IntakeOutputNet 1240nullnull Physical Exam by System: Neurological: A&Ox3 RUE D5, B5, T5, HG5, IO5 LUE D4+, B4+, T4+, HG4+, IO5 RLE HF 4+, KE4+, PF5, DF5 (pain limited) LLE HF 4-, KE4-, PF4, DF5 Recent Lab Results: Results: CBC: 09/16/2021 07:54 \\ Hgb / \\ 14.1 / WBC Plt 8.5 278 / Hct \\ / 42.7 \\ RBC: 4.70 MCV: 91 Neutrophil %: 53.3 RFP: 09/16/2021 07:54 NA+ Cl- BUN / 140 101 10 / ------- Glucose -- 88 K+ HCO3- Creat \\ 3.7 29 0.63 \\ Calcium : 8.9Anion Gap : 14 Albumin : 3.5 Phos : 3.4 Coagulation: 09/16/2021 07:54 PT / 11.6 / -------< INR < 1.0 PTT\\ 31 \\ Assessment and Plan: Code Status: Code StatusFull [...] the note. I personally evaluated the patient [id number] Electronic Signatures: Fidel Maciel (Resident)) (Signed 18-Sep-2021 06:55) Authored: Service, Subjective Data, Objective Data, Assessment and Plan, Note Completion Lex Frederick) (Signed 19-Sep-2021 10:18) Authored: Note Completion Co-Signer: Service, Subjective Data, Objective Data, Assessment and Plan, Note Completion Last Updated: 19-Sep-2021 10:18 by Lex Frederick) Normal [facility] Laboratory - Chemistry and C [...] dated 10/07/2020. MRI dated 12/11/2020 ACCESSION NUMBER(S): [id number] ORDERING CLINICIAN: ANGELO JUAREZ TECHNIQUE: Thin cut [...] as stated. This study was interpreted at [facility], [place], [place]. Electronically signed by: BOONE LAO MD Normal [facility] No Panel Informationon 09-18 0.0 [...] Respiratory Rate15 breath per minute Blood Pressure Rwwrthow60 mm/Hg Blood Pressure Eqycngfgj52 mm/Hg COVID 19 Results in Last 7 [...] 18-Sep-2021 06:59 by Lian Zuleta (SANAZ) Normal [facility] Radiologyon 09-18-2021 XR Chest Single [...] - 4.9 MG-G astroen terology-[place] [facility] Work Phone: Comment on above: The [...] >90 >90 MG-G astroen terology[facility] [facility] [address] [facility] Work Phone: Comment on above: CALCULATIONS OF IVY MATED GFR ARE PERFORMED USING THE 2020 CKD-EPI STUDY REFIT EQUATION WITHOUT THE RACE VARIABLE FOR THE IDMS-TRACEABLE CREATININE METHODS.https://jasn.asnjournals.org/content/early /ASN.1393200434 TH CHEST; 1 VIEWon 2 TH CHEST; 1 VIEW Patient Name: MORALES LEE STUDY: CHEST; 1 VIEW; 09/18/2021 2:38 pm INDICATION: s/p central line placement (right IJ double lumen) . COMPARISON: Radiograph dated 09/15/2021 ACCESSION NUMBER(S): [id number] ORDERING CLINICIAN: BRYAN MORA FINDINGS: Right IJ [...] Electronically signed by: LORELEI JOHNSTON MD Normal [facility] VENOUS FULL PANELon 09-18-19 22 Anion gap [Moles/Vol] 6 mmol/L Low 10 - 25 [facility] Comment on above: Performed By: #### V FPA3 #### [facility] [address] [place] [address] BASE EXCESS-BLOOD 3.9 mmol/L High -2.0 - 3.0 [facility] Comment on above: Performed By: #### V FPA3 #### [facility] [address] [place] [address] BICARB, CALCULATED 28.5 mmol/L High 22.0 - 26.0 [facility] Comment on above: Performed By: #### V FPA3 #### [facility] [address] [place] [address] CALCIUM,IONIZED 1.17 mmol/L Normal 1.10 - 1.33 [facility] Comment on above: Performed By: #### V FPA3 #### [facility] [address] [place] [address] Chloride [Moles/Vol] 103 mmol/L Normal 98 - 107 [facility] Comment on above: Performed By: #### V FPA3 #### [facility] [address] [place] [address] Glucose [Mass/Vol] 188 mg/dL High 74 - 99 [facility] Comment on above: Performed By: #### V FPA3 #### [facility] [address] [place] [address] Hematocrit (Bld) [Volume fraction] 39.0 % Normal 36.0 - 46.0 [facility] Comment on above: Performed By: #### V FPA3 #### [facility] [address] [place] [address] HGB,CALCULATED 13.3 g/dL Normal 12.0 - 16.0 [facility] Comment on above: Performed By: #### V FPA3 #### [facility] [address] [place] [address] Lactate [Moles/Vol] 1.2 mmol/L Normal 0.4 - 2.0 [facility] Comment on above: Performed By: #### V FPA3 #### [facility] [address] [place] [address] Oxygen (Bld) [Partial pressure] 56 mm[Hg] High 35 - 45 [facility] Comment on above: Performed By: #### V FPA3 #### [facility] [address] [place] [id number] PATIENT TEMPERATURE 37.0 degrees C Normal [facility] Comment on above: Result Comment: NOTE : PATIENT RESULTS ARE NOT CORRECTED FOR TEMPERATURE. Performed By: #### V FPA3 #### [facility] [address] [place] [address] PCO2 42 mmHg Normal 41 - 51 [facility] Comment on above: Performed By: #### V FPA3 #### [facility] [address] [place] [address] pH (Bld) 7.44 [pH] High 7.33 - 7.43 [facility] Comment on above: Performed By: #### V FPA3 #### [facility] [address] [place] [address] Potassium [Moles/Vol] 4.1 mmol/L Normal 3.5 - 5.3 [facility] Comment on above: Performed By: #### V FPA3 #### [facility] [address] [place] [address] SO2 91 % High 45 - 75 [facility] Comment on above: Performed By: #### V FPA3 #### [facility] [address] [place] [address] Sodium [Moles/Vol] 133 mmol/L Low 136 - 145 [facility] Comment on above: Performed By: #### V FPA3 #### [facility] [address] [place] [address] CORONAVIRUS 2019, SCREEN ASY MPTOMATICon 09-17-2021 SARS-CoV-2 (COVID-19) RNA ADRIÁN+probe Ql (Unsp spec) Not detected Normal Not Detected [facility] Comment on above: Result Comment: . This test has received FDA Emergency Use Authorization (EUA) and has been verified by [facility] ([facility]). This test is only authorized for the duration of time that circumstances exist to justify the authorization of the emergency use of in vitro diagnostic tests for the detection of SARS-CoV-2 virus and/or diagnosis of COVID-19 infection under section 564(b)(1) of the Act, 21 U.S.C. 360bbb-3(b)(1), unless the authorization is terminated or revoked sooner. [facility] is certified under CLIA-88 as qualified to perform high complexity testing. Testing is performed in the [facility] located at [address] [place] [address]. SARS-CoV-2/Flu/RSV Multiplex Test: Fact sheet for providers: https://www.fda.gov/media/691352/download Fact sheet for patients: https://www.fda.gov/media/426478/download Performed By: #### C OVSC ####[id number] [place] [address] Lab Specimen Source Nasal, Nasopharyngeal Normal [facility] Comment on above: Performed By: #### C OVSC ####[id number] [place] [address] Coronavirus 2019 RNA by PCR, Screening Asymptomticon 09-17-2021 Coronavirus 2019 RNA by PCR, Screening Asymptomtic Not detected Normal See Below [facility]-Gastroen terology-[facility] [facility] Work Phone: Comment on above: SOURCE: Nasal, Nasop haryngealReference Range: Not Detected.This test has received FDA Emergency Use Authorization (EUA) and has been verified by [facility] ([facility]). This test is only authorized for the duration of time that circumstances exist to justify the authorization of the emergency use of in vitro diagnostic tests for the detection of SARS-CoV-2 virus and/or diagnosis of COVID-19 infection under section 564(b)(1) of the Act, 21 U.S.C. 360bbb-3(b)(1), unless the authorization is terminated or revoked sooner. [facility] is certified under CLIA-88 as qualified to perform high complexity testing. Testing is performed in the [facility] located at [address] [place] [address].SARS-CoV-2/Flu/RSV Multiplex Test: Fact sheet for providers: https://www.fda.gov/media/096885/downloadFact sheet for patients: https://www.fda.gov/media/451707/download Covid 19 Resultson 2 SARS-CoV-2 (COVID-19) RNA [...] You may also be contacted by the [place] [facility] to see if any of [...] or Naproxen (Aleve) can also be used. Mwrv-rae-dvgggne cough and cold medicines can be used according to the instructions on the package. Some pmzx-pry-fmxdgbj medicines also contain acetaminophen. Make sure you [...] water are not available, use alcohol-based hand gyroscopic instrument tester. Avoid touching your eyes, nose, and mouth [...] 24 mariella (more content not included)... 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 Pt is [...] he has been working (cardoza at a [employer]), but she looks forward to his arrival [...] her suboxone. Objective: Objective Information: T PRBPSpO2 Value36.26128412/9095% Date/Time09/17 4: 10: 10:: 10:00 Range(35.7C - 36.6C ) (81 - 89 ) (10 - 23 ) (73 - 117 )/ (43 - 90 ) (91% - 96% ) As of 17-Sep-2021 08:00:00, patient is on 3 L/min of oxygen via nasal cannula. Pain reported at 09/17 8:00: 8 = Severe ---- Intake and Output ----- Mn/Dy/Year TimeIntakeOutputNet Sep 17, 2021 6:00 [id number] Sep 16, 2021 2:00 [id number] The Intake and Output Totals for the last 24 hours are: IntakeOutputNet [id number] Mental Status Exam: General: Awake, lying in [...] a Da (more content not included)... Normal [facility] Daily Progress Note-Neurosur jinny 09-17-2021 Daily Progress Note-Neurosurgery Service: Neurosurgery Subjective Data: MORALES LEE is a 46 year old Female who is Hospital Day # 3. Objective Data: Objective Information: T PRBPSpO2 Value35.8736464/4393% Date/Time09/16 18:541/12 18:5409/16 18:5409/16 18:5409/16 18:54 Range(35.7C - 36.4C ) (81 - 91 ) (15 - 24 ) (87 - 118 )/ (43 - 84 ) (91% - 96% ) As of 16-Sep-2021 18:54:00, patient is on 2 L/min of oxygen via nasal cannula. Pain reported at 09/16 16:34: 10 = Severe ---- Intake and Output ----- Mn/Dy/[facility]Out[facility] Sep 16, 2021 2:00 [id number] Physical Exam by System: Neurological: A&Ox3 RUE D5, B5, T5, HG5, IO5 LUE D4+, B4+, T4+, HG4+, IO5 RLE HF 4+, KE4+, PF5, DF5 (pain limited) LLE HF 4-, KE4-, PF4, DF5 Recent Lab Results: Results: CBC: 09/16/2021 07:54 \\ Hgb / \\ 14.1 / WBC Plt 8.5 278 / Hct \\ / 42.7 \\ RBC: 4.70 MCV: 91 Neutrophil %: 53.3 RFP: 09/16/2021 07:54 NA+ Cl- BUN / 140 101 10 / ------- Glucose -- 88 K+ HCO3- Creat \\ 3.7 29 0.63 \\ Calcium : 8.9Anion Gap : 14 Albumin : 3.5 Phos : 3.4 Coagulation: 09/16/2021 07:54 PT / 11.6 / -------< INR < 1.0 PTT\\ 31 \\ Assessment and Plan: Code Status: Code StatusFull [...] the note. I personally evaluated the patient [id number] Comments/ Additional Findings I again explained to [...] Updated: 19-Sep-2021 10:16 by Lex Frederick) Normal [facility] HCG,URINEon 09-17-2021 Beta HCG ( test) Ql (U) Negative Normal Negative [facility] Comment on above: Performed By: #### A FPA3 #### [facility] [address] [place] [address] Laboratory - Blood bankon ABO group Nom [...] 09-17-2021 REQUEST-LEUKOREDUCED RED CELLS ORDER RECD Normal [facility] Comment on above: Performed By: #### O GEOTHERMAL OPERATING ENGINEER #### [facility] [address] [place] [address] TYPE + SCREENon 09-17-2021 ABO TYPE O Normal [facility] Comment on above: Performed By: #### T +S #### [facility] [address] [place] [address] RH TYPE Positive Normal [facility] Comment on above: Performed By: #### T +S #### [facility] [address] [place] [address] Urine Teston 09-17 HCG ( test) Ql (U) Negative Negative MG-Gastroen terology-[place] l[facility] Work Phone: BNPon 09-16-2021 Natriuretic peptide B (Bld) [Mass/Vol] 37 pg/mL Normal 0 - 99 [facility] Comment on above: Result Comment: [...] Performed By: #### A FPA3 #### [facility] [address] [place] [address] CBC AND DIFFERENTIALon 09-16 % AUTOMATED IMMATURE GRAN 0.5 % Normal 0.0 - 0.9 [facility] Comment on above: Result Comment: Jaleesa ture Granulocyte Count (IG) includes promyelocytes, myelocytes and metamyelocytes but does not include bands. Percent differential counts (%) should be interpreted in the context of the absolute cell counts (cells/L). Performed By: #### C BCDF ####[id number] [place] [address] Basophils (Bld) [#/Vol] 0.04 10*3/uL Normal 0.00 - 0.10 [facility] Comment on above: Performed By: #### C BCDF ####[id number] [place] [address] Basophils/100 WBC (Bld) 0.5 % Normal 0.0 - 2.0 [facility] Comment on above: Performed By: #### C BCDF ####[id number] [place] [address] Eosinophils (Bld) [#/Vol] 0.26 10*3/uL Normal 0.00 - 0.70 [facility] Comment on above: Performed By: #### C BCDF ####[id number] [place] [address] Eosinophils/100 WBC (Bld) 3.0 % Normal 0.0 - 6.0 [facility] Comment on above: Performed By: #### C BCDF ####[id number] [place] [address] Erythrocyte distribution width (RBC) [Ratio] 13.0 % Normal 11.5 - 14.5 [facility] Comment on above: Performed By: #### C BCDF ####[id number] [place] [address] Hematocrit (Bld) [Volume fraction] 42.7 % Normal 36.0 - 46.0 [facility] Comment on above: Performed By: #### C BCDF ####[id number] [place] [address] Hemoglobin (Bld) [Mass/Vol] 14.1 g/dL Normal 12.0 - 16.0 [facility] Comment on above: Performed By: #### C BCDF ####[id number] [place] [address] Lymphocytes (Bld) [#/Vol] 3.17 10*3/uL Normal 1.20 - 4.80 [facility] Comment on above: Performed By: #### C BCDF ####[id number] [place] [address] Lymphocytes/100 WBC (Bld) 37.2 % Normal 13.0 - 44.0 [facility] Comment on above: Performed By: #### C BCDF ####[id number] [place] [address] MCHC (RBC) [Mass/Vol] 33.0 g/dL Normal 32.0 - 36.0 [facility] Comment on above: Performed By: #### C BCDF ####[id number] [place] [address] MCV (RBC) [Entitic vol] 91 fL Normal 80 - 100 [facility] Comment on above: Performed By: #### C BCDF ####[id number] [place] [address] Monocytes (Bld) [#/Vol] 0.47 10*3/uL Normal 0.10 - 1.00 [facility] Comment on above: Performed By: #### C BCDF ####[id number] [place] [address] Monocytes/100 WBC (Bld) 5.5 % Normal 2.0 - 10.0 [facility] Comment on above: Performed By: #### C BCDF ####[id number] [place] [address] Neutrophils (Bld) [#/Vol] 4.55 10*3/uL Normal 1.20 - 7.70 [facility] Comment on above: Performed By: #### C BCDF ####[id number] [place] [address] Neutrophils/100 WBC (Bld) 53.3 % Normal 40.0 - 80.0 [facility] Comment on above: Performed By: #### C BCDF ####[id number] [place] [address] NUCLEATED RBC 0.0 /100 WBC Normal 0.0-0.0 [facility] Comment on above: Performed By: #### C BCDF ####[id number] [place] [address] Platelets (Bld) [#/Vol] 278 10*3/uL Normal 150 - 450 [facility] Comment on above: Performed By: #### C BCDF ####[id number] [place] [address] RBC 4.70 x10E12/L Normal 4.00 - 5.20 [facility] Comment on above: Performed By: #### C BCDF ####[id number] [place] [address] WBC (Bld) [#/Vol] 8.5 10*3/uL Normal 4.4 - 11.3 [facility] Comment on above: Performed By: #### C BCDF ####[id number] [place] [address] COAGULATION SCREENon 022 aPTT Coag (Bld) [Time] 31 s Normal 26 - 39 [facility] Comment on above: Result Comment: Note new reference range as of 08/04/2021 at 10:00am. Performed By: #### V FPA3 #### [facility] [address] [place] [address] PT Coag (PPP) [Time] 11.6 s Normal 9.8 - 13.4 [facility] Comment on above: Result Comment: Note new reference range as of 08/04/2021 at 10:00am. Performed By: #### V FPA3 #### [facility] [address] [place] [address] PT, INR 1.0 Normal 0.9 - 1.1 [facility] Comment on above: Performed By: #### V FPA3 #### [facility] [address] [place] [address] Clinical Event Note-ADMISSIO N CLARIFICATIONon 09-16-2021 Clinical [...] and monitoring for withdrawal. Provider/Team Contact Info-Pager [phone] Electronic Signatures: Sharmin Guaman (JUNIOR ELECTRICAL ENGINEER-LITIGATION SECRETARY) (Signed 16-Sep-2021 12:07) Authored: Clinical Event Note Last Updated: 16-Sep-2021 12:07 by Sharmin Guaman (JUNIOR ELECTRICAL ENGINEER-LITIGATION SECRETARY) Normal [facility] Complete Blood Count + Diffe rentialon 09-16-2021 Basophils/100 WBC (Bld) 0.5 % 0.0 - 2.0 M G-Gastroen terology-[facility] [facility] Work Phone: Erythrocyte distribution width (RBC) [Ratio] 13.0 % See Below MG-Gastroen terology-[place] [facility] Work Phone: Comment on above: Reference Range: 11. 5 - 14.5 Hematocrit (Bld) [Volume fraction] 42.7 % See Below MG-Gastroen terology-[place] [facility] Work Phone: Comment on above: Reference Range: 36. 0 - 46.0 Hemoglobin (Bld) [Mass/Vol] 14.1 g/dL See Below MG-Gastroen terology-[place] 6 I Work Phone: Comment on above: Reference Range: 12. 0 - 16.0 Lymphocytes/100 WBC (Bld) 37.2 % See Below MG-Gastroen terology-[place] [facility] Work Phone: Comment on above: Reference Range: 13. 0 - 44.0 MCHC (RBC) [Mass/Vol] 33.0 g/dL See Below MG- Gastroen terology-[place] [facility] [facility] Work Phone: Comment on above: Reference Range: 32. 0 - 36.0 MCV (RBC) [Entitic vol] 91 fL 80 - 100 M G-Gastroen terology-[place] [facility] Work Phone: Monocytes/100 WBC (Bld) 5.5 [...] 0.0 {/100_WBC} 0.0-0.0 MG-Gastroen terology-[facility] Work Phone: Consult-Painon 09-16-2021 Consult-Pain Service: [...] the note. I personally evaluated the patient [id number] Electronic Signatures: Chidi Lamar (Fellow)) (Signed 16-Sep-2021 [...] From Consult - Psychiatry 15-Sep-2021 20:42 Normal [facility] Consult-Perioperative Medici neon 09-16-2021 Consult-Perioperative [...] penicillin: Unknown Objective: Objective Information: T PRBPSpO2 Value36.10117648/8491% Date/Time09/16 11:131/12 12:4909/16 12:4909/16 12:4909/16 12:49 Range(36.3C [...] 100 mg (more content not included)... Normal [facility] Cult, Urineon 09-16-2021 Bacteria identified Cx Nom (U) Abnormal [facility]-Gastroen terology-[place] [facility] Work Phone: Daily Progress Note-Neurosur jinny 09-16-2021 Daily Progress Note-Neurosurgery Service: Neurosurgery Subjective Data: MORALES LEE is a 46 year old Female who is Hospital Day # 3. Objective Data: Objective Information: T PRBPSpO2 Value36.4854554/6693% Date/Time09/16 1: 4: 4: 4: 4:00 Range(36.3C [...] (suboxone) in AM COWS psych recs SCD's, [facility] Attestation: Note Completion: I [...] the note. I personally evaluated the patient [id number] Comments/ Additional Findings TO OR this Tuesday if medically optimized for T12 - Pelvis fusion and Instrumentation. Pain consult for management regrading Suboxone and pain control in the perioperative period. US LE MRI of the lumbar spine., Lex Frederick MD, [facility], FAANS Director - Minimally Invasive Spine Surgery [facility] Melt Supervisor of Neurological Surgery [facility] [employer] [facility] [place], [place] Electronic Signatures: Fidel Maciel (Resident)) (Signed 16-Sep-2021 04:33) Authored: Service, Subjective Data, Objective Data, Assessment and Plan, Note Completion Lex Frederick) (Signed 16-Sep-2021 10:22) Authored: Note Completion Co-Signer: Service, Subjective Data, Objective Data, Assessment and Plan, Note Completion Last Updated: 16-Sep-2021 10:22 by Lex Frederick) Normal [facility] EMR ADDONon 09-16-2021 ADDON CONFIRMATION REQUEST REC'D Normal [facility] Comment on above: Performed By: [...] above: . <100 pg/mL - Heart failure [id number] pg/mL - Intermediate probability of acute heart. [...] [Mass/Vol] 3.5 g/dL Normal 3.4 - 5.0 [facility] Comment on above: Performed By: #### R ENAL #### [facility] [address] [place] [address] Anion gap [Moles/Vol] 14 mmol/L Normal 10 - 20 [facility] Comment on above: Performed By: #### R ENAL #### [place] [address] [place] [address] Calcium [Mass/Vol] 8.9 mg/dL Normal 8.6 - 10.6 [facility] Comment on above: Performed By: #### R ENAL #### [facility] [address] [place] [address] Chloride [Moles/Vol] 101 mmol/L Normal 98 - 107 [facility] Comment on above: Performed By: #### R ENAL #### [facility] [address] [place] [address] Creatinine [Mass/Vol] 0.63 mg/dL Normal 0.50 - 1.05 [facility] Comment on above: Performed By: #### R ENAL #### [facility] [address] [place] [address] eGFR FEMALE >90 Normal >90 [facility] Comment on above: Result Comment: CALC ULATIONS OF ESTIMATED GFR ARE PERFORMED USING THE 2020 CKD-EPI STUDY REFIT EQUATION WITHOUT THE RACE VARIABLE FOR THE IDMS-TRACEABLE CREATININE METHODS. https://jasn.asnjournals.org/content//ASN.799 5438179 Performed By: #### R ENAL #### [facility] [address] [place] [address] Glucose [Mass/Vol] 88 mg/dL Normal 74 - 99 [facility] Comment on above: Performed By: #### R ENAL #### [facility] [address] [place] [address] HCO3 (Bld) [Moles/Vol] 29 mmol/L Normal 21 - 32 [facility] Comment on above: Performed By: #### R ENAL #### [facility] [address] [place] [address] Phosphate [Mass/Vol] 3.4 mg/dL Normal 2.5 - 4.9 [facility] Comment on above: Result Comment: The performance characteristics of phosphorus testing in heparinized plasma have been validated by the individual laboratory site where testing is performed. Testing on heparinized plasma is not approved by the FDA; however, such approval is not necessary. Performed By: #### R ENAL #### [facility] [address] [place] [address] Potassium [Moles/Vol] 3.7 mmol/L Normal 3.5 - 5.3 [facility] Comment on above: Performed By: #### R ENAL #### [facility] [address] [place] [address] Sodium [Moles/Vol] 140 mmol/L Normal 136 - 145 [facility] Comment on above: Performed By: #### R ENAL #### [facility] [address] [place] [address] Urea nitrogen [Mass/Vol] 10 mg/dL Normal 6 - 23 [facility] Comment on above: Performed By: #### R ENAL #### [facility] [address] [place] [address] Renal Function Panelon 09-16 Albumin BCP dye [...] 29 mmol/L 21 - 32 [facility]-Gastro en terology-[place] 6 I Work Phone: Creatinine [Mass/Vol] [...] - 5.3 MG- Gastroen terology-[place] [facility] Work Phone: Sodium [Moles/Vol] 140 mmol/L 136 - 145 MG-Gas troen terology-[place] [facility] 6 I Work Phone: Urea nitrogen [Mass/Vol] 10 mg/dL 6 - 23 [facility]Gastroen terology-[place] 6 [facility] Work Phone: Renal Function Panel >90 >90 MG-G astroen terology-[place] [facility] [facility] Work Phone: Comment on above: CALCULATIONS OF IVY MATED GFR ARE PERFORMED USING THE 2020 CKD-EPI STUDY REFIT EQUATION WITHOUT THE RACE VARIABLE FOR THE IDMS-TRACEABLE CREATININE METHODS.https://jasn.asnjournals.org/content/ /ASN.1294859134 [facility] 09-16-2021 BACTERIA 2+ /HPF Abnormal [facility] Comment on above: Performed By: #### U AMIC ####[id number] [place] [address] Mucus Ql (Urine sed) 1+ /LPF Normal [facility] Comment on above: Performed By: #### U AMIC ####[id number] [place] [address] RBC 3 /HPF Normal 0-5 [facility] Comment on above: Performed By: #### U AMIC ####[id number] [place] [address] SQUAMOUS EPITH. CELLS 2 /HPF Normal [facility] Comment on above: Performed By: #### U AMIC ####[id number] [place] [address] WBC 115 /HPF Abnormal 0-5 [facility] Comment on above: Performed By: #### U AMIC ####[id number] [place] [address] URINALYSISon 09-16-2021 Appearance (U) HAZY Normal CLEAR [facility] Comment on above: Performed By: #### U A ####[id number] [place] [address] Bilirubin Ql (U) Negative Normal NEGATIVE [facility] Comment on above: Performed By: #### U A ####[id number] [place] [address] Color (U) YELLOW Normal STRAW,YELL OW [facility] Comment on above: Performed By: #### U A ####[id number] [place] [address] Glucose Ql (U) Negative Normal NEGATIVE [facility] Comment on above: Performed By: #### U A ####[id number] [place] [address] Hemoglobin Ql (U) Negative Normal NEGATIVE [facility] Comment on above: Performed By: #### U A ####[id number] [place] [address] Ketones Ql (U) Negative Normal NEGATIVE [facility] Comment on above: Performed By: #### U A ####[id number] [place] [address] Leukocyte esterase Test strip Ql (U) LARGE (3+) Abnormal NEGATIVE [facility] Comment on above: Performed By: #### U A ####[id number] [place] [address] Nitrite Ql (U) Positive Abnormal NEGATIVE [facility] Comment on above: Performed By: #### U A ####[id number] [place] [address] pH (U) 6.0 [pH] Normal 5.0 - 8.0 [facility] Comment on above: Performed By: #### U A ####[id number] [place] [address] Protein Ql (U) Negative Normal NEGATIVE [facility] Comment on above: Performed By: #### U A ####[id number] [place] [address] Specific gravity (U) [Rel density] 1.011 Normal 1.005 - 1.035 [facility] Comment on above: Performed By: #### U A ####[id number] [place] [address] Urobilinogen (U) [Mass/Vol] 2.0 mg/dL High 0.0 - 1.9 [facility] Comment on above: Result Comment: [...] positive urobilinogen. Performed By: #### U A ####[id number] [place] [address] URINE CULTURE,BACTERIALon URINE CULTURE,BACTERIAL PATIENT: Fay LEE LOCATION: [facility]#: [id number] : 71 AGE: SEX: F ORDERED BY: [...] DEPENDENT NS=NONSUSCEPTIBLE X=REPORTED IN ERROR ___ Normal [facility] Comment on above: Performed By: #### A FPA3 #### [facility] [address] [place] [address] Urinalysison 09-16-2021 Color (U) YELLOW See Below MG-Gastroen engageSimply-W4 6 [facility] Work Phone: Comment on above: Reference Range: STR AW,YELLOW Glucose Ql (U) Negative NEGATIVE MG-Gastroe n terology-[place] [facility] Work Phone: Ketones Ql (U) Negative NEGATIVE MG-Gastroe n terology-[facility] Work Phone: Leukocyte esterase Test strip Ql (U) LARGE (3+) Abnormal NEGATIVE MG-Gastroen terology-[place] 6 I Work Phone: pH (U) 6.0 [pH] 5.0 - 8.0 MG-Gastroen terology-[place] [facility] 6 I Work Phone: Protein (U) [Mass/Vol] Negative NEGATIVE MG -Gastroen terology-[place] [facility] 6 I Work Phone: RBC (U) [#/Vol] Negative NEGATIVE MG-Gastro en terology-[facility] [address] [facility] Work Phone: Specific gravity (U) [Rel density] 1.011 1 See Below MG-Gastroen terology-[facility] [address] [facility] Work Phone: Comment on above: Reference Range: 1.0 05 - 1.035 Urinalysis Positive Abnormal NEGATIVE [facility]-Gastroen terology-[facility] [address] [facility] Work Phone: Urinalysis 2.0 mg/dL above high threshold 0.0 - 1.9 [facility]-Gastroen terology-[facility] [address] [facility] Work Phone: Comment on above: Due [...] Urinalysis Negative NEGATIVE [facility] Work Phone: Urinalysis HAZY CLEAR [facility]astroen terology[facility] Work Phone: Urinalysis, Microscopicon Urinalysis, Microscopic 1+ M G-Gastroen terology-[facility] 6 I Work Phone: Urinalysis, Microscopic [...] 09-16-2021 VAS LAB Venous Duplex Ultrasound DVT [place] [address] and Vascular Lab Report Lower Venous Duplex Ultrasound Patient Name: MORALES LEE Reading Physician: [id number] Arjun Romero MD, RPVI Study Date: 09/16/2021 Referring Physician: [id number] HARRISON RAGSDALE MRN/PID: [id number] PCP: Accession/Order#: [id number] CC Report to: Date of : 1975 Technologist: Isai Burleson RVT Gender: F Technologist 2: Admission Status: Outpatient Location Performed: [facility] Diagnosis/ICD: M79.89-Left leg swelling; M79.89-Right leg swelling Procedure/CPT: 20995 Peripheral venous duplex scan for DVT complete-85309 CONCLUSIONS: Right Lower Venous: No evidence of acute deep vein thrombus visualized in the right lower extremity. Left Lower Venous: Negative for acute thrombus in the visulaized vessels. Posterior tibial and peroneal veins were visualized in segments due to swelling, therefore, can not rule out acute thrombus. Additional Findings: Imaging \\EANDE\\ Doppler Findings: Right Compressible Thrombus Flow Iliac [...] Spontaneous/Phasic Peroneal Yes None PTV Yes None [id number] Arjun Romero MD, YOLIE Final Normal [facility] VAS LAB Venous Duplex Ultra sound for DVTon 09-16-2021 [facility] LAB Venous Duplex Ultrasound for DVT [facility]astroen terology-[place] 6 I Work Phone: No Panel Informationon 09-15 [email or web address] [email or web address] [email or web address] ?RetrieveTestByDateTime?P bcgalbEC=[id number]&Date=1 09-05-2021&Time=19%3a14%3a 23%3a00&TestType=ECG&Site =1&OutputType=PDF&Ext=PDF [facility]astroen terology-[place] [place] 6 [...] I Work Phone: [email or web address] 1:808 [email or web address] ?RetrieveTestByDateTime?P zbwfumYB=[id number]&Date=1 09-05-2021&Time=19%3a14%3a 42%3a00&TestType=ECG&Site =1&OutputType=PDF&Ext=PDF [facility]astroen terology-[place] [place] 6 [...] 6 [facility] Work Phone: [phone] [facility]-Gastroen terology-[place] 6 I Work Phone: Order Reconciliationon 09-15 Order Reconciliation Page 1 Admission Reconciliation Document Reconciliation Type: Admission requested on behalf of Concetta Shi (Advanced Practice Nurse) done by Concetta Shi ([facility]) Admission - Reconciliation: 15-Sep-2021 19:03 by: [...] to Incomplete: 30-Sep-2021 14:18 by: Concetta Shi ([facility]) Admission - Reconciliation: 30-Sep-2021 14:20 by: Concetta Shi ([facility]) Home MedicationsEnteredLast Dose TakenReconciled with current Order Reconciliation Comment/ Additional Information acetaminophen 325 mg oral tablet 2 tab(s) orally every 6 hours, as needed while having post operative avra36-Yhl-1873 Reviewed and Held Ambien CR 12.5 mg oral tablet, extended release 1 tab(s) oral zah73-Gkr-1339 Zolpidem Tablet (AMBIEN)DOSE = 10 mg Oral At BedtimeNotes from Pharmacy: Substitution For Zolpidem (Ambien CR) 12.5 mg at Bedtime Ambien CR 12.5 mg oral tablet, extended release continued as the inpatient order Zolpidem Ankle Foot Orthosis for foot xjav08-Bsg-7579 Reviewed and Held betamethasone topical valerate 0.1% topical cream 1 milena topical prn 15-Sep-2021 EnteredInError Reviewed and Held Bilateral Prafos - orthotics to fit, - ICD 10: R26.0, M21.37, M62.81 30-Sep-2021 Reviewed and Held calcium-vitamin D 500 mg-200 intl units (5 mcg) oral tablet 1 tab(s) orally 4 times a sbx16-Coz-7133 Calcium 500 mg - Vitamin D 200 [...] times a day, as needed for muscle zpdodw37-Cqc-3478 Cyclobenzaprine Tablet (FLEXERIL)DOSE = 10 mg Oral [...] topical 1% topical gel 1 milena topical few00-Vlh-7508 Reviewed and Held DULoxetine 30 mg oral [...] 2 tab(s) orally once a day, As Chwrmz67-Idz-0126 Reviewed and Held gabapentin 800 mg oral tablet 1 tab(s) oral 3 times a qko93-Nsj-6128 Gabapentin Capsule (NEURONTIN)DOSE = 800 mg Oral 3 Times a Day gabapentin 800 mg oral tablet continued as the inpatient order Gabapentin LEFT AFO -Orthotics to fit, ICD 10: M21.6381-Laf-2014 Reviewed and Held lidocaine 5% topical film Apply topically to affected area once a day, As Needed near surgical incision for incisional pain 15-Sep-2021 EnteredInError Reviewed and Held lisinopril 20 mg oral tablet 1 tab(s) oral once a zdf46-Pil-2639 Lisinopril Tablet (PRINIVIL, ZESTRIL)DOSE = 20 mg [...] patch TransDermal Every 24 HoursNotes from Pharmacy: [facility] nicotine 14 mg/24 hr transdermal film, [...] - available over the counter at any hzpcmxyn50-Qmk-3888 Reviewed and Held RIGHT AFO - Orthotics to fit, - M21.4160-Kpk-6125 Reviewed and Held sennosides-docusate 8.6 mg-50 mg oral tablet 2 tab(s) orally 2 times a day , -Take while using oxycodone for post operative pain to prevent contipation 15-Sep-19 (more content not included)... Normal [facility] Radiologyon 09-15-2021 XR Chest Single view Normal MG-G astroen terology-[facility]endo moura [address] [facility] Work Phone: TH CHEST 1 VIEWon 09-15-2021 TH CHEST 1 VIEW Patient Name: MORALES LEE STUDY: CHEST 1 VIEW; 09/15/2021 7:21 pm INDICATION: pre-op . COMPARISON: 12/26/2020. ACCESSION NUMBER(S): [id number] ORDERING CLINICIAN: TOSHA BORJA FINDINGS: CARDIOMEDIASTINAL SILHOUETTE: [...] Electronically signed by: Esther PEDERSON MD Normal [facility] Established Visit (Neurosurg ariana)on 09-08-2021 [...] in the Neurosurgery Spine Clinic at the [facility]. She is a very pleasant 46-year-old female, [...] obvious instability (more content not included)... Normal [facility] No Panel Informationon 09-08 Normal MG-Neurosur [facility]amson[facility]it[facility]iguel Work Phone: Please click on the link [...] and T6-L4 Fusion. COMPARISON: None. ACCESSION NUMBER(S): [id number] ORDERING CLINICIAN: LEX FREDERICK FINDINGS: Fused PA [...] Electronically signed by: JOSEPH SALAZAR MD Normal [facility] Tobacco Screening.on Fall risk assessment b) One or more fall s in the last year MG-Nuha daviesFeedjit[facility]iguel Work Phone: Tobacco use status CPHS a) Yes M G-SL8Z | [employer]amson[employer]Miguel Work Phone: Established Visit (Neurosurg ariana)on 05-05-2021 Established Visit (Neurosurgery) History of Present Illness I just had the pleasure of seeing Mrs. Jesus villarreal in the Neurosurgery Spine Clinic at the [facility]. She is a very pleasant 45 -year-old [...] in Ms. LEE care. Lex Frederick MD, [facility], FAANS Director - Minimally Invasive Spine Surgery [facility] Melt Supervisor of Neurological Surgery [facility] [employer] [place], [place] Some of this note was completed using [employer] voice recognition technology and sometimes the software [...] May 05 2021 9:18PM EST (Author) Normal [facility] Established Visit (Neurosurg ariana)on 01-08-2021 Established Visit [...] in the Neurosurgery Spine Clinic at the [facility]. She is a very pleasant 45 -year-old [...] the further treatment plan. Lex Frederick MD, [facility], FAANS Director - Minimally Invasive Spine Surgery [facility] Septic Cleaner of Neurological Surgery [facility] [employer] [place], [place] Some of this note was completed using [employer] voice recognition technology and sometimes the software [...] 12:18:23 PM Penicillins Hives;; Recorded By: Lucero Lorwy; 10/28/2020 12:18:23 PM Current Meds Medication NameInstruction [...] Unspecified cord compression. COMPARISON: None. ACCESSION NUMBER(S): [id number] ORDERING CLINICIAN: LEX FREDERICK TECHNIQUE: Multiplanar and [...] spine. Electronically signed by: LENNY HAGER MD [facility] NR MRI L-SPINE WOon 12-12-19 21 NR MRI L-SPINE WO Patient Name: MORALES LEE STUDY: MRI L-SPINE WO; ; 12/11/2020 1:38 pm INDICATION: Lumbar Pain Scoliosis, unspecified Low back pain. COMPARISON: CT lumbar spine from 10/07/2020. MRI lumbar spine from 03/11/2016. ACCESSION NUMBER(S): [id number] ORDERING CLINICIAN: LEX FREDERICK TECHNIQUE: MRI of [...] multiple levels. This study was interpreted at [facility]. Electronically signed by: WESLEY CARBAJAL MD [facility] Initial Visit (Neurosurgery) on 10-28-2020 Initial Visit [...] Status:Resulted - Preliminary,Retrospective By Protocol Authorization; Done: [id number] 12:00AM Reason: Unspecified for Xray Spine, entire thoracic/lumbar, include skull, cervical and sacral spine when performed, 2 or 3 view Radiologist to Determine Optimal Study : Y What are the patient's signs and symptoms? : Lumbar Pain SocHx: Current smoker Tobacco Use Screening; Status:Complete; Done: [id number] Patient Discussion/Summary It was a pleasure to see Ms. LEE at the Neurosurgery Spine Clinic at [facility]. Ms. 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 She now has been having severe symptoms [...] evaluated by another spine surgeon at the [facility] who recommended urgent surgery for [...] even walk (more content not included)... Normal [facility] 07-10-2019 CNPN Telephone (SPNMMN) ----- MORALES LEE ([id number]) 1975 F Date Time Provider Department 07/10/19 DIXIE TEE [facility] During your visit today, we recorded [...] Order(s):CONSULT TO ORTHOPAEDIC SURGERY [19991006] Order #: [id number]: 1 Prescriptions as of 07/10/2019 Sig: LISINOPRIL [...] by DIXIE TEE MD on 07/10/19 [facility] CNOVon 07-09-2019 CNOV Office Visit (SPNSMN ) ----- MORALES LEE ([id number]) 1975 F Date Time Provider Department 07/09/19 9:30 AM STEVENSON QUAN SPNSMN During your visit today, we recorded the following information about you: Pulse Respiration Blood pressure Weight 89/minute 18/minute 124/74 95.8 kg Height 1.499 m Stevenson Quan MD 07/09/2019 2:56 PM Signed SPINE SURGERY OUTPATIENT CONSULT SERVICE DATE: 07/09/2019 PCP: No primary care provider on file. REFERRING PROVIDER: Dixie Tee MD [address] [facility] [address] Consult requested for an opinion regarding the [...] file Gets together: Not on file Attends mandaeism service: Not on file Active member of [...] with the patient or the patient?s personal renewals representative. The patient has elected to schedule surgery at this time or intends to call the office with a surgical date. Shared decision making occurred while obtaining informed consent. 1. Imaging: Thoracic CT Without Contrast 2. Encouraged to call the office with any questions or concerns 3. 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] Other Visit Diagnosis:Spinal stenosis of thoracic region [M48.04] Order(s):CT THORACIC SPINE WO IVCON [1929117] Order #: [id number] FUTURE Prescriptions as of 07/09/2019 Sig: LISINOPRIL [...] by STEVENSON QUAN MD on 07/09/19 [facility] OBSOLETEon 07-09-2019 OBSOLETE Procedure (EMGMN) ----- MORALES LEE ([id number]) 1975 F Date Time Provider Department 07/09/19 7:45 AM EMG 1 NEUR MAIN EMGMN During your visit today, we recorded the following information about you: Referring Provider: DIXIE TEE [[id number]] Allergies As of Date: 07/09/2019 Noted Allergy [...] upper limb [G56.21] Order(s):EMG(NEURO/NI) [[id number]] Order #: [id number]: 1 Prescriptions as of 07/09/2019 Sig: LISINOPRIL [...] by JHON EASON MD on 07/09/19 Normal [facility] PROGRESSon 07-09-2019 PROGRESS HNO ID: [id number] Author: Stevenson Quan Service: ? Author Type: Physician Type: Progress Notes Filed: 07/09/2019 2:56 PM Note Text: SPINE SURGERY OUTPATIENT CONSULT SERVICE DATE: 07/09/2019 PCP: No primary care provider on file. REFERRING PROVIDER: Dixie Tee MD [address] [facility] [address] Consult requested for an opinion regarding the [...] file Gets together: Not on file Attends mandaeism service: Not on file Active member of [...] with the patient or the patient?s personal renewals representative. The patient has elected to schedule [...] 09, 2019 TIME: 10:24 AM PAGER: Normal [facility] OT-XR DEXA BONE DENSITY IMPO RTon 07-06-2019 OT-XR DEXA BONE DENSITY IMPORT Images were obtained outside of [facility] [id number] Normal [facility] CASE MGT INIT [facility] 2018 CASE MGT INIT [facility] HNO ID: [id number] Author: Kimberly (Rn) MERA Dunaway Service: ? Author Type: Registered Nurse Type: Care Mgt Initial Assessment Filed: 06/20/2019 12:25 PM Note Text: CARE MANAGEMENT: ASSESSMENT AND DISCHARGE PLAN SERVICE DATE: 06/20/2019 SERVICE TIME: 12:21 PM PRIMARY CARE PHYSICIAN: No primary care provider on file. 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 No Advance Directive: Current Advance Directive: None Flying I Instructor Attempted to Assist with AD Completion: Yes [...] None Has the Patient Been in a Assisted Facility in the Past 30 days? N/A SOCIAL: Living Arrangement: Home Lives With: Spouse Financial Resources: Disabled Primary Contact: Extended Emergency Contact Information Primary Emergency Contact: Belinda Lee Address: [address] [place] [address] [facility] Mobile Relation: Spouse [...] 0 I feel financially burdened by my kfg-fb-jmjxul expenses for my prescription medication: Disagree completely [...] with . Does not utilize any DME, half-way or community resources. Has d/c transportation via . Anticipate transitional care plan of home, no skilled needs identified at this time. TCC will remain available to assist as needed with transition planning. SIGNATURE: Kimberly Dunaway RN PATIENT NAME: Morales Lee DATE: June 20, 2019 TIME: 12:21 PM PAGER/CONTACT #: [phone] Normal [facility] CBCon 06-20-2019 Erythrocyte distribution width (RBC) [Ratio] 12.6 % Normal 11.5-15.0 [facility] Comment on above: Performed By: #### C BC #### [place] [phone] Hematocrit (Bld) [Volume fraction] 48.7 % High 36.0-46.0 [facility] Comment on above: Performed By: #### C BC #### [place] [phone] Hemoglobin (Bld) [Mass/Vol] 16.8 g/dL High 11.5-15.5 [facility] Comment on above: Performed By: #### C BC #### [place] [phone] MCH (RBC) [Entitic mass] 31.1 pG Normal 26.0-34.0 [facility] Comment on above: Performed By: #### C BC #### [place] [phone] MCHC (RBC) [Mass/Vol] 34.5 g/dL Normal 30.5-36.0 [facility] Comment on above: Performed By: #### C BC #### [place] [phone] MCV (RBC) [Entitic vol] 90.0 fL Normal 80.0-100.0 [facility] Comment on above: Performed By: #### C BC #### [place] [phone] Platelet mean volume (Bld) [Entitic vol] 10.6 fL Normal 9.0-12.7 [facility] Comment on above: Performed By: #### C BC #### [place] [id number] [place] [address] Platelets (Bld) [#/Vol] 334 10*3/uL Normal 150-400 [facility] Comment on above: Performed By: #### C BC #### [place] [address] RBC (Bld) [#/Vol] 5.41 10*6/uL High 3.90-5.20 [facility] Comment on above: Performed By: #### C BC #### [place] [address] WBC (Bld) [#/Vol] 10.85 10*3/uL Normal 3.70-11.00 [facility] Comment on above: Performed By: #### C BC #### [place] [address] CONSULTon 06-20-2019 CONSULT HNO ID: [id number] Author: Evelyn Resendez Service: Pain Management Author [...] substances - including suboxone - from [facility]. Of note, pt has followed once [...] me to leave. She is now leaving [place]. 3. Will sign off _ SUBJECTIVE CHIEF [...] activity was identified. 06/20/2019 by Evelyn Resendez APRN.LITIGATION SECRETARY PAST MEDICAL HISTORY Diagnosis Date - Degenerative [...] file Gets together: Not on file Attends mandaeism service: Not on file Active member of [...] 20, 2019 TIME: 8:24 AM PAGER/CONTACT #: [phone] (M-F 8-5) [facility] CT BRAIN WO IVCONon 06-20-[address] BRAIN WO IVCON * * *Final Report* * * DATE OF EXAM: Jun 20 2019 1:31AM [facility] 0504 - CT BRAIN WO IVCON / [...] No large cortical infarct or acute hemorrhage. Ship'S Cook: [id number] Transcribe Date/Time: Jun 20 2019 1:33A Dictated by : DAVONTE MOY MD This examination was interpreted and the report reviewed and electronically signed by: DAVONTE MOY MD on Jun 20 2019 1:35AM EST [id number] [facility] ECG COMPLETEon 06-20-2019 ECG COMPLETE NAME : MORALES LEE PID : [id number] : 1975 Gender : Female Race : ORD : [id number] Procedure Date : Jun 19 2019 23:57:03 Edit Date : Jun 20 2019 07:51:18 Diagnosis:Sinus rhythm Normal ECG no STEMI 1200a Confirmed by MD ARREDONDO LISA ([id number]), technical editor FOREST WALTON ([id number]) on 06/20/2019 7:51:18 AM Ventricular Rate : 85 BPM Atrial Rate : 85 BPM P-R Interval : 137 ms QRS Duration : 91 ms Q-T Interval : 365 ms QTC Calculation(Bazett) : 434 ms P [place] : 51 degrees R [place] : -13 degrees T [place] : 61 degrees Test Reason : Chest Pain Location : 302 : ED AVED-1 Overread By : MD ARREDONDO LISA Edited By : FOREST WALTON Referred By : , Acquired by : [id number], [facility] ED NOTEon 06-20-2019 ED NOTE HNO ID: [id number] Author: Yuki Mckenzie) MERA Cruz Service: ? Author Type: Registered Nurse Type: ED Notes Filed: 06/20/2019 1:40 AM Note Text: Patient got CT, it is still pending and Jessie MESA said ok to transfer to [facility] with out results pending. Patient agreeing and understanding of transfer. updated on POC and transfer via telephone. DM here to take patient at this time. Pain is not improved at time of transfer. [facility] ED NOTE HNO ID: [id number] Author: Yuki Cruz RN Service: ? Author Type: Registered Nurse Type: ED Notes Filed: 06/20/2019 1:15 AM Note Text: Clean catch urine specimen obtained and sent. [facility] ED NOTE HNO ID: [id number] Author: Yuki Cruz RN Service: ? Author [...] time with getting transferred to another facility. [facility] ED NOTE HNO ID: [id number] Author: Yuki Mckenzie) MERA Cruz Service: ? Author Type: Registered Nurse Type: ED Notes Filed: 06/20/2019 3:28 AM Note Text: Patient stated Valium did not help. She continues to be in pain and upset. She wanted to speak with someone in charge and update on POC. Normal [facility] HISTORY PHYSICALon 9 HISTORY PHYSICAL HNO ID: [id number] Author: Talita Wesley RN Service: General Internal [...] tightness that is constant. Notices a decreased monotype caster strength and weakness in left hand. She [...] pressure, palpitations, leg swelling. Denies hx of [place]. GI: Denies nausea, vomiting, diarrhea, abdominal pain, [...] rotation 40/80% Decreased left C5-C7 sensation. Left monotype caster strength 2/5. Right monotype caster strength 5/5. UE DTR intact and equal. [...] tightness into left arm, weak left hand monotype caster strength, and worsening severity of numbness/tingling -Afebrile [...] Needs confirmed with patient pharmacy. Patient uses [facility] in [place], [place]. Patient provided #[phone]. Will call in am to confirm dose. Nicotine Abuse Assessment AND Plan: Smokes 1 1/2 PPD for 20 years. Smoking cessation advised. Nicotine patch ordered. Medication and Non-Pharmacologic VTE Prophylaxis/Anticoagulant s VTE Prophylaxis: VTE prophylaxis appropriate SIGNATURE: Talita Wesley APRN.CNP PATIENT NAME: Morales Lee DATE: June 20, 2019 TIME: 2:58 AM PAGER/CONTACT #: U # [phone] [facility] NURSING PROGon 06-20-2019 NURSING PROG HNO ID: [id number] Author: Austyn (Rn) MERA Berumen Service: Nursing Author Type: Registered Nurse Type: Nursing Progress Note Filed: 06/20/2019 3:10 PM Note Text: Nursing Progress Note Patient Name: Morales Lee Patient Location: [id number] -02 Daily Note:06/20/2019 -pt is upset regarding [...] note was completed by: AUSTYN BERUMEN RN [facility] NURSING PROG HNO ID: [id number] Author: Austyn Mckenzie) MERA Berumen Service: Nursing Author Type: Registered Nurse Type: Nursing Progress Note Filed: 06/20/2019 8:10 AM Note Text: Nursing Progress Note Patient Name: Morales Lee Patient Location: [id number] -02 Daily Note:06/20/2019 -assumed care of patient, pt is requesting her suboxone. We have to call to verify dosage. -MERA Acosta called pharmacy provided by night MARINE PIPEFITTER HELPER and the pharmacy does not open until 9am. We will call back to verify dose later. -Dr. Kwon called to speak with this RN, he will be in to see the patient later today. This note was completed by: AUSTYN BERUMEN RN [facility] NURSING PROG HNO ID: [id number] Author: Guadalupe Herbert RN Service: ? Author Type: Registered Nurse Type: Nursing Progress Note Filed: 06/20/2019 4:33 AM Note Text: Nursing Progress Note Patient Name: Morales Lee Patient Location: [id number] -02 Daily Note:AANDO x 3. C/O left [...] note was completed by: Guadalupe Herbert RN [facility] PROGRESSon 06-20-2019 PROGRESS HNO ID: [id number] Author: Sedrick Martin Service: General Internal Medicine [...] rales. Cor:RSR, no murmurs. 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 DATA: Diagnostic tests [...] VTE Prophylaxis/Anticoagulant s 06/20/19399 pneumatic compression stockings (ma,mt) 06/20/19399 activity - mobilize patient ([place], [place]) VTE Prophylaxis: appropriate SIGNATURE: Sedrick Martin MD PATIENT NAME: Morales Lee DATE: June 20, 2019 TIME: 10:41 AM PAGER: [facility] PROGRESS HNO ID: [id number] Author: Sedrick Martin Service: General Internal Medicine Author Type: Physician Type: Progress Notes Filed: 06/20/2019 8:25 AM Note Text: As per Pain Management Consult still pending, I was notified by Pain Management to resume the pt.' s home Suboxone dosage until pt. Seen later today. Normal [facility] Troponin Ton 06-20-2019 Troponin T.cardiac [Mass/Vol] ug/L Normal 0.000-0.[address] [place] [address] Comment on above: Performed By: #### T NT #### [place] [address] Troponin T.cardiac [Mass/Vol] ug/L Normal 0.000-0.[address] [place] [address] Comment on above: Performed By: #### T NT #### [place] [phone] Basic Metabolic Panlon 06-19 Anion gap [Moles/Vol] 14 mmol/L Normal 9-18 [facility] Calcium [Mass/Vol] 10.3 mg/dL High 8.5-10.2 [facility] Chloride [Moles/Vol] 96 mmol/L Low 97-105 [facility] CO2 [Moles/Vol] 29 mmol/L Normal 22-30 [facility] Creatinine [Mass/Vol] 0.59 mg/dL Normal 0.58-0.96 [facility] eGFR- Amer. >[address] [facility] GFR/1.73 sq M predicted among non-blacks MDRD (S/P/Bld) [Vol rate/Area] mL/min/{1.73_m2} Normal [facility] Comment on above: Result Comment: eGFR [...] Glucose [Mass/Vol] 114 mg/dL High 74-99 [facility] Comment on above: Result Comment: The [place] [employer] (ADA) provides guidance for cutoff [...] Standards of Medical Care in Diabetes 2016, [place] [employer]. Diabetes Care. 2016.39(Suppl 1). Potassium [Moles/Vol] 3.7 mmol/L Normal 3.7-5.1 [facility] [facility] Sodium [Moles/Vol] 139 mmol/L Normal 136-144 [facility] Urea nitrogen [Mass/Vol] 7 mg/dL Normal 7-21 [facility] CBC and Differentialon 06-19 Abs Baso 0.09 k/uL Normal <0.11 [facility] Abs Centre 0.61 k/uL Normal <0.87 [facility] Abs Neut 7.56 k/uL High 1.45-7.50 [facility] Absolute nRBC <0.01 Normal <0.01 [facility] Basophils/100 WBC (Bld) 0.7 % Normal [facility] DTYPE Auto Diff Normal [facility] Eosinophils (Bld) [#/Vol] 0.25 10*3/uL Normal <0.46 [facility] Eosinophils/100 WBC (Bld) 1.9 % Normal [facility] Erythrocyte distribution width (RBC) [Ratio] 12.0 % Normal 11.5-15.0 [facility] Hematocrit (Bld) [Volume fraction] 52.6 % High 36.0-46.0 [facility] Hemoglobin (Bld) [Mass/Vol] 18.0 g/dL High 11.5-15.5 [facility] Lymphocytes (Bld) [#/Vol] 4.67 10*3/uL High 1.00-4.00 [facility] Lymphocytes/100 WBC (Bld) 35.4 % Normal [facility] MCH (RBC) [Entitic mass] 30.0 pG Normal 26.0-34.0 [facility] MCHC (RBC) [Mass/Vol] 34.2 g/dL Normal 30.5-36.0 [facility] MCV (RBC) [Entitic vol] 87.7 fL Normal 80.0-100.0 [facility] Monocytes/100 WBC (Bld) 4.6 % Normal [facility] Neutrophils/100 WBC (Bld) 57.4 % Normal [facility] NRBCs 0.0 /[address] [facility] Platelet mean volume (Bld) [Entitic vol] 10.1 fL Normal 9.0-12.7 [facility] Platelets (Bld) [#/Vol] 370 10*3/uL Normal 150-400 [facility] RBC (Bld) [#/Vol] 6.00 10*6/uL High 3.90-5.20 [facility] WBC (Bld) [#/Vol] 13.18 10*3/uL High 3.70-11.00 [facility] ED NOTEon 06-19-2019 ED NOTE HNO ID: [id number] Author: Yuki WilksRn) MERA Cruz Service: ? Author Type: Registered Nurse Type: ED Notes Filed: 06/20/2019 3:27 AM Note Text: Patient has requested valium, she says that she takes it at home. Biago updated. Normal [facility] ED NOTE HNO ID: [id number] Author: Yuki WilksRn) MERA Cruz Service: ? Author Type: Registered Nurse Type: ED Notes Filed: 06/20/2019 3:27 AM Note Text: Patient is complaining of nausea. She is requesting her saboxon as well and Biago was updated on request. [facility] ED NOTE HNO ID: [id number] Author: Yuki WilksRn) MERA Cruz Service: ? Author Type: Registered Nurse Type: ED Notes Filed: 06/19/2019 7:54 PM Note Text: Said that after her surgery in 2016 her left pinky and ring finger are numb but she said lately her other fingers on that hand have been getting numb as well. [facility] ED NOTE HNO ID: [id number] Author: Vanessa WilksRn) MERA Ruiz Service: ? Author Type: Registered Nurse Type: ED Notes Filed: 06/19/2019 6:48 PM Note Text: Patient has chronic neck pain for three years. Saw spine doctor 06/12/2019 for the same had x rays. Denies any new injury. States pain goes into left arm. Arrived via wheelchair [facility] ED PROV NOTEon 06-19-2019 ED PROV NOTE HNO ID: [id number] Author: Tracy Arredondo Service: Emergency Medicine Author [...] light touch over bilateral lower extremities. 3/5 monotype caster, bicep, tricep strength over LUE. Decreased sensation to light touch over left upper extremity in median, radial, and ulnar nerve distribution. 5/5 monotype caster, bicep, tricep strength of R UE. Skin: [...] neurosurgical consult as previous notes from her technical service specialist recommend obtaining EMG and possible further [...] neurosurgical consult she warrants transfer to [facility] for further management of her condition. We have low suspicion for stroke at this time as pain appears to be radicular in nature and she has had worsening progression of her symptoms with documented notes from spine (Dr. Álvarez) suggesting this worsening pain and numbness. The LITIGATION SECRETARY, Talita, at [facility] recommended we obtain a CT brain and she must rule out any acute intercranial abnormality that may be contributing to the patient's symptoms. Therefore, this study was ordered and will be followed up by the night team especially if there is any acute intracranial abnormality. As long as there is no acute intracranial abnormality she will be transferred to [facility] for further evaluation and management of her condition. Patient voiced understanding was in agreement with the above plan. This patient's case was discussed with Dr. Arredondo who personally evaluated the patient supervised her care. The patient was TRANSFERRED to: [facility] Condition at time of disposition: stable SIGNATURE: NORMA Montgomery (Pa) 06/20/19 0026 Attending Note I have personally performed a face to face assessment of the patient and have reviewed the PA/COOKIE MIXER HELPER note. My schofield findings include: History is [...] of 5 strength left upper extremities in monotype caster strength as well as biceps and triceps [...] worsening neck pain we will place her [facility] observation for cardiac rule out as well [...] and requested by the observation provider at [facility] as they were concerned about stroke. However I doubt this and did not feel this was necessary however it is currently pending and patient will be transferred to [facility] if this is unremarkable. Signature: Tracy Arredondo DO Date: 06/20/2019 Time: 12:26 AM Tracy Arredondo 06/20/[address] [facility] Magnesiumon 06-19-2019 Magnesium [Mass/Vol] 2.0 mg/dL Normal 1.7-2.3 [facility] Troponin Ton 06-19-2019 Troponin T.cardiac [Mass/Vol] ug/L Normal 0.000-0.[address] [facility] CNOVon 06-12-2019 CNOV Office Visit (SPNMMN ) ----- MORALES LEE ([id number]) 1975 F Date Time Provider Department 06/12/19 [...] file Gets together: Not on file Attends mandaeism service: Not on file Active member of [...] [Z98.890] Order(s):PATIENT PLACED ON SPINE CARE PATH [2479128] Order #: [id number]: 1 XR SCOLIOSIS PA STAND/LAT 2V [[id number]] Order #: [id number] FUTURE EMG(NEURO/NI) [[id number]] Order #: [id number]: 1 FUTURE CONSULT TO SPINE SURGERY [[id number]] Order #: [id number]: 1 FUTURE Prescriptions as of 06/12/2019 Sig: [...] by DIXIE TEE MD on 06/12/19 [facility] PROGRESSon 06-12-2019 PROGRESS HNO ID: [id number] Author: Robert Mittal (Rt) Service: Radiology Author Type: Operations Associate Type: Progress Notes Filed: 06/12/2019 10:10 AM [...] RT Daxa June 12, 2019 10:09 AM [facility] PROGRESS HNO ID: [id number] Author: Dixie Tee Service: ? Author Type: [...] file Gets together: Not on file Attends mandaeism service: Not on file Active member of [...] healed incisions. Chest: symmetric expansion Data Review: [facility] records reviewed Care everywhere Lumbar CT scan-02/2019-report [...] June 12, 2019 TIME: 8:12 AM Normal [facility] XR SCOLIOSIS 2V PA STAND/LAT [...] changes and multilevel compression deformities as described. Ship'S Cook: PSCB Transcribe Date/Time: Jun 12 2019 4:36P Dictated by : CAROLINA MOJICA MD This examination was interpreted and the report reviewed and electronically signed by: CAROLINA MOJICA MD on Jun 12 2019 4:39PM EST [id number] Normal [facility] PROGRESSon 05-14-2019 PROGRESS HNO ID: [id number] Author: Laury Levin Service: ? Author Type: Physician Offset Plate Maker Type: Progress Notes Filed: 05/14/2019 1:26 PM [...] to rule out cubital tunnel syndrome. Normal [facility] PROGRESSon 05-09-2019 PROGRESS HNO ID: [id number] Author: Kathia Kelly Service: ? Author Type: ? Type: Progress Notes Filed: 05/14/2019 1:26 PM Note Text: Patient name: Morales Lee Are you being referred by a [facility] Provider or Pain Management Provider at [facility]? No If answer is YES please schedule directly with surgeon, triage does not need to be completed. Is this a self-referral No If not, who is the Referring Provider: Dr. Hendricks/ [facility] MRI/CT/myelogram within 12 months: Yes If No , please refer to medical spine or PCP to complete above imaging, triage does not need to be completed Imaging viewable in Epic: No If not, please provide [phone] to fax in imaging reports for review. [...] will fax imaging report and op notes. [phone] Normal [facility] CT-CT C-SPINE WO CON IMPORTo n 02-13-2019 CT-CT C-SPINE WO CON IMPORT Images were obtained outside of [facility] [id number] Normal [facility] CT-CT L-SPINE WO CON IMPORTo n 02-13-2019 CT-CT L-SPINE WO CON IMPORT Images were obtained outside of [facility] [id number] Normal [facility] Vital Signs Date Time Vital Sign Value Performing Clinician Facility 05-14-2024 09:48-0400 Body height 157.5 cm Genny Orosco MARINE PIPEFITTER HELPER Work Phone: [facility] 05-14-2024 09:48-0400 Body mass index (BMI) [Ratio] 34.75 kg/m2 Genny Orosco MARINE PIPEFITTER HELPER Work Phone: [facility] 05-14-2024 09:48-0400 Body temperature 96.69 [degF] Genny Orosco MARINE PIPEFITTER HELPER Work Phone: [facility] 05-14-2024 09:48-0400 Body weight 86.18 kg Genny Arizak MARINE PIPEFITTER HELPER Work Phone: [facility] 05-14-2024 09:48-0400 Diastolic blood pressure 54 mm[Hg] Genny Barrosopatrick MARINE PIPEFITTER HELPER Work Phone: [facility] 05-14-2024 09:48-0400 Heart rate 72 /min Genny Cliftontrick MARINE PIPEFITTER HELPER Work Phone: [facility] 05-14-2024 09:48-0400 Systolic blood pressure 104 mm[Hg] Genny Cliftontrick MARINE PIPEFITTER HELPER Work Phone: [facility] 06-07-2022 12:48-0400 Diastolic blood pressure 83 mm[Hg] No Pcp Required [facility] 06-07-2022 12:48-0400 Heart rate 67 /min No Pcp Required [facility] 06-07-2022 12:48-0400 Respiratory rate 16 /min No Pcp Required [facility] 06-07-2022 12:48-0400 SaO2% (BldA) [Mass fraction] 96 % No Pcp Required [facility] 06-07-2022 12:48-0400 Systolic blood pressure 148 mm[Hg] No Pcp Required [facility] 01-06-2022 10:51-0400 Blood Pressure Location NATALIA MANNING [facility] 01-06-2022 10:51-0400 Diastolic blood pressure 86 mm[Hg] NATALIA MANNING [facility] 01-06-2022 10:51-0400 Heart rate 86 /min NATALIA MANNING [facility] 01-06-2022 10:51-0400 Respiratory rate 16 /min NATALIA MANNING [facility] 01-06-2022 10:51-0400 Systolic blood pressure 132 mm[Hg] NATALIA MANNING [facility] 09-08-2021 14:15-0500 Body height 149.86 cm No PCP None MG-Neurosurgery- Ah uja Work Phone: 09-08-2021 14:15-0500 Body mass index (BMI) [Ratio] 36.96 kg/m2 No PCP None IH-Ociksdomcxln-Aj uja Work Phone: 09-08-2021 14:15-0500 Body surface area Derived from formula 1.78 m2 No PCP None ZC-Lbcigtkdixau-Bu uja Work Phone: 09-08-2021 14:15-0500 Body weight 83.01 kg No PCP None [facility]-Neurosurgery- Ah uja Work Phone: 09-08-2021 14:15-0500 Diastolic blood pressure 68 mm[Hg] No PCP None PQ-Vyypykxdvqlj-Bn uja Work Phone: 09-08-2021 14:15-0500 Heart rate 96 /min No PCP None [facility]-Neurosurgery- Ah uja Work Phone: 09-08-2021 14:15-0500 Respiratory rate 16 /min No PCP None [facility]-Neurosurgery -Ah uja Work Phone: 09-08-2021 14:15-0500 Systolic blood pressure 115 mm[Hg] No PCP None HP-Koludpnybnot-Gr uja Work Phone: 09-08-2021 14:15-0500 0 1 No PCP None MG-Neurosurgery- Ah uja Work Phone: Comment on above: [facility] 01-01-2021 16:46-0400 Heart rate 111 /min No Pcp Required [facility] 01-01-2021 16:46-0400 SaO2% (BldA) [Mass fraction] 95 % No Pcp Required [facility] 01-01-2021 14:00-0400 Body temperature 96.8 [degF] No Pcp Required [facility] 01-01-2021 14:00-0400 Diastolic blood pressure 77 mm[Hg] No Pcp Required [facility] 01-01-2021 14:00-0400 Respiratory rate 18 /min No Pcp Required [facility] 01-01-2021 14:00-0400 Systolic blood pressure 114 mm[Hg] No Pcp Required [facility] Encounters Encounter Date Encounter Type [...] 05-14-2024 End: 05-14-2024 Bamboo flowsheet Genny Orosco MARINE PIPEFITTER HELPER Work Phone: [facility] Start: 05-14-2024 End: 05-22-2024 Clinisync Result Encounter Genny Orosco MARINE PIPEFITTER HELPER Work Phone: [facility] External [facility] Unsolicited Start: 05-14-2024 End: 05-22-2024 Clinisync Result Encounter Genny Orosco MARINE PIPEFITTER HELPER Work Phone: [facility] External Department Unsolicited Start: 05-14-2024 End: 05-14-2024 ambulatory GENNY OROSCO Not Available Start: 05-14-2024 End: 05-14-2024 Office outpatient visit 15 minutes Genny Orosco MARINE PIPEFITTER HELPER Work Phone: [facility] Comment on [...] 03-27-2024 End: 03-31-2024 Pre-admission assessment LEX FREDERICK [facility] Start: 03-26-2024 End: 04-07-2024 Pre-admission assessment LEX FREDERICK [facility] Start: 02-13-2024 End: 02-13-2024 ambulatory SHAIKH MICAH [...] encounter procedure Danya Bingham [facility] Start: 11-22-2022 ambulatory MENDOSA H FAWWAD Facilit y:H1 Start: 11-09-2022 End: 11-09-[address] DEVANTE ELIZONDO . Facility:[facility] Start: 10-15-2022 End: 10-15-2022 ambulatory KYRA Rojas Facility:[facility] Start: 09-24-2022 End: 09-24-2022 Patient encounter procedure Danya Bingham [facility] Start: 09-01-2022 Encounter for preprocedural laboratory examination DANYA BINGHAM . [facility] Start: 08-25-2022 End: 08-25-2022 ambulatory MENDOSA H FAWWAD Facility:[facility]1 Start: 08-24-2022 End: 08-25-2022 ambulatory MENDOSA H FAWWAD Facility:[facility] Start: 08-24-2022 End: 08-25-2022 Encounter for preprocedural laboratory examination MENDOSA H FAWWAD Facility:[facility]1 Start: 08-21-2022 ambulatory MENDOSA H FAWWAD Facilit y:H1 Start: 07-16-2022 End: 07-16-2022 Patient encounter procedure Danya Bingham [facility] Start: 06-06-2022 End: 06-07-2022 Emergency department patient visit Yony Aguirre [facility] Adult ED Blue 45 Start: 05-31-2022 End: 05-31-[address] ALEXANDRU SORIA . Facility:[facility]1 Start: 05-19-2022 End: 05-19-2022 Off-Site Danya Bingham [facility] Start: 05-07-2022 End: 05-07-2022 ambulatory SHAIKH [...] 02-04-2022 Off-Site Danya Bingham [facility] Start: 01-11-2022 Chart Update No PCP None MG-Neurosu [facility] [place] Work Phone: Start: 01-11-2022 End: 01-11-2022 Patient encounter procedure Danya Bingham [facility] Start: 01-07-2022 AUDIT No PCP None MG-Neurosu [facility]200 Work Phone: Start: 01-06-2022 End: 01-06-2022 Patient encounter procedure NATALIA MANNING [facility] Start: 10-13-2021 AUDIT No PCP None MG-Neurosu rgery-Miguel Work Phone: Start: 09-29-2021 AUDIT No PCP None MG-Gastroe nterology-B [facility] Work Phone: Start: 09-15-2021 End: 10-02-2021 Evaluation and management of inpatient Dr. LEX FREDERICK Facility:[facility] Start: 09-09-2021 AUDIT No PCP None MG-Neurosu rgery-Miguel Work Phone: Start: 09-08-2021 Office outpatient vi sit 40 minutes No PCP None ME-Rzdoeqqflbty-Jemlf Work Phone: Start: 05-05-2021 Postop follow up vis it related to original px No PCP None KB-Eufodnluzhcd-TIKPN Work Phone: Start: 12-26-2020 End: 01-01-2021 Evaluation and management of inpatient Lex Frederick [facility] [id number] Preoperative state No PCP None MG-Neuros urgery-[facility] Work Phone: Procedures Date Procedure Procedure Detail Performing Clinician Start: 08-26-2024 BLOOD CULTURE 1 Generic External Data Provider Start: 08-26-2024 BLOOD CULTURE 2 Generic External Data Provider Start: 07-12-2024 Bacteria identified in Urine by Culture Generic External Data Provider Start: 05-18-2024 Drug test prsmv read direct optical obs pr date Genny Orosco MARINE PIPEFITTER HELPER Work Phone: Start: 05-14-2024 COMPLIANCE DRUG ANAL YSIS, UR Genny Munozzpatrick MARINE PIPEFITTER HELPER Work Phone: Start: 09-21-[address] EFRAIN FREDERICK Comment on above: Performed By: #### A FPA3 #### [facility] [address] [place] [address] Start: 09-21-[address] EFRAIN FREDERICK Comment on above: Order Comment: VENECIA ESPINO, 09/21/2021 05:08TEST TYPE + SCREEN WAS CANCELLED, 09/21/2021 05:06 NO PHLEB ID ON TUBE. Result Comment: CALL ED RN AFSANEH ESPINO, 09/21/2021 05:08 Performed By: #### A FPA3 #### [facility] [address] [place] [address] Start: 09-17-[address] EFRAIN FREDERICK Comment on above: Performed By: #### T +S #### [facility] [address] [place] [address] Start: 12-27-2020 End: 12-28-2020 Release Blood Product-Packed [...] Vaccines (2 - Td or Tdap) [facility] Start: 06-13-2024 End: 06-13-2024 Patient encounter procedure 06/13/2024 9:20 AM EDT Office Visit [facility] [address] [place] [address] Lian Greer, JUNIOR ELECTRICAL ENGINEER-LITIGATION SECRETARY [address] [place] [address] [facility] Start: 05-14-2024 End: 05-14-2024 Patient encounter procedure 05/14/2024 9:30 AM EDT Office Visit [facility] [address] [place] [id number] Genny Orosco NP [address] [place] [address] [facility] Start: 05-06-2024 Influenza vaccination [facility] Start: 10-17-2023 End: 10-17-2023 Patient encounter procedure 10/17/2023 6:30 PM EST Office Visit [facility] [address] [place] [id number] Shaikh Obrien MD [address] [place] [address] [facility] Start: 2023 Administration of varicella zoster vaccine Zoster (Shingles) Vaccine (1 of 2) [facility] Start: 05-06-2023 Influenza vaccination Influenza Vacc ine (#1) [facility] Start: 11-03-2021 POV, Provider: Lex Frederick, Status: Pen, Time: 2:00 PM POV, Provider: Lex Frederick, Status: Pen, Time: 2:00 PM MG-Ftqycxojtfkcchev-E [facility] Work Phone: Start: 10-07-2021 Admission to [facility] RNVISIT, Provider: NURSE VISIT ASHLEY 5TH,MGNEUROSURGERY, Status: Pen, Time: 10:15 AM DH-Ohomhasgnigxgaee-D [facility] Work Phone: Start: 09-18-2021 [facility] Provider: Lex Frederick, Status: Pen, Time: 8:00 AM [facility], Provider: Lex Frederick, Status: Pen, Time: 8:00 AM HE-Bvftewhrqbgq-Knmqa Work Phone: Start: 01-08-2021 Patient encounter procedure Neurosurgery Miguel Start: 12-31-2020 End: 01-01-2022 [facility] Comment on above: please place at beds geraldine for drain removal Start: 12-26-2020 End: 12-27-2021 Naloxone Injectable 0.4 mg IntraVenous Push Once ; (NARCAN)DOSE = 0.2 mg IntraVenous Push Once, PRN patient is unarousable, and respiratory rate lessClinician Notes: 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 immediately Start: 2013 Screening for malign ant neoplasm of breast Mammogram [facility] Start: 2003 Screening for malign ant neoplasm of cervix [facility] Start: 1994 Screening for malign ant neoplasm of cervix Pap Smear [facility] Start: 1991 Adult BMI Screening Adult BMI Screen ing [facility] Start: 1985 Depression Screening Depression Scre ening [facility] Start: 1985 Tobacco Screening Tobacco Screening [facility] Start: 1973 Screening for malign ant neoplasm of colon [facility] Bacteria identified in Urine by Culture URINE CULTURE, ROUTINE Lab Routine 07/12/2024 2:30 PM [facility] BLOOD CULTURE 1 BLOOD CULTURE 1 Lab Routine 08/26/2024 8:29 AM [facility] BLOOD CULTURE 2 BLOOD CULTURE 2 Lab Routine 08/26/2024 8:25 AM [facility] Immunizations Immunization Date Immunization Notes Care Provider Delfino chu 02-22-2020 tetanus toxoid, redu luis diphtheria toxoid, and acellular pertussis vaccine, adsorbed Danya Bingham [facility] 12-05-2018 hepatitis A vaccine, adult dosage Danya Lujacque [facility] Payers Date Payer Category Payer [facility] [id number] 2012 Unknown 1975 Unknown [id number] [id number] .356 1973 Unknown [id number] 2.16.840.1.948913.3.579.2 .356 1973 Unknown [id number] 2.16.840.1.317979.3.579.2 .593 1973 Unknown [id number] 2.16.840.1.099861.3.579.2 .593 1973 Unknown [id number] 2.16.840.1.335198.3.579.2 .593 1973 Unknown [id number] 2.16.840.1.465598.3.579.2 .593 1973 Unknown [id number] 2.16.840.1.342592.3.579.2 .593 1973 Unknown [id number] 2.16.840.1.655641.3.579.2 .593 1973 Unknown [id number] 2.16.840.1.943583.3.579.2 .593 1973 Unknown [id number] 2.16.840.1.894929.3.579.2 .593 1973 Unknown [id number] 2.16.840.1.878999.3.579.2 .593 1973 Unknown [id number] 2.16.840.1.583932.3.579.2 .593 1973 Unknown [id number] 2.16.840.1.952142.3.579.2 .593 1973 Unknown [id number] 2.16.840.1.793079.3.579.2 .593 1973 Unknown [id number] 2.16.840.1.770889.3.579.2 .593 1973 Unknown [id number] 2.16.840.1.643079.3.579.2 .593 1973 Unknown [id number] 2.16.840.1.369609.3.579.2 .593 1973 Unknown [id number] 2.16.840.1.983360.3.579.2 .593 1973 Unknown [id number] 2.16.840.1.897268.3.579.2 .593 1973 Unknown [id number] 2.16.840.1.921591.3.579.2 .1046 1973 Unknown [id number] 2.16.840.1.073620.3.579.2 .727 1973 Unknown [id number] 2.16.840.1.914614.3.579.2 .1259 1973 Unknown [id number] 2.16.840.1.020864.3.579.2 .1259 1973 Unknown [id number] 2.16.840.1.815990.3.579.2 .1259 1959 Unknown [id number] Social History Date Type Detail Facility [facility] Tobacco smoking consumption unknown [facility] Start: 08-01-2023 End: 05-14-2024 History of drug use History of drug use YS-Fvyizsxwlzpy-GDFN C Work Phone: Start: 01-05-2016 End: 02-13-2024 Tobacco smoking status Smokes tobacco daily (finding) [facility] Comment on above: 1ppd 1ppd Start: 08-08-2023 End: 05-14-2024 Sex Assigned At Female [facility] History of tobacco use Cigarette Smoker N [facility] Start: 08-08-2023 End: 05-14-2024 Alcohol intake Lifetime non-drinker (finding) [facility] Start: 1975 Sex Assigned At Not on file N [facility] Childcare Unknown [facility] [...] 11-26-2022 Functional Status N/A [facility] 07-16-2022 Functional Status N/A [facility] Functional observable [facility] [place] Mental Status Date Assessment Result Facility 12-29-2020 Cognitive functi ons [id number] [facility] Clinical Notes 12-26-2020 to 06-08-2024 Telephone Encounter - Kathrine Patel RN - 06/08/2024 3:24 PM EDTTelephone Encounter - Kathrine Patel RN - 06/08/2024 3:24 PM EDTTelephone Encounter - Kathrine Patel RN - 06/08/2024 3:24 PM EDT Note Date & Type Note Facility 06-08-2024 Miscellaneous Notes ----- Message from [employer] | [employer]remy sent at 06/08/2024 3:14 PM EDT ----- Contract: [employer] L[employer] Patch from [employer], not sure if can use Contract: [employer] [facility] Patient is not a current patient of this office informed that we cannnot give advice without this. Will call her insurance company. No triage done Reason for Disposition Caller has cancelled the call before the first contact Protocols used: No Contact or Duplicate Contact Call-A-AH documented in this encounter [facility] 06-08-2024 Telephone encounter Note ----- Message from [employer] sent at 06/08/2024 3:14 PM EDT ----- Contract: [facility] Lidoderm Patch from [facility], not sure if can use [facility] 06-08-2024 Telephone encounter Note Contract: [facility] Patient is not a current patient of this office informed that sameer desir give advice without this. Will call her insurance company. No triage done [facility] 06-08-2024 Telephone encounter Note Reason for Disposition Caller has cancelled the call before the first contact Protocols used: No Contact or Duplicate Contact Call-A-AH [facility] 05-15-2024 History of Presen t illness [...] physician appointments and anticipated to need it long-term and lifelong Images from the original note [...] States her daughter in law is an BINDING NICKER and helps care for her. When I discussed with patient her chronic neurological issues including spinal cord compression, stenosis and myelopathies, pt states she is no longer seeing neuro because after what the [place] did to me, I am not seeing [...] physician appointments and anticipated to need it long-term and lifelong Psychophysiological insomnia Encounter for medication management Relevant Orders Rapid drug screen, urine Pressure ulcer, buttock Patient is wheelchair bound with limited mobility due to chronic LBP, b/l LE weakness. Has associated fecal and urinary incontinence. Relevant Orders Ambulatory referral to Wound Clinic Rapid drug screen, urine Caroline documented in this encounter [facility] 04-24-2024 Telephone encounter Note Patient would like a refill of her Valium. Was from [employer] but did not transfer to [employer]. [facility] 04-24-2024 Miscellaneous Notes Patient would like a refill of her Valium. Was from [employer] but did not transfer to [employer]. documented in this encounter [facility] 11-26-2022 Hospital Discharg e instructions Patient [...] 10/01/2017 Document Revised: 12/14/2019 Document Reviewed: 10/01/2017 [employer] Patient Education 2019 Glam .fr [place]. Follow Up Care 10/14/2022 11:11:52 With:Zachery HARKINS, CAROLEE Anderson, URO Address: When: Unknown [facility] 09-23-2022 Hospital Discharg e instructions Patient Education [...] including vitamins, herbs, eye drops, creams, and tpnc-byr-lwllvru medicines. Any problems you or family members [...] provider tells you to take them. Taking mvnx-lrq-kfxwamd medicines, vitamins, herbs, and supplements. General instructions [...] Document Reviewed: 10/08/2019 Elsevier Patient Education 2020 Glam .fr [place]. Follow Up Care 08/31/2022 10:49:10 With:Zachery HARKINS, CAROLEE Anderson, URO Address: When: Unknown [facility] 07-16-2022 Hospital Discharg e instructions [...] nerve stimulation). For women, using a medical billing clerk to prevent urine leaks. This is a [...] right after experiencing incontinence. General instructions Take gjcp-ctz-poqdsbr and prescription medicines only as told by [...] 09/29/2005 Document Revised: 09/01/2018 Document Reviewed: 12/01/2017 [employer] Patient Education 2020 [employer] Follow Up Care 06/15/2022 11:30:52 With:Zachery HARKINS, CAROLEE Anderson, URO Address: When: Unknown [facility] 02-04-2022 Hospital Discharg e instructions Patient Education [...] nerve stimulation). For women, using a medical billing clerk to prevent urine leaks. This is a [...] right after experiencing incontinence. General instructions Take cyun-goz-ljilrjj and prescription medicines only as told by [...] 09/29/2005 Document Revised: 09/01/2018 Document Reviewed: 12/01/2017 [employer] Patient Education 2020 [employer] 02/04/2022 16:23:10 Calorie Counting for Weight [...] 08/22/2006 Document Revised: 05/11/2019 Document Reviewed: 07/22/2017 [employer] Patient Education 2020 Glam .fr [place]. Follow Up Care 02/04/2022 13:28:46 With:Zachery HARKINS, CAROLEE Anderson, URO Address: When: Unknown [facility] 01-11-2022 Evaluation + Plan note Extrac [...] and Plan Diagnosis Bowel and bladder incontinence (CKL89-SU R32, Billing Diagnosis, Medical). Incontinence without sensory awareness (YHG75-GH N39.42, Working, Medical). Diagnosis Bowel and bladder incontinence (USN06-PW R32, Billing Diagnosis, Medical). Incontinence without sensory awareness (ATH14-NI N39.42, Working, Medical). Addendum by Danya Bingham MD on January 11, 2022 10:23 EDT Post procedure diagnosis: Intrinsic sphincter deficiency, acontractile detrusor [facility]05-09-2022 Hospital Discharge instructions Patient Education 01/11/2022 10:22:42 [...] Up Care 01/06/2022 11:41:34 With:Danya Bingham Address: [facility] [address] [address] [phone] Business (1) When: Unknown Comments:Call for followup appointment in 2-3 weeks With:Danya Bingham Address:Unknown When: Unknown [facility]05-04-2022 Hospital Discharge instructions Patient Education 01/06/2022 10:27:52 [...] clinics. Check with your local health department. [facility], where you would pay only what you can afford. To find one near you, check this website: [email or web address]-[email or web address]-[email or web address]/ [facility]. These are part of a program [...] information Learn more about cervical cancer from: [employer]: www.acog.org/Patients/FAQs/Cervical-Cancer [employer]: www.cancer.org/cancer/cervicalcancer/ U.S. Centers for Disease [...] 09/05/2016 Document Revised: 09/23/2018 Document Reviewed: 04/19/2017 [employer] Patient Education 2020 Glam .fr [place]. Follow Up Care 11/20/2021 10:16:51 With:NIGEL GREEN, NATALIA Santillan, URL Address: [address] 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 Lex Frederick Resident/Fellow/Other Offset Plate Maker: Chery Awan Procedure: posterior L4-L5 decompression posterior [...] Completion Last Updated: 22-Sep-2021 10:54 by Lex Frederick)[facility]01-17-2022 NoteHistory & Physical Reviewed: /Lactating: [...] the note. I personally evaluated the patient [id number] Electronic Signatures: Lex Frederick) (Signed 21-Sep-2021 11:50) Authored: Note Completion Co-Signer: History & Physical Reviewed, ERAS, Consent, Note Completion Jaya Mosquera (Resident)) (Signed 21-Sep-2021 02:51) Authored: History & Physical Reviewed, ERAS, Consent, Note Completion Last Updated: 21-Sep-2021 11:50 by Lex Frederick () References: 1. Data Referenced From MRI Safety Screen v2 19-Sep-2021 19:00[facility]01-15-2022 NoteRehab: Info: Mode of Treatmentoccupational [...] appropriate. 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 Exploration of spinal [...] performed and the images transferred to the [employer] system for use in intraoperative image-guided computer-assisted [...] using the torque dri (more content not included)...[facility]01-14-2022 NoteThis report has been cancelled.[facility]01-14-2022 NoteHistory & Physical Reviewed: /Lactating: [...] the note. I personally evaluated the patient [id number] Electronic Signatures: Fidel Maciel (Resident)) (Signed 17-Sep-2021 22:49) Authored: History & Physical Reviewed, ERAS, Consent, Note Completion Lex Frederick) (Signed 19-Sep-2021 10:17) Authored: Note Completion Co-Signer: History & Physical Reviewed, ERAS, Consent, Note Completion Last Updated: 19-Sep-2021 10:17 by Lex Frederick) References: 1. Data Referenced From MRI Safety Screen v2 17-Sep-2021 11:28[facility]01-11-2022 NoteReferral Information: Consult requested by [...] be able to m (more content not included)...[facility]01-11-2022 NoteHistory of Present Illness: /Lactating: [...] the note. I personally evaluated the patient [id number] Electronic Signatures: Fidel Maciel (Resident)) (Signed 15-Sep-2021 [...] Plan Last Updated: 16-Sep-2021 10:20 by Lex Frederick)[facility]04-23-2021 History of Present illness Narrative* I just had the pleasure of seeing Mrs. Jesus villarreal in the Neurosurgery Spine Clinic at the [facility]. She is a very pleasant 46-year-old female, [...] Ms. LEE care. * Lex Frederick MD, [facility], FA[facility] * Director - Minimally Invasive Spine Surgery * [facility] * Melt Supervisor of Neurological Surgery * [facility] [employer] * [place], [place] * Some of this note was completed using [employer] voice recognition technology and sometimes the software misinterprets words. This may include unintended errors with respect to translation of words, typographical errors or grammar errors which may not have been identified prior to finalization of the chart note. Please take this into account when reading this note. [employer] Work Phone: [phone] Reason for referral (narrative)* Reason for Referral: Patient s/p posterior bilateral L1 transpedicular decompression, posterior T7-T8, T8-T9, T9-T10, T0-T11, T11-T12, T12-L1 hutton hernandez osteotomies, Posterior T5-L4 instrumentation and fusion on 12/26 [facility] Future Appointments Appointment Date:01/07/2022 11:00:00 AM Scheduled Provider: Location:[facility] Appointment Type:Urology CALL PAT FT Appointment Date:01/11/2022 08:00:00 AM Scheduled Provider: Location:[facility] Appointment Type:Urology FT Appointment Date:01/11/2022 09:00:00 AM Scheduled Provider: Location:[facility] Appointment Type:Urology FT [facility] + [facility] Evaluation + Plan note Future Appointments Appointment Date:04/06/2024 12:00:00 PM Scheduled Provider: Location:.MRI Appointment Type:MRI Spine (FT) Appointment Date:04/06/2024 12:00:00 PM Scheduled Provider: Location:[facility] Appointment Type:Surgery FT Future Scheduled Tests Radiology* MRI Spine Cervical w/o Contrast 04/06/24 * MRI Spine Lumbar w/o Contrast 04/06/24 * MRI Spine Thoracic w/o Contrast 04/06/24 [facility] Evaluation note* Neurological: rtqbpgb3sga 5/5 except hg/io4+ble 5/5incision cdiHead/Neck: Ox3, awake, alertBUE 5 prox, HG/IO4+BLE HF/KE/DF/PF/EHL 5 [facility]* Constitutional: in no acute distressSkin: Well perfusedEyes: OU 3RHead/Neck: atraumatic, normocephal icRespiratory/Thorax: airway intact, good chest expansionCardiovascular: normal rate, regular rhythmGastrointestinal: non-tenderNeurological: NAD, A&Bv8Ijmhfvi Nerves II-XII: PERRL, EOMI, Face symmetric, Facial SILT, Palate/Tongue midline and symmetric, shoulder shrugs symmetric, hearing intact to finger rubs bilaterallyMotor: RUE D5, B5, T5, HG5, IO5LUE D5, B5, T5, HG5, IO5RLE HF 4+, KE4+, PF4-, DF3LLE HF 4+, KE4+, PF3, DF4-Sensation: SILT throughout all extremitiesPsychological: mood appropriate [facility]* Diagnosis Chronic low back pain, unspecified back pain laterality, unspecified whether sciatica present- Primary Nausea in adult documented in this encounter [facility] Healthcare[facility]* Diagnosis Intrinsic sphincter deficiency (ISD)- Primary Psychophysiological insomnia Persistent disorder of initiating or maintaining sleep Encounter for medication management Dependence on wheelchair Pressure injury of skin of buttock, unspecified injury stage, unspecified laterality documented in this encounter [facility] HealthcareEvaluation note* Diagnosis Chronic low back pain, unspecified back pain laterality, unspecified whether sciatica present [facility] Narrative No data available for this section [facility] Discharge instructions* Activity:activity as tolerated. May [...] Certification:Home Care Services Needed: yesSkilled Disciplines Ordered: RN/STRIP MACHINE OPERATOR, PT, OTFace to Face Encounter Completed: yesDate of Encounter: [id number] Necessity for Homecare (based on clinical findings): [...] washing dishes, & loading the dryer or decal applier until cleared by MD. * Wound Care:Inspect [...] - Neurosurgeon:Physician/Dept/Service: NeurosurgeonDr Josephuled Date/Time: 08-Jan-2021 10:40Location: [facility] [address], [place]Phone Number: [phone]: 2 week postop/wound check visit; Bring Insurance Card and Photo ID [facility] No data available for this section [facility] InstructionsNot on filedocumented in this encounter [facility] No data available for this section [facility] reason for referral (narrative) , urinary incontinence, neurogenic bladder, open bladder neck, possible SP tube placement Referred by: Zachery HARKINS, Danya Rhodes [facility] Reason for referral (narrative)* Consultation (Routine) - Authorized Specialty Diagnoses / Procedures Referred By Pablo saavedra Referred To Contact Wound Care Diagnoses Pressure injury of skin of buttock, unspecified injury stage, unspecified laterality Procedures DC OFFICE/OUTPATIENT [facility] 60 MINUTES Genny Orosco NP [address] [place] [phone] Pérez Pederson MD [address], [place] [address] Referral ID Status Reason Start Date Expiration Date Visits Requested Visits Authorized [id number] Authorized Specialty Services Required 05/15/2024 11/11/2024 1 [...] and content) DATE CREATED AUTHOR 06/20/2019 [facility] DATE CREATED AUTHOR AUTHOR'S ORGANIZ ATION 06/20/2019 [facility] DATE CREATED AUTHOR AUTHOR'S ORGANIZ ATION 07/26/2019 [facility] DATE CREATED AUTHOR AUTHOR'S ORGANIZ ATION 12/29/2020 [facility] DATE CREATED AUTHOR AUTHOR'S ORGANIZ ATION 09/16/2021 [employer] DATE CREATED AUTHOR AUTHOR'S ORGANIZ ATION 11/25/2021 [facility] [place] [facility] DATE CREATED AUTHOR AUTHOR'S ORGANIZ ATION 12/10/2021 [facility] DATE CREATED AUTHOR AUTHOR'S ORGANIZ ATION 08/06/2022 [facility] DATE CREATED AUTHOR AUTHOR'S ORGANIZ ATION 01/17/2023 [facility] DATE CREATED AUTHOR AUTHOR'S ORGANIZ ATION 06/09/2023 [facility] DATE CREATED AUTHOR AUTHOR'S ORGANIZ ATION 12/29/2023 [facility] DATE CREATED AUTHOR AUTHOR'S ORGANIZ ATION 05/15/2024 [facility] dical Specialists EPIC <item><item> Privacy Markings [...] Care Team (unrecognized sect ion and content) Fiscal Specialist Relationship Specialty Start Date End Date Shaikh Obrien MD PCP - General Internal Medicine 08/05/23 Fiscal Specialist Relationship Specialty Start Date End Date Shaikh Obrien MD PCP - General Internal Medicine 11/15/22 Fiscal Specialist Relationship Specialty Start Date End Date Unallocated, Nilo Juarez MD [address] [place] [address] PCP - General Family Medicine 06/04/24 Genny Orosco NP [address] [place] [address] Nurse Practitioner Family Medicine 04/12/24 Fiscal Specialist Relationship Specialty Start Date End Date Kosats Ching MD [address] [place] [phone] PCP - General Family Medicine 04/12/24 Genny Orosco NP [address] [place] [phone] Nurse Practitioner Family Medicine 04/12/24 Fiscal Specialist Relationship Specialty Start Date End Date Kostas Ching MD [address] [place] [phone] PCP - General Family Medicine 04/12/24 Genny Orosco NP [address] [place] [phone] Nurse Practitioner Family Medicine 04/12/24 Fiscal Specialist Relationship Specialty Start Date End Date Kostas Ching MD [address] [place] [phone] PCP - General Family Medicine 04/12/24 Genny Orosco NP [address] [place] [phone] Nurse Practitioner Family Medicine 04/12/24 Fiscal Specialist Relationship Specialty Start Date End Date Kostas Ching MD [address] [place] [phone] PCP - General Family Medicine 04/12/24 Genny Orosco NP [address] [place] [phone] Nurse Practitioner Family Medicine 04/12/24 Reason for [...] BE BASED ON THE PRIMARY CLINICAL RECORDS. [employer] [facility]. provides no warranty or guarantee of the accuracy or completeness of information in this document."
[2024-09-01 09:47] LABS: Alanine Aminotransferase 19 U/L (14-59); Albumin Globulin Ratio 0.5; Albumin Level 2.5 g/dL (3.4-5.0); Alkaline Phosphatase 167 U/L (46-116); Aspartate Amino Transferase 19 U/L (15-37); Bilirubin Direct 0.1 mg/dL (0.0-0.2); Bilirubin Total 0.3 mg/dL (0.2-1.0); Globulin 5.5 g/dL
--- NOTE | 2024-09-01 09:54 | P.HP_ITS ---
HPI H&P: HPI History of Present Illness Chief complaint: cellulitis, LT INFECTED FOOT Narrative: Patient with recent discharge from the hospital for cellulitis, was treated with outpatient Levaquin and doxycycline. Over the last 24 hours patient started having increasing swelling and noticed a blister formation on her foot. Patient will be admitted for workup and treatment of failed outpatient treatment of cellulitis. When I saw patient in the emergency room, resting fairly comfortably, moderate pain, no other complaints, no chest pain no shortness of breath the only other real issue for her has been some mild constipation Opioid HPI Opioid Management Most Recent Pain and Opioid Data: Last Pain Scale 8 09/01/24 09:00 09/01/24 Last Pain Assessment 09/01/24 09:00 Last ORT Total Score 10 09/01/24 08:58 09/01/24 Last ORT Risk Category High Risk 09/01/24 08:58 09/01/24 Urine Drug Screen Interp Final (.) 05/14/24 09:30 4 Review of Systems ROS Status of ROS 10 or more systems reviewed and unremark able except as noted in history and below PFSH [facility] Medical History (Updated 09/01/24 @ 09:56 by Mario Celis MD) 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 (ICD-10) Ulcer of left heel and midfoot, limited to breakdown of skin (~08/27/24) ?L97.421 - Non-pressure chronic ulcer of left heel and midfoot limited to breakdown of skin (ICD-10) Opioid use disorder in remission ?F11.91 - Opioid use, unspecified, in remission (ICD-10) Indwelling Alvares catheter present ?Z97.8 - Presence of other specified devices (ICD-10) Accidental fall ?W19.XXXA - Unspecified fall, initial encounter (ICD-10) Pressure ulcer ?L89.90 - Pressure ulcer of unspecified site, unspecified stage (ICD-10) Cellulitis ?L03.90 - Cellulitis, unspecified (ICD-10) Urinary tract infection ?N39.0 - Urinary tract infection, site not specified (ICD-10) Urinary catheter (Alvares) change required ?Z46.6 - Encounter for fitting and adjustment of urinary device (ICD-10) Constipation ?K59.00 - Constipation, unspecified (ICD-10) Alvares catheter problem ?T83.9XXA - Unspecified complication of genitourinary prosthetic device, implant and graft, initial encounter (ICD-10) Drug-seeking behavior ?Z76.5 - Malingerer [conscious simulation] (ICD-10) UTI (urinary tract infection) ?N39.0 - Urinary tract infection, site not specified (ICD-10) Gastritis ?K29.70 - Gastritis, unspecified, without bleeding (ICD-10) Nausea & vomiting ?R11.2 - Nausea with vomiting, unspecified (ICD-10) Pressure sore ?L89.90 - Pressure ulcer of unspecified site, unspecified stage (ICD-10) Retention of urine, unspecified ?R33.9 - Retention of urine, unspecified (ICD-10) Decubital ulcer ?L89.90 - Pressure ulcer of unspecified site, unspecified stage (ICD-10) Swollen leg ?M79.89 - Other specified soft tissue disorders (ICD-10) Bronchitis ?J40 - Bronchitis, not specified as acute or chronic (ICD-10) Alvares catheter problem ?T83.9XXA - Unspecified complication of genitourinary prosthetic device, implant and graft, initial encounter (ICD-10) Vomiting ?R11.10 - Vomiting, unspecified (ICD-10) UTI (urinary tract infection) ?N39.0 - Urinary tract infection, site not specified (ICD-10) Gastritis ?K29.70 - Gastritis, unspecified, without bleeding (ICD-10) Candidal intertrigo ?B37.2 - Candidiasis of skin and nail (ICD-10) Leukocytosis ?D72.829 - Elevated white blood cell count, unspecified (ICD-10) Chronic back pain ?M54.9 - Dorsalgia, unspecified (ICD-10) ?G89.29 - Other chronic pain (ICD-10) Fecal incontinence ?R15.9 - Full incontinence of feces (ICD-10) Urinary incontinence ?R32 - Unspecified urinary incontinence (ICD-10) Wheelchair dependence ?Z99.3 - Dependence on wheelchair (ICD-10) Cord compression myelopathy ?G95.20 - Unspecified cord compression (ICD-10) Surgical History History of back surgery ?Z98.890 - Other specified postprocedural states (ICD-10) Chronic suprapubic catheter ?Z93.59 - Other cystostomy status (ICD-10) Social History Within the past year, how often did you have a drink containing alcohol: never Score interpretation: A score less than 3 is consistent with normal alcohol consumption. Smoking status: Current every day smoker Non-prescribed substance use: former substance user Highest level of school completed/degree received: GED or equivalent Little interest or pleasure in doing things: more than half the days Feeling down, depressed, or hopeless: more than half the days Meds Home Medications and Allergies Home Medications ?Medication ?Instructions ?Recorded ?Confirmed ?Type buprenorphine 8 mg-naloxone 2 mg 1 film sublingual Q8H 03/01/23 09/01/24 History sublingual film diazepam 5 mg tablet 5 mg PO Q8H PRN anxiety 03/30/23 09/01/24 History gabapentin 800 mg tablet 800 mg PO TID 03/30/23 09/01/24 History tizanidine 4 mg tablet 4 mg PO Q8H PRN muscle spasticity 03/30/23 09/01/24 History nystatin 100,000 unit/gram topical 1 applic topical BID #30 grams 07/15/24 09/01/24 Rx powder doxycycline hyclate 100 mg tablet 100 mg PO BID 10 days #20 tabs 08/28/24 09/01/24 Rx levofloxacin 750 mg tablet 750 mg PO DAILY 7 days #7 tabs 08/28/24 09/01/24 Rx Allergies Allergy/AdvReac Type Severity Reaction Status Date / Time codeine Allergy Severe rash Verified 07/15/24 05:16 Penicillins Allergy Severe Anaphylaxis Verified 07/15/24 05:16 quetiapine (From Seroquel) Allergy Severe Seizure Verified 07/15/24 05:16 Exam Constitutional Vital Signs, click to edit/add: Last Vital Signs Temp 98.0 F 09/01/24 08:58 Pulse 88 09/01/24 08:58 Resp 18 09/01/24 08:58 BP 100/66 09/01/24 08:58 Pulse Ox 98 09/01/24 08:58 O2 Del Method Room Air 09/01/24 08:58 Documenting provider has reviewed patient's vital signs: yes Common normals: no apparent distress Chest Common normals: inspection of chest normal Respiratory Common normals: normal respiratory effort, no retractions and clear to auscultation bilaterally Cardio Common normals: regular rate, regular rhythm and no murmurs GI Common normals: Normal to inspection, nondistended, normoactive bowel sounds present, soft to palpation and no hepatosplenomegaly Back & Pelvis Common normals: no CVA tenderness Extremity Common normals: abnormal to inspection (Large blister over anterior portion of left foot, cellulitis bilateral lowe) Results Labs Labs: Short CBC 09/01/24 Range/Units 06:39 WBC 14.8 H (4.0-11.0) 10^3/uL Hgb 14.4 (12.0-16.0) g/dL Hct 44.6 (36.0-48.0) % Plt Count 382 (150-450) 10^3/uL BMP 09/01/24 06:39 Sodium 140 Potassium 4.3 Chloride 103 Carbon Dioxide 29.4 BUN 8.0 Creatinine 0.93 Glucose 138 H Calcium 9.1 Assessment and Plan Assessment and Plan (1) Cellulitis of foot, left: (2) Ulcer of left heel and midfoot, limited to breakdown of skin: Onset Date: ~08/27/24 Plan Admission findings: Significant hypotension, 83/61, leukocytosis, elevated ESR, elevated CRP, secondary to left foot cellulitis with right lower extremity cellulitis as well. Left foot cellulitis with large blister formation-consulted podiatry, start aggressive IV antibiotics she is failed outpatient treatment with Levaquin and doxycycline Severe protein calorie malnutrition-diet supplement Opioid use disorder-continue with her Suboxone 8 mg 3 times daily, try IV Tylenol and Toradol for pain control, Dilaudid only if absolutely necessary Generalized anxiety disorder-continue with home medications Admission status: Patient with failed outpatient treatment of cellulitis now with severe cellulitis left lower extremity with large blister formation, medically necessary treatment will span 2 midnights. IV antibiotics and patient high risk for sepsis. Inpatient status.
--- NOTE | 2024-09-01 10:31 | P.CN_ITS ---
Consult Note: [facility] Data of Consult Consult date: 09/01/24 Requesting Physician: Mario Celis MD Primary Care Provider: Shaikh Micah MD Consult Narrative Reason for consult: b/l LE cellulitis Narrative: Patient is a 49-year-old female who I saw last week when admitted for cellulitis of left lower extremity however at that time there were no signs of infection below the knee. At that time she did have a small superficial heel ulcer and dry flaky skin to bilateral lower legs and dorsal feet. She was discharged home on Levaquin and doxycycline and was using Lac-Hydrin for her dry skin. She relates that she was doing well up until about 24 hours ago when she noticed increased pain, swelling, redness of bilateral lower extremities as well as a large blister developing on her dorsal left foot. She presented to the emergency department early this morning with hypotension, leukocytosis, normal lactate and elevation in inflammatory markers. She was admitted and started on broad-spectrum IV antibiotics. She denies fever, chills, shortness of breath, chest pain. She does admit to loss of appetite but denies vomiting. 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 (ICD-10) Ulcer of left heel and midfoot, limited to breakdown of skin (~08/27/24) ?L97.421 - Non-pressure chronic ulcer of left heel and midfoot limited to breakdown of skin (ICD-10) Opioid use disorder in remission ?F11.91 - Opioid use, unspecified, in remission (ICD-10) Indwelling Alvares catheter present ?Z97.8 - Presence of other specified devices (ICD-10) Accidental fall ?W19.XXXA - Unspecified fall, initial encounter (ICD-10) Pressure ulcer ?L89.90 - Pressure ulcer of unspecified site, unspecified stage (ICD-10) Cellulitis ?L03.90 - Cellulitis, unspecified (ICD-10) Urinary tract infection ?N39.0 - Urinary tract infection, site not specified (ICD-10) Urinary catheter (Alvares) change required ?Z46.6 - Encounter for fitting and adjustment of urinary device (ICD-10) Constipation ?K59.00 - Constipation, unspecified (ICD-10) Alvares catheter problem ?T83.9XXA - Unspecified complication of genitourinary prosthetic device, implant and graft, initial encounter (ICD-10) Drug-seeking behavior ?Z76.5 - Malingerer [conscious simulation] (ICD-10) UTI (urinary tract infection) ?N39.0 - Urinary tract infection, site not specified (ICD-10) Gastritis ?K29.70 - Gastritis, unspecified, without bleeding (ICD-10) Nausea & vomiting ?R11.2 - Nausea with vomiting, unspecified (ICD-10) Pressure sore ?L89.90 - Pressure ulcer of unspecified site, unspecified stage (ICD-10) Retention of urine, unspecified ?R33.9 - Retention of urine, unspecified (ICD-10) Decubital ulcer ?L89.90 - Pressure ulcer of unspecified site, unspecified stage (ICD-10) Swollen leg ?M79.89 - Other specified soft tissue disorders (ICD-10) Bronchitis ?J40 - Bronchitis, not specified as acute or chronic (ICD-10) Alvares catheter problem ?T83.9XXA - Unspecified complication of genitourinary prosthetic device, implant and graft, initial encounter (ICD-10) Vomiting ?R11.10 - Vomiting, unspecified (ICD-10) UTI (urinary tract infection) ?N39.0 - Urinary tract infection, site not specified (ICD-10) Gastritis ?K29.70 - Gastritis, unspecified, without bleeding (ICD-10) Candidal intertrigo ?B37.2 - Candidiasis of skin and nail (ICD-10) Leukocytosis ?D72.829 - Elevated white blood cell count, unspecified (ICD-10) Chronic back pain ?M54.9 - Dorsalgia, unspecified (ICD-10) ?G89.29 - Other chronic pain (ICD-10) Fecal incontinence ?R15.9 - Full incontinence of feces (ICD-10) Urinary incontinence ?R32 - Unspecified urinary incontinence (ICD-10) Wheelchair dependence ?Z99.3 - Dependence on wheelchair (ICD-10) Cord compression myelopathy ?G95.20 - Unspecified cord compression (ICD-10) Surgical History History of back surgery ?Z98.890 - Other specified postprocedural states (ICD-10) Chronic suprapubic catheter ?Z93.59 - Other cystostomy status (ICD-10) Social History Within the past year, how often did you have a drink containing alcohol: never Score interpretation: A score less than 3 is consistent with normal alcohol consumption. Smoking status: Current every day smoker Non-prescribed substance use: former substance user Highest level of school completed/degree received: GED or equivalent Little interest or pleasure in doing things: more than half the days Feeling down, depressed, or hopeless: more than half the days Meds Home Medications and Allergies Home Medications ?Medication ?Instructions ?Recorded ?Confirmed ?Type buprenorphine 8 mg-naloxone 2 mg 1 film sublingual Q8H 03/01/23 09/01/24 History sublingual film diazepam 5 mg tablet 5 mg PO Q8H PRN anxiety 03/30/23 09/01/24 History gabapentin 800 mg tablet 800 mg PO TID 03/30/23 09/01/24 History tizanidine 4 mg tablet 4 mg PO Q8H PRN muscle spasticity 03/30/23 09/01/24 History nystatin 100,000 unit/gram topical 1 applic topical BID #30 grams 07/15/24 09/01/24 Rx powder doxycycline hyclate 100 mg tablet 100 mg PO BID 10 days #20 tabs 08/28/24 09/01/24 Rx levofloxacin 750 mg tablet 750 mg PO DAILY 7 days #7 tabs 08/28/24 09/01/24 Rx Allergies Allergy/AdvReac Type Severity Reaction Status Date / Time codeine Allergy Severe rash Verified 07/15/24 05:16 Penicillins Allergy Severe Anaphylaxis Verified 07/15/24 05:16 quetiapine (From Seroquel) Allergy Severe Seizure Verified 07/15/24 05:16 Exam Narrative Exam Narrative: Skin: Large serous filled blister encompassing nearly the entirety of dorsal left foot and extending over the medial heel and between the digits. Deroofing the blister there is no purulence or deep ulceration. There is a 1 cm partial- thickness ulceration noted on the posterior lateral left heel which does not probe to bone. Bilateral lower extremities are severely edematous and erythematous. No clear evidence of fluctuance or abscess. Patient is able to wiggle toes and compartments are soft. Constitutional Vital Signs, click to edit/add: Last Vital Signs Temp 98.0 F 09/01/24 08:58 Pulse 88 09/01/24 08:58 Resp 18 09/01/24 08:58 BP 100/66 09/01/24 08:58 Pulse Ox 98 09/01/24 08:58 O2 Del Method Room Air 09/01/24 08:58 Results Labs Labs: Short CBC 09/01/24 Range/Units 06:39 WBC 14.8 H (4.0-11.0) 10^3/uL Hgb 14.4 (12.0-16.0) g/dL Hct 44.6 (36.0-48.0) % Plt Count 382 (150-450) 10^3/uL BMP 09/01/24 06:39 Sodium 140 Potassium 4.3 Chloride 103 Carbon Dioxide 29.4 BUN 8.0 Creatinine 0.93 Glucose 138 H Calcium 9.1 Liver Function 09/01/24 Range/Units 06:39 Total Bilirubin 0.3 (0.2-1.0) mg/dL Direct Bilirubin 0.1 (0.0-0.2) mg/dL AST 19 (15-37) U/L ALT 19 (14-59) U/L Alkaline Phosphatase 167 H (46-116) U/L Albumin 2.5 L (3.4-5.0) g/dL Assessment and Plan Assessment and Plan (1) Cellulitis of foot, left: (2) Ulcer of left heel and midfoot, limited to breakdown of skin: Onset Date: ~08/27/24 (3) Cellulitis of right foot: Plan Patient seen and evaluated at bedside with and nurse present The blister was deroofed noting serous drainage and no purulence Continue broad-spectrum antibiotics & medical management - no surgery planned at this time Weightbearing as tolerated -discussed case with physical therapy Apply Betadine between toes of bilateral feet, apply nonadherent (Xeroform or Adaptic) gauze dressing which should be changed daily to the left foot Call with updates
--- NOTE | 2024-09-01 10:38 | PHOTOS ---
posterior right thigh
--- NOTE | 2024-09-01 10:38 | PHOTOS ---
posterior left thight
[2024-09-01] MEDS: KETOROLAC TROMETHAMINE 30 MG/ML VIAL IVP ×3 (12:30→23:57)
[2024-09-01] MEDS: 0.9 % SODIUM CHLORIDE 250 ML 10 ML IV (12:31)
[2024-09-01] MEDS: CLINDAMYCIN PHOSPHATE/D5W 600 MG/50 ML PREMIX 100 MG IV ×3 (12:31→23:57)
[2024-09-01] MEDS: LACTULOSE 10 GM/15 ML UD CUP 30 GM PO (12:31)
[2024-09-01] MEDS: CEFTAZIDIME 2,000 MG in 0.9 % SODIUM CHLORIDE 100 ML 200 MG IV ×2 (14:10→22:05)
[2024-09-01] MEDS: GABAPENTIN 400 MG CAPSULE 800 MG PO ×2 (14:10→22:05)
[2024-09-01] MEDS: NON-FORMULARY 1 EACH (Buprenorphine-Naloxone 8-2 mg film) SL ×2 (14:11→22:09)
[2024-09-01] MEDS: SODIUM CHLORIDE 0.9% IV (14:55)
[2024-09-01] MEDS: GENTAMICIN SULFATE IV (14:55)
[2024-09-01] MEDS: ACETAMINOPHEN 1,000 MG/100 ML PREMIX 400 MG IV (16:46)
[2024-09-01 17:46] LABS: Bilirubin Urine NEGATIVE (NEGATIVE); Blood Urine NEGATIVE (NEGATIVE); Clarity Urine CLEAR (CLEAR); Color Urine LT. YELLOW (YELLOW); Glucose Urine UA NEGATIVE (NEGATIVE); Ketones Urine NEGATIVE (NEGATIVE); Leukocyte Esterase Urine TRACE (NEGATIVE); Nitrite Urine NEGATIVE (NEGATIVE); Protein Urine NEGATIVE (NEG/TRACE)
[2024-09-01] MEDS: VANCOMYCIN HCL 1,250 MG in 0.9 % SODIUM CHLORIDE 250 ML 167 MG IV (17:54)
[2024-09-01 18:02] LABS: Bacteria Urine TRACE #/HPF (NONE SEEN); RBC Urine 0-2 #/HPF (0-2)
[2024-09-01 18:03] LABS: Cast Seen? NONE SEEN #/LPF (NONE SEEN); Crystals Seen? None Seen #/HPF (None Seen); Mucus Urine NONE SEEN (NONE SEEN); Squamous Epithelial Cell Urine RARE #/LPF (NONE/RARE); Urine Culture Indicated YES
[2024-09-01] MEDS: PROSTAT 15 GM PROTEIN/100 CAL 30 ML LIQUID PACKET PO (22:05)
[2024-09-01] MEDS: NYSTATIN 15 GM POWDER 1 APPLIC TOPICAL (22:06)
[2024-09-01] MEDS: L. ACIDOPHILUS/L.BULGARICUS 1 PACKET GRAN.PACK PO (22:06)
[2024-09-01] MEDS: ENSURE HP 237 ML LIQUID PO (22:06)
[2024-09-01] MEDS: JUVEN PACKET 1 PACKET PO (22:06)
[2024-09-01] MEDS: TIZANIDINE HCL 4 MG TABLET PO (22:09)
[2024-09-02] VITALS (7 sets, daily range): BP systolic 84–125; BP diastolic 53–75; PULSE 63–74; TEMP 36–36.7; O2SAT 90–95
[2024-09-02] MEDS: KETOROLAC TROMETHAMINE 30 MG/ML VIAL IVP ×4 (05:29→23:10)
[2024-09-02] MEDS: GABAPENTIN 400 MG CAPSULE 800 MG PO ×3 (05:29→23:11)
[2024-09-02] MEDS: CLINDAMYCIN PHOSPHATE/D5W 600 MG/50 ML PREMIX 100 MG IV ×4 (05:30→23:11)
[2024-09-02] MEDS: CEFTAZIDIME 2,000 MG in 0.9 % SODIUM CHLORIDE 100 ML 200 MG IV ×3 (05:30→23:11)
[2024-09-02] MEDS: VANCOMYCIN HCL 1,250 MG in 0.9 % SODIUM CHLORIDE 250 ML 166 MG IV (05:30)
[2024-09-02] MEDS: NON-FORMULARY 1 EACH (Buprenorphine-Naloxone 8-2 mg film) SL ×3 (05:36→23:17)
[2024-09-02] MEDS: DIAZEPAM 5 MG TABLET PO ×2 (05:39→17:09)
[2024-09-02] MEDS: NICOTINE 21 MG PATCH.TD24 TD (05:39)
[2024-09-02 06:43] LABS: Basophils Percent Auto 0.5 % (0.2-2.0); Eosinophils Absolute Auto 0.2 10^3/uL (0.0-0.7); Eosinophils Percent Auto 2.2 % (0.9-7.0); Hematocrit 34.1 % (36.0-48.0); Hemoglobin 10.7 g/dL (12.0-16.0); Immature Granulocytes Abs Auto 0.08 10^3/uL (0.00-0.03); Lymphocytes Absolute Auto 2.9 10^3/uL (1.2-3.8); Lymphocytes Percent Auto 36.5 % (20.5-60.0); Mean Corpuscular HGB Conc 31.4 g/dL (29.9-35.2); Mean Corpuscular Volume 86.1 fL (81.0-99.0); Mean Platelet Volume 9.5 fL (9.5-13.5); Monocytes Absolute Auto 0.4 10^3/uL (0.3-0.8); Neutrophils Absolute Auto 4.3 10^3/uL (1.4-6.5); Neutrophils Percent Auto 54.8 % (43.0-75.0); Platelet Count 275 10^3/uL (150-450); Red Blood Count 3.96 10^6/uL (4.20-5.40); Red Cell Distribution Width 16.2 % (11.0-15.0); White Blood Count 7.8 10^3/uL (4.0-11.0)
[2024-09-02 06:57] LABS: C Reactive Protein 4.74 mg/dL (<=0.50)
[2024-09-02 06:59] LABS: Alanine Aminotransferase 27 U/L (14-59); Albumin Globulin Ratio 0.4; Albumin Level 1.7 g/dL (3.4-5.0); Alkaline Phosphatase 138 U/L (46-116); Anion Gap 3.7; Aspartate Amino Transferase 31 U/L (15-37); BUN Creatinine Ratio 20.2; Bilirubin Total 0.2 mg/dL (0.2-1.0); Carbon Dioxide 32.1 mmol/L (21.0-32.0); Chloride 107 mmol/L (98-107); Estimated GFR (African America >60 (>=60 mL/min/1.73m^2); Estimated GFR (Non-African Ame >60 (>=60 mL/min/1.73m^2); Globulin 4.1 g/dL; Glucose 125 mg/dL (74-106); Potassium 3.8 mmol/L (3.5-5.1); Sodium 139 mmol/L (136-145); Total Protein 5.8 g/dL (6.4-8.2)
[2024-09-02 07:05] LABS: Gentamicin Random 2.1 ug/mL
[2024-09-02 07:46] LABS: Basophils Absolute Auto 0.1 10^3/uL (0.0-0.1); Basophils Percent Auto 0.6 % (0.2-2.0); Eosinophils Absolute Auto 0.2 10^3/uL (0.0-0.7); Eosinophils Percent Auto 2.7 % (0.9-7.0); Hematocrit 34.1 % (36.0-48.0); Hemoglobin 10.7 g/dL (12.0-16.0); Immature Granulocytes Abs Auto 0.08 10^3/uL (0.00-0.03); Lymphocytes Absolute Auto 2.8 10^3/uL (1.2-3.8); Lymphocytes Percent Auto 35.8 % (20.5-60.0); Mean Corpuscular HGB Conc 31.4 g/dL (29.9-35.2); Mean Corpuscular Volume 86.1 fL (81.0-99.0); Mean Platelet Volume 9.3 fL (9.5-13.5); Monocytes Absolute Auto 0.5 10^3/uL (0.3-0.8); Monocytes Percent Auto 5.7 % (1.7-12.0); Neutrophils Absolute Auto 4.3 10^3/uL (1.4-6.5); Neutrophils Percent Auto 54.2 % (43.0-75.0); Platelet Count 265 10^3/uL (150-450); Red Blood Count 3.96 10^6/uL (4.20-5.40); Red Cell Distribution Width 16.2 % (11.0-15.0); White Blood Count 7.9 10^3/uL (4.0-11.0)
[2024-09-02 08:01] LABS: Alanine Aminotransferase 26 U/L (14-59); Albumin Globulin Ratio 0.4; Albumin Level 1.7 g/dL (3.4-5.0); Alkaline Phosphatase 135 U/L (46-116); Anion Gap 6.9; Aspartate Amino Transferase 32 U/L (15-37); Bilirubin Total 0.2 mg/dL (0.2-1.0); C Reactive Protein 4.49 mg/dL (<=0.50); Calcium 8.1 mg/dL (8.5-10.1); Carbon Dioxide 32.1 mmol/L (21.0-32.0); Chloride 108 mmol/L (98-107); Estimated GFR (African America >60 (>=60 mL/min/1.73m^2); Estimated GFR (Non-African Ame >60 (>=60 mL/min/1.73m^2); Globulin 4.2 g/dL; Glucose 106 mg/dL (74-106); Sodium 143 mmol/L (136-145); Total Protein 5.9 g/dL (6.4-8.2)
[2024-09-02] MEDS: PROSTAT 15 GM PROTEIN/100 CAL 30 ML LIQUID PACKET PO ×2 (09:11→23:10)
[2024-09-02] MEDS: L. ACIDOPHILUS/L.BULGARICUS 1 PACKET GRAN.PACK PO ×2 (09:12→23:10)
[2024-09-02] MEDS: JUVEN PACKET 1 PACKET PO ×2 (09:12→23:10)
[2024-09-02] MEDS: NYSTATIN 15 GM POWDER 1 APPLIC TOPICAL ×2 (09:13→23:18)
[2024-09-02] MEDS: LACTULOSE 10 GM/15 ML UD CUP 30 GM PO (09:13)
--- NOTE | 2024-09-02 10:11 | P.PN_ITS ---
Progress Note: Subjective Subjective Interval history: Patient states pain fairly well-controlled, agreed that the IV Tylenol has been helpful, not needing narcotics Exam Constitutional Vital Signs, click to edit/add: Last Vital Signs Temp 97.5 F L 09/02/24 08:00 Pulse 63 09/02/24 08:00 Resp 18 09/02/24 08:00 BP 90/55 09/02/24 08:00 Pulse Ox 93 L 09/02/24 08:00 O2 Del Method Room Air 09/02/24 08:00 Documenting provider has reviewed patient's vital signs: yes Common normals: no apparent distress Chest Common normals: inspection of chest normal Respiratory Common normals: normal respiratory effort, no retractions and clear to auscultation bilaterally Cardio Common normals: regular rate, regular rhythm and no murmurs GI Common normals: Normal to inspection, nondistended, normoactive bowel sounds present, soft to palpation and no hepatosplenomegaly Back & Pelvis Common normals: no CVA tenderness Extremity Common normals: abnormal to inspection (Dressing in place, will review pictures when dressing is changed) Progress Note: Objective Labs Labs: Short CBC 09/02/24 09/02/24 Range/Units 05:52 07:41 WBC 7.8 7.9 (4.0-11.0) 10^3/uL Hgb 10.7 L 10.7 L (12.0-16.0) g/dL Hct 34.1 L 34.1 L (36.0-48.0) % Plt Count 275 265 (150-450) 10^3/uL BMP 09/02/24 09/02/24 05:52 07:41 Sodium 139 143 Potassium 3.8 4.0 Chloride 107 108 H Carbon Dioxide 32.1 H 32.1 H BUN 17.0 16.0 Creatinine 0.84 0.84 Glucose 125 H 106 Calcium 8.0 L 8.1 L Liver Function 09/01/24 09/02/24 09/02/24 Range/Units 06:39 05:52 07:41 Total Bilirubin 0.3 0.2 0.2 (0.2-1.0) mg/dL Direct Bilirubin 0.1 (0.0-0.2) mg/dL AST 19 31 32 (15-37) U/L ALT 19 27 26 (14-59) U/L Alkaline Phosphatase 167 H 138 H 135 H (46-116) U/L Albumin 2.5 L 1.7 L 1.7 L (3.4-5.0) g/dL Urine 09/01/24 Range/Units 17:30 Urine Color Lt. yellow (YELLOW) Urine Clarity Clear (CLEAR) Urine pH 7.0 (5.0-9.0) Ur Specific [place] 1.020 (1.005-1.025) Urine Protein Negative (NEG/TRACE) mg/dL Urine Glucose (UA) Negative (NEGATIVE) mg/dL Progress Note: A&P Assessment and Plan (1) Cellulitis of foot, left: (2) Ulcer of left heel and midfoot, limited to breakdown of skin: Onset Date: ~08/27/24 (3) Cellulitis of right foot: Plan Admission findings: Significant hypotension, 83/61, leukocytosis, elevated ESR, elevated CRP, secondary to left foot cellulitis with right lower extremity cellulitis as well. Left foot cellulitis with large blister formation-consulted podiatry, start aggressive IV antibiotics she is failed outpatient treatment with Levaquin and doxycycline-overall improved, with white blood cell count improved, blood cultures pending Hypotension persisting-she states she has had this at times in the past, will give 1 fluid bolus this morning. Severe protein calorie malnutrition-diet supplement Opioid use disorder-continue with her Suboxone 8 mg 3 times daily, try IV Tylenol and Toradol for pain control, Dilaudid only if absolutely necessary- doing well with this combination not needing Dilaudid Generalized anxiety disorder-continue with home medications Elevated liver function test-improved Iron deficiency anemia-monitor daily, check occult blood Admission status: Patient with failed outpatient treatment of cellulitis now with severe cellulitis left lower extremity with large blister formation, medically necessary treatment will span 2 midnights. IV antibiotics and patient high risk for sepsis. Inpatient status. Urinary Catheter Management Urinary Catheter Management Urethral: Cath placed during this visit: yes Urethral indwelling: Yes Reason for continuing: measure accurate output Insertion date: 09/01/24 Insertion time: 10:15
[2024-09-02] MEDS: 0.9 % SODIUM CHLORIDE 1,000 ML 1000 ML IV (10:49)
[2024-09-02] MEDS: 0.9 % SODIUM CHLORIDE 250 ML 10 ML IV ×2 (12:25→17:10)
--- NOTE | 2024-09-02 12:42 | P.PN_ITS ---
Progress Note: Subjective Subjective Interval history: Patient sleeping upon entering. She relates that for what ever reason is having increased left dorsal foot burning type pain and requesting narcotics. She has not been out of bed and is reluctant to do so relating that if I had something stronger for the pain I could probably get in the chair. Otherwise she denies nausea, fever, chills, shortness of breath, chest pain. Exam Narrative Exam Narrative: Left lower extremity: Upon removing the bandage dorsal foot swelling is remarkably better with sloughing superficial skin from ruptured blister. No fluctuance. Minimal erythema from the mid leg to the ankle which is also remarkably improved. No calf pain on squeeze. Superficial ulcer on posterior lateral heel is unchanged and has no surrounding signs of infection Right lower extremity: Erythema and edema remarkably improved with intact skin wrinkles. No wounds or open areas. No pain on palpation. Constitutional Vital Signs, click to edit/add: Last Vital Signs Temp 96.8 F L 09/02/24 12:29 Pulse 66 09/02/24 12:29 Resp 18 09/02/24 12:29 BP 113/75 09/02/24 12:29 Pulse Ox 93 L 09/02/24 12:29 O2 Del Method Room Air 09/02/24 12:29 Progress Note: Objective Labs Labs: Short CBC 09/02/24 09/02/24 Range/Units 05:52 07:41 WBC 7.8 7.9 (4.0-11.0) 10^3/uL Hgb 10.7 L 10.7 L (12.0-16.0) g/dL Hct 34.1 L 34.1 L (36.0-48.0) % Plt Count 275 265 (150-450) 10^3/uL BMP 09/02/24 09/02/24 05:52 07:41 Sodium 139 143 Potassium 3.8 4.0 Chloride 107 108 H Carbon Dioxide 32.1 H 32.1 H BUN 17.0 16.0 Creatinine 0.84 0.84 Glucose 125 H 106 Calcium 8.0 L 8.1 L Liver Function 09/01/24 09/02/24 09/02/24 Range/Units 06:39 05:52 07:41 Total Bilirubin 0.3 0.2 0.2 (0.2-1.0) mg/dL Direct Bilirubin 0.1 (0.0-0.2) mg/dL AST 19 31 32 (15-37) U/L ALT 19 27 26 (14-59) U/L Alkaline Phosphatase 167 H 138 H 135 H (46-116) U/L Albumin 2.5 L 1.7 L 1.7 L (3.4-5.0) g/dL Urine 09/01/24 Range/Units 17:30 Urine Color Lt. yellow (YELLOW) Urine Clarity Clear (CLEAR) Urine pH 7.0 (5.0-9.0) Ur Specific [place] 1.020 (1.005-1.025) Urine Protein Negative (NEG/TRACE) mg/dL Urine Glucose (UA) Negative (NEGATIVE) mg/dL Progress Note: A&P Assessment and Plan (1) Cellulitis of foot, left: (2) Ulcer of left heel and midfoot, limited to breakdown of skin: Onset Date: ~08/27/24 (3) Cellulitis of right foot: Plan Patient seen at bedside and dressing removed. Nursing will replace bandage after painting the dorsal foot and interdigital areas with Betadine then applying Xeroform or Adaptic followed by a dry gauze and Kerlix dressing Dressing should be changed daily Weightbearing as tolerated. Encouraged patient to get out of bed No surgery planned as patient is showing significant progress with medical management Discussed with Dr. Celis -I do not feel that additional narcotic pain medicine is necessary at this point especially since patient has been doing very well with IV Tylenol and Toradol. No new orders or change in plan from podiatry standpoint Upon discharge patient should follow-up in the wound center within 1 to 2 weeks Call with updates Urinary Catheter Management Urinary Catheter Management Urethral: Cath placed during this visit: yes Urethral indwelling: Yes Reason for continuing: assist healing open wound Insertion date: 09/01/24 Insertion time: 10:15
[2024-09-02] MEDS: ACETAMINOPHEN 1,000 MG/100 ML PREMIX 400 MG IV (13:37)
[2024-09-02] MEDS: SODIUM CHLORIDE 0.9% IV (14:48)
[2024-09-02] MEDS: GENTAMICIN SULFATE IV (14:48)
[2024-09-02] MEDS: DEXAMETHASONE SOD PHOS 10 MG/ML VIAL IV (15:26)
[2024-09-02] MEDS: ONDANSETRON PF 4 MG/2 ML VIAL IV (17:08)
[2024-09-02] MEDS: VANCOMYCIN HCL 1,250 MG in 0.9 % SODIUM CHLORIDE 250 ML 167 MG IV (17:59)
[2024-09-02] MEDS: TIZANIDINE HCL 4 MG TABLET PO (23:12)
[2024-09-03] VITALS: BP 104/62; PULSE 67; TEMP 36.6; O2SAT 90
[2024-09-03 04:00] VITALS: BP 97/59; TEMP 36.3; O2SAT 90
[2024-09-03] MEDS: KETOROLAC TROMETHAMINE 30 MG/ML VIAL IVP (05:28)
[2024-09-03] MEDS: GABAPENTIN 400 MG CAPSULE 800 MG PO (05:29)
[2024-09-03] MEDS: NON-FORMULARY 1 EACH (Buprenorphine-Naloxone 8-2 mg film) SL (05:29)
[2024-09-03] MEDS: CLINDAMYCIN PHOSPHATE/D5W 600 MG/50 ML PREMIX 100 MG IV (05:29)
[2024-09-03] MEDS: CEFTAZIDIME 2,000 MG in 0.9 % SODIUM CHLORIDE 100 ML 200 MG IV (05:29)
[2024-09-03] MEDS: VANCOMYCIN HCL 1,250 MG in 0.9 % SODIUM CHLORIDE 250 ML 165 MG IV (05:30)
[2024-09-03 05:43] LABS: Hematocrit 36.8 % (36.0-48.0); Hemoglobin 11.7 g/dL (12.0-16.0); Mean Corpuscular HGB Conc 31.8 g/dL (29.9-35.2); Mean Corpuscular Hemoglobin 26.8 pg (26.7-34.0); Mean Corpuscular Volume 84.2 fL (81.0-99.0); Mean Platelet Volume 9.3 fL (9.5-13.5); Platelet Count 329 10^3/uL (150-450); Red Blood Count 4.37 10^6/uL (4.20-5.40); Red Cell Distribution Width 15.4 % (11.0-15.0); White Blood Count 11.6 10^3/uL (4.0-11.0)
[2024-09-03 06:31] LABS: C Reactive Protein 2.26 mg/dL (<=0.50)
[2024-09-03 06:35] LABS: Alanine Aminotransferase 21 U/L (14-59); Albumin Globulin Ratio 0.4; Albumin Level 1.9 g/dL (3.4-5.0); Alkaline Phosphatase 138 U/L (46-116); Anion Gap 10.9; Aspartate Amino Transferase 20 U/L (15-37); BUN Creatinine Ratio 16.4; Bilirubin Total 0.2 mg/dL (0.2-1.0); Calcium 8.1 mg/dL (8.5-10.1); Carbon Dioxide 28.6 mmol/L (21.0-32.0); Chloride 107 mmol/L (98-107); Estimated GFR (African America >60 (>=60 mL/min/1.73m^2); Estimated GFR (Non-African Ame >60 (>=60 mL/min/1.73m^2); Globulin 4.4 g/dL; Glucose 167 mg/dL (74-106); Potassium 4.5 mmol/L (3.5-5.1); Sodium 142 mmol/L (136-145); Total Protein 6.3 g/dL (6.4-8.2)
[2024-09-03 06:36] LABS: Atypical Lymphocytes Abs Man 0.69; Lymphocytes Absolute Manual 0.58 10^3/uL (1.20-3.80); Monocytes Absolute Manual 0.11 10^3/uL (0.30-0.80)
--- NOTE | 2024-09-03 08:37 | P.DS_ITS ---
DS: Providers Provider Date of admission: 09/01/24 08:40 Primary care physician: Shaikh Micah MD Consults: 09/01/24 09:14 Occupational Therapy Eval and Treat Routine Reason for consultation: Only if needed for Rehab Has provider been notified: No Physical Therapy Eval and Treat Routine Reason for consultation: Eval and Treat Has provider been notified: No DS: Diagnosis Discharge Diagnosis (1) Cellulitis of foot, left: (2) Ulcer of left heel and midfoot, limited to breakdown of skin: Onset Date: ~08/27/24 (3) Cellulitis of right foot: Plan Admission findings: Significant hypotension, 83/61, leukocytosis, elevated ESR, elevated CRP, secondary to left foot cellulitis with right lower extremity cellulitis as well. Left foot cellulitis with large blister formation-consulted podiatry, start aggressive IV antibiotics she is failed outpatient treatment with Levaquin and doxycycline-overall improved, with white blood cell count improved, blood cultures pending Hypotension persisting-she states she has had this at times in the past, will give 1 fluid bolus this morning. Severe protein calorie malnutrition-diet supplement Opioid use disorder-continue with her Suboxone 8 mg 3 times daily, try IV Tylenol and Toradol for pain control, Dilaudid only if absolutely necessary- doing well with this combination not needing Dilaudid Generalized anxiety disorder-continue with home medications Elevated liver function test-improved Iron deficiency anemia-monitor daily, check occult blood Admission status: Patient with failed outpatient treatment of cellulitis now with severe cellulitis left lower extremity with large blister formation, medically necessary treatment will span 2 midnights. IV antibiotics and patient high risk for sepsis. Inpatient status. DS: Summary Hospital Course Hospital Course: Patient was seen eval to the emergency room with increasing pain and swelling of her left foot, increasing erythema as well, this is since has been discharged from the hospital recently, levofloxacin with the antibiotic she was placed on and not improving. Patient was admitted placed on IV medications Fortaz and clindamycin and gentamicin, patient had slow steady improvement over the hospitalization, the erythema is much improved, skin is still sloughing she will have further debridements as an outpatient, discussed with podiatry, they are comfortable with her being discharged with her current improvement white blood cell count is still slightly elevated but improved from baseline. CRP is much improved baseline. Medications see list. Follow-up with podiatry next week. Status at Discharge Overall status at discharge: patient is not back to baseline Time Spent with Patient Time attestation: Total time spent providing and/or coordinating discharge services: Time spent: greater than 30 minutes Exam Constitutional Vital Signs, click to edit/add: Last Vital Signs Temp 97.4 F L 09/03/24 04:00 Pulse 67 09/03/24 00:00 Resp 18 09/03/24 04:00 BP 97/59 09/03/24 04:00 Pulse Ox 90 L 09/03/24 04:00 O2 Del Method Room Air 09/03/24 04:00 Documenting provider has reviewed patient's vital signs: yes Common normals: no apparent distress Chest Common normals: inspection of chest normal Respiratory Common normals: normal respiratory effort, no retractions and clear to auscultation bilaterally Cardio Common normals: regular rate, regular rhythm and no murmurs GI Common normals: Normal to inspection, nondistended, normoactive bowel sounds present, soft to palpation and no hepatosplenomegaly Back & Pelvis Common normals: no CVA tenderness Extremity Common normals: abnormal to inspection (Dressing in place, erythema much improved, skin still sloughing) DS: Data Data Completed and Pending Labs on day of discharge: Labs from last 24 hours 09/03/24 05:36 WBC 11.6 H RBC 4.37 Hgb 11.7 L Hct 36.8 MCV 84.2 MCH 26.8 MCHC 31.8 RDW 15.4 H Plt Count 329 MPV 9.3 L Neut % (Auto) Science Analyst Lymph % (Auto) Science Analyst [place] % (Auto) Science Analyst Eos % (Auto) Science Analyst Baso % (Auto) Science Analyst Neut # (Auto) Science Analyst Lymph # (Auto) Science Analyst [place] # (Auto) Science Analyst Eos # (Auto) Science Analyst Baso # (Auto) Science Analyst Abs Immat Gran (auto) Science Analyst Seg Neuts % (Manual) 88.0 H Lymphocytes % (Manual) 5.0 L Atypical Lymphs % (Man) 6.0 Monocytes % (Manual) 1.0 L Eosinophils % (Manual) 0.0 L Basophils % (Manual) 0.0 L Imm/Tot Granulo (auto) Science Analyst Neutrophils # (Manual) 10.20 H Lymphocytes # (Manual) 0.58 L Abs Atypical Lymphs Man 0.69 Monocytes # (Manual) 0.11 L Eosinophils # (Manual) 0.00 Basophils # (Manual) 0.00 Sodium 142 Potassium 4.5 Chloride 107 Carbon Dioxide 28.6 Anion Gap 10.9 BUN 12.0 Creatinine 0.73 Est GFR ( Amer) >60 Est GFR (Non-Af Amer) >60 BUN/Creatinine Ratio 16.4 Glucose 167 H Calcium 8.1 L Total Bilirubin 0.2 AST 20 ALT 21 Alkaline Phosphatase 138 H C-Reactive Protein 2.26 H Total Protein 6.3 L Albumin 1.9 L Globulin 4.4 Albumin/Globulin Ratio 0.4 Discharge Plan Discharge Disposition: Home, Self-Care Condition: Serious Discharge Medications: New clindamycin HCl 300 mg capsule 300 mg PO Q8H 21 Days Qty: 63 0RF cefdinir 300 mg capsule 600 mg PO DAILY Qty: 42 0RF Continued diazepam 5 mg tablet 5 mg PO Q8H PRN (Reason: anxiety) gabapentin 800 mg tablet 800 mg PO TID tizanidine 4 mg tablet 4 mg PO Q8H PRN (Reason: muscle spasticity) buprenorphine-naloxone 8-2 mg film 1 film sublingual Q8H nystatin 100,000 unit/gram powder 1 applic topical BID Qty: 30 0RF Discontinued levofloxacin 750 mg tablet 750 mg PO DAILY 7 Days Qty: 7 0RF doxycycline hyclate 100 mg tablet 100 mg PO BID 10 Days Qty: 20 0RF Activity: ambulate only with your walker Activity Detail: WBAT Diet: advance to your usual diet Print Language: Estonian Patient Instructions: Clindamycin (By mouth), Cefdinir (By mouth), Cellulitis (GEN) Activity Restrictions/Additional Instructions: Cashmere toes with betadine and dress w xeroform gauze and wrap/cover with kerlix Forms: Portal Instructions Follow Up Appointments: Sep.10 @ 1:15pm with Dr. Hunter [phone] Tue. @ 2:45pm with [facility] [address] [place] [address] Caroline Pedroza [phone] Remember to Follow up with [facility] September 24 at 11:15am.
[2024-09-03 08:59] VITALS: BP 105/66; PULSE 61; TEMP 36.4; O2SAT 94
--- NOTE | 2024-09-03 09:19 | CM.NOTE ---
Rounds made with Dr. Celis, pt will discharge to home today. Pt will f/u with PCP in one week and also with Dr. Eugene.
[2024-09-03] MEDS: L. ACIDOPHILUS/L.BULGARICUS 1 PACKET GRAN.PACK PO (10:13)
[2024-09-03] MEDS: LACTULOSE 10 GM/15 ML UD CUP 30 GM PO (10:13)
[2024-09-03] MEDS: PROSTAT 15 GM PROTEIN/100 CAL 30 ML LIQUID PACKET PO (10:13)
[2024-09-03] MEDS: JUVEN PACKET 1 PACKET PO (10:13)
[2024-09-03] MEDS: NYSTATIN 15 GM POWDER 1 APPLIC TOPICAL (10:21)
[2024-09-03 11:45] VITALS: O2SAT 92
[2024-09-04 09:41] LABS: BOX Test Reference Lab FIRELANDS
--- NOTE | 2024-09-04 13:54 | CM.DCFOLLOWU ---
Person spoke with: Orquidea How are you feeling? Better How is your pain? Controlled Did you understand your discharge instructions? Yes Do you have any questions about your discharge instructions? No Were you given any prescriptions at discharge? Yes Were you able to get your prescriptions filled? Yes Do you understand how to take your medications as ordered? Yes Do you have any questions about your follow up appointment and do you plan to keep your follow up appointment? No they are all scheduled and plan to go to all appt Is there anything else that you would like to discuss? No Questions/Comments/Concerns/Other:
== END 2024-09-03 12:41 | disposition home or self-care (01) | DRG 602 ==
LOC: ER 08:20 → MS 08:46
PROVIDERS: Admitting Provider Family Medicine; Emergency Provider Emergency Medicine; PCP Internal Medicine; Visit Provider Family Medicine
DX: L03.116 Cellulitis of left lower limb (principal); E43 Unspecified severe protein-calorie malnutrition; L97.421 Non-pressure chronic ulcer of left heel and midfoot limited to breakdown of skin; L03.115 Cellulitis of right lower limb; I95.9 Hypotension, unspecified; D50.9 Iron deficiency anemia, unspecified; F11.90 Opioid use, unspecified, uncomplicated; F41.1 Generalized anxiety disorder; R79.89 Other specified abnormal findings of blood chemistry; Z68.36 Body mass index [BMI] 36.0-36.9, adult; Z79.899 Other long term (current) drug therapy; Z88.1 Allergy status to other antibiotic agents; Z88.5 Allergy status to narcotic agent; Z88.8 Allergy status to other drugs, medicaments and biological substances
CPT/HCPCS: 36415; 36569; 36592; 73630; 80048; 80053; 80076; 80170; 81001; 85007; 85025; 85027; 85652; 86140; 87040; 87086; 93005; 94761; 96365; 96366; 96375; 97161; 97165; 97530; 99285; 99406; C1887; G0328; J0131; J0713; J1100; J1171; J1580; J1885; J2405; J3370

== ENCOUNTER 2024-09-25 16:22 | Emergency (ER) | payer BC, SELFPAY ==
[2024-09-25 16:28] VITALS: BP 154/93; PULSE 80; TEMP 36.4; O2SAT 99; BMI 35.7
--- NOTE | 2024-09-25 17:09 | ED.GENADUL1 ---
HPI HPI - General Adult General Chief complaint: Extremity Injury, Lower Stated complaint: Behavior Interventionist Time Seen by Provider: 09/25/24 16:32 Source: patient Mode of arrival: Wheelchair Limitations: no limitations History of Present Illness HPI narrative: Patient have a history of chronic Alvares catheter she presented to us multiple times with that, coming to the ER with multiple concerns including the fact that her Alvares catheter fell down over a few days ago, although there is no details of how did that happen She also mentioned that she slipped and fell in her back a few days ago as well when she was trying to go to the bathroom patient mentioned also that she have some mild redness in the right leg which is new compared to the fact that she was evaluated before for cellulitis of the left leg that resolved Patient right now is complaining of lower back pain mostly at the sacral area as well as the lumbar area, no numbness tingling or any weakness in the legs that is more than his baseline Patient is usually wheelchair-bound, after history of back pain and surgery History of chronic neurogenic bladder Related Data Home Medications ?Medication ?Instructions ?Recorded ?Confirmed buprenorphine 8 mg-naloxone 2 mg 1 film sublingual Q8H 03/01/23 09/01/24 sublingual film diazepam 5 mg tablet 5 mg PO Q8H PRN anxiety 03/30/23 09/01/24 gabapentin 800 mg tablet 800 mg PO TID 03/30/23 09/01/24 tizanidine 4 mg tablet 4 mg PO Q8H PRN muscle spasticity 03/30/23 09/01/24 Previous Rx's ?Medication ?Instructions ?Recorded nystatin 100,000 unit/gram topical 1 applic topical BID #30 grams 07/15/24 powder cefdinir 300 mg capsule 600 mg (2 x 300 mg) PO DAILY #42 09/03/24 caps clindamycin HCl 300 mg capsule 300 mg PO Q8H 21 days #63 caps 09/03/24 doxycycline hyclate 100 mg capsule 100 mg PO BID 7 days #14 caps 09/25/24 Allergies Allergy/AdvReac Type Severity Reaction Status Date / Time codeine Allergy Severe rash Verified 07/15/24 05:16 Penicillins Allergy Severe Anaphylaxis Verified 07/15/24 05:16 quetiapine (From 360pi) Allergy Severe Seizure Verified 07/15/24 05:16 Opioid HPI Opioid Management Most Recent Opioid Data: Last Pain Scale 5 09/25/24 16:34 09/25/24 Last ORT Total Score 10 09/01/24 08:58 09/01/24 Last ORT Risk Category High Risk 09/01/24 08:58 09/01/24 Urine Drug Screen Interp Final (.) 05/14/24 09:30 05/14/24 Review of Systems ROS Status of ROS 10 or more systems reviewed and unremarkable except as noted in history and below PFSH PFS Medical History 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 (ICD-10) Ulcer of left heel and midfoot, limited to breakdown of skin (~08/27/24) ?L97.421 - Non-pressure chronic ulcer of left heel and midfoot limited to breakdown of skin (ICD-10) Opioid use disorder in remission ?F11.91 - Opioid use, unspecified, in remission (ICD-10) Indwelling Alvares catheter present ?Z97.8 - Presence of other specified devices (ICD-10) Accidental fall ?W19.XXXA - Unspecified fall, initial encounter (ICD-10) Pressure ulcer ?L89.90 - Pressure ulcer of unspecified site, unspecified stage (ICD-10) Cellulitis ?L03.90 - Cellulitis, unspecified (ICD-10) Urinary tract infection ?N39.0 - Urinary tract infection, site not specified (ICD-10) Urinary catheter (Alvares) change required ?Z46.6 - Encounter for fitting and adjustment of urinary device (ICD-10) Constipation ?K59.00 - Constipation, unspecified (ICD-10) Alvares catheter problem ?T83.9XXA - Unspecified complication of genitourinary prosthetic device, implant and graft, initial encounter (ICD-10) Drug-seeking behavior ?Z76.5 - Malingerer [conscious simulation] (ICD-10) UTI (urinary tract infection) ?N39.0 - Urinary tract infection, site not specified (ICD-10) Gastritis ?K29.70 - Gastritis, unspecified, without bleeding (ICD-10) Nausea & vomiting ?R11.2 - Nausea with vomiting, unspecified (ICD-10) Pressure sore ?L89.90 - Pressure ulcer of unspecified site, unspecified stage (ICD-10) Retention of urine, unspecified ?R33.9 - Retention of urine, unspecified (ICD-10) Decubital ulcer ?L89.90 - Pressure ulcer of unspecified site, unspecified stage (ICD-10) Swollen leg ?M79.89 - Other specified soft tissue disorders (ICD-10) Bronchitis ?J40 - Bronchitis, not specified as acute or chronic (ICD-10) Alvares catheter problem ?T83.9XXA - Unspecified complication of genitourinary prosthetic device, implant and graft, initial encounter (ICD-10) Vomiting ?R11.10 - Vomiting, unspecified (ICD-10) UTI (urinary tract infection) ?N39.0 - Urinary tract infection, site not specified (ICD-10) Gastritis ?K29.70 - Gastritis, unspecified, without bleeding (ICD-10) Candidal intertrigo ?B37.2 - Candidiasis of skin and nail (ICD-10) Leukocytosis ?D72.829 - Elevated white blood cell count, unspecified (ICD-10) Chronic back pain ?M54.9 - Dorsalgia, unspecified (ICD-10) ?G89.29 - Other chronic pain (ICD-10) Fecal incontinence ?R15.9 - Full incontinence of feces (ICD-10) Urinary incontinence ?R32 - Unspecified urinary incontinence (ICD-10) Wheelchair dependence ?Z99.3 - Dependence on wheelchair (ICD-10) Cord compression myelopathy ?G95.20 - Unspecified cord compression (ICD-10) Surgical History History of back surgery ?Z98.890 - Other specified postprocedural states (ICD-10) Chronic suprapubic catheter ?Z93.59 - Other cystostomy status (ICD-10) Social History Within the past year, how often did you have a drink containing alcohol: never Score interpretation: A score less than 3 is consistent with normal alcohol consumption. Smoking status: Current every day smoker Non-prescribed substance use: former substance user Highest level of school completed/degree received: GED or equivalent Little interest or pleasure in doing things: not at all Feeling down, depressed, or hopeless: not at all Exam Narrative Exam Narrative: Nurses notes and vital signs reviewed and patient is not hypoxic. General: Well-appearing and in no apparent distress. Skin: Warm, dry, no pallor noted. No rash. Head: Normocephalic, atraumatic. Neck: Supple, non-tender. Eye: Pupils are equal, round and EOMI. No scleral icterus. Ears, Nose, Mouth, and Throat: TM are clear, no nasal mucosal hypertrophy. Oral mucosa is moist, no posterior oropharynx erythema, uvula is mid-line Cardiovascular: Regular Rate and Rhythm without murmur, gallop or rub. Respiratory: No accessory muscle use or respiratory distress. Lungs are clear to auscultation, no wheezing, rales or rhonchi Chest Wall: no tenderness Back: Patient have midline tenderness at the lumbar level as well as going down to her sacral area there is scarring of previous surgery but there is no ecchymosis noted on examination Musculoskeletal: normal ROM, no calf or popliteal tenderness, bilateral chronic leg edema noted in both legs the patient right leg shows mild erythema on the lateral aspect of the right leg but the left side shows improvement of the cellulitis that I evaluated her last time for, no vascular injury detected GI: Abdomen is soft, non-distended. Normal bowel sounds. No masses appreciated. Some suprapubic discomfort Neurological: A&O x4. No cranial nerve dysfunction observed. No truncal ataxia. Moves all extremities. Sensation intact. Psychiatric: Cooperative and interactive. Normal mood and affect. Constitutional Vital Signs, click to edit/add: Last Vital Signs Temp 97.5 F L 09/25/24 16:28 Pulse 80 09/25/24 16:28 Resp 16 09/25/24 16:28 BP 154/93 H 09/25/24 16:28 Pulse Ox 99 09/25/24 16:28 O2 Del Method Room Air 09/25/24 16:28 Course Vital Signs Vital signs: Vital Signs Temperature 97.5 F L 09/25/24 16:28 Pulse Rate 80 09/25/24 16:28 Respiratory Rate 16 09/25/24 16:28 Blood Pressure 154/93 H 09/25/24 16:28 Pulse Oximetry 99 09/25/24 16:28 Oxygen Delivery Method Room Air 09/25/24 16:28 Temperature 97.5 F L 09/25/24 16:28 Pulse Rate 80 09/25/24 16:28 Respiratory Rate 16 09/25/24 16:28 Blood Pressure 154/93 H 09/25/24 16:28 Pulse Oximetry 99 09/25/24 16:28 Oxygen Delivery Method Room Air 09/25/24 16:28 Medical Decision Making MDM Narrative Medical decision making narrative: The patient had a CT lumbar and CT of the pelvis ordered and pending Alvares catheter was placed The patient was evaluated with CBC and chemistry for cellulitis showing no acute significant pathology the patient was started on doxycycline Awaiting the result of the CT lumbar and CT pelvis the patient care will be transferred to Dr Hodgson Lab Data Labs: Lab Results 09/25/24 Range/Units 17:07 WBC 8.3 (4.0-11.0) 10^3/uL RBC 5.06 (4.20-5.40) 10^6/uL Hgb 14.3 (12.0-16.0) g/dL Hct 43.4 (36.0-48.0) % MCV 85.8 (81.0-99.0) fL MCH 28.3 (26.7-34.0) pg MCHC 32.9 (29.9-35.2) g/dL RDW 16.9 H (11.0-15.0) % Plt Count 227 (150-450) 10^3/uL MPV 9.8 (9.5-13.5) fL Neut % (Auto) 41.5 L (43.0-75.0) % Lymph % (Auto) 46.7 (20.5-60.0) % [place] % (Auto) 5.9 (1.7-12.0) % Eos % (Auto) 5.1 (0.9-7.0) % Baso % (Auto) 0.7 (0.2-2.0) % Neut # (Auto) 3.4 (1.4-6.5) 10^3/uL Lymph # (Auto) 3.9 H (1.2-3.8) 10^3/uL [place] # (Auto) 0.5 (0.3-0.8) 10^3/uL Eos # (Auto) 0.4 (0.0-0.7) 10^3/uL Baso # (Auto) 0.1 (0.0-0.1) 10^3/uL Abs Immat Gran (auto) 0.01 (0.00-0.03) 10^3/uL Imm/Tot Granulo (auto) 0.1 (0.0-0.5) % Sodium 140 (136-145) mmol/L Potassium 3.7 (3.5-5.1) mmol/L Chloride 106 (98-107) mmol/L Carbon Dioxide 26.2 (21.0-32.0) mmol/L Anion Gap 11.5 BUN 6.0 L (7.0-18.0) mg/dL Creatinine 0.87 (0.55-1.02) mg/dL Est GFR ( Amer) >60 (>=60 mL/min/1.73m^2) Est GFR (Non-Af Amer) >60 (>=60 mL/min/1.73m^2) BUN/Creatinine Ratio 6.9 Glucose 92 (74-106) mg/dL Calcium 8.8 (8.5-10.1) mg/dL Total Bilirubin 0.6 (0.2-1.0) mg/dL AST 18 (15-37) U/L ALT 18 (14-59) U/L Alkaline Phosphatase 141 H (46-116) U/L Total Protein 7.4 (6.4-8.2) g/dL Albumin 3.4 (3.4-5.0) g/dL Globulin 4.0 g/dL Albumin/Globulin Ratio 0.9 Discharge Plan Discharge Patient Disposition: Still a Patient
[2024-09-25] MEDS: KETOROLAC TROMETHAMINE 30 MG/ML VIAL 15 MG IVP (17:10)
[2024-09-25 17:28] LABS: Basophils Absolute Auto 0.1 10^3/uL (0.0-0.1); Basophils Percent Auto 0.7 % (0.2-2.0); Eosinophils Absolute Auto 0.4 10^3/uL (0.0-0.7); Eosinophils Percent Auto 5.1 % (0.9-7.0); Hematocrit 43.4 % (36.0-48.0); Hemoglobin 14.3 g/dL (12.0-16.0); Immature Granulocytes Abs Auto 0.01 10^3/uL (0.00-0.03); Immature Granulocytes Pct Auto 0.1 % (0.0-0.5); Lymphocytes Absolute Auto 3.9 10^3/uL (1.2-3.8); Lymphocytes Percent Auto 46.7 % (20.5-60.0); Mean Corpuscular HGB Conc 32.9 g/dL (29.9-35.2); Mean Corpuscular Hemoglobin 28.3 pg (26.7-34.0); Mean Corpuscular Volume 85.8 fL (81.0-99.0); Mean Platelet Volume 9.8 fL (9.5-13.5); Monocytes Absolute Auto 0.5 10^3/uL (0.3-0.8); Monocytes Percent Auto 5.9 % (1.7-12.0); Neutrophils Absolute Auto 3.4 10^3/uL (1.4-6.5); Neutrophils Percent Auto 41.5 % (43.0-75.0); Platelet Count 227 10^3/uL (150-450); Red Blood Count 5.06 10^6/uL (4.20-5.40); Red Cell Distribution Width 16.9 % (11.0-15.0); White Blood Count 8.3 10^3/uL (4.0-11.0)
[2024-09-25 17:41] LABS: Alanine Aminotransferase 18 U/L (14-59); Albumin Globulin Ratio 0.9; Albumin Level 3.4 g/dL (3.4-5.0); Alkaline Phosphatase 141 U/L (46-116); Anion Gap 11.5; Aspartate Amino Transferase 18 U/L (15-37); BUN Creatinine Ratio 6.9; Bilirubin Total 0.6 mg/dL (0.2-1.0); Calcium 8.8 mg/dL (8.5-10.1); Carbon Dioxide 26.2 mmol/L (21.0-32.0); Chloride 106 mmol/L (98-107); Estimated GFR (African America >60 (>=60 mL/min/1.73m^2); Estimated GFR (Non-African Ame >60 (>=60 mL/min/1.73m^2); Glucose 92 mg/dL (74-106); Potassium 3.7 mmol/L (3.5-5.1); Sodium 140 mmol/L (136-145); Total Protein 7.4 g/dL (6.4-8.2)
--- NOTE | 2024-09-25 18:16 | CT_ITS ---
The [address] [address] Patient Name: MORALES LEE MRN: [id number] date: 1975 Sex: F Assigned Patient Location: ER Current Patient Location: ED.MAIN Accession/Order Number: [id number] Exam Date: 09/25/2024 18:03 Report Date: 09/25/2024 19:21 At the request of: KYRA SILVA Procedure: CT pelvis wo con Examination:CT pelvis wo con INDICATION:fall COMPARISON:CT abdomen and pelvis dated 05/07/2022. TECHNIQUE:Multiple thin section transaxial slices were acquired through the pelvis without intravenous contrast. Coronal and sagittal reconstructed images were reviewed. FINDINGS:No acute fractures are present in the bony pelvis. Internal fixation hardware is present in the lumbosacral spine with screws extending along each iliac bone. There are no fluid collections identified in the soft tissues. The visualized bowel loops are normal in caliber without acute inflammation. There is a Alvares catheter in urinary bladder which is decompressed with some iatrogenic air. No free air or free fluid is present within the pelvis. CT/CT pelvis wo con IMPRESSION: No definitive acute fractures present in the bony pelvis. No fluid collections in the soft tissues. Electronically authenticated by: MAYI SAHNI Date: 09/25/2024 19:21
--- NOTE | 2024-09-25 18:16 | CT_ITS ---
[address] [address] Patient Name: MORALES LEE MRN: [id number] date: 1975 Sex: F Assigned Patient Location: ER Current Patient Location: Accession/Order Number: [id number] Exam Date: 09/25/2024 18:03 Report Date: 09/25/2024 19:27 At the request of: KYRA SILVA Procedure: CT lumbar spine wo con EXAM: CT lumbar spine wo con HISTORY: fall COMPARISON: 06/08/2023. TECHNIQUE: Axial CT scans of the lumbar spine were obtained without contrast. MPR images were obtained. Dose reduction techniques were achieved by using: automated exposure control and/or adjustment of mA and /or kV according to patient size and/or use of iterative reconstruction technique. FINDINGS: No acute fracture or posttraumatic malalignment. Old severe compression fracture of L1 and old mild compression of the superior endplates of L2, L3, L4 and L5. Laminectomy at T12, resection of the posterior elements of L1 and laminectomy from L2 to to L4 are again demonstrated. Posterolateral fusion from the visualized T12 down to the pelvis with posterior bone grafts, pedicle screws, iliac screws and connecting rods. No radiolucencies around the pedicle screws. No obvious breakage of the internal fixation devices. There is beam hardening artifact from the internal fixation devices. No obvious intracanalicular abnormality. The visualized retroperitoneum shows no adenopathy or hemorrhage. CT/CT lumbar spine wo con IMPRESSION: No acute fracture or posttraumatic malalignment. Old severe compression fracture of L1 and old mild compression of the superior endplates of L2, L3, L4 and L5. Laminectomies and posterolateral lateral fusion from the visualized T12 down to the pelvis without evidence of loosening. Electronically authenticated by: MICAELA ADORNO Date: 09/25/2024 19:27
[2024-09-25] MEDS: DOXYCYCLINE MONOHYDRATE 100 MG CAPSULE PO (19:08)
== END 2024-09-25 20:02 | disposition home or self-care (01) ==
PROVIDERS: Emergency Medicine; Emergency Provider Emergency Medicine
DX: L03.116 Cellulitis of left lower limb (principal); L03.115 Cellulitis of right lower limb; M54.50 Low back pain, unspecified; Z99.3 Dependence on wheelchair; N31.9 Neuromuscular dysfunction of bladder, unspecified; F17.200 Nicotine dependence, unspecified, uncomplicated
CPT/HCPCS: 36415; 72131; 72192; 80053; 85025; 96374; 99285; J1885

== ENCOUNTER 2024-10-05 09:02 | Emergency (ER) | payer BC, SELFPAY ==
[2024-10-05] VITALS (19 sets, daily range): BP systolic 107–144; BP diastolic 69–93; PULSE 69–88; TEMP 37; O2SAT 77–100; BMI 32.3
--- NOTE | 2024-10-05 09:37 | ECG_ITS ---
The [facility] Test Date: 2024-10-05 Pat Name: MORALES LEE Department: Room: - Gender: Female Rn Recruitment: : 1975 Requested By: Order Number: [id number] Reading MD: SULMA TOMAS Measurements Intervals Danese Rate: 81 P: 54 WY: 146 QRS: 14 QRSD: 86 T: 43 QT: 368 QTc: 406 Interpretive Statements 1100 Sinus rhythm 9110 normal ECG Compared to ECG 09/01/2024 06:16:41 No significant changes Electronically Signed On 10-08-2024 13:31:34 EST by SULMA TOMAS
--- OUTSIDE RECORDS SUMMARY | 2024-10-05 09:37 | XMS_ITS | CCD ---
Author Organization [facility] Care Team Providers Care Saturation Equipment Operator Name Role Phone Required, No Pcp [...] Admitting Unavailable VETO ., IVON Attending Unavailable [facility] Primary Care Unavailable PATRICKDEBORAH SHARIF Consulting Unavailable [facility] Primary Care Unavailable REINECK, DR ABHINAV Livingston Admitting Unavailabl e REINECK, DR ABHINAV Livingston Consulting Unavailabl e REINECK, DR ABHINAV Livingston Attending Unavailabl e HAY ., DR LOW Admitting Unavailable [facility] Primary Care Unavailable HAY ., DR LOW Attending Unavailable ZIEBER, DR ENRIQUE Santana Consulting Unavailable HAY ., DR LOW Consulting Unavailable LUE ., DANYA M Admitting Unavailable LUE ., DANYA M Attending Unavailable PAVMANE, BILL Primary Care Unavailable [facility] Primary Care Unavailable LUE ., DANYA M Admitting Unavailable LUE ., DANYA M Consulting Unavailable LUE ., DANYA M Attending Unavailable CANDICE MATTA Consulting Unava ilRACHEL Kirk Consulting Unavailable DIAB ., KYRA Admitting Unavailable [facility] Primary Care Unavailable DIAB ., KYRA Attending Unavailable GRECHNY ., BONITA HULL Consulting Unavailabl e [facility] Primary Care Unavailable LUE ., DANYA M Admitting Unavailable LUE ., DANYA M Consulting Unavailable LUE ., DANYA M Attending Unavailable PAY ., DR RODRIGUEZ Admitting Unavailable PAY ., DR RODRIGUEZ Consulting Unavailable [facility] Primary Care Unavailable PAY ., DR RODRIGUEZ Attending Unavailable [facility] Primary Care Unavailable REINECK, DR ABHINAV Livingston Admitting Unavailabl e REINECK, DR ABHINAV Livingston Consulting Unavailabl e REINECK, DR ABHINAV Livingston Attending Unavailabl e KORIN STANLEY Consulting Unavailable Dr. Lex Frederick Attending Unava ollie Obrien MD, [facility] Primary Care Provider [facility] Primary Care Unavailable Lue, Danya M. Attending Unavailable SHAIKH OBRIEN Attending Unavailable SHAIKH OBRIEN Attending Unavailable GENNY OROSCO Attending Unavailabl e Micah HARKINS, [facility] Primary Care Provider [phone] Kwesi PROFESSOR OF FINANCE, Genny Unavailable Unallocated , [place] Provider Primary Care Suhail marilu Humza HARKINS, Kostas Primary Care Provider Shaikh Obrien Attending Unavailable Shaikh Obrien Primary Care Unavailable Shaikh Obrien Admitting Unavailable No Pcp, No Pcp Primary Care Provider Unavailabl e SHAIKH OBRIEN Primary Care Unavailable GREYSON ROBERTSON Attending Unavailable BECKIE LOYD Admitting Unavailable ROMMEL FOLEY Consulting Unavailable Allergies Allergy Classification Reported Allergen(s) Allergy Type Date of Onset Reaction(s) Facility Opioid Agonists (1 source) Codeine Drug Allergy Unknown [facility] Penicillins (antibiotic) (1 source) Penicillin Drug Allergy Unknown [facility] QUEtiapine (1 source) QUEtiapine Drug Allergy Unknown [facility] (20 sources) Codeine; Translations: [Codeine] Drug Allergy 6 Hives, Facial Swelling [facility] Work Phone: (20 sources) Penicillins; Translations: [Penicillins] Allergy to drug (finding) Hives, Unknown [facility] Work Phone: (19 sources) Promethazine; Translations: [promethazine] Drug Allergy 1 Swelling, Unknown [facility] (1 source) QUEtiapine Drug Allergy Seizures [facility] (2 sources) Codeine Drug Allergy 3 [facility] Repository (3 sources) gabapentin; Translations: [Neurontin] Drug Allergy [facility] Repository (1 source) Levamisole Drug Allergy [facility] Repository (1 source) Morphine Drug Allergy 0 [facility] Repository (2 sources) Penicillins Drug allergy (disorder) 3 [facility] Repository (1 source) QUEtiapine Drug Allergy 3 [facility] Repository (10 sources) Penicillins Drug Allergy 3 Hives, GI intolerance [facility] (12 sources) QUEtiapine; Translations: [QUETIAPINE] Drug Allergy 3 Unknown [facility] (3 sources) Penicillin; Translations: [PENICILLIN] Drug Allergy 6 Facial Swelling [facility] (3 sources) Phenergan Plain; Translations: [PHENERGAN PLAIN] Propensity to adverse reactions to drug 6 Swelling, Facial Swelling [facility] (1 source) Codeine Drug Allergy 0 [facility] Repository (1 source) Penicillins Drug allergy (disorder) 0 [facility] Repository (1 source) QUEtiapine Drug Allergy 2 [facility] Repository Medications Current Medications Medication Drug Class(es) Dates Sig (Normalized) Sig (Original) Ankle Foot Orthosis (1 source) Start: 09-23-2021 [...] q12hr, # 2 cap(s), Refills(s) 0, [facility]: [id number], 156, cm, 07/16/22 10:58:00 EST, Height/Length Dosing, [...] day(s), # 2 tab(s), Refills(s) 0, [facility] [facility], 156, cm, 01/06/22 10:53:00 EDT, Height/Length Dosing, 78, kg, 01/06/22 10:53:00 EDT... Start Date: 01/06/22 Stop Date: 01/08/22 Status: Ordered diclofenac sodium 50 mg delayed release oral [...] topic al 1% topical gel ; 1 wade topical prn Quantity: 0 Refills: 0 Ordered: 12-Dec-2020 Carole Mcdaniel Status: Discontinued Generic Substitution Allowed Voltaren ; 1 tab (s) oral Quantity: 0 Refills: 0 Ordered: 05-Dec-2020 Carole Mcdaniel Status: Discontinued Generic Substitution Allowed DULoxetine 60 mg delayed release oral capsule [...] Start: 30-Sep-2021 Status: Discontinued Generic Substitution Allowed fluconazole 100 mg oral tablet (2 sources) Azole Antifungal Start: 10-01-2024 End: 10-04-2024 take 1 tablet by mouth in the morning fluconazole (DIFLUCAN) 100 mg tablet Take 1 tablet (100 mg total) by mouth in the morning for 3 days. 3 tablet 10/01/2024 10/04/2024 Active FLUoxetine 20 mg oral capsule (6 sources) Serotonin Reuptake Inhibitor Start: 02-13-2024 End: 05-13-2024 take 1 capsule by mouth once daily FLUoxetine (PROzac) 20 MG capsule Indications: Moderate episode of recurrent major depressive disorder (CMS/HCC) Take 1 capsule (20 mg) by mouth Daily 90 capsule 02/13/2024 Active Start: 11-07-2022 take 1 capsule by mo ut in the morning FLUoxetine (PROzac) 20 MG [...] 0 Active take 2 tablets by mo [facility] once daily as needed furosemide 20 [...] oral tablet (20 sources) Anti-epileptic Agent Start: 10-01-2024 End: 10-01-2024 take 800 mg by mouth three times daily 800 mg, oral, 3 times daily, First dose (after last modification) on Tue10/01/24 at 2200, Look-alike/sound-alike medication - verify indication for use. Start: 02-13-2024 End: 05-13-2024 take 1 tablet [...] Start: 01-05-2016 take 2 capsules by m [facility] three times daily Neurontin 100 mg Cap 200 mg = 2 cap(s), Oral, TID, Refills(s) 0 Start Date: 01/05/16 Status: Ordered Start: 04-17-2015 gabapentin (NE URONTIN) 300 mg capsule Take 800 mg by mouth 3 (three) times a day. 04/17/2015 Active Start: 04-17-2015 take 1 capsule by mo [facility] three times daily gabapentin (NEURONTIN) 300 mg capsule Take 300 mg by mouth 3 (three) times a day. 04/17/2015 Active take 1 tablet by [facility] three times daily gabapentin 800 mg oral tablet ; 1 tab(s) oral 3 times a day Quantity: 0 Refills: 0 Ordered: 12-Dec-2020 Carole Mcdaniel Generic Substitution Allowed Geritol oral tablet (9 sources) Start: 10-30-2011 Geritol oral tablet 1 tab(s), Oral, Daily, 90 tab(s), Refill(s) 0 Start Date: 10/30/11 Status: Ordered hydroCHLOROthiazide 12.5 mg oral tablet (12 sources) Thiazide Diuretic Start: 01-05-2016 take 12.5 mg by mouth once daily hydrochlorothiazide 12.5 mg, Oral, Daily, Refills(s) 0 Start Date: 01/05/16 Status: Ordered Start: 04-17-2015 take 1 capsule by [facility] once daily hydrochlorothiazide (MICROZIDE) 12.5 [...] : 28-Oct-2020 Active lidocaine cream ; 1 wade prn Quantity: 0 Refills: 0 Ordered: 05-Dec-2020 Carole Mcdaniel Status: Discontinued Generic Substitution Allowed 24 hr mirabegron 50 mg extended release oral tablet (6 sources) beta3-Adrenergic Agonist Start: 02-25-2022 take 1 tablet by mouth once daily mirabegron 50 mg oral tablet, extended release 50 mg = 1 tab(s), Oral, Daily, # 30 tab(s), Refills(s) 3, Pharmacy: [facility] [address], 156, cm, 02/04/22 15:47:00 EDT, Height/Length Dosing, 78, kg, 02/04/22 15:47:00 EDT, Weight Dosing Start Date: 02/25/22 Status: Ordered nystatin 100 unt/mg topical powder (10 sources) Polyene Antifungal Start: 03-07-2023 Nyamyc 213197 UNIT/GM powder Apply 1 application topically in [...] Daily, # 30 tab(s), Refills(s) 11, Pharmacy: [facility] #[id number], 156, cm, 07/16/22 10:58:00 EST, Height/Length Dosing, 78, kg, 07/16/22 10:58:00 EST, Weight Dosing Start Date: 10/04/22 Status: Ordered Start: 07-16-2022 take 1 tablet by marlen th once daily oxybutynin 10 mg ER Tab 10 mg = 1 tab(s), Oral, Daily, # 30 tab(s), Refills(s) 11, Pharmacy: [facility] #[id number], 156, cm, 07/16/22 10:58:00 EST, Height/Length Dosing, 78, kg, 07/16/22 10:58:00 EST, Weight Dosing Start Date: 07/16/22 Status: Ordered Start: 03-10-2022 take 1 tablet by [facility] once daily oxybutynin 10 mg ER Tab 10 mg = 1 tab(s), Oral, Daily, # 30 tab(s), Refills(s) 3, Pharmacy: [facility] [facility], 156, cm, 02/04/22 15:47:00 EDT, [...] 07-Jan-2021 Generic Substitution Allowed polyethylene glycol 3350 51673 mg powder for oral solution (5 sources) Osmotic Laxative Start: 09-30-2021 polyethylene glycol 3350 oral powder for reconstitution ; 17 gram(s) orally 3 times a day - available over the counter at any pharmacy Quantity: 0 Refills: 0 Ordered: 30-Sep-2021 Concetta Shi Start: 26-Benjamin-2022 Generic Substitution Allowed Start: 04-17-2015 polyethylene g lycol (MIRALAX) 17 gram packet Take 17 g by mouth daily. 04/17/2015 Active microencapsulated potassium chloride 20 meq extended release oral tablet (3 sources) Start: 10-01-2024 End: 10-08-2024 take 1 tablet by mouth in the morning potassium chloride (KLOR-CON M 20) 20 MEQ CR tablet Take 1 tablet (20 mEq total) by mouth in the morning for 7 days. 7 tablet 10/01/2024 10/08/2024 Active Start: 10-01-2024 End: 10-01-2024 potassium chloride (KLOR-CON M 20) CR tablet 30-50 mEq promethazine hydrochloride 12.5 mg oral tablet (11 sources) Phenothiazine Start: 02-06-2024 take 1 tablet [...] psyllium 3400 mg powder for oral suspension (10 sources) psyllium (Metamucil) 28 % packet Take 1 packet by mouth in the morning. Mix and drink with at least 8 ounces of water or juice.. Active RIGHT AFO (1 source) Start: RIGHT AFO ; - Orthotics to fit- M21.37 Quantity: 1 Refills: 0 Ordered: 23-Sep-2021 Ambrocio Izaguirre Start: 23-Sep-2021 Generic Substitution Allowed sulfamethoxazole 800 mg / trimethoprim 160 mg oral tablet (2 sources) Dihydrofolate Reductase Inhibitor Antibacterial, Sulfonamide Antimicrobial Start: 025 End: take 1 tablet by mouth once in the morning sulfamethoxazole-tr imethoprim (BACTRIM DS) 800-160 mg per tablet Take 1 tablet by mouth in the morning and 1 tablet before bedtime. Do all this for 7 days. 14 tablet 10/01/2024 10/08/2024 Active 24 hr tolterodine tartrate 4 mg extended release oral capsule (1 source) Cholinergic Muscarinic Antagonist Start: take 1 capsule by mouth once daily tolterodine 4 mg Cap-ER 4 mg = 1 cap(s), Oral, Daily, # 30 cap(s), Refills(s) 0, Pharmacy: [address], 156, cm, 01/07/22 13:43:00 EDT, Height/Length Dosing, 78, kg, 01/06/22 10:53:00 EDT, Weight Dosing Start Date: 01/28/22 Status: Ordered zolpidem tartrate 12.5 mg extended release oral tablet (20 sources) gamma-Aminobutyric Acid-ergic Agonist Start: take 1 tablet by mouth once at bedtime zolpidem 10 mg oral tablet ; 1 tab(s) orally once (at bedtime) Quantity: 0 Refills: 0 Ordered: 30-Sep-2021 Concetta Shi Start: 30-Sep-2021 Status: Discontinued Generic Substitution Allowed Start: 10-28-2020 Ambien CR 12.5 MG Oral Tablet Extended Release Quantity: 0 Refills: 0 Ordered: 28-Oct-2020 DO Start : 28-Oct-2020 Active Start: 04-17-2015 End: 10-01-2024 take 1 tablet by mouth at bedtime zolpidem CR (Ambien CR) 12.5 MG ER tablet Indications: Psychophysiological insomnia Take 1 tablet (12.5 mg) by mouth at bedtime 30 tablet 2 02/13/2024 Active Completed/Discontinued Medications Medication Drug Class(es) Dates Sig (Normalized) Sig (Original) acetaminophen 325 mg oral tablet (3 sources) Start: 10-01-2024 End: 10-01-2024 take 1 tablet by mouth every four hours as needed for headache and pain 650 mg, oral, Every 4 hours PRN, headaches, mild pain - pain scale 1-3, Temperature greater than 38.3 C, Starting on 10/01/24 at 0412, [Warning: Total Acetaminophen not to exceed more than 4 grams (4000 mg) in 24 hours] Start: 01-01-2021 take 2 tablets by [facility] every six hours acetaminophen 325 mg oral tablet ; 2 tab(s) orally every 6 hours, as needed while having post operative pain Quantity: 0 Refills: 0 Ordered: 01-Jan-2021 Ambrocio Izaguirre Start: 01-Jan-2021 Generic Substitution Allowed aluminum hydroxide 40 mg/ml / magnesium hydroxide 40 mg/ml / simethicone 4 mg/ml oral suspension (1 source) Start: 10-01-2024 End: 10-01-2024 take 30 mL by mouth four times daily at bedtime as needed 30 mL, oral, 4 times daily after meals and at bedtime as needed, dyspepsia, Starting on Tue10/01/24 at 0412, Look-alike/sound-alike medication - verify indication for use. Arjun well., Indications: dyspepsia betamethasone 1 mg/ml topical cream (13 sources) Corticosteroid Start: 10-28-2020 Betamethasone Valerate 0.1 % External Cream APPLY TO AFFECTED AREA TWICE DAILY NEEDED FOR ITCHING FOR NO MORETHAN 2 WEEKS CONSECUTIVELY Quantity: 1 Refills: 2 Ordered: 28-Oct-2020 DO Start : 28-Oct-2020 Active betamethasone to pical valerate 0.1% topical cream ; 1 wade topical prn Quantity: 0 Refills: 0 Ordered: 12-Dec-2020 Carole Mcdaniel Status: Discontinued Generic Substitution Allowed buprenorphine 8 mg / naloxone 2 mg sublingual tablet (20 sources) Partial Opioid Agonist, Opioid Antagonist Start: 10-01-2024 End: 10-01-2024 take 3 tablets under the tongue once daily 3 tablet, sublingual, Daily, First dose on Tue10/01/24 at 1100 Start: 10-28-2020 Suboxone 8-2 M G Sublingual Film Quantity: 0 Refills: 0 Ordered: 28-Oct-2020 DO Start : 28-Oct-2020 Active Start: 04-17-2015 buprenorphine- naloxone (SUBOXONE) 8-[address] 3 Film under the tongue daily. 04/17/2015 Active take 1 tablet under the tongue twice [...] Ordered: 01-Jan-2021 Ambrocio Izaguirre Generic Substitution Allowed 100 ml calcium gluconate 20 mg/ml injection (1 source) Start: 10-01-2024 End: 10-01-2024 take 4-4.3 mg intravenously every hour as needed 2,000 mg, intravenous, at 50 mL/hr, Administer over 2 Hours, As needed, ionized calcium 4 to 4.3 mg/dL, Starting on Tue10/01/24 at 0413, IV Administration of calcium via a central or deep vein preferred. Avoid administration in small hand veins VESICANT (RED) calcium gluconate 3,000 mg in sodium chloride 0.9 % 100 mL IVPB (1 source) Start: 10-01-2024 End: 10-01-2024 take 3.5-3.9 mg intravenously every hour as needed 3,000 mg, intravenous, at 43.3 mL/hr, Administer over 3 Hours, As needed, ionized calcium 3.5 to 3.9 mg/dL, Starting on Tue10/01/24 at 0413, IV Administration of calcium via a central or deep vein preferred. Avoid administration in small hand veins VESICANT (RED) calcium gluconate 4,000 mg in sodium chloride 0.9 % 250 mL IVPB (1 source) Start: 10-01-2024 End: 10-01-2024 take 3.4 mg intravenously every hour as needed 4,000 mg, intravenous, at 72.5 mL/hr, Administer over 4 Hours, As needed, ionized calcium 3.4 mg/dL or less, Starting on Tue10/01/24 at 0413, IV administration of calcium via a central or deep vein is preferred. Avoid administration in small hand veins. VESICANT (RED) chlorhexidine gluconate 40 mg/ml medicated liquid soap (11 sources) Start: 12-12-2020 Chlorhexidine Gluconate 4 % LIQD use as a preoperative shower Quantity: 1 Refills: 0 Ordered: 12-Dec-2020 Vanessa Khan Start : 12-Dec-2020 Active cyclobenzaprine hydrochloride 5 mg oral tablet (20 sources) Muscle Relaxant Start: 10-28-2020 Cyclobenzaprine HCl - 5 MG Oral Tablet Quantity: 0 Refills: 0 Ordered: 28-Oct-2020 DO Start : 28-Oct-2020 Active Start: 04-17-2015 End: 10-01-2024 take 1 tablet by mouth three times daily as needed for muscle spasms cyclobenzaprine (FLEXERIL) 10 mg tablet Take 10 mg by mouth 3 (three) times a day as needed for muscle spasms. 04/17/2015 10/01/2024 Discontinued take 1 tablet by marlen th once daily cyclobenzaprine 5 mg oral tablet ; 1 tab(s) oral once a day Quantity: 0 Refills: 0 Ordered: 05-Dec-2020 FaustinoRosette solanobeth Status: Discontinued Generic Substitution Allowed diazePAM 5 mg oral tablet (20 sources) Benzodiazepine Start: 10-01-2024 End: 10-01-2024 take 1 tablet by mouth every six hours as needed 5 mg, oral, Every 6 hours PRN, muscle spasms, Starting on Tue10/01/24 at 1007, Look-alike/sound-alike medication - verify indication for use. Do not use solution in feeding tubes (due to absorption to plastic tubing). Tablets may be crushed and administered in tubes (except j-tube) Start: 02-13-2024 End: 07-23-2024 take 1 tablet [...] Start Date: 01/05/16 Status: Ordered Start: 04-17-2015 End: 10-01-2024 take 1 tablet by mouth every eight hours as needed for anxiety diazepam (VALIUM) 2 mg tablet Take 2 mg by mouth every 8 (eight) hours as needed for anxiety or muscle spasms. 04/17/2015 10/01/2024 Discontinued Valium 10 mg ora l tablet ; 1 tab(s) oral Quantity: 0 Refills: 0 Ordered: 05-Dec-2020 Carole Mcdaniel Status: Discontinued Generic Substitution Allowed Valium ; 1 tab(s ) oral Quantity: 0 Refills: 0 Ordered: 05-Dec-2020 Carole Mcdaniel Status: Discontinued Generic Substitution Allowed docusate sodium 50 mg / sennosides, shelter 8.6 mg oral tablet (3 sources) Start: 10-01-2024 End: 10-01-2024 take 1 tablet by mouth every twelve hours as needed for constipation 1 tablet, oral, Every 12 hours PRN, constipation, Starting on Tue10/01/24 at 0412 Start: 01-01-2021 take 2 tablets by mo [facility] twice daily for pain sennosides-docusate 8.6 mg-50 mg oral tablet ; 2 tab(s) orally 2 times a day -Take while using oxycodone for post operative pain to prevent contipation Quantity: 30 Refills: 0 Ordered: 01-Jan-2021 Ambrocio Izaguirre Start: 01-Jan-2021 Generic Substitution Allowed Comments: Medication should be taken with plenty of water. Comment on above: Medication should be taken with plenty of water. doxycycline hyclate 100 mg oral capsule (1 source) Tetracycline-class Drug Start: End: take 1 capsule by mouth in the morning, then take 1 capsule by mouth at bedtime doxycycline (VIBRAMYCIN) 100 mg capsule Take 1 capsule (100 mg total) by mouth in the morning and 1 capsule (100 mg total) before bedtime. Do all this for 7 days. 14 capsule 10/01/2024 10/01/2024 Discontinued (Stop Taking at Discharge) 0.4 ml enoxaparin sodium 100 mg/ml prefilled syringe (1 source) Low Molecular Weight Heparin Start: End: inject 40 mg by subcutaneous injection once daily 40 mg, subcutaneous, Daily, First dose on Tue10/01/24 at 0415, Look-alike/sound-a like medication - verify indication for use. glucagon (rdna) 1 mg injection (1 source) Antihypoglycemic Agent Start: End: 1 mg, intramuscular, As needed, low blood sugar, blood glucose less than 70 mg/dL and unconscious or NPO without IV access., Starting on Tue10/01/24 at 0412, If conscious and not NPO, immediately follow with meal tray or high protein (7Grams) snack if tray not available. If NPO, initiate IV 5% Dextrose/Water at 100 mL/hr and contact prescriber for additional orders. If blood glucose is not greater than 70 mg/dL after initial treatment, repeat treatment. 150 ml glucose 50 mg/ml injection (3 sources) Start: End: 15 g, oral, As needed, low blood sugar, blood glucose less than 70 mg/dL, Starting on Tue10/01/24 at 0412, If patient conscious and taking PO. If blood glucose is not greater than 70 mg/dL after initial treatment, repeat treatment. Start: 10-01-2024 End: 10-01-2024 25 mL, intravenous, As neede d, low blood sugar, blood glucose less than 70 mg/dL and unconscious or NPO with IV access, Starting on Tue10/01/24 at 0412, Push over 1-3 minutes STAT. If conscious and not NPO, immediately follow with meal tray or high protein (7 grams) snack if tray not available. If NPO, initiate 5% dextrose in water at 100 mL/hr and contact prescriber for additional orders. If blood glucose is not greater than 70 mg/dL after initial treatment, repeat treatment. VESICANT (RED) Warning: HYPERTONIC solution. Start: 10-01-2024 End: 10-01-2024 take 70 mg intravenously every hour 100 mL/hr, intravenous, Continuous PRN, blood glucose less than 70 mg/dL, Starting on Tue10/01/24 at 0412, Use immediately following dextrose 50% or glucagon treatment for patients who are unconscious or NPO. Contact prescriber for additional orders. If blood glucose is not greater than 70 mg/dL after initial treatment, repeat treatment. 1 ml HYDROmorphone hydrochloride 1 mg/ml injection (1 source) Opioid Agonist Start: 09-30-2024 End: 10-01-2024 1 mg, intravenous, Once, On 09/30/24 at 2340, For 1 dose, If IV push, administer over over 2 to 3 minutes. Look-alike/sound-alike medication - verify indication for use. 1 ml ketorolac tromethamine 15 mg/ml injection (1 source) Nonsteroidal Anti-inflammatory Drug, Cyclooxygenase Inhibitor Start: 10-01-2024 End: 10-01-2024 take 15 mg intravenously every six hours as needed for pain 15 mg, intravenous, Every 6 hours PRN, severe pain - pain scale 7-10, Starting on Tue10/01/24 at 1601, For 5 days, Look-alike/sound-alike medication - verify indication for use. Duration of therapy is not to exceed 5 days. Maximum recommended dose + 120mg/24 hours. lisinopril 20 mg oral tablet (20 sources) Angiotensin Converting Enzyme Inhibitor Start: 10-28-2020 Lisinopril 20 MG Oral Tablet Quantity: 0 Refills: 0 Ordered: 28-Oct-2020 DO Start : 28-Oct-2020 Active Start: 04-17-2015 End: 10-01-2024 take 1 tablet by mouth once daily lisinopril (PRINIVIL,ZESTRIL) 10 mg tablet Take 10 mg by mouth daily. 04/17/2015 10/01/2024 Discontinued take 1 tablet by marlen once daily lisinopril 20 mg oral tablet ; 1 tab(s) oral once a day Quantity: 0 Refills: 0 Ordered: 12-Dec-2020 Carole Mcdaniel Generic Substitution Allowed 50 ml magnesium sulfate 40 mg/ml injection (2 sources) Start: 10-01-2024 End: 10-01-2024 2,000 mg, intravenous, at 25 mL/hr, Administer over 120 Minutes, As needed, Magnesium level 1.7 to 1.9 mg/dL, or Ionized Magnesium level 0.45 to 0.5 mmol/L., Starting on Tue10/01/24 at 0413, Recheck magnesium level 4 hours after infusion complete. With each magnesium result continue the replacement orders as needed. Start: 10-01-2024 End: 10-01-2024 4,000 mg, intravenous, at 25 mL/hr, Administer over 240 Minutes, As needed, Magnesium level 1.6 mg/dL or less, or Ionized Magnesium level 0.44 mmol/L or less, Starting on Tue10/01/24 at 0413, Recheck magnesium level 4 hours after infusion complete. With each magnesium result continue the replacement orders as needed. 1 ml morphine sulfate 2 mg/ml prefilled syringe (1 source) Opioid Agonist Start: 10-01-2024 End: 10-01-2024 take 2 mg intravenously every four hours as needed for pain and pain 2 mg, intravenous, Every 4 hours PRN, moderate pain - pain scale 4-6, severe pain - pain scale 7-10, Breakthrough pain, or if oral pain medication ineffective or not tolerated. Or if patient NPO, Starting on Tue10/01/24 at 0413, Look-alike/sound-alike medication - verify indication for use. mupirocin 0.02 mg/mg topical ointment (11 sources) RNA Synthetase Inhibitor Antibacterial Start: 12-12-2020 Mupirocin 2 % External Ointment use intra nasally 3 days before surgery twice daily Quantity: 1 Refills: 0 Ordered: 12-Dec-2020 Vanessa Khan Start : 12-Dec-2020 Active 24 hr nicotine 0.875 mg/hr transdermal system (3 sources) Cholinergic Nicotinic Agonist Start: 10-01-2024 End: 10-01-2024 apply 1 dose transdermal route once daily 1 patch, transdermal, Administer over 24 Hours, Daily, First dose on Tue10/01/24 at 1605, Remove patch prior to MRI procedure as serious [place] may occur- patch may be reapplied. Remove previous patch, if present, before applying new. Start: 01-01-2021 nicotine 14 mg /24 hr transdermal film, extended release ; 1 [...] oral capsule (3 sources) Nitrofuran Antibacterial Start: 023 Macrobid 100 mg Cap 100 mg = 1 cap(s), Oral, As Directed, Take 1 tab by mouth after catheter change then take second tab 12 hours later. Take with food., # 2 cap(s), Refills(s) 0, [id number], 156, cm, 11/26/22 8:15:00 EDT, Height/Length Dosing, 78, kg, 11/26/22 8:15:00 EDT, Weight Dosing Start Date: 11/26/22 Status: Ordered 2 ml ondansetron 2 mg/ml injection (14 sources) Serotonin-3 Receptor Antagonist Start: 025 End: 025 take 4 mg intravenously every four hours as needed for nausea and vomiting 4 mg, intravenous, Every 4 hours PRN, nausea, vomiting, Starting on Tue10/01/24 at 0412, Administer over 2-5 minutes. Start: 10-28-2020 Zofran 4 MG TA BS Quantity: 0 Refills: 0 Ordered: 28-Oct-2020 DO Start : 28-Oct-2020 Active Zofran 4 mg oral tablet ; 1 tab(s) oral Quantity: 0 Refills: 0 Ordered: 05-Dec-2020 Carole Mcdaniel Status: Discontinued Generic Substitution Allowed 2 ml orphenadrine citrate 30 mg/ml injection (1 source) Muscle Relaxant Start: 10-01-2024 End: 10-01-2024 60 mg, intravenous, Once, On Tue10/01/24 at 0140, For 1 dose, If ordered IV: give over [address] patient in supine position during and for 5-10 minutes following injection. polyethylene glycol 3350 [id number] mg / potassium chloride 2970 mg / sodium bicarbonate 6740 mg / sodium chloride 5860 mg / sodium sulfate 31337 mg powder for oral solution (8 sources) Osmotic Laxative Start: 09-29-2021 PEG-3350/Electroly mauri 236 GM Oral Solution Reconstituted TAKE DIRECTED. Quantity: 1 Refills: 0 Ordered: 29-Sep-2021 Nasra Gautam MD Start : 29-Sep-2021 Active Prior to colonoscopy 1000 ml sodium chloride 9 mg/ml injection (4 sources) Start: 10-01-2024 End: 10-01-2024 take 100 mL intravenously every hour 100 mL/hr, intravenous, Continuous, Starting on Tue10/01/24 at 0415, For 1 day Start: 10-01-2024 End: 10-01-2024 take 20 mL intravenously every hour as needed 20 mL/hr, intravenous, Continuous PRN, to maintain patency of lines, Starting on Tue10/01/24 at 0412 Start: 10-01-2024 End: 10-01-2024 take 25 mL intravenously every hour as needed 25 mL, intravenous, at 100 mL/hr, Administer over 15 Minutes, As needed, line care, line care after IVPB administration, Starting on Tue10/01/24 at 0412 Start: 09-30-2024 End: 10-01-2024 3 mL, intravenous, As needed , line care, before and after each intermittent use, Starting on Tue09/30/24 at 2333 sodium phosphate 20 mmol in sodium chloride 0.9 % 250 mL IVPB (1 source) Start: 10-01-2024 End: 10-01-2024 sodium phosphate 20 mmol in sodium chloride 0.9 % 250 mL IVPB tiZANidine 4 mg oral tablet (10 sources) Central alpha-2 Adrenergic Agonist Start: 10-01-2024 End: 10-01-2024 take 1 tablet by mouth every six hours as needed 4 mg, oral, Every 6 hours PRN, muscle spasms, Starting on Tue10/01/24 at 1004, Look-alike/sound- alike medication - verify indication for use. Start: 02-13-2024 End: 05-13-2024 take 1 tablet by mouth every eight [...] Ambrocio Izaguirre Start: 02-Oct-2021 Generic Substitution Allowed Problems Active Problems Problem Classification Problem Date Documented Da te Episodic/Chronic Allergic reactions (1 source) Allergy status to penicillin; Translations: [Allergy status to penicillin] Onset: 2 Episodic Anxiety disorders (2 sources) Anxiety disorder, unspecified; Translations: [Post-traumatic stress disorder, unspecified] Onset: 2 Chronic Chronic ulcer of skin (10 sources) Pressure ulcer of buttock; Translations: [Pressure ulcer of unspecified buttock, unspecified stage] Onset: 5 05-15-2024 Chronic E Codes: Fall (1 source) [...] [Incontinence without sensory awareness] Onset: 2 Chronic Genitourinary symptoms and ill-defined conditions (20 sources) History of urinary tract infection; Translations: [Personal history of urinary (tract) infections] Onset: 2 Episodic Joint disorders and dislocations; trauma-related (10 sources) Dislocation of lumbar facet joint; Translations: [Closed dislocation, lumbar vertebra] Episodic Malaise and fatigue (4 sources) Asthenia; Translations: [Weakness] Onset: 5 10-01-2024 Episodic Miscellaneous mental health disorders (11 sources) Psychophysiologic insomnia; Translations: [Psychophysiologic insomnia] Onset: 4 02-13-2024 Chronic Mood disorders (20 sources) Depressive disorder; Translations: [Major depressive disorder, single episode, unspecified] Onset: 2 02-21-2014 Chronic Mood disorders (2 sources) Mood disorders; Translations: [Depression, unspecified] Onset: 2 Nausea and vomiting (4 sources) Nausea; Translations: [Nausea] Onset: 3 Episodic Nonspecific chest pain (1 source) Chest pain, unspecified; Translations: [Chest pain, unspecified] Onset: 5 Episodic Other acquired deformities (20 sources) Kyphosis of thoracic spine; Translations: [Kyphosis (acquired) (postural)] Onset: 3 12-27-2020 Chronic Other acquired deformities (20 sources) Acquired kyphosis; Translations: [Kyphosis (acquired) (postural)] Chronic Other acquired deformities (20 sources) Scoliosis of lumbar spine; Translations: [Scoliosis [...] region] Onset: 2 Chronic Other acquired deformities (9 sources) Kyphoscoliosis deformity of spine; Translations: [Scoliosis, unspecified] Onset: 4 11-01-2023 Chronic Other acquired deformities (9 sources) Kyphosis of thoracolumbar spine; Translations: [Unspecified kyphosis, thoracolumbar region] Onset: 3 11-01-2023 Chronic Other aftercare (2 sources) Other children counselor (current) drug therapy; Translations: [Other longterm (current) drug therapy] Onset: 2 Episodic Other [...] Onset: 2 Episodic Other nervous system disorders (20 sources) Spinal cord compression; Translations: [Unspecified disease of spinal cord] Onset: 7 12-08-2016 Chronic Other nervous system disorders (3 sources) Other chronic pain; Translations: [Other chronic [...] Onset: 2 Chronic Other nervous system disorders (11 sources) Spinal cord disease; Translations: [Disease of spinal cord, unspecified] Onset: 7 12-08-2016 Chronic Other nervous system disorders (11 sources) Walking disability; Translations: [Difficulty in walking, not elsewhere classified] Onset: 4 11-01-2023 Chronic Other nervous system disorders (11 sources) H/O: Disorder; Translations: [Personal history of other disorders of nervous system and sense organs] Episodic Other nutritional; endocrine; and metabolic disorders (1 source) Obese class I; Translations: [Body mass index (BMI) 32.0-32.9, adult] Onset: 2 Chronic Other nutritional; endocrine; and metabolic disorders (16 sources) Body mass index 30+ - obesity; [...] conditions (not mental disorders or infectious disease) (19 sources) Patient encounter status; Translations: [Special screening for malignant neoplasms of colon] Onset: 4 05-15-2024 Episodic Other skin disorders (1 source) Disorder of the skin and subcutaneous tissue, unspecified; Translations: [DISORDER SKIN AND SUBQ TISSUE UNS] Onset: 3 Episodic Residual codes; unclassified (11 sources) Dependence on wheelchair; Translations: [Dependence on [...] myelopathy, thoracic region] Onset: 7 12-26-2020 Chronic Spondylosis; intervertebral disc disorders; other back problems (20 sources) Spinal stenosis; Translations: [Spinal stenosis, thoracic region] Onset: 1 06-06-2022 Episodic Comment on above: BACK PAIN Substance-related disorders (20 sources) History of drug abuse; Translations: [Other, mixed, or unspecified drug abuse, in remission] Onset: 9 01-05-2016 Chronic Comment on above: Added secondary [...] sources) Kyphosis of thoracic region 12-27-2020 Unclassified (2 sources) Low back pain, unspecified; Translations: [Low back pain, unspecified] Onset: 2 Unclassified (1 source) Contact with and (suspected) exposure to COVID-19; Translations: [Contact with and (suspected) exposure to COVID-19] Onset: 2 Unclassified (1 source) CONTACT W/AND (SUSP) EXPOS COVID-19; Translations: [CONTACT W/AND (SUSP) EXPOS COVID-19] Onset: 2 Unclassified (1 source) Ill Onset: 5 Viral infection (18 sources) Genital herpes simplex; Translations: [Herpesviral infection [...] unspecified] Onset: 10-02-2021 Episodic Other acquired deformities (19 sources) Acquired deformity of spine; Translations: [Other acquired deformity of back or spine] Onset: 06-13-2023 11-01-2023 Episodic Other circulatory disease (1 source) Hypotension, unspecified; Translations: [Hypotension, unspecified] Onset: 10-02-2021 Episodic Other connective tissue disease (19 sources) Fibromyositis; Translations: [Fibromyalgia] Onset: 11-01-2023 01-05-2016 Episodic Other connective tissue disease (1 source) Fibromyalgia; Translations: [FIBROMYALGIA] Onset: 09-10-2022 Episodic Other connective tissue disease (9 sources) Spasm of cervical paraspinous muscle; Translations: [Other muscle spasm] Onset: 06-20-2019 11-01-2023 Episodic Other diseases of bladder and urethra (16 sources) Urethral intrinsic sphincter deficiency; 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)] Onset: 11-01-2023 07-16-2022 Episodic Other fractures (20 sources) Compression fracture of lumbar spine; Translations: [Late effect of fracture of spine and trunk without mention of spinal cord lesion] Onset: 06-13-2023 11-01-2023 Episodic Other gastrointestinal disorders (1 source) Other constipation; Translations: [Other constipation] Onset: 10-02-2021 Episodic Other injuries and conditions due to external causes (1 source) History of falling; Translations: [History of falling] Onset: 10-02-2021 Episodic Other nervous system disorders (20 sources) Abnormal gait; Translations: [Abnormality of gait] Onset: 06-13-2023 11-01-2023 Episodic Other nervous system disorders (1 source) Atypical facial pain; Translations: [ATYPICAL FACIAL PAIN] Onset: 06-01-2022 Episodic Other upper respiratory infections (9 sources) Acute upper respiratory infection; Translations: [Acute upper respiratory infection, unspecified] Onset: 02-13-2024 02-13-2024 Episodic Residual codes; unclassified (1 source) Acquired absence of other organs; Translations: [Acquired absence of other organs] Onset: 10-02-2021 Episodic Residual codes; unclassified (9 sources) Harmful pattern of use of nicotine; Translations: [Tobacco use] Onset: 06-20-2019 11-01-2023 Episodic Residual codes; unclassified (10 sources) Edema of lower extremity; Translations: [Localized [...] sources) compression fractures 10-27-2011 Urinary tract infections (11 sources) Urinary tract infection, site not specified; Translations: [Recurrent urinary tract infection] Onset: 05-10-2022 02-13-2024 Episodic Results Test Name Value Interpretation Reference Range Facility CBC AND AUTO DIFFon 10-01-19 ABSOLUTE BASOPHIL 0.1 X10E9/L Normal 0.0-0.2 [facility] Comment on above: Performed By: #### C ALONZO CMP, 3040-3, 48006-5, 56966-1, THYR #### [facility] ([id number]) [address] [place] [address] 47124 ABSOLUTE NEUTROPHIL 8.0 X10E9/L High 1.5-6.6 [facility] Comment on above: Performed By: #### C BCA, CMP, 3040-3, 90538-8, 85810-7, THYR #### [facility] ([id number]) [address] [place] [address] 30577 Basophils/100 WBC (Bld) 0.7 % Normal [facility] Comment on above: Performed By: #### C BCA, CMP, 3040-3, 09563-1, 36873-3, THYR #### [facility] ([id number]) [address] [place] [address] 63350 Eosinophils (Bld) [#/Vol] 0.3 10*3/uL Normal 0.0-0.4 [facility] Comment on above: Performed By: #### C BCA, CMP, 3040-3, , 63066-8, THYR #### [facility] ([id number]) [address] [place] [address] 32167 Eosinophils/100 WBC (Bld) 2.7 % Normal [facility] Comment on above: Performed By: #### C ALONZO, CMP, 3040-3, 08595-9, 34786-3, THYR #### [facility] ([id number]) [address] [place] [address] 39126 Erythrocyte distribution width (RBC) [Ratio] 18.6 % High 11.5-15.0 [facility] Comment on above: Performed By: #### C ALONZO, [facility], 0-3, , 73058-3, THYR #### [facility] ([id number]) [address] [place] [address] 64803 Hematocrit (Bld) [Volume fraction] 47.5 % High 35-47 [facility] Comment on above: Performed By: #### C ALONZO, [facility], 3040-3, , 79618-4, THYR #### [facility] ([id number]) [address] [place] [address] 22586 Hemoglobin (Bld) [Mass/Vol] 16.6 g/dL High 11.7-15.5 [facility] Comment on above: Performed By: #### Elenita ROSADO, CMP, 3040-3, , 22671-9, THYR #### [facility] ([id number]) [address] [place] [address] 09866 Lymphocytes (Bld) [#/Vol] 3.8 10*3/uL High 1.0-3.5 [facility] Comment on above: Performed By: #### Elenita ROSADO, CMP, 3040-3, 23106-6, 81774-5, THYR #### [facility] ([id number]) [address] [place] [address] 10810 Lymphocytes/100 WBC (Bld) 29.6 % Normal [facility] Comment on above: Performed By: #### C ALONZO, CMP, 3040-3, 25918-6, 62653-3, THYR #### [facility] ([id number]) [address] [place] [address] 43737 MCH (RBC) [Entitic mass] 29.4 pg Normal 27-34 [facility] Comment on above: Performed By: #### C ALONZO, CMP, 0-3, 49834-7, 03481-7, THYR #### [facility] ([id number]) [address] [place] [address] 13792 MCHC (RBC) [Mass/Vol] 34.9 g/dL Normal 32-36 [facility] Comment on above: Performed By: #### C ALONZO, CMP, 0-3, , 98170-7, THYR #### [facility] ([id number]) [address] [place] [address] 91516 MCV (RBC) [Entitic vol] 84 fL Normal 80-100 [facility] Comment on above: Performed By: #### C ALONZO, CMP, 0-3, , 38226-5, THYR #### [facility] ([id number]) [address] [place] [address] 83869 Monocytes (Bld) [#/Vol] 0.6 10*3/uL Normal 0-0.9 [facility] Comment on above: Performed By: #### C BCA, CMP, 3040-3, , 51311-2, THYR #### [facility] ([id number]) [address] [place] [address] 56667 Monocytes/100 WBC (Bld) 4.6 % Normal [facility] Comment on above: Performed By: #### C BCA, CMP, 3040-3, 25219-0, 44948-5, THYR #### [facility] ([id number]) [address] [place] [address] 77968 Neutrophils/100 WBC (Bld) 62.4 % Normal [facility] Comment on above: Performed By: #### C BCA, CMP, 3040-3, 70434-0, 95057-4, THYR #### [facility] ([id number]) [address] [place] [address] 74544 Platelet mean volume (Bld) [Entitic vol] 8.2 fL Normal 7-12 [facility] Comment on above: Performed By: #### C BCA, CMP, 3040-3, 02041-1, 71355-8, THYR #### [facility] ([id number]) [address] [place] [address] 14276 Platelets (Bld) [#/Vol] 296 10*3/uL Normal 150-450 [facility] Comment on above: Performed By: #### C BCA, CMP, 3040-3, 68158-8, 38306-1, THYR #### [facility] ([id number]) [address] [place] [address] 36917 RBC COUNT 5.64 X10E12/L High 3.80-5.20 [facility] Comment on above: Performed By: #### C BCA, CMP, 3040-3, 73221-1, 44926-6, THYR #### [facility] ([id number]) [address] [place] [address] 96316 WBC (Bld) [#/Vol] 12.9 10*3/uL High 4.0-11.0 [facility] Comment on above: Performed By: #### Elenita BCA, CMP, 3040-3, 06162-6, 85039-8, THYR #### [facility] ([id number]) [address] [facility] [place] [facility] [place] [address] CBC auto differentialon 09-06 Basophils (Bld) [#/Vol] 0.1 10*3/uL [facility] Basophils/100 WBC (Bld) 0.7 % [facility] Eosinophils (Bld) [#/Vol] 0.3 10*3/uL [facility] Eosinophils/100 WBC (Bld) 2.7 % [facility] Erythrocyte distribution width (RBC) [Ratio] 18.6 % High 11.5 - 15.0 % [facility] Hematocrit (Bld) [Volume fraction] 47.5 % High 35 - 47 % [facility] Hemoglobin (Bld) [Mass/Vol] 16.6 g/dL High 11.7 - 15.5 g/dL [facility] Interpretation and review of laboratory results Abnormal [facility] Lymphocytes (Bld) [#/Vol] 3.8 10*3/uL High [facility] Lymphocytes/100 WBC (Bld) 29.6 % [facility] MCH (RBC) [Entitic mass] 29.4 pg 27 - 34 pg [facility] MCHC (RBC) [Mass/Vol] 34.9 g/dL 32 - 3 6 g/dL [facility] MCV (RBC) [Entitic vol] 84 fL 80 - 100 fL [facility] Monocytes (Bld) [#/Vol] 0.6 10*3/uL [facility] Monocytes/100 WBC (Bld) 4.6 % [facility] Neutrophils (Bld) [#/Vol] 8 10*3/uL High [facility] Neutrophils/100 WBC (Bld) 62.4 % [facility] Platelet mean volume (Bld) [Entitic vol] 8.2 fL 7 - 12 fL [facility] Platelets (Bld) [#/Vol] 296 10*3/uL [facility] RBC (Bld) [#/Vol] 5.64 10*6/uL High [facility] WBC corrected for nucl RBC Auto (Bld) [#/Vol] 12.9 High [facility] COMPREHENSIVE METABOLIC PANE Geoff 10-01-2024 Albumin [Mass/Vol] 5.0 g/dL Normal 3.2-5.3 [facility] Comment on above: Performed By: #### C BCA, CMP, 3040-3, 90455-7, 92566-5, THYR #### [facility] ([id number]) [address] [place] [address] 79773 ALP [Catalytic activity/Vol] 173 U/L High 39-130 [facility] Comment on above: Performed By: #### C BCA, CMP, 3040-3, 99873-0, 47398-0, THYR #### [facility] ([id number]) [address] [place] [address] 09563 ALT [Catalytic activity/Vol] 21 U/L Normal 0-31 [facility] Comment on above: Performed By: #### C BCA, CMP, 3040-3, 79058-4, 26042-8, THYR #### [facility] ([id number]) [address] [place] [address] 35375 Anion gap [Moles/Vol] 10 mmol/L Normal 5-15 [facility] Comment on above: Performed By: #### C BCA, CMP, 3040-3, 28527-0, 59899-8, THYR #### [facility] ([id number]) [address] [place] [address] 99846 AST [Catalytic activity/Vol] 38 U/L Normal 0-41 [facility] Comment on above: Performed By: #### C BCA, CMP, 3040-3, 86134-4, 60478-3, THYR #### [facility] ([id number]) [address] [place] [address] 35313 Bilirubin [Mass/Vol] 1.2 mg/dL Normal 0.3-1.2 [facility] Comment on above: Performed By: #### C BCA, CMP, 3040-3, 63296-9, 42299-0, THYR #### [facility] ([id number]) [address] [place] [address] 95274 Calcium [Mass/Vol] 9.8 mg/dL Normal 8.5-10.5 [facility] Comment on above: Performed By: #### C BCA, CMP, 3040-3, 93542-4, 26277-4, THYR #### [facility] ([id number]) [address] [place] [address] 06778 Chloride [Moles/Vol] 100 mmol/L Normal 98-109 [facility] Comment on above: Performed By: #### C BCA, CMP, 3040-3, 93553-0, 69018-8, THYR #### [facility] ([id number]) [address] [place] [address] 39793 CO2 [Moles/Vol] 26 mmol/L Normal 22-32 [facility] Comment on above: Performed By: #### C BCA, CMP, 3040-3, 74957-0, 88949-0, THYR #### [facility] ([id number]) [address] [place] [address] 08875 Creatinine [Mass/Vol] 0.81 mg/dL Normal 0.40-1.00 [facility] Comment on above: Result Comment: METH OD TRACEABLE TO IDMS STANDARD Performed By: #### C BCA, CMP, 3040-3, 83836-5, 44719-2, THYR #### [facility] ([id number]) [address] [place] [address] 72375 GFR/1.73 sq M.predicted among non-blacks MDRD (S/P/Bld) [Vol rate/Area] 88 mL/min/{1.73_m2} Normal >59 [facility] Comment on above: Result Comment: Reported eGFR is based on the CKD-EPI 2020 equation that does not use a race coefficient. Performed By: #### C BCA, CMP, 3040-3, 85871-8, 42205-2, THYR #### [facility] ([id number]) [address] [place] [address] 17892 Glucose [Mass/Vol] 103 mg/dL High 65-99 [facility] Comment on above: Performed By: #### C BCA, CMP, 3040-3, 49041-4, 81921-7, THYR #### [facility] ([id number]) [address] [place] [address] 07988 Potassium [Moles/Vol] 3.4 mmol/L Low 3.5-5.0 [facility] Comment on above: Performed By: #### C BCA, CMP, 3040-3, 01038-4, 68117-4, THYR #### [facility] ([id number]) [address] [place] [address] 15572 Protein [Mass/Vol] 9.3 g/dL High 6.0-8.0 [facility] Comment on above: Performed By: #### C BCA, CMP, 3040-3, 04307-2, 07573-7, THYR #### [facility] ([id number]) [address] [place] [address] 48113 Sodium [Moles/Vol] 136 mmol/L Normal 134-146 [facility] Comment on above: Performed By: #### C BCA, CMP, 3040-3, 63736-7, 25913-5, THYR #### [facility] ([id number]) [address] [place] [address] 51745 Urea nitrogen [Mass/Vol] 8 mg/dL Normal 5-23 [facility] Comment on above: Performed By: #### C BCA, CMP, 3040-3, 30526-6, 24249-3, THYR #### [facility] ([id number]) [address] [place] [address], [place] [address] CT LUMBAR SPINE WO CONTon CT LUMBAR SPINE WO CONT CT LUMBAR SPINE WO CONT EXAM: CT SCAN OF THE LUMBAR SPINE WITHOUT CONTRAST CLINICAL INFORMATION: Low back pain, symptoms persist with > 6 wks treatment; Patient reports chronic history of back pain, worsening from baseline, states previous surgical interventions, paraplegic at baseline/Alvares catheter. TECHNIQUE: CT lumbar spine performed without contrast with axial, coronal and sagittal images. Automated exposure control utilized. COMPARISON: CT dated 08/18/2015 FINDINGS: The lumbar spine maintains a normal lordotic curvature. There is redemonstration of a chronic moderate T12 compression fracture with minimal 0.4 cm dorsal retropulsion barely flattening the ventral aspect of the thecal sac. There is chronic minimal compression involving the superior endplate of L1, L2, and L3. There is no evidence for an acute displaced fracture. There are pulsatile changes compatible with interval extensive thoracolumbar spinal fusion. Posterior spinal fusion is seen extending from T4 on the CT of the thoracic spine to L5. There is no evidence for hardware complications or failure. There is no evidence for a screw fracture. There is chronic minimal degenerative retrolisthesis of L4 on L5 with a slight disc bulge and endplate osteophyte complex. There is no significant loss of the disc space heights in the lumbar spine. The limited visualized abdominal contents and a straight changes of cholelithiasis. The urinary catheter is present. IMPRESSION: 1. No evidence for an acute displaced fracture of the lumbar spine. 2. Stable chronic moderate T12 compression fracture with minimal 0.4 cm dorsal retropulsion barely flattening thecal sac. Stable chronic minimal compression involving superior endplate of L1-L3. 3. Extensive interval postsurgical changes of the thoracolumbar spine status post posterior spinal fusion extending to S1. There is no convincing radiographic evidence for hardware complications or failure. All CT scans at this facility use dose modulation, iterative reconstruction, and/or weight based dosing when appropriate to reduce radiation dose to as low as reasonably achievable. Finalized by Balbir Finney MD on 10/01/2024 1:05 AM Normal [facility] CT Lumbar spine WO contrasto n 10-01-2024 EXAM: CT SCAN OF THE LUMBAR SPINE WITHOUT CONTRAST CLINICAL INFORMATION: Low back pain, symptoms persist with > 6 wks treatment; Patient reports chronic history of back pain, worsening from baseline, states previous surgical interventions, paraplegic at baseline/Alvares catheter. TECHNIQUE: CT lumbar spine performed without contrast with axial, coronal and sagittal images. Automated exposure control utilized. COMPARISON: CT dated 08/18/2015 FINDINGS: The lumbar spine maintains a normal lordotic curvature. There is redemonstration of a chronic moderate T12 compression fracture with minimal 0.4 cm dorsal retropulsion barely flattening the ventral aspect of the thecal sac. There is chronic minimal compression involving the superior endplate of L1, L2, and L3. There is no evidence for an acute displaced fracture. There are pulsatile changes compatible with interval extensive thoracolumbar spinal fusion. Posterior spinal fusion is seen extending from T4 on the CT of the thoracic spine to L5. There is no evidence for hardware complications or failure. There is no evidence for a screw fracture. There is chronic minimal degenerative retrolisthesis of L4 on L5 with a slight disc bulge and endplate osteophyte complex. There is no significant loss of the disc space heights in the lumbar spine. The limited visualized abdominal contents and a straight changes of cholelithiasis. The urinary catheter is present. IMPRESSION: 1. No evidence for an acute displaced fracture of the lumbar spine. 2. Stable chronic moderate T12 compression fracture with minimal 0.4 cm dorsal retropulsion barely flattening thecal sac. Stable chronic minimal compression involving superior endplate of L1-L3. 3. Extensive interval postsurgical changes of the thoracolumbar spine status post posterior spinal fusion extending to S1. There is no convincing radiographic evidence for hardware complications or failure. All CT scans at this facility use dose modulation, iterative reconstruction, and/or weight based dosing when appropriate to reduce radiation dose to as low as reasonably achievable. Finalized by Balbir Finney MD on 10/01/2024 1:05 AM [facility] Balbir Finney MD - 10/01/2024 EXAM: CT SCAN OF THE LUMBAR SPINE WITHOUT CONTRAST CLINICAL INFORMATION: Low back pain, symptoms persist with > 6 wks treatment; Patient reports chronic history of back pain, worsening from baseline, states previous surgical interventions, paraplegic at baseline/Alvares catheter. TECHNIQUE: CT lumbar spine performed without contrast with axial, coronal and sagittal images. Automated exposure control utilized. COMPARISON: CT dated 08/18/2015 FINDINGS: The lumbar spine maintains a normal lordotic curvature. There is redemonstration of a chronic moderate T12 compression fracture with minimal 0.4 cm dorsal retropulsion barely flattening the ventral aspect of the thecal sac. There is chronic minimal compression involving the superior endplate of L1, L2, and L3. There is no evidence for an acute displaced fracture. There are pulsatile changes compatible with interval extensive thoracolumbar spinal fusion. Posterior spinal fusion is seen extending from T4 on the CT of the thoracic spine to L5. There is no evidence for hardware complications or failure. There is no evidence for a screw fracture. There is chronic minimal degenerative retrolisthesis of L4 on L5 with a slight disc bulge and endplate osteophyte complex. There is no significant loss of the disc space heights in the lumbar spine. The limited visualized abdominal contents and a straight changes of cholelithiasis. The urinary catheter is present. IMPRESSION: 1. No evidence for an acute displaced fracture of the lumbar spine. 2. Stable chronic moderate T12 compression fracture with minimal 0.4 cm dorsal retropulsion barely flattening thecal sac. Stable chronic minimal compression involving superior endplate of L1-L3. 3. Extensive interval postsurgical changes of the thoracolumbar spine status post posterior spinal fusion extending to S1. There is no convincing radiographic evidence for hardware complications or failure. All CT scans at this facility use dose modulation, iterative reconstruction, and/or weight based dosing when appropriate to reduce radiation dose to as low as reasonably achievable. Finalized by Balbir Finney MD on 10/01/2024 1:05 AM [employer] Radiology Study observation (narrative) [facility] CT Lumbar spine WO contrastO rdered By: Balbir Finney on 10-01-2024 [employer] Work Phone: CT THORACIC SPINE WO CONTon 10-01-2024 CT THORACIC SPINE WO CONT CT THORACIC SPINE WO CONT *ADDENDUM*ADDENDUM: Fusion of the thoracolumbar spine is seen extending to S1 on the dedicated CT of the lumbar spine also performed on 10/01/2024. Impression: See above. Finalized by Balbir Finney MD on 10/01/2024 1:05 AM Normal [facility] CT Thoracic spine WO emma ton 10-01-2024 Addendum by Balbir Finney MD on 10/01/2024 1:05 AM EST *ADDENDUM*ADDENDUM: Fusion of the thoracolumbar spine is seen extending to S1 on the dedicated CT of the lumbar spine also performed on 10/01/2024. Impression: See above. Finalized by Balbir Finney MD on 10/01/2024 1:05 AM [facility] EXAM: CT THORACIC SP INE WITHOUT CONTRAST CLINICAL INFORMATION: Mid-back pain; Worsening mid back pain, reports chronic history of issues with the back, worsening from baseline, evaluation for acute changes/abnormalities. TECHNIQUE: CT thoracic spine performed without contrast with axial, coronal and sagittal images. Automated exposure control utilized. COMPARISON: CT myelogram dated 08/18/2015, CT of the lumbar spine dated 10/01/2024 FINDINGS: Stable appearance of a chronic moderate T12 compression fracture with mild 0.4 cm dorsal retropulsion. Stable appearance of chronic mild compression of a superior endplates of the adjacent lung, L2, and L3 vertebral bodies. There are postsurgical changes compatible with interval extensive postsurgical changes of the thoracic and lumbar spine status post multilevel laminectomies and posterior spinal fusion spanning T4-L2. There is no convincing evidence for hardware complications or failure. There is no evidence for a screw fracture. There is no significant loss of the vertebral body heights. There is no evidence for an acute displaced fracture. There is incidental visualization of C5-6 anterior cervical spinal fusion. The visualized portions of the chest are unremarkable. There are changes of cholecystectomy. IMPRESSION: 1. No evidence for an acute displaced fracture in the thoracic spine. 2. Stable chronic moderate T12 compression fracture with approximately 0.4 cm minimal dorsal retropulsion flattening thecal sac. There is also incidental visualization of chronic minimal compression involving the adjacent superior endplate of L1, L2, and L3. The remaining thoracic vertebral body heights are normal. 3. Postsurgical changes compatible with interval multilevel laminectomies and posterior spinal fusion spanning T4-L2. There is no convincing radiographic evidence for hardware complications or failure. 4. Incidental visualization of C5-6 anterior cervical spinal fusion. All CT scans at this facility use dose modulation, iterative reconstruction, and/or weight based dosing when appropriate to reduce radiation dose to as low as reasonably achievable. Finalized by Balbir Finney MD on 10/01/2024 1:01 AM [facility] Balbir Finney MD - 10/01/2024 EXAM: CT THORACIC SPINE WITHOUT CONTRAST CLINICAL INFORMATION: Mid-back pain; Worsening mid back pain, reports chronic history of issues with the back, worsening from baseline, evaluation for acute changes/abnormalities. TECHNIQUE: CT thoracic spine performed without contrast with axial, coronal and sagittal images. Automated exposure control utilized. COMPARISON: CT myelogram dated 08/18/2015, CT of the lumbar spine dated 10/01/2024 FINDINGS: Stable appearance of a chronic moderate T12 compression fracture with mild 0.4 cm dorsal retropulsion. Stable appearance of chronic mild compression of a superior endplates of the adjacent lung, L2, and L3 vertebral bodies. There are postsurgical changes compatible with interval extensive postsurgical changes of the thoracic and lumbar spine status post multilevel laminectomies and posterior spinal fusion spanning T4-L2. There is no convincing evidence for hardware complications or failure. There is no evidence for a screw fracture. There is no significant loss of the vertebral body heights. There is no evidence for an acute displaced fracture. There is incidental visualization of C5-6 anterior cervical spinal fusion. The visualized portions of the chest are unremarkable. There are changes of cholecystectomy. IMPRESSION: 1. No evidence for an acute displaced fracture in the thoracic spine. 2. Stable chronic moderate T12 compression fracture with approximately 0.4 cm minimal dorsal retropulsion flattening thecal sac. There is also incidental visualization of chronic minimal compression involving the adjacent superior endplate of L1, L2, and L3. The remaining thoracic vertebral body heights are normal. 3. Postsurgical changes compatible with interval multilevel laminectomies and posterior spinal fusion spanning T4-L2. There is no convincing radiographic evidence for hardware complications or failure. 4. Incidental visualization of C5-6 anterior cervical spinal fusion. All CT scans at this facility use dose modulation, iterative reconstruction, and/or weight based dosing when appropriate to reduce radiation dose to as low as reasonably achievable. Finalized by Balbir Finney MD on 10/01/2024 1:01 AM [facility] Radiology Study observation (narrative) [facility] Comprehensive metabolic pane geoff 10-01-2024 Albumin [Mass/Vol] 5 g/dL 3.2 - 5.3 g/dL [facility] ALP [Catalytic activity/Vol] 173 U/L High 39 - 130 U/L [facility] ALT No additional P-5'-P [Catalytic activity/Vol] 21 U/L 0 - 31 U/L [facility] Anion gap [Moles/Vol] 10 mmol/L 5 - 15 mmol/L [facility] AST [Catalytic activity/Vol] 38 U/L 0 - 41 U/L [facility] Bilirubin [Mass/Vol] 1.2 mg/dL 0.3 - 1 .2 mg/dL [facility] Calcium [Mass/Vol] 9.8 mg/dL 8.5 - 10. 5 mg/dL [facility] Chloride [Moles/Vol] 100 mmol/L 98 - 10 9 mmol/L [facility] CO2 [Moles/Vol] 26 mmol/L 22 - 32 mmol/L [facility] Creatinine [Mass/Vol] 0.81 mg/dL 0.40 - 1.00 mg/dL [facility] Comment on above: METHOD TRACEABLE TO [facility] STANDARD eGFR (CKD-EPI)non-race dependent 88 - PINF [facility] Comment on above: Reported eGFR is based on the CKD-EPI 2020 equation that does not use a race coefficient. Glucose [Mass/Vol] 103 mg/dL High 65 - 99 mg/dL [facility] Interpretation and review of laboratory results Abnormal [facility] Potassium [Moles/Vol] 3.4 mmol/L Low 3.5 - 5.0 mmol/L [facility] Protein [Mass/Vol] 9.3 g/dL High 6.0 - 8.0 g/dL [facility] Sodium [Moles/Vol] 136 mmol/L 134 - 146 mmol/L [facility] Urea nitrogen [Mass/Vol] 8 mg/dL 5 - 23 mg/dL [facility] LIPASEon 10-01-2024 Lipase [Catalytic activity/Vol] 30 U/L Normal 17-40 [facility] Comment on above: Performed By: #### C ALONZO, CMP, 3040-3, 46120-7, 79065-7, THYR #### [facility] ([id number]) [address] [place] [address] Laboratory - Microbiology an d Antimicrobial susceptibilityon 10-01-2024 FLUAV+FLUBV RNA ADRIÁN+probe Ql (Unsp spec) Negative Negative^N egative [facility] Lipaseon 10-01-2024 Lipase [Catalytic activity/Vol] 30 U/L 17 - 40 U/L [facility] Lipase [Catalytic activity/V ol]on 10-01-2024 [facility] MAGNESIUMon 10-01-2024 Magnesium [Mass/Vol] 2.0 mg/dL Normal 1.8-2.6 [facility] Comment on above: Performed By: #### C ALONZO, CMP, 3040-3, 04628-0, 79016-0, THYR #### [facility] ([id number]) [address] [place] [address] 1960[address] Magnesiumon 10-01-2024 Magnesium [Mass/Vol] 2 mg/dL 1.8 - 2 .6 mg/dL [facility] No Panel Informationon 10-01 [facility] SARS/FLU A+B/RSV by NAAT/Mol ecularon 10-01-2024 SARS/FLU A+B/RSV by NAAT/Molecular FLU A PCR Negative (qualifier value) FLU B PCR Negative (qualifier value) RSV by PCR Negative (qualifier value) SARS CoV 2 Not detected (qualifier value) NOTE The Xpert Xpress SARS-CoV-2/Flu/RSV Plus test is a rapid, multiplexed real-time RT-PCR test intended for the simultaneous qualitative detection and differentiation of SARS-CoV-2, influenza A, influenza B and respiratory syncytial virus (RSV) viral RNA from individuals suspected of respiratory viral infection consistent with COVID-19 by their healthcare provider. This test has not been validated in asymptomatic patients. The Xpert Xpress SARS-CoV-2 test is intended for use by qualified and trained operators who are performing tests using either [employer] or [employer] systems and is limited to laboratories that meet the CLIA requirements to perform high and moderate complexity tests. The Xpert Xpress SARS-CoV-2/Flu/RSV Plus is only for use under the Food and Drug Administration's Emergency Use Authorization. Results are for the simultaneous detection and differentiation of SARS-CoV-2, influenza A, influenza B and RSV nucleic acids in clinical specimens. SARS-CoV-2, influenza A, influenza B and RSV RNA identified by this test are generally detectable in upper respiratory samples during the acute phase of infection. Positive results are indicative of the presence of the identified virus, but do not rule out bacterial infection or co-infection with other pathogens not detected by this test. Clinical correlation with patient history and other diagnostic information is necessary to determine patient infection status. The agent detected may not be the definite cause of disease. Negative results do not preclude SARS-CoV-2, influenza A, influenza B and RSV infection and should not be used as the sole basis for treatment or other patient management decisions. Negative results must be combined with clinical observations, patient history and epidemiological information. An Invalid result may occur with specimen-associated inhibition unable to be resolved with specimen repeat. Fact Sheet for Healthcare Providers: https://www.fda.gov/media /675542/download Fact Sheet for Patients: https://www.fda.gov/media /100260/download Normal [facility] SARS/FLU A+B/RSV by NAAT/Mol ecular (M4RT Collection Tube)on 10-01-2024 RSV RNA ADRÁIN+probe Nom (Unsp spec) Negative Negative^N egative [facility] SARS-CoV-2 (COVID-19) RNA ADRIÁN+probe Ql (Resp) Not detected Not Detected^N ot Detected [facility] Comment on above: NOTE The Xpert Xpress SARS-CoV-2/Flu/RSV Plus test is a rapid, multiplexed real-time RT-PCR test intended for the simultaneous qualitative detection and differentiation of SARS-CoV-2, influenza A, influenza B and respiratory syncytial virus (RSV) viral RNA from individuals suspected of respiratory viral infection consistent with COVID-19 by their healthcare provider. This test has not been validated in asymptomatic patients. The Xpert Xpress SARS-CoV-2 test is intended for use by qualified and trained operators who are performing tests using either [employer] or [employer] systems and is limited to laboratories that meet the CLIA requirements to perform high and moderate complexity tests. The Xpert Xpress SARS-CoV-2/Flu/RSV Plus is only for use under the Food and Drug Administration's Emergency Use Authorization. Results are for the simultaneous detection and differentiation of SARS-CoV-2, influenza A, influenza B and RSV nucleic acids in clinical specimens. SARS-CoV-2, influenza A, influenza B and RSV RNA identified by this test are generally detectable in upper respiratory samples during the acute phase of infection. Positive results are indicative of the presence of the identified virus, but do not rule out bacterial infection or co-infection with other pathogens not detected by this test. Clinical correlation with patient history and other diagnostic information is necessary to determine patient infection status. The agent detected may not be the definite cause of disease. Negative results do not preclude SARS-CoV-2, influenza A, influenza B and RSV infection and should not be used as the sole basis for treatment or other patient management decisions. Negative results must be combined with clinical observations, patient history and epidemiological information. An Invalid result may occur with specimen-associated inhibition unable to be resolved with specimen repeat. Fact Sheet for Healthcare Providers: https://www.fda.gov/media/372097/download Fact Sheet for Patients: https://www.fda.gov/media/078525/download [facility] THYROID PROFILEon 10-01-2024 Free T4 [Mass/Vol] 1.14 ng/dL Normal 0.61-1.60 [facility] Comment on above: Performed By: #### C ALONZO [facility], 3040-3, 51354-6, 99291-1, THYR #### [facility] ([id number]) [address] [place] [address]6583 TSH 3.02 uIU/mL Normal 0.49-4.67 [facility] Comment on above: Performed By: #### C DARIUS ROSADO, 3040-3, 76755-6, 96807-8, THYR #### [facility] ([id number]) [address] [place] [address] Thyroid profile includes TSH FT4on 10-01-2024 Free T4 [Mass/Vol] 1.14 ng/dL 0.61 - 1.60 ng/dL [facility] TSH Qn 3.02 m[IU]/L [facility] Troponin I, High Sensitivity on 10-01-2024 Troponin I.cardiac High sensitivity method [Mass/Vol] ng/L NINF - 16 ng/L [facility] Troponin I, High Sensitivity 1 Houron 10-01-2024 Troponin I.cardiac High sensitivity method [Mass/Vol] ng/L NINF - 16 ng/L [facility] Troponin I.cardiac High sens itivity method [Mass/Vol]on 10-01-2024 [facility] 1 HOUR TROP I, HIGH SENSITIVITY <2 Normal <16 [facility] Comment on above: Performed By: #### C BCA, CMP, 3040-3, 90869-0, 36111-6, THYR #### [facility] ([id number]) [address] [place] [address] TROPONIN I, HIGH SENSITIVITY <2 Normal <16 [facility] Comment on above: Performed By: #### C BCA, CMP, 3040-3, 89830-1, 16190-3, THYR #### [facility] ([id number]) [address] [place] [address]61 URINALYSISon 10-01-2024 Bilirubin Ql (U) Negative Normal NEG [facility] Comment on above: Performed By: #### C BCA, CMP, 3040-3, 07791-4, 11157-3, THYR #### [facility] ([id number]) [address] [place] [address]677 BLOOD/HGB Trace Abnormal NEG [facility] Comment on above: Performed By: #### C BCA, CMP, 3040-3, 41330-5, 85994-4, THYR #### [facility] ([id number]) [address] [place] [address] 65862 Color (U) YELLOW Normal YELLOW [facility] Comment on above: Performed By: #### C BCA, CMP, 3040-3, 34637-8, 34946-9, THYR #### [facility] ([id number]) [address] [place] [address] 82815 Glucose Ql (U) Negative Normal NEG [facility] Comment on above: Performed By: #### C BCA, CMP, 3040-3, 29097-8, 17695-5, THYR #### [facility] ([id number]) [address] [place] [address] 73460 Ketones Ql (U) Negative Normal NEG [facility] Comment on above: Performed By: #### C BCA, CMP, 3040-3, 94667-4, 16639-2, THYR #### [facility] ([id number]) [address] [place] [address] 61196 Leukocyte esterase Test strip Ql (U) SMALL Abnormal NEG [facility] Comment on above: Performed By: #### C BCA, CMP, 3040-3, 67945-5, 37570-9, THYR #### [facility] ([id number]) [address] [place] [address] 24541 Nitrite Ql (U) Negative Normal NEG [facility] Comment on above: Performed By: #### C BCA, CMP, 3040-3, 97469-1, 85001-7, THYR #### [facility] ([id number]) [address] [place] [address] 44895 pH (U) 6.0 [pH] Normal 5.0-8.5 [facility] Comment on above: Performed By: #### C BCA, CMP, 3040-3, 89631-5, 10800-8, THYR #### [facility] ([id number]) [address] [place] [address] 62060 Protein Ql (U) Negative Normal NEG [facility] Comment on above: Performed By: #### C BCA, CMP, 3040-3, 60869-9, 34997-9, THYR #### [facility] ([id number]) [address] [place] [address] 79345 R.B.CELLS 1 /hpf Normal 0-5 [facility] Comment on above: Performed By: #### C BCA, CMP, 3040-3, 46830-3, 49790-4, THYR #### [facility] ([id number]) [address] [place] [address] 13214 Specific gravity (U) [Rel density] <1.005 Normal 1.003-1.[address] [place] [address] Comment on above: Performed By: #### C BCA, CMP, 3040-3, 55679-0, 47843-1, THYR #### [facility] ([id number]) [address] [place] [address] 97453 SQUAMOUS EPITHELIUM 1 /hpf Normal 0-5 [facility] Comment on above: Performed By: #### C BCA, CMP, 3040-3, 51490-6, 78753-3, THYR #### [facility] ([id number]) [address] [place] [address] 71848 TURBIDITY CLEAR Normal CLEAR [facility] Comment on above: Performed By: #### C BCA, CMP, 3040-3, 33902-0, 24984-0, THYR #### [facility] ([id number]) [address] [place] [address] 49274 Urobilinogen Qn (U) 0.2 {Tesha'U}/dL Normal <1.1 [facility] Comment on above: Performed By: #### C BCA, CMP, 3040-3, 91201-4, 49781-9, THYR #### [facility] ([id number]) [address] [place] [address] 32470 W.B.CELLS 2 /hpf Normal 0-5 [facility] Comment on above: Performed By: #### C ALONZO, DARIUS, 3040-3, 74684-5, 85703-0, THYR #### [facility] ([id number]) [address] [place] [address] 12142 URINE CULTUREon 10-01-2024 Bacteria identified Cx Nom (U) CULTURE RESULTS 10-50,000 ORGANISMS/mL NORMAL UROGENITAL ROSANNA Normal [facility] Comment on above: Performed By: #### C ALONZO, [facility], 3040-3, 45735-5, 29741-7, THYR #### [facility] ([id number]) [address] [place] [address] 33452 Urinalysison 10-01-2024 Bilirubin Ql (U) Negative Negative^N egative [facility] Color (U) YELLOW YELLOW^YEL LOW [facility] Epithelial cells Auto (Urine sed) [#/Area] 1 [facility] Glucose (U) [Mass/Vol] Negative Negat latisha^N egative mg/dL [facility] Hemoglobin Auto test strip Ql (U) Trace Abnormal Negative^N egative [facility] Interpretation and review of laboratory results Abnormal [facility] Ketones (U) [Mass/Vol] Negative Negat latisha^N egative mg/dL [facility] Leukocyte esterase Auto test strip Ql (U) SMALL Abnormal Negative^N egative [facility] Nitrite Auto test strip Ql (U) Negative Negative^N egative [facility] pH (U) 6 [pH] 5.0 - 8.5 [facility] Protein (U) [Mass/Vol] Negative Negat latisha^N egative mg/dL [facility] RBC Auto (Urine sed) [#/Area] 1 [facility] Specific gravity Refractometry automated (U) [Rel density] 1.003 - 1.035 [facility] Turbidity Ql (U) CLEAR CLEAR^GUERO R [facility] Urobilinogen Qn (U) 0.2 NINF [facility] WBC Auto (Urine sed) [#/Area] 2 [facility] XR CHEST 1 VWon 10-01-2024 XR CHEST 1 VW XR CHEST 1 VW HISTORY: Chest pain COMPARISON: Chest x-ray 10/25/2014 FINDINGS: AP semiupright view of the chest was performed. Cardiac silhouette is within normal limits. No significant airspace consolidation or vascular congestion. No pleural effusion or pneumothorax. Intact cervical and thoracic fusion hardware. IMPRESSION: * No acute abnormality. Finalized by Sanchez Velazquez MD on 10/01/2024 1:04 AM Normal [facility] XR Chest Single viewon 10-01 HISTORY: Chest pain COMPARISON: Chest x-ray 10/25/2014 FINDINGS: AP semiupright view of the chest was performed. Cardiac silhouette is within normal limits. No significant airspace consolidation or vascular congestion. No pleural effusion or pneumothorax. Intact cervical and thoracic fusion hardware. IMPRESSION: * No acute abnormality. Finalized by Sanchez Velazquez MD on 10/01/2024 1:04 AM [facility] Sanchez Velazquez M D - 10/01/2024 HISTORY: Chest pain COMPARISON: Chest x-ray 10/25/2014 FINDINGS: AP semiupright view of the chest was performed. Cardiac silhouette is within normal limits. No significant airspace consolidation or vascular congestion. No pleural effusion or pneumothorax. Intact cervical and thoracic fusion hardware. IMPRESSION: * No acute abnormality. Finalized by Sanchez Velazquez MD on 10/01/2024 1:04 AM [facility] Radiology Study observation (narrative) [facility] XR Chest Single viewOrdered By: Sanchez Velazquez on 10-01-2024 [facility] Work Phone: Urine Cultureon 09-01-2024 Bacteria identified Cx Nom (U) No Growth 2 Days PERFORMED BY: [facility] [address] [place] [address] PATHOLOGIST LINE ASSEMBLY UTILITY WORKER ISMAEL Forbes [facility] Comment on above: Performed By: #### C UU #### [facility] [address] [place] [address] [facility] COMPLIANCE DRUG ANALYSIS, UR on 05-22-2024 SUMMARY [...] consultation, please call . ======= Performed at: [facility] [address] [id number] [employer] To[employer] Grinding Machine Operator: Neli Kearney [facility], Phone: [phone] Specimen Comment: ToxAssure, ToxAssure FLEX or MAT drug testin Specimen Comment: -Technical component - Data analysis performed at Specimen Comment: [facility] [place], [address] Specimen Comment: [id number]. [phone] [employer] Tooth Grinding Machine Operator James Barrera MD. [facility] [...] N [facility] Outside Recordson 04-24-2024 Outside Records [id number] Normal [facility] Physician Orderon 12-14-2023 Physician Order [id number]#1.00TIFF Normal [facility] ED Note-Physicianon 03-14-20 23 ED Note-Physician [id number]#1.00CD:12 7 Normal [facility] ED Note-Physicianon 01-23-20 23 ED Note-Physician [id number]#1.00CD:12 7 Normal [facility] ED Note-Physician [id number]#1.00CD:12 7 Normal [facility] Lab Reportson 01-22-2023 Lab Reports [id number]#1.00CD:12 7 Normal [facility] Patient Correspondenceon Patient Correspondence [id number]#[id number]:12 7 [facility] CULTURE URINEon 01-16-2023 CULTURE URINE Isolate [...] R F Nitrofurantoin <=16 S F Normal [facility] Comment on above: Performed By: #### U MICRO, ERUR #### [facility] [address] [place] [address] Dr. Alfredo Lizama CBC AUTO DIFFon 01-13-2023 BASO # 0.1 103/ul Normal 0.0-0.1 [facility] Comment on above: Performed By: #### U MICRO, ERUR #### [facility] [address] [place] [address] Dr. Alfredo Lizama Basophils/100 WBC (Bld) 0.7 % Normal 0.2-2.0 [facility] Comment on above: Performed By: #### U MICRO, ERUR #### [facility] [address] [place] [address] Dr. Alfredo Lizama EO # 0.3 103/ul Normal 0.0-0.7 [facility] Comment on above: Performed By: #### U MICRO, ERUR #### [facility] [address] [place] [address] Dr. Alfredo Lizama Eosinophils/100 WBC (Bld) 3.2 % Normal 0.9-7.0 [facility] Comment on above: Performed By: #### U MICRO, ERUR #### [facility] [address] [place] [address] Dr. Alfredo Lizama Erythrocyte distribution width (RBC) [Ratio] 13.0 % Normal 11.0-15.0 [facility] Comment on above: Performed By: #### U MICRO, ERUR #### [facility] [address] [place] [address] Dr. Alfredo Lizama Hematocrit (Bld) [Volume fraction] 43.2 % Normal 36.0-48.0 [facility] Comment on above: Performed By: #### U MICRO, ERUR #### [facility] [address] [place] [address] Dr. Alfredo Lizama Hemoglobin (Bld) [Mass/Vol] 14.1 g/dL Normal 12.0-16.0 [facility] Comment on above: Performed By: #### U MICRO, ERUR #### [facility] [address] [place] [address] Dr. Alfredo Lizama IG # 0.02 10e3/ul Normal 0.00-0.03 [facility] Comment on above: Performed By: #### U MICRO, ERUR #### [facility] [address] [address] [address] Alfredo Lizama IG % 0.2 % Normal 0.0-0.5 [facility] Comment on above: Performed By: #### U MICRO, ERUR #### [facility] [address] [place] [address] Dr. Alfredo Lizama LYMPH # 3.0 103/ul Normal 1.2-3.8 [facility] Comment on above: Performed By: #### U MICRO, ERUR #### [facility] [address] [place] [address] Dr. Alfredo Lizama Lymphocytes/100 WBC (Bld) 35.6 % Normal 20.5-60.0 [facility] Comment on above: Performed By: #### U MICRO, ERUR #### [facility] [address] [place] [address] Dr. Alfredo Lizama MANUAL DIFF REQ NO Normal [facility] Comment on above: Performed By: #### U MICRO, ERUR #### [facility] [address] [place] [address] Dr. Alfredo Lizama MCH (RBC) [Entitic mass] 29.4 pg Normal 26.7-34.0 [facility] Comment on above: Performed By: #### U MICRO, ERUR #### [facility] [address] [place] [address] Dr. Alfredo Lizama MCHC (RBC) [Mass/Vol] 32.6 g/dL Normal 29.9-35.2 [facility] Comment on above: Performed By: #### U MICRO, ERUR #### [facility] [address] [place] [address] Dr. Alfredo Lizama MCV (RBC) [Entitic vol] 90.0 fL Normal 81.0-99.0 [facility] Comment on above: Performed By: #### U MICRO, ERUR #### [facility] [address] [place] [address] Dr. Alfredo Lizama MONO # 0.4 103/ul Normal 0.3-0.8 [facility] Comment on above: Performed By: #### U MICRO, ERUR #### [facility] [address] [place] [address] Dr. Alfredo Lizama Monocytes/100 WBC (Bld) 4.8 % Normal 1.7-12.0 [facility] Comment on above: Performed By: #### U MICRO, ERUR #### [facility] [address] [place] [address] Dr. Alfredo Lizama NEUT # 4.7 103/ul Normal 1.4-6.5 [facility] Comment on above: Performed By: #### U MICRO, ERUR #### [facility] [address] [place] [address] Dr. Alfredo Lizama Neutrophils/100 WBC (Bld) 55.5 % Normal 43.0-75.0 [facility] Comment on above: Performed By: #### U MICRO, ERUR #### [facility] [address] [place] [address] Dr. Alfredo Lizama Platelet mean volume (Bld) [Entitic vol] 9.5 fL Normal 9.5-13.5 [facility] Comment on above: Performed By: #### U MICRO, ERUR #### [facility] [address] [place] [address] Dr. Alfredo Lizama PLT 267 103/ul Normal 150-450 [facility] Comment on above: Performed By: #### U MICRO, ERUR #### [facility] [address] [place] [address] Dr. Alfredo Lizama RBC 4.80 106/ul Normal 4.20-5.40 [facility] Comment on above: Performed By: #### U MICRO, ERUR #### [facility] [address] [place] [address] Dr. Alfredo Lizama WBC 8.5 103/ul Normal 4.0-11.0 [facility] Comment on above: Performed By: #### U MICRO, ERUR #### [facility] [address] [place] [address] Dr. Alfredo Lizama ER URINE PROFILEon 3 Bilirubin Ql (U) Negative Normal NEGATIVE [facility] Comment on above: Performed By: #### E RUR, UMICRO #### [facility] [address] [place] [address] Dr. Alfredo Lizama Clarity (U) CLOUDY Abnormal CLEAR [facility] Comment on above: Performed By: #### CHINMAY CHAVESRO #### [facility] [address] [place] [address] Dr. Alfredo Lizama Color (U) YELLOW Normal YELLOW [facility] Comment on above: Performed By: #### CHINMAY CHAVESRO #### [facility] [address] [place] [address] Dr. Alfredo Lizama ERUAHD A micrscopic examina tion will be performed if indicated. Normal [facility] Comment on above: Performed By: #### CHINMAY CHAVESRO #### [facility] [address] [place] [address] Dr. Alfredo Lizama Glucose Ql (U) Negative Normal NEGATIVE [facility] Comment on above: Performed By: #### CHINMAY CHAVESRO #### [facility] [address] [place] [address] Dr. Alfredo Lizama Hemoglobin Ql (U) MODERATE Abnormal NEGATIVE [facility] Comment on above: Performed By: #### CHINMAY CHAVESRO #### [facility] [address] [place] [address] Dr. Alfredo Lizama Ketones Ql (U) TRACE Abnormal NEGATIVE [facility] Comment on above: Performed By: #### CHINMAY CHAVESRO #### [facility] [address] [place] [address] Dr. Alfredo Lizama LEUKOCYTES SMALL Abnormal NEGATIVE [facility] Comment on above: Performed By: #### FER CHAVESICRO #### [facility] [address] [place] [address] Dr. Alfredo Lizama Nitrite Ql (U) Negative Normal NEGATIVE [facility] Comment on above: Performed By: #### CHINMAY CHAVESRO #### [facility] [address] [place] [address] Dr. Alfredo Lizama pH (U) 8.0 [pH] Normal 5-9 [facility] Comment on above: Performed By: #### E SEAN UMICRO #### [facility] [address] [place] [address] Dr. Alfredo Lizama Protein (U) [Mass/Vol] 100 mg/dL Abnormal NEGAT LATISHA/ TRACE [facility] Comment on above: Performed By: #### E RUEsther, UMICRO #### [facility] [address] [place] [address] Dr. Alfredo Lizama SPEC GRAVITY 1.015 Normal 1.005-<=1. 025 [facility] Comment on above: Performed By: #### E SEAN UMICRO #### [facility] [address] [place] [address] Dr. Alfredo Lizama UR MICRO IND INDICATED Normal [facility] Comment on above: Performed By: #### E SEAN UMICRO #### [facility] [address] [place] [address] Dr. Alfredo Lizama Urobilinogen Qn (U) 1.0 {Tesha'U}/dL Normal 0.2 - 1. 0 [facility] Comment on above: Performed By: #### Jacque ESTRADA UMICRO #### [facility] [address] [place] [address] Dr. Alfredo Lizama PROF CHEM 8 (BAS METB)on Anion gap [Moles/Vol] 8.4 mmol/L Normal [facility] Comment on above: Performed By: #### U MICRO, ERUR #### [facility] [address] [place] [address] Dr. Alfredo Lizama Calcium [Mass/Vol] 8.7 mg/dL Normal 8.5-10.1 [facility] Comment on above: Performed By: #### U MICRO, ERUR #### [facility] [address] [place] [address] Dr. Alfredo Lizama Chloride [Moles/Vol] 107 mmol/L Normal 98-107 [facility] Comment on above: Performed By: #### U MICRO, ERUR #### [facility] [address] [place] [address] Dr. Alfredo Lizama CO2 [Moles/Vol] 28.3 mmol/L Normal 21.0-32.0 [facility] Comment on above: Performed By: #### U MICRO, ERUR #### [facility] [address] [address] [address] Alfredo Lizama Creatinine [Mass/Vol] 0.70 mg/dL Normal 0.55-1.02 [facility] Comment on above: Performed By: #### U MICRO, ERUR #### [facility] [address] [place] [address] Dr. Alfredo Lizama EGFR-AF POLISH >60 Normal >=60 [facility] Comment on above: Performed By: #### U MICRO, ERUR #### [facility] [address] [place] [address] Dr. Alfredo Lizama EGFR-NON AF POLISH >60 Normal >=60 [facility] Comment on above: Performed By: #### U MICRO, ERUR #### [facility] [address] [address] [address] Alfredo Lizama Glucose [Mass/Vol] 97 mg/dL Normal 74-106 [facility] Comment on above: Performed By: #### U MICRO, ERUR #### [facility] [address] [address] [address] Alfredo Lizama Potassium [Moles/Vol] 3.7 mmol/L Normal 3.5-5.1 [facility] Comment on above: Performed By: #### U MICRO, ERUR #### [facility] [address] [address] [address] Alfredo Lizama Sodium [Moles/Vol] 140 mmol/L Normal 136-145 [facility] Comment on above: Performed By: #### U MICRO, ERUR #### [facility] [address] [address] [address] Alfredo Lizama Urea nitrogen [Mass/Vol] 7.0 mg/dL Normal 7.0-18.0 [facility] Comment on above: Performed By: #### U MICRO, ERUR #### [facility] [address] [place] [address] Dr. Alfredo Lizama Urea nitrogen/Creatinine [Mass ratio] 10.0 mg/mg Normal [facility] Comment on above: Performed By: #### U MICRO, ERUR #### [facility] [address] [place] [address] Dr. Alfredo Lizama URINE MICROSCOPIC ONLYon AMORPHOUS CRYSTALS FEW Normal [facility] Comment on above: Performed By: #### E RUR, UMICRO #### [facility] [address] [place] [address] Dr. Alfredo Lizama BACTERIA LARGE Abnormal NONE SEEN [facility] Comment on above: Performed By: #### E RUR, UMICRO #### [facility] [address] [place] [address] Dr. Alfredo Lizama Bacteria identified Cx Nom (U) INDICATED Normal [facility] Comment on above: Performed By: #### E RUR, UMICRO #### [facility] [address] [place] [address] Dr. Alfredo Lizama CAST NONE SEEN Normal NONE SEEN [facility] Comment on above: Performed By: #### E RUR, UMICRO #### [facility] [address] [place] [address] Dr. Alfredo Lizama Crystals LM Nom (Urine sed) SEEN Abnormal NONE SEEN [facility] Comment on above: Performed By: #### E RUR, UMICRO #### [facility] [address] [place] [address] Dr. Alfredo Lizama Epithelial cells LM Ql (Urine sed) RARE Normal NONE SEEN /RARE [facility] Comment on above: Performed By: #### E RUR, UMICRO #### [facility] [address] [place] [address] Dr. Alfredo Lizama MUCOUS NONE SEEN Normal NONE SEEN [facility] Comment on above: Performed By: #### E RUR, UMICRO #### [facility] [address] [place] [address] Dr. Alfredo Lizama RBC 2-5 Abnormal 0-2 [facility] Comment on above: Performed By: #### E RUR, UMICRO #### [facility] [address] [address] [address] Alfredo Lizama TRIPLE PHOS CRYSTALS FEW Normal [facility] Comment on above: Performed By: #### LINDA CHAVES #### [facility] [address] [id number] [address] Alfredo Lizama WBC 75-100 Abnormal NONE SEEN [facility] Comment on above: Performed By: #### E LINDA ESTRADA #### [facility] [address] [address] [address] Alfredo Lizama Patient Letter FTon 2022 Patient Letter [facility] (Inserted Image. Shelly ble to display) January 10, 2023 MORALES LEE [address] [place] [address] MORALES LEE 1975 Dear Morales, I am corresponding with you by certified mail because of repeat non compliance. You missed your catheter exchange appointment on 12/31/22. It is recommended your Alvares catheter be exchanged every 4 weeks to prevent encrustation and infection. Also you were referred to Dr Zhang at [facility] for further evaluation regarding your [...] [facility] [address], [place] [address] Normal [facility] CULTURE URINEon 12-25-2022 CULTURE URINE [...] F Trimethoprim/Sulfamethoxa zole <=20 S F Normal [facility] Comment on above: Performed By: #### U MICRO, ERUR #### [facility] [address] [place] [address] Dr. Alfredo Lizama AMYLASEon 11-09-2022 Amylase [Catalytic activity/Vol] 14 U/L Critically low 25-115 [facility] Comment on above: Performed By: #### U MICRO, ERUR #### [facility] [address] [place] [address] Dr. Alfredo Lizama CBC AUTO DIFFon 11-09-2022 BASO # 0.1 103/ul Normal 0.0-0.1 [facility] Comment on above: Performed By: #### U MICRO, ERUR #### [facility] [address] [place] [address] Dr. Alfredo Lizama Basophils/100 WBC (Bld) 0.8 % Normal 0.2-2.0 [facility] Comment on above: Performed By: #### U MICRO, ERUR #### [facility] [address] [place] [address] Dr. Alfredo Lizama EO # 0.2 103/ul Normal 0.0-0.7 [facility] Comment on above: Performed By: #### U MICRO, ERUR #### [facility] [address] [place] [address] Dr. Alfredo Lizama Eosinophils/100 WBC (Bld) 2.5 % Normal 0.9-7.0 [facility] Comment on above: Performed By: #### U MICRO, ERUR #### [facility] [address] [place] [address] Dr. Alfredo Lizama Erythrocyte distribution width (RBC) [Ratio] 12.7 % Normal 11.0-15.0 [facility] Comment on above: Performed By: #### U MICRO, ERUR #### [facility] [address] [place] [address] Dr. Alfredo Lizama Hematocrit (Bld) [Volume fraction] 46.3 % Normal 36.0-48.0 [facility] Comment on above: Performed By: #### U MICRO, ERUR #### [facility] [address] [place] [address] Dr. Alfredo Lizama Hemoglobin (Bld) [Mass/Vol] 15.9 g/dL Normal 12.0-16.0 [facility] Comment on above: Performed By: #### U MICRO, ERUR #### [facility] [address] [place] [address] Dr. Alfredo Lizama IG # 0.02 10e3/ul Normal 0.00-0.03 [facility] Comment on above: Performed By: #### U MICRO, ERUR #### [facility] [address] [place] [address] Dr. Alfredo Lizama IG % 0.2 % Normal 0.0-0.5 [facility] Comment on above: Performed By: #### U MICRO, ERUR #### [facility] [address] [place] [address] Dr. Alfredo Lizama LYMPH # 2.6 103/ul Normal 1.2-3.8 [facility] Comment on above: Performed By: #### U MICRO, ERUR #### [facility] [address] [place] [address] Dr. Alfredo Lizama Lymphocytes/100 WBC (Bld) 31.3 % Normal 20.5-60.0 [facility] Comment on above: Performed By: #### U MICRO, ERUR #### [facility] [address] [place] [address] Dr. Alfredo Lizama MANUAL DIFF REQ NO Normal [facility] Comment on above: Performed By: #### U MICRO, ERUR #### [facility] [address] [place] [address] Dr. Alfredo Lizama MCH (RBC) [Entitic mass] 29.3 pg Normal 26.7-34.0 [facility] Comment on above: Performed By: #### U MICRO, ERUR #### [facility] [address] [place] [address] Dr. Alfredo Lizama MCHC (RBC) [Mass/Vol] 34.3 g/dL Normal 29.9-35.2 [facility] Comment on above: Performed By: #### U MICRO, ERUR #### [facility] [address] [place] [address] Dr. Alfredo Lizama MCV (RBC) [Entitic vol] 85.4 fL Normal 81.0-99.0 [facility] Comment on above: Performed By: #### U MICRO, ERUR #### [facility] [address] [address] [address] Alfredo Lizama MONO # 0.6 103/ul Normal 0.3-0.8 [facility] Comment on above: Performed By: #### U MICRO, ERUR #### [facility] [address] [place] [address] Dr. Alfredo Lizama Monocytes/100 WBC (Bld) 6.6 % Normal 1.7-12.0 [facility] Comment on above: Performed By: #### U MICRO, ERUR #### [facility] [address] [place] [address] Dr. Alfredo Lizama NEUT # 4.9 103/ul Normal 1.4-6.5 [facility] Comment on above: Performed By: #### U MICRO, ERUR #### [facility] [address] [place] [address] Dr. Alfredo Lizama Neutrophils/100 WBC (Bld) 58.6 % Normal 43.0-75.0 [facility] Comment on above: Performed By: #### U MICRO, ERUR #### [facility] [address] [address] [address] Alfredo Lizama Platelet mean volume (Bld) [Entitic vol] 9.5 fL Normal 9.5-13.5 [facility] Comment on above: Performed By: #### U MICRO, ERUR #### [facility] [address] [place] [address] Dr. Alfredo Lizama PLT 273 103/ul Normal 150-450 [facility] Comment on above: Performed By: #### U MICRO, ERUR #### [facility] [address] [place] [address] Dr. Alfredo Lizama RBC 5.42 106/ul Critically high 4.20-5.40 [facility] Comment on above: Performed By: #### U MICRO, ERUR #### [facility] [address] [place] [address] Dr. Alfredo Lizama WBC 8.4 103/ul Normal 4.0-11.0 [facility] Comment on above: Performed By: #### U MICRO, ERUR #### [facility] [address] [place] [address] Dr. Alfredo Lizama CULTURE URINEon 11-09-2022 CULTURE URINE Culture Observations : MODERATE GROWTH OF MIXED GENITAL ROSANNA. NO POTENTIAL PATHOGENS SEEN. Normal [facility] Comment on above: Performed By: #### U MICRO, ERUR #### [facility] [address] [place] [address] Dr. Alfredo Lizama ER URINE PROFILEon Bilirubin Ql (U) Negative Normal NEGATIVE [facility] Comment on above: Performed By: #### U MICRO, ERUR #### [facility] [address] [place] [address] Dr. Alfredo Lizama Clarity (U) CLEAR Normal CLEAR [facility] Comment on above: Performed By: #### U MICRO, ERUR #### [facility] [address] [place] [address] Dr. Alfredo Lizama Color (U) LT. YELLOW Normal YELLOW [facility] Comment on above: Performed By: #### U MICRO, ERUR #### [facility] [address] [place] [address] Dr. Alfredo Lizama ERUAHD A micrscopic examina tion will be performed if indicated. Normal [facility] Comment on above: Performed By: #### U MICRO, ERUR #### [facility] [address] [place] [address] Dr. Alfredo Lizama Glucose Ql (U) Negative Normal NEGATIVE [facility] Comment on above: Performed By: #### U MICRO, ERUR #### [facility] [address] [address] [address] Alfredo Lizama Hemoglobin Ql (U) MODERATE Abnormal NEGATIVE [facility] Comment on above: Performed By: #### U MICRO, ERUR #### [facility] [address] [place] [address] Dr. Alfredo Lizama Ketones Ql (U) Negative Normal NEGATIVE [facility] Comment on above: Performed By: #### U MICRO, ERUR #### [facility] [address] [place] [address] Dr. Alfredo Lizama LEUKOCYTES LARGE Abnormal NEGATIVE [facility] Comment on above: Performed By: #### U MICRO, ERUR #### [facility] [address] [place] [address] Dr. Alfredo Lizama Nitrite Ql (U) Negative Normal NEGATIVE [facility] Comment on above: Performed By: #### U MICRO, ERUR #### [facility] [address] [place] [address] Dr. Alfredo Lizama pH (U) 7.0 [pH] Normal 5-9 [facility] Comment on above: Performed By: #### U MICRO, ERUR #### [facility] [address] [place] [address] Dr. Alfredo Lizama SPEC GRAVITY 1.015 Normal 1.005-<=1. 025 [facility] Comment on above: Performed By: #### U MICRO, ERUR #### [facility] [address] [place] [address] Dr. Alfredo Lizama UA PROTEIN Negative Normal NEGATIVE/ TRACE [facility] Comment on above: Performed By: #### U MICRO, ERUR #### [facility] [address] [place] [address] Dr. Alfredo Lizama UR MICRO IND INDICATED Normal [facility] Comment on above: Performed By: #### U MICRO, ERUR #### [facility] [address] [place] [address] Dr. Alfredo Lizama Urobilinogen Qn (U) 0.2 {Tesha'U}/dL Normal 0.2 - 1. 0 [facility] Comment on above: Performed By: #### U MICRO, ERUR #### [facility] [address] [place] [address] Dr. Alfredo Lizama LIPASEon 11-09-2022 Lipase [Catalytic activity/Vol] 34.0 U/L Critically low 73.0-393.0 [facility] Comment on above: Performed By: #### U MICRO, ERUR #### [facility] [address] [place] [address] Dr. Alfredo Lizama PROF 14(COMP METB)on 023 Albumin [Mass/Vol] 4.0 g/dL Normal 3.4-5.0 [facility] Comment on above: Performed By: #### U MICRO, ERUR #### [facility] [address] [place] [address] Dr. Alfredo Lizama Albumin/Globulin [Mass ratio] 1.0 {ratio} Normal [facility] Comment on above: Performed By: #### U MICRO, ERUR #### [facility] [address] [place] [address] Dr. Alfredo Lizama ALP [Catalytic activity/Vol] 206 U/L Critically high 46-116 [facility] Comment on above: Performed By: #### U MICRO, ERUR #### [facility] [address] [place] [address] Dr. Alfredo Lizama ALT [Catalytic activity/Vol] 53 U/L Normal 14-59 [facility] Comment on above: Performed By: #### U MICRO, ERUR #### [facility] [address] [place] [address] Dr. Alfredo Lizama Anion gap [Moles/Vol] 14.5 mmol/L Normal [facility] Comment on above: Performed By: #### U MICRO, ERUR #### [facility] [address] [place] [address] Dr. Alfredo Lizama AST [Catalytic activity/Vol] 55 U/L Critically high 15-37 [facility] Comment on above: Performed By: #### U MICRO, ERUR #### [facility] [address] [place] [address] Dr. Alfredo Lizama Bilirubin [Mass/Vol] 0.7 mg/dL Normal 0.2-1.0 [facility] Comment on above: Performed By: #### U MICRO, ERUR #### [facility] [address] [place] [address] Dr. Alfredo Lizama Calcium [Mass/Vol] 9.0 mg/dL Normal 8.5-10.1 [facility] Comment on above: Performed By: #### U MICRO, ERUR #### [facility] [address] [place] [address] Dr. Alfredo Lizama Chloride [Moles/Vol] 100 mmol/L Normal 98-107 [facility] Comment on above: Performed By: #### U MICRO, ERUR #### [facility] [address] [place] [address] Dr. Alfredo Lizama CO2 [Moles/Vol] 28.3 mmol/L Normal 21.0-32.0 [facility] Comment on above: Performed By: #### U MICRO, ERUR #### [facility] [address] [place] [address] Dr. Alfredo Lizama Creatinine [Mass/Vol] 0.65 mg/dL Normal 0.55-1.02 [facility] Comment on above: Performed By: #### U MICRO, ERUR #### [facility] [address] [place] [address] Dr. Alfredo Lizama EGFR-AF POLISH >60 Normal >=60 [facility] Comment on above: Performed By: #### U MICRO, ERUR #### [facility] [address] [place] [address] Dr. Alfredo Lizama EGFR-NON AF POLISH >60 Normal >=60 [facility] Comment on above: Performed By: #### U MICRO, ERUR #### [facility] [address] [place] [address] Dr. Alfredo Lizama Globulin (S) [Mass/Vol] 3.9 g/dL Normal T [facility] Comment on above: Performed By: #### U MICRO, ERUR #### [facility] [address] [place] [address] Dr. Alfredo Lizama Glucose [Mass/Vol] 134 mg/dL Critically high 74-106 [facility] Comment on above: Performed By: #### U MICRO, ERUR #### [facility] [address] [place] [address] Dr. Alfredo Lizama Potassium [Moles/Vol] 3.8 mmol/L Normal 3.5-5.1 [facility] Comment on above: Performed By: #### U MICRO, ERUR #### [facility] [address] [place] [address] Dr. Alfredo Lizama Protein [Mass/Vol] 7.9 g/dL Normal 6.4-8.2 [facility] Comment on above: Performed By: #### U MICRO, ERUR #### [facility] [address] [place] [address] Dr. Alfredo Lizama Sodium [Moles/Vol] 139 mmol/L Normal 136-145 [facility] Comment on above: Performed By: #### U MICRO, ERUR #### [facility] [address] [place] [address] Dr. Alfredo Lizama Urea nitrogen [Mass/Vol] 7.0 mg/dL Normal 7.0-18.0 [facility] Comment on above: Performed By: #### U MICRO, ERUR #### [facility] [address] [place] [address] Dr. Alfredo Lizama Urea nitrogen/Creatinine [Mass ratio] 10.7 mg/mg Normal [facility] Comment on above: Performed By: #### U MICRO, ERUR #### [facility] [address] [place] [address] Dr. Alfredo Lizama URINE MICROSCOPIC ONLYon BACTERIA TRACE Abnormal NONE SEEN [facility] Comment on above: Performed By: #### U MICRO, ERUR #### [facility] [address] [place] [address] Dr. Alfredo Lizama Bacteria identified Cx Nom (U) INDICATED Normal [facility] Comment on above: Performed By: #### U MICRO, ERUR #### [facility] [address] [place] [address] Dr. Alfredo Lizama CAST NONE SEEN Normal NONE SEEN [facility] Comment on above: Performed By: #### U MICRO, ERUR #### [facility] [address] [address] [address] Alfredo Lizama Crystals LM Nom (Urine sed) NONE SEEN Normal NONE SEEN [facility] Comment on above: Performed By: #### U MICRO, ERUR #### [facility] [address] [place] [address] Dr. Alfredo Lizama Epithelial cells LM Ql (Urine sed) FEW Abnormal NONE SEEN /RARE [facility] Comment on above: Performed By: #### U MICRO, ERUR #### [facility] [address] [address] [address] Alfredo Lizama MUCOUS NONE SEEN Normal NONE SEEN [facility] Comment on above: Performed By: #### U MICRO, ERUR #### [facility] [address] [place] [address] Dr. Alfredo Lizama RBC 20-50 Abnormal 0-2 [facility] Comment on above: Performed By: #### U MICRO, ERUR #### [facility] [address] [place] [address] Dr. Alfredo Lizama WBC 20-50 Abnormal NONE SEEN [facility] Comment on above: Performed By: #### U MICRO, ERUR #### [facility] [address] [place] [address] Dr. Alfredo Lizama XR ABD FLAT_UPon 11-09-2022 [...] Date: 2022-11-09 11:06 Normal [facility] CULTURE URINEon 10-18-2022 CULTURE URINE [...] <=10 S F Normal [facility] Comment on above: Performed By: #### U MICRO, ERUR #### [facility] [address] [place] [address] Dr. Alfredo Lizama ER URINE PROFILEon 3 Bilirubin Ql (U) Negative Normal NEGATIVE [facility] Comment on above: Performed By: #### Jacque ESTRADA UMICRO #### [facility] [address] [place] [address] Dr. Alfredo Lizama Clarity (U) CLEAR Normal CLEAR [facility] Comment on above: Performed By: #### E RUR UMICRO #### [facility] [address] [place] [address] Dr. Alfredo Lizama Color (U) YELLOW Normal YELLOW [facility] Comment on above: Performed By: #### E RUR UMICRO #### [facility] [address] [place] [address] Dr. Alfredo Lizama ERUAHD A micrscopic examina tion will be performed if indicated. Normal [facility] Comment on above: Performed By: #### E RUR, UMICRO #### [facility] [address] [place] [address] Dr. Alfredo Lizama Glucose Ql (U) Negative Normal NEGATIVE [facility] Comment on above: Performed By: #### CHINMAY CHAVESRO #### [facility] [address] [place] [address] Dr. Alfredo Lizama Hemoglobin Ql (U) LARGE Abnormal NEGATIVE [facility] Comment on above: Performed By: #### FER CHAVESICRO #### [facility] [address] [place] [address] Dr. Alfredo Lizama Ketones Ql (U) Negative Normal NEGATIVE [facility] Comment on above: Performed By: #### CHINMAY CHAVESRO #### [facility] [address] [place] [address] Dr. Alfredo Lizama LEUKOCYTES LARGE Abnormal NEGATIVE [facility] Comment on above: Performed By: #### CHINMAY CHAVESRO #### [facility] [address] [place] [address] Dr. Alfredo Lizama Nitrite Ql (U) Positive Abnormal NEGATIVE [facility] Comment on above: Performed By: #### CHINMAY CHAVESRO #### [facility] [address] [place] [address] Dr. Alfredo Lizama pH (U) 6.5 [pH] Normal 5-9 [facility] Comment on above: Performed By: #### CHINMAY CHAVESRO #### [facility] [address] [place] [address] Dr. Alfredo Lizama Protein (U) [Mass/Vol] 100 mg/dL Abnormal NEGAT LATISHA/ TRACE [facility] Comment on above: Performed By: #### CHINMAY CHAVESRO #### [facility] [address] [place] [address] Dr. Alfredo Lizama SPEC GRAVITY 1.010 Normal 1.005-<=1. 025 [facility] Comment on above: Performed By: #### CHINMAY CHAVESRO #### [facility] [address] [place] [address] Dr. Alfredo Lizama UR MICRO IND INDICATED Normal [facility] Comment on above: Performed By: #### E RUFER SantanaICRO #### [facility] [address] [place] [address] Dr. Alfredo Lziama Urobilinogen Qn (U) 1.0 {Tesha'U}/dL Normal 0.2 - 1. 0 [facility] Comment on above: Performed By: #### E FER ESTRADAICRO #### [facility] [address] [place] [address] Dr. Alfredo Lizama URINE MICROSCOPIC ONLYon BACTERIA MODERATE Abnormal NONE SEEN [facility] Comment on above: Performed By: #### U MICRO, ERUR #### [facility] [address] [place] [address] Dr. Alfredo Lizama Bacteria identified Cx Nom (U) INDICATED Normal [facility] Comment on above: Performed By: #### U MICRO, ERUR #### [facility] [address] [place] [address] Dr. Alfredo Lizama CA OX CRYSTALS RARE Normal [facility] Comment on above: Performed By: #### U MICRO, ERUR #### [facility] [address] [place] [address] Dr. Alfredo Lizama CAST NONE SEEN Normal NONE SEEN [facility] Comment on above: Performed By: #### U MICRO, ERUR #### [facility] [address] [place] [address] Dr. Alfredo Lizama Crystals LM Nom (Urine sed) SEEN Abnormal NONE SEEN [facility] Comment on above: Performed By: #### U MICRO, ERUR #### [facility] [address] [place] [address] Dr. Alfredo Lizama Epithelial cells LM Ql (Urine sed) MODERATE Abnormal NONE SEEN /RARE [facility] Comment on above: Performed By: #### U MICRO, ERUR #### [facility] [address] [place] [address] Dr. Alfredo Lizama MUCOUS TRACE Abnormal NONE SEEN [facility] Comment on above: Performed By: #### U MICRO, ERUR #### [facility] [address] [place] [address] Dr. Alfredo Lizama RBC 20-50 Abnormal 0-2 [facility] Comment on above: Performed By: #### U MICRO, ERUR #### [facility] [address] [place] [address] Dr. Alfredo Lizama WBC 50-75 Abnormal NONE SEEN [facility] Comment on above: Performed By: #### U MICRO, ERUR #### [facility] [address] [place] [address] Dr. Alfredo Lizama Covid-19 PCR ([facility])on 08-06 SARS-CoV-2 (COVID-19) RNA ADRIÁN+probe Ql (Unsp spec) Not detected Normal NOT DETECTED [facility] Comment on [...] for this test is supported by the [employer] and Human Service's declaration that [...] #### U MICRO, ERUR #### [facility] [address] [place] [address] Dr. Alfredo Lizama CBC AUTO DIFFon 08-24-2022 BASO # 0.1 103/ul Normal 0.0-0.1 [facility] Comment on above: Performed By: #### C BC #### [facility] [address] [place] [address] Dr. Alfredo Lizama Basophils/100 WBC (Bld) 0.8 % Normal 0.2-2.0 [facility] Comment on above: Performed By: #### C BC #### [facility] [address] [place] [address] Dr. Alfredo Lizama EO # 0.3 103/ul Normal 0.0-0.7 [facility] Comment on above: Performed By: #### C BC #### [facility] [address] [place] [address] Dr. Alfredo Lizama Eosinophils/100 WBC (Bld) 3.1 % Normal 0.9-7.0 [facility] Comment on above: Performed By: #### C BC #### [facility] [address] [place] [address] Dr. Alfredo Lizama Erythrocyte distribution width (RBC) [Ratio] 13.4 % Normal 11.0-15.0 [facility] Comment on above: Performed By: #### C BC #### [facility] [address] [place] [address] Dr. Alfredo Lizama Hematocrit (Bld) [Volume fraction] 47.2 % Normal 36.0-48.0 [facility] Comment on above: Performed By: #### C BC #### [facility] [address] [place] [address] Dr. Alfredo Lizama Hemoglobin (Bld) [Mass/Vol] 15.6 g/dL Normal 12.0-16.0 [facility] Comment on above: Performed By: #### C BC #### [facility] [address] [place] [address] Dr. Alfredo Lizama IG # 0.02 10e3/ul Normal 0.00-0.03 [facility] Comment on above: Performed By: #### C BC #### [facility] [address] [place] [address] Dr. Alfredo Lizama IG % 0.2 % Normal 0.0-0.5 [facility] Comment on above: Performed By: #### C BC #### [facility] [address] [place] [address] Dr. Alfredo Lizama LYMPH # 4.4 103/ul Critically high 1.2-3.8 [facility] Comment on above: Performed By: #### C BC #### [facility] [address] [place] [address] Dr. Alfredo Lizama Lymphocytes/100 WBC (Bld) 42.3 % Normal 20.5-60.0 [facility] Comment on above: Performed By: #### C BC #### [facility] [address] [place] [address] Dr. Alfredo Lizama MANUAL DIFF REQ NO Normal [facility] Comment on above: Performed By: #### C BC #### [facility] [address] [place] [address] Dr. Alfredo Lizama MCH (RBC) [Entitic mass] 28.8 pg Normal 26.7-34.0 [facility] Comment on above: Performed By: #### C BC #### [facility] [address] [place] [address] Dr. Alfredo Lizama MCHC (RBC) [Mass/Vol] 33.1 g/dL Normal 29.9-35.2 [facility] Comment on above: Performed By: #### C BC #### [facility] [address] [place] [address] Dr. Alfredo Lizama MCV (RBC) [Entitic vol] 87.2 fL Normal 81.0-99.0 [facility] Comment on above: Performed By: #### C BC #### [facility] [address] [place] [address] Dr. Alfredo Lizama MONO # 0.6 103/ul Normal 0.3-0.8 [facility] Comment on above: Performed By: #### C BC #### [facility] [address] [place] [address] Dr. Alfredo Lizama Monocytes/100 WBC (Bld) 5.3 % Normal 1.7-12.0 [facility] Comment on above: Performed By: #### C BC #### [facility] [address] [place] [address] Dr. Alfredo Lizama NEUT # 5.0 103/ul Normal 1.4-6.5 [facility] Comment on above: Performed By: #### C BC #### [facility] [address] [place] [address] Dr. Alfredo Lizama Neutrophils/100 WBC (Bld) 48.3 % Normal 43.0-75.0 [facility] Comment on above: Performed By: #### C BC #### [facility] [address] [place] [address] Dr. Alfredo Lizama Platelet mean volume (Bld) [Entitic vol] 9.9 fL Normal 9.5-13.5 [facility] Comment on above: Performed By: #### C BC #### [facility] [address] [place] [address] Dr. Alfredo Lizmaa PLT 298 103/ul Normal 150-450 [facility] Comment on above: Performed By: #### C BC #### [facility] [address] [place] [address] Dr. Alfredo Lizama RBC 5.41 106/ul Critically high 4.20-5.40 [facility] Comment on above: Performed By: #### C BC #### [facility] [address] [place] [address] Dr. Alfredo Lizama WBC 10.3 103/ul Normal 4.0-11.0 [facility] [facility] Comment on above: Performed By: #### C BC #### [facility] [address] [place] [address] Dr. Alfredo Lizama PROF CHEM 8 (BAS METB)on Anion gap [Moles/Vol] 14.3 mmol/L Normal [facility] Comment on above: Performed By: #### U MICRO, ERUR #### [facility] [address] [place] [address] Dr. Alfredo Lizama Calcium [Mass/Vol] 9.1 mg/dL Normal 8.5-10.1 [facility] Comment on above: Performed By: #### U MICRO, ERUR #### [facility] [address] [place] [address] Dr. Alfredo Lizama Chloride [Moles/Vol] 99 mmol/L Normal 98-107 [facility] Comment on above: Performed By: #### U MICRO, ERUR #### [facility] [address] [address] [address] Alfredo Lizama CO2 [Moles/Vol] 29.0 mmol/L Normal 21.0-32.0 [facility] Comment on above: Performed By: #### U MICRO, ERUR #### [facility] [address] [address] [address] Alfredo Lizama Creatinine [Mass/Vol] 0.70 mg/dL Normal 0.55-1.02 [facility] Comment on above: Performed By: #### U MICRO, ERUR #### [facility] [address] [address] [address] Alfredo Lizama EGFR-AF POLISH >60 Normal >=60 [facility] Comment on above: Performed By: #### U MICRO, ERUR #### [facility] [address] [place] [address] Dr. Alfredo Lizama EGFR-NON AF POLISH >60 Normal >=60 [facility] Comment on above: Performed By: #### U MICRO, ERUR #### [facility] [address] [address] [address] Alfredo Lizama Glucose [Mass/Vol] 121 mg/dL Critically high 74-106 [facility] Comment on above: Performed By: #### U MICRO, ERUR #### [facility] [address] [address] [address] Alfredo Lizama Potassium [Moles/Vol] 3.3 mmol/L Critically low 3.5-5.1 [facility] Comment on above: Performed By: #### U MICRO, ERUR #### [facility] [address] [address] [address] Alfredo Lizama Sodium [Moles/Vol] 139 mmol/L Normal 136-145 [facility] Comment on above: Performed By: #### U MICRO, ERUR #### [facility] [address] [address] [address] Alfredo Lizama Urea nitrogen [Mass/Vol] 5.0 mg/dL Critically low 7.0-18. 0 [facility] Comment on above: Performed By: #### U MICRO, ERUR #### [facility] [address] [place] [address] Dr. Alfredo Lizama Urea nitrogen/Creatinine [Mass ratio] 7.1 mg/mg Normal [facility] Comment on above: Performed By: #### U MICRO, ERUR #### [facility] [address] [place] [address] Dr. Alfredo Lizama PROTIMEon 08-24-2022 INR Coag (PPP) [Relative time] 0.99 {INR} Normal [facility] Comment on above: Performed By: #### P T, PTT #### [facility] [address] [place] [address] Dr. Alfredo Lizama INR GUIDELINES SEE BELOW Normal [facility] Comment on above: Result Comment: MARY JO RED INR: 2.0 - 3.0 CONDITIONS NOT LISTED BELOW 2.5 - 3.5 FOR PROSTHETIC HEART VALVE REPLACEMENT 2.5 - 3.5 RECURRENT THROMBOSIS Performed By: #### P T, PTT #### [facility] [address] [place] [address] Dr. Alfredo Lizama PT Coag (PPP) [Time] 10.7 s Normal 9.0-11.6 [facility] Comment on above: Performed By: #### P T, PTT #### [facility] [address] [place] [address] Dr. Alfredo Lizama PTTon 08-24-2022 aPTT Coag (Bld) [Time] 31.7 s Normal 22.3-36.2 [facility] Comment on above: Performed By: #### P T, PTT #### [facility] [address] [place] [address] Dr. Alfredo Lizama BN SACRUM/COCCYX, MIN 2 [...] 09/20/2019. Thoracolumbar spine radiographs 09/08/2021. ACCESSION NUMBER(S): [id number]; [id number]; [id number] ORDERING CLINICIAN: CANDICE PEREZ FINDINGS: Three views [...] stated. Electronically signed by: GOMEZ JAMA MD [facility] BN SPINE, LUMBOSACRAL; 2 OR [...] 09/20/2019. Thoracolumbar spine radiographs 09/08/2021. ACCESSION NUMBER(S): [id number]; [id number]; [id number] ORDERING CLINICIAN: CANDICE PEREZ FINDINGS: Three views [...] stated. Electronically signed by: GOMEZ JAMA MD [facility] BN SPINE, THORACIC, 3 VIEWSo [...] 09/20/2019. Thoracolumbar spine radiographs 09/08/2021. ACCESSION NUMBER(S): [id number]; [id number]; [id number] ORDERING CLINICIAN: CANDICE PEREZ FINDINGS: Three views [...] Electronically signed by: GOMEZ JAMA MD Normal [facility] CBC AND DIFFERENTIALon 06-07 % AUTOMATED IMMATURE GRAN 0.2 % Normal 0.0 - 0.9 [facility] Comment on above: Result Comment: Jaleesa ture Granulocyte Count (IG) includes promyelocytes, myelocytes and metamyelocytes but does not include bands. Percent differential counts (%) should be interpreted in the context of the absolute cell counts (cells/L). Performed By: #### R ENAL #### [facility] [address] [place] [address] Basophils (Bld) [#/Vol] 0.09 10*3/uL Normal 0.00 - 0.10 [facility] Comment on above: Performed By: #### R ENAL #### [facility] [address] [place] [address] Basophils/100 WBC (Bld) 1.0 % Normal 0.0 - 2.[address] [facility] Comment on above: Performed By: #### R ENAL #### [facility] [address] [place] [address] Eosinophils (Bld) [#/Vol] 0.24 10*3/uL Normal 0.00 - 0.70 [facility] Comment on above: Performed By: #### R ENAL #### [facility] [address] [place] [address] Eosinophils/100 WBC (Bld) 2.6 % Normal 0.0 - 6.0 [facility] Comment on above: Performed By: #### R ENAL #### [facility] [address] [place] [address] Erythrocyte distribution width (RBC) [Ratio] 12.9 % Normal 11.5 - 14.5 [facility] Comment on above: Performed By: #### R ENAL #### [facility] [address] [place] [address] Hematocrit (Bld) [Volume fraction] 48.4 % High 36.0 - 46.0 [facility] Comment on above: Performed By: #### R ENAL #### [facility] [address] [place] [address] Hemoglobin (Bld) [Mass/Vol] 17.1 g/dL High 12.0 - 16.0 [facility] Comment on above: Performed By: #### R ENAL #### [facility] [address] [place] [address] Lymphocytes (Bld) [#/Vol] 2.93 10*3/uL Normal 1.20 - 4.80 [facility] Comment on above: Performed By: #### R ENAL #### [facility] [address] [place] [address] Lymphocytes/100 WBC (Bld) 31.9 % Normal 13.0 - 44.0 [facility] Comment on above: Performed By: #### R ENAL #### [facility] [address] [place] [address] MCHC (RBC) [Mass/Vol] 35.3 g/dL Normal 32.0 - 36.0 [facility] Comment on above: Performed By: #### R ENAL #### [facility] [address] [place] [address] MCV (RBC) [Entitic vol] 85 fL Normal 80 - 100 [facility] Comment on above: Performed By: #### R ENAL #### [facility] [address] [place] [address] Monocytes (Bld) [#/Vol] 0.36 10*3/uL Normal 0.10 - 1.00 [facility] Comment on above: Performed By: #### R ENAL #### [facility] [address] [place] [address] Monocytes/100 WBC (Bld) 3.9 % Normal 2.0 - 10.0 [facility] Comment on above: Performed By: #### R ENAL #### [facility] [address] [place] [address] Neutrophils (Bld) [#/Vol] 5.54 10*3/uL Normal 1.20 - 7.70 [facility] Comment on above: Performed By: #### R ENAL #### [facility] [address] [place] [address] Neutrophils/100 WBC (Bld) 60.4 % Normal 40.0 - 80.0 [facility] Comment on above: Performed By: #### R ENAL #### [facility] [address] [place] [address] NUCLEATED RBC 0.0 /100 WBC Normal 0.0-0.0 [facility] Comment on above: Performed By: #### R ENAL #### [facility] [address] [place] [address] Platelets (Bld) [#/Vol] 365 10*3/uL Normal 150 - 450 [facility] Comment on above: Performed By: #### R ENAL #### [facility] [address] [place] [address] RBC 5.69 x10E12/L High 4.00 - 5.20 [facility] Comment on above: Performed By: #### R ENAL #### [facility] [address] [place] [address] WBC (Bld) [#/Vol] 9.2 10*3/uL Normal 4.4 - 11.3 [facility] Comment on above: Performed By: #### R ENAL #### [facility] [address] [place] [address] COMPREHENSIVE PANELon 2021 Albumin [Mass/Vol] 4.6 g/dL Normal 3.4 - 5.0 [facility] Comment on above: Performed By: #### R ENAL #### [facility] [address] [place] [address] ALP [Catalytic activity/Vol] 192 U/L High 33 - 110 [facility] Comment on above: Performed By: #### R ENAL #### [facility] [address] [place] [address] ALT [Catalytic activity/Vol] 33 U/L Normal 7 - 45 [facility] Comment on above: Result Comment: Melly ents treated with Sulfasalazine may generate falsely decreased results for ALT. Performed By: #### R ENAL #### [facility] [address] [place] [address] Anion gap [Moles/Vol] 16 mmol/L Normal 10 - 20 [facility] Comment on above: Performed By: #### R ENAL #### [facility] [address] [place] [address] AST [Catalytic activity/Vol] 51 U/L High 9 - 39 [facility] Comment on above: Performed By: #### R ENAL #### [facility] [address] [place] [address] Bilirubin [Mass/Vol] 0.5 mg/dL Normal 0.0 - 1.2 [facility] Comment on above: Performed By: #### R ENAL #### [facility] [address] [place] [address] Calcium [Mass/Vol] 10.3 mg/dL Normal 8.6 - 10.6 [facility] Comment on above: Performed By: #### R ENAL #### [facility] [address] [place] [address] Chloride [Moles/Vol] 101 mmol/L Normal 98 - 107 [facility] Comment on above: Performed By: #### R ENAL #### [facility] [address] [place] [address] Creatinine [Mass/Vol] 0.61 mg/dL Normal 0.50 - 1.05 [facility] Comment on above: Performed By: #### R ENAL #### [facility] [address] [place] [address] eGFR FEMALE >90 Normal >90 [facility] Comment on above: Result Comment: CALC ULATIONS OF ESTIMATED GFR ARE PERFORMED USING THE 2020 CKD-EPI STUDY REFIT EQUATION WITHOUT THE RACE VARIABLE FOR THE IDMS-TRACEABLE CREATININE METHODS. https://jasn.asnjournals.org/content/early//ASN.699 9530045 Performed By: #### R ENAL #### [facility] [address] [place] [address] Glucose [Mass/Vol] 100 mg/dL High 74 - 99 [facility] Comment on above: Performed By: #### R ENAL #### [facility] [address] [place] [address] HCO3 (Bld) [Moles/Vol] 27 mmol/L Normal 21 - 32 [facility] Comment on above: Performed By: #### R ENAL #### [facility] [address] [place] [address] Potassium [Moles/Vol] 3.8 mmol/L Normal 3.5 - 5.3 [facility] Comment on above: Performed By: #### R ENAL #### [facility] [address] [place] [address] Protein [Mass/Vol] 8.2 g/dL Normal 6.4 - 8.2 [facility] Comment on above: Performed By: #### R ENAL #### [facility] [address] [place] [address] Sodium [Moles/Vol] 140 mmol/L Normal 136 - 145 [facility] Comment on above: Performed By: #### R ENAL #### [facility] [address] [place] [address] Urea nitrogen [Mass/Vol] 5 mg/dL Low 6 - 23 [facility] Comment on above: Performed By: #### R ENAL #### [facility] [address] [place] [address] Consult - Neuro-Surgeryon Consult - Neuro-Surgery Service: [...] Updated: 07-Jun-2022 11:22 by Perez Carlisle) Normal [facility] NR CT L-SPINE WO CONTRASTon 06-07-[address] L-SPINE WO CONTRAST Patient Name: MORALES LEE STUDY: CT T-SPINE WO CONTRAST; CT L-SPINE WO CONTRAST 06/06/2022 11:03 pm INDICATION: ok, Lie Flat: Yes COMPARISON: 09/20/2021 MRI and 09/18/2021 CT ACCESSION NUMBER(S): [id number]; [id number] ORDERING CLINICIAN: CANDICE PEREZ TECHNIQUE: Axial CT [...] osseous spinal canal or neural foraminal stenosis. Jgyl-gq-iztqmpft spinal canal and neural foraminal narrowing described [...] view. Electronically signed by: DO Andrei TOURE [facility] NR CT T-SPINE WO CONTRASTon 06-07-[address] T-SPINE WO CONTRAST Patient Name: MORALES LEE STUDY: CT T-SPINE WO CONTRAST; CT L-SPINE WO CONTRAST 06/06/2022 11:03 pm INDICATION: ok, Lie Flat: Yes COMPARISON: 09/20/2021 MRI and 09/18/2021 CT ACCESSION NUMBER(S): [id number]; [id number] ORDERING CLINICIAN: CANDICE PEREZ TECHNIQUE: Axial CT [...] osseous spinal canal or neural foraminal stenosis. Kpeu-ic-couoromf spinal canal and neural foraminal narrowing described [...] view. Electronically signed by: DO Andrei TOURE [facility] Provider Note - ED Care Diaz nabila 06-07-2022 Provider Note - ED Care Transition [...] 21-Jun-2022 06:18 by Yony Aguirre () Normal [facility] Provider Note - ED v3on 10-0 Provider [...] with the clinical decision making Will MD [facility], PGY2 HISTORY OF PRESENTING ILLNESS [...] - M21.37 (more content not included)... Normal [facility] Triage - EDon 06-06-2022 Triage - ED [...] BMI (kg/m2): 34.793 Calculated BSA (m2) 1.94 [place] Coma Scale: Best Eye Response: (E4) spontaneous Best Motor Response: (M6) obeys commands Best Verbal Response: (V5) oriented [place] Score: 15 Mask applied: yes Patient has [...] Last Updated: 06-Jun-2022 19:07 by Meghan Chavez (EVARISTO) Normal [facility] CULTURE URINEon 05-10-2022 CULTURE URINE Isolate 1 [...] F Trimethoprim/Sulfamethoxa zole <=20 S F Normal [facility] Comment on above: Performed By: #### U MICRO, ERUR #### [facility] [address] [address] [address] Alfredo Lizama CBC AUTO DIFFon 05-07-2022 BASO # 0.1 103/ul Normal 0.0-0.1 [facility] Comment on above: Performed By: #### U MICRO, ERUR #### [facility] [address] [place] [address] Dr. Alfredo Lizama Basophils/100 WBC (Bld) 0.5 % Normal 0.2-2.0 [facility] Comment on above: Performed By: #### U MICRO, ERUR #### [facility] [address] [address] [address] Alfredo Lizama EO # 0.4 103/ul Normal 0.0-0.7 [facility] Comment on above: Performed By: #### U MICRO, ERUR #### [facility] [address] [address] [address] Alfredo Lizama Eosinophils/100 WBC (Bld) 3.5 % Normal 0.9-7.0 [facility] Comment on above: Performed By: #### U MICRO, ERUR #### [facility] [address] [address] [address] Alfredo Lizama Erythrocyte distribution width (RBC) [Ratio] 13.2 % Normal 11.0-15.0 [facility] Comment on above: Performed By: #### U MICRO, ERUR #### [facility] [address] [place] [address] Dr. Alfredo Lizama Hematocrit (Bld) [Volume fraction] 44.0 % Normal 36.0-48.0 [facility] Comment on above: Performed By: #### U MICRO, ERUR #### [facility] [address] [place] [address] Dr. Alfredo Lizama Hemoglobin (Bld) [Mass/Vol] 14.8 g/dL Normal 12.0-16.0 [facility] Comment on above: Performed By: #### U MICRO, ERUR #### [facility] [address] [place] [address] Dr. Alfredo Lizama IG # 0.03 10e3/ul Normal 0.00-0.03 [facility] Comment on above: Performed By: #### U MICRO, ERUR #### [facility] [address] [place] [address] Dr. Alfredo Lizama IG % 0.2 % Normal 0.0-0.5 [facility] Comment on above: Performed By: #### U MICRO, ERUR #### [facility] [address] [place] [address] Dr. Alfredo Lizama LYMPH # 3.8 103/ul Normal 1.2-3.8 [facility] Comment on above: Performed By: #### U MICRO, ERUR #### [facility] [address] [place] [address] Dr. Alfredo Lizama Lymphocytes/100 WBC (Bld) 31.3 % Normal 20.5-60.0 [facility] Comment on above: Performed By: #### U MICRO, ERUR #### [facility] [address] [place] [address] Dr. Alfredo Lizama MANUAL DIFF REQ NO Normal [facility] Comment on above: Performed By: #### U MICRO, ERUR #### [facility] [address] [place] [address] Dr. Alfredo Lizama MCH (RBC) [Entitic mass] 28.8 pg Normal 26.7-34.0 [facility] Comment on above: Performed By: #### U MICRO, ERUR #### [facility] [address] [place] [address] Dr. Alfredo Lizama MCHC (RBC) [Mass/Vol] 33.6 g/dL Normal 29.9-35.2 [facility] Comment on above: Performed By: #### U MICRO, ERUR #### [facility] [address] [place] [address] Dr. Alfredo Lizama MCV (RBC) [Entitic vol] 85.8 fL Normal 81.0-99.0 [facility] Comment on above: Performed By: #### U MICRO, ERUR #### [facility] [address] [place] [address] Dr. Alfredo Lizama MONO # 0.7 103/ul Normal 0.3-0.8 [facility] Comment on above: Performed By: #### U MICRO, ERUR #### [facility] [address] [place] [address] Dr. Alfredo Lizama Monocytes/100 WBC (Bld) 5.8 % Normal 1.7-12.0 [facility] Comment on above: Performed By: #### U MICRO, ERUR #### [facility] [address] [place] [address] Dr. Alfredo Lizama NEUT # 7.1 103/ul Critically high 1.4-6.5 [facility] Comment on above: Performed By: #### U MICRO, ERUR #### [facility] [address] [place] [address] Dr. Alfredo Lizama Neutrophils/100 WBC (Bld) 58.7 % Normal 43.0-75.0 [facility] Comment on above: Performed By: #### U MICRO, ERUR #### [facility] [address] [place] [address] Dr. Alfredo Lizama Platelet mean volume (Bld) [Entitic vol] 9.6 fL Normal 9.5-13.5 [facility] Comment on above: Performed By: #### U MICRO, ERUR #### [facility] [address] [place] [address] Dr. Alfredo Lizama PLT 269 103/ul Normal 150-450 [facility] Comment on above: Performed By: #### U MICRO, ERUR #### [facility] [address] [address] [address] Alfredo Lizama RBC 5.13 106/ul Normal 4.20-5.40 [facility] Comment on above: Performed By: #### U MICRO, ERUR #### [facility] [address] [address] [address] Alfredo Lizama WBC 12.2 103/ul Critically high 4.0-11.0 [facility] Comment on above: Performed By: #### U MICRO, ERUR #### [facility] [address] ABD/PELV W CONon [...] Date: 2022-05-07 14:00 Normal [facility] ER URINE PROFILEon 2 Bilirubin Ql (U) Negative Normal NEGATIVE [facility] Comment on above: Performed By: #### U MICRO, ERUR #### [facility] [address] [place] [address] Dr. Alfredo Lizama Clarity (U) CLOUDY Abnormal CLEAR [facility] Comment on above: Performed By: #### U MICRO, ERUR #### [facility] [address] [place] [address] Dr. Alfredo Lizama Color (U) LT. YELLOW Normal YELLOW [facility] Comment on above: Performed By: #### U MICRO, ERUR #### [facility] [address] [place] [address] Dr. Alfredo Lizama ERUAHD A micrscopic examina tion will be performed if indicated. Normal [facility] Comment on above: Performed By: #### U MICRO, ERUR #### [facility] [address] [place] [address] Dr. Alfredo Lizama Glucose Ql (U) Negative Normal NEGATIVE [facility] Comment on above: Performed By: #### U MICRO, ERUR #### [facility] [address] [place] [address] Dr. Alfredo Lizama Hemoglobin Ql (U) LARGE Abnormal NEGATIVE [facility] Comment on above: Performed By: #### U MICRO, ERUR #### [facility] [address] [address] [address] Alfredo Lizama Ketones Ql (U) Negative Normal NEGATIVE [facility] Comment on above: Performed By: #### U MICRO, ERUR #### [facility] [address] [place] [address] Dr. Alfredo Lizama LEUKOCYTES MODERATE Abnormal NEGATIVE [facility] Comment on above: Performed By: #### U MICRO, ERUR #### [facility] [address] [place] [address] Dr. Alfredo Lizama Nitrite Ql (U) Positive Abnormal NEGATIVE [facility] Comment on above: Performed By: #### U MICRO, ERUR #### [facility] [address] [place] [address] Dr. Alfredo Lizama pH (U) 8.5 [pH] Normal 5-9 [facility] Comment on above: Performed By: #### U MICRO, ERUR #### [facility] [address] [place] [address] Dr. Alfredo Lizama Protein (U) [Mass/Vol] 100 mg/dL Abnormal NEGAT LATISHA/ TRACE [facility] Comment on above: Performed By: #### U MICRO, ERUR #### [facility] [address] [place] [address] Dr. Alfredo Lizama SPEC GRAVITY 1.015 Normal 1.005-<=1. 025 [facility] Comment on above: Performed By: #### U MICRO, ERUR #### [facility] [address] [place] [address] Dr. Alfredo Lizama UR MICRO IND INDICATED Normal [facility] Comment on above: Performed By: #### U MICRO, ERUR #### [facility] [address] [place] [address] Dr. Alfredo Lizama Urobilinogen Qn (U) 1.0 {Tesha'U}/dL Normal 0.2 - 1. 0 [facility] Comment on above: Performed By: #### U MICRO, ERUR #### [facility] [address] [address] [address] Alfredo Lizama PROF CHEM 8 (BAS METB)on Anion gap [Moles/Vol] 12.0 mmol/L Normal [facility] Comment on above: Performed By: #### U MICRO, ERUR #### [facility] [address] [place] [address] Dr. Alfredo Lizama Calcium [Mass/Vol] 8.6 mg/dL Normal 8.5-10.1 [facility] Comment on above: Performed By: #### U MICRO, ERUR #### [facility] [address] [place] [address] Dr. Alfredo Lizama Chloride [Moles/Vol] 101 mmol/L Normal 98-107 [facility] Comment on above: Performed By: #### U MICRO, ERUR #### [facility] [address] [place] [address] Dr. Alfredo Lizama CO2 [Moles/Vol] 28.0 mmol/L Normal 21.0-32.0 [facility] Comment on above: Performed By: #### U MICRO, ERUR #### [facility] [address] [place] [address] Dr. Alfredo Lizama Creatinine [Mass/Vol] 0.77 mg/dL Normal 0.55-1.02 [facility] Comment on above: Performed By: #### U MICRO, ERUR #### [facility] [address] [place] [address] Dr. Alfredo Lizama EGFR-AF POLISH >60 Normal >=60 [facility] Comment on above: Performed By: #### U MICRO, ERUR #### [facility] [address] [place] [address] Dr. Alfredo Lizama EGFR-NON AF POLISH >60 Normal >=60 [facility] Comment on above: Performed By: #### U MICRO, ERUR #### [facility] [address] [place] [address] Dr. Alfredo Lizama Glucose [Mass/Vol] 96 mg/dL Normal 74-106 [facility] Comment on above: Performed By: #### U MICRO, ERUR #### [facility] [address] [place] [address] Dr. Alfredo Lizama Potassium [Moles/Vol] 4.0 mmol/L Normal 3.5-5.1 [facility] Comment on above: Performed By: #### U MICRO, ERUR #### [facility] [address] [place] [address] Dr. Alfredo Lizama Sodium [Moles/Vol] 137 mmol/L Normal 136-145 [facility] Comment on above: Performed By: #### U MICRO, ERUR #### [facility] [address] [place] [address] Dr. Alfredo Lizama Urea nitrogen [Mass/Vol] 7.0 mg/dL Normal 7.0-18.0 [facility] Comment on above: Performed By: #### U MICRO, ERUR #### [facility] [address] [place] [address] Dr. Alfredo Lizama Urea nitrogen/Creatinine [Mass ratio] 9.1 mg/mg Normal [facility] Comment on above: Performed By: #### U MICRO, ERUR #### [facility] [address] [place] [address] Dr. Alfredo Lizama URINE MICROSCOPIC ONLYon BACTERIA MODERATE Abnormal NONE SEEN [facility] Comment on above: Performed By: #### U MICRO, ERUR #### [facility] [address] [place] [address] Dr. Alfredo Lizama Bacteria identified Cx Nom (U) INDICATED Normal [facility] Comment on above: Performed By: #### U MICRO, ERUR #### [facility] [address] [place] [address] Dr. Alfredo Lizama CAST NONE SEEN Normal NONE SEEN [facility] Comment on above: Performed By: #### U MICRO, ERUR #### [facility] [address] [place] [address] Dr. Alfredo Lizama Crystals LM Nom (Urine sed) NONE SEEN Normal NONE SEEN [facility] Comment on above: Performed By: #### U MICRO, ERUR #### [facility] [address] [place] [address] Dr. Alfredo Lizama Epithelial cells LM Ql (Urine sed) FEW Abnormal NONE SEEN /RARE [facility] Comment on above: Performed By: #### U MICRO, ERUR #### [facility] [address] [address] [address] Alfredo Lizama MUCOUS NONE SEEN Normal NONE SEEN [facility] Comment on above: Performed By: #### U MICRO, ERUR #### [facility] [address] [place] [address] Dr. Alfredo Lizama RBC 2-5 Abnormal 0-2 [facility] Comment on above: Performed By: #### U MICRO, ERUR #### [facility] [address] [address] [address] Alfredo Lizama WBC 10-20 Abnormal NONE SEEN [facility] Comment on above: Performed By: #### U MICRO, ERUR #### [facility] [address] [place] [address] Dr. Alfredo Lizama CULTURE URINEon 04-10-2022 CULTURE [...] <=20 S F Normal [facility] Comment on above: Performed By: #### U MICRO, ERUR #### [facility] [address] [place] [address] Dr. Alfredo Lizama ER URINE PROFILEon 2 Bilirubin Ql (U) Negative Normal NEGATIVE [facility] Comment on above: Performed By: #### U MICRO, ERUR #### [facility] [address] [place] [address] Dr. Alfredo Lizama Clarity (U) CLOUDY Abnormal CLEAR [facility] Comment on above: Performed By: #### U MICRO, ERUR #### [facility] [address] [place] [address] Dr. Alfredo Lizama Color (U) YELLOW Normal YELLOW [facility] Comment on above: Performed By: #### U MICRO, ERUR #### [facility] [address] [place] [address] Dr. Alfredo Lizama ERUAHD A micrscopic examina tion will be performed if indicated. Normal [facility] Comment on above: Performed By: #### U MICRO, ERUR #### [facility] [address] [place] [address] Dr. Alfredo Lizama Glucose Ql (U) Negative Normal NEGATIVE [facility] Comment on above: Performed By: #### U MICRO, ERUR #### [facility] [address] [address] [address] Alfredo Lizama Hemoglobin Ql (U) SMALL Abnormal NEGATIVE [facility] Comment on above: Performed By: #### U MICRO, ERUR #### [facility] [address] [place] [address] Dr. Alfredo Lizama Ketones Ql (U) Negative Normal NEGATIVE [facility] Comment on above: Performed By: #### U MICRO, ERUR #### [facility] [address] [place] [address] Dr. Alfredo Lizama LEUKOCYTES LARGE Abnormal NEGATIVE [facility] Comment on above: Performed By: #### U MICRO, ERUR #### [facility] [address] [place] [address] Dr. Alfredo Lizama Nitrite Ql (U) Negative Normal NEGATIVE [facility] Comment on above: Performed By: #### U MICRO, ERUR #### [facility] [address] [place] [address] Dr. Alfredo Lizama pH (U) 7.0 [pH] Normal 5-9 [facility] Comment on above: Performed By: #### U MICRO, ERUR #### [facility] [address] [place] [address] Dr. Alfredo Lizama SPEC GRAVITY <=1.005 Abnormal 1.005-<=1. 025 [facility] Comment on above: Performed By: #### U MICRO, ERUR #### [facility] [address] [place] [address] Dr. Alfredo Lizama UA PROTEIN Negative Normal NEGATIVE/ TRACE [facility] Comment on above: Performed By: #### U MICRO, ERUR #### [facility] [address] [place] [address] Dr. Alfredo Lizama UR MICRO IND INDICATED Normal [facility] Comment on above: Performed By: #### U MICRO, ERUR #### [facility] [address] [place] [address] Dr. Alfredo Lizama Urobilinogen Qn (U) 0.2 {Tesha'U}/dL Normal 0.2 - 1. 0 [facility] Comment on above: Performed By: #### U MICRO, ERUR #### [facility] [address] [place] [address] Dr. Alfredo Lizama URINE MICROSCOPIC ONLYon BACTERIA MODERATE Abnormal NONE SEEN [facility] Comment on above: Performed By: #### U MICRO, ERUR #### [facility] [address] [place] [address] Dr. Alfredo Lizama Bacteria identified Cx Nom (U) INDICATED Normal [facility] Comment on above: Performed By: #### U MICRO, ERUR #### [facility] [address] [place] [address] Dr. Alfredo Lizama CAST NONE SEEN Normal NONE SEEN [facility] Comment on above: Performed By: #### U MICRO, ERUR #### [facility] [address] [place] [address] Dr. Alfredo Lizama Crystals LM Nom (Urine sed) NONE SEEN Normal NONE SEEN [facility] Comment on above: Performed By: #### U MICRO, ERUR #### [facility] [address] [place] [address] Dr. Alfredo Lizama Epithelial cells LM Ql (Urine sed) FEW Abnormal NONE SEEN /RARE [facility] Comment on above: Performed By: #### U MICRO, ERUR #### [facility] [address] [place] [address] Dr. Alfredo Lizama MUCOUS NONE SEEN Normal NONE SEEN [facility] Comment on above: Performed By: #### U MICRO, ERUR #### [facility] [address] [place] [address] Dr. Alfredo Lizama RBC 5-10 Abnormal 0-2 [facility] Comment on above: Performed By: #### U MICRO, ERUR #### [facility] [address] [place] [address] Dr. Alfredo Lizama WBC (U) [#/Vol] /uL Abnormal NONE SEEN [facility] Comment on above: Performed By: #### U MICRO, ERUR #### [facility] [address] [place] [address] Dr. Alfredo Lizama Clinical Event Note-Need for Hospital Bedon 10-02-2021 [...] of the lumbar region. Provider/Team Contact Info-Pager [phone] Electronic Signatures: Sharmin Guaman (FINANCIAL SYSTEMS ADMINISTRATOR-FLY FISHING GUIDE) (Signed 02-Oct-2021 15:19) Authored: Clinical Event Note Last Updated: 02-Oct-2021 15:19 by Sharmin Guaman (FINANCIAL SYSTEMS ADMINISTRATOR-FLY FISHING GUIDE) Normal [facility] Clinical Event Note-Need for wheel Chairon 10-02-2021 [...] home, can self propel or has a critical care specialist to provide assistance. Provider/Team Contact Info-Pager [phone] Electronic Signatures: Sharmin Guaman (FINANCIAL SYSTEMS ADMINISTRATOR-FLY FISHING GUIDE) (Signed 02-Oct-2021 15:27) Authored: Clinical Event Note Last Updated: 02-Oct-2021 15: by Sharmin Guaman (FINANCIAL SYSTEMS ADMINISTRATOR-FLY FISHING GUIDE) Normal [facility] Daily Progress Note-Neurosur jinny 10-02-2021 Daily Progress Note-Neurosurgery Service: Neurosurgery Subjective Data: MORALES LEE is a 46 year old Female who is Hospital Day # 18 and POD #11 for posterior L4-L5 decompression;posterior L4-L5 arthrodesis. Objective Data: Objective Information: T PRBPSpO2 [id number]/8397% Date/Time10/02 1: 1: 1: 1: 1:28 Range(36.2C [...] 2021 10:00 pm000 Oct 01, 2021 2:00 [id number] The Intake and Output Totals for the [...] the note. I personally evaluated the patient [id number] Electronic Signatures: Kenenth Philippe (Resident)) (Signed 02-Oct-2021 06:52) Authored: Service, Subjective Data, Objective Data, Assessment and Plan, Note Completion Lex Frederick) (Signed 02-Oct-2021 15:16) Authored: Note Completion Co-Signer: Service, Subjective Data, Objective Data, Assessment and Plan, Note Completion Last Updated: 02-Oct-2021 15:16 by Lex Frederick) Normal [facility] Clinical Event Note-Discharg e discussionon 10-01-2021 Clinical [...] of trip. Electronic Signatures: Ambrocio Izaguirre (FINANCIAL SYSTEMS ADMINISTRATOR-FLY FISHING GUIDE) (Signed 01-Oct-2021 17:11) Authored: Clinical Event Note Last Updated: 01-Oct-2021 17:11 by Ambrocio Izaguirre (FINANCIAL SYSTEMS ADMINISTRATOR-FLY FISHING GUIDE) Normal [facility] Clinical Event Note-Need for hospital bedon 10-01-2021 [...] lying flat. Electronic Signatures: Ambrocio Izaguirre (FINANCIAL SYSTEMS ADMINISTRATOR-FLY FISHING GUIDE) (Signed 01-Oct-2021 14:48) Authored: Clinical Event Note Last Updated: 01-Oct-2021 14:48 by Ambrocio Izaguirre (FINANCIAL SYSTEMS ADMINISTRATOR-FLY FISHING GUIDE) Normal [facility] Daily Progress Note-Nuha stearns 10-01-2021 Daily Progress Note-Neurosurgery Service: Neurosurgery Subjective Data: MORALES LEE is a 46 year old Female who is Hospital Day # 17 and POD #10 for posterior L4-L5 decompression;posterior L4-L5 arthrodesis. Objective Data: Objective Information: T PRBPSpO2 [id number]/7194% Date/Time10/01 0: 0: 0: 0: 0:38 Range(35.6C - 36.8C ) (64 - 96 ) (16 - 19 ) (94 - 138 )/ (59 - 83 ) (92% - 94% ) Pain reported at 09/30 9:00: 2 = Mild ---- Intake and Output ----- Mn/Dy/Year TimeIntakeOutputNet Sep 29, 2021 10:00 [id number] Sep 29, 2021 2:00 [id number] Sep 29, 2021 6:00 am000 The Intake [...] 01-Oct-2021 10:29 by Lex Frederick () Normal [facility] Daily Progress Note-Neurosurgery This report has been cancelled. Normal [facility] Daily Progress Note-Neurosur leonidasgaurang 09-30-2021 Daily Progress Note-Neurosurgery Service: Neurosurgery Subjective Data: MORALES LEE is a 46 year old Female who is Hospital Day # 15 and POD #8 for posterior L4-L5 decompression;posterior L4-L5 arthrodesis. Objective Data: Objective Information: T PRBPSpO2 [id number]/7393% Date/Time09/29 16: 16: 16: 16: 16:00 Range(36C - 36.7C ) (67 - 86 ) (17 - 20 ) (94 - 153 )/ (15 - 113 ) (93% - 98% ) Pain reported at 09/29 9:56: 5 = Moderate ---- Intake and Output ----- Mn/Dy/Year TimeIntakeOutputNet Sep 29, 2021 2:00 [id number] Sep 29, 2021 6:00 am000 Sep 28, 2021 10:00 [id number] The Intake and Output Totals for the [...] the note. I personally evaluated the patient [id number] Electronic Signatures: Lex Frederick) (Signed 30-Sep-2021 11:18) Authored: Note Completion Co-Signer: Service, Subjective Data, Objective Data, Assessment and Plan, Note Completion Jaya Mosquera (Resident)) (Signed 30-Sep-2021 03:18) Authored: Service, Subjective Data, Objective Data, Assessment and Plan, Note Completion Last Updated: 30-Sep-2021 11:18 by Lex Frederick) [facility] Czkw-kv-jniwhmzqx - co -tx /c OT to address multidiscipon 09-30-2021 Rehab Uwpf-rd-jrwiedrwg - co-tx /c OT to address multidiscip Rehab: Info: Disciplinephysical radiation therapy technician Mode of Treatmentphysical therapy; co-treatment; co-tx /c OT to address multidisciplinary functional needs and maximize pt's safety. Time IN12:15 Time OUT12:55 Total Treatment [id number] Patient in ... at end of sessionbed, 3 railings up; alarm off; not on at start of visit Communicated with ... at end of sessionbedside nurse Patient Effortgood Symptoms Noted During/After Treatmentfatigue Treatment Considerations/CommentsEx tensive discussion /c amongst MANHOLE STRIPPER, OT, and pt regarding her current physical [...] rolling right; rolling left; scooting/bridging Roll Left [place] (Bed Mobility)moderate assist (50% patient effort); 1 person assist; nonverbal cues (demo/gesture); verbal cues Roll Right [place] (Bed Mobility)moderate assist (50% patient effort); 1 person assist; nonverbal cues (demo/gesture); verbal cues Scoot/Bridge [place] (Bed Mobility)maximum assist (25% patient effort); 2 person assist; nonverbal cues (demo/gesture); verbal cues Gyqefw-xp-Mqs [place] (Bed Mobility)maximum assist (25% patient effort); 2 person assist; nonverbal cues (demo/gesture); verbal cues Epu-xz-Kkmamf [place] (Bed Mobility)maximum assist (25% patient effort); 2 [...] Pt repositioned back to sitting EOB. Sit-Stand [place] (Transfers)dependent (less than 25% patient effort) Sit-Stand Assistive Device (Transfers)mechanical lift/aid Stand-Sit [place] (Transfers)dependent (less than 25% patient effort) Stand-Sit [...] Score8 Short Term Goals: Bed Mobility: Date [id number] Bed Mobility: [place] Level Goalminimum assist (75% patients effort) Bed Mobility: Physical Assist Level Goal1-person assist, verbal cues Bed Mobility: Time Frame for Goal2 wks Transfer: Established Transfer: Transfer Type [place]fheut-wa-pouix/chair-to -bed; cqc-zb-ulruw/aaxxe-yo-zmt Transfer: [place] Level Goalmoderate assist (50% patients effort) Transfer: Physical Assist Level Goal1-person assist; verbal cues Transfer: Assistive Device Goalrolling walker Transfer: Time Frame for Goal2 wks Gait: Established Gait: [place] Level Goalmoderate assist (50% patients (more content not included)... Normal [facility] Rehab Note-occupational health physician apy - co-tx with PT to maximizeon 09-30-2021 Rehab Note-occupational therapy - co-tx with PT to maximize Rehab: Info: Disciplineoccupational therapist Mode of Treatmentoccupational therapy; co-tx with PT to maximize pt's mobility and safety. Time IN12:15 Time OUT12:55 Total Treatment [id number] Patient in ... at end of sessionbed, [...] olling right; rolling left; scooting/bridging Roll Left [place] (Bed Mobility)moderate assist (50% patient effort); 1 person assist; nonverbal cues (demo/gesture); verbal cues Roll Right [place] (Bed Mobility)moderate assist (50% patient effort); 1 person assist; nonverbal cues (demo/gesture); verbal cues Scoot/Bridge [place] (Bed Mobility)maximum assist (25% patient effort); 2 [...] lower body dressing; upper body dressing; bathing [place] Level (Bathing)set up; verbal cues; moderate assist (50% patient effort); 1 person assist Comment (Bathing)anticipated due to impaired balance, strength, and pain. [place] Level (Upper Body Dressing)set up; verbal cues; moderate assist (50% patient effort) Comment (Upper Body Dressing)anticipated due to impaired balance, strength, and pain. [place] Level (Lower Body Dressing)don; socks; dependent (less than 25% patient effort) Position (Lower Body Dressing)supine [place] Level (Grooming)modified independence Comment (Grooming)Pt observed applying Orajel to gums, able to manage packaging, cap un/screwing, and application. [place] Level (Feeding)modified independence Comment (Feeding)Pt able to retrieve OJ cup from tray table at R side, bring to mouth, and drink appropriately. [place] Level (Toileting)dependent (less than 25% patient effort); joyce Comment (Toileting)Pt required Total A for toilet [...] Score15 Short Term Goals: Bed Mobility: Date [id number] Bed Mobility: [place] Level Goalcontact guard Bed Mobility: Physical Assist Level Goalset-up, verbal cues Bed Mobility: Time Frame for Goal2 wks Transfer: Established Transfer: Transfer Type Bhsbrss-xg-quspd/chair-to -bed; fyf-fo-cikcl/iuzxo-it-lvt ; toilet Transfer: [place] Level Goalminimum assist (75% patients effort) Transfer: Physical Assist Level Goalset-up; verbal cues; 1-person assist Transfer: Assistive Device GoalLRD Transfer: Time Frame for Goal2 wks Balance: Established [id number] Balance: Goal DetailsPt will perform ADL while reaching outside MADDIE and returning self to midline >8 minutes with set-up assist, SBA, and minimal verbal cues for safety. Enrique (more content not included)... Normal [facility] Daily Progress Note-Nuha stearns 09-29-2021 Daily Progress Note-Neurosurgery Service: Neurosurgery Subjective Data: MORALES LEE is a 46 year old Female who is Hospital Day # 14 and POD #7 for posterior L4-L5 decompression;posterior L4-L5 arthrodesis. Objective Data: Objective Information: T PRBPSpO2 [id number]/[id number]% Date/Time09/28 4: 8: 8: 8: 8:00 Range(36C [...] 2021 6:00 am000 Sep 27, 2021 10:00 [id number] Sep 27, 2021 2:00 [id number] The Intake and Output Totals for the last 24 hours are: IntakeOutputNet [id number] Physical Exam by System: Neurological: A&Ox3 RUE [...] the note. I personally evaluated the patient [id number] Electronic Signatures: Lex Frederick) (Signed 29-Sep-2021 09:23) Authored: Note Completion Co-Signer: Service, Subjective Data, Objective Data, Assessment and Plan, Note Completion Jaya Mosquera (Resident)) (Signed 29-Sep-2021 03:01) Authored: Service, Subjective Data, Objective Data, Assessment and Plan, Note Completion Last Updated: 29-Sep-2021 09:23 by Lex Frederick) [facility] Wupl-dl-vifxipcep - co -tx /c OT to address multidiscipon 09-29-2021 Rehab Impw-go-riztjhjai - co-tx /c OT to address multidiscip Rehab: Info: Disciplinephysical radiation therapy technician Mode of Treatmentphysical therapy; co-treatment; co-tx /c OT to address multidisciplinary functional needs and maximize pt's safety. Time IN14:30 Time OUT15:40 Total Treatment [id number] Patient in ... at end of sessionbed, [...] to sit; sit to supine Roll Left [place] (Bed Mobility)maximum assist (25% patient effort); 2 person assist; verbal cues; nonverbal cues (demo/gesture) Roll Right [place] (Bed Mobility)maximum assist (25% patient effort); 2 person assist; verbal cues; nonverbal cues (demo/gesture) Scoot/Bridge [place] (Bed Mobility)maximum assist (25% patient effort); 2 person assist; nonverbal cues (demo/gesture); verbal cues Kmtxmz-na-Vbi [place] (Bed Mobility)maximum assist (25% patient effort); 2 person assist; nonverbal cues (demo/gesture); verbal cues Foy-ne-Exupgr [place] (Bed Mobility)verbal cues; nonverbal cues (demo/gesture); maximum [...] Pt repositioned back to sitting EOB. Sit-Stand [place] (Transfers)dependent (less than 25% patient effort) Sit-Stand Assistive Device (Transfers)mechanical lift/aid Stand-Sit N[place]olls (Transfers)dependent (less than 25% patient effort) Stand-Sit [...] Score8 Short Term Goals: Bed Mobility: Date [id number] Bed Mobility: N[place]olls Level Goalminimum assist (75% patients effort) Bed Mobility: Physical Assist Level Goal1-person assist, verbal cues Bed Mobility: Time Frame for Goal2 wks Transfer: Established Transfer: Transfer Type Xbcvntw-pf-onvii/chair-to -bed; qgy-kg-ufpyy/mdzer-xf-kww Transfer: [place]s Level Goalmoderate assist (50% patients effort) Transfer: Physical Assist Level Goal1-person assist; verbal cues Transfer: Assistive Device Goalrolling walker Transfer: Time Frame for Goal2 wks Gait: Established Gait: N[place]olls Level Goalmoderate assist (50% patients effort) Gait: [...] fair Outcome (more content not included)... Normal [facility] Rehab Note-occupational health physician apy - co-tx with PT to maximizeon 09-29-2021 Rehab Note-occupational therapy - co-tx with PT to maximize Rehab: Info: Disciplineoccupational therapist Mode of Treatmentoccupational therapy; co-tx with PT to maximize pt's mobility and safety. Time IN14:30 Time OUT15:40 Total Treatment Aeetnso50 Patient in ... at end of sessionbed, [...] to sit; sit to supine Roll Left Nuckolls (Bed Mobility)maximum assist (25% patient effort); 2 person assist; verbal cues; nonverbal cues (demo/gesture); multiple rolls to adjust harness Roll Right [place]olls (Bed Mobility)maximum assist (25% patient effort); 2 person assist; verbal cues; nonverbal cues (demo/gesture); multiple rolls to adjust harness Scoot/Bridge [place]s (Bed Mobility)maximum assist (25% patient effort); 2 person assist; nonverbal cues (demo/gesture); verbal cues; boost HOB Akgwis-lo-Mwa Nuckolls (Bed Mobility)maximum assist (25% patient effort); 2 person assist; nonverbal cues (demo/gesture); verbal cues Sps-ey-Uulegn [place]olls (Bed Mobility)verbal cues; nonverbal cues (demo/gesture); maximum assist (25% patient effort); 2 person assist Assistive Device (Bed Mobility)draw sheet; bed rails Transfer Assessment/Interventionss it to stand transfer; stand to sit transfer Sit-Stand N[place]olls (Transfers)dependent (less than 25% patient effort) Sit-Stand Assistive Device (Transfers)mechanical lift/aid; Faye Plus Stand-Sit [place]olls (Transfers)dependent (less than 25% patient effort) Stand-Sit Assistive Device (Transfers)mechanical lift/aid; Faye Plus Safety Issues Impacting Function (Mobility)awareness of need for assistance; insight into deficits/self awareness Impairments Impacting Function (Mobility)endurance/activ ity tolerance; strength; balance; coordination; postural/trunk control ADL: BADL Assessment/Interventionto ileting; feeding; grooming; lower body dressing; upper body dressing; bathing Nuckolls Level (Bathing)set up; verbal cues; moderate assist (50% patient effort); 1 person assist Comment (Bathing)anticipated due to impaired balance, strength, and pain. [place]olls Level (Upper Body Dressing)set up; verbal cues; moderate assist (50% patient effort) Comment (Upper Body Dressing)anticipated due to impaired balance, strength, and pain. N[place]olls Level (Lower Body Dressing)don; socks; dependent (less than 25% patient effort) Position (Lower Body Dressing)supine Nuckolls Level (Grooming)set up; contact guard Comment (Grooming)anticipated due to impaired balance, strength, and pain. N[place]olls Level (Feeding)set up; modified independence Comment (Feeding)anticipated N[place]olls Level (Toileting)dependent (less than 25% patient effort); purewick Impairments, BADL Safety/Performancebalance ; cognition; endurance/activity tolerance; strength; trunk/postural control Cognitive Impairments, BADL Safety/Performanceawarene ss, need for assistance; insight into deficits/self awareness; judgment; problem solving/reasoning Motor: Sitting, Static (Balance)good balance SBA Sitting, Dynamic (Balance)fair balance CGA Xpk-cw-Uwdcu (Balance)poor balance Total A via Faye Plus lift Standing, Static (Balance)poor balance Max A x1 - via Faye Plus Standing, Dynamic (Balance)unable to balance Balance ActivitiesPt sat EOB ~20 minutes throughout session primarily with SB (more content not included)... Normal [facility] Clinical Event Note-Medical Assessmenton 09-28-2021 Clinical Event [...] oil enema alternating with tap water enema [id number] - Bisacodyl suppository QHS Daily - Monitor [...] wound check 10/07/21 at 10:15 am, [facility] 5th floor - F/U with Dr. Frederick 11/03/21 at 1400, [facility] - Patient fitted for PRAFO boots by [...] 45 minutes; Electronic Signatures: Concetta Shi (FINANCIAL SYSTEMS ADMINISTRATOR-FLY FISHING GUIDE) (Signed 28-Sep-2021 14:31) Authored: Clinical Event Note Last Updated: 28-Sep-2021 14:31 by Concetta Shi (FINANCIAL SYSTEMS ADMINISTRATOR-FLY FISHING GUIDE) Normal [facility] Daily Progress Note-Gastroen terologyon 09-28-2021 Daily Progress Note-Gastroenterology Service: Gastroenterology Subjective Data: MORALES LEE is a 46 year old Female who is Hospital Day # 14 and POD #7 for posterior L4-L5 decompression;posterior L4-L5 arthrodesis. No events overnight. Had one bowel movement this am. Otherwise no complaints. Objective Data: Objective Information: T PRBPSpO2 [id number]/6993% Date/Time09/28 4: 8: 8: 8: 8:00 Range(36C [...] 2021 6:00 am000 Sep 27, 2021 10:00 [id number] Sep 27, 2021 2:00 [id number] The Intake and Output Totals for the last 24 hours are: IntakeOutputNet [id number] Physical Exam by System: Constitutional: Constitutional: A&Ox3, [...] recommend tr (more content not included)... Normal [facility] Daily Progress Note-Nuha stearns 09-28-2021 Daily Progress Note-Neurosurgery Service: Neurosurgery Subjective Data: MORALES LEE is a 46 year old Female who is Hospital Day # 14 and POD #7 for posterior L4-L5 decompression;posterior L4-L5 arthrodesis. Objective Data: Objective Information: T PRBPSpO2 [id number]/4893% Date/Time09/28 4: 4: 4: 4: 4:00 Range(36C - 36.6C ) (72 - 87 ) (15 - 22 ) (92 - 153 )/ (48 - 113 ) (92% - 99% ) As of 27-Sep-2021 22:00:00, patient is on 2 L/min of oxygen via nasal cannula. Pain reported at 09/27 22:00: 0 = None ---- Intake and Output ----- Mn/Dy/Year TimeIntakeOutputNet Sep 26, 2021 10:00 [id number] Sep 26, 2021 2:00 [id number] The Intake and Output Totals for the last 24 hours are: IntakeOutputNet [id number] Physical Exam by System: Neurological: A&Ox3 RUE [...] the note. I personally evaluated the patient [id number] Electronic Signatures: Fidel Maciel (Resident)) (Signed 28-Sep-2021 05:47) Authored: Service, Subjective Data, Objective Data, Assessment and Plan, Note Completion Lex Frederick) (Signed 28-Sep-2021 07:32) Authored: Note Completion Co-Signer: Service, Subjective Data, Objective Data, Assessment and Plan, Note Completion Last Updated: 28-Sep-2021 07:32 by Lex Frederikc) Normal [facility] RENAL FUNCTION PANELon 09-28 Albumin [Mass/Vol] 3.1 g/dL Low 3.4 - 5.0 [facility] Comment on above: Performed By: #### R ENAL ####[id number] [place] [address] Anion gap [Moles/Vol] 17 mmol/L Normal 10 - 20 [facility] Comment on above: Performed By: #### R ENAL ####[id number] [place] [address] Calcium [Mass/Vol] 8.4 mg/dL Low 8.6 - 10.6 [facility] Comment on above: Performed By: #### R ENAL ####[id number] [place] [address] Chloride [Moles/Vol] 102 mmol/L Normal 98 - 107 [facility] Comment on above: Performed By: #### R ENAL ####[id number] [place] [address] Creatinine [Mass/Vol] 0.47 mg/dL Low 0.50 - 1.05 [facility] Comment on above: Performed By: #### R ENAL ####[id number] [place] [address] eGFR FEMALE >90 Normal >90 [facility] Comment on above: Result Comment: CALC ULATIONS OF ESTIMATED GFR ARE PERFORMED USING THE 2020 CKD-EPI STUDY REFIT EQUATION WITHOUT THE RACE VARIABLE FOR THE IDMS-TRACEABLE CREATININE METHODS. https://jasn.asnjournals.org/content//ASN.884 0736276 Performed By: #### R ENAL ####[id number] [place] [address] Glucose [Mass/Vol] 74 mg/dL Normal 74 - 99 [facility] Comment on above: Performed By: #### R ENAL ####[id number] [place] [address] HCO3 (Bld) [Moles/Vol] 27 mmol/L Normal 21 - 32 [facility] Comment on above: Performed By: #### R ENAL ####[id number] [place] [address] Phosphate [Mass/Vol] 3.4 mg/dL Normal 2.5 - 4.9 [facility] Comment on above: Result Comment: The performance characteristics of phosphorus testing in heparinized plasma have been validated by the individual laboratory site where testing is performed. Testing on heparinized plasma is not approved by the FDA; however, such approval is not necessary. Performed By: #### R ENAL ####[id number] [place] [address] Potassium [Moles/Vol] 3.7 mmol/L Normal 3.5 - 5.3 [facility] Comment on above: Performed By: #### R ENAL ####[id number] [place] [address] Sodium [Moles/Vol] 142 mmol/L Normal 136 - 145 [facility] Comment on above: Performed By: #### R ENAL ####[id number] [place] [address] Urea nitrogen [Mass/Vol] 6 mg/dL Normal 6 - 23 [facility] Comment on above: Performed By: #### R ENAL ####[id number] [place] [address] Radiologyon 09-28-2021 XR Abdomen AP Normal MG-Gastroen terology-Rosendo hernandesell 6 [facility] Work Phone: Rehab Note-attemptedon 09-28 Rehab Note-attempted Rehab: 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 Pt stated NO! NO! NO! upon therapists arrival, even /c increased encouragement. Will reattempt as schedule allows. Short Term Goals: Bed Mobility: Date [id number] Bed Mobility: Nuckolls Level Goalminimum assist (75% patients effort) Bed Mobility: Physical Assist Level Goal1-person assist, verbal cues Bed Mobility: Time Frame for Goal2 wks Transfer: Established Transfer: Transfer Type Mmbtccm-cl-wyqox/chair-to -bed; ldx-pg-dyvxs/hfpgx-ix-eiv Transfer: [place]olls Level Goalmoderate assist (50% patients effort) Transfer: Physical Assist Level Goal1-person assist; verbal cues Transfer: Assistive Device Goalrolling walker Transfer: Time Frame for Goal2 wks Gait: Established [id number] Gait: [place]olls Level Goalmoderate assist (50% patients effort) Gait: Physical Assist Level1-person assist; verbal cues Gait: Assistive Device Goalrolling walker Gait: Distance Goal15 feet Gait: Time Frame for Goal2 wks Balance: Established [id number] Balance: Goal DetailsSitting EOB 20 minutes with 0-1 UE support, SBA for static sitting, CGA for dynamic. Standing 1 minute with FWW and CGA Electronic Signatures: Yosi Campbell (MANHOLE STRIPPER) (Signed 28-Sep-2021 15:32) Entered: Short Term Goals, Info Authored: Info, Short Term Goals Boone Broussard (PT) (Signed 01-Oct-2021 09:01) Co-Signer: Short Term Goals, Info Last Updated: 01-Oct-2021 09:01 by Boone Broussard (PT) Normal [facility] Rehab Note-attempted Rehab: Info: Mode of Treatmentattempted [...] 28-Sep-2021 15:28 by Silvana Marshall (OT) Normal [facility] Renal Function Panelon 09-28 Albumin BCP dye [...] 6 - 23 MG-Gastroen terology-Rosendo lwell 6 [facility] Work Phone: Renal Function Panel >90 >90 [facility] 6 [facility] Work Phone: Comment on above: CALCULATIONS OF IVY MATED GFR ARE PERFORMED USING THE 2020 CKD-EPI STUDY REFIT EQUATION WITHOUT THE RACE VARIABLE FOR THE IDMS-TRACEABLE CREATININE METHODS.https://jasn.asnjournals.org/content/early/ /ASN.6210978447 ABDOMEN AP VIEWon 022 ABDOMEN AP VIEW Patient Name: MORALES LEE STUDY: ABDOMEN AP VIEW; 09/28/2021 1:22 pm INDICATION: Abd. dist. . COMPARISON: 09/27/2021 abdominal radiograph. ACCESSION NUMBER(S): [id number] ORDERING CLINICIAN: CONCETTA SHI FINDINGS: Two AP [...] as stated. This study was interpreted at [facility], [place], [place]. 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 Has been on scheduled bowel regimen with [...] penicillin: Unknown Objective: Objective Information: T PRBPSpO2 [id number]/42919% Date/Time09/27 4: 4: 4: 4:00 Range (76 [...] C6-7 ACDFF, (more content not included)... Normal [facility] Daily Progress Note-Neurosur jinny 09-27-2021 Daily Progress Note-Neurosurgery Service: Neurosurgery Subjective Data: MORALES LEE is a 46 year old Female who is Hospital Day # 13 and POD #6 for posterior L4-L5 decompression;posterior L4-L5 arthrodesis. Objective Data: Objective Information: T PRBPSpO2 [id number]/66264% Date/Time09/26 11:0809/27 4: 4: 4: 4:00 Range(37C [...] 2021 6:00 am000 Sep 26, 2021 10:00 [id number] Sep 26, 2021 2:00 [id number] The Intake and Output Totals for the last 24 hours are: IntakeOutputNet [id number] Physical Exam by System: Neurological: A&Ox3 RUE [...] the note. I personally evaluated the patient [id number] Electronic Signatures: Chaparro Umana (Resident)) (Signed 27-Sep-2021 06:11) Authored: Service, Subjective Data, Objective Data, Assessment and Plan, Note Completion Natalia Palacios) (Signed 08-Oct-2021 14:31) Authored: Note Completion Co-Signer: Service, Subjective Data, Objective Data, Assessment and Plan, Note Completion Last Updated: 08-Oct-2021 14:31 by Natalia Palacios) Normal [facility] MAGNESIUMon 09-27-2021 Magnesium [Mass/Vol] 1.80 mg/dL Normal 1.60 - 2.40 [facility] Comment on above: Performed By: #### C #### [facility] [id number] [place] [address] Magnesium, Serumon Magnesium [Mass/Vol] 1.80 mg/dL See Below MG-G astroen terraiza-Rosendo moura 6 [facility] Work Phone: Comment on above: Reference Range: 1.6 0 - 2.40 RENAL FUNCTION PANELon 09-27 Albumin [Mass/Vol] 3.3 g/dL Low 3.4 - 5.0 [facility] Comment on above: Performed By: #### R ENAL #### [facility] [address] [place] [address] Anion gap [Moles/Vol] 17 mmol/L Normal 10 - 20 [facility] Comment on above: Performed By: #### R ENAL #### [facility] [address] [place] [address] Calcium [Mass/Vol] 8.5 mg/dL Low 8.6 - 10.6 [facility] Comment on above: Performed By: #### R ENAL #### [facility] [address] [place] [address] Chloride [Moles/Vol] 98 mmol/L Normal 98 - 107 [facility] Comment on above: Performed By: #### R ENAL #### [facility] [address] [place] [address] Creatinine [Mass/Vol] 0.44 mg/dL Low 0.50 - 1.05 [facility] Comment on above: Performed By: #### R ENAL #### [facility] [address] [place] [address] eGFR FEMALE >90 Normal >90 [facility] Comment on above: Result Comment: CALC ULATIONS OF ESTIMATED GFR ARE PERFORMED USING THE 2020 CKD-EPI STUDY REFIT EQUATION WITHOUT THE RACE VARIABLE FOR THE IDMS-TRACEABLE CREATININE METHODS. https://jasn.asnjournals.org/content//ASN.199 3129494 Performed By: #### R ENAL #### [facility] [address] [place] [address] Glucose [Mass/Vol] 91 mg/dL Normal 74 - 99 [facility] Comment on above: Performed By: #### R ENAL #### [facility] [address] [place] [address] HCO3 (Bld) [Moles/Vol] 26 mmol/L Normal 21 - 32 [facility] Comment on above: Performed By: #### R ENAL #### [facility] [address] [place] [address] Phosphate [Mass/Vol] 4.0 mg/dL Normal 2.5 - 4.9 [facility] Comment on above: Result Comment: The performance characteristics of phosphorus testing in heparinized plasma have been validated by the individual laboratory site where testing is performed. Testing on heparinized plasma is not approved by the FDA; however, such approval is not necessary. Performed By: #### R ENAL #### [facility] [address] [place] [address] Potassium [Moles/Vol] 4.1 mmol/L Normal 3.5 - 5.3 [facility] Comment on above: Performed By: #### R ENAL #### [facility] [address] [place] [address] Sodium [Moles/Vol] 137 mmol/L Normal 136 - 145 [facility] Comment on above: Performed By: #### R ENAL #### [facility] [address] [place] [address] Urea nitrogen [Mass/Vol] 6 mg/dL Normal 6 - 23 [facility] Comment on above: Performed By: #### R ENAL #### [facility] [address] [place] [address] Radiologyon 09-27-2021 XR Abdomen AP Normal MG-Gastroen terology-Rosendo lwell 6 [facility] Work Phone: Renal Function Panelon 09-27 Albumin BCP dye [Mass/Vol] 3.3 g/dL below low threshold 3.4 - 5.0 MG-Gastroen terology-Rosendo lwell 6 [facility] Work Phone: Anion gap [Moles/Vol] 17 mmol/L 10 - 20 MG- Gastroen terology-Rosendo lwell 6 [facility] Work Phone: Calcium [Mass/Vol] 8.5 mg/dL below low threshold 8.6 - 10.6 MG-Gastroen terology-Rosendo lwell 6 [facility] Work Phone: Chloride [Moles/Vol] 98 mmol/L 98 [...] RACE VARIABLE FOR THE IDMS-TRACEABLE CREATININE METHODS.https://jasn.asnjournals.org/content/ /ASN.3278845914 ABDOMEN AP VIEWon 022 ABDOMEN AP VIEW Patient Name: MORALES LEE STUDY: ABDOMEN AP VIEW; 09/27/2021 2:33 am INDICATION: vomiting, constipation . COMPARISON: None. ACCESSION NUMBER(S): [id number] ORDERING CLINICIAN: FIDEL MACIEL FINDINGS: 2 AP [...] as stated. This study was interpreted at [facility], [place], [place]. Electronically signed by: DWIGHT MOY MD [facility] Daily Progress Note-Neurosjudy stearns 09-26-2021 Daily Progress Note-Neurosurgery Service: Neurosurgery Subjective Data: MORALES LEE is a 46 year old Female who is Hospital Day # 12 and POD #5 for posterior L4-L5 decompression;posterior L4-L5 arthrodesis. Objective Data: Objective Information: T PRBPSpO2 [id number]/8299% Date/Time09/25 17: 12: 17: 17:08 Range (68 - 98 ) (21 - 23 ) (118 - 136 )/ (69 - 82 ) (92% - 99% ) Pain reported at 09/26 3:00: sleeping ---- Intake and Output ----- Mn/Dy/Year TimeIntakeOutputNet Sep 24, 2021 10:00 [id number] Sep 24, 2021 2:00 [id number] Sep 24, 2021 6:00 [id number] The Intake and Output Totals for the last 24 hours are: IntakeOutputNet [id number] Physical Exam by System: Neurological: A&Ox3 RUE [...] the note. I personally evaluated the patient [id number] Electronic Signatures: Jaya Mosquera ( (Resident)) (Signed 26-Sep-2021 07:08) Authored: Service, Subjective Data, Objective Data, Assessment and Plan, Note Completion Natalia Palacios) (Signed 08-Oct-2021 14:10) Authored: Note Completion Co-Signer: Service, Subjective Data, Objective Data, Assessment and Plan, Note Completion Last Updated: 08-Oct-2021 14:10 by Natalia Palacios) Normal [facility] Clinical Event Note-POD 4 / Abdominal assessmenton [...] wound check 10/07/21 at 10:15 am, [facility] 5th floor - F/U with [...] of care. Electronic Signatures: Concetta Shi (FINANCIAL SYSTEMS ADMINISTRATOR-FLY FISHING GUIDE) (Signed 25-Sep-2021 13:30) Authored: Clinical Event Note Last Updated: 25-Sep-2021 13:30 by Concetta Shi (FINANCIAL SYSTEMS ADMINISTRATOR-FLY FISHING GUIDE) [facility] Daily Progress Note-Neurosur leonidasgaurang 09-25-2021 Daily Progress Note-Neurosurgery Service: Neurosurgery Subjective Data: MORALES LEE is a 46 year old Female who is Hospital Day # 11 and POD #4 for posterior L4-L5 decompression;posterior L4-L5 arthrodesis. Objective Data: Objective Information: T PRBPSpO2 [id number]/6799% Date/Time09/24 16: 16: 16: 16:00 Range (68 - 78 ) (18 - 19 ) (102 - 117 )/ (57 - 73 ) (95% - 99% ) As of 24-Sep-2021 21:40:00, patient is on 2 L/min of oxygen via nasal cannula. Pain reported at 09/24 21:40: 8 = Severe ---- Intake and Output ----- Mn/Dy/Year TimeIntakeOutputNet Sep 23, 2021 10:00 [id number] Sep 23, 2021 6:00 [id number] The Intake and Output Totals for the last 24 hours are: IntakeOutputNet [id number] Physical Exam by System: Neurological: A&Ox3 RUE [...] the note. I personally evaluated the patient [id number] Electronic Signatures: Lex Frederick) (Signed 25-Sep-2021 11:57) Authored: Note Completion Co-Signer: Service, Subjective Data, Objective Data, Assessment and Plan, Note Completion Alfredo Hendrickson (Resident)) (Signed 25-Sep-2021 05:56) Authored: Service, Subjective Data, Objective Data, Assessment and Plan, Note Completion Last Updated: 25-Sep-2021 11:57 by Lex Frederick) Normal [facility] Rehab Uwqn-en-vakmdgpgb - co -tx /c OT to address multidiscipon 09-25-2021 Rehab Rsoi-iw-bcjgjbfvv - co-tx /c OT to address multidiscip Rehab: Info: Disciplinephysical radiation therapy technician Mode of Treatmentphysical therapy; co-treatment; co-tx /c OT to address multidisciplinary functional needs and maximize pt's safety. Time IN15:05 Time OUT15:59 Total Treatment [id number] Patient in ... at end of sessionbed, [...] scooting/bridging; rolling right; rolling left Roll Left Nuckolls (Bed Mobility)maximum assist (25% patient effort); 2 person assist; verbal cues; nonverbal cues (demo/gesture) Roll Right Nuckolls (Bed Mobility)maximum assist (25% patient effort); 2 person assist; verbal cues; nonverbal cues (demo/gesture) Scoot/Bridge Nuckolls (Bed Mobility)maximum assist (25% patient effort); 2 person assist; nonverbal cues (demo/gesture); verbal cues Ovmeoy-fb-Djd Nuckolls (Bed Mobility)maximum assist (25% patient effort); 2 person assist; verbal cues; nonverbal cues (demo/gesture) Irb-lx-Gxppkm Nuckolls (Bed Mobility)maximum assist (25% patient effort); 2 [...] unable to get to full standing. Sit-Stand Nuckolls (Transfers)maximum assist (25% patient effort); verbal cues; nonverbal cues (demo/gesture); 2-3 persona assist Sit-Stand Assistive Device (Transfers)walker, front-wheeled Stand-Sit Nuckolls (Transfers)maximum assist (25% patient effort); nonverbal cues [...] Score8 Short Term Goals: Bed Mobility: Date [id number]-Tlb-3147 Bed Mobility: Nuckolls Level Goalminimum assist (75% patients effort) Bed Mobility: Physical Assist Level Goal1-person assist, verbal cues Bed Mobility: Time Frame for Goal2 wks Transfer: Established Transfer: Transfer Type Skaqqjt-jq-snxhc/chair-to -bed; tfw-ou-lmkpv/rrklz-pm-ump Transfer: Nuckolls Level Goalmoderate assist (50% patients effort) Transfer: Physical Assist Level Goal1-person assist; verbal cues Transfer: Assistive Device Goalrolling walker Transfer: Time Frame for Goal2 wks Gait: Established Gait: Nuckolls Level Goalmoderate assist (50% patients effort) Gait: [...] goals is gradual Electronic Signatures: Yosi Campbell (MANHOLE STRIPPER) (Signed 25-Sep-2021 16:59) Entered: Outcome Summary, Short Term Goals, Sensory, TherEx, Outcomes Tools, Info, Mobility/Tone Authored: Short Term Goals, Outcome Summary, TherEx, Outcomes Tools, Info, Mobility/Tone, Sensory Boone Broussard (PT) (Signed 01-Oct-2021 09:01) Co-Signer: Outcome Summary, Short Term Goals, Sensory, TherEx (more content not included)... Normal [facility] Rehab Note-occupational health physician apy - Partial co-tx with PT to tue09-25-2021 Rehab Note-occupational therapy - Partial co-tx with PT to Rehab: Info: Disciplineoccupational therapist Mode of Treatmentoccupational therapy; Partial co-tx with PT to maximize pt's mobility and safety. Time IN15:03 Time OUT15:56 Total Treatment [id number] Patient in ... at end of sessionbed, [...] sit to supine; rolling right Roll Left Nuckolls (Bed Mobility)Pt required assist to bend BLE at knees and to initiate turn at shoulders and hips, verbal cues for grasp on bed rail, technique, direction follow, and encouragement.; set up; verbal cues; maximum assist (25% patient effort); 2 person assist Roll Right Nuckolls (Bed Mobility)Pt required assist to bend BLE at knees and to initiate turn at shoulders and hips, verbal cues for grasp on bed rail, technique, direction follow, and encouragement.; set up; verbal cues; maximum assist (25% patient effort); 2 person assist Scoot/Bridge Nuckolls (Bed Mobility)boost HOB; set up; verbal cues; maximum assist (25% patient effort); 2 person assist Zavoyj-on-Uov Nuckolls (Bed Mobility)HOB elevated; set up; verbal cues; maximum assist (25% patient effort); 2 person assist Fmr-jt-Rkephd Nuckolls (Bed Mobility)HOB elevated; set up; verbal cues; maximum assist (25% patient effort); 2 person assist Assistive Device (Bed Mobility)bed rails; draw sheet Transfer Assessment/Interventionss it to stand transfer Sit-Stand Nuckolls (Transfers)set up; verbal cues; maximum assist (25% patient effort); x 2-3 assist Safety Issues Impacting Function (Mobility)ability to follow commands; awareness of need for assistance; insight into deficits/self awareness; judgment; problem solving Impairments Impacting Function (Mobility)balance; cognition; endurance/activity tolerance; pain; strength; postural/trunk control ADL: BADL Assessment/Interventionto ileting; feeding; grooming; lower body dressing; upper body dressing; bathing Nuckolls Level (Bathing)set up; verbal cues; moderate assist (50% patient effort); 1 person assist Comment (Bathing)anticipated due to impaired balance, strength, and pain. Nuckolls Level (Upper Body Dressing)set up; verbal cues; moderate assist (50% patient effort) Comment (Upper Body Dressing)anticipated due to impaired balance, strength, and pain. Nuckolls Level (Lower Body Dressing)don; socks; dependent (less than 25% patient effort) Position (Lower Body Dressing)supine Nuckolls Level (Grooming)set up; contact guard Comment (Grooming)anticipated due to impaired balance, strength, and pain. Nuckolls Level (Feeding)set up; modified independence Comment (Feeding)anticipated Nuckolls Level (Toileting)dependent (less than 25% patient effort); purewick Impairments, BADL Safety/Performancebalance ; cognition; endurance/activity tolerance; strength; trunk/postural control Cognitive Impairments, BADL Safety/Performanceawarene ss, need for assistance; insight into deficits/self awareness; judgment; problem solving/reasoning Motor: Sitting, Static (Balance)good balance SBA Sitting, Dynamic (Balance)fair balance CGA Rrs-mq-[id number] (Balance)poor balance Max A x 2-3 - attempted Standing, Static (Balance)unable to balance Standing, Dynamic (Balance)unable to balance Balance ActivitiesPt sat EOB ~30 minutes with SBA/CGA for safety. Pt demonstrated good sitting balance and trunk control. Pt attempted STS transfers 3x with (more content not included)... Normal [facility] Daily Progress Note-Nuha stearns 09-24-2021 Daily Progress Note-Neurosurgery Service: Neurosurgery Subjective Data: MORALES LEE is a 46 year old Female who is Hospital Day # 10 and POD #3 for posterior L4-L5 decompression;posterior L4-L5 arthrodesis. Objective Data: Objective Information: T PRBPSpO2 [id number]% Date/Time09/23 20:4809/23 20:4809/23 20:4809/23 20:4809/23 20:48 Range(35.5C - 36.1C ) (66 - 75 ) (16 - 19 ) (90 - 118 )/ (54 - 75 ) (98% - 99% ) As of 23-Sep-2021 22:43:00, patient is on 2 L/min of oxygen via nasal cannula. ---- Intake and Output ----- Mn/Dy/Year TimeIntakeOutputNet Sep 22, 2021 10:00 [id number] Sep 22, 2021 2:00 [id number] Sep 22, 2021 6:00 [id number] The Intake and Output Totals for the last 24 hours are: IntakeOutputNet [id number] Physical Exam by System: Neurological: A&Ox3 RUE [...] the note. I personally evaluated the patient [id number] Comments/ Additional Findings Doing well. Kyphotic posture and Back Pain from instability and traumatic chance fracture significantly improved as compared to preop. She developed weakness involving ankle PF/DF following congregation of alignment from buckling of hypertrophic ligamentum [...] for ambulation and PT for now and longterm if the weakness fails to improve over [...] to the (more content not included)... Normal [facility] MAGNESIUMon 09-24-2021 Magnesium [Mass/Vol] 1.71 mg/dL Normal 1.60 - 2.40 [facility] Comment on above: Performed By: #### A FPA3 #### [facility] [id number] [place] [address] Magnesium, Serumon 2 Magnesium [Mass/Vol] 1.71 mg/dL See Below MG-G astroen terraiza-Rosendo moura 6 [facility] Work Phone: Comment on above: Reference Range: 1.6 0 - 2.40 RENAL FUNCTION PANELon 09-24 Albumin [Mass/Vol] 2.6 g/dL Low 3.4 - 5.0 [facility] Comment on above: Performed By: #### R ENAL ####[id number] [place] [address] Anion gap [Moles/Vol] 10 mmol/L Normal 10 - 20 [facility] Comment on above: Performed By: #### R ENAL ####[id number] [place] [address] Calcium [Mass/Vol] 7.7 mg/dL Low 8.6 - 10.6 [facility] Comment on above: Performed By: #### R ENAL ####[id number] [place] [address] Chloride [Moles/Vol] 108 mmol/L High 98 - 107 [facility] Comment on above: Performed By: #### R ENAL ####[id number] [place] [address] Creatinine [Mass/Vol] 0.39 mg/dL Low 0.50 - 1.05 [facility] Comment on above: Performed By: #### R ENAL ####[id number] [place] [address] eGFR FEMALE >90 Normal >90 [facility] Comment on above: Result Comment: CALC ULATIONS OF ESTIMATED GFR ARE PERFORMED USING THE 2020 CKD-EPI STUDY REFIT EQUATION WITHOUT THE RACE VARIABLE FOR THE IDMS-TRACEABLE CREATININE METHODS. https://jasn.asnjournals.org/content/ASN.687 6326256 Performed By: #### R ENAL ####[id number] [place] [address] Glucose [Mass/Vol] 92 mg/dL Normal 74 - 99 [facility] Comment on above: Performed By: #### R ENAL ####[id number] [place] [address] HCO3 (Bld) [Moles/Vol] 29 mmol/L Normal 21 - 32 [facility] Comment on above: Performed By: #### R ENAL ####[id number] [place] [address] Phosphate [Mass/Vol] 3.3 mg/dL Normal 2.5 - 4.9 [facility] Comment on above: Result Comment: The performance characteristics of phosphorus testing in heparinized plasma have been validated by the individual laboratory site where testing is performed. Testing on heparinized plasma is not approved by the FDA; however, such approval is not necessary. Performed By: #### R ENAL ####[id number] [place] [address] Potassium [Moles/Vol] 3.9 mmol/L Normal 3.5 - 5.3 [facility] Comment on above: Performed By: #### R ENAL ####[id number] [place] [address] Sodium [Moles/Vol] 143 mmol/L Normal 136 - 145 [facility] Comment on above: Performed By: #### R ENAL ####[id number] [place] [address] Urea nitrogen [Mass/Vol] 5 mg/dL Low 6 - 23 [facility] Comment on above: Performed By: #### R ENAL ####[id number] [place] [address] Rehab Note-attemptedon 09-24 Rehab Note-attempted Rehab: Info: Mode of Treatmentattempted Time IN15:00 Reason Treatment Not Performedpatient/family declined treatment; Pt declined participation in OT treatment stating she was on a very important call that she needed to take. Electronic Signatures: Silvana Marshall (OT) (Signed 24-Sep-2021 15:29) Authored: Info Last Updated: 24-Sep-2021 15:29 by Silvana Marsahll (OT) Normal [facility] Rehab Note-physical therapyo n 09-24-2021 Rehab Note-physical [...] 24-Sep-2021 15:07 by Boone Broussard (PT) Normal [facility] Renal Function Panelon 09-24 Albumin BCP dye [...] RACE VARIABLE FOR THE IDMS-TRACEABLE CREATININE METHODS.https://jasn.asnjournals.org/content/ /ASN.3543483208 CBCon 09-23-2021 Erythrocyte distribution width (RBC) [Ratio] 13.1 % Normal 11.5 - 14.5 [facility] Comment on above: Performed By: #### C BC ####[id number] [place] [address] Hematocrit (Bld) [Volume fraction] 30.5 % Low 36.0 - 46.0 [facility] Comment on above: Performed By: #### C BC ####[id number] [place] [address] Hemoglobin (Bld) [Mass/Vol] 9.9 g/dL Low 12.0 - 16.0 [facility] Comment on above: Performed By: #### C BC ####[id number] [place] [address] MCHC (RBC) [Mass/Vol] 32.5 g/dL Normal 32.0 - 36.0 [facility] Comment on above: Performed By: #### C BC ####[id number] [place] [address] MCV (RBC) [Entitic vol] 92 fL Normal 80 - 100 [facility] Comment on above: Performed By: #### C BC ####[id number] [place] [address] NUCLEATED RBC 0.0 /100 WBC Normal 0.0-0.0 [facility] Comment on above: Performed By: #### C BC ####[id number] [place] [address] Platelets (Bld) [#/Vol] 244 10*3/uL Normal 150 - 450 [facility] Comment on above: Performed By: #### C BC ####[id number] [place] [address] RBC 3.33 x10E12/L Low 4.00 - 5.20 [facility] Comment on above: Performed By: #### C BC ####[id number] [place] [address] WBC (Bld) [#/Vol] 8.6 10*3/uL Normal 4.4 - 11.3 [facility] Comment on above: Performed By: #### C BC ####[id number] [place] [address] CBC AND DIFFERENTIALon 09-23 % AUTOMATED IMMATURE GRAN 0.4 % Normal 0.0 - 0.9 [facility] Comment on above: Result Comment: Jaleesa ture Granulocyte Count (IG) includes promyelocytes, myelocytes and metamyelocytes but does not include bands. Percent differential counts (%) should be interpreted in the context of the absolute cell counts (cells/L). Performed By: #### C BC #### [facility] [address] [place] [address] Basophils (Bld) [#/Vol] 0.03 10*3/uL Normal 0.00 - 0.10 [facility] Comment on above: Performed By: #### C BC #### [facility] [address] [place] [address] Basophils/100 WBC (Bld) 0.4 % Normal 0.0 - 2.0 U [facility] Comment on above: Performed By: #### C BC #### [facility] [address] [place] [address] Eosinophils (Bld) [#/Vol] 0.27 10*3/uL Normal 0.00 - 0.70 [facility] Comment on above: Performed By: #### C BC #### [facility] [address] [place] [address] Eosinophils/100 WBC (Bld) 3.6 % Normal 0.0 - 6.0 [facility] Comment on above: Performed By: #### C BC #### [facility] [address] [place] [address] Erythrocyte distribution width (RBC) [Ratio] 13.2 % Normal 11.5 - 14.5 [facility] Comment on above: Performed By: #### C BC #### [facility] [address] [place] [address] Hematocrit (Bld) [Volume fraction] 30.9 % Low 36.0 - 46.0 [facility] Comment on above: Performed By: #### C BC #### [facility] [address] [place] [address] Hemoglobin (Bld) [Mass/Vol] 10.4 g/dL Low 12.0 - 16.0 [facility] Comment on above: Performed By: #### C BC #### [facility] [address] [place] [address] Lymphocytes (Bld) [#/Vol] 2.41 10*3/uL Normal 1.20 - 4.80 [facility] Comment on above: Performed By: #### C BC #### [facility] [address] [place] [address] Lymphocytes/100 WBC (Bld) 31.9 % Normal 13.0 - 44.0 [facility] Comment on above: Performed By: #### C BC #### [facility] [address] [place] [address] MCHC (RBC) [Mass/Vol] 33.7 g/dL Normal 32.0 - 36.0 [facility] Comment on above: Performed By: #### C BC #### [facility] [address] [place] [address] MCV (RBC) [Entitic vol] 91 fL Normal 80 - 100 [facility] Comment on above: Performed By: #### C BC #### [facility] [address] [place] [address] Monocytes (Bld) [#/Vol] 0.49 10*3/uL Normal 0.10 - 1.00 [facility] Comment on above: Performed By: #### C BC #### [facility] [address] [place] [address] Monocytes/100 WBC (Bld) 6.5 % Normal 2.0 - 10.0 [facility] Comment on above: Performed By: #### C BC #### [facility] [address] [place] [address] Neutrophils (Bld) [#/Vol] 4.32 10*3/uL Normal 1.20 - 7.70 [facility] Comment on above: Performed By: #### C BC #### [facility] [address] [place] [address] Neutrophils/100 WBC (Bld) 57.2 % Normal 40.0 - 80.0 [facility] Comment on above: Performed By: #### C BC #### [facility] [address] [place] [address] NUCLEATED RBC 0.0 /100 WBC Normal 0.0-0.0 [facility] Comment on above: Performed By: #### C BC #### [facility] [address] [place] [address] Platelets (Bld) [#/Vol] 228 10*3/uL Normal 150 - 450 [facility] Comment on above: Performed By: #### C BC #### [facility] [address] [place] [address] RBC 3.39 x10E12/L Low 4.00 - 5.20 [facility] Comment on above: Performed By: #### C BC #### [facility] [address] [place] [address] WBC (Bld) [#/Vol] 7.6 10*3/uL Normal 4.4 - 11.3 [facility] Comment on above: Performed By: #### C BC #### [facility] [address] [place] [address] Complete Blood Count + Diffe sojnaon 09-23-2021 Basophils/100 WBC (Bld) 0.4 % 0.0 - 2.0 M G-Gastroen terology-Rosendo lwell 6 [facility] Work Phone: Erythrocyte distribution width (RBC) [Ratio] 13.2 % See Below MG-Gastroen terology-Rosendo lwell 6 [facility] Work Phone: Comment on above: Reference Range: 11. 5 - 14.5 Hematocrit (Bld) [Volume fraction] 30.9 % below low threshold See Below MG-Gastroen terology-Rosendo lwell 6 [facility] Work Phone: Comment on above: Reference Range: 36. 0 - 46.0 Hemoglobin (Bld) [Mass/Vol] 10.4 g/dL below low threshold See Below MG-Gastroen terology-Rosendo lwell 6 [facility] Work Phone: Comment on above: Reference Range: 12. 0 - 16.0 Lymphocytes/100 WBC (Bld) 31.9 % See Below MG-Gastroen terology-Rosendo lwell 6 [facility] Work Phone: Comment on above: Reference [...] Differential 2.41 {x10E9/L} See Below MG-Gastroen terology-Rosendo gretaell 6 [facility] Work Phone: Comment on above: Reference Range: 1.2 0 - 4.80 Complete Blood Count + Differential 4.32 {x10E9/L} See Below MG-Gastroen terology-Rosendo gretaell 6 [facility] Work Phone: Comment on above: Reference Range: 1.2 0 - 7.70 Complete Blood Count + Differential 3.6 % 0.0 - 6.0 MG-Gastroen terology-Rosendo gretaell 6 [facility] Work Phone: Complete Blood Count + Differential 0.4 % 0.0 - 0.9 MG-Gastroen torresology-Rosendo [facility] 6 [facility] Work Phone: Comment on above: Immature Granulocyte Count (IG) includes promyelocytes, myelocytes and metamyelocytes but does not include bands. Percent differential counts (%) should be interpreted in the context of the absolute cell counts (cells/L). Complete Blood Count + Differential 0.0 {/100_WBC} 0.0-0.0 MG-Gastroen carlos alberto-Rosendo moura 6 [facility] Work Phone: Laboratory - Hematology and Cell countson 09-23-2021 Erythrocyte distribution width (RBC) [Ratio] 13.1 % See Below MG-Gastroen terology-Rosendo gretaell 6 [facility] Work Phone: Comment on above: Reference Range: 11. 5 - 14.5 Hematocrit (Bld) [Volume fraction] 30.5 % below low threshold See Below MG-Gastroen terology-Rosendo gretaell 6 [facility] Work Phone: Comment on above: Reference Range: 36. 0 - 46.0 Hemoglobin (Bld) [Mass/Vol] 9.9 g/dL below low threshold See Below MG-Gastroen terology-Rosendo ell 6 [facility] Work Phone: Comment on above: Reference Range: 12. 0 - 16.0 MCHC (RBC) [Mass/Vol] 32.5 g/dL See Below MG- Gastroen terology-Rosendo lwell 6 I Work Phone: Comment on above: Reference Range: 32. 0 - 36.0 MCV (RBC) [Entitic vol] 92 fL 80 - 100 M G-Gastroen terology-Rosendo [...] [Mass/Vol] 1.68 mg/dL Normal 1.60 - 2.40 [facility] Comment on above: Performed By: #### C BC #### [facility] [address] [address] Magnesium, Serumon 2 Magnesium [Mass/Vol] 1.68 mg/dL See Below MG-G astroen terology-Rosendo lwell 6 [facility] Work Phone: Comment on above: Reference Range: 1.6 0 - 2.40 No Panel Informationon 09-23 0.0 {/100_WBC} 0.0-0.0 MG-Gastroe n terology-Rosendo lwell 6 [facility] Work Phone: Order Reconciliationon 09-23 Order Reconciliation Page 1 Discharge Reconciliation Document Reconciliation Type: Discharge requested on behalf of Ambrocio Izaguirre (Advanced Practice Nurse) done by Ambrocio Izaguirre (FINANCIAL SYSTEMS ADMINISTRATOR-FLY FISHING GUIDE) Discharge - Partial Reconciliation: 23-Sep-2021 13:21 by: Ambrocio Izaguirre ([facility]) Discharge - Partial Reconciliation: 24-Sep-2021 10:12 by: Ambrocio Izaguirre ([facility]) Discharge - Partial Reconciliation: 30-Sep-2021 14:12 by: Concetta Shi ([facility]) Discharge - Partial Reconciliation: 30-Sep-2021 14:14 by: Concetta Shi ([facility]) Discharge - Reconciliation: 30-Sep-2021 14:24 by: Concetta Shi ([facility]) Discharge - Reset to Incomplete: 02-Oct-2021 15:36 by: Ambrocio Izaguirre ([facility]) Discharge - Reconciliation: 02-Oct-2021 15:40 by: Ambrocio Izaguirre ([facility]) Discharge - Reset to Incomplete: 02-Oct-2021 15:57 by: Ambrocio Izaguirre ([facility]) Discharge - Reconciliation: 02-Oct-2021 15:58 by: Ambrocio Izaguirre ([facility]) Home Medications EnteredHOME MEDICATIONS AT [...] foot drop 23-Sep-2021 19:36 Discontinued; Discontinue from OR Ankle Foot Orthosis is not required calcium-vitamin [...] EnteredInError diclofenac topical 1% topical gel 1 wade topical prn 12-Dec-2020 09:55 Discontinued; Discontinue from [...] not required (more content not included)... Normal [facility] PATH REVIEW-IMMUNOHEMATOLOGY on 09-23-2021 PATH REV-IMMUNOHEMOTOL LETA Normal [facility] Comment on above: Result Comment: By h [...] PATIENT. Performed By: #### A FPA3 #### [facility] [address] [place] [address] RENAL FUNCTION PANELon 09-23 Albumin [Mass/Vol] 2.7 g/dL Low 3.4 - 5.0 [facility] Comment on above: Performed By: #### V FPA3 #### [facility] [address] [place] [address] Anion gap [Moles/Vol] 10 mmol/L Normal 10 - 20 [facility] Comment on above: Performed By: #### V FPA3 #### [place] [address] [place] [address] Calcium [Mass/Vol] 7.9 mg/dL Low 8.6 - 10.6 [facility] Comment on above: Performed By: #### V FPA3 #### [facility] [address] [place] [address] Chloride [Moles/Vol] 108 mmol/L High 98 - 107 [facility] Comment on above: Performed By: #### V FPA3 #### [place] [address] [place] [address] Creatinine [Mass/Vol] 0.39 mg/dL Low 0.50 - 1.05 [facility] Comment on above: Performed By: #### V FPA3 #### [facility] [address] [place] [address] eGFR FEMALE >90 Normal >90 [facility] Comment on above: Result Comment: CALC ULATIONS OF ESTIMATED GFR ARE PERFORMED USING THE 2020 CKD-EPI STUDY REFIT EQUATION WITHOUT THE RACE VARIABLE FOR THE IDMS-TRACEABLE CREATININE METHODS. https://jasn.asnjournals.org/content//ASN.163 [id number] Performed By: #### V FPA3 #### [facility] [address] [place] [address] Glucose [Mass/Vol] 87 mg/dL Normal 74 - 99 [facility] Comment on above: Performed By: #### V FPA3 #### [facility] [address] [place] [address] HCO3 (Bld) [Moles/Vol] 29 mmol/L Normal 21 - 32 [facility] Comment on above: Performed By: #### V FPA3 #### [facility] [address] [place] [address] Phosphate [Mass/Vol] 2.7 mg/dL Normal 2.5 - 4.9 [facility] Comment on above: Result Comment: The performance characteristics of phosphorus testing in heparinized plasma have been validated by the individual laboratory site where testing is performed. Testing on heparinized plasma is not approved by the FDA; however, such approval is not necessary. Performed By: #### V FPA3 #### [facility] [address] [place] [address] Potassium [Moles/Vol] 3.6 mmol/L Normal 3.5 - 5.3 [facility] Comment on above: Performed By: #### V FPA3 #### [facility] [address] [place] [address] Sodium [Moles/Vol] 143 mmol/L Normal 136 - 145 [facility] [facility] Comment on above: Performed By: #### V FPA3 #### [facility] [id number] [place] [address] Urea nitrogen [Mass/Vol] 9 mg/dL Normal 6 - 23 [facility] Comment on above: Performed By: #### V FPA3 #### [facility] [address] [place] [address] Rehab Note-individual therap yon 09-23-2021 Rehab Note-individual therapy Rehab: Info: Disciplinephysical therapist Mode of Treatmentphysical therapy; individual therapy Time IN14:50 Time OUT15:29 Total Treatment [id number] Patient in ... at end of sessionbed, [...] sit to supine; rolling right Roll Left Nuckolls (Bed Mobility)verbal cues; maximum assist (25% patient effort); 1 person assist Roll Right Nuckolls (Bed Mobility)maximum assist (25% patient effort); verbal cues; 1 person assist Scoot/Bridge Nuckolls (Bed Mobility)verbal cues; maximum assist (25% patient effort); 2 person assist; boost HOB Vnnpar-zv-Tyz Nuckolls (Bed Mobility)verbal cues; maximum assist (25% patient effort); 1 person assist Lhx-kl-Fuustr Nuckolls (Bed Mobility)set up; verbal cues; maximum assist (25% patient effort); 1 person assist Assistive Device (Bed Mobility)bed rails; draw sheet Transfer Assessment/Interventionss it to stand transfer; stand to sit transfer Sit-Stand Nuckolls (Transfers)2 person assist; moderate assist (50% patient effort) Sit-Stand Assistive Device (Transfers)B arm-in-arm assist Stand-Sit Nuckolls (Transfers)2 person assist; moderate assist (50% patient [...] 23-Sep-2021 15:50 by Boone Broussard (PT) Normal [facility] Renal Function Panelon 09-23 Albumin BCP dye [...] - 99 MG-Gas troen terology-[facility] [place] 6 [facility] Work Phone: Phosphate [Mass/Vol] 2.7 mg/dL 2.5 - 4.9 MG-G astroen terology-[place] lwell 6 [facility] Work Phone: Comment on above: The performance arsalan acteristics of phosphorus testing in heparinized plasma have been validated by the individual laboratory site where testing is performed. Testing on heparinized plasma is not approved by the FDA; however, such approval is not necessary. Potassium [Moles/Vol] 3.6 mmol/L 3.5 - 5.3 MG- Gastroen terology-[place]well 6 [facility] Work Phone: Sodium [Moles/Vol] 143 mmol/L 136 - 145 MG-Gas troen terology-[place]well 6 [facility] Work Phone: Urea nitrogen [Mass/Vol] 9 mg/dL 6 - 23 MG-Gastroen terology-[place] [place]well 6 [facility] Work Phone: Renal Function Panel >90 >90 MG-G astroen terology-[place] lwell 6 [facility] Work Phone: Comment on above: CALCULATIONS OF IVY MATED GFR ARE PERFORMED USING THE 2020 CKD-EPI STUDY REFIT EQUATION WITHOUT THE RACE VARIABLE FOR THE IDMS-TRACEABLE CREATININE METHODS.https://jasn.asnjournals.org/content/ /ASN.8571350882 ANTIBODY IDENT.on 09-22-2021 ANTIBODY IDENT. Anti-E Normal [facility] Comment on above: Performed By: #### V FPA3 #### [facility] [address] [place] [address] CBCon 09-22-2021 Erythrocyte distribution width (RBC) [Ratio] 13.2 % Normal 11.5 - 14.5 [facility] Comment on above: Performed By: #### V FPA3 #### [facility] [address] [place] [address] Hematocrit (Bld) [Volume fraction] 30.6 % Low 36.0 - 46.0 [facility] Comment on above: Performed By: #### V FPA3 #### [facility] [address] [place] [address] Hemoglobin (Bld) [Mass/Vol] 10.2 g/dL Low 12.0 - 16.0 [facility] Comment on above: Performed By: #### V FPA3 #### [facility] [address] [place] [address] MCHC (RBC) [Mass/Vol] 33.3 g/dL Normal 32.0 - 36.0 [facility] Comment on above: Performed By: #### V FPA3 #### [facility] [address] [place] [address] MCV (RBC) [Entitic vol] 91 fL Normal 80 - [address] [facility] Comment on above: Performed By: #### V FPA3 #### [facility] [address] [place] [address] NUCLEATED RBC 0.0 /100 WBC Normal 0.0-0.0 [facility] Comment on above: Performed By: #### V FPA3 #### [facility] [address] [place] [address] Platelets (Bld) [#/Vol] 215 10*3/uL Normal 150 - 450 [facility] Comment on above: Performed By: #### V FPA3 #### [facility] [address] [place] [address] RBC 3.37 x10E12/L Low 4.00 - 5.20 [facility] Comment on above: Performed By: #### V FPA3 #### [facility] [address] [place] [address] WBC (Bld) [#/Vol] 9.6 10*3/uL Normal 4.4 - 11.3 [facility] Comment on above: Performed By: #### V FPA3 #### [facility] [address] [place] [address] CBC AND DIFFERENTIALon 09-22 % AUTOMATED IMMATURE GRAN 0.4 % Normal 0.0 - 0.9 [facility] Comment on above: Result Comment: Jaleesa ture Granulocyte Count (IG) includes promyelocytes, myelocytes and metamyelocytes but does not include bands. Percent differential counts (%) should be interpreted in the context of the absolute cell counts (cells/L). Performed By: #### C BCDF ####[id number] [place] [address] Basophils (Bld) [#/Vol] 0.02 10*3/uL Normal 0.00 - 0.10 [facility] Comment on above: Performed By: #### C BCDF ####[id number] [place] [address] Basophils/100 WBC (Bld) 0.2 % Normal 0.0 - 2.0 U [facility] Comment on above: Performed By: #### C BCDF ####[id number] [place] [address] Eosinophils (Bld) [#/Vol] 0.04 10*3/uL Normal 0.00 - 0.70 [facility] Comment on above: Performed By: #### C BCDF ####[id number] [place] [address] Eosinophils/100 WBC (Bld) 0.4 % Normal 0.0 - 6.0 [facility] Comment on above: Performed By: #### C BCDF ####[id number] [place] [address] Erythrocyte distribution width (RBC) [Ratio] 13.2 % Normal 11.5 - 14.5 [facility] Comment on above: Performed By: #### C BCDF ####[id number] [place] [address] Hematocrit (Bld) [Volume fraction] 30.6 % Low 36.0 - 46.0 [facility] Comment on above: Performed By: #### C BCDF ####[id number] [place] [address] Hemoglobin (Bld) [Mass/Vol] 10.3 g/dL Low 12.0 - 16.0 [facility] Comment on above: Performed By: #### C BCDF ####[id number] [place] [address] Lymphocytes (Bld) [#/Vol] 2.19 10*3/uL Normal 1.20 - 4.80 [facility] Comment on above: Performed By: #### C BCDF ####[id number] [place] [address] Lymphocytes/100 WBC (Bld) 19.9 % Normal 13.0 - 44.0 [facility] Comment on above: Performed By: #### C BCDF ####[id number] [place] [address] MCHC (RBC) [Mass/Vol] 33.7 g/dL Normal 32.0 - 36.0 [facility] Comment on above: Performed By: #### C BCDF ####[id number] [place] [address] MCV (RBC) [Entitic vol] 90 fL Normal 80 - 100 [facility] Comment on above: Performed By: #### C BCDF ####[id number] [place] [address] Monocytes (Bld) [#/Vol] 0.71 10*3/uL Normal 0.10 - 1.00 [facility] Comment on above: Performed By: #### C BCDF ####[id number] [place] [address] Monocytes/100 WBC (Bld) 6.5 % Normal 2.0 - 10.0 [facility] Comment on above: Performed By: #### C BCDF ####[id number] [place] [address] Neutrophils (Bld) [#/Vol] 7.98 10*3/uL High 1.20 - 7.70 [facility] Comment on above: Performed By: #### C BCDF ####[id number] [place] [address] Neutrophils/100 WBC (Bld) 72.6 % Normal 40.0 - 80.0 [facility] Comment on above: Performed By: #### C BCDF ####[id number] [place] [address] NUCLEATED RBC 0.0 /100 WBC Normal 0.0-0.0 [facility] Comment on above: Performed By: #### C BCDF ####[id number] [place] [address] Platelets (Bld) [#/Vol] 242 10*3/uL Normal 150 - 450 [facility] Comment on above: Performed By: #### C BCDF ####[id number] [place] [address] RBC 3.39 x10E12/L Low 4.00 - 5.20 [facility] Comment on above: Performed By: #### C BCDF ####[id number] [place] [address] WBC (Bld) [#/Vol] 11.0 10*3/uL Normal 4.4 - 11.3 [facility] Comment on above: Performed By: #### C BCDF ####[id number] [place] [address] Complete Blood Count + Diffe rentialon 09-22-2021 Basophils/100 WBC (Bld) 0.2 % 0.0 - 2.0 M G-Gastroen terology-[place] [facility] 6 [facility] Work Phone: Erythrocyte distribution width (RBC) [Ratio] 13.2 % See Below MG-Gastroen terology-[place] lwell 6 [facility] Work Phone: Comment on above: Reference Range: 11. 5 - 14.5 Hematocrit (Bld) [Volume fraction] 30.6 % below low threshold See Below MG-Gastroen terology-[place] 6 [facility] Work Phone: Comment on above: Reference Range: 36. 0 - 46.0 Hemoglobin (Bld) [Mass/Vol] 10.3 g/dL below low threshold See Below MG-Gastroen terology-[place] 6 [facility] Work Phone: Comment on above: Reference [...] + Differential 0.0 {/100_WBC} 0.0-0.0 MG-Gastroen terology-Rosendo [facility] 6 [facility] Work Phone: Complete Blood Count + Differential 0.02 {x10E9/L} See Below MG-Gastroen terology-Rosendo [facility] 6 [facility] Work Phone: Comment on above: Reference Range: 0.0 0 - 0.10 Complete Blood Count + Differential 0.04 {x10E9/L} See Below MG-Gastroen terology-Rosendo [address] Work Phone: Comment on above: Reference Range: 0.0 0 - 0.70 Complete Blood Count + Differential 0.71 {x10E9/L} See Below [facility] [address] Work Phone: Comment on above: Reference Range: 0.1 0 - 1.00 Complete Blood Count + Differential 2.19 {x10E9/L} See Below MG-Gastroen terology-Rosendo [address] Work Phone: Comment on above: Reference Range: 1.2 0 - 4.80 Complete Blood Count + Differential 7.98 {x10E9/L} above high threshold See Below MG-Gastroen terology-[place] [address] Work Phone: Comment on above: Reference Range: 1.2 0 - 7.70 Cult, Urineon 09-22-2021 Bacteria identified Cx Nom (U) -Gastroen [facility]-[address] Work Phone: Daily Progress Note - Psychi atryon 09-22-2021 Daily Progress Note - Psychiatry Subjective Data: MORALES LEE is a 46 year old Female who is Hospital Day # 8. Pt seen lying in bed this morning, with at bedside. 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 Objective: Objective Information: T PRBPSpO2 [id number]/5792% Date/Time118 0:001/18 8:001/18 8:001/18 8:001/18 8:00 Range(36.3C - [...] Fair. Medications: Continuous Medications ------- 1. HYDROmorphone GR[employer] TEACHING [employer]OCIATE 25 mg/ NaCL 0.9% 50 mL: 2.6 mg/hr IV [employer]IATE 2. Sodium Chloride 0.9% Infusion: 1000 mL [...] I have reviewed these laboratory results in [facility]: Complete Blood Count + Differential 22-Sep-2021 05:01:00 [...] from Suboxone (more content not included)... Normal [facility] Daily Progress Note-Nuha stearns 09-22-2021 Daily Progress Note-Neurosurgery Service: Neurosurgery Subjective Data: MORALES LEE is a 46 year old Female who is Hospital Day # 8 and POD #1 for posterior L4-L5 decompression;posterior L4-L5 arthrodesis. Objective Data: Objective Information: T PRBPSpO2 Value36.2800102/5895% Date/Time09/22 0:001 0:001 0:001/18 0:001/18 0:00 Range(36.2C - 36.8C ) (82 - 109 ) (12 - 20 ) (85 - 132 )/ (49 - 89 ) (94% - 100% ) As of 21-Sep-2021 17:00:00, patient is on 4 L/min of oxygen via nasal cannula. Pain reported at 09/21 16:33: 5 = Moderate ---- Intake and Output ----- Mn/Dy/Year TimeIntakeOutputNet Sep 20, 2021 10:00 [id number] Sep 20, 2021 6:00 [id number] The Intake and Output Totals for the last 24 hours are: IntakeOutputNet [id number] Physical Exam by System: Neurological: A&Ox3 RUE [...] Chronic pain recs- intra-op ketamine, meloxicam post-op, GR[employer] TEACHING [employer]OCIATE until good PT eval, Suboxone as OP [...] the note. I personally evaluated the patient [id number] Electronic Signatures: Fidel Maciel (Resident)) (Signed 22-Sep-2021 00:35) Authored: Service, Subjective Data, Objective Data, Assessment and Plan, Note Completion Lex Frederick) (Signed 18-Benjamin-2022 10:31) Authored: Note Completion Co-Signer: Service, Subjective Data, Objective Data, Assessment and Plan, Note Completion Last Updated: 22-Sep-2021 10:31 by Lex Frederick) Normal [facility] Discharge [id number] Discharge Profile2 Discharge Orders: Anticipated Discharge Date: Anticipated Discharge [id number] Problem List: Additional Dx: Spinal stenosis of [...] Please call your Neurosurgeon's office (Dr. Frederick [phone]) if you have any questions. -If you [...] or twist. Instead, bend at knees to sampler pickup objects. Wound Care: Inspect your incision daily [...] taking Acetamin (more content not included)... Normal [facility] LACTATEon 09-22-2021 Lactate [Moles/Vol] 0.8 mmol/L Normal 0.4 - 2.0 [facility] Comment on above: Result Comment: Trina puncture immediately after or during the administration of Metamizole may lead to falsely low results. Testing should be performed immediately prior to Metamizole dosing. Performed By: #### C #### [facility] [address] [place] [address] Laboratory - Hematology and Cell countson 09-22-2021 Erythrocyte distribution width (RBC) [Ratio] 13.2 % See Below MG-Gastroen terology-[place]well 6 [facility] Work Phone: Comment on above: Reference Range: 11. 5 - 14.5 Hematocrit (Bld) [Volume fraction] 30.6 % below low threshold See Below MG-Gastroen terology-[place] 6 [facility] Work Phone: Comment on above: Reference Range: 36. 0 - 46.0 Hemoglobin (Bld) [Mass/Vol] 10.2 g/dL below low threshold See Below MG-Gastroen [facility]ology-[facility] Work Phone: Comment on above: Reference Range: 12. 0 - 16.0 MCHC (RBC) [Mass/Vol] 33.3 g/dL See Below MG- Gastroen terology-[facility]well [facility] Work Phone: Comment on above: Reference Range: 32. 0 - 36.0 MCV (RBC) [Entitic vol] 91 fL 80 - 100 M G-Gastroen terology-[place] [address] Work Phone: Platelets (Bld) [#/Vol] 215 10*3/uL [...] 09-22 0.0 {/100_WBC} 0.0-0.0 MG-Gastroe n terology-Rosendo gretaell 6 I Work Phone: OT Evaluation v2-occupationa l therapy - co-eval with PT to mon 09-22-2021 OT Evaluation v2-occupational therapy - co-eval with PT to Rehab: Info: Mode of Treatmentoccupational therapy; co-eval with PT to maximize pt's mobility and safety. Time IN10:50 Time OUT11:40 Total Treatment [id number] Patient in ... at end of sessionbed, 3 railings up; alarm on Communicated with ... at end of sessionbedside nurse Patient Effortgood Symptoms Noted During/After Treatmentfatigue; increased pain Patient Profile Reviewedyes Onset of Illness/Injury or Date of [id number] Reason for Referral-09/18/21: s/p exploration of spinal [...] EOB sitting. Pertinent History of Current Functional Nzkwhee69 y/o with hx of HTN, C6-7 ACDF, [...] TubesIV; triple lumen; telemetry; urethral catheter indwelling; GRADUATE TEACHING ASSOCIATE pump, DAVOL drain, wound vac O2 Deliverynasal cannula; 4L Pre Treatment Patient Positionsupine Pre Treatment Blood Pressure Idgluapg63 mmHg Pre Treatment Diastolic (mm Hg)46 mmHg Pre Treatment Heart Rate (beats/min)67 Pre Treatment Respiratory Rate (breaths/min)19 Pre Treatment SpO2 (%)96 % Pre Treatment Oxygen Deliverysupplemental O2 Pre Treatment CommentsMAP 56 During Treatment Patient Positionsitting During Treatment Blood Pressure Gfcioyfb00 mmHg During Treatment Diastolic (mm Hg)77 mmHg [...] to sit; sit to supine Roll Left Nuckolls (Bed Mobility)set up; verbal cues; 2 person assist; Pt required assist to bend BLE at (more content not included)... Normal [facility] PATH REVIEW-IMMUNOHEMATOLOGY on 09-22-2021 PATH REV-IMMUNOHEMOTOL ZURDO Normal [facility] Comment on above: Result Comment: By h [...] THIS PATIENT. Performed By: #### C #### [facility] [address] [place] [address] PT Evaluation l5-bx-oletgdmo t - co-treatment with OT to billion 09-22-2021 PT Evaluation c2-vc-jiljsuiew - co-treatment with OT to bill Rehab: Info: Mode of Treatmentphysical therapy; co-treatment; co-treatment with OT to maximize safety, mobility and ADL participation Time IN10:50 Time OUT11:40 Total Treatment [id number] Patient in ... at end of sessionbed, 3 railings up; alarm on Communicated with ... at end of sessionbedside nurse Patient Effortgood Symptoms Noted During/After Treatmentfatigue; increased pain Patient Profile Reviewedyes Onset of Illness/Injury or Date of [id number] Reason for Referral-09/18/21: s/p exploration of spinal [...] TubesIV; triple lumen; telemetry; urethral catheter indwelling; GR[employer]UATE TEACHING ASSOCIATE pump, DAVOL drain, wound vac O2 Deliverynasal cannula; 4L Pre Treatment Patient Positionsupine Pre Treatment Blood Pressure Oodjnpet41 mmHg Pre Treatment Diastolic (mm Hg)46 mmHg Pre Treatment Heart Rate (beats/min)67 Pre Treatment SpO2 (%)96 % Pre Treatment Oxygen Deliverysupplemental O2 During Treatment Patient Positionsitting During Treatment Blood Pressure Tomgwisw08 mmHg During Treatment Diastolic (mm Hg)77 mmHg [...] sit to supine; rolling right Roll Left Nuckolls (Bed Mobility)verbal cues; 2 person assist; Pt required assist to bend BLE at knees and to initiate turn at shoulders and hips, verbal cues for grasp on bed rail, technique, direction follow, and encouragement.; maximum assist (25% patient effort) Roll Right Nuckolls (Bed Mobility)2 person assist; maximum assist (25% patient effort); verbal cues Scoot/Bridge Nuckolls (Bed Mobility)verbal cues; maximum assist (25% patient effort); 2 person assist; boost HOB Uyuncm-fj-Rlh Nuckolls (Bed Mobility)verbal cues; maximum assist (25% patient effort); 1 person assist Zol-cb-Xmlpvc Nuckolls (Bed Mobility)set up; verbal cues; maximum assist (25% patient effort); 1 person assist Assistive Device (Bed Mobility)bed rails; draw sheet Impairments Impacting Function (Mobility)balance; cognition; endurance/activity tolerance; pain; strength; postural/trunk control; motor control Motor: Sitting, Static (Balance)SBA Sitting, Dynamic (Balance)CGA Uaf-oy-Tfmva (Balance)MADELIN this visit. Pt hypotensive Sensory: Pre-Treatment Pain Rating7/10 Post-Treatment Pain Rating7/10 Comment, Pre/Post Treatment PainPt reported pain throughout buttocks and back, utilized GR[employer] TEACHING ASSOCIATE pump as needed. Pain LimitationFunctional mobility limited due pain; ADLs/IADLs limited due to pain; Participation limited by pain; RN or team was notified of limitations due to p (more content not included)... Normal [facility] RENAL FUNCTION PANELon 09-22 Albumin [Mass/Vol] 2.7 g/dL Low 3.4 - 5.0 [facility] Comment on above: Performed By: #### C BC #### [facility] [address] [place] [address] Anion gap [Moles/Vol] 10 mmol/L Normal 10 - 20 [facility] Comment on above: Performed By: #### C BC #### [facility] [address] [place] [address] Calcium [Mass/Vol] 7.8 mg/dL Low 8.6 - 10.6 [facility] Comment on above: Performed By: #### C BC #### [facility] [address] [place] [address] Chloride [Moles/Vol] 105 mmol/L Normal 98 - 107 [facility] Comment on above: Performed By: #### C BC #### [facility] [address] [place] [address] Creatinine [Mass/Vol] 0.49 mg/dL Low 0.50 - 1.05 [facility] Comment on above: Performed By: #### C BC #### [facility] [address] [place] [address] eGFR FEMALE >90 Normal >90 [facility] Comment on above: Result Comment: CALC ULATIONS OF ESTIMATED GFR ARE PERFORMED USING THE 2020 CKD-EPI STUDY REFIT EQUATION WITHOUT THE RACE VARIABLE FOR THE IDMS-TRACEABLE CREATININE METHODS. https://jasn.asnjournals.org/content/.082 [id number] Performed By: #### C BC #### [facility] [address] [place] [address] Glucose [Mass/Vol] 93 mg/dL Normal 74 - 99 [facility] Comment on above: Performed By: #### C BC #### [facility] [address] [place] [address] HCO3 (Bld) [Moles/Vol] 29 mmol/L Normal 21 - 32 [facility] Comment on above: Performed By: #### C BC #### [facility] [address] [place] [address] Phosphate [Mass/Vol] 2.4 mg/dL Low 2.5 - 4.9 [facility] Comment on above: Result Comment: The performance characteristics of phosphorus testing in heparinized plasma have been validated by the individual laboratory site where testing is performed. Testing on heparinized plasma is not approved by the FDA; however, such approval is not necessary. Performed By: #### C BC #### [facility] [address] [place] [address] Potassium [Moles/Vol] 4.3 mmol/L Normal 3.5 - 5.3 [facility] Comment on above: Performed By: #### C BC #### [facility] [address] [place] [address] Sodium [Moles/Vol] 140 mmol/L Normal 136 - 145 [facility] Comment on above: Performed By: #### C BC #### [facility] [id number] [place] [address] Urea nitrogen [Mass/Vol] 9 mg/dL Normal 6 - 23 [facility] Comment on above: Performed By: #### C BC #### [facility] [address] [place] [address] Renal Function Panelon 09-22 Albumin BCP dye [...] - 32 MG-Gastro en terology-[facility]well 6 [facility] Work Phone: Creatinine [Mass/Vol] 0.49 mg/dL below low threshold See Below MG-Gastroen terology-[facility]well 6 [facility] Work Phone: Comment on above: Reference Range: 0.5 0 - 1.05 Glucose [Mass/Vol] 93 mg/dL 74 - 99 MG-Gas troen terology-[place]well 6 [facility] Work Phone: Phosphate [Mass/Vol] 2.4 mg/dL below low threshold 2.5 - 4.9 MG-Gastroen terology-[facility]endo [facility]well 6 [facility] Work Phone: Comment on above: The performance arsalan acteristics of phosphorus testing in heparinized plasma have been validated by the individual laboratory site where testing is performed. Testing on heparinized plasma is not approved by the FDA; however, such approval is not necessary. Potassium [Moles/Vol] 4.3 mmol/L 3.5 - 5.3 MG- Gastroen terology-[facility] 6 [facility] Work Phone: Sodium [Moles/Vol] 140 mmol/L 136 - 145 MG-Gas troen terology-[place] 6 [facility] Work Phone: Urea nitrogen [Mass/Vol] 9 mg/dL 6 - 23 MG-Gastroen terology-[place] 6 I Work Phone: Renal Function Panel >90 >90 MG-G astroen terology-[place] [facility] 6 I Work Phone: Comment on above: CALCULATIONS OF IVY MATED GFR ARE PERFORMED USING THE 2020 CKD-EPI STUDY REFIT EQUATION WITHOUT THE RACE VARIABLE FOR THE IDMS-TRACEABLE CREATININE METHODS.https://jasn.asnjournals.org/content/early/ /ASN.4457252359 UA MICROSCOPICon 09-22-2021 RBC 6 /HPF Abnormal 0-5 [facility] Comment on above: Performed By: #### C BC #### [facility] [address] [place] [address] SQUAMOUS EPITH. CELLS 1 /HPF Normal [facility] Comment on above: Performed By: #### C BC #### [facility] [address] [place] [address] WBC 8 /HPF Abnormal 0-5 [facility] Comment on above: Performed By: #### C BC #### [facility] [address] [place] [address] URINALYSIS WITH CULTURE IF I NDICATEDon 09-22-2021 Appearance (U) CLEAR Normal CLEAR [facility] Comment on above: Performed By: #### U ARFX ####[id number] [place] [address] Bilirubin Ql (U) Negative Normal NEGATIVE [facility] Comment on above: Performed By: #### U ARFX ####[id number] [place] [address] Color (U) MIRANDA Normal STRAW,YELL OW [facility] Comment on above: Performed By: #### U ARFX ####[id number] [place] [address] Glucose Ql (U) Negative Normal NEGATIVE [facility] Comment on above: Performed By: #### U ARFX ####[id number] [place] [address] Hemoglobin Ql (U) Negative Normal NEGATIVE [facility] Comment on above: Performed By: #### U ARFX ####[id number] [place] [address] Ketones Ql (U) 20 (1+) Abnormal NEGATIVE [facility] Comment on above: Performed By: #### U ARFX ####[id number] [place] [address] Leukocyte esterase Test strip Ql (U) Negative Normal NEGATIVE [facility] Comment on above: Performed By: #### U ARFX ####[id number] [place] [address] Nitrite Ql (U) Negative Normal NEGATIVE [facility] Comment on above: Performed By: #### U ARFX ####[id number] [place] [address] pH (U) 5.0 [pH] Normal 5.0 - 8.0 [facility] Comment on above: Performed By: #### U ARFX ####[id number] [place] [address] Protein Ql (U) 30 (1+) Abnormal NEGATIVE [facility] Comment on above: Performed By: #### U ARFX ####[id number] [place] [address] Specific gravity (U) [Rel density] 1.040 High 1.005 - 1.035 [facility] Comment on above: Performed By: #### U ARFX ####[id number] [place] [address] Urobilinogen (U) [Mass/Vol] 2.0 mg/dL High 0.0 - 1.9 [facility] Comment on above: Result Comment: Due to [...] positive urobilinogen. Performed By: #### U ARFX ####[id number] [place] [address] Lab Specimen Source Normal [facility] Comment on above: Performed By: #### U ARFX ####[id number] [place] [address] Performed By: #### C BC #### [facility] [address] [place] [address] Color (U) MIRANDA See Below MG-Gastroen terology-Rosendo [...] CULTURE,BACTERIALon URINE CULTURE,BACTERIAL PATIENT: Fay LEE LOCATION: [place] [address] BILL#: [id number] : 71 AGE: SEX: F ORDERED BY: AMBROCIO IZAGUIRRE SOURCE: URINE COLLECTED: 09/22/21 12:59 ANTIBIOTICS AT [facility].: RECEIVED : 09/22/21 14:59 SITE: R E S U L T S URINE CULTURE,BACTERIAL FINAL 09/23/21 09:04 NO SIGNIFICANT GROWTH. Normal [facility] Comment on above: Performed By: #### C BC #### [facility] [address] [place] [address] Urinalysis, Microscopicon Urinalysis, Microscopic 1 {/HPF} M G-Gastroen terology-[place] [facility] 6 [facility] Work Phone: Urinalysis, Microscopic 6 {/HPF} Abnormal 0-5 M G-Gastroen terology-[place] [facility] 6 I Work Phone: Urinalysis, Microscopic 8 {/HPF} Abnormal 0-5 M G-Gastroen terology-[place] 6 I Work Phone: Comment on above: SOURCE: CBCon 09-21-2021 Erythrocyte distribution width (RBC) [Ratio] 13.1 % Normal 11.5 - 14.5 [facility] Comment on above: Performed By: #### R ENAL #### [facility] [address] [place] [address] Hematocrit (Bld) [Volume fraction] 34.5 % Low 36.0 - 46.0 [facility] Comment on above: Performed By: #### R ENAL #### [facility] [address] [place] [address] Hemoglobin (Bld) [Mass/Vol] 11.4 g/dL Low 12.0 - 16.0 [facility] Comment on above: Performed By: #### R ENAL #### [facility] [address] [place] [address] MCHC (RBC) [Mass/Vol] 33.0 g/dL Normal 32.0 - 36.0 [facility] Comment on above: Performed By: #### R ENAL #### [facility] [address] [place] [address] MCV (RBC) [Entitic vol] 91 fL Normal 80 - 100 U [facility] Comment on above: Performed By: #### R ENAL #### [facility] [address] [place] [address] NUCLEATED RBC 0.0 /100 WBC Normal 0.0-0.0 [facility] Comment on above: Performed By: #### R ENAL #### [facility] [address] [place] [address] Platelets (Bld) [#/Vol] 269 10*3/uL Normal 150 - 450 [facility] Comment on above: Performed By: #### R ENAL #### [facility] [address] [place] [address] RBC 3.81 x10E12/L Low 4.00 - 5.20 [facility] Comment on above: Performed By: #### R ENAL #### [facility] [address] [place] [address] WBC (Bld) [#/Vol] 14.6 10*3/uL High 4.4 - 11.3 [facility] Comment on above: Performed By: #### R ENAL #### [facility] [address] [place] [address] Erythrocyte distribution width (RBC) [Ratio] 13.2 % Normal 11.5 - 14.5 [facility] Comment on above: Performed By: #### R ENAL #### [facility] [address] [place] [address] Hematocrit (Bld) [Volume fraction] 35.8 % Low 36.0 - 46.0 [facility] Comment on above: Performed By: #### R ENAL #### [facility] [address] [place] [address] Hemoglobin (Bld) [Mass/Vol] 11.9 g/dL Low 12.0 - 16.0 [facility] Comment on above: Performed By: #### R ENAL #### [facility] [address] [place] [address] MCHC (RBC) [Mass/Vol] 33.2 g/dL Normal 32.0 - 36.0 [facility] Comment on above: Performed By: #### R ENAL #### [facility] [address] [place] [address] MCV (RBC) [Entitic vol] 91 fL Normal 80 - 100 U [facility] Comment on above: Performed By: #### R ENAL #### [facility] [address] [place] [address] NUCLEATED RBC 0.0 /100 WBC Normal 0.0-0.0 [facility] Comment on above: Performed By: #### R ENAL #### [facility] [address] [place] [address] Platelets (Bld) [#/Vol] 215 10*3/uL Normal 150 - 450 [facility] Comment on above: Performed By: #### R ENAL #### [facility] [address] [place] [address] RBC 3.93 x10E12/L Low 4.00 - 5.20 [facility] Comment on above: Performed By: #### R ENAL #### [facility] [address] [place] [address] WBC (Bld) [#/Vol] 14.8 10*3/uL High 4.4 - 11.3 [facility] Comment on above: Performed By: #### R ENAL #### [facility] [address] [place] [address] Daily Progress Note-Nuha jinny 09-21-2021 Daily Progress Note-Neurosurgery Service: Neurosurgery Subjective Data: MORALES LEE is a 46 year old Female who is Hospital Day # 7 and POD #3 for 1. Exploration of spinal fusion;2. Reduction of L4/5 dislocation;2. L5-pelvis instrumented fusion with posterolateral arthrodesis;4. Extension of instrumentation with multiple kwame construct and side connectors. Objective Data: Objective Information: T PRBPSpO2 [id number]/8495% Date/Time09/20 15: 4: 4: 4: 4:00 Range(36.9C [...] ----- Mn/Dy/Year TimeIntakeOutputNet Sep 19, 2021 10:00 [id number] Sep 19, 2021 6:00 [id number] The Intake and Output Totals for the last 24 hours are: IntakeOutputNet [id number] Physical Exam by System: Neurological: A&Ox3 RUE [...] Chronic pain recs- intra-op ketamine, meloxicam post-op, GRADUATE TEACHING ASSOCIATE until good PT eval, Suboxone as OP [...] the following: I personally evaluated the patient [id number] Comments/ Additional Findings The patient has been [...] inborn buckling of the ligamentum flavum from congregation of for significant kyphotic malalignment spine I [...] 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 Normal [facility] Laboratory - Blood bankon ABO group Nom [...] [Interp] Canceled MG-Gastroe n terology-[place] 6 [facility] Work Phone: Comment on above: CALLED EVARISTO AFSANEH PAT REGAN, 09/21/2021 05:08 Laboratory - Hematology and Cell [...] lumbar spine September 18, 2021 ACCESSION NUMBER(S): [id number]; [id number] ORDERING CLINICIAN: DEVANTE STARKS TECHNIQUE: Sagittal axial [...] S1-2. Electronically signed by: DO Andrei MESSER [facility] NR MRI T-SPINE WOon 09-21-19 NR MRI T-SPINE WO Patient Name: MORALES LEE STUDY: MRI T-SPINE WO; MRI L-SPINE WO; 09/20/2021 10:40 pm; 09/20/2021 10:42 pm INDICATION: postop foot weakness, Lie Flat: Yes, Pre Med: No . COMPARISON: MRI December 24, [address] of the lumbar spine September 18, 2021 ACCESSION NUMBER(S): [id number]; [id number] ORDERING CLINICIAN: DEVANTE DEFTA TECHNIQUE: Sagittal axial T2 weighted images of [...] Electronically signed by: NATALIA WALL DO Normal [facility] No Panel Informationon 09-21 0.0 {/100_WBC} 0.0-0.0 [...] Review Immunohematology ZURDO MG-Gastroen terology-[place] 6 [facility] Work Phone: Comment on above: By [...] Preop Checklist Preop Checklist: Preop Checklist: Arrival [id number] Arrival Time11:00 Procedure Typere-exploration of spine Temperature C36.2 degrees C Temperature F97.1 degrees F Heart Rate91 beats per minute Respiratory Rate18 breath per minute Blood Pressure [id number] mm/Hg Blood Pressure Dwnaobtdg61 mm/Hg COVID 19 Results in Last 7 [...] Language / CommunicationEnglish Electronic Signatures: Linh Buchanan (EVARISTO) (Signed 21-Sep-2021 11:17) Authored: Preop Checklist Last Updated: 21-Sep-2021 11:17 by Linh Buchanan (EVARISTO) Normal [facility] REQUEST-LEUKOREDUCED RED ANJU LSon 09-21-2021 REQUEST-LEUKOREDUCED RED CELLS ORDER RECD Normal [facility] Comment on above: Performed By: #### A FPA3 #### [facility] [address] [place] [id number] TYPE + SCREENon 09-21-2021 ABO TYPE O Normal [facility] Comment on above: Performed By: #### A FPA3 #### [facility] [address] [place] [address] RH TYPE Positive Normal [facility] Comment on above: Performed By: #### A FPA3 #### [facility] [address] [place] [address] ABO TYPE Canceled Normal [facility] Comment on above: Order Comment: VENECIA ESPINO, 09/21/2021 05:08TEST TYPE + SCREEN WAS CANCELLED, 09/21/2021 05:06 NO PHLEB ID ON TUBE. Result Comment: CALL ED EVARISTO ESPNIO, 09/21/2021 05:08 Performed By: #### A FPA3 #### [facility] [address] [place] [id number] RH TYPE Canceled Normal [facility] Comment on above: Order Comment: VENECIA ESPINO, 09/21/2021 05:08TEST TYPE + SCREEN WAS CANCELLED, 09/21/2021 05:06 NO PHLEB ID ON TUBE. Result Comment: CALL ED EVARISTO ESPINO, 09/21/2021 05:08 Performed By: #### A FPA3 #### [facility] [address] [place] [address] CBCon 09-20-2021 Erythrocyte distribution width (RBC) [Ratio] 13.2 % Normal 11.5 - 14.5 [facility] Comment on above: Performed By: #### C BC #### [facility] [address] [place] [address] Hematocrit (Bld) [Volume fraction] 30.8 % Low 36.0 - 46.0 [facility] Comment on above: Performed By: #### C BC #### [facility] [address] [place] [address] Hemoglobin (Bld) [Mass/Vol] 9.8 g/dL Low 12.0 - 16.0 [facility] Comment on above: Performed By: #### C BC #### [facility] [address] [place] [address] MCHC (RBC) [Mass/Vol] 31.8 g/dL Low 32.0 - 36.0 [facility] Comment on above: Performed By: #### C BC #### [facility] [address] [place] [address] MCV (RBC) [Entitic vol] 93 fL Normal 80 - [address] [facility] Comment on above: Performed By: #### C BC #### [facility] [address] [place] [address] NUCLEATED RBC 0.0 /100 WBC Normal 0.0-0.0 [facility] Comment on above: Performed By: #### C BC #### [facility] [address] [place] [address] Platelets (Bld) [#/Vol] 224 10*3/uL Normal 150 - 450 [facility] Comment on above: Performed By: #### C BC #### [facility] [address] [place] [address] RBC 3.32 x10E12/L Low 4.00 - 5.20 [facility] Comment on above: Performed By: #### C BC #### [facility] [address] [place] [address] WBC (Bld) [#/Vol] 12.1 10*3/uL High 4.4 - 11.3 [facility] Comment on above: Performed By: #### C BC #### [facility] [address] [place] [address] Daily Progress Note-Nuha stearns 09-20-2021 Daily Progress Note-Neurosurgery Service: Neurosurgery Subjective Data: MORALES LEE is a 46 year old Female who is Hospital Day # 6 and POD #2 for 1. Exploration of spinal fusion;2. Reduction of L4/5 dislocation;2. L5-pelvis instrumented fusion with posterolateral arthrodesis;4. Extension of instrumentation with multiple kwame construct and side connectors. Objective Data: Objective Information: T PRBPSpO2 [id number]/5095% Date/Time09/19 16: 1: 16:001/16 1:341/16 1:34 Range(36.7C - 36.7C ) (84 - 110 ) (18 - 18 ) (82 - 118 )/ (50 - 97 ) (94% - 97% ) As of 19-Sep-2021 08:00:00, patient is on 2 L/min of oxygen via nasal cannula. ---- Intake and Output ----- Mn/Dy/[facility] Sep 18, 2021 10:00 [id number] The Intake and Output Totals for the [...] chronic pain recs- intra-op ketamine, meloxicam post-op, GRADUATE TEACHING ASSOCIATE until good PT eval, Suboxone as OP [...] Updated: 21-Sep-2021 11:28 by Perez Carlisle) Normal [facility] Laboratory - Hematology and Cell countson 09-20-2021 Erythrocyte distribution width (RBC) [Ratio] 13.2 % See Below MG-Gastroen terology-[place] [facility]well 6 [facility] Work Phone: Comment on above: Reference Range: 11. 5 - 14.5 Hematocrit (Bld) [Volume fraction] 30.8 % below low threshold See Below MG-Gastroen terology-[place] [facility] 6 [facility] Work Phone: Comment on above: Reference Range: 36. 0 - 46.0 Hemoglobin (Bld) [Mass/Vol] 9.8 g/dL below low threshold See Below MG-Gastroen terology-[place] lwell 6 [facility] Work Phone: Comment on above: Reference Range: 12. 0 - 16.0 MCHC (RBC) [Mass/Vol] 31.8 g/dL below low threshold See Below MG-Gastroen terology-[place] l[facility] 6 I Work Phone: Comment on above: Reference Range: 32. 0 - 36.0 MCV (RBC) [Entitic vol] 93 fL 80 - 100 M G-Gastroen terology-Rosendo gretaell 6 I Work Phone: Platelets (Bld) [#/Vol] [...] 20-Sep-2021 12:25 by Carole Carlos (OT) Normal [facility] PT Evaluation v2-attemptedon 09-20-2021 PT Evaluation v2-attempted Rehab: Info: Mode of Treatmentattempted Time IN12:00 Evaluation Not PerformedPer RN pt not appropriate for therapy, pt continues to have low BP and plan to receive blood, will hold and reattempt as appropriate Electronic Signatures: Kaykay Yoo (PT) (Signed 20-Sep-2021 12:42) Authored: Info Last Updated: 20-Sep-2021 12:42 by Kaykay Yoo (PT) Normal [facility] REQUEST-LEUKOREDUCED RED ANJU LSon 09-20-2021 REQUEST-LEUKOREDUCED RED CELLS ORDER RECD Normal [facility] Comment on above: Performed By: #### R ENAL #### [facility] [address] [place] [address] CBCon 09-19-2021 Erythrocyte distribution width (RBC) [Ratio] 12.4 % Normal 11.5 - 14.5 [facility] Comment on above: Performed By: #### R ENAL #### [facility] [address] [place] [address] Hematocrit (Bld) [Volume fraction] 38.3 % Normal 36.0 - 46.0 [facility] Comment on above: Performed By: #### R ENAL #### [facility] [address] [place] [address] Hemoglobin (Bld) [Mass/Vol] 13.4 g/dL Normal 12.0 - 16.0 [facility] Comment on above: Performed By: #### R ENAL #### [facility] [address] [place] [address] MCHC (RBC) [Mass/Vol] 35.0 g/dL Normal 32.0 - 36.0 [facility] Comment on above: Performed By: #### R ENAL #### [facility] [address] [place] [address] MCV (RBC) [Entitic vol] 85 fL Normal 80 - [address] [facility] Comment on above: Performed By: #### R ENAL #### [facility] [address] [place] [address] NUCLEATED RBC 0.0 /100 WBC Normal 0.0-0.0 [facility] Comment on above: Performed By: #### R ENAL #### [facility] [address] [place] [address] Platelets (Bld) [#/Vol] 326 10*3/uL Normal 150 - 450 [facility] Comment on above: Performed By: #### R ENAL #### [facility] [address] [place] [address] RBC 4.51 x10E12/L Normal 4.00 - 5.20 [facility] Comment on above: Performed By: #### R ENAL #### [place] [address] [place] [address] WBC (Bld) [#/Vol] 20.5 10*3/uL High 4.4 - 11.3 [facility] Comment on above: Performed By: #### R ENAL #### [facility] [address] [place] [address] CBC AND DIFFERENTIALon 09-19 % AUTOMATED IMMATURE GRAN 0.6 % Normal 0.0 - 0.9 [facility] Comment on above: Result Comment: Jaleesa ture Granulocyte Count (IG) includes promyelocytes, myelocytes and metamyelocytes but does not include bands. Percent differential counts (%) should be interpreted in the context of the absolute cell counts (cells/L). Performed By: #### V FPA3 #### [facility] [address] [place] [address] Basophils (Bld) [#/Vol] 0.03 10*3/uL Normal 0.00 - 0.10 [facility] Comment on above: Performed By: #### V FPA3 #### [facility] [address] [place] [address] Basophils/100 WBC (Bld) 0.1 % Normal 0.0 - 2.[address] [facility] Comment on above: Performed By: #### V FPA3 #### [facility] [address] [place] [address] Eosinophils (Bld) [#/Vol] 0.01 10*3/uL Normal 0.00 - 0.70 [facility] Comment on above: Performed By: #### V FPA3 #### [facility] [address] [place] [address] Eosinophils/100 WBC (Bld) 0.0 % Normal 0.0 - 6.0 [facility] Comment on above: Performed By: #### V FPA3 #### [facility] [address] [place] [address] Erythrocyte distribution width (RBC) [Ratio] 12.9 % Normal 11.5 - 14.5 [facility] Comment on above: Performed By: #### V FPA3 #### [facility] [address] [place] [address] Hematocrit (Bld) [Volume fraction] 38.3 % Normal 36.0 - 46.0 [facility] Comment on above: Performed By: #### V FPA3 #### [facility] [address] [place] [address] Hemoglobin (Bld) [Mass/Vol] 12.7 g/dL Normal 12.0 - 16.0 [facility] Comment on above: Performed By: #### V FPA3 #### [facility] [address] [place] [address] Lymphocytes (Bld) [#/Vol] 2.89 10*3/uL Normal 1.20 - 4.80 [facility] Comment on above: Performed By: #### V FPA3 #### [facility] [address] [place] [address] Lymphocytes/100 WBC (Bld) 13.5 % Normal 13.0 - 44.0 [facility] Comment on above: Performed By: #### V FPA3 #### [facility] [address] [place] [address] MCHC (RBC) [Mass/Vol] 33.2 g/dL Normal 32.0 - 36.0 [facility] Comment on above: Performed By: #### V FPA3 #### [facility] [address] [place] [address] MCV (RBC) [Entitic vol] 89 fL Normal 80 - 100 [facility] Comment on above: Performed By: #### V FPA3 #### [facility] [address] [place] [address] Monocytes (Bld) [#/Vol] 1.23 10*3/uL High 0.10 - 1.00 [facility] Comment on above: Performed By: #### V FPA3 #### [facility] [address] [place] [address] Monocytes/100 WBC (Bld) 5.7 % Normal 2.0 - 10.0 [facility] Comment on above: Performed By: #### V FPA3 #### [facility] [address] [place] [address] Neutrophils (Bld) [#/Vol] 17.16 10*3/uL High 1.20 - 7.70 [facility] Comment on above: Performed By: #### V FPA3 #### [facility] [address] [place] [address] Neutrophils/100 WBC (Bld) 80.1 % Normal 40.0 - 80.0 [facility] Comment on above: Performed By: #### V FPA3 #### [facility] [address] [place] [address] NUCLEATED RBC 0.0 /100 WBC Normal 0.0-0.0 [facility] Comment on above: Performed By: #### V FPA3 #### [facility] [address] [place] [address] Platelets (Bld) [#/Vol] 401 10*3/uL Normal 150 - 450 [facility] Comment on above: Performed By: #### V FPA3 #### [facility] [address] [place] [address] RBC 4.28 x10E12/L Normal 4.00 - 5.20 [facility] Comment on above: Performed By: #### V FPA3 #### [facility] [address] [address] WBC (Bld) [#/Vol] 21.5 10*3/uL High 4.4 - 11.3 [facility] Comment on above: Performed By: #### V FPA3 #### [facility] [address] [address] COAGULATION SCREENon aPTT Coag (Bld) [Time] 29 s Normal 26 - 39 [facility] Comment on above: Result Comment: Note new reference range as of 08/04/2021 at 10:00am. Performed By: #### R ENAL #### [facility] [address] [place] [address] PT Coag (PPP) [Time] 11.5 s Normal 9.8 - 13.4 [facility] Comment on above: Result Comment: Note new reference range as of 08/04/2021 at 10:00am. Performed By: #### R ENAL #### [facility] [address] [place] [address] PT, INR 1.0 Normal 0.9 - 1.1 [facility] Comment on above: Performed By: #### R ENAL #### [facility] [address] [place] [address] Complete Blood Count + Diffe rentialon 09-19-2021 Basophils/100 WBC (Bld) 0.1 % 0.0 - 2.0 M G-Gastroen terology-[facility] 6 [facility] Work Phone: Erythrocyte distribution width (RBC) [Ratio] 12.9 % See Below MG-Gastroen terology-[facility] lwell 6 I Work Phone: Comment on above: Reference Range: 11. 5 - 14.5 Hematocrit (Bld) [Volume fraction] 38.3 % See Below MG-Gastroen terology-[facility] lwell 6 [facility] Work Phone: Comment on above: Reference [...] terology-[facility] 6 [facility] Work Phone: Comment on above: Immature Granulocyte Count (IG) includes promyelocytes, myelocytes and metamyelocytes but does not include bands. Percent differential counts (%) should be interpreted in the context of the absolute cell counts (cells/L). Complete Blood Count + Differential 0.0 {/100_WBC} 0.0-0.0 MG-Gastroen terology-[facility] 6 [facility] Work Phone: Complete Blood Count + Differential 0.03 {x10E9/L} See Below MG-Gastroen terology-Rosendo ell 6 [facility] Work Phone: Comment on above: Reference Range: 0.0 0 - 0.10 Complete Blood Count + Differential 0.01 {x10E9/L} See Below MG-Gastroen terology-Rosendo [facility] 6 [facility] Work Phone: Comment on above: Reference Range: 0.0 0 - 0.70 Complete Blood Count + Differential 1.23 {x10E9/L} above high threshold See Below MG-Gastroen terology-Ros[facility] 6 [facility] Work Phone: Comment on above: Reference Range: 0.1 0 - 1.00 Complete Blood Count + Differential 2.89 {x10E9/L} See Below MG-Gastroen terology-Rosendo [facility] 6 [facility] Work Phone: Comment on above: Reference Range: 1.2 0 - 4.80 Complete Blood Count + Differential 17.16 {x10E9/L} above high threshold See Below MG-Gastroen terology-Rosendo [facility] 6 [facility] Work Phone: Comment on above: Reference [...] connectors. Objective Data: Objective Information: T PRBPSpO2 [id number]/8596% Date/Time09/18 17: 17: 17: 17: 17:40 Range(36.4C [...] ----- Mn/Dy/Year TimeIntakeOutputNet Sep 17, 2021 10:00 [id number] The Intake and Output Totals for the last 24 hours are: IntakeOutputNet [id number] Physical Exam by System: Neurological: A&Ox3 RUE D5, B5, T5, HG5, IO5 LUE D4+, B4+, T4+, HG4+, IO5 RLE HF 4+, KE4+, PF5, DF5 (pain limited) LLE HF 4-, KE4-, PF4, DF5 Recent Lab Results: Results: Recent Arterial Blood Gas Results 09/18/2021 11:48 [id number] 24 h range: ( 219 - 224 ) pH7.44 24 h range: ( 7.44 - 7.45 ) fLP096 24 h range: ( 37 - 40 ) IU5533 24 h range: ( 100 - 100 ) Base Excess2.8 24 h range: ( 1.8 - 2.8 ) Drkvlvhlsqy18.2 24 h range: ( 25.7 - 27.2 [...] the note. I personally evaluated the patient [id number] Comments/ Additional Findings Patients postoperative CT scan [...] Assessment an (more content not included)... Normal [facility] Laboratory - Coagulationon 0 09-19-2021 aPTT Coag [...] [Mass/Vol] 1.59 mg/dL Low 1.60 - 2.40 [facility] Comment on above: Performed By: #### R ENAL #### [facility] [address] [place] [address] PT Evaluation v2-attemptedon 09-19-2021 PT Evaluation v2-attempted Rehab: Info: Mode of Treatmentattempted Time IN11:37 Time OUT11:50 Total Treatment Lkxriwi42 Evaluation Not PerformedHistory obtained, BP assessed in supine 79/54mmHg, RN notified and redone with 71/51mmHg, will hold PT eval at this time and reattempt as medically appropriate Electronic Signatures: Kaykay Yoo (PT) (Signed 19-Sep-2021 12:14) Authored: Info Last Updated: 19-Sep-2021 12:14 by Kaykay Yoo (PT) Normal [facility] RENAL FUNCTION PANELon 09-19 Albumin [Mass/Vol] 3.4 g/dL Normal 3.4 - 5.0 [facility] Comment on above: Performed By: #### A FPA3 #### [facility] [address] [place] [address] Anion gap [Moles/Vol] 18 mmol/L Normal 10 - 20 [facility] Comment on above: Performed By: #### A FPA3 #### [facility] [address] [place] [address] Calcium [Mass/Vol] 8.3 mg/dL Low 8.6 - 10.6 [facility] Comment on above: Performed By: #### A FPA3 #### [facility] [address] [place] [address] Chloride [Moles/Vol] 100 mmol/L Normal 98 - 107 [facility] Comment on above: Performed By: #### A FPA3 #### [facility] [address] [place] [address] Creatinine [Mass/Vol] 0.60 mg/dL Normal 0.50 - 1.05 [facility] Comment on above: Performed By: #### A FPA3 #### [facility] [address] [place] [address] eGFR FEMALE >90 Normal >90 [facility] Comment on above: Result Comment: CALC ULATIONS OF ESTIMATED GFR ARE PERFORMED USING THE 2020 CKD-EPI STUDY REFIT EQUATION WITHOUT THE RACE VARIABLE FOR THE IDMS-TRACEABLE CREATININE METHODS. https://jasn.asnjournals.org/content/early/ASN.315 3022515 Performed By: #### A FPA3 #### [facility] [address] [place] [address] Glucose [Mass/Vol] 82 mg/dL Normal 74 - 99 [facility] Comment on above: Performed By: #### A FPA3 #### [facility] [address] [place] [address] HCO3 (Bld) [Moles/Vol] 26 mmol/L Normal 21 - 32 [facility] Comment on above: Performed By: #### A FPA3 #### [facility] [address] [place] [address] Phosphate [Mass/Vol] 2.8 mg/dL Normal 2.5 - 4.9 [facility] Comment on above: Result Comment: The performance characteristics of phosphorus testing in heparinized plasma have been validated by the individual laboratory site where testing is performed. Testing on heparinized plasma is not approved by the FDA; however, such approval is not necessary. Performed By: #### A FPA3 #### [facility] [address] [place] [address] Potassium [Moles/Vol] 4.5 mmol/L Normal 3.5 - 5.3 [facility] Comment on above: Performed By: #### A FPA3 #### [facility] [address] [place] [address] Sodium [Moles/Vol] 139 mmol/L Normal 136 - 145 [facility] Comment on above: Performed By: #### A FPA3 #### [facility] [address] [place] [address] Urea nitrogen [Mass/Vol] 9 mg/dL Normal 6 - 23 [facility] Comment on above: Performed By: #### A FPA3 #### [facility] [address] [place] [address] Albumin [Mass/Vol] 3.6 g/dL Normal 3.4 - 5.0 [facility] Comment on above: Performed By: #### R ENAL #### [facility] [address] [place] [address] Anion gap [Moles/Vol] 13 mmol/L Normal 10 - 20 [facility] Comment on above: Performed By: #### R ENAL #### [facility] [address] [place] [address] Calcium [Mass/Vol] 8.9 mg/dL Normal 8.6 - 10.6 [facility] Comment on above: Performed By: #### R ENAL #### [facility] [address] [place] [address] Chloride [Moles/Vol] 100 mmol/L Normal 98 - 107 [facility] Comment on above: Performed By: #### R ENAL #### [facility] [address] [place] [address] Creatinine [Mass/Vol] 0.51 mg/dL Normal 0.50 - 1.05 [facility] Comment on above: Performed By: #### R ENAL #### [facility] [address] [place] [address] eGFR FEMALE >90 Normal >90 [facility] Comment on above: Result Comment: CALC ULATIONS OF ESTIMATED GFR ARE PERFORMED USING THE 2020 CKD-EPI STUDY REFIT EQUATION WITHOUT THE RACE VARIABLE FOR THE IDMS-TRACEABLE CREATININE METHODS. https://jasn.asnjournals.org/content/early//ASN.304 4867068 Performed By: #### R ENAL #### [facility] [address] [place] [address] Glucose [Mass/Vol] 123 mg/dL High 74 - 99 [facility] Comment on above: Performed By: #### R ENAL #### [facility] [address] [place] [address] HCO3 (Bld) [Moles/Vol] 28 mmol/L Normal 21 - 32 [facility] Comment on above: Performed By: #### R ENAL #### [facility] [address] [place] [address] Phosphate [Mass/Vol] 2.8 mg/dL Normal 2.5 - 4.9 [facility] Comment on above: Result Comment: The performance characteristics of phosphorus testing in heparinized plasma have been validated by the individual laboratory site where testing is performed. Testing on heparinized plasma is not approved by the FDA; however, such approval is not necessary. Performed By: #### R ENAL #### [facility] [address] [place] [address] Potassium [Moles/Vol] 4.3 mmol/L Normal 3.5 - 5.3 [facility] Comment on above: Performed By: #### R ENAL #### [facility] [address] [place] [address] Sodium [Moles/Vol] 137 mmol/L Normal 136 - 145 [facility] Comment on above: Performed By: #### R ENAL #### [facility] [address] [place] [address] Urea nitrogen [Mass/Vol] 8 mg/dL Normal 6 - 23 [facility] Comment on above: Performed By: #### R ENAL #### [facility] [address] [place] [address] Renal Function Panelon 09-19 Albumin BCP dye [...] - 4.9 [facility]-G astroen terology-[facility] lwell 6 [facility] Work Phone: Comment on above: The [...] 6 - 23 [facility]-Gastroen terology-[facility] lwell 6 [facility] Work Phone: Renal Function Panel >90 >90 MG-G astroen terology-Rosendo lwell 6 [facility] Work Phone: Comment on above: CALCULATIONS OF IVY MATED GFR ARE PERFORMED USING THE 2020 CKD-EPI STUDY REFIT EQUATION WITHOUT THE RACE VARIABLE FOR THE IDMS-TRACEABLE CREATININE METHODS.https://jasn.asnjournals.org/content/early /ASN.6575054877 ANTIBODY IDENT.on 09-18-2021 ANTIBODY IDENT. Anti-E Normal [facility] Comment on above: Performed By: #### A FPA3 #### [facility] [address] [place] [address] ARTERIAL FULL PANELon 2021 Anion gap [Moles/Vol] 5 mmol/L Low 10 - 25 [facility] Comment on above: Performed By: #### A FPA3 ####[id number] [place] [address] BASE EXCESS-BLOOD 2.8 mmol/L Normal -2.0 - 3.0 [facility] Comment on above: Performed By: #### A FPA3 ####[id number] [place] [address] BICARB, CALCULATED 27.2 mmol/L High 22.0 - 26.0 [facility] Comment on above: Performed By: #### A FPA3 ####[id number] [place] [address] CALCIUM,IONIZED 1.20 mmol/L Normal 1.10 - 1.33 [facility] Comment on above: Performed By: #### A FPA3 ####[id number] [place] [address] Chloride [Moles/Vol] 106 mmol/L Normal 98 - 107 [facility] Comment on above: Performed By: #### A FPA3 ####[id number] [place] [address] Glucose [Mass/Vol] 149 mg/dL High 74 - 99 [facility] Comment on above: Performed By: #### A FPA3 ####[id number] [place] [address] Hematocrit (Bld) [Volume fraction] 38.0 % Normal 36.0 - 46.0 [facility] Comment on above: Performed By: #### A FPA3 ####[id number] [place] [address] HGB,CALCULATED 12.9 g/dL Normal 12.0 - 16.0 [facility] Comment on above: Performed By: #### A FPA3 ####[id number] [place] [address] Lactate [Moles/Vol] 0.9 mmol/L Normal 0.4 - 2.0 [facility] Comment on above: Performed By: #### A FPA3 ####[id number] [place] [address] Oxygen (Bld) [Partial pressure] 219 mm[Hg] High 85 - 95 [facility] Comment on above: Performed By: #### A FPA3 ####[id number] [place] [address] PATIENT TEMPERATURE 37.0 degrees C Normal U [facility] Comment on above: Result Comment: NOTE : PATIENT RESULTS ARE NOT CORRECTED FOR TEMPERATURE. Performed By: #### A FPA3 ####[id number] [place] [address] PCO2 40 mmHg Normal 38 - 42 [facility] Comment on above: Performed By: #### A FPA3 ####[id number] [place] [address] pH (Bld) 7.44 [pH] High 7.38 - 7.42 [facility] Comment on above: Performed By: #### A FPA3 ####[id number] [place] [address] Potassium [Moles/Vol] 4.4 mmol/L Normal 3.5 - 5.3 [facility] Comment on above: Performed By: #### A FPA3 ####[id number] [place] [address] SO2 100 % Normal 94 - 100 [facility] Comment on above: Performed By: #### A FPA3 ####[id number] [place] [address] Sodium [Moles/Vol] 134 mmol/L Low 136 - 145 [facility] Comment on above: Performed By: #### A FPA3 ####[id number] [place] [address] Anion gap [Moles/Vol] 7 mmol/L Low 10 - 25 [facility] Comment on above: Performed By: #### A FPA3 #### [facility] [address] [place] [address] BASE EXCESS-BLOOD 1.8 mmol/L Normal -2.0 - 3.0 [facility] Comment on above: Performed By: #### A FPA3 #### [facility] [address] [place] [address] BICARB, CALCULATED 25.7 mmol/L Normal 22.0 - 26.0 [facility] Comment on above: Performed By: #### A FPA3 #### [facility] [address] [place] [address] CALCIUM,IONIZED 1.20 mmol/L Normal 1.10 - 1.33 [facility] Comment on above: Performed By: #### A FPA3 #### [facility] [address] [place] [address] Chloride [Moles/Vol] 105 mmol/L Normal 98 - 107 [facility] Comment on above: Performed By: #### A FPA3 #### [facility] [address] [place] [address] Glucose [Mass/Vol] 174 mg/dL High 74 - 99 [facility] Comment on above: Performed By: #### A FPA3 #### [facility] [address] [place] [address] Hematocrit (Bld) [Volume fraction] 37.0 % Normal 36.0 - 46.0 [facility] Comment on above: Performed By: #### A FPA3 #### [facility] [address] [place] [address] HGB,CALCULATED 12.6 g/dL Normal 12.0 - 16.0 [facility] Comment on above: Performed By: #### A FPA3 #### [facility] [address] [place] [address] Lactate [Moles/Vol] 1.1 mmol/L Normal 0.4 - 2.0 [facility] Comment on above: Performed By: #### A FPA3 #### [facility] [address] [place] [address] Oxygen (Bld) [Partial pressure] 224 mm[Hg] High 85 - 95 [facility] Comment on above: Performed By: #### A FPA3 #### [facility] [address] [place] [address] PATIENT TEMPERATURE 37.0 degrees C Normal U [facility] Comment on above: Result Comment: NOTE : PATIENT RESULTS ARE NOT CORRECTED FOR TEMPERATURE. Performed By: #### A FPA3 #### [facility] [address] [place] [address] PCO2 37 mmHg Low 38 - 42 [facility] Comment on above: Performed By: #### A FPA3 #### [facility] [address] [place] [address] pH (Bld) 7.45 [pH] High 7.38 - 7.42 [facility] Comment on above: Performed By: #### A FPA3 #### [facility] [address] [place] [address] Potassium [Moles/Vol] 3.9 mmol/L Normal 3.5 - 5.3 [facility] Comment on above: Performed By: #### A FPA3 #### [facility] [address] [place] [address] SO2 100 % Normal 94 - 100 [facility] Comment on above: Performed By: #### A FPA3 #### [facility] [address] [place] [address] Sodium [Moles/Vol] 134 mmol/L Low 136 - 145 [facility] Comment on above: Performed By: #### A FPA3 #### [place] [address] [place] [address] CT L Spine without Contrasto n 09-18-2021 CT Lumbar spine limited WO contrast Normal [facility]-Gastroen terology-[facility] 6 [facility] Work Phone: Daily Progress Note-Anesthes iologyon [...] connectors. Objective Data: Objective Information: T PRBPSpO2 [id number]/4391% Date/Time09/18 6:041 5: 5: 5: 5:56 Range(37C [...] Recent Arterial Blood Gas Results 09/18/2021 11:48 [id number] 24 h range: ( 219 - 224 ) pH7.44 24 h range: ( 7.44 - 7.45 ) kJJ766 24 h range: ( 37 - 40 ) TA1794 24 h range: ( 100 - 100 ) Base Excess2.8 24 h range: ( 1.8 - 2.8 ) Ocdkykzomec41.2 24 h range: ( 25.7 - 27.2 ) Assessment and Plan: Code Status: Code StatusFull Code Electronic Signatures: Bryan Mora) (Signed 18-Sep-2021 14:47) Authored: Service, Subjective Data, Objective Data, Assessment and Plan, Note Completion Last Updated: 18-Sep-2021 14:47 by Bryan Mora) [facility] Daily Progress Note-Neurosjudy jinny 09-18-2021 Daily Progress Note-Neurosurgery Service: Neurosurgery Subjective Data: MORALES LEE is a 46 year old Female who is Hospital Day # 4. Objective Data: Objective Information: T PRBPSpO2 [id number]/4391% Date/Time09/18 6:041/ 5:561 5:561/ 5:561/ 5:56 Range(36.6C - 37C ) (71 - [...] ----- Mn/Dy/Year TimeIntakeOutputNet Sep 17, 2021 10:00 [id number] Sep 17, 2021 2:00 [id number] The Intake and Output Totals for the [...] the note. I personally evaluated the patient [id number] Electronic Signatures: Fidel Maciel (Resident)) (Signed 18-Sep-2021 06:55) Authored: Service, Subjective Data, Objective Data, Assessment and Plan, Note Completion Lex Frederick) (Signed 19-Sep-2021 10:18) Authored: Note Completion Co-Signer: Service, Subjective Data, Objective Data, Assessment and Plan, Note Completion Last Updated: 19-Sep-2021 10:18 by Lex Frederick) Normal [facility] Laboratory - Chemistry and C hemistry - [...] stroen terology-[facility] l[facility] 6 [facility] Work Phone: Oxygen (Bld) [Partial pressure] 219 mm[Hg] above high threshold 85 - 95 [facility]astroen [facility]ology-[facility] 6 [facility] Work Phone: pH (Bld) 7.44 [pH] above [...] low threshold 136 - 145 MG-Gastroen terology-Rosendo gretaell 6 [facility] Work Phone: Laboratory - Hematology and [...] g/dL See Below MG-Gastroen terology-[facility]endo lwell 6 [facility] Work Phone: Comment on above: Reference Range: 12. 0 - 16.0 MCHC (RBC) [Mass/Vol] 35.0 g/dL See Below MG- Gastroen terology-[facility] 6 I Work Phone: Comment on above: Reference Range: 32. 0 - 36.0 MCV (RBC) [Entitic vol] 85 fL 80 - 100 M G-Gastroen terology-[facility]endo lwell 6 [facility] Work Phone: Platelets (Bld) [#/Vol] 326 10*3/uL 150 - 450 MG-Gastroen terology-[facility] 6 I Work Phone: RBC (Bld) [#/Vol] 4.51 {x10E12/L} See Below MG -Gastroen terology-[facility]endo lwell 6 I Work Phone: Comment on above: Reference Range: 4.0 0 - 5.20 WBC (Bld) [#/Vol] 20.5 10*3/uL above high threshold 4.4 - 11.3 MG-Gastroen terology-Roesndo lwell 6 I Work Phone: Hematocrit (Bld) [...] below low threshold See Below MG-Gastroen terology-Rosendo zeny 6 I Work Phone: Comment on above: Reference Range: 1.6 0 - 2.[address] L-SPINE WO CONTRASTon 09-18-[address] L-SPINE WO CONTRAST Patient Name: MORALES LEE STUDY: CT L-SPINE WO CONTRAST 09/18/2021 7:32 pm INDICATION: difficulty dorsiflex bilaterally, Lie Flat: Yes COMPARISON: CT of the lumbar spine dated 10/07/2020. MRI dated 12/11/2020 ACCESSION NUMBER(S): [id number] ORDERING CLINICIAN: ANGELO JUAREZ TECHNIQUE: Thin cut [...] / study and the interpretation of Dr. Greyson Bey MD. I agree with the findings as stated. This study was interpreted at [facility], [place], [place]. Electronically signed by: BOONE LAO MD Normal [facility] No Panel Informationon 09-18 0.0 {/100_WBC} 0.0-0.0 [...] Respiratory Rate15 breath per minute Blood Pressure Wjozlazy02 mm/Hg Blood Pressure Yxzyefqld31 mm/Hg COVID 19 Results in Last 7 [...] 18-Sep-2021 06:59 by Lian Zuleta (SANAZ) Normal [facility] Radiologyon 09-18-2021 XR Chest Single view Normal [...] troen terology-[facility] 6 I Work Phone: [phone] Chloride [Moles/Vol] 100 mmol/L 98 - 107 MG-G astroen terology-[facility] 6 I Work Phone: [phone] CO2 [Moles/Vol] 28 mmol/L 21 - 32 MG-Gastro en terology-[facility] l[facility] 6 I Work Phone: [phone] Creatinine [Mass/Vol] 0.51 mg/dL See Below MG- Gastroen terology-[facility] lwell 6 [facility] Work Phone: [phone] Comment on above: Reference Range: 0.5 0 - 1.05 Glucose [Mass/Vol] 123 mg/dL above high threshold 74 - 99 [facility]-Gastroen terology-[facility] 6 I Work Phone: [phone] Phosphate [Mass/Vol] 2.8 mg/dL 2.5 - 4.9 MG-G astroen terology-[facility] 6 I Work Phone: [phone] Comment on above: The performance arsalan acteristics [...] RACE VARIABLE FOR THE IDMS-TRACEABLE CREATININE METHODS.https://jasn.asnjournals.org/content/early /ASN.7690551102 TH CHEST; 1 VIEWon 2 TH CHEST; 1 VIEW Patient Name: MORALES LEE STUDY: CHEST; 1 VIEW; 09/18/2021 2:38 pm INDICATION: s/p central line placement (right IJ double lumen) . COMPARISON: Radiograph dated 09/15/2021 ACCESSION NUMBER(S): [id number] ORDERING CLINICIAN: BRYAN MORA FINDINGS: Right IJ [...] Electronically signed by: LORELEI JOHNSTON MD Normal [facility] VENOUS FULL PANELon 09-18-19 22 Anion gap [Moles/Vol] 6 mmol/L Low 10 - 25 [facility] Comment on above: Performed By: #### V FPA3 #### [facility] [address] [place] [address] BASE EXCESS-BLOOD 3.9 mmol/L High -2.0 - 3.0 [facility] Comment on above: Performed By: #### V FPA3 #### [facility] [address] [place] [address] BICARB, CALCULATED 28.5 mmol/L High 22.0 - 26.0 [facility] Comment on above: Performed By: #### V FPA3 #### [facility] [address] [place] [address] CALCIUM,IONIZED 1.17 mmol/L Normal 1.10 - 1.33 [facility] Comment on above: Performed By: #### V FPA3 #### [facility] [address] [place] [address] Chloride [Moles/Vol] 103 mmol/L Normal 98 - 107 [facility] Comment on above: Performed By: #### V FPA3 #### [facility] [address] [place] [address] Glucose [Mass/Vol] 188 mg/dL High 74 - 99 [facility] Comment on above: Performed By: #### V FPA3 #### [facility] [address] [place] [address] Hematocrit (Bld) [Volume fraction] 39.0 % Normal 36.0 - 46.0 [facility] Comment on above: Performed By: #### V FPA3 #### [facility] [address] [place] [address] HGB,CALCULATED 13.3 g/dL Normal 12.0 - 16.0 [facility] Comment on above: Performed By: #### V FPA3 #### [facility] [address] [place] [address] Lactate [Moles/Vol] 1.2 mmol/L Normal 0.4 - 2.0 [facility] Comment on above: Performed By: #### V FPA3 #### [facility] [address] [place] [address] Oxygen (Bld) [Partial pressure] 56 mm[Hg] High 35 - 45 [facility] Comment on above: Performed By: #### V FPA3 #### [facility] [address] [place] [address] PATIENT TEMPERATURE 37.0 degrees C Normal [facility] Comment on above: Result Comment: NOTE : PATIENT RESULTS ARE NOT CORRECTED FOR TEMPERATURE. Performed By: #### V FPA3 #### [facility] [address] [place] [address] PCO2 42 mmHg Normal 41 - 51 [facility] Comment on above: Performed By: #### V FPA3 #### [facility] [address] [place] [address] pH (Bld) 7.44 [pH] High 7.33 - 7.43 [facility] Comment on above: Performed By: #### V FPA3 #### [facility] [address] [place] [address] Potassium [Moles/Vol] 4.1 mmol/L Normal 3.5 - 5.3 [facility] Comment on above: Performed By: #### V FPA3 #### [facility] [address] [place] [address] SO2 91 % High 45 - 75 [facility] Comment on above: Performed By: #### V FPA3 #### [facility] [address] [place] [id number] Sodium [Moles/Vol] 133 mmol/L Low 136 - 145 [facility] Comment on above: Performed By: #### V FPA3 #### [place] [address] [place] [id number] CORONAVIRUS 2019, SCREEN ASY MPTOMATICon 09-17-2021 SARS-CoV-2 (COVID-19) RNA ADRIÁN+probe Ql (Unsp spec) Not detected Normal Not Detected [facility] Comment on above: Result Comment: . This test has received FDA Emergency Use Authorization (EUA) and has been verified by [facility] ([facility]). This test is only authorized for the duration of time that circumstances exist to justify the authorization of the emergency use of in vitro diagnostic tests for the detection of SARS-CoV-2 virus and/or diagnosis of COVID-19 infection under section 564(b)(1) of the Act, 21 U.S.C. 360bbb-3(b)(1), unless the authorization is terminated or revoked sooner. [facility] is certified under CLIA-88 as qualified to perform high complexity testing. Testing is performed in the [facility] located at [address] [place] [address]. SARS-CoV-2/Flu/RSV Multiplex Test: Fact sheet for providers: https://www.fda.gov/media/557739/download Fact sheet for patients: https://www.fda.gov/media/856461/download Performed By: #### C OVSC ####[id number] [place] [address] Lab Specimen Source Nasal, Nasopharyngeal Normal [facility] Comment on above: Performed By: #### C OVSC ####[id number] [place] [address] Coronavirus 2019 RNA by PCR, Screening Asymptomticon 09-17-2021 Coronavirus 2019 RNA by PCR, Screening Asymptomtic Not detected Normal See Below MG-Gastroen terology-Rosendo lwell 6 I Work Phone: Comment on above: SOURCE: Nasal, Nasop haryngealReference Range: Not Detected.This test has received FDA Emergency Use Authorization (EUA) and has been verified by [facility] ([facility]). This test is only authorized for the duration of time that circumstances exist to justify the authorization of the emergency use of in vitro diagnostic tests for the detection of SARS-CoV-2 virus and/or diagnosis of COVID-19 infection under section 564(b)(1) of the Act, 21 U.S.C. 360bbb-3(b)(1), unless the authorization is terminated or revoked sooner. [facility] is certified under CLIA-88 as qualified to perform high complexity testing. Testing is performed in the [facility] located at [address] [place] [address].SARS-CoV-2/Flu/RSV Multiplex Test: Fact sheet for providers: https://www.fda.gov/media/934787/downloadFact sheet for patients: https://www.fda.gov/media/629214/download Covid 19 Resultson 2 SARS-CoV-2 (COVID-19) RNA [...] by the [facility] to see if any of your [...] or Naproxen (Aleve) can also be used. Veme-zdb-usjtuve cough and cold medicines can be used according to the instructions on the package. Some wmgg-zst-adxqnfu medicines also contain acetaminophen. Make sure you [...] water are not available, use alcohol-based hand bottle labeler. Avoid touching your eyes, nose, and mouth [...] 24 mariella (more content not included)... 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 Pt is interested in speaking to her anesthesia team further about her intra- and sturat-op pain management. During the interview, patient grows [...] he has been working (cardoza at a [employer]), but she looks forward to his [...] her suboxone. Objective: Objective Information: T PRBPSpO2 Value36.23749996/9095% Date/Time09/17 4: 10: 10: 10: 10:00 Range(35.7C - 36.6C ) (81 - 89 ) (10 - 23 ) (73 - 117 )/ (43 - 90 ) (91% - 96% ) As of 17-Sep-2021 08:00:00, patient is on 3 L/min of oxygen via nasal cannula. Pain reported at 09/17 8:00: 8 = Severe ---- Intake and Output ----- Mn/Dy/Year TimeIntakeOutputNet Sep 17, 2021 6:00 [id number] Sep 16, 2021 2:00 [id number] The Intake and Output Totals for the last 24 hours are: IntakeOutputNet [id number] Mental Status Exam: General: Awake, lying in [...] a Da (more content not included)... Normal [facility] Daily Progress Note-Neurosur jinny 09-17-2021 Daily Progress Note-Neurosurgery Service: Neurosurgery Subjective Data: MORALES LEE is a 46 year old Female who is Hospital Day # 3. Objective Data: Objective Information: T PRBPSpO2 Value35.5139167/4393% Date/Time09/16 18:5409/16 18:5409/16 18:5409/16 18:5409/16 18:54 Range(35.7C - 36.4C ) (81 - 91 ) (15 - 24 ) (87 - 118 )/ (43 - 84 ) (91% - 96% ) As of 16-Sep-2021 18:54:00, patient is on 2 L/min of oxygen via nasal cannula. Pain reported at 09/16 16:34: 10 = Severe ---- Intake and Output ----- Mn/Dy/Year TimeIntakeOutputNet Sep 16, 2021 2:00 [id number] Physical Exam by System: Neurological: A&Ox3 RUE [...] the note. I personally evaluated the patient [id number] Comments/ Additional Findings I again explained to [...] Updated: 19-Sep-2021 10:16 by Lex Frederick) Normal [facility] HCG,URINEon 09-17-2021 Beta HCG ( test) Ql (U) Negative Normal Negative [facility] Comment on above: Performed By: #### A FPA3 #### [facility] [address] [place] [address] Laboratory - Blood bankon ABO group Nom (Bld) O MG-Ga stroen terology-Rosendo lwell 6 [facility] Work Phone: Blood group antibody investigation [...] 09-17-2021 REQUEST-LEUKOREDUCED RED CELLS ORDER RECD Normal [facility] Comment on above: Performed By: #### O REGIONAL SAFETY MANAGER #### [facility] [address] [place] [address] TYPE + SCREENon 09-17-2021 ABO TYPE O Normal [facility] Comment on above: Performed By: #### T +S #### [facility] [address] [place] [address] RH TYPE Positive Normal [facility] Comment on above: Performed By: #### T +S #### [facility] [address] [place] [address] Urine Teston 09-17 HCG ( test) Ql (U) Negative Negative MG-Gastroen terology-Rosendo lwell 6 [facility] Work Phone: BNPon 09-16-2021 Natriuretic peptide B (Bld) [Mass/Vol] 37 pg/mL Normal 0 - 99 [facility] Comment on above: Result Comment: . <1 [...] information. Performed By: #### A FPA3 #### [facility] [address] [place] [address] CBC AND DIFFERENTIALon 09-16 % AUTOMATED IMMATURE GRAN 0.5 % Normal 0.0 - 0.9 [facility] Comment on above: Result Comment: Jaleesa ture Granulocyte Count (IG) includes promyelocytes, myelocytes and metamyelocytes but does not include bands. Percent differential counts (%) should be interpreted in the context of the absolute cell counts (cells/L). Performed By: #### C BCDF ####[id number] [place] [address] Basophils (Bld) [#/Vol] 0.04 10*3/uL Normal 0.00 - 0.10 [facility] Comment on above: Performed By: #### C BCDF ####[id number] [place] [address] Basophils/100 WBC (Bld) 0.5 % Normal 0.0 - 2.0 [facility] Comment on above: Performed By: #### C BCDF ####[id number] [place] [address] Eosinophils (Bld) [#/Vol] 0.26 10*3/uL Normal 0.00 - 0.70 [facility] Comment on above: Performed By: #### C BCDF ####[id number] [place] [address] Eosinophils/100 WBC (Bld) 3.0 % Normal 0.0 - 6.0 [facility] Comment on above: Performed By: #### C BCDF ####[id number] [place] [address] Erythrocyte distribution width (RBC) [Ratio] 13.0 % Normal 11.5 - 14.5 [facility] Comment on above: Performed By: #### C BCDF ####[id number] [place] [address] Hematocrit (Bld) [Volume fraction] 42.7 % Normal 36.0 - 46.0 [facility] Comment on above: Performed By: #### C BCDF ####[id number] [place] [address] Hemoglobin (Bld) [Mass/Vol] 14.1 g/dL Normal 12.0 - 16.0 [facility] Comment on above: Performed By: #### C BCDF ####[id number] [place] [address] Lymphocytes (Bld) [#/Vol] 3.17 10*3/uL Normal 1.20 - 4.80 [facility] Comment on above: Performed By: #### C BCDF ####[id number] [place] [address] Lymphocytes/100 WBC (Bld) 37.2 % Normal 13.0 - 44.0 [facility] Comment on above: Performed By: #### C BCDF ####[id number] [place] [address] MCHC (RBC) [Mass/Vol] 33.0 g/dL Normal 32.0 - 36.0 [facility] Comment on above: Performed By: #### C BCDF ####[id number] [place] [address] MCV (RBC) [Entitic vol] 91 fL Normal 80 - 100 U [facility] Comment on above: Performed By: #### C BCDF ####[id number] [place] [address] Monocytes (Bld) [#/Vol] 0.47 10*3/uL Normal 0.10 - 1.00 [facility] Comment on above: Performed By: #### C BCDF ####[id number] [place] [address] Monocytes/100 WBC (Bld) 5.5 % Normal 2.0 - 10.0 [facility] Comment on above: Performed By: #### C BCDF ####[id number] [place] [address] Neutrophils (Bld) [#/Vol] 4.55 10*3/uL Normal 1.20 - 7.70 [facility] Comment on above: Performed By: #### C BCDF ####[id number] [place] [address] Neutrophils/100 WBC (Bld) 53.3 % Normal 40.0 - 80.0 [facility] Comment on above: Performed By: #### C BCDF ####[id number] [place] [address] NUCLEATED RBC 0.0 /100 WBC Normal 0.0-0.0 [facility] Comment on above: Performed By: #### C BCDF ####[id number] [place] [address] Platelets (Bld) [#/Vol] 278 10*3/uL Normal 150 - 450 [facility] Comment on above: Performed By: #### C BCDF ####[id number] [place] [address] RBC 4.70 x10E12/L Normal 4.00 - 5.20 [facility] Comment on above: Performed By: #### C BCDF ####[id number] [place] [address] WBC (Bld) [#/Vol] 8.5 10*3/uL Normal 4.4 - 11.3 [facility] Comment on above: Performed By: #### C BCDF ####[id number] [place] [address] COAGULATION SCREENon 022 aPTT Coag (Bld) [Time] 31 s Normal 26 - 39 [facility] Comment on above: Result Comment: Note new reference range as of 08/04/2021 at 10:00am. Performed By: #### V FPA3 #### [facility] [address] [place] [address] PT Coag (PPP) [Time] 11.6 s Normal 9.8 - 13.4 [facility] Comment on above: Result Comment: Note new reference range as of 08/04/2021 at 10:00am. Performed By: #### V FPA3 #### [facility] [address] [place] [address] PT, INR 1.0 Normal 0.9 - 1.1 [facility] Comment on above: Performed By: #### V FPA3 #### [facility] [address] [place] [address] Clinical Event Note-ADMISSIO N CLARIFICATIONon 09-16-2021 Clinical [...] and monitoring for withdrawal. Provider/Team Contact Info-Pager [phone] Electronic Signatures: Sharmin Guaman (FINANCIAL SYSTEMS ADMINISTRATOR-FLY FISHING GUIDE) (Signed 16-Sep-2021 12:07) Authored: Clinical Event Note Last Updated: 16-Sep-2021 12:07 by Sharmin Guaman (FINANCIAL SYSTEMS ADMINISTRATOR-FLY FISHING GUIDE) Normal [facility] Complete Blood Count + Diffe rentialon 09-16-2021 [...] - 11.3 MG-Gas troen terology-Rosendo ell 6 [facility] Work Phone: Complete Blood Count + Differential 0.04 {x10E9/L} See Below MG-Gastroen terology-Rosendo ell 6 [facility] Work Phone: Comment on above: Reference Range: 0.0 0 - 0.10 Complete Blood Count + Differential 0.26 {x10E9/L} See Below MG-Gastroen terology-Rosendo ell 6 [facility] Work Phone: Comment on above: Reference Range: 0.0 0 - 0.70 Complete Blood Count + Differential 0.47 {x10E9/L} See Below MG-Gastroen terology-Rosendo [facility] Work Phone: Comment on above: Reference Range: 0.1 0 - 1.00 Complete Blood Count + Differential 3.17 {x10E9/L} See Below MG-Gastroen terology-Rosendo [facility] 6 [facility] Work Phone: Comment on above: Reference Range: 1.2 0 - 4.80 Complete Blood Count + Differential 4.55 {x10E9/L} See Below MG-Gastroen terology-Rosendo [facility] 6 [facility] Work Phone: Comment on above: Reference Range: 1.2 0 - 7.70 Complete Blood Count + Differential 3.0 % 0.0 - 6.0 MG-Gastroen terology-Rosendo [facility] 6 [facility] Work Phone: Complete Blood Count + Differential 0.5 % 0.0 - 0.9 MG-Gastroen terology-Rosendo lwell 6 [facility] Work Phone: Comment on above: Immature Granulocyte Count (IG) includes promyelocytes, myelocytes and metamyelocytes but does not include bands. Percent differential counts (%) should be interpreted in the context of the absolute cell counts (cells/L). Complete Blood Count + Differential 0.0 {/100_WBC} 0.0-0.0 MG-Gastroen terology-Rosendo ell 6 [facility] Work Phone: Consult-Painon 09-16-2021 Consult-Pain Service: Service: Pain Consult: Consult requested by (Attending Name): Dr. Frederick Reason: Perioperative Pain Management History of Present Illness: Admission Reason: Spine surgery HPI: Morales Lee is a 46-year-old female with a h/o C6-7 ACDF, T1 comp fx s/p T11- lami c/b [...] h/o C6-7 ACDF, T1 comp fx s/p T11- lami c/b [...] the note. I personally evaluated the patient [id number] Electronic Signatures: Chidi Lamar (Fellow)) (Signed 16-Sep-2021 [...] From Consult - Psychiatry 15-Sep-2021 20:42 Normal [facility] Consult-Perioperative Medici neon 09-16-2021 Consult-Perioperative Medicine Service: [...] penicillin: Unknown Objective: Objective Information: T PRBPSpO2 Value36.56883785/8491% Date/Time09/16 11: 12:4909/16 12:4909/16 12:4909/16 12:49 Range(36.3C - 36.4C [...] 100 mg (more content not included)... Normal [facility] Cult, Urineon 09-16-2021 Bacteria identified Cx Nom (U) Abnormal MG-Gastroen terology-Rosendo moura 6 [facility] Work Phone: Daily Progress Note-Neurosur gergaurang 09-16-2021 Daily Progress Note-Neurosurgery Service: Neurosurgery Subjective Data: MORALES LEE is a 46 year old Female who is Hospital Day # 3. Objective Data: Objective Information: T PRBPSpO2 Value36.6221708/6693% Date/Time09/16 1:411 4: 4: 4: 4:00 Range(36.3C [...] the note. I personally evaluated the patient [id number] Comments/ Additional Findings TO OR this Tuesday if medically optimized for T12 - Pelvis fusion and Instrumentation. Pain consult for management regrading Suboxone and pain control in the perioperative period. US LE MRI of the lumbar spine., Lex Frederick MD, [facility], FAANS Director - Minimally Invasive Spine Surgery [facility] [employer] of Neurological Surgery [employer] [facility] [employer] [place], [place] Electronic Signatures: Fidel Maciel (Resident)) (Signed 16-Sep-2021 04:33) Authored: Service, Subjective Data, Objective Data, Assessment and Plan, Note Completion Lex Frederick) (Signed 16-Sep-2021 10:22) Authored: Note Completion Co-Signer: Service, Subjective Data, Objective Data, Assessment and Plan, Note Completion Last Updated: 16-Sep-2021 10:22 by Lex Frederick) Normal [facility] EMR ADDONon 09-16-2021 ADDON CONFIRMATION REQUEST REC'D Normal [facility] Comment on above: Performed By: #### E MRAD ####NO LOCATION NEEDED Laboratory - Coagulationon 0 09-16-2021 aPTT Coag (PPP) [Time] 31 s 26 - 39 MG -Gastroen terology-Rosendo gretaell 6 I Work [...] above: . <100 pg/mL - Heart failure [id number] pg/mL - Intermediate probability of acute heart. [...] [Mass/Vol] 3.5 g/dL Normal 3.4 - 5.0 [facility] Comment on above: Performed By: #### R ENAL #### [facility] [address] [place] [address] Anion gap [Moles/Vol] 14 mmol/L Normal 10 - 20 [facility] Comment on above: Performed By: #### R ENAL #### [facility] [address] [place] [address] Calcium [Mass/Vol] 8.9 mg/dL Normal 8.6 - 10.6 [facility] Comment on above: Performed By: #### R ENAL #### [facility] [address] [place] [address] Chloride [Moles/Vol] 101 mmol/L Normal 98 - 107 [facility] Comment on above: Performed By: #### R ENAL #### [facility] [address] [place] [address] Creatinine [Mass/Vol] 0.63 mg/dL Normal 0.50 - 1.05 [facility] Comment on above: Performed By: #### R ENAL #### [facility] [address] [place] [address] eGFR FEMALE >90 Normal >90 [facility] Comment on above: Result Comment: CALC ULATIONS OF ESTIMATED GFR ARE PERFORMED USING THE 2020 CKD-EPI STUDY REFIT EQUATION WITHOUT THE RACE VARIABLE FOR THE IDMS-TRACEABLE CREATININE METHODS. https://jasn.asnjournals.org/content/early/ASN.596 3552397 Performed By: #### R ENAL #### [facility] [address] [place] [address] Glucose [Mass/Vol] 88 mg/dL Normal 74 - 99 [facility] Comment on above: Performed By: #### R ENAL #### [facility] [address] [place] [address] HCO3 (Bld) [Moles/Vol] 29 mmol/L Normal 21 - 32 [facility] Comment on above: Performed By: #### R ENAL #### [facility] [address] [place] [address] Phosphate [Mass/Vol] 3.4 mg/dL Normal 2.5 - 4.9 [facility] Comment on above: Result Comment: The performance characteristics of phosphorus testing in heparinized plasma have been validated by the individual laboratory site where testing is performed. Testing on heparinized plasma is not approved by the FDA; however, such approval is not necessary. Performed By: #### R ENAL #### [facility] [address] [place] [address] Potassium [Moles/Vol] 3.7 mmol/L Normal 3.5 - 5.3 [facility] Comment on above: Performed By: #### R ENAL #### [facility] [address] [place] [address] Sodium [Moles/Vol] 140 mmol/L Normal 136 - 145 [facility] Comment on above: Performed By: #### R ENAL #### [facility] [address] [place] [address] Urea nitrogen [Mass/Vol] 10 mg/dL Normal 6 - 23 [facility] Comment on above: Performed By: #### R ENAL #### [facility] [address] [place] [address] Renal Function Panelon 09-16 Albumin BCP dye [...] RACE VARIABLE FOR THE IDMS-TRACEABLE CREATININE METHODS.https://jasn.asnjournals.org/content/early /ASN.2241164814 UA MICROSCOPICon 09-16-2021 BACTERIA 2+ /HPF Abnormal [facility] Comment on above: Performed By: #### U AMIC ####[id number] [place] [address] Mucus Ql (Urine sed) 1+ /LPF Normal [facility] Comment on above: Performed By: #### U AMIC ####[id number] [place] [address] RBC 3 /HPF Normal 0-5 [facility] Comment on above: Performed By: #### U AMIC ####[id number] [place] [address] SQUAMOUS EPITH. CELLS 2 /HPF Normal [facility] Comment on above: Performed By: #### U AMIC ####[id number] [place] [address] WBC 115 /HPF Abnormal 0-5 [facility] Comment on above: Performed By: #### U AMIC ####[id number] [place] [address] URINALYSISon 09-16-2021 Appearance (U) HAZY Normal CLEAR [facility] Comment on above: Performed By: #### U A ####[id number] [place] [address] Bilirubin Ql (U) Negative Normal NEGATIVE [facility] Comment on above: Performed By: #### U A ####[id number] [place] [address] Color (U) YELLOW Normal STRAW,YELL OW [facility] Comment on above: Performed By: #### U A ####[id number] [place] [address] Glucose Ql (U) Negative Normal NEGATIVE [facility] Comment on above: Performed By: #### U A ####[id number] [place] [address] Hemoglobin Ql (U) Negative Normal NEGATIVE [facility] Comment on above: Performed By: #### U A ####[id number] [place] [address] Ketones Ql (U) Negative Normal NEGATIVE [facility] Comment on above: Performed By: #### U A ####[id number] [place] [address] Leukocyte esterase Test strip Ql (U) LARGE (3+) Abnormal NEGATIVE [facility] Comment on above: Performed By: #### U A ####[id number] [place] [address] Nitrite Ql (U) Positive Abnormal NEGATIVE [facility] Comment on above: Performed By: #### U A ####[id number] [place] [address] pH (U) 6.0 [pH] Normal 5.0 - 8.0 [facility] Comment on above: Performed By: #### U A ####[id number] [place] [address] Protein Ql (U) Negative Normal NEGATIVE [facility] Comment on above: Performed By: #### U A ####[id number] [place] [address] Specific gravity (U) [Rel density] 1.011 Normal 1.005 - 1.035 [facility] Comment on above: Performed By: #### U A ####[id number] [place] [address] Urobilinogen (U) [Mass/Vol] 2.0 mg/dL High 0.0 - 1.9 [facility] Comment on above: Result Comment: Due to [...] positive urobilinogen. Performed By: #### U A ####[id number] [place] [address] URINE CULTURE,BACTERIALon URINE CULTURE,BACTERIAL PATIENT: Fay LEE LOCATION: [facility]#: [id number] : 71 AGE: SEX: F ORDERED BY: TOSHA BORJA SOURCE: URINE COLLECTED: 09/16/21 08:42 ANTIBIOTICS AT [facility].: RECEIVED : 09/16/21 17:08 SITE: [facility] URINE CULTURE,BACTERIAL FINAL 09/18/21 09:19 ISOLATE1 : Escherichia coli >100,000 CFU/ML Organism E coli Antibiotic BP INTRP Ampicillin S Ceftriaxone S Cefazolin S Ciprofloxacin R Nitrofurantoin S Gentamicin S Levofloxacin R Piperc/Tazobact S Trimeth/Sulfa S ___ S=SUSCEPTIBLE I=INTERMEDIATE R=RESISTANT SDD=SUSCEPTIBLE DOSE DEPENDENT NS=NONSUSCEPTIBLE X=REPORTED IN ERROR ___ Normal [facility] Comment on above: Performed By: #### A FPA3 #### [facility] [address] [place] [address] Urinalysison 09-16-2021 Color (U) YELLOW See Below [...] (U) [Mass/Vol] Negative NEGATIVE [facility] 6 I [...] Microscopicon Urinalysis, Microscopic 1+ M [facility] I Work Phone: Urinalysis, Microscopic 2+ Abnormal M [facility] Work Phone: Urinalysis, Microscopic 2 {/HPF} M [facility] Work Phone: Urinalysis, Microscopic 3 {/HPF} 0-5 [facility] Work Phone: Urinalysis, Microscopic 115 {/HPF} Abnormal 0-5 [facility] Work Phone: VASC LAB Venous Duplex Ultra sound DVTon 09-16-2021 VASC LAB Venous Duplex Ultrasound DVT [place] [address] and Vascular Lab Report Lower Venous Duplex Ultrasound Patient Name: MORALES LEE Reading Physician: [id number] Arjun Romero MD, RPCONSUELO Study Date: 09/16/2021 Referring Physician: [id number] HARRISON RAGSDALE MRN/PID: [id number] PCP: Accession/Order#: [id number] CC Report to: Date of : 1975 Technologist: Greyson Burleson RVAudra Gender: F Technologist 2: Admission Status: Outpatient Location Performed: [facility] Diagnosis/ICD: M79.89-Left leg swelling; M79.89-Right leg swelling Procedure/CPT: 71541 Peripheral venous duplex scan for DVT complete-12258 CONCLUSIONS: Right Lower Venous: No evidence of [...] Spontaneous/Phasic Peroneal Yes None PTV Yes None [id number] Arjun Romero MD, YOLIE Final Normal [facility] VAS LAB Venous Duplex Ultra sound for DVTon 09-16-2021 VAS LAB Venous Duplex Ultrasound for DVT [facility] 6 [facility] Work Phone: No Panel Informationon 09-15 [email or web address] ?RetrieveTestByDateTime?P [email or web address]=[id number]&Date=1 09-05-2021&Time=19%3a14%3a 23%3a00&TestType=ECG&Site =1&OutputType=PDF&Ext=PDF [facility] Work Phone: Normal sinus rhythm MG-Ga stroen terology-[place] [facility] 6 [facility] Work Phone: Abnormal [facility] Work Phone: [phone] [facility] Work Phone: [phone] [facility] Work Phone: [phone] [facility] 6 [facility] Work Phone: [phone] [facility] Work Phone: [phone] [facility] 6 [facility] Work Phone: [phone] [facility] 6 [facility] Work Phone: [phone] [facility] 6 [facility] Work Phone: [phone] [facility] 6 [facility] Work Phone: [phone] [facility] [facility] 6 [facility] Work Phone: [phone] 1 [facility] 6 [facility] Work Phone: [phone] [facility] 6 [facility] Work Phone: [phone] [facility] 6 [facility] Work Phone: [phone] [facility] 6 [facility] Work Phone: [email or web address] ?RetrieveTestByDateTime?P zvukscJU=[id number]&Date=1 1-01-2022&Time=19%3a14%3a 42%3a00&TestType=ECG&Site =1&OutputType=PDF&Ext=PDF [facility] Work Phone: [...] (Advanced Practice Nurse) done by Concetta Shi (FINANCIAL SYSTEMS ADMINISTRATOR-[facility]) Admission - Reconciliation: 15-Sep-2021 19:03 by: Fidel Maciel (Resident)) Admission - Reset to Incomplete: 15-Sep-2021 21:47 by: Fidel Maciel (Resident)) Admission - Reconciliation: 15-Sep-2021 21:49 by: Fidel Maciel (Resident)) Admission - Reset to Incomplete: 16-Sep-2021 00:41 by: Fidel Maciel (Resident)) Admission - Reconciliation: 16-Sep-2021 00:42 by: Fidel Maciel (Resident)) Admission - Reset to Incomplete: 30-Sep-2021 14:18 by: Concetta Shi ([facility]) Admission - Reconciliation: 30-Sep-2021 14:20 by: Concetta Shi ([facility]) Home MedicationsEnteredLast Dose TakenReconciled with current Order Reconciliation Comment/ Additional Information acetaminophen 325 mg oral tablet 2 tab(s) orally every 6 hours, as needed while having post operative [id number]-6867 Reviewed and Held Ambien CR 12.5 mg oral tablet, extended release 1 tab(s) oral tnh54-Mmj-6382 Zolpidem Tablet (AMBIEN)DOSE = 10 mg Oral At BedtimeNotes from Pharmacy: Substitution For Zolpidem (Ambien CR) 12.5 mg at Bedtime Ambien CR 12.5 mg oral tablet, extended release continued as the inpatient order Zolpidem Ankle Foot Orthosis for foot [id number]-8855 Reviewed and Held betamethasone topical valerate 0.1% topical cream 1 waed topical prn 15-Sep-2021 EnteredInError Reviewed and Held Bilateral Prafos - orthotics to fit, - ICD 10: R26.0, M21.37, M62.81 30-Sep-2021 Reviewed and Held calcium-vitamin D 500 mg-200 intl units (5 mcg) oral tablet 1 tab(s) orally 4 times a gcd07-Ayq-5709 Calcium 500 mg - Vitamin D 200 [...] times a day, as needed for muscle puogen69-Npn-9534 Cyclobenzaprine Tablet (FLEXERIL)DOSE = 10 mg Oral [...] Held diclofenac topical 1% topical gel 1 wade topical isx05-Qnv-1320 Reviewed and Held DULoxetine 30 mg oral [...] 2 tab(s) orally once a day, As Rheceb09-Gmz-6742 Reviewed and Held gabapentin 800 mg oral tablet 1 tab(s) oral 3 times a ehw50-Zpm-5321 Gabapentin Capsule (NEURONTIN)DOSE = 800 mg Oral 3 Times a Day gabapentin 800 mg oral tablet continued as the inpatient order Gabapentin LEFT AFO -Orthotics to fit, ICD 10: M21.9641-Ylu-7831 Reviewed and Held lidocaine 5% topical film Apply topically to affected area once a day, As Needed near surgical incision for incisional pain 15-Sep-2021 EnteredInError Reviewed and Held lisinopril 20 mg oral tablet 1 tab(s) oral once a kbd52-Jbf-4282 Lisinopril Tablet (PRINIVIL, ZESTRIL)DOSE = 20 mg [...] - available over the counter at any vdaxctde13-Cwq-2059 Reviewed and Held RIGHT AFO - Orthotics to fit, - M21.1300-Xia-3643 Reviewed and Held sennosides-docusate 8.6 mg-50 mg oral tablet 2 tab(s) orally 2 times a day , -Take while using oxycodone for post operative pain to prevent contipation 15-Sep-19 (more content not included)... Normal [facility] Radiologyon 09-15-2021 XR Chest Single view Normal MG-G astroen terology-[facility] 6 [facility] Work Phone: TH CHEST 1 VIEWon 09-15-2021 TH CHEST 1 VIEW Patient Name: MORALES LEE STUDY: CHEST 1 VIEW; 09/15/2021 7:21 pm INDICATION: pre-op . COMPARISON: 12/26/2020. ACCESSION NUMBER(S): [id number] ORDERING CLINICIAN: TOSHA BORJA FINDINGS: CARDIOMEDIASTINAL SILHOUETTE: [...] Electronically signed by: Esther PEDERSON MD Normal [facility] Established Visit (Neurosurg ariana)on 09-08-2021 Established Visit [...] in the Neurosurgery Spine Clinic at the [facility]. She is a very pleasant 46-year-old [...] obvious instability (more content not included)... Normal Unique Property No Panel Informationon 09-08 Normal MG-Neurosur Yanira [...] and T6-L4 Fusion. COMPARISON: None. ACCESSION NUMBER(S): [id number] ORDERING CLINICIAN: LEX FREDERICK FINDINGS: Fused PA [...] appearance. Electronically signed by: JOSEPH SALAZAR MD [facility] Tobacco Screening.on 022 Fall risk assessment b) One or more fall s in the last year [facility] Work Phone: Tobacco use status CPHS a) Yes M [facility] Work Phone: Established Visit (Neurosurg ariana)on 05-05-2021 Established Visit (Neurosurgery) History of Present Illness I just had the pleasure of seeing Mrs. Lee back in the Neurosurgery Spine Clinic at the [facility]. She is a very pleasant 45 -year-old female, who recently underwent a L1 Vertbrectomy and T6-L4 Fusion with nc on 12/26/2020 and is status post 4 Months out from her surgery. Today's visit was a virtual visit with the patient at her home and myself at [facility]. She mentions that overall she is [...] in Ms. JESUS hollis. Lex Frederick MD, [facility], FAANS Director - Minimally Invasive Spine Surgery [facility] Stripper Color of Neurological Surgery [employer] [facility] [employer] [place], [place] Some of this note was completed using [employer] voice recognition technology and sometimes the software [...] in the Neurosurgery Spine Clinic at the [facility]. She is a very pleasant 45 -year-old female, who recently underwent a L1 Vertbrectomy and T6-L4 Fusion with nc on 12/26/2020 and is status post 2 [...] the further treatment plan. Lex Frederick MD, [facility], FAANS Director - Minimally Invasive Spine Surgery [facility] Assembly Line Driver of Neurological Surgery [employer] [facility] [employer] [place], [place] Some of this note was completed using [employer] voice recognition technology and sometimes the software [...] Unspecified cord compression. COMPARISON: None. ACCESSION NUMBER(S): [id number] ORDERING CLINICIAN: LEX FREDERICK TECHNIQUE: Multiplanar and [...] Electronically signed by: LENNY HAGER MD Normal [facility] NR MRI L-SPINE WOon 12-12-19 NR MRI L-SPINE WO Patient Name: MORALES LEE STUDY: MRI L-SPINE WO; ; 12/11/2020 1:38 pm INDICATION: Lumbar Pain Scoliosis, unspecified Low back pain. COMPARISON: CT lumbar spine from 10/07/2020. MRI lumbar spine from 03/11/2016. ACCESSION NUMBER(S): [id number] ORDERING CLINICIAN: LEX FREDERICK TECHNIQUE: MRI of [...] multiple levels. This study was interpreted at [facility]. Electronically signed by: WESLEY CARABJAL MD [facility] Initial Visit (Neurosurgery) on 10-28-2020 Initial [...] Status:Resulted - Preliminary,Retrospective By Protocol Authorization; Done: 28Oct2020 12:00AM Reason: Unspecified for Xray Spine, entire thoracic/lumbar, include skull, cervical and sacral spine when performed, 2 or 3 view Radiologist to Determine Optimal Study : Y What are the patient's signs and symptoms? : Lumbar Pain SocHx: Current smoker Tobacco Use Screening; Status:Complete; Done: 28Oct2020 Patient Discussion/Summary It was a pleasure to see Ms. LEE at the Neurosurgery Spine Clinic at [facility]. Ms. LEE is a really [...] and thoracic kyphosis few years back in [place]. She now has been having severe symptoms [...] another spine surgeon at the [facility] who recommended urgent surgery for her on [...] even walk (more content not included)... [facility] MORALES LEE ([id number]) 1975 F Date Time Provider Department 07/10/19 DIXIE TEE [facility] During your visit today, we recorded the [...] Tee MD CC: Dr. Quan, . Alonso Dao RN 07/11/2019 4:42 PM Signed [...] Order(s):CONSULT TO ORTHOPAEDIC SURGERY [19991006] Order #: [id number]: 1 Prescriptions as of 07/10/2019 Sig: LISINOPRIL [...] Status:Closed by DIXIE TEE MD on 07/10/19 [facility] CNOVon 07-09-2019 CNOV Office Visit (SPNSMN ) ----- MORALES LEE ([id number]) 1975 F Date Time Provider Department 07/09/19 9:30 AM STEVENSON QUAN SPNSMN During your visit today, we recorded the following information about you: Pulse Respiration Blood pressure Weight 89/minute 18/minute 124/74 95.8 kg Height 1.499 m Stevenson Quan MD 07/09/2019 2:56 PM Signed SPINE SURGERY OUTPATIENT CONSULT SERVICE DATE: 07/09/2019 PCP: No primary care provider on file. REFERRING PROVIDER: Dixie Tee MD [address] [facility] [address] Consult requested for an opinion regarding the [...] file Gets together: Not on file Attends quaker service: Not on file Active member of [...] with the patient or the patient?s personal cordage sales representative. 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] Other Visit Diagnosis:Spinal stenosis of thoracic region [M48.04] Order(s):CT THORACIC SPINE WO IVCON [9030031] Order #: [id number] FUTURE Prescriptions as of 07/09/2019 Sig: LISINOPRIL [...] Status:Closed by STEVENSON QUAN MD on 07/09/19 [facility] OBSOLETEon 07-09-2019 OBSOLETE Procedure (EMGMN) ----- MORALES LEE ([id number]) 1975 F Date Time Provider Department 07/09/19 7:45 AM EMG 1 NEUR MAIN EMGMN During your visit today, we recorded the following information about you: Referring Provider: DIXIE TEE [[id number]] Allergies As of Date: 07/09/2019 Noted Allergy Reaction CODEINE 10/24/2010 7 - Swelling PENICILLINS 10/24/2010 7 - Swelling PHENERGAN (PROMETHAZINE HCL) 10/24/2010 7 - Swelling Date Reviewed: 06/20/2019 Reviewed by: Austyn (Evaristo) EVARISTO Berumen - Fully Assessed Reason for Visit: EMG [2011] Visit Diagnoses:Scoliosis (and kyphoscoliosis), idiopathic [M41.20] Compression fracture of thoracic vertebra, initial encounter, unspecified thoracic vertebral level (HCC) [S22.000A] H/O cervical spine surgery [Z98.890] Lesion of ulnar nerve, left upper limb [G56.22] Lesion of ulnar nerve, right upper limb [G56.21] Order(s):EMG(NEURO/NI) [20101204] Order #: [id number]: 1 Prescriptions as of 07/09/2019 Sig: LISINOPRIL [...] by JHON EASON MD on 07/09/19 Normal [facility] PROGRESSon 07-09-2019 PROGRESS HNO ID: [id number] Author: Stevenson Quan Service: ? Author Type: Physician Type: Progress Notes Filed: 07/09/2019 2:56 PM Note Text: SPINE SURGERY OUTPATIENT CONSULT SERVICE DATE: 07/09/2019 PCP: No primary care provider on file. REFERRING PROVIDER: Dixie Tee MD [address] [facility] [address] Consult requested for an opinion regarding the [...] file Gets together: Not on file Attends quaker service: Not on file Active member of [...] with the patient or the patient?s personal cordage sales representative. The patient has elected to [...] 09, 2019 TIME: 10:24 AM PAGER: Normal [facility] OT-XR DEXA BONE DENSITY IMPO RTon 07-06-2019 OT-XR DEXA BONE DENSITY IMPORT Images were obtained outside of [facility] [id number] Normal [facility] CASE MGT INIT ASSESon 2018 CASE MGT INIT ASSES HNO ID: [id number] Author: Kimberly WilksRn) EVARISTO Dunaway Service: ? Author Type: Registered Nurse Type: Care Mgt Initial Assessment Filed: 06/20/2019 12:25 PM Note Text: CARE MANAGEMENT: ASSESSMENT AND DISCHARGE PLAN SERVICE DATE: 06/20/2019 SERVICE TIME: 12:21 PM PRIMARY CARE PHYSICIAN: No primary care provider on file. Phone: None ADMISSION STATUS: Observation Needs Prior to Discharge: To Be Determined MEDICAL: Patient/Roll Tension Tester Stated Goals: To have reduction in pain To have reduction in symptoms Health Insurance: [employer] PPO Health Issues Impacting Discharge Plan: Chronic neck pain Last Discharge Date: 06/20/19 Is this Within the Past 30 days? No Advance Directive: Current Advance Directive: None Under Cutter Attempted to Assist with AD Completion: Yes [...] Extended Emergency Contact Information Primary Emergency Contact: JesusBelinda Address: [address] [place] [address] [facility] Mobile Relation: Spouse Supportive: [...] 0 I feel financially burdened by my nzh-ab-whgfjd expenses for my prescription medication: Disagree completely [...] 20, 2019 TIME: 12:21 PM PAGER/CONTACT #: [phone] Normal [facility] CBCon 06-20-2019 Erythrocyte distribution width (RBC) [Ratio] 12.6 % Normal 11.5-15.0 [facility] Comment on above: Performed By: #### C BC #### [facility] [address] [place] [address] Hematocrit (Bld) [Volume fraction] 48.7 % High 36.0-46.0 [facility] Comment on above: Performed By: #### C BC #### [facility] [address] [place] [address] Hemoglobin (Bld) [Mass/Vol] 16.8 g/dL High 11.5-15.5 [facility] Comment on above: Performed By: #### C BC #### [place] [phone] MCH (RBC) [Entitic mass] 31.1 pG Normal 26.0-34.0 [facility] Comment on above: Performed By: #### C BC #### [place] [phone] MCHC (RBC) [Mass/Vol] 34.5 g/dL Normal 30.5-36.0 [facility] Comment on above: Performed By: #### C BC #### [place] [phone] MCV (RBC) [Entitic vol] 90.0 fL Normal 80.0-100.0 [facility] Comment on above: Performed By: #### C BC #### [place] [phone] Platelet mean volume (Bld) [Entitic vol] 10.6 fL Normal 9.0-12.7 [facility] Comment on above: Performed By: #### C BC #### [place] [phone] Platelets (Bld) [#/Vol] 334 10*3/uL Normal 150-400 [facility] Comment on above: Performed By: #### C BC #### [place] [phone] RBC (Bld) [#/Vol] 5.41 10*6/uL High 3.90-5.20 [facility] Comment on above: Performed By: #### C BC #### [place] [phone] WBC (Bld) [#/Vol] 10.85 10*3/uL Normal 3.70-11.00 [facility] Comment on above: Performed By: #### C BC #### [place] [address] CONSULTon 06-20-2019 CONSULT HNO ID: [id number] Author: Evelyn Resendez Service: Pain Management Author [...] me to leave. She is now leaving [place]. 3. Will sign off _ SUBJECTIVE CHIEF [...] activity was identified. 06/20/2019 by Evelyn Resendez APRN.FLY FISHING GUIDE PAST MEDICAL HISTORY Diagnosis Date - Degenerative [...] file Gets together: Not on file Attends quaker service: Not on file Active member of [...] the Morales Lee's care. SIGNATURE: Evelyn Resendez APRN.FLY FISHING GUIDE PATIENT NAME: Morales Lee DATE: June 20, 2019 TIME: 8:24 AM PAGER/CONTACT #: [phone] (M-F 8-5) [facility] CT BRAIN WO IVCONon 06-20-20 CT [...] No large cortical infarct or acute hemorrhage. Supervisor Furnace Room: PSCB Transcribe Date/Time: Jun 20 2019 1:33A Dictated by : DAVONTE MOY MD This examination was interpreted and the report reviewed and electronically signed by: DAVONTE MOY MD on Jun 20 2019 1:35AM EST [id number] [facility] ECG COMPLETEon 06-20-2019 ECG COMPLETE NAME : MORALES LEE PID : [id number] : 1975 Gender : Female Race : ORD : [id number] Procedure Date : Jun 19 2019 23:57:03 Edit Date : Jun 20 2019 07:51:18 Diagnosis:Sinus rhythm Normal ECG no STEMI 1200a Confirmed by MD ARREDONDO LISA ([id number]), manuscript editor FOREST WALTON ([id number]) on 06/20/2019 7:51:18 AM Ventricular Rate : 85 BPM Atrial Rate : 85 BPM P-R Interval : 137 ms QRS Duration : 91 ms Q-T Interval : 365 ms QTC Calculation(Bazett) : 434 ms P [place] : 51 degrees R [place] : -13 degrees T [place] : 61 degrees Test Reason : Chest Pain Location : 302 : ED AVED-1 Overread By : MD ARREDONDO LISA Edited By : FOREST WALTON Referred By : , Acquired by : [id number], [facility] ED NOTEon 06-20-2019 ED NOTE HNO ID: [id number] Author: Yuki (Evaristo) EVARISTO Cruz Service: ? Author Type: Registered Nurse Type: ED Notes Filed: 06/20/2019 1:40 AM Note Text: Patient got CT, it is still pending and Jessie MESA said ok to transfer to [place] with out results pending. Patient agreeing and understanding of transfer. updated on POC and transfer via telephone. DM here to take patient at this time. Pain is not improved at time of transfer. [facility] ED NOTE HNO ID: [id number] Author: Yuki Mckenzie) EVARISTO Cruz Service: ? Author Type: Registered Nurse Type: ED Notes Filed: 06/20/2019 1:15 AM Note Text: Clean catch urine specimen obtained and sent. [facility] ED NOTE HNO ID: [id number] Author: Yuki Mckenzie) EVARISTO Cruz Service: ? [...] time with getting transferred to another facility. [facility] ED NOTE HNO ID: [id number] Author: Yuki Mckenzie) EVARISTO Cruz Service: ? Author Type: Registered Nurse Type: ED Notes Filed: 06/20/2019 3:28 AM Note Text: Patient stated Valium did not help. She continues to be in pain and upset. She wanted to speak with someone in charge and update on POC. [facility] HISTORY PHYSICALon HISTORY PHYSICAL HNO ID: [id number] Author: Talita Wesley RN Service: General Internal [...] arm. Neck pain described as constant throbbing 03/14. She states numbness/tingling has worsened in intensity [...] tightness that is constant. Notices a decreased blower installer strength and weakness in left hand. She [...] pressure, palpitations, leg swelling. Denies hx of [place]. GI: Denies nausea, vomiting, diarrhea, abdominal pain, [...] rotation 40/80% Decreased left C5-C7 sensation. Left blower installer strength 2/5. Right blower installer strength 5/5. UE DTR intact and equal. [...] tightness into left arm, weak left hand blower installer strength, and worsening severity of numbness/tingling -Afebrile [...] confirmed with patient pharmacy. Patient uses [facility] in [place], [place]. Patient provided #[phone]. Will call in am to confirm dose. Nicotine Abuse Assessment AND Plan: Smokes 1 1/2 PPD for 20 years. Smoking cessation advised. Nicotine patch ordered. Medication and Non-Pharmacologic VTE Prophylaxis/Anticoagulant s VTE Prophylaxis: VTE prophylaxis appropriate SIGNATURE: Talita Wesley APRN.CNP PATIENT NAME: Morales Lee DATE: June 20, 2019 TIME: 2:58 AM PAGER/CONTACT #: CDU # [phone] [facility] NURSING PROGon 06-20-2019 NURSING PROG HNO ID: [id number] Author: Austyn WilksRn) EVARISTO Berumen Service: Nursing Author Type: Registered Nurse Type: Nursing Progress Note Filed: 06/20/2019 3:10 PM Note Text: Nursing Progress Note Patient Name: Morales Lee Patient Location: [place] [id number] - Daily Note:06/20/2019 -pt is upset regarding the [...] note was completed by: AUSTYN BERUMEN RN [facility] NURSING PROG HNO ID: [id number] Author: Austyn Mckenzie) EVARISTO Berumen Service: Nursing Author Type: Registered Nurse Type: Nursing Progress Note Filed: 06/20/2019 8:10 AM Note Text: Nursing Progress Note Patient Name: Morales Lee Patient Location: [id number] Daily Note:06/20/2019 -assumed care of patient, pt is requesting her suboxone. We have to call to verify dosage. -EVARISTO Acosta called pharmacy provided by night PROFESSOR OF FINANCE and the pharmacy does not open until 9am. We will call back to verify dose later. -Dr. Kwon called to speak with this RN, he will be in to see the patient later today. This note was completed by: AUSTYN BERUMEN RN [facility] NURSING PROG HNO ID: [id number] Author: Guadalupe (Rn) EVARISTO Herbert Service: ? Author Type: Registered Nurse Type: Nursing Progress Note Filed: 06/20/2019 4:33 AM Note Text: Nursing Progress Note Patient Name: Morales Lee Patient Location: [id number] Daily Note:AANDO x 3. C/O left [...] note was completed by: Guadalupe Herbert RN [facility] PROGRESSon 06-20-2019 PROGRESS HNO ID: [id number] Author: Sedrick Martin Service: General Internal Medicine [...] rales. Cor:RSR, no murmurs. 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 DATA: Diagnostic tests [...] VTE Prophylaxis/Anticoagulant s 06/20/19399 pneumatic compression stockings ([place], [place]) 06/20/19 040 activity - mobilize patient ([place] VTE Prophylaxis: appropriate SIGNATURE: Sedrick Martin MD PATIENT NAME: Morales Lee DATE: June 20, 2019 TIME: 10:41 AM PAGER: Normal [facility] PROGRESS HNO ID: [id number] Author: Sedrick Martin Service: General Internal Medicine Author Type: Physician Type: Progress Notes Filed: 06/20/2019 8:25 AM Note Text: As per Pain Management Consult still pending, I was notified by Pain Management to resume the pt.' s home Suboxone dosage until pt. Seen later today. Normal [facility] Troponin Ton 06-20-2019 Troponin T.cardiac [Mass/Vol] ug/L Normal 0.000-0.02 9 [facility] Comment on above: Performed By: #### T NT #### [facility] [address] [place] [address] Troponin T.cardiac [Mass/Vol] ug/L Normal 0.000-0.02 9 [facility] Comment on above: Performed By: #### T NT #### [facility] [address] [place] [address] Basic Metabolic Panlon 06-19 Anion gap [Moles/Vol] 14 mmol/L Normal 9-18 [facility] Calcium [Mass/Vol] 10.3 mg/dL High 8.5-10.2 [facility] Chloride [Moles/Vol] 96 mmol/L Low 97-105 [facility] CO2 [Moles/Vol] 29 mmol/L Normal 22-30 [facility] Creatinine [Mass/Vol] 0.59 mg/dL Normal 0.58-0.96 [facility] eGFR- Amer. >60 Normal [facility] GFR/1.73 sq M predicted among non-blacks MDRD (S/P/Bld) [Vol rate/Area] mL/min/{1.73_m2} Normal [facility] Comment on above: Result Comment: eGFR [...] GFR. Glucose [Mass/Vol] 114 mg/dL High 74-99 [facility] Comment on above: Result Comment: The [employer] Diabetes Association (ADA) provides guidance for cutoff [...] Standards of Medical Care in Diabetes 2016, British Diabetes Association. Diabetes Care. 2016.39(Suppl 1). Potassium [Moles/Vol] 3.7 mmol/L Normal 3.7-5.1 [facility] Sodium [Moles/Vol] 139 mmol/L Normal 136-144 [facility] Urea nitrogen [Mass/Vol] 7 mg/dL Normal 7-21 [facility] CBC and Differentialon 06-19 Abs Baso 0.09 k/uL Normal <0.11 [facility] Abs Surry 0.61 k/uL Normal <0.87 [facility] Abs Neut 7.56 k/uL High 1.45-7.50 [facility] Absolute nRBC <0.01 Normal <0.01 [facility] Basophils/100 WBC (Bld) 0.7 % Normal [facility] DTYPE Auto Diff Normal [facility] Eosinophils (Bld) [#/Vol] 0.25 10*3/uL Normal <0.46 [facility] Eosinophils/100 WBC (Bld) 1.9 % Normal [facility] Erythrocyte distribution width (RBC) [Ratio] 12.0 % Normal 11.5-15.0 [facility] Hematocrit (Bld) [Volume fraction] 52.6 % High 36.0-46.0 [facility] Hemoglobin (Bld) [Mass/Vol] 18.0 g/dL High 11.5-15.5 [facility] Lymphocytes (Bld) [#/Vol] 4.67 10*3/uL High 1.00-4.00 [facility] Lymphocytes/100 WBC (Bld) 35.4 % Normal [facility] MCH (RBC) [Entitic mass] 30.0 pG Normal 26.0-34.0 [facility] MCHC (RBC) [Mass/Vol] 34.2 g/dL Normal 30.5-36.0 [facility] MCV (RBC) [Entitic vol] 87.7 fL Normal 80.0-100.0 [facility] Monocytes/100 WBC (Bld) 4.6 % Normal [facility] Neutrophils/100 WBC (Bld) 57.4 % [facility] NRBCs 0.0 /100 WBC Normal 0 [facility] Platelet mean volume (Bld) [Entitic vol] 10.1 fL Normal 9.0-12.7 [facility] Platelets (Bld) [#/Vol] 370 10*3/uL Normal 150-400 [facility] RBC (Bld) [#/Vol] 6.00 10*6/uL High 3.90-5.20 [facility] WBC (Bld) [#/Vol] 13.18 10*3/uL High 3.70-11.00 [facility] ED NOTEon 06-19-2019 ED NOTE HNO ID: [id number] Author: Yuki Mckenzie) EVARISTO Cruz Service: ? Author Type: Registered Nurse Type: ED Notes Filed: 06/20/2019 3:27 AM Note Text: Patient has requested valium, she says that she takes it at home. Biago updated. [facility] ED NOTE HNO ID: [id number] Author: Yuki Mckenzie) EVARISTO Cruz Service: ? Author Type: Registered Nurse Type: ED Notes Filed: 06/20/2019 3:27 AM Note Text: Patient is complaining of nausea. She is requesting her saboxon as well and Biago was updated on request. [facility] ED NOTE HNO ID: [id number] Author: Yuki Cruz RN Service: ? Author Type: Registered Nurse Type: ED Notes Filed: 06/19/2019 7:54 PM Note Text: Said that after her surgery in 2016 her left pinky and ring finger are numb but she said lately her other fingers on that hand have been getting numb as well. [facility] ED NOTE HNO ID: [id number] Author: Vanessa Ruiz RN Service: ? Author Type: Registered Nurse Type: ED Notes Filed: 06/19/2019 6:48 PM Note Text: Patient has chronic neck pain for three years. Saw spine doctor 06/12/2019 for the same had x rays. Denies any new injury. States pain goes into left arm. Arrived via wheelchair [facility] ED PROV NOTEon 06-19-2019 ED PROV NOTE HNO ID: [id number] Author: Tracy Arredondo Service: Emergency Medicine Author [...] light touch over bilateral lower extremities. 3/5 blower installer, bicep, tricep strength over LUE. Decreased sensation to light touch over left upper extremity in median, radial, and ulnar nerve distribution. 5/5 blower installer, bicep, tricep strength of R UE. Skin: [...] neurosurgical consult as previous notes from her correctional program specialist recommend obtaining EMG and possible further [...] a neurosurgical consult she warrants transfer to [facility] for further management of her condition. We have low suspicion for stroke at this time as pain appears to be radicular in nature and she has had worsening progression of her symptoms with documented notes from spine (Dr. Álvarez) suggesting this worsening pain and numbness. The FLY FISHING GUIDE, Talita, at [facility] recommended we obtain a CT brain and she must rule out any acute intercranial abnormality that may be contributing to the patient's symptoms. Therefore, this study was ordered and will be followed up by the night team especially if there is any acute intracranial abnormality. As long as there is no acute intracranial abnormality she will be transferred to [facility] for further evaluation and management of her condition. Patient voiced understanding was in agreement with the above plan. This patient's case was discussed with Dr. Arredondo who personally evaluated the patient supervised her care. The patient was TRANSFERRED to: [facility] Condition at time of disposition: stable SIGNATURE: NORMA Montgomery (Pa) 06/20/19 0026 Attending Note I have personally performed a face to face assessment of the patient and have reviewed the PA/LEGAL TRANSCRIPTIONIST note. My schofield findings include: History is [...] of 5 strength left upper extremities in blower installer strength as well as biceps and triceps [...] worsening neck pain we will place her [facility] observation for cardiac rule out as well [...] and requested by the observation provider at [facility] as they were concerned about stroke. However I doubt this and did not feel this was necessary however it is currently pending and patient will be transferred to [facility] if this is unremarkable. Signature: Tracy Arredondo DO Date: 06/20/2019 Time: 12:26 AM Tracy Arredondo 06/20/19 0033 Normal [facility] Magnesiumon 06-19-2019 Magnesium [Mass/Vol] 2.0 mg/dL Normal 1.7-2.3 [facility] Troponin Ton 06-19-2019 Troponin T.cardiac [Mass/Vol] ug/L Normal 0.000-0.02 9 [facility] CNOVon 06-12-2019 CNOV Office Visit (SPNMMN ) ----- MORALES LEE ([id number]) 1975 F Date Time Provider Department 06/12/19 8:00 AM DIXIE TEE [facility] During your visit today, we recorded the [...] file Gets together: Not on file Attends quaker service: Not on file Active member of [...] [Z98.890] Order(s):PATIENT PLACED ON SPINE CARE PATH [0152556] Order #: [id number]: 1 XR SCOLIOSIS PA STAND/LAT 2V [[id number]] Order #: [id number] FUTURE EMG(NEURO/NI) [[id number]] Order #: [id number]: 1 FUTURE CONSULT TO SPINE SURGERY [[id number]] Order #: [id number]: 1 FUTURE Prescriptions as of 06/12/2019 Sig: [...] Talita Bone Ma 06/12/2019 8:07 AM >> TALITA BONE MA Jun 12, 2019 8:07 AM Not taking ZONISAMIDE 100 MG CAPSULE >> Talita Bone Ma 06/12/2019 8:08 AM >> TALITA BONE MA Jun 12, 2019 8:08 AM Not taking TOPIRAMATE 100 MG TABLET >> Talita Bone Ma 06/12/2019 8:07 AM >> TALITA BONE MA Jun 12, 2019 8:07 AM Not [...] Status:Closed by DIXIE TEE MD on 06/12/19 [facility] PROGRESSon 06-12-2019 PROGRESS HNO ID: [id number] Author: Zoey Aponte (Rt) Robert Trejo Service: Radiology Author Type: Moisture Tester Type: Progress Notes Filed: 06/12/2019 10:10 AM [...] RT Daxa June 12, 2019 10:09 AM [facility] PROGRESS HNO ID: [id number] Author: Dixie Tee Service: ? Author Type: [...] file Gets together: Not on file Attends quaker service: Not on file Active member of [...] June 12, 2019 TIME: 8:12 AM Normal [facility] XR SCOLIOSIS 2V PA STAND/LAT [...] changes and multilevel compression deformities as described. Supervisor Furnace Room: PSCB Transcribe Date/Time: Jun 12 2019 4:36P Dictated by : CAROLINA MOJICA MD This examination was interpreted and the report reviewed and electronically signed by: CAROLINA MOJICA MD on Jun 12 2019 4:39PM EST [id number] Normal [facility] PROGRESSon 05-14-2019 PROGRESS HNO ID: [id number] Author: Laury Levin Service: ? Author Type: Physician Orthopedics Nurse Type: Progress Notes Filed: 05/14/2019 1:26 PM Note Text: Patient reports difficulty walking, using the hands and ring finger and pinky finger on left hand numb. Has tried NSAIDS, muscle relaxants. Imaging reports describe chronic T12 compression fracture. Previous C6-7 fusion without any mentioned neural compression. Will have patient scheduled with [facility] for work up. May need EMG to rule out cubital tunnel syndrome. Normal [facility] PROGRESSon 05-09-2019 PROGRESS HNO ID: [id number] Author: Kathia Kelly Service: ? Author Type: ? Type: Progress Notes Filed: 05/14/2019 1:26 PM Note Text: Patient name: Morales Lee Are you being referred by a [place] for Spine Health Provider or Pain Management Provider at [facility]? No If answer is YES please schedule directly with surgeon, triage does not need to be completed. Is this a self-referral No If not, who is the Referring Provider: Dr. Hendricks/ [facility] MRI/CT/myelogram within 12 months: Yes If No , please refer to medical spine or PCP to complete above imaging, triage does not need to be completed Imaging viewable in Epic: No If not, please provide [phone] to fax in imaging reports for review. [...] will fax imaging report and op notes. [phone] Normal [facility] CT-CT C-SPINE WO CON IMPORTo n 02-13-2019 CT-CT C-SPINE WO CON IMPORT Images were obtained outside of [facility] [id number] Normal [facility] CT-CT L-SPINE WO CON IMPORTo n 02-13-2019 CT-CT L-SPINE WO CON IMPORT Images were obtained outside of [facility] [id number] Normal [facility] Vital Signs Date Time Vital Sign Value Performing Clinician Facility 10-01-2024 16:15-0500 Diastolic blood pressure 79 mm[Hg] Greyson Robertson DO [facility] 10-01-2024 16:15-0500 Heart rate 68 /min Greyson Robertson DO [facility] 10-01-2024 16:15-0500 Respiratory rate 14 /min Greyson Robertson DO [facility] 10-01-2024 16:15-0500 SaO2% (BldA) [Mass fraction] 96 % Gryeson Robertson DO [facility] 10-01-2024 16:15-0500 Systolic blood pressure 120 mm[Hg] Greyson Robertson DO [facility] 10-01-2024 08:16-0500 Body temperature 98.01 [degF] Greyson Robertson DO [facility] 10-01-2024 00:23-0500 Body height 152.4 cm Greyson Robertson DO [facility] 10-01-2024 00:23-0500 Body mass index (BMI) [Ratio] 37.89 kg/m2 Greyson Robertson DO Work Phone: [employer] 10-01-2024 00:23-0500 Body weight 88 kg Greyson Marcelo [place] Work Phone: [facility] 05-14-2024 09:48-0400 Body height 157.5 cm Genny Orosco PROFESSOR OF FINANCE Work Phone: [facility] 05-14-2024 09:48-0400 Body mass index (BMI) [Ratio] 34.75 kg/m2 Genny Orosco PROFESSOR OF FINANCE Work Phone: [facility] 05-14-2024 09:48-0400 Body temperature 96.69 [degF] Genny Orosco PROFESSOR OF FINANCE Work Phone: [facility] 05-14-2024 09:48-0400 Body weight 86.18 kg Genny Orosco PROFESSOR OF FINANCE Work Phone: [facility] 05-14-2024 09:48-0400 Diastolic blood pressure 54 mm[Hg] Genny Orosco PROFESSOR OF FINANCE Work Phone: [facility] 05-14-2024 09:48-0400 Heart rate 72 /min Genny Orosco PROFESSOR OF FINANCE Work Phone: [facility] 05-14-2024 09:48-0400 Systolic blood pressure 104 mm[Hg] Genny Orosco PROFESSOR OF FINANCE Work Phone: [facility] 06-07-2022 12:48-0400 Diastolic blood pressure 83 mm[Hg] No Pcp Required [facility] 06-07-2022 12:48-0400 Heart rate 67 /min No Pcp Required [facility] 06-07-2022 12:48-0400 Respiratory rate 16 /min No Pcp Required [facility] 06-07-2022 12:48-0400 SaO2% (BldA) [Mass fraction] 96 % No Pcp Required [facility] 06-07-2022 12:48-0400 Systolic blood pressure 148 mm[Hg] No Pcp Required [facility] 01-06-2022 10:51-0400 Blood Pressure Location NATALIA MANNING [facility] 01-06-2022 10:51-0400 Diastolic blood pressure 86 mm[Hg] NATALIA MANNING [facility] 01-06-2022 10:51-0400 Heart rate 86 /min NATALIA MANNING [facility] 01-06-2022 10:51-0400 Respiratory rate 16 /min NATALIA MANNING [facility] 01-06-2022 10:51-0400 Systolic blood pressure 132 mm[Hg] NATALIA MANNING [facility] 09-08-2021 14:15-0500 Body height 149.86 cm No PCP None [facility]- Ah [facility]ja Work Phone: 09-08-2021 14:15-0500 Body mass index (BMI) [Ratio] 36.96 kg/m2 No PCP None ZY-Mypgtjkevufp-Ux uja Work Phone: 09-08-2021 14:15-0500 Body surface area Derived from formula 1.78 m2 No PCP None YB-Bimkxwqimfhp-Yz uja Work Phone: 09-08-2021 14:15-0500 Body weight 83.01 kg No PCP None [facility] Work Phone: 09-08-2021 14:15-0500 Diastolic blood pressure 68 mm[Hg] No PCP None IM-Wvndmlzhvqsl-Dy uja Work Phone: 09-08-2021 14:15-0500 Heart rate 96 /min No PCP None [facility] Work Phone: 09-08-2021 14:15-0500 Respiratory rate 16 /min No PCP None [facility] -[facility] Work Phone: 09-08-2021 14:15-0500 Systolic blood pressure 115 mm[Hg] No PCP None WM-Makgfhzhvatm-Kn uja Work Phone: 09-08-2021 14:15-0500 0 1 No PCP None [facility] Work Phone: Comment on above: [facility] 01-01-2021 16:46-0400 Heart rate 111 /min No Pcp Required [facility] 01-01-2021 16:46-0400 SaO2% (BldA) [Mass fraction] 95 % No Pcp Required [facility] 01-01-2021 14:00-0400 Body temperature 96.8 [degF] No Pcp Required [facility] 01-01-2021 14:00-0400 Diastolic blood pressure 77 mm[Hg] No Pcp Required [facility] 01-01-2021 14:00-0400 Respiratory rate 18 /min No Pcp Required [facility] 01-01-2021 14:00-0400 Systolic blood pressure 114 mm[Hg] No Pcp Required [facility] Encounters Encounter Date Encounter Type Care Provider Facility Start: 09-30-2024 End: 10-01-2024 ambulatory [facility] Start: 09-30-2024 End: 10-01-2024 Emergency department patient visit Greyson Robertson DO Work Phone: [facility] Comment on above: Generalized weakness (Primary Dx); Chronic bilateral low back pain, unspecified whether sciatica present; Chronic thoracic back pain, unspecified back pain laterality; Encounter for screening involving social determinants of health (SDoH) Start: 09-01-2024 End: 09-01-2024 ambulatory Mendosa Delfinoulisesscot Facility:[facility] Start: 09-01-2024 Encounter for other preprocedural examination Shaikh Micah [facility] Start: 09-01-2024 End: 09-04-2024 Clinisync Result Encounter Generic External Data Provider [facility] External Department Unsolicited Start: 09-01-2024 End: 09-03-2024 External Result Encounter Shaikh Micah HARKINS Work Phone: [facility] External Department Unsolicited Start: 09-01-2024 End: 09-04-2024 External Result Encounter Shaikh Micah HARKINS Work Phone: [facility] External Department Unsolicited Start: 08-26-2024 End: [...] Start: 05-14-2024 End: 05-14-2024 Bamboo flowsheet Genny Barrosopatrick PROFESSOR OF FINANCE Work Phone: [facility] Start: 05-14-2024 End: 05-22-2024 Clinisync Result Encounter Genny Orosco PROFESSOR OF FINANCE Work Phone: [facility] External Department Unsolicited Start: 05-14-2024 End: 05-22-2024 Clinisync Result Encounter Genny Orosco PROFESSOR OF FINANCE Work Phone: [facility] External Department Unsolicited Start: 05-14-2024 End: 05-14-2024 ambulatory GENNY OROSCO Not Available Start: 05-14-2024 End: 05-14-2024 Office outpatient visit 15 minutes Genny Arizak PROFESSOR OF FINANCE Work Phone: [facility] Comment on [...] 03-27-2024 End: 03-31-2024 Pre-admission assessment LEX FREDERICK [facility] Start: 03-26-2024 End: 04-07-2024 Pre-admission assessment LEX FREDERICK [facility] Start: 02-13-2024 End: 02-13-2024 ambulatory SHAIKH [...] encounter procedure Danya Bingham [facility] Start: 11-22-2022 ambulatory MENDOSA H FAWWAD Facilit y:[facility] Start: 11-09-2022 End: 11-09-[address] DEVANTE ELIZONDO . Facility:[facility] Start: 10-15-2022 End: 10-15-2022 ambulatory KYRA SILVA . Facility:[facility] Start: 09-24-2022 End: 09-24-2022 Patient encounter procedure Danya Bingham [facility] Start: 09-01-2022 Encounter for preprocedural laboratory examination DANYA BINGHAM . [facility] Start: 08-25-2022 End: 08-25-2022 ambulatory MENDOSA H FAWWAD Facility:[facility] Start: 08-24-2022 End: 08-25-2022 ambulatory MENDOSA H FAWWAD Facility:[facility] Start: 08-24-2022 End: 08-25-2022 Encounter for preprocedural laboratory examination MENDOSA H FAWWAD Facility:[facility] Start: 08-21-2022 ambulatory MENDOSA H FAWWAD Facilit y:[facility] Start: 07-16-2022 End: 07-16-2022 Patient encounter procedure Danya Bingham [facility] Start: 06-06-2022 End: 06-07-2022 Emergency department patient visit Yony Saulx [facility] Blue 45 Start: 05-31-2022 End: 05-31-[address] MICHAEL SORIA . Facility:[facility] Start: 05-19-2022 End: 05-19-2022 Off-Site Danya Bingham [facility] Start: 05-07-2022 End: 05-07-2022 ambulatory SHAIKH [...] [facility] Start: 02-04-2022 End: 02-04-2022 Off-Site Danya Binghma [facility] Start: 01-11-2022 Chart Update No PCP None [facility] [place] Work Phone: Start: 01-11-2022 End: 01-11-2022 Patient encounter procedure Danya Bingham [facility] Start: 01-07-2022 AUDIT No PCP None [facility]uro[facility] [place] [address] Work Phone: Start: 01-06-2022 End: 01-06-2022 Patient encounter procedure NATALIA MANNING [facility] Start: 10-13-2021 AUDIT No [facility]CP [facility]: Start: 09-29-2021 AUDIT No PCP None MG-Gastroe nterology-[facility] [place] [facility] I Work Phone: Start: 09-15-2021 End: 10-02-2021 Evaluation and management of inpatient Dr. LEX FREDERICK Facility:[facility] Start: 09-09-2021 AUDIT No PCP None [facility]-Neurosu rgery-[facility] Work Phone: Start: 09-08-2021 Office outpatient vi sit 40 minutes No PCP None ZA-Ztxnrhpaurgm-Bhaar Work Phone: Start: 05-05-2021 Postop follow up vis it related to original px No PCP None RH-Egtvepawaias-[facility] Work Phone: Start: 12-26-2020 End: 01-01-2021 Evaluation and management of inpatient Lex Frederick [facility] Kaley [id number] Rm [id number] Preoperative state No PCP None [facility]s [facility] Work Phone: Procedures Date Procedure Procedure Detail Performing Clinician Start: 10-01-2024 TROP I, HIGH SENSITI VITY 1 HOUR Greyson Robertson DO Work Phone: Start: 10-01-2024 Urnls dip stick/tabl et rgnt auto w/o microscopy Greyson Robertson DO Work Phone: Start: 10-01-2024 Radiologic exam ches t single view Greyson Robertson DO Work Phone: Start: 10-01-2024 End: 10-01-2024 Ct lumbar spine w/o contrast material Greyson Robertson DO Work Phone: Start: 10-01-2024 SARS/FLU A+B/RSV BY NAAT/MOLECULAR (M4RT COLLECTION TUBE) Greyson Robertson DO Work Phone: Start: 10-01-2024 Comprehensive metabo lic panel Greyson Robertson DO Work Phone: Start: 09-01-2024 Culture bacterial quanttative colony count urine Shaikh Micah HARKINS Work Phone: Start: 09-01-2024 BLOOD CULTURE 2 Generic External Data Provider Start: 09-01-2024 BLOOD CULTURE 1 Generic External Data Provider Start: 08-26-2024 BLOOD CULTURE 1 Generic External Data Provider Start: 08-26-2024 BLOOD CULTURE 2 Generic External Data Provider Start: 07-12-2024 Bacteria identified in Urine by Culture Generic External Data Provider Start: 05-18-2024 Drug test prsmv read direct optical obs pr date Genny Cliftontrick PROFESSOR OF FINANCE Work Phone: Start: 05-14-2024 COMPLIANCE DRUG ANAL YSIS, UR Genny Orosco PROFESSOR OF FINANCE Work Phone: Start: 09-21-[address] EFRAIN FREDERICK Comment on above: Performed By: #### A FPA3 #### [facility] [address] [place] [id number] Start: 09-21-[address] EFRAIN FREDERICK Comment on above: Order Comment: CUADRA D EVARISTO ESPINO, 09/21/2021 05:08TEST TYPE + SCREEN WAS CANCELLED, 09/21/2021 05:06 NO PHLEB ID ON TUBE. Result Comment: CALL ED EVARISTO ESPINO, 09/21/2021 05:08 Performed By: #### A FPA3 #### [facility] [address] [place] [id number] Start: 09-17-[address] EFRAIN FREDERICK Comment on above: Performed By: #### T +S #### [facility] [address] [place] [address] Start: 12-27-2020 End: 12-28-2020 Release Blood Product-Packed [...] procedure 06/13/2024 9:20 AM EDT Office Visit [facility] [address] [place] [address] Lian Greer, FINANCIAL SYSTEMS ADMINISTRATOR-FLY FISHING GUIDE [address] [place] [address] [facility] Start: 05-14-2024 End: 05-14-2024 Patient encounter procedure 05/14/2024 9:30 AM EDT Office Visit [facility] [address] [place] [address] Genny Orosco NP [address] [place] [address] [facility] Start: 05-06-2024 Influenza vaccination [facility] Start: 10-17-2023 End: 10-17-2023 Patient encounter procedure 10/17/2023 6:30 PM EST Office Visit [facility] [address] [place] [address] Shaikh Obrien MD [address] [place] [address] [facility] Start: 2023 Administration of varicella zoster vaccine Zoster (Shingles) Vaccine (1 of 2) [facility] Start: 05-06-2023 Influenza vaccination Influenza Vacc ine (#1) [facility] Start: 11-03-2021 POV, Provider: Lex Frederick, Status: Pen, Time: 2:00 PM POV, Provider: Lex Frederick, Status: Pen, Time: 2:00 PM WX-Uxipyfhqgcqmgcbk-W [facility] Work Phone: Start: 10-07-2021 Admission to [facility] RNVISIT, Provider: NURSE VISIT ASHLEY 5TH,MGNEUROSURGERY, Status: Pen, Time: 10:15 AM QH-Zyochogfuwjcezir-T [place] Work Phone: Start: 09-18-2021 [facility], Provider: Lex Frederick, Status: Pen, Time: 8:00 AM [facility], Provider: Lex Frederick, Status: Pen, Time: 8:00 AM LF-Zbfjpxmranvh-Eiyze Work Phone: Start: 01-08-2021 Patient encounter procedure Neurosurgery Miguel Start: 12-31-2020 End: 01-01-2022 [facility] Comment on above: please place at beds geraldine for drain removal Start: 12-26-2020 End: 12-27-2021 Naloxone Injectable 0.4 mg IntraVenous Push Once ; (NARCAN)DOSE = 0.2 mg IntraVenous Push Once, PRN patient is unarousable, and respiratory rate lessClinician Notes: HOLD GRADUATE TEACHING ASSOCIATE Infusion and notify H.O. immediately Start: 26-Dec-2020 End: 26-Dec-2021 Ordered: 26-Dec-2020 Nabil Awan Intent Comments: HOLD GRADUATE TEACHING ASSOCIATE Infusion and notify H.O. immediately [facility] Comment on above: HOLD GRADUATE TEACHING ASSOCIATE Infusion an d notify H.O. immediately Start: 2013 Screening for malign ant neoplasm of breast Mammogram [facility] Start: 2003 Screening for malign ant neoplasm of cervix [facility] Start: 1994 Screening for malign ant neoplasm of cervix Pap Smear [facility] Start: 1991 Adult BMI Screening Adult BMI Screen ing [facility] Start: 1985 Depression Screening Depression Scre ening [facility] Start: 1985 Tobacco Screening Tobacco Screening [facility] Start: 1973 Screening for malign ant neoplasm of colon [facility] Bacteria identified in Urine by Culture URINE CULTURE, ROUTINE Lab Routine 07/12/2024 2:30 PM EST [facility] Bacteria identified in Urine by Culture Urine culture Microbiology Routine 09/01/2024 5:30 PM EST [facility] Work Phone: End: 09-30-2024 Bacteria identified in Urine by Culture [facility] Work Phone: Comment on above: STAT for 1 Occurrenc es starting 09/30/2024 until 09/30/2024 BLOOD CULTURE 1 BLOOD CULTURE 1 Lab Routine 08/26/2024 8:29 AM EST [facility] BLOOD CULTURE 1 BLOOD CULTURE 1 Lab Routine 09/01/2024 6:39 AM EST [facility] BLOOD CULTURE 2 BLOOD CULTURE 2 Lab Routine 08/26/2024 8:25 AM EST [facility] BLOOD CULTURE 2 BLOOD CULTURE 2 Lab Routine 09/01/2024 6:45 AM EST [facility] Immunizations Immunization Date Immunization Notes Care Provider Delfino chu 02-22-2020 tetanus toxoid, redu luis diphtheria toxoid, and acellular pertussis vaccine, adsorbed Danyamicaela Bingham [facility] 12-05-2018 hepatitis A vaccine, adult dosage Danya Lujacque [facility] Payers Date Payer Category Payer Self-pay 2021 [facility] [id number] 2012 [facility] [employer] Managed [employer] - PPO [employer] [id number] 2012 Unknown 1973 Unknown [id number] 2.16.840.1.055059.3.579. 2.356 1973 Unknown [id number] 2.16.840.1.160986.3.579. 2.356 1973 Unknown [id number] 2.16.840.1.844515.3.579. 2.593 1973 Unknown [id number] 2.16.840.1.836077.3.579. 2.593 1973 Unknown [id number] 2.16.840.1.994222.3.579. 2.593 1973 Unknown [id number] 2.16.840.1.384195.3.579. 2.593 1973 Unknown [id number] 2.16.840.1.372736.3.579. 2.593 1973 Unknown [id number] 2.16.840.1.887739.3.579. 2.593 1973 Unknown [id number] 2.16.840.1.449177.3.579. 2.593 1973 Unknown [id number] 2.16.840.1.011882.3.579. 2.593 1973 Unknown [id number] 2.16.840.1.676420.3.579. 2.593 1973 Unknown [id number] 2.16.840.1.415856.3.579. 2.593 1973 Unknown [id number] 2.16.840.1.463526.3.579. 2.593 1973 Unknown [id number] 2.16.840.1.975026.3.579. 2.593 1973 Unknown [id number] 2.16.840.1.751795.3.579. 2.593 1973 Unknown [id number] 2.16.840.1.197917.3.579. 2.593 1973 Unknown [id number] 2.16.840.1.501388.3.579. 2.593 1973 Unknown [id number] 2.16.840.1.592097.3.579. 2.593 1973 Unknown [id number] 2.16.840.1.880915.3.579. 2.593 1973 Unknown [id number] 2.16.840.1.593074.3.579. 2.1046 1973 Unknown [id number] 2.16.840.1.060584.3.579. 2.727 1973 Unknown [id number] 2.16.840.1.265078.3.579. 2.1259 1973 Unknown [id number] 2.16.840.1.664966.3.579. 2.1259 1973 Unknown [id number] 2.16.840.1.481778.3.579. 2.1259 1973 Unknown [id number] 2.16.840.1.095335.3.579. 2.1286 1959 Unknown [id number] Unknown [id number] 2.16.840.1.373766.3.579. 2.531 Social History Date Type Detail Facility [facility] Tobacco smoking consumption unknown [facility] Start: 10-16-2020 End: 08-01-2023 History of drug use History of drug use AE-Pvskvsydfvgd-LRWN C Work Phone: Start: 01-05-2016 End: 10-01-2024 Tobacco smoking status Smokes tobacco daily (finding) [facility] Comment on above: 1ppd 1ppd Start: 10-16-2020 End: 08-08-2023 Sex Assigned At Female [facility] History of tobacco use Cigarette Smoker [facility] Start: 08-08-2023 End: 10-01-2024 Alcohol intake Lifetime non-drinker (finding) [facility] Start: 1973 Sex Assigned At Not on file N [facility] Childcare Unknown [facility] History of tobacco use Passive smoker [facility] Start: 10-01-2024 Tobacco use and exposure Smokeless tobacco non-user [facility] Start: 04-10-2015 Sex Female (finding) [facility] Medical Equipment Procedure Code Equipment Code Equipment Origin al Text Equipment Identifier Dates 2 EA, SubLingual , Daily, Refill(s) 0 Start: 01-05-2016 2 EA, SubLingual , Daily, Refill(s) 0 Start: 01-05-2016 2 EA, SubLingual , Daily, Refill(s) 0 Start: 01-05-2016 Functional Status Date Assessment Result Facility 11-26-2022 Functional Status N/A [facility] 07-16-2022 Functional Status N/A [facility] Functional observable [facility] Mental Status Date Assessment Result Facility 12-29-2020 Cognitive functi ons [id number] [facility] Clinical Notes 12-26-2020 to 10-01-2024 Dudley Martinez MD - 10/01/2024 5:06 PM Gerson Martinez MD - 10/01/2024 11:30 AM Gerson Martinez MD - 10/01/2024 11:30 AM Ariane Balbuena RN - 10/01/2024 12:24 AM EST Note Date & Type Note Facility 10-01-2024 Hospital course Narrative Discharge Summary Patient ID: Morales Lee Acct: [id number] Patient's PCP: NO PCP, NO PCP Admit Date: 09/30/2024 Discharge Date: Admitting Physician: Beckie Loyd MD Discharge Physician: Dudley Martinez MD Discharge Diagnoses: Primary Problem Generalized weakness Principal Problem: Generalized weakness Active Problems: Ambulatory dysfunction Back pain, chronic Incomplete emptying of bladder Moderate episode of recurrent major depressive disorder ([facility]) Past Medical History: Diagnosis Date Hypertension Injury of back Paraphasia The patient was seen and examined on day of discharge and was deemed stable for discharge. Code Status: Full Code Hospital Course: H&P Reviewed. Morales Lee is a 49 y.o. female who presents with Back Pain Patient was brought into ER via EMS from home. Patient does history of lower back pain patient did have a surgery in the past and ended up having bilateral lower leg weakness and has been bed-bound at baseline, since surgery. Patient does have social issues adult protective Services has been involved. Patient denies any suicidal ideation. Patient says she is frustrated with her medical issues and not able to find help due to her insurance issues she wants to be in long-term care facility with assistance but insurance does not cover it. Patient's neurosurgeon has ordered MRI of her lumbar spine ordered still pending patient says she can not lay flat and she need to get it done they can do it planning to get it scheduled. Advised patient to follow with PCP for chronic pain anxiety and depression issues. Today Patient was seen and examined at bedside today. Hemodynamically stable. No chest pain, shortness of breath, fever, chills, nausea, vomiting, palpitations, or abdominal pain reported. No events reported overnight. REVIEWED ALL 10 SYSTEMS AND ARE NEGATIVE EXCEPT NOTED Review of Systems Consults: IP CONSULT TO SOCIAL WORK IP CONSULT TO PSYCHIATRY Procedures: @PROCEDURE@ Exam: BP 120/79 Pulse 68 Temp 36.7 C (98 F) (Oral) Resp 14 Ht 152.4 cm (5') Wt 88 kg (194 lb) SpO2 96% BMI 37.89 kg/m Physical Exam Labs: Results from last 7 days Lab Units 10/01/24 0003 POTASSIUM mmol/L 3.4* CHLORIDE mmol/L 100 CO2 mmol/L 26 BUN mg/dL 8 CREATININE mg/dL 0.81 CALCIUM mg/dL 9.8 Results from last 7 days Lab Units 10/01/24 0003 WBC X10E9/L 12.9* HEMOGLOBIN g/dL 16.6* HEMATOCRIT % 47.5* PLATELETS X10E9/L 296 Results from last 7 days Lab Units 10/01/24 0003 MAGNESIUM mg/dL 2.0 CT thoracic spine without contrast Addendum Date: 10/01/2024 *ADDENDUM*ADDENDUM: Fusion of the thoracolumbar spine is seen extending to S1 on the dedicated CT of the lumbar spine also performed on 10/01/2024. Impression: See above. Finalized by Balbir Finney MD on 10/01/2024 1:05 AM Result Date: 10/01/2024 EXAM: CT THORACIC SPINE WITHOUT CONTRAST CLINICAL INFORMATION: Mid-back pain; Worsening mid back pain, reports chronic history of issues with the back, worsening from baseline, evaluation for acute changes/abnormalities. TECHNIQUE: CT thoracic spine performed without contrast with axial, coronal and sagittal images. Automated exposure control utilized. COMPARISON: CT myelogram dated 08/18/2015, CT of the lumbar spine dated 10/01/2024 FINDINGS: Stable appearance of a chronic moderate T12 compression fracture with mild 0.4 cm dorsal retropulsion. Stable appearance of chronic mild compression of a superior endplates of the adjacent lung, L2, and L3 vertebral bodies. There are postsurgical changes compatible with interval extensive postsurgical changes of the thoracic and lumbar spine status post multilevel laminectomies and posterior spinal fusion spanning T4-L2. There is no convincing evidence for hardware complications or failure. There is no evidence for a screw fracture. There is no significant loss of the vertebral body heights. There is no evidence for an acute displaced fracture. There is incidental visualization of C5-6 anterior cervical spinal fusion. The visualized portions of the chest are unremarkable. There are changes of cholecystectomy. IMPRESSION: 1. No evidence for an acute displaced fracture in the thoracic spine. 2. Stable chronic moderate T12 compression fracture with approximately 0.4 cm minimal dorsal retropulsion flattening thecal sac. There is also incidental visualization of chronic minimal compression involving the adjacent superior endplate of L1, L2, and L3. The remaining thoracic vertebral body heights are normal. 3. Postsurgical changes compatible with interval multilevel laminectomies and posterior spinal fusion spanning T4-L2. There is no convincing radiographic evidence for hardware complications or failure. 4. Incidental visualization of C5-6 anterior cervical spinal fusion. All CT scans at this facility use dose modulation, iterative reconstruction, and/or weight based dosing when appropriate to reduce radiation dose to as low as reasonably achievable. Finalized by Balbir Finney MD on 10/01/2024 1:[address] lumbar spine without contrast Result Date: 10/01/2024 EXAM: CT SCAN OF THE LUMBAR SPINE WITHOUT CONTRAST CLINICAL INFORMATION: Low back pain, symptoms persist with > 6 wks treatment; Patient reports chronic history of back pain, worsening from baseline, states previous surgical interventions, paraplegic at baseline/Alvares catheter. TECHNIQUE: CT lumbar spine performed without contrast with axial, coronal and sagittal images. Automated exposure control utilized. COMPARISON: CT dated 08/18/2015 FINDINGS: The lumbar spine maintains a normal lordotic curvature. There is redemonstration of a chronic moderate T12 compression fracture with minimal 0.4 cm dorsal retropulsion barely flattening the ventral aspect of the thecal sac. There is chronic minimal compression involving the superior endplate of L1, L2, and L3. There is no evidence for an acute displaced fracture. There are pulsatile changes compatible with interval extensive thoracolumbar spinal fusion. Posterior spinal fusion is seen extending from T4 on the CT of the thoracic spine to L5. There is no evidence for hardware complications or failure. There is no evidence for a screw fracture. There is chronic minimal degenerative retrolisthesis of L4 on L5 with a slight disc bulge and endplate osteophyte complex. There is no significant loss of the disc space heights in the lumbar spine. The limited visualized abdominal contents and a straight changes of cholelithiasis. The urinary catheter is present. IMPRESSION: 1. No evidence for an acute displaced fracture of the lumbar spine. 2. Stable chronic moderate T12 compression fracture with minimal 0.4 cm dorsal retropulsion barely flattening thecal sac. Stable chronic minimal compression involving superior endplate of L1-L3. 3. Extensive interval postsurgical changes of the thoracolumbar spine status post posterior spinal fusion extending to S1. There is no convincing radiographic evidence for hardware complications or failure. All CT scans at this facility use dose modulation, iterative reconstruction, and/or weight based dosing when appropriate to reduce radiation dose to as low as reasonably achievable. Finalized by Balbir Finney MD on 10/01/2024 1:05 AM X-ray chest 1 view Result Date: 10/01/2024 HISTORY: Chest pain COMPARISON: Chest x-ray 10/25/2014 FINDINGS: AP semiupright view of the chest was performed. Cardiac silhouette is within normal limits. No significant airspace consolidation or vascular congestion. No pleural effusion or pneumothorax. Intact cervical and thoracic fusion hardware. IMPRESSION: * No acute abnormality. Finalized by Sanchez Velazquez MD on 10/01/2024 1:04 AM Troponin I BNP Disposition: home Discharged Condition: stable Follow Up: with PCP in one week Discharge Medications: Medication List START taking these medications Instructions Last Dose Given Next Dose Due fluconazole 100 mg tablet Commonly known as: DIFLUCAN Take 1 tablet (100 mg total) by mouth in the morning for 3 days. potassium chloride 20 MEQ CR tablet Commonly known as: KLOR-CON M 20 Take 1 tablet (20 mEq total) by mouth in the morning for 7 days. sulfamethoxazole-trimethoprim 800-160 mg per tablet Commonly known as: BACTRIM DS Take 1 tablet by mouth in the morning and 1 tablet before bedtime. Do all this for 7 days. CONTINUE taking these medications Instructions Last Dose Given Next Dose Due diclofenac sodium 3 % gel Commonly known as: SOLARAZE Apply 1 application topically 3 (three) times a day. hydroCHLOROthiazide 12.5 mg capsule Commonly known as: MICROZIDE Take 12.5 mg by mouth daily. MIRALAX 17 gram packet Generic drug: polyethylene glycol Take 17 g by mouth daily. NEURONTIN 300 mg capsule Generic drug: gabapentin Take 800 mg by mouth 3 (three) times a day. SUBOXONE 8-2 mg film Generic drug: buprenorphine-naloxone Place 3 Film under the tongue daily. tiZANidine 4 mg tablet Commonly known as: ZANAFLEX Take 1 tablet (4 mg total) by mouth every 6 (six) hours as needed for muscle spasms. Where to Get Your Medications These medications were sent to [id number] [place], [place] - [address] [place] [address] fluconazole 100 mg tablet potassium chloride 20 MEQ CR tablet sulfamethoxazole-trimethoprim 800-160 mg per tablet Time Spent on discharge is 35 minutes in the examination, evaluation, counseling and review of medications and discharge plan. Copy sent to Dr. GOODSON PCP, NO PCP documented in this encounter [facility] 10-01-2024 History and physical note [facility] History and Physical Name: Morales Lee Acct: [id number] Room: 12/07 Admit Date: 09/30/2024 PCP: HAMZAH PCP, NO PCP Chief Complaint: Chief Complaint Patient presents with Back Pain History Obtained From: chart review and the patient. History of Present Illness: Morales Lee is a 49 y.o. female who presents with Back Pain Patient was brought into ER via EMS from home. Patient does history of lower back pain patient did have a surgery in the past and ended up having bilateral lower leg weakness and has been bed-bound at baseline, since surgery. Patient does have social issues adult protective Services has been involved. Patient denies any suicidal ideation. Patient says she is frustrated with her medical issues and not able to find help due to her insurance issues she wants to be in long-term care facility with assistance but insurance does not cover it. Patient's neurosurgeon has ordered MRI of her lumbar spine ordered still pending patient says she can not lay flat and she need to get it done they can do it planning to get it scheduled. Past Medical History: Past Medical History: Diagnosis Date Hypertension Injury of back Paraphasia Past Surgical History: Past Surgical History: Procedure Laterality Date APPENDECTOMY CHOLECYSTECTOMY Medications Prior to Admission: Prior to Admission medications Medication Sig Start Date End Date Taking? Authorizing Provider buprenorphine-naloxone (SUBOXONE) 8-[address] 3 Film under the tongue daily. 04/17/15 Historical Provider, diclofenac sodium (SOLARAZE) 3 % gel Apply 1 application topically 3 (three) times a day. 04/17/15 Historical Provider, gabapentin (NEURONTIN) 300 mg capsule Take 800 mg by mouth 3 (three) times a day. 04/17/15 Historical Provider, hydrochlorothiazide (MICROZIDE) 12.5 mg capsule Take 12.5 mg by mouth daily. 04/17/15 Historical Provider, polyethylene glycol (MIRALAX) 17 gram packet Take 17 g by mouth daily. 04/17/15 Historical Provider, tiZANidine (ZANAFLEX) 4 mg tablet Take 1 tablet (4 mg total) by mouth every 6 (six) hours as needed for muscle spasms. Not In System Ref Prov Allergies: Codeine, Penicillin, Phenergan plain, and Seroquel [quetiapine] Social History: Tobacco: reports that she has been smoking cigarettes. She has never used smokeless tobacco. Alcohol: reports no history of alcohol use. Drug Use: reports no history of drug use. Family History: History reviewed. No pertinent family history. Review of Systems: All 10 systems reviewed and negative except as noted Review of Systems Constitutional: Negative for activity change, appetite change and fatigue. HENT: Negative for nosebleeds, trouble swallowing and voice change. Eyes: Negative for itching. Respiratory: Negative for shortness of breath and stridor. Cardiovascular: Negative for chest pain and palpitations. Gastrointestinal: Negative for abdominal distention and abdominal pain. Endocrine: Negative for polyuria. Genitourinary: Negative for difficulty urinating and dysuria. Musculoskeletal: Positive for back pain and gait problem. Skin: Negative for color change. Allergic/Immunologic: Negative for immunocompromised state. Neurological: Positive for weakness. Negative for seizures and speech difficulty. Hematological: Negative for adenopathy. Psychiatric/Behavioral: Positive for dysphoric mood and sleep disturbance. Negative for agitation, behavioral problems, confusion, hallucinations, self-injury and suicidal ideas. The patient is nervous/anxious. Code Status: Full Code Physical Exam: Vitals: BP 101/63 Pulse 70 Temp 36.7 C (98 F) (Oral) Resp 18 Ht 152.4 cm (5') Wt 88 kg (194 lb) SpO2 95% BMI 37.89 kg/m Temp (24hrs), Av.6 C (97.8 F), Min:36.4 C (97.6 F), Max:36.7 C (98 F) Physical Exam Vitals reviewed. Constitutional: Appearance: She is well-developed. HENT: Head: Normocephalic and atraumatic. Right Ear: External ear normal. Left Ear: External ear normal. Nose: Nose normal. Mouth/Throat: Pharynx: Uvula midline. No oropharyngeal exudate. Eyes: General: Right eye: No discharge. Left eye: No discharge. Conjunctiva/sclera: Conjunctivae normal. Pupils: Pupils are equal, round, and reactive to light. Neck: Thyroid: No thyromegaly. Trachea: No tracheal deviation. Cardiovascular: Rate and Rhythm: Normal rate and regular rhythm. Heart sounds: Normal heart sounds. Pulmonary: Effort: Pulmonary effort is normal. No respiratory distress. Breath sounds: Normal breath sounds. No stridor. Chest: Chest wall: No tenderness. Abdominal: General: Bowel sounds are normal. There is no distension. Palpations: Abdomen is soft. Tenderness: There is no abdominal tenderness. There is no guarding or rebound. Musculoskeletal: General: Tenderness present. No deformity. Cervical back: Normal range of motion and neck supple. Lymphadenopathy: Cervical: No cervical adenopathy. Upper Body: Right upper body: No supraclavicular or epitrochlear adenopathy. Left upper body: No supraclavicular or epitrochlear adenopathy. Skin: General: Skin is warm and dry. Capillary Refill: Capillary refill takes less than 2 seconds. Coloration: Skin is not cyanotic. Nails: There is no clubbing. Neurological: Mental Status: She is alert. Motor: Weakness present. No abnormal muscle tone or seizure activity. Coordination: Coordination normal. Gait: Gait abnormal. Psychiatric: Attention and Perception: Attention normal. Behavior: Behavior normal. Data: Recent Results (from the past 24 hours) CBC auto differential Collection Time: 10/01/24 12:03 AM Result Value Ref Range White Blood Cells 12.9 (H) 4.0 - 11.0 X10E9/L RBC count 5.64 (H) 3.80 - 5.20 X10E12/L Hemoglobin 16.6 (H) 11.7 - 15.5 g/dL Hematocrit 47.5 (H) 35 - 47 % MCV 84 80 - 100 fL MCH 29.4 27 - 34 pg MCHC 34.9 32 - 36 g/dL RDW 18.6 (H) 11.5 - 15.0 % Platelets 296 150 - 450 X10E9/L MPV 8.2 7 - 12 fL % neutrophils 62.4 % % lymphocytes 29.6 % % monocytes 4.6 % % eosinophils 2.7 % % Basophils 0.7 % Neutrophils Absolute (A) 8.0 (H) 1.5 - 6.6 X10E9/L Lymphocytes Absolute 3.8 (H) 1.0 - 3.5 X10E9/L Monocytes Absolute 0.6 0 - 0.9 X10E9/L Eosinophils Absolute 0.3 0.0 - 0.4 X10E9/L Basophils Absolute 0.1 0.0 - 0.2 X10E9/L Comprehensive metabolic panel Collection Time: 10/01/24 12:03 AM Result Value Ref Range Sodium 136 134 - 146 mmol/L Potassium, Bld 3.4 (L) 3.5 - 5.0 mmol/L Chloride 100 98 - 109 mmol/L CO2 26 22 - 32 mmol/L Anion gap 10 5 - 15 mmol/L BUN 8 5 - 23 mg/dL Creatinine 0.81 0.40 - 1.00 mg/dL Glucose 103 (H) 65 - 99 mg/dL Calcium 9.8 8.5 - 10.5 mg/dL Total Protein 9.3 (H) 6.0 - 8.0 g/dL Albumin 5.0 3.2 - 5.3 g/dL Alkaline Phosphatase 173 (H) 39 - 130 U/L AST 38 0 - 41 U/L ALT 21 0 - 31 U/L Total bilirubin 1.2 0.3 - 1.2 mg/dL eGFR (CKD-EPI)non-race dependent 88 >59 ml/min/1.73sq.m Lipase Collection Time: 10/01/24 12:03 AM Result Value Ref Range Lipase 30 17 - 40 U/L Troponin I, High Sensitivity Collection Time: 10/01/24 12:03 AM Result Value Ref Range Troponin I, High Sensitivity <2 <16 ng/L Magnesium Collection Time: 10/01/24 12:03 AM Result Value Ref Range Magnesium 2.0 1.8 - 2.6 mg/dL Thyroid profile includes TSH FT4 Collection Time: 10/01/24 12:03 AM Result Value Ref Range TSH 3.02 0.49 - 4.67 uIU/mL T4, free 1.14 0.61 - 1.60 ng/dL SARS/FLU A+B/RSV by NAAT/Molecular (M4RT Collection Tube) Collection Time: 10/01/24 12:05 AM Result Value Ref Range FLU A PCR Negative Negative^Negative FLU B PCR Negative Negative^Negative RSV by PCR Negative Negative^Negative SARS CoV 2 BY PCR Not Detected Not Detected^Not Detected Urinalysis Collection Time: 10/01/24 1:14 AM Result Value Ref Range Color YELLOW YELLOW^YELLOW Turbidity CLEAR CLEAR^CLEAR Specific gravity <1.005 1.003 - 1.035 Nitrite Negative Negative^Negative Ph urine 6.0 5.0 - 8.5 Leukocyte esterase SMALL (A) Negative^Negative Protein Negative Negative^Negative mg/dL Glucose, Ur Negative Negative^Negative mg/dL Ketones urine Negative Negative^Negative mg/dL Urobilinogen 0.2 <1.1 eu/dL Bilirubin, urine Negative Negative^Negative Hemoglobin Trace (A) Negative^Negative WBC 2 0 - 5 /hpf RBC 1 0 - 5 /hpf Squamous epithelium 1 0 - 5 /hpf Troponin I, High Sensitivity 1 Hour Collection Time: 10/01/24 1:18 AM Result Value Ref Range 1 Hour Trop I, High Sensitivity <2 <16 ng/L All plain film images(s) ,CT, Ultrasound and MRI have been read by the radiologist. Imaging--Reviewed: CT thoracic spine without contrast Addendum Date: 10/01/2024 Addendum: *ADDENDUM*ADDENDUM: Fusion of the thoracolumbar spine is seen extending to S1 on the dedicated CT of the lumbar spine also performed on 10/01/2024. Impression: See above. Finalized by Balbir Finney MD on 10/01/2024 1:05 AM Result Date: 10/01/2024 Narrative: EXAM: CT THORACIC SPINE WITHOUT CONTRAST CLINICAL INFORMATION: Mid-back pain; Worsening mid back pain, reports chronic history of issues with the back, worsening from baseline, evaluation for acute changes/abnormalities. TECHNIQUE: CT thoracic spine performed without contrast with axial, coronal and sagittal images. Automated exposure control utilized. COMPARISON: CT myelogram dated 08/18/2015, CT of the lumbar spine dated 10/01/2024 FINDINGS: Stable appearance of a chronic moderate T12 compression fracture with mild 0.4 cm dorsal retropulsion. Stable appearance of chronic mild compression of a superior endplates of the adjacent lung, L2, and L3 vertebral bodies. There are postsurgical changes compatible with interval extensive postsurgical changes of the thoracic and lumbar spine status post multilevel laminectomies and posterior spinal fusion spanning T4-L2. There is no convincing evidence for hardware complications or failure. There is no evidence for a screw fracture. There is no significant loss of the vertebral body heights. There is no evidence for an acute displaced fracture. There is incidental visualization of C5-6 anterior cervical spinal fusion. The visualized portions of the chest are unremarkable. There are changes of cholecystectomy. IMPRESSION: 1. No evidence for an acute displaced fracture in the thoracic spine. 2. Stable chronic moderate T12 compression fracture with approximately 0.4 cm minimal dorsal retropulsion flattening thecal sac. There is also incidental visualization of chronic minimal compression involving the adjacent superior endplate of L1, L2, and L3. The remaining thoracic vertebral body heights are normal. 3. Postsurgical changes compatible with interval multilevel laminectomies and posterior spinal fusion spanning T4-L2. There is no convincing radiographic evidence for hardware complications or failure. 4. Incidental visualization of C5-6 anterior cervical spinal fusion. All CT scans at this facility use dose modulation, iterative reconstruction, and/or weight based dosing when appropriate to reduce radiation dose to as low as reasonably achievable. Finalized by Balbir Finney MD on 10/01/2024 1:[address] lumbar spine without contrast Result Date: 10/01/2024 Narrative: EXAM: CT SCAN OF THE LUMBAR SPINE WITHOUT CONTRAST CLINICAL INFORMATION: Low back pain, symptoms persist with > 6 wks treatment; Patient reports chronic history of back pain, worsening from baseline, states previous surgical interventions, paraplegic at baseline/Alvares catheter. TECHNIQUE: CT lumbar spine performed without contrast with axial, coronal and sagittal images. Automated exposure control utilized. COMPARISON: CT dated 08/18/2015 FINDINGS: The lumbar spine maintains a normal lordotic curvature. There is redemonstration of a chronic moderate T12 compression fracture with minimal 0.4 cm dorsal retropulsion barely flattening the ventral aspect of the thecal sac. There is chronic minimal compression involving the superior endplate of L1, L2, and L3. There is no evidence for an acute displaced fracture. There are pulsatile changes compatible with interval extensive thoracolumbar spinal fusion. Posterior spinal fusion is seen extending from T4 on the CT of the thoracic spine to L5. There is no evidence for hardware complications or failure. There is no evidence for a screw fracture. There is chronic minimal degenerative retrolisthesis of L4 on L5 with a slight disc bulge and endplate osteophyte complex. There is no significant loss of the disc space heights in the lumbar spine. The limited visualized abdominal contents and a straight changes of cholelithiasis. The urinary catheter is present. IMPRESSION: 1. No evidence for an acute displaced fracture of the lumbar spine. 2. Stable chronic moderate T12 compression fracture with minimal 0.4 cm dorsal retropulsion barely flattening thecal sac. Stable chronic minimal compression involving superior endplate of L1-L3. 3. Extensive interval postsurgical changes of the thoracolumbar spine status post posterior spinal fusion extending to S1. There is no convincing radiographic evidence for hardware complications or failure. All CT scans at this facility use dose modulation, iterative reconstruction, and/or weight based dosing when appropriate to reduce radiation dose to as low as reasonably achievable. Finalized by Balbir Finney MD on 10/01/2024 1:05 AM X-ray chest 1 view Result Date: 10/01/2024 Narrative: HISTORY: Chest pain COMPARISON: Chest x-ray 10/25/2014 FINDINGS: AP semiupright view of the chest was performed. Cardiac silhouette is within normal limits. No significant airspace consolidation or vascular congestion. No pleural effusion or pneumothorax. Intact cervical and thoracic fusion hardware. IMPRESSION: * No acute abnormality. Finalized by Sanchez Velazquez MD on 10/01/2024 1:04 AM Assesment: Primary Problem Generalized weakness Principal Problem: Generalized weakness Active Problems: Ambulatory dysfunction Back pain, chronic Incomplete emptying of bladder Moderate episode of recurrent major depressive disorder ([facility]) Plan: Patient is on Suboxone gabapentin DVT prophylaxis lovenox EPCs PPI PT/OT to evaluate and treat Pain Control Restart home medications Labs and imaging reviewed from last 24 hours and results explained to patient Patient denies any suicidal ideation Electronically signed by Dudley Martinez MD Copy sent to Dr. GOODSON PCP, NO PCP This note is created with the assistance of a speech recognition program. While intending to generate a document that actually reflects the content of the visit, the document can still have some errors including those of syntax and sound a like substitutions which may escape proof reading. It such instances, actual meaning can be extrapolated by contextual diversion. [facility] 10-01-2024 History and physical note [facility] History and Physical Name: oMrales Lee Acct: [id number] Room: 12/07 Admit Date: 09/30/2024 PCP: NO PCP, NO PCP Chief Complaint: Chief Complaint Patient presents with Back Pain History Obtained From: chart review and the patient. History of Present Illness: Morales Lee is a 49 y.o. female who presents with Back Pain Patient was brought into ER via EMS from home. Patient does history of lower back pain patient did have a surgery in the past and ended up having bilateral lower leg weakness and has been bed-bound at baseline, since surgery. Patient does have social issues adult protective Services has been involved. Patient denies any suicidal ideation. Patient says she is frustrated with her medical issues and not able to find help due to her insurance issues she wants to be in long-term care facility with assistance but insurance does not cover it. Patient's neurosurgeon has ordered MRI of her lumbar spine ordered still pending patient says she can not lay flat and she need to get it done they can do it planning to get it scheduled. Past Medical History: Past Medical History: Diagnosis Date Hypertension Injury of back Paraphasia Past Surgical History: Past Surgical History: Procedure Laterality Date APPENDECTOMY CHOLECYSTECTOMY Medications Prior to Admission: Prior to Admission medications Medication Sig Start Date End Date Taking? Authorizing Provider buprenorphine-naloxone (SUBOXONE) 8-[address] 3 Film under the tongue daily. 04/17/15 Historical Provider, diclofenac sodium (SOLARAZE) 3 % gel Apply 1 application topically 3 (three) times a day. 04/17/15 Historical Provider, gabapentin (NEURONTIN) 300 mg capsule Take 800 mg by mouth 3 (three) times a day. 04/17/15 Historical Provider, hydrochlorothiazide (MICROZIDE) 12.5 mg capsule Take 12.5 mg by mouth daily. 04/17/15 Historical Provider, polyethylene glycol (MIRALAX) 17 gram packet Take 17 g by mouth daily. 04/17/15 Historical Provider, tiZANidine (ZANAFLEX) 4 mg tablet Take 1 tablet (4 mg total) by mouth every 6 (six) hours as needed for muscle spasms. Not In System Ref Prov Allergies: Codeine, Penicillin, Phenergan plain, and Seroquel [quetiapine] Social History: Tobacco: reports that she has been smoking cigarettes. She has never used smokeless tobacco. Alcohol: reports no history of alcohol use. Drug Use: reports no history of drug use. Family History: History reviewed. No pertinent family history. Review of Systems: All 10 systems reviewed and negative except as noted Review of Systems Constitutional: Negative for activity change, appetite change and fatigue. HENT: Negative for nosebleeds, trouble swallowing and voice change. Eyes: Negative for itching. Respiratory: Negative for shortness of breath and stridor. Cardiovascular: Negative for chest pain and palpitations. Gastrointestinal: Negative for abdominal distention and abdominal pain. Endocrine: Negative for polyuria. Genitourinary: Negative for difficulty urinating and dysuria. Musculoskeletal: Positive for back pain and gait problem. Skin: Negative for color change. Allergic/Immunologic: Negative for immunocompromised state. Neurological: Positive for weakness. Negative for seizures and speech difficulty. Hematological: Negative for adenopathy. Psychiatric/Behavioral: Positive for dysphoric mood and sleep disturbance. Negative for agitation, behavioral problems, confusion, hallucinations, self-injury and suicidal ideas. The patient is nervous/anxious. Code Status: Full Code Physical Exam: Vitals: BP 101/63 Pulse 70 Temp 36.7 C (98 F) (Oral) Resp 18 Ht 152.4 cm (5') Wt 88 kg (194 lb) SpO2 95% BMI 37.89 kg/m Temp (24hrs), Av.6 C (97.8 F), Min:36.4 C (97.6 F), Max:36.7 C (98 F) Physical Exam Vitals reviewed. Constitutional: Appearance: She is well-developed. HENT: Head: Normocephalic and atraumatic. Right Ear: External ear normal. Left Ear: External ear normal. Nose: Nose normal. Mouth/Throat: Pharynx: Uvula midline. No oropharyngeal exudate. Eyes: General: Right eye: No discharge. Left eye: No discharge. Conjunctiva/sclera: Conjunctivae normal. Pupils: Pupils are equal, round, and reactive to light. Neck: Thyroid: No thyromegaly. Trachea: No tracheal deviation. Cardiovascular: Rate and Rhythm: Normal rate and regular rhythm. Heart sounds: Normal heart sounds. Pulmonary: Effort: Pulmonary effort is normal. No respiratory distress. Breath sounds: Normal breath sounds. No stridor. Chest: Chest wall: No tenderness. Abdominal: General: Bowel sounds are normal. There is no distension. Palpations: Abdomen is soft. Tenderness: There is no abdominal tenderness. There is no guarding or rebound. Musculoskeletal: General: Tenderness present. No deformity. Cervical back: Normal range of motion and neck supple. Lymphadenopathy: Cervical: No cervical adenopathy. Upper Body: Right upper body: No supraclavicular or epitrochlear adenopathy. Left upper body: No supraclavicular or epitrochlear adenopathy. Skin: General: Skin is warm and dry. Capillary Refill: Capillary refill takes less than 2 seconds. Coloration: Skin is not cyanotic. Nails: There is no clubbing. Neurological: Mental Status: She is alert. Motor: Weakness present. No abnormal muscle tone or seizure activity. Coordination: Coordination normal. Gait: Gait abnormal. Psychiatric: Attention and Perception: Attention normal. Behavior: Behavior normal. Data: Recent Results (from the past 24 hours) CBC auto differential Collection Time: 10/01/24 12:03 AM Result Value Ref Range White Blood Cells 12.9 (H) 4.0 - 11.0 X10E9/L RBC count 5.64 (H) 3.80 - 5.20 X10E12/L Hemoglobin 16.6 (H) 11.7 - 15.5 g/dL Hematocrit 47.5 (H) 35 - 47 % MCV 84 80 - 100 fL MCH 29.4 27 - 34 pg MCHC 34.9 32 - 36 g/dL RDW 18.6 (H) 11.5 - 15.0 % Platelets 296 150 - 450 X10E9/L MPV 8.2 7 - 12 fL % neutrophils 62.4 % % lymphocytes 29.6 % % monocytes 4.6 % % eosinophils 2.7 % % Basophils 0.7 % Neutrophils Absolute (A) 8.0 (H) 1.5 - 6.6 X10E9/L Lymphocytes Absolute 3.8 (H) 1.0 - 3.5 X10E9/L Monocytes Absolute 0.6 0 - 0.9 X10E9/L Eosinophils Absolute 0.3 0.0 - 0.4 X10E9/L Basophils Absolute 0.1 0.0 - 0.2 X10E9/L Comprehensive metabolic panel Collection Time: 10/01/24 12:03 AM Result Value Ref Range Sodium 136 134 - 146 mmol/L Potassium, Bld 3.4 (L) 3.5 - 5.0 mmol/L Chloride 100 98 - 109 mmol/L CO2 26 22 - 32 mmol/L Anion gap 10 5 - 15 mmol/L BUN 8 5 - 23 mg/dL Creatinine 0.81 0.40 - 1.00 mg/dL Glucose 103 (H) 65 - 99 mg/dL Calcium 9.8 8.5 - 10.5 mg/dL Total Protein 9.3 (H) 6.0 - 8.0 g/dL Albumin 5.0 3.2 - 5.3 g/dL Alkaline Phosphatase 173 (H) 39 - 130 U/L AST 38 0 - 41 U/L ALT 21 0 - 31 U/L Total bilirubin 1.2 0.3 - 1.2 mg/dL eGFR (CKD-EPI)non-race dependent 88 >59 ml/min/1.73sq.m Lipase Collection Time: 10/01/24 12:03 AM Result Value Ref Range Lipase 30 17 - 40 U/L Troponin I, High Sensitivity Collection Time: 10/01/24 12:03 AM Result Value Ref Range Troponin I, High Sensitivity <2 <16 ng/L Magnesium Collection Time: 10/01/24 12:03 AM Result Value Ref Range Magnesium 2.0 1.8 - 2.6 mg/dL Thyroid profile includes TSH FT4 Collection Time: 10/01/24 12:03 AM Result Value Ref Range TSH 3.02 0.49 - 4.67 uIU/mL T4, free 1.14 0.61 - 1.60 ng/dL SARS/FLU A+B/RSV by NAAT/Molecular (M4RT Collection Tube) Collection Time: 10/01/24 12:05 AM Result Value Ref Range FLU A PCR Negative Negative^Negative FLU B PCR Negative Negative^Negative RSV by PCR Negative Negative^Negative SARS CoV 2 BY PCR Not Detected Not Detected^Not Detected Urinalysis Collection Time: 10/01/24 1:14 AM Result Value Ref Range Color YELLOW YELLOW^YELLOW Turbidity CLEAR CLEAR^CLEAR Specific gravity <1.005 1.003 - 1.035 Nitrite Negative Negative^Negative Ph urine 6.0 5.0 - 8.5 Leukocyte esterase SMALL (A) Negative^Negative Protein Negative Negative^Negative mg/dL Glucose, Ur Negative Negative^Negative mg/dL Ketones urine Negative Negative^Negative mg/dL Urobilinogen 0.2 <1.1 eu/dL Bilirubin, urine Negative Negative^Negative Hemoglobin Trace (A) Negative^Negative WBC 2 0 - 5 /hpf RBC 1 0 - 5 /hpf Squamous epithelium 1 0 - 5 /hpf Troponin I, High Sensitivity 1 Hour Collection Time: 10/01/24 1:18 AM Result Value Ref Range 1 Hour Trop I, High Sensitivity <2 <16 ng/L All plain film images(s) ,CT, Ultrasound and MRI have been read by the radiologist. Imaging--Reviewed: CT thoracic spine without contrast Addendum Date: 10/01/2024 Addendum: *ADDENDUM*ADDENDUM: Fusion of the thoracolumbar spine is seen extending to S1 on the dedicated CT of the lumbar spine also performed on 10/01/2024. Impression: See above. Finalized by Balbir Finney MD on 10/01/2024 1:05 AM Result Date: 10/01/2024 Narrative: EXAM: CT THORACIC SPINE WITHOUT CONTRAST CLINICAL INFORMATION: Mid-back pain; Worsening mid back pain, reports chronic history of issues with the back, worsening from baseline, evaluation for acute changes/abnormalities. TECHNIQUE: CT thoracic spine performed without contrast with axial, coronal and sagittal images. Automated exposure control utilized. COMPARISON: CT myelogram dated 08/18/2015, CT of the lumbar spine dated 10/01/2024 FINDINGS: Stable appearance of a chronic moderate T12 compression fracture with mild 0.4 cm dorsal retropulsion. Stable appearance of chronic mild compression of a superior endplates of the adjacent lung, L2, and L3 vertebral bodies. There are postsurgical changes compatible with interval extensive postsurgical changes of the thoracic and lumbar spine status post multilevel laminectomies and posterior spinal fusion spanning T4-L2. There is no convincing evidence for hardware complications or failure. There is no evidence for a screw fracture. There is no significant loss of the vertebral body heights. There is no evidence for an acute displaced fracture. There is incidental visualization of C5-6 anterior cervical spinal fusion. The visualized portions of the chest are unremarkable. There are changes of cholecystectomy. IMPRESSION: 1. No evidence for an acute displaced fracture in the thoracic spine. 2. Stable chronic moderate T12 compression fracture with approximately 0.4 cm minimal dorsal retropulsion flattening thecal sac. There is also incidental visualization of chronic minimal compression involving the adjacent superior endplate of L1, L2, and L3. The remaining thoracic vertebral body heights are normal. 3. Postsurgical changes compatible with interval multilevel laminectomies and posterior spinal fusion spanning T4-L2. There is no convincing radiographic evidence for hardware complications or failure. 4. Incidental visualization of C5-6 anterior cervical spinal fusion. All CT scans at this facility use dose modulation, iterative reconstruction, and/or weight based dosing when appropriate to reduce radiation dose to as low as reasonably achievable. Finalized by Balbir Finney MD on 10/01/2024 1:[address] lumbar spine without contrast Result Date: 10/01/2024 Narrative: EXAM: CT SCAN OF THE LUMBAR SPINE WITHOUT CONTRAST CLINICAL INFORMATION: Low back pain, symptoms persist with > 6 wks treatment; Patient reports chronic history of back pain, worsening from baseline, states previous surgical interventions, paraplegic at baseline/Alvares catheter. TECHNIQUE: CT lumbar spine performed without contrast with axial, coronal and sagittal images. Automated exposure control utilized. COMPARISON: CT dated 08/18/2015 FINDINGS: The lumbar spine maintains a normal lordotic curvature. There is redemonstration of a chronic moderate T12 compression fracture with minimal 0.4 cm dorsal retropulsion barely flattening the ventral aspect of the thecal sac. There is chronic minimal compression involving the superior endplate of L1, L2, and L3. There is no evidence for an acute displaced fracture. There are pulsatile changes compatible with interval extensive thoracolumbar spinal fusion. Posterior spinal fusion is seen extending from T4 on the CT of the thoracic spine to L5. There is no evidence for hardware complications or failure. There is no evidence for a screw fracture. There is chronic minimal degenerative retrolisthesis of L4 on L5 with a slight disc bulge and endplate osteophyte complex. There is no significant loss of the disc space heights in the lumbar spine. The limited visualized abdominal contents and a straight changes of cholelithiasis. The urinary catheter is present. IMPRESSION: 1. No evidence for an acute displaced fracture of the lumbar spine. 2. Stable chronic moderate T12 compression fracture with minimal 0.4 cm dorsal retropulsion barely flattening thecal sac. Stable chronic minimal compression involving superior endplate of L1-L3. 3. Extensive interval postsurgical changes of the thoracolumbar spine status post posterior spinal fusion extending to S1. There is no convincing radiographic evidence for hardware complications or failure. All CT scans at this facility use dose modulation, iterative reconstruction, and/or weight based dosing when appropriate to reduce radiation dose to as low as reasonably achievable. Finalized by Balbir Finney MD on 10/01/2024 1:05 AM X-ray chest 1 view Result Date: 10/01/2024 Narrative: HISTORY: Chest pain COMPARISON: Chest x-ray 10/25/2014 FINDINGS: AP semiupright view of the chest was performed. Cardiac silhouette is within normal limits. No significant airspace consolidation or vascular congestion. No pleural effusion or pneumothorax. Intact cervical and thoracic fusion hardware. IMPRESSION: * No acute abnormality. Finalized by Sanchez Velazquez MD on 10/01/2024 1:04 AM Assesment: Primary Problem Generalized weakness Principal Problem: Generalized weakness Active Problems: Ambulatory dysfunction Back pain, chronic Incomplete emptying of bladder Moderate episode of recurrent major depressive disorder ([facility]) Plan: Patient is on Suboxone gabapentin DVT prophylaxis lovenox EPCs PPI PT/OT to evaluate and treat Pain Control Restart home medications Labs and imaging reviewed from last 24 hours and results explained to patient Patient denies any suicidal ideation Electronically signed by Dudley Martinez MD Copy sent to Dr. GOODSON PCP, NO PCP This note is created with the assistance of a speech recognition program. While intending to generate a document that actually reflects the content of the visit, the document can still have some errors including those of syntax and sound a like substitutions which may escape proof reading. It such instances, actual meaning can be extrapolated by contextual diversion. documented in this encounter [facility] 10-01-2024 Emergency department Triage note PT ARRIVES FROM HOME VIA EMS FOR CHRONIC BACK PAIN AND DEPRESSION [facility] 10-01-2024 Emergency department Note PT ARRIVES FROM HOME VIA EMS FOR CHRONIC BACK PAIN AND DEPRESSION documented in this encounter [facility] 06-08-2024 Miscellaneous Notes ----- Message from Eurydice sent at 06/08/2024 3:14 PM EDT ----- Contract: HUBER Lidoderm Patch from [facility], not sure if can use Contract: FOREST Patient is not a current patient of this office informed that we thang give advice without this. Will call her Flotype. No triage done Reason for Disposition Caller has cancelled the call before the first contact Protocols used: No Contact or Duplicate Contact Call-A-AH documented in this encounter [facility] 06-08-2024 Telephone encounter Note ----- Message from Eurydice sent at 06/08/2024 3:14 PM EDT ----- Contract: HUBER Lidoderm Patch from [facility], not sure if can use [facility] 06-08-2024 Telephone encounter Note Contract: HUBER Patient is not a current patient of this office informed that we thang give advice without this. Will call her insurance [employer]. No triage done [facility] 06-08-2024 Telephone encounter Note Reason for Disposition Caller has cancelled the call before the first contact Protocols used: No Contact or Duplicate Contact Call-A-AH [facility] 05-15-2024 History of Present illness Narrative Associated Problem(s): Pressure ulcer, buttock [...] States her daughter in law is an AUTO TIRE RECAPPER and helps care for her. When I discussed with patient her chronic neurological issues including spinal cord compression, stenosis and myelopathies, pt states she is no longer seeing neuro because after what the In Clifford did to me, I am not seeing [...] to Wound Clinic Rapid drug screen, urine [place] documented in this encounter [facility] 04-24-2024 Telephone encounter Note Patient would like a refill of her Valium. Was from [facility] but did not transfer to [facility]. [facility] 04-24-2024 Miscellaneous Notes Patient would like a refill of her Valium. Was from [facility] but did not transfer to [facility]. documented in this encounter [facility] 11-26-2022 Hospital Discharge instructions Patient Education 11/26/2022 08:43:35 Indwelling Urinary [...] Document Reviewed: 10/01/2017 Elsevier Patient Education 2020 [employer] Follow Up Care 10/14/2022 11:11:52 With:Zachery HARKINS, Danya Rhodes, URL, URO Address: When: Unknown [facility] 09-23-2022 Hospital Discharge instructions Patient Education 09/23/2022 13:13:56 Sacral Nerve [...] including vitamins, herbs, eye drops, creams, and lpdx-zqu-matthjy medicines. Any problems you or family members [...] provider tells you to take them. Taking psag-tdx-kxaoiyr medicines, vitamins, herbs, and supplements. General instructions [...] 08/08/2013 Document Revised: 10/08/2019 Document Reviewed: 10/08/2019 Shareablee Patient Education 2019 [employer]. Follow Up Care 08/31/2022 10:49:10 With:Zachery HARKINS, CAROLEE Anderson, URO Address: When: Unknown [facility] 07-16-2022 Hospital Discharge instructions Patient Education 07/16/2022 11:35:59 Urinary Incontinence [...] nerve stimulation). For women, using a medical scientific liaison to prevent urine leaks. This is a [...] right after experiencing incontinence. General instructions Take lmib-vyg-ejabgcn and prescription medicines only as told by [...] 09/29/2005 Document Revised: 09/01/2018 Document Reviewed: 12/01/2017 Shareablee Patient Education 2020 [employer]. Follow Up Care 06/15/2022 11:30:52 With:Zachery HARKINS, CAROLEE Anderson, URO Address: When: Unknown [facility] 02-04-2022 Hospital Discharge instructions Patient Education 02/04/2022 16:23:14 Urinary Incontinence [...] nerve stimulation). For women, using a medical scientific liaison to prevent urine leaks. This is a [...] right after experiencing incontinence. General instructions Take nkac-svv-cdembqx and prescription medicines only as told by [...] 09/29/2005 Document Revised: 09/01/2018 Document Reviewed: 12/01/2017 Shareablee Patient Education 2020 [employer]. 02/04/2022 16:23:10 Calorie Counting for Weight Loss [...] in your pocket, or use a mobile wade or website. Some programs will calculate calories [...] 08/22/2006 Document Revised: 05/11/2019 Document Reviewed: 07/22/2017 Shareablee Patient Education 2020 Room 77 Follow Up Care 02/04/2022 13:28:46 With:Danya Bingham MD, URL, URO Address: When: Unknown [facility] 01-11-2022 Evaluation + Plan note [...] and Plan Diagnosis Bowel and bladder incontinence (OWO81-HU R32, Billing Diagnosis, Medical). Incontinence without sensory awareness (VNP17-II N39.42, Working, Medical). Diagnosis Bowel and bladder incontinence (OJA78-MH R32, Billing Diagnosis, Medical). Incontinence without sensory awareness (CRM07-PV N39.42, Working, Medical). Addendum by Danya Bingham MD on January 11, 2022 10:23 EDT Post procedure diagnosis: Intrinsic sphincter deficiency, acontractile detrusor [facility]05-09-2022 Hospital Discharge instructions Patient Education 01/11/2022 [...] 01/06/2022 11:41:34 With:Danya Bingham Address: [address] [phone] Business (1) When: Unknown Comments:Call for followup appointment in 2-3 weeks With:Danya Bingham Address:Unknown When: Unknown [facility]05-04-2022 Hospital Discharge instructions Patient Education 01/06/2022 [...] clinics. Check with your local health department. [facility], where you would pay only what you can afford. To find one near you, check this website: www.[facility].org/pgdk-dj-bsua/ [facility]. These are part of a [...] information Learn more about cervical cancer from: [employer]: www.acog.org/Patients/FAQs/Cervical-Cancer [employer]: www.cancer.org/cancer/cervicalcancer/ U.S. Centers for Disease [...] 09/05/2016 Document Revised: 09/23/2018 Document Reviewed: 04/19/2017 Shareablee Patient Education 2020 Partnerpedia. Follow Up Care 11/20/2021 10:16:51 With:NATALIA MANNING PA-C, URL Address: [facility] [address] 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 Instead, bend at knees to sampler pickup objects (more content not included)...[facility]01-26-2022 NoteThis report has been cancelled.[facility]01-17-2022 NotePROCEDURE DETAILS Postoperative Diagnosis: lumbar stenosis Surgeon: Dr. Lex Frederick Resident/Fellow/Other Orthopedics Nurse: Chery Awan Procedure: posterior L4-L5 decompression posterior [...] Attestation: Note Completion: I am a:Resident/Fellow Attending RadhikaationI was present for the entire procedure Electronic Signatures: Lex Frederick) (Signed 22-Sep-2021 10:54) Authored: Post-Operative Note, Chart Review, Note Completion Co-Signer: Post-Operative Note, Chart Review, Note Completion Nabil Awan (Resident)) (Signed 21-Sep-2021 15:38) Authored: Post-Operative Note, Chart Review, Note Completion Last Updated: 22-Sep-2021 10:54 by Lex Frederick)[facility]01-17-2022 NoteHistory & Physical Reviewed: /Lactating: Are You [...] the note. I personally evaluated the patient [id number] Electronic Signatures: Lex Frederick) (Signed 21-Sep-2021 11:50) Authored: Note Completion Co-Signer: History & Physical Reviewed, ERAS, Consent, Note Completion Jaya Mosquera (Resident)) (Signed 21-Sep-2021 02:51) Authored: History & Physical Reviewed, ERAS, Consent, Note Completion Last Updated: 21-Sep-2021 11:50 by Lex Frederick) References: 1. Data Referenced From MRI Safety Screen v2 19-Sep-2021 19:00[facility]01-15-2022 NoteRehab: Info: Mode of Treatmentoccupational therapy; attempted; OT evaluation initiated with home set-up obtained (1st floor set up/ 0 step entry, lives with , tub shower with chair); Pt with low BP upon arrival 79/54. Second BP reading taken at 71/51. RN notified, further evaluation deferred at this time. OT to reattempt when pt medically appropriate. 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 Exploration of spinal [...] performed and the images transferred to the LifeOnKey system for use in intraoperative image-guided computer-assisted [...] using the torque dri (more content not included)...[facility]01-14-2022 NoteThis report has been cancelled.[facility]01-14-2022 NoteHistory & Physical Reviewed: /Lactating: Are You [...] the note. I personally evaluated the patient [id number] Electronic Signatures: Fidel Maciel (Resident)) (Signed 17-Sep-2021 22:49) Authored: History & Physical Reviewed, ERAS, Consent, Note Completion Lex Frederick) (Signed 19-Sep-2021 10:17) Authored: Note Completion Co-Signer: History & Physical Reviewed, ERAS, Consent, Note Completion Last Updated: 19-Sep-2021 10:17 by Lex Frederick) References: 1. Data Referenced From MRI Safety Screen v2 17-Sep-2021 11:28[facility]01-11-2022 NoteReferral Information: Consult requested by (Attending Name): [...] be able to m (more content not included)...[facility]01-11-2022 NoteHistory of Present Illness: /Lactating: Are You [...] the note. I personally evaluated the patient [id number] Electronic Signatures: Fidel Maciel (Resident)) (Signed 15-Sep-2021 [...] Plan Last Updated: 16-Sep-2021 10:20 by Lex Frederick)[facility]04-23-2021 History of Present illness Narrative* I just had the pleasure of seeing Mrs. Lee back in the Neurosurgery Spine Clinic at the [facility]. She is a very pleasant 46-year-old [...] Ms. JESUS hollis. * Lex Frederick MD, [facility], FAANS * Director - Minimally Invasive Spine Surgery * [facility] * [employer] Neurological Surgery * [employer] * [place], [place] * Some of this note was completed using [employer] voice recognition technology and sometimes the software misinterprets words. This may include unintended errors with respect to translation of words, typographical errors or grammar errors which may not have been identified prior to finalization of the chart note. Please take this into account when reading this note. [employer] Work Phone: [phone] 422-635004-23-2021 Reason for referral (narrative)* Reason for Referral: Patient s/p posterior bilateral L1 transpedicular decompression, posterior T7-T8, T8-T9, T9-T10, T0-T11, T11-T12, T12-L1 hutton hernandez osteotomies, Posterior T5-L4 instrumentation and fusion on 12/26 [facility] Future Appointments Appointment Date:01/07/2022 11:00:00 AM Scheduled Provider: Location:[facility] Appointment Type:Urology CALL PAT FT Appointment Date:01/11/2022 08:00:00 AM Scheduled Provider: Location:[facility] Appointment Type:Urology FT Appointment Date:01/11/2022 09:00:00 AM Scheduled Provider: Location:[facility] Appointment Type:Urology FT [facility] + [facility] + Plan note Future Appointments Appointment Date:04/06/2024 12:00:00 PM Scheduled Provider: Location:FT.MRI Appointment Type:MRI Spine (FT) Appointment Date:04/06/2024 12:00:00 PM Scheduled Provider: Location:[facility] Appointment Type:Surgery FT Future Scheduled Tests Radiology* MRI Spine Cervical w/o Contrast 04/06/24 * MRI Spine Lumbar w/o Contrast 04/06/24 * MRI Spine Thoracic w/o Contrast 04/06/24 [facility] Evaluation note* Neurological: zrunnnr3sow 5/5 except hg/io4+ble 5/5incision cdiHead/Neck: Ox3, awake, alertBUE 5 prox, HG/IO4+BLE HF/KE/DF/PF/EHL 5 [facility]* Constitutional: in no acute distressSkin: Well perfusedEyes: OU 3RHead/Neck: atraumatic, normocephal icRespiratory/Thorax: airway intact, good chest expansionCardiovascular: normal rate, regular rhythmGastrointestinal: non-tenderNeurological: NAD, A&Mf4Xaqzbrs Nerves II-XII: PERRL, EOMI, Face symmetric, Facial SILT, Palate/Tongue midline and symmetric, shoulder shrugs symmetric, hearing intact to finger rubs bilaterallyMotor: RUE D5, B5, T5, HG5, IO5LUE D5, B5, T5, HG5, IO5RLE HF 4+, KE4+, PF4-, DF3LLE HF 4+, KE4+, PF3, DF4-Sensation: SILT throughout all extremitiesPsychological: mood appropriate [facility]* Diagnosis Chronic low back pain, unspecified back pain laterality, unspecified whether sciatica present- Primary Nausea in adult documented in this encounter [facility]* Diagnosis Intrinsic sphincter deficiency (ISD)- Primary Psychophysiological insomnia Persistent disorder of initiating or maintaining sleep Encounter for medication management Dependence on wheelchair Pressure injury of skin of buttock, unspecified injury stage, unspecified laterality documented in this encounter [facility] HealthcareEvaluation note* Diagnosis Chronic low back pain, unspecified back pain laterality, unspecified whether sciatica present documented in this encounter [facility] Healthcare[facility]* Diagnosis Generalized weakness- Primary Generalized weakness Chronic bilateral low back pain, unspecified whether sciatica present Chronic thoracic back pain, unspecified back pain laterality Encounter for screening involving social determinants of health (SDoH) Ambulatory dysfunction Back pain, chronic Incomplete emptying of bladder Incomplete bladder emptying Moderate episode of recurrent major depressive disorder ([facility]) [facility] Narr[facility] No data available for this section [facility] Discharge instructions* Activity:activity as [...] Certification:Home Care Services Needed: yesSkilled Disciplines Ordered: RN/INSURANCE LICENSING SUPERVISOR, PT, OTFace to Face Encounter Completed: yesDate of Encounter: [id number] Necessity for Homecare (based on clinical findings): [...] washing dishes, & loading the dryer or neurology technologist until cleared by MD. * Wound Care:Inspect [...] - Neurosurgeon:Physician/Dept/Service: NeurosurgeonDr Josephuled Date/Time: 08-Jan-2021 10:40Location: [facility] [address] [place], [place]Phone Number: [phone]: 2 week postop/wound check visit; Bring Insurance Card and Photo ID [facility] Dis[facility] instructions No data available for this section [facility] Hospital Discharge instructionsNot on filedocumented in this encounterProParkview Health SystemInstructionsNot on filedocumented in this encounterProParkview Health SystemProgress note No data available for this section [facility] reason for referral (narrative) , urinary incontinence, neurogenic bladder, open bladder neck, possible SP tube placement Referred by: Zachery HARKINS, Danya Rhodes [facility] Reason for referral (narrative)* Consultation (Routine) - Authorized Specialty Diagnoses / Procedures Referred By Contac t Referred To Contact Wound Care Diagnoses Pressure injury of skin of buttock, unspecified injury stage, unspecified laterality Procedures [place] OFFICE/OUTPATIENT NEW HIGH MDM 60 MINUTES Genny Orosco NP [address] [place] [phone] Pérez Pederson MD [address], [place] [address] Referral ID Status Reason Start Date Expiration Date Visits Requested Visits Authorized [id number] Authorized Specialty Services Required 05/15/2024 11/11/2024 1 1 Scheduling Instructions Please include most recent ER visit and OV note. [facility] Summary Purpose Family History No Family History [...] Status:Active Advance Directives No Advanced Directives Records Found Date Activated Date Inactivated Comments 10/01/2024 4:12 AM 10/01/2024 7:23 PM Chief Complaint FUV Additional Source Comments INFORMATION SOURCE (unrecogn ized section and content) DATE CREATED AUTHOR [facility] DATE CREATED AUTHOR AUTHOR'S ORGANIZ ATION 06/20/2019 [facility] DATE CREATED AUTHOR AUTHOR'S ORGANIZ ATION 07/26/2019 [facility] DATE CREATED AUTHOR AUTHOR'S ORGANIZ ATION 12/29/2020 [facility] DATE CREATED AUTHOR AUTHOR'S ORGANIZ ATION 09/16/2021 [facility] DATE CREATED AUTHOR AUTHOR'S ORGANIZ ATION 12/10/2021 [facility] DATE CREATED AUTHOR AUTHOR'S ORGANIZ ATION 08/06/2022 [facility] DATE CREATED AUTHOR AUTHOR'S ORGANIZ ATION 01/17/2023 [facility] DATE CREATED AUTHOR AUTHOR'S ORGANIZ ATION 06/09/2023 [facility] DATE CREATED AUTHOR AUTHOR'S ORGANIZ ATION 12/29/2023 [facility] DATE CREATED AUTHOR AUTHOR'S ORGANIZ ATION 05/15/2024 [facility] EPIC DATE CREATED AUTHOR AUTHOR'S ORGANIZ ATION 09/13/2024 [facility] DATE CREATED AUTHOR AUTHOR'S ORGANIZ ATION 10/02/2024 [facility] <item><item> Privacy Markings (unrecogniz ed section [...] Care Team (unrecognized sect ion and content) Saturation Equipment Operator Relationship Specialty Start Date End Date Shaikh Obrien MD PCP - General Internal Medicine 08/05/23 Saturation Equipment Operator Relationship Specialty Start Date End Date Shaikh Obrien MD PCP - General Internal Medicine 11/15/22 Saturation Equipment Operator Relationship Specialty Start Date End Date Unallocated, N[place] MD Larry [address] [facility] [place] [address] PCP - General Family Medicine 06/04/24 Genny Orosco NP [address] [place] [phone] Nurse Practitioner Family Medicine 04/12/24 Saturation Equipment Operator Relationship Specialty Start Date End Date Kostas Ching MD [address] [place] [phone] PCP - General Family Medicine 04/12/24 Genny Orosco NP [address] [place] [address] Nurse Practitioner Family Medicine 04/12/24 Saturation Equipment Operator Relationship Specialty Start Date End Date Kostas Ching MD [address] [place] [phone] PCP - General Family Medicine 04/12/24 Genny Orosco NP [address] [place] [phone] Nurse Practitioner Family Medicine 04/12/24 Saturation Equipment Operator Relationship Specialty Start Date End Date Kostas Ching MD [address] [place] [phone] PCP - General Family Medicine 04/12/24 Genny Orosco NP [address] [place] [address] Nurse Practitioner Family Medicine 04/12/24 Saturation Equipment Operator Relationship Specialty Start Date End Date Kostas Ching MD [address] [place] [address] PCP - General Family Medicine 04/12/24 Genny Orosco NP [address] [place] [phone] Nurse Practitioner Family Medicine 04/12/24 Saturation Equipment Operator Relationship Specialty Start Date End Date Unallocated, Noms Provider, [address] [place], [place] [phone] PCP - General Family Medicine 06/04/24 Genny Orosco NP [address] [place] [phone] Nurse Practitioner Family Medicine 04/12/24 Saturation Equipment Operator Relationship Specialty Start Date End Date No Pcp, [place] [address] PCP - General Family Medicine 10/01/24 Reason for Visit (unrecogniz ed section and content) Reason Comments Hospital Follow-up Reason Onset Date Comments Med Refill 04/24/2024 Reason Comments Back Pain Specialty Diagnoses / Procedures Referred By Controber t Referred To Contact Diagnoses Chest pain Generalized weakness Beckie Loyd MD [address] [place] [address] Phone: tel: fax: Referral ID Status Reason Start Date Expiration Date Visits Re quested Visits Authorized [id number] 1 1 Scheduled Active and Recently Administ ered Medications (unrecognized section and content) Medication Order 09/29/2024 09/30/2024 10/01/2024 buprenorphine-naloxone (SUBOXONE) 8-2 mg per disintegrating tablet 3 tablet 3 tablet, sublingual, Daily, First dose on Tue10/01/24 at 1100 1043 (Given - Provid er: Carissa Adkins RN) enoxaparin (LOVENOX) syringe 40 mg 40 mg, subcutaneous, Daily, First dose on Tue10/01/24 at 0415, Look-alike/sound-alike medication - verify indication for use. 0550 (Given - Provid er: Natalia Balbuena RN) gabapentin (NEURONTIN) capsule 800 mg 800 mg, oral, 3 times daily, First dose (after last modification) on Tue10/01/24 at 2200, Look-alike/sound-alike medication - verify indication for use. HYDROmorphone (PF) (DILAUDID) injection 1 mg (COMPLETED) 1 mg, intravenous, Once, On Tue09/30/24 at 2340, For 1 dose, If IV push, administer over over 2 to 3 minutes. Look-alike/sound-alike medication - verify indication for use. 0018 (Given - Provid er: Natalia Balbuena RN) nicotine (NICODERM CQ) 21 mg/24 hr 1 patch 1 patch, transdermal, Administer over 24 Hours, Daily, First dose on Tue10/01/24 at 1605, Remove patch prior to MRI procedure as serious toledo may occur- patch may be reapplied. Remove previous patch, if present, before applying new. 1616 (Medication Wade lied - Provider: Carissa Adkins, EVARISTO) orphenadrine (NORFLEX) injection 60 mg (COMPLETED) 60 mg, intravenous, Once, On Tue10/01/24 at 0140, For 1 dose, If ordered IV: give over [address] patient in supine position during and for 5-10 minutes following injection. 0155 (Given - Provid er: Natalia Balbuena RN) Continuous Medication Order 09/29/2024 09/30/2024 10/01/2024 sodium chloride 0.9 % infusion 100 mL/hr, intravenous, Continuous, Starting on Tue10/01/24 at 0415, For 1 day 0430 (New Bag - Prov ider: Natalia Balbuena RN)1511 (Stop Bag - Provider: Carissa Adkins RN)1513 (New Bag - Provider: Carissa Adkins, RN)1646 (Stop Bag - Provider: Carissa Adkins, RN) PRN Medication Order 09/29/2024 09/30/2024 10/01/2024 acetaminophen (TYLENOL) tablet 650 mg 650 mg, oral, Every 4 hours PRN, headaches, mild pain - pain scale 1-3, Temperature greater than 38.3 C, Starting on Tue10/01/24 at 0412, [Warning: Total Acetaminophen not to exceed more than 4 grams (4000 mg) in 24 hours] alum-mag hydroxide-simeth (MAALOX) 200-200-20 mg/5 mL suspension 30 mL 30 mL, oral, 4 times daily after meals and at bedtime as needed, dyspepsia, Starting on Tue10/01/24 at 0412, Look-alike/sound-alike medication - verify indication for use. Shake well., Indications: dyspepsia calcium gluconate 3,000 mg in sodium chloride 0.9 % 100 mL IVPB 3,000 mg, intravenous, at 43.3 mL/hr, Administer over 3 Hours, As needed, ionized calcium 3.5 to 3.9 mg/dL, Starting on Tue10/01/24 at 0413, IV Administration of calcium via a central or deep vein preferred. Avoid administration in small hand veins VESICANT (RED) calcium gluconate 4,000 mg in sodium chloride 0.9 % 250 mL IVPB 4,000 mg, intravenous, at 72.5 mL/hr, Administer over 4 Hours, As needed, ionized calcium 3.4 mg/dL or less, Starting on Tue10/01/24 at 0413, IV administration of calcium via a central or deep vein is preferred. Avoid administration in small hand veins. VESICANT (RED) calcium gluconate IVPB 2000 mg/100 mL (20 mg/mL premix) 2,000 mg, intravenous, at 50 mL/hr, Administer over 2 Hours, As needed, ionized calcium 4 to 4.3 mg/dL, Starting on Tue10/01/24 at 0413, IV Administration of calcium via a central or deep vein preferred. Avoid administration in small hand veins VESICANT (RED) dextrose (GLUTOSE) 40 % gel 15 g 15 g, oral, As needed, low blood sugar, blood glucose less than 70 mg/dL, Starting on Tue10/01/24 at 0412, If patient conscious and taking PO. If blood glucose is not greater than 70 mg/dL after initial treatment, repeat treatment. dextrose 5 % (D5W) infusion 100 mL/hr, intravenous, Continuous PRN, blood glucose less than 70 mg/dL, Starting on Tue10/01/24 at 0412, Use immediately following dextrose 50% or glucagon treatment for patients who are unconscious or NPO. Contact prescriber for additional orders. If blood glucose is not greater than 70 mg/dL after initial treatment, repeat treatment. dextrose 50 % in water (D50W) 50% solution 25 mL 25 mL, intravenous, As needed, low blood sugar, blood glucose less than 70 mg/dL and unconscious or NPO with IV access, Starting on Tue10/01/24 at 0412, Push over 1-3 minutes STAT. If conscious and not NPO, immediately follow with meal tray or high protein (7 grams) snack if tray not available. If NPO, initiate 5% dextrose in water at 100 mL/hr and contact prescriber for additional orders. If blood glucose is not greater than 70 mg/dL after initial treatment, repeat treatment. VESICANT (RED) Warning: HYPERTONIC solution. diazePAM (VALIUM) tablet 5 mg 5 mg, oral, Every 6 hours PRN, muscle spasms, Starting on Tue10/01/24 at 1007, Look-alike/sound-alike medication - verify indication for use. Do not use solution in feeding tubes (due to absorption to plastic tubing). Tablets may be crushed and administered in tubes (except j-tube) 1043 (Given - Provid er: Carissa Adkins RN) glucagon HCL injection 1 mg 1 mg, intramuscular, As needed, low blood sugar, blood glucose less than 70 mg/dL and unconscious or NPO without IV access., Starting on Tue10/01/24 at 0412, If conscious and not NPO, immediately follow with meal tray or high protein (7Grams) snack if tray not available. If NPO, initiate IV 5% Dextrose/Water at 100 mL/hr and contact prescriber for additional orders. If blood glucose is not greater than 70 mg/dL after initial treatment, repeat treatment. ketorolac (TORADOL) injection 15 mg 15 mg, intravenous, Every 6 hours PRN, severe pain - pain scale 7-10, Starting on Tue10/01/24 at 1601, For 5 days, Look-alike/sound-alike medication - verify indication for use. Duration of therapy is not to exceed 5 days. Maximum recommended dose + 120mg/24 hours. 1617 (Given - Provid er: Carissa Adkins RN) magnesium sulfate IVPB 2000 mg/50 mL in iso-osmotic water (40 mg/mL premix) 2,000 mg, intravenous, at 25 mL/hr, Administer over 120 Minutes, As needed, Magnesium level 1.7 to 1.9 mg/dL, or Ionized Magnesium level 0.45 to 0.5 mmol/L., Starting on Tue10/01/24 at 0413, Recheck magnesium level 4 hours after infusion complete. With each magnesium result continue the replacement orders as needed. magnesium sulfate IVPB 4000 mg/100 mL in iso-osmotic water (40 mg/mL premix) 4,000 mg, intravenous, at 25 mL/hr, Administer over 240 Minutes, As needed, Magnesium level 1.6 mg/dL or less, or Ionized Magnesium level 0.44 mmol/L or less, Starting on Tue10/01/24 at 0413, Recheck magnesium level 4 hours after infusion complete. With each magnesium result continue the replacement orders as needed. morphine injection 2 mg (CANCELED) 2 mg, intravenous, Every 4 hours PRN, moderate pain - pain scale 4-6, severe pain - pain scale 7-10, Breakthrough pain, or if oral pain medication ineffective or not tolerated. Or if patient NPO, Starting on Tue10/01/24 at 0413, Look-alike/sound-alike medication - verify indication for use. 0817 (Given - Provid er: Carissa Adkins, RN) ondansetron (PF) (ZOFRAN) injection 4 mg 4 mg, intravenous, Every 4 hours PRN, nausea, vomiting, Starting on Tue10/01/24 at 0412, Administer over 2-5 minutes. 08 (Given - Provid er: Carissa Adkins RN) potassium chloride (KAYCIEL) 20 mEq/15 mL solution 30-40 mEq(Linked Group 1) 30-40 mEq, oral, As needed, Potassium Supplementation, Starting on Tue10/01/24 at 0413, Progress to oral potassium replacement when patient tolerating oral intake. If dose administered, recheck potassium level 4 hours after last dose. For potassium level 3.4 to 3.8 mmol/L and GFR 30 mL/min or greater=30 mEq. For potassium level 3.1 to 3.3 mmol/L and GFR 30 mL/min or greater=40 mEq. For potassium level 3 mmol/L or less and GFR 30 mL/min or greater=50 mEq. Must dilute before use - Mix in 3-8 ounces of water or juice before administration When administering in feeding tube, flush before and after per policy and monitor potassium levels potassium chloride (KLOR-CON M 20) CR tablet 30-50 mEq(Linked Group 1) 30-50 mEq, oral, As needed, Potassium Supplementation, Starting on Tue10/01/24 at 0413, Progress to oral potassium replacement when patient tolerating oral intake. If dose administered, recheck potassium level 4 hours after last dose. For potassium level 3.4 to 3.8 mmol/L and GFR 30 mL/min or greater=30 mEq. For potassium level 3.1 to 3.3 mmol/L and GFR 30 mL/min or greater=40 mEq. For potassium level 3 mmol/L or less and GFR 30 mL/min or greater=50 mEq. Do not crush or chew. potassium chloride IVPB 10 mEq/100 mL in water (0.1 mEq/mL premix)(Linked Group 1) 10 mEq, intravenous, at 100 mL/hr, Administer over 60 Minutes, As needed, POTASSIUM REPLACEMENT, Starting on Tue10/01/24 at 0413, IV if unable to use oral/enteral with the current dosing strategies Potassium level 3 mmol/L or less administer Potassium Chloride 50 mEq Potassium level 3.1 to 3.3 mmol/L administer Potassium Chloride 40 mEq Potassium level 3.4 to 3.8 mmol/L administer Potassium Chloride 30 mEq Use central line when applicable. Recheck potassium level 1 hour after total IVPB infusion complete, With each potassium result continue the replacement orders as needed VESICANT (YELLOW) Infuse each 10 mEq over a minimum of 1 hour. sennosides-docusate sodium (SENOKOT-S) 8.6-50 mg 1 tablet 1 tablet, oral, Every 12 hours PRN, constipation, Starting on Tue10/01/24 at 0412 sod phos di, mono-K phos mono (K-PHOS NEUTRAL) 250 mg tablet 2 tablet(Linked Group 2) 2 tablet, oral, As needed, for phosphorus level 2.3 mg/dL or less., Starting on Tue10/01/24 at 0413, If dose administered, recheck phosphorus level 4 hours after last dose. Look-alike/sound-alike medication - verify indication for use. Give with a full glass of water. sodium chloride 0.9 % flush 3 mL 3 mL, intravenous, As needed, line care, before and after each intermittent use, Starting on Tue09/30/24 at 2333 0822 (Given - Provid er: Carissa Adkins RN) sodium chloride 0.9 % flush bag 25 mL, intravenous, at 100 mL/hr, Administer over 15 Minutes, As needed, line care, line care after IVPB administration, Starting on Tue10/01/24 at 0412 sodium chloride 0.9 % infusion 20 mL/hr, intravenous, Continuous PRN, to maintain patency of lines, Starting on Tue10/01/24 at 0412 sodium phosphate 20 mmol in sodium chloride 0.9 % 100 mL IVPB(Linked Group 2) 20 mmol, intravenous, at 26.7 mL/hr, Administer over 4 Hours, As needed, for phosphorus level 2.3 mg/dL or less., Starting on Tue10/01/24 at 0413, Administer over 4 hours via dedicated line (central line). If administered, recheck phosphorus level 4 hours after infusion complete. Infuse using central line access. sodium phosphate 20 mmol in sodium chloride 0.9 % 250 mL IVPB(Linked Group 2) 20 mmol, intravenous, at 42.8 mL/hr, Administer over 6 Hours, As needed, for phosphorus level 2.3 mg/dL or less, Starting on Tue10/01/24 at 0413, Administer over 6 hours via dedicated line (peripheral line). If administered, recheck phosphorus level 4 hours after infusion complete. tiZANidine (ZANAFLEX) tablet 4 mg 4 mg, oral, Every 6 hours PRN, muscle spasms, Starting on Tue10/01/24 at 1004, Look-alike/sound-alike medication - verify indication for use. 1043 (Given - Provid er: Carissa Adkins RN) Linked Groups Order Group 1: potassium chloride (KLOR-CON M 20) CR tablet 30-50 mEqJump to med 30-50 mEq, oral, As needed, Potassium Supplementation, Starting on Tue10/01/24 at 0413, Progress to oral potassium replacement when patient tolerating oral intake. If dose administered, recheck potassium level 4 hours after last dose. For potassium level 3.4 to 3.8 mmol/L and GFR 30 mL/min or greater=30 mEq. For potassium level 3.1 to 3.3 mmol/L and GFR 30 mL/min or greater=40 mEq. For potassium level 3 mmol/L or less and GFR 30 mL/min or greater=50 mEq. Do not crush or chew. Or potassium chloride (KAYCIEL) 20 mEq/15 mL solution 30-40 mEqJump to med 30-40 mEq, oral, As needed, Potassium Supplementation, Starting on Tue10/01/24 at 0413, Progress to oral potassium replacement when patient tolerating oral intake. If dose administered, recheck potassium level 4 hours after last dose. For potassium level 3.4 to 3.8 mmol/L and GFR 30 mL/min or greater=30 mEq. For potassium level 3.1 to 3.3 mmol/L and GFR 30 mL/min or greater=40 mEq. For potassium level 3 mmol/L or less and GFR 30 mL/min or greater=50 mEq. Must dilute before use - Mix in 3-8 ounces of water or juice before administration When administering in feeding tube, flush before and after per policy and monitor potassium levels Or potassium chloride IVPB 10 mEq/100 mL in water (0.1 mEq/mL premix)Jump to med 10 mEq, intravenous, at 100 mL/hr, Administer over 60 Minutes, As needed, POTASSIUM REPLACEMENT, Starting on Tue10/01/24 at 0413, IV if unable to use oral/enteral with the current dosing strategies Potassium level 3 mmol/L or less administer Potassium Chloride 50 mEq Potassium level 3.1 to 3.3 mmol/L administer Potassium Chloride 40 mEq Potassium level 3.4 to 3.8 mmol/L administer Potassium Chloride 30 mEq Use central line when applicable. Recheck potassium level 1 hour after total IVPB infusion complete, With each potassium result continue the replacement orders as needed VESICANT (YELLOW) Infuse each 10 mEq over a minimum of 1 hour. Group 2: sodium phosphate 20 mmol in sodium chloride 0.9 % 250 mL IVPBJump to med 20 mmol, intravenous, at 42.8 mL/hr, Administer over 6 Hours, As needed, for phosphorus level 2.3 mg/dL or less, Starting on Tue10/01/24 at 0413, Administer over 6 hours via dedicated line (peripheral line). If administered, recheck phosphorus level 4 hours after infusion complete. Or sodium phosphate 20 mmol in sodium chloride 0.9 % 100 mL IVPBJump to med 20 mmol, intravenous, at 26.7 mL/hr, Administer over 4 Hours, As needed, for phosphorus level 2.3 mg/dL or less., Starting on Tue10/01/24 at 0413, Administer over 4 hours via dedicated line (central line). If administered, recheck phosphorus level 4 hours after infusion complete. Infuse using central line access. Or sod phos di, mono-K phos mono (K-PHOS NEUTRAL) 250 mg tablet 2 tabletJump to med 2 tablet, oral, As needed, for phosphorus level 2.3 mg/dL or less., Starting on Tue10/01/24 at 0413, If dose administered, recheck phosphorus level 4 hours after last dose. Look-alike/sound-alike medication - verify indication for use. Give with a full glass of water. FOR RECORDS PERTAINING TO PATIENTS WHO ARE [...] BE BASED ON THE PRIMARY CLINICAL RECORDS. [facility] [employer] [facility]. provides no warranty or guarantee of the accuracy or completeness of information in this document.
--- NOTE | 2024-10-05 09:39 | XR_ITS ---
The [address] [address] Patient Name: MORALES LEE MRN: [id number] date: 1975 Sex: F Assigned Patient Location: ED.MAIN Current Patient Location: ER Accession/Order Number: [id number] Exam Date: 10/05/2024 10:32 Report Date: 10/05/2024 11:14 At the request of: MICHAEL SORIA Procedure: XR chest 1V EXAMINATION: XR chest 1V HISTORY: Syncope COMPARISON: 05/04/2024 TECHNIQUE: AP portable FINDINGS: LUNGS: No significant pulmonary parenchymal abnormalities. VASCULATURE: No increased pulmonary vasculature. PLEURA: No pneumothorax, effusion, or pleural thickening. CARDIAC: No cardiomegaly or cardiac silhouette abnormality. MEDIASTINUM: No visible mass or adenopathy. BONES: No fracture or visible bone lesion. Cervical and thoracolumbar fusion hardware with no definite mechanical failure OTHER: Negative. XR/XR chest 1V IMPRESSION: No acute cardiopulmonary process Electronically authenticated by: ARIADNA STEWART Date: 10/05/2024 11:14
--- NOTE | 2024-10-05 09:41 | CT_ITS ---
The [address] [address] Patient Name: MORALES LEE MRN: [id number] date: 1975 Sex: F Assigned Patient Location: ED.MAIN Current Patient Location: Accession/Order Number: [id number] Exam Date: 10/05/2024 10:32 Report Date: 10/05/2024 11:14 At the request of: MICHAEL SORIA Procedure: CT thoracic spine wo con PROCEDURE: CT thoracic spine wo con, CT cervical spine wo con COMPARISON: 06/08/2023 HISTORY: fall TECHNIQUE: Axial, Coronal, and Sagittal CT images obtained without IV contrast. Dose reduction techniques were achieved by using automated exposure control and/or adjustment of mA and/or kV according to patient size and/or use of iterative reconstruction technique. FINDINGS: PARASPINAL AREA: Normal with no visible mass. DISCS: Interbody fusion C6-C7. Mild multilevel disc space narrowing BONES: Normal alignment of the cervical and thoracic vertebral bodies with no acute fracture or spondylolisthesis. Anterior fusion with a plate and screws C6-C7 with no mechanical failure. Posterior decompression and transpedicular fusion of the lumbosacral spine. There is stable 40% anterior wedge compression fracture of the L1 vertebral body. Mild diffuse degenerative spondylosis and facet osteoarthropathy. OTHER: Negative. CT/CT thoracic spine wo con IMPRESSION: No acute traumatic abnormality of the cervical or thoracic spine Electronically authenticated by: ARIADNA STEWART Date: 10/05/2024 11:14
--- NOTE | 2024-10-05 09:41 | CT_ITS ---
The [address] [address] Patient Name: MORALES LEE MRN: [id number] date: 1975 Sex: F Assigned Patient Location: ER Current Patient Location: ER Accession/Order Number: [id number] Exam Date: 10/05/2024 10:32 Report Date: 10/05/2024 12:09 At the request of: MICHAEL SORIA Procedure: CT head/brain wo con CT head without contrast, 10/05/2024. HISTORY: Found unresponsive. COMPARISON: CT head, 10/16/2019. TECHNIQUE: Noncontrast axial CT images obtained through the head. Reconstructions obtained in the sagittal and coronal planes. Dose reduction techniques were achieved by using automated exposure control and/or adjustment of mA and/or kV according to patient size and/or use of iterative reconstruction technique. FINDINGS: Paranasal sinuses clear. Middle ear cavities and mastoid air cells are clear. Skull base is intact. Nasopharynx normal. Orbital contents normal. Extracranial soft tissue structures unremarkable. The ventricles are normal in size. No hydrocephalus. No mass effect. No shift of midline. No hemorrhage. No mass. CT/CT head/brain wo con IMPRESSION: Normal CT of the head. Electronically authenticated by: SIVA PIERCE Date: 10/05/2024 12:09
[2024-10-05 09:43] LABS: Glucometer 93 mg/dL (74-106)
[2024-10-05] MEDS: ONDANSETRON 4 MG RAPDIS TABLET PO (10:16)
[2024-10-05] MEDS: BUPRENORPHINE HCL/NALOXONE HCL 8-2 MG TABLET SUBL 1 TAB SL ×2 (10:23→19:34)
--- NOTE | 2024-10-05 10:25 | ED.GENADUL1 ---
HPI HPI - General Adult General Chief complaint: Altered Mental Status Stated complaint: altered mental status Time Seen by Provider: 10/05/24 09:36 Source: patient Mode of arrival: ambulance Limitations: no limitations History of Present Illness HPI narrative: Patient is a 49-year-old female who is presenting to the ER from a unwitnessed fall in her kitchen. Patient was making coffee. Patient had fallen in her kitchen, she was found by her son. Patient was brought in by EMS. Patient is not in a cervical collar, uncertain of blood sugar was checked. Blood sugar was checked when she arrived it was 93. Patient has multiple ongoing chronic medical diagnoses. A empty Ativan 0.5 mg bottle was found in the kitchen, there were 14 tablets filled on October 02, 2024 which was 3 days ago. The bottle was empty. Patient admits to taking 6 of them yesterday, states that she did not take any today. has taken some of them as well per patient. Patient takes Suboxone 8 mg 3 times a day. Patient has history of opiate and benzo dependence. patient's PCP was prescribing her 15 mg of Valium a day. Patient no longer is being prescribed Valium. Patient believes that she is going through benzo withdrawal from Valium. Patient has not been taking Valium 3 times a day for what appears 1 to 2 months. Patient had been admitted to the hospital recently, she was receiving Valium on the inpatient floor, and stated she felt better when she is taking Valium. Patient does not remember falling down. She has no headache. She does have mild cervical pain. She has no chest pain or shortness of breath. Patient does have a indwelling Alvares catheter secondary to urinary incontinence from previous spinal conditions and surgeries. Patient is currently taking an antibiotic for urinary tract infection that was prescribed from [facility] this past Tuesday when she went there for evaluation. Patient currently has a neurosurgeon at [facility]. They are going to perform a MRI under anesthesia, but patient had a urinary tract infection and they did not want to perform the study at that time. Patient did call her neurosurgeon office a few days ago, trying to get back into the office. There is no plan for new surgery. Patient has no abdominal pain nausea vomiting. She has no new acute complaints her arms, legs, or back. Patient has chronic diffuse back pain and has had several back surgeries in the past. No strokelike signs or symptoms. . All systems are negative except as noted/marked. All systems reviewed and otherwise negative. Nurses note and vital signs reviewed and patient is not hypoxic. Lian Livingston RN was at bedside during the entire HPI and physical exam. Patient was clinically removed from the [place] board. General: The patient appears slightly disheveled, tearful, upset. Patient is resting uncomfortably on cart. Patient is not toxic, lethargic, or listless. No delirium, hallucinations, not suicidal homicidal. Tearful because she believes that she is going through Valium withdrawal. Patient has coffee grounds that she is covered in, secondary to that she was making coffee, coffee grounds fell on the floor, because she has coffee grounds sticking to her skin and somewhat in her hair as well. No signs of acute aspiration. Skin: Warm, dry, no pallor noted. There is no rash noted. No petechiae, purpura. Chronic changes to her posterior thighs where she sits in a chair or wheelchair. Healing ulcerations, no acute signs of infection. Head: Normocephalic, atraumatic; no scalp hematoma. Patient does have minimal bilateral paracervical tenderness to palpation, no new midline cervical pain. Patient does not want cervical collar placed. CT will be performed. Eye: Normal conjunctiva, no drainage, EOMI. PERRL. 4/2 equal, bilateral. Ears, Nose, Mouth, and Throat: oral mucosa is dry, extremely poor dentition, missing most of her teeth. No other secondary signs of intraoral pathology. Significant dental caries to #9, #10, no other intraoral pathology noted. No signs of aspiration or bleeding intraoral.. Nares patent. Mouth without vesicles. Cardiovascular: Regular Rate and Rhythm, no murmur, gallop, rub Respiratory: Patient is in no distress, no accessory muscle use, lungs are clear to auscultation, no wheezing, rales or rhonchi Back: Patient does have swelling noted to the left parathoracic area at approximately T10-T12, patient states there is no new pain to her back. Lian TESFAYE was at bedside during the entire history and physical. Patient states that she has no new midline cervical thoracic lumbar tenderness palpation, she has chronic paraspinal tenderness palpation, no new step-offs. no CVA tenderness bilaterally to percussion. No CT LS midline pain that is new per patient and she was asked 3 different times. GI: Obese, no tenderness to palpation, no masses appreciated. No rebound, guarding, or rigidity noted. No distention : Patient does have a indwelling Alvares catheter. Patient has yellow urine noted in Alvares bag, no sediment or blood. Musculoskeletal: Patient has full range of motion of all of the extremities with passive range of motion , no motor, sensory, or focal neurological deficits that are new. Patient has chronic skin color changes to her feet, no new acute neurovascular or motor or sensory deficits to her feet. Patient has chronic fungal infections to all of her toenails from bilateral feet. Patient has no new signs of necrosis, no new vascular compromise to her toes as well. No secondary signs of infection, necrosis, gangrene, or ulcers to her feet Neurological: A&O x4, normal speech; NIH 0 Psychiatric: Cooperative, not suicidal homicidal, tearful for patient's situation, no smell of alcohol Related Data Home Medications ?Medication ?Instructions ?Recorded ?Confirmed buprenorphine 8 mg-naloxone 2 mg 1 film sublingual Q8H 03/01/23 10/05/24 sublingual film gabapentin 800 mg tablet 800 mg PO TID 03/30/23 10/05/24 tizanidine 4 mg tablet 4 mg PO Q8H PRN muscle spasticity 03/30/23 10/05/24 potassium chloride 20 mEq 20 meq PO DAILY 10/05/24 10/05/24 tablet,extended release(part/cryst) sulfamethoxazole 800 1 tab PO Q12H 10/05/24 10/05/24 mg-trimethoprim 160 mg tablet Allergies Allergy/AdvReac Type Severity Reaction Status Date / Time codeine Allergy Severe rash Verified 10/05/24 09:13 Penicillins Allergy Severe Anaphylaxis Verified 10/05/24 09:13 quetiapine (From Seroquel) Allergy Severe Seizure Verified 10/05/24 09:13 Opioid HPI Opioid Management Most Recent Opioid Data: Last Pain Scale 5 09/25/24 16:34 09/25/24 Last ORT Total Score 10 09/01/24 08:58 09/01/24 Last ORT Risk Category High Risk 09/01/24 08:58 09/01/24 Urine Drug Screen Interp Final (.) 05/14/24 09:30 05/14/24 Ur Phencyclidine Scrn Negative (NEGATIVE) 10/05/24 10:20 10/05/24 [facility] Medical History 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 (ICD-10) Ulcer of left heel and midfoot, limited to breakdown of skin (~08/27/24) ?L97.421 - Non-pressure chronic ulcer of left heel and midfoot limited to breakdown of skin (ICD-10) Opioid use disorder in remission ?F11.91 - Opioid use, unspecified, in remission (ICD-10) Indwelling Alvares catheter present ?Z97.8 - Presence of other specified devices (ICD-10) Accidental fall ?W19.XXXA - Unspecified fall, initial encounter (ICD-10) Pressure ulcer ?L89.90 - Pressure ulcer of unspecified site, unspecified stage (ICD-10) Cellulitis ?L03.90 - Cellulitis, unspecified (ICD-10) Urinary tract infection ?N39.0 - Urinary tract infection, site not specified (ICD-10) Urinary catheter (Alvares) change required ?Z46.6 - Encounter for fitting and adjustment of urinary device (ICD-10) Constipation ?K59.00 - Constipation, unspecified (ICD-10) Alvares catheter problem ?T83.9XXA - Unspecified complication of genitourinary prosthetic device, implant and graft, initial encounter (ICD-10) Drug-seeking behavior ?Z76.5 - Malingerer [conscious simulation] (ICD-10) UTI (urinary tract infection) ?N39.0 - Urinary tract infection, site not specified (ICD-10) Gastritis ?K29.70 - Gastritis, unspecified, without bleeding (ICD-10) Nausea & vomiting ?R11.2 - Nausea with vomiting, unspecified (ICD-10) Pressure sore ?L89.90 - Pressure ulcer of unspecified site, unspecified stage (ICD-10) Retention of urine, unspecified ?R33.9 - Retention of urine, unspecified (ICD-10) Decubital ulcer ?L89.90 - Pressure ulcer of unspecified site, unspecified stage (ICD-10) Swollen leg ?M79.89 - Other specified soft tissue disorders (ICD-10) Bronchitis ?J40 - Bronchitis, not specified as acute or chronic (ICD-10) Alvares catheter problem ?T83.9XXA - Unspecified complication of genitourinary prosthetic device, implant and graft, initial encounter (ICD-10) Vomiting ?R11.10 - Vomiting, unspecified (ICD-10) UTI (urinary tract infection) ?N39.0 - Urinary tract infection, site not specified (ICD-10) Gastritis ?K29.70 - Gastritis, unspecified, without bleeding (ICD-10) Candidal intertrigo ?B37.2 - Candidiasis of skin and nail (ICD-10) Leukocytosis ?D72.829 - Elevated white blood cell count, unspecified (ICD-10) Chronic back pain ?M54.9 - Dorsalgia, unspecified (ICD-10) ?G89.29 - Other chronic pain (ICD-10) Fecal incontinence ?R15.9 - Full incontinence of feces (ICD-10) Urinary incontinence ?R32 - Unspecified urinary incontinence (ICD-10) Wheelchair dependence ?Z99.3 - Dependence on wheelchair (ICD-10) Cord compression myelopathy ?G95.20 - Unspecified cord compression (ICD-10) Surgical History History of back surgery ?Z98.890 - Other specified postprocedural states (ICD-10) Chronic suprapubic catheter ?Z93.59 - Other cystostomy status (ICD-10) Social History Within the past year, how often did you have a drink containing alcohol: never Score interpretation: A score less than 3 is consistent with normal alcohol consumption. Smoking status: Current every day smoker Non-prescribed substance use: former substance user Highest level of school completed/degree received: GED or equivalent Little interest or pleasure in doing things: not at all Feeling down, depressed, or hopeless: not at all Exam Constitutional Vital Signs, click to edit/add: Last Vital Signs Temp 98.6 F 10/05/24 09:20 Pulse 69 10/05/24 11:20 Resp 12 10/05/24 11:20 BP 107/69 10/05/24 11:00 Pulse Ox 97 10/05/24 11:20 O2 Del Method Room Air 10/05/24 09:06 Course Vital Signs Vital signs: Vital Signs Pulse Rate 88 10/05/24 09:06 Respiratory Rate 20 10/05/24 09:06 Blood Pressure 111/74 10/05/24 09:06 Pulse Oximetry 99 10/05/24 09:06 Oxygen Delivery Method Room Air 10/05/24 09:06 Temperature 98.6 F 10/05/24 09:20 Pulse Rate 69 10/05/24 11:20 Respiratory Rate 12 10/05/24 11:20 Blood Pressure 107/69 10/05/24 11:00 Pulse Oximetry 97 10/05/24 11:20 Oxygen Delivery Method Room Air 10/05/24 09:06 Medical Decision Making MDM Narrative Medical decision making narrative: 1000 there was approximately 20 minutes spent at bedside between myself, Malena TESFAYE, Jessie TESFAYE ER director, myself, patient, and . Wells manager nursing was at bedside as well. Patient is tearful during the process, patient's shows a lot of agitation, irritation, frustration, somewhat angry but respectful as well for patient's acute and chronic symptoms. Patient has had several back surgeries. is fighting for his rightfully so, and trying to help fix multiple ongoing chronic symptoms and concerns. Patient's main concern is that she needs to be detox from Valium. Patient was prescribed Valium 15 mg a day for lengthy amount of time, patient states that her PCP will not prescribe it for her anymore. Patient states that he is adamantly sure that she did not overdose or take any additional medication this morning, he gets her pills ready for her every day at home, and the medications are still sitting on the counter. Patient does take Suboxone 8 mg 3 times a day, she did not have her Suboxone this morning. Patient does have an active neurosurgeon that they are working with at [facility]. Patient is alert and orient x 3, patient does have the functional decision-making capacity to decide on what test she would like to have done today or not. Patient does not want an IV, she is allowing a lab test, CAT scans. Patient is currently on an antibiotic for urinary tract infection that was found at [facility] on Tuesday. We will perform medical evaluation, Jessie Rodriguez RN has called [facility] and [facility] do admit patients for benzo withdrawal and rehabilitation. was given that information, also we will have [facility] evaluation as well. 1145 a lengthy conversation was had again with patient, and Lian TESFAYE at bedside the entire time as a witness. Patient wanted to explain her history of some of the decisions she has made in the past with opiate addiction/dependence, overdoses, and how she has cleaned herself up, is a good person, is not ignorant and is upset that a lot of physicians in different health facilities treat her from her past. Patient is currently transitioning to Dr. Greer at the [facility] department from Dr. Obrien. She explained the story to me how the first time she met her new PCP at [facility] that she had oxycodone in her urine, and feels like she was judged because she was on too many stimulants patient wanted to have another urine testing that was not done. Patient says she never took oxycodone because she is on Suboxone. I listened to the patient, she takes no medication for depression, stress or anxiety. Patient stated she was on Prozac years ago but currently is not. She currently has no mental health physician or psychiatrist. Patient says she called for psychiatrist appointment yesterday it was not able to make an appointment. Patient was very thankful for speaking to [facility]. Patient also is aware that we have spoken to [facility] and they do take people with need of benzo detoxification and rehabilitation. Patient asked me what is she can do about her benzo withdrawal. Patient is supplementing her Valium prescriptions with some of her husbands Ativan. Patient does not appear to be going through withdrawal of significance from benzos at this time in the ER today. Patient is not suicidal homicidal. Patient feels hopeless, she does not feel hopeless or worthless, she is not suicidal homicidal. Patient is upset because her quality of life is nothing of what it used to be. She has no suicidal ideation. 1415 Patient is stating that she has going through withdrawal from her benzos. Patient is not tachycardic, normotensive. Patient will be given 1 mg of Ativan to help with her stress anxiety. We are currently waiting for [facility] to do thorough evaluation of the patient and see if she does meet admission criteria for dual diagnosis of possible benzo withdrawal and also depression versus major depression. Patient was on the iPad for over an hour talking to the [facility] and being evaluated. 1700 I went into the room to speak to the patient and , the lights were turned off. closed the door with the lights off in the room with me, him, and the patient. He then told me that he has another problem, that children services has been called and they are going to his house and now he has a whole another problem. I informed the patient that I did not call children services from the emergency room. He states that he knows this, the drop wire builder and EMS called children's services. I then opened up the door stating I cannot be in the room with them with the door closed and then I turn the light on. I was only in the room with the door closed for approximately 1 minute. Patient understood the opening of the door and had no problems with that. Lian TESFAYE then came into the room again and also updating them on patient's status which I had just done as well waiting for [facility] to do their due diligence trying to find patient admission for mental health. 1750 we have been told from [facility] that they cannot take the patient in admission. [facility] has been working for the past several hours trying to find admission place for this patient. SHe has been difficulty secondary to patient being in the wheelchair, also having pressure ulcers that are healing to the posterior thighs and her multiple comorbidities making it difficult to find a place for patient to be admitted to for dual diagnosis. 1755 patient asked to talk to me again, this was approximate 20 minutes ago. I was trying to discharge the patient at the time. Have gone back into the room to speak to the again and he is not in the room. 1840 I have spoken to Hardy from mental health [facility]. She stated that we are currently waiting for evaluation from [facility]. Please see [facility] consultations. 2 different therapist have been working with this patient today. Hardy has been working with this patient since approximately 3 PM. Patient's comorbidities are causing some difficulty in trying to get her accepted and admitted to several different places. Patient feels helpless, not hopeless, not worthless. She is not suicidal homicidal. Patient wants help. Patient most likely has depression that is untreated. She has no psychiatrist. Patient has not shown any signs or symptoms of true benzo withdrawal today despite her stating that she is going through benzo withdrawal. Patient has asked Lian TESFAYE several times if she is going to get a prescription for Valium when she is discharged. Her PCP stopped prescribing her Valium and this is why she thinks she is going through benzo withdrawal, but she has not had a prescription consistently for months with Valium. Patient did take 6 of patient's prescription yesterday. [facility] is not able to accept this patient's admission. Unfortunately we have exhausted all of her opportunities to try to places patient from the emergency room. Patient and are made aware of this. stated they are comfortable taking patient home, though I do appreciate the efforts. Patient understands that I cannot prescribe her Valium from the emergency room. Patient is to contact her PCP, also contact neurosurgery from [facility]. Patient was given brochures and education information from P from [facility], also from [facility]. Patient has been here a significant amount of time, multiple bedside visits have been made by myself, nursing staff and a significant amount of phone calls have been made as well. Patient does not need admission to the hospital, she does not need to be pink slipped, patient has a functional decision made capacity to be discharged with and follow-up as an outpatient. Critical care time 95 minutes exclusive from separate billable procedures that were performed. The following was considered in the determination of critical care but not limited to the level of medical decision making, intensive cardiac and/or respiratory monitoring, frequent vital sign monitoring, evaluation of laboratory studies, evaluation of radiographic studies, oxygen monitoring, and constant monitoring and speaking to family at bedside Lab Data Lab results reviewed: Yes I reviewed the patient's lab results Labs: Lab Results 10/05/24 10/05/24 10/05/24 Range/Units 09:31 10:20 10:24 WBC 7.8 (4.0-11.0) 10^3/uL RBC 5.28 (4.20-5.40) 10^6/uL Hgb 15.0 (12.0-16.0) g/dL Hct 45.6 (36.0-48.0) % MCV 86.4 (81.0-99.0) fL MCH 28.4 (26.7-34.0) pg MCHC 32.9 (29.9-35.2) g/dL RDW 16.4 H (11.0-15.0) % Plt Count 277 (150-450) 10^3/uL MPV 9.7 (9.5-13.5) fL Neut % (Auto) 57.6 (43.0-75.0) % Lymph % (Auto) 32.5 (20.5-60.0) % Freestone % (Auto) 5.5 (1.7-12.0) % Eos % (Auto) 3.2 (0.9-7.0) % Baso % (Auto) 0.9 (0.2-2.0) % Neut # (Auto) 4.5 (1.4-6.5) 10^3/uL Lymph # (Auto) 2.5 (1.2-3.8) 10^3/uL Freestone # (Auto) 0.4 (0.3-0.8) 10^3/uL Eos # (Auto) 0.3 (0.0-0.7) 10^3/uL Baso # (Auto) 0.1 (0.0-0.1) 10^3/uL Abs Immat Gran (auto) 0.02 (0.00-0.03) 10^3/uL Imm/Tot Granulo (auto) 0.3 (0.0-0.5) % PT 11.3 (9.0-11.6) sec INR 1.07 VBG pH 7.409 (7.330-7.430) VBG pCO2 40.5 (40.0-52.0) mmHg Sodium 141 (136-145) mmol/L Potassium 4.4 (3.5-5.1) mmol/L Chloride 104 (98-107) mmol/L Carbon Dioxide 28.1 (21.0-32.0) mmol/L Anion Gap 13.3 BUN 5.0 L (7.0-18.0) mg/dL Creatinine 0.98 (0.55-1.02) mg/dL Est GFR ( Amer) >60 (>=60 mL/min/1.73m^2) Est GFR (Non-Af Amer) 60 (>=60 mL/min/1.73m^2) BUN/Creatinine Ratio 5.1 Glucose 95 (74-106) mg/dL Lactate 1.3 (0.4-2.0) mmol/L Calcium 9.1 (8.5-10.1) mg/dL Total Bilirubin 0.5 (0.2-1.0) mg/dL AST 18 (15-37) U/L ALT 26 (14-59) U/L Alkaline Phosphatase 182 H (46-116) U/L Total Creatine Kinase 43 (26-192) U/L Troponin I High Sens <4.0 L (4.0-51.3) pg/mL Total Protein 7.8 (6.4-8.2) g/dL Albumin 3.6 (3.4-5.0) g/dL Globulin 4.2 g/dL Albumin/Globulin Ratio 0.9 Salicylates 5.3 (<=19.9) mg/dL Urine Opiates Screen Negative (NEGATIVE) Ur Buprenorphine Scrn Positive A (NEGATIVE) Ur Oxycodone Screen Negative (NEGATIVE) Urine Methadone Screen Negative (NEGATIVE) Acetaminophen <2.0 L (10.0-30.0) ug/mL Ur Barbiturates Screen Negative (NEGATIVE) U Tricyclic Antidepress Negative (NEGATIVE) Ur Phencyclidine Scrn Negative (NEGATIVE) Ur Amphetamines Screen Negative (NEGATIVE) U Methamphetamines Scrn Negative (NEGATIVE) U Benzodiazepines Scrn Positive A (NEGATIVE) Urine Cocaine Screen Negative (NEGATIVE) U Cannabinoids Screen Negative (NEGATIVE) Ethanol Quant <3 mg/dL POC Glucose 93 (74-106) mg/dL ECG Data Attestation: I personally reviewed and interpreted this ECG as follows: (EKG interpretation. Normal sinus rhythm at 81 beats a minute. Normal axis deviation. No acute ST elevation, no acute ectopy. QTc of 406.) Discharge Plan Discharge Chief Complaint: Altered Mental Status Clinical Impression: Fall, Unresponsive episode Condition: Fair Prescriptions / Home Meds: No Action gabapentin 800 mg tablet 800 mg PO TID tizanidine 4 mg tablet 4 mg PO Q8H PRN (Reason: muscle spasticity) potassium chloride 20 mEq tablet,ER particles/crystals 20 meq PO DAILY Rx Instructions: 10/01/24 FOR 7 DAYS sulfamethoxazole-trimethoprim 800-160 mg tablet 1 tab PO Q12H Rx Instructions: 10/01/24 FOR 7 DAYS buprenorphine-naloxone 8-2 mg film 1 film sublingual Q8H Print Language: Yi Additional Instructions: Continue to follow-up with your neurosurgeon at [facility]. Continue with your pain regimen management. Pain management information has been given to you from [facility] pain management as well as discussed at bedside with you and your . We have had a evaluation by mental health partners from [facility], their information has been provided as well. You have also been given information on rehabilitation from [facility]errals: [facility] [Physician] - 1 week Physician,Non-Staff, MD [Primary Care Provider] - 1 week
--- NOTE | 2024-10-05 10:29 | CT_ITS ---
The [address] [address] Patient Name: MORALES LEE MRN: [id number] date: 1975 Sex: F Assigned Patient Location: ER Current Patient Location: ER Accession/Order Number: [id number] Exam Date: 10/05/2024 10:32 Report Date: 10/05/2024 11:14 At the request of: MICHAEL SORIA Procedure: CT cervical spine wo con PROCEDURE: CT thoracic spine wo con, CT cervical spine wo con COMPARISON: 06/08/2023 HISTORY: fall TECHNIQUE: Axial, Coronal, and Sagittal CT images obtained without IV contrast. Dose reduction techniques were achieved by using automated exposure control and/or adjustment of mA and/or kV according to patient size and/or use of iterative reconstruction technique. FINDINGS: PARASPINAL AREA: Normal with no visible mass. DISCS: Interbody fusion C6-C7. Mild multilevel disc space narrowing BONES: Normal alignment of the cervical and thoracic vertebral bodies with no acute fracture or spondylolisthesis. Anterior fusion with a plate and screws C6-C7 with no mechanical failure. Posterior decompression and transpedicular fusion of the lumbosacral spine. There is stable 40% anterior wedge compression fracture of the L1 vertebral body. Mild diffuse degenerative spondylosis and facet osteoarthropathy. OTHER: Negative. CT/CT cervical spine wo con IMPRESSION: No acute traumatic abnormality of the cervical or thoracic spine Electronically authenticated by: ARIADNA STEWART Date: 10/05/2024 11:14
--- NOTE | 2024-10-05 10:30 | PC.NURSE ---
Poison control called for professional consult, pt possibly took 14 of her husbands Ativan, pt spouse was prescribed 14 Ativan 10/02, pt was found at home on floor with empty Ativan bottle at her side. Per Poison Control, pt should have lab work up and monitored for 6 hours
--- NOTE | 2024-10-05 10:30 | PC.NURSE ---
pt spouse at bedside, he appears angry, stating if we are not going to admit her for benzodiazepine withdrawal he will just take her home and someone will be liable for what happens to her pt spouse updated on plan of care. Elisabeth with social work therapist will be here christina to speak with pt.
[2024-10-05 10:31] LABS: Basophils Absolute Auto 0.1 10^3/uL (0.0-0.1); Basophils Percent Auto 0.9 % (0.2-2.0); Eosinophils Absolute Auto 0.3 10^3/uL (0.0-0.7); Eosinophils Percent Auto 3.2 % (0.9-7.0); Hematocrit 45.6 % (36.0-48.0); Immature Granulocytes Abs Auto 0.02 10^3/uL (0.00-0.03); Immature Granulocytes Pct Auto 0.3 % (0.0-0.5); Lymphocytes Absolute Auto 2.5 10^3/uL (1.2-3.8); Lymphocytes Percent Auto 32.5 % (20.5-60.0); Mean Corpuscular HGB Conc 32.9 g/dL (29.9-35.2); Mean Corpuscular Hemoglobin 28.4 pg (26.7-34.0); Mean Corpuscular Volume 86.4 fL (81.0-99.0); Mean Platelet Volume 9.7 fL (9.5-13.5); Monocytes Absolute Auto 0.4 10^3/uL (0.3-0.8); Monocytes Percent Auto 5.5 % (1.7-12.0); Neutrophils Absolute Auto 4.5 10^3/uL (1.4-6.5); Neutrophils Percent Auto 57.6 % (43.0-75.0); Platelet Count 277 10^3/uL (150-450); Red Blood Count 5.28 10^6/uL (4.20-5.40); Red Cell Distribution Width 16.4 % (11.0-15.0); White Blood Count 7.8 10^3/uL (4.0-11.0)
[2024-10-05 10:32] LABS: PCO2 VBG 40.5 mmHg (40.0-52.0); pH VBG 7.409 (7.330-7.430)
--- NOTE | 2024-10-05 10:40 | PC.NURSE ---
attempted to start iv x 3 without success, pt tolerated well,pt states she is a hard stick, you will not get iv . pt tearful and rambling words about previous ER visits.
--- NOTE | 2024-10-05 10:42 | PC.NURSE ---
urine spec obtained by clamping catheter and spec obtained by sterile syringe
--- NOTE | 2024-10-05 10:47 | PC.NURSE ---
pt speaking with [facility] at this time on phone
[2024-10-05 10:51] LABS: INR 1.07; Prothrombin Time 11.3 sec (9.0-11.6)
[2024-10-05 10:54] LABS: Alanine Aminotransferase 26 U/L (14-59); Albumin Globulin Ratio 0.9; Albumin Level 3.6 g/dL (3.4-5.0); Alkaline Phosphatase 182 U/L (46-116); Anion Gap 13.3; Aspartate Amino Transferase 18 U/L (15-37); BUN Creatinine Ratio 5.1; Bilirubin Total 0.5 mg/dL (0.2-1.0); Calcium 9.1 mg/dL (8.5-10.1); Carbon Dioxide 28.1 mmol/L (21.0-32.0); Chloride 104 mmol/L (98-107); Estimated GFR (African America >60 (>=60 mL/min/1.73m^2); Estimated GFR (Non-African Ame 60 (>=60 mL/min/1.73m^2); Globulin 4.2 g/dL; Glucose 95 mg/dL (74-106); Potassium 4.4 mmol/L (3.5-5.1); Sodium 141 mmol/L (136-145); Total Protein 7.8 g/dL (6.4-8.2); Troponin I High Sensitivity <4.0 pg/mL (4.0-51.3)
[2024-10-05 10:59] LABS: Lactate/Lactic Acid 1.3 mmol/L (0.4-2.0)
--- NOTE | 2024-10-05 11:06 | PC.NURSE ---
[facility] will be doing an evaluation on pt, they will either send someone in person or do a telehealth, Grisel was hopeful that they could send a person out
[2024-10-05 11:07] LABS: Creatine Kinase 43 U/L (26-192); Salicylate 5.3 mg/dL (<=19.9)
[2024-10-05 11:18] LABS: Acetaminophen <2.0 ug/mL (10.0-30.0)
[2024-10-05 11:19] LABS: Ethanol <3 mg/dL
--- NOTE | 2024-10-05 11:42 | PC.NURSE ---
Dr Jacobson at bedside having lengthy conversation with pt about her care now and plan for discharge
--- NOTE | 2024-10-05 11:53 | PC.NURSE ---
poison control calls to check in with pt, they recommend repeat salicylate level in 4 hours from initial lab draw.
--- NOTE | 2024-10-05 12:47 | SWNOTE1 ---
JT was called in regards to pt needing inpt rehab for Benzo withdrawal and major depressive disorder, but [facility] does not take wheelchairs. [facility] JT went down and spoke to pt and she was talking about her pain, her experience with a [employer], an she voiced she was just tired of telling her story over and over. During conversation, Jessie Rodriguez came in and had the [facility] on the computer. JT advised the staff to call if SW is needed.
--- NOTE | 2024-10-05 14:03 | PC.NURSE ---
pt and pt spouse updated on plan of care, [facility] is continuing to work on in patient rehab
[2024-10-05 14:13] LABS: Amphetamine Screen Urine NEGATIVE (NEGATIVE); Barbiturates Screen Urine NEGATIVE (NEGATIVE); Benzodiazepines Screen Urine POSITIVE (NEGATIVE); Buprenorphine Screen Urine POSITIVE (NEGATIVE); Cannabinoid Screen Urine NEGATIVE (NEGATIVE); Cocaine Screen Urine NEGATIVE (NEGATIVE); Methadone Screen Urine NEGATIVE (NEGATIVE); Methamphetamines Screen Urine NEGATIVE (NEGATIVE); Opiate Screen Urine NEGATIVE (NEGATIVE); Oxycodone Screen Urine NEGATIVE (NEGATIVE); Phencyclidine Screen Urine NEGATIVE (NEGATIVE); Tricyclic Antidepressant Urine NEGATIVE (NEGATIVE)
[2024-10-05] MEDS: LORAZEPAM 2 MG/ML VIAL 1 MG IV (14:36)
--- NOTE | 2024-10-05 15:00 | PC.NURSE ---
Savannah from [facility] called to say she would be taking over pt case, she is attempting to get pt into [facility] in [facility] will call to do pt interview over phone call
--- NOTE | 2024-10-05 15:30 | PC.NURSE ---
Spoke with Sabas at [facility], he will do intake phone conversation at this time.
--- NOTE | 2024-10-05 16:22 | PC.NURSE ---
Per [facility], they are not able to accept this pt at this time due to her disability and nursing needs
--- NOTE | 2024-10-05 16:40 | PC.NURSE ---
Dr bran and this RN at bedside to update pt and pt spouse on plan of care, [facility] is attempting to get acceptance at [facility] in [place], at this time [facility] cannot take pt due to her disability needs
--- NOTE | 2024-10-05 16:45 | PC.NURSE ---
pt ask this nurse if it would be benifical if Dr Jacobson was to write a prescription for Valium and I try to get to my surgeon in [place] as soon as possible . This RN tells pt, that is not advisable and we will continue to work on getting her placed for withdrawal. Dr Jacobson notified of this request.
--- NOTE | 2024-10-05 18:00 | PC.NURSE ---
[facility] called to say they cannot accept pt due to medical needs, Savannah with [facility] notified
--- NOTE | 2024-10-05 20:30 | PC.NURSE ---
Pt had been in ER since this morning. Multiple attempts were made by [facility] to place patient into detox facility, but unfortunately due to pt complex medical situation no place would accept her. Ultimately the decision was made by the physician to discharge patient. This nurse took over pt care at 1900. When notified of discharge, pt was very upset and asked to speak with her who was in waiting room at the time. This nurse informed him that pt was being discharged and there was no place that could accept her at this time due to her complex medical needs. Pt became increasingly angry saying we never do anything to help the patient and that he would be up to the hospital Tuesday to speak with individuals [facility] regarding the situation. This nurse informed patient and that physician ultimately made the decision that patient was stable for discharge and pt was provided discharge instructions along with a copy of her CT scan from earlier today. this nurse helped assist pt to get dressed and wheeled pt out to daughter's car via wheelchair.
== END 2024-10-05 20:30 | disposition home or self-care (01) ==
PROVIDERS: Emergency Provider Emergency Medicine
DX: R40.4 Transient alteration of awareness (principal); Z87.440 Personal history of urinary (tract) infections; F17.200 Nicotine dependence, unspecified, uncomplicated; Z91.81 History of falling; Z98.1 Arthrodesis status; N39.0 Urinary tract infection, site not specified; K02.9 Dental caries, unspecified; F11.91 Opioid use, unspecified, in remission; Z93.59 Other cystostomy status
CPT/HCPCS: 36415; 70450; 71045; 72125; 72128; 80053; 80179; 80307; 80320; 80329; 82550; 82800; 83605; 84484; 85025; 85610; 87086; 93005; 96374; 99285; J0574; J2060; Q0162

== ENCOUNTER 2025-04-30 11:47 | Emergency (ER) | payer BC, SELFPAY ==
--- OUTSIDE RECORDS SUMMARY | 2024-10-16 11:28 | XMS_ITS | Continuity of Care Document ---
Author Organization [facility] Address [address] [place] [address] Phone Care Team Providers Care Family Services Assistant Name Role Phone Adam Hunter DO Unavailable [...] or swallowing 2 film - Active F11.10 [id number] tizanidine 4 mg tablet take 1 tablet [...] Diagnoses Date Provider Providers Copied on Encounter [facility], [address] [place] [address], [id number] , [place] tel: [phone] [facility] No Information 5 Plank DO Adam. [address] [place] [address], [id number] , [place]. tel: [phone] [facility], [address] [place] [address], [id number] , [place] tel: [phone] [facility] Encounter for screening colonoscopy 5 Plank DO Adam. [address] [place] [address], [id number] , [place]. tel: [phone] [facility], [address] [place] [address], [id number] , [place] tel: [phone] [facility] Encounter for screening for cervical cancer 5 Plank DO Adam. [address] [place] [address], [id number] , [place]. tel: [phone] [facility], [address] [place] [address], [id number] , [place] tel: [phone] [facility] No Information 4 Plank DO Adam. [address] [place], [place], [id number] , [place]. tel: [phone] OFFICE/OUTPA TIENT VISIT, [facility], [address] [place], [place], [id number] , [place] tel: [phone] [facility] Establish Care (chief complaint) Lab Draw (chief complaint) Need for hepatitis C screening testEncounter for screening for HIVDiabetes mellitus screeningLipid screeningPostlamine ctomy syndrome, not elsewhere classifiedNicotine dependence, unspecified, uncomplicatedUnspec ified urinary incontinenceOther reduced mobility 4 Plank DO Adam. [address] [place], [place], [id number] , [place]. tel: [phone] [facility], [address] [place] [address], [id number] , [place] tel: [phone] [facility] Opioid use, unspecified, uncomplicated 2 Wesly Beyer. [address] [place], [address], [place]. tel: [phone] [facility], [address] [place] [address], [id number] , [place] tel: [phone] [facility] Opioid use, unspecified, uncomplicatedDepres dm NOSGeneralized anxiety disorder 2 Wesly Hillcy. [address] [place] [address], [address], [place]. tel: [phone] OFFICE/OUTPA TIENT VISIT, [facility], [address] [place], [place], [id number] , [place] tel: [phone] [facility] Suboxone (chief complaint) Opioid dependence, uncomplicatedBody mass index [BMI] 39.0-39.9, adult 1 Pavlock DO Max. [address] [place], [place], [id number] , [place]. tel: [phone] OFFICE/OUTPA TIENT VISIT, [facility], [address] [place], [place], [id number] , [place] tel: [phone] [facility] f/u (chief complaint) Body mass index [BMI]40.0-44.9, adultOpioid dependence, uncomplicated Jun- 1 [facility]. [address] [place] [address], [id number] , [place]. tel: [phone] OFFICE/OUTPA TIENT VISIT, EST [facility], [address] [place], [place], [id number] , [place] tel: [phone] [facility] Suboxone (chief complaint) Body mass index [BMI]40.0-44.9, adultCompression fracture of L1 vertebra, sequelaLow back pain, unspecified 1 [facility]. [address] [place], [place], [id number] , [place]. tel: [phone] [facility], [address] [place] [address], [id number] , [place] tel: [phone] [facility] Low back pain associated with a spinal disorder other than radiculopathy or spinal stenosis Sep-2 1 [facility]. [address] [place], [place], [id number] , [place]. tel: [phone] PSYTX PT&/FAMILY 60 MINUTES [facility], [address] [place] [address], [id number] , [place] tel: [phone] [facility] Opioid use, unspecified, uncomplicatedDepres dm NOSGeneralized anxiety disorder May-0 1 Wesly Beyer. [address] [place] [address], [address], [place]. tel: [phone] OFFICE/OUTPA TIENT VISIT, [facility], [address] [place] [address], [id number] , [place] tel: [phone] [facility] Suboxone (chief complaint) Body mass index [BMI]40.0-44.9, adultLow back pain associated with a spinal disorder other than radiculopathy or spinal stenosisOpioid dependence, uncomplicatedAnxiet y Sep- 1 [facility] Max. [address] [place], [place], [id number] , [place]. tel: [phone] OFFICE/OUTPA TIENT VISIT, [facility], [address] [place], [place], [id number] , [place] tel: [phone] [facility] Suboxone (chief complaint) Wound of skinAnxietyOpioid dependence, uncomplicated 1 [facility] Max. [address] [place], [place], [id number] , [place]. tel: [phone] [facility], [address] [place], [place], [id number] , [place] tel: [phone] [facility] Opioid use, unspecified, uncomplicatedDepres dm NOSGeneralized anxiety disorder 1 Wesly Beyer. [address] [place] [address], [address], [place]. tel: [phone] OFFICE/OUTPA TIENT VISIT, [facility], [address] [place], [place], [id number] , [place] tel: [phone] [facility] Suboxone (chief complaint) UDS (chief complaint) Opioid dependence, uncomplicatedBody mass index [BMI]40.0-44.9, adultAnxietyCompres dm fracture of L1 vertebra, sequela 1 [facility]. [address] [place], [place], [id number] , [place]. tel: [phone] PSYTX PT&/FAMILY 60 MINUTES [facility], [address] [place], [place], [id number] , [place] tel: [phone] [facility] Opioid use, unspecified, uncomplicatedDepres dm NOSGeneralized anxiety disorder 1 Wesly Beyer. [address] [place] [address], [address], [place]. tel: [phone] OFFICE/OUTPA TIENT VISIT, [facility], [address] [place], [place], [id number] , [place] tel: [phone] [facility] SUBOXONE (chief complaint) UDS (chief complaint) Body mass index [BMI]40.0-44.9, adultOpioid dependence, uncomplicatedAnxiet yCompression fracture of L1 vertebra, sequela 1 [facility] Max. [address] [place], [place], [id number] , [place]. tel: [phone] OFFICE/OUTPA TIENT VISIT, [facility], [address] [place], [place], [id number] , [place] tel: [phone] [facility] SUBOXONE (chief complaint) UDS (chief complaint) Body mass index [BMI] 39.0-39.9, adultAnxietyEdema extremitiesOpioid dependence, uncomplicatedCompre ssion fracture of L1 vertebra, sequela 1 [facility]. [address] [place], [place], [id number] , [place]. tel: [phone] OFFICE/OUTPA TIENT VISIT, [facility], [address] [place], [place], [id number] , [place] tel: [phone] [facility] Suboxone (chief complaint) Body mass index [BMI] 39.0-39.9, adultOpioid dependence, uncomplicatedCompre ssion fracture of L1 vertebra, sequela 1 [facility]. [address] [place], [place], [id number] , [place]. tel: [phone] PSYTX PT&/FAMILY 60 MINUTES [facility], [address] [place], [place], [id number] , [place] tel: [phone] [facility] Opioid use, unspecified, uncomplicatedDepres dm NOSGeneralized anxiety disorder 1 Wesly Beyer. [address] [place], [address], [place]. tel: [phone] OFFICE/OUTPA TIENT VISIT, [facility], [address] [place] [address], [id number] , [place] tel: [phone] [facility] SUBOXONE (chief complaint) UDS (chief complaint) Opioid use, unspecified, uncomplicatedBody mass index [BMI]40.0-44.9, adultUrinary hesitancyTobacco abuseAnxiety 1 [facility]. [address] [place] [address], [id number] , [place]. tel: [phone] OFFICE/OUTPA TIENT VISIT, [facility], [address] [place] [address], [id number] , [place] tel: [phone] [facility] Suboxone (chief complaint) UDS (chief complaint) Opioid dependence, uncomplicatedBody mass index [BMI]40.0-44.9, adultCompression fracture of L1 vertebra, sequela 1 [facility]. [address] [place] [address], [id number] , [place]. tel: [phone] PSYTX PT&/FAMILY 60 MINUTES [facility], [address] [place] [address], [id number] , [place] tel: [phone] [facility] Opioid use, unspecified, uncomplicatedDepres dm NOSGeneralized anxiety disorder 1 Wesly Beyer. [address] [place] [address], [address], [place]. tel: [phone] [facility], [address] [place] [address], [id number] , [place] tel: [phone] [facility] Opioid use, unspecified, uncomplicatedDepres dm NOSGeneralized anxiety disorder 1 Wesly Beyer. [address] [place] [address], [address], [place]. tel: [phone] OFFICE/OUTPA TIENT VISIT, [facility], [address] [place] [address], [id number] , [place] tel: [phone] [facility] Suboxone (chief complaint) UDS (chief complaint) Opioid dependence, uncomplicatedBody mass index [BMI]40.0-44.9, adultUrinary hesitancyNerve pain 1 Pavlock DO Max. [address] [place], [place], [id number] , [place]. tel: [phone] PSYTX PT&/FAMILY 60 MINUTES [facility], [address] [place], [place], [id number] , [place] tel: [phone] [facility] Opioid use, unspecified, uncomplicatedDepres dm NOSGeneralized anxiety disorder 1 Wesly Beyer. [address] [place], [address], [place]. tel: [phone] [facility], [address] [place], [place], [id number] , [place] tel: [phone] [facility] Opioid use, unspecified, uncomplicatedDepres dm NOSGeneralized anxiety disorder 0 Wesly Beyer. [address] [place], [address], [place]. tel: [phone] OFFICE/OUTPA TIENT VISIT, [facility], [address] [place], [place], [id number] , [place] tel: [phone] [facility] Suboxone (chief complaint) UDS (chief complaint) Body mass index [BMI]40.0-44.9, adultOpioid dependence, uncomplicatedAnxiet y 0 Pavlock DO Max. [address] [place], [place], [id number] , [place]. tel: [phone] PSYTX PT&/FAMILY 60 MINUTES [facility], [address] [place], [place], [id number] , [place] tel: [phone] [facility] Opioid use, unspecified, uncomplicatedDepres dm NOSGeneralized anxiety disorder 0 Wesly Beyer. [address] [place] [address], [address], [place]. tel: [phone] OFFICE/OUTPA TIENT VISIT, [facility], [address] [place], [place], [id number] , [place] tel: [phone] [facility] Suboxone (chief complaint) depression (chief complaint) Opioid dependence, uncomplicatedBody mass index [BMI]40.0-44.9, adultAnxietyUrinary tract infection without hematuria, site unspecified 0 [facility] DO Max. [address] [place], [place], [id number] , [place]. tel: [phone] PSYTX PT&/FAMILY 60 MINUTES [facility], [address] [place], [place], [id number] , [place] tel: [phone] [facility] Opioid use, unspecified, uncomplicatedDepres dm NOSGeneralized anxiety disorder 0 Wesly Beyer. [address] [place], [address], [place]. tel: [phone] OFFICE/OUTPA TIENT VISIT, [facility], [address] [place] [address], [id number] , [place] tel: [phone] [facility] Suboxone (chief complaint) UDS (chief complaint) Opioid dependence, uncomplicatedBody mass index [BMI]40.0-44.9, adultCompression fracture of L1 vertebra, sequelaAnxiety 0 [facility] DO Max. [address] [place], [place], [id number] , [place]. tel: [phone] PSYTX PT&/FAMILY 60 MINUTES [facility], [address] [place] [address], [id number] , [place] tel: [phone] [facility] Op[facility]id use, unspecified, uncomplicatedDepres dm NOSGeneralized anxiety disorder 0 Wesly Beyer. [address] [place], [address], [place]. tel: [phone] OFFICE/OUTPA TIENT VISIT, [facility], [address] [place] [address], [id number] , [place] tel: [phone] [facility] Suboxone (chief complaint) UDS (chief complaint) Opioid dependence, uncomplicatedBody mass index (BMI) 40.0-44.9, adultEdema extremitiesAnxiety 0 Pavlock DO Max. [address] [place], [place], [id number] , [place]. tel: [phone] PSYTX PT&/FAMILY 60 MINUTES [facility], [address] [place], [place], [id number] , [place] tel: [phone] [facility] Opioid use, unspecified, uncomplicatedDepres dm NOSGeneralized anxiety disorder 0 Wesly Beyer. [address] [place], [address], [place]. tel: [phone] [facility], [address] [place] [address], [id number] , [place] tel: [phone] [facility] No Information 0 Wesly Beyer. [address] [place] [address], [address], [place]. tel: [phone] OFFICE/OUTPA TIENT VISIT, [facility], [address] [place] [address], [id number] , [place] tel: [phone] [facility] Suboxone (chief complaint) UDS (chief complaint) back pain (chief complaint) Uncomplicated opioid abuseBody mass index (BMI) 40.0-44.9, adultAnxietyCompres dm fracture of L1 vertebra, sequela 0 Pavlock DO Max. [address] [place], [place], [id number] , [place]. tel: [phone] PSYTX PT&/FAMILY 60 MINUTES [facility], [address] [place] [address], [id number] , [place] tel: [phone] [facility] Opioid use, unspecified, uncomplicatedDepres dm NOSGeneralized anxiety disorder 0 Wesly Beyer. [address] [place] [address], [address], [place]. tel: [phone] OFFICE/OUTPA TIENT VISIT, [facility], [address] [place] [address], [id number] , [place] tel: [phone] [facility] Suboxone (chief complaint) UDS (chief complaint) depression (chief complaint) Uncomplicated opioid abuseBody mass index (BMI) 40.0-44.9, adultAnxietyDepress ion NOSDental abscess 0 Pavlock DO Max. [address] [place], [place], [id number] , [place]. tel: [phone] PSYTX PT&/FAMILY 60 MINUTES [facility], [address] [place] [address], [id number] , [place] tel: [phone] [facility] Opioid use, unspecified, uncomplicatedDepres dm NOSGeneralized anxiety disorder 0 Wesly Beyer. [address] [place] [address], [address], [place]. tel: [phone] [facility], [address] [place] [address], [id number] , [place] tel: [phone] [facility] No Information 0 Wesly Beyer. [address] [place] [address], [address], [place]. tel: [phone] [facility], [address] [place] [address], [id number] , [place] tel: [phone] [facility] Urinary hesitancy 0 Pavlock DO Max. [address] [place], [place], [id number] , [place]. tel: [phone] OFFICE/OUTPA TIENT VISIT, EST [facility], [address] [place] [address], [id number] , [place] tel: [phone] [facility] Suboxone (chief complaint) UDS (chief complaint) Urinary symptoms (chronic) (chief complaint) Uncomplicated opioid abuseBody mass index (BMI) 40.0-44.9, adultLow back pain associated with a spinal disorder other than radiculopathy or spinal stenosisUrinary hesitancy 0 Pavlock DO Max. [address] [place], [place], [id number] , [place]. tel: [phone] PSYCH DIAGNOSTIC EVALUATION [facility], [address] [place], [place], [id number] , [place] tel: [phone] [facility] Opioid use, unspecified, uncomplicatedDepres dm NOSGeneralized anxiety disorder 0 Wesly Beyer. [address] [place], [address], [place]. tel: [phone] OFFICE/OUTPA TIENT VISIT, [facility], [address] [place], [place], [id number] , [place] tel: [phone] [facility] Swelling (chief complaint) Urinary tract infection without hematuria, site unspecified 0 Pavlock DO Max. [address] [place], [place], [id number] , [place]. tel: [phone] OFFICE/OUTPA TIENT VISIT, [facility], [address] [place], [place], [id number] , [place] tel: [phone] [facility] SUBOXONE (chief complaint) Drug Screen (chief complaint) depression (chief complaint) Uncomplicated opioid abuseBody mass index (BMI) 40.0-44.9, adultAnxietyPrimary osteoarthritis, unspecified site 0 Pavlock DO Max. [address] [place] [address], [id number] , [place]. tel: [phone] OFFICE/OUTPA TIENT VISIT, [facility], [address] [place], [place], [id number] , [place] tel: [phone] [facility] Suboxone (chief complaint) Chest pain (chief complaint) Uncomplicated opioid abuseChest pain at restAnxietyDizzines s 0 Pavlock DO Max. [address] [place], [place], [id number] , [place]. tel: [phone] OFFICE/OUTPA TIENT VISIT, [facility], [address] [place], [place], [id number] , [place] tel: [phone] [facility] SUBOXONE (chief complaint) DRUG SCREEN (chief complaint) Uncomplicated opioid abuseChronic GERD Dec- 0 Pavlock DO Max. [address] [place], [place], 192734118 , [place]. tel:[phone] OFFICE/OUTPA TIENT VISIT, [facility], [address] [place], [place], [id number] , [place] tel: [phone] [facility] SUBOXONE (chief complaint) UDS (chief complaint) Dizziness (chief complaint) Body mass index (BMI) 40.0-44.9, adultUncomplicated opioid abuseDizzinessEdema extremities Nov- 0 Pavlock DO Max. [address] [place], [place], [id number] , [place]. tel: [phone] OFFICE/OUTPA TIENT VISIT, [facility], [address] [place], [place], [id number] , [place] tel: [phone] [facility] SUBOXONE (chief complaint) DRUG SCREEN (chief complaint) Dizziness (chief complaint) Body mass index (BMI) 40.0-44.9, adultUncomplicated opioid abuseAnxietyTobacco abuse Fe 0 Pavlock DO Max. [address] [place], [place], 859706351 , [place]. tel: [phone] OFFICE/OUTPA TIENT VISIT, [facility], [address] [place], [place], [id number] , [place] tel: [phone] [facility] SUBOXONE (chief complaint) DRUG SCREEN (chief complaint) Swelling (chief complaint) Uncomplicated opioid abuseBody mass index (BMI) 40.0-44.9, adultAnxietyInsomni a, unspecified typeEdema extremities 0 Pavlock DO Max. [address] [place], [place], [id number] , [place]. tel:[phone] OFFICE/OUTPA TIENT VISIT, [facility], [address] [place], [place], [id number] , [place] tel: [phone] [facility] SUBOXONE (chief complaint) DRUG SCREEN (chief complaint) Uncomplicated opioid abuseBody mass index (BMI) 40.0-44.9, adultAnxietyTobacco abuse 9 [facility] [address] [place], [place], [id number] , [place]. tel: [phone] OFFICE/OUTPA TIENT VISIT, [facility], [address] [place], [place], [id number] , [place] tel: [phone] [facility] SUBOXONE (chief complaint) DRUG SCREEN (chief complaint) back pain (chief complaint) Uncomplicated opioid abuseBody mass index (BMI) 38.0-38.9, adultTobacco abuseAnxietyBronchi tisLow back pain associated with a spinal disorder other than radiculopathy or spinal stenosis 9 [facility]. [address] [place], [place], [id number] , [place]. tel: [phone] OFFICE/OUTPA TIENT VISIT, [facility], [address] [place], [place], 249301395 , [place] tel: [phone] [facility] SUBOXONE (chief complaint) DRUG SCREEN (chief complaint) Uncomplicated opioid abuseBody mass index (BMI) 38.0-38.9, adultLow back pain associated with a spinal disorder other than radiculopathy or spinal stenosis 9 [facility] DO [place]. [address] [place], [place], [id number] , [place]. tel: [phone] OFFICE/OUTPA TIENT VISIT, [facility], [address] [place], [place], [id number] , [place] tel: [phone] [facility] SUBOXONE (chief complaint) DRUG SCREEN (chief complaint) Degenerative disc disease, cervicalCompression fracture of L1 vertebra, sequelaLow vitamin D levelAnxietyUncompl icated opioid abuseBody mass index (BMI) 38.0-38.9, adult 9 [facility] Max. [address] [place], [place], [id number] , [place]. tel: [phone] OFFICE/OUTPA TIENT VISIT, [facility], [address] [place], [place], [id number] , [place] tel: [phone] [facility] SUBOXONE (chief complaint) DRUG SCREEN (chief complaint) back pain (chief complaint) Body mass index (BMI) 39.0-39.9, adultUncomplicated opioid abuseLow back pain associated with a spinal disorder other than radiculopathy or spinal stenosisAnxiety 9 Pavlock DO Max. [address] [place], [place], 072482399 , [place]. tel: [phone] [facility], [address] [place], [place], 984823500 , [place] tel: [phone] [facility] Low back pain associated with a spinal disorder other than radiculopathy or spinal stenosis Pavlock DO Max. [address] [place], [place], 304786843 , [place]. tel: [phone] OFFICE/OUTPA TIENT VISIT, [facility], [address] [place], [place], [id number] , [place] tel: [phone] [facility] SUBOXONE (chief complaint) DRUG SCREEN (chief complaint) Uncomplicated opioid abuseBody mass index (BMI) 39.0-39.9, adultLow back pain associated with a spinal disorder other than radiculopathy or spinal stenosisAnxiety Pavlock DO Max. [address] [place], [place], 063234367 , [place]. tel: [phone] OFFICE/OUTPA TIENT VISIT, [facility], [address] [place], [place], 736473298 , [place] tel: [phone] [facility] SUBOXONE (chief complaint) DRUG SCREEN (chief complaint) Uncomplicated opioid abuseBody mass index (BMI) 39.0-39.9, adultAnxietyDegener ative disc disease, cervicalLow back pain associated with a spinal disorder other than radiculopathy or spinal stenosis 9 Pav[facility] DO Max. [address] [place], [place], 174673976 , [place]. tel: [phone] OFFICE/OUTPA TIENT VISIT, [facility], [address] [place], [place], [id number] , [place] tel: [phone] [facility] SUBOXONE (chief complaint) DRUG SCREEN (chief complaint) Body mass index (BMI) 38.0-38.9, adultUncomplicated opioid abuseAnxiety [facility]. [address] [place], [place], 956763501 , [place]. tel: [phone] OFFICE/OUTPA TIENT VISIT, [facility], [address] [place] [address], [id number] , [place] tel: [phone] [facility] SUBOXONE (chief complaint) DRUG SCREEN (chief complaint) Body mass index (BMI) 39.0-39.9, adultUncomplicated opioid abuseAnxietyLow back pain associated with a spinal disorder other than radiculopathy or spinal stenosis 9 [facility]. [address] [place] [address], [id number] , [place]. tel: [phone] OFFICE/OUTPA TIENT VISIT, [facility], [address] [place], [place], [id number] , [place] tel: [phone] [facility] SUBOXONE (chief complaint) DRUG SCREEN (chief complaint) Body mass index (BMI) 40.0-44.9, adultBronchitisDege nerative disc disease, cervicalAnxietyUnco mplicated opioid abuse 9 [facility]. [address] [place], [place], [id number] , [place]. tel: [phone] [facility], [address] [place] [address], [id number] , [place] tel: [phone] [facility] Suboxone (chief complaint) Drug Screen (chief complaint) Body mass index (BMI) 40.0-44.9, adultAnxietyUncompl icated opioid abuse 9 [facility] Max. [address] [place], [place], [id number] , [place]. tel: [phone] [facility], [address] [place], [place], 980223100 , [place] tel: [phone] [facility] Degenerative disc disease, cervicalLow back pain associated with a spinal disorder other than radiculopathy or spinal stenosis 9 [facility] Max. [address] [place], [place], 154570843 , [place]. tel: [phone] OFFICE/OUTPA TIENT VISIT, EST [facility], [address] [place], [place], [id number] , [place] tel: [phone] [facility] Suboxone (chief complaint) Drug Screen (chief complaint) Body mass index (BMI) 40.0-44.9, adultUncomplicated opioid abuseLow back pain associated with a spinal disorder other than radiculopathy or spinal stenosisAnxiety 9 [facility]. [address] [place], [place], 285853659 , [place]. tel: [phone] [facility], [address] [place], [place], [id number] , [place] tel: [phone] [facility] Suboxone (chief complaint) Drug Screen (chief complaint) Body mass index (BMI) 39.0-39.9, adultUncomplicated opioid abuseInsomnia, unspecified typeAnxiety 9 [facility]. [address] [place], [place], 166853744 , [place]. tel: [phone] [facility], [address] [place] [address], [id number] , [place] tel: [phone] [facility] Drug Screen (chief complaint) Suboxone (chief complaint) Body mass index (BMI) 40.0-44.9, adultDegenerative disc disease, cervicalAnxietyUnco mplicated opioid abuseLow back pain associated with a spinal disorder other than radiculopathy or spinal stenosis 9 [facility] Max. [address] [place], [place], [id number] , [place]. tel: [phone] [facility], [address] [place], [place], 940001817 , [place] tel: [phone] [facility] Suboxone (chief complaint) Drug Screen (chief complaint) Body mass index (BMI) 40.0-44.9, adult 9 [facility] Max. [address] [place], [place], 968903150 , [place]. tel: [phone] OFFICE/OUTPA TIENT VISIT, [facility], [address] [place] [address], [id number] , [place] tel: [phone] [facility] check up (chief complaint) Body mass index (BMI) 40.0-44.9, adultHypertension, unspecified typeEdema extremitiesInsomnia , unspecified typeConstipation due to opioid therapyAdverse effect of other opioids, initial encounter 9 [facility]. [address] [place] [address], [id number] , [place]. tel: [phone] [facility], [address] [place] [address], [id number] , [place] tel: [phone] [facility] Suboxone (chief complaint) drug screen (chief complaint) sick (chief complaint) Uncomplicated opioid abuseBronchitisHype rtension, unspecified typeRaynaud's phenomenon without gangreneDegenerativ e disc disease, cervicalAnxietyBody mass index (BMI) 39.0-39.9, adult 9 [facility]. [address], [place], [id number] , [place]. tel: [phone] [facility], [address], [place], [id number] , [place] tel: [phone] [facility] No Information 9 [facility]. [address] [place] [address], [id number] , [place]. tel:[phone] Family History Family Member Type Diagnosis Age At Onset Mother Problem (finding) hypertension Mother Problem (finding) Blood disorder Immunizations Vaccine Date Status Comments Hep A (adult) administered Source: New Im munization Record Payers Payer name Insurance type Covered libertarian ID Aaron monroy(s) Serjio [id number] [place] [id number] Social History Type Description Quantity Date Captured Comments Alcohol Use Details Unknown Caffeine Use Details Unknown Tobacco Use Status Smoking Status No Information Sex Female Sexual Orientation Straight or heterosexual Sep Gender Identity Female Chief Complaint And Reason For Visit No Information Reason For Referral Reason For Referral No Information Plan Of Treatment Date Type Action Status Goal Lipid panel. Due on 029 due Goal Zoster vaccine ( ). Due [...] Urinalysis due Goal PRAPARE ASSESSMENT. Due on due [...] due Goal FOBT. Due on due Goal Tdap Vaccine. Due on 2024 due Goal ECG. Due on due Goal Urinalysis due Goal Hepatitis C scre ening. Due on due Goal Zoster vaccine ( 1st). Due on due Goal FIT. Due on due Goal Unhealthy drug u se screening. Due on due Goal ECG. Due on due Goal Zoster vaccine ( 1st). Due on due Goal Lipid panel. Due on due Goal Tdap Vaccine. Due on 2024 due Goal Hepatitis C scre ening. Due on due Goal FIT. Due on due Goal FIT-DNA. Due on due Goal Tdap. Due on due Goal CT-Colonography. Due on due Goal PRAPARE ASSESSMENT. Due on due Goal Mammogram. Due on due Goal Colonoscopy. Due on due Goal Influenza vaccine. Due on due Goal Depression scree sridevi. Due on due Goal HPV. Due on due Goal FOBT. Due on due Goal Urinalysis due Goal Depression scree sridevi. Due on due Goal Hepatitis C scre ening. Due on due Goal Tdap Vaccine. Due on 2023 due Goal Tdap. Due on due Goal HPV. Due on due Goal FOBT. Due on due Goal FIT. Due on due Goal Influenza vaccine. Due on due Goal Mammogram. Due on due Goal Lipid panel. Due on due Goal ECG. Due on due Goal CT-Colonography. Due on due Goal Urinalysis due Goal PRAPARE ASSESSMENT. Due on O due Goal FIT-DNA. Due on due Goal Zoster vaccine ( ). Due on due Goal Colonoscopy. Due on due Goal Unhealthy drug u se screening. Due on due Goal Tobacco cessation counseling completed Goal Tobacco cessation counseling completed Goal Depression scree sridevi. Due on due Goal Urinalysis due Goal Influenza vaccine. Due on due Goal Lipid panel. Due on due Goal ECG. Due on due Goal Tdap. Due on due Goal ECG. Due on [...] due Goal Tobacco cessation counseling completed Goal Urinalysis [...] Order: Lab Order B-Type N atriuretic Peptide ([id number]), Ordered on: Ordered Future Order: Lab Order Comp. Me tabolic Panel (14) ([id number]), Ordered on: Ordered History Of Present Illness [...] [facility] [place]. Patient denies any other issues at this time. Patient is not up to date on colonoscopy but would not like to be scheduled at this time. 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 Pt denies [...] TCA. ,above was reviewed and agreed with [facility] UDS UDS-positive for BUP, BZO, [...] Healy ,above was reviewed and agreed with [facility] UDS UDS- positive fo r [...] Xavier. ,above was reviewed and agreed with [facility] SUBOXONE Pt here for Subo [...] december. ,above was reviewed and agreed with [facility] UDS UDS+ BUP, BZO. Cirilo [...] Pt states the called Dr. Kwok at [facility] and he said to call and she is scheduled to see him on 10/16 @ 1:20 in his office. Pt is attending counseling with Kayleen Grant completed, last filled Ambien 09/15, Suboxone 09/13, Valium 09/11TGrodi MARKETING COPYWRITER ,above was reviewed and agreed with [facility] UDS UDS performed, p t + for BUP & BENZOTGrodi MARKETING COPYWRITER Suboxone Pt here today fo r Suboxone [...] Ambien 07/21, Suboxone 07/19 & Valium 07/17TGrodi [employer]ET[employer] UDS UDS performed, p t + for BUP & BENZOTGrodi MARKETING COPYWRITER depression There is worseni ng of previously [...] p t + for BUP & BENZOTGrodi MARKETING COPYWRITER Suboxone Pt here today fo r Suboxone [...] p t + for BUP & BENZOTGrodi MARKETING COPYWRITER back pain The problem is s table. [...] Ambien 03/31, Suboxone 03/27, & Valium 03/21TGrodi MARKETING COPYWRITER UDS UDS performed, p t + for BUP & BENZOTGrodi MARKETING COPYWRITER Suboxone Pt here today fo r Suboxone [...] teeth so she is going to see [facility] on Tuesday at 12:30pm. Pt states [...] Ambien 03/01, Suboxone 02/25 & Valium 02/23TGrodi MARKETING COPYWRITER UDS UDS performed, p t + for BUP & BENZOTGrodi MARKETING COPYWRITER depression This is a follow up visit. [...] Ambien 01/31, Valium 01/27, & Suboxone 01/24TGrodi MARKETING COPYWRITER UDS UDS performed, p t + for BUP & BENZOTGrodi MARKETING COPYWRITER Swelling The swelling occ urred suddenly and [...] for 10 days, Gabapentin 01/13, Ambien 01/01TGrodi MARKETING COPYWRITER Drug Screen Rapid urine drug screen performed, pt + for BUP & BENZOTGrodi MARKETING COPYWRITER depression There is worseni ng of previously [...] [facility]INCE 2016.[facility]. Pt complains of [...] Ambien 01/01, Suboxone 12/21 & Valium 12/19TGrodi [facility] SUBOXONE pt here today fo r Suboxone [...] about this. PT is attending counseling at [facility] in [facility] NEEDS REFILLS ON FLEXERIL, VALIUM, LASIX, LISINOPRIL/HCTZ, MIRALAX, OMEPRAZOLE, ALDACTONE & WELLBUTRIN. OARRS completed last filled Ambien 11/22, Valium 11/24, & Suboxone 11/21TGrodi MARKETING COPYWRITER ,above was reviewed and agreed with [facility] DRUG SCREEN Rapid urine drug screen performed, pt + for BUP & BENZOTGrodi MARKETING COPYWRITER UDS UDS+ BUP, BZO. S Tio RN SUBOXONE Pt here for Subo xone refill. Pt has been on 16mg since 2016. Pt is going to [facility] for counseling. OARRS COMPLETED, LAST [...] ON LISINOPRIL/HCTZ, Pt is attending counseling at [facility] in [place]. Pt was last seen 2/3 for an apt and is rescheduled today at 2PM. OARRS completed, last filled Ambien 10/06, Gabapentin 10/04, Valium 10/01, & Suboxone 09/27TGrodi MARKETING COPYWRITER DRUG SCREEN Rapid urine drug screen performed, pt + for BUP & BENZOTGrodi MARKETING COPYWRITER Swelling The swelling is constant. The severity [...] NICOTINE PATCHES Pt is attending counseling with [facility] in [place]. Pt states she has an apt on TuesdayPt states she has an apt with Dr. Hurt on 10/04. OARRS completed, last filled Valium 09/08, Ambien 09/06, & Suboxone 08/30TGrodi MARKETING COPYWRITER DRUG SCREEN Rapid urine drug screen performed, pt + for BUP & BENZOTGrodi MARKETING COPYWRITER SUBOXONE Pt here today fo r Suboxone film refill. PT HAS BEEN ON 16 MG SINCE 2017. Pt is attending counseling at [facility] in [place]. Talked to Mel from there verifying patients [...] performed, pt + for BUP & BENZOTGrodi MARKETING COPYWRITER back pain Severity level i s moderate-severe. [...] her surgery. Pt states at [facility] will not perform any surgeries on a patient who smokes. Pt states she now needs to quit smoking. Pt is requesting Nicotine Patches. Pt states that she has to be 2 weeks smoke free before they will do the surgery. PT states she switched counseling services. PT states she has an apt today at [facility] in [place]. PT states her dad tried to commit [...] Suboxone 07/19, Gabapentin 07/19, & Valium 07/19TGrodi MARKETING COPYWRITER DRUG SCREEN Rapid urine drug screen performed, pt + for BUP & BENZOTGrodi MARKETING COPYWRITER SUBOXONE Pt here today fo r Suboxone [...] do . Pt is attending counseling at [facility] in [place]. Pt has an apt on 07/25. Told [...] performed, pt + for BUP & BENZOTGrodi MARKETING COPYWRITER SUBOXONE PT here today fo r Suboxone film refill. PT HAS BEE ON 16MG SINCE 06/14/2017Pt is attending counseling at [facility] in [place]. PT was last there on 05/02, missed [...] Performed oral swab on patient today. TGrodi MARKETING COPYWRITER SUBOXONE Pt here today fo r Suboxone film refill. Pt is attending counseling at [facility] in [place]. Pt states she has been to counseling once this month and had to cancel once because of her tooth pain. Pt is rescheduled on 04/28 for an apt. PT states her MRI's were approved, pt states she is going to call today to make an apt. Pt has an apt with [facility] on 06/12Pt states she is [...] Ambien 05/15, Suboxone 04/26 & Gabapentin 04/22TGrodi MARKETING COPYWRITER DRUG SCREEN Rapid urine drug screen performed, pt + for BUP & BENZOTGrodi MARKETING COPYWRITER back pain The problem is s table. It occurs persistently. Location of pain is middle back and lower back. Symptoms are aggravated by coughing and daily activities. SUBOXONE Pt here today fo r Suboxone film refill. PT is attending counseling at [facility] in [place]. Pt was there on March 28 and [...] performed, pt + for BUP & BENZOTGrodi MARKETING COPYWRITER SUBOXONE PT here today fo r Suboxone film refill. PT is attending counseling at [facility] in [place]. PT has a note today from an apt she attended on 03/28 and has another note stating she has 2 more apts on Apr 20 & Apr 30. Pt has her neurology apt on April [address] Summers in [place]. Pt states that within the last 7 [...] performed, pt + for BUP & BENZOTGrodi MARKETING COPYWRITER DRUG SCREEN Rapid urine drug screen performed.Patient positive for BUP & BZO.Fentanyl negativeJanusz Lee SUBOXONE Patient presents for Suboxone refill. Patient is very upset and worried, states her threw out some of her Suboxone films.States she has not been to counseling yet. States she no showed at [facility] and now owes a lot of money. [...] r Suboxone. Pt attended an assessment at [facility] on February 05. Pt has a note that she went on 02/12 for an apt. Pt states she fell on Tuesday and injured her face. She said she went to [place] [facility]. She said she has a headache. [...] first, a reduction may help in the terminologist but the back is the major problem DRUG SCREEN Rapid urine drug screen performed, pt + for BUP & BENZOFentanyl NEGTGrodi MARKETING COPYWRITER SUBOXONE Pt here today fo r Suboxone [...] filled Ambien 01/17, Valium & Suboxone 5/2TGrodi MARKETING COPYWRITER DRUG SCREEN Rapid urine drug screen performed, pt + for BUP, BENZO, Fentanyl POSTGrodi MARKETING COPYWRITER Suboxone Pt here today fo r Suboxone film refill. PT states she is going to counseling at [facility] in [place]. She said she has an apt tomorrow [...] filled Ambien 12/20, Valium & Suboxone /TGrodi MARKETING COPYWRITER ,above was reviewed and agreed with Drug Screen Rapid urine drug screen performed, Pt + for BUP & BenzoFentanyl negTGrodi MARKETING COPYWRITER Suboxone Patient here for Suboxone films. Patient forgot her films today. Also patient is not seeing a counselor at this time but attending meetings in [place].OARRS completed. Last fills- Zlppidem 12.5mg 11/21/18, Diazepam 5mg 11/07/18 and Suboxone 11/07/18. Allen Xavier.Pt is still having a lot of lower back pain and does have larger breast. Drug Screen Urine rapid scre en. Positive for BZO and BUPFentanyl-neg. Allen Xavier. Drug Screen Rapid urine drug screen performed, pt + for Benzo & BuprenorphineFentanyl -TGrodi MARKETING COPYWRITER Suboxone Pt here for Subo xone film [...] Ambien 10/24, Valium & Suboxone / TGrodi MARKETING COPYWRITER Pt states doing well not having any [...] Drug screen pos for Buprenorphine and BZO. CONNER Wright Suboxone Patient here for Suboxone. She [...]
[2025-04-30 11:56] VITALS: BP 107/59; PULSE 70; O2SAT 91; BMI 35.3
--- OUTSIDE RECORDS SUMMARY | 2025-04-30 12:00 | XMS_ITS | Encounter Summary ---
Author Organization [facility] Address [address] [place] [address] Care Team Providers Care Honeycomb Decapper Name Role Phone Kostas Ching MD Primary Care Provider [phone] Gianna Orosco NP Unavailable Unallocated, Noms Provider Primary Care Provi marilu Shaikh SHAHANA Obrien Unavailable [phone] Encounter Details Date Type Department Care Team (Late st Contact Info) Description 05/08/2024 Orders Only [facility] [address] [place] [phone] Gianna Orosco NP Social History Tobacco Use Types Packs/Day Years Used Date Smoking Tobacco: Every Day Cigarettes Passive Smoke Exposure: Current Alcohol Use Standard Drinks/Week Comments Never 0 (1 standard drink = 0.6 oz pur e alcohol) PHQ-2 Answer Date Recorded Patient Health Questionnaire-2 Score 0 02/13/2024 Comments Unknown Sex and Gender Information Value Date Recorded Sex Assigned at Not on file Legal Sex Female 6:45 PM EDT Gender Identity Not on file Sexual Orientation Not on file documented as of this encounter Plan of Treatment Not on file documented as of this encounter Procedures Procedure Name Priority Date/Time Associated Diagnosis Comments XR CHEST 1 VIEW Routine 05/08/2024 7:31 AM EDT documented in this encounter Results * XR chest 1 view (05/08/2024 7:31 AM EDT) Anatomical Region Laterality Modality Chest Radiographic Melinda ging Gianna Orosco STUDIO POTTER IMG XR PROCEDURES Final Result documented in this encounter Visit Diagnoses Not on filedocumented in this encounter Care Teams Honeycomb Decapper Relationship Specialty Start Date End Date Kostas Ching MD [address] [place] [phone] PCP - General Family Medicine 04/12/24 06/03/24 Unallocated, Noms MD [address] [place] [address] PCP - General Family Medicine 06/04/24 Shaikh Obrien MD [address] [place] [phone] PCP - [facility] 11/03/24 Gianna Orosco NP [address] [place] [phone] Nurse Practitioner Family Medicine 04/12/24 documented as of this encounter
--- OUTSIDE RECORDS SUMMARY | 2025-04-30 12:00 | XMS_ITS | Encounter Summary ---
Author Organization [facility] Address [address] [place] [address] Care Team Providers Care Talk Show Host Name Role Phone Shaikh SHAHANA Obrien Primary Care Provider [phone] Kostas Ching MD Primary Care Provider [phone] Gianna Orosco NP Unavailable [phone] Unallocated, Noms Provider Primary Care Provi marilu Shaikh SHAHANA Obrien Unavailable [phone] Encounter Details Date Type Department Care Team (Late st Contact Info) Description 02/06/2024 Orders Only [facility] [address] [place] [phone] Shaikh Obrien MD [address] [place] [phone] Social History Tobacco Use Types Packs/Day Years Used Date Smoking Tobacco: Every Day Cigarettes Alcohol Use Standard Drinks/Week Comments Never 0 (1 standard drink = 0.6 oz pur e alcohol) PHQ-2 Answer Date Recorded Patient Health Questionnaire-2 Score 2 11/01/2023 Comments Unknown Sex and Gender Information Value Date Recorded Sex Assigned at Not on file Legal Sex Female 6:45 PM EDT Gender Identity Not on file Sexual Orientation Not on file documented as of this encounter Plan of Treatment Not on file documented as of this encounter Visit Diagnoses Not on filedocumented in this encounter Care Teams Talk Show Host Relationship Specialty Start Date End Date Shaikh Obrien MD [address] [place] [phone] PCP - General Internal Medicine 11/01/23 04/11/24 Kostas Ching MD [address] [place] [phone] PCP - General Family Medicine 04/12/24 06/03/24 Unallocated, Noms MD [address] [place] [place] [address] PCP - General Family Medicine 06/04/24 Shaikh Obrien MD [address] [place] [phone] PCP - [facility] 11/03/24 Gianna Orosco NP [address] [place] [phone] Nurse Practitioner Family Medicine 04/12/24 documented as of this encounter
--- OUTSIDE RECORDS SUMMARY | 2025-04-30 12:00 | XMS_ITS | Clinical Summary ---
Author Organization [employer] s tem Address [id number] [address] [place] [address] Care Team Providers Care Bus Driver/Monitor Name Role Phone No Pcp, No Pcp Primary Care Provider Unavailabl e Allergies Active Allergy Reactions Criticality Noted Date Comments Codeine Facial Swelling High 04/16/2016 Penicillin Facial Swelling High 04/16/2016 Phenergan Plain Swelling,Facial Swelling High 2015 Quetiapine High 10/01/2024 SEIZURES Medications buprenorphine-n aloxone (SUBOXONE) 8-[address] 3 Film under the tongue daily. 5 Active diclofenac sodium (SOLARAZE) 3 % gel Apply 1 application topically 3 (three) times a day. 5 Active gabapentin (NEURONTIN) 300 mg capsule Take 800 mg by mouth 3 (three) times a day. 5 Active hydrochlorothia zide (MICROZIDE) 12.5 mg capsule Take 12.5 mg by mouth daily. 5 Active polyethylene glycol (MIRALAX) 17 gram packet Take 17 g by mouth daily. 5 Active tiZANidine (ZANAFLEX) 4 mg tablet Take 1 tablet (4 mg total) by mouth every 6 (six) hours as needed for muscle spasms. Active Active Problems Problem Noted Date Diagnosed Date Generalized weakness 10/01/2024 Incomplete emptying of bladder 10/01/2024 Pressure ulcer, buttock 10/01/2024 Overview (10/01/2024): Patient is wheelchair bound with limited mobility due to chronic LBP, b/l LE weakness. Has associated fecal and urinary incontinence. 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 Moderate episode of recurrent major depressive d isorder 11/01/2023 Gait disturbance 06/13/2023 Back pain, chronic 06/20/2019 Opiate addiction 06/20/2019 Cervical spondylosis with radiculopathy 12/09/19 17 Spinal cord compression 12/08/2016 Disease of spinal cord 12/08/2016 Social History Tobacco Use Types Packs/Day Years Used Date Smoking Tobacco: Every Day Cigarettes Smokeless Tobacco: Never Tobacco Cessation:Ready to Q uit: Not Asked; Counseling Given: Not Answered Alcohol Use Standard Drinks/Week Comments Never 0 (1 standard drink = 0.6 oz pur e alcohol) Childcare Answer Date Recorded Childcare Unknown 02/14/2019 Employment Answer Date Recorded Employment Unknown 02/14/2019 Hunger Screening Answer Date Recorded Within the past 12 months we worried whether our food would run out before we got money to buy more. Never True 10/01/2024 Within the past 12 months th e food we bought just didn't last and we didn't have money to get more. Never True 10/01/2024 Purpose - Life Answer Date Recorded Purpose and direction in life Unknown Comments Unknown Sex and Gender Information Value Date Recorded Sex Assigned at Not on file Legal Sex Female 12:05 PM EDT Gender Identity Not on file Sexual Orientation Not on file Last Filed Vital Signs Vital Sign Reading Time Taken Comments Blood Pressure 120/79 10/01/2024 4:15 PM EST Pulse 68 10/01/2024 4:15 PM EST Temperature 36.7 C (98 F) 10/01/2024 8:16 AM EST Respiratory Rate 14 10/01/2024 4:15 PM EST Oxygen Saturation 96% 10/01/2024 4:15 PM EST Inhaled Oxygen Concentration - - Weight 88 kg (194 lb) 10/01/2024 12:23 AM EST Height 152.4 cm (5') 10/01/2024 12:23 AM EST Body Mass Index 37.89 10/01/2024 12:23 AM EST Plan of Treatment Health Maintenance Due Date Last Done Comments Tobacco Counseling 1975 Depression Screening 1985 Adult BMI Follow Up Plan 1991 Pap Smear 1994 Zoster (Shingles) Vaccine (1 of 2) 2023 Influenza Vaccine 05/06/2025 08/27/2024 Adult BMI Screening 10/01/2025 10/01/2024 Tobacco Screening 10/01/2025 10/01/2024 DTaP,Tdap and Td Vaccines (2 - Td or Tdap) 02/21/2030 02/22/2020 Medical Devices Not on file Insurance [employer] Advance Directives * Full Code (Latest Code Status on File) Date Activated Date Inactivated Comments 10/01/2024 4:12 AM 10/01/2024 7:23 PM Care Teams Bus Driver/Monitor Relationship Specialty Start Date End Date No Pcp, No Pcp SILVANA Mcfarlane [address] PCP - General Family Medicine 10/01/24
--- OUTSIDE RECORDS SUMMARY | 2025-04-30 12:00 | XMS_ITS | Clinical Summary ---
Author Organization [facility] Address [address], [address] [place] [address] Care Team Providers Care Donor Support Technician Name Role Phone Shaikh SHAHANA Obrien Primary Care Provider [phone] Allergies Active Allergy Reactions Criticality Noted Date Comments Codeine Other (See Comments),Swelling High 2010 Doxycycline Nausea And Vomiting Low 10/29/2024 Penicillins Swelling High 10/24/2010 Quetiapine Seizure 01/17/2023 Medications buprenorphine-nal oxone (SUBOXONE) 8-[address] 2.5 Film under the tongue daily. 5 Active diazePAM (VALIUM) 5 MG tablet Take 1 tablet by mouth 3 times daily as needed. 9 Active gabapentin (NEURONTIN) 800 MG tablet Take 1 tablet by mouth 3 times daily. 3 Active furosemide (LASIX) 40 MG tablet Take 1 tablet by mouth daily 9 Active polyethylene glycol (GLYCOLAX) 17 GM/SCOOP powder Take 17 g by mouth daily 5 Active zolpidem (AMBIEN CR) 12.5 MG extended release tablet Take 1 tablet by mouth nightly as needed for Sleep. Active Incontinence Supplies (URINARY LEG BAG) MISC Leg bag to be used during the day 1 each 3 Active NYAMYC 279143 UNIT/GM powder apply to affected area three times a day 3 Active ondansetron (ZOFRAN) 4 MG tablet Take 1 tablet by mouth 2 times daily as needed 9 Active tiZANidine (ZANAFLEX) 4 MG tablet take 1 tablet by mouth three times a day if needed for MUSCLE SPASTICITY 3 Active oxyBUTYnin (DITROPAN XL) 15 MG extended release tabletIndications :Bowel and bladder incontinence Take 1 tablet by mouth daily 90 tablet 3 5 Active acyclovir (ZOVIRAX) 5 % CREA Apply topically as needed 5 Active DULoxetine (CYMBALTA) 30 MG extended release capsule Take 1 capsule by mouth 2 times daily Active vitamin D (ERGOCALCIFEROL) 1.25 MG (42960 UT) CAPS capsule Take 1 capsule by mouth Twice a Week 5 Active nicotine (NICODERM CQ) 21 MG/24HR Place 1 patch onto the skin every 24 hours 5 Active fluconazole (DIFLUCAN) 150 MG tablet Take one tablet by mouth, then repeat dose in 72 hours 2 tablet 5 Active Active Problems Problem Noted Date Diagnosed Date Neurogenic bladder 10/29/2024 Constipation 10/29/2024 Bowel and bladder incontinence 10/29/2024 Encounters Date Type Department Care Team Description 04/26/2025 Telephone [facility] UROLOGY Part of [address] [place] [address] Celeste Gardiner APRN - WORM RAISER OTHER 02/04/2025 10:45 AM EDT Office Visit [facility] UROLOGY Part [address] [place] [address] Fred Maurice MD Bowel and bladder incontinence (Primary Dx); Neurogenic bladder; Constipation, unspecified constipation type; Epigastric pain 02/04/2025 Telephone [facility] UROLOGY Part of [address] [place] [address] Celeste Gardiner APRN - WORM RAISER OTHER 02/04/2025 Telephone [facility] UROLOGY Part of [address] [place] [address] Fred Maurice MD request for medication from Last 3 Months Social History Tobacco Use Types Packs/Day Years Used Date Smoking Tobacco: Every Day Cigarettes 2 25.6 Started: 09/05/1999 Smokeless Tobacco: Never Tobacco Cessation:Ready to Q uit: Yes; Counseling Given: Not Answered Comments No Sex and Gender Information Value Date Recorded Sex Assigned at Not on file Legal Sex Female 9:09 PM EST Gender Identity Not on file Sexual Orientation Not on file Last Filed Vital Signs Vital Sign Reading Time Taken Comments Blood Pressure 119/75 02/04/2025 10:56 AM EDT Pulse 71 02/04/2025 10:56 AM EDT Temperature 36.2 C (97.1 F) 12/10/2024 3:00 PM EDT Respiratory Rate 18 12/10/2024 3:00 PM EDT Oxygen Saturation - - Inhaled Oxygen Concentration - - Weight 93 kg (205 lb) 06/17/2023 11:43 AM EDT Height 154.9 cm (5' 1 ) 02/04/2025 10:56 AM EDT Body Mass Index 38.73 05/12/2023 3:09 PM EDT Plan of Treatment Upcoming Encounters Date Type Department Care Team (Late st Contact Info) Description 05/29/2025 11:30 AM EDT Office Visit [facility] UROLOGY Part of [address] [address] Fred Maurice MD [address] [place] [address], [address] [address] 1m catheter change/provider visit/ dr only Health Maintenance Due Date Last Done Comments Depression Screen 1985 HIV screen 1988 Hepatitis C screen 1991 Hepatitis B vaccine (1 of 3 - 19+ 3-dose series) 1992 Pneumococcal 50+ years Vacci ne (1 of 2 - PCV) 1992 Breast cancer screen 2013 Lipids 2013 Colonoscopy 2018 Colorectal Cancer Screen 2018 FIT/FOBT: Average risk 2018 Fecal-DNA (Cologuard): [place] ge risk 2018 Sigmoidoscopy/CT colonography 2018 Lung Cancer Screening &/or Counseling 2023 Shingles vaccine (1 of 2) 2023 COVID-19 Vaccine (1 - 2023-2 5 season) 2024 Flu vaccine (#1) 04/05/2025 08/27/2024 DTaP/Tdap/Td vaccine (2 - Td or Tdap) 02/21/2030 02/22/2020 Hepatitis A vaccine Aged Out 12/05/2018 No longe r eligible based on patient's age to complete this topic Hib vaccine Aged Out No longer eligi ble based on patient's age to complete this topic Meningococcal (ACWY) vaccine Aged Out No longer eligible based on patient's age to complete this topic Meningococcal B vaccine Aged Out No l onger eligible based on patient's age to complete this topic Polio vaccine Aged Out No longer elig ible based on patient's age to complete this topic Procedures Procedure Name Priority Date/Time Associated Diagnosis Comments INSERT,TEMP INDWELLING BLAD CATH,SIMPLE Routine 02/04/2025 11:41 AM EDT Bowel and bladder incontinence Neurogenic bladder from Last 3 Months Insurance [place] BCBS Care Teams Donor Support Technician Relationship Specialty Start Date End Date Shaikh Obrien MD PCP - General 09/07/23
--- OUTSIDE RECORDS SUMMARY | 2025-04-30 12:00 | XMS_ITS | Encounter Summary ---
Author Organization [facility] Address [address], [address] [place] [address] Care Team Providers Care House Painter Name Role Phone Shaikh SHAHANA Obrien Primary Care Provider [phone] Encounter Details Date Type Department Care Team (Late st Contact Info) Description 06/10/2023 Orders Only [facility] UROLOGY [address] [place] [id number] Provider, MD Haydee Social History Tobacco Use Types Packs/Day Years Used Date Smoking Tobacco: Every Day Cigarettes 2 25.6 Started: 09/05/1999 Smokeless Tobacco: Never Comments Unknown Sex and Gender Information Value Date Recorded Sex Assigned at Not on file Legal Sex Female 9:09 PM EST Gender Identity Not on file Sexual Orientation Not on file documented as of this encounter Plan of Treatment Upcoming Encounters Date Type Department Care Team (Late st Contact Info) Description 05/29/2025 11:30 AM EDT Office Visit [facility] [address]OLOG[address] [place] [address] Fred Maurice MD [address] [place] [address], [address] [place] [address] 1m catheter change/provider visit/ dr only documented as of this encounter Procedures Procedure Name Priority Date/Time Associated Diagnosis Comments CT CERVICAL SPINE WO CONTRAST Routine 06/08/2023 XR ABDOMEN (2 VIEWS) Routine 05/27/2023 documented in this encounter Results * CT CERVICAL SPINE WO CONTRAST (06/08/2023) Anatomical Region Laterality Modality C-spine, T-spine, Neck Computed Tomography Historical Provider MD RED CT ORDERABLES Final R esult * XR ABDOMEN (2 VIEWS) (05/27/2023) Anatomical Region Laterality Modality Abdomen Radiographic Melinda ging Historical Provider MD RED DIAGNOSTIC IMAGING OR DERABLES Final Result documented in this encounter Visit Diagnoses Not on filedocumented in this encounter Care Teams House Painter Relationship Specialty Start Date End Date Shaikh Obrien MD PCP - General 09/07/23 documented as of this encounter
--- OUTSIDE RECORDS SUMMARY | 2025-04-30 12:00 | XMS_ITS | Encounter Summary ---
Author Organization [facility] tem Address [id number] [address] [place] [address] Care Team Providers Care Cab Starter Name Role Phone No Pcp, No Pcp Primary Care Provider Unavailabl e Encounter Details Date Type Department Care Team (Late st Contact Info) Description 10/03/2024 Telephone [facility] Internal Medicine - Family Medicine [address] [place] [address] Brenda Kim, RETAIL PLANNER-ANALOG IC DESIGN ARCHITECT [address] LEFT PM 03/04/25 [place] [phone] Social History Tobacco Use Types Packs/Day Years Used Date Smoking Tobacco: Every Day Cigarettes Smokeless Tobacco: Never Alcohol Use Standard Drinks/Week Comments Never 0 [...] on file documented as of this encounter Miscellaneous Notes * Telephone Encounter - Malathi Gross - 10/03/2024 3:24 PM EST Is looking for new pcp asked for you by name, informed her we were scheduling into november for new pt documented in this encounter Plan of Treatment Not on file documented as of this encounter Visit Diagnoses Not on filedocumented in this encounter Care Teams Cab Starter Relationship Specialty Start Date End Date No Pcp, [place] [address] PCP - General Family Medicine 10/01/24 documented as of this encounter
--- OUTSIDE RECORDS SUMMARY | 2025-04-30 12:00 | XMS_ITS | Encounter Summary ---
Author Organization [facility] Address [address] [place] [address] Care Team Providers Care Pipe Coverer Helper Name Role Phone OroscoGianna carvalho HEMATOLOGY SPECIALIST Unavailable [phone] Unallocated, Noms Provider Primary Care Provi marilu Shaikh SHAHANA Obrien Unavailable [phone] Encounter Details Date Type Department Care Team (Late st Contact Info) Description 08/27/2024 Orders Only [facility] [address] [place] [address] Shaikh Obrien MD [address] [place] [address] Social History Tobacco Use Types Packs/Day Years Used Date Smoking Tobacco: Every Day Cigarettes Passive Smoke Exposure: Current Alcohol Use Standard Drinks/Week Comments Never 0 (1 standard drink = 0.6 oz pur e alcohol) PHQ-2 Answer Date Recorded Patient Health Questionnaire-2 Score 0 05/14/2024 Comments Unknown Sex and Gender Information Value Date Recorded Sex Assigned at Not on file Legal Sex Female 6:45 PM EDT Gender Identity Not on file Sexual Orientation Not on file documented as of this encounter Plan of Treatment Not on file documented as of this encounter Procedures Procedure Name Priority Date/Time Associated Diagnosis Comments US VENOUS LE Routine 08/26/2024 1:58 PM EST documented in this encounter Results * US VENOUS LE (08/26/2024 1:58 PM EST) Anatomical Region Laterality Modality Radiographic Melinda ging us Shaikh Micah HARKINS IMG XR PROCEDURES Final Result documented in this encounter Visit Diagnoses Not on filedocumented in this encounter Care Teams Pipe Coverer Helper Relationship Specialty Start Date End Date Unallocated, Noms Provider, [address] [place] [address] PCP - General Family Medicine 06/04/24 Shaikh Obrien MD [address] [place] [address] [facility] Gianna Orosco NP Nurse Practitioner Family Medicine 04/12/24 documented as of this encounter
--- OUTSIDE RECORDS SUMMARY | 2025-04-30 12:00 | XMS_ITS | Encounter Summary ---
Author Organization [facility] Address [address], [address] [place] [address] Care Team Providers Care Bilingual Office Assistant Name Role Phone Shaikh SHAHANA Obrien Primary Care Provider [phone] Reason for Visit * Reason Onset Date Comments OTHER 04/26/2025 Encounter Details Date Type Department Care Team (Late Contact Info) Description 04/26/[address] [place] [address] Celeste Gardiner, BRAKE ADJUSTER - CUSTOMER ENGAGEMENT ANALYST [address] [place] [address] [address] [place] [address] OTHER Social History Tobacco Use Types Packs/Day Years Used Date Smoking Tobacco: Every Day Cigarettes 2 25.6 Started: 09/05/1999 Smokeless Tobacco: Never Comments No Sex and Gender Information Value Date Recorded Sex Assigned at Not on file Legal Sex Female 9:09 PM EST Gender Identity Not on file Sexual Orientation Not on file documented as of this encounter Plan of Treatment Upcoming Encounters Date Type Department Care Team (Late st Contact Info) Description 05/29/2025 11:30 AM EDT Office Visit [address] [place] [address] Fred Maurice MD [address] [place] [address], [address] [place] [address] 1m catheter change/provider visit/ dr only documented as of this encounter Visit Diagnoses Not on filedocumented in this encounter Care Teams Bilingual Office Assistant Relationship Specialty Start Date End Date Shaikh Obrien MD PCP - General 09/07/23 documented as of this encounter
--- OUTSIDE RECORDS SUMMARY | 2025-04-30 12:00 | XMS_ITS | Encounter Summary ---
Author Organization [facility] Address [address] [place] [address] Care Team Providers Care Occupational Health Physician Name Role Phone Kostas Ching MD Primary Care Provider [phone] Gianna Orosco SALES SUPPORT ADVISOR Unavailable Unallocated, Noms Provider Primary Care Provi amrilu Shaikh SHAHANA Obrien Unavailable [phone] Encounter Details Date Type Department Care Team (Late st Contact Info) Description 05/10/2024 Orders Only [facility] [address] [place] [address] Shaikh Obrien MD [address] [place] [phone] Social History Tobacco Use Types Packs/Day Years [...] Name Priority Date/Time Associated Diagnosis Comments XR ABDOMEN 1 VIEW Routine 05/06/2024 10:54 AM EDT US VENOUS LE Routine 05/04/2024 9:12 AM EDT documented in this encounter Results * XR abdomen 1 view (05/06/2024 10:54 AM EDT) Anatomical Region Laterality Modality Abdomen Radiographic Melinda ging Shaikh Micah HARKINS IMG XR PROCEDURES Final Result * US VENOUS LE (05/04/2024 9:12 AM EDT) Anatomical Region Laterality Modality Radiographic Melinda ging Shaikh Micah HARKINS IMG XR PROCEDURES Final Result documented in this encounter Visit Diagnoses Not on filedocumented in this encounter Care Teams Occupational Health Physician Relationship Specialty Start Date End Date Kostas Ching MD [address] [place] [address] PCP - General Family Medicine 04/12/24 06/03/24 Unallocated, Noms MD [facility] [place] [address] PCP - General Family Medicine 06/04/24 Shaikh Obrien MD [address] [place] [address] PCP - [facility] 11/03/24 Gianna Orosco NP [address] [place] [address] Nurse Practitioner Family Medicine 04/12/24 documented as of this encounter
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
--- OUTSIDE RECORDS SUMMARY | 2025-04-30 12:01 | XMS_ITS | Encounter Summary ---
Author Organization [facility] Address [address], [address] [place] [address] Care Team Providers Care Automotive Heavy Mechanic Name Role Phone Shaikh SHAHANA Obrien Primary Care Provider [phone] Encounter Details Date Type Department Care Team (Late st Contact Info) Description 11/21/2023 Orders Only [facility] [address] [place] [phone] Provider, MD Haydee Social History Tobacco Use [...] Description 05/29/2025 11:30 AM EDT Office Visit [facility] [place] [address] Fred Maurice MD [address] [place] [address], [address] [place] [address] 1m catheter change/provider visit/ dr only documented as of this encounter Procedures Procedure Name Priority Date/Time Associated Diagnosis Comments URINALYSIS Routine 11/21/2023 3:35 PM EDT COMPREHENSIVE METABOLIC PANEL Routine 11/21/2023 3:34 PM EDT CBC Routine 11/21/2023 3:33 PM EDT documented in this encounter Results * Urinalysis (11/21/2023 3:35 PM EDT) Urine [facility] Provider URINE ORDERABLES Final Re sult * Comprehensive Metabolic Panel (11/21/2023 3:34 PM EDT) Blood BLOOD SPECIMEN / Unknown [facility] Provider CHEMISTRY ORDERABLES Ceci l Result * CBC (11/21/2023 3:33 PM EDT) Blood BLOOD SPECIMEN / Unknown Result [facility] Provider HEMATOLOGY ORDERABLES Fin al Result documented in this encounter Visit Diagnoses Not on filedocumented in this encounter Care Teams Automotive Heavy Mechanic Relationship Specialty Start Date End Date Shaikh Obrien MD PCP - General 09/07/23 documented as of this encounter
--- OUTSIDE RECORDS SUMMARY | 2025-04-30 12:01 | XMS_ITS | Encounter Summary ---
Author Organization [facility] Address [address] [place] [address] Care Team Providers Care Floor Coverings Salesperson Name Role Phone Shaikh SHAHANA Obrien Primary Care Provider [phone] Kostas Ching MD Primary Care Provider [phone] Gianna Orosco NP Unavailable [phone] Unallocated, [facility] Provider Primary Care Provi marilu Shaikh SHAHANA Obrien Unavailable [phone] Encounter Details Date Type Department Care Team (Late st Contact Info) Description 12/04/2023 Orders Only [facility] [address] [place] [phone] Shaikh Obrien MD [address] [place] [phone] Social History Tobacco Use Types Packs/Day Years [...] on filedocumented in this encounter Care Teams Floor Coverings Salesperson Relationship Specialty Start Date End Date Shaikh Obrien MD [address] [place] [phone] PCP - General Internal Medicine 11/01/23 04/11/24 Kostas Ching MD [address] [place] [phone] PCP - General Family Medicine 04/12/24 06/03/24 Unallocated, [facility] MD Larry [address] [facility] [place] [address] PCP - General Family Medicine 06/04/24 Shaikh Obrien MD [address] [place] [phone] PCP - [facility] 11/03/24 Gianna Orosco NP [address] [place] [phone] Nurse Practitioner Family Medicine 04/12/24 documented as of this encounter
--- OUTSIDE RECORDS SUMMARY | 2025-04-30 12:01 | XMS_ITS | Encounter Summary ---
Author Organization [facility] Address [address], [address] [place] [address] Care Team Providers Care Alum Mixer Name Role Phone Shaikh SHAHANA Obrien Primary Care Provider [phone] Encounter Details Date Type Department Care Team (Late st Contact Info) Description 12/27/2023 Orders Only [facility] [address] [place] [phone] Provider, MD Haydee Social History Tobacco Use [...] Description 05/29/2025 11:30 AM EDT Office Visit [facility] [address] [place] [phone] Fred Maurice MD [address] [place] [address], [address] [place] [address] 1m catheter change/provider visit/ dr only documented as of this encounter Procedures Procedure Name Priority Date/Time Associated Diagnosis Comments URINE CULTURE, ROUTINE Routine 12/26/2023 4:25 PM EDT URINALYSIS Routine 12/26/2023 4:23 PM EDT documented in this encounter Results * Urine Culture, Routine (12/26/2023 4:25 PM EDT) Urine (Urine) us Historical Provider CHEMISTRY ORDERABLES Ceci l Result * Urinalysis (12/26/2023 4:23 PM EDT) Urine Historical Provider URINE ORDERABLES Final Re sult documented in this encounter Visit Diagnoses Not on filedocumented in this encounter Care Teams Alum Mixer Relationship Specialty Start Date End Date Shaikh Obrien MD PCP - General 09/07/23 documented as of this encounter
--- OUTSIDE RECORDS SUMMARY | 2025-04-30 12:01 | XMS_ITS | Encounter Summary ---
Author Organization [facility] Address [address], [address] [place] [address] Care Team Providers Care Hand Router Operator Name Role Phone Shaikh SHAHANA Obrien Primary Care Provider [phone] Encounter Details Date Type Department Care Team (Late st Contact Info) Description 12/28/2023 Orders Only [facility] [address] [place] [phone] Provider, MD Haydee Social History Tobacco Use [...] Description 05/29/2025 11:30 AM EDT Office Visit [facility] [place] [address] Fred Maurice MD [address] [place] [address], [address] [place] [address] 1m catheter change/provider visit/ dr only documented as of this encounter Procedures Procedure Name Priority Date/Time Associated Diagnosis Comments URINE CULTURE, ROUTINE Routine 11/21/2023 1:47 PM EDT documented in this encounter Results * Urine Culture, Routine (11/21/2023 1:47 PM EDT) Urine (Urine) us Historical Provider CHEMISTRY ORDERABLES Ceci l Result documented in this encounter Visit Diagnoses Not on filedocumented in this encounter Care Teams Hand Router Operator Relationship Specialty Start Date End Date Shaikh Obrien MD PCP - General 09/07/23 documented as of this encounter
--- OUTSIDE RECORDS SUMMARY | 2025-04-30 12:01 | XMS_ITS | Clinical Summary ---
Author Organization [facility] Address [address] [place] [address] Care Team Providers Care [employer] Name Role Phone Kwesi Gianna STACY Unavailable [phone] Unallocated, [facility] Provider Primary Care Provi marilu Shaikh SHAHANA Obrien Unavailable [phone] Allergies Active Allergy Reactions Criticality Noted Date Comments Codeine Hives 08/08/2023 Penicillins Hives,GI intolerance 08/08/2023 Abd pain Promethazine Swelling,Unknown High 10/24/2010 Other reaction(s): Facial Swelling Quetiapine Unknown 08/08/2023 Medications [facility] [id number] UNIT/GM powder Apply 1 application topically in the morning and 1 application in the evening and 1 application before bedtime. To affected area. 3 Active psyllium (Metamucil) 28 % packet Take 1 packet by mouth in the morning. Mix and drink with at least 8 ounces of water or juice.. Active diclofenac sodium (Voltaren Arthritis Pain) 1 % gel Apply 2 g topically in the morning and 2 g in the evening and 2 g before bedtime. externally. Active Buprenorphine HCl-Naloxone HCl (Suboxone) 8-[address] 2 Film under the tongue Daily Active promethazine (Phenergan) 12.5 MG tabletIndication s:Nausea in adult take 1 tablet by mouth every 8 hours if needed for nausea and vomiting 30 tablet 1 4 Active gabapentin (Neurontin) 800 MG tabletIndication s:Chronic bilateral low back pain without sciatica Take 1 tablet (800 mg) by mouth in the morning and 1 tablet (800 mg) in the evening and 1 tablet (800 mg) before bedtime. 270 tablet 4 Active FLUoxetine (PROzac) 20 MG capsuleIndicatio ns:Moderate episode of recurrent major depressive disorder (HCC) Take 1 capsule (20 mg) by mouth Daily 90 capsule 4 Active tiZANidine (Zanaflex) 4 MG tabletIndication s:Chronic bilateral low back pain without sciatica Take 1 tablet (4 mg) by mouth every 8 (eight) hours if needed for muscle spasms 270 tablet 4 Active zolpidem CR (Ambien CR) 12.5 MG ER tabletIndication s:Psychophysiolo gical insomnia Take 1 tablet (12.5 mg) by mouth at bedtime 30 tablet 2 4 Active furosemide (Lasix) 40 MG tabletIndication s:Lower extremity edema Take 1 tablet (40 mg) by mouth Daily 90 tablet 4 Active diazePAM (Valium) 5 MG tabletIndication s:Chronic low back pain, unspecified back pain laterality, unspecified whether sciatica present Take 1 tablet (5 mg) by mouth every 8 (eight) hours if needed for anxiety or muscle spasms 90 tablet 2 4 Active Active Problems Problem Noted Date Diagnosed Date Encounter for medication management 05/15/2024 Recurrent UTI 02/13/2024 Assessment & Plan (02/13/2024 12:01 PM EDT): Recurrent UTI, sec to chronic indwelling catheter. Pt follows Urology. She will discuss surgical options for her incontinence next appt Urinary incontinence, overflow 02/13/2024 Assessment & Plan (02/13/2024 12:00 PM EDT): Due to cord compression, chronic aden catheter in place. Follows Urology. Lower extremity edema 02/13/2024 Assessment & Plan (02/13/2024 12:02 PM EDT): B/l LE edema, +3 on exam today. On lasix, worsening. No known hx of CHF. She was directed to go to ED for further work up as its felt that she will need IV diuresis.. Psychophysiological insomnia 02/13/2024 Assessment & Plan (02/13/2024 12:00 PM EDT): On Ambien, sleeps well on it. URTI (acute upper respiratory infection) 024 Assessment & Plan (02/13/2024 12:03 PM EDT): Reports sore throat, cough, ear pain. She also reports feeling cold/chills. She also has mild SOB. Exam c/w possible strep throat, will call in oral cefdinir for her. 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 Genital herpes 11/01/2023 History of UTI 11/01/2023 Incontinence without sensory awareness Intrinsic sphincter deficiency (ISD) 11/01/2023 Assessment & Plan (05/15/2024 8:15 PM EDT): She has extensive hx of multiple surgeries in lumbar region and ever since last surgery, she is wheelchair bound, has fecal and urinary incontinence. Aden catheter in place. Kyphoscoliosis 11/01/2023 Chronic bilateral low back pain with bilateral s ciatica 11/01/2023 Assessment & Plan (11/01/2023 11:35 AM EST): Acute worsening of chronic LBP, persistent with bilateral radiculopathy. She has bilateral weakness and numbness in LE but she feels ever since her fall, she can't feel anything below her knees. She has extensive hx of multiple surgeries in lumbar region and ever since last surgery, she is wheelchair bound, has fecal and urinary incontinence. Given her prior hx of multiple lumbar surgeries, recent fall, worsening pain and persistent numbness in b/l LE below knees that is knew - will order an MRI LS spine. She is valium, gabapentin and suboxone and was asking for something stronger to help her pain. I spoke with her provider who is treating her for OUD to inquire if she could get a short course of Tramadol but she did not agree with it and instead will order a higher dose of Suboxone for her to help with her pain I will inform the patient. Moderate episode of recurrent major depressive d isorder 11/01/2023 Assessment & Plan (02/13/2024 12:03 PM EDT): Reports low mood, anhedonia. Slightly improved on Prozac. Increase to 20 mg daily. Her pain, inability to ambulate, urinary and fecal incontinence is a considerable source of her stress and negatively impacts her mental health. Assessment & Plan (11/01/2023 10:39 AM EST): Reports low mood, anhedonia. She was previously on Cymbalta and last time, she was started on Wellbutrin. She is currently not using anything. Her pain, inability to ambulate, urinary and fecal incontinence is a considerable source of her stress and negatively impacts her mental health. She asked me if she could start Prozac as it helped previously. Will call it in. Dependence on wheelchair 11/01/2023 Assessment & Plan (05/15/2024 8:14 PM EDT): Ambulatory dysfunction - wheelchair bound. Can stand on her feet briefly. Unable to ambulate ever since her back surgery that was complicated by cord compression. Patient has bilateral LE weakness, numbness, chronic LBP and unsteadiness. She needs wheelchair to perform her ADLs, attend physician appointments and anticipated to need it alf and lifelong Assessment & Plan (11/01/2023 11:59 AM EST): Ambulatory dysfunction - wheelchair bound. Can stand on her feet briefly. Unable to ambulate ever since her back surgery that was complicated by cord compression. Patient currently has a wheelchair but its worn out and breaks on it don't work. It is because of the breaks, she fell last week. Patient has bilateral LE weakness, numbness, chronic LBP and unsteadiness. She needs wheelchair to perform her ADLs, attend physician appointments and anticipated to need it alf and lifelong Ambulatory dysfunction 11/01/2023 Assessment & Plan (11/01/2023 11:58 AM EST): Ambulatory dysfunction - wheelchair bound. Can stand on her feet briefly. Unable to ambulate ever since her back surgery that was complicated by cord compression. Patient currently has a wheelchair but its worn out and breaks on it don't work. It is because of the breaks, she fell last week. Patient has bilateral LE weakness, numbness, chronic LBP and unsteadiness. She needs wheelchair to perform her ADLs, attend physician appointments and anticipated to need it alf and lifelong Compression fracture of L1 lumbar vertebra 06/13 Gait disturbance 06/13/2023 Urinary incontinence 06/13/2023 Acquired spinal deformity 06/13/2023 Scoliosis of lumbar spine 06/13/2023 Thoracic kyphosis 06/13/2023 Thoracic myelopathy 06/13/2023 Thoracolumbar kyphosis 06/13/2023 Spinal stenosis of thoracolumbar region 06/13/20 23 Back pain, chronic 06/20/2019 Assessment & Plan (02/13/2024 12:08 PM EDT): Chronic LBP, Worsened from baseline. Prior hx of thoraco-lumbar fusion. Has worsening LE weakness/numbness. She was ordered to have MRI cervical/thoracic/lumbar spine - awaiting PA. On gabapentin/valium for pain. 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 Has associated fecal and urinary incontinence. Assessment & Plan (05/15/2024 8:22 PM EDT): Patient is wheelchair bound with limited mobility due to chronic LBP, b/l LE weakness. Has associated fecal and urinary incontinence. Immunizations Immunization Administration Dates Next Due Hep A, Adult 12/05/2018 Tdap 02/22/2020 Family History Medical History Relation Name Comments Diabetes Maternal Grandfather Heart disease Maternal Grandmother Hypertension Maternal Grandmother Coronary artery disease Mother Heart disease Mother Hypertension Mother Heart disease Paternal Grandfather Hypertension Paternal Grandfather Relation Name Status Comments Maternal Grandfather Maternal Grandmother Mother Paternal Grandfather Social History Tobacco Use Types Packs/Day Years Used Date Smoking Tobacco: Every Day Cigarettes Passive Smoke Exposure: Current Tobacco Cessation:Ready to Q uit: No; Counseling Given: Yes Alcohol Use Standard Drinks/Week Comments Never 0 [...] Sign Reading Time Taken Comments Blood Pressure 104/54 05/14/2024 9:48 AM EDT Pulse 72 05/14/2024 9:48 AM EDT Temperature 35.9 C (96.7 F) 05/14/2024 9:48 AM EDT Respiratory Rate 16 05/23/2023 6:54 PM EDT Oxygen Saturation - - Inhaled Oxygen Concentration - - Weight 86.2 kg (190 lb) 05/14/2024 9:48 AM EDT Height 157.5 cm (5' 2 ) 05/14/2024 9:48 AM EDT Body Mass Index 34.75 05/14/2024 9:48 AM EDT Plan of Treatment Health Maintenance Due Date Last Done Comments CT Colonography 1973 Colonoscopy 1973 Colorectal Cancer Screening 1973 FIT-DNA 1973 FIT 1973 FOBT 1973 Sigmoidoscopy 1973 Pap Smear 1994 Cervical Cancer Screening 2003 HPV/Cotest 2003 Mammogram 2013 Influenza Vaccine (#1) 2025 08/27/2024 Insurance BS Care Teams [employer] Relationship Specialty Start Date End Date Unallocated, [facility] Provider, [address] [place] [address] PCP - General Family Medicine 06/04/24 Shaikh Obrien MD [address] [place] [address] PCP - [employer] 11/03/24 Gianna Orosco NP Nurse Practitioner Family Medicine 04/12/24
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
--- OUTSIDE RECORDS SUMMARY | 2025-04-30 12:06 | XMS_ITS | CCD ---
Author Organization [facility] Care Team Providers Care Gastroenterology Nurse Practitioner Name Role Phone Required, No Pcp Unavailable Unavailable Lex Frederick Unavailable None, No PCP Unavailable Unavailable Unavailable Unavailable SHAIKH OBRIEN Primary Care Physician [phone] Yony Aguirre Unavailable Unavailable Neurosurgery Unavailable Unavailable Dr. LEX FREDERICK Admitting Unava ilable Dr. LEX FREDERICK Attending Unava ilable Patient, Unavailable Referring Unavailable Dr. Yony Aguirre Attending Unavailable FAWWAD, MENDOSA H Primary Care Unavailable PÉREZ PATINO Attending Unavailable PÉREZ PATINO Admitting Unavailable JON, DR ABHINAV Livingston Attending Unavailabl e FAWWAD, MENDOSA H Primary Care Unavailable DR ABHINAV WEBB Admitting UnavailDR ABHINAV Kc Consulting UnavailDR CLIF Cotton Admitting Unavailable DR CLIF HUTTON Consulting Unavailable FAWWAD, MENDOSA H Primary Care Unavailable DR CLIF HUTTON Attending Unavailable IVON AMARO Admitting Unavailable IVON AMARO Consulting Unavailable FAWWAD, MENDOSA H Primary Care Unavailable IVON AMARO Attending Unavailable LALI BENITEZ Admitting Unavailable LALI BENITEZ Consulting Unavailable FAWWAD, MENDOSA H Primary Care Unavailable LALI BENITEZ Attending Unavailable FAWWAD, MENDOSA H Primary Care Unavailable LUE ., GUILLERMINA M Admitting Unavailable LUE . GUILLERMINA M Attending Unavailable FAWWAD, MENDOSA H Primary Care Unavailable LUE ., GUILLERMINA M Admitting Unavailable LUE ., GUILLERMINA M Consulting Unavailable LUE ., GUILLERMINA M Attending Unavailable REINECK, DR ABHINAV Livingston Attending Unavailabl e FAWWAD, [facility] Primary Care Unavailable REINECK, DR ABHINAV Livingston Admitting Unavailabl e REINECK, DR ABHINAV Livingston Consulting Unavailabl e VETO ., IVON Admitting Unavailable VETO ., IVON Attending Unavailable [facility], [facility] Primary Care Unavailable PATRICK, DEBORAH Aponte Consulting Unavailable [facility] Unavailable REINECK, DR ABHINAV Livingston Admitting Unavailabl e REINECK, DR ABHINAV Livingston Consulting Unavailabl e REINECK, DR ABHINAV Livingston Attending Unavailabl e HAY ., DR LOW Admitting [facility]available [facility] Unavailable HAY ., DR LOW Attending Unavailable ZIEBER, DR ENRIQUE Santana Consulting Unavailable HAY ., DR LOW Consulting Unavailable LUE ., GUILLERMINA M Admitting Unavailable LUE ., GUILLERMINA M Attending Unavailable [facility] [place] Primary Care Unavailable [facility] Primary Care Unavailable LUE ., GUILLERMINA M Admitting Unavailable LUE ., GUILLERMINA M Consulting Unavailable LUE ., GUILLERMINA M Attending Unavailable CANDICE MATTA Consulting Unava ilRACHEL Kirk Consulting Unavailable DIAB ., KYRA Admitting Unavailable [facility] Primary Care Unavailable DIAB ., KYRA Attending Unavailable GRECHNY ., BONITA HULL Consulting Unavailabl e FAWWAD, [facility] Primary Care Unavailable LUE ., GUILLERMINA M Admitting Unavailable LUE ., GUILLERMINA M Consulting Unavailable LUE ., GUILLERMINA Aponte Attending Unavailable PAY ., DR RODRIGUEZ Admitting Unavailable PAY ., DR RODRIGUEZ Consulting Unavailable [facility] Primary Care Unavailable PAY ., DR RODRIGUEZ Attending [facility]available [facility] Care Unavailable REINECK, DR ABHINAV Livingston Admitting Unavailabl e JON, DR ABHINAV Livingston Consulting Unavailabl e JON, DR ABHINAV Livingston Attending Unavailabl e KORIN STANLEY Consulting Unavailable Zach, Dr. Lex De Los Santos Attending Unava ollie Obrien MD, [facility] Primary Care Provider [phone] SHAIKH OBRIEN Attending Unavailable SHAIKH OBRIEN Attending Unavailable GENNY OROSCO Attending Unavailabl jacque Orosco COMPUTER ARCHITECT, Genny Unavailable Unallocated , [place] Provider Primary Care Provi marilu Kostas Ching MD Primary Care Provider [phone] No Pcp, No Pcp Primary Care Provider Unavailrenee e BIN, Primary Care Unavailable GREYSON ROBERTSON Attending Unavailable ЕЛЕНА LOYD Admitting Unavailable ROMMEL FOLEY Consulting Unavailable Bin HARKINS, Primary Care Provider Unavailable Primary Care Provider Unavailrenee e LEX FREDERICK Attending Unavailable Fawscot, Attending Unavailable Delfinowscot, Admitting Unavailable Shaikh Obrien Primary Care Unavailable Armando Spaulding Admitting Unavailab Armando Farris Attending Unavailab le Shaikh Obrien Primary Care Unavailable Amari, Deirdre L Primary Care Physician [phone] Amari, Deirdre L Attending Unavailable Amari, Deirdre L Admitting Unavailable Amari, Deirdre L Attending Unavailable Amari, Deirdre L Admitting Unavailable Amari, INSURANCE VERIFICATION REP Deirdre L Attending Unavailable Amari, INSURANCE VERIFICATION REP Deirdre L Attending Unavailable Amari, INSURANCE VERIFICATION REP Deirdre L Attending Unavailable Amari, INSURANCE VERIFICATION REP Deirdre L Attending Unavailable Amari, INSURANCE VERIFICATION REP Deirdre L Admitting Unavailable Amari, INSURANCE VERIFICATION REP Deirdre L Attending Unavailable Richardson Craig Attending Unavailable Amari, INSURANCE VERIFICATION REP Deirdre L Attending Unavailable Amari, INSURANCE VERIFICATION REP Deirdre L Attending Unavailable Allergies Allergy Classification Reported Allergen(s) Allergy Type Date of Onset Reaction(s) Facility Opioid Agonists (1 source) Codeine Drug Allergy Unknown [facility] Penicillins (antibiotic) (1 source) Penicillin Drug Allergy Unknown [facility] QUEtiapine (1 source) QUEtiapine Drug Allergy Unknown [facility] (20 sources) Codeine; Translations: [Codeine] Drug Allergy 1 Hives, Facial Swelling, Swelling, Other, Unknown [facility] Work Phone: (20 sources) Penicillins; Translations: [Penicillins] Allergy to drug (finding) 1 Swelling, Hives, Unknown [facility] Work Phone: (20 sources) Promethazine; Translations: [promethazine] Drug Allergy 1 Swelling, Unknown [facility] (1 source) QUEtiapine Drug Allergy Seizures [facility] (2 sources) Codeine Drug Allergy 3 [facility] (5 sources) gabapentin; Translations: [Neurontin] Drug Allergy [facility] (1 source) Levamisole Drug Allergy [facility] (1 source) Morphine Drug Allergy 0 [facility] (2 sources) Penicillins Drug allergy (disorder) 3 [facility] (1 source) QUEtiapine Drug Allergy 3 [facility] (14 sources) Penicillins; Translations: [penicillins] Drug Allergy 3 Hives, GI intolerance [facility] (14 sources) QUEtiapine; Translations: [QUETIAPINE] Drug Allergy 3 Unknown, Seizure [facility] (4 sources) Penicillin; Translations: [PENICILLIN] Drug Allergy 6 Facial Swelling [facility] (4 sources) Phenergan Plain; Translations: [PHENERGAN PLAIN] Propensity to adverse reactions to drug 6 Swelling, Facial Swelling [facility] (1 source) Codeine Drug Allergy 0 [facility] (1 source) Penicillins Drug allergy (disorder) 0 [facility] (1 source) QUEtiapine Drug Allergy 2 [facility] Medications Current Medications Medication Drug Class(es) Dates Sig (Normalized) Sig (Original) Ankle Foot Orthosis (1 source) Start: 09-23-2021 Ankle Foot Orthosis ; for foot drop Quantity: 2 Refills: 0 Ordered: 23-Sep-2021 Azghadi, [place] Start: 23-Sep-2021 Status: Discontinued Generic Substitution Allowed Bilateral Prafos (1 source) Start: 09-24-2021 Bilateral Prafos ; - orthotics to fit- ICD 10: R26.0, M21.37, M62.81 Quantity: 1 Refills: 0 Ordered: 24-Sep-2021 Emma Izaguirre Start: 24-Sep-2021 Generic Substitution Allowed 24 hr buPROPion hydrochloride 150 mg extended release oral tablet (2 sources) Aminoketone Start: 09-13-2022 take 1 tablet by mouth once daily before mealtime buPROPion XL (Wellbutrin XL) 150 mg 24 hr tablet Take 1 tablet (150 mg) by mouth once daily in the morning. Take before meals. 09/13/2022 Active take 1 tablet by marlen th every twenty-four hours in the morning buPROPion XL (Wellbutrin XL) 150 MG 24 h r tablet Take 1 tablet by mouth in [...] day Quantity: 120 Refills: 0 Ordered: 01-Jan-2021 Emma Izaguirre Start: 01-Jan-2021 Status: Discontinued Generic Substitution Allowed cephalexin 500 mg oral capsule (2 sources) Cephalosporin Antibacterial Start: 07-16-2022 take 1 capsule by mouth every twelve hours Keflex 500 mg Cap 500 mg = 1 cap(s), Oral, q12hr, # 2 cap(s), Refills(s) 0, Pharmacy: [facility] #[id number], 156, cm, 07/16/22 10:58:00 EST, Height/Length Dosing, [...] day(s), # 2 tab(s), Refills(s) 0, Pharmacy: [place] [id number] [address] [facility], 156, cm, 01/06/22 10:53:00 EDT, Height/Length Dosing, 78, kg, 01/06/22 10:53:00 EDT... Start Date: 01/06/22 Stop Date: 01/08/22 Status: Ordered cyclobenzaprine hydrochloride 5 mg oral tablet (20 sources) Muscle Relaxant Start: 10-28-2020 cyclobenzaprine (Flexeril) 5 mg tablet Take by mouth. 10/28/2020 Active Start: 10-28-2020 Cyclobenzaprin e HCl - 5 MG Oral Tablet Quantity: 0 Refills: 0 Ordered: 28-Oct-2020 DO Start : 28-Oct-2020 Active Start: 04-17-2015 End: 10-01-2024 take 1 tablet by mouth three times daily cyclobenzaprine (Flexeril) 10 mg tablet Take 1 tablet (10 mg) by mouth 3 times a day. 04/17/2015 Active diclofenac sodium 50 mg delayed release oral tablet (20 sources) Nonsteroidal Anti-inflammatory Drug Start: 01-01-2021 diclofenac sodium 50 mg oral delayed release tablet ; 1 tab(s) orally 3 times a day-DO NOT RESTART THIS MEDICATION UNTIL CLEARED BY DR. FREDERICK Quantity: 0 Refills: 0 Ordered: 01-Jan-2021 Emma Izaguirre Start: 01-Jan-2021 Generic Substitution Allowed Start: 10-28-2020 Voltaren 1 % G EL Quantity: 0 Refills: 0 Ordered: 28-Oct-2020 DO Start : 28-Oct-2020 Active Start: 04-17-2015 diclofenac sod ium 3 % gel Apply 1 application. topically 3 times a day. 04/17/2015 Active diclofenac sodiu m (Voltaren Arthritis Pain) 1 % gel Apply 2 g topically in the morning and 2 g in the evening and 2 g before bedtime. externally. Active diclofenac topic al 1% topical gel ; 1 carlene topical prn Quantity: 0 Refills: 0 Ordered: 12-Dec-2020 Carole Mcdaniel Status: Discontinued Generic Substitution Allowed Voltaren ; 1 tab (s) oral Quantity: 0 Refills: 0 Ordered: 05-Dec-2020 Carole Mcdaniel Status: Discontinued Generic Substitution Allowed DULoxetine 60 mg delayed release oral capsule (5 sources) Serotonin and Norepinephrine Reuptake Inhibitor Start: 06-06-2023 take 1 capsule by mouth in the morning DULoxetine (Cymbalta) [address] capsule Take 1 capsule by mouth in the morning. 0 07/20/2023 Active Start: 09-30-2021 take 1 capsule by mo [facility] once daily DULoxetine 30 mg oral [...] 10/04/2024 Active FLUoxetine 20 mg oral capsule (8 sources) Serotonin Reuptake Inhibitor Start: 11-07-2022 End: 05-13-2024 take 1 capsule by mouth once daily FLUoxetine (PROzac) 20 MG capsule Indications: Moderate episode of recurrent major depressive disorder (CMS/HCC) Take 1 capsule (20 mg) by mouth Daily 90 capsule 02/13/2024 Active FLUoxetine (PROz ac) 40 mg capsule Orally Active furosemide 40 mg oral tablet (9 sources) Loop Diuretic Start: 05-27-2019 End: 05-13-2024 take 1 tablet by mouth once daily furosemide (Lasix) 40 MG tablet Indications: Lower extremity edema Take 1 tablet (40 mg) by mouth Daily 90 tablet 02/13/2024 Active take 2 tablets by mo [facility] once daily as needed furosemide 20 mg oral tablet ; 2 tab(s) orally once a day, As Needed Quantity: 0 Refills: 0 Ordered: 15-Sep-2021 Enrique Egan Generic Substitution Allowed [facility] furosemide 20 mg oral tablet ; 1 tab(s) orally once a day, As Needed Quantity: 0 Refills: 0 Ordered: 01-Jan-2021 Emma zIaguirre Generic Substitution Allowed gabapentin 800 mg oral [...] G89.19 Quantity: 90 Refills: 0 Ordered: 02-Oct-2021 Emma Izaguirre Start: 02-Oct-2021 End: 31-Oct-2021 Generic Substitution Allowed Start: 10-28-2020 Gabapentin 800 MG Oral Tablet Quantity: 0 Refills: 0 Ordered: 28-Oct-2020 DO Start : 28-Oct-2020 Active Start: 05-30-2019 take 1 tablet by marlen th three times daily gabapentin (Neurontin) 600 mg tablet Take 1 tablet (600 mg) by mouth 3 times a day. 05/30/2019 Active Start: 01-05-2016 take 2 capsules by m outh three times daily Neurontin 100 mg Cap 200 mg = 2 cap(s), Oral, TID, Refills(s) 0 Start Date: 01/05/16 Status: Ordered Start: 04-17-2015 take 1 capsule by mo uth three times daily gabapentin (Neurontin) 300 mg capsule Take 1 capsule (300 mg) by mouth 3 times a day. 04/17/2015 Active Start: 04-17-2015 gabapentin (NE URONTIN) 300 mg capsule Take 800 mg by mouth 3 (three) times a day. 04/17/2015 Active Geritol oral tablet (11 sources) Start: 10-30-2011 Geritol oral tablet 1 tab(s), Oral, Daily, 90 tab(s), Refill(s) 0 Start Date: 10/30/11 Status: Ordered hydroCHLOROthiazide 12.5 mg oral tablet (16 sources) Thiazide Diuretic Start: 01-05-2016 take 12.5 mg by mouth once daily hydrochlorothiazide 12.5 mg, Oral, Daily, Refills(s) 0 Start Date: 01/05/16 Status: Ordered Start: 04-17-2015 take 1 capsule by mo uth once daily hydroCHLOROthiazide (Microzide) 12.5 mg capsule Take 1 capsule (12.5 mg) by mouth once daily. 04/17/2015 Active LEFT AFO (1 source) Start: 09-23-2021 LEFT AFO ; -Or thotics to fitICD 10: M21.37 Quantity: 1 Refills: 0 Ordered: 23-Sep-2021 Emma Izaguirre Start: 23-Sep-2021 Generic Substitution Allowed lidocaine 0.05 mg/mg medicated patch (16 sources) Antiarrhythmic, Amide Local Anesthetic Start: 01-01-2021 lidocaine 5% topical film ; Apply topically to affected area once a day, As Needed near surgical incision for incisional pain Quantity: 10 Refills: 0 Ordered: 01-Jan-2021 Emma Izaguirre Start: 01-Jan-2021 Generic Substitution Allowed Start: 10-28-2020 lidocaine (Xyl ocaine) 5 % cream cream Lipocaine 5 5 % External Cream Refills: 0 Start : 28-Oct-2020 Active 30 GM Tube 10/28/2020 Active Start: 10-28-2020 Lipocaine 5 5 % External Cream Quantity: 0 Refills: 0 Ordered: 28-Oct-2020 DO Start : 28-Oct-2020 Active lidocaine cream ; 1 carlene prn Quantity: 0 Refills: 0 Ordered: 05-Dec-2020 FaustinoCarole solano Status: Discontinued Generic Substitution Allowed lisinopril 20 mg oral tablet (20 sources) Angiotensin Converting Enzyme Inhibitor Start: 10-28-2020 lisinopril 20 mg tablet Take by mouth. 10/28/2020 Active Start: 10-28-2020 Lisinopril 20 MG Oral Tablet Quantity: 0 Refills: 0 Ordered: 28-Oct-2020 DO Start : 28-Oct-2020 Active Start: 04-17-2015 End: 10-01-2024 take 1 tablet by mouth once daily lisinopril 10 mg tablet Take 1 tablet (10 mg) by mouth once daily. 04/17/2015 Active 24 hr mirabegron 50 mg extended release oral tablet (8 sources) beta3-Adrenergic Agonist Start: 02-25-2022 take 1 tablet by mouth once daily mirabegron 50 mg oral tablet, extended release 50 mg = 1 tab(s), Oral, Daily, # 30 tab(s), Refills(s) 3, Pharmacy: [address], 156, cm, 02/04/22 15:47:00 EDT, Height/Length Dosing, 78, kg, 02/04/22 15:47:00 EDT, Weight Dosing Start Date: 02/25/22 Status: Ordered nystatin 100 unt/mg topical powder (10 sources) Polyene Antifungal Start: 03-07-2023 Nyamyc 418756 UNIT/GM powder Apply 1 application topically in the morning and 1 application in the evening and 1 application before bedtime. To affected area. 03/07/2023 Active omeprazole 40 mg delayed release oral capsule (9 sources) Proton Pump Inhibitor Start: 01-06-2022 take 1 mg by mouth once daily omeprazole 40 mg Cap-DR mg cap(s), Oral, Daily, Refills(s) 0 Start Date: 01/06/22 Status: Ordered Start: 05-18-2011 take 1 capsule by mo [facility] once daily omeprazole (PriLOSEC) [address] capsule Take 1 capsule (20 mg) by mouth once daily. 05/18/2011 Active omeprazole 40 mg Cap-DR (3 sources) Start: 01-06-2022 take 1 mg by mouth once daily omeprazole 40 mg Cap-DR mg cap(s), Oral, Daily, Refills(s) 0 Start Date: 01/06/22 Status: Ordered 24 hr oxybutynin chloride 10 mg extended release oral tablet (10 sources) Cholinergic Muscarinic Antagonist Start: 10-04-2022 take 1 tablet by mouth once daily oxybutynin XL (Ditropan-XL) 10 mg 24 hr tablet Take 1 tablet (10 mg) by mouth once daily. 12/31/2022 Active Start: 07-16-2022 take 1 tablet by marlen once daily oxybutynin 10 mg ER Tab 10 mg = 1 tab(s), Oral, Daily, # 30 tab(s), Refills(s) 11, Pharmacy: [facility] #[id number], 156, cm, 07/16/22 10:58:00 EST, Height/Length Dosing, 78, kg, 07/16/22 10:58:00 EST, Weight Dosing Start Date: 07/16/22 Status: Ordered Start: 03-10-2022 take 1 tablet by [facility] once daily oxybutynin 10 mg ER Tab 10 mg = 1 tab(s), Oral, Daily, # 30 tab(s), Refills(s) 3, Pharmacy: [id number] [facility], 156, cm, 02/04/22 15:47:00 EDT, Height/Length Dosing, 78, kg, 02/04/22 15:47:00 EDT, Weight Dosing Start Date: 03/10/22 Status: Ordered take 1 tablet by marlen once daily oxybutynin XL (Ditropan-XL) 15 mg 24 hr tablet Take 1 tablet (15 mg) by mouth once daily. Active oxyCODONE hydrochloride 5 mg oral tablet (2 sources) Opioid Agonist Start: 01-01-2021 End: 01-07-2021 take 1 tablet by mouth every six hours as needed oxyCODONE 5 mg oral tablet ; 1 tab(s) orally every 6 hours, As Needed while having severe post operative painICD 10: G89.18PRN Reason: Pain - Mod (4-6) Quantity: 28 Refills: 0 Ordered: 01-Jan-2021 Emma Izaguirre Start: 01-Jan-2021 End: 07-Jan-2021 Generic Substitution Allowed polyethylene glycol 3350 22762 mg powder for oral solution (6 sources) Osmotic Laxative Start: 09-30-2021 polyethylene glycol 3350 oral powder for reconstitution ; 17 gram(s) orally 3 times a day - available over the counter at any pharmacy Quantity: 0 Refills: 0 Ordered: 30-Sep-2021 Yuridia Concetta Start: 30-Sep-2021 Generic Substitution Allowed Start: 04-17-2015 polyethylene g lycol (MIRALAX) 17 gram packet Take 17 g by mouth daily. 04/17/2015 Active polyethylene glycol 3350 902176 mg / potassium chloride 2970 mg / sodium bicarbonate 6740 mg / sodium chloride 5860 mg / sodium sulfate 95459 mg powder for oral solution (9 sources) Osmotic Laxative Start: 09-29-2021 polyethylene glycol-electrolytes (polyethylene glycol) 420 gram solution Take by mouth. TAKE DIRECTED. 09/29/2021 Active Start: 09-29-2021 PEG-3350/Elect rolytes 236 GM Oral Solution Reconstituted TAKE DIRECTED. Quantity: 1 Refills: 0 Ordered: 29-Sep-2021 Nasra Gautam MD Start : 29-Sep-2021 Active Prior to colonoscopy microencapsulated potassium chloride 20 meq extended release [...] M21.37 Quantity: 1 Refills: 0 Ordered: 23-Sep-2021 Emma Izaguirre Start: 23-Sep-2021 Generic Substitution Allowed sulfamethoxazole 800 mg / trimethoprim 160 mg oral tablet (2 sources) Dihydrofolate Reductase Inhibitor Antibacterial, Sulfonamide Antimicrobial Start: End: take 1 tablet by mouth once [...] Daily, # 30 cap(s), Refills(s) 0, Pharmacy: [address], 156, cm, 01/07/22 13:43:00 EDT, Height/Length [...] hours] Start: 01-01-2021 take 2 tablets by mo uth every six hours acetaminophen 325 mg oral tablet ; 2 tab(s) orally every 6 hours, as needed while having post operative pain Quantity: 0 Refills: 0 Ordered: 01-Jan-2021 Emma Izaguirre Start: 01-Jan-2021 Generic Substitution Allowed aluminum [...] pical valerate 0.1% topical cream ; 1 carlene topical prn Quantity: 0 Refills: 0 Ordered: [...] Refill(s) 0 Start Date: 01/05/16 Status: Ordered buprenorphine-na loxone (Suboxone) 8-[address] 1 tablet under the tongue 2 times a day. Active Suboxone 8 mg-2 mg sublingual tablet ; 1 tab(s) sublingual -Please discuss with prescriber about when to restart/transition back to this medication Quantity: 0 Refills: 0 Ordered: 01-Jan-2021 Emma Izaguirre Generic Substitution Allowed 100 ml calcium [...] 12-Dec-2020 Vanessa Khan Start : 12-Dec-2020 Active diazePAM 5 mg oral tablet (20 sources) Benzodiazepine Start: 10-01-2024 End: 10-01-2024 take 1 tablet by mouth every six hours as needed 5 mg, oral, Every 6 hours PRN, muscle spasms, Starting on Tue10/01/24 at 1007, Look-alike/sound-al dandy medication - verify indication for use. Do [...] tablet 1 10/10/2023 12/09/2023 Active Start: 10-28-2020 diazePAM (Bebeto um) 10 mg tablet Take by mouth. 10/28/2020 Active Start: 10-28-2020 Valium 10 MG O [...] mouth every eight hours as needed diazePAM (Valium) 2 mg tablet Take 1 tablet (2 mg) by mouth every 8 hours if needed for anxiety or muscle spasms. 04/17/2015 Active take 1 tablet by marlen three times daily as needed for muscle spasms diazePAM (Valium) 5 mg tablet Take 1 tablet (5 mg) by mouth 3 times a day as needed for muscle spasms. Active Valium ; 1 tab(s ) oral Quantity: 0 Refills: 0 Ordered: 05-Dec-2020 Carole Mcdaniel Status: Discontinued Generic Substitution Allowed docusate sodium 50 mg / sennosides, half-way 8.6 mg oral tablet (3 sources) Start: 10-01-2024 End: 10-01-2024 take 1 tablet by mouth every twelve hours as needed for constipation 1 tablet, oral, Every 12 hours PRN, constipation, Starting on Tue10/01/24 at 0412 Start: 01-01-2021 take 2 tablets by mo [facility] twice daily for pain sennosides-docusate 8.6 mg-50 mg oral tablet ; 2 tab(s) orally 2 times a day -Take while using oxycodone for post operative pain to prevent contipation Quantity: 30 Refills: 0 Ordered: 01-Jan-2021 Emma Izaguirre Start: 01-Jan-2021 Generic Substitution Allowed Comments: [...] End: 10-01-2024 1 mg, intravenous, Once, On Tue09/30/24 at [...] days. Maximum recommended dose + 120mg/24 hours. 50 ml magnesium sulfate 40 mg/ml injection [...] day Quantity: 30 Refills: 0 Ordered: 01-Jan-2021 mEma Izaguirre Start: 01-Jan-2021 Status: Discontinued Generic Substitution [...] / nitrofurantoin, monohydrate 75 mg oral capsule (5 sources) Nitrofuran Antibacterial Start: Macrobid 100 mg Cap 100 mg = 1 cap(s), Oral, As Directed, Take 1 tab by mouth after catheter change then take second tab 12 hours later. Take with food., # 2 cap(s), Refills(s) 0, Pharmacy: [facility] #[id number], 156, cm, 11/26/22 8:15:00 EDT, Height/Length Dosing, 78, kg, 11/26/22 8:15:00 EDT, Weight Dosing Start Date: 11/26/22 Status: Ordered 2 ml ondansetron 2 mg/ml injection (15 sources) Serotonin-3 Receptor Antagonist Start: 025 End: take 4 mg intravenously every four hours as needed for nausea and vomiting 4 mg, intravenous, Every 4 hours PRN, nausea, vomiting, Starting on Tue10/01/24 at 0412, Administer over 2-5 minutes. Start: 09-12-2022 ondansetron OD T (Zofran-ODT) 4 mg disintegrating tablet dissolve 1 tablet ON TONGUE once daily if needed for nausea 09/12/2022 Active Start: 10-28-2020 Zofran 4 MG TA BS [...] during and for 5-10 minutes following injection. 1000 ml sodium chloride 9 mg/ml injection [...] mL IVPB tiZANidine 4 mg oral tablet (11 sources) Central alpha-2 Adrenergic Agonist Start: 10-01-2024 [...] spasms Quantity: 30 Refills: 0 Ordered: 02-Oct-2021 Emma Izaguirre Start: 02-Oct-2021 Generic Substitution Allowed take 1 tablet by marlen th three times daily as needed tiZANidine (Zanaflex) 4 mg tablet Take 1 tablet (4 mg) by mouth 3 times a day as needed. Active Problems Active Problems Problem Classification Problem Date Documented Da te Episodic/Chronic Allergic reactions (1 source) Allergy status to penicillin; Translations: [Allergy status to penicillin] Onset: 2 Episodic Anxiety disorders (4 sources) Anxiety disorder, unspecified; Translations: [Post-traumatic stress disorder, unspecified] Onset: 2 10-31-2024 Chronic Chronic ulcer of skin (10 sources) [...] of urinary (tract) infections] Onset: 2 Episodic Malaise and fatigue (4 sources) Asthenia; Translations: [Weakness] Onset: 5 10-01-2024 Episodic Miscellaneous mental health disorders (12 sources) Psychophysiologic insomnia; Translations: [Psychophysiologic insomnia] Onset: 1 02-13-2024 Chronic Mood disorders (20 sources) Depressive disorder; Translations: [Major depressive disorder, single episode, unspecified] Onset: 2 02-21-2014 Chronic Mood disorders (2 sources) Mood disorders; Translations: [Depression, unspecified] Onset: 2 Mycoses (2 sources) Candidiasis of vagina 12-12-2024 Episodic Nausea and vomiting (4 sources) Nausea; Translations: [Nausea] Onset: 3 Episodic Nonspecific chest pain (1 source) Chest pain, unspecified; Translations: [Chest pain, unspecified] Onset: 5 Episodic Other acquired deformities (20 sources) Kyphosis of thoracic spine; Translations: [Kyphosis (acquired) (postural)] Onset: 3 12-27-2020 Chronic Other acquired deformities (20 sources) Acquired kyphosis; Translations: [Kyphosis (acquired) (postural)] Onset: 3 06-13-2023 Chronic Other acquired deformities (20 sources) Scoliosis of lumbar spine; Translations: [Scoliosis [and kyphoscoliosis], idiopathic] Onset: 3 11-01-2023 Chronic Other acquired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 Mouth 2 times a day SAI (generalized anxiety disorder) depression Indwelling Alvares catheter present Lower extremity edema Chronic back pain BMI 35.0-35.9,adult Smoker Unchanged gabapentin (gabapentin 800 mg Tab) 1 Tablets By Mouth 3 times a day Unchanged multivitamin with iron (Geritol oral tablet) 1 Tablets By Mouth Every day Unchanged omeprazole (omeprazole 40 mg Cap-DR) By Mouth Every day Unchanged oxybutynin (oxybutynin 10 mg ER Tab) 1 Tablets By Mouth Every day Unchanged tizanidine (tiZANidine 4 mg Tab) See instructions TAKE 1 TABLET BY MOUTH EVERY 8 HOURS Unchanged zolpidem (Ambien CR 12.5 mg Tab-ER) 1 Tablets By Mouth Once a day (at bedtime) as needed for for sleep Allergies Phenergan codeine penicillins Problems Ongoing - Any problem that you are currently receiving treatment for. BMI 32.0-32.9,adult Breast cancer screening Cellulitis of leg Cervical cancer screening Chronic back pain depression Fibromyalgia SAI (generalized anxiety disorder) Genital herpes History of UTI Incomplete bladder emptying Incontinence without sensory awareness Indwelling Alvares catheter present Intrinsic sphincter deficiency (ISD) Localized swelling of both lower legs Lower extremity edema Smoker SOB (shortness of breath) Urinary incontinence Urinary incontinence without sensory awareness Vaginal yeast infection Well woman exam Historical - Any problem that you are no longer receiving treatment for. compression fractures Opiate misuse Urinary retention Patient Survey You may receive a survey via text or e-mail asking about your office visit. Please share your experience with us by completing your survey. We appreciate your feedback and thank you for choosing us for your care. Andrei [facility] Ambulatory Visit Summary Ambulatory Visi t Summary MORALES LEE Elena :1975 Visit Date:12/12/2024 Ambulatory Visit Instructions Your Diagnosis Well woman exam Breast cancer screening Cervical cancer screening Vaginal yeast infection Cellulitis of leg Localized swelling of both lower legs SOB (shortness of breath) Your Care Team Attending Physician - Deirdre Hale Primary Care Physician - Deirdre Hale This Is Your Medications List acyclovir topical (acyclovir Top 5% Crm) buprenorphine-naloxone (Suboxone 8 mg-2 mg sublingual film) diazepam (diazepam 5 mg Tab) duloxetine (Cymbalta 30 mg oral delayed release capsule) gabapentin (gabapentin 800 mg Tab) multivitamin with iron (Geritol oral tablet) omeprazole (omeprazole 40 mg Cap-DR) oxybutynin (oxybutynin 10 mg ER Tab) tizanidine (tiZANidine 4 mg Tab) zolpidem (Ambien CR 12.5 mg Tab-ER) Procedures Performed Appendectomy, Cholecystectomy, Hernia, Hysterectomy, mylogr. Discharge Vitals Heart Rate (Peripheral) 78 Blood Pressure 122/80 Height 154.0 cm Height 61 in Weight 83.46 kg Weight 183.998 lb BMI 35.19 What to do next Scheduled Follow-Up Appointments Tuesday 9:20 AM EDT Where: [facility] [place] [address] [place] [address]- You Need to Complete the Following CBC w/ Auto Diff, Blood, Routine collect, 12/12/24, Order for future visit, Lab Collect, Well woman exam Breast cancer screening Cervical cancer screening, Print Label By Order Location PAP w/ HPV and Genotype rflx, Cervical, Routine collect, 12/12/24, Order for future visit, Nurse collect, Well woman exam Breast cancer screening Cervical cancer screening, Print Label By Order Location, [place] Medications What How Much When Why Instructions Unchanged acyclovir topical (acyclovir Top 5% Crm) 1 Application Topical 5 times a day Unchanged buprenorphine-naloxone (Suboxone 8 mg-2 mg sublingual film) 2 Each Sublingual Every day Unchanged diazepam (diazepam 5 mg Tab) 1 Tablets By Mouth 3 times a day F41.1 Unchanged duloxetine (Cymbalta 30 mg oral delayed release capsule) 1 Capsules By Mouth 2 times a day SAI (generalized anxiety disorder) depression Indwelling Alvares catheter present Lower extremity edema Chronic back pain BMI 35.0-35.9,adult Smoker Unchanged gabapentin (gabapentin 800 mg Tab) 1 Tablets By Mouth 3 times a day Unchanged multivitamin with iron (Geritol oral tablet) 1 Tablets By Mouth Every day Unchanged omeprazole (omeprazole 40 mg Cap-DR) By Mouth Every day Unchanged oxybutynin (oxybutynin 10 mg ER Tab) 1 Tablets By Mouth Every day Unchanged tizanidine (tiZANidine 4 mg Tab) See instructions TAKE 1 TABLET BY MOUTH EVERY 8 HOURS Unchanged zolpidem (Ambien CR 12.5 mg Tab-ER) 1 Tablets By Mouth Once a day (at bedtime) as needed for for sleep Allergies Phenergan codeine penicillins Problems Ongoing - Any problem that you are currently receiving treatment for. BMI 32.0-32.9,adult Breast cancer screening Cellulitis of leg Cervical cancer screening Chronic back pain depression Fibromyalgia SAI (generalized anxiety disorder) Genital herpes History of UTI Incomplete bladder emptying Incontinence without sensory awareness Indwelling Alvares catheter present Intrinsic sphincter deficiency (ISD) Localized swelling of both lower legs Lower extremity edema Smoker SOB (shortness of breath) Urinary incontinence Urinary incontinence without sensory awareness Vaginal yeast infection Well woman exam Historical - Any problem that you are no longer receiving treatment for. compression fractures Opiate misuse Urinary retention Patient Survey You may receive a survey via text or e-mail asking about your office visit. Please share your experience with us by completing your survey. We appreciate your feedback and thank you for choosing us for your care. Andrei [facility] Family Medicine Office/Clini c Noteon 12-12-2024 Family Medicine Office/Clinic Note Family Medicine Office/Clinic Note HPI Staff Morales is a 49 year old female presenting for well woman Woman check up: Last pap: 20 years ago Last Lexy: over 10 years, would like order for [facility] Results of lap pap: normal Where was it done: hx: # of pregnancies..4. abortions... live births..1. living children...1 menstrual cycle (normal,heavy,ect): n/a had hysterectomy History of STD: Herpes Do you want tested for STD today: no Vaginal discharge, odor, itching: no Self breast exam at home? yes Hx of breast, cervical or uterine cancer in the family: no Pt feeling like she has period cramps intermittent History of Present Illness pt presents today for well woman visit Review of Systems PHQ Score Initial Depression Screen Score: 0 SCORE Physical Exam Vitals & Measurements HR: 78(Peripheral) BP: 122/80 SpO2: 96% HT: 154.0 cm HT: 61 in WT: 183.998 lb WT: 83.46 kg BMI: 35.19 General: Well developed, well nourished, in no acute distress Neck: Neck supple. No masses or palpable cervical nodes. Trachea midline. Thyroid without nodules, masses, tenderness, or enlargement Breast: No mass, nodule, discharge, or erythema bilaterally, and no axillary lymphadenopathy Lungs: Normal respiratory effort and clear to auscultation Cardio: Regular rate and rhythm, normal S1 and S2, no murmur, no rub Abdomen: Soft, non-distended, non-tender, normal bowel sounds x4 Gyno: normal external genitalia. Urethra no discharge. Vagina normal without lesions, no vaginal discharge. Hysterectomy Neurologic: Grossly normal Skin: Segundo, moist, no tenting Lymph Nodes: No cervical adenopathy, nodes normal Mental Status: Alert and oriented x3. Normal mood and affect Assessment/Plan 1. Well woman exam (Z01.419: Encounter for gynecological examination (general) (routine) without abnormal findings) pt presents today for well woman visit. pt had total hyst 20 years ago. pap obtained. vaginal and perineal yeast infection noted on exam. will send diflucan in. indwelling alvares cath in place a draining clear yellow urine. BSE discussed. mammogram ordered. RTC as needed Ordered: dicyclomine, 20 mg = 1 tab(s), Oral, BID, PRN Spasm, 30 to 60 minutes before meals for stomach cramping, # 10 tab(s), Refills(s) 0, Pharmacy: [facility], 154, cm, 12/12/24 10:51:00 EDT, Height/Length Dosing, 83.5, kg, 12/12/24 10:51:00 EDT, Weight... fluconazole, 150 mg = 1 tab(s), Oral, Once, take 1 tab on day one and 1 tab on day four, # 2 tab(s), Refills(s) 1, Pharmacy: [facility], 154, cm, 12/12/24 10:51:00 EDT, Height/Length Dosing, 83.5, kg, 12/12/24 10:51:00 EDT, Weight Dosing furosemide, 20 mg = 1 tab(s), Oral, Daily, # 30 tab(s), Refills(s) 0, Pharmacy: [facility], 154, cm, 12/12/24 10:51:00 EDT, Height/Length Dosing, 83.5, kg, 12/12/24 10:51:00 EDT, Weight Dosing CBC w/ Auto Diff CBC w/ Auto Diff Comprehensive Metabolic Panel ECG 12 Lead Adult Echo Transthoracic Complete Est Preventative 40 to 64 years [address] PAP w/ HPV and Genotype rflx 2. Breast cancer screening (Z12.39: Encounter for other screening for malignant neoplasm of breast) order for mammogram provieded Ordered: dicyclomine, 20 mg = 1 tab(s), Oral, BID, PRN Spasm, 30 to 60 minutes before meals for stomach cramping, # 10 tab(s), Refills(s) 0, Pharmacy: [facility], 154, cm, 12/12/24 10:51:00 EDT, Height/Length Dosing, 83.5, kg, 12/12/24 10:51:00 EDT, Weight... fluconazole, 150 mg = 1 tab(s), Oral, Once, take 1 tab on day one and 1 tab on day four, # 2 tab(s), Refills(s) 1, Pharmacy: [facility], 154, cm, 12/12/24 10:51:00 EDT, Height/Length Dosing, 83.5, kg, 12/12/24 10:51:00 EDT, Weight Dosing furosemide, 20 mg = 1 tab(s), Oral, Daily, # 30 tab(s), Refills(s) 0, Pharmacy: [facility], 154, cm, 12/12/24 10:51:00 EDT, Height/Length Dosing, 83.5, kg, 12/12/24 10:51:00 EDT, Weight Dosing CBC w/ Auto Diff CBC w/ Auto Diff Comprehensive Metabolic Panel ECG 12 Lead Adult Echo Transthoracic Complete Est Preventative 40 to 64 years [address] PAP [id number] w/ HPV and Genotype rflx 3. Cervical cancer screening (Z12.4: Encounter for screening for malignant neoplasm of cervix) pap obtained. pt had hyst 20 years ago Ordered: dicyclomine, 20 mg = 1 tab(s), Oral, BID, PRN Spasm, 30 to 60 minutes before meals for stomach cramping, # 10 tab(s), Refills(s) 0, Pharmacy: [facility], 154, cm, 12/12/24 10:51:00 EDT, Height/Length Dosing, 83.5, kg, 12/12/24 10:51:00 EDT, Weight... fluconazole, 150 mg = 1 tab(s), Oral, Once, take 1 tab on day one and 1 tab on day four, # 2 tab(s), Refills(s) 1, Pharmacy: [facility], 154, cm, 12/12/24 10:51:00 EDT, Height/Length Dosing, 83.5, kg, 12/12/24 10:51:00 EDT, Weight Dosing furosemide, 20 mg = 1 tab(s), Oral, Daily, # 30 tab(s), Refills(s) 0, Pharmacy: [facility], 154, cm, 12/12/24 10:51:00 EDT, Height/Length Dosin (more content not included)... Normal [facility] Comment on above: Result Comment: Elec tronically Signed By: Deirdre Hale\.br\Date and Time Signed: 12/12/24 14:53 EDT PAP [id number] 12-12-2024 Gynecological Body Site [facility] Normal [facility] Comment on above: Order Comment: had t otal hyst 20 years ago Performed By: #### 1 [id number] #### [facility] [address] [place] [address] Ambulatory Visit Summaryon 0 10-31-2024 Ambulatory Visit Summary Ambulatory Visi t Summary MORALES LEE :1975 Visit Date:10/31/2024 Ambulatory Visit Instructions Your Diagnosis Indwelling Alvares catheter present BMI 35.0-35.9,adult Smoker Your Care Team Attending Physician - Deirdre Hale Primary Care Physician - BIN HARKINS, [facility] This Is Your Medications List buprenorphine-naloxone (Suboxone 8 mg-2 mg sublingual film) diazepam (diazepam 5 mg Tab) gabapentin (gabapentin 800 mg Tab) multivitamin with iron (Geritol oral tablet) omeprazole (omeprazole 40 mg Cap-DR) oxybutynin (oxybutynin 10 mg ER Tab) tizanidine (tiZANidine 4 mg Tab) zolpidem (Ambien CR 12.5 mg Tab-ER) Procedures Performed Appendectomy, Cholecystectomy, Hernia, Hysterectomy, mylogr. Discharge Vitals Heart Rate (Peripheral) 68 Respiratory Rate 18 Blood Pressure 110/78 Height 154 cm Height 61 in Weight 83.5 kg Weight 184.086 lb BMI 35.21 What to do next Scheduled Follow-Up Appointments Tuesday 9:30 AM EDT With: Where: [facility] Tuesday 9:00 AM EDT With: Where: [facility] Tuesday 9:00 AM EDT With: Where: [facility] Tuesday 11:20 AM EDT With: Deirdre Hale Where: [address] [address]- Tuesday 11:40 AM EDT With: Deirdre aHle Where: [address] [address]- Medications What How Much When Instructions Unchanged buprenorphine-naloxone (Suboxone 8 mg-2 mg sublingual film) 2 Each Sublingual Every day Unchanged diazepam (diazepam 5 mg Tab) 1 Tablets By Mouth 3 times a day Unchanged gabapentin (gabapentin 800 mg Tab) 1 Tablets By Mouth 3 times a day Unchanged multivitamin with iron (Geritol oral tablet) 1 Tablets By Mouth Every day Unchanged omeprazole (omeprazole 40 mg Cap-DR) By Mouth Every day Unchanged oxybutynin (oxybutynin 10 mg ER Tab) 1 Tablets By Mouth Every day Unchanged tizanidine (tiZANidine 4 mg Tab) TAKE 1 TABLET BY MOUTH EVERY 8 HOURS NEEDED (do not exceed 3 (THREE) doses in 24 HOURS) - MUST LAST 30 DAYS Unchanged zolpidem (Ambien CR 12.5 mg Tab-ER) 1 Tablets By Mouth Once a day (at bedtime) as needed for for sleep Allergies Phenergan codeine penicillins Problems Ongoing - Any problem that you are currently receiving treatment for. BMI 32.0-32.9,adult Chronic back pain Fibromyalgia Genital herpes History of UTI Incomplete bladder emptying Incontinence without sensory awareness Indwelling Alvares catheter present Intrinsic sphincter deficiency (ISD) Smoker Urinary incontinence Urinary incontinence without sensory awareness Historical - Any problem that you are no longer receiving treatment for. compression fractures depression Opiate misuse Urinary retention Patient Survey You may receive a survey via text or e-mail asking about your office visit. Please share your experience with us by completing your survey. We appreciate your feedback and thank you for choosing us for your care. Normal [facility] Family Medicine Office/Clini c Noteon 10-31-2024 Family Medicine Office/Clinic Note Family Medicine Office/Clinic Note HPI Staff Morales is a 49 year old female presenting to [facility] care Establish Care: History: Any previous diagnosis: HTN, Insomnia (Pt has indwelling catheter), Anxiety History of seeing any specialist: Urology Rosio Ace, Neurosurgeon Dr elsa frederick , Clinic in [facility] for Suboxone When was your last doctors visit: Last provider: Bin Any recent labs: Health Maintenance UTD: Colonoscopy: yes, normal (age 24) Mammogram: 15 years ago Pelvic/Pap: 26 years old Acute: Current issues/complaints: Pt states she needs refill on medication all but oxybutynin, gabapentin. History of Present Illness pt presents today to establish care. multiple refills needed. Review of Systems PHQ Score Initial Depression Screen Score: 0 SCORE Physical Exam Vitals & Measurements HR: 68(Peripheral) RR: 18 BP: 110/78 SpO2: 94% HT: 61 in HT: 154 cm WT: 83.5 kg WT: 184.086 lb BMI: 35.21 General: alert, no acute distress ENMT: oral mucosa moist, no pharyngeal erythema or exudate Cardiovascular: regular rate and rhythm, normal peripheral perfusion Respiratory: Lungs CTA, respirations non labored Extremities: no deformity, no trauma Neurological: oriented x 4, LOC appropriate for age, CN II-XII intact, motor strength equal & normal bilaterally, speech normal indwelling alvares catheter intact, draining clear yellow urine CHATO LE 1 +pitting edema Assessment/Plan 1. SAI (generalized anxiety disorder) (F41.1: Generalized anxiety disorder) pt has been on prozac and cymbalta in the past. is currently not taking any medicaitons for anxiety/depression daily. will restart cymbalta. will also restart valium. RTC 4 weeks for follow up. drug screen obtained. medicaiton agreement signed. all questions answered. RTC for well woman visit Ordered: duloxetine, 30 mg = 1 cap(s), Oral, BID, # 60 cap(s), Refills(s) 0, Pharmacy: [facility], 154, cm, 10/31/24 13:29:00 EST, Height/Length Dosing, 83.5, kg, 10/31/24 13:29:00 EST, Weight Dosing 2. depression (F32.A: Depression, unspecified) see above Ordered: duloxetine, 30 mg = 1 cap(s), Oral, BID, # 60 cap(s), Refills(s) 0, Pharmacy: [facility], 154, cm, 10/31/24 13:29:00 EST, Height/Length Dosing, 83.5, kg, 10/31/24 13:29:00 EST, Weight Dosing 3. Indwelling Alvares catheter present (Z97.8: Presence of other specified devices) pt had 3 back surgeries. when she woke up from third surgery she no longer has control of bladder. is currently followed by urology. UDS obtained from alvares bag. . urine is clear yellow Ordered: duloxetine, 30 mg = 1 cap(s), Oral, BID, # 60 cap(s), Refills(s) 0, Pharmacy: [facility], 154, cm, 10/31/24 13:29:00 EST, Height/Length Dosing, 83.5, kg, 10/31/24 13:29:00 EST, Weight Dosing Drug Screen POC [id number] 4. Lower extremity edema (R60.0: Localized edema) pt states the last couple of days her lower legs started swelling again. she took a lasix but then had spasms in bladder. encouraged her to cut the pill in half Ordered: duloxetine, 30 mg = 1 cap(s), Oral, BID, # 60 cap(s), Refills(s) 0, Pharmacy: [facility], 154, cm, 10/31/24 13:29:00 EST, Height/Length Dosing, 83.5, kg, 10/31/24 13:29:00 EST, Weight Dosing 5. Chronic back pain (M54.9: Dorsalgia, unspecified) OARRS report reviewed. pt was previously treated by Dr. Arredondo for pain. was on large amounts of narcotics. is now taking suboxone. UDS + for BUP and Benzodiazipines. Dr. Obrien was managing her pain with valium but he has since left the area. discussed controlled substances at length. pt is also asking for refill of ambien. I informed her I am not comfortable prescribing yet another controlled substance at this time. pt is understanding. Ordered: duloxetine, 30 mg = 1 cap(s), Oral, BID, # 60 cap(s), Refills(s) 0, Pharmacy: [facility], 154, cm, 10/31/24 13:29:00 EST, Height/Length Dosing, 83.5, kg, 10/31/24 13:29:00 EST, Weight Dosing 6. BMI 35.0-35.9,adult (Z68.35: Body mass index [BMI] 35.0-35.9, adult) BMI education given Ordered: duloxetine, 30 mg = 1 cap(s), Oral, BID, # 60 cap(s), Refills(s) 0, Pharmacy: [facility], 154, cm, 10/31/24 13:29:00 EST, Height/Length Dosing, 83.5, kg, 10/31/24 13:29:00 EST, Weight Dosing 7. Smoker (F17.200: Nicotine dependence, unspecified, uncomplicated) consider not smoking Ordered: duloxetine, 30 mg = 1 cap(s), Oral, BID, # 60 cap(s), Refills(s) 0, Pharmacy: [facility], 154, cm, 10/31/24 13:29:00 EST, Height/Length Dosing, 83.5, kg, 10/31/24 13:29:00 EST, Weight Dosing Orders: diazepam, 5 mg = 1 tab(s), Oral, TID, # 90 tab(s), Refills(s) 0, Pharmacy: [facility], 154, cm, 10/31/24 13:29:00 EST, Height/Length Dosing, 83.5, kg, 10/31/24 13:29:00 EST, Weight Dosing Follow-up No qualifying data available Problem List/Past Medical History Ongoing BMI 32.0-32.9,adult Chronic (more content not included)... Normal [facility] Comment on above: Result Comment: Elec tronically Signed By: Deirdre Hale\.br\Date and Time Signed: 10/31/24 14:46 EST CBC AND AUTO DIFFon 10-01-19 ABSOLUTE BASOPHIL 0.1 X10E9/L Normal 0.0-0.2 [facility] Comment on above: Performed By: #### C BCA, CMP, 3040-3, 21632-0, 71104-5, THYR #### ([id number]) [address] [place] [id number] ABSOLUTE NEUTROPHIL 8.0 X10E9/L High 1.5-6.6 [facility] Comment on above: Performed By: #### C BCA, CMP, 3040-3, 81252-0, 75430-6, THYR #### ([id number]) [address] [place] [phone] Basophils/100 WBC (Bld) 0.7 % Normal [facility] Comment on above: Performed By: #### C BCA, CMP, 3040-3, 72212-4, 57596-0, THYR #### ([id number]) [address] [place] [id number] Eosinophils (Bld) [#/Vol] 0.3 10*3/uL Normal 0.0-0.4 [facility] Comment on above: Performed By: #### C BCA, CMP, 3040-3, 88351-3, 68429-8, THYR #### ([id number]) [address] [place] [address] Eosinophils/100 WBC (Bld) 2.7 % Normal [facility] Comment on above: Performed By: #### C BCA, CMP, 3040-3, 79724-8, 73302-4, THYR #### ([id number]) [address] [place] [phone] Erythrocyte distribution width (RBC) [Ratio] 18.6 % High 11.5-15.0 [facility] Comment on above: Performed By: #### C BCA, CMP, 3040-3, 42475-6, 23194-6, THYR #### ([id number]) [address] [place] [address] Hematocrit (Bld) [Volume fraction] 47.5 % High 35-47 [facility] Comment on above: Performed By: #### C BCA, CMP, 3040-3, 91506-2, 36950-0, THYR #### ([id number]) [address] [place] [address] Hemoglobin (Bld) [Mass/Vol] 16.6 g/dL High 11.7-15.5 [facility] Comment on above: Performed By: #### C BCA, CMP, 3040-3, 97467-4, 92528-0, THYR #### ([id number]) [address] [place] [address] Lymphocytes (Bld) [#/Vol] 3.8 10*3/uL High 1.0-3.5 [facility] Comment on above: Performed By: #### C BCA, CMP, 3040-3, 03694-8, 79201-5, THYR #### ([id number]) [address] [place] [address] Lymphocytes/100 WBC (Bld) 29.6 % Normal [facility] Comment on above: Performed By: #### C BCA, CMP, 3040-3, 33907-8, 51872-1, THYR #### ([id number]) [address] [place] [address] 00034 MCH (RBC) [Entitic mass] 29.4 pg Normal 27-34 [facility] Comment on above: Performed By: #### C BCA, CMP, 3040-3, 59584-4, 74436-9, THYR #### ([id number]) [address] [place] [address] 95938 MCHC (RBC) [Mass/Vol] 34.9 g/dL Normal 32-36 [facility] Comment on above: Performed By: #### C BCA, CMP, 3040-3, 51758-0, 17091-8, THYR #### ([id number]) [address] [place] [address] 16377 MCV (RBC) [Entitic vol] 84 fL Normal 80-[address] [facility] Comment on above: Performed By: #### C ALONZO, CMP, 3040-3, 67537-3, 60010-9, THYR #### ([id number]) [address] [place] [address] 86574 Monocytes (Bld) [#/Vol] 0.6 10*3/uL Normal 0-0.9 [facility] Comment on above: Performed By: #### C ALONZO, CMP, 3040-3, 83415-1, 62313-2, THYR #### ([id number]) [address] [place] [address] 73937 Monocytes/100 WBC (Bld) 4.6 % Normal [facility] Comment on above: Performed By: #### C ALONZO, CMP, 3040-3, 72333-4, 81625-0, THYR #### ([id number]) [address] [place] [address] 94733 Neutrophils/100 WBC (Bld) 62.4 % Normal [facility] Comment on above: Performed By: #### Elenita BCA, CMP, 3040-3, 58582-2, 18360-5, THYR #### ([id number]) [address] [place] [address] 76888 Platelet mean volume (Bld) [Entitic vol] 8.2 fL Normal 7-12 [facility] Comment on above: Performed By: #### C BCA, CMP, 3040-3, 72645-5, 45156-4, THYR #### ([id number]) [address] [place] [address] 33501 Platelets (Bld) [#/Vol] 296 10*3/uL Normal 150-450 [facility] Comment on above: Performed By: #### C ALONZO, CMP, 3040-3, 84771-2, 94271-7, THYR #### ([id number]) [address] [place] [address] 59600 RBC COUNT 5.64 X10E12/L High 3.80-5.20 [facility] Comment on above: Performed By: #### C ALONZO, CMP, 3040-3, 01764-7, 25091-6, THYR #### ([id number]) [address] [place] [address] 77271 WBC (Bld) [#/Vol] 12.9 10*3/uL High 4.0-11.0 [facility] Comment on above: Performed By: #### C ALONZO, [facility], 3040-3, 62597-4, 44839-2, THYR #### ([id number]) [address] [place] [address] 61106 CBC auto differentialon 09-06 Basophils (Bld) [#/Vol] 0.1 10*3/uL [facility] Basophils/100 WBC (Bld) 0.7 % [facility] Eosinophils (Bld) [#/Vol] 0.3 10*3/uL [facility] Eosinophils/100 WBC (Bld) 2.7 % [facility] Erythrocyte distribution width (RBC) [Ratio] 18.6 % High 11.5 - 15.0 % [facility] Hematocrit (Bld) [Volume fraction] 47.5 % High 35 - 47 % [facility] Hemoglobin (Bld) [Mass/Vol] 16.6 g/dL High 11.7 - 15.5 g/dL [facility] Interpretation and review of laboratory results Abnormal [facility] Lymphocytes (Bld) [#/Vol] 3.8 10*3/uL High [facility] Lymphocytes/100 WBC (Bld) 29.6 % [facility] MCH (RBC) [Entitic mass] 29.4 pg 27 - 34 pg [facility] MCHC (RBC) [Mass/Vol] 34.9 g/dL 32 - 3 6 g/dL [facility] MCV (RBC) [Entitic vol] 84 fL 80 - 100 fL [facility] Monocytes (Bld) [#/Vol] 0.6 10*3/uL [facility] Monocytes/100 WBC (Bld) 4.6 % [facility] Neutrophils (Bld) [#/Vol] 8 10*3/uL [facility] Neutrophils/100 WBC (Bld) 62.4 % [facility] Platelet mean volume (Bld) [Entitic vol] 8.2 fL 7 - 12 fL [facility] Platelets (Bld) [#/Vol] 296 10*3/uL [facility] RBC (Bld) [#/Vol] 5.64 10*6/uL High [facility] WBC corrected for nucl RBC Auto (Bld) [#/Vol] 12.9 High [facility] COMPREHENSIVE METABOLIC PANE Geoff 10-01-2024 Albumin [Mass/Vol] 5.0 g/dL Normal 3.2-5.3 [facility] Comment on above: Performed By: #### C BCA, CMP, 3040-3, 81103-1, 80426-4, THYR #### ([id number]) [address] [place] [address] 60481 ALP [Catalytic activity/Vol] 173 U/L High 39-130 [facility] Comment on above: Performed By: #### C BCA, CMP, 3040-3, 48409-1, 48068-9, THYR #### ([id number]) [address] [place] [address] 74304 ALT [Catalytic activity/Vol] 21 U/L Normal 0-31 [facility] Comment on above: Performed By: #### C BCA, CMP, 3040-3, 28447-9, 21106-2, THYR #### ([id number]) [address] [place] [address] 33680 Anion gap [Moles/Vol] 10 mmol/L Normal 5-15 [facility] Comment on above: Performed By: #### C BCA, CMP, 3040-3, 76252-5, 52053-6, THYR #### ([id number]) [address] [place] [address] 09428 AST [Catalytic activity/Vol] 38 U/L Normal 0-41 [facility] Comment on above: Performed By: #### C BCA, CMP, 3040-3, 75385-4, 79670-7, THYR #### ([id number]) [address] [place] [address] 03625 Bilirubin [Mass/Vol] 1.2 mg/dL Normal 0.3-1.2 [facility] Comment on above: Performed By: #### C BCA, CMP, 3040-3, 33516-1, 82934-4, THYR #### ([id number]) [address] [place] [address] 43799 Calcium [Mass/Vol] 9.8 mg/dL Normal 8.5-10.5 [facility] Comment on above: Performed By: #### C BCA, CMP, 3040-3, 34156-6, 14233-5, THYR #### ([id number]) [address] [place] [address] 38891 Chloride [Moles/Vol] 100 mmol/L Normal 98-109 [facility] Comment on above: Performed By: #### C BCA, CMP, 3040-3, 12899-0, 76793-1, THYR #### ([id number]) [address] [place] [address] 16365 CO2 [Moles/Vol] 26 mmol/L Normal 22-32 [facility] Comment on above: Performed By: #### C BCA, CMP, 3040-3, 40661-5, 36738-5, THYR #### ([id number]) [address] [place] [address] 54070 Creatinine [Mass/Vol] 0.81 mg/dL Normal 0.40-1.00 [facility] Comment on above: Result Comment: METH OD TRACEABLE TO IDMS STANDARD Performed By: #### C ALONZO, CMP, 3040-3, 26001-1, 38425-9, THYR #### ([id number]) [address] [place] [address] 62146 GFR/1.73 sq M.predicted among non-blacks MDRD (S/P/Bld) [Vol rate/Area] 88 mL/min/{1.73_m2} Normal >59 [facility] Comment on above: Result Comment: Reported eGFR is based on the CKD-EPI 2020 equation that does not use a race coefficient. Performed By: #### C ALONZO, CMP, 3040-3, 03715-3, 15137-4, THYR #### ([id number]) [address] [place] [address] 70494 Glucose [Mass/Vol] 103 mg/dL High 65-99 [facility] Comment on above: Performed By: #### C BCA, CMP, 3040-3, 28736-3, 33636-0, THYR #### ([id number]) [address] [place] [address] 85800 Potassium [Moles/Vol] 3.4 mmol/L Low 3.5-5.0 [facility] Comment on above: Performed By: #### C BCA, CMP, 3040-3, 85004-2, 77909-7, THYR #### ([id number]) [address] [place] [address] 01229 Protein [Mass/Vol] 9.3 g/dL High 6.0-8.0 [facility] Comment on above: Performed By: #### C BCA, CMP, 3040-3, 52717-0, 12234-2, THYR #### ([id number]) [address] [place] [address] 19857 Sodium [Moles/Vol] 136 mmol/L Normal 134-146 [facility] Comment on above: Performed By: #### C BCA, CMP, 3040-3, 64256-5, 11955-7, THYR #### ([id number]) [address] [place] [address] 20848 Urea nitrogen [Mass/Vol] 8 mg/dL Normal 5-23 [facility] Comment on above: Performed By: #### C BCA, CMP, 3040-3, 07616-3, 57360-9, THYR #### ([id number]) [address] [place] [address] LUMBAR SPINE WO CONTon CT LUMBAR [...] Finney MD on 10/01/2024 1:05 AM Normal [facility] CT Lumbar spine WO contrasto [...] Balbir Finney MD on 10/01/2024 1:05 AM [facility] Balbir Finney MD - 10/01/2024 EXAM: CT [...] Balbir Finney MD on 10/01/2024 1:05 AM [facility] Radiology Study observation (narrative) [facility] CT Lumbar spine WO contrastO rdered By: Balbir Finney on 10-01-2024 [facility] Work Phone: CT THORACIC SPINE WO CONTon 10-01-2024 CT THORACIC SPINE WO CONT CT THORACIC SPINE WO CONT *ADDENDUM*ADDENDUM: Fusion of the thoracolumbar spine is seen extending to S1 on the dedicated CT of the lumbar spine also performed on 10/01/2024. Impression: See above. Finalized by Balbir Finney MD on 10/01/2024 1:05 AM Normal [facility] CT Thoracic spine WO contras ton 10-01-2024 Addendum by Balbir Finney MD on 10/01/2024 1:05 AM EST *ADDENDUM*ADDENDUM: Fusion of the thoracolumbar spine is seen extending to S1 on the dedicated CT of the lumbar spine also performed on 10/01/2024. Impression: See above. Finalized by Balbir Finney MD on 10/01/2024 1:05 AM [facility] EXAM: CT THORACIC SP INE WITHOUT [...] Balbir Finney MD on 10/01/2024 1:01 AM [facility] Balbir Finney MD - 10/01/2024 EXAM: CT [...] Balbir Finney MD on 10/01/2024 1:01 AM [facility] Radiology Study observation (narrative) [facility] Comprehensive metabolic pane geoff 10-01-2024 Albumin [Mass/Vol] 5 g/dL 3.2 - 5.3 g/dL [facility] ALP [Catalytic activity/Vol] 173 U/L High 39 - 130 U/L [facility] ALT No additional P-5'-P [Catalytic activity/Vol] 21 U/L 0 - 31 U/L [facility] Anion gap [Moles/Vol] 10 mmol/L 5 - 15 mmol/L [facility] AST [Catalytic activity/Vol] 38 U/L 0 - 41 U/L [facility] Bilirubin [Mass/Vol] 1.2 mg/dL 0.3 - 1 .2 mg/dL [facility] Calcium [Mass/Vol] 9.8 mg/dL 8.5 - 10. 5 mg/dL [facility] Chloride [Moles/Vol] 100 mmol/L 98 - 10 9 mmol/L [facility] CO2 [Moles/Vol] 26 mmol/L 22 - 32 mmol/L [facility] Creatinine [Mass/Vol] 0.81 mg/dL 0.40 - 1.00 mg/dL [facility] Comment on above: METHOD TRACEABLE TO [facility] STANDARD eGFR (CKD-EPI)non-race dependent 88 - PINF [facility] Comment on above: Reported eGFR is based on the CKD-EPI 2020 equation that does not use a race coefficient. Glucose [Mass/Vol] 103 mg/dL High 65 - 99 mg/dL [facility] Interpretation and review of laboratory results Abnormal [facility] Potassium [Moles/Vol] 3.4 mmol/L Low 3.5 - 5.0 mmol/L [facility] Protein [Mass/Vol] 9.3 g/dL High 6.0 - 8.0 g/dL [facility] Sodium [Moles/Vol] 136 mmol/L 134 - 146 mmol/L [facility] Urea nitrogen [Mass/Vol] 8 mg/dL 5 - 23 mg/dL [facility] LIPASEon 10-01-2024 Lipase [Catalytic activity/Vol] 30 U/L Normal 17-40 [facility] Comment on above: Performed By: #### C BCA, CMP, 3040-3, 45309-3, 51618-8, THYR #### ([id number]) [address] [place] [address] [place] [address] Laboratory - Microbiology an d Antimicrobial susceptibilityon 10-01-2024 FLUAV+FLUBV RNA ADRIÁN+probe Ql (Unsp spec) Negative Negative^N egative [facility] Lipaseon 10-01-2024 Lipase [Catalytic activity/Vol] 30 U/L 17 - 40 U/L [facility] Lipase [Catalytic activity/V ol]on 10-01-2024 [facility] MAGNESIUMon 10-01-2024 Magnesium [Mass/Vol] 2.0 mg/dL Normal 1.8-2.6 [facility] Comment on above: Performed By: #### C BCA, CMP, 3040-3, 56242-5, 02009-5, THYR #### ([id number]) [address] [facility] [place] [address] Magnesiumon 10-01-2024 Magnesium [Mass/Vol] 2 mg/dL 1.8 - 2 .6 mg/dL [facility] No Panel Informationon 10-01 [facility] SARS/FLU A+B/RSV by NAAT/Mol ecularon 10-01-2024 SARS/FLU [...] operators who are performing tests using either [employer] or [employer] systems and is limited to laboratories that [...] repeat. Fact Sheet for Healthcare Providers: https://www.fda.gov/media /957423/download Fact Sheet for Patients: https://www.fda.gov/media /237652/download Normal [facility] SARS/FLU A+B/RSV by NAAT/Mol ecular (M4RT Collection Tube)on 10-01-2024 RSV RNA ADRIÁN+probe Nom (Unsp spec) Negative Negative^N egative [facility] SARS-CoV-2 (COVID-19) RNA ADRIÁN+probe Ql (Resp) Not detected Not Detected^N ot Detected [facility] Comment on above: NOTE The Xpert Xpress [...] operators who are performing tests using either [employer] or [employer] systems and is limited to laboratories that [...] specimen repeat. Fact Sheet for Healthcare Providers: https://www.fda.gov/media/446703/download Fact Sheet for Patients: https://www.fda.gov/media/515332/download [facility] THYROID PROFILEon 10-01-2024 Free T4 [Mass/Vol] 1.14 ng/dL Normal 0.61-1.60 [facility] Comment on above: Performed By: #### C DARIUS ROSADO, 3040-3, 56372-5, 00687-1, THYR #### ([id number]) [address] [place] [address] 38148 TSH 3.02 uIU/mL Normal 0.49-4.67 [facility] Comment on above: Performed By: #### C ALONZO, DARIUS, 3040-3, 51360-4, 21318-4, THYR #### ([id number]) [address] [place] [address] 73247 Thyroid profile includes TSH FT4on 10-01-2024 Free T4 [Mass/Vol] 1.14 ng/dL 0.61 - 1.60 ng/dL [facility] TSH Qn 3.02 m[IU]/L [facility] Troponin I, High Sensitivity on 10-01-2024 Troponin I.cardiac High sensitivity method [Mass/Vol] ng/L [facility] ng/L [facility] Troponin I, High Sensitivity 1 Houron 10-01-2024 Troponin I.cardiac High sensitivity method [Mass/Vol] ng/L NINF - 16 ng/L [facility] Troponin I.cardiac High sens itivity method [Mass/Vol]on 10-01-2024 [facility] 1 HOUR TROP I, HIGH SENSITIVITY <2 Normal <16 [facility] Comment on above: Performed By: #### C ALONZO, CMP, 3040-3, 41031-6, 29552-9, THYR #### ([id number]) [address] [place] [address] 64694 [facility] TROPONIN I, HIGH SENSITIVITY <2 Normal <16 [facility] Comment on above: Performed By: #### C BCA, CMP, 3040-3, 29615-1, 76834-4, THYR #### ([id number]) [address] [place] [address] [place] [address] URINALYSISon 10-01-2024 Bilirubin Ql (U) Negative Normal NEG [facility] Comment on above: Performed By: #### C BCA, CMP, 3040-3, 36828-2, 57831-1, THYR #### ([id number]) [address] [place] [address] [place] [address] BLOOD/HGB Trace Abnormal NEG [facility] Comment on above: Performed By: #### C BCA, CMP, 3040-3, 88217-5, 26038-8, THYR #### ([id number]) [address] [place] [address], [place] [address] Color (U) YELLOW Normal YELLOW [facility] Comment on above: Performed By: #### C BCA, CMP, 3040-3, 87415-4, 81693-0, THYR #### ([id number]) [address] [place] [address] [place] [address] Glucose Ql (U) Negative Normal NEG [facility] Comment on above: Performed By: #### C BCA, CMP, 3040-3, 68731-1, 21307-5, THYR #### ([id number]) [address] [place] [address], [place] [address] Ketones Ql (U) Negative Normal NEG [facility] Comment on above: Performed By: #### C BCA, CMP, 3040-3, 92191-4, 16126-5, THYR #### ([id number]) [address] [place] [address] [place] [address] Leukocyte esterase Test strip Ql (U) SMALL Abnormal NEG [facility] Comment on above: Performed By: #### C BCA, CMP, 3040-3, 47209-5, 15737-2, THYR #### ([id number]) [address] [place] [address] 43903 Nitrite Ql (U) Negative Normal NEG [facility] Comment on above: Performed By: #### C BCA, CMP, 3040-3, 55436-2, 36433-0, THYR #### ([id number]) [address] [place] [address] 42236 pH (U) 6.0 [pH] Normal 5.0-8.5 [facility] Comment on above: Performed By: #### C BCA, CMP, 3040-3, 54080-5, 01640-0, THYR #### ([id number]) [address] [place] [address] 46736 Protein Ql (U) Negative Normal NEG [facility] Comment on above: Performed By: #### C BCA, CMP, 3040-3, 21380-9, 97422-6, THYR #### ([id number]) [address] [place] [address] 52433 R.B.CELLS 1 /hpf Normal 0-5 [facility] Comment on above: Performed By: #### C BCA, CMP, 3040-3, 31036-3, 09014-1, THYR #### ([id number]) [address] [place] [address] 06832 Specific gravity (U) [Rel density] <1.005 Normal 1.003-1.03 5 [facility] Comment on above: Performed By: #### C BCA, CMP, 3040-3, 34347-5, 28280-2, THYR #### ([id number]) [address] [place] [address] 38592 SQUAMOUS EPITHELIUM 1 /hpf Normal 0-5 [facility] Comment on above: Performed By: #### C BCA, CMP, 3040-3, 45012-6, 51481-6, THYR #### ([id number]) [address] [place] [address] 78829 TURBIDITY CLEAR Normal CLEAR [facility] Comment on above: Performed By: #### C BCA, CMP, 3040-3, 37569-2, 84844-7, THYR #### ([id number]) [address] [place] [address] 28528 Urobilinogen Qn (U) 0.2 {Tesha'U}/dL Normal <1.1 [facility] Comment on above: Performed By: #### C BCA, CMP, 3040-3, 13351-0, 74159-5, THYR #### ([id number]) [address] [place] [address] 54199 W.B.CELLS 2 /hpf Normal 0-5 [facility] Comment on above: Performed By: #### C BCA, CMP, 3040-3, 04471-1, 55029-5, THYR #### ([id number]) [address] [place] [address] 36640 URINE CULTUREon 10-01-2024 Bacteria identified Cx Nom (U) CULTURE RESULTS 10-50,000 ORGANISMS/mL NORMAL UROGENITAL ROSANNA Normal [facility] Comment on above: Performed By: #### C BCA, CMP, 3040-3, 75660-6, 40736-8, THYR #### ([id number]) [address] [place] [address] 38405 Urinalysison 10-01-2024 Bilirubin Ql (U) Negative Negative^N egative [facility] Color (U) YELLOW YELLOW^YEL LOW [facility] Epithelial cells Auto (Urine sed) [#/Area] 1 [facility] Glucose (U) [Mass/Vol] Negative Negat magda^N egative mg/dL [facility] Hemoglobin Auto test strip Ql (U) Trace Abnormal Negative^N egative [facility] Interpretation and review of laboratory results Abnormal [facility] Ketones (U) [Mass/Vol] Negative Negat magda^N egative mg/dL [facility] Leukocyte esterase Auto test strip Ql (U) SMALL Abnormal Negative^N egative [facility] Nitrite Auto test strip Ql (U) Negative Negative^N egative [facility] pH (U) 6 [pH] 5.0 - 8.5 [facility] Protein (U) [Mass/Vol] Negative Negat magda^N egative mg/dL [facility] RBC Auto (Urine sed) [#/Area] 1 [facility] Specific gravity Refractometry automated (U) [Rel density] 1.003 - 1.035 [facility] Turbidity Ql (U) CLEAR CLEAR^GUERO R [facility] Urobilinogen Qn (U) 0.[address] [facility] WBC Auto (Urine sed) [#/Area] 2 [facility] XR CHEST 1 VWon 10-01-2024 XR CHEST [...] Velazquez MD on 10/01/2024 1:04 AM Normal [facility] XR Chest Single viewon 10-01 HISTORY: Chest pain COMPARISON: Chest x-ray 10/25/2014 FINDINGS: AP semiupright view of the chest was performed. Cardiac silhouette is within normal limits. No significant airspace consolidation or vascular congestion. No pleural effusion or pneumothorax. Intact cervical and thoracic fusion hardware. IMPRESSION: * No acute abnormality. Finalized by Sanchez Velazquez MD on 10/01/2024 1:04 AM [facility] Sanchez Velazquez M D - 10/01/2024 HISTORY: Chest pain COMPARISON: Chest x-ray 10/25/2014 FINDINGS: AP semiupright view of the chest was performed. Cardiac silhouette is within normal limits. No significant airspace consolidation or vascular congestion. No pleural effusion or pneumothorax. Intact cervical and thoracic fusion hardware. IMPRESSION: * No acute abnormality. Finalized by Sanchez Velazquez MD on 10/01/2024 1:04 AM [facility] Study observation (narrative) [facility] XR Chest Single viewOrdered By: Sanchez Velazquez on 10-01-2024 [facility] Work Phone: Urine Cultureon 09-01-2024 Bacteria identified Cx Nom (U) No Growth 2 Days PERFORMED BY: [place] [address] PATHOLOGIST [employer]PER[employer] ISMAEL ELIZABETH M.D. Normal [facility] Comment on above: Performed By: #### C UU #### [address] COMPLIANCE DRUG ANALYSIS, UR on 05-22-2024 SUMMARY [...] consultation, please call . ======= Performed at: [employer] [address] [id number] [employer] Mark[employer]: Neli Kearney [facility], Phone: [phone] Specimen Comment: [employer], [employer] FLEX or MAT drug testin Specimen Comment: -Technical component - Data analysis performed at Specimen Comment: [facility] [place], [address] [place] [address], [place], [place] Specimen Comment: [id number]. [phone] [employer] James Barrera MD. [facility] Drugs of abuse panel Screen (U)on 05-18-2024 Amphetamines Ql (U) N [facility] Barbiturates Ql (U) N [facility] Benzodiazepines Ql (U) P [facility] Benzoylecgonine Ql (U) N [facility] Carboxy tetrahydrocannabinol (Mec) [Mass/Mass] N [facility] Interpretation and review of laboratory results Abnormal [facility] Methadone (U) [Mass/Vol] N [facility] Methylenedioxymethamphet amine Screen Ql (U) N [facility] Morphine (U) [Mass/Vol] N [facility] Opiates Ql (U) N [facility] oxyCODONE Ql (U) P [facility] Phencyclidine Ql (U) N [facility] Test ID P [facility] Tricyclic antidepressants [Mass/Vol] N [facility] CULTURE URINEon 01-16-2023 CULTURE URINE Isolate 1 [...] R F Nitrofurantoin <=16 S F Normal [facility] Comment on above: Performed By: #### U MICRO, ERUR #### [facility] [address] [place] [address] Dr. Alfredo Lizama CBC AUTO DIFFon 01-13-2023 BASO # 0.1 103/ul Normal 0.0-0.1 [facility] Comment on above: Performed By: #### U MICRO, ERUR #### [facility] [address] [place] [address] Dr. Alfredo Lizama Basophils/100 WBC (Bld) 0.7 % Normal 0.2-2.0 [facility] Comment on above: Performed By: #### U MICRO, ERUR #### [facility] [address] [place] [address] Dr. Alfredo Lizama EO # 0.3 103/ul Normal 0.0-0.7 [facility] Comment on above: Performed By: #### U MICRO, ERUR #### [facility] [address] [place] [address] Dr. Alfredo Lizama Eosinophils/100 WBC (Bld) 3.2 % Normal 0.9-7.0 [facility] Comment on above: Performed By: #### U MICRO, ERUR #### [facility] [address] [place] [address] Dr. Alfredo Lizama Erythrocyte distribution width (RBC) [Ratio] 13.0 % Normal 11.0-15.0 [facility] Comment on above: Performed By: #### U MICRO, ERUR #### [facility] [address] [place] [address] Dr. Alfredo Lizama Hematocrit (Bld) [Volume fraction] 43.2 % Normal 36.0-48.0 [facility] Comment on above: Performed By: #### U MICRO, ERUR #### [facility] [address] [place] [address] Dr. Alfredo Lizama Hemoglobin (Bld) [Mass/Vol] 14.1 g/dL Normal 12.0-16.0 [facility] Comment on above: Performed By: #### U MICRO, ERUR #### [facility] [address] [place] [address] Dr. Alfredo Lizama IG # 0.02 10e3/ul Normal 0.00-0.03 [facility] Comment on above: Performed By: #### U MICRO, ERUR #### [facility] [address] [place] [address] Dr. Alfredo Lizama IG % 0.2 % Normal 0.0-0.5 [facility] Comment on above: Performed By: #### U MICRO, ERUR #### [facility] [address] [address] [address] Alfredo Lizama LYMPH # 3.0 103/ul Normal 1.2-3.8 [facility] Comment on above: Performed By: #### U MICRO, ERUR #### [facility] [address] [place] [address] Dr. Alfredo Lizama Lymphocytes/100 WBC (Bld) 35.6 % Normal 20.5-60.0 [facility] Comment on above: Performed By: #### U MICRO, ERUR #### [facility] [address] [place] [address] Dr. Alfredo Lizama MANUAL DIFF REQ NO Normal [facility] Comment on above: Performed By: #### U MICRO, ERUR #### [facility] [address] [place] [address] Dr. Alfredo Lizama MCH (RBC) [Entitic mass] 29.4 pg Normal 26.7-34.0 [facility] Comment on above: Performed By: #### U MICRO, ERUR #### [facility] [address] [place] [address] Dr. Alfredo Lizama MCHC (RBC) [Mass/Vol] 32.6 g/dL Normal 29.9-35.2 [facility] Comment on above: Performed By: #### U MICRO, ERUR #### [facility] [address] [place] [address] Dr. Alfredo Lizama MCV (RBC) [Entitic vol] 90.0 fL Normal 81.0-99.0 [facility] Comment on above: Performed By: #### U MICRO, ERUR #### [facility] [address] [place] [address] Dr. Alfredo Lizama MONO # 0.4 103/ul Normal 0.3-0.8 [facility] Comment on above: Performed By: #### U MICRO, ERUR #### [facility] [address] [place] [address] Dr. Alfredo Lizama Monocytes/100 WBC (Bld) 4.8 % Normal 1.7-12.0 [facility] Comment on above: Performed By: #### U MICRO, ERUR #### [facility] [address] [address] [address] Alfredo Lizama NEUT # 4.7 103/ul Normal 1.4-6.5 [facility] Comment on above: Performed By: #### U MICRO, ERUR #### [facility] [address] [place] [address] Dr. Alfredo Lizama Neutrophils/100 WBC (Bld) 55.5 % Normal 43.0-75.0 [facility] Comment on above: Performed By: #### U MICRO, ERUR #### [facility] [address] [place] [address] Dr. Alfredo Lizama Platelet mean volume (Bld) [Entitic vol] 9.5 fL Normal 9.5-13.5 [facility] Comment on above: Performed By: #### U MICRO, ERUR #### [facility] [address] [place] [address] Dr. Alfredo Lizama PLT 267 103/ul Normal 150-450 [facility] Comment on above: Performed By: #### U MICRO, ERUR #### [facility] [address] [place] [address] Dr. Alfredo Lizama RBC 4.80 106/ul Normal 4.20-5.40 [facility] Comment on above: Performed By: #### U MICRO, ERUR #### [facility] [address] [place] [address] Dr. Alfredo Lizama WBC 8.5 103/ul Normal 4.0-11.0 [facility] Comment on above: Performed By: #### U MICRO, ERUR #### [facility] [address] [place] [address] Dr. Alfredo Lizama ER URINE PROFILEon 3 Bilirubin Ql (U) Negative Normal NEGATIVE [facility] Comment on above: Performed By: #### E CHINMAY ESTRADARO #### [facility] [address] [place] [address] Dr. Alfredo Lizama Clarity (U) CLOUDY Abnormal CLEAR [facility] Comment on above: Performed By: #### E RUR, UMICRO #### [facility] [address] [place] [address] Dr. Alfredo Lizama Color (U) YELLOW Normal YELLOW [facility] Comment on above: Performed By: #### Jacque ESTRADA UMICRO #### [facility] [address] [place] [address] Dr. Alfredo Lizama ERUAHD A micrscopic examina tion will be performed if indicated. Normal [facility] Comment on above: Performed By: #### Jacque ESTRADA UMICRO #### [facility] [address] [place] [address] Dr. Alfredo Lizama Glucose Ql (U) Negative Normal NEGATIVE [facility] Comment on above: Performed By: #### Jacque ESTRADA UMICRO #### [facility] [address] [place] [address] Dr. Alfredo Lizama Hemoglobin Ql (U) MODERATE Abnormal NEGATIVE [facility] Comment on above: Performed By: #### Jacque ESTRADA UMICRO #### [facility] [address] [place] [address] Dr. Alfredo Lizama Ketones Ql (U) TRACE Abnormal NEGATIVE [facility] Comment on above: Performed By: #### Jacque ESTRADA UMICRO #### [facility] [address] [place] [address] Dr. Alfredo Lizama LEUKOCYTES SMALL Abnormal NEGATIVE [facility] Comment on above: Performed By: #### Jacque ESTRADA UMICRO #### [facility] [address] [place] [address] Dr. Alfredo Lizama Nitrite Ql (U) Negative Normal NEGATIVE [facility] Comment on above: Performed By: #### Jacque ESTRADA UMICRO #### [facility] [address] [place] [address] Dr. Alfredo Lizama pH (U) 8.0 [pH] Normal 5-9 [facility] Comment on above: Performed By: #### Jacque ESTRADA UMICRO #### [facility] [address] [place] [address] Dr. Alfredo Lizama Protein (U) [Mass/Vol] 100 mg/dL Abnormal NEGAT MAGDA/ TRACE [facility] Comment on above: Performed By: #### LINDA CHAVES #### [facility] [address] [place] [address] Dr. Alfredo Lizama SPEC GRAVITY 1.015 Normal 1.005-<=1. 025 [facility] Comment on above: Performed By: #### FER CHAVESICRO #### [facility] [address] [place] [address] Dr. Alfredo Lizama UR MICRO IND INDICATED Normal [facility] Comment on above: Performed By: #### E FER ESTRADAICRO #### [facility] [address] [place] [address] Dr. Alfredo Lizama Urobilinogen Qn (U) 1.0 {Tesha'U}/dL Normal 0.2 - 1. 0 [facility] Comment on above: Performed By: #### CHINMAY CHAVESRO #### [facility] [address] [place] [address] Dr. Alfredo Lizama PROF CHEM 8 (BAS METB)on Anion gap [Moles/Vol] 8.4 mmol/L Normal [facility] Comment on above: Performed By: #### U MICRO, ERUR #### [facility] [address] [place] [address] Dr. Alfredo Lizama Calcium [Mass/Vol] 8.7 mg/dL Normal 8.5-10.1 [facility] Comment on above: Performed By: #### U MICRO, ERUR #### [facility] [address] [place] [address] Dr. Alfredo Lizama Chloride [Moles/Vol] 107 mmol/L Normal 98-107 [facility] Comment on above: Performed By: #### U MICRO, ERUR #### [facility] [address] [place] [address] Dr. Alfredo Lizama CO2 [Moles/Vol] 28.3 mmol/L Normal 21.0-32.0 [facility] Comment on above: Performed By: #### U MICRO, ERUR #### [facility] [address] [address] [address] Alfredo Lizama Creatinine [Mass/Vol] 0.70 mg/dL Normal 0.55-1.02 [facility] Comment on above: Performed By: #### U MICRO, ERUR #### [facility] [address] [address] [address] Alfredo Lizama EGFR-AF RUSSIAN >60 Normal >=60 [facility] Comment on above: Performed By: #### U MICRO, ERUR #### [facility] [address] [address] [address] Alfredo Lizama EGFR-NON AF RUSSIAN >60 Normal >=60 [facility] Comment on above: Performed By: #### U MICRO, ERUR #### [facility] [address] [address] [address] Alfredo Lizama Glucose [Mass/Vol] 97 mg/dL Normal 74-106 [facility] Comment on above: Performed By: #### U MICRO, ERUR #### [facility] [address] [address] [address] Alfredo Lizama Potassium [Moles/Vol] 3.7 mmol/L Normal 3.5-5.1 [facility] Comment on above: Performed By: #### U MICRO, ERUR #### [facility] [address] [address] [address] Alfredo Lizama Sodium [Moles/Vol] 140 mmol/L Normal 136-145 [facility] Comment on above: Performed By: #### U MICRO, ERUR #### [facility] [address] [address] [address] Alfredo Lizama Urea nitrogen [Mass/Vol] 7.0 mg/dL Normal 7.0-18.0 [facility] Comment on above: Performed By: #### U MICRO, ERUR #### [facility] [address] [address] [address] Alfredo Lizama Urea nitrogen/Creatinine [Mass ratio] 10.0 mg/mg Normal [facility] Comment on above: Performed By: #### U MICRO, ERUR #### [facility] [address] [place] [address] Dr. Alfredo Lizama URINE MICROSCOPIC ONLYon AMORPHOUS CRYSTALS FEW Normal [facility] Comment on above: Performed By: #### E LONAR UMICRO #### [facility] [address] [place] [address] Dr. Alfredo Lizama BACTERIA LARGE Abnormal NONE SEEN [facility] Comment on above: Performed By: #### E RUR UMICRO #### [facility] [address] [place] [address] Dr. Alfredo Lizama Bacteria identified Cx Nom (U) INDICATED Normal [facility] Comment on above: Performed By: #### E LONAR UMICRO #### [facility] [address] [place] [address] Dr. Alfredo Lizama CAST NONE SEEN Normal NONE SEEN [facility] Comment on above: Performed By: #### E RUR UMICRO #### [facility] [address] [place] [address] Dr. Alfredo Lizama Crystals LM Nom (Urine sed) SEEN Abnormal NONE SEEN [facility] Comment on above: Performed By: #### E RUPedro UMICRO #### [facility] [address] [place] [address] Dr. Alfredo Lizama Epithelial cells LM Ql (Urine sed) RARE Normal NONE SEEN /RARE [facility] Comment on above: Performed By: #### Jacque ESTRADA UMICRO #### [facility] [address] [place] [address] Dr. Alfredo Lizama MUCOUS NONE SEEN Normal NONE SEEN [facility] Comment on above: Performed By: #### E RUR, UMICRO #### [facility] [address] [place] [address] Dr. Alfredo Lizama RBC 2-5 Abnormal 0-2 [facility] Comment on above: Performed By: #### E RUR, UMICRO #### [facility] [address] [place] [address] Dr. Alfredo Lizama TRIPLE PHOS CRYSTALS FEW Normal [facility] Comment on above: Performed By: #### E RUR, UMICRO #### [facility] [address] [place] [address] Dr. Alfredo Lizama WBC 75-100 Abnormal NONE SEEN [facility] Comment on above: Performed By: #### LINDA CHAVES #### [facility] [address] [place] [address] Dr. Alfredo Lizama CULTURE URINEon 12-25-2022 CULTURE URINE Isolate 1 [...] F Trimethoprim/Sulfamethoxa zole <=20 S F Normal [facility] Comment on above: Performed By: #### U MICRO, ERUR #### [facility] [address] [place] [address] Dr. Alfredo Lizama AMYLASEon 11-09-2022 Amylase [Catalytic activity/Vol] 14 U/L Critically low 25-115 [facility] Comment on above: Performed By: #### U MICRO, ERUR #### [facility] [address] [place] [address] Dr. Alfredo Lizama CBC AUTO DIFFon 11-09-2022 BASO # 0.1 103/ul Normal 0.0-0.1 [facility] Comment on above: Performed By: #### U MICRO, ERUR #### [facility] [address] [place] [address] Dr. Alfredo Lizama Basophils/100 WBC (Bld) 0.8 % Normal 0.2-2.0 [facility] Comment on above: Performed By: #### U MICRO, ERUR #### [facility] [address] [place] [address] Dr. Alfredo Lizama EO # 0.2 103/ul Normal 0.0-0.7 [facility] Comment on above: Performed By: #### U MICRO, ERUR #### [facility] [address] [place] [address] Dr. Alfredo Lizama Eosinophils/100 WBC (Bld) 2.5 % Normal 0.9-7.0 [facility] Comment on above: Performed By: #### U MICRO, ERUR #### [facility] [address] [place] [address] Dr. Alfredo Lizama Erythrocyte distribution width (RBC) [Ratio] 12.7 % Normal 11.0-15.0 [facility] Comment on above: Performed By: #### U MICRO, ERUR #### [facility] [address] [place] [address] Dr. Alfredo Lizama Hematocrit (Bld) [Volume fraction] 46.3 % Normal 36.0-48.0 [facility] Comment on above: Performed By: #### U MICRO, ERUR #### [facility] [address] [place] [address] Dr. Alfredo Lizama Hemoglobin (Bld) [Mass/Vol] 15.9 g/dL Normal 12.0-16.0 [facility] Comment on above: Performed By: #### U MICRO, ERUR #### [facility] [address] [place] [address] Dr. Alfredo Lizama IG # 0.02 10e3/ul Normal 0.00-0.03 [facility] Comment on above: Performed By: #### U MICRO, ERUR #### [facility] [address] [place] [address] Dr. Alfredo Lizama IG % 0.2 % Normal 0.0-0.5 [facility] Comment on above: Performed By: #### U MICRO, ERUR #### [facility] [address] [place] [address] Dr. Alfredo Lizama LYMPH # 2.6 103/ul Normal 1.2-3.8 [facility] Comment on above: Performed By: #### U MICRO, ERUR #### [facility] [address] [place] [address] Dr. Alfredo Lizama Lymphocytes/100 WBC (Bld) 31.3 % Normal 20.5-60.0 [facility] Comment on above: Performed By: #### U MICRO, ERUR #### [facility] [address] [place] [address] Dr. Alfredo Lizama MANUAL DIFF REQ NO Normal [facility] Comment on above: Performed By: #### U MICRO, ERUR #### [facility] [address] [place] [address] Dr. Alfredo Lizama MCH (RBC) [Entitic mass] 29.3 pg Normal 26.7-34.0 [facility] Comment on above: Performed By: #### U MICRO, ERUR #### [facility] [address] [place] [address] Dr. Alfredo Lizama MCHC (RBC) [Mass/Vol] 34.3 g/dL Normal 29.9-35.2 [facility] Comment on above: Performed By: #### U MICRO, ERUR #### [facility] [address] [place] [address] Dr. Alfredo iLzama MCV (RBC) [Entitic vol] 85.4 fL Normal 81.0-99.0 [facility] Comment on above: Performed By: #### U MICRO, ERUR #### [facility] [address] [place] [address] Dr. Alfredo Lizama MONO # 0.6 103/ul Normal 0.3-0.8 [facility] Comment on above: Performed By: #### U MICRO, ERUR #### [facility] [address] [place] [address] Dr. Alfredo Lizama Monocytes/100 WBC (Bld) 6.6 % Normal 1.7-12.0 [facility] Comment on above: Performed By: #### U MICRO, ERUR #### [facility] [address] [place] [address] Dr. Alfredo Lizama NEUT # 4.9 103/ul Normal 1.4-6.5 [facility] Comment on above: Performed By: #### U MICRO, ERUR #### [facility] [address] [address] [address] Alfredo Lizama Neutrophils/100 WBC (Bld) 58.6 % Normal 43.0-75.0 [facility] Comment on above: Performed By: #### U MICRO, ERUR #### [facility] [address] [address] [address] Alfredo Lizama Platelet mean volume (Bld) [Entitic vol] 9.5 fL Normal 9.5-13.5 [facility] Comment on above: Performed By: #### U MICRO, ERUR #### [facility] [address] [address] [address] Alfredo Lizama PLT 273 103/ul Normal 150-450 [facility] Comment on above: Performed By: #### U MICRO, ERUR #### [facility] [address] [place] [address] Dr. Alfredo Lizama RBC 5.42 106/ul Critically high 4.20-5.40 [facility] Comment on above: Performed By: #### U MICRO, ERUR #### [facility] [address] [address] [address] Alfredo Lizama WBC 8.4 103/ul Normal 4.0-11.0 [facility] Comment on above: Performed By: #### U MICRO, ERUR #### [facility] [address] [address] [address] Alfredo Lizama CULTURE URINEon 11-09-2022 CULTURE URINE Culture Observations : MODERATE GROWTH OF MIXED GENITAL ROSANNA. NO POTENTIAL PATHOGENS SEEN. Normal [facility] Comment on above: Performed By: #### U MICRO, ERUR #### [facility] [address] [address] [address] Alfredo Lizama ER URINE PROFILEon 3 Bilirubin Ql (U) Negative Normal NEGATIVE [facility] Comment on above: Performed By: #### U MICRO, ERUR #### [facility] [address] [address] [address] Alfredo Lizama Clarity (U) CLEAR Normal CLEAR [facility] Comment on above: Performed By: #### U MICRO, ERUR #### [facility] [address] [address] [address] Alfredo Lizama Color (U) LT. YELLOW Normal YELLOW [facility] Comment on above: Performed By: #### U MICRO, ERUR #### [facility] [address] [address] [address] Alfredo Lizama ERUAHD A micrscopic examina tion will be performed if indicated. Normal [facility] Comment on above: Performed By: #### U MICRO, ERUR #### [facility] [address] [address] [address] Alfredo Lizama Glucose Ql (U) Negative Normal NEGATIVE [facility] Comment on above: Performed By: #### U MICRO, ERUR #### [facility] [address] [address] [address] Alfredo Lizama Hemoglobin Ql (U) MODERATE Abnormal NEGATIVE [facility] Comment on above: Performed By: #### U MICRO, ERUR #### [facility] [address] [address] [address] Alfredo Lizama Ketones Ql (U) Negative Normal NEGATIVE [facility] Comment on above: Performed By: #### U MICRO, ERUR #### [facility] [address] [address] [address] Alfredo Lizama LEUKOCYTES LARGE Abnormal NEGATIVE [facility] Comment on above: Performed By: #### U MICRO, ERUR #### [facility] [address] [address] [address] Alfredo Lizama Nitrite Ql (U) Negative Normal NEGATIVE [facility] Comment on above: Performed By: #### U MICRO, ERUR #### [facility] [address] [address] [address] Alfredo Lizama pH (U) 7.0 [pH] Normal 5-9 [facility] Comment on above: Performed By: #### U MICRO, ERUR #### [facility] [address] [place] [address] Dr. Alfredo Lizama SPEC GRAVITY 1.015 Normal 1.005-<=1. 025 [facility] Comment on above: Performed By: #### U MICRO, ERUR #### [facility] [address] [place] [address] Dr. Alfredo Lizama UA PROTEIN Negative Normal NEGATIVE/ TRACE [facility] Comment on above: Performed By: #### U MICRO, ERUR #### [facility] [address] [place] [address] Dr. Alfredo Lizama UR MICRO IND INDICATED Normal [facility] Comment on above: Performed By: #### U MICRO, ERUR #### [facility] [address] [place] [address] Dr. Alfredo Lizama Urobilinogen Qn (U) 0.2 {Tesha'U}/dL Normal 0.2 - 1. 0 [facility] Comment on above: Performed By: #### U MICRO, ERUR #### [facility] [address] [place] [address] Dr. Alfredo Lizama LIPASEon 11-09-2022 Lipase [Catalytic activity/Vol] 34.0 U/L Critically low 73.0-393.0 [facility] Comment on above: Performed By: #### U MICRO, ERUR #### [facility] [address] [place] [address] Dr. Alfredo Lizama PROF 14(COMP METB)on 023 Albumin [Mass/Vol] 4.0 g/dL Normal 3.4-5.0 [facility] Comment on above: Performed By: #### U MICRO, ERUR #### [facility] [address] [place] [address] Dr. Alfredo Lizama Albumin/Globulin [Mass ratio] 1.0 {ratio} Normal [facility] Comment on above: Performed By: #### U MICRO, ERUR #### [facility] [address] [place] [address] Dr. Alfredo Lizama ALP [Catalytic activity/Vol] 206 U/L Critically high 46-116 [facility] Comment on above: Performed By: #### U MICRO, ERUR #### [facility] [address] [place] [address] Dr. Alfredo Lizama ALT [Catalytic activity/Vol] 53 U/L Normal 14-59 [facility] Comment on above: Performed By: #### U MICRO, ERUR #### [facility] [address] [place] [address] Dr. Alfredo Lizama Anion gap [Moles/Vol] 14.5 mmol/L Normal [facility] Comment on above: Performed By: #### U MICRO, ERUR #### [facility] [address] [place] [address] Dr. Alfredo Lizama AST [Catalytic activity/Vol] 55 U/L Critically high 15-37 [facility] Comment on above: Performed By: #### U MICRO, ERUR #### [facility] [address] [place] [address] Dr. Alfredo Lizama Bilirubin [Mass/Vol] 0.7 mg/dL Normal 0.2-1.0 [facility] Comment on above: Performed By: #### U MICRO, ERUR #### [facility] [address] [place] [address] Dr. Alfredo Lizama Calcium [Mass/Vol] 9.0 mg/dL Normal 8.5-10.1 [facility] Comment on above: Performed By: #### U MICRO, ERUR #### [facility] [address] [place] [address] Dr. Alfredo Lizama Chloride [Moles/Vol] 100 mmol/L Normal 98-107 [facility] Comment on above: Performed By: #### U MICRO, ERUR #### [facility] [address] [place] [address] Dr. Alfredo Lizama CO2 [Moles/Vol] 28.3 mmol/L Normal 21.0-32.0 [facility] Comment on above: Performed By: #### U MICRO, ERUR #### [facility] [address] [place] [address] Dr. Alfredo Lizama Creatinine [Mass/Vol] 0.65 mg/dL Normal 0.55-1.02 [facility] Comment on above: Performed By: #### U MICRO, ERUR #### [facility] [address] [place] [address] Dr. Alfredo Lizama EGFR-AF RUSSIAN >60 Normal >=60 [facility] Comment on above: Performed By: #### U MICRO, ERUR #### [facility] [address] [address] [address] Alfredo Lizama EGFR-NON AF RUSSIAN >60 Normal >=60 [facility] Comment on above: Performed By: #### U MICRO, ERUR #### [facility] [address] [address] [address] Alfredo Lizama Globulin (S) [Mass/Vol] 3.9 g/dL Normal [facility] Comment on above: Performed By: #### U MICRO, ERUR #### [facility] [address] [address] [address] Alfredo Lizama Glucose [Mass/Vol] 134 mg/dL Critically high 74-106 [facility] Comment on above: Performed By: #### U MICRO, ERUR #### [facility] [address] [address] [address] Alfredo Lizama Potassium [Moles/Vol] 3.8 mmol/L Normal 3.5-5.1 [facility] Comment on above: Performed By: #### U MICRO, ERUR #### [facility] [address] [address] [address] Alfredo Lizama Protein [Mass/Vol] 7.9 g/dL Normal 6.4-8.2 [facility] Comment on above: Performed By: #### U MICRO, ERUR #### [facility] [address] [address] [address] Alfredo Lizaam Sodium [Moles/Vol] 139 mmol/L Normal 136-145 [facility] Comment on above: Performed By: #### U MICRO, ERUR #### [facility] [address] [address] [address] Alfredo Lizama Urea nitrogen [Mass/Vol] 7.0 mg/dL Normal 7.0-18.0 [facility] Comment on above: Performed By: #### U MICRO, ERUR #### [facility] [address] [place] [address] Dr. Alfredo Lizama Urea nitrogen/Creatinine [Mass ratio] 10.7 mg/mg Normal [facility] Comment on above: Performed By: #### U MICRO, ERUR #### [facility] [address] [place] [address] Dr. Alfredo Lizama URINE MICROSCOPIC ONLYon BACTERIA TRACE Abnormal NONE SEEN [facility] Comment on above: Performed By: #### U MICRO, ERUR #### [facility] [address] [address] [address] Alfredo Lizama Bacteria identified Cx Nom (U) INDICATED Normal [facility] Comment on above: Performed By: #### U MICRO, ERUR #### [facility] [address] [place] [address] Dr. Alfredo Lizama CAST NONE SEEN Normal NONE SEEN [facility] Comment on above: Performed By: #### U MICRO, ERUR #### [facility] [address] [place] [address] Dr. Alfredo Lizama Crystals LM Nom (Urine sed) NONE SEEN Normal NONE SEEN [facility] Comment on above: Performed By: #### U MICRO, ERUR #### [facility] [address] [place] [address] Dr. Alfredo Lizama Epithelial cells LM Ql (Urine sed) FEW Abnormal NONE SEEN /RARE [facility] Comment on above: Performed By: #### U MICRO, ERUR #### [facility] [address] [place] [address] Dr. Alfredo Lizama MUCOUS NONE SEEN Normal NONE SEEN [facility] Comment on above: Performed By: #### U MICRO, ERUR #### [facility] [address] [place] [address] Dr. Alfredo Lizama RBC 20-50 Abnormal 0-2 [facility] Comment on above: Performed By: #### U MICRO, ERUR #### [facility] [address] [place] [address] Dr. Alfredo Lizama WBC 20-50 Abnormal NONE SEEN [facility] Comment on above: Performed By: #### U MICRO, ERUR #### [facility] [address] [address] [address] Alfredo Lizama XR ABD FLAT_UPon 11-09-2022 [...] ENRIQUE LOWE Date: 2022-11-09 11:06 Normal [facility] CULTURE URINEon 10-18-2022 CULTURE URINE Isolate [...] Trimethoprim/Sulfamethoxa zole <=10 S F Normal [facility] Comment on above: Performed By: #### U MICRO, ERUR #### [facility] [address] [address] [address] Alfredo Lizama ER URINE PROFILEon 3 Bilirubin Ql (U) Negative Normal NEGATIVE [facility] Comment on above: Performed By: #### E LONAR, UMICRO #### [facility] [address] [place] [address] Dr. Alfredo Lizama Clarity (U) CLEAR Normal CLEAR [facility] Comment on above: Performed By: #### E LONAR, UMICRO #### [facility] [address] [place] [address] Dr. Alfredo Lizama Color (U) YELLOW Normal YELLOW [facility] Comment on above: Performed By: #### E SEAN, UMICRO #### [facility] [address] [place] [address] Dr. Alfredo Lizama ERUAHD A micrscopic examina tion will be performed if indicated. Normal [facility] Comment on above: Performed By: #### E SEAN UMICRO #### [facility] [address] [place] [address] Dr. Alfredo Lizama Glucose Ql (U) Negative Normal NEGATIVE [facility] Comment on above: Performed By: #### Jacque ESTRADA UMICRO #### [facility] [address] [place] [address] Dr. Alfredo Lizama Hemoglobin Ql (U) LARGE Abnormal NEGATIVE [facility] Comment on above: Performed By: #### Jacque ESTRADA UMICRO #### [facility] [address] [place] [address] Dr. Alfredo Lizama Ketones Ql (U) Negative Normal NEGATIVE [facility] Comment on above: Performed By: #### Jacque ESTRADA UMICRO #### [facility] [address] [place] [address] Dr. Alfredo Lizama LEUKOCYTES LARGE Abnormal NEGATIVE [facility] Comment on above: Performed By: #### Jacque ESTRADA UMICRO #### [facility] [address] [place] [address] Dr. Alfredo Lizama Nitrite Ql (U) Positive Abnormal NEGATIVE [facility] Comment on above: Performed By: #### Jacque ESTRADA UMICRO #### [facility] [address] [place] [address] Dr. Alfredo Lizama pH (U) 6.5 [pH] Normal 5-9 [facility] Comment on above: Performed By: #### LINDA CHAVES #### [facility] [address] [place] [address] Dr. Alfredo Lizama Protein (U) [Mass/Vol] 100 mg/dL Abnormal NEGAT MAGDA/ TRACE [facility] Comment on above: Performed By: #### LINDA CHAVES #### [facility] [address] [place] [address] Dr. Alfredo Lizama SPEC GRAVITY 1.010 Normal 1.005-<=1. 025 [facility] Comment on above: Performed By: #### LINDA CHAVES #### [facility] [address] [place] [address] Dr. Alfredo Lizama UR MICRO IND INDICATED Normal [facility] Comment on above: Performed By: #### LINDA CHAVES #### [facility] [address] [place] [address] Dr. Alfredo Lizama Urobilinogen Qn (U) 1.0 {Tesha'U}/dL Normal 0.2 - 1. 0 [facility] Comment on above: Performed By: #### LINDA CHAVES #### [facility] [address] [place] [address] Dr. Alfredo Lizama URINE MICROSCOPIC ONLYon BACTERIA MODERATE Abnormal NONE SEEN [facility] Comment on above: Performed By: #### U MICRO, ERUR #### [facility] [address] [place] [address] Dr. Alfredo Lizama Bacteria identified Cx Nom (U) INDICATED Normal [facility] Comment on above: Performed By: #### U MICRO, ERUR #### [facility] [address] [place] [address] Dr. Alfredo Lizama CA OX CRYSTALS RARE Normal [facility] Comment on above: Performed By: #### U MICRO, ERUR #### [facility] [address] [place] [address] Dr. Alfredo Lizama CAST NONE SEEN Normal NONE SEEN [facility] Comment on above: Performed By: #### U MICRO, ERUR #### [facility] [address] [address] [address] Alfredo Lizama Crystals LM Nom (Urine sed) SEEN Abnormal NONE SEEN [facility] Comment on above: Performed By: #### U MICRO, ERUR #### [facility] [address] [place] [address] Dr. Alfredo Lizama Epithelial cells LM Ql (Urine sed) MODERATE Abnormal NONE SEEN /RARE [facility] Comment on above: Performed By: #### U MICRO, ERUR #### [facility] [address] [place] [address] Dr. Alfredo Lizama MUCOUS TRACE Abnormal NONE SEEN [facility] Comment on above: Performed By: #### U MICRO, ERUR #### [facility] [address] [place] [address] Dr. Alfredo Lizama RBC 20-50 Abnormal 0-2 [facility] Comment on above: Performed By: #### U MICRO, ERUR #### [facility] [address] [place] [address] Dr. Alfredo Lizama WBC 50-75 Abnormal NONE SEEN [facility] Comment on above: Performed By: #### U MICRO, ERUR #### [facility] [address] [place] [address] Dr. Alfredo Lizama Covid-19 PCR ([facility])on 08-06 SARS-CoV-2 (COVID-19) RNA ADRIÁN+probe Ql (Unsp spec) Not detected Normal NOT DETECTED [facility] Comment on above: Result Comment: When [...] for this test is supported by the Safety Security Officer of Health and Human Service's declaration that [...] Performed By: #### U MICRO, ERUR #### [facility] [address] [place] [address] Dr. Alfredo Lizama CBC AUTO DIFFon 08-24-2022 BASO # 0.1 103/ul Normal 0.0-0.1 [facility] Comment on above: Performed By: #### C BC #### [facility] [address] [place] [address] Dr. Alfredo Lizama Basophils/100 WBC (Bld) 0.8 % Normal 0.2-2.0 [facility] Comment on above: Performed By: #### C BC #### [facility] [address] [place] [address] Dr. Alfredo Lizama EO # 0.3 103/ul Normal 0.0-0.7 [facility] Comment on above: Performed By: #### C BC #### [facility] [address] [place] [address] Dr. Alfredo Lizama Eosinophils/100 WBC (Bld) 3.1 % Normal 0.9-7.0 [facility] Comment on above: Performed By: #### C BC #### [facility] [address] [place] [address] Dr. Alfredo Lizama Erythrocyte distribution width (RBC) [Ratio] 13.4 % Normal 11.0-15.0 [facility] Comment on above: Performed By: #### C BC #### [facility] [address] [place] [address] Dr. Alfredo Lizama Hematocrit (Bld) [Volume fraction] 47.2 % Normal 36.0-48.0 [facility] Comment on above: Performed By: #### C BC #### [facility] [address] [place] [address] Dr. Alfredo Lizama Hemoglobin (Bld) [Mass/Vol] 15.6 g/dL Normal 12.0-16.0 [facility] Comment on above: Performed By: #### C BC #### [facility] [address] [place] [address] Dr. Alfredo Lizama IG # 0.02 10e3/ul Normal 0.00-0.03 [facility] Comment on above: Performed By: #### C BC #### [facility] [address] [place] [address] Dr. Alfredo Lizama IG % 0.2 % Normal 0.0-0.5 [facility] Comment on above: Performed By: #### C BC #### [facility] [address] [place] [address] Dr. Alfredo Lizama LYMPH # 4.4 103/ul Critically high 1.2-3.8 [facility] Comment on above: Performed By: #### C BC #### [facility] [address] [place] [address] Dr. Alfredo Lizama Lymphocytes/100 WBC (Bld) 42.3 % Normal 20.5-60.0 [facility] Comment on above: Performed By: #### C BC #### [facility] [address] [place] [address] Dr. Alfredo Lizama MANUAL DIFF REQ NO Normal [facility] Comment on above: Performed By: #### C BC #### [facility] [address] [place] [address] Dr. Alfredo Lizama MCH (RBC) [Entitic mass] 28.8 pg Normal 26.7-34.0 [facility] Comment on above: Performed By: #### C BC #### [facility] [address] [place] [address] Dr. Alfredo Lizama MCHC (RBC) [Mass/Vol] 33.1 g/dL Normal 29.9-35.2 [facility] Comment on above: Performed By: #### C BC #### [facility] [address] [place] [address] Dr. Alfredo Lizama MCV (RBC) [Entitic vol] 87.2 fL Normal 81.0-99.0 [facility] Comment on above: Performed By: #### C BC #### [facility] [address] [address] [address] Alfredo Lizama MONO # 0.6 103/ul Normal 0.3-0.8 [facility] Comment on above: Performed By: #### C BC #### [facility] [address] [address] [address] Alfredo Lizama Monocytes/100 WBC (Bld) 5.3 % Normal 1.7-12.0 [facility] Comment on above: Performed By: #### C BC #### [facility] [address] [place] [address] Dr. Alfredo Lizama NEUT # 5.0 103/ul Normal 1.4-6.5 [facility] Comment on above: Performed By: #### C BC #### [facility] [address] [place] [address] Dr. Alfredo Lizama Neutrophils/100 WBC (Bld) 48.3 % Normal 43.0-75.0 [facility] Comment on above: Performed By: #### C BC #### [facility] [address] [place] [address] Dr. Alfredo Lizama Platelet mean volume (Bld) [Entitic vol] 9.9 fL Normal 9.5-13.5 [facility] Comment on above: Performed By: #### C BC #### [facility] [address] [place] [address] Dr. Alfredo Lizama PLT 298 103/ul Normal 150-450 [facility] Comment on above: Performed By: #### C BC #### [facility] [address] [place] [address] Dr. Alfredo Lizama RBC 5.41 106/ul Critically high 4.20-5.40 [facility] Comment on above: Performed By: #### C BC #### [facility] [address] [place] [address] Dr. Alfredo Lizama WBC 10.3 103/ul Normal 4.0-11.0 [facility] Comment on above: Performed By: #### C BC #### [facility] [address] [address] [address] Alfredo Lizama PROF CHEM 8 (BAS METB)on Anion gap [Moles/Vol] 14.3 mmol/L Normal Th [facility] Comment on above: Performed By: #### U MICRO, ERUR #### [facility] [address] [place] [address] Dr. Alfredo Lizama Calcium [Mass/Vol] 9.1 mg/dL Normal 8.5-10.1 [facility] Comment on above: Performed By: #### U MICRO, ERUR #### [facility] [address] [place] [address] Dr. Alfredo Lizama Chloride [Moles/Vol] 99 mmol/L Normal 98-107 [facility] Comment on above: Performed By: #### U MICRO, ERUR #### [facility] [address] [place] [address] Dr. Alfredo Lizama CO2 [Moles/Vol] 29.0 mmol/L Normal 21.0-32.0 [facility] Comment on above: Performed By: #### U MICRO, ERUR #### [facility] [address] [place] [address] Dr. Alfredo Lizama Creatinine [Mass/Vol] 0.70 mg/dL Normal 0.55-1.02 [facility] Comment on above: Performed By: #### U MICRO, ERUR #### [facility] [address] [place] [address] Dr. Alfredo Lizama EGFR-AF RUSSIAN >60 Normal >=60 [facility] Comment on above: Performed By: #### U MICRO, ERUR #### [facility] [address] [place] [address] Dr. Alfredo Lizama EGFR-NON AF RUSSIAN >60 Normal >=60 [facility] Comment on above: Performed By: #### U MICRO, ERUR #### [facility] [address] [place] [address] Dr. Alfredo Lizama Glucose [Mass/Vol] 121 mg/dL Critically high 74-106 [facility] Comment on above: Performed By: #### U MICRO, ERUR #### [facility] [address] [address] [address] Alfredo Lizama Potassium [Moles/Vol] 3.3 mmol/L Critically low 3.5-5.1 [facility] Comment on above: Performed By: #### U MICRO, ERUR #### [facility] [address] [place] [address] Dr. Alfredo Lizama Sodium [Moles/Vol] 139 mmol/L Normal 136-145 [facility] Comment on above: Performed By: #### U MICRO, ERUR #### [facility] [address] [place] [address] Dr. Alfredo Lizama Urea nitrogen [Mass/Vol] 5.0 mg/dL Critically low 7.0-18. 0 [facility] Comment on above: Performed By: #### U MICRO, ERUR #### [facility] [address] [place] [address] Dr. Alfredo Lizama Urea nitrogen/Creatinine [Mass ratio] 7.1 mg/mg Normal [facility] Comment on above: Performed By: #### U MICRO, ERUR #### [facility] [address] [place] [address] Dr. Alfredo Lizama PROTIMEon 08-24-2022 INR Coag (PPP) [Relative time] 0.99 {INR} Normal [facility] Comment on above: Performed By: #### P T, PTT #### [facility] [address] [place] [address] Dr. Alfredo Lizama INR GUIDELINES SEE BELOW Normal [facility] Comment on above: Result Comment: MARY JO RED INR: 2.0 - 3.0 CONDITIONS NOT LISTED BELOW 2.5 - 3.5 FOR PROSTHETIC HEART VALVE REPLACEMENT 2.5 - 3.5 RECURRENT THROMBOSIS Performed By: #### P T, PTT #### [facility] [address] [place] [address] Dr. Alfredo Lizama PT Coag (PPP) [Time] 10.7 s Normal 9.0-11.6 [facility] Comment on above: Performed By: #### P T, PTT #### [facility] [address] [place], [place] [address] Dr. Alfredo Lizama PTTon 08-24-2022 aPTT Coag (Bld) [Time] 31.7 s Normal 22.3-36.2 [facility] Comment on above: Performed By: #### P T, PTT #### [facility] [address] [address] [address] Alfredo Lizama BN SACRUM/COCCYX, MIN 2 [...] 09/20/2019. Thoracolumbar spine radiographs 09/08/2021. ACCESSION NUMBER(S): [id number]; [id number]; [id number] ORDERING CLINICIAN: CANDICE PEREZ FINDINGS: Three views [...] Electronically signed by: GOMEZ JAMA MD Normal [facility] BN SPINE, LUMBOSACRAL; 2 OR [...] 09/20/2019. Thoracolumbar spine radiographs 09/08/2021. ACCESSION NUMBER(S): [id number]; [id number]; [id number] ORDERING CLINICIAN: CANDICE PEREZ FINDINGS: Three views [...] Electronically signed by: GOMEZ JAMA MD Normal [facility] BN SPINE, THORACIC, 3 VIEWSo [...] 09/20/2019. Thoracolumbar spine radiographs 09/08/2021. ACCESSION NUMBER(S): [id number]; [id number]; [id number] ORDERING CLINICIAN: CANDICE PEREZ FINDINGS: Three views [...] Electronically signed by: GOMEZ JAMA MD Normal [facility] CBC AND DIFFERENTIALon 06-07 % AUTOMATED IMMATURE GRAN 0.2 % Normal 0.0 - 0.9 [facility] Comment on above: Result Comment: Jaleesa ture Granulocyte Count (IG) includes promyelocytes, myelocytes and metamyelocytes but does not include bands. Percent differential counts (%) should be interpreted in the context of the absolute cell counts (cells/L). Performed By: #### R ENAL #### [facility] [address] [place] [address] Basophils (Bld) [#/Vol] 0.09 10*3/uL Normal 0.00 - 0.10 [facility] Comment on above: Performed By: #### R ENAL #### [facility] [address] [place] [address] Basophils/100 WBC (Bld) 1.0 % Normal 0.0 - 2.0 [facility] Comment on above: Performed By: #### R ENAL #### [facility] [address] [place] [address] Eosinophils (Bld) [#/Vol] 0.24 10*3/uL Normal 0.00 - 0.70 [facility] Comment on above: Performed By: #### R ENAL #### [facility] [address] [place] [address] Eosinophils/100 WBC (Bld) 2.6 % Normal 0.0 - 6.0 [facility] Comment on above: Performed By: #### R ENAL #### [facility] [address] [place] [address] Erythrocyte distribution width (RBC) [Ratio] 12.9 % Normal 11.5 - 14.5 [facility] Comment on above: Performed By: #### R ENAL #### [facility] [address] [place] [address] Hematocrit (Bld) [Volume fraction] 48.4 % High 36.0 - 46.0 [facility] Comment on above: Performed By: #### R ENAL #### [facility] [address] [place] [address] Hemoglobin (Bld) [Mass/Vol] 17.1 g/dL High 12.0 - 16.0 [facility] Comment on above: Performed By: #### R ENAL #### [facility] [address] [place] [address] Lymphocytes (Bld) [#/Vol] 2.93 10*3/uL Normal 1.20 - 4.80 [facility] Comment on above: Performed By: #### R ENAL #### [facility] [address] [place] [address] Lymphocytes/100 WBC (Bld) 31.9 % Normal 13.0 - 44.0 [facility] Comment on above: Performed By: #### R ENAL #### [facility] [address] [place] [address] MCHC (RBC) [Mass/Vol] 35.3 g/dL Normal 32.0 - 36.0 [facility] Comment on above: Performed By: #### R ENAL #### [facility] [address] [place] [address] MCV (RBC) [Entitic vol] 85 fL Normal 80 - 100 [facility] Comment on above: Performed By: #### R ENAL #### [facility] [address] [place] [address] Monocytes (Bld) [#/Vol] 0.36 10*3/uL Normal 0.10 - 1.00 [facility] Comment on above: Performed By: #### R ENAL #### [facility] [address] [place] [address] Monocytes/100 WBC (Bld) 3.9 % Normal 2.0 - 10.0 [facility] Comment on above: Performed By: #### R ENAL #### [facility] [address] [place] [address] Neutrophils (Bld) [#/Vol] 5.54 10*3/uL Normal 1.20 - 7.70 [facility] Comment on above: Performed By: #### R ENAL #### [facility] [address] [place] [address] Neutrophils/100 WBC (Bld) 60.4 % Normal 40.0 - 80.0 [facility] Comment on above: Performed By: #### R ENAL #### [facility] [address] [place] [address] NUCLEATED RBC 0.0 /100 WBC Normal 0.0-0.0 [facility] Comment on above: Performed By: #### R ENAL #### [facility] [address] [place] [address] Platelets (Bld) [#/Vol] 365 10*3/uL Normal 150 - 450 [facility] Comment on above: Performed By: #### R ENAL #### [facility] [address] [place] [address] RBC 5.69 x10E12/L High 4.00 - 5.20 [facility] Comment on above: Performed By: #### R ENAL #### [place] [id number] [place] [address] WBC (Bld) [#/Vol] 9.2 10*3/uL Normal 4.4 - 11.3 [facility] Comment on above: Performed By: #### R ENAL #### [facility] [address] [place] [address] COMPREHENSIVE PANELon 2021 Albumin [Mass/Vol] 4.6 g/dL Normal 3.4 - 5.0 [facility] Comment on above: Performed By: #### R ENAL #### [facility] [address] [place] [address] ALP [Catalytic activity/Vol] 192 U/L High 33 - 110 [facility] Comment on above: Performed By: #### R ENAL #### [facility] [address] [place] [address] ALT [Catalytic activity/Vol] 33 U/L Normal 7 - 45 [facility] Comment on above: Result Comment: Melly ents treated with Sulfasalazine may generate falsely decreased results for ALT. Performed By: #### R ENAL #### [facility] [address] [place] [address] Anion gap [Moles/Vol] 16 mmol/L Normal 10 - 20 [facility] Comment on above: Performed By: #### R ENAL #### [facility] [address] [place] [address] AST [Catalytic activity/Vol] 51 U/L High 9 - 39 [facility] Comment on above: Performed By: #### R ENAL #### [facility] [address] [place] [address] Bilirubin [Mass/Vol] 0.5 mg/dL Normal 0.0 - 1.2 [facility] Comment on above: Performed By: #### R ENAL #### [facility] [address] [place] [address] Calcium [Mass/Vol] 10.3 mg/dL Normal 8.6 - 10.6 [facility] Comment on above: Performed By: #### R ENAL #### [facility] [address] [place] [address] Chloride [Moles/Vol] 101 mmol/L Normal 98 - 107 [facility] Comment on above: Performed By: #### R ENAL #### [facility] [address] [place] [address] Creatinine [Mass/Vol] 0.61 mg/dL Normal 0.50 - 1.05 [facility] Comment on above: Performed By: #### R ENAL #### [facility] [address] [place] [address] eGFR FEMALE >90 Normal >90 [facility] Comment on above: Result Comment: CALC ULATIONS OF ESTIMATED GFR ARE PERFORMED USING THE 2020 CKD-EPI STUDY REFIT EQUATION WITHOUT THE RACE VARIABLE FOR THE IDMS-TRACEABLE CREATININE METHODS. https://jasn.asnjournals.org/content//ASN.889 1485781 Performed By: #### R ENAL #### [facility] [address] [place] [address] Glucose [Mass/Vol] 100 mg/dL High 74 - 99 [facility] Comment on above: Performed By: #### R ENAL #### [facility] [address] [place] [address] HCO3 (Bld) [Moles/Vol] 27 mmol/L Normal 21 - 32 [facility] Comment on above: Performed By: #### R ENAL #### [facility] [address] [place] [address] Potassium [Moles/Vol] 3.8 mmol/L Normal 3.5 - 5.3 [facility] Comment on above: Performed By: #### R ENAL #### [facility] [address] [place] [address] Protein [Mass/Vol] 8.2 g/dL Normal 6.4 - 8.2 [facility] Comment on above: Performed By: #### R ENAL #### [facility] [address] [place] [address] Sodium [Moles/Vol] 140 mmol/L Normal 136 - 145 [facility] Comment on above: Performed By: #### R ENAL #### [facility] [address] [place] [address] Urea nitrogen [Mass/Vol] 5 mg/dL Low 6 - 23 [facility] Comment on above: Performed By: #### R ENAL #### [facility] [address] 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 s/p L4/5 lami, accessory bobby placement, 06/07 p/w 2mo radicular leg pain [...] L4 stenosis, 09/21 s/p L4/5 lami, accessory bobby placement, 06/07 p/w 2mo radicular leg pain [...] Updated: 07-Jun-2022 11:22 by Perez Carlisle) Normal [facility] NR CT L-SPINE WO CONTRASTon 06-07-[address] L-SPINE WO CONTRAST Patient Name: MORALES LEE STUDY: CT T-SPINE WO CONTRAST; CT L-SPINE WO CONTRAST 06/06/2022 11:03 pm INDICATION: ok, Lie Flat: Yes COMPARISON: 09/20/2021 MRI and 09/18/2021 CT ACCESSION NUMBER(S): [id number]; [id number] ORDERING CLINICIAN: CANDICE PEREZ TECHNIQUE: Axial CT [...] osseous spinal canal or neural foraminal stenosis. Ekkn-mz-[id number] spinal canal and neural foraminal narrowing described [...] Electronically signed by: CELI MCNEIL, DO Normal [facility] NR CT T-SPINE WO CONTRASTon 06-07-[address] T-SPINE WO CONTRAST Patient Name: MORALES LEE STUDY: CT T-SPINE WO CONTRAST; CT L-SPINE WO CONTRAST 06/06/2022 11:03 pm INDICATION: ok, Lie Flat: Yes COMPARISON: 09/20/2021 MRI and 09/18/2021 CT ACCESSION NUMBER(S): [id number]; [id number] ORDERING CLINICIAN: CANDICE PEREZ TECHNIQUE: Axial CT [...] osseous spinal canal or neural foraminal stenosis. Ospp-dx-[id number] spinal canal and neural foraminal narrowing described [...] view. Electronically signed by: DO Andrei TOURE [facility] Provider Note - ED Care Diaz nabila [...] Updated: 21-Jun-2022 06:18 by Yony Aguirre () Andrei [facility] Provider Note - ED v3on [...] - M21.37 (more content not included)... Normal [facility] Triage - EDon 06-06-2022 Triage [...] obeys commands Best Verbal Response: (V5) oriented Angel [place] Score: 15 Mask applied: yes Patient has [...] 06-Jun-2022 19:07 by Meghan Chavez (MERA) Normal [facility] CULTURE URINEon 05-10-2022 CULTURE URINE [...] F Trimethoprim/Sulfamethoxa zole <=20 S F Normal [facility] Comment on above: Performed By: #### U MICRO, ERUR #### [facility] [address] [place] [address] Dr. Alfredo Lizama CBC AUTO DIFFon 05-07-2022 BASO # 0.1 103/ul Normal 0.0-0.1 [facility] Comment on above: Performed By: #### U MICRO, ERUR #### [facility] [address] [address] [address] Alfredo Lizama Basophils/100 WBC (Bld) 0.5 % Normal 0.2-2.0 [facility] Comment on above: Performed By: #### U MICRO, ERUR #### [facility] [address] [place] [address] Dr. Alfredo Lizama EO # 0.4 103/ul Normal 0.0-0.7 [facility] Comment on above: Performed By: #### U MICRO, ERUR #### [facility] [address] [place] [address] Dr. Alfredo Lizama Eosinophils/100 WBC (Bld) 3.5 % Normal 0.9-7.0 [facility] Comment on above: Performed By: #### U MICRO, ERUR #### [facility] [address] [place] [address] Dr. Alfredo Lizama Erythrocyte distribution width (RBC) [Ratio] 13.2 % Normal 11.0-15.0 [facility] Comment on above: Performed By: #### U MICRO, ERUR #### [facility] [address] [place] [address] Dr. Alfredo Lizama Hematocrit (Bld) [Volume fraction] 44.0 % Normal 36.0-48.0 [facility] Comment on above: Performed By: #### U MICRO, ERUR #### [facility] [address] [place] [address] Dr. Alfredo Lizama Hemoglobin (Bld) [Mass/Vol] 14.8 g/dL Normal 12.0-16.0 [facility] Comment on above: Performed By: #### U MICRO, ERUR #### [facility] [address] [place] [address] Dr. Alfredo Lizama IG # 0.03 10e3/ul Normal 0.00-0.03 [facility] Comment on above: Performed By: #### U MICRO, ERUR #### [facility] [address] [place] [address] Dr. Alfredo Lizama IG % 0.2 % Normal 0.0-0.5 [facility] Comment on above: Performed By: #### U MICRO, ERUR #### [facility] [address] [place] [address] Dr. Alfredo Lizama LYMPH # 3.8 103/ul Normal 1.2-3.8 [facility] Comment on above: Performed By: #### U MICRO, ERUR #### [facility] [address] [place] [address] Dr. Alfredo Lizama Lymphocytes/100 WBC (Bld) 31.3 % Normal 20.5-60.0 [facility] Comment on above: Performed By: #### U MICRO, ERUR #### [facility] [address] [place] [address] Dr. Alfredo Lizama MANUAL DIFF REQ NO Normal [facility] Comment on above: Performed By: #### U MICRO, ERUR #### [facility] [address] [place] [address] Dr. Alfredo Lizama MCH (RBC) [Entitic mass] 28.8 pg Normal 26.7-34.0 [facility] Comment on above: Performed By: #### U MICRO, ERUR #### [facility] [address] [place] [address] Dr. Alfredo Lizama MCHC (RBC) [Mass/Vol] 33.6 g/dL Normal 29.9-35.2 [facility] Comment on above: Performed By: #### U MICRO, ERUR #### [facility] [address] [place] [address] Dr. Alfredo Lizama MCV (RBC) [Entitic vol] 85.8 fL Normal 81.0-99.0 [facility] Comment on above: Performed By: #### U MICRO, ERUR #### [facility] [address] [place] [address] Dr. Alfredo Lizama MONO # 0.7 103/ul Normal 0.3-0.8 [facility] Comment on above: Performed By: #### U MICRO, ERUR #### [facility] [address] [place] [address] Dr. Alfredo Lizama Monocytes/100 WBC (Bld) 5.8 % Normal 1.7-12.0 [facility] Comment on above: Performed By: #### U MICRO, ERUR #### [facility] [address] [place] [address] Dr. Alfredo Lizama NEUT # 7.1 103/ul Critically high 1.4-6.5 [facility] Comment on above: Performed By: #### U MICRO, ERUR #### [facility] [address] [address] [address] Alfredo Lizama Neutrophils/100 WBC (Bld) 58.7 % Normal 43.0-75.0 [facility] Comment on above: Performed By: #### U MICRO, ERUR #### [facility] [address] [address] [address] Alfredo Lizama Platelet mean volume (Bld) [Entitic vol] 9.6 fL Normal 9.5-13.5 [facility] Comment on above: Performed By: #### U MICRO, ERUR #### [facility] [address] [address] [address] Alfredo Lizama PLT 269 103/ul Normal 150-450 [facility] Comment on above: Performed By: #### U MICRO, ERUR #### [facility] [address] [address] [address] Alfredo Lizama RBC 5.13 106/ul Normal 4.20-5.40 [facility] Comment on above: Performed By: #### U MICRO, ERUR #### [facility] [address] [address] [address] Alfredo Lizama WBC 12.2 103/ul Critically high 4.0-11.0 [facility] Comment on above: Performed By: #### U MICRO, ERUR #### [facility] [address] [address] ABD/PELV W CONon 05-07-[address] ABD/PELV W CON EXAMINATION: CT [...] KORIN STANLEY Date: 2022-05-07 14:00 Normal [facility] ER URINE PROFILEon 2 Bilirubin Ql (U) Negative Normal NEGATIVE [facility] Comment on above: Performed By: #### U MICRO, ERUR #### [facility] [address] [address] [address] Alfredo Lizama Clarity (U) CLOUDY Abnormal CLEAR [facility] Comment on above: Performed By: #### U MICRO, ERUR #### [facility] [address] [address] [address] Alfredo Lizama Color (U) LT. YELLOW Normal YELLOW [facility] Comment on above: Performed By: #### U MICRO, ERUR #### [facility] [address] [place] [address] Dr. Alfredo RAYMUNDO A micrscopic examina tion will be performed if indicated. Normal [facility] Comment on above: Performed By: #### U MICRO, ERUR #### [facility] [address] [address] [address] Alfrdeo Lizama Glucose Ql (U) Negative Normal NEGATIVE [facility] Comment on above: Performed By: #### U MICRO, ERUR #### [facility] [address] [place] [address] Dr. Alfredo Lizama Hemoglobin Ql (U) LARGE Abnormal NEGATIVE [facility] Comment on above: Performed By: #### U MICRO, ERUR #### [facility] [address] [place] [address] Dr. Alfredo Lizama Ketones Ql (U) Negative Normal NEGATIVE [facility] Comment on above: Performed By: #### U MICRO, ERUR #### [facility] [address] [address] [address] Alfredo Lizama LEUKOCYTES MODERATE Abnormal NEGATIVE [facility] Comment on above: Performed By: #### U MICRO, ERUR #### [facility] [address] [place] [address] Dr. Alfredo Lizama Nitrite Ql (U) Positive Abnormal NEGATIVE [facility] Comment on above: Performed By: #### U MICRO, ERUR #### [facility] [address] [place] [address] Dr. Alfredo Lizama pH (U) 8.5 [pH] Normal 5-9 [facility] Comment on above: Performed By: #### U MICRO, ERUR #### [facility] [address] [address] [address] Alfredo Lizama Protein (U) [Mass/Vol] 100 mg/dL Abnormal NEGAT MAGDA/ TRACE [facility] Comment on above: Performed By: #### U MICRO, ERUR #### [facility] [address] [place] [address] Dr. Alfredo Lizama SPEC GRAVITY 1.015 Normal 1.005-<=1. 025 [facility] Comment on above: Performed By: #### U MICRO, ERUR #### [facility] [address] [place] [address] Dr. Alfredo Lizama UR MICRO IND INDICATED Normal [facility] Comment on above: Performed By: #### U MICRO, ERUR #### [facility] [address] [place] [address] Dr. Alfredo Lizama Urobilinogen Qn (U) 1.0 {Tesha'U}/dL Normal 0.2 - 1. 0 [facility] Comment on above: Performed By: #### U MICRO, ERUR #### [facility] [address] [place] [address] Dr. Alfredo Lizama PROF CHEM 8 (BAS METB)on Anion gap [Moles/Vol] 12.0 mmol/L Normal [facility] Comment on above: Performed By: #### U MICRO, ERUR #### [facility] [address] [place] [address] Dr. Alfredo Lizama Calcium [Mass/Vol] 8.6 mg/dL Normal 8.5-10.1 [facility] Comment on above: Performed By: #### U MICRO, ERUR #### [facility] [address] [place] [address] Dr. Alfredo Lizama Chloride [Moles/Vol] 101 mmol/L Normal 98-107 [facility] Comment on above: Performed By: #### U MICRO, ERUR #### [facility] [address] [place] [address] Dr. Alfredo Lizama CO2 [Moles/Vol] 28.0 mmol/L Normal 21.0-32.0 [facility] Comment on above: Performed By: #### U MICRO, ERUR #### [facility] [address] [place] [address] Dr. Alfredo Lizama Creatinine [Mass/Vol] 0.77 mg/dL Normal 0.55-1.02 [facility] Comment on above: Performed By: #### U MICRO, ERUR #### [facility] [address] [address] [address] Alfredo Lizama EGFR-AF RUSSIAN >60 Normal >=60 [facility] Comment on above: Performed By: #### U MICRO, ERUR #### [facility] [address] [address] [address] Alfredo Lizama EGFR-NON AF RUSSIAN >60 Normal >=60 [facility] Comment on above: Performed By: #### U MICRO, ERUR #### [facility] [address] [address] [address] Alfredo Lizama Glucose [Mass/Vol] 96 mg/dL Normal 74-106 [facility] Comment on above: Performed By: #### U MICRO, ERUR #### [facility] [address] [place] [address] Dr. Alfredo Lizama Potassium [Moles/Vol] 4.0 mmol/L Normal 3.5-5.1 [facility] Comment on above: Performed By: #### U MICRO, ERUR #### [facility] [address] [place] [address] Dr. Alfredo Lizama Sodium [Moles/Vol] 137 mmol/L Normal 136-145 [facility] Comment on above: Performed By: #### U MICRO, ERUR #### [facility] [address] [place] [address] Dr. Alfredo Lizama Urea nitrogen [Mass/Vol] 7.0 mg/dL Normal 7.0-18.0 [facility] Comment on above: Performed By: #### U MICRO, ERUR #### [facility] [address] [place] [address] Dr. Alfredo Lizama Urea nitrogen/Creatinine [Mass ratio] 9.1 mg/mg Normal [facility] Comment on above: Performed By: #### U MICRO, ERUR #### [facility] [address] [place] [address] Dr. Alfredo Lizama URINE MICROSCOPIC ONLYon BACTERIA MODERATE Abnormal NONE SEEN [facility] Comment on above: Performed By: #### U MICRO, ERUR #### [facility] [address] [place] [address] Dr. Alfredo Lizama Bacteria identified Cx Nom (U) INDICATED Normal [facility] Comment on above: Performed By: #### U MICRO, ERUR #### [facility] [address] [place] [address] Dr. Alfredo Lizama CAST NONE SEEN Normal NONE SEEN [facility] Comment on above: Performed By: #### U MICRO, ERUR #### [facility] [address] [place] [address] Dr. Alfredo Lizama Crystals LM Nom (Urine sed) NONE SEEN Normal NONE SEEN [facility] Comment on above: Performed By: #### U MICRO, ERUR #### [facility] [address] [place] [address] Dr. Alfredo Lizama Epithelial cells LM Ql (Urine sed) FEW Abnormal NONE SEEN /RARE [facility] Comment on above: Performed By: #### U MICRO, ERUR #### [facility] [address] [place] [address] Dr. Alfredo Lizama MUCOUS NONE SEEN Normal NONE SEEN [facility] Comment on above: Performed By: #### U MICRO, ERUR #### [facility] [address] [place] [address] Dr. Alfredo Lizama RBC 2-5 Abnormal 0-2 [facility] Comment on above: Performed By: #### U MICRO, ERUR #### [facility] [address] [place] [address] Dr. Alfredo Lizama WBC 10-20 Abnormal NONE SEEN [facility] Comment on above: Performed By: #### U MICRO, ERUR #### [facility] [address] [place] [address] Dr. Alfredo Lizama CULTURE URINEon 04-10-2022 CULTURE [...] Trimethoprim/Sulfamethoxa zole <=20 S F Normal [facility] Comment on above: Performed By: #### U MICRO, ERUR #### [facility] [address] [place] [address] Dr. Alfredo Lizama ER URINE PROFILEon 2 Bilirubin Ql (U) Negative Normal NEGATIVE [facility] Comment on above: Performed By: #### U MICRO, ERUR #### [facility] [address] [place] [address] Dr. Alfredo Lizama Clarity (U) CLOUDY Abnormal CLEAR [facility] Comment on above: Performed By: #### U MICRO, ERUR #### [facility] [address] [address] [address] Alfredo Lizama Color (U) YELLOW Normal YELLOW [facility] Comment on above: Performed By: #### U MICRO, ERUR #### [facility] [address] [place] [address] Dr. Alfredo Lizama ERUAHD A micrscopic examina tion will be performed if indicated. Normal [facility] Comment on above: Performed By: #### U MICRO, ERUR #### [facility] [address] [address] [address] Alfredo Lizama Glucose Ql (U) Negative Normal NEGATIVE [facility] Comment on above: Performed By: #### U MICRO, ERUR #### [facility] [address] [address] [address] Alfredo Lizama Hemoglobin Ql (U) SMALL Abnormal NEGATIVE [facility] Comment on above: Performed By: #### U MICRO, ERUR #### [facility] [address] [address] [address] Alfredo Lizama Ketones Ql (U) Negative Normal NEGATIVE [facility] Comment on above: Performed By: #### U MICRO, ERUR #### [facility] [address] [place] [address] Dr. Alfredo Lizama LEUKOCYTES LARGE Abnormal NEGATIVE [facility] Comment on above: Performed By: #### U MICRO, ERUR #### [facility] [address] [place] [address] Dr. Alfredo Lizama Nitrite Ql (U) Negative Normal NEGATIVE [facility] Comment on above: Performed By: #### U MICRO, ERUR #### [facility] [address] [address] [address] Alfredo Lizama pH (U) 7.0 [pH] Normal 5-9 [facility] Comment on above: Performed By: #### U MICRO, ERUR #### [facility] [address] [place] [address] Dr. Alfredo Lizama SPEC GRAVITY <=1.005 Abnormal 1.005-<=1. 025 [facility] Comment on above: Performed By: #### U MICRO, ERUR #### [facility] [address] [place] [address] Dr. Alfredo Lizama UA PROTEIN Negative Normal NEGATIVE/ TRACE [facility] Comment on above: Performed By: #### U MICRO, ERUR #### [facility] [address] [place] [address] Dr. Alfredo Lizama UR MICRO IND INDICATED Normal [facility] Comment on above: Performed By: #### U MICRO, ERUR #### [facility] [address] [address] [address] Alfredo Lizama Urobilinogen Qn (U) 0.2 {Tesha'U}/dL Normal 0.2 - 1. 0 [facility] Comment on above: Performed By: #### U MICRO, ERUR #### [facility] [address] [place] [address] Dr. Alfredo Lizama URINE MICROSCOPIC ONLYon BACTERIA MODERATE Abnormal NONE SEEN [facility] Comment on above: Performed By: #### U MICRO, ERUR #### [facility] [address] [place] [address] Dr. Alfredo Lizama Bacteria identified Cx Nom (U) INDICATED Normal [facility] Comment on above: Performed By: #### U MICRO, ERUR #### [facility] [address] [place] [address] Dr. Alfredo Lizama CAST NONE SEEN Normal NONE SEEN [facility] Comment on above: Performed By: #### U MICRO, ERUR #### [facility] [address] [place] [address] Dr. Alfrdeo Lizama Crystals LM Nom (Urine sed) NONE SEEN Normal NONE SEEN [facility] Comment on above: Performed By: #### U MICRO, ERUR #### [facility] [address] [place] [address] Dr. Alfredo Lizama Epithelial cells LM Ql (Urine sed) FEW Abnormal NONE SEEN /RARE [facility] Comment on above: Performed By: #### U MICRO, ERUR #### [facility] [address] [place] [address] Dr. Alfredo Lizama MUCOUS NONE SEEN Normal NONE SEEN [facility] Comment on above: Performed By: #### U MICRO, ERUR #### [facility] [address] [place] [address] Dr. Alfredo Lizama RBC 5-10 Abnormal 0-2 [facility] Comment on above: Performed By: #### U MICRO, ERUR #### [facility] [address] [place] [address] Dr. Alfredo Lizama WBC (U) [#/Vol] /uL Abnormal NONE SEEN [facility] Comment on above: Performed By: #### U MICRO, ERUR #### [facility] [address] [address] [address] Alfredo Lizama Clinical Event Note-Need for [...] of the lumbar region. Provider/Team Contact Info-Pager [id number] Electronic Signatures: Sharmin Guaman (STRATEGIES ANALYST-SERVICE STATION OPERATOR) (Signed 02-Oct-2021 15:19) Authored: Clinical Event Note Last Updated: 02-Oct-2021 15:19 by Sharmin Guaman (STRATEGIES ANALYST-SERVICE STATION OPERATOR) Normal [facility] Clinical Event Note-Need for wheel [...] self propel or has a child care group leader to provide assistance. Provider/Team Contact Info-Pager [id number] Electronic Signatures: Sharmin Guaman (STRATEGIES ANALYST-SERVICE STATION OPERATOR) (Signed 02-Oct-2021 15:27) Authored: Clinical Event Note Last Updated: 02-Oct-2021 15:27 by Sharmin Guaman (STRATEGIES ANALYST-SERVICE STATION OPERATOR) Normal [facility] Daily Progress Note-Neurosur geryon 10-02-2021 Daily Progress Note-Neurosurgery Service: Neurosurgery Subjective Data: MORALES LEE is a 46 year old Female who is Hospital Day # 18 and POD #11 for posterior L4-L5 decompression;posterior L4-L5 arthrodesis. Objective Data: Objective Information: T PRBPSpO2 [id number]/8397% Date/Time10/02 1: 1: 1: 1: 1:28 Range(36.2C - 37.6C ) (76 - 88 ) (14 - 18 ) (104 - 138 )/ (68 - 83 ) (93% - 97% ) Highest temp of 37.6 C was recorded at 10/01 16:06 Pain reported at 10/01 16:06: 0 = None ---- Intake and Output ----- Mn/Dy/[facility] Oct 02, 2021 6:00 am000 Oct 01, 2021 10:00 pm000 Oct 01, 2021 2:00 [id number] The Intake and Output Totals for the [...] pRBC, incr to MRI TS/LS L4 stenosis 1/17 s/p L4/5 lami, accessory bobby placement 09/28 Prevena/drain dc'd 09/30 patient unable [...] the note. I personally evaluated the patient [id number] Electronic Signatures: Kenneth Philippe (Resident)) (Signed 02-Oct-2021 [...] pain and duration of trip. Electronic Signatures: Emma Izaguirre (STRATEGIES ANALYST-SERVICE STATION OPERATOR) (Signed 01-Oct-2021 17:11) Authored: Clinical Event Note Last Updated: 01-Oct-2021 17:11 by Emma Izaguirre (STRATEGIES ANALYST-SERVICE STATION OPERATOR) Normal [facility] Clinical Event Note-Need for hospital [...] Pain worsened when lying flat. Electronic Signatures: Emma Izaguirre (STRATEGIES ANALYST-SERVICE STATION OPERATOR) (Signed 01-Oct-2021 14:48) Authored: Clinical Event Note Last Updated: 01-Oct-2021 14:48 by Emma Izaguirre (STRATEGIES ANALYST-SERVICE STATION OPERATOR) Normal [facility] Daily Progress Note-Neurosur jinny 10-01-2021 Daily Progress Note-Neurosurgery Service: Neurosurgery Subjective Data: MORALES LEE is a 46 year old Female who is Hospital Day # 17 and POD #10 for posterior L4-L5 decompression;posterior L4-L5 arthrodesis. Objective Data: Objective Information: T PRBPSpO2 [id number]/7194% Date/Time10/01 0: 0: 0:381 0:381 0:38 Range(35.6C - 36.8C ) (64 - 96 ) (16 - 19 ) (94 - 138 )/ (59 - 83 ) (92% - 94% ) Pain reported at 09/30 9:00: 2 = Mild ---- Intake and Output ----- Mn/Dy/Year TimeIntakeOutputNet Sep 29, 2021 10:00 [id number] Sep 29, 2021 2:00 [id number] Sep 29, 2021 6:00 am000 The Intake [...] L4 stenosis 09/21 s/p L4/5 lami, accessory bobby placement 09/28 Prevena/drain dc'd 09/30 patient unable [...] Updated: 01-Oct-2021 10:29 by Lex Frederick) Normal [facility] Daily Progress Note-Neurosurgery This report has been cancelled. Normal [facility] Daily Progress Note-Nuha stearns 09-30-2021 Daily Progress Note-Neurosurgery Service: Neurosurgery Subjective Data: MORALES LEE is a 46 year old Female who is Hospital Day # 15 and POD #8 for posterior L4-L5 decompression;posterior L4-L5 arthrodesis. Objective Data: Objective Information: T PRBPSpO2 [id number]/7393% Date/Time09/29 16: 16: 16: 16: 16:00 Range(36C - 36.7C ) (67 - 86 ) (17 - 20 ) (94 - 153 )/ (15 - 113 ) (93% - 98% ) Pain reported at 09/29 9:56: 5 = Moderate ---- Intake and Output ----- Mn/Dy/Year TimeIntakeOutputNet Sep 29, 2021 2:00 [id number] Sep 29, 2021 6:00 am000 Sep 28, 2021 10:00 [id number] The Intake and Output Totals for the [...] L4 stenosis 09/21 s/p L4/5 lami, accessory bobby placement 09/28 Prevena/drain dc'd Plan: tele AFO [...] the note. I personally evaluated the patient [id number] Electronic Signatures: Lex Frederick) (Signed 30-Sep-2021 11:18) Authored: Note Completion Co-Signer: Service, Subjective Data, Objective Data, Assessment and Plan, Note Completion Jaya Mosquera (Resident)) (Signed 30-Sep-2021 03:18) Authored: Service, Subjective Data, Objective Data, Assessment and Plan, Note Completion Last Updated: 30-Sep-2021 11:18 by Lex Frederick) Normal [facility] Rehab Cdjm-xd-jglioohrw - co -tx /c OT to address multidiscipon 09-30-2021 Rehab Vkil-zd-sahbtcswj - co-tx /c OT to address multidiscip Rehab: Info: Disciplinephysical inhalation therapy aide Mode of Treatmentphysical therapy; co-treatment; co-tx /c OT to address multidisciplinary functional needs and maximize pt's safety. Time IN12:15 Time OUT12:55 Total Treatment [id number] Patient in ... at end of sessionbed, 3 railings up; alarm off; not on at start of visit Communicated with ... at end of sessionbedside nurse Patient Effortgood Symptoms Noted During/After Treatmentfatigue Treatment Considerations/CommentsEx tensive discussion /c amongst SURGERY AIDE, OT, and pt regarding her current physical [...] rolling right; rolling left; scooting/bridging Roll Left [place] (Bed Mobility)moderate assist (50% patient effort); 1 person assist; nonverbal cues (demo/gesture); verbal cues Roll Right [place] (Bed Mobility)moderate assist (50% patient effort); 1 person assist; nonverbal cues (demo/gesture); verbal cues Scoot/Bridge [place] (Bed Mobility)maximum assist (25% patient effort); 2 person assist; nonverbal cues (demo/gesture); verbal cues Aqdnjy-mj-Pxc [place] (Bed Mobility)maximum assist (25% patient effort); 2 person assist; nonverbal cues (demo/gesture); verbal cues Wwg-ej-Mkpdxy [place] (Bed Mobility)maximum assist (25% patient effort); 2 [...] Pt repositioned back to sitting EOB. Sit-Stand [place] (Transfers)dependent (less than 25% patient effort) Sit-Stand Assistive Device (Transfers)mechanical lift/aid Stand-Sit [place] (Transfers)dependent (less than 25% patient effort) Stand-Sit [...] Score8 Short Term Goals: Bed Mobility: Date [id number] Bed Mobility: [place] Level Goalminimum assist (75% patients effort) Bed Mobility: Physical Assist Level Goal1-person assist, verbal cues Bed Mobility: Time Frame for Goal2 wks Transfer: Established Transfer: Transfer Type Gbgvzjl-ts-scfrj/chair-to -bed; woa-at-kvpdn/jrgti-qc-nwb Transfer: [place] Level Goalmoderate assist (50% patients effort) Transfer: Physical Assist Level Goal1-person assist; verbal cues Transfer: Assistive Device Goalrolling walker Transfer: Time Frame for Goal2 wks Gait: Established Gait: [place] Level Goalmoderate assist (50% patients (more content not included)... Normal [facility] Rehab Note-wood lather apy - co-tx with PT to maximizeon 09-30-2021 Rehab Note-occupational therapy - co-tx with PT to maximize Rehab: Info: Disciplineoccupational therapist Mode of Treatmentoccupational therapy; co-tx with PT to maximize pt's mobility and safety. Time IN12:15 Time OUT12:55 Total Treatment [id number] Patient in ... at end of sessionbed, [...] olling right; rolling left; scooting/bridging Roll Left [place] (Bed Mobility)moderate assist (50% patient effort); 1 person assist; nonverbal cues (demo/gesture); verbal cues Roll Right [place] (Bed Mobility)moderate assist (50% patient effort); 1 person assist; nonverbal cues (demo/gesture); verbal cues Scoot/Bridge [place] (Bed Mobility)maximum assist (25% patient effort); 2 [...] lower body dressing; upper body dressing; bathing [place] Level (Bathing)set up; verbal cues; moderate assist (50% patient effort); 1 person assist Comment (Bathing)anticipated due to impaired balance, strength, and pain. [place] Level (Upper Body Dressing)set up; verbal cues; moderate assist (50% patient effort) Comment (Upper Body Dressing)anticipated due to impaired balance, strength, and pain. [place] Level (Lower Body Dressing)don; socks; dependent (less than 25% patient effort) Position (Lower Body Dressing)supine [place] Level (Grooming)modified independence Comment (Grooming)Pt observed applying Orajel to gums, able to manage packaging, cap un/screwing, and application. [place] Level (Feeding)modified independence Comment (Feeding)Pt able to retrieve OJ cup from tray table at R side, bring to mouth, and drink appropriately. [place] Level (Toileting)dependent (less than 25% patient effort); [...] Score15 Short Term Goals: Bed Mobility: Date [id number]-Jmy-1332 Bed Mobility: [place] Level Goalcontact guard Bed Mobility: Physical Assist Level Goalset-up, verbal cues Bed Mobility: Time Frame for Goal2 wks Transfer: Established [id number]-0839 Transfer: Transfer Type Hkjgybc-tv-fsbfa/chair-to -bed; ghg-gm-yrpzn/fuxqf-fh-idu ; toilet Transfer: [place] Level Goalminimum assist (75% patients effort) Transfer: Physical Assist Level Goalset-up; verbal cues; 1-person assist Transfer: Assistive Device GoalLRD Transfer: Time Frame for Goal2 wks Balance: Established [id number]-Eme-1366 Balance: Goal DetailsPt will perform ADL while reaching outside MADDIE and returning self to midline >8 minutes with set-up assist, SBA, and minimal verbal cues for safety. Enrique (more content not included)... Normal [facility] Daily Progress Note-Neurosur leonidasyon 09-29-2021 Daily Progress Note-Neurosurgery Service: Neurosurgery Subjective Data: MORALES LEE is a 46 year old Female who is Hospital Day # 14 and POD #7 for posterior L4-L5 decompression;posterior L4-L5 arthrodesis. Objective Data: Objective Information: T PRBPSpO2 [id number]/6993% Date/Time09/28 4: 8: 8: 8: 8:00 Range(36C [...] 2021 6:00 am000 Sep 27, 2021 10:00 [id number] Sep 27, 2021 2:00 [id number] The Intake and Output Totals for the last 24 hours are: IntakeOutputNet [id number] Physical Exam by System: Neurological: A&Ox3 RUE [...] L4 stenosis 09/21 s/p L4/5 lami, accessory bobby placement 09/28 Prevena/drain dc'd Plan: tele AFO [...] the note. I personally evaluated the patient [id number] Electronic Signatures: Lex Frederick () (Signed 29-Sep-2021 09:23) Authored: Note Completion Co-Signer: Service, Subjective Data, Objective Data, Assessment and Plan, Note Completion Jaya Mosquera (Resident)) (Signed 29-Sep-2021 03:01) Authored: Service, Subjective Data, Objective Data, Assessment and Plan, Note Completion Last Updated: 29-Sep-2021 09:23 by Lex Frederick) Normal [facility] Rehab Naxm-zx-iidtjzmim - co -tx /c OT to address multidiscipon 09-29-2021 Rehab Mkmt-bz-wsujwavxg - co-tx /c OT to address multidiscip Rehab: Info: Disciplinephysical inhalation therapy aide Mode of Treatmentphysical therapy; co-treatment; co-tx /c OT to address multidisciplinary functional needs and maximize pt's safety. Time IN14:30 Time OUT15:40 Total Treatment [id number] Patient in ... at end of sessionbed, [...] to sit; sit to supine Roll Left [place] (Bed Mobility)maximum assist (25% patient effort); 2 person assist; verbal cues; nonverbal cues (demo/gesture) Roll Right [place] (Bed Mobility)maximum assist (25% patient effort); 2 person assist; verbal cues; nonverbal cues (demo/gesture) Scoot/Bridge [place] (Bed Mobility)maximum assist (25% patient effort); 2 person assist; nonverbal cues (demo/gesture); verbal cues Ebvkju-sd-Ehj [place] (Bed Mobility)maximum assist (25% patient effort); 2 person assist; nonverbal cues (demo/gesture); verbal cues Jqz-po-Jahvrb [place] (Bed Mobility)verbal cues; nonverbal cues (demo/gesture); maximum [...] Pt repositioned back to sitting EOB. Sit-Stand [place] (Transfers)dependent (less than 25% patient effort) Sit-Stand Assistive Device (Transfers)mechanical lift/aid Stand-Sit [place] (Transfers)dependent (less than 25% patient effort) Stand-Sit [...] Score8 Short Term Goals: Bed Mobility: Date Dkhgrduxmco79-Kbu-4980 Bed Mobility: [place] Level Goalminimum assist (75% patients effort) Bed Mobility: Physical Assist Level Goal1-person assist, verbal cues Bed Mobility: Time Frame for Goal2 wks Transfer: Established [id number] Transfer: Transfer Type Conowrx-kt-shawp/chair-to -bed; ebz-st-qheeg/oxljk-do-btz Transfer: [place] Level Goalmoderate assist (50% patients effort) Transfer: Physical Assist Level Goal1-person assist; verbal cues Transfer: Assistive Device Goalrolling walker Transfer: Time Frame for Goal2 wks Gait: Established [id number]-8130 Gait: [place] Level Goalmoderate assist (50% patients effort) Gait: Physical Assist Level1-person assist; verbal cues Gait: Assistive Device Goalrolling walker Gait: Distance Goal15 feet Gait: Time Frame for Goal2 wks Balance: Established [id number]-Lfm-8174 Balance: Goal DetailsSitting EOB 20 minutes with 0-1 UE support, SBA for static sitting, CGA for dynamic. Standing 1 minute with FWW and CGA Education: Learnerpatient Topicrehab plan of care; discharge recommendations including destination and/or equipment Outcome Summary: Progress: Physical Therapyprogress towards functional goals is fair Outcome (more content not included)... Normal [facility] Rehab Note-wood lather apy - co-tx with PT to maximizeon 09-29-2021 Rehab Note-occupational therapy - co-tx with PT to maximize Rehab: Info: Disciplineoccupational therapist Mode of Treatmentoccupational therapy; co-tx with PT to maximize pt's mobility and safety. Time IN14:30 Time OUT15:40 Total Treatment [id number] Patient in ... at end of sessionbed, [...] to sit; sit to supine Roll Left [place] (Bed Mobility)maximum assist (25% patient effort); 2 person assist; verbal cues; nonverbal cues (demo/gesture); multiple rolls to adjust harness Roll Right [place] (Bed Mobility)maximum assist (25% patient effort); 2 person assist; verbal cues; nonverbal cues (demo/gesture); multiple rolls to adjust harness Scoot/Bridge [place] (Bed Mobility)maximum assist (25% patient effort); 2 person assist; nonverbal cues (demo/gesture); verbal cues; boost HOB Kqzvyb-tx-Zdw [place] (Bed Mobility)maximum assist (25% patient effort); 2 person assist; nonverbal cues (demo/gesture); verbal cues Jrt-qn-Onfxnq [place] (Bed Mobility)verbal cues; nonverbal cues (demo/gesture); maximum assist (25% patient effort); 2 person assist Assistive Device (Bed Mobility)draw sheet; bed rails Transfer Assessment/Interventionss it to stand transfer; stand to sit transfer Sit-Stand [place] (Transfers)dependent (less than 25% patient effort) Sit-Stand Assistive Device (Transfers)mechanical lift/aid; Faye Plus Stand-Sit [place] (Transfers)dependent (less than 25% patient effort) Stand-Sit Assistive Device (Transfers)mechanical lift/aid; Faye Plus Safety Issues Impacting Function (Mobility)awareness of need for assistance; insight into deficits/self awareness Impairments Impacting Function (Mobility)endurance/activ ity tolerance; strength; balance; coordination; postural/trunk control ADL: BADL Assessment/Interventionto ileting; feeding; grooming; lower body dressing; upper body dressing; bathing [place] Level (Bathing)set up; verbal cues; moderate assist (50% patient effort); 1 person assist Comment (Bathing)anticipated due to impaired balance, strength, and pain. [place] Level (Upper Body Dressing)set up; verbal cues; moderate assist (50% patient effort) Comment (Upper Body Dressing)anticipated due to impaired balance, strength, and pain. [place] Level (Lower Body Dressing)don; socks; dependent (less than 25% patient effort) Position (Lower Body Dressing)supine [place] Level (Grooming)set up; contact guard Comment (Grooming)anticipated due to impaired balance, strength, and pain. [place] Level (Feeding)set up; modified independence Comment (Feeding)anticipated [place] Level (Toileting)dependent (less than 25% patient effort); purewick Impairments, BADL Safety/Performancebalance ; cognition; endurance/activity tolerance; strength; trunk/postural control Cognitive Impairments, BADL Safety/Performanceawarene ss, need for assistance; insight into deficits/self awareness; judgment; problem solving/reasoning Motor: Sitting, Static (Balance)good balance SBA Sitting, Dynamic (Balance)fair balance CGA Gbl-yt-Qokrc (Balance)poor balance Total A via Faye Plus lift Standing, Static (Balance)poor balance Max A x1 - via Faye Plus Standing, Dynamic (Balance)unable to balance Balance ActivitiesPt sat EOB ~20 minutes throughout session primarily with SB (more content not included)... Normal [facility] Clinical Event Note-Medical Assessmenton 09-28-2021 [...] 09/21/21 for a L4/5 laminectomy with accessory bobby placement. Constipation - Patient with 1 bm this am; - KUB improved from yesterday - GI following - Cont. Miralax PO TID scheduled - Cont. docusate/senna #2 tabs PO BID - Mineral oil enema alternating with tap water enema [id number] - Bisacodyl suppository QHS Daily - Monitor Urinary Retention - Resolved; patient voiding on own; Post-operative Pain - POD 7 from L4/5 laminectomy with accessory bobby placement and POD 10 from a extension [...] wound check 10/07/21 at 10:15 am, [facility] 5th floor - F/U with [...] note 45 minutes; Electronic Signatures: Concetta Shi (STRATEGIES ANALYST-SERVICE STATION OPERATOR) (Signed 28-Sep-2021 14:31) Authored: Clinical Event Note Last Updated: 28-Sep-2021 14:31 by Concetta Shi (STRATEGIES ANALYST-SERVICE STATION OPERATOR) [facility] Daily Progress Note-Gastroen terologyon 09-28-2021 Daily Progress Note-Gastroenterology Service: Gastroenterology Subjective Data: MORALES LEE is a 46 year old Female who is Hospital Day # 14 and POD #7 for posterior L4-L5 decompression;posterior L4-L5 arthrodesis. No events overnight. Had one bowel movement this am. Otherwise no complaints. Objective Data: Objective Information: T PRBPSpO2 [id number]/6993% Date/Time09/28 4: 8: 8:001 8: 8:00 Range(36C - 36.6C ) (73 [...] 2021 6:00 am000 Sep 27, 2021 10:00 [id number] Sep 27, 2021 2:00 [id number] The Intake and Output Totals for the last 24 hours are: IntakeOutputNet [id number] Physical Exam by System: Constitutional: Constitutional: A&Ox3, [...] on 09/18 and s/p L4/5 lami, accessory bobby placement n 09/21. GI is consulted for [...] recommend tr (more content not included)... Normal [facility] Daily Progress Note-Neurosur leonidasyon 09-28-2021 Daily Progress Note-Neurosurgery Service: Neurosurgery Subjective Data: MORALES LEE is a 46 year old Female who is Hospital Day # 14 and POD #7 for posterior L4-L5 decompression;posterior L4-L5 arthrodesis. Objective Data: Objective Information: T PRBPSpO2 [id number]/4893% Date/Time09/28 4: 4: 4: 4: 4:00 Range(36C - 36.6C ) (72 - 87 ) (15 - 22 ) (92 - 153 )/ (48 - 113 ) (92% - 99% ) As of 27-Sep-2021 22:00:00, patient is on 2 L/min of oxygen via nasal cannula. Pain reported at 09/27 22:00: 0 = None ---- Intake and Output ----- Mn/Dy/Year TimeIntakeOutputNet Sep 26, 2021 10:00 [id number] Sep 26, 2021 2:00 [id number] The Intake and Output Totals for the last 24 hours are: IntakeOutputNet [id number] Physical Exam by System: Neurological: A&Ox3 RUE [...] L4 stenosis 09/21 s/p L4/5 lami, accessory bobby placement 09/28 Prevena/drain dc'd Plan: tele AFO [...] the note. I personally evaluated the patient [id number] Electronic Signatures: Fidel Maciel (Resident)) (Signed 28-Sep-2021 05:47) Authored: Service, Subjective Data, Objective Data, Assessment and Plan, Note Completion Lex Frederick) (Signed 28-Sep-2021 07:32) Authored: Note Completion Co-Signer: Service, Subjective Data, Objective Data, Assessment and Plan, Note Completion Last Updated: 28-Sep-2021 07:32 by Lex Frederick) Normal [facility] RENAL FUNCTION PANELon 09-28 Albumin [Mass/Vol] 3.1 g/dL Low 3.4 - 5.0 [facility] Comment on above: Performed By: #### R ENAL ####[id number] [place] [address] Anion gap [Moles/Vol] 17 mmol/L Normal 10 - 20 [facility] Comment on above: Performed By: #### R ENAL ####[id number] [place] [address] Calcium [Mass/Vol] 8.4 mg/dL Low 8.6 - 10.6 [facility] Comment on above: Performed By: #### R ENAL ####[id number] [place] [address] Chloride [Moles/Vol] 102 mmol/L Normal 98 - 107 [facility] Comment on above: Performed By: #### R ENAL ####[id number] [place] [address] Creatinine [Mass/Vol] 0.47 mg/dL Low 0.50 - 1.05 [facility] Comment on above: Performed By: #### R ENAL ####[id number] [place] [address] eGFR FEMALE >90 Normal >90 [facility] Comment on above: Result Comment: CALC ULATIONS OF ESTIMATED GFR ARE PERFORMED USING THE 2020 CKD-EPI STUDY REFIT EQUATION WITHOUT THE RACE VARIABLE FOR THE IDMS-TRACEABLE CREATININE METHODS. https://jasn.asnjournals.org/content//ASN.121 5762875 Performed By: #### R ENAL ####[id number] [place] [address] Glucose [Mass/Vol] 74 mg/dL Normal 74 - 99 [facility] Comment on above: Performed By: #### R ENAL ####[id number] [place] [address] HCO3 (Bld) [Moles/Vol] 27 mmol/L Normal 21 - 32 [facility] Comment on above: Performed By: #### R ENAL ####[id number] [place] [address] Phosphate [Mass/Vol] 3.4 mg/dL Normal 2.5 - 4.9 [facility] Comment on above: Result Comment: The performance characteristics of phosphorus testing in heparinized plasma have been validated by the individual laboratory site where testing is performed. Testing on heparinized plasma is not approved by the FDA; however, such approval is not necessary. Performed By: #### R ENAL ####[id number] [place] [address] Potassium [Moles/Vol] 3.7 mmol/L Normal 3.5 - 5.3 [facility] Comment on above: Performed By: #### R ENAL ####[id number] [place] [address] Sodium [Moles/Vol] 142 mmol/L Normal 136 - 145 [facility] Comment on above: Performed By: #### R ENAL ####[id number] [place] [address] Urea nitrogen [Mass/Vol] 6 mg/dL Normal 6 - 23 [facility] Comment on above: Performed By: #### R ENAL ####[id number] [place] [address] Radiologyon 09-28-2021 XR Abdomen AP Normal [facility]-Gastroen terology-[place] [facility] I Work Phone: Rehab Note-attemptedon 09-28 Rehab Note-attempted Rehab: Info: Disciplinephysical inhalation therapy aide Mode of Treatmentattempted Time IN15:30 Reason Treatment Not Performedpatient/family declined treatment, not feeling well Treatment Considerations/CommentsPt declined therapy at this time 2* increased fatigue, nausea. Pt stated NO! NO! NO! upon therapists arrival, even /c increased encouragement. Will reattempt as schedule allows. Short Term Goals: Bed Mobility: Date Jsyxkacoyus23-Rdt-3562 Bed Mobility: [place] Level Goalminimum assist (75% patients effort) Bed Mobility: Physical Assist Level Goal1-person assist, verbal cues Bed Mobility: Time Frame for Goal2 wks Transfer: Established Transfer: Transfer Type Awtbnir-wj-mhmct/chair-to -bed; iik-hq-ogvcn/gmmuu-zt-akx Transfer: [place] Level Goalmoderate assist (50% patients effort) Transfer: Physical Assist Level Goal1-person assist; verbal cues Transfer: Assistive Device Goalrolling walker Transfer: Time Frame for Goal2 wks Gait: Established Gait: [place] Level Goalmoderate assist (50% patients effort) Gait: Physical Assist Level1-person assist; verbal cues Gait: Assistive Device Goalrolling walker Gait: Distance Goal15 feet Gait: Time Frame for Goal2 wks Balance: Established [id number]-Ikh-8453 Balance: Goal DetailsSitting EOB 20 minutes with 0-1 UE support, SBA for static sitting, CGA for dynamic. Standing 1 minute with FWW and CGA Electronic Signatures: Yosi Campbell (SURGERY AIDE) (Signed 28-Sep-2021 15:32) Entered: Short Term Goals, Info Authored: Info, Short Term Goals Boone Broussard (PT) (Signed 01-Oct-2021 09:01) Co-Signer: Short Term Goals, Info Last Updated: 01-Oct-2021 09:01 by Boone Broussard (PT) Normal [facility] Rehab Note-attempted Rehab: Info: Mode [...] 28-Sep-2021 15:28 by Silvana Marshall (OT) Normal [facility] Renal Function Panelon 09-28 Albumin [...] RACE VARIABLE FOR THE IDMS-TRACEABLE CREATININE METHODS.https://jasn.asnjournals.org/content/ /ASN.0372419198 ABDOMEN AP VIEWon 01-24-2 022 TH ABDOMEN AP VIEW Patient Name: MORALES LEE STUDY: ABDOMEN AP VIEW; 09/28/2021 1:22 pm INDICATION: Abd. dist. . COMPARISON: 09/27/2021 abdominal radiograph. ACCESSION NUMBER(S): [id number] ORDERING CLINICIAN: CONCETTA SHI FINDINGS: Two AP [...] changes. Redemonstration of posterolateral pedicle screw and bobby fixation of the thoracolumbar spine with screw [...] as stated. This study was interpreted at [facility], [place], [place]. Electronically signed by: TANIKA SUTTON MD [facility] Consult-Gastroenterologyon 0 09-27-2021 Consult-Gastroenterology Service: Service: Gastroenterology [...] on 09/18 and s/p L4/5 lami, accessory bobby placement n 09/21. GI is consulted for [...] admission for post-op pain including a dilaudid FISH WARDEN. Has been on scheduled bowel regimen with [...] penicillin: Unknown Objective: Objective Information: T PRBPSpO2 [id number]/73131% Date/Time09/27 4: 4: 4: 4:00 Range (76 [...] C6-7 ACDFF, (more content not included)... Normal [facility] Daily Progress Note-Neurosur leonidasyon 09-27-2021 Daily Progress Note-Neurosurgery Service: Neurosurgery Subjective Data: MORALES LEE is a 46 year old Female who is Hospital Day # 13 and POD #6 for posterior L4-L5 decompression;posterior L4-L5 arthrodesis. Objective Data: Objective Information: T PRBPSpO2 [id number]/21454% Date/Time09/26 11:0809/27 4: 4: 4: 4:00 Range(37C [...] 2021 6:00 am000 Sep 26, 2021 10:00 [id number] Sep 26, 2021 2:00 [id number] The Intake and Output Totals for the last 24 hours are: IntakeOutputNet [id number] Physical Exam by System: Neurological: A&Ox3 RUE [...] L4 stenosis 09/21 s/p L4/5 lami, accessory bobby placement Plan: tele Drain/Prevena AFO Chronic pain [...] the note. I personally evaluated the patient [id number] Electronic Signatures: Chaparro Umana (Resident)) (Signed 27-Sep-2021 06:11) Authored: Service, Subjective Data, Objective Data, Assessment and Plan, Note Completion Natalia Palacios) (Signed 08-Oct-2021 14:31) Authored: Note Completion Co-Signer: Service, Subjective Data, Objective Data, Assessment and Plan, Note Completion Last Updated: 08-Oct-2021 14:31 by Natalia Palacios) Normal [facility] MAGNESIUMon 09-27-2021 Magnesium [Mass/Vol] 1.80 mg/dL Normal 1.60 - 2.40 [facility] Comment on above: Performed By: #### C BC #### [facility] [address] [place] [address] Magnesium, Serumon Magnesium [Mass/Vol] 1.80 mg/dL See Below MG-G astroen terology-[facility] Work Phone: Comment on above: Reference Range: 1.6 0 - 2.40 RENAL FUNCTION PANELon 09-27 Albumin [Mass/Vol] 3.3 g/dL Low 3.4 - 5.0 [facility] Comment on above: Performed By: #### R ENAL #### [facility] [address] [place] [address] Anion gap [Moles/Vol] 17 mmol/L Normal 10 - 20 [facility] Comment on above: Performed By: #### R ENAL #### [facility] [address] [place] [address] Calcium [Mass/Vol] 8.5 mg/dL Low 8.6 - 10.6 [facility] Comment on above: Performed By: #### R ENAL #### [facility] [address] [place] [address] Chloride [Moles/Vol] 98 mmol/L Normal 98 - 107 [facility] Comment on above: Performed By: #### R ENAL #### [facility] [address] [place] [address] Creatinine [Mass/Vol] 0.44 mg/dL Low 0.50 - 1.05 [facility] Comment on above: Performed By: #### R ENAL #### [facility] [address] [place] [address] eGFR FEMALE >90 Normal >90 [facility] Comment on above: Result Comment: CALC ULATIONS OF ESTIMATED GFR ARE PERFORMED USING THE 2020 CKD-EPI STUDY REFIT EQUATION WITHOUT THE RACE VARIABLE FOR THE IDMS-TRACEABLE CREATININE METHODS. https://jasn.asnjournals.org/content//ASN.448 3481618 Performed By: #### R ENAL #### [facility] [address] [place] [address] Glucose [Mass/Vol] 91 mg/dL Normal 74 - 99 [facility] Comment on above: Performed By: #### R ENAL #### [facility] [address] [place] [address] HCO3 (Bld) [Moles/Vol] 26 mmol/L Normal 21 - 32 [facility] Comment on above: Performed By: #### R ENAL #### [facility] [address] [place] [address] Phosphate [Mass/Vol] 4.0 mg/dL Normal 2.5 - 4.9 [facility] Comment on above: Result Comment: The performance characteristics of phosphorus testing in heparinized plasma have been validated by the individual laboratory site where testing is performed. Testing on heparinized plasma is not approved by the FDA; however, such approval is not necessary. Performed By: #### R ENAL #### [facility] [address] [place] [address] Potassium [Moles/Vol] 4.1 mmol/L Normal 3.5 - 5.3 [facility] Comment on above: Performed By: #### R ENAL #### [facility] [address] [place] [address] Sodium [Moles/Vol] 137 mmol/L Normal 136 - 145 [facility] Comment on above: Performed By: #### R ENAL #### [facility] [address] [place] [address] Urea nitrogen [Mass/Vol] 6 mg/dL Normal 6 - 23 [facility] Comment on above: Performed By: #### R ENAL #### [facility] [address] [place] [address] Radiologyon 09-27-2021 XR Abdomen AP Normal MG-Gastroen [...] RACE VARIABLE FOR THE IDMS-TRACEABLE CREATININE METHODS.https://jasn.asnjournals.org/content/early/ /ASN.6231817885 TH ABDOMEN AP VIEWon 022 ABDOMEN AP VIEW Patient Name: MORALES LEE STUDY: ABDOMEN AP VIEW; 09/27/2021 2:33 am INDICATION: vomiting, constipation . COMPARISON: None. ACCESSION NUMBER(S): [id number] ORDERING CLINICIAN: FIDEL MACIEL FINDINGS: 2 AP [...] changes. There is posterolateral pedicle screw and bobby fixation of the thoracolumbar spine, with screw fixation of the bilateral sacral and iliac bones.. IMPRESSION: 1. Nonobstructive bowel gas pattern with gaseous prominence of the stomach and large bowel. There is a large colonic stool burden, consistent with history of constipation. I personally reviewed the images/study and I agree with the findings as stated. This study was interpreted at [facility], [place], [place]. Electronically signed by: DWIGHT MOY MD [facility] Daily Progress Note-Neurosjudy stearns 09-26-2021 Daily Progress Note-Neurosurgery Service: Neurosurgery Subjective Data: MORALES LEE is a 46 year old Female who is Hospital Day # 12 and POD #5 for posterior L4-L5 decompression;posterior L4-L5 arthrodesis. Objective Data: Objective Information: T PRBPSpO2 [id number]/8299% Date/Time09/25 17: 12: 17: 17:08 Range (68 - 98 ) (21 - 23 ) (118 - 136 )/ (69 - 82 ) (92% - 99% ) Pain reported at 09/26 3:00: sleeping ---- Intake and Output ----- Mn/Dy/Year TimeIntakeOutputNet Sep 24, 2021 10:00 [id number] Sep 24, 2021 2:00 [id number] Sep 24, 2021 6:00 [id number] The Intake and Output Totals for the last 24 hours are: IntakeOutputNet [id number] Physical Exam by System: Neurological: A&Ox3 RUE [...] L4 stenosis 09/21 s/p L4/5 lami, accessory bobby placement Plan: tele Drain/Prevena AFO Chronic pain [...] the note. I personally evaluated the patient [id number] Electronic Signatures: Jaya Mosquera (Resident)) (Signed 26-Sep-2021 07:08) Authored: Service, Subjective Data, Objective Data, Assessment and Plan, Note Completion Natalia Palacios) (Signed 08-Oct-2021 14:10) Authored: Note Completion Co-Signer: Service, Subjective Data, Objective Data, Assessment and Plan, Note Completion Last Updated: 08-Oct-2021 14:10 by Natalia Palacios) Normal [facility] Clinical Event Note-POD 4 / Abdominal assessmenton 09-25-2021 Clinical Event Note-POD 4 / Abdominal assessment Clinical Event: Clinical Event Note: TopicPOD 4 / Abdominal assessment Details Patient is POD 4 from a L4/5 laminectomy with accessory bobby placement and POD 7 from a extension [...] 09/21/21 for a L4/5 laminectomy with accessory bobby placement. Constipation - no bm noted in [...] POD 4 from L4/5 laminectomy with accessory bobby placement and POD 7 from a extension [...] wound check 10/07/21 at 10:15 am, [facility] 5th floor - F/U with [...] plan of care. Electronic Signatures: Concetta Shi (STRATEGIES ANALYST-SERVICE STATION OPERATOR) (Signed 25-Sep-2021 13:30) Authored: Clinical Event Note Last Updated: 25-Sep-2021 13:30 by Concetta Shi (STRATEGIES ANALYST-SERVICE STATION OPERATOR) Normal [facility] Daily Progress Note-Nuha stearns 09-25-2021 Daily Progress Note-Neurosurgery Service: Neurosurgery Subjective Data: MORALES LEE is a 46 year old Female who is Hospital Day # 11 and POD #4 for posterior L4-L5 decompression;posterior L4-L5 arthrodesis. Objective Data: Objective Information: T PRBPSpO2 [id number]/6799% Date/Time09/24 16: 16: 16: 16:00 Range (68 - 78 ) (18 - 19 ) (102 - 117 )/ (57 - 73 ) (95% - 99% ) As of 24-Sep-2021 21:40:00, patient is on 2 L/min of oxygen via nasal cannula. Pain reported at 09/24 21:40: 8 = Severe ---- Intake and Output ----- Mn/Dy/Year TimeIntakeOutputNet Sep 23, 2021 10:00 [id number] Sep 23, 2021 6:00 [id number] The Intake and Output Totals for the last 24 hours are: IntakeOutputNet [id number] Physical Exam by System: Neurological: A&Ox3 RUE [...] L4 stenosis 09/21 s/p L4/5 lami, accessory bobby placement Plan: tele Drain/Prevena AFO Chronic pain [...] the note. I personally evaluated the patient [id number] Electronic Signatures: Lex Frederick) (Signed 25-Sep-2021 11:57) Authored: Note Completion Co-Signer: Service, Subjective Data, Objective Data, Assessment and Plan, Note Completion Alfredo Hendrickson (Resident)) (Signed 25-Sep-2021 05:56) Authored: Service, Subjective Data, Objective Data, Assessment and Plan, Note Completion Last Updated: 25-Sep-2021 11:57 by Lex Frederick) [facility] Re[facility] Vnus-zk-syglaihir - co -tx /c OT to address multidiscipon 09-25-2021 Rehab Ecsr-yt-swvzxkwai - co-tx /c OT to address multidiscip Rehab: Info: Disciplinephysical inhalation therapy aide Mode of Treatmentphysical therapy; co-treatment; co-tx /c OT to address multidisciplinary functional needs and maximize pt's safety. Time IN15:05 Time OUT15:59 Total Treatment [id number] Patient in ... at end of sessionbed, [...] scooting/bridging; rolling right; rolling left Roll Left [place] (Bed Mobility)maximum assist (25% patient effort); 2 person assist; verbal cues; nonverbal cues (demo/gesture) Roll Right [place] (Bed Mobility)maximum assist (25% patient effort); 2 person assist; verbal cues; nonverbal cues (demo/gesture) Scoot/Bridge [place] (Bed Mobility)maximum assist (25% patient effort); 2 person assist; nonverbal cues (demo/gesture); verbal cues Bkbqxk-cv-Aek [place] (Bed Mobility)maximum assist (25% patient effort); 2 person assist; verbal cues; nonverbal cues (demo/gesture) Gbh-uj-Phlklt [place] (Bed Mobility)maximum assist (25% patient effort); 2 [...] unable to get to full standing. Sit-Stand [place] (Transfers)maximum assist (25% patient effort); verbal cues; nonverbal cues (demo/gesture); 2-3 persona assist Sit-Stand Assistive Device (Transfers)walker, front-wheeled Stand-Sit [place] (Transfers)maximum assist (25% patient effort); nonverbal cues [...] Score8 Short Term Goals: Bed Mobility: Date [id number] Bed Mobility: [place] Level Goalminimum assist (75% patients effort) Bed Mobility: Physical Assist Level Goal1-person assist, verbal cues Bed Mobility: Time Frame for Goal2 wks Transfer: Established [id number] Transfer: Transfer Type Cdjenqu-jc-vguhn/chair-to -bed; trq-sx-lcwlu/ondsz-ym-uhj Transfer: [place] Level Goalmoderate assist (50% patients effort) Transfer: Physical Assist Level Goal1-person assist; verbal cues Transfer: Assistive Device Goalrolling walker Transfer: Time Frame for Goal2 wks Gait: Established Gait: [place] Level Goalmoderate assist (50% patients effort) Gait: [...] goals is gradual Electronic Signatures: Yosi Campbell (SURGERY AIDE) (Signed 25-Sep-2021 16:59) Entered: Outcome Summary, Short Term Goals, Sensory, TherEx, Outcomes Tools, Info, Mobility/Tone Authored: Short Term Goals, Outcome Summary, TherEx, Outcomes Tools, Info, Mobility/Tone, Sensory Boone Broussard (PT) (Signed 01-Oct-2021 09:01) Co-Signer: Outcome Summary, Short Term Goals, Sensory, TherEx (more content not included)... Normal [facility] Rehab Note-wood lather apy - Partial co-tx with PT to tue09-25-2021 Rehab Note-occupational therapy - Partial co-tx with PT to Rehab: Info: Disciplineoccupational therapist Mode of Treatmentoccupational therapy; Partial co-tx with PT to maximize pt's mobility and safety. Time IN15:03 Time OUT15:56 Total Treatment Utocnle86 Patient in ... at end of sessionbed, [...] sit to supine; rolling right Roll Left [place] (Bed Mobility)Pt required assist to bend BLE at knees and to initiate turn at shoulders and hips, verbal cues for grasp on bed rail, technique, direction follow, and encouragement.; set up; verbal cues; maximum assist (25% patient effort); 2 person assist Roll Right [place] (Bed Mobility)Pt required assist to bend BLE at knees and to initiate turn at shoulders and hips, verbal cues for grasp on bed rail, technique, direction follow, and encouragement.; set up; verbal cues; maximum assist (25% patient effort); 2 person assist Scoot/Bridge [place] (Bed Mobility)boost HOB; set up; verbal cues; maximum assist (25% patient effort); 2 person assist Tkhhdh-gf-Luy [place] (Bed Mobility)HOB elevated; set up; verbal cues; maximum assist (25% patient effort); 2 person assist Edv-rt-Iokkcj [place] (Bed Mobility)HOB elevated; set up; verbal cues; maximum assist (25% patient effort); 2 person assist Assistive Device (Bed Mobility)bed rails; draw sheet Transfer Assessment/Interventionss it to stand transfer Sit-Stand [place] (Transfers)set up; verbal cues; maximum assist (25% patient effort); x 2-3 assist Safety Issues Impacting Function (Mobility)ability to follow commands; awareness of need for assistance; insight into deficits/self awareness; judgment; problem solving Impairments Impacting Function (Mobility)balance; cognition; endurance/activity tolerance; pain; strength; postural/trunk control ADL: BADL Assessment/Interventionto ileting; feeding; grooming; lower body dressing; upper body dressing; bathing [place] Level (Bathing)set up; verbal cues; moderate assist (50% patient effort); 1 person assist Comment (Bathing)anticipated due to impaired balance, strength, and pain. [place] Level (Upper Body Dressing)set up; verbal cues; moderate assist (50% patient effort) Comment (Upper Body Dressing)anticipated due to impaired balance, strength, and pain. [place] Level (Lower Body Dressing)don; socks; dependent (less than 25% patient effort) Position (Lower Body Dressing)supine [place] Level (Grooming)set up; contact guard Comment (Grooming)anticipated due to impaired balance, strength, and pain. [place] Level (Feeding)set up; modified independence Comment (Feeding)anticipated [place] Level (Toileting)dependent (less than 25% patient effort); purewick Impairments, BADL Safety/Performancebalance ; cognition; endurance/activity tolerance; strength; trunk/postural control Cognitive Impairments, BADL Safety/Performanceawarene ss, need for assistance; insight into deficits/self awareness; judgment; problem solving/reasoning Motor: Sitting, Static (Balance)good balance SBA Sitting, Dynamic (Balance)fair balance CGA Mdm-jj-Ibbqv (Balance)poor balance Max A x 2-3 - attempted Standing, Static (Balance)unable to balance Standing, Dynamic (Balance)unable to balance Balance ActivitiesPt sat EOB ~30 minutes with SBA/CGA for safety. Pt demonstrated good sitting balance and trunk control. Pt attempted STS transfers 3x with (more content not included)... Normal [facility] Daily Progress Note-Nuha stearns 09-24-2021 Daily Progress Note-Neurosurgery Service: Neurosurgery Subjective Data: MORALES LEE is a 46 year old Female who is Hospital Day # 10 and POD #3 for posterior L4-L5 decompression;posterior L4-L5 arthrodesis. Objective Data: Objective Information: T PRBPSpO2 [id number]/5499% Date/Time09/23 20:4809/23 20: 20:4809/23 20:4809/23 20:48 Range(35.5C - 36.1C ) (66 - 75 ) (16 - 19 ) (90 - 118 )/ (54 - 75 ) (98% - 99% ) As of 23-Sep-2021 22:43:00, patient is on 2 L/min of oxygen via nasal cannula. ---- Intake and Output ----- [facility] 22, 2021 10:00 [id number] Sep 22, 2021 2:00 [id number] Sep 22, 2021 6:00 [id number] The Intake and Output Totals for the last 24 hours are: IntakeOutputNet [id number] Physical Exam by System: Neurological: A&Ox3 RUE [...] L4 stenosis 09/21 s/p L4/5 lami, accessory bobby placement Plan: tele Drain/Prevena AFO script in [...] the note. I personally evaluated the patient [id number] Comments/ Additional Findings Doing well. Kyphotic posture and Back Pain from instability and traumatic chance fracture significantly improved as compared to preop. She developed weakness involving ankle PF/DF following buddhism of alignment from buckling of hypertrophic ligamentum [...] to the (more content not included)... Normal [facility] MAGNESIUMon 09-24-2021 Magnesium [Mass/Vol] 1.71 mg/dL Normal 1.60 - 2.40 [facility] Comment on above: Performed By: #### A FPA3 #### [facility] [address] [place] [address] Magnesium, Serumon 2 Magnesium [Mass/Vol] 1.71 mg/dL See Below MG-G astroen terology-Rosendo moura 6 [facility] Work Phone: Comment on above: Reference Range: 1.6 0 - 2.40 RENAL FUNCTION PANELon 09-24 Albumin [Mass/Vol] 2.6 g/dL Low 3.4 - 5.0 [facility] Comment on above: Performed By: #### R ENAL ####[id number] [place] [address] Anion gap [Moles/Vol] 10 mmol/L Normal - [facility] Comment on above: Performed By: #### R ENAL ####[id number] [place] [address] Calcium [Mass/Vol] 7.7 mg/dL Low 8.6 - 10.6 [facility] Comment on above: Performed By: #### R ENAL ####[id number] [place] [address] Chloride [Moles/Vol] 108 mmol/L High 98 - 107 [facility] Comment on above: Performed By: #### R ENAL ####[id number] [place] [address] Creatinine [Mass/Vol] 0.39 mg/dL Low 0.50 - 1.05 [facility] Comment on above: Performed By: #### R ENAL ####[id number] [place] [address] eGFR FEMALE >90 Normal >90 [facility] Comment on above: Result Comment: CALC ULATIONS OF ESTIMATED GFR ARE PERFORMED USING THE 2020 CKD-EPI STUDY REFIT EQUATION WITHOUT THE RACE VARIABLE FOR THE IDMS-TRACEABLE CREATININE METHODS. https://jasn.asnjournals.org/content//ASN.011 9547629 Performed By: #### R ENAL ####[id number] [place] [address] Glucose [Mass/Vol] 92 mg/dL Normal 74 - 99 [facility] Comment on above: Performed By: #### R ENAL ####[id number] [place] [address] HCO3 (Bld) [Moles/Vol] 29 mmol/L Normal 21 - 32 [facility] Comment on above: Performed By: #### R ENAL ####[id number] [place] [address] Phosphate [Mass/Vol] 3.3 mg/dL Normal 2.5 - 4.9 [facility] Comment on above: Result Comment: The performance characteristics of phosphorus testing in heparinized plasma have been validated by the individual laboratory site where testing is performed. Testing on heparinized plasma is not approved by the FDA; however, such approval is not necessary. Performed By: #### R ENAL ####[id number] [place] [address] Potassium [Moles/Vol] 3.9 mmol/L Normal 3.5 - 5.3 [facility] Comment on above: Performed By: #### R ENAL ####[id number] [place] [address] Sodium [Moles/Vol] 143 mmol/L Normal 136 - 145 [facility] Comment on above: Performed By: #### R ENAL ####[id number] [place] [address] Urea nitrogen [Mass/Vol] 5 mg/dL Low 6 - 23 [facility] Comment on above: Performed By: #### R ENAL ####[id number] [place] [address] Rehab Note-attemptedon 09-24 Rehab Note-attempted Rehab: Info: Mode of Treatmentattempted Time IN15:00 Reason Treatment Not Performedpatient/family declined treatment; Pt declined participation in OT treatment stating she was on a very important call that she needed to take. Electronic Signatures: Silvana Marshall (OT) (Signed 24-Sep-2021 15:29) Authored: Info Last Updated: 24-Sep-2021 15:29 by Silvana Marshall (OT) Normal [facility] Rehab Note-physical therapyo n 09-24-2021 [...] 24-Sep-2021 15:07 by Boone Broussard (PT) Normal [facility] Renal Function Panelon 09-24 Albumin [...] 3.9 mmol/L 3.5 - 5.3 MG- Gastroen terology-Rosedno [...] RACE VARIABLE FOR THE IDMS-TRACEABLE CREATININE METHODS.https://jasn.asnjournals.org/content/ /ASN.5823762948 CBCon 09-23-2021 Erythrocyte distribution width (RBC) [Ratio] 13.1 % Normal 11.5 - 14.5 [facility] Comment on above: Performed By: #### C BC ####[id number] [place] [address] Hematocrit (Bld) [Volume fraction] 30.5 % Low 36.0 - 46.0 [facility] Comment on above: Performed By: #### C BC ####[id number] [place] [address] Hemoglobin (Bld) [Mass/Vol] 9.9 g/dL Low 12.0 - 16.0 [facility] Comment on above: Performed By: #### C BC ####[id number] [place] [address] MCHC (RBC) [Mass/Vol] 32.5 g/dL Normal 32.0 - 36.0 [facility] Comment on above: Performed By: #### C BC ####[id number] [place] [address] MCV (RBC) [Entitic vol] 92 fL Normal 80 - 100 [facility] Comment on above: Performed By: #### C BC ####[id number] [place] [address] NUCLEATED RBC 0.0 /100 WBC Normal 0.0-0.0 [facility] Comment on above: Performed By: #### C BC ####[id number] [place] [address] Platelets (Bld) [#/Vol] 244 10*3/uL Normal 150 - 450 [facility] Comment on above: Performed By: #### C BC ####[id number] [place] [address] RBC 3.33 x10E12/L Low 4.00 - 5.20 [facility] Comment on above: Performed By: #### C BC ####[id number] [place] [address] WBC (Bld) [#/Vol] 8.6 10*3/uL Normal 4.4 - 11.3 [facility] Comment on above: Performed By: #### C BC ####[id number] [place] [address] CBC AND DIFFERENTIALon 09-23 % AUTOMATED IMMATURE GRAN 0.4 % Normal 0.0 - 0.9 [facility] Comment on above: Result Comment: Jaleesa ture Granulocyte Count (IG) includes promyelocytes, myelocytes and metamyelocytes but does not include bands. Percent differential counts (%) should be interpreted in the context of the absolute cell counts (cells/L). Performed By: #### C BC #### [facility] [address] [place] [address] Basophils (Bld) [#/Vol] 0.03 10*3/uL Normal 0.00 - 0.10 [facility] Comment on above: Performed By: #### C BC #### [facility] [address] [place] [address] Basophils/100 WBC (Bld) 0.4 % Normal 0.0 - 2.0 [facility] Comment on above: Performed By: #### C BC #### [facility] [address] [place] [address] Eosinophils (Bld) [#/Vol] 0.27 10*3/uL Normal 0.00 - 0.70 [facility] Comment on above: Performed By: #### C BC #### [facility] [address] [place] [address] Eosinophils/100 WBC (Bld) 3.6 % Normal 0.0 - 6.0 [facility] Comment on above: Performed By: #### C BC #### [facility] [address] [place] [address] Erythrocyte distribution width (RBC) [Ratio] 13.2 % Normal 11.5 - 14.5 [facility] Comment on above: Performed By: #### C BC #### [facility] [address] [place] [address] Hematocrit (Bld) [Volume fraction] 30.9 % Low 36.0 - 46.0 [facility] Comment on above: Performed By: #### C BC #### [facility] [address] [place] [address] Hemoglobin (Bld) [Mass/Vol] 10.4 g/dL Low 12.0 - 16.0 [facility] Comment on above: Performed By: #### C BC #### [facility] [address] [place] [address] Lymphocytes (Bld) [#/Vol] 2.41 10*3/uL Normal 1.20 - 4.80 [facility] Comment on above: Performed By: #### C BC #### [facility] [address] [place] [address] Lymphocytes/100 WBC (Bld) 31.9 % Normal 13.0 - 44.0 [facility] Comment on above: Performed By: #### C BC #### [facility] [address] [place] [address] MCHC (RBC) [Mass/Vol] 33.7 g/dL Normal 32.0 - 36.0 [facility] Comment on above: Performed By: #### C BC #### [facility] [address] [place] [address] MCV (RBC) [Entitic vol] 91 fL Normal 80 - 100 [facility] Comment on above: Performed By: #### C BC #### [facility] [address] [place] [address] Monocytes (Bld) [#/Vol] 0.49 10*3/uL Normal 0.10 - 1.00 [facility] Comment on above: Performed By: #### C BC #### [facility] [address] [place] [address] Monocytes/100 WBC (Bld) 6.5 % Normal 2.0 - 10.0 [facility] Comment on above: Performed By: #### C BC #### [facility] [address] [place] [address] Neutrophils (Bld) [#/Vol] 4.32 10*3/uL Normal 1.20 - 7.70 [facility] Comment on above: Performed By: #### C BC #### [facility] [address] [place] [address] Neutrophils/100 WBC (Bld) 57.2 % Normal 40.0 - 80.0 [facility] Comment on above: Performed By: #### C BC #### [facility] [address] [place] [address] NUCLEATED RBC 0.0 /100 WBC Normal 0.0-0.0 [facility] Comment on above: Performed By: #### C BC #### [facility] [address] [place] [address] Platelets (Bld) [#/Vol] 228 10*3/uL Normal 150 - 450 [facility] Comment on above: Performed By: #### C BC #### [facility] [address] [place] [address] RBC 3.39 x10E12/L Low 4.00 - 5.20 [facility] Comment on above: Performed By: #### C BC #### [facility] [address] [place] [address] WBC (Bld) [#/Vol] 7.6 10*3/uL Normal 4.4 - 11.3 [facility] Comment on above: Performed By: #### C BC #### [facility] [address] [place] [address] Complete Blood Count + Diffe sonjaon 09-23-2021 [...] - 11.3 MG-Gas troen terology-[facility] 6 [facility] Work Phone: Complete Blood Count + Differential 0.03 {x10E9/L} See Below MG-Gastroen terology-[place] 6 [facility] Work Phone: Comment on above: Reference Range: 0.0 0 - 0.10 Complete Blood Count + Differential 0.27 {x10E9/L} See Below MG-Gastroen terology-[facility] 6 [facility] Work Phone: Comment on above: Reference Range: 0.0 0 - 0.70 Complete Blood Count + Differential 0.49 {x10E9/L} See Below MG-Gastroen terology-[facility] Work Phone: Comment on above: Reference Range: 0.1 0 - 1.00 Complete Blood Count + Differential 2.41 {x10E9/L} See Below MG-Gastroen terology-[facility] Work Phone: Comment on above: Reference Range: 1.2 0 - 4.80 Complete Blood Count + Differential 4.32 {x10E9/L} See Below MG-Gastroen terology-[facility] Work Phone: Comment on above: Reference Range: 1.2 0 - 7.70 Complete Blood Count + Differential 3.6 % 0.0 - 6.0 MG-Gastroen terology-[facility] 6 [facility] Work Phone: Complete Blood Count + Differential 0.4 % 0.0 - 0.9 MG-Gastroen terology-[facility] 6 [facility] Work Phone: Comment on above: Immature Granulocyte Count (IG) includes promyelocytes, myelocytes and metamyelocytes but does not include bands. Percent differential counts (%) should be interpreted in the context of the absolute cell counts (cells/L). Complete Blood Count + Differential 0.0 {/100_WBC} 0.0-0.0 MG-Gastroen terology-[facility] [place] 6 [facility] Work Phone: Laboratory - Hematology and Cell countson 09-23-2021 Erythrocyte distribution width (RBC) [Ratio] 13.1 % See Below MG-Gastroen terology-[facility] Work Phone: Comment on above: Reference Range: 11. 5 - 14.5 Hematocrit (Bld) [Volume fraction] 30.5 % below low threshold See Below MG-Gastroen terology-[facility] Work Phone: Comment on above: Reference Range: 36. 0 - 46.0 Hemoglobin (Bld) [Mass/Vol] 9.9 g/dL below low threshold See Below MG-Gastroen terology-[facility] Work Phone: Comment on above: Reference Range: 12. 0 - 16.0 MCHC (RBC) [Mass/Vol] 32.5 g/dL See Below MG- Gastroen terology-[facility] Work Phone: Comment on above: Reference Range: 32. 0 - 36.0 MCV (RBC) [Entitic vol] 92 fL 80 - 100 [facility] Work Phone: Platelets (Bld) [#/Vol] 244 10*3/uL 150 - 450 [facility] Work Phone: RBC (Bld) [#/Vol] 3.33 {x10E12/L} below low threshold See Below MG-Gastroen terology-[facility] Work Phone: Comment on above: Reference Range: 4.0 0 - 5.20 WBC (Bld) [#/Vol] 8.6 10*3/uL 4.4 - 11.3 [facility] Work Phone: MAGNESIUMon 09-23-2021 Magnesium [Mass/Vol] 1.68 mg/dL Normal 1.60 - 2.40 [facility] Comment on above: Performed By: #### C BC #### [facility] [address] [place] [address] Magnesium, Serumon Magnesium [Mass/Vol] 1.68 mg/dL See Below MG-G astroen terology-[place] [place]well 6 I Work Phone: Comment on above: Reference Range: 1.6 0 - 2.40 No Panel Informationon 09-23 0.0 {/100_WBC} 0.0-0.0 MG-Gastroe n terology-[facility] [place]well 6 I Work Phone: Order Reconciliationon 09-23 Order Reconciliation Page 1 Discharge Reconciliation Document Reconciliation Type: Discharge requested on behalf of Emma Izaguirre (Advanced Practice Nurse) done by Emma Izaguirre ([facility]) Discharge - Partial Reconciliation: 23-Sep-2021 13:21 by: Emma Izaguirre ([facility]) Discharge - Partial Reconciliation: 24-Sep-2021 10:12 by: Emma Izaguirre ([facility]) Discharge - Partial Reconciliation: 30-Sep-2021 14:12 by: Concetta Shi ([facility]) Discharge - Partial Reconciliation: 30-Sep-2021 14:14 by: Concetta Shi ([facility]) Discharge - Reconciliation: 30-Sep-2021 14:24 by: Concetta Shi ([facility]) Discharge - Reset to Incomplete: 02-Oct-2021 15:36 by: Emma Izaguirre ([facility]) Discharge - Reconciliation: 02-Oct-2021 15:40 by: Emma Izaguirre ([facility]) Discharge - Reset to Incomplete: 02-Oct-2021 15:57 by: Emma Izaguirre ([facility]) Discharge - Reconciliation: 02-Oct-2021 15:58 by: Emma Izaguirre ([facility]) Home Medications EnteredHOME MEDICATIONS AT DISCHARGE [...] EnteredInError diclofenac topical 1% topical gel 1 carlene topical prn 12-Dec-2020 09:55 Discontinued; Discontinue from [...] not required (more content not included)... Normal [facility] PATH REVIEW-IMMUNOHEMATOLOGY on 01-19-2022 PATH REV-IMMUNOHEMOTOL R.SEA Normal [facility] Comment on above: Result Comment: [...] PATIENT. Performed By: #### A FPA3 #### [facility] [address] [place] [address] RENAL FUNCTION PANELon 09-23 Albumin [Mass/Vol] 2.7 g/dL Low 3.4 - 5.0 [facility] Comment on above: Performed By: #### V FPA3 #### [facility] [address] [place] [address] Anion gap [Moles/Vol] 10 mmol/L Normal 10 - 20 [facility] Comment on above: Performed By: #### V FPA3 #### [facility] [address] [place] [address] Calcium [Mass/Vol] 7.9 mg/dL Low 8.6 - 10.6 [facility] Comment on above: Performed By: #### V FPA3 #### [facility] [address] [place] [address] Chloride [Moles/Vol] 108 mmol/L High 98 - 107 [facility] Comment on above: Performed By: #### V FPA3 #### [facility] [address] [place] [address] Creatinine [Mass/Vol] 0.39 mg/dL Low 0.50 - 1.05 [facility] Comment on above: Performed By: #### V FPA3 #### [facility] [address] [place] [address] eGFR FEMALE >90 Normal >90 [facility] Comment on above: Result Comment: CALC ULATIONS OF ESTIMATED GFR ARE PERFORMED USING THE 2020 CKD-EPI STUDY REFIT EQUATION WITHOUT THE RACE VARIABLE FOR THE IDMS-TRACEABLE CREATININE METHODS. https://jasn.asnjournals.org/content/ASN.492 8458638 Performed By: #### V FPA3 #### [facility] [address] [place] [address] Glucose [Mass/Vol] 87 mg/dL Normal 74 - 99 [facility] Comment on above: Performed By: #### V FPA3 #### [facility] [address] [place] [address] HCO3 (Bld) [Moles/Vol] 29 mmol/L Normal 21 - 32 [facility] Comment on above: Performed By: #### V FPA3 #### [facility] [address] [place] [address] Phosphate [Mass/Vol] 2.7 mg/dL Normal 2.5 - 4.9 [facility] Comment on above: Result Comment: The performance characteristics of phosphorus testing in heparinized plasma have been validated by the individual laboratory site where testing is performed. Testing on heparinized plasma is not approved by the FDA; however, such approval is not necessary. Performed By: #### V FPA3 #### [facility] [address] [place] [address] Potassium [Moles/Vol] 3.6 mmol/L Normal 3.5 - 5.3 [facility] Comment on above: Performed By: #### V FPA3 #### [facility] [address] [place] [address] Sodium [Moles/Vol] 143 mmol/L Normal 136 - 145 [facility] Comment on above: Performed By: #### V FPA3 #### [facility] [address] [place] [address] Urea nitrogen [Mass/Vol] 9 mg/dL Normal 6 - 23 [facility] Comment on above: Performed By: #### V FPA3 #### [facility] [address] [place] [address] Rehab Note-individual therap gaurang 09-23-2021 Rehab Note-individual therapy Rehab: Info: Disciplinephysical therapist Mode of Treatmentphysical therapy; individual therapy Time IN14:50 Time OUT15:29 Total Treatment [id number] Patient in ... at end of sessionbed, [...] sit to supine; rolling right Roll Left [place] (Bed Mobility)verbal cues; maximum assist (25% patient effort); 1 person assist Roll Right [place] (Bed Mobility)maximum assist (25% patient effort); verbal cues; 1 person assist Scoot/Bridge [place] (Bed Mobility)verbal cues; maximum assist (25% patient effort); 2 person assist; boost HOB Sskibo-vc-Ooi [place] (Bed Mobility)verbal cues; maximum assist (25% patient effort); 1 person assist Alb-yb-Feebnj [place] (Bed Mobility)set up; verbal cues; maximum assist (25% patient effort); 1 person assist Assistive Device (Bed Mobility)bed rails; draw sheet Transfer Assessment/Interventionss it to stand transfer; stand to sit transfer Sit-Stand [place] (Transfers)2 person assist; moderate assist (50% patient effort) Sit-Stand Assistive Device (Transfers)B arm-in-arm assist Stand-Sit [place] (Transfers)2 person assist; moderate assist (50% patient [...] 23-Sep-2021 15:50 by Boone Broussard (PT) Normal [facility] Renal Function Panelon 09-23 Albumin [...] RACE VARIABLE FOR THE IDMS-TRACEABLE CREATININE METHODS.https://jasn.asnjournals.org/content/ /ASN.8779548300 ANTIBODY IDENT.on 09-22-2021 ANTIBODY IDENT. Anti-E Normal [facility] Comment on above: Performed By: #### V FPA3 #### [facility] [address] [place] [address] CBCon 09-22-2021 Erythrocyte distribution width (RBC) [Ratio] 13.2 % Normal 11.5 - 14.5 [facility] Comment on above: Performed By: #### V FPA3 #### [facility] [address] [place] [address] Hematocrit (Bld) [Volume fraction] 30.6 % Low 36.0 - 46.0 [facility] Comment on above: Performed By: #### V FPA3 #### [facility] [address] [place] [address] Hemoglobin (Bld) [Mass/Vol] 10.2 g/dL Low 12.0 - 16.0 [facility] Comment on above: Performed By: #### V FPA3 #### [facility] [address] [place] [address] MCHC (RBC) [Mass/Vol] 33.3 g/dL Normal 32.0 - 36.0 [facility] Comment on above: Performed By: #### V FPA3 #### [facility] [address] [place] [address] MCV (RBC) [Entitic vol] 91 fL Normal 80 - 100 [facility] Comment on above: Performed By: #### V FPA3 #### [facility] [address] [place] [address] NUCLEATED RBC 0.0 /100 WBC Normal 0.0-0.0 [facility] Comment on above: Performed By: #### V FPA3 #### [facility] [address] [place] [address] Platelets (Bld) [#/Vol] 215 10*3/uL Normal 150 - 450 [facility] Comment on above: Performed By: #### V FPA3 #### [facility] [address] [place] [address] RBC 3.37 x10E12/L Low 4.00 - 5.20 [facility] Comment on above: Performed By: #### V FPA3 #### [facility] [address] [place] [address] WBC (Bld) [#/Vol] 9.6 10*3/uL Normal 4.4 - 11.3 [facility] Comment on above: Performed By: #### V FPA3 #### [facility] [address] [place] [address] CBC AND DIFFERENTIALon 09-22 % AUTOMATED IMMATURE GRAN 0.4 % Normal 0.0 - 0.9 [facility] Comment on above: Result Comment: Jaleesa ture Granulocyte Count (IG) includes promyelocytes, myelocytes and metamyelocytes but does not include bands. Percent differential counts (%) should be interpreted in the context of the absolute cell counts (cells/L). Performed By: #### C BCDF ####[id number] [place] [address] Basophils (Bld) [#/Vol] 0.02 10*3/uL Normal 0.00 - 0.10 [facility] Comment on above: Performed By: #### C BCDF ####[id number] [place] [address] Basophils/100 WBC (Bld) 0.2 % Normal 0.0 - 2.0 [facility] Comment on above: Performed By: #### C BCDF ####[id number] [place] [address] Eosinophils (Bld) [#/Vol] 0.04 10*3/uL Normal 0.00 - 0.70 [facility] Comment on above: Performed By: #### C BCDF ####[id number] [place] [address] Eosinophils/100 WBC (Bld) 0.4 % Normal 0.0 - 6.0 [facility] Comment on above: Performed By: #### C BCDF ####[id number] [place] [address] Erythrocyte distribution width (RBC) [Ratio] 13.2 % Normal 11.5 - 14.5 [facility] Comment on above: Performed By: #### C BCDF ####[id number] [place] [address] Hematocrit (Bld) [Volume fraction] 30.6 % Low 36.0 - 46.0 [facility] Comment on above: Performed By: #### C BCDF ####[id number] [place] [address] Hemoglobin (Bld) [Mass/Vol] 10.3 g/dL Low 12.0 - 16.0 [facility] Comment on above: Performed By: #### C BCDF ####[id number] [place] [address] Lymphocytes (Bld) [#/Vol] 2.19 10*3/uL Normal 1.20 - 4.80 [facility] Comment on above: Performed By: #### C BCDF ####[id number] [place] [address] Lymphocytes/100 WBC (Bld) 19.9 % Normal 13.0 - 44.0 [facility] Comment on above: Performed By: #### C BCDF ####[id number] [place] [address] MCHC (RBC) [Mass/Vol] 33.7 g/dL Normal 32.0 - 36.0 [facility] Comment on above: Performed By: #### C BCDF ####[id number] [place] [address] MCV (RBC) [Entitic vol] 90 fL Normal 80 - 100 [facility] Comment on above: Performed By: #### C BCDF ####[id number] [place] [address] Monocytes (Bld) [#/Vol] 0.71 10*3/uL Normal 0.10 - 1.00 [facility] Comment on above: Performed By: #### C BCDF ####[id number] [place] [address] Monocytes/100 WBC (Bld) 6.5 % Normal 2.0 - 10.0 [facility] Comment on above: Performed By: #### C BCDF ####[id number] [place] [address] Neutrophils (Bld) [#/Vol] 7.98 10*3/uL High 1.20 - 7.70 [facility] Comment on above: Performed By: #### C BCDF ####[id number] [place] [address] Neutrophils/100 WBC (Bld) 72.6 % Normal 40.0 - 80.0 [facility] Comment on above: Performed By: #### C BCDF ####[id number] [place] [address] NUCLEATED RBC 0.0 /100 WBC Normal 0.0-0.0 [facility] Comment on above: Performed By: #### C BCDF ####[id number] [place] [address] Platelets (Bld) [#/Vol] 242 10*3/uL Normal 150 - 450 [facility] Comment on above: Performed By: #### C BCDF ####[id number] [place] [address] RBC 3.39 x10E12/L Low 4.00 - 5.20 [facility] Comment on above: Performed By: #### C BCDF ####[id number] [place] [address] WBC (Bld) [#/Vol] 11.0 10*3/uL Normal 4.4 - 11.3 [facility] Comment on above: Performed By: #### C BCDF ####[id number] [place] [address] Complete Blood Count + Diffe rentialon 09-22-2021 Basophils/100 WBC (Bld) 0.2 % 0.0 - 2.0 M G-Gastroen terology-[facility] 6 I Work Phone: Erythrocyte distribution width [...] 10*3/uL 4.4 - 11.3 MG-Ga stroen terology-[facility] 6 I Work Phone: Complete Blood Count [...] + Differential 0.0 {/100_WBC} 0.0-0.0 MG-Gastroen terology-[facility] Work Phone: Complete Blood Count + Differential 0.02 {x10E9/L} See Below MG-Gastroen terology-[facility] Work Phone: Comment on above: Reference Range: 0.0 0 - 0.10 Complete Blood Count + Differential 0.04 {x10E9/L} See Below MG-Gastroen terology-[facility] ell 6 [facility] Work Phone: Comment on above: Reference Range: 0.0 0 - 0.70 Complete Blood Count + Differential 0.71 {x10E9/L} See Below MG-Gastroen terology-[place] ell 6 [facility] Work Phone: Comment on above: Reference Range: 0.1 0 - 1.00 Complete Blood Count + Differential 2.19 {x10E9/L} See Below MG-Gastroen terology-[place] ell 6 [facility] Work Phone: Comment on above: Reference Range: 1.2 0 - 4.80 Complete Blood Count + Differential 7.98 {x10E9/L} above high threshold See Below MG-Gastroen terology-[facility] [facility] Work Phone: Comment on above: Reference Range: 1.2 0 - 7.70 Cult, Urineon 09-22-2021 Bacteria identified Cx Nom (U) MG-Gastroen terology-Rosendo moura 6 [facility] Work Phone: Daily Progress Note - Psychi atryon 09-22-2021 Daily Progress Note - Psychiatry Subjective Data: MORALES LEE is a 46 year old Female who is Hospital Day # 8. Pt seen lying in bed this morning, with at bedside. She is currently on FISH WARDEN for pain, and reports being tired this [...] this time. Objective: Objective Information: T PRBPSpO2 Value36.5504104/5792% Date/Time09/22 0:001/18 8:00118 8:001/18 8:001/18 8:00 Range(36.3C - 36.8C ) [...] Fair. Medications: Continuous Medications ------- 1. HYDROmorphone FISH WARDEN 25 mg/ NaCL 0.9% 50 mL: 2.6 mg/hr IV FISH WARDEN 2. Sodium Chloride 0.9% Infusion: 1000 mL [...] from Suboxone (more content not included)... Normal [facility] Daily Progress Note-Neurosur jinny 09-22-2021 Daily Progress Note-Neurosurgery Service: Neurosurgery Subjective Data: MORALES LEE is a 46 year old Female who is Hospital Day # 8 and POD #1 for posterior L4-L5 decompression;posterior L4-L5 arthrodesis. Objective Data: Objective Information: T PRBPSpO2 [id number]/5895% Date/Time09/22 0:00118 0:00118 0:00118 0:00118 0:00 Range(36.2C - 36.8C ) (82 - 109 ) (12 - 20 ) (85 - 132 )/ (49 - 89 ) (94% - 100% ) As of 21-Sep-2021 17:00:00, patient is on 4 L/min of oxygen via nasal cannula. Pain reported at 09/21 16:33: 5 = Moderate ---- Intake and Output ----- Mn/Dy/Year TimeIntakeOutputNet Sep 20, 2021 10:00 [id number] Sep 20, 2021 6:00 [id number] The Intake and Output Totals for the last 24 hours are: IntakeOutputNet [id number] Physical Exam by System: Neurological: A&Ox3 RUE [...] L4 stenosis 09/21 s/p L4/5 lami, accessory bobby placement Plan: tele Chronic pain recs- intra-op ketamine, meloxicam post-op, FISH WARDEN until good PT eval, Suboxone as OP COWS psych recs alvares for retention SCD's, H Attestation: Note Completion: I am a: Resident/Fellow [...] the note. I personally evaluated the patient [id number] Electronic Signatures: Fidel Maciel (Resident)) (Signed 22-Sep-2021 00:35) Authored: Service, Subjective Data, Objective Data, Assessment and Plan, Note Completion Lex Frederick) (Signed 22-Sep-2021 10:31) Authored: Note Completion Co-Signer: Service, Subjective Data, Objective Data, Assessment and Plan, Note Completion Last Updated: 22-Sep-2021 10:31 by Lex Frederick) Normal [facility] Discharge [id number] Discharge Profile2 Discharge Orders: Anticipated Discharge Date: Anticipated Discharge [id number] Problem List: Additional Dx: Spinal stenosis of [...] posterolateral arthrodesis;4. Extension of instrumentation with multiple bobby construct and side connectors Hypertension (HTN): Past [...] Please call your Neurosurgeon's office (Dr. Frederick [phone]) if you have any questions. -If you [...] or twist. Instead, bend at knees to cook pickled meat objects. Wound Care: Inspect your incision daily [...] taking Acetamin (more content not included)... Normal [facility] LACTATEon 09-22-2021 Lactate [Moles/Vol] 0.8 mmol/L Normal 0.4 - 2.0 [facility] Comment on above: Result Comment: Trina puncture immediately after or during the administration of Metamizole may lead to falsely low results. Testing should be performed immediately prior to Metamizole dosing. Performed By: #### C BC #### [facility] [address] [place] [address] Laboratory - Hematology and Cell countson 09-22-2021 Erythrocyte distribution width (RBC) [Ratio] 13.2 % See Below MG-Gastroen terology-[facility] Work Phone: Comment on above: Reference Range: 11. 5 - 14.5 Hematocrit (Bld) [Volume fraction] 30.6 % below low threshold See Below MG-Gastroen terology-[facility] 6 [facility] Work Phone: Comment on above: Reference [...] v2-occupational therapy - co-eval with PT to m Rehab: Info: Mode of Treatmentoccupational therapy; co-eval with PT to maximize pt's mobility and safety. Time IN10:50 Time OUT11:40 Total Treatment [id number] Patient in ... at end of sessionbed, 3 railings up; alarm on Communicated with ... at end of sessionbedside nurse Patient Effortgood Symptoms Noted During/After Treatmentfatigue; increased pain Patient Profile Reviewedyes Onset of Illness/Injury or Date of [id number] Reason for Referral-09/18/21: s/p exploration of spinal fusion, reduction of L4/5 dislocation, L5-pelvis instrumented fusion with L4-pelvis posterolateral arthrodesis, extension of prior T6-L4 instrumentation with multiple bobby construct and side connectors. -09/21/21: s/p posterior [...] EOB sitting. Pertinent History of Current Functional [id number] y/o with hx of HTN, C6-7 ACDF, [...] TubesIV; triple lumen; telemetry; urethral catheter indwelling; FISH WARDEN pump, DAVOL drain, wound vac O2 Deliverynasal cannula; 4L Pre Treatment Patient Positionsupine Pre Treatment Blood Pressure [id number] mmHg Pre Treatment Diastolic (mm Hg)46 mmHg Pre Treatment Heart Rate (beats/min)67 Pre Treatment Respiratory Rate (breaths/min)19 Pre Treatment SpO2 (%)96 % Pre Treatment Oxygen Deliverysupplemental O2 Pre Treatment CommentsMAP 56 During Treatment Patient Positionsitting During Treatment Blood Pressure [id number] mmHg During Treatment Diastolic (mm Hg)77 mmHg [...] to sit; sit to supine Roll Left [place] (Bed Mobility)set up; verbal cues; 2 person assist; Pt required assist to bend BLE at (more content not included)... Normal [facility] PATH REVIEW-IMMUNOHEMATOLOGY on 09-22-2021 PATH REV-IMMUNOHEMOTOL ZURDO Normal [facility] Comment on above: Result Comment: [...] PATIENT. Performed By: #### C BC #### [facility] [address] [place] [address] PT Evaluation [id number] t - co-treatment with OT to maxion 09-22-2021 PT Evaluation [id number] - co-treatment with OT to maxi Rehab: Info: Mode of Treatmentphysical therapy; co-treatment; co-treatment with OT to maximize safety, mobility and ADL participation Time IN10:50 Time OUT11:40 Total Treatment [id number] Patient in ... at end of sessionbed, 3 railings up; alarm on Communicated with ... at end of sessionbedside nurse Patient Effortgood Symptoms Noted During/After Treatmentfatigue; increased pain Patient Profile Reviewedyes Onset of Illness/Injury or Date of [id number] Reason for Referral-09/18/21: s/p exploration of spinal fusion, reduction of L4/5 dislocation, L5-pelvis instrumented fusion with L4-pelvis posterolateral arthrodesis, extension of prior T6-L4 instrumentation with multiple bobby construct and side connectors. -09/21/21: s/p posterior [...] TubesIV; triple lumen; telemetry; urethral catheter indwelling; FISH WARDEN pump, DAVOL drain, wound vac O2 Deliverynasal cannula; 4L Pre Treatment Patient Positionsupine Pre Treatment Blood Pressure Mgdncsnz05 mmHg Pre Treatment Diastolic (mm Hg)46 mmHg Pre Treatment Heart Rate (beats/min)67 Pre Treatment SpO2 (%)96 % Pre Treatment Oxygen Deliverysupplemental O2 During Treatment Patient Positionsitting During Treatment Blood Pressure Xbkhlvta02 mmHg During Treatment Diastolic (mm Hg)77 mmHg [...] sit to supine; rolling right Roll Left [place] (Bed Mobility)verbal cues; 2 person assist; Pt required assist to bend BLE at knees and to initiate turn at shoulders and hips, verbal cues for grasp on bed rail, technique, direction follow, and encouragement.; maximum assist (25% patient effort) Roll Right [place] (Bed Mobility)2 person assist; maximum assist (25% patient effort); verbal cues Scoot/Bridge [place] (Bed Mobility)verbal cues; maximum assist (25% patient effort); 2 person assist; boost HOB Zyynfp-re-Jed [place] (Bed Mobility)verbal cues; maximum assist (25% patient effort); 1 person assist Lms-hw-Bkysso [place] (Bed Mobility)set up; verbal cues; maximum assist (25% patient effort); 1 person assist Assistive Device (Bed Mobility)bed rails; draw sheet Impairments Impacting Function (Mobility)balance; cognition; endurance/activity tolerance; pain; strength; postural/trunk control; motor control Motor: Sitting, Static (Balance)SBA Sitting, Dynamic (Balance)CGA Rza-ki-Utnaw (Balance)MADELIN this visit. Pt hypotensive Sensory: Pre-Treatment Pain Rating7/10 Post-Treatment Pain Rating7/10 Comment, Pre/Post Treatment PainPt reported pain throughout buttocks and back, utilized FISH WARDEN pump as needed. Pain LimitationFunctional mobility limited due pain; ADLs/IADLs limited due to pain; Participation limited by pain; RN or team was notified of limitations due to p (more content not included)... Normal [facility] RENAL FUNCTION PANELon 09-22 Albumin [Mass/Vol] 2.7 g/dL Low 3.4 - 5.0 [facility] Comment on above: Performed By: #### C BC #### [facility] [address] [place] [address] Anion gap [Moles/Vol] 10 mmol/L Normal - 20 [facility] Comment on above: Performed By: #### C BC #### [facility] [address] [place] [address] Calcium [Mass/Vol] 7.8 mg/dL Low 8.6 - 10.6 [facility] Comment on above: Performed By: #### C BC #### [facility] [address] [place] [address] Chloride [Moles/Vol] 105 mmol/L Normal 98 - 107 [facility] Comment on above: Performed By: #### C BC #### [facility] [address] [place] [address] Creatinine [Mass/Vol] 0.49 mg/dL Low 0.50 - 1.05 [facility] Comment on above: Performed By: #### C BC #### [facility] [address] [place] [address] eGFR FEMALE >90 Normal >90 [facility] Comment on above: Result Comment: CALC ULATIONS OF ESTIMATED GFR ARE PERFORMED USING THE 2020 CKD-EPI STUDY REFIT EQUATION WITHOUT THE RACE VARIABLE FOR THE IDMS-TRACEABLE CREATININE METHODS. https://jasn.asnjournals.org/content/early//ASN.083 4320318 Performed By: #### C BC #### [facility] [address] [place] [address] Glucose [Mass/Vol] 93 mg/dL Normal 74 - 99 [facility] Comment on above: Performed By: #### C BC #### [facility] [address] [place] [address] HCO3 (Bld) [Moles/Vol] 29 mmol/L Normal 21 - 32 [facility] Comment on above: Performed By: #### C BC #### [facility] [address] [place] [address] Phosphate [Mass/Vol] 2.4 mg/dL Low 2.5 - 4.9 [facility] Comment on above: Result Comment: The performance characteristics of phosphorus testing in heparinized plasma have been validated by the individual laboratory site where testing is performed. Testing on heparinized plasma is not approved by the FDA; however, such approval is not necessary. Performed By: #### C BC #### [facility] [address] [place] [address] Potassium [Moles/Vol] 4.3 mmol/L Normal 3.5 - 5.3 [facility] Comment on above: Performed By: #### C BC #### [facility] [address] [place] [address] Sodium [Moles/Vol] 140 mmol/L Normal 136 - 145 [facility] Comment on above: Performed By: #### C BC #### [facility] [address] [place] [address] Urea nitrogen [Mass/Vol] 9 mg/dL Normal 6 - 23 [facility] Comment on above: Performed By: #### C BC #### [facility] [address] [place] [address] Renal Function Panelon 09-22 Albumin BCP dye [...] 2.5 - 4.9 [facility]astro[facility] Work Phone: Comment on above: The [...] >90 >90 [facility]-G astroen terology-[facility]endo [facility] Work Phone: Comment on above: CALCULATIONS OF IVY MATED GFR ARE PERFORMED USING THE 2020 CKD-EPI STUDY REFIT EQUATION WITHOUT THE RACE VARIABLE FOR THE IDMS-TRACEABLE CREATININE METHODS.https://jasn.asnjournals.org/content/early /ASN.3991014717 UA MICROSCOPICon 09-22-2021 RBC 6 /HPF Abnormal 0-5 [facility] Comment on above: Performed By: #### C BC #### [facility] [address] [place] [address] SQUAMOUS EPITH. CELLS 1 /HPF Normal [facility] Comment on above: Performed By: #### C BC #### [facility] [address] [place] [address] WBC 8 /HPF Abnormal 0-5 [facility] Comment on above: Performed By: #### C BC #### [facility] [address] [place] [address] URINALYSIS WITH CULTURE IF I NDICATEDon 09-22-2021 Appearance (U) CLEAR Normal CLEAR [facility] Comment on above: Performed By: #### U ARFX ####[id number] [place] [address] Bilirubin Ql (U) Negative Normal NEGATIVE [facility] Comment on above: Performed By: #### U ARFX ####[id number] [place] [address] Color (U) MIRANDA Normal STRAW,YELL OW [facility] Comment on above: Performed By: #### U ARFX ####[id number] [place] [address] Glucose Ql (U) Negative Normal NEGATIVE [facility] Comment on above: Performed By: #### U ARFX ####[id number] [place] [address] Hemoglobin Ql (U) Negative Normal NEGATIVE [facility] Comment on above: Performed By: #### U ARFX ####[id number] [place] [address] Ketones Ql (U) 20 (1+) Abnormal NEGATIVE [facility] Comment on above: Performed By: #### U ARFX ####[id number] [place] [address] Leukocyte esterase Test strip Ql (U) Negative Normal NEGATIVE [facility] Comment on above: Performed By: #### U ARFX ####[id number] [place] [address] Nitrite Ql (U) Negative Normal NEGATIVE [facility] Comment on above: Performed By: #### U ARFX ####[id number] [place] [address] pH (U) 5.0 [pH] Normal 5.0 - 8.0 [facility] Comment on above: Performed By: #### U ARFX ####[id number] [place] [address] Protein Ql (U) 30 (1+) Abnormal NEGATIVE [facility] Comment on above: Performed By: #### U ARFX ####[id number] [place] [address] Specific gravity (U) [Rel density] 1.040 High 1.005 - 1.035 [facility] Comment on above: Performed By: #### U ARFX ####[id number] [address] Urobilinogen (U) [Mass/Vol] 2.0 mg/dL High 0.0 - 1.9 [facility] Comment on above: Result Comment: [...] positive urobilinogen. Performed By: #### U ARFX ####[id number] [place] [address] Lab Specimen Source Normal [facility] Comment on above: Performed By: #### U ARFX ####[id number] [place] [address] Performed By: #### C BC #### [facility] [address] [place] [address] Color (U) MIRANDA See Below MG-Gastroen terology-Rosendo [...] CULTURE,BACTERIALon URINE CULTURE,BACTERIAL PATIENT: Fay LEE LOCATION: [place] [address] BILL#: [id number] : 71 AGE: SEX: F ORDERED BY: EMMA IZAGUIRRE SOURCE: URINE COLLECTED: 09/22/21 12:59 ANTIBIOTICS AT [facility].: RECEIVED : 09/22/21 14:59 SITE: R E S U L T S URINE CULTURE,BACTERIAL FINAL 09/23/21 09:04 NO SIGNIFICANT GROWTH. Normal [facility] Comment on above: Performed By: #### C BC #### [facility] [address] [place] [address] Urinalysis, Microscopicon Urinalysis, Microscopic 1 {/HPF} M [facility]astro[facility]ology-[facility] Work Phone: Urinalysis, Microscopic 6 {/HPF} Abnormal 0-5 [facility] Work Phone: Urinalysis, Microscopic 8 {/HPF} Abnormal 0-5 M G-Gastroen terology-[facility] Work Phone: Comment on above: SOURCE: CBCon 09-21-2021 Erythrocyte distribution width (RBC) [Ratio] 13.1 % Normal 11.5 - 14.5 [facility] Comment on above: Performed By: #### R ENAL #### [facility] [address] [place] [address] Hematocrit (Bld) [Volume fraction] 34.5 % Low 36.0 - 46.0 [facility] Comment on above: Performed By: #### R ENAL #### [facility] [address] [place] [address] Hemoglobin (Bld) [Mass/Vol] 11.4 g/dL Low 12.0 - 16.0 [facility] Comment on above: Performed By: #### R ENAL #### [facility] [address] [place] [address] MCHC (RBC) [Mass/Vol] 33.0 g/dL Normal 32.0 - 36.0 [facility] Comment on above: Performed By: #### R ENAL #### [facility] [address] [place] [address] MCV (RBC) [Entitic vol] 91 fL Normal 80 - 100 [facility] Comment on above: Performed By: #### R ENAL #### [facility] [address] [place] [address] NUCLEATED RBC 0.0 /100 WBC Normal 0.0-0.0 [facility] Comment on above: Performed By: #### R ENAL #### [facility] [address] [place] [address] Platelets (Bld) [#/Vol] 269 10*3/uL Normal 150 - 450 [facility] Comment on above: Performed By: #### R ENAL #### [facility] [address] [place] [address] RBC 3.81 x10E12/L Low 4.00 - 5.20 [facility] Comment on above: Performed By: #### R ENAL #### [facility] [address] [place] [address] WBC (Bld) [#/Vol] 14.6 10*3/uL High 4.4 - 11.3 [facility] Comment on above: Performed By: #### R ENAL #### [facility] [address] [place] [address] Erythrocyte distribution width (RBC) [Ratio] 13.2 % Normal 11.5 - 14.5 [facility] Comment on above: Performed By: #### R ENAL #### [facility] [address] [place] [address] Hematocrit (Bld) [Volume fraction] 35.8 % Low 36.0 - 46.0 [facility] Comment on above: Performed By: #### R ENAL #### [facility] [address] [place] [address] Hemoglobin (Bld) [Mass/Vol] 11.9 g/dL Low 12.0 - 16.0 [facility] Comment on above: Performed By: #### R ENAL #### [facility] [address] [place] [address] MCHC (RBC) [Mass/Vol] 33.2 g/dL Normal 32.0 - 36.0 [facility] Comment on above: Performed By: #### R ENAL #### [facility] [address] [place] [address] MCV (RBC) [Entitic vol] 91 fL Normal 80 - 100 [facility] Comment on above: Performed By: #### R ENAL #### [facility] [address] [place] [address] NUCLEATED RBC 0.0 /100 WBC Normal 0.0-0.0 [facility] Comment on above: Performed By: #### R ENAL #### [facility] [address] [place] [address] Platelets (Bld) [#/Vol] 215 10*3/uL Normal 150 - 450 [facility] Comment on above: Performed By: #### R ENAL #### [facility] [address] [place] [address] RBC 3.93 x10E12/L Low 4.00 - 5.20 [facility] Comment on above: Performed By: #### R ENAL #### [facility] [address] [place] [address] WBC (Bld) [#/Vol] 14.8 10*3/uL High 4.4 - 11.3 [facility] Comment on above: Performed By: #### R ENAL #### [facility] [address] [place] [address] Daily Progress Note-Neurosur jinny 09-21-2021 Daily Progress Note-Neurosurgery Service: Neurosurgery Subjective Data: MORALES LEE is a 46 year old Female who is Hospital Day # 7 and POD #3 for 1. Exploration of spinal fusion;2. Reduction of L4/5 dislocation;2. L5-pelvis instrumented fusion with posterolateral arthrodesis;4. Extension of instrumentation with multiple bobby construct and side connectors. 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 Normal [facility] Laboratory - Blood bankon ABO group Nom (Bld) O [facility] Work Phone: Blood group antibody investigation (P/RBC) [Interp] Anti-E MG-Gastroen E-Box - [facility] Work Phone: Blood group antibody screen [...] - 100 M G-Gastroen terology-[facility] Work Phone: Platelets [...] lumbar spine September 18, 2021 ACCESSION NUMBER(S): [id number]; [id number] ORDERING CLINICIAN: DEVANTE STAKRS TECHNIQUE: Sagittal axial T2 weighted images of [...] Electronically signed by: NATALIA WALL, DO Normal [facility] NR MRI T-SPINE WOon 09-21-19 22 NR MRI T-SPINE WO Patient Name: MORALES LEE STUDY: MRI T-SPINE WO; MRI L-SPINE WO; 09/20/2021 10:40 pm; 09/20/2021 10:42 pm INDICATION: postop foot weakness, Lie Flat: Yes, Pre Med: No . COMPARISON: MRI December 24, [address] of the lumbar spine September 18, 2021 ACCESSION NUMBER(S): [id number]; [id number] ORDERING CLINICIAN: DEVANTE STARKS TECHNIQUE: Sagittal axial [...] Electronically signed by: NATALIA WALL, DO Normal [facility] No Panel Informationon 09-21 0.0 [...] Preop Checklist Preop Checklist: Preop Checklist: Arrival [id number] Arrival Time11:00 Procedure Typere-exploration of spine Temperature C36.2 degrees C Temperature F97.1 degrees F Heart Rate91 beats per minute Respiratory Rate18 breath per minute Blood Pressure Rauvjpgs226 mm/Hg Blood Pressure Wxlbeance43 mm/Hg COVID 19 Results in Last 7 [...] 21-Sep-2021 11:17 by Linh Buchanan (RN) Normal [facility] REQUEST-LEUKOREDUCED RED ANJU LSon 09-21-2021 REQUEST-LEUKOREDUCED RED CELLS ORDER RECD Normal [facility] Comment on above: Performed By: #### A FPA3 #### [facility] [address] [place] [id number] TYPE + SCREENon 09-21-2021 ABO TYPE O Normal [facility] Comment on above: Performed By: #### A FPA3 #### [facility] [address] [place] [address] RH TYPE Positive Normal [facility] Comment on above: Performed By: #### A FPA3 #### [facility] [address] [place] [address] ABO TYPE Canceled Normal [facility] Comment on above: Order Comment: VENECIA ESPINO, 09/21/2021 05:08TEST TYPE + SCREEN WAS CANCELLED, 09/21/2021 05:06 NO PHLEB ID ON TUBE. Result Comment: CALL ED MERA ESPINO, 09/21/2021 05:08 Performed By: #### A FPA3 #### [facility] [address] [place] [address] RH TYPE Canceled Normal [facility] Comment on above: Order Comment: VENECIA ESPINO, 09/21/2021 05:08TEST TYPE + SCREEN WAS CANCELLED, 09/21/2021 05:06 NO PHLEB ID ON TUBE. Result Comment: CALL ED MERA ESPINO, 09/21/2021 05:08 Performed By: #### A FPA3 #### [facility] [address] [place] [address] CBCon 09-20-2021 Erythrocyte distribution width (RBC) [Ratio] 13.2 % Normal 11.5 - 14.5 [facility] Comment on above: Performed By: #### C BC #### [facility] [address] [place] [address] Hematocrit (Bld) [Volume fraction] 30.8 % Low 36.0 - 46.0 [facility] Comment on above: Performed By: #### C BC #### [facility] [address] [place] [address] Hemoglobin (Bld) [Mass/Vol] 9.8 g/dL Low 12.0 - 16.0 [facility] Comment on above: Performed By: #### C BC #### [facility] [address] [place] [address] MCHC (RBC) [Mass/Vol] 31.8 g/dL Low 32.0 - 36.0 [facility] Comment on above: Performed By: #### C BC #### [facility] [address] [place] [address] MCV (RBC) [Entitic vol] 93 fL Normal 80 - 100 [facility] Comment on above: Performed By: #### C BC #### [facility] [address] [place] [address] NUCLEATED RBC 0.0 /100 WBC Normal 0.0-0.0 [facility] Comment on above: Performed By: #### C BC #### [facility] [address] [place] [address] Platelets (Bld) [#/Vol] 224 10*3/uL Normal 150 - 450 [facility] Comment on above: Performed By: #### C BC #### [facility] [address] [place] [address] RBC 3.32 x10E12/L Low 4.00 - 5.20 [facility] Comment on above: Performed By: #### C BC #### [facility] [address] [place] [address] WBC (Bld) [#/Vol] 12.1 10*3/uL High 4.4 - 11.3 [facility] Comment on above: Performed By: #### C #### [facility] [address] [place] [address] Daily Progress Note-Nuha leonidasgaurang 09-20-2021 Daily Progress Note-Neurosurgery Service: Neurosurgery Subjective Data: MORALES LEE is a 46 year old Female who is Hospital Day # 6 and POD #2 for 1. Exploration of spinal fusion;2. Reduction of L4/5 dislocation;2. L5-pelvis instrumented fusion with posterolateral arthrodesis;4. Extension of instrumentation with multiple bobby construct and side connectors. Objective Data: Objective Information: T PRBPSpO2 Value36.2266143/5095% Date/Time09/19 16: 1: 16: 1: 1:34 Range(36.7C - 36.7C ) (84 - 110 ) (18 - 18 ) (82 - 118 )/ (50 - 97 ) (94% - 97% ) As of 19-Sep-2021 08:00:00, patient is on 2 L/min of oxygen via nasal cannula. ---- Intake and Output ----- Mn/Dy/Year TimeIntakeOutputNet Sep 18, 2021 10:00 [id number] The Intake and Output Totals for the [...] chronic pain recs- intra-op ketamine, meloxicam post-op, FISH WARDEN until good PT eval, Suboxone as OP [...] Updated: 21-Sep-2021 11:28 by Perez Carlisle) Normal [facility] - Hematology and Cell [...] 20-Sep-2021 12:25 by Carole Carlos (OT) Normal [facility] PT Evaluation v2-attemptedon 09-20-2021 PT Evaluation v2-attempted Rehab: Info: Mode of Treatmentattempted Time IN12:00 Evaluation Not PerformedPer RN pt not appropriate for therapy, pt continues to have low BP and plan to receive blood, will hold and reattempt as appropriate Electronic Signatures: Kaykay Yoo (PT) (Signed 20-Sep-2021 12:42) Authored: Info Last Updated: 20-Sep-2021 12:42 by Kaykay Yoo (PT) Normal [facility] REQUEST-LEUKOREDUCED RED ANJU LSon 09-20-2021 REQUEST-LEUKOREDUCED RED CELLS ORDER RECD Normal [facility] Comment on above: Performed By: #### R ENAL #### [facility] [address] [place] [address] CBCon 09-19-2021 Erythrocyte distribution width (RBC) [Ratio] 12.4 % Normal 11.5 - 14.5 [facility] Comment on above: Performed By: #### R ENAL #### [facility] [address] [place] [address] Hematocrit (Bld) [Volume fraction] 38.3 % Normal 36.0 - 46.0 [facility] Comment on above: Performed By: #### R ENAL #### [facility] [address] [place] [address] Hemoglobin (Bld) [Mass/Vol] 13.4 g/dL Normal 12.0 - 16.0 [facility] Comment on above: Performed By: #### R ENAL #### [facility] [address] [place] [address] MCHC (RBC) [Mass/Vol] 35.0 g/dL Normal 32.0 - 36.0 [facility] Comment on above: Performed By: #### R ENAL #### [facility] [address] [place] [address] MCV (RBC) [Entitic vol] 85 fL Normal 80 - 100 [facility] Comment on above: Performed By: #### R ENAL #### [facility] [address] [place] [address] NUCLEATED RBC 0.0 /100 WBC Normal 0.0-0.0 [facility] Comment on above: Performed By: #### R ENAL #### [facility] [address] [place] [address] Platelets (Bld) [#/Vol] 326 10*3/uL Normal 150 - 450 [facility] Comment on above: Performed By: #### R ENAL #### [facility] [address] [place] [address] RBC 4.51 x10E12/L Normal 4.00 - 5.20 [facility] Comment on above: Performed By: #### R ENAL #### [facility] [address] [place] [address] WBC (Bld) [#/Vol] 20.5 10*3/uL High 4.4 - 11.3 [facility] Comment on above: Performed By: #### R ENAL #### [facility] [address] [place] [address] CBC AND DIFFERENTIALon 09-19 % AUTOMATED IMMATURE GRAN 0.6 % Normal 0.0 - 0.9 [facility] Comment on above: Result Comment: Jaleesa ture Granulocyte Count (IG) includes promyelocytes, myelocytes and metamyelocytes but does not include bands. Percent differential counts (%) should be interpreted in the context of the absolute cell counts (cells/L). Performed By: #### V FPA3 #### [facility] [address] [place] [address] Basophils (Bld) [#/Vol] 0.03 10*3/uL Normal 0.00 - 0.10 [facility] Comment on above: Performed By: #### V FPA3 #### [facility] [address] [place] [address] Basophils/100 WBC (Bld) 0.1 % Normal 0.0 - 2.0 [facility] Comment on above: Performed By: #### V FPA3 #### [facility] [address] [place] [address] Eosinophils (Bld) [#/Vol] 0.01 10*3/uL Normal 0.00 - 0.70 [facility] Comment on above: Performed By: #### V FPA3 #### [facility] [address] [place] [address] Eosinophils/100 WBC (Bld) 0.0 % Normal 0.0 - 6.0 [facility] Comment on above: Performed By: #### V FPA3 #### [facility] [address] [place] [address] Erythrocyte distribution width (RBC) [Ratio] 12.9 % Normal 11.5 - 14.5 [facility] Comment on above: Performed By: #### V FPA3 #### [facility] [address] [place] [address] Hematocrit (Bld) [Volume fraction] 38.3 % Normal 36.0 - 46.0 [facility] Comment on above: Performed By: #### V FPA3 #### [facility] [address] [place] [address] Hemoglobin (Bld) [Mass/Vol] 12.7 g/dL Normal 12.0 - 16.0 [facility] Comment on above: Performed By: #### V FPA3 #### [facility] [address] [place] [address] Lymphocytes (Bld) [#/Vol] 2.89 10*3/uL Normal 1.20 - 4.80 [facility] Comment on above: Performed By: #### V FPA3 #### [facility] [address] [place] [address] Lymphocytes/100 WBC (Bld) 13.5 % Normal 13.0 - 44.0 [facility] Comment on above: Performed By: #### V FPA3 #### [facility] [address] [place] [address] MCHC (RBC) [Mass/Vol] 33.2 g/dL Normal 32.0 - 36.0 [facility] Comment on above: Performed By: #### V FPA3 #### [facility] [address] [place] [address] MCV (RBC) [Entitic vol] 89 fL Normal 80 - 100 [facility] Comment on above: Performed By: #### V FPA3 #### [facility] [address] [place] [address] Monocytes (Bld) [#/Vol] 1.23 10*3/uL High 0.10 - 1.00 [facility] Comment on above: Performed By: #### V FPA3 #### [facility] [address] [place] [address] Monocytes/100 WBC (Bld) 5.7 % Normal 2.0 - 10.0 [facility] Comment on above: Performed By: #### V FPA3 #### [facility] [address] [place] [address] Neutrophils (Bld) [#/Vol] 17.16 10*3/uL High 1.20 - 7.70 [facility] Comment on above: Performed By: #### V FPA3 #### [facility] [address] [place] [address] Neutrophils/100 WBC (Bld) 80.1 % Normal 40.0 - 80.0 [facility] Comment on above: Performed By: #### V FPA3 #### [facility] [address] [place] [address] NUCLEATED RBC 0.0 /100 WBC Normal 0.0-0.0 [facility] Comment on above: Performed By: #### V FPA3 #### [facility] [address] [place] [address] Platelets (Bld) [#/Vol] 401 10*3/uL Normal 150 - 450 [facility] Comment on above: Performed By: #### V FPA3 #### [facility] [address] [place] [address] RBC 4.28 x10E12/L Normal 4.00 - 5.20 [facility] Comment on above: Performed By: #### V FPA3 #### [facility] [address] [place] [address] WBC (Bld) [#/Vol] 21.5 10*3/uL High 4.4 - 11.3 [facility] Comment on above: Performed By: #### V FPA3 #### [facility] [address] [place] [address] COAGULATION SCREENon 022 aPTT Coag (Bld) [Time] 29 s Normal 26 - 39 [facility] Comment on above: Result Comment: Note new reference range as of 08/04/2021 at 10:00am. Performed By: #### R ENAL #### [facility] [address] [place] [address] PT Coag (PPP) [Time] 11.5 s Normal 9.8 - 13.4 [facility] Comment on above: Result Comment: Note new reference range as of 08/04/2021 at 10:00am. Performed By: #### R ENAL #### [facility] [address] [place] [address] PT, INR 1.0 Normal 0.9 - 1.1 [facility] Comment on above: Performed By: #### R ENAL #### [facility] [address] [place] [address] Complete Blood Count + Diffe vidya 09-19-2021 [...] posterolateral arthrodesis;4. Extension of instrumentation with multiple bobby construct and side connectors. Objective Data: Objective Information: T PRBPSpO2 Value36.28041938/8596% Date/Time09/18 17: 17: 17: 17: 17:40 Range(36.4C [...] ----- Mn/Dy/Year TimeIntakeOutputNet Sep 17, 2021 10:00 [id number] The Intake and Output Totals for the last 24 hours are: IntakeOutputNet [id number] Physical Exam by System: Neurological: A&Ox3 RUE D5, B5, T5, HG5, IO5 LUE D4+, B4+, T4+, HG4+, IO5 RLE HF 4+, KE4+, PF5, DF5 (pain limited) LLE HF 4-, KE4-, PF4, DF5 Recent Lab Results: Results: Recent Arterial Blood Gas Results 09/18/2021 11:48 [id number] 24 h range: ( 219 - 224 ) pH7.44 24 h range: ( 7.44 - 7.45 ) lLE931 24 h range: ( 37 - 40 ) CX1721 24 h range: ( 100 - 100 ) Base Excess2.8 24 h range: ( 1.8 - 2.8 ) Kweylefzrsa42.2 24 h range: ( 25.7 - 27.2 [...] the note. I personally evaluated the patient [id number] Comments/ Additional Findings Patients postoperative CT scan [...] Assessment an (more content not included)... Normal [facility] - Coagulationon 0 09-19-2021 aPTT Coag (PPP) [Time] 29 s 26 - 39 [facility] -Gastroen terology-Rosendo lwBocandy 6 [facility] Work Phone: Comment on above: Note new reference pedro quiñones as of 08/04/2021 at 10:00am. INR Coag (PPP) [Relative time] 1.0 {INR} 0.9 - 1.1 [facility]astro[facility]ology-[facility]endo lwell 6 [facility] Work Phone: PT Coag (PPP) [Time] 11.5 s 9.8 - 13.4 MG-G astroen terology-Rosendo moura 6 [facility] Work Phone: Comment on above: Note new reference pedro quiñones as of 08/04/2021 at 10:00am. MAGNESIUMon 09-19-2021 Magnesium [Mass/Vol] 1.59 mg/dL Low 1.60 - 2.40 [facility] Comment on above: Performed By: #### R ENAL #### [facility] [address] [place] [address] PT Evaluation v2-attemptedon 09-19-2021 PT Evaluation v2-attempted Rehab: Info: Mode of Treatmentattempted Time IN11:37 Time OUT11:50 Total Treatment Rahocic77 Evaluation Not PerformedHistory obtained, BP assessed in supine 79/54mmHg, RN notified and redone with 71/51mmHg, will hold PT eval at this time and reattempt as medically appropriate Electronic Signatures: Kaykay Yoo (PT) (Signed 19-Sep-2021 12:14) Authored: Info Last Updated: 19-Sep-2021 12:14 by Kaykay Yoo (PT) Normal [facility] RENAL FUNCTION PANELon 09-19 Albumin [Mass/Vol] 3.4 g/dL Normal 3.4 - 5.0 [facility] Comment on above: Performed By: #### A FPA3 #### [facility] [address] [place] [address] Anion gap [Moles/Vol] 18 mmol/L Normal 10 - 20 [facility] Comment on above: Performed By: #### A FPA3 #### [facility] [address] [place] [address] Calcium [Mass/Vol] 8.3 mg/dL Low 8.6 - 10.6 [facility] Comment on above: Performed By: #### A FPA3 #### [facility] [address] [place] [address] Chloride [Moles/Vol] 100 mmol/L Normal 98 - 107 [facility] Comment on above: Performed By: #### A FPA3 #### [facility] [address] [place] [address] Creatinine [Mass/Vol] 0.60 mg/dL Normal 0.50 - 1.05 [facility] Comment on above: Performed By: #### A FPA3 #### [facility] [address] [place] [address] eGFR FEMALE >90 Normal >90 [facility] Comment on above: Result Comment: CALC ULATIONS OF ESTIMATED GFR ARE PERFORMED USING THE 2020 CKD-EPI STUDY REFIT EQUATION WITHOUT THE RACE VARIABLE FOR THE IDMS-TRACEABLE CREATININE METHODS. https://jasn.asnjournals.org/content/early/ASN.432 3938094 Performed By: #### A FPA3 #### [facility] [address] [place] [address] Glucose [Mass/Vol] 82 mg/dL Normal 74 - 99 [facility] Comment on above: Performed By: #### A FPA3 #### [facility] [address] [place] [address] HCO3 (Bld) [Moles/Vol] 26 mmol/L Normal 21 - 32 [facility] Comment on above: Performed By: #### A FPA3 #### [facility] [address] [place] [address] Phosphate [Mass/Vol] 2.8 mg/dL Normal 2.5 - 4.9 [facility] Comment on above: Result Comment: The performance characteristics of phosphorus testing in heparinized plasma have been validated by the individual laboratory site where testing is performed. Testing on heparinized plasma is not approved by the FDA; however, such approval is not necessary. Performed By: #### A FPA3 #### [facility] [address] [place] [address] Potassium [Moles/Vol] 4.5 mmol/L Normal 3.5 - 5.3 [facility] Comment on above: Performed By: #### A FPA3 #### [facility] [address] [place] [address] Sodium [Moles/Vol] 139 mmol/L Normal 136 - 145 [facility] Comment on above: Performed By: #### A FPA3 #### [facility] [address] [place] [address] Urea nitrogen [Mass/Vol] 9 mg/dL Normal 6 - 23 [facility] Comment on above: Performed By: #### A FPA3 #### [facility] [address] [place] [address] Albumin [Mass/Vol] 3.6 g/dL Normal 3.4 - 5.0 [facility] Comment on above: Performed By: #### R ENAL #### [facility] [address] [place] [address] Anion gap [Moles/Vol] 13 mmol/L Normal 10 - 20 [facility] Comment on above: Performed By: #### R ENAL #### [facility] [address] [place] [address] Calcium [Mass/Vol] 8.9 mg/dL Normal 8.6 - 10.6 [facility] Comment on above: Performed By: #### R ENAL #### [facility] [address] [place] [address] Chloride [Moles/Vol] 100 mmol/L Normal 98 - 107 [facility] Comment on above: Performed By: #### R ENAL #### [facility] [address] [place] [address] Creatinine [Mass/Vol] 0.51 mg/dL Normal 0.50 - 1.05 [facility] Comment on above: Performed By: #### R ENAL #### [facility] [address] [place] [address] eGFR FEMALE >90 Normal >90 [facility] Comment on above: Result Comment: CALC ULATIONS OF ESTIMATED GFR ARE PERFORMED USING THE 2020 CKD-EPI STUDY REFIT EQUATION WITHOUT THE RACE VARIABLE FOR THE IDMS-TRACEABLE CREATININE METHODS. https://jasn.asnjournals.org/content//ASN.913 2372855 Performed By: #### R ENAL #### [facility] [address] [place] [address] Glucose [Mass/Vol] 123 mg/dL High 74 - 99 [facility] Comment on above: Performed By: #### R ENAL #### [facility] [address] [place] [address] HCO3 (Bld) [Moles/Vol] 28 mmol/L Normal 21 - 32 [facility] Comment on above: Performed By: #### R ENAL #### [facility] [address] [place] [address] Phosphate [Mass/Vol] 2.8 mg/dL Normal 2.5 - 4.9 [facility] Comment on above: Result Comment: The performance characteristics of phosphorus testing in heparinized plasma have been validated by the individual laboratory site where testing is performed. Testing on heparinized plasma is not approved by the FDA; however, such approval is not necessary. Performed By: #### R ENAL #### [facility] [address] [place] [address] Potassium [Moles/Vol] 4.3 mmol/L Normal 3.5 - 5.3 [facility] Comment on above: Performed By: #### R ENAL #### [facility] [address] [place] [address] Sodium [Moles/Vol] 137 mmol/L Normal 136 - 145 [facility] Comment on above: Performed By: #### R ENAL #### [facility] [address] [place] [address] Urea nitrogen [Mass/Vol] 8 mg/dL Normal 6 - 23 [facility] Comment on above: Performed By: #### R ENAL #### [facility] [address] [place] [address] Renal Function Panelon 09-19 Albumin BCP dye [...] RACE VARIABLE FOR THE IDMS-TRACEABLE CREATININE METHODS.https://jasn.asnjournals.org/content/early /ASN.6877880259 ANTIBODY IDENT.on 09-18-2021 ANTIBODY IDENT. Anti-E Normal [facility] Comment on above: Performed By: #### A FPA3 #### [facility] [address] [place] [address] ARTERIAL FULL PANELon 2021 Anion gap [Moles/Vol] 5 mmol/L Low 10 - 25 [facility] Comment on above: Performed By: #### A FPA3 ####[id number] [place] [address] BASE EXCESS-BLOOD 2.8 mmol/L Normal -2.0 - 3.0 [facility] Comment on above: Performed By: #### A FPA3 ####[id number] [place] [address] BICARB, CALCULATED 27.2 mmol/L High 22.0 - 26.0 [facility] Comment on above: Performed By: #### A FPA3 ####[id number] [place] [address] CALCIUM,IONIZED 1.20 mmol/L Normal 1.10 - 1.33 [facility] Comment on above: Performed By: #### A FPA3 ####[id number] [place] [address] Chloride [Moles/Vol] 106 mmol/L Normal 98 - 107 [facility] Comment on above: Performed By: #### A FPA3 ####[id number] [place] [address] Glucose [Mass/Vol] 149 mg/dL High 74 - 99 [facility] Comment on above: Performed By: #### A FPA3 ####[id number] [place] [address] Hematocrit (Bld) [Volume fraction] 38.0 % Normal 36.0 - 46.0 [facility] Comment on above: Performed By: #### A FPA3 ####[id number] [place] [address] HGB,CALCULATED 12.9 g/dL Normal 12.0 - 16.0 [facility] Comment on above: Performed By: #### A FPA3 ####[id number] [place] [address] Lactate [Moles/Vol] 0.9 mmol/L Normal 0.4 - 2.0 [facility] Comment on above: Performed By: #### A FPA3 ####[id number] [place] [address] Oxygen (Bld) [Partial pressure] 219 mm[Hg] High 85 - 95 [facility] Comment on above: Performed By: #### A FPA3 ####[id number] [place] [address] PATIENT TEMPERATURE 37.0 degrees C Normal [facility] Comment on above: Result Comment: NOTE : PATIENT RESULTS ARE NOT CORRECTED FOR TEMPERATURE. Performed By: #### A FPA3 ####[id number] [place] [address] PCO2 40 mmHg Normal 38 - 42 [facility] Comment on above: Performed By: #### A FPA3 ####[id number] [place] [address] pH (Bld) 7.44 [pH] High 7.38 - 7.42 [facility] Comment on above: Performed By: #### A FPA3 ####[id number] [place] [address] Potassium [Moles/Vol] 4.4 mmol/L Normal 3.5 - 5.3 [facility] Comment on above: Performed By: #### A FPA3 ####[id number] [place] [address] SO2 100 % Normal 94 - 100 [facility] Comment on above: Performed By: #### A FPA3 ####[id number] [place] [address] Sodium [Moles/Vol] 134 mmol/L Low 136 - 145 [facility] Comment on above: Performed By: #### A FPA3 ####[id number] [place] [address] Anion gap [Moles/Vol] 7 mmol/L Low 10 - 25 [facility] Comment on above: Performed By: #### A FPA3 #### [facility] [address] [place] [address] BASE EXCESS-BLOOD 1.8 mmol/L Normal -2.0 - 3.0 [facility] Comment on above: Performed By: #### A FPA3 #### [facility] [address] [place] [address] BICARB, CALCULATED 25.7 mmol/L Normal 22.0 - 26.0 [facility] Comment on above: Performed By: #### A FPA3 #### [facility] [address] [place] [address] CALCIUM,IONIZED 1.20 mmol/L Normal 1.10 - 1.33 [facility] Comment on above: Performed By: #### A FPA3 #### [facility] [address] [place] [address] Chloride [Moles/Vol] 105 mmol/L Normal 98 - 107 [facility] Comment on above: Performed By: #### A FPA3 #### [facility] [address] [place] [address] Glucose [Mass/Vol] 174 mg/dL High 74 - 99 [facility] Comment on above: Performed By: #### A FPA3 #### [facility] [address] [place] [address] Hematocrit (Bld) [Volume fraction] 37.0 % Normal 36.0 - 46.0 [facility] Comment on above: Performed By: #### A FPA3 #### [facility] [address] [place] [address] HGB,CALCULATED 12.6 g/dL Normal 12.0 - 16.0 [facility] Comment on above: Performed By: #### A FPA3 #### [facility] [address] [place] [address] Lactate [Moles/Vol] 1.1 mmol/L Normal 0.4 - 2.0 [facility] Comment on above: Performed By: #### A FPA3 #### [facility] [address] [place] [address] Oxygen (Bld) [Partial pressure] 224 mm[Hg] High 85 - 95 [facility] Comment on above: Performed By: #### A FPA3 #### [facility] [address] [place] [address] PATIENT TEMPERATURE 37.0 degrees C Normal [facility] Comment on above: Result Comment: NOTE : PATIENT RESULTS ARE NOT CORRECTED FOR TEMPERATURE. Performed By: #### A FPA3 #### [facility] [address] [place] [address] PCO2 37 mmHg Low 38 - 42 [facility] Comment on above: Performed By: #### A FPA3 #### [facility] [address] [place] [address] pH (Bld) 7.45 [pH] High 7.38 - 7.42 [facility] Comment on above: Performed By: #### A FPA3 #### [facility] [address] [place] [address] Potassium [Moles/Vol] 3.9 mmol/L Normal 3.5 - 5.3 [facility] Comment on above: Performed By: #### A FPA3 #### [facility] [address] [place] [address] SO2 100 % Normal 94 - 100 [facility] Comment on above: Performed By: #### A FPA3 #### [facility] [address] [place] [address] Sodium [Moles/Vol] 134 mmol/L Low 136 - 145 [facility] Comment on above: Performed By: #### A FPA3 #### [facility] [address] [place] [address] CT L Spine without Contrasto n 09-18-2021 [...] posterolateral arthrodesis;4. Extension of instrumentation with multiple bobby construct and side connectors. Objective Data: Objective Information: T PRBPSpO2 [id number]/4391% Date/Time09/18 6: 5: 5: 5: 5:56 Range(37C [...] Recent Arterial Blood Gas Results 09/18/2021 11:48 [id number] 24 h range: ( 219 - 224 ) pH7.44 24 h range: ( 7.44 - 7.45 ) rJC110 24 h range: ( 37 - 40 ) OW7130 24 h range: ( 100 - 100 ) Base Excess2.8 24 h range: ( 1.8 - 2.8 ) Tgwstuvyxsw61.2 24 h range: ( 25.7 - 27.2 ) Assessment and Plan: Code Status: Code StatusFull Code Electronic Signatures: Bryan Mora) (Signed 18-Sep-2021 14:47) Authored: Service, Subjective Data, Objective Data, Assessment and Plan, Note Completion Last Updated: 18-Sep-2021 14:47 by Bryan Mora) [facility] Daily Progress Note-Neurosjudy laurenyon 09-18-2021 Daily Progress Note-Neurosurgery Service: Neurosurgery Subjective Data: MORALES LEE is a 46 year old Female who is Hospital Day # 4. Objective Data: Objective Information: T PRBPSpO2 [id number]/4391% Date/Time09/18 6: 5: 5: 5: 5:56 Range(36.6C [...] Severe ---- Intake and Output ----- [facility]Dy[facility] 17, 2021 10:00 [id number] Sep 17, 2021 2:00 [id number] The Intake and Output Totals for the [...] the note. I personally evaluated the patient [id number] Electronic Signatures: Fidel Maciel (Resident)) (Signed 18-Sep-2021 06:55) Authored: Service, Subjective Data, Objective Data, Assessment and Plan, Note Completion Lex Frederick) (Signed 19-Sep-2021 10:18) Authored: Note Completion Co-Signer: Service, Subjective Data, Objective Data, Assessment and Plan, Note Completion Last Updated: 19-Sep-2021 10:18 by Lex Frederick) Normal [facility] - Chemistry and C [...] - 100 M [facility]-Gastroen [facility]ology-[place] 6 [facility] Work Phone: Platelets (Bld) [#/Vol] 326 10*3/uL 150 - 450 [facility] [place] 6 [facility] Work Phone: RBC (Bld) [#/Vol] 4.51 {x10E12/L} See Below [facility] -Gastroen [facility]ology-[facility] 6 [facility] Work Phone: Comment on above: Reference Range: 4.0 0 - 5.20 WBC (Bld) [#/Vol] 20.5 10*3/uL above high threshold 4.4 - 11.3 [facility]-Gastroen [facility]ology-[place] [place] 6 [facility] Work Phone: Hematocrit (Bld) [Volume fraction] 38.0 % See Below [facility]astroen [facility]ology-[place] 6 [facility] Work Phone: Comment on above: Reference Range: 36. 0 - 46.0 Hemoglobin (Bld) [Mass/Vol] 12.9 g/dL See Below [facility]astroen [facility]ology-[place] 6 [facility] Work Phone: Comment on above: Reference Range: 12. 0 - 16.0 Hematocrit (Bld) [Volume fraction] 37.0 % See Below [facility]-Gastroen terology-[place] 6 [facility] Work Phone: Comment on above: Reference [...] dated 10/07/2020. MRI dated 12/11/2020 ACCESSION NUMBER(S): [id number] ORDERING CLINICIAN: ANGELO JUAREZ TECHNIQUE: Thin cut [...] as stated. This study was interpreted at [facility], [place], [place]. Electronically signed by: BOONE LAO MD Normal [facility] No Panel Informationon 09-18 0.0 [...] Respiratory Rate15 breath per minute Blood Pressure Ozwkalay11 mm/Hg Blood Pressure Evlfkrlte25 mm/Hg COVID 19 Results in Last 7 [...] 18-Sep-2021 06:59 by Lian Zuleta (SANAZ) Normal [facility] Radiologyon 09-18-2021 XR Chest Single [...] RACE VARIABLE FOR THE IDMS-TRACEABLE CREATININE METHODS.https://jasn.asnjournals.org/content/early/ /ASN.2844168346 TH CHEST; 1 VIEWon 2 TH CHEST; 1 VIEW Patient Name: MORALES LEE STUDY: CHEST; 1 VIEW; 09/18/2021 2:38 pm INDICATION: s/p central line placement (right IJ double lumen) . COMPARISON: Radiograph dated 09/15/2021 ACCESSION NUMBER(S): [id number] ORDERING CLINICIAN: BRYAN MORA FINDINGS: Right IJ [...] Electronically signed by: LORELEI JOHNSTON MD Normal [facility] VENOUS FULL PANELon 09-18-19 Anion gap [Moles/Vol] 6 mmol/L Low 10 - 25 [facility] Comment on above: Performed By: #### V FPA3 #### [facility] [address] [place] [address] BASE EXCESS-BLOOD 3.9 mmol/L High -2.0 - 3.0 [facility] Comment on above: Performed By: #### V FPA3 #### [facility] [address] [place] [address] BICARB, CALCULATED 28.5 mmol/L High 22.0 - 26.0 [facility] Comment on above: Performed By: #### V FPA3 #### [facility] [address] [place] [address] CALCIUM,IONIZED 1.17 mmol/L Normal 1.10 - 1.33 [facility] Comment on above: Performed By: #### V FPA3 #### [facility] [address] [place] [address] Chloride [Moles/Vol] 103 mmol/L Normal 98 - 107 [facility] Comment on above: Performed By: #### V FPA3 #### [facility] [address] [place] [address] Glucose [Mass/Vol] 188 mg/dL High 74 - 99 [facility] Comment on above: Performed By: #### V FPA3 #### [facility] [facility] [address] [place] [address] Hematocrit (Bld) [Volume fraction] 39.0 % Normal 36.0 - 46.0 [facility] Comment on above: Performed By: #### V FPA3 #### [facility] [address] [place] [address] HGB,CALCULATED 13.3 g/dL Normal 12.0 - 16.0 [facility] Comment on above: Performed By: #### V FPA3 #### [facility] [address] [place] [address] Lactate [Moles/Vol] 1.2 mmol/L Normal 0.4 - 2.0 [facility] Comment on above: Performed By: #### V FPA3 #### [facility] [address] [place] [address] Oxygen (Bld) [Partial pressure] 56 mm[Hg] High 35 - 45 [facility] Comment on above: Performed By: #### V FPA3 #### [facility] [address] [place] [address] PATIENT TEMPERATURE 37.0 degrees C Normal [facility] Comment on above: Result Comment: NOTE : PATIENT RESULTS ARE NOT CORRECTED FOR TEMPERATURE. Performed By: #### V FPA3 #### [facility] [address] [place] [address] PCO2 42 mmHg Normal 41 - 51 [facility] Comment on above: Performed By: #### V FPA3 #### [facility] [address] [place] [address] pH (Bld) 7.44 [pH] High 7.33 - 7.43 [facility] Comment on above: Performed By: #### V FPA3 #### [facility] [address] [place] [address] Potassium [Moles/Vol] 4.1 mmol/L Normal 3.5 - 5.3 [facility] Comment on above: Performed By: #### V FPA3 #### [facility] [address] [place] [address] SO2 91 % High 45 - 75 [facility] Comment on above: Performed By: #### V FPA3 #### [facility] [address] [place] [address] Sodium [Moles/Vol] 133 mmol/L Low 136 - 145 [facility] Comment on above: Performed By: #### V FPA3 #### [facility] [address] [place] [address] CORONAVIRUS 2019, SCREEN ASY MPTOMATICon 09-17-2021 SARS-CoV-2 (COVID-19) RNA ADRIÁN+probe Ql (Unsp spec) Not detected Normal Not Detected [facility] Comment on above: Result Comment: . This test has received FDA Emergency Use Authorization (EUA) and has been verified by [facility] ([facility]). This test is only authorized for the duration of time that circumstances exist to justify the authorization of the emergency use of in vitro diagnostic tests for the detection of SARS-CoV-2 virus and/or diagnosis of COVID-19 infection under section 564(b)(1) of the Act, 21 U.S.C. 360bbb-3(b)(1), unless the authorization is terminated or revoked sooner. [facility] is certified under CLIA-88 as qualified to perform high complexity testing. Testing is performed in the [facility] located at [address] [place] [address]. SARS-CoV-2/Flu/RSV Multiplex Test: Fact sheet for providers: https://www.fda.gov/media/735585/download Fact sheet for patients: https://www.fda.gov/media/150425/download Performed By: #### C OVSC ####[id number] [place] [address] Lab Specimen Source Nasal, Nasopharyngeal Normal [facility] Comment on above: Performed By: #### C OVSC ####[id number] [place] [address] Coronavirus 2019 RNA by PCR, Screening Asymptomticon 09-17-2021 Coronavirus 2019 RNA by PCR, Screening Asymptomtic Not detected Normal See Below [facility] Work Phone: Comment on above: SOURCE: Nasal, Nasop haryngealReference Range: Not Detected.This test has received FDA Emergency Use Authorization (EUA) and has been verified by [facility] ([facility]). This test is only authorized for the duration of time that circumstances exist to justify the authorization of the emergency use of in vitro diagnostic tests for the detection of SARS-CoV-2 virus and/or diagnosis of COVID-19 infection under section 564(b)(1) of the Act, 21 U.S.C. 360bbb-3(b)(1), unless the authorization is terminated or revoked sooner. [facility] is certified under CLIA-88 as qualified to perform high complexity testing. Testing is performed in the [facility] located at [address] [place] [address].SARS-CoV-2/Flu/RSV Multiplex Test: Fact sheet for providers: https://www.fda.gov/media/613444/downloadFact sheet for patients: https://www.fda.gov/media/116708/download Covid 19 Resultson 2 SARS-CoV-2 (COVID-19) RNA [...] or Naproxen (Aleve) can also be used. Mskx-urk-bootjxb cough and cold medicines can be used according to the instructions on the package. Some iurz-nsf-wbchkfw medicines also contain acetaminophen. Make sure you [...] water are not available, use alcohol-based hand quartz mounter. Avoid touching your eyes, nose, and mouth [...] 24 mariella (more content not included)... Normal [facility] Daily Progress Note - Psychi [...] pain but found it well-controlled on Dilaudid FISH WARDEN and 5/10 mg oxycodone. Pt is interested [...] he has been working (cardoza at a [employer]), but she looks forward to his [...] her suboxone. Objective: Objective Information: T PRBPSpO2 Value36.27048653/9095% Date/Time09/17 4: 10: 10: 10: 10:00 Range(35.7C - 36.6C ) (81 - 89 ) (10 - 23 ) (73 - 117 )/ (43 - 90 ) (91% - 96% ) As of 17-Sep-2021 08:00:00, patient is on 3 L/min of oxygen via nasal cannula. Pain reported at 09/17 8:00: 8 = Severe ---- Intake and Output ----- Mn/Dy/Year TimeIntakeOutputNet Sep 17, 2021 6:00 [id number] Sep 16, 2021 2:00 [id number] The Intake and Output Totals for the last 24 hours are: IntakeOutputNet [id number] Mental Status Exam: General: Awake, lying in [...] a Da (more content not included)... Normal [facility] Daily Progress Note-Neurosur geryon 09-17-2021 Daily Progress Note-Neurosurgery Service: Neurosurgery Subjective Data: MORALES LEE is a 46 year old Female who is Hospital Day # 3. Objective Data: Objective Information: T PRBPSpO2 Value35.3198804/4393% Date/Time09/16 18:5409/16 18:5409/16 18:5409/16 18: 18:54 Range(35.7C - 36.4C ) (81 - 91 ) (15 - 24 ) (87 - 118 )/ (43 - 84 ) (91% - 96% ) As of 16-Sep-2021 18:54:00, patient is on 2 L/min of oxygen via nasal cannula. Pain reported at 09/16 16:34: 10 = Severe ---- Intake and Output ----- Mn/Dy/Year TimeIntakeOutFormerly [facility] Sep 16, 2021 2:00 [id number] Physical Exam by System: Neurological: A&Ox3 RUE [...] the note. I personally evaluated the patient [id number] Comments/ Additional Findings I again explained to [...] Updated: 19-Sep-2021 10:16 by Lex Frederick) Normal [facility] HCG,URINEon 09-17-2021 Beta HCG ( test) Ql (U) Negative Normal Negative [facility] Comment on above: Performed By: #### A FPA3 #### [facility] [address] [place] [address] Laboratory - Blood bankon ABO group Nom [...] 09-17-2021 REQUEST-LEUKOREDUCED RED CELLS ORDER RECD Normal [facility] Comment on above: Performed By: #### O DIRECTOR OF PHYSICAL SECURITY #### [facility] [address] [place] [address] TYPE + SCREENon 09-17-2021 ABO TYPE O Normal [facility] Comment on above: Performed By: #### T +S #### [facility] [address] [place] [address] RH TYPE Positive Normal [facility] Comment on above: Performed By: #### T +S #### [facility] [address] [place] [address] Urine Teston 09-17 HCG ( test) Ql (U) Negative Negative [facility]astroen [facility] I Work Phone: BNPon 09-16-2021 Natriuretic peptide B (Bld) [Mass/Vol] 37 pg/mL Normal 0 - 99 [facility] Comment on above: Result Comment: [...] information. Performed By: #### A FPA3 #### [facility] [address] [place] [address] CBC AND DIFFERENTIALon 09-16 % AUTOMATED IMMATURE GRAN 0.5 % Normal 0.0 - 0.9 [facility] Comment on above: Result Comment: Jaleesa ture Granulocyte Count (IG) includes promyelocytes, myelocytes and metamyelocytes but does not include bands. Percent differential counts (%) should be interpreted in the context of the absolute cell counts (cells/L). Performed By: #### C BCDF ####[id number] [place] [address] Basophils (Bld) [#/Vol] 0.04 10*3/uL Normal 0.00 - 0.10 [facility] Comment on above: Performed By: #### C BCDF ####[id number] [place] [address] Basophils/100 WBC (Bld) 0.5 % Normal 0.0 - 2.0 [facility] Comment on above: Performed By: #### C BCDF ####[id number] [place] [address] Eosinophils (Bld) [#/Vol] 0.26 10*3/uL Normal 0.00 - 0.70 [facility] Comment on above: Performed By: #### C BCDF ####[id number] [place] [address] Eosinophils/100 WBC (Bld) 3.0 % Normal 0.0 - 6.0 [facility] Comment on above: Performed By: #### C BCDF ####[id number] [place] [address] Erythrocyte distribution width (RBC) [Ratio] 13.0 % Normal 11.5 - 14.5 [facility] Comment on above: Performed By: #### C BCDF ####[id number] [place] [address] Hematocrit (Bld) [Volume fraction] 42.7 % Normal 36.0 - 46.0 [facility] Comment on above: Performed By: #### C BCDF ####[id number] [place] [address] Hemoglobin (Bld) [Mass/Vol] 14.1 g/dL Normal 12.0 - 16.0 [facility] Comment on above: Performed By: #### C BCDF ####[id number] [place] [address] Lymphocytes (Bld) [#/Vol] 3.17 10*3/uL Normal 1.20 - 4.80 [facility] Comment on above: Performed By: #### C BCDF ####[id number] [place] [address] Lymphocytes/100 WBC (Bld) 37.2 % Normal 13.0 - 44.0 [facility] Comment on above: Performed By: #### C BCDF ####[id number] [place] [address] MCHC (RBC) [Mass/Vol] 33.0 g/dL Normal 32.0 - 36.0 [facility] Comment on above: Performed By: #### C BCDF ####[id number] [place] [address] MCV (RBC) [Entitic vol] 91 fL Normal 80 - 100 [facility] Comment on above: Performed By: #### C BCDF ####[id number] [place] [address] Monocytes (Bld) [#/Vol] 0.47 10*3/uL Normal 0.10 - 1.00 [facility] Comment on above: Performed By: #### C BCDF ####[id number] [place] [address] Monocytes/100 WBC (Bld) 5.5 % Normal 2.0 - 10.0 [facility] Comment on above: Performed By: #### C BCDF ####[id number] [place] [address] Neutrophils (Bld) [#/Vol] 4.55 10*3/uL Normal 1.20 - 7.70 [facility] Comment on above: Performed By: #### C BCDF ####[id number] [place] [address] Neutrophils/100 WBC (Bld) 53.3 % Normal 40.0 - 80.0 [facility] Comment on above: Performed By: #### C BCDF ####[id number] [place] [address] NUCLEATED RBC 0.0 /100 WBC Normal 0.0-0.0 [facility] Comment on above: Performed By: #### C BCDF ####[id number] [place] [address] Platelets (Bld) [#/Vol] 278 10*3/uL Normal 150 - 450 [facility] Comment on above: Performed By: #### C BCDF ####[id number] [place] [address] RBC 4.70 x10E12/L Normal 4.00 - 5.20 [facility] Comment on above: Performed By: #### C BCDF ####[id number] [place] [address] WBC (Bld) [#/Vol] 8.5 10*3/uL Normal 4.4 - 11.3 [facility] Comment on above: Performed By: #### C BCDF ####[id number] [place] [address] COAGULATION SCREENon 022 aPTT Coag (Bld) [Time] 31 s Normal 26 - 39 [facility] Comment on above: Result Comment: Note new reference range as of 08/04/2021 at 10:00am. Performed By: #### V FPA3 #### [facility] [address] [place] [address] PT Coag (PPP) [Time] 11.6 s Normal 9.8 - 13.4 [facility] Comment on above: Result Comment: Note new reference range as of 08/04/2021 at 10:00am. Performed By: #### V FPA3 #### [facility] [address] [place] [address] PT, INR 1.0 Normal 0.9 - 1.1 [facility] Comment on above: Performed By: #### V FPA3 #### [facility] [address] [place] [address] Clinical Event Note-ADMISSIO N CLARIFICATIONon 09-16-2021 Clinical [...] and monitoring for withdrawal. Provider/Team Contact Info-Pager [phone] Electronic Signatures: Sharmin Guaman (STRATEGIES ANALYST-SERVICE STATION OPERATOR) (Signed 16-Sep-2021 12:07) Authored: Clinical Event Note Last Updated: 16-Sep-2021 12:07 by Sharmin Guaman (STRATEGIES ANALYST-SERVICE STATION OPERATOR) Normal [facility] Complete Blood Count + Diffe [...] 8.5 10*3/uL 4.4 - 11.3 [facility] troen terology-[facility] I Work Phone: Complete Blood [...] the note. I personally evaluated the patient [id number] Electronic Signatures: Chidi Lamar ( (Fellow)) (Signed 16-Sep-2021 08:54) Authored: History of Present Illness, Review Family/Social History and ROS, Allergies Aaron Fernandes (Resident)) (Signed 16-Sep-2021 15:24) Authored: Service, History of Present Illness, Review Family/Social History and ROS, Objective, Assessment/Recommendation s, Note Completion Chidi Dobbs () (Signed 16-Sep-2021 18:21) Authored: Assessment/Recommendation s, Note Completion Co-Signer: Assessment/Recommendation s, Note Completion Last Updated: 16-Sep-2021 18:21 by Chidi Dobbs () References: 1. Data Referenced From Consult - Psychiatry 15-Sep-2021 20:42 Normal [facility] Consult-Perioperative Medici neon 09-16-2021 Consult-Perioperative [...] penicillin: Unknown Objective: Objective Information: T PRBPSpO2 Value36.95117989/8491% Date/Time09/16 11:131 12:4909/16 12:4909/16 12: 12:49 Range(36.3C [...] 100 mg (more content not included)... Normal [facility] Cult, Urineon 09-16-2021 Bacteria identified Cx Nom (U) Abnormal [facility]-Gastroen terology-[facility] Work Phone: Daily Progress Note-Neurosur geryon 09-16-2021 Daily Progress Note-Neurosurgery Service: Neurosurgery Subjective Data: JESUS MORALES Parker is a 46 year old Female who is Hospital Day # 3. Objective Data: Objective Information: T PRBPSpO2 Value36.2751966/6693% Date/Time09/16 1: 4: 4: 4: 4:00 Range(36.3C [...] in AM COWS psych recs SCD's, [facility] Attestation: Note Completion: I am a: [...] the note. I personally evaluated the patient [id number] Comments/ Additional Findings TO OR this Tuesday if medically optimized for T12 - Pelvis fusion and Instrumentation. Pain consult for management regrading Suboxone and pain control in the perioperative period. US LE MRI of the lumbar spine., Lex Frederick MD, [facility], FAANS Director - Minimally Invasive Spine Surgery [facility] Technology Coordinator of Neurological Surgery [facility] [employer] [place], [place] Electronic Signatures: Fidel Maciel (Resident)) (Signed 16-Sep-2021 04:33) Authored: Service, Subjective Data, Objective Data, Assessment and Plan, Note Completion Lex Frederick) (Signed 16-Sep-2021 10:22) Authored: Note Completion Co-Signer: Service, Subjective Data, Objective Data, Assessment and Plan, Note Completion Last Updated: 16-Sep-2021 10:22 by Lex Frederick) Normal [facility] EMR ADDONon 09-16-2021 ADDON CONFIRMATION REQUEST REC'D Normal [facility] Comment on above: Performed By: #### E MRAD ####NO LOCATION NEEDED Laboratory - Coagulationon 0 09-16-2021 aPTT Coag (PPP) [Time] 31 s 26 - 39 [facility] Work Phone: Comment on above: Note new reference pedro quiñones as of 08/04/2021 at 10:00am. INR Coag (PPP) [Relative time] 1.0 {INR} 0.9 - 1.1 [facility] Work Phone: PT Coag (PPP) [Time] 11.6 s 9.8 - 13.4 [facility]-G astroen terology-[facility] Work Phone: Comment on above: Note new reference pedro quiñones as of 08/04/2021 at 10:00am. No Panel Informationon 09-16 37 pg/mL 0 - 99 [facility] Work Phone: Comment on above: . <100 pg/mL - Heart failure [id number] pg/mL - Intermediate probability of acute heart. [...] [Mass/Vol] 3.5 g/dL Normal 3.4 - 5.0 [facility] Comment on above: Performed By: #### R ENAL #### [facility] [address] [place] [address] Anion gap [Moles/Vol] 14 mmol/L Normal 10 - 20 [facility] Comment on above: Performed By: #### R ENAL #### [facility] [address] [place] [address] Calcium [Mass/Vol] 8.9 mg/dL Normal 8.6 - 10.6 [facility] Comment on above: Performed By: #### R ENAL #### [facility] [address] [place] [address] Chloride [Moles/Vol] 101 mmol/L Normal 98 - 107 [facility] Comment on above: Performed By: #### R ENAL #### [facility] [address] [place] [address] Creatinine [Mass/Vol] 0.63 mg/dL Normal 0.50 - 1.05 [facility] Comment on above: Performed By: #### R ENAL #### [facility] [address] [place] [address] eGFR FEMALE >90 Normal >90 [facility] Comment on above: Result Comment: CALC ULATIONS OF ESTIMATED GFR ARE PERFORMED USING THE 2020 CKD-EPI STUDY REFIT EQUATION WITHOUT THE RACE VARIABLE FOR THE IDMS-TRACEABLE CREATININE METHODS. https://jasn.asnjournals.org/content/early//ASN.799 3592424 Performed By: #### R ENAL #### [facility] [address] [place] [address] Glucose [Mass/Vol] 88 mg/dL Normal 74 - 99 [facility] Comment on above: Performed By: #### R ENAL #### [facility] [address] [place] [address] HCO3 (Bld) [Moles/Vol] 29 mmol/L Normal 21 - 32 [facility] Comment on above: Performed By: #### R ENAL #### [facility] [address] [place] [address] Phosphate [Mass/Vol] 3.4 mg/dL Normal 2.5 - 4.9 [facility] Comment on above: Result Comment: The performance characteristics of phosphorus testing in heparinized plasma have been validated by the individual laboratory site where testing is performed. Testing on heparinized plasma is not approved by the FDA; however, such approval is not necessary. Performed By: #### R ENAL #### [facility] [address] [place] [address] Potassium [Moles/Vol] 3.7 mmol/L Normal 3.5 - 5.3 [facility] Comment on above: Performed By: #### R ENAL #### [facility] [address] [place] [address] Sodium [Moles/Vol] 140 mmol/L Normal 136 - 145 [facility] Comment on above: Performed By: #### R ENAL #### [facility] [address] [place] [address] Urea nitrogen [Mass/Vol] 10 mg/dL Normal 6 - 23 [facility] Comment on above: Performed By: #### R ENAL #### [facility] [address] [place] [address] Renal Function Panelon 09-16 Albumin BCP dye [Mass/Vol] 3.5 g/dL 3.4 - 5.0 [facility] Work Phone: Anion gap [Moles/Vol] 14 [...] 88 mg/dL 74 - 99 [facility] tro[facility]ology-[facility] I Work Phone: Phosphate [Mass/Vol] [...] RACE VARIABLE FOR THE IDMS-TRACEABLE CREATININE METHODS.https://jasn.asnjournals.org/content/early/ /ASN.3226274214 UA MICROSCOPICon 09-16-2021 BACTERIA 2+ /HPF Abnormal [facility] Comment on above: Performed By: #### U AMIC ####[id number] [place] [address] Mucus Ql (Urine sed) 1+ /LPF Normal [facility] Comment on above: Performed By: #### U AMIC ####[id number] [place] [address] RBC 3 /HPF Normal 0-5 [facility] Comment on above: Performed By: #### U AMIC ####[id number] [place] [address] SQUAMOUS EPITH. CELLS 2 /HPF Normal [facility] Comment on above: Performed By: #### U AMIC ####[id number] [place] [address] WBC 115 /HPF Abnormal 0-5 [facility] Comment on above: Performed By: #### U AMIC ####[id number] [place] [address] URINALYSISon 09-16-2021 Appearance (U) HAZY Normal CLEAR [facility] Comment on above: Performed By: #### U A ####[id number] [place] [address] Bilirubin Ql (U) Negative Normal NEGATIVE [facility] Comment on above: Performed By: #### U A ####[id number] [place] [address] Color (U) YELLOW Normal STRAW,YELL OW [facility] Comment on above: Performed By: #### U A ####[id number] [place] [address] Glucose Ql (U) Negative Normal NEGATIVE [facility] Comment on above: Performed By: #### U A ####[id number] [place] [address] Hemoglobin Ql (U) Negative Normal NEGATIVE [facility] Comment on above: Performed By: #### U A ####[id number] [place] [address] Ketones Ql (U) Negative Normal NEGATIVE [facility] Comment on above: Performed By: #### U A ####[id number] [place] [address] Leukocyte esterase Test strip Ql (U) LARGE (3+) Abnormal NEGATIVE [facility] Comment on above: Performed By: #### U A ####[id number] [place] [address] Nitrite Ql (U) Positive Abnormal NEGATIVE [facility] Comment on above: Performed By: #### U A ####[id number] [place] [address] pH (U) 6.0 [pH] Normal 5.0 - 8.0 [facility] Comment on above: Performed By: #### U A ####[id number] [place] [address] Protein Ql (U) Negative Normal NEGATIVE [facility] Comment on above: Performed By: #### U A ####[id number] [place] [address] Specific gravity (U) [Rel density] 1.011 Normal 1.005 - 1.035 [facility] Comment on above: Performed By: #### U A ####[id number] [place] [address] Urobilinogen (U) [Mass/Vol] 2.0 mg/dL High 0.0 - 1.9 [facility] Comment on above: Result Comment: [...] positive urobilinogen. Performed By: #### U A ####[id number] [place] [address] URINE CULTURE,BACTERIALon URINE CULTURE,BACTERIAL PATIENT: Fay LEE LOCATION: [facility]ONI GRAHAM#: [id number] : 71 AGE: SEX: F ORDERED BY: [...] DEPENDENT NS=NONSUSCEPTIBLE X=REPORTED IN ERROR ___ Normal [facility] Comment on above: Performed By: #### A FPA3 #### [facility] [address] [place] [address] Urinalysison 09-16-2021 Color (U) YELLOW See Below [facility] Work Phone: Comment on above: Reference Range: STR AW,YELLOW Glucose Ql (U) Negative NEGATIVE [facility]astroe n [facility]ology-[facility] Work Phone: Ketones Ql (U) Negative NEGATIVE [facility]roe n [facility]ology[facility] Work Phone: Leukocyte esterase Test strip Ql (U) LARGE (3+) Abnormal NEGATIVE [facility] I Work Phone: pH (U) 6.0 [pH] 5.0 - 8.0 [facility] Work Phone: Protein (U) [Mass/Vol] Negative NEGATIVE [facility] Work Phone: RBC (U) [#/Vol] Negative NEGATIVE [facility] en [facility] I Work Phone: [phone] Specific gravity (U) [Rel density] 1.011 1 [...] 2+ Abnormal M [facility]astroen [facility]ology-[place] I Work Phone: Urinalysis, Microscopic 2 {/HPF} M [facility] Work Phone: Urinalysis, Microscopic 3 {/HPF} 0-5 M [facility] Work Phone: Urinalysis, Microscopic 115 {/HPF} Abnormal 0-5 M [facility] Work Phone: VASC LAB Venous Duplex Ultra sound DVTon 09-16-2021 VASC LAB Venous Duplex Ultrasound DVT [place] [address] and Vascular Lab Report Lower Venous Duplex Ultrasound Patient Name: MORALES LEE Reading Physician: [id number] Arjun Romero MD, RPVI Study Date: 09/16/2021 Referring Physician: [id number] RAGSDALE MRN/PID: [id number] PCP: Accession/Order#: [id number] CC Report to: Date of : 1975 Technologist: Greyson Burleson RVT Gender: F Technologist 2: Admission Status: Outpatient Location Performed: [facility] Diagnosis/ICD: M79.89-Left leg swelling; M79.89-Right leg swelling Procedure/CPT: 20253 Peripheral venous duplex scan for DVT complete-89701 CONCLUSIONS: Right Lower Venous: No evidence of [...] Spontaneous/Phasic Peroneal Yes None PTV Yes None [id number] Arjun Romero MD, RPCONSUELO Final Normal [facility] VAS LAB Venous Duplex Ultra sound for DVTon 09-16-2021 VAS LAB Venous Duplex Ultrasound for DVT [facility] Work Phone: No Panel Informationon 09-15 [email or web address] ?RetrieveTestByDateTime?P mjrrltKD=[id number]&Date=1 09-05-2021&Time=19%3a14%3a 23%3a00&TestType=ECG&Site =1&OutputType=PDF&Ext=PDF [facility] [...] I Work Phone: [email or web address] ?RetrieveTestByDateTime?P anvhutUN=[id number]&Date=1 09-05-2021&Time=19%3a14%3a 42%3a00&TestType=ECG&Site =1&OutputType=PDF&Ext=PDF [facility] Work Phone: [phone] [facility] Work Phone: [phone] [facility] [...] (Advanced Practice Nurse) done by Concetta Shi ([facility]) Admission - Reconciliation: 15-Sep-2021 19:03 by: [...] to Incomplete: 30-Sep-2021 14:18 by: Concetta Shi ([facility]) Admission - Reconciliation: 30-Sep-2021 14:20 by: Concetta Shi ([facility]) Home MedicationsEnteredLast Dose TakenReconciled with current Order Reconciliation Comment/ Additional Information acetaminophen 325 mg oral tablet 2 tab(s) orally every 6 hours, as needed while having post operative [id number]-Vhj-8832 Reviewed and Held Ambien CR 12.5 mg oral tablet, extended release 1 tab(s) oral nge88-Ldu-8861 Zolpidem Tablet (AMBIEN)DOSE = 10 mg Oral At BedtimeNotes from Pharmacy: Substitution For Zolpidem (Ambien CR) 12.5 mg at Bedtime Ambien CR 12.5 mg oral tablet, extended release continued as the inpatient order Zolpidem Ankle Foot Orthosis for foot jrje54-Reu-1390 Reviewed and Held betamethasone topical valerate 0.1% topical cream 1 carlene topical prn 15-Sep-2021 EnteredInError Reviewed and Held Bilateral Prafos - orthotics to fit, - ICD 10: R26.0, M21.37, M62.81 30-Sep-2021 Reviewed and Held calcium-vitamin D 500 mg-200 intl units (5 mcg) oral tablet 1 tab(s) orally 4 times a ozt25-Zjc-2907 Calcium 500 mg - Vitamin D 200 [...] times a day, as needed for muscle -Skp-6427 Cyclobenzaprine Tablet (FLEXERIL)DOSE = 10 mg Oral [...] Held diclofenac topical 1% topical gel 1 carlene topical szc09-Pns-2526 Reviewed and Held DULoxetine 30 mg oral [...] 2 tab(s) orally once a day, As Xpbjgs29-Ail-7143 Reviewed and Held gabapentin 800 mg oral tablet 1 tab(s) oral 3 times a fji15-Hnc-8512 Gabapentin Capsule (NEURONTIN)DOSE = 800 mg Oral 3 Times a Day gabapentin 800 mg oral tablet continued as the inpatient order Gabapentin LEFT AFO -Orthotics to fit, ICD 10: M21.5905-Zsx-4359 Reviewed and Held lidocaine 5% topical film Apply topically to affected area once a day, As Needed near surgical incision for incisional pain 15-Sep-2021 EnteredInError Reviewed and Held lisinopril 20 mg oral tablet 1 tab(s) oral once a ebj59-Dvz-2542 Lisinopril Tablet (PRINIVIL, ZESTRIL)DOSE = 20 mg [...] - available over the counter at any wucqkyhd00-Wbp-8645 Reviewed and Held RIGHT AFO - Orthotics to fit, - M21.3837-Gjn-5768 Reviewed and Held sennosides-docusate 8.6 mg-50 mg oral tablet 2 tab(s) orally 2 times a day , -Take while using oxycodone for post operative pain to prevent contipation 15-Sep-19 (more content not included)... Normal [facility] Radiologyon 09-15-2021 XR Chest Single view Normal [facility] Work Phone: TH CHEST 1 VIEWon 09-15-2021 TH CHEST 1 VIEW Patient Name: MORALES LEE STUDY: CHEST 1 VIEW; 09/15/2021 7:21 pm INDICATION: pre-op . COMPARISON: 12/26/2020. ACCESSION NUMBER(S): [id number] ORDERING CLINICIAN: TOSHA BORJA FINDINGS: CARDIOMEDIASTINAL SILHOUETTE: Cardiomediastinal silhouette is normal in size and configuration. LUNGS: Lungs are clear of focal airspace disease or edema. No pneumothorax ABDOMEN: Elevation right hemidiaphragm again noted. BONES: Patient status post cervical spine fusion. IMPRESSION: 1. No active airspace disease. Elevation of the right hemidiaphragm and correlate with any concern for diaphragmatic dysfunction. Electronically signed by: Pedro PEDERSON MD Normal [facility] Established Visit (Neurosurg ariana)on 09-08-2021 [...] obvious instability (more content not included)... Normal [facility] No Panel Informationon 09-08 Normal [facility]-Neurosur [...] and T6-L4 Fusion. COMPARISON: None. ACCESSION NUMBER(S): [id number] ORDERING CLINICIAN: LEX FREDERICK FINDINGS: Fused PA [...] at her home and myself at [facility]. She mentions that overall she is [...] in Ms. LEE care. Lex Frederick MD, [facility], FAANS Director - Minimally Invasive Spine Surgery [facility] Technology Coordinator of Neurological Surgery [facility] [employer] [place], [place] Some of this note was completed using Fliiby voice recognition technology and sometimes the software [...] a L1 Vertbrectomy and T6-L4 Fusion with nm on 12/26/2020 and is status post 2 [...] the further treatment plan. Lex Frederick MD, [facility], FAANS Director - Minimally Invasive Spine Surgery [facility] Waiter/Waitress Cafeteria of Neurological Surgery [facility] [place], [place] Some of this note was completed using Fliiby voice recognition technology and sometimes the software [...] 10/28/2020 12:18:23 PM Current Meds Medication NameInstruction Clydeien CR 12.5 MG Oral Tablet Extended Release [...] Unspecified cord compression. COMPARISON: None. ACCESSION NUMBER(S): [id number] ORDERING CLINICIAN: LEX FREDERICK TECHNIQUE: Multiplanar and [...] spine. Electronically signed by: LENNY HAGER MD [facility] NR MRI L-SPINE WOon 12-12-19 NR MRI L-SPINE WO Patient Name: MORALES LEE STUDY: MRI L-SPINE WO; ; 12/11/2020 1:38 pm INDICATION: Lumbar Pain Scoliosis, unspecified Low back pain. COMPARISON: CT lumbar spine from 10/07/2020. MRI lumbar spine from 03/11/2016. ACCESSION NUMBER(S): [id number] ORDERING CLINICIAN: LEX FREDERICK TECHNIQUE: MRI of [...] multiple levels. This study was interpreted at [facility]. Electronically signed by: WESLEY CARBAJAL MD [facility] Initial Visit (Neurosurgery) on 10-28-2020 [...] LEE at the Neurosurgery Spine Clinic at [facility]. Ms. 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 She now has been having severe symptoms [...] evaluated by another spine surgeon at the [facility] who recommended urgent surgery for her [...] even walk (more content not included)... [facility] MORALES LEE ([id number]) 1975 F Date Time Provider Department 07/10/19 [...] Order(s):CONSULT TO ORTHOPAEDIC SURGERY [[id number]] Order #: [id number]: 1 Prescriptions as of 07/10/2019 Sig: LISINOPRIL [...] Status:Closed by DIXIE TEE MD on 07/10/19 [facility] [place] 07-09-2019 CNOV Office Visit (SPNSMN ) ----- MORALES LEE ([id number]) 1975 F Date Time Provider Department 07/09/19 9:30 AM STEVENSON QUAN SPNSMN During your visit today, we recorded the following information about you: Pulse Respiration Blood pressure Weight 89/minute 18/minute 124/74 95.8 kg Height 1.499 m Stevenson Quan MD 07/09/2019 2:56 PM Signed SPINE SURGERY OUTPATIENT CONSULT SERVICE DATE: 07/09/2019 PCP: No primary care provider on file. REFERRING PROVIDER: Dixie Tee MD [address] [facility] [address] Consult requested for an opinion regarding the [...] file Gets together: Not on file Attends adventism service: Not on file Active member of [...] patient or the patient?s personal sales representative cash registers. 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] Other Visit Diagnosis:Spinal stenosis of thoracic region [M48.04] Order(s):CT THORACIC SPINE WO IVCON [[id number]] Order #: [id number] FUTURE Prescriptions as of 07/09/2019 Sig: LISINOPRIL [...] Status:Closed by STEVENSON QUAN MD on 07/09/19 [facility] OBSOLETEon 07-09-2019 OBSOLETE Procedure (EMGMN) ----- MORALES LEE ([id number]) 1975 F Date Time Provider Department 07/09/19 [...] upper limb [G56.21] Order(s):EMG(NEURO/NI) [[id number]] Order #: [id number]: 1 Prescriptions as of 07/09/2019 Sig: LISINOPRIL [...] by JHON EASON MD on 07/09/19 Normal [facility] PROGRESSon 07-09-2019 PROGRESS HNO ID: [id number] Author: Stevenson Quan Service: ? Author Type: Physician Type: Progress Notes Filed: 07/09/2019 2:56 PM Note Text: SPINE SURGERY OUTPATIENT CONSULT SERVICE DATE: 07/09/2019 PCP: No primary care provider on file. REFERRING PROVIDER: Dixie Tee MD [address] [facility] [address] Consult requested for an opinion regarding the [...] file Gets together: Not on file Attends adventism service: Not on file Active member of [...] patient or the patient?s personal sales representative cash registers. The patient has elected to schedule surgery [...] 09, 2019 TIME: 10:24 AM PAGER: Normal [facility] OT-XR DEXA BONE DENSITY IMPO RTon 07-06-2019 OT-XR DEXA BONE DENSITY IMPORT Images were obtained outside of [facility] [id number] Normal [facility] CASE MGT INIT [facility] 2018 CASE MGT INIT [facility] HNO ID: [id number] Author: Kimberly (Rn) MERA Dunaway Service: ? Author Type: Registered Nurse Type: Care Mgt Initial Assessment Filed: 06/20/2019 12:25 PM Note Text: CARE MANAGEMENT: ASSESSMENT AND DISCHARGE PLAN SERVICE DATE: 06/20/2019 SERVICE TIME: 12:21 PM PRIMARY CARE PHYSICIAN: No primary care provider on file. 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 No Advance Directive: Current Advance Directive: None International Project Engineer Attempted to Assist with AD Completion: Yes [...] None Has the Patient Been in a Correction Facility in the Past 30 days? N/A SOCIAL: Living Arrangement: Home Lives With: Spouse Financial Resources: Disabled Primary Contact: Extended Emergency Contact Information Primary Emergency Contact: JesusLars Address: [facility] [address] [facility] [place] Relation: Spouse Supportive: Yes Other Important [...] 0 I feel financially burdened by my hvp-wk-hhfcvh expenses for my prescription medication: Disagree completely [...] with . Does not utilize any DME, intermediate or community resources. Has d/c transportation via . Anticipate transitional care plan of home, no skilled needs identified at this time. TCC will remain available to assist as needed with transition planning. SIGNATURE: Kimberly Dunaway RN PATIENT NAME: Morales Lee DATE: June 20, 2019 TIME: 12:21 PM PAGER/CONTACT #: [phone] Normal [facility] CBCon 06-20-2019 Erythrocyte distribution width (RBC) [Ratio] 12.6 % Normal 11.5-15.0 [facility] Comment on above: Performed By: #### C BC #### [place] [phone] Hematocrit (Bld) [Volume fraction] 48.7 % High 36.0-46.0 [facility] Comment on above: Performed By: #### C BC #### [place] [phone] Hemoglobin (Bld) [Mass/Vol] 16.8 g/dL High 11.5-15.5 [facility] Comment on above: Performed By: #### C BC #### [place] [phone] MCH (RBC) [Entitic mass] 31.1 pG Normal 26.0-34.0 [facility] Comment on above: Performed By: #### C BC #### [place] [phone] MCHC (RBC) [Mass/Vol] 34.5 g/dL Normal 30.5-36.0 [facility] Comment on above: Performed By: #### C BC #### [place] [phone] MCV (RBC) [Entitic vol] 90.0 fL Normal 80.0-100.0 [facility] Comment on above: Performed By: #### C BC #### [place] [phone] Platelet mean volume (Bld) [Entitic vol] 10.6 fL Normal 9.0-12.7 [facility] Comment on above: Performed By: #### C BC #### [place] [phone] Platelets (Bld) [#/Vol] 334 10*3/uL Normal 150-400 [facility] Comment on above: Performed By: #### C BC #### [address] [address] RBC (Bld) [#/Vol] 5.41 10*6/uL High 3.90-5.20 [facility] Comment on above: Performed By: #### C BC #### [address] [address] WBC (Bld) [#/Vol] 10.85 10*3/uL Normal 3.70-11.00 [facility] Comment on above: Performed By: #### C BC #### [place] [address] CONSULTon 06-20-2019 CONSULT HNO ID: [id number] Author: Evelyn Resendez Service: Pain Management Author [...] controlled substances - including suboxone - from [facility]. Of note, pt has followed once [...] now leaving AMA. 3. Will sign off _ SUBJECTIVE CHIEF [...] activity was identified. 06/20/2019 by Evelyn Resendez APRN.SERVICE STATION OPERATOR PAST MEDICAL HISTORY Diagnosis Date - [...] file Gets together: Not on file Attends adventism service: Not on file Active member of [...] 20, 2019 TIME: 8:24 AM PAGER/CONTACT #: [phone] (M-F 8-5) Normal [facility] CT BRAIN WO IVCONon 06-20-[address] BRAIN WO IVCON * * *Final Report* * * DATE OF EXAM: Jun 20 2019 1:31AM [facility] 0504 - CT BRAIN WO [...] No large cortical infarct or acute hemorrhage. Tick Sewer: ADITYA Transcribe Date/Time: Jun 20 2019 1:33A Dictated by : DAVONTE MOY MD This examination was interpreted and the report reviewed and electronically signed by: DAVONTE MOY MD on Jun 20 2019 1:35AM EST [id number] [facility] ECG COMPLETEon 06-20-2019 ECG COMPLETE NAME : MORALES LEE PID : [id number] : 1975 Gender : Female Race : ORD : [id number] Procedure Date : Jun 19 2019 23:57:03 Edit Date : Jun 20 2019 07:51:18 Diagnosis:Sinus rhythm Normal ECG no STEMI 1200a Confirmed by MD CORBY, MAYI ([id number]), science editor IVANNA WALTON ([id number]) on 06/20/2019 7:51:18 AM Ventricular Rate : 85 BPM Atrial Rate : 85 BPM P-R Interval : 137 ms QRS Duration : 91 ms Q-T Interval : 365 ms QTC Calculation(Bazett) : 434 ms P Lavon : 51 degrees R Lavon : -13 degrees T Lavon : 61 degrees Test Reason : Chest Pain Location : 302 : ED AVED-1 Overread By : MD ARREDONDO LISA Edited By : IVANNA WALTON Referred By : , Acquired by : [id number], [facility] ED NOTEon 06-20-2019 ED NOTE HNO ID: [id number] Author: Yuki Mckenzie) MERA Cruz Service: ? Author Type: Registered Nurse Type: ED Notes Filed: 06/20/2019 1:40 AM Note Text: Patient got CT, it is still pending and Jessie BONITA said ok to transfer to [place] with out results pending. Patient agreeing and understanding of transfer. updated on POC and transfer via telephone. DM here to take patient at this time. Pain is not improved at time of transfer. [facility] ED NOTE HNO ID: [id number] Author: Yuki Cruz RN Service: ? Author Type: Registered Nurse Type: ED Notes Filed: 06/20/2019 1:15 AM Note Text: Clean catch urine specimen obtained and sent. [facility] ED NOTE HNO ID: [id number] Author: Yuki Cruz RN Service: ? Author [...] time with getting transferred to another facility. [facility] ED NOTE HNO ID: [id number] Author: Yuki Cruz RN Service: ? Author Type: Registered Nurse Type: ED Notes Filed: 06/20/2019 3:28 AM Note Text: Patient stated Valium did not help. She continues to be in pain and upset. She wanted to speak with someone in charge and update on POC. Normal [facility] HISTORY PHYSICALon 9 HISTORY PHYSICAL HNO ID: [id number] Author: Talita Wesley RN Service: General Internal [...] tightness that is constant. Notices a decreased student support services director strength and weakness in left hand. She [...] and refill of this medication. Current 1 09/06 PPD for about 20 years. Denies history [...] pressure, palpitations, leg swelling. Denies hx of [place]. GI: Denies nausea, vomiting, diarrhea, abdominal pain, [...] rotation 40/80% Decreased left C5-C7 sensation. Left student support services director strength 2/5. Right student support services director strength 5/5. UE DTR intact and equal. [...] tightness into left arm, weak left hand student support services director strength, and worsening severity of numbness/tingling -Afebrile [...] confirmed with patient pharmacy. Patient uses [email or web address] in [place], [place]. Patient provided #[phone]. Will call in am to confirm dose. Nicotine Abuse Assessment AND Plan: Smokes 1 1/2 PPD for 20 years. Smoking cessation advised. Nicotine patch ordered. Medication and Non-Pharmacologic VTE Prophylaxis/Anticoagulant s VTE Prophylaxis: VTE prophylaxis appropriate SIGNATURE: Talita Wesley APRN.CNP PATIENT NAME: Morales Lee DATE: June 20, 2019 TIME: 2:58 AM PAGER/CONTACT #: [facility] # [phone] [facility] NURSING PROGon 06-20-2019 NURSING PROG HNO ID: [id number] Author: Austyn (Rn) MERA Berumen Service: Nursing Author Type: Registered Nurse Type: Nursing Progress Note Filed: 06/20/2019 3:10 PM Note Text: Nursing Progress Note Patient Name: Morales Lee Patient Location: [id number] -02 Daily Note:06/20/2019 -pt is upset regarding [...] note was completed by: AUSTYN BERUMEN RN [facility] NURSING PROG HNO ID: [id number] Author: Austyn WilksRn) MERA Berumen Service: Nursing Author Type: Registered Nurse Type: Nursing Progress Note Filed: 06/20/2019 8:10 AM Note Text: Nursing Progress Note Patient Name: Morales Lee Patient Location: [id number]-4561 -02 Daily Note:06/20/2019 -assumed care of patient, pt is requesting her suboxone. We have to call to verify dosage. -MERA Acosta called pharmacy provided by night COMPUTER ARCHITECT and the pharmacy does not open until 9am. We will call back to verify dose later. -Dr. Kwon called to speak with this RN, he will be in to see the patient later today. This note was completed by: AUSTYN BERUMEN RN [facility] NURSING PROG HNO ID: [id number] Author: Guadalupe WilksRn) MERA Herbert Service: ? Author Type: Registered Nurse Type: Nursing Progress Note Filed: 06/20/2019 4:33 AM Note Text: Nursing Progress Note Patient Name: Morales Lee Patient Location: [id number]-3352 -02 Daily Note:DACIAO x 3. C/O left hand [...] note was completed by: Guadalupe Herbert RN [facility] PROGRESSon 06-20-2019 PROGRESS HNO ID: [id number] Author: Sedrick Martin Service: General Internal Medicine [...] rales. Cor:RSR, no murmurs. 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 MEDICAL LIBRARIAN; as noted on admission. DATA: Diagnostic tests [...] VTE Prophylaxis/Anticoagulant s 06/20/19399 pneumatic compression stockings (hi,ia) 06/20/19399 activity - mobilize patient ([place]) VTE Prophylaxis: appropriate SIGNATURE: Sedrick Martin MD PATIENT NAME: Morales Lee DATE: June 20, 2019 TIME: 10:41 AM PAGER: Normal [facility] PROGRESS HNO ID: [id number] Author: Sedrick Martin Service: General Internal Medicine Author Type: Physician Type: Progress Notes Filed: 06/20/2019 8:25 AM Note Text: As per Pain Management Consult still pending, I was notified by Pain Management to resume the pt.' s home Suboxone dosage until pt. Seen later today. Normal [facility] Troponin Ton 06-20-2019 Troponin T.cardiac [Mass/Vol] ug/L Normal 0.000-0.[address] [place] [address] Comment on above: Performed By: #### T NT #### [facility] [address] [place] [address] Troponin T.cardiac [Mass/Vol] ug/L Normal 0.000-0.[address] [place] [address] Comment on above: Performed By: #### T NT #### [place] [id number] [place] [phone] Basic Metabolic Panlon 06-19 Anion gap [Moles/Vol] 14 mmol/L Normal 9-18 [facility] Calcium [Mass/Vol] 10.3 mg/dL High 8.5-10.2 [facility] Chloride [Moles/Vol] 96 mmol/L Low 97-105 [facility] CO2 [Moles/Vol] 29 mmol/L Normal 22-30 [facility] Creatinine [Mass/Vol] 0.59 mg/dL Normal 0.58-0.96 [facility] eGFR- Amer. >60 Normal [facility] GFR/1.73 sq M predicted among non-blacks MDRD (S/P/Bld) [Vol rate/Area] mL/min/{1.73_m2} Normal [facility] Comment on above: Result Comment: eGFR [...] GFR. Glucose [Mass/Vol] 114 mg/dL High 74-99 [facility] Comment on above: Result Comment: The [...] 1). Potassium [Moles/Vol] 3.7 mmol/L Normal 3.7-5.1 [facility] Sodium [Moles/Vol] 139 mmol/L Normal 136-144 [facility] Urea nitrogen [Mass/Vol] 7 mg/dL Normal 7-21 [facility] CBC and Differentialon 06-19 Abs Baso 0.09 k/uL Normal <0.11 [facility] Abs [place] 0.61 k/uL Normal <0.87 [facility] Abs Neut 7.56 k/uL High 1.45-7.50 [facility] Absolute nRBC <0.01 Normal <0.01 [facility] Basophils/100 WBC (Bld) 0.7 % Normal [facility] DTYPE Auto Diff Normal [facility] Eosinophils (Bld) [#/Vol] 0.25 10*3/uL Normal <0.46 [facility] Eosinophils/100 WBC (Bld) 1.9 % Normal [facility] Erythrocyte distribution width (RBC) [Ratio] 12.0 % Normal 11.5-15.0 [facility] Hematocrit (Bld) [Volume fraction] 52.6 % High 36.0-46.0 [facility] Hemoglobin (Bld) [Mass/Vol] 18.0 g/dL High 11.5-15.5 [facility] Lymphocytes (Bld) [#/Vol] 4.67 10*3/uL High 1.00-4.00 [facility] Lymphocytes/100 WBC (Bld) 35.4 % Normal [facility] MCH (RBC) [Entitic mass] 30.0 pG Normal 26.0-34.0 [facility] MCHC (RBC) [Mass/Vol] 34.2 g/dL Normal 30.5-36.0 [facility] MCV (RBC) [Entitic vol] 87.7 fL Normal 80.0-100.0 [facility] Monocytes/100 WBC (Bld) 4.6 % Normal [facility] Neutrophils/100 WBC (Bld) 57.4 % Normal [facility] NRBCs 0.0 /100 WBC Normal 0 [facility] Platelet mean volume (Bld) [Entitic vol] 10.1 fL Normal 9.0-12.7 [facility] Platelets (Bld) [#/Vol] 370 10*3/uL Normal 150-400 [facility] RBC (Bld) [#/Vol] 6.00 10*6/uL High 3.90-5.20 [facility] WBC (Bld) [#/Vol] 13.18 10*3/uL High 3.70-11.00 [facility] ED NOTEon 06-19-2019 ED NOTE HNO ID: [id number] Author: Yuki Mckenzie) MERA Cruz Service: ? Author Type: Registered Nurse Type: ED Notes Filed: 06/20/2019 3:27 AM Note Text: Patient has requested valium, she says that she takes it at home. Biago updated. [facility] ED NOTE HNO ID: [id number] Author: Yuki Mckenzie) MERA Cruz Service: ? Author Type: Registered Nurse Type: ED Notes Filed: 06/20/2019 3:27 AM Note Text: Patient is complaining of nausea. She is requesting her saboxon as well and Biago was updated on request. [facility] ED NOTE HNO ID: [id number] Author: Yuki Mckenzie) MERA Cruz Service: ? Author Type: Registered Nurse Type: ED Notes Filed: 06/19/2019 7:54 PM Note Text: Said that after her surgery in 2016 her left pinky and ring finger are numb but she said lately her other fingers on that hand have been getting numb as well. [facility] ED NOTE HNO ID: [id number] Author: Vanessa WilksRnElisabeth Ruiz RN Service: ? Author Type: Registered Nurse Type: ED Notes Filed: 06/19/2019 6:48 PM Note Text: Patient has chronic neck pain for three years. Saw spine doctor 06/12/2019 for the same had x rays. Denies any new injury. States pain goes into left arm. Arrived via wheelchair [facility] ED PROV NOTEon 06-19-2019 ED PROV NOTE HNO ID: [id number] Author: Mayi Arredondo Service: Emergency Medicine Author Type: Physician [...] light touch over bilateral lower extremities. 3/5 student support services director, bicep, tricep strength over LUE. Decreased sensation to light touch over left upper extremity in median, radial, and ulnar nerve distribution. 5/5 student support services director, bicep, tricep strength of R UE. Skin: [...] neurosurgical consult as previous notes from her health information specialist recommend obtaining EMG and possible further [...] a neurosurgical consult she warrants transfer to [facility] for further management of her condition. We have low suspicion for stroke at this time as pain appears to be radicular in nature and she has had worsening progression of her symptoms with documented notes from spine (Dr. Álvarez) suggesting this worsening pain and numbness. The SERVICE STATION OPERATOR, Talita, at [facility] recommended we obtain a CT brain and she must rule out any acute intercranial abnormality that may be contributing to the patient's symptoms. Therefore, this study was ordered and will be followed up by the night team especially if there is any acute intracranial abnormality. As long as there is no acute intracranial abnormality she will be transferred to [facility] for further evaluation and management of her condition. Patient voiced understanding was in agreement with the above plan. This patient's case was discussed with Dr. Arredondo who personally evaluated the patient supervised her care. The patient was TRANSFERRED to: [facility] Condition at time of disposition: stable SIGNATURE: NORMA Montgomery (Pa) 06/20/19 0026 Attending Note I have personally performed a face to face assessment of the patient and have reviewed the PA/ENTERPRISE PROJECT MANAGER note. My schofield findings include: History is [...] of 5 strength left upper extremities in student support services director strength as well as biceps and triceps [...] worsening neck pain we will place her [facility] observation for cardiac rule out as well [...] and requested by the observation provider at [facility] as they were concerned about stroke. However I doubt this and did not feel this was necessary however it is currently pending and patient will be transferred to [facility] if this is unremarkable. Signature: Mayi Arredondo DO Date: 06/20/2019 Time: 12:26 AM Mayi Arredondo 06/20/19 0033 Normal [facility] Magnesiumon 06-19-2019 Magnesium [Mass/Vol] 2.0 mg/dL Normal 1.7-2.3 [facility] Troponin Ton 06-19-2019 Troponin T.cardiac [Mass/Vol] ug/L Normal 0.000-0.02 9 [facility] CNOVon 06-12-2019 CNOV Office Visit (SPNMMN ) ----- MORALES LEE ([id number]) 1975 F Date Time Provider Department 06/12/19 [...] file Gets together: Not on file Attends adventism service: Not on file Active member of [...] [Z98.890] Order(s):PATIENT PLACED ON SPINE CARE PATH [1172011] Order #: [id number]: 1 XR SCOLIOSIS PA STAND/LAT 2V [[id number]] Order #: [id number] FUTURE EMG(NEURO/NI) [[id number]] Order #: [id number]: 1 FUTURE CONSULT TO SPINE SURGERY [[id number]] Order #: [id number]: 1 FUTURE Prescriptions as of 06/12/2019 Sig: [...] Status:Closed by DIXIE TEE MD on 06/12/19 [facility] PROGRESSon 06-12-2019 PROGRESS HNO ID: [id number] Author: Zoey Aponte (Rt) Robert Trejo Service: Radiology Author Type: Dog Day Care Attendant Type: Progress Notes Filed: 06/12/2019 10:10 [...] RT Daxa June 12, 2019 10:09 AM [facility] PROGRESS HNO ID: [id number] Author: Dixie Tee Service: ? Author Type: [...] file Gets together: Not on file Attends adventism service: Not on file Active member of [...] healed incisions. Chest: symmetric expansion Data Review: [facility] records reviewed Care everywhere Lumbar CT [...] June 12, 2019 TIME: 8:12 AM Normal [facility] XR SCOLIOSIS 2V PA STAND/LAT on 06-12-2019 [...] changes and multilevel compression deformities as described. Tick Sewer: PSCB Transcribe Date/Time: Jun 12 2019 4:36P Dictated by : CAROLINA MOJICA MD This examination was interpreted and the report reviewed and electronically signed by: CAROLINA MOJICA MD on Jun 12 2019 4:39PM EST [id number] Normal [facility] PROGRESSon 05-14-2019 PROGRESS HNO ID: [id number] Author: Laury Levin Service: ? Author Type: Physician Life Sciences Manager Type: Progress Notes Filed: 05/14/2019 1:26 PM Note Text: Patient reports difficulty walking, using the hands and ring finger and pinky finger on left hand numb. Has tried NSAIDS, muscle relaxants. Imaging reports describe chronic T12 compression fracture. Previous C6-7 fusion without any mentioned neural compression. Will have patient scheduled with CARLENE for work up. May need EMG to rule out cubital tunnel syndrome. Normal [facility] PROGRESSon 05-09-2019 PROGRESS HNO ID: [id number] Author: Kathia Kelly Service: ? Author Type: ? Type: Progress Notes Filed: 05/14/2019 1:26 PM Note Text: Patient name: Morales Lee Are you being referred by a [facility] Provider or Pain Management Provider at [facility]? No If answer is YES please schedule directly with surgeon, triage does not need to be completed. Is this a self-referral No If not, who is the Referring Provider: Dr. Hendricks/ [facility] MRI/CT/myelogram within 12 months: Yes If No , please refer to medical spine or PCP to complete above imaging, triage does not need to be completed Imaging viewable in Epic: No If not, please provide [phone] to fax in imaging reports for review. [...] will fax imaging report and op notes. [phone] [facility] [address]-CT C-SPINE WO CON IMPORTo n 02-13-2019 CT-CT C-SPINE WO CON IMPORT Images were obtained outside of [facility] [id number] Normal [facility] CT-CT L-SPINE WO CON IMPORTo n 02-13-2019 CT-CT L-SPINE WO CON IMPORT Images were obtained outside of [facility] [id number] Normal [facility] Vital Signs Date Time Vital Sign Value Performing Clinician Facility 10-01-2024 16:15-0500 Diastolic blood pressure 79 mm[Hg] Greyson Robertson DO Work Phone: [facility] [employer] 10-01-2024 16:15-0500 Heart rate 68 /min [facility] 10-01-2024 16:15-0500 Respiratory rate 14 /min Greyson Robertson DO Work Phone: [facility] 10-01-2024 16:15-0500 SaO2% (BldA) [Mass fraction] 96 % Greyson Robertson DO [facility] 10-01-2024 16:15-0500 Systolic blood pressure 120 mm[Hg] Greyson Robertson DO Work Phone: [facility] 10-01-2024 08:16-0500 Body temperature 98.01 [degF] Greyson Robertson DO Work Phone: [facility] 10-01-2024 00:23-0500 Body height 152.4 cm Greyson Robertson DO Work Phone: [facility] 10-01-2024 00:23-0500 Body mass index (BMI) [Ratio] 37.89 kg/m2 Greyson Robertson DO Work Phone: [facility] 10-01-2024 00:23-0500 Body weight 88 kg Greyson Robertson DO Work Phone: [facility] 05-14-2024 09:48-0400 Body height 157.5 cm Genny Orosco COMPUTER ARCHITECT Work Phone: [facility] 05-14-2024 09:48-0400 Body mass index (BMI) [Ratio] 34.75 kg/m2 Genny Orosco COMPUTER ARCHITECT Work Phone: [facility] 05-14-2024 09:48-0400 Body temperature 96.69 [degF] Genny Orosco COMPUTER ARCHITECT Work Phone: [facility] 05-14-2024 09:48-0400 Body weight 86.18 kg Genny Orosco COMPUTER ARCHITECT Work Phone: [facility] 05-14-2024 09:48-0400 Diastolic blood pressure 54 mm[Hg] Genny Orosco COMPUTER ARCHITECT Work Phone: [facility] 05-14-2024 09:48-0400 Heart rate 72 /min Genny Orosco COMPUTER ARCHITECT Work Phone: [facility] 05-14-2024 09:48-0400 Systolic blood pressure 104 mm[Hg] Genny Orosco COMPUTER ARCHITECT Work Phone: [facility] 06-07-2022 12:48-0400 Diastolic blood pressure 83 mm[Hg] No Pcp Required [facility] 06-07-2022 12:48-0400 Heart rate 67 /min No Pcp Required [facility] 06-07-2022 12:48-0400 Respiratory rate 16 /min No Pcp Required [facility] 06-07-2022 12:48-0400 SaO2% (BldA) [Mass fraction] 96 % No Pcp Required [facility] 06-07-2022 12:48-0400 Systolic blood pressure 148 mm[Hg] No Pcp Required [facility] 01-06-2022 10:51-0400 Blood Pressure Location NATALIA MANNING [facility] 01-06-2022 10:51-0400 Diastolic blood pressure 86 mm[Hg] NATALIA MANNING [facility] 01-06-2022 10:51-0400 Heart rate 86 /min NATALIA MANNING [facility] 01-06-2022 10:51-0400 Respiratory rate 16 /min NATALIA MANNING [facility] 01-06-2022 10:51-0400 Systolic blood pressure 132 mm[Hg] NATALIA MANNING [facility] 09-08-2021 14:15-0500 Body height 149.86 cm No PCP None [facility]- Ah uja Work Phone: 09-08-2021 14:15-0500 Body mass index (BMI) [Ratio] 36.96 kg/m2 No PCP None FO-Wzxykclmkhka-Ng uja Work Phone: 09-08-2021 14:15-0500 Body surface area Derived from formula 1.78 m2 No PCP None II-Jqrmuwjaekzo-Lm uja Work Phone: 09-08-2021 14:15-0500 Body weight 83.01 kg No PCP None [facility]- [facility] Work Phone: 09-08-2021 14:15-0500 Diastolic blood pressure 68 mm[Hg] No PCP None JH-Iqnjnwxnogjd-Hd uja Work Phone: 09-08-2021 14:15-0500 Heart rate 96 /min No PCP None [facility]- [facility] Work Phone: 09-08-2021 14:15-0500 Respiratory rate 16 /min No PCP None [facility] -Ah [facility]ja Work Phone: 09-08-2021 14:15-0500 Systolic blood pressure 115 mm[Hg] No PCP None PJ-Eauawweraiuz-Rn uja Work Phone: 09-08-2021 14:15-0500 0 1 No PCP None [facility]- Ah uja Work Phone: Comment on above: [employer] 01-01-2021 16:46-0400 Heart rate 111 /min No Pcp Required [facility] 01-01-2021 16:46-0400 SaO2% (BldA) [Mass fraction] 95 % No Pcp Required [facility] 01-01-2021 14:00-0400 Body temperature 96.8 [degF] No Pcp Required [facility] 01-01-2021 14:00-0400 Diastolic blood pressure 77 mm[Hg] No Pcp Required [facility] 01-01-2021 14:00-0400 Respiratory rate 18 /min No Pcp Required [facility] 01-01-2021 14:00-0400 Systolic blood pressure 114 mm[Hg] No Pcp Required [facility] Encounters Encounter Date Encounter Type Care Provider Facility Start: 12-25-2024 End: 12-25-2024 ambulatory Deirdre L Amari Facility:[facility] Start: 12-25-2024 End: 12-25-2024 Lab Drop off Deirdre L Amari [facility] Start: 12-14-2024 ambulatory INSURANCE VERIFICATION REP Deirdre L Amari Facil ity:[facility] Start: 12-12-2024 End: 12-12-2024 ambulatory INSURANCE VERIFICATION REP Deirdre L Amari Facility:[facility] Start: 12-12-2024 End: 12-12-2024 Lab Drop off Deirdre L Amari [facility] Start: 12-12-2024 End: 12-12-2024 ambulatory INSURANCE VERIFICATION REP Deirdre L Amari Facility:[facility] Start: 12-05-2024 End: 12-05-2024 ambulatory INSURANCE VERIFICATION REP Deirdre L Amari Facility:[facility] Start: 11-28-2024 End: 11-28-2024 ambulatory INSURANCE VERIFICATION REP Deirdre L Amari Facility:[facility] Start: 11-23-2024 ambulatory Armando Wilder acility:[facility] Start: 11-01-2024 ambulatory INSURANCE VERIFICATION REP Deirdre Amari Facilit y:[facility] Start: 10-31-2024 End: 10-31-2024 ambulatory INSURANCE VERIFICATION REP Deirdre L Amari Facility:[facility] Start: 10-30-2024 End: 10-30-2024 Office outpatient visit 10 minutes Lex Frederick MD Work Phone: [facility] Lorene Marino Comment on above: S/P spinal fusion Start: 10-30-2024 End: 10-30-2024 ambulatory [facility] Start: 10-16-2024 End: 10-16-2024 ambulatory Richardson Craig Facility:[facility] Start: 10-08-2024 End: 10-23-2024 Pre-admission assessment LEX FREDERICK [facility] Start: 09-30-2024 End: 10-01-2024 ambulatory SHAIKH BIN [facility] Start: 09-30-2024 End: 10-01-2024 Emergency department patient visit Greyson Robertson Work Phone: [facility] Comment on above: Generalized weakness (Primary Dx); Chronic bilateral low back pain, unspecified whether sciatica present; Chronic thoracic back pain, unspecified back pain laterality; Encounter for screening involving social determinants of health (SDoH) Start: 09-01-2024 End: 09-01-2024 ambulatory Shaikh Bin Facility:[facility] Start: 09-01-2024 Encounter for other preprocedural examination Shaikh Bin [facility] Start: 09-01-2024 End: 09-04-2024 Clinisync Result Encounter Generic External Data Provider [facility] External Department Unsolicited Start: 09-01-2024 End: 09-03-2024 External Result Encounter Shaikh Bin HARKINS Work Phone: [facility] External Department Unsolicited Start: 09-01-2024 End: 09-04-2024 External Result Encounter Shaikh Bin HARKINS Work Phone: [facility] External Department Unsolicited [...] 06-08-2024 End: 06-08-2024 [facility] Start: 05-14-2024 End: 05-14-2024 Evelyn Orosco NP Work Phone: [facility] Start: 05-14-2024 End: 05-22-2024 Clinisync Result Encounter Genny Orosco COMPUTER ARCHITECT Work Phone: [facility] External Department Unsolicited Start: 05-14-2024 End: 05-22-2024 Clinisync Result Encounter Genny Orosco COMPUTER ARCHITECT Work Phone: [facility] External Department Unsolicited Start: 05-14-2024 End: 05-14-2024 ambulatory GENNY OROSCO Not Available Start: 05-14-2024 End: 05-14-2024 Office outpatient visit 15 minutes Genny Orosco COMPUTER ARCHITECT Work Phone: [facility] Comment on above: Intrinsic sphincter deficiency (ISD) (Primary Dx); Psychophysiological insomnia; Encounter for medication management; Dependence on wheelchair; Pressure injury of skin of buttock, unspecified injury stage, unspecified laterality Start: 05-02-2024 End: 05-03-2024 Telephone encounter Jessie MESA Work Phone: [facility] Start: 04-24-2024 End: 04-24-2024 Refill Genny Orosco COMPUTER ARCHITECT Work Phone: [facility] Comment on above: Chronic low back hina n, unspecified back pain laterality, unspecified whether sciatica present Start: 03-27-2024 End: 03-31-2024 Pre-admission assessment LEX FREDERICK [facility] Start: 03-26-2024 End: 10-27-2024 Pre-admission assessment LEX FREDERICK [facility] Start: 02-13-2024 End: 02-13-2024 ambulatory SHAIKH IBN Not Available Start: 11-01-2023 End: 11-01-2023 ambulatory SHAIKH BIN Not Available Start: 10-10-2023 Orders Only Shaikh Bin HARKINS Work Phone: [facility] Comment on above: Chronic low back hina n, unspecified back pain laterality, unspecified whether sciatica present (Primary Dx); Nausea in adult Start: 06-02-[address] Lex Frederick Facility:[id number] Start: 01-15-2023 End: 01-15-2023 ambulatory LALI BENITEZ Facility:[facility] Start: 01-13-2023 End: 01-13-2023 ambulatory IVON LAWS . Facility:[facility] Start: 12-22-2022 End: 12-22-2022 ambulatory SHAIKH Shirley OBRIEN Facility:[facility] Start: 12-08-2022 AUDIT No PCP None [facility] [address] [place] Work Phone: Start: 12-08-2022 Chart Update No PCP None [facility] [address] [place] Work Phone: Start: 11-26-2022 End: 11-26-2022 Patient encounter procedure Guillermina Bingham [facility] Start: 11-22-2022 ambulatory SHAIKH Shirley OBRIEN Facilit y:[facility]1 Start: 11-09-2022 End: 11-09-[address] DEVANTE Rojas Facility:[facility] Start: 10-15-2022 End: 10-15-2022 ambulatory KYRA SILVA . Facility:[facility] Start: 09-24-2022 End: 09-24-2022 Patient encounter procedure Guillermina Bingham [facility] Start: 09-01-2022 Encounter for preprocedural laboratory examination GUILLERMINA BINGHAM . [facility] Start: 08-25-2022 End: 08-25-2022 ambulatory SHAIKH Shirley OBRIEN Facility:[facility]1 Start: 08-24-2022 End: 08-25-2022 ambulatory SHAIKH Shirley OBRIEN Facility:[facility]1 Start: 08-24-2022 End: 08-25-2022 Encounter for preprocedural laboratory examination SHAIKH Shirley OBRIEN Facility:[facility]1 Start: 08-21-2022 ambulatory SHAIKH Shirley OBRIEN Facilit y:H1 Start: 07-16-2022 End: 07-16-2022 Patient encounter procedure Guillermina Bingham [facility] Start: 06-06-2022 End: 06-07-2022 Emergency department patient visit Yony Aguirre [facility] Adult ED Blue 45 Start: 05-31-2022 End: 05-31-[address] MICHAEL SORIA . Facility:H1 Start: 05-19-2022 End: 05-19-2022 Off-Site Guillermina Bingham [facility] [place] Start: 05-07-2022 End: 05-07-2022 ambulatory SHAIKH Shirley OBRIEN Facility:[facility]1 Start: 04-08-2022 End: 04-08-[address] ABHINAV WEBB Facility:[facility]1 Start: 03-30-2022 End: 03-31-[address] CLIF HUTTON Facility:[facility]1 Start: 03-07-2022 End: 03-07-[address] ABHINAV WEBB Facility:H1 Start: 03-06-2022 End: 03-06-2022 ambulatory SHAIKH Shirley OBRIEN Facility:[facility]1 Start: 02-21-2022 End: 02-21-2022 ambulatory IVON LAWS . Facility:[facility]1 Start: 02-10-2022 ambulatory GUILLERMINA BINGHAM . Facility: H1 Start: 02-04-2022 End: 02-04-2022 Off-Site Guillermina Bingham [facility] Start: 01-11-2022 Chart Update No PCP None [facility] [place] Work Phone: Start: 01-11-2022 End: 01-11-2022 Patient encounter procedure Guillermina AponteCrystal Bingham [facility] Start: 01-07-2022 AUDIT No PCP None [facility]Neurosu [facility] [address] Work Phone: Start: 01-06-2022 End: 01-06-2022 Patient encounter procedure NATALIA MANNING [facility] [place] Start: 10-13-2021 AUDIT No PCP None [facility] Work Phone: Start: 09-29-2021 AUDIT No PCP None [facility]astroe [facility]terology-[facility] [place] [facility] Work Phone: Start: 09-15-2021 End: 10-02-2021 Evaluation and management of inpatient Dr. LEX FREDERICK Facility:[facility] Start: 09-09-2021 AUDIT No PCP None [facility] Work Phone: Start: 09-08-2021 Office outpatient vi sit 40 minutes No PCP None JY-Fonvfipxpszk-Yqjea Work Phone: Start: 05-05-2021 Postop follow up vis it related to original px No PCP None FM-Tydpazwsxhvl-JTJSP Work Phone: Start: 12-26-2020 End: 01-01-2021 Evaluation and management of inpatient Lex Frederick [facility] TT04 Rm [id number] Preoperative state No PCP None [facility] Work Phone: Procedures Date Procedure Procedure Detail [...] Culture bacterial quanttative colony count urine Shaikh Bin HARKINS Work Phone: Start: 09-01-2024 BLOOD CULTURE [...] direct optical obs pr date Genny Orosco COMPUTER ARCHITECT Work Phone: Start: 05-14-2024 COMPLIANCE DRUG ANAL YSIS, UR Genny Munozzpatrick COMPUTER ARCHITECT Work Phone: Start: 09-21-[address] EFRAIN FREDERICK Comment on above: Performed By: #### A FPA3 #### [facility] [address] [place] [address] Start: 09-21-[address] EFRAIN FREDERICK Comment on above: Order Comment: CUADRA D MERA ESPINO, 09/21/2021 05:08TEST TYPE + SCREEN WAS CANCELLED, 09/21/2021 05:06 NO PHLEB ID ON TUBE. Result Comment: CALL ED MERA ESPINO, 09/21/2021 05:08 Performed By: #### A FPA3 #### [facility] [address] [place] [address] Start: 09-17-[address] EFRAIN FREDERICK Comment on above: Performed By: #### T +S #### [facility] [address] [place] [address] Start: 12-27-2020 End: 12-28-2020 Release Blood Product-Packed [...] Td Vaccines (2 - Td or Tdap) [facility] Start: 02-21-2030 DTaP/Tdap/Td Vaccine s (2 - Td or Tdap) DTaP/Tdap/Td Vaccines (2 - Td or Tdap) [facility] Start: 10-30-2024 End: 10-30-2025 X-ray scoliosis 2 View (NON EOS) X-ray scoliosis 2 View (NON EOS) Imaging Routine S/P spinal fusion Expected: 10/30/2024, Expires: 10/30/2025 [facility] Service Area Work Phone: Comment on above: Expected: 10/30/2024 , Expires: 10/30/2025 Start: 06-13-2024 End: 06-13-2024 Patient encounter procedure 06/13/2024 9:20 AM EDT Office Visit [facility] [address] [place] [address] Lian Greer, STRATEGIES ANALYST-SERVICE STATION OPERATOR [id number] [place] [address] [facility] Start: 05-14-2024 End: 05-14-2024 Patient encounter procedure 05/14/2024 9:30 AM EDT Office Visit [facility] [address] [place] [phone] Genny Orosco NP [address] [place] [phone] [facility] Start: 05-06-2024 COVID-19 Vaccine ( season) COVID-19 Vaccine ( season) [facility] Start: 05-06-2024 Influenza vaccination N [facility] Start: 10-17-2023 End: 10-17-2023 Patient encounter procedure 10/17/2023 6:30 PM EST Office Visit [facility] [address] [place] [phone] Shaikh Obrien MD [address] [place] [id number] [facility] Start: 2023 Administration of varicella zoster vaccine Zoster (Shingles) Vaccine (1 of 2) [facility] Start: 2023 Pneumococcal vaccination Pneum ococcal Vaccine (1 of 1 - PCV) [facility] Start: 2023 Zoster Vaccines (1 of 2) Zoste r Vaccines (1 of 2) [facility] Start: 05-06-2023 Influenza vaccination Influenza Vacc ine (#1) [facility] Start: 11-03-2021 POV, Provider: Lex Frederick, Status: Pen, Time: 2:00 PM POV, Provider: Lex Frederick, Status: Pen, Time: 2:00 PM LF-Fzixvvdpedyxbtxh-U shellie 6 [facility] Work Phone: Start: 10-07-2021 Admission to [facility] RNVISIT, Provider: NURSE VISIT ASHLEY 5TH,MGNEUROSURGERY, Status: Pen, Time: 10:15 AM QA-Vqetfwfzaluxelaq-H shellie [facility] Work Phone: Start: 09-18-2021 [facility] Provider: Lex Frederick, Status: Pen, Time: 8:00 AM [facility], Provider: Lex Frederick, Status: Pen, Time: 8:00 AM TI-Ofwvqxhcpuul-Yfxxz Work Phone: Start: 01-08-2021 Patient encounter procedure Neurosurgery [facility] Start: 12-31-2020 End: 01-01-2022 [facility] Comment on above: please place at beds geraldine for drain removal Start: 12-26-2020 End: 12-27-2021 Naloxone Injectable 0.4 mg IntraVenous Push Once ; (NARCAN)DOSE = 0.2 mg IntraVenous Push Once, PRN patient is unarousable, and respiratory rate lessClinician Notes: HOLD FISH WARDEN Infusion and notify H.O. immediately Start: 26-Dec-2020 End: 26-Dec-2021 Ordered: 26-Dec-2020 Nabil Awan Intent Comments: HOLD FISH WARDEN Infusion and notify H.O. immediately [facility] Comment on above: HOLD FISH WARDEN Infusion an d notify H.O. immediately Start: 2013 Screening for malign ant neoplasm of breast M[facility] Start: 2003 Screening for malign ant neoplasm of cervix [facility] Start: 1994 Screening for malign ant neoplasm of cervix [facility] Start: 1992 Hepatitis B Vaccines (1 of 3 - + 3-dose series) Hepatitis B Vaccines (1 of 3 - + 3-dose series) [facility] Start: 1991 Adult BMI Screening Adult BMI Screen ing [facility] Start: 1991 Hepatitis C screening Hepatitis C Sc [facility] Start: 1985 Depression Screening Depression Scre ening [facility] Start: 1985 Tobacco Screening Tobacco Screening [facility] Start: 1974 MMR Vaccines (1 of 1 - Standard series) MMR Vaccines (1 of 1 - Standard series) [facility] Start: 1973 HIV screening HIV Screening [facility] Start: 1973 Lipid panel Lipid Panel [facility] Start: 1973 Screening for malign ant neoplasm of colon [facility] Start: 1973 Yearly Adult Physical Yearly Adult P hysical [facility] Bacteria identified in Urine by [...] diphtheria toxoid, and acellular pertussis vaccine, adsorbed Guillermina Bingham [facility] 12-05-2018 hepatitis A vaccine, adult dosage Guillermina Lue [facility] Payers Date Payer Category Payer Self-pay [facility] [id number] 2021 [employer] P [id number] 2012 [employer] - O ANTHEM [id number] 2012 Unknown 1973 Unknown [id number] 2..840.1.095186.3.579. 2.356 1973 Unknown [id number] ..840.1.247683.3.579. 2.356 1973 Unknown [id number] 2.16.840.1.875179.3.579. 2.593 1973 Unknown [id number] 2.16.840.1.574994.3.579. 2.593 1973 Unknown [id number] 2.16.840.1.322459.3.579. 2.593 1973 Unknown [id number] 2.16.840.1.672449.3.579. 2.593 1973 Unknown [id number] 2.16.840.1.210176.3.579. 2.593 1973 Unknown [id number] 2.16.840.1.741018.3.579. 2.593 1973 Unknown [id number] 2.16.840.1.692088.3.579. 2.593 1973 Unknown [id number] 2.16.840.1.104635.3.579. 2.593 1973 Unknown [id number] 2.16.840.1.128202.3.579. 2.593 1973 Unknown [id number] 2.16.840.1.454173.3.579. 2.593 1973 Unknown [id number] 2.16.840.1.507265.3.579. 2.593 1973 Unknown [id number] 2.16.840.1.000907.3.579. 2.593 1973 Unknown [id number] 2.16.840.1.931491.3.579. 2.593 1973 Unknown [id number] 2.16.840.1.043514.3.579. 2.593 1973 Unknown [id number] 2.16.840.1.594010.3.579. 2.593 1973 Unknown [id number] 2.16.840.1.822114.3.579. 2.593 1973 Unknown [id number] 2.16.840.1.799399.3.579. 2.593 1973 Unknown [id number] 2.16.840.1.550226.3.579. 2.1046 1973 Unknown [id number] 2.16.840.1.043841.3.579. 2.1259 1973 Unknown [id number] 2.16.840.1.190369.3.579. 2.1259 1973 Unknown [id number] 2.16.840.1.995369.3.579. 2.1259 1973 Unknown [id number] 2.16.840.1.641893.3.579. 2.1286 1973 Unknown [id number] 2.16.840.1.331457.3.579. 2.1242 1973 Unknown [id number] 2.16.840.1.626531.3.579. 2.727 1973 Unknown [id number] 2.16.840.1.649223.3.579. 2.72 1973 Unknown [id number] 2.16.840.1.504585.3.579. 2.727 1973 Unknown [id number] 2.16.840.1.983080.3.579. 2.727 1973 Unknown [id number] 2.16.840.1.382816.3.579. 2.727 1973 Unknown [id number] 2.16.840.1.065199.3.579. 2.72 1973 Unknown [id number] 2.16.840.1.498859.3.579. 2.727 1973 Unknown [id number] 2.16.840.1.623712.3.579. 2.727 1973 Unknown [id number] 2.16.840.1.878852.3.579. 2.727 1959 Unknown [id number] Unknown [id number] 2.16.840.1.241582.3.579. 2.531 Unknown [id number] 2.16.840.1.378505.3.579. 2.531 Social History Date Type Detail Facility [facility] Tobacco smoking consumption unknown [facility] Work Phone: Start: 10-16-2020 End: 08-01-2023 History of drug use History of drug use [facility] Work Phone: Start: 01-05-2016 End: 10-01-2024 Tobacco smoking status Smokes tobacco daily (finding) [facility] Comment on above: 1ppd 1ppd Start: 10-16-2020 End: 08-08-2023 Sex Assigned At Female [facility] History of tobacco use Cigarette Smoker [facility] Start: 08-08-2023 End: 10-01-2024 Alcohol intake Lifetime non-drinker (finding) [facility] Start: 1973 Sex Assigned At Not on file [facility] History of tobacco use Passive smoker [facility] Start: 10-01-2024 Tobacco use and exposure Smokeless tobacco non-user [facility] Childcare Unknown [facility] Start: 12-17-2009 End: 04-10-2015 Sex Female (finding) [facility] Start: 10-20-2024 End: 10-30-2024 Exposure to SARS-CoV-2 (event) Not sure [facility] Start: 10-31-2024 Tobacco smoking status Heavy t obacco smoker (finding) [facility] Comment on above: 1ppd Sexual Orientation [facility] Medical Equipment Procedure Code Equipment Code Equipment Original Text Equipment Identifier Dates 2 EA, SubLingual , Daily, Refill(s) 0 Start: 01-05-2016 2 EA, SubLingual , Daily, Refill(s) 0 Start: 01-05-2016 2 EA, SubLingual , Daily, Refill(s) 0 Start: 01-05-2016 Bone Graft, Osteocel Plus, Cellular,Matrix, 10 Case [id number] Start: 12-26-2020 Comment on above: Description: Convert ed from [facility]. Please see archived information for full log information. Bone Graft, Osteocel Plus, Cellular,Matrix, 10 Case [id number] Start: 12-26-2020 Comment on above: Description: Convert ed from [facility]. Please see archived information for full log information. Bone Graft, Osteocel Plus, Cellular,Matrix, 10 Case [id number] Start: 12-26-2020 Comment on above: Description: Convert ed from [facility]. Please see archived information for full log information. Bone Matrix, Osteocel Pro Cellular, Large Case [id number] Start: 09-18-2021 Comment on above: Description: Convert ed from [facility]. Please see archived information for full log information. Bone Graft, Osteocel Plus, Cellular,Matrix, [facility] Case [id number] Start: 09-18-2021 Comment on above: Description: Convert ed from [facility]. Please see archived information for full log information. Bone Matrix, Osteocel Pro Cellular, Medium Case [id number] Start: 09-21-2021 Comment on above: Description: Convert ed from [facility]. Please see archived information for full log information. Screw, Reline-O, 6.5x50mm 2s Polyaxial Case [id number] Start: 12-26-2020 Comment on above: Description: Convert ed from [facility]. Please see archived information for full log information. Screw, Reline-O, 4.5x45mm 2s Polyaxial Case [id number] Start: 12-26-2020 Comment on above: Description: Convert ed from [facility]. Please see archived information for full log information. 5.5x500 Jrod Alfonzo e [id number] Start: 12-26-2020 Comment on above: Description: Convert ed from [facility]. Please see archived information for full log information. Additional Information:5.5x500 JRODper bill only jdr 12/29/2020 1357pm Screw, Reline-O, 5.5x40mm 2s Polyaxial Case [id number] Start: 12-26-2020 Comment on above: Description: Convert ed from [facility]. Please see archived information for full log information. Screw, Reline-O, 6.5x45mm 2s Polyaxial Case [id number] Start: 12-26-2020 Comment on above: Description: Convert ed from [facility]. Please see archived information for full log information. Sandra Attrax, 10cc Case [id number] Start: 12-26-2020 Comment on above: Description: Convert ed from [facility]. Please see archived information for full log information. Screw Reline-O, 5.0x45mm 2s Polyaxial Case [id number] Start: 12-26-2020 Comment on above: Description: Convert ed from [facility]. Please see archived information for full log information. Screw, Reline-O, 5.5x35mm 2s Polyaxial Case [id number] Start: 12-26-2020 Comment on above: Description: Convert ed from [facility]. Please see archived information for full log information. Screw, Reline-O, 5.5x45mm 2s Polyaxial Case [id number] Start: 12-26-2020 Comment on above: Description: Convert ed from [facility]. Please see archived information for full log information. Reline-O Conn, 5-6/5-6mm Rotating O-O Case [id number] Start: 12-26-2020 Comment on above: Description: Convert ed from [facility]. Please see archived information for full log information. Reline-O Conn, 5-6/5-6mm O-H Rotating Case [id number] Start: 12-26-2020 Comment on above: Description: Convert ed from [facility]. Please see archived information for full log information. Screw, Reline-O, 6.5x40mm 2s Polyaxial Case [id number] Start: 12-26-2020 Comment on above: Description: Convert ed from [facility]. Please see archived information for full log information. Screw, Reline-O, 7.5x45mm 2s Polyaxial Case [id number] Start: 09-18-2021 Comment on above: Description: Convert ed from [facility]. Please see archived information for full log information. Screw, Reline-O, 8.5x90mm 2s Poly Iliac Case [id number] Start: 09-18-2021 Comment on above: Description: Convert ed from [facility]. Please see archived information for full log information. Screw, Reline-O, 7.5x40mm 2s Polyaxial Case [id number] Start: 09-18-2021 Comment on above: Description: Convert ed from [facility]. Please see archived information for full log information. Bobby Reline-O 5.5mm Case [id number] Start: 09-18-2021 Comment on above: Description: Convert ed from [facility]. Please see archived information for full log information. Additional Information:per bill only, verified by opnote Reline-O Conn, 5-6/5-6mm Rotating O-O Case [id number] Start: 09-18-2021 Comment on above: Description: Convert ed from [facility]. Please see archived information for full log information. Bobby, Reline-0, 5.5 X 90mm, Lordotic Case [id number] Start: 09-18-2021 Comment on above: Description: Convert ed from [facility]. Please see archived information for full log information. Bobby, Reline-O Cocr, 5.2p261ns Straight Case [id number] Start: 09-18-2021 Comment on above: Description: Convert ed from [facility]. Please see archived information for full log information. Bobby, Reline-0, 5.5 X 40mm, Lordotic Case [id number] Start: 09-21-2021 Comment on above: Description: Convert ed from [facility]. Please see archived information for full log information. Reline Lock Screw, Closed [place] Case [id number] Start: 09-21-2021 Comment on above: Description: Convert ed from [facility]. Please see archived information for full log information. Micki Landis, 5-6/5-6mm O-H Med Case [id number] Start: 09-21-2021 Comment on above: Description: Convert ed from [facility]. Please see archived information for full log information. Screw, Donisne Lock, 5.5mm Open [place] Case [id number] Start: 12-26-2020 Comment on above: Description: Convert ed from [facility]. Please see archived information for full log information. Screw, Reline Lock, 5.5mm Open [place] Case [id number] Start: 09-18-2021 Comment on above: Description: Convert ed from [facility]. Please see archived information for full log information. [place], Jaron Lock, 5.5mm Open [place] Case [id number] Start: 09-21-2021 Comment on above: Description: Convert ed from [facility]. Please see archived information for full log information. Functional Status Date Assessment Result Facility 11-26-2022 Functional Status N/A [facility] 07-16-2022 Functional Status N/A [facility] Functional observable [facility] Mental Status Date Assessment Result Facility 12-29-2020 Cognitive functi ons [id number] [facility] Clinical Notes 12-26-2020 to 12-12-2024 Rodger Frederick MD - 10/30/2024 11:40 AM Gerson Martinez MD - 10/01/2024 5:06 PM Gerson Martinez MD - 10/01/2024 11:30 AM Gerson Martinez MD - 10/01/2024 11:30 AM EST Note Date & Type Note Facility 12-12-2024 Evaluation + Plan note Future Scheduled TestsEcho Transthoracic Complete 12/12/24 [facility] 10-30-2024 History of Present illness Narrative This is a telehealth visit that was performed with the originating site at PATIENT LOCATION of Home . The today's televisit was conducted with audio communication only Consent to participate in audio visit was obtained Presents with history of prior history of multiple spine surgeries with the most recent being extension of her previous thoracic fusion up to the pelvis. At this point she has T4 to pelvis instrumentation and fusion. Last encounter was a telephone visit on 02/05/24 for significant complaints in the form of difficulty walking pain and numbness involving bilateral lower extremities that goes up to the knee. She has significant pain in the mid back and lower back region. She was recomended to have updated imaging via MRI of the cervical thoracic and lumbar spine as MRI of the lumbar spine alone may not be diagnostic enough to rule out the cause of her ongoing symptoms. She was to have MRI C/T/L spine with Anesthesia done at [facility] in [place] but was unable to have done due to bronchitis. CT T/L spine done 10/01/24 at [facility] images were uploaded on PACS and available for me to review and will evaluated personally. The CT scan images does not shows any evidence of instrumentation failure or any concerning findings. At this point her major symptom remains pain in the mid back along with some left lower extremity pain. She also feels that she has some prominence of her implants in the upper back. She denies any other new neurological symptoms. PLAN: Ms. Lee is a really nice 49 y.o. female with complaints as mentioned above. She has had a previous history of major thoracolumbar instrumentation surgery with me for her severe thoracic kyphosis. She has not seen me personally ever since the time of surgery but overall seems to be doing same as before as far as her neurological status is concerned but with some evidence of pain as discussed above. A CT scan that was done in September does not shows any instrumentation failure or fracture that would require any further treatment. She does mention that she has some prominence of her implants at this point of time I explained to her that I would order AP and lateral scoliosis film to evaluate her standing alignment to see if she would benefit from any further workup or evaluation. Other than that I do not see her to be a candidate or in need for any further surgical intervention. I also discussed with her the option of seeing me in person and she explained to me that she is going to think about it. We will get back in touch with her after she completes her x-rays to see if she would require any further evaluation from oversight. It was a pleasure to participate in Ms. Lee clinical care. All questions were answered to her satisfaction and she explained understanding of the further treatment plan. Lex Frederick MD, [facility] Technology Coordinator of Neurological Surgery [facility] [employer] Attending Surgeon Director - Minimally Invasive Spine Surgery [place], [place] ---Some of this note was completed using F[employer]y voice recognition technology and sometimes the software misinterprets words. This may include unintended errors with respect to translation of words, typographical errors or grammar errors which may not have been identified prior to finalization of the chart note. Please take this into account when reading this note--- documented in this encounter [facility] Work Phone: 10-01-2024 Hospital course Narrative Discharge Summary Patient ID: Morales Lee Acct: [id number] Patient's PCP: NO PCP, NO PCP Admit Date: 09/30/2024 Discharge Date: Admitting Physician: Елена Loyd MD Discharge Physician: Dudley Martinez MD Discharge Diagnoses: Primary Problem Generalized weakness Principal Problem: Generalized weakness Active Problems: Ambulatory dysfunction Back pain, chronic Incomplete emptying of bladder Moderate episode of recurrent major depressive disorder ([facility]) Past Medical History: Diagnosis Date Hypertension Injury [...] Your Medications These medications were sent to [id number] - [place], [place] - [address] [place] [address] fluconazole 100 mg tablet potassium chloride 20 MEQ CR tablet sulfamethoxazole-trimethoprim 800-160 mg per tablet Time Spent on discharge is 35 minutes in the examination, evaluation, counseling and review of medications and discharge plan. Copy sent to Dr. GOODSON PCP, NO PCP documented in this encounter [facility] 10-01-2024 History and physical note [facility] History and Physical Name: Morales Lee Acct: [id number] Room: 04 Admit Date: 09/30/2024 PCP: HAMZAH PCP, NO [...] Moderate episode of recurrent major depressive disorder ([facility]) Plan: Patient is on Suboxone gabapentin DVT [...] meaning can be extrapolated by contextual diversion. [facility] 10-01-2024 History and physical note [facility] History and Physical Name: Morales Lee Acct: [id number] Room: 12/07 Admit Date: 09/30/2024 PCP: HAMZAH [...] Moderate episode of recurrent major depressive disorder ([facility]) Plan: Patient is on Suboxone gabapentin DVT [...] by contextual diversion. documented in this encounter [facility] 10-01-2024 Emergency department Triage note PT ARRIVES FROM HOME VIA EMS FOR CHRONIC BACK PAIN AND DEPRESSION [facility] 10-01-2024 Emergency department Note PT ARRIVES FROM HOME VIA EMS FOR CHRONIC BACK PAIN AND DEPRESSION documented in this encounter [facility] 06-08-2024 Miscellaneous Notes ----- Message from Oct[employer] sent at 06/08/2024 3:14 PM EDT ----- Contract: [facility] Lidoderm Patch from [facility], not sure if can use Contract: [facility] Patient is not a current patient of this office informed that we cannnot give advice without this. Will call her insurance company. No triage done Reason for Disposition Caller has cancelled the call before the first contact Protocols used: No Contact or Duplicate Contact Call-A-AH documented in this encounter [facility] 06-08-2024 Telephone encounter Note ----- Message from MarvinDreamNotescharles sent at 06/08/2024 3:14 PM EDT ----- Contract: [facility] not sure if can use [facility] 06-08-2024 Telephone encounter Note Contract: [facility] Patient is not a current patient of this office informed that we cannnot give advice without this. Will call her insurance company. No triage done [facility] 06-08-2024 Telephone encounter Note Reason for Disposition Caller has cancelled the call before the first contact Protocols used: No Contact or Duplicate Contact Call-A-AH [facility] 05-15-2024 History of Present illness Narrative Associated [...] physician appointments and anticipated to need it chcf and lifelong Images from the original note [...] States her daughter in law is an RUBBER V[employer] MACHINE OPERATOR and helps care for her. When I discussed with patient her chronic neurological issues including spinal cord compression, stenosis and myelopathies, pt states she is no longer seeing neuro because after what the [place] did to me, I am not seeing [...] physician appointments and anticipated to need it chcf and lifelong Psychophysiological insomnia Encounter for medication management Relevant Orders Rapid drug screen, urine Pressure ulcer, buttock Patient is wheelchair bound with limited mobility due to chronic LBP, b/l LE weakness. Has associated fecal and urinary incontinence. Relevant Orders Ambulatory referral to Wound Clinic Rapid drug screen, urine Caroline documented in this encounter [facility] 05-02-2024 Miscellaneous Notes She has no showed or canceled the same day 4 times now for a new patient appointment. I do not feel she should be rescheduled with us. Patient has been discharged from practice. Letter sent 05/03/2024. documented in this encounter [facility] 05-02-2024 Telephone encounter Note She has no showed or canceled the same day 4 times now for a new patient appointment. I do not feel she should be rescheduled with us. [facility] 05-02[facility]2024 Telephone encounter Note Patient has been discharged from [facility]. Letter sent 05/03/2024. [facility] 04-24-2024 Telephone encounter Note Patient would like a refill of her Valium. Was from [employer] but did not transfer to [facility] [employer] [employer]. [facility] 04-24-2024 Miscellaneous Notes Patient would like a refill of her Valium. Was from [employer] but did not transfer to [employer]. documented in this encounter [facility] 11-26-2022 Hospital Discharge instructions Patient Education 11/26/2022 [...] Document Reviewed: 10/01/2017 Elsevier Patient Education 2019 [employer] Follow Up Care 10/14/2022 11:11:52 With:Zachery HARKINS, Guillermina Rhodes, URL, URO Address: When: Unknown [facility] [place] 09-23-2022 Hospital Discharge instructions Patient Education 09/23/2022 [...] including vitamins, herbs, eye drops, creams, and jqtz-dii-ltcxcfr medicines. Any problems you or family members [...] provider tells you to take them. Taking nbti-ilz-reghxdi medicines, vitamins, herbs, and supplements. General instructions [...] 08/08/2013 Document Revised: 10/08/2019 Document Reviewed: 10/08/2019 Else[employer] Patient Education 2019 [employer]. Follow Up Care 08/31/2022 10:49:10 With:Zachery HARKINS, CAROLEE Anderson, URO Address: When: Unknown [facility] 07-16-2022 Hospital Discharge instructions Patient Education 07/16/2022 [...] nerve stimulation). For women, using a medical grade shoemaker to prevent urine leaks. This is a [...] right after experiencing incontinence. General instructions Take jvjg-qvl-gqmsfnk and prescription medicines only as told by [...] 09/29/2005 Document Revised: 09/01/2018 Document Reviewed: 12/01/2017 View[employer] Patient Education 2020 [employer]. Follow Up Care 06/15/2022 11:30:52 With:Zachery HARKINS, CAROLEE Anderson, URO Address: When: Unknown [facility] 02-04-2022 Hospital Discharge instructions Patient [...] nerve stimulation). For women, using a medical grade shoemaker to prevent urine leaks. This is a [...] right after experiencing incontinence. General instructions Take syyt-phs-ouxsgva and prescription medicines only as told by [...] 09/29/2005 Document Revised: 09/01/2018 Document Reviewed: 12/01/2017 View3 Patient Education 2020 Physcient. 02/04/2022 16:23:10 Calorie Counting for Weight Loss [...] in your pocket, or use a mobile carlene or website. Some programs will calculate calories [...] 08/22/2006 Document Revised: 05/11/2019 Document Reviewed: 07/22/2017 View3 Patient Education 2020 Physcient. Follow Up Care 02/04/2022 13:28:46 With:Guillermina Bingham MD, URL, URO Address: When: Unknown [facility] 01-11-2022 Evaluation + Plan note Extrac alexander from: Title:Urodynamic Evaluation * Author:Sonja Bingham MD Date:01/11/22 Patient: MORALES LEE Age: 46 years Sex: Female : 1975 Associated Diagnoses: None Author: Guillermina Bingham MD Procedure Urodynamic Evaluation procedure General [...] and Plan Diagnosis Bowel and bladder incontinence ([id number] R32, Billing Diagnosis, Medical). Incontinence without sensory awareness (HUU60-UI N39.42, Working, Medical). Diagnosis Bowel and bladder incontinence (ZAG12-YC R32, Billing Diagnosis, Medical). Incontinence without sensory awareness (BJM92-YE N39.42, Working, Medical). Addendum by Guillermina Bingham MD on January 11, 2022 10:23 EDT Post procedure diagnosis: Intrinsic sphincter deficiency, acontractile detrusor [facility]05-09-2022 Hospital Discharge instructions Patient Education [...] 100 degrees. Follow Up Care 01/06/2022 11:41:34 With:Guillermina Bingham Address: [facility] [address] [address]- [phone] Business (1) When: Unknown Comments:Call for followup appointment in 2-3 weeks With:Guillermina Bingham Address:Unknown When: Unknown [facility]05-04-2022 Hospital Discharge instructions Patient Education [...] program. Other places that provide vaccinations include: [facility] health clinics. Check with your local health department. [facility], where you would pay only what you can afford. To find one near you, check this website: [email or web address] [facility]. These are part of a program for [...] 09/05/2016 Document Revised: 09/23/2018 Document Reviewed: 04/19/2017 ElseTopmission Patient Education 2020 Elsevier Inc. Follow Up Care 11/20/2021 10:16:51 With:NATALIA MANNING PA-C, URL Address: [place] [address] When:01/13/2022 [facility] 01-28-2022 NoteSend Summary: Discharge Summary Providers: Provider [...] Extension of prior T6-L4 instrumentation with multiple bobby construct and side connectors Date: 21-Sep-2021 15:36:00 Procedure Name: posterior L4-L5 decompression posterior L4-L5 arthrodesis Condition at Discharge: Satisfactory Disposition at Discharge: Home Health Care - New Vital Signs: T PRBPSpO2 Value36.4756330/6394% Date/Time10/02 8: 8: 8: 8: 8:00 Range(36.1C [...] 09/21 OR for L4/5 laminectomy and accessory bobby placement 09/23 Patient transitioned from post op FISH WARDEN to oral pain regimen 09/24 Fitted for [...] or twist. Instead, bend at knees to cook pickled meat objects (more content not included)...[facility]01-26-2022 NoteThis report has been cancelled.[facility]01-17-2022 NotePROCEDURE DETAILS Postoperative Diagnosis: lumbar stenosis Surgeon: Dr. Lex Frederick Resident/Fellow/Other Life Sciences Manager: Chery Awan Procedure: posterior L4-L5 decompression posterior L4-L5 arthrodesis Anesthesia: General Estimated Blood Loss: 100cc Findings: severe ligamentous hypertrophy and fibrotic scar tissue, Excellent decompression attained and confirmed placement of additional bobby and bone graft Drains and/or Catheters: subfascial [...] discussed the possibility of placing an additional bobby across the fractured segment for added instability [...] by placement of cellular allograft. A small bobby was placed spanning the 2 rods using [...] Completion Last Updated: 22-Sep-2021 10:54 by Lex Frederick)[facility]01-17-2022 NoteHistory & Physical Reviewed: /Lactating: [...] Note Completion: I am a: Resident/Fellow Attending Vasu saw and evaluated the patient. I personally obtained the schofield and critical portions of the history and physical exam or was physically present for schofield and critical portions performed by the resident/fellow. I reviewed the resident/fellows documentation and discussed the patient with the resident/fellow. I agree with the resident/fellows medical decision making as documented in the note. I personally evaluated the patient [id number] Electronic Signatures: Lex Frederick) (Signed 21-Sep-2021 11:50) Authored: Note Completion Co-Signer: History & Physical Reviewed, ERAS, Consent, Note Completion Jaya Mosquera (Resident)) (Signed 21-Sep-2021 02:51) Authored: History & Physical Reviewed, ERAS, Consent, Note Completion Last Updated: 21-Sep-2021 11:50 by Lex Frederick) References: 1. Data Referenced From MRI Safety Screen v2 19-Sep-2021 19:00[facility]01-15-2022 NoteRehab: Info: Mode of Treatmentoccupational [...] appropriate. 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 Exploration of spinal fusion 2. Reduction of L4/5 dislocation 2. L5-pelvis instrumented fusion with L4-pelvis posterolateral arthrodesis 4. Extension of prior T6-L4 instrumentation with multiple bobby construct and side connectors Anesthesia: Bryan Mora [...] performed and the images transferred to the [employer] system for use in intraoperative image-guided computer-assisted [...] the screws and through a combination of bobby translation, cantilever and compression with excellent correction of the facet dislocation and coronal deformity The rods were secured in place using set caps and final tightened using the torque dri (more content not included)...[facility]01-14-2022 NoteThis report has been cancelled.[facility]01-14-2022 NoteHistory & Physical Reviewed: /Lactating: [...] the note. I personally evaluated the patient [id number] Electronic Signatures: Fidel Maciel (Resident)) (Signed 17-Sep-2021 22:49) Authored: History & Physical Reviewed, ERAS, Consent, Note Completion Lex Frederick) (Signed 19-Sep-2021 10:17) Authored: Note Completion Co-Signer: History & Physical Reviewed, ERAS, Consent, Note Completion Last Updated: 19-Sep-2021 10:17 by Lex Frederick) References: 1. Data Referenced From MRI Safety Screen v2 17-Sep-2021 11:28[facility]01-11-2022 NoteReferral Information: Consult requested by [...] be able to m (more content not included)...[facility]01-11-2022 NoteHistory of Present Illness: /Lactating: [...] the note. I personally evaluated the patient [id number] Electronic Signatures: Fidel Maciel (Resident)) (Signed 15-Sep-2021 [...] Plan Last Updated: 16-Sep-2021 10:20 by Lex Frederick)[facility]04-23-2021 History of Present illness Narrative* I just had the pleasure of seeing Mrs. Lee back in the Neurosurgery Spine Clinic at the [facility]. She is a very pleasant 46-year-old female, who recently underwent a L1 Vertbrectomy and T6-L4 Fusion with nm on 12/26/2020 and is status post 8 [...] osteotomies and a thoracolumbar instrumented fusion with in December 2020. She did very well [...] a pleasure to participate in Ms. JESUS holils. * Lex Frederick MD, [facility], FAANS * Director - Minimally Invasive Spine Surgery * [facility] * Technology Coordinator of Neurological Surgery * [facility] [employer] * [place], [place] * Some of this note was completed using [email or web address] voice recognition technology and sometimes the software misinterprets words. This may include unintended errors with respect to translation of words, typographical errors or grammar errors which may not have been identified prior to finalization of the chart note. Please take this into account when reading this note. LV-Pkavbgwqzpgv-Dqpnl Work Phone: 1([phone]) 801-537104-23-2021 Reason for referral (narrative)* Reason for Referral: Patient s/p posterior bilateral L1 transpedicular decompression, posterior T7-T8, T8-T9, T9-T10, T0-T11, T11-T12, T12-L1 hutton hernandez osteotomies, Posterior T5-L4 instrumentation and fusion on 12/26 [facility] Future Appointments Appointment Date:01/07/2022 11:00:00 AM Scheduled Provider: Location:[facility] Appointment Type:Urology CALL PAT FT Appointment Date:01/11/2022 08:00:00 AM Scheduled Provider: Location:[facility] Appointment Type:Urology FT Appointment Date:01/11/2022 09:00:00 AM Scheduled Provider: Location:[facility] Appointment Type:Urology FT [facility] + [facility] + Plan note Future Appointments Appointment Date:04/06/2024 12:00:00 PM Scheduled Provider: Location:.MRI Appointment Type:MRI Spine (FT) Appointment Date:04/06/2024 12:00:00 PM Scheduled Provider: Location:[facility] Appointment Type:Surgery FT Future Scheduled Tests Radiology* MRI Spine Cervical w/o Contrast 04/06/24 * MRI Spine Lumbar w/o Contrast 04/06/24 * MRI Spine Thoracic w/o Contrast 04/06/24 [facility] evaluation + Plan note Future Appointments Appointment Date:10/26/2024 12:00:00 PM Scheduled [facility] Appointment Date:10/26/2024 12:00:00 PM Scheduled Provider: Location:[facility] Appointment Type:Surgery FT Future Scheduled Tests Radiology* MRI Spine Cervical w/o Contrast 10/26/24 * MRI Spine Lumbar w/o Contrast 10/26/24 * MRI Spine Thoracic w/o Contrast 10/26/24 [facility] Evaluation + Plan note Future Appointments Appointment Date:10/31/2024 01:00:00 PM Scheduled Provider:Deirdre Hale Location:[facility] Appointment Type:FM New Patient - Adult [facility] Evaluation + Plan note Future Appointments Appointment Date:12/14/2024 09:20:00 AM Scheduled Provider: Location:[facility] Appointment Type: Lab Draw Diagnostic Tests Pending * PAP [id number] w/ HPV and Genotype rflx 12/12/24 Future Scheduled Tests Laboratory* CBC w/ Auto Diff 12/12/24 * CBC w/ Auto Diff 12/12/24 * Comprehensive Metabolic Panel 12/12/24 Radiology* Echo Transthoracic Complete 12/12/24 [facility] evaluation note* Neurological: asfedvc8vhh 5/5 except hg/io4+ble 5/5incision cdiHead/Neck: Ox3, awake, alertBUE 5 prox, HG/IO4+BLE HF/KE/DF/PF/EHL 5 [facility]* Constitutional: in no acute distressSkin: Well perfusedEyes: OU 3RHead/Neck: atraumatic, normocephal icRespiratory/Thorax: airway intact, good chest expansionCardiovascular: normal rate, regular rhythmGastrointestinal: non-tenderNeurological: NAD, A&Qh1Qpqeuzz Nerves II-XII: PERRL, EOMI, Face symmetric, Facial SILT, Palate/Tongue midline and symmetric, shoulder shrugs symmetric, hearing intact to finger rubs bilaterallyMotor: RUE D5, B5, T5, HG5, IO5LUE D5, B5, T5, HG5, IO5RLE HF 4+, KE4+, PF4-, DF3LLE HF 4+, KE4+, PF3, DF4-Sensation: SILT throughout all extremitiesPsychological: mood appropriate [facility]* Diagnosis Chronic low back [...] stage, unspecified laterality documented in this encounter [facility]* Diagnosis Chronic low back pain, unspecified back pain laterality, unspecified whether sciatica present documented in this encounter [facility]* Diagnosis Generalized weakness- Primary Generalized weakness Chronic bilateral low back pain, unspecified whether sciatica present Chronic thoracic back pain, unspecified back pain laterality Encounter for screening involving social determinants of health (SDoH) Ambulatory dysfunction Back pain, chronic Incomplete emptying of bladder Incomplete bladder emptying Moderate episode of recurrent major depressive disorder ([facility]) [facility] Diagnosis S/P spinal fusion Arthrodesis status documented in this encounter [facility] Work Phone: Hospital course Narrative No data available for this section [facility] Hospital Discharge instructions* Activity:activity as [...] Certification:Home Care Services Needed: yesSkilled Disciplines Ordered: RN/PHOTOGRAPHER STILL, PT, OTFace to Face Encounter Completed: yesDate of Encounter: [id number] Necessity for Homecare (based on clinical findings): [...] washing dishes, & loading the dryer or transport 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 * Wound [...] Josephuled Date/Time: 08-Jan-2021 10:40Location: [facility], [facility] [address] [place], [place]Phone Number: [phone]: 2 week postop/wound check visit; Bring Insurance Card and Photo ID [facility] Dis[facility] instructions No data available for this section [facility] Hospital Discharge instructionsNot on filedocumented in this encounterProFisher-[facility] SystemInstructionsNot on filedocumented in this encounterProFisher-[facility] SystemInstructionsNot on filedocumented in this encounterProFisher-[facility] SystemProgress note No data available for this section [facility] reason for referral (narrative) , urinary incontinence, neurogenic bladder, open bladder neck, possible SP tube placement Referred by: Zachery HARKINS, Guillermina Rhodes [facility] Reason for referral (narrative)* Consultation (Routine) - Authorized Specialty Diagnoses / Procedures Referred By Contac t Referred To Contact Wound Care Diagnoses Pressure injury of skin of buttock, unspecified injury stage, unspecified laterality Procedures NE OFFICE/OUTPATIENT NEW HIGH MDM 60 MINUTES Genny Orosco, TAWANNA [address] [place] [address] Pérez Pederson MD [facility] [address], [place] [address] Referral ID Status Reason Start Date Expiration Date Visits Requested Visits Authorized [id number] Authorized Specialty Services Required 05/15/2024 11/11/2024 1 [...] section and content) DATE CREATED AUTHOR 06/20/2019 [facility] DATE CREATED AUTHOR AUTHOR'S ORGANIZ ATION 06/20/2019 [facility] DATE CREATED AUTHOR AUTHOR'S ORGANIZ ATION 07/26/2019 [facility] DATE CREATED AUTHOR AUTHOR'S ORGANIZ ATION 12/29/2020 [facility] DATE CREATED AUTHOR AUTHOR'S ORGANIZ ATION 09/16/2021 [employer] DATE CREATED AUTHOR AUTHOR'S ORGANIZ ATION 12/10/2021 [facility] DATE CREATED AUTHOR AUTHOR'S ORGANIZ ATION 08/06/2022 [facility] DATE CREATED AUTHOR AUTHOR'S ORGANIZ ATION 01/17/2023 [facility] DATE CREATED AUTHOR AUTHOR'S ORGANIZ ATION 06/09/2023 [facility] DATE CREATED AUTHOR AUTHOR'S ORGANIZ ATION 05/15/2024 [facility] DATE CREATED AUTHOR AUTHOR'S ORGANIZ ATION 10/02/2024 [facility] DATE CREATED AUTHOR AUTHOR'S ORGANIZ ATION 11/03/2024 [facility] DATE CREATED AUTHOR AUTHOR'S ORGANIZ ATION 11/25/2024 [facility] DATE CREATED AUTHOR AUTHOR'S ORGANIZ ATION 12/26/2024 [facility] DATE CREATED AUTHOR AUTHOR'S ORGANIZ ATION 01/01/2025 [facility] DATE CREATED AUTHOR AUTHOR'S ORGANIZ ATION 03/28/2025 [facility] <item><item> Privacy Markings (unrecogniz ed section [...] Care Team (unrecognized sect ion and content) Gastroenterology Nurse Practitioner Relationship Specialty Start Date End Date Shaikh Obrien MD PCP - General Internal Medicine 08/05/23 Gastroenterology Nurse Practitioner Relationship Specialty Start Date End Date Unallocated, Noms MD Larry [address] [place] [phone] (Work) PCP - General Family Medicine 06/04/24 Genny Orosco NP [address] [place] [address] Nurse Practitioner Family Medicine 04/12/24 Gastroenterology Nurse Practitioner Relationship Specialty Start Date End Date Kostas Ching MD [address] [place] [phone] PCP - General Family Medicine 04/12/24 Genny Orosco NP [address] [place] [address] Nurse Practitioner Family Medicine 04/12/24 Gastroenterology Nurse Practitioner Relationship Specialty Start Date End Date Kostas Ching MD [address] [place] [phone] PCP - General Family Medicine 04/12/24 Genny Orosco NP [address] [place] [address] Nurse Practitioner Family Medicine 04/12/24 Gastroenterology Nurse Practitioner Relationship Specialty Start Date End Date Kostas Ching MD [address] [place] [phone] PCP - General Family Medicine 04/12/24 Genny Orosco NP [address] [place] [address] Nurse Practitioner Family Medicine 04/12/24 Gastroenterology Nurse Practitioner Relationship Specialty Start Date End Date Kostas Ching MD [address] [place] [address] PCP - General Family Medicine 04/12/24 Genny Orosco NP [address] [place] [address] Nurse Practitioner Family Medicine 04/12/24 Gastroenterology Nurse Practitioner Relationship Specialty Start Date End Date Unallocated, Noms MD Larry [address] [facility] [place], [place] [phone] PCP - General Family Medicine 06/04/24 Genny Orosco NP [address] [place] [address] Nurse Practitioner Family Medicine 04/12/24 Gastroenterology Nurse Practitioner Relationship Specialty Start Date End Date No Pcp, [place] [address] PCP - General Family Medicine 10/01/24 Gastroenterology Nurse Practitioner Relationship Specialty Start Date End Date Shaikh Obrien MD PCP - General Internal Medicine 11/15/22 Gastroenterology Nurse Practitioner Relationship Specialty Start Date End Date Shaikh Obrien MD PCP - General Internal Medicine 11/15/22 Reason for Visit (unrecogniz ed section and content) Reason Comments Hospital Follow-up Reason Onset Date Comments Med Refill 04/24/2024 Reason Comments Back Pain Specialty Diagnoses / Procedures Referred By Contac t Referred To Contact Diagnoses Chest pain Generalized weakness Елена Loyd MD [address], [facility] [place] [address] Phone: tel: fax: Referral ID Status Reason Start Date Expiration Date Visits Re quested Visits Authorized [id number] 1 1 Scheduled Active and Recently Administ [...] if present, before applying new. 1616 (Medication Carlene lied - Provider: Carissa Adkins, MERA) orphenadrine (NORFLEX) injection 60 mg (COMPLETED) 60 [...] RN)1513 (New Bag - Provider: Carissa Adkins, MERA)1646 (Stop Bag - Provider: Carissa Adkins, RN) [...] use. 0817 (Given - Provid er: Carissa Adkins RN) ondansetron (PF) (ZOFRAN) injection 4 mg 4 mg, intravenous, Every 4 hours PRN, nausea, vomiting, Starting on Tue10/01/24 at 0412, Administer over 2-5 minutes. 0826 (Given - Provid er: Carissa Adkins RN) [...] BE BASED ON THE PRIMARY CLINICAL RECORDS. [facility]. provides no warranty or guarantee of the accuracy or completeness of information in this document.
[2025-04-30 12:18] VITALS: TEMP 36.6
[2025-04-30 12:23] VITALS: O2SAT 88
[2025-04-30 12:53] VITALS: O2SAT 95
--- NOTE | 2025-04-30 12:55 | XR_ITS ---
The [address] [address] Patient Name: MORALES LEE MRN: [id number] date: 1975 Sex: F Assigned Patient Location: ER Current Patient Location: ER Accession/Order Number: [id number] Exam Date: 04/30/2025 12:50 Report Date: 04/30/2025 13:04 At the request of: MARKUS KIDD DO Procedure: XR chest 1V Plain film chest Single view HISTORY: Low pulse ox. Shortness of breath COMPARISON: 10/05/2024 FINDINGS: SUPPORT DEVICES: None POSTSURGICAL CHANGES: Spinal fixation hardware redemonstrated HEART: Within normal limits PULMONARY ROBERTO: Within normal limits MEDIASTINUM: Unremarkable LUNGS AND PLEURA: No acute lung process, pleural effusion or pneumothorax identified. Similar moderate right hemidiaphragm elevation BONY STRUCTURES: Intact ADDITIONAL FINDINGS None XR/XR chest 1V IMPRESSION: No acute process. Impression dictated by: Alexandru Pond M.D. 04/30/2025 1:04 PM Dictation Location: [place] [address] Electronically authenticated by: [id number] Y Date: 04/30/2025 13:04
[2025-04-30] MEDS: FLUCONAZOLE 150 MG TABLET PO (14:43)
--- NOTE | 2025-05-01 07:37 | ED.GENADUL1 ---
HPI HPI - General Adult General Chief complaint: Recheck/Abnormal Lab/Rx Stated complaint: CATHETER ISSUE Time Seen by Provider: 04/30/25 11:50 Source: patient Mode of arrival: ambulance History of Present Illness HPI narrative: A 49-year-old female presenting to the emergency department requesting Alvares catheter be changed. Patient is a chronic indwelling Alvares catheter for neurogenic bladder after complications from prior spine surgery. She states she has some mild discomfort in the lower part of her abdomen, but is otherwise asymptomatic. She is requesting antibiotics because she believes she may have a UTI. She denies any other symptoms such as cough, congestion, fevers, chills, chest pain, or shortness of breath. Related Data Home Medications ?Medication ?Instructions ?Recorded ?Confirmed buprenorphine 8 mg-naloxone 2 mg 1 film sublingual Q8H 03/01/23 04/30/25 sublingual film gabapentin 800 mg tablet 800 mg PO TID 03/30/23 04/30/25 tizanidine 4 mg tablet 4 mg PO Q8H PRN muscle spasticity 03/30/23 04/30/25 potassium chloride 20 mEq 20 meq PO DAILY 10/05/24 04/30/25 tablet,extended release(part/cryst) diazepam 5 mg tablet 5 mg PO DAILY 04/30/25 04/30/25 duloxetine 30 mg capsule,delayed 30 mg PO BID 04/30/25 04/30/25 release Previous Rx's ?Medication ?Instructions ?Recorded sulfamethoxazole 800 1 tab PO BID 5 days #10 tabs 04/30/25 mg-trimethoprim 160 mg tablet (Bactrim DS) Allergies Allergy/AdvReac Type Severity Reaction Status Date / Time codeine Allergy Severe rash Verified 04/30/25 12:06 Penicillins Allergy Severe Anaphylaxis Verified 04/30/25 12:06 quetiapine (From Seroquel) Allergy Severe Seizure Verified 04/30/25 12:06 Opioid HPI Opioid Management Most Recent Opioid Data: Last Pain Scale 5 09/25/24, 16:34 Last ORT Total Score 10 09/01/24, 08:58 Last ORT Risk Category High Risk 09/01/24, 08:58 Urine Drug Screen Interp, (.) Final 05/14/24, 09:30 Ur Phencyclidine Scrn, (NEGATIVE) Negative 10/05/24, 10:20 Review of Systems ROS Status of ROS 10 or more systems reviewed and unremarkable except as noted in history and below [facility] Medical History 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 (ICD-10) Ulcer of left heel and midfoot, limited to breakdown of skin (~08/27/24) ?L97.421 - Non-pressure chronic ulcer of left heel and midfoot limited to breakdown of skin (ICD-10) Opioid use disorder in remission ?F11.91 - Opioid use, unspecified, in remission (ICD-10) Indwelling Alvares catheter present ?Z97.8 - Presence of other specified devices (ICD-10) Accidental fall ?W19.XXXA - Unspecified fall, initial encounter (ICD-10) Pressure ulcer ?L89.90 - Pressure ulcer of unspecified site, unspecified stage (ICD-10) Cellulitis ?L03.90 - Cellulitis, unspecified (ICD-10) Urinary tract infection ?N39.0 - Urinary tract infection, site not specified (ICD-10) Urinary catheter (Alvares) change required ?Z46.6 - Encounter for fitting and adjustment of urinary device (ICD-10) Constipation ?K59.00 - Constipation, unspecified (ICD-10) Alvares catheter problem ?T83.9XXA - Unspecified complication of genitourinary prosthetic device, implant and graft, initial encounter (ICD-10) Drug-seeking behavior ?Z76.5 - Malingerer [conscious simulation] (ICD-10) UTI (urinary tract infection) ?N39.0 - Urinary tract infection, site not specified (ICD-10) Gastritis ?K29.70 - Gastritis, unspecified, without bleeding (ICD-10) Nausea & vomiting ?R11.2 - Nausea with vomiting, unspecified (ICD-10) Pressure sore ?L89.90 - Pressure ulcer of unspecified site, unspecified stage (ICD-10) Retention of urine, unspecified ?R33.9 - Retention of urine, unspecified (ICD-10) Decubital ulcer ?L89.90 - Pressure ulcer of unspecified site, unspecified stage (ICD-10) Swollen leg ?M79.89 - Other specified soft tissue disorders (ICD-10) Bronchitis ?J40 - Bronchitis, not specified as acute or chronic (ICD-10) Alvares catheter problem ?T83.9XXA - Unspecified complication of genitourinary prosthetic device, implant and graft, initial encounter (ICD-10) Vomiting ?R11.10 - Vomiting, unspecified (ICD-10) UTI (urinary tract infection) ?N39.0 - Urinary tract infection, site not specified (ICD-10) Gastritis ?K29.70 - Gastritis, unspecified, without bleeding (ICD-10) Candidal intertrigo ?B37.2 - Candidiasis of skin and nail (ICD-10) Leukocytosis ?D72.829 - Elevated white blood cell count, unspecified (ICD-10) Chronic back pain ?M54.9 - Dorsalgia, unspecified (ICD-10) ?G89.29 - Other chronic pain (ICD-10) Fecal incontinence ?R15.9 - Full incontinence of feces (ICD-10) Urinary incontinence ?R32 - Unspecified urinary incontinence (ICD-10) Wheelchair dependence ?Z99.3 - Dependence on wheelchair (ICD-10) Cord compression myelopathy ?G95.20 - Unspecified cord compression (ICD-10) Surgical History History of back surgery ?Z98.890 - Other specified postprocedural states (ICD-10) Chronic suprapubic catheter ?Z93.59 - Other cystostomy status (ICD-10) Social History Within the past year, how often did you have a drink containing alcohol: never Score interpretation: A score less than 3 is consistent with normal alcohol consumption. Smoking status: Current every day smoker Non-prescribed substance use: former substance user Highest level of school completed/degree received: GED or equivalent Little interest or pleasure in doing things: not at all Feeling down, depressed, or hopeless: not at all Exam Narrative Exam Narrative: CONSTITUTIONAL: Appears of chronic debility, bedbound with contractures, answering questions and following commands appropriately SKIN: Was warm and dry. There is a stage I sacral pressure ulcer that does not appear infected. There is a stage II pressure ulcer under the left thigh without surrounding cellulitic changes. There is no crepitus throughout. EYES: Sclerae white. EARS, NOSE, THROAT: Moist oral mucosa. RESPIRATORY: Clear to auscultation bilaterally, no wheezes, crackles, or stridor, no use of accessory muscles CARDIOVASCULAR: Normal rate and regular rhythm. There is no S3, S4, murmur, rub. GASTROINTESTINAL: Abdomen soft, nontender, and nondistended. No rebound tenderness or guarding. There is a Alvares catheter in place draining cloudy, malodorous urine. No CVA tenderness MUSCULOSKELETAL: No peripheral edema. NEUROLOGIC: Patient is awake and alert. Facies were symmetrical. Constitutional Vital Signs, click to edit/add: Last Vital Signs Temp 97.8 F 04/30/25 12:18 Pulse 70 04/30/25 11:56 Resp 20 04/30/25 11:56 BP 107/59 04/30/25 11:56 Pulse Ox 95 04/30/25 12:53 O2 Del Method Room Air 04/30/25 12:23 Course Vital Signs Vital signs: Vital Signs Pulse Rate 70 04/30/25 11:56 Respiratory Rate 20 04/30/25 11:56 Blood Pressure 107/59 04/30/25 11:56 Pulse Oximetry 91 L 04/30/25 11:56 Oxygen Delivery Method Room Air 04/30/25 11:56 Temperature 97.8 F 04/30/25 12:18 Pulse Rate 70 04/30/25 11:56 Respiratory Rate 20 04/30/25 11:56 Blood Pressure 107/59 04/30/25 11:56 Pulse Oximetry 95 04/30/25 12:53 Oxygen Delivery Method Room Air 04/30/25 12:23 Medical Decision Making [facility] Narrative Medical decision making narrative: Patient is a 49-year-old female, history significant for chronic indwelling Alvares catheter for neurogenic bladder, presenting to the emergency department requesting Alvares catheter change and concerns for UTI. Initially, the patient had low pulse ox at triage. However, during my examination, she was saturating 95% on room air with no signs of respiratory distress or adventitious breath sounds. Her vital signs are now within normal limits. She is afebrile and hemodynamically stable. Examination as noted above. Differential diagnosis includes catheter related urinary tract infection. She has no flank pain to suggest pyelonephritis. Alvares catheter was exchanged without complication. Nursing staff had hard time obtaining urine sample as there is a minimal amount of urine in her bladder on bladder scan. Chest x-ray was initially ordered given the patient's transient hypoxia. Chest x-ray independently reviewed/interpreted by myself demonstrated no acute cardiopulmonary process. While waiting for urine sample to be collected, the patient is requesting discharge. She is requesting be empirically treated for UTI though we have not yet obtained a sample. Given the cloudy/malodorous urine, I do believe this is reasonable. She was given a prescription for Bactrim DS x 5 days. I do believe the patient is stable for discharge at this time. They were instructed to follow up with her PCP for further care. Return precautions were given including any new or worsening symptoms. Patient understands and agrees to the plan. FINAL IMPRESSION: #Acute encounter for Alvares catheter exchange #Acute possible catheter-associated UTI DISPOSITION: Discharge home CONDITION: Good Imaging Data Chest x-ray: Radiologist's impression: ITS Impressions Chest X-Ray 04/30/25 12:55 IMPRESSION: No acute process. Impression dictated by: Alexandru Pond M.D. 04/30/2025 1:04 PM Dictation Location: [employer] Electronically authenticated by: [id number] Y Date: 04/30/2025 13:04 Discharge Plan Discharge Chief Complaint: Recheck/Abnormal Lab/Rx Clinical Impression: Encounter for Alvares catheter replacement Patient Disposition: Home, Self-Care Time of Disposition Decision: 14:24 Condition: Good Mode of Transportation: Private Vehicle Prescriptions / Home Meds: New sulfamethoxazole-trimethoprim [Bactrim DS] 800-160 mg tablet 1 tab PO BID 5 Days Qty: 10 0RF No Action gabapentin 800 mg tablet 800 mg PO TID tizanidine 4 mg tablet 4 mg PO Q8H PRN (Reason: muscle spasticity) potassium chloride 20 mEq tablet,ER particles/crystals 20 meq PO DAILY Rx Instructions: 10/01/24 FOR 7 DAYS buprenorphine-naloxone 8-2 mg film 1 film sublingual Q8H diazepam 5 mg tablet 5 mg PO DAILY duloxetine 30 mg capsule,delayed release(DR/EC) 30 mg PO BID Print Language: Comoran Instructions: Alvares Catheter Removal (DC) Referrals: Duke Bolton RN [Registered Nurse, Wound Care] - 1 week MAL PEREZ [Primary Care Provider, MINING DETAIL DRAFTSPERSON] - 1 week Discharge Date/Time: 04/30/25 15:15
== END 2025-04-30 15:15 | disposition home or self-care (01) ==
PROVIDERS: Emergency Provider Student in an Organized Health Care Education/Training Program; PCP Nurse Practitioner
DX: Z46.6 Encounter for fitting and adjustment of urinary device (principal); N31.9 Neuromuscular dysfunction of bladder, unspecified; F17.200 Nicotine dependence, unspecified, uncomplicated; Z74.01 Bed confinement status; R53.81 Other malaise; L89.151 Pressure ulcer of sacral region, stage 1; L89.892 Pressure ulcer of other site, stage 2
CPT/HCPCS: 51702; 71045; 81001; 99284

== ENCOUNTER 2025-05-05 00:41 | Emergency (ER) | payer BC, SELFPAY ==
--- OUTSIDE RECORDS SUMMARY | 2024-10-16 11:28 | XMS_ITS | Continuity of Care Document ---
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 Rubber Goods Inspector Tester Name Role Phone Adam Hunter DO Unavailable Unavailable Allergies, Adverse Reactions, Alerts Substance Reaction Status Criticality QUETIAPINE FUMARATE Active No Infor mation Penicillins Active No Information codeine Active No Information Medications Medication Instructions Dosage Effective Dates (start - stop) Status Comments gabapentin 800 mg tablet take 1 tablet by oral route 3 times every day 800 MG - Active Vitamin D3 125 mcg (5,000 unit) tablet take 1 tablet by oral route every day 1 tablet - Active Lasix 40 mg tablet take 1 tablet by oral route every day 40 MG - Active Ambien CR 12.5 mg tablet,extended release take 1 tablet by oral route every day at bedtime 12.5 MG - Active ondansetron [address] 2 tablet by translingual route 2 times every day on top of the tongue where they will dissolve, then swallow 8 MG - Active Suboxone 8 mg-[address] 2 film by sublingual route every day allow to dissolve slowly in mouth without chewing or swallowing 2 film - Active F11.10 [id number] tizanidine 4 mg tablet take 1 tablet by oral route every 8 hours as needed not to exceed 3 doses in 24 hours. max 45 tabs per month - No Longer Active stop cyclobenzaprine Procedures Procedure Date ROUTINE VENIPUNCTURE OFFICE/OUTPATIENT VISIT, NEW Bp scrn perf rec interval DIAST BP < 80 MM HG SYST BP >=130-139MM HG PT TOBACCO USE DONE RCVD TLK OFFICE/OUTPATIENT VISIT, EST OFFICE/OUTPATIENT VISIT, EST OFFICE/OUTPATIENT VISIT, EST PSYTX PT&/FAMILY 60 MINUTES OFFICE/OUTPATIENT VISIT, EST OFFICE/OUTPATIENT VISIT, EST DRUG TEST PRSMV DIR OPT OBS DRUG TEST PRSMV DIR OPT OBS OFFICE/OUTPATIENT VISIT, EST PSYTX PT&/FAMILY 60 MINUTES DRUG TEST PRSMV DIR OPT OBS OFFICE/OUTPATIENT VISIT, EST OFFICE/OUTPATIENT VISIT, EST DRUG TEST PRSMV DIR OPT OBS OFFICE/OUTPATIENT VISIT, EST PSYTX PT&/FAMILY 60 MINUTES DRUG TEST PRSMV DIR OPT OBS OFFICE/OUTPATIENT VISIT, EST DRUG TEST PRSMV DIR OPT OBS OFFICE/OUTPATIENT VISIT, EST PSYTX PT&/FAMILY 60 MINUTES DRUG TEST PRSMV DIR OPT OBS URINALYSIS NONAUTO W/O SCOPE OFFICE/OUTPATIENT VISIT, EST PSYTX PT&/FAMILY 60 MINUTES DRUG TEST PRSMV DIR OPT OBS OFFICE/OUTPATIENT VISIT, EST PSYTX PT&/FAMILY 60 MINUTES DRUG TEST PRSMV DIR OPT OBS OFFICE/OUTPATIENT VISIT, EST PSYTX PT&/FAMILY 60 MINUTES DRUG TEST PRSMV DIR OPT OBS OFFICE/OUTPATIENT VISIT, EST PSYTX PT&/FAMILY 60 MINUTES DRUG TEST PRSMV DIR OPT OBS OFFICE/OUTPATIENT VISIT, EST PSYTX PT&/FAMILY 60 MINUTES No Charge DRUG TEST PRSMV DIR OPT OBS OFFICE/OUTPATIENT VISIT, EST PSYTX PT&/FAMILY 60 MINUTES DRUG TEST PRSMV DIR OPT OBS OFFICE/OUTPATIENT VISIT, EST PSYTX PT&/FAMILY 60 MINUTES No Charge DRUG TEST PRSMV DIR OPT OBS OFFICE/OUTPATIENT VISIT, EST PSYCH DIAGNOSTIC EVALUATION OFFICE/OUTPATIENT VISIT, EST DRUG TEST PRSMV DIR OPT OBS OFFICE/OUTPATIENT VISIT, EST OFFICE/OUTPATIENT VISIT, EST DRUG TEST PRSMV DIR OPT OBS OFFICE/OUTPATIENT VISIT, EST DRUG TEST PRSMV DIR OPT OBS OFFICE/OUTPATIENT VISIT, EST DRUG TEST PRSMV DIR OPT OBS OFFICE/OUTPATIENT VISIT, EST DRUG TEST PRSMV DIR OPT OBS OFFICE/OUTPATIENT VISIT, EST DRUG TEST PRSMV DIR OPT OBS OFFICE/OUTPATIENT VISIT, EST DRUG TEST PRSMV DIR OPT OBS OFFICE/OUTPATIENT VISIT, EST DRUG TEST PRSMV DIR OPT OBS OFFICE/OUTPATIENT VISIT, EST DRUG TEST PRSMV DIR OPT OBS OFFICE/OUTPATIENT VISIT, EST DRUG TEST PRSMV DIR OPT OBS OFFICE/OUTPATIENT VISIT, EST DRUG TEST PRSMV DIR OPT OBS OFFICE/OUTPATIENT VISIT, EST DRUG TEST PRSMV DIR OPT OBS OFFICE/OUTPATIENT VISIT, EST OFFICE/OUTPATIENT VISIT, EST DRUG TEST PRSMV DIR OPT OBS DRUG SCREENING FENTANYL DRUG SCREENING FENTANYL DRUG TEST PRSMV DIR OPT OBS OFFICE/OUTPATIENT VISIT, EST OFFICE/OUTPATIENT VISIT, EST DRUG SCREENING FENTANYL DRUG TEST PRSMV DIR OPT OBS IMMUNIZATION ADMIN HEP A VACCINE, ADULT IM OFFICE/OUTPATIENT VISIT, EST DRUG SCREENING FENTANYL DRUG TEST PRSMV DIR OPT OBS OFFICE/OUTPATIENT VISIT, EST Advance Directives Directive Yes / No Effective Date File Name No Information Encounters Encounter Description Practice Location Reason(s) For Visit Diagnoses Date Provider Providers Copied on Encounter [facility], [address] [place] [address], [id number] , [place] tel: [phone] [facility] No Information 5 Plank DO Adam. [address] [place] [address], [id number] , [place]. tel: [phone] [facility], [address] [place] [address], [id number] , [place] tel: [phone] [facility] Encounter for screening colonoscopy 5 Plank DO Adam. [address] [place] [address], [id number] , [place]. tel: [phone] [facility], [address] [place] [address], [id number] , [place] tel: [phone] [facility] Encounter for screening for cervical cancer 5 Plank DO Adam. [address] [place] [address], [id number] , [place]. tel: [phone] [facility], [address] [place] [address], [id number] , [place] tel: [phone] [facility] No Information 4 Plank DO Adam. [address], [place], [id number] , [place]. tel: [phone] OFFICE/OUTPA TIENT VISIT, [facility], [address], [place], [id number] , [place] tel: [phone] [facility] Establish Care (chief complaint) Lab Draw (chief complaint) Need for hepatitis C screening testEncounter for screening for HIVDiabetes mellitus screeningLipid screeningPostlamine ctomy syndrome, not elsewhere classifiedNicotine dependence, unspecified, uncomplicatedUnspec ified urinary incontinenceOther reduced mobility 4 Plank DO Adam. [address], [place], [id number] , [place]. tel: [phone] [facility], [address] [place] [address], [id number] , [place] tel: [phone] [facility] Opioid use, unspecified, uncomplicated 2 Wesly Beyer. [address] [place], [address], [place]. tel: [phone] [facility], [address] [place] [address], [id number] , [place] tel: [phone] [facility] Opioid use, unspecified, uncomplicatedDepres dm NOSGeneralized anxiety disorder 2 Wesly Hillcy. [address] [place] [address], [address], [place]. tel: [phone] OFFICE/OUTPA TIENT VISIT, [facility], [address], [place], [id number] , [place] tel: [phone] [facility] Suboxone (chief complaint) Opioid dependence, uncomplicatedBody mass index [BMI] 39.0-39.9, adult 1 Pavlock DO Max. [address], [place], [id number] , [place]. tel: [phone] OFFICE/OUTPA TIENT VISIT, [facility], [address], [place], [id number] , [place] tel: [phone] [facility] f/u (chief complaint) Body mass index [BMI]40.0-44.9, adultOpioid dependence, uncomplicated Jun- 1 [facility]. [address] [place] [address], [id number] , [place]. tel: [phone] OFFICE/OUTPA TIENT VISIT, EST [facility], [address], [place], [id number] , [place] tel: [phone] [facility] Suboxone (chief complaint) Body mass index [BMI]40.0-44.9, adultCompression fracture of L1 vertebra, sequelaLow back pain, unspecified 1 [facility]. [address], [place], [id number] , [place]. tel: [phone] [facility], [address] [place] [address], [id number] , [place] tel: [phone] [facility] Low back pain associated with a spinal disorder other than radiculopathy or spinal stenosis Sep-2 1 [facility]. [address], [place], [id number] , [place]. tel: [phone] PSYTX PT&/FAMILY 60 MINUTES [facility], [address] [place] [address], [id number] , [place] tel: [phone] [facility] Opioid use, unspecified, uncomplicatedDepres dm NOSGeneralized anxiety disorder May-0 1 Wesly Beyer. [address] [place] [address], [address], [place]. tel: [phone] OFFICE/OUTPA TIENT VISIT, [facility], [address] [place] [address], [id number] , [place] tel: [phone] [facility] Suboxone (chief complaint) Body mass index [BMI]40.0-44.9, adultLow back pain associated with a spinal disorder other than radiculopathy or spinal stenosisOpioid dependence, uncomplicatedAnxiet y Sep- 1 [facility] Max. [address], [place], [id number] , [place]. tel: [phone] OFFICE/OUTPA TIENT VISIT, [facility], [address], [place], [id number] , [place] tel: [phone] [facility] Suboxone (chief complaint) Wound of skinAnxietyOpioid dependence, uncomplicated 1 [facility] Max. [address], [place], [id number] , [place]. tel: [phone] [facility], [address], [place], [id number] , [place] tel: [phone] [facility] Opioid use, unspecified, uncomplicatedDepres dm NOSGeneralized anxiety disorder 1 Wesly Beyer. [address] [place] [address], [address], [place]. tel: [phone] OFFICE/OUTPA TIENT VISIT, [facility], [address], [place], [id number] , [place] tel: [phone] [facility] Suboxone (chief complaint) UDS (chief complaint) Opioid dependence, uncomplicatedBody mass index [BMI]40.0-44.9, adultAnxietyCompres dm fracture of L1 vertebra, sequela 1 [facility]. [address], [place], [id number] , [place]. tel: [phone] PSYTX PT&/FAMILY 60 MINUTES [facility], [address], [place], [id number] , [place] tel: [phone] [facility] Opioid use, unspecified, uncomplicatedDepres dm NOSGeneralized anxiety disorder 1 Wesly Beyer. [address] [place] [address], [address], [place]. tel: [phone] OFFICE/OUTPA TIENT VISIT, [facility], [address], [place], [id number] , [place] tel: [phone] [facility] SUBOXONE (chief complaint) UDS (chief complaint) Body mass index [BMI]40.0-44.9, adultOpioid dependence, uncomplicatedAnxiet yCompression fracture of L1 vertebra, sequela 1 [facility] Max. [address], [place], [id number] , [place]. tel: [phone] OFFICE/OUTPA TIENT VISIT, [facility], [address], [place], [id number] , [place] tel: [phone] [facility] SUBOXONE (chief complaint) UDS (chief complaint) Body mass index [BMI] 39.0-39.9, adultAnxietyEdema extremitiesOpioid dependence, uncomplicatedCompre ssion fracture of L1 vertebra, sequela 1 [facility]. [address], [place], [id number] , [place]. tel: [phone] OFFICE/OUTPA TIENT VISIT, [facility], [address], [place], [id number] , [place] tel: [phone] [facility] Suboxone (chief complaint) Body mass index [BMI] 39.0-39.9, adultOpioid dependence, uncomplicatedCompre ssion fracture of L1 vertebra, sequela 1 [facility]. [address], [place], [id number] , [place]. tel: [phone] PSYTX PT&/FAMILY 60 MINUTES [facility], [address], [place], [id number] , [place] tel: [phone] [facility] Opioid use, unspecified, uncomplicatedDepres dm NOSGeneralized anxiety disorder 1 Wesly Beyer. [address] [place], [address], [place]. tel: [phone] OFFICE/OUTPA TIENT VISIT, [facility], [address] [place] [address], [id number] , [place] tel: [phone] [facility] SUBOXONE (chief complaint) UDS (chief complaint) Opioid use, unspecified, uncomplicatedBody mass index [BMI]40.0-44.9, adultUrinary hesitancyTobacco abuseAnxiety 1 [facility]. [address] [place] [address], [id number] , [place]. tel: [phone] OFFICE/OUTPA TIENT VISIT, [facility], [address] [place] [address], [id number] , [place] tel: [phone] [facility] Suboxone (chief complaint) UDS (chief complaint) Opioid dependence, uncomplicatedBody mass index [BMI]40.0-44.9, adultCompression fracture of L1 vertebra, sequela 1 [facility]. [address] [place] [address], [id number] , [place]. tel: [phone] PSYTX PT&/FAMILY 60 MINUTES [facility], [address] [place] [address], [id number] , [place] tel: [phone] [facility] Opioid use, unspecified, uncomplicatedDepres dm NOSGeneralized anxiety disorder 1 Wesly Beyer. [address] [place] [address], [address], [place]. tel: [phone] [facility], [address] [place] [address], [id number] , [place] tel: [phone] [facility] Opioid use, unspecified, uncomplicatedDepres dm NOSGeneralized anxiety disorder 1 Wesly Beyer. [address] [place] [address], [address], [place]. tel: [phone] OFFICE/OUTPA TIENT VISIT, [facility], [address] [place] [address], [id number] , [place] tel: [phone] [facility] Suboxone (chief complaint) UDS (chief complaint) Opioid dependence, uncomplicatedBody mass index [BMI]40.0-44.9, adultUrinary hesitancyNerve pain 1 Pavlock DO Max. [address], [place], [id number] , [place]. tel: [phone] PSYTX PT&/FAMILY 60 MINUTES [facility], [address], [place], [id number] , [place] tel: [phone] [facility] Opioid use, unspecified, uncomplicatedDepres dm NOSGeneralized anxiety disorder 1 Wesly Beyer. [address] [place], [address], [place]. tel: [phone] [facility], [address], [place], [id number] , [place] tel: [phone] [facility] Opioid use, unspecified, uncomplicatedDepres dm NOSGeneralized anxiety disorder 0 Wesly Beyer. [address] [place], [address], [place]. tel: [phone] OFFICE/OUTPA TIENT VISIT, [facility], [address], [place], [id number] , [place] tel: [phone] [facility] Suboxone (chief complaint) UDS (chief complaint) Body mass index [BMI]40.0-44.9, adultOpioid dependence, uncomplicatedAnxiet y 0 Pavlock DO Max. [address], [place], [id number] , [place]. tel: [phone] PSYTX PT&/FAMILY 60 MINUTES [facility], [address], [place], [id number] , [place] tel: [phone] [facility] Opioid use, unspecified, uncomplicatedDepres dm NOSGeneralized anxiety disorder 0 Wesly Beyer. [address] [place] [address], [address], [place]. tel: [phone] OFFICE/OUTPA TIENT VISIT, [facility], [address], [place], [id number] , [place] tel: [phone] [facility] Suboxone (chief complaint) depression (chief complaint) Opioid dependence, uncomplicatedBody mass index [BMI]40.0-44.9, adultAnxietyUrinary tract infection without hematuria, site unspecified [address] [facility] DO Max. [address], [place], [id number] , [place]. tel: [phone] PSYTX PT&/FAMILY 60 MINUTES [facility], [address], [place], [id number] , [place] tel: [phone] [facility] Opioid use, unspecified, uncomplicatedDepres dm NOSGeneralized anxiety disorder 0 Wesly Beyer. [address] [place], [address], [place]. tel: [phone] OFFICE/OUTPA TIENT VISIT, [facility], [address] [place] [address], [id number] , [place] tel: [phone] [facility] Suboxone (chief complaint) UDS (chief complaint) Opioid dependence, uncomplicatedBody mass index [BMI]40.0-44.9, adultCompression fracture of L1 vertebra, sequelaAnxiety [address] [facility] DO Max. [address], [place], [id number] , [place]. tel: [phone] PSYTX PT&/FAMILY 60 MINUTES [facility], [address] [place] [address], [id number] , [place] tel: [phone] [facility] Op[facility]id use, unspecified, uncomplicatedDepres dm NOSGeneralized anxiety disorder 0 Wesly Beyer. [address] [place], [address], [place]. tel: [phone] OFFICE/OUTPA TIENT VISIT, [facility], [address] [place] [address], [id number] , [place] tel: [phone] [facility] Suboxone (chief complaint) UDS (chief complaint) Opioid dependence, uncomplicatedBody mass index (BMI) 40.0-44.9, adultEdema extremitiesAnxiety 0 Pavlock DO Max. [address], [place], [id number] , [place]. tel: [phone] PSYTX PT&/FAMILY 60 MINUTES [facility], [address], [place], [id number] , [place] tel: [phone] [facility] Opioid use, unspecified, uncomplicatedDepres dm NOSGeneralized anxiety disorder 0 Wesly Beyer. [address] [place], [address], [place]. tel: [phone] [facility], [address] [place] [address], [id number] , [place] tel: [phone] [facility] No Information 0 Wesly Beyer. [address] [place] [address], [address], [place]. tel: [phone] OFFICE/OUTPA TIENT VISIT, [facility], [address] [place] [address], [id number] , [place] tel: [phone] [facility] Suboxone (chief complaint) UDS (chief complaint) back pain (chief complaint) Uncomplicated opioid abuseBody mass index (BMI) 40.0-44.9, adultAnxietyCompres dm fracture of L1 vertebra, sequela 0 Pavlock DO Max. [address], [place], [id number] , [place]. tel: [phone] PSYTX PT&/FAMILY 60 MINUTES [facility], [address] [place] [address], [id number] , [place] tel: [phone] [facility] Opioid use, unspecified, uncomplicatedDepres dm NOSGeneralized anxiety disorder 0 Wesly Beyer. [address] [place] [address], [address], [place]. tel: [phone] OFFICE/OUTPA TIENT VISIT, [facility], [address] [place] [address], [id number] , [place] tel: [phone] [facility] Suboxone (chief complaint) UDS (chief complaint) depression (chief complaint) Uncomplicated opioid abuseBody mass index (BMI) 40.0-44.9, adultAnxietyDepress ion NOSDental abscess 0 Pavlock DO Max. [address], [place], [id number] , [place]. tel: [phone] PSYTX PT&/FAMILY 60 MINUTES [facility], [address] [place] [address], [id number] , [place] tel: [phone] [facility] Opioid use, unspecified, uncomplicatedDepres dm NOSGeneralized anxiety disorder 0 Wesly Beyer. [address] [place] [address], [address], [place]. tel: [phone] [facility], [address] [place] [address], [id number] , [place] tel: [phone] [facility] No Information 0 Wesly Beyer. [address] [place] [address], [address], [place]. tel: [phone] [facility], [address] [place] [address], [id number] , [place] tel: [phone] [facility] Urinary hesitancy 0 Pavlock DO Max. [address], [place], [id number] , [place]. tel: [phone] OFFICE/OUTPA TIENT VISIT, EST [facility], [address] [place] [address], [id number] , [place] tel: [phone] [facility] Suboxone (chief complaint) UDS (chief complaint) Urinary symptoms (chronic) (chief complaint) Uncomplicated opioid abuseBody mass index (BMI) 40.0-44.9, adultLow back pain associated with a spinal disorder other than radiculopathy or spinal stenosisUrinary hesitancy 0 Pavlock DO Max. [address], [place], [id number] , [place]. tel: [phone] PSYCH DIAGNOSTIC EVALUATION [facility], [address], [place], [id number] , [place] tel: [phone] [facility] Opioid use, unspecified, uncomplicatedDepres dm NOSGeneralized anxiety disorder 0 Wesly [place]yr. [address] [place], [address], [place]. tel: [phone] OFFICE/OUTPA TIENT VISIT, [facility], [address], [place], [id number] , [place] tel: [phone] [facility] Swelling (chief complaint) Urinary tract infection without hematuria, site unspecified 0 Pavlock DO Max. [address], [place], [id number] , [place]. tel: [phone] OFFICE/OUTPA TIENT VISIT, [facility], [address], [place], [id number] , [place] tel: [phone] [facility] SUBOXONE (chief complaint) Drug Screen (chief complaint) depression (chief complaint) Uncomplicated opioid abuseBody mass index (BMI) 40.0-44.9, adultAnxietyPrimary osteoarthritis, unspecified site 0 Pavlock DO Max. [address] [place] [address], [id number] , [place]. tel: [phone] OFFICE/OUTPA TIENT VISIT, [facility], [address], [place], [id number] , [place] tel: [phone] [facility] Suboxone (chief complaint) Chest pain (chief complaint) Uncomplicated opioid abuseChest pain at restAnxietyDizzines s 0 Pavlock DO Max. [address], [place], [id number] , [place]. tel: [phone] OFFICE/OUTPA TIENT VISIT, [facility], [address], [place], [id number] , [place] tel: [phone] [facility] SUBOXONE (chief complaint) DRUG SCREEN (chief complaint) Uncomplicated opioid abuseChronic GERD Dec- 0 Pavlock DO Max. [address], [place], 75[address]1429 , [place]. tel:[phone] OFFICE/OUTPA TIENT VISIT, [facility], [address], [place], 3745[address] , [place] tel: [phone] [facility] SUBOXONE (chief complaint) UDS (chief complaint) Dizziness (chief complaint) Body mass index (BMI) 40.0-44.9, adultUncomplicated opioid abuseDizzinessEdema extremities Nov- 0 Pavlock DO Max. [address], [place], [id number] , [place]. tel: [phone] OFFICE/OUTPA TIENT VISIT, [facility], [address], [place], [id number] , [place] tel: [phone] [facility] SUBOXONE (chief complaint) DRUG SCREEN (chief complaint) Dizziness (chief complaint) Body mass index (BMI) 40.0-44.9, adultUncomplicated opioid abuseAnxietyTobacco abuse Fe 0 Pavlock DO Max. [address], [place], [id number] , [place]. tel: [phone] OFFICE/OUTPA TIENT VISIT, [facility], [address], [place], [id number] , [place] tel: [phone] [facility] SUBOXONE (chief complaint) DRUG SCREEN (chief complaint) Swelling (chief complaint) Uncomplicated opioid abuseBody mass index (BMI) 40.0-44.9, adultAnxietyInsomni a, unspecified typeEdema extremities 0 Pavlock DO Max. [address], [place], 644[address]28[address] , [place]. tel:[phone] OFFICE/OUTPA TIENT VISIT, [facility], [address], [place], [id number] , [place] tel: [phone] [facility] SUBOXONE (chief complaint) DRUG SCREEN (chief complaint) Uncomplicated opioid abuseBody mass index (BMI) 40.0-44.9, adultAnxietyTobacco abuse 9 [facility] [address], [place], [id number] , [place]. tel: [phone] OFFICE/OUTPA TIENT VISIT, [facility], [address], [place], [id number] , [place] tel: [phone] [facility] SUBOXONE (chief complaint) DRUG SCREEN (chief complaint) back pain (chief complaint) Uncomplicated opioid abuseBody mass index (BMI) 38.0-38.9, adultTobacco abuseAnxietyBronchi tisLow back pain associated with a spinal disorder other than radiculopathy or spinal stenosis 9 [facility]. [address], [place], [id number] , [place]. tel: [phone] OFFICE/OUTPA TIENT VISIT, [facility], [address], [place], [id number] , [place] tel: [phone] [facility] SUBOXONE (chief complaint) DRUG SCREEN (chief complaint) Uncomplicated opioid abuseBody mass index (BMI) 38.0-38.9, adultLow back pain associated with a spinal disorder other than radiculopathy or spinal stenosis [address] [facility] DO [place]. [address], [place], [address]14 , [place]. tel: [phone] OFFICE/OUTPA TIENT VISIT, [facility], [address], [place], [id number] , [place] tel: [phone] [facility] SUBOXONE (chief complaint) DRUG SCREEN (chief complaint) Degenerative disc disease, cervicalCompression fracture of L1 vertebra, sequelaLow vitamin D levelAnxietyUncompl icated opioid abuseBody mass index (BMI) 38.0-38.9, adult 9 [facility] [address], [place], 978[address]384 , [place]. tel: [phone] OFFICE/OUTPA TIENT VISIT, [facility], [address], [place], 608[address]808 , [place] tel: [phone] [facility] SUBOXONE (chief complaint) DRUG SCREEN (chief complaint) back pain (chief complaint) Body mass index (BMI) 39.0-39.9, adultUncomplicated opioid abuseLow back pain associated with a spinal disorder other than radiculopathy or spinal stenosisAnxiety 9 Pavlock DO Max. [address], [place], 616124414 , [place]. tel: [phone] [facility], [address], [place], 654454249 , [place] tel: [phone] [facility] Low back pain associated with a spinal disorder other than radiculopathy or spinal stenosis Pavlock DO Max. [address], [place], 233776584 , [place]. tel: [phone] OFFICE/OUTPA TIENT VISIT, [facility], [address], [place], [id number] , [place] tel: [phone] [facility] SUBOXONE (chief complaint) DRUG SCREEN (chief complaint) Uncomplicated opioid abuseBody mass index (BMI) 39.0-39.9, adultLow back pain associated with a spinal disorder other than radiculopathy or spinal stenosisAnxiety Pavlock DO Max. [address], [place], [id number] , [place]. tel: [phone] OFFICE/OUTPA TIENT VISIT, [facility], [address], [place], [id number] , [place] tel: [phone] [facility] SUBOXONE (chief complaint) DRUG SCREEN (chief complaint) Uncomplicated opioid abuseBody mass index (BMI) 39.0-39.9, adultAnxietyDegener ative disc disease, cervicalLow back pain associated with a spinal disorder other than radiculopathy or spinal stenosis 9 Pavlock DO Max. [address], [place], [id number] , [place]. tel: [phone] OFFICE/OUTPA TIENT VISIT, [facility], [address], [place], [id number] , [place] tel: [phone] [facility] SUBOXONE (chief complaint) DRUG SCREEN (chief complaint) Body mass index (BMI) 38.0-38.9, adultUncomplicated opioid abuseAnxiety [facility]. [address], [place], [id number] , [place]. tel: [phone] OFFICE/OUTPA TIENT VISIT, [facility], [address] [place] [address], [id number] , [place] tel: [phone] [facility] SUBOXONE (chief complaint) DRUG SCREEN (chief complaint) Body mass index (BMI) 39.0-39.9, adultUncomplicated opioid abuseAnxietyLow back pain associated with a spinal disorder other than radiculopathy or spinal stenosis 9 [facility]. [address] [place] [address], [id number] , [place]. tel: [phone] OFFICE/OUTPA TIENT VISIT, [facility], [address], [place], [id number] , [place] tel: [phone] [facility] SUBOXONE (chief complaint) DRUG SCREEN (chief complaint) Body mass index (BMI) 40.0-44.9, adultBronchitisDege nerative disc disease, cervicalAnxietyUnco mplicated opioid abuse 9 [facility]. [address], [place], [id number] , [place]. tel: [phone] [facility], [address] [place] [address], [id number] , [place] tel: [phone] [facility] Suboxone (chief complaint) Drug Screen (chief complaint) Body mass index (BMI) 40.0-44.9, adultAnxietyUncompl icated opioid abuse 9 [facility]. [address], [place], [id number] , [place]. tel: [phone] [facility], [address], [place],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 didnt pay her speeding ticket. Pt states at her last visit, she got a negative vibe from me and Dr. Niño. Pt states that she knows she needs to go down on some of her medications but she thinks that we think she is prolonging it on purpose. OARRS completed, last filled Ambien 04/28, Suboxone 04/25 & Valium 04/21, Gabapentin 04/18TGrodi LPNWe reviewed Pt hand swelling and Pt states most days it is just a little numb with no swelling but some days the hand is very numb and swells a lot that is when she needs the extra diuretic UDS UDS performed, p t + for BUP & BENZOTGrodi [employer] back pain The problem is s table. It occurs persistently. Location of pain is lower back and neck. Pain is radiated to the left ankle, left arm, left calf, left foot and left thigh. The patient describes the pain as burning and numbness. Symptoms are aggravated by daily activities. Symptoms are relieved by pain meds/drugs. Suboxone Pt here today fo r Suboxone film refill. PT HAS BEEN ON 16MG SINCE 2016Pt is attending counseling with Kayleen Jarrell. Talked to Kayleen regarding patient and she thinks patient is too dependent on her medications. Pt states she feels like crap because she states she is withdrawing from her Gabapentin. OARRS completed last filled Gabapentin 04/18, Ambien 03/31, Suboxone 03/27, & Valium 03/21TGrodi [employer] UDS UDS performed, p t + for BUP & BENZOTGrodi [employer] Suboxone Pt here today fo r Suboxone film refill. PT HAS BEEN ON 16MG SINCE 2016. Pt is attending counseling with Kayleen JarrellPt states that she has not made it to the back specialist. Pt states that she is at a crossroad with her back. Pt states she is having second thoughts about having her back surgery. Pt states she knows once you have surgery you usually need another so she is worried about that. Pt states she is having issues with her teeth so she is going to see [facility] on Tuesday at 12:30pm. Pt states she just doesnt care about anything right now. Pt states she is not suicidal but upset. Pt states she does not feel comfortable in her body right now. Pt states she feels like Sandra is intruding on her life right now and she feels like she has enough help. OARRS completed last filled Ambien 03/01, Suboxone 02/25 & Valium 02/23TGrodi [employer] UDS UDS performed, p t + for BUP & BENZOTGrodi [employer] depression This is a follow up visit. There is worsening of previously reported symptoms. The patient reports functioning as somewhat difficult. The patient presents with anxious/fearful thoughts, compulsive thoughts, decreased need for sleep, depressed mood, difficulty concentrating, difficulty falling asleep, diminished interest or pleasure, excessive worry, fatigue, feelings of guilt and paranoia but denies difficulty staying asleep or poor judgment. The depression is aggravated by traumatic memories. The depression is associated with chronic pain and irritability. The patient denies any headache, nausea, sweating, trembling, vomiting and weight gain. Urinary symptoms (chronic) Patie nt reports no pain. It occurs constantly. The problem is worse. Cause of leakage is unknown. The patient denies receiving treatment. The neurologic symptoms/diseases are numbness in extremities. Associated symptoms include slow stream and strain to urinate. Pertinent negatives include constipation, dysuria, fecal incontinence, urinary frequency, urinary hesitancy and pain. Suboxone Pt here today fo r Suboxone film refill. PT HAS BEEN ON 16MG SINCE 2016. Pt attended a counseling apt today with Kayleen Darwin states she had an accident last night and cut her leg. PT states she cut it on the bed rail. PT states she got 10 stitches. PT states she is having trouble with urination. Pt states she has a hard time getting urine out. Pt needs referral to urology. Pt's Valium dose needs decreased this visit. Last time decreased was 09/08/2019PT NEEDS REFILLS ON VISTARIL, IMITREX & LASIX. OARRS completed, last filled Ambien 01/31, Valium 01/27, & Suboxone 01/24TGrodi [employer] UDS UDS performed, p t + for BUP & BENZOTGrodi [employer] Swelling The swelling occ urred suddenly and is constant. The severity is mild and has worsened. The patient denies any history of trauma. The patient has aching swelling in the bilateral leg. The patient does not have erythema or pain. Previous diagnostic studies and/or treatments that have been performed/administered include labs which revealed done at hospital 10 days ago. Previous diagnostic studies and/or treatments that have not been performed/administered include an excision, foreign body removal and an incision/drainage. The patient denies any aggravating factors. Interventions the patient has tried have not provided any relief. The swelling is associated with fatigue, generalized weakness and joint pain. The patient denies any appetite change, bleeding, blistering, bruising, chest pain, dyspnea, fever, lymphadenopathy, paroxysmal nocturnal dyspnea, rash, skin discoloration, warmth and weight gain. Additional information: Pt also notes she is having urinary issues.. SUBOXONE Pt here today fo r Suboxone film refill. PT HAS BEEN ON 16MG SINCE 2016Pt is going to be scheduled with Kayleen Jarrell for counseling. Pt was told that if she does not show up for Kayleen, she will not see Dr. Niño. Pt verbalized understanding. Pt states she is feeling much better but states that the day we sent her to the hospital her dad had to have emergency triple bypass heart surgery. Pt states the day of his surgery the doctors told her they could rotate to see him and they kept getting a temp on her. Pt states another lady came and took her temp. Pt states the surgery went well but the doctors told her that there can be changes in a person. OARRS completed, last filled Suboxone 01/18 for 8 days, Valium 01/18 for 10 days, Gabapentin 01/13, Ambien 01/01TGrodi [employer] Drug Screen Rapid urine drug screen performed, pt + for BUP & BENZOTGrodi [employer] depression There is worseni ng of previously reported symptoms. The patient reports functioning as very difficult. The patient presents with anxious/fearful thoughts, compulsive thoughts, decreased need for sleep, depressed mood, difficulty concentrating, excessive worry, fatigue, feelings of guilt, poor judgment, racing thoughts and restlessness but denies feelings of invulnerability or thoughts of or suicide. The depression is aggravated by social interactions. The patient's relieving factors are medication. The depression is associated with chronic pain and headache. The patient denies any irritability, nausea, sweating and trembling. Chest pain The patient pres ents with a complaint of Chest pain. The symptom(s) began suddenly. The problem occurs intermittently. The patient rates the severity of the Chest pain as mild to moderate. The patient also complains of chest discomfort, diaphoresis, dyspnea, fatigue, nausea, palpitations and vomiting. Relevant history for this patient includes tobacco use, family history of coronary artery disease, hyperlipidemia and hypertension. The symptoms are aggravated by anxiety and exertion but not aggravated by position or food. The patient did not respond to antacid or change in position. The Chest pain is associated with chronic cough, dependent edema, dyspnea on exertion, generalized weakness, headache and lightheadedness. The patient denies any abdominal pain, anorexia, claudication, hemoptysis, malaise, nocturia or syncope. Additional information: Pt states this started about 10 days go she had the chest pain very bad and then fell and hurt her back, now having so much dizziness she having trouble walking. Suboxone Pt here today fo r Suboxone film refill. PT HAS BEEN ON 16MG SINCE 2016.[facility] Pt complains of being very dizzy. Pt is very emotional today, very slow with words. Pt states her grandmothers anniversary came up and she got in a bad argument with her son that bothers her. Pt states she has been in bed for 2 weeks since, she cant wash her hair and has a headache, and thought that she was having a heart attack, that pain went down her arm. Patients pulse ox on presentation kept dropping to 88% highest was 93%. Pt was very dizzy, & short of breath. Did not get patient out of wheelchair to do urine or weight due to dizziness. Went and got Mita & Dr. Niño because patient needed evaluated and driving home herself was a concern. Both were in room and after talking with patient, EMS was called for patient to go to ER to be evaluated. OARRS completed, last filled Gabapentin 01/13, Ambien 01/01, Suboxone 12/21 & Valium 12/19TGrodi [facility] SUBOXONE pt here today fo r Suboxone film refill. PT HAS BEEN ON 16MG SINCE 2016. Pt states that her mouth has a metal taste to it & a sore throat. Pt states she called her dentist but states they are only doing emergency apts. Pt states she got on Web [employer] and searched her symptoms and is worried about this. PT is attending counseling at [facility] in [facility] NEEDS REFILLS ON FLEXERIL, VALIUM, LASIX, LISINOPRIL/HCTZ, MIRALAX, OMEPRAZOLE, ALDACTONE & WELLBUTRIN. OARRS completed last filled Ambien 11/22, Valium 11/24, & Suboxone 11/21TGrodi [employer] ,above was reviewed and agreed with [facility] DRUG SCREEN Rapid urine drug screen performed, pt + for BUP & BENZOTGrodi [employer] UDS UDS+ BUP, BZO. S Tio RN SUBOXONE Pt here for Subo xone refill. Pt has been on 16mg since 2016. Pt is going to [facility] for counseling. OARRS COMPLETED, LAST FILLED ZOLPIDEM 11/03, DIAZEPAM 10/31, SUBOXONE 10/27. Pt c/o nausea and dizziness, denies any further issues or concerns. Jes MERA Dizziness Onset was 3 mariela hs ago. The problem is chronic. It occurs intermittently. The patient describes it as (an) imbalance and swimming. It occurs while bending, extending neck and turning neck. Symptom is aggravated by rapid movement and turning. Relieving factors include medication (meclizine). Associated symptoms include headache and incoordination. Pertinent negatives include chest pain, diplopia, ear drainage, fever, hearing loss, loss of consciousness, nausea, neck stiffness, otalgia, palpitations, paresthesia, seizures, slurred speech and tinnitus. Dizziness Onset was gradua l. Severity is moderate. The problem is improving. It occurs intermittently. The patient describes it as (an) spinning and unstable horizon. It occurs while extending neck, turning in bed and turning neck. Symptom is aggravated by bending, getting out of bed, rapid movement and turning. Relieving factors include medication (meclizine) and rest. Associated symptoms include incoordination, nausea and tinnitus. Pertinent negatives include chest pain, diplopia, ear drainage, fever, hearing loss, loss of consciousness, palpitations, paresthesia, seizures and slurred speech. SUBOXONE Pt here today fo r Suboxone film refill. PT HAS BEEN ON 16MG SINCE 2016. PT was recently in ER for Vertigo. Pt states she is still dizzy when she turns her head too quickly. Pt was prescribed Meclizine and states it is working well for her. Pt would like a refill on these. Pt states they did a CAT scan and the bones in her L ear were inflamed. PT NEEDS REFILLS ON LISINOPRIL/HCTZ, Pt is attending counseling at [facility] in [place]. Pt was last seen 2/3 for an apt and is rescheduled today at 2PM. OARRS completed, last filled Ambien 10/06, Gabapentin 10/04, Valium 10/01, & Suboxone 09/27TGrodi [employer] DRUG SCREEN Rapid urine drug screen performed, pt + for BUP & BENZOTGrodi [employer] Swelling The swelling is constant. The severity is moderate and remained unchanged. The patient has swelling. Previous diagnostic studies and/or treatments that have been performed/administered include. Previous diagnostic studies and/or treatments that have not been performed/administered include an excision, foreign body removal, an incision/drainage and labs. The swelling is aggravated by local pressure, standing and walking. The patient had a response to elevation and a fair response to medication(s) (lasix). The swelling is associated with bruising, decreased mobility, dyspnea, generalized weakness, malaise, myalgia and skin discoloration. The patient denies any appetite change, bleeding, blistering, chest pain, fatigue, fever, paroxysmal nocturnal dyspnea and purulent drainage. SUBOXONE Pt here today fo r Suboxone film refill. PT HAS BEEN ON 16MG SINCE 2016. Pt is very emotional today but wants to wait to disclose to Dr. Niño. I have a student nurse in with me today and she does not want to talk about anything with her. Pt states one of her front teeth broke and wants to talk about that. Pt states something is going on with her son but will not disclose. Pt states she has been having problems with retaining fluid. Pt sates she has been taking 2 lasix some days instead of the prescribed 1 tablet. PT NEEDS REFILLS ON LISINOPRIL/HCTZ, AMBIEN, CYMBALTA, ZOFRAN, FLEXERIL, NICOTINE PATCHES Pt is attending counseling with [facility] in [place]. Pt states she has an apt on TuesdayPt states she has an apt with Dr. Hurt on 10/04. OARRS completed, last filled Valium 09/08, Ambien 09/06, & Suboxone 08/30TGrodi [employer] DRUG SCREEN Rapid urine drug screen performed, pt + for BUP & BENZOTGrodi [employer] SUBOXONE Pt here today fo r Suboxone film refill. PT HAS BEEN ON 16 MG SINCE 2017. Pt is attending counseling at [facility] in [place]. Talked to Mel from there verifying patients apt. Pt states that the counselor may send her out to another provider, because Mel does mainly Drug and Alcohol. Pt states her next apt is 1/2Pt states she is not sure if she is going to be able to quit smoking to get her surgery. Pt states she is most worried about putting more weight on after the surgery. PT self referred herself to Dr. Dela Cruz office. She said the office called her to schedule but she has not called them back yet. PT HAS GAINED 10 POUNDS IN 2 WEEKS. PT NEEDS REFILLS ON VALIUM, FLEXERIL, CYMBALTA, & LISINOPRIL/HCTZOARRS completed, last filled Valium 08/16, Suboxone 08/16 for 25 days, Ambien 08/09 & Gabapentin 07/19 for 90 daysTGrodi LPNWe had a very long conversation about the weight gain and her smoking and her anxiety and how this all works together and how with the need for her back surgery the smoking is more important to stop then the weight gain DRUG SCREEN Rapid urine drug screen performed, pt + for BUP & BENZOTGrodi [employer] back pain Severity level i s moderate-severe. The problem is stable. It occurs persistently. Location of pain is lower back.The patient describes the pain as deep and numbness. Context: no injury. Symptoms are aggravated by bending, changing positions, defecation, sneezing, standing, twisting and walking. Symptoms are relieved by injection and pain meds/drugs. SUBOXONE Pt here today fo r Suboxone film refill. PT HAS BEEN ON 16MG SINCE 2017. PT states she thinks she has bronchitis. PT states it has been going on for about a week and a half. Pt has thick mucous coming up. PT has chest tightness. Pt states that she found out why they have not scheduled her surgery. Pt states at [facility] will not perform any surgeries on a patient who smokes. Pt states she now needs to quit smoking. Pt is requesting Nicotine Patches. Pt states that she has to be 2 weeks smoke free before they will do the surgery. PT states she switched counseling services. PT states she has an apt today at [facility] in [place]. PT states her dad tried to commit suicide and is in [place] right now. Pt states that she did not want to tell her counselor this. PT NEEDS REFILLS ON AMBIEN, FLEXERIL, CYMBALTA, LASIX, OMEPRAZOLE & ZOFRAN. Tried to reschedule patient in 2 weeks due to noncompliance with counseling. Pt states even with everything going on". I told her she was warned last month if she did not attend her apt she would have to come back in 2 weeks. Pt states we can call to verify her apt today. I told her that I cant do that because they do not have a release on file and that does not mean she will go. Every apt pt has something seems to come up. Pt refused to schedule and wants to talk with Dr. Niño about it. OARRS completed, last filled Ambien 08/09, Suboxone 07/19, Gabapentin 07/19, & Valium 07/19TGrodi [employer] DRUG SCREEN Rapid urine drug screen performed, pt + for BUP & BENZOTGrodi [employer] SUBOXONE Pt here today fo r Suboxone film refill. PT HAS NORMA ON 16MG SINCE 2016. Pt wants to go over her testing results she recently got done. 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 Pt states she is not scheduled for surgery yet because she wants to talk to Dr. Niño about it because she has heard it is a very painful surgery and I am at a crossroad on what to do . Pt is attending counseling at [facility] in [place]. Pt has an apt on 07/25. Told patient she has to keep this apt or she will have to go down to 2 week apts. PT states she has both Zanaflex & Flexeril. Pt admits she has been taking both cause she had the flu and her back was so bad. Pt states she takes the Flexeril regularly but states the Zanaflex works better for her. PT has a bottle with her today with both tablets mixed together in the bottle. PT NEEDS REFILLS ON LASIX, CYMBALTA, OMEPRAZOLE, GABAPENTIN. OARRS completed, last filled Ambien 07/11, Valium 06/21, Suboxone 06/21TGrodi LPNWe discussed Pt having her back surgery before she get the carpal tunnel, we also discussed not taking both medication cyclobenzaprine and zanaflex. Pt is still working on getting surgery DRUG SCREEN Rapid urine drug screen performed, pt + for BUP & BENZOTGrodi [employer] SUBOXONE PT here today fo r Suboxone film refill. PT HAS BEE ON 16MG SINCE 06/14/2017Pt is attending counseling at [facility] in [place]. PT was last there on 05/02, missed apt on 05/29 & 06/19.Pt has film wrapper with her today.PT was recently in the hospital due to her back pain and it radiating down her L arm also having numbness in that arm. Pt was giving morphine in the ER. Have reports stating this as well. Pt states she had a PM consult yesterday and they wanted to change her medications. They wanted to put her on Cymbalta & Lyrica and take the Gabapentin away. Pt states she did not want to go against her PCP and left the hospital AMA. PT NEEDS REFILLS ON FLEXERIL, VALIUM, MIRALAX, & ZOFRAN. OARRS completed, last filled Ambien 06/11, Gabapentin 05/30. Suboxone 05/27 & Valium 05/15TGrodi LPNwe discussed PT MRi and that it shows bone edema constant with all the pain she is having. Pt is still very nervous and emotional about all this, we discussed it in more detail, and,above was reviewed and agreed with DRUG SCREEN Rapid urine drug screen performed, pt + for BUP, BENZO & MORLast UDS, pt was NEG Ambien & Naloxone. Creatinine was also at 7. Performed oral swab on patient today. TGrodi [employer] SUBOXONE Pt here today fo r Suboxone film refill. Pt is attending counseling at [facility] in [place]. Pt states she has been to counseling once this month and had to cancel once because of her tooth pain. Pt is rescheduled on 04/28 for an apt. PT states her MRI's were approved, pt states she is going to call today to make an apt. Pt has an apt with [facility] on 06/12Pt states she is sore today, she had 2 abscessed teeth that were pulled yesterday. Pt has film wrappers with her today. PTS GABAPENTIN PRESCRIPTION NEEDS PRINTED TO FAX TO [facility]. Pt is wanting a 7 day supply of Gabapentin till she gets her mail order prescription. PT needs refills on AMBIEN, FLEXERIL, LISINOPRIL/HCTZ, MIRALAX, PROZAC & ZOFRAN. OARRS completed, last filled Valium & Ambien 05/15, Suboxone 04/26 & Gabapentin 04/22TGrodi [employer] DRUG SCREEN Rapid urine drug screen performed, pt + for BUP & BENZOTGrodi [employer] back pain The problem is s table. It occurs persistently. Location of pain is middle back and lower back. Symptoms are aggravated by coughing and daily activities. SUBOXONE Pt here today fo r Suboxone film refill. PT is attending counseling at [facility] in [place]. Pt was there on March 28 and is rescheduled on May 01. PT recently broke a tooth. Pt brought the tooth in here today. I asked if she seen a dentist. Pt states that her dental coverage does not kick in till May 06. PT states that she had to take the whole bottle of Lactulose to have a bowel movement. Pt states she finally had one but they are hard and not staying in the rectal area like they should. Pt's last complaint is her Raynaud's has came back. Pt states she knows there is nothing they can do about it but states it is painful. PT NEEDS REFILLS ON LASIX, OMEPRAZOLE & ZOFRAN. OARRS completed, last filled Gabapentin 04/22, Ambien 04/16, Valium 04/12, & Suboxone 03/29TGrodi LPNPt sates that she is still having lots of problems and needs something for her anxiety, we discussed she can not do the zanaflex and valium. Pt states she would like to switch the zanaflex to something else. DRUG SCREEN Rapid urine drug screen performed, pt + for BUP & BENZOTGrodi GUITAR MAKER HAND SUBOXONE PT here today fo r Suboxone film refill. PT is attending counseling at [facility] in [place]. PT has a note today from an apt she attended on 03/28 and has another note stating she has 2 more apts on Apr 20 & Apr 30. Pt has her neurology apt on April [address] Summers in [place]. Pt states that within the last 7 days, her tongue has really gotten numb. Pt states it is constant and does not have any changes in medications or did anything to it. Pt states she is still having headaches from her fall. Pt has film wrappers with her today. PT NEEDS REFILLS ON AMBIEN, ZOFRAN, ZANAFLEX, & VALIUM. OARRS completed, last filled Gabapentin 03/24, Ambien 03/19, Valium & Suboxone 03/15TGrodi LPNPt also states the tip of her tongue is numb it started a few days go and is continuing to stay that way and she does not know why and she did fall that day DRUG SCREEN Rapid urine drug screen performed, pt + for BUP & BENZOTGrodi GUITAR MAKER HAND DRUG SCREEN Rapid urine drug screen performed.Patient positive for BUP & BZO.Fentanyl negativeJanusz Lee SUBOXONE Patient presents for Suboxone refill. Patient is very upset and worried, states her threw out some of her Suboxone films.States she has not been to counseling yet. States she no showed at [facility] and now owes a lot of money. States she cannot go back there until she pays her bill. States she wants to go to [facility]osp[facility] care and needs grief counseling. States she has been in contact with Hospice. States she has an appointment with neuro surgeon 04/04/19 for her back pain. OARRS complete. Last filled Suboxone 02/15/19. Last filled Diazepam 02/15/19. Last filled Zolpidem 02/19/19. No other concerns at this time.--Janusz LeePt called hospice because she feels that she needs to start with grief counseling before she can more on so she call them. SUBOXONE Pt here today fo r Suboxone. Pt attended an assessment at [facility] on February 05. Pt has a note that she went on 02/12 for an apt. Pt states she fell on Tuesday and injured her face. She said she went to [place] [facility]. She said she has a headache. PT states they said she just had a severe contusion. PT is still having issues with having bowel movements. She said every times she wipes she has stool on the TP. She said she did have an apt for her back that she had to reschedule due to babysitting. PT NEEDS REFILL ON GABAPENTIN, TIZANIDINE & ZOFRAN. OARRS completed, last filled Valium & Suboxone 02/01, Ambien 01/17TGrodi LPNPt states she is not doing well, question if getting her breast reduced would help, we discussed that with her symptoms she needs back surgery first, a reduction may help in the buttermaker continuous churn but the back is the major problem DRUG SCREEN Rapid urine drug screen performed, pt + for BUP & BENZOFentanyl NEGTGrodi GUITAR MAKER HAND SUBOXONE Pt here today fo r Suboxone film refill. Pt states she is sick today and has bronchitis. PT states she is coughing, runny nose, green color mucus watery eyes. Pt states her grandson has it as well. PT states she has an apt with counseling on February 16. She did not go to the last 2 apts. Pt has films with her today. PT states she is having bowel movements in her pants. She said this has happened before with her. She said, her butthole is not that tight either . PT NEEDS REFILLS ON PROAIR, TIZANIDINE, FUROSEMIDE & PROZAC, PLEASE PRINT PROAIR & ZANAFLEXOARRS completed, last filled Ambien 01/17, Valium & Suboxone 5/2TGrodi GUITAR MAKER HAND DRUG SCREEN Rapid urine drug screen performed, pt + for BUP, BENZO, Fentanyl POSTGrodi GUITAR MAKER HAND Suboxone Pt here today fo r Suboxone film refill. PT states she is going to counseling at [facility] in [place]. She said she has an apt tomorrow morning. PT states she is attending her neurosurgery apt on Tuesday. PHQ indicates moderate severe depression. Pt was on Prozac and took herself off of it, would like to get back on it. PT NEEDS REFILLS ON VENTOLIN, TIZANIDINE & OMEPRAZOLE. Pt states she is having a hard time start urinating. Pt is all over the place today with talking, she keeps interrupting me and changing the subject. OARRS completed, last filled Ambien 12/20, Valium & Suboxone /TGrodi GUITAR MAKER HAND ,above was reviewed and agreed with Drug Screen Rapid urine drug screen performed, Pt + for BUP & BenzoFentanyl negTGrodi GUITAR MAKER HAND Suboxone Patient here for Suboxone films. Patient forgot her films today. Also patient is not seeing a counselor at this time but attending meetings in [place].OARRS completed. Last fills- Zlppidem 12.5mg 11/21/18, Diazepam 5mg 11/07/18 and Suboxone 11/07/18. Allen Xavier.Pt is still having a lot of lower back pain and does have larger breast. Drug Screen Urine rapid scre en. Positive for BZO and BUPFentanyl-neg. Allen Xavier. Drug Screen Rapid urine drug screen performed, pt + for Benzo & BuprenorphineFentanyl -TGrodi GUITAR MAKER HAND Suboxone Pt here for Subo xone film refill. Pt states she is not attending counseling but NA/AA meetings. I informed her that there is a new law that they have to attend counseling or they will be tapered off. She said she is going to set up counseling. Pt has films with her today. OARRS completed, last filled Ambien 10/24, Valium & Suboxone / TGrodi GUITAR MAKER HAND Pt states doing well not having any new problems ,above was reviewed and agreed with Suboxone Pt here today fo r Suboxone refill. Pt states that she attended 1 AA meeting for counseling. Pt has films with her today. When asking patient how she was today she stated not good. She said her cousin lost her baby a week and a half ago and has been experiencing some depression and thinks she needs to be put on something. Pt also wants to talk about increasing Gabapentin dose. She states she has some back and neck pain. She said she called her neurosurgeon and the one and the other retired. PHQ indicates severe depression. OARRS completed, last filled Suboxone diazepam 09/12, ambien 09/26.Natalie STEPHENSONN Drug Screen Rapid urine drug screen performed, pt for Benzo & Buprenorphine. Natalie STEPHENSONN Suboxone Drug Screen check up Pt here today fo r a check up and a refill on medications. Pt wants her Ambien ER, Flexeril, Lasix,Pt states she has swelling in her both legs. She will get blisters with these. Pt states it does not happen all the time. Pt states she never took the Doxycycline cause she started to feel better. OARRS completed. Natalie LPNPt states the swelling of her legs sometimes get painful and she did have some labs for this but it has been a while. pt states she has a strong family history of heart disease. drug screen Drug screen pos for Buprenorphine and BZO. CONENR Wright Suboxone Patient here for Suboxone. She brought in with her today wrappers with several different lot numbers. OARRS complete. She is attending NA meetings but is thinking about calling her previous grief counselor, Meghan at Hospice, to continue counseling. She is having a hard week since yesterday was her grandmother's birthday and tomorrow is her mother's anniversary. CONNER Wright sick Patient is also complaining of bark-like cough X 3days. Sore throat, hoarseness, snuffy nose. When she lays down her breathing is very restricted. Pulse ox 89%. Patient is also concerned that urine is very dark despite her staying hydrated. Patient would also been seen for PCP and needs refills on all meds today. CONNER WrightPt is also concern that her urine is so dark Functional Status Date Functional Assessmen t No Information Instructions Date Instruction Additional Infor mation Giving encouragement to exercise Related to Body mass index [BMI] 39.0-39.9, adult Dietary management e ducation, guidance, and counseling Related to Body mass index [BMI] 39.0-39.9, adult Giving encouragement to exercise Related to Body mass index [BMI] 40.0-44.9, adult Dietary management e ducation, guidance, and counseling Related to Body mass index [BMI] 40.0-44.9, adult Giving encouragement to exercise Related to Body mass index [BMI] 40.0-44.9, adult Dietary management e ducation, guidance, and counseling Related to Body mass index [BMI] 40.0-44.9, adult Giving encouragement to exercise Related to Body mass index [BMI]40.0-44.9, adult Dietary management e ducation, guidance, and counseling Related to Body mass index [BMI]40.0-44.9, adult Giving encouragement to exercise Related to Body mass index [BMI]40.0-44.9, adult Dietary management e ducation, guidance, and counseling Related to Body mass index [BMI]40.0-44.9, adult Dietary management e ducation, guidance, and counseling Related to Body mass index [BMI]40.0-44.9, adult Giving encouragement to exercise Related to Body mass index [BMI]40.0-44.9, adult Giving encouragement to exercise Related to Body mass index [BMI] 39.0-39.9, adult Dietary management e ducation, guidance, and counseling Related to Body mass index [BMI] 39.0-39.9, adult Giving encouragement to exercise Related to Body mass index [BMI] 39.0-39.9, adult Dietary management e ducation, guidance, and counseling Related to Body mass index [BMI] 39.0-39.9, adult Dietary management e ducation, guidance, and counseling Related to Body mass index [BMI]40.0-44.9, adult Giving encouragement to exercise Related to Body mass index [BMI]40.0-44.9, adult Dietary management e ducation, guidance, and counseling Related to Body mass index [BMI]40.0-44.9, adult Giving encouragement to exercise Related to Body mass index [BMI]40.0-44.9, adult Giving encouragement to exercise Related to Body mass index [BMI]40.0-44.9, adult Dietary management e ducation, guidance, and counseling Related to Body mass index [BMI]40.0-44.9, adult Giving encouragement to exercise Related to Body mass index [BMI]40.0-44.9, adult Dietary management e ducation, guidance, and counseling Related to Body mass index [BMI]40.0-44.9, adult Giving encouragement to exercise Related to Body mass index [BMI]40.0-44.9, adult Dietary management e ducation, guidance, and counseling Related to Body mass index [BMI]40.0-44.9, adult Giving encouragement to exercise Related to Body mass index [BMI]40.0-44.9, adult Dietary management e ducation, guidance, and counseling Related to Body mass index [BMI]40.0-44.9, adult Giving encouragement to exercise Related to Body mass index (BMI) 40.0-44.9, adult Dietary management e ducation, guidance, and counseling Related to Body mass index (BMI) 40.0-44.9, adult Giving encouragement to exercise Related to Body mass index (BMI) 40.0-44.9, adult Dietary management e ducation, guidance, and counseling Related to Body mass index (BMI) 40.0-44.9, adult Dietary management e ducation, guidance, and counseling Related to Body mass index (BMI) 40.0-44.9, adult Giving encouragement to exercise Related to Body mass index (BMI) 40.0-44.9, adult Giving encouragement to exercise Related to Body mass index (BMI) 40.0-44.9, adult Dietary management e ducation, guidance, and counseling Related to Body mass index (BMI) 40.0-44.9, adult Giving encouragement to exercise Related to Body mass index (BMI) 40.0-44.9, adult Dietary management e ducation, guidance, and counseling Related to Body mass index (BMI) 40.0-44.9, adult Giving encouragement to exercise Related to Body mass index (BMI) 40.0-44.9, adult Dietary management e ducation, guidance, and counseling Related to Body mass index (BMI) 40.0-44.9, adult Giving encouragement to exercise Related to Body mass index (BMI) 40.0-44.9, adult Dietary management e ducation, guidance, and counseling Related to Body mass index (BMI) 40.0-44.9, adult Giving encouragement to exercise Related to Body mass index (BMI) 40.0-44.9, adult Dietary management e ducation, guidance, and counseling Related to Body mass index (BMI) 40.0-44.9, adult Giving encouragement to exercise Related to Body mass index (BMI) 40.0-44.9, adult Dietary management e ducation, guidance, and counseling Related to Body mass index (BMI) 40.0-44.9, adult Giving encouragement to exercise Related to Body mass index (BMI) 38.0-38.9, adult Dietary management e ducation, guidance, and counseling Related to Body mass index (BMI) 38.0-38.9, adult Dietary management e ducation, guidance, and counseling Related to Body mass index (BMI) 38.0-38.9, adult Giving encouragement to exercise Related to Body mass index (BMI) 38.0-38.9, adult Dietary management e ducation, guidance, and counseling Related to Body mass index (BMI) 38.0-38.9, adult Giving encouragement to exercise Related to Body mass index (BMI) 38.0-38.9, adult Giving encouragement to exercise Related to Body mass index (BMI) 39.0-39.9, adult Dietary management e ducation, guidance, and counseling Related to Body mass index (BMI) 39.0-39.9, adult Giving encouragement to exercise Related to Body mass index (BMI) 39.0-39.9, adult Dietary management e ducation, guidance, and counseling Related to Body mass index (BMI) 39.0-39.9, adult Giving encouragement to exercise Related to Body mass index (BMI) 39.0-39.9, adult Dietary management e ducation, guidance, and counseling Related to Body mass index (BMI) 39.0-39.9, adult Giving encouragement to exercise Related to Body mass index (BMI) 38.0-38.9, adult Dietary management e ducation, guidance, and counseling Related to Body mass index (BMI) 38.0-38.9, adult Giving encouragement to exercise Related to Body mass index (BMI) 39.0-39.9, adult Dietary management e ducation, guidance, and counseling Related to Body mass index (BMI) 39.0-39.9, adult Giving encouragement to exercise Related to Body mass index (BMI) 40.0-44.9, adult Dietary management e ducation, guidance, and counseling Related to Body mass index (BMI) 40.0-44.9, adult Giving encouragement to exercise Related to Body mass index (BMI) 40.0-44.9, adult Dietary management e ducation, guidance, and counseling Related to Body mass index (BMI) 40.0-44.9, adult Giving encouragement to exercise Related to Body mass index (BMI) 40.0-44.9, adult Dietary management e ducation, guidance, and counseling Related to Body mass index (BMI) 40.0-44.9, adult Giving encouragement to exercise Related to Body mass index (BMI) 39.0-39.9, adult Dietary management e ducation, guidance, and counseling Related to Body mass index (BMI) 39.0-39.9, adult Giving encouragement to exercise Related to Body mass index (BMI) 40.0-44.9, adult Dietary management e ducation, guidance, and counseling Related to Body mass index (BMI) 40.0-44.9, adult Giving encouragement to exercise Related to Body mass index (BMI) 40.0-44.9, adult Dietary management e ducation, guidance, and counseling Related to Body mass index (BMI) 40.0-44.9, adult Giving encouragement to exercise Related to Body mass index (BMI) 40.0-44.9, adult Dietary management e ducation, guidance, and counseling Related to Body mass index (BMI) 40.0-44.9, adult Dietary management e ducation, guidance, and counseling Related to Body mass index (BMI) 39.0-39.9, adult Giving encouragement to exercise Related to Body mass index (BMI) 39.0-39.9, adult Assessments Type Assessment Date No Information Goals Health Concern Goal Type Priority Status Date Patient needs education to manage opioid dependence. Patient has been on 16mg since 2017.Pt has also been on Valium, & Ambien. PT also needs back surgery Continue to decrease patients Valium dose. Get patient her back surgery Patient Goal New Patient Care Teams Name Effective Dates (start - stop) Status Members No Information
--- OUTSIDE RECORDS SUMMARY | 2024-10-25 06:30 | XMS_ITS ---
Author Organization [facility] Address [address] [place] [address] Care Team Providers Care Investment Sales Assistant Name Role Phone Le Davis Primary Care Provider REASON FOR VISIT est care/ prior PCP left the area Encounters Encounter Location Date Provider Diagnosis [address] [place] [address] [place] [address] 10/25/2024 Le Davis Plan Of Treatment No Information Progress Notes * MARIA TERESA LEEOB:1975 ([age] yo F)Acc No.[id number]:10/25/2024 Progress Notes Patient: MORALES LYNCH Provider: Cirilo Palacios CNP :1975 A ge:49 Y S ex:Female Date:10/25/2024 Address:[address], [facility] Subjective: * Chief Complaints: * 1 . est care/ prior PCP left the area. * Medical History: Objective: * Vitals: Assessment: Plan: * Treatment: Care Plan: * Problems: * Images: * Electronic signature of MAINE Nazario on 05/05/2025 at 12:48 AM EDT Sign off status: Pending * Provider: Cirilo Palacios CNP Date: 10/25/2024 Generated for Brigida ng/Fajama/eTransmitting on: 0 05/05/2025 12:48 AM EDT
--- OUTSIDE RECORDS SUMMARY | 2025-05-05 00:47 | XMS_ITS | Encounter Summary ---
Author Organization [facility] Address [address] [place] [address] Care Team Providers Care Skimmer Scoop Operator Name Role Phone Shaikh SHAHANA Obrien Primary Care Provider [phone] Kostas Ching MD Primary Care Provider [phone] Gianna Orosco NP Unavailable [phone] Unallocated, Noms Provider Primary Care Provi marilu Shaikh SHAHANA Obrien Unavailable [phone] Encounter Details Date Type Department Care Team (Late st Contact Info) Description 02/06/2024 Orders Only [facility] [address] [place] [phone] Shaikh Obrien MD [address] [place] [id number] Social History Tobacco Use Types Packs/Day Years [...] on filedocumented in this encounter Care Teams Skimmer Scoop Operator Relationship Specialty Start Date End Date Shaikh Obrien MD [address] [place] [phone] PCP - General Internal Medicine 11/01/23 04/11/24 Kostas Ching MD [address] [place] [address] PCP - General Family Medicine 04/12/24 06/03/24 Unallocated, Noms MD Larry [address] [facility] [place] [address] PCP - General Family Medicine 06/04/24 Shaikh Obrien MD [address] [place] [address] PCP - [facility] 11/03/24 Gianna Orosco NP [address] [place] [address] Nurse Practitioner Family Medicine 04/12/24 documented as of this encounter
--- OUTSIDE RECORDS SUMMARY | 2025-05-05 00:47 | XMS_ITS | Patient Health Record ---
Author Organization [facility] es Address [address] [place] [address] Care Team Providers Care Franchise Consultant Name Role Phone Le Davis Primary Care Provider Allergies Allergen (clinical drug ingredient) Drug/Non Drug Allergy documented on EMR Reaction Allergy Type Onset Date Status Information temporarily unavailable CODEINE (uncoded) Unknown Allergy Active Information temporarily unavailable NEURONTIN (uncoded) Unknown Allergy Active Information temporarily unavailable PCN (uncoded) Unknown Allergy Active Information temporarily unavailable PHENERGAN (uncoded) Unknown Allergy Active Reason For Referral No Information Medications Medication SIG (Take, Route, Frequency, Duration) Notes Start Date End Date Status Zofran 8 MG 1 TABLET Q8H PRN FOR NAUSEA AND VOMITING Active Zonisamide 100 MG 2 CAPSULES AT HS Active Reglan 10 MG 1 TABLET Q8H PRN FOR NAUSEA Active Venlafaxine HCl 75 MG 1 CAPSULE ONCE AT HS Active oxyCODONE-Acetaminophen 5-325 MG 1-2 TABLETS Q4-6H PRN FOR PAIN Active Prevacid 30 MG 1 CAPSULE BID A ctive Flexeril 10 mg 30 10 MG 1 TABLET TID PRN FOR MUSCLE SPASMS Active Bentyl 10 MG 1 CAPSULE Q6H PRN FO R CRAMPING Active Ergocalciferol 19115 U Active Plan Of Treatment No Information Medical (General) History Medical History History ICD Code SEIZURES MAJOR DEPRESSION Surgical History Surgery Date(Month/Year) CHOLECYSTECTOMY HERNIA REPAIR APPENDECTOMY HYSTERECTOMY Hospitalization History Reason Date(Month/Year) SEIZURE, STOMACH PAINS 2010
--- OUTSIDE RECORDS SUMMARY | 2025-05-05 00:48 | XMS_ITS | Encounter Summary ---
Author Organization [facility] Address [address] [place] [address] Care Team Providers Care Surface Grinder Tender Name Role Phone Kostas Ching MD Primary Care Provider Gianna Orosco ADVERTISING DISPLAY ROTATOR Unavailable [phone] Unallocated, Noms Provider Primary Care Provi marilu Shaikh SHAHANA Obrien Unavailable [phone] Encounter Details Date Type Department Care Team (Late st Contact Info) Description 05/10/2024 Orders Only [facility] [address] [place] [address] Shaikh Obrien MD [address] [place] [phone] Social History Tobacco Use Types Packs/Day Years [...] on filedocumented in this encounter Care Teams Surface Grinder Tender Relationship Specialty Start Date End Date Kostas Ching MD [address] [place] [address] PCP - General Family Medicine 04/12/24 06/03/24 Unallocated, Noms MD Larry [facility] [place] [address] PCP - General Family Medicine 06/04/24 Shaikh Obrien MD [address] [place] [address] PCP - [facility] 11/03/24 Gianna Orosco NP [address] [place] [address] Nurse Practitioner Family Medicine 04/12/24 documented as of this encounter
--- OUTSIDE RECORDS SUMMARY | 2025-05-05 00:48 | XMS_ITS | Encounter Summary ---
Author Organization [facility] Address [address], [address] [place] [address] Care Team Providers Care Car Conditioner Name Role Phone Shaikh SHAHANA Obrien Primary Care Provider [phone] Encounter Details Date Type Department Care Team (Late st Contact Info) Description 06/10/2023 Orders Only [facility] [address] [place] [phone] Provider, MD Haydee Social History Tobacco Use Types Packs/Day Years Used Date Smoking Tobacco: Every Day Cigarettes 2 25.7 Started: 09/05/1999 Smokeless Tobacco: Never Comments Unknown Sex and Gender Information Value Date Recorded Sex Assigned at Not on file Legal Sex Female 9:09 PM EST Gender Identity Not on file Sexual Orientation Not on file documented as of this encounter Plan of Treatment Upcoming Encounters Date Type Department Care Team (Late st Contact Info) Description 05/29/2025 11:30 AM EDT Office Visit [facility] [place] [address] Fred Maruice MD [address] [place] [address], [address] [place] [address] 1m catheter change/provider visit/ dr [...] on filedocumented in this encounter Care Teams Car Conditioner Relationship Specialty Start Date End Date Shaikh Obrien MD PCP - General 09/07/23 documented as of this encounter
--- OUTSIDE RECORDS SUMMARY | 2025-05-05 00:48 | XMS_ITS | Encounter Summary ---
Author Organization [facility] Address [address], [address] [place] [address] Care Team Providers Care Solar Project Engineer Name Role Phone Shaikh SHAHANA Obrien Primary Care Provider [phone] Reason for Visit * Reason Onset Date Comments OTHER 04/26/2025 Encounter Details Date Type Department Care Team (Late Contact Info) Description 04/26/[address] [place] [address] Celeste Gardiner, SENIOR CENTER MANAGER - FAMILY LAW LEGAL ASSISTANT [address] [place] [address] [address] [place] [address] OTHER Social History Tobacco Use Types Packs/Day Years Used Date Smoking Tobacco: Every Day Cigarettes 2 25.7 Started: 09/05/1999 Smokeless Tobacco: Never Comments No Sex and Gender Information Value Date Recorded Sex Assigned at Not on file Legal Sex Female 9:09 PM EST Gender Identity Not on file Sexual Orientation Not on file documented as of this encounter Plan of Treatment Upcoming Encounters Date Type Department Care Team (Late st Contact Info) Description 05/29/2025 11:30 AM EDT Office Visit [address] [place] [address] Fred Maurice MD [address] [place] [address], [address] [place] [address] 1m catheter change/provider visit/ dr only documented as of this encounter Visit Diagnoses Not on filedocumented in this encounter Care Teams Solar Project Engineer Relationship Specialty Start Date End Date Shaikh Obrien MD PCP - General 09/07/23 documented as of this encounter
--- OUTSIDE RECORDS SUMMARY | 2025-05-05 00:48 | XMS_ITS | Clinical Summary ---
Author Organization [facility] Address [address] [place], [place] [address] Care Team Providers Care Lithographic Platemaker Name Role Phone Unavailable Primary Care Provider [...] N ot on file 08/12/2020 Data from: [email or web address].[email or web address]/. Last address used for calculation Not on [...] - 99 mg/dL 06/19/2019 9:17 PM EDT [facility] Comment: The [place] Diabetes Association (ADA) provides guidance for cutoff [...] Standards of Medical Care in Diabetes 2016, [place] [employer] Association. Diabetes Care. 2016.39(Suppl 1). BUN 7 7 - 21 mg/dL 06/19/2019 9:17 PM [facility] Creatinine 0.59 0.58 - 0.96 mg/dL 06/19/2019 9:17 PM [facility] Sodium 139 136 - 144 mmol/L 06/19/2019 9:17 PM [facility] Potassium 3.7 3.7 - 5.1 mmol/L 06/19/2019 9:17 PM [facility] Chloride 96(L) 97 - 105 mmol/L 06/19/2019 9:17 PM [facility] CO2 29 22 - 30 mmol/L 06/19/2019 9:17 PM [facility] Anion Gap 14 9 - 18 mmol/L 06/19/2019 9:17 PM [facility] Calcium 10.3(H) 8.5 - 10.2 mg/dL 06/19/2019 9:17 PM [facility] eGFR- >60 06/19/2019 9:17 PM [facility] eGFR-All Other Races >60 . 06/19/2019 9:17 PM [facility] Comment: eGFR (Estimated GFR) [...] Domínguez PA-C [facility] Final Resul t [facility] [id number] [address] [place] [place] [address], [facility] Laboratory from Last 3 Months or Most Recently Relevant to Health Maintenance Insurance BLUE CARD PPO OOS
--- OUTSIDE RECORDS SUMMARY | 2025-05-05 00:48 | XMS_ITS | Encounter Summary ---
Author Organization [facility] Address [address], [address] [place] [address] Care Team Providers Care Vocational Services Specialist Name Role Phone Shaikh SHAHANA Obrien Primary Care Provider [phone] Encounter Details Date Type Department Care Team (Late st Contact Info) Description 12/27/2023 Orders Only [facility] [address] [place] [phone] Provider, MD Haydee Social History Tobacco Use [...] Description 05/29/2025 11:30 AM EDT Office Visit [facility] [address] [place] [address] Fred Maurice MD [address] [place] [address], [address] [place] [address] 1m catheter change/provider visit/ dr [...] on filedocumented in this encounter Care Teams Vocational Services Specialist Relationship Specialty Start Date End Date Shaikh Obrien MD PCP - General 09/07/23 documented as of this encounter
--- OUTSIDE RECORDS SUMMARY | 2025-05-05 00:48 | XMS_ITS | Patient Health Record ---
Author Organization [facility] in [place] Address [address] [place] [address] Care Team Providers Care Rn Licensed Practical Name Role Phone Pako Johnson Do Primary Care Provider Unavaila ble Allergies Allergen (clinical drug ingredient) Drug/Non Drug Allergy documented on EMR Reaction Allergy Type Onset Date Status Information temporarily unavailable Codeine Sulfate Unknown Drug Allergy Active Information temporarily unavailable Phenergan Unknown Drug Allergy Active Information temporarily unavailable Penicillin Unknown Drug Allergy Active Results Component Value Reference Range Notes CBC AUTO DIFF Reviewed date:09/02/2024 03:04:39 PM Interpretation: Performing Lab: Notes/Report: [facility] , White Blood Count 7.8 4.0-11.0 10 3/uL Red Blood Count 3.96 4.20-5.40 10 6/uL Hemoglobin 10.7 12.0-16.0 g/dL Hematocrit 34.1 36.0-48.0 % Mean Corpuscular Volume 86.1 81.0-99.0 fL Mean Corpuscular Hemoglobin 27.0 26.7-34.0 pg Mean Corpuscular HGB Conc 31.4 29.9-35.2 g/dL Red Cell Distribution Width 16.2 11.0-15.0 % Platelet Count 275 150-450 10 3/uL Mean Platelet Volume 9.5 9.5-13.5 fL Neutrophils Percent Auto 54.8 43.0-75.0 % Lymphocytes Percent Auto 36.5 20.5-60.0 % Monocytes Percent Auto 5.0 1.7-12.0 % Eosinophils Percent Auto 2.2 0.9-7.0 % Basophils Percent Auto 0.5 0.2-2.0 % Immature Granulocytes Pct Auto 1.0 0.0-0.5 % Neutrophils Absolute Auto 4.3 1.4-6.5 10 3/uL Lymphocytes Absolute Auto 2.9 1.2-3.8 10 3/uL Monocytes Absolute Auto 0.4 0.3-0.8 10 3/uL Eosinophils Absolute Auto 0.2 0.0-0.7 10 3/uL Basophils Absolute Auto 0.0 0.0-0.1 10 3/uL Immature Granulocytes Abs Auto 0.08 0.00-0.03 10 3/uL Performing Lab: see note ML - [facility] LB CRP Reviewed date:09/02/2024 03:04:39 PM Interpretation: Performing Lab: Notes/Report: [facility] , C Reactive Protein 4.74 <=0.50 mg/dL Performing Lab: see note - [facility] PROF 14(COMP METB) Reviewed date:09/02/2024 03:04:39 PM Interpretation: Performing Lab: Notes/Report: [facility] , Sodium 139 136-145 mmol/L Potassium 3.8 3.5-5.1 mmol/L Chloride 107 98-107 mmol/L Carbon Dioxide 32.1 21.0-32.0 mmol/L Anion Gap 3.7 Glucose 125 74-106 mg/dL Blood Urea Nitrogen 17.0 7.0-18.0 mg/dL Creatinine 0.84 0.55-1.02 mg/dL Estimated GFR ( July >60 >=60 mL/min/1.73m 2 Estimated GFR (Non- Batool >60 >=60 mL/min/1.73m 2 BUN Creatinine Ratio 20.2 Calcium 8.0 8.5-10.1 mg/dL Bilirubin Total 0.2 0.2-1.0 mg/dL Aspartate Amino Transferase 31 15-37 U/L Alanine Aminotransferase 27 14-59 U/L Alkaline Phosphatase 138 46-116 U/L Total Protein 5.8 6.4-8.2 g/dL Albumin Level 1.7 3.4-5.0 g/dL Globulin 4.1 Albumin Globulin Ratio 0.4 Performing Lab: see note ML - [facility] LB Gentamicin Random Reviewed date:09/02/2024 03:04:39 PM Interpretation: Performing Lab: Notes/Report: [facility] , Gentamicin Random 2.1 Performing Lab: see note - [facility] LB CBC AUTO DIFF Reviewed date:09/02/2024 03:04:39 PM Interpretation: Performing Lab: Notes/Report: [facility] , White Blood Count 7.9 4.0-11.0 10 3/uL Red Blood Count 3.96 4.20-5.40 10 6/uL Hemoglobin 10.7 12.0-16.0 g/dL Hematocrit 34.1 36.0-48.0 % Mean Corpuscular Volume 86.1 81.0-99.0 fL Mean Corpuscular Hemoglobin 27.0 26.7-34.0 pg Mean Corpuscular HGB Conc 31.4 29.9-35.2 g/dL Red Cell Distribution Width 16.2 11.0-15.0 % Platelet Count 265 150-450 10 3/uL Mean Platelet Volume 9.3 9.5-13.5 fL Neutrophils Percent Auto 54.2 43.0-75.0 % Lymphocytes Percent Auto 35.8 20.5-60.0 % Monocytes Percent Auto 5.7 1.7-12.0 % Eosinophils Percent Auto 2.7 0.9-7.0 % Basophils Percent Auto 0.6 0.2-2.0 % Immature Granulocytes Pct Auto 1.0 0.0-0.5 % Neutrophils Absolute Auto 4.3 1.4-6.5 10 3/uL Lymphocytes Absolute Auto 2.8 1.2-3.8 10 3/uL Monocytes Absolute Auto 0.5 0.3-0.8 10 3/uL Eosinophils Absolute Auto 0.2 0.0-0.7 10 3/uL Basophils Absolute Auto 0.1 0.0-0.1 10 3/uL Immature Granulocytes Abs Auto 0.08 0.00-0.03 10 3/uL Performing Lab: see note ML - [facility] LB PROF 14(COMP METB) Reviewed date:09/02/2024 03:04:39 PM Interpretation: Performing Lab: Notes/Report: [facility] , Sodium 143 136-145 mmol/L Potassium 4.0 3.5-5.1 mmol/L Chloride 108 98-107 mmol/L Carbon Dioxide 32.1 21.0-32.0 mmol/L Anion Gap 6.9 Glucose 106 74-106 mg/dL Blood Urea Nitrogen 16.0 7.0-18.0 mg/dL Creatinine 0.84 0.55-1.02 mg/dL Estimated GFR ( July >60 >=60 mL/min/1.73m 2 Estimated GFR (Non- Batool >60 >=60 mL/min/1.73m 2 BUN Creatinine Ratio 19.0 Calcium 8.1 8.5-10.1 mg/dL Bilirubin Total 0.2 0.2-1.0 mg/dL Aspartate Amino Transferase 32 15-37 U/L Alanine Aminotransferase 26 14-59 U/L Alkaline Phosphatase 135 46-116 U/L Total Protein 5.9 6.4-8.2 g/dL Albumin Level 1.7 3.4-5.0 g/dL Globulin 4.2 Albumin Globulin Ratio 0.4 Performing Lab: see note ML - [facility] LB CRP Reviewed date:09/02/2024 03:04:39 PM Interpretation: Performing Lab: Notes/Report: [facility] , C Reactive Protein 4.49 <=0.50 mg/dL Performing Lab: see note ML - [facility] CBC AUTO DIFF Reviewed date:09/03/2024 08:20:29 PM Interpretation: Performing Lab: Notes/Report: [facility] , White Blood Count 11.6 4.0-11.0 10 3/uL Red Blood Count 4.37 4.20-5.40 10 6/uL Hemoglobin 11.7 12.0-16.0 g/dL Hematocrit 36.8 36.0-48.0 % Mean Corpuscular Volume 84.2 81.0-99.0 fL Mean Corpuscular Hemoglobin 26.8 26.7-34.0 pg Mean Corpuscular HGB Conc 31.8 29.9-35.2 g/dL Red Cell Distribution Width 15.4 11.0-15.0 % Platelet Count 329 150-450 10 3/uL Mean Platelet Volume 9.3 9.5-13.5 fL Performing Lab: see note ML - [facility] LB CRP Reviewed date:09/03/2024 08:20:29 PM Interpretation: Performing Lab: Notes/Report: [facility] , C Reactive Protein 2.26 <=0.50 mg/dL Performing Lab: see note - [facility] LB PROF 14(COMP METB) Reviewed date:09/03/2024 08:20:29 PM Interpretation: Performing Lab: Notes/Report: [facility] , Sodium 142 136-145 mmol/L Potassium 4.5 3.5-5.1 mmol/L Chloride 107 98-107 mmol/L Carbon Dioxide 28.6 21.0-32.0 mmol/L Anion Gap 10.9 Glucose 167 74-106 mg/dL Blood Urea Nitrogen 12.0 7.0-18.0 mg/dL Creatinine 0.73 0.55-1.02 mg/dL Estimated GFR ( July >60 >=60 mL/min/1.73m 2 Estimated GFR (Non- Batool >60 >=60 mL/min/1.73m 2 BUN Creatinine Ratio 16.4 Calcium 8.1 8.5-10.1 mg/dL Bilirubin Total 0.2 0.2-1.0 mg/dL Aspartate Amino Transferase 20 15-37 U/L Alanine Aminotransferase 21 14-59 U/L Alkaline Phosphatase 138 46-116 U/L Total Protein 6.3 6.4-8.2 g/dL Albumin Level 1.9 3.4-5.0 g/dL Globulin 4.4 Albumin Globulin Ratio 0.4 Performing Lab: see note ML - [facility] LB Manual Differential Reviewed date:09/03/2024 08:20:29 PM Interpretation: Performing Lab: Notes/Report: [facility] , Segmented Neutrophils % Manual 88.0 43.0-75.0 Lymphocytes Percent Manual 5.0 20.5-60.0 % Monocytes Percent Manual 1.0 1.7-12.0 % Eosinophils Percent Manual 0.0 0.9-7.0 % Basophils Percent Manual 0.0 0.2-2.0 % Atypical Lymphocytes % Manual 6.0 Segmented Neut Absolute Manual 10.20 1.4-6.5 10 3/uL Lymphocytes Absolute Manual 0.58 1.20-3.80 10 3/uL Monocytes Absolute Manual 0.11 0.30-0.80 10 3/ uL Eosinophils Absolute Manual 0.00 0.00-0.70 10 3/uL Basophils Abs Manual 0.00 0.00-0.10 10 3/uL Atypical Lymphocytes Abs Man 0.69 Performing Lab: see note ML - [facility] LB UA RANDOM W or MICROSCOPIC Reviewed date:09/01/2024 08:32:47 PM Interpretation: Performing Lab: Notes/Report: [facility] , Color Urine LT. YELLOW YELLOW Clarity Urine CLEAR CLEAR Specific [place] Urine 1.020 1.005-1.025 pH Urine 7.0 5.0-9.0 Protein Urine NEGATIVE NEG/TRACE mg/dL Glucose Urine UA NEGATIVE NEGATIVE mg/dL Bilirubin Urine NEGATIVE NEGATIVE [place] Urine NEGATIVE NEGATIVE mg/dL Blood Urine NEGATIVE NEGATIVE Nitrite Urine NEGATIVE NEGATIVE Urobilinogen Urine 1.0 0.2-1.0 EU/dL Leukocyte Esterase Urine TRACE NEGATIVE WBC Urine 2-5 NONE SEEN #/HPF RBC Urine 0-2 0-2 #/HPF Bacteria Urine TRACE NONE SEEN #/HPF Mucus Urine NONE SEEN NONE SEEN Squamous Epithelial Cell Urine RARE NONE/RARE #/LPF Crystals Seen? None Seen None Seen #/HPF Cast Seen? NONE SEEN NONE SEEN #/LPF Yeast Urine SEEN NONE SEEN Urine Culture Indicated YES Performing Lab: see note ML - [facility] LIVER PROFILE Reviewed date:09/01/2024 08:32:46 PM Interpretation: Performing Lab: Notes/Report: [facility] , Bilirubin Total 0.3 0.2-1.0 mg/dL Bilirubin Direct 0.1 0.0-0.2 mg/dL Aspartate Amino Transferase 19 15-37 U/L Alanine Aminotransferase 19 14-59 U/L Alkaline Phosphatase 167 46-116 U/L Total Protein 8.0 6.4-8.2 g/dL Albumin Level 2.5 3.4-5.0 g/dL Globulin 5.5 Albumin Globulin Ratio 0.5 Performing Lab: see note ML - [facility] LB Box Test Reviewed date:09/11/2024 12:35:07 PM Interpretation: Performing Lab: Notes/Report: URINE CULTURE [facility] , BOX Test Sent Out URINE CULTURE BOX Test Reference Lab [facility] BOX Test Date Sent 09/01/24 BOX Test Result SEE SCANNED REPORT Performing Lab: see note ML - [facility] LB Reason For Referral No Information Medications Medication SIG (Take, Route, Frequency, Duration) Notes Start Date End Date Status Gabapentin 300 MG take 1 capsule by [facility] three times a day Oral for 30 Active diazePAM 2 MG (Schedule IV Drug) O ral for 30 Active Cyclobenzaprine HCl 10 MG Oral for 30 Active Zolpidem Tartrate ER 12.5 MG (Schedule I V Drug) Oral for 30 Active Suboxone 8-2 MG (Schedule III Drug) DISSOLVE 2 (TWO) films UNDER THE TONGUE EVERY DAY Sublingual for 28 Active PROzac 40 MG Orally Active Lisinopril-hydroCHLOROthiazi d e 20-25 MG Oral for 30 Active Social History Tobacco Use: Social History Observation Description Date Details (start date - stop date) Current Smoker NA - NA Tobacco Use/Smoking Question Answer Notes Patient is a current every day smoker Additional Findings: Tobacco User Heavy cigarett e smoker (20-39 cigs/day) Tobacco use other than smoking: Question Answer Notes Are you an other tobacco user? 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 confirmed Problem Information temporarily unavailable CRP elevated (R79.82) Active confirmed Problem Information temporarily unavailable Leukocytosis (D72.829) Active confirmed Problem [id number] Kyphoscoliosis (M41.9) Active confirmed Plan Of Treatment No Information Insurance Providers Payer Name Payer Address Payer Phone Subscriber Number Group Number Insured Name Patient Relationship to Insured Coverage Start Date Coverage End Date [employer] PPO PLUS LOCAL PLAN [address] [place] [address] [id number] null, null Spouse - patient is the spouse of the insured 8 MEDICAID [place] [employer] ONLY [address] [place], [place] [id number] Orquidea Avilez Self - patient is the insured Medical (General) History Medical History History ICD Code seizures/epilepsy headache/migraine depression hypertension heartburn/gastritis ulcers vomiting/diarrhea loss of control of bowel/bladder functio n Arthritis drug abuse - opiates suicide attempts visual problems Surgical History Surgery Date(Month/Year) thoracic laminectomy 04/09/[address] Santiago hysterectomy cholecystectomy appendectomy
--- OUTSIDE RECORDS SUMMARY | 2025-05-05 00:48 | XMS_ITS | Clinical Summary ---
Author Organization [facility] Address [address], [address] [place] [address] Care Team Providers Care Fur Mixer Name Role Phone Shaikh SHAHANA Obrien Primary Care Provider [phone] Allergies Active Allergy Reactions Criticality Noted Date [...] the day 1 each 3 Active NYAMYC 260634 UNIT/GM powder apply to affected area three [...] daily Active vitamin D (ERGOCALCIFEROL) 1.25 MG (34707 UT) CAPS capsule Take 1 capsule by [...] Type Department Care Team Description 04/26/2025 Telephone [facility] Part of [address] [place] [address] Celeste Gardiner APRN - PSYCH ARNP OTHER 02/04/2025 10:45 AM EDT Office Visit [facility] Part [address] [place] [address] Fred Maurice MD Bowel and bladder incontinence (Primary Dx); Neurogenic bladder; Constipation, unspecified constipation type; Epigastric pain 02/04/2025 Telephone [facility] Part of [address] [place] [address] Celeste Gardiner APRN - PSYCH ARNP OTHER 02/04/2025 Telephone [facility] Part of [address] [place] [address] Fred Maurice MD request for medication from Last 3 Months Social History Tobacco Use Types Packs/Day Years Used Date Smoking Tobacco: Every Day Cigarettes 2 25.7 Started: 09/05/1999 Smokeless Tobacco: Never Tobacco Cessation:Ready [...] Description 05/29/2025 11:30 AM EDT Office Visit [facility] Part of [address] [address] Fred Maurice MD [address] [place] [address], [address] [address] 1m catheter change/provider visit/ dr [...] 2018 FIT/FOBT: Average risk 2018 Fecal-DNA (Cologuard): [place] ge risk 2018 Sigmoidoscopy/CT colonography 2018 Lung [...] 3 Months Insurance [place] BCBS Care Teams Fur Mixer Relationship Specialty Start Date End Date Shaikh Obrien MD PCP - General 09/07/23
--- OUTSIDE RECORDS SUMMARY | 2025-05-05 00:48 | XMS_ITS | Clinical Summary ---
Author Organization [facility] Address [address] [place] [address] Care Team Providers Care Infection Prevention Specialist Name Role Phone Kwesi Gianna STACY Unavailable [phone] Unallocated, [facility] Provider Primary Care Provi marilu Shaikh SHAHANA Obrien Unavailable [phone] Allergies Active Allergy Reactions Criticality Noted Date Comments Codeine Hives 08/08/2023 Penicillins Hives,GI intolerance 08/08/2023 Abd pain Promethazine Swelling,Unknown High 10/24/2010 Other reaction(s): Facial Swelling Quetiapine Unknown 08/08/2023 Medications [facility] [address] UNIT/GM powder Apply 1 application topically in [...] physician appointments and anticipated to need it shelter and lifelong Assessment & Plan (11/01/2023 11:59 [...] physician appointments and anticipated to need it shelter and lifelong Ambulatory dysfunction 11/01/2023 Assessment & [...] physician appointments and anticipated to need it shelter and lifelong Compression fracture of L1 lumbar [...] (#1) 2025 08/27/2024 Insurance BS Care Teams Infection Prevention Specialist Relationship Specialty Start Date End Date Unallocated, Noms Provider, [address] [place] [address] PCP - General Family Medicine 06/04/24 Shaikh Obrien MD [address] [place] [address] PCP - [employer] 11/03/24 Gianna Orosco NP Nurse Practitioner Family Medicine 04/12/24
--- OUTSIDE RECORDS SUMMARY | 2025-05-05 00:48 | XMS_ITS | Encounter Summary ---
Author Organization [employer] [facility] tem Address [id number] [address] [place] [address] Care Team Providers Care Radiation Physicist Name Role Phone No Pcp, No Pcp Primary Care Provider Unavailabl e Encounter Details Date Type Department Care Team (Late st Contact Info) Description 10/03/2024 Telephone [facility] Internal Medicine - Family Medicine [address] [place] [address] Brenda Kim, DEFENCE INTELLIGENCE ANALYST-LOSS PREVENTION AND SAFETY MANAGER [address] [place] [address] Social History Tobacco Use Types Packs/Day Years [...] on filedocumented in this encounter Care Teams Radiation Physicist Relationship Specialty Start Date End Date No Pcp, [place] [address] PCP - General Family Medicine 10/01/24 documented as of this encounter
--- OUTSIDE RECORDS SUMMARY | 2025-05-05 00:48 | XMS_ITS | Clinical Summary ---
Author Organization [facility] Address [address] [place] [address] Phone Care Team Providers Care Community Manager Name Role Phone Unavailable Primary Care Provider [...] this topic Medical Devices Implanted Type Area Jr. Java Developer Device Identifier Shelf Expiration Date Model / Serial / Lot Bone Graft, Osteocel Plus, Cellular,Matri x, 10cc Case [id number] Implanted:Qty: 1 on 12/26/2020 by Kailash Serrano MD [employer] 07/16/2025 [id number] / [id number] / Description:Converted from [facility]. Please see archived information for full log information. Bone Graft, Osteocel Plus, Cellular,Matri x, 10cc Case [id number] Implanted:Qty: 1 on 12/26/2020 by Kailash Serrano MD [employer] 07/16/2025 [id number] / [id number] / Description:Converted from [facility]. Please see archived information for full log information. Bone Graft, Osteocel Plus, Cellular,Matri x, 10cc Case [id number] Implanted:Qty: 1 on 12/26/2020 by Kailash Serrano MD [employer] 07/16/2025 [id number] / [id number] / Description:Converted from [facility]. Please see archived information for full log information. Bone Matrix, Osteocel Pro Cellular, Large Case [id number] Implanted:Qty: 1 on 09/18/2021 by Kailash Serrano MD [employer] 11/07/2025 [id number] / [id number] / Description:Converted from [facility]. Please see archived information for full log information. Bone Graft, Osteocel Plus, Cellular,Matri x, 10cc Case [id number] Implanted:Qty: 1 on 09/18/2021 by Kailash Serrano MD [employer] 09/02/2022 [id number] / [id number] / Description:Converted from [facility]. Please see archived information for full log information. Bone Matrix, Osteocel Pro Cellular, Medium Case [id number] Implanted:Qty: 1 on 09/21/2021 by Kailash Serrano MD [employer] 11/07/2025 [id number] / [id number] / Description:Converted from [facility]. Please see archived information for full log information. Screw, Reline-O, 6.5x50mm 2s Polyaxial Case [id number] Implanted:Qty: 2 on 12/26/2020 by Kailash Serrano MD Implant [employer] [id number] / / Description:Converted from [facility]. Please see archived information for full log information. Screw, Reline-O, 4.5x45mm 2s Polyaxial Case [id number] Implanted:Qty: 2 on 12/26/2020 by Kailash Serrano MD Implant [employer] [id number] / / Description:Converted from [facility]. Please see archived information for full log information. 5.5x500 Jrod Case [id number] Implanted:Qty: 2 on 12/26/2020 by Kailash Serrano MD Implant [employer] [id number] / / Description:Converted from [facility]. Please see archived information for full log information. Additional Information:5.5x500 JRODper bill only jdr 12/29/2020 1357pm Screw, Reline-O, 5.5x40mm 2s Polyaxial Case [id number] Implanted:Qty: 4 on 12/26/2020 by Kailash Serrano MD Implant [employer] [id number] / / Description:Converted from [facility]. Please see archived information for full log information. Screw, Reline-O, 6.5x45mm 2s Polyaxial Case [id number] Implanted:Qty: 4 on 12/26/2020 by Kailahs Serrano MD Implant [employer] [id number] / / Description:Converted from [facility]. Please see archived information for full log information. Sandra Attrax, 10cc Us Case [id number] Implanted:Qty: 2 on 12/26/2020 by Kailash Serrano MD Implant [employer] 07/20/2025 [id number] / / [id number] Description:Converted from [facility]. Please see archived information for full log information. Screw, Reline-O, 5.0x45mm 2s Polyaxial Case [id number] Implanted:Qty: 1 on 12/26/2020 by Kailash Serrano MD Implant [employer] [id number] / / Description:Converted from [facility]. Please see archived information for full log information. Screw, Reline-O, 5.5x35mm 2s Polyaxial Case [id number] Implanted:Qty: 6 on 12/26/2020 by Kailash Serrano MD Implant [employer] [id number] / / Description:Converted from [facility]. Please see archived information for full log information. Screw, Reline-O, 5.5x45mm 2s Polyaxial Case [id number] Implanted:Qty: 1 on 12/26/2020 by Kailash Serrano MD Implant [employer] [id number] / / Description:Converted from [facility]. Please see archived information for full log information. Reline-O Conn, 5-6/5-6mm Rotating O-O Case [id number] Implanted:Qty: 1 on 12/26/2020 by Kailash Serrano MD Implant [employer] [id number] / / Description:Converted from [facility]. Please see archived information for full log information. Reline-O Conn, 5-6/5-6mm O-H Rotating Case [id number] Implanted:Qty: 1 on 12/26/2020 by Kailash Serrano MD Implant [employer] [id number] / / Description:Converted from [facility]. Please see archived information for full log information. Screw, Reline-O, 6.5x40mm 2s Polyaxial Case [id number] Implanted:Qty: 2 on 12/26/2020 by Kailash Serrano MD Implant [employer] [id number] / / Description:Converted from [facility]. Please see archived information for full log information. Screw, Reline-O, 7.5x45mm 2s Polyaxial Case [id number] Implanted:Qty: 5 on 09/18/2021 by Kailash Serrano MD Implant [employer] [id number] / / Description:Converted from [facility]. Please see archived information for full log information. Screw, Reline-O, 8.5x90mm 2s Poly Iliac Case [id number] Implanted:Qty: 2 on 09/18/2021 by Kailash Serrano MD Implant [employer] [id number] / / Description:Converted from [facility]. Please see archived information for full log information. Screw, Reline-O, 7.5x40mm 2s Polyaxial Case [id number] Implanted:Qty: 2 on 09/18/2021 by Kailash Serrano MD Implant [employer] [id number] / / Description:Converted from [facility]. Please see archived information for full log information. Bobby Reline-O 5.5mm Case [id number] Implanted:Qty: 1 on 09/18/2021 by Kailash Serrano MD Implant [employer] [id number] / / Description:Converted from [facility]. Please see archived information for full log information. Additional Information:per bill only, verified by opnote Reline-O Conn, 5-6/5-6mm Rotating O-O Case [id number] Implanted:Qty: 4 on 09/18/2021 by Kailash Serrano MD Implant [employer] [id number] / / Description:Converted from [facility]. Please see archived information for full log information. Bobby, Reline-0, 5.5 X 90mm, Lordotic Case [id number] Implanted:Qty: 1 on 09/18/2021 by Kailash Serrano MD Implant [employer] [id number] / / Description:Converted from [facility]. Please see archived information for full log information. Bobby, Reline-O Cocr, 5.4g588yi Straight Case [id number] Implanted:Qty: 1 on 09/18/2021 by Kailash Serrano MD Implant [employer] [id number] / / Description:Converted from [facility]. Please see archived information for full log information. Bobby, Reline-0, 5.5 X 40mm, Lordotic Case [id number] Implanted:Qty: 1 on 09/21/2021 by Kailash Serrano MD Implant [employer] [id number] / / Description:Converted from [facility]. Please see archived information for full log information. Reline Lock Screw, Closed [place] Case [id number] Implanted:Qty: 2 on 09/21/2021 by Kailash Serrano MD Implant [employer] [id number] / / Description:Converted from [facility]. Please see archived information for full log information. Reline-O Conn, 5-6/5-6mm O-H Med Case [id number] Implanted:Qty: 2 on 09/21/2021 by Kailash Serrano MD Implant [employer] [id number] / / Description:Converted from [facility]. Please see archived information for full log information. Screw, Reline Lock, 5.5mm Open Tulip Case [id number] Implanted:Qty: 26 on 12/26/2020 by Kailash Serrano MD Neuro Interventional Implant [employer] [id number] / / Description:Converted from [facility]. Please see archived information for full log information. Aspen Reline Lock, 5.5mm Open Tulip Case [id number] Implanted:Qty: 30 on 09/18/2021 by Kailash Serrano MD Neuro Interventional Implant [employer] [id number] / / Description:Converted from [facility]. Please see archived information for full log information. Screw, Reline Lock, 5.5mm Open [place]ip Case [id number] Implanted:Qty: 2 on 09/21/2021 by Kailash Serrano MD Neuro Interventional Implant [employer] [id number] / / Description:Converted from [facility]. Please see archived information for full log information. Insurance [facility]
--- OUTSIDE RECORDS SUMMARY | 2025-05-05 00:48 | XMS_ITS | Encounter Summary ---
Author Organization [facility] Address [address] [place] [address] Care Team Providers Care Library Circulation Technician Name Role Phone OroscoGianna carvalho PSYCHOLOGIST CHIEF Unavailable Unallocated, Noms Provider Primary Care Provi marilu Shaikh SHAHANA Obrien Unavailable [phone] Encounter Details Date Type Department Care Team (Late st Contact Info) Description 08/27/2024 Orders Only [facility] [address] [place] [address] Shaikh Obrien MD [address] [place] [address] Social History Tobacco Use Types [...] on filedocumented in this encounter Care Teams Library Circulation Technician Relationship Specialty Start Date End Date Unallocated, Noms Provider, [address] [place] [address] PCP - General Family Medicine 06/04/24 Shaikh Obrien MD [address] [place] [address] [facility]03/24 Gianna Orosco NP Nurse Practitioner Family Medicine 04/12/24 documented as of this encounter
--- OUTSIDE RECORDS SUMMARY | 2025-05-05 00:48 | XMS_ITS | Clinical Summary ---
Author Organization [employer] [facility] Address [id number] [address] [place] [address] Care Team Providers Care Staffing Rn Name Role Phone No Pcp, No Pcp [...] 4:12 AM 10/01/2024 7:23 PM Care Teams Staffing Rn Relationship Specialty Start Date End Date No Pcp, No Pcp SILVANA Mcfarlane [address] PCP - General Family Medicine 10/01/24
--- OUTSIDE RECORDS SUMMARY | 2025-05-05 00:48 | XMS_ITS | CCD ---
Author Organization [facility] Care Team Providers Care Wire Hanger Name Role Phone Required, No Pcp Unavailable [...] Care Unavailable JON, DR ABHINAV Livingston Admitting UnavailDR ABHINAV Kc Consulting UnavailDR CLIF [...] DR ABHINAV Livingston Attending Unavailabl e [facility] Primary Care Unavailable REINECK, DR ABHINAV Livingston Admitting Unavailabl e REINECK, DR ABHINAV Livingston Consulting Unavailabl e VETO ., IVON Admitting Unavailable VETO ., IVON Attending Unavailable [facility] Primary Care Unavailable PATRICK, DEBORAH Aponte Consulting Unavailable [facility] Primary Care Unavailable REINECK, DR ABHINAV Livingston Admitting Unavailabl e REINECK, DR ABHINAV Livingston Consulting Unavailabl e REINECK, DR ABHINAV Livingston Attending Unavailabl e HAY ., DR LOW Admitting Unavailable [facility] Primary Care Unavailable HAY ., DR LOW Attending Unavailable ZIEBER, DR ENRIQUE Santana Consulting Unavailable HAY ., DR LOW Consulting Unavailable LUE ., GUILLERMINA M Admitting Unavailable LUE ., GUILLERMINA M Attending Unavailable [facility] [place] Primary Care Unavailable [facility] Primary Care Unavailable LUE ., GUILLERMINA M Admitting Unavailable LUE ., GUILLERMINA M Consulting Unavailable LUE ., GUILLERMINA M Attending Unavailable CANDICE MATTA Consulting Unava ilRACHEL Kirk Consulting Unavailable DIAB ., KYRA Admitting Unavailable [facility] Primary Care Unavailable DIAB ., KYRA Attending Unavailable GRECHNY ., BONITA HULL Consulting Unavailabl e [facility] Primary Care Unavailable LUE ., GUILLERMINA M Admitting Unavailable LUE ., GUILLERMINA M Consulting Unavailable LUE ., GUILLERMINA Aponte Attending Unavailable PAY ., DR RODRIGUEZ Admitting Unavailable PAY ., DR RODRIGUEZ Consulting Unavailable [facility] Primary Care Unavailable PAY ., DR RODRIGUEZ Attending Unavailable [facility] Primary Care Unavailable REINECK, DR ABHINAV Livingston Admitting Unavailabl e JON, DR ABHINAV Livingston Consulting Unavailabl e JON, DR ABHINAV Livingston Attending Unavailabl e KORIN STANLEY Consulting Unavailable Otoniel, Dr. Lex De Los Santos Attending Unava ollie Obrien MD, [facility] Primary Care Provider SHAIKH OBRIEN Attending Unavailable SHAIKH OBIREN Attending Unavailable GENNY OROSCO Attending Unavailabl jacque Orosco SILK EXAMINER, Genny Unavailable Unallocated , Noms Provider Primary Care Provi marilu Kostas Ching MD Primary Care Provider No Pcp, No Pcp Primary Care Provider Unavailrenee e BIN, Primary Care Unavailable GREYSON ROBERTSON Attending Unavailable ЕЛЕНА LOYD Admitting Unavailable ROMMEL FOLEY Consulting Unavailable Bin HARKINS, Primary Care Provider Unavailable Primary Care Provider UnavailLEX Mathews Attending Unavailable Bin, Attending Unavailable Shaikh Obrien Admitting Unavailable Shaikh Obrien Primary Care Unavailable Armando Spaulding Admitting Unavailab Armando Farris Attending Unavailab le Shaikh Obrien Primary Care Unavailable Amari, Deirdre L Primary Care Physician [phone] Amari, Deirdre L Attending Unavailable Amari, Deirdre L Admitting Unavailable Amari, PARAMEDICAL AIDE Deirdre L Attending Unavailable Amari, PARAMEDICAL AIDE Deirdre L Attending Unavailable Amari, PARAMEDICAL AIDE Deirdre L Attending Unavailable Amari, PARAMEDICAL AIDE Deirdre L Attending Unavailable Amari, PARAMEDICAL AIDE Deirdre L Admitting Unavailable Amari, PARAMEDICAL AIDE Deirdre L Attending Unavailable Richardson Craig Attending Unavailable Amari, PARAMEDICAL AIDE Deirdre L Attending Unavailable Amari, PARAMEDICAL AIDE Deirdre L Attending Unavailable Amari, Deirdre L Attending Unavailable Amari, Deirdre L Admitting Unavailable Amari, Deirdre L Attending Unavailable Allergies Allergy Classification Reported Allergen(s) Allergy Type Date of Onset Reaction(s) Facility Opioid Agonists (1 source) Codeine Drug Allergy Unknown [facility] Penicillins (antibiotic) (1 source) Penicillin Drug Allergy Unknown [facility] QUEtiapine (1 source) QUEtiapine Drug Allergy Unknown [facility] (20 sources) Codeine; Translations: [Codeine] Drug Allergy 1 Hives, Facial Swelling, Swelling, Other, Unknown [facility] Work Phone: (20 sources) Penicillins; Translations: [Penicillins] Allergy to drug (finding) 1 Swelling, Hives, Unknown [facility] Work Phone: (20 sources) Promethazine; Translations: [promethazine] Drug Allergy 1 Swelling, Unknown [facility] (1 source) QUEtiapine Drug Allergy Seizures [facility] (2 sources) Codeine Drug Allergy [address] [facility] (7 sources) gabapentin; Translations: [Neurontin] Drug Allergy [facility] (1 source) Levamisole Drug Allergy [facility] (1 source) Morphine Drug Allergy [address] [facility] (2 sources) Penicillins Drug allergy (disorder) [address] [facility] (1 source) QUEtiapine Drug Allergy [address] [facility] (14 sources) Penicillins; Translations: [penicillins] Drug Allergy 3 Hives, GI intolerance [facility] (14 sources) QUEtiapine; Translations: [QUETIAPINE] Drug Allergy 3 Unknown, Seizure [facility] (4 sources) Penicillin; Translations: [PENICILLIN] Drug Allergy 6 Facial Swelling [facility] (4 sources) Phenergan Plain; Translations: [PHENERGAN PLAIN] Propensity to adverse reactions to drug 6 Swelling, Facial Swelling [facility] (1 source) Codeine Drug Allergy 0 [facility] (1 source) Penicillins Drug allergy (disorder) 0 [facility] (1 source) QUEtiapine Drug Allergy 2 [facility] Medications Current Medications Medication Drug Class(es) Dates Sig (Normalized) Sig (Original) Ankle Foot Orthosis (1 source) Start: 09-23-2021 Ankle Foot Orthosis ; for foot drop Quantity: 2 Refills: 0 Ordered: 23-Sep-2021 Janell Douglas Start: 23-Sep-2021 Status: Discontinued Generic Substitution Allowed [...] q12hr, # 2 cap(s), Refills(s) 0, [id number], 156, cm, 07/16/22 10:58:00 EST, Height/Length Dosing, [...] day(s), # 2 tab(s), Refills(s) 0, Pharmacy: [place] [address] [facility], 156, cm, 01/06/22 10:53:00 EDT, Height/Length [...] 02/13/2024 Active take 2 tablets by mo uth [...] Ordered: 01-Jan-2021 Emma Izaguirre Generic Substitution Allowed gabapentin 800 mg [...] Daily, # 30 tab(s), Refills(s) 3, Pharmacy: [address], 156, cm, 02/04/22 15:47:00 EDT, Height/Length Dosing, 78, kg, 02/04/22 15:47:00 EDT, Weight Dosing Start Date: 02/25/22 Status: Ordered nystatin 100 unt/mg topical powder (10 sources) Polyene Antifungal Start: 03-07-2023 Nyamyc [id number] UNIT/GM powder Apply 1 application topically in [...] Ordered Start: 05-18-2011 take 1 capsule by [facility] once daily omeprazole (PriLOSEC) [address] [...] Daily, # 30 tab(s), Refills(s) 11, [id number], 156, cm, 07/16/22 10:58:00 EST, Height/Length Dosing, 78, kg, 07/16/22 10:58:00 EST, Weight Dosing Start Date: 07/16/22 Status: Ordered Start: 03-10-2022 take 1 tablet by marlen once daily oxybutynin 10 mg ER Tab 10 mg = 1 tab(s), Oral, Daily, # 30 tab(s), Refills(s) 3, Pharmacy: [facility] [facility], 156, cm, 02/04/22 [...] 07-Jan-2021 Generic Substitution Allowed polyethylene glycol 3350 83909 mg powder for oral solution (6 sources) Osmotic Laxative Start: 09-30-2021 polyethylene glycol 3350 oral powder for reconstitution ; 17 gram(s) orally 3 times a day - available over the counter at any pharmacy Quantity: 0 Refills: 0 Ordered: 30-Sep-2021 Hoover Concetta Start: 30-Sep-2021 Generic Substitution Allowed Start: 04-17-2015 polyethylene g lycol (MIRALAX) 17 gram packet Take 17 g by mouth daily. 04/17/2015 Active polyethylene glycol 3350 551721 mg / potassium chloride 2970 mg / sodium bicarbonate 6740 mg / sodium chloride 5860 mg / sodium sulfate 24662 mg powder for oral solution (9 sources) [...] Daily, # 30 cap(s), Refills(s) 0, Pharmacy: [address], 156, cm, 01/07/22 13:43:00 EDT, Height/Length [...] Allowed docusate sodium 50 mg / sennosides, group home 8.6 mg oral tablet (3 sources) Start: 10-01-2024 End: 10-01-2024 take 1 tablet by mouth every twelve hours as needed for constipation 1 tablet, oral, Every 12 hours PRN, constipation, Starting on Tue10/01/24 at 0412 Start: 01-01-2021 take 2 tablets by mo [facility] twice daily for pain sennosides-docusate 8.6 mg-50 [...] day Quantity: 30 Refills: 0 Ordered: 01-Jan-2021 Emma [...] oral capsule (5 sources) Nitrofuran Antibacterial Start: 023 Macrobid 100 mg Cap 100 mg = 1 cap(s), Oral, As Directed, Take 1 tab by mouth after catheter change then take second tab 12 hours later. Take with food., # 2 cap(s), Refills(s) 0, Pharmacy: [facility] #[id number], 156, cm, 11/26/22 8:15:00 EDT, Height/Length Dosing, [...] 06-13-2023 Chronic Other aftercare (2 sources) Other intermediate accountant (current) drug therapy; Translations: [Other fdc (current) drug therapy] Onset: 2 Episodic Other [...] Provider Letter Provider Letter March 27, 2025 OMR[address]ES [address] [place] [address] : 1975 Dear Morales, We have been trying to reach you with no success. It is important that you return our call regarding your message you left upon receiving this letter. Also, at the time of your call, please provide us with your current information. Thank you for your prompt attention to this matter. Sincerely, [place] [address] [place] [address] [facility] Reminderson 12-31-2024 Reminders Reminders From: Deirdre [...] 26.6 % (14.0 - 50.0) 12/25/2024 10:00 [place] Auto (L) 3.2 % (4.0 - 14.0) 12/25/2024 10:00 Eos Auto 4.3 % (0.0 - 8.0) 12/25/2024 10:00 Basophil Auto 0.7 % (0.0 - 2.0) 12/25/2024 10:00 Neutro Absolute (H) 8.1 E9/L (2.0 - 7.5) 12/25/2024 10:00 Lymph Absolute 3.3 E9/L (1.0 - 4.0) 12/25/2024 10:00 [place] Absolute 0.4 E9/L (0.2 - 1.0) 12/25/2024 [...] to current address. From: Maris Bowden MA (B - Clinical) To: Deirdre Hale; Sent: 12/31/2024 16:57:07 EDT Show up: 12/31/2024 16:57:00 EDT Subject: RE: Ambulatory Reminder Pt called back for results. Would like Liver US order to go to [facility]. Pt also wanted to update you that the cellulitis has improved, however she has hard blisters behind her heels and it is starting to go up her leg. She wanted to know if you had any recommendations. Normal [facility] Patient Letter [facility] December 27, 2024 MORALES LEE [address] [place] [address] : 1975 Our office has been trying to reach you, we have been unable to leave you a message due to voicemail not being set up. Please contact our office when you get this letter. Family Medicine [address] [address] Normal [facility] CBC w/ Auto DiffOrdered By: SYSTEM SYSTEM on 12-25-2024 Basophils/100 WBC (Bld) 0.7 % Normal 0.0-2.0 R emisol Heme Comment on above: Performed By: #### 2 [id number] #### [facility] [address] [place] [address] Basophils/Leukocytes Auto (Bld) [Pure # fraction] 0.1 E9/L Normal 0.0-0.2 Remisol Heme Comment on above: Performed By: #### 2 [id number] #### [facility] [address] [place] [address] Eosinophils (Bld) [#/Vol] 0.5 E9/L Normal 0.0-0.5 Remisol Heme Comment on above: Performed By: #### 2 [id number] #### [facility] [address] [place] [address] Eosinophils/100 WBC (Bld) 4.3 % Normal 0.0-8.0 Remisol Heme Comment on above: Performed By: #### 2 [id number] #### [facility] [address] [place] [address] Erythrocyte distribution width (RBC) [Ratio] 15.3 % High 10.9-14.2 Remisol Heme Comment on above: Performed By: #### 2 [id number] #### [facility] [address] [place] [address] Hematocrit (Bld) [Volume fraction] 42.1 % Normal 34.0-46.0 Remisol Heme Comment on above: Performed By: #### 2 958471 #### [facility] [address] [place] [address] Hemoglobin (Bld) [Mass/Vol] 15.1 g/dL Normal 12.0-16.0 Remisol Heme Comment on above: Performed By: #### 2 [id number] #### [facility] [address] [place] [address] Lymphocytes (Bld) [#/Vol] 3.3 E9/L Normal 1.0-4.0 Remisol Heme Comment on above: Performed By: #### 2 992248 #### [facility] [address] [place] [address] Lymphocytes/100 WBC (Bld) 26.6 % Normal 14.0-50.0 Remisol Heme Comment on above: Performed By: #### 2 [id number] #### [facility] [address] [place] [address] MCH (RBC) [Entitic mass] 30.7 pg Normal 27.0-34.0 Remisol Heme Comment on above: Performed By: #### 2 [id number] #### [facility] [address] [place] [address] MCHC (RBC) [Mass/Vol] 35.9 g/dL Normal 31.4-36.0 Rem isol Heme Comment on above: Performed By: #### 2 [id number] #### [facility] [address] [place] [address] MCV (RBC) [Entitic vol] 85.6 fL Normal 80.0-100.0 R emisol Heme Comment on above: Performed By: #### 2 [id number] #### [facility] [address] [place] [address] Monocytes (Bld) [#/Vol] 0.4 E9/L Normal 0.2-1.0 R emisol Heme Comment on above: Performed By: #### 2 969154 #### [facility] [address] [place] [address] Neutrophils (Bld) [#/Vol] 8.1 E9/L High 2.0-7.5 Remisol Heme Comment on above: Performed By: #### 2 870479 #### [facility] [address] [place] [address] Neutrophils/100 WBC (Bld) 65.2 % Normal 36.0-75.0 Remisol Heme Comment on above: Performed By: #### 2 [id number] #### [facility] [address] [place] [address] Platelet 379.0 E9/L Normal 150.0-500. 0 Remisol Heme Comment on above: Performed By: #### 2 [id number] #### [facility] [address] [place] [address] Platelet mean volume (Bld) [Entitic vol] 7.1 fL Normal 6.4-10.8 Remisol Heme Comment on above: Performed By: #### 2 [id number] #### [facility] [address] [place] [address] RBC (Bld) [#/Vol] 4.9 E12/L Normal 4.3-5.9 Remisol Heme Comment on above: Performed By: #### 2 [id number] #### [facility] [address] [place] [address] WBC corrected for nucl RBC Auto (Bld) [#/Vol] 12.4 E9/L High 4.0-11.0 Remisol Heme Comment on above: Performed By: #### 2 408211 #### [facility] [address] [place] [address] CHEMISTRYOrdered By: SYSTEM SYSTEM on 12-25-2024 25-hydroxyvitamin [...] Comment on above: Performed By: #### 2 [id number] #### [facility] [address] [place] [address] Anion gap [Moles/Vol] 10 mmol/L Normal 6-16 Rem isol Chem Comment on above: Performed By: #### 2 085809 #### [facility] [address] [place] [address] Bilirubin [Mass/Vol] 0.3 mg/dL Normal 0.0-1.1 Jitendra carole Chem Comment on above: Performed By: #### 2 [id number] #### [facility] [address] [place] [address] Calcium [Mass/Vol] 9.3 mg/dL Normal 8.9-11.1 Remiso l Chem Comment on above: Performed By: #### 2 513758 #### [facility] [address] [place] [address] Chloride [Moles/Vol] 100 mmol/L Low 101-111 Jitendar carole Chem Comment on above: Performed By: #### 2 [id number] #### [facility] [address] [place] [address] CO2 [Moles/Vol] 32 mmol/L High 21-31 Remisol Chem Comment on above: Performed By: #### 2 [id number] #### [facility] [address] [place] [address] Creatinine [Mass/Vol] 0.7 mg/dL Normal 0.5-1.3 Rem isol Chem Comment on above: Performed By: #### 2 568905 #### [facility] [address] [place] [address] Globulin (S) [Mass/Vol] 3.9 g/dL Normal 1.4-4.0 R emisol Chem Comment on above: Performed By: #### 2 [id number] #### [facility] [address] [place] [address] Glucose [Mass/Vol] 111 mg/dL Normal 55-199 Remiso l Chem Comment on above: Performed By: #### 2 403702 #### [facility] [address] [place] [address] Potassium [Moles/Vol] 3.4 mmol/L Low 3.5-5.3 Rem isol Chem Comment on above: Performed By: #### 2 [id number] #### [facility] [address] [place] [address] Protein [Mass/Vol] 8.1 g/dL High 6.0-7.8 Remiso l Chem Comment on above: Performed By: #### 2 659011 #### [facility] [address] [place] [address] Sodium [Moles/Vol] 139 mmol/L Normal 135-145 Remiso l Chem Comment on above: Performed By: #### 2 977326 #### [facility] [address] [place] [address] Urea nitrogen [Mass/Vol] 13 mg/dL Normal 5-21 Remisol Chem Comment on above: Performed By: #### 2 [id number] #### [facility] [address] [place] [address] CMPon 12-25-2024 Albumin/Globulin (S) [Mass conc ratio] 1.1 Normal 1.1-2.2 [facility] Comment on above: Performed By: #### 2 324394 #### [facility] [address] [place] [address] ALP [Catalytic activity/Vol] 191 Int._Unit/L High 21-98 [facility] Comment on above: Performed By: #### 2 318114 #### [facility] [address] [place] [address] ALT No additional P-5'-P [Catalytic activity/Vol] 19 Int._Unit/L Normal 6-46 [facility] Comment on above: Performed By: #### 2 [id number] #### [facility] [address] [place] [address] AST [Catalytic activity/Vol] 17 Int._Unit/L Normal 5-43 [facility] Comment on above: Performed By: #### 2 [id number] #### [facility] [address] [place] [address] Urea nitrogen/Creatinine [Mass ratio] 19 No Units Normal 10-20 [facility] Comment on above: Performed By: #### 2 [id number] #### [facility] [address] [place] [address] HEMATOLOGYOrdered By: SYSTEM SYSTEM on 12-25-2024 Monocytes/100 WBC (Bld) 3.2 % Low 4.0 - 14.0 % Remisol Heme [id number] By: Ivanna spicer on 12-25-2024 HbA1c (Bld) [Mass fraction] 5.5 % Normal <=5.9 [facility] ChemAutoSS Comment on above: Performed By: #### 7 [id number] #### [facility] [address] [place] [address] Reminderson 12-25-2024 Reminders Reminders From: Deirdre Hale [...] 26.6 % (14.0 - 50.0) 12/25/2024 10:00 [place] Auto (L) 3.2 % (4.0 - 14.0) 12/25/2024 10:00 Eos Auto 4.3 % (0.0 - 8.0) 12/25/2024 10:00 Basophil Auto 0.7 % (0.0 - 2.0) 12/25/2024 10:00 Neutro Absolute (H) 8.1 E9/L (2.0 - 7.5) 12/25/2024 10:00 Lymph Absolute 3.3 E9/L (1.0 - 4.0) 12/25/2024 10:00 [place] Absolute 0.4 E9/L (0.2 - 1.0) 12/25/2024 [...] (L) <7.0 ng/mL (30.0 - 100.0) Normal [facility] Vitamin D 25 Hydroxyon 12-25 25-hydroxyvitamin D3 [Mass/Vol] ng/mL Low 30.0-100.0 [facility] Comment on above: Performed By: #### 5 [id number] #### [facility] [address] [place] [address] eGFROrdered By: SYSTEM [employer] on 12-25-2024 eGFR 104 mL/min/1.73 m2 Normal >=59 Remiso l Chem Comment on above: Performed By: #### 1 [id number] #### [facility] [address] [place] [address] PAP [id number] 12-19-2024 Cytology report Cyto stain Doc (Cvx/Vag) Note Invalid Interpretation Code [facility] Comment on above: Order Comment: had t otaelena hyst 20 years ago Result Comment: TEST S RESULT FLAG UNITS REF RANGE LAB Clinician Provided Cytology Information Source.............Vagina No. of containers..01 ThinPrep Vial DIAGNOSIS: 01 NEGATIVE FOR INTRAEPITHELIAL LESION OR MALIGNANCY. CELLULAR CHANGES ASSOCIATED WITH INFLAMMATION ARE PRESENT. THIS SPECIMEN WAS RESCREENED PART OF OUR INDUSTRIAL TRUCK OPERATOR PROGRAM. Specimen adequacy: 01 Satisfactory for evaluation. Performed by: Faye Conn, Application Internship ([facility]) QC reviewed by: Brittney Martin, Application Internship ([facility]) . 01 Note: Note 01 The Pap [...] High,A-Abnormal,AA-Critical Abnormal Performed at: 01 [facility] [address] [place] [address] Samantha Rodriguez MD, Performed By: #### 1 [id number] #### [facility] [address] [place] [address] HPV 16+18+31+33+35+39+45+51+ 52+56+58+59+66+68 DNA Probe+sig amp Ql (Cvx) Negative Invalid Interpretation Code Negative [facility] Comment on above: Order Comment: had t otaelena hyst 20 years ago Result Comment: This nucleic acid amplification test detects fourteen high-risk HPV types (16,18,31,33,35,39,45,51,52,56,58,59,66,68) without differentiation. Performed at: [facility] [address] [place], [place] [id number] MD Michael Singh Performed at: =G [facility] [address] [place], [place] [id number] MD Michael Singh Performed By: #### 1 [id number] #### [facility] [address] [place] [address] Reminderson 12-19-2024 Reminders Reminders From: Deirdre Hale To: [facility] - Clinical; Sent: 12/19/2024 13:17:01 EDT Show up: 12/19/2024 13:17:00 EDT Subject: Ambulatory Reminder Due Date/Time: 12/20/2024 13:16:00 EDT pap was negative Results: Date Result Name Value Ref Range 12/12/2024 14:07 HPV Aptima Negative (Negative - ) 12/12/2024 14:07 PAP Note unable to LVM not set up, will try again Normal [facility] Ambulatory Visit Summaryon 0 12-12-2024 Ambulatory Visit [...] Follow-Up Appointments Tuesday 9:20 AM EDT Where: [place] [id number]- You Need to Complete the Following CBC [...] you for choosing us for your care. [facility] Ambulatory Visit Summary Ambulatory Visi t Summary [...] Follow-Up Appointments Tuesday 9:20 AM EDT Where: [place] [address]- You Need to Complete the Following CBC [...] for choosing us for your care. Normal [facility] Office/Clini c Noteon [...] vaginal discharge. Hysterectomy Neurologic: Grossly normal Skin: [place], moist, no tenting Lymph Nodes: No cervical [...] cramping, # 10 tab(s), Refills(s) 0, Pharmacy: [facility], 154, cm, 12/12/24 10:51:00 EDT, Height/Length Dosing, 83.5, kg, 12/12/24 10:51:00 EDT, Weight... fluconazole, 150 mg = 1 tab(s), Oral, Once, take 1 tab on day one and 1 tab on day four, # 2 tab(s), Refills(s) 1, Pharmacy: [facility], 154, cm, 12/12/24 10:51:00 EDT, Height/Length Dosing, 83.5, kg, 12/12/24 10:51:00 EDT, Weight Dosing furosemide, 20 mg = 1 tab(s), Oral, Daily, # 30 tab(s), Refills(s) 0, Pharmacy: [facility], 154, cm, 12/12/24 10:51:00 EDT, Height/Length Dosing, 83.5, kg, 12/12/24 10:51:00 EDT, Weight Dosing CBC w/ Auto Diff CBC w/ Auto Diff Comprehensive Metabolic Panel ECG 12 Lead Adult Echo Transthoracic Complete Est Preventative 40 to 64 years [id number] PAP w/ HPV and Genotype rflx 2. Breast cancer screening (Z12.39: Encounter for other screening for malignant neoplasm of breast) order for mammogram provieded Ordered: dicyclomine, 20 mg = 1 tab(s), Oral, BID, PRN Spasm, 30 to 60 minutes before meals for stomach cramping, # 10 tab(s), Refills(s) 0, Pharmacy: [facility], 154, cm, 12/12/24 10:51:00 EDT, Height/Length Dosing, 83.5, kg, 12/12/24 10:51:00 EDT, Weight... fluconazole, 150 mg = 1 tab(s), Oral, Once, take 1 tab on day one and 1 tab on day four, # 2 tab(s), Refills(s) 1, Pharmacy: [facility], 154, cm, 12/12/24 10:51:00 EDT, Height/Length Dosing, 83.5, kg, 12/12/24 10:51:00 EDT, Weight Dosing furosemide, 20 mg = 1 tab(s), Oral, Daily, # 30 tab(s), Refills(s) 0, Pharmacy: [facility], 154, cm, 12/12/24 10:51:00 EDT, Height/Length Dosing, 83.5, kg, 12/12/24 10:51:00 EDT, Weight Dosing CBC w/ Auto Diff CBC w/ Auto Diff Comprehensive Metabolic Panel ECG 12 Lead Adult Echo Transthoracic Complete Est Preventative 40 to 64 years [address] PAP [id number] w/ HPV and Genotype rflx 3. Cervical cancer screening (Z12.4: Encounter for screening for malignant neoplasm of cervix) pap obtained. pt had hyst 20 years ago Ordered: dicyclomine, 20 mg = 1 tab(s), Oral, BID, PRN Spasm, 30 to 60 minutes before meals for stomach cramping, # 10 tab(s), Refills(s) 0, Pharmacy: [facility], 154, cm, 12/12/24 10:51:00 EDT, Height/Length Dosing, 83.5, kg, 12/12/24 10:51:00 EDT, Weight... fluconazole, 150 mg = 1 tab(s), Oral, Once, take 1 tab on day one and 1 tab on day four, # 2 tab(s), Refills(s) 1, Pharmacy: [facility], 154, cm, 12/12/24 10:51:00 EDT, Height/Length Dosing, 83.5, kg, 12/12/24 10:51:00 EDT, Weight Dosing furosemide, 20 mg = 1 tab(s), Oral, Daily, # 30 tab(s), Refills(s) 0, Pharmacy: [facility], 154, cm, 12/12/24 10:51:00 EDT, Height/Length Dosin (more content not included)... Normal [facility] Comment on above: Result Comment: Elec tronically Signed By: Deirdre Hale\.br\Date and Time Signed: 12/12/24 14:53 EDT PAP [id number] 12-12-2024 Gynecological Body Site VAGINA Normal F [facility] Comment on above: Order Comment: had t otal hyst 20 years ago Performed By: #### 1 [id number] #### [facility] [address] [place] [address] Ambulatory Visit Summaryon 0 10-31-2024 Ambulatory Visit Summary Ambulatory Visi t Summary JESUSJOHANTree Parker :1975 Visit Date:10/31/2024 Ambulatory Visit Instructions Your Diagnosis Indwelling Alvares catheter present BMI 35.0-35.9,adult Smoker Your Care Team Attending Physician - Deirdre Hale Primary Care Physician - B[facility] HARKINS, [facility] This Is Your Medications List buprenorphine-naloxone [...] 11:20 AM EDT With: Deirdre Hale Where: [address] [address]- Tuesday 11:40 AM EDT With: Deirdre Hale Where: [address] [address]- Medications What How Much When Instructions Unchanged [...] for choosing us for your care. Normal [facility] Medicine Office/Clini c Noteon 10-31-2024 Family Medicine Office/Clinic Note Family Medicine Office/Clinic Note HPI Staff Morales is a 49 year old female presenting to [facility] care Establish Care: History: Any previous diagnosis: HTN, Insomnia (Pt has indwelling catheter), Anxiety History of seeing any specialist: Urology [place] [address] Ace, Neurosurgeon Dr elsa frederick , Clinic in [facility] for Suboxone When was your last [...] BID, # 60 cap(s), Refills(s) 0, Pharmacy: [facility], 154, cm, 10/31/24 13:29:00 EST, Height/Length Dosing, 83.5, kg, 10/31/24 13:29:00 EST, Weight Dosing 2. depression (F32.A: Depression, unspecified) see above Ordered: duloxetine, 30 mg = 1 cap(s), Oral, BID, # 60 cap(s), Refills(s) 0, Pharmacy: [facility], 154, cm, 10/31/24 13:29:00 EST, Height/Length [...] BID, # 60 cap(s), Refills(s) 0, Pharmacy: [facility], 154, cm, 10/31/24 13:29:00 EST, Height/Length Dosing, 83.5, kg, 10/31/24 13:29:00 EST, Weight Dosing Drug Screen POC [id number] 4. Lower extremity edema (R60.0: Localized edema) pt states the last couple of days her lower legs started swelling again. she took a lasix but then had spasms in bladder. encouraged her to cut the pill in half Ordered: duloxetine, 30 mg = 1 cap(s), Oral, BID, # 60 cap(s), Refills(s) 0, Pharmacy: [facility], 154, cm, 10/31/24 13:29:00 EST, Height/Length [...] BID, # 60 cap(s), Refills(s) 0, Pharmacy: [facility], 154, cm, 10/31/24 13:29:00 EST, Height/Length Dosing, 83.5, kg, 10/31/24 13:29:00 EST, Weight Dosing 6. BMI 35.0-35.9,adult (Z68.35: Body mass index [BMI] 35.0-35.9, adult) BMI education given Ordered: duloxetine, 30 mg = 1 cap(s), Oral, BID, # 60 cap(s), Refills(s) 0, Pharmacy: [facility], 154, cm, 10/31/24 13:29:00 EST, Height/Length Dosing, 83.5, kg, 10/31/24 13:29:00 EST, Weight Dosing 7. Smoker (F17.200: Nicotine dependence, unspecified, uncomplicated) consider not smoking Ordered: duloxetine, 30 mg = 1 cap(s), Oral, BID, # 60 cap(s), Refills(s) 0, Pharmacy: [facility], 154, cm, 10/31/24 13:29:00 EST, Height/Length Dosing, 83.5, kg, 10/31/24 13:29:00 EST, Weight Dosing Orders: diazepam, 5 mg = 1 tab(s), Oral, TID, # 90 tab(s), Refills(s) 0, Pharmacy: [facility], 154, cm, 10/31/24 13:29:00 EST, Height/Length Dosing, 83.5, kg, 10/31/24 13:29:00 EST, Weight Dosing Follow-up No qualifying data available Problem List/Past Medical History Ongoing BMI 32.0-32.9,adult Chronic (more content not included)... Normal [facility] Comment on above: Result Comment: Elec tronically Signed By: Deirdre Hale\.br\Date and Time Signed: 10/31/24 14:46 EST CBC AND AUTO DIFFon 10-01-19 ABSOLUTE BASOPHIL 0.1 X10E9/L Normal 0.0-0.2 [facility] Comment on above: Performed By: #### C BCA, CMP, 3040-3, 74088-9, 54878-2, THYR #### [facility] ([id number]) [address] [place] [address]8852 ABSOLUTE NEUTROPHIL 8.0 X10E9/L High 1.5-6.[address] [facility] Comment on above: Performed By: #### C BCA, CMP, 3040-3, 21439-4, 04650-0, THYR #### [facility] ([id number]) [address] [place] [address] Basophils/100 WBC (Bld) 0.7 % Normal [facility] Comment on above: Performed By: #### C BCA, CMP, 3040-3, 86283-1, 64680-2, THYR #### [facility] ([id number]) [address] [place] [address]198 Eosinophils (Bld) [#/Vol] 0.3 10*3/uL Normal 0.0-0.4 [facility] Comment on above: Performed By: #### C BCA, CMP, 3040-3, 38183-5, 99022-6, THYR #### [facility] ([id number]) [address] [place] [address] 76422 Eosinophils/100 WBC (Bld) 2.7 % Normal [facility] Comment on above: Performed By: #### C BCA, CMP, 3040-3, 10009-5, 90646-1, THYR #### [facility] ([id number]) [address] [place] [address] 46726 Erythrocyte distribution width (RBC) [Ratio] 18.6 % High 11.5-15.0 [facility] Comment on above: Performed By: #### C BCA, CMP, 3040-3, 55920-8, 96636-8, THYR #### [facility] ([id number]) [address] [place] [address] 40744 Hematocrit (Bld) [Volume fraction] 47.5 % High 35-47 [facility] Comment on above: Performed By: #### C BCA, CMP, 3040-3, 71809-9, 56558-0, THYR #### [facility] ([id number]) [address] [place] [address] 03061 Hemoglobin (Bld) [Mass/Vol] 16.6 g/dL High 11.7-15.5 [facility] Comment on above: Performed By: #### C BCA, CMP, 3040-3, 21996-8, 84564-2, THYR #### [facility] ([id number]) [address] [place] [address] 34227 Lymphocytes (Bld) [#/Vol] 3.8 10*3/uL High 1.0-3.5 [facility] Comment on above: Performed By: #### C BCA, CMP, 3040-3, 04807-8, 40388-0, THYR #### [facility] ([id number]) [address] [place] [address] 58222 Lymphocytes/100 WBC (Bld) 29.6 % Normal [facility] Comment on above: Performed By: #### C BCA, CMP, 3040-3, 96090-3, 73267-7, THYR #### [facility] ([id number]) [address] [place] [address] 34325 MCH (RBC) [Entitic mass] 29.4 pg Normal 27-34 [facility] Comment on above: Performed By: #### C BCA, CMP, 3040-3, 38636-4, 72598-9, THYR #### [facility] ([id number]) [address] [place] [address] 64328 MCHC (RBC) [Mass/Vol] 34.9 g/dL Normal 32-36 [facility] Comment on above: Performed By: #### C BCA, CMP, 3040-3, 47027-9, 38224-8, THYR #### [facility] ([id number]) [address] [place] [address] 88266 MCV (RBC) [Entitic vol] 84 fL Normal 80-100 [facility] Comment on above: Performed By: #### C BCA, CMP, 3040-3, 77714-2, 43173-0, THYR #### [facility] ([id number]) [address] [place] [address] 86319 Monocytes (Bld) [#/Vol] 0.6 10*3/uL Normal 0-0.9 [facility] Comment on above: Performed By: #### C BCA, CMP, 3040-3, 17299-5, 77581-8, THYR #### [facility] ([id number]) [address] [place] [address] 83466 Monocytes/100 WBC (Bld) 4.6 % Normal [facility] Comment on above: Performed By: #### C BCA, CMP, 3040-3, 39645-5, 29805-1, THYR #### [facility] ([id number]) [address] [place] [address] 01693 Neutrophils/100 WBC (Bld) 62.4 % Normal [facility] Comment on above: Performed By: #### C BCA, CMP, 3040-3, 61824-4, 33163-5, THYR #### [facility] ([id number]) [address] [place] [address] 83714 Platelet mean volume (Bld) [Entitic vol] 8.2 fL Normal 7-12 [facility] Comment on above: Performed By: #### C BCA, CMP, 3040-3, 65011-1, 20992-5, THYR #### [facility] ([id number]) [address] [place] [address] [place] [address] Platelets (Bld) [#/Vol] 296 10*3/uL Normal 150-450 [facility] Comment on above: Performed By: #### C ALONZO, [facility], 3040-3, 95056-1, 45940-9, THYR #### [facility] ([id number]) [address] [place] [address] 71089 RBC COUNT 5.64 X10E12/L High 3.80-5.20 [facility] Comment on above: Performed By: #### C ALONZO, [facility], 3040-3, 68218-7, 56362-7, THYR #### [facility] ([id number]) [address] [place] [address] 85076 WBC (Bld) [#/Vol] 12.9 10*3/uL High 4.0-11.[address] [facility] Comment on above: Performed By: #### C ALONZO, [facility], 3040-3, 65532-8, 00624-2, THYR #### [facility] ([id number]) [address] [place] [address] 63963 CBC auto differentialon 09-06 Basophils (Bld) [#/Vol] 0.1 10*3/uL [facility] Basophils/100 WBC (Bld) 0.7 % [facility] Eosinophils (Bld) [#/Vol] 0.3 10*3/uL [...] Interpretation and review of laboratory results Abnormal [facility] Lymphocytes (Bld) [#/Vol] 3.8 10*3/uL High [facility] Lymphocytes/100 WBC (Bld) 29.6 % [facility] MCH (RBC) [Entitic mass] 29.4 pg 27 - 34 pg [facility] MCHC (RBC) [Mass/Vol] 34.9 g/dL 32 - 3 6 g/dL [facility] MCV (RBC) [Entitic vol] 84 fL 80 - 100 fL [facility] Monocytes (Bld) [#/Vol] 0.6 10*3/uL [facility] Monocytes/100 WBC (Bld) 4.6 % [facility] Neutrophils (Bld) [#/Vol] 8 10*3/uL High [facility] Neutrophils/100 WBC (Bld) 62.4 % [facility] Platelet mean volume (Bld) [Entitic vol] 8.2 fL 7 - 12 fL [facility] Platelets (Bld) [#/Vol] 296 10*3/uL [facility] RBC (Bld) [#/Vol] 5.64 10*6/uL High [facility] WBC corrected for nucl RBC Auto (Bld) [#/Vol] 12.9 High [facility] COMPREHENSIVE METABOLIC PANE Geoff 10-01-2024 Albumin [Mass/Vol] 5.0 g/dL Normal 3.2-5.3 [place] Comment on above: Performed By: #### C ALONZO CMP, 3040-3, 72755-9, 22370-1, THYR #### [facility] ([id number]) [address] [place] [address] 05838 ALP [Catalytic activity/Vol] 173 U/L High 39-130 [facility] Comment on above: Performed By: #### C BCA, CMP, 3040-3, 68052-1, 82688-0, THYR #### [facility] ([id number]) [address] [place] [address] 75217 ALT [Catalytic activity/Vol] 21 U/L Normal 0-31 [facility] Comment on above: Performed By: #### C BCA, CMP, 3040-3, 14864-7, 41043-3, THYR #### [facility] ([id number]) [address] [place] [address] 56617 Anion gap [Moles/Vol] 10 mmol/L Normal 5-15 [facility] Comment on above: Performed By: #### C BCA, CMP, 3040-3, 55961-5, 89191-2, THYR #### [facility] ([id number]) [address] [place] [address] 34574 AST [Catalytic activity/Vol] 38 U/L Normal 0-41 [facility] Comment on above: Performed By: #### C BCA, CMP, 3040-3, 70745-6, 84853-9, THYR #### [facility] ([id number]) [address] [place] [address] 50110 Bilirubin [Mass/Vol] 1.2 mg/dL Normal 0.3-1.[address] [facility] Comment on above: Performed By: #### C BCA, CMP, 3040-3, 41936-5, 73643-7, THYR #### [facility] ([id number]) [address] [place] [address] 74766 Calcium [Mass/Vol] 9.8 mg/dL Normal 8.5-10.5 [place] Comment on above: Performed By: #### C BCA, CMP, 3040-3, 00530-2, 26534-8, THYR #### [facility] ([id number]) [address] [place] [address] 67396 Chloride [Moles/Vol] 100 mmol/L Normal 98-[address] [facility] Comment on above: Performed By: #### C BCA, CMP, 3040-3, 21258-2, 69559-0, THYR #### [facility] ([id number]) [address] [place] [address] CO2 [Moles/Vol] 26 mmol/L Normal 22-32 [facility] Comment on above: Performed By: #### C BCA, CMP, 3040-3, 11145-6, 00996-0, THYR #### [facility] ([id number]) [address] [place] [address] 25250 Creatinine [Mass/Vol] 0.81 mg/dL Normal 0.40-1.00 [facility] Comment on above: Result Comment: METH OD TRACEABLE TO IDMS STANDARD Performed By: #### C ALONZO, DARIUS, 0-3, , 95381-1, THYR #### [facility] ([id number]) [address] [place] [address] 97490 GFR/1.73 sq M.predicted among non-blacks MDRD (S/P/Bld) [Vol rate/Area] 88 mL/min/{1.73_m2} Normal >59 [facility] Comment on above: Result Comment: Reported eGFR is based on the CKD-EPI 2020 equation that does not use a race coefficient. Performed By: #### C ALONZO, CMP, 3040-3, 26716-4, 61638-5, THYR #### [facility] ([id number]) [address] [place] [address] 82052 Glucose [Mass/Vol] 103 mg/dL High 65-99 [place] Comment on above: Performed By: #### C BCA, CMP, 3040-3, 45690-3, 44916-9, THYR #### [facility] ([id number]) [address] [place] [address] 30193 Potassium [Moles/Vol] 3.4 mmol/L Low 3.5-5.0 [facility] Comment on above: Performed By: #### C BCA, CMP, 3040-3, 49328-1, 51902-6, THYR #### [facility] ([id number]) [address] [place] [address] 70575 Protein [Mass/Vol] 9.3 g/dL High 6.0-8.0 [place] Comment on above: Performed By: #### C BCA, CMP, 3040-3, 41320-7, 99421-2, THYR #### [facility] ([id number]) [address] [place] [address] 38480 Sodium [Moles/Vol] 136 mmol/L Normal 134-146 [place] Comment on above: Performed By: #### C BCA, CMP, 3040-3, 57461-1, 05732-4, THYR #### [facility] ([id number]) [address] [place] [address] 81649 Urea nitrogen [Mass/Vol] 8 mg/dL Normal 5-23 [facility] Comment on above: Performed By: #### C BCA, CMP, 3040-3, 66974-4, 72638-5, THYR #### [facility] ([id number]) [address] [place] [address] LUMBAR SPINE WO CONTon CT LUMBAR [...] Finney MD on 10/01/2024 1:05 AM Normal [facility] CT Lumbar spine WO contrasto n 10-01-2024 [...] Balbir Finney MD on 10/01/2024 1:05 AM [email or web address] Rad[facility] Study observation (narrative) [facility] Lumbar [facility] WO contrastO rdered By: Balbir Finney on 10-01-2024 [email or web address] Work Phone: CT THORACIC SPINE WO CONTon 10-01-2024 CT THORACIC SPINE WO CONT CT THORACIC SPINE WO CONT *ADDENDUM*ADDENDUM: Fusion of the thoracolumbar spine is seen extending to S1 on the dedicated CT of the lumbar spine also performed on 10/01/2024. Impression: See above. Finalized by Balbir Finney MD on 10/01/2024 1:05 AM Normal [facility] CT Thoracic spine WO contras ton 10-01-2024 Addendum by Balbir Finney MD on 10/01/2024 1:05 AM EST *ADDENDUM*ADDENDUM: Fusion of the thoracolumbar spine is seen extending to S1 on the dedicated CT of the lumbar spine also performed on 10/01/2024. Impression: See above. Finalized by Balbir Finney MD on 10/01/2024 1:05 AM [email or web address] EXAM: CT THORACIC SP INE WITHOUT CONTRAST [...] Balbir Finney MD on 10/01/2024 1:01 AM [facility] Radiology Study observation (narrative) [facility] Comprehensive metabolic pane geoff 10-01-2024 Albumin [Mass/Vol] 5 g/dL 3.2 - 5.3 g/dL [facility] ALP [Catalytic activity/Vol] 173 U/L High 39 - 130 U/L [facility] ALT No additional P-5'-P [Catalytic activity/Vol] 21 U/L 0 - 31 U/L [facility] Anion gap [Moles/Vol] 10 mmol/L 5 - 15 mmol/L [facility] AST [Catalytic activity/Vol] 38 U/L 0 - 41 U/L [facility] Bilirubin [Mass/Vol] 1.2 mg/dL 0.3 - 1 .2 mg/dL [facility] Calcium [Mass/Vol] 9.8 mg/dL 8.5 - 10. 5 mg/dL [facility] Chloride [Moles/Vol] 100 mmol/L 98 - 10 9 mmol/L [facility] CO2 [Moles/Vol] 26 mmol/L 22 - 32 mmol/L [facility] Creatinine [Mass/Vol] 0.81 mg/dL 0.40 - 1.00 mg/dL [facility] Comment on above: [facility] STAND[facility] eGFR (CKD-EPI)non-race dependent 88 - PINF [facility] Comment on above: Reported eGFR is based on the CKD-EPI 2020 equation that does not use a race coefficient. Glucose [Mass/Vol] 103 mg/dL High 65 - 99 mg/dL [facility] Interpretation and review of laboratory results Abnormal [facility] Potassium [Moles/Vol] 3.4 mmol/L Low 3.5 - 5.0 mmol/L [facility] Protein [Mass/Vol] 9.3 g/dL High 6.0 - 8.0 g/dL [facility] Sodium [Moles/Vol] 136 mmol/L 134 - 146 mmol/L [facility] Urea nitrogen [Mass/Vol] 8 mg/dL 5 - 23 mg/dL [facility] LIPASEon 10-01-2024 Lipase [Catalytic activity/Vol] 30 U/L Normal 17-40 [facility] Comment on above: Performed By: #### C ALONZO, CMP, 3040-3, 84313-9, 32376-7, THYR #### [facility] ([id number]) [address] [place] [address], [place] [address] Laboratory - Microbiology an d Antimicrobial susceptibilityon 10-01-2024 FLUAV+FLUBV RNA ADRIÁN+probe Ql (Unsp spec) Negative Negative^N egative [facility] Lipaseon 10-01-2024 Lipase [Catalytic activity/Vol] 30 U/L 17 - 40 U/L [facility] Lipase [Catalytic activity/V ol]on 10-01-2024 [facility] MAGNESIUMon 10-01-2024 Magnesium [Mass/Vol] 2.0 mg/dL Normal 1.8-2.[address] [facility] Comment on above: Performed By: #### C BCA, CMP, 3040-3, 92072-8, 95231-8, THYR #### [facility] ([id number]) [address] [facility] [place] [address] Magnesiumon 10-01-2024 Magnesium [Mass/Vol] 2 mg/dL 1.8 - 2 .6 mg/dL [facility] No Panel Informationon 10-01 [facility] SARS/FLU A+B/RSV by NAAT/Mol ecularon 10-01-2024 [...] operators who are performing tests using either [employer] or Rayn systems and is limited to laboratories that [...] repeat. Fact Sheet for Healthcare Providers: https://www.fda.gov/media /457205/download Fact Sheet for Patients: https://www.fda.gov/media /342550/download Normal [facility] SARS/FLU A+B/RSV by NAAT/Mol ecular (M4RT Collection Tube)on 10-01-2024 RSV RNA ADRIÁN+probe Nom (Unsp spec) Negative Negative^N egative [facility] SARS-CoV-2 (COVID-19) RNA ADRIÁN+probe Ql (Resp) Not detected Not Detected^N ot Detected [facility] Comment on above: NOTE The Xpert [...] operators who are performing tests using either [employer] or Rayn systems and is limited to laboratories that [...] specimen repeat. Fact Sheet for Healthcare Providers: https://www.fda.gov/media/714463/download Fact Sheet for Patients: https://www.fda.gov/media/340974/download [facility] THYROID PROFILEon 10-01-2024 Free T4 [Mass/Vol] 1.14 ng/dL Normal 0.61-1.60 [place] Comment on above: Performed By: #### C BCA, CMP, 3040-3, 95404-5, 21184-1, THYR #### [facility] ([id number]) [address] [place] [address] 97691 TSH 3.02 uIU/mL Normal 0.49-4.67 [facility] Comment on above: Performed By: #### C ALONZO, CMP, 3040-3, 61190-0, 51275-7, THYR #### [facility] ([id number]) [address] [place], [place] [address] Thyroid profile includes TSH FT4on 10-01-2024 Free T4 [Mass/Vol] 1.14 ng/dL 0.61 - 1.60 ng/dL [facility] TSH Qn 3.02 m[IU]/L [facility] Troponin I, High Sensitivity on 10-01-2024 Troponin I.cardiac High sensitivity method [Mass/Vol] ng/L NINF - 16 ng/L [facility] Troponin I, High Sensitivity 1 Houron 10-01-2024 Troponin I.cardiac High sensitivity method [Mass/Vol] ng/L NINF - 16 ng/L [facility] Troponin I.cardiac High sens itivity method [Mass/Vol]on 10-01-2024 [facility] 1 HOUR TROP I, HIGH SENSITIVITY <2 Normal <16 [facility] Comment on above: Performed By: #### C BCA, CMP, 3040-3, 93509-5, 43566-7, THYR #### [facility] ([id number]) [address] [place] [address] 40229 [facility] TROPONIN I, HIGH SENSITIVITY <2 Normal <16 [facility] Comment on above: Performed By: #### C BCA, CMP, 3040-3, 67882-7, 42460-1, THYR #### [facility] ([id number]) [address] [place] [address] 53448 URINALYSISon 10-01-2024 Bilirubin Ql (U) Negative Normal NEG [facility] Comment on above: Performed By: #### C BCA, CMP, 3040-3, 75615-3, 93256-2, THYR #### [facility] ([id number]) [address] [place] [address] [place] [address] BLOOD/HGB Trace Abnormal NEG [facility] Comment on above: Performed By: #### C BCA, CMP, 3040-3, 56781-7, 18524-9, THYR #### [facility] ([id number]) [address] [place] [address] [place] [address] Color (U) YELLOW Normal YELLOW [facility] Comment on above: Performed By: #### C BCA, CMP, 3040-3, 14177-4, 52408-3, THYR #### [facility] ([id number]) [address] [place] [address] [place] [address] Glucose Ql (U) Negative Normal NEG [facility] Comment on above: Performed By: #### C BCA, CMP, 3040-3, 89633-2, 77375-4, THYR #### [facility] ([id number]) [address] [place] [address], [place] [address] Ketones Ql (U) Negative Normal NEG [facility] Comment on above: Performed By: #### C BCA, CMP, 3040-3, 51067-4, 55890-7, THYR #### [facility] ([id number]) [address] [place] [address] 54582 Leukocyte esterase Test strip Ql (U) SMALL Abnormal NEG [facility] Comment on above: Performed By: #### C BCA, CMP, 3040-3, 27819-0, 92639-8, THYR #### [facility] ([id number]) [address] [place] [address] Nitrite Ql (U) Negative Normal NEG [facility] Comment on above: Performed By: #### C BCA, CMP, 3040-3, 16808-3, 60932-2, THYR #### [facility] ([id number]) [address] [place] [address]76 pH (U) 6.0 [pH] Normal 5.0-8.5 [facility] Comment on above: Performed By: #### C BCA, CMP, 3040-3, 83551-1, 43364-8, THYR #### [facility] ([id number]) [address] [place] [address]12 Protein Ql (U) Negative Normal NEG [facility] Comment on above: Performed By: #### C BCA, CMP, 3040-3, 63342-0, 56914-5, THYR #### [facility] ([id number]) [address] [place] [address]1024 R.B.CELLS 1 /hpf Normal 0-5 [facility] Comment on above: Performed By: #### C BCA, CMP, 3040-3, 68958-9, 61592-2, THYR #### [facility] ([id number]) [address] [place] [address] 09457 Specific gravity (U) [Rel density] <1.005 Normal 1.003-1.[address] [place] [address] Comment on above: Performed By: #### C BCA, CMP, 3040-3, 83478-7, 51401-5, THYR #### [facility] ([id number]) [address] [place] [address] 53552 SQUAMOUS EPITHELIUM 1 /hpf Normal 0-[address] [facility] Comment on above: Performed By: #### C BCA, CMP, 3040-3, 04765-7, 24406-9, THYR #### [facility] ([id number]) [address] [place] [address] 38551 TURBIDITY CLEAR Normal CLEAR [facility] Comment on above: Performed By: #### C BCA, CMP, 3040-3, 93699-0, 77392-7, THYR #### [facility] ([id number]) [address] [place] [address] 92948 Urobilinogen Qn (U) 0.2 {Tesha'U}/dL Normal <1.1 [facility] Comment on above: Performed By: #### C BCA, CMP, 3040-3, 50817-9, 23768-6, THYR #### [facility] ([id number]) [address] [place] [address] 74476 W.B.CELLS 2 /hpf Normal 0-5 [facility] Comment on above: Performed By: #### C BCA, CMP, 3040-3, 58249-2, 72004-7, THYR #### [facility] ([id number]) [address] [place] [address] 35579 URINE CULTUREon 10-01-2024 Bacteria identified Cx Nom (U) CULTURE RESULTS 10-50,000 ORGANISMS/mL NORMAL UROGENITAL ROSANNA Normal [facility] Comment on above: Performed By: #### C BCA, CMP, 3040-3, 83291-7, 47372-3, THYR #### [facility] ([id number]) [address] [place] [address] 46405 Urinalysison 10-01-2024 Bilirubin Ql (U) Negative Negative^N egative [facility] Color (U) YELLOW YELLOW^YEL LOW [facility] Epithelial cells Auto (Urine sed) [#/Area] 1 [facility] Glucose (U) [Mass/Vol] Negative Negat magda^N egative mg/dL [facility] Hemoglobin Auto test strip Ql (U) Trace Abnormal Negative^N egative [facility] Interpretation and review of laboratory results Abnormal [facility] Ketones (U) [Mass/Vol] Negative Negat magda^N egative mg/dL [facility] Leukocyte esterase Auto test strip Ql (U) SMALL Abnormal Negative^N egative [facility] Nitrite Auto test strip Ql (U) Negative Negative^N egative [facility] pH (U) 6 [pH] 5.0 - 8.5 [facility] Protein (U) [Mass/Vol] Negative Negat magda^N egative mg/dL [facility] RBC Auto (Urine sed) [#/Area] 1 [facility] Specific gravity Refractometry automated (U) [Rel density] 1.003 - 1.035 [facility] Turbidity Ql (U) CLEAR CLEAR^GUERO R [facility] Urobilinogen Qn (U) 0.2 NINF [facility] WBC Auto (Urine sed) [#/Area] 2 [facility] XR CHEST 1 VWon 10-01-2024 XR CHEST [...] Velazquez MD on 10/01/2024 1:04 AM Normal [facility] XR Chest Single viewon 10-01 HISTORY: Chest pain COMPARISON: Chest x-ray 10/25/2014 FINDINGS: AP semiupright view of the chest was performed. Cardiac silhouette is within normal limits. No significant airspace consolidation or vascular congestion. No pleural effusion or pneumothorax. Intact cervical and thoracic fusion hardware. IMPRESSION: * No acute abnormality. Finalized by Sanchez Velazquez MD on 10/01/2024 1:04 AM [facility] Sanchez Velazquez M D - 10/01/2024 HISTORY: Chest pain COMPARISON: Chest x-ray 10/25/2014 FINDINGS: AP semiupright view of the chest was performed. Cardiac silhouette is within normal limits. No significant airspace consolidation or vascular congestion. No pleural effusion or pneumothorax. Intact cervical and thoracic fusion hardware. IMPRESSION: * No acute abnormality. Finalized by Sanchez Velazquez MD on 10/01/2024 1:04 AM [employer] [facility] Study observation (narrative) [employer] XR Chest Single viewOrdered By: Sanchez Velazquez on 10-01-2024 [employer] Work Phone: Urine Cultureon 09-01-2024 Bacteria identified Cx Nom (U) No Growth 2 Days PERFORMED BY: [place] [address] PATHOLOGIST MEDICAL VIDEOGRAPHER ISMAEL ELIZABETH M.D. Normal [facility] Comment on above: Performed By: #### C UU #### [address] COMPLIANCE DRUG ANALYSIS, UR on 05-22-2024 SUMMARY REPORT (SUMMARY) FINAL . [facility] Comment on above: ======= TOXASSURE COMP [...] consultation, please call . ======= Performed at: [facility] [address] [id number] [employer]: Neli Singh, Phone: [phone] Specimen Comment: ToxAssure, Tox[employer]ure FLEX or MAT drug testin Specimen Comment: -Technical component - Data analysis performed at Specimen Comment: [facility], [address] [place] [address] Specimen Comment: [id number]. [phone] [employer] James Barrera MD. [facility] [...] Healthcare Tricyclic antidepressants [Mass/Vol] N [facility] CULTURE URINEon 01-16-2023 CULTURE URINE Isolate [...] F Nitrofurantoin <=16 S F Normal [facility] Comment on above: Performed By: #### U MICRO, ERUR #### [facility] [address] [place] [address] Dr. Alfredo Lizama CBC AUTO DIFFon 01-13-2023 BASO # 0.1 103/ul Normal 0.0-0.1 [facility] Comment on above: Performed By: #### U MICRO, ERUR #### [facility] [address] [place] [address] Dr. Alfredo Lizama Basophils/100 WBC (Bld) 0.7 % Normal 0.2-2.0 [facility] Comment on above: Performed By: #### U MICRO, ERUR #### [facility] [address] [place] [address] Dr. Alfredo Lizama EO # 0.3 103/ul Normal 0.0-0.7 [facility] Comment on above: Performed By: #### U MICRO, ERUR #### [facility] [address] [place] [address] Dr. Alfredo Lizama Eosinophils/100 WBC (Bld) 3.2 % Normal 0.9-7.0 [facility] Comment on above: Performed By: #### U MICRO, ERUR #### [facility] [address] [place] [address] Dr. Alfredo Lizama Erythrocyte distribution width (RBC) [Ratio] 13.0 % Normal 11.0-15.0 [facility] Comment on above: Performed By: #### U MICRO, ERUR #### [facility] [address] [place] [address] Dr. Alfredo Lizama Hematocrit (Bld) [Volume fraction] 43.2 % Normal 36.0-48.0 [facility] Comment on above: Performed By: #### U MICRO, ERUR #### [facility] [address] [place] [address] Dr. Alfredo Lizama Hemoglobin (Bld) [Mass/Vol] 14.1 g/dL Normal 12.0-16.0 [facility] Comment on above: Performed By: #### U MICRO, ERUR #### [facility] [address] [place] [address] Dr. Alfredo Lizama IG # 0.02 10e3/ul Normal 0.00-0.03 [facility] Comment on above: Performed By: #### U MICRO, ERUR #### [facility] [address] [place] [address] Dr. Alfredo Lizama IG % 0.2 % Normal 0.0-0.[address] [facility] Comment on above: Performed By: #### U MICRO, ERUR #### [facility] [address] [address] [address] Alfredo Lizama LYMPH # 3.0 103/ul Normal 1.2-3.8 [facility] Comment on above: Performed By: #### U MICRO, ERUR #### [facility] [address] [place] [address] Dr. Alfredo Lizama Lymphocytes/100 WBC (Bld) 35.6 % Normal 20.5-60.0 [facility] Comment on above: Performed By: #### U MICRO, ERUR #### [facility] [address] [place] [address] Dr. Alfredo Lizama MANUAL DIFF REQ NO Normal [facility] Comment on above: Performed By: #### U MICRO, ERUR #### [facility] [address] [place] [address] Dr. Alfredo Lizama MCH (RBC) [Entitic mass] 29.4 pg Normal 26.7-34.0 [facility] Comment on above: Performed By: #### U MICRO, ERUR #### [facility] [address] [place] [address] Dr. Alfredo Lizama MCHC (RBC) [Mass/Vol] 32.6 g/dL Normal 29.9-35.2 [facility] Comment on above: Performed By: #### U MICRO, ERUR #### [facility] [address] [place] [address] Dr. Alfredo Lizama MCV (RBC) [Entitic vol] 90.0 fL Normal 81.0-99.0 [facility] Comment on above: Performed By: #### U MICRO, ERUR #### [facility] [address] [place] [address] Dr. Alfredo Lizama MONO # 0.4 103/ul Normal 0.3-0.8 [facility] Comment on above: Performed By: #### U MICRO, ERUR #### [facility] [address] [place] [address] Dr. Alfredo Lizama Monocytes/100 WBC (Bld) 4.8 % Normal 1.7-12.0 [facility] Comment on above: Performed By: #### U MICRO, ERUR #### [facility] [address] [address] [address] Alfredo Lizama NEUT # 4.7 103/ul Normal 1.4-6.5 [facility] Comment on above: Performed By: #### U MICRO, ERUR #### [facility] [address] [address] [address] Alfredo Lizama Neutrophils/100 WBC (Bld) 55.5 % Normal 43.0-75.0 [facility] Comment on above: Performed By: #### U MICRO, ERUR #### [facility] [address] [address] [address] Alfredo Lizama Platelet mean volume (Bld) [Entitic vol] 9.5 fL Normal 9.5-13.5 [facility] Comment on above: Performed By: #### U MICRO, ERUR #### [facility] [address] [address] [address] Alfredo Lizama PLT 267 103/ul Normal 150-450 [facility] Comment on above: Performed By: #### U MICRO, ERUR #### [facility] [address] [address] [address] Alfredo Lizama RBC 4.80 106/ul Normal 4.20-5.40 [facility] Comment on above: Performed By: #### U MICRO, ERUR #### [facility] [address] [address] [address] Alfredo Lizama WBC 8.5 103/ul Normal 4.0-11.0 [facility] Comment on above: Performed By: #### U MICRO, ERUR #### [facility] [address] [address] [address] Alfredo Lizama ER URINE PROFILEon 3 Bilirubin Ql (U) Negative Normal NEGATIVE [facility] Comment on above: Performed By: #### E RUR UMMISAELRO #### [facility] [address] [address] [address] Alfredo Lizama Clarity (U) CLOUDY Abnormal CLEAR [facility] Comment on above: Performed By: #### Jacque SETRADA UMICRO #### [facility] [address] [place] [address] Dr. Alfredo Lizama Color (U) YELLOW Normal YELLOW [facility] Comment on above: Performed By: #### Jacque ESTRADA UMICRO #### [facility] [address] [place] [address] Dr. Alfredo Lizama ERUAHD A micrscopic examina tion will be performed if indicated. Normal [facility] Comment on above: Performed By: #### Jacque ESTRADA UMICRO #### [facility] [address] [place] [address] Dr. Alfredo Lizama Glucose Ql (U) Negative Normal NEGATIVE [facility] Comment on above: Performed By: #### Jacque ESTRADA UMICRO #### [facility] [address] [place] [address] Dr. Alfredo Lizama Hemoglobin Ql (U) MODERATE Abnormal NEGATIVE [facility] Comment on above: Performed By: #### Jacque ESTRADA UMICRO #### [facility] [address] [place] [address] Dr. Alfredo Lizama Ketones Ql (U) TRACE Abnormal NEGATIVE [facility] Comment on above: Performed By: #### Jacque ESTRADA UMICRO #### [facility] [address] [place] [address] Dr. Alfredo Lizama LEUKOCYTES SMALL Abnormal NEGATIVE [facility] Comment on above: Performed By: #### Jacque ESTRADA UMICRO #### [facility] [address] [place] [address] Dr. Alfredo Lizama Nitrite Ql (U) Negative Normal NEGATIVE [facility] Comment on above: Performed By: #### Jacque ESTARDA UMICRO #### [facility] [address] [place] [address] Dr. Alfredo Lizama pH (U) 8.0 [pH] Normal 5-[address] [facility] Comment on above: Performed By: #### Jacque ESTRADA UMICRO #### [facility] [address] [place] [address] Dr. Alfredo Lizama Protein (U) [Mass/Vol] 100 mg/dL Abnormal NEGAT MAGDA/ TRACE [facility] Comment on above: Performed By: #### LINDA CHAVES #### [facility] [address] [place] [address] Dr. Alfredo Lizama SPEC GRAVITY 1.015 Normal 1.005-<=1. 025 [facility] Comment on above: Performed By: #### FER CHAVESICRO #### [facility] [address] [place] [address] Dr. Alfredo Lizama UR MICRO IND INDICATED Normal [facility] Comment on above: Performed By: #### LINDA CHAVES #### [facility] [address] [place] [address] Dr. Alfredo Lizama Urobilinogen Qn (U) 1.0 {Tesha'U}/dL Normal 0.2 - 1. 0 [facility] Comment on above: Performed By: #### CHINMAY CHAVESRO #### [facility] [address] [place] [address] Dr. Alfredo Lizama PROF CHEM 8 (BAS METB)on Anion gap [Moles/Vol] 8.4 mmol/L Normal [facility] Comment on above: Performed By: #### U MICRO, ERUR #### [facility] [address] [place] [address] Dr. Alfredo Lizama Calcium [Mass/Vol] 8.7 mg/dL Normal 8.5-10.[address] [facility] Comment on above: Performed By: #### U MICRO, ERUR #### [facility] [address] [place] [address] Dr. Alfredo Lizama Chloride [Moles/Vol] 107 mmol/L Normal 98-[address] [facility] Comment on above: Performed By: #### U MICRO, ERUR #### [facility] [address] [place] [address] Dr. Alfredo Lizama CO2 [Moles/Vol] 28.3 mmol/L Normal 21.0-32.[address] [facility] Comment on above: Performed By: #### U MICRO, ERUR #### [facility] [address] [address] [address] Alfredo Lizama Creatinine [Mass/Vol] 0.70 mg/dL Normal 0.55-1.02 [facility] Comment on above: Performed By: #### U MICRO, ERUR #### [facility] [address] [address] [address] Alfredo Lizama EGFR-AF WALLISIAN >60 Normal >=[address] [facility] Comment on above: Performed By: #### U MICRO, ERUR #### [facility] [address] [address] [address] Alfredo Lizama EGFR-NON AF WALLISIAN >60 Normal >=[address] [facility] Comment on above: Performed By: #### U MICRO, ERUR #### [facility] [address] [address] [address] Alfredo Lizama Glucose [Mass/Vol] 97 mg/dL Normal 74-[address] [facility] Comment on above: Performed By: #### U MICRO, ERUR #### [facility] [address] [address] [address] Alfredo Lizama Potassium [Moles/Vol] 3.7 mmol/L Normal 3.5-5.[address] [facility] Comment on above: Performed By: #### U MICRO, ERUR #### [facility] [address] [address] [address] Alfredo Lizama Sodium [Moles/Vol] 140 mmol/L Normal 136-[address] [facility] Comment on above: Performed By: #### U MICRO, ERUR #### [facility] [address] [address] [address] Alfredo Lizama Urea nitrogen [Mass/Vol] 7.0 mg/dL Normal 7.0-18.[address] [facility] Comment on above: Performed By: #### U MICRO, ERUR #### [facility] [address] [address] [address] Alfredo Lizama Urea nitrogen/Creatinine [Mass ratio] 10.0 mg/mg Normal [facility] Comment on above: Performed By: #### U MICRO, ERUR #### [facility] [address] [place] [address] Dr. Alfredo Lizama URINE MICROSCOPIC ONLYon AMORPHOUS CRYSTALS FEW Normal [facility] Comment on above: Performed By: #### E RUR UMICRO #### [facility] [address] [place] [address] Dr. Alfredo Lizama BACTERIA LARGE Abnormal NONE SEEN [facility] Comment on above: Performed By: #### E RUR, UMICRO #### [facility] [address] [place] [address] Dr. Alfredo Lizama Bacteria identified Cx Nom (U) INDICATED Normal [facility] Comment on above: Performed By: #### E RUR UMICRO #### [facility] [address] [place] [address] Dr. Alfredo Lizama CAST NONE SEEN Normal NONE SEEN [facility] Comment on above: Performed By: #### E RUR UMICRO #### [facility] [address] [place] [address] Dr. Alfredo Lizama Crystals LM Nom (Urine sed) SEEN Abnormal NONE SEEN [facility] Comment on above: Performed By: #### E LONAR UMICRO #### [facility] [address] [place] [address] Dr. Alfredo Lizama Epithelial cells LM Ql (Urine sed) RARE Normal NONE SEEN /RARE [facility] Comment on above: Performed By: #### E LONAR UMICRO #### [facility] [address] [place] [address] Dr. Alfredo Lizama MUCOUS NONE SEEN Normal NONE SEEN [facility] Comment on above: Performed By: #### E RUR, UMICRO #### [facility] [address] [place] [address] Dr. Alfredo Lizama RBC 2-5 Abnormal 0-[address] [facility] Comment on above: Performed By: #### E RUR, UMICRO #### [facility] [address] [place] [address] Dr. Alfredo Lizama TRIPLE PHOS CRYSTALS FEW Normal [facility] Comment on above: Performed By: #### E RUR, UMICRO #### [facility] [address] [place] [address] Dr. Alfredo Lizama WBC 75-100 Abnormal NONE SEEN [facility] Comment on above: Performed By: #### E LINDA ESTRADA #### [facility] [address] [place] [address] Dr. Alfredo Lizama CULTURE URINEon 12-25-2022 CULTURE [...] F Trimethoprim/Sulfamethoxa zole <=20 S F Normal [facility] Comment on above: Performed By: #### U MICRO, ERUR #### [facility] [address] [place] [address] Dr. Alfredo Lizama AMYLASEon 11-09-2022 Amylase [Catalytic activity/Vol] 14 U/L Critically low 25-115 [facility] Comment on above: Performed By: #### U MICRO, ERUR #### [facility] [address] [place] [address] Dr. Alfredo Lizama CBC AUTO DIFFon 11-09-2022 BASO # 0.1 103/ul Normal 0.0-0.1 [facility] Comment on above: Performed By: #### U MICRO, ERUR #### [facility] [address] [place] [address] Dr. Alfredo Lizama Basophils/100 WBC (Bld) 0.8 % Normal 0.2-2.0 [facility] Comment on above: Performed By: #### U MICRO, ERUR #### [facility] [address] [place] [address] Dr. Alfredo Lizama EO # 0.2 103/ul Normal 0.0-0.[address] [facility] Comment on above: Performed By: #### U MICRO, ERUR #### [facility] [address] [place] [address] Dr. Alfredo Lizama Eosinophils/100 WBC (Bld) 2.5 % Normal 0.9-7.[address] [facility] Comment on above: Performed By: #### U MICRO, ERUR #### [facility] [address] [place] [address] Dr. Alfredo Lizama Erythrocyte distribution width (RBC) [Ratio] 12.7 % Normal 11.0-15.[address] [facility] Comment on above: Performed By: #### U MICRO, ERUR #### [facility] [address] [place] [address] Dr. Alfredo Lizama Hematocrit (Bld) [Volume fraction] 46.3 % Normal 36.0-48.[address] [facility] Comment on above: Performed By: #### U MICRO, ERUR #### [facility] [address] [place] [address] Dr. Alfredo Lizama Hemoglobin (Bld) [Mass/Vol] 15.9 g/dL Normal 12.0-16.[address] [facility] Comment on above: Performed By: #### U MICRO, ERUR #### [facility] [address] [place] [address] Dr. Alfredo Lizama IG # 0.02 10e3/ul Normal 0.00-0.[address] [facility] Comment on above: Performed By: #### U MICRO, ERUR #### [facility] [address] [place] [address] Dr. Alfredo Lizama IG % 0.2 % Normal 0.0-0.[address] [facility] Comment on above: Performed By: #### U MICRO, ERUR #### [facility] [address] [place] [address] Dr. Alfredo Lizama LYMPH # 2.6 103/ul Normal 1.2-3.[address] [facility] Comment on above: Performed By: #### U MICRO, ERUR #### [facility] [address] [place] [address] Dr. Alfredo Lizama Lymphocytes/100 WBC (Bld) 31.3 % Normal 20.5-60.0 [facility] Comment on above: Performed By: #### U MICRO, ERUR #### [facility] [address] [place] [address] Dr. Alfredo Lizama MANUAL DIFF REQ NO Normal [facility] Comment on above: Performed By: #### U MICRO, ERUR #### [facility] [address] [place] [address] Dr. Alfredo Lizama MCH (RBC) [Entitic mass] 29.3 pg Normal 26.7-34.0 [facility] Comment on above: Performed By: #### U MICRO, ERUR #### [facility] [address] [place] [address] Dr. Alfredo Lizama MCHC (RBC) [Mass/Vol] 34.3 g/dL Normal 29.9-35.2 [facility] Comment on above: Performed By: #### U MICRO, ERUR #### [facility] [address] [place] [address] Dr. Alfredo Lizama MCV (RBC) [Entitic vol] 85.4 fL Normal 81.0-99.0 [facility] Comment on above: Performed By: #### U MICRO, ERUR #### [facility] [address] [place] [address] Dr. Alfredo Lizama MONO # 0.6 103/ul Normal 0.3-0.8 [facility] Comment on above: Performed By: #### U MICRO, ERUR #### [facility] [address] [place] [address] Dr. Alfredo Lizama Monocytes/100 WBC (Bld) 6.6 % Normal 1.7-12.0 [facility] Comment on above: Performed By: #### U MICRO, ERUR #### [facility] [address] [place] [address] Dr. Alfredo Lizama NEUT # 4.9 103/ul Normal 1.4-6.5 [facility] Comment on above: Performed By: #### U MICRO, ERUR #### [facility] [address] [address] [address] Alfredo Lizama Neutrophils/100 WBC (Bld) 58.6 % Normal 43.0-75.0 [facility] Comment on above: Performed By: #### U MICRO, ERUR #### [facility] [address] [address] [address] Alfredo Lizama Platelet mean volume (Bld) [Entitic vol] 9.5 fL Normal 9.5-13.5 [facility] Comment on above: Performed By: #### U MICRO, ERUR #### [facility] [address] [address] [address] Alfredo Lizama PLT 273 103/ul Normal 150-450 [facility] Comment on above: Performed By: #### U MICRO, ERUR #### [facility] [address] [address] [address] Alfredo Lizama RBC 5.42 106/ul Critically high 4.20-5.[address] [facility] Comment on above: Performed By: #### U MICRO, ERUR #### [facility] [address] [address] [address] Alfredo Lizama WBC 8.4 103/ul Normal 4.0-11.0 [facility] Comment on above: Performed By: #### U MICRO, ERUR #### [facility] [address] [address] [address] Alfredo Lizama CULTURE URINEon 11-09-2022 CULTURE URINE Culture Observations : MODERATE GROWTH OF MIXED GENITAL ROSANNA. NO POTENTIAL PATHOGENS SEEN. Normal [facility] Comment on above: Performed By: #### U MICRO, ERUR #### [facility] [address] [address] [address] Alfredo Lizama ER URINE PROFILEon 3 Bilirubin Ql (U) Negative Normal NEGATIVE [facility] Comment on above: Performed By: #### U MICRO, ERUR #### [facility] [address] [address] [address] Alfredo Lizama Clarity (U) CLEAR Normal CLEAR [facility] Comment on above: Performed By: #### U MICRO, ERUR #### [facility] [address] [address] [address] Alfredo Lizama Color (U) LT. YELLOW Normal YELLOW [facility] Comment on above: Performed By: #### U MICRO, ERUR #### [facility] [address] [address] [address] Alfredo Lizama ERUAHD A micrscopic examina tion will be performed if indicated. Normal [facility] Comment on above: Performed By: #### U MICRO, ERUR #### [facility] [address] [address] [address] Alfredo Lizama Glucose Ql (U) Negative Normal NEGATIVE [facility] Comment on above: Performed By: #### U MICRO, ERUR #### [facility] [address] [place] [address] Dr. Alfredo Lizama Hemoglobin Ql (U) MODERATE Abnormal NEGATIVE [facility] Comment on above: Performed By: #### U MICRO, ERUR #### [facility] [address] [address] [address] Alfredo Lizama Ketones Ql (U) Negative Normal NEGATIVE [facility] Comment on above: Performed By: #### U MICRO, ERUR #### [facility] [address] [place] [address] Dr. Alfredo Lizama LEUKOCYTES LARGE Abnormal NEGATIVE [facility] Comment on above: Performed By: #### U MICRO, ERUR #### [facility] [address] [address] [address] Alfredo Lizama Nitrite Ql (U) Negative Normal NEGATIVE [facility] Comment on above: Performed By: #### U MICRO, ERUR #### [facility] [address] [address] [address] Alfredo Lizama pH (U) 7.0 [pH] Normal 5-[address] [facility] Comment on above: Performed By: #### U MICRO, ERUR #### [facility] [address] [address] [address] Alfredo Lizama SPEC GRAVITY 1.015 Normal 1.005-<=1. [address] [facility] Comment on above: Performed By: #### U MICRO, ERUR #### [facility] [address] [place] [address] Dr. Alfredo Lizama UA PROTEIN Negative Normal NEGATIVE/ TRACE [facility] Comment on above: Performed By: #### U MICRO, ERUR #### [facility] [address] [place] [address] Dr. Alfredo Lizama UR MICRO IND INDICATED Normal [facility] Comment on above: Performed By: #### U MICRO, ERUR #### [facility] [address] [place] [address] Dr. Alfredo Lizama Urobilinogen Qn (U) 0.2 {Tesha'U}/dL Normal 0.2 - 1. [address] [facility] Comment on above: Performed By: #### U MICRO, ERUR #### [facility] [address] [place] [address] Dr. Alfredo Lizama LIPASEon 11-09-2022 Lipase [Catalytic activity/Vol] 34.0 U/L Critically low 73.0-393.0 [facility] Comment on above: Performed By: #### U MICRO, ERUR #### [facility] [address] [place] [address] Dr. Alfredo Lizama PROF 14(COMP METB)on 023 Albumin [Mass/Vol] 4.0 g/dL Normal 3.4-5.[address] [facility] Comment on above: Performed By: #### U MICRO, ERUR #### [facility] [address] [place] [address] Dr. Alfredo Lizama Albumin/Globulin [Mass ratio] 1.0 {ratio} Normal [facility] Comment on above: Performed By: #### U MICRO, ERUR #### [facility] [address] [place] [address] Dr. Alfredo Lizama ALP [Catalytic activity/Vol] 206 U/L Critically high 46-[address] [facility] Comment on above: Performed By: #### U MICRO, ERUR #### [facility] [address] [place] [address] Dr. Alfredo Lizama ALT [Catalytic activity/Vol] 53 U/L Normal 14-[address] [facility] Comment on above: Performed By: #### U MICRO, ERUR #### [facility] [address] [place] [address] Dr. Alfredo Lizama Anion gap [Moles/Vol] 14.5 mmol/L Normal [facility] Comment on above: Performed By: #### U MICRO, ERUR #### [facility] [address] [address] [address] Alfredo Lizama AST [Catalytic activity/Vol] 55 U/L Critically high 15-[address] [facility] Comment on above: Performed By: #### U MICRO, ERUR #### [facility] [address] [place] [address] Dr. Alfredo Lizama Bilirubin [Mass/Vol] 0.7 mg/dL Normal 0.2-1.0 [facility] Comment on above: Performed By: #### U MICRO, ERUR #### [facility] [address] [place] [address] Dr. Alfredo Lizama Calcium [Mass/Vol] 9.0 mg/dL Normal 8.5-10.[address] [facility] Comment on above: Performed By: #### U MICRO, ERUR #### [facility] [address] [place] [address] Dr. Alfredo Lizama Chloride [Moles/Vol] 100 mmol/L Normal 98-[address] [facility] Comment on above: Performed By: #### U MICRO, ERUR #### [facility] [address] [place] [address] Dr. Alfredo Lizama CO2 [Moles/Vol] 28.3 mmol/L Normal 21.0-32.[address] [facility] Comment on above: Performed By: #### U MICRO, ERUR #### [facility] [address] [place] [address] Dr. Alfredo Lizama Creatinine [Mass/Vol] 0.65 mg/dL Normal 0.55-1.[address] [facility] Comment on above: Performed By: #### U MICRO, ERUR #### [facility] [address] [address] [address] Alfredo Lizama EGFR-AF WALLISIAN >60 Normal >=60 [facility] Comment on above: Performed By: #### U MICRO, ERUR #### [facility] [address] [address] [address] Alfredo Lizama EGFR-NON AF WALLISIAN >60 Normal >=60 [facility] Comment on above: Performed By: #### U MICRO, ERUR #### [facility] [address] [address] [address] Alfredo Lizama Globulin (S) [Mass/Vol] 3.9 g/dL Normal [facility] Comment on above: Performed By: #### U MICRO, ERUR #### [facility] [address] [address] [address] Alfredo Lizama Glucose [Mass/Vol] 134 mg/dL Critically high 74-106 [facility] Comment on above: Performed By: #### U MICRO, ERUR #### [facility] [address] [address] [address] Alfredo Lizama Potassium [Moles/Vol] 3.8 mmol/L Normal 3.5-5.1 [facility] Comment on above: Performed By: #### U MICRO, ERUR #### [facility] [address] [place] [address] Dr. Alfredo Lizama Protein [Mass/Vol] 7.9 g/dL Normal 6.4-8.2 [facility] Comment on above: Performed By: #### U MICRO, ERUR #### [facility] [address] [address] [address] Alfredo Lizama Sodium [Moles/Vol] 139 mmol/L Normal 136-145 [facility] Comment on above: Performed By: #### U MICRO, ERUR #### [facility] [address] [address] [address] Alfredo Lizama Urea nitrogen [Mass/Vol] 7.0 mg/dL Normal 7.0-18.0 [facility] Comment on above: Performed By: #### U MICRO, ERUR #### [facility] [address] [place] [address] Dr. Alfredo Lizama Urea nitrogen/Creatinine [Mass ratio] 10.7 mg/mg Normal [facility] Comment on above: Performed By: #### U MICRO, ERUR #### [facility] [address] [place] [address] Dr. Alfredo Lizama URINE MICROSCOPIC ONLYon BACTERIA TRACE Abnormal NONE SEEN [facility] Comment on above: Performed By: #### U MICRO, ERUR #### [facility] [address] [place] [address] Dr. Alfredo Lizama Bacteria identified Cx Nom (U) INDICATED Normal [facility] Comment on above: Performed By: #### U MICRO, ERUR #### [facility] [address] [place] [address] Dr. Alfredo Lizama CAST NONE SEEN Normal NONE SEEN [facility] Comment on above: Performed By: #### U MICRO, ERUR #### [facility] [address] [place] [address] Dr. Alfredo Lizama Crystals LM Nom (Urine sed) NONE SEEN Normal NONE SEEN [facility] Comment on above: Performed By: #### U MICRO, ERUR #### [facility] [address] [place] [address] Dr. Alfredo Lizama Epithelial cells LM Ql (Urine sed) FEW Abnormal NONE SEEN /RARE [facility] Comment on above: Performed By: #### U MICRO, ERUR #### [facility] [address] [place] [address] Dr. Alfredo Lizama MUCOUS NONE SEEN Normal NONE SEEN [facility] Comment on above: Performed By: #### U MICRO, ERUR #### [facility] [address] [place] [address] Dr. Alfredo Lizama RBC 20-50 Abnormal 0-[address] [facility] Comment on above: Performed By: #### U MICRO, ERUR #### [facility] [address] [place] [address] Dr. Alfredo Lizama WBC 20-50 Abnormal NONE SEEN [facility] Comment on above: Performed By: #### U MICRO, ERUR #### [facility] [address] [address] [address] Alfredo Lizama XR ABD FLAT_UPon 11-09-2022 [...] by: ENRIQUE LOWE Date: 2022-11-09 11:06 Normal [facility] CULTURE URINEon 10-18-2022 CULTURE URINE Isolate [...] Trimethoprim/Sulfamethoxa zole <=10 S F Normal [facility] Comment on above: Performed By: #### U MICRO, ERUR #### [facility] [address] [address] [address] Alfredo Lizama ER URINE PROFILEon 3 Bilirubin Ql (U) Negative Normal NEGATIVE [facility] Comment on above: Performed By: #### Jacque ESTRADA UMICRO #### [facility] [address] [place] [address] Dr. Alfredo Lizama Clarity (U) CLEAR Normal CLEAR [facility] Comment on above: Performed By: #### Jacque ESTRADA UMICRO #### [facility] [address] [place] [address] Dr. Alfredo Lizama Color (U) YELLOW Normal YELLOW [facility] Comment on above: Performed By: #### Jacque ESTRADA UMICRO #### [facility] [address] [place] [address] Dr. Alfredo RAYMUNDO A micrscopic examina tion will be performed if indicated. Normal [facility] Comment on above: Performed By: #### Jacque ESTRADA UMICRO #### [facility] [address] [place] [address] Dr. Alfredo Lizama Glucose Ql (U) Negative Normal NEGATIVE [facility] Comment on above: Performed By: #### Jacque ESTRADA UMICRO #### [facility] [address] [place] [address] Dr. Alfredo Lizama Hemoglobin Ql (U) LARGE Abnormal NEGATIVE [facility] Comment on above: Performed By: #### Jacque ESTRADA UMICRO #### [facility] [address] [place] [address] Dr. Alfredo Lizama Ketones Ql (U) Negative Normal NEGATIVE [facility] Comment on above: Performed By: #### Jacque ESTRADA UMICRO #### [facility] [address] [place] [address] Dr. Alfredo Lizama LEUKOCYTES LARGE Abnormal NEGATIVE [facility] Comment on above: Performed By: #### Jacque ESTRADA UMICRO #### [facility] [address] [place] [address] Dr. Alfredo Lizama Nitrite Ql (U) Positive Abnormal NEGATIVE [facility] Comment on above: Performed By: #### Jacque ESTRADA UMICRO #### [facility] [address] [place] [address] Dr. Alfredo Lizama pH (U) 6.5 [pH] Normal 5-[address] [facility] Comment on above: Performed By: #### LINDA CHAVES #### [facility] [address] [place] [address] Dr. Alfredo Lizama Protein (U) [Mass/Vol] 100 mg/dL Abnormal NEGAT MAGDA/ TRACE [facility] Comment on above: Performed By: #### LINDA CHAVES #### [facility] [address] [place] [address] Dr. Alfredo Lizama SPEC GRAVITY 1.010 Normal 1.005-<=1. 025 [facility] Comment on above: Performed By: #### LINAD CHAVES #### [facility] [address] [place] [address] Dr. Alfredo Lizama UR MICRO IND INDICATED Normal [facility] Comment on above: Performed By: #### LINDA CHAVES #### [facility] [address] [place] [address] Dr. Alfredo Lizama Urobilinogen Qn (U) 1.0 {Tesha'U}/dL Normal 0.2 - 1. [address] [facility] Comment on above: Performed By: #### LINDA CHAVES #### [facility] [address] [place] [address] Dr. Alfredo Lizama URINE MICROSCOPIC ONLYon BACTERIA MODERATE Abnormal NONE SEEN [facility] Comment on above: Performed By: #### U MICRO, ERUR #### [facility] [address] [place] [address] Dr. Alfredo Lizama Bacteria identified Cx Nom (U) INDICATED Normal [facility] Comment on above: Performed By: #### U MICRO, ERUR #### [facility] [address] [place] [address] Dr. Alfredo Lizama CA OX CRYSTALS RARE Normal [facility] Comment on above: Performed By: #### U MICRO, ERUR #### [facility] [address] [place] [address] Dr. Alfredo Lizama CAST NONE SEEN Normal NONE SEEN [facility] Comment on above: Performed By: #### U MICRO, ERUR #### [facility] [address] [place] [address] Dr. Alfredo Lizama Crystals LM Nom (Urine sed) SEEN Abnormal NONE SEEN [facility] Comment on above: Performed By: #### U MICRO, ERUR #### [facility] [address] [place] [address] Dr. Alfredo Lizama Epithelial cells LM Ql (Urine sed) MODERATE Abnormal NONE SEEN /RARE [facility] Comment on above: Performed By: #### U MICRO, ERUR #### [facility] [address] [place] [address] Dr. Alfredo Lizama MUCOUS TRACE Abnormal NONE SEEN [facility] Comment on above: Performed By: #### U MICRO, ERUR #### [facility] [address] [place] [address] Dr. Alfredo Lizama RBC 20-50 Abnormal 0-[address] [facility] Comment on above: Performed By: #### U MICRO, ERUR #### [facility] [address] [place] [address] Dr. Alfredo Lizama WBC 50-75 Abnormal NONE SEEN [facility] Comment on above: Performed By: #### U MICRO, ERUR #### [facility] [address] [place] [address] Dr. Alfredo Lizama Covid-19 PCR ([facility])on 08-06 SARS-CoV-2 (COVID-19) RNA ADRIÁN+probe Ql (Unsp spec) Not detected Normal NOT DETECTED [facility] Comment on above: Result Comment: When [...] for this test is supported by the Curator Of Education of Health and Human Service's declaration that [...] Performed By: #### U MICRO, ERUR #### [facility] [address] [place] [address] Dr. Alfredo Lizama CBC AUTO DIFFon 08-24-2022 BASO # 0.1 103/ul Normal 0.0-0.1 [facility] Comment on above: Performed By: #### C BC #### [facility] [address] [place] [address] Dr. Alfredo Lizama Basophils/100 WBC (Bld) 0.8 % Normal 0.2-2.0 [facility] Comment on above: Performed By: #### C BC #### [facility] [address] [place] [address] Dr. Alfredo Lizama EO # 0.3 103/ul Normal 0.0-0.7 [facility] Comment on above: Performed By: #### C BC #### [facility] [address] [place] [address] Dr. Alfredo Lizama Eosinophils/100 WBC (Bld) 3.1 % Normal 0.9-7.0 [facility] Comment on above: Performed By: #### C BC #### [facility] [address] [place] [address] Dr. Alfredo Lizama Erythrocyte distribution width (RBC) [Ratio] 13.4 % Normal 11.0-15.0 [facility] Comment on above: Performed By: #### C BC #### [facility] [address] [place] [address] Dr. Alfredo Lizama Hematocrit (Bld) [Volume fraction] 47.2 % Normal 36.0-48.0 [facility] Comment on above: Performed By: #### C BC #### [facility] [address] [place] [address] Dr. Alfredo Lizama Hemoglobin (Bld) [Mass/Vol] 15.6 g/dL Normal 12.0-16.0 [facility] Comment on above: Performed By: #### C BC #### [facility] [address] [place] [address] Dr. Alfredo Lizama IG # 0.02 10e3/ul Normal 0.00-0.03 [facility] Comment on above: Performed By: #### C BC #### [facility] [address] [place] [address] Dr. Alfredo Lizama IG % 0.2 % Normal 0.0-0.5 [facility] Comment on above: Performed By: #### C BC #### [facility] [address] [place] [address] Dr. Alfredo Lizama LYMPH # 4.4 103/ul Critically high 1.2-3.8 [facility] Comment on above: Performed By: #### C BC #### [facility] [address] [place] [address] Dr. Alfredo Lizama Lymphocytes/100 WBC (Bld) 42.3 % Normal 20.5-60.0 [facility] Comment on above: Performed By: #### C BC #### [facility] [address] [place] [address] Dr. Alfredo Lizama MANUAL DIFF REQ NO Normal [facility] Comment on above: Performed By: #### C BC #### [facility] [address] [place] [address] Dr. Alfredo Lizama MCH (RBC) [Entitic mass] 28.8 pg Normal 26.7-34.0 [facility] Comment on above: Performed By: #### C BC #### [facility] [address] [place] [address] Dr. Alfredo Lizama MCHC (RBC) [Mass/Vol] 33.1 g/dL Normal 29.9-35.2 [facility] Comment on above: Performed By: #### C BC #### [facility] [address] [place] [address] Dr. Alfredo Lizama MCV (RBC) [Entitic vol] 87.2 fL Normal 81.0-99.0 [facility] Comment on above: Performed By: #### C BC #### [facility] [address] [place] [address] Dr. Alfredo Lizama MONO # 0.6 103/ul Normal 0.3-0.8 [facility] Comment on above: Performed By: #### C BC #### [facility] [address] [place] [address] Dr. Alfredo Lizama Monocytes/100 WBC (Bld) 5.3 % Normal 1.7-12.0 [facility] Comment on above: Performed By: #### C BC #### [facility] [address] [place] [address] Dr. Alfredo Lizama NEUT # 5.0 103/ul Normal 1.4-6.5 [facility] Comment on above: Performed By: #### C BC #### [facility] [address] [place] [address] Dr. Alfredo Lizama Neutrophils/100 WBC (Bld) 48.3 % Normal 43.0-75.0 [facility] Comment on above: Performed By: #### C BC #### [facility] [address] [place] [address] Dr. Alfredo Lizama Platelet mean volume (Bld) [Entitic vol] 9.9 fL Normal 9.5-13.5 [facility] Comment on above: Performed By: #### C BC #### [facility] [address] [place] [address] Dr. Alfredo Lizama PLT 298 103/ul Normal 150-450 [facility] Comment on above: Performed By: #### C BC #### [facility] [address] [place] [address] Dr. Alfredo Lizama RBC 5.41 106/ul Critically high 4.20-5.40 [facility] Comment on above: Performed By: #### C BC #### [facility] [address] [place] [address] Dr. Alfredo Lizama WBC 10.3 103/ul Normal 4.0-11.0 [facility] Comment on above: Performed By: #### C BC #### [facility] [address] [address] [address] Alfredo Lizama PROF CHEM 8 (BAS METB)on Anion gap [Moles/Vol] 14.3 mmol/L Normal [facility] Comment on above: Performed By: #### U MICRO, ERUR #### [facility] [address] [place] [address] Dr. Alfredo Lizama Calcium [Mass/Vol] 9.1 mg/dL Normal 8.5-10.1 [facility] Comment on above: Performed By: #### U MICRO, ERUR #### [facility] [address] [place] [address] Dr. Alfredo Lizama Chloride [Moles/Vol] 99 mmol/L Normal 98-107 [facility] Comment on above: Performed By: #### U MICRO, ERUR #### [facility] [address] [place] [address] Dr. Alfredo Lizama CO2 [Moles/Vol] 29.0 mmol/L Normal 21.0-32.0 [facility] Comment on above: Performed By: #### U MICRO, ERUR #### [facility] [address] [place] [address] Dr. Alfredo Lizama Creatinine [Mass/Vol] 0.70 mg/dL Normal 0.55-1.02 [facility] Comment on above: Performed By: #### U MICRO, ERUR #### [facility] [address] [place] [address] Dr. Alfredo Lizama EGFR-AF WALLISIAN >60 Normal >=60 [facility] Comment on above: Performed By: #### U MICRO, ERUR #### [facility] [address] [place] [address] Dr. Alfredo Lizama EGFR-NON AF WALLISIAN >60 Normal >=60 [facility] Comment on above: Performed By: #### U MICRO, ERUR #### [facility] [address] [place] [address] Dr. Alfredo Lizama Glucose [Mass/Vol] 121 mg/dL Critically high 74-106 [facility] Comment on above: Performed By: #### U MICRO, ERUR #### [facility] [address] [place] [address] Dr. Alfredo Lizama Potassium [Moles/Vol] 3.3 mmol/L Critically low 3.5-5.1 [facility] Comment on above: Performed By: #### U MICRO, ERUR #### [facility] [address] [place] [address] Dr. Alfredo Lizama Sodium [Moles/Vol] 139 mmol/L Normal 136-145 [facility] Comment on above: Performed By: #### U MICRO, ERUR #### [facility] [address] [place] [address] Dr. Alfredo Lizama Urea nitrogen [Mass/Vol] 5.0 mg/dL Critically low 7.0-18. 0 [facility] Comment on above: Performed By: #### U MICRO, ERUR #### [facility] [address] [place] [address] Dr. Alfredo Lizama Urea nitrogen/Creatinine [Mass ratio] 7.1 mg/mg Normal [facility] Comment on above: Performed By: #### U MICRO, ERUR #### [facility] [address] [place] [address] Dr. Alfredo Lizama PROTIMEon 08-24-2022 INR Coag (PPP) [Relative time] 0.99 {INR} Normal [facility] Comment on above: Performed By: #### P T, PTT #### [facility] [address] [place] [address] Dr. Alfredo Lizama INR GUIDELINES SEE BELOW Normal [facility] Comment on above: Result Comment: MARY JO RED INR: 2.0 - 3.0 CONDITIONS NOT LISTED BELOW 2.5 - 3.5 FOR PROSTHETIC HEART VALVE REPLACEMENT 2.5 - 3.5 RECURRENT THROMBOSIS Performed By: #### P T, PTT #### [facility] [address] [place] [address] Dr. Alfredo Lizama PT Coag (PPP) [Time] 10.7 s Normal 9.0-11.6 [facility] Comment on above: Performed By: #### P T, PTT #### [facility] [address] [place], [place] [address] Dr. Alfredo Lizama PTTon 08-24-2022 aPTT Coag (Bld) [Time] 31.7 s Normal 22.3-36.[address] [facility] Comment on above: Performed By: #### P T, PTT #### [facility] [address] [place], [place] [address] Dr. Alfredo Lizama BN SACRUM/COCCYX, MIN 2 [...] 09/20/2019. Thoracolumbar spine radiographs 09/08/2021. ACCESSION NUMBER(S): [id number]; [id number]; [id number] ORDERING CLINICIAN: CANDICE PEREZ FINDINGS: Three views [...] signed by: GOMEZ JAMA MD Normal [facility] BN SPINE, LUMBOSACRAL; 2 OR 3 VIEWSon [...] 09/20/2019. Thoracolumbar spine radiographs 09/08/2021. ACCESSION NUMBER(S): [id number]; [id number]; [id number] ORDERING CLINICIAN: CANDICE PEREZ FINDINGS: Three views [...] signed by: GOMEZ JAMA MD Normal [facility] BN SPINE, THORACIC, 3 VIEWSo n 06-07-2022 [...] 09/20/2019. Thoracolumbar spine radiographs 09/08/2021. ACCESSION NUMBER(S): [id number]; [id number]; [id number] ORDERING CLINICIAN: CANDICE PEREZ FINDINGS: Three views [...] signed by: GOMEZ JAMA MD Normal [facility] CBC AND DIFFERENTIALon 06-07 % AUTOMATED IMMATURE GRAN 0.2 % Normal 0.0 - 0.9 [facility] Comment on above: Result Comment: Jaleesa ture Granulocyte Count (IG) includes promyelocytes, myelocytes and metamyelocytes but does not include bands. Percent differential counts (%) should be interpreted in the context of the absolute cell counts (cells/L). Performed By: #### R ENAL #### [facility] [address] [place] [address] Basophils (Bld) [#/Vol] 0.09 10*3/uL Normal 0.00 - 0.10 [facility] Comment on above: Performed By: #### R ENAL #### [facility] [address] [place] [address] Basophils/100 WBC (Bld) 1.0 % Normal 0.0 - 2.0 [facility] Comment on above: Performed By: #### R ENAL #### [facility] [address] [place] [address] Eosinophils (Bld) [#/Vol] 0.24 10*3/uL Normal 0.00 - 0.70 [facility] Comment on above: Performed By: #### R ENAL #### [facility] [address] [place] [address] Eosinophils/100 WBC (Bld) 2.6 % Normal 0.0 - 6.0 [facility] Comment on above: Performed By: #### R ENAL #### [facility] [address] [place] [address] Erythrocyte distribution width (RBC) [Ratio] 12.9 % Normal 11.5 - 14.5 [facility] Comment on above: Performed By: #### R ENAL #### [facility] [address] [place] [address] Hematocrit (Bld) [Volume fraction] 48.4 % High 36.0 - 46.0 [facility] Comment on above: Performed By: #### R ENAL #### [facility] [address] [place] [address] Hemoglobin (Bld) [Mass/Vol] 17.1 g/dL High 12.0 - 16.0 [facility] Comment on above: Performed By: #### R ENAL #### [facility] [address] [place] [address] Lymphocytes (Bld) [#/Vol] 2.93 10*3/uL Normal 1.20 - 4.80 [facility] Comment on above: Performed By: #### R ENAL #### [facility] [address] [place] [address] Lymphocytes/100 WBC (Bld) 31.9 % Normal 13.0 - 44.0 [facility] Comment on above: Performed By: #### R ENAL #### [facility] [address] [place] [address] MCHC (RBC) [Mass/Vol] 35.3 g/dL Normal 32.0 - 36.0 [facility] Comment on above: Performed By: #### R ENAL #### [facility] [address] [place] [address] MCV (RBC) [Entitic vol] 85 fL Normal 80 - 100 [facility] Comment on above: Performed By: #### R ENAL #### [facility] [address] [place] [address] Monocytes (Bld) [#/Vol] 0.36 10*3/uL Normal 0.10 - 1.00 [facility] Comment on above: Performed By: #### R ENAL #### [facility] [address] [place] [address] Monocytes/100 WBC (Bld) 3.9 % Normal 2.0 - 10.0 [facility] Comment on above: Performed By: #### R ENAL #### [facility] [address] [place] [address] Neutrophils (Bld) [#/Vol] 5.54 10*3/uL Normal 1.20 - 7.70 [facility] Comment on above: Performed By: #### R ENAL #### [facility] [address] [place] [address] Neutrophils/100 WBC (Bld) 60.4 % Normal 40.0 - 80.0 [facility] Comment on above: Performed By: #### R ENAL #### [facility] [address] [place] [address] NUCLEATED RBC 0.0 /100 WBC Normal 0.0-0.0 [facility] Comment on above: Performed By: #### R ENAL #### [facility] [address] [place] [address] Platelets (Bld) [#/Vol] 365 10*3/uL Normal 150 - 450 [facility] Comment on above: Performed By: #### R ENAL #### [facility] [address] [place] [address] RBC 5.69 x10E12/L High 4.00 - 5.20 [facility] Comment on above: Performed By: #### R ENAL #### [facility] [address] [place] [address] WBC (Bld) [#/Vol] 9.2 10*3/uL Normal 4.4 - 11.3 [facility] Comment on above: Performed By: #### R ENAL #### [facility] [address] [place] [address] COMPREHENSIVE PANELon 2021 Albumin [Mass/Vol] 4.6 g/dL Normal 3.4 - 5.0 [facility] Comment on above: Performed By: #### R ENAL #### [facility] [address] [place] [address] ALP [Catalytic activity/Vol] 192 U/L High 33 - 110 [facility] Comment on above: Performed By: #### R ENAL #### [facility] [address] [place] [address] ALT [Catalytic activity/Vol] 33 U/L Normal 7 - 45 [facility] Comment on above: Result Comment: Melly ents treated with Sulfasalazine may generate falsely decreased results for ALT. Performed By: #### R ENAL #### [facility] [address] [place] [address] Anion gap [Moles/Vol] 16 mmol/L Normal 10 - 20 [facility] Comment on above: Performed By: #### R ENAL #### [facility] [address] [place] [address] AST [Catalytic activity/Vol] 51 U/L High 9 - 39 [facility] Comment on above: Performed By: #### R ENAL #### [facility] [address] [place] [address] Bilirubin [Mass/Vol] 0.5 mg/dL Normal 0.0 - 1.2 [facility] Comment on above: Performed By: #### R ENAL #### [facility] [address] [place] [address] Calcium [Mass/Vol] 10.3 mg/dL Normal 8.6 - 10.6 [facility] Comment on above: Performed By: #### R ENAL #### [facility] [address] [place] [address] Chloride [Moles/Vol] 101 mmol/L Normal 98 - 107 [facility] Comment on above: Performed By: #### R ENAL #### [facility] [address] [place] [address] Creatinine [Mass/Vol] 0.61 mg/dL Normal 0.50 - 1.05 [facility] Comment on above: Performed By: #### R ENAL #### [facility] [address] [place] [address] eGFR FEMALE >90 Normal >90 [facility] Comment on above: Result Comment: CALC ULATIONS OF ESTIMATED GFR ARE PERFORMED USING THE 2020 CKD-EPI STUDY REFIT EQUATION WITHOUT THE RACE VARIABLE FOR THE IDMS-TRACEABLE CREATININE METHODS. https://jasn.asnjournals.org/content/early//ASN.278 5455239 Performed By: #### R ENAL #### [facility] [address] [place] [address] Glucose [Mass/Vol] 100 mg/dL High 74 - 99 [facility] Comment on above: Performed By: #### R ENAL #### [facility] [address] [place] [address] HCO3 (Bld) [Moles/Vol] 27 mmol/L Normal 21 - 32 [facility] Comment on above: Performed By: #### R ENAL #### [facility] [address] [place] [address] Potassium [Moles/Vol] 3.8 mmol/L Normal 3.5 - 5.3 [facility] Comment on above: Performed By: #### R ENAL #### [facility] [address] [place] [address] Protein [Mass/Vol] 8.2 g/dL Normal 6.4 - 8.2 [facility] Comment on above: Performed By: #### R ENAL #### [facility] [address] [place] [address] Sodium [Moles/Vol] 140 mmol/L Normal 136 - 145 [facility] Comment on above: Performed By: #### R ENAL #### [facility] [address] [place] [address] Urea nitrogen [Mass/Vol] 5 mg/dL Low 6 - 23 [facility] Comment on above: Performed By: #### R ENAL #### [facility] [address] [place] [address] Consult - Neuro-Surgeryon Consult - Neuro-Surgery Service: [...] 07-Jun-2022 11:22 by Perez Carlisle) Normal [facility] NR CT L-SPINE WO CONTRASTon 06-07-[address] L-SPINE WO CONTRAST Patient Name: MORALES LEE STUDY: CT T-SPINE WO CONTRAST; CT L-SPINE WO CONTRAST 06/06/2022 11:03 pm INDICATION: ok, Lie Flat: Yes COMPARISON: 09/20/2021 MRI and 09/18/2021 CT ACCESSION NUMBER(S): [id number]; [id number] ORDERING CLINICIAN: CANDICE PEREZ TECHNIQUE: Axial CT [...] osseous spinal canal or neural foraminal stenosis. [id number] spinal canal and neural foraminal narrowing described [...] of view. Electronically signed by: CELI MCNEIL, Normal [facility] NR CT T-SPINE WO CONTRASTon 06-07-[address] T-SPINE WO CONTRAST Patient Name: MORALES LEE STUDY: CT T-SPINE WO CONTRAST; CT L-SPINE WO CONTRAST 06/06/2022 11:03 pm INDICATION: ok, Lie Flat: Yes COMPARISON: 09/20/2021 MRI and 09/18/2021 CT ACCESSION NUMBER(S): [id number]; [id number] ORDERING CLINICIAN: CANDICE PEREZ TECHNIQUE: Axial CT [...] osseous spinal canal or neural foraminal stenosis. [id number] spinal canal and neural foraminal narrowing described [...] Electronically signed by: DO Andrei TOURE [facility] Provider Note - ED Care Diaz nabila [...] 21-Jun-2022 06:18 by Yony Aguirre () Andrei [facility] Provider Note - ED v3on 10-0 Provider [...] M21.37 (more content not included)... Normal [facility] Triage - EDon 06-06-2022 Triage - ED [...] BMI (kg/m2): 34.793 Calculated BSA (m2) 1.94 [place] Coma Scale: Best Eye Response: (E4) spontaneous [...] 06-Jun-2022 19:07 by Meghan Chavez (RN) Normal [facility] CULTURE URINEon 05-10-2022 CULTURE URINE Isolate 1 [...] F Trimethoprim/Sulfamethoxa zole <=20 S F Normal [facility] Comment on above: Performed By: #### U MICRO, ERUR #### [facility] [address] [place] [address] Dr. Alfredo Lizama CBC AUTO DIFFon 05-07-2022 BASO # 0.1 103/ul Normal 0.0-0.1 [facility] Comment on above: Performed By: #### U MICRO, ERUR #### [facility] [address] [address] [address] Alfredo Lizama Basophils/100 WBC (Bld) 0.5 % Normal 0.2-2.0 [facility] Comment on above: Performed By: #### U MICRO, ERUR #### [facility] [address] [place] [address] Dr. Alfredo Lizama EO # 0.4 103/ul Normal 0.0-0.7 [facility] Comment on above: Performed By: #### U MICRO, ERUR #### [facility] [address] [place] [address] Dr. Alfredo Lizama Eosinophils/100 WBC (Bld) 3.5 % Normal 0.9-7.0 [facility] Comment on above: Performed By: #### U MICRO, ERUR #### [facility] [address] [place] [address] Dr. Alfredo Lizama Erythrocyte distribution width (RBC) [Ratio] 13.2 % Normal 11.0-15.[address] [facility] Comment on above: Performed By: #### U MICRO, ERUR #### [facility] [address] [place] [address] Dr. Alfredo Lizama Hematocrit (Bld) [Volume fraction] 44.0 % Normal 36.0-48.0 [facility] Comment on above: Performed By: #### U MICRO, ERUR #### [facility] [address] [place] [address] Dr. Alfredo Lizama Hemoglobin (Bld) [Mass/Vol] 14.8 g/dL Normal 12.0-16.[address] [facility] Comment on above: Performed By: #### U MICRO, ERUR #### [facility] [address] [place] [address] Dr. Alfredo Lizama IG # 0.03 10e3/ul Normal 0.00-0.[address] [facility] Comment on above: Performed By: #### U MICRO, ERUR #### [facility] [address] [place] [address] Dr. Alfredo Lizama IG % 0.2 % Normal 0.0-0.[address] [facility] Comment on above: Performed By: #### U MICRO, ERUR #### [facility] [address] [place] [address] Dr. Alfredo Lizama LYMPH # 3.8 103/ul Normal 1.2-3.[address] [facility] Comment on above: Performed By: #### U MICRO, ERUR #### [facility] [address] [place] [address] Dr. Alfredo Lizama Lymphocytes/100 WBC (Bld) 31.3 % Normal 20.5-60.0 [facility] Comment on above: Performed By: #### U MICRO, ERUR #### [facility] [address] [place] [address] Dr. Alfredo Lizama MANUAL DIFF REQ NO Normal [facility] Comment on above: Performed By: #### U MICRO, ERUR #### [facility] [address] [place] [address] Dr. Alfredo Lizama MCH (RBC) [Entitic mass] 28.8 pg Normal 26.7-34.0 [facility] Comment on above: Performed By: #### U MICRO, ERUR #### [facility] [address] [place] [address] Dr. Alfredo Lizama MCHC (RBC) [Mass/Vol] 33.6 g/dL Normal 29.9-35.2 [facility] Comment on above: Performed By: #### U MICRO, ERUR #### [facility] [address] [place] [address] Dr. Alfredo Lizama MCV (RBC) [Entitic vol] 85.8 fL Normal 81.0-99.0 [facility] Comment on above: Performed By: #### U MICRO, ERUR #### [facility] [address] [place] [address] Dr. Alfredo Lizama MONO # 0.7 103/ul Normal 0.3-0.8 [facility] Comment on above: Performed By: #### U MICRO, ERUR #### [facility] [address] [place] [address] Dr. Alfredo Lizama Monocytes/100 WBC (Bld) 5.8 % Normal 1.7-12.0 [facility] Comment on above: Performed By: #### U MICRO, ERUR #### [facility] [address] [place] [address] Dr. Alfredo Lizama NEUT # 7.1 103/ul Critically high 1.4-6.5 [facility] Comment on above: Performed By: #### U MICRO, ERUR #### [facility] [address] [address] [address] Alfredo Lizama Neutrophils/100 WBC (Bld) 58.7 % Normal 43.0-75.0 [facility] Comment on above: Performed By: #### U MICRO, ERUR #### [facility] [address] [address] [address] Alfredo Lizama Platelet mean volume (Bld) [Entitic vol] 9.6 fL Normal 9.5-13.5 [facility] Comment on above: Performed By: #### U MICRO, ERUR #### [facility] [address] [address] [address] Alfredo Lizama PLT 269 103/ul Normal 150-450 [facility] Comment on above: Performed By: #### U MICRO, ERUR #### [facility] [address] [address] [address] Alfredo Lizama RBC 5.13 106/ul Normal 4.20-5.[address] [facility] Comment on above: Performed By: #### U MICRO, ERUR #### [facility] [address] [address] [address] Alfredo Lizama WBC 12.2 103/ul Critically high 4.0-11.0 [facility] Comment on above: Performed By: #### U MICRO, ERUR #### [facility] [address] [place] [address] ABD/PELV W CONon [...] KORIN STANLEY Date: 2022-05-07 14:[address] [facility] ER URINE PROFILEon 2 Bilirubin Ql (U) Negative Normal NEGATIVE [facility] Comment on above: Performed By: #### U MICRO, ERUR #### [facility] [address] [place], [place] [address] Dr. Alfredo Lizama Clarity (U) CLOUDY Abnormal CLEAR [facility] Comment on above: Performed By: #### U MICRO, ERUR #### [facility] [address] [address] [address] Alfredo Lizama Color (U) LT. YELLOW Normal YELLOW [facility] Comment on above: Performed By: #### U MICRO, ERUR #### [facility] [address] [place] [address] Dr. Alfrdeo RAYMUNDO A micrscopic examina tion will be performed if indicated. Normal [facility] Comment on above: Performed By: #### U MICRO, ERUR #### [facility] [address] [address] [address] Alfredo Lizama Glucose Ql (U) Negative Normal NEGATIVE [facility] Comment on above: Performed By: #### U MICRO, ERUR #### [facility] [address] [place] [address] Dr. Alfredo Lizama Hemoglobin Ql (U) LARGE Abnormal NEGATIVE [facility] Comment on above: Performed By: #### U MICRO, ERUR #### [facility] [address] [place] [address] Dr. Alfredo Lizama Ketones Ql (U) Negative Normal NEGATIVE [facility] Comment on above: Performed By: #### U MICRO, ERUR #### [facility] [address] [place] [address] Dr. Alfredo Lizama LEUKOCYTES MODERATE Abnormal NEGATIVE [facility] Comment on above: Performed By: #### U MICRO, ERUR #### [facility] [address] [place] [address] Dr. Alfredo Lizama Nitrite Ql (U) Positive Abnormal NEGATIVE [facility] Comment on above: Performed By: #### U MICRO, ERUR #### [facility] [address] [place] [address] Dr. Alfredo Lizama pH (U) 8.5 [pH] Normal 5-[address] [facility] Comment on above: Performed By: #### U MICRO, ERUR #### [facility] [address] [place] [address] Dr. Alfredo Lizama Protein (U) [Mass/Vol] 100 mg/dL Abnormal NEGAT MAGDA/ TRACE [facility] Comment on above: Performed By: #### U MICRO, ERUR #### [facility] [address] [address] [address] Alfredo Lizama SPEC GRAVITY 1.015 Normal 1.005-<=1. 025 [facility] Comment on above: Performed By: #### U MICRO, ERUR #### [facility] [address] [place] [address] Dr. Alfredo Lizama UR MICRO IND INDICATED Normal [facility] Comment on above: Performed By: #### U MICRO, ERUR #### [facility] [address] [place] [address] Dr. Alfredo Lizama Urobilinogen Qn (U) 1.0 {Tesha'U}/dL Normal 0.2 - 1. 0 [facility] Comment on above: Performed By: #### U MICRO, ERUR #### [facility] [address] [place] [address] Dr. Alfredo Lizama PROF CHEM 8 (BAS METB)on Anion gap [Moles/Vol] 12.0 mmol/L Normal [facility] Comment on above: Performed By: #### U MICRO, ERUR #### [facility] [address] [place] [address] Dr. Alfredo Lizama Calcium [Mass/Vol] 8.6 mg/dL Normal 8.5-10.[address] [facility] Comment on above: Performed By: #### U MICRO, ERUR #### [facility] [address] [place] [address] Dr. Alfredo Lizama Chloride [Moles/Vol] 101 mmol/L Normal 98-[address] [facility] Comment on above: Performed By: #### U MICRO, ERUR #### [facility] [address] [place] [address] Dr. Alfredo Lizama CO2 [Moles/Vol] 28.0 mmol/L Normal 21.0-32.0 [facility] Comment on above: Performed By: #### U MICRO, ERUR #### [facility] [address] [place] [address] Dr. Alfredo Lizama Creatinine [Mass/Vol] 0.77 mg/dL Normal 0.55-1.02 [facility] Comment on above: Performed By: #### U MICRO, ERUR #### [facility] [address] [address] [address] Alfredo Lizama EGFR-AF WALLISIAN >60 Normal >=60 [facility] Comment on above: Performed By: #### U MICRO, ERUR #### [facility] [address] [address] [address] Alfredo Lizama EGFR-NON AF WALLISIAN >60 Normal >=[address] [facility] Comment on above: Performed By: #### U MICRO, ERUR #### [facility] [address] [address] [address] Alfredo Lizama Glucose [Mass/Vol] 96 mg/dL Normal 74-106 [facility] Comment on above: Performed By: #### U MICRO, ERUR #### [facility] [address] [address] [address] Alfredo Lizama Potassium [Moles/Vol] 4.0 mmol/L Normal 3.5-5.1 [facility] Comment on above: Performed By: #### U MICRO, ERUR #### [facility] [address] [address] [address] Alfredo Lizama Sodium [Moles/Vol] 137 mmol/L Normal 136-145 [facility] Comment on above: Performed By: #### U MICRO, ERUR #### [facility] [address] [address] [address] Alfredo Lizama Urea nitrogen [Mass/Vol] 7.0 mg/dL Normal 7.0-18.[address] [facility] Comment on above: Performed By: #### U MICRO, ERUR #### [facility] [address] [address] [address] Alfredo Lizama Urea nitrogen/Creatinine [Mass ratio] 9.1 mg/mg Normal [facility] Comment on above: Performed By: #### U MICRO, ERUR #### [facility] [address] [address] [address] Alfredo Lizama URINE MICROSCOPIC ONLYon BACTERIA MODERATE Abnormal NONE SEEN [facility] Comment on above: Performed By: #### U MICRO, ERUR #### [facility] [address] [place] [address] Dr. Alfredo Lizama Bacteria identified Cx Nom (U) INDICATED Normal [facility] Comment on above: Performed By: #### U MICRO, ERUR #### [facility] [address] [place] [address] Dr. Alfredo Lizama CAST NONE SEEN Normal NONE SEEN [facility] Comment on above: Performed By: #### U MICRO, ERUR #### [facility] [address] [place] [address] Dr. Alfredo Lizama Crystals LM Nom (Urine sed) NONE SEEN Normal NONE SEEN [facility] Comment on above: Performed By: #### U MICRO, ERUR #### [facility] [address] [place] [address] Dr. Alfredo Lizama Epithelial cells LM Ql (Urine sed) FEW Abnormal NONE SEEN /RARE [facility] Comment on above: Performed By: #### U MICRO, ERUR #### [facility] [address] [place] [address] Dr. Alfredo Lizama MUCOUS NONE SEEN Normal NONE SEEN [facility] Comment on above: Performed By: #### U MICRO, ERUR #### [facility] [address] [place] [address] Dr. Alfredo Lizama RBC 2-5 Abnormal 0-[address] [facility] Comment on above: Performed By: #### U MICRO, ERUR #### [facility] [address] [place] [address] Dr. Alfredo Lizama WBC 10-20 Abnormal NONE SEEN [facility] Comment on above: Performed By: #### U MICRO, ERUR #### [facility] [address] [place] [address] Dr. Alfredo Lizama CULTURE URINEon 04-10-2022 CULTURE [...] Trimethoprim/Sulfamethoxa zole <=20 S F Normal [facility] Comment on above: Performed By: #### U MICRO, ERUR #### [facility] [address] [place] [address] Dr. Alfredo Lizama ER URINE PROFILEon 2 Bilirubin Ql (U) Negative Normal NEGATIVE [facility] Comment on above: Performed By: #### U MICRO, ERUR #### [facility] [address] [place] [address] Dr. Alfredo Lizama Clarity (U) CLOUDY Abnormal CLEAR [facility] Comment on above: Performed By: #### U MICRO, ERUR #### [facility] [address] [place] [address] Dr. Alfredo Lizama Color (U) YELLOW Normal YELLOW [facility] Comment on above: Performed By: #### U MICRO, ERUR #### [facility] [address] [place] [address] Dr. Alfredo Lizama ERUAHD A micrscopic examina tion will be performed if indicated. Normal [facility] Comment on above: Performed By: #### U MICRO, ERUR #### [facility] [address] [address] [address] Alfredo Lizama Glucose Ql (U) Negative Normal NEGATIVE [facility] Comment on above: Performed By: #### U MICRO, ERUR #### [facility] [address] [address] [address] Alfredo Lizama Hemoglobin Ql (U) SMALL Abnormal NEGATIVE [facility] Comment on above: Performed By: #### U MICRO, ERUR #### [facility] [address] [address] [address] Alfredo Lizama Ketones Ql (U) Negative Normal NEGATIVE [facility] Comment on above: Performed By: #### U MICRO, ERUR #### [facility] [address] [address] [address] Alfredo Lizama LEUKOCYTES LARGE Abnormal NEGATIVE [facility] Comment on above: Performed By: #### U MICRO, ERUR #### [facility] [address] [address] [address] Alfredo Lizama Nitrite Ql (U) Negative Normal NEGATIVE [facility] Comment on above: Performed By: #### U MICRO, ERUR #### [facility] [address] [address] [address] Alfredo Lizama pH (U) 7.0 [pH] Normal 5-9 [facility] Comment on above: Performed By: #### U MICRO, ERUR #### [facility] [address] [address] [address] Alfredo Lizama SPEC GRAVITY <=1.005 Abnormal 1.005-<=1. 025 [facility] Comment on above: Performed By: #### U MICRO, ERUR #### [facility] [address] [address] [address] Alfredo Lizama UA PROTEIN Negative Normal NEGATIVE/ TRACE [facility] Comment on above: Performed By: #### U MICRO, ERUR #### [facility] [address] [address] [address] Alfredo Lizama UR MICRO IND INDICATED Normal [facility] Comment on above: Performed By: #### U MICRO, ERUR #### [facility] [address] [place] [address] Dr. Alfredo Lizama Urobilinogen Qn (U) 0.2 {Tesha'U}/dL Normal 0.2 - 1. [address] [facility] Comment on above: Performed By: #### U MICRO, ERUR #### [facility] [address] [place] [address] Dr. Alfredo Lizama URINE MICROSCOPIC ONLYon BACTERIA MODERATE Abnormal NONE SEEN [facility] Comment on above: Performed By: #### U MICRO, ERUR #### [facility] [address] [place] [address] Dr. Alfredo Lizama Bacteria identified Cx Nom (U) INDICATED Normal [facility] Comment on above: Performed By: #### U MICRO, ERUR #### [facility] Laboratory [address] [place] [address] Dr. Alfredo Lizama CAST NONE SEEN Normal NONE SEEN [facility] Comment on above: Performed By: #### U MICRO, ERUR #### [facility] [address] [place] [address] Dr. Alfredo Lizama Crystals LM Nom (Urine sed) NONE SEEN Normal NONE SEEN [facility] Comment on above: Performed By: #### U MICRO, ERUR #### [facility] [address] [place] [address] Dr. Alfredo Lizama Epithelial cells LM Ql (Urine sed) FEW Abnormal NONE SEEN /RARE [facility] Comment on above: Performed By: #### U MICRO, ERUR #### [facility] [address] [place] [address] Dr. Alfredo Lizama MUCOUS NONE SEEN Normal NONE SEEN [facility] Comment on above: Performed By: #### U MICRO, ERUR #### [facility] [address] [place] [address] Dr. Alfredo Lizama RBC 5-10 Abnormal 0-[address] [facility] Comment on above: Performed By: #### U MICRO, ERUR #### [facility] [address] [place] [address] Dr. Alfredo Lizama WBC (U) [#/Vol] /uL Abnormal NONE SEEN [facility] Comment on above: Performed By: #### U MICRO, ERUR #### [facility] [address] [address] [address] Alfredo Lizama Clinical Event Note-Need for [...] of the lumbar region. Provider/Team Contact Info-Pager [phone] Electronic Signatures: Sharmin Guaman (CATAPULT AND ARRESTING GEAR OFFICER-[employer]) (Signed 02-Oct-2021 15:19) Authored: Clinical Event Note Last Updated: 02-Oct-2021 15:19 by Sharmin Guaman (CATAPULT AND ARRESTING GEAR OFFICER-HEALTH [employer]) Normal [facility] Clinical Event Note-Need for wheel Chairon 10-02-2021 [...] home, can self propel or has a rn complex care to provide assistance. Provider/Team Contact Info-Pager [phone] Electronic Signatures: Sharmin Guaman (CATAPULT AND ARRESTING GEAR OFFICER-[employer]) (Signed 02-Oct-2021 15:27) Authored: Clinical Event Note Last Updated: 02-Oct-2021 15:27 by Sharmin Guaman (CATAPULT AND ARRESTING GEAR OFFICER-[employer]) Normal [facility] Daily Progress Note-Neurosur gergaurang 10-02-2021 Daily Progress Note-Neurosurgery Service: Neurosurgery Subjective Data: MORALES LEE is a 46 year old Female who is Hospital Day # 18 and POD #11 for posterior L4-L5 decompression;posterior L4-L5 arthrodesis. Objective Data: Objective Information: T PRBPSpO2 [id number]/8397% Date/Time10/02 1: 1: 1: 1: 1:28 Range(36.2C [...] 2021 10:00 pm000 Oct 01, 2021 2:00 [id number] The Intake and Output Totals for the [...] the note. I personally evaluated the patient [id number] Electronic Signatures: Kenneth Philippe (Resident)) (Signed 02-Oct-2021 06:52) Authored: Service, Subjective Data, Objective Data, Assessment and Plan, Note Completion Lex Frederick) (Signed 02-Oct-2021 15:16) Authored: Note Completion Co-Signer: Service, Subjective Data, Objective Data, Assessment and Plan, Note Completion Last Updated: 02-Oct-2021 15:16 by Lex Frederick) [facility] Clinical Event Note-Discharg e discussionon 10-01-2021 [...] duration of trip. Electronic Signatures: Emma Izaguirre (CATAPULT AND ARRESTING GEAR OFFICER-[employer]) (Signed 01-Oct-2021 17:11) Authored: Clinical Event Note Last Updated: 01-Oct-2021 17:11 by Emma Izaguirre (CATAPULT AND ARRESTING GEAR OFFICER-[employer]) Normal [facility] Clinical Event Note-Need for hospital bedon 10-01-2021 [...] when lying flat. Electronic Signatures: Emma Izaguirre (CATAPULT AND ARRESTING GEAR OFFICER-[employer]) (Signed 01-Oct-2021 14:48) Authored: Clinical Event Note Last Updated: 01-Oct-2021 14:48 by Emma Izaguirre (CATAPULT AND ARRESTING GEAR OFFICER-[employer]) Normal [facility] Daily Progress Note-Neurossaray stearns 10-01-2021 Daily Progress Note-Neurosurgery Service: Neurosurgery Subjective Data: MORALES LEE is a 46 year old Female who is Hospital Day # 17 and POD #10 for posterior L4-L5 decompression;posterior L4-L5 arthrodesis. Objective Data: Objective Information: T PRBPSpO2 [id number]/7194% Date/Time10/01 0:381 0:381 0:381 0:381 0:38 Range(35.6C - 36.8C ) (64 - 96 ) (16 - 19 ) (94 - 138 )/ (59 - 83 ) (92% - 94% ) Pain reported at 09/30 9:00: 2 = Mild ---- Intake and Output ----- Mn/Dy/Year TimeIntakeOutputNet Sep 29, 2021 10:00 [id number] Sep 29, 2021 2:00 [id number] Sep 29, 2021 6:00 am000 The Intake [...] 01-Oct-2021 10:29 by Lex Frederick) Normal [facility] Daily Progress Note-Neurosurgery This report has been cancelled. Normal [facility] Daily Progress Note-Neurossaray stearns 09-30-2021 Daily Progress Note-Neurosurgery Service: Neurosurgery Subjective Data: MORALES LEE is a 46 year old Female who is Hospital Day # 15 and POD #8 for posterior L4-L5 decompression;posterior L4-L5 arthrodesis. Objective Data: Objective Information: T PRBPSpO2 [id number]/7393% Date/Time09/29 16: 16: 16: 16: 16:00 Range(36C - 36.7C ) (67 - 86 ) (17 - 20 ) (94 - 153 )/ (15 - 113 ) (93% - 98% ) Pain reported at 09/29 9:56: 5 = Moderate ---- Intake and Output ----- Mn/Dy/Year TimeIntakeOutputNet Sep 29, 2021 2:00 [id number] Sep 29, 2021 6:00 am000 Sep 28, 2021 10:00 [id number] The Intake and Output Totals for the [...] the note. I personally evaluated the patient [id number] Electronic Signatures: Lex Frederick) (Signed 30-Sep-2021 11:18) Authored: Note Completion Co-Signer: Service, Subjective Data, Objective Data, Assessment and Plan, Note Completion Jaya Mosquera (Resident)) (Signed 30-Sep-2021 03:18) Authored: Service, Subjective Data, Objective Data, Assessment and Plan, Note Completion Last Updated: 30-Sep-2021 11:18 by Lex Frederick) Normal [facility] Rehab Fxvz-ph-nmzyksloj - co -tx /c OT to address multidiscipon 09-30-2021 Rehab Vzta-bc-qpcuyawsx - co-tx /c OT to address multidiscip Rehab: Info: Disciplinephysical occupational therapy teacher Mode of Treatmentphysical therapy; co-treatment; co-tx /c OT to address multidisciplinary functional needs and maximize pt's safety. Time IN12:15 Time OUT12:55 Total Treatment [id number] Patient in ... at end of sessionbed, 3 railings up; alarm off; not on at start of visit Communicated with ... at end of sessionbedside nurse Patient Effortgood Symptoms Noted During/After Treatmentfatigue Treatment Considerations/CommentsEx tensive discussion /c amongst MACHINE WORKER, OT, and pt regarding her current physical [...] rolling right; rolling left; scooting/bridging Roll Left [place] (Bed Mobility)moderate assist (50% patient effort); 1 person assist; nonverbal cues (demo/gesture); verbal cues Roll Right [place] (Bed Mobility)moderate assist (50% patient effort); 1 person assist; nonverbal cues (demo/gesture); verbal cues Scoot/Bridge [place] (Bed Mobility)maximum assist (25% patient effort); 2 person assist; nonverbal cues (demo/gesture); verbal cues Ewkshy-oj-Vil [place] (Bed Mobility)maximum assist (25% patient effort); 2 person assist; nonverbal cues (demo/gesture); verbal cues Vne-rp-Obfazi [place] (Bed Mobility)maximum assist (25% patient effort); 2 person assist; nonverbal cues (demo/gesture); verbal cues Assistive Device (Bed Mobility)bed rails; draw sheet Comment, Bed MobilityPt showing improvement in her ability to roll, performing 50% of AROM to achieve full rolling position. Transfer Assessment/Interventionss it to stand transfer; stand to sit transfer Comment, TransfersToday's session, OT and I utilized Dinora Lincoln device to assist pt into full standing [...] Pt repositioned back to sitting EOB. Sit-Stand [place] (Transfers)dependent (less than 25% patient effort) Sit-Stand Assistive Device (Transfers)mechanical lift/aid Stand-Sit [place] (Transfers)dependent (less than 25% patient effort) Stand-Sit [...] Score8 Short Term Goals: Bed Mobility: Date [id number] Bed Mobility: [place] Level Goalminimum assist (75% patients effort) Bed Mobility: Physical Assist Level Goal1-person assist, verbal cues Bed Mobility: Time Frame for Goal2 wks Transfer: Established Transfer: Transfer Type Jetzhyf-du-lvydv/chair-to -bed; ipy-uj-dkfcj/gbrlq-dd-lin Transfer: [place] Level Goalmoderate assist (50% patients effort) Transfer: Physical Assist Level Goal1-person assist; verbal cues Transfer: Assistive Device Goalrolling walker Transfer: Time Frame for Goal2 wks Gait: Established Gait: [place] Level Goalmoderate assist (50% patients (more content not included)... Normal [facility] Rehab Note-occupational nurse apy - co-tx with PT to maximizeon 09-30-2021 Rehab Note-occupational therapy - co-tx with PT to maximize Rehab: Info: Disciplineoccupational therapist Mode of Treatmentoccupational therapy; co-tx with PT to maximize pt's mobility and safety. Time IN12:15 Time OUT12:55 Total Treatment [id number] Patient in ... at end of sessionbed, [...] olling right; rolling left; scooting/bridging Roll Left [place] (Bed Mobility)moderate assist (50% patient effort); 1 person assist; nonverbal cues (demo/gesture); verbal cues Roll Right [place] (Bed Mobility)moderate assist (50% patient effort); 1 person assist; nonverbal cues (demo/gesture); verbal cues Scoot/Bridge [place] (Bed Mobility)maximum assist (25% patient effort); 2 [...] lower body dressing; upper body dressing; bathing [place] Level (Bathing)set up; verbal cues; moderate assist (50% patient effort); 1 person assist Comment (Bathing)anticipated due to impaired balance, strength, and pain. [place] Level (Upper Body Dressing)set up; verbal cues; moderate assist (50% patient effort) Comment (Upper Body Dressing)anticipated due to impaired balance, strength, and pain. [place] Level (Lower Body Dressing)don; socks; dependent (less than 25% patient effort) Position (Lower Body Dressing)supine [place] Level (Grooming)modified independence Comment (Grooming)Pt observed applying Orajel to gums, able to manage packaging, cap un/screwing, and application. [place] Level (Feeding)modified independence Comment (Feeding)Pt able to retrieve OJ cup from tray table at R side, bring to mouth, and drink appropriately. [place] Level (Toileting)dependent (less than 25% patient effort); [...] Score15 Short Term Goals: Bed Mobility: Date [id number]-Qda-3291 Bed Mobility: [place] Level Goalcontact guard Bed Mobility: Physical Assist Level Goalset-up, verbal cues Bed Mobility: Time Frame for Goal2 wks Transfer: Established [id number] Transfer: Transfer Type Fwwnpqs-yy-txfew/chair-to -bed; saf-wb-jrqhh/wtswc-an-pkm ; toilet Transfer: [place] Level Goalminimum assist (75% patients effort) Transfer: Physical Assist Level Goalset-up; verbal cues; 1-person assist Transfer: Assistive Device GoalLRD Transfer: Time Frame for Goal2 wks Balance: Established [id number] Balance: Goal DetailsPt will perform ADL while reaching outside MADDIE and returning self to midline >8 minutes with set-up assist, SBA, and minimal verbal cues for safety. Enrique (more content not included)... Normal [facility] Daily Progress Note-Neurosur leonidasyon 09-29-2021 Daily Progress Note-Neurosurgery Service: Neurosurgery Subjective Data: MORALES LEE is a 46 year old Female who is Hospital Day # 14 and POD #7 for posterior L4-L5 decompression;posterior L4-L5 arthrodesis. Objective Data: Objective Information: T PRBPSpO2 [id number]/6993% Date/Time09/28 4: 8: 8: 8: 8:00 Range(36C [...] 2021 6:00 am000 Sep 27, 2021 10:00 [id number] Sep 27, 2021 2:00 [id number] The Intake and Output Totals for the last 24 hours are: IntakeOutputNet [id number] Physical Exam by System: Neurological: A&Ox3 RUE [...] the note. I personally evaluated the patient [id number] Electronic Signatures: Lex Frederick) (Signed 29-Sep-2021 09:23) Authored: Note Completion Co-Signer: Service, Subjective Data, Objective Data, Assessment and Plan, Note Completion Jaya Mosquera (Resident)) (Signed 29-Sep-2021 03:01) Authored: Service, Subjective Data, Objective Data, Assessment and Plan, Note Completion Last Updated: 29-Sep-2021 09:23 by Lex Frederick) [facility] Rehab Bsid-ll-civxwccyj - co -tx /c OT to address multidiscipon 09-29-2021 Rehab Kuaj-yh-ssitjiwho - co-tx /c OT to address multidiscip Rehab: Info: Disciplinephysical occupational therapy teacher Mode of Treatmentphysical therapy; co-treatment; co-tx /c OT to address multidisciplinary functional needs and maximize pt's safety. Time IN14:30 Time OUT15:40 Total Treatment [id number] Patient in ... at end of sessionbed, [...] to sit; sit to supine Roll Left [place] (Bed Mobility)maximum assist (25% patient effort); 2 person assist; verbal cues; nonverbal cues (demo/gesture) Roll Right [place] (Bed Mobility)maximum assist (25% patient effort); 2 person assist; verbal cues; nonverbal cues (demo/gesture) Scoot/Bridge [place] (Bed Mobility)maximum assist (25% patient effort); 2 person assist; nonverbal cues (demo/gesture); verbal cues Mnorkt-bm-Det [place] (Bed Mobility)maximum assist (25% patient effort); 2 person assist; nonverbal cues (demo/gesture); verbal cues Bks-vp-Iwtyic [place] (Bed Mobility)verbal cues; nonverbal cues (demo/gesture); maximum [...] Pt repositioned back to sitting EOB. Sit-Stand [place] (Transfers)dependent (less than 25% patient effort) Sit-Stand Assistive Device (Transfers)mechanical lift/aid Stand-Sit [place] (Transfers)dependent (less than 25% patient effort) Stand-Sit [...] Score8 Short Term Goals: Bed Mobility: Date Plbfnupzdtu10-Rau-5422 Bed Mobility: [place] Level Goalminimum assist (75% patients effort) Bed Mobility: Physical Assist Level Goal1-person assist, verbal cues Bed Mobility: Time Frame for Goal2 wks Transfer: Established [id number] Transfer: Transfer Type Euewsap-fa-xbcay/chair-to -bed; klb-tl-vfizy/lrpyy-qi-sqi Transfer: [place] Level Goalmoderate assist (50% patients effort) Transfer: Physical Assist Level Goal1-person assist; verbal cues Transfer: Assistive Device Goalrolling walker Transfer: Time Frame for Goal2 wks Gait: Established [id number] Gait: [place] Level Goalmoderate assist (50% patients effort) Gait: Physical Assist Level1-person assist; verbal cues Gait: Assistive Device Goalrolling walker Gait: Distance Goal15 feet Gait: Time Frame for Goal2 wks Balance: Established [id number]-Lcn-1505 Balance: Goal DetailsSitting EOB 20 minutes with 0-1 UE support, SBA for static sitting, CGA for dynamic. Standing 1 minute with FWW and CGA Education: Learnerpatient Topicrehab plan of care; discharge recommendations including destination and/or equipment Outcome Summary: Progress: Physical Therapyprogress towards functional goals is fair Outcome (more content not included)... Normal [facility] Rehab Note-occupational nurse apy - co-tx with PT to maximizeon 09-29-2021 Rehab Note-occupational therapy - co-tx with PT to maximize Rehab: Info: Disciplineoccupational therapist Mode of Treatmentoccupational therapy; co-tx with PT to maximize pt's mobility and safety. Time IN14:30 Time OUT15:40 Total Treatment [id number] Patient in ... at end of sessionbed, [...] to sit; sit to supine Roll Left [place] (Bed Mobility)maximum assist (25% patient effort); 2 person assist; verbal cues; nonverbal cues (demo/gesture); multiple rolls to adjust harness Roll Right [place] (Bed Mobility)maximum assist (25% patient effort); 2 person assist; verbal cues; nonverbal cues (demo/gesture); multiple rolls to adjust harness Scoot/Bridge [place] (Bed Mobility)maximum assist (25% patient effort); 2 person assist; nonverbal cues (demo/gesture); verbal cues; boost HOB Tsdkkk-rf-Jwz [place] (Bed Mobility)maximum assist (25% patient effort); 2 person assist; nonverbal cues (demo/gesture); verbal cues Qkf-tr-Bloxpp [place] (Bed Mobility)verbal cues; nonverbal cues (demo/gesture); maximum assist (25% patient effort); 2 person assist Assistive Device (Bed Mobility)draw sheet; bed rails Transfer Assessment/Interventionss it to stand transfer; stand to sit transfer Sit-Stand [place] (Transfers)dependent (less than 25% patient effort) Sit-Stand Assistive Device (Transfers)mechanical lift/aid; Faye Plus Stand-Sit [place] (Transfers)dependent (less than 25% patient effort) Stand-Sit Assistive Device (Transfers)mechanical lift/aid; Faye Plus Safety Issues Impacting Function (Mobility)awareness of need for assistance; insight into deficits/self awareness Impairments Impacting Function (Mobility)endurance/activ ity tolerance; strength; balance; coordination; postural/trunk control ADL: BADL Assessment/Interventionto ileting; feeding; grooming; lower body dressing; upper body dressing; bathing [place] Level (Bathing)set up; verbal cues; moderate assist (50% patient effort); 1 person assist Comment (Bathing)anticipated due to impaired balance, strength, and pain. [place] Level (Upper Body Dressing)set up; verbal cues; moderate assist (50% patient effort) Comment (Upper Body Dressing)anticipated due to impaired balance, strength, and pain. [place] Level (Lower Body Dressing)don; socks; dependent (less than 25% patient effort) Position (Lower Body Dressing)supine [place] Level (Grooming)set up; contact guard Comment (Grooming)anticipated due to impaired balance, strength, and pain. [place] Level (Feeding)set up; modified independence Comment (Feeding)anticipated [place] Level (Toileting)dependent (less than 25% patient effort); purewick Impairments, BADL Safety/Performancebalance ; cognition; endurance/activity tolerance; strength; trunk/postural control Cognitive Impairments, BADL Safety/Performanceawarene ss, need for assistance; insight into deficits/self awareness; judgment; problem solving/reasoning Motor: Sitting, Static (Balance)good balance SBA Sitting, Dynamic (Balance)fair balance CGA Wnb-jj-Tzdyt (Balance)poor balance Total A via Faye Plus lift Standing, Static (Balance)poor balance Max A x1 - via Faye Plus Standing, Dynamic (Balance)unable to balance Balance ActivitiesPt sat EOB ~20 minutes throughout session primarily with SB (more content not included)... Normal [facility] Clinical Event Note-Medical Assessmenton 09-28-2021 Clinical Event [...] oil enema alternating with tap water enema [id number] - Bisacodyl suppository QHS Daily - Monitor [...] [facility] 5th floor - F/U with [...] note 45 minutes; Electronic Signatures: Concetta Shi (CATAPULT AND ARRESTING GEAR OFFICER-[employer]) (Signed 28-Sep-2021 14:31) Authored: Clinical Event Note Last Updated: 28-Sep-2021 14:31 by Concetta Shi (CATAPULT AND ARRESTING GEAR OFFICER-[employer]) [facility] Daily Progress Note-Gastroen terologyon 09-28-2021 Daily Progress Note-Gastroenterology Service: Gastroenterology Subjective Data: MORALES LEE is a 46 year old Female who is Hospital Day # 14 and POD #7 for posterior L4-L5 decompression;posterior L4-L5 arthrodesis. No events overnight. Had one bowel movement this am. Otherwise no complaints. Objective Data: Objective Information: T PRBPSpO2 [id number]/6993% Date/Time09/28 4: 8: 8: 8: 8:00 Range(36C [...] 2021 6:00 am000 Sep 27, 2021 10:00 [id number] Sep 27, 2021 2:00 [id number] The Intake and Output Totals for the last 24 hours are: IntakeOutputNet [id number] Physical Exam by System: Constitutional: Constitutional: A&Ox3, [...] tr (more content not included)... Normal [facility] Daily Progress Note-Neurosur jinny 09-28-2021 Daily Progress Note-Neurosurgery Service: Neurosurgery Subjective Data: MORALES LEE is a 46 year old Female who is Hospital Day # 14 and POD #7 for posterior L4-L5 decompression;posterior L4-L5 arthrodesis. Objective Data: Objective Information: T PRBPSpO2 [id number]/4893% Date/Time09/28 4: 4: 4: 4: 4:00 Range(36C - 36.6C ) (72 - 87 ) (15 - 22 ) (92 - 153 )/ (48 - 113 ) (92% - 99% ) As of 27-Sep-2021 22:00:00, patient is on 2 L/min of oxygen via nasal cannula. Pain reported at 09/27 22:00: 0 = None ---- Intake and Output ----- Mn/Dy/Year TimeIntakeOutputNet Sep 26, 2021 10:00 [id number] Sep 26, 2021 2:00 [id number] The Intake and Output Totals for the last 24 hours are: IntakeOutputNet [id number] Physical Exam by System: Neurological: A&Ox3 RUE [...] the note. I personally evaluated the patient [id number] Electronic Signatures: Fidel Maciel (Resident)) (Signed 28-Sep-2021 05:47) Authored: Service, Subjective Data, Objective Data, Assessment and Plan, Note Completion Lex Frederick) (Signed 28-Sep-2021 07:32) Authored: Note Completion Co-Signer: Service, Subjective Data, Objective Data, Assessment and Plan, Note Completion Last Updated: 28-Sep-2021 07:32 by Lex Frederick) Normal [facility] RENAL FUNCTION PANELon 09-28 Albumin [Mass/Vol] 3.1 g/dL Low 3.4 - 5.0 [facility] Comment on above: Performed By: #### R ENAL ####[id number] [place] [address] Anion gap [Moles/Vol] 17 mmol/L Normal 10 - 20 [facility] Comment on above: Performed By: #### R ENAL ####[id number] [place] [address] Calcium [Mass/Vol] 8.4 mg/dL Low 8.6 - 10.6 [facility] Comment on above: Performed By: #### R ENAL ####[id number] [place] [address] Chloride [Moles/Vol] 102 mmol/L Normal 98 - 107 [facility] Comment on above: Performed By: #### R ENAL ####[id number] [place] [address] Creatinine [Mass/Vol] 0.47 mg/dL Low 0.50 - 1.05 [facility] Comment on above: Performed By: #### R ENAL ####[id number] [place] [address] eGFR FEMALE >90 Normal >90 [facility] Comment on above: Result Comment: CALC ULATIONS OF ESTIMATED GFR ARE PERFORMED USING THE 2020 CKD-EPI STUDY REFIT EQUATION WITHOUT THE RACE VARIABLE FOR THE IDMS-TRACEABLE CREATININE METHODS. https://jasn.asnjournals.org/content//ASN.659 1883227 Performed By: #### R ENAL ####[id number] [place] [address] Glucose [Mass/Vol] 74 mg/dL Normal 74 - 99 [facility] Comment on above: Performed By: #### R ENAL ####[id number] [place] [address] HCO3 (Bld) [Moles/Vol] 27 mmol/L Normal 21 - 32 [facility] Comment on above: Performed By: #### R ENAL ####[id number] [place] [address] Phosphate [Mass/Vol] 3.4 mg/dL Normal 2.5 - 4.9 [facility] Comment on above: Result Comment: The performance characteristics of phosphorus testing in heparinized plasma have been validated by the individual laboratory site where testing is performed. Testing on heparinized plasma is not approved by the FDA; however, such approval is not necessary. Performed By: #### R ENAL ####[id number] [place] [address] Potassium [Moles/Vol] 3.7 mmol/L Normal 3.5 - 5.3 [facility] Comment on above: Performed By: #### R ENAL ####[id number] [place] [address] Sodium [Moles/Vol] 142 mmol/L Normal 136 - 145 [facility] Comment on above: Performed By: #### R ENAL ####[id number] [place] [address] Urea nitrogen [Mass/Vol] 6 mg/dL Normal 6 - 23 [facility] Comment on above: Performed By: #### R ENAL ####[id number] [place] [address] Radiologyon 09-28-2021 XR Abdomen AP Normal [facility]-Gastroen terology-[place] [facility] Work Phone: Rehab Note-attemptedon 09-28 Rehab Note-attempted Rehab: 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 Pt stated NO! NO! NO! upon therapists arrival, even /c increased encouragement. Will reattempt as schedule allows. Short Term Goals: Bed Mobility: Date [id number] Bed Mobility: [place] Level Goalminimum assist (75% patients effort) Bed Mobility: Physical Assist Level Goal1-person assist, verbal cues Bed Mobility: Time Frame for Goal2 wks Transfer: Established Transfer: Transfer Type Wztwjjh-xm-gvawr/chair-to -bed; yyn-fa-inbjk/mhivs-ze-vap Transfer: [place] Level Goalmoderate assist (50% patients effort) Transfer: Physical Assist Level Goal1-person assist; verbal cues Transfer: Assistive Device Goalrolling walker Transfer: Time Frame for Goal2 wks Gait: Established [id number] Gait: [place] Level Goalmoderate assist (50% patients effort) Gait: Physical Assist Level1-person assist; verbal cues Gait: Assistive Device Goalrolling walker Gait: Distance Goal15 feet Gait: Time Frame for Goal2 wks Balance: Established [id number] Balance: Goal DetailsSitting EOB 20 minutes with 0-1 UE support, SBA for static sitting, CGA for dynamic. Standing 1 minute with FWW and CGA Electronic Signatures: Yosi Campbell (MACHINE WORKER) (Signed 28-Sep-2021 15:32) Entered: Short Term Goals, Info Authored: Info, Short Term Goals Boone Broussard (PT) (Signed 01-Oct-2021 09:01) Co-Signer: Short Term Goals, Info Last Updated: 01-Oct-2021 09:01 by Boone Broussard (PT) Normal [facility] Rehab Note-attempted Rehab: Info: Mode of Treatmentattempted [...] 15:28 by Silvana Marshall (OT) Normal [facility] Renal Function Panelon 09-28 Albumin BCP dye [...] - 4.9 MG-G astroen terology-[place] 6 [facility] Work Phone: Comment on above: The performance arsalan acteristics of phosphorus testing in heparinized plasma have been validated by the individual laboratory site where testing is performed. Testing on heparinized plasma is not approved by the FDA; however, such approval is not necessary. Potassium [Moles/Vol] 3.7 mmol/L 3.5 - 5.3 MG- Gastroen terology-[place] 6 [facility] Work Phone: Sodium [Moles/Vol] 142 mmol/L 136 - 145 MG-Gas troen terology-[place] 6 [facility] Work Phone: Urea nitrogen [Mass/Vol] 6 mg/dL 6 - 23 MG-Gastroen terology-[place] 6 I Work Phone: Renal Function Panel >90 >90 MG-G astroen terology-[place] 6 [facility] Work Phone: Comment on above: CALCULATIONS OF IVY MATED GFR ARE PERFORMED USING THE 2020 CKD-EPI STUDY REFIT EQUATION WITHOUT THE RACE VARIABLE FOR THE IDMS-TRACEABLE CREATININE METHODS.https://jasn.asnjournals.org/content/ /ASN.9727462775 TH ABDOMEN AP VIEWon 022 TH ABDOMEN AP VIEW Patient Name: MORALES LEE STUDY: ABDOMEN AP VIEW; 09/28/2021 1:22 pm INDICATION: Abd. dist. . COMPARISON: 09/27/2021 abdominal radiograph. ACCESSION NUMBER(S): [id number] ORDERING CLINICIAN: CONCETTA SHI FINDINGS: Two AP [...] as stated. This study was interpreted at [facility], [place], [place]. Electronically signed by: TANIKA SUTTON MD [facility] Consult-Gastroenterologyon 0 09-27-2021 Consult-Gastroenterology Service: Service: [...] admission for post-op pain including a dilaudid MERCHANDISE EXAMINER. Has been on scheduled bowel regimen with [...] penicillin: Unknown Objective: Objective Information: T PRBPSpO2 [id number]/84422% Date/Time09/27 4: 4: 4: 4:00 Range (76 [...] ACDFF, (more content not included)... Normal [facility] Daily Progress Note-Neurosur leonidasyon 09-27-2021 Daily Progress Note-Neurosurgery Service: Neurosurgery Subjective Data: MORALES LEE is a 46 year old Female who is Hospital Day # 13 and POD #6 for posterior L4-L5 decompression;posterior L4-L5 arthrodesis. Objective Data: Objective Information: T PRBPSpO2 [id number]/54864% Date/Time09/26 11:0809/27 4: 4: 4: 4:00 Range(37C [...] 2021 6:00 am000 Sep 26, 2021 10:00 [id number] Sep 26, 2021 2:00 [id number] The Intake and Output Totals for the last 24 hours are: IntakeOutputNet [id number] Physical Exam by System: Neurological: A&Ox3 RUE [...] the note. I personally evaluated the patient [id number] Electronic Signatures: Chaparro Umana (Resident)) (Signed 27-Sep-2021 06:11) Authored: Service, Subjective Data, Objective Data, Assessment and Plan, Note Completion Natalia Palacios) (Signed 08-Oct-2021 14:31) Authored: Note Completion Co-Signer: Service, Subjective Data, Objective Data, Assessment and Plan, Note Completion Last Updated: 08-Oct-2021 14:31 by Natalia Palacios) Normal [facility] MAGNESIUMon 09-27-2021 Magnesium [Mass/Vol] 1.80 mg/dL Normal 1.60 - 2.40 [facility] Comment on above: Performed By: #### C BC #### [facility] [address] [place] [address] Magnesium, Serumon Magnesium [Mass/Vol] 1.80 mg/dL See Below MG-G astroen terology-[place] 6 [facility] Work Phone: Comment on above: Reference Range: 1.6 0 - 2.40 RENAL FUNCTION PANELon 09-27 Albumin [Mass/Vol] 3.3 g/dL Low 3.4 - 5.0 [facility] Comment on above: Performed By: #### R ENAL #### [facility] [address] [place] [address] Anion gap [Moles/Vol] 17 mmol/L Normal 10 - 20 [facility] Comment on above: Performed By: #### R ENAL #### [facility] [address] [place] [address] Calcium [Mass/Vol] 8.5 mg/dL Low 8.6 - 10.6 [facility] Comment on above: Performed By: #### R ENAL #### [facility] [address] [place] [address] Chloride [Moles/Vol] 98 mmol/L Normal 98 - 107 [facility] Comment on above: Performed By: #### R ENAL #### [facility] [address] [place] [address] Creatinine [Mass/Vol] 0.44 mg/dL Low 0.50 - 1.05 [facility] Comment on above: Performed By: #### R ENAL #### [facility] [address] [place] [address] eGFR FEMALE >90 Normal >90 [facility] Comment on above: Result Comment: CALC ULATIONS OF ESTIMATED GFR ARE PERFORMED USING THE 2020 CKD-EPI STUDY REFIT EQUATION WITHOUT THE RACE VARIABLE FOR THE IDMS-TRACEABLE CREATININE METHODS. https://jasn.asnjournals.org/content/ASN.575 2604709 Performed By: #### R ENAL #### [facility] [address] [place] [address] Glucose [Mass/Vol] 91 mg/dL Normal 74 - 99 [facility] Comment on above: Performed By: #### R ENAL #### [facility] [address] [place] [address] HCO3 (Bld) [Moles/Vol] 26 mmol/L Normal 21 - 32 [facility] Comment on above: Performed By: #### R ENAL #### [facility] [address] [place] [address] Phosphate [Mass/Vol] 4.0 mg/dL Normal 2.5 - 4.9 [facility] Comment on above: Result Comment: The performance characteristics of phosphorus testing in heparinized plasma have been validated by the individual laboratory site where testing is performed. Testing on heparinized plasma is not approved by the FDA; however, such approval is not necessary. Performed By: #### R ENAL #### [facility] [address] [place] [address] Potassium [Moles/Vol] 4.1 mmol/L Normal 3.5 - 5.3 [facility] Comment on above: Performed By: #### R ENAL #### [facility] [address] [place] [address] Sodium [Moles/Vol] 137 mmol/L Normal 136 - 145 [facility] Comment on above: Performed By: #### R ENAL #### [facility] [address] [place] [address] Urea nitrogen [Mass/Vol] 6 mg/dL Normal 6 - 23 [facility] Comment on above: Performed By: #### R ENAL #### [facility] [address] [place] [address] Radiologyon 09-27-2021 XR Abdomen AP Normal MG-Gastroen [...] lwell 6 [facility] Work Phone: Chloride [Moles/Vol] 98 mmol/L 98 - 107 MG-G astroen terology-[place] 6 [facility] Work Phone: CO2 [Moles/Vol] 26 mmol/L 21 - 32 MG-Gastro en terology-[place] 6 I Work Phone: Creatinine [Mass/Vol] 0.44 mg/dL below low threshold See Below MG-Gastroen terology-[place] 6 [facility] Work Phone: Comment on above: Reference Range: 0.5 0 - 1.05 Glucose [Mass/Vol] 91 mg/dL 74 - 99 MG-Gas troen terology-[place] 6 [facility] Work Phone: Phosphate [Mass/Vol] 4.0 mg/dL 2.5 [...] RACE VARIABLE FOR THE IDMS-TRACEABLE CREATININE METHODS.https://jasn.asnjournals.org/content/early/ /ASN.0365305076 ABDOMEN AP VIEWon 022 ABDOMEN AP VIEW Patient Name: MORALES LEE STUDY: ABDOMEN AP VIEW; 09/27/2021 2:33 am INDICATION: vomiting, constipation . COMPARISON: None. ACCESSION NUMBER(S): [id number] ORDERING CLINICIAN: FIDEL MACIEL FINDINGS: 2 AP [...] as stated. This study was interpreted at [facility], [place], [place]. Electronically signed by: DWIGHT MOY MD [facility] Daily Progress Note-Neurossaray stearns 09-26-2021 Daily Progress Note-Neurosurgery Service: Neurosurgery Subjective Data: MORALES LEE is a 46 year old Female who is Hospital Day # 12 and POD #5 for posterior L4-L5 decompression;posterior L4-L5 arthrodesis. Objective Data: Objective Information: T PRBPSpO2 [id number]/8299% Date/Time09/25 17: 12:001 17: 17:08 Range (68 - 98 ) (21 - 23 ) (118 - 136 )/ (69 - 82 ) (92% - 99% ) Pain reported at 09/26 3:00: sleeping ---- Intake and Output ----- Mn/Dy/Year TimeIntakeOutputNet Sep 24, 2021 10:00 [id number] Sep 24, 2021 2:00 [id number] Sep 24, 2021 6:00 [id number] The Intake and Output Totals for the last 24 hours are: IntakeOutputNet [id number] Physical Exam by System: Neurological: A&Ox3 RUE [...] the note. I personally evaluated the patient [id number] Electronic Signatures: Jaya Mosquera (Resident)) (Signed 26-Sep-2021 07:08) Authored: Service, Subjective Data, Objective Data, Assessment and Plan, Note Completion Natalia Palacios) (Signed 08-Oct-2021 14:10) Authored: Note Completion Co-Signer: Service, Subjective Data, Objective Data, Assessment and Plan, Note Completion Last Updated: 08-Oct-2021 14:10 by Natalia Palacios) [facility] Clinical Event Note-POD 4 / Abdominal [...] [facility] 5th floor - F/U with [...] plan of care. Electronic Signatures: Concetta Shi (CATAPULT AND ARRESTING GEAR OFFICER-HEALTH [employer]UARY) (Signed 25-Sep-2021 13:30) Authored: Clinical Event Note Last Updated: 25-Sep-2021 13:30 by Concetta Shi (CATAPULT AND ARRESTING GEAR OFFICER-HEALTH [employer]) Normal [facility] Daily Progress Note-Neurossaray stearns 09-25-2021 Daily Progress Note-Neurosurgery Service: Neurosurgery Subjective Data: MORALES LEE is a 46 year old Female who is Hospital Day # 11 and POD #4 for posterior L4-L5 decompression;posterior L4-L5 arthrodesis. Objective Data: Objective Information: T PRBPSpO2 [id number]/6799% Date/Time09/24 16: 16: 16: 16:00 Range (68 - 78 ) (18 - 19 ) (102 - 117 )/ (57 - 73 ) (95% - 99% ) As of 24-Sep-2021 21:40:00, patient is on 2 L/min of oxygen via nasal cannula. Pain reported at 09/24 21:40: 8 = Severe ---- Intake and Output ----- Mn/Dy/Year TimeIntakeOutputNet Sep 23, 2021 10:00 [id number] Sep 23, 2021 6:00 [id number] The Intake and Output Totals for the last 24 hours are: IntakeOutzuni hospitalNet [id number] Physical Exam by System: Neurological: A&Ox3 RUE [...] the note. I personally evaluated the patient [id number] Electronic Signatures: Lex Frederick) (Signed 25-Sep-2021 11:57) Authored: Note Completion Co-Signer: Service, Subjective Data, Objective Data, Assessment and Plan, Note Completion Alfredo Hendrickson (Resident)) (Signed 25-Sep-2021 05:56) Authored: Service, Subjective Data, Objective Data, Assessment and Plan, Note Completion Last Updated: 25-Sep-2021 11:57 by Lex Frederick) [facility] Rehab Egzl-hl-nreuuhfcd - co -tx /c OT to address multidiscipon 09-25-2021 Rehab Bcrk-eq-jxtkjyeoz - co-tx /c OT to address multidiscip Rehab: Info: Disciplinephysical occupational therapy teacher Mode of Treatmentphysical therapy; co-treatment; co-tx /c OT to address multidisciplinary functional needs and maximize pt's safety. Time IN15:05 Time OUT15:59 Total Treatment [id number] Patient in ... at end of sessionbed, [...] scooting/bridging; rolling right; rolling left Roll Left [place] (Bed Mobility)maximum assist (25% patient effort); 2 person assist; verbal cues; nonverbal cues (demo/gesture) Roll Right [place] (Bed Mobility)maximum assist (25% patient effort); 2 person assist; verbal cues; nonverbal cues (demo/gesture) Scoot/Bridge [place] (Bed Mobility)maximum assist (25% patient effort); 2 person assist; nonverbal cues (demo/gesture); verbal cues Hmwlsp-ct-Wtv [place] (Bed Mobility)maximum assist (25% patient effort); 2 person assist; verbal cues; nonverbal cues (demo/gesture) Jud-zz-Bhdryh [place] (Bed Mobility)maximum assist (25% patient effort); 2 [...] unable to get to full standing. Sit-Stand [place] (Transfers)maximum assist (25% patient effort); verbal cues; nonverbal cues (demo/gesture); 2-3 persona assist Sit-Stand Assistive Device (Transfers)walker, front-wheeled Stand-Sit [place] (Transfers)maximum assist (25% patient effort); nonverbal cues [...] Score8 Short Term Goals: Bed Mobility: Date [id number] Bed Mobility: [place] Level Goalminimum assist (75% patients effort) Bed Mobility: Physical Assist Level Goal1-person assist, verbal cues Bed Mobility: Time Frame for Goal2 wks Transfer: Established [id number] Transfer: Transfer Type Tvsrwwf-cx-whfvi/chair-to -bed; wkp-me-wwkim/cybmj-em-csr Transfer: [place] Level Goalmoderate assist (50% patients effort) Transfer: Physical Assist Level Goal1-person assist; verbal cues Transfer: Assistive Device Goalrolling walker Transfer: Time Frame for Goal2 wks Gait: Established Gait: [place] Level Goalmoderate assist (50% patients effort) Gait: [...] goals is gradual Electronic Signatures: Yosi Campbell (MACHINE WORKER) (Signed 25-Sep-2021 16:59) Entered: Outcome Summary, Short Term Goals, Sensory, TherEx, Outcomes Tools, Info, Mobility/Tone Authored: Short Term Goals, Outcome Summary, TherEx, Outcomes Tools, Info, Mobility/Tone, Sensory Boone Broussard (PT) (Signed 01-Oct-2021 09:01) Co-Signer: Outcome Summary, Short Term Goals, Sensory, TherEx (more content not included)... Normal [facility] Rehab Note-occupational nurse apy - Partial co-tx with PT to tue09-25-2021 Rehab Note-occupational therapy - Partial co-tx with PT to Rehab: Info: Disciplineoccupational therapist Mode of Treatmentoccupational therapy; Partial co-tx with PT to maximize pt's mobility and safety. Time IN15:03 Time OUT15:56 Total Treatment [id number] Patient in ... at end of sessionbed, [...] sit to supine; rolling right Roll Left [place] (Bed Mobility)Pt required assist to bend BLE at knees and to initiate turn at shoulders and hips, verbal cues for grasp on bed rail, technique, direction follow, and encouragement.; set up; verbal cues; maximum assist (25% patient effort); 2 person assist Roll Right [place] (Bed Mobility)Pt required assist to bend BLE at knees and to initiate turn at shoulders and hips, verbal cues for grasp on bed rail, technique, direction follow, and encouragement.; set up; verbal cues; maximum assist (25% patient effort); 2 person assist Scoot/Bridge [place] (Bed Mobility)boost HOB; set up; verbal cues; maximum assist (25% patient effort); 2 person assist Zpyrmv-wp-Eka [place] (Bed Mobility)HOB elevated; set up; verbal cues; maximum assist (25% patient effort); 2 person assist Vtx-mk-Vfyitx [place] (Bed Mobility)HOB elevated; set up; verbal cues; maximum assist (25% patient effort); 2 person assist Assistive Device (Bed Mobility)bed rails; draw sheet Transfer Assessment/Interventionss it to stand transfer Sit-Stand [place] (Transfers)set up; verbal cues; maximum assist (25% patient effort); x 2-3 assist Safety Issues Impacting Function (Mobility)ability to follow commands; awareness of need for assistance; insight into deficits/self awareness; judgment; problem solving Impairments Impacting Function (Mobility)balance; cognition; endurance/activity tolerance; pain; strength; postural/trunk control ADL: BADL Assessment/Interventionto ileting; feeding; grooming; lower body dressing; upper body dressing; bathing [place] Level (Bathing)set up; verbal cues; moderate assist (50% patient effort); 1 person assist Comment (Bathing)anticipated due to impaired balance, strength, and pain. [place] Level (Upper Body Dressing)set up; verbal cues; moderate assist (50% patient effort) Comment (Upper Body Dressing)anticipated due to impaired balance, strength, and pain. [place] Level (Lower Body Dressing)don; socks; dependent (less than 25% patient effort) Position (Lower Body Dressing)supine [place] Level (Grooming)set up; contact guard Comment (Grooming)anticipated due to impaired balance, strength, and pain. [place] Level (Feeding)set up; modified independence Comment (Feeding)anticipated [place] Level (Toileting)dependent (less than 25% patient effort); purewick Impairments, BADL Safety/Performancebalance ; cognition; endurance/activity tolerance; strength; trunk/postural control Cognitive Impairments, BADL Safety/Performanceawarene ss, need for assistance; insight into deficits/self awareness; judgment; problem solving/reasoning Motor: Sitting, Static (Balance)good balance SBA Sitting, Dynamic (Balance)fair balance CGA Xok-fi-Lpymb (Balance)poor balance Max A x 2-3 - attempted Standing, Static (Balance)unable to balance Standing, Dynamic (Balance)unable to balance Balance ActivitiesPt sat EOB ~30 minutes with SBA/CGA for safety. Pt demonstrated good sitting balance and trunk control. Pt attempted STS transfers 3x with (more content not included)... Normal [facility] Daily Progress Note-Neurossaray stearns 09-24-2021 Daily Progress Note-Neurosurgery Service: Neurosurgery Subjective Data: MORALES LEE Elena is a 46 year old Female who is Hospital Day # 10 and POD #3 for posterior L4-L5 decompression;posterior L4-L5 arthrodesis. Objective Data: Objective Information: T PRBPSpO2 [id number]/5499% Date/Time09/23 20:481/19 20:481/19 20:481/ 20:481 20:48 Range(35.5C - 36.1C ) (66 - 75 ) (16 - 19 ) (90 - 118 )/ (54 - 75 ) (98% - 99% ) As of 23-Sep-2021 22:43:00, patient is on 2 L/min of oxygen via nasal cannula. ---- Intake and Output ----- Mn[facility]Dy/[facility] Sep 22, 2021 10:00 [id number] Sep 22, 2021 2:00 [id number] Sep 22, 2021 6:00 [id number] The Intake and Output Totals for the last 24 hours are: IntakeOutzuni hospitalNet [id number] Physical Exam by System: Neurological: A&Ox3 RUE [...] the note. I personally evaluated the patient [id number] Comments/ Additional Findings Doing well. Kyphotic posture and Back Pain from instability and traumatic chance fracture significantly improved as compared to preop. She developed weakness involving ankle PF/DF following church of alignment from buckling of hypertrophic ligamentum [...] for ambulation and PT for now and fdc if the weakness fails to improve over [...] the (more content not included)... Normal [facility] MAGNESIUMon 09-24-2021 Magnesium [Mass/Vol] 1.71 mg/dL Normal 1.60 - 2.40 [facility] Comment on above: Performed By: #### A FPA3 #### [facility] [address] [place] [address] Magnesium, Serumon 2 Magnesium [Mass/Vol] 1.71 mg/dL See Below MG-G tiffany carcamo-Rosendo moura 6 [facility] Work Phone: Comment on above: Reference Range: 1.6 0 - 2.40 RENAL FUNCTION PANELon 09-24 Albumin [Mass/Vol] 2.6 g/dL Low 3.4 - 5.0 [facility] Comment on above: Performed By: #### R ENAL ####[id number] [place] [address] Anion gap [Moles/Vol] 10 mmol/L Normal - [facility] Comment on above: Performed By: #### R ENAL ####[id number] [place] [address] Calcium [Mass/Vol] 7.7 mg/dL Low 8.6 - 10.6 [facility] Comment on above: Performed By: #### R ENAL ####[id number] [place] [address] Chloride [Moles/Vol] 108 mmol/L High 98 - 107 [facility] Comment on above: Performed By: #### R ENAL ####[id number] [place] [address] Creatinine [Mass/Vol] 0.39 mg/dL Low 0.50 - 1.05 [facility] Comment on above: Performed By: #### R ENAL ####[id number] [place] [address] eGFR FEMALE >90 Normal >90 [facility] Comment on above: Result Comment: CALC ULATIONS OF ESTIMATED GFR ARE PERFORMED USING THE 2020 CKD-EPI STUDY REFIT EQUATION WITHOUT THE RACE VARIABLE FOR THE IDMS-TRACEABLE CREATININE METHODS. https://jasn.asnjournals.org/content/early//ASN.664 7949588 Performed By: #### R ENAL ####[id number] [place] [address] Glucose [Mass/Vol] 92 mg/dL Normal 74 - 99 [facility] Comment on above: Performed By: #### R ENAL ####[id number] [place] [address] HCO3 (Bld) [Moles/Vol] 29 mmol/L Normal 21 - 32 [facility] Comment on above: Performed By: #### R ENAL ####[id number] [place] [address] Phosphate [Mass/Vol] 3.3 mg/dL Normal 2.5 - 4.9 [facility] Comment on above: Result Comment: The performance characteristics of phosphorus testing in heparinized plasma have been validated by the individual laboratory site where testing is performed. Testing on heparinized plasma is not approved by the FDA; however, such approval is not necessary. Performed By: #### R ENAL ####[id number] [place] [address] Potassium [Moles/Vol] 3.9 mmol/L Normal 3.5 - 5.3 [facility] Comment on above: Performed By: #### R ENAL ####[id number] [place] [address] Sodium [Moles/Vol] 143 mmol/L Normal 136 - 145 [facility] Comment on above: Performed By: #### R ENAL ####[id number] [place] [address] Urea nitrogen [Mass/Vol] 5 mg/dL Low 6 - 23 [facility] Comment on above: Performed By: #### R ENAL ####[id number] [place] [address] Rehab Note-attemptedon 09-24 Rehab Note-attempted Rehab: Info: Mode of Treatmentattempted Time IN15:00 Reason Treatment Not Performedpatient/family declined treatment; Pt declined participation in OT treatment stating she was on a very important call that she needed to take. Electronic Signatures: Silvana Marshall (OT) (Signed 24-Sep-2021 15:29) Authored: Info Last Updated: 24-Sep-2021 15:29 by Silvana Marshall (OT) Normal [facility] Rehab Note-physical therapyo n 09-24-2021 Rehab Note-physical [...] 15:07 by Boone Broussard (PT) Normal [facility] Renal Function Panelon 09-24 Albumin BCP dye [...] Function Panel >90 >90 MG-G astroen terology-Rosendo moura 6 [facility] Work Phone: Comment on above: CALCULATIONS OF IVY MATED GFR ARE PERFORMED USING THE 2020 CKD-EPI STUDY REFIT EQUATION WITHOUT THE RACE VARIABLE FOR THE IDMS-TRACEABLE CREATININE METHODS.https://jasn.asnjournals.org/content/ /ASN.7483092329 CBCon 09-23-2021 Erythrocyte distribution width (RBC) [Ratio] 13.1 % Normal 11.5 - 14.5 [facility] Comment on above: Performed By: #### C BC ####[id number] [place] [address] Hematocrit (Bld) [Volume fraction] 30.5 % Low 36.0 - 46.0 [facility] Comment on above: Performed By: #### C BC ####[id number] [place] [address] Hemoglobin (Bld) [Mass/Vol] 9.9 g/dL Low 12.0 - 16.0 [facility] Comment on above: Performed By: #### C BC ####[id number] [place] [address] MCHC (RBC) [Mass/Vol] 32.5 g/dL Normal 32.0 - 36.0 [facility] Comment on above: Performed By: #### C BC ####[id number] [place] [address] MCV (RBC) [Entitic vol] 92 fL Normal 80 - 100 [facility] Comment on above: Performed By: #### C BC ####[id number] [place] [address] NUCLEATED RBC 0.0 /100 WBC Normal 0.0-0.0 [facility] Comment on above: Performed By: #### C BC ####[id number] [place] [address] Platelets (Bld) [#/Vol] 244 10*3/uL Normal 150 - 450 [facility] Comment on above: Performed By: #### C BC ####[id number] [place] [address] RBC 3.33 x10E12/L Low 4.00 - 5.20 [facility] Comment on above: Performed By: #### C BC ####[id number] [place] [address] WBC (Bld) [#/Vol] 8.6 10*3/uL Normal 4.4 - 11.3 [facility] Comment on above: Performed By: #### C BC ####[id number] [place] [address] CBC AND DIFFERENTIALon 09-23 % AUTOMATED IMMATURE GRAN 0.4 % Normal 0.0 - 0.9 [facility] Comment on above: Result Comment: Jaleesa ture Granulocyte Count (IG) includes promyelocytes, myelocytes and metamyelocytes but does not include bands. Percent differential counts (%) should be interpreted in the context of the absolute cell counts (cells/L). Performed By: #### C BC #### [facility] [address] [place] [address] Basophils (Bld) [#/Vol] 0.03 10*3/uL Normal 0.00 - 0.10 [facility] Comment on above: Performed By: #### C BC #### [facility] [address] [place] [address] Basophils/100 WBC (Bld) 0.4 % Normal 0.0 - 2.0 [facility] Comment on above: Performed By: #### C BC #### [facility] [address] [place] [address] Eosinophils (Bld) [#/Vol] 0.27 10*3/uL Normal 0.00 - 0.70 [facility] Comment on above: Performed By: #### C BC #### [facility] [address] [place] [address] Eosinophils/100 WBC (Bld) 3.6 % Normal 0.0 - 6.0 [facility] Comment on above: Performed By: #### C BC #### [facility] [address] [place] [address] Erythrocyte distribution width (RBC) [Ratio] 13.2 % Normal 11.5 - 14.5 [facility] Comment on above: Performed By: #### C BC #### [facility] [address] [place] [address] Hematocrit (Bld) [Volume fraction] 30.9 % Low 36.0 - 46.0 [facility] Comment on above: Performed By: #### C BC #### [facility] [address] [place] [address] Hemoglobin (Bld) [Mass/Vol] 10.4 g/dL Low 12.0 - 16.0 [facility] Comment on above: Performed By: #### C BC #### [facility] [address] [place] [address] Lymphocytes (Bld) [#/Vol] 2.41 10*3/uL Normal 1.20 - 4.80 [facility] Comment on above: Performed By: #### C BC #### [facility] [address] [place] [address] Lymphocytes/100 WBC (Bld) 31.9 % Normal 13.0 - 44.0 [facility] Comment on above: Performed By: #### C BC #### [facility] [address] [place] [address] MCHC (RBC) [Mass/Vol] 33.7 g/dL Normal 32.0 - 36.0 [facility] Comment on above: Performed By: #### C BC #### [facility] [address] [place] [address] MCV (RBC) [Entitic vol] 91 fL Normal 80 - 100 [facility] Comment on above: Performed By: #### C BC #### [facility] [address] [place] [address] Monocytes (Bld) [#/Vol] 0.49 10*3/uL Normal 0.10 - 1.00 [facility] Comment on above: Performed By: #### C BC #### [facility] [address] [place] [address] Monocytes/100 WBC (Bld) 6.5 % Normal 2.0 - 10.0 [facility] Comment on above: Performed By: #### C BC #### [facility] [address] [place] [address] Neutrophils (Bld) [#/Vol] 4.32 10*3/uL Normal 1.20 - 7.70 [facility] Comment on above: Performed By: #### C BC #### [facility] [address] [place] [address] Neutrophils/100 WBC (Bld) 57.2 % Normal 40.0 - 80.0 [facility] Comment on above: Performed By: #### C BC #### [facility] [address] [place] [address] NUCLEATED RBC 0.0 /100 WBC Normal 0.0-0.0 [facility] Comment on above: Performed By: #### C BC #### [facility] [address] [place] [address] Platelets (Bld) [#/Vol] 228 10*3/uL Normal 150 - 450 [facility] Comment on above: Performed By: #### C BC #### [facility] [address] [place] [address] RBC 3.39 x10E12/L Low 4.00 - 5.20 [facility] Comment on above: Performed By: #### C BC #### [facility] [address] [place] [address] WBC (Bld) [#/Vol] 7.6 10*3/uL Normal 4.4 - 11.3 [facility] Comment on above: Performed By: #### C BC #### [facility] [address] [place] [address] Complete Blood Count + Diffe vidya 09-23-2021 [...] - 11.3 MG-Gas troen terology-[place] 6 [facility] Work Phone: Complete Blood Count + Differential 0.03 {x10E9/L} See Below MG-Gastroen terology-Rosendo [place]well 6 [facility] Work Phone: Comment on above: Reference Range: 0.0 0 - 0.10 Complete Blood Count + Differential 0.27 {x10E9/L} See Below MG-Gastroen terology-[place]endo [place] 6 [facility] Work Phone: Comment on above: Reference Range: 0.0 0 - 0.70 Complete Blood Count + Differential 0.49 {x10E9/L} See Below MG-Gastroen terology-Rosendo [place]well 6 [facility] Work Phone: Comment on above: Reference Range: 0.1 0 - 1.00 Complete Blood Count + Differential 2.41 {x10E9/L} See Below MG-Gastroen terology-[place]endo [place] 6 [facility] Work Phone: Comment on above: Reference Range: 1.2 0 - 4.80 Complete Blood Count + Differential 4.32 {x10E9/L} See Below MG-Gastroen terology-[place]endo [place] 6 [facility] Work Phone: Comment on above: Reference Range: 1.2 0 - 7.70 Complete Blood Count + Differential 3.6 % 0.0 - 6.0 MG-Gastroen terology-[place] 6 [facility] Work Phone: Complete Blood Count + Differential 0.4 % 0.0 - 0.9 MG-Gastroen terology-[place] 6 [facility] Work Phone: Comment on above: [...] threshold See Below MG-Gastroen terology-Rosendo gretaell 6 [facility] Work Phone: Comment on above: Reference Range: 12. 0 - 16.0 MCHC (RBC) [Mass/Vol] 32.5 g/dL See Below MG- Gastroen terology-Rosendo [facility] 6 I Work Phone: Comment on above: Reference Range: 32. 0 - 36.0 MCV (RBC) [Entitic vol] 92 fL 80 - 100 M G-Gastroen terology-Rosendo [facility] 6 [facility] Work Phone: Platelets (Bld) [#/Vol] 244 10*3/uL 150 - 450 MG-Gastroen terology-Rosendo [facility] 6 [facility] Work Phone: RBC (Bld) [#/Vol] 3.33 {x10E12/L} below low threshold See Below MG-Gastroen terology-[place]endo ell 6 I Work Phone: Comment on above: Reference Range: 4.0 0 - 5.20 WBC (Bld) [#/Vol] 8.6 10*3/uL 4.4 - 11.3 MG-Gas troen terology-Rosendo [facility] 6 [facility] Work Phone: MAGNESIUMon 09-23-2021 Magnesium [Mass/Vol] 1.68 mg/dL Normal 1.60 - 2.40 [facility] Comment on above: Performed By: #### C #### [facility] [address] [place] [address] Magnesium, Serumon Magnesium [Mass/Vol] 1.68 mg/dL See [...] (Advanced Practice Nurse) done by Emma Izaguirre ([facility]) Discharge - Partial Reconciliation: 23-Sep-2021 13:21 by: Emma Izaguirre ([facility]) Discharge - Partial Reconciliation: 24-Sep-2021 10:12 by: Emma Izaguirre ([facility]) Discharge - Partial Reconciliation: 30-Sep-2021 14:12 by: Concetta Shi ([facility]) Discharge - Partial Reconciliation: 30-Sep-2021 14:14 by: Concetta Shi ([facility]) Discharge - Reconciliation: 30-Sep-2021 14:24 by: Concetta Shi ([facility]) Discharge - Reset to Incomplete: 02-Oct-2021 15:36 by: Emma Izaguirre ([facility]) Discharge - Reconciliation: 02-Oct-2021 15:40 by: Emma Izaguirre ([facility]) Discharge - Reset to Incomplete: 02-Oct-2021 15:57 by: Emma Izaguirre ([facility]) Discharge - Reconciliation: 02-Oct-2021 15:58 by: Emma Izaguirre ([facility]) Home Medications EnteredHOME MEDICATIONS AT [...] required (more content not included)... Normal [facility] PATH REVIEW-IMMUNOHEMATOLOGY on 09-23-2021 PATH REV-IMMUNOHEMOTOL LETA Normal [facility] Comment on above: Result Comment: By h [...] FPA3 #### [facility] [address] [place] [address] RENAL FUNCTION PANELon 09-23 Albumin [Mass/Vol] 2.7 g/dL Low 3.4 - 5.0 [facility] Comment on above: Performed By: #### V FPA3 #### [facility] [address] [place] [address] Anion gap [Moles/Vol] 10 mmol/L Normal 10 - 20 [facility] Comment on above: Performed By: #### V FPA3 #### [facility] [address] [place] [address] Calcium [Mass/Vol] 7.9 mg/dL Low 8.6 - 10.6 [facility] Comment on above: Performed By: #### V FPA3 #### [facility] [address] [place] [address] Chloride [Moles/Vol] 108 mmol/L High 98 - 107 [facility] Comment on above: Performed By: #### V FPA3 #### [facility] [address] [place] [address] Creatinine [Mass/Vol] 0.39 mg/dL Low 0.50 - 1.05 [facility] Comment on above: Performed By: #### V FPA3 #### [facility] [address] [place] [address] eGFR FEMALE >90 Normal >90 [facility] Comment on above: Result Comment: CALC ULATIONS OF ESTIMATED GFR ARE PERFORMED USING THE 2020 CKD-EPI STUDY REFIT EQUATION WITHOUT THE RACE VARIABLE FOR THE IDMS-TRACEABLE CREATININE METHODS. https://jasn.asnjournals.org/content//ASN.109 1923817 Performed By: #### V FPA3 #### [facility] [address] [place] [address] Glucose [Mass/Vol] 87 mg/dL Normal 74 - 99 [facility] Comment on above: Performed By: #### V FPA3 #### [facility] [address] [place] [address] HCO3 (Bld) [Moles/Vol] 29 mmol/L Normal 21 - 32 [facility] Comment on above: Performed By: #### V FPA3 #### [facility] [address] [place] [address] Phosphate [Mass/Vol] 2.7 mg/dL Normal 2.5 - 4.9 [facility] Comment on above: Result Comment: The performance characteristics of phosphorus testing in heparinized plasma have been validated by the individual laboratory site where testing is performed. Testing on heparinized plasma is not approved by the FDA; however, such approval is not necessary. Performed By: #### V FPA3 #### [facility] [address] [place] [address] Potassium [Moles/Vol] 3.6 mmol/L Normal 3.5 - 5.3 [facility] Comment on above: Performed By: #### V FPA3 #### [facility] [address] [place] [address] Sodium [Moles/Vol] 143 mmol/L Normal 136 - 145 [facility] Comment on above: Performed By: #### V FPA3 #### [facility] [address] [place] [address] Urea nitrogen [Mass/Vol] 9 mg/dL Normal 6 - 23 [facility] Comment on above: Performed By: #### V FPA3 #### [facility] [address] [place] [address] Rehab Note-individual therap yon 09-23-2021 Rehab Note-individual therapy Rehab: Info: Disciplinephysical therapist Mode of Treatmentphysical therapy; individual therapy Time IN14:50 Time OUT15:29 Total Treatment [id number] Patient in ... at end of sessionbed, [...] sit to supine; rolling right Roll Left [place] (Bed Mobility)verbal cues; maximum assist (25% patient effort); 1 person assist Roll Right [place] (Bed Mobility)maximum assist (25% patient effort); verbal cues; 1 person assist Scoot/Bridge [place] (Bed Mobility)verbal cues; maximum assist (25% patient effort); 2 person assist; boost HOB Tyhykt-as-Jfa [place] (Bed Mobility)verbal cues; maximum assist (25% patient effort); 1 person assist Ksl-ii-Dsyeux [place] (Bed Mobility)set up; verbal cues; maximum assist (25% patient effort); 1 person assist Assistive Device (Bed Mobility)bed rails; draw sheet Transfer Assessment/Interventionss it to stand transfer; stand to sit transfer Sit-Stand [place] (Transfers)2 person assist; moderate assist (50% patient effort) Sit-Stand Assistive Device (Transfers)B arm-in-arm assist Stand-Sit [place] (Transfers)2 person assist; moderate assist (50% patient [...] 15:50 by Boone Broussard (PT) Normal [facility] Renal Function Panelon 09-23 Albumin BCP dye [...] RACE VARIABLE FOR THE IDMS-TRACEABLE CREATININE METHODS.https://jasn.asnjournals.org/content/ /ASN.4436547200 ANTIBODY IDENT.on 09-22-2021 ANTIBODY IDENT. Anti-E Normal [facility] Comment on above: Performed By: #### V FPA3 #### [facility] [address] [place] [address] CBCon 09-22-2021 Erythrocyte distribution width (RBC) [Ratio] 13.2 % Normal 11.5 - 14.5 [facility] Comment on above: Performed By: #### V FPA3 #### [facility] [address] [place] [address] Hematocrit (Bld) [Volume fraction] 30.6 % Low 36.0 - 46.0 [facility] Comment on above: Performed By: #### V FPA3 #### [facility] [address] [place] [address] Hemoglobin (Bld) [Mass/Vol] 10.2 g/dL Low 12.0 - 16.0 [facility] Comment on above: Performed By: #### V FPA3 #### [facility] [address] [place] [address] MCHC (RBC) [Mass/Vol] 33.3 g/dL Normal 32.0 - 36.0 [facility] Comment on above: Performed By: #### V FPA3 #### [facility] [address] [place] [address] MCV (RBC) [Entitic vol] 91 fL Normal 80 - 100 [facility] Comment on above: Performed By: #### V FPA3 #### [facility] [address] [place] [address] NUCLEATED RBC 0.0 /100 WBC Normal 0.0-0.0 [facility] Comment on above: Performed By: #### V FPA3 #### [facility] [address] [place] [address] Platelets (Bld) [#/Vol] 215 10*3/uL Normal 150 - 450 [facility] Comment on above: Performed By: #### V FPA3 #### [facility] [address] [place] [address] RBC 3.37 x10E12/L Low 4.00 - 5.20 [facility] Comment on above: Performed By: #### V FPA3 #### [facility] [address] [place] [address] WBC (Bld) [#/Vol] 9.6 10*3/uL Normal 4.4 - 11.3 [facility] Comment on above: Performed By: #### V FPA3 #### [facility] [address] [place] [address] CBC AND DIFFERENTIALon 09-22 % AUTOMATED IMMATURE GRAN 0.4 % Normal 0.0 - 0.9 [facility] Comment on above: Result Comment: Jaleesa ture Granulocyte Count (IG) includes promyelocytes, myelocytes and metamyelocytes but does not include bands. Percent differential counts (%) should be interpreted in the context of the absolute cell counts (cells/L). Performed By: #### C BCDF ####[id number] [place] [address] Basophils (Bld) [#/Vol] 0.02 10*3/uL Normal 0.00 - 0.10 [facility] Comment on above: Performed By: #### C BCDF ####[id number] [place] [address] Basophils/100 WBC (Bld) 0.2 % Normal 0.0 - 2.0 [facility] Comment on above: Performed By: #### C BCDF ####[id number] [place] [address] Eosinophils (Bld) [#/Vol] 0.04 10*3/uL Normal 0.00 - 0.70 [facility] Comment on above: Performed By: #### C BCDF ####[id number] [place] [address] Eosinophils/100 WBC (Bld) 0.4 % Normal 0.0 - 6.0 [facility] Comment on above: Performed By: #### C BCDF ####[id number] [place] [address] Erythrocyte distribution width (RBC) [Ratio] 13.2 % Normal 11.5 - 14.5 [facility] Comment on above: Performed By: #### C BCDF ####[id number] [place] [address] Hematocrit (Bld) [Volume fraction] 30.6 % Low 36.0 - 46.0 [facility] Comment on above: Performed By: #### C BCDF ####[id number] [place] [address] Hemoglobin (Bld) [Mass/Vol] 10.3 g/dL Low 12.0 - 16.0 [facility] Comment on above: Performed By: #### C BCDF ####[id number] [place] [address] Lymphocytes (Bld) [#/Vol] 2.19 10*3/uL Normal 1.20 - 4.80 [facility] Comment on above: Performed By: #### C BCDF ####[id number] [place] [address] Lymphocytes/100 WBC (Bld) 19.9 % Normal 13.0 - 44.0 [facility] Comment on above: Performed By: #### C BCDF ####[id number] [place] [address] MCHC (RBC) [Mass/Vol] 33.7 g/dL Normal 32.0 - 36.0 [facility] Comment on above: Performed By: #### C BCDF ####[id number] [place] [address] MCV (RBC) [Entitic vol] 90 fL Normal 80 - 100 [facility] Comment on above: Performed By: #### C BCDF ####[id number] [place] [address] Monocytes (Bld) [#/Vol] 0.71 10*3/uL Normal 0.10 - 1.00 [facility] Comment on above: Performed By: #### C BCDF ####[id number] [place] [address] Monocytes/100 WBC (Bld) 6.5 % Normal 2.0 - 10.0 [facility] Comment on above: Performed By: #### C BCDF ####[id number] [place] [address] Neutrophils (Bld) [#/Vol] 7.98 10*3/uL High 1.20 - 7.70 [facility] Comment on above: Performed By: #### C BCDF ####[id number] [place] [address] Neutrophils/100 WBC (Bld) 72.6 % Normal 40.0 - 80.0 [facility] Comment on above: Performed By: #### C BCDF ####[id number] [place] [address] NUCLEATED RBC 0.0 /100 WBC Normal 0.0-0.0 [facility] Comment on above: Performed By: #### C BCDF ####[id number] [place] [address] Platelets (Bld) [#/Vol] 242 10*3/uL Normal 150 - 450 [facility] Comment on above: Performed By: #### C BCDF ####[id number] [place] [address] RBC 3.39 x10E12/L Low 4.00 - 5.20 [facility] Comment on above: Performed By: #### C BCDF ####[id number] [place] [address] WBC (Bld) [#/Vol] 11.0 10*3/uL Normal 4.4 - 11.3 [facility] Comment on above: Performed By: #### C BCDF ####[id number] [place] [address] Complete Blood Count + Diffe rentialon 09-22-2021 [...] (Bld) 19.9 % See Below MG-Gastroen terology-[place] 6 [facility] Work Phone: Comment on above: Reference Range: 13. 0 - 44.0 MCHC (RBC) [Mass/Vol] 33.7 g/dL See Below MG- Gastroen terology-[place] 6 I Work Phone: Comment on above: Reference Range: 32. 0 - 36.0 MCV (RBC) [Entitic vol] 90 fL 80 - 100 M G-Gastroen terology-[place] 6 [facility] Work Phone: Monocytes/100 WBC (Bld) 6.5 % [...] threshold See Below MG-Gastroen terology-[place] 6 [facility] Work Phone: Comment on above: Reference Range: 4.0 0 - 5.20 WBC (Bld) [#/Vol] 11.0 10*3/uL 4.4 - 11.3 MG-Ga stroen terology-Rosendo [facility] 6 [facility] Work Phone: Complete Blood Count + Differential 0.4 % 0.0 - 0.9 MG-Gastroen terology-[place] 6 [facility] Work Phone: Comment on above: Immature Granulocyte Count (IG) includes promyelocytes, myelocytes and metamyelocytes but does not include bands. Percent differential counts (%) should be interpreted in the context of the absolute cell counts (cells/L). Complete Blood Count + Differential 0.0 {/100_WBC} 0.0-0.0 MG-Gastroen terology-Rosendo [facility] 6 [facility] Work Phone: Complete Blood Count + Differential 0.02 {x10E9/L} See Below MG-Gastroen terology-Rosendo [facility] 6 [facility] Work Phone: Comment on above: Reference Range: 0.0 0 - 0.10 Complete Blood Count + Differential 0.04 {x10E9/L} See Below MG-Gastroen terology-[place] 6 [facility] Work Phone: Comment on above: Reference Range: 0.0 0 - 0.70 Complete Blood Count + Differential 0.71 {x10E9/L} See Below MG-Gastroen terology-[place] 6 [facility] Work Phone: Comment on above: Reference Range: 0.1 0 - 1.00 Complete Blood Count + Differential 2.19 {x10E9/L} See Below MG-Gastroen terology-[place] 6 [facility] Work Phone: Comment on above: Reference Range: 1.2 0 - 4.80 Complete Blood Count + Differential 7.98 {x10E9/L} above high threshold See Below MG-Gastroen terology-[place]endo [place]well 6 [facility] Work Phone: Comment on above: Reference Range: 1.2 0 - 7.70 Cult, Urineon 09-22-2021 Bacteria identified Cx Nom (U) MG-Gastroarabella carcamo-Rosendo lwmiquel 6 [facility] Work Phone: Daily Progress Note - Psychi atryon 09-22-2021 Daily Progress Note - Psychiatry Subjective Data: MORALES LEE is a 46 year old Female who is Hospital Day # 8. Pt seen lying in bed this morning, with at bedside. She is currently on MERCHANDISE EXAMINER for pain, and reports being tired this [...] this time. Objective: Objective Information: T PRBPSpO2 [id number]/5792% Date/Time1 0:001/18 8:001/18 8:001/18 8:001/18 8:00 Range(36.3C - [...] Fair. Medications: Continuous Medications ------- 1. HYDROmorphone MERCHANDISE EXAMINER 25 mg/ NaCL 0.9% 50 mL: 2.6 mg/hr IV MERCHANDISE EXAMINER 2. Sodium Chloride 0.9% Infusion: 1000 mL [...] Suboxone (more content not included)... Normal [facility] Daily Progress Note-Neurossaray stearns 09-22-2021 Daily Progress Note-Neurosurgery Service: Neurosurgery Subjective Data: MORALES LEE is a 46 year old Female who is Hospital Day # 8 and POD #1 for posterior L4-L5 decompression;posterior L4-L5 arthrodesis. Objective Data: Objective Information: T PRBPSpO2 [id number]/5895% Date/Time09/22 0:001 0:001 0:001/18 0:001/18 0:00 Range(36.2C - 36.8C ) (82 - 109 ) (12 - 20 ) (85 - 132 )/ (49 - 89 ) (94% - 100% ) As of 21-Sep-2021 17:00:00, patient is on 4 L/min of oxygen via nasal cannula. Pain reported at 09/21 16:33: 5 = Moderate ---- Intake and Output ----- Mn/Dy/Year TimeIntakeOutputNet Sep 20, 2021 10:00 [id number] Sep 20, 2021 6:00 [id number] The Intake and Output Totals for the last 24 hours are: IntakeOutputNet [id number] Physical Exam by System: Neurological: A&Ox3 RUE [...] Chronic pain recs- intra-op ketamine, meloxicam post-op, MERCHANDISE EXAMINER until good PT eval, Suboxone as OP [...] the note. I personally evaluated the patient [id number] Electronic Signatures: Fidel Maciel (Resident)) (Signed 22-Sep-2021 00:35) Authored: Service, Subjective Data, Objective Data, Assessment and Plan, Note Completion Lex Frederick) (Signed 22-Sep-2021 10:31) Authored: Note Completion Co-Signer: Service, Subjective Data, Objective Data, Assessment and Plan, Note Completion Last Updated: 22-Sep-2021 10:31 by Lex Frederick) [facility] Discharge [id number] 09-22- 022 Discharge Profile2 Discharge Orders: Anticipated Discharge Date: Anticipated Discharge [id number] Problem List: Additional Dx: Spinal stenosis of [...] Please call your Neurosurgeon's office (Dr. Frederick [phone]) if you have any questions. -If you [...] Acetamin (more content not included)... Normal [facility] LACTATEon 09-22-2021 Lactate [Moles/Vol] 0.8 mmol/L Normal 0.4 - 2.0 [facility] Comment on above: Result Comment: Trina puncture immediately after or during the administration of Metamizole may lead to falsely low results. Testing should be performed immediately prior to Metamizole dosing. Performed By: #### C BC #### [facility] [address] [place] [address] Laboratory - Hematology and Cell countson 09-22-2021 Erythrocyte distribution width (RBC) [Ratio] 13.2 % See Below MG-Gastroen terology-[facility] Work Phone: Comment on above: Reference Range: [...] troen terology-Ros[facility] ell 6 I Work Phone: Lactate, Levelon 09-22-2021 [...] safety. Time IN10:50 Time OUT11:40 Total Treatment [id number] Patient in ... at end of sessionbed, 3 railings up; alarm on Communicated with ... at end of sessionbedside nurse Patient Effortgood Symptoms Noted During/After Treatmentfatigue; increased pain Patient Profile Reviewedyes Onset of Illness/Injury or Date of [id number] Reason for Referral-09/18/21: s/p exploration of spinal [...] EOB sitting. Pertinent History of Current Functional Caypuhd42 y/o with hx of HTN, C6-7 ACDF, [...] TubesIV; triple lumen; telemetry; urethral catheter indwelling; MERCHANDISE EXAMINER pump, DAVOL drain, wound vac O2 Deliverynasal cannula; 4L Pre Treatment Patient Positionsupine Pre Treatment Blood Pressure Gtgztkyr88 mmHg Pre Treatment Diastolic (mm Hg)46 mmHg Pre Treatment Heart Rate (beats/min)67 Pre Treatment Respiratory Rate (breaths/min)19 Pre Treatment SpO2 (%)96 % Pre Treatment Oxygen Deliverysupplemental O2 Pre Treatment CommentsMAP 56 During Treatment Patient Positionsitting During Treatment Blood Pressure Fdyxmbjp05 mmHg During Treatment Diastolic (mm Hg)77 mmHg [...] to sit; sit to supine Roll Left [place] (Bed Mobility)set up; verbal cues; 2 person assist; Pt required assist to bend BLE at (more content not included)... Normal [facility] PATH REVIEW-IMMUNOHEMATOLOGY on 09-22-2021 PATH REV-IMMUNOHEMOTOL ZURDO Normal [facility] Comment on above: Result Comment: By h [...] C #### [facility] [address] [place] [address] PT Evaluation q5-kb-byuxaatb t - co-treatment with OT to maxion 09-22-2021 PT Evaluation x7-ub-xwzbwznll - co-treatment with OT to maxi Rehab: Info: Mode of Treatmentphysical therapy; co-treatment; co-treatment with OT to maximize safety, mobility and ADL participation Time IN10:50 Time OUT11:40 Total Treatment Vkjjsmq54 Patient in ... at end of sessionbed, 3 railings up; alarm on Communicated with ... at end of sessionbedside nurse Patient Effortgood Symptoms Noted During/After Treatmentfatigue; increased pain Patient Profile Reviewedyes Onset of Illness/Injury or Date of [id number]-Bzy-6754 Reason for Referral-09/18/21: s/p exploration of spinal [...] TubesIV; triple lumen; telemetry; urethral catheter indwelling; MERCHANDISE EXAMINER pump, DAVOL drain, wound vac O2 Deliverynasal cannula; 4L Pre Treatment Patient Positionsupine Pre Treatment Blood Pressure Kxdevmcz83 mmHg Pre Treatment Diastolic (mm Hg)46 mmHg Pre Treatment Heart Rate (beats/min)67 Pre Treatment SpO2 (%)96 % Pre Treatment Oxygen Deliverysupplemental O2 During Treatment Patient Positionsitting During Treatment Blood Pressure Hgrrpanh57 mmHg During Treatment Diastolic (mm Hg)77 mmHg [...] sit to supine; rolling right Roll Left [place] (Bed Mobility)verbal cues; 2 person assist; Pt required assist to bend BLE at knees and to initiate turn at shoulders and hips, verbal cues for grasp on bed rail, technique, direction follow, and encouragement.; maximum assist (25% patient effort) Roll Right [place] (Bed Mobility)2 person assist; maximum assist (25% patient effort); verbal cues Scoot/Bridge [place] (Bed Mobility)verbal cues; maximum assist (25% patient effort); 2 person assist; boost HOB Wemczv-iu-Ivz [place] (Bed Mobility)verbal cues; maximum assist (25% patient effort); 1 person assist Ify-vg-Fiubqf [place] (Bed Mobility)set up; verbal cues; maximum assist (25% patient effort); 1 person assist Assistive Device (Bed Mobility)bed rails; draw sheet Impairments Impacting Function (Mobility)balance; cognition; endurance/activity tolerance; pain; strength; postural/trunk control; motor control Motor: Sitting, Static (Balance)SBA Sitting, Dynamic (Balance)CGA Ceu-li-Xxfwg (Balance)MADELIN this visit. Pt hypotensive Sensory: Pre-Treatment Pain Rating7/10 Post-Treatment Pain Rating7/10 Comment, Pre/Post Treatment PainPt reported pain throughout buttocks and back, utilized MERCHANDISE EXAMINER pump as needed. Pain LimitationFunctional mobility limited due pain; ADLs/IADLs limited due to pain; Participation limited by pain; RN or team was notified of limitations due to p (more content not included)... Normal [facility] RENAL FUNCTION PANELon 09-22 Albumin [Mass/Vol] 2.7 g/dL Low 3.4 - 5.0 [facility] Comment on above: Performed By: #### C BC #### [facility] [address] [place] [address] Anion gap [Moles/Vol] 10 mmol/L Normal 10 - 20 [facility] Comment on above: Performed By: #### C BC #### [facility] [address] [place] [address] Calcium [Mass/Vol] 7.8 mg/dL Low 8.6 - 10.6 [facility] Comment on above: Performed By: #### C BC #### [facility] [address] [place] [address] Chloride [Moles/Vol] 105 mmol/L Normal 98 - 107 [facility] Comment on above: Performed By: #### C BC #### [facility] [address] [place] [address] Creatinine [Mass/Vol] 0.49 mg/dL Low 0.50 - 1.05 [facility] Comment on above: Performed By: #### C BC #### [facility] [address] [place] [address] eGFR FEMALE >90 Normal >90 [facility] Comment on above: Result Comment: CALC ULATIONS OF ESTIMATED GFR ARE PERFORMED USING THE 2020 CKD-EPI STUDY REFIT EQUATION WITHOUT THE RACE VARIABLE FOR THE IDMS-TRACEABLE CREATININE METHODS. https://jasn.asnjournals.org/content/early//ASN.848 9763886 Performed By: #### C BC #### [facility] [address] [place] [address] Glucose [Mass/Vol] 93 mg/dL Normal 74 - 99 [facility] Comment on above: Performed By: #### C BC #### [facility] [address] [place] [address] HCO3 (Bld) [Moles/Vol] 29 mmol/L Normal 21 - 32 [facility] Comment on above: Performed By: #### C BC #### [facility] [address] [place] [address] Phosphate [Mass/Vol] 2.4 mg/dL Low 2.5 - 4.9 [facility] Comment on above: Result Comment: The performance characteristics of phosphorus testing in heparinized plasma have been validated by the individual laboratory site where testing is performed. Testing on heparinized plasma is not approved by the FDA; however, such approval is not necessary. Performed By: #### C BC #### [facility] [address] [place] [address] Potassium [Moles/Vol] 4.3 mmol/L Normal 3.5 - 5.3 [facility] Comment on above: Performed By: #### C BC #### [facility] [address] [place] [address] Sodium [Moles/Vol] 140 mmol/L Normal 136 - 145 [facility] Comment on above: Performed By: #### C BC #### [facility] [address] [place] [address] Urea nitrogen [Mass/Vol] 9 mg/dL Normal 6 - 23 [facility] Comment on above: Performed By: #### C BC #### [facility] [address] [place] [address] Renal Function Panelon 09-22 Albumin BCP dye [...] RACE VARIABLE FOR THE IDMS-TRACEABLE CREATININE METHODS.https://jasn.asnjournals.org/content/early /ASN.0093030558 UA MICROSCOPICon 09-22-2021 RBC 6 /HPF Abnormal 0-5 [facility] Comment on above: Performed By: #### C BC #### [facility] [address] [place] [address] SQUAMOUS EPITH. CELLS 1 /HPF Normal [facility] Comment on above: Performed By: #### C BC #### [facility] [address] [place] [address] WBC 8 /HPF Abnormal 0-5 [facility] Comment on above: Performed By: #### C BC #### [facility] [address] [place] [address] URINALYSIS WITH CULTURE IF I NDICATEDon 09-22-2021 Appearance (U) CLEAR Normal CLEAR [facility] Comment on above: Performed By: #### U ARFX ####[id number] [place] [address] Bilirubin Ql (U) Negative Normal NEGATIVE [facility] Comment on above: Performed By: #### U ARFX ####[id number] [place] [address] Color (U) MIRANDA Normal STRAW,YELL OW [facility] Comment on above: Performed By: #### U ARFX ####[id number] [place] [address] Glucose Ql (U) Negative Normal NEGATIVE [facility] Comment on above: Performed By: #### U ARFX ####[id number] [place] [address] Hemoglobin Ql (U) Negative Normal NEGATIVE [facility] Comment on above: Performed By: #### U ARFX ####[id number] [place] [address] Ketones Ql (U) 20 (1+) Abnormal NEGATIVE [facility] Comment on above: Performed By: #### U ARFX ####[id number] [place] [address] Leukocyte esterase Test strip Ql (U) Negative Normal NEGATIVE [facility] Comment on above: Performed By: #### U ARFX ####[id number] [place] [address] Nitrite Ql (U) Negative Normal NEGATIVE [facility] Comment on above: Performed By: #### U ARFX ####[id number] [place] [address] pH (U) 5.0 [pH] Normal 5.0 - 8.0 [facility] Comment on above: Performed By: #### U ARFX ####[id number] [place] [address] Protein Ql (U) 30 (1+) Abnormal NEGATIVE [facility] Comment on above: Performed By: #### U ARFX ####[id number] [place] [address] Specific gravity (U) [Rel density] 1.040 High 1.005 - 1.035 [facility] Comment on above: Performed By: #### U ARFX ####[id number] [address] Urobilinogen (U) [Mass/Vol] 2.0 mg/dL High 0.0 - 1.9 [facility] Comment on above: Result Comment: Due to [...] positive urobilinogen. Performed By: #### U ARFX ####[id number] [place] [address] Lab Specimen Source Normal [facility] Comment on above: Performed By: #### U ARFX ####[id number] [place] [address] Performed By: #### C BC #### [facility] [address] [place] [address] Color (U) MIRANDA See Below MG-Gastroen terology-Rosendo [...] Abnormal NEGATIVE MG -Gastroen terology-[facility]well 6 [facility] Work Phone: RBC [...] CULTURE,BACTERIALon URINE CULTURE,BACTERIAL PATIENT: Fay LEE LOCATION: [place] [address] BILL#: [id number] : 71 AGE: SEX: F ORDERED BY: EMMA IZAGUIRRE SOURCE: URINE COLLECTED: 09/22/21 12:59 ANTIBIOTICS AT [facility].: RECEIVED : 09/22/21 14:59 SITE: R E S U L T S URINE CULTURE,BACTERIAL FINAL 09/23/21 09:04 NO SIGNIFICANT GROWTH. Normal [facility] Comment on above: Performed By: #### C BC #### [facility] [address] [place] [address] Urinalysis, Microscopicon Urinalysis, Microscopic 1 {/HPF} M G-Gastroen terology-[facility] lwell 6 I Work Phone: Urinalysis, Microscopic 6 {/HPF} Abnormal 0-5 M G-Gastroen terology-[facility]well 6 I Work Phone: Urinalysis, Microscopic 8 {/HPF} Abnormal 0-5 M G-Gastroen terology-[facility] lwell 6 I Work Phone: Comment on above: SOURCE: CBCon 09-21-2021 Erythrocyte distribution width (RBC) [Ratio] 13.1 % Normal 11.5 - 14.5 [facility] Comment on above: Performed By: #### R ENAL #### [facility] [address] [place] [address] Hematocrit (Bld) [Volume fraction] 34.5 % Low 36.0 - 46.0 [facility] Comment on above: Performed By: #### R ENAL #### [facility] [address] [place] [address] Hemoglobin (Bld) [Mass/Vol] 11.4 g/dL Low 12.0 - 16.0 [facility] Comment on above: Performed By: #### R ENAL #### [facility] [address] [place] [address] MCHC (RBC) [Mass/Vol] 33.0 g/dL Normal 32.0 - 36.0 [facility] Comment on above: Performed By: #### R ENAL #### [facility] [address] [place] [address] MCV (RBC) [Entitic vol] 91 fL Normal 80 - 100 [facility] Comment on above: Performed By: #### R ENAL #### [facility] [address] [place] [address] NUCLEATED RBC 0.0 /100 WBC Normal 0.0-0.0 [facility] Comment on above: Performed By: #### R ENAL #### [facility] [address] [place] [address] Platelets (Bld) [#/Vol] 269 10*3/uL Normal 150 - 450 [facility] Comment on above: Performed By: #### R ENAL #### [facility] [address] [place] [address] RBC 3.81 x10E12/L Low 4.00 - 5.20 [facility] Comment on above: Performed By: #### R ENAL #### [facility] [address] [place] [address] WBC (Bld) [#/Vol] 14.6 10*3/uL High 4.4 - 11.3 [facility] Comment on above: Performed By: #### R ENAL #### [facility] [address] [place] [address] Erythrocyte distribution width (RBC) [Ratio] 13.2 % Normal 11.5 - 14.5 [facility] Comment on above: Performed By: #### R ENAL #### [facility] [address] [place] [address] Hematocrit (Bld) [Volume fraction] 35.8 % Low 36.0 - 46.0 [facility] Comment on above: Performed By: #### R ENAL #### [facility] [address] [place] [address] Hemoglobin (Bld) [Mass/Vol] 11.9 g/dL Low 12.0 - 16.0 [facility] Comment on above: Performed By: #### R ENAL #### [facility] [address] [place] [address] MCHC (RBC) [Mass/Vol] 33.2 g/dL Normal 32.0 - 36.0 [facility] Comment on above: Performed By: #### R ENAL #### [facility] [address] [place] [address] MCV (RBC) [Entitic vol] 91 fL Normal 80 - 100 [facility] Comment on above: Performed By: #### R ENAL #### [facility] [address] [place] [address] NUCLEATED RBC 0.0 /100 WBC Normal 0.0-0.0 [facility] Comment on above: Performed By: #### R ENAL #### [facility] [address] [place] [address] Platelets (Bld) [#/Vol] 215 10*3/uL Normal 150 - 450 [facility] Comment on above: Performed By: #### R ENAL #### [facility] [address] [place] [address] RBC 3.93 x10E12/L Low 4.00 - 5.20 [facility] Comment on above: Performed By: #### R ENAL #### [facility] [address] [place] [address] WBC (Bld) [#/Vol] 14.8 10*3/uL High 4.4 - 11.3 [facility] Comment on above: Performed By: #### R ENAL #### [facility] [address] [place] [address] Daily Progress Note-Nuha stearns 09-21-2021 Daily Progress Note-Neurosurgery Service: Neurosurgery Subjective Data: MORALES LEE is a 46 year old Female who is Hospital Day # 7 and POD #3 for 1. Exploration of spinal fusion;2. Reduction of L4/5 dislocation;2. L5-pelvis instrumented fusion with posterolateral arthrodesis;4. Extension of instrumentation with multiple bobby construct and side connectors. Objective Data: Objective Information: T PRBPSpO2 [id number]/8495% Date/Time09/20 15: 4: 4: 4: 4:00 Range(36.9C [...] ----- Mn/Dy/Year TimeIntakeOutputNet Sep 19, 2021 10:00 [id number] Sep 19, 2021 6:00 [id number] The Intake and Output Totals for the last 24 hours are: IntakeOutzuni hospitalNet [id number] Physical Exam by System: Neurological: A&Ox3 RUE [...] Chronic pain recs- intra-op ketamine, meloxicam post-op, MERCHANDISE EXAMINER until good PT eval, Suboxone as OP [...] the following: I personally evaluated the patient [id number] Comments/ Additional Findings The patient has been [...] inborn buckling of the ligamentum flavum from church of for significant kyphotic malalignment spine I [...] 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 Normal [facility] Laboratory - Blood bankon ABO group Nom (Bld) O MG-Ga stroen [place] [facility] Work Phone: Blood group antibody investigation (P/RBC) [Interp] Anti-E MG-Gastroen [employer]-[facility] [employer] 6 I Work Phone: Blood group antibody [...] I Work Phone: Comment on above: CALLED EVARISTO [...] MG-Gastroen terology-[facility]well 6 I Work Phone: [phone] Erythrocyte distribution width (RBC) [Ratio] 13.2 % See Below MG-Gastroen terology-[facility] [place] 6 I Work Phone: [phone] Comment on above: Reference Range: 11. 5 - 14.5 Hematocrit (Bld) [Volume fraction] 35.8 % below low threshold See Below MG-Gastroen terology-[facility] [place]well 6 I Work Phone: Comment on above: Reference Range: 36. 0 - 46.0 Hemoglobin (Bld) [Mass/Vol] 11.9 g/dL below low threshold See Below MG-Gastroen terology-[facility] [place] 6 I Work Phone: [phone] Comment on above: Reference Range: 12. 0 - 16.0 MCHC (RBC) [Mass/Vol] 33.2 g/dL See Below MG- Gastroen terology-[facility] [place] 6 I Work Phone: Comment on above: Reference Range: 32. 0 - 36.0 MCV (RBC) [Entitic vol] 91 fL 80 - 100 M G-Gastroen terology-[facility]endo [facility]well 6 I Work Phone: [phone] Platelets (Bld) [#/Vol] 215 10*3/uL 150 - [...] lumbar spine September 18, 2021 ACCESSION NUMBER(S): [id number]; [id number] ORDERING CLINICIAN: DEVANTE STARKS TECHNIQUE: Sagittal axial [...] signed by: NATALIA WALL DO Normal [facility] NR MRI T-SPINE WOon 09-21-19 22 NR MRI T-SPINE WO Patient Name: MORALES LEE STUDY: MRI T-SPINE WO; MRI L-SPINE WO; 09/20/2021 10:40 pm; 09/20/2021 10:42 pm INDICATION: postop foot weakness, Lie Flat: Yes, Pre Med: No . COMPARISON: MRI December 24, [address] of the lumbar spine September 18, 2021 ACCESSION NUMBER(S): [id number]; [id number] ORDERING CLINICIAN: DEVANTE STARKS TECHNIQUE: Sagittal axial [...] signed by: NATALIA WALL DO Normal [facility] No Panel Informationon 09-21 0.0 {/100_WBC} 0.0-0.0 [...] Preop Checklist Preop Checklist: Preop Checklist: Arrival [id number] Arrival Time11:00 Procedure Typere-exploration of spine Temperature C36.2 degrees C Temperature F97.1 degrees F Heart Rate91 beats per minute Respiratory Rate18 breath per minute Blood Pressure Fvnuzjxz927 mm/Hg Blood Pressure Gfpwfzavf28 mm/Hg COVID 19 Results in Last 7 [...] 11:17 by Linh Buchanan (RN) Normal [facility] REQUEST-LEUKOREDUCED RED ANJU LSon 09-21-2021 REQUEST-LEUKOREDUCED RED CELLS ORDER RECD Normal [facility] Comment on above: Performed By: #### A FPA3 #### [facility] [address] [place] [id number] TYPE + SCREENon 09-21-2021 ABO TYPE O Normal [facility] Comment on above: Performed By: #### A FPA3 #### [facility] [address] [place] [address] RH TYPE Positive Normal [facility] Comment on above: Performed By: #### A FPA3 #### [facility] [address] [place] [address] ABO TYPE Canceled Normal [facility] Comment on above: Order Comment: VENECIA ESPINO, 09/21/2021 05:08TEST TYPE + SCREEN WAS CANCELLED, 09/21/2021 05:06 NO PHLEB ID ON TUBE. Result Comment: CALL ED EVARISTO ESPINO, 09/21/2021 05:08 Performed By: #### A FPA3 #### [facility] [address] [place] [address] RH TYPE Canceled Normal [facility] Comment on above: Order Comment: VENECIA ESPINO, 09/21/2021 05:08TEST TYPE + SCREEN WAS CANCELLED, 09/21/2021 05:06 NO PHLEB ID ON TUBE. Result Comment: CALL ED EVARISTO ESPINO, 09/21/2021 05:08 Performed By: #### A FPA3 #### [facility] [address] [place] [address] CBCon 09-20-2021 Erythrocyte distribution width (RBC) [Ratio] 13.2 % Normal 11.5 - 14.5 [facility] Comment on above: Performed By: #### C BC #### [facility] [address] [place] [address] Hematocrit (Bld) [Volume fraction] 30.8 % Low 36.0 - 46.0 [facility] Comment on above: Performed By: #### C BC #### [facility] [address] [place] [address] Hemoglobin (Bld) [Mass/Vol] 9.8 g/dL Low 12.0 - 16.0 [facility] Comment on above: Performed By: #### C BC #### [facility] [address] [place] [address] MCHC (RBC) [Mass/Vol] 31.8 g/dL Low 32.0 - 36.0 [facility] Comment on above: Performed By: #### C BC #### [facility] [address] [place] [address] MCV (RBC) [Entitic vol] 93 fL Normal 80 - 100 [facility] Comment on above: Performed By: #### C BC #### [facility] [address] [place] [address] NUCLEATED RBC 0.0 /100 WBC Normal 0.0-0.0 [facility] Comment on above: Performed By: #### C BC #### [facility] [address] [place] [address] Platelets (Bld) [#/Vol] 224 10*3/uL Normal 150 - 450 [facility] Comment on above: Performed By: #### C BC #### [facility] [address] [place] [address] RBC 3.32 x10E12/L Low 4.00 - 5.20 [facility] Comment on above: Performed By: #### C BC #### [facility] [address] [place] [address] WBC (Bld) [#/Vol] 12.1 10*3/uL High 4.4 - 11.3 [facility] Comment on above: Performed By: #### C #### [facility] [address] [place] [address] Daily Progress Note-Nuha jinny 09-20-2021 Daily Progress Note-Neurosurgery Service: Neurosurgery Subjective Data: MORALES LEE is a 46 year old Female who is Hospital Day # 6 and POD #2 for 1. Exploration of spinal fusion;2. Reduction of L4/5 dislocation;2. L5-pelvis instrumented fusion with posterolateral arthrodesis;4. Extension of instrumentation with multiple bobby construct and side connectors. Objective Data: Objective Information: T PRBPSpO2 [id number]/5095% Date/Time09/19 16: 1: 16: 1: 1:34 Range(36.7C - 36.7C ) (84 - 110 ) (18 - 18 ) (82 - 118 )/ (50 - 97 ) (94% - 97% ) As of 19-Sep-2021 08:00:00, patient is on 2 L/min of oxygen via nasal cannula. ---- Intake and Output ----- Mn/Dy/Year TimeIntakeOutputNet Sep 18, 2021 10:00 [id number] The Intake and Output Totals for the [...] chronic pain recs- intra-op ketamine, meloxicam post-op, MERCHANDISE EXAMINER until good PT eval, Suboxone as OP [...] 21-Sep-2021 11:28 by Perez Carlisle) Normal [facility] Laboratory - Hematology and Cell countson 09-20-2021 [...] 12:25 by Carole Carlos (OT) Normal [facility] PT Evaluation v2-attemptedon 09-20-2021 PT Evaluation v2-attempted Rehab: Info: Mode of Treatmentattempted Time IN12:00 Evaluation Not PerformedPer RN pt not appropriate for therapy, pt continues to have low BP and plan to receive blood, will hold and reattempt as appropriate Electronic Signatures: Kaykay Yoo (PT) (Signed 20-Sep-2021 12:42) Authored: Info Last Updated: 20-Sep-2021 12:42 by Kaykay Yoo (PT) Normal [facility] REQUEST-LEUKOREDUCED RED ANJU LSon 09-20-2021 REQUEST-LEUKOREDUCED RED CELLS ORDER RECD Normal [facility] Comment on above: Performed By: #### R ENAL #### [facility] [address] [place] [address] CBCon 09-19-2021 Erythrocyte distribution width (RBC) [Ratio] 12.4 % Normal 11.5 - 14.5 [facility] Comment on above: Performed By: #### R ENAL #### [facility] [address] [place] [address] Hematocrit (Bld) [Volume fraction] 38.3 % Normal 36.0 - 46.0 [facility] Comment on above: Performed By: #### R ENAL #### [facility] [address] [place] [address] Hemoglobin (Bld) [Mass/Vol] 13.4 g/dL Normal 12.0 - 16.0 [facility] Comment on above: Performed By: #### R ENAL #### [facility] [address] [place] [address] MCHC (RBC) [Mass/Vol] 35.0 g/dL Normal 32.0 - 36.0 [facility] Comment on above: Performed By: #### R ENAL #### [facility] [address] [place] [address] MCV (RBC) [Entitic vol] 85 fL Normal 80 - 100 [facility] Comment on above: Performed By: #### R ENAL #### [facility] [address] [place] [address] NUCLEATED RBC 0.0 /100 WBC Normal 0.0-0.0 [facility] Comment on above: Performed By: #### R ENAL #### [facility] [address] [place] [address] Platelets (Bld) [#/Vol] 326 10*3/uL Normal 150 - 450 [facility] Comment on above: Performed By: #### R ENAL #### [facility] [address] [place] [address] RBC 4.51 x10E12/L Normal 4.00 - 5.20 [facility] Comment on above: Performed By: #### R ENAL #### [facility] [address] [place] [address] WBC (Bld) [#/Vol] 20.5 10*3/uL High 4.4 - 11.3 [facility] Comment on above: Performed By: #### R ENAL #### [facility] [address] [place] [address] CBC AND DIFFERENTIALon 09-19 % AUTOMATED IMMATURE GRAN 0.6 % Normal 0.0 - 0.9 [facility] Comment on above: Result Comment: Jaleesa ture Granulocyte Count (IG) includes promyelocytes, myelocytes and metamyelocytes but does not include bands. Percent differential counts (%) should be interpreted in the context of the absolute cell counts (cells/L). Performed By: #### V FPA3 #### [facility] [address] [place] [address] Basophils (Bld) [#/Vol] 0.03 10*3/uL Normal 0.00 - 0.10 [facility] Comment on above: Performed By: #### V FPA3 #### [facility] [address] [place] [address] Basophils/100 WBC (Bld) 0.1 % Normal 0.0 - 2.0 [facility] Comment on above: Performed By: #### V FPA3 #### [facility] [address] [place] [address] Eosinophils (Bld) [#/Vol] 0.01 10*3/uL Normal 0.00 - 0.70 [facility] Comment on above: Performed By: #### V FPA3 #### [facility] [address] [place] [address] Eosinophils/100 WBC (Bld) 0.0 % Normal 0.0 - 6.0 [facility] Comment on above: Performed By: #### V FPA3 #### [facility] [address] [place] [address] Erythrocyte distribution width (RBC) [Ratio] 12.9 % Normal 11.5 - 14.5 [facility] Comment on above: Performed By: #### V FPA3 #### [facility] [address] [place] [address] Hematocrit (Bld) [Volume fraction] 38.3 % Normal 36.0 - 46.0 [facility] Comment on above: Performed By: #### V FPA3 #### [facility] [address] [place] [address] Hemoglobin (Bld) [Mass/Vol] 12.7 g/dL Normal 12.0 - 16.0 [facility] Comment on above: Performed By: #### V FPA3 #### [facility] [address] [place] [address] Lymphocytes (Bld) [#/Vol] 2.89 10*3/uL Normal 1.20 - 4.80 [facility] Comment on above: Performed By: #### V FPA3 #### [facility] [address] [place] [address] Lymphocytes/100 WBC (Bld) 13.5 % Normal 13.0 - 44.0 [facility] Comment on above: Performed By: #### V FPA3 #### [facility] [address] [place] [address] MCHC (RBC) [Mass/Vol] 33.2 g/dL Normal 32.0 - 36.0 [facility] Comment on above: Performed By: #### V FPA3 #### [facility] [address] [place] [address] MCV (RBC) [Entitic vol] 89 fL Normal 80 - 100 [facility] Comment on above: Performed By: #### V FPA3 #### [facility] [address] [place] [address] Monocytes (Bld) [#/Vol] 1.23 10*3/uL High 0.10 - 1.00 [facility] Comment on above: Performed By: #### V FPA3 #### [facility] [address] [place] [address] Monocytes/100 WBC (Bld) 5.7 % Normal 2.0 - 10.0 [facility] Comment on above: Performed By: #### V FPA3 #### [facility] [address] [place] [address] Neutrophils (Bld) [#/Vol] 17.16 10*3/uL High 1.20 - 7.70 [facility] Comment on above: Performed By: #### V FPA3 #### [facility] [address] [place] [address] Neutrophils/100 WBC (Bld) 80.1 % Normal 40.0 - 80.0 [facility] Comment on above: Performed By: #### V FPA3 #### [facility] [address] [place] [address] NUCLEATED RBC 0.0 /100 WBC Normal 0.0-0.0 [facility] Comment on above: Performed By: #### V FPA3 #### [facility] [address] [place] [address] Platelets (Bld) [#/Vol] 401 10*3/uL Normal 150 - 450 [facility] Comment on above: Performed By: #### V FPA3 #### [facility] [address] [place] [address] RBC 4.28 x10E12/L Normal 4.00 - 5.20 [facility] Comment on above: Performed By: #### V FPA3 #### [facility] [address] [place] [address] WBC (Bld) [#/Vol] 21.5 10*3/uL High 4.4 - 11.3 [facility] Comment on above: Performed By: #### V FPA3 #### [facility] [address] [place] [address] COAGULATION SCREENon 022 aPTT Coag (Bld) [Time] 29 s Normal 26 - 39 [facility] Comment on above: Result Comment: Note new reference range as of 08/04/2021 at 10:00am. Performed By: #### R ENAL #### [facility] [address] [place] [address] PT Coag (PPP) [Time] 11.5 s Normal 9.8 - 13.4 [facility] Comment on above: Result Comment: Note new reference range as of 08/04/2021 at 10:00am. Performed By: #### R ENAL #### [facility] [address] [place] [address] PT, INR 1.0 Normal 0.9 - 1.1 [facility] Comment on above: Performed By: #### R ENAL #### [facility] [address] [place] [address] Complete Blood Count + Diffjacque dasilva 09-19-2021 [...] threshold See Below [facility]-Gastroen terology-[facility] 6 [facility] Work Phone: Comment on above: [...] connectors. Objective Data: Objective Information: T PRBPSpO2 [id number]/8596% Date/Time09/18 17: 17: 17: 17: 17:40 Range(36.4C [...] ----- Mn/Dy/Year TimeIntakeOutputNet Sep 17, 2021 10:00 [id number] The Intake and Output Totals for the last 24 hours are: IntakeOutputNet [id number] Physical Exam by System: Neurological: A&Ox3 RUE D5, B5, T5, HG5, IO5 LUE D4+, B4+, T4+, HG4+, IO5 RLE HF 4+, KE4+, PF5, DF5 (pain limited) LLE HF 4-, KE4-, PF4, DF5 Recent Lab Results: Results: Recent Arterial Blood Gas Results 09/18/2021 11:48 [id number] 24 h range: ( 219 - 224 ) pH7.44 24 h range: ( 7.44 - 7.45 ) hGT588 24 h range: ( 37 - 40 ) YC0576 24 h range: ( 100 - 100 ) Base Excess2.8 24 h range: ( 1.8 - 2.8 ) Oywtyikzoio52.2 24 h range: ( 25.7 - 27.2 [...] the note. I personally evaluated the patient [id number] Comments/ Additional Findings Patients postoperative CT scan [...] an (more content not included)... Normal [facility] Laboratory - Coagulationon 0 09-19-2021 aPTT Coag (PPP) [Time] 29 s 26 - 39 [facility] -Gastroen terology-[facility] 6 [facility] Work Phone: Comment on above: Note new reference pedro quiñones as of 08/04/2021 at 10:00am. INR Coag (PPP) [Relative time] 1.0 {INR} 0.9 - 1.1 [facility]-Gastroen terology-[facility] 6 [facility] Work Phone: PT Coag (PPP) [Time] 11.5 s 9.8 - 13.4 MG-G astroen terology-Rosendo moura 6 [facility] Work Phone: Comment on above: Note new reference pedro quiñones as of 08/04/2021 at 10:00am. MAGNESIUMon 09-19-2021 Magnesium [Mass/Vol] 1.59 mg/dL Low 1.60 - 2.40 [facility] Comment on above: Performed By: #### R ENAL #### [facility] [address] [place] [address] PT Evaluation v2-attemptedon 09-19-2021 PT Evaluation v2-attempted Rehab: Info: Mode of Treatmentattempted Time IN11:37 Time OUT11:50 Total Treatment [id number] Evaluation Not PerformedHistory obtained, BP assessed in supine 79/54mmHg, RN notified and redone with 71/51mmHg, will hold PT eval at this time and reattempt as medically appropriate Electronic Signatures: Kaykay Yoo (PT) (Signed 19-Sep-2021 12:14) Authored: Info Last Updated: 19-Sep-2021 12:14 by Kaykay Yoo (PT) Normal [facility] RENAL FUNCTION PANELon 09-19 Albumin [Mass/Vol] 3.4 g/dL Normal 3.4 - 5.0 [facility] Comment on above: Performed By: #### A FPA3 #### [facility] [address] [place] [address] Anion gap [Moles/Vol] 18 mmol/L Normal 10 - 20 [facility] Comment on above: Performed By: #### A FPA3 #### [facility] [address] [place] [address] Calcium [Mass/Vol] 8.3 mg/dL Low 8.6 - 10.6 [facility] Comment on above: Performed By: #### A FPA3 #### [facility] [address] [place] [address] Chloride [Moles/Vol] 100 mmol/L Normal 98 - 107 [facility] Comment on above: Performed By: #### A FPA3 #### [facility] [address] [place] [address] Creatinine [Mass/Vol] 0.60 mg/dL Normal 0.50 - 1.05 [facility] Comment on above: Performed By: #### A FPA3 #### [facility] [address] [place] [address] eGFR FEMALE >90 Normal >90 [facility] Comment on above: Result Comment: CALC ULATIONS OF ESTIMATED GFR ARE PERFORMED USING THE 2020 CKD-EPI STUDY REFIT EQUATION WITHOUT THE RACE VARIABLE FOR THE IDMS-TRACEABLE CREATININE METHODS. https://jasn.asnjournals.org/content//ASN.411 7315953 Performed By: #### A FPA3 #### [facility] [address] [place] [address] Glucose [Mass/Vol] 82 mg/dL Normal 74 - 99 [facility] Comment on above: Performed By: #### A FPA3 #### [facility] [address] [place] [address] HCO3 (Bld) [Moles/Vol] 26 mmol/L Normal 21 - 32 [facility] Comment on above: Performed By: #### A FPA3 #### [facility] [address] [place] [address] Phosphate [Mass/Vol] 2.8 mg/dL Normal 2.5 - 4.9 [facility] Comment on above: Result Comment: The performance characteristics of phosphorus testing in heparinized plasma have been validated by the individual laboratory site where testing is performed. Testing on heparinized plasma is not approved by the FDA; however, such approval is not necessary. Performed By: #### A FPA3 #### [facility] [address] [place] [address] Potassium [Moles/Vol] 4.5 mmol/L Normal 3.5 - 5.3 [facility] Comment on above: Performed By: #### A FPA3 #### [facility] [address] [place] [address] Sodium [Moles/Vol] 139 mmol/L Normal 136 - 145 [facility] Comment on above: Performed By: #### A FPA3 #### [facility] [address] [place] [address] Urea nitrogen [Mass/Vol] 9 mg/dL Normal 6 - 23 [facility] Comment on above: Performed By: #### A FPA3 #### [facility] [address] [place] [address] Albumin [Mass/Vol] 3.6 g/dL Normal 3.4 - 5.0 [facility] Comment on above: Performed By: #### R ENAL #### [facility] [address] [place] [address] Anion gap [Moles/Vol] 13 mmol/L Normal 10 - 20 [facility] Comment on above: Performed By: #### R ENAL #### [facility] [address] [place] [address] Calcium [Mass/Vol] 8.9 mg/dL Normal 8.6 - 10.6 [facility] Comment on above: Performed By: #### R ENAL #### [facility] [address] [place] [address] Chloride [Moles/Vol] 100 mmol/L Normal 98 - 107 [facility] Comment on above: Performed By: #### R ENAL #### [facility] [address] [place] [address] Creatinine [Mass/Vol] 0.51 mg/dL Normal 0.50 - 1.05 [facility] Comment on above: Performed By: #### R ENAL #### [facility] [address] [place] [address] eGFR FEMALE >90 Normal >90 [facility] Comment on above: Result Comment: CALC ULATIONS OF ESTIMATED GFR ARE PERFORMED USING THE 2020 CKD-EPI STUDY REFIT EQUATION WITHOUT THE RACE VARIABLE FOR THE IDMS-TRACEABLE CREATININE METHODS. https://jasn.asnjournals.org/content/early/ASN.594 7822780 Performed By: #### R ENAL #### [facility] [address] [place] [address] Glucose [Mass/Vol] 123 mg/dL High 74 - 99 [facility] Comment on above: Performed By: #### R ENAL #### [facility] [address] [place] [address] HCO3 (Bld) [Moles/Vol] 28 mmol/L Normal 21 - 32 [facility] Comment on above: Performed By: #### R ENAL #### [facility] [address] [place] [address] Phosphate [Mass/Vol] 2.8 mg/dL Normal 2.5 - 4.9 [facility] Comment on above: Result Comment: The performance characteristics of phosphorus testing in heparinized plasma have been validated by the individual laboratory site where testing is performed. Testing on heparinized plasma is not approved by the FDA; however, such approval is not necessary. Performed By: #### R ENAL #### [facility] [address] [place] [address] Potassium [Moles/Vol] 4.3 mmol/L Normal 3.5 - 5.3 [facility] Comment on above: Performed By: #### R ENAL #### [facility] [address] [place] [address] Sodium [Moles/Vol] 137 mmol/L Normal 136 - 145 [facility] Comment on above: Performed By: #### R ENAL #### [facility] [address] [place] [address] Urea nitrogen [Mass/Vol] 8 mg/dL Normal 6 - 23 [facility] Comment on above: Performed By: #### R ENAL #### [facility] [address] [place] [address] Renal Function Panelon 09-19 Albumin BCP dye [Mass/Vol] 3.4 g/dL 3.4 - 5.0 [facility]astroen [facility]ology-[facility] 6 I Work Phone: Anion gap [Moles/Vol] 18 mmol/L 10 - 20 [facility]- Gastroen terology-[facility] 6 I Work Phone: Calcium [Mass/Vol] [...] RACE VARIABLE FOR THE IDMS-TRACEABLE CREATININE METHODS.https://jasn.asnjournals.org/content/ /ASN.0968933011 ANTIBODY IDENT.on 09-18-2021 ANTIBODY IDENT. Anti-E Normal [facility] Comment on above: Performed By: #### A FPA3 #### [facility] [address] [place] [address] ARTERIAL FULL PANELon 2021 Anion gap [Moles/Vol] 5 mmol/L Low 10 - 25 [facility] Comment on above: Performed By: #### A FPA3 ####[id number] [place] [address] BASE EXCESS-BLOOD 2.8 mmol/L Normal -2.0 - 3.0 [facility] Comment on above: Performed By: #### A FPA3 ####[id number] [place] [address] BICARB, CALCULATED 27.2 mmol/L High 22.0 - 26.0 [facility] Comment on above: Performed By: #### A FPA3 ####[id number] [place] [address] CALCIUM,IONIZED 1.20 mmol/L Normal 1.10 - 1.33 [facility] Comment on above: Performed By: #### A FPA3 ####[id number] [place] [address] Chloride [Moles/Vol] 106 mmol/L Normal 98 - 107 [facility] Comment on above: Performed By: #### A FPA3 ####[id number] [place] [address] Glucose [Mass/Vol] 149 mg/dL High 74 - 99 [facility] Comment on above: Performed By: #### A FPA3 ####[id number] [place] [address] Hematocrit (Bld) [Volume fraction] 38.0 % Normal 36.0 - 46.0 [facility] Comment on above: Performed By: #### A FPA3 ####[id number] [place] [address] HGB,CALCULATED 12.9 g/dL Normal 12.0 - 16.0 [facility] Comment on above: Performed By: #### A FPA3 ####[id number] [place] [address] Lactate [Moles/Vol] 0.9 mmol/L Normal 0.4 - 2.0 [facility] Comment on above: Performed By: #### A FPA3 ####[id number] [place] [address] Oxygen (Bld) [Partial pressure] 219 mm[Hg] High 85 - 95 [facility] Comment on above: Performed By: #### A FPA3 ####[id number] [place] [address] PATIENT TEMPERATURE 37.0 degrees C Normal [facility] Comment on above: Result Comment: NOTE : PATIENT RESULTS ARE NOT CORRECTED FOR TEMPERATURE. Performed By: #### A FPA3 ####[id number] [place] [address] PCO2 40 mmHg Normal 38 - 42 [facility] Comment on above: Performed By: #### A FPA3 ####[id number] [place] [address] pH (Bld) 7.44 [pH] High 7.38 - 7.42 [facility] Comment on above: Performed By: #### A FPA3 ####[id number] [place] [address] Potassium [Moles/Vol] 4.4 mmol/L Normal 3.5 - 5.3 [facility] Comment on above: Performed By: #### A FPA3 ####[id number] [place] [address] SO2 100 % Normal 94 - 100 [facility] Comment on above: Performed By: #### A FPA3 ####[id number] [place] [address] Sodium [Moles/Vol] 134 mmol/L Low 136 - 145 [facility] Comment on above: Performed By: #### A FPA3 ####[id number] [place] [address] Anion gap [Moles/Vol] 7 mmol/L Low 10 - 25 [facility] Comment on above: Performed By: #### A FPA3 #### [facility] [address] [place] [address] BASE EXCESS-BLOOD 1.8 mmol/L Normal -2.0 - 3.0 [facility] Comment on above: Performed By: #### A FPA3 #### [facility] [address] [place] [address] BICARB, CALCULATED 25.7 mmol/L Normal 22.0 - 26.0 [facility] Comment on above: Performed By: #### A FPA3 #### [facility] [address] [place] [address] CALCIUM,IONIZED 1.20 mmol/L Normal 1.10 - 1.33 [facility] Comment on above: Performed By: #### A FPA3 #### [facility] [address] [place] [address] Chloride [Moles/Vol] 105 mmol/L Normal 98 - 107 [facility] Comment on above: Performed By: #### A FPA3 #### [facility] [address] [place] [address] Glucose [Mass/Vol] 174 mg/dL High 74 - 99 [facility] Comment on above: Performed By: #### A FPA3 #### [facility] [address] [place] [address] Hematocrit (Bld) [Volume fraction] 37.0 % Normal 36.0 - 46.0 [facility] Comment on above: Performed By: #### A FPA3 #### [facility] [address] [place] [address] HGB,CALCULATED 12.6 g/dL Normal 12.0 - 16.0 [facility] Comment on above: Performed By: #### A FPA3 #### [facility] [facility] [address] [place] [address] Lactate [Moles/Vol] 1.1 mmol/L Normal 0.4 - 2.0 [facility] Comment on above: Performed By: #### A FPA3 #### [facility] [address] [place] [address] Oxygen (Bld) [Partial pressure] 224 mm[Hg] High 85 - 95 [facility] Comment on above: Performed By: #### A FPA3 #### [facility] [address] [place] [address] PATIENT TEMPERATURE 37.0 degrees C Normal [facility] Comment on above: Result Comment: NOTE : PATIENT RESULTS ARE NOT CORRECTED FOR TEMPERATURE. Performed By: #### A FPA3 #### [facility] [address] [place] [address] PCO2 37 mmHg Low 38 - 42 [facility] Comment on above: Performed By: #### A FPA3 #### [facility] [address] [place] [address] pH (Bld) 7.45 [pH] High 7.38 - 7.42 [facility] Comment on above: Performed By: #### A FPA3 #### [facility] [address] [place] [address] Potassium [Moles/Vol] 3.9 mmol/L Normal 3.5 - 5.3 [facility] Comment on above: Performed By: #### A FPA3 #### [facility] [address] [place] [address] SO2 100 % Normal 94 - 100 [facility] Comment on above: Performed By: #### A FPA3 #### [facility] [address] [place] [address] Sodium [Moles/Vol] 134 mmol/L Low 136 - 145 [facility] Comment on above: Performed By: #### A FPA3 #### [facility] [address] [place] [address] CT L Spine without Contrasto n 09-18-2021 [...] connectors. Objective Data: Objective Information: T PRBPSpO2 [id number]/4391% Date/Time09/18 6: 5: 5: 5: 5:56 Range(37C [...] Recent Arterial Blood Gas Results 09/18/2021 11:48 [id number] 24 h range: ( 219 - 224 ) pH7.44 24 h range: ( 7.44 - 7.45 ) mJJ177 24 h range: ( 37 - 40 ) KW9894 24 h range: ( 100 - 100 ) Base Excess2.8 24 h range: ( 1.8 - 2.8 ) Ytzxcrssgfn25.2 24 h range: ( 25.7 - 27.2 ) Assessment and Plan: Code Status: Code StatusFull Code Electronic Signatures: Bryan Mora) (Signed 18-Sep-2021 14:47) Authored: Service, Subjective Data, Objective Data, Assessment and Plan, Note Completion Last Updated: 18-Sep-2021 14:47 by Bryan Mora) Normal [facility] Daily Progress Note-Neurossaray stearns 09-18-2021 Daily Progress Note-Neurosurgery Service: Neurosurgery Subjective Data: MORALES LEE is a 46 year old Female who is Hospital Day # 4. Objective Data: Objective Information: T PRBPSpO2 [id number]/4391% Date/Time09/18 6: 5: 5: 5: 5:56 Range(36.6C [...] Severe ---- Intake and Output ----- Mn[facility]Dy[facility] 17, 2021 10:00 [id number] Sep 17, 2021 2:00 [id number] The Intake and Output Totals for the [...] the note. I personally evaluated the patient [id number] Electronic Signatures: Fidel Maciel (Resident)) (Signed 18-Sep-2021 06:55) Authored: Service, Subjective Data, Objective Data, Assessment and Plan, Note Completion Lex Frederick) (Signed 19-Sep-2021 10:18) Authored: Note Completion Co-Signer: Service, Subjective Data, Objective Data, Assessment and Plan, Note Completion Last Updated: 19-Sep-2021 10:18 by Lex Frederick) Normal [facility] Laboratory - Chemistry and C hemistry - [...] dated 10/07/2020. MRI dated 12/11/2020 ACCESSION NUMBER(S): [id number] ORDERING CLINICIAN: ANGELO JUAREZ TECHNIQUE: Thin cut [...] stated. This study was interpreted at [facility], [place], [place]. Electronically signed by: BOONE LAO MD Normal [facility] No Panel Informationon 09-18 0.0 {/100_WBC} 0.0-0.0 [...] Respiratory Rate15 breath per minute Blood Pressure Vereoevj88 mm/Hg Blood Pressure Tvkftfcgw04 mm/Hg COVID 19 Results in Last 7 [...] 06:59 by Lian Zuleta (SANAZ) Normal [facility] Radiologyon 09-18-2021 XR Chest Single view Normal [...] above high threshold 74 - 99 [facility]-Gastroen terology-Orsendo lwell 6 [facility] Work Phone: Phosphate [Mass/Vol] [...] RACE VARIABLE FOR THE IDMS-TRACEABLE CREATININE METHODS.https://jasn.asnjournals.org/content/early/ /ASN.5988687702 TH CHEST; 1 VIEWon 2 TH CHEST; 1 VIEW Patient Name: MORALES LEE STUDY: CHEST; 1 VIEW; 09/18/2021 2:38 pm INDICATION: s/p central line placement (right IJ double lumen) . COMPARISON: Radiograph dated 09/15/2021 ACCESSION NUMBER(S): [id number] ORDERING CLINICIAN: BRYAN MORA FINDINGS: Right IJ [...] signed by: LORELEI JOHNSTON MD Normal [facility] VENOUS FULL PANELon 09-18-19 Anion gap [Moles/Vol] 6 mmol/L Low 10 - 25 [facility] Comment on above: Performed By: #### V FPA3 #### [facility] [address] [place] [address] BASE EXCESS-BLOOD 3.9 mmol/L High -2.0 - 3.0 [facility] Comment on above: Performed By: #### V FPA3 #### [facility] [address] [place] [address] BICARB, CALCULATED 28.5 mmol/L High 22.0 - 26.0 [facility] Comment on above: Performed By: #### V FPA3 #### [facility] [address] [place] [address] CALCIUM,IONIZED 1.17 mmol/L Normal 1.10 - 1.33 [facility] Comment on above: Performed By: #### V FPA3 #### [facility] [address] [place] [address] Chloride [Moles/Vol] 103 mmol/L Normal 98 - 107 [facility] Comment on above: Performed By: #### V FPA3 #### [facility] [address] [place] [address] Glucose [Mass/Vol] 188 mg/dL High 74 - 99 [facility] Comment on above: Performed By: #### V FPA3 #### [facility] [address] [place] [address] Hematocrit (Bld) [Volume fraction] 39.0 % Normal 36.0 - 46.0 [facility] Comment on above: Performed By: #### V FPA3 #### [facility] [address] [place] [address] HGB,CALCULATED 13.3 g/dL Normal 12.0 - 16.0 [facility] Comment on above: Performed By: #### V FPA3 #### [facility] [address] [place] [address] Lactate [Moles/Vol] 1.2 mmol/L Normal 0.4 - 2.0 [facility] Comment on above: Performed By: #### V FPA3 #### [facility] [address] [place] [address] Oxygen (Bld) [Partial pressure] 56 mm[Hg] High 35 - 45 [facility] Comment on above: Performed By: #### V FPA3 #### [facility] [address] [place] [address] PATIENT TEMPERATURE 37.0 degrees C Normal [facility] Comment on above: Result Comment: NOTE : PATIENT RESULTS ARE NOT CORRECTED FOR TEMPERATURE. Performed By: #### V FPA3 #### [facility] [address] [place] [address] PCO2 42 mmHg Normal 41 - 51 [facility] Comment on above: Performed By: #### V FPA3 #### [facility] [address] [place] [address] pH (Bld) 7.44 [pH] High 7.33 - 7.43 [facility] Comment on above: Performed By: #### V FPA3 #### [facility] [address] [place] [address] Potassium [Moles/Vol] 4.1 mmol/L Normal 3.5 - 5.3 [facility] Comment on above: Performed By: #### V FPA3 #### [facility] [address] [place] [address] SO2 91 % High 45 - 75 [facility] Comment on above: Performed By: #### V FPA3 #### [facility] [address] [place] [address] Sodium [Moles/Vol] 133 mmol/L Low 136 - 145 [facility] Comment on above: Performed By: #### V FPA3 #### [facility] [address] [place] [address] CORONAVIRUS 2019, SCREEN ASY MPTOMATICon 09-17-2021 SARS-CoV-2 (COVID-19) RNA ADRIÁN+probe Ql (Unsp spec) Not detected Normal Not Detected [facility] Comment on above: Result Comment: . This test has received FDA Emergency Use Authorization (EUA) and has been verified by [facility] ([facility]). This test is only authorized for the duration of time that circumstances exist to justify the authorization of the emergency use of in vitro diagnostic tests for the detection of SARS-CoV-2 virus and/or diagnosis of COVID-19 infection under section 564(b)(1) of the Act, 21 U.S.C. 360bbb-3(b)(1), unless the authorization is terminated or revoked sooner. [facility] is certified under CLIA-88 as qualified to perform high complexity testing. Testing is performed in the [facility] located at [address] [place] [address]. SARS-CoV-2/Flu/RSV Multiplex Test: Fact sheet for providers: https://www.fda.gov/media/337604/download Fact sheet for patients: https://www.fda.gov/media/948977/download Performed By: #### C OVSC ####[id number] [place] [address] Lab Specimen Source Nasal, Nasopharyngeal Normal [facility] Comment on above: Performed By: #### C OVSC ####[id number] [place] [address] Coronavirus 2019 RNA by PCR, Screening Asymptomticon 09-17-2021 Coronavirus 2019 RNA by PCR, Screening Asymptomtic Not detected Normal See Below -[facility] [place] Work Phone: Comment on above: SOURCE: Nasal, Nasop haryngealReference Range: Not Detected.This test has received FDA Emergency Use Authorization (EUA) and has been verified by [facility] ([facility]). This test is only authorized for the duration of time that circumstances exist to justify the authorization of the emergency use of in vitro diagnostic tests for the detection of SARS-CoV-2 virus and/or diagnosis of COVID-19 infection under section 564(b)(1) of the Act, 21 U.S.C. 360bbb-3(b)(1), unless the authorization is terminated or revoked sooner. [facility] is certified under CLIA-88 as qualified to perform high complexity testing. Testing is performed in the [facility] located at [address] [place] [address].SARS-CoV-2/Flu/RSV Multiplex Test: Fact sheet for providers: https://www.fda.gov/media/097984/downloadFact sheet for patients: https://www.fda.gov/media/573299/download Covid 19 Resultson 2 SARS-CoV-2 (COVID-19) RNA [...] You may also be contacted by the [place] Department of Health to see if any [...] or Naproxen (Aleve) can also be used. Eyzs-too-rkjijkw cough and cold medicines can be used according to the instructions on the package. Some sgtq-qks-cktlztu medicines also contain acetaminophen. Make sure you [...] water are not available, use alcohol-based hand military pay technician. Avoid touching your eyes, nose, and [...] mariella (more content not included)... Normal [facility] Daily Progress Note - Psychi atryon 09-17-2021 [...] pain but found it well-controlled on Dilaudid MERCHANDISE EXAMINER and 5/10 mg oxycodone. Pt is interested [...] he has been working (cardoza at a [employer]), but she looks forward to his arrival [...] her suboxone. Objective: Objective Information: T PRBPSpO2 Value36.77123064/9095% Date/Time09/17 4: 10: 10:: 10:00 Range(35.7C - 36.6C ) (81 - 89 ) (10 - 23 ) (73 - 117 )/ (43 - 90 ) (91% - 96% ) As of 17-Sep-2021 08:00:00, patient is on 3 L/min of oxygen via nasal cannula. Pain reported at 09/17 8:00: 8 = Severe ---- Intake and Output ----- Mn/Dy/Year TimeIntakeOutputNet Sep 17, 2021 6:00 [id number] Sep 16, 2021 2:00 [id number] The Intake and Output Totals for the last 24 hours are: IntakeOutputNet [id number] Mental Status Exam: General: Awake, lying in [...] Da (more content not included)... Normal [facility] Daily Progress Note-Neurosur jinny 09-17-2021 Daily Progress Note-Neurosurgery Service: Neurosurgery Subjective Data: MORALES LEE is a 46 year old Female who is Hospital Day # 3. Objective Data: Objective Information: T PRBPSpO2 Value35.5349126/4393% Date/Time09/16 18:5409/16 18:5409/16 18:5409/16 18:5409/16 18:54 Range(35.7C - 36.4C ) (81 - 91 ) (15 - 24 ) (87 - 118 )/ (43 - 84 ) (91% - 96% ) As of 16-Sep-2021 18:54:00, patient is on 2 L/min of oxygen via nasal cannula. Pain reported at 09/16 16:34: 10 = Severe ---- Intake and Output ----- Mn[facility]Dy/[facility] Sep 16, 2021 2:00 [id number] Physical Exam by System: Neurological: A&Ox3 RUE [...] the note. I personally evaluated the patient [id number] Comments/ Additional Findings I again explained to [...] 19-Sep-2021 10:16 by Lex Frederick) Normal [facility] HCG,URINEon 09-17-2021 Beta HCG ( test) Ql (U) Negative Normal Negative [facility] Comment on above: Performed By: #### A FPA3 #### [facility] [address] [place] [address] Laboratory - Blood bankon ABO group Nom [...] REQUEST-LEUKOREDUCED RED CELLS ORDER RECD Normal [facility] Comment on above: Performed By: #### O RN ANTE PARTUM #### [facility] [address] [place] [address] TYPE + SCREENon 09-17-2021 ABO TYPE O Normal [facility] Comment on above: Performed By: #### T +S #### [facility] [address] [place] [address] RH TYPE Positive Normal [facility] Comment on above: Performed By: #### T +S #### [facility] [address] [place] [address] Urine Teston 09-17 HCG ( test) Ql (U) Negative Negative MG-Gastroen terology-Rosendo lwell 6 [facility] Work Phone: BNPon 09-16-2021 Natriuretic peptide B (Bld) [Mass/Vol] 37 pg/mL Normal 0 - 99 [facility] Comment on above: Result Comment: . <1 [...] information. Performed By: #### A FPA3 #### [facility] [address] [place] [address] CBC AND DIFFERENTIALon 09-16 % AUTOMATED IMMATURE GRAN 0.5 % Normal 0.0 - 0.9 [facility] Comment on above: Result Comment: Jaleesa ture Granulocyte Count (IG) includes promyelocytes, myelocytes and metamyelocytes but does not include bands. Percent differential counts (%) should be interpreted in the context of the absolute cell counts (cells/L). Performed By: #### C BCDF ####[id number] [place] [address] Basophils (Bld) [#/Vol] 0.04 10*3/uL Normal 0.00 - 0.10 [facility] Comment on above: Performed By: #### C BCDF ####[id number] [place] [address] Basophils/100 WBC (Bld) 0.5 % Normal 0.0 - 2.0 [facility] Comment on above: Performed By: #### C BCDF ####[id number] [place] [address] Eosinophils (Bld) [#/Vol] 0.26 10*3/uL Normal 0.00 - 0.70 [facility] Comment on above: Performed By: #### C BCDF ####[id number] [place] [address] Eosinophils/100 WBC (Bld) 3.0 % Normal 0.0 - 6.0 [facility] Comment on above: Performed By: #### C BCDF ####[id number] [place] [address] Erythrocyte distribution width (RBC) [Ratio] 13.0 % Normal 11.5 - 14.5 [facility] Comment on above: Performed By: #### C BCDF ####[id number] [place] [address] Hematocrit (Bld) [Volume fraction] 42.7 % Normal 36.0 - 46.0 [facility] Comment on above: Performed By: #### C BCDF ####[id number] [place] [address] Hemoglobin (Bld) [Mass/Vol] 14.1 g/dL Normal 12.0 - 16.0 [facility] Comment on above: Performed By: #### C BCDF ####[id number] [place] [address] Lymphocytes (Bld) [#/Vol] 3.17 10*3/uL Normal 1.20 - 4.80 [facility] Comment on above: Performed By: #### C BCDF ####[id number] [place] [address] Lymphocytes/100 WBC (Bld) 37.2 % Normal 13.0 - 44.0 [facility] Comment on above: Performed By: #### C BCDF ####[id number] [place] [address] MCHC (RBC) [Mass/Vol] 33.0 g/dL Normal 32.0 - 36.0 [facility] Comment on above: Performed By: #### C BCDF ####[id number] [place] [address] MCV (RBC) [Entitic vol] 91 fL Normal 80 - 100 [facility] Comment on above: Performed By: #### C BCDF ####[id number] [place] [address] Monocytes (Bld) [#/Vol] 0.47 10*3/uL Normal 0.10 - 1.00 [facility] Comment on above: Performed By: #### C BCDF ####[id number] [place] [address] Monocytes/100 WBC (Bld) 5.5 % Normal 2.0 - 10.0 [facility] Comment on above: Performed By: #### C BCDF ####[id number] [place] [address] Neutrophils (Bld) [#/Vol] 4.55 10*3/uL Normal 1.20 - 7.70 [facility] Comment on above: Performed By: #### C BCDF ####[id number] [place] [address] Neutrophils/100 WBC (Bld) 53.3 % Normal 40.0 - 80.0 [facility] Comment on above: Performed By: #### C BCDF ####[id number] [place] [address] NUCLEATED RBC 0.0 /100 WBC Normal 0.0-0.0 [facility] Comment on above: Performed By: #### C BCDF ####[id number] [place] [address] Platelets (Bld) [#/Vol] 278 10*3/uL Normal 150 - 450 [facility] Comment on above: Performed By: #### C BCDF ####[id number] [place] [address] RBC 4.70 x10E12/L Normal 4.00 - 5.20 [facility] Comment on above: Performed By: #### C BCDF ####[id number] [place] [address] WBC (Bld) [#/Vol] 8.5 10*3/uL Normal 4.4 - 11.3 [facility] Comment on above: Performed By: #### C BCDF ####[id number] [place] [address] COAGULATION SCREENon 022 aPTT Coag (Bld) [Time] 31 s Normal 26 - 39 [facility] Comment on above: Result Comment: Note new reference range as of 08/04/2021 at 10:00am. Performed By: #### V FPA3 #### [facility] [address] [place] [address] PT Coag (PPP) [Time] 11.6 s Normal 9.8 - 13.4 [facility] Comment on above: Result Comment: Note new reference range as of 08/04/2021 at 10:00am. Performed By: #### V FPA3 #### [facility] [address] [place] [address] PT, INR 1.0 Normal 0.9 - 1.1 [facility] Comment on above: Performed By: #### V FPA3 #### [facility] [address] [place] [address] Clinical Event Note-ADMISSIO N CLARIFICATIONon 09-16-2021 Clinical [...] and monitoring for withdrawal. Provider/Team Contact Info-Pager [phone] Electronic Signatures: Sharmin Guaman ([employer]RESTING [employer] OFFICER[employer]) (Signed 16-Sep-2021 12:07) Authored: Clinical Event Note Last Updated: 16-Sep-2021 12:07 by Sharmin Guaman ([employer]RESTING GEAR OFFICER-[employer]) Normal [facility] Complete Blood Count + Diffe rentialon 09-16-2021 [...] troen terology-Rosendo ell 6 I Work Phone: Complete [...] {x10E9/L} See Below MG-Gastroen terology-Rosendo lwell 6 [facility] Work Phone: Comment on above: [...] the note. I personally evaluated the patient [id number] Electronic Signatures: Chidi Lamar (Fellow)) (Signed 16-Sep-2021 [...] Consult - Psychiatry 15-Sep-2021 20:42 Normal [facility] Consult-Perioperative Medici neon 09-16-2021 Consult-Perioperative Medicine Service: [...] penicillin: Unknown Objective: Objective Information: T PRBPSpO2 Value36.10077476/8491% Date/Time09/16 11: 12:4909/16 12:4909/16 12:4909/16 12:49 Range(36.3C [...] mg (more content not included)... Normal [facility] Cult, Urineon 09-16-2021 Bacteria identified Cx Nom (U) Abnormal MG-Gastroen terology-Rosendo moura 6 [facility] Work Phone: Daily Progress Note-Neurosur geryon 09-16-2021 Daily Progress Note-Neurosurgery Service: Neurosurgery Subjective Data: MORALES LEE is a 46 year old Female who is Hospital Day # 3. Objective Data: Objective Information: T PRBPSpO2 Value36.0691058/6693% Date/Time09/16 1: 4: 4: 4: 4:00 Range(36.3C [...] HTN, C6-7 ACDFF, T1 comp fx s/p T1-12 lami c/b worseing kyphosis s/p 12/2020 L1 transpedic decompression/SPOs/T5-L4 fusion, b/l ulnar neuorpathies p/w thoracic kyphosis. Plan: OR 09/19 MRI L spine w/o medicine consult in AM chronic pain consult (suboxone) in AM COWS psych recs SCD's, [facility] Attestation: Note Completion: I am a: Resident/Fellow [...] the note. I personally evaluated the patient [id number] Comments/ Additional Findings TO OR this Tuesday if medically optimized for T12 - Pelvis fusion and Instrumentation. Pain consult for management regrading Suboxone and pain control in the perioperative period. US LE MRI of the lumbar spine., Lex Frederick MD, [facility], FAANS Director - Minimally Invasive Spine Surgery [facility] Stencil Cutter of Neurological Surgery [facility] [employer] [place], [place] Electronic Signatures: Fidel Maciel (Resident)) (Signed 16-Sep-2021 04:33) Authored: Service, Subjective Data, Objective Data, Assessment and Plan, Note Completion Lex Frederick) (Signed 16-Sep-2021 10:22) Authored: Note Completion Co-Signer: Service, Subjective Data, Objective Data, Assessment and Plan, Note Completion Last Updated: 16-Sep-2021 10:22 by Lex Frederick) Normal [facility] EMR ADDONon 09-16-2021 ADDON CONFIRMATION REQUEST REC'D Normal [facility] Comment on above: Performed By: #### E [...] above: . <100 pg/mL - Heart failure [id number] pg/mL - Intermediate probability of acute heart. [...] 3.5 g/dL Normal 3.4 - 5.0 [facility] Comment on above: Performed By: #### R ENAL #### [facility] [address] [place] [address] Anion gap [Moles/Vol] 14 mmol/L Normal 10 - 20 [facility] Comment on above: Performed By: #### R ENAL #### [facility] [address] [place] [address] Calcium [Mass/Vol] 8.9 mg/dL Normal 8.6 - 10.6 [facility] Comment on above: Performed By: #### R ENAL #### [facility] [address] [place] [address] Chloride [Moles/Vol] 101 mmol/L Normal 98 - 107 [facility] Comment on above: Performed By: #### R ENAL #### [facility] [address] [place] [address] Creatinine [Mass/Vol] 0.63 mg/dL Normal 0.50 - 1.05 [facility] Comment on above: Performed By: #### R ENAL #### [facility] [address] [place] [address] eGFR FEMALE >90 Normal >90 [facility] Comment on above: Result Comment: CALC ULATIONS OF ESTIMATED GFR ARE PERFORMED USING THE 2020 CKD-EPI STUDY REFIT EQUATION WITHOUT THE RACE VARIABLE FOR THE IDMS-TRACEABLE CREATININE METHODS. https://jasn.asnjournals.org/content/early//ASN.952 5171409 Performed By: #### R ENAL #### [facility] [address] [place] [address] Glucose [Mass/Vol] 88 mg/dL Normal 74 - 99 [facility] [facility] Comment on above: Performed By: #### R ENAL #### [facility] [address] [place] [address] HCO3 (Bld) [Moles/Vol] 29 mmol/L Normal 21 - 32 [facility] Comment on above: Performed By: #### R ENAL #### [facility] [address] [place] [address] Phosphate [Mass/Vol] 3.4 mg/dL Normal 2.5 - 4.9 [facility] Comment on above: Result Comment: The performance characteristics of phosphorus testing in heparinized plasma have been validated by the individual laboratory site where testing is performed. Testing on heparinized plasma is not approved by the FDA; however, such approval is not necessary. Performed By: #### R ENAL #### [facility] [address] [place] [address] Potassium [Moles/Vol] 3.7 mmol/L Normal 3.5 - 5.3 [facility] Comment on above: Performed By: #### R ENAL #### [facility] [address] [place] [address] Sodium [Moles/Vol] 140 mmol/L Normal 136 - 145 [facility] Comment on above: Performed By: #### R ENAL #### [facility] [address] [place] [address] Urea nitrogen [Mass/Vol] 10 mg/dL Normal 6 - 23 [facility] Comment on above: Performed By: #### R ENAL #### [facility] [address] [place] [address] Renal Function Panelon 09-16 Albumin BCP dye [Mass/Vol] 3.5 g/dL 3.4 - 5.0 [facility]-Gastroen [facility]ology-[facility] 6 [facility] Work Phone: Anion gap [Moles/Vol] [...] RACE VARIABLE FOR THE IDMS-TRACEABLE CREATININE METHODS.https://jasn.asnjournals.org/content/early /ASN.7809009588 UA MICROSCOPICon 09-16-2021 BACTERIA 2+ /HPF Abnormal [facility] Comment on above: Performed By: #### U [facility] ####[id number] [place] [address] Mucus Ql (Urine sed) 1+ /LPF Normal [facility] Comment on above: Performed By: #### U AMIC ####[id number] [place] [address] RBC 3 /HPF Normal 0-5 [facility] Comment on above: Performed By: #### U AMIC ####[id number] [place] [address] SQUAMOUS EPITH. CELLS 2 /HPF Normal [facility] Comment on above: Performed By: #### U AMIC ####[id number] [place] [address] WBC 115 /HPF Abnormal 0-5 [facility] Comment on above: Performed By: #### U AMIC ####[id number] [place] [address] URINALYSISon 09-16-2021 Appearance (U) HAZY Normal CLEAR [facility] Comment on above: Performed By: #### U A ####[id number] [place] [address] Bilirubin Ql (U) Negative Normal NEGATIVE [facility] Comment on above: Performed By: #### U A ####[id number] [place] [address] Color (U) YELLOW Normal STRAW,YELL OW [facility] Comment on above: Performed By: #### U A ####[id number] [place] [address] Glucose Ql (U) Negative Normal NEGATIVE [facility] Comment on above: Performed By: #### U A ####[id number] [place] [address] Hemoglobin Ql (U) Negative Normal NEGATIVE [facility] Comment on above: Performed By: #### U A ####[id number] [place] [address] Ketones Ql (U) Negative Normal NEGATIVE [facility] Comment on above: Performed By: #### U A ####[id number] [place] [address] Leukocyte esterase Test strip Ql (U) LARGE (3+) Abnormal NEGATIVE [facility] Comment on above: Performed By: #### U A ####[id number] [place] [address] Nitrite Ql (U) Positive Abnormal NEGATIVE [facility] Comment on above: Performed By: #### U A ####[id number] [place] [address] pH (U) 6.0 [pH] Normal 5.0 - 8.0 [facility] Comment on above: Performed By: #### U A ####[id number] [place] [address] Protein Ql (U) Negative Normal NEGATIVE [facility] Comment on above: Performed By: #### U A ####[id number] [place] [address] Specific gravity (U) [Rel density] 1.011 Normal 1.005 - 1.035 [facility] Comment on above: Performed By: #### U A ####[id number] [place] [address] Urobilinogen (U) [Mass/Vol] 2.0 mg/dL High 0.0 - 1.9 [facility] Comment on above: Result Comment: Due to [...] positive urobilinogen. Performed By: #### U A ####[id number] [place] [address] URINE CULTURE,BACTERIALon URINE CULTURE,BACTERIAL PATIENT: Fay LEE LOCATION: [facility] S[facility]OS#: [id number] : 71 AGE: SEX: F ORDERED BY: TOSHA BORJA SOURCE: URINE COLLECTED: 09/16/21 08:42 ANTIBIOTICS AT [facility].: RECEIVED : 09/16/21 17:08 SITE: [facility]an S U L T S URINE CULTURE,BACTERIAL FINAL 09/18/21 09:19 ISOLATE1 : Escherichia coli >100,000 CFU/ML Organism E coli Antibiotic BP INTRP Ampicillin S Ceftriaxone S Cefazolin S Ciprofloxacin R Nitrofurantoin S Gentamicin S Levofloxacin R Piperc/Tazobact S Trimeth/Sulfa S ___ S=SUSCEPTIBLE I=INTERMEDIATE R=RESISTANT SDD=SUSCEPTIBLE DOSE DEPENDENT NS=NONSUSCEPTIBLE X=REPORTED IN ERROR ___ Normal [facility] Comment on above: Performed By: #### A FPA3 #### [facility] [address] [place] [address] Urinalysison 09-16-2021 Color (U) YELLOW See Below [...] Negative NEGATIVE [facility]astro en [facility]ology-[facility] 6 [facility] Work Phone: Specific gravity (U) [Rel density] 1.011 1 See Below [facility]-Gastroen terology-[facility] 6 [facility] Work Phone: Comment on above: Reference Range: 1.0 05 - 1.035 Urinalysis Positive Abnormal NEGATIVE [facility]astroen [facility]ology-[facility] 6 [facility] Work Phone: Urinalysis 2.0 mg/dL above high threshold 0.0 - 1.9 [facility]-Gastroen terology-[facility] 6 [facility] Work Phone: Comment on above: [...] Urinalysis HAZY CLEAR [facility]Gastroen terology-[facility] 6 [facility] Work Phone: Urinalysis, Microscopicon Urinalysis, Microscopic 1+ M G-Gastroen terology-[place] 6 [facility] Work Phone: Urinalysis, Microscopic 2+ Abnormal M G-Gastroen terology-[place] [facility] 6 [facility] Work Phone: Urinalysis, Microscopic 2 {/HPF} M G-Gastroen terology-[place] 6 [facility] Work Phone: Urinalysis, Microscopic 3 {/HPF} 0-5 M G-Gastroen terology-[place] 6 [facility] Work Phone: Urinalysis, Microscopic 115 {/HPF} Abnormal 0-5 M G-Gastroen terology-[facility] 6 I Work Phone: VASC LAB Venous Duplex Ultra sound DVTon 09-16-2021 [facility] Venous Duplex Ultrasound DVT [place] [address] and Vascular Lab Report Lower Venous Duplex Ultrasound Patient Name: MORALES Parker JESUS [place] Physician: [id number] Arjun Romero MD, RPVI Study Date: 09/16/2021 Referring Physician: [id number] HARRISON RAGSDALE MRN/PID: [id number] PCP: Accession/Order#: [id number] CC Report to: Date of : 1975 Technologist: Greyson Burleson RVT Gender: F Technologist 2: Admission Status: Outpatient Location Performed: [facility] Diagnosis/ICD: M79.89-Left leg swelling; M79.89-Right leg swelling Procedure/CPT: 47387 Peripheral venous duplex scan for DVT complete-78169 CONCLUSIONS: Right Lower Venous: No evidence of [...] Spontaneous/Phasic Peroneal Yes None PTV Yes None [id number] Arjun Romero MD, RPCONSUELO Final Normal [facility] VAS LAB Venous Duplex Ultra sound for DVTon 09-16-2021 [facility] Venous Duplex Ultrasound for DVT MG-Gastroen terology-[facility] 6 [facility] Work Phone: No Panel Informationon 09-15 [email or web address] ?RetrieveTestByDateTime?P [email or web address]=[id number]&Date=1 09-05-2021&Time=19%3a14%3a 23%3a00&TestType=ECG&Site =1&OutputType=PDF&Ext=PDF [facility]-Gastroen terology-[facility] 6 [...] [facility]-Gastroen terology-[facility] 6 [facility] Work Phone: [phone] [facility]Gastroen terology-[facility] 6 [facility] Work Phone: [phone] [facility]-Gastroen terology-[place] 6 [facility] Work Phone: [phone] [facility]-Gastroen terology-[place] 6 [facility] Work Phone: 87 1 MG-Gastroen terology-[place] 6 I Work Phone: [email or web address] ?RetrieveTestByDateTime?P rdhjbnUR=[id number]&Date=1 09-05-2021&Time=19%3a14%3a 42%3a00&TestType=ECG&Site =1&OutputType=PDF&Ext=PDF [facility]astroen [facility]ology-[place] 6 I Work Phone: [phone] [facility]-Gastroen terology-[place] 6 I Work Phone: [phone] [facility]-Gastroen terology-[place] 6 I Work Phone: [phone] [facility]-Gastroen terology-[place] 6 [facility] Work Phone: [phone] MG-Gastroen terology-[place] 6 I Work Phone: [phone] [facility]-Gastroen terology-[place] 6 [facility] Work Phone: 27 1 [facility]-Gastroen terology-[place] 6 [facility] Work Phone: 31 1 [facility]-Gastroen terology-[place] 6 [facility] Work Phone: 46 1 [facility]-Gastroen terology-[place] 6 [facility] Work Phone: [phone] [facility]-Gastroen terology-[place] 6 [facility] Work Phone: [phone] [facility]-Gastroen terology-[place] 6 [facility] Work Phone: Order Reconciliationon 09-15 Order Reconciliation Page 1 Admission Reconciliation Document Reconciliation Type: Admission requested on behalf of Concetta Shi (Advanced Practice Nurse) done by Concetta Shi ([facility]) Admission - Reconciliation: 15-Sep-2021 19:03 by: [...] to Incomplete: 30-Sep-2021 14:18 by: Concetta Shi ([facility]) Admission - Reconciliation: 30-Sep-2021 14:20 by: Concetta Shi ([facility]) Home MedicationsEnteredLast Dose TakenReconciled with current Order Reconciliation Comment/ Additional Information acetaminophen 325 mg oral tablet 2 tab(s) orally every 6 hours, as needed while having post operative [id number] Reviewed and Held Ambien CR 12.5 mg oral tablet, extended release 1 tab(s) oral axg60-Dmr-6794 Zolpidem Tablet (AMBIEN)DOSE = 10 mg Oral At BedtimeNotes from Pharmacy: Substitution For Zolpidem (Ambien CR) 12.5 mg at Bedtime Ambien CR 12.5 mg oral tablet, extended release continued as the inpatient order Zolpidem Ankle Foot Orthosis for foot ttvh75-Xfk-4579 Reviewed and Held betamethasone topical valerate 0.1% topical cream 1 carlene topical prn 15-Sep-2021 EnteredInError Reviewed and Held Bilateral Prafos - orthotics to fit, - ICD 10: R26.0, M21.37, M62.81 30-Sep-2021 Reviewed and Held calcium-vitamin D 500 mg-200 intl units (5 mcg) oral tablet 1 tab(s) orally 4 times a lus21-Rcx-3126 Calcium 500 mg - Vitamin D 200 [...] times a day, as needed for muscle kzuafu05-Vgz-0621 Cyclobenzaprine Tablet (FLEXERIL)DOSE = 10 mg Oral [...] topical 1% topical gel 1 carlene topical uoj58-Vdg-1406 Reviewed and Held DULoxetine 30 mg oral [...] 2 tab(s) orally once a day, As Utboos75-Jxu-5068 Reviewed and Held gabapentin 800 mg oral tablet 1 tab(s) oral 3 times a vry90-Grf-4007 Gabapentin Capsule (NEURONTIN)DOSE = 800 mg Oral 3 Times a Day gabapentin 800 mg oral tablet continued as the inpatient order Gabapentin LEFT AFO -Orthotics to fit, ICD 10: M21.3084-Rlt-6053 Reviewed and Held lidocaine 5% topical film Apply topically to affected area once a day, As Needed near surgical incision for incisional pain 15-Sep-2021 EnteredInError Reviewed and Held lisinopril 20 mg oral tablet 1 tab(s) oral once a fiy61-Bis-2408 Lisinopril Tablet (PRINIVIL, ZESTRIL)DOSE = 20 mg [...] - available over the counter at any vbjkfchi55-Dgj-0220 Reviewed and Held RIGHT AFO - Orthotics to fit, - M21.6125-Fos-6329 Reviewed and Held sennosides-docusate 8.6 mg-50 mg oral tablet 2 tab(s) orally 2 times a day , -Take while using oxycodone for post operative pain to prevent contipation 15-Sep-19 (more content not included)... Normal [facility] Radiologyon 09-15-2021 XR Chest Single view Normal MG-G astroen terology-Rosendo moura 6 [facility] Work Phone: TH CHEST 1 VIEWon 09-15-2021 TH CHEST 1 VIEW Patient Name: MORALES LEE STUDY: CHEST 1 VIEW; 09/15/2021 7:21 pm INDICATION: pre-op . COMPARISON: 12/26/2020. ACCESSION NUMBER(S): [id number] ORDERING CLINICIAN: TOSHA BORJA FINDINGS: CARDIOMEDIASTINAL SILHOUETTE: [...] Electronically signed by: Pedro PEDERSON MD Normal [facility] Established Visit (Neurosurg ariana)on 09-08-2021 Established Visit [...] in the Neurosurgery Spine Clinic at the [facility]. She is a very pleasant 46-year-old female, [...] obvious instability (more content not included)... Normal [facility] No Panel Informationon 09-08 Normal MG-Neurosur Yanira [...] and T6-L4 Fusion. COMPARISON: None. ACCESSION NUMBER(S): [id number] ORDERING CLINICIAN: LEX FREDERICK FINDINGS: Fused PA [...] Electronically signed by: JOSEPH SALAZAR MD Normal [facility] Tobacco Screening.on 022 Fall risk assessment b) One or more fall s in the last year MG-Nuha Doyle Work Phone: Tobacco use status CPHS a) Yes M [facility] Work Phone: Established Visit (Neurosurg ariana)on 05-05-2021 Established Visit (Neurosurgery) History of Present Illness I just had the pleasure of seeing Mrs. Jesus villarreal in the Neurosurgery Spine Clinic at the [facility]. She is a very pleasant 45 -year-old female, who recently underwent a L1 Vertbrectomy and T6-L4 Fusion with me on 12/26/2020 and is status post 4 Months out from her surgery. Today's visit was a virtual visit with the patient at her home and myself at [facility]. She mentions that overall she [...] in Ms. LEE care. Lex Frederick MD, [facility], FAANS Director - Minimally Invasive Spine Surgery [facility] Stencil Cutter of Neurological Surgery [facility] Medicine [place], [place] Some of this note was completed using [employer] voice recognition technology and sometimes the software [...] in the Neurosurgery Spine Clinic at the [facility]. She is a very pleasant 45 -year-old female, who recently underwent a L1 Vertbrectomy and T6-L4 Fusion with de on 12/26/2020 and is status post 2 [...] the further treatment plan. Lex Frederick MD, [facility], FAANS Director - Minimally Invasive Spine Surgery [facility] Maintenance Mechanic Helper of Neurological Surgery [facility] of Medicine [place], [place] Some of this note was completed using [employer] voice recognition technology and sometimes the software [...] Allergies Medication Codeine Hives;; Recorded By: Lucero Lorwy; 10/28/2020 12:18:23 PM Penicillins Hives;; Recorded By: [...] Unspecified cord compression. COMPARISON: None. ACCESSION NUMBER(S): [id number] ORDERING CLINICIAN: LEX FREDERICK TECHNIQUE: Multiplanar and [...] spine. Electronically signed by: LENNY HAGER MD [facility] NR MRI L-SPINE WOon 12-12-19 NR MRI L-SPINE WO Patient Name: MORALES LEE STUDY: MRI L-SPINE WO; ; 12/11/2020 1:38 pm INDICATION: Lumbar Pain Scoliosis, unspecified Low back pain. COMPARISON: CT lumbar spine from 10/07/2020. MRI lumbar spine from 03/11/2016. ACCESSION NUMBER(S): [id number] ORDERING CLINICIAN: LEX FREDERICK TECHNIQUE: MRI of [...] multiple levels. This study was interpreted at [facility]. Electronically signed by: WESLEY CARBAJAL MD [facility] Initial Visit (Neurosurgery) on 10-28-2020 Initial [...] Status:Resulted - Preliminary,Retrospective By Protocol Authorization; Done: [id number] 12:00AM Reason: Unspecified for Xray Spine, entire thoracic/lumbar, include skull, cervical and sacral spine when performed, 2 or 3 view Radiologist to Determine Optimal Study : Y What are the patient's signs and symptoms? : Lumbar Pain SocHx: Current smoker Tobacco Use Screening; Status:Complete; Done: 28Oct2020 Patient Discussion/Summary It was a pleasure to see Ms. LEE at the Neurosurgery Spine Clinic at [facility]. Ms. LEE is a really nice [...] and thoracic kyphosis few years back in [place]. She now has been having severe symptoms [...] by another spine surgeon at the [facility] who recommended urgent surgery for her [...] even walk (more content not included)... [facility] Telephone (SPNMMN) ----- MORALES LEE ([id number]) 1975 F Date Time Provider Department 07/10/19 [...] Order(s):CONSULT TO ORTHOPAEDIC SURGERY [[id number]] Order #: [id number]: 1 Prescriptions as of 07/10/2019 Sig: LISINOPRIL [...] DIXIE TEE MD on 07/10/19 [facility] Luisana 07-09-2019 CNOV Office Visit (SPNSMN ) ----- MORALES LEE ([id number]) 1975 F Date Time Provider Department 07/09/19 9:30 AM STEVENSON QUAN SPNSMN During your visit today, we recorded the following information about you: Pulse Respiration Blood pressure Weight 89/minute 18/minute 124/74 95.8 kg Height 1.499 m Stevenson Quan MD 07/09/2019 2:56 PM Signed SPINE SURGERY OUTPATIENT CONSULT SERVICE DATE: 07/09/2019 PCP: No primary care provider on file. REFERRING PROVIDER: Dixie Tee MD [address] [facility] [address] Consult requested for an opinion regarding the [...] file Gets together: Not on file Attends mormon service: Not on file Active member of [...] with the patient or the patient?s personal retail sales representative. 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 PROGRESSon 07-09-2019 PROGRESS HNO ID: [id number] Author: Stevenson Quan Service: ? Author Type: Physician Type: Progress Notes Filed: 07/09/2019 2:56 PM Note Text: SPINE SURGERY OUTPATIENT CONSULT SERVICE DATE: 07/09/2019 PCP: No primary care provider on file. REFERRING PROVIDER: Dixie Tee [facility] [address] [facility] [address] Consult requested for an opinion regarding the [...] file Gets together: Not on file Attends mormon service: Not on file Active member of [...] with the patient or the patient?s personal retail sales representative. The patient has elected to [...] 2019 TIME: 10:24 AM PAGER: Normal [facility] OT-XR DEXA BONE DENSITY IMPO RTon 07-06-2019 OT-XR DEXA BONE DENSITY IMPORT Images were obtained outside of [facility] [id number] Normal [facility] CASE MGT INIT [facility] 2018 CASE MGT INIT [facility] HNO ID: [id number] Author: Kimberly (Rn) EVARISTO Dunaway Service: ? Author Type: Registered Nurse Type: Care Mgt Initial Assessment Filed: 06/20/2019 12:25 PM Note Text: CARE MANAGEMENT: ASSESSMENT AND DISCHARGE PLAN SERVICE DATE: 06/20/2019 SERVICE TIME: 12:21 PM PRIMARY CARE PHYSICIAN: No primary care provider on file. 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 No Advance Directive: Current Advance Directive: None Glass Cleaning Machine Tender Attempted to Assist with AD Completion: Yes [...] Emergency Contact: Lars Lee [address] [place] [address] [facility] Mobile Relation: Spouse Supportive: Yes [...] 0 I feel financially burdened by my hce-ou-datmxt expenses for my prescription medication: Disagree completely [...] with . Does not utilize any DME, detention or community resources. Has d/c transportation via . Anticipate transitional care plan of home, no skilled needs identified at this time. TCC will remain available to assist as needed with transition planning. SIGNATURE: Kimberly Dunaway RN PATIENT NAME: Morales Lee DATE: June 20, 2019 TIME: 12:21 PM PAGER/CONTACT #: [phone] Normal [facility] CBCon 06-20-2019 Erythrocyte distribution width (RBC) [Ratio] 12.6 % Normal 11.5-15.0 [facility] Comment on above: Performed By: #### C BC #### [place] [phone] Hematocrit (Bld) [Volume fraction] 48.7 % High 36.0-46.0 [facility] Comment on above: Performed By: #### C BC #### [place] [phone] Hemoglobin (Bld) [Mass/Vol] 16.8 g/dL High 11.5-15.5 [facility] Comment on above: Performed By: #### C BC #### [place] [phone] MCH (RBC) [Entitic mass] 31.1 pG Normal 26.0-34.0 [facility] Comment on above: Performed By: #### C BC #### [place] [phone] MCHC (RBC) [Mass/Vol] 34.5 g/dL Normal 30.5-36.[address] [facility] Comment on above: Performed By: #### C BC #### [place] [phone] MCV (RBC) [Entitic vol] 90.0 fL Normal 80.0-100.0 [facility] Comment on above: Performed By: #### C BC #### [place] [phone] Platelet mean volume (Bld) [Entitic vol] 10.6 fL Normal 9.0-12.7 [facility] Comment on above: Performed By: #### C BC #### [address] [address] Platelets (Bld) [#/Vol] 334 10*3/uL Normal 150-400 [facility] Comment on above: Performed By: #### C BC #### [address] [address] RBC (Bld) [#/Vol] 5.41 10*6/uL High 3.90-5.20 [facility] Comment on above: Performed By: #### C BC #### [place] [address] WBC (Bld) [#/Vol] 10.85 10*3/uL Normal 3.70-11.00 [facility] Comment on above: Performed By: #### C BC #### [place] [address] CONSULTon 06-20-2019 CONSULT HNO ID: [id number] Author: Evelyn Resendez Service: Pain Management Author [...] controlled substances - including suboxone - from [facility]. Of note, pt has followed [...] me to leave. She is now leaving [place]. 3. Will sign off _ SUBJECTIVE CHIEF [...] activity was identified. 06/20/2019 by Evelyn Resendez APRN.HEALTH ACTUARY PAST MEDICAL HISTORY Diagnosis Date - Degenerative [...] file Gets together: Not on file Attends mormon service: Not on file Active member of [...] the Morales Lee's care. SIGNATURE: Evelyn Resendez APRN.HEALTH ACTUARY PATIENT NAME: Morales Lee DATE: June 20, 2019 TIME: 8:24 AM PAGER/CONTACT #: [phone] (M-F 8-5) [facility] CT BRAIN WO IVCONon 06-20-[address] BRAIN WO IVCON * * *Final Report* * * DATE OF EXAM: Jun 20 2019 1:31AM [facility] 0504 - CT BRAIN WO IVCON [...] No large cortical infarct or acute hemorrhage. Nurse Orthopedic: ADITYA Transcribe Date/Time: Jun 20 2019 1:33A Dictated by : DAVONTE MOY MD This examination was interpreted and the report reviewed and electronically signed by: DAVONTE MOY MD on Jun 20 2019 1:35AM EST [id number] [facility] ECG COMPLETEon 06-20-2019 ECG COMPLETE NAME : MORALES LEE PID : [id number] : 1975 Gender : Female Race : ORD : [id number] Procedure Date : Jun 19 2019 23:57:03 Edit Date : Jun 20 2019 07:51:18 Diagnosis:Sinus rhythm Normal ECG no STEMI 1200a Confirmed by MD CORBY, MAYI ([id number]), offline editor IVANNA WALTON ([id number]) on 06/20/2019 7:51:18 AM Ventricular Rate : 85 BPM Atrial Rate : 85 BPM P-R Interval : 137 ms QRS Duration : 91 ms Q-T Interval : 365 ms QTC Calculation(Bazett) : 434 ms P [place] : 51 degrees R [place] : -13 degrees T [place] : 61 degrees Test Reason : Chest Pain Location : 302 : ED AVED-1 Overread By : MD ARREDONDO LISA Edited By : IVANNA WALTON Referred By : , Acquired by : [id number], [facility] ED NOTEon 06-20-2019 ED NOTE HNO ID: [id number] Author: Yuki Mckenzie) EVARISTO Cruz Service: ? Author Type: Registered Nurse Type: ED Notes Filed: 06/20/2019 1:40 AM Note Text: Patient got CT, it is still pending and Jessie BONITA said ok to transfer to [place] with out results pending. Patient agreeing and understanding of transfer. updated on POC and transfer via telephone. DM here to take patient at this time. Pain is not improved at time of transfer. [facility] ED NOTE HNO ID: [id number] Author: Yuki Cruz RN Service: ? Author Type: Registered Nurse Type: ED Notes Filed: 06/20/2019 1:15 AM Note Text: Clean catch urine specimen obtained and sent. [facility] ED NOTE HNO ID: [id number] Author: Yuki Cruz RN Service: ? Author [...] time with getting transferred to another facility. [facility] ED NOTE HNO ID: [id number] Author: Yuki Cruz RN Service: ? Author Type: Registered Nurse Type: ED Notes Filed: 06/20/2019 3:28 AM Note Text: Patient stated Valium did not help. She continues to be in pain and upset. She wanted to speak with someone in charge and update on POC. Normal [facility] HISTORY PHYSICALon 9 HISTORY PHYSICAL HNO ID: [id number] Author: Talita Wesley RN Service: General Internal [...] tightness that is constant. Notices a decreased information systems operator strength and weakness in left hand. [...] pressure, palpitations, leg swelling. Denies hx of AR. GI: Denies nausea, vomiting, diarrhea, abdominal pain, [...] rotation 40/80% Decreased left C5-C7 sensation. Left information systems operator strength 2/5. Right information systems operator strength 5/5. UE DTR intact and [...] tightness into left arm, weak left hand information systems operator strength, and worsening severity of numbness/tingling [...] Needs confirmed with patient pharmacy. Patient uses [facility] in [place], [place]. Patient provided #[phone]. Will call in am to confirm dose. Nicotine Abuse Assessment AND Plan: Smokes 1 1/2 PPD for 20 years. Smoking cessation advised. Nicotine patch ordered. Medication and Non-Pharmacologic VTE Prophylaxis/Anticoagulant s VTE Prophylaxis: VTE prophylaxis appropriate SIGNATURE: Talita Wesley APRN.CNP PATIENT NAME: Morales Lee DATE: June 20, 2019 TIME: 2:58 AM PAGER/CONTACT #: [facility] # [phone] [facility] NURSING PROGon 06-20-2019 NURSING PROG HNO ID: [id number] Author: Austyn (Rn) EVARISTO Berumen Service: Nursing Author Type: Registered Nurse Type: Nursing Progress Note Filed: 06/20/2019 3:10 PM Note Text: Nursing Progress Note Patient Name: Morales Lee Patient Location: [id number] -02 Daily Note:06/20/2019 -pt is upset regarding [...] note was completed by: AUSTYN BERUMEN RN [facility] NURSING PROG HNO ID: [id number] Author: Austyn WilksRn) EVARISTO Berumen Service: Nursing Author Type: Registered Nurse Type: Nursing Progress Note Filed: 06/20/2019 8:10 AM Note Text: Nursing Progress Note Patient Name: Morales Lee Patient Location: [id number] -02 Daily Note:06/20/2019 -assumed care of patient, pt is requesting her suboxone. We have to call to verify dosage. -EVARISTO Acosta called pharmacy provided by night SILK EXAMINER and the pharmacy does not open until 9am. We will call back to verify dose later. -Dr. Kwon called to speak with this RN, he will be in to see the patient later today. This note was completed by: AUSTYN BERUMEN RN [facility] NURSING PROG HNO ID: [id number] Author: Guadalupe Mckenzie) EVARISTO Herbert Service: ? Author Type: Registered Nurse Type: Nursing Progress Note Filed: 06/20/2019 4:33 AM Note Text: Nursing Progress Note Patient Name: Morales Lee Patient Location: [id number] - Daily Note:DACIAO x 3. C/O left hand [...] note was completed by: Guadalupe Herbert RN [facility] PROGRESSon 06-20-2019 PROGRESS HNO ID: [id number] Author: Sedrick Martin Service: General Internal Medicine [...] rales. Cor:RSR, no murmurs. 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 CORRECTIONAL NURSE; as noted on admission. DATA: Diagnostic tests [...] VTE Prophylaxis/Anticoagulant s 06/20/19399 pneumatic compression stockings (ri,ar) 06/20/19399 activity - mobilize patient ([place]) VTE Prophylaxis: appropriate SIGNATURE: Sedrick Martin MD PATIENT NAME: Morales Lee DATE: June 20, 2019 TIME: 10:41 AM PAGER: Normal [facility] PROGRESS HNO ID: [id number] Author: Sedrick Martin Service: General Internal Medicine Author Type: Physician Type: Progress Notes Filed: 06/20/2019 8:25 AM Note Text: As per Pain Management Consult still pending, I was notified by Pain Management to resume the pt.' s home Suboxone dosage until pt. Seen later today. Normal [facility] Troponin Ton 06-20-2019 Troponin T.cardiac [Mass/Vol] ug/L Normal 0.000-0.[address] [place] [address] Comment on above: Performed By: #### T NT #### [id number] [place] [address] Troponin T.cardiac [Mass/Vol] ug/L Normal 0.000-0.[address] [place] [address] Comment on above: Performed By: #### T NT #### [place] [phone] Basic Metabolic Panlon 06-19 Anion gap [Moles/Vol] 14 mmol/L Normal 9-18 [facility] Calcium [Mass/Vol] 10.3 mg/dL High 8.5-10.2 [facility] Chloride [Moles/Vol] 96 mmol/L Low 97-105 [facility] CO2 [Moles/Vol] 29 mmol/L Normal 22-30 [facility] Creatinine [Mass/Vol] 0.59 mg/dL Normal 0.58-0.96 [facility] eGFR- Amer. >60 Normal [facility] GFR/1.73 sq M predicted among non-blacks MDRD (S/P/Bld) [Vol rate/Area] mL/min/{1.73_m2} Normal [facility] Comment on above: Result Comment: eGFR [...] GFR. Glucose [Mass/Vol] 114 mg/dL High 74-99 [facility] Comment on above: Result Comment: The [place] Diabetes Association (ADA) provides guidance for cutoff [...] Standards of Medical Care in Diabetes 2016, [place] [employer]. Diabetes Care. 2016.39(Suppl 1). Potassium [Moles/Vol] 3.7 mmol/L Normal 3.7-5.1 [facility] Sodium [Moles/Vol] 139 mmol/L Normal 136-144 [facility] Urea nitrogen [Mass/Vol] 7 mg/dL Normal 7-21 [facility] CBC and Differentialon 06-19 Abs Baso 0.09 k/uL Normal <0.11 [facility] Abs [place] 0.61 k/uL Normal <0.87 [facility] Abs Neut 7.56 k/uL High 1.45-7.50 [facility] Absolute nRBC <0.01 Normal <0.01 [facility] Basophils/100 WBC (Bld) 0.7 % Normal [facility] DTYPE Auto Diff Normal [facility] Eosinophils (Bld) [#/Vol] 0.25 10*3/uL Normal <0.46 [facility] Eosinophils/100 WBC (Bld) 1.9 % Normal [facility] Erythrocyte distribution width (RBC) [Ratio] 12.0 % Normal 11.5-15.0 [facility] Hematocrit (Bld) [Volume fraction] 52.6 % High 36.0-46.0 [facility] Hemoglobin (Bld) [Mass/Vol] 18.0 g/dL High 11.5-15.5 [facility] Lymphocytes (Bld) [#/Vol] 4.67 10*3/uL High 1.00-4.00 [facility] Lymphocytes/100 WBC (Bld) 35.4 % Normal [facility] MCH (RBC) [Entitic mass] 30.0 pG Normal 26.0-34.0 [facility] MCHC (RBC) [Mass/Vol] 34.2 g/dL Normal 30.5-36.0 [facility] MCV (RBC) [Entitic vol] 87.7 fL Normal 80.0-100.0 [facility] Monocytes/100 WBC (Bld) 4.6 % Normal [facility] Neutrophils/100 WBC (Bld) 57.4 % Normal [facility] NRBCs 0.0 /100 WBC Normal 0 [facility] Platelet mean volume (Bld) [Entitic vol] 10.1 fL Normal 9.0-12.7 [facility] Platelets (Bld) [#/Vol] 370 10*3/uL Normal 150-400 [facility] RBC (Bld) [#/Vol] 6.00 10*6/uL High 3.90-5.20 [facility] WBC (Bld) [#/Vol] 13.18 10*3/uL High 3.70-11.00 [facility] ED NOTEon 06-19-2019 ED NOTE HNO ID: [id number] Author: Yuki Mckenzie) EVARISTO Cruz Service: ? Author Type: Registered Nurse Type: ED Notes Filed: 06/20/2019 3:27 AM Note Text: Patient has requested valium, she says that she takes it at home. [facility] updated. [facility] ED NOTE HNO ID: [id number] Author: Yuki Mckenzie) EVARISTO Cruz Service: ? Author Type: Registered Nurse Type: ED Notes Filed: 06/20/2019 3:27 AM Note Text: Patient is complaining of nausea. She is requesting her saboxon as well and Biago was updated on request. [facility] ED NOTE HNO ID: [id number] Author: Yuki WilksRn) EVARISTO Cruz Service: ? Author Type: Registered Nurse Type: ED Notes Filed: 06/19/2019 7:54 PM Note Text: Said that after her surgery in 2016 her left pinky and ring finger are numb but she said lately her other fingers on that hand have been getting numb as well. [facility] ED NOTE HNO ID: [id number] Author: Vanessa WilksRn) EVARISTO Riuz Service: ? Author Type: Registered Nurse Type: ED Notes Filed: 06/19/2019 6:48 PM Note Text: Patient has chronic neck pain for three years. Saw spine doctor 06/12/2019 for the same had x rays. Denies any new injury. States pain goes into left arm. Arrived via wheelchair [facility] ED PROV NOTEon 06-19-2019 ED PROV NOTE HNO ID: [id number] Author: Mayi Arredondo Service: Emergency Medicine Author [...] light touch over bilateral lower extremities. 3/5 information systems operator, bicep, tricep strength over LUE. Decreased sensation to light touch over left upper extremity in median, radial, and ulnar nerve distribution. 5/5 information systems operator, bicep, tricep strength of R UE. [...] neurosurgical consult as previous notes from her aircraft electrical systems specialist recommend obtaining EMG and possible further [...] a neurosurgical consult she warrants transfer to [facility] for further management of her condition. We have low suspicion for stroke at this time as pain appears to be radicular in nature and she has had worsening progression of her symptoms with documented notes from spine (Dr. Álvarez) suggesting this worsening pain and numbness. The [facility], Talita, at [facility] recommended we obtain a CT brain and she must rule out any acute intercranial abnormality that may be contributing to the patient's symptoms. Therefore, this study was ordered and will be followed up by the night team especially if there is any acute intracranial abnormality. As long as there is no acute intracranial abnormality she will be transferred to [facility] for further evaluation and management of her condition. Patient voiced understanding was in agreement with the above plan. This patient's case was discussed with Dr. Arredondo who personally evaluated the patient supervised her care. The patient was TRANSFERRED to: [facility] Condition at time of disposition: stable SIGNATURE: NORMA Montgomery (Pa) 06/20/19 0026 Attending Note I have personally performed a face to face assessment of the patient and have reviewed the PA/GIS SOFTWARE DEVELOPER note. My schofield findings include: History is [...] of 5 strength left upper extremities in information systems operator strength as well as biceps and [...] worsening neck pain we will place her [place] observation for cardiac rule out as [...] and requested by the observation provider at [place] as they were concerned about stroke. However I doubt this and did not feel this was necessary however it is currently pending and patient will be transferred to [place] if this is unremarkable. Signature: Mayi Arredondo, Date: 06/20/2019 Time: 12:26 AM Mayi Arredondo 06/20/19 0033 Normal [facility] Magnesiumon 06-19-2019 Magnesium [Mass/Vol] 2.0 mg/dL Normal 1.7-2.3 [facility] Troponin Ton 06-19-2019 Troponin T.cardiac [Mass/Vol] ug/L Normal 0.000-0.02 9 [facility] CNOVon 06-12-2019 CNOV Office Visit (SPNMMN ) ----- MORALES LEE ([id number]) 1975 F Date Time Provider Department 06/12/19 [...] file Gets together: Not on file Attends mormon service: Not on file Active member of [...] DATE: June 12, 2019 TIME: 8:12 AM Dxiie Tee MD 06/12/2019 9:15 AM Addendum Referring [...] [Z98.890] Order(s):PATIENT PLACED ON SPINE CARE PATH [5598974] Order #: [id number]: 1 XR SCOLIOSIS PA STAND/LAT 2V [[id number]] Order #: [id number] FUTURE EMG(NEURO/NI) [[id number]] Order #: [id number]: 1 FUTURE CONSULT TO SPINE SURGERY [[id number]] Order #: [id number]: 1 FUTURE Prescriptions as of 06/12/2019 Sig: [...] taking TOPIRAMATE 100 MG TABLET >> Talita Lightaurora Dasilva 06/12/2019 8:07 AM >> ELVER DASILVATALITA Gutierrez Jun 12, 2019 8:07 AM Not taking [...] DIXIE TEE MD on 06/12/19 [facility] PROGRESSon 06-12-2019 PROGRESS HNO ID: [id number] Author: Zoey Aponte (Rt) Robert Trejo Service: Radiology Author Type: Automotive Shop Foreman Type: Progress Notes Filed: 06/12/2019 10:10 AM [...] June 12, 2019 10:09 AM [facility] PROGRESS HNO ID: [id number] Author: Dixie Tee Service: ? Author Type: [...] records and was triaged via the surgical team- Ollie and referred here. Patient notes she was [...] file Gets together: Not on file Attends mormon service: Not on file Active member of [...] healed incisions. Chest: symmetric expansion Data Review: [facility] records reviewed Care everywhere [...] 12, 2019 TIME: 8:[address] [facility] XR SCOLIOSIS 2V PA STAND/LAT on [...] changes and multilevel compression deformities as described. Nurse Orthopedic: PSCB Transcribe Date/Time: Jun 12 2019 4:36P Dictated by : CAROLINA MOJICA MD This examination was interpreted and the report reviewed and electronically signed by: CAROLINA MOJICA MD on Jun 12 2019 4:39PM EST [id number] Normal [facility] PROGRESSon 05-14-2019 PROGRESS HNO ID: [id number] Author: Laury Levin Service: ? Author Type: Physician Inkjet Operator Type: Progress Notes Filed: 05/14/2019 1:26 [...] rule out cubital tunnel syndrome. Normal [facility] PROGRESSon 05-09-2019 PROGRESS HNO ID: [id number] Author: Kathia Kelly Service: ? Author Type: ? Type: Progress Notes Filed: 05/14/2019 1:26 PM Note Text: Patient name: Morales Lee Are you being referred by a [facility] Provider or Pain Management Provider at [facility]? No If answer is YES please schedule directly with surgeon, triage does not need to be completed. Is this a self-referral No If not, who is the Referring Provider: Dr. Hendricks/ [facility] MRI/CT/myelogram within 12 months: Yes If No , please refer to medical spine or PCP to complete above imaging, triage does not need to be completed Imaging viewable in Epic: No If not, please provide [phone] to fax in imaging reports for review. [...] will fax imaging report and op notes. [phone] [facility] CT-CT C-SPINE WO CON IMPORTo n 02-13-2019 CT-CT C-SPINE WO CON IMPORT Images were obtained outside of [facility] [id number] Normal [facility] CT-CT L-SPINE WO CON IMPORTo n 02-13-2019 CT-CT L-SPINE WO CON IMPORT Images were obtained outside of [facility] [id number] Normal [facility] Vital Signs Date Time Vital Sign Value Performing Clinician Facility 10-01-2024 16:15-0500 Diastolic blood pressure 79 mm[Hg] Greyson Marcelo DO Work Phone: [email or web address] 10-01-2024 16:15-0500 Heart rate 68 /min Greyson Marcelo DO Work Phone: [email or web address] 10-01-2024 16:15-0500 Respiratory rate 14 /min Greyson Robertson DO Work Phone: [facility] [email or web address] 10-01-2024 16:15-0500 SaO2% (BldA) [Mass fraction] 96 % Greyson Robertson DO Work Phone: [facility] 10-01-2024 16:15-0500 Systolic blood pressure 120 mm[Hg] Greyson Robertson DO Work Phone: [facility] 10-01-2024 08:16-0500 Body temperature 98.01 [degF] Greyson Robertson DO Work Phone: [facility] 10-01-2024 00:23-0500 Body height 152.4 cm Greyson Robertson DO Work Phone: [facility] 10-01-2024 00:23-0500 Body mass index (BMI) [Ratio] 37.89 kg/m2 Greyson Robertson DO Work Phone: [facility] 10-01-2024 00:23-0500 Body weight 88 kg Greyson Robertson DO Work Phone: [facility] 05-14-2024 09:48-0400 Body height 157.5 cm Genny Orosco SILK EXAMINER Work Phone: [facility] 05-14-2024 09:48-0400 Body mass index (BMI) [Ratio] 34.75 kg/m2 Genny Orosco SILK EXAMINER Work Phone: [facility] 05-14-2024 09:48-0400 Body temperature 96.69 [degF] Genny Orosco SILK EXAMINER Work Phone: [facility] 05-14-2024 09:48-0400 Body weight 86.18 kg Genny Orosco SILK EXAMINER Work Phone: [facility] 05-14-2024 09:48-0400 Diastolic blood pressure 54 mm[Hg] Genny Orosco SILK EXAMINER Work Phone: [facility] 05-14-2024 09:48-0400 Heart rate 72 /min Genny Orosco SILK EXAMINER Work Phone: [facility] 05-14-2024 09:48-0400 Systolic blood pressure 104 mm[Hg] Genny Orosco SILK EXAMINER Work Phone: [facility] 06-07-2022 12:48-0400 Diastolic blood pressure 83 mm[Hg] No Pcp Required [facility] 06-07-2022 12:48-0400 Heart rate 67 /min No Pcp Required [facility] 06-07-2022 12:48-0400 Respiratory rate 16 /min No Pcp Required [facility] 06-07-2022 12:48-0400 SaO2% (BldA) [Mass fraction] 96 % No Pcp Required [facility] 06-07-2022 12:48-0400 Systolic blood pressure 148 mm[Hg] No Pcp Required [facility] 01-06-2022 10:51-0400 Blood Pressure Location NATALIA NIGEL [facility] 01-06-2022 10:51-0400 Diastolic blood pressure 86 mm[Hg] NATALIAYOVANY MANNING [facility] 01-06-2022 10:51-0400 Heart rate 86 /min NATALIA MANNING [facility] 01-06-2022 10:51-0400 Respiratory rate 16 /min NATALIA MANNING [facility] 01-06-2022 10:51-0400 Systolic blood pressure 132 mm[Hg] NATALIA MANNING [facility] 09-08-2021 14:15-0500 Body height 149.86 cm No PCP None [facility] Work Phone: 09-08-2021 14:15-0500 Body mass index (BMI) [Ratio] 36.96 kg/m2 No PCP None K[facility]Nqtoabclc[facility]bp[facility]Vp [facility] Work Phone: 09-08-2021 14:15-0500 Body surface area Derived from formula 1.78 m2 No PCP None VY[facility]nqlffirzhto[facility]Th [facility] Work Phone: 09-08-2021 14:15-0500 Body weight 83.01 kg No PCP None [facility] Work Phone: 09-08-2021 14:15-0500 Diastolic blood pressure 68 mm[Hg] No PCP None [facility]izykeanldd[facility]Om [facility] Work Phone: 09-08-2021 14:15-0500 Heart rate 96 /min No PCP None [facility] Work Phone: 09-08-2021 14:15-0500 Respiratory rate 16 /min No PCP None [facility] Work Phone: 09-08-2021 14:15-0500 Systolic blood pressure 115 mm[Hg] No PCP None [facility] Work Phone: 09-08-2021 14:15-0500 0 1 No PCP None [facility] Work Phone: Comment on above: [employer] 01-01-2021 16:46-0400 Heart rate 111 /min No Pcp Required [facility] 01-01-2021 16:46-0400 SaO2% (BldA) [Mass fraction] 95 % No Pcp Required [facility] 01-01-2021 14:00-0400 Body temperature 96.8 [degF] No Pcp Required [facility] 01-01-2021 14:00-0400 Diastolic blood pressure 77 mm[Hg] No Pcp Required [facility] 01-01-2021 14:00-0400 Respiratory rate 18 /min No Pcp Required [facility] 01-01-2021 14:00-0400 Systolic blood pressure 114 mm[Hg] No Pcp Required [facility] Encounters Encounter Date Encounter Type Care Provider Facility Start: 05-15-2025 ambulatory Deirdre L Amari Facility: [facility] Start: 12-25-2024 End: 12-25-2024 ambulatory Deirdre L Amari Facility:[facility] Start: 12-25-2024 End: 12-25-2024 Lab Drop off Deirdre L Amari [facility] Start: 12-14-2024 ambulatory PARAMEDICAL AIDE Deirdre L Amari Facil ity: [facility] Start: 12-12-2024 End: 12-12-2024 ambulatory PARAMEDICAL AIDE Deirdre L Amari Facility:[facility] Start: 12-12-2024 End: 12-12-2024 Lab Drop off Deirdre L Amari [facility] Start: 12-12-2024 End: 12-12-2024 ambulatory PARAMEDICAL AIDE Deirdre L Amari Facility: [facility] Start: 12-05-2024 End: 12-05-2024 ambulatory PARAMEDICAL AIDE Deirdre L Amari Facility: [facility] Start: 11-28-2024 End: 11-28-2024 ambulatory PARAMEDICAL AIDE Deirdre L Amari Facility: [facility] Start: 11-23-2024 ambulatory Armando Wilder acility:[facility] Start: 11-01-2024 ambulatory PARAMEDICAL AIDE Deirdre Amari Facilit y: [facility] Start: 10-31-2024 End: 10-31-2024 ambulatory PARAMEDICAL AIDE Deirdre L Amari Facility: [facility] Start: 10-30-2024 End: 10-30-2024 Office outpatient visit 10 minutes [facility] Comment on above: S/P spinal fusion Start: 10-30-2024 End: 10-30-2024 ambulatory [facility] Start: 10-16-2024 End: 10-16-2024 ambulatory Richardson Craig Facility: [facility] Start: 10-08-2024 End: 10-23-2024 Pre-admission assessment LEX K OTONIEL [facility] Start: 09-30-2024 End: 10-01-2024 ambulatory SHAIKH BIN [facility] Start: 09-30-2024 End: 10-01-2024 Emergency department patient visit Greyson Robertson DO Work Phone: [facility] Comment on above: Generalized weakness (Primary Dx); Chronic bilateral low back pain, unspecified whether sciatica present; Chronic thoracic back pain, unspecified back pain laterality; Encounter for screening involving social determinants of health (SDoH) Start: 09-01-2024 End: 09-01-2024 ambulatory Shaikh Bin Facility:[facility] Start: 09-01-2024 Encounter for other preprocedural examination Shaikh Bin [facility] Start: 09-01-2024 End: 09-04-2024 Clinisync [...] Start: 05-14-2024 End: 05-14-2024 Bamboo flowsheet Genny Munozzpatrick SILK EXAMINER Work Phone: [facility] Start: 05-14-2024 End: 05-22-2024 Clinisync Result Encounter Genny Orosco SILK EXAMINER Work Phone: [facility] Unsolicited Start: 05-14-2024 End: 05-22-2024 Clinisync Result Encounter Genny Orosco SILK EXAMINER Work Phone: [facility] Unsolicited Start: 05-14-2024 End: 05-14-2024 ambulatory GENNYWAGNER MEDRANOOROSCO Not Available Start: 05-14-2024 End: 05-14-2024 Office outpatient visit 15 minutes Genny Orosco SILK EXAMINER Work Phone: [facility] Comment on above: Intrinsic sphincter deficiency (ISD) (Primary Dx); Psychophysiological insomnia; Encounter for medication management; Dependence on wheelchair; Pressure injury of skin of buttock, unspecified injury stage, unspecified laterality Start: 05-02-2024 End: 05-03-2024 Telephone encounter Jessie MESA Work Phone: [facility] Start: 04-24-2024 End: 04-24-2024 Refill Genny Orosco SILK EXAMINER Work Phone: [facility] Comment on above: Chronic low back hina n, unspecified back pain laterality, unspecified whether sciatica present Start: 03-27-2024 End: 03-31-2024 Pre-admission assessment LEX FREDERICK [facility] Start: 03-26-2024 End: 10-27-2024 Pre-admission assessment LEX FREDERICK [facility] Start: 02-13-2024 End: 02-13-2024 ambulatory MENDOSA FAWWAD Not Available Start: 11-01-2023 End: 11-01-2023 ambulatory SHAIKH BIN Not Available Start: 10-10-2023 Orders Only Shaikh Bin HARKINS Work Phone: [facility] Comment on above: Chronic low back hina n, unspecified back pain laterality, unspecified whether sciatica present (Primary Dx); Nausea in adult Start: 06-02-[address] Lex Frederick Facility:[id number] Start: 01-15-2023 End: 01-15-2023 ambulatory LALI BENITEZ Facility:H1 Start: 01-13-2023 End: 01-13-2023 ambulatory IVON LAWS . Facility:H1 Start: 12-22-2022 End: 12-22-2022 ambulatory SHAIKH Shirley IBN Facility:H1 Start: 12-08-2022 AUDIT No PCP None [facility]uro[facility] [address] [place] Work Phone: Start: 12-08-2022 Chart Update No PCP None [facility]uro[facility] [address] [place] Work Phone: Start: 11-26-2022 End: 11-26-2022 Patient encounter procedure Guillermina Bingham [facility] Start: 11-22-2022 ambulatory SHAIKH Shirley OBRIEN Facilit y:H1 Start: 11-09-2022 End: 11-09-[address] DEVANTE Rojas Facility:H1 Start: 10-15-2022 End: 10-15-2022 ambulatory KYRA SILVA . Facility:H1 Start: 09-24-2022 End: 09-24-2022 Patient encounter procedure Guillermina Bingham [facility] Start: 09-01-2022 Encounter for preprocedural laboratory examination GUILLERMINA BINGHAM . [facility] Start: 08-25-2022 End: 08-25-2022 ambulatory MENDOSA H FAWWAD Facility:H1 Start: 08-24-2022 End: 08-25-2022 ambulatory MENDOSA H FAWWAD Facility:H1 Start: 08-24-2022 End: 08-25-2022 Encounter for preprocedural laboratory examination MENDOSA Shirley QUACHWAD Facility:H1 Start: 08-21-2022 ambulatory MENDOSA Shirley FABillyWAD Facilit y:H1 Start: 07-16-2022 End: 07-16-2022 Patient encounter procedure Guillermina Bingham [facility] Start: 06-06-2022 End: 06-07-2022 Emergency department patient visit Yony Aguirre [facility] Adult ED Blue 45 Start: 05-31-2022 End: 05-31-[address] MICHAEL SORIA . Facility:H1 Start: 05-19-2022 End: 05-19-2022 Off-Site Guillermina Bingham [facility] Start: 05-07-2022 End: 05-07-2022 ambulatory SHAIKH Shirley OBRIEN Facility:H1 Start: 04-08-2022 End: 04-08-[address] BAHINAV WEBB Facility:H1 Start: 03-30-2022 End: 03-31-[address] CLIF HUTTON Facility:H1 Start: 03-07-2022 End: 03-07-[address] ABHINAV WEBB Facility:H1 Start: 03-06-2022 End: 03-06-2022 ambulatory SHAIKH Shirley OBRIEN Facility:H1 Start: 02-21-2022 End: 02-21-2022 ambulatory IVON LAWS . Facility:H1 Start: 02-10-2022 ambulatory GUILLERMINA BINGHAM . Facility: H1 Start: 02-04-2022 End: 02-04-2022 Off-Site Guillermina Bingham [facility] Start: 01-11-2022 Chart Update No PCP None [facility] [place] Work Phone: Start: 01-11-2022 End: 01-11-2022 Patient encounter procedure Guillermina AponteCrystal Bingham [facility] Start: 01-07-2022 AUDIT No PCP None [facility] [place] [address] Work Phone: Start: 01-06-2022 End: 01-06-2022 Patient encounter procedure NATALIA Jacque MANNING [facility] Start: 10-13-2021 AUDIT No PCP None MG-Neurosu rgery-Miguel Work Phone: Start: 09-29-2021 AUDIT No PCP None MG-Gastroe nterology-B [place] [facility] Work Phone: Start: 09-15-2021 End: 10-02-2021 Evaluation and management of inpatient Dr. LEX FREDERICK Facility:[facility] Start: 09-09-2021 AUDIT No PCP None [facility]-Neurosu rgery-Miguel Work Phone: Start: 09-08-2021 Office outpatient vi sit 40 minutes No PCP None SJ-Rlapqfwgeqjk-Lurmh Work Phone: Start: 05-05-2021 Postop follow up vis it related to original px No PCP None EG-Moegqryuwyuw-MPZGK Work Phone: Start: 12-26-2020 End: 01-01-2021 Evaluation and management of inpatient Lex Frederick [facility] [id number] [id number] Preoperative state No PCP None MG-Neuros urgery-[facility] Work Phone: Procedures Date Procedure Procedure Detail [...] direct optical obs pr date Genny Orosco SILK EXAMINER Work Phone: Start: 05-14-2024 COMPLIANCE DRUG ANAL YSIS, UR Genny Munozzpatrick SILK EXAMINER Work Phone: Start: 09-21-[address] EFRAIN FREDERICK Comment on above: Performed By: #### A FPA3 #### [facility] [address] [place] [address] Start: 09-21-[address] EFRAIN FREDERICK Comment on above: Order Comment: VENECIA ESPINO, 09/21/2021 05:08TEST TYPE + SCREEN WAS CANCELLED, 09/21/2021 05:06 NO PHLEB ID ON TUBE. Result Comment: CALL ED RN AFSANEH ESPINO, 09/21/2021 05:08 Performed By: #### A FPA3 #### [facility] [address] [place] [address] Start: 09-17-[address] EFRAIN FREDERICK Comment on above: Performed By: #### T +S #### [facility] [address] [place] [address] Start: 12-27-2020 End: 12-28-2020 Release Blood Product-Packed Red Blood Cells Devante Defta Start: 12-26-2020 Renal function 2000 panel - Serum or Plasma Nabil Lv Appendectomy NATALIA MANNING Cholecystectomy NATALIA PER TRISH Hernia NATALIA MANNING Hysterectomy NATALIAYOVANY MANNING mylogr NATALIAYOVANY MANNING Plan of Treatment Date Care Activity Detail Author Start: 02-21-2030 DTaP,Tdap and Td Vaccines (2 - Td or Tdap) DTaP,Tdap and Td Vaccines (2 - Td or Tdap) [facility] Start: 02-21-2030 DTaP/Tdap/Td Vaccine s (2 - Td or Tdap) DTaP/Tdap/Td Vaccines (2 - Td or Tdap) [facility] Start: 10-30-2024 End: 10-30-2025 X-ray scoliosis 2 View (NON EOS) X-ray scoliosis 2 View (NON EOS) Imaging Routine S/P spinal fusion Expected: 10/30/2024, Expires: 10/30/2025 [facility] Service Area Work Phone: Comment on above: Expected: 10/30/2024 , Expires: 10/30/2025 Start: 06-13-2024 End: 06-13-2024 Patient encounter procedure 06/13/2024 9:20 AM EDT Office Visit [facility] [address] [place] [id number] Lian Greer, CATAPULT AND ARRESTING GEAR OFFICER-[facility] [address] [place] [address] [facility] Start: 05-14-2024 End: 05-14-2024 Patient encounter procedure 05/14/2024 9:30 AM EDT Office Visit [facility] [address] [place] [phone] Genny Orosco NP [address] [place] [address] [facility] Start: 05-06-2024 COVID-19 Vaccine ( season) COVID-19 Vaccine ( season) [facility] Start: 05-06-2024 Influenza vaccination N [facility] Start: 10-17-2023 End: 10-17-2023 Patient encounter procedure 10/17/2023 6:30 PM EST Office Visit [facility] [address] [place] [phone] Shaikh Obrien MD [address] [place] [phone] [facility] Start: 2023 Administration of varicella zoster vaccine Zoster (Shingles) Vaccine (1 of 2) [facility] Start: 2023 Pneumococcal vaccination Pneum ococcal Vaccine (1 of 1 - PCV) [facility] Start: 2023 Zoster Vaccines (1 of 2) Zoste r Vaccines (1 of 2) [facility] Start: 05-06-2023 Influenza vaccination Influenza Vacc ine (#1) [facility] Start: 11-03-2021 POV, Provider: Lex Frederick, Status: Pen, Time: 2:00 PM POV, Provider: Lex Frederick, Status: Pen, Time: 2:00 PM UN-Ezocyvrhhzymwcyk-D [facility] Work Phone: Start: 10-07-2021 Admission to [facility] RNVISIT, Provider: NURSE VISIT ASHLEY 5TH,MGNEUROSURGERY, Status: Pen, Time: 10:15 AM EM-Grnxaciuxipjzwxf-X olwell 6 [facility] Work Phone: Start: 09-18-2021 [facility] Provider: Lex Frederick, Status: Pen, Time: 8:00 AM [facility] Provider: Lex Frederick, Status: Pen, Time: 8:00 AM WJ-Wwkwukjdxoza-Ibmzz Work Phone: Start: 01-08-2021 Patient encounter procedure Neurosurgery Miguel Start: 12-31-2020 End: 01-01-2022 [facility] Comment on above: please place at beds geraldine for drain removal Start: 12-26-2020 End: 12-27-2021 Naloxone Injectable 0.4 mg IntraVenous Push Once ; (NARCAN)DOSE = 0.2 mg IntraVenous Push Once, PRN patient is unarousable, and respiratory rate lessClinician Notes: HOLD MERCHANDISE EXAMINER Infusion and notify H.O. immediately Start: 26-Dec-2020 End: 26-Dec-2021 Ordered: 26-Dec-2020 Nabil Awan Intent Comments: HOLD MERCHANDISE EXAMINER Infusion and notify H.O. immediately [facility] Comment on above: HOLD MERCHANDISE EXAMINER Infusion an d notify H.O. immediately Start: 2013 Screening for malign ant neoplasm of breast Mamm[facility] Start: 2003 Screening for malign ant neoplasm of cervix [facility] Start: 1994 Screening for malign ant neoplasm of cervix [facility] Start: 1992 Hepatitis B Vaccines (1 of - + 3-dose series) Hepatitis B Vaccines (1 of 3 - + 3-dose series) [facility] Start: 1991 Adult BMI Screening Adult BMI Screen [facility] Start: 1991 Hepatitis C screening Hepatitis C [facility] Start: 1985 Depression Screening Depression Scre ening [facility] Start: 1985 Tobacco Screening Tobacco Screening [facility] Start: 1974 MMR Vaccines (1 of 1 - Standard series) MMR Vaccines (1 of 1 - Standard series) [facility] Start: 1973 HIV screening HIV Screening [facility] Start: 1973 Lipid panel Lipid Panel [facility] Start: 1973 Screening for malign ant neoplasm of colon [facility] Start: 1973 Yearly Adult Physical Yearly Adult P hysical [facility] Bacteria identified in Urine by Culture [...] vaccine, adsorbed Guillermina Bingham [facility] 12-05-2018 hepatitis A vaccine, adult dosage Guillermina Lue [facility] Payers Date Payer Category Payer Self-pay 2021 [facility] BCBS [id number] 2021 [employer] ANTHEM P [id number] 2012 [employer] [facility] [employer] - O ANTHEM Member Subscriber Plan / Payer (Effective 2012-Present) Name: Morales Lee Relation to Subscriber: Spouse Name: LARS LEE Date of : 1970 Address: [address] [place] [address] Payer ID: [id number] (NAIC) Type: Not on file Address: [address] [id number] 2012 Unknown 1973 Unknown [id number] 2.16.840.1.005017.3.579. 2.356 1973 Unknown [id number] 2.16.840.1.165883.3.579. 2.356 1973 Unknown [id number] 2.16.840.1.226082.3.579. 2.593 1973 Unknown [id number] 2.16.840.1.038371.3.579. 2.593 1973 Unknown [id number] 2.16.840.1.007343.3.579. 2.593 1973 Unknown [id number] 2.16.840.1.973178.3.579. 2.593 1973 Unknown [id number] 2.16.840.1.061269.3.579. 2.593 1973 Unknown [id number] 2.16.840.1.085872.3.579. 2.593 1973 Unknown [id number] 2.16.840.1.715920.3.579. 2.593 1973 Unknown [id number] 2.16.840.1.720340.3.579. 2.593 1973 Unknown [id number] 2.16.840.1.435098.3.579. 2.593 1973 Unknown [id number] 2.16.840.1.458143.3.579. 2.593 1973 Unknown [id number] 2.16.840.1.339800.3.579. 2.593 1973 Unknown [id number] 2.16.840.1.136394.3.579. 2.593 1973 Unknown [id number] 2.16.840.1.176842.3.579. 2.593 1973 Unknown [id number] 2.16.840.1.709153.3.579. 2.593 1973 Unknown [id number] 2.16.840.1.649211.3.579. 2.593 1973 Unknown [id number] 2.16.840.1.711644.3.579. 2.593 1973 Unknown [id number] 2.16.840.1.068535.3.579. 2.593 1973 Unknown [id number] 2.16.840.1.278610.3.579. 2.1046 1973 Unknown [id number] 2.16.840.1.791386.3.579. 2.1259 1973 Unknown [id number] 2.16.840.1.777043.3.579. 2.1259 1973 Unknown [id number] 2.16.840.1.326455.3.579. 2.1259 1973 Unknown [id number] 2.16.840.1.731221.3.579. 2.1286 1973 Unknown [id number] 2.16.840.1.127210.3.579. 2.1242 1973 Unknown [id number] 2.16.840.1.539239.3.579. 2.727 1973 Unknown [id number] 2.16.840.1.555491.3.579. 2.727 1973 Unknown [id number] 2.16.840.1.973971.3.579. 2.727 1973 Unknown [id number] 2.16.840.1.535151.3.579. 2.727 1973 Unknown [id number] 2.16.840.1.136730.3.579. 2.727 1973 Unknown [id number] 2.16.840.1.663669.3.579. 2.727 1973 Unknown [id number] 2.16.840.1.254058.3.579. 2.727 1973 Unknown [id number] 2.16.840.1.129756.3.579. 2.727 1973 Unknown [id number] 2.16.840.1.283312.3.579. 2.727 1973 Unknown [id number] 2.16.840.1.267909.3.579. 2.727 1959 Unknown [id number] Unknown [id number] 2.16.840.1.288410.3.579. 2.531 Unknown [id number] 2.16.840.1.052742.3.579. 2.531 Social History Date Type Detail Facility [facility] consumption [facility] Work Phone: Start: 10-16-2020 End: 08-01-2023 History of drug use History of drug use BP-Bmluyngfsjpx-QFXU C Work Phone: Start: 01-05-2016 End: 10-01-2024 Tobacco smoking status Smokes tobacco daily (finding) [facility] Comment on above: 1ppd 1ppd Start: 10-16-2020 End: 08-08-2023 Sex Assigned At Female [facility] History of tobacco use Cigarette Smoker [facility] Start: 08-08-2023 End: 10-01-2024 Alcohol intake Lifetime non-drinker (finding) [facility] Start: 1975 Sex Assigned At Not on file N [facility] History of tobacco use Passive smoker [facility] Start: 10-01-2024 Tobacco use and exposure Smokeless tobacco [facility] Start: 12-17-2009 End: 04-10-2015 Sex Female (finding) [facility] Start: 10-20-2024 End: 10-30-2024 Exposure to SARS-CoV-2 (event) Not sure [facility] Start: 10-31-2024 Tobacco smoking status Heavy t obacco smoker (finding) [facility] Comment on above: 1ppd Sexual Orientation [facility] Medical Equipment Procedure Code Equipment Code Equipment Original Text Equipment Identifier Dates 2 EA, SubLingual , Daily, Refill(s) 0 Start: 01-05-2016 2 EA, SubLingual , Daily, Refill(s) 0 Start: 01-05-2016 2 EA, SubLingual , Daily, Refill(s) 0 Start: 01-05-2016 Bone Graft, Osteocel Plus, Cellular,Matrix, 10 Case [id number] Start: 12-26-2020 Comment on above: Description: Convert ed from [facility]. Please see archived information for full log information. Bone Graft, Osteocel Plus, Cellular,Matrix, 10 Case [id number] Start: 12-26-2020 Comment on above: Description: Convert ed from [facility]. Please see archived information for full log information. Bone Graft, Osteocel Plus, Cellular,Matrix, [facility] Case [id number] Start: 12-26-2020 Comment on above: Description: Convert ed from [facility]. Please see archived information for full log information. Bone Matrix, Osteocel Pro Cellular, Large Case [id number] Start: 09-18-2021 Comment on above: Description: Convert ed from [facility]. Please see archived information for full log information. Bone Graft, Osteocel Plus, Cellular,Matrix, [facility] Case [id number] Start: 09-18-2021 Comment on above: Description: Convert ed from [facility]. Please see archived information for full log information. Bone Matrix, Osteocel Pro Cellular, Medium Case [id number] Start: 09-21-2021 Comment on above: Description: Convert ed from [facility]. Please see archived information for full log information. Screw, Reline-O, 6.5x50mm 2s Polyaxial Case [id number] Start: 12-26-2020 Comment on above: Description: Convert ed from [facility]. Please see archived information for full log information. Screw, Reline-O, 4.5x45mm 2s Polyaxial Case [id number] Start: 12-26-2020 Comment on above: Description: Convert ed from [facility]. Please see archived information for full log information. 5.5x500 Jrod Alfonzo e [id number] Start: 12-26-2020 Comment on above: Description: Convert ed from [facility]. Please see archived information for full log information. Additional Information:5.5x500 JRODper bill only jdr 12/29/2020 1357pm Screw, Reline-O, 5.5x40mm 2s Polyaxial Case [id number] Start: 12-26-2020 Comment on above: Description: Convert ed from [facility]. Please see archived information for full log information. Screw, Reline-O, 6.5x45mm 2s Polyaxial Case [id number] Start: 12-26-2020 Comment on above: Description: Convert ed from [facility]. Please see archived information for full log information. Sandra Attrax, 10cc Case [id number] Start: 12-26-2020 Comment on above: Description: Convert ed from [facility]. Please see archived information for full log information. Screw, Reline-O, 5.0x45mm 2s Polyaxial Case [id number] Start: 12-26-2020 Comment on above: Description: Convert ed from [facility]. Please see archived information for full log information. Screw, Reline-O, 5.5x35mm 2s Polyaxial Case [id number] Start: 12-26-2020 Comment on above: Description: Convert ed from [facility]. Please see archived information for full log information. Screw, Reline-O, 5.5x45mm 2s Polyaxial Case [id number] Start: 12-26-2020 Comment on above: Description: Convert ed from [facility]. Please see archived information for full log information. Reline-O Sabiha, 5-6/5-6mm Rotating O-O Case [id number] Start: 12-26-2020 Comment on above: Description: Convert ed from [facility]. Please see archived information for full log information. Reline-O Sabiha, 5-6/5-6mm O-H Rotating Case [id number] Start: 12-26-2020 Comment on above: Description: Convert ed from [facility]. Please see archived information for full log information. Aspen, Reline-O, 6.5x40mm 2s Polyaxial Case [id number] Start: 12-26-2020 Comment on above: Description: Convert ed from [facility]. Please see archived information for full log information. Screw, Reline-O, 7.5x45mm 2s Polyaxial Case [id number] Start: 09-18-2021 Comment on above: Description: Convert ed from [facility]. Please see archived information for full log information. Screw, Reline-O, 8.5x90mm 2s Poly Iliac Case [id number] Start: 09-18-2021 Comment on above: Description: Convert ed from [facility]. Please see archived information for full log information. Screw, Reline-O, 7.5x40mm 2s Polyaxial Case [id number] Start: 09-18-2021 Comment on above: Description: Convert ed from [facility]. Please see archived information for full log information. Bobby Reline-O 5.5mm Case [id number] Start: 09-18-2021 Comment on above: Description: Convert ed from [facility]. Please see archived information for full log information. Additional Information:per bill only, verified by opnsalena Reline-O Sabiha, 5-6/5-6mm Rotating O-O Case [id number] Start: 09-18-2021 Comment on above: Description: Convert ed from [facility]. Please see archived information for full log information. Bobby, Reline-0, 5.5 X 90mm, Lordotic Case [id number] Start: 09-18-2021 Comment on above: Description: Convert ed from [facility]. Please see archived information for full log information. Bobby, Reline-O Cocr, 5.8o659qs Straight Case [id number] Start: 09-18-2021 Comment on above: Description: Convert ed from [facility]. Please see archived information for full log information. Bobby, Reline-0, 5.5 X 40mm, Lordotic Case [id number] Start: 09-21-2021 Comment on above: Description: Convert ed from [facility]. Please see archived information for full log information. Reline Lock Screw, Closed Terra Case [id number] Start: 09-21-2021 Comment on above: Description: Convert ed from [facility]. Please see archived information for full log information. PatriciaO Sabiha, 5-6/5-6mm O-H Med Case [id number] Start: 09-21-2021 Comment on above: Description: Convert ed from [facility]. Please see archived information for full log information. Jaron Louise Lock, 5.5mm Open Terra Case [id number] Start: 12-26-2020 Comment on above: Description: Convert ed from [facility]. Please see archived information for full log information. Jaron Louise Lock, 5.5mm Open Kayceeip Case [id number] Start: 09-18-2021 Comment on above: Description: Convert ed from [facility]. Please see archived information for full log information. Jaron Louise Lock, 5.5mm Open Kayceeip Case [id number] Start: 09-21-2021 Comment on above: Description: Convert ed from [facility]. Please see archived information for full log information. Functional Status Date Assessment Result Facility 11-26-2022 Functional Status N/A [facility] 07-16-2022 Functional Status N/A [facility] Functional observable [facility] Mental Status Date Assessment Result Facility 12-29-2020 Cognitive functi ons [id number] [facility] Clinical Notes 12-26-2020 to 12-12-2024 Rodger Frederick MD - 10/30/2024 11:40 AM Gerson Martinez MD - 10/01/2024 5:06 PM Gerson Martinez MD - 10/01/2024 11:30 AM Gerson Martinez MD - 10/01/2024 11:30 AM EST Note Date & Type Note Facility 12-12-2024 Evaluation + Plan note Future Scheduled TestsEcho Transthoracic Complete 12/12/24 [facility] 10-30-2024 History of Present illness Narrative [...] MRI C/T/L spine with Anesthesia done at [facility] in [place] but was unable to have done due to bronchitis. CT T/L spine done 10/01/24 at [facility] images were uploaded on PACS and available [...] the further treatment plan. Lex Frederick MD, [facility] Stencil Cutter of Neurological Surgery [facility] [employer] Attending Surgeon Director - Minimally Invasive Spine Surgery [place], [place] ---Some of this note was completed using [employer] voice recognition technology and sometimes the software misinterprets words. This may include unintended errors with respect to translation of words, typographical errors or grammar errors which may not have been identified prior to finalization of the chart note. Please take this into account when reading this note--- documented in this encounter [facility] Work Phone: 10-01-2024 Hospital course Narrative Discharge Summary Patient ID: Morales Lee Acct: [id number] Patient's PCP: NO PCP, NO PCP Admit Date: 09/30/2024 Discharge Date: Admitting Physician: Елена Loyd MD Discharge Physician: Dudley Martinez MD Discharge Diagnoses: Primary Problem Generalized weakness Principal Problem: Generalized weakness Active Problems: Ambulatory dysfunction Back pain, chronic Incomplete emptying of bladder Moderate episode of recurrent major depressive disorder ([facility]) Past Medical History: Diagnosis Date Hypertension Injury [...] Your Medications These medications were sent to [id number] - [place] - [address] [place] [address] fluconazole 100 mg tablet potassium chloride 20 MEQ CR tablet sulfamethoxazole-trimethoprim 800-160 mg per tablet Time Spent on discharge is 35 minutes in the examination, evaluation, counseling and review of medications and discharge plan. Copy sent to Dr. GOODSON PCP, NO PCP documented in this encounter [facility] 10-01-2024 History and physical note [facility] Medicine History and Physical Name: Morales Lee Acct: [id number] Room: 12/07 Admit Date: 09/30/2024 PCP: HAMZAH HOPKINS, NO PCP Chief Complaint: Chief Complaint Patient [...] Moderate episode of recurrent major depressive disorder ([facility]) Plan: Patient is on Suboxone gabapentin DVT [...] meaning can be extrapolated by contextual diversion. [facility] 10-01-2024 History and physical note [facility] Medicine History and Physical Name: Morales Lee Acct: [id number] Room: 4 Admit Date: 09/30/2024 PCP: HAMZAH PCP, HAMZAH PCP Chief Complaint: Chief Complaint Patient presents [...] Moderate episode of recurrent major depressive disorder ([facility]) Plan: Patient is on Suboxone gabapentin DVT [...] by contextual diversion. documented in this encounter [facility] 10-01-2024 Emergency department Triage note PT ARRIVES FROM HOME VIA EMS FOR CHRONIC BACK PAIN AND DEPRESSION [facility] 10-01-2024 Emergency department Note PT ARRIVES FROM HOME VIA EMS FOR CHRONIC BACK PAIN AND DEPRESSION documented in this encounter [facility] 06-08-2024 Miscellaneous Notes ----- Message from [employer] sent at 06/08/2024 3:14 PM EDT ----- Contract: [facility] Lidoderm Patch from [facility], not sure if can use Contract: [facility] Patient is not a current patient of this office informed that we cannnot give advice without this. Will call her insurance company. No triage done Reason for Disposition Caller has cancelled the call before the first contact Protocols used: No Contact or Duplicate Contact Call-A-AH documented in this encounter [facility] 06-08-2024 Telephone encounter Note ----- Message from [employer] sent at 06/08/2024 3:14 PM EDT ----- Contract: [facility] Lidoderm Patch from [facility], not sure if can use [facility] 06-08-2024 Telephone encounter Note Contract: [facility] Patient is not a current patient of this office informed that we cannnot give advice without this. Will call her insurance company. No triage done [facility] 06-08-2024 Telephone encounter Note Reason for Disposition Caller has cancelled the call before the first contact Protocols used: No Contact or Duplicate Contact Call-A-AH [facility] 05-15-2024 History of Present illness Narrative [...] physician appointments and anticipated to need it fci and lifelong Images from the original note [...] States her daughter in law is an ENGINEER and helps care for her. When I discussed with patient her chronic neurological issues including spinal cord compression, stenosis and myelopathies, pt states she is no longer seeing neuro because after what the [place] did to me, I am not seeing [...] physician appointments and anticipated to need it fci and lifelong Psychophysiological insomnia Encounter for medication [...] Letter sent 05/03/2024. documented [facility]24 Telephone encounter Note She has no showed or canceled the same day 4 times now for a new patient appointment. I do not feel she should be rescheduled with us. [email or web address] 05-02-2024 Telephone encounter Note Patient has been discharged from practice. Letter sent 05/03/2024. [facility] 04-24-2024 Telephone encounter Note Patient would like a refill of her Valium. Was from [facility] but did not transfer to [facility]. [facility] 04-24-2024 Miscellaneous Notes Patient would like a refill of her Valium. Was from [employer] but did not transfer to [facility]. documented in this encounter [facility] 11-26-2022 [...] 10/01/2017 Document Revised: 12/14/2019 Document Reviewed: 10/01/2017 [employer] Patient Education 2020 [employer] Follow Up Care 10/14/2022 11:11:52 With:Zachery HARKINS, CAROLEE Anderson, URO Address: When: Unknown [facility] 09-23-2022 Hospital Discharge instructions Patient Education 09/23/2022 [...] including vitamins, herbs, eye drops, creams, and ojsi-haj-meqgigk medicines. Any problems you or family members [...] provider tells you to take them. Taking vxmm-gpz-mquywez medicines, vitamins, herbs, and supplements. General instructions [...] 08/08/2013 Document Revised: 10/08/2019 Document Reviewed: 10/08/2019 [employer] Patient Education 2019 [employer]. Follow Up Care 08/31/2022 10:49:10 With:Zachery HARKINS, CAROLEE Anderson, URO Address: When: Unknown [facility] 07-16-2022 Hospital Discharge instructions Patient Education 07/16/2022 [...] (electrical nerve stimulation). For women, using a registered medical assistant to prevent urine leaks. This is a [...] right after experiencing incontinence. General instructions Take hlao-zjt-zzfluma and prescription medicines only as told by [...] 09/29/2005 Document Revised: 09/01/2018 Document Reviewed: 12/01/2017 [employer] Patient Education 2020 [employer]. Follow Up Care 06/15/2022 11:30:52 With:Zachery HARKINS, CAROLEE Anderson, URO Address: When: Unknown [facility] 02-04-2022 Hospital Discharge instructions Patient Education 02/04/2022 [...] (electrical nerve stimulation). For women, using a registered medical assistant to prevent urine leaks. This is a [...] right after experiencing incontinence. General instructions Take hkoe-xgd-qgoqplk and prescription medicines only as told by [...] 09/29/2005 Document Revised: 09/01/2018 Document Reviewed: 12/01/2017 [employer] Patient Education 2020 [employer]. 02/04/2022 16:23:10 Calorie Counting for Weight Loss [...] 08/22/2006 Document Revised: 05/11/2019 Document Reviewed: 07/22/2017 [employer] Patient Education 2020 [employer]. Follow Up Care 02/04/2022 13:28:46 With:Guillermina Bingham MD, SARAYL, URO Address: When: Unknown [facility] 01-11-2022 Evaluation + Plan note Extrac [...] and Plan Diagnosis Bowel and bladder incontinence (DMM39-LT R32, Billing Diagnosis, Medical). Incontinence without sensory awareness (XPE87-LD N39.42, Working, Medical). Diagnosis Bowel and bladder incontinence (JBP20-KD R32, Billing Diagnosis, Medical). Incontinence without sensory awareness (IAA31-NO N39.42, Working, Medical). Addendum by Guillermina Bingham MD on January 11, 2022 10:23 EDT Post procedure diagnosis: Intrinsic sphincter deficiency, acontractile detrusor [facility]05-09-2022 Hospital Discharge instructions Patient Education 01/11/2022 [...] Up Care 01/06/2022 11:41:34 With:Guillermina Bingham Address: [facility] [address] [address]- [phone] Business (1) When: Unknown Comments:Call for followup appointment in 2-3 weeks With:Guillermina Bingham Address:Unknown When: Unknown [facility]05-04-2022 Hospital Discharge instructions Patient Education 01/06/2022 [...] clinics. Check with your local health department. [facility], where you would pay only what you can afford. To find one near you, check this website: [email or web address] [facility]. These are part of a [...] information Learn more about cervical cancer from: [employer]: www.acog.org/Patients/FAQs/Cervical-Cancer [employer]: www.cancer.org/cancer/cervicalcancer/ U.S. Centers for Disease [...] 09/05/2016 Document Revised: 09/23/2018 Document Reviewed: 04/19/2017 [employer] Patient Education 2020 [employer]. Follow Up Care 11/20/2021 10:16:51 With:NATALIA MANNING PA-C, URL Address: [facility] [address] When:01/13/2022 [facility] 01-28-2022 NoteSend Summary: Discharge Summary [...] Care - New Vital Signs: T PRBPSpO2 Value36.1893221/6394% Date/Time10/02 8: 8: 8: 8: 8:00 Range(36.1C [...] placement 09/23 Patient transitioned from post op MERCHANDISE EXAMINER to oral pain regimen 09/24 Fitted for [...] to forklift picker objects (more content not included)...[facility]01-26-2022 NoteThis report has been cancelled.[facility]01-17-2022 NotePROCEDURE DETAILS Postoperative Diagnosis: lumbar stenosis Surgeon: Dr. Lex Frederick Resident/Fellow/Other Inkjet Operator: Chery Awan Procedure: posterior L4-L5 decompression [...] Last Updated: 22-Sep-2021 10:54 by Lex Frederick)[facility]01-17-2022 NoteHistory & Physical Reviewed: /Lactating: Are You [...] the note. I personally evaluated the patient [id number] Electronic Signatures: Lex Frederick) (Signed 21-Sep-2021 11:50) Authored: Note Completion Co-Signer: History & Physical Reviewed, ERAS, Consent, Note Completion Jaya Mosquera (Resident)) (Signed 21-Sep-2021 02:51) Authored: History & Physical Reviewed, ERAS, Consent, Note Completion Last Updated: 21-Sep-2021 11:50 by Lex Frederick () References: 1. Data Referenced From MRI Safety Screen v2 19-Sep-2021 19:00[facility]01-15-2022 NoteRehab: Info: Mode of Treatmentoccupational therapy; attempted; OT evaluation initiated with home set-up obtained (1st floor set up/ 0 step entry, lives with , tub shower with chair); Pt with low BP upon arrival 79/54. Second BP reading taken at 71/51. RN notified, further evaluation deferred at this time. OT to reattempt when pt medically appropriate. 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 Exploration of spinal fusion 2. Reduction of L4/5 dislocation 2. L5-pelvis instrumented fusion with L4-pelvis posterolateral arthrodesis 4. Extension of prior T6-L4 instrumentation with multiple bobby construct and side connectors Anesthesia: MoraBryan Estimated Blood Loss: 700 Findings: good reduction [...] performed and the images transferred to the Eferio system for use in intraoperative image-guided computer-assisted [...] the torque dri (more content not included)...[facility]01-14-2022 NoteThis report has been cancelled.[facility]01-14-2022 NoteHistory & Physical Reviewed: /Lactating: Are You [...] the note. I personally evaluated the patient [id number] Electronic Signatures: Fidel Maciel (Resident)) (Signed 17-Sep-2021 22:49) Authored: History & Physical Reviewed, ERAS, Consent, Note Completion Lex Frederick) (Signed 19-Sep-2021 10:17) Authored: Note Completion Co-Signer: History & Physical Reviewed, ERAS, Consent, Note Completion Last Updated: 19-Sep-2021 10:17 by Lex Frederick) References: 1. Data Referenced From MRI Safety Screen v2 17-Sep-2021 11:28[facility]01-11-2022 NoteReferral Information: Consult requested by (Attending Name): [...] able to m (more content not included)...[facility]01-11-2022 NoteHistory of Present Illness: /Lactating: Are You [...] physical exam or was physically present for scohfield and critical portions performed by the resident/fellow. I reviewed the resident/fellows documentation and discussed the patient with the resident/fellow. I agree with the resident/fellows medical decision making as documented in the note. I personally evaluated the patient [id number] Electronic Signatures: Fidel Maciel (Resident)) (Signed 15-Sep-2021 [...] Last Updated: 16-Sep-2021 10:20 by Lex Frederick)[facility]04-23-2021 History of Present illness Narrative* I just had the pleasure of seeing Mrs. Lee back in the Neurosurgery Spine Clinic at the [facility]. She is a very pleasant 46-year-old female, [...] Ms. JESUS hollis. * Lex Frederick MD, [facility], [facility] * Director - Minimally Invasive Spine Surgery * [facility] * Stencil Cutter of Neurological Surgery * [facility] [employer] * [place], [place] * Some of this note was completed using [employer] voice recognition technology and sometimes the software misinterprets words. This may include unintended errors with respect to translation of words, typographical errors or grammar errors which may not have been identified prior to finalization of the chart note. Please take this into account when reading this note. [facility] Work Phone: [phone]) [phone] Reason for referral (narrative)* Reason for Referral: Patient s/p posterior bilateral L1 transpedicular decompression, posterior T7-T8, T8-T9, T9-T10, T0-T11, T11-T12, T12-L1 hutton hernandez osteotomies, Posterior T5-L4 instrumentation and fusion on 12/26 [facility] Future Appointments Appointment Date:01/07/2022 11:00:00 AM Scheduled Provider: Location:[facility] Appointment Type:Urology CALL PAT FT Appointment Date:01/11/2022 08:00:00 AM Scheduled Provider: Location:[facility] Appointment Type:Urology FT Appointment Date:01/11/2022 09:00:00 AM Scheduled Provider: Location:[facility] Appointment Type:Urology FT [facility] + [facility] + Plan note Future Appointments Appointment Date:04/06/2024 12:00:00 PM Scheduled Provider: Location:.MRI Appointment Type:MRI Spine (FT) Appointment Date:04/06/2024 12:00:00 PM Scheduled Provider: Location:[facility] Appointment Type:Surgery FT Future Scheduled Tests Radiology* MRI Spine Cervical w/o Contrast 04/06/24 * MRI Spine Lumbar w/o Contrast 04/06/24 * MRI Spine Thoracic w/o Contrast 04/06/24 [facility] evaluation + Plan note Future Appointments Appointment Date:10/26/2024 12:00:00 PM Scheduled Provider: [facility] Appointment Type:MRI Spine (FT) Appointment Date:10/26/2024 12:00:00 PM Scheduled Provider: Location:[facility] Appointment Type:Surgery FT Future Scheduled Tests Radiology* MRI Spine Cervical w/o Contrast 10/26/24 * MRI Spine Lumbar w/o Contrast 10/26/24 * MRI Spine Thoracic w/o Contrast 10/26/24 [facility] evaluation + Plan note Future Appointments Appointment Date:10/31/2024 01:00:00 PM Scheduled Provider:Deirdre Hale Location:[facility] Appointment Type:FM New Patient - Adult [facility] evaluation + Plan note Future Appointments Appointment Date:12/14/2024 09:20:00 AM Scheduled Provider: Location:[facility] Appointment Type: Lab Draw Diagnostic Tests Pending * PAP [id number] w/ HPV and Genotype rflx 12/12/24 Future Scheduled Tests Laboratory* CBC w/ Auto Diff 12/12/24 * CBC w/ Auto Diff 12/12/24 * Comprehensive Metabolic Panel 12/12/24 Radiology* Echo Transthoracic Complete 12/12/24 [facility] evaluation note* Neurological: wfgndrx3tdw 5/5 except hg/io4+ble 5/5incision cdiHead/Neck: Ox3, awake, alertBUE 5 prox, HG/IO4+BLE HF/KE/DF/PF/EHL 5 [facility]* Constitutional: in no acute distressSkin: Well perfusedEyes: OU 3RHead/Neck: atraumatic, normocephal icRespiratory/Thorax: airway intact, good chest expansionCardiovascular: normal rate, regular rhythmGastrointestinal: non-tenderNeurological: NAD, A&Uj5Eqwczqi Nerves II-XII: PERRL, EOMI, Face symmetric, Facial SILT, Palate/Tongue midline and symmetric, shoulder shrugs symmetric, hearing intact to finger rubs bilaterallyMotor: RUE D5, B5, T5, HG5, IO5LUE D5, B5, T5, HG5, IO5RLE HF 4+, KE4+, PF4-, DF3LLE HF 4+, KE4+, PF3, DF4-Sensation: SILT throughout all extremitiesPsychological: mood appropriate [facility]* Diagnosis Chronic low back pain, unspecified back pain laterality, unspecified whether sciatica present- Primary Nausea in adult documented in this encounter [facility]* Diagnosis Intrinsic sphincter deficiency (ISD)- Primary Psychophysiological insomnia Persistent disorder of initiating or maintaining sleep Encounter for medication management Dependence on wheelchair Pressure injury of skin of buttock, unspecified injury stage, unspecified laterality documented in this encounter [facility] HealthcareEvaluation note* Diagnosis Chronic low back pain, unspecified back pain laterality, unspecified whether sciatica present documented in this encounter [facility] HealthcareEvaluation note* Diagnosis Generalized weakness- Primary Generalized weakness Chronic bilateral low back pain, unspecified whether sciatica present Chronic thoracic back pain, unspecified back pain laterality Encounter for screening involving social determinants of health (SDoH) Ambulatory dysfunction Back pain, chronic Incomplete emptying of bladder Incomplete bladder emptying Moderate episode of recurrent major depressive disorder ([facility]) [facility]* Diagnosis S/P spinal fusion Arthrodesis status documented in this encounter [facility] Work Phone: Hospital course Narrative No data available for this section [facility] Hospital Discharge instructions* Activity:activity as tolerated. May [...] Certification:Home Care Services Needed: yesSkilled Disciplines Ordered: RN/CUSTOMER LOYALTY REPRESENTATIVE, PT, OTFace to Face Encounter Completed: yesDate of Encounter: [id number] Necessity for Homecare (based on clinical findings): [...] washing dishes, & loading the dryer or field supervisor until cleared by MD. * Wound Care:Inspect [...] - Neurosurgeon:Physician/Dept/Service: NeurosurgeonDr Josephuled Date/Time: 08-Jan-2021 10:40Location: [facility] [address], [place]Phone Number: [phone]: 2 week postop/wound check visit; Bring Insurance Card and Photo ID [facility] Discharge instructions No data available for this section [facility] Hospital Discharge instructionsNot on filedocumented in this encounterProJohn [facility] Health SystemInstructionsNot on filedocumented in this encounterProReg[facility] SystemInstructionsNot on filedocumented in this encounterProRegency [facility] SystemProgress note No data available for this section [facility] reason for referral (narrative) , urinary incontinence, neurogenic bladder, open bladder neck, possible SP tube placement Referred by: Zachery HARKINS, Guillermina Rhodes [facility] Reason for referral (narrative)* Consultation (Routine) - Authorized Specialty Diagnoses / Procedures Referred By Controber t Referred To Contact Wound Care Diagnoses Pressure injury of skin of buttock, unspecified injury stage, unspecified laterality Procedures RI OFFICE/OUTPATIENT [facility] 60 MINUTES Genny Orosco NP [address] [place] [address] Pérez Pederson MD [facility] [address] [facility], [place] [address] Referral ID Status Reason Start Date Expiration Date Visits Requested Visits Authorized [id number] Authorized Specialty Services Required 05/15/2024 11/11/2024 1 [...] section and content) DATE CREATED AUTHOR 06/20/2019 [facility] DATE CREATED AUTHOR AUTHOR'S ORGANIZ ATION 06/20/2019 [facility] DATE CREATED AUTHOR AUTHOR'S ORGANIZ ATION 07/26/2019 [facility] DATE CREATED AUTHOR AUTHOR'S ORGANIZ ATION 12/29/2020 [facility] DATE CREATED AUTHOR AUTHOR'S ORGANIZ ATION 09/16/2021 [employer] DATE CREATED AUTHOR AUTHOR'S ORGANIZ ATION 12/10/2021 [facility] DATE CREATED AUTHOR AUTHOR'S ORGANIZ ATION 08/06/2022 [facility] DATE CREATED AUTHOR AUTHOR'S ORGANIZ ATION 01/17/2023 [facility] DATE CREATED AUTHOR AUTHOR'S ORGANIZ ATION 06/09/2023 [facility] DATE CREATED AUTHOR AUTHOR'S ORGANIZ ATION 05/15/2024 [facility] dical Specialists [facility] DATE CREATED AUTHOR AUTHOR'S ORGANIZ ATION 10/02/2024 [facility] DATE CREATED AUTHOR AUTHOR'S ORGANIZ ATION 11/03/2024 [facility] DATE CREATED AUTHOR AUTHOR'S ORGANIZ ATION 11/25/2024 [facility] DATE CREATED AUTHOR AUTHOR'S ORGANIZ ATION 12/26/2024 [facility] DATE CREATED AUTHOR AUTHOR'S ORGANIZ ATION 03/28/2025 [facility] DATE CREATED AUTHOR AUTHOR'S ORGANIZ ATION 05/02/2025 [facility] <item><item> Privacy Markings (unrecogniz ed [...] Care Team (unrecognized sect ion and content) Wire Hanger Relationship Specialty Start Date End Date Shaikh Obrien MD PCP - General Internal Medicine 08/05/23 Wire Hanger Relationship Specialty Start Date End Date Unallocated, Nilo Juarez MD [address] [place] [address] PCP - General Family Medicine 06/04/24 Genny Orosco NP [address] [place] [address] Nurse Practitioner Family Medicine 04/12/24 Wire Hanger Relationship Specialty Start Date End Date Kostas Ching MD [address] [place] [phone] PCP - General Family Medicine 04/12/24 Genny Orosco NP [address] [place] [address] Nurse Practitioner Family Medicine 04/12/24 Wire Hanger Relationship Specialty Start Date End Date Kostas Ching MD [address] [place] [phone] PCP - General Family Medicine 04/12/24 eGnny Orosco NP [address] [place] [address] Nurse Practitioner Family Medicine 04/12/24 Wire Hanger Relationship Specialty Start Date End Date Kostas Ching MD [address] [place] [phone] PCP - General Family Medicine 04/12/24 Genny Orosco NP [address] [place] [phone] Nurse Practitioner Family Medicine 04/12/24 Wire Hanger Relationship Specialty Start Date End Date Kostas Ching MD [address] [place] [phone] PCP - General Family Medicine 04/12/24 Genny Orosco NP [address] [place] [phone] Nurse Practitioner Family Medicine 04/12/24 Wire Hanger Relationship Specialty Start Date End Date Unallocated, Noms MD Larry [address] [facility] [place] [place] [phone] PCP - General Family Medicine 06/04/24 Genny Orosco NP [address] [place] [address] Nurse Practitioner Family Medicine 04/12/24 Wire Hanger Relationship Specialty Start Date End Date No Pcp, [place] [address] PCP - General Family Medicine 10/01/24 Wire Hanger Relationship Specialty Start Date End Date Shaikh Obrien MD PCP - General Internal Medicine 11/15/22 Wire Hanger Relationship Specialty Start Date End Date Shaikh Obrien MD PCP - General Internal Medicine 11/15/22 Reason for Visit (unrecogniz ed section and content) Reason Comments Hospital Follow-up Reason Onset Date Comments Med Refill 04/24/2024 Reason Comments Back Pain Specialty Diagnoses / Procedures Referred By Pablo saavedra Referred To Contact Diagnoses Chest pain Generalized weakness Елена Loyd MD [address] [facility] [place] [address] Phone: tel: fax: Referral ID Status Reason Start Date Expiration Date Visits Re quested Visits Authorized [id number] 1 1 Scheduled Active and Recently Administ ered Medications (unrecognized section and content) Medication Order 09/29/2024 09/30/2024 10/01/2024 buprenorphine-naloxone (SUBOXONE) 8-2 mg per disintegrating tablet 3 tablet 3 tablet, sublingual, Daily, First dose on Tue10/01/24 at 1100 1043 (Given - Provid er: Carissa Adkins, EVARISTO) enoxaparin (LOVENOX) syringe 40 mg 40 mg, [...] (Medication Carlene lied - Provider: Carissa Adkins, RN) orphenadrine (NORFLEX) injection 60 mg (COMPLETED) 60 [...] Look-alike/sound-alike medication - verify indication for use. 08 (Given - Provid er: Carissa Adkins [...] BE BASED ON THE PRIMARY CLINICAL RECORDS. [facility]. provides no warranty or guarantee of the accuracy or completeness of information in this document.
--- OUTSIDE RECORDS SUMMARY | 2025-05-05 00:48 | XMS_ITS | Encounter Summary ---
Author Organization [facility] Address [address] [place] [address] Care Team Providers Care Foot Worker Name Role Phone Kostas Ching MD Primary Care Provider [phone] Gianna Orosco NP Unavailable [phone] Unallocated, [facility] Provider Primary Care Provi marilu Shaikh SHAHANA Obrien Unavailable [phone] Encounter Details Date Type Department Care Team (Late st Contact Info) Description 05/08/2024 Orders Only [facility] [address] [place] [phone] Gianna Orosco NP Social History Tobacco Use [...] Modality Chest Radiographic Melinda ging Gianna Orosco [employer] ARTISTIC DIRECTOR IMG XR PROCEDURES Final Result documented in this encounter Visit Diagnoses Not on filedocumented in this encounter Care Teams Foot Worker Relationship Specialty Start Date End Date Kostas Ching MD [address] [place] [phone] PCP - General Family Medicine 04/12/24 06/03/24 Unallocated, Noms MD Larry [address] [place] [address] PCP - General Family Medicine 06/04/24 Shaikh Obrien MD [address] [place] [phone] PCP - [facility] 11/03/24 Gianna Orosco NP [address] [place] [phone] Nurse Practitioner Family Medicine 04/12/24 documented as of this encounter
--- OUTSIDE RECORDS SUMMARY | 2025-05-05 00:48 | XMS_ITS | Encounter Summary ---
Author Organization [facility] Address [address], [address] [place] [address] Care Team Providers Care Nursing Unit Coordinator Name Role Phone Shaikh SHAHANA Obrien Primary Care Provider [phone] Encounter Details Date Type Department Care Team (Late st Contact Info) Description 11/21/2023 Orders Only [facility] [address] [place] [phone] Provider, MD Haydee Social History Tobacco Use [...] Description 05/29/2025 11:30 AM EDT Office Visit [facility] [place] [phone] Fred Maurice MD [address] [place] [address], [address] [place] [address] 1m catheter change/provider visit/ dr only documented as of this encounter Procedures Procedure Name Priority Date/Time Associated Diagnosis Comments URINALYSIS Routine 11/21/2023 3:35 PM EDT COMPREHENSIVE METABOLIC PANEL Routine 11/21/2023 3:34 PM EDT CBC Routine 11/21/2023 3:33 PM EDT documented in this encounter Results * Urinalysis (11/21/2023 3:35 PM EDT) Urine [facility] Provider URINE ORDERABLES Final Re sult * Comprehensive Metabolic Panel (11/21/2023 3:34 PM EDT) Blood BLOOD SPECIMEN / Unknown [facility] Provider CHEMISTRY ORDERABLES Ceci l Result * CBC (11/21/2023 3:33 PM EDT) Blood BLOOD SPECIMEN / Unknown Result [facility] Provider HEMATOLOGY ORDERABLES Fin al Result documented in this encounter Visit Diagnoses Not on filedocumented in this encounter Care Teams Nursing Unit Coordinator Relationship Specialty Start Date End Date Shaikh Obrien MD PCP - General 09/07/23 documented as of this encounter
--- OUTSIDE RECORDS SUMMARY | 2025-05-05 00:48 | XMS_ITS | Encounter Summary ---
Author Organization [facility] Address [address], [address] [place] [address] Care Team Providers Care Diamond Driller Helper Name Role Phone Shaikh SHAHANA Obrien Primary Care Provider Encounter Details Date Type Department Care Team (Late st Contact Info) Description 12/28/2023 Orders Only [facility] [address] [place] [phone] Provider, MD Haydee Social History Tobacco Use [...] Description 05/29/2025 11:30 AM EDT Office Visit [facility] [place] [phone] Fred Maurice MD [address] [place] [address], [address] [place] [address] 1m catheter change/provider visit/ dr [...] on filedocumented in this encounter Care Teams Diamond Driller Helper Relationship Specialty Start Date End Date Shaikh Obrien MD PCP - General 09/07/23 documented as of this encounter
--- OUTSIDE RECORDS SUMMARY | 2025-05-05 00:48 | XMS_ITS | Encounter Summary ---
Author Organization [facility] Address [address] [place] [address] Care Team Providers Care Lead Shipper Name Role Phone Shaikh SHAHANA Obrien Primary Care Provider [phone] Kostas Ching MD Primary Care Provider [phone] Gianna Orosco JAILER Unavailable [phone] Unallocated, Noms Provider Primary Care Provi marilu Shaikh SHAHANA Obrien Unavailable [phone] Encounter Details Date Type Department Care Team (Late st Contact Info) Description 12/04/2023 Orders Only [facility] [address] [place] [phone] Shaikh Obrien MD [address] [place] [phone] Social History Tobacco Use Types Packs/Day Years [...] on filedocumented in this encounter Care Teams Lead Shipper Relationship Specialty Start Date End Date Shaikh Obrien MD [address] [place] [phone] PCP - General Internal Medicine 11/01/23 04/11/24 Kostas Ching MD [address] [place] [phone] PCP - General Family Medicine 04/12/24 06/03/24 Unallocated, Noms MD Larry [address] [facility] [place] [address] PCP - General Family Medicine 06/04/24 Shaikh Obrien MD [address] [place] [phone] PCP - [facility] 11/03/24 Gianna Orosco NP [address] [place] [phone] Nurse Practitioner Family Medicine 04/12/24 documented as of this encounter
[2025-05-05 01:35] VITALS: BP 151/91; PULSE 81; TEMP 36.4; O2SAT 97; BMI 35.7
--- NOTE | 2025-05-05 02:05 | ED.ABDPAIN1 ---
HPI - Abdominal Pain General Chief Complaint: Nausea/Vomiting/Diarrhea Stated Complaint: abd pain Time Seen by Provider: 05/05/25 01:54 Source: patient Mode of arrival: Wheelchair Limitations: no limitations History of Present Illness HPI narrative: presents complaining of gastritis . states she has had similar episodes in the past that improve with GI cocktail and protonix. Ill since yesterday with nausea. last BM this AM. vomiting tonight . no fever or chest pain Related Data Home Medications ?Medication ?Instructions ?Recorded ?Confirmed buprenorphine 8 mg-naloxone 2 mg 1 film sublingual Q8H 03/01/23 05/05/25 sublingual film gabapentin 800 mg tablet 800 mg PO TID 03/30/23 05/05/25 tizanidine 4 mg tablet 4 mg PO Q8H PRN muscle spasticity 03/30/23 05/05/25 potassium chloride 20 mEq 20 meq PO DAILY 10/05/24 05/05/25 tablet,extended release(part/cryst) diazepam 5 mg tablet 5 mg PO DAILY 04/30/25 05/05/25 duloxetine 30 mg capsule,delayed 30 mg PO BID 04/30/25 05/05/25 release Previous Rx's ?Medication ?Instructions ?Recorded sulfamethoxazole 800 1 tab PO BID 5 days #10 tabs 04/30/25 mg-trimethoprim 160 mg tablet (Bactrim DS) Allergies Allergy/AdvReac Type Severity Reaction Status Date / Time codeine Allergy Severe rash Verified 05/05/25 01:32 Penicillins Allergy Severe Anaphylaxis Verified 05/05/25 01:32 quetiapine (From Seroquel) Allergy Severe Seizure Verified 05/05/25 01:32 sulfamethoxazole (From Allergy Mild Nausea Verified 05/05/25 01:34 Bactrim) trimethoprim (From Bactrim) Allergy Mild Nausea Verified 05/05/25 01:34 Review of Systems ROS Status of ROS 10 or more systems reviewed and unremarkable except as noted in history and below [facility] Medical History 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 (ICD-10) Ulcer of left heel and midfoot, limited to breakdown of skin (~08/27/24) ?L97.421 - Non-pressure chronic ulcer of left heel and midfoot limited to breakdown of skin (ICD-10) Opioid use disorder in remission ?F11.91 - Opioid use, unspecified, in remission (ICD-10) Indwelling Aden catheter present ?Z97.8 - Presence of other specified devices (ICD-10) Accidental fall ?W19.XXXA - Unspecified fall, initial encounter (ICD-10) Pressure ulcer ?L89.90 - Pressure ulcer of unspecified site, unspecified stage (ICD-10) Cellulitis ?L03.90 - Cellulitis, unspecified (ICD-10) Urinary tract infection ?N39.0 - Urinary tract infection, site not specified (ICD-10) Urinary catheter (Aden) change required ?Z46.6 - Encounter for fitting and adjustment of urinary device (ICD-10) Constipation ?K59.00 - Constipation, unspecified (ICD-10) Aden catheter problem ?T83.9XXA - Unspecified complication of genitourinary prosthetic device, implant and graft, initial encounter (ICD-10) Drug-seeking behavior ?Z76.5 - Malingerer [conscious simulation] (ICD-10) UTI (urinary tract infection) ?N39.0 - Urinary tract infection, site not specified (ICD-10) Gastritis ?K29.70 - Gastritis, unspecified, without bleeding (ICD-10) Nausea & vomiting ?R11.2 - Nausea with vomiting, unspecified (ICD-10) Pressure sore ?L89.90 - Pressure ulcer of unspecified site, unspecified stage (ICD-10) Retention of urine, unspecified ?R33.9 - Retention of urine, unspecified (ICD-10) Decubital ulcer ?L89.90 - Pressure ulcer of unspecified site, unspecified stage (ICD-10) Swollen leg ?M79.89 - Other specified soft tissue disorders (ICD-10) Bronchitis ?J40 - Bronchitis, not specified as acute or chronic (ICD-10) Aden catheter problem ?T83.9XXA - Unspecified complication of genitourinary prosthetic device, implant and graft, initial encounter (ICD-10) Vomiting ?R11.10 - Vomiting, unspecified (ICD-10) UTI (urinary tract infection) ?N39.0 - Urinary tract infection, site not specified (ICD-10) Gastritis ?K29.70 - Gastritis, unspecified, without bleeding (ICD-10) Candidal intertrigo ?B37.2 - Candidiasis of skin and nail (ICD-10) Leukocytosis ?D72.829 - Elevated white blood cell count, unspecified (ICD-10) Chronic back pain ?M54.9 - Dorsalgia, unspecified (ICD-10) ?G89.29 - Other chronic pain (ICD-10) Fecal incontinence ?R15.9 - Full incontinence of feces (ICD-10) Urinary incontinence ?R32 - Unspecified urinary incontinence (ICD-10) Wheelchair dependence ?Z99.3 - Dependence on wheelchair (ICD-10) Cord compression myelopathy ?G95.20 - Unspecified cord compression (ICD-10) Surgical History History of back surgery ?Z98.890 - Other specified postprocedural states (ICD-10) Chronic suprapubic catheter ?Z93.59 - Other cystostomy status (ICD-10) Social History Within the past year, how often did you have a drink containing alcohol: never Score interpretation: A score less than 3 is consistent with normal alcohol consumption. Smoking status: Current every day smoker Non-prescribed substance use: former substance user Highest level of school completed/degree received: GED or equivalent Little interest or pleasure in doing things: not at all Feeling down, depressed, or hopeless: not at all Exam Constitutional Vital Signs, click to edit/add: Last Vital Signs Temp 97.5 F L 05/05/25 01:35 Pulse 81 05/05/25 01:35 Resp 20 05/05/25 01:35 BP 151/91 H 05/05/25 01:35 Pulse Ox 97 05/05/25 01:35 O2 Del Method Room Air 05/05/25 01:35 Common normals: no apparent distress, average body habitus, oriented x3, no limitations, healthy appearing, alert and well nourished [facility] Common normals: normocephalic and head/scalp atraumatic Eye Common normals: EOMs intact bilaterally and conjunctivae normal Respiratory Common normals: normal respiratory effort, no retractions, no use of accessory muscles and clear to auscultation bilaterally Cardio Common normals: regular rate, regular rhythm, S1 normal heart sound and S2 normal heart sound GI Common normals: Normal to inspection, nondistended, normoactive bowel sounds present and soft to palpation Other: non specific tenderness Extremity Common normals: full ROM Other: thick scaly skin of her legs Neuro Common normals: oriented x3, CN's II-XII intact bilaterally and moves all extremities Psych Appearance: grossly normal Course Vital Signs Vital signs: Vital Signs Temperature 97.5 F L 05/05/25 01:35 Pulse Rate 81 05/05/25 01:35 Respiratory Rate 20 05/05/25 01:35 Blood Pressure 151/91 H 05/05/25 01:35 Pulse Oximetry 97 05/05/25 01:35 Oxygen Delivery Method Room Air 05/05/25 01:35 Temperature 97.5 F L 05/05/25 01:35 Pulse Rate 81 05/05/25 01:35 Respiratory Rate 20 05/05/25 01:35 Blood Pressure 151/91 H 05/05/25 01:35 Pulse Oximetry 97 05/05/25 01:35 Oxygen Delivery Method Room Air 05/05/25 01:35 MDM - Abdominal Pain MDM Narrative Medical decision making narrative: patient presents complaining of gastritis and nausea. States similar episodes in the past. Requesting protonix , antiemetic and GI cocktail. Also complains of abdominal pain. labs reveal elevated WBC and albumin 2.8. CT abdomen without acute findings except mild stranding along margins of bladder possibly due to underlying cystitis. Patient is afebrile and has indwelling aden. Treated with Protonix and phenergan. Resting in no distress and is again requesting GI cocktail which she states helps her. Feeling well enought after GI to go home. Discharged with prescription for Protonix and prn phenergan Lab Data Labs: Lab Results 05/05/25 Range/Units 03:39 WBC 14.3 H (4.0-11.0) 10^3/uL RBC 5.14 (4.20-5.40) 10^6/uL Hgb 13.9 (12.0-16.0) g/dL Hct 43.8 (36.0-48.0) % MCV 85.2 (81.0-99.0) fL MCH 27.0 (26.7-34.0) pg MCHC 31.7 (29.9-35.2) g/dL RDW 14.8 (11.0-15.0) % Plt Count 399 (150-450) 10^3/uL MPV 9.8 (9.5-13.5) fL Neut % (Auto) 86.6 H (43.0-75.0) % Lymph % (Auto) 10.0 L (20.5-60.0) % [place] % (Auto) 1.7 (1.7-12.0) % Eos % (Auto) 0.1 L (0.9-7.0) % Baso % (Auto) 0.3 (0.2-2.0) % Neut # (Auto) 12.4 H (1.4-6.5) 10^3/uL Lymph # (Auto) 1.4 (1.2-3.8) 10^3/uL [place] # (Auto) 0.2 L (0.3-0.8) 10^3/uL Eos # (Auto) 0.0 (0.0-0.7) 10^3/uL Baso # (Auto) 0.1 (0.0-0.1) 10^3/uL Abs Immat Gran (auto) 0.19 H (0.00-0.03) 10^3/uL Imm/Tot Granulo (auto) 1.3 H (0.0-0.5) % Sodium 140 (136-145) mmol/L Potassium 5.0 (3.5-5.1) mmol/L Chloride 102 (98-107) mmol/L Carbon Dioxide 28.3 (21.0-32.0) mmol/L Anion Gap 14.7 BUN 5.0 L (7.0-18.0) mg/dL Creatinine 0.66 (0.55-1.02) mg/dL Est GFR ( Amer) >60 (>=60 mL/min/1.73m^2) Est GFR (Non-Af Amer) >60 (>=60 mL/min/1.73m^2) BUN/Creatinine Ratio 7.6 Glucose 138 H (74-106) mg/dL Lactate 1.1 (0.4-2.0) mmol/L Calcium 9.3 (8.5-10.1) mg/dL Total Bilirubin 0.3 (0.2-1.0) mg/dL AST 22 (15-37) U/L ALT 17 (14-59) U/L Alkaline Phosphatase 189 H (46-116) U/L Troponin I High Sens <4.0 L (4.0-51.3) pg/mL Total Protein 9.0 H (6.4-8.2) g/dL Albumin 2.8 L (3.4-5.0) g/dL Globulin 6.2 g/dL Albumin/Globulin Ratio 0.5 Lipase 17.0 (16.0-77.0) U/L Discharge Plan Discharge Chief Complaint: Nausea/Vomiting/Diarrhea Clinical Impression: Abdominal pain, Nausea & vomiting Patient Disposition: Home, Self-Care Prescriptions / Home Meds: No Action gabapentin 800 mg tablet 800 mg PO TID tizanidine 4 mg tablet 4 mg PO Q8H PRN (Reason: muscle spasticity) potassium chloride 20 mEq tablet,ER particles/crystals 20 meq PO DAILY Rx Instructions: 10/01/24 FOR 7 DAYS buprenorphine-naloxone 8-2 mg film 1 film sublingual Q8H diazepam 5 mg tablet 5 mg PO DAILY duloxetine 30 mg capsule,delayed release(DR/EC) 30 mg PO BID sulfamethoxazole-trimethoprim [Bactrim DS] 800-160 mg tablet 1 tab PO BID 5 Days Qty: 10 0RF Print Language: Cypriot Instructions: Acute Nausea and Vomiting (ED), Abdominal Pain (ED) Additional Instructions: follow up with your doctor early next week for recheck Referrals: MAL PEREZ [Primary Care Provider, HIGHER EDUCATION ADMINISTRATOR] - 1 week
[2025-05-05] MEDS: PANTOPRAZOLE SODIUM 40 MG VIAL IV (03:56)
[2025-05-05] MEDS: PROMETHAZINE HCL 25 MG in 0.9 % SODIUM CHLORIDE 50 ML 204 MG IV (03:56)
[2025-05-05] MEDS: 0.9 % SODIUM CHLORIDE 1,000 ML 999 ML IV (03:57)
[2025-05-05 04:02] LABS: Hematocrit 43.8 % (36.0-48.0); Hemoglobin 13.9 g/dL (12.0-16.0); Immature Granulocytes Abs Auto 0.19 10^3/uL (0.00-0.03); Immature Granulocytes Pct Auto 1.3 % (0.0-0.5); Lymphocytes Absolute Auto 1.4 10^3/uL (1.2-3.8); Mean Corpuscular HGB Conc 31.7 g/dL (29.9-35.2); Mean Corpuscular Hemoglobin 27.0 pg (26.7-34.0); Mean Corpuscular Volume 85.2 fL (81.0-99.0); Platelet Count 399 10^3/uL (150-450); Red Blood Count 5.14 10^6/uL (4.20-5.40); White Blood Count 14.3 10^3/uL (4.0-11.0)
[2025-05-05 04:19] LABS: Anion Gap 14.7
[2025-05-05 04:21] LABS: Alanine Aminotransferase 17 U/L (14-59); Albumin Globulin Ratio 0.5; Albumin Level 2.8 g/dL (3.4-5.0); Alkaline Phosphatase 189 U/L (46-116); Aspartate Amino Transferase 22 U/L (15-37); Blood Urea Nitrogen 5.0 mg/dL (7.0-18.0); Calcium 9.3 mg/dL (8.5-10.1); Carbon Dioxide 28.3 mmol/L (21.0-32.0); Chloride 102 mmol/L (98-107); Estimated GFR (African America >60 (>=60 mL/min/1.73m^2); Estimated GFR (Non-African Ame >60 (>=60 mL/min/1.73m^2); Globulin 6.2 g/dL; Glucose 138 mg/dL (74-106); Lactate/Lactic Acid 1.1 mmol/L (0.4-2.0); Lipase 17.0 U/L (16.0-77.0); Potassium 5.0 mmol/L (3.5-5.1); Sodium 140 mmol/L (136-145); Total Protein 9.0 g/dL (6.4-8.2)
[2025-05-05] MEDS: lidocaine HCL 15 ML, MAG HYDROX/ALUMINUM HYD/SIMETH 30 ML, HYOSCYAMINE SULFATE 0.25 MG PO (05:12)
[2025-05-05 06:00] VITALS: BP 157/89; PULSE 75; O2SAT 93
== END 2025-05-05 06:25 | disposition home or self-care (01) ==
PROVIDERS: Emergency Provider Internal Medicine; PCP Nurse Practitioner
DX: R10.9 Unspecified abdominal pain (principal); R11.2 Nausea with vomiting, unspecified; Z90.49 Acquired absence of other specified parts of digestive tract; Z90.710 Acquired absence of both cervix and uterus; F17.200 Nicotine dependence, unspecified, uncomplicated
CPT/HCPCS: 36415; 74176; 80053; 83605; 83690; 84484; 85025; 96365; 96375; 99284; J2550

== ENCOUNTER 2025-06-21 14:02 | Emergency (ER) | payer BC, SELFPAY ==
[2025-06-21 14:06] VITALS: BP 125/88; PULSE 93; TEMP 36.6; O2SAT 97
--- OUTSIDE RECORDS SUMMARY | 2025-06-21 14:11 | XMS_ITS | CCD ---
Author Organization [facility] Care Team Providers Care Paper Tube Cutter Name Role Phone Required, No Pcp Unavailable Unavailable Lex Frederick Unavailable None, No PCP Unavailable Unavailable Unavailable Unavailable SHAIKH OBRIEN Primary Care Physician [phone] Yony Aguirre Unavailable Unavailable Neurosurgery Unavailable Unavailable [...] Livingston Consulting UnavailDR CLIF Cotton Admitting Unavailable URIAH, DR CLIF Santana Consulting [...] MENDOSA H Primary Care Unavailable LUE . GUILLERMINA M Admitting Unavailable LUE .GUILLERMINA M Attending Unavailable FAWWAD, MENDOSA H Primary Care Unavailable LUE ., GUILLERMINA M Admitting Unavailable LUE ., GUILLERMINA M Consulting Unavailable LUE ., GUILLERMINA M Attending Unavailable JON, DR ABHINAV Livingston Attending Unavailabl e FAWGABRIELLED, [facility] Primary Care Unavailable REINMAXINE, DR ABHINAV Livingston Admitting Unavailabl e REINECK, DR ABHINAV Livingston Consulting Unavailabl e VETO ., IVON Admitting Unavailable VETO ., IVON Attending Unavailable [facility] Primary Care Unavailable PATRICK, DEBORAH Aponte Consulting Unavailable [facility] Primary Care Unavailable REINMAXINE, DR ABHINAV Livingston Admitting Unavailabl e REINECK, DR ABHINAV Livingston Consulting Unavailabl e REINECK, DR ABHINAV Livingston Attending Unavailabl e HAY ., DR LOW Admitting Unavailable [facility] Primary Care Unavailable HAY ., DR LOW Attending Unavailable ZIEBER, DR ENRIQUE Santana Consulting Unavailable HAY ., DR LOW Consulting Unavailable LUE ., GUILLERMINA Aponte Admitting Unavailable LUE ., GUILLERMINA Aponte Attending [facility]available [facility] Primary Care Unavailable [facility], [facility] Primary Care Unavailable LUE ., GUILLERMINA M Admitting Unavailable LUE ., GUILLERMINA M Consulting Unavailable LUE ., GUILLERMINA Aponte Attending Unavailable CANDICE MATTA Consulting Unava ilRACHEL Kirk Consulting Unavailable DIAB ., KYRA Admitting Unavailable [facility], [facility] Primary Care Unavailable DIAB ., KYRA Attending Unavailable GRECHNY .BONITA Consulting Unavailabl e [facility], [facility] Primary Care Unavailable LUE ., GUILLERMINA M Admitting Unavailable LUE ., GUILLERMINA M Consulting Unavailable LUE ., GUILLERMINA Aponte Attending Unavailable PAY ., DR RODRIGUEZ Admitting Unavailable PAY ., DR RODRIGUEZ Consulting Unavailable [facility] Primary Care Unavailable PAY ., DR RODRIGUEZ Attending Unavailable [facility] Primary Care Unavailable JON, DR ABHINAV Livingston Admitting Unavailabl e JON, DR ABHINAV Livingston Consulting Unavailabl e JON, DR ABHINAV Livingston Attending Unavailabl KORIN Mccarthy Consulting Unavailable Zach, Dr. Lex De Los Santos Attending Unava ilable Micah HARKINS, [facility] Primary Care Provider [phone] SHAIKH OBRIEN Attending Unavailable SHAIKH OBRIEN Attending Unavailable GENNY OROSCO Attending Unavailabl e Orosco PLY BANDER, Genny Unavailable Unallocated , Noms Provider Primary Care Provi marilu Humza HARKINS, Kostas Primary Care Provider No Pcp, No Pcp Primary Care Provider Unavailrenee e MICAH, Primary Care Unavailable GREYSON ROBERTSON Attending Unavailable ЕЛЕНА LOYD Admitting Unavailable ROMMEL FOLEY Consulting Unavailable Micah HARKINS, Primary Care Provider Unavailable Primary Care Provider UnavailLEX Mathews Attending Unavailable Micah, Attending Unavailable Shaikh Obrien Admitting Unavailable Shaikh Obrien Primary Care Unavailable Armando Spaulding Admitting Unavailab Armando Farris Attending Unavailab Shaikh Chang Primary Care Unavailable Amari, Deirdre Parker Primary Care Physician [phone] Amari, Deirdre L Attending Unavailable Amari, Deirdre L Admitting Unavailable Amari, [employer] Deirdre L Attending Unavailable Amari, [employer] Deirdre L Attending Unavailable Amari, [employer] Deirdre L Attending Unavailable Amari, [employer] Deirdre L Attending Unavailable Amari, [employer] Deirdre L Admitting Unavailable Amari, [employer] Deirdre L Attending Unavailable Richardson Craig Attending Unavailable Amari, [employer] Deirdre L Attending Unavailable Amari, [employer] Deirdre L Attending Unavailable Amari, Deirdre L Admitting Unavailable Amari, Deirdre L Attending Unavailable Amari, Deirdre L Attending Unavailable Amari, Dierdre L Attending Unavailable Amari, Deirdre L Attending Unavailable Allergies Allergy Classification Reported Allergen(s) Allergy Type Date of Onset Reaction(s) Facility Opioid Agonists (1 source) Codeine Drug Allergy Unknown [facility] Penicillins (antibiotic) (1 source) Penicillin Drug Allergy Unknown [facility] QUEtiapine (1 source) QUEtiapine Drug Allergy Unknown [facility] (20 sources) Codeine; Translations: [Codeine] Drug Allergy 1 Hives, Facial Swelling, Swelling, Other, Unknown [facility] Work Phone: (20 sources) Penicillins; Translations: [Penicillins] Allergy to drug (finding) 1 Swelling, Hives, Unknown [facility] Work Phone: (20 sources) Promethazine; Translations: [promethazine] Drug Allergy 1 Swelling, Unknown [facility] (1 source) QUEtiapine Drug Allergy Seizures [facility] (2 sources) Codeine Drug Allergy 3 [facility] Rep[facility] (7 sources) gabapentin; Translations: [Neurontin] Drug Allergy [facility] (1 source) Levamisole Drug Allergy [facility] (1 source) Morphine Drug Allergy 0 [facility] (2 sources) Penicillins Drug allergy (disorder) 3 [facility] (1 source) QUEtiapine Drug Allergy 3 [facility] (14 sources) Penicillins; Translations: [penicillins] Drug Allergy 3 Hives, GI intolerance [facility] (14 sources) QUEtiapine; Translations: [QUETIAPINE] Drug Allergy 3 Unknown, Seizure [facility] (4 sources) Penicillin; Translations: [PENICILLIN] Drug Allergy [address] [facility] (4 sources) Phenergan Plain; Translations: [PHENERGAN PLAIN] Propensity to adverse reactions to drug 6 Swelling, Facial Swelling [facility] (1 source) Codeine Drug Allergy 0 [facility] Repository (1 source) Penicillins Drug allergy (disorder) 0 [facility] Repository (1 source) QUEtiapine Drug Allergy 2 [facility] Repository Medications Current Medications Medication Drug Class(es) Dates Sig (Normalized) Sig (Original) Ankle Foot Orthosis (1 source) Start: 09-23-2021 Ankle Foot Orthosis ; for foot drop Quantity: 2 Refills: 0 Ordered: 23-Sep-2021 Azghadi, [place] Start: 23-Sep-2021 Status: Discontinued Generic Substitution Allowed [...] q12hr, # 2 cap(s), Refills(s) 0, [id number], cm, 07/16/22 10:58:00 EST, Height/Length Dosing, [...] day(s), # 2 tab(s), Refills(s) 0, Pharmacy: [place] [id number] [facility], 156, cm, 01/06/22 10:53:00 EDT, Height/Length [...] Start: 04-17-2015 take 1 capsule by mo ut three times daily gabapentin (Neurontin) 300 mg [...] Ordered Start: 04-17-2015 take 1 capsule by [facility] once daily hydroCHLOROthiazide (Microzide) 12.5 mg capsule [...] Daily, # 30 tab(s), Refills(s) 3, Pharmacy: [address], 156, cm, 02/04/22 15:47:00 EDT, Height/Length Dosing, 78, kg, 02/04/22 15:47:00 EDT, Weight Dosing Start Date: 02/25/22 Status: Ordered nystatin 100 unt/mg topical powder (10 sources) Polyene Antifungal Start: 03-07-2023 Nyamyc 133112 UNIT/GM powder Apply 1 application topically in [...] Start: 05-18-2011 take 1 capsule by mo uth once daily omeprazole (PriLOSEC) [address] [...] 30 tab(s), Refills(s) 11, [facility]: [facility] #[id number], 156, cm, 07/16/22 10:58:00 EST, Height/Length Dosing, 78, kg, 07/16/22 10:58:00 EST, Weight Dosing Start Date: 07/16/22 Status: Ordered Start: 03-10-2022 take 1 tablet by marlen once daily oxybutynin 10 mg ER Tab 10 mg = 1 tab(s), Oral, Daily, # 30 tab(s), Refills(s) 3, [facility] [facility], 156, cm, 02/04/22 15:47:00 EDT, Height/Length [...] 07-Jan-2021 Generic Substitution Allowed polyethylene glycol 3350 63391 mg powder for oral solution (6 sources) [...] mouth daily. 04/17/2015 Active polyethylene glycol 3350 974423 mg / potassium chloride 2970 mg / sodium bicarbonate 6740 mg / sodium chloride 5860 mg / sodium sulfate 52926 mg powder for oral solution (9 sources) [...] Daily, # 30 cap(s), Refills(s) 0, Pharmacy: [address], 156, cm, 01/07/22 13:43:00 EDT, Height/Length [...] indication for use. Shake well., Indications: dyspepsia betamethasone 1 mg/ml topical [...] / sennosides, fdc 8.6 mg oral tablet (3 sources) Start: 10-01-2024 End: 10-01-2024 take 1 tablet by mouth every twelve hours as needed for constipation 1 tablet, oral, Every 12 hours PRN, constipation, Starting on Tue10/01/24 at 0412 Start: 01-01-2021 take 2 tablets by mo [facility] twice daily for pain sennosides-docusate 8.6 [...] food., # 2 cap(s), Refills(s) 0, Pharmacy: [facility] #[id number], 156, cm, 11/26/22 8:15:00 EDT, Height/Length Dosing, [...] 06-13-2023 Chronic Other aftercare (2 sources) Other snf (current) drug therapy; Translations: [Other manager long term care (current) drug therapy] Onset: 2 Episodic Other [...] Test Name Value Interpretation Reference Range Facility Ambulatory Visit Summaryon 0 06-04-2025 Ambulatory Visit Summary Ambulatory Visi t Summary JESUSMORALES :1975 Visit Date:06/04/2025 Ambulatory Visit Instructions Your Diagnosis BMI 35.0-35.9,adult Smoker Your Care Team Attending Physician - Deirdre Hale Primary Care Physician - Deirdre Hale This Is Your Medications List [facility] Prescription (Overnight Alvares Catheter Bag) acyclovir topical (acyclovir Top 5% Crm) buprenorphine-naloxone (Suboxone 8 mg-2 mg sublingual film) clindamycin (clindamycin 300 mg oral cap) diazepam (diazepam 5 mg Tab) duloxetine (Cymbalta 30 mg oral delayed release capsule) ergocalciferol (Vitamin D 50,000 intl units (1.25 mg) oral capsule) furosemide (Lasix 20 mg Tab) gabapentin (gabapentin 800 mg Tab) nystatin topical (Nyamyc 100,000 units/g topical powder) oxybutynin (oxybutynin 10 mg ER Tab) silver sulfADIAZINE topical (Silvadene 1% Cream) tizanidine (tiZANidine 4 mg Tab) Procedures Performed Appendectomy, Cholecystectomy, Hernia, Hysterectomy, mylogr. Discharge Vitals Temperature (Temporal Artery) 36.2 ???C Heart Rate (Peripheral) 82 Respiratory Rate 20 Blood Pressure 118/78 Height 154.0 cm Height 61 in Weight 83.6 kg Weight 184.306 lb BMI 35.25 Medications What How Much When Why Instructions New clindamycin (clindamycin 300 mg oral cap) 1 Capsules By Mouth Every 8 hours BMI 35.0-35.9,adult Smoker Duration: 14 Days Pickup at [facility] #[facility] New silver sulfADIAZINE topical (Silvadene 1% Cream) 1 Application Topical Every day BMI 35.0-35.9,adult Smoker Pickup at [facility] #72 Unchanged acyclovir topical (acyclovir Top 5% Crm) [...] Chronic back pain BMI 35.0-35.9,adult Smoker Unchanged ergocalciferol (Vitamin D 50,000 intl units (1.25 mg) oral capsule) 1 Capsules By Mouth 2 times a week Well woman exam Breast cancer screening Cervical cancer screening Vaginal yeast infection Cellulitis of leg Lower extremity edema Localized swelling of both lower legs Indwelling Alvares catheter present depression SAI (generalized anxiety disorder) SOB (shortness of breath) BMI 35.0-35.9,adult Smoker Unchanged furosemide (Lasix 20 mg Tab) 1 Tablets By Mouth Every day Well woman exam Breast cancer screening Cervical cancer screening Vaginal yeast infection Cellulitis of leg Localized swelling of both lower legs SOB (shortness of breath) Unchanged gabapentin (gabapentin 800 mg Tab) 1 Tablets By Mouth 3 times a day Unchanged Misc Prescription (Overnight Alvares Catheter Bag) See instructions Indwelling Alvares catheter present needs larger alvares bag Unchanged nystatin topical (Nyamyc 100,000 units/ g topical powder) 1 Application Topical 3 times a day apply to affected area three times a day Unchanged oxybutynin (oxybutynin 10 mg ER Tab) 1 Tablets By Mouth Every day Unchanged tizanidine (tiZANidine 4 mg Tab) See instructions TAKE 1 TABLET BY MOUTH EVERY 8 HOURS Pharmacy Information [facility]: [address] [place], [place] [id number] [phone] Allergies Phenergan codeine penicillins Problems Ongoing - Any problem that you are currently receiving treatment for. Breast cancer screening Cellulitis of leg Cervical cancer screening Chronic back pain depression Elevated alkaline phosphatase level Elevated total protein Fibromyalgia SAI (generalized anxiety disorder) Genital herpes History of UTI Incomplete bladder emptying Incontinence without sensory awareness Indwelling Alvares catheter present Intrinsic sphincter deficiency (ISD) Localized swelling of both lower legs Lower extremity edema Pressure ulcers of skin of multiple topographic sites Smoker SOB (shortness of breath) Urinary incontinence [...] you for choosing us for your care. Patient Portal You may access all of your results and other medical record information on our secure patient portal. If you are not signed up for this yet, please contact [employer] at [phone] to get signed up today. Language Information Language assistance services are available as needed. [facility] Family Medicine Office/Clini c Noteon 06-04-2025 Family Medicine Office/Clinic Note Family Medicine Office/Clinic Note HPI Staff Pt is here for ER f/u for wound care on the back of her legs ER followup: Hospital: [facility] Visit date: Symptoms the patient presented with: Current concerns: Wound clinic referral ... they said you had an appt March 29 she doesn't remember making the appt. Was advised not to put lidocaine patches on wound she is using Vaseline on her wounds History of Present Illness pt presents today for ER follow up for wounds on buttocks Review of Systems PHQ Score Initial Depression Screen Score: 0 SCORE Physical Exam Vitals & Measurements T: 36.2 ???C(Temporal Artery) HR: 82(Peripheral) RR: 20 BP: 118/78 SpO2: 97% HT: 154.0 cm HT: 61 in WT: 83.6 kg WT: 184.306 lb BMI: 35.25 General: alert, no acute distress ENMT: oral mucosa moist, no pharyngeal erythema or exudate Cardiovascular: regular rate and rhythm, normal peripheral perfusion Respiratory: Lungs CTA, respirations non labored Extremities: no deformity, no trauma Neurological: oriented x 4, LOC appropriate for age, CN II-XII intact, motor strength equal & normal bilaterally, speech normal skin: stage 1 sacral ulcer, stage 2 ulcers of CHATO upper thighs right below buttocks are red excoriated with serosanguineous fluid, the size of a softball in circumference Assessment/Plan 1. Pressure ulcers of skin of multiple topographic sites (L89.90: Pressure ulcer of unspecified site, unspecified stage) pt presents today for follow up from ER visit for wounds.. will place another referral to wound clinic. she did not go to her appointment in March. and now these ulcers are much larger and much worse. will send in Silvadene cream to use until she is able to get into wound clinic for further evaluation and treatment. encouraged pt to keep area clean and to change positions very frequently when in bed or sitting in chair. will also send in clindamycin for 14 days. RTC 1 months Ordered: [facility] Internal Ambulatory Referral 2. SAI (generalized anxiety disorder) (F41.1: Generalized anxiety disorder) stable on current medication. needs refills 3. BMI 35.0-35.9,adult (Z68.35: Body mass index [BMI] 35.0-35.9, adult) BMI educatoin Ordered: clindamycin, 300 mg = 1 cap(s), Oral, q8hr, X 14 day(s), # 42 cap(s), Refills(s) 0, Pharmacy: [facility], 154, cm, 06/04/25 11:30:00 EDT, Height/Length Dosing, 83.6, kg, 06/04/25 11:30:00 EDT, Weight Dosing silver sulfADIAZINE topical, 1 carlene, Topical, Daily, 400 gram, Refill(s) 0, [facility], 154, cm, 06/04/25 11:30:00 EDT, Height/Length Dosing, 83.6, kg, 06/04/25 11:30:00 EDT, Weight Dosing [facility] Internal Ambulatory Referral 4. Smoker (F17.200: Nicotine dependence, unspecified, uncomplicated) consider not smoking Ordered: clindamycin, 300 mg = 1 cap(s), Oral, q8hr, X 14 day(s), # 42 cap(s), Refills(s) 0, Pharmacy: [facility], 154, cm, 06/04/25 11:30:00 EDT, Height/Length Dosing, 83.6, kg, 06/04/25 11:30:00 EDT, Weight Dosing silver sulfADIAZINE topical, 1 carlene, Topical, Daily, 400 gram, Refill(s) 0, [facility], 154, cm, 06/04/25 11:30:00 EDT, Height/Length Dosing, 83.6, kg, 06/04/25 11:30:00 EDT, Weight Dosing [facility] Internal Ambulatory Referral Orders: diazepam, See Instructions, TAKE 1 TABLET BY MOUTH THREE TIMES DAILY, # 90 tab(s), Refills(s) 0, Pharmacy: [facility], 154, cm, 06/04/25 11:30:00 EDT, Height/Length Dosing, 83.6, kg, 06/04/25 11:30:00 EDT, Weight Dosing dicyclomine, 20 mg = 1 tab(s), Oral, BID, PRN Spasm, 30 to 60 minutes before meals for stomach cramping, # 10 tab(s), Refills(s) 0, Pharmacy: [facility], 154, cm, 12/12/24 10:51:00 EDT, Height/Length Dosing, 83.5, kg, 12/12/24 10:51:00 EDT, Weight... fluconazole, 150 mg = 1 tab(s), Oral, Once, take 1 tab on day one and 1 tab on day four, # 2 tab(s), Refills(s) 1, Pharmacy: [facility], 154, cm, 12/12/24 10:51:00 EDT, Height/Length Dosing, 83.5, kg, 12/12/24 10:51:00 EDT, Weight Dosing nicotine, See Instructions, 28 EA, Refill(s) 0, place 1 patch on the skin DAILY, [facility], 154, cm, 12/12/24 10:51:00 EDT, Height/Length Dosing, 83.5, kg, 12/12/24 10:51:00 EDT, Weight Dosing tizanidine, See Instructions, TAKE 1 TABLET BY MOUTH EVERY 8 HOURS, # 90 tab(s), Refills(s) 0, Pharmacy: [facility] #72, 154, cm, 06/04/25 11:30:00 EDT, Height/Length Dosing, 83.6, kg, 06/04/25 11:30:00 EDT, Weight Dosing tizanidine, See Instructions, TAKE 1 TABLET BY MOUTH EVERY 8 HOURS, # 30 tab(s), Refills(s) 0, Pharmacy: [facility], 154, cm, 12/12/24 10:51:00 EDT, Height/Length Dosing, 83.5, kg, 12/12/24 10:51:00 EDT, Weight Dosing Follow-up With When Contact Information Deirdre Hale, [facility], MED In [address] [place] [phone]- Additional Instructions: Problem List/Past Medical History Ongoing Breast cancer screening Cellulitis of leg Cervical cancer screening (more content not included)... [facility] Comment on above: Result Comment: Elec tronically Signed By: Deirdre Hale\.br\Date and Time Signed: 06/04/25 12:33 EDT Provider Letteron 03-27-2025 Provider Letter Provider Letter March 27, 2025 MORALES [address] [place] [address] : 1975 Dear Morales, We have been trying to reach you with no success. It is important that you return our call regarding your message you left upon receiving this letter. Also, at the time of your call, please provide us with your current information. Thank you for your prompt attention to this matter. Sincerely, [facility] [address] [place] [address] [facility] Reminderson 12-31-2024 Reminders Reminders From: Deirdre Hale To: B [...] 26.6 % (14.0 - 50.0) 12/25/2024 10:00 [place] Auto (L) 3.2 % (4.0 - 14.0) 12/25/2024 10:00 Eos Auto 4.3 % (0.0 - 8.0) 12/25/2024 10:00 Basophil Auto 0.7 % (0.0 - 2.0) 12/25/2024 10:00 Neutro Absolute (H) 8.1 E9/L (2.0 - 7.5) 12/25/2024 10:00 Lymph Absolute 3.3 E9/L (1.0 - 4.0) 12/25/2024 10:00 [place] Absolute 0.4 E9/L (0.2 - 1.0) 12/25/2024 [...] like Liver US order to go to [facility]. Pt also wanted to update you that the cellulitis has improved, however she has hard blisters behind her heels and it is starting to go up her leg. She wanted to know if you had any recommendations. [facility] Patient Letter FTon 2024 Patient Letter [facility] Patient Letter [facility] December 27, 2024 MORALES LEE [address] [place] [address] : 1975 Our office has been trying to reach you, we have been unable to leave you a message due to voicemail not being set up. Please contact our office when you get this letter. Family Medicine [address] [place] [address] [facility] CBC w/ Auto DiffOrdered By: SYSTEM SYSTEM on 12-25-2024 Basophils/100 WBC (Bld) 0.7 % Normal 0.0-2.0 R emisol Heme Comment on above: Performed By: #### 2 [id number] #### [facility] [address] [place] [address] Basophils/Leukocytes Auto (Bld) [Pure # fraction] 0.1 E9/L Normal 0.0-0.2 Remisol Heme Comment on above: Performed By: #### 2 [id number] #### [facility] [address] [place] [address] Eosinophils (Bld) [#/Vol] 0.5 E9/L Normal 0.0-0.5 Remisol Heme Comment on above: Performed By: #### 2 [id number] #### [facility] [address] [place] [address] Eosinophils/100 WBC (Bld) 4.3 % Normal 0.0-8.0 Remisol Heme Comment on above: Performed By: #### 2 [id number] #### [facility] [address] [place] [address] Erythrocyte distribution width (RBC) [Ratio] 15.3 % High 10.9-14.2 Remisol Heme Comment on above: Performed By: #### 2 [id number] #### [facility] [address] [place] [address] Hematocrit (Bld) [Volume fraction] 42.1 % Normal 34.0-46.0 Remisol Heme Comment on above: Performed By: #### 2 [id number] #### [facility] [address] [place] [address] Hemoglobin (Bld) [Mass/Vol] 15.1 g/dL Normal 12.0-16.0 Remisol Heme Comment on above: Performed By: #### 2 [id number] #### [facility] [address] [place] [address] Lymphocytes (Bld) [#/Vol] 3.3 E9/L Normal 1.0-4.0 Remisol Heme Comment on above: Performed By: #### 2 [id number] #### [facility] [address] [place] [address] Lymphocytes/100 WBC (Bld) 26.6 % Normal 14.0-50.0 Remisol Heme Comment on above: Performed By: #### 2 [id number] #### [facility] [address] [place] [address] MCH (RBC) [Entitic mass] 30.7 pg Normal 27.0-34.0 Remisol Heme Comment on above: Performed By: #### 2 [id number] #### [facility] [address] [place] [address] MCHC (RBC) [Mass/Vol] 35.9 g/dL Normal 31.4-36.0 Rem isol Heme Comment on above: Performed By: #### 2 [id number] #### [facility] [address] [place] [address] MCV (RBC) [Entitic vol] 85.6 fL Normal 80.0-100.0 R emisol Heme Comment on above: Performed By: #### 2 [id number] #### [facility] [address] [place] [address] Monocytes (Bld) [#/Vol] 0.4 E9/L Normal 0.2-1.0 R emisol Heme Comment on above: Performed By: #### 2 [id number] #### [facility] [address] [place] [address] Neutrophils (Bld) [#/Vol] 8.1 E9/L High 2.0-7.5 Remisol Heme Comment on above: Performed By: #### 2 [id number] #### [facility] [address] [place] [address] Neutrophils/100 WBC (Bld) 65.2 % Normal 36.0-75.0 Remisol Heme Comment on above: Performed By: #### 2 [id number] #### [facility] [address] [place] [address] Platelet 379.0 E9/L Normal 150.0-500. 0 Remisol Heme Comment on above: Performed By: #### 2 [id number] #### [facility] [address] [place] [address] Platelet mean volume (Bld) [Entitic vol] 7.1 fL Normal 6.4-10.8 Remisol Heme Comment on above: Performed By: #### 2 [id number] #### [facility] [address] [place] [address] RBC (Bld) [#/Vol] 4.9 E12/L Normal 4.3-5.9 Remisol Heme Comment on above: Performed By: #### 2 361255 #### [facility] [address] [place] [address] WBC corrected for nucl RBC Auto (Bld) [#/Vol] 12.4 E9/L High 4.0-11.0 Remisol Heme Comment on above: Performed By: #### 2 445702 #### [facility] [address] [place] [address] CHEMISTRYOrdered By: SYSTEM SYSTEM on 12-25-2024 25-hydroxyvitamin [...] Comment on above: Performed By: #### 2 046812 #### [facility] [address] [place] [address] Anion gap [Moles/Vol] 10 mmol/L Normal 6-16 Rem isol Chem Comment on above: Performed By: #### 2 441668 #### [facility] [address] [place] [address] Bilirubin [Mass/Vol] 0.3 mg/dL Normal 0.0-1.1 Jitendra carole Chem Comment on above: Performed By: #### 2 641363 #### [facility] [address] [place] [address] Calcium [Mass/Vol] 9.3 mg/dL Normal 8.9-11.1 Remiso l Chem Comment on above: Performed By: #### 2 915038 #### [facility] [address] [place] [address] Chloride [Moles/Vol] 100 mmol/L Low 101-111 Jitendra carole Chem Comment on above: Performed By: #### 2 892222 #### [facility] [address] [place] [address] CO2 [Moles/Vol] 32 mmol/L High 21-31 Remisol Chem Comment on above: Performed By: #### 2 127089 #### [facility] [address] [place] [address] Creatinine [Mass/Vol] 0.7 mg/dL Normal 0.5-1.3 Rem isol Chem Comment on above: Performed By: #### 2 340707 #### [facility] [address] [place] [address] Globulin (S) [Mass/Vol] 3.9 g/dL Normal 1.4-4.0 R emisol Chem Comment on above: Performed By: #### 2 073984 #### [facility] [address] [place] [address] Glucose [Mass/Vol] 111 mg/dL Normal 55-199 Remiso l Chem Comment on above: Performed By: #### 2 639026 #### [facility] [address] [place] [address] Potassium [Moles/Vol] 3.4 mmol/L Low 3.5-5.3 Rem isol Chem Comment on above: Performed By: #### 2 843887 #### [facility] [address] [place] [address] Protein [Mass/Vol] 8.1 g/dL High 6.0-7.8 Remiso l Chem Comment on above: Performed By: #### 2 414576 #### [facility] [address] [place] [address] Sodium [Moles/Vol] 139 mmol/L Normal 135-145 Remiso l Chem Comment on above: Performed By: #### 2 407187 #### [facility] [address] [place] [address] Urea nitrogen [Mass/Vol] 13 mg/dL Normal 5-21 Remisol Chem Comment on above: Performed By: #### 2 467495 #### [facility] [address] [place] [address] CMPon 12-25-2024 Albumin/Globulin (S) [Mass conc ratio] 1.1 Normal 1.1-2.2 [facility] Comment on above: Performed By: #### 2 436765 #### [facility] [address] [place] [address] ALP [Catalytic activity/Vol] 191 Int._Unit/L High 21-98 [facility] Comment on above: Performed By: #### 2 671669 #### [facility] [address] [place] [address] ALT No additional P-5'-P [Catalytic activity/Vol] 19 Int._Unit/L Normal 6-46 [facility] Comment on above: Performed By: #### 2 120399 #### [facility] [address] [place] [address] AST [Catalytic activity/Vol] 17 Int._Unit/L Normal 5-43 [facility] Comment on above: Performed By: #### 2 525974 #### [facility] [address] [place] [address] Urea nitrogen/Creatinine [Mass ratio] 19 No Units Normal 10-20 [facility] Comment on above: Performed By: #### 2 197945 #### [facility] [address] [place] [address] HEMATOLOGYOrdered By: SYSTEM SYSTEM on 12-25-2024 Monocytes/100 WBC (Bld) 3.2 % Low 4.0 - 14.0 % Remisol Heme [id number] By: Ivanna spicer on 12-25-2024 HbA1c (Bld) [Mass fraction] 5.5 % Normal <=5.9 [facility] Comment on above: Performed By: #### 7 [id number] #### [facility] [address] [place] [address] Reminderson 12-25-2024 Reminders Reminders From: Deirdre Hale To: [facility] [...] 26.6 % (14.0 - 50.0) 12/25/2024 10:00 [place] Auto (L) 3.2 % (4.0 - 14.0) 12/25/2024 10:00 Eos Auto 4.3 % (0.0 - 8.0) 12/25/2024 10:00 Basophil Auto 0.7 % (0.0 - 2.0) 12/25/2024 10:00 Neutro Absolute (H) 8.1 E9/L (2.0 - 7.5) 12/25/2024 10:00 Lymph Absolute 3.3 E9/L (1.0 - 4.0) 12/25/2024 10:00 [place] Absolute 0.4 E9/L (0.2 - 1.0) 12/25/2024 [...] (L) <7.0 ng/mL (30.0 - 100.0) Normal [facility] Vitamin D 25 Hydroxyon 12-25 25-hydroxyvitamin D3 [Mass/Vol] ng/mL Low 30.0-100.0 [facility] Comment on above: Performed By: #### 5 [id number] #### [facility] [address] [place] [address] eGFROrdered By: SAMIR Aponte on 12-25-2024 eGFR 104 mL/min/1.73 m2 Normal >=59 Remiso l Chem Comment on above: Performed By: #### 1 [id number] #### [facility] [address] [place] [address] PAP [id number] 12-19-2024 Cytology report Cyto stain Doc (Cvx/Vag) Note Invalid Interpretation Code [facility] Comment on above: Order Comment: had keri gordon 20 years ago Result Comment: TEST S RESULT FLAG UNITS REF RANGE LAB Clinician Provided Cytology Information Source.............Vagina No. of containers..01 ThinPrep Vial DIAGNOSIS: 01 NEGATIVE FOR INTRAEPITHELIAL LESION OR MALIGNANCY. CELLULAR CHANGES ASSOCIATED WITH INFLAMMATION ARE PRESENT. THIS SPECIMEN WAS RESCREENED PART OF OUR SCOURING TRAIN OPERATOR CHIEF PROGRAM. Specimen adequacy: 01 Satisfactory for evaluation. Performed by: Emma Conn, [place] (ASCP) QC reviewed by: Brittney Martin, [place] (ASC) . 01 Note: Note 01 The Pap [...] <-Panic Low,>-Panic High,A-Abnormal,AA-Critical Abnormal Performed at: [address] [phone] Samantha Rodriguez MD, Performed By: #### 1 [id number] #### [facility] [address] [place] [address] HPV 16+18+31+33+35+39+45+51+ 52+56+58+59+66+68 DNA Probe+sig amp Ql (Cvx) Negative Invalid Interpretation Code Negative [facility] Comment on above: Order Comment: had t lon gordon 20 years ago Result Comment: This nucleic acid amplification test detects fourteen high-risk HPV types (16,18,31,33,35,39,45,51,52,56,58,59,66,68) without differentiation. Performed at: [address] [id number] MD Michael Singh Performed at: =[address] [id number] MD Michael Singh Performed By: #### 1 [id number] #### [facility] [address] [place] [address] Reminderson 12-19-2024 Reminders Reminders From: Deirdre Hale To: [facility] - Clinical; Sent: 12/19/2024 13:17:01 EDT Show up: 12/19/2024 13:17:00 EDT Subject: Ambulatory Reminder Due Date/Time: 12/20/2024 13:16:00 EDT pap was negative Results: Date Result Name Value Ref Range 12/12/2024 14:07 HPV Aptima Negative (Negative - ) 12/12/2024 14:07 PAP Note unable to LVM not set up, will try again Normal [facility] Ambulatory Visit Summaryon 0 12-12-2024 Ambulatory Visit Summary Ambulatory Visi t Summary JESUSJOHANTree Parekr :1975 Visit Date:12/12/2024 Ambulatory Visit Instructions Your [...] Follow-Up Appointments Tuesday 9:20 AM EDT Where: [place] [id number]- You Need to Complete the Following CBC [...] you for choosing us for your care. [facility] Ambulatory Visit Summary Ambulatory Visi [...] Follow-Up Appointments Tuesday 9:20 AM EDT Where: [address] [address]- You Need to Complete the Following CBC [...] choosing us for your care. [facility] Family Medicine Office/Clini c Noteon 12-12-2024 Family [...] vaginal discharge. Hysterectomy Neurologic: Grossly normal Skin: [place], moist, no tenting Lymph Nodes: No cervical [...] cramping, # 10 tab(s), Refills(s) 0, Pharmacy: [facility], 154, cm, 12/12/24 10:51:00 EDT, Height/Length Dosing, 83.5, kg, 12/12/24 10:51:00 EDT, Weight... fluconazole, 150 mg = 1 tab(s), Oral, Once, take 1 tab on day one and 1 tab on day four, # 2 tab(s), Refills(s) 1, Pharmacy: [facility], 154, cm, 12/12/24 10:51:00 EDT, Height/Length Dosing, 83.5, kg, 12/12/24 10:51:00 EDT, Weight Dosing furosemide, 20 mg = 1 tab(s), Oral, Daily, # 30 tab(s), Refills(s) 0, Pharmacy: [facility], 154, cm, 12/12/24 10:51:00 EDT, Height/Length Dosing, 83.5, kg, 12/12/24 10:51:00 EDT, Weight Dosing CBC w/ Auto Diff CBC w/ Auto Diff Comprehensive Metabolic Panel ECG 12 Lead Adult Echo Transthoracic Complete Est Preventative 40 to 64 years [address] PAP [id number] w/ HPV and Genotype rflx 2. Breast cancer screening (Z12.39: Encounter for other screening for malignant neoplasm of breast) order for mammogram provieded Ordered: dicyclomine, 20 mg = 1 tab(s), Oral, BID, PRN Spasm, 30 to 60 minutes before meals for stomach cramping, # 10 tab(s), Refills(s) 0, Pharmacy: [facility], 154, cm, 12/12/24 10:51:00 EDT, Height/Length Dosing, 83.5, kg, 12/12/24 10:51:00 EDT, Weight... fluconazole, 150 mg = 1 tab(s), Oral, Once, take 1 tab on day one and 1 tab on day four, # 2 tab(s), Refills(s) 1, Pharmacy: [facility], 154, cm, 12/12/24 10:51:00 EDT, Height/Length Dosing, 83.5, kg, 12/12/24 10:51:00 EDT, Weight Dosing furosemide, 20 mg = 1 tab(s), Oral, Daily, # 30 tab(s), Refills(s) 0, Pharmacy: [facility], 154, cm, 12/12/24 10:51:00 EDT, Height/Length Dosing, 83.5, kg, 12/12/24 10:51:00 EDT, Weight Dosing CBC w/ Auto Diff CBC w/ Auto Diff Comprehensive Metabolic Panel ECG 12 Lead Adult Echo Transthoracic Complete Est Preventative 40 to 64 years [address] PAP [id number] w/ HPV and Genotype rflx 3. Cervical cancer screening (Z12.4: Encounter for screening for malignant neoplasm of cervix) pap obtained. pt had hyst 20 years ago Ordered: dicyclomine, 20 mg = 1 tab(s), Oral, BID, PRN Spasm, 30 to 60 minutes before meals for stomach cramping, # 10 tab(s), Refills(s) 0, Pharmacy: [facility], 154, cm, 12/12/24 10:51:00 EDT, Height/Length Dosing, 83.5, kg, 12/12/24 10:51:00 EDT, Weight... fluconazole, 150 mg = 1 tab(s), Oral, Once, take 1 tab on day one and 1 tab on day four, # 2 tab(s), Refills(s) 1, Pharmacy: [facility], 154, cm, 12/12/24 10:51:00 EDT, Height/Length Dosing, 83.5, kg, 12/12/24 10:51:00 EDT, Weight Dosing furosemide, 20 mg = 1 tab(s), Oral, Daily, # 30 tab(s), Refills(s) 0, Pharmacy: [facility], 154, cm, 12/12/24 10:51:00 EDT, Height/Length Dosin (more content not included)... Normal [facility] Comment on above: Result Comment: Elec tronically Signed By: Deirdre Hale\.br\Date and Time Signed: 12/12/24 14:53 EDT PAP [id number] 12-12-2024 Gynecological Body Site VAGINA Normal [facility] Comment on above: Order Comment: had t otal hyst 20 years ago Performed By: #### 1 [id number] #### [facility] [address] [place] [address] Ambulatory Visit Summaryon 0 10-31-2024 Ambulatory Visit Summary Ambulatory Visi t Summary MORALES LEE :1975 Visit Date:10/31/2024 Ambulatory Visit Instructions Your Diagnosis Indwelling Alvares catheter present BMI 35.0-35.9,adult Smoker Your Care Team Attending Physician - Deirdre Hale Primary Care Physician - MICAH HARKINS, MENDOSA This Is Your Medications List buprenorphine-naloxone (Suboxone [...] Tuesday 9:30 AM EDT With: Where: [facility] Tuesday 9:00 AM EDT With: Where: [facility] Tuesday 9:00 AM EDT With: Where: [facility] Tuesday 11:20 AM EDT With: Deirdre Hale Where: [address] [address]- Tuesday 11:40 AM EDT With: Deirdre Hale Where: [address] [address]- Medications What How Much When Instructions Unchanged [...] for choosing us for your care. Normal [facility] Family Medicine Office/Clini c Noteon 10-31-2024 Family Medicine Office/Clinic Note Family Medicine Office/Clinic Note HPI Staff Morales is a 49 year old female presenting to establish care Establish Care: History: Any previous diagnosis: HTN, Insomnia (Pt has indwelling catheter), Anxiety History of seeing any specialist: Urology [facility], Neurosurgeon Dr elsa frederick , Clinic in [facility] for Suboxone When was your last doctors visit: Last provider: [place] Any recent labs: Health Maintenance UTD: Colonoscopy: [...] BID, # 60 cap(s), Refills(s) 0, Pharmacy: [facility], 154, cm, 10/31/24 13:29:00 EST, Height/Length Dosing, 83.5, kg, 10/31/24 13:29:00 EST, Weight Dosing 2. depression (F32.A: Depression, unspecified) see above Ordered: duloxetine, 30 mg = 1 cap(s), Oral, BID, # 60 cap(s), Refills(s) 0, Pharmacy: [facility], 154, cm, 10/31/24 13:29:00 EST, Height/Length [...] BID, # 60 cap(s), Refills(s) 0, Pharmacy: [facility], 154, cm, 10/31/24 13:29:00 EST, Height/Length Dosing, 83.5, kg, 10/31/24 13:29:00 EST, Weight Dosing Drug Screen POC 02782 4. Lower extremity edema (R60.0: Localized edema) pt states the last couple of days her lower legs started swelling again. she took a lasix but then had spasms in bladder. encouraged her to cut the pill in half Ordered: duloxetine, 30 mg = 1 cap(s), Oral, BID, # 60 cap(s), Refills(s) 0, Pharmacy: [facility], 154, cm, 10/31/24 13:29:00 EST, Height/Length [...] BID, # 60 cap(s), Refills(s) 0, Pharmacy: [facility], 154, cm, 10/31/24 13:29:00 EST, Height/Length Dosing, 83.5, kg, 10/31/24 13:29:00 EST, Weight Dosing 6. BMI 35.0-35.9,adult (Z68.35: Body mass index [BMI] 35.0-35.9, adult) BMI education given Ordered: duloxetine, 30 mg = 1 cap(s), Oral, BID, # 60 cap(s), Refills(s) 0, Pharmacy: [facility], 154, cm, 10/31/24 13:29:00 EST, Height/Length Dosing, 83.5, kg, 10/31/24 13:29:00 EST, Weight Dosing 7. Smoker (F17.200: Nicotine dependence, unspecified, uncomplicated) consider not smoking Ordered: duloxetine, 30 mg = 1 cap(s), Oral, BID, # 60 cap(s), Refills(s) 0, Pharmacy: [facility], 154, cm, 10/31/24 13:29:00 EST, Height/Length Dosing, 83.5, kg, 10/31/24 13:29:00 EST, Weight Dosing Orders: diazepam, 5 mg = 1 tab(s), Oral, TID, # 90 tab(s), Refills(s) 0, Pharmacy: [facility], 154, cm, 10/31/24 13:29:00 EST, Height/Length Dosing, 83.5, kg, 10/31/24 13:29:00 EST, Weight Dosing Follow-up No qualifying data available Problem List/Past Medical History Ongoing BMI 32.0-32.9,adult Chronic (more content not included)... Normal [facility] Comment on above: Result Comment: Elec tronically Signed By: Deirdre Hale\Date and Time Signed: 10/31/24 14:46 EST CBC AND AUTO DIFFon 10-01-19 ABSOLUTE BASOPHIL 0.1 X10E9/L Normal 0.0-0.2 [facility] Comment on above: Performed By: #### C BCA, CMP, 3040-3, 54347-0, 01962-4, THYR #### [facility] ([id number]) [address] [place] [address] ABSOLUTE NEUTROPHIL 8.0 X10E9/L High 1.5-6.6 [facility] Comment on above: Performed By: #### C BCA, CMP, 3040-3, 33272-3, 89271-0, THYR #### [facility] ([id number]) [address] [place] [address] Basophils/100 WBC (Bld) 0.7 % Normal [facility] Comment on above: Performed By: #### C BCA, CMP, 3040-3, 95269-9, 25860-3, THYR #### [facility] ([id number]) [address] [place] [address] Eosinophils (Bld) [#/Vol] 0.3 10*3/uL Normal 0.0-0.4 [facility] Comment on above: Performed By: #### C BCA, CMP, 3040-3, 60005-8, 53429-9, THYR #### [facility] ([id number]) [address] [place] [address] Eosinophils/100 WBC (Bld) 2.7 % Normal [facility] Comment on above: Performed By: #### C BCA, CMP, 3040-3, 10054-7, 44729-5, THYR #### [facility] ([id number]) [address] [place] [address] Erythrocyte distribution width (RBC) [Ratio] 18.6 % High 11.5-15.0 [facility] Comment on above: Performed By: #### C DARIUS ROSADO, 3040-3, , 50052-5, THYR #### [facility] ([id number]) [address] [place] [address] Hematocrit (Bld) [Volume fraction] 47.5 % High 35-47 [facility] Comment on above: Performed By: #### C ALONZO, DARIUS, 0-3, 16507-1, 67702-0, THYR #### [facility] ([id number]) [address] [place] [address] Hemoglobin (Bld) [Mass/Vol] 16.6 g/dL High 11.7-15.5 [facility] Comment on above: Performed By: #### C DARIUS RSOADO, 0-3, , 88888-0, THYR #### [facility] ([id number]) [address] [place] [address] Lymphocytes (Bld) [#/Vol] 3.8 10*3/uL High 1.0-3.5 [facility] Comment on above: Performed By: #### C DARIUS ROSADO, 0-3, , 56296-4, THYR #### [facility] ([id number]) [address] [place] [address] Lymphocytes/100 WBC (Bld) 29.6 % Normal [facility] Comment on above: Performed By: #### C ALONZO, CMP, 3040-3, , 45576-6, THYR #### [facility] ([id number]) [address] [place] [address] MCH (RBC) [Entitic mass] 29.4 pg Normal 27-34 [facility] Comment on above: Performed By: #### C BCA, CMP, 3040-3, 28242-7, 67250-4, THYR #### [facility] ([id number]) [address] [place] [address] MCHC (RBC) [Mass/Vol] 34.9 g/dL Normal 32-36 [facility] Comment on above: Performed By: #### C BCA, CMP, 3040-3, 84582-1, 13987-4, THYR #### [facility] ([id number]) [address] [place] [address] MCV (RBC) [Entitic vol] 84 fL Normal 80-100 P [facility] Comment on above: Performed By: #### C BCA, CMP, 3040-3, 14376-7, 60601-2, THYR #### [facility] ([id number]) [address] [place] [address] Monocytes (Bld) [#/Vol] 0.6 10*3/uL Normal 0-0.9 [facility] Comment on above: Performed By: #### C BCA, CMP, 3040-3, 85714-6, 00754-2, THYR #### [facility] ([id number]) [address] [place] [address] Monocytes/100 WBC (Bld) 4.6 % Normal P [facility] Comment on above: Performed By: #### C BCA, CMP, 3040-3, 65008-4, 37548-8, THYR #### [facility] ([id number]) [address] [place] [address] Neutrophils/100 WBC (Bld) 62.4 % Normal [facility] Comment on above: Performed By: #### C BCA, CMP, 3040-3, 66078-5, 67810-2, THYR #### [facility] ([id number]) [address] [place] [address] Platelet mean volume (Bld) [Entitic vol] 8.2 fL Normal 7-12 [facility] Comment on above: Performed By: #### C ALONZO, CMP, 3040-3, 51347-6, 76290-0, THYR #### [facility] ([id number]) [address] [place] [address] Platelets (Bld) [#/Vol] 296 10*3/uL Normal 150-450 [facility] Comment on above: Performed By: #### C ALONZO, CMP, 3040-3, 07628-2, 00736-5, THYR #### [facility] ([id number]) [address] [place] [address] RBC COUNT 5.64 X10E12/L High 3.80-5.20 [facility] Comment on above: Performed By: #### C BCA, CMP, 3040-3, 10065-2, 07806-0, THYR #### [facility] ([id number]) [address] [place] [address] WBC (Bld) [#/Vol] 12.9 10*3/uL High 4.0-11.0 [facility] Comment on above: Performed By: #### C BCA, CMP, 3040-3, 56993-7, 00030-7, THYR #### [facility] ([id number]) [address] [place] [address] CBC auto differentialon 09-06 Basophils (Bld) [#/Vol] 0.1 10*3/uL [facility] Basophils/100 WBC (Bld) 0.7 % [facility] Eosinophils (Bld) [#/Vol] 0.3 10*3/uL [facility] Eosinophils/100 WBC (Bld) 2.7 % [facility] Erythrocyte distribution width (RBC) [Ratio] 18.6 % High 11.5 - 15.0 % [facility] Hematocrit (Bld) [Volume fraction] 47.5 % High 35 - 47 % [facility] Hemoglobin (Bld) [Mass/Vol] 16.6 g/dL High 11.7 - 15.5 g/dL [facility] Interpretation and review of laboratory results Abnormal [facility] Lymphocytes (Bld) [#/Vol] 3.8 10*3/uL High [facility] Lymphocytes/100 WBC (Bld) 29.6 % [facility] MCH (RBC) [Entitic mass] 29.4 pg 27 - 34 pg [facility] MCHC (RBC) [Mass/Vol] 34.9 g/dL 32 - 3 6 g/dL [facility] MCV (RBC) [Entitic vol] 84 fL 80 - 100 fL [facility] Monocytes (Bld) [#/Vol] 0.6 10*3/uL [facility] Monocytes/100 WBC (Bld) 4.6 % [facility] Neutrophils (Bld) [#/Vol] 8 10*3/uL High [facility] Neutrophils/100 WBC (Bld) 62.4 % [facility] Platelet mean volume (Bld) [Entitic vol] 8.2 fL 7 - 12 fL [facility] Platelets (Bld) [#/Vol] 296 10*3/uL [facility] RBC (Bld) [#/Vol] 5.64 10*6/uL High [facility] WBC corrected for nucl RBC Auto (Bld) [#/Vol] 12.9 High [facility] COMPREHENSIVE METABOLIC PANE Geoff 10-01-2024 Albumin [Mass/Vol] 5.0 g/dL Normal 3.2-5.3 [facility] Comment on above: Performed By: #### C BCA, CMP, 3040-3, 88494-0, 08385-8, THYR #### [facility] ([id number]) [address] [place] [address], [place] [address] ALP [Catalytic activity/Vol] 173 U/L High 39-130 [facility] Comment on above: Performed By: #### C BCA, CMP, 3040-3, 55272-3, 48059-7, THYR #### [facility] ([id number]) [address] [place] [address] ALT [Catalytic activity/Vol] 21 U/L Normal 0-31 [facility] Comment on above: Performed By: #### C BCA, CMP, 3040-3, 86091-5, 72476-6, THYR #### [facility] ([id number]) [address] [place] [address] Anion gap [Moles/Vol] 10 mmol/L Normal 5-15 [facility] Comment on above: Performed By: #### C BCA, CMP, 3040-3, 46988-4, 84162-5, THYR #### [facility] ([id number]) [address] [place] [address] AST [Catalytic activity/Vol] 38 U/L Normal 0-41 [facility] Comment on above: Performed By: #### C BCA, CMP, 3040-3, 97717-0, 43638-9, THYR #### [facility] ([id number]) [address] [place] [address] Bilirubin [Mass/Vol] 1.2 mg/dL Normal 0.3-1.2 [facility] Comment on above: Performed By: #### C BCA, CMP, 3040-3, 12718-4, 80723-8, THYR #### [facility] ([id number]) [address] [place] [address]20 Calcium [Mass/Vol] 9.8 mg/dL Normal 8.5-10.5 [facility] Comment on above: Performed By: #### C BCA, CMP, 3040-3, 32535-4, 36248-6, THYR #### [facility] ([id number]) [address] [place] [address]25 Chloride [Moles/Vol] 100 mmol/L Normal 98-109 [facility] Comment on above: Performed By: #### C BCA, CMP, 3040-3, 44044-7, 55049-2, THYR #### [facility] ([id number]) [address] [place] [address]706 CO2 [Moles/Vol] 26 mmol/L Normal 22-32 [facility] Comment on above: Performed By: #### C BCA, CMP, 3040-3, 60376-2, 44502-5, THYR #### [facility] ([id number]) [address] [place] [address] 01370 Creatinine [Mass/Vol] 0.81 mg/dL Normal 0.40-1.00 [facility] Comment on above: Result Comment: METH OD TRACEABLE TO IDMS STANDARD Performed By: #### C BCA, CMP, 3040-3, 14449-2, 58505-4, THYR #### [facility] ([id number]) [address] [place] [address] 67833 GFR/1.73 sq M.predicted among non-blacks MDRD (S/P/Bld) [Vol rate/Area] 88 mL/min/{1.73_m2} Normal >59 [facility] Comment on above: Result Comment: Reported eGFR is based on the CKD-EPI 2020 equation that does not use a race coefficient. Performed By: #### C BCA, CMP, 3040-3, 87971-0, 16367-3, THYR #### [facility] ([id number]) [address] [place] [address] 88233 Glucose [Mass/Vol] 103 mg/dL High 65-99 [facility] Comment on above: Performed By: #### C BCA, CMP, 3040-3, 46363-2, 76248-9, THYR #### [facility] ([id number]) [address] [place] [address] 93234 Potassium [Moles/Vol] 3.4 mmol/L Low 3.5-5.0 [facility] Comment on above: Performed By: #### C BCA, CMP, 3040-3, 92586-3, 46910-9, THYR #### [facility] ([id number]) [address] [place] [address] 81967 Protein [Mass/Vol] 9.3 g/dL High 6.0-8.0 [facility] Comment on above: Performed By: #### C BCA, CMP, 3040-3, 82878-1, 67252-5, THYR #### [facility] ([id number]) [address] [place] [address] 32229 Sodium [Moles/Vol] 136 mmol/L Normal 134-146 [facility] Comment on above: Performed By: #### C BCA, CMP, 3040-3, 11103-2, 00408-5, THYR #### [facility] ([id number]) [address] [place] [address] 51934 Urea nitrogen [Mass/Vol] 8 mg/dL Normal 5-23 [facility] Comment on above: Performed By: #### C BCA, CMP, 3040-3, 26485-6, 15042-1, THYR #### [facility] ([id number]) [address] [place] [address] LUMBAR SPINE WO CONTon CT LUMBAR [...] Finney MD on 10/01/2024 1:05 AM Normal [facility] CT Lumbar spine WO contrasto n [...] Balbir Finney MD on 10/01/2024 1:05 AM [facility] Balbir Finney MD - 10/01/2024 EXAM: CT [...] Balbir Finney MD on 10/01/2024 1:05 AM [facility] (narrative) [facility] CT Lumbar spine WO contrastO rdered By: Balbir Finney on 10-01-2024 [facility] Work Phone: CT THORACIC SPINE WO CONTon 10-01-2024 CT THORACIC SPINE WO CONT CT THORACIC SPINE WO CONT *ADDENDUM*ADDENDUM: Fusion of the thoracolumbar spine is seen extending to S1 on the dedicated CT of the lumbar spine also performed on 10/01/2024. Impression: See above. Finalized by Balbir Finney MD on 10/01/2024 1:05 AM Normal [facility] CT Thoracic spine WO contras ton 10-01-2024 Addendum by Balbir Finney MD on 10/01/2024 1:05 AM EST *ADDENDUM*ADDENDUM: Fusion of the thoracolumbar spine is seen extending to S1 on the dedicated CT of the lumbar spine also performed on 10/01/2024. Impression: See above. Finalized by Balbir Finney MD on 10/01/2024 1:05 AM [facility] EX[facility]: CT THORACIC SP INE WITHOUT CONTRAST [...] Balbir Finney MD on 10/01/2024 1:01 AM [facility] Balbir Finney MD - 10/01/2024 EXAM: CT [...] Balbir Finney MD on 10/01/2024 1:01 AM [facility] Radiology Study observation (narrative) [facility] Comprehensive metabolic pane geoff 10-01-2024 Albumin [Mass/Vol] 5 g/dL 3.2 - 5.3 g/dL [facility] ALP [Catalytic activity/Vol] 173 U/L High 39 - 130 U/L [facility] ALT No additional P-5'-P [Catalytic activity/Vol] 21 U/L 0 - 31 U/L [facility] Anion gap [Moles/Vol] 10 mmol/L 5 - 15 mmol/L [facility] AST [Catalytic activity/Vol] 38 U/L 0 - 41 U/L [facility] Bilirubin [Mass/Vol] 1.2 mg/dL 0.3 - 1 .2 mg/dL [facility] Calcium [Mass/Vol] 9.8 mg/dL 8.5 - 10. 5 mg/dL [facility] Chloride [Moles/Vol] 100 mmol/L 98 - 10 9 mmol/L [facility] CO2 [Moles/Vol] 26 mmol/L 22 - 32 mmol/L [facility] Creatinine [Mass/Vol] 0.81 mg/dL 0.40 - 1.00 mg/dL [facility] Comment on above: METHOD TRACEABLE TO BACKUS HOSPITAL STANDARD eGFR (CKD-EPI)non-race dependent 88 - PINF [facility] Comment on above: Reported eGFR is based on the CKD-EPI 2020 equation that does not use a race coefficient. Glucose [Mass/Vol] 103 mg/dL High 65 - 99 mg/dL [facility] Interpretation and review of laboratory results Abnormal [facility] Potassium [Moles/Vol] 3.4 mmol/L Low 3.5 - 5.0 mmol/L [facility] Protein [Mass/Vol] 9.3 g/dL High 6.0 - 8.0 g/dL [facility] Sodium [Moles/Vol] 136 mmol/L 134 - 146 mmol/L [facility] Urea nitrogen [Mass/Vol] 8 mg/dL 5 - 23 mg/dL [facility] LIPASEon 10-01-2024 Lipase [Catalytic activity/Vol] 30 U/L Normal 17-40 [facility] Comment on above: Performed By: #### C BCA, CMP, 3040-3, 00857-5, 55347-6, THYR #### [facility] ([id number]) [address] [place] [address], [place] [address] Laboratory - Microbiology an d Antimicrobial susceptibilityon 10-01-2024 FLUAV+FLUBV RNA ADRIÁN+probe Ql (Unsp spec) Negative Negative^N egative [facility] Lipaseon 10-01-2024 Lipase [Catalytic activity/Vol] 30 U/L 17 - 40 U/L [facility] Lipase [Catalytic activity/V ol]on 10-01-2024 [facility] MAGNESIUMon 10-01-2024 Magnesium [Mass/Vol] 2.0 mg/dL Normal 1.8-2.6 [facility] Comment on above: Performed By: #### C BCA, CMP, 3040-3, 03333-1, 68465-9, THYR #### [facility] ([id number]) [address] [facility] [place] [address] Magnesiumon 10-01-2024 Magnesium [Mass/Vol] 2 mg/dL 1.8 - 2 .6 mg/dL [facility] No Panel Informationon 10-01 [facility] SARS/FLU A+B/RSV by NAAT/Mol ecularon 10-01-2024 [...] operators who are performing tests using either [employer] or [employer] systems and is limited to laboratories that [...] repeat. Fact Sheet for Healthcare Providers: https://www.fda.gov/media /551857/download Fact Sheet for Patients: https://www.fda.gov/media /582114/download Normal [facility] SARS/FLU A+B/RSV by NAAT/Mol ecular (M4RT Collection Tube)on 10-01-2024 RSV RNA ADRIÁN+probe Nom (Unsp spec) Negative Negative^N egative [facility] SARS-CoV-2 (COVID-19) RNA ADRIÁN+probe Ql (Resp) Not detected Not Detected^N ot Detected [facility] Comment on above: NOTE The Xpert [...] operators who are performing tests using either [employer] or [employer] systems and is limited to laboratories that [...] specimen repeat. Fact Sheet for Healthcare Providers: https://www.fda.gov/media/218102/download Fact Sheet for Patients: https://www.fda.gov/media/676913/download [facility] THYROID PROFILEon 10-01-2024 Free T4 [Mass/Vol] 1.14 ng/dL Normal 0.61-1.60 [facility] Comment on above: Performed By: #### C ALONZO [facility], 3040-3, 96308-4, 51596-7, THYR #### [facility] ([id number]) [address] [place] [address] 86195 TSH 3.02 uIU/mL Normal 0.49-4.67 [facility] Comment on above: Performed By: #### C ALONZO, [facility], 3040-3, 62434-0, 92109-6, THYR #### [facility] ([id number]) [address] [place] [address] 67409 Thyroid profile includes TSH FT4on 10-01-2024 Free T4 [Mass/Vol] 1.14 ng/dL 0.61 - 1.60 ng/dL [facility] TSH Qn 3.02 m[IU]/L [facility] Troponin I, High Sensitivity on 10-01-2024 Troponin I.cardiac High sensitivity method [Mass/Vol] ng/L NINF - 16 ng/L [facility] Troponin I, High Sensitivity 1 Houron 10-01-2024 Troponin I.cardiac High sensitivity method [Mass/Vol] ng/L NINF - 16 ng/L [facility] Troponin I.cardiac High sens itivity method [Mass/Vol]on 10-01-2024 [facility] 1 HOUR TROP I, HIGH SENSITIVITY <2 Normal <16 [facility] Comment on above: Performed By: #### C BCA, CMP, 3040-3, 29179-9, 47271-6, THYR #### [facility] ([id number]) [address] [place] [address] [facility] TROPONIN I, HIGH SENSITIVITY <2 Normal <16 [facility] Comment on above: Performed By: #### C BCA, CMP, 3040-3, 95744-1, 46741-3, THYR #### [facility] ([id number]) [address] [place] [address] [place] [address] URINALYSISon 10-01-2024 Bilirubin Ql (U) Negative Normal NEG [facility] Comment on above: Performed By: #### C BCA, CMP, 3040-3, 87775-1, 57660-0, THYR #### [facility] ([id number]) [address] [place] [address] 40451 BLOOD/HGB Trace Abnormal NEG [facility] Comment on above: Performed By: #### C BCA, CMP, 3040-3, 23984-9, 78509-6, THYR #### [facility] ([id number]) [address] [place] [address] [place] [address] Color (U) YELLOW Normal YELLOW [facility] Comment on above: Performed By: #### C BCA, CMP, 3040-3, 22762-5, 94802-5, THYR #### [facility] ([id number]) [address] [place] [address] [place] [address] Glucose Ql (U) Negative Normal NEG [facility] Comment on above: Performed By: #### C BCA, CMP, 3040-3, 40203-0, 79158-3, THYR #### [facility] ([id number]) [address] [place] [address] 01765 Ketones Ql (U) Negative Normal NEG [facility] Comment on above: Performed By: #### C BCA, CMP, 3040-3, 14687-7, 99917-0, THYR #### [facility] ([id number]) [address] [place] [address] 24175 Leukocyte esterase Test strip Ql (U) SMALL Abnormal NEG [facility] Comment on above: Performed By: #### C BCA, CMP, 3040-3, 11990-1, 86048-5, THYR #### [facility] ([id number]) [address] [place] [address] 41321 Nitrite Ql (U) Negative Normal NEG [facility] Comment on above: Performed By: #### C BCA, CMP, 3040-3, 24748-3, 95674-9, THYR #### [facility] ([id number]) [address] [place] [address] 93176 pH (U) 6.0 [pH] Normal 5.0-8.5 [facility] Comment on above: Performed By: #### C BCA, CMP, 3040-3, 76091-7, 95238-6, THYR #### [facility] ([id number]) [address] [place] [address] [place] [address] Protein Ql (U) Negative Normal NEG [facility] Comment on above: Performed By: #### C BCA, CMP, 3040-3, 81020-7, 35153-6, THYR #### [facility] ([id number]) [address] [place] [address] 004[address] R.B.CELLS 1 /hpf Normal 0-5 [facility] Comment on above: Performed By: #### C BCA, CMP, 3040-3, 58111-2, 59802-0, THYR #### [facility] ([id number]) [address] [place] [address] 80052 Specific gravity (U) [Rel density] <1.005 Normal 1.003-1.03 5 [facility] Comment on above: Performed By: #### C BCA, CMP, 3040-3, 21878-1, 86717-7, THYR #### [facility] ([id number]) [address] [place] [address] 04097 SQUAMOUS EPITHELIUM 1 /hpf Normal 0-5 [facility] Comment on above: Performed By: #### C BCA, CMP, 3040-3, 85447-9, 08363-7, THYR #### [facility] ([id number]) [address] [place] [address] 61582 TURBIDITY CLEAR Normal CLEAR [facility] Comment on above: Performed By: #### C BCA, CMP, 3040-3, 65709-5, 34235-8, THYR #### [facility] ([id number]) [address] [place] [address] 55446 Urobilinogen Qn (U) 0.2 {Tesha'U}/dL Normal <1.1 [facility] Comment on above: Performed By: #### C BCA, CMP, 3040-3, 40981-2, 31814-3, THYR #### [facility] ([id number]) [address] [place] [address] 10576 W.B.CELLS 2 /hpf Normal 0-5 [facility] Comment on above: Performed By: #### C BCA, CMP, 3040-3, 14371-5, 91143-0, THYR #### [facility] ([id number]) [address] [place] [address] 94520 URINE CULTUREon 10-01-2024 Bacteria identified Cx Nom (U) CULTURE RESULTS 10-50,000 ORGANISMS/mL NORMAL UROGENITAL ROSANNA Normal [facility] Comment on above: Performed By: #### C BCA, CMP, 3040-3, 42890-7, 08098-7, THYR #### [facility] ([id number]) [address] [facility] [place] [address] Urinalysison 10-01-2024 Bilirubin Ql (U) Negative Negative^N egative [facility] Color (U) YELLOW YELLOW^YEL LOW [facility] Epithelial cells Auto (Urine sed) [#/Area] 1 [facility] Glucose (U) [Mass/Vol] Negative Negat magda^N egative mg/dL [facility] Hemoglobin Auto test strip Ql (U) Trace Abnormal Negative^N egative [facility] Interpretation and review of laboratory results Abnormal [facility] Ketones (U) [Mass/Vol] Negative Negat magda^N egative mg/dL [facility] Leukocyte esterase Auto test strip Ql (U) SMALL Abnormal Negative^N egative [facility] Nitrite Auto test strip Ql (U) Negative Negative^N egative [facility] pH (U) 6 [pH] 5.0 - 8.5 [facility] Protein (U) [Mass/Vol] Negative Negat magda^N egative mg/dL [facility] RBC Auto (Urine sed) [#/Area] 1 [facility] Specific gravity Refractometry automated (U) [Rel density] 1.003 - 1.035 [facility] Turbidity Ql (U) CLEAR CLEAR^GUERO R [facility] Urobilinogen Qn (U) 0.[address] [facility] WBC Auto (Urine sed) [#/Area] 2 [facility] XR CHEST 1 VWon 10-01-2024 XR CHEST [...] Velazquez MD on 10/01/2024 1:04 AM Normal [facility] XR Chest Single viewon 10-01 HISTORY: Chest pain COMPARISON: Chest x-ray 10/25/2014 FINDINGS: AP semiupright view of the chest was performed. Cardiac silhouette is within normal limits. No significant airspace consolidation or vascular congestion. No pleural effusion or pneumothorax. Intact cervical and thoracic fusion hardware. IMPRESSION: * No acute abnormality. Finalized by Sanchez Velazquez MD on 10/01/2024 1:04 AM [facility] Sanchez Velazquez M D - 10/01/2024 HISTORY: Chest pain COMPARISON: Chest x-ray 10/25/2014 FINDINGS: AP semiupright view of the chest was performed. Cardiac silhouette is within normal limits. No significant airspace consolidation or vascular congestion. No pleural effusion or pneumothorax. Intact cervical and thoracic fusion hardware. IMPRESSION: * No acute abnormality. Finalized by Sanchez Velazquez MD on 10/01/2024 1:04 AM [facility] Radiology Study observation (narrative) [facility] Panève [facility] XR Chest Single viewOrdered By: Sanchez Velazquez on 10-01-2024 [facility] Work Phone: Urine Cultureon 09-01-2024 Bacteria identified Cx Nom (U) No Growth 2 Days PERFORMED BY: [place] [address] PATHOLOGIST BACK FILLER OPERATOR ISMAEL ELIZABETH M.D. Normal [facility] Comment on above: Performed By: #### C UU #### [address] COMPLIANCE DRUG ANALYSIS, UR on 05-22-2024 [...] consultation, please call . ======= Performed at: [facility] [address] [place] [address] [id number] Rug Drying Machine Operator: Neli [facility], Phone: [phone] Specimen Comment: [employer]ox[employer], [facility] FLEX or MAT drug testin Specimen Comment: -Technical component - Data analysis performed at Specimen Comment: [facility], [address] [place] [address] Specimen Comment: [id number]. [phone] Rug Drying Machine Operator Jaems Barrera MD. [facility] abuse panel Screen (U)on 05-18-2024 [...] antidepressants [Mass/Vol] N [facility] CULTURE URINEon 01-16-2023 CULTURE URINE Isolate [...] Performed By: #### U MICRO, ERUR #### [facility] [address] [place] [address] Dr. Alfredo Lizama CBC AUTO DIFFon 01-13-2023 BASO # 0.1 103/ul Normal 0.0-0.1 [facility] Comment on above: Performed By: #### U MICRO, ERUR #### [facility] [address] [place] [address] Dr. Alfredo Lizama Basophils/100 WBC (Bld) 0.7 % Normal 0.2-2.0 [facility] Comment on above: Performed By: #### U MICRO, ERUR #### [facility] [address] [place] [address] Dr. Alfredo Lizama EO # 0.3 103/ul Normal 0.0-0.7 [facility] Comment on above: Performed By: #### U MICRO, ERUR #### [facility] [address] [place] [address] Dr. Alfredo Lizama Eosinophils/100 WBC (Bld) 3.2 % Normal 0.9-7.0 [facility] Comment on above: Performed By: #### U MICRO, ERUR #### [facility] [address] [place] [address] Dr. Alfredo Lizama Erythrocyte distribution width (RBC) [Ratio] 13.0 % Normal 11.0-15.0 [facility] Comment on above: Performed By: #### U MICRO, ERUR #### [facility] [address] [place] [address] Dr. Alfredo Lizama Hematocrit (Bld) [Volume fraction] 43.2 % Normal 36.0-48.0 [facility] Comment on above: Performed By: #### U MICRO, ERUR #### [facility] [address] [place] [address] Dr. Alfredo Lizama Hemoglobin (Bld) [Mass/Vol] 14.1 g/dL Normal 12.0-16.0 [facility] Comment on above: Performed By: #### U MICRO, ERUR #### [facility] [address] [address] [address] Alfredo Lizama IG # 0.02 10e3/ul Normal 0.00-0.03 [facility] Comment on above: Performed By: #### U MICRO, ERUR #### [facility] [address] [place] [address] Dr. Alfredo Lizama IG % 0.2 % Normal 0.0-0.5 [facility] Comment on above: Performed By: #### U MICRO, ERUR #### [facility] [address] [place] [address] Dr. Alfredo Lizama LYMPH # 3.0 103/ul Normal 1.2-3.8 [facility] Comment on above: Performed By: #### U MICRO, ERUR #### [facility] [address] [place] [address] Dr. Alfredo Lizama Lymphocytes/100 WBC (Bld) 35.6 % Normal 20.5-60.0 [facility] Comment on above: Performed By: #### U MICRO, ERUR #### [facility] [address] [place] [address] Dr. Alfredo Lizama MANUAL DIFF REQ NO Normal [facility] Comment on above: Performed By: #### U MICRO, ERUR #### [facility] [address] [place] [address] Dr. Alfredo Lizama MCH (RBC) [Entitic mass] 29.4 pg Normal 26.7-34.0 [facility] Comment on above: Performed By: #### U MICRO, ERUR #### [facility] [address] [place] [address] Dr. Alfredo Lizama MCHC (RBC) [Mass/Vol] 32.6 g/dL Normal 29.9-35.2 [facility] Comment on above: Performed By: #### U MICRO, ERUR #### [facility] [address] [place] [address] Dr. Alfredo Lizama MCV (RBC) [Entitic vol] 90.0 fL Normal 81.0-99.0 [facility] Comment on above: Performed By: #### U MICRO, ERUR #### [facility] [address] [place] [address] Dr. Alfredo Lizama MONO # 0.4 103/ul Normal 0.3-0.8 [facility] Comment on above: Performed By: #### U MICRO, ERUR #### [facility] [address] [place] [address] Dr. Alfredo Lizama Monocytes/100 WBC (Bld) 4.8 % Normal 1.7-12.0 [facility] Comment on above: Performed By: #### U MICRO, ERUR #### [facility] [address] [place] [address] Dr. Alfredo Lizama NEUT # 4.7 103/ul Normal 1.4-6.5 [facility] Comment on above: Performed By: #### U MICRO, ERUR #### [facility] [address] [place] [address] Dr. Alfredo Lizama Neutrophils/100 WBC (Bld) 55.5 % Normal 43.0-75.0 [facility] Comment on above: Performed By: #### U MICRO, ERUR #### [facility] [address] [place] [address] Dr. Alfredo Lizama Platelet mean volume (Bld) [Entitic vol] 9.5 fL Normal 9.5-13.5 [facility] Comment on above: Performed By: #### U MICRO, ERUR #### [facility] [address] [place] [address] Dr. Alfredo Lizama PLT 267 103/ul Normal 150-450 [facility] Comment on above: Performed By: #### U MICRO, ERUR #### [facility] [address] [place] [address] Dr. Alfredo Lizama RBC 4.80 106/ul Normal 4.20-5.40 [facility] Comment on above: Performed By: #### U MICRO, ERUR #### [facility] [address] [place] [address] Dr. Alfredo Lizama WBC 8.5 103/ul Normal 4.0-11.0 [facility] Comment on above: Performed By: #### U MICRO, ERUR #### [facility] [address] [address] [address] Alfredo Lizama ER URINE PROFILEon 3 Bilirubin Ql (U) Negative Normal NEGATIVE [facility] Comment on above: Performed By: #### Jacque ESTRADA UMICRO #### [facility] [address] [place] [address] Dr. Alfredo Lizama Clarity (U) CLOUDY Abnormal CLEAR [facility] Comment on above: Performed By: #### Jacque ESTRADA UMICRO #### [facility] [address] [place] [address] Dr. Alfredo Lizama Color (U) YELLOW Normal YELLOW [facility] Comment on above: Performed By: #### Jacque ESTRADA UMICRO #### [facility] [address] [place] [address] Dr. Alfredo BESTAHD A micrscopic examina tion will be performed if indicated. Normal [facility] Comment on above: Performed By: #### Jacque ESTRADA UMICRO #### [facility] [address] [place] [address] Dr. Alfredo Lizama Glucose Ql (U) Negative Normal NEGATIVE [facility] Comment on above: Performed By: #### Jacque ESTRADA UMICRO #### [facility] [address] [place] [address] Dr. Alfredo Lizama Hemoglobin Ql (U) MODERATE Abnormal NEGATIVE [facility] Comment on above: Performed By: #### Jacque ESTRADA UMICRO #### [facility] [address] [place] [address] Dr. Alfredo Lizama Ketones Ql (U) TRACE Abnormal NEGATIVE [facility] Comment on above: Performed By: #### Jacque ESTRADA UMICRO #### [facility] Laboratory [address] [place] [address] Dr. Alfredo Lizama LEUKOCYTES SMALL Abnormal NEGATIVE [facility] Comment on above: Performed By: #### Jacque ESTRADA UMICRO #### [facility] [address] [place] [address] Dr. Alfredo Lizama Nitrite Ql (U) Negative Normal NEGATIVE [facility] Comment on above: Performed By: #### E RUR UMICRO #### [facility] [address] [place] [address] Dr. Alfredo Lizama pH (U) 8.0 [pH] Normal 5-9 [facility] Comment on above: Performed By: #### E SEAN UMICRO #### [facility] [address] [place] [address] Dr. Alfredo Lizama Protein (U) [Mass/Vol] 100 mg/dL Abnormal NEGAT MAGDA/ TRACE [facility] Comment on above: Performed By: #### E RUEsther UMICRO #### [facility] [address] [place] [address] Dr. Alfredo Lizama SPEC GRAVITY 1.015 Normal 1.005-<=1. 025 [facility] Comment on above: Performed By: #### E SEAN UMICRO #### [facility] [address] [place] [address] Dr. Alfredo Lizama UR MICRO IND INDICATED Normal [facility] Comment on above: Performed By: #### E RUEsther UMICRO #### [facility] [address] [place] [address] Dr. Alfredo Lizama Urobilinogen Qn (U) 1.0 {Tesha'U}/dL Normal 0.2 - 1. 0 [facility] Comment on above: Performed By: #### Jacque ESTRADA UMICRO #### [facility] [address] [place] [address] Dr. Alfredo Lizama PROF CHEM 8 (BAS METB)on Anion gap [Moles/Vol] 8.4 mmol/L Normal [facility] Comment on above: Performed By: #### U MICRO, ERUR #### [facility] [address] [place] [address] Dr. Alfredo Lizama Calcium [Mass/Vol] 8.7 mg/dL Normal 8.5-10.1 [facility] Comment on above: Performed By: #### U MICRO, ERUR #### [facility] [address] [place] [address] Dr. Alfredo Lizama Chloride [Moles/Vol] 107 mmol/L Normal 98-107 [facility] Comment on above: Performed By: #### U MICRO, ERUR #### [facility] [address] [address] [address] Alfredo Lizama CO2 [Moles/Vol] 28.3 mmol/L Normal 21.0-32.0 [facility] Comment on above: Performed By: #### U MICRO, ERUR #### [facility] [address] [address] [address] Alfredo Lizama Creatinine [Mass/Vol] 0.70 mg/dL Normal 0.55-1.02 [facility] Comment on above: Performed By: #### U MICRO, ERUR #### [facility] [address] [place] [address] Dr. Alfredo Lizama EGFR-AF KOSOVAN >60 Normal >=60 [facility] Comment on above: Performed By: #### U MICRO, ERUR #### [facility] [address] [place] [address] Dr. Alfredo Lizama EGFR-NON AF KOSOVAN >60 Normal >=60 [facility] Comment on above: Performed By: #### U MICRO, ERUR #### [facility] [address] [place] [address] Dr. Alfredo Lizama Glucose [Mass/Vol] 97 mg/dL Normal 74-106 [facility] Comment on above: Performed By: #### U MICRO, ERUR #### [facility] [address] [place] [address] Dr. Alfredo Lizama Potassium [Moles/Vol] 3.7 mmol/L Normal 3.5-5.1 [facility] Comment on above: Performed By: #### U MICRO, ERUR #### [facility] [address] [place] [address] Dr. Alfredo Lizama Sodium [Moles/Vol] 140 mmol/L Normal 136-145 [facility] Comment on above: Performed By: #### U MICRO, ERUR #### [facility] [address] [place] [address] Dr. Alfredo Lizama Urea nitrogen [Mass/Vol] 7.0 mg/dL Normal 7.0-18.0 [facility] Comment on above: Performed By: #### U MICRO, ERUR #### [facility] [address] [place] [address] Dr. Alfredo Lizama Urea nitrogen/Creatinine [Mass ratio] 10.0 mg/mg Normal [facility] Comment on above: Performed By: #### U MICRO, ERUR #### [facility] [address] [place] [address] Dr. Alfredo Lizama URINE MICROSCOPIC ONLYon AMORPHOUS CRYSTALS FEW Normal [facility] Comment on above: Performed By: #### E RUR, UMICRO #### [facility] [address] [place] [address] Dr. Alfredo Lizama BACTERIA LARGE Abnormal NONE SEEN [facility] Comment on above: Performed By: #### E RUR, UMICRO #### [facility] [address] [place] [address] Dr. Alfredo Lizama Bacteria identified Cx Nom (U) INDICATED Normal [facility] Comment on above: Performed By: #### E RUR, UMICRO #### [facility] [address] [place] [address] Dr. Alfredo Lizama CAST NONE SEEN Normal NONE SEEN [facility] Comment on above: Performed By: #### E RUR, UMICRO #### [facility] [address] [place] [address] Dr. Alfredo Lizama Crystals LM Nom (Urine sed) SEEN Abnormal NONE SEEN [facility] Comment on above: Performed By: #### E RUR, UMICRO #### [facility] [address] [place] [address] Dr. Alfredo Lizama Epithelial cells LM Ql (Urine sed) RARE Normal NONE SEEN /RARE [facility] Comment on above: Performed By: #### E RUR, UMICRO #### [facility] [address] [place] [address] Dr. Alfredo Lizama MUCOUS NONE SEEN Normal NONE SEEN [facility] Comment on above: Performed By: #### E RUR, UMICRO #### [facility] [address] [address] [address] Alfredo Lizama RBC 2-5 Abnormal 0-2 [facility] Comment on above: Performed By: #### E RUR UMICRO #### [facility] [address] [address] [address] Alfredo Lizama TRIPLE PHOS CRYSTALS FEW Normal [facility] Comment on above: Performed By: #### E RUEsther UMICRO #### [facility] [address] [place] [address] Dr. Alfredo Lizama WBC 75-100 Abnormal NONE SEEN [facility] Comment on above: Performed By: #### E SEAN UMMISAELRO #### [facility] [address] [place] [address] Dr. Alfredo Lizama CULTURE URINEon 12-25-2022 CULTURE [...] Trimethoprim/Sulfamethoxa zole <=20 S F Normal [facility] Comment on above: Performed By: #### U MICRO, ERUR #### [facility] [address] [address] [address] Alfredo Lizama AMYLASEon 11-09-2022 Amylase [Catalytic activity/Vol] 14 U/L Critically low 25-115 [facility] Comment on above: Performed By: #### U MICRO, ERUR #### [facility] [address] [place] [address] Dr. Alfredo Lizama CBC AUTO DIFFon 11-09-2022 BASO # 0.1 103/ul Normal 0.0-0.1 [facility] Comment on above: Performed By: #### U MICRO, ERUR #### [facility] [address] [place] [address] Dr. Alfredo Lizama Basophils/100 WBC (Bld) 0.8 % Normal 0.2-2.0 [facility] Comment on above: Performed By: #### U MICRO, ERUR #### [facility] [address] [place] [address] Dr. Alfredo Lizama EO # 0.2 103/ul Normal 0.0-0.7 [facility] Comment on above: Performed By: #### U MICRO, ERUR #### [facility] [address] [place] [address] Dr. Alfredo Lizama Eosinophils/100 WBC (Bld) 2.5 % Normal 0.9-7.0 [facility] Comment on above: Performed By: #### U MICRO, ERUR #### [facility] [address] [place] [address] Dr. Alfredo Lizama Erythrocyte distribution width (RBC) [Ratio] 12.7 % Normal 11.0-15.0 [facility] Comment on above: Performed By: #### U MICRO, ERUR #### [facility] [address] [place] [address] Dr. Alfredo Lizama Hematocrit (Bld) [Volume fraction] 46.3 % Normal 36.0-48.0 [facility] Comment on above: Performed By: #### U MICRO, ERUR #### [facility] [address] [place] [address] Dr. Alfredo Lizama Hemoglobin (Bld) [Mass/Vol] 15.9 g/dL Normal 12.0-16.0 [facility] Comment on above: Performed By: #### U MICRO, ERUR #### [facility] [address] [place] [address] Dr. Alfredo Lizama IG # 0.02 10e3/ul Normal 0.00-0.03 [facility] Comment on above: Performed By: #### U MICRO, ERUR #### [facility] [address] [place] [address] Dr. Alfredo Lizama IG % 0.2 % Normal 0.0-0.5 [facility] Comment on above: Performed By: #### U MICRO, ERUR #### [facility] [address] [place] [address] Dr. Alfredo Lizama LYMPH # 2.6 103/ul Normal 1.2-3.8 [facility] Comment on above: Performed By: #### U MICRO, ERUR #### [facility] [address] [place] [address] Dr. Alfredo Lizama Lymphocytes/100 WBC (Bld) 31.3 % Normal 20.5-60.0 [facility] Comment on above: Performed By: #### U MICRO, ERUR #### [facility] [address] [place] [address] Dr. Alfredo Lizama MANUAL DIFF REQ NO Normal [facility] Comment on above: Performed By: #### U MICRO, ERUR #### [facility] [address] [place] [address] Dr. Alfredo Lizama MCH (RBC) [Entitic mass] 29.3 pg Normal 26.7-34.0 [facility] Comment on above: Performed By: #### U MICRO, ERUR #### [facility] [address] [place] [address] Dr. Alfredo Lizama MCHC (RBC) [Mass/Vol] 34.3 g/dL Normal 29.9-35.2 [facility] Comment on above: Performed By: #### U MICRO, ERUR #### [facility] [address] [place] [address] Dr. Alfredo Lizama MCV (RBC) [Entitic vol] 85.4 fL Normal 81.0-99.0 [facility] Comment on above: Performed By: #### U MICRO, ERUR #### [facility] [address] [place] [address] Dr. Alfredo Lizama MONO # 0.6 103/ul Normal 0.3-0.8 [facility] Comment on above: Performed By: #### U MICRO, ERUR #### [facility] [address] [place] [address] Dr. Alfredo Lizama Monocytes/100 WBC (Bld) 6.6 % Normal 1.7-12.0 [facility] Comment on above: Performed By: #### U MICRO, ERUR #### [facility] [address] [place] [address] Dr. Alfredo Lizama NEUT # 4.9 103/ul Normal 1.4-6.5 [facility] Comment on above: Performed By: #### U MICRO, ERUR #### [facility] [address] [place] [address] Dr. Alfredo Lizama Neutrophils/100 WBC (Bld) 58.6 % Normal 43.0-75.0 [facility] Comment on above: Performed By: #### U MICRO, ERUR #### [facility] [address] [place] [address] Dr. Alfredo Lizama Platelet mean volume (Bld) [Entitic vol] 9.5 fL Normal 9.5-13.5 [facility] Comment on above: Performed By: #### U MICRO, ERUR #### [facility] [address] [place] [address] Dr. Alfredo Lizama PLT 273 103/ul Normal 150-450 [facility] Comment on above: Performed By: #### U MICRO, ERUR #### [facility] [address] [place] [address] Dr. Alfredo Lizama RBC 5.42 106/ul Critically high 4.20-5.40 [facility] Comment on above: Performed By: #### U MICRO, ERUR #### [facility] [address] [place] [address] Dr. Alfredo Lizmaa WBC 8.4 103/ul Normal 4.0-11.0 [facility] Comment on above: Performed By: #### U MICRO, ERUR #### [facility] [address] [place] [address] Dr. Alfredo Lizama CULTURE URINEon 11-09-2022 CULTURE URINE Culture Observations : MODERATE GROWTH OF MIXED GENITAL ROSANNA. NO POTENTIAL PATHOGENS SEEN. Normal [facility] Comment on above: Performed By: #### U MICRO, ERUR #### [facility] [address] [address] [address] Alfredo Lizama ER URINE PROFILEon 3 Bilirubin Ql (U) Negative Normal NEGATIVE [facility] Comment on above: Performed By: #### U MICRO, ERUR #### [facility] [address] [place] [address] Dr. Alfredo Lizama Clarity (U) CLEAR Normal CLEAR [facility] Comment on above: Performed By: #### U MICRO, ERUR #### [facility] [address] [address] [address] Alfredo Lizama Color (U) LT. YELLOW Normal YELLOW [facility] Comment on above: Performed By: #### U MICRO, ERUR #### [facility] [address] [place] [address] Dr. Alfredo Lizama ERUBYROND A micrscopic examina tion will be performed if indicated. Normal [facility] Comment on above: Performed By: #### U MICRO, ERUR #### [facility] [address] [place] [address] Dr. Alfredo Lizama Glucose Ql (U) Negative Normal NEGATIVE [facility] Comment on above: Performed By: #### U MICRO, ERUR #### [facility] [address] [place] [address] Dr. Alfredo Lizama Hemoglobin Ql (U) MODERATE Abnormal NEGATIVE [facility] Comment on above: Performed By: #### U MICRO, ERUR #### [facility] [address] [address] [address] Alfredo Lizama Ketones Ql (U) Negative Normal NEGATIVE [facility] Comment on above: Performed By: #### U MICRO, ERUR #### [facility] [address] [address] [address] Alfredo Lizama LEUKOCYTES LARGE Abnormal NEGATIVE [facility] Comment on above: Performed By: #### U MICRO, ERUR #### [facility] [address] [place] [address] Dr. Alfredo Lizama Nitrite Ql (U) Negative Normal NEGATIVE [facility] Comment on above: Performed By: #### U MICRO, ERUR #### [facility] [address] [place] [address] Dr. Alfredo Lizama pH (U) 7.0 [pH] Normal 5-9 [facility] Comment on above: Performed By: #### U MICRO, ERUR #### [facility] [address] [place] [address] Dr. Alfredo Lizama SPEC GRAVITY 1.015 Normal 1.005-<=1. 025 [facility] Comment on above: Performed By: #### U MICRO, ERUR #### [facility] [address] [place] [address] Dr. Alfredo Lizama UA PROTEIN Negative Normal NEGATIVE/ TRACE [facility] Comment on above: Performed By: #### U MICRO, ERUR #### [facility] [address] [place] [address] Dr. Alfredo Lizama UR MICRO IND INDICATED Normal [facility] Comment on above: Performed By: #### U MICRO, ERUR #### [facility] [address] [place] [address] Dr. Alfredo Lizama Urobilinogen Qn (U) 0.2 {Tesha'U}/dL Normal 0.2 - 1. 0 [facility] Comment on above: Performed By: #### U MICRO, ERUR #### [facility] [address] [place] [address] Dr. Alfredo Lizama LIPASEon 11-09-2022 Lipase [Catalytic activity/Vol] 34.0 U/L Critically low 73.0-393.0 [facility] Comment on above: Performed By: #### U MICRO, ERUR #### [facility] [address] [place] [address] Dr. Alfredo Lizama PROF 14(COMP METB)on 023 Albumin [Mass/Vol] 4.0 g/dL Normal 3.4-5.0 [facility] Comment on above: Performed By: #### U MICRO, ERUR #### [facility] [address] [place] [address] Dr. Alfredo Lizama Albumin/Globulin [Mass ratio] 1.0 {ratio} Normal [facility] Comment on above: Performed By: #### U MICRO, ERUR #### [facility] [address] [address] [address] Alfredo Lizama ALP [Catalytic activity/Vol] 206 U/L Critically high 46-116 [facility] Comment on above: Performed By: #### U MICRO, ERUR #### [facility] [address] [address] [address] Alfredo Lizama ALT [Catalytic activity/Vol] 53 U/L Normal 14-59 [facility] Comment on above: Performed By: #### U MICRO, ERUR #### [facility] [address] [address] [address] Alfredo Lizama Anion gap [Moles/Vol] 14.5 mmol/L Normal [facility] Comment on above: Performed By: #### U MICRO, ERUR #### [facility] [address] [address] [address] Alfredo Lizama AST [Catalytic activity/Vol] 55 U/L Critically high 15-37 [facility] Comment on above: Performed By: #### U MICRO, ERUR #### [facility] [address] [address] [address] Alfredo Lizama Bilirubin [Mass/Vol] 0.7 mg/dL Normal 0.2-1.0 [facility] Comment on above: Performed By: #### U MICRO, ERUR #### [facility] [address] [address] [address] Alfredo Lizama Calcium [Mass/Vol] 9.0 mg/dL Normal 8.5-10.1 [facility] Comment on above: Performed By: #### U MICRO, ERUR #### [facility] [address] [address] [address] Alfredo Lizama Chloride [Moles/Vol] 100 mmol/L Normal 98-107 [facility] Comment on above: Performed By: #### U MICRO, ERUR #### [facility] [address] [address] [address] Alfredo Lizama CO2 [Moles/Vol] 28.3 mmol/L Normal 21.0-32.0 [facility] Comment on above: Performed By: #### U MICRO, ERUR #### [facility] [address] [address] [address] Alfredo Lizama Creatinine [Mass/Vol] 0.65 mg/dL Normal 0.55-1.02 [facility] Comment on above: Performed By: #### U MICRO, ERUR #### [facility] [address] [address] [address] Alfredo Lizama EGFR-AF KOSOVAN >60 Normal >=60 [facility] Comment on above: Performed By: #### U MICRO, ERUR #### [facility] [address] [place] [address] Dr. Alfredo Lizama EGFR-NON AF KOSOVAN >60 Normal >=60 [facility] Comment on above: Performed By: #### U MICRO, ERUR #### [facility] [address] [address] [address] Alfredo Lizama Globulin (S) [Mass/Vol] 3.9 g/dL Normal [facility] Comment on above: Performed By: #### U MICRO, ERUR #### [facility] [address] [address] [address] Alfredo Lizama Glucose [Mass/Vol] 134 mg/dL Critically high 74-106 [facility] Comment on above: Performed By: #### U MICRO, ERUR #### [facility] [address] [address] [address] Alfredo Lizama Potassium [Moles/Vol] 3.8 mmol/L Normal 3.5-5.1 [facility] Comment on above: Performed By: #### U MICRO, ERUR #### [facility] [address] [address] [address] Alfredo Lizama Protein [Mass/Vol] 7.9 g/dL Normal 6.4-8.2 [facility] Comment on above: Performed By: #### U MICRO, ERUR #### [facility] [address] [address] [address] Alfredo Lizama Sodium [Moles/Vol] 139 mmol/L Normal 136-145 [facility] Comment on above: Performed By: #### U MICRO, ERUR #### [facility] [address] [place] [address] Dr. Alfredo Lizama Urea nitrogen [Mass/Vol] 7.0 mg/dL Normal 7.0-18.0 [facility] Comment on above: Performed By: #### U MICRO, ERUR #### [facility] [address] [place] [address] Dr. Alfredo Lizama Urea nitrogen/Creatinine [Mass ratio] 10.7 mg/mg Normal [facility] Comment on above: Performed By: #### U MICRO, ERUR #### [facility] [address] [place] [address] Dr. Alfredo Lizama URINE MICROSCOPIC ONLYon BACTERIA TRACE Abnormal NONE SEEN [facility] Comment on above: Performed By: #### U MICRO, ERUR #### [facility] [address] [place] [address] Dr. Alfredo Lizama Bacteria identified Cx Nom (U) INDICATED Normal [facility] Comment on above: Performed By: #### U MICRO, ERUR #### [facility] [address] [place] [address] Dr. Alfredo Lizama CAST NONE SEEN Normal NONE SEEN [facility] Comment on above: Performed By: #### U MICRO, ERUR #### [facility] [address] [place] [address] Dr. Alfredo Lizama Crystals LM Nom (Urine sed) NONE SEEN Normal NONE SEEN [facility] Comment on above: Performed By: #### U MICRO, ERUR #### [facility] [address] [place] [address] Dr. Alfredo Lizama Epithelial cells LM Ql (Urine sed) FEW Abnormal NONE SEEN /RARE [facility] Comment on above: Performed By: #### U MICRO, ERUR #### [facility] [address] [place] [address] Dr. Alfredo Lizama MUCOUS NONE SEEN Normal NONE SEEN [facility] Comment on above: Performed By: #### U MICRO, ERUR #### [facility] [address] [address] [address] Alfredo Lizama RBC 20-50 Abnormal 0-2 [facility] Comment on above: Performed By: #### U MICRO, ERUR #### [facility] [address] [address] [address] Alfredo Lziama WBC 20-50 Abnormal NONE SEEN [facility] Comment on above: Performed By: #### U MICRO, ERUR #### [facility] [address] [address] [address] Alfredo Lizama XR ABD FLAT_UPon 11-09-2022 [...] ENRIQUE LOWE Date: 2022-11-09 11:06 Normal [facility] CULTURE URINEon 10-18-2022 CULTURE URINE Isolate [...] Trimethoprim/Sulfamethoxa zole <=10 S F Normal [facility] Comment on above: Performed By: #### U MICRO, ERUR #### [facility] [address] [place] [address] Dr. Alfredo Lizama ER URINE PROFILEon 3 Bilirubin Ql (U) Negative Normal NEGATIVE [facility] Comment on above: Performed By: #### Jacque ESTRADA UMICRO #### [facility] [address] [place] [address] Dr. Alfredo Lizama Clarity (U) CLEAR Normal CLEAR [facility] Comment on above: Performed By: #### Jacque ESTRADA UMICRO #### [facility] [address] [place] [address] Dr. Alfredo Lizama Color (U) YELLOW Normal YELLOW [facility] Comment on above: Performed By: #### Jacque RUEsther UMICRO #### [facility] [address] [place] [address] Dr. Alfredo RAYMUNDO A micrscopic examina tion will be performed if indicated. Normal [facility] Comment on above: Performed By: #### Jacque ESTRADA UMICRO #### [facility] [address] [place] [address] Dr. Alfredo Lizama Glucose Ql (U) Negative Normal NEGATIVE [facility] Comment on above: Performed By: #### Jacque ESTRADA UMICRO #### [facility] [address] [place] [address] Dr. Alfredo Lizama Hemoglobin Ql (U) LARGE Abnormal NEGATIVE [facility] Comment on above: Performed By: #### Jacque ESTRADA UMICRO #### [facility] [address] [place] [address] Dr. Alfredo Lizama Ketones Ql (U) Negative Normal NEGATIVE [facility] Comment on above: Performed By: #### Jacque ESTRADA UMICRO #### [facility] [address] [place] [address] Dr. Alfredo Lizama LEUKOCYTES LARGE Abnormal NEGATIVE [facility] Comment on above: Performed By: #### CHINMAY CHAVESRO #### [facility] [address] [place] [address] Dr. Alfredo Lizama Nitrite Ql (U) Positive Abnormal NEGATIVE [facility] Comment on above: Performed By: #### CHINMAY CHAVESRO #### [facility] [address] [place] [address] Dr. Alfredo Lizama pH (U) 6.5 [pH] Normal 5-9 [facility] Comment on above: Performed By: #### CHINMAY CHAVESRO #### [facility] [address] [place] [address] Dr. Alfredo Lizama Protein (U) [Mass/Vol] 100 mg/dL Abnormal NEGAT MAGDA/ TRACE [facility] Comment on above: Performed By: #### CHINMAY CHAVESRO #### [facility] [address] [place] [address] Dr. Alfredo Lizama SPEC GRAVITY 1.010 Normal 1.005-<=1. 025 [facility] Comment on above: Performed By: #### CHINMAY CHAVESRO #### [facility] [address] [place] [address] Dr. Alfredo Lizama UR MICRO IND INDICATED Normal [facility] Comment on above: Performed By: #### CHINMAY CHAVESRO #### [facility] [address] [place] [address] Dr. Alfredo Lizama Urobilinogen Qn (U) 1.0 {Tesha'U}/dL Normal 0.2 - 1. 0 [facility] Comment on above: Performed By: #### CHINMAY CHAVESRO #### [facility] [address] [place] [address] Dr. Alfredo Lizama URINE MICROSCOPIC ONLYon BACTERIA MODERATE Abnormal NONE SEEN [facility] Comment on above: Performed By: #### U MICRO, ERUR #### [facility] [address] [place] [address] Dr. Alfredo Lizama Bacteria identified Cx Nom (U) INDICATED Normal [facility] Comment on above: Performed By: #### U MICRO, ERUR #### [facility] [address] [place] [address] Dr. Alfredo Lizama CA OX CRYSTALS RARE Normal [facility] Comment on above: Performed By: #### U MICRO, ERUR #### [facility] [address] [place] [address] Dr. Alfredo Lizama CAST NONE SEEN Normal NONE SEEN [facility] Comment on above: Performed By: #### U MICRO, ERUR #### [facility] [address] [place] [address] Dr. Alfredo Lizama Crystals LM Nom (Urine sed) SEEN Abnormal NONE SEEN [facility] Comment on above: Performed By: #### U MICRO, ERUR #### [facility] [address] [place] [address] Dr. Alfredo Lizama Epithelial cells LM Ql (Urine sed) MODERATE Abnormal NONE SEEN /RARE [facility] Comment on above: Performed By: #### U MICRO, ERUR #### [facility] [address] [place] [address] Dr. Alfredo Lizama MUCOUS TRACE Abnormal NONE SEEN [facility] Comment on above: Performed By: #### U MICRO, ERUR #### [facility] [address] [place] [address] Dr. Alfredo Lizama RBC 20-50 Abnormal 0-2 [facility] Comment on above: Performed By: #### U MICRO, ERUR #### [facility] [address] [place] [address] Dr. Alfredo Lizama WBC 50-75 Abnormal NONE SEEN [facility] Comment on above: Performed By: #### U MICRO, ERUR #### [facility] [address] [place] [address] Dr. Alfredo Lizama Covid-19 PCR ([facility])on 08-06 SARS-CoV-2 (COVID-19) RNA ADRIÁN+probe Ql (Unsp spec) Not detected Normal NOT DETECTED [facility] Comment on above: Result Comment: When [...] for this test is supported by the [employer] of Health and Human Service's declaration that [...] Performed By: #### U MICRO, ERUR #### [facility] [address] [place] [address] Dr. Alfredo Lizama CBC AUTO DIFFon 08-24-2022 BASO # 0.1 103/ul Normal 0.0-0.1 [facility] Comment on above: Performed By: #### C BC #### [facility] [address] [place] [address] Dr. Alfredo Lizama Basophils/100 WBC (Bld) 0.8 % Normal 0.2-2.0 [facility] Comment on above: Performed By: #### C BC #### [facility] [address] [place] [address] Dr. Alfredo Lizama EO # 0.3 103/ul Normal 0.0-0.7 [facility] Comment on above: Performed By: #### C BC #### [facility] [address] [place] [address] Dr. Alfredo Lizama Eosinophils/100 WBC (Bld) 3.1 % Normal 0.9-7.0 [facility] Comment on above: Performed By: #### C BC #### [facility] [address] [place] [address] Dr. Alfredo Lizama Erythrocyte distribution width (RBC) [Ratio] 13.4 % Normal 11.0-15.0 [facility] Comment on above: Performed By: #### C BC #### [facility] [address] [address] [address] Alfredo Lizama Hematocrit (Bld) [Volume fraction] 47.2 % Normal 36.0-48.0 [facility] Comment on above: Performed By: #### C BC #### [facility] [address] [address] [address] Alfredo Lizama Hemoglobin (Bld) [Mass/Vol] 15.6 g/dL Normal 12.0-16.0 [facility] Comment on above: Performed By: #### C BC #### [facility] [address] [address] [address] Alfredo Lizama IG # 0.02 10e3/ul Normal 0.00-0.03 [facility] Comment on above: Performed By: #### C BC #### [facility] [address] [place] [address] Dr. Alfredo Lizama IG % 0.2 % Normal 0.0-0.5 [facility] Comment on above: Performed By: #### C BC #### [facility] [address] [place] [address] Dr. Alfredo Lizama LYMPH # 4.4 103/ul Critically high 1.2-3.8 [facility] Comment on above: Performed By: #### C BC #### [facility] [address] [place] [address] Dr. Alfredo Lizama Lymphocytes/100 WBC (Bld) 42.3 % Normal 20.5-60.0 [facility] Comment on above: Performed By: #### C BC #### [facility] [address] [place] [address] Dr. Alfredo Lizama MANUAL DIFF REQ NO Normal [facility] Comment on above: Performed By: #### C BC #### [facility] [address] [place] [address] Dr. Alfredo Lizama MCH (RBC) [Entitic mass] 28.8 pg Normal 26.7-34.0 [facility] Comment on above: Performed By: #### C BC #### [facility] [address] [address] [address] Alfredo Lizama MCHC (RBC) [Mass/Vol] 33.1 g/dL Normal 29.9-35.2 [facility] Comment on above: Performed By: #### C BC #### [facility] [address] [address] [address] Alfredo Lizama MCV (RBC) [Entitic vol] 87.2 fL Normal 81.0-99.0 [facility] Comment on above: Performed By: #### C BC #### [facility] [address] [address] [address] Alfredo Lizama MONO # 0.6 103/ul Normal 0.3-0.8 [facility] Comment on above: Performed By: #### C BC #### [facility] [address] [place] [address] Dr. Alfredo Lizama Monocytes/100 WBC (Bld) 5.3 % Normal 1.7-12.0 [facility] Comment on above: Performed By: #### C BC #### [facility] [address] [place] [address] Dr. Alfredo Lizama NEUT # 5.0 103/ul Normal 1.4-6.5 [facility] Comment on above: Performed By: #### C BC #### [facility] [address] [place] [address] Dr. Alfredo Lizama Neutrophils/100 WBC (Bld) 48.3 % Normal 43.0-75.0 [facility] Comment on above: Performed By: #### C BC #### [facility] [address] [place] [address] Dr. Alfredo Lizama Platelet mean volume (Bld) [Entitic vol] 9.9 fL Normal 9.5-13.5 [facility] Comment on above: Performed By: #### C BC #### [facility] [address] [place] [address] Dr. Alfredo Lizama PLT 298 103/ul Normal 150-450 [facility] Comment on above: Performed By: #### C BC #### [facility] [address] [place] [address] Dr. Alfredo Lizama RBC 5.41 106/ul Critically high 4.20-5.40 [facility] Comment on above: Performed By: #### C BC #### [facility] [address] [place] [address] Dr. Alfredo Lizama WBC 10.3 103/ul Normal 4.0-11.0 [facility] Comment on above: Performed By: #### C BC #### [facility] [address] [place] [address] Dr. Alfredo Lizama PROF CHEM 8 (BAS METB)on Anion gap [Moles/Vol] 14.3 mmol/L Normal [facility] Comment on above: Performed By: #### U MICRO, ERUR #### [facility] [address] [place] [address] Dr. Alfredo Lizama Calcium [Mass/Vol] 9.1 mg/dL Normal 8.5-10.1 [facility] Comment on above: Performed By: #### U MICRO, ERUR #### [facility] [address] [place] [address] Dr. Alfredo Lizama Chloride [Moles/Vol] 99 mmol/L Normal 98-107 [facility] Comment on above: Performed By: #### U MICRO, ERUR #### [facility] [address] [place] [address] Dr. Alfredo Lizama CO2 [Moles/Vol] 29.0 mmol/L Normal 21.0-32.0 [facility] Comment on above: Performed By: #### U MICRO, ERUR #### [facility] [address] [place] [address] Dr. Alfredo Lizama Creatinine [Mass/Vol] 0.70 mg/dL Normal 0.55-1.02 [facility] Comment on above: Performed By: #### U MICRO, ERUR #### [facility] [address] [place] [address] Dr. Alfredo Lizama EGFR-AF KOSOVAN >60 Normal >=60 [facility] Comment on above: Performed By: #### U MICRO, ERUR #### [facility] [address] [address] [address] Alfredo Lizama EGFR-NON AF KOSOVAN >60 Normal >=60 [facility] Comment on above: Performed By: #### U MICRO, ERUR #### [facility] [address] [address] [address] Alfredo Lizama Glucose [Mass/Vol] 121 mg/dL Critically high 74-106 T [facility] Comment on above: Performed By: #### U MICRO, ERUR #### [facility] [address] [address] [address] Alfredo Lizama Potassium [Moles/Vol] 3.3 mmol/L Critically low 3.5-5.1 [facility] Comment on above: Performed By: #### U MICRO, ERUR #### [facility] [address] [address] [address] Alfredo Lizama Sodium [Moles/Vol] 139 mmol/L Normal 136-145 [facility] Comment on above: Performed By: #### U MICRO, ERUR #### [facility] [address] [address] [address] Alfredo Lizama Urea nitrogen [Mass/Vol] 5.0 mg/dL Critically low 7.0-18. 0 [facility] Comment on above: Performed By: #### U MICRO, ERUR #### [facility] [address] [address] [address] Alfredo Lizama Urea nitrogen/Creatinine [Mass ratio] 7.1 mg/mg Normal [facility] Comment on above: Performed By: #### U MICRO, ERUR #### [facility] [address] [address] [address] Alfredo Lizama PROTIMEon 08-24-2022 INR Coag (PPP) [Relative time] 0.99 {INR} Normal [facility] Comment on above: Performed By: #### P T, PTT #### [facility] [address] [address] [address] Alfredo Lizama INR GUIDELINES SEE BELOW Normal [facility] Comment on above: Result Comment: MARY JO RED INR: 2.0 - 3.0 CONDITIONS NOT LISTED BELOW 2.5 - 3.5 FOR PROSTHETIC HEART VALVE REPLACEMENT 2.5 - 3.5 RECURRENT THROMBOSIS Performed By: #### P T, PTT #### [facility] [address] [place], [place] [address] Dr. Alfredo Lizama PT Coag (PPP) [Time] 10.7 s Normal 9.0-11.6 [facility] Comment on above: Performed By: #### P T, PTT #### [facility] [address] [place], [place] [address] Dr. Alfredo Lizama PTTon 08-24-2022 aPTT Coag (Bld) [Time] 31.7 s Normal 22.3-36.2 [facility] Comment on above: Performed By: #### P T, PTT #### [facility] [address] [address] [address] Alfredo Lizama BN SACRUM/COCCYX, MIN 2 [...] 09/20/2019. Thoracolumbar spine radiographs 09/08/2021. ACCESSION NUMBER(S): [id number]; [id number]; [id number] ORDERING CLINICIAN: CANDICE PEREZ FINDINGS: Three views [...] stated. Electronically signed by: GOMEZ JAMA MD [facility] BN SPINE, LUMBOSACRAL; 2 [...] 09/20/2019. Thoracolumbar spine radiographs 09/08/2021. ACCESSION NUMBER(S): [id number]; [id number]; [id number] ORDERING CLINICIAN: CANDICE PEREZ FINDINGS: Three views [...] Electronically signed by: GOMEZ JAMA MD Normal [facility] BN SPINE, THORACIC, 3 VIEWSo [...] 09/20/2019. Thoracolumbar spine radiographs 09/08/2021. ACCESSION NUMBER(S): [id number]; [id number]; [id number] ORDERING CLINICIAN: CANDICE PEREZ FINDINGS: Three views [...] Electronically signed by: GOMEZ JAMA MD Normal [facility] CBC AND DIFFERENTIALon 06-07 % AUTOMATED IMMATURE GRAN 0.2 % Normal 0.0 - 0.9 [facility] Comment on above: Result Comment: Jaleesa ture Granulocyte Count (IG) includes promyelocytes, myelocytes and metamyelocytes but does not include bands. Percent differential counts (%) should be interpreted in the context of the absolute cell counts (cells/L). Performed By: #### R ENAL #### [facility] [address] [place] [address] Basophils (Bld) [#/Vol] 0.09 10*3/uL Normal 0.00 - 0.10 [facility] Comment on above: Performed By: #### R ENAL #### [facility] [address] [place] [address] Basophils/100 WBC (Bld) 1.0 % Normal 0.0 - 2.0 [facility] Comment on above: Performed By: #### R ENAL #### [facility] [address] [place] [address] Eosinophils (Bld) [#/Vol] 0.24 10*3/uL Normal 0.00 - 0.70 [facility] Comment on above: Performed By: #### R ENAL #### [facility] [address] [place] [address] Eosinophils/100 WBC (Bld) 2.6 % Normal 0.0 - 6.0 [facility] Comment on above: Performed By: #### R ENAL #### [facility] [address] [place] [address] Erythrocyte distribution width (RBC) [Ratio] 12.9 % Normal 11.5 - 14.5 [facility] Comment on above: Performed By: #### R ENAL #### [facility] [address] [place] [address] Hematocrit (Bld) [Volume fraction] 48.4 % High 36.0 - 46.0 [facility] Comment on above: Performed By: #### R ENAL #### [facility] [address] [place] [address] Hemoglobin (Bld) [Mass/Vol] 17.1 g/dL High 12.0 - 16.0 [facility] Comment on above: Performed By: #### R ENAL #### [facility] [address] [place] [address] Lymphocytes (Bld) [#/Vol] 2.93 10*3/uL Normal 1.20 - 4.80 [facility] Comment on above: Performed By: #### R ENAL #### [facility] [address] [place] [address] Lymphocytes/100 WBC (Bld) 31.9 % Normal 13.0 - 44.0 [facility] Comment on above: Performed By: #### R ENAL #### [facility] [address] [place] [address] MCHC (RBC) [Mass/Vol] 35.3 g/dL Normal 32.0 - 36.0 [facility] Comment on above: Performed By: #### R ENAL #### [facility] [address] [place] [address] MCV (RBC) [Entitic vol] 85 fL Normal 80 - 100 [facility] Comment on above: Performed By: #### R ENAL #### [facility] [address] [place] [address] Monocytes (Bld) [#/Vol] 0.36 10*3/uL Normal 0.10 - 1.00 [facility] Comment on above: Performed By: #### R ENAL #### [facility] [address] [place] [address] Monocytes/100 WBC (Bld) 3.9 % Normal 2.0 - 10.0 [facility] Comment on above: Performed By: #### R ENAL #### [facility] [address] [place] [address] Neutrophils (Bld) [#/Vol] 5.54 10*3/uL Normal 1.20 - 7.70 [facility] Comment on above: Performed By: #### R ENAL #### [facility] [address] [place] [address] Neutrophils/100 WBC (Bld) 60.4 % Normal 40.0 - 80.0 [facility] Comment on above: Performed By: #### R ENAL #### [facility] [address] [place] [address] NUCLEATED RBC 0.0 /100 WBC Normal 0.0-0.0 [facility] Comment on above: Performed By: #### R ENAL #### [facility] [address] [place] [address] Platelets (Bld) [#/Vol] 365 10*3/uL Normal 150 - 450 [facility] Comment on above: Performed By: #### R ENAL #### [facility] [address] [place] [address] RBC 5.69 x10E12/L High 4.00 - 5.20 [facility] Comment on above: Performed By: #### R ENAL #### [facility] [address] [place] [address] WBC (Bld) [#/Vol] 9.2 10*3/uL Normal 4.4 - 11.3 [facility] Comment on above: Performed By: #### R ENAL #### [facility] [address] [place] [address] COMPREHENSIVE PANELon 2021 Albumin [Mass/Vol] 4.6 g/dL Normal 3.4 - 5.0 [facility] Comment on above: Performed By: #### R ENAL #### [facility] [address] [place] [address] ALP [Catalytic activity/Vol] 192 U/L High 33 - 110 [facility] Comment on above: Performed By: #### R ENAL #### [facility] [address] [place] [address] ALT [Catalytic activity/Vol] 33 U/L Normal 7 - 45 [facility] Comment on above: Result Comment: Melly ents treated with Sulfasalazine may generate falsely decreased results for ALT. Performed By: #### R ENAL #### [facility] [address] [place] [address] Anion gap [Moles/Vol] 16 mmol/L Normal 10 - 20 [facility] Comment on above: Performed By: #### R ENAL #### [facility] [address] [place] [address] AST [Catalytic activity/Vol] 51 U/L High 9 - 39 [facility] Comment on above: Performed By: #### R ENAL #### [facility] [address] [place] [address] Bilirubin [Mass/Vol] 0.5 mg/dL Normal 0.0 - 1.2 [facility] Comment on above: Performed By: #### R ENAL #### [facility] [address] [place] [address] Calcium [Mass/Vol] 10.3 mg/dL Normal 8.6 - 10.6 [facility] Comment on above: Performed By: #### R ENAL #### [facility] [address] [place] [address] Chloride [Moles/Vol] 101 mmol/L Normal 98 - 107 [facility] Comment on above: Performed By: #### R ENAL #### [facility] [address] [place] [address] Creatinine [Mass/Vol] 0.61 mg/dL Normal 0.50 - 1.05 [facility] Comment on above: Performed By: #### R ENAL #### [facility] [address] [place] [address] eGFR FEMALE >90 Normal >90 [facility] Comment on above: Result Comment: CALC ULATIONS OF ESTIMATED GFR ARE PERFORMED USING THE 2020 CKD-EPI STUDY REFIT EQUATION WITHOUT THE RACE VARIABLE FOR THE IDMS-TRACEABLE CREATININE METHODS. https://jasn.asnjournals.org/content/ASN.037 3710557 Performed By: #### R ENAL #### [facility] [address] [place] [address] Glucose [Mass/Vol] 100 mg/dL High 74 - 99 [facility] Comment on above: Performed By: #### R ENAL #### [facility] [address] [place] [address] HCO3 (Bld) [Moles/Vol] 27 mmol/L Normal 21 - 32 [facility] Comment on above: Performed By: #### R ENAL #### [facility] [address] [place] [address] Potassium [Moles/Vol] 3.8 mmol/L Normal 3.5 - 5.3 [facility] Comment on above: Performed By: #### R ENAL #### [facility] [address] [place] [address] Protein [Mass/Vol] 8.2 g/dL Normal 6.4 - 8.2 [facility] Comment on above: Performed By: #### R ENAL #### [facility] [address] [place] [address] Sodium [Moles/Vol] 140 mmol/L Normal 136 - 145 [facility] Comment on above: Performed By: #### R ENAL #### [facility] [address] [place] [address] Urea nitrogen [Mass/Vol] 5 mg/dL Low 6 - 23 [facility] Comment on above: Performed By: #### R ENAL #### [facility] [address] 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 [id number]-[id number] spinal canal and neural foraminal narrowing described [...] view. Electronically signed by: DO Andrei TOURE [facility] NR CT T-SPINE WO CONTRASTon 06-07-[address] T-SPINE WO CONTRAST Patient Name: MORALES LEE STUDY: CT T-SPINE WO CONTRAST; CT L-SPINE WO CONTRAST 06/06/2022 11:03 pm INDICATION: ok, Lie Flat: Yes COMPARISON: 09/20/2021 MRI and 09/18/2021 CT ACCESSION NUMBER(S): [id number]; [id number] ORDERING CLINICIAN: CANDICE PEREZ TECHNIQUE: Axial CT [...] osseous spinal canal or neural foraminal stenosis. Rvkb-uv-ylpzwdpv spinal canal and neural foraminal narrowing described [...] view. Electronically signed by: DO Andrei TOURE [facility] Provider Note - ED Care [...] Scores Last Updated: 21-Jun-2022 06:18 by Yony Aguirre) Andrei [facility] Provider Note - ED v3on [...] - M21.37 (more content not included)... Normal [facility] Triage - EDon 06-06-2022 Triage [...] BMI (kg/m2): 34.793 Calculated BSA (m2) 1.94 [place] Coma Scale: Best Eye Response: (E4) spontaneous [...] 06-Jun-2022 19:07 by Meghan Chavez (MERA) Normal [facility] CULTURE URINEon 05-10-2022 CULTURE URINE [...] zole <=20 S F [facility] [facility] Comment on above: Performed By: #### U AUTUMN VIDAL #### [facility] [address] [address] [address] Alfredo Lizama CBC AUTO DIFFon 05-07-2022 BASO # 0.1 103/ul Normal 0.0-0.1 [facility] Comment on above: Performed By: #### U NASIR VIDALR #### [facility] [address] [place] [address] Dr. Alfredo Lizama Basophils/100 WBC (Bld) 0.5 % Normal 0.2-2.0 [facility] Comment on above: Performed By: #### U MICRO, ERUR #### [facility] [address] [place] [address] Dr. Alfredo Lizama EO # 0.4 103/ul Normal 0.0-0.7 [facility] Comment on above: Performed By: #### U MICRO, ERUR #### [facility] [address] [place] [address] Dr. Alfredo Lizama Eosinophils/100 WBC (Bld) 3.5 % Normal 0.9-7.0 [facility] Comment on above: Performed By: #### U MICRO, ERUR #### [facility] [address] [place] [address] Dr. Alfredo Lizama Erythrocyte distribution width (RBC) [Ratio] 13.2 % Normal 11.0-15.0 [facility] Comment on above: Performed By: #### U MICRO, ERUR #### [facility] [address] [place] [address] Dr. Alfredo Lizama Hematocrit (Bld) [Volume fraction] 44.0 % Normal 36.0-48.0 [facility] Comment on above: Performed By: #### U MICRO, ERUR #### [facility] [address] [place] [address] Dr. Alfredo Lizama Hemoglobin (Bld) [Mass/Vol] 14.8 g/dL Normal 12.0-16.0 [facility] Comment on above: Performed By: #### U MICRO, ERUR #### [facility] [address] [place] [address] Dr. Alfredo Lizama IG # 0.03 10e3/ul Normal 0.00-0.03 [facility] Comment on above: Performed By: #### U MICRO, ERUR #### [facility] [address] [place] [address] Dr. Alfredo Lizama IG % 0.2 % Normal 0.0-0.5 [facility] Comment on above: Performed By: #### U MICRO, ERUR #### [facility] [address] [place] [address] Dr. Alfredo Lizama LYMPH # 3.8 103/ul Normal 1.2-3.8 [facility] Comment on above: Performed By: #### U MICRO, ERUR #### [facility] [address] [place] [address] Dr. Alfredo Lizama Lymphocytes/100 WBC (Bld) 31.3 % Normal 20.5-60.0 [facility] Comment on above: Performed By: #### U MICRO, ERUR #### [facility] [address] [place] [address] Dr. Alfredo Lizama MANUAL DIFF REQ NO Normal [facility] Comment on above: Performed By: #### U MICRO, ERUR #### [facility] [address] [place] [address] Dr. Alfredo Lizama MCH (RBC) [Entitic mass] 28.8 pg Normal 26.7-34.0 [facility] Comment on above: Performed By: #### U MICRO, ERUR #### [facility] [address] [place] [address] Dr. Alfredo Lizama MCHC (RBC) [Mass/Vol] 33.6 g/dL Normal 29.9-35.2 [facility] Comment on above: Performed By: #### U MICRO, ERUR #### [facility] [address] [place] [address] Dr. Alfredo Lizama MCV (RBC) [Entitic vol] 85.8 fL Normal 81.0-99.0 [facility] Comment on above: Performed By: #### U MICRO, ERUR #### [facility] [address] [place] [address] Dr. Alfredo Lizama MONO # 0.7 103/ul Normal 0.3-0.8 [facility] Comment on above: Performed By: #### U MICRO, ERUR #### [facility] [address] [place] [address] Dr. Alfredo Lizama Monocytes/100 WBC (Bld) 5.8 % Normal 1.7-12.0 [facility] Comment on above: Performed By: #### U MICRO, ERUR #### [facility] [address] [place] [address] Dr. Alfredo Lizama NEUT # 7.1 103/ul Critically high 1.4-6.5 [facility] Comment on above: Performed By: #### U MICRO, ERUR #### [facility] [address] [place] [address] Dr. Alfredo Lizama Neutrophils/100 WBC (Bld) 58.7 % Normal 43.0-75.0 [facility] Comment on above: Performed By: #### U MICRO, ERUR #### [facility] [address] [place] [address] Dr. Alfredo Lizama Platelet mean volume (Bld) [Entitic vol] 9.6 fL Normal 9.5-13.5 [facility] Comment on above: Performed By: #### U MICRO, ERUR #### [facility] [address] [place] [address] Dr. Alfredo Lizama PLT 269 103/ul Normal 150-450 [facility] Comment on above: Performed By: #### U MICRO, ERUR #### [facility] [address] [place] [address] Dr. Alfredo Lizama RBC 5.13 106/ul Normal 4.20-5.40 [facility] Comment on above: Performed By: #### U MICRO, ERUR #### [facility] [address] [place] [address] Dr. Alfredo Lizama WBC 12.2 103/ul Critically high 4.0-11.0 [facility] Comment on above: Performed By: #### U MICRO, ERUR #### [facility] [address] [place] [address] ABD/PELV W CONon [...] KORIN STANLEY Date: 2022-05-07 14:00 Normal [facility] URINE PROFILEon 2 Bilirubin Ql (U) Negative Normal NEGATIVE [facility] Comment on above: Performed By: #### U MICRO, ERUR #### [facility] [address] [address] [address] Alfredo Lizama Clarity (U) CLOUDY Abnormal CLEAR [facility] Comment on above: Performed By: #### U MICRO, ERUR #### [facility] [address] [address] [address] Alfredo Lizama Color (U) LT. YELLOW Normal YELLOW [facility] Comment on above: Performed By: #### U MICRO, ERUR #### [facility] [address] [address] [address] Alfredo Lizama ERUBYROND A micrscopic examina tion will be performed if indicated. Normal [facility] Comment on above: Performed By: #### U MICRO, ERUR #### [facility] [address] [address] [address] Alfredo Lizama Glucose Ql (U) Negative Normal NEGATIVE [facility] Comment on above: Performed By: #### U MICRO, ERUR #### [facility] [address] [address] [address] Alfredo Lizama Hemoglobin Ql (U) LARGE Abnormal NEGATIVE [facility] Comment on above: Performed By: #### U MICRO, ERUR #### [facility] [address] [address] [address] Alfredo Lizama Ketones Ql (U) Negative Normal NEGATIVE [facility] Comment on above: Performed By: #### U MICRO, ERUR #### [facility] [address] [address] [address] Alfredo Lizama LEUKOCYTES MODERATE Abnormal NEGATIVE [facility] Comment on above: Performed By: #### U MICRO, ERUR #### [facility] [address] [place] [address] Dr. Alfredo Lizama Nitrite Ql (U) Positive Abnormal NEGATIVE [facility] Comment on above: Performed By: #### U MICRO, ERUR #### [facility] [address] [place] [address] Dr. Alfredo Lizama pH (U) 8.5 [pH] Normal 5-9 [facility] Comment on above: Performed By: #### U MICRO, ERUR #### [facility] [address] [place] [address] Dr. Alfredo Lizama Protein (U) [Mass/Vol] 100 mg/dL Abnormal NEGAT MAGDA/ TRACE [facility] Comment on above: Performed By: #### U MICRO, ERUR #### [facility] [address] [place] [address] Dr. Alfredo Lizama SPEC GRAVITY 1.015 Normal 1.005-<=1. 025 [facility] Comment on above: Performed By: #### U MICRO, ERUR #### [facility] [address] [place] [address] Dr. Alfredo Lizama UR MICRO IND INDICATED Normal [facility] Comment on above: Performed By: #### U MICRO, ERUR #### [facility] [address] [place] [address] Dr. Alfredo Lizama Urobilinogen Qn (U) 1.0 {Tesha'U}/dL Normal 0.2 - 1. 0 [facility] Comment on above: Performed By: #### U MICRO, ERUR #### [facility] [address] [place] [address] Dr. Alfredo Lizama PROF CHEM 8 (BAS METB)on Anion gap [Moles/Vol] 12.0 mmol/L Normal [facility] Comment on above: Performed By: #### U MICRO, ERUR #### [facility] [address] [place] [address] Dr. Alfredo Lizama Calcium [Mass/Vol] 8.6 mg/dL Normal 8.5-10.1 [facility] Comment on above: Performed By: #### U MICRO, ERUR #### [facility] [address] [place] [address] Dr. Alfredo Lizama Chloride [Moles/Vol] 101 mmol/L Normal 98-107 [facility] Comment on above: Performed By: #### U MICRO, ERUR #### [facility] [address] [address] [address] Alfredo Lizama CO2 [Moles/Vol] 28.0 mmol/L Normal 21.0-32.0 [facility] Comment on above: Performed By: #### U MICRO, ERUR #### [facility] [address] [address] [address] Alfredo Lizama Creatinine [Mass/Vol] 0.77 mg/dL Normal 0.55-1.02 [facility] Comment on above: Performed By: #### U MICRO, ERUR #### [facility] [address] [address] [address] Alfredo Lizama EGFR-AF KOSOVAN >60 Normal >=60 [facility] Comment on above: Performed By: #### U MICRO, ERUR #### [facility] [address] [place] [address] Dr. Alfredo Lizama EGFR-NON AF KOSOVAN >60 Normal >=60 [facility] Comment on above: Performed By: #### U MICRO, ERUR #### [facility] [address] [address] [address] Alfredo Lizama Glucose [Mass/Vol] 96 mg/dL Normal 74-106 [facility] Comment on above: Performed By: #### U MICRO, ERUR #### [facility] [address] [address] [address] Alfredo Lizama Potassium [Moles/Vol] 4.0 mmol/L Normal 3.5-5.1 [facility] Comment on above: Performed By: #### U MICRO, ERUR #### [facility] [address] [address] [address] Alfredo Lizama Sodium [Moles/Vol] 137 mmol/L Normal 136-145 [facility] Comment on above: Performed By: #### U MICRO, ERUR #### [facility] [address] [address] [address] Alfredo Lizama Urea nitrogen [Mass/Vol] 7.0 mg/dL Normal 7.0-18.0 [facility] Comment on above: Performed By: #### U MICRO, ERUR #### [facility] [address] [place] [address] Dr. Alfredo Lizama Urea nitrogen/Creatinine [Mass ratio] 9.1 mg/mg Normal [facility] Comment on above: Performed By: #### U MICRO, ERUR #### [facility] [address] [place] [address] Dr. Alfredo Lizama URINE MICROSCOPIC ONLYon BACTERIA MODERATE Abnormal NONE SEEN [facility] Comment on above: Performed By: #### U MICRO, ERUR #### [facility] [address] [place] [address] Dr. Alfredo Lizama Bacteria identified Cx Nom (U) INDICATED Normal [facility] Comment on above: Performed By: #### U MICRO, ERUR #### [facility] [address] [place] [address] Dr. Alfredo Lizama CAST NONE SEEN Normal NONE SEEN [facility] Comment on above: Performed By: #### U MICRO, ERUR #### [facility] [address] [place] [address] Dr. Alfredo Lizama Crystals LM Nom (Urine sed) NONE SEEN Normal NONE SEEN [facility] Comment on above: Performed By: #### U MICRO, ERUR #### [facility] [address] [place] [address] Dr. Alfredo Lizama Epithelial cells LM Ql (Urine sed) FEW Abnormal NONE SEEN /RARE [facility] Comment on above: Performed By: #### U MICRO, ERUR #### [facility] [address] [place] [address] Dr. Alfredo Lizama MUCOUS NONE SEEN Normal NONE SEEN [facility] Comment on above: Performed By: #### U MICRO, ERUR #### [facility] [address] [place] [address] Dr. Alfredo Lizama RBC 2-5 Abnormal 0-2 [facility] Comment on above: Performed By: #### U MICRO, ERUR #### [facility] [address] [place] [address] Dr. Alfredo Lizama WBC 10-20 Abnormal NONE SEEN [facility] Comment on above: Performed By: #### U MICRO, ERUR #### [facility] [address] [place] [address] Dr. Alfredo Lizama CULTURE URINEon 04-10-2022 CULTURE [...] Trimethoprim/Sulfamethoxa zole <=20 S F Normal [facility] Comment on above: Performed By: #### U MICRO, ERUR #### [facility] [address] [place] [address] Dr. Alfredo Lizama ER URINE PROFILEon 2 Bilirubin Ql (U) Negative Normal NEGATIVE [facility] Comment on above: Performed By: #### U MICRO, ERUR #### [facility] [address] [place] [address] Dr. Alfredo Lizama Clarity (U) CLOUDY Abnormal CLEAR [facility] Comment on above: Performed By: #### U MICRO, ERUR #### [facility] [address] [address] [address] Alfredo Lizama Color (U) YELLOW Normal YELLOW [facility] Comment on above: Performed By: #### U MICRO, ERUR #### [facility] [address] [address] [address] Alfredo LÓPEZD A micrscopic examina tion will be performed if indicated. Normal [facility] Comment on above: Performed By: #### U MICRO, ERUR #### [facility] [address] [address] [address] Alfredo Lizama Glucose Ql (U) Negative Normal NEGATIVE [facility] Comment on above: Performed By: #### U MICRO, ERUR #### [facility] [address] [place] [address] Dr. Alfredo Lizama Hemoglobin Ql (U) SMALL Abnormal NEGATIVE [facility] Comment on above: Performed By: #### U MICRO, ERUR #### [facility] [address] [place] [address] Dr. Alfredo Lizama Ketones Ql (U) Negative Normal NEGATIVE [facility] Comment on above: Performed By: #### U MICRO, ERUR #### [facility] [address] [address] [address] Alfredo Lizama LEUKOCYTES LARGE Abnormal NEGATIVE [facility] Comment on above: Performed By: #### U MICRO, ERUR #### [facility] [address] [place] [address] Dr. Alfredo Lizama Nitrite Ql (U) Negative Normal NEGATIVE [facility] Comment on above: Performed By: #### U MICRO, ERUR #### [facility] [address] [address] [address] Alfredo Lizama pH (U) 7.0 [pH] Normal 5-9 [facility] Comment on above: Performed By: #### U MICRO, ERUR #### [facility] [address] [place] [address] Dr. Alfredo Lizama SPEC GRAVITY <=1.005 Abnormal 1.005-<=1. 025 [facility] Comment on above: Performed By: #### U MICRO, ERUR #### [facility] [address] [place] [address] Dr. Alfredo Lizama UA PROTEIN Negative Normal NEGATIVE/ TRACE [facility] Comment on above: Performed By: #### U MICRO, ERUR #### [facility] [address] [place] [address] Dr. Alfredo Lizama UR MICRO IND INDICATED Normal [facility] Comment on above: Performed By: #### U MICRO, ERUR #### [facility] [address] [place] [address] Dr. Alfredo Lizama Urobilinogen Qn (U) 0.2 {Tesha'U}/dL Normal 0.2 - 1. 0 [facility] Comment on above: Performed By: #### U MICRO, ERUR #### [facility] [address] [place] [address] Dr. Alfredo Lizama URINE MICROSCOPIC ONLYon BACTERIA MODERATE Abnormal NONE SEEN [facility] Comment on above: Performed By: #### U MICRO, ERUR #### [facility] [address] [place] [address] Dr. Alfredo Lizama Bacteria identified Cx Nom (U) INDICATED Normal [facility] Comment on above: Performed By: #### U MICRO, ERUR #### [facility] [address] [place] [address] Dr. Alfredo Lizama CAST NONE SEEN Normal NONE SEEN [facility] Comment on above: Performed By: #### U MICRO, ERUR #### [facility] [address] [place] [address] Dr. Alfredo Lizama Crystals LM Nom (Urine sed) NONE SEEN Normal NONE SEEN [facility] Comment on above: Performed By: #### U MICRO, ERUR #### [facility] [address] [place] [address] Dr. Alfredo Lizaam Epithelial cells LM Ql (Urine sed) FEW Abnormal NONE SEEN /RARE [facility] Comment on above: Performed By: #### U MICRO, ERUR #### [facility] [address] [place] [address] Dr. Alfredo Lizama MUCOUS NONE SEEN Normal NONE SEEN [facility] Comment on above: Performed By: #### U MICRO, ERUR #### [facility] [address] [address] [address] Alfredo Lizama RBC 5-10 Abnormal 0-2 [facility] Comment on above: Performed By: #### U MICRO, ERUR #### [facility] [address] [address] [address] Alfredo Lizama WBC (U) [#/Vol] /uL Abnormal NONE SEEN [facility] Comment on above: Performed By: #### U MICRO, ERUR #### [facility] [address] [address] [address] Alfredo Lizama Clinical Event Note-Need for [...] of the lumbar region. Provider/Team Contact Info-Pager [phone] Electronic Signatures: Sharmin Guaman (GUEST RELATIONS REPRESENTATIVE-MALWARE ANALYST) (Signed 02-Oct-2021 15:19) Authored: Clinical Event Note Last Updated: 02-Oct-2021 15:19 by Sharmin Guaman (GUEST RELATIONS REPRESENTATIVE-MALWARE ANALYST) Normal [facility] Clinical Event Note-Need for wheel [...] home, can self propel or has a customer care agent to provide assistance. Provider/Team Contact Info-Pager [phone] Electronic Signatures: Sharmin Guaman (GUEST RELATIONS REPRESENTATIVE-MALWARE ANALYST) (Signed 02-Oct-2021 15:27) Authored: Clinical Event Note Last Updated: 02-Oct-2021 15:27 by Sharmin Guaman (GUEST RELATIONS REPRESENTATIVE-MALWARE ANALYST) Normal [facility] Daily Progress Note-Neurosur geryon 10-02-2021 Daily Progress Note-Neurosurgery Service: Neurosurgery Subjective Data: MORALES LEE is a 46 year old Female who is Hospital Day # 18 and POD #11 for posterior L4-L5 decompression;posterior L4-L5 arthrodesis. Objective Data: Objective Information: T PRBPSpO2 [id number]/8397% Date/Time10/02 1: 1: 1: 1: 1:28 Range(36.2C [...] 2021 10:00 pm000 Oct 01, 2021 2:00 [id number] The Intake and Output Totals for the [...] the note. I personally evaluated the patient [id number] Electronic Signatures: Kenneth Philippe (Resident)) (Signed 02-Oct-2021 06:52) Authored: Service, Subjective Data, Objective Data, Assessment and Plan, Note Completion Lex Frederick) (Signed 02-Oct-2021 15:16) Authored: Note Completion Co-Signer: Service, Subjective Data, Objective Data, Assessment and Plan, Note Completion Last Updated: 02-Oct-2021 15:16 by Lex Frederick) Normal [facility] Clinical Event Note-Discharg e discussionon [...] duration of trip. Electronic Signatures: Emma Izaguirre (GUEST RELATIONS REPRESENTATIVE-MALWARE ANALYST) (Signed 01-Oct-2021 17:11) Authored: Clinical Event Note Last Updated: 01-Oct-2021 17:11 by Emma Izaguirre (GUEST RELATIONS REPRESENTATIVE-MALWARE ANALYST) Normal [facility] Clinical Event Note-Need for hospital [...] when lying flat. Electronic Signatures: Emma Izaguirre (GUEST RELATIONS REPRESENTATIVE-MALWARE ANALYST) (Signed 01-Oct-2021 14:48) Authored: Clinical Event Note Last Updated: 01-Oct-2021 14:48 by Emma Izaguirre (GUEST RELATIONS REPRESENTATIVE-MALWARE ANALYST) Normal [facility] Daily Progress Note-Neurosjudy leonidasgaurang 10-01-2021 Daily Progress Note-Neurosurgery Service: Neurosurgery Subjective Data: MORALES LEE is a 46 year old Female who is Hospital Day # 17 and POD #10 for posterior L4-L5 decompression;posterior L4-L5 arthrodesis. Objective Data: Objective Information: T PRBPSpO2 [id number]/7194% Date/Time10/01 0: 0: 0:381 0:381 0:38 Range(35.6C - 36.8C ) (64 - 96 ) (16 - 19 ) (94 - 138 )/ (59 - 83 ) (92% - 94% ) Pain reported at 09/30 9:00: 2 = Mild ---- Intake and Output ----- Mn/Dy/Year TimeIntakeOutputNet Sep 29, 2021 10:00 [id number] Sep 29, 2021 2:00 [id number] Sep 29, 2021 6:00 am000 The Intake [...] the note. Electronic Signatures: Lex Frederick) (Signed 27-Benjamin-2022 10:29) Authored: Note Completion Co-Signer: Service, Subjective Data, Objective Data, Assessment and Plan, Note Completion Jaya Mosquera (Resident)) (Signed 01-Oct-2021 01:35) Authored: Service, Subjective Data, Objective Data, Assessment and Plan, Note Completion Last Updated: 01-Oct-2021 10:29 by Lex Frederick) Normal [facility] Daily Progress Note-Neurosurgery This report has been cancelled. Normal [facility] Daily Progress Note-Neurosur geryon 09-30-2021 Daily Progress Note-Neurosurgery Service: Neurosurgery Subjective Data: MORALES LEE is a 46 year old Female who is Hospital Day # 15 and POD #8 for posterior L4-L5 decompression;posterior L4-L5 arthrodesis. Objective Data: Objective Information: T PRBPSpO2 [id number]/7393% Date/Time09/29 16: 16: 16: 16: 16:00 Range(36C - 36.7C ) (67 - 86 ) (17 - 20 ) (94 - 153 )/ (15 - 113 ) (93% - 98% ) Pain reported at 09/29 9:56: 5 = Moderate ---- Intake and Output ----- Mn/Dy/Year TimeIntakeOutputNet Sep 29, 2021 2:00 [id number] Sep 29, 2021 6:00 am000 Sep 28, 2021 10:00 [id number] The Intake and Output Totals for the [...] the note. I personally evaluated the patient [id number] Electronic Signatures: Lex Frederick) (Signed 30-Sep-2021 11:18) Authored: Note Completion Co-Signer: Service, Subjective Data, Objective Data, Assessment and Plan, Note Completion Jaya Mosquera (Resident)) (Signed 30-Sep-2021 03:18) Authored: Service, Subjective Data, Objective Data, Assessment and Plan, Note Completion Last Updated: 30-Sep-2021 11:18 by Lex Frederick) Normal [facility] Rehab Picc-xi-[id number] - co -tx /c OT to address multidiscipon 09-30-2021 Rehab Hxto-dc-nwpwvlmvi - co-tx /c OT to address multidiscip Rehab: Info: Disciplinephysical physical therapy supervisor Mode of Treatmentphysical therapy; co-treatment; co-tx /c OT to address multidisciplinary functional needs and maximize pt's safety. Time IN12:15 Time OUT12:55 Total Treatment [id number] Patient in ... at end of sessionbed, 3 railings up; alarm off; not on at start of visit Communicated with ... at end of sessionbedside nurse Patient Effortgood Symptoms Noted During/After Treatmentfatigue Treatment Considerations/CommentsEx tensive discussion /c amongst CHIEF NUCLEAR MEDICINE TECHNOLOGIST, OT, and pt regarding her current [...] rolling right; rolling left; scooting/bridging Roll Left Beckham (Bed Mobility)moderate assist (50% patient effort); 1 person assist; nonverbal cues (demo/gesture); verbal cues Roll Right Beckham (Bed Mobility)moderate assist (50% patient effort); 1 person assist; nonverbal cues (demo/gesture); verbal cues Scoot/Bridge Beckham (Bed Mobility)maximum assist (25% patient effort); 2 person assist; nonverbal cues (demo/gesture); verbal cues Zznhxx-uj-Qxr Beckham (Bed Mobility)maximum assist (25% patient effort); 2 person assist; nonverbal cues (demo/gesture); verbal cues Igt-vz-Ujgcck Beckham (Bed Mobility)maximum assist (25% patient effort); 2 person assist; nonverbal cues (demo/gesture); verbal cues Assistive Device (Bed Mobility)bed rails; draw sheet Comment, Bed MobilityPt showing improvement in her ability to roll, performing 50% of AROM to achieve full rolling position. Transfer Assessment/Interventionss it to stand transfer; stand to sit transfer Comment, TransfersToday's session, OT and I utilized CTI Towers Stand device to assist pt into full [...] Pt repositioned back to sitting EOB. Sit-Stand Beckham (Transfers)dependent (less than 25% patient effort) Sit-Stand Assistive Device (Transfers)mechanical lift/aid Stand-Sit Beckham (Transfers)dependent (less than 25% patient effort) Stand-Sit [...] Score8 Short Term Goals: Bed Mobility: Date [id number]-8698 Bed Mobility: Beckham Level Goalminimum assist (75% patients effort) Bed Mobility: Physical Assist Level Goal1-person assist, verbal cues Bed Mobility: Time Frame for Goal2 wks Transfer: Established [id number]-Csr-3551 Transfer: Transfer Type Miazagg-gc-lnhod/chair-to -bed; jkq-ig-wchmj/orjfv-zu-zpm Transfer: Beckham Level Goalmoderate assist (50% patients effort) Transfer: Physical Assist Level Goal1-person assist; verbal cues Transfer: Assistive Device Goalrolling walker Transfer: Time Frame for Goal2 wks Gait: Established [id number] Gait: Beckham Level Goalmoderate assist (50% patients (more content not included)... Normal [facility] Rehab Note-occupational health and safety officer apy - co-tx with PT to maximizeon 09-30-2021 Rehab Note-occupational therapy - co-tx with PT to maximize Rehab: Info: Disciplineoccupational therapist Mode of Treatmentoccupational therapy; co-tx with PT to maximize pt's mobility and safety. Time IN12:15 Time OUT12:55 Total Treatment [id number] Patient in ... at end of sessionbed, [...] olling right; rolling left; scooting/bridging Roll Left Beckham (Bed Mobility)moderate assist (50% patient effort); 1 person assist; nonverbal cues (demo/gesture); verbal cues Roll Right Beckham (Bed Mobility)moderate assist (50% patient effort); 1 person assist; nonverbal cues (demo/gesture); verbal cues Scoot/Bridge Beckham (Bed Mobility)maximum assist (25% patient effort); 2 [...] lower body dressing; upper body dressing; bathing Beckham Level (Bathing)set up; verbal cues; moderate assist (50% patient effort); 1 person assist Comment (Bathing)anticipated due to impaired balance, strength, and pain. Beckham Level (Upper Body Dressing)set up; verbal cues; moderate assist (50% patient effort) Comment (Upper Body Dressing)anticipated due to impaired balance, strength, and pain. Beckham Level (Lower Body Dressing)don; socks; dependent (less than 25% patient effort) Position (Lower Body Dressing)supine Beckham Level (Grooming)modified independence Comment (Grooming)Pt observed applying Orajel to gums, able to manage packaging, cap un/screwing, and application. Beckham Level (Feeding)modified independence Comment (Feeding)Pt able to retrieve OJ cup from tray table at R side, bring to mouth, and drink appropriately. Beckham Level (Toileting)dependent (less than 25% patient effort); [...] Score15 Short Term Goals: Bed Mobility: Date Shrmkrlomnp92-Wgz-9474 Bed Mobility: Beckham Level Goalcontact guard Bed Mobility: Physical Assist Level Goalset-up, verbal cues Bed Mobility: Time Frame for Goal2 wks Transfer: Established [id number]-Dsc-0781 Transfer: Transfer Type Naivgti-wu-lnios/chair-to -bed; urq-wp-xegze/tpkwo-gi-lbc ; toilet Transfer: Beckham Level Goalminimum assist (75% patients effort) Transfer: Physical Assist Level Goalset-up; verbal cues; 1-person assist Transfer: Assistive Device GoalLRD Transfer: Time Frame for Goal2 wks Balance: Established Balance: Goal DetailsPt will perform ADL while reaching outside MADDIE and returning self to midline >8 minutes with set-up assist, SBA, and minimal verbal cues for safety. Enrique (more content not included)... Normal [facility] Daily Progress Note-Neurosjudy stearns 09-29-2021 Daily Progress Note-Neurosurgery Service: Neurosurgery Subjective Data: MORALES LEE is a 46 year old Female who is Hospital Day # 14 and POD #7 for posterior L4-L5 decompression;posterior L4-L5 arthrodesis. Objective Data: Objective Information: T PRBPSpO2 [id number]/6993% Date/Time09/28 4: 8: 8: 8: 8:00 Range(36C [...] 2021 6:00 am000 Sep 27, 2021 10:00 [id number] Sep 27, 2021 2:00 [id number] The Intake and Output Totals for the last 24 hours are: IntakeOutputNet [id number] Physical Exam by System: Neurological: A&Ox3 RUE [...] the note. I personally evaluated the patient [id number] Electronic Signatures: Lex Frederick) (Signed 29-Sep-2021 09:23) Authored: Note Completion Co-Signer: Service, Subjective Data, Objective Data, Assessment and Plan, Note Completion Jaya Mosquera (Resident)) (Signed 29-Sep-2021 03:01) Authored: Service, Subjective Data, Objective Data, Assessment and Plan, Note Completion Last Updated: 29-Sep-2021 09:23 by Lex Frederick) [facility] Rehab Bgvq-yb-wfncdiexa - co -tx /c OT to address multidiscipon 09-29-2021 Rehab Vopt-vp-wiixbujwi - co-tx /c OT to address multidiscip Rehab: Info: Disciplinephysical physical therapy supervisor Mode of Treatmentphysical therapy; co-treatment; co-tx /c OT to address multidisciplinary functional needs and maximize pt's safety. Time IN14:30 Time OUT15:40 Total Treatment [id number] Patient in ... at end of sessionbed, [...] to sit; sit to supine Roll Left Beckham (Bed Mobility)maximum assist (25% patient effort); 2 person assist; verbal cues; nonverbal cues (demo/gesture) Roll Right Beckham (Bed Mobility)maximum assist (25% patient effort); 2 person assist; verbal cues; nonverbal cues (demo/gesture) Scoot/Bridge Beckham (Bed Mobility)maximum assist (25% patient effort); 2 person assist; nonverbal cues (demo/gesture); verbal cues Lirtcy-gu-Czg Beckham (Bed Mobility)maximum assist (25% patient effort); 2 person assist; nonverbal cues (demo/gesture); verbal cues Kbv-tl-Tjljqd Beckham (Bed Mobility)verbal cues; nonverbal cues (demo/gesture); maximum [...] Pt repositioned back to sitting EOB. Sit-Stand Beckham (Transfers)dependent (less than 25% patient effort) Sit-Stand Assistive Device (Transfers)mechanical lift/aid Stand-Sit Beckham (Transfers)dependent (less than 25% patient effort) Stand-Sit [...] Score8 Short Term Goals: Bed Mobility: Date Ftrmgrunwfe18-Grx-0946 Bed Mobility: Beckham Level Goalminimum assist (75% patients effort) Bed Mobility: Physical Assist Level Goal1-person assist, verbal cues Bed Mobility: Time Frame for Goal2 wks Transfer: Established Transfer: Transfer Type Blqoziq-wq-nxyeg/chair-to -bed; crq-kr-izpyg/texcg-ya-mzq Transfer: Beckham Level Goalmoderate assist (50% patients effort) Transfer: Physical Assist Level Goal1-person assist; verbal cues Transfer: Assistive Device Goalrolling walker Transfer: Time Frame for Goal2 wks Gait: Established Gait: Beckham Level Goalmoderate assist (50% patients effort) Gait: [...] fair Outcome (more content not included)... Normal [facility] Rehab Note-occupational health and safety officer apy - co-tx with PT to maximizeon 09-29-2021 Rehab Note-occupational therapy - co-tx with PT to maximize Rehab: Info: Disciplineoccupational therapist Mode of Treatmentoccupational therapy; co-tx with PT to maximize pt's mobility and safety. Time IN14:30 Time OUT15:40 Total Treatment [id number] Patient in ... at end of sessionbed, [...] to sit; sit to supine Roll Left Beckham (Bed Mobility)maximum assist (25% patient effort); 2 person assist; verbal cues; nonverbal cues (demo/gesture); multiple rolls to adjust harness Roll Right Beckham (Bed Mobility)maximum assist (25% patient effort); 2 person assist; verbal cues; nonverbal cues (demo/gesture); multiple rolls to adjust harness Scoot/Bridge Beckham (Bed Mobility)maximum assist (25% patient effort); 2 person assist; nonverbal cues (demo/gesture); verbal cues; boost HOB Ctbhij-xo-Zot Beckham (Bed Mobility)maximum assist (25% patient effort); 2 person assist; nonverbal cues (demo/gesture); verbal cues Gid-zb-Npcmpu Beckham (Bed Mobility)verbal cues; nonverbal cues (demo/gesture); maximum assist (25% patient effort); 2 person assist Assistive Device (Bed Mobility)draw sheet; bed rails Transfer Assessment/Interventionss it to stand transfer; stand to sit transfer Sit-Stand Beckham (Transfers)dependent (less than 25% patient effort) Sit-Stand Assistive Device (Transfers)mechanical lift/aid; Faye Plus Stand-Sit Beckham (Transfers)dependent (less than 25% patient effort) Stand-Sit Assistive Device (Transfers)mechanical lift/aid; Faye Plus Safety Issues Impacting Function (Mobility)awareness of need for assistance; insight into deficits/self awareness Impairments Impacting Function (Mobility)endurance/activ ity tolerance; strength; balance; coordination; postural/trunk control ADL: BADL Assessment/Interventionto ileting; feeding; grooming; lower body dressing; upper body dressing; bathing Beckham Level (Bathing)set up; verbal cues; moderate assist (50% patient effort); 1 person assist Comment (Bathing)anticipated due to impaired balance, strength, and pain. Beckham Level (Upper Body Dressing)set up; verbal cues; moderate assist (50% patient effort) Comment (Upper Body Dressing)anticipated due to impaired balance, strength, and pain. Beckham Level (Lower Body Dressing)don; socks; dependent (less than 25% patient effort) Position (Lower Body Dressing)supine Beckham Level (Grooming)set up; contact guard Comment (Grooming)anticipated due to impaired balance, strength, and pain. Beckham Level (Feeding)set up; modified independence Comment (Feeding)anticipated Beckham Level (Toileting)dependent (less than 25% patient effort); purewick Impairments, BADL Safety/Performancebalance ; cognition; endurance/activity tolerance; strength; trunk/postural control Cognitive Impairments, BADL Safety/Performanceawarene ss, need for assistance; insight into deficits/self awareness; judgment; problem solving/reasoning Motor: Sitting, Static (Balance)good balance SBA Sitting, Dynamic (Balance)fair balance CGA Nlz-yk-Fmrri (Balance)poor balance Total A via Faye Plus lift Standing, Static (Balance)poor balance Max A x1 - via Faye Plus Standing, Dynamic (Balance)unable to balance Balance ActivitiesPt sat EOB ~20 minutes throughout session primarily with SB (more content not included)... Normal [facility] Clinical Event Note-Medical Assessmenton 09-28-2021 [...] oil enema alternating with tap water enema [id number] - Bisacodyl suppository QHS Daily - Monitor [...] for wound check 10/07/21 at 10:15 am, [place] 5th floor - F/U with Dr. Frederick [...] note 45 minutes; Electronic Signatures: Concetta Shi (GUEST RELATIONS REPRESENTATIVE-MALWARE ANALYST) (Signed 28-Sep-2021 14:31) Authored: Clinical Event Note Last Updated: 28-Sep-2021 14:31 by Concetta Shi (GUEST RELATIONS REPRESENTATIVE-MALWARE ANALYST) [facility] Daily Progress Note-Gastroen terologyon 09-28-2021 Daily Progress Note-Gastroenterology Service: Gastroenterology Subjective Data: MORALES LEE is a 46 year old Female who is Hospital Day # 14 and POD #7 for posterior L4-L5 decompression;posterior L4-L5 arthrodesis. No events overnight. Had one bowel movement this am. Otherwise no complaints. Objective Data: Objective Information: T PRBPSpO2 [id number]/6993% Date/Time09/28 4: 8: 8: 8: 8:00 Range(36C [...] 2021 6:00 am000 Sep 27, 2021 10:00 [id number] Sep 27, 2021 2:00 [id number] The Intake and Output Totals for the last 24 hours are: IntakeOutputNet [id number] Physical Exam by System: Constitutional: Constitutional: A&Ox3, [...] recommend tr (more content not included)... Normal [facility] Daily Progress Note-Neurosur jinny 09-28-2021 Daily Progress Note-Neurosurgery Service: Neurosurgery Subjective Data: MORALES LEE is a 46 year old Female who is Hospital Day # 14 and POD #7 for posterior L4-L5 decompression;posterior L4-L5 arthrodesis. Objective Data: Objective Information: T PRBPSpO2 [id number]/4893% Date/Time09/28 4: 4: 4: 4: 4:00 Range(36C - 36.6C ) (72 - 87 ) (15 - 22 ) (92 - 153 )/ (48 - 113 ) (92% - 99% ) As of 27-Sep-2021 22:00:00, patient is on 2 L/min of oxygen via nasal cannula. Pain reported at 09/27 22:00: 0 = None ---- Intake and Output ----- Mn/Dy/Year TimeIntakeOutputNet Sep 26, 2021 10:00 [id number] Sep 26, 2021 2:00 [id number] The Intake and Output Totals for the last 24 hours are: IntakeOutputNet [id number] Physical Exam by System: Neurological: A&Ox3 RUE [...] the note. I personally evaluated the patient [id number] Electronic Signatures: Fidel Maciel (Resident)) (Signed 28-Sep-2021 05:47) Authored: Service, Subjective Data, Objective Data, Assessment and Plan, Note Completion Lex Frederick) (Signed 28-Sep-2021 07:32) Authored: Note Completion Co-Signer: Service, Subjective Data, Objective Data, Assessment and Plan, Note Completion Last Updated: 28-Sep-2021 07:32 by Lex Frederick) Normal [facility] RENAL FUNCTION PANELon 09-28 Albumin [Mass/Vol] 3.1 g/dL Low 3.4 - 5.0 [facility] Comment on above: Performed By: #### R ENAL ####[id number] [place] [address] Anion gap [Moles/Vol] 17 mmol/L Normal 10 - 20 [facility] Comment on above: Performed By: #### R ENAL ####[id number] [place] [address] Calcium [Mass/Vol] 8.4 mg/dL Low 8.6 - 10.6 [facility] Comment on above: Performed By: #### R ENAL ####[id number] [place] [address] Chloride [Moles/Vol] 102 mmol/L Normal 98 - 107 [facility] Comment on above: Performed By: #### R ENAL ####[id number] [place] [address] Creatinine [Mass/Vol] 0.47 mg/dL Low 0.50 - 1.05 [facility] Comment on above: Performed By: #### R ENAL ####[id number] [place] [address] eGFR FEMALE >90 Normal >90 [facility] Comment on above: Result Comment: CALC ULATIONS OF ESTIMATED GFR ARE PERFORMED USING THE 2020 CKD-EPI STUDY REFIT EQUATION WITHOUT THE RACE VARIABLE FOR THE IDMS-TRACEABLE CREATININE METHODS. https://jasn.asnjournals.org/content///ASN.828 0865789 Performed By: #### R ENAL ####[id number] [place] [address] Glucose [Mass/Vol] 74 mg/dL Normal 74 - 99 [facility] Comment on above: Performed By: #### R ENAL ####[id number] [place] [address] HCO3 (Bld) [Moles/Vol] 27 mmol/L Normal 21 - 32 [facility] Comment on above: Performed By: #### R ENAL ####[id number] [place] [address] Phosphate [Mass/Vol] 3.4 mg/dL Normal 2.5 - 4.9 [facility] Comment on above: Result Comment: The performance characteristics of phosphorus testing in heparinized plasma have been validated by the individual laboratory site where testing is performed. Testing on heparinized plasma is not approved by the FDA; however, such approval is not necessary. Performed By: #### R ENAL ####[id number] [place] [address] Potassium [Moles/Vol] 3.7 mmol/L Normal 3.5 - 5.3 [facility] Comment on above: Performed By: #### R ENAL ####[id number] [place] [address] Sodium [Moles/Vol] 142 mmol/L Normal 136 - 145 [facility] Comment on above: Performed By: #### R ENAL ####[id number] [place] [address] Urea nitrogen [Mass/Vol] 6 mg/dL Normal 6 - 23 [facility] Comment on above: Performed By: #### R ENAL ####[id number] [place] [address] Radiologyon 09-28-2021 XR Abdomen AP Normal [facility]-Gastroen terology-Rosendo moura 6 [facility] Work Phone: Rehab Note-attemptedon 09-28 Rehab Note-attempted Rehab: Info: Disciplinephysical physical therapy supervisor Mode of Treatmentattempted Time IN15:30 Reason Treatment Not Performedpatient/family declined treatment, not feeling well Treatment Considerations/CommentsPt declined therapy at this time 2* increased fatigue, nausea. Pt stated NO! NO! NO! upon therapists arrival, even /c increased encouragement. Will reattempt as schedule allows. Short Term Goals: Bed Mobility: Date [id number] Bed Mobility: Beckham Level Goalminimum assist (75% patients effort) Bed Mobility: Physical Assist Level Goal1-person assist, verbal cues Bed Mobility: Time Frame for Goal2 wks Transfer: Established Puwg95-Mwp-7575 Transfer: Transfer Type Mgbtout-xn-qknzr/chair-to -bed; nrl-kt-syxgl/lxjyi-ex-wuv Transfer: Beckham Level Goalmoderate assist (50% patients effort) Transfer: Physical Assist Level Goal1-person assist; verbal cues Transfer: Assistive Device Goalrolling walker Transfer: Time Frame for Goal2 wks Gait: Established [id number]-Hvh-8658 Gait: Beckham Level Goalmoderate assist (50% patients effort) Gait: Physical Assist Level1-person assist; verbal cues Gait: Assistive Device Goalrolling walker Gait: Distance Goal15 feet Gait: Time Frame for Goal2 wks Balance: Established Ishr78-Pob-9204 Balance: Goal DetailsSitting EOB 20 minutes with 0-1 UE support, SBA for static sitting, CGA for dynamic. Standing 1 minute with FWW and CGA Electronic Signatures: Yosi Campbell (CHIEF NUCLEAR MEDICINE TECHNOLOGIST) (Signed 28-Sep-2021 15:32) Entered: Short Term Goals, Info Authored: Info, Short Term Goals Boone Broussard (PT) (Signed 01-Oct-2021 09:01) Co-Signer: Short Term Goals, Info Last Updated: 01-Oct-2021 09:01 by Boone Broussard (PT) Normal [facility] Rehab Note-attempted Rehab: Info: Mode [...] 28-Sep-2021 15:28 by Silvana Marshall (OT) Normal [facility] Renal Function Panelon 09-28 Albumin [...] Phone: Renal Function Panel >90 >90 [facility]-Rosendo zeny 6 [facility] Work Phone: Comment on above: CALCULATIONS OF IVY MATED GFR ARE PERFORMED USING THE 2020 CKD-EPI STUDY REFIT EQUATION WITHOUT THE RACE VARIABLE FOR THE IDMS-TRACEABLE CREATININE METHODS.https://jasn.asnjournals.org/content/early/ /ASN.3992624992 TH ABDOMEN AP VIEWon 022 ABDOMEN AP VIEW Patient Name: MORALES LEE STUDY: ABDOMEN AP VIEW; 09/28/2021 1:22 pm INDICATION: Abd. dist. . COMPARISON: 09/27/2021 abdominal radiograph. ACCESSION NUMBER(S): [id number] ORDERING CLINICIAN: CONCETTA SHI FINDINGS: Two AP [...] as stated. This study was interpreted at [facility], [place], [place]. Electronically signed by: TANIKA SUTTON MD 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 Has been on scheduled bowel regimen with [...] penicillin: Unknown Objective: Objective Information: T PRBPSpO2 [id number]/84158% Date/Time09/27 4: 4: 4: 4:00 Range (76 [...] C6-7 ACDFF, (more content not included)... Normal [facility] Daily Progress Note-Neurosjudy stearns 09-27-2021 Daily Progress Note-Neurosurgery Service: Neurosurgery Subjective Data: MORALES LEE is a 46 year old Female who is Hospital Day # 13 and POD #6 for posterior L4-L5 decompression;posterior L4-L5 arthrodesis. Objective Data: Objective Information: T PRBPSpO2 [id number]/27237% Date/Time09/26 11:0809/27 4: 4: 4: 4:00 Range(37C [...] 2021 6:00 am000 Sep 26, 2021 10:00 [id number] Sep 26, 2021 2:00 [id number] The Intake and Output Totals for the last 24 hours are: IntakeOutputNet [id number] Physical Exam by System: Neurological: A&Ox3 RUE [...] the note. I personally evaluated the patient [id number] Electronic Signatures: Chaparro Umana (Resident)) (Signed 27-Sep-2021 06:11) Authored: Service, Subjective Data, Objective Data, Assessment and Plan, Note Completion Natalia Palacios) (Signed 08-Oct-2021 14:31) Authored: Note Completion Co-Signer: Service, Subjective Data, Objective Data, Assessment and Plan, Note Completion Last Updated: 08-Oct-2021 14:31 by Natalia Palacios) Normal [facility] MAGNESIUMon 09-27-2021 Magnesium [Mass/Vol] 1.80 mg/dL Normal 1.60 - 2.40 [facility] Comment on above: Performed By: #### C BC #### [facility] [id number] [place] [address] Magnesium, Serumon Magnesium [Mass/Vol] 1.80 mg/dL See Below MG-G astroen terology-Rosendo moura 6 [facility] Work Phone: Comment on above: Reference Range: 1.6 0 - 2.40 RENAL FUNCTION PANELon 09-27 Albumin [Mass/Vol] 3.3 g/dL Low 3.4 - 5.0 [facility] Comment on above: Performed By: #### R ENAL #### [facility] [address] [place] [address] Anion gap [Moles/Vol] 17 mmol/L Normal 10 - 20 [facility] Comment on above: Performed By: #### R ENAL #### [facility] [address] [place] [address] Calcium [Mass/Vol] 8.5 mg/dL Low 8.6 - 10.6 [facility] Comment on above: Performed By: #### R ENAL #### [facility] [address] [place] [address] Chloride [Moles/Vol] 98 mmol/L Normal 98 - 107 [facility] Comment on above: Performed By: #### R ENAL #### [facility] [address] [place] [address] Creatinine [Mass/Vol] 0.44 mg/dL Low 0.50 - 1.05 [facility] Comment on above: Performed By: #### R ENAL #### [facility] [address] [place] [address] eGFR FEMALE >90 Normal >90 [facility] Comment on above: Result Comment: CALC ULATIONS OF ESTIMATED GFR ARE PERFORMED USING THE 2020 CKD-EPI STUDY REFIT EQUATION WITHOUT THE RACE VARIABLE FOR THE IDMS-TRACEABLE CREATININE METHODS. https://jasn.asnjournals.org/content/early/ASN.412 2822666 Performed By: #### R ENAL #### [facility] [address] [place] [address] Glucose [Mass/Vol] 91 mg/dL Normal 74 - 99 [facility] Comment on above: Performed By: #### R ENAL #### [facility] [address] [place] [address] HCO3 (Bld) [Moles/Vol] 26 mmol/L Normal 21 - 32 [facility] Comment on above: Performed By: #### R ENAL #### [facility] [address] [place] [address] Phosphate [Mass/Vol] 4.0 mg/dL Normal 2.5 - 4.9 [facility] Comment on above: Result Comment: The performance characteristics of phosphorus testing in heparinized plasma have been validated by the individual laboratory site where testing is performed. Testing on heparinized plasma is not approved by the FDA; however, such approval is not necessary. Performed By: #### R ENAL #### [facility] [address] [place] [address] Potassium [Moles/Vol] 4.1 mmol/L Normal 3.5 - 5.3 [facility] Comment on above: Performed By: #### R ENAL #### [facility] [address] [place] [address] Sodium [Moles/Vol] 137 mmol/L Normal 136 - 145 [facility] Comment on above: Performed By: #### R ENAL #### [facility] [address] [place] [address] Urea nitrogen [Mass/Vol] 6 mg/dL Normal - [facility] Comment on above: Performed By: #### R ENAL #### [facility] [address] [place] [address] Radiologyon 09-27-2021 XR Abdomen AP Normal [facility]-Gastroen [...] RACE VARIABLE FOR THE IDMS-TRACEABLE CREATININE METHODS.https://jasn.asnjournals.org/content/early/ /ASN.8179014580 ABDOMEN AP VIEWon 022 ABDOMEN AP VIEW Patient Name: MORALES LEE STUDY: ABDOMEN AP VIEW; 09/27/2021 2:33 am INDICATION: vomiting, constipation . COMPARISON: None. ACCESSION NUMBER(S): [id number] ORDERING CLINICIAN: FIDEL MACIEL FINDINGS: 2 AP [...] as stated. This study was interpreted at [facility], [place], [place]. Electronically signed by: DWIGHT MOY MD [facility] Daily Progress Note-Neurosjudy leonidasgaurang 09-26-2021 Daily Progress Note-Neurosurgery Service: Neurosurgery Subjective Data: MORALES LEE is a 46 year old Female who is Hospital Day # 10 and POD #5 for posterior L4-L5 decompression;posterior L4-L5 arthrodesis. Objective Data: Objective Information: T PRBPSpO2 [id number]/8299% Date/Time09/25 17: 12: 17: 17:08 Range (68 - 98 ) (21 - 23 ) (118 - 136 )/ (69 - 82 ) (92% - 99% ) Pain reported at 09/26 3:00: sleeping ---- Intake and Output ----- Mn/Dy/Year TimeIntakeOutputNet Sep 24, 2021 10:00 [id number] Sep 24, 2021 2:00 [id number] Sep 24, 2021 6:00 [id number] The Intake and Output Totals for the last 24 hours are: IntakeOutputNet [id number] Physical Exam by System: Neurological: A&Ox3 RUE [...] the note. I personally evaluated the patient [id number] Electronic Signatures: Jaya Mosquera ( (Resident)) (Signed 26-Sep-2021 07:08) Authored: Service, Subjective Data, Objective Data, Assessment and Plan, Note Completion Natalia Palacios) (Signed 08-Oct-2021 14:10) Authored: Note Completion Co-Signer: Service, Subjective Data, Objective Data, Assessment and Plan, Note Completion Last Updated: 08-Oct-2021 14:10 by Natalia Palacios) Normal [facility] Clinical Event Note-POD 4 / [...] for wound check 10/07/21 at 10:15 am, [facility] 5th floor - F/U with Dr. [...] plan of care. Electronic Signatures: Concetta Shi (GUEST RELATIONS REPRESENTATIVE-MALWARE ANALYST) (Signed 25-Sep-2021 13:30) Authored: Clinical Event Note Last Updated: 25-Sep-2021 13:30 by Concetta Shi (GUEST RELATIONS REPRESENTATIVE-MALWARE ANALYST) Normal [facility] Daily Progress Note-Nuha stearns 09-25-2021 Daily Progress Note-Neurosurgery Service: Neurosurgery Subjective Data: MORALES LEE is a 46 year old Female who is Hospital Day # 11 and POD #4 for posterior L4-L5 decompression;posterior L4-L5 arthrodesis. Objective Data: Objective Information: T PRBPSpO2 [id number]/6799% Date/Time09/24 16:/ 16: 16: 16:00 Range (68 - 78 ) (18 - 19 ) (102 - 117 )/ (57 - 73 ) (95% - 99% ) As of 24-Sep-2021 21:40:00, patient is on 2 L/min of oxygen via nasal cannula. Pain reported at 09/24 21:40: 8 = Severe ---- Intake and Output ----- Mn/Dy/Year TimeIntakeOutputNet Sep 23, 2021 10:00 [id number] Sep 23, 2021 6:00 [id number] The Intake and Output Totals for the last 24 hours are: IntakeOutputNet [id number] Physical Exam by System: Neurological: A&Ox3 RUE [...] the note. I personally evaluated the patient [id number] Electronic Signatures: Lex Frederick) (Signed 25-Sep-2021 11:57) Authored: Note Completion Co-Signer: Service, Subjective Data, Objective Data, Assessment and Plan, Note Completion Alfredo Hendrickson (Resident)) (Signed 25-Sep-2021 05:56) Authored: Service, Subjective Data, Objective Data, Assessment and Plan, Note Completion Last Updated: 25-Sep-2021 11:57 by Lex Frederick) [facility] Rehab Wzmg-rn-cfnuyraai - co -tx /c OT to address multidiscipon 09-25-2021 Rehab Slmm-hm-auwcdrllu - co-tx /c OT to address multidiscip Rehab: Info: Disciplinephysical physical therapy supervisor Mode of Treatmentphysical therapy; co-treatment; co-tx /c OT to address multidisciplinary functional needs and maximize pt's safety. Time IN15:05 Time OUT15:59 Total Treatment [id number] Patient in ... at end of sessionbed, [...] scooting/bridging; rolling right; rolling left Roll Left Beckham (Bed Mobility)maximum assist (25% patient effort); 2 person assist; verbal cues; nonverbal cues (demo/gesture) Roll Right Beckham (Bed Mobility)maximum assist (25% patient effort); 2 person assist; verbal cues; nonverbal cues (demo/gesture) Scoot/Bridge Beckham (Bed Mobility)maximum assist (25% patient effort); 2 person assist; nonverbal cues (demo/gesture); verbal cues Mwprag-ba-Ncl Beckham (Bed Mobility)maximum assist (25% patient effort); 2 person assist; verbal cues; nonverbal cues (demo/gesture) Ugv-ae-Kxuwjm Beckham (Bed Mobility)maximum assist (25% patient effort); 2 [...] unable to get to full standing. Sit-Stand Beckham (Transfers)maximum assist (25% patient effort); verbal cues; nonverbal cues (demo/gesture); 2-3 persona assist Sit-Stand Assistive Device (Transfers)walker, front-wheeled Stand-Sit Beckham (Transfers)maximum assist (25% patient effort); nonverbal cues [...] Score8 Short Term Goals: Bed Mobility: Date [id number] Bed Mobility: Beckham Level Goalminimum assist (75% patients effort) Bed Mobility: Physical Assist Level Goal1-person assist, verbal cues Bed Mobility: Time Frame for Goal2 wks Transfer: Established Transfer: Transfer Type Xtrhuim-tb-pckdw/chair-to -bed; pdp-yh-xcccm/beqmi-tt-ehe Transfer: Beckham Level Goalmoderate assist (50% patients effort) Transfer: Physical Assist Level Goal1-person assist; verbal cues Transfer: Assistive Device Goalrolling walker Transfer: Time Frame for Goal2 wks Gait: Established Gait: Beckham Level Goalmoderate assist (50% patients effort) Gait: [...] goals is gradual Electronic Signatures: Yosi Campbell (CHIEF NUCLEAR MEDICINE TECHNOLOGIST) (Signed 25-Sep-2021 16:59) Entered: Outcome Summary, Short Term Goals, Sensory, TherEx, Outcomes Tools, Info, Mobility/Tone Authored: Short Term Goals, Outcome Summary, TherEx, Outcomes Tools, Info, Mobility/Tone, Sensory Boone Broussard (PT) (Signed 01-Oct-2021 09:01) Co-Signer: Outcome Summary, Short Term Goals, Sensory, TherEx (more content not included)... Normal [facility] Rehab Note-occupational health and safety officer apy - Partial co-tx with PT to tue09-25-2021 Rehab Note-occupational therapy - Partial co-tx with PT to m Rehab: Info: Disciplineoccupational therapist Mode of Treatmentoccupational therapy; Partial co-tx with PT to maximize pt's mobility and safety. Time IN15:03 Time OUT15:56 Total Treatment [id number] Patient in ... at end of sessionbed, [...] sit to supine; rolling right Roll Left Beckham (Bed Mobility)Pt required assist to bend BLE at knees and to initiate turn at shoulders and hips, verbal cues for grasp on bed rail, technique, direction follow, and encouragement.; set up; verbal cues; maximum assist (25% patient effort); 2 person assist Roll Right Beckham (Bed Mobility)Pt required assist to bend BLE at knees and to initiate turn at shoulders and hips, verbal cues for grasp on bed rail, technique, direction follow, and encouragement.; set up; verbal cues; maximum assist (25% patient effort); 2 person assist Scoot/Bridge Beckham (Bed Mobility)boost HOB; set up; verbal cues; maximum assist (25% patient effort); 2 person assist Fygijt-zf-Eiy Beckham (Bed Mobility)HOB elevated; set up; verbal cues; maximum assist (25% patient effort); 2 person assist Ljq-bo-Hghcvo Beckham (Bed Mobility)HOB elevated; set up; verbal cues; maximum assist (25% patient effort); 2 person assist Assistive Device (Bed Mobility)bed rails; draw sheet Transfer Assessment/Interventionss it to stand transfer Sit-Stand Beckham (Transfers)set up; verbal cues; maximum assist (25% patient effort); x 2-3 assist Safety Issues Impacting Function (Mobility)ability to follow commands; awareness of need for assistance; insight into deficits/self awareness; judgment; problem solving Impairments Impacting Function (Mobility)balance; cognition; endurance/activity tolerance; pain; strength; postural/trunk control ADL: BADL Assessment/Interventionto ileting; feeding; grooming; lower body dressing; upper body dressing; bathing Beckham Level (Bathing)set up; verbal cues; moderate assist (50% patient effort); 1 person assist Comment (Bathing)anticipated due to impaired balance, strength, and pain. Beckham Level (Upper Body Dressing)set up; verbal cues; moderate assist (50% patient effort) Comment (Upper Body Dressing)anticipated due to impaired balance, strength, and pain. Beckham Level (Lower Body Dressing)don; socks; dependent (less than 25% patient effort) Position (Lower Body Dressing)supine Beckham Level (Grooming)set up; contact guard Comment (Grooming)anticipated due to impaired balance, strength, and pain. Beckham Level (Feeding)set up; modified independence Comment (Feeding)anticipated Beckham Level (Toileting)dependent (less than 25% patient effort); purewick Impairments, BADL Safety/Performancebalance ; cognition; endurance/activity tolerance; strength; trunk/postural control Cognitive Impairments, BADL Safety/Performanceawarene ss, need for assistance; insight into deficits/self awareness; judgment; problem solving/reasoning Motor: Sitting, Static (Balance)good balance SBA Sitting, Dynamic (Balance)fair balance CGA Evb-rl-Nqxwl (Balance)poor balance Max A x 2-3 - attempted Standing, Static (Balance)unable to balance Standing, Dynamic (Balance)unable to balance Balance ActivitiesPt sat EOB ~30 minutes with SBA/CGA for safety. Pt demonstrated good sitting balance and trunk control. Pt attempted STS transfers 3x with (more content not included)... Normal [facility] Daily Progress Note-Neurosur jinny 09-24-2021 Daily Progress Note-Neurosurgery Service: Neurosurgery Subjective Data: MORALES LEE is a 46 year old Female who is Hospital Day # 10 and POD #3 for posterior L4-L5 decompression;posterior L4-L5 arthrodesis. Objective Data: Objective Information: T PRBPSpO2 [id number]/5499% Date/Time09/23 20:4809/23 20:4809/23 20:4809/23 20:4809/23 20:48 Range(35.5C - 36.1C ) (66 - 75 ) (16 - 19 ) (90 - 118 )/ (54 - 75 ) (98% - 99% ) As of 23-Sep-2021 22:43:00, patient is on 2 L/min of oxygen via nasal cannula. ---- Intake and Output ----- Mn/Dy/Year TimeIntakeOutputNet Sep 22, 2021 10:00 [id number] Sep 22, 2021 2:00 [id number] Sep 22, 2021 6:00 [id number] The Intake and Output Totals for the last 24 hours are: IntakeOutputNet [id number] Physical Exam by System: Neurological: A&Ox3 RUE [...] the note. I personally evaluated the patient [id number] Comments/ Additional Findings Doing well. Kyphotic posture [...] for ambulation and PT for now and manager long term care if the weakness fails to improve over [...] to the (more content not included)... Normal [facility] MAGNESIUMon 09-24-2021 Magnesium [Mass/Vol] 1.71 mg/dL Normal 1.60 - 2.40 [facility] Comment on above: Performed By: #### A FPA3 #### [facility] [id number] [place] [address] Magnesium, Serumon Magnesium [Mass/Vol] 1.71 mg/dL See Below MG-G russelloeramu terraiza-Rosendo moura 6 [facility] Work Phone: Comment on above: Reference Range: 1.6 0 - 2.40 RENAL FUNCTION PANELon 09-24 Albumin [Mass/Vol] 2.6 g/dL Low 3.4 - 5.0 [facility] Comment on above: Performed By: #### R ENAL ####[id number] [place] [address] Anion gap [Moles/Vol] 10 mmol/L Normal 10 - 20 [facility] Comment on above: Performed By: #### R ENAL ####[id number] [place] [address] Calcium [Mass/Vol] 7.7 mg/dL Low 8.6 - 10.6 [facility] Comment on above: Performed By: #### R ENAL ####[id number] [place] [address] Chloride [Moles/Vol] 108 mmol/L High 98 - 107 [facility] Comment on above: Performed By: #### R ENAL ####[id number] [place] [address] Creatinine [Mass/Vol] 0.39 mg/dL Low 0.50 - 1.05 [facility] Comment on above: Performed By: #### R ENAL ####[id number] [place] [address] eGFR FEMALE >90 Normal >90 [facility] Comment on above: Result Comment: CALC ULATIONS OF ESTIMATED GFR ARE PERFORMED USING THE 2020 CKD-EPI STUDY REFIT EQUATION WITHOUT THE RACE VARIABLE FOR THE IDMS-TRACEABLE CREATININE METHODS. https://jasn.asnjournals.org/content//ASN.125 9691708 Performed By: #### R ENAL ####[id number] [place] [address] Glucose [Mass/Vol] 92 mg/dL Normal 74 - 99 [facility] Comment on above: Performed By: #### R ENAL ####[id number] [place] [address] HCO3 (Bld) [Moles/Vol] 29 mmol/L Normal 21 - 32 [facility] Comment on above: Performed By: #### R ENAL ####[id number] [place] [address] Phosphate [Mass/Vol] 3.3 mg/dL Normal 2.5 - 4.9 [facility] Comment on above: Result Comment: The performance characteristics of phosphorus testing in heparinized plasma have been validated by the individual laboratory site where testing is performed. Testing on heparinized plasma is not approved by the FDA; however, such approval is not necessary. Performed By: #### R ENAL ####[id number] [place] [address] Potassium [Moles/Vol] 3.9 mmol/L Normal 3.5 - 5.3 [facility] Comment on above: Performed By: #### R ENAL ####[id number] [place] [address] Sodium [Moles/Vol] 143 mmol/L Normal 136 - 145 [facility] Comment on above: Performed By: #### R ENAL ####[id number] [place] [address] Urea nitrogen [Mass/Vol] 5 mg/dL Low 6 - 23 [facility] Comment on above: Performed By: #### R ENAL ####[id number] [place] [address] Rehab Note-attemptedon 09-24 Rehab Note-attempted Rehab: Info: Mode of Treatmentattempted Time IN15:00 Reason Treatment Not Performedpatient/family declined treatment; Pt declined participation in OT treatment stating she was on a very important call that she needed to take. Electronic Signatures: Silvana Marshall (OT) (Signed 24-Sep-2021 15:29) Authored: Info Last Updated: 24-Sep-2021 15:29 by Silvana Marshall (OT) Normal [facility] Rehab Note-physical therapyo n 09-24-2021 [...] 24-Sep-2021 15:07 by Boone Broussard (PT) Normal [facility] Renal Function Panelon 09-24 Albumin [...] RACE VARIABLE FOR THE IDMS-TRACEABLE CREATININE METHODS.https://jasn.asnjournals.org/content/early /ASN.7734490329 CBCon 09-23-2021 Erythrocyte distribution width (RBC) [Ratio] 13.1 % Normal 11.5 - 14.5 [facility] Comment on above: Performed By: #### C BC ####[id number] [place] [address] Hematocrit (Bld) [Volume fraction] 30.5 % Low 36.0 - 46.0 [facility] Comment on above: Performed By: #### C BC ####[id number] [place] [address] Hemoglobin (Bld) [Mass/Vol] 9.9 g/dL Low 12.0 - 16.0 [facility] Comment on above: Performed By: #### C BC ####[id number] [place] [address] MCHC (RBC) [Mass/Vol] 32.5 g/dL Normal 32.0 - 36.0 [facility] Comment on above: Performed By: #### C BC ####[id number] [place] [address] MCV (RBC) [Entitic vol] 92 fL Normal 80 - 100 [facility] Comment on above: Performed By: #### C BC ####[id number] [place] [address] NUCLEATED RBC 0.0 /100 WBC Normal 0.0-0.0 [facility] Comment on above: Performed By: #### C BC ####[id number] [place] [address] Platelets (Bld) [#/Vol] 244 10*3/uL Normal 150 - 450 [facility] Comment on above: Performed By: #### C BC ####[id number] [place] [address] RBC 3.33 x10E12/L Low 4.00 - 5.20 [facility] Comment on above: Performed By: #### C BC ####[id number] [place] [address] WBC (Bld) [#/Vol] 8.6 10*3/uL Normal 4.4 - 11.3 [facility] Comment on above: Performed By: #### C BC ####[id number] [place] [address] CBC AND DIFFERENTIALon 09-23 % AUTOMATED IMMATURE GRAN 0.4 % Normal 0.0 - 0.9 [facility] Comment on above: Result Comment: Jaleesa ture Granulocyte Count (IG) includes promyelocytes, myelocytes and metamyelocytes but does not include bands. Percent differential counts (%) should be interpreted in the context of the absolute cell counts (cells/L). Performed By: #### C BC #### [facility] [address] [place] [address] Basophils (Bld) [#/Vol] 0.03 10*3/uL Normal 0.00 - 0.10 [facility] Comment on above: Performed By: #### C BC #### [facility] [address] [place] [address] Basophils/100 WBC (Bld) 0.4 % Normal 0.0 - 2.0 [facility] Comment on above: Performed By: #### C BC #### [facility] [address] [place] [address] Eosinophils (Bld) [#/Vol] 0.27 10*3/uL Normal 0.00 - 0.70 [facility] Comment on above: Performed By: #### C BC #### [facility] [address] [place] [address] Eosinophils/100 WBC (Bld) 3.6 % Normal 0.0 - 6.0 [facility] Comment on above: Performed By: #### C BC #### [facility] [address] [place] [address] Erythrocyte distribution width (RBC) [Ratio] 13.2 % Normal 11.5 - 14.5 [facility] Comment on above: Performed By: #### C BC #### [facility] [address] [place] [address] Hematocrit (Bld) [Volume fraction] 30.9 % Low 36.0 - 46.0 [facility] Comment on above: Performed By: #### C BC #### [facility] [address] [place] [address] Hemoglobin (Bld) [Mass/Vol] 10.4 g/dL Low 12.0 - 16.0 [facility] Comment on above: Performed By: #### C BC #### [facility] [address] [place] [address] Lymphocytes (Bld) [#/Vol] 2.41 10*3/uL Normal 1.20 - 4.80 [facility] Comment on above: Performed By: #### C BC #### [facility] [address] [place] [address] Lymphocytes/100 WBC (Bld) 31.9 % Normal 13.0 - 44.0 [facility] Comment on above: Performed By: #### C BC #### [facility] [address] [place] [address] MCHC (RBC) [Mass/Vol] 33.7 g/dL Normal 32.0 - 36.0 [facility] Comment on above: Performed By: #### C BC #### [facility] [address] [place] [address] MCV (RBC) [Entitic vol] 91 fL Normal 80 - 100 [facility] Comment on above: Performed By: #### C BC #### [facility] [address] [place] [address] Monocytes (Bld) [#/Vol] 0.49 10*3/uL Normal 0.10 - 1.00 [facility] Comment on above: Performed By: #### C BC #### [facility] [address] [place] [address] Monocytes/100 WBC (Bld) 6.5 % Normal 2.0 - 10.0 [facility] Comment on above: Performed By: #### C BC #### [facility] [address] [place] [address] Neutrophils (Bld) [#/Vol] 4.32 10*3/uL Normal 1.20 - 7.70 [facility] Comment on above: Performed By: #### C BC #### [facility] [address] [place] [address] Neutrophils/100 WBC (Bld) 57.2 % Normal 40.0 - 80.0 [facility] Comment on above: Performed By: #### C BC #### [facility] [address] [place] [address] NUCLEATED RBC 0.0 /100 WBC Normal 0.0-0.0 [facility] Comment on above: Performed By: #### C BC #### [facility] [address] [place] [address] Platelets (Bld) [#/Vol] 228 10*3/uL Normal 150 - 450 [facility] Comment on above: Performed By: #### C BC #### [facility] [address] [place] [address] RBC 3.39 x10E12/L Low 4.00 - 5.20 [facility] Comment on above: Performed By: #### C BC #### [facility] [address] [place] [address] WBC (Bld) [#/Vol] 7.6 10*3/uL Normal 4.4 - 11.3 [facility] Comment on above: Performed By: #### C BC #### [facility] [address] [place] [address] Complete Blood Count + Diffe vidya 09-23-2021 [...] 32.5 g/dL See Below MG- Gastroen terology-Rosendo ell [...] [Mass/Vol] 1.68 mg/dL Normal 1.60 - 2.40 [facility] Comment on above: Performed By: #### C BC #### [facility] [address] [place] [address] Magnesium, Serumon Magnesium [Mass/Vol] 1.68 mg/dL See Below MG-G astroen terology-[place]endo l[place] 6 I Work Phone: Comment on above: Reference Range: 1.6 0 - 2.40 No Panel Informationon 09-23 0.0 {/100_WBC} 0.0-0.0 MG-Gastroe n terology-Rosendo l[place] 6 [facility] Work Phone: Order Reconciliationon 09-23 Order Reconciliation Page 1 Discharge Reconciliation Document Reconciliation Type: Discharge requested on behalf of Emma Izaguirre (Advanced Practice Nurse) done by Emma Izaguirre ([facility]) Discharge - Partial Reconciliation: 23-Sep-2021 13:21 by: Emma Izaguirre ([facility]) Discharge - Partial Reconciliation: 24-Sep-2021 10:12 by: Emma Izaguirre ([facility]) Discharge - Partial Reconciliation: 30-Sep-2021 14:12 by: Concetta Shi ([facility]) Discharge - Partial Reconciliation: 30-Sep-2021 14:14 by: Concetta Shi ([facility]) Discharge - Reconciliation: 30-Sep-2021 14:24 by: Concetta Shi ([facility]) Discharge - Reset to Incomplete: 02-Oct-2021 15:36 by: Emma Izaguirre ([facility]) Discharge - Reconciliation: 02-Oct-2021 15:40 by: Emma Izaguirre ([facility]) Discharge - Reset to Incomplete: 02-Oct-2021 15:57 by: Emma Izaguirre ([facility]) Discharge - Reconciliation: 02-Oct-2021 15:58 by: Emma Izaguirre ([facility]) Home Medications EnteredHOME MEDICATIONS AT [...] not required (more content not included)... Normal [facility] PATH REVIEW-IMMUNOHEMATOLOGY on 09-23-2021 PATH REV-IMMUNOHEMOTOL LETA Normal [facility] Comment on above: Result Comment: [...] PATIENT. Performed By: #### A FPA3 #### [facility] [address] [place] [address] RENAL FUNCTION PANELon 09-23 Albumin [Mass/Vol] 2.7 g/dL Low 3.4 - 5.0 [facility] Comment on above: Performed By: #### V FPA3 #### [facility] [address] [place] [address] Anion gap [Moles/Vol] 10 mmol/L Normal 10 - 20 [facility] Comment on above: Performed By: #### V FPA3 #### [facility] [address] [place] [address] Calcium [Mass/Vol] 7.9 mg/dL Low 8.6 - 10.6 [facility] Comment on above: Performed By: #### V FPA3 #### [facility] [address] [place] [address] Chloride [Moles/Vol] 108 mmol/L High 98 - 107 [facility] Comment on above: Performed By: #### V FPA3 #### [facility] [address] [place] [address] Creatinine [Mass/Vol] 0.39 mg/dL Low 0.50 - 1.05 [facility] Comment on above: Performed By: #### V FPA3 #### [facility] [address] [place] [address] eGFR FEMALE >90 Normal >90 [facility] Comment on above: Result Comment: CALC ULATIONS OF ESTIMATED GFR ARE PERFORMED USING THE 2020 CKD-EPI STUDY REFIT EQUATION WITHOUT THE RACE VARIABLE FOR THE IDMS-TRACEABLE CREATININE METHODS. https://jasn.asnjournals.org/content/early/ASN.948 8615116 Performed By: #### V FPA3 #### [facility] [address] [place] [address] Glucose [Mass/Vol] 87 mg/dL Normal 74 - 99 [facility] Comment on above: Performed By: #### V FPA3 #### [facility] [address] [place] [address] HCO3 (Bld) [Moles/Vol] 29 mmol/L Normal 21 - 32 [facility] Comment on above: Performed By: #### V FPA3 #### [facility] [address] [place] [address] Phosphate [Mass/Vol] 2.7 mg/dL Normal 2.5 - 4.9 [facility] Comment on above: Result Comment: The performance characteristics of phosphorus testing in heparinized plasma have been validated by the individual laboratory site where testing is performed. Testing on heparinized plasma is not approved by the FDA; however, such approval is not necessary. Performed By: #### V FPA3 #### [facility] [address] [place] [address] Potassium [Moles/Vol] 3.6 mmol/L Normal 3.5 - 5.3 [facility] Comment on above: Performed By: #### V FPA3 #### [facility] [address] [place] [address] Sodium [Moles/Vol] 143 mmol/L Normal 136 - 145 [facility] Comment on above: Performed By: #### V FPA3 #### [facility] [address] [place] [address] Urea nitrogen [Mass/Vol] 9 mg/dL Normal 6 - 23 [facility] Comment on above: Performed By: #### V FPA3 #### [facility] [address] [place] [address] Rehab Note-individual therap yon 09-23-2021 Rehab Note-individual therapy Rehab: Info: Disciplinephysical therapist Mode of Treatmentphysical therapy; individual therapy Time IN14:50 Time OUT15:29 Total Treatment [id number] Patient in ... at end of sessionbed, [...] sit to supine; rolling right Roll Left Beckham (Bed Mobility)verbal cues; maximum assist (25% patient effort); 1 person assist Roll Right Beckham (Bed Mobility)maximum assist (25% patient effort); verbal cues; 1 person assist Scoot/Bridge Beckham (Bed Mobility)verbal cues; maximum assist (25% patient effort); 2 person assist; boost HOB Lbsrds-ub-Kyr Beckham (Bed Mobility)verbal cues; maximum assist (25% patient effort); 1 person assist Ove-xf-Urrztp Beckham (Bed Mobility)set up; verbal cues; maximum assist (25% patient effort); 1 person assist Assistive Device (Bed Mobility)bed rails; draw sheet Transfer Assessment/Interventionss it to stand transfer; stand to sit transfer Sit-Stand Beckham (Transfers)2 person assist; moderate assist (50% patient effort) Sit-Stand Assistive Device (Transfers)B arm-in-arm assist Stand-Sit Beckham (Transfers)2 person assist; moderate assist (50% patient [...] 23-Sep-2021 15:50 by Boone Broussard (PT) Normal [facility] Renal Function Panelon 09-23 Albumin [...] RACE VARIABLE FOR THE IDMS-TRACEABLE CREATININE METHODS.https://jasn.asnjournals.org/content/ /ASN.[email or web address] ANTIBODY IDENT.on 09-22-2021 ANTIBODY IDENT. Anti-E Normal [facility] Comment on above: Performed By: #### V FPA3 #### [facility] [address] [place] [address] CBCon 09-22-2021 Erythrocyte distribution width (RBC) [Ratio] 13.2 % Normal 11.5 - 14.5 [facility] Comment on above: Performed By: #### V FPA3 #### [facility] [address] [place] [address] Hematocrit (Bld) [Volume fraction] 30.6 % Low 36.0 - 46.0 [facility] Comment on above: Performed By: #### V FPA3 #### [facility] [address] [place] [address] Hemoglobin (Bld) [Mass/Vol] 10.2 g/dL Low 12.0 - 16.0 [facility] Comment on above: Performed By: #### V FPA3 #### [place] [id number] [place] [address] MCHC (RBC) [Mass/Vol] 33.3 g/dL Normal 32.0 - 36.0 [facility] Comment on above: Performed By: #### V FPA3 #### [facility] [address] [place] [address] MCV (RBC) [Entitic vol] 91 fL Normal 80 - 100 [facility] Comment on above: Performed By: #### V FPA3 #### [facility] [address] [place] [address] NUCLEATED RBC 0.0 /100 WBC Normal 0.0-0.0 [facility] Comment on above: Performed By: #### V FPA3 #### [facility] [address] [place] [address] Platelets (Bld) [#/Vol] 215 10*3/uL Normal 150 - 450 [facility] Comment on above: Performed By: #### V FPA3 #### [facility] [address] [place] [address] RBC 3.37 x10E12/L Low 4.00 - 5.20 [facility] Comment on above: Performed By: #### V FPA3 #### [facility] [address] [place] [address] WBC (Bld) [#/Vol] 9.6 10*3/uL Normal 4.4 - 11.3 [facility] Comment on above: Performed By: #### V FPA3 #### [facility] [address] [place] [address] CBC AND DIFFERENTIALon 09-22 % AUTOMATED IMMATURE GRAN 0.4 % Normal 0.0 - 0.9 [facility] Comment on above: Result Comment: Jaleesa ture Granulocyte Count (IG) includes promyelocytes, myelocytes and metamyelocytes but does not include bands. Percent differential counts (%) should be interpreted in the context of the absolute cell counts (cells/L). Performed By: #### C BCDF ####[id number] [place] [address] Basophils (Bld) [#/Vol] 0.02 10*3/uL Normal 0.00 - 0.10 [facility] Comment on above: Performed By: #### C BCDF ####[id number] [place] [address] Basophils/100 WBC (Bld) 0.2 % Normal 0.0 - 2.0 [facility] Comment on above: Performed By: #### C BCDF ####[id number] [place] [address] Eosinophils (Bld) [#/Vol] 0.04 10*3/uL Normal 0.00 - 0.70 [facility] Comment on above: Performed By: #### C BCDF ####[id number] [place] [address] Eosinophils/100 WBC (Bld) 0.4 % Normal 0.0 - 6.0 [facility] Comment on above: Performed By: #### C BCDF ####[id number] [place] [address] Erythrocyte distribution width (RBC) [Ratio] 13.2 % Normal 11.5 - 14.5 [facility] Comment on above: Performed By: #### C BCDF ####[id number] [place] [address] Hematocrit (Bld) [Volume fraction] 30.6 % Low 36.0 - 46.0 [facility] Comment on above: Performed By: #### C BCDF ####[id number] [place] [address] Hemoglobin (Bld) [Mass/Vol] 10.3 g/dL Low 12.0 - 16.0 [facility] Comment on above: Performed By: #### C BCDF ####[id number] [place] [address] Lymphocytes (Bld) [#/Vol] 2.19 10*3/uL Normal 1.20 - 4.80 [facility] Comment on above: Performed By: #### C BCDF ####[id number] [place] [address] Lymphocytes/100 WBC (Bld) 19.9 % Normal 13.0 - 44.0 [facility] Comment on above: Performed By: #### C BCDF ####[id number] [place] [address] MCHC (RBC) [Mass/Vol] 33.7 g/dL Normal 32.0 - 36.0 [facility] Comment on above: Performed By: #### C BCDF ####[id number] [place] [address] MCV (RBC) [Entitic vol] 90 fL Normal 80 - 100 [facility] Comment on above: Performed By: #### C BCDF ####[id number] [place] [address] Monocytes (Bld) [#/Vol] 0.71 10*3/uL Normal 0.10 - 1.00 [facility] Comment on above: Performed By: #### C BCDF ####[id number] [place] [address] Monocytes/100 WBC (Bld) 6.5 % Normal 2.0 - 10.0 [facility] Comment on above: Performed By: #### C BCDF ####[id number] [place] [address] Neutrophils (Bld) [#/Vol] 7.98 10*3/uL High 1.20 - 7.70 [facility] Comment on above: Performed By: #### C BCDF ####[id number] [place] [address] Neutrophils/100 WBC (Bld) 72.6 % Normal 40.0 - 80.0 [facility] Comment on above: Performed By: #### C BCDF ####[id number] [place] [address] NUCLEATED RBC 0.0 /100 WBC Normal 0.0-0.0 [facility] Comment on above: Performed By: #### C BCDF ####[id number] [place] [address] Platelets (Bld) [#/Vol] 242 10*3/uL Normal 150 - 450 [facility] Comment on above: Performed By: #### C BCDF ####[id number] [place] [address] RBC 3.39 x10E12/L Low 4.00 - 5.20 [facility] Comment on above: Performed By: #### C BCDF ####[id number] [place] [address] WBC (Bld) [#/Vol] 11.0 10*3/uL Normal 4.4 - 11.3 [facility] Comment on above: Performed By: #### C BCDF ####[id number] [place] [address] Complete Blood Count + Diffe vidya 09-22-2021 [...] Differential 2.19 {x10E9/L} See Below [facility] Work Phone: Comment on above: Reference Range: 1.2 0 - 4.80 Complete Blood Count + Differential 7.98 {x10E9/L} above high threshold See Below [facility] Work Phone: Comment on above: Reference Range: 1.2 0 - 7.70 Cult, Urineon 09-22-2021 Bacteria identified Cx Nom (U) [facility] Work Phone: Daily Progress Note - Psychi atryon 09-22-2021 Daily Progress Note - Psychiatry Subjective Data: MORALES LEE is a 46 year old Female who is Hospital Day # 8. Pt seen lying in bed this morning, with at bedside. 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 Objective: Objective Information: T PRBPSpO2 [id number]/5792% Date/Time1 0:001/18 8:001/18 8:001/18 8:001/18 8:00 Range(36.3C [...] Fair. Medications: Continuous Medications ------- 1. HYDROmorphone TOP HAT BODY MAKER 25 mg/ NaCL 0.9% 50 mL: 2.6 mg/hr IV TOP HAT BODY MAKER 2. Sodium Chloride 0.9% Infusion: 1000 mL [...] from Suboxone (more content not included)... Normal [facility] Daily Progress Note-Neurosjudy stearns 09-22-2021 Daily Progress Note-Neurosurgery Service: Neurosurgery Subjective Data: MORALES LEE is a 46 year old Female who is Hospital Day # 8 and POD #1 for posterior L4-L5 decompression;posterior L4-L5 arthrodesis. Objective Data: Objective Information: T PRBPSpO2 [id number]/5895% Date/Time09/22 0:001/18 0:00118 0:00118 0:001/18 0:00 Range(36.2C - 36.8C ) (82 - 109 ) (12 - 20 ) (85 - 132 )/ (49 - 89 ) (94% - 100% ) As of 21-Sep-2021 17:00:00, patient is on 4 L/min of oxygen via nasal cannula. Pain reported at 09/21 16:33: 5 = Moderate ---- Intake and Output ----- Mn/Dy/Year TimeIntakeOutputNet Sep 20, 2021 10:00 [id number] Sep 20, 2021 6:00 [id number] The Intake and Output Totals for the last 24 hours are: IntakeOutputNet [id number] Physical Exam by System: Neurological: A&Ox3 RUE [...] Chronic pain recs- intra-op ketamine, meloxicam post-op, TOP HAT BODY MAKER until good PT eval, Suboxone as OP [...] the note. I personally evaluated the patient [id number] Electronic Signatures: Fidel Maciel (Resident)) (Signed 22-Sep-2021 00:35) Authored: Service, Subjective Data, Objective Data, Assessment and Plan, Note Completion Lex Frederick) (Signed 22-Sep-2021 10:31) Authored: Note Completion Co-Signer: Service, Subjective Data, Objective Data, Assessment and Plan, Note Completion Last Updated: 22-Sep-2021 10:31 by Lex Frederick) Normal [facility] Discharge [id number] 022 Discharge Profile2 Discharge Orders: Anticipated Discharge Date: Anticipated Discharge [id number] Problem List: Additional Dx: Spinal stenosis of [...] fusion. Please call your Neurosurgeon's office (Dr. Fredreick [phone]) if you have any questions. -If you [...] or twist. 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 Wound Care: Inspect your incision daily [...] taking Acetamin (more content not included)... Normal [facility] LACTATEon 09-22-2021 Lactate [Moles/Vol] 0.8 mmol/L Normal 0.4 - 2.0 [facility] Comment on above: Result Comment: Trina puncture immediately after or during the administration of Metamizole may lead to falsely low results. Testing should be performed immediately prior to Metamizole dosing. Performed By: #### C #### [facility] [id number] [place] [address] Laboratory - Hematology and Cell countson 09-22-2021 [...] {/100_WBC} 0.0-0.0 [facility]astroe n [facility]ology-[facility] gre[facility] 6 [facility] Work Phone: OT Evaluation v2-occupationa l therapy - co-eval with PT to mon 09-22-2021 OT Evaluation v2-occupational therapy - co-eval with PT to Rehab: Info: Mode of Treatmentoccupational therapy; co-eval with PT to maximize pt's mobility and safety. Time IN10:50 Time OUT11:40 Total Treatment [id number] Patient in ... at end of sessionbed, 3 railings up; alarm on Communicated with ... at end of sessionbedside nurse Patient Effortgood Symptoms Noted During/After Treatmentfatigue; increased pain Patient Profile Reviewedyes Onset of Illness/Injury or Date of [id number] Reason for Referral-09/18/21: s/p exploration of spinal [...] EOB sitting. Pertinent History of Current Functional Dgirtmq27 y/o with hx of HTN, C6-7 ACDF, [...] TubesIV; triple lumen; telemetry; urethral catheter indwelling; TOP HAT BODY MAKER pump, DAVOL drain, wound vac O2 Deliverynasal cannula; 4L Pre Treatment Patient Positionsupine Pre Treatment Blood Pressure Kzmiicmq18 mmHg Pre Treatment Diastolic (mm Hg)46 mmHg Pre Treatment Heart Rate (beats/min)67 Pre Treatment Respiratory Rate (breaths/min)19 Pre Treatment SpO2 (%)96 % Pre Treatment Oxygen Deliverysupplemental O2 Pre Treatment CommentsMAP 56 During Treatment Patient Positionsitting During Treatment Blood Pressure Lsyeowcw92 mmHg During Treatment Diastolic (mm Hg)77 mmHg [...] to sit; sit to supine Roll Left Beckham (Bed Mobility)set up; verbal cues; 2 person assist; Pt required assist to bend BLE at (more content not included)... Normal [facility] PATH REVIEW-IMMUNOHEMATOLOGY on 09-22-2021 PATH REV-IMMUNOHEMOTOL ZURDO Normal [facility] Comment on above: Result Comment: [...] THIS PATIENT. Performed By: #### C #### [facility] [address] [place] [address] PT Evaluation e8-ov-yyteoulb t - co-treatment with OT to maxion 09-22-2021 PT Evaluation o6-dp-stpubailo - co-treatment with OT to maxi Rehab: Info: Mode of Treatmentphysical therapy; co-treatment; co-treatment with OT to maximize safety, mobility and ADL participation Time IN10:50 Time OUT11:40 Total Treatment [id number] Patient in ... at end of sessionbed, 3 railings up; alarm on Communicated with ... at end of sessionbedside nurse Patient Effortgood Symptoms Noted During/After Treatmentfatigue; increased pain Patient Profile Reviewedyes Onset of Illness/Injury or Date of [id number] Reason for Referral-09/18/21: s/p exploration of spinal [...] TubesIV; triple lumen; telemetry; urethral catheter indwelling; TOP HAT BODY MAKER pump, DAVOL drain, wound vac O2 Deliverynasal cannula; 4L Pre Treatment Patient Positionsupine Pre Treatment Blood Pressure Zvbzknti78 mmHg Pre Treatment Diastolic (mm Hg)46 mmHg Pre Treatment Heart Rate (beats/min)67 Pre Treatment SpO2 (%)96 % Pre Treatment Oxygen Deliverysupplemental O2 During Treatment Patient Positionsitting During Treatment Blood Pressure Ntncklqm03 mmHg During Treatment Diastolic (mm Hg)77 mmHg [...] sit to supine; rolling right Roll Left Beckham (Bed Mobility)verbal cues; 2 person assist; Pt required assist to bend BLE at knees and to initiate turn at shoulders and hips, verbal cues for grasp on bed rail, technique, direction follow, and encouragement.; maximum assist (25% patient effort) Roll Right Beckham (Bed Mobility)2 person assist; maximum assist (25% patient effort); verbal cues Scoot/Bridge Beckham (Bed Mobility)verbal cues; maximum assist (25% patient effort); 2 person assist; boost HOB Yjvrwe-og-Sbr Beckham (Bed Mobility)verbal cues; maximum assist (25% patient effort); 1 person assist Pot-tu-Zwnhsh Beckham (Bed Mobility)set up; verbal cues; maximum assist (25% patient effort); 1 person assist Assistive Device (Bed Mobility)bed rails; draw sheet Impairments Impacting Function (Mobility)balance; cognition; endurance/activity tolerance; pain; strength; postural/trunk control; motor control Motor: Sitting, Static (Balance)SBA Sitting, Dynamic (Balance)CGA Wnx-wh-Sgcvk (Balance)MADELIN this visit. Pt hypotensive Sensory: Pre-Treatment Pain Rating7/10 Post-Treatment Pain Rating7/10 Comment, Pre/Post Treatment PainPt reported pain throughout buttocks and back, utilized TOP HAT BODY MAKER pump as needed. Pain LimitationFunctional mobility limited due pain; ADLs/IADLs limited due to pain; Participation limited by pain; RN or team was notified of limitations due to p (more content not included)... Normal [facility] RENAL FUNCTION PANELon 09-22 Albumin [Mass/Vol] 2.7 g/dL Low 3.4 - 5.0 [facility] Comment on above: Performed By: #### C BC #### [facility] [address] [place] [address] Anion gap [Moles/Vol] 10 mmol/L Normal 10 - 20 [facility] Comment on above: Performed By: #### C BC #### [place] [address] [place] [address] Calcium [Mass/Vol] 7.8 mg/dL Low 8.6 - 10.6 [facility] Comment on above: Performed By: #### C BC #### [place] [address] [place] [address] Chloride [Moles/Vol] 105 mmol/L Normal 98 - 107 [facility] Comment on above: Performed By: #### C BC #### [place] [address] [place] [address] Creatinine [Mass/Vol] 0.49 mg/dL Low 0.50 - 1.05 [facility] Comment on above: Performed By: #### C BC #### [place] [address] [place] [address] eGFR FEMALE >90 Normal >90 [facility] Comment on above: Result Comment: CALC ULATIONS OF ESTIMATED GFR ARE PERFORMED USING THE 2020 CKD-EPI STUDY REFIT EQUATION WITHOUT THE RACE VARIABLE FOR THE IDMS-TRACEABLE CREATININE METHODS. https://jasn.asnjournals.org/content/early//ASN.169 5504791 Performed By: #### C BC #### [facility] [address] [place] [address] Glucose [Mass/Vol] 93 mg/dL Normal 74 - 99 [facility] Comment on above: Performed By: #### C BC #### [facility] [address] [place] [address] HCO3 (Bld) [Moles/Vol] 29 mmol/L Normal 21 - 32 [facility] Comment on above: Performed By: #### C BC #### [facility] [address] [place] [address] Phosphate [Mass/Vol] 2.4 mg/dL Low 2.5 - 4.9 [facility] Comment on above: Result Comment: The performance characteristics of phosphorus testing in heparinized plasma have been validated by the individual laboratory site where testing is performed. Testing on heparinized plasma is not approved by the FDA; however, such approval is not necessary. Performed By: #### C BC #### [facility] [address] [place] [address] Potassium [Moles/Vol] 4.3 mmol/L Normal 3.5 - 5.3 [facility] Comment on above: Performed By: #### C BC #### [facility] [address] [place] [address] Sodium [Moles/Vol] 140 mmol/L Normal 136 - 145 [facility] Comment on above: Performed By: #### C BC #### [facility] [address] [place] [address] Urea nitrogen [Mass/Vol] 9 mg/dL Normal 6 - 23 [facility] Comment on above: Performed By: #### C BC #### [facility] [address] [place] [address] Renal Function Panelon 09-22 Albumin BCP dye [...] RACE VARIABLE FOR THE IDMS-TRACEABLE CREATININE METHODS.https://jasn.asnjournals.org/content/early /ASN.0913723617 UA MICROSCOPICon 09-22-2021 RBC 6 /HPF Abnormal 0-5 [facility] Comment on above: Performed By: #### C BC #### [facility] [address] [place] [address] SQUAMOUS EPITH. CELLS 1 /HPF Normal [facility] Comment on above: Performed By: #### C BC #### [facility] [address] [place] [address] WBC 8 /HPF Abnormal 0-5 [facility] Comment on above: Performed By: #### C BC #### [facility] [address] [place] [address] URINALYSIS WITH CULTURE IF I NDICATEDon 09-22-2021 Appearance (U) CLEAR Normal CLEAR [facility] Comment on above: Performed By: #### U ARFX ####[id number] [place] [address] Bilirubin Ql (U) Negative Normal NEGATIVE [facility] Comment on above: Performed By: #### U ARFX ####[id number] [place] [address] Color (U) MIRANDA Normal STRAW,YELL OW [facility] Comment on above: Performed By: #### U ARFX ####[id number] [place] [address] Glucose Ql (U) Negative Normal NEGATIVE [facility] Comment on above: Performed By: #### U ARFX ####[id number] [place] [address] Hemoglobin Ql (U) Negative Normal NEGATIVE [facility] Comment on above: Performed By: #### U ARFX ####[id number] [place] [address] Ketones Ql (U) 20 (1+) Abnormal NEGATIVE [facility] Comment on above: Performed By: #### U ARFX ####[id number] [place] [address] Leukocyte esterase Test strip Ql (U) Negative Normal NEGATIVE [facility] Comment on above: Performed By: #### U ARFX ####[id number] [place] [address] Nitrite Ql (U) Negative Normal NEGATIVE [facility] Comment on above: Performed By: #### U ARFX ####[id number] [place] [address] pH (U) 5.0 [pH] Normal 5.0 - 8.0 [facility] Comment on above: Performed By: #### U ARFX ####[id number] [place] [address] Protein Ql (U) 30 (1+) Abnormal NEGATIVE [facility] Comment on above: Performed By: #### U ARFX ####[id number] [place] [address] Specific gravity (U) [Rel density] 1.040 High 1.005 - 1.035 [facility] Comment on above: Performed By: #### U ARFX ####[id number] Urobilinogen (U) [Mass/Vol] 2.0 mg/dL High 0.0 - 1.9 [facility] Comment on above: Result Comment: [...] positive urobilinogen. Performed By: #### U ARFX ####[id number] [id number] Lab Specimen Source Normal [facility] Comment on above: Performed By: #### U ARFX ####[id number] [id number] Performed By: #### C BC #### [facility] [id number] [place] [id number] Color (U) MIRANDA See Below [facility] Work Phone: Comment on above: SOURCE: Reference Ra nge: STRAW,YELLOW Glucose Ql (U) Negative NEGATIVE [facility] Work Phone: Ketones Ql (U) 20 (1+) Abnormal NEGATIVE [facility] Work Phone: Leukocyte esterase Test strip Ql (U) Negative NEGATIVE [facility] Work Phone: pH (U) 5.0 [pH] 5.0 [...] CULTURE,BACTERIALon URINE CULTURE,BACTERIAL PATIENT: Fay LEE LOCATION: [place] [address] BILL#: [id number] : 71 AGE: SEX: F ORDERED BY: EMMA IZAGUIRRE SOURCE: URINE COLLECTED: 09/22/21 12:59 ANTIBIOTICS AT [facility].: RECEIVED : 09/22/21 14:59 SITE: R E S U L T S URINE CULTURE,BACTERIAL FINAL 09/23/21 09:04 NO SIGNIFICANT GROWTH. Normal [facility] Comment on above: Performed By: #### C BC #### [facility] [address] [place] [address] Urinalysis, Microscopicon Urinalysis, Microscopic 1 {/HPF} M [facility] Work Phone: Urinalysis, Microscopic 6 {/HPF} Abnormal 0-5 [facility] Work Phone: Urinalysis, Microscopic 8 {/HPF} Abnormal 0-5 [facility] Work Phone: Comment on above: SOURCE: CBCon 09-21-2021 Erythrocyte distribution width (RBC) [Ratio] 13.1 % Normal 11.5 - 14.5 [facility] Comment on above: Performed By: #### R ENAL #### [facility] [address] [place] [address] Hematocrit (Bld) [Volume fraction] 34.5 % Low 36.0 - 46.0 [facility] Comment on above: Performed By: #### R ENAL #### [facility] [address] [place] [address] Hemoglobin (Bld) [Mass/Vol] 11.4 g/dL Low 12.0 - 16.0 [facility] Comment on above: Performed By: #### R ENAL #### [facility] [address] [place] [address] MCHC (RBC) [Mass/Vol] 33.0 g/dL Normal 32.0 - 36.0 [facility] Comment on above: Performed By: #### R ENAL #### [facility] [address] [place] [address] MCV (RBC) [Entitic vol] 91 fL Normal 80 - 100 [facility] Comment on above: Performed By: #### R ENAL #### [facility] [address] [place] [address] NUCLEATED RBC 0.0 /100 WBC Normal 0.0-0.0 [facility] Comment on above: Performed By: #### R ENAL #### [facility] [address] [place] [address] Platelets (Bld) [#/Vol] 269 10*3/uL Normal 150 - 450 [facility] Comment on above: Performed By: #### R ENAL #### [facility] [address] [place] [address] RBC 3.81 x10E12/L Low 4.00 - 5.20 [facility] Comment on above: Performed By: #### R ENAL #### [facility] [address] [place] [address] WBC (Bld) [#/Vol] 14.6 10*3/uL High 4.4 - 11.3 [facility] Comment on above: Performed By: #### R ENAL #### [facility] [address] [place] [address] Erythrocyte distribution width (RBC) [Ratio] 13.2 % Normal 11.5 - 14.5 [facility] Comment on above: Performed By: #### R ENAL #### [facility] [address] [place] [address] Hematocrit (Bld) [Volume fraction] 35.8 % Low 36.0 - 46.0 [facility] Comment on above: Performed By: #### R ENAL #### [facility] [address] [place] [address] Hemoglobin (Bld) [Mass/Vol] 11.9 g/dL Low 12.0 - 16.0 [facility] Comment on above: Performed By: #### R ENAL #### [facility] [address] [place] [address] MCHC (RBC) [Mass/Vol] 33.2 g/dL Normal 32.0 - 36.0 [facility] Comment on above: Performed By: #### R ENAL #### [facility] [address] [place] [address] MCV (RBC) [Entitic vol] 91 fL Normal 80 - 100 [facility] Comment on above: Performed By: #### R ENAL #### [facility] [address] [place] [address] NUCLEATED RBC 0.0 /100 WBC Normal 0.0-0.0 [facility] Comment on above: Performed By: #### R ENAL #### [facility] [address] [place] [address] Platelets (Bld) [#/Vol] 215 10*3/uL Normal 150 - 450 [facility] Comment on above: Performed By: #### R ENAL #### [facility] [address] [place] [address] RBC 3.93 x10E12/L Low 4.00 - 5.20 [facility] Comment on above: Performed By: #### R ENAL #### [facility] [address] [place] [address] WBC (Bld) [#/Vol] 14.8 10*3/uL High 4.4 - 11.3 [facility] Comment on above: Performed By: #### R ENAL #### [facility] [address] [place] [address] Daily Progress Note-Nuha stearns 09-21-2021 Daily Progress Note-Neurosurgery Service: Neurosurgery Subjective Data: MORALES LEE is a 46 year old Female who is Hospital Day # 7 and POD #3 for 1. Exploration of spinal fusion;2. Reduction of L4/5 dislocation;2. L5-pelvis instrumented fusion with posterolateral arthrodesis;4. Extension of instrumentation with multiple bobby construct and side connectors. Objective Data: Objective Information: T PRBPSpO2 Value37.334083217/8495% Date/Time09/20 15: 4: 4: 4: 4:00 Range(36.9C [...] ----- Mn/Dy/Year TimeIntakeOutputNet Sep 19, 2021 10:00 [id number] Sep 19, 2021 6:00 [id number] The Intake and Output Totals for the last 24 hours are: IntakeOutputNet [id number] Physical Exam by System: Neurological: A&Ox3 RUE [...] Chronic pain recs- intra-op ketamine, meloxicam post-op, TOP HAT BODY MAKER until good PT eval, Suboxone as OP [...] the following: I personally evaluated the patient [id number] Comments/ Additional Findings The patient has been [...] MRI was performed and with the patient budget consultant the medical necessity of considering lumbar laminectomy [...] without removing (more content not included)... Normal [facility] Laboratory - Blood bankon ABO [...] above high threshold 4.4 - 11.3 [facility]astroen ter[facility]-Ros[facility] moura 6 I Work Phone: NR MRI L-SPINE WOon 09-21-19 22 NR MRI L-SPINE WO Patient Name: MORALES LEE STUDY: MRI T-SPINE WO; MRI L-SPINE WO; 09/20/2021 10:40 pm; 09/20/2021 10:42 pm INDICATION: postop foot weakness, Lie Flat: Yes, Pre Med: No . COMPARISON: MRI December 24, [address] of the lumbar spine September 18, 2021 ACCESSION NUMBER(S): [id number]; [id number] ORDERING CLINICIAN: DEVANTE NUNEZ TECHNIQUE: Sagittal axial [...] S1-2. Electronically signed by: DO Andrei MESSER [facility] NR MRI T-SPINE WOon 09-21-19 NR MRI T-SPINE WO Patient Name: MORALES LEE STUDY: MRI T-SPINE WO; MRI L-SPINE WO; 09/20/2021 10:40 pm; 09/20/2021 10:42 pm INDICATION: postop foot weakness, Lie Flat: Yes, Pre Med: No . COMPARISON: MRI December 24, [address] of the lumbar spine September 18, 2021 ACCESSION NUMBER(S): [id number]; [id number] ORDERING CLINICIAN: DEVANTE NUNEZ TECHNIQUE: Sagittal axial [...] Electronically signed by: NATALIA WALL, DO Normal [facility] No Panel Informationon 09-21 0.0 [...] Preop Checklist Preop Checklist: Preop Checklist: Arrival [id number] Arrival Time11:00 Procedure Typere-exploration of spine Temperature C36.2 degrees C Temperature F97.1 degrees F Heart Rate91 beats per minute Respiratory Rate18 breath per minute Blood Pressure Zwvvhpwq366 mm/Hg Blood Pressure Wsamzbbms94 mm/Hg COVID 19 Results in Last 7 [...] Communication: Language / CommunicationEnglish Electronic Signatures: Linh Buchanan) (Signed 21-Sep-2021 11:17) Authored: Preop Checklist Last Updated: 21-Sep-2021 11:17 by Linh Buchanan (MERA) Normal [facility] REQUEST-LEUKOREDUCED RED ANJU LSon 09-21-2021 REQUEST-LEUKOREDUCED RED CELLS ORDER RECD Normal [facility] Comment on above: Performed By: #### A FPA3 #### [facility] [address] [place] [address] TYPE + SCREENon 09-21-2021 ABO TYPE O Normal [facility] Comment on above: Performed By: #### A FPA3 #### [facility] [address] [place] [address] RH TYPE Positive Normal [facility] Comment on above: Performed By: #### A FPA3 #### [facility] [address] [place] [id number] ABO TYPE Canceled Normal [facility] Comment on above: Order Comment: VENECIA ESPINO, 09/21/2021 05:08TEST TYPE + SCREEN WAS CANCELLED, 09/21/2021 05:06 NO PHLEB ID ON TUBE. Result Comment: EULA ESPINO, 09/21/2021 05:08 Performed By: #### A FPA3 #### [facility] [address] [place] [address] RH TYPE Canceled Normal [facility] Comment on above: Order Comment: VENECIA ESPINO, 09/21/2021 05:08TEST TYPE + SCREEN WAS CANCELLED, 09/21/2021 05:06 NO PHLEB ID ON TUBE. Result Comment: EULA ESPINO, 09/21/2021 05:08 Performed By: #### A FPA3 #### [facility] [address] [place] [address] CBCon 09-20-2021 Erythrocyte distribution width (RBC) [Ratio] 13.2 % Normal 11.5 - 14.5 [facility] Comment on above: Performed By: #### C BC #### [facility] [address] [place] [address] Hematocrit (Bld) [Volume fraction] 30.8 % Low 36.0 - 46.0 [facility] Comment on above: Performed By: #### C BC #### [facility] [address] [place] [address] Hemoglobin (Bld) [Mass/Vol] 9.8 g/dL Low 12.0 - 16.0 [facility] Comment on above: Performed By: #### C BC #### [facility] [address] [place] [address] MCHC (RBC) [Mass/Vol] 31.8 g/dL Low 32.0 - 36.0 [facility] Comment on above: Performed By: #### C BC #### [facility] [address] [place] [address] MCV (RBC) [Entitic vol] 93 fL Normal 80 - 100 [facility] Comment on above: Performed By: #### C BC #### [facility] [address] [place] [address] NUCLEATED RBC 0.0 /100 WBC Normal 0.0-0.0 [facility] Comment on above: Performed By: #### C BC #### [facility] [address] [place] [address] Platelets (Bld) [#/Vol] 224 10*3/uL Normal 150 - 450 [facility] Comment on above: Performed By: #### C BC #### [facility] [address] [place] [address] RBC 3.32 x10E12/L Low 4.00 - 5.20 [facility] Comment on above: Performed By: #### C BC #### [facility] [address] [place] [address] WBC (Bld) [#/Vol] 12.1 10*3/uL High 4.4 - 11.3 [facility] Comment on above: Performed By: #### C BC #### [facility] [address] [place] [address] Daily Progress Note-Nuha stearns 09-20-2021 Daily Progress Note-Neurosurgery Service: Neurosurgery Subjective Data: MROALES LEE is a 46 year old Female who is Hospital Day # 6 and POD #2 for 1. Exploration of spinal fusion;2. Reduction of L4/5 dislocation;2. L5-pelvis instrumented fusion with posterolateral arthrodesis;4. Extension of instrumentation with multiple bobby construct and side connectors. Objective Data: Objective Information: T PRBPSpO2 Value36.0177942/5095% Date/Time09/19 16: 1:341 16: 1:341 1:34 Range(36.7C - 36.7C ) (84 - 110 ) (18 - 18 ) (82 - 118 )/ (50 - 97 ) (94% - 97% ) As of 19-Sep-2021 08:00:00, patient is on 2 L/min of oxygen via nasal cannula. ---- Intake and Output ----- Mn/Dy/[facility] Sep 18, 2021 10:00 [id number] The Intake and Output Totals for the [...] chronic pain recs- intra-op ketamine, meloxicam post-op, TOP HAT BODY MAKER until good PT eval, Suboxone as OP [...] Updated: 21-Sep-2021 11:28 by Perez Carlisle) Normal [facility] Laboratory - Hematology and Cell [...] 20-Sep-2021 12:25 by Carole Carlos (OT) Normal [facility] PT Evaluation v2-attemptedon 09-20-2021 PT Evaluation v2-attempted Rehab: Info: Mode of Treatmentattempted Time IN12:00 Evaluation Not PerformedPer RN pt not appropriate for therapy, pt continues to have low BP and plan to receive blood, will hold and reattempt as appropriate Electronic Signatures: Kaykay Yoo (PT) (Signed 20-Sep-2021 12:42) Authored: Info Last Updated: 20-Sep-2021 12:42 by Kaykay Yoo (PT) Normal [facility] REQUEST-LEUKOREDUCED RED ANJU LSon 09-20-2021 REQUEST-LEUKOREDUCED RED CELLS ORDER RECD Normal [facility] Comment on above: Performed By: #### R ENAL #### [facility] [address] [place] [address] CBCon 09-19-2021 Erythrocyte distribution width (RBC) [Ratio] 12.4 % Normal 11.5 - 14.5 [facility] Comment on above: Performed By: #### R ENAL #### [facility] [address] [place] [address] Hematocrit (Bld) [Volume fraction] 38.3 % Normal 36.0 - 46.0 [facility] Comment on above: Performed By: #### R ENAL #### [facility] [address] [place] [address] Hemoglobin (Bld) [Mass/Vol] 13.4 g/dL Normal 12.0 - 16.0 [facility] Comment on above: Performed By: #### R ENAL #### [facility] [address] [place] [address] MCHC (RBC) [Mass/Vol] 35.0 g/dL Normal 32.0 - 36.0 [facility] Comment on above: Performed By: #### R ENAL #### [facility] [address] [place] [address] MCV (RBC) [Entitic vol] 85 fL Normal 80 - 100 [facility] Comment on above: Performed By: #### R ENAL #### [facility] [address] [place] [address] NUCLEATED RBC 0.0 /100 WBC Normal 0.0-0.0 [facility] Comment on above: Performed By: #### R ENAL #### [facility] [address] [place] [address] Platelets (Bld) [#/Vol] 326 10*3/uL Normal 150 - 450 [facility] Comment on above: Performed By: #### R ENAL #### [facility] [address] [place] [address] RBC 4.51 x10E12/L Normal 4.00 - 5.20 [facility] Comment on above: Performed By: #### R ENAL #### [facility] [address] [place] [address] WBC (Bld) [#/Vol] 20.5 10*3/uL High 4.4 - 11.3 [facility] Comment on above: Performed By: #### R ENAL #### [facility] [address] [place] [address] CBC AND DIFFERENTIALon 09-19 % AUTOMATED IMMATURE GRAN 0.6 % Normal 0.0 - 0.9 [facility] Comment on above: Result Comment: Jaleesa ture Granulocyte Count (IG) includes promyelocytes, myelocytes and metamyelocytes but does not include bands. Percent differential counts (%) should be interpreted in the context of the absolute cell counts (cells/L). Performed By: #### V FPA3 #### [facility] [address] [place] [address] Basophils (Bld) [#/Vol] 0.03 10*3/uL Normal 0.00 - 0.10 [facility] Comment on above: Performed By: #### V FPA3 #### [facility] [address] [place] [address] Basophils/100 WBC (Bld) 0.1 % Normal 0.0 - 2.0 [facility] Comment on above: Performed By: #### V FPA3 #### [facility] [address] [place] [address] Eosinophils (Bld) [#/Vol] 0.01 10*3/uL Normal 0.00 - 0.70 [facility] Comment on above: Performed By: #### V FPA3 #### [facility] [address] [place] [address] Eosinophils/100 WBC (Bld) 0.0 % Normal 0.0 - 6.0 [facility] Comment on above: Performed By: #### V FPA3 #### [facility] [address] [place] [address] Erythrocyte distribution width (RBC) [Ratio] 12.9 % Normal 11.5 - 14.5 [facility] Comment on above: Performed By: #### V FPA3 #### [facility] [address] [place] [address] Hematocrit (Bld) [Volume fraction] 38.3 % Normal 36.0 - 46.0 [facility] Comment on above: Performed By: #### V FPA3 #### [facility] [address] [place] [address] Hemoglobin (Bld) [Mass/Vol] 12.7 g/dL Normal 12.0 - 16.0 [facility] Comment on above: Performed By: #### V FPA3 #### [facility] [address] [place] [address] Lymphocytes (Bld) [#/Vol] 2.89 10*3/uL Normal 1.20 - 4.80 [facility] Comment on above: Performed By: #### V FPA3 #### [facility] [address] [place] [address] Lymphocytes/100 WBC (Bld) 13.5 % Normal 13.0 - 44.0 [facility] Comment on above: Performed By: #### V FPA3 #### [facility] [address] [place] [address] MCHC (RBC) [Mass/Vol] 33.2 g/dL Normal 32.0 - 36.0 [facility] Comment on above: Performed By: #### V FPA3 #### [facility] [address] [place] [address] MCV (RBC) [Entitic vol] 89 fL Normal 80 - 100 [facility] Comment on above: Performed By: #### V FPA3 #### [facility] [address] [place] [address] Monocytes (Bld) [#/Vol] 1.23 10*3/uL High 0.10 - 1.00 [facility] Comment on above: Performed By: #### V FPA3 #### [facility] [address] [place] [address] Monocytes/100 WBC (Bld) 5.7 % Normal 2.0 - 10.0 [facility] Comment on above: Performed By: #### V FPA3 #### [facility] [address] [place] [address] Neutrophils (Bld) [#/Vol] 17.16 10*3/uL High 1.20 - 7.70 [facility] Comment on above: Performed By: #### V FPA3 #### [facility] [address] [place] [address] Neutrophils/100 WBC (Bld) 80.1 % Normal 40.0 - 80.0 [facility] Comment on above: Performed By: #### V FPA3 #### [facility] [address] [place] [address] NUCLEATED RBC 0.0 /100 WBC Normal 0.0-0.0 [facility] Comment on above: Performed By: #### V FPA3 #### [facility] [address] [place] [address] Platelets (Bld) [#/Vol] 401 10*3/uL Normal 150 - 450 [facility] Comment on above: Performed By: #### V FPA3 #### [facility] [address] [place] [address] RBC 4.28 x10E12/L Normal 4.00 - 5.20 [facility] Comment on above: Performed By: #### V FPA3 #### [facility] [address] [place] [address] WBC (Bld) [#/Vol] 21.5 10*3/uL High 4.4 - 11.3 [facility] Comment on above: Performed By: #### V FPA3 #### [facility] [address] [place] [address] COAGULATION SCREENon 022 aPTT Coag (Bld) [Time] 29 s Normal 26 - 39 [facility] Comment on above: Result Comment: Note new reference range as of 08/04/2021 at 10:00am. Performed By: #### R ENAL #### [facility] [address] [place] [address] PT Coag (PPP) [Time] 11.5 s Normal 9.8 - 13.4 [facility] Comment on above: Result Comment: Note new reference range as of 08/04/2021 at 10:00am. Performed By: #### R ENAL #### [facility] [address] [place] [address] PT, INR 1.0 Normal 0.9 - 1.1 [facility] Comment on above: Performed By: #### R ENAL #### [facility] [address] [place] [address] Complete Blood Count + Diffe rentialon 09-19-2021 [...] g/dL See Below [facility] Work Phone: Monocytes/100 WBC (Bld) 5.7 % [...] 4.4 - 11.3 [facility]astro[facility] 6 [facility] Work Phone: Complete Blood Count + Differential 0.0 % 0.0 - 6.0 [facility]astroen [facility]ology-[place] [facility] 6 [facility] Work Phone: Complete Blood Count + Differential 0.6 % 0.0 - 0.9 [facility] Differential 0.01 {x10E9/L} See Below MG-Gastroen terology-Rosendo lwTivix 6 [employer] Work Phone: Comment on above: Reference Range: 0.0 0 - 0.70 Complete Blood Count + Differential 1.23 {x10E9/L} above high threshold See Below [facility]-Gastroen terology-Rosendo ethology 6 [employer] Work Phone: Comment on above: Reference Range: 0.1 0 - 1.00 Complete Blood Count + Differential 2.89 {x10E9/L} See Below [facility]-Gastroen terology-Rosendo ethology 6 [employer] Work Phone: Comment on above: Reference Range: 1.2 0 - 4.80 Complete Blood Count + Differential 17.16 {x10E9/L} above high threshold See Below [facility]-Gastroen terology-Rosendo ethology 6 [employer] Work Phone: Comment on above: Reference Range: [...] connectors. Objective Data: Objective Information: T PRBPSpO2 Value36.01682300/8596% Date/Time09/18 17: 17: 17: 17: 17:40 Range(36.4C [...] ----- Mn/Dy/Year TimeIntakeOutputNet Sep 17, 2021 10:00 [id number] The Intake and Output Totals for the last 24 hours are: IntakeOutputNet [id number] Physical Exam by System: Neurological: A&Ox3 RUE D5, B5, T5, HG5, IO5 LUE D4+, B4+, T4+, HG4+, IO5 RLE HF 4+, KE4+, PF5, DF5 (pain limited) LLE HF 4-, KE4-, PF4, DF5 Recent Lab Results: Results: Recent Arterial Blood Gas Results 09/18/2021 11:48 [id number] 24 h range: ( 219 - 224 ) pH7.44 24 h range: ( 7.44 - 7.45 ) cPI095 24 h range: ( 37 - 40 ) HV8499 24 h range: ( 100 - 100 ) Base Excess2.8 24 h range: ( 1.8 - 2.8 ) Wiyyauqdunq93.2 24 h range: ( 25.7 - 27.2 [...] the note. I personally evaluated the patient [id number] Comments/ Additional Findings Patients postoperative CT scan [...] Assessment an (more content not included)... Normal [facility] Laboratory - Coagulationon 0 09-19-2021 [...] [Mass/Vol] 1.59 mg/dL Low 1.60 - 2.40 [facility] Comment on above: Performed By: #### R ENAL #### [facility] [address] [place] [id number] PT Evaluation v2-attemptedon 09-19-2021 PT Evaluation v2-attempted Rehab: Info: Mode of Treatmentattempted Time IN11:37 Time OUT11:50 Total Treatment Txfzlsk24 Evaluation Not PerformedHistory obtained, BP assessed in supine 79/54mmHg, RN notified and redone with 71/51mmHg, will hold PT eval at this time and reattempt as medically appropriate Electronic Signatures: Kaykay Yoo (PT) (Signed 19-Sep-2021 12:14) Authored: Info Last Updated: 19-Sep-2021 12:14 by Kaykay Yoo (PT) Normal [facility] RENAL FUNCTION PANELon 09-19 Albumin [Mass/Vol] 3.4 g/dL Normal 3.4 - 5.0 [facility] Comment on above: Performed By: #### A FPA3 #### [facility] [address] [place] [address] Anion gap [Moles/Vol] 18 mmol/L Normal 10 - 20 [facility] Comment on above: Performed By: #### A FPA3 #### [facility] [address] [place] [address] Calcium [Mass/Vol] 8.3 mg/dL Low 8.6 - 10.6 [facility] Comment on above: Performed By: #### A FPA3 #### [facility] [address] [place] [address] Chloride [Moles/Vol] 100 mmol/L Normal 98 - 107 [facility] Comment on above: Performed By: #### A FPA3 #### [facility] [address] [place] [address] Creatinine [Mass/Vol] 0.60 mg/dL Normal 0.50 - 1.05 [facility] Comment on above: Performed By: #### A FPA3 #### [facility] [address] [place] [address] eGFR FEMALE >90 Normal >90 [facility] Comment on above: Result Comment: CALC ULATIONS OF ESTIMATED GFR ARE PERFORMED USING THE 2020 CKD-EPI STUDY REFIT EQUATION WITHOUT THE RACE VARIABLE FOR THE IDMS-TRACEABLE CREATININE METHODS. https://jasn.asnjournals.org/content/early//ASN.520 8962496 Performed By: #### A FPA3 #### [facility] [address] [place] [address] Glucose [Mass/Vol] 82 mg/dL Normal 74 - 99 [facility] Comment on above: Performed By: #### A FPA3 #### [facility] [address] [place] [address] HCO3 (Bld) [Moles/Vol] 26 mmol/L Normal 21 - 32 [facility] Comment on above: Performed By: #### A FPA3 #### [facility] [address] [place] [address] Phosphate [Mass/Vol] 2.8 mg/dL Normal 2.5 - 4.9 [facility] Comment on above: Result Comment: The performance characteristics of phosphorus testing in heparinized plasma have been validated by the individual laboratory site where testing is performed. Testing on heparinized plasma is not approved by the FDA; however, such approval is not necessary. Performed By: #### A FPA3 #### [facility] [address] [place] [address] Potassium [Moles/Vol] 4.5 mmol/L Normal 3.5 - 5.3 [facility] Comment on above: Performed By: #### A FPA3 #### [facility] [address] [place] [address] Sodium [Moles/Vol] 139 mmol/L Normal 136 - 145 [facility] Comment on above: Performed By: #### A FPA3 #### [facility] [address] [place] [address] Urea nitrogen [Mass/Vol] 9 mg/dL Normal 6 - 23 [facility] Comment on above: Performed By: #### A FPA3 #### [facility] [address] [place] [address] Albumin [Mass/Vol] 3.6 g/dL Normal 3.4 - 5.0 [facility] Comment on above: Performed By: #### R ENAL #### [facility] [address] [place] [address] Anion gap [Moles/Vol] 13 mmol/L Normal 10 - 20 [facility] Comment on above: Performed By: #### R ENAL #### [facility] [address] [place] [address] Calcium [Mass/Vol] 8.9 mg/dL Normal 8.6 - 10.6 [facility] Comment on above: Performed By: #### R ENAL #### [facility] [address] [place] [address] Chloride [Moles/Vol] 100 mmol/L Normal 98 - 107 [facility] Comment on above: Performed By: #### R ENAL #### [facility] [address] [place] [address] Creatinine [Mass/Vol] 0.51 mg/dL Normal 0.50 - 1.05 [facility] Comment on above: Performed By: #### R ENAL #### [facility] [address] [place] [address] eGFR FEMALE >90 Normal >90 [facility] Comment on above: Result Comment: CALC ULATIONS OF ESTIMATED GFR ARE PERFORMED USING THE 2020 CKD-EPI STUDY REFIT EQUATION WITHOUT THE RACE VARIABLE FOR THE IDMS-TRACEABLE CREATININE METHODS. https://jasn.asnjournals.org/content/ASN.575 4863787 Performed By: #### R ENAL #### [facility] [address] [place] [address] Glucose [Mass/Vol] 123 mg/dL High 74 - 99 [facility] Comment on above: Performed By: #### R ENAL #### [facility] [address] [place] [address] HCO3 (Bld) [Moles/Vol] 28 mmol/L Normal 21 - 32 [facility] Comment on above: Performed By: #### R ENAL #### [facility] [address] [place] [address] Phosphate [Mass/Vol] 2.8 mg/dL Normal 2.5 - 4.9 [facility] Comment on above: Result Comment: The performance characteristics of phosphorus testing in heparinized plasma have been validated by the individual laboratory site where testing is performed. Testing on heparinized plasma is not approved by the FDA; however, such approval is not necessary. Performed By: #### R ENAL #### [facility] [address] [place] [address] Potassium [Moles/Vol] 4.3 mmol/L Normal 3.5 - 5.3 [facility] Comment on above: Performed By: #### R ENAL #### [facility] [address] [place] [address] Sodium [Moles/Vol] 137 mmol/L Normal 136 - 145 [facility] Comment on above: Performed By: #### R ENAL #### [facility] [address] [place] [address] Urea nitrogen [Mass/Vol] 8 mg/dL Normal 6 - 23 [facility] Comment on above: Performed By: #### R ENAL #### [facility] [address] [place] [address] Renal Function Panelon 09-19 Albumin BCP dye [...] - 145 [facility] [facility] Work Phone: Urea nitrogen [Mass/Vol] 9 mg/dL 6 - 23 [facility] [facility] I Work Phone: Renal Function Panel >90 >90 [facility] astroen terology-[place] [facility] I Work Phone: Comment on above: CALCULATIONS OF IVY MATED GFR ARE PERFORMED USING THE 2020 CKD-EPI STUDY REFIT EQUATION WITHOUT THE RACE VARIABLE FOR THE IDMS-TRACEABLE CREATININE METHODS.https://jasn.asnjournals.org/content/early /ASN.[email or web address] ANTIBODY IDENT.on 09-18-2021 ANTIBODY IDENT. Anti-E Normal [facility] Comment on above: Performed By: #### A FPA3 #### [facility] [address] [place] [address] ARTERIAL FULL PANELon 2021 Anion gap [Moles/Vol] 5 mmol/L Low 10 - 25 [facility] Comment on above: Performed By: #### A FPA3 ####[id number] [place] [address] BASE EXCESS-BLOOD 2.8 mmol/L Normal -2.0 - 3.0 [facility] Comment on above: Performed By: #### A FPA3 ####[id number] [place] [address] BICARB, CALCULATED 27.2 mmol/L High 22.0 - 26.0 [facility] Comment on above: Performed By: #### A FPA3 ####[id number] [place] [address] CALCIUM,IONIZED 1.20 mmol/L Normal 1.10 - 1.33 [facility] Comment on above: Performed By: #### A FPA3 ####[id number] [place] [address] Chloride [Moles/Vol] 106 mmol/L Normal 98 - 107 [facility] Comment on above: Performed By: #### A FPA3 ####[id number] [place] [address] Glucose [Mass/Vol] 149 mg/dL High 74 - 99 [facility] Comment on above: Performed By: #### A FPA3 ####[id number] [place] [address] Hematocrit (Bld) [Volume fraction] 38.0 % Normal 36.0 - 46.0 [facility] Comment on above: Performed By: #### A FPA3 ####[id number] [place] [address] HGB,CALCULATED 12.9 g/dL Normal 12.0 - 16.0 [facility] Comment on above: Performed By: #### A FPA3 ####[id number] [place] [address] Lactate [Moles/Vol] 0.9 mmol/L Normal 0.4 - 2.0 [facility] Comment on above: Performed By: #### A FPA3 ####[id number] [place] [address] Oxygen (Bld) [Partial pressure] 219 mm[Hg] High 85 - 95 [facility] Comment on above: Performed By: #### A FPA3 ####[id number] [place] [address] PATIENT TEMPERATURE 37.0 degrees C Normal [facility] Comment on above: Result Comment: NOTE : PATIENT RESULTS ARE NOT CORRECTED FOR TEMPERATURE. Performed By: #### A FPA3 ####[id number] [place] [address] PCO2 40 mmHg Normal 38 - 42 [facility] Comment on above: Performed By: #### A FPA3 ####[id number] [place] [address] pH (Bld) 7.44 [pH] High 7.38 - 7.42 [facility] Comment on above: Performed By: #### A FPA3 ####[id number] [place] [address] Potassium [Moles/Vol] 4.4 mmol/L Normal 3.5 - 5.3 [facility] Comment on above: Performed By: #### A FPA3 ####[id number] [place] [address] SO2 100 % Normal 94 - 100 [facility] Comment on above: Performed By: #### A FPA3 ####[id number] [place] [address] Sodium [Moles/Vol] 134 mmol/L Low 136 - 145 [facility] Comment on above: Performed By: #### A FPA3 ####[id number] [place] [address] Anion gap [Moles/Vol] 7 mmol/L Low 10 - 25 [facility] Comment on above: Performed By: #### A FPA3 #### [facility] [address] [place] [address] BASE EXCESS-BLOOD 1.8 mmol/L Normal -2.0 - 3.0 [facility] Comment on above: Performed By: #### A FPA3 #### [facility] [address] [place] [address] BICARB, CALCULATED 25.7 mmol/L Normal 22.0 - 26.0 [facility] Comment on above: Performed By: #### A FPA3 #### [facility] [address] [place] [address] CALCIUM,IONIZED 1.20 mmol/L Normal 1.10 - 1.33 [facility] Comment on above: Performed By: #### A FPA3 #### [facility] [address] [place] [address] Chloride [Moles/Vol] 105 mmol/L Normal 98 - 107 [facility] Comment on above: Performed By: #### A FPA3 #### [facility] [address] [place] [address] Glucose [Mass/Vol] 174 mg/dL High 74 - 99 [facility] Comment on above: Performed By: #### A FPA3 #### [facility] [address] [place] [address] Hematocrit (Bld) [Volume fraction] 37.0 % Normal 36.0 - 46.0 [facility] Comment on above: Performed By: #### A FPA3 #### [facility] [address] [place] [address] HGB,CALCULATED 12.6 g/dL Normal 12.0 - 16.0 [facility] Comment on above: Performed By: #### A FPA3 #### [facility] [address] [place] [address] Lactate [Moles/Vol] 1.1 mmol/L Normal 0.4 - 2.0 [facility] Comment on above: Performed By: #### A FPA3 #### [facility] [address] [place] [address] Oxygen (Bld) [Partial pressure] 224 mm[Hg] High 85 - 95 [facility] Comment on above: Performed By: #### A FPA3 #### [facility] [address] [place] [address] PATIENT TEMPERATURE 37.0 degrees C Normal [facility] Comment on above: Result Comment: NOTE : PATIENT RESULTS ARE NOT CORRECTED FOR TEMPERATURE. Performed By: #### A FPA3 #### [facility] [address] [place] [address] PCO2 37 mmHg Low 38 - 42 [facility] Comment on above: Performed By: #### A FPA3 #### [facility] [address] [place] [address] pH (Bld) 7.45 [pH] High 7.38 - 7.42 [facility] Comment on above: Performed By: #### A FPA3 #### [facility] [address] [place] [address] Potassium [Moles/Vol] 3.9 mmol/L Normal 3.5 - 5.3 [facility] Comment on above: Performed By: #### A FPA3 #### [facility] [address] [place] [address] SO2 100 % Normal 94 - 100 [facility] Comment on above: Performed By: #### A FPA3 #### [facility] [address] [place] [address] Sodium [Moles/Vol] 134 mmol/L Low 136 - 145 [facility] Comment on above: Performed By: #### A FPA3 #### [facility] [address] [place] [address] CT L Spine without Contrasto n 09-18-2021 CT Lumbar spine limited WO contrast Normal [facility] 6 [facility] Work Phone: Daily Progress Note-Anesthes claudine 09-18-2021 Daily Progress Note-Anesthesiology Service: Anesthesiology Subjective Data: MORALES LEE is a 46 year old Female who is Hospital Day # 4 and POD #0 for 1. Exploration of spinal fusion;2. Reduction of L4/5 dislocation;2. L5-pelvis instrumented fusion with posterolateral arthrodesis;4. Extension of instrumentation with multiple bobby construct and side connectors. Objective Data: Objective Information: T PRBPSpO2 [id number]/4391% Date/Time09/18 6: 5: 5: 5: 5:56 Range(37C [...] Recent Arterial Blood Gas Results 09/18/2021 11:48 [id number] 24 h range: ( 219 - 224 ) pH7.44 24 h range: ( 7.44 - 7.45 ) yHS682 24 h range: ( 37 - 40 ) VD5385 24 h range: ( 100 - 100 ) Base Excess2.8 24 h range: ( 1.8 - 2.8 ) Vcnsqalvdtj45.2 24 h range: ( 25.7 - 27.2 ) Assessment and Plan: Code Status: Code StatusFull Code Electronic Signatures: Bryan Mora) (Signed 18-Sep-2021 14:47) Authored: Service, Subjective Data, Objective Data, Assessment and Plan, Note Completion Last Updated: 18-Sep-2021 14:47 by Bryan Mora) Normal [facility] Daily Progress Note-Nuha stearns 09-18-2021 Daily Progress Note-Neurosurgery Service: Neurosurgery Subjective Data: MORALES LEE is a 46 year old Female who is Hospital Day # 4. Objective Data: Objective Information: T PRBPSpO2 [id number]/4391% Date/Time09/18 6: 5: 5: 5: 5:56 Range(36.6C [...] ----- Mn/Dy/Year TimeIntakeOutputNet Sep 17, 2021 10:00 [id number] Sep 17, 2021 2:00 [id number] The Intake and Output Totals for the [...] the note. I personally evaluated the patient [id number] Electronic Signatures: Fidel Maciel (Resident)) (Signed 18-Sep-2021 06:55) Authored: Service, Subjective Data, Objective Data, Assessment and Plan, Note Completion Lex Frederick) (Signed 19-Sep-2021 10:18) Authored: Note Completion Co-Signer: Service, Subjective Data, Objective Data, Assessment and Plan, Note Completion Last Updated: 19-Sep-2021 10:18 by Lex Frederick) Normal [facility] Laboratory - Chemistry and C [...] dated 10/07/2020. MRI dated 12/11/2020 ACCESSION NUMBER(S): [id number] ORDERING CLINICIAN: ANGELO JUAREZ TECHNIQUE: Thin cut [...] as stated. This study was interpreted at [facility], [place], [place]. Electronically signed by: BOONE LAO MD Normal [facility] No Panel Informationon 09-18 0.0 [...] Respiratory Rate15 breath per minute Blood Pressure Oteqicdy72 mm/Hg Blood Pressure Mfjjdffux44 mm/Hg COVID 19 Results in Last 7 [...] 18-Sep-2021 06:59 by Lian Zuleta (SANAZ) Normal [facility] Radiologyon 09-18-2021 XR Chest Single [...] RACE VARIABLE FOR THE IDMS-TRACEABLE CREATININE METHODS.https://jasn.asnjournals.org/content/early/ /ASN.7184274060 TH CHEST; 1 VIEWon 2 TH CHEST; 1 VIEW Patient Name: MORALES LEE STUDY: CHEST; 1 VIEW; 09/18/2021 2:38 pm INDICATION: s/p central line placement (right IJ double lumen) . COMPARISON: Radiograph dated 09/15/2021 ACCESSION NUMBER(S): [id number] ORDERING CLINICIAN: BRYAN MORA FINDINGS: Right IJ [...] Electronically signed by: LORELEI JOHNSTON MD Normal [facility] VENOUS FULL PANELon 09-18-19 Anion gap [Moles/Vol] 6 mmol/L Low 10 - 25 [facility] Comment on above: Performed By: #### V FPA3 #### [facility] [address] [place] [address] BASE EXCESS-BLOOD 3.9 mmol/L High -2.0 - 3.0 [facility] Comment on above: Performed By: #### V FPA3 #### [facility] [address] [place] [address] BICARB, CALCULATED 28.5 mmol/L High 22.0 - 26.0 [facility] Comment on above: Performed By: #### V FPA3 #### [facility] [address] [place] [address] CALCIUM,IONIZED 1.17 mmol/L Normal 1.10 - 1.33 [facility] Comment on above: Performed By: #### V FPA3 #### [facility] [address] [place] [address] Chloride [Moles/Vol] 103 mmol/L Normal 98 - 107 [facility] Comment on above: Performed By: #### V FPA3 #### [facility] [address] [place] [address] Glucose [Mass/Vol] 188 mg/dL High 74 - 99 [facility] Comment on above: Performed By: #### V FPA3 #### [facility] [address] [place] [address] Hematocrit (Bld) [Volume fraction] 39.0 % Normal 36.0 - 46.0 [facility] Comment on above: Performed By: #### V FPA3 #### [facility] [address] [place] [address] HGB,CALCULATED 13.3 g/dL Normal 12.0 - 16.0 [facility] Comment on above: Performed By: #### V FPA3 #### [facility] [address] [place] [address] Lactate [Moles/Vol] 1.2 mmol/L Normal 0.4 - 2.0 [facility] Comment on above: Performed By: #### V FPA3 #### [facility] [address] [place] [address] Oxygen (Bld) [Partial pressure] 56 mm[Hg] High 35 - 45 [facility] Comment on above: Performed By: #### V FPA3 #### [facility] [address] [place] [address] PATIENT TEMPERATURE 37.0 degrees C Normal [facility] Comment on above: Result Comment: NOTE : PATIENT RESULTS ARE NOT CORRECTED FOR TEMPERATURE. Performed By: #### V FPA3 #### [facility] [address] [place] [address] PCO2 42 mmHg Normal 41 - 51 [facility] Comment on above: Performed By: #### V FPA3 #### [facility] [address] [place] [address] pH (Bld) 7.44 [pH] High 7.33 - 7.43 [facility] Comment on above: Performed By: #### V FPA3 #### [facility] [address] [place] [address] Potassium [Moles/Vol] 4.1 mmol/L Normal 3.5 - 5.3 [facility] Comment on above: Performed By: #### V FPA3 #### [facility] [address] [place] [address] SO2 91 % High 45 - 75 [facility] Comment on above: Performed By: #### V FPA3 #### [facility] [address] [place] [address] Sodium [Moles/Vol] 133 mmol/L Low 136 - 145 [facility] Comment on above: Performed By: #### V FPA3 #### [address] [place] [address] CORONAVIRUS 2019, SCREEN ASY MPTOMATICon 09-17-2021 SARS-CoV-2 (COVID-19) RNA ADRIÁN+probe Ql (Unsp spec) Not detected Normal Not Detected [facility] Comment on above: Result Comment: . This test has received [facility] Emergency Use Authorization (EUA) and has been verified by [facility] ([facility]). This test is only authorized for the duration of time that circumstances exist to justify the authorization of the emergency use of in vitro diagnostic tests for the detection of SARS-CoV-2 virus and/or diagnosis of COVID-19 infection under section 564(b)(1) of the Act, 21 U.S.C. 360bbb-3(b)(1), unless the authorization is terminated or revoked sooner. [facility] is certified under CLIA-88 as qualified to perform high complexity testing. Testing is performed in the [facility] located at [address] [place] [address]. SARS-CoV-2/Flu/RSV Multiplex Test: Fact sheet for providers: https://www.fda.gov/media/123773/download Fact sheet for patients: https://www.fda.gov/media/297422/download Performed By: #### C OVSC ####[id number] [facility] [place] [address] Lab Specimen Source Nasal, Nasopharyngeal Normal [facility] Comment on above: Performed By: #### C OVSC ####[id number] [facility] [place] [address] Coronavirus 2019 RNA by PCR, Screening Asymptomticon 09-17-2021 Coronavirus 2019 RNA by PCR, Screening Asymptomtic Not detected Normal See Below [facility]-Gastroen [facility]ology-[facility] 6 I Work Phone: Comment on above: SOURCE: Nasal, Nasop haryngealReference Range: Not Detected.This test has received FDA Emergency Use Authorization (EUA) and has been verified by [facility] ([facility]). This test is only authorized for the duration of time that circumstances exist to justify the authorization of the emergency use of in vitro diagnostic tests for the detection of SARS-CoV-2 virus and/or diagnosis of COVID-19 infection under section 564(b)(1) of the Act, 21 U.S.C. 360bbb-3(b)(1), unless the authorization is terminated or revoked sooner. [facility] is certified under CLIA-88 as qualified to perform high complexity testing. Testing is performed in the [facility] located at [address] [place] [address].SARS-CoV-2/Flu/RSV Multiplex Test: Fact sheet for providers: https://www.fda.gov/media/712592/downloadFact sheet for patients: https://www.fda.gov/media/308100/download Covid 19 Resultson 2 SARS-CoV-2 (COVID-19) RNA [...] or Naproxen (Aleve) can also be used. Pnjn-kco-yvnmnhk cough and cold medicines can be used according to the instructions on the package. Some vaor-owf-bwaqtjw medicines also contain acetaminophen. Make sure you [...] water are not available, use alcohol-based hand airways control specialist. Avoid touching your eyes, nose, and [...] 24 mariella (more content not included)... 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 Pt is interested [...] he has been working (cardoza at a [employer]), but she looks forward to his arrival [...] her suboxone. Objective: Objective Information: T PRBPSpO2 Value36.52136919/9095% Date/Time09/17 4: 10: 10: 10: 10:00 Range(35.7C - 36.6C ) (81 - 89 ) (10 - 23 ) (73 - 117 )/ (43 - 90 ) (91% - 96% ) As of 17-Sep-2021 08:00:00, patient is on 3 L/min of oxygen via nasal cannula. Pain reported at 09/17 8:00: 8 = Severe ---- Intake and Output ----- Mn/Dy/Year TimeIntakeOutputNet Sep 17, 2021 6:00 [id number] Sep 16, 2021 2:00 [id number] The Intake and Output Totals for the last 24 hours are: IntakeOutputNet [id number] Mental Status Exam: General: Awake, lying in [...] a Da (more content not included)... Normal [facility] Daily Progress Note-Neurosjudy stearns 09-17-2021 Daily Progress Note-Neurosurgery Service: Neurosurgery Subjective Data: MORALES LEE is a 46 year old Female who is Hospital Day # 3. Objective Data: Objective Information: T PRBPSpO2 Value35.3309239/4393% Date/Time09/16 18:5409/16 18:5409/16 18:5409/16 18:5409/16 18:54 Range(35.7C - 36.4C ) (81 - 91 ) (15 - 24 ) (87 - 118 )/ (43 - 84 ) (91% - 96% ) As of 16-Sep-2021 18:54:00, patient is on 2 L/min of oxygen via nasal cannula. Pain reported at 09/16 16:34: 10 = Severe ---- Intake and Output ----- Mn/Dy/Year TimeIntakeOutputNet Sep 16, 2021 2:00 [id number] Physical Exam by System: Neurological: A&Ox3 RUE [...] the note. I personally evaluated the patient [id number] Comments/ Additional Findings I again explained to [...] Updated: 19-Sep-2021 10:16 by Lex Frederick) Normal [facility] HCG,URINEon 09-17-2021 Beta HCG ( test) Ql (U) Negative Normal Negative [facility] Comment on above: Performed By: #### A FPA3 #### [facility] [address] [place] [address] Laboratory - Blood bankon ABO group Nom (Bld) O [facility]-Ga stroen terology-[place] [facility] [facility] Work Phone: Blood group antibody investigation (P/RBC) [Interp] Anti-E [facility] Work Phone: Blood group antibody screen Ql Positive [facility] Work Phone: Rh immune globulin screen (Bld) [Interp] Positive [facility]Gastroe n [facility]ology-[place] [facility] Work Phone: No Panel Informationon 09-17 ORDER RECD [facility] Work Phone: Path Review Immunohematology on 09-17-2021 Path Review Immunohematology LeeanneSENohemi [facility] Work Phone: [...] 09-17-2021 REQUEST-LEUKOREDUCED RED CELLS ORDER RECD Normal [facility] Comment on above: Performed By: #### O ELECTRICAL HARDWARE ENGINEER #### [facility] [address] [place] [address] TYPE + SCREENon 09-17-2021 ABO TYPE O Normal [facility] Comment on above: Performed By: #### T +S #### [facility] [address] [place] [address] RH TYPE Positive Normal [facility] Comment on above: Performed By: #### T +S #### [facility] [address] [place] [address] Urine Teston 09-17 HCG ( test) Ql (U) Negative Negative [facility]ology-[place] [facility] 6 [facility] Work Phone: BNPon 09-16-2021 Natriuretic peptide B (Bld) [Mass/Vol] 37 pg/mL Normal 0 - 99 [facility] Comment on above: Result Comment: [...] information. Performed By: #### A FPA3 #### [facility] [address] [place] [id number] CBC AND DIFFERENTIALon 09-16 % AUTOMATED IMMATURE GRAN 0.5 % Normal 0.0 - 0.9 [facility] Comment on above: Result Comment: Jaleesa ture Granulocyte Count (IG) includes promyelocytes, myelocytes and metamyelocytes but does not include bands. Percent differential counts (%) should be interpreted in the context of the absolute cell counts (cells/L). Performed By: #### C BCDF ####[id number] [place] [address] Basophils (Bld) [#/Vol] 0.04 10*3/uL Normal 0.00 - 0.10 [facility] Comment on above: Performed By: #### C BCDF ####[id number] [place] [address] Basophils/100 WBC (Bld) 0.5 % Normal 0.0 - 2.0 [facility] Comment on above: Performed By: #### C BCDF ####[id number] [place] [address] Eosinophils (Bld) [#/Vol] 0.26 10*3/uL Normal 0.00 - 0.70 [facility] Comment on above: Performed By: #### C BCDF ####[id number] [place] [address] Eosinophils/100 WBC (Bld) 3.0 % Normal 0.0 - 6.0 [facility] Comment on above: Performed By: #### C BCDF ####[id number] [place] [address] Erythrocyte distribution width (RBC) [Ratio] 13.0 % Normal 11.5 - 14.5 [facility] Comment on above: Performed By: #### C BCDF ####[id number] [place] [address] Hematocrit (Bld) [Volume fraction] 42.7 % Normal 36.0 - 46.0 [facility] Comment on above: Performed By: #### C BCDF ####[id number] [place] [address] Hemoglobin (Bld) [Mass/Vol] 14.1 g/dL Normal 12.0 - 16.0 [facility] Comment on above: Performed By: #### C BCDF ####[id number] [place] [address] Lymphocytes (Bld) [#/Vol] 3.17 10*3/uL Normal 1.20 - 4.80 [facility] Comment on above: Performed By: #### C BCDF ####[id number] [place] [address] Lymphocytes/100 WBC (Bld) 37.2 % Normal 13.0 - 44.0 [facility] Comment on above: Performed By: #### C BCDF ####[id number] [place] [address] MCHC (RBC) [Mass/Vol] 33.0 g/dL Normal 32.0 - 36.0 [facility] Comment on above: Performed By: #### C BCDF ####[id number] [place] [address] MCV (RBC) [Entitic vol] 91 fL Normal 80 - 100 [facility] Comment on above: Performed By: #### C BCDF ####[id number] [place] [address] Monocytes (Bld) [#/Vol] 0.47 10*3/uL Normal 0.10 - 1.00 [facility] Comment on above: Performed By: #### C BCDF ####[id number] [place] [address] Monocytes/100 WBC (Bld) 5.5 % Normal 2.0 - 10.0 [facility] Comment on above: Performed By: #### C BCDF ####[id number] [place] [address] Neutrophils (Bld) [#/Vol] 4.55 10*3/uL Normal 1.20 - 7.70 [facility] Comment on above: Performed By: #### C BCDF ####[id number] [place] [address] Neutrophils/100 WBC (Bld) 53.3 % Normal 40.0 - 80.0 [facility] Comment on above: Performed By: #### C BCDF ####[id number] [place] [address] NUCLEATED RBC 0.0 /100 WBC Normal 0.0-0.0 [facility] Comment on above: Performed By: #### C BCDF ####[id number] [place] [address] Platelets (Bld) [#/Vol] 278 10*3/uL Normal 150 - 450 [facility] Comment on above: Performed By: #### C BCDF ####[id number] [place] [address] RBC 4.70 x10E12/L Normal 4.00 - 5.20 [facility] Comment on above: Performed By: #### C BCDF ####[id number] [place] [address] WBC (Bld) [#/Vol] 8.5 10*3/uL Normal 4.4 - 11.3 [facility] Comment on above: Performed By: #### C BCDF ####[id number] [place] [address] COAGULATION SCREENon 022 aPTT Coag (Bld) [Time] 31 s Normal 26 - 39 [facility] Comment on above: Result Comment: Note new reference range as of 08/04/2021 at 10:00am. Performed By: #### V FPA3 #### [facility] [address] [place] [address] PT Coag (PPP) [Time] 11.6 s Normal 9.8 - 13.4 [facility] Comment on above: Result Comment: Note new reference range as of 08/04/2021 at 10:00am. Performed By: #### V FPA3 #### [facility] [address] [place] [address] PT, INR 1.0 Normal 0.9 - 1.1 [facility] Comment on above: Performed By: #### V FPA3 #### [facility] [address] [place] [address] Clinical Event Note-ADMISSIO N CLARIFICATIONon 09-16-2021 Clinical [...] and monitoring for withdrawal. Provider/Team Contact Info-Pager [phone] Electronic Signatures: Sharmin Guaman (GUEST RELATIONS REPRESENTATIVE-MALWARE ANALYST) (Signed 16-Sep-2021 12:07) Authored: Clinical Event Note Last Updated: 16-Sep-2021 12:07 by Sharmin Guaman (GUEST RELATIONS REPRESENTATIVE-MALWARE ANALYST) Normal [facility] Complete Blood Count + Diffe [...] 0.0 {/100_WBC} 0.0-0.0 [facility] the note. I personally evaluated the patient [id number] Electronic Signatures: Chidi Lamar ( (Fellow)) (Signed [...] From Consult - Psychiatry 15-Sep-2021 20:42 Normal [facility] Consult-Perioperative Medici neon 09-16-2021 Consult-Perioperative [...] penicillin: Unknown Objective: Objective Information: T PRBPSpO2 Value36.97159174/8491% Date/Time09/16 11: 12: 12: 12: 12:49 Range(36.3C - 36.4C ) [...] 100 mg (more content not included)... Normal [facility] Cult, Urineon 09-16-2021 Bacteria identified Cx Nom (U) Abnormal MG-Gastroen terology-Rosendo moura 6 [facility] Work Phone: Daily Progress Note-Neurosur geryon 09-16-2021 Daily Progress Note-Neurosurgery Service: Neurosurgery Subjective Data: MORALES LEE is a 46 year old Female who is Hospital Day # 3. Objective Data: Objective Information: T PRBPSpO2 Value36.1390384/6693% Date/Time09/16 1: 4: 4: 4: 4:00 Range(36.3C [...] the note. I personally evaluated the patient [id number] Comments/ Additional Findings TO OR this Tuesday if medically optimized for T12 - Pelvis fusion and Instrumentation. Pain consult for management regrading Suboxone and pain control in the perioperative period. US LE MRI of the lumbar spine., Lex Frederick MD, [facility], FAANS Director - Minimally Invasive Spine Surgery [facility] [employer] Greeter of Neurological Surgery [facility] [employer] [place], [place] Electronic Signatures: Fidel Maciel (Resident)) (Signed 16-Sep-2021 04:33) Authored: Service, Subjective Data, Objective Data, Assessment and Plan, Note Completion Lex Frederick) (Signed 16-Sep-2021 10:22) Authored: Note Completion Co-Signer: Service, Subjective Data, Objective Data, Assessment and Plan, Note Completion Last Updated: 16-Sep-2021 10:22 by Lex Frederick) Normal [facility] EMR ADDONon 09-16-2021 ADDON CONFIRMATION REQUEST REC'D Normal [facility] Comment on above: Performed By: [...] above: . <100 pg/mL - Heart failure [id number] pg/mL - Intermediate probability of acute heart. [...] [Mass/Vol] 3.5 g/dL Normal 3.4 - 5.0 [facility] Comment on above: Performed By: #### R ENAL #### [facility] [address] [place] [address] Anion gap [Moles/Vol] 14 mmol/L Normal 10 - 20 [facility] Comment on above: Performed By: #### R ENAL #### [facility] [address] [place] [address] Calcium [Mass/Vol] 8.9 mg/dL Normal 8.6 - 10.6 [facility] Comment on above: Performed By: #### R ENAL #### [facility] [address] [place] [address] Chloride [Moles/Vol] 101 mmol/L Normal 98 - 107 [facility] Comment on above: Performed By: #### R ENAL #### [facility] [address] [place] [address] Creatinine [Mass/Vol] 0.63 mg/dL Normal 0.50 - 1.05 [facility] Comment on above: Performed By: #### R ENAL #### [facility] [address] [place] [address] eGFR FEMALE >90 Normal >90 [facility] Comment on above: Result Comment: CALC ULATIONS OF ESTIMATED GFR ARE PERFORMED USING THE 2020 CKD-EPI STUDY REFIT EQUATION WITHOUT THE RACE VARIABLE FOR THE IDMS-TRACEABLE CREATININE METHODS. https://jasn.asnjournals.org/content//ASN.131 3644932 Performed By: #### R ENAL #### [facility] [address] [place] [address] Glucose [Mass/Vol] 88 mg/dL Normal 74 - 99 [facility] Comment on above: Performed By: #### R ENAL #### [facility] [address] [place] [address] HCO3 (Bld) [Moles/Vol] 29 mmol/L Normal 21 - 32 [facility] Comment on above: Performed By: #### R ENAL #### [facility] [address] [place] [address] Phosphate [Mass/Vol] 3.4 mg/dL Normal 2.5 - 4.9 [facility] Comment on above: Result Comment: The performance characteristics of phosphorus testing in heparinized plasma have been validated by the individual laboratory site where testing is performed. Testing on heparinized plasma is not approved by the FDA; however, such approval is not necessary. Performed By: #### R ENAL #### [facility] [address] [place] [address] Potassium [Moles/Vol] 3.7 mmol/L Normal 3.5 - 5.3 [facility] Comment on above: Performed By: #### R ENAL #### [facility] [address] [place] [address] Sodium [Moles/Vol] 140 mmol/L Normal 136 - 145 [facility] Comment on above: Performed By: #### R ENAL #### [facility] [address] [place] [address] Urea nitrogen [Mass/Vol] 10 mg/dL Normal 6 - 23 [facility] Comment on above: Performed By: #### R ENAL #### [facility] [address] [place] [address] Renal Function Panelon 09-16 Albumin BCP dye [...] RACE VARIABLE FOR THE IDMS-TRACEABLE CREATININE METHODS.https://jasn.asnjournals.org/content/ /ASN.6886635192 UA MICROSCOPICon 09-16-2021 BACTERIA 2+ /HPF Abnormal [facility] Comment on above: Performed By: #### U AMIC ####[id number] [place] [address] Mucus Ql (Urine sed) 1+ /LPF Normal [facility] Comment on above: Performed By: #### U AMIC ####[id number] [place] [address] RBC 3 /HPF Normal 0-5 [facility] Comment on above: Performed By: #### U AMIC ####[id number] [place] [address] SQUAMOUS EPITH. CELLS 2 /HPF Normal [facility] Comment on above: Performed By: #### U AMIC ####[id number] [place] [address] WBC 115 /HPF Abnormal 0-5 [facility] Comment on above: Performed By: #### U AMIC ####[id number] [place] [address] URINALYSISon 09-16-2021 Appearance (U) HAZY Normal CLEAR [facility] Comment on above: Performed By: #### U A ####[id number] [place] [address] Bilirubin Ql (U) Negative Normal NEGATIVE [facility] Comment on above: Performed By: #### U A ####[id number] [place] [address] Color (U) YELLOW Normal STRAW,YELL OW [facility] Comment on above: Performed By: #### U A ####[id number] [place] [address] Glucose Ql (U) Negative Normal NEGATIVE [facility] Comment on above: Performed By: #### U A ####[id number] [place] [address] Hemoglobin Ql (U) Negative Normal NEGATIVE [facility] Comment on above: Performed By: #### U A ####[id number] [place] [address] Ketones Ql (U) Negative Normal NEGATIVE [facility] Comment on above: Performed By: #### U A ####[id number] [place] [address] Leukocyte esterase Test strip Ql (U) LARGE (3+) Abnormal NEGATIVE [facility] Comment on above: Performed By: #### U A ####[id number] [place] [address] Nitrite Ql (U) Positive Abnormal NEGATIVE [facility] Comment on above: Performed By: #### U A ####[id number] [place] [address] pH (U) 6.0 [pH] Normal 5.0 - 8.0 [facility] Comment on above: Performed By: #### U A ####[id number] [place] [address] Protein Ql (U) Negative Normal NEGATIVE [facility] Comment on above: Performed By: #### U A ####[id number] [place] [address] Specific gravity (U) [Rel density] 1.011 Normal 1.005 - 1.035 [facility] Comment on above: Performed By: #### U A ####[id number] [place] [address] Urobilinogen (U) [Mass/Vol] 2.0 mg/dL High 0.0 - 1.9 [facility] Comment on above: Result Comment: [...] positive urobilinogen. Performed By: #### U A ####[id number] [place] [address] URINE CULTURE,BACTERIALon URINE CULTURE,BACTERIAL PATIENT: Fay LEE LOCATION: [facility]#: [id number] : 71 AGE: SEX: F ORDERED BY: [...] DEPENDENT NS=NONSUSCEPTIBLE X=REPORTED IN ERROR ___ Normal [facility] Comment on above: Performed By: #### A FPA3 #### [facility] [address] [place] [address] Urinalysison 09-16-2021 Color (U) YELLOW See Below [facility] I [...] Negative NEGATIVE [facility] 6 [facility] Work Phone: Specific gravity (U) [Rel density] 1.011 1 See Below [facility] 6 [facility] Work Phone: Comment on above: Reference Range: 1.0 05 - 1.035 Urinalysis Positive Abnormal NEGATIVE [facility] I Work Phone: Urinalysis 2.0 mg/dL [...] Urinalysis Negative NEGATIVE [facility] 6 [facility] Work Phone: Urinalysis HAZY CLEAR [facility] Work Phone: Urinalysis, Microscopicon Urinalysis, Microscopic 1+ M [facility] Work Phone: Urinalysis, Microscopic 2+ Abnormal M [...] 09-16-2021 VASC LAB Venous Duplex Ultrasound DVT [place] [address] and Vascular Lab Report Lower Venous Duplex Ultrasound Patient Name: MORALES LEE Diana Physician: [id number] Arjun Romero MD, RPVI Study Date: 09/16/2021 Referring Physician: [id number] RAGSDALE MRN/PID: [id number] PCP: Accession/Order#: [id number] CC Report to: Date of : 1975 Technologist: Greyson Burleson RVT Gender: F Technologist 2: Admission Status: Outpatient Location Performed: [facility] Diagnosis/ICD: M79.89-Left leg swelling; M79.89-Right leg swelling Procedure/CPT: 31973 Peripheral venous duplex scan for DVT complete-01096 CONCLUSIONS: Right Lower Venous: No evidence of [...] Spontaneous/Phasic Peroneal Yes None PTV Yes None [id number] Arjun Romero MD, RPCONSUELO Final Normal [facility] LAB Venous Duplex Ultra sound for DVTon 09-16-2021 [facility] LAB Venous Duplex Ultrasound for DVT [facility] I Work Phone: No Panel Informationon 09-15 [email or web address] ?RetrieveTestByDateTime?P wkofcmDJ=[id number]&Date=1 09-05-2021&Time=19%3a14%3a 23%3a00&TestType=ECG&Site =1&OutputType=PDF&Ext=PDF [facility] I Work Phone: Normal sinus rhythm [facility] stroen [facility] 6 I Work Phone: Abnormal [facility] I Work Phone: [phone] [facility] I Work Phone: [phone] [facility] I Work Phone: 186 1 [facility] I Work Phone: 149 1 [facility] 6 I Work Phone: 224 1 [facility] Work Phone: 14 1 [facility] Work Phone: 26 1 [facility] Work Phone: 40 1 [facility] Work Phone: 476 1 [facility] Work Phone: 396 1 [facility] 6 I Work Phone: 82 1 [facility] 6 I Work Phone: 150 1 [facility] I Work Phone: 87 1 [facility] I Work Phone: [email or web address] ?RetrieveTestByDateTime?P efgsolFW=[id number]&Date=09-05-2021&Time=19%3a14%3a 42%3a00&TestType=ECG&Site =1&OutputType=PDF&Ext=PDF [facility] I [...] Type: Admission requested on behalf of Concetta Sih (Advanced Practice Nurse) done by Concetta Shi ([facility]) Admission - Reconciliation: 15-Sep-2021 19:03 [...] Incomplete: 30-Sep-2021 14:18 by: Concetta Shi ([facility]) Admission - Reconciliation: 30-Sep-2021 14:20 by: Concetta Shi ([facility]) Home MedicationsEnteredLast Dose TakenReconciled with current Order Reconciliation Comment/ Additional Information acetaminophen 325 mg oral tablet 2 tab(s) orally every 6 hours, as needed while having post operative [id number]-Gvx-7061 Reviewed and Held Ambien CR 12.5 mg oral tablet, extended release 1 tab(s) oral lyx61-Khp-6427 Zolpidem Tablet (AMBIEN)DOSE = 10 mg Oral At BedtimeNotes from Pharmacy: Substitution For Zolpidem (Ambien CR) 12.5 mg at Bedtime Ambien CR 12.5 mg oral tablet, extended release continued as the inpatient order Zolpidem Ankle Foot Orthosis for foot avqm72-Cst-4388 Reviewed and Held betamethasone topical valerate 0.1% topical cream 1 carlene topical prn 15-Sep-2021 EnteredInError Reviewed and Held Bilateral Prafos - orthotics to fit, - ICD 10: R26.0, M21.37, M62.81 30-Sep-2021 Reviewed and Held calcium-vitamin D 500 mg-200 intl units (5 mcg) oral tablet 1 tab(s) orally 4 times a bux88-Zxq-1991 Calcium 500 mg - Vitamin D 200 [...] times a day, as needed for muscle -Dva-4493 Cyclobenzaprine Tablet (FLEXERIL)DOSE = 10 mg Oral [...] topical 1% topical gel 1 carlene topical wrf71-Qlv-5290 Reviewed and Held DULoxetine 30 mg oral [...] 2 tab(s) orally once a day, As Brabmz30-Lby-5447 Reviewed and Held gabapentin 800 mg oral tablet 1 tab(s) oral 3 times a vwj84-Wli-7211 Gabapentin Capsule (NEURONTIN)DOSE = 800 mg Oral 3 Times a Day gabapentin 800 mg oral tablet continued as the inpatient order Gabapentin LEFT AFO -Orthotics to fit, ICD 10: M21.4204-Phd-3179 Reviewed and Held lidocaine 5% topical film Apply topically to affected area once a day, As Needed near surgical incision for incisional pain 15-Sep-2021 EnteredInError Reviewed and Held lisinopril 20 mg oral tablet 1 tab(s) oral once a wiy17-Lli-0282 Lisinopril Tablet (PRINIVIL, ZESTRIL)DOSE = 20 mg [...] patch TransDermal Every 24 HoursNotes from Pharmacy: [facility] nicotine 14 mg/24 hr [...] - available over the counter at any keilsnca63-Ykg-8424 Reviewed and Held RIGHT AFO - Orthotics to fit, - M21.3549-Bwc-0208 Reviewed and Held sennosides-docusate 8.6 mg-50 mg oral tablet 2 tab(s) orally 2 times a day , -Take while using oxycodone for post operative pain to prevent contipation 15-Sep-19 (more content not included)... Normal [facility] Radiologyon 09-15-2021 XR Chest Single view Normal [facility] astroen [facility]ology[facility] 6 I Work Phone: TH CHEST 1 VIEWon 09-15-2021 TH CHEST 1 VIEW Patient Name: MORALES LEE STUDY: CHEST 1 VIEW; 09/15/2021 7:21 pm INDICATION: pre-op . COMPARISON: 12/26/2020. ACCESSION NUMBER(S): [id number] ORDERING CLINICIAN: TOSHA BORJA FINDINGS: CARDIOMEDIASTINAL SILHOUETTE: [...] dysfunction. Electronically signed by: Esther PEDERSON MD [facility] Established Visit (Neurosurg ariana)on [...] in the Neurosurgery Spine Clinic at the [facility]. She is a very pleasant 46-year-old [...] obvious instability (more content not included)... Normal [place] No Panel Informationon 09-08 Normal [facility]-Neurosur Yanira Work Phone: Please click on the link to view the study images Normal [facility]-Neurosjudy Doyle Work Phone: SPINE, ENTIRE THORACIC/LUMBA R, INCLUDE [...] and T6-L4 Fusion. COMPARISON: None. ACCESSION NUMBER(S): [id number] ORDERING CLINICIAN: LEX FREDERICK FINDINGS: Fused PA [...] appearance. Electronically signed by: JOSEPH SALAZAR MD [facility] Tobacco Screening.on Fall risk assessment b) One or more fall s in the last year [facility] Work [facility]: Tobacco use status CPHS a) Yes M G-Nuha [facility] Work Phone: Established Visit (Neurosurg ariana)on 05-05-2021 Established Visit (Neurosurgery) History of Present Illness I just had the pleasure of seeing Mrs. Jesus villarreal in the Neurosurgery Spine Clinic at the [facility]. She is a very pleasant 45 -year-old female, who recently underwent a L1 Vertbrectomy and T6-L4 Fusion with me on 12/26/2020 and is status post 4 Months out from her surgery. Today's visit was a virtual visit with the patient at her home and myself at [facility]. She mentions that overall she [...] in Ms. JESUS hollis. Lex Frederick MD, [facility], FAANS Director - Minimally Invasive Spine Surgery [facility] [employer] Greeter of Neurological Surgery [employer] [facility] [employer] [place], [place] Some of this note was completed using [employer] voice recognition technology and sometimes the software [...] 12:18:23 PM Penicillins Hives;; Recorded By: Lucero oLwry; 10/28/2020 12:18:23 PM Current Meds Medication NameInstruction [...] May 05 2021 9:18PM EST (Author) Normal [place] Established Visit (Neurosurg ariana)on 01-08-2021 Established Visit [...] in the Neurosurgery Spine Clinic at the [facility]. She is a very pleasant 45 -year-old female, who recently underwent a L1 Vertbrectomy and T6-L4 Fusion with tx on 12/26/2020 and is status post 2 [...] the further treatment plan. Lex Frederick MD, [facility], FAANS Director - Minimally Invasive Spine Surgery [facility] [employer] Supervisor of Neurological Surgery [facility] [employer] [place], [place] Some of this note was completed using [employer] voice recognition technology and sometimes the software [...] Jan 08 2021 1:19PM EST (Author) [facility] T-SPINE WOon 12-25-19 NR MRI T-SPINE WO Patient Name: MORALES LEE STUDY: MRI T-SPINE WO; 12/24/2020 12:50 pm INDICATION: Lumbar Pain Scoliosis, unspecified Unspecified cord compression. COMPARISON: None. ACCESSION NUMBER(S): [id number] ORDERING CLINICIAN: LEX FREDERICK TECHNIQUE: Multiplanar and [...] spine. Electronically signed by: LENNY HAGER MD [facility] NR MRI L-SPINE WOon 12-12-19 NR MRI L-SPINE WO Patient Name: MORALES LEE STUDY: MRI L-SPINE WO; ; 12/11/2020 1:38 pm INDICATION: Lumbar Pain Scoliosis, unspecified Low back pain. COMPARISON: CT lumbar spine from 10/07/2020. MRI lumbar spine from 03/11/2016. ACCESSION NUMBER(S): [id number] ORDERING CLINICIAN: LEX FREDERICK TECHNIQUE: MRI of [...] multiple levels. This study was interpreted at [facility]. Electronically signed by: WESLEY CARBAJAL MD Normal [facility] Initial Visit (Neurosurgery) on 10-28-2020 [...] Status:Resulted - Preliminary,Retrospective By Protocol Authorization; Done: [id number] 12:00AM Reason: Unspecified for Xray Spine, entire thoracic/lumbar, include skull, cervical and sacral spine when performed, 2 or 3 view Radiologist to Determine Optimal Study : Y What are the patient's signs and symptoms? : Lumbar Pain SocHx: Current smoker Tobacco Use Screening; Status:Complete; Done: [id number] Patient Discussion/Summary It was a pleasure to see Ms. LEE at the Neurosurgery Spine Clinic at [facility]. Ms. 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 She now has been having severe symptoms [...] evaluated by another spine surgeon at the [facility] who recommended urgent surgery for her on [...] (more content not included)... Normal [facility] Mary Kate 07-10-2019 CNPN Telephone (SPNMMN) ----- MORALES LEE ([id number]) 1975 F Date Time Provider Department 07/10/19 DIXIE TEE PAGEMN During your visit today, we recorded the [...] Order(s):CONSULT TO ORTHOPAEDIC SURGERY [[id number]] Order #: [id number]: 1 Prescriptions as of 07/10/2019 Sig: LISINOPRIL [...] Status:Closed by DIXIE TEE MD on 07/10/19 [facility] CNOVon 07-09-2019 CNOV Office Visit (SPNSMN ) ----- MORALES LEE ([id number]) 1975 F Date Time Provider Department 07/09/19 9:30 AM STEVENSON QUAN SPNSMN During your visit today, we recorded the following information about you: Pulse Respiration Blood pressure Weight 89/minute 18/minute 124/74 95.8 kg Height 1.499 m Stevenson Quan MD 07/09/2019 2:56 PM Signed SPINE SURGERY OUTPATIENT CONSULT SERVICE DATE: 07/09/2019 PCP: No primary care provider on file. REFERRING PROVIDER: Dixie Tee MD [address] [facility] [address] Consult requested for an opinion regarding the [...] file Gets together: Not on file Attends sabianist service: Not on file Active member of [...] with the patient or the patient?s personal cash application representative. The patient has elected to schedule [...] autograft, allograft, BMP. 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] Other Visit Diagnosis:Spinal stenosis of thoracic region [M48.04] Order(s):CT THORACIC SPINE WO LOISON [[id number]] Order #: [id number] FUTURE Prescriptions as of 07/09/2019 Sig: LISINOPRIL [...] Status:Closed by STEVENSON QUAN MD on 07/09/19 [facility] OBSOLETEon 07-09-2019 OBSOLETE Procedure (EMGMN) ----- JESUSMORALES ([id number]) 1975 F Date Time Provider Department 07/09/19 [...] upper limb [G56.21] Order(s):EMG(NEURO/NI) [[id number]] Order #: [id number]: 1 Prescriptions as of 07/09/2019 Sig: LISINOPRIL [...] Status:Closed by JHON EASON MD on 07/09/19 [facility] PROGRESSon 07-09-2019 PROGRESS HNO ID: [id number] Author: Stevenson Quan Service: ? Author Type: Physician Type: Progress Notes Filed: 07/09/2019 2:56 PM Note Text: SPINE SURGERY OUTPATIENT CONSULT SERVICE DATE: 07/09/2019 PCP: No primary care provider on file. REFERRING PROVIDER: Dixie Tee MD [address] [facility] [address] Consult requested for an opinion regarding the [...] file Gets together: Not on file Attends sabianist service: Not on file Active member of [...] with the patient or the patient?s personal cash application representative. The patient has elected to schedule [...] 09, 2019 TIME: 10:24 AM PAGER: Normal [facility] OT-XR DEXA BONE DENSITY IMPO RTon 07-06-2019 OT-XR DEXA BONE DENSITY IMPORT Images were obtained outside of [facility] [id number] Normal [facility] CASE MGT INIT ASSESon 2018 CASE MGT INIT [facility] HNO ID: [id number] Author: Kimberly (Rn) MERA Dunaway Service: ? Author Type: Registered Nurse Type: Care Mgt Initial Assessment Filed: 06/20/2019 12:25 PM Note Text: CARE MANAGEMENT: ASSESSMENT AND DISCHARGE PLAN SERVICE DATE: 06/20/2019 SERVICE TIME: 12:21 PM PRIMARY CARE PHYSICIAN: No primary care provider on file. 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 No Advance Directive: Current Advance Directive: None Bar Assistant Attempted to Assist with AD Completion: Yes [...] Information Primary Emergency Contact: Lars Lee Address: [facility] [place], [place] [id number] [place] [address] OF [facility] Mobile Relation: Spouse Supportive: Yes Other [...] 0 I feel financially burdened by my hep-rs-imptrd expenses for my prescription medication: Disagree completely [...] with . Does not utilize any DME, assisted or community resources. Has d/c transportation via . Anticipate transitional care plan of home, no skilled needs identified at this time. TCC will remain available to assist as needed with transition planning. SIGNATURE: Kimberly Dunaway RN PATIENT NAME: Morales Lee DATE: June 20, 2019 TIME: 12:21 PM PAGER/CONTACT #: [phone] Normal [facility] CBCon 06-20-2019 Erythrocyte distribution width (RBC) [Ratio] 12.6 % Normal 11.5-15.0 [facility] Comment on above: Performed By: #### C BC #### [place] [phone] Hematocrit (Bld) [Volume fraction] 48.7 % High 36.0-46.0 [facility] Comment on above: Performed By: #### C BC #### [place] [phone] Hemoglobin (Bld) [Mass/Vol] 16.8 g/dL High 11.5-15.5 [facility] Comment on above: Performed By: #### C BC #### [phone] MCH (RBC) [Entitic mass] 31.1 pG Normal 26.0-34.0 [facility] Comment on above: Performed By: #### C BC #### [place] [phone] MCHC (RBC) [Mass/Vol] 34.5 g/dL Normal 30.5-36.0 [facility] Comment on above: Performed By: #### C BC #### [phone] MCV (RBC) [Entitic vol] 90.0 fL Normal 80.0-100.0 F [facility] Comment on above: Performed By: #### C BC #### [place] [phone] Platelet mean volume (Bld) [Entitic vol] 10.6 fL Normal 9.0-12.7 [facility] Comment on above: Performed By: #### C BC #### [place] [phone] Platelets (Bld) [#/Vol] 334 10*3/uL Normal 150-400 [facility] Comment on above: Performed By: #### C BC #### [place] [phone] RBC (Bld) [#/Vol] 5.41 10*6/uL High 3.90-5.20 [facility] Comment on above: Performed By: #### C BC #### [place] [phone] WBC (Bld) [#/Vol] 10.85 10*3/uL Normal 3.70-11.00 [facility] Comment on above: Performed By: #### C BC #### [place] [phone] CONSULTon 06-20-2019 CONSULT HNO ID: [id number] Author: Evelyn Resendez Service: Pain Management Author [...] activity was identified. 06/20/2019 by Evelyn Resendez APRN.MALWARE ANALYST PAST MEDICAL HISTORY Diagnosis Date - [...] file Gets together: Not on file Attends sabianist service: Not on file Active member of [...] 20, 2019 TIME: 8:24 AM PAGER/CONTACT #: [phone] (M-F [id number]) [facility] CT BRAIN WO IVCONon 06-20-[address] BRAIN WO IVCON * * *Final Report* * * DATE OF EXAM: Jun 20 2019 1:31AM [facility] 0504 - CT BRAIN WO [...] No large cortical infarct or acute hemorrhage. Academic Department Chair: PSCB Transcribe Date/Time: Jun 20 2019 1:33A Dictated by : DAVONTE MOY MD This examination was interpreted and the report reviewed and electronically signed by: DAVONTE MOY MD on Jun 20 2019 1:35AM EST [id number] [facility] ECG COMPLETEon 06-20-2019 ECG COMPLETE NAME : MORALES LEE PID : [id number] : 1975 Gender : Female Race : ORD : [id number] Procedure Date : Jun 19 2019 23:57:03 Edit Date : Jun 20 2019 07:51:18 Diagnosis:Sinus rhythm Normal ECG no STEMI 1200a Confirmed by MD ARREDONDO LISA ([id number]), medical editor IVANNA WALTON ([id number]) on 06/20/2019 7:51:18 AM Ventricular Rate : 85 BPM Atrial Rate : 85 BPM P-R Interval : 137 ms QRS Duration : 91 ms Q-T Interval : 365 ms QTC Calculation(Bazett) : 434 ms P [place] : 51 degrees R [place] : -13 degrees T [place] : 61 degrees Test Reason : Chest Pain Location : 302 : ED AVED-1 Overread By : MD ARREDONDO LISA Edited By : IVANNA WALTON Referred By : , Acquired by : [id number], [facility] ED NOTEon 06-20-2019 ED NOTE HNO ID: [id number] Author: Yuki Mckenzie) MERA Cruz Service: ? Author Type: Registered Nurse Type: ED Notes Filed: 06/20/2019 1:40 AM Note Text: Patient got CT, it is still pending and Jessie MESA said ok to transfer to [place] with out results pending. Patient agreeing and understanding of transfer. updated on POC and transfer via telephone. DM here to take patient at this time. Pain is not improved at time of transfer. [facility] ED NOTE HNO ID: [id number] Author: Yuki Cruz RN Service: ? Author Type: Registered Nurse Type: ED Notes Filed: 06/20/2019 1:15 AM Note Text: Clean catch urine specimen obtained and sent. [facility] ED NOTE HNO ID: [id number] Author: Yuki Cruz RN Service: ? Author [...] with getting transferred to another facility. Normal [facility] ED NOTE HNO ID: [id number] Author: Yuki WilksRn) MERA Cruz Service: ? Author Type: Registered Nurse Type: ED Notes Filed: 06/20/2019 3:28 AM Note Text: Patient stated Valium did not help. She continues to be in pain and upset. She wanted to speak with someone in charge and update on POC. Normal [facility] HISTORY PHYSICALon 9 HISTORY PHYSICAL HNO ID: [id number] Author: Talita Wesley RN Service: General Internal [...] tightness that is constant. Notices a decreased returns processor strength and weakness in left hand. She [...] pressure, palpitations, leg swelling. Denies hx of MD. GI: Denies nausea, vomiting, diarrhea, abdominal pain, [...] rotation 40/80% Decreased left C5-C7 sensation. Left returns processor strength 2/5. Right returns processor strength 5/5. UE DTR intact and equal. [...] tightness into left arm, weak left hand returns processor strength, and worsening severity of numbness/tingling -Afebrile [...] confirmed with patient pharmacy. Patient uses [facility] in [place], [place]. Patient provided #[phone]. Will call in am to confirm dose. Nicotine Abuse Assessment AND Plan: Smokes 1 1/2 PPD for 20 years. Smoking cessation advised. Nicotine patch ordered. Medication and Non-Pharmacologic VTE Prophylaxis/Anticoagulant s VTE Prophylaxis: VTE prophylaxis appropriate SIGNATURE: Talita Wesley APRN.MALWARE ANALYST PATIENT NAME: Moraels Lee DATE: June 20, 2019 TIME: 2:58 AM PAGER/CONTACT #: CDU # [phone] [facility] NURSING PROGon 06-20-2019 NURSING PROG HNO ID: [id number] Author: Austyn Mckenzie) MERA Berumen Service: Nursing Author Type: Registered Nurse Type: Nursing Progress Note Filed: 06/20/2019 3:10 PM Note Text: Nursing Progress Note Patient Name: Morales Lee Patient Location: [id number] - Daily Note:06/20/2019 -pt is upset regarding [...] note was completed by: AUSTYN BERUMEN RN [facility] NURSING PROG HNO ID: [id number] Author: Austyn (Rn) MERA Berumen Service: Nursing Author Type: Registered Nurse Type: Nursing Progress Note Filed: 06/20/2019 8:10 AM Note Text: Nursing Progress Note Patient Name: Morales Lee Patient Location: [id number] -02 Daily Note:06/20/2019 -assumed care of patient, pt is requesting her suboxone. We have to call to verify dosage. -MERA Acosta called pharmacy provided by night [facility] [facility] and the pharmacy does not open until 9am. We will call back to verify dose later. -Dr. Kwon called to speak with this RN, he will be in to see the patient later today. This note was completed by: AUSTYN BERUMEN RN [facility] NURSING PROG HNO ID: [id number] Author: Guadalupe (Rn) MERA Herbert Service: ? Author Type: Registered Nurse Type: Nursing Progress Note Filed: 06/20/2019 4:33 AM Note Text: Nursing Progress Note Patient Name: Morales Lee Patient Location: [id number] - Daily Note:AANDO x 3. C/O left hand [...] note was completed by: Guadalupe Herbert RN [facility] PROGRESSon 06-20-2019 PROGRESS HNO ID: [id number] Author: Sedrick Martin Service: General Internal Medicine [...] rales. Cor:RSR, no murmurs. 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 DATA: Diagnostic [...] VTE Prophylaxis/Anticoagulant s 06/20/19399 pneumatic compression stockings (ga,ma) 06/20/19399 activity - mobilize patient ([place], [place]) VTE Prophylaxis: appropriate SIGNATURE: Sedrick Mratin MD PATIENT NAME: Morales Lee DATE: June 20, 2019 TIME: 10:41 AM PAGER: [facility] PROGRESS HNO ID: [id number] Author: Sedrick Martin Service: General Internal Medicine Author Type: Physician Type: Progress Notes Filed: 06/20/2019 8:25 AM Note Text: As per Pain Management Consult still pending, I was notified by Pain Management to resume the pt.' s home Suboxone dosage until pt. Seen later today. Normal [facility] Troponin Ton 06-20-2019 Troponin T.cardiac [Mass/Vol] ug/L Normal 0.000-0.[address] [place] [address] Comment on above: Performed By: #### T NT #### [facility] [address] [place] [address] Troponin T.cardiac [Mass/Vol] ug/L Normal 0.000-0.[address] [place] [address] Comment on above: Performed By: #### T NT #### [place] [address] Basic Metabolic Panlon 06-19 Anion gap [Moles/Vol] 14 mmol/L Normal 9-18 [facility] Calcium [Mass/Vol] 10.3 mg/dL High 8.5-10.2 [facility] Chloride [Moles/Vol] 96 mmol/L Low 97-105 [facility] CO2 [Moles/Vol] 29 mmol/L Normal 22-30 [facility] Creatinine [Mass/Vol] 0.59 mg/dL Normal 0.58-0.96 [facility] eGFR- Amer. >[address] [facility] Comment on above: Result Comment: The [place] Diabetes Association (ADA) provides guidance for cutoff [...] Standards of Medical Care in Diabetes 2016, [place] Diabetes Association. Diabetes Care. 2016.39(Suppl 1). Potassium [Moles/Vol] 3.7 mmol/L Normal 3.7-5.1 [facility] Sodium [Moles/Vol] 139 mmol/L Normal 136-144 [facility] Urea nitrogen [Mass/Vol] 7 mg/dL Normal 7-21 [facility] CBC and Differentialon 06-19 Abs Baso 0.09 k/uL Normal <0.11 [facility] Abs [place] 0.61 k/uL Normal <0.87 [facility] [...] MCHC (RBC) [Mass/Vol] 34.2 g/dL Normal 30.5-36.0 [facility] MCV (RBC) [Entitic vol] 87.7 fL [...] ED NOTEon 06-19-2019 ED NOTE HNO ID: [id number] Author: Yuki Mckenzie) MERA Cruz Service: ? Author Type: Registered Nurse Type: ED Notes Filed: 06/20/2019 3:27 AM Note Text: Patient has requested valium, she says that she takes it at home. Biago updated. [facility] ED NOTE HNO ID: [id number] Author: Yuki Mckenzie) MERA Cruz Service: ? Author Type: Registered Nurse Type: ED Notes Filed: 06/20/2019 3:27 AM Note Text: Patient is complaining of nausea. She is requesting her saboxon as well and Biago was updated on request. [facility] ED NOTE HNO ID: [id number] Author: Yuki Mckenzie) MERA Cruz Service: ? Author Type: Registered Nurse Type: ED Notes Filed: 06/19/2019 7:54 PM Note Text: Said that after her surgery in 2016 her left pinky and ring finger are numb but she said lately her other fingers on that hand have been getting numb as well. [facility] ED NOTE HNO ID: [id number] Author: Vanessa Ruiz RN Service: ? Author Type: Registered Nurse Type: ED Notes Filed: 06/19/2019 6:48 PM Note Text: Patient has chronic neck pain for three years. Saw spine doctor 06/12/2019 for the same had x rays. Denies any new injury. States pain goes into left arm. Arrived via wheelchair [facility] ED PROV NOTEon 06-19-2019 ED PROV NOTE HNO ID: [id number] Author: Tracy Arredondo Service: Emergency Medicine Author [...] light touch over bilateral lower extremities. 3/5 returns processor, bicep, tricep strength over LUE. Decreased sensation to light touch over left upper extremity in median, radial, and ulnar nerve distribution. 5/5 returns processor, bicep, tricep strength of R UE. Skin: [...] neurosurgical consult as previous notes from her orientation & mobility specialist recommend obtaining EMG and possible further [...] a neurosurgical consult she warrants transfer to [facility] for further management of her condition. We have low suspicion for stroke at this time as pain appears to be radicular in nature and she has had worsening progression of her symptoms with documented notes from spine (Dr. Álvarez) suggesting this worsening pain and numbness. The MALWARE ANALYST, Talita, at [facility] recommended we obtain a CT brain and she must rule out any acute intercranial abnormality that may be contributing to the patient's symptoms. Therefore, this study was ordered and will be followed up by the night team especially if there is any acute intracranial abnormality. As long as there is no acute intracranial abnormality she will be transferred to [facility] for further evaluation and management of her condition. Patient voiced understanding was in agreement with the above plan. This patient's case was discussed with Dr. Arredondo who personally evaluated the patient supervised her care. 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 My shcofield findings include: History is a 44-year-old female [...] of 5 strength left upper extremities in returns processor strength as well as biceps and triceps [...] worsening neck pain we will place her [place] observation for cardiac rule out as well [...] and requested by the observation provider at [place] as they were concerned about stroke. However I doubt this and did not feel this was necessary however it is currently pending and patient will be transferred to [place] if this is unremarkable. Signature: Tracy Arredondo DO Date: 06/20/2019 Time: 12:26 AM Tracy Arredondo 06/20/[address] [facility] Magnesiumon 06-19-2019 Magnesium [Mass/Vol] 2.0 mg/dL Normal 1.7-2.3 [facility] Troponin Ton 06-19-2019 Troponin T.cardiac [Mass/Vol] ug/L Normal [facility]000[facility] (SPNMMN ) ----- MORALES LEE ([id number]) 1975 F Date Time Provider Department 06/12/19 [...] file Gets together: Not on file Attends sabianist service: Not on file Active member of [...] [Z98.890] Order(s):PATIENT PLACED ON SPINE CARE PATH [2633980] Order #: [id number]: 1 XR SCOLIOSIS PA STAND/LAT 2V [[id number]] Order #: [id number] FUTURE EMG(NEURO/NI) [[id number]] Order #: [id number]: 1 FUTURE CONSULT TO SPINE SURGERY [[id number]] Order #: [id number]: 1 FUTURE Prescriptions as of 06/12/2019 Sig: [...] FLUOXETINE 20 MG CAPSULE >> Talita Bone Vidya 06/12/2019 8:07 AM >> VAHIDMICHEL VIDYA TALITA Whitley Jun 12, 2019 8:07 AM Not taking ZONISAMIDE 100 MG CAPSULE >> Talitajesusita Bone Ma 06/12/2019 8:08 AM >> ELVER DASILVA TALITA Vyasjacque Jun 12, 2019 8:08 AM Not taking TOPIRAMATE 100 MG TABLET >> Talita Elver Dasilva 06/12/2019 8:07 AM >> ELVER DASILVA TAILTA Vyasjacque Jun 12, 2019 8:07 AM Not taking [...] Status:Closed by DIXIE TEE MD on 06/12/19 [facility] PROGRESSon 06-12-2019 PROGRESS HNO ID: [id number] Author: Zoey Aponte (RtRobert Montiel Service: Radiology Author Type: Press Manager Type: Progress Notes Filed: 06/12/2019 10:10 AM [...] PERIPHERAL IV DATA: Not applicable SIGNED BY: Zoey Trejo, RT June 12, 2019 10:09 AM Normal [facility] PROGRESS HNO ID: [id number] Author: Dixie Tee Service: ? Author Type: [...] file Gets together: Not on file Attends sabianist service: Not on file Active member of [...] June 12, 2019 TIME: 8:[address] [facility] XR SCOLIOSIS 2V PA STAND/LAT on [...] changes and multilevel compression deformities as described. Academic Department Chair: [facility] Transcribe Date/Time: Jun 12 2019 4:36P Dictated by : CAROLINA MOJICA MD This examination was interpreted and the report reviewed and electronically signed by: CAROLINA MOJICA MD on Jun 12 2019 4:39PM EST [id number] Normal [facility] PROGRESSon 05-14-2019 PROGRESS HNO ID: [id number] Author: Laury Levin Service: ? Author Type: Physician Social Work Therapist Type: Progress Notes Filed: 05/14/2019 1:26 PM [...] to rule out cubital tunnel syndrome. Normal [facility] PROGRESSon 05-09-2019 PROGRESS HNO ID: [id number] Author: Kathia Kelly Service: ? Author Type: ? Type: Progress Notes Filed: 05/14/2019 1:26 PM Note Text: Patient name: Morales Lee Are you being referred by a [facility] Provider or Pain Management Provider at [facility]? No If answer is YES please schedule directly with surgeon, triage does not need to be completed. Is this a self-referral No If not, who is the Referring Provider: Dr. Hendricks/ [facility] MRI/CT/myelogram within 12 months: Yes If No , please refer to medical spine or PCP to complete above imaging, triage does not need to be completed Imaging viewable in Epic: No If not, please provide [phone] to fax in imaging reports for review. [...] will fax imaging report and op notes. [phone] [facility] CT-CT C-SPINE WO CON IMPORTo n 02-13-2019 CT-CT C-SPINE WO CON IMPORT Images were obtained outside of [facility] [id number] Normal [facility] CT-CT L-SPINE WO CON IMPORTo n 02-13-2019 CT-CT L-SPINE WO CON IMPORT Images were obtained outside of [facility] [id number] Normal [facility] Vital Signs Date Time Vital Sign Value Performing Clinician Facility 10-01-2024 16:15-0500 Diastolic blood pressure 79 mm[Hg] Greyson Robertson DO Work Phone: [facility] [employer] 10-01-2024 16:15-0500 Heart rate 68 /min Gre[facility] Robertson DO [facility] 10-01-2024 16:15-0500 Respiratory rate 14 /min Greyson Robertson DO [facility] 10-01-2024 16:15-0500 SaO2% (BldA) [Mass fraction] 96 % Greyson Robertson DO Work Phone: [facility] [employer] 10-01-2024 16:15-0500 Systolic blood pressure 120 mm[Hg] Greyson Robertson DO Work Phone: [facility] [employer] 10-01-2024 08:16-0500 Body temperature 98.01 [degF] Greyson Robertson DO Work Phone: [facility] [employer] 10-01-2024 00:23-0500 Body height 152.4 cm Greyson Robertson DO Work Phone: [facility] [employer] 10-01-2024 00:23-0500 Body mass index (BMI) [Ratio] 37.89 kg/m2 Greyson Robertson DO [facility] 10-01-2024 00:23-0500 Body weight 88 kg Greyson Robertson DO Work Phone: [facility] [employer] 05-14-2024 09:48-0400 Body height 157.5 cm Genny Orosco [employer] Work Phone: [facility] 05-14-2024 09:48-0400 Body mass index (BMI) [Ratio] 34.75 kg/m2 Genny Orosco [employer] Work Phone: [facility] 05-14-2024 09:48-0400 Body temperature 96.69 [degF] Genny Orosco [employer] Work Phone: [facility] 05-14-2024 09:48-0400 Body weight 86.18 kg Genny Orosco [employer] Work Phone: [facility] 05-14-2024 09:48-0400 Diastolic blood pressure 54 mm[Hg] Genny Munozzpatrick [employer] Work Phone: [facility] 05-14-2024 09:48-0400 Heart rate 72 /min Genny Barrosopatrick [employer] Work Phone: [facility] 05-14-2024 09:48-0400 Systolic blood pressure 104 mm[Hg] Genny Barrosopatrick [employer] Work Phone: [facility] 06-07-2022 12:48-0400 Diastolic blood pressure 83 mm[Hg] No Pcp Required [facility] 06-07-2022 12:48-0400 Heart rate 67 /min No Pcp Required [facility] 06-07-2022 12:48-0400 Respiratory rate 16 /min No Pcp Required [facility] 06-07-2022 12:48-0400 SaO2% (BldA) [Mass fraction] 96 % No Pcp Required [facility] 06-07-2022 12:48-0400 Systolic blood pressure 148 mm[Hg] No Pcp Required [facility] 01-06-2022 10:51-0400 Blood Pressure Location NATALIA MANNING [facility] 01-06-2022 10:51-0400 Diastolic blood pressure 86 mm[Hg] NATALIA MANNING [facility] 01-06-2022 10:51-0400 Heart rate 86 /min NATALIA NIGEL [facility] 01-06-2022 10:51-0400 Respiratory rate 16 /min NATALIA NIGEL [facility] 01-06-2022 10:51-0400 Systolic blood pressure 132 mm[Hg] NATALIA MANNING [facility] 09-08-2021 14:15-0500 Body height 149.86 cm No PCP None [facility] Ah [facility] Work Phone: 09-08-2021 14:15-0500 Body mass index (BMI) [Ratio] 36.96 kg/m2 No PCP None BZ-Mlpmcpnvplky-Fx uja Work Phone: 09-08-2021 14:15-0500 Body surface area Derived from formula 1.78 m2 No PCP None CY-Toddwplylkym-Ly uja Work Phone: 09-08-2021 14:15-0500 Body weight 83.01 kg No PCP None [facility] Work Phone: 09-08-2021 14:15-0500 Diastolic blood pressure 68 mm[Hg] No PCP None AC-Kjsiifvkdabs-Ge uja Work Phone: 09-08-2021 14:15-0500 Heart rate 96 /min No PCP None [facility] Work Phone: 09-08-2021 14:15-0500 Respiratory rate 16 /min No PCP None [facility]Ah [facility] Work Phone: 09-08-2021 14:15-0500 Systolic blood pressure 115 mm[Hg] No PCP None FX-Xiuhrclqmzko-Ds uja Work Phone: 09-08-2021 14:15-0500 0 1 No PCP None [facility] Ah [facility] Work Phone: Comment on above: [facility] 01-01-2021 16:46-0400 Heart rate 111 /min No Pcp Required [facility] 01-01-2021 16:46-0400 SaO2% (BldA) [Mass fraction] 95 % No Pcp Required [facility] 01-01-2021 14:00-0400 Body temperature 96.8 [degF] No Pcp Required [facility] 01-01-2021 14:00-0400 Diastolic blood pressure 77 mm[Hg] No Pcp Required [facility] 01-01-2021 14:00-0400 Respiratory rate 18 /min No Pcp Required [facility] 01-01-2021 14:00-0400 Systolic blood pressure 114 mm[Hg] No Pcp Required [facility] Encounters Encounter Date Encounter Type Care Provider Facility Start: 06-04-2025 End: 06-04-2025 ambulatory Deirdre L Amari Facility:[facility] Start: 05-30-2025 ambulatory Deirdre L Amari Facility: [facility] Start: 2025 End: 2025 ambulatory Deirdre L Amari Facility:[facility] Start: 12-25-2024 End: 12-25-2024 ambulatory Deirdre L Amari Facility:[facility] Start: 12-25-2024 End: 12-25-2024 Lab Drop off Deirdre L Amari [facility] Start: 12-14-2024 ambulatory [employer] Deirdre L Amari Facil ity:[facility] Start: 12-12-2024 End: 12-12-2024 ambulatory [employer] Deirdre L Amari Facility:[facility] Start: 12-12-2024 End: 12-12-2024 Lab Drop off Deirdre L Amari [facility] Start: 12-12-2024 End: 12-12-2024 ambulatory [employer] Deirdre L Amari Facility:[facility] Start: 12-05-2024 End: 12-05-2024 ambulatory [employer] [facility]re L [facility] Start: 11-28-2024 End: 11-28-2024 ambulatory [employer] Deirdre L Amari [facility] Start: 11-23-2024 ambulatory Armando Wilder acility:[facility] Start: 11-01-2024 ambulatory [employer] Deirdre Amari Facilit y:[facility] Start: 10-31-2024 End: 10-31-2024 ambulatory [employer] Deirdre Parker Amari Facility:[facility] [place] Start: 10-30-2024 End: 10-30-2024 Office outpatient visit 10 minutes Lex Frederick [facility] Comment on above: S/P spinal fusion Start: 10-30-2024 End: 10-30-2024 ambulatory [facility] Start: 10-16-2024 End: 10-16-2024 ambulatory Richardson Craig Facility:[facility] Start: 10-08-2024 End: 10-23-2024 Pre-admission assessment LEX FREDERICK [facility] Start: 09-30-2024 End: 10-01-2024 [facility] Start: 09-30-2024 End: 10-01-2024 Emergency department patient visit Greyson Robertson DO Work Phone: [facility] Comment on above: Generalized weakness (Primary Dx); Chronic bilateral low back pain, unspecified whether sciatica present; Chronic thoracic back pain, unspecified back pain laterality; Encounter for screening involving social determinants of health (SDoH) Start: 09-01-2024 End: 09-01-2024 ambulatory Shaikh Micah Facility:[facility] Start: 09-01-2024 Encounter for other preprocedural examination Shaikh Micah [facility] Start: 09-01-2024 End: 09-04-2024 Clinisync Result Encounter Generic External Data Provider [facility] External Department Unsolicited Start: 09-01-2024 End: 09-03-2024 External Result Encounter Shaikh Micah HARKINS Work Phone: [facility] External Department Unsolicited Start: 09-01-2024 End: 09-04-2024 External Result Encounter Shaikh iMcah HARKINS Work Phone: [facility] External Department Unsolicited [...] 05-14-2024 End: 05-14-2024 Bamboo flowsheet Genny Orosco [employer] Work Phone: [facility] Start: 05-14-2024 End: 05-22-2024 Clinisync Result Encounter Genny Orosco [employer] Work Phone: [facility] External Department Unsolicited Start: 05-14-2024 End: 05-22-2024 Clinisync Result Encounter Genny Orosco [employer] Work Phone: [facility] External Department Unsolicited Start: 05-14-2024 End: 05-14-2024 ambulatory GENNY OROSCO Not Available Start: 05-14-2024 End: 05-14-2024 Office outpatient visit 15 minutes Genny Orosco [employer] Work Phone: [facility] Comment on above: Intrinsic sphincter deficiency (ISD) (Primary Dx); Psychophysiological insomnia; Encounter for medication management; Dependence on wheelchair; Pressure injury of skin of buttock, unspecified injury stage, unspecified laterality Start: 05-02-2024 End: 05-03-2024 Telephone encounter Jessie MESA Work Phone: [facility] Start: 04-24-2024 End: 04-24-2024 Reftony Orosco NP Work Phone: [facility] Comment on above: Chronic low back hina n, unspecified back pain laterality, unspecified whether sciatica present Start: 03-27-2024 End: 03-31-2024 Pre-admission assessment LEX FREDERICK [facility] Start: 03-26-2024 End: 10-27-2024 Pre-admission assessment LEX FREDERICK [facility] Start: 02-13-2024 End: 02-13-2024 ambulatory SHAIKH MICAH [...] encounter procedure Guillermina Bingham [facility] Start: 11-22-2022 ambulatory MENDOSA H FAWWAD Facilit y:H1 Start: 11-09-2022 End: 11-09-[address] DEVANTE ELIZONDO . Facility:H1 Start: 10-15-2022 End: 10-15-2022 ambulatory KYRA SILVA . Facility:H1 Start: 09-24-2022 End: 09-24-2022 Patient encounter procedure Guillermina Bingham [facility] Start: 09-01-2022 Encounter for preprocedural laboratory examination GUILLERMINA BINGHAM . [facility] Start: 08-25-2022 End: 08-25-2022 ambulatory MENDOSA H FAWWAD Facility:H1 Start: 08-24-2022 End: 08-25-2022 ambulatory MENDOSA H FAWWAD Facility:H1 Start: 08-24-2022 End: 08-25-2022 Encounter for preprocedural laboratory examination MENDOSA H FAWWAD Facility:H1 Start: 08-21-2022 ambulatory MENDOSA H FAWWAD Facilit y:H1 Start: 07-16-2022 End: 07-16-2022 Patient encounter procedure Guillermina Bingham [facility] Start: 06-06-2022 End: 06-07-2022 Emergency department patient visit Yony Aguirre [facility] Adult ED Blue 45 Start: 05-31-2022 End: 05-31-[address] MICHAEL SORIA . Facility:H1 Start: 05-19-2022 End: 05-19-2022 Off-Site Guillermina Bingham [facility] Start: 05-07-2022 End: 05-07-2022 ambulatory SHAIKH Shirley [...] 02-04-2022 Off-Site Guillermina Bingham [facility] Start: 01-11-2022 Chart Update No PCP None [facility] [place] Work Phone: Start: 01-11-2022 End: 01-11-2022 Patient encounter procedure Guillermina Bingham [facility] Start: 01-07-2022 AUDIT No PCP None MG-Neurosu [facility] Work Phone: Start: 01-06-2022 End: 01-06-2022 Patient encounter procedure NATALIA MANNING [facility] Start: 10-13-2021 AUDIT No PCP None MG-Neurosu rgery-Miguel Work Phone: Start: 09-29-2021 AUDIT No PCP None [facility] I Work Phone: Start: 09-15-2021 End: 10-02-2021 Evaluation and management of inpatient Dr. LEX FREDERICK Facility:[facility] Start: 09-09-2021 AUDIT No PCP None MG-Neurosu rgery-Miguel Work Phone: Start: 09-08-2021 Office outpatient vi sit 40 minutes No PCP None KN-Fnrpefyhruwq-Ynnzg Work Phone: Start: 05-05-2021 Postop follow up vis it related to original px No PCP None WY-Wcfyatitaudg-MTZLE Work Phone: Start: 12-26-2020 End: 01-01-2021 Evaluation and management of inpatient Lex Frederick [facility] Kaley TT04 Rm [id number] 01 Preoperative state No PCP None MG-Neuros urgery-[facility] Work Phone: Procedures Date Procedure Procedure [...] direct optical obs pr date Genny Orosco PLY BANDER Work Phone: Start: 05-14-2024 COMPLIANCE DRUG ANAL YSIS, UR Genny Kwesi PLY BANDER Work Phone: Start: 09-21-[address] EFRAIN FREDERICK Comment on above: Performed By: #### A FPA3 #### [facility] [address] [place] [address] Start: 09-21-[address] EFRAIN FREDERICK Comment on above: Order Comment: CUADRA D MERA ESPINO, 09/21/2021 05:08TEST TYPE + SCREEN WAS CANCELLED, 09/21/2021 05:06 NO PHLEB ID ON TUBE. Result Comment: CALL ED MERA ESPINO, 09/21/2021 05:08 Performed By: #### A FPA3 #### [facility] [address] [place] [address] Start: 09-17-[address] EFRAIN FREDERICK Comment on above: Performed By: #### T +S #### [facility] [address] [place] [address] Start: 12-27-2020 End: 12-28-2020 Release Blood Product-Packed [...] Td Vaccines (2 - Td or Tdap) [facility] Start: 02-21-2030 DTaP/Tdap/Td Vaccine s (2 - Td or Tdap) DTaP/Tdap/Td Vaccines (2 - Td or Tdap) [facility] Start: 10-30-2024 End: 10-30-2025 X-ray scoliosis 2 View (NON EOS) X-ray scoliosis 2 View (NON EOS) Imaging Routine S/P spinal fusion Expected: 10/30/2024, Expires: 10/30/2025 [facility] Service Area Work Phone: Comment on above: Expected: 10/30/2024 , Expires: 10/30/2025 Start: 06-13-2024 End: 06-13-2024 Patient encounter procedure 06/13/2024 9:20 AM EDT Office Visit [facility] [address] [place] [phone] Lian Greer, GUEST RELATIONS REPRESENTATIVE-MALWARE ANALYST [address] [place] [address] [facility] Start: 05-14-2024 End: 05-14-2024 Patient encounter procedure 05/14/2024 9:30 AM EDT Office Visit [facility] [address] [place] [phone] Genny Orosco NP [address] [place] [phone] [facility] Start: 05-06-2024 COVID-19 Vaccine ( season) COVID-19 Vaccine ( season) [facility] Start: 05-06-2024 Influenza vaccination N [facility] Start: 10-17-2023 End: 10-17-2023 Patient encounter procedure 10/17/2023 6:30 PM EST Office Visit [facility] [address] [place] [phone] Shaikh Obrien MD [address] [place] [phone] [facility] Start: 2023 Administration of varicella zoster vaccine Zoster (Shingles) Vaccine (1 of 2) [facility] Start: 2023 Pneumococcal vaccination Pneum ococcal Vaccine (1 of 1 - PCV) [facility] Start: 2023 Zoster Vaccines (1 of 2) Zoste r Vaccines (1 of 2) [facility] Start: 05-06-2023 Influenza vaccination Influenza Vacc ine (#1) [facility] Start: 11-03-2021 POV, Provider: Lex Frederick, Status: Pen, Time: 2:00 PM POV, Provider: Lex Frederick, Status: Pen, Time: 2:00 PM LM-Sarjfifxbjrroxtu-N [facility] Work Phone: Start: 10-07-[address] [facility] RNVISIT, Provider: NURSE VISIT ASHLEY 5TH,MGNEUROSURGERY, Status: Pen, Time: 10:15 AM CD-Zmyguednaiczolzx-W [facility] Work Phone: Start: 09-18-2021 [facility], Provider: Lex Frederick, Status: Pen, Time: 8:00 AM [facility], Provider: Lex Frederick, Status: Pen, Time: 8:00 AM MY-Sbcqajgadkfr-Awwxm Work Phone: Start: 01-08-2021 Patient encounter procedure Neurosurgery Miguel Start: 12-31-2020 End: 01-01-2022 [facility] Comment on above: please place at beds geraldine for drain removal Start: 12-26-2020 End: 12-27-2021 Naloxone Injectable 0.4 mg IntraVenous Push Once ; (NARCAN)DOSE = 0.2 mg IntraVenous Push Once, PRN patient is unarousable, and respiratory rate lessClinician Notes: 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 immediately Start: 2013 Screening for malign ant neoplasm of breast Mammogram [facility] Start: 2003 Screening for malign ant neoplasm of cervix [facility] Start: 1994 Screening for malign ant neoplasm of cervix [facility] Start: 1992 Hepatitis B Vaccines (1 of 3 - 19+ 3-dose series) Hepatitis B Vaccines (1 of 3 - 19+ 3-dose series) [facility] Start: 1991 Adult BMI Screening Adult BMI Screen ing [facility] Start: 1991 Hepatitis C screening Hepatitis C Sc reening [facility] Start: 1985 Depression Screening Depression Scre ening [facility] Start: 1985 Tobacco Screening Tobacco Screening [facility] Start: 1974 MMR Vaccines (1 of 1 - Standard series) MMR Vaccines (1 of 1 - Standard series) [facility] Start: 1973 HIV screening HIV Screening [facility] Start: 1973 Lipid panel Lipid Panel [facility] Start: 1973 Screening for malign ant neoplasm of colon [facility] Start: 1973 Yearly Adult Physical Yearly Adult P [facility] Bacteria identified in Urine by Culture URINE CULTURE, ROUTINE Lab Routine 07/12/2024 2:30 PM EST [facility] Bacteria identified in Urine by Culture Urine culture Microbiology Routine 09/01/2024 5:30 PM EST [facility] Work Phone: End: 09-30-2024 Bacteria identified in Urine by Culture [facility] Work Phone: Comment on above: STAT for [...] 2 Lab Routine 09/01/2024 6:45 AM EST [facility] Immunizations Immunization Date Immunization Notes Care Provider Fa cility 02-22-2020 tetanus toxoid, redu luis diphtheria toxoid, and acellular pertussis vaccine, adsorbed Guillermina Bingham [facility] 12-05-2018 hepatitis A vaccine, adult dosage Guillermina Bingham [facility] Payers Date Payer Category Payer Self-pay 2021 [facility] BCBS Memb er Subscriber Plan / Payer (Effective 2021-Present) Name: Morales Lee Relation to Subscriber: Spouse Name: JESUSLARS Date of : 1970 (Home) Address: [address] [place] [id number] Payer ID: Not on file Type: Not on file Address: [place] [id number] 2021 [facility] Managed Care [facility] [id number]. [id number] 2012 [facility] Managed Care - O ANTHEM 1.2.840.916292.1.13.424. 2.7.9.417849.505.315 2012 Unknown 1973 Unknown [id number] 2.16.840.1.832528.3.579. 2.356 1973 Unknown [id number] 2.16.840.1.081111.3.579. 2.356 1973 Unknown [id number] 2.16.840.1.436637.3.579. 2.593 1973 Unknown [id number] 2.16.840.1.624795.3.579. 2.593 1973 Unknown [id number] 2.16.840.1.761200.3.579. 2.593 1973 Unknown [id number] 2.16.840.1.668813.3.579. 2.593 1973 Unknown [id number] 2.16.840.1.326400.3.579. 2.593 1973 Unknown [id number] 2.16.840.1.140546.3.579. 2.593 1973 Unknown [id number] 2.16.840.1.523845.3.579. 2.593 1973 Unknown [id number] 2.16.840.1.732435.3.579. 2.593 1973 Unknown [id number] 2.16.840.1.299860.3.579. 2.593 1973 Unknown [id number] 2.16.840.1.350972.3.579. 2.593 1973 Unknown [id number] 2.16.840.1.020169.3.579. 2.593 1973 Unknown [id number] 2.16.840.1.131999.3.579. 2.593 1973 Unknown [id number] 2.16.840.1.581934.3.579. 2.593 1973 Unknown [id number] 2.16.840.1.717545.3.579. 2.593 1973 Unknown [id number] 2.16.840.1.615608.3.579. 2.593 1973 Unknown [id number] 2.16.840.1.603140.3.579. 2.593 1973 Unknown [id number] 2.16.840.1.251332.3.579. 2.593 1973 Unknown [id number] 2.16.840.1.829425.3.579. 2.1046 1973 Unknown [id number] 2.16.840.1.103070.3.579. 2.1259 1973 Unknown [id number] 2.16.840.1.721719.3.579. 2.1259 1973 Unknown [id number] 2.16.840.1.985375.3.579. 2.1259 1973 Unknown [id number] 2.16.840.1.671483.3.579. 2.1286 1973 Unknown [id number] 2.16.840.1.590293.3.579. 2.1242 1973 Unknown [id number] 2.16.840.1.708559.3.579. 2.727 1973 Unknown [id number] 2.16.840.1.990215.3.579. 2.727 1973 Unknown [id number] 2.16.840.1.452115.3.579. 2.727 1973 Unknown [id number] 2.16.840.1.663965.3.579. 2.72 1973 Unknown [id number] 2.16.840.1.413767.3.579. 2.72 1973 Unknown [id number] 2.16.840.1.049802.3.579. 2.72 1973 Unknown [id number] 2.16.840.1.763017.3.579. 2. 1973 Unknown [id number] 2.16.840.1.594118.3.579. 2. 1973 Unknown [id number] 2.16.840.1.858424.3.579. 2. 1973 Unknown [id number] 2.16.840.1.137750.3.579. 2.72 1973 Unknown [id number] 2.16.840.1.008369.3.579. 2.72 1973 Unknown [id number] 2.16.840.1.396421.3.579. 2.727 1959 Unknown [id number] Unknown [id number] 2.16.840.1.775355.3.579. 2.531 Unknown [id number] 2.16.840.1.679939.3.579. 2.531 Social History Date Type Detail Facility [facility] Tobacco smoking consumption unknown [facility] Work Phone: Start: 10-16-2020 End: 08-01-2023 History of drug use History of drug use HB-Ovppfpttkaml-PWXH C Work Phone: Start: 01-05-2016 End: 10-01-2024 Tobacco smoking status Smokes tobacco daily (finding) [facility] Comment on above: 1ppd 1ppd Start: 10-16-2020 End: 08-08-2023 Sex Assigned At Female [facility] History of tobacco use Cigarette Smoker [facility] Start: 08-08-2023 End: 10-01-2024 Alcohol intake Lifetime non-drinker (finding) [facility] Start: 1975 Sex Assigned At Not on file [facility] History of tobacco use Passive smoker [facility] Start: 10-01-2024 Tobacco use and exposure Smokeless tobacco [facility] Start: 12-17-2009 End: 04-10-2015 Sex Female (finding) [employer] [facility] Start: 10-20-2024 End: 10-30-2024 Exposure to SARS-CoV-2 (event) Not sure [facility] Start: 10-31-2024 Tobacco smoking status Heavy t obacco smoker (finding) [facility] Comment on above: 1ppd Sexual Orientation [facility] Medical Equipment Procedure Code Equipment Code Equipment Original Text Equipment Identifier Dates 2 EA, SubLingual , Daily, Refill(s) 0 Start: 01-05-2016 2 EA, SubLingual , Daily, Refill(s) 0 Start: 01-05-2016 2 EA, SubLingual , Daily, Refill(s) 0 Start: 01-05-2016 Bone Graft, Osteocel Plus, Cellular,Matrix, 10 Case [id number] Start: 12-26-2020 Comment on above: Description: Convert ed from [facility]. Please see archived information for full log information. Bone Graft, Osteocel Plus, Cellular,Matrix, 10 Case [id number] Start: 12-26-2020 Comment on above: Description: Convert ed from [facility]. Please see archived information for full log information. Bone Graft, Osteocel Plus, Cellular,Matrix, 10 Case [id number] Start: 12-26-2020 Comment on above: Description: Convert ed from [facility]. Please see archived information for full log information. Bone Matrix, Osteocel Pro Cellular, Large Case [id number] Start: 09-18-2021 Comment on above: Description: Convert ed from [facility]. Please see archived information for full log information. Bone Graft, Osteocel Plus, Cellular,Matrix, 10cc Case [id number] Start: 09-18-2021 Comment on above: Description: Convert ed from [facility]. Please see archived information for full log information. Bone Matrix, Osteocel Pro Cellular, Medium Case [id number] Start: 09-21-2021 Comment on above: Description: Convert ed from [facility]. Please see archived information for full log information. Screw, Reline-O, 6.5x50mm 2s Polyaxial Case [id number] Start: 12-26-2020 Comment on above: Description: Convert ed from [facility]. Please see archived information for full log information. Screw, Reline-O, 4.5x45mm 2s Polyaxial Case [id number] Start: 12-26-2020 Comment on above: Description: Convert ed from [facility]. Please see archived information for full log information. 5.5x500 Jrod Alfonzo e [id number] Start: 12-26-2020 Comment on above: Description: Convert ed from [facility]. Please see archived information for full log information. Additional Information:5.5x500 JRODper bill only jdr 12/29/2020 1357pm Screw, Reline-O, 5.5x40mm 2s Polyaxial Case [id number] Start: 12-26-2020 Comment on above: Description: Convert ed from [facility]. Please see archived information for full log information. Screw, Reline-O, 6.5x45mm 2s Polyaxial Case [id number] Start: 12-26-2020 Comment on above: Description: Convert ed from [facility]. Please see archived information for full log information. Sandra Attrax, 10cc Case [id number] Start: 12-26-2020 Comment on above: Description: Convert ed from [facility]. Please see archived information for full log information. Screw, Reline-O, 5.0x45mm 2s Polyaxial Case [id number] Start: 12-26-2020 Comment on above: Description: Convert ed from [facility]. Please see archived information for full log information. Donis Louisene-O, 5.5x35mm 2s Polyaxial Case [id number] Start: 12-26-2020 Comment on above: Description: Convert ed from [facility]. Please see archived information for full log information. Aspen Reline-O, 5.5x45mm 2s Polyaxial Case [id number] Start: 12-26-2020 Comment on above: Description: Convert ed from [facility]. Please see archived information for full log information. Reline-O Conn, 5-6/5-6mm Rotating O-O Case [id number] Start: 12-26-2020 Comment on above: Description: Convert ed from [facility]. Please see archived information for full log information. Reline-O Conn, 5-6/5-6mm O-H Rotating Case [id number] Start: 12-26-2020 Comment on above: Description: Convert ed from Care Acute. Please see archived information for full log information. Aspen Reline-O, 6.5x40mm 2s Polyaxial Case [id number] Start: 12-26-2020 Comment on above: Description: Convert ed from [facility] Acute. Please see archived information for full log information. Aspen Reline-O, 7.5x45mm 2s Polyaxial Case [id number] Start: 09-18-2021 Comment on above: Description: Convert ed from [facility]. Please see archived information for full log information. Aspen Reline-O, 8.5x90mm 2s Poly Iliac Case [id number] Start: 09-18-2021 Comment on above: Description: Convert ed from [facility]. Please see archived information for full log information. Screw Reline-O, 7.5x40mm 2s Polyaxial Case [id number] Start: 09-18-2021 Comment on above: Description: Convert ed from [facility]. Please see archived information for full log information. Bobby Reline-O 5.5mm Case [id number] Start: 09-18-2021 Comment on above: Description: Convert ed from [facility]. Please see archived information for full log information. Additional Information:per bill only, verified by opnote PatriciaO Sabiha, 5-6/5-6mm Rotating O-O Case [id number] Start: 09-18-2021 Comment on above: Description: Convert ed from [facility]. Please see archived information for full log information. Bobby, Reline-0, 5.5 X 90mm, Lordotic Case [id number] Start: 09-18-2021 Comment on above: Description: Convert ed from [facility]. Please see archived information for full log information. Bobby, Reline-O Cocr, 5.8i966gp Straight Case [id number] Start: 09-18-2021 Comment on above: Description: Convert ed from [facility]. Please see archived information for full log information. Bobby, Reline-0, 5.5 X 40mm, Lordotic Case [id number] Start: 09-21-2021 Comment on above: Description: Convert ed from [facility]. Please see archived information for full log information. Reline Lock Screw, Closed Tulip Case [id number] Start: 09-21-2021 Comment on above: Description: Convert ed from [facility]. Please see archived information for full log information. Jaron-O Sabiha, 5-6/5-6mm O-H [facility] Case [id number] Start: 09-21-2021 Comment on above: Description: Convert ed from [facility] Acute. Please see archived information for full log information. Screw, Reline Lock, 5.5mm Open [place] Case [id number] Start: 12-26-2020 Comment on above: Description: Convert ed from Care Acute. Please see archived information for full log information. Screw, Reline Lock, 5.5mm Open [place] Case [id number] Start: 09-18-2021 Comment on above: Description: Convert ed from Care Acute. Please see archived information for full log information. Screw, Reline Lock, 5.5mm Open [place] Case [id number] Start: 09-21-2021 Comment on above: Description: Convert ed from Care Acute. Please see archived information for full log information. Functional Status Date Assessment Result Facility 11-26-2022 Functional Status N/A [facility] 07-16-2022 Functional Status N/A [facility] Functional observable [facility] Mental Status Date Assessment Result Facility 12-29-2020 Cognitive functi ons [id number] [facility] Clinical Notes 12-26-2020 to 12-12-2024 RadiologyLex Frederick MD - 10/30/2024 11:40 AM Gerson Martinez MD - 10/01/2024 5:06 PM Gerson Martinez MD - 10/01/2024 11:30 AM Gerson Martinez MD - 10/01/2024 11:30 AM EST Note Date & Type Note Facility 12-12-2024 Evaluation + Plan note Future Scheduled TestsEcho Transthoracic Complete 12/12/24 [facility] 10-30-2024 History of Present illness Narrative This [...] MRI C/T/L spine with Anesthesia done at [facility] in [place] but was unable to have done due to bronchitis. CT T/L spine done 10/01/24 at [facility] images were uploaded on PACS and available [...] the further treatment plan. Lex Frederick MD, [facility] [employer] Greeter of Neurological Surgery [facility] [employer] Attending Surgeon Director - Minimally Invasive Spine Surgery [place], [place] ---Some of this note was completed using [employer] voice recognition technology and sometimes the software misinterprets words. This may include unintended errors with respect to translation of words, typographical errors or grammar errors which may not have been identified prior to finalization of the chart note. Please take this into account when reading this note--- documented in this encounter [facility] Work Phone: 10-01-2024 Hospital course Narrative Discharge Summary Patient ID: Morales Lee Acct: [id number] Patient's PCP: NO PCP, NO PCP Admit Date: 09/30/2024 Discharge Date: Admitting Physician: Елена Loyd MD Discharge Physician: Dudley Martinez MD Discharge Diagnoses: Primary Problem Generalized weakness Principal Problem: Generalized weakness Active Problems: Ambulatory dysfunction Back pain, chronic Incomplete emptying of bladder Moderate episode of recurrent major depressive disorder ([facility]) Past Medical History: Diagnosis Date Hypertension Injury [...] Your Medications These medications were sent to [facility] - [place], [place] - [address] [place] [address] fluconazole 100 mg tablet potassium chloride 20 MEQ CR tablet sulfamethoxazole-trimethoprim 800-160 mg per tablet Time Spent on discharge is 35 minutes in the examination, evaluation, counseling and review of medications and discharge plan. Copy sent to Dr. GOODSON PCP, NO PCP documented in this encounter [facility] 10-01-2024 History and physical note [facility] History and Physical Name: Morales Lee Acct: [id number] Room: 12/07 Admit Date: 09/30/2024 PCP: HAMZAH PCP, HAMZAH [...] Moderate episode of recurrent major depressive disorder ([facility]) Plan: Patient is on Suboxone gabapentin DVT [...] meaning can be extrapolated by contextual diversion. [facility] 10-01-2024 History and physical note [facility] History and Physical Name: Morales Lee Acct: [id number] Room: 12/07 Admit Date: 09/30/2024 PCP: NO [...] as low as reasonably achievable. Finalized by Bablir Finney MD on 10/01/2024 1:05 AM X-ray [...] Moderate episode of recurrent major depressive disorder ([facility]) Plan: Patient is on Suboxone gabapentin DVT [...] by contextual diversion. [facility] 10-01-2024 Emergency department Triage note PT ARRIVES FROM HOME VIA EMS FOR CHRONIC BACK PAIN AND DEPRESSION [facility] 10-01-2024 Emergency department Note PT ARRIVES FROM HOME VIA EMS FOR CHRONIC BACK PAIN AND DEPRESSION documented in this encounter [facility] 06-08-2024 Miscellaneous Notes ----- Message from [employer] sent at 06/08/2024 3:14 PM EDT ----- Contract: HUBER Lidoderm Patch from [facility], not sure if can use Contract: HUBER Patient is not a current patient of this office informed that we thang give advice without this. Will call her insurance [employer]. No triage done Reason for Disposition Caller has cancelled the call before the first contact Protocols used: No Contact or Duplicate Contact Call-A-AH documented in this encounter [facility] 06-08-2024 Telephone encounter Note ----- Message from KIXEYE sent at 06/08/2024 3:14 PM EDT ----- Contract: HUBER Lidoderm Patch from [facility], not sure if can use [facility] 06-08-2024 Telephone encounter Note Contract: HUBER Patient is not a current patient of this office informed that we thang give advice without this. Will call her insurance [employer]. No triage done [facility] 06-08-2024 Telephone encounter Note Reason for Disposition Caller has cancelled the call before the first contact Protocols used: No Contact or Duplicate Contact Call-A-AH [facility] [employer] 05-15-2024 History of Present illness Narrative Associated [...] physician appointments and anticipated to need it senior living and lifelong Images from the original note [...] States her daughter in law is an AUTOMATIC LUMP MAKING MACHINE TENDER and helps care for her. When I discussed with patient her chronic neurological issues including spinal cord compression, stenosis and myelopathies, pt states she is no longer seeing neuro because after what the [place] did to me, I am not seeing [...] physician appointments and anticipated to need it senior living and lifelong Psychophysiological insomnia Encounter for medication management Relevant Orders Rapid drug screen, urine Pressure ulcer, buttock Patient is wheelchair bound with limited mobility due to chronic LBP, b/l LE weakness. Has associated fecal and urinary incontinence. Relevant Orders Ambulatory referral to Wound Clinic Rapid drug screen, urine Caroline documented in this encounter [facility] 05-02-2024 Miscellaneous Notes She has no showed or canceled the same day 4 times now for a new patient appointment. I do not feel she should be rescheduled with us. Patient has been discharged from practice. Letter sent 05/03/2024. documented in this encounter [facility] 05-02-2024 Telephone encounter Note She has no showed or canceled the same day 4 times now for a new patient appointment. I do not feel she should be rescheduled with us. [facility] 05-02-2024 Telephone encounter Note Patient has been discharged from practice. Letter sent 05/03/2024. [facility] Telephone encounter Note Patient would like a refill of her Valium. Was from [email or web address] but did not transfer to [employer]. [facility] 04-24-2024 Miscellaneous Notes Patient would like a refill of her Valium. Was from [email or web address] but did not transfer to [employer]. documented in this encounter [facility] 11-26-2022 Hospital Discharge instructions Patient Education 11/26/2022 [...] 10/01/2017 Document Revised: 12/14/2019 Document Reviewed: 10/01/2017 [employer] Patient Education 2020 [employer]. Follow Up Care 10/14/2022 11:11:52 With:Zachery HARKINS, CAROLEE Anderson, URO Address: When: Unknown [facility] 09-23-2022 Hospital Discharge instructions Patient Education [...] including vitamins, herbs, eye drops, creams, and hzra-wgk-wonxybh medicines. Any problems you or family members [...] provider tells you to take them. Taking jpqj-sed-yvgxhoi medicines, vitamins, herbs, and supplements. General instructions [...] 08/08/2013 Document Revised: 10/08/2019 Document Reviewed: 10/08/2019 [employer] Patient Education 2020 [employer] Follow Up Care 08/31/2022 10:49:10 With:Zachery HARKINS, CAROLEE Anderson, URO Address: When: Unknown [facility] 07-16-2022 Hospital Discharge instructions Patient Education 07/16/2022 [...] nerve stimulation). For women, using a medical diagnostic radiographer to prevent urine leaks. This is a [...] right after experiencing incontinence. General instructions Take qjfa-xst-iqrurgd and prescription medicines only as told by [...] 09/29/2005 Document Revised: 09/01/2018 Document Reviewed: 12/01/2017 [employer] Patient Education 2020 [employer]. Follow Up Care 06/15/2022 11:30:52 With:Zachery HARKINS, CAROLEE Anderson, URO Address: When: Unknown [facility] 02-04-2022 Hospital Discharge instructions Patient Education 02/04/2022 [...] nerve stimulation). For women, using a medical diagnostic radiographer to prevent urine leaks. This is a [...] right after experiencing incontinence. General instructions Take bmkd-zvv-cshcldr and prescription medicines only as told by [...] 09/29/2005 Document Revised: 09/01/2018 Document Reviewed: 12/01/2017 [employer] Patient Education 2020 [employer]. 02/04/2022 16:23:10 Calorie Counting for Weight Loss [...] 08/22/2006 Document Revised: 05/11/2019 Document Reviewed: 07/22/2017 [employer] Patient Education 2020 [employer]. Follow Up Care 02/04/2022 13:28:46 With:Guillermina Bingham MD, URL, URO Address: When: Unknown [facility] 01-11-2022 Evaluation + Plan note Extrac alexander [...] and Plan Diagnosis Bowel and bladder incontinence (CHS54-OZ R32, Billing Diagnosis, Medical). Incontinence without sensory awareness (NTC89-DL N39.42, Working, Medical). Diagnosis Bowel and bladder incontinence (WXH45-EK R32, Billing Diagnosis, Medical). Incontinence without sensory awareness (DHQ83-YE N39.42, Working, Medical). Addendum by Guillermina Bingham MD on January 11, 2022 10:23 EDT Post procedure diagnosis: Intrinsic sphincter deficiency, acontractile detrusor [facility]05-09-2022 Hospital Discharge instructions Patient Education 01/11/2022 10:22:42 [...] Up Care 01/06/2022 11:41:34 With:Guillermina Bingham Address: [address] [address] [phone] Business (1) When: Unknown Comments:Call for followup appointment in 2-3 weeks With:Guillermina Bingham Address:Unknown When: Unknown [facility]05-04-2022 Hospital Discharge instructions Patient Education 01/06/2022 10:27:52 [...] find one near you, check this website: [email or web address] [facility]. These are part of [...] information Learn more about cervical cancer from: [employer]: www.acog.org/Patients/FAQs/Cervical-Cancer [employer]: www.cancer.org/cancer/cervicalcancer/ U.S. Centers for Disease [...] 09/05/2016 Document Revised: 09/23/2018 Document Reviewed: 04/19/2017 [employer] Patient Education 2020 [employer]. Follow Up Care 11/20/2021 10:16:51 With:NATALIA MANNING PA-C, URL Address: [address] 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 Instead, bend at knees to pick up and delivery driver objects (more content not included)...[facility]01-26-2022 NoteThis report has been cancelled.[facility]01-17-2022 NotePROCEDURE DETAILS Postoperative Diagnosis: lumbar stenosis Surgeon: Dr. Lex Frederick Resident/Fellow/Other Social Work Therapist: Chery Awan Procedure: posterior L4-L5 decompression posterior [...] Completion Last Updated: 22-Sep-2021 10:54 by Lex Frederick)[facility]01-17-2022 NoteHistory & Physical Reviewed: /Lactating: [...] the note. I personally evaluated the patient [id number] Electronic Signatures: Lex Frederick) (Signed 21-Sep-2021 11:50) Authored: Note Completion Co-Signer: History & Physical Reviewed, ERAS, Consent, Note Completion Jaya Mosquera (Resident)) (Signed 21-Sep-2021 02:51) Authored: History & Physical Reviewed, ERAS, Consent, Note Completion Last Updated: 21-Sep-2021 11:50 by Lex Frederick () References: 1. Data Referenced From MRI Safety Screen v2 19-Sep-2021 19:00[facility] NoteRehab: Info: Mode of Treatmentoccupational [...] appropriate. 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 Exploration of spinal [...] performed and the images transferred to the fotobabble system for use in intraoperative image-guided computer-assisted [...] using the torque dri (more content not included)...[facility]01-14-2022 NoteThis report has been cancelled.[facility]01-14-2022 NoteHistory & Physical Reviewed: /Lactating: [...] the note. I personally evaluated the patient [id number] Electronic Signatures: Fidel Maciel (Resident)) (Signed 17-Sep-2021 22:49) Authored: History & Physical Reviewed, ERAS, Consent, Note Completion Lex Frederick) (Signed 19-Sep-2021 10:17) Authored: Note Completion Co-Signer: History & Physical Reviewed, ERAS, Consent, Note Completion Last Updated: 19-Sep-2021 10:17 by Lex Frederick) References: 1. Data Referenced From MRI Safety Screen v2 17-Sep-2021 11:28[facility]01-11-2022 NoteReferral Information: Consult requested by [...] be able to m (more content not included)...[facility]01-11-2022 NoteHistory of Present Illness: /Lactating: [...] the note. I personally evaluated the patient [id number] Electronic Signatures: Fidel Maciel (Resident)) (Signed 15-Sep-2021 [...] Plan Last Updated: 16-Sep-2021 10:20 by Lex Frederick)[facility]04-23-2021 History of Present illness Narrative* I just had the pleasure of seeing Mrs. Jesus villarreal in the Neurosurgery Spine Clinic at the [facility]. She is a very pleasant 46-year-old [...] the fact that the goal of the kiersten malin is to improve her overall functioning and [...] Ms. LEE care. * Lex Frederick MD, [facility], FAANS * Director - Minimally Invasive Spine Surgery * [facility] * Model Home Sales Greeter of Neurological Surgery * [employer] [facility] [employer] * [place], [place] * Some of this note was completed using [employer] voice recognition technology and sometimes the software misinterprets words. This may include unintended errors with respect to translation of words, typographical errors or grammar errors which may not have been identified prior to finalization of the chart note. Please take this into account when reading this note. [facility] Work Phone: [phone]) [phone] Reason for referral (narrative)* Reason for Referral: Patient s/p posterior bilateral L1 transpedicular decompression, posterior T7-T8, T8-T9, T9-T10, T0-T11, T11-T12, T12-L1 hutton hernandez osteotomies, Posterior T5-L4 instrumentation and fusion on 12/26 [facility] Future App[facility]ments Appointment Date:01/07/2022 11:00:00 AM Scheduled Provider: Location:[facility] Appointment Type:Urology CALL PAT FT Appointment Date:01/11/2022 08:00:00 AM Scheduled Provider: Location:[facility] Appointment Type:Urology FT Appointment Date:01/11/2022 09:00:00 AM Scheduled Provider: Location:[facility] Appointment Type:Urology FT [facility] + [facility] + Plan note Future Appointments Appointment Date:04/06/2024 12:00:00 PM Scheduled Provider: Location:.MRI Appointment Type:MRI Spine (FT) Appointment Date:04/06/2024 12:00:00 PM Scheduled Provider: Location:[facility] Appointment Type:Surgery FT Future Scheduled Tests Radiology* MRI Spine Cervical w/o Contrast 04/06/24 * MRI Spine Lumbar w/o Contrast 04/06/24 * MRI Spine Thoracic w/o Contrast 04/06/24 [facility] evaluation + Plan note Future Appointments Appointment Date:10/26/2024 12:00:00 PM Scheduled Provider: Location:.MRI Appointment Type:MRI Spine (FT) Appointment Date:10/26/2024 12:00:00 PM Scheduled Provider: Location:[facility] Appointment Type:Surgery FT Future Scheduled Tests Radiology* MRI Spine Cervical w/o Contrast 10/26/24 * MRI Spine Lumbar w/o Contrast 10/26/24 * MRI Spine Thoracic w/o Contrast 10/26/24 [facility] evaluation + Plan note Future Appointments Appointment Date:10/31/2024 01:00:00 PM Scheduled Provider:Deirdre Hale Location:[facility] Appointment Type:FM New Patient - Adult [facility] Evaluation + Plan note Future Appointments Appointment Date:12/14/2024 09:20:00 AM Scheduled Provider: Location:[facility] Appointment Type: Lab Draw Diagnostic Tests Pending * PAP [id number] w/ HPV and Genotype rflx 12/12/24 Future Scheduled Tests Laboratory* CBC w/ Auto Diff 12/12/24 * CBC w/ Auto Diff 12/12/24 * Comprehensive Metabolic Panel 12/12/24 Radiology* Echo Transthoracic Complete 12/12/24 [facility] Evaluation note* Neurological: zeomiqy6orr 5/5 except hg/io4+ble /5incision cdiHead/Neck: Ox3, awake, alertBUE 5 prox, HG/IO4+BLE HF/KE/DF/PF/EHL 5 [facility]* Constitutional: in no acute distressSkin: Well perfusedEyes: OU 3RHead/Neck: atraumatic, normocephal icRespiratory/Thorax: airway intact, good chest expansionCardiovascular: normal rate, regular rhythmGastrointestinal: non-tenderNeurological: NAD, A&Pa9Lilhvwz Nerves II-XII: PERRL, EOMI, Face symmetric, Facial SILT, Palate/Tongue midline and symmetric, shoulder shrugs symmetric, hearing intact to finger rubs bilaterallyMotor: RUE D5, B5, T5, HG5, IO5LUE D5, B5, T5, HG5, IO5RLE HF 4+, KE4+, PF4-, DF3LLE HF 4+, KE4+, PF3, DF4-Sensation: SILT throughout all extremitiesPsychological: mood appropriate [facility]* Diagnosis Chronic low back pain, unspecified back pain laterality, unspecified whether sciatica present- Primary Nausea in adult documented in this encounter [facility] Healthcare[facility]* Diagnosis Intrinsic sphincter deficiency (ISD)- Primary Psychophysiological insomnia Persistent disorder of initiating or maintaining sleep Encounter for medication management Dependence on wheelchair Pressure injury of skin of buttock, unspecified injury stage, unspecified laterality documented in this encounter [facility] HealthcareEvaluation note* Diagnosis Chronic low back pain, unspecified back pain laterality, unspecified whether sciatica present documented in this encounter [facility] HealthcareEvaluation note* Diagnosis Generalized weakness- Primary Generalized weakness Chronic bilateral low back pain, unspecified whether sciatica present Chronic thoracic back pain, unspecified back pain laterality Encounter for screening involving social determinants of health (SDoH) Ambulatory dysfunction Back pain, chronic Incomplete emptying of bladder Incomplete bladder emptying Moderate episode of recurrent major depressive disorder ([facility]) documented in [facility] encounter [facility]* Diagnosis S/P spinal fusion Arthrodesis status documented in this encounter [facility] Work Phone: Hospital course Narrative No data available for this section [facility] Hospital Discharge instructions* Activity:activity as tolerated. [...] Certification:Home Care Services Needed: yesSkilled Disciplines Ordered: RN/LENS GRINDING MACHINE OPERATOR, PT, OTFace to Face Encounter Completed: yesDate of Encounter: [id number] Necessity for Homecare (based on clinical findings): [...] washing dishes, & loading the dryer or senior cytotechnologist until cleared by MD. * Wound Care:Inspect [...] - Neurosurgeon:Physician/Dept/Service: NeurosurgeonDr Josephuled Date/Time: 08-Jan-2021 10:40Location: [facility] [address], [place]Phone Number: [phone]: 2 week postop/wound check visit; Bring Insurance Card and Photo ID [facility] No data available for this section [facility] Discharge instructionsNot on filedocumented in this encounterProMiddlet[facility] SystemInstructionsNot on filedocumented in this encounterProMiddletown Hospital SystemInstructionsNot on filedocumented in this encounterProMiddletown Hospital SystemProgress note No data available for this section [facility] reason for referral (narrative) , urinary incontinence, neurogenic bladder, open bladder neck, possible SP tube placement Referred by: Zachery HARKINS, Guillermina Rhodes [facility] Reason for referral (narrative)* Consultation (Routine) - Authorized Specialty Diagnoses / Procedures Referred By Pablo saavedra Referred To Contact Wound Care Diagnoses Pressure injury of skin of buttock, unspecified injury stage, unspecified laterality Procedures SC OFFICE/OUTPATIENT [facility] 60 MINUTES Genny Orosco NP [address] [place] [phone] Pérez Pederson MD [address], [place] [address] Referral ID Status Reason Start Date Expiration Date Visits Requested Visits Authorized [id number] Authorized Specialty Services Required 05/15/2024 11/11/2024 1 [...] DATE CREATED AUTHOR AUTHOR'S ORGANIZ ATION 06/20/2019 [facility] DATE CREATED AUTHOR AUTHOR'S ORGANIZ ATION 07/26/[address] [facility] DATE CREATED AUTHOR AUTHOR'S ORGANIZ ATION 12/29/2020 [facility] DATE CREATED AUTHOR AUTHOR'S ORGANIZ ATION 09/16/2021 [employer] DATE CREATED AUTHOR AUTHOR'S ORGANIZ ATION 12/10/2021 [facility] DATE CREATED AUTHOR AUTHOR'S ORGANIZ ATION 08/06/2022 [facility] DATE CREATED AUTHOR AUTHOR'S ORGANIZ ATION 01/17/2023 [facility] DATE CREATED AUTHOR AUTHOR'S ORGANIZ ATION 06/09/2023 [facility] DATE CREATED AUTHOR AUTHOR'S ORGANIZ ATION 05/15/2024 [facility] DATE CREATED AUTHOR AUTHOR'S ORGANIZ ATION 10/02/2024 [facility] DATE CREATED AUTHOR AUTHOR'S ORGANIZ ATION 11/03/2024 [facility] DATE CREATED AUTHOR AUTHOR'S ORGANIZ ATION 11/25/2024 [facility] DATE CREATED AUTHOR AUTHOR'S ORGANIZ ATION 12/26/2024 [place] [facility] DATE CREATED AUTHOR AUTHOR'S ORGANIZ ATION 03/28/2025 [place] [facility] DATE CREATED AUTHOR AUTHOR'S ORGANIZ ATION 06/09/2025 [facility] <item><item> Privacy Markings (unrecogniz ed section [...] Care Team (unrecognized sect ion and content) Paper Tube Cutter Relationship Specialty Start Date End Date Shaikh Obrien MD PCP - General Internal Medicine 08/05/23 Paper Tube Cutter Relationship Specialty Start Date End Date Unallocated, Kunals MD [address] [place] [address] PCP - General Family Medicine 06/04/24 Genny Orosco NP [address] [place] [address] Nurse Practitioner Family Medicine 04/12/24 Paper Tube Cutter Relationship Specialty Start Date End Date Kostas Ching MD [address] [place] [phone] PCP - General Family Medicine 04/12/24 Genny Orosco NP [address] [place] [phone] Nurse Practitioner Family Medicine 04/12/24 Paper Tube Cutter Relationship Specialty Start Date End Date Kostas Ching MD [address] [place] [address] PCP - General Family Medicine 04/12/24 Genny Orosco NP [address] [place] [address] Nurse Practitioner Family Medicine 04/12/24 Paper Tube Cutter Relationship Specialty Start Date End Date Kostas Ching MD [address] [place] [phone] PCP - General Family Medicine 04/12/24 Genny Orosco NP [address] [place] [address] Nurse Practitioner Family Medicine 04/12/24 Paper Tube Cutter Relationship Specialty Start Date End Date Kostas Ching MD [address] [place] [phone] PCP - General Family Medicine 04/12/24 Genny Orosco NP [address] [place] [address] Nurse Practitioner Family Medicine 04/12/24 Paper Tube Cutter Relationship Specialty Start Date End Date Unallocated, Nilo Juarez MD [address] [place] [address] PCP - General Family Medicine 06/04/24 Genny Orosco NP [address] [facility] [place] [address] Nurse Practitioner Family Medicine 04/12/24 Paper Tube Cutter Relationship Specialty Start Date End Date No Pcp, [place] [address] PCP - General Family Medicine 10/01/24 Paper Tube Cutter Relationship Specialty Start Date End Date Shaikh Obrien MD PCP - General Internal Medicine 11/15/22 Paper Tube Cutter Relationship Specialty Start Date End Date Shaikh Obrien MD PCP - General Internal Medicine 11/15/22 Reason for Visit (unrecogniz ed section and content) Reason Comments Hospital Follow-up Reason Onset Date Comments Med Refill 04/24/2024 Reason Comments Back Pain Specialty Diagnoses / Procedures Referred By Controber t Referred To Contact Diagnoses Chest pain Generalized weakness Елена Loyd MD [address] [place] [address] Phone: tel: fax: Referral ID Status Reason Start Date Expiration Date Visits Re quested Visits Authorized [id number] 1 1 Scheduled Active and Recently Administ [...] 1616 (Medication Carlene lied - Provider: Carissa Adkins RN) orphenadrine (NORFLEX) injection 60 mg (COMPLETED) [...] Adkins RN)1513 (New Bag - Provider: Carissa Adkins RN)1646 (Stop Bag - Provider: Carissa Adkins, MERA) PRN Medication Order 09/29/2024 09/30/2024 10/01/2024 acetaminophen [...] medication - verify indication for use. Arjun cruz, Indications: dyspepsia calcium gluconate 3,000 mg in [...] BE BASED ON THE PRIMARY CLINICAL RECORDS. [employer] [facility]. provides no warranty or guarantee of the accuracy or completeness of information in this document.
--- NOTE | 2025-06-21 14:32 | ED.GENADUL1 ---
HPI HPI - General Adult General Chief complaint: Recheck/Abnormal Lab/Rx Stated complaint: ORAL AND MAXILLOFACIAL SURGERY PAIN Time Seen by Provider: 06/21/25 14:18 Source: patient Mode of arrival: Wheelchair History of Present Illness HPI narrative: 50-year-old female presents to have her Alvares catheter changed. It has been leaking. She is unable to walk and gets around in a wheelchair and that is the reason for having the Alvares catheter. She does not have any other acute complaints today. Related Data Home Medications ?Medication ?Instructions ?Recorded ?Confirmed buprenorphine 8 mg-naloxone 2 mg 1 film sublingual Q8H 03/01/23 05/05/25 sublingual film gabapentin 800 mg tablet 800 mg PO TID 03/30/23 05/05/25 tizanidine 4 mg tablet 4 mg PO Q8H PRN muscle spasticity 03/30/23 05/05/25 potassium chloride 20 mEq 20 meq PO DAILY 10/05/24 05/05/25 tablet,extended release(part/cryst) diazepam 5 mg tablet 5 mg PO DAILY 04/30/25 05/05/25 duloxetine 30 mg capsule,delayed 30 mg PO BID 04/30/25 05/05/25 release Previous Rx's ?Medication ?Instructions ?Recorded sulfamethoxazole 800 1 tab PO BID 5 days #10 tabs 04/30/25 mg-trimethoprim 160 mg tablet (Bactrim DS) Allergies Allergy/AdvReac Type Severity Reaction Status Date / Time codeine Allergy Severe rash Verified 05/05/25 01:32 Penicillins Allergy Severe Anaphylaxis Verified 05/05/25 01:32 quetiapine (From Seroquel) Allergy Severe Seizure Verified 05/05/25 01:32 sulfamethoxazole (From Allergy Mild Nausea Verified 05/05/25 01:34 Bactrim) trimethoprim (From Bactrim) Allergy Mild Nausea Verified 05/05/25 01:34 Opioid HPI Opioid Management Most Recent Opioid Data: Last Pain Scale 5 09/25/24, 16:34 Last ORT Total Score 10 09/01/24, 08:58 Last ORT Risk Category High Risk 09/01/24, 08:58 Urine Drug Screen Interp, (.) Final 05/14/24, 09:30 Ur Phencyclidine Scrn, (NEGATIVE) Negative 10/05/24, 10:20 Review of Systems ROS Narrative A ten point review of systems is negative except as noted above. 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 (ICD-10) Ulcer of left heel and midfoot, limited to breakdown of skin (~08/27/24) ?L97.421 - Non-pressure chronic ulcer of left heel and midfoot limited to breakdown of skin (ICD-10) Opioid use disorder in remission ?F11.91 - Opioid use, unspecified, in remission (ICD-10) Indwelling Alvares catheter present ?Z97.8 - Presence of other specified devices (ICD-10) Accidental fall ?W19.XXXA - Unspecified fall, initial encounter (ICD-10) Pressure ulcer ?L89.90 - Pressure ulcer of unspecified site, unspecified stage (ICD-10) Cellulitis ?L03.90 - Cellulitis, unspecified (ICD-10) Urinary tract infection ?N39.0 - Urinary tract infection, site not specified (ICD-10) Urinary catheter (Alvares) change required ?Z46.6 - Encounter for fitting and adjustment of urinary device (ICD-10) Constipation ?K59.00 - Constipation, unspecified (ICD-10) Alvares catheter problem ?T83.9XXA - Unspecified complication of genitourinary prosthetic device, implant and graft, initial encounter (ICD-10) Drug-seeking behavior ?Z76.5 - Malingerer [conscious simulation] (ICD-10) UTI (urinary tract infection) ?N39.0 - Urinary tract infection, site not specified (ICD-10) Gastritis ?K29.70 - Gastritis, unspecified, without bleeding (ICD-10) Nausea & vomiting ?R11.2 - Nausea with vomiting, unspecified (ICD-10) Pressure sore ?L89.90 - Pressure ulcer of unspecified site, unspecified stage (ICD-10) Retention of urine, unspecified ?R33.9 - Retention of urine, unspecified (ICD-10) Decubital ulcer ?L89.90 - Pressure ulcer of unspecified site, unspecified stage (ICD-10) Swollen leg ?M79.89 - Other specified soft tissue disorders (ICD-10) Bronchitis ?J40 - Bronchitis, not specified as acute or chronic (ICD-10) Alvares catheter problem ?T83.9XXA - Unspecified complication of genitourinary prosthetic device, implant and graft, initial encounter (ICD-10) Vomiting ?R11.10 - Vomiting, unspecified (ICD-10) UTI (urinary tract infection) ?N39.0 - Urinary tract infection, site not specified (ICD-10) Gastritis ?K29.70 - Gastritis, unspecified, without bleeding (ICD-10) Candidal intertrigo ?B37.2 - Candidiasis of skin and nail (ICD-10) Leukocytosis ?D72.829 - Elevated white blood cell count, unspecified (ICD-10) Chronic back pain ?M54.9 - Dorsalgia, unspecified (ICD-10) ?G89.29 - Other chronic pain (ICD-10) Fecal incontinence ?R15.9 - Full incontinence of feces (ICD-10) Urinary incontinence ?R32 - Unspecified urinary incontinence (ICD-10) Wheelchair dependence ?Z99.3 - Dependence on wheelchair (ICD-10) Cord compression myelopathy ?G95.20 - Unspecified cord compression (ICD-10) Surgical History History of back surgery ?Z98.890 - Other specified postprocedural states (ICD-10) Chronic suprapubic catheter ?Z93.59 - Other cystostomy status (ICD-10) Social History Within the past year, how often did you have a drink containing alcohol: never Score interpretation: A score less than 3 is consistent with normal alcohol consumption. Smoking status: Current every day smoker Non-prescribed substance use: former substance user Highest level of school completed/degree received: GED or equivalent Little interest or pleasure in doing things: not at all Feeling down, depressed, or hopeless: not at all Exam Narrative Exam Narrative: Nurses note and vital signs reviewed General:The patient appears in no apparent distress. Skin:Warm, dry, no pallor noted.There is no rash noted. On her left posterior thigh is a large area of skin breakdown which is chronic for her and is being addressed by her PCP Head:Normocephalic, atraumatic Eye: Normal conjunctiva, no drainage Ears, Nose, Mouth, and Throat: oral mucosa is moist. Nares patent. Cardiovascular:Regular Rate and Rhythm Respiratory:Patient is in no distress, no accessory muscle use, lungs are clear to auscultation, no wheezing, rales or rhonchi Back:non-tender GI: Soft and nontender Musculoskeletal: The patient has no evidence of calf tenderness, no pitting edema, symmetrical pulses noted bilaterally Neurological: Awake and alert Psychiatric:Cooperative Constitutional Vital Signs, click to edit/add: Last Vital Signs Temp 97.8 F 06/21/25 14:06 Pulse 93 H 06/21/25 14:06 Resp 18 06/21/25 14:06 BP 125/88 06/21/25 14:06 Pulse Ox 97 06/21/25 14:06 O2 Del Method Room Air 06/21/25 14:06 Course Vital Signs Vital signs: Vital Signs Temperature 97.8 F 06/21/25 14:06 Pulse Rate 93 H 06/21/25 14:06 Respiratory Rate 18 06/21/25 14:06 Blood Pressure 125/88 06/21/25 14:06 Pulse Oximetry 97 06/21/25 14:06 Oxygen Delivery Method Room Air 06/21/25 14:06 Temperature 97.8 F 06/21/25 14:06 Pulse Rate 93 H 06/21/25 14:06 Respiratory Rate 18 06/21/25 14:06 Blood Pressure 125/88 06/21/25 14:06 Pulse Oximetry 97 06/21/25 14:06 Oxygen Delivery Method Room Air 06/21/25 14:06 Medical Decision Making [facility] Narrative Medical decision making narrative: New catheter is placed and she is able to be released. Differential Diagnosis Differential Diagnosis: Alvares catheter problem Discharge Plan Discharge Chief Complaint: Recheck/Abnormal Lab/Rx Clinical Impression: Encounter for Alvares catheter replacement Patient Disposition: Home, Self-Care Time of Disposition Decision: 14:34 Condition: Good Mode of Transportation: Private Vehicle Prescriptions / Home Meds: No Action gabapentin 800 mg tablet 800 mg PO TID tizanidine 4 mg tablet 4 mg PO Q8H PRN (Reason: muscle spasticity) potassium chloride 20 mEq tablet,ER particles/crystals 20 meq PO DAILY Rx Instructions: 10/01/24 FOR 7 DAYS buprenorphine-naloxone 8-2 mg film 1 film sublingual Q8H diazepam 5 mg tablet 5 mg PO DAILY duloxetine 30 mg capsule,delayed release(DR/EC) 30 mg PO BID sulfamethoxazole-trimethoprim [Bactrim DS] 800-160 mg tablet 1 tab PO BID 5 Days Qty: 10 0RF Print Language: Egyptian Instructions: Alvares Catheter Placement and Care (ED), How to Change a Catheter Drainage Bag (DC) Referrals: MAL PEREZ [Primary Care Provider, [facility]ER [facility]] - 1 week
[2025-06-21] MEDS: KETOROLAC TROMETHAMINE 60 MG/2 ML VIAL IM (15:25)
[2025-06-21] MEDS: LIDOCAINE 2% JELLY 10 ML TOPICAL (15:39)
== END 2025-06-21 15:59 | disposition home or self-care (01) ==
PROVIDERS: Emergency Provider Emergency Medicine; PCP Nurse Practitioner
DX: Z46.6 Encounter for fitting and adjustment of urinary device (principal); Z99.3 Dependence on wheelchair; F17.200 Nicotine dependence, unspecified, uncomplicated
CPT/HCPCS: 96372; 99284; 99285; J1885

== ENCOUNTER 2025-07-27 19:46 | Emergency (ER) | payer BC, SELFPAY ==
--- OUTSIDE RECORDS SUMMARY | 2024-10-25 05:30 | XMS_ITS ---
Author Organization [facility] Address [address] [place] [address] Care Team Providers Care Rope Tier Name Role Phone Le Davis Primary Care Provider [phone] REASON FOR VISIT est care/ prior PCP left the area Encounters Encounter Location Date Provider Diagnosis [place] [address] [place] [address] 10/25/2024 Le Davis Plan Of Treatment No Information Progress Notes * MARIA TERESA LEEOB:1975 ([age] yo F)Acc No.[id number]:10/25/2024 Progress Notes Patient: MORALES LYNCH :?[place] CNPDOB:1975???Age:49 Y ???Sex:FemaleDate:10/25/2024Phone:[phone]:[address] [place], [place] Subjective: * Chief Complaints: * e st care/ prior PCP left the area * Electronic signature of MAINE Todd on 07/27/2025 at 09:05 PM ESTSign off status: Pending * Provider: Cirilo Palacios CNP Date: 0 10/25/2024 Generated for Printing/Faxing/eTransmitting on:?07/27/2025 09:05 PM EST
--- OUTSIDE RECORDS SUMMARY | 2025-06-19 08:27 | XMS_ITS | Continuity of Care Document ---
Author Organization [facility] Address [address] [place] [address] Phone Care Team Providers Care Rn Intake Name Role Phone Pako Lopez Unavailable Unavailable Allergies, Adverse Reactions, Alerts Substance [...] or swallowing 2 film - Active F11.10 [id number] Procedures Procedure Date ROUTINE VENIPUNCTURE OFFICE/OUTPATIENT VISIT, [...] Diagnoses Date Provider Providers Copied on Encounter [facility], [address] [place] [address], [id number] , [place] tel: [phone] [facility] No Information 5 Visci DO Pako. [address], [place], [id number] , [place]. tel: [phone] [facility], [address] [place] [address], [id number] , [place] tel: [phone] [facility] Encounter for screening colonoscopy 5 Plank DO Adam. [address], [place], [id number] , [place]. tel: [phone] [facility], [address] [place] [address], [id number] , [place] tel: [phone] [facility] Encounter for screening for cervical cancer 5 Plank DO Adam. [address], [place], [id number] , [place]. tel: [phone] [facility], [address] [place] [address], [id number] , [place] tel: [phone] [facility] No Information 4 Plank DO Adam. [address], [place], [id number] , [place]. tel: [phone] OFFICE/OUTPA TIENT VISIT, [facility], [address] [place] [address], [id number] , [place] tel: [phone] [facility] Establish Care (chief complaint) Lab Draw (chief complaint) Need for hepatitis C screening testEncounter for screening for HIVDiabetes mellitus screeningLipid screeningPostlamine ctomy syndrome, not elsewhere classifiedNicotine dependence, unspecified, uncomplicatedUnspec ified urinary incontinenceOther reduced mobility 4 Dale Richard. [address] [place] [address], [id number] , [place]. tel: [phone] [facility], [address] [place] [address], [id number] , [place] tel: [phone] [facility] Opioid use, unspecified, uncomplicated 2 Wesly Beyer. [address] [place] [address], [address], [place]. tel: [phone] [facility], [address] [place] [address], [id number] , [place] tel: [phone] [facility] Opioid use, unspecified, uncomplicatedDepres dm NOSGeneralized anxiety disorder 2 Wesly Beyer. [address] [place] [address], [id number], [place]. tel: [phone] OFFICE/OUTPA TIENT VISIT, [facility], [address] [place] [address], [id number] , [place] tel: [phone] [facility] Suboxone (chief complaint) Opioid dependence, uncomplicatedBody mass index [BMI] 39.0-39.9, adult Nov-0 1 Pavlock DO Max. [address], [place], [id number] , [place]. tel: [phone] OFFICE/OUTPA TIENT VISIT, [facility], [address] [place] [address], [id number] , [place] tel: [phone] [facility] f/u (chief complaint) Body mass index [BMI]40.0-44.9, adultOpioid dependence, uncomplicated 1 Pavlock DO Max. [address], [place], [id number] , [place]. tel: [phone] OFFICE/OUTPA TIENT VISIT, [facility], [address], [place], [id number] , [place] tel: [phone] [facility] Suboxone (chief complaint) Body mass index [BMI]40.0-44.9, adultCompression fracture of L1 vertebra, sequelaLow back pain, unspecified Oct-0 [facility] [address], [place], [id number] , [place]. tel: [phone] [facility], [address] [place] [address], [id number] , [place] tel: [phone] [facility] Low back pain associated with a spinal disorder other than radiculopathy or spinal stenosis Sep-2 1 [facility] DO Max. [address] [place] [address], [id number] , [place]. tel: [phone] PSYTX PT&/FAMILY [address] [facility], [address] [place] [address], [id number] , [place] tel: [phone] [facility] Opioid use, unspecified, uncomplicatedDepres dm NOSGeneralized anxiety disorder Sep-0 1 Wesly Beyer. [address] [place] [address], [address], [place]. tel: [phone] OFFICE/OUTPA TIENT VISIT, [facility], [address] [place] [address], [id number] , [place] tel:+ [phone] [facility] Suboxone (chief complaint) Body mass index [BMI]40.0-44.9, adultLow back pain associated with a spinal disorder other than radiculopathy or spinal stenosisOpioid dependence, uncomplicatedAnxiet y Sep-0 1 Pavlock DO Max. [address] [place] [address], [id number] , [place]. tel: [phone] OFFICE/OUTPA TIENT VISIT, [facility], [address], [place], [id number] , [place] tel: [phone] [facility] Suboxone (chief complaint) Wound of skinAnxietyOpioid dependence, uncomplicated 1 [facility] DO Max. [address], [place], [id number] , [place]. tel: [phone] [facility], [address], [place], [id number] , [place] tel: [phone] [facility] Opioid use, unspecified, uncomplicatedDepres dm NOSGeneralized anxiety disorder 1 Wesly Beyer. [address] [place] [address], [address], [place]. tel: [phone] OFFICE/OUTPA TIENT VISIT, [facility], [address] [place] [address], [id number] , [place] tel: [phone] [facility] Suboxone (chief complaint) UDS (chief complaint) Opioid dependence, uncomplicatedBody mass index [BMI]40.0-44.9, adultAnxietyCompres dm fracture of L1 vertebra, sequela 1 [facility] DO Max. [address], [place], [id number] , [place]. tel: [phone] PSYTX PT&/FAMILY [address] [facility], [address] [place] [address], [id number] , [place] tel: [phone] [facility] Opioid use, unspecified, uncomplicatedDepres dm NOSGeneralized anxiety disorder 1 Wesly Beyer. [address] [place] [address], [address], [place]. tel: [phone] OFFICE/OUTPA TIENT VISIT, [facility], [address] [place] [address], [id number] , [place] tel: [phone] [facility] SUBOXONE (chief complaint) UDS (chief complaint) Body mass index [BMI]40.0-44.9, adultOpioid dependence, uncomplicatedAnxiet yCompression fracture of L1 vertebra, sequela 1 Pavlock DO Max. [address], [place], [id number] , [place]. tel: [phone] OFFICE/OUTPA TIENT VISIT, [facility], [address], [place], [id number] , [place] tel: [phone] [facility] SUBOXONE (chief complaint) UDS (chief complaint) Body mass index [BMI] 39.0-39.9, adultAnxietyEdema extremitiesOpioid dependence, uncomplicatedCompre ssion fracture of L1 vertebra, sequela 1 [facility] [address], [place], [id number] , [place]. tel: [phone] OFFICE/OUTPA TIENT VISIT, [facility], [address] [place] [address], [id number] , [place] tel: [phone] [facility] Suboxone (chief complaint) Body mass index [BMI] 39.0-39.9, adultOpioid dependence, uncomplicatedCompre ssion fracture of L1 vertebra, sequela 1 [facility] [address], [place], [id number] , [place]. tel: [phone] PSYTX PT&/FAMILY [address] [facility], [address] [place] [address], [id number] , [place] tel: [phone] [facility] Opioid use, unspecified, uncomplicatedDepres dm NOSGeneralized anxiety disorder 1 Wesly Beyer. [address] [place] [address], [address], [place]. tel: [phone] OFFICE/OUTPA TIENT VISIT, [facility], [address] [place] [address], [id number] , [place] tel: [phone] [facility] SUBOXONE (chief complaint) UDS (chief complaint) Opioid use, unspecified, uncomplicatedBody mass index [BMI]40.0-44.9, adultUrinary hesitancyTobacco abuseAnxiety Mar-0 5-202 1 Pavlock DO Max. [address], [place], [id number] , [place]. tel: [phone] OFFICE/OUTPA TIENT VISIT, [facility], [address], [place], [id number] , [place] tel: [phone] [facility] Suboxone (chief complaint) UDS (chief complaint) Opioid dependence, uncomplicatedBody mass index [BMI]40.0-44.9, adultCompression fracture of L1 vertebra, sequela 1 Pavlock DO Max. [address], [place], [id number] , [place]. tel: [phone] PSYTX PT&/FAMILY [address] [facility], [address] [place] [address], [id number] , [place] tel: [phone] [facility] Opioid use, unspecified, uncomplicatedDepres dm NOSGeneralized anxiety disorder 1 Wesly Beyer. [address] [place], [address], [place]. tel: [phone] [facility], [address], [place], 718786168 , [place] tel: [phone] [facility] Opioid use, unspecified, uncomplicatedDepres dm NOSGeneralized anxiety disorder 1 Wesly Beyer. [address] [place], [address], [place]. tel: [phone] OFFICE/OUTPA TIENT VISIT, [facility], [address], [place], [id number] , [place] tel: [phone] [facility] Suboxone (chief complaint) UDS (chief complaint) Opioid dependence, uncomplicatedBody mass index [BMI]40.0-44.9, adultUrinary hesitancyNerve pain 1 Pavlock DO Max. [address], [place], 852049976 , [place]. tel: [phone] PSYTX PT&/FAMILY [address] [facility], [address], [place], 567290579 , [place] tel: [phone] [facility] Opioid use, unspecified, uncomplicatedDepres dm NOSGeneralized anxiety disorder 1 Wesly Beyer. [address] [place], [address], [place]. tel: [phone] [facility], [address], [place], 746877807 , [place] tel: [phone] [facility] Opioid use, unspecified, uncomplicatedDepres dm NOSGeneralized anxiety disorder 0 Wesly Beyer. [address] [place], [address], [place]. tel: [phone] OFFICE/OUTPA TIENT VISIT, [facility], [address], [place], [id number] , [place] tel: [phone] [facility] Suboxone (chief complaint) UDS (chief complaint) Body mass index [BMI]40.0-44.9, adultOpioid dependence, uncomplicatedAnxiet y 0 [facility] [address], [place], [id number] , [place]. tel: [phone] PSYTX PT&/FAMILY [address] [facility], [address], [place], 586901772 , [place] tel: [phone] [facility] Opioid use, unspecified, uncomplicatedDepres dm NOSGeneralized anxiety disorder 0 Wesly Beyer. [address] [place], [address], [place]. tel: [phone] OFFICE/OUTPA TIENT VISIT, [facility], [address], [place], 755614365 , [place] tel: [phone] [facility] Suboxone (chief complaint) depression (chief complaint) Opioid dependence, uncomplicatedBody mass index [BMI]40.0-44.9, adultAnxietyUrinary tract infection without hematuria, site unspecified 0 Pavlock DO Max. [address], [place], [id number] , [place]. tel: [phone] PSYTX PT&/FAMILY [address] [facility], [address], [place], 124937040 , [place] tel: [phone] [facility] Opioid use, unspecified, uncomplicatedDepres dm NOSGeneralized anxiety disorder 0 Wesly Beyer. [address] [place], [address], [place]. tel: [phone] OFFICE/OUTPA TIENT VISIT, [facility], [address], [place], 346636010 , [place] tel: [phone] [facility] Suboxone (chief complaint) UDS (chief complaint) Opioid dependence, uncomplicatedBody mass index [BMI]40.0-44.9, adultCompression fracture of L1 vertebra, sequelaAnxiety 0 Pavlock DO Max. [address], [place], 727456139 , [place]. tel: [phone] PSYTX PT&/FAMILY [address] [facility], [address], [place], 719980112 , [place] tel: [phone] [facility] use, unspecified, uncomplicatedDepres dm NOSGeneralized anxiety disorder 0 Wesly Beyer. [address] [place], [address], [place]. tel: [phone] OFFICE/OUTPA TIENT VISIT, [facility], [address], [place], 240588535 , [place] tel: [phone] [facility] Suboxone (chief complaint) UDS (chief complaint) Opioid dependence, uncomplicatedBody mass index (BMI) 40.0-44.9, adultEdema extremitiesAnxiety 0 Pavlock DO Max. [address], [place], 269997735 , [place]. tel: [phone] PSYTX PT&/FAMILY [address] [facility], [address], [place], 303895265 , [place] tel: [phone] [facility] Opioid use, unspecified, uncomplicatedDepres dm NOSGeneralized anxiety disorder 0 Wesly Beyer. [address] [place], [address], [place]. tel: [phone] [facility], [address], [place], 272559921 , [place] tel: [phone] [facility] No Information 0 Wesly Hillcy. [address] [place], [address], [place]. tel: [phone] OFFICE/OUTPA TIENT VISIT, [facility], [address], [place], 482314713 , [place] tel: [phone] [facility] Suboxone (chief complaint) UDS (chief complaint) back pain (chief complaint) Uncomplicated opioid abuseBody mass index (BMI) 40.0-44.9, adultAnxietyCompres dm fracture of L1 vertebra, sequela 0 [place] DO Adams. [address], [place], 110573517 , [place]. tel: [phone] PSYTX PT&/FAMILY [address] [facility], [address] [place] [address], [id number] , [place] tel: [phone] [facility] Opioid use, unspecified, uncomplicatedDepres dm NOSGeneralized anxiety disorder 0 Wesly Beyer. [address] [place], [address], [place]. tel: [phone] OFFICE/OUTPA TIENT VISIT, [facility], [address], [place], 111996078 , [place] tel: [phone] [facility] Suboxone (chief complaint) UDS (chief complaint) depression (chief complaint) Uncomplicated opioid abuseBody mass index (BMI) 40.0-44.9, adultAnxietyDepress ion NOSDental abscess 0 Pavlock DO Max. [address], [place], 369579641 , [place]. tel: [phone] PSYTX PT&/FAMILY [address] [facility], [address], [place], 196446481 , [place] tel: [phone] [facility] Opioid use, unspecified, uncomplicatedDepres dm NOSGeneralized anxiety disorder 0 Wesly BRINDA Beyer. [address] [place], [address], [place]. tel: [phone] [facility], [address] [place] [address], [id number] , [place] tel: [phone] [facility] No Information 0 Wesly BRINDA Beyer. [address] [place], [address], [place]. tel: [phone] [facility], [address] [place] [address], [id number] , [place] tel: [phone] [facility] Urinary hesitancy 0 Pavlock DO Max. [address], [place], 841813828 , [place]. tel: [phone] OFFICE/OUTPA TIENT VISIT, EST [facility], [address], [place], 777188782 , [place] tel: [phone] [facility] Suboxone (chief complaint) UDS (chief complaint) Urinary symptoms (chronic) (chief complaint) Uncomplicated opioid abuseBody mass index (BMI) 40.0-44.9, adultLow back pain associated with a spinal disorder other than radiculopathy or spinal stenosisUrinary hesitancy 0 Pavlock DO Max. [address], [place], 136479664 , [place]. tel: [phone] PSYCH DIAGNOSTIC EVALUATION [facility], [address] [place] [address], [id number] , [place] tel: [phone] [facility] Opioid use, unspecified, uncomplicatedDepres dm NOSGeneralized anxiety disorder 0 Wesly Beyer. [address] [place], [address], [place]. tel: [phone] OFFICE/OUTPA TIENT VISIT, [facility], [address], [place], 057710967 , [place] tel: [phone] [facility] Swelling (chief complaint) Urinary tract infection without hematuria, site unspecified 0 Pavlock DO Max. [address], [place], 824111456 , [place]. tel: [phone] OFFICE/OUTPA TIENT VISIT, [facility], [address], [place], 384387991 , [place] tel: [phone] [facility] SUBOXONE (chief complaint) Drug Screen (chief complaint) depression (chief complaint) Uncomplicated opioid abuseBody mass index (BMI) 40.0-44.9, adultAnxietyPrimary osteoarthritis, unspecified site 0 Pavlock DO Max. [address], [place], 274103001 , [place]. tel: [phone] OFFICE/OUTPA TIENT VISIT, [facility], [address], [place], 670228275 , [place] tel: [phone] [facility] Suboxone (chief complaint) Chest pain (chief complaint) Uncomplicated opioid abuseChest pain at restAnxietyDizzines s 0 Pavlock DO Max. [address], [place], 376029066 , [place]. tel: [phone] OFFICE/OUTPA TIENT VISIT, [facility], [address], [place], 086847813 , [place] tel: [phone] [facility] SUBOXONE (chief complaint) DRUG SCREEN (chief complaint) Uncomplicated opioid abuseChronic GERD 0 Pavlock DO Max. [address], [place], 340895100 , [place]. tel: [phone] OFFICE/OUTPA TIENT VISIT, [facility], [address], [place], 841998055 , [place] tel: [phone] [facility] SUBOXONE (chief complaint) UDS (chief complaint) Dizziness (chief complaint) Body mass index (BMI) 40.0-44.9, adultUncomplicated opioid abuseDizzinessEdema extremities 0 Pavlock DO Max. [address], [place], 201339930 , [place]. tel: [phone] OFFICE/OUTPA TIENT VISIT, [facility], [address], [place], 426230670 , [place] tel: [phone] [facility] SUBOXONE (chief complaint) DRUG SCREEN (chief complaint) Dizziness (chief complaint) Body mass index (BMI) 40.0-44.9, adultUncomplicated opioid abuseAnxietyTobacco abuse 0 Pavlock DO Max. [address], [place], 521836248 , [place]. tel: [phone] OFFICE/OUTPA TIENT VISIT, [facility], [address], [place], 122671402 , [place] tel: [phone] [facility] SUBOXONE (chief complaint) DRUG SCREEN (chief complaint) Swelling (chief complaint) Uncomplicated opioid abuseBody mass index (BMI) 40.0-44.9, adultAnxietyInsomni a, unspecified typeEdema extremities 0 Pavlock DO Max. [address], [place], 470158290 , [place]. tel: [phone] OFFICE/OUTPA TIENT VISIT, [facility], [address], [place], 193527491 , [place] tel: [phone] [facility] SUBOXONE (chief complaint) DRUG SCREEN (chief complaint) Uncomplicated opioid abuseBody mass index (BMI) 40.0-44.9, adultAnxietyTobacco abuse Aug- 9 Pavlock DO Max. [address], [place], 704024285 , [place]. tel: [phone] OFFICE/OUTPA TIENT VISIT, [facility], [address], [place], 326431422 , [place] tel: [phone] [facility] SUBOXONE (chief complaint) DRUG SCREEN (chief complaint) back pain (chief complaint) Uncomplicated opioid abuseBody mass index (BMI) 38.0-38.9, adultTobacco abuseAnxietyBronchi tisLow back pain associated with a spinal disorder other than radiculopathy or spinal stenosis 9 Pavlock DO Max. [address], [place], 980951807 , [place]. tel: [phone] OFFICE/OUTPA TIENT VISIT, [facility], [address], [place], 066520616 , [place] tel: [phone] [facility] SUBOXONE (chief complaint) DRUG SCREEN (chief complaint) Uncomplicated opioid abuseBody mass index (BMI) 38.0-38.9, adultLow back pain associated with a spinal disorder other than radiculopathy or spinal stenosis 9 Pavlock DO Max. [address], [place], 698034623 , [place]. tel: [phone] OFFICE/OUTPA TIENT VISIT, [facility], [address], [place], 399283211 , [place] tel: [phone] [facility] SUBOXONE (chief complaint) DRUG SCREEN (chief complaint) Degenerative disc disease, cervicalCompression fracture of L1 vertebra, sequelaLow vitamin D levelAnxietyUncompl icated opioid abuseBody mass index (BMI) 38.0-38.9, adult 9 Pavlock DO Max. [address], [place], 711088916 , [place]. tel: [phone] OFFICE/OUTPA TIENT VISIT, [facility], [address], [place], 887566752 , [place] tel: [phone] [facility] SUBOXONE (chief complaint) DRUG SCREEN (chief complaint) back pain (chief complaint) Body mass index (BMI) 39.0-39.9, adultUncomplicated opioid abuseLow back pain associated with a spinal disorder other than radiculopathy or spinal stenosisAnxiety 9 Pavlock DO Max. [address], [place], 546906494 , [place]. tel: [phone] [facility], [address], [place], 263132015 , [place] tel: [phone] [facility] Low back pain associated with a spinal disorder other than radiculopathy or spinal stenosis 9 Pavlock DO Max. [address], [place], 503814273 , [place]. tel: [phone] OFFICE/OUTPA TIENT VISIT, [facility], [address], [place], 414674946 , [place] tel: [phone] [facility] SUBOXONE (chief complaint) DRUG SCREEN (chief complaint) Uncomplicated opioid abuseBody mass index (BMI) 39.0-39.9, adultLow back pain associated with a spinal disorder other than radiculopathy or spinal stenosisAnxiety 9 [facility] [address], [place], 329403685 , [place]. tel: [phone] OFFICE/OUTPA TIENT VISIT, [facility], [address], [place], 478548249 , [place] tel: [phone] [facility] SUBOXONE (chief complaint) DRUG SCREEN (chief complaint) Uncomplicated opioid abuseBody mass index (BMI) 39.0-39.9, adultAnxietyDegener ative disc disease, cervicalLow back pain associated with a spinal disorder other than radiculopathy or spinal stenosis 9 Pavlock DO Max. [address], [place], 036056611 , [place]. tel: [phone] OFFICE/OUTPA TIENT VISIT, [facility], [address], [place], 821071891 , [place] tel: [phone] [facility] SUBOXONE (chief complaint) DRUG SCREEN (chief complaint) Body mass index (BMI) 38.0-38.9, adultUncomplicated opioid abuseAnxiety 9 [facility] [address], [place], 330493310 , [place]. tel: [phone] OFFICE/OUTPA TIENT VISIT, [facility], [address], [place], 929439588 , [place] tel: [phone] [facility] SUBOXONE (chief complaint) DRUG SCREEN (chief complaint) Body mass index (BMI) 39.0-39.9, adultUncomplicated opioid abuseAnxietyLow back pain associated with a spinal disorder other than radiculopathy or spinal stenosis 9 [facility]. [address], [place], 033923930 , [place]. tel: [phone] OFFICE/OUTPA TIENT VISIT, [facility], [address], [place], 576413801 , [place] tel: [phone] [facility] SUBOXONE (chief complaint) DRUG SCREEN (chief complaint) Body mass index (BMI) 40.0-44.9, adultBronchitisDege nerative disc disease, cervicalAnxietyUnco mplicated opioid abuse 9 [facility]. [address], [place], 024707719 , [place]. tel: [phone] [facility], [address], [place], 725247544 , [place] tel: [phone] [facility] Suboxone (chief complaint) Drug Screen (chief complaint) Body mass index (BMI) 40.0-44.9, adultAnxietyUncompl icated opioid abuse 9 [facility]. [address], [place], 665705372 , [place]. tel: [phone] [facility], [address] [place] [address], [id number] , [place] tel: [phone] [facility] Degenerative disc disease, cervicalLow back pain associated with a spinal disorder other than radiculopathy or spinal stenosis 9 Pavlock DO Max. [address], [place], 721279032 , [place]. tel: [phone] OFFICE/OUTPA TIENT VISIT, [facility], [address], [place], 896321393 , [place] tel: [phone] [facility] Suboxone (chief complaint) Drug Screen (chief complaint) Body mass index (BMI) 40.0-44.9, adultUncomplicated opioid abuseLow back pain associated with a spinal disorder other than radiculopathy or spinal stenosisAnxiety 9 Pavlock DO Max. [address], [place], 550975186 , [place]. tel: [phone] [facility], [address], [place], 086774595 , [place] tel: [phone] [facility] Suboxone (chief complaint) Drug Screen (chief complaint) Body mass index (BMI) 39.0-39.9, adultUncomplicated opioid abuseInsomnia, unspecified typeAnxiety 9 Pavlock DO Max. [address], [place], 992475354 , [place]. tel: [phone] [facility], [address], [place], 849105958 , [place] tel: [phone] [facility] Drug Screen (chief complaint) Suboxone (chief complaint) Body mass index (BMI) 40.0-44.9, adultDegenerative disc disease, cervicalAnxietyUnco mplicated opioid abuseLow back pain associated with a spinal disorder other than radiculopathy or spinal stenosis 9 Pavlock DO Max. [address], [place], 723288598 , [place]. tel: [phone] [facility], [address] [place] [address], [id number] , [place] tel: [phone] [facility] Suboxone (chief complaint) Drug Screen (chief complaint) Body mass index (BMI) 40.0-44.9, adult 9 [facility]. [address], [place], 223895769 , [place]. tel: [phone] OFFICE/OUTPA TIENT VISIT, EST [facility], [address], [place], 371861223 , [place] tel: [phone] [facility] check up (chief complaint) Body mass index (BMI) 40.0-44.9, adultHypertension, unspecified typeEdema extremitiesInsomnia , unspecified typeConstipation due to opioid therapyAdverse effect of other opioids, initial encounter 9 [facility]. [address] [place] [address], [id number] , [place]. tel: [phone] [facility], [address] [place] [address], [id number] , [place] tel: [phone] [facility] Suboxone (chief complaint) drug screen (chief complaint) sick (chief complaint) Uncomplicated opioid abuseBronchitisHype rtension, unspecified typeRaynaud's phenomenon without gangreneDegenerativ e disc disease, cervicalAnxietyBody mass index (BMI) 39.0-39.9, adult 9 [facility]. [address] [place], [place], [id number] , [place]. tel: [phone] [facility], [address] [place] [address], [id number] , [place] tel: [phone] [facility] No Information 9 [facility]. [address] [place] [address], [id number] , [place]. tel: [phone] Family History Family Member Type Diagnosis Age At Onset Mother Problem (finding) hypertension Mother Problem (finding) Blood disorder Immunizations Vaccine Date Status Comments Hep A (adult) administered Source: New Im munization Record Payers Payer name Insurance type Covered constitution party ID Aaron monroy(s) [place] [id number] [facility] [id number] Social History Type Description Quantity Date Captured Comments Alcohol Use Details Unknown Caffeine Use Details Unknown Tobacco Use Status Smoking Status No Information Sex Female Sexual Orientation Straight or heterosexual Sep Gender Identity Female Chief Complaint And Reason For Visit No Information Reason For Referral Reason For Referral No Information Plan Of Treatment Date Type Action Status Goal FIT-DNA. Due on due Goal Lipid panel. Due on 029 due Goal Depression screening. Due on due Goal Influenza vaccine. Due on Oc due Goal PRAPARE ASSESSMENT. Due on O due Goal FOBT. Due on due Goal Hepatitis C screening. Due o n due Goal Mammogram. Due on due Goal Urinalysis due Goal ECG. Due on due Goal Tdap. Due on due Goal CT-Colonography. Due on due Goal Tdap Vaccine. Due on 2024 due Goal HPV. Due on due Goal Colonoscopy. Due on 025 due Goal Zoster vaccine (1st). Due on due Goal Unhealthy drug use screening . Due on due Goal FIT. Due on due Goal Zoster vaccine (1st). Due on due Goal FIT. Due on due Goal PRAPARE ASSESSMENT. Due on due Goal Colonoscopy. Due on due Goal CT-Colonography. Due on due Goal Depression screening. Due on due Goal Lipid panel. Due on due Goal Unhealthy drug use screening . Due on due Goal Tdap. Due on due Goal FOBT. Due on due Goal Tdap Vaccine. Due on 2024 due Goal HPV. Due on due Goal Influenza vaccine. Due on due Goal Mammogram. Due on due Goal FIT-DNA. Due on due Goal ECG. Due on due Goal Urinalysis due Goal Hepatitis C screening. Due o n due Goal Influenza vaccine. Due on due Goal Depression screening. Due on due Goal HPV. Due on due Goal FOBT. Due on due Goal Unhealthy drug use screening . Due on due Goal ECG. Due on due Goal Zoster vaccine (). Due on due Goal Lipid panel. Due on due Goal Tdap Vaccine. Due on 2024 due Goal Hepatitis C screening. Due o n due Goal FIT. Due on due Goal FIT-DNA. Due on due Goal Mammogram. Due on due Goal Colonoscopy. Due on due Goal Tdap. Due on due Goal CT-Colonography. Due on due Goal PRAPARE ASSESSMENT. Due on J due Goal Urinalysis due Goal FIT-DNA. Due on due Goal Colonoscopy. Due on due Goal Influenza vaccine. Due on Oc due Goal Mammogram. Due on due Goal Lipid panel. Due on 029 due Goal ECG. Due on due Goal CT-Colonography. Due on due Goal Urinalysis due Goal PRAPARE ASSESSMENT. Due on O due Goal Zoster vaccine (). Due on due Goal Unhealthy drug use screening . Due on due Goal Depression screening. Due on due Goal FIT. Due on due Goal Hepatitis C screening. Due o n due Goal Tdap Vaccine. Due on 2023 due Goal Tdap. Due on due Goal HPV. Due on due Goal FOBT. Due on due Goal Tobacco cessation counseling completed Goal Tobacco cessation counseling completed Goal Lipid panel. Due on due Goal ECG. Due on due Goal Tdap. Due on due Goal Depression screening. Due on due Goal Urinalysis due Goal Influenza vaccine. Due on due Goal ECG. Due on due Goal Urinalysis due Goal ECG. Due on due Goal Urinalysis due Goal Tobacco cessation counseling completed Goal Dietary management education , guidance, and counseling completed Goal ECG. Due on due Goal Urinalysis due Goal Tobacco cessation counseling completed Goal Dietary management education , guidance, and counseling completed Goal ECG. Due on due Goal Urinalysis due Goal Tobacco cessation counseling completed Goal Dietary management education , guidance, and counseling completed Goal ECG. Due on due Goal Urinalysis due Goal Urinalysis due Goal ECG. Due on due Goal Urinalysis due Goal ECG. Due on due Goal Tobacco cessation counseling completed Goal Dietary management education , guidance, and counseling completed Goal ECG. Due on due Goal Urinalysis due Goal Tobacco cessation counseling completed Goal ECG. Due on due Goal Urinalysis due Goal Urinalysis due Goal ECG. Due on due Goal Dietary management education , guidance, and counseling completed Goal Tobacco cessation counseling completed Goal Urinalysis due Goal ECG. Due on due Goal Urinalysis due Goal ECG. Due on due Goal Tobacco cessation counseling completed Goal Dietary management education , guidance, and counseling completed Goal Urinalysis due Goal ECG. Due on due Goal Tobacco cessation counseling completed Goal Dietary management education , guidance, and counseling completed Goal ECG. Due on due Goal Urinalysis due Goal ECG. Due on due Goal Urinalysis due Goal Dietary management education , guidance, and counseling completed Goal ECG. Due on due Goal Urinalysis. Due on due Goal Tobacco cessation counseling completed Goal Dietary management education , guidance, and counseling completed Goal ECG. Due on due Goal Urinalysis due Goal Urinalysis due Goal ECG. Due on due Goal Tobacco cessation counseling completed Goal Dietary management education , guidance, and counseling completed Goal Urinalysis due Goal ECG. Due on due Goal Urinalysis due Goal ECG. Due on due Goal ECG. Due on due Goal Urinalysis due Goal Tobacco cessation counseling completed Goal Dietary management education , guidance, and counseling completed Goal ECG. Due on due Goal Urinalysis. Due on due Goal ECG. Due on due Goal Urinalysis. Due on due Goal Urinalysis. Due on due Goal ECG. Due on due Goal Dietary management education , guidance, and counseling completed Goal Tobacco cessation counseling completed Goal Urinalysis. Due on due Goal ECG. Due on due Goal Urinalysis. Due on due Goal ECG. Due on due Goal Tobacco cessation counseling completed Goal Dietary management education , guidance, and counseling completed Goal Urinalysis. Due on due Goal ECG. Due on due Goal Urinalysis. Due on due Goal ECG. Due on due Goal Tobacco cessation counseling completed Goal Dietary management education , guidance, and counseling completed Goal Urinalysis. Due on due Goal ECG. Due on due Goal ECG. Due on due Goal Urinalysis. Due on due Goal Tobacco cessation counseling completed Goal Dietary management education , guidance, and counseling completed Goal Urinalysis. Due on due Goal ECG. Due on due Goal ECG. Due on due Goal Urinalysis. Due on due Goal Tobacco cessation counseling completed Goal Dietary management education , guidance, and counseling completed Goal ECG. Due on due Goal Urinalysis. Due on due Goal Urinalysis. Due on due Goal ECG. Due on due Goal Tobacco cessation counseling completed Goal Dietary management education , guidance, and counseling completed Goal ECG. Due on due Goal Urinalysis. Due on due Goal Urinalysis. Due on due Goal ECG. Due on due Goal ECG. Due on due Goal Urinalysis. Due on due Goal Tobacco cessation counseling completed Goal Dietary management education , guidance, and counseling completed Goal ECG. Due on due Goal Urinalysis. Due on due Goal Urinalysis. Due on due Goal ECG. Due on due Goal Tobacco cessation counseling completed Goal Dietary management education , guidance, and counseling completed Goal ECG. Due on due Goal Urinalysis. Due on due Goal Tobacco cessation counseling completed Goal Tobacco cessation counseling completed Goal Tobacco cessation counseling completed Goal Dietary management education , guidance, and counseling completed Goal Tobacco cessation counseling completed Goal Dietary management education , guidance, and counseling completed Goal Dietary management education , guidance, and counseling completed Goal Tobacco cessation counseling completed Goal Tobacco cessation counseling completed Goal Dietary management education , guidance, and counseling completed Goal Tobacco cessation counseling completed Goal Dietary management education , guidance, and counseling completed Goal Dietary management education , guidance, and counseling completed Goal Tobacco cessation counseling completed Goal Tobacco cessation counseling completed Goal Dietary management education , guidance, and counseling completed Goal Tobacco cessation counseling completed Goal Dietary management education , guidance, and counseling completed Goal Tobacco cessation counseling completed Goal Dietary management education , guidance, and counseling completed Goal Dietary management education , guidance, and counseling completed Goal Tobacco cessation counseling completed Goal Tobacco cessation counseling completed Goal Dietary management education , guidance, and counseling completed Goal Tobacco cessation counseling completed Goal Tobacco cessation counseling completed Goal Dietary management education , guidance, and counseling completed Goal Dietary management education , guidance, and counseling completed Goal Tobacco cessation counseling completed Goal Tobacco cessation counseling completed Goal Dietary management education , guidance, and counseling completed Goal Dietary management education , guidance, and counseling completed Goal Tobacco cessation counseling completed Goal Dietary management education , guidance, and counseling completed Goal Tobacco cessation counseling completed Goal Dietary management education , guidance, and counseling completed Goal Tobacco cessation counseling completed Goal Dietary management education , guidance, and counseling completed Goal Dietary management education , guidance, and counseling completed Goal Tobacco cessation counseling completed Goal Dietary management education , guidance, and counseling completed Goal Tobacco cessation counseling completed Referral Ordered: COLONOSCOPY AND BIOPSY [id number] Ordered: home health (related to Low back pain associated with a spinal disorder other than radiculopathy orspinal stenosis) [id number] Referred To: home health Ordered: Referrals: home health [id number] Ordered: Physical Therapy (related to Compression fracture of L1 vertebra, sequela) [id number] Referred To: Physical Therapy Ordered: Referrals: Physical Therapy [id number] Ordered: Urology (related to Urinary hesitancy) [id number] Ordered: Referrals: Urology [id number] Ordered: Referrals: Otolaryngology [id number] Ordered: Referrals: Gynecology. Consult [id number] Ordered: DXA BONE DENSITY, AXIAL Appointment date/timeframe: 07/03/2019 [id number] Ordered: X-Ray Exam Of Spine, Cerv, 2 Or 3 Views Appointment date/timeframe: 07/03/2019 [id number] Ordered: Neurosurgery (related to Degenerative disc disease, cervical) [id number] Ordered: Plastic Surgery (related to Low back pain associated with a spinal disorder other than radiculopathy or spinal stenosis) [id number] Ordered: Referrals: Plastic Surgery [id number] Ordered: X-Ray Exam Of Thoraci Spine 3 Views [id number] Ordered: Referrals: Neurosurgery Appointment date/timeframe: 01/01/2019 [id number] Order: Lab OrderB-Type Natriuretic Peptide ([id number]), Ordered on: [id number] Order: Lab OrderComp. Metabolic Panel (14) ([id number]), Ordered on: [id number] History Of Present Illness Encounter Date Complaint History Of Prese nt Illness Establish Care Patient is here to establish care. Patient has not been to a primary care doctor since last month. Previous doctor went to hospitalist role and she did not mesh well with replacement nurse practicitioner. Patient is needing medications to be filled. [facility] [place]. Patient denies any other issues at this time. Patient is not up to date on colonoscopy but would not like to be scheduled at this time. Patient is not up to date on VICE [employer]IDENT [employer], however she is unsure if she'd like [...] last filled Valium 06/17, Ambien 06/26, Suboxone 06/17TGkwamei LPNPt has appointment with new provide set [...] she was evaluated again last Tuesday @ [facility] d/t stomach pain and N/V. Pt denies any new issues or concerns. MERA Healy ,above was reviewed and agreed with P [...] 05/01, Valium 04/21, Flexeril 04/15 & Suboxone Grodi LPNPt was in the Er with abdominal [...] on her lower back. No other complaints. KconleyRNRUDS: positive for BUP,BZO and TCA. ,above was reviewed and agreed with [facility] UDS UDS-positive for BUP, BZO, TCA. MERA [...] Healy ,above was reviewed and agreed with [facility] UDS UDS- positive fo r BUP, BZO. [...] phone call to schedule 4 week f/u. Mejia Healy states she is doing ok with the [...] Xavier. ,above was reviewed and agreed with [facility] SUBOXONE Pt here for Subo xone refills, she has been on 16mg since 2016. Pt attends counseling with KAYLEEN JARRELL. OARRS completed, last filled Suboxone on 02/08/21, Zolpidem on 10/13/20, Diazepam 2/4/21. Pt c/o lower back pain and b/l hand pain and numbness. Pt also c/o dark foul smelling urine for past week, denies burning or urgency with urination. BRICE Healyt has finally got in with the back specialist and he has her schedule for surgery, Pt states the surgery is now mid december. ,above was reviewed and agreed with [facility] UDS UDS+ BUP, BZO. Cirilo Pereira RN UDS UDS performed, p t + for BUP & BENZOTGrodi MATERIAL CONTROL SPECIALIST Suboxone Pt here today fo r Suboxone [...] Pt states the called Dr. Kwok at [facility] and he said to call and she is scheduled to see him on 10/16 @ 1:20 in his office. Pt is attending counseling with Kayleen Grant completed, last filled Ambien 09/15, Suboxone 09/13, Valium 09/11TGrodi MATERIAL CONTROL SPECIALIST ,above was reviewed and agreed with [facility] UDS UDS performed, p t + for BUP & BENZOTGrodi MATERIAL CONTROL SPECIALIST Suboxone Pt here today fo r Suboxone refill. PT HAS BEEN ON 16MG SINCE 2016. Pt is attending counseling with Kayleen Bruno states she thinks she is on the [...] Ambien 07/21, Suboxone 07/19 & Valium 07/17TGrodi MATERIAL CONTROL SPECIALIST UDS UDS performed, p t + for BUP & BENZOTGrodi MATERIAL CONTROL SPECIALIST depression There is worseni ng of previously [...] Xavier. ,above was reviewed and agreed with [facility] Suboxone Pt here today fo r Suboxone [...] p t + for BUP & BENZOTGrodi MATERIAL CONTROL SPECIALIST Suboxone Pt here today fo r Suboxone [...] p t + for BUP & BENZOTGrodi MATERIAL CONTROL SPECIALIST back pain The problem is s table. [...] Ambien 03/31, Suboxone 03/27, & Valium 03/21TGrodi MATERIAL CONTROL SPECIALIST UDS UDS performed, p t + for BUP & BENZOTGrodi MATERIAL CONTROL SPECIALIST Suboxone Pt here today fo r Suboxone film refill. PT HAS BEEN ON 16MG SINCE 2016. Pt is attending counseling with Kayleen Bruno states that she has not made it [...] teeth so she is going to see [facility] on Tuesday at 12:30pm. Pt states [...] Ambien 03/01, Suboxone 02/25 & Valium 02/23TGrodi MATERIAL CONTROL SPECIALIST UDS UDS performed, p t + for BUP & BENZOTGrodi MATERIAL CONTROL SPECIALIST depression This is a follow up visit. [...] attended a counseling apt today with Kayleen JarrellPT states she had an accident last night [...] Ambien 01/31, Valium 01/27, & Suboxone 01/24TGrodi MATERIAL CONTROL SPECIALIST UDS UDS performed, p t + for BUP & BENZOTGrodi MATERIAL CONTROL SPECIALIST Swelling The swelling occ urred suddenly and [...] for 10 days, Gabapentin 01/13, Ambien 01/01TGrodi MATERIAL CONTROL SPECIALIST Drug Screen Rapid urine drug screen performed, pt + for BUP & BENZOTGrodi MATERIAL CONTROL SPECIALIST depression There is worseni ng of previously [...] [facility] 2016.[facility]. Pt [facility] [...] Ambien 01/01, Suboxone 12/21 & Valium 12/19TGrodi MATERIAL CONTROL SPECIALIST SUBOXONE pt here today fo r Suboxone [...] about this. PT is attending counseling at [facility] in [facility] NEEDS REFILLS ON FLEXERIL, VALIUM, LASIX, LISINOPRIL/HCTZ, MIRALAX, OMEPRAZOLE, ALDACTONE & WELLBUTRIN. OARRS completed last filled Ambien 11/22, Valium 11/24, & Suboxone 11/21TGrodi MATERIAL CONTROL SPECIALIST ,above was reviewed and agreed with [facility] DRUG SCREEN Rapid urine drug screen performed, pt + for BUP & BENZOTGrodi MATERIAL CONTROL SPECIALIST UDS UDS+ BUP, BZO. Cirilo Kinsey RN SUBOXONE Pt here for Subo xone refill. Pt has been on 16mg since 2016. Pt is going to [facility] for counseling. OARRS COMPLETED, LAST FILLED ZOLPIDEM 11/03, DIAZEPAM 10/31, SUBOXONE 10/27. Pt c/o nausea and dizziness, denies any further issues or concerns. Jes TESFAYE Dizziness Onset was 3 mariela hs ago. [...] HAS BEEN ON 16MG SINCE 2017. PT was recently in ER for Vertigo. [...] ON LISINOPRIL/HCTZ, Pt is attending counseling at [facility] in [place]. Pt was last seen 2/3 for an apt and is rescheduled today at 2PM. OARRS completed, last filled Ambien 10/06, Gabapentin 10/04, Valium 10/01, & Suboxone 09/27TGrodi MATERIAL CONTROL SPECIALIST DRUG SCREEN Rapid urine drug screen performed, pt + for BUP & BENZOTGrodi MATERIAL CONTROL SPECIALIST Swelling The swelling is constant. The severity [...] NICOTINE PATCHES Pt is attending counseling with [facility] in [place]. Pt states she has an apt on TuesdayPt states she has an apt with Dr. Hurt on 10/04. OARRS completed, last filled Valium 09/08, Ambien 09/06, & Suboxone 08/30TGrodi [facility] DRUG SCREEN Rapid urine drug screen performed, pt + for BUP & BENZOTGrodi MATERIAL CONTROL SPECIALIST SUBOXONE Pt here today fo r Suboxone film refill. PT HAS BEEN ON 16 MG SINCE 2016. Pt is attending counseling at [facility] in [place]. Talked to Mel from there verifying patients [...] performed, pt + for BUP & BENZOTGrodi MATERIAL CONTROL SPECIALIST back pain Severity level i s moderate-severe. [...] HAS BEEN ON 16MG SINCE 2016. PT states she thinks she has bronchitis. PT states it has been going on for about a week and a half. Pt has thick mucous coming up. PT has chest tightness. Pt states that she found out why they have not scheduled her surgery. Pt states at [facility] will not perform any surgeries on a patient who smokes. Pt states she now needs to quit smoking. Pt is requesting Nicotine Patches. Pt states that she has to be 2 weeks smoke free before they will do the surgery. PT states she switched counseling services. PT states she has an apt today at [facility] in [place]. PT states her dad tried to commit [...] Suboxone 07/19, Gabapentin 07/19, & Valium 07/19TGrodi MATERIAL CONTROL SPECIALIST DRUG SCREEN Rapid urine drug screen performed, pt + for BUP & BENZOTGrodi MATERIAL CONTROL SPECIALIST SUBOXONE Pt here today fo r Suboxone [...] do . Pt is attending counseling at [facility]. Pt has an apt on 07/25. Told [...] performed, pt + for BUP & BENZOTGrodi MATERIAL CONTROL SPECIALIST SUBOXONE PT here today fo r Suboxone film refill. PT HAS BEE ON 16MG SINCE 06/14/2017Pt is attending counseling at [facility]. PT was last there on 05/02, missed [...] Performed oral swab on patient today. TGrodi MATERIAL CONTROL SPECIALIST SUBOXONE Pt here today fo r Suboxone film refill. Pt is attending counseling at [facility] in [place]. Pt states she has been to counseling once this month and had to cancel once because of her tooth pain. Pt is rescheduled on 04/28 for an apt. PT states her MRI's were approved, pt states she is going to call today to make an apt. Pt has an apt with [facility] on 06/12Pt states she is sore today, [...] Ambien 05/15, Suboxone 04/26 & Gabapentin 04/22TGrodi MATERIAL CONTROL SPECIALIST DRUG SCREEN Rapid urine drug screen performed, pt + for BUP & BENZOTGrodi MATERIAL CONTROL SPECIALIST back pain The problem is s table. It occurs persistently. Location of pain is middle back and lower back. Symptoms are aggravated by coughing and daily activities. SUBOXONE Pt here today fo r Suboxone film refill. PT is attending counseling at [facility] in [place]. Pt was there on March 28 and [...] performed, pt + for BUP & BENZOTGrodi MATERIAL CONTROL SPECIALIST SUBOXONE PT here today fo r Suboxone film refill. PT is attending counseling at [facility] in [place]. PT has a note today from an apt she attended on 03/28 and has another note stating she has 2 more apts on Apr 20 & Apr 30. Pt has her neurology apt on April [address] Summers in [place]. Pt states that within the last 7 [...] performed, pt + for BUP & BENZOTGrodi MATERIAL CONTROL SPECIALIST DRUG SCREEN Rapid urine drug screen performed.Patient positive for BUP & BZO.Fentanyl negativeJanusz Lee SUBOXONE Patient presents for Suboxone refill. Patient is very upset and worried, states her threw out some of her Suboxone films.States she has not been to counseling yet. States she no showed at [facility] and now owes a lot of money. [...] 02/19/19. No other concerns at this time.--Janusz Gardner.Pt called hospice because she feels that she needs to start with grief counseling before she can more on so she call them. SUBOXONE Pt here today fo r Suboxone. Pt attended an assessment at [facility] on February 05. Pt has a note that she went on 02/12 for an apt. Pt states she fell on Tuesday and injured her face. She said she went to [place] [facility]. She said she has a headache. [...] first, a reduction may help in the longterm but the back is the major problem DRUG SCREEN Rapid urine drug screen performed, pt + for BUP & BENZOFentanyl NEGTGrodi MATERIAL CONTROL SPECIALIST SUBOXONE Pt here today fo r Suboxone [...] last filled Ambien 01/17, Valium & Suboxone /TGrodi MATERIAL CONTROL SPECIALIST DRUG SCREEN Rapid urine drug screen performed, pt + for BUP, BENZO, Fentanyl POSTGrodi MATERIAL CONTROL SPECIALIST Suboxone Pt here today fo r Suboxone film refill. PT states she is going to counseling at [facility] in [place]. She said she has an apt tomorrow [...] last filled Ambien 12/20, Valium & Suboxone /2TGrodi MATERIAL CONTROL SPECIALIST ,above was reviewed and agreed with Drug Screen Rapid urine drug screen performed, Pt + for BUP & BenzoFentanyl negTGrodi MATERIAL CONTROL SPECIALIST Suboxone Patient here for Suboxone films. Patient forgot her films today. Also patient is not seeing a counselor at this time but attending meetings in [place].OARRS completed. Last fills- Zlppidem 12.5mg 11/21/18, Diazepam 5mg 11/07/18 and Suboxone 11/07/18. Allen Xavier.Pt is still having a lot of lower back pain and does have larger breast. Drug Screen Urine rapid scre en. Positive for BZO and BUPFentanyl-neg. Allen Xavier. Drug Screen Rapid urine drug screen performed, pt + for Benzo & BuprenorphineFentanyl -KARENroddominique VILLA Suboxone Pt here for Subo xone film refill. Pt states she is not attending counseling but NA/AA meetings. I informed her that there is a new law that they have to attend counseling or they will be tapered off. She said she is going to set up counseling. Pt has films with her today. OARRS completed, last filled Ambien 10/24, Valium & Suboxone 10/10 TGrodi MATERIAL CONTROL SPECIALIST Pt states doing well not having any [...] completed, last filled Suboxone diazepam 09/12, ambien 09/26.KARENrodi ALLEN Drug Screen Rapid urine drug screen performed, pt for Benzo & Buprenorphine. TGrodi MATERIAL CONTROL SPECIALIST Suboxone Drug Screen check up Pt here today fo r a check up and a refill on medications. Pt wants her Ambien ER, Flexeril, Lasix,Pt states she has swelling in her both legs. She will get blisters with these. Pt states it does not happen all the time. Pt states she never took the Doxycycline cause she started to feel better. OARRS completed. TGroddominique LPNPt states the swelling of her legs [...] calling her previous grief counselor, Meghan at [facility], to continue counseling. She is having a [...] No Information Instructions Date Instruction Additional Infor benjamin Giving encouragement to exercise Related to Body [...]
--- OUTSIDE RECORDS SUMMARY | 2025-07-18 06:20 | XMS_ITS ---
Author Organization The [facility] [place] Address [address] [place] [address] Care Team Providers Care Financial Aid Advisor Name Role Phone Pako Johnson Do Primary Care Provider Unavaila Weston Mora Jr Unavailable [phone] REASON FOR VISIT Self Ref- urinary issues since post op back surgery -aden cath in place (has been seen at [facility]) anthanita Encounters Encounter Location Date Provider Diagnosis Urology [address] [place] [address] 07/18/2025 Weston Ma Jr Plan Of Treatment No Information Progress Notes * Bhanu AVILEZOB:1975 ([age] yo F)Acc No.[id number]:07/18/2025 UNLOCKED PROGRESS NOTE Progress Note Patient: Orquidea LYNCH :?Weston Cirilo Johnsongh MDDOB:1975???Age:50 Y ???Sex:FemaleDate:07/18/2025Phone:[phone]:[address] [place], [id number]:Pako Johnson Do Subjective: * Chief Complaints: * 1 . Self Ref- urinary issues since post op back surgery -aden cath in place (has been seen at [facility]) anthem. * Medical History: Objective: * Vitals: Assessment: Plan: * Treatment: * * Electronic signature of Weston Ma Jr, MD, [id number] on 07/27/2025 at 09:04 PM ESTSign off status: PendingVisit Status:?R/S (Rescheduled) * Provider: Dane Ma MD Date: 1 09/17/2024 Generated for Printing/Faxing/eTransmitting on:?07/27/2025 09:04 PM EST
--- OUTSIDE RECORDS SUMMARY | 2025-07-24 08:00 | XMS_ITS ---
Author Organization [facility] in [place] Address [address] [place] [address] Care Team Providers Care Program Director/Air Personality Name Role Phone Pako Johnson Do Primary Care Provider Unavaila Cristopher Duran [phone] REASON FOR VISIT Self Ref- urinary issues since post op back surgery -aden cath in place (has been seen at [facility]) anthanita Encounters Encounter Location Date Provider Diagnosis Urology [address] [place] [place] [address] 07/24/2025 Cristopher George Plan Of Treatment No Information Progress Notes * JESUS NancieFredOB:1975 ([age] yo F)Acc No.[id number]:07/24/2025 UNLOCKED PROGRESS NOTE Progress Note Patient: Orquidea LYNCH :?KIMBERLI JonesOB:1975???Age:50 Y ???Sex:FemaleDate:07/24/2025Phone:[phone]:[address] [place], [id number]:Pako Johnson Do Subjective: * Chief Complaints: * 1 . Self Ref- urinary issues since post op back surgery -aden cath in place (has been seen at [facility]) anthem. * Medical History: Objective: * Vitals: Assessment: Plan: * Treatment: * * Electronic signature of Cristopher George MD, [id number] on 07/27/2025 at 09:05 PM ESTSign off status: PendingVisit Status:?CANC (Cancelled) * Provider: George George MD Date: 09/23/2024 Generated for Printing/Faxing/eTransmitting on:?07/27/2025 09:05 PM EST
[2025-07-27] VITALS (15 sets, daily range): BP systolic 112–149; BP diastolic 71–93; PULSE 89–115; TEMP 36.7; O2SAT 91–99; BMI 32.9
--- NOTE | 2025-07-27 20:12 | XR_ITS ---
[facility] [place] [id number] Patient Name: MORALES LEE MRN: [id number] date: 1975 Sex: F Assigned Patient Location: ER Current Patient Location: Accession/Order Number: [id number] Exam Date: 07/27/2025 20:15 Report Date: 07/28/2025 09:39 At the request of: LALI BENITEZ MD Procedure: XR chest 1V Single view chest: CLINICAL HISTORY: short of breath COMPARISON: Chest 04/30/2025 FINDINGS: The heart is normal in size. Chronic elevation the right hemidiaphragm. No lung consolidation pneumothorax pleural effusion or free air. Spinal fixation rods. XR/XR chest 1V IMPRESSION: NO ACUTE PROCESS. Impression dictated by: Richard Caceres Jr., D.O. 07/28/2025 9:39 AM Dictation Location[facility] Electron[facility] authenticated by: [id number] Y Date: 07/28/2025 09:39
--- NOTE | 2025-07-27 20:13 | ED.GENADUL1 ---
HPI HPI - General Adult General Chief complaint: Shortness of Breath/Dyspnea Stated complaint: sob Time Seen by Provider: 07/27/25 19:56 Source: patient Mode of arrival: Wheelchair Limitations: no limitations History of Present Illness HPI narrative: patient reportedly ill the past month with cough. Family feels her cough has increased in the past week. She also complains of feeling short of breath during the past week and episodes of chest pain. . Cough is productive . Was seen by her PCP last week and prescribed keflex. States did not help. complains of sore throat also. No abdominal pain or fever . No nausea. Has suprapubic catheter that has been present since complication related to spine surgery. Related Data Home Medications ?Medication ?Instructions ?Recorded ?Confirmed buprenorphine 8 mg-naloxone 2 mg 1 film sublingual Q8H 03/01/23 07/27/25 sublingual film gabapentin 800 mg tablet 800 mg PO TID 03/30/23 07/27/25 tizanidine 4 mg tablet 4 mg PO Q8H PRN muscle spasticity 03/30/23 07/27/25 diazepam 5 mg tablet 5 mg PO DAILY 04/30/25 07/27/25 duloxetine 30 mg capsule,delayed 30 mg PO BID 04/30/25 07/27/25 release cephalexin 500 mg capsule mg 07/27/25 furosemide 20 mg tablet mg 07/27/25 Allergies Allergy/AdvReac Type Severity Reaction Status Date / Time codeine Allergy Severe rash Verified 07/27/25 20:00 Penicillins Allergy Severe Anaphylaxis Verified 07/27/25 20:00 quetiapine (From Seroquel) Allergy Severe Seizure Verified 07/27/25 20:00 sulfamethoxazole (From Allergy Mild Nausea Verified 07/27/25 20:00 Bactrim) trimethoprim (From Bactrim) Allergy Mild Nausea Verified 07/27/25 20:00 Opioid HPI Opioid Management Most Recent Opioid Data: Last Pain Scale 8 07/27/25, 19:55 Last ORT Total Score 10 09/01/24, 08:58 Last ORT Risk Category High Risk 09/01/24, 08:58 Urine Drug Screen Interp, (.) Final 05/14/24, 09:30 Ur Phencyclidine Scrn, (NEGATIVE) Negative 10/05/24, 10:20 Review of Systems ROS Status of ROS 10 or more systems reviewed and unremarkable except as noted in history and below [facility] Medical History 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 (ICD-10) Ulcer of left heel and midfoot, limited to breakdown of skin (~08/27/24) ?L97.421 - Non-pressure chronic ulcer of left heel and midfoot limited to breakdown of skin (ICD-10) Opioid use disorder in remission ?F11.91 - Opioid use, unspecified, in remission (ICD-10) Indwelling Alvares catheter present ?Z97.8 - Presence of other specified devices (ICD-10) Accidental fall ?W19.XXXA - Unspecified fall, initial encounter (ICD-10) Pressure ulcer ?L89.90 - Pressure ulcer of unspecified site, unspecified stage (ICD-10) Cellulitis ?L03.90 - Cellulitis, unspecified (ICD-10) Urinary tract infection ?N39.0 - Urinary tract infection, site not specified (ICD-10) Urinary catheter (Alvares) change required ?Z46.6 - Encounter for fitting and adjustment of urinary device (ICD-10) Constipation ?K59.00 - Constipation, unspecified (ICD-10) Alvares catheter problem ?T83.9XXA - Unspecified complication of genitourinary prosthetic device, implant and graft, initial encounter (ICD-10) Drug-seeking behavior ?Z76.5 - Malingerer [conscious simulation] (ICD-10) UTI (urinary tract infection) ?N39.0 - Urinary tract infection, site not specified (ICD-10) Gastritis ?K29.70 - Gastritis, unspecified, without bleeding (ICD-10) Nausea & vomiting ?R11.2 - Nausea with vomiting, unspecified (ICD-10) Pressure sore ?L89.90 - Pressure ulcer of unspecified site, unspecified stage (ICD-10) Retention of urine, unspecified ?R33.9 - Retention of urine, unspecified (ICD-10) Decubital ulcer ?L89.90 - Pressure ulcer of unspecified site, unspecified stage (ICD-10) Swollen leg ?M79.89 - Other specified soft tissue disorders (ICD-10) Bronchitis ?J40 - Bronchitis, not specified as acute or chronic (ICD-10) Alvares catheter problem ?T83.9XXA - Unspecified complication of genitourinary prosthetic device, implant and graft, initial encounter (ICD-10) Vomiting ?R11.10 - Vomiting, unspecified (ICD-10) UTI (urinary tract infection) ?N39.0 - Urinary tract infection, site not specified (ICD-10) Gastritis ?K29.70 - Gastritis, unspecified, without bleeding (ICD-10) Candidal intertrigo ?B37.2 - Candidiasis of skin and nail (ICD-10) Leukocytosis ?D72.829 - Elevated white blood cell count, unspecified (ICD-10) Chronic back pain ?M54.9 - Dorsalgia, unspecified (ICD-10) ?G89.29 - Other chronic pain (ICD-10) Fecal incontinence ?R15.9 - Full incontinence of feces (ICD-10) Urinary incontinence ?R32 - Unspecified urinary incontinence (ICD-10) Wheelchair dependence ?Z99.3 - Dependence on wheelchair (ICD-10) Cord compression myelopathy ?G95.20 - Unspecified cord compression (ICD-10) Surgical History History of back surgery ?Z98.890 - Other specified postprocedural states (ICD-10) Chronic suprapubic catheter ?Z93.59 - Other cystostomy status (ICD-10) Social History Within the past year, how often did you have a drink containing alcohol: never Score interpretation: A score less than 3 is consistent with normal alcohol consumption. Smoking status: Current every day smoker Non-prescribed substance use: former substance user Highest level of school completed/degree received: GED or equivalent Little interest or pleasure in doing things: not at all Feeling down, depressed, or hopeless: not at all Exam Constitutional Vital Signs, click to edit/add: Last Vital Signs Temp 98.1 F 07/27/25 19:55 Pulse 107 H 07/28/25 00:01 Resp 13 07/28/25 00:01 BP 135/87 07/28/25 00:01 Pulse Ox 94 L 07/28/25 00:01 O2 Del Method Nasal Cannula 07/27/25 21:21 O2 Flow Rate 2 07/27/25 21:21 Common normals: oriented x3, alert and well nourished Other: looks chronically ill HENLA Common normals: normocephalic and head/scalp atraumatic Other: mouth is dry. pharynx red and dry. No exudate or swelling. No stridor Eye Common normals: EOMs intact bilaterally and conjunctivae normal Respiratory Common normals: normal respiratory effort, no retractions, no use of accessory muscles and clear to auscultation bilaterally Cardio Common normals: S1 normal heart sound and S2 normal heart sound Rate: tachycardic GI Common normals: Normal to inspection, nondistended, normoactive bowel sounds present, soft to palpation and non-tender Extremity Common normals: normal to inspection Neuro Common normals: oriented x3 and CN's II-XII intact bilaterally Psych Appearance: grossly normal Course Vital Signs Vital signs: Vital Signs Temperature 98.1 F 07/27/25 19:55 Pulse Rate 104 H 07/27/25 19:55 Respiratory Rate 22 H 07/27/25 19:55 Blood Pressure 143/93 H 07/27/25 19:55 Pulse Oximetry 93 L 07/27/25 19:55 Oxygen Delivery Method Room Air 07/27/25 19:55 Temperature 98.1 F 07/27/25 19:55 Pulse Rate 107 H 07/28/25 00:01 Respiratory Rate 13 07/28/25 00:01 Blood Pressure 135/87 07/28/25 00:01 Pulse Oximetry 94 L 07/28/25 00:01 Oxygen Delivery Method Nasal Cannula 07/27/25 21:21 Oxygen Delivery Flow Rate 2 07/27/25 21:21 Medical Decision Making [facility] Narrative Medical decision making narrative: patient is a poor historian. complaint of shortness of breath, productive cough and episodes of chest pain. cxray per my review is neg. she is afebrile and her chest is clear. EKG with low voltage . NSR with Q waves anterior precordial leads. Her troponin returned elevated. She also complained of a tightness in her neck like it was closing off CT soft tissue neck unremarkable. she is advised of finding of elevated troponin which means injury to her heart and the need to be transferred tonight for workup and consultation with cardiology. Despite risk of she is against transfer and wants to go home and follow up with Cardiology as a out patient. She signed out AMA. Given name of immigration services officer rotary soil stabilizer and advised if she changes her mind she should go to [facility] or [facility] where cardiology is available Lab Data Labs: Lab Results 07/27/25 07/27/25 Range/Units 20:15 21:15 WBC 13.3 H (4.0-11.0) 10^3/uL RBC 5.06 (4.20-5.40) 10^6/uL Hgb 13.1 (12.0-16.0) g/dL Hct 41.6 (36.0-48.0) % MCV 82.2 (81.0-99.0) fL MCH 25.9 L (26.7-34.0) pg MCHC 31.5 (29.9-35.2) g/dL RDW 15.4 H (11.0-15.0) % Plt Count 311 (150-450) 10^3/uL MPV 9.0 L (9.5-13.5) fL Neut % (Auto) 78.8 H (43.0-75.0) % Lymph % (Auto) 15.9 L (20.5-60.0) % Dougherty % (Auto) 3.4 (1.7-12.0) % Eos % (Auto) 1.1 (0.9-7.0) % Baso % (Auto) 0.4 (0.2-2.0) % Neut # (Auto) 10.5 H (1.4-6.5) 10^3/uL Lymph # (Auto) 2.1 (1.2-3.8) 10^3/uL Dougherty # (Auto) 0.5 (0.3-0.8) 10^3/uL Eos # (Auto) 0.2 (0.0-0.7) 10^3/uL Baso # (Auto) 0.1 (0.0-0.1) 10^3/uL Abs Immat Gran (auto) 0.05 H (0.00-0.03) 10^3/uL Imm/Tot Granulo (auto) 0.4 (0.0-0.5) % Sodium 138 (136-145) mmol/L Potassium 4.7 (3.5-5.1) mmol/L Chloride 100 (98-107) mmol/L Carbon Dioxide 31.6 (21.0-32.0) mmol/L Anion Gap 11.1 BUN 6.0 L (7.0-18.0) mg/dL Creatinine 0.57 (0.55-1.02) mg/dL Est GFR ( Amer) >60 (>=60 mL/min/1.73m^2) Est GFR (Non-Af Amer) >60 (>=60 mL/min/1.73m^2) BUN/Creatinine Ratio 10.5 Glucose 107 H (74-106) mg/dL Calcium 9.0 (8.5-10.1) mg/dL Total Bilirubin 0.5 (0.2-1.0) mg/dL AST 25 (15-37) U/L ALT 10 L (14-59) U/L Alkaline Phosphatase 128 H (46-116) U/L Troponin I High Sens 342.9 H* (4.0-51.3) pg/mL NT-Pro-B Natriuret Pep 1100.0 H (<=900.0) pg/mL Total Protein 7.8 (6.4-8.2) g/dL Albumin 2.6 L (3.4-5.0) g/dL Globulin 5.2 g/dL Albumin/Globulin Ratio 0.5 Streptococcus Screen Negative Discharge Plan Discharge Stand Alone Forms: Portal Instructions Chief Complaint: Shortness of Breath/Dyspnea Clinical Impression: Shortness of breath, Elevated troponin Patient Disposition: Left Against Medical Advice Prescriptions / Home Meds: No Action gabapentin 800 mg tablet 800 mg PO TID tizanidine 4 mg tablet 4 mg PO Q8H PRN (Reason: muscle spasticity) cephalexin 500 mg capsule furosemide 20 mg tablet buprenorphine-naloxone 8-2 mg film 1 film sublingual Q8H diazepam 5 mg tablet 5 mg PO DAILY duloxetine 30 mg capsule,delayed release(DR/EC) 30 mg PO BID Print Language: Palestinian Instructions: Shortness of Breath (ED) Additional Instructions: follow up with Dr Randall. You can go to [facility] or [facility] if you change your mind about admission Referrals: MAL PEREZ [Primary Care Provider, DISPATCHER [employer]] - 1 week
--- OUTSIDE RECORDS SUMMARY | 2025-07-27 21:05 | XMS_ITS | Patient Health Record ---
Author Organization [facility] es Address [address] [place] [address] Care Team Providers Care Newspaper Manager Name Role Phone Le Davis Primary Care Provider [phone] Allergies Allergen (clinical drug ingredient) Drug/Non Drug Allergy documented on EMR Reaction Allergy Type Onset Date Status codeine CODEINE (uncoded) Unknown Allergy ActivegabapentinNEURONTIN (uncoded)UnknownAllergyActivePCN (uncoded)Unknown AllergyActivepromethazinePHENERGAN (uncoded)UnknownAllergyActive Reason For Referral No Information Medications Medication SIG (Take, Route, Frequency, Duration) Notes Start Date End Date Status Zofran 8 MG 1 TABLET Q8H PRN FOR NAUSEA AND VOMITING ActiveZonisamide 100 MG2 CAPSULES AT HSActiveReglan 10 MG1 TABLET Q8H PRN FOR NAUSEAActiveVenlafaxine HCl 75 MG1 CAPSULE ONCE AT HSActiveoxyCODONE- Acetaminophen 5-325 MG1-2 TABLETS Q4-6H PRN FOR PAINActivePrevacid 30 MG1 CAPSULE BIDActiveFlexeril 10 mg 30 10 MG1 TABLET TID PRN FOR MUSCLE SPASMSActive Bentyl 10 MG1 CAPSULE Q6H PRN FOR CRAMPINGActiveErgocalciferol 52276 UActive Social History Section Notes: SMOKES 1.5 PPD, FOR 13 YEARS. DENIES ETOH OR ILLEGAL DRUG USE. Plan Of Treatment No Information Medical (General) History Medical History History ICD Code SEIZURES MAJOR DEPRESSIONSurgical History Surgery Date(Month/Year) CHOLECYSTECTOMY HERNIA REPAIRAPPENDECTOMYHYSTERECTOMYHospitalization History Reason Date(Month/Year) SEIZURE, STOMACH PAINS 2010
--- OUTSIDE RECORDS SUMMARY | 2025-07-27 21:05 | XMS_ITS | Clinical Summary ---
Author Organization [facility] Address [address] [place] [address] Care Team Providers Care Fraternity Adviser Name Role Phone Gianna Orosco LEAK INSPECTOR Unavailable [phone] Unallocated, [facility] Provider Primary Care Provi marilu Allergies Active AllergyReactionsCriticalityNoted JwfsKsdzzwfgCysavvrZiovv35/04/2023 PenicillinsHives,GI klxnpquassh30/04/2023 Abd pain PromethazineSwelling,UymkmsdWjni59/19/2011 Other reaction(s): Facial Swelling WxwjxellnpJcdthxe71/04/2023 Medications MedicationSigDispense QuantityRefillsLast FilledStart DateEnd DateStatus [facility] [id number] UNIT/GM powder Apply 1 application topically in the morning and 1 application in the evening and 1 application before bedtime. To affected area.03/07/2023ctive psyllium (Metamucil) 28 % packet Take 1 packet by mouth in the morning. Mix and drink with at least 8 ounces of water or juice..Active diclofenac sodium (Voltaren Arthritis Pain) 1 % gel Apply 2 g topically in the morning and 2 g in the evening and 2 g before bedtime. externally.Active Buprenorphine HCl-Naloxone HCl (Suboxone) 8-[address] 2 Film under the tongue DailyActive promethazine (Phenergan) 12.5 MG tablet Indications:Nausea in adulttake 1 tablet by mouth every 8 hours if needed for nausea and vomiting 30 tablet ctive gabapentin (Neurontin) 800 MG tablet Indications:Chronic bilateral low back pain without sciaticaTake 1 tablet (800 mg) by mouth in the morning and 1 tablet (800 mg) in the evening and 1 tablet (800 mg) before bedtime. 270 tablet 02/13/2024ctive FLUoxetine (PROzac) 20 MG capsule Indications:Moderate episode of recurrent major depressive disorder (HCC)Take 1 capsule (20 mg) by mouth Daily 90 capsule 02/13/2024ctive tiZANidine (Zanaflex) 4 MG tablet Indications:Chronic bilateral low back pain without sciaticaTake 1 tablet (4 mg) by mouth every 8 (eight) hours if needed for muscle spasms 270 tablet 02/13/2024ctive zolpidem CR (Ambien CR) 12.5 MG ER tablet Indications:Psychophysiological insomniaTake 1 tablet (12.5 mg) by mouth at bedtime 30 tablet ctive furosemide (Lasix) 40 MG tablet Indications:Lower extremity edemaTake 1 tablet (40 mg) by mouth Daily 90 tablet 02/13/2024ctive diazePAM (Valium) 5 MG tablet Indications:Chronic low back pain, unspecified back pain laterality, unspecified whether sciatica presentTake 1 tablet (5 mg) by mouth every 8 (eight) hours if needed for anxiety or muscle spasms 90 tablet ctive Active Problems ProblemNoted DateDiagnosed DateEncounter for medication qqnbdofkot32/10/2024 Recurrent UTI02/13/2024 Assessment & Plan (02/13/2024 12:01 PM EDT): Recurrent UTI, sec to chronic indwelling catheter. Pt follows Urology. 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 Follows Urology. Lower extremity edema02/13/2024 Assessment & Plan (02/13/2024 12:02 PM EDT): B/l LE edema, +3 on exam today. On lasix, worsening. No known hx of CHF. She was directed to go to ED for further work up as its felt that she will needIV diuresis.. Psychophysiological pnxrjupf21/10/2024 Assessment & Plan (02/13/2024 12:00 PM EDT): On Ambien, sleeps well on it. URTI (acute upper respiratory infection)02/13/2024 Assessment & Plan (02/13/2024 12:03 PM EDT): Reports sore throat, cough, ear pain. She also reports feeling cold/chills. She also has mild SOB. Exam c/w possible strep throat, will call in oral cefdinir for her. BMI 32.0-32.9,adult11/01/20230341Yfsqeruuyhnba46/27/2024urrent gyomrc1111/01/2023 Overview (11/01/2023): Added secondary to documentation in Social History. Genital okvozy9311/01/2023History of UTI11/01/2023Incontinence without sensory udekyubmw45/27/2024Intrinsic sphincter deficiency (ISD)11/01/2023 Assessment & Plan (05/15/2024 8:15 PM EDT): She has extensive hx of multiple surgeries in lumbar region and ever since last surgery, she is wheelchair bound, has fecal and urinary incontinence. Aden catheter in place. Qbxardzxjyajrw87/27/2024hronic bilateral low back pain with bilateral sciatica 11/01/2023 Assessment & Plan (11/01/2023 11:35 AM EST): Acute worsening of chronic LBP, persistent with bilateral radiculopathy. She has bilateral weaknessand numbness in LE but she feels ever [...] patient. Moderate episode of recurrent major depressive fatpppzb26/27/2024 Assessment & Plan (02/13/2024 12:03 PM EDT): [...] previously. Will call it in. Dependence on xbpjpclcyg27/27/2024 Assessment & Plan (05/15/2024 8:14 PM EDT): Ambulatory dysfunction - wheelchair bound. Can stand on her feet briefly. Unable to ambulate ever since her back surgery that was complicated by cord compression. Patient has bilateral LE weakness, numbness, chronic LBP and unsteadiness. She needs wheelchair to perform her ADLs, attend physician appointments and anticipated to need it penitentiary and lifelong Assessment & Plan (11/01/2023 11:59 [...] physician appointments and anticipated to need it penitentiary and lifelong Ambulatory /27/2024 Assessment & Plan (11/01/2023 11:58 AM EST): [...] physician appointments and anticipated to need it penitentiary and lifelong Compression fracture of L1 lumbar fuznygud87/09/2023ait shnhtethmko56/09/2023 Urinary zjkqntkakfbd89/09/2023cquired spinal hxdcvabpj20/09/2023Scoliosis of lumbar spine06/13/2023Thoracic ebqkvrac03/09/2023Thoracic cvsijeaxgh77/09/2023 Thoracolumbar ojlctzdg69/09/2023Spinal stenosis of thoracolumbar region 06/13/2023ack pain, vzuzccd1806/20/2019 Assessment & Plan (02/13/2024 12:08 PM EDT): Chronic LBP, Worsened from baseline. Prior hx of thoraco-lumbar fusion. Has worsening LE weakness/numbness. She was ordered to have MRI cervical/thoracic/lumbar spine - awaiting PA. On gabapentin/valium for pain. Cervical paraspinal muscle spasm06/20/2019Nicotine abuse06/20/2019Cervical spondylosis with umuhfrvjhnoba92/05/2017Disease of spinal cord12/08/2016Spinal cord nzjcnocenyi25/05/2017Diffuse cervicobrachial lbnhbnxo73/13/2011Pressure ulcer, buttock Overview (05/15/2024): Patient is wheelchair bound with limited mobility due to chronic LBP, b/l LE weakness. Has associated fecal and urinary incontinence. Assessment & Plan (05/15/2024 8:22 PM EDT): Patient is wheelchair bound with limited mobility due to chronic LBP, b/l LE weakness. Has associated fecal and urinary incontinence. Immunizations ImmunizationAdministration DatesNext DueHep A, Adult12/05/2018Tdap02/22/2020 Family History Medical HistoryRelationNameCommentsDiabetesMaternal GrandfatherHeart disease Maternal GrandmotherHypertensionMaternal GrandmotherCoronary artery disease MotherHeart diseaseMotherHypertensionMotherHeart diseasePaternal Grandfather HypertensionPaternal GrandfatherRelationNameStatusCommentsMaternal Grandfather Maternal GrandmotherMotherPaternal Grandfather Social History Tobacco UseTypesPacks/DayYears UsedDateSmoking Tobacco: Every DayCigarettes Passive Smoke Exposure: Current Tobacco Cessation:Ready to Q uit: No; Counseling Given: Yes Alcohol UseStandard Drinks/WeekCommentsNever0 (1 standard drink = 0.6 oz pure alcohol)PHQ-2AnswerDate RecordedPatient Health Questionnaire-2 Vmita223 CommentsUnknownSex and Gender InformationValueDate RecordedSex Assigned at BirthNot on fileLegal GpzCmuyrq75/15/2023 6:45 PM EDTGender IdentityNot on fileSexual OrientationNot on file Last Filed Vital Signs Vital SignReadingTime TakenCommentsBlood Mobmfyqx979/5409 9:48 AM EDT Fdsbj9239/09/2024 9:48 AM KSHQtdqoxgwqkp92.9 ??C (96.7 ??F)05/14/2024 9:48 AM EDTRespiratory Oblh321805/23/2023 6:54 PM EDTOxygen Saturation--Inhaled Oxygen Concentration--Wvbshw21.2 kg (190 lb)05/14/2024 9:48 AM GJZAluzhg225.5 cm (5' 2 )05/14/2024 9:48 AM EDTBody Mass Index34.75005/14/2024 9:48 AM EDT Plan of Treatment Health MaintenanceDue DateLast DoneCommentsCT Bfkmmccfcdlb1973Colonoscopy 1973Colorectal Cancer Dugvkwezk1973FIT-DNA1973FIT1973 FOBT1973 3949Wulqmgcjayzqw1973Pneumococcal Vaccine: Pediatrics (0 to 5 Years) and At-Risk Patients (6 to 64 Years) (1 of 2 - PCV)1992Pap Smear 1994Cervical Cancer Jriitbkbd03/19/2003HPV/Xnpprv4705/24/2003Mammogram 2013COVID-19 Vaccine (2023- season)2025Influenza Vaccine (#1) Insurance Care Teams Team MemberRelationshipSpecialtyStart DateEnd Date Unallocated, [facility] Provider, [address] [place] [address] PCP - GeneralFamily Medicine06/04/24 Gianna Orosco NP Nurse PractitionerFamily Medicine04/12/24
--- OUTSIDE RECORDS SUMMARY | 2025-07-27 21:06 | XMS_ITS | Clinical Summary ---
Author Organization [facility] Address [address] [place] [address] Phone Care Team Providers Care Alarm Technician Name Role Phone Unavailable Primary Care Provider Unavailabl e Allergies Active AllergyReactionsCriticalityNoted DateCommentsCodeineSwelling,Hives,Other, QjkeldsAwcf45/19/2011PenicillinsSwelling,Hives,QvnwnjwHrpe43/19/2011Promethazine FcrimjgrBxrg75/19/2011 Other reaction(s): Facial Swelling NooqikykxdGlecvhs71/15/2023 Medications MedicationSigDispense QuantityRefillsLast FilledStart DateEnd DateStatus buprenorphine-naloxone (Suboxone) 8-[address] 1 tablet under the tongue 2 times a day.Active buPROPion XL (Wellbutrin XL) 150 mg 24 hr tablet Take 1 tablet (150 mg) by mouth once daily in the morning. Take before meals. 09/13/2022ctive cyclobenzaprine (Flexeril) 10 mg tablet Take 1 tablet (10 mg) by mouth 3 times a day.04/17/2015ctive cyclobenzaprine (Flexeril) 5 mg tablet Take by mouth.10/28/2020ctive diazePAM (Valium) 2 mg tablet Take 1 tablet (2 mg) by mouth every 8 hours if needed for anxiety or muscle spasms.04/17/2015ctive diazePAM (Valium) 5 mg tablet Take 1 tablet (5 mg) by mouth 3 times a day as needed for muscle spasms.Active diazePAM (Valium) 10 mg tablet Take by mouth.10/28/2020ctive diclofenac sodium 3 % gel Apply 1 application. topically 3 times a day.04/17/2015ctive DULoxetine (Cymbalta) [address] capsule Take 1 capsule (30 mg) by mouth once daily.Active DULoxetine (Cymbalta) [address] capsule Take 1 capsule (60 mg) by mouth once daily.06/06/2023ctive FLUoxetine (PROzac) 20 mg capsule Take 1 capsule (20 mg) by mouth once daily.11/07/2022ctive FLUoxetine (PROzac) 40 mg capsule OrallyActive furosemide (Lasix) 40 mg tablet Take 1 tablet (40 mg) by mouth once daily.05/27/2019Active gabapentin (Neurontin) 800 mg tablet Take 1 tablet (800 mg) by mouth 3 times a day.Active gabapentin (Neurontin) 600 mg tablet Take 1 tablet (600 mg) by mouth 3 times a day.05/30/2019Active gabapentin (Neurontin) 300 mg capsule Take 1 capsule (300 mg) by mouth 3 times a day.04/17/2015ctive hydroCHLOROthiazide (Microzide) 12.5 mg capsule Take 1 capsule (12.5 mg) by mouth once daily.04/17/2015ctive lidocaine (Xylocaine) 5 % cream cream Lipocaine 5 5 % External Cream Refills: 0 Start : 28-Oct-2020 Active 30 GM Tube10/28/2020ctive lisinopril 10 mg tablet Take 1 tablet (10 mg) by mouth once daily.04/17/2015ctive lisinopril 20 mg tablet Take by mouth.10/28/2020ctive omeprazole (PriLOSEC) [address] capsule Take 1 capsule (20 mg) by mouth once daily.05/18/2011ctive ondansetron ODT (Zofran-ODT) 4 mg disintegrating tablet dissolve 1 tablet ON TONGUE once daily if needed for qngrvr2609/12/2022ctive oxybutynin XL (Ditropan-XL) 10 mg 24 hr tablet Take 1 tablet (10 mg) by mouth once daily.12/31/2022ctive oxybutynin XL (Ditropan-XL) 15 mg 24 hr tablet Take 1 tablet (15 mg) by mouth once daily.Active polyethylene glycol-electrolytes (polyethylene glycol) 420 gram solution Take by mouth. TAKE DIRECTED.09/29/2021ctive tiZANidine (Zanaflex) 4 mg tablet Take 1 tablet (4 mg) by mouth 3 times a day as needed.Active zolpidem CR (Ambien CR) 12.5 mg ER tablet Take 1 tablet (12.5 mg) by mouth once daily at bedtime.Active Active Problems ProblemNoted DateDiagnosed DateCompression fracture of L1 lumbar vertebra 06/13/2023islocation of lumbar facet joint06/13/2023ait xautfsdmgbq57/09/2023 Spinal bgbuibodw57/09/2023Spinal stenosis of thoracolumbar qhdemc9006/13/2023 Acquired spinal aigpgxnyx52/09/2023yphosis, pudmggnf40/09/2023Sagittal plane /09/2023Scoliosis of lumbar spine06/13/2023Secondary kyphosis deformity of spine06/13/2023Thoracic /09/2023Thoracic myelopathy 06/13/2023Thoracolumbar yzhjyzmx62/09/2023Urinary youbqlkxevks68/09/2023ack pain, wpbicdx4406/20/2019Cervical lvgjqawfhfihp13/16/2019Cervical paraspinal muscle spasm06/20/2019Opiate nlsmdeixe39/16/2019Cervical spondylosis with gycmshlzjozzb58/05/2017Spinal cord lgioznbnlnr39/05/2017Burn of forearm, left 05/18/2011Cervical spondylosis without udusmshtvj56/13/2011Diffuse cervicobrachial /13/2011Psychological factors affecting medical snnmolklb97/13/2011 Immunizations ImmunizationAdministration DatesNext DueHepatitis A vaccine, age 19 years and greater (HAVRIX)12/05/2018Tdap vaccine, age 7 year and older (BOOSTRIX, ADACEL) 02/22/2020 Family History RelationNameStatusCommentsFatherMotherSibling Social History Tobacco UseTypesPacks/DayYears UsedDateSmoking Tobacco: Never Assessed CommentsUnknownSex and Gender InformationValueDate RecordedSex Assigned at Not on fileLegal IxwLzurml62/26/2022 6:37 PM ESTGender IdentityNot on fileSexual OrientationNot on file Last Filed Vital Signs Vital SignReadingTime TakenCommentsBlood Bcgurmqq732/6801 2:15 PM EST Gvdur7078/12/2021 2:15 PM ESTTemperature--Respiratory Aubp068709/08/2021 2:15 PM ESTOxygen Saturation--Inhaled Oxygen Concentration--Bkgbyp77 kg (183 lb) 09/08/2021 2:15 PM XMVGbihkc641.9 cm (4' 11 )09/08/2021 2:15 PM ESTBody Mass Index36.9609/08/2021 2:15 PM EST Plan of Treatment Health MaintenanceDue DateLast DoneCommentsCT Dujihsbxgmgw1973Colonoscopy 1973Colorectal Cancer Lijuvprbb1973FIT-DNA (Cologuard)1973FIT 1973HIV Bqssiqjqh1973Lipid Panel1973 1412Oqrqgktqdwnmr1973 Yearly Adult Oehfhimn1973MMR Vaccines (1 of 1 - Standard series)1974 Hepatitis C Ebzdvjwhf51/19/1991Hepatitis B Vaccines (1 of 3 - + 3-dose series) 1992Cervical Cancer Ulqzqfhyg74/19/1994HPV/Iwhowp8905/24/1994Pap Smear 05/24/19941212Vgepgpyjt09/19/2013Pneumococcal Vaccine (1 of 1 - PCV)2023Zoster Vaccines (1 of 2)2023Influenza Vaccine (#1)4COVID-19 Vaccine (1 - 2024- season)2025DTaP/Tdap/Td Vaccines (2 - Td or Tdap) Hepatitis A VaccinesAged Out12/05/2018No longer eligible based on patient's age to complete this topicHIB VaccinesAged OutNo longer eligible based on patient's age to complete this topicHPV VaccinesAged OutNo longer eligible based on patient's age to complete this topicIPV VaccinesAged OutNo longer eligible based on patient's age to complete this topicMeningococcal VaccineAged OutNo longer eligible based on patient's age to complete this topic Rotavirus VaccinesAged OutNo longer eligible based on patient's age to complete this topic Medical Devices ImplantedTypeAreaManufacturerDevice IdentifierShelf Expiration DateModel / Serial / LotBone Graft, Osteocel Plus, Cellular,Matrix, [facility] Case [id number] Implanted:Qty: 1 on 12/26/2020 by Kailash Serrano, Rally FitaftNUVAppetiseVE INC [id number] / [id number] / Description:Converted from Care Acute. Please see archived information for full log information.Bone Graft, Osteocel Plus, Cellular,Matrix, 10 Case [id number] Implanted:Qty: 1 on 12/26/2020 by Kailash Serrano, Rally FitaftNUVAppetiseVE etechies.in [id number] / [id number] / Description:Converted from Care Acute. Please see archived information for full log information.Bone Graft, Osteocel Plus, Cellular,Matrix, 10 Case [id number] Implanted:Qty: 1 on 12/26/2020 by Kailash Serrano, Rally FitaftNUVGreenleaf Book Group [id number] / [id number] / Description:Converted from Care Acute. Please see archived information for full log information.Bone Matrix, Osteocel Pro Cellular, Large Case [id number] Implanted:Qty: 1 on 09/18/2021 by Kailash Serrano, Rally FitaftNSpace Pencil [id number] / [id number] / Description:Converted from Care Acute. Please see archived information for full log information.Bone Graft, Osteocel Plus, Cellular,Matrix, [facility] Case [id number] Implanted:Qty: 1 on 09/18/2021 by Kailash Serrano, Rally FitaftNSpace Pencil [id number] / [id number] / Description:Converted from Care Acute. Please see archived information for full log information.Bone Matrix, Osteocel Pro Cellular, Medium Case [id number] Implanted:Qty: 1 on 09/21/2021 by Kailash Serrano, Rally FitaftNUVA-Power Energy Generation Systems INC [id number] / [id number] / Description:Converted from Care Acute. Please see archived information for full log information.Screw, Reline-O, 6.5x50mm 2s Polyaxial Case [id number] Implanted:Qty: 2 on 12/26/2020 by Kailash Serrano, ImplantNcode-laborationVE INC [id number] / / Description:Converted from Care Acute. Please see archived information for full log information.Screw, Reline-O, 4.5x45mm 2s Polyaxial Case [id number] Implanted:Qty: 2 on 12/26/2020 by Kailash Serrano MDImplantNUVASIVE INC [id number] / / Description:Converted from Care Acute. Please see archived information for full log information.5.5x500 Jrod Case [id number] Implanted:Qty: 2 on 12/26/2020 by Kailash Serrano, ReginaldlantNUVASIVE INC [id number] / / Description:Converted from Care Acute. Please see archived information for full log information. Additional Information:5.5x500 [facility] 12/29/2020 1357pmSclatonia Donisne-O, 5.5x40mm 2s Polyaxial Case [id number] Implanted:Qty: 4 on 12/26/2020 by Kailash Serrano, ImplantNUVASIVE INC [id number] / / Description:Converted from Care Acute. Please see archived information for full log information.Screw Reline-O, 6.5x45mm 2s Polyaxial Case [id number] Implanted:Qty: 4 on 12/26/2020 by Kailash Serrano, ImplantNUVASIVE INC [id number] / / Description:Converted from Care Acute. Please see archived information for full log information.Putty Attrax, 10cc Us Case [id number] Implanted:Qty: 2 on 12/26/2020 by Kailash Serrano, ImplantNUVAppetiseVE INC [id number] / / [id number]:Converted from Care Acute. Please see archived information for full log information.Screw, Reline-O, 5.0x45mm 2s Polyaxial Case [id number] Implanted:Qty: 1 on 12/26/2020 by Kailash Serrano MDImplantNUVAppetiseVE INC [id number] / / Description:Converted from Care Acute. Please see archived information for full log information.Screw, Reline-O, 5.5x35mm 2s Polyaxial Case [id number] Implanted:Qty: 6 on 12/26/2020 by Kailash Serrano MDImplanRicciLumier INC [id number] / / Description:Converted from Care Acute. Please see archived information for full log information.Screw, Reline-O, 5.5x45mm 2s Polyaxial Case [id number] Implanted:Qty: 1 on 12/26/2020 by Kailash Serrano, ImplantNcode-laborationVE INC [id number] / / Description:Converted from Care Acute. Please see archived information for full log information.Reline-O Conn, 5-6/5-6mm Rotating O-O Case [id number] Implanted:Qty: 1 on 12/26/2020 by Kailash Serrano, ImplantNcode-laborationVE INC [id number] / / Description:Converted from Care Acute. Please see archived information for full log information.Reline-O Conn, 5-6/5-6mm O-H Rotating Case [id number] Implanted:Qty: 1 on 12/26/2020 by Kailash Serrano MDNapatechlantNLumier INC [id number] / / Description:Converted from Care Acute. Please see archived information for full log information.Screw, Reline-O, 6.5x40mm 2s Polyaxial Case [id number] Implanted:Qty: 2 on 12/26/2020 by Kailash Serrano, NapatechlantNLumier INC [id number] / / Description:Converted from Care Acute. Please see archived information for full log information.Screw, Reline-O, 7.5x45mm 2s Polyaxial Case [id number] Implanted:Qty: 5 on 09/18/2021 by Kailash Serrano MDImplantNcode-laborationVE INC [id number] / / Description:Converted from Care Acute. Please see archived information for full log information.Screw, Reline-O, 8.5x90mm 2s Poly Iliac Case [id number] Implanted:Qty: 2 on 09/18/2021 by Kailash Serrano MDImplantNUVASIVE INC [id number] / / Description:Converted from Care Acute. Please see archived information for full log information.Screw, Reline-O, 7.5x40mm 2s Polyaxial Case [id number] Implanted:Qty: 2 on 09/18/2021 by Kailash Serrano MDNapatechlanTaxiPixi INC [id number] / / Description:Converted from Care Acute. Please see archived information for full log information.Bobby Reline-O 5.5mm Case [id number] Implanted:Qty: 1 on 09/18/2021 by Kailash Serrano, iSTAR [id number] / / Description:Converted from Care Acute. Please see archived information for full log information. Additional Information:per bill only, verified by opnote Reline-O Sabiha, 5-6/5-6mm Rotating O-O Case [id number] Implanted:Qty: 4 on 09/18/2021 by Kailash Serrano, iSTAR [id number] / / Description:Converted from Care Acute. Please see archived information for full log information.Bobby, Reline-0, 5.5 X 90mm, Lordotic Case [id number] Implanted:Qty: 1 on 09/18/2021 by Kailash Serrano, iSTAR [id number] / / Description:Converted from Care Acute. Please see archived information for full log information.Bobby, Reline-O Cocr, 5.7w860kp Straight Case [id number] Implanted:Qty: 1 on 09/18/2021 by Kailash Serrano, [employer]STAR [id number] / / Description:Converted from Care Acute. Please see archived information for full log information.Bobby, Reline-0, 5.5 X 40mm, Lordotic Case [id number] Implanted:Qty: 1 on 09/21/2021 by Kailash Serrano, [employer] [id number] / / Description:Converted from Care Acute. Please see archived information for full log information.Reline Lock Screw, Closed [place] Case [id number] Implanted:Qty: 2 on 09/21/2021 by Kailash Serrano MDImplantNUVASIVE INC [id number] / / Description:Converted from Care Acute. Please see archived information for full log information.Reline-O Conn, 5-6/5-6mm O-H Med Case [id number] Implanted:Qty: 2 on 09/21/2021 by Kailash Serrano MDImplantNUVASIVE INC [id number] / / Description:Converted from Care Acute. Please see archived information for full log information.Screw, Reline Lock, 5.5mm Open [place] Case [id number] Implanted:Qty: 26 on 12/26/2020 by Kailash Serrano MDNeuro Interventional ImplantNUVASIVE [id number] / / Description:Converted from Care Acute. Please see archived information for full log information.Screw, Reline Lock, 5.5mm Open [place] Case [id number] Implanted:Qty: 30 on 09/18/2021 by Kailash Serrano MDNeuro Interventional ImplantNUVASIVE [id number] / / Description:Converted from Care Acute. Please see archived information for full log information.Screw, Reline Lock, 5.5mm Open [place] Case [id number] Implanted:Qty: 2 on 09/21/2021 by Kailash Serrano MDNeuro Interventional ImplantNUVASIVE [id number] / / Description:Converted from Care Acute. Please see archived information for full log information. Insurance
--- OUTSIDE RECORDS SUMMARY | 2025-07-27 21:06 | XMS_ITS | Patient Health Record ---
Author Organization [facility] in [place] Address [address] [place] [address] Care Team Providers Care Silk Worker Name Role Phone Pako Johnson Do Primary Care Provider Cristopher Marcos Unavailable [phone] Weston Ma Jr Unavailable [phone] Allergies Allergen (clinical drug ingredient) Drug/Non Drug Allergy documented on EMR Reaction Allergy Type Onset Date Status codeine Codeine Sulfate Unknown Drug Allergy ActivepromethazinePhenerganUnknownDrug AllergyActivePenicillinUnknownDrug AllergyActive Results Component Value Reference Range Notes LIVER PROFILE Reviewed date:09/01/2024 08:32:46 PM Interpretation: Performing Lab: Notes/Report: [facility] , Bilirubin Total 0.3 0.2-1.0 mg/dL Bilirubin Direct0.10.0-0.2 mg/dLAspartate Amino Nvgecddknpx6423-98 U/LAlanine Jtbfbxztnlnxdkft7083-65 U/LAlkaline Moisxlrqdkd58972-573 U/LTotal Protein8.06.4- 8.2 g/dLAlbumin Level2.53.4-5.0 g/dLGlobulin5.5Albumin Globulin Ratio0.5 Performing Lab:see noteML - [facility] LBUA RANDOM W or MICROSCOPIC Reviewed date:09/01/2024 08:32:47 PM Interpretation: Performing Lab: Notes/Report: [facility] ,Color UrineLT. YELLOWYELLOWClarity UrineCLEARCLEARSpecific [place] Urine1.020 1.005-1.025pH Urine7.05.0-9.0Protein UrineNEGATIVENEG/TRACE mg/dLGlucose Urine UANEGATIVENEGATIVE mg/dLBilirubin UrineNEGATIVENEGATIVEKetones UrineNEGATIVE NEGATIVE mg/dLBlood UrineNEGATIVENEGATIVENitrite UrineNEGATIVENEGATIVE Urobilinogen Urine1.00.2-1.0 EU/dLLeukocyte Esterase UrineTRACENEGATIVEWBC Urine 2-5NONE SEEN #/HPFRBC Urine0-20-2 #/HPFBacteria UrineTRACENONE SEEN #/HPFMucus UrineNONE SEENNONE SEENSquamous Epithelial Cell UrineRARENONE/RARE #/LPFCrystals Seen?None SeenNone Seen #/HPFCast Seen?NONE SEENNONE SEEN #/LPFYeast UrineSEEN NONE SEENUrine Culture IndicatedYESPerforming Lab:see noteML - [facility] LBBox Test Reviewed date:09/11/2024 12:35:07 PM Interpretation: Performing Lab: Notes/Report: URINE CULTURE [facility] ,BOX Test Sent OutURINE CULTUREBOX Test Reference LabFIRELANDSBOX Test Date Sent 09/01/24BOX Test ResultSEE SCANNED REPORTPerforming Lab:see noteML - [facility] LBCBC AUTO DIFF Reviewed date:09/02/2024 03:04:39 PM Interpretation: Performing Lab: Notes/Report: [facility] ,White Blood Count7.84.0-11.0 10 3/uLRed Blood Count3.964.20-5.40 10 6/uL Uavapemett86.712.0-16.0 g/lCPuexhprtqe92.136.0-48.0 %Mean Corpuscular Keddla43.1 81.0-99.0 fLMean Corpuscular Idryofwwtn85.026.7-34.0 pgMean Corpuscular HGB Conc 31.429.9-35.2 g/dLRed Cell Distribution Width16.211.0-15.0 %Platelet Nigcx562 150-450 10 3/uLMean Platelet Volume9.59.5-13.5 fLNeutrophils Percent Auto54.8 43.0-75.0 %Lymphocytes Percent Auto36.520.5-60.0 %Monocytes Percent Auto5.01.7- 12.0 %Eosinophils Percent Auto2.20.9-7.0 %Basophils Percent Auto0.50.2-2.0 % Immature Granulocytes Pct Auto1.00.0-0.5 %Neutrophils Absolute Auto4.31.4-6.5 10 3/uLLymphocytes Absolute Auto2.91.2-3.8 10 3/uLMonocytes Absolute Auto0.40.3-0.8 10 3/uLEosinophils Absolute Auto0.20.0-0.7 10 3/uLBasophils Absolute Auto0.00.0- 0.1 10 3/uLImmature Granulocytes Abs Auto0.080.00-0.03 10 3/uLPerforming Lab:see noteML - [facility] LBCRP Reviewed date:09/02/2024 03:04:39 PM Interpretation: Performing Lab: Notes/Report: [facility] ,C Reactive Protein4.74<=0.50 mg/dLPerforming Lab:see note - [facility] LBPROF 14(COMP METB) Reviewed date:09/02/2024 03:04:39 PM Interpretation: Performing Lab: Notes/Report: [facility] ,Aulfnm650560-242 mmol/LPotassium3.83.5-5.1 mmol/JXccxqlhe82926-244 mmol/LCarbon Xjezxsm06.121.0-32.0 mmol/LAnion Gap3.7Kkaxayw39385-542 mg/dLBlood Urea Nitrogen 17.07.0-18.0 mg/dLCreatinine0.840.55-1.02 mg/dLEstimated GFR ( July>60 >=60 mL/min/1.73m 2Estimated GFR (Non- Batool>60>=60 mL/min/1.73m 2BUN Creatinine Ratio20.9Tflquxz1.08.5-10.1 mg/dLBilirubin Total0.20.2-1.0 mg/dL Aspartate Amino Pobupwbuqeg5912-25 U/LAlanine Aerjpnpygurvxxvc9758-31 U/L Alkaline Fhlmjumnonm24467-326 U/LTotal Protein5.86.4-8.2 g/dLAlbumin Level1.7 3.4-5.0 g/dLGlobulin4.1Albumin Globulin Ratio0.4Performing Lab:see noteML - [facility] LBGentamicin Random Reviewed date:09/02/2024 03:04:39 PM Interpretation: Performing Lab: Notes/Report: [facility] ,Gentamicin Random2.1Performing Lab:see noteML - [facility] LBCBC AUTO DIFF Reviewed date:09/02/2024 03:04:39 PM Interpretation: Performing Lab: Notes/Report: [facility] ,White Blood Count7.94.0-11.0 10 3/uLRed Blood Count3.964.20-5.40 10 6/uL Xdrqmvfiil67.712.0-16.0 g/xIKvlzjtwzfx39.136.0-48.0 %Mean Corpuscular Rwzxjb88.1 81.0-99.0 fLMean Corpuscular Qebpoygyer60.026.7-34.0 pgMean Corpuscular HGB Conc 31.429.9-35.2 g/dLRed Cell Distribution Width16.211.0-15.0 %Platelet Trlac443 150-450 10 3/uLMean Platelet Volume9.39.5-13.5 fLNeutrophils Percent Auto54.2 43.0-75.0 %Lymphocytes Percent Auto35.820.5-60.0 %Monocytes Percent Auto5.71.7- 12.0 %Eosinophils Percent Auto2.70.9-7.0 %Basophils Percent Auto0.60.2-2.0 % Immature Granulocytes Pct Auto1.00.0-0.5 %Neutrophils Absolute Auto4.31.4-6.5 10 3/uLLymphocytes Absolute Auto2.81.2-3.8 10 3/uLMonocytes Absolute Auto0.50.3-0.8 10 3/uLEosinophils Absolute Auto0.20.0-0.7 10 3/uLBasophils Absolute Auto0.10.0- 0.1 10 3/uLImmature Granulocytes Abs Auto0.080.00-0.03 10 3/uLPerforming Lab:see noteML - [facility] LBPROF 14(COMP METB) Reviewed date:09/02/2024 03:04:39 PM Interpretation: Performing Lab: Notes/Report: [facility] ,Vzfjgs649606-043 mmol/LPotassium4.03.5-5.1 mmol/WUbrwpizc18818-350 mmol/LCarbon Izwdlxs61.121.0-32.0 mmol/LAnion Gap6.6Nhpnwem00321-362 mg/dLBlood Urea Nitrogen 16.07.0-18.0 mg/dLCreatinine0.840.55-1.02 mg/dLEstimated GFR ( July>60 >=60 mL/min/1.73m 2Estimated GFR (Non- Batool>60>=60 mL/min/1.73m 2BUN Creatinine Ratio19.4Mbzkugj0.18.5-10.1 mg/dLBilirubin Total0.20.2-1.0 mg/dL Aspartate Amino Dxupaxbqjqr3791-36 U/LAlanine Gpsotlsvzbcyepgn0972-68 U/L Alkaline Sgfakveyygl09657-189 U/LTotal Protein5.96.4-8.2 g/dLAlbumin Level1.7 3.4-5.0 g/dLGlobulin4.2Albumin Globulin Ratio0.4Performing Lab:see noteML - [facility] LBCRP Reviewed date:09/02/2024 03:04:39 PM Interpretation: Performing Lab: Notes/Report: [facility] ,C Reactive Protein4.49<=0.50 mg/dLPerforming Lab:see noteML - [facility] LBCBC AUTO DIFF Reviewed date:09/03/2024 08:20:29 PM Interpretation: Performing Lab: Notes/Report: [facility] ,White Blood Count11.64.0-11.0 10 3/uLRed Blood Count4.374.20-5.40 10 6/uL Kjygmhzivq87.712.0-16.0 g/jPVfvesqlizt38.836.0-48.0 %Mean Corpuscular Uqhcts42.2 81.0-99.0 fLMean Corpuscular Byegycluqz05.826.7-34.0 pgMean Corpuscular HGB Conc 31.829.9-35.2 g/dLRed Cell Distribution Width15.411.0-15.0 %Platelet Xkmhf516 150-450 10 3/uLMean Platelet Volume9.39.5-13.5 fLPerforming Lab:see noteML - [facility] LBCRP Reviewed date:09/03/2024 08:20:29 PM Interpretation: Performing Lab: Notes/Report: [facility] ,C Reactive Protein2.26<=0.50 mg/dLPerforming Lab:see noteML - [facility] LBPROF 14(COMP METB) Reviewed date:09/03/2024 08:20:29 PM Interpretation: Performing Lab: Notes/Report: [facility] ,Urbjyh111156-063 mmol/LPotassium4.53.5-5.1 mmol/QTmxkvvjl56258-412 mmol/LCarbon Modccqd16.621.0-32.0 mmol/LAnion Gap10.3Yljcdmw69800-187 mg/dLBlood Urea Rvgybwlx14.07.0-18.0 mg/dLCreatinine0.730.55-1.02 mg/dLEstimated GFR ( July>60>=60 mL/min/1.73m 2Estimated GFR (Non- Batool>60>=60 mL/min/1.73m 2BUN Creatinine Ratio16.1Bdxnozl3.18.5-10.1 mg/dLBilirubin Total0.20.2-1.0 mg/dL Aspartate Amino Acydyqjxuws6069-22 U/LAlanine Qtpbzmagqnfwczyi4394-61 U/L Alkaline Dcgesvwbwee48457-461 U/LTotal Protein6.36.4-8.2 g/dLAlbumin Level1.9 3.4-5.0 g/dLGlobulin4.4Albumin Globulin Ratio0.4Performing Lab:see noteML - [facility] LBManual Differential Reviewed date:09/03/2024 08:20:29 PM Interpretation: Performing Lab: Notes/Report: [facility] ,Segmented Neutrophils % Wvheld53.043.0-75.0Lymphocytes Percent Manual5.020.5- 60.0 %Monocytes Percent Manual1.01.7-12.0 %Eosinophils Percent Manual0.00.9-7.0 %Basophils Percent Manual0.00.2-2.0 %Atypical Lymphocytes % Manual6.0Segmented Neut Absolute Johhos02.201.4-6.5 10 3/uLLymphocytes Absolute Manual0.581.20-3.80 10 3/uLMonocytes Absolute Manual0.110.30-0.80 10 3/uLEosinophils Absolute Manual 0.000.00-0.70 10 3/uLBasophils Abs Manual0.000.00-0.10 10 3/uLAtypical Lymphocytes Abs Man0.69Performing Lab:see noteML - [facility] Reason For Referral No Information Medications Medication SIG (Take, Route, Frequency, Duration) Notes Start Date End Date Status Gabapentin 300 MG take 1 capsule by mouth three times a day Oral; Duration: 30 ActivediazePAM 2 MG(Schedule IV Drug) Oral; Duration: 30ActiveCyclobenzaprine HCl 10 MGOral; Duration: 30ActiveZolpidem Tartrate ER 12.5 MG(Schedule IV Drug) Oral; Duration: 30ActiveSuboxone 8-2 MG(Schedule III Drug) DISSOLVE 2 (TWO) films UNDER THE TONGUE EVERY DAY Sublingual; Duration: 28ActivePROzac 40 MG OrallyActiveLisinopril-hydroCHLOROthiazide 20-25 MGOral; Duration: 30Active Social History Tobacco Use: Social History Observation Description Date Details (start date - stop date) Current Smoker NA - NA Tobacco Use/Smoking Question Answer Notes Patient is a current every day smoker Additional Findings: Tobacco UserHeavy cigarette smoker (20-39 cigs/day)Tobacco use other than smoking: Question Answer Notes Are you an other tobacco user? 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)ActiveconfirmedProblemC-reactive protein abnormal (468585122)CRP elevated (R79.82)ActiveconfirmedProblemLeukocytosis (576721137)Leukocytosis (D72.829)ActiveconfirmedProblemKyphoscoliosis deformity of spine (642755607) Kyphoscoliosis (M41.9)Activeconfirmed Plan Of Treatment No Information Insurance Providers Payer Name Payer Address Payer Phone Subscriber Number Group Number Insured Name Patient Relationship to Insured Coverage Start Date Coverage End Date [employer] PPO PLUS LOCAL PLAN [address] [place] [address] [id number] null, null Spouse - patient is the spouse of the insured 8 MEDICAID [place] PRIMARY ONLY[address] [facility] [address] [place], [place] [id number] [phone], MistySelf - patient is the insured Medical (General) History Medical History History ICD Code seizures/epilepsy headache/migrainedepressionhypertensionheartburn/gastritisulcers vomiting/diarrhealoss of control of bowel/bladder functionArthritisdrug abuse - opiatessuicide attemptsvisual problemsSurgical History Surgery Date(Month/Year) appendectomy cholecystectomyhysterectomycervical spine surgery. Dr. Santiagothoracic laminectomy 04/09/16
[2025-07-27] MEDS: 0.9 % SODIUM CHLORIDE 1,000 ML 999 ML IV (21:16)
[2025-07-27 21:41] LABS: Hematocrit 41.6 % (36.0-48.0); Hemoglobin 13.1 g/dL (12.0-16.0); Immature Granulocytes Abs Auto 0.05 10^3/uL (0.00-0.03); Immature Granulocytes Pct Auto 0.4 % (0.0-0.5); Lymphocytes Absolute Auto 2.1 10^3/uL (1.2-3.8); Mean Corpuscular HGB Conc 31.5 g/dL (29.9-35.2); Mean Corpuscular Hemoglobin 25.9 pg (26.7-34.0); Mean Corpuscular Volume 82.2 fL (81.0-99.0); Platelet Count 311 10^3/uL (150-450); Red Blood Count 5.06 10^6/uL (4.20-5.40); White Blood Count 13.3 10^3/uL (4.0-11.0)
[2025-07-27 21:47] LABS: Anion Gap 11.1
[2025-07-27 21:55] LABS: Alanine Aminotransferase 10 U/L (14-59); Albumin Globulin Ratio 0.5; Albumin Level 2.6 g/dL (3.4-5.0); Alkaline Phosphatase 128 U/L (46-116); Aspartate Amino Transferase 25 U/L (15-37); Blood Urea Nitrogen 6.0 mg/dL (7.0-18.0); Calcium 9.0 mg/dL (8.5-10.1); Carbon Dioxide 31.6 mmol/L (21.0-32.0); Chloride 100 mmol/L (98-107); Estimated GFR (African America >60 (>=60 mL/min/1.73m^2); Estimated GFR (Non-African Ame >60 (>=60 mL/min/1.73m^2); Globulin 5.2 g/dL; Glucose 107 mg/dL (74-106); NT Pro B Type Natriuretic Pept 1100.0 pg/mL (<=900.0); Potassium 4.7 mmol/L (3.5-5.1); Sodium 138 mmol/L (136-145); Total Protein 7.8 g/dL (6.4-8.2)
--- NOTE | 2025-07-27 23:43 | ECG_ITS ---
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 Measurements Intervals [place] Rate: 101 P: 74 OR: 140 QRS: -8 QRSD: 84 T: 17 QT: 328 QTc: 386 Interpretive Statements 1120 Sinus tachycardia 3114 Cannot rule out anterior myocardial infarction, age undetermined 8102 Low QRS voltage in chest leads 9150 abnormal ECG Compared to ECG 10/05/2024 09:12:38 Myocardial infarct finding now present Low QRS voltage now present Sinus rhythm no longer present Electronically Signed On 07-28-2025 20:26:11 EST by SILVERIO WAGGONER M.D.
[2025-07-28] VITALS: PULSE 107; O2SAT 94
[2025-07-28 00:01] VITALS: BP 135/87; PULSE 107; O2SAT 94
[2025-07-28] MEDS: ACETAMINOPHEN 500 MG TABLET 1000 MG PO (00:15)
== END 2025-07-28 01:44 | disposition left against medical advice (07) ==
PROVIDERS: Emergency Provider Internal Medicine; PCP Nurse Practitioner
DX: R06.02 Shortness of breath (principal); Z53.29 Procedure and treatment not carried out because of patient's decision for other reasons; R79.89 Other specified abnormal findings of blood chemistry; F17.200 Nicotine dependence, unspecified, uncomplicated
CPT/HCPCS: 36415; 70490; 71045; 80053; 81001; 83605; 83880; 84484; 85025; 85378; 87070; 87880; 93005; 99285

== ENCOUNTER 2025-08-20 10:09 | Emergency (ER) | payer BC, SELFPAY ==
[2025-08-20 10:22] VITALS: BP 111/85; PULSE 106; TEMP 36.5; O2SAT 94; BMI 32.9
[2025-08-20 10:32] VITALS: PULSE 97
--- NOTE | 2025-08-20 10:49 | ECG_ITS ---
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
--- NOTE | 2025-08-20 11:05 | XR_ITS ---
The [place] [id number] Patient Name: MORALES LEE MRN: [id number] date: 1975 Sex: F Assigned Patient Location: ER Current Patient Location: ER Accession/Order Number: [id number] Exam Date: 08/20/2025 11:26 Report Date: 08/20/2025 12:14 At the request of: KYRA SILVA MD Procedure: XR chest 1V PORTABLE AP ERECT CHEST 1126 hours CLINICAL HISTORY: Shortness of breath, nausea and weakness COMPARISON: 07/25/2025 There is continued elevation of the right hemidiaphragm. The heart is within normal limits. There is no vascular congestion. No developing consolidation is seen. There is no effusion or pneumothorax. There is previous lower cervical fusion. Thoracolumbar spinal rods are again noted XR/XR chest 1V IMPRESSION: NO ACUTE FINDINGS Impression dictated by: Sravani Maurer M.D. 08/20/2025 12:14 PM Dictation Location: [employer] Electronically authenticated by: [id number] Y Date: 08/20/2025 12:14
[2025-08-20 11:32] LABS: Hematocrit 47.4 % (36.0-48.0); Hemoglobin 14.9 g/dL (12.0-16.0); Immature Granulocytes Abs Auto 0.06 10^3/uL (0.00-0.03); Immature Granulocytes Pct Auto 0.4 % (0.0-0.5); Lymphocytes Absolute Auto 3.1 10^3/uL (1.2-3.8); Mean Corpuscular HGB Conc 31.4 g/dL (29.9-35.2); Mean Corpuscular Hemoglobin 25.6 pg (26.7-34.0); Mean Corpuscular Volume 81.6 fL (81.0-99.0); Platelet Count 283 10^3/uL (150-450); Red Blood Count 5.81 10^6/uL (4.20-5.40); White Blood Count 15.2 10^3/uL (4.0-11.0)
[2025-08-20 11:48] LABS: Alanine Aminotransferase 20 U/L (14-59); Albumin Globulin Ratio 0.4; Albumin Level 2.5 g/dL (3.4-5.0); Alkaline Phosphatase 153 U/L (46-116); Anion Gap 10.8; Aspartate Amino Transferase 26 U/L (15-37); Blood Urea Nitrogen 7.0 mg/dL (7.0-18.0); Calcium 9.8 mg/dL (8.5-10.1); Carbon Dioxide 36.2 mmol/L (21.0-32.0); Chloride 94 mmol/L (98-107); Estimated GFR (African America >60 (>=60 mL/min/1.73m^2); Estimated GFR (Non-African Ame >60 (>=60 mL/min/1.73m^2); Globulin 5.6 g/dL; Glucose 119 mg/dL (74-106); Potassium 4.0 mmol/L (3.5-5.1); Sodium 137 mmol/L (136-145); Total Protein 8.1 g/dL (6.4-8.2)
[2025-08-20 11:51] LABS: Glucose Urine UA NEGATIVE (NEGATIVE)
[2025-08-20 12:07] LABS: Urine Culture Indicated YES-FRMC
[2025-08-20 12:19] LABS: Crystals Seen? Seen #/HPF (None Seen)
[2025-08-20 12:20] LABS: Cast Seen? NONE SEEN #/LPF (NONE SEEN)
--- NOTE | 2025-08-20 12:39 | ED.FEMALEGU1 ---
HPI - Female Genitourinary General Chief complaint: Urogenital-Female Stated complaint: CATHETER ISSUE Time Seen by Provider: 08/20/25 10:43 Mode of arrival: Wheelchair Limitations: no limitations History of Present Illness HPI Narrative: Patient is 50 years old female with history of chronic indwelling urinary catheter is coming to the ER requesting the catheter to be replaced. She mentioned that in the last visit of her primary care team like the catheter was removed but the patient has been incontinent since then. He mentioned that she has been feeling weak for the last few days and she have noted appetite she also have this thrush in her mouth. No other concerns No chest pain no difficulty breathing no nausea no vomiting Patient just did not have a good appetite for the last few days Related Data Home Medications ?Medication ?Instructions ?Recorded ?Confirmed buprenorphine 8 mg-naloxone 2 mg 1 film sublingual Q8H 03/01/23 07/27/25 sublingual film gabapentin 800 mg tablet 800 mg PO TID 03/30/23 07/27/25 tizanidine 4 mg tablet 4 mg PO Q8H PRN muscle spasticity 03/30/23 07/27/25 diazepam 5 mg tablet 5 mg PO DAILY 04/30/25 07/27/25 duloxetine 30 mg capsule,delayed 30 mg PO BID 04/30/25 07/27/25 release cephalexin 500 mg capsule mg 07/27/25 furosemide 20 mg tablet mg 07/27/25 Previous Rx's ?Medication ?Instructions ?Recorded levofloxacin 750 mg tablet 750 mg PO DAILY 7 days #7 tabs 08/20/25 nystatin 100,000 unit/mL oral 500,000 unit (5 mL) PO QID 14 days 08/20/25 suspension #280 mL Allergies Allergy/AdvReac Type Severity Reaction Status Date / Time codeine Allergy Severe rash Verified 08/20/25 10:22 Penicillins Allergy Severe Anaphylaxis Verified 08/20/25 10:22 quetiapine (From Seroquel) Allergy Severe Seizure Verified 08/20/25 10:22 sulfamethoxazole (From Allergy Mild Nausea Verified 08/20/25 10:22 Bactrim) trimethoprim (From Bactrim) Allergy Mild Nausea Verified 08/20/25 10:22 Review of Systems ROS Status of ROS 10 or more systems reviewed and unremarkable except as noted in history and below [facility] Medical History 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 (ICD-10) Ulcer of left heel and midfoot, limited to breakdown of skin (~08/27/24) ?L97.421 - Non-pressure chronic ulcer of left heel and midfoot limited to breakdown of skin (ICD-10) Opioid use disorder in remission ?F11.91 - Opioid use, unspecified, in remission (ICD-10) Indwelling Alvares catheter present ?Z97.8 - Presence of other specified devices (ICD-10) Accidental fall ?W19.XXXA - Unspecified fall, initial encounter (ICD-10) Pressure ulcer ?L89.90 - Pressure ulcer of unspecified site, unspecified stage (ICD-10) Cellulitis ?L03.90 - Cellulitis, unspecified (ICD-10) Urinary tract infection ?N39.0 - Urinary tract infection, site not specified (ICD-10) Urinary catheter (Alvares) change required ?Z46.6 - Encounter for fitting and adjustment of urinary device (ICD-10) Constipation ?K59.00 - Constipation, unspecified (ICD-10) Alvares catheter problem ?T83.9XXA - Unspecified complication of genitourinary prosthetic device, implant and graft, initial encounter (ICD-10) Drug-seeking behavior ?Z76.5 - Malingerer [conscious simulation] (ICD-10) UTI (urinary tract infection) ?N39.0 - Urinary tract infection, site not specified (ICD-10) Gastritis ?K29.70 - Gastritis, unspecified, without bleeding (ICD-10) Nausea & vomiting ?R11.2 - Nausea with vomiting, unspecified (ICD-10) Pressure sore ?L89.90 - Pressure ulcer of unspecified site, unspecified stage (ICD-10) Retention of urine, unspecified ?R33.9 - Retention of urine, unspecified (ICD-10) Decubital ulcer ?L89.90 - Pressure ulcer of unspecified site, unspecified stage (ICD-10) Swollen leg ?M79.89 - Other specified soft tissue disorders (ICD-10) Bronchitis ?J40 - Bronchitis, not specified as acute or chronic (ICD-10) Alvares catheter problem ?T83.9XXA - Unspecified complication of genitourinary prosthetic device, implant and graft, initial encounter (ICD-10) Vomiting ?R11.10 - Vomiting, unspecified (ICD-10) UTI (urinary tract infection) ?N39.0 - Urinary tract infection, site not specified (ICD-10) Gastritis ?K29.70 - Gastritis, unspecified, without bleeding (ICD-10) Candidal intertrigo ?B37.2 - Candidiasis of skin and nail (ICD-10) Leukocytosis ?D72.829 - Elevated white blood cell count, unspecified (ICD-10) Chronic back pain ?M54.9 - Dorsalgia, unspecified (ICD-10) ?G89.29 - Other chronic pain (ICD-10) Fecal incontinence ?R15.9 - Full incontinence of feces (ICD-10) Urinary incontinence ?R32 - Unspecified urinary incontinence (ICD-10) Wheelchair dependence ?Z99.3 - Dependence on wheelchair (ICD-10) Cord compression myelopathy ?G95.20 - Unspecified cord compression (ICD-10) Surgical History History of back surgery ?Z98.890 - Other specified postprocedural states (ICD-10) Chronic suprapubic catheter ?Z93.59 - Other cystostomy status (ICD-10) Social History Within the past year, how often did you have a drink containing alcohol: never Score interpretation: A score less than 3 is consistent with normal alcohol consumption. Smoking status: Current every day smoker Non-prescribed substance use: former substance user Highest level of school completed/degree received: GED or equivalent Little interest or pleasure in doing things: not at all Feeling down, depressed, or hopeless: not at all Exam Narrative Exam Narrative: Nurses notes and vital signs reviewed and patient is not hypoxic. General: Well-appearing and in no apparent distress. Skin: Warm, dry, no pallor noted. No rash. Head: Normocephalic, atraumatic. Neck: Supple, non-tender. Eye: Pupils are equal, round and EOMI. No scleral icterus. Ears, Nose, Mouth, and Throat: Lesa thrush noted in the mouth Cardiovascular: Regular Rate and Rhythm without murmur, gallop or rub. Respiratory: No accessory muscle use or respiratory distress. Lungs are clear to auscultation, no wheezing, rales or rhonchi Back: No midline thoracic or lumbar vertebral tenderness. No CVA tenderness Musculoskeletal: normal ROM, no calf or popliteal tenderness, no lower extremity edema/swelling GI: Abdomen is soft, non-distended. Normal bowel sounds. No masses appreciated. No tenderness to palpation. No rebound, guarding, or rigidity noted. Neurological: A&O x4. No cranial nerve dysfunction observed. Constitutional Vital Signs, click to edit/add: Last Vital Signs Temp 97.7 F 08/20/25 10:22 Pulse 93 H 08/20/25 12:40 Resp 18 08/20/25 12:40 BP 111/85 08/20/25 10:22 Pulse Ox 94 L 08/20/25 10:22 O2 Del Method Room Air 08/20/25 11:20 Course Vital Signs Vital signs: Vital Signs Temperature 97.7 F 08/20/25 10:22 Pulse Rate 106 H 08/20/25 10:22 Respiratory Rate 18 08/20/25 10:22 Blood Pressure 111/85 08/20/25 10:22 Pulse Oximetry 94 L 08/20/25 10:22 Temperature 97.7 F 08/20/25 10:22 Pulse Rate 93 H 08/20/25 12:40 Respiratory Rate 18 08/20/25 12:40 Blood Pressure 111/85 08/20/25 10:22 Pulse Oximetry 94 L 08/20/25 10:22 Oxygen Delivery Method Room Air 08/20/25 11:20 MDM - Female Genitourinary MDM Narrative Medical decision making narrative: Patient EKG showing sinus rhythm with a heart rate of [address] elevation or depression Did have a history of chronic indwelling catheter and right now it is more appropriate to have the catheter replaced specially with her history of bilateral lower extremity weakness that is chronic, the patient main goal was the catheter from coming to the ER She also had a mild thrush that was treated with nystatin swish and swallow The patient CBC showed some leukocytosis with no systemic signs of infection initially it was noted that the heart rate was mildly tachycardic but after reevaluation the patient heart rate was 93 at bedside, analysis did show that the patient have UTI although she did not have any abdominal pain Her decreased appetite could be secondary to the UTI and she does not have any systemic symptoms of infection Patient was started on levofloxacin to cover for UTI with instruction to monitor her symptoms in case of any new symptoms the patient to come back to the ER. After being asked multiple times she does have a good support at home and she mentioned that she have home health care as well and her [id number] help her usually EKG in the ER was not showing acute pathology she did not have any chest pain at any time she wanted to be reevaluated for her heart and troponin today is normal, she only had 1 test done the last time and it was elevated but right now there is no active problem The patient chest x-ray showed no acute pathology And agreeable with the plan above she will just monitor her symptoms in case of no improvement in the next 24 to 48 hour especially for her appetite she is to come back to the ER The patient to follow-up with the primary care within 2 to 3 days and to come back to the ER in case of any worsening of the current symptoms or any new symptoms or concerns Lab Data Labs: Lab Results 08/20/25 08/20/25 Range/Units 11:21 11:40 WBC 15.2 H (4.0-11.0) 10^3/uL RBC 5.81 H (4.20-5.40) 10^6/uL Hgb 14.9 (12.0-16.0) g/dL Hct 47.4 (36.0-48.0) % MCV 81.6 (81.0-99.0) fL MCH 25.6 L (26.7-34.0) pg MCHC 31.4 (29.9-35.2) g/dL RDW 16.7 H (11.0-15.0) % Plt Count 283 (150-450) 10^3/uL MPV 10.2 (9.5-13.5) fL Neut % (Auto) 72.9 (43.0-75.0) % Lymph % (Auto) 20.2 L (20.5-60.0) % [place] % (Auto) 5.5 (1.7-12.0) % Eos % (Auto) 0.7 L (0.9-7.0) % Baso % (Auto) 0.3 (0.2-2.0) % Neut # (Auto) 11.1 H (1.4-6.5) 10^3/uL Lymph # (Auto) 3.1 (1.2-3.8) 10^3/uL [place] # (Auto) 0.8 (0.3-0.8) 10^3/uL Eos # (Auto) 0.1 (0.0-0.7) 10^3/uL Baso # (Auto) 0.0 (0.0-0.1) 10^3/uL Abs Immat Gran (auto) 0.06 H (0.00-0.03) 10^3/uL Imm/Tot Granulo (auto) 0.4 (0.0-0.5) % Sodium 137 (136-145) mmol/L Potassium 4.0 (3.5-5.1) mmol/L Chloride 94 L (98-107) mmol/L Carbon Dioxide 36.2 H (21.0-32.0) mmol/L Anion Gap 10.8 BUN 7.0 (7.0-18.0) mg/dL Creatinine 0.70 (0.55-1.02) mg/dL Est GFR ( Amer) >60 (>=60 mL/min/1.73m^2) Est GFR (Non-Af Amer) >60 (>=60 mL/min/1.73m^2) BUN/Creatinine Ratio 10.0 Glucose 119 H (74-106) mg/dL Calcium 9.8 (8.5-10.1) mg/dL Total Bilirubin 0.9 (0.2-1.0) mg/dL AST 26 (15-37) U/L ALT 20 (14-59) U/L Alkaline Phosphatase 153 H (46-116) U/L Troponin I High Sens 9.2 (4.0-51.3) pg/mL Total Protein 8.1 (6.4-8.2) g/dL Albumin 2.5 L (3.4-5.0) g/dL Globulin 5.6 g/dL Albumin/Globulin Ratio 0.4 Urine Color Yellow (YELLOW) Urine Clarity Clear (CLEAR) Urine pH 8.5 (5.0-9.0) Ur Specific [place] 1.015 (1.005-1.025) Urine Protein 100 A (NEG/TRACE) mg/dL Urine Glucose (UA) Negative (NEGATIVE) mg/dL Urine Ketones Trace A (NEGATIVE) mg/dL Urine Occult Blood Trace-l (NEGATIVE) Urine Nitrite Positive A (NEGATIVE) Urine Bilirubin Small A (NEGATIVE) Urine Urobilinogen 4.0 A (0.2-1.0) EU/dL Ur Leukocyte Esterase Large A (NEGATIVE) Urine RBC 0-2 (0-2) #/HPF Urine WBC >100 A (NONE SEEN) #/HPF Ur Squamous Epith Cells Few A (NONE/RARE) #/LPF Urine Crystals Seen A (None Seen) #/HPF Calcium Oxalate Crystal Few Triple Phos Crystals Rare Urine Bacteria Large A (NONE SEEN) #/HPF Urine Casts None seen (NONE SEEN) #/LPF Urine Mucus None seen (NONE SEEN) Ur [place] [place] Discharge Chief Complaint: Urogenital-Female Clinical Impression: Alvares catheter in place, UTI (urinary tract infection), Lesa infection of mouth Patient Disposition: Home, Self-Care Time of Disposition Decision: 12:42 Condition: Good Prescriptions / Home Meds: New levofloxacin 750 mg tablet 750 mg PO DAILY 7 Days Qty: 7 0RF nystatin 100,000 unit/mL suspension 500,000 unit PO QID 14 Days Qty: 280 0RF Rx Instructions: Swish in the mouth and retain for as long as possible for several minutes before swallowing No Action gabapentin 800 mg tablet 800 mg PO TID tizanidine 4 mg tablet 4 mg PO Q8H PRN (Reason: muscle spasticity) cephalexin 500 mg capsule furosemide 20 mg tablet buprenorphine-naloxone 8-2 mg film 1 film sublingual Q8H diazepam 5 mg tablet 5 mg PO DAILY duloxetine 30 mg capsule,delayed release(DR/EC) 30 mg PO BID Print Language: [place] Instructions: Urinary Tract Infection in Women (DC), Oral Candidiasis (ED) Additional Instructions: Please make sure you follow-up with your primary care within few days and come back to the ER in case of no improvement Referrals: MAL PEREZ [Primary Care Provider, INTERPRETER] - 1 week Discharge Date/Time: 08/20/25 12:58
[2025-08-20 12:40] VITALS: PULSE 93
[2025-08-20] MEDS: LEVOFLOXACIN 750 MG TABLET PO (12:46)
== END 2025-08-20 12:58 | disposition home or self-care (01) ==
PROVIDERS: Emergency Provider Emergency Medicine; PCP Nurse Practitioner
DX: N39.0 Urinary tract infection, site not specified (principal); Z46.6 Encounter for fitting and adjustment of urinary device; B37.0 Candidal stomatitis; R53.1 Weakness
CPT/HCPCS: 36415; 51702; 71045; 80053; 81001; 84484; 85025; 87086; 87088; 87186; 93005; 99284